=== PATIENT | female | born 1970 | race Hispanic/Latino ===

== ENCOUNTER 2018-01-02 07:34 | Emergency (ER) | payer OTHER ==
--- OUTSIDE RECORDS SUMMARY | 2018-01-02 07:40 | XMS REPORT ---
:1970 Author Organization [employer] Care Team Providers Name Role Phone Aung Dada Provider Role Unavailable Allergies No Known Allergies Problems Problem Type Condition Code Onset Dates Condition Status Problem Depression with anxiety F41.8 Active Problem HTN (hypertension), benign I10 Active Problem Seizures R56.9 Active Problem Dependent on wheelchair Z99.3 Active Problem Coronary artery disease involving I25.709 Active coronary bypass graft of [place] heart with angina pectoris Problem History of right above knee Z89.611 Active amputation Problem Chronic pain disorder G89.4 Active Problem History of CVA (cerebrovascular Z86.73 Active accident) Problem Migraine without aura and without G43.009 Active status migrainosus, not intractable Problem Neuropathy G62.9 Active Problem Type 2 diabetes mellitus with other E11.69 Active specified complication Problem Type 2 diabetes mellitus with E11.65 Active hyperglycemia Problem Hx of CABG Z95.1 Active 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
--- OUTSIDE RECORDS SUMMARY | 2018-01-02 07:40 | XMS REPORT ---
:1970 Author Organization [employer] Care Team Providers Name Role Phone Aung Dada Provider Role Unavailable Allergies, Adverse Reactions, Alerts Substance Reaction Event Type tramadol Info Not Available Drug Allergy Toradol Info Not Available Drug Allergy Problems Problem Type Condition Code Onset Dates Condition Status Assessment Above knee amputation of left lower Z89.612 Active extremity Problem Above knee amputation of left lower Z89.612 Active extremity Assessment History of CVA (cerebrovascular Z86.73 Active accident) Problem Migraine without aura and without G43.009 Active status migrainosus, not intractable Assessment Type 2 diabetes mellitus with E11.65 Active hyperglycemia Problem Type 2 diabetes mellitus with other E11.69 Active specified complication Problem Hx of CABG Z95.1 Active Problem Type 2 diabetes mellitus with E11.65 Active hyperglycemia Problem Chronic pain disorder G89.4 Active Problem History of CVA (cerebrovascular Z86.73 Active accident) 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 Assessment Migraine without aura and without G43.009 Active status migrainosus, not intractable Problem Neuropathy G62.9 Active Assessment Hx of CABG Z95.1 Active Problem Depression with anxiety F41.8 Active Problem 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 Problem HTN (hypertension), benign I10 Active Problem Seizures R56.9 Active Assessment HTN (hypertension), benign I10 Active Assessment Chronic pain disorder G89.4 Active Assessment Neuropathy G62.9 Active Assessment Seizures R56.9 Active Assessment Type 2 diabetes mellitus with other E11.69 Active specified complication Problem Coronary artery disease involving I25.709 Active coronary bypass graft of [place] heart with angina pectoris Assessment Depression with anxiety F41.8 Active Assessment Coronary artery disease involving I25.709 Active coronary bypass graft of [place] heart with angina pectoris Medications Medication Code Code Instructions Start End Status Dosage System Date Date Atorvastatin [facility] 03807212254 40 MG Orally Active 1 tablet Calcium Once a day Lexapro [facility] [place] 82057448353 20 MG Orally Active 1 tablet Once a day Levetiracetam [facility] [place] 14948784086 500 MG Orally Active 1 tablet Twice a day Metoprolol [facility] [place] 60174217667 25 MG Orally Active 1 tablet Tartrate Twice a day with food Ranexa [facility] [place] 30468826591 500 MG Orally Active 1 tablet Twice a day Klor-Con M10 [facility] [place] 90965561372 10 MEQ Orally Active 1 tablet Twice a day with food Insulin Aspart [facility] [place] [address]-08 (70-30) 100 Active 60 units Prot & Aspart UNIT/ML BID Subcutaneous Metformin HCl [facility] [place] 41874577726 500 MG Orally Active 1 tablet Twice a day with meals Aspirin [facility] [place] 91597321336 81 MG Orally Active 1 tablet Once a day Gabapentin [facility] [place] 80382718452 800 MG Orally Active 1 tablet Three times a day Furosemide [facility] [place] 12915082509 20 MG Orally Active 1 tablet Once a day Pantoprazole [facility] [place] 41504451581 40 MG Orally Active 1 tablet Sodium Once a day Duloxetine HCl [facility] [place] 24684468430 30 MG Orally Active 1 capsule Twice a day Xanax [facility] [place] 34858215137 0.5 MG Orally Active 1 tablet Twice a day Clopidogrel [facility] [place] 81354481242 75 MG Orally Active 1 tablet Bisulfate Once a day Results No Known Results Summary Purpose [employer]ClinicalWorks Submission
--- OUTSIDE RECORDS SUMMARY | 2018-01-02 07:40 | XMS REPORT ---
[...] involving I25.709 Active coronary bypass graft of [place] heart with angina pectoris Problem History of right above knee Z89.611 Active amputation Problem Chronic pain disorder G89.4 Active Problem History of CVA (cerebrovascular Z86.73 Active accident) Problem Migraine without aura and without G43.009 Active status migrainosus, not intractable Problem Neuropathy G62.9 Active Assessment History of right above knee Z89.611 Active amputation Assessment Type 2 diabetes mellitus with other E11.69 Active specified complication Problem Type 2 diabetes mellitus with other E11.69 Active specified complication Problem Type 2 diabetes mellitus with E11.65 Active hyperglycemia Assessment Dependent on wheelchair Z99.3 Active Problem Hx of CABG Z95.1 Active 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 Medications Medication Code Code Instructions Start End Status Dosage System Date Date Metoprolol [facility] 20732517871 25 MG Orally Active 1 tablet Tartrate Twice a day with food Pantoprazole [facility] 49975082063 40 MG Orally Active 1 tablet Sodium Once a day Gabapentin [facility] 01990631062 800 MG Orally Active 1 tablet Three times a day Duloxetine HCl [facility] 03949690794 30 MG Orally Active 1 capsule Twice a day Aspirin [facility] 73417216072 81 MG Orally Active 1 tablet Once a day Insulin Aspart [facility] [address]-02 (70-30) 100 Active 60 units Prot & Aspart UNIT/ML BID Subcutaneous Ranexa [facility] 84955819019 500 MG Orally Active 1 tablet Twice a day Levetiracetam [facility] 06406581599 500 MG Orally Active 1 tablet Twice a day Lexapro [facility] 46597926862 20 MG Orally Active 1 tablet Once a day Xanax [facility] 35826936988 0.5 MG Orally Active 1 tablet Twice a day Clopidogrel [facility] 38189560448 75 MG Orally Active 1 tablet Bisulfate Once a day Klor-Con M10 [facility] 98628175182 10 MEQ Orally Active 1 tablet Twice a day with food Furosemide [facility] 34290368864 20 MG Orally Active 1 tablet Once a day Metformin HCl [facility] 97266229323 500 MG Orally Active 1 tablet Twice a day with meals Atorvastatin [facility] 18976654879 40 MG Orally Active 1 tablet Calcium Once a day Results No Known Results Summary Purpose [employer]ClinicalWorks Submission
[2018-01-02] MEDS ORDERED: PHENAZOPYRIDINE 100MG TAB PO ONE (08:23)
[2018-01-02] MEDS ORDERED: NA CHLORIDE 0.9% 1,000 ML ONE (08:24)
[2018-01-02] MEDS ORDERED: CEFTRIAXONE/SWI 1gm 1 GM/10 ML SYR ONE (08:24)
[2018-01-02 08:25] LABS: Urine Blood 2+ (NEG); Urine Glucose 1+ (NEG); Urine Protein 2+ (NEG); Urine Specific Gravity 1.015 (1.005-1.030)
[2018-01-02 08:34] LABS: Urine Bacteria LOADED /HPF (<20); Urine Culture Reflex Order REFLEXED; Urine RBC <5 /HPF (NONE SEEN)
[2018-01-02 08:45] LABS: Absolute Monocytes 0.4 K/uL (0.1-1.3); Absolute Neutrophil 5.2 K/uL (1.8-8.0); Basophils % 1.2 % (0-1.3); Eosinophils % 7.3 % (0-4.4); Hematocrit 43.3 % (36.0-45.0); Lymphocytes % 24.1 % (15.3-44.8); MCH 30.5 pg (27.0-35.0); MCV 88.3 fL (80-100); MPV 8.9 fL (7.6-11.3); Monocytes % 5.3 % (3.3-12.3); RBC Red Blood Cell Count 4.91 M/uL (3.86-4.86)
[2018-01-02] MEDS ORDERED: MORPHINE 4 MG/ML SYR ONE (08:49)
[2018-01-02 09:01] LABS: Albumin 3.1 g/dL (3.4-5.0); Bilirubin Direct 0.1 mg/dL (0-0.2); Bilirubin Total 0.3 mg/dL (0.2-1.0); Protein, Total 7.4 g/dL (6.4-8.2)
--- NOTE | 2018-01-02 09:48 | ER ---
Nurse's Notes [facility] Name: Karen Shah Age: 47 yrs Sex: Female : 1970 Arrival Date: 01/02/2018 Time: 07:40 Bed 6 Private MD: Dada Horan Diagnosis: Urinary tract infection, site not specified Presentation: 01/02 07:48 Presenting complaint: Patient states: unable to urinate since 1300 this morning. Pt ss also reports significant pressure "down there". Denies fever. Pt reports she has had intermittent blood in her urine for months and has been seeing a doctor for this, however they have not figured out what may be going on as of yet. Transition of care: patient was not received from another setting of care. Onset of symptoms was January 02, 2018. Risk Assessment: Do you want to hurt yourself or someone else? Patient reports no desire to harm self or others. Initial Sepsis Screen: Does the patient meet any 2 criteria? No. Patient's initial sepsis screen is negative. Does the patient have a suspected source of infection? No. Patient's initial sepsis screen is negative. Care prior to arrival: 07:48 Method Of Arrival: Wheelchair ss 07:48 Acuity: ARIEL 3 ss Historical: - Allergies: 07:50 Toradol; ss 07:50 tramadol; ss - PMHx: 07:50 CVA; Diabetes - IDDM; Hypertension; Myocardial infarction; CAD; High Cholesterol; ss - PSHx: 07:50 CABG; R AKA; ss - Immunization history:: Adult Immunizations up to date. - Social history:: Smoking status: Patient uses tobacco products, smokes one-half pack cigarettes per day. - Ebola Screening: : Patient denies exposure to infectious person Patient denies travel to an Ebola-affected area in the 21 days before illness onset. Screenin:36 Abuse screen: Denies threats or abuse. Denies injuries from another. Nutritional jl7 screening: No deficits noted. Tuberculosis screening: No symptoms or risk factors identified. Fall Risk IV access (20 points). Assessment: 08:00 General: Appears in no apparent distress. uncomfortable, Behavior is cooperative, jl7 anxious. Pain: Complains of pain in pelvis Pain does not radiate. Pain currently is 9 out of 10 on a pain scale. Quality of pain is described as pressure, Pain began couple weeks ago Is intermittent. Neuro: Level of Consciousness is awake, alert, obeys commands, Oriented to person, place, time, situation. Cardiovascular: Patient's skin is warm and dry. Respiratory: Airway is patent Respiratory effort is even, unlabored, Respiratory pattern is regular, symmetrical. GI: Abdomen is round non-distended, Bowel sounds present X 4 quads. Abd is soft and non tender. : Urine is cloudy, Reports pain urgency, urinary frequency. EENT: No signs and/or symptoms were reported regarding the EENT system. Derm: Skin is pink, warm \\T\\ dry. Musculoskeletal: right BKA. 09:00 Reassessment: No changes from previously documented assessment. Patient and/or family jl7 updated on plan of care and expected duration. Pain level reassessed. Patient is alert, oriented x 3, equal unlabored respirations, skin warm/dry/pink. 09:55 Reassessment: Pt will be discharged once NS infusion is completed. jl7 Vital Signs: 07:50 BP 125 / 84; Pulse 78; Resp 18; Temp 97.0(TE); Pulse Ox 98% on R/A; Weight 77.11 kg; ss Height 5 ft. 4 in. (162.56 cm); 07:51 Pain 10/10; ss 09:00 BP 117 / 65; Pulse 68; Resp 16; Pulse Ox 95% on R/A; jl7 09:41 BP 113 / 63; Pulse 65; Resp 16; Pulse Ox 95% on R/A; jl7 11:04 BP 112 / 74; Pulse 72; Resp 18; Pulse Ox 95% on R/A; ag 07:50 Body Mass Index 29.18 (77.11 kg, 162.56 cm) ED Course: 07:40 Patient arrived in ED. sb2 07:41 Dada Horan DO is Private Physician. sb2 07:47 Isidro Mcdaniel PA is PHCP. cp 07:48 Leopoldo Nixon MD is Attending Physician. cp 07:49 Triage completed. ss 07:50 Arm band placed on right wrist. ss 08:00 Patient has correct armband on for positive identification. Placed in gown. Bed in low jl7 position. Call light in reach. Side rails up X 1. Pulse ox on. NIBP on. 08:00 Bladder scan completed. 0 mL. jl7 08:15 Assisted to bathroom. jl7 08:20 Urine Dipstick--Ancillary (enter results) Sent. ag 08:30 Initial lab(s) drawn, by me, sent to lab. Inserted saline lock: 22 gauge in right jl7 forearm, using aseptic technique. Blood collected. 08:31 Saqib Ren, RN is Primary Nurse. jl7 09:00 Assisted to bathroom. jl7 09:50 Assisted to bathroom. jl7 11:09 IV discontinued, intact, bleeding controlled, No redness/swelling at site. Pressure dm5 dressing applied. 11:10 No provider procedures requiring assistance completed. dm5 Administered Medications: 08:20 Drug: Pyridium 200 mg Route: PO; jl7 09:15 Follow up: Response: No adverse reaction; Pain is unchanged, physician notified jl7 08:42 Drug: NS 0.9% 1000 ml Route: IV; Rate: 1 bolus; Site: right forearm; jl7 08:43 Drug: Rocephin - (cefTRIAXone) 1 grams Route: IVPB; Infused Over: 30 mins; Site: right jl7 forearm; 08:45 Follow up: IV Status: Completed infusion jl7 09:45 Follow up: Response: No adverse reaction jl7 08:45 Drug: morphine 2 mg Route: IVP; Site: right forearm; jl7 09:15 Follow up: Response: No adverse reaction; Pain is unchanged, physician notified jl7 09:58 Drug: Tylenol #3 (300 mg-30 mg) 2 tabs Route: PO; jl7 10:30 Follow up: Response: No adverse reaction; Pain is decreased jl7 Point of Care Testing: Blood Glucose: 07:52 Blood Glucose: 228 mg/dL; ag Ranges: Outcome: 09:47 Discharge ordered by . cp 11:09 Discharged to home via wheelchair, with family. dm5 11:09 Condition: good 11:09 Discharge instructions given to patient, family, Instructed on discharge instructions, follow up and referral plans. medication usage, Demonstrated understanding of instructions, follow-up care, medications, Prescriptions given X 2. 11:10 Patient left the ED. dm5 Signatures: Latonya Gary RN RN dm5 Smirch, Shelby, RN RN ss Gallardo, Ana ag Page, Corey, PA PA cp Leal, Jahala, RN RN jl7 Winter Monteiro sb2 Corrections: (The following items were deleted from the chart) : 09:36 Patient has correct armband on for positive identification. Placed in gown. Bed jl7 in low position. Call light in reach. Side rails up X 1. jl7 : 09:36 Pulse ox on. NIBP on. 7 jl7
--- NOTE | 2018-01-02 09:48 | EDPHYS ---
Physician Documentation [facility] Name: Karen Shah Age: 47 yrs Sex: Female : 1970 Arrival Date: 01/02/2018 Time: 07:40 Bed 6 Private MD: Dada Horan ED Physician Leopoldo Nixon HPI: 01/02 08:17 This 47 yrs old Female presents to ER via Wheelchair with complaints of cp Urinary Problem. 08:17 The patient presents with urinary symptoms, dysuria, frequency, urgency, suprapubic cp pain. Onset: The symptoms/episode began/occurred this morning. Associated signs and symptoms: Pertinent negatives: constipation, diarrhea, fever, vaginal bleeding, vaginal discharge, vomiting. Severity of symptoms: in the emergency department the symptoms are unchanged, despite home interventions. 08:17 Patient reports she is currently taking unknown antibiotic. cp Historical: - Allergies: 07:50 Toradol; ss 07:50 tramadol; ss - PMHx: 07:50 CVA; Diabetes - IDDM; Hypertension; Myocardial infarction; CAD; High Cholesterol; ss - PSHx: 07:50 CABG; R AKA; ss - Immunization history:: Adult Immunizations up to date. - Social history:: Smoking status: Patient uses tobacco products, smokes one-half pack cigarettes per day. - Ebola Screening: : Patient denies exposure to infectious person Patient denies travel to an Ebola-affected area in the 21 days before illness onset. ROS: 08:20 Constitutional: Negative for body aches, chills, fever, poor PO intake. cp 08:20 Eyes: Negative for injury, pain, redness, and discharge. cp 08:20 ENT: Negative for drainage from ear(s), ear pain, sore throat, difficulty swallowing, difficulty handling secretions. 08:20 Neck: Negative for pain with movement, pain at rest, stiffness, tenderness. 08:20 Cardiovascular: Negative for chest pain, edema, palpitations. 08:20 Respiratory: Negative for cough, shortness of breath, wheezing. 08:20 Abdomen/GI: Negative for nausea, vomiting, and diarrhea, constipation, anorexia, black/tarry stool, rectal bleeding. 08:20 : Positive for urinary symptoms, suprapubic pain, Negative for flank pain, vaginal bleeding, vaginal discharge. 08:20 Skin: Negative for cellulitis, rash. 08:20 Neuro: Negative for altered mental status, headache, syncope, near syncope, weakness. 08:20 All other systems are negative. Exam: 08:27 Constitutional: The patient appears in no acute distress, alert, awake, non-toxic, well cp developed, well nourished, uncomfortable. 08:27 Head/Face: Normocephalic, atraumatic. cp 08:27 Eyes: Periorbital structures: appear normal, Conjunctiva: normal, no exudate, no injection, Lids and lashes: appear normal, bilaterally. 08:27 ENT: External ear(s): are unremarkable, TM's: are normal, no evidence of bulging, no dullness, no erythema, Nose: is normal, Mouth: Lips: moist, Oral mucosa: pink and intact, moist, Posterior pharynx: is normal, airway is patent. 08:27 Neck: ROM/movement: is normal, is supple, without pain, no range of motions limitations, no nuchal rigidity. 08:27 Chest/axilla: Inspection: normal, Palpation: is normal, no crepitus, no tenderness. 08:30 Cardiovascular: Rate: normal, Rhythm: regular. cp 08:30 Respiratory: the patient does not display signs of respiratory distress, Respirations: cp normal, no use of accessory muscles, no retractions, no splinting, no tachypnea, labored breathing, is not present, Breath sounds: are clear throughout, no decreased breath sounds, no stridor, no wheezing. 08:30 Abdomen/GI: Inspection: abdomen appears normal, Bowel sounds: active, all quadrants, Palpation: soft, in all quadrants, severe abdominal tenderness, in the suprapubic area, rebound tenderness, is not appreciated, voluntary guarding, is elicited in the suprapubic area, involuntary guarding, is not appreciated. 08:30 Back: pain, is absent, ROM is normal, CVA tenderness, is absent. 08:30 Skin: cellulitis, is not appreciated, no rash present. Vital Signs: 07:50 BP 125 / 84; Pulse 78; Resp 18; Temp 97.0(TE); Pulse Ox 98% on R/A; Weight 77.11 kg; ss Height 5 ft. 4 in. (162.56 cm); 07:51 Pain 10/10; ss 09:00 BP 117 / 65; Pulse 68; Resp 16; Pulse Ox 95% on R/A; jl7 09:41 BP 113 / 63; Pulse 65; Resp 16; Pulse Ox 95% on R/A; jl7 11:04 BP 112 / 74; Pulse 72; Resp 18; Pulse Ox 95% on R/A; ag 07:50 Body Mass Index 29.18 (77.11 kg, 162.56 cm) ss MDM: 07:48 Patient medically screened. cp 08:19 Differential diagnosis: kidney stone, pelvic inflammatory disease, urinary tract cp infection, sepsis, pyelonephritis. 09:45 Data reviewed: vital signs, nurses notes, old medical records, lab test result(s), and cp as a result, I will discharge patient. 09:45 Counseling: I had a detailed discussion with the patient and/or guardian regarding: the cp historical points, exam findings, and any diagnostic results supporting the discharge/admit diagnosis, lab results, the need for outpatient follow up, a family practitioner, to return to the emergency department if symptoms worsen or persist or if there are any questions or concerns that arise at home. Response to treatment: the patient's symptoms have markedly improved after treatment, and as a result, I will discharge patient. 01/02 07:52 Order name: Glucose, Ancillary Testing; Complete Time: 08:42 EDMS 01/02 08:42 Interpretation: Abnormal: GLUC,ANCIL 228. cp 08 07:55 Order name: Amylase, Serum; Complete Time: 09:32 cp 01/02 07:55 Order name: Basic Metabolic Panel; Complete Time: 09:32 cp 01/02 07:55 Order name: CBC with Diff; Complete Time: 09:32 cp 01/02 07:55 Order name: Creatinine for Radiology; Complete Time: 09:32 cp 01/02 07:55 Order name: Hepatic Function; Complete Time: 09:32 cp 01/02 07:55 Order name: Lipase; Complete Time: 09:32 cp 01/02 07:55 Order name: Urine Microscopic Only; Complete Time: 08:42 cp 08 08:42 Interpretation: Normal except: UWBC TNTC; UBACT LOADED. cp 08 07:55 Order name: Test, Serum; Complete Time: 09:32 cp 01/02 08:09 Order name: Urine Dipstick--Ancillary (enter results); Complete Time: 08:42 eb 01/02 08:42 Interpretation: Normal except: UGLUC 1+; UBLD 2+; UPROT 2+; U NIT POSITIVE; UESTR 3+. cp 01/02 08:23 Order name: Procalcitonin; Complete Time: 09:42 cp 01/02 09:43 Interpretation: Within normal limits: Procalcitonin < 0.05. cp 01/02 08:23 Order name: Lactate; Complete Time: 09:32 cp 01/02 08:23 Order name: Blood Culture Adult (2) cp 01/02 08:36 Order name: Urine Culture EDMS 01/02 07:48 Order name: Accucheck Blood Glucose; Complete Time: 07:53 cp 01/02 07:48 Order name: Bladder Scanner: pre and post urination; Complete Time: 09:49 cp 01/02 07:55 Order name: IV Saline Lock; Complete Time: 09:49 cp 01/02 07:55 Order name: Labs collected and sent; Complete Time: 09:49 cp 01/02 07:55 Order name: Urine Dipstick-Ancillary (obtain specimen); Complete Time: 09:49 cp Administered Medications: 08:20 Drug: Pyridium 200 mg Route: PO; jl7 09:15 Follow up: Response: No adverse reaction; Pain is unchanged, physician notified jl7 08:42 Drug: NS 0.9% 1000 ml Route: IV; Rate: 1 bolus; Site: right forearm; jl7 08:43 Drug: Rocephin - (cefTRIAXone) 1 grams Route: IVPB; Infused Over: 30 mins; Site: right jl7 forearm; 08:45 Follow up: IV Status: Completed infusion jl7 09:45 Follow up: Response: No adverse reaction jl7 08:45 Drug: morphine 2 mg Route: IVP; Site: right forearm; jl7 09:15 Follow up: Response: No adverse reaction; Pain is unchanged, physician notified jl7 09:58 Drug: Tylenol #3 (300 mg-30 mg) 2 tabs Route: PO; jl7 10:30 Follow up: Response: No adverse reaction; Pain is decreased jl7 Point of Care Testing: Blood Glucose: 07:52 Blood Glucose: 228 mg/dL; ag Ranges: Critical Glucose Levels:Adult <50 mg/dl or >400 mg/dl <40 mg/dl or >180 mg/dl Disposition: 18:39 Co-signature as Attending Physician, Leopoldo Nixon MD. rn Disposition: 01/02/18 09:47 Discharged to Home. Impression: Urinary tract infection, site not specified. - Condition is Stable. - Discharge Instructions: Urinary Tract Infection, Adult. - Prescriptions for Pyridium 200 mg Oral Tablet - take 1 tablet by ORAL route every 8 hours for 2 days; 6 tablet. cefpodoxime 200 mg Oral Tablet - take 1 tablet by ORAL route every 12 hours for 10 days with food; 20 tablet. - Work release form, Family Work Release, Medication Reconciliation Form, Thank You Letter, Antibiotic Education, Prescription Opioid Use form. - Follow up: Private Physician; When: 2 - 3 days; Reason: Recheck today's complaints. - Problem is an ongoing problem. - Symptoms have improved. Signatures: Dispatcher [employer] EDDE Latonya Gary RN RN dm5 Leopoldo Nixon MD MD rn Smirch, Shelby, RN RN ss Page, Corey, PA PA cp Leal, Jahala RN RN jl7 Corrections: (The following items were deleted from the chart) 11:10 09:47 01/02/2018 09:47 Discharged to Home. Impression: Urinary tract infection, site dm5 not specified. Condition is Stable. Forms are Medication Reconciliation Form, Thank You Letter, Antibiotic Education, Prescription Opioid Use. Follow up: Private Physician; When: 2 - 3 days; Reason: Recheck today's complaints. Problem is an ongoing problem. Symptoms have improved. cp 01/03 10:03 01/02 08:27 Cardiovascular: Rate: cp cp
[2018-01-02] MEDS ORDERED: CODEINE 30MG/APAP 300MG TAB ONE (09:58)
[2018-01-02 11:14] VITALS: TEMP 97
[2018-01-02 11:16] VITALS: O2SAT 95
[2018-01-02 11:18] VITALS: BP 112/74
== END 2018-01-02 11:10 | disposition home or self-care (01) ==
LOC: ER 07:34
DX: N39.0 Urinary tract infection, site not specified (principal); I10 Essential (primary) hypertension; F17.210 Nicotine dependence, cigarettes, uncomplicated; Z88.5 Allergy status to narcotic agent; Z88.6 Allergy status to analgesic agent; Z95.1 Presence of aortocoronary bypass graft
CPT/HCPCS: 36415; 80048; 80076; 82150; 82962; 83605; 83690; 84145; 84703; 85025; 87040 ×2; 87086; 87088; J0696; J7030; 81003; 81015; 96374; 96375; 99284

== ENCOUNTER 2018-06-07 23:24 | Observation (INO) | payer OTHER ==
--- OUTSIDE RECORDS SUMMARY | 2018-06-07 23:26 | XMS REPORT ---
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 Medications Medication Code Code Instructions Start End Status Dosage System Date Date Metoprolol [facility] 74782059427 25 MG Orally Active 1 tablet Tartrate Twice a day with food Pantoprazole [facility] 35525968028 40 MG Orally Active 1 tablet Sodium Once a day Gabapentin [facility] 05373474484 800 MG Orally Active 1 tablet Three times a day Duloxetine HCl [facility] 03601461167 30 MG Orally Active 1 capsule Twice a day Aspirin [facility] 94451295700 81 MG Orally Active 1 tablet Once a day Insulin Aspart [facility] [address]-71 (70-30) 100 Active 60 units Prot & Aspart UNIT/ML BID Subcutaneous Ranexa [facility] 05191823012 500 MG Orally Active 1 tablet Twice a day Levetiracetam [facility] 26796814239 500 MG Orally Active 1 tablet Twice a day Lexapro [facility] 33066795755 20 MG Orally Active 1 tablet Once a day Xanax [facility] 17908851101 0.5 MG Orally Active 1 tablet Twice a day Clopidogrel [facility] 86582073198 75 MG Orally Active 1 tablet Bisulfate Once a day Klor-Con M10 [facility] 36411338316 10 MEQ Orally Active 1 tablet Twice a day with food Furosemide [facility] 73925727439 20 MG Orally Active 1 tablet Once a day Metformin HCl [facility] 49658779004 500 MG Orally Active 1 tablet Twice a day with meals Atorvastatin [facility] 91952897738 40 MG Orally Active 1 tablet Calcium Once a day Results No Known Results Summary Purpose eClinicalWorks Submission
--- OUTSIDE RECORDS SUMMARY | 2018-06-07 23:26 | XMS REPORT ---
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 Problem HTN (hypertension), benign I10 Active Problem Seizures R56.9 Active Assessment HTN (hypertension), benign I10 Active Assessment Chronic pain disorder G89.4 Active Assessment Neuropathy G62.9 Active Assessment Seizures R56.9 Active Assessment Type 2 diabetes mellitus with other E11.69 Active specified complication Problem Coronary artery disease involving I25.709 Active coronary bypass graft of [place] heart with angina pectoris Assessment Depression with anxiety F41.8 Active Assessment Coronary artery disease involving I25.709 Active coronary bypass graft of [place] heart with angina pectoris Medications Medication Code Code Instructions Start End Status Dosage System Date Date Atorvastatin [facility] 07380686472 40 MG Orally Active 1 tablet Calcium Once a day Lexapro [facility] 78522561092 20 MG Orally Active 1 tablet Once a day Levetiracetam [facility] 06331142043 500 MG Orally Active 1 tablet Twice a day Metoprolol [facility] 66457529005 25 MG Orally Active 1 tablet Tartrate Twice a day with food Ranexa [facility] 81602655619 500 MG Orally Active 1 tablet Twice a day Klor-Con M10 [facility] 59224462768 10 MEQ Orally Active 1 tablet Twice a day with food Insulin Aspart [facility] [address]-51 (70-30) 100 Active 60 units Prot & Aspart UNIT/ML BID Subcutaneous Metformin HCl [facility] 97777543459 500 MG Orally Active 1 tablet Twice a day with meals Aspirin [facility] 04390175742 81 MG Orally Active 1 tablet Once a day Gabapentin [facility] 19676119064 800 MG Orally Active 1 tablet Three times a day Furosemide [facility] 73535290983 20 MG Orally Active 1 tablet Once a day Pantoprazole [facility] 12950297776 40 MG Orally Active 1 tablet Sodium Once a day Duloxetine HCl [facility] 17871070029 30 MG Orally Active 1 capsule Twice a day Xanax [facility] 72874644078 0.5 MG Orally Active 1 tablet Twice a day Clopidogrel [facility] 20334559983 75 MG Orally Active 1 tablet Bisulfate Once a day Results No Known Results Summary Purpose eClinicalWorks Submission
--- OUTSIDE RECORDS SUMMARY | 2018-06-07 23:26 | XMS REPORT ---
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
--- OUTSIDE RECORDS SUMMARY | 2018-06-07 23:26 | XMS REPORT ---
:1970 [facility] Address [address] [place] [address] Care Team Providers Name Role Phone Unavailable Unavailable Unavailable Problems This patient has no known problems. Allergies, Adverse Reactions, Alerts This patient has no known allergies or adverse reactions. Medications This patient has no known medications.
[2018-06-08] MEDS ORDERED: ASPIRIN 81 MG CHEWABLE TABLET ONE (00:23)
[2018-06-08 00:33] LABS: Absolute Lymphocytes (CBC) 2.6 K/uL (0.7-4.9); Absolute Monocytes 0.6 K/uL (0.1-1.3); Absolute Neutrophil 6.9 K/uL (1.8-8.0); Basophils % 0.8 % (0-1.3); Eosinophils % 3.8 % (0-4.4); Hematocrit 45.4 % (36.0-45.0); Lymphocytes % 24.4 % (15.3-44.8); MPV 9.4 fL (7.6-11.3); RBC Red Blood Cell Count 5.01 M/uL (3.86-4.86)
[2018-06-08 00:50] LABS: ALT/SGPT 23 U/L (12-78); AST/SGOT 12 U/L (15-37); Albumin 3.2 g/dL (3.4-5.0); Alkaline Phosphatase 97 U/L (45-117); BUN Blood Urea Nitrogen 17 mg/dL (7-18); Bicarbonate 26 mmol/L (21-32); Bilirubin Direct < 0.1 mg/dL (0-0.2); Bilirubin Total 0.4 mg/dL (0.2-1.0); Glucose Level 273 mg/dL (74-106); NT PRO-BNP 387 pg/mL (<125); Potassium 3.4 mmol/L (3.5-5.1); Protein, Total 7.5 g/dL (6.4-8.2); Sodium Level 136 mmol/L (136-145); Troponin (Emerg Dept Use Only) < 0.02 ng/mL (0.0-0.045)
[2018-06-08] MEDS ORDERED: ONDANSETRON 4 MG/2 ML VIAL ONE ×2 (00:50→08:26)
--- NOTE | 2018-06-08 01:54 | EDPHYS ---
Physician Documentation [facility] Name: Karen Shah Age: 48 yrs Sex: Female : 1970 Arrival Date: 06/07/2018 Time: 23:28 Bed 7 Private MD: ED Physician Trevor Salamanca HPI: 06/08 01:29 This 48 yrs old Female presents to ER via EMS with complaints of Altered ca Mental Status, Chest Pain. 01:29 The patient or guardian reports chest pain that is located primarily in the substernal ca area. Onset: 4 day(s) ago, on and off. The pain does not radiate. Associated signs and symptoms: Pertinent positives: shortness of breath, Pertinent negatives: cough, syncope, vomiting. The chest pain is described as a pressure. Duration: The patient or guardian reports multiple episodes, that wax and wane, the episodes last approximately 20 minute(s). Modifying factors: The symptoms are alleviated by nothing. the symptoms are aggravated by nothing. Severity of pain: At its worst the pain was moderate in the emergency department the pain has resolved. The patient has experienced similar episodes in the past, several times, h/o ND. The patient has not recently seen a physician. per EMS, pt showed AMS at their arrival with waxing and waning symptoms. . 01:54 EMS care prior to arrival includes: transported pt. ca Historical: - Allergies: 06/07 23:35 Toradol; tl2 23:35 tramadol; tl2 - Home Meds: 23:35 gabapentin oral oral [Active]; atorvastatin oral oral [Active]; [place] Oral [Active]; tl2 Furosemide Oral [Active]; clopidogrel oral oral [Active]; Isosorbide Mononitrate Oral [Active]; duloxetine oral oral [Active]; Metformin Oral [Active]; escitalopram oxalate oral oral [Active]; Nitroglycerin TD [Active]; - PMHx: 23:35 CAD; CVA; Diabetes - IDDM; High Cholesterol; Hypertension; Myocardial infarction; tl2 - PSHx: 23:35 triple bypass; tl2 - Immunization history:: Adult Immunizations up to date. - Social history:: Smoking status: Patient/guardian denies using tobacco. - Ebola Screening: : No symptoms or risks identified at this time. ROS: 06/08 01:35 Constitutional: Negative for fever, chills, and weight loss, Eyes: Negative for injury, wa pain, redness, and discharge, ENT: Negative for injury, pain, and discharge, Neck: Negative for injury, pain, and swelling, Respiratory: Negative for shortness of breath, cough, wheezing, and pleuritic chest pain, Abdomen/GI: Negative for abdominal pain, nausea, vomiting, diarrhea, and constipation, Back: Negative for injury and pain, : Negative for injury, bleeding, discharge, and swelling, MS/Extremity: Negative for injury and deformity, Skin: Negative for injury, rash, and discoloration, Neuro: Negative for headache, weakness, numbness, tingling, and seizure, Psych: Negative for depression, anxiety, suicide ideation, homicidal ideation, and hallucinations. Cardiovascular: Positive for chest pain, Negative for edema, orthopnea, palpitations. All other systems are negative. Exam: 01:35 Constitutional: This is a well developed, well nourished patient who is awake, alert, wa and in no acute distress. Head/Face: Normocephalic, atraumatic. Eyes: Pupils equal round and reactive to light, extra-ocular motions intact. Lids and lashes normal. Conjunctiva and sclera are non-icteric and not injected. Cornea within normal limits. Periorbital areas with no swelling, redness, or edema. ENT: Nares patent. No nasal discharge, no septal abnormalities noted. Tympanic membranes are normal and external auditory canals are clear. Oropharynx with no redness, swelling, or masses, exudates, or evidence of obstruction, uvula midline. Mucous membranes moist. Neck: Trachea midline, no thyromegaly or masses palpated, and no cervical lymphadenopathy. Supple, full range of motion without nuchal rigidity, or vertebral point tenderness. No Meningismus. Chest/axilla: Normal chest wall appearance and motion. Nontender with no deformity. No lesions are appreciated. Respiratory: Lungs have equal breath sounds bilaterally, clear to auscultation and percussion. No rales, rhonchi or wheezes noted. No increased work of breathing, no retractions or nasal flaring. Abdomen/GI: Soft, non-tender, with normal bowel sounds. No distension or tympany. No guarding or rebound. No evidence of tenderness throughout. Back: No spinal tenderness. No costovertebral tenderness. Full range of motion. Skin: Warm, dry with normal turgor. Normal color with no rashes, no lesions, and no evidence of cellulitis. MS/ Extremity: Pulses equal, no cyanosis. Neurovascular intact. Full, normal range of motion. Neuro: Awake and alert, GCS 15, oriented to person, place, time, and situation. Cranial nerves II-XII grossly intact. Motor strength 5/5 in all extremities. Sensory grossly intact. Cerebellar exam normal. Normal gait. Psych: Awake, alert, with orientation to person, place and time. Behavior, mood, and affect are within normal limits. 01:35 Cardiovascular: Rate: normal, Rhythm: regular, Pulses: no pulse deficits are appreciated, Heart sounds: normal, Edema: is not appreciated. Vital Signs: 06/07 23:35 BP 147 / 77; Pulse 91; Resp 20; Temp 98.5(O); Pulse Ox 96% on R/A; Weight 77.11 kg; tl2 Height 5 ft. 4 in. (162.56 cm); Pain 01/05; 06/08 00:17 BP 128 / 80; Pulse 99; Resp 17; Pulse Ox 99% on R/A; ea 01:15 BP 114 / 73; Pulse 109; Resp 18; Pulse Ox 98% on R/A; ea 02:00 BP 102 / 67; Pulse 101; Resp 18; Pulse Ox 97% on R/A; ea 06:11 BP 90 / 62; Pulse 99; Resp 19; Pulse Ox 94% on R/A; tl2 06/07 23:35 Body Mass Index 29.18 (77.11 kg, 162.56 cm) tl2 MDM: 06/07 23:49 Patient medically screened. wa 06/08 01:35 Differential diagnosis: work up to r/o acute cardiopulm. pathology. will admit for r/o wa ACS if negative. 01:52 Data reviewed: vital signs, nurses notes, lab test result(s), EKG, radiologic studies. ca Test interpretation: by ED physician or midlevel provider: EKG: HR 99. LVH. diffuse ST-T changes. Response to treatment: the patient's symptoms have markedly improved after treatment. Physician consultation: Audi Benitez MD. 01:56 Data reviewed: lab test result(s). Test interpretation: by ED physician or midlevel ca provider: hyperglycemia. CXR: no acute process. 06/08 00:09 Order name: Basic Metabolic Panel; Complete Time: 01:49 ca 06/08 00:09 Order name: CBC with Diff; Complete Time: :49 ca 06/08 00:09 Order name: LFT's; Complete Time: :49 ca 06/08 00:09 Order name: NT PRO-BNP; Complete Time: :49 ca 06/08 00:09 Order name: PT-INR ca 06/08 00:09 Order name: Troponin (emerg Dept Use Only); Complete Time: :49 ca 06/08 00:09 Order name: XRAY Chest (1 view) ca 06/08 08:21 Order name: Troponin I [facility] 06/08 08:21 Order name: Lipid Profile [facility] 06/08 08:37 Order name: Hemoglobin A1c [facility] 06/08 08:58 Order name: Urine Dipstick--Ancillary (enter results) 06/08 09:00 Order name: Urine --Ancillary (enter results) 06/08 09:14 Order name: Urine --Ancillary [facility] 06/08 09:17 Order name: Urine Dipstick-Ancillary [facility] 06/08 00:09 Order name: EKG; Complete Time: 00: ca 06/08 00:09 Order name: Cardiac monitoring; Complete Time: 00: ca 06/08 00:09 Order name: EKG - Nurse/Tech; Complete Time: 00: ca 06/08 00:09 Order name: IV Saline Lock; Complete Time: 00: ca 06/08 00:09 Order name: Labs collected and sent; Complete Time: 00: ca 06/08 00:09 Order name: O2 Per Protocol; Complete Time: 00: ca 06/08 00:09 Order name: O2 Sat Monitoring; Complete Time: 00:10 ca Administered Medications: 00:16 Drug: Aspirin Chewable Tablet 162 mg Route: PO; ea 00:44 Follow up: Response: No adverse reaction ea 00:44 Drug: Zofran 4 mg Route: IVP; Site: left antecubital; ea 01:15 Follow up: Response: No adverse reaction; Nausea is decreased ea 02:30 Drug: morphine 4 mg Route: IVP; Site: left antecubital; ea 03:00 Follow up: Response: No adverse reaction; Pain is decreased tl2 05:00 Drug: morphine 2 mg Route: IVP; Site: left antecubital; tl2 05:30 Follow up: Response: No adverse reaction; Pain is decreased tl2 Disposition: 06/08/18 01:54 Hospitalization ordered by Audi Benitez for Observation. Preliminary diagnosis are Chest pain, Hyperglycemia. - Bed requested for Telemetry/MedSurg (observation). - Status is Observation. aj1 - Condition is Stable. - Problem is new. - Symptoms have improved. UTI on Admission? No Signatures: Dispatcher [employer] EDMS Anjali Cespedes Angela, RN RN aj1 Syeda Steen RN Marlen Burgess RN CHIDI tl2 Diana Miranda RN RN ea Appiah, William, MD MD wa Corrections: (The following items were deleted from the chart) 05:38 01:54 Hospitalization Ordered by Audi Benitez MD for Observation. Preliminary kl diagnosis is Chest pain; Hyperglycemia. Bed requested for Telemetry/MedSurg (observation). Status is Observation. Condition is Stable. Problem is new. Symptoms have improved. UTI on Admission? No. wa 11:39 05:38 06/08/2018 01:54 Hospitalization Ordered by Audi Benitez MD for Observation. bd Preliminary diagnosis is Chest pain; Hyperglycemia. Bed requested for [facility] ER HOLD. Status is Observation. Condition is Stable. Problem is new. Symptoms have improved. UTI on Admission? No. kl 13:05 11:39 06/08/2018 01:54 Hospitalization Ordered by Audi Benitez MD for Observation. aj1 Preliminary diagnosis is Chest pain; Hyperglycemia. Bed requested for Telemetry/MedSurg (observation). Status is Observation. Condition is Stable. Problem is new. Symptoms have improved. UTI on Admission? No. bd
--- NOTE | 2018-06-08 01:54 | ER ---
Nurse's Notes [facility] Name: Karen Shah Age: 48 yrs Sex: Female : 1970 Arrival Date: 06/07/2018 Time: 23:28 Bed 7 Private MD: Diagnosis: Chest pain;Hyperglycemia Presentation: 06/07 23:29 Presenting complaint: EMS states: Called out for chest pain, during assessment pt would tl2 become altered and not answer questions but would become oriented after a few minutes. Pt is answering questions in triage and c/o headache. States she took all of her home meds tonight like normal. Transition of care: patient was not received from another setting of care. Onset of symptoms was June 07, 2018 at 23:00. Risk Assessment: Do you want to hurt yourself or someone else? Patient reports no desire to harm self or others. Initial Sepsis Screen: Does the patient meet any 2 criteria? No. Patient's initial sepsis screen is negative. Does the patient have a suspected source of infection? No. Patient's initial sepsis screen is negative. Care prior to arrival: None. 23:29 Method Of Arrival: EMS: [facility] tl2 23:29 Acuity: ARIEL 3 tl2 Triage Assessment: 23:35 General: Appears in no apparent distress. uncomfortable, Behavior is calm, cooperative, tl2 appropriate for age. Pain: Complains of pain in headache. Neuro: Level of Consciousness is awake, alert, obeys commands, Oriented to person, place, time, Social Service Assistant are equal bilaterally Speech is normal, Facial symmetry appears normal. Cardiovascular: Reports chest pain, Rhythm is sinus rhythm. Respiratory: Reports shortness of breath Airway is patent Respiratory effort is even, unlabored, Respiratory pattern is regular, symmetrical. GI: No signs and/or symptoms were reported involving the gastrointestinal system. : No signs and/or symptoms were reported regarding the genitourinary system. Derm: Skin is pink, warm \T\ dry. Historical: - Allergies: 23:35 Toradol; tl2 23:35 tramadol; tl2 - Home Meds: 23:35 gabapentin oral oral [Active]; atorvastatin oral oral [Active]; [place] Oral [Active]; tl2 Furosemide Oral [Active]; clopidogrel oral oral [Active]; Isosorbide Mononitrate Oral [Active]; duloxetine oral oral [Active]; Metformin Oral [Active]; escitalopram oxalate oral oral [Active]; Nitroglycerin TD [Active]; - PMHx: 23:35 CAD; CVA; Diabetes - IDDM; High Cholesterol; Hypertension; Myocardial infarction; tl2 - PSHx: 23:35 triple bypass; tl2 - Immunization history:: Adult Immunizations up to date. - Social history:: Smoking status: Patient/guardian denies using tobacco. - Ebola Screening: : No symptoms or risks identified at this time. Screenin:37 Abuse screen: Denies threats or abuse. Nutritional screening: No deficits noted. tl2 Tuberculosis screening: No symptoms or risk factors identified. Fall Risk Gait- Impaired (20 pts.). Assessment: 23:43 General: see triage assessment. tl2 06/08 00:17 Reassessment: Patient and/or family updated on plan of care and expected duration. Pain ea level reassessed. Patient is alert, oriented x 3, equal unlabored respirations, skin warm/dry/pink. 00:51 Reassessment: Patient and/or family updated on plan of care and expected duration. Pain ea level reassessed. Patient is alert, oriented x 3, equal unlabored respirations, skin warm/dry/pink. Pt complaining of nausea provider notified, medication order obtained, medication administered, pt tolerated well. 01:36 Reassessment: Patient and/or family updated on plan of care and expected duration. Pain ea level reassessed. Patient is alert, oriented x 3, equal unlabored respirations, skin warm/dry/pink. 02:30 Reassessment: Pt complaining of back pain, provider notified, medication order ea obtained, medication administered, pt tolerated well. 02:47 Reassessment: Patient and/or family updated on plan of care and expected duration. Pain ea level reassessed. Patient is alert, oriented x 3, equal unlabored respirations, skin warm/dry/pink. Pt reports pain has decreased. Vital Signs: 06/07 23:35 BP 147 / 77; Pulse 91; Resp 20; Temp 98.5(O); Pulse Ox 96% on R/A; Weight 77.11 kg; tl2 Height 5 ft. 4 in. (162.56 cm); Pain 10; 06/08 00:17 BP 128 / 80; Pulse 99; Resp 17; Pulse Ox 99% on R/A; ea 01:15 BP 114 / 73; Pulse 109; Resp 18; Pulse Ox 98% on R/A; ea 02:00 BP 102 / 67; Pulse 101; Resp 18; Pulse Ox 97% on R/A; ea 06:11 BP 90 / 62; Pulse 99; Resp 19; Pulse Ox 94% on R/A; tl2 06/07 23:35 Body Mass Index 29.18 (77.11 kg, 162.56 cm) tl2 ED Course: 06/07 23:28 Patient arrived in ED. tl2 23:31 Triage completed. tl2 23:35 Arm band placed on right wrist. tl2 23:37 Patient has correct armband on for positive identification. Placed in gown. Bed in low tl2 position. Call light in reach. Side rails up X2. 23:42 Inserted saline lock: 20 gauge in left antecubital area, using aseptic technique. Blood tl2 collected. placed by CHIDI Ortiz. 23:49 Trevor Salamanca MD is Attending Physician. 06/08 00:20 X-ray completed. Portable x-ray completed in exam room. Patient tolerated procedure kw well. 00:23 XRAY Chest (1 view) In Process Unspecified. EDMS 00:51 Diana Miranda RN is Primary Nurse. ea 01:53 Audi Benitez MD is Hospitalizing Provider. wa 01:58 No provider procedures requiring assistance completed. Patient admitted, IV remains in ea place. 07:00 Report given to Irineo MURILLO. ea 11:09 Echocardiogram with Doppler done. tc Administered Medications: 00:16 Drug: Aspirin Chewable Tablet 162 mg Route: PO; ea 00:44 Follow up: Response: No adverse reaction ea 00:44 Drug: Zofran 4 mg Route: IVP; Site: left antecubital; ea 01:15 Follow up: Response: No adverse reaction; Nausea is decreased ea 02:30 Drug: morphine 4 mg Route: IVP; Site: left antecubital; ea 03:00 Follow up: Response: No adverse reaction; Pain is decreased tl2 05:00 Drug: morphine 2 mg Route: IVP; Site: left antecubital; tl2 05:30 Follow up: Response: No adverse reaction; Pain is decreased tl2 Outcome: 01:54 Decision to Hospitalize by Provider. wa 06:12 Admitted to ER Hold. Please see [facility] for further documentation. tl2 06:12 Condition: stable 06:12 Instructed on the need for admit. 13:05 Patient left the ED. aj1 Signatures: Dispatcher [employer] EDAmanda Perez, RN RN aj1 Lesli Lopez Tiffany, meal cooker EKG Ttc Marlen Zamudio RN RN tl2 Diana Miranda RN RN Trevor Hauser MD MD wa
[2018-06-08] MEDS ORDERED: MORPHINE 4 MG/ML SYR ONE ×2 (02:35→05:06)
[2018-06-08] MEDS ORDERED: NITROGLYCERIN 0.4 MG/TAB SL PRN (03:27)
--- NOTE | 2018-06-08 03:36 | P.HP ---
Certification for Inpatient Patient admitted to: Observation With expected LOS: <2 Midnights Practitioner: I am a practitioner with admitting privileges, knowledge of patient current condition, hospital course, and medical plan of care. Services: Services provided to patient in accordance with Admission requirements found in Title 42 Section 412.3 of the Code of Federal Regulations Patient History Date of Service: 06/08/18 Reason for admission: chest pain History of Present Illness: Ms Shah is a 48 years old woman with history of IDDM, right BKA, peripheral neuropathy, HTN, CAD s/p CABG x 3, last left heart cath was done on 05/17/17 showing severe diffuse CAD, at this time she did not have any stent placement, it was decided to continue medical treatment. She has history of chronic pain syndrome, she goes to a pain management physician. The patient came to ED today complaining of chest pain. The pain is substernal, pressure like, radiated to the back, associated with nausea and SOB, similar to previous episode when she had a heart attack, lasting for 7 minutes, about 8/10 of intensity. At the moment she is chest pain free. Initial trop I is negative. EKG shows no acute ST -T changes. Allergies tramadol Allergy (Mild, Verified 05/16/17 02:57) Rash ketorolac Allergy (Verified 05/16/17 02:57) Unknown Home medications list reviewed: Yes Home Medications: Alprazolam [Xanax] 0.5 mg PO DAILY PRN 05/15/17 Insulin Glargine,Hum.rec.anlog [[place] Solostar] 120 units SQ BEDTIME 05/15/17 Ranolazine [Ranexa] 500 mg PO BID 05/15/17 Aspirin 81 mg PO DAILY #30 tab.chew 05/16/17 Atorvastatin Calcium [Lipitor] 40 mg PO BEDTIME #30 tab 05/16/17 Clopidogrel Bisulfate [Plavix] 75 mg PO DAILY #30 tablet 05/16/17 Duloxetine HCl 30 mg PO DAILY #30 capsule. 05/16/17 Escitalopram Oxalate [Lexapro] 20 mg PO DAILY #30 tablet 05/16/17 Furosemide 20 mg PO DAILY #30 tablet 05/16/17 Gabapentin 800 mg PO TID #120 tablet 05/16/17 Metformin HCl 500 mg PO BID #60 tablet 05/16/17 Metoprolol Tartrate [Lopressor*] 25 mg PO DAILY #30 tab 05/16/17 Pantoprazole [Protonix Tab*] 40 mg PO DAILY #30 tab 05/16/17 Potassium Chloride [Klor-Con 10] 10 meq PO DAILY #30 tablet.er 05/16/17 levETIRAcetam [Levetiracetam] 500 mg PO BID #60 tablet 05/16/17 Fluconazole [Diflucan] 100 mg PO DAILY #7 tablet 05/17/17 Nitrofuran Macro [Macrobid] 100 mg PO BID #14 cap 05/17/17 Pantoprazole [Protonix Tab*] 40 mg PO DAILY #30 tab 05/17/17 - Past Medical/Surgical History Diabetic: Yes -: Coronary artery disease -: Type 1 diabetes -: liver cyst -: neuropathy -: 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 -: Peripheral arterial disease -: Hypertension -: cva -: triple bypass (heart) 2012 -: 2 C-Sections -: double bypass 2015 -: 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 -: Below knee amputation 2014 -: Above knee amputation 2014 -: Eye surgery for detached retina 2015 - Family History Father -: Diabetes Notes: Pt's father of an AL at age 60. Mother Notes: Pt states her mother is in perfect health Brother -: Diabetes Notes: Brother recently diagnosed in 2015 Sister -: Hypertension - Social History Smoking Status: Current every day smoker Counseled patient to stop smoking for: less than 10 minutes Alcohol use: No CD- Drugs: No Caffeine use: Yes Place of Residence: Home Review of Systems 10-point ROS is otherwise unremarkable Physical Examination - Physical Exam General: Alert, In no apparent distress HEENT: Atraumatic, PERRLA, Mucous membr. moist/pink, EOMI, Sclerae nonicteric Neck: Supple, 2+ carotid pulse no bruit, No LAD, Without JVD or thyroid abnormality Respiratory: Clear to auscultation bilaterally, Normal air movement Cardiovascular: Regular rate/rhythm, Normal S1 S2 Gastrointestinal: Normal bowel sounds, No tenderness Musculoskeletal: No tenderness, Other (right BKA) Integumentary: No rashes Neurological: Normal speech, Normal strength at 5/5 x4 extr, Normal tone, Normal affect Lymphatics: No axilla or inguinal lymphadenopathy - Studies Laboratory Data (last 24 hrs) 06/08/18 00:01: WBC 10.6, Hgb 15.7 H, Hct 45.4 H, Plt Count 390 06/08/18 00:01: Sodium 136, Potassium 3.4 L, BUN 17, Creatinine 1.14, Glucose 273 H, Total Bilirubin 0.4, AST 12 L, ALT 23, Alkaline Phosphatase 97 Assessment and Plan - Problems (Diagnosis) (1) Chest pain, rule out acute myocardial infarction Onset Date: 05/16/17 Current Visit: No Status: Acute (2) Coronary artery disease Onset Date: 05/16/17 Current Visit: No Status: Acute Qualifiers: Coronary Disease-Associated Artery/Lesion type: bypass graft [place] vs. transplanted heart: [place] heart Associated angina: with unspecified angina Qualified Code(s): I25.709 - Atherosclerosis of coronary artery bypass graft(s) , unspecified, with unspecified angina pectoris (3) Diabetes type 1, uncontrolled Onset Date: 05/16/17 Current Visit: No Status: Acute (4) History of peripheral arterial disease Current Visit: No Status: Acute (5) Hx of CABG Current Visit: No Status: Acute - Plan The patient will be admitted to the hospital due to chest pain in order to rule out ACS. So far work up is negative. Will order serial cardiac enzymes and EKG. Consult Cardiology team for evaluation and recommendations. - Advance Directives Does patient have a Living Will: No Does patient have a Durable POA for Healthcare: No - Code Status/Comfort Care Code Status Assessed: Yes Code Status: Full Code
[2018-06-08 06:01] VITALS: BMI 29.1
[2018-06-08] MEDS: INSULIN -REGULAR HUMAN 50 UNIT/0.5 ML ML SQ SCH ×4 (06:07→21:14)
[2018-06-08] MEDS ORDERED: ACETAMINOPHEN 500 MG TAB PO PRN (06:07)
--- NOTE | 2018-06-08 07:49 | RAD REPORT ---
EXAM DESCRIPTION: Erika Single View06/08/2018 12:23 am CLINICAL HISTORY: Chest pain COMPARISON: 2017 FINDINGS: The lungs appear clear of acute infiltrate. The heart is borderline enlarged Postsurgical changes involve the chest. IMPRESSION: No acute abnormalities displayed
[2018-06-08] MEDS ORDERED: INFLUENZA VACCINE (for 3y+) 0.5 ML DOSE IMVAC ONE (08:00)
[2018-06-08 08:21] LABS: HDL Cholesterol 38 mg/dL (40-60); LDL Cholesterol, Calculated 102 (<130); Troponin I < 0.02 ng/mL (0.0-0.045)
[2018-06-08] MEDS ORDERED: ACETAMINOPHEN 500 MG TAB ONE (08:26)
[2018-06-08] MEDS ORDERED: REGADENOSON 0.4 MG/5 ML SYR IV ONE (08:56)
[2018-06-08] MEDS: levETIRAcetam 500 MG TAB PO SCH ×2 (09:00→21:15)
[2018-06-08] MEDS: ENOXAPARIN 40 MG/0.4 ML SQ SCH (09:00)
[2018-06-08] MEDS: CLOPIDOGREL 75 MG TABLET PO SCH (09:00)
[2018-06-08] MEDS: GABAPENTIN 400 MG CAP PO SCH ×3 (09:00→21:15)
[2018-06-08] MEDS: ASPIRIN 81 MG CHEWABLE TABLET PO SCH (09:00)
[2018-06-08] MEDS ORDERED: CLOPIDOGREL 75 MG TABLET ONE (09:07)
[2018-06-08] MEDS ORDERED: levETIRAcetam 500 MG TAB ONE (09:08)
[2018-06-08] MEDS ORDERED: ASPIRIN EC 81 MG TAB PO ONE (09:08)
[2018-06-08] MEDS ORDERED: ENOXAPARIN 40 MG/0.4 ML SQ ONE (09:08)
[2018-06-08 09:16] LABS: Urine Blood TRACE (NEG); Urine Glucose 3+ (NEG); Urine Protein TRACE (NEG)
[2018-06-08] MEDS: ONDANSETRON 4 MG/2 ML VIAL IV PRN ×2 (09:21→23:46)
--- NOTE | 2018-06-08 09:39 | EKG ---
Test Date: 2018-06-08 Test Time: 00:07:15 Fundraising Manager: TAYLA MEASUREMENT RESULTS: Intervals: Rate: 99 VA: 140 QRSD: 78 QT: 378 QTc: 485 [place]: P: 48 VA: 140 QRS: -5 T: 39 INTERPRETIVE STATEMENTS: Normal sinus rhythm Possible Left atrial enlargement Left ventricular hypertrophy Possible Inferior infarct, age undetermined Anterior infarct, age undetermined Abnormal ECG Compared to ECG 05/15/2017 11:10:39 Myocardial infarct finding now present Prolonged QT interval no longer present Electronically Signed On 06-08-18 09:38:10 INVERFORM MACHINE OPERATOR by Julio Montemayor
[2018-06-08] MEDS ORDERED: ALPRAZOLAM 0.5 MG TABLET PO PRN (11:02)
[2018-06-08 13:24] VITALS: O2SAT 94
[2018-06-08 14:19] LABS: Protime INR 0.99
--- NOTE | 2018-06-08 14:37 | CON ---
CARDIOLOGY CONSULT Chief Complaint: Chest pain. History Of Present Illness: Ms. Shah has a history of heart disease. She has had at least 1 stro ke. She has never had vascular surgery or stents on cerebral arteries. She has had 2 separate bypas s surgeries, about 3 years between the first and the second one. In the second one, all of her graft s had occluded. The last bypass surgery was in about 2013. Past Medical History: She has underlying diabetes, obesity, and hypertension. Social History: She is a cigarette smoker. She smoked from teenage years until her mid 30s, then sh e quit for 9 years and started again about a year ago. Medications: Outpatient medications are Xanax, Ranexa, insulin, metoprolol, aspirin, atorvastatin, P lavix, duloxetine, Lexapro, furosemide, gabapentin, levetiracetam, metformin, Protonix, and potassium chloride. Allergies: SHE IS ALLERGIC TO TRAMADOL AND KETORALAC. Physical Examination: Vital Signs: 5 feet 4 inches, 169 pounds. HEENT: Unremarkable. General: No acute distress. Lungs: Clear. Cardiac: Within normal limits. No friction rub. No significant murmur. Her EKG is unremarkable. Extremities: She has had a right rmlwk-bos-yqey amputation. Her left leg shows normal distal pulses . Impression: The patient may have unstable angina, may be something unrelated. I will recommend echo cardiogram and nuclear stress test. We will try and sort out whether she is a candidate for a cardia c cath or not. She is normally under the care of Dr. Jenkins in [place]. She thinks she may have had a stress test, but she is not sure whether it was 3 months ago or more. Thank you very much for your kind referral of Ms. Shah. I will follow her with you. BAILEE/KANDIS Voice ID: [id number] Report ID: [id number]
--- NOTE | 2018-06-08 14:39 | ECHO ---
HEIGHT: 5 ft 4 in WEIGHT: 169 lb 15.622 oz DATE OF STUDY: 06/08/[address]: Julio Montemayor MD 2-DIMENSIONAL: YES M.MODE: YES DOPPLER: YES COLOR FLOW: YES TDS: YES PORTABLE: YES DEFINITY: BUBBLE STUDY: DIAGNOSIS: CORNARY ARTERY DISEASE, CHEST PAIN CARDIAC HISTORY: CATHERIZATION: YES SURGERY: YES PROSTHETIC VALVE: NO PACEMAKER: NO MEASUREMENTS (cm) DIASTOLIC (NORMALS) SYSTOLIC (NORMALS) IVSd 1.0 (0.6-1.2) LA Diam 2.6 (1.9-4.0) LVEF 63% LVIDd 4.1 (3.5-5.7) LVIDs 2.7 (2.0-3.5) %FS 34% LVPWd 1.1 (0.6-1.2) Ao Diam 2.6 (2.0-3.7) 2 DIMENSIONAL ASSESSMENT: RIGHT ATRIUM: NORMAL LEFT ATRIUM: NORMAL RIGHT VENTRICLE: NORMAL LEFT VENTRICLE: NORMAL TRICUSPID VALVE: NORMAL MITRAL VALVE: NORMAL PULMONIC VALVE: NORMAL AORTIC VALVE: NORMAL PERICARDIAL EFFUSION: NONE AORTIC ROOT: NORMAL LEFT VENTRICULAR WALL MOTION: POSTERIOR WALL AKINESIS DOPPLER/COLOR FLOW: NORMAL COMMENTS: NORMAL LEFT VENTRICULAR EJECTION FRACTION WITH POSTERIOR WALL AKINESIS. OTHERWISE NORMAL 2-DIMENSIONAL ECHOCARDIOGRAM WITH DOPPLER. TECHNOLOGIST: VIC MALIK
--- NOTE | 2018-06-08 15:26 | TREADPHA ---
DX: CHEST PAIN Date of Study: 06/08/2018 Ht: 5 4 Wt: 169 lb 15.622 oz Consulting Physician: BABITA MEDICATIONS: TYLENOL, ASPIRIN, LIPITOR, PLAVIX, LOVENOX, NOVOLIN-R, LOPRESSOR, RANEXA HISTORY: 48 YEAR OLD FEMALE COMPLAINTS OF CHEST PAIN, HYPERGLYCEMIA. HISTOYR OF CORNARY ARTERY DISEASE, CEREBRAL VASCULAR ACCIDENT. INSULIN DEPENENT DIABETES MELLITUS, HIGH CHOLESTEROL, HYPERTENSION, MYOCARDIAL INFARCTION, CHRONIC PAIN, TRIPLE BYPASS, SMOKES QUARTER PACK DAILY. PHYSICIAL EXAMINATION: RESTING B.P.: 96/71 RESTING H.R.: 85 RESTING EKG: ANTERIOR INFARCT PROTOCOL: LEXISCAN EXERCISE TIME: 3:30 B.P. AT PEAK STRESS: 96/58 IMPRESSION: LEXISCAN INJECTED, FOLLOWED BY CARDIOLITE PER PROTOCOL. SEE NUCLEAR MEDICINE REPORT. NO SUPRAVENTRICULAR TACHYCARDIA. NO VENTRICULAR TACHYCARDIA. NO PREMATURE ATRIAL COMPLEXES. NO PREMATURE VENTRICULAR COMPLEXES. PATIENT REPORTED SEVEN OUT OF TEN ON PAIN SCALE, CHEST PAIN. PRIOR TO PROCEDURE PATIENT REPORTED LESS CHEST PAIN, TIGHTNESS THROUGHOUT PROCEDURE AND IN RECOVERY. NON-DIAGNOSTIC ELECTROCARDIOGRAM WITH LEXISCAN STRESS.
--- NOTE | 2018-06-08 15:56 | RAD REPORT ---
EXAM DESCRIPTION: NM - Rest Stress Cardiac Imaging - 06/08/2018 3:43 pm CLINICAL HISTORY: CP Chest pain. COMPARISON: Rest Stress Cardiac Imaging dated 05/16/2017 TECHNIQUE: The patient was administered approximately 10mCi of Tc 99m Sestamibi prior to resting SPE CT imaging of the heart. The patient was then administered approximately 30 mCi of Tc 99m Sestamibi f ollowing exercise or pharmacologic stress. Multiplanar SPECT images were reviewed. FINDINGS: No stress induced ischemic defect is seen to suggest stress induced ischemia. Mild diminis hed radiopharmaceutical accumulation in the anterior wall likely represents breast attenuation artifa ct. The end diastolic volume is 76 ml, the end systolic volume is 41 ml, and the ejection fraction is 46 %. IMPRESSION: No stress induced ischemia.
[2018-06-08] MEDS ORDERED: GLUCAGON 1 MG/VIAL IM PRN (16:07)
[2018-06-08] MEDS ORDERED: D50W 25 GM/50 ML SYRINGE IV PRN (16:07)
[2018-06-08] MEDS: MORPHINE 4 MG/ML SYR IV PRN ×2 (16:30→21:16)
[2018-06-08] MEDS ORDERED: ATORVASTATIN 40 MG TAB PO SCH (21:00)
[2018-06-08] MEDS ORDERED: INSULIN GLARGINE HUM REC ANLOG 120 UNIT SQ SCH (21:00)
[2018-06-08] MEDS ORDERED: INSULIN GLARGINE 100 UNITS/ML SQ SCH (21:00)
--- NOTE | 2018-06-08 23:10 | PN ---
Date of Progress Note: 06/08/2018 Subjective: The patient is seen and examined. Chart reviewed and case discussed with RN and Dr. Ethan hoffman. The patient is complaining of some chest pain. Does have a history of CABG, going for stress t est. Medications: List reviewed. Physical Examination: Vital Signs: Temperature 96.8, heart rate 91, blood pressure 95/58, respirations 16, and O2 91% on r oom air. General: Awake, alert, oriented x3, in moderate distress due to pain. Obese female. CV: S1, S2. Regular rate and rhythm. Peripheral pulses present. Respiratory: Moving air well bilaterally. No wheezing or stridor. No use of accessory muscles. Gastrointestinal: Abdomen is soft, nontender, and nondistended. Positive bowel sounds. Extremities: No clubbing, cyanosis, or edema. Musculoskeletal: The patient has right AKA. Neuro: Cranial nerves 2 through 12 intact grossly. No focal neurological deficit. Laboratory Data: Sodium 136, potassium 3.4, chloride 100, CO2 26, BUN 17, creatinine 1.14, and gluco se 273. Hemoglobin A1c 11%. Calcium 8.1. Troponin less than 0.02 x2. Triglycerides 171, cholester ol 178, LDL 102, and HDL 38. WBC 10.6, H and H 15.7 and 45.4, and platelets 390. Echocardiogram jeannette ws EF of 63%. Posterior wall akinesis. Cardiac stress test shows no stress-induced ischemia. Assessment And Plan: A 48-year-old female with: 1.Unstable angina. Rule out acute coronary syndrome. Troponins are negative x2. Stress test was n egative, not showing any acute stress-induced ischemia. Echocardiogram does show posterior wall loreta esis. Cardiology recommends cardiac catheterization. 2.Coronary artery disease, [place] artery and [place] heart, status post coronary artery bypass graft with angina. 3.Diabetes type 1, uncontrolled with hyperglycemia. 4.Status post right above-knee amputation. 5.Peripheral arterial disease. 6.Hypotension. 7.History of cerebrovascular accident. 8.Diabetic neuropathy. Plan: Cardiac catheterization planned by Cardiology. We will resume home medications as appropriate . SA/MODL Voice ID: [id number] Report ID: [id number]
[2018-06-09] MEDS: MORPHINE 4 MG/ML SYR IV PRN ×3 (01:07→09:53)
[2018-06-09] MEDS ORDERED: METOPROLOL TAR 25 MG TAB PO SCH (06:00)
[2018-06-09] MEDS: INSULIN -REGULAR HUMAN 50 UNIT/0.5 ML ML SQ SCH ×2 (08:48→11:36)
[2018-06-09] MEDS: ENOXAPARIN 40 MG/0.4 ML SQ SCH (08:50)
[2018-06-09] MEDS: GABAPENTIN 400 MG CAP PO SCH (08:52)
[2018-06-09] MEDS: CLOPIDOGREL 75 MG TABLET PO SCH (08:52)
[2018-06-09] MEDS: levETIRAcetam 500 MG TAB PO SCH (08:53)
[2018-06-09] MEDS: ASPIRIN 81 MG CHEWABLE TABLET PO SCH (08:53)
[2018-06-09] MEDS ORDERED: ESCITALOPRAM 20 MG TAB PO SCH (09:00)
[2018-06-09] MEDS ORDERED: DULOXETINE 30 MG CAP PO SCH (09:00)
[2018-06-09] MEDS ORDERED: FUROSEMIDE 20 MG TABLET PO SCH (09:00)
[2018-06-09] MEDS ORDERED: PANTOPRAZOLE 40MG TABLET PO SCH (09:00)
--- NOTE | 2018-06-09 10:11 | PN ---
Ms. Shah does not have any evidence of ischemia. She feels well. Her vital signs are pretty good , although this morning's systolic blood pressure is a little low. I think the patient has reached t he point where she could be discharged home. TRACY Voice ID: [id number] Report ID: [id number]
[2018-06-09] MEDS ORDERED: NA CHLORIDE 0.9% 500 ML IV ONE (10:46)
[2018-06-09 12:36] VITALS: TEMP 97.9
[2018-06-09 12:40] VITALS: BP 98/52
--- NOTE | 2018-06-09 14:14 | EKG ---
Test Date: 2018-06-09 Test Time: 00:11:19 Power And Recovery Shift Engineer: ROSSI MEASUREMENT RESULTS: Intervals: Rate: 107 VT: 160 QRSD: 80 QT: 372 QTc: 496 [place]: P: 56 VT: 160 QRS: -1 T: 51 INTERPRETIVE STATEMENTS: Sinus tachycardia Anterior infarct, age undetermined Abnormal ECG Compared to ECG 06/08/2018 00:07:15 Sinus rhythm no longer present Left ventricular hypertrophy no longer present Myocardial infarct finding still present Electronically Signed On 06-09-18 14:13:21 RESIDENTIAL INSTALLER by Julio Montemayor
--- NOTE | 2018-06-10 09:38 | DS ---
Date of Discharge: 06/09/2018 Consultants: Dr. Montemayor with Cardiology. Procedures: On 06/08/2018, cardiac stress test showed no stress-induced ischemia. Discharge Diagnoses: 1.Unstable angina, acute coronary syndrome ruled out. 2.Coronary artery disease, [place] artery and [place] heart, status post coronary artery bypass grafti ng, with angina. 3.Diabetes mellitus type 1, uncontrolled. Hemoglobin A1c 11% with hyperglycemia. 4.Status post right above-knee amputation. 5.Peripheral arterial disease. 6.Hypertension. 7.History of cerebrovascular accident. 8.Diabetic neuropathy. 9.Obesity, BMI 30. Hospital Course: The patient is a 48-year-old female who was admitted to the hospital for chest pain . She has a history of insulin-dependent diabetes, peripheral neuropathy, hypertension, coronary art amy disease status post CABG 3-vessel disease, history of stroke. The patient does have some severe anxiety and chronic pain and has just recently taken off narcotics and benzodiazepines as her PCP no longer fills control substances. The patient has been seeing a industrial spraypainter, Dr. Sal carroll. The patient comes in with chest tightness due to her risk factors. The patient was admitted to the hospital and evaluated further. Her cardiac enzymes were negative. EKG did not show any acute changes. She underwent cardiac stress test and was seen by Cardiology. Her workup came back negativ e. Stress test was negative. Echocardiogram showed EF of 63%. She had posterior wall akinesis. e patient was then cleared for discharge from Dr. Montemayor' standpoint. 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 Clearly, the patient does have some level of narcotic dependence and needs to be managed very carefully to avoid overdose. The patient was counseled exten sively. She reports that she has significant amount of pain. She is depressed and anxious due to r medical conditions as she is only 48 with multiple comorbidities. The patient to follow up with r industrial spraypainter, encouraged to get off chronic narcotics and to pursue alternatives. [facility] is not interested in at this time. The patient was then cleared for discharge from Cardiology [facility], sent home in a stable condition. Activity: Fall precautions. The patient normally uses a wheelchair, does have prosthesis, however, does not use it. Diet: Diabetic diet. Followup: Follow up with primary care physician in 2 to 3 days. Follow up with primary foreign trade teacher , Dr. Talley, in 2 weeks. Return to ER for worsening condition. Follow up with pain management spec ialist, Dr. Mueller, in 1 to 2 weeks. Physical Examination: General: Awake, alert, and oriented, no acute distress. Obese female. CV: S1, S2. Peripheral pulses on the left present, but weak. Gastrointestinal: Abdomen is soft, nontender, nondistended. Positive bowel sounds. Left Lower Extremity: No clubbing, cyanosis, or edema. Musculoskeletal: Right AKA. Neurologic: Nonfocal. SA/MODL Voice ID: [id number] Report ID: [id number]
== END 2018-06-09 14:17 | disposition home or self-care (01) ==
LOC: ER 23:24 → ERHOLD 06-08 03:38 → 4TH 06-08 12:42
PROVIDERS: ADMIT Internal Medicine; ATTEND Internal Medicine
DX: I25.110 Atherosclerotic heart disease of native coronary artery with unstable angina pectoris (principal); E10.65 Type 1 diabetes mellitus with hyperglycemia; E10.40 Type 1 diabetes mellitus with diabetic neuropathy, unspecified; E10.51 Type 1 diabetes mellitus with diabetic peripheral angiopathy without gangrene; Z95.1 Presence of aortocoronary bypass graft; Z89.611 Acquired absence of right leg above knee; Z86.73 Personal history of transient ischemic attack (TIA), and cerebral infarction without residual deficits; I10 Essential (primary) hypertension; E66.9 Obesity, unspecified; Z68.29 Body mass index [BMI] 29.0-29.9, adult; F41.9 Anxiety disorder, unspecified; G89.29 Other chronic pain; F17.210 Nicotine dependence, cigarettes, uncomplicated
CPT/HCPCS: 36415 ×2; 71045; 78452; 80048; 80061 ×2; 80076; 81003; 81025; 82962 ×6; 83036 ×2; 83880; 84484 ×4; 85025; 85610; 93005 ×2; 93017; 93306; 96374; 96375; 99285; A9500; G0378 ×2; J1650 ×2; J2405 ×3; J2785

== ENCOUNTER 2018-08-18 15:10 | Emergency (ER) | payer OTHER ==
--- OUTSIDE RECORDS SUMMARY | 2018-08-18 15:12 | XMS REPORT ---
[...] of CVA (cerebrovascular Z86.73 Active accident) Assessment long term current use of 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 Assessment Migraine without aura and without G43.009 Active status migrainosus, not intractable Problem Neuropathy G62.9 Active Assessment Hx of CABG Z95.1 Active Problem Depression with anxiety F41.8 Active Problem long term current use of 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 Problem HTN (hypertension), benign I10 Active Problem Seizures R56.9 Active Assessment HTN (hypertension), benign I10 Active Assessment Chronic pain disorder G89.4 Active Assessment Neuropathy G62.9 Active Assessment Seizures R56.9 Active Assessment Type 2 diabetes mellitus with other E11.69 Active specified complication Problem Coronary artery disease involving I25.709 Active coronary bypass graft of [place] heart with angina pectoris Assessment Depression with anxiety F41.8 Active Assessment Coronary artery disease involving I25.709 Active coronary bypass graft of [place] heart with angina pectoris Medications Medication Code Code Instructions Start End Status Dosage System Date Date Atorvastatin [facility][NOTE 3] 05864848440 40 MG Orally Active 1 tablet Calcium Once a day Lexapro [facility][NOTE 3] 76830813432 20 MG Orally Active 1 tablet Once a day Levetiracetam [facility][NOTE 3] 12805047817 500 MG Orally Active 1 tablet Twice a day Metoprolol [facility][NOTE 3] 07463004171 25 MG Orally Active 1 tablet Tartrate Twice a day with food Ranexa [facility][NOTE 3] 35310497882 500 MG Orally Active 1 tablet Twice a day Klor-Con M10 [facility][NOTE 3] 27710837611 10 MEQ Orally Active 1 tablet Twice a day with food Insulin Aspart [facility][NOTE 3] [address]-83 (70-30) 100 Active 60 units Prot & Aspart UNIT/ML BID Subcutaneous Metformin HCl [facility][NOTE 3] 25816647411 500 MG Orally Active 1 tablet Twice a day with meals Aspirin [facility][NOTE 3] 05892920567 81 MG Orally Active 1 tablet Once a day Gabapentin [facility][NOTE 3] 29697793798 800 MG Orally Active 1 tablet Three times a day Furosemide [facility][NOTE 3] 55841449377 20 MG Orally Active 1 tablet Once a day Pantoprazole [facility][NOTE 3] 65772361397 40 MG Orally Active 1 tablet Sodium Once a day Duloxetine HCl [facility][NOTE 3] 49898952346 30 MG Orally Active 1 capsule Twice a day Xanax [facility][NOTE 3] 29108150262 0.5 MG Orally Active 1 tablet Twice a day Clopidogrel [facility][NOTE 3] 91559597807 75 MG Orally Active 1 tablet Bisulfate Once a day Results No Known Results Summary Purpose eClinicalWorks Submission
--- OUTSIDE RECORDS SUMMARY | 2018-08-18 15:12 | XMS REPORT ---
:1970 [facility] Address [address] [place] [address] Care Team Providers Name Role Phone Unavailable Unavailable Unavailable Problems This patient has no known problems. Allergies, Adverse Reactions, Alerts This patient has no known allergies or adverse reactions. Medications This patient has no known medications.
--- OUTSIDE RECORDS SUMMARY | 2018-08-18 15:12 | XMS REPORT ---
[...] involving I25.709 Active coronary bypass graft of [place] heart with angina pectoris Problem History of [...] End Status Dosage System Date Date Metoprolol [facility] 76765281187 25 MG Orally Active 1 tablet Tartrate Twice a day with food Pantoprazole [facility] 32537088952 40 MG Orally Active 1 tablet Sodium Once a day Gabapentin [facility] 79645056020 800 MG Orally Active 1 tablet Three times a day Duloxetine HCl [facility] 89248237308 30 MG Orally Active 1 capsule Twice a day Aspirin [facility] 60857534219 81 MG Orally Active 1 tablet Once a day Insulin Aspart [facility] [address]-85 (70-30) 100 Active 60 units Prot & Aspart UNIT/ML BID Subcutaneous Ranexa [facility] 36536141393 500 MG Orally Active 1 tablet Twice a day Levetiracetam [facility] 45249833193 500 MG Orally Active 1 tablet Twice a day Lexapro [facility] 19237825067 20 MG Orally Active 1 tablet Once a day Xanax [facility] 10701828105 0.5 MG Orally Active 1 tablet Twice a day Clopidogrel [facility] 89206051277 75 MG Orally Active 1 tablet Bisulfate Once a day Klor-Con M10 [facility] 32269692113 10 MEQ Orally Active 1 tablet Twice a day with food Furosemide [facility] 12530482635 20 MG Orally Active 1 tablet Once a day Metformin HCl [facility] 34557791951 500 MG Orally Active 1 tablet Twice a day with meals Atorvastatin [facility] 38430769759 40 MG Orally Active 1 tablet Calcium Once a day Results No Known Results Summary Purpose eClinicalWorks Submission
--- OUTSIDE RECORDS SUMMARY | 2018-08-18 15:12 | XMS REPORT ---
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
--- OUTSIDE RECORDS SUMMARY | 2018-08-18 15:13 | XMS REPORT ---
:1970 Author Organization e[employer] Care Team Providers Name Role Phone Aung Dada Provider Role Unavailable Allergies No Known Allergies Problems Problem Type Condition Code Onset Dates Condition Status Problem Depression with anxiety F41.8 Active Problem HTN (hypertension), benign I10 Active Problem Seizures R56.9 Active Problem Type 2 diabetes mellitus with other E11.69 Active specified complication Problem Type 2 diabetes mellitus with E11.65 Active hyperglycemia Problem Hx of CABG Z95.1 Active Problem USP current use of 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 Problem Dependent on wheelchair Z99.3 Active Problem Coronary artery disease involving I25.709 Active coronary bypass graft of [place] heart with angina pectoris Problem History of right above knee Z89.611 Active amputation Problem Chronic pain disorder G89.4 Active Problem History of CVA (cerebrovascular Z86.73 Active accident) Problem Migraine without aura and without G43.009 Active status migrainosus, not intractable Problem Neuropathy G62.9 Active Medications No Known Medications Results No Known Results Summary Purpose Woven SystemsinicalBirdback Submission
--- OUTSIDE RECORDS SUMMARY | 2018-08-18 15:13 | XMS REPORT ---
[...] Problem Hx of CABG Z95.1 Active Problem FDC current use of 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 Problem Dependent on wheelchair Z99.3 Active Problem Coronary artery disease involving I25.709 Active coronary bypass graft of [place] heart with angina pectoris Problem History of right above knee Z89.611 Active amputation Problem Chronic pain disorder G89.4 Active Problem History of CVA (cerebrovascular Z86.73 Active accident) Problem Migraine without aura and without G43.009 Active status migrainosus, not intractable Problem Neuropathy G62.9 Active Medications No Known Medications Results No Known Results Summary Purpose ididworkinicalMovaya Submission
--- OUTSIDE RECORDS SUMMARY | 2018-08-18 15:13 | XMS REPORT ---
:1970 Author Organization [employer]Works Care Team Providers Name Role Phone Aung Dada Provider Role Unavailable Allergies, Adverse Reactions, Alerts Substance Reaction Event Type tramadol Info Not Available Drug Allergy Toradol Info Not Available Drug Allergy Problems Problem Type Condition Code Onset Dates Condition Status Assessment Non compliance with medical Z91.19 Active treatment Assessment Above knee amputation of left lower Z89.612 Active extremity Assessment History of CVA (cerebrovascular Z86.73 Active accident) Assessment Type 2 diabetes mellitus with E11.65 Active hyperglycemia Problem Hx of CABG Z95.1 Active Assessment Hx of CABG Z95.1 Active Problem correction current use of 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 Assessment Migraine without aura and without G43.009 Active status migrainosus, not intractable Problem Depression with anxiety F41.8 Active Problem HTN (hypertension), benign I10 Active Problem Seizures R56.9 Active Problem Dependent on wheelchair Z99.3 Active Problem Coronary artery disease involving I25.709 Active coronary bypass graft of [place] heart with angina pectoris Assessment Seizures R56.9 Active Assessment Neuropathy G62.9 Active Problem History of right above knee Z89.611 Active amputation Assessment 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 Problem Chronic pain disorder G89.4 Active Problem History of CVA (cerebrovascular Z86.73 Active accident) Problem Migraine without aura and without G43.009 Active status migrainosus, not intractable Problem Neuropathy G62.9 Active Assessment Depression with anxiety F41.8 Active Assessment Coronary artery disease involving I25.709 Active coronary bypass graft of [place] heart with angina pectoris Assessment HTN (hypertension), benign I10 Active Assessment Chronic pain disorder G89.4 Active Problem Type 2 diabetes mellitus with other E11.69 Active specified complication Problem Type 2 diabetes mellitus with E11.65 Active hyperglycemia Assessment Type 2 diabetes mellitus with other E11.69 Active specified complication Medications Medication Code Code Instructions Start End Status Dosage System Date Date Metformin HCl [facility] 38730441854 500 MG Orally Active 1 tablet Twice a day with meals Pantoprazole [facility] 54990589096 40 MG Orally Active 1 tablet Sodium Once a day Klor-Con M10 [facility] 70910186914 10 MEQ Orally Active 1 tablet Twice a day with food Xanax [facility] 24428189576 0.5 MG Orally Inactive 1 tablet Twice a day Ranexa [facility] 78752763982 500 MG Orally Active 1 tablet Twice a day Duloxetine HCl [facility] 60164366624 30 MG Orally Active 1 capsule Twice a day Levetiracetam [facility] 71203733612 500 MG Orally Active 1 tablet Twice a day Clopidogrel [facility] 87386916304 75 MG Orally Active 1 tablet Bisulfate Once a day [place] [facility] 87533796143 7.5-325 MG Active 1 tablet Orally every 12 as needed hrs Aspirin [facility] 02166173705 81 MG Orally Active 1 tablet Once a day Lexapro [facility] 25890749877 20MG Orally Active 1 tablet Once a day Gabapentin [facility] 61650993924 800 MG Orally Active 1 tablet Three times a day Atorvastatin [facility] 78948659517 40 MG Orally Active 1 tablet Calcium Once a day Metoprolol [facility] 32654380635 25 MG Orally Active 1 tablet Tartrate Twice a day with food Insulin Aspart [facility] [address]-92 (70-30) 100 Active 60 units Prot & Aspart UNIT/ML BID Subcutaneous Atorvastatin [facility] 67260210615 40 MG Orally Active 1 tablet Calcium Once a day Clopidogrel [facility] 72439602205 75MG Orally Active 1 tablet Bisulfate Once a day Furosemide [facility] 56369967089 20 MG Orally Active 1 tablet Once a day Lexapro [facility] 26271534199 20 MG Orally Active 1 tablet Once a day Duloxetine HCl [facility] 82422844533 30 MG Orally Active 1 capsule Twice a day Furosemide [facility] 95320298832 20 MG Orally Active 1 tablet Once a day Results No Known Results Summary Purpose eClinicalWorks Submission
--- NOTE | 2018-08-18 16:44 | RAD REPORT ---
EXAM DESCRIPTION: RAD - Lumbar Spine 3 Views - 08/18/2018 4:33 pm CLINICAL HISTORY: Back pain FINDINGS: The alignment of the lumbar spine is satisfactory. No fracture or dislocation is seen. Mild spondylosis involves the lumbar spine
--- NOTE | 2018-08-18 16:46 | RAD REPORT ---
EXAM DESCRIPTION: RAD - C Spine Ap/Lat - 08/18/2018 4:28 pm CLINICAL HISTORY: Neck pain status post injury FINDINGS: The alignment of the cervical spine is satisfactory. No fracture or dislocation is seen.
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
[2018-08-18 17:11] VITALS: BP 135/92; TEMP 97.5; O2SAT 99
== END 2018-08-18 17:07 | disposition home or self-care (01) ==
LOC: ER 15:10
DX: G89.11 Acute pain due to trauma (principal); S13.4XXA Sprain of ligaments of cervical spine, initial encounter; V59.50XA Passenger in pick-up truck or van injured in collision with unspecified motor vehicles in traffic accident, initial encounter; Z88.5 Allergy status to narcotic agent; I10 Essential (primary) hypertension; I25.2 Old myocardial infarction
CPT/HCPCS: 72040; 72100; 99283

== ENCOUNTER 2018-08-22 18:32 | Emergency (ER) | payer OTHER ==
--- OUTSIDE RECORDS SUMMARY | 2018-08-22 18:34 | XMS REPORT ---
:1970 [facility] Address [address] [place] [address] [address] [place] [address] Care Team Providers Name Role Phone Unavailable Unavailable Unavailable Problems This patient has no known problems. Allergies, Adverse Reactions, Alerts This patient has no known allergies or adverse reactions. Medications This patient has no known medications.
--- OUTSIDE RECORDS SUMMARY | 2018-08-22 18:35 | XMS REPORT ---
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
--- OUTSIDE RECORDS SUMMARY | 2018-08-22 18:35 | XMS REPORT ---
[...] Problem Hx of CABG Z95.1 Active Problem halfway current use of 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 Problem Dependent on wheelchair Z99.3 Active Problem Coronary artery disease involving I25.709 Active coronary bypass graft of [place] heart with angina pectoris Problem History of right above knee Z89.611 Active amputation Problem Chronic pain disorder G89.4 Active Problem History of CVA (cerebrovascular Z86.73 Active accident) Problem Migraine without aura and without G43.009 Active status migrainosus, not intractable Problem Neuropathy G62.9 Active Medications No Known Medications Results No Known Results Summary Purpose AquaBlokinicalAries [place] Submission
--- OUTSIDE RECORDS SUMMARY | 2018-08-22 18:35 | XMS REPORT ---
[...] Assessment Hx of CABG Z95.1 Active Problem shelter current use of 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 Assessment Migraine without aura and without G43.009 Active status migrainosus, not intractable Problem Depression with anxiety F41.8 Active Problem HTN (hypertension), benign I10 Active Problem Seizures R56.9 Active Problem Dependent on wheelchair Z99.3 Active Problem Coronary artery disease involving I25.709 Active coronary bypass graft of [place] heart with angina pectoris Assessment Seizures R56.9 Active Assessment Neuropathy G62.9 Active Problem History of right above knee Z89.611 Active amputation Assessment 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 Problem Chronic pain disorder G89.4 Active Problem History of CVA (cerebrovascular Z86.73 Active accident) Problem Migraine without aura and without G43.009 Active status migrainosus, not intractable Problem Neuropathy G62.9 Active Assessment Depression with anxiety F41.8 Active Assessment Coronary artery disease involving I25.709 Active coronary bypass graft of [place] heart with angina pectoris Assessment HTN (hypertension), benign I10 Active Assessment Chronic pain disorder G89.4 Active Problem Type 2 diabetes mellitus with other E11.69 Active specified complication Problem Type 2 diabetes mellitus with E11.65 Active hyperglycemia Assessment Type 2 diabetes mellitus with other E11.69 Active specified complication Medications Medication Code Code Instructions Start End Status Dosage System Date Date Metformin HCl [facility] 10541379519 500 MG Orally Active 1 tablet Twice a day with meals Pantoprazole [facility] 80853720356 40 MG Orally Active 1 tablet Sodium Once a day Klor-Con M10 [facility] 63633407175 10 MEQ Orally Active 1 tablet Twice a day with food Xanax [facility] 66980176020 0.5 MG Orally Inactive 1 tablet Twice a day Ranexa [facility] 01460709783 500 MG Orally Active 1 tablet Twice a day Duloxetine HCl [facility] 79699525334 30 MG Orally Active 1 capsule Twice a day Levetiracetam [facility] 79758339313 500 MG Orally Active 1 tablet Twice a day Clopidogrel [facility] 63586230777 75 MG Orally Active 1 tablet Bisulfate Once a day [place] [facility] 64807634805 7.5-325 MG Active 1 tablet Orally every 12 as needed hrs Aspirin [facility] 02255393732 81 MG Orally Active 1 tablet Once a day Lexapro [facility] 56521589153 20MG Orally Active 1 tablet Once a day Gabapentin [facility] 54493875944 800 MG Orally Active 1 tablet Three times a day Atorvastatin [facility] 89777445563 40 MG Orally Active 1 tablet Calcium Once a day Metoprolol [facility] 34428531192 25 MG Orally Active 1 tablet Tartrate Twice a day with food Insulin Aspart [facility] [address]-29 (70-30) 100 Active 60 units Prot & Aspart UNIT/ML BID Subcutaneous Atorvastatin [facility] 22360718909 40 MG Orally Active 1 tablet Calcium Once a day Clopidogrel [facility] 58619492565 75MG Orally Active 1 tablet Bisulfate Once a day Furosemide [facility] 20212738188 20 MG Orally Active 1 tablet Once a day Lexapro [facility] 30457031790 20 MG Orally Active 1 tablet Once a day Duloxetine HCl [facility] 76444417651 30 MG Orally Active 1 capsule Twice a day Furosemide [facility] 31111671324 20 MG Orally Active 1 tablet Once a day Results No Known Results Summary Purpose eClinicalWorks Submission
--- OUTSIDE RECORDS SUMMARY | 2018-08-22 18:35 | XMS REPORT ---
[...] Problem Hx of CABG Z95.1 Active Problem assisted current use of 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 Problem Dependent on wheelchair Z99.3 Active Problem Coronary artery disease involving I25.709 Active coronary bypass graft of [place] heart with angina pectoris Problem History of right above knee Z89.611 Active amputation Problem Chronic pain disorder G89.4 Active Problem History of CVA (cerebrovascular Z86.73 Active accident) Problem Migraine without aura and without G43.009 Active status migrainosus, not intractable Problem Neuropathy G62.9 Active Medications No Known Medications Results No Known Results Summary Purpose QuanttusinicalZiptr Submission
--- OUTSIDE RECORDS SUMMARY | 2018-08-22 18:35 | XMS REPORT ---
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 Medications Medication Code Code Instructions Start End Status Dosage System Date Date Metoprolol [facility] 51883449879 25 MG Orally Active 1 tablet Tartrate Twice a day with food Pantoprazole [facility] 25811548648 40 MG Orally Active 1 tablet Sodium Once a day Gabapentin [facility] 90403602500 800 MG Orally Active 1 tablet Three times a day Duloxetine HCl [facility] 21773430288 30 MG Orally Active 1 capsule Twice a day Aspirin [facility] 40149639193 81 MG Orally Active 1 tablet Once a day Insulin Aspart [facility] [address]-82 (70-30) 100 Active 60 units Prot & Aspart UNIT/ML BID Subcutaneous Ranexa [facility] 51085122525 500 MG Orally Active 1 tablet Twice a day Levetiracetam [facility] 58372030854 500 MG Orally Active 1 tablet Twice a day Lexapro [facility] 73330233137 20 MG Orally Active 1 tablet Once a day Xanax [facility] 22923369236 0.5 MG Orally Active 1 tablet Twice a day Clopidogrel [facility] 91842137241 75 MG Orally Active 1 tablet Bisulfate Once a day Klor-Con M10 [facility] 17796240743 10 MEQ Orally Active 1 tablet Twice a day with food Furosemide [facility] 40715160039 20 MG Orally Active 1 tablet Once a day Metformin HCl [facility] 39718824716 500 MG Orally Active 1 tablet Twice a day with meals Atorvastatin [facility] 86924934531 40 MG Orally Active 1 tablet Calcium Once a day Results No Known Results Summary Purpose eClinicalWorks Submission
--- OUTSIDE RECORDS SUMMARY | 2018-08-22 18:35 | XMS REPORT ---
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 Problem HTN (hypertension), benign I10 Active Problem Seizures R56.9 Active Assessment HTN (hypertension), benign I10 Active Assessment Chronic pain disorder G89.4 Active Assessment Neuropathy G62.9 Active Assessment Seizures R56.9 Active Assessment Type 2 diabetes mellitus with other E11.69 Active specified complication Problem Coronary artery disease involving I25.709 Active coronary bypass graft of [place] heart with angina pectoris Assessment Depression with anxiety F41.8 Active Assessment Coronary artery disease involving I25.709 Active coronary bypass graft of [place] heart with angina pectoris Medications Medication Code Code Instructions Start End Status Dosage System Date Date Atorvastatin [facility] 07704539939 40 MG Orally Active 1 tablet Calcium Once a day Lexapro [facility] 88645366613 20 MG Orally Active 1 tablet Once a day Levetiracetam [facility] 35214467297 500 MG Orally Active 1 tablet Twice a day Metoprolol [facility] 38769432531 25 MG Orally Active 1 tablet Tartrate Twice a day with food Ranexa [facility] 95149180373 500 MG Orally Active 1 tablet Twice a day Klor-Con M10 [facility] 37919093103 10 MEQ Orally Active 1 tablet Twice a day with food Insulin Aspart [facility] [address]-11 (70-30) 100 Active 60 units Prot & Aspart UNIT/ML BID Subcutaneous Metformin HCl [facility] 40829373548 500 MG Orally Active 1 tablet Twice a day with meals Aspirin [facility] 56966374626 81 MG Orally Active 1 tablet Once a day Gabapentin [facility] 33815170564 800 MG Orally Active 1 tablet Three times a day Furosemide [facility] 83662767797 20 MG Orally Active 1 tablet Once a day Pantoprazole [facility] 12241854694 40 MG Orally Active 1 tablet Sodium Once a day Duloxetine HCl [facility] 75290060741 30 MG Orally Active 1 capsule Twice a day Xanax [facility] 25706862561 0.5 MG Orally Active 1 tablet Twice a day Clopidogrel [facility] 29052580824 75 MG Orally Active 1 tablet Bisulfate Once a day Results No Known Results Summary Purpose eClinicalWorks Submission
--- NOTE | 2018-08-22 21:52 | EDPHYS ---
Physician Documentation [facility] Name: Karen Shah Age: 48 yrs Sex: Female : 1970 Arrival Date: 08/22/2018 Time: 18:35 Bed 6 Private MD: ED Physician Eliecer Castro HPI: 08/22 21:20 This 48 yrs old Female presents to ER via Wheelchair with complaints of Flu cp Symptoms. 21:20 The patient presents with nasal drainage, congestion. cp 21:20 Onset: The symptoms/episode began/occurred 3 day(s) ago. Associated signs and symptoms: cp Pertinent positives: sneezing, Pertinent negatives: cough, ear ache, sore throat. Severity of symptoms: in the emergency department the symptoms are unchanged despite home interventions. 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 lp1 Historical: - Allergies: 19:13 Toradol; lp1 19:13 tramadol; lp1 - Home Meds: 19:13 atorvastatin Oral [Active]; clopidogrel Oral [Active]; duloxetine Oral [Active]; lp1 escitalopram oxalate Oral [Active]; Furosemide Oral [Active]; gabapentin Oral [Active]; Isosorbide Mononitrate Oral [Active]; Metformin Oral [Active]; Nitroglycerin Topical [Active]; [place] Oral [Active]; - PMHx: 19:13 CAD; CVA; Diabetes - IDDM; High Cholesterol; Hypertension; Myocardial infarction; lp1 - PSHx: 19:13 CABG; AKA; Eye surgery; lp1 - Immunization history:: Adult Immunizations up to date, Flu vaccine is not up to date. Patient has never been vaccinated. - Social history:: Smoking status: Patient uses tobacco products, smokes two packs cigarettes per day. - Ebola Screening: : No symptoms or risks identified at this time. ROS: 21:25 Constitutional: Positive for chills, Negative for body aches, fever, poor PO intake. cp 21:25 Eyes: Negative for injury, pain, redness, and discharge. cp 21:25 ENT: Positive for rhinorrhea, nasal congestion, Negative for drainage from ear(s), ear pain, sinus pain, sore throat, difficulty swallowing, difficulty handling secretions. 21:25 Neck: Negative for pain with movement, pain at rest, stiffness. 21:25 Respiratory: Negative for cough, shortness of breath, wheezing. 21:25 Abdomen/GI: Negative for abdominal pain, nausea, vomiting, and diarrhea. 21:25 Back: Positive for pain at rest, pain with movement. 21:25 Skin: Negative for rash. 21:25 Neuro: Negative for dizziness, headache. 21:25 All other systems are negative. Exam: 21:30 Constitutional: The patient appears in no acute distress, alert, awake, non-toxic, well cp developed, well nourished. 21:30 Head/Face: Normocephalic, atraumatic. cp 21:30 Eyes: Periorbital structures: appear normal, Conjunctiva: normal, no exudate, no injection, Lids and lashes: appear normal, bilaterally. 21:30 ENT: External ear(s): are unremarkable, Ear canal(s): are normal, clear, TM's: bulging, is not appreciated, bilaterally, dullness, bilaterally, erythema, is not appreciated, bilaterally, Nose: nasal drainage, that is minimal, Mouth: Lips: moist, Oral mucosa: moist, Posterior pharynx: Airway: no evidence of obstruction, patent, Tonsils: no enlargement, no exudate, swelling, is not appreciated, erythema, that is mild, exudate, is not appreciated. 21:30 Neck: ROM/movement: is normal, is supple, without pain, no range of motions limitations, no meningismus, no nuchal rigidity, Lymph nodes: no appreciated lymphadenopathy. 21:30 Chest/axilla: Inspection: normal, Palpation: is normal, no crepitus, no tenderness. 21:30 Cardiovascular: Rate: normal, Rhythm: regular. 21:30 Respiratory: the patient does not display signs of respiratory distress, Respirations: normal, no use of accessory muscles, no retractions, no splinting, no tachypnea, labored breathing, is not present, Breath sounds: are clear throughout, no decreased breath sounds, no stridor, no wheezing. 21:30 Abdomen/GI: Exam negative for discomfort, distension, guarding, Inspection: abdomen appears normal. Vital Signs: 19:14 BP 159 / 92; Pulse 96; Resp 18; Temp 98.3(O); Pulse Ox 97% on R/A; Weight 84.37 kg (R); lp1 Height 5 ft. 4 in. (162.56 cm); 21:45 BP 153 / 87; Pulse 92; Resp 17 S; Pulse Ox 97% on R/A; cc3 19:14 Body Mass Index 31.93 (84.37 kg, 162.56 cm) lp1 MDM: 21:06 Patient medically screened. cp 21:30 Differential diagnosis: allergies, sinusitis, influenza, strep throat. cp 21:50 Data reviewed: vital signs, nurses notes, lab test result(s), Flu: negative and as a cp result, I will discharge patient. 21:50 Counseling: I had a detailed discussion with the patient and/or guardian regarding: the cp historical points, exam findings, and any diagnostic results supporting the discharge/admit diagnosis, lab results, to return to the emergency department if symptoms worsen or persist or if there are any questions or concerns that arise at home. ED course: VSS. Influenza test negative. Patient denies close contact with influenza positive persons and symptoms started over 48 hours prior. Recommend symptomatic treatment and continued monitoring. 08/22 19:15 Order name: Flu lp1 Administered Medications: No medications were administered Disposition: 08/22/18 21:52 Discharged to Home. Impression: Nasal congestion. - Condition is Stable. - Prescriptions for Flonase Allergy Relief 50 mcg/actuation Nasal spray,suspension - inhale 1 spray by INTRANASAL route once daily for 8-10 days; 1 unit. Zyrtec 10 mg Oral Tablet - take 1 tablet by ORAL route once daily As needed; 20 tablet. - Medication Reconciliation Form, Thank You Letter, Antibiotic Education, Prescription Opioid Use form. - Follow up: Private Physician; When: 2 - 3 days; Reason: Worsening of condition. - Problem is new. - Symptoms are unchanged. Signatures: Dispatcher [employer] EDMS Dottie Ahumada RN RN lp1 Isidro Mcdaniel PA PA cp Jyoti Fulton cc3 Corrections: (The following items were deleted from the chart) 22:01 21:52 08/22/2018 21:52 Discharged to Home. Impression: Nasal congestion. Condition is cc3 Stable. Forms are Medication Reconciliation Form, Thank You Letter, Antibiotic Education, Prescription Opioid Use. Follow up: Private Physician; When: 2 - 3 days; Reason: Worsening of condition. Problem is new. Symptoms are unchanged. cp
--- NOTE | 2018-08-22 21:52 | ER ---
Nurse's Notes [facility] Name: Karen Shah Age: 48 yrs Sex: Female : 1970 Arrival Date: 08/22/2018 Time: 18:35 Bed 6 Private MD: Diagnosis: Nasal congestion Presentation: 08/22 19:10 Presenting complaint: Patient states: Chills, runny nose, watery eyes since Monday; lp1 Denies fever, vomiting, diarrhea. Transition of care: patient was not received from another setting of care. Onset of symptoms was August 22, 2018. Risk Assessment: Do you want to hurt yourself or someone else? Patient reports no desire to harm self or others. Initial Sepsis Screen: Does the patient meet any 2 criteria? No. Patient's initial sepsis screen is negative. Does the patient have a suspected source of infection? No. Patient's initial sepsis screen is negative. Care prior to arrival: None. 19:10 Method Of Arrival: Wheelchair lp1 19:10 Acuity: ARIEL 4 lp1 Triage Assessment: 21:44 General: Appears in no apparent distress. comfortable, Behavior is calm, cooperative, cc3 appropriate for age. Pain: Denies pain. EENT: No signs and/or symptoms were reported regarding the EENT system. Neuro: Level of Consciousness is awake, alert, obeys commands, Oriented to person, place, time, situation, Appropriate for age. Cardiovascular: Patient's skin is warm and dry. Respiratory: Airway is patent Respiratory effort is even, unlabored, Respiratory pattern is regular, symmetrical. GI: Abdomen is round obese. : No signs and/or symptoms were reported regarding the genitourinary system. Derm: No signs and/or symptoms reported regarding the dermatologic system. Musculoskeletal: Circulation, motion, and sensation intact. Range of motion: intact in all extremities. 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 lp1 Historical: - Allergies: 19:13 Toradol; lp1 19:13 tramadol; lp1 - Home Meds: 19:13 atorvastatin Oral [Active]; clopidogrel Oral [Active]; duloxetine Oral [Active]; lp1 escitalopram oxalate Oral [Active]; Furosemide Oral [Active]; gabapentin Oral [Active]; Isosorbide Mononitrate Oral [Active]; Metformin Oral [Active]; Nitroglycerin Topical [Active]; [place] Oral [Active]; - PMHx: 19:13 CAD; CVA; Diabetes - IDDM; High Cholesterol; Hypertension; Myocardial infarction; lp1 - PSHx: 19:13 CABG; AKA; Eye surgery; lp1 - Immunization history:: Adult Immunizations up to date, Flu vaccine is not up to date. Patient has never been vaccinated. - Social history:: Smoking status: Patient uses tobacco products, smokes two packs cigarettes per day. - Ebola Screening: : No symptoms or risks identified at this time. Screenin:14 Abuse screen: Denies threats or abuse. Denies injuries from another. Nutritional lp1 screening: No deficits noted. Tuberculosis screening: No symptoms or risk factors identified. 21:44 Fall Risk Ambulatory Aid- None/Bed Rest/Nurse Assist (0 pts). Gait- Normal/Bed cc3 Rest/Wheelchair (0 pts) Mental Status- Oriented to own ability (0 pts). Assessment: 21:44 General: see triage assessment. cc3 22:01 Reassessment: Patient appears in no apparent distress at this time. Patient and/or cc3 family updated on plan of care and expected duration. Pain level reassessed. Patient is alert, oriented x 3, equal unlabored respirations, skin warm/dry/pink. ALVARADO Mcdaniel discharged the patient home with prescription given. No IV cannula in situ. Patient left ER vitally stable by wheelchair escorted by her family. Vital Signs: 19:14 BP 159 / 92; Pulse 96; Resp 18; Temp 98.3(O); Pulse Ox 97% on R/A; Weight 84.37 kg (R); lp1 Height 5 ft. 4 in. (162.56 cm); 21:45 BP 153 / 87; Pulse 92; Resp 17 S; Pulse Ox 97% on R/A; cc3 19:14 Body Mass Index 31.93 (84.37 kg, 162.56 cm) lp1 ED Course: 18:35 Patient arrived in ED. tw3 19:11 Triage completed. lp1 19:14 Arm band placed on right wrist. lp1 19:16 Flu and/or RSV swab sent to lab. lp1 21:06 Isid[facility]cd[facility]iel [facility]. cp 21:06 Eliecer Castro MD is Attending Physician. cp 21:44 Cordel, Jyoti is Primary Nurse. cc3 :44 Patient has correct armband on for positive identification. Bed in low position. Call cc3 light in reach. Side rails up X 1. Pulse ox on. NIBP on. 22:01 No provider procedures requiring assistance completed. Patient did not have IV access cc3 during this emergency room visit. Administered Medications: No medications were administered Outcome: :52 Discharge ordered by MD. cp 22:01 Patient left the ED. cc3 22:01 Discharged to home via wheelchair, with family. cc3 22:01 Condition: stable 22:01 Discharge instructions given to patient, family, Instructed on discharge instructions, follow up and referral plans. medication usage, Demonstrated understanding of instructions, follow-up care, medications, Prescriptions given X 2. Signatures: Dottie Ahumada, RN RN lp1 Isidro Mcdaniel PA PA phyllis Boyd, Charlette tw3 Jyoti Fulton cc3
[2018-08-22 23:13] VITALS: BP 159/92; TEMP 98.3; O2SAT 97
== END 2018-08-22 22:01 | disposition home or self-care (01) ==
LOC: ER 18:32
DX: R09.81 Nasal congestion (principal); I10 Essential (primary) hypertension; E11.9 Type 2 diabetes mellitus without complications; E78.00 Pure hypercholesterolemia, unspecified; Z95.1 Presence of aortocoronary bypass graft; F17.210 Nicotine dependence, cigarettes, uncomplicated; Z86.73 Personal history of transient ischemic attack (TIA), and cerebral infarction without residual deficits; Z88.5 Allergy status to narcotic agent
CPT/HCPCS: 87804; 99283

== ENCOUNTER 2018-09-18 17:05 | Emergency (ER) | payer OTHER ==
--- OUTSIDE RECORDS SUMMARY | 2018-09-18 17:07 | XMS REPORT ---
:1970 [facility] Address [address] [place] [address] Care Team Providers Name Role Phone Unavailable Unavailable Unavailable Problems This patient has no known problems. Allergies, Adverse Reactions, Alerts This patient has no known allergies or adverse reactions. Medications This patient has no known medications.
--- OUTSIDE RECORDS SUMMARY | 2018-09-18 17:08 | XMS REPORT ---
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
--- OUTSIDE RECORDS SUMMARY | 2018-09-18 17:08 | XMS REPORT ---
[...] Assessment Hx of CABG Z95.1 Active Problem residential current use of 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 Assessment Migraine without aura and without G43.009 Active status migrainosus, not intractable Problem Depression with anxiety F41.8 Active Problem HTN (hypertension), benign I10 Active Problem Seizures R56.9 Active Problem Dependent on wheelchair Z99.3 Active Problem Coronary artery disease involving I25.709 Active coronary bypass graft of [place] heart with angina pectoris Assessment Seizures R56.9 Active Assessment Neuropathy G62.9 Active Problem History of right above knee Z89.611 Active amputation 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 Problem Chronic pain disorder G89.4 Active Problem History of CVA (cerebrovascular Z86.73 Active accident) Problem Migraine without aura and without G43.009 Active status migrainosus, not intractable Problem Neuropathy G62.9 Active Assessment Depression with anxiety F41.8 Active Assessment Coronary artery disease involving I25.709 Active coronary bypass graft of [place] heart with angina pectoris Assessment HTN (hypertension), benign I10 Active Assessment Chronic pain disorder G89.4 Active Problem Type 2 diabetes mellitus with other E11.69 Active specified complication Problem Type 2 diabetes mellitus with E11.65 Active hyperglycemia Assessment Type 2 diabetes mellitus with other E11.69 Active specified complication Medications Medication Code Code Instructions Start End Status Dosage System Date Date Metformin HCl [facility] 12860964879 500 MG Orally Active 1 tablet Twice a day with meals Pantoprazole [facility] 66891520618 40 MG Orally Active 1 tablet Sodium Once a day Klor-Con M10 [facility] 38618032379 10 MEQ Orally Active 1 tablet Twice a day with food Xanax [facility] 05652604498 0.5 MG Orally Inactive 1 tablet Twice a day Ranexa [facility] 62698144978 500 MG Orally Active 1 tablet Twice a day Duloxetine HCl [facility] 69707158371 30 MG Orally Active 1 capsule Twice a day Levetiracetam [facility] 48843962335 500 MG Orally Active 1 tablet Twice a day Clopidogrel [facility] 67067374572 75 MG Orally Active 1 tablet Bisulfate Once a day [place] [facility] 73225386478 7.5-325 MG Active 1 tablet Orally every 12 as needed hrs Aspirin [facility] 71698800945 81 MG Orally Active 1 tablet Once a day Lexapro [facility] 58591838501 20MG Orally Active 1 tablet Once a day Gabapentin [facility] 90858829874 800 MG Orally Active 1 tablet Three times a day Atorvastatin [facility] 89353144380 40 MG Orally Active 1 tablet Calcium Once a day Metoprolol [facility] 84559312025 25 MG Orally Active 1 tablet Tartrate Twice a day with food Insulin Aspart [facility] [address]-45 (70-30) 100 Active 60 units Prot & Aspart UNIT/ML BID Subcutaneous Atorvastatin [facility] 58177097670 40 MG Orally Active 1 tablet Calcium Once a day Clopidogrel [facility] 12702305185 75MG Orally Active 1 tablet Bisulfate Once a day Furosemide [facility] 03075072341 20 MG Orally Active 1 tablet Once a day Lexapro [facility] 16624061101 20 MG Orally Active 1 tablet Once a day Duloxetine HCl [facility] 88272872274 30 MG Orally Active 1 capsule Twice a day Furosemide [facility] 62194861516 20 MG Orally Active 1 tablet Once a day Results No Known Results Summary Purpose eClinicalWorks Submission
--- OUTSIDE RECORDS SUMMARY | 2018-09-18 17:08 | XMS REPORT ---
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 Medications Medication Code Code Instructions Start End Status Dosage System Date Date Metoprolol [facility] 89563514323 25 MG Orally Active 1 tablet Tartrate Twice a day with food Pantoprazole [facility] 90112747155 40 MG Orally Active 1 tablet Sodium Once a day Gabapentin [facility] 42983096379 800 MG Orally Active 1 tablet Three times a day Duloxetine HCl [facility] 56700463273 30 MG Orally Active 1 capsule Twice a day Aspirin [facility] 46320022440 81 MG Orally Active 1 tablet Once a day Insulin Aspart [facility] [address]-87 (70-30) 100 Active 60 units Prot & Aspart UNIT/ML BID Subcutaneous Ranexa [facility] 61484892018 500 MG Orally Active 1 tablet Twice a day Levetiracetam [facility] 02412379802 500 MG Orally Active 1 tablet Twice a day Lexapro [facility] 47248614881 20 MG Orally Active 1 tablet Once a day Xanax [facility] 06862335828 0.5 MG Orally Active 1 tablet Twice a day Clopidogrel [facility] 89201976968 75 MG Orally Active 1 tablet Bisulfate Once a day Klor-Con M10 [facility] 96769116349 10 MEQ Orally Active 1 tablet Twice a day with food Furosemide [facility] 54598537904 20 MG Orally Active 1 tablet Once a day Metformin HCl [facility] 08863051277 500 MG Orally Active 1 tablet Twice a day with meals Atorvastatin [facility] 96485240372 40 MG Orally Active 1 tablet Calcium Once a day Results No Known Results Summary Purpose eClinicalWorks Submission
--- OUTSIDE RECORDS SUMMARY | 2018-09-18 17:08 | XMS REPORT ---
[...] involving I25.709 Active coronary bypass graft of [place] heart with angina pectoris Problem History of right above knee Z89.611 Active amputation Problem Chronic pain disorder G89.4 Active Problem History of CVA (cerebrovascular Z86.73 Active accident) Problem Migraine without aura and without G43.009 Active status migrainosus, not intractable Problem Neuropathy G62.9 Active Medications No Known Medications Results No Known Results Summary Purpose [employer] Submission
--- OUTSIDE RECORDS SUMMARY | 2018-09-18 17:08 | XMS REPORT ---
[...] involving I25.709 Active coronary bypass graft of [place] heart with angina pectoris Problem History of right above knee Z89.611 Active amputation Problem Chronic pain disorder G89.4 Active Problem History of CVA (cerebrovascular Z86.73 Active accident) Problem Migraine without aura and without G43.009 Active status migrainosus, not intractable Problem Neuropathy G62.9 Active Medications No Known Medications Results No Known Results Summary Purpose [employer] Submission
--- OUTSIDE RECORDS SUMMARY | 2018-09-18 17:08 | XMS REPORT ---
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 Problem HTN (hypertension), benign I10 Active Problem Seizures R56.9 Active Assessment HTN (hypertension), benign I10 Active Assessment Chronic pain disorder G89.4 Active Assessment Neuropathy G62.9 Active Assessment Seizures R56.9 Active Assessment Type 2 diabetes mellitus with other E11.69 Active specified complication Problem Coronary artery disease involving I25.709 Active coronary bypass graft of [place] heart with angina pectoris Assessment Depression with anxiety F41.8 Active Assessment Coronary artery disease involving I25.709 Active coronary bypass graft of [place] heart with angina pectoris Medications Medication Code Code Instructions Start End Status Dosage System Date Date Atorvastatin [facility] 16849677957 40 MG Orally Active 1 tablet Calcium Once a day Lexapro [facility] 46433078602 20 MG Orally Active 1 tablet Once a day Levetiracetam [facility] 12414164507 500 MG Orally Active 1 tablet Twice a day Metoprolol [facility] 06224805674 25 MG Orally Active 1 tablet Tartrate Twice a day with food Ranexa [facility] 73437967671 500 MG Orally Active 1 tablet Twice a day Klor-Con M10 [facility] 41099478790 10 MEQ Orally Active 1 tablet Twice a day with food Insulin Aspart [facility] [address]-97 (70-30) 100 Active 60 units Prot & Aspart UNIT/ML BID Subcutaneous Metformin HCl [facility] 32366758228 500 MG Orally Active 1 tablet Twice a day with meals Aspirin [facility] 13631040196 81 MG Orally Active 1 tablet Once a day Gabapentin [facility] 19762685402 800 MG Orally Active 1 tablet Three times a day Furosemide [facility] 53250921478 20 MG Orally Active 1 tablet Once a day Pantoprazole [facility] 11548923843 40 MG Orally Active 1 tablet Sodium Once a day Duloxetine HCl [facility] 54832021589 30 MG Orally Active 1 capsule Twice a day Xanax [facility] 08408406440 0.5 MG Orally Active 1 tablet Twice a day Clopidogrel [facility] 48365252925 75 MG Orally Active 1 tablet Bisulfate Once a day Results No Known Results Summary Purpose eClinicalWorks Submission
[2018-09-18 17:57] LABS: Urine Specific Gravity 1.015 (1.005-1.030)
[2018-09-18 17:57] LABS: Urine Blood 1+ (NEG); Urine Glucose 2+ (NEG); Urine Protein 1+ (NEG); Urine Specific Gravity 1.015 (1.005-1.030)
[2018-09-18] MEDS ORDERED: FENTANYL CITR 100 MCG/2 ML ONE (18:02)
[2018-09-18] MEDS ORDERED: ONDANSETRON 4 MG/2 ML VIAL ONE (18:02)
[2018-09-18] MEDS ORDERED: CEFTRIAXONE/SWI 1gm 2 GM/20 ML SYR ONE (18:03)
[2018-09-18] MEDS ORDERED: NA CHLORIDE 0.9% 500 ML ONE (18:03)
[2018-09-18] MEDS ORDERED: Levofloxacin500mg IV 0 MG/0 ML BAG IV ONE (18:03)
[2018-09-18 18:06] LABS: Absolute Lymphocytes (CBC) 1.9 K/uL (0.7-4.9); Absolute Monocytes 0.6 K/uL (0.1-1.3); Absolute Neutrophil 8.4 K/uL (1.8-8.0); Basophils % 0.9 % (0-1.3); Eosinophils % 3.6 % (0-4.4); Hematocrit 43.2 % (36.0-45.0); Lymphocytes % 16.6 % (15.3-44.8); MPV 8.3 fL (7.6-11.3); Monocytes % 5.1 % (3.3-12.3); RBC Red Blood Cell Count 4.85 M/uL (3.86-4.86)
--- NOTE | 2018-09-18 18:18 | RAD REPORT ---
EXAM DESCRIPTION: CT - Stone Protocol - 09/18/2018 6:08 pm CLINICAL HISTORY: Back pain, flank pain, urinary retention COMPARISON: None. TECHNIQUE: Axial 5 mm thick images were obtained without oral or IV contrast. The [id number] span s the entirety of the system including uppermost abdomen and lung bases. All CT scans are performed using dose optimization technique as appropriate and may include automated exposure control or mA/KV adjustment according to patient size. FINDINGS: No hydronephrosis is present and no obstructing ureteral calculi. Bilateral nonobstructing caliceal or pyramid calcifications are present. No perinephric stranding. No suspicious renal masses . Isodense masses and pyelonephritis are not excluded on a stone protocol CT scan. Urinary bladder is partially filled. [place] are slightly thickened along the anterior and left lateral margin. No bladde r calculus. No significant adrenal finding. Uterus and ovaries show no suspicious findings. Imaged portions of the liver, spleen and pancreas show no suspicious findings on non-contrast imaging . No gallbladder or biliary tree abnormality identified. No suspicious bowel findings. Appendix is normal. No hernia, mass or bulky lymphadenopathy noted. No free air, free fluid or inflammatory stranding. No acute bone finding. Degenerative changes are present. Right common iliac and right external iliac stents are in place. IMPRESSION: No hydronephrosis, obstructing calculus or acute renal or ureteral finding. Urinary bladder wall thickening without a clearly defined mass. Correlation is needed with any cystit is findings. Isodense masses and pyelonephritis are not excluded on stone protocol technique.
[2018-09-18 18:23] LABS: Albumin 3.1 g/dL (3.4-5.0); Bilirubin Total 0.4 mg/dL (0.2-1.0); Potassium 4.3 mmol/L (3.5-5.1); Protein, Total 7.1 g/dL (6.4-8.2)
[2018-09-18] MEDS ORDERED: levoFLOXacin 500 MG TAB ONE (18:42)
--- NOTE | 2018-09-18 18:46 | ER ---
Nurse's Notes [facility] Name: Karen Shah Age: 48 yrs Sex: Female : 1970 Arrival Date: 09/18/2018 Time: 17:07 Bed 6 Private MD: Dada Horan Diagnosis: Cystitis;Urinary tract infection, site not specified;Type 1 diabetes mellitus Presentation: 09/18 17:08 Presenting complaint: Patient states: urinary retention x 1 day with low back pain. sv Transition of care: patient was not received from another setting of care. Onset of symptoms was September 17, 2018. Care prior to arrival: None. 17:08 Method Of Arrival: Wheelchair sv 17:08 Acuity: ARIEL 3 sv 17:30 Risk Assessment: Do you want to hurt yourself or someone else? Patient reports no jl7 desire to harm self or others. Initial Sepsis Screen: Does the patient meet any 2 criteria? No. Patient's initial sepsis screen is negative. Does the patient have a suspected source of infection? No. Patient's initial sepsis screen is negative. Historical: - Allergies: 17:09 Toradol; sv 17:09 tramadol; sv - PMHx: 17:09 CAD; CVA; Diabetes - IDDM; High Cholesterol; Hypertension; Myocardial infarction; sv - PSHx: 17:09 CABG; AKA; Eye surgery; sv - Immunization history:: Adult Immunizations unknown. - Social history:: Smoking status: unknown. - Family history:: not pertinent. - Ebola Screening: : No symptoms or risks identified at this time. Screenin:30 Abuse screen: Denies threats or abuse. Denies injuries from another. Nutritional jl7 screening: No deficits noted. Tuberculosis screening: No symptoms or risk factors identified. Fall Risk None identified. Assessment: 17:30 General: Appears in no apparent distress. uncomfortable, Behavior is calm, cooperative, jl7 appropriate for age. Pain: Denies pain. Neuro: Level of Consciousness is awake, alert, obeys commands, Oriented to person, place, time. Cardiovascular: Patient's skin is warm and dry. Respiratory: Airway is patent Respiratory effort is even, unlabored, Respiratory pattern is regular, symmetrical. : Urine is cloudy, Reports inability to void. Derm: Skin is pink, warm \T\ dry. 18:30 Reassessment: Patient appears in no apparent distress at this time. Patient and/or jl7 family updated on plan of care and expected duration. Pain level reassessed. Patient is alert, oriented x 3, equal unlabored respirations, skin warm/dry/pink. Vital Signs: 17:09 BP 147 / 98; Pulse 83; Resp 22; Temp 97.4; Pulse Ox 100% ; Height 5 ft. 4 in. (162.56 sv cm); 18:30 BP 141 / 91; Pulse 82; Resp 18 S; Pulse Ox 100% on R/A; jl7 ED Course: 17:07 Patient arrived in ED. as 17:07 Dada Horan DO is Private Physician. as 17:09 Triage completed. sv 17:09 Arm band placed on. sv 17:12 Saqib Ren, CHIDI is Primary Nurse. jl7 17:20 Isidro Villa MD is Attending Physician. [facility] 17:30 Patient has correct armband on for positive identification. Bed in low position. Call jl7 light in reach. Side rails up X 1. Pulse ox on. NIBP on. 17:30 Bladder scan completed. 51 mL. Straight cath inserted, using sterile technique, 16 Fr. jl7 Specimen obtained. Returned 32 mL. Patient tolerated well. 18:04 Initial lab(s) drawn, by hi, sent to lab. Inserted saline lock: 22 gauge in right jb1 forearm, using aseptic technique. Blood collected. 18:[address] via stretcher. 2 18:06 CT completed. Patient tolerated procedure well. Patient moved back from [place]. 2 18:09 CT Stone Protocol In Process Unspecified. EDMS 18:45 Dada Horan DO is Referral Physician. chasity 18:45 Rika Pastor MD is Referral Physician. chasity 19:04 No provider procedures requiring assistance completed. IV discontinued, intact, jl7 bleeding controlled, No redness/swelling at site. Pressure dressing applied. Administered Medications: 18:15 Drug: NS 0.9% 500 ml Route: IV; Rate: bolus; Site: right forearm; jl7 18:45 Follow up: IV Status: Completed infusion; IV Intake: 500ml 7 18:16 Drug: Zofran 4 mg Route: IVP; Site: right forearm; jl7 18:52 Follow up: Response: No adverse reaction jl7 18:18 Drug: fentaNYL (PF) 50 mcg Route: IVP; Site: right forearm; jl7 18:52 Follow up: Response: No adverse reaction; Pain is decreased jl7 18:22 Drug: Rocephin 2 grams Route: IV; Rate: per protocol; Site: right forearm; jl7 18:26 Follow up: Response: No adverse reaction; IV Status: Completed infusion jl7 18:33 Drug: LevOfloxacin 500 mg Route: PO; jl7 18:52 Follow up: Response: No adverse reaction jl7 19:02 Drug: Bactrim (160 mg-800 mg (DS) 1 tablet Route: PO; jl7 19:02 Follow up: Response: Medication administered at discharge. jl7 Intake: 18:45 IV: 500ml; Total: 500ml. jl7 Outcome: 18:45 Discharge ordered by . chasity 19:04 Discharged to home ambulatory. jl7 19:04 Condition: stable 19:04 Discharge instructions given to patient, family, Instructed on discharge instructions, follow up and referral plans. medication usage, Demonstrated understanding of instructions, follow-up care, medications, Prescriptions given X 3. 19:06 Patient left the ED. jl7 Addendum: 09/23/2018 07:31 Addendum: Culture Results: Positive urine culture. No further action required. Bacteria i w sensitive to prescribed antibiotic. Signatures: Dispatcher [employer] EDMS Juanjose Shetty jb1 Arpita Ramirez RN RN sv Anderson, Corey, MD MD cha Martinez, Amelia as Williams, Irene, RN RN iw Leal, Jahala, RN RN jl Kamille Kulkarni 2 Corrections: (The following items were deleted from the chart) 09/18 19:03 19:03 Reassessment: Patient appears in no apparent distress at this time. Patient jl7 and/or family updated on plan of care and expected duration. Pain level reassessed. Patient is alert, oriented x 3, equal unlabored respirations, skin warm/dry/pink. jl7
--- NOTE | 2018-09-18 18:46 | EDPHYS ---
Physician Documentation [facility] Name: Karen Shah Age: 48 yrs Sex: Female : 1970 Arrival Date: 09/18/2018 Time: 17:07 Bed 6 Private MD: Aung [facility] ED Physician Isidro Villa HPI: 09/18 17:47 This 48 yrs old Female presents to ER via Wheelchair with complaints of chasity Urinary Retention. 17:47 The patient presents with urinary symptoms, hematuria. Onset: The symptoms/episode chasity began/occurred 2 day(s) ago. Modifying factors: The symptoms are alleviated by nothing, the symptoms are aggravated by nothing. Associated signs and symptoms: Pertinent positives: dysuria, urinary frequency. Severity of symptoms: At their worst the symptoms were mild, moderate, in the emergency department the symptoms are unchanged. The patient has not experienced similar symptoms in the past. Historical: - Allergies: 17:09 Toradol; sv 17:09 tramadol; sv - PMHx: 17:09 CAD; CVA; Diabetes - IDDM; High Cholesterol; Hypertension; Myocardial infarction; sv - PSHx: 17:09 CABG; AKA; Eye surgery; sv - Immunization history:: Adult Immunizations unknown. - Social history:: Smoking status: unknown. - Family history:: not pertinent. - Ebola Screening: : No symptoms or risks identified at this time. ROS: 17:47 Constitutional: Negative for fever, chills, and weight loss, Eyes: Negative for injury, chasity pain, redness, and discharge, ENT: Negative for injury, pain, and discharge, Neck: Negative for injury, pain, and swelling, Cardiovascular: Negative for chest pain, palpitations, and edema, Respiratory: Negative for shortness of breath, cough, wheezing, and pleuritic chest pain, Abdomen/GI: Negative for abdominal pain, nausea, vomiting, diarrhea, and constipation, Back: Negative for injury and pain, MS/Extremity: Negative for injury and deformity, Skin: Negative for injury, rash, and discoloration, Neuro: Negative for headache, weakness, numbness, tingling, and seizure, Psych: Negative for depression, anxiety, suicide ideation, homicidal ideation, and hallucinations, Allergy/Immunology: Negative for hives, rash, and allergies, Endocrine: Negative for neck swelling, polydipsia, polyuria, polyphagia, and marked weight changes. 17:47 : Positive for urinary symptoms, of the back and abdomen. Exam: 17:47 Constitutional: This is a well developed, well nourished patient who is awake, alert, chasity and in no acute distress. Head/Face: Normocephalic, atraumatic. Eyes: Pupils equal round and reactive to light, extra-ocular motions intact. Lids and lashes normal. Conjunctiva and sclera are non-icteric and not injected. Cornea within normal limits. Periorbital areas with no swelling, redness, or edema. ENT: Nares patent. No nasal discharge, no septal abnormalities noted. Tympanic membranes are normal and external auditory canals are clear. Oropharynx with no redness, swelling, or masses, exudates, or evidence of obstruction, uvula midline. Mucous membranes moist. Neck: Trachea midline, no thyromegaly or masses palpated, and no cervical lymphadenopathy. Supple, full range of motion without nuchal rigidity, or vertebral point tenderness. No Meningismus. Chest/axilla: Normal chest wall appearance and motion. Nontender with no deformity. No lesions are appreciated. Cardiovascular: Regular rate and rhythm with a normal S1 and S2. No gallops, murmurs, or rubs. Normal PMI, no JVD. No pulse deficits. Respiratory: Lungs have equal breath sounds bilaterally, clear to auscultation and percussion. No rales, rhonchi or wheezes noted. No increased work of breathing, no retractions or nasal flaring. Back: No spinal tenderness. No costovertebral tenderness. Full range of motion. Female : Normal external genitalia. Skin: Warm, dry with normal turgor. Normal color with no rashes, no lesions, and no evidence of cellulitis. MS/ Extremity: Pulses equal, no cyanosis. Neurovascular intact. Full, normal range of motion. Neuro: Awake and alert, GCS 15, oriented to person, place, time, and situation. Cranial nerves II-XII grossly intact. Motor strength 5/5 in all extremities. Sensory grossly intact. Cerebellar exam normal. Normal gait. Psych: Awake, alert, with orientation to person, place and time. Behavior, mood, and affect are within normal limits. 17:47 Abdomen/GI: Inspection: abdomen appears normal, Bowel sounds: normal, Palpation: mild abdominal tenderness, in the suprapubic area, Liver: no appreciated palpable abnormalities, Hernia: not appreciated. Vital Signs: 17:09 BP 147 / 98; Pulse 83; Resp 22; Temp 97.4; Pulse Ox 100% ; Height 5 ft. 4 in. (162.56 sv cm); 18:30 BP 141 / 91; Pulse 82; Resp 18 S; Pulse Ox 100% on R/A; jl7 MDM: 17:20 Patient medically screened. [facility] 17:47 Data reviewed: vital signs, nurses notes, lab test result(s), radiologic studies, CT chasity scan. 09/18 17:26 Order name: Urine Culture [facility] 09/18 17:41 Order name: Urine Dipstick--Ancillary (enter results); Complete Time: 18:40 09/18 17:43 Order name: Urine --Ancillary (enter results); Complete Time: 18:40 09/18 17:47 Order name: CBC with Diff [facility] 09/18 17:47 Order name: Comprehensive Metabolic Panel; Complete Time: 18:40 [facility] 09/18 17:47 Order name: CT Stone Protocol; Complete Time: 18:41 [facility] 09/18 17:26 Order name: Bladder Scanner; Complete Time: 17:42 [facility] 09/18 17:26 Order name: Urine Dipstick-Ancillary (obtain specimen); Complete Time: 17:42 [facility] Administered Medications: 18:15 Drug: NS 0.9% 500 ml Route: IV; Rate: bolus; Site: right forearm; jl7 18:45 Follow up: IV Status: Completed infusion; IV Intake: 500ml jl7 18:16 Drug: Zofran 4 mg Route: IVP; Site: right forearm; jl7 18:52 Follow up: Response: No adverse reaction jl7 18:18 Drug: fentaNYL (PF) 50 mcg Route: IVP; Site: right forearm; jl7 18:52 Follow up: Response: No adverse reaction; Pain is decreased jl7 18:22 Drug: Rocephin 2 grams Route: IV; Rate: per protocol; Site: right forearm; jl7 18:26 Follow up: Response: No adverse reaction; IV Status: Completed infusion jl7 18:33 Drug: LevOfloxacin 500 mg Route: PO; jl7 18:52 Follow up: Response: No adverse reaction jl7 19:02 Drug: Bactrim (160 mg-800 mg (DS) 1 tablet Route: PO; jl7 19:02 Follow up: Response: Medication administered at discharge. jl7 Disposition: 09/18/18 18:45 Discharged to Home. Impression: Cystitis, Urinary tract infection, site not specified, Type 1 diabetes mellitus. - Condition is Stable. - Discharge Instructions: Dysuria, Urinary Tract Infection, Adult, Urinary Tract Infection, Adult, Fgpl-fv-Wzcy, Type 1 Diabetes Mellitus, Self Care, Adult, Type 1 Diabetes Mellitus, Self Care, Adult, Gsdc-zn-[id number]. - Prescriptions for Levaquin 500 mg Oral Tablet - take 1 tablet by ORAL route once daily for 7 days; 7 tablet. Pyridium 200 mg Oral Tablet - take 1 tablet by ORAL route every 8 hours for 3 days; 9 tablet. Bactrim DS 800- 160 mg Oral Tablet - take 1 tablet by ORAL route every 12 hours for 7 days; 14 tablet. Fluconazole 200 mg Oral Tablet - take 1 tablet by ORAL route once daily; 2 tablet. - Medication Reconciliation Form, Thank You Letter, Antibiotic Education, Prescription Opioid Use form. - Follow up: Dada Horan; When: 2 - 3 days; Reason: Recheck today's complaints, Continuance of care, Re-evaluation by your physician. Follow up: Rika Pastor MD; When: 2 - 3 days; Reason: Recheck today's complaints, Continuance of care, Re-evaluation by your physician. - Problem is new. - Symptoms have improved. Signatures: Dispatcher [employer] EDArpita Coughlin RN RN sv Anderson, Corey, MD MD cha Leal, Jahala, RN RN jl7 Corrections: (The following items were deleted from the chart) 19:06 18:45 09/18/2018 18:45 Discharged to Home. Impression: Cystitis; Urinary tract jl7 infection, site not specified; Type 1 diabetes mellitus. Condition is Stable. Discharge Instructions: Dysuria, Urinary Tract Infection, Adult, Urinary Tract Infection, Adult, Stzu-hc-Yvfu, Type 1 Diabetes Mellitus, Self Care, Adult, Type 1 Diabetes Mellitus, Self Care, Adult, Nypi-ij-Ysxy. Prescriptions for Levaquin 500 mg Oral Tablet - take 1 tablet by ORAL route once daily for 7 days; 7 tablet, Pyridium 200 mg Oral Tablet - take 1 tablet by ORAL route every 8 hours for 3 days; 9 tablet, Bactrim DS 800-160 mg Oral Tablet - take 1 tablet by ORAL route every 12 hours for 7 days; 14 tablet. and Forms are Medication Reconciliation Form, Thank You Letter, Antibiotic Education, Prescription Opioid Use. Follow up: Dada Horan; When: 2 - 3 days; Reason: Recheck today's complaints, Continuance of care, Re-evaluation by your physician. Follow up: Rika Pastor; When: 2 - 3 days; Reason: Recheck today's complaints, Continuance of care, Re-evaluation by your physician. Problem is new. Symptoms have improved. chasity
[2018-09-18] MEDS ORDERED: SMZ./TMP. 800/160 MG TABLET ONE (19:07)
[2018-09-18 19:19] VITALS: TEMP 97.4; O2SAT 100
[2018-09-18 19:21] VITALS: BP 141/91
== END 2018-09-18 19:06 | disposition home or self-care (01) ==
LOC: ER 17:05
DX: N30.90 Cystitis, unspecified without hematuria (principal); E10.9 Type 1 diabetes mellitus without complications; I25.10 Atherosclerotic heart disease of native coronary artery without angina pectoris; I10 Essential (primary) hypertension; I25.2 Old myocardial infarction; E78.00 Pure hypercholesterolemia, unspecified; Z79.4 Long term (current) use of insulin; Z86.73 Personal history of transient ischemic attack (TIA), and cerebral infarction without residual deficits
CPT/HCPCS: 87088; 85025; 87086; 36415; 81025; 87077; 87186; 81003; 80053; 76377; 74176; 51702; 96375; 96374; 99284; J3010; J0696; J2405

== ENCOUNTER 2018-11-07 19:08 | Emergency (ER) | payer OTHER ==
--- OUTSIDE RECORDS SUMMARY | 2018-11-07 19:11 | XMS REPORT ---
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 Problem HTN (hypertension), benign I10 Active Problem Seizures R56.9 Active Assessment HTN (hypertension), benign I10 Active Assessment Chronic pain disorder G89.4 Active Assessment Neuropathy G62.9 Active Assessment Seizures R56.9 Active Assessment Type 2 diabetes mellitus with other E11.69 Active specified complication Problem Coronary artery disease involving I25.709 Active coronary bypass graft of [place] heart with angina pectoris Assessment Depression with anxiety F41.8 Active Assessment Coronary artery disease involving I25.709 Active coronary bypass graft of [place] heart with angina pectoris Medications Medication Code Code Instructions Start End Status Dosage System Date Date Atorvastatin [facility] 12004899654 40 MG Orally Active 1 tablet Calcium Once a day Lexapro [facility] 94688958093 20 MG Orally Active 1 tablet Once a day Levetiracetam [facility] 72895026039 500 MG Orally Active 1 tablet Twice a day Metoprolol [facility] 18295629553 25 MG Orally Active 1 tablet Tartrate Twice a day with food Ranexa [facility] 26601811086 500 MG Orally Active 1 tablet Twice a day Klor-Con M10 [facility] 62069444592 10 MEQ Orally Active 1 tablet Twice a day with food Insulin Aspart [facility] [address]-81 (70-30) 100 Active 60 units Prot & Aspart UNIT/ML BID Subcutaneous Metformin HCl [facility] 54324629256 500 MG Orally Active 1 tablet Twice a day with meals Aspirin [facility] 63765236673 81 MG Orally Active 1 tablet Once a day Gabapentin [facility] 03673790018 800 MG Orally Active 1 tablet Three times a day Furosemide [facility] 72123578990 20 MG Orally Active 1 tablet Once a day Pantoprazole [facility] 98478584012 40 MG Orally Active 1 tablet Sodium Once a day Duloxetine HCl [facility] 47506153810 30 MG Orally Active 1 capsule Twice a day Xanax [facility] 05843292016 0.5 MG Orally Active 1 tablet Twice a day Clopidogrel [facility] 95294101700 75 MG Orally Active 1 tablet Bisulfate Once a day Results No Known Results Summary Purpose eClinicalWorks Submission
--- OUTSIDE RECORDS SUMMARY | 2018-11-07 19:11 | XMS REPORT ---
:1970 [facility] Address [address] [place] [address] Care Team Providers Name Role Phone Unavailable Unavailable Unavailable Problems This patient has no known problems. Allergies, Adverse Reactions, Alerts This patient has no known allergies or adverse reactions. Medications This patient has no known medications.
--- OUTSIDE RECORDS SUMMARY | 2018-11-07 19:12 | XMS REPORT ---
[...] Problem Hx of CABG Z95.1 Active Problem correction current use of 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 Problem Dependent on wheelchair Z99.3 Active Problem Coronary artery disease involving I25.709 Active coronary bypass graft of [place] heart with angina pectoris Problem History of right above knee Z89.611 Active amputation Problem Chronic pain disorder G89.4 Active Problem History of CVA (cerebrovascular Z86.73 Active accident) Problem Migraine without aura and without G43.009 Active status migrainosus, not intractable Problem Neuropathy G62.9 Active Medications No Known Medications Results No Known Results Summary Purpose 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
--- OUTSIDE RECORDS SUMMARY | 2018-11-07 19:12 | XMS REPORT ---
[...] Problem Hx of CABG Z95.1 Active Problem jail current use of 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 Problem Dependent on wheelchair Z99.3 Active Problem Coronary artery disease involving I25.709 Active coronary bypass graft of [place] heart with angina pectoris Problem History of right above knee Z89.611 Active amputation Problem Chronic pain disorder G89.4 Active Problem History of CVA (cerebrovascular Z86.73 Active accident) Problem Migraine without aura and without G43.009 Active status migrainosus, not intractable Problem Neuropathy G62.9 Active Medications No Known Medications Results No Known Results Summary Purpose [employer] Submission
--- OUTSIDE RECORDS SUMMARY | 2018-11-07 19:12 | XMS REPORT ---
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 Problem Chronic pain disorder G89.4 Active Problem History of CVA (cerebrovascular Z86.73 Active accident) Problem Migraine without aura and without G43.009 Active status migrainosus, not intractable Problem Neuropathy G62.9 Active Assessment Depression with anxiety F41.8 Active Assessment Coronary artery disease involving I25.709 Active coronary bypass graft of [place] heart with angina pectoris Assessment HTN (hypertension), benign I10 Active Assessment Chronic pain disorder G89.4 Active Problem Type 2 diabetes mellitus with other E11.69 Active specified complication Problem Type 2 diabetes mellitus with E11.65 Active hyperglycemia Assessment Type 2 diabetes mellitus with other E11.69 Active specified complication Medications Medication Code Code Instructions Start End Status Dosage System Date Date Metformin HCl [facility] 24367708739 500 MG Orally Active 1 tablet Twice a day with meals Pantoprazole [facility] 89144543499 40 MG Orally Active 1 tablet Sodium Once a day Klor-Con M10 [facility] 79203316942 10 MEQ Orally Active 1 tablet Twice a day with food Xanax [facility] 89237582667 0.5 MG Orally Inactive 1 tablet Twice a day Ranexa [facility] 27536470130 500 MG Orally Active 1 tablet Twice a day Duloxetine HCl [facility] 60616567596 30 MG Orally Active 1 capsule Twice a day Levetiracetam [facility] 67791783459 500 MG Orally Active 1 tablet Twice a day Clopidogrel [facility] 29006884284 75 MG Orally Active 1 tablet Bisulfate Once a day Corning [facility] 95927625890 7.5-325 MG Active 1 tablet Orally every 12 as needed hrs Aspirin [facility] 37252710378 81 MG Orally Active 1 tablet Once a day Lexapro [facility] 21539507084 20MG Orally Active 1 tablet Once a day Gabapentin [facility] 08571514276 800 MG Orally Active 1 tablet Three times a day Atorvastatin [facility] 96373967290 40 MG Orally Active 1 tablet Calcium Once a day Metoprolol [facility] 43261879402 25 MG Orally Active 1 tablet Tartrate Twice a day with food Insulin Aspart [facility] [address]-39 (70-30) 100 Active 60 units Prot & Aspart UNIT/ML BID Subcutaneous Atorvastatin [facility] 28026083148 40 MG Orally Active 1 tablet Calcium Once a day Clopidogrel [facility] 11137080578 75MG Orally Active 1 tablet Bisulfate Once a day Furosemide [facility] 90270210094 20 MG Orally Active 1 tablet Once a day Lexapro [facility] 89156339446 20 MG Orally Active 1 tablet Once a day Duloxetine HCl [facility] 27924585842 30 MG Orally Active 1 capsule Twice a day Furosemide [facility] 10634603830 20 MG Orally Active 1 tablet Once a day Results No Known Results Summary Purpose [employer] Submission
--- OUTSIDE RECORDS SUMMARY | 2018-11-07 19:12 | XMS REPORT ---
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
--- OUTSIDE RECORDS SUMMARY | 2018-11-07 19:12 | XMS REPORT ---
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 Medications Medication Code Code Instructions Start End Status Dosage System Date Date Metoprolol [facility] 76424665472 25 MG Orally Active 1 tablet Tartrate Twice a day with food Pantoprazole [facility] 00877577016 40 MG Orally Active 1 tablet Sodium Once a day Gabapentin [facility] 14281895628 800 MG Orally Active 1 tablet Three times a day Duloxetine HCl [facility] 22810790995 30 MG Orally Active 1 capsule Twice a day Aspirin [facility] 53239818659 81 MG Orally Active 1 tablet Once a day Insulin Aspart [facility] [address]-55 (70-30) 100 Active 60 units Prot & Aspart UNIT/ML BID Subcutaneous Ranexa [facility] 61200482730 500 MG Orally Active 1 tablet Twice a day Levetiracetam [facility] 54042451787 500 MG Orally Active 1 tablet Twice a day Lexapro [facility] 38075830381 20 MG Orally Active 1 tablet Once a day Xanax [facility] 67885820201 0.5 MG Orally Active 1 tablet Twice a day Clopidogrel [facility] 78467544045 75 MG Orally Active 1 tablet Bisulfate Once a day Klor-Con M10 [facility] 51031730807 10 MEQ Orally Active 1 tablet Twice a day with food Furosemide [facility] 71972635242 20 MG Orally Active 1 tablet Once a day Metformin HCl [facility] 69813088675 500 MG Orally Active 1 tablet Twice a day with meals Atorvastatin [facility] 30549439111 40 MG Orally Active 1 tablet Calcium Once a day Results No Known Results Summary Purpose [employer] Submission
[2018-11-07] MEDS ORDERED: MEPERIDINE HCL 25 MG/0.5 ML ONE ×2 (19:51→21:40)
[2018-11-07 20:02] LABS: Absolute Lymphocytes (CBC) 1.9 K/uL (0.7-4.9); Absolute Monocytes 0.5 K/uL (0.1-1.3); Absolute Neutrophil 6.4 K/uL (1.8-8.0); Basophils % 1.1 % (0-1.3); Eosinophils % 3.6 % (0-4.4); Hematocrit 44.8 % (36.0-45.0); Lymphocytes % 20.4 % (15.3-44.8); MPV 8.7 fL (7.6-11.3); Monocytes % 5.4 % (3.3-12.3)
--- NOTE | 2018-11-07 20:32 | RAD REPORT ---
EXAM DESCRIPTION: CT - Stone Protocol - 11/07/2018 8:18 pm CLINICAL HISTORY: Abdominal pain, left flank pain COMPARISON: CT stone August 2018 TECHNIQUE: Axial 5 mm thick images were obtained without oral or IV contrast. The [id number] span s the entirety of the system including uppermost abdomen and lung bases. All CT scans are performed using dose optimization technique as appropriate and may include automated exposure control or mA/KV adjustment according to patient size. FINDINGS: No hydronephrosis is present and no obstructing ureteral calculi. Bilateral nonobstructing 2-4 mm renal calculi are present with size, number and positioning stable from August comparison. No suspicious renal masses. Isodense masses and pyelonephritis are not excluded on a stone protocol CT s can. No urinary bladder suspicious finding. No significant adrenal finding. Imaged portions of the liver, spleen and pancreas show no suspicious findings on non-contrast imaging . No gallbladder or biliary tree abnormality identified. No suspicious bowel findings. Uterus and ovaries show no suspicious findings. No hernia, mass or bulky lymphadenopathy noted. No free air, free fluid or inflammatory stranding. No significant bony abnormality. IMPRESSION: No hydronephrosis, obstructing calculus or acute finding identifiable. Bilateral nonobstructing renal calculi similar to August 2018. Isodense masses and pyelonephritis are not excluded on stone protocol technique.
[2018-11-07 20:34] LABS: Bilirubin Direct 0.1 mg/dL (0-0.2); Bilirubin Total 0.3 mg/dL (0.2-1.0); Potassium 3.8 mmol/L (3.5-5.1); Protein, Total 7.4 g/dL (6.4-8.2)
[2018-11-07] MEDS ORDERED: ONDANSETRON 4 MG/2 ML VIAL ONE (20:52)
--- NOTE | 2018-11-07 21:22 | EDPHYS ---
Physician Documentation [facility] Name: Karen Shah Age: 48 yrs Sex: Female : 1970 Arrival Date: 11/07/2018 Time: 19:14 Bed 25 Private MD: ED Physician Leopoldo Nixon HPI: 11/07 20:04 This 48 yrs old Female presents to ER via Wheelchair with complaints of flank rn pain. 20:04 The patient complains of pain in the left low back. The pain does not radiate. Onset: rn The symptoms/episode began/occurred 3 day(s) ago. Modifying factors: The symptoms are alleviated by remaining still, the symptoms are aggravated by movement, palpation/percussion. Severity of pain: At its worst the pain was moderate in the emergency department the pain is unchanged. The patient has not experienced similar symptoms in the past. Reports left lower back pain, began 3 days ago, no radiation, no trauma, no urinary symptoms, no fever. Hurts to touch and lay on that side. NO abd pain. NO chest pain.Reports glucose chronically in 300s despite insulin, no acute changes.. 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 - Social history:: Smoking status: Patient/guardian denies using tobacco. - Ebola Screening: : Patient negative for fever greater than or equal to 101.5 degrees Fahrenheit, and additional compatible Ebola Virus Disease symptoms Patient denies exposure to infectious person Patient denies travel to an Ebola-affected area in the 21 days before illness onset No symptoms or risks identified at this time. - Family history:: not pertinent. - Hospitalizations: : No recent hospitalization is reported. ROS: 20:04 Constitutional: Negative for fever, chills, and weight loss, Eyes: Negative for injury, rn pain, redness, and discharge, Neck: Negative for injury, pain, and swelling, Cardiovascular: Negative for chest pain, palpitations, and edema, Respiratory: Negative for shortness of breath, cough, wheezing, and pleuritic chest pain, Abdomen/GI: Negative for abdominal pain, nausea, vomiting, diarrhea, and constipation, Back: + left lower back pain MS/Extremity: Negative for injury and deformity, Skin: Negative for injury, rash, and discoloration, Neuro: Negative for headache, weakness, numbness, tingling, and seizure. Exam: 20:04 Constitutional: This is a well developed, well nourished patient who is awake, alert, rn holding left lower back, sitting upright Head/Face: Normocephalic, atraumatic. ENT: MMM Cardiovascular: Regular rate and rhythm. No pulse deficits. Respiratory: No increased work of breathing, no retractions or nasal flaring. Speaking full sentences Abdomen/GI: soft, mild LLQ tenderness, no rebound or masses Back: No spinal tenderness. No costovertebral tenderness. + tenderness to palpation left lower back over musculature. Skin: Warm, dry with normal turgor. Normal color with no rashes, no lesions, and no evidence of cellulitis. MS/ Extremity: + right AKA, LLE normal without swelling adn distal pulses intact. Neuro: Awake and alert, GCS 15, oriented to person, place, time, and situation. Cranial nerves II-XII grossly intact. Vital Signs: 19:26 BP 161 / 84; Pulse 92; Resp 16; Pulse Ox 99% ; Weight 84.37 kg; Height 5 ft. 4 in. ls4 (162.56 cm); Pain 9/10; 20:30 BP 148 / 96; Pulse 82; Resp 16; Pulse Ox 99% on R/A; Pain 6/10; ls4 21:21 BP 144 / 92; Pulse 79; Resp 16; Pulse Ox 99% on R/A; Pain 4/10; ls4 21:30 BP 154 / 98; Pulse 89; Resp 16; Temp 98.4; Pulse Ox 99% on R/A; Pain 3/10; ls4 19:26 Body Mass Index 31.93 (84.37 kg, 162.56 cm) ls4 MDM: 19:27 Patient medically screened. rn 21:19 Differential diagnosis: UTI, muscle spasm. Data reviewed: vital signs, nurses notes, wilderness guide test result(s), radiologic studies, CT scan, and as a result, I will discharge patient. Counseling: I had a detailed discussion with the patient and/or guardian regarding: the historical points, exam findings, and any diagnostic results supporting the discharge/admit diagnosis, lab results, radiology results, the need for outpatient follow up, to return to the emergency department if symptoms worsen or persist or if there are any questions or concerns that arise at home. Response to treatment: the patient's symptoms have mildly improved after treatment, and as a result, I will discharge patient. Special discussion: I discussed with the patient/guardian in detail that at this point there is no indication for admission to the hospital. It is understood, however, that if the symptoms persist or worsen the patient needs to return immediately for re-evaluation. ED course: CT and bloodwork without acute findings, glucose 400 without AG or acidosis, on insulin and states glucose "never below 300", will dc home with abx and pcp f/u. . 11/07 19:33 Order name: Basic Metabolic Panel 11/07 19:33 Order name: CBC with Diff 11/07 19:33 Order name: Hepatic Function 11/07 19:33 Order name: Lipase; Complete Time: 20:49 11/07 19:33 Order name: Urine Microscopic Only 11/07 19:33 Order name: Basic Metabolic Panel; Complete Time: 20:49 EDMN 11/07 19:33 Order name: CT Stone Protocol; Complete Time: 20:49 11/07 19:33 Order name: CBC with Automated Diff; Complete Time: 20:49 [facility] 11/07 19:33 Order name: Liver (Hepatic) Function; Complete Time: 20:49 [facility] 11/07 21:22 Order name: Urine Dipstick--Ancillary (enter results) 2 11/07 21:32 Order name: Urine Culture [facility] 11/07 19:33 Order name: IV Saline Lock; Complete Time: 19:59 11/07 19:33 Order name: Labs collected and sent; Complete Time: 19:59 11/07 19:33 Order name: EKG - Nurse/Tech; Complete Time: 20:02 rn 11/07 19:33 Order name: EKG; Complete Time: 19:34 rn 11/07 19:33 Order name: Urine Dipstick-Ancillary (obtain specimen); Complete Time: 21:14 rn Administered Medications: 19:50 Drug: Demerol 25 mg Route: IVP; Site: left wrist; ls4 20:10 Follow up: Response: No adverse reaction; Marked relief of symptoms ls4 20:50 Drug: Zofran 4 mg Route: IVP; Site: right wrist; ls4 21:17 Follow up: Response: No adverse reaction; Marked relief of symptoms ls4 21:25 Drug: Demerol 25 mg Route: IVP; Site: right wrist; ls4 21:25 Drug: Macrobid 100 mg Route: PO; ls4 Disposition: 11/07/18 21:22 Discharged to Home. Impression: Low back pain, Urinary tract infection, site not specified, Muscle spasm of back. - Condition is Stable. - Discharge Instructions: Back Pain, Adult, Muscle Cramps and Spasms, Urinary Tract Infection, Adult. - Prescriptions for Cyclobenzaprine 10 mg Oral Tablet - take 1 tablet by ORAL route every 8 hours As needed; 20 tablet. Macrobid 100 mg Oral Capsule - take 1 capsule by ORAL route every 12 hours for 7 days; 14 capsule. - Medication Reconciliation Form, Thank You Letter, Antibiotic Education, Prescription Opioid Use form. - Follow up: Private Physician; When: As needed; Reason: Recheck today's complaints, Re-evaluation by your physician. - Problem is new. - Symptoms have improved. Signatures: Dispatcher [employer] EDLeopoldo Kaur MD MD rn Stewart, Lisa, RN RN ls4 Corrections: (The following items were deleted from the chart) 21:48 21:22 11/07/2018 21:22 Discharged to Home. Impression: Low back pain; Urinary tract ls4 infection, site not specified; Muscle spasm of back. Condition is Stable. Forms are Medication Reconciliation Form, Thank You Letter, Antibiotic Education, Prescription Opioid Use. Follow up: Private Physician; When: As needed; Reason: Recheck today's complaints, Re-evaluation by your physician. Problem is new. Symptoms have improved. rn
--- NOTE | 2018-11-07 21:22 | ER ---
Nurse's Notes [facility] Name: Karen Shah Age: 48 yrs Sex: Female : 1970 Arrival Date: 11/07/2018 Time: 19:14 Bed 25 Private MD: Diagnosis: Low back pain;Urinary tract infection, site not specified;Muscle spasm of back Presentation: 11/07 19:20 Presenting complaint: Patient states: pain in back for a few days. both flanks. worse ls4 than usual but similar to UTIs. been treated 2 x in last month or so. Transition of care: patient was not received from another setting of care. Onset of symptoms was November 05, 2018. Risk Assessment: Do you want to hurt yourself or someone else? Patient reports no desire to harm self or others. Initial Sepsis Screen: Does the patient meet any 2 criteria? No. Patient's initial sepsis screen is negative. Does the patient have a suspected source of infection? Yes: Dysuria/Frequency/Urgency/UTI. Care prior to arrival: None. 19:20 Method Of Arrival: Wheelchair ls4 19:20 Acuity: ARIEL 3 ls4 Triage Assessment: 19:26 General: Appears uncomfortable, Behavior is calm, cooperative. Pain: Complains of pain ls4 in left low back and right low back Pain currently is 9 out of 10 on a pain scale. 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 - Social history:: Smoking status: Patient/guardian denies using tobacco. - Ebola Screening: : Patient negative for fever greater than or equal to 101.5 degrees Fahrenheit, and additional compatible Ebola Virus Disease symptoms Patient denies exposure to infectious person Patient denies travel to an Ebola-affected area in the 21 days before illness onset No symptoms or risks identified at this time. - Family history:: not pertinent. - Hospitalizations: : No recent hospitalization is reported. Screenin:30 Abuse screen: Denies threats or abuse. Denies injuries from another. Nutritional ls4 screening: No deficits noted. Tuberculosis screening: No symptoms or risk factors identified. Fall Risk No fall in past 12 months (0 pts). Secondary diagnosis (15 points) impaired mobility, IV access (20 points). Ambulatory Aid- None/Bed Rest/Nurse Assist (0 pts). Gait- Normal/Bed Rest/Wheelchair (0 pts) Mental Status- Oriented to own ability (0 pts). Total Mccall Fall Scale indicates Low Risk Score (25-44 pts). Fall prevention measures have been instituted. Side Rails Up X 2 Placed close to Nursing Station Frequent Obs/Assesments occuring Family Present and informed to notify staff if they need to leave bedside As available Patient and Family Educated on Fall Prevention Program and strategies. Assessment: 19:28 General:. Neuro: Level of Consciousness is awake, alert, obeys commands, Oriented to ls4 person, place, time, situation. Respiratory: Respiratory effort is even, unlabored, Respiratory pattern is regular. GI: Abdomen is non-distended. : No signs and/or symptoms were reported regarding the genitourinary system. Vital Signs: 19:26 BP 161 / 84; Pulse 92; Resp 16; Pulse Ox 99% ; Weight 84.37 kg; Height 5 ft. 4 in. ls4 (162.56 cm); Pain 9/10; 20:30 BP 148 / 96; Pulse 82; Resp 16; Pulse Ox 99% on R/A; Pain 6/10; ls4 21:21 BP 144 / 92; Pulse 79; Resp 16; Pulse Ox 99% on R/A; Pain 4/10; ls4 21:30 BP 154 / 98; Pulse 89; Resp 16; Temp 98.4; Pulse Ox 99% on R/A; Pain 3/10; ls4 19:26 Body Mass Index 31.93 (84.37 kg, 162.56 cm) ls4 ED Course: 19:14 Patient arrived in ED. ds1 19:20 Roshni Vivar, RN is Primary Nurse. ls4 19:23 Triage completed. ls4 19:27 Leopoldo Nixon MD is Attending Physician. rn 19:30 Patient has correct armband on for positive identification. Fall risk band placed. ls4 Placed in gown. Bed in low position. Call light in reach. Side rails up X 1. Warm blanket given. Verbal reassurance given. 19:30 No provider procedures requiring assistance completed. ls4 19:33 Arm band placed on. ls4 19:42 Radiology exam delayed due to test not completed at this time. vm2 19:59 Basic Metabolic Panel Sent. ls4 19:59 CBC with Diff Sent. ls4 19:59 Hepatic Function Sent. ls4 20:04 Initial lab(s) drawn, by me, sent to lab. EKG done, by ED staff, reviewed by Leopoldo Nixon MD. Inserted saline lock: 24 gauge in right wrist, using aseptic technique. Blood collected. 20:18 CT Stone Protocol In Process Unspecified. EDMS 20:34 Notified ED physician of a critical lab result(s). glucose of 441. Administered Medications: 19:50 Drug: Demerol 25 mg Route: IVP; Site: left wrist; ls4 20:10 Follow up: Response: No adverse reaction; Marked relief of symptoms ls4 20:50 Drug: Zofran 4 mg Route: IVP; Site: right wrist; ls4 21:17 Follow up: Response: No adverse reaction; Marked relief of symptoms ls4 21:25 Drug: Demerol 25 mg Route: IVP; Site: right wrist; ls4 21:25 Drug: Macrobid 100 mg Route: PO; ls4 Outcome: 21:22 Discharge ordered by . rn 21:48 Patient left the ED. ls4 Signatures: Dispatcher [employer] EDMS Windy Ness RN RN fc Sanford, Demi ds1 Leopoldo Nixon MD MD rn McGuire, Victoria vm2 Roshni Vivar RN RN ls4
[2018-11-07 21:29] LABS: Urine Blood NEGATIVE (NEG); Urine Glucose 2+ (NEG); Urine Protein NEGATIVE (NEG); Urine pH 6.5 (5.0-7.0)
[2018-11-07 21:30] LABS: Urine Bacteria >50 /HPF (<20); Urine Culture Reflex Order REFLEXED; Urine RBC <5 /HPF (NONE SEEN)
[2018-11-07] MEDS ORDERED: NITROFURAN MACRO 100 MG CAP PO ONE (21:41)
[2018-11-07 22:47] VITALS: O2SAT 99
[2018-11-07 22:51] VITALS: BP 154/98; TEMP 98.4
--- NOTE | 2018-11-08 06:56 | EKG ---
Test Date: 2018-11-07 Test Time: 20:05:16 Ethics Instructor: LT MEASUREMENT RESULTS: Intervals: Rate: 94 OR: 154 QRSD: 82 QT: 362 QTc: 452 [place]: P: 46 OR: 154 QRS: -10 T: 28 INTERPRETIVE STATEMENTS: Normal sinus rhythm Moderate voltage criteria for LVH, may be normal variant Possible Inferior infarct, age undetermined Anterior infarct, age undetermined Abnormal ECG Compared to ECG 06/09/2018 00:11:19 Left ventricular hypertrophy now present Sinus tachycardia no longer present Myocardial infarct finding still present Electronically Signed On 11-08-18 06:55:31 CDT by Julio Montemayor
== END 2018-11-07 21:48 | disposition home or self-care (01) ==
LOC: ER 19:08
DX: N39.0 Urinary tract infection, site not specified (principal); M62.830 Muscle spasm of back; I10 Essential (primary) hypertension; E11.9 Type 2 diabetes mellitus without complications; E78.00 Pure hypercholesterolemia, unspecified; I25.2 Old myocardial infarction; Z88.5 Allergy status to narcotic agent
CPT/HCPCS: 87088; 85025; 87086; 80048; 36415; 80076; 83690; 76377; 74176; J2175 ×2; J2405; 81003; 81015; 93005; 99284

== ENCOUNTER 2018-12-29 16:18 | Inpatient (IN) | payer OTHER ==
--- OUTSIDE RECORDS SUMMARY | 2018-12-29 16:20 | XMS REPORT ---
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
--- OUTSIDE RECORDS SUMMARY | 2018-12-29 16:20 | XMS REPORT ---
:1970 [facility] [address] [place] [address] Care Team Providers Name Role Phone Unavailable Unavailable Unavailable Problems This patient has no known problems. Allergies, Adverse Reactions, Alerts This patient has no known allergies or adverse reactions. Medications This patient has no known medications.
--- OUTSIDE RECORDS SUMMARY | 2018-12-29 16:20 | XMS REPORT ---
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 Problem HTN (hypertension), benign I10 Active Problem Seizures R56.9 Active Assessment HTN (hypertension), benign I10 Active Assessment Chronic pain disorder G89.4 Active Assessment Neuropathy G62.9 Active Assessment Seizures R56.9 Active Assessment Type 2 diabetes mellitus with other E11.69 Active specified complication Problem Coronary artery disease involving I25.709 Active 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 Assessment Depression with anxiety F41.8 Active Assessment Coronary artery disease involving I25.709 Active 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 Medications Medication Code Code Instructions Start End Status Dosage System Date Date Atorvastatin [facility] 11241634253 40 MG Orally Active 1 tablet Calcium Once a day Lexapro [facility] 52631159077 20 MG Orally Active 1 tablet Once a day Levetiracetam [facility] 69366357119 500 MG Orally Active 1 tablet Twice a day Metoprolol [facility] 83584332781 25 MG Orally Active 1 tablet Tartrate Twice a day with food Ranexa [facility] 75047809021 500 MG Orally Active 1 tablet Twice a day Klor-Con M10 [facility] 69692074707 10 MEQ Orally Active 1 tablet Twice a day with food Insulin Aspart [facility] [address]-84 (70-30) 100 Active 60 units Prot & Aspart UNIT/ML BID Subcutaneous Metformin HCl [facility] 62285907281 500 MG Orally Active 1 tablet Twice a day with meals Aspirin [facility] 65387731896 81 MG Orally Active 1 tablet Once a day Gabapentin [facility] 00380004014 800 MG Orally Active 1 tablet Three times a day Furosemide [facility] 15495453074 20 MG Orally Active 1 tablet Once a day Pantoprazole [facility] 07462556663 40 MG Orally Active 1 tablet Sodium Once a day Duloxetine HCl [facility] 25077790575 30 MG Orally Active 1 capsule Twice a day Xanax [facility] 17511531274 0.5 MG Orally Active 1 tablet Twice a day Clopidogrel [facility] 66893466101 75 MG Orally Active 1 tablet Bisulfate Once a day Results No Known Results Summary Purpose eClinicalWorks Submission
--- OUTSIDE RECORDS SUMMARY | 2018-12-29 16:20 | XMS REPORT ---
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 Medications Medication Code Code Instructions Start End Status Dosage System Date Date Metoprolol [facility] 91029796445 25 MG Orally Active 1 tablet Tartrate Twice a day with food Pantoprazole [facility] 24641894108 40 MG Orally Active 1 tablet Sodium Once a day Gabapentin [facility] 48833408922 800 MG Orally Active 1 tablet Three times a day Duloxetine HCl [facility] 33295956503 30 MG Orally Active 1 capsule Twice a day Aspirin [facility] 77183337643 81 MG Orally Active 1 tablet Once a day Insulin Aspart [facility] [address]-00 (70-30) 100 Active 60 units Prot & Aspart UNIT/ML BID Subcutaneous Ranexa [facility] 54393512010 500 MG Orally Active 1 tablet Twice a day Levetiracetam [facility] 44576348431 500 MG Orally Active 1 tablet Twice a day Lexapro [facility] 64196901742 20 MG Orally Active 1 tablet Once a day Xanax [facility] 88613921677 0.5 MG Orally Active 1 tablet Twice a day Clopidogrel [facility] 76084268507 75 MG Orally Active 1 tablet Bisulfate Once a day Klor-Con M10 [facility] 95378862105 10 MEQ Orally Active 1 tablet Twice a day with food Furosemide [facility] 13009606888 20 MG Orally Active 1 tablet Once a day Metformin HCl [facility] 88644446413 500 MG Orally Active 1 tablet Twice a day with meals Atorvastatin [facility] 77060424531 40 MG Orally Active 1 tablet Calcium Once a day Results No Known Results Summary Purpose eClinicalWorks Submission
--- OUTSIDE RECORDS SUMMARY | 2018-12-29 16:21 | XMS REPORT | Summary of Care ---
:1970 Author Organization [facility] - Health Address [address] [place] [address] Care Team Providers Name Role Phone Fabby Meléndez Unavailable Dada Horan Primary Care Provider Encounter Details Date Type Department Care Team Description 12/20/2018 Orders Only [facility] Doctor Unassigned, No [address] [facility] [place] [address] [address] [place] [address] Allergies Active Allergy Reactions Severity Noted Date Comments Ketorolac Tromethamine Hives 12/15/2016 Tramadol Hives 12/15/2016 documented as of this encounter (statuses as of 12/24/2018) Medications Medication Sig Dispensed Refills Start Date End Date Status POTASSIUM CHLORIDE Take 1 tablet by 0 Active (KLOR-CON 10 ORAL) mouth daily. pantoprazole 40 mg EC Take 40 mg by 0 Active tablet mouth daily. aspirin (ASPIRIN LOW Take 81 mg by 0 Active DOSE) 81 mg EC tablet mouth daily. Insulin Syringe-Needle Use as directed 180 Syringe 3 08/25/2017 Active U-100 (INSULIN SYRINGE) 1 mL 30 gauge x 16 SyrgIndications: Diabetes 1.5, managed as type 1 HYDROcodone-acetaminop Take 1 tablet by 20 tablet 0 02/26/2018 Active hen 7.5-325 mg per mouth 2 (two) tablet times daily. gabapentin 800 mg Take 1 tablet by 270 tablet 2 08/31/2018 Active tabletIndications: mouth 3 (three) Neuropathy times daily. metFORMIN 500 mg Take 2 tablets 360 tablet 3 08/31/2018 Active tablet by mouth 2 (two) times daily with meals. You can do two pills in the morning and one in the evening. insulin NPH and inject 80 Units 6 Vial 3 08/31/2018 Active regular human 70-30 under the skin 2 (NOVOLIN 70/30 U-100 (two) times INSULIN) 100 unit/mL daily before (70-30) injection breakfast and dinner. Nitrofurantoin&Nit. Take 1 capsule 30 capsule 2 09/20/2018 Active Macrocryst (MACROBID) by mouth daily. 100 mg capsuleIndications: Recurrent UTI escitalopram oxalate Take 1 tablet by 30 tablet 5 09/25/2018 Active (LEXAPRO) 10 mg mouth daily. tabletIndications: Anxiety and depression escitalopram oxalate 2 09/01/2018 Active 20 mg tablet levETIRAcetam 500 mg 2 09/01/2018 Active tablet levoFLOXacin 500 mg 0 09/18/2018 Active tablet sulfamethoxazole-trime 0 09/18/2018 Active thoprim 800-160 mg per tablet miSOPROStol 200 mcg Take one tablet 2 tablet 0 10/05/2018 Active tabletIndications: the night before Dysmenorrhea procedure, take one table the morning of procedure. phenazopyridine 200 mg Take 1 tablet by 9 tablet 0 10/28/2018 Active tabletIndications: mouth 3 (three) Recurrent UTI times daily. atorvastatin (LIPITOR) Take 1 tablet by 90 tablet 1 11/30/2018 Active 40 mg mouth at tabletIndications: bedtime. High cholesterol DULoxetine 30 mg Take 1 capsule 90 capsule 1 11/30/2018 Active capsuleIndications: by mouth daily. Anxiety and depression clopidogrel (PLAVIX) Take 1 tablet by 90 tablet 1 11/30/2018 Active 75 mg mouth daily. tabletIndications: H/O right coronary artery stent placement furosemide (LASIX) 20 Take 1 tablet by 90 tablet 1 11/30/2018 Active mg tabletIndications: mouth daily. Congestive heart failure, unspecified HF chronicity, unspecified heart failure type isosorbide mononitrate Take 1 tablet by 90 tablet 1 11/30/2018 Active 30 mg 24 hr mouth daily. tabletIndications: H/O right coronary artery stent placement metoprolol tartrate 25 Take 1 tablet by 90 tablet 1 11/30/2018 Active mg tabletIndications: mouth daily. Essential hypertension fluconazole (DIFLUCAN) Take 1 tablet by 6 tablet 1 11/30/2018 Active 150 mg mouth tabletIndications: SEE-INSTRUCTIONS Recurrent UTI . 1 PO weekly/PRN yeast infection documented as of this encounter (statuses as of 12/24/2018) Active Problems Problem Noted Date GARY (stress urinary incontinence, female) 02/02/2018 Overview: Added automatically from request for surgery [id number] GERD (gastroesophageal reflux disease) DM (diabetes mellitus) Depression CVA (cerebral vascular accident) CHF (congestive heart failure) Anxiety Angina pectoris H/O right coronary artery stent placement High cholesterol HTN (hypertension) Hx of CABG Migraines Seizures Unilateral AKA, right documented as of this encounter (statuses as of 12/24/2018) Social History Tobacco Use Types Packs/Day Years Used Date Current Every Day Smoker Cigarettes 0.75 Smokeless Tobacco: Never Used Comments: quit 2012 Alcohol Use Drinks/Week oz/Week Comments No Sex Assigned at Date Recorded Not on file Job Start Date Occupation Industry Not on file Not on file Not on file Travel History Travel Start Travel End No recent travel history available. documented as of this encounter Last Filed Vital Signs Not on filedocumented in this encounter Plan of Treatment Date Type Specialty Care Team Description 01/04/2019 Office Visit Endocrinology Diabetes & Anatoly Flores [facility]abolism [address] [place] [address] [facility] [address] [place], [place] [address] 02/04/2019 Office Visit Cardiology Lily Jenkins MD [address] [facility] [address] [place], [place] [address] 03/25/2019 Office Visit Urology Rosalva Patel FNP [address] [place] [address] [phone] 03/26/2019 Office Visit Family Medicine Dev Zavala MD [address] [place] [address] [place] [phone] 10/07/2019 Office Visit Obstetrics & Gynecology Muna Weeks PA-C [address] [place] [address] [address] [place] [address] [phone] Health Maintenance Due Date Last Done Comments PNEUMOCOCCAL 0-64 YEARS COMBINED 1978 SERIES (1 of 1 - PPSV23) EYE EXAM 1982 LDL-C 1982 DTaP,Tdap,and Td Vaccines (1 - 1991 Tdap) MAMMOGRAM 11/06/2018 11/06/2017 INFLUENZA VACCINE 01/27/2019 HgA1C 03/02/2019 08/31/2018, 04/27/2018, 12/01/2017, Additional history exists FOOT EXAM 09/01/2019 08/31/2018, 08/31/2018, 04/27/2018, Additional history exists URINE MICROALBUMIN 09/01/2019 08/31/2018, 05/19/2017 CREATININE (SERUM) 10/29/2019 10/28/2018, 08/31/2018, 12/15/2016 PAP SMEAR 09/25/2020 09/25/2017 documented as of this encounter Procedures Procedure Name Priority Date/Time Associated Diagnosis Comments REFERRAL- Routine 12/20/2018 12:01 AM CDT REQUEST/RESPONSE documented in this encounter Results Not on filedocumented in this encounter Insurance Payer Benefit Plan / Subscriber ID Effective Dates Phone Address Type Group MEDICARE MEDICARE PART xxxxxxxxxxx 2017-Justin [phone] Medicare [place] [address] [id number] [place] [id number] documented as of this encounter
--- OUTSIDE RECORDS SUMMARY | 2018-12-29 16:21 | XMS REPORT ---
[...] Problem Hx of CABG Z95.1 Active Problem snf current use of 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 Problem Dependent on wheelchair Z99.3 Active Problem Coronary artery disease involving I25.709 Active coronary bypass graft of [place] heart with angina pectoris Problem History of right above knee Z89.611 Active amputation Problem Chronic pain disorder G89.4 Active Problem History of CVA (cerebrovascular Z86.73 Active accident) Problem Migraine without aura and without G43.009 Active status migrainosus, not intractable Problem Neuropathy G62.9 Active Medications No Known Medications Results No Known Results Summary Purpose GeodruidinicalCiRBA Submission
--- OUTSIDE RECORDS SUMMARY | 2018-12-29 16:21 | XMS REPORT ---
[...] involving I25.709 Active coronary bypass graft of [place] heart with angina pectoris Problem History of right above knee Z89.611 Active amputation Problem Chronic pain disorder G89.4 Active Problem History of CVA (cerebrovascular Z86.73 Active accident) Problem Migraine without aura and without G43.009 Active status migrainosus, not intractable Problem Neuropathy G62.9 Active Medications No Known Medications Results No Known Results Summary Purpose Human Performance Integrated SystemsinicalGMEX Submission
--- OUTSIDE RECORDS SUMMARY | 2018-12-29 16:21 | XMS REPORT ---
[...] Assessment Hx of CABG Z95.1 Active Problem long-term current use of 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 Assessment Migraine without aura and without G43.009 Active status migrainosus, not intractable Problem Depression with anxiety F41.8 Active Problem HTN (hypertension), benign I10 Active Problem Seizures R56.9 Active Problem Dependent on wheelchair Z99.3 Active Problem Coronary artery disease involving I25.709 Active coronary bypass graft of [place] heart with angina pectoris Assessment Seizures R56.9 Active Assessment Neuropathy G62.9 Active Problem History of right above knee Z89.611 Active amputation Assessment 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 of 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 Problem Chronic pain disorder G89.4 Active Problem History of CVA (cerebrovascular Z86.73 Active accident) Problem Migraine without aura and without G43.009 Active status migrainosus, not intractable Problem Neuropathy G62.9 Active Assessment Depression with anxiety F41.8 Active Assessment Coronary artery disease involving I25.709 Active coronary bypass graft of [place] heart with angina pectoris Assessment HTN (hypertension), benign I10 Active Assessment Chronic pain disorder G89.4 Active Problem Type 2 diabetes mellitus with other E11.69 Active specified complication Problem Type 2 diabetes mellitus with E11.65 Active hyperglycemia Assessment Type 2 diabetes mellitus with other E11.69 Active specified complication Medications Medication Code Code Instructions Start End Status Dosage System Date Date Metformin HCl [facility] 98293861931 500 MG Orally Active 1 tablet Twice a day with meals Pantoprazole [facility] 63955571263 40 MG Orally Active 1 tablet Sodium Once a day Klor-Con M10 [facility] 72165278145 10 MEQ Orally Active 1 tablet Twice a day with food Xanax [facility] 60494334690 0.5 MG Orally Inactive 1 tablet Twice a day Ranexa [facility] 74561992984 500 MG Orally Active 1 tablet Twice a day Duloxetine HCl [facility] 64139192315 30 MG Orally Active 1 capsule Twice a day Levetiracetam [facility] 86875805036 500 MG Orally Active 1 tablet Twice a day Clopidogrel [facility] 43397552685 75 MG Orally Active 1 tablet Bisulfate Once a day [place] [facility] 49436454532 7.5-325 MG Active 1 tablet Orally every 12 as needed hrs Aspirin [facility] 76014625408 81 MG Orally Active 1 tablet Once a day Lexapro [facility] 40830932131 20MG Orally Active 1 tablet Once a day Gabapentin [facility] 28584497941 800 MG Orally Active 1 tablet Three times a day Atorvastatin [facility] 50494022757 40 MG Orally Active 1 tablet Calcium Once a day Metoprolol [facility] 64169246687 25 MG Orally Active 1 tablet Tartrate Twice a day with food Insulin Aspart [facility] [address]-59 (70-30) 100 Active 60 units Prot & Aspart UNIT/ML BID Subcutaneous Atorvastatin [facility] 32632796373 40 MG Orally Active 1 tablet Calcium Once a day Clopidogrel [facility] 29213823681 75MG Orally Active 1 tablet Bisulfate Once a day Furosemide [facility] 71041551763 20 MG Orally Active 1 tablet Once a day Lexapro [facility] 00937159747 20 MG Orally Active 1 tablet Once a day Duloxetine HCl [facility] 31077954938 30 MG Orally Active 1 capsule Twice a day Furosemide [facility] 41033354324 20 MG Orally Active 1 tablet Once a day Results No Known Results Summary Purpose eClinicalWorks Submission
[2018-12-29] MEDS ORDERED: MEPERIDINE HCL 50 MG/ML AMP ONE (17:14)
[2018-12-29] MEDS ORDERED: CLINDAMYCIN HCL 150 MG CAP ONE (17:14)
[2018-12-29] MEDS ORDERED: ONDANSETRON 4 MG (ODT) TAB ONE (17:15)
[2018-12-29] MEDS ORDERED: CLINDAMYCIN 600MG/D5W 600 MG/50 ML BAG IV ONE (17:31)
[2018-12-29] MEDS ORDERED: NA CHLORIDE 0.9% 1,000 ML ONE (17:31)
[2018-12-29 17:39] LABS: Absolute Lymphocytes (CBC) 1.5 K/uL (0.7-4.9); Hematocrit 42.9 % (36.0-45.0); Lymphocytes % 19.8 % (15.3-44.8); MPV 9.2 fL (7.6-11.3); RBC Red Blood Cell Count 4.68 M/uL (3.86-4.86)
--- NOTE | 2018-12-29 18:01 | ER ---
Nurse's Notes [facility] Name: Karen Shah Age: 48 yrs Sex: Female : 1970 Arrival Date: 12/29/2018 Time: 16:21 Bed 26 Private MD: Diagnosis: Cutaneous abscess of other sites-Clitoral lakhani and mons pubic region;Diabetes mellitus due to underlying condition with hyperglycemia Presentation: 12/29 16:21 Presenting complaint: Patient states: i have this boil/ abscess on my vagina for 2 days hj now and its getting worse and its getting bigger and hard; denies fever, reports chills; reports chest pain;. Transition of care: patient was not received from another setting of care. Onset of symptoms was December 29, 2018. Risk Assessment: Do you want to hurt yourself or someone else? Patient reports no desire to harm self or others. Initial Sepsis Screen: Does the patient meet any 2 criteria? No. Patient's initial sepsis screen is negative. Does the patient have a suspected source of infection? No. Patient's initial sepsis screen is negative. Care prior to arrival: None. 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 - Social history:: Smoking status: Patient/guardian denies using tobacco. - Ebola Screening: : Patient negative for fever greater than or equal to 101.5 degrees Fahrenheit, and additional compatible Ebola Virus Disease symptoms Patient denies exposure to infectious person Patient denies travel to an Ebola-affected area in the 21 days before illness onset No symptoms or risks identified at this time. Screenin:00 Abuse screen: Denies threats or abuse. Denies injuries from another. Nutritional ca1 screening: No deficits noted. Tuberculosis screening: No symptoms or risk factors identified. Fall Risk Ambulatory Aid- None/Bed Rest/Nurse Assist (0 pts). Assessment: 17:00 General: Appears in no apparent distress. comfortable, Behavior is calm, cooperative, ca1 appropriate for age. Pain: Complains of pain in groin Pain does not radiate. Pain currently is 10 out of 10 on a pain scale. Quality of pain is described as pressure. Neuro: Level of Consciousness is awake, alert, obeys commands, Oriented to person, place, time, situation, Appropriate for age. Cardiovascular: Heart tones S1 S2 present Capillary refill < 3 seconds Patient's skin is warm and dry. Respiratory: Airway is patent Respiratory effort is even, unlabored, Respiratory pattern is regular, symmetrical, Breath sounds are clear bilaterally. GI: Abdomen is round non-distended, Bowel sounds present X 4 quads. Abd is soft and non tender X 4 quads. : Urine is clear. EENT: No deficits noted. No signs and/or symptoms were reported regarding the EENT system. Derm: Skin is intact, is healthy with good turgor, Skin is pink, warm \T\ dry. Musculoskeletal: Amputation of right leg. Circulation, motion, and sensation intact. Capillary refill < 3 seconds. 17:42 Reassessment: Patient appears in no apparent distress at this time. Patient and/or ca1 family updated on plan of care and expected duration. Pain level reassessed. Patient is alert, oriented x 3, equal unlabored respirations, skin warm/dry/pink. 18:44 Reassessment: Patient appears in no apparent distress at this time. Patient and/or ca1 family updated on plan of care and expected duration. Pain level reassessed. Patient is alert, oriented x 3, equal unlabored respirations, skin warm/dry/pink. 19:43 Reassessment: Patient appears in no apparent distress at this time. Patient and/or ca1 family updated on plan of care and expected duration. Pain level reassessed. Patient is alert, oriented x 3, equal unlabored respirations, skin warm/dry/pink. 19:50 Reassessment: Called for report. Nurse will call back. ca1 20:19 Reassessment: Patient appears in no apparent distress at this time. Patient is alert, ca1 oriented x 3, equal unlabored respirations, skin warm/dry/pink. Vital Signs: 16:23 BP 154 / 78; Pulse 102; Resp 18; Temp 98.1(O); Pulse Ox 98% on R/A; Weight 84.37 kg; hj Height 5 ft. 4 in. (162.56 cm); Pain 10/10; 17:42 BP 135 / 91; Pulse 100; Resp 15 S; Pulse Ox 96% on R/A; ca1 18:44 BP 130 / 97; Pulse 100; Resp 15 S; Pulse Ox 98% on R/A; ca1 19:43 BP 117 / 83; Pulse 99; Resp 17 S; Temp 97.8(A); Pulse Ox 97% on R/A; ca1 20:19 BP 113 / 82; Pulse 94; Resp 14 S; Pulse Ox 100% on R/A; ca1 16:23 Body Mass Index 31.93 (84.37 kg, 162.56 cm) hj ED Course: 16:21 Patient arrived in ED. hj 16:22 Triage completed. hj 16:23 Arm band placed on right wrist. hj 16:31 Jorge Chamberlain PA is PHCP. jr8 16:31 Leopoldo Nixon MD is Attending Physician. jr8 17:00 Patient has correct armband on for positive identification. Bed in low position. Call ca1 light in reach. Side rails up X2. Pulse ox on. NIBP on. Warm blanket given. 17:05 Barbie Vaca, RN is Primary Nurse. ca1 17:30 Inserted saline lock: 22 gauge in right antecubital area, using aseptic technique. ca1 Blood collected. 17:59 Steph Pagan MD is Hospitalizing Provider. jr8 18:38 Ultrasound completed. Patient tolerated well. Notified TELEGRAPH OFFICE MANAGER/ALVARADO zambrano. sg3 19:50 No provider procedures requiring assistance completed. Patient admitted, IV remains in ca1 place. Administered Medications: 17:08 Drug: Zofran 4 mg Route: PO; ca1 18:12 Follow up: Response: No adverse reaction; Nausea is decreased ca1 17:18 Not Given (Physician Discretion): Demerol 50 mg IM once jr8 17:19 Not Given (Physician Discretion): Clindamycin 300 mg PO once jr8 17:30 Drug: Demerol 25 mg Route: IVP; Site: right antecubital; ca1 18:12 Follow up: Response: No adverse reaction; Pain is decreased ca1 17:35 Drug: Clindamycin 600 mg Route: IVPB; Infused Over: 30 mins; Site: right antecubital; ca1 18:11 Follow up: Response: No adverse reaction; IV Status: Completed infusion ca1 17:56 Drug: NS 0.9% 1000 ml Route: IV; Rate: 1000 ml; Site: right antecubital; ca1 19:00 Follow up: IV Status: Completed infusion ca1 18:06 Drug: Insulin Regular Human 10 units {Co-Signature: antonietta (Angie Garduno RN).} Route: IVP; ca1 Site: right antecubital; 18:56 Follow up: Response: No adverse reaction; Blood sugar is lowered ca1 18:20 Drug: Demerol 25 mg Route: IVP; Site: right antecubital; ca1 19:47 Follow up: Response: No adverse reaction; Pain is decreased ca1 18:54 Drug: Insulin Regular Human 10 units {Co-Signature: iw (Dali Nieves RN).} Route: ca1 IVP; Site: right antecubital; 19:46 Follow up: Response: No adverse reaction; Blood sugar is lowered ca1 Point of Care Testing: Blood Glucose: 17:40 Blood Glucose: High (>450 mg/dL); ca1 18:44 Blood Glucose: 461 mg/dL; ca1 19:43 Blood Glucose: 383 mg/dL; ca1 Ranges: Outcome: 18:00 Decision to Hospitalize by Provider. tadeo 20:19 Admitted to Tele accompanied by nurse, via wheelchair, room 405, with chart, Report ca1 called to Nathanael Qiu RN 20:19 Condition: stable 20:19 Instructed on the need for admit. 20:37 Patient left the ED. ca1 Signatures: Jorge Chamberlain PA PA jr8 Naeem Giles RN RN Marietta Bourne 3 Barbie Vaca RN RN ca1 Angie Nieves RN iw
--- NOTE | 2018-12-29 18:01 | EDPHYS ---
Physician Documentation [facility] Name: Karen Shah Age: 48 yrs Sex: Female : 1970 Arrival Date: 12/29/2018 Time: 16:21 Bed 26 Private MD: ED Physician Leopoldo Nixon HPI: 12/29 18:00 This 48 yrs old Female presents to ER via Ambulatory with complaints of jr8 Abscess. 18:00 the patient presents with a swollen area of the pelvis. Description: The affected area jr8 is small, poorly defined, swollen, warm. Onset: The symptoms/episode began/occurred gradually, 2 day(s) ago. Possible cause(s): unknown. Associated signs and symptoms: The patient has no apparent associated signs or symptoms. Modifying factors: the symptoms are alleviated by nothing, the symptoms are aggravated by movement, walking, pressure, sitting, squeezing the lesion and expressing the contents, touching. Severity of symptoms: At their worst the symptoms were moderate, in the emergency department the symptoms are unchanged. The patient has not experienced similar symptoms in the past. The patient has not recently seen a physician. Patient stated that she has had abscesses in the past but never in this particular area. Patient points to clitoral region . 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 - Social history:: Smoking status: Patient/guardian denies using tobacco. - Ebola Screening: : Patient negative for fever greater than or equal to 101.5 degrees Fahrenheit, and additional compatible Ebola Virus Disease symptoms Patient denies exposure to infectious person Patient denies travel to an Ebola-affected area in the 21 days before illness onset No symptoms or risks identified at this time. ROS: 18:00 Eyes: Negative for injury, pain, redness, and discharge, ENT: Negative for injury, jr8 pain, and discharge, Neck: Negative for injury, pain, and swelling, Cardiovascular: Negative for chest pain, palpitations, and edema, Respiratory: Negative for shortness of breath, cough, wheezing, and pleuritic chest pain, Abdomen/GI: Negative for abdominal pain, nausea, vomiting, diarrhea, and constipation, Back: Negative for injury and pain, MS/Extremity: Negative for injury and deformity, Neuro: Negative for headache, weakness, numbness, tingling, and seizure. 18:00 Skin: Positive for abscess. Exam: 18:00 Eyes: Pupils equal round and reactive to light, extra-ocular motions intact. Lids and jr8 lashes normal. Conjunctiva and sclera are non-icteric and not injected. Cornea within normal limits. Periorbital areas with no swelling, redness, or edema. ENT: Nares patent. No nasal discharge, no septal abnormalities noted. Tympanic membranes are normal and external auditory canals are clear. Oropharynx with no redness, swelling, or masses, exudates, or evidence of obstruction, uvula midline. Mucous membranes moist. Neck: Trachea midline, no thyromegaly or masses palpated, and no cervical lymphadenopathy. Supple, full range of motion without nuchal rigidity, or vertebral point tenderness. No Meningismus. Cardiovascular: Regular rate and rhythm with a normal S1 and S2. No gallops, murmurs, or rubs. Normal PMI, no JVD. No pulse deficits. Respiratory: Lungs have equal breath sounds bilaterally, clear to auscultation and percussion. No rales, rhonchi or wheezes noted. No increased work of breathing, no retractions or nasal flaring. Abdomen/GI: Soft, non-tender, with normal bowel sounds. No distension or tympany. No guarding or rebound. No evidence of tenderness throughout. Back: No spinal tenderness. No costovertebral tenderness. Full range of motion. MS/ Extremity: Pulses equal, no cyanosis. Neurovascular intact. Full, normal range of motion. Neuro: Awake and alert, GCS 15, oriented to person, place, time, and situation. Cranial nerves II-XII grossly intact. Motor strength 5/5 in all extremities. Sensory grossly intact. Cerebellar exam normal. Normal gait. 18:00 Skin: abscess, that is small, of the pelvis, Moderate tenderness with swelling and palpated fluctuant mass noted at the 1 o'clock position near the clitoral lakhani extending into the mons pubic region . Vital Signs: 16:23 BP 154 / 78; Pulse 102; Resp 18; Temp 98.1(O); Pulse Ox 98% on R/A; Weight 84.37 kg; hj Height 5 ft. 4 in. (162.56 cm); Pain 10/10; 17:42 BP 135 / 91; Pulse 100; Resp 15 S; Pulse Ox 96% on R/A; ca1 18:44 BP 130 / 97; Pulse 100; Resp 15 S; Pulse Ox 98% on R/A; ca1 19:43 BP 117 / 83; Pulse 99; Resp 17 S; Temp 97.8(A); Pulse Ox 97% on R/A; ca1 20:19 BP 113 / 82; Pulse 94; Resp 14 S; Pulse Ox 100% on R/A; ca1 16:23 Body Mass Index 31.93 (84.37 kg, 162.56 cm) hj MDM: 16:31 Patient medically screened. jr8 17:58 Data reviewed: vital signs, nurses notes, lab test result(s), radiologic studies, jr8 ultrasound. Data interpreted: Pulse oximetry: on room air is 96 %. Interpretation: normal. Counseling: I had a detailed discussion with the patient and/or guardian regarding: the historical points, exam findings, and any diagnostic results supporting the discharge/admit diagnosis, lab results, radiology results, the need for further work-up and treatment in the hospital. Physician consultation: Steph Pagan MD was called at 17:59, was contacted at 17:59, regarding admission, to the medical/surgical unit. consult, patient's condition, and will see patient. 18:03 ED course: Dr. Head consulted and will see patient in hospital . jr8 12/29 17:17 Order name: CBC with Diff; Complete Time: 17:57 jr8 12/29 17:17 Order name: Basic Metabolic Panel; Complete Time: 18:05 jr8 12/29 17:31 Order name: Glucose, Ancillary Testing; Complete Time: 17:39 EDMS 12/29 18:26 Order name: Basic Metabolic Panel EDMS 12/29 18:26 Order name: Basic Metabolic Panel EDMS 12/29 18:26 Order name: CBC with Automated Diff EDMS 12/29 18:26 Order name: CBC with Automated Diff EDMS 12/29 18:26 Order name: Hemoglobin A1c EDMS 12/29 18:26 Order name: Hemoglobin A1c EDMS 12/29 18:26 Order name: Lipid Profile EDMS 12/29 18:26 Order name: Lipid Profile EDMS 12/29 18:26 Order name: Protime (+INR) EDMS 12/29 18:26 Order name: Protime (+INR) EDMS 12/29 18:26 Order name: PTT, Activated Partial Thromb EDMS 12/29 17:40 Order name: US Extrmty Nonvasular Limited 8 12/29 18:25 Order name: CONS Pharmacy Consult EDMS 12/29 18:25 Order name: CONS Pharmacy Consult EDMS 12/29 18:25 Order name: CONS Physician Consult EDMS 12/29 18:26 Order name: PTT, Activated Partial Thromb EDMS 12/29 18:46 Order name: Glucose, Ancillary Testing; Complete Time: 18:46 EDMS 12/29 19:11 Order name: US; Complete Time: 19:30 EDMS 12/29 17:15 Order name: D stick; Complete Time: 17:39 8 12/29 17:17 Order name: IV; Complete Time: 17:40 [facility] 12/29 18:26 Order name: NPO EDDC Administered Medications: 17:08 Drug: Zofran 4 mg Route: PO; ca1 18:12 Follow up: Response: No adverse reaction; Nausea is decreased ca1 17:18 Not Given (Physician Discretion): Demerol 50 mg IM once 17:19 Not Given (Physician Discretion): Clindamycin 300 mg PO once jr8 17:30 Drug: Demerol 25 mg Route: IVP; Site: right antecubital; ca1 18:12 Follow up: Response: No adverse reaction; Pain is decreased ca1 17:35 Drug: Clindamycin 600 mg Route: IVPB; Infused Over: 30 mins; Site: right antecubital; ca1 18:11 Follow up: Response: No adverse reaction; IV Status: Completed infusion ca1 17:56 Drug: NS 0.9% 1000 ml Route: IV; Rate: 1000 ml; Site: right antecubital; ca1 19:00 Follow up: IV Status: Completed infusion ca1 18:06 Drug: Insulin Regular Human 10 units {Co-Signature: antonietta (Angie Garduno RN).} Route: IVP; ca1 Site: right antecubital; 18:56 Follow up: Response: No adverse reaction; Blood sugar is lowered ca1 18:20 Drug: Demerol 25 mg Route: IVP; Site: right antecubital; ca1 19:47 Follow up: Response: No adverse reaction; Pain is decreased ca1 18:54 Drug: Insulin Regular Human 10 units {Co-Signature: iw (Dali Nieves RN).} Route: ca1 IVP; Site: right antecubital; 19:46 Follow up: Response: No adverse reaction; Blood sugar is lowered ca1 Point of Care Testing: Blood Glucose: 17:40 Blood Glucose: High (>450 mg/dL); ca1 18:44 Blood Glucose: 461 mg/dL; ca1 19:43 Blood Glucose: 383 mg/dL; ca1 Ranges: Critical Glucose Levels:Adult <50 mg/dl or >400 mg/dl <40 mg/dl or >180 mg/dl Disposition: 12/30 07:05 Co-signature as Attending Physician, Leopoldo Nixon MD. rn Disposition: 12/29/18 18:00 Hospitalization ordered by Steph Pagan for Inpatient Admission. Preliminary diagnosis are Cutaneous abscess of other sites - Clitoral lakhani and mons pubic region, Diabetes mellitus due to underlying condition with hyperglycemia. - Bed requested for Telemetry/MedSurg (Inpatient). - Status is Inpatient Admission. ca1 - Condition is Stable. - Problem is new. - Symptoms have improved. UTI on Admission? No Signatures: Dispatcher [employer] Aparna Ybarra RN Leopoldo Dhaliwal MD MD rn Roszak, Josh, PA PA jr8 Naeem Giles RN RN Barbie Vaca RN RN ca1 Angie Nieves RN iw Corrections: (The following items were deleted from the chart) 12/29 18:00 18:00 Hospitalization Ordered by Steph Pagan MD for Inpatient Admission. Preliminary jr8 diagnosis is Cutaneous abscess of other sites; Diabetes mellitus due to underlying condition with hyperglycemia. Bed requested for Telemetry/MedSurg (Inpatient). Status is Inpatient Admission. Condition is Stable. Problem is new. Symptoms have improved. UTI on Admission? No. jr8 18:03 18:00 12/29/2018 18:00 Hospitalization Ordered by Steph Pagan MD for Inpatient jr8 Admission. Preliminary diagnosis is Cutaneous abscess of other sites - Cliteral lakhani and mons pubic region; Diabetes mellitus due to underlying condition with hyperglycemia. Bed requested for Telemetry/MedSurg (Inpatient). Status is Inpatient Admission. Condition is Stable. Problem is new. Symptoms have improved. UTI on Admission? No. jr8 18:40 18:03 12/29/2018 18:00 Hospitalization Ordered by Steph Pagan MD for Inpatient dw Admission. Preliminary diagnosis is Cutaneous abscess of other sites - Clitoral lakhani and mons pubic region; Diabetes mellitus due to underlying condition with hyperglycemia. Bed requested for Telemetry/MedSurg (Inpatient). Status is Inpatient Admission. Condition is Stable. Problem is new. Symptoms have improved. UTI on Admission? No. jr8 20:37 18:40 12/29/2018 18:00 Hospitalization Ordered by Steph Pagan MD for Inpatient ca1 Admission. Preliminary diagnosis is Cutaneous abscess of other sites - Clitoral lakhani and mons pubic region; Diabetes mellitus due to underlying condition with hyperglycemia. Bed requested for Telemetry/MedSurg (Inpatient). Status is Inpatient Admission. Condition is Stable. Problem is new. Symptoms have improved. UTI on Admission? No. dw
[2018-12-29 18:02] LABS: Potassium 4.1 mmol/L (3.5-5.1)
[2018-12-29] MEDS ORDERED: INSULIN -REGULAR HUMAN 50 UNIT/0.5 ML ML ONE ×2 (18:14→18:51)
[2018-12-29] MEDS ORDERED: ONDANSETRON 4 MG/2 ML VIAL IV PRN (18:21)
[2018-12-29] MEDS ORDERED: ACETAMINOPHEN 500 MG TAB PO PRN (18:21)
[2018-12-29] MEDS ORDERED: VANCOMYCIN/NS 1 gm 1 GM/250 ML BAG IVPB SCH (18:30)
--- NOTE | 2018-12-29 19:10 | RAD REPORT ---
EXAM DESCRIPTION: US - Extremity Nonvascular Limited - 12/29/2018 6:42 pm CLINICAL HISTORY: Pelvic pain/mass COMPARISON: None FINDINGS: Palpable mass is present within the region of the left labia. Ultrasound demonstrates a 1.5 centimeter heterogeneous mass containing mild vascularity. It contains sonolucent, isoechoic and echogenic areas IMPRESSION: 1.5 centimeter mass within the region of the left labia may represent an abscess and jeannette uld be correlated clinically. If the mass does not resolve status post treatment then follow-up ultra sound would be recommended
[2018-12-29] MEDS: NA CHLORIDE 0.9% 1,000 ML IV SCH (21:05)
[2018-12-29] MEDS: MORPHINE 4 MG/ML SYR IV PRN (21:06)
[2018-12-29 21:23] VITALS: BMI 31.9
[2018-12-29] MEDS ORDERED: D50W 25 GM/50 ML SYRINGE IV PRN (21:40)
[2018-12-29] MEDS ORDERED: GLUCAGON 1 MG/VIAL IM PRN (21:40)
[2018-12-29] MEDS ORDERED: INSULIN GLARGINE 100 UNITS/ML SQ ONE (21:41)
[2018-12-29] MEDS ORDERED: VANCOMYCIN 1 GM/VIAL ONE (21:44)
[2018-12-29] MEDS ORDERED: NA CHLORIDE 0.9% 250 ML ONE (21:45)
[2018-12-29] MEDS: VANCOMYCIN 1.5 GM in NA CHLORIDE 0.9% 500 ML IV SCH (21:53)
[2018-12-29] MEDS ORDERED: AMPICILLIN/SULBACTAM 3GM/VIAL ONE (21:59)
--- NOTE | 2018-12-29 22:18 | P.CNS ---
Date of Consult: 12/29/18 Patient is a 48 y/o with multiple medical issues including Diabetes Mellitus that is uncontrolled leading to right leg amputation, congestive heart failure, multiple heart bypass surgery, hyperlipidemia and hypertension. Patient presents to the ED c/o vulvar pain. She states that about 3 days ago she began feeling a bulge in the left side of her vulva. She states she has had this problem before. She states that she has a h/o recurrent yeast infections for which she has repeatedly been given diflucan. Patient states that whenever she is at home her sugar is never in control and is never under 200. Patient is currently eating [employer] and has multiple drinks from there as well. I discussed with the patient the importance of eating healthy for her issues but she states that she can't do that. Selected Entries 12/29/18 12/29/18 12/29/18 19:43 20:00 20:19 Temperature 97.8 F 97.8 F Pulse Rate 94 H Respiratory 20 14 Rate Blood Pressure 134/65 113/82 O2 Sat by Pulse 100 Oximetry 12/29/18 21:06 Temperature 97.8 F Pulse Rate Respiratory Rate Blood Pressure O2 Sat by Pulse Oximetry Laboratory Tests 12/29/18 12/29/18 12/29/18 17:28 17:28 17:28 WBC 7.8 Hgb 14.4 Hct 42.9 Plt Count 279 Sodium 129 L Potassium 4.1 Chloride 93 L Carbon Dioxide 27 BUN 16 Creatinine 1.29 Estimated GFR 44 L Glucose 685 H* POC Glucose > 450 H* 12/29/18 12/29/18 18:43 19:37 WBC Hgb Hct Plt Count Sodium Potassium Chloride Carbon Dioxide BUN Creatinine Estimated GFR Glucose POC Glucose > 450 H* 383 H GEN: resting comfortably in bed and able to give me an extended history of all of her medical issues without c/o pain EXT: right leg amputated at mid thigh ABD: soft, nontender, nondistended Vaginal exam: External genitalia: bilateral edema, white clumy discharge at introitus and clumped on the skin; there is a large indurated area on the left vulva adjacent to the clitoris but it is not involving the clitoris. Vagina: normal rugae, clumpy white discharge Cervix: no palpable masses, no CMT Uterus: unable to palpate due to body habitus Adnexa: no palpabe masses Patient is a 48 y/o who presents with a possible left vulvar abscess - uncontrolled diabetes - needs to improve glucose control - vulvar abscess - no indication for surgical intervention, continue with IV antibiotics - vulvovaginitis - treat with diflucan daily
[2018-12-29] MEDS ORDERED: NA CHLORIDE 0.9% 100 ML IV ONE (22:58)
[2018-12-29] MEDS: AMPICILLIN/SULBACT 3 GM in NA CHLORIDE 0.9% 100 ML IVPB SCH (23:24)
[2018-12-30] MEDS: MORPHINE 4 MG/ML SYR IV PRN ×6 (00:58→21:10)
[2018-12-30] MEDS ORDERED: NA CHLORIDE 0.9% 100 ML IV ONE (02:24)
[2018-12-30 04:07] LABS: Urine Appearance CLOUDY; Urine Bilirubin NEGATIVE (NEG); Urine Blood NEGATIVE (NEG); Urine Color YELLOW; Urine Glucose 3+ (NEG); Urine Protein NEGATIVE (NEG); Urine Specific Gravity 1.025 (1.005-1.030)
[2018-12-30 04:10] LABS: Urine Microscopic Reflex ORDER UMIC
[2018-12-30 04:56] LABS: Urine Bacteria <20 /HPF (<20); Urine Culture Reflex Order REFLEXED; Urine RBC <5 /HPF (NONE SEEN)
[2018-12-30] MEDS: AMPICILLIN/SULBACT 3 GM in NA CHLORIDE 0.9% 100 ML IVPB SCH ×3 (05:01→16:53)
[2018-12-30] MEDS: NA CHLORIDE 0.9% 1,000 ML IV SCH ×3 (05:03→16:02)
[2018-12-30 05:47] LABS: Protime INR 0.88
[2018-12-30 05:48] LABS: Absolute Lymphocytes (CBC) 1.8 K/uL (0.7-4.9); Basophils % 0.5 % (0-1.3); Hematocrit 40.2 % (36.0-45.0); Lymphocytes % 19.7 % (15.3-44.8); MPV 9.1 fL (7.6-11.3); RBC Red Blood Cell Count 4.42 M/uL (3.86-4.86)
[2018-12-30 06:20] LABS: Potassium 3.8 mmol/L (3.5-5.1)
[2018-12-30] MEDS ORDERED: D50W 25 GM/50 ML SYRINGE IV PRN ×2 (06:31→07:58)
[2018-12-30] MEDS ORDERED: GLUCAGON 1 MG/VIAL IM PRN ×2 (06:31→07:58)
[2018-12-30] MEDS: INSULIN 70/30 100 UNITS/ML SQ ONE ×2 (07:15→07:22)
[2018-12-30] MEDS ORDERED: INSULIN 70/30 100 UNITS/ML SQ ONE (09:00)
[2018-12-30] MEDS: GABAPENTIN 400 MG CAP PO SCH ×2 (12:27→21:09)
[2018-12-30] MEDS: levETIRAcetam 500 MG TAB PO SCH ×2 (12:27→21:09)
[2018-12-30] MEDS ORDERED: FLUCONAZOLE 100 MG TAB PO ONE (13:00)
--- NOTE | 2018-12-30 13:11 | P.PN ---
Subjective Date of Service: 12/30/18 Chief Complaint: Abscess Patient seen and examined at bedside. No family at bedside. Chart reviewed and case discussed with nursing staff. Continues to complain of pain. No other complaints. Acute events noted overnight Seen with soda at bedside. Review of Systems 10-point ROS is otherwise unremarkable Physical Examination - Vital Signs Temperature: 97.4 F Blood Pressure: 138/72 Pulse: 95 Respirations: 15 Pulse Ox (%): 94 - Physical Exam General: Alert, Oriented x3, Mild distress, Moderate distress HEENT: Atraumatic, PERRLA, EOMI Neck: Supple, JVD not distended Respiratory: Clear to auscultation bilaterally, Normal air movement Cardiovascular: Regular rate/rhythm, Normal S1 S2 Gastrointestinal: Normal bowel sounds, No tenderness Musculoskeletal: No tenderness, Other (Right AKA) Integumentary: Other (Vulvar abscess, ) Neurological: Normal speech, Normal tone, Normal affect - Studies Laboratory Data (last 24 hrs) 12/29/18 17:28: Sodium 129 L, Potassium 4.1, BUN 16, Creatinine 1.29, Glucose 685 H* 12/29/18 17:28: WBC 7.8, Hgb 14.4, Hct 42.9, Plt Count 279 Assessment And Plan - Current Problems (Diagnosis) (1) Vulvar abscess Current Visit: Yes Status: Acute Plan: Likely secondary to underlying uncontrolled diabetes mellitus - continue IV antibiotics - gynecology consulted, recommendations appreciated (2) Diabetes mellitus Current Visit: Yes Status: Acute Plan: She will need strict blood sugar control. Patient seems to be not compliant with her diet. She also has not been taking her Lantus at home, this may be due to financial reasons. - will continue Lantus as Alesse 70 30 here. We may need to increase her 70 30 prior to discharge if patient cannot afford Lantus. We will get social work involved tomorrow for resources. Qualifiers: Diabetes mellitus type: type 2 Diabetes mellitus buttermaker continuous churn insulin use: with buttermaker continuous churn use Diabetes mellitus complication status: with skin complications Diabetes mellitus complication detail: with other skin ulcer Qualified Code(s): E11.622 - Type 2 diabetes mellitus with other skin ulcer; Z79.4 - [facility] (current) use of insulin (3) Vulvovaginitis Current Visit: Yes Status: Acute Plan: Treat with Diflucan (4) Coronary artery disease Onset Date: 05/16/17 Current Visit: No Status: Chronic Qualifiers: Coronary Disease-Associated Artery/Lesion type: [place] artery [place] vs. transplanted heart: [place] heart Associated angina: without angina Qualified Code(s): I25.10 - Atherosclerotic heart disease of [place] coronary artery without angina pectoris (5) Hx of CABG Current Visit: No Status: Chronic (6) Obesity Current Visit: No Status: Chronic Qualifiers: Obesity type: due to excess calories Obesity classification: adult class 1 (BMI 30 - 34.9) Serious obesity comorbidity presence: without serious comorbidity (7) History of peripheral arterial disease Current Visit: No Status: Acute (8) S/P AKA (above knee amputation) unilateral Current Visit: No Status: Chronic - Plan DVT prophylaxis: Lovenox GI prophylaxis: Protonix Diet: 1800 diabetic Disposition: Pending symptomatic improvement.
[2018-12-30] MEDS ORDERED: HOME MED 1 EA UNK (Gabapentin [Gabapentin] 800 MG) PO SCH (14:00)
[2018-12-30] MEDS: INSULIN 70/30 100 UNITS/ML SQ SCH (16:50)
--- NOTE | 2018-12-30 17:13 | P.HP ---
Certification for Inpatient Patient admitted to: Inpatient With expected LOS: >2 Midnights Patient will require the following post-hospital care: None Practitioner: I am a practitioner with admitting privileges, knowledge of patient current condition, hospital course, and medical plan of care. Services: Services provided to patient in accordance with Admission requirements found in Title 42 Section 412.3 of the Code of Federal Regulations Patient History Date of Service: 12/29/18 Reason for admission: Abscess History of Present Illness: Patient is a 48-year-old female came to the hospital with pain in her labial region. She was felt that it was an abscess in that region. She came to the hospital for further evaluation. Patient has had multiple MRSA infections in the past. She felt like this needed to be opened up as well. However, on evaluation by our room attendant it was felt that IV antibiotics should be sufficient. Patient was also severely hyperglycemic. She was admitted to the hospital for strict blood sugar control as well as IV antibiotic therapy. patient has had very poorly controlled diabetes for quite a while. She has required a right above knee amputation. He has had coronary artery disease. She will need better compliance going forward unless she wants to have more severe complications as she gets older. Allergies tramadol Allergy (Mild, Verified 12/29/18 21:16) Hives/Rash adhesive tape Allergy (Verified 12/30/18 02:54) Hives ketorolac [From Toradol] Allergy (Verified 12/29/18 21:16) Hives/Rash Home Medications: Ranolazine [Ranexa] 500 mg PO BID 05/15/17 Aspirin 81 mg PO DAILY #30 tab.chew 05/16/17 Atorvastatin Calcium [Lipitor] 40 mg PO BEDTIME #30 tab 05/16/17 Clopidogrel Bisulfate [Plavix] 75 mg PO DAILY #30 tablet 05/16/17 Duloxetine HCl 30 mg PO DAILY #30 capsule.dr 05/16/17 Furosemide 20 mg PO DAILY #30 tablet 05/16/17 Gabapentin 800 mg PO TID #120 tablet 05/16/17 Metoprolol Tartrate [Lopressor*] 25 mg PO DAILY #30 tab 05/16/17 Potassium Chloride [Klor-Con 10] 10 meq PO DAILY #30 tablet.er 05/16/17 levETIRAcetam [Levetiracetam] 500 mg PO BID #60 tablet 05/16/17 Pantoprazole [Protonix Tab*] 40 mg PO DAILY #30 tab 05/17/17 Insulin 70/30 NPH/Reg Human [Novolin 70/30*] 80 unit SQ BID 12/30/18 Insulin Glargine Human [Lantus*] 60 unit SQ BEDTIME 12/30/18 Metformin HCl 1,000 mg PO BID 12/30/18 - Past Medical/Surgical History Has patient received pneumonia vaccine in the past: No Diabetic: Yes -: Coronary artery disease -: Type 1 diabetes -: liver cyst -: neuropathy -: 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 -: Peripheral arterial disease -: Hypertension -: cva -: chf -: recurrent yeast infection -: triple bypass (heart) 2012 -: 2 C-Sections -: double bypass 2015 -: 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 -: Below knee amputation 2014 -: Above knee amputation 2014 -: Eye surgery for detached retina 2015 - Family History Father Medical History: Diabetes Notes: Pt's father of an CT Mother Notes: Pt states her mother is in perfect health Brother Medical History: Diabetes Notes: Brother recently diagnosed in 2015 Sister Medical History: Hypertension - Social History Smoking Status: Current every day smoker Alcohol use: No CD- Drugs: No Caffeine use: Yes Place of Residence: Home Review of Systems 10-point ROS is otherwise unremarkable Physical Examination - Vital Signs Temperature: 97.3 F Blood Pressure: 127/66 Pulse: 87 Respirations: 15 Pulse Ox (%): 98 - Physical Exam General: Alert, In no apparent distress, Oriented x3 HEENT: Atraumatic, PERRLA, Mucous membr. moist/pink, EOMI, Sclerae nonicteric Neck: Supple, 2+ carotid pulse no bruit, No LAD, Without JVD or thyroid abnormality Respiratory: Clear to auscultation bilaterally, Normal air movement Cardiovascular: Regular rate/rhythm, Normal S1 S2, No murmurs Gastrointestinal: Normal bowel sounds, Soft and benign, Non-distended, No tenderness Musculoskeletal: No clubbing, No swelling, No tenderness Integumentary: No rashes Neurological: Normal gait, Normal speech, Normal strength at 5/5 x4 extr, Normal tone, Sensation intact, Cranial nerves 3-12 intact, Normal affect Lymphatics: No axilla or inguinal lymphadenopathy - Studies Laboratory Data (last 24 hrs) 12/29/18 17:28: Sodium 129 L, Potassium 4.1, BUN 16, Creatinine 1.29, Glucose 685 H* 12/29/18 17:28: WBC 7.8, Hgb 14.4, Hct 42.9, Plt Count 279 Assessment & Plan - Problems (Diagnosis) (1) Diabetes mellitus Current Visit: Yes Status: Acute Qualifiers: Diabetes mellitus type: type 2 Diabetes mellitus long-term insulin use: with long-term use Diabetes mellitus complication status: with skin complications Diabetes mellitus complication detail: with other skin ulcer Qualified Code(s): E11.622 - Type 2 diabetes mellitus with other skin ulcer; Z79.4 - [facility] (current) use of insulin (2) Vulvar abscess Current Visit: Yes Status: Acute (3) Diabetes type 1, uncontrolled Onset Date: 05/16/17 Current Visit: No Status: Acute (4) History of peripheral arterial disease Current Visit: No Status: Acute (5) Coronary artery disease Onset Date: 05/16/17 Current Visit: No Status: Chronic Qualifiers: Coronary Disease-Associated Artery/Lesion type: [place] artery [place] vs. transplanted heart: [place] heart Associated angina: without angina Qualified Code(s): I25.10 - Atherosclerotic heart disease of [place] coronary artery without angina pectoris (6) Hx of CABG Current Visit: No Status: Chronic (7) Obesity Current Visit: No Status: Chronic Qualifiers: Obesity type: due to excess calories Obesity classification: adult class 1 (BMI 30 - 34.9) Serious obesity comorbidity presence: without serious comorbidity (8) S/P AKA (above knee amputation) unilateral Current Visit: No Status: Chronic - Plan 1. Continue with IV antibiotic 2. Continue with local wound care 3. Gynecologic consultation 4. Gentle IV hydration 5. Monitor CBC 6. Strict blood sugar monitoring 7. Pain control 8. GI and DVT prophylaxis Discharge Plan: Home Plan to discharge in: Greater than 2 days - Advance Directives Does patient have a Living Will: No Does patient have a Durable POA for Healthcare: No - Code Status/Comfort Care Code Status Assessed: Yes Code Status: Full Code Critical Care: No Time Spent Managing PTS Care (In Minutes): 45
[2018-12-30] MEDS ORDERED: FLUCONAZOLE 100 MG TAB PO SCH (18:00)
[2018-12-30] MEDS ORDERED: HOME MED 1 EA UNK (Ranolazine [Ranexa] 500 MG) PO SCH (21:00)
[2018-12-30] MEDS: INSULIN GLARGINE 100 UNITS/ML SQ SCH (21:07)
[2018-12-30] MEDS: ATORVASTATIN 40 MG TAB PO SCH (21:08)
[2018-12-30] MEDS: VANCOMYCIN 1.5 GM in NA CHLORIDE 0.9% 500 ML IV SCH (21:10)
[2018-12-31] MEDS: AMPICILLIN/SULBACT 3 GM in NA CHLORIDE 0.9% 100 ML IVPB SCH ×4 (00:20→17:03)
[2018-12-31] MEDS: NA CHLORIDE 0.9% 1,000 ML IV SCH ×3 (02:24→20:54)
[2018-12-31] MEDS: MORPHINE 4 MG/ML SYR IV PRN ×4 (04:00→20:57)
[2018-12-31] MEDS: INSULIN 70/30 100 UNITS/ML SQ SCH ×2 (08:33→17:04)
[2018-12-31] MEDS: POTASSIUM CL SA 10 MEQ TAB PO SCH (08:34)
[2018-12-31] MEDS: CLOPIDOGREL 75 MG TABLET PO SCH (08:34)
[2018-12-31] MEDS: ASPIRIN 81 MG CHEWABLE TABLET PO SCH (08:34)
[2018-12-31] MEDS: DULOXETINE 30 MG CAP PO SCH (08:34)
[2018-12-31] MEDS: PANTOPRAZOLE 40MG TABLET PO SCH (08:34)
[2018-12-31] MEDS: FUROSEMIDE 20 MG TABLET PO SCH (08:34)
[2018-12-31] MEDS: METOPROLOL TAR 25 MG TAB PO SCH (08:35)
[2018-12-31] MEDS: levETIRAcetam 500 MG TAB PO SCH ×2 (08:35→20:55)
[2018-12-31] MEDS: GABAPENTIN 400 MG CAP PO SCH ×3 (08:35→20:56)
[2018-12-31] MEDS: FLUCONAZOLE 100 MG TAB PO SCH (08:36)
--- NOTE | 2018-12-31 10:27 | P.PN ---
Subjective Date of Service: 12/31/18 Chief Complaint: Abscess Patient seen and examined at bedside. No family at bedside. Chart reviewed and case discussed with nursing staff. improved pain, but still having pain. No other complaints. Acute events noted overnight. Blood sugars improved today. Seen with soda, juice, chips at bedside. States that she has tried dieting but has not worked and is not interested in diet any more, Review of Systems 10-point ROS is otherwise unremarkable Physical Examination - Vital Signs Temperature: 97.3 F Blood Pressure: 120/71 Pulse: 100 Respirations: 18 Pulse Ox (%): 99 - Physical Exam General: Alert, In no apparent distress, Oriented x3, Obese HEENT: Atraumatic, PERRLA, EOMI Neck: Supple, JVD not distended Respiratory: Clear to auscultation bilaterally, Normal air movement Cardiovascular: Regular rate/rhythm, Normal S1 S2 Gastrointestinal: Normal bowel sounds, No tenderness Musculoskeletal: No tenderness, Other (right AKA) Integumentary: No rashes Neurological: Normal speech, Normal tone, Normal affect External genitalia: Other (flucuant abscess left vulvar area. ) Assessment And Plan - Current Problems (Diagnosis) (1) Vulvar abscess Current Visit: Yes Status: Acute Plan: Likely secondary to underlying uncontrolled diabetes mellitus - continue IV antibiotics - gynecology consulted, recommendations appreciated. Not recommending I&D at this time. (2) Diabetes mellitus Current Visit: Yes Status: Acute Plan: She will need strict blood sugar control. Patient seems to be not compliant with her diet. She also has not been taking her Lantus at home, this may be due to financial reasons. - will continue Lantus as well as 70/30 here. Blood sugars improved on that. - Patient states she is unable to afford lantus prescription. She sees Dr. Flores, chemist proteins. - It seems that her hyperglycemia is likely worsened by non compliant diet. - SW consulted for DM resources - Educated on diet, not interested at this time. Mattress Stuffer consulted. 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 transplanted heart: [place] heart Associated angina: without angina Qualified Code(s): I25.10 - Atherosclerotic heart disease of [place] coronary artery without angina pectoris (5) Hx of CABG Current Visit: No Status: Chronic (6) Obesity Current Visit: No Status: Chronic Qualifiers: Obesity type: due to excess calories Obesity classification: adult class 1 (BMI 30 - 34.9) Serious obesity comorbidity presence: without serious comorbidity (7) History of peripheral arterial disease Current Visit: No Status: Acute (8) S/P AKA (above knee amputation) unilateral Current Visit: No Status: Chronic - Plan DVT prophylaxis: Lovenox GI prophylaxis: Protonix Diet: 1800 diabetic Disposition: Pending symptomatic improvement.Continue IV antibiotics. Will likely need antibiotics on discharge.
[2018-12-31] MEDS: ATORVASTATIN 40 MG TAB PO SCH (20:55)
[2018-12-31] MEDS: INSULIN GLARGINE 100 UNITS/ML SQ SCH (21:00)
[2018-12-31] MEDS: VANCOMYCIN 1.5 GM in NA CHLORIDE 0.9% 500 ML IV SCH (21:08)
[2019-01-01] MEDS: AMPICILLIN/SULBACT 3 GM in NA CHLORIDE 0.9% 100 ML IVPB SCH ×4 (01:41→17:14)
[2019-01-01] MEDS: NA CHLORIDE 0.9% 1,000 ML IV SCH ×3 (03:00→19:00)
[2019-01-01] MEDS: MORPHINE 4 MG/ML SYR IV PRN ×5 (04:06→22:43)
[2019-01-01] MEDS: ASPIRIN 81 MG CHEWABLE TABLET PO SCH (08:14)
[2019-01-01] MEDS: POTASSIUM CL SA 10 MEQ TAB PO SCH (08:14)
[2019-01-01] MEDS: METOPROLOL TAR 25 MG TAB PO SCH (08:14)
[2019-01-01] MEDS: GABAPENTIN 400 MG CAP PO SCH ×3 (08:14→22:28)
[2019-01-01] MEDS: DULOXETINE 30 MG CAP PO SCH (08:14)
[2019-01-01] MEDS: levETIRAcetam 500 MG TAB PO SCH ×2 (08:14→22:28)
[2019-01-01] MEDS: FUROSEMIDE 20 MG TABLET PO SCH (08:15)
[2019-01-01] MEDS: FLUCONAZOLE 100 MG TAB PO SCH (08:15)
[2019-01-01] MEDS: CLOPIDOGREL 75 MG TABLET PO SCH (08:15)
[2019-01-01] MEDS: PANTOPRAZOLE 40MG TABLET PO SCH (08:16)
[2019-01-01] MEDS: INSULIN 70/30 100 UNITS/ML SQ SCH ×2 (08:17→17:22)
[2019-01-01 09:22] VITALS: O2SAT 97
--- NOTE | 2019-01-01 18:24 | PN ---
Date of Progress Note: 01/01/2019 Subjective: Patient is seen and examined. Chart reviewed and case discussed with RN. Patient christy garcialy has been noncompliant with her diabetic diet. States that she has tried that previously and is not interested at this time. She understands the risks associated with uncontrolled diabetes includ ing worsening of her infection, possibly leading to sepsis, bacteremia, and even . Patient jennie kessler has some swelling and pain of her affected area on the labia. Medications: List reviewed. Physical Examination: Vital Signs: Temperature 97.2, heart rate 88, blood pressure 132/63, respirations 18, O2 97% on room air. General: Awake, alert, oriented x3, obese female. CV: S1, S2. Regular rate and rhythm. Peripheral pulses present. Respiratory: Moving air well bilaterally. No wheezing or stridor. No use of accessory muscles. Gastrointestinal: Abdomen is soft, nontender, nondistended. Positive bowel sounds. Extremities: No clubbing, cyanosis, or edema. Neurologic: Nonfocal. Musculoskeletal: Right AKA. : Patient examined with female nurse aeronautical research engineer, Yecenia, charge nurse. Patient still has some eryt kaylyn on the left labia and vulva, tender to palpation. No discharge present. Laboratory Data: Pending. Assessment And Plan: A 48-year-old female with: 1.Vulvar abscess. Cultures are negative. Continue IV antibiotics for now. We will discuss with RICK Beltran. No surgical intervention was recommended upon initial consultation. Patient continues to have re dness, swelling, and pain. 2.Vulvovaginitis. Continue with Diflucan. 3.Diabetes mellitus type 2 with long-term use of insulin with hyperglycemia. Hemoglobin A1c is over 12%. Patient does follow with forest landscape ecology professor. Unable to afford Lantus. Patient is noncompliant w ith her diet as well. Counseled extensively. 4.Coronary artery disease, [place] artery, and [place] heart without angina, stable. 5.History of coronary artery bypass graft. 6.Obesity, BMI 31.9. Counseled. 7.History of peripheral arterial disease. 8.Status post right above-knee amputation. 9.Hypertriglyceridemia. 10.Deep vein thrombosis prophylaxis addressed. Continue with SCD. We will add Lovenox. We will touch base with INDUSTRIAL MAINTENANCE REPAIRER HELPER regarding possible I and D. We will recheck CBC and CMP in a.m. Likely discharge once clinically improved in the next 24 to 48 hours. /KANDIS Voice ID: [id number] Report ID: [id number]
[2019-01-01] MEDS ORDERED: VANCOMYCIN 1.75 GM in NA CHLORIDE 0.9% 500 ML IV SCH (21:00)
[2019-01-01] MEDS: ATORVASTATIN 40 MG TAB PO SCH (22:28)
[2019-01-01] MEDS: INSULIN GLARGINE 100 UNITS/ML SQ SCH (22:28)
[2019-01-02] MEDS: NA CHLORIDE 0.9% 1,000 ML IV SCH ×3 (03:00→11:00)
[2019-01-02] MEDS: MORPHINE 4 MG/ML SYR IV PRN ×2 (04:15→08:37)
[2019-01-02 04:30] LABS: Basophils % 0.5 % (0-1.3); Hematocrit 36.2 % (36.0-45.0); Lymphocytes % 18.4 % (15.3-44.8); MPV 8.9 fL (7.6-11.3); RBC Red Blood Cell Count 4.01 M/uL (3.86-4.86)
[2019-01-02 04:34] LABS: Potassium 3.9 mmol/L (3.5-5.1)
[2019-01-02 04:35] LABS: Albumin 2.4 g/dL (3.4-5.0); Bilirubin Total 0.3 mg/dL (0.2-1.0); Protein, Total 6.1 g/dL (6.4-8.2)
[2019-01-02] MEDS: AMPICILLIN/SULBACT 3 GM in NA CHLORIDE 0.9% 100 ML IVPB SCH ×4 (05:43→12:00)
[2019-01-02 06:51] VITALS: BP 137/63
[2019-01-02] MEDS: GABAPENTIN 400 MG CAP PO SCH (08:35)
[2019-01-02] MEDS: ASPIRIN 81 MG CHEWABLE TABLET PO SCH (08:35)
[2019-01-02] MEDS: METOPROLOL TAR 25 MG TAB PO SCH (08:35)
[2019-01-02] MEDS: levETIRAcetam 500 MG TAB PO SCH (08:35)
[2019-01-02] MEDS: PANTOPRAZOLE 40MG TABLET PO SCH (08:35)
[2019-01-02] MEDS: FLUCONAZOLE 100 MG TAB PO SCH (08:36)
[2019-01-02] MEDS: POTASSIUM CL SA 10 MEQ TAB PO SCH (08:36)
[2019-01-02] MEDS: CLOPIDOGREL 75 MG TABLET PO SCH (08:37)
[2019-01-02] MEDS: FUROSEMIDE 20 MG TABLET PO SCH (08:37)
[2019-01-02] MEDS: DULOXETINE 30 MG CAP PO SCH (08:37)
[2019-01-02] MEDS: INSULIN 70/30 100 UNITS/ML SQ SCH (08:38)
[2019-01-02 10:40] VITALS: TEMP 97
[2019-01-02] MEDS ORDERED: HYDROCODONE/APAP 7.5/325 MG TAB PO ONE (12:10)
--- NOTE | 2019-01-03 10:32 | DS ---
Date of Discharge: 01/02/2019 Consultants: Dr. Gomez with [facility] AND CONSUMER SCIENCES TEACH[facility]. Procedures: None. Admitting Diagnoses: 1.Vulvar cellulitis. 2.Diabetes mellitus type 1 with long-term use of insulin with skin ulcer. 3.History of peripheral arterial disease. 4.Coronary artery disease, [place] artery and [place] heart without angina. 5.History of coronary artery bypass graft. 6.Obesity, BMI 31.9. 7.Status post mevui-pwg-maea amputation. Discharge Diagnoses: 1.Vulvar cellulitis. Cultures negative. No surgical intervention. 2.Vulvovaginitis. Continue with Diflucan. Urine culture growing out yeast. 3.Diabetes mellitus type 1 with long-term use of insulin with hyperglycemia and skin ulcer. Hemoglo bin A1c over 12%. 4.Coronary artery disease, [place] artery and [place] heart without angina, status post coronary arter y bypass graft, stable. 5.Obesity, BMI 31.9. 6.History of peripheral arterial disease. 7.Status post right iftma-cte-mdbi amputation. 8.Hypertriglyceridemia. 9.Noncompliance intentional with diet and due to financial constraints unable to afford Lantus. Hospital Course: Patient is a 48-year-old female with past medical history of type 1 diabetes, obesi ty, heart disease, and hyperlipidemia, comes in with abscess and pain in the labial region. Patient has had the previous MRSA infections in the past. Patient was evaluated by PRINTING SUPERVISOR. She did not feel that there was any fluctuance or abscess that needs to be drained. Patient did not appear to be sep tic. I spoke with Dr. Gomez. She did not recommend any surgical intervention. Again, as stated, th ere is no fluctuance. No area to be drained according to Dr. Gomez. Patient's white blood cell coun t remained normal. Her blood glucose levels which were 685 on admission with pseudohyponatremia impr juvenal. Her insulin was adjusted. She states that she is unable to take Lantus long-acting insulin as she cannot afford it and she is admittedly noncompliant with her diabetic diet. She was counseled r egarding the risks of hyperglycemia including worsening symptoms, worsening of her abscess, and cellu litis along with retinopathy, neuropathy, and nephropathy. She already has wlejm-gsb-plas amputation on the right side. She stated that she has tried in the past; however, has not been successful and she understands the risks. She is following up with Endocrinology as an outpatient. Her next appoin tment is on Monday. Patient's hemoglobin A1c was 12.3%. Patient's urine culture grew out yeast. Th ere is no drainage from the labial cellulitis site. Patient was then cleared for discharge from FAMILY AND CONSUMER SCIENCES TEACHER standpoint. She was sent home on a course of clindamycin and fluconazole. Return to ER for worsenin g condition. Followup: Follow up with primary care physician in 2 to 3 days. Follow up with tariff expert, Dr. Flores on Monday at [facility]. Follow up with primary FAMILY AND CONSUMER SCIENCES TEACHER in [place] or Dr. Gomez locally in 1 week or return to ER for worsening condition. Diet: Diabetic. Activity: Fall precautions. Patient transfers to wheelchair on her own. Physical Examination: General: Awake, alert, oriented x3, morbidly obese female, not in any acute distress. CV: S1, S2. Respiratory: Moving air well bilaterally. Abdomen: Soft, nontender, nondistended. Positive bowel sounds. Extremities: No clubbing, cyanosis, or edema. Neurologic: Nonfocal. Total time spent discharging patient was 41 minutes. /KANDIS Voice ID: [id number] Report ID: [id number]
== END 2019-01-02 12:42 | disposition home or self-care (01) | DRG 759 ==
LOC: ER 16:18 → ERHOLD 18:21 → 4TH 20:30
PROVIDERS: ADMIT Hospitalist; ATTEND Family Medicine
DX: N76.4 Abscess of vulva (principal); N76.0 Acute vaginitis; E10.65 Type 1 diabetes mellitus with hyperglycemia; Z91.11 Patient's noncompliance with dietary regimen; Z91.14 Patient's other noncompliance with medication regimen; I25.10 Atherosclerotic heart disease of native coronary artery without angina pectoris; F17.210 Nicotine dependence, cigarettes, uncomplicated; I11.0 Hypertensive heart disease with heart failure; I50.9 Heart failure, unspecified; E10.622 Type 1 diabetes mellitus with other skin ulcer; L98.499 Non-pressure chronic ulcer of skin of other sites with unspecified severity; E10.40 Type 1 diabetes mellitus with diabetic neuropathy, unspecified; E10.51 Type 1 diabetes mellitus with diabetic peripheral angiopathy without gangrene; E78.1 Pure hyperglyceridemia; E66.09 Other obesity due to excess calories; Z68.31 Body mass index [BMI] 31.0-31.9, adult; Z79.4 Long term (current) use of insulin; Z79.82 Long term (current) use of aspirin; Z95.1 Presence of aortocoronary bypass graft; Z86.14 Personal history of Methicillin resistant Staphylococcus aureus infection; Z89.611 Acquired absence of right leg above knee
CPT/HCPCS: 36415; 76882; 80048; 80053; 80061; 80202; 81003; 81015; 82962; 83036; 85025; 85610; 85730; 87086; 87088; 96361; 96365; 96375; 99285; J0295; J2175; J7030

== ENCOUNTER 2019-02-14 19:11 | Emergency (ER) | payer OTHER ==
--- OUTSIDE RECORDS SUMMARY | 2019-02-14 19:13 | XMS REPORT ---
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 Medications Medication Code Code Instructions Start End Status Dosage System Date Date Metoprolol [facility] 40773993086 25 MG Orally Active 1 tablet Tartrate Twice a day with food Pantoprazole [facility] 13444601715 40 MG Orally Active 1 tablet Sodium Once a day Gabapentin [facility] 53621858861 800 MG Orally Active 1 tablet Three times a day Duloxetine HCl [facility] 83492761277 30 MG Orally Active 1 capsule Twice a day Aspirin [facility] 70318155605 81 MG Orally Active 1 tablet Once a day Insulin Aspart [facility] [address]-42 (70-30) 100 Active 60 units Prot & Aspart UNIT/ML BID Subcutaneous Ranexa [facility] 73607168262 500 MG Orally Active 1 tablet Twice a day Levetiracetam [facility] 10450891898 500 MG Orally Active 1 tablet Twice a day Lexapro [facility] 59267592597 20 MG Orally Active 1 tablet Once a day Xanax [facility] 45920879541 0.5 MG Orally Active 1 tablet Twice a day Clopidogrel [facility] 70651308216 75 MG Orally Active 1 tablet Bisulfate Once a day Klor-Con M10 [facility] 21861760744 10 MEQ Orally Active 1 tablet Twice a day with food Furosemide [facility] 00271986800 20 MG Orally Active 1 tablet Once a day Metformin HCl [facility] 53938935611 500 MG Orally Active 1 tablet Twice a day with meals Atorvastatin [facility] 73084271594 40 MG Orally Active 1 tablet Calcium Once a day Results No Known Results Summary Purpose eClinicalWorks Submission
--- OUTSIDE RECORDS SUMMARY | 2019-02-14 19:13 | XMS REPORT ---
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 Problem HTN (hypertension), benign I10 Active Problem Seizures R56.9 Active Assessment HTN (hypertension), benign I10 Active Assessment Chronic pain disorder G89.4 Active Assessment Neuropathy G62.9 Active Assessment Seizures R56.9 Active Assessment Type 2 diabetes mellitus with other E11.69 Active specified complication Problem Coronary artery disease involving I25.709 Active coronary bypass graft of [place] heart with angina pectoris Assessment Depression with anxiety F41.8 Active Assessment Coronary artery disease involving I25.709 Active coronary bypass graft of [place] heart with angina pectoris Medications Medication Code Code Instructions Start End Status Dosage System Date Date Atorvastatin [facility] 33106502057 40 MG Orally Active 1 tablet Calcium Once a day Lexapro [facility] 92325592880 20 MG Orally Active 1 tablet Once a day Levetiracetam [facility] 77628756795 500 MG Orally Active 1 tablet Twice a day Metoprolol [facility] 27961394615 25 MG Orally Active 1 tablet Tartrate Twice a day with food Ranexa [facility] 86869598611 500 MG Orally Active 1 tablet Twice a day Klor-Con M10 [facility] 93148881857 10 MEQ Orally Active 1 tablet Twice a day with food Insulin Aspart [facility] [address]-79 (70-30) 100 Active 60 units Prot & Aspart UNIT/ML BID Subcutaneous Metformin HCl [facility] 03357786678 500 MG Orally Active 1 tablet Twice a day with meals Aspirin [facility] 80377976728 81 MG Orally Active 1 tablet Once a day Gabapentin [facility] 77765528297 800 MG Orally Active 1 tablet Three times a day Furosemide [facility] 91722028915 20 MG Orally Active 1 tablet Once a day Pantoprazole [facility] 33180085094 40 MG Orally Active 1 tablet Sodium Once a day Duloxetine HCl [facility] 06638411816 30 MG Orally Active 1 capsule Twice a day Xanax [facility] 85387943702 0.5 MG Orally Active 1 tablet Twice a day Clopidogrel [facility] 19969894861 75 MG Orally Active 1 tablet Bisulfate Once a day Results No Known Results Summary Purpose eClinicalWorks Submission
--- OUTSIDE RECORDS SUMMARY | 2019-02-14 19:13 | XMS REPORT ---
:1970 Author Organization [facility] Address [address] [place] [address] Care Team Providers Name Role Phone Unavailable Unavailable Unavailable Problems This patient has no known problems. Allergies, Adverse Reactions, Alerts This patient has no known allergies or adverse reactions. Medications This patient has no known medications.
--- OUTSIDE RECORDS SUMMARY | 2019-02-14 19:14 | XMS REPORT ---
[...] Problem Hx of CABG Z95.1 Active Problem nursing home current use of 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 Problem Dependent on wheelchair Z99.3 Active Problem Coronary artery disease involving I25.709 Active coronary bypass graft of [place] heart with angina pectoris Problem History of right above knee Z89.611 Active amputation Problem Chronic pain disorder G89.4 Active Problem History of CVA (cerebrovascular Z86.73 Active accident) Problem Migraine without aura and without G43.009 Active status migrainosus, not intractable Problem Neuropathy G62.9 Active Medications No Known Medications Results No Known Results Summary Purpose [place] Submission
--- OUTSIDE RECORDS SUMMARY | 2019-02-14 19:14 | XMS REPORT | Summary of Care ---
:1970 Author Organization [facility] Address [address] [place] [address] Care Team Providers Name Role Phone Fabby Meléndez Unavailable Dada Horan Primary Care Provider Reason for Visit Reason Comments Follow-up Diabetes Mellitus II Encounter Details Date Type Department Care Team Description 01/04/2019 Office Visit [facility] Anatoly Flores Type 2 diabetes Endocrinology- [address] [place] [address] Dr mellitus with [place] [address] diabetic peripheral [place] [address] angiopathy without Building [phone] gangrene, with [address] [place] [address] long-term current use [address] of insulin ([place]) [phone] Allergies Active Allergy Reactions Severity Noted Date Comments Ketorolac Tromethamine Hives 12/15/2016 Tramadol Hives 12/15/2016 documented as of this encounter (statuses as of 01/07/2019) Medications Medication Sig Dispensed Refills Start Date [...] (INSULIN SYRINGE) 1 mL 30 gauge x 5/16 SyrgIndications: Diabetes 1.5, managed as type 1 [...] as of this encounter (statuses as of 01/07/2019) Active Problems Problem Noted Date GARY (stress urinary incontinence, female) 02/02/2018 Overview: Added automatically from request for surgery [id number] GERD (gastroesophageal reflux disease) DM (diabetes mellitus) Depression CVA (cerebral vascular accident) CHF (congestive heart failure) Anxiety Angina pectoris H/O right coronary artery stent placement High cholesterol HTN (hypertension) Hx of CABG Migraines Seizures Unilateral AKA, right documented as of this encounter (statuses as of 01/07/2019) Social History Tobacco Use Types Packs/Day Years [...] of this encounter Last Filed Vital Signs Vital Sign Reading Time Taken Comments Blood Pressure 124/83 01/04/2019 2:51 PM CDT Pulse 79 01/04/2019 2:51 PM CDT Temperature - - Respiratory Rate 16 01/04/2019 2:51 PM CDT Oxygen Saturation - - Inhaled Oxygen Concentration - - Weight 76.2 kg (168 lb) 01/04/2019 2:51 PM CDT Height 162.6 cm (5' 4") 01/04/2019 2:51 PM CDT Body Mass Index 28.84 01/04/2019 2:51 PM CDT documented in this encounter Patient Instructions Patient InstructionsAnatoly Flores - 01/04/2019 2:30 PM CDTIt's hard to make a judgment about your hemoglobin A1c being 12.1%, because you have had multiple infections recently. Continue 70/30 insulin. Take 80 units twice daily. Take metformin 500 mg 2 pills in the morning, 2 pills in the evening. Salads are okay, as long as the dressing is low fat. You must improve your eating habits. Avoid fried and fatty foods. No sodas or fruit juices. Use canola or olive oil for cooking. Use whole wheat bread only, not white bread or honey wheat bread. Try to cook your meat in the oven. We will check your bloodwork today. documented in this encounter Progress Notes Anatoly Flores - 01/04/2019 2:30 PM CDT Chief Complaint Patient presents with Follow-up Diabetes Mellitus II Karen Shah is a 48 year old female here for type 2 diabetes complicated by AKA, hypertension, hyperlipidaemia, chronic pain. She is on 70/30 insulin 80 units twice daily, and metformin 500 mg twice daily. She has made some bigger efforts in avoiding excess carbs. It is still a struggle for her, as her family's food is equally poor. Her exercises are arm only. She sleeps most of the day because she is taking a narcotic for leg pain/phantom leg pain. Her good leg is clear from a vascular standpoint. She has retinopathy, saw her eye physician about a year ago. She has had repeated UTIs since the last visit. No blood glucose monitoring done; goes by symptoms only. Hypoglycaemia isn't a feature. For psych, she is on Lexapro, cymbalta, Xanax HISTORY Past Medical History: Diagnosis Date Angina pectoris Anxiety CHF (congestive heart failure) CVA (cerebral vascular accident) Depression DM (diabetes mellitus) GERD (gastroesophageal reflux disease) H/O right coronary artery stent placement High cholesterol HTN (hypertension) Hx of CABG Migraines Osteomyelitis Retinal detachment Right eye Seizures GARY (stress urinary incontinence, female) 02/02/2018 Unilateral AKA, right Past Surgical History: Procedure Laterality Date AMPUTATE LOWER LEG AT KNEE X 3 started with toes/right leg SECTION X 2 EYE SURGERY attached retina FL ANESTH,OPEN HEART SURGERY+PUMP X 2 TUBAL LIGATION Family History Problem Relation Age of Onset Diabetes Father type 2 Heart Father High cholesterol Father Hypertension Father Diabetes Son type 1 Hypertension Sister Asthma Paternal Grandmother Arthritis NoFHx defects NoFHx Breast Cancer NoFHx Colon Cancer NoFHx Ovarian Cancer NoFHx Uterine Cancer NoFHx Cancer NoFHx Depression NoFHx Genetic NoFHx Mental retardation NoFHx Neurological NoFHx Psychiatry NoFHx Osteoporosis NoFHx Family Status Relation Status Father Son Social History Socioeconomic History Marital status: Spouse name: Not on file Number of children: Not on file Years of education: Not on file Highest education level: Not on file Occupational History Comment: Disabled / Amput Social Needs Financial resource strain: Not on file Food insecurity: Worry: Not on file Inability: Not on file Transportation needs: Medical: Not on file Non-medical: Not on file Tobacco Use Smoking status: Current Every Day Smoker Packs/day: 0.75 Types: Cigarettes Smokeless tobacco: Never Used Tobacco comment: quit 2012 Substance and Sexual Activity Alcohol use: No Drug use: Yes Sexual activity: Yes Partners: Male control/protection: Surgical Lifestyle Physical activity: Days per week: Not on file Minutes per session: Not on file Stress: Not on file Relationships Social connections: Talks on phone: Not on file Gets together: Not on file Attends taoist service: Not on file Active member of club or organization: Not on file Attends meetings of clubs or organizations: Not on file Relationship status: Not on file Intimate partner violence: Fear of current or ex partner: Not on file Emotionally abused: Not on file Physically abused: Not on file Forced sexual activity: Not on file Other Topics Concern Not on file Social History Narrative No domestic abuse or violence. Congregational Preference ; none REVIEW OF SYSTEMS Constitutional: + fatigue Eyes: negative. Cardiovascular: negative. Respiratory: negative. Gastrointestinal: negative. Musculoskeletal: + weakness. Neuro: + pain. Endocrine: negative. PHYSICAL EXAM BP 124/83 (BP Location: Left arm, Patient Position: Sitting, BP CUFF SIZE: Adult Large) | Pulse 79| Resp 16 | Ht 5' 4" (1.626 m) | Wt 168 lb (76.2 kg) | BMI 28.84 kg/m General: alert, oriented times three, no apparent distress, appearing age appropriate. Eyes: anicteric sclera, pupils are equally round and reactive to light. Neck: neck supple, no adenopathy, no goiter, no bruits Lungs: good diaphragmatic excursion, lungs clear to auscultation bilaterally. Heart: regular rate and rhythm, no murmurs, gallops or rubs. Extremities/Musculoskeletal: right BKA. Sensory exam of the foot is abnormal. Monofilament exam with sensation Left: 0/ 5. Lesions and ulcersabsent. Peripheral pulses present 1+. rfo Component Latest Ref Rng & Units 12/15/2016 12/15/2016 6:35 PM 6:35 PM WBCx10~3 4.80 - 10.80 10*3/uL 6.80 RBCx10~6 4.10 - 5.30 10*6/uL 4.49 HGB 12.0 - 16.0 g/dL 13.5 HCT 37.0 - 47.0 % 39.9 MCH 27.0 - 31.0 pg 30.1 MCV 81.0 - 99.0 fL 89.0 MCHC 33.0 - 37.0 g/dL 33.9 RDW-CV 11.5 - 14.5 % 13.7 RDWSD 39.0 - 49.9 fL 42.4 PLTx10~3 130 - 400 10*3/uL 306 MPV 7.4 - 10.4 fL 8.7 GRAN MAT % 42.2 - 75.2 % 62.3 LYMPH% 20.5 - 51.1 % 25.7 MONO% 1.0 - 13.0 % 7.7 EOS% 0.0 - 7.0 % 2.8 BASO% 0.2 - 2.0 % 1.5 GRAN MAT#x10~3 2.20 - 4.80 10*3/uL 4.20 LYMP#x10~3 1.30 - 2.90 10*3/uL 1.80 MONO#x10~3 0.30 - 0.80 10*3/uL 0.50 EOS#x10~3 0.00 - 0.50 10*3/uL 0.20 BASO#x10~3 0.00 - 0.10 10*3/uL 0.10 NA 135 - 145 mmol/L 135 K 3.5 - 5.0 mmol/L 4.7 CL 98 - 108 mmol/L 101 CO2 TOTAL 23 - 31 mmol/L 23 AGAP 2 - 16 11 BUN 7 - 23 mg/dL 17 GLUCOSE 70 - 110 mg/dL 343 (H) CREATININE 0.50 - 1.04 mg/dL 1.00 TOTAL BILI 0.1 - 1.1 mg/dL 0.8 CALCIUM 8.6 - 10.6 mg/dL 8.1 (L) T PROTEIN 6.3 - 8.2 g/dL 8.1 ALBUMIN 3.5 - 5.0 g/dL 4.0 ALK PHOS 34 - 122 U/L 103 ALT(SGPT) 9 - 51 U/L 25 AST(SGOT) 13 - 40 U/L 34 eGFR CALCULATION (non ) mL/min/1.73m2 60.2 eGFR CALCULATION () mL/min/1.73m2 73.0 Component Latest Ref Rng & Units 12/15/2016 7:12 PM HGB A1C 4.0 - 6.0 % NGSP 11.3 (H) Recent Labs 08/31/18 [id number] 10.1* HGB A1C (% NGSP) Date Value 12/15/2016 11.3 (H) HbA1c 12.1% ASSESSMENT ICD-10-CM ICD-9-CM 1. Type 2 diabetes mellitus with diabetic peripheral angiopathy without gangrene , with long-term current use of insulin E11.51 250.70 Z79.4 443.81 V58.67 HbA1c has picked back up most likely due to her recurrent infections. PLAN Continue 70/30 insulin 80 units twice daily. Increase metformin to 2000 mg daily in divided doses. Educated patient on healthy eating plate. No orders of the defined types were placed in this encounter. documented in this encounter Plan of Treatment Date Type Specialty Care Team Description 02/04/2019 Office Visit Cardiology Lily Jenkins MD [address] [facility] [address] [place] [address] [phone] 03/25/2019 Office Visit Urology Rosalva Patel FNP [address] [facility] [address] [place] [address] [phone] 03/26/2019 Office Visit Family Medicine Dev Zavala MD [address] [place] [address] [phone] 05/10/2019 Office Visit Endocrinology Diabetes & Anatoly Flores Metabolism [address] [facility] [address] [facility] [address] [place], [place] [address] 10/07/2019 Office Visit Obstetrics & Gynecology Muna Weeks PA-C [address] [address] [place] [phone] Health Maintenance Due Date Last Done Comments PNEUMOCOCCAL 0-64 YEARS COMBINED 1978 SERIES (1 of 1 - PPSV23) EYE EXAM 1982 LDL-C 1982 DTaP,Tdap,and Td Vaccines (1 - 1991 Tdap) MAMMOGRAM 11/06/2018 11/06/2017 INFLUENZA VACCINE 01/27/2019 HgA1C 03/02/2019 08/31/2018, 04/27/2018, 12/01/2017, Additional history exists URINE MICROALBUMIN 09/01/2019 08/31/2018, 05/19/2017 CREATININE (SERUM) 10/29/2019 10/28/2018, 08/31/2018, 12/15/2016 FOOT EXAM 01/05/2020 01/04/2019, 01/04/2019, 08/31/2018, Additional history exists PAP SMEAR 09/25/2020 09/25/2017 documented as of this encounter Results Not on filedocumented in this encounter Visit Diagnoses Diagnosis Type 2 diabetes mellitus with diabetic peripheral angiopathy without gangrene, with long-term current use of insulin - Primary documented in this encounter Insurance Payer Benefit Plan / Subscriber ID Effective Dates Phone Address Type Group MEDICARE MEDICARE PART xxxxxxxxxxx 2017-Justin [phone] Medicare A & B nt 2 [id number] [place] [id number] documented as of this encounter
--- OUTSIDE RECORDS SUMMARY | 2019-02-14 19:14 | XMS REPORT | Summary of Care ---
:1970 Author Organization [facility] - Health Address [address] [place] [address] Care Team Providers Name Role Phone Fabby Meléndez Unavailable Dada Horan Primary Care Provider Encounter Details Date Type Department Care Team Description 01/04/2019 Orders Only [facility] Doctor Unassigned, No [address] [facility] [place] [address] [address] [place] [address] Allergies Active Allergy Reactions Severity Noted Date Comments Ketorolac Tromethamine Hives 12/15/2016 Tramadol Hives 12/15/2016 documented as of this encounter (statuses as of 01/04/2019) Medications Medication Sig Dispensed Refills Start Date [...] as of this encounter (statuses as of 01/04/2019) Active Problems Problem Noted Date GARY (stress urinary incontinence, female) 02/02/2018 Overview: Added automatically from request for surgery [id number] GERD (gastroesophageal reflux disease) DM (diabetes mellitus) Depression CVA (cerebral vascular accident) CHF (congestive heart failure) Anxiety Angina pectoris H/O right coronary artery stent placement High cholesterol HTN (hypertension) Hx of CABG Migraines Seizures Unilateral AKA, right documented as of this encounter (statuses as of 01/04/2019) Social History Tobacco Use Types Packs/Day Years [...] Visit Endocrinology Diabetes & Anatoly Flores Metabolism [address] [place] [address] [facility] [address] [place], [place] [address] 02/04/2019 Office Visit Cardiology Lily Jenkins MD [address] [facility] [address] [place], [place] [address] 03/25/2019 Office Visit Urology Rosalva Patel FNP [address] [facility] [address] [facility] [address] [place] [address] [phone] 03/26/2019 Office Visit Family Medicine Dev Zavala MD [address] [place] [address] [place] [phone] 10/07/2019 Office Visit Obstetrics & Gynecology Muna Weeks PA-C [address] [place] [address] [address] [place] [address] [phone] Health Maintenance Due Date Last Done Comments [...] Procedure Name Priority Date/Time Associated Diagnosis Comments NO SHOW OR MISSED Routine 01/04/2019 2:28 PM APPOINTMENT POLICY CDT ACKNOWLEDGEMENT documented in this encounter Results Not on filedocumented in this encounter Insurance Payer Benefit Plan / Subscriber ID Effective Dates Phone Address Type Group MEDICARE MEDICARE PART xxxxxxxxxxx 2017-Justin [phone] Medicare A & B nt 2 [id number] [place] [phone] documented as of this encounter
--- OUTSIDE RECORDS SUMMARY | 2019-02-14 19:14 | XMS REPORT ---
[...] Problem Hx of CABG Z95.1 Active Problem alf current use of 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 Problem Dependent on wheelchair Z99.3 Active Problem Coronary artery disease involving I25.709 Active coronary bypass graft of [place] heart with angina pectoris Problem History of right above knee Z89.611 Active amputation Problem Chronic pain disorder G89.4 Active Problem History of CVA (cerebrovascular Z86.73 Active accident) Problem Migraine without aura and without G43.009 Active status migrainosus, not intractable Problem Neuropathy G62.9 Active Medications No Known Medications Results No Known Results Summary Purpose [employer] Submission
--- OUTSIDE RECORDS SUMMARY | 2019-02-14 19:14 | XMS REPORT ---
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 of 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 Problem Chronic pain disorder G89.4 Active Problem History of CVA (cerebrovascular Z86.73 Active accident) Problem Migraine without aura and without G43.009 Active status migrainosus, not intractable Problem Neuropathy G62.9 Active Assessment Depression with anxiety F41.8 Active Assessment Coronary artery disease involving I25.709 Active coronary bypass graft of red devil heart with angina pectoris Assessment HTN (hypertension), benign I10 Active Assessment Chronic pain disorder G89.4 Active Problem Type 2 diabetes mellitus with other E11.69 Active specified complication Problem Type 2 diabetes mellitus with E11.65 Active hyperglycemia Assessment Type 2 diabetes mellitus with other E11.69 Active specified complication Medications Medication Code Code Instructions Start End Status Dosage System Date Date Metformin HCl [facility] 66642437167 500 MG Orally Active 1 tablet Twice a day with meals Pantoprazole [facility] 02111880295 40 MG Orally Active 1 tablet Sodium Once a day Klor-Con M10 [facility] 20611110464 10 MEQ Orally Active 1 tablet Twice a day with food Xanax [facility] 81648343454 0.5 MG Orally Inactive 1 tablet Twice a day Ranexa [facility] 24884844967 500 MG Orally Active 1 tablet Twice a day Duloxetine HCl [facility] 02504703023 30 MG Orally Active 1 capsule Twice a day Levetiracetam [facility] 33720657308 500 MG Orally Active 1 tablet Twice a day Clopidogrel [facility] 71768591672 75 MG Orally Active 1 tablet Bisulfate Once a day [place] [facility] 50832808467 7.5-325 MG Active 1 tablet Orally every 12 as needed hrs Aspirin [facility] 76084681584 81 MG Orally Active 1 tablet Once a day Lexapro [facility] 42414248968 20MG Orally Active 1 tablet Once a day Gabapentin [facility] 64064491340 800 MG Orally Active 1 tablet Three times a day Atorvastatin [facility] 89256121658 40 MG Orally Active 1 tablet Calcium Once a day Metoprolol [facility] 06258708649 25 MG Orally Active 1 tablet Tartrate Twice a day with food Insulin Aspart [facility] [address]-97 (70-30) 100 Active 60 units Prot & Aspart UNIT/ML BID Subcutaneous Atorvastatin [facility] 72414186020 40 MG Orally Active 1 tablet Calcium Once a day Clopidogrel [facility] 95342735949 75MG Orally Active 1 tablet Bisulfate Once a day Furosemide [facility] 35651970402 20 MG Orally Active 1 tablet Once a day Lexapro [facility] 08666586464 20 MG Orally Active 1 tablet Once a day Duloxetine HCl [facility] 33100835789 30 MG Orally Active 1 capsule Twice a day Furosemide [facility] 37973741167 20 MG Orally Active 1 tablet Once a day Results No Known Results Summary Purpose [employer] Submission
--- OUTSIDE RECORDS SUMMARY | 2019-02-14 19:14 | XMS REPORT ---
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
--- OUTSIDE RECORDS SUMMARY | 2019-02-14 19:15 | XMS REPORT | Summary of Care ---
:1970 Author Organization [facility] - Health Address [address] [place] [address] Care Team Providers Name Role Phone Fabby Meléndez Unavailable Dada Horan Primary Care Provider Encounter Details Date Type Department Care Team Description 12/06/2018 Orders Only [facility] Doctor Unassigned, No [address] [facility] [address] [address] [place] [address] Allergies Active Allergy Reactions Severity Noted Date Comments Ketorolac Tromethamine Hives 12/15/2016 Tramadol Hives 12/15/2016 documented as of this encounter (statuses as of 02/03/2019) Medications Medication Sig Dispensed Refills Start Date [...] as of this encounter (statuses as of 02/03/2019) Active Problems Problem Noted Date GARY (stress urinary incontinence, female) 02/02/2018 Overview: Added automatically from request for surgery [id number] GERD (gastroesophageal reflux disease) DM (diabetes mellitus) Depression CVA (cerebral vascular accident) CHF (congestive heart failure) Anxiety Angina pectoris H/O right coronary artery stent placement High cholesterol HTN (hypertension) Hx of CABG Migraines Seizures Unilateral AKA, right documented as of this encounter (statuses as of 02/03/2019) Social History Tobacco Use Types Packs/Day Years [...] Office Visit Cardiology Lily Jenkins MD [address] [facility] [address] [place], [place] [address] 03/25/2019 Office Visit Urology Rosalva Patel FNP [address] [facility] [address] [place], [place] [address] 03/26/2019 Office Visit Family Medicine Dev Zavala MD [address] [place] [address] [place] [phone] 05/10/2019 Office Visit Endocrinology Diabetes & Anatoly Flores Metabolism [address] [place] [address] [phone] 10/07/2019 Office Visit Obstetrics & Gynecology Muna Weeks PA-C [address] [place] [phone] Health Maintenance Due Date Last Done Comments PNEUMOCOCCAL 0-64 YEARS COMBINED 1978 SERIES (1 of 1 - PPSV23) EYE EXAM 1982 LDL-C 1982 DTaP,Tdap,and Td Vaccines (1 - 1991 Tdap) MAMMOGRAM 11/06/2018 11/06/2017 INFLUENZA VACCINE (#1) 2019 HgA1C 03/02/2019 08/31/2018, 04/27/2018, 12/01/2017, Additional history exists URINE MICROALBUMIN 09/01/2019 08/31/2018, 05/19/2017 CREATININE (SERUM) 10/29/2019 10/28/2018, 08/31/2018, 12/15/2016 FOOT EXAM 01/05/2020 01/04/2019, 01/04/2019, 08/31/2018, Additional history exists PAP SMEAR 09/25/2020 09/25/2017 documented as of this encounter Procedures Procedure Name Priority Date/Time Associated Diagnosis Comments PATIENT CORRESPONDENCE Routine 12/06/2018 12:01 AM (LETTERS, USPS CDT DOCUMENTATION) documented in this encounter Results Not on filedocumented in this encounter Insurance Payer Benefit Plan / Subscriber ID Effective Dates Phone Address Type Group MEDICARE MEDICARE PART xxxxxxxxxxx 2017-Justin [phone] Medicare A & B nt 2 [id number] [place] [id number] documented as of this encounter
--- OUTSIDE RECORDS SUMMARY | 2019-02-14 19:15 | XMS REPORT | Summary of Care ---
:1970 Author Organization [facility] Address [address] [place] [address] Care Team Providers Name Role Phone Fabby Meléndez Unavailable Dada Horan Primary Care Provider Reason for Referral Radiology Services (Routine) Status Reason Specialty Diagnoses / Referred By Referred To Procedures Contact Contact New Request Diagnostic Diagnoses Coronary artery disease involving qawalangin coronary artery of qawalangin heart without angina pectoris Other chest pain Lily Jenkins, Radiology Procedures NM MYOCARDIUM PERFUSION STRESS AND REST [address] [place] [address] [address] [place] [address] Reason for Visit Reason Comments Follow-up 6mo Ekg Done today in Office Encounter Details Date Type Department Care Team Description 02/04/2019 Office Visit [facility] Lily Jenkins MD Other chest pain (Primary Dx); Cardiology- [address] Coronary artery disease involving qawalangin coronary artery of qawalangin heart without angina pectoris; [address] [place] [address] PAD (peripheral artery disease); [facility], [address] (HFpEF) heart failure with preserved ejection fraction [place], [place] [phone] Allergies Active Allergy Reactions Severity Noted Date Comments Ketorolac Tromethamine Hives 12/15/2016 Tramadol Hives 12/15/2016 documented as of this encounter (statuses as of 02/04/2019) Medications Medication Sig Dispensed Refills Start Date End Date Status POTASSIUM CHLORIDE Take 1 tablet 0 Active (KLOR-CON 10 ORAL) by mouth daily. pantoprazole 40 mg Take 40 mg by 0 Active EC tablet mouth daily. aspirin (ASPIRIN LOW Take 81 mg by 0 Active DOSE) 81 mg EC mouth daily. tablet Insulin Use as 180 Syringe 3 08/25/2017 Active Syringe-Needle U-100 directed (INSULIN SYRINGE) 1 mL 30 gauge x 5/16 SyrgIndications: Diabetes 1.5, managed as type 1 HYDROcodone-acetamin Take 1 tablet 20 tablet 0 02/26/2018 Active ophen 7.5-325 mg per by mouth 2 tablet (two) times daily. gabapentin 800 mg Take 1 tablet 270 tablet 2 08/31/2018 Active tabletIndications: by mouth 3 Neuropathy (three) times daily. metFORMIN 500 mg Take 2 tablets 360 tablet 3 08/31/2018 Active tablet by mouth 2 (two) times daily with meals. You can do two pills in the morning and one in the evening. insulin NPH and inject 80 6 Vial 3 08/31/2018 Active regular human 70-30 Units under (NOVOLIN 70/30 U-100 the skin 2 INSULIN) 100 unit/mL (two) times (70-30) injection daily before breakfast and dinner. Nitrofurantoin&Nit. Take 1 capsule 30 capsule 2 09/20/2018 Active Macrocryst by mouth (MACROBID) 100 mg daily. capsuleIndications: Recurrent UTI escitalopram oxalate 2 09/01/2018 Active 20 mg tablet levETIRAcetam 500 mg 2 09/01/2018 Active tablet sulfamethoxazole-tri 0 09/18/2018 Active methoprim 800-160 mg per tablet phenazopyridine 200 Take 1 tablet 9 tablet 0 10/28/2018 Active mg by mouth 3 tabletIndications: (three) times Recurrent UTI daily. atorvastatin Take 1 tablet 90 tablet 1 11/30/2018 Active (LIPITOR) 40 mg by mouth at tabletIndications: bedtime. High cholesterol DULoxetine 30 mg Take 1 capsule 90 capsule 1 11/30/2018 Active capsuleIndications: by mouth Anxiety and daily. depression clopidogrel (PLAVIX) Take 1 tablet 90 tablet 1 11/30/2018 Active 75 mg by mouth tabletIndications: daily. H/O right coronary artery stent placement furosemide (LASIX) Take 1 tablet 90 tablet 1 11/30/2018 Active 20 mg by mouth tabletIndications: daily. Congestive heart failure, unspecified HF chronicity, unspecified heart failure type isosorbide Take 1 tablet 90 tablet 1 11/30/2018 Active mononitrate 30 mg 24 by mouth hr daily. tabletIndications: H/O right coronary artery stent placement metoprolol tartrate Take 1 tablet 90 tablet 1 11/30/2018 Active 25 mg by mouth tabletIndications: daily. Essential hypertension fluconazole Take 1 tablet 6 tablet 1 11/30/2018 Active (DIFLUCAN) 150 mg by mouth tabletIndications: SEE-INSTRUCTIO Recurrent UTI NS. 1 PO weekly/PRN yeast infection escitalopram oxalate Take 1 tablet 30 tablet 5 09/25/2018 02/05/20 Discontinued (LEXAPRO) 10 mg by mouth 19 tabletIndications: daily. Anxiety and depression levoFLOXacin 500 mg 0 09/18/2018 02/05/20 Discontinued tablet 19 miSOPROStol 200 mcg Take one 2 tablet 0 10/05/2018 02/05/20 Discontinued tabletIndications: tablet the 19 Dysmenorrhea night before procedure, take one table the morning of procedure. documented as of this encounter (statuses as of 02/04/2019) Active Problems Problem Noted Date GARY (stress urinary incontinence, female) 02/02/2018 Overview: Added automatically from request for surgery [id number] GERD (gastroesophageal reflux disease) DM (diabetes mellitus) Depression CVA (cerebral vascular accident) CHF (congestive heart failure) Anxiety Angina pectoris H/O right coronary artery stent placement High cholesterol HTN (hypertension) Hx of CABG Migraines Seizures Unilateral AKA, right documented as of this encounter (statuses as of 02/04/2019) Social History Tobacco Use Types Packs/Day Years [...] Sign Reading Time Taken Comments Blood Pressure 117/83 02/04/2019 10:08 AM CDT Pulse 80 02/04/2019 10:08 AM CDT Temperature - - Respiratory Rate 20 02/04/2019 10:08 AM CDT Oxygen Saturation 99% 02/04/2019 10:08 AM CDT Inhaled Oxygen Concentration - - Weight - - Height 162.6 cm (5' 4") 02/04/2019 10:08 AM CDT Body Mass Index - - documented in this encounter Progress Notes Lily Jenkins MD - 02/04/2019 10:20 AM CDT CARDIOLOGY CLINIC NOTE 02/04/2019 Reason for Referral/Presenting Complaint: CAD, PAD PCP: Dada Horan History of Present Illness: Karen Shah is a 48 years old female with history of obesity, IDDM, CAD s/ p CABG and PCI, h/o stroke, and PAD s/p R leg above the knee amputation. At age of 42 she had NH and underwent CABG x 3. At age of 45 she had another NH and underwent redo CABG x 2. In 2014 she underwent PCI to RCA. Nuclearstress test in 2016 showed anterior ischemia. Has been having chest pain a few times a month. It occurs randomly not necessarily during exertion. It is precordial pain radiating to the back, relieved by NTG in 5 mins. Sometimes has chest pain at night. Has been SOB. She does not ambulate due to imbalance. ECHO in 06/2016 showed 45-50%. Left foot pain at night. Last visit we added Imdur. Her chest pain has improved. HOWARD is normal. Arterial duplex showed some PAD but no revascularizable lesions. She was admitted to [facility] for genital area infection. Has chest pain at that time too. Review of Systems: General: (-) fever, (-) chills, (-) weight change, (-) dizziness, (-) fatigue Skin: (-) rash HEENT: (-) headache, (-) change in vision Neck: (-) difficulty swallowing Heme: negative Resp: (-) cough, (-) dyspnea on exertion Cardio: (+) chest pain, (-) palpitations, (-) syncope GI: (-) vomiting, (-) diarrhea : negative Endo: (+) diabetes, (-) thyroid disease Neuro: (-) numbness, (-) tingling, (-) weakness Back: (-) pain YESSI: (-) muscle pain, (+) claudication Psych: (-) anxiety, (-) depression Past Medical History: Past Medical History: Diagnosis Date Angina pectoris Anxiety CHF (congestive heart failure) CVA (cerebral vascular accident) Depression DM (diabetes mellitus) GERD (gastroesophageal reflux disease) H/O right coronary artery stent placement High cholesterol HTN (hypertension) Hx of CABG Migraines Osteomyelitis Retinal detachment Right eye Seizures GARY (stress urinary incontinence, female) 02/02/2018 Unilateral AKA, right Current Medications: Current Outpatient Medications Medication Sig Dispense Refill atorvastatin (LIPITOR) 40 mg tablet Take 1 tablet by mouth at bedtime. 90 tablet 1 clopidogrel (PLAVIX) 75 mg tablet Take 1 tablet by mouth daily. 90 tablet 1 DULoxetine 30 mg capsule Take 1 capsule by mouth daily. 90 capsule 1 fluconazole (DIFLUCAN) 150 mg tablet Take 1 tablet by mouth SEE- INSTRUCTIONS. 1 PO weekly/PRN yeast infection 6 tablet 1 furosemide (LASIX) 20 mg tablet Take 1 tablet by mouth daily. 90 tablet 1 isosorbide mononitrate 30 mg 24 hr tablet Take 1 tablet by mouth daily. 90 tablet 1 metoprolol tartrate 25 mg tablet Take 1 tablet by mouth daily. 90 tablet 1 escitalopram oxalate 20 mg tablet 2 levETIRAcetam 500 mg tablet 2 sulfamethoxazole-trimethoprim 800-160 mg per tablet 0 gabapentin 800 mg tablet Take 1 tablet by mouth 3 (three) times daily. 270 tablet 2 insulin NPH and regular human 70-30 (NOVOLIN 70/30 U-100 INSULIN) 100 unit/ mL (70-30) injection inject 80 Units under the skin 2 (two) times daily before breakfast and dinner. 6 Vial 3 metFORMIN 500 mg tablet Take 2 tablets by mouth 2 (two) times daily with meals. You can do two pills in the morning and one in the evening. 360 tablet 3 HYDROcodone-acetaminophen 7.5-325 mg per tablet Take 1 tablet by mouth 2 ( two) times daily. 20 tablet 0 Insulin Syringe-Needle U-100 (INSULIN SYRINGE) 1 mL 30 gauge x 5/16 Syrg Use as directed 180 Syringe 3 aspirin (ASPIRIN LOW DOSE) 81 mg EC tablet Take 81 mg by mouth daily. pantoprazole 40 mg EC tablet Take 40 mg by mouth daily. POTASSIUM CHLORIDE (KLOR-CON 10 ORAL) Take 1 tablet by mouth daily. phenazopyridine 200 mg tablet Take 1 tablet by mouth 3 (three) times daily. 9 tablet 0 Nitrofurantoin&Nit. Macrocryst (MACROBID) 100 mg capsule Take 1 capsule by mouth daily. 30 capsule 2 No current facility-administered medications for this visit. Social History: Social History Socioeconomic History Marital status: Spouse [...] file Gets together: Not on file Attends episcopalian service: Not on file Active member of [...] History Narrative No domestic abuse or violence. Zoroastrianism Preference ; none Family History Family History Problem Relation Age of Onset Diabetes Father type 2 Heart Father High cholesterol Father Hypertension Father Diabetes Son type 1 Hypertension Sister Asthma Paternal Grandmother Arthritis NoFHx defects NoFHx Breast Cancer NoFHx Colon Cancer NoFHx Ovarian Cancer NoFHx Uterine Cancer NoFHx Cancer NoFHx Depression NoFHx Genetic NoFHx Mental retardation NoFHx Neurological NoFHx Psychiatry NoFHx Osteoporosis NoFHx Physical Examination: BP 117/83 (BP Location: Left arm, Patient Position: Sitting, BP CUFF SIZE: Adult Small) | Pulse 80| Resp 20 | Ht 5' 4" (1.626 m) | SpO2 99% | BMI 28.84 kg/m Constitutional: alert and oriented x 3 (person, place and date/time); no apparent distress ENT: normocephalic atraumatic, supple, no lymphadenopathy, no bruits, no JVD Lungs: clear to auscultation bilaterally Cardiovascular: S1, S2 normal, regular; no murmurs, rubs or gallops GI: soft; non-tender; non-distended; normoactive bowel sounds : not examined Musculoskeletal: Extremities: no clubbing, cyanosis, or edema Skin: no rashes Neuro: no focal deficits Cardiovascular testing: EKG: Normal sinus rhythm. Cannot rule out anterior NH 02/04/2019 ---reviewed by me---EKG: Normal sinus rhythm. Cannot rule out anterior NH Echocardiogram: 2017--LVEF 45-50% 2018--Normal LVEF Stress Test: 2016 nuclear stress test--anterior ischemia HOWARD--Normal. Arterial duplex--Collaterals. Reduced velocity. Mild disease, etc. Assessment/Plan: ICD-10-CM ICD-9-CM 1. Other chest pain R07.89 786.59 2. Coronary artery disease involving qawalangin coronary artery of qawalangin heart without angina pectoris I25.10 414.01 3. PAD (peripheral artery disease) I73.9 443.9 4. (HFpEF) heart failure with preserved ejection fraction I50.30 428.9 Chest pain--Atypical but with significant cardiac history. Abnormal nuc stress test in 2016. Will repeat Lexiscan nuclear stress test to assess ischemia. CAD--NH x 2. S/p CABG and redo CABG. S/p PCI. Nuclear stress test in 2016 showed anterior ischemia. Uncertain if intervention done? Off ranexa. Continue ASA/plavix/lipitor/metoprolol/Imdur. HFpEF--Volume status is good. On lasix. LVEF normal. No significant symptoms. PAD--No intervention needed per vascular testing. DM--Uncontrolled. On insulin. HLD--Goal LDL <70. High intensity lipitor. Patient was counseled for lifestyle modifications including: diet, weight loss and smoking cessation. RTC 6 months Lily Jenkins MD, FAC, LUCIO Pricing Strategist, Division of Cardiology [facility] documented in this encounter Plan of Treatment Date Type Specialty Care Team Description 03/25/2019 Office Visit Urology Rosalva Patel, [employer] [address] [id number] 03/26/2019 Office Visit Family Medicine Dev Zavala MD [address] [place] [address] [place] [phone] 05/10/2019 Office Visit Endocrinology Diabetes & Anatoly Flores Metabolism [address] [place] [address] Dr [facility] [address] [place], [place] [phone] 08/05/2019 Office Visit Cardiology Lily Jenkins MD [address] [place] [address] [address] [place], [place] [phone] 10/07/2019 Office Visit Obstetrics & Gynecology Muna Weeks PA-C [address] [place] [address] [address] [place] [address] Name Type Priority Associated Diagnoses Order Schedule EKG-12 LEAD ROUTINE HEART STATION Routine Coronary artery Ordered: 2018 disease involving qawalangin coronary artery of qawalangin heart without angina pectoris NM MYOCARDIUM IMAGING Routine Coronary artery Expected: PERFUSION STRESS AND disease involving 02/18/2019, REST qawalangin coronary Expires: 02/05/2020 artery of qawalangin heart without angina pectoris Other chest pain Health Maintenance Due Date Last Done Comments [...] filedocumented in this encounter Visit Diagnoses Diagnosis Other chest pain - Primary Coronary artery disease involving qawalangin coronary artery of qawalangin heart without angina pectoris PAD (peripheral artery disease) Unspecified disorders of arteries and arterioles (HFpEF) heart failure with preserved ejection fraction documented in this encounter Insurance Payer Benefit Plan / Subscriber ID Effective Dates Phone Address Type Group MEDICARE MEDICARE PART xxxxxxxxxxx 2017-Justin [phone] [address] Medicare A & B 2 [id number] [place] [id number] documented as of this encounter
--- OUTSIDE RECORDS SUMMARY | 2019-02-14 19:15 | XMS REPORT | Summary of Care ---
:1970 Author Organization [facility] - Health Address [address] [place] [address] Care Team Providers Name Role Phone Fabby Meléndez Unavailable Dada Horan Primary Care Provider Encounter Details Date Type Department Care Team Description 02/04/2019 Orders Only [facility] Doctor Unassigned, No [address] [facility] [place] [address] [address] [place] [address] Allergies Active Allergy Reactions Severity Noted Date [...] Overview: Added automatically from request for surgery [id number] GERD (gastroesophageal reflux disease) DM (diabetes mellitus) [...] Office Visit Cardiology Lily Jenkins MD 146 [facility] [address] [place], [place] [address] 03/25/2019 Office Visit Urology Rosalva Patel FNP 146 [facility] [address] [place], [place] [address] 03/26/2019 Office Visit Family Medicine Dev Zavala MD [address] [place] [address] [place] [phone] 05/10/2019 Office Visit Endocrinology Diabetes & Anatoly Flores Metabolism [address] [place] [phone] 10/07/2019 Office Visit Obstetrics & Gynecology Muna Weeks PA-C [address] [place] [phone] Health Maintenance Due Date Last Done Comments [...] Procedure Name Priority Date/Time Associated Diagnosis Comments NOTICE OF BILLING Routine 02/04/2019 9:40 AM CDT [facility] FOR MEDICARE PATIENTS documented in this encounter Results Not on filedocumented in this encounter Insurance Payer Benefit Plan / Subscriber ID Effective Dates Phone Address Type Group MEDICARE MEDICARE PART xxxxxxxxxxx 2017-Justin [phone] [address] Medicare A & B nt 2 [id number] [place] [id number] documented as of this encounter
--- OUTSIDE RECORDS SUMMARY | 2019-02-14 19:15 | XMS REPORT | Summary of Care ---
:1970 Author Organization [facility] Address [address] [place] [address] Care Team Providers Name Role Phone Fabby Meléndez Unavailable Dada Horan Primary Care Provider Reason for Visit Reason Comments Follow-up Diabetes Mellitus II Encounter Details Date Type Department Care Team Description 01/04/2019 Office Visit [facility] Anatoly Flores Type 2 diabetes Endocrinology- [address] [place] [address] Dr mellitus with [place] Ziyad [address] diabetic peripheral [place] [address] angiopathy without Building [phone] gangrene, with [address] [place] [address] long-term current use [address] of insulin (Primary [place], [place] Dx) [phone] Allergies Active Allergy Reactions [...] Overview: Added automatically from request for surgery [id number] GERD (gastroesophageal reflux disease) DM (diabetes mellitus) [...] SECTION X 2 EYE SURGERY attached retina [facility] ANESTH,OPEN HEART SURGERY+PUMP X 2 TUBAL LIGATION [...] file Gets together: Not on file Attends evangelical service: Not on file Active member of [...] History Narrative No domestic abuse or violence. Adventism Preference ; none REVIEW OF SYSTEMS Constitutional: [...] % NGSP 11.3 (H) Recent Labs 08/31/18 [id number] 10.1* HGB A1C (% NGSP) Date Value [...] Visit Cardiology Lily Jenkins MD 146 [facility] [address] [place] [address] [phone] 03/25/2019 Office Visit Urology Rosalva Patel FNP 146 [facility] [address] [place] [address] [phone] 03/26/2019 Office Visit Family Medicine Dev Zavala MD [address] [place] [phone] 05/10/2019 Office Visit Endocrinology Diabetes & Anatoly Flores Metabolism [address] [facility] [address] [facility] [address] [place], [place] [address] 10/07/2019 Office Visit Obstetrics & Gynecology Muna Weeks PA-C [address] [facility] [address] [place] [phone] Health Maintenance Due Date Last Done Comments [...] BOX Medicare A & B nt 2 [id number] [place] [phone] documented as of this encounter
--- OUTSIDE RECORDS SUMMARY | 2019-02-14 19:16 | XMS REPORT | Summary of Care ---
:[address] [facility] Address [address] [place] [address] Care Team Providers Name Role Phone Fabby Meléndez Unavailable Dada Horan Primary Care Provider Reason for Referral Radiology Services (Routine) Status Reason Specialty Diagnoses / Referred By Referred To Procedures Contact Contact New Request Diagnostic Diagnoses Coronary artery disease involving deering coronary artery of deering heart without angina pectoris Other chest pain Lily Jenkins, Radiology Procedures NM MYOCARDIUM PERFUSION STRESS AND REST [address] [place] [address] [address] [place] [address] Reason for Visit Reason Comments Follow-up 6mo Ekg Done today in Office Encounter Details Date Type Department Care Team Description 02/04/2019 Office Visit [facility] Lily Jenkins MD Other chest pain (Primary Dx); Cardiology- [address] Coronary artery disease involving deering coronary artery of deering heart without angina pectoris; [address] [place] [address] PAD (peripheral artery disease); [facility], [address] (HFpEF) heart failure with preserved ejection fraction [place], [place] [phone] Allergies Active Allergy Reactions Severity Noted [...] Overview: Added automatically from request for surgery [id number] GERD (gastroesophageal reflux disease) DM (diabetes mellitus) [...] amputation. At age of 42 she had AR and underwent CABG x 3. At age of 45 she had another AR and underwent redo CABG x 2. In [...] no revascularizable lesions. She was admitted to [facility] for genital area infection. Has chest pain [...] file Gets together: Not on file Attends quaker service: Not on file Active member of [...] History Narrative No domestic abuse or violence. Anglican Preference ; none Family History Family History [...] Normal sinus rhythm. Cannot rule out anterior AR 02/04/2019 ---reviewed by me---EKG: Normal sinus rhythm. Cannot rule out anterior AR Echocardiogram: 2017--LVEF 45-50% 2018--Normal LVEF Stress Test: 2016 nuclear stress test--anterior ischemia HOWARD--Normal. Arterial duplex--Collaterals. Reduced velocity. Mild disease, etc. Assessment/Plan: ICD-10-CM ICD-9-CM 1. Other chest pain R07.89 786.59 2. Coronary artery disease involving deering coronary artery of deering heart without angina pectoris I25.10 414.01 3. PAD (peripheral artery disease) I73.9 443.9 4. (HFpEF) heart failure with preserved ejection fraction I50.30 428.9 Chest pain--Atypical but with significant cardiac history. Abnormal nuc stress test in 2016. Will repeat Lexiscan nuclear stress test to assess ischemia. CAD--AR x 2. S/p CABG and redo CABG. [...] 6 months Lily Jenkins MD, FAC, LUCIO Airline Lounge Receptionist, Division of Cardiology [facility] documented in this encounter Plan of Treatment Date Type Specialty Care Team Description 03/25/2019 Office Visit Urology Rosalva Patel, ROLL FILLER [address] [address] 03/26/2019 Office Visit Family Medicine Dev Zavala MD [address] [place] [address] [place] [phone] 05/10/2019 Office Visit Endocrinology Diabetes & Anatoly Flores Metabolism [address] [place] [address] Dr [facility] 208 [place], [place] [phone] 08/05/2019 Office Visit Cardiology Lily Jenkins MD [address] [place] [address] [address] [place], [place] [phone] 10/07/2019 Office Visit Obstetrics & Gynecology Muna Weeks PA-C [address] [place] [address] [address] [place] [address] Name Type Priority Associated Diagnoses Order Schedule EKG-12 LEAD ROUTINE HEART STATION Routine Coronary artery Ordered: 2018 disease involving deering coronary artery of deering heart without angina pectoris NM MYOCARDIUM IMAGING Routine Coronary artery Expected: PERFUSION STRESS AND disease involving 02/18/2019, REST deering coronary Expires: 02/05/2020 artery of deering heart without angina pectoris Other chest pain [...] pain - Primary Coronary artery disease involving deering coronary artery of deering heart without angina pectoris PAD (peripheral artery disease) Unspecified disorders of arteries and arterioles (HFpEF) heart failure with preserved ejection fraction documented in this encounter Insurance Payer Benefit Plan / Subscriber ID Effective Dates Phone Address Type Group MEDICARE MEDICARE PART xxxxxxxxxxx 2017-Justin [phone] [address] Medicare A & B 2 [id number] [place] [id number] documented as of this encounter
[2019-02-14] MEDS ORDERED: MAGNE/ALUM HYDROXD 30 ML UCUP ONE (20:21)
[2019-02-14] MEDS ORDERED: LIDOCAINE VISCOUS 2% SOLN 15 ML UDC ONE (20:22)
--- NOTE | 2019-02-14 20:45 | EDPHYS ---
Physician Documentation [facility] Name: Karen Shah Age: 48 yrs Sex: Female : 1970 Arrival Date: 02/14/2019 Time: 19:15 Bed 13 Private MD: ED Physician Anatoly Ryan HPI: 02/14 20:43 This 48 yrs old Female presents to ER via Wheelchair with complaints of Sore kb Throat, Cough. 20:43 The patient presents with sore throat. The patient describes throat pain as constant. kb Onset: The symptoms/episode began/occurred yesterday. Severity of symptoms: At their worst the symptoms were moderate, in the emergency department the symptoms are unchanged. Modifying factors: The symptoms are alleviated by nothing, the symptoms are aggravated by swallowing, Patient's oral intake status: good Denies contact with similarly ill indivduals. Associated signs and symptoms: Pertinent positives: Sore throat Pertinent negatives chest pain, chills, cough, diarrhea, dysphagia, earache, fever, flu-like symptoms, headache, nausea, rhinorrhea, shortness of breath, vomiting. The patient has not experienced similar symptoms in the past. The patient has not recently seen a physician. 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 - Social history:: Smoking status: Patient uses tobacco products, smokes one pack cigarettes per day. - Ebola Screening: : Patient denies travel to an Ebola-affected area in the 21 days before illness onset. ROS: 20:42 Constitutional: Negative for fever, chills, and weight loss, Neck: Negative for injury, kb pain, and swelling, Cardiovascular: Negative for chest pain, palpitations, and edema, Respiratory: Negative for shortness of breath, cough, wheezing, and pleuritic chest pain, Abdomen/GI: Negative for abdominal pain, nausea, vomiting, diarrhea, and constipation, MS/Extremity: Negative for injury and deformity, Skin: Negative for injury, rash, and discoloration, Neuro: Negative for headache, weakness, numbness, tingling, and seizure. 20:42 ENT: Positive for sore throat. Exam: 20:42 Constitutional: This is a well developed, well nourished patient who is awake, alert, kb and in no acute distress. Head/Face: Normocephalic, atraumatic. ENT: Nares patent. No nasal discharge, no septal abnormalities noted. Tympanic membranes are normal and external auditory canals are clear. Oropharynx with no redness, swelling, or masses, exudates, or evidence of obstruction, uvula midline. Mucous membranes moist. Neck: Trachea midline, no thyromegaly or masses palpated, and no cervical lymphadenopathy. Supple, full range of motion without nuchal rigidity, or vertebral point tenderness. No Meningismus. Chest/axilla: Normal chest wall appearance and motion. Nontender with no deformity. No lesions are appreciated. Cardiovascular: Regular rate and rhythm with a normal S1 and S2. No gallops, murmurs, or rubs. Normal PMI, no JVD. No pulse deficits. Respiratory: Lungs have equal breath sounds bilaterally, clear to auscultation and percussion. No rales, rhonchi or wheezes noted. No increased work of breathing, no retractions or nasal flaring. Abdomen/GI: Soft, non-tender, with normal bowel sounds. No distension or tympany. No guarding or rebound. No evidence of tenderness throughout. Skin: Warm, dry with normal turgor. Normal color with no rashes, no lesions, and no evidence of cellulitis. MS/ Extremity: Pulses equal, no cyanosis. Neurovascular intact. Full, normal range of motion. Neuro: Awake and alert, GCS 15, oriented to person, place, time, and situation. Cranial nerves II-XII grossly intact. Motor strength 5/5 in all extremities. Sensory grossly intact. Cerebellar exam normal. Normal gait. Vital Signs: 19:25 BP 135 / 89; Pulse 92; Resp 18; Temp 98.1; Pulse Ox 96% on R/A; Weight 84.37 kg (R); aj1 Height 5 ft. 4 in. (162.56 cm) (R); Pain 0/10; 20:30 BP 145 / 80; Pulse 97; Resp 16; Pulse Ox 97% on R/A; jb4 19:25 Body Mass Index 31.93 (84.37 kg, 162.56 cm) aj1 MDM: 19:30 Patient medically screened. kb 20:41 Data reviewed: vital signs, nurses notes. Data interpreted: Pulse oximetry: on room air kb is 96 %. Interpretation: normal. Counseling: I had a detailed discussion with the patient and/or guardian regarding: the historical points, exam findings, and any diagnostic results supporting the discharge/admit diagnosis, lab results, the need for outpatient follow up, a family practitioner, to return to the emergency department if symptoms worsen or persist or if there are any questions or concerns that arise at home. 02/14 19:30 Order name: Flu 02/14 19:30 Order name: Strep 02/14 20:28 Order name: Influenza Screen (A ; Complete Time: 20:25 EDMS 02/14 20:29 Order name: Group A Streptococcus Rapid Sc; Complete Time: 20:25 EDMS Administered Medications: 20:38 Drug: GI Cocktail without - (Maalox Suspension 30 ml, Lidocaine Liquid 2 % 15 jb4 ml) Route: PO; 21:08 Follow up: Response: No adverse reaction; Pain is decreased jb4 Disposition: 02/15 08:08 Co-signature as Attending Physician, Anatoly Ryan MD I agree with the assessment and kdr plan of care. Disposition: 02/14/19 20:44 Discharged to Home. Impression: Acute pharyngitis. - Condition is Stable. - Discharge Instructions: Pharyngitis, [id number], Viral Respiratory Infection, [id number]. - Medication Reconciliation Form, Thank You Letter, Antibiotic Education, Prescription Opioid Use form. - Follow up: Emergency Department; When: As needed; Reason: Worsening of condition. Follow up: Private Physician; When: 2 - 3 days; Reason: Recheck today's complaints, Continuance of care, Re-evaluation by your physician. Signatures: Dispatcher [employer] EDMN Becca Chandra, [place] SOLICITOR-Amanda Lockwood RN RN aj1 Anatoly Ryan MD MD kdr Ezequiel Infante, RN RN jb4 Corrections: (The following items were deleted from the chart) 02/14 21:08 20:44 02/14/2019 20:44 Discharged to Home. Impression: Acute pharyngitis. Condition is jb4 Stable. Forms are Medication Reconciliation Form, Thank You Letter, Antibiotic Education, Prescription Opioid Use. Follow up: Emergency Department; When: As needed; Reason: Worsening of condition. Follow up: Private Physician; When: 2 - 3 days; Reason: Recheck today's complaints, Continuance of care, Re-evaluation by your physician. kb
--- NOTE | 2019-02-14 20:45 | ER ---
Nurse's Notes [facility] Name: Karen Shah Age: 48 yrs Sex: Female : 1970 Arrival Date: 02/14/2019 Time: 19:15 Bed 13 Private MD: Diagnosis: Acute pharyngitis Presentation: 02/14 19:22 Presenting complaint: Patient states: "I think I have the flu, my throat is hurting, aj1 I've been coughing a lot" Denies fever. Transition of care: patient was not received from another setting of care. Onset of symptoms was February 13, 2019. Risk Assessment: Do you want to hurt yourself or someone else? Patient reports no desire to harm self or others. Initial Sepsis Screen: Does the patient meet any 2 criteria? HR > 90 bpm. No. Patient's initial sepsis screen is negative. Does the patient have a suspected source of infection? Yes: Productive cough/pneumonia. Care prior to arrival: None. 19:22 Method Of Arrival: Wheelchair aj1 19:22 Acuity: ARIEL 4 aj1 Triage Assessment: 19:25 General: Appears in no apparent distress. comfortable, Behavior is calm. Pain: Denies aj1 pain. EENT: Reports sore throat. Neuro: Level of Consciousness is awake, alert, obeys commands, Oriented to person, place, time, situation. Cardiovascular: Patient's skin is warm and dry. Respiratory: Reports cough that is Airway is patent Respiratory effort is even, unlabored, Respiratory pattern is regular, symmetrical. 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 - Social history:: Smoking status: Patient uses tobacco products, smokes one pack cigarettes per day. - Ebola Screening: : Patient denies travel to an Ebola-affected area in the 21 days before illness onset. Screenin:30 Abuse screen: Denies threats or abuse. Nutritional screening: No deficits noted. jb4 Tuberculosis screening: No symptoms or risk factors identified. Fall Risk None identified. Assessment: 19:30 General: Appears in no apparent distress. uncomfortable, Behavior is calm, cooperative, jb4 appropriate for age. Pain: Complains of pain in throat Pain does not radiate. Pain currently is 10 out of 10 on a pain scale. Quality of pain is described as It just hurts. Neuro: Level of Consciousness is awake, alert, obeys commands, Oriented to person, place, time, situation. Cardiovascular: Patient's skin is warm and dry. Respiratory: Airway is patent Respiratory effort is even, unlabored, Respiratory pattern is regular, symmetrical. GI: No deficits noted. No signs and/or symptoms were reported involving the gastrointestinal system. : No deficits noted. No signs and/or symptoms were reported regarding the genitourinary system. EENT: Throat. Derm: Skin is intact, Skin is pink, warm \\T\\ dry. Musculoskeletal: Circulation, motion, and sensation intact. 21:06 Reassessment: Patient appears in no apparent distress at this time. Patient and/or jb4 family updated on plan of care and expected duration. Pain level reassessed. Patient is alert, oriented x 3, equal unlabored respirations, skin warm/dry/pink. Pt verbalized understanding of d/c and follow up instrucitons. Vital Signs: 19:25 BP 135 / 89; Pulse 92; Resp 18; Temp 98.1; Pulse Ox 96% on R/A; Weight 84.37 kg (R); aj1 Height 5 ft. 4 in. (162.56 cm) (R); Pain 0/10; 20:30 BP 145 / 80; Pulse 97; Resp 16; Pulse Ox 97% on R/A; jb4 19:25 Body Mass Index 31.93 (84.37 kg, 162.56 cm) aj1 ED Course: 19:15 Patient arrived in ED. am2 19:24 Triage completed. aj1 19:25 Arm band placed on Patient placed in waiting room. aj1 19:30 Becca Chandra FNP-C is PHCP. kb 19:30 Anatoly Ryan MD is Attending Physician. kb 19:30 Patient has correct armband on for positive identification. Bed in low position. Call jb4 light in reach. Side rails up X 1. Pulse ox on. NIBP on. 20:09 Strep Sent. jb4 20:09 Flu Sent. jb4 20:12 Ezequiel Infante, RN is Primary Nurse. jb4 21:07 No provider procedures requiring assistance completed. Patient did not have IV access jb4 during this emergency room visit. Administered Medications: 20:38 Drug: GI Cocktail without - (Maalox Suspension 30 ml, Lidocaine Liquid 2 % 15 jb4 ml) Route: PO; 21:08 Follow up: Response: No adverse reaction; Pain is decreased jb4 Outcome: 20:44 Discharge ordered by . kb 21:07 Discharged to home ambulatory, with family. jb4 21:07 Condition: stable 21:07 Discharge instructions given to patient, family, Instructed on discharge instructions, follow up and referral plans. Demonstrated understanding of instructions, follow-up care. 21:08 Patient left the ED. jb4 Signatures: Becca Chandra, JESSENIAC CHIROPRACTIC PRACTICE MANAGER-Amanda Lockwood RN RN aj1 Ezequiel Infante, RN RN jb4 Angie Gupta am2
[2019-02-14 21:37] VITALS: TEMP 98.1
[2019-02-14 21:39] VITALS: BP 145/80; O2SAT 97
== END 2019-02-14 21:08 | disposition home or self-care (01) ==
LOC: ER 19:11
DX: J02.9 Acute pharyngitis, unspecified (principal); I10 Essential (primary) hypertension; I25.2 Old myocardial infarction; E11.9 Type 2 diabetes mellitus without complications; E78.5 Hyperlipidemia, unspecified; I25.10 Atherosclerotic heart disease of native coronary artery without angina pectoris; F17.210 Nicotine dependence, cigarettes, uncomplicated; Z88.6 Allergy status to analgesic agent
CPT/HCPCS: 87070; 87081; 87804; 99283

== ENCOUNTER 2019-04-06 20:35 | Emergency (ER) | payer OTHER ==
--- NOTE | 2019-04-06 22:01 | ER ---
Nurse's Notes [facility] Name: Karen Shah Age: 48 yrs Sex: Female : 1970 Arrival Date: 04/06/2019 Time: 20:40 Bed 15 Private MD: Diagnosis: Acute lymphadenitis of face, head and neck;Cough Presentation: 04/06 21:00 Presenting complaint: Patient states: cough for three weeks and I feel like the front la1 of my neck is swollen. Transition of care: patient was not received from another setting of care. Onset of symptoms was April 06, 2019. Risk Assessment: Do you want to hurt yourself or someone else? Patient reports no desire to harm self or others. Initial Sepsis Screen: Does the patient meet any 2 criteria? No. Patient's initial sepsis screen is negative. Does the patient have a suspected source of infection? No. Patient's initial sepsis screen is negative. Care prior to arrival: None. 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 - Social history:: Smoking status: Patient uses tobacco products, smokes one pack cigarettes per day. - Ebola Screening: : No symptoms or risks identified at this time. Screenin:10 Abuse screen: Denies threats or abuse. Denies injuries from another. Nutritional wh screening: No deficits noted. Tuberculosis screening: No symptoms or risk factors identified. Fall Risk None identified. Assessment: 21:10 General: Appears in no apparent distress. Behavior is calm, cooperative, appropriate wh for age. Pain: Denies pain. Neuro: Level of Consciousness is awake, alert, obeys commands, Oriented to person, place, time, situation, Appropriate for age. Cardiovascular: Heart tones S1 S2. Respiratory: Reports cough that is non-productive, Airway is patent Respiratory effort is even, unlabored, Respiratory pattern is regular, symmetrical, Breath sounds are clear bilaterally. GI: Abdomen is flat, non-distended. : No signs and/or symptoms were reported regarding the genitourinary system. EENT: Throat is pink. Derm: Skin is intact, is healthy with good turgor, Skin is pink, warm \T\ dry. normal. Musculoskeletal: Amputation of right leg. Vital Signs: 21:03 BP 163 / 89; Pulse 88; Resp 16; Temp 98.6; Pulse Ox 100% on R/A; Weight 70.76 kg; la1 Height 5 ft. 4 in. (162.56 cm); 22:17 BP 157 / 82; Pulse 96; Resp 18; Pulse Ox 99% on R/A; wh 21:03 Body Mass Index 26.78 (70.76 kg, 162.56 cm) la1 ED Course: 20:40 Patient arrived in ED. cf2 21:01 Triage completed. la1 21:02 Arm band placed on left wrist. la1 21:10 Patient has correct armband on for positive identification. Bed in low position. Call light in reach. Side rails up X 1. Pulse ox on. NIBP on. 21:21 Nicole Glass is Primary Nurse. 21:28 Jorge Chamberlain PA is PHCP. jr8 21:29 Anatoly Ryan MD is Attending Physician. jr8 22:07 No provider procedures requiring assistance completed. Patient did not have IV access during this emergency room visit. Administered Medications: 22:03 Drug: Tussionex Pennkinetic ER 5 ml Route: PO; wh 22:19 Follow up: Response: No adverse reaction; Marked relief of symptoms Outcome: 21:59 Discharge ordered by . jr8 22:18 Discharged to home via wheelchair, with family. wh 22:18 Condition: stable 22:18 Discharge instructions given to patient, family, Instructed on discharge instructions, follow up and referral plans. medication usage, POC Lymphadenopathy and COugh Demonstrated understanding of instructions, follow-up care, medications, POC Prescriptions given X 1. 22:20 Patient left the ED. Signatures: Jorge Chamberlain PA PA jr8 Burton Jones RN RN Nicole Santiago Celesta cf2
--- NOTE | 2019-04-06 22:01 | EDPHYS ---
Physician Documentation [facility] Name: Karen Shah Age: 48 yrs Sex: Female : 1970 Arrival Date: 04/06/2019 Time: 20:40 Bed 15 Private MD: ED Physician Anatoly Ryan HPI: 04/06 22:00 This 48 yrs old Female presents to ER via Wheelchair with complaints of Sore jr8 Throat. 22:00 Onset: The symptoms/episode began/occurred gradually, 4 day(s) ago. Severity of jr8 symptoms: At their worst the symptoms were mild, in the emergency department the symptoms are unchanged. Modifying factors: The symptoms are alleviated by nothing, the symptoms are aggravated by nothing. Associated signs and symptoms: Pertinent positives: cough. The patient has not experienced similar symptoms in the past. The patient has been recently seen by a physician:. Patient stated that she has had dry cough for 3 weeks. CXR completed with no acute findings. Put on albuterol. History of COPD with smoking. Now having pain with swallowing but feels that it is on her neck and not necessarily her throat . 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 - Social history:: Smoking status: Patient uses tobacco products, smokes one pack cigarettes per day. - Ebola Screening: : No symptoms or risks identified at this time. ROS: 22:00 Constitutional: Negative for fever, chills, and weight loss. jr8 22:00 ENT: Positive for sore throat. 22:00 Respiratory: Positive for cough, Negative for dyspnea on exertion, shortness of breath, sputum production, wheezing. 22:00 All other systems are negative. Exam: 22:00 Head/Face: Normocephalic, atraumatic. Eyes: Pupils equal round and reactive to light, jr8 extra-ocular motions intact. Lids and lashes normal. Conjunctiva and sclera are non-icteric and not injected. Cornea within normal limits. Periorbital areas with no swelling, redness, or edema. ENT: Nares patent. No nasal discharge, no septal abnormalities noted. Tympanic membranes are normal and external auditory canals are clear. Oropharynx with no redness, swelling, or masses, exudates, or evidence of obstruction, uvula midline. Mucous membranes moist. Cardiovascular: Regular rate and rhythm with a normal S1 and S2. No gallops, murmurs, or rubs. Normal PMI, no JVD. No pulse deficits. Respiratory: Lungs have equal breath sounds bilaterally, clear to auscultation and percussion. No rales, rhonchi or wheezes noted. No increased work of breathing, no retractions or nasal flaring. Abdomen/GI: Soft, non-tender, with normal bowel sounds. No distension or tympany. No guarding or rebound. No evidence of tenderness throughout. Back: No spinal tenderness. No costovertebral tenderness. Full range of motion. Skin: Warm, dry with normal turgor. Normal color with no rashes, no lesions, and no evidence of cellulitis. Neuro: Awake and alert, GCS 15, oriented to person, place, time, and situation. Cranial nerves II-XII grossly intact. Motor strength 5/5 in all extremities. Sensory grossly intact. Cerebellar exam normal. Normal gait. 22:00 Neck: External neck: is normal, C-spine: appears grossly normal, Thyroid: appears normal, Trachea: is midline with no obvious abnormalities, ROM/movement: is normal, is supple, without pain, no range of motions limitations, no meningismus, no nuchal rigidity, negative Brudzinski's sign, negative Kernig's sign, Lymph nodes: lymphadenopathy is appreciated, submandibular nodes. Vital Signs: 21:03 BP 163 / 89; Pulse 88; Resp 16; Temp 98.6; Pulse Ox 100% on R/A; Weight 70.76 kg; la1 Height 5 ft. 4 in. (162.56 cm); 22:17 BP 157 / 82; Pulse 96; Resp 18; Pulse Ox 99% on R/A; wh 21:03 Body Mass Index 26.78 (70.76 kg, 162.56 cm) la1 MDM: 21:29 Patient medically screened. jr8 21:59 Data reviewed: vital signs, nurses notes, lab test result(s), and as a result, I will jr8 discharge patient. Data interpreted: Pulse oximetry: on room air is 100 %. Interpretation: normal. Counseling: I had a detailed discussion with the patient and/or guardian regarding: the historical points, exam findings, and any diagnostic results supporting the discharge/admit diagnosis, lab results, the need for outpatient follow up, a family practitioner, to return to the emergency department if symptoms worsen or persist or if there are any questions or concerns that arise at home. 04/06 21:08 Order name: Flu aa1 04/06 21:08 Order name: Strep aa1 04/06 21:42 Order name: Group A Streptococcus Rapid Sc; Complete Time: 21:59 EDMS 04/06 21:43 Order name: Influenza Screen (A ; Complete Time: 21:59 EDMS 04/06 22:03 Order name: Throat Culture EDMS Administered Medications: 22:03 Drug: Tussionex Pennkinetic ER 5 ml Route: PO; 22:19 Follow up: Response: No adverse reaction; Marked relief of symptoms Disposition: 04/07 06:16 Co-signature as Attending Physician, Anatoly Ryan MD I agree with the assessment and kdr plan of care. Disposition: 04/06/19 21:59 Discharged to Home. Impression: Acute lymphadenitis of face, head and neck, Cough. - Condition is Stable. - Discharge Instructions: Cool Mist Vaporizer, Cough, Adult, [id number], Lymphadenopathy. - Prescriptions for Augmentin 875- 125 mg Oral Tablet - take 1 tablet by ORAL route every 12 hours for 10 days; 20 tablet. - Medication Reconciliation Form, Thank You Letter, Antibiotic Education, Prescription Opioid Use form. - Follow up: Private Physician; When: 1 week; Reason: Recheck today's complaints, Continuance of care, Re-evaluation by your physician. - Problem is new. - Symptoms have improved. Signatures: Dispatcher [employer] EDGA Kat Starr RN RN aa1 Rittger, MD MD kenneth Ledbetter Josh, PA PA jr8 Burton Jones RN RN la1 Nicole Glass Corrections: (The following items were deleted from the chart) 04/06 22:20 21:59 04/06/2019 21:59 Discharged to Home. Impression: Acute lymphadenitis of face, wh head and neck; Cough. Condition is Stable. Forms are Medication Reconciliation Form, Thank You Letter, Antibiotic Education, Prescription Opioid Use. Follow up: Private Physician; When: 1 week; Reason: Recheck today's complaints, Continuance of care, Re-evaluation by your physician. Problem is new. Symptoms have improved. jr8
[2019-04-06] MEDS ORDERED: HYDROCODONE/CHLORPHEN 5 ML/OSYR ONE (22:02)
[2019-04-06 22:44] VITALS: TEMP 98.6
[2019-04-06 22:46] VITALS: BP 157/82; O2SAT 99
--- OUTSIDE RECORDS SUMMARY | 2019-04-08 06:50 | XMS REPORT ---
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
--- OUTSIDE RECORDS SUMMARY | 2019-04-08 06:50 | XMS REPORT ---
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
--- OUTSIDE RECORDS SUMMARY | 2019-04-08 06:50 | XMS REPORT ---
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 Problem HTN (hypertension), benign I10 Active Problem Seizures R56.9 Active Assessment HTN (hypertension), benign I10 Active Assessment Chronic pain disorder G89.4 Active Assessment Neuropathy G62.9 Active Assessment Seizures R56.9 Active Assessment Type 2 diabetes mellitus with other E11.69 Active specified complication Problem Coronary artery disease involving I25.709 Active 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 Assessment Depression with anxiety F41.8 Active Assessment Coronary artery disease involving I25.709 Active 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 Medications Medication Code Code Instructions Start End Status Dosage System Date Date Atorvastatin [facility] 74743562154 40 MG Orally Active 1 tablet Calcium Once a day Lexapro [facility] 75361880322 20 MG Orally Active 1 tablet Once a day Levetiracetam [facility] 55557384719 500 MG Orally Active 1 tablet Twice a day Metoprolol [facility] 83113192234 25 MG Orally Active 1 tablet Tartrate Twice a day with food Ranexa [facility] 53272968593 500 MG Orally Active 1 tablet Twice a day Klor-Con M10 [facility] 21968878880 10 MEQ Orally Active 1 tablet Twice a day with food Insulin Aspart [facility] [address]-51 (70-30) 100 Active 60 units Prot & Aspart UNIT/ML BID Subcutaneous Metformin HCl [facility] 06375407463 500 MG Orally Active 1 tablet Twice a day with meals Aspirin [facility] 66881564259 81 MG Orally Active 1 tablet Once a day Gabapentin [facility] 06618392180 800 MG Orally Active 1 tablet Three times a day Furosemide [facility] 53064222446 20 MG Orally Active 1 tablet Once a day Pantoprazole [facility] 98238922880 40 MG Orally Active 1 tablet Sodium Once a day Duloxetine HCl [facility] 41024516705 30 MG Orally Active 1 capsule Twice a day Xanax [facility] 92925212005 0.5 MG Orally Active 1 tablet Twice a day Clopidogrel [facility] 13709758740 75 MG Orally Active 1 tablet Bisulfate Once a day Results No Known Results Summary Purpose eClinicalWorks Submission
--- OUTSIDE RECORDS SUMMARY | 2019-04-08 06:50 | XMS REPORT ---
[...] Assessment Hx of CABG Z95.1 Active Problem longterm current use of 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 Assessment Migraine without aura and without G43.009 Active status migrainosus, not intractable Problem Depression with anxiety F41.8 Active Problem HTN (hypertension), benign I10 Active Problem Seizures R56.9 Active Problem Dependent on wheelchair Z99.3 Active Problem Coronary artery disease involving I25.709 Active coronary bypass graft of [place] heart with angina pectoris Assessment Seizures R56.9 Active Assessment Neuropathy G62.9 Active Problem History of right above knee Z89.611 Active amputation 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 Problem Chronic pain disorder G89.4 Active Problem History of CVA (cerebrovascular Z86.73 Active accident) Problem Migraine without aura and without G43.009 Active status migrainosus, not intractable Problem Neuropathy G62.9 Active Assessment Depression with anxiety F41.8 Active Assessment Coronary artery disease involving I25.709 Active coronary bypass graft of [place] heart with angina pectoris Assessment HTN (hypertension), benign I10 Active Assessment Chronic pain disorder G89.4 Active Problem Type 2 diabetes mellitus with other E11.69 Active specified complication Problem Type 2 diabetes mellitus with E11.65 Active hyperglycemia Assessment Type 2 diabetes mellitus with other E11.69 Active specified complication Medications Medication Code Code Instructions Start End Status Dosage System Date Date Metformin HCl [facility] 15362206554 500 MG Orally Active 1 tablet Twice a day with meals Pantoprazole [facility] 53356950514 40 MG Orally Active 1 tablet Sodium Once a day Klor-Con M10 [facility] 52694157974 10 MEQ Orally Active 1 tablet Twice a day with food Xanax [facility] 96434060789 0.5 MG Orally Inactive 1 tablet Twice a day Ranexa [facility] 67958407867 500 MG Orally Active 1 tablet Twice a day Duloxetine HCl [facility] 85534467357 30 MG Orally Active 1 capsule Twice a day Levetiracetam [facility] 05951159116 500 MG Orally Active 1 tablet Twice a day Clopidogrel [facility] 18402277516 75 MG Orally Active 1 tablet Bisulfate Once a day Gay [facility] 66750968818 7.5-325 MG Active 1 tablet Orally every 12 as needed hrs Aspirin [facility] 56814669156 81 MG Orally Active 1 tablet Once a day Lexapro [facility] 05655954595 20MG Orally Active 1 tablet Once a day Gabapentin [facility] 82659975552 800 MG Orally Active 1 tablet Three times a day Atorvastatin [facility] 53117474249 40 MG Orally Active 1 tablet Calcium Once a day Metoprolol [facility] 86433405261 25 MG Orally Active 1 tablet Tartrate Twice a day with food Insulin Aspart [facility] [address]-48 (70-30) 100 Active 60 units Prot & Aspart UNIT/ML BID Subcutaneous Atorvastatin [facility] 53652832221 40 MG Orally Active 1 tablet Calcium Once a day Clopidogrel [facility] 22714220875 75MG Orally Active 1 tablet Bisulfate Once a day Furosemide [facility] 28005304731 20 MG Orally Active 1 tablet Once a day Lexapro [facility] 22466459822 20 MG Orally Active 1 tablet Once a day Duloxetine HCl [facility] 91388977538 30 MG Orally Active 1 capsule Twice a day Furosemide [facility] 22944323344 20 MG Orally Active 1 tablet Once a day Results No Known Results Summary Purpose eClinicalWorks Submission
--- OUTSIDE RECORDS SUMMARY | 2019-04-08 06:50 | XMS REPORT ---
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 Medications Medication Code Code Instructions Start End Status Dosage System Date Date Metoprolol [facility] 80689843803 25 MG Orally Active 1 tablet Tartrate Twice a day with food Pantoprazole [facility] 87487928525 40 MG Orally Active 1 tablet Sodium Once a day Gabapentin [facility] 37333987271 800 MG Orally Active 1 tablet Three times a day Duloxetine HCl [facility] 88986039476 30 MG Orally Active 1 capsule Twice a day Aspirin [facility] 38608255546 81 MG Orally Active 1 tablet Once a day Insulin Aspart [facility] [address]-57 (70-30) 100 Active 60 units Prot & Aspart UNIT/ML BID Subcutaneous Ranexa [facility] 00601581157 500 MG Orally Active 1 tablet Twice a day Levetiracetam [facility] 47969922176 500 MG Orally Active 1 tablet Twice a day Lexapro [facility] 99364678243 20 MG Orally Active 1 tablet Once a day Xanax [facility] 03529622058 0.5 MG Orally Active 1 tablet Twice a day Clopidogrel [facility] 94942793404 75 MG Orally Active 1 tablet Bisulfate Once a day Klor-Con M10 [facility] 30640645291 10 MEQ Orally Active 1 tablet Twice a day with food Furosemide [facility] 36535668864 20 MG Orally Active 1 tablet Once a day Metformin HCl [facility] 28111590815 500 MG Orally Active 1 tablet Twice a day with meals Atorvastatin [facility] 11454178222 40 MG Orally Active 1 tablet Calcium Once a day Results No Known Results Summary Purpose eClinicalWorks Submission
--- OUTSIDE RECORDS SUMMARY | 2019-04-08 06:50 | XMS REPORT ---
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
--- OUTSIDE RECORDS SUMMARY | 2019-04-08 06:50 | XMS REPORT ---
:1970 [facility] Address [address] [place] [address] Care Team Providers Name Role Phone Unavailable Unavailable Unavailable Problems This patient has no known problems. Allergies, Adverse Reactions, Alerts This patient has no known allergies or adverse reactions. Medications This patient has no known medications.
== END 2019-04-06 22:20 | disposition home or self-care (01) ==
LOC: ER 20:35
DX: L04.0 Acute lymphadenitis of face, head and neck (principal); I10 Essential (primary) hypertension; E78.00 Pure hypercholesterolemia, unspecified; E11.9 Type 2 diabetes mellitus without complications; G40.909 Epilepsy, unspecified, not intractable, without status epilepticus; I25.10 Atherosclerotic heart disease of native coronary artery without angina pectoris; I25.2 Old myocardial infarction; F17.210 Nicotine dependence, cigarettes, uncomplicated; Z88.5 Allergy status to narcotic agent
CPT/HCPCS: 87070; 87081; 87804; 99283

== ENCOUNTER 2019-08-12 01:58 | Observation (INO) | payer OTHER ==
--- OUTSIDE RECORDS SUMMARY | 2019-08-12 02:00 | XMS REPORT ---
:1970 [facility] Address [address] [place] [address] Care Team Providers Name Role Phone Unavailable Unavailable Unavailable Problems This patient has no known problems. Allergies, Adverse Reactions, Alerts This patient has no known allergies or adverse reactions. Medications This patient has no known medications.
--- OUTSIDE RECORDS SUMMARY | 2019-08-12 02:00 | XMS REPORT ---
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 Problem HTN (hypertension), benign I10 Active Problem Seizures R56.9 Active Assessment HTN (hypertension), benign I10 Active Assessment Chronic pain disorder G89.4 Active Assessment Neuropathy G62.9 Active Assessment Seizures R56.9 Active Assessment Type 2 diabetes mellitus with other E11.69 Active specified complication Problem Coronary artery disease involving I25.709 Active 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 Assessment Depression with anxiety F41.8 Active Assessment Coronary artery disease involving I25.709 Active 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 Medications Medication Code Code Instructions Start End Status Dosage System Date Date Atorvastatin [facility] 38897871269 40 MG Orally Active 1 tablet Calcium Once a day Lexapro [facility] 38452576735 20 MG Orally Active 1 tablet Once a day Levetiracetam [facility] 96667751437 500 MG Orally Active 1 tablet Twice a day Metoprolol [facility] 06272245514 25 MG Orally Active 1 tablet Tartrate Twice a day with food Ranexa [facility] 08632713063 500 MG Orally Active 1 tablet Twice a day Klor-Con M10 [facility] 80367277426 10 MEQ Orally Active 1 tablet Twice a day with food Insulin Aspart [facility] [address]-52 (70-30) 100 Active 60 units Prot & Aspart UNIT/ML BID Subcutaneous Metformin HCl [facility] 73861320157 500 MG Orally Active 1 tablet Twice a day with meals Aspirin [facility] 10481202827 81 MG Orally Active 1 tablet Once a day Gabapentin [facility] 86966765751 800 MG Orally Active 1 tablet Three times a day Furosemide [facility] 04430435514 20 MG Orally Active 1 tablet Once a day Pantoprazole [facility] 47348483896 40 MG Orally Active 1 tablet Sodium Once a day Duloxetine HCl [facility] 76224797750 30 MG Orally Active 1 capsule Twice a day Xanax [facility] 71737462379 0.5 MG Orally Active 1 tablet Twice a day Clopidogrel [facility] 43219162975 75 MG Orally Active 1 tablet Bisulfate Once a day Results No Known Results Summary Purpose eClinicalWorks Submission
--- OUTSIDE RECORDS SUMMARY | 2019-08-12 02:00 | XMS REPORT ---
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 Medications Medication Code Code Instructions Start End Status Dosage System Date Date Metoprolol [facility] 93629363157 25 MG Orally Active 1 tablet Tartrate Twice a day with food Pantoprazole [facility] 50745410002 40 MG Orally Active 1 tablet Sodium Once a day Gabapentin [facility] 97584006465 800 MG Orally Active 1 tablet Three times a day Duloxetine HCl [facility] 36232246852 30 MG Orally Active 1 capsule Twice a day Aspirin [facility] 34818541124 81 MG Orally Active 1 tablet Once a day Insulin Aspart [facility] [address]-51 (70-30) 100 Active 60 units Prot & Aspart UNIT/ML BID Subcutaneous Ranexa [facility] 44403938807 500 MG Orally Active 1 tablet Twice a day Levetiracetam [facility] 41286144882 500 MG Orally Active 1 tablet Twice a day Lexapro [facility] 21471976826 20 MG Orally Active 1 tablet Once a day Xanax [facility] 80487070544 0.5 MG Orally Active 1 tablet Twice a day Clopidogrel [facility] 86519643971 75 MG Orally Active 1 tablet Bisulfate Once a day Klor-Con M10 [facility] 65759396902 10 MEQ Orally Active 1 tablet Twice a day with food Furosemide [facility] 05823660013 20 MG Orally Active 1 tablet Once a day Metformin HCl [facility] 33453467775 500 MG Orally Active 1 tablet Twice a day with meals Atorvastatin [facility] 60847644091 40 MG Orally Active 1 tablet Calcium Once a day Results No Known Results Summary Purpose eClinicalWorks Submission
--- OUTSIDE RECORDS SUMMARY | 2019-08-12 02:00 | XMS REPORT ---
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
--- OUTSIDE RECORDS SUMMARY | 2019-08-12 02:01 | XMS REPORT ---
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
--- OUTSIDE RECORDS SUMMARY | 2019-08-12 02:01 | XMS REPORT ---
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 Assessment Migraine without aura and without G43.009 Active status migrainosus, not intractable Problem Depression with anxiety F41.8 Active Problem HTN (hypertension), benign I10 Active Problem Seizures R56.9 Active Problem Dependent on wheelchair Z99.3 Active Problem Coronary artery disease involving I25.709 Active coronary bypass graft of [place] heart with angina pectoris Assessment Seizures R56.9 Active Assessment Neuropathy G62.9 Active Problem History of right above knee Z89.611 Active amputation 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 Problem Chronic pain disorder G89.4 Active Problem History of CVA (cerebrovascular Z86.73 Active accident) Problem Migraine without aura and without G43.009 Active status migrainosus, not intractable Problem Neuropathy G62.9 Active Assessment Depression with anxiety F41.8 Active Assessment Coronary artery disease involving I25.709 Active coronary bypass graft of [place] heart with angina pectoris Assessment HTN (hypertension), benign I10 Active Assessment Chronic pain disorder G89.4 Active Problem Type 2 diabetes mellitus with other E11.69 Active specified complication Problem Type 2 diabetes mellitus with E11.65 Active hyperglycemia Assessment Type 2 diabetes mellitus with other E11.69 Active specified complication Medications Medication Code Code Instructions Start End Status Dosage System Date Date Metformin HCl [facility] 70815597214 500 MG Orally Active 1 tablet Twice a day with meals Pantoprazole [facility] 09515042946 40 MG Orally Active 1 tablet Sodium Once a day Klor-Con M10 [facility] 63009689924 10 MEQ Orally Active 1 tablet Twice a day with food Xanax [facility] 10842957394 0.5 MG Orally Inactive 1 tablet Twice a day Ranexa [facility] 89280998168 500 MG Orally Active 1 tablet Twice a day Duloxetine HCl [facility] 27083997130 30 MG Orally Active 1 capsule Twice a day Levetiracetam [facility] 08863967658 500 MG Orally Active 1 tablet Twice a day Clopidogrel [facility] 16098240100 75 MG Orally Active 1 tablet Bisulfate Once a day [place] [facility] 33483064162 7.5-325 MG Active 1 tablet Orally every 12 as needed hrs Aspirin [facility] 68777517920 81 MG Orally Active 1 tablet Once a day Lexapro [facility] 11100994764 20MG Orally Active 1 tablet Once a day Gabapentin [facility] 58280716712 800 MG Orally Active 1 tablet Three times a day Atorvastatin [facility] 36938292029 40 MG Orally Active 1 tablet Calcium Once a day Metoprolol [facility] 78900774796 25 MG Orally Active 1 tablet Tartrate Twice a day with food Insulin Aspart [facility] [address]-44 (70-30) 100 Active 60 units Prot & Aspart UNIT/ML BID Subcutaneous Atorvastatin [facility] 42000511444 40 MG Orally Active 1 tablet Calcium Once a day Clopidogrel [facility] 88952770412 75MG Orally Active 1 tablet Bisulfate Once a day Furosemide [facility] 39270702422 20 MG Orally Active 1 tablet Once a day Lexapro [facility] 94559376547 20 MG Orally Active 1 tablet Once a day Duloxetine HCl [facility] 45375269636 30 MG Orally Active 1 capsule Twice a day Furosemide [facility] 03884804318 20 MG Orally Active 1 tablet Once a day Results No Known Results Summary Purpose eClinicalWorks Submission
--- OUTSIDE RECORDS SUMMARY | 2019-08-12 02:01 | XMS REPORT ---
[...] involving I25.709 Active coronary bypass graft of [place] heart with angina pectoris Problem History of right above knee Z89.611 Active amputation Problem Chronic pain disorder G89.4 Active Problem History of CVA (cerebrovascular Z86.73 Active accident) Problem Migraine without aura and without G43.009 Active status migrainosus, not intractable Problem Neuropathy G62.9 Active Medications No Known Medications Results No Known Results Summary Purpose [employer] Submission
--- OUTSIDE RECORDS SUMMARY | 2019-08-12 02:04 | XMS REPORT | Summary of Care ---
:1970 Author Organization [facility] - [facility] Address [address] [place] [id number] Care Team Providers Name Role Phone Fabby Meléndez Kylah Unavailable Dev Zavala MD Primary Care Provider Serena Garsia MD Unavailable Reason for Referral (Routine) Status Reason Specialty Diagnoses / Procedures Referred By Referred To Contact Contact New Request Cardiology Diagnoses Essential hypertension Coronary artery disease involving [place] coronary artery of [place] heart without angina pectoris PAD (peripheral artery disease) Hyperlipidemia, unspecified hyperlipidemia type Lily Jenkins, Chronic heart failure with preserved ejection fraction H/O right coronary artery stent placement Abnormal nuclear stress test MD Procedures Cardiac Cath Request for Service (Cardiology Use Only) [address] [place] [address] [address] [place] [address] Reason for Visit Reason Comments Follow-up 6mo Encounter Details Date Type Department Care Team Description 08/05/2019 Office Visit [facility] Lily Jenkins MD Coronary artery disease involving [place] coronary artery of [place] heart without angina pectoris (Primary Dx); Cardiology- [address] Essential hypertension; [address] [facility] PAD (peripheral artery disease); Drive, [address] Hyperlipidemia, unspecified hyperlipidemia type; [place] [address] Chronic heart failure with preserved ejection fraction; [id number] H/O right coronary artery stent placement; [phone] Abnormal nuclear stress test Allergies Active Allergy Reactions Severity Noted Date Comments Ketorolac Tromethamine Hives 12/15/2016 Tramadol Hives 12/15/2016 documented as of this encounter (statuses as of 08/05/2019) Medications Medication Sig Dispensed Refills Start End Date Status Date aspirin (ASPIRIN LOW Take 81 mg by 0 Active DOSE) 81 mg EC mouth daily. tablet Insulin Use as 180 Syringe 3 Active Syringe-Needle U-100 directed 8 (INSULIN SYRINGE) 1 mL 30 gauge x 5/16 SyrgIndications: Diabetes 1.5, managed as type 1 gabapentin 800 mg Take 1 tablet 270 tablet 2 Active tabletIndications: by mouth 3 9 Neuropathy (three) times daily. metFORMIN 500 mg Take 2 360 tablet 3 Active tablet tablets by 9 mouth 2 (two) times daily with meals. You can do two pills in the morning and one in the evening. Nitrofurantoin&Nit. Take 1 30 capsule 2 Active Macrocryst capsule by 9 (MACROBID) 100 mg mouth daily. capsuleIndications: Recurrent UTI levETIRAcetam 500 mg 2 Active tablet 9 phenazopyridine 200 Take 1 tablet 9 tablet 0 Active mg by mouth 3 9 tabletIndications: (three) times Recurrent UTI daily. metoprolol tartrate Take 1 tablet 90 tablet 1 Active 25 mg by mouth 9 tabletIndications: daily. Essential hypertension atorvastatin Take 1 tablet 90 tablet 1 Active (LIPITOR) 40 mg by mouth at 9 tabletIndications: bedtime. High cholesterol clopidogrel (PLAVIX) Take 1 tablet 90 tablet 1 Active 75 mg by mouth 9 tabletIndications: daily. H/O right coronary artery stent placement DULoxetine 30 mg Take 1 90 capsule 1 Active capsuleIndications: capsule by 9 Anxiety and mouth daily. depression, Peripheral neuropathic pain pantoprazole 40 mg Take 1 tablet 90 tablet 1 Active EC by mouth 9 tabletIndications: daily. Gastroesophageal reflux disease, esophagitis presence not specified potassium chloride Take 1 tablet 90 tablet 1 Active 10 mEq CR by mouth 9 tabletIndications: daily. Hypokalemia albuterol 90 Inhale 2 1 Inhaler 1 Active mcg/actuation Puffs every 6 9 inhalerIndications: (six) hours Persistent cough, as needed for Tobacco use, Wheezing or Wheezing Shortness of Breath. nitroglycerin 0.4 mg 1 tab SL 25 tablet 0 Active sublingual q5min up to 3 9 tabletIndications: doses PRN H/O right coronary chest pain, artery stent then activate placement 911. FUROSEMIDE 20 mg TAKE 1 TABLET 90 tablet 1 Active tabletIndications: BY MOUTH ONCE 9 Congestive heart DAILY failure, unspecified HF chronicity, unspecified heart failure type insulin NPH and Inject 80 6 Vial 3 Active regular human 70-30 units AM, 90 9 (NOVOLIN 70/30 U-100 units PM INSULIN) 100 unit/mL (70-30) injectionIndications : Type 2 diabetes mellitus with diabetic peripheral angiopathy without gangrene, with long-term current use of insulin isosorbide Take 1 tablet 90 tablet 1 Active mononitrate 30 mg 24 by mouth 0 hr daily. tabletIndications: H/O right coronary artery stent placement isosorbide Take 1 tablet 90 tablet 1 08/05/19 Discontinued mononitrate 30 mg 24 by mouth 9 20 (Reorder) hr daily. tabletIndications: H/O right coronary artery stent placement documented as of this encounter (statuses as of 08/05/2019) Active Problems Problem Noted Date Coronary artery disease involving [place] coronary artery of [place] heart 08/04 without angina pectoris PAD (peripheral artery disease) 08/05/2019 Chronic heart failure with preserved ejection fraction 08/05/2019 GARY (stress urinary incontinence, female) 02/02/2018 Overview: Added automatically from request for surgery [id number] GERD (gastroesophageal reflux disease) DM (diabetes mellitus) Depression CVA (cerebral vascular accident) CHF (congestive heart failure) Anxiety Angina pectoris H/O right coronary artery stent placement High cholesterol HTN (hypertension) Hx of CABG Migraines Seizures Unilateral AKA, right documented as of this encounter (statuses as of 08/05/2019) Social History Tobacco Use Types Packs/Day Years [...] Sign Reading Time Taken Comments Blood Pressure 145/88 08/05/2019 11:11 AM CDT Pulse 92 08/05/2019 11:11 AM CDT Temperature - - Respiratory Rate 19 08/05/2019 11:11 AM CDT Oxygen Saturation 99% 08/05/2019 11:11 AM CDT Inhaled Oxygen Concentration - - Weight 80.5 kg (177 lb 8 oz) 08/05/2019 11:11 AM CDT Height 162.6 cm (5' 4") 08/05/2019 11:11 AM CDT Body Mass Index 30.47 08/05/2019 11:11 AM CDT documented in this encounter Progress Notes Lily Jenkins MD - 08/05/2019 11:20 AM CDT CARDIOLOGY CLINIC NOTE 08/05/2019 Reason for Referral/Presenting Complaint: CAD, PAD PCP: Dada Horan History of Present Illness: Karen Shah is a 49 years old female with history of obesity, IDDM, CAD s/ p CABG and PCI, h/o stroke, and PAD s/p R leg above the knee amputation. At age of 42 she had ID and underwent CABG x 3. At age of 45 she had another ID and underwent redo CABG x 2. In [...] no revascularizable lesions. She was admitted to [facility] for genital area infection. Has chest pain at that time too. Since last visit she stopped Imdur. Several episodes of chest pain--pressure, non exertional, lasting minutes. Nuclear stress test 01/2019 SPECT imaging reveals shows small size, moderate degree reversible defect noted apical anterior and mid anterior wall segments. Review of Systems: General: (-) fever, (-) [...] Angina pectoris Anxiety CHF (congestive heart failure) Coronary artery disease involving [place] coronary artery of [place] heart without angina pectoris08/05/2019 CVA (cerebral vascular accident) Depression DM (diabetes mellitus) GERD (gastroesophageal reflux disease) H/O right coronary artery stent placement High cholesterol HTN (hypertension) Hx of CABG Migraines Osteomyelitis Retinal detachment Right eye Seizures GARY (stress urinary incontinence, female) 02/02/2018 Unilateral AKA, right Current Medications: Current Outpatient Medications Medication Sig Dispense Refill isosorbide mononitrate 30 mg 24 hr tablet Take 1 tablet by mouth daily. 90 tablet 1 insulin NPH and regular human 70-30 (NOVOLIN 70/30 U-100 INSULIN) 100 unit/ mL (70-30) injection Inject 80 units AM, 90 units PM 6 Vial 3 FUROSEMIDE 20 mg tablet TAKE 1 TABLET BY MOUTH ONCE DAILY 90 tablet 1 atorvastatin (LIPITOR) 40 mg tablet Take 1 tablet by mouth at bedtime. 90 tablet 1 clopidogrel (PLAVIX) 75 mg tablet Take 1 tablet by mouth daily. 90 tablet 1 DULoxetine 30 mg capsule Take 1 capsule by mouth daily. 90 capsule 1 pantoprazole 40 mg EC tablet Take 1 tablet by mouth daily. 90 tablet 1 potassium chloride 10 mEq CR tablet Take 1 tablet by mouth daily. 90 tablet 1 metoprolol tartrate 25 mg tablet Take 1 tablet by mouth daily. 90 tablet 1 levETIRAcetam 500 mg tablet 2 metFORMIN 500 mg tablet Take 2 tablets by mouth 2 (two) times daily with meals. You can do two pills in the morning and one in the evening. 360 tablet 3 aspirin (ASPIRIN LOW DOSE) 81 mg EC tablet Take 81 mg by mouth daily. albuterol 90 mcg/actuation inhaler Inhale 2 Puffs every 6 (six) hours as needed for Wheezing or Shortness of Breath. 1 Inhaler 1 nitroglycerin 0.4 mg sublingual tablet 1 tab SL q5min up to 3 doses PRN chest pain, then activate 911. 25 tablet 0 phenazopyridine 200 mg tablet Take 1 tablet by mouth 3 (three) times daily. 9 tablet 0 Nitrofurantoin&Nit. Macrocryst (MACROBID) 100 mg capsule Take 1 capsule by mouth daily. 30 capsule 2 gabapentin 800 mg tablet Take 1 tablet by mouth 3 (three) times daily. 270 tablet 2 Insulin Syringe-Needle U-100 (INSULIN SYRINGE) 1 mL 30 gauge x 5/16 Syrg Use as directed 180 Syringe 3 No current facility-administered medications for this visit. [...] Smokeless tobacco: Never Used Tobacco comment: quit 2013 Substance and Sexual Activity Alcohol use: No Drug use: Yes Sexual activity: Yes Partners: Male control/protection: Surgical Lifestyle Physical activity: Days per week: Not on file Minutes per session: Not on file Stress: Not on file Relationships Social connections: Talks on phone: Not on file Gets together: Not on file Attends denominational service: Not on file Active member of [...] History Narrative No domestic abuse or violence. Confucianism Preference ; none Family History Family History [...] Psychiatry NoFHx Osteoporosis NoFHx Physical Examination: BP (!) 145/88 (BP Location: Right arm, Patient Position: Sitting, BP CUFF SIZE: Adult Small) | Pulse 92 | Resp 19 | Ht 5' 4" (1.626 m) | Wt 177 lb 8 oz ( 80.5 kg) | SpO2 99% | BMI 30.47 kg/m Constitutional: alert and oriented x 3 [...] Normal sinus rhythm. Cannot rule out anterior ID 02/04/2019 ---reviewed by me---EKG: Normal sinus rhythm. Cannot rule out anterior ID Echocardiogram: 2017--LVEF 45-50% 2017--Normal LVEF Stress Test: 2016 nuclear stress test--anterior ischemia HOWARD--Normal. Arterial duplex--Collaterals. Reduced velocity. Mild disease, etc. Assessment/Plan: ICD-10-CM ICD-9-CM 1. Coronary artery disease involving [place] coronary artery of [place] heart without angina pectoris I25.10 414.01 2. Essential hypertension I10 401.9 3. PAD (peripheral artery disease) I73.9 443.9 4. Hyperlipidemia, unspecified hyperlipidemia type E78.5 272.4 5. Chronic heart failure with preserved ejection fraction I50.32 428.9 6. H/O right coronary artery stent placement Z95.5 V45.82 7. Abnormal nuclear stress test R94.39 794.39 Chest pain--Atypical but with significant cardiac history. Abnormal nuc stress test in 2015 and 2018. Will schedule LHC and possible PCI. We will request CABG report again. Risk and benefit discussed in detail. CAD--ID x 2. S/p CABG and redo CABG. S/p PCI. Nuclear stress test in 2015 and 2018 showed anterior ischemia. Off ranexa. Continue ASA/plavix/lipitor/ metoprolol/Imdur. HFpEF--Volume status is good. On lasix. LVEF normal. No significant symptoms. PAD--No intervention needed per vascular testing. DM--Uncontrolled. On insulin. HLD--Goal LDL <70. High intensity lipitor. Will repeat lipid panel. Patient was counseled for lifestyle modifications including: diet, weight loss and smoking cessation. RTC after C Lily Jenkins MD, [facility] [employer] Geography Teacher, Division of Cardiology [facility] documented in this encounter Plan of Treatment Date Type Specialty Care Team Description 09/20/2019 Office Visit Endocrinology Diabetes & Anatoly Flores MD Metabolism [address] [place] [phone] 10/07/2019 Office Visit Obstetrics & Gynecology Muna Weeks PA-C [address] [place] [phone] 11/06/2019 Office Visit Cardiology Lily Jenkins MD [address] [place] [address] [address] [place], [place] [phone] Name Type Priority Associated Diagnoses Order Schedule aPTT LAB Routine Essential hypertension 1 Occurrences Coronary artery disease starting 08/05/2019 involving [place] until 11/05/2019 coronary artery of [place] heart without angina pectoris PAD (peripheral artery disease) Hyperlipidemia, unspecified hyperlipidemia type Chronic heart failure with preserved ejection fraction H/O right coronary artery stent placement Abnormal nuclear stress test BASIC METABOLIC LAB Routine Essential hypertension 1 Occurrences PANEL (NA, K, CL, Coronary artery disease starting 08/05/2019 CO2, GLUCOSE, BUN, involving [place] until 11/05/2019 CREATININE, CA) coronary artery of [place] heart without angina pectoris PAD (peripheral artery disease) Hyperlipidemia, unspecified hyperlipidemia type Chronic heart failure with preserved ejection fraction H/O right coronary artery stent placement Abnormal nuclear stress test PROFILE / HEMOGRAM LAB Routine Essential hypertension 1 Occurrences Coronary artery disease starting 08/05/2019 involving [place] until 11/03/2019 coronary artery of [place] heart without angina pectoris PAD (peripheral artery disease) Hyperlipidemia, unspecified hyperlipidemia type Chronic heart failure with preserved ejection fraction H/O right coronary artery stent placement Abnormal nuclear stress test PROTHROMBIN TIME / LAB Routine Essential hypertension 1 Occurrences INR Coronary artery disease starting 08/05/2019 involving [place] until 11/05/2019 coronary artery of [place] heart without angina pectoris PAD (peripheral artery disease) Hyperlipidemia, unspecified hyperlipidemia type Chronic heart failure with preserved ejection fraction H/O right coronary artery stent placement Abnormal nuclear stress test LIPID PANEL LAB Routine Essential hypertension 1 Occurrences (65483)(TOTAL Coronary artery disease starting 08/05/2019 CHOLESTEROL, involving [place] until 11/05/2019 TRIGLYCERIDES, HDL) coronary artery of [place] heart without angina pectoris PAD (peripheral artery disease) Hyperlipidemia, unspecified hyperlipidemia type Chronic heart failure with preserved ejection fraction H/O right coronary artery stent placement Abnormal nuclear stress test EKG-12 LEAD ROUTINE HEART STATION Routine Essential hypertension 1 Occurrences Coronary artery disease starting 08/05/2019 involving [place] until 11/03/2019 coronary artery of [place] heart without angina pectoris PAD (peripheral artery disease) Hyperlipidemia, unspecified hyperlipidemia type Chronic heart failure with preserved ejection fraction H/O right coronary artery stent placement Abnormal nuclear stress test Health Maintenance Due Date Last Done Comments EYE EXAM 1982 Breast Cancer Screening 11/06/2018 11/06/2017 (MAMMOGRAM) URINE MICROALBUMIN 09/01/2019 08/31/2018, 05/19/2017 HgA1C 11/09/2019 05/10/2019, 08/31/2018, 04/27/2018, Additional history exists CREATININE (SERUM) 03/26/2020 03/26/2019, 10/28/2018, 08/31/2018, Additional history exists DTaP,Tdap,and Td Vaccines 03/26/2020 Postponed from (1 - Tdap) 1983 (Refused) INFLUENZA VACCINE (#1) 2020 Postponed from 01/27/2019 (Refused) LDL-C 03/26/2020 03/26/2019 PNEUMOCOCCAL 0-64 YEARS 03/26/2020 Postponed from COMBINED SERIES (1 of 1 - 1978 (Refused) PPSV23) FOOT EXAM 05/10/2020 05/10/2019, 05/10/2019, 01/04/2019, Additional history exists PAP SMEAR 09/25/2020 09/25/2017 documented as of this encounter Results Not on filedocumented in this encounter Visit Diagnoses Diagnosis Coronary artery disease involving [place] coronary artery of [place] heart without angina pectoris - Primary Essential hypertension Unspecified essential hypertension PAD (peripheral artery disease) Unspecified disorders of arteries and arterioles Hyperlipidemia, unspecified hyperlipidemia type Chronic heart failure with preserved ejection fraction H/O right coronary artery stent placement Postsurgical percutaneous transluminal coronary angioplasty status Abnormal nuclear stress test Other nonspecific abnormal cardiovascular system function study documented in this encounter Insurance Payer Benefit Plan / Subscriber ID Effective Dates Phone Address Type Group MEDICARE MEDICARE PART xxxxxxxxxxx 2017-Justin [phone] Medicare [address] [place] [address] [id number] [place] [id number] documented as of this encounter
--- OUTSIDE RECORDS SUMMARY | 2019-08-12 02:05 | XMS REPORT | Summary of Care ---
:1970 Author Organization [facility] - [facility] Address [address] [place] [id number] Care Team Providers Name Role Phone Fabby Meléndez Klyah Unavailable Dev Zavala MD Primary Care Provider Serena Garsia MD Unavailable Reason for Referral (Routine) Status Reason Specialty Diagnoses / Procedures Referred By Referred To Contact Contact New Request Cardiology Diagnoses Essential hypertension Coronary artery disease involving [place] coronary artery of [place] heart without angina pectoris PAD (peripheral artery disease) Hyperlipidemia, unspecified hyperlipidemia type Lily Jenkins, Chronic heart failure with preserved ejection fraction H/O right coronary artery stent placement Abnormal nuclear stress test MD Procedures Cardiac Cath Request for Service (Cardiology Use Only) [address] [place] [address] [address] [place] [address] Reason for Visit Reason Comments Follow-up 6mo Encounter Details Date Type Department Care Team Description 08/05/2019 Office Visit [facility] Lily Jenkins MD Coronary artery disease involving [place] coronary artery of [place] heart without angina pectoris (Primary Dx); Cardiology- [address] Essential hypertension; [address] [facility] PAD (peripheral artery disease); [address], [address] Hyperlipidemia, unspecified hyperlipidemia type; [place] [address] Chronic heart failure with preserved ejection fraction; [address] H/O right coronary artery stent placement; [phone] Abnormal nuclear stress test Allergies Active Allergy [...] Problem Noted Date Coronary artery disease involving [place] coronary artery of [place] heart 08/04 without angina pectoris PAD (peripheral artery disease) 08/05/2019 Chronic heart failure with preserved ejection fraction 08/05/2019 GARY (stress urinary incontinence, female) 02/02/2018 Overview: Added automatically from request for surgery [id number] GERD (gastroesophageal reflux disease) DM (diabetes mellitus) [...] amputation. At age of 42 she had PA and underwent CABG x 3. At age of 45 she had another PA and underwent redo CABG x 2. In [...] no revascularizable lesions. She was admitted to [facility] for genital area infection. Has chest pain [...] (congestive heart failure) Coronary artery disease involving [place] coronary artery of [place] heart without angina pectoris08/05/2019 CVA (cerebral vascular [...] History Narrative No domestic abuse or violence. Restorationist Preference ; none Family History Family History [...] Normal sinus rhythm. Cannot rule out anterior PA 02/04/2019 ---reviewed by me---EKG: Normal sinus rhythm. Cannot rule out anterior PA Echocardiogram: 2017--LVEF 45-50% 2017--Normal LVEF Stress Test: 2016 nuclear stress test--anterior ischemia HOWARD--Normal. Arterial duplex--Collaterals. Reduced velocity. Mild disease, etc. Assessment/Plan: ICD-10-CM ICD-9-CM 1. Coronary artery disease involving [place] coronary artery of [place] heart without angina pectoris I25.10 414.01 2. [...] again. Risk and benefit discussed in detail. CAD--PA x 2. S/p CABG and redo CABG. [...] cessation. RTC after C Lily Jenkins MD, [facility] Warrant Clerk, Division of Cardiology [facility] documented in this encounter Plan of Treatment Date Type Specialty Care Team Description 09/20/2019 Office Visit Endocrinology Diabetes & Anatoly Flores MD Metabolism [address] [place] [phone] 10/07/2019 Office Visit Obstetrics & Gynecology Muna Weeks PA-C [address] [place] [phone] 11/06/2019 Office Visit Cardiology Lily Jenkins MD [address] [place] [address] [address] [place], [place] [phone] Name Type Priority Associated Diagnoses Order Schedule aPTT LAB Routine Essential hypertension 1 Occurrences Coronary artery disease starting 08/05/2019 involving [place] until 11/05/2019 coronary artery of [place] heart without angina pectoris PAD (peripheral artery disease) Hyperlipidemia, unspecified hyperlipidemia type Chronic heart failure with preserved ejection fraction H/O right coronary artery stent placement Abnormal nuclear stress test BASIC METABOLIC LAB Routine Essential hypertension 1 Occurrences PANEL (NA, K, CL, Coronary artery disease starting 08/05/2019 CO2, GLUCOSE, BUN, involving [place] until 11/05/2019 CREATININE, CA) coronary artery of [place] heart without angina pectoris PAD (peripheral artery disease) Hyperlipidemia, unspecified hyperlipidemia type Chronic heart failure with preserved ejection fraction H/O right coronary artery stent placement Abnormal nuclear stress test PROFILE / HEMOGRAM LAB Routine Essential hypertension 1 Occurrences Coronary artery disease starting 08/05/2019 involving [place] until 11/03/2019 coronary artery of [place] heart without angina pectoris PAD (peripheral artery disease) Hyperlipidemia, unspecified hyperlipidemia type Chronic heart failure with preserved ejection fraction H/O right coronary artery stent placement Abnormal nuclear stress test PROTHROMBIN TIME / LAB Routine Essential hypertension 1 Occurrences INR Coronary artery disease starting 08/05/2019 involving [place] until 11/05/2019 coronary artery of [place] heart without angina pectoris PAD (peripheral artery disease) Hyperlipidemia, unspecified hyperlipidemia type Chronic heart failure with preserved ejection fraction H/O right coronary artery stent placement Abnormal nuclear stress test LIPID PANEL LAB Routine Essential hypertension 1 Occurrences (62932)(TOTAL Coronary artery disease starting 08/05/2019 CHOLESTEROL, involving [place] until 11/05/2019 TRIGLYCERIDES, HDL) coronary artery of [place] heart without angina pectoris PAD (peripheral artery disease) Hyperlipidemia, unspecified hyperlipidemia type Chronic heart failure with preserved ejection fraction H/O right coronary artery stent placement Abnormal nuclear stress test EKG-12 LEAD ROUTINE HEART STATION Routine Essential hypertension 1 Occurrences Coronary artery disease starting 08/05/2019 involving [place] until 11/03/2019 coronary artery of [place] heart without angina pectoris PAD (peripheral artery [...] Visit Diagnoses Diagnosis Coronary artery disease involving [place] coronary artery of [place] heart without angina pectoris - Primary Essential [...] BOX Medicare A & B nt 2 [id number] [place] [phone] documented as of this encounter
--- OUTSIDE RECORDS SUMMARY | 2019-08-12 02:05 | XMS REPORT | Summary of Care ---
:1970 Author Organization [facility] Address [address] [place] [address] Care Team Providers Name Role Phone Fabby Meléndez Unavailable Dev Zavala MD Primary Care Provider Serena Garsia MD Unavailable Reason for Visit Reason Comments Appointment [facility] Encounter Details Date Type Department Care Team Description 08/07/2019 Telephone [facility] [place] Lily Jenkins MD Appointment ([facility]) Cardiac Catheterization Lab [address] [place] [address], [address], [address] [place] [address] [place] [address] Allergies Active Allergy Reactions Severity Noted Date Comments Ketorolac Tromethamine Hives 12/15/2016 Tramadol Hives 12/15/2016 documented as of this encounter (statuses as of 08/07/2019) Medications Medication Sig Dispensed Refills Start Date End Date Status aspirin (ASPIRIN LOW Take 81 mg by [...] Neuropathy (three) times daily. metFORMIN 500 mg tablet Take 2 tablets 360 tablet 3 08/31/2018 Active by mouth 2 (two) times daily with meals. You can do two pills in the morning and one in the evening. Nitrofurantoin&Nit. Take 1 capsule 30 capsule 2 09/20/2018 Active Macrocryst (MACROBID) by mouth daily. 100 mg capsuleIndications: Recurrent UTI levETIRAcetam 500 mg 2 09/01/2018 Active tablet phenazopyridine 200 mg Take 1 tablet 9 tablet 0 10/28/2018 Active tabletIndications: by mouth 3 Recurrent UTI (three) times daily. metoprolol tartrate 25 Take 1 tablet 90 tablet 1 11/30/2018 Active mg tabletIndications: by mouth daily. Essential hypertension atorvastatin (LIPITOR) Take 1 tablet 90 tablet 1 03/26/2019 Active 40 mg by mouth at tabletIndications: High bedtime. cholesterol clopidogrel (PLAVIX) 75 Take 1 tablet 90 tablet 1 03/26/2019 Active mg tabletIndications: by mouth daily. H/O right coronary artery stent placement DULoxetine 30 mg Take 1 capsule 90 capsule 1 03/26/2019 Active capsuleIndications: by mouth daily. Anxiety and depression, Peripheral neuropathic pain pantoprazole 40 mg EC Take 1 tablet 90 tablet 1 03/26/2019 Active tabletIndications: by mouth daily. Gastroesophageal reflux disease, esophagitis presence not specified potassium chloride 10 Take 1 tablet 90 tablet 1 03/26/2019 Active mEq CR by mouth daily. tabletIndications: Hypokalemia albuterol 90 Inhale 2 Puffs 1 Inhaler 1 03/26/2019 Active mcg/actuation every 6 (six) inhalerIndications: hours as needed Persistent cough, for Wheezing or Tobacco use, Wheezing Shortness of Breath. nitroglycerin 0.4 mg 1 tab SL q5min 25 tablet 0 03/26/2019 Active sublingual up to 3 doses tabletIndications: H/O PRN chest pain, right coronary artery then activate stent placement 911. FUROSEMIDE 20 mg TAKE 1 TABLET 90 tablet 1 05/08/2019 Active tabletIndications: BY MOUTH ONCE Congestive heart DAILY failure, unspecified HF chronicity, unspecified heart failure type insulin NPH and regular Inject 80 units 6 Vial 3 05/10/2019 Active human 70-30 (NOVOLIN AM, 90 units PM 70/30 U-100 INSULIN) 100 unit/mL (70-30) injectionIndications: Type 2 diabetes mellitus with diabetic peripheral angiopathy without gangrene, with long-term current use of insulin isosorbide mononitrate Take 1 tablet 90 tablet 1 08/05/2019 Active 30 mg 24 hr by mouth daily. tabletIndications: H/O right coronary artery stent placement documented as of this encounter (statuses as of 08/07/2019) Active Problems Problem Noted Date Coronary artery disease involving [place] coronary artery of [place] heart 08/04 without angina pectoris PAD (peripheral artery disease) 08/05/2019 Chronic heart failure with preserved ejection fraction 08/05/2019 GARY (stress urinary incontinence, female) 02/02/2018 Overview: Added automatically from request for surgery [id number] GERD (gastroesophageal reflux disease) DM (diabetes mellitus) Depression CVA (cerebral vascular accident) CHF (congestive heart failure) Anxiety Angina pectoris H/O right coronary artery stent placement High cholesterol HTN (hypertension) Hx of CABG Migraines Seizures Unilateral AKA, right documented as of this encounter (statuses as of 08/07/2019) Social History Tobacco Use Types Packs/Day Years [...] Treatment Date Type Specialty Care Team Description 08/16/2019 Appointment Cardiac Coat Ironer Hand Outpt-Renato Del Toro 09/20/2019 Office Visit Endocrinology Diabetes & Anatoly Flores MD Metabolism [address] [place] [address] [phone] 10/07/2019 Office Visit Obstetrics & Gynecology Muna Weeks PA-C [address] [place] [address] [phone] 11/06/2019 Office Visit Cardiology Lily Jenkins MD [address] [place] [address] [address] [place] [address] [phone] Health Maintenance Due Date Last Done Comments [...] 03/26/2020 Postponed from COMBINED SERIES (1 of - 1978 (Refused) PPSV23) FOOT EXAM 05/10/2020 05/10/2019, 05/10/2019, 01/04/2019, Additional history exists PAP SMEAR 09/25/2020 09/25/2017 documented as of this encounter Results Not on filedocumented in this encounter Insurance Payer Benefit Plan / Subscriber ID Effective Dates Phone Address Type Group MEDICARE MEDICARE PART xxxxxxxxxxx 2017-Justin [phone] [address] Medicare A & B nt 2 [id number] [place] [phone] documented as of this encounter
--- OUTSIDE RECORDS SUMMARY | 2019-08-12 02:05 | XMS REPORT | Summary of Care ---
:1970 Author Organization [facility] - [facility] Address [address] [place] [address] Care Team Providers Name Role Phone Fabby Meléndez Kylah Unavailable Dev Zavala MD Primary Care Provider Serena Garsia MD Unavailable Reason for Referral (Routine) Status Reason Specialty Diagnoses / Procedures Referred By Referred To Contact Contact New Request Cardiology Diagnoses Essential hypertension Coronary artery disease involving [place] coronary artery of [place] heart without angina pectoris PAD (peripheral artery disease) Hyperlipidemia, unspecified hyperlipidemia type Lily Jenkins, Chronic heart failure with preserved ejection fraction H/O right coronary artery stent placement Abnormal nuclear stress test MD Procedures Cardiac Cath Request for Service (Cardiology Use Only) [address] [place] [address] [address] [place] [address] Reason for Visit Reason Comments Follow-up 6mo Encounter Details Date Type Department Care Team Description 08/05/2019 Office Visit [facility] Lily Jenkins MD Coronary artery disease involving [place] coronary artery of [place] heart without angina pectoris (Primary Dx); Cardiology- [address] Essential hypertension; [facility] PAD (peripheral artery disease); Drive, [address] Hyperlipidemia, unspecified hyperlipidemia type; [place] [address] Chronic heart failure with preserved ejection fraction; [id number] H/O right coronary artery stent placement; [phone] Abnormal nuclear stress test Allergies Active Allergy Reactions Severity Noted Date Comments Ketorolac Tromethamine Hives 12/15/2016 Tramadol Hives 12/15/2016 documented as of this encounter (statuses as of 08/06/2019) Medications Medication Sig Dispensed Refills Start End [...] as of this encounter (statuses as of 08/06/2019) Active Problems Problem Noted Date Coronary artery disease involving [place] coronary artery of [place] heart 08/04 without angina pectoris PAD (peripheral artery disease) 08/05/2019 Chronic heart failure with preserved ejection fraction 08/05/2019 GARY (stress urinary incontinence, female) 02/02/2018 Overview: Added automatically from request for surgery [id number] GERD (gastroesophageal reflux disease) DM (diabetes mellitus) Depression CVA (cerebral vascular accident) CHF (congestive heart failure) Anxiety Angina pectoris H/O right coronary artery stent placement High cholesterol HTN (hypertension) Hx of CABG Migraines Seizures Unilateral AKA, right documented as of this encounter (statuses as of 08/06/2019) Social History Tobacco Use Types Packs/Day Years [...] PAD s/p R leg above the knee amputation (R EIA and R COAL CARRIER stenting). At age of 42 she had ID and underwent CABG x 3. At age of 45 she had another ID and underwent redo CABG x 2. In 2014 she underwent PCI to RCA. Nuclear stress test in 2016 showed anterior ischemia. Has been having chest pain a few times a month. It occurs randomly not necessarily during exertion. It is precordial pain radiating to the back, relieved by NTG in 5 mins. Sometimes has chest pain at night. Has been SOB. She doesnot ambulate due to imbalance. ECHO in 06/2016 showed 45-50%. Left foot pain at night. Last visit we added Imdur. Her chest pain has improved. HOWARD is normal. Arterial duplex showed some PAD but no revascularizable lesions. She was admitted to [facility] for genital area infection. Has chest pain at that time too. Since last visit she stopped Imdur. Several episodes of chest pain--pressure, non exertional, lasting minutes. [facility] 08/2015 LAD--entire LAD diffusely diseased. A small GIBSON to mid LAD. Diagonal bypass is occluded. RCA--cannot be engaged. Bypass to RCA is patent but distal to the anastomosis there is a bifurcated RCA with 90% stenosis of both branches. LCx diffusely diseased. One of the 3 branches has a high grade ostial stenosis Redo CABG 08/2015 ENEDELIA to LAD, SVG to PDA Nuclear stress test 01/2019 SPECT imaging reveals [...] (congestive heart failure) Coronary artery disease involving [place] coronary artery of [place] heart without angina pectoris08/05/2019 CVA (cerebral vascular [...] History Narrative No domestic abuse or violence. [employer] Preference ; none Family History Family History [...] rhythm. Cannot rule out anterior ID Echocardiogram: 2016--LVEF 45-50% 2018--Normal LVEF Stress Test: 2016 nuclear stress test--anterior ischemia HOWARD--Normal. Arterial duplex--Collaterals. Reduced velocity. Mild disease, etc. Assessment/Plan: ICD-10-CM ICD-9-CM 1. Coronary artery disease involving [place] coronary artery of [place] heart without angina pectoris I25.10 414.01 2. [...] cessation. RTC after C Lily Jenkins MD, [facility] Crane Operator, Division of Cardiology [facility] documented in this encounter Plan of Treatment Date Type Specialty Care Team Description 09/20/2019 Office Visit Endocrinology Diabetes & Anatoly Flores MD Metabolism [address] [place] [address] [phone] 10/07/2019 Office Visit Obstetrics & Gynecology Muna Weeks PA-C [address] [place] [phone] [phone] 11/06/2019 Office Visit Cardiology Lily Jenkins MD [address] [place] [address] [address] [place] [address] [phone] Name Type Priority Associated Diagnoses Order Schedule aPTT LAB Routine Essential hypertension 1 Occurrences Coronary artery disease starting 08/05/2019 involving [place] until 11/05/2019 coronary artery of [place] heart without angina pectoris PAD (peripheral artery disease) Hyperlipidemia, unspecified hyperlipidemia type Chronic heart failure with preserved ejection fraction H/O right coronary artery stent placement Abnormal nuclear stress test BASIC METABOLIC LAB Routine Essential hypertension 1 Occurrences PANEL (NA, K, CL, Coronary artery disease starting 08/05/2019 CO2, GLUCOSE, BUN, involving [place] until 11/05/2019 CREATININE, CA) coronary artery of [place] heart without angina pectoris PAD (peripheral artery disease) Hyperlipidemia, unspecified hyperlipidemia type Chronic heart failure with preserved ejection fraction H/O right coronary artery stent placement Abnormal nuclear stress test PROFILE / HEMOGRAM LAB Routine Essential hypertension 1 Occurrences Coronary artery disease starting 08/05/2019 involving [place] until 11/03/2019 coronary artery of [place] heart without angina pectoris PAD (peripheral artery disease) Hyperlipidemia, unspecified hyperlipidemia type Chronic heart failure with preserved ejection fraction H/O right coronary artery stent placement Abnormal nuclear stress test PROTHROMBIN TIME / LAB Routine Essential hypertension 1 Occurrences INR Coronary artery disease starting 08/05/2019 involving [place] until 11/05/2019 coronary artery of [place] heart without angina pectoris PAD (peripheral artery disease) Hyperlipidemia, unspecified hyperlipidemia type Chronic heart failure with preserved ejection fraction H/O right coronary artery stent placement Abnormal nuclear stress test LIPID PANEL LAB Routine Essential hypertension 1 Occurrences (39623)(TOTAL Coronary artery disease starting 08/05/2019 CHOLESTEROL, involving [place] until 11/05/2019 TRIGLYCERIDES, HDL) coronary artery of [place] heart without angina pectoris PAD (peripheral artery disease) Hyperlipidemia, unspecified hyperlipidemia type Chronic heart failure with preserved ejection fraction H/O right coronary artery stent placement Abnormal nuclear stress test EKG-12 LEAD ROUTINE HEART STATION Routine Essential hypertension 1 Occurrences Coronary artery disease starting 08/05/2019 involving [place] until 11/03/2019 coronary artery of [place] heart without angina pectoris PAD (peripheral artery [...] Visit Diagnoses Diagnosis Coronary artery disease involving [place] coronary artery of [place] heart without angina pectoris - Primary Essential [...] O. BOX Medicare A & B 2 [id number] [place] [phone] documented as of this encounter
--- OUTSIDE RECORDS SUMMARY | 2019-08-12 02:06 | XMS REPORT | Summary of Care ---
:1970 Author Organization [facility] - [facility] Address [address] [place] [address] Care Team Providers Name Role Phone Fabby Meléndez Unavailable Dev Zavala MD Primary Care Provider Serena Garsia MD Unavailable Reason for Visit Reason Comments Pre-Visit Planning Encounter Details Date Type Department Care Team Description 08/09/2019 Telephone [facility] [place] Lily Jenkins MD Pre-Visit Planning Cardiac Catheterization [address] [facility], [address]th [address] [place] [address] 7[address] [facility] [address] [place] [address] [phone] Allergies Active Allergy Reactions Severity Noted Date Comments Ketorolac Tromethamine Hives 12/15/2016 Tramadol Hives 12/15/2016 documented as of this encounter (statuses as of 08/09/2019) Medications Medication Sig Dispensed Refills Start Date [...] as of this encounter (statuses as of 08/09/2019) Active Problems Problem Noted Date Coronary artery disease involving [place] coronary artery of [place] heart 08/04 without angina pectoris PAD (peripheral artery disease) 08/05/2019 Chronic heart failure with preserved ejection fraction 08/05/2019 GARY (stress urinary incontinence, female) 02/02/2018 Overview: Added automatically from request for surgery [id number] GERD (gastroesophageal reflux disease) DM (diabetes mellitus) Depression CVA (cerebral vascular accident) CHF (congestive heart failure) Anxiety Angina pectoris H/O right coronary artery stent placement High cholesterol HTN (hypertension) Hx of CABG Migraines Seizures Unilateral AKA, right documented as of this encounter (statuses as of 08/09/2019) Social History Tobacco Use Types Packs/Day Years [...] Specialty Care Team Description 08/16/2019 Appointment Cardiac Junior Art Director Outpt-Renato Del Toro 09/20/2019 Office Visit Endocrinology Diabetes & Anatoly Flores MD Metabolism [address] [place] [address] [phone] 10/07/2019 Office Visit Obstetrics & Gynecology Muna Weeks PA-C [address] [place] [address] [phone] 11/06/2019 Office Visit Cardiology Lily Jenkins MD [address] [place] [address] [address] [place] [address] [phone] Health Maintenance Due Date Last Done Comments [...] Type Group MEDICARE MEDICARE PART xxxxxxxxxxx 2017-Justin [phone] [address] Medicare A & B nt 2 [id number] [place] [id number] documented as of this encounter
[2019-08-12] MEDS ORDERED: ONDANSETRON 4 MG/2 ML VIAL ONE (02:30)
[2019-08-12] MEDS ORDERED: MORPHINE 4 MG/ML SYR ONE ×2 (02:30→06:17)
[2019-08-12 02:57] LABS: Protime INR 0.96
[2019-08-12 02:58] LABS: Absolute Lymphocytes (CBC) 1.9 K/uL (0.7-4.9); Hematocrit 40.7 % (36.0-45.0); Lymphocytes % 15.1 % (15.3-44.8); MPV 8.7 fL (7.6-11.3); RBC Red Blood Cell Count 4.57 M/uL (3.86-4.86)
[2019-08-12 03:11] LABS: ALT/SGPT 19 U/L (12-78); AST/SGOT 11 U/L (15-37); Albumin 2.7 g/dL (3.4-5.0); Alkaline Phosphatase 99 U/L (45-117); BUN Blood Urea Nitrogen 18 mg/dL (7-18); Bicarbonate 24 mmol/L (21-32); Bilirubin Direct < 0.1 mg/dL (0-0.2); Bilirubin Total 0.2 mg/dL (0.2-1.0); Glucose Level 354 mg/dL (74-106); Magnesium 1.5 mg/dL (1.8-2.4); NT PRO-BNP 670 pg/mL (<125); Potassium 3.6 mmol/L (3.5-5.1); Protein, Total 6.8 g/dL (6.4-8.2); Sodium Level 136 mmol/L (136-145); Troponin (Emerg Dept Use Only) < 0.02 ng/mL (0.0-0.045)
[2019-08-12] MEDS ORDERED: ALPRAZOLAM 0.25 MG TABLET PO PRN (03:33)
[2019-08-12] MEDS ORDERED: ACETAMINOPHEN 500 MG TAB PO PRN (03:33)
--- NOTE | 2019-08-12 03:33 | ER ---
Nurse's Notes [facility] Name: Karen Shah Age: 49 yrs Sex: Female : 1970 Arrival Date: 08/12/2019 Time: 01:59 Bed 6 Private MD: Diagnosis: Unstable angina Presentation: 08/11 02:04 Chief complaint: Patient states: Watery, diarrhea for several days, reports having CP sg that started two days ago, and is worsening today, states has an appointment for cardiac cath with in [place]. Coronavirus screen: The patient has NOT traveled to a country currently being monitored by the [facility] within the last 14 days. The patient has NOT had contact with any known and/or suspected case of coronavirus. Ebola Screen: Patient negative for fever greater than or equal to 101.5 degrees Fahrenheit, and additional compatible Ebola Virus Disease symptoms Patient denies exposure to infectious person. Patient denies travel to an Ebola-affected area in the 21 days before illness onset. No symptoms or risks identified at this time. Initial Sepsis Screen: Does the patient meet any 2 criteria? Does the patient have a suspected source of infection? No. Patient's initial sepsis screen is negative. Risk Assessment: Do you want to hurt yourself or someone else? Patient reports no desire to harm self or others. 02:04 Method Of Arrival: Wheelchair sg 02:04 Acuity: ARIEL 3 sg 02:05 Onset of symptoms was August 10, 2019. 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 - Social history:: Smoking status: Patient denies any tobacco usage or history of. Screenin:00 Abuse screen: Denies threats or abuse. Denies injuries from another. Nutritional rr5 screening: No deficits noted. Tuberculosis screening: No symptoms or risk factors identified. Fall Risk IV access (20 points). Ambulatory Aid- None/Bed Rest/Nurse Assist (0 pts). Gait- Impaired (20 pts.). Total Mccall Fall Scale indicates Low Risk Score (25-44 pts). Fall prevention measures have been instituted. Side Rails Up X 2 Placed close to Nursing Station Frequent Obs/Assesments occuring Family Present and informed to notify staff if they need to leave bedside As available Patient and Family Educated on Fall Prevention Program and strategies. Assessment: 02:00 General: Appears in no apparent distress. uncomfortable, Behavior is calm, cooperative, rr5 appropriate for age. 02:00 Pain: Complains of pain in chest Pain does not radiate. Pain currently is 10 out of 10 rr5 on a pain scale. Quality of pain is described as aching, Pain began gradually, 2-3 days ago. Is intermittent. Neuro: Level of Consciousness is awake, alert, obeys commands, Oriented to person, place, time, situation, Appropriate for age. Cardiovascular: Reports chest pain, Capillary refill < 3 seconds Patient's skin is warm and dry. Respiratory: Airway is patent Respiratory effort is even, unlabored, Respiratory pattern is regular, symmetrical. GI: Abdomen is round non-distended, Reports nausea. : Reports incontinence. EENT: No signs and/or symptoms were reported regarding the EENT system. Derm: Skin is intact, is healthy with good turgor, Skin temperature is warm. Musculoskeletal: Amputation of right leg. Capillary refill < 3 seconds. 03:00 Reassessment: Patient appears in no apparent distress at this time. Patient and/or rr5 family updated on plan of care and expected duration. Pain level reassessed. Patient is alert, oriented x 3, equal unlabored respirations, skin warm/dry/pink. awaiting for results. 03:40 Reassessment: Patient appears in no apparent distress at this time. Patient is alert, rr5 oriented x 3, equal unlabored respirations, skin warm/dry/pink. for admission, patient agreed for the plan of care. 07:00 Reassessment: RECD REPORT FROM BHASKAR MURILLO. 49YO HF P/W CHEST PAIN, ADMIT IN PROCESS. bp SEE MEDITECH. Vital Signs: 02:00 BP 148 / 85; Pulse 103; Resp 19; Temp 98; Pulse Ox 99% ; Weight 80.29 kg; Pain 8/10; rr5 02:00 BP 127 / 69; Pulse 102; Resp 16; Pulse Ox 98% on R/A; rr5 03:00 BP 117 / 65; Pulse 115; Resp 19; Temp 98.1; Pulse Ox 99% on R/A; rr5 04:00 BP 122 / 85; Pulse 113; Resp 19; Pulse Ox 96% on R/A; rr5 05:00 BP 108 / 72; Pulse 105; Resp 17; Pulse Ox 97% ; rr5 ED Course: 01:59 Patient arrived in ED. cl3 02:02 Steven Gonzalez MD is Attending Physician. tw4 02:05 Triage completed. sg 02:05 Arm band placed on. sg 02:09 Bhaskar Kenny RN is Primary Nurse. rr5 02:10 Patient has correct armband on for positive identification. Bed in low position. Call rr5 light in reach. Side rails up X2. electronic device monitor on. Pulse ox on. NIBP on. 02:10 Warm blanket given. rr5 02:30 No provider procedures requiring assistance completed. Inserted saline lock: 20 gauge rr5 in right forearm, using aseptic technique. Blood collected. 02:30 Patient maintains SpO2 saturation greater than 95% on room air. rr5 03:32 Cory Hernandez MD is Hospitalizing Provider. tw4 04:00 Patient admitted, IV remains in place. intact, No redness/swelling at site. rr5 Administered Medications: 02:38 Drug: Zofran (Ondansetron) 4 mg Route: IVP; Site: right forearm; rr5 03:30 Follow up: Response: No adverse reaction rr5 02:41 Drug: morphine 4 mg {Note: rass 0.} Route: IVP; Site: right forearm; rr5 03:40 Follow up: Response: No adverse reaction; RASS: Alert and Calm (0) rr5 03:46 Drug: Lovenox 1 mg/kg Route: Sub-Q; Site: left lower abdomen; rr5 04:40 Follow up: Response: No adverse reaction rr5 03:46 Drug: Nitro-Bid Ointment 2 % 1 inches Route: Transdermal; Site: anterior chest wall; rr5 05:02 Follow up: Response: No adverse reaction rr5 Outcome: 03:32 Decision to Hospitalize by Provider. tw4 05:02 Admitted to ER Hold. Please see [facility] for further documentation. rr5 05:02 Condition: stable 05:02 Instructed on the need for admit. 13:30 Admitted to Tele accompanied by tech, via wheelchair, room 204, with chart, Report bp called to DEEP RN 13:54 Patient left the ED. bp Signatures: Adair Barnes RN RN sg Irineo Jackson RN RN Steven Quevedo MD MD tw4 Bhaskar Kenny RN RN rr5 Matthew Steen cl3 Corrections: (The following items were deleted from the chart) 05:00 02:00 : No signs and/or symptoms were reported regarding the genitourinary system. [id number]
--- NOTE | 2019-08-12 03:33 | EDPHYS ---
Physician Documentation [facility] Name: Karen Shah Age: 49 yrs Sex: Female : 1970 Arrival Date: 08/12/2019 Time: 01:59 Bed 6 Private MD: ED Physician Steven Gonzalez HPI: 08/12 00:24 This 49 yrs old Female presents to ER via Wheelchair with complaints of Chest tw4 Pain - began two days ago, Diarrhea. 00:24 The patient or guardian reports chest pain that is located primarily in the anterior tw4 chest wall. Onset: 2 day(s) ago. The pain does not radiate. Associated signs and symptoms: The patient has no apparent associated signs or symptoms. The chest pain is described as dull. Duration: The patient or guardian reports a single episode. Modifying factors: The symptoms are alleviated by nothing. the symptoms are aggravated by nothing. Severity of pain: At its worst the pain was moderate in the emergency department the pain is unchanged. 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 - Social history:: Smoking status: Patient denies any tobacco usage or history of. ROS: 08/12 00:24 Respiratory: Negative for shortness of breath, cough, wheezing, and pleuritic chest tw4 pain, Abdomen/GI: Negative for abdominal pain, nausea, vomiting, diarrhea, and constipation, Back: Negative for injury and pain, MS/Extremity: Negative for injury and deformity, Skin: Negative for injury, rash, and discoloration, Neuro: Negative for headache, weakness, numbness, tingling, and seizure. Cardiovascular: Positive for chest pain, Negative for edema, orthopnea, palpitations, paroxysmal nocturnal dyspnea. Exam: 00:24 Constitutional: This is a well developed, well nourished patient who is awake, alert, tw4 and in no acute distress. Head/Face: Normocephalic, atraumatic. Chest/axilla: Normal chest wall appearance and motion. Nontender with no deformity. No lesions are appreciated. Cardiovascular: Regular rate and rhythm with a normal S1 and S2. No gallops, murmurs, or rubs. Normal PMI, no JVD. No pulse deficits. Respiratory: Lungs have equal breath sounds bilaterally, clear to auscultation and percussion. No rales, rhonchi or wheezes noted. No increased work of breathing, no retractions or nasal flaring. Back: No spinal tenderness. No costovertebral tenderness. Full range of motion. Skin: Warm, dry with normal turgor. Normal color with no rashes, no lesions, and no evidence of cellulitis. MS/ Extremity: Pulses equal, no cyanosis. Neurovascular intact. Full, normal range of motion. Neuro: Awake and alert, GCS 15, oriented to person, place, time, and situation. Cranial nerves II-XII grossly intact. Motor strength 5/5 in all extremities. Sensory grossly intact. Cerebellar exam normal. Normal gait. Vital Signs: 08/11 02:00 BP 148 / 85; Pulse 103; Resp 19; Temp 98; Pulse Ox 99% ; Weight 80.29 kg; Pain 8/10; rr5 02:00 BP 127 / 69; Pulse 102; Resp 16; Pulse Ox 98% on R/A; rr5 03:00 BP 117 / 65; Pulse 115; Resp 19; Temp 98.1; Pulse Ox 99% on R/A; rr5 04:00 BP 122 / 85; Pulse 113; Resp 19; Pulse Ox 96% on R/A; rr5 05:00 BP 108 / 72; Pulse 105; Resp 17; Pulse Ox 97% ; rr5 MDM: 02:02 Patient medically screened. tw4 08/12 00:28 Differential diagnosis: abnormal EKG, acute myocardial infarction, acute pericarditis, tw4 coronary artery disease pulmonary embolus, thoracic aortic disection. HEART Score: History: Moderately Suspicious (1), ECG: Non specific repolarization disturbance / LBTB / PM (1), Age: > 45 and < 65 years (1), Risk Factors: > or = 3 Risk factors for atherosclerotic disease (2), Troponin: < or = 1 x Normal Limit (0), Total Score = 5. The patient was given aspirin in the Emergency Department. Data reviewed: vital signs, nurses notes. Data interpreted: Pulse oximetry: Interpretation: normal. Counseling: I had a detailed discussion with the patient and/or guardian regarding: the historical points, exam findings, and any diagnostic results supporting the discharge/admit diagnosis, lab results, radiology results. Medication response: Response to treatment: and as a result, I will admit patient. Physician consultation: Cory Hernandez MD regarding admission, to the telemetry unit. and will see patient in inpatient room. Special discussion: I discussed with the patient/guardian in detail that at this point there is no indication for admission to the hospital. It is understood, however, that if the symptoms persist or worsen the patient needs to return immediately for re-evaluation. 08/11 02:30 Order name: Basic Metabolic Panel; Complete Time: 03:08/11 03:26 Interpretation: Normal except: GLUC 354; GFR 47. 08/11 02:30 Order name: CBC with Diff; Complete Time: 03:08/11 03:27 Interpretation: Normal except: WBC 12.6; LYM% 15.1; MARICEL% 73.9; NEUT A 9.3. 08/11 02:30 Order name: LFT's; Complete Time: 03:08/11 03:27 Interpretation: Normal except: AST 11; ALB 2.7; GLOB 4.1; A/G 0.7. 08/11 02:30 Order name: Magnesium; Complete Time: 03:26 08/11 03:27 Interpretation: Abnormal: MG 1.5. 08/11 02:30 Order name: NT PRO-BNP; Complete Time: 03:08/11 03:27 Interpretation: Abnormal: NT PRO-BNP 670. 08/11 02:30 Order name: PT-INR; Complete Time: 03:08/11 03:27 Interpretation: Within normal limits: PT 11.4. 08/11 02:30 Order name: Troponin (emerg Dept Use Only); Complete Time: 03:26 rr5 08/11 03:27 Interpretation: Within normal limits: TROPED < 0.02. tw4 08/11 03:37 Order name: Basic Metabolic Panel EDMS 08/11 03:37 Order name: Basic Metabolic Panel EDMS 08/11 03:37 Order name: CBC with Automated Diff EDMS 08/11 03:37 Order name: CBC with Automated Diff EDMS 08/11 03:37 Order name: Lipid Profile EDMS 08/11 03:37 Order name: Lipid Profile EDMS 08/11 03:37 Order name: Troponin I EDMS 08/11 02:30 Order name: XRAY Chest (1 view) rr5 08/11 02:30 Order name: EKG; Complete Time: 02:30 rr5 08/11 02:30 Order name: Cardiac monitoring; Complete Time: 02:41 rr5 08/11 02:30 Order name: EKG - Nurse/Tech; Complete Time: 02:41 rr5 08/11 03:37 Order name: Heart Healthy EDMS 08/11 03:37 Order name: Echo with Doppler EDMS 08/11 03:37 Order name: EKG Electrocardiogram EDMS 08/11 03:37 Order name: EKG Electrocardiogram EDMS 08/11 03:37 Order name: Troponin I EDKS 08/11 03:38 Order name: Troponin I EDKS 08/11 08:42 Order name: RAD EDKS 08/11 08:55 Order name: Glucose, Ancillary Testing EDMS 08/11 02:30 Order name: IV Saline Lock; Complete Time: 02:41 rr5 08/11 02:30 Order name: Labs collected and sent; Complete Time: 02:41 rr5 08/11 02:30 Order name: O2 Per Protocol; Complete Time: 02:41 rr5 08/11 02:30 Order name: O2 Sat Monitoring; Complete Time: 02:41 rr5 EC/16 02:36 Rate is 106 beats/min. Rhythm is regular. QRS [place] is Normal. NV interval is normal. tw4 QRS interval is normal. QT interval is normal. No Q waves. T waves are Inverted in lead V2. T waves are Flattened in lead V3. No ST changes noted. Clinical impression: NSR w/ Non-specific ST/T Changes. Interpreted by me. Reviewed by me. Administered Medications: 02:38 Drug: Zofran (Ondansetron) 4 mg Route: IVP; Site: right forearm; rr5 03:30 Follow up: Response: No adverse reaction rr5 02:41 Drug: morphine 4 mg {Note: rass 0.} Route: IVP; Site: right forearm; rr5 03:40 Follow up: Response: No adverse reaction; RASS: Alert and Calm (0) rr5 03:46 Drug: Lovenox 1 mg/kg Route: Sub-Q; Site: left lower abdomen; rr5 04:40 Follow up: Response: No adverse reaction rr5 03:46 Drug: Nitro-Bid Ointment 2 % 1 inches Route: Transdermal; Site: anterior chest wall; rr5 05:02 Follow up: Response: No adverse reaction rr5 Disposition: 08/12/19 03:32 Hospitalization ordered by Cory Hernandez for Inpatient Admission. Preliminary diagnosis is Unstable angina. - Bed requested for Telemetry/MedSurg (Inpatient). - Status is Inpatient Admission. bp - Condition is Stable. - Problem is new. - Symptoms are unchanged. Signatures: Dispatcher [employer] EDMS Anjali Cespedes Martha, RN RN Adair Barnes RN RN Irineo Jackson RN CHIDI Steven Gonzalez MD MD [facility] [[email or web address]] Andrae Kenny, RN RN rr5 Corrections: (The following items were deleted from the chart) 03:46 03:32 Hospitalization Ordered by Cory Hernandez MD for Inpatient Admission. Preliminary mw diagnosis is Unstable angina. Bed requested for Telemetry/MedSurg (Inpatient). Status is Inpatient Admission. Condition is Stable. Problem is new. Symptoms are unchanged. [facility] [[email or web address]] 12:50 03:46 08/12/2019 03:32 Hospitalization Ordered by Cory Hernandez MD for Inpatient bd Admission. Preliminary diagnosis is Unstable angina. Bed requested for [facility] ER HOLD. Status is Inpatient Admission. Condition is Stable. Problem is new. Symptoms are unchanged. 13:54 12:50 08/12/2019 03:32 Hospitalization Ordered by Cory Hernandez MD for Inpatient bp Admission. Preliminary diagnosis is Unstable angina. Bed requested for Telemetry/MedSurg (Inpatient). Status is Inpatient Admission. Condition is Stable. Problem is new. Symptoms are unchanged. bd
[2019-08-12] MEDS ORDERED: NITROGLYCERIN 1 GM PKT TD ONE (03:42)
[2019-08-12] MEDS ORDERED: ENOXAPARIN 80 MG/0.8 ML SQ ONE (03:42)
[2019-08-12] MEDS: METOPROLOL TAR 50 MG TAB PO SCH ×2 (04:00→17:03)
[2019-08-12] MEDS ORDERED: METOPROLOL TAR 25 MG TAB ONE (04:33)
[2019-08-12 04:41] VITALS: BMI 30.4
[2019-08-12] MEDS: MORPHINE 4 MG/ML SYR IV PRN ×3 (06:16→18:32)
--- NOTE | 2019-08-12 06:55 | EKG ---
Test Date: 2019-08-12 Test Time: 02:13:19 Doormaker: JENNIFER MEASUREMENT RESULTS: Intervals: Rate: 106 PA: 138 QRSD: 78 QT: 354 QTc: 470 [place]: P: 48 PA: 138 QRS: -10 T: 58 INTERPRETIVE STATEMENTS: Sinus tachycardia Moderate voltage criteria for LVH, may be normal variant Possible Inferior infarct, age undetermined Anterior infarct, age undetermined Abnormal ECG Compared to ECG 11/07/2018 20:05:16 Sinus rhythm no longer present Myocardial infarct finding still present Electronically Signed On 08-12-19 06:54:35 CDT by Griffin Mejia
--- NOTE | 2019-08-12 06:55 | EKG ---
Test Date: 2019-08-12 Test Time: 06:04:53 [employer] Assistant: RR MEASUREMENT RESULTS: Intervals: Rate: 94 MT: 148 QRSD: 78 QT: 394 QTc: 492 [place]: P: 58 MT: 148 QRS: 10 T: 32 INTERPRETIVE STATEMENTS: Normal sinus rhythm Possible Anterior infarct, age undetermined Abnormal ECG Compared to ECG 08/12/2019 02:13:19 Sinus tachycardia no longer present Left ventricular hypertrophy no longer present Myocardial infarct finding still present Electronically Signed On 08-12-19 06:54:33 CDT by Griffin Mejia
[2019-08-12 06:58] LABS: HDL Cholesterol 39 mg/dL (40-60); LDL Cholesterol, Calculated 82 (<130); Troponin I < 0.02 ng/mL (0.0-0.045)
--- NOTE | 2019-08-12 07:33 | P.HP ---
Certification for Inpatient Patient admitted to: Observation With expected LOS: <2 Midnights Patient will require the following post-hospital care: None Practitioner: I am a practitioner with admitting privileges, knowledge of patient current condition, hospital course, and medical plan of care. Services: Services provided to patient in accordance with Admission requirements found in Title 42 Section 412.3 of the Code of Federal Regulations Patient History Date of Service: 08/12/19 Reason for admission: Chest pain rule out acute coronary syndrome History of Present Illness: Patient is a 49-year-old female with a history of coronary artery bypass grafting on 2 different occasions. She came into the hospital because she has been having chest pain. She had a stress test done a week ago at [facility] which she states was positive. She was scheduled to get a cardiac catheterization on Monday. However, she was having pain that was progressively worsening. There was no improvement. She has been taking her medications religiously. She decided come into the emergency room at our hospital because she says she prefers our hospital over [facility]. At this time will go ahead and admit her to the hospital and rule her out for an acute coronary syndrome. Will Consul Cardiology for their input as well. Allergies tramadol Allergy (Mild, Verified 12/29/18 21:16) Hives/Rash adhesive tape Allergy (Verified 12/30/18 02:54) Hives ketorolac [From Toradol] Allergy (Verified 12/29/18 21:16) Hives/Rash Home Medications: Ranolazine [Ranexa] 500 mg PO BID 05/15/17 Aspirin 81 mg PO DAILY #30 tab.chew 05/16/17 Atorvastatin Calcium [Lipitor] 40 mg PO BEDTIME #30 tab 05/16/17 Clopidogrel Bisulfate [Plavix] 75 mg PO DAILY #30 tablet 05/16/17 Duloxetine HCl 30 mg PO DAILY #30 capsule. 05/16/17 Furosemide 20 mg PO DAILY #30 tablet 05/16/17 Gabapentin 800 mg PO TID #120 tablet 05/16/17 Metoprolol Tartrate [Lopressor*] 25 mg PO DAILY #30 tab 05/16/17 levETIRAcetam [Levetiracetam] 500 mg PO BID #60 tablet 05/16/17 Pantoprazole [Protonix Tab*] 40 mg PO DAILY #30 tab 05/17/17 Insulin 70/30 NPH/Reg Human [Novolin 70/30*] 80 unit SQ BIDAC 12/30/18 Metformin HCl 1,000 mg PO BIDWM 12/30/18 Isosorbide Mononitrate [Isosorbide Mononitrate ER] 30 mg PO DAILY 12/31/18 Fluconazole 200 mg PO DAILY #10 tablet 01/02/19 clindamycin HCL [Clindamycin HCl] 300 mg PO Q6H #28 capsule 01/02/19 - Past Medical/Surgical History Diabetic: Yes -: Coronary artery disease -: Type 1 diabetes -: liver cyst -: neuropathy -: 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 -: Peripheral arterial disease -: Hypertension -: cva -: chf -: recurrent yeast infection -: triple bypass (heart) 2012 -: 2 C-Sections -: double bypass 2015 -: 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 -: Below knee amputation 2014 -: Above knee amputation 2014 -: Eye surgery for detached retina 2015 - Family History Father Medical History: Heart disease, Hypertension, Diabetes Notes: Pt's father of an MA Mother Medical History: Other (see notes) Notes: hyperlipidemia Brother Medical History: Diabetes Notes: Brother recently diagnosed in 2016 Sister Medical History: Hypertension - Social History Smoking Status: Former smoker Alcohol use: No CD- Drugs: No Caffeine use: Yes Review of Systems 10-point ROS is otherwise unremarkable Physical Examination - Vital Signs Temperature: 98.9 F Blood Pressure: 120/72 Pulse: 92 Respirations: 20 Pulse Ox (%): 99 - Physical Exam General: Alert, In no apparent distress, Oriented x3 HEENT: Atraumatic, PERRLA, Mucous membr. moist/pink, EOMI, Sclerae nonicteric Neck: Supple, 2+ carotid pulse no bruit, No LAD, Without JVD or thyroid abnormality Respiratory: Clear to auscultation bilaterally, Normal air movement Cardiovascular: Regular rate/rhythm, Normal S1 S2, No murmurs Gastrointestinal: Normal bowel sounds, Soft and benign, Non-distended, No tenderness Musculoskeletal: No clubbing, No swelling, No tenderness, Other (Bilateral above knee amputation) Integumentary: No rashes, Other Neurological: Normal speech, Normal strength at 5/5 x4 extr, Normal tone, Sensation intact, Cranial nerves 3-12 intact, Normal affect, Abnormal gait Lymphatics: No axilla or inguinal lymphadenopathy - Studies Laboratory Data (last 24 hrs) 08/12/19 02:35: PT 11.4, INR 0.96 08/12/19 02:35: WBC 12.6 H, Hgb 13.6, Hct 40.7, Plt Count 301 08/12/19 02:35: Sodium 136, Potassium 3.6, BUN 18, Creatinine 1.22, Glucose 354 H, Magnesium 1.5 L, Total Bilirubin 0.2, AST 11 L, ALT 19, Alkaline Phosphatase 99 Assessment & Plan - Problems (Diagnosis) (1) Chest pain, rule out acute myocardial infarction Onset Date: 05/16/17 Current Visit: No Status: Acute (2) Diabetes mellitus Current Visit: No Status: Acute Qualifiers: Diabetes mellitus type: type 2 Diabetes mellitus terminal worker insulin use: with terminal worker use Diabetes mellitus complication status: with skin complications Diabetes mellitus complication detail: with other skin ulcer Qualified Code(s): E11.622 - Type 2 diabetes mellitus with other skin ulcer; Z79.4 - jail (current) use of insulin (3) History of peripheral arterial disease Current Visit: No Status: Acute (4) Hx of CABG Current Visit: No Status: Chronic (5) Obesity Current Visit: No Status: Chronic Qualifiers: Obesity type: due to excess calories Obesity classification: adult class 1 (BMI 30 - 34.9) Serious obesity comorbidity presence: without serious comorbidity (6) S/P AKA (above knee amputation) unilateral Current Visit: No Status: Chronic - Plan 1. Serial troponins and EKG 2. Cardiology consultation 3. Echocardiogram and coronary artery catheterization may need to be scheduled. 4. Anti-platelet therapy, anticoagulation, beta-anuj, statin, and O2 as needed 5. IV morphine for pain 6. Nitro p.r.n. 7. Strict blood pressure control and monitor blood sugars closely 8. GI and DVT prophylaxis Discharge Plan: Home Plan to discharge in: Greater than 2 days - Advance Directives Does patient have a Living Will: No Does patient have a Durable POA for Healthcare: No - Code Status/Comfort Care Code Status Assessed: Yes Code Status: Full Code Critical Care: No Time Spent Managing PTS Care (In Minutes): 45
--- NOTE | 2019-08-12 08:40 | RAD REPORT ---
EXAM DESCRIPTION: RAD - Chest Single View - 08/12/2019 7:19 am CLINICAL HISTORY: CHEST PAIN Chest pain. COMPARISON: Chest Single View dated 06/08/2018; Chest Single View dated 05/15/2017; CHEST SINGLE VIEW dated 12/19/2012; CHEST SINGLE VIEW dated 11/21/2012 FINDINGS: Portable technique limits examination quality. The lungs are grossly clear. The heart is moderately enlarged. Sternotomy wires present. IMPRESSION: No acute intrathoracic process suspected.
[2019-08-12] MEDS ORDERED: ENOXAPARIN 40 MG/0.4 ML SQ SCH (09:00)
[2019-08-12] MEDS ORDERED: CLOPIDOGREL 75 MG TABLET PO SCH (09:00)
[2019-08-12] MEDS ORDERED: ASPIRIN 325 MG TAB PO SCH (09:00)
[2019-08-12] MEDS ORDERED: ENOXAPARIN 40 MG/0.4 ML SQ ONE (09:13)
[2019-08-12] MEDS ORDERED: ASPIRIN 325 MG TAB ONE (09:13)
[2019-08-12] MEDS ORDERED: CLOPIDOGREL 75 MG TABLET ONE (09:13)
[2019-08-12 14:28] VITALS: O2SAT 97
--- NOTE | 2019-08-12 14:44 | ECHO ---
HEIGHT: 5 ft 4 in WEIGHT: 177 lb 0 oz DATE OF STUDY: 08/12/[address]: Cory Hernandez MD 2-DIMENSIONAL: YES M.MODE: YES DOPPLER: YES COLOR FLOW: YES TDS: NO PORTABLE: NO DEFINITY: NO BUBBLE STUDY: NO DIAGNOSIS: CHEST PAIN CARDIAC HISTORY: CATHERIZATION: YES SURGERY: YES PROSTHETIC VALVE: NO PACEMAKER: NO MEASUREMENTS (cm) DIASTOLIC (NORMALS) SYSTOLIC (NORMALS) IVSd 1.1 (0.6-1.2) LA Diam 3.1 (1.9-4.0) LVEF 43% LVIDd 4.2 (3.5-5.7) LVIDs 3.3 (2.0-3.5) %FS 21% LVPWd 1.2 (0.6-1.2) Ao Diam 2.5 (2.0-3.7) 2 DIMENSIONAL ASSESSMENT: RIGHT ATRIUM: NORMAL LEFT ATRIUM: NORMAL RIGHT VENTRICLE: NORMAL LEFT VENTRICLE: NORMAL TRICUSPID VALVE: NORMAL MITRAL VALVE: NORMAL PULMONIC VALVE: NORMAL AORTIC VALVE: NORMAL PERICARDIAL EFFUSION: NONE AORTIC ROOT: NORMAL LEFT VENTRICULAR WALL MOTION: PARADOXICAL SEPTAL MOTION. MILD GLOBAL HYPOKINESIS. DOPPLER/COLOR FLOW: NORMAL. COMMENTS: MILDLY DEPRESSED LEFT VENTRICULAR EJECTION FRACTION. PARADOXICAL SEPTAL MOTION SEEN POST CORONARY ARTERY BYPASS GRAFT. TECHNOLOGIST: DARIN ESPOSITO
--- NOTE | 2019-08-12 16:22 | CON ---
Chief Complaint: Chest pain. History Of Present Illness: Mrs. Shah is 49. At her young age, she has had extensive experience with coronary heart disease, having undergone several interventional procedures as well as 2 separate bypass surgeries. After her first bypass surgery, all of her bypasses had occluded. Her second byp ass surgery was in about 2013. Since then, she has not had another intervention. Dr. Jenkins sees her i n [facility] in [place] and has her scheduled for a cardiac cath this coming Monday at [facility] in [place]. The patient came to our emergency room with chest pain. No shortness of breath. She has had an EKG that shows an old anterior infarct. No injury or ischemia. An EKG that is unchanged from older EKG s. Also her enzymes remain normal. The chest pain she has sounds like it could be angina, but she h as had 100s of episodes of chest pain over the last year and most of them have been brief. She is lundberg ving them more frequently, but they all seem to go away. I visited with Ms. Shah in May 2018, some 15 months ago or so, and at that time recommended doing a cardiac cath. She wanted to do it wi th Dr. Jenkins as to this point it has not been done, but it is scheduled 4 days from now at [facility] in [facility]. Allergies: SHE IS ALLERGIC TO TRAMADOL, ADHESIVE TAPE, AND KETORALAC. Outpatient Medications: Ranexa 1000 b.i.d., metoprolol aspirin, atorvastatin, clopidogrel, duloxetin e, furosemide, gabapentin, levetiracetam, pantoprazole, insulin, metformin, isosorbide mononitrate, c lindamycin, and fluconazole. Past Medical History: The patient has underlying diabetes, hypertension, dyslipidemia, obesity. Social History: She is not a cigarette smoker. Physical Examination: Vital Signs: 5 feet 4 inches, 177 pounds. HEENT: Normal. General: She does not appear to be in any distress. Lungs: Clear. Heart: Within normal limits. Extremities: Reveal diminished distal pulses. Trace edema. No cyanosis, clubbing. Laboratory Data: Her troponins are all less than 0.02. Blood sugar is 354, 146. Creatinine 1.22, G FR 47. Impression: Ms. Shah needs a cardiac cath. It would be not ideal to do a cardiac cath here. I t hink the likelihood of finding extremely complicated disease needing things like Impella pumps and ot her support devices, surgeons on standby is very high, so I am going to recommend strongly that she b e returned to the care of Dr. Jenkins whether he wants to let her be discharged and show up Monday as an outpatient or be transferred, we will discuss that with him and see which way he prefers. BAILEE/KANDIS Voice ID: [id number] Report ID: [id number]
--- NOTE | 2019-08-12 16:36 | P.PN ---
Subjective Date of Service: 08/12/19 Chief Complaint: Chest pain rule out acute coronary syndrome Subjective: Improving, Doing well Physical Examination - Vital Signs Temperature: 97.9 F Blood Pressure: 109/59 Pulse: 86 Respirations: 18 Pulse Ox (%): 95 - Physical Exam General: Alert, In no apparent distress, Cooperative HEENT: Atraumatic Neck: Supple Respiratory: Clear to auscultation bilaterally, Normal air movement Cardiovascular: Normal pulses, Regular rate/rhythm Gastrointestinal: Normal bowel sounds, Soft and benign, Non-distended Neurological: Normal speech, Normal strength at 5/5 x4 extr, Other (Bilateral amputations to the lower extremity) - Studies Laboratory Data (last 24 hrs) 08/12/19 02:35: PT 11.4, INR 0.96 08/12/19 02:35: WBC 12.6 H, Hgb 13.6, Hct 40.7, Plt Count 301 08/12/19 02:35: Sodium 136, Potassium 3.6, BUN 18, Creatinine 1.22, Glucose 354 H, Magnesium 1.5 L, Total Bilirubin 0.2, AST 11 L, ALT 19, Alkaline Phosphatase 99 Assessment & Plan Discharge Plan: Transfer Plan to discharge in: 24 Hours Physician Review Additional Text: Impression: Chest pain likely unstable angina with a recent abnormal cardiac stress tests complicated with history of CAD with prior CABG times 2() Hypertension Hyperlipidemia Diabetes mellitus type 2 insulin-dependent Lower extremity bilateral amputations Peripheral vascular disease History of CVA Chronic renal disease stage III Plan: Chest pain likely unstable angina with a recent abnormal cardiac stress tests complicated with history of CAD with prior CABG times 2(): Case discussed at length with cardiology. Cardiology recommends cardiac catheterization. Cardiology recommends the patient be transferred to high- level facility as the patient will likely have extremely complicated CAD requiring support devices like Impella pumps. This is in light of her prior CABG in 2012 and 2014. 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 Jenkins. He agrees with transfer to [facility] for heart catheterization. I will initiate transfer process for heart catheterization. Patient remains on aspirin, Plavix, metoprolol and Lipitor. Continue Ranexa. Anticipate approval for transfer within the next 24 hr. Hypertension: Continue medication-metoprolol Hyperlipidemia: Continue medication-Lipitor Diabetes mellitus type 2 insulin-dependent: Will monitor Accu-Cheks. Will provide sliding scale. Lower extremity bilateral amputations: Fall precautions in place. Peripheral vascular disease: Continue Plavix. History of CVA: Continue Plavix. Will need to verify and obtain home medications so that they can be restarted. Chronic renal disease stage III: Overall stable. Will monitor closely. Time Spent Managing Pts Care (In Minutes): 55
[2019-08-12] MEDS ORDERED: GLUCAGON 1 MG/VIAL IM PRN (16:37)
[2019-08-12] MEDS ORDERED: D50W 25 GM/50 ML SYRINGE/VIAL IV PRN (16:37)
[2019-08-12 20:21] VITALS: BP 136/81; TEMP 98.5
[2019-08-12] MEDS ORDERED: ATORVASTATIN 40 MG TAB PO SCH (21:00)
[2019-08-12] MEDS ORDERED: INSULIN -REGULAR HUMAN 50 UNIT/0.5 ML ML SQ SCH (21:00)
--- NOTE | 2019-08-13 17:11 | P.DS ---
Admission Date: 08/12/19 Discharge Date: 08/13/19 Disposition: TRANSFER TO [facility] Discharge Condition: FAIR Reason for Admission: Chest pain rule out acute coronary syndrome Consultations: Cardiology-Dr. Montemayor Procedures: Medical problem list: Chest pain likely unstable angina with a recent abnormal cardiac stress tests complicated with history of CAD with prior CABG times 2() Hypertension Hyperlipidemia Diabetes mellitus type 2 insulin-dependent Lower extremity bilateral amputations Peripheral vascular disease History of CVA Chronic renal disease stage III Brief History of Present Illness: 49-year-old female with multiple medical problems presented to emergency room with chest pain. Patient was admitted for further evaluation. Hospital Course: Patient presented with chest pain. This was likely unstable angina. Patient had recent abnormal cardiac stress test by her security lead at [facility] (formerly [facility]3]. Patient also with significant history of CAD and prior CABG x2. Patient was seen and evaluated by Cardiology. Cardiology recommended to discuss with her security lead at [facility]. Both recommended heart catheterization. Due to her complex history cardiology recommended the patient be transferred to high -level Center at [facility] to further address. Case was discussed with her security lead at [facility] (formerly [facility]3]. He agreed. Arrangement for transfer to [facility] for heart catheterization was arrange. Patient was transferred to [facility] for further evaluation and treatment. Patient with underlying hypertension, hyperlipidemia, diabetes mellitus type 2 insulin dependent, lower extremity bilateral amputations, PVD, history of CVA, and chronic renal disease stage III. Patient will continue current medications including aspirin, Plavix, metoprolol and Lipitor. Ranexa has been added. Further adjustment in medication can be done at [facility] cardiology. Vital Signs/Physical Exam: Temp Pulse Resp BP Pulse Ox 98.5 F 91 H 17 136/81 97 08/12/19 20:00 08/12/19 20:00 08/12/19 20:00 08/12/19 20:00 08/12/19 20:00 General: Alert HEENT: Atraumatic Neck: Supple Respiratory: Clear to auscultation bilaterally, Normal air movement Cardiovascular: Normal pulses, Regular rate/rhythm Gastrointestinal: Normal bowel sounds, Soft and benign, Non-distended Laboratory Data at Discharge: WBC 12.6 K/uL (4.3-10.9) H 08/12/19 02:35 Hgb 13.6 g/dL (12.0-15.0) 08/12/19 02:35 Hct 40.7 % (36.0-45.0) 08/12/19 02:35 Plt Count 301 K/uL (152-406) 08/12/19 02:35 PT 11.4 SECONDS (9.5-12.5) 08/12/19 02:35 INR 0.96 08/12/19 02:35 Sodium 136 mmol/L (136-145) 08/12/19 02:35 Potassium 3.6 mmol/L (3.5-5.1) 08/12/19 02:35 BUN 18 mg/dL (7-18) 08/12/19 02:35 Creatinine 1.22 mg/dL (0.55-1.3) 08/12/19 02:35 Glucose 354 mg/dL (74-106) H 08/12/19 02:35 Magnesium 1.5 mg/dL (1.8-2.4) L 08/12/19 02:35 Total Bilirubin 0.2 mg/dL (0.2-1.0) 08/12/19 02:35 AST 11 U/L (15-37) L 08/12/19 02:35 ALT 19 U/L (12-78) 08/12/19 02:35 Alkaline Phosphatase 99 U/L (45-117) 08/12/19 02:35 Troponin I < 0.02 ng/mL (0.0-0.045) 08/12/19 10:05 Triglycerides 232 mg/dL (<150) H 08/12/19 06:30 Cholesterol 167 mg/dL (<200) 08/12/19 06:30 HDL Cholesterol 39 mg/dL (40-60) L 08/12/19 06:30 Cholesterol/HDL Ratio 4.28 08/12/19 06:30 Home Medications: Ranolazine [Ranexa] 500 mg PO BID 05/15/17 Aspirin 81 mg PO DAILY #30 tab.chew 05/16/17 Atorvastatin Calcium [Lipitor] 40 mg PO BEDTIME #30 tab 05/16/17 Clopidogrel Bisulfate [Plavix] 75 mg PO DAILY #30 tablet 05/16/17 Duloxetine HCl 30 mg PO DAILY #30 capsule.dr 05/16/17 Gabapentin 800 mg PO TID #120 tablet 05/16/17 levETIRAcetam [Levetiracetam] 500 mg PO BID #60 tablet 05/16/17 Pantoprazole [Protonix Tab*] 40 mg PO DAILY #30 tab 05/17/17 Insulin 70/30 NPH/Reg Human [Novolin 70/30*] 80 unit SQ BIDAC 12/30/18 Metformin HCl 1,000 mg PO BIDWM 12/30/18 Isosorbide Mononitrate [Isosorbide Mononitrate ER] 30 mg PO DAILY 12/31/18 Fluconazole 150 mg PO DAILY 08/12/19 Potassium Chloride 10 meq PO DAILY 08/12/19 Patient Discharge Instructions: Patient be transferred to [facility] for further evaluation and heart catheterization. Diet: AHA Activity: Fall precautions Followup: Lily Jenkins MD [OUTSIDE PHYSICIAN] - Time spent managing pt's care (in minutes): 55
== END 2019-08-12 21:05 | disposition short-term general hospital (02) ==
LOC: ER 01:58 → ERHOLD 03:38 → 2ND 13:32
PROVIDERS: ADMIT Hospitalist; ATTEND Family Medicine
DX: R07.9 Chest pain, unspecified (principal); I25.10 Atherosclerotic heart disease of native coronary artery without angina pectoris; E78.5 Hyperlipidemia, unspecified; E11.51 Type 2 diabetes mellitus with diabetic peripheral angiopathy without gangrene; E11.22 Type 2 diabetes mellitus with diabetic chronic kidney disease; I13.0 Hypertensive heart and chronic kidney disease with heart failure and stage 1 through stage 4 chronic kidney disease, or unspecified chronic kidney disease; N18.3 Chronic kidney disease, stage 3 (moderate); I50.9 Heart failure, unspecified; R00.0 Tachycardia, unspecified; R94.31 Abnormal electrocardiogram [ECG] [EKG]; E11.40 Type 2 diabetes mellitus with diabetic neuropathy, unspecified; I25.2 Old myocardial infarction; Z79.4 Long term (current) use of insulin; Z79.02 Long term (current) use of antithrombotics/antiplatelets; Z79.82 Long term (current) use of aspirin; Z79.899 Other long term (current) drug therapy; Z95.1 Presence of aortocoronary bypass graft; Z86.73 Personal history of transient ischemic attack (TIA), and cerebral infarction without residual deficits; Z89.612 Acquired absence of left leg above knee; Z89.611 Acquired absence of right leg above knee; E66.9 Obesity, unspecified; Z87.891 Personal history of nicotine dependence
CPT/HCPCS: 93005 ×2; 93306; 85025; 80048; 36415; 83735; 85610; 80061; 82947 ×2; 80076; 84484 ×3; 83880; 71045; 96375; 96372; 96374; 99285; J1650 ×2; J2405; G0378 ×2

== ENCOUNTER 2019-12-24 21:41 | Observation (INO) | payer OTHER ==
--- OUTSIDE RECORDS SUMMARY | 2019-12-24 21:44 | XMS REPORT | Continuity of Care Document ---
:1970 Author Organization [facility] t Address [address] [place] [address] Care Team Providers Name Role Phone Doctor Unassigned, Name Attending Clinician Unavailable Mark BROWN, H Attending Clinician Lucas BROWN A Attending Clinician Desi FRAIRE Attending Clinician Problems Condition Condition Condition Status Onset Resolution Last Treating Co mments Source Name Details Category Date Date Treatment Clinician Date History of History of Problem Active [facility] CVA CVA [facility] - (cerebrova (cerebrova Me moria scular scular l accident) accident) Outp ati ent Clinics Migraine Mig[facility] without [facility] aura and aura and Memori a without without l status status Outpati migrainosu migrainosu en t s, not s, not Clinics intractabl intractabl e e Type 2 Type [address] [facility] diabetes diabetes [facility] - mellitus mellitus Memori a with with l hyperglyce hyperglyce Ou tpati [facility] ent Clinics Type 2 Type [address] [facility] diabetes diabetes [facility] - mellitus mellitus Memori a with other with other l specified specified Outp ati complicati complicati en t on on Clinics Hx of CABG Hx of CABG Problem Active [facility] Chronic Chronic Problem Active [facility] pain pain [facility] - disorder disorder [facility] [employer] Problem Active [facility] current current [facility] - use of use of Memoria insulin insulin l [facility] Neuropathy Neuropathy Problem Active [facility] - [facility] l [facility] Clinics Depression Depression Problem Active [facility] with with [facility] - anxiety anxiety Memoria l [facility] ent Clinics HTN HTN Problem Active [facility] (hypertens (hypertens Charley kes - ion), ion), Memoria benign benign l [facility] ent Clinics Seizures Seizures Problem [facility] Clinics Coronary Coronary Problem Active [facility] artery artery [facility] - disease disease Memoria involving involving l coronary coronary Outpat i bypass bypass ent graft of graft of Clinic s augustine augustine heart with heart with angina angina pectoris pectoris Dependent Dependent Problem Active [facility] on on [facility] - wheelchair wheelchair Me moria l [facility] ent Clinics History of History of Problem Active [facility] right right [facility] - above knee above knee Me moria amputation amputation l [facility] Allergies, Adverse Reactions, Alerts Allergy Allergy Status Severity Reaction(s) Onset Inactive Treating Comm ents Source Name Type Date Date Clinician Toradol Adverse Active Info Not [facility] Reaction Available [facility] - Memoria l [facility] ent [facility] tramadol Adverse Active Info Not [facility] Reaction Available [facility] - Memoria [facility] ent [facility] Medications Ordered Filled Start Stop Current Ordering Indication Dosage Frequency Signature Comments Components Source Medication Medication Date Date Medication? Clinician (SIG) Name Name Atorarunatagoran Atorarunatati Yes Dada [address] [facility] n Calcium n Calcium Horan Luke s - Memoria l [facility] ent Clinics Lexapro Lexapro Yes Dada [address] [facility] Horan [facility] - [facility] l [facility] Clinics Metoprolol Metoprolol Yes Dada [address] [facility] [address] Tartrate Tartrate Horan with food L ukes - Memoria l [facility] ent Clinics Ranexa Ranexa Yes Dada 1 tablet [facility]ics Insulin Insulin Yes Dada [address] [facility] [address] Aspart Prot Aspart Prot Horan BID [facility] - & Aspart & Aspart Memoria l [facility] ent Clinics Aspirin Aspirin Yes Dada [address] [facility] Gabapentin Gabapentin Yes Dada [address] [facility]ics Furosemide Furosemide Yes Dada [address] [facility]ics Duloxetine Duloxetine Yes Dada [address] [facility] HCl HCl Horan [facility] Outpat[facility] ent Clinics Xanax Xanax Yes Dada [address] [facility] Clopidogrel Clopidogrel Yes Dada [address] [facility] Bisulfate Bisulfate Horan [facility] Outpat[facility] ent Clinics Metformin Metformin Yes Dada [address] [facility] HCl HCl Horan with meals [facility] Out[facility] ent Clinics Pantoprazol Pantoprazol Yes Dada [address] [facility] e Sodium e Sodium Horan [facility] Out[facility] ent Clinics Klor-Con Klor-Con Yes Dada [address] M10 M10 Horan with food [facility] Clin[facility] Duloxetine Duloxetine Yes Dada [address] [facility] HCl HCl Horan [facility] Levetiracet Levetiracet Yes Dada [address] [facility] am am Horan [facility] Gardiner Gardiner Yes Dada [address] [facility] Horan as needed [facility] Out[facility] Clinics Lexapro Lexapro Yes Dada [address] [facility] Atorvastati Atorvastati Yes Dada [address] [facility] n Calcium n Calcium Horan [facility] Outpati ent Clinics Clopidogrel Clopidogrel Yes Dada [address] [facility] [address] Bisulfate Bisulfate Horan [facility] Outpati ent Clinics Furosemide Furosemide Yes Dada [address] [facility] [address] [facility]an [facility] Procedures This patient has no known procedures. Encounters Start End Encounter Admission Attending Care Care Encounter Source Date/Time Date/Time Type Type Clinicians Facility Department ID 2019-12-10 2019-12-10 Orders Doctor TOM [id number] 00:00:00 00:00:00 Only Unassigned, ARTURO [id number] [place] [facility] [id number] 2019-12-10 2019-12-10 Telephone VICKI Flores [id number] 00:00:00 00:00:00 Anatoly Hawkins [id number] [place] [id number] Professio [phone] [facility] 220 Building 2019-12-05 2019-12-05 [facility] [id number] 00:00:00 00:00:00 Anatoly Rodriguez Shruthi [id number] [place] [id number] Professio [phone] [facility] 220 [facility] 2019-11-03 2019-11-03 [facility] [id number] 00:00:00 00:00:00 [employer] [id number] [place] [id number] Professio [phone] [facility] 044 Office Building One 2019-11-01 2019-11-01 [facility] [id number] 11:35:00 23:59:00 Encounter Muna Hawkins [id number] [place] [id number] [place] [phone] [id number] 2019-11-01 2019-11-01 Orders Doctor VAISHALI [id number] 00:00:00 00:00:00 Only Unassigned, ARTURO [id number] [place] [facility] [id number] 2019-10-11 2019-10-11 Office [facility] [id number] 14:59:15 16:12:30 Visit Muna Hawkins [id number] [place] [id number] Professio [phone] [facility] 134 [facility] 2019-10-11 2019-10-11 Orders Doctor VAISHALI [id number] 00:00:00 00:00:00 Only Unassigned, ARTURO [id number] [place] [facility] [id number] 2019-09-20 2019-09-20 Telemedici [facility] [id number] 09:52:35 10:22:35 ne Visit Anatolyjessica Hawkins [id number] [place] [id number] [facility] [phone] [address] 2018-06-27 2018-06-27 [facility] [id number] [address] 11:57:00 11:57:00 t [place] Rijuven [employer] s - Drive [facility] Medicine Outpati ent Clinics 2018-06-15 2018-06-15 [facility] [id number] 16:24:00 16:24:00 t [place] [employer] s - Riju[address] [facility] Outpati ent Clinics 2018-06-13 2018-06-13 [facility] [id number] 13:30:00 13:30:00 t [place] [employer] s - Drive [facility] Outpat[facility] ent Clinics 2017-12-12 2017-12-12 [facility] [id number] 13:22:00 13:22:00 t [place] [employer] s - R[address] [facility] Medicine Outpati ent Clinics 2017-11-20 2017-11-20 [facility] [id number] 10:30:00 10:30:00 t [place] [employer] s - Drive [facility] Medicine Outpati ent Clinics 2017-11-02 2017-11-02 [facility] [id number] 15:15:00 15:15:00 t GI Track s - Drive [facility] Medicine Outpati ent Clinics Results This patient has no known results.
--- OUTSIDE RECORDS SUMMARY | 2019-12-24 21:45 | XMS REPORT | Summary of Care ---
:1970 Author Organization [facility] - Health Address [address] [place] [address] Care Team Providers Name Role Phone Fabby Meléndez Unavailable Bennie Zavala MD Primary Care Provider Eligio Garsia MD Unavailable Reason for Visit Reason Comments Refill Request Encounter Details Date Type Department Care Team Description 09/30/2019 Refill [facility] Endocrinology- Anatoly Novoa MD Refill Request [address] Professional Office Ziy[place] [address] [place] [address] [place] [address] [address] [place] [address] Allergies Active Allergy Reactions Severity Noted Date Comments Ketorolac Tromethamine Hives 12/15/2016 Tramadol Hives 12/15/2016 documented as of this encounter (statuses as of 10/01/2019) Medications Medication Sig Dispensed Refills Start End Date Status Date Insulin Use as 180 Syringe 3 Active Syringe-Needle U-100 directed 8 (INSULIN SYRINGE) 1 mL 30 gauge x 10/11 SyrgIndications: Diabetes 1.5, managed as type 1 metFORMIN 500 mg Take 2 tablets 360 tablet 3 Active tablet by mouth 2 9 (two) times daily with meals. You can do two pills in the morning and one in the evening. Nitrofurantoin&Nit. Take 1 capsule 30 capsule 2 Active Macrocryst (MACROBID) by mouth 9 100 mg daily. capsuleIndications: Recurrent UTI levETIRAcetam 500 mg 2 Active tablet 9 phenazopyridine 200 Take 1 tablet 9 tablet 0 Active mg tabletIndications: by mouth 3 9 Recurrent UTI (three) times daily. DULoxetine 30 mg Take 1 capsule 90 capsule 1 Active capsuleIndications: by mouth 9 Anxiety and daily. depression, Peripheral neuropathic pain pantoprazole 40 mg EC Take 1 tablet 90 tablet 1 Active tabletIndications: by mouth 9 Gastroesophageal daily. reflux disease, esophagitis presence not specified potassium chloride 10 Take 1 tablet 90 tablet 1 Active mEq CR by mouth 9 tabletIndications: daily. Hypokalemia albuterol 90 Inhale 2 Puffs 1 Inhaler 1 Ac tive mcg/actuation every 6 (six) 9 inhalerIndications: hours as Persistent cough, needed for Tobacco use, Wheezing Wheezing or Shortness of Breath. nitroglycerin 0.4 mg 1 tab SL q5min 25 tablet 0 Active sublingual up to 3 doses 9 tabletIndications: PRN chest H/O right coronary pain, then artery stent activate 911. placement FUROSEMIDE 20 mg TAKE 1 TABLET 90 tablet 1 Active tabletIndications: BY MOUTH ONCE 9 Congestive heart DAILY failure, unspecified HF chronicity, unspecified heart failure type isosorbide Take 1 tablet 90 tablet 1 Activ e mononitrate 30 mg 24 by mouth 0 hr tabletIndications: daily. H/O right coronary artery stent placement aspirin 81 mg Take 1 tablet 90 tablet 3 Ac tive chewable tablet by mouth daily. clopidogreL (PLAVIX) Take 1 tablet 30 tablet 11 Active 75 mg by mouth 0 tabletIndications: daily. H/O right coronary artery stent placement insulin NPH and Inject 84 6 Vial 3 Acti ve regular human 70-30 units AM, 84 0 (NOVOLIN 70/30 U-100 units PM INSULIN) 100 unit/mL (70-30) injectionIndications: Type 2 diabetes mellitus with diabetic peripheral angiopathy without gangrene, with long-term current use of insulin atorvastatin 80 mg Take 1 tablet 30 tablet 11 Active tabletIndications: by mouth at 0 Coronary artery bedtime. disease involving [place] coronary artery of [place] heart without angina pectoris metoprolol succinate Take 1 tablet 30 tablet 11 Active XL 100 mg 24 hr by mouth 0 tabletIndications: daily. Coronary artery disease involving [place] coronary artery of [place] heart without angina pectoris azithromycin 250 mg Take 1 tablet 2 tablet 0 Active tabletIndications: by mouth 0 Coronary artery daily. Take disease involving 250 mg tablet [place] coronary once daily artery of [place] heart without angina pectoris GABAPENTIN 800 mg TAKE 1 TABLET 90 tablet 0 Active tabletIndications: BY MOUTH THREE 0 Neuropathy TIMES DAILY gabapentin 800 mg Take 1 tablet 270 tablet 2 0 Discontinued tabletIndications: by mouth 3 9 20 Neuropathy (three) times daily. documented as of this encounter (statuses as of 10/01/2019) Active Problems Problem Noted Date Obesity (BMI 30-39.9) 08/12/2019 Chest pain 08/12/2019 Coronary artery disease involving [place] coronary radha ry of [place] heart 08/05/2019 without angina pectoris PAD (peripheral artery disease) 08/05/2019 Chronic heart failure with preserved ejection fraction 08/05/2019 GARY (stress urinary incontinence, female) 02/02/2018 Overview: Added automatically from request for tate stone [id number] GERD (gastroesophageal reflux disease) DM (diabetes mellitus) Depression CVA (cerebral vascular accident) CHF (congestive heart failure) Anxiety Angina pectoris H/O right coronary artery stent placement High cholesterol HTN (hypertension) Hx of CABG Migraines Seizures Unilateral AKA, right documented as of this encounter (statuses as of 10/01/2019) Social History Tobacco Use Types Packs/Day Years [...] Treatment Date Type Specialty Care Team Description 10/07/2019 Office Visit Obstetrics & Gynecology Muna Weeks PA-C [address] [place] [address] [phone] 11/06/2019 Office Visit Cardiology Lily Jenkins M D [address] [place], [place] [address] 15 [phone] Health Maintenance Due Date Last Done Comments EYE EXAM 1982 Breast Cancer Screening 11/06/2018 11/06/2017 (MAMMOGRAM) URINE MICROALBUMIN 09/01/2019 08/31/2018, 05/19/2017 HgA1C 02/13/2020 08/13/2019, 05/10/2019, 08/31/2018, Additional history exists DTaP,Tdap,and Td Vaccines 03/26/2020 Postpo sharon from (1 - Tdap) 1983 (Refu sed) INFLUENZA VACCINE (Season 03/26/2020 Postpo sharon from Ended) 01/28/2020 (Refu sed) LDL-C 03/26/2020 03/26/2019 PNEUMOCOCCAL 0-64 YEARS 03/26/2020 Postpone d from COMBINED SERIES (1 of - 1977 (Refused) PPSV23) CREATININE (SERUM) 08/15/2020 08/16/2019, 08/15/2019, 08/14/2019, Additional history exists FOOT EXAM 09/19/2020 09/20/2019, 09/20/2019, 05/10/2019, Additional history exists PAP SMEAR 09/25/2020 09/25/2017 documented as of this encounter Results Not on filedocumented in this encounter Visit Diagnoses Diagnosis Neuropathy Mononeuritis of unspecified site documented in this encounter Insurance Payer Benefit Plan / Subscriber ID Effective Dates Phone Addre ss Type Group MEDICARE MEDICARE PART xxxxxxxxxxx 2017-Justin [phone] Medicare A & B [place] 2 [id number] [place] [id number] documented as of this encounter
--- OUTSIDE RECORDS SUMMARY | 2019-12-24 21:45 | XMS REPORT | Summary of Care ---
:1970 Author Organization [facility] - [facility] Address [address] [place] [address] Care Team Providers Name Role Phone Fabby Meléndez Unavailable Bennie Zavala MD Primary Care Provider Eligio Garsia MD Unavailable Reason for Referral Radiology Services (Routine) Status Reason Specialty Diagnoses / Referred By Referred To Procedures Contact Contact New Request Diagnostic Diagnoses Encounter for screening mammogram for malignant neoplasm of breast Screening breast examination Desi, Courtney Procedures BI SCREENING MAMMOGRAM BILATERAL JUNO Toro [address] [facility] [address] [place] [address] Reason for Visit Reason Comments Well Woman Exam Encounter Details Date Type Department Care Team Description 10/11/2019 Office Visit [facility] Women's Muna Weeks Wome n's annual routine gynecological examination (Primary Dx); [facility] [place] JUNO Screening breast examination; 146 [facility], [address] [place] [address] Tobac co use disorder; [address] Encounter for screening mammogram for ma lignant neoplasm of breast [facility] [address] [id number] [place], [place] [phone] Allergies Active Allergy Reactions Severity Noted Date Comments Ketorolac Tromethamine Hives 12/15/2016 Tramadol Hives 12/15/2016 documented as of this encounter (statuses as of 10/11/2019) Medications Medication Sig Dispensed Refills Start Date End Date Status Insulin Syringe-Needle Use as directed 180 Syringe 3 8 Active U-100 (INSULIN SYRINGE) 1 mL 30 gauge x 16 SyrgIndications: Diabetes 1.5, managed as type 1 metFORMIN 500 mg tablet Take 2 tablets [...] mouth 3 Recurrent UTI (three) times daily. DULoxetine 30 [...] Inhale 2 Puffs 1 Inhaler 1 03/26/2019 A ctive mcg/actuation every 6 (six) inhalerIndications: hours as [...] failure type isosorbide mononitrate Take 1 tablet 90 tablet 1 08/05/2019 Active 30 mg 24 hr by mouth daily. tabletIndications: H/O right coronary artery stent placement aspirin 81 mg chewable Take 1 tablet 90 tablet 3 Active tablet by mouth daily. clopidogreL (PLAVIX) 75 Take 1 tablet 30 tablet 11 08/16/2019 Active mg tabletIndications: by mouth daily. H/O right coronary artery stent placement insulin NPH and regular Inject 84 units 6 Vial 3 08/16/2019 Active human 70-30 (NOVOLIN AM, 84 units PM 70/30 U-100 INSULIN) 100 unit/mL (70-30) injectionIndications: Type 2 diabetes mellitus with diabetic peripheral angiopathy without gangrene, with long-term current use of insulin atorvastatin 80 mg Take 1 tablet 30 tablet 11 08/16/2019 Active tabletIndications: by mouth at Coronary artery disease bedtime. involving [place] coronary artery of [place] heart without angina pectoris metoprolol succinate XL Take 1 tablet 30 tablet 11 08/17/2019 Active 100 mg 24 hr by mouth daily. tabletIndications: Coronary artery disease involving [place] coronary artery of [place] heart without angina pectoris azithromycin 250 mg Take 1 tablet 2 tablet 0 08/17/2019 Active tabletIndications: by mouth daily. Coronary artery disease Take 250 mg involving [place] tablet once coronary artery of daily [place] heart without angina pectoris GABAPENTIN 800 mg TAKE 1 TABLET 90 tablet 0 10/01/2019 Active tabletIndications: BY MOUTH THREE Neuropathy TIMES DAILY documented as of this encounter (statuses as of 10/11/2019) Active Problems Problem Noted Date Obesity (BMI 30-39.9) 08/12/2019 Chest pain 08/12/2019 Coronary artery disease involving [place] coronary radha ry of [place] heart 08/05/2019 without angina pectoris PAD (peripheral artery disease) 08/05/2019 Chronic heart failure with preserved ejection fraction 08/05/2019 GARY (stress urinary incontinence, female) 02/02/2018 Overview: Added automatically from request for tate bertha [id number] GERD (gastroesophageal reflux disease) DM (diabetes mellitus) Depression CVA (cerebral vascular accident) CHF (congestive heart failure) Anxiety Angina pectoris H/O right coronary artery stent placement High cholesterol HTN (hypertension) Hx of CABG Migraines Seizures Unilateral AKA, right documented as of this encounter (statuses as of 10/11/2019) Social History Tobacco Use Types Packs/Day Years Used Date Current Every Day Smoker Cigarettes 1 Smokeless Tobacco: Never Used Alcohol Use Drinks/Week oz/Week Comments Yes rare Sex Assigned at Date Recorded Not on file Job Start Date Occupation Industry Not on file Not on file Not on file Travel History Travel Start Travel End No recent travel history available. COVID-19 Exposure Response Date Recorded In the last month, have you been in contact with No / Unsure 10/11/2019 2:58 PM CDT someone who was confirmed or 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 documented as of this encounter Last Filed Vital Signs Vital Sign Reading Time Taken Comments Blood Pressure 124/77 10/11/2019 3:16 PM CDT Pulse 92 10/11/2019 3:16 PM CDT Temperature 36.9 C (98.4 F) 10/11/2019 3:16 PM CDT Respiratory Rate 18 10/11/2019 3:16 PM CDT Oxygen Saturation - - Inhaled Oxygen Concentration - - Weight 80.7 kg (178 lb) 10/11/2019 3:16 PM CDT Height 162.6 cm (5' 4") 10/11/2019 3:16 PM CDT Body Mass Index 30.55 10/11/2019 3:16 PM CDT documented in this encounter Patient Instructions Patient InstructionsJill Mosley MA - 10/11/2019 3:00 PM CDT Patient Education Prevention Guidelines,Women Ages 40 to 49 Screening tests and vaccines are an important part of managing your health. A screening test is doneto find diseases in people who don't have any symptoms. The goal is to find a disease early so lifestyle changes and checkups can reduce the risk of disease. Or the goal may be to detect it early to treat it most effectively. Screening tests are not used to diagnose a disease. But they are used to seeif more testing is needed.Health counseling is important, too. Below are guidelines for these, forwomen ages 40 to 49. Talk with your healthcare provider to make sure youre up-to-date on what youneed. Screening Who needs it How often Type 2 diabetes or prediabetes All women beginning at age 45 and women without symptoms at any age who are overweight or obese and have 1 or more additional risk factors for diabetes At least every 3 years1 Type 2 diabetes or prediabetes All women diagnosed with gestational diabetes Lifelong testing every 3 years Type 2 diabetes All women with prediabetes Every year Alcohol misuse All women in this age group At routine exams Blood pressure All women in this age group Yearly checkup if your blood pressure is normal Normal blood pressure is less than 120/80 mm Hg If your blood pressure reading is higher than normal, follow the advice of your healthcare provider Breast cancer All women at average risk in this age group Screening with a mammogram can start at age 40.2 Talk with your healthcare provider to help you decide when to start screening. At age 45 startyearly mammograms.3 Cervical cancer All women in this age group, except women who have had a complete hysterectomy Pap test every 3 yearsor Pap test plushuman papilloma virus (HPV)test every 5 years Colorectal cancer Women age 45 years and older at average risk Multiple tests are available and are used at different times. Possible tests include: Flexible sigmoidoscopy every 5 years, or Colonoscopy every 10 [address], [address] colonography (virtual colonoscopy) every 5 years, or Yearly fecal occult blood test, or Yearly fecal immunochemical test every year, or Stool DNA test, every 3 years If you choose a test other than a colonoscopy and have an abnormal test result, you will need to follow-up with a colonoscopy. Screening advice varies among expert groups. Talk with your healthcare provider about which tests are best for you. Some people should be screened using a different schedule because of their personal or family healthhistory. Talk with your healthcare provider about your health history. Chlamydia Women at increased risk for infection At routine exams if you're at risk or have symptoms Depression All women in this age group At routine exams Gonorrhea Sexually active women at increased risk for infection At routine exams Hepatitis C Anyone at increased risk; 1 time for those born between 1945 and 1964 At routine exams High cholesterol or triglycerides All women ages 45 and older who are at risk for coronary artery disease; younger women, talk with your healthcare provider At least every 5 years HIV All women At routine exams. Those with risk factors for HIV should be tested at least annually. Obesity All women in this age group At routine exams Syphilis Women at increased risk for infectiontalk with your healthcare provider At routine exams Tuberculosis Women at increased risk for infectiontalk with your healthcare provider Ask your healthcare provider Vision All women in this age group Complete exam at age 40 and eye exams every 2 to 4 years. If you have a chronic disease, ask your healthcare provider how often you should have your eyes examined.4 Vaccine Who needs it How often Chickenpox (varicella) All women in this age group who have no record of this infection or vaccine 2doses; the second dose should be given at least 4 weeks after the first dose Hepatitis A Women at increased risk for infectiontalk with your healthcare provider 2 doses given6 months apart Hepatitis B Women at increased risk for infectiontalk with your healthcare provider 3 doses over 6 months; second dose should be given 1 month after the first dose; the third dose should be given atleast 2 months after the second dose and at least 4 months after the first dose Haemophilus influenzaeType B (HIB) Women at increased risk 1 to 3 doses Influenza (flu) All women in this age group Once a year Measles, mumps, rubella (MMR) All women in this age group who have no record of these infections or vaccines 1 or 2 doses Meningococcal Women at increased risk for infectiontalk with your healthcare provider 1 or more doses Pneumococcal conjugate vaccine (PCV13)and pneumococcal polysaccharidevaccine(PPSV23) Women at increased risk for infectiontalk with your healthcare provider 1 or 2 doses Tetanus/diphtheria/pertussis (Td/Tdap) booster All women in this age group A 1- time dose of Tdap instead of a Td booster after age 18, then Td every 10 years Counseling Who needs it How often BRCA gene mutation testing for breast and ovarian cancer susceptibility Women with increased risk for having gene mutation When your risk is known Breast cancer and chemoprevention Women at high risk for breast cancer When your risk is known Diet and exercise Women who are overweight or obese When diagnosed, and then at routine exams Domestic violence Women at the age in which they are able to have children At routine exams Sexually transmitted infection prevention Women at increased risk for infectiontalk with your healthcare provider At routine exams Use of tobacco and the health effects it can cause All women in this age group Every exam 1 [place] [employer] 2 [place]nec[employer] 3 [place] [employer] Society 4 [place] [employer] YourPlace last reviewed this educational content on 03/29/201719994766-3078 [employer]. [address] [place] [address]. All rights reserved. This information is not intended as a substitute for professional medical care. Always follow your healthcare professional's instructions. Patient Education Clinical Breast Exam Many health organizations recommend a yearly clinical breast exam. This exam may be done by a upper lining cementer, family healthcare provider, nurse practitioner, nurse colorist, or specially trained nurse. Yearly breast exams help tomake surethat breast conditions are found early. Your healthcare providers role A healthcare professional knows the tests and follow-up care needed if a problem is found. Your clinical exam is also a great time to ask questions about breast self-exams. You can find out if yourechecking your breasts in the best way. Or you may want to ask how , breast implants, or breast reduction surgery affect the way you should check your breasts. Diagnostic tests If a clinical exam reveals a breast change, you may have other tests to find out more. These tests may include: Mammography. A low-dose X-ray of your breast tissue. Ultrasound. An imaging test that uses sound waves to create images of your breast. Biopsy. A small amount of breast tissue is removed by needle or by a cut (incision). The tissue is then checked under a microscope. Guidelines for having clinical breast exams The [place] [employer]nec[employer] recommends that starting at age 29, you should have a clinical breast exam every 1 to 3 years. After age 40, have a clinical breast exam each year. If youre at higher risk for breast cancer, you may need exams more often. Risk factors for breast cancer may include: Being over 50 or postmenopausal Having a family history of breast cancer Having the BRCA1 or BRCA2 gene mutation or certain other gene mutations Having more menstrual periods due to starting menstruation early(before age 12) or having a late menopause (after age 55) Having no pregnancies Having a first after age 30 Being obese Having a history of radiation treatment to your chest area Exposure to DARY during your mother's Not being active Drinking too much alcohol Having dense breast tissue Taking hormone therapy after menopause Other health organizations have different recommendations. Talk with your healthcare provider about what is best for you. YourPlace last reviewed this educational content on 12/27/201619999937-3163 [employer]. [address] [place] [id number]. All rights reserved. This information is not intended as a substitute for professional medical care. Always follow your healthcare professional's instructions. Patient Education Breast Health: Breast Self-Awareness What is breast self-awareness? Breast self-awareness is knowing how your breasts normally look and feel. Your breasts change as yougo through different stages of your life. So its important to learn what is normal for your breasts. Knowing about your breasts helps you spot any changes in them right away. Tell your healthcare provider about any changes. Why is breast self-awareness important? Many experts now say that women should focus on breast self-awareness instead of doing a breast self-examination (BSE). These experts include the [place] [employer] and the [place] [employer] Obstetricians and Gynecologists. Some experts even advise not teaching women to do a BSE. Thats because research hasnt shown a clear benefit to doing BSEs. Breast self-awareness is different than a BSE. It isnt about following a certain method and schedule. Its about knowing what's normal for your breasts. That way you can spot even small changes right away. If you see any changes, tell your healthcare provider. Changes to look for Call your healthcare provider if you find any changes in your breasts that worry you. These changes may be: A lump Nipple discharge other than breastmilk, especially if it's bloody Swelling A change in size or shape Skin changes, such as redness, thickening, or dimpling of the skin Swollen lymph nodes in the armpit Nipple problems, such as pain or redness If you find a lump Call your provider if you find lumpiness in one breast. Also call if you feel something different inthe tissue or feel a definite lump. Sometimes lumpiness may be due to menstrual changes. But there may be reason for concern. Your provider may want to see you right away if you have: Nipple discharge that is bloody Skin changes on your breast, such as dimpling or puckering Its okay to be upset if you find a lump. Be sure to call your provider right away. Remember that most breast lumps are benign. This means they are not cancer. YourPlace last reviewed this educational content on 12/27/201619999413-3694 [employer]. [address] [place] [address]. All rights reserved. This information is not intended as a substitute for professional medical care. Always follow your healthcare professional's instructions. documented in this encounter Progress Notes Muna Weeks PA-C - 10/11/2019 3:00 PM CDT Chief complaint: Chief Complaint Patient presents with Well Woman Exam HPI Karen Shah is a 49 year old female presenting for well woman exam. She is particularly concerned about wwe The patient has a Body mass index is 30.55 kg/m.. She is working on eating healthier and exercising more. The patient is not concerned about her menstrual cycles. Her cycles are irregular and last about 5-7 days. Her bleeding is moderate. The patient is sexually active. She currently has 1 sexual partner(s). She is offered sexually transmitted disease testing and declines. She has had 1 sexual partners in the past year. She engages in vaginal and oral sex. She prefers men. She is currently using btl for contraception. She denies any hot flushes or night sweats. She is not using hormone therapy. She denies using any complementary or alternative medicines. The patient denies any urinary incontinence. She denies any fecal incontinence. Her last pap smear was in 2017 and was normal. Her next pap smear is due 2022. She engages in breast self awareness. She denies any breast changes. Her last mammogram was never. Patient refuses to get one. counseling given . Patient reports will try the 3d one if insurance covers it. Will order. Her last colonoscopy was never. She denies any n/v, d/c, rectal bleeding. She denies any family history of breast, ovarian, uterine or colon cancer. The patient feels safe at home. She denies any history of drug use. She does smoke 5 cigarettes a day.. She drinks socially. Her mood is good. Histories OB History Para Term AB Living 2 2 0 2 0 2 SAB TAB Ectopic Multiple Live Births 0 0 0 0 2 # Outcome Date GA Lbr Guillermo/2nd Weight Sex Delivery Anes PTL Lv 2 1 Obstetric Comments 3.4 3.2 Past Medical History: Diagnosis Date Angina pectoris Anxiety CHF (congestive heart failure) Coronary artery disease involving [place] coronary artery of [place] heart without angina pectoris08/05/2019 CVA (cerebral vascular accident) Depression DM (diabetes mellitus) GERD (gastroesophageal reflux disease) H/O right coronary artery stent placement High cholesterol HTN (hypertension) Hx of CABG Migraines Osteomyelitis Retinal detachment Right eye Seizures GARY (stress urinary incontinence, female) 02/02/2018 Unilateral AKA, right Family History Problem Relation Age of Onset Diabetes Father type 2 Heart Father High cholesterol Father Hypertension Father Diabetes Son type 1 Hypertension Sister Asthma Paternal Grandmother Arthritis NoFHx defects NoFHx Breast Cancer NoFHx Colon Cancer NoFHx Ovarian Cancer NoFHx Uterine Cancer NoFHx Cancer NoFHx Depression NoFHx Genetic NoFHx Mental retardation NoFHx Neurological NoFHx Psychiatry NoFHx Osteoporosis NoFHx Family Status Relation Name Status Fa Son (Not Specified) Sis (Not Specified) PGMo NoFHx (Not Specified) Past Surgical History: Procedure Laterality Date AMPUTATE LOWER LEG AT KNEE X 3 started with toes/right leg SECTION X 2 EYE SURGERY attached retina [place] ANESTH,OPEN HEART SURGERY+PUMP X 2 TUBAL LIGATION Social History Socioeconomic History Marital status: Spouse [...] Smoking status: Current Every Day Smoker Packs/day: 1.00 Types: Cigarettes Smokeless tobacco: Never Used Substance and Sexual Activity Alcohol use: Yes Comment: rare Drug use: Never Sexual activity: Yes Partners: Male control/protection: Surgical Lifestyle Physical activity: Days per week: Not on file Minutes per session: Not on file Stress: Not on file Relationships Social connections: Talks on phone: Not on file Gets together: Not on file Attends restoration service: Not on file Active member of [...] History Narrative No domestic abuse or violence. Jewish Preference ; none Social History Substance and Sexual Activity Sexual Activity Yes Partners: Male control/protection: Surgical Labs none Radiology none Allergies Karen is allergic to toradol [ketorolac tromethamine] and tramadol. Medications Karen has a current medication list which includes the following prescription(s): gabapentin, aspirin, atorvastatin, azithromycin, clopidogrel, insulin nph and regular human 70-30, metoprolol succinate xl, isosorbide mononitrate, furosemide, albuterol, duloxetine, nitroglycerin, pantoprazole, potassium chloride, phenazopyridine, levetiracetam, nitrofurantoin&nit. macrocryst, metformin, and insulin syringe-needle u-100. Review of Systems Constitutional: Negative for appetite change, fatigue, fever, unexpected weight change, weight gain and weight loss. HENT: Negative for rhinorrhea and sore throat. Eyes: Negative for pain and itching. Respiratory: Negative for cough, chest tightness and shortness of breath. Breasts: Negative for discharge, mass and pain. Cardiovascular: Negative for chest pain, palpitations and leg swelling. Gastrointestinal: Negative for abdominal pain, constipation, diarrhea and nausea. Genitourinary: Negative for bladder incontinence, dysuria, vaginal discharge, difficulty urinating, vaginal pain and pelvic pain. Musculoskeletal: Negative for gait problem and myalgias. Skin: Negative for rash. Neurological: Negative for dizziness and headaches. Psychiatric/Behavioral: Negative for suicidal ideas. The patient is not nervous/anxious. Endocrine: Negative for hair loss, weight gain and weight loss. BP 124/77 (BP Location: Left arm, Patient Position: Sitting, BP CUFF SIZE: Adult Medium) | Pulse 92 | Temp 36.9 C (98.4 F) (Oral) | Resp 18 | Ht 5' 4" (1.626 m) | Wt 178 lb (80.7 kg) | LMP 09/11/2019 | BMI 30.55 kg/m Pregravid BMI: Could not be calculated Physical Exam Vitals reviewed. Constitutional: She is oriented to person, place, and time. Her body habitus is obese. Neck: No mass. No thyromegaly palpated. No neck adenopathy. Cardiovascular: Regular rate and rhythm. Pulmonary/Chest: Normal inspiratory effort. Abdominal: Abdomen is soft. No tenderness present. No hernia palpated or inspected. Neuro/Psychiatric: She has a normal mood and affect. She is oriented to person, place, and time. Skin: Skin normal. Lymphadenopathy: No neck adenopathy present. No axillary adenopathy present. No inguinal adenopathy present. Breast: Right breast exhibits no mass, no nipple discharge and no tenderness. Left breast exhibits no mass, no nipple discharge and no tenderness. Breasts are symmetrical. Normal left breast and normalright breast External genitalia: Normal external genitalia appropriate for age. Urethral meatus: Normal urethral meatus Urethra: Normal urethra. Bladder: No tenderness. Normal bladder Vagina:Normal vagina. No lesion inspected. No abnormal vaginal discharge found. Cervix: Normal cervix. No lesion. No tenderness and no discharge present. Uterus: Uterus is non-tender. Normal uterus Adnexa: Right adnexa without tenderness. Left adnexa without tenderness. Normal left adnexa and normal right adnexa Anus/perineum: Normal perineum and normal anus. +R BKA Assessment/Plan Women's annual routine gynecological examination (primary encounter diagnosis) FOLLOW-UP in 1 yr WWE Screening breast examination Plan: BI SCREENING MAMMOGRAM BILATERAL Tobacco use disorder Smoking cessation discussed Encounter for screening mammogram for malignant neoplasm of breast Plan: BI SCREENING MAMMOGRAM BILATERAL Return to clinic in 1 yr WWE Discussed treatment options. Reviewed patient instructions and provided printed copy. This visit did not involve counseling and coordination that comprised more than 50% of the visit time. Muna Weeks PA-C 10/11/2019 4:45 PM documented in this encounter Plan of Treatment Date Type Specialty Care Team Description 11/06/2019 Office Visit Cardiology Lily Jenkins M D [address] [facility] [address] [place], [place] [address] 01/10/2020 Office Visit Endocrinology Diabetes & Malaika yAnatoly MD [address] [place], [place] [address] [phone] Name Type Priority Associated Diagnoses Order S chedule BI SCREENING MAMMOGRAM IMAGING Routine Encounter for scre ening Expected: 10/11/2019, BILATERAL mammogram for malignant Expi res: 10/10/[address] Screening breast examination Health Maintenance Due Date Last Done Comments [...] YEARS 03/26/2020 Postpone d from COMBINED SERIES ( - 1977 (Refused) PPSV23) CREATININE (SERUM) 08/15/2020 08/16/2019, 08/15/2019, 08/14/2019, Additional history exists FOOT EXAM 09/19/2020 09/20/2019, 09/20/2019, 05/10/2019, Additional history exists PAP SMEAR 09/25/2020 09/25/2017 documented as of this encounter Results Not on filedocumented in this encounter Visit Diagnoses Diagnosis Women's annual routine gynecological exa mination - Primary Screening breast examination Other screening breast examination Tobacco use disorder Encounter for screening mammogram for ma lignant neoplasm of breast Other screening mammogram documented in this encounter Insurance Payer Benefit Plan / Subscriber ID Effective Dates Phone Addre ss Type Group MEDICARE MEDICARE PART xxxxxxxxxxx 2017-Justin [phone] Medicare A & B nt 2 [id number] ALVARADO SUTTON [id number] 1 documented as of this encounter
--- OUTSIDE RECORDS SUMMARY | 2019-12-24 21:45 | XMS REPORT | Summary of Care ---
:1970 Author Organization [facility] - [facility] Address [address] [place] [address] Care Team Providers Name Role Phone Fabby Meléndez Unavailable Bennie Zavala MD Primary Care Provider Eligio Garsia MD Unavailable Reason for Referral Radiology Services (Routine) Status Reason Specialty Diagnoses / Referred By Referred To Procedures Contact Contact New Request Diagnostic Diagnoses Encounter for screening mammogram for malignant neoplasm of breast Screening breast examination Desi, Courtney Procedures BI SCREENING MAMMOGRAM BILATERAL JUNO Toro [address] [facility] [address] [place] [address] Reason for Visit Reason Comments Well Woman Exam Encounter Details Date Type Department Care Team Description 10/11/2019 Office Visit [facility] Women's Muna Weeks Wome n's annual routine gynecological examination (Primary Dx); [facility] JUNO Screening breast examination; 146 [facility], [address] [place] [address] Tobac co use disorder; [address] Encounter for screening mammogram for ma lignant neoplasm of breast [facility] [address] [address] [place], [place] [phone] [address] Allergies Active Allergy Reactions Severity Noted [...] mouth at Coronary artery disease bedtime. involving [place] coronary artery of [place] heart without angina pectoris metoprolol succinate XL Take 1 tablet 30 tablet 11 08/17/2019 Active 100 mg 24 hr by mouth daily. tabletIndications: Coronary artery disease involving [place] coronary artery of [place] heart without angina pectoris azithromycin 250 mg Take 1 tablet 2 tablet 0 08/17/2019 Active tabletIndications: by mouth daily. Coronary artery disease Take 250 mg involving [place] tablet once coronary artery of daily [place] heart without angina pectoris GABAPENTIN 800 mg TAKE 1 TABLET 90 tablet 0 10/01/2019 Active tabletIndications: BY MOUTH THREE Neuropathy TIMES DAILY documented as of this encounter (statuses as of 10/11/2019) Active Problems Problem Noted Date Obesity (BMI 30-39.9) 08/12/2019 Chest pain 08/12/2019 Coronary artery disease involving [place] coronary radha ry of [place] heart 08/05/2019 without angina pectoris PAD (peripheral artery disease) 08/05/2019 Chronic heart failure with preserved ejection fraction 08/05/2019 GARY (stress urinary incontinence, female) 02/02/2018 Overview: Added automatically from request for tate bertha [id number] GERD (gastroesophageal reflux disease) DM (diabetes mellitus) [...] in this age group Every exam 1 [place] [employer] 2 [place] [employer] 3 [place] [employer] 4 [place] [employer] Shake last reviewed this educational content on 03/29/201719991242-2059 [employer]. [address] [place] [address]98. All rights reserved. This information is not intended as a substitute for professional medical care. Always follow your healthcare professional's instructions. Patient Education Clinical Breast Exam Many health organizations recommend a yearly clinical breast exam. This exam may be done by a hydroelectric station chief, family healthcare provider, nurse practitioner, nurse manuscripts curator, or specially trained nurse. Yearly breast exams [...] Guidelines for having clinical breast exams The [place] [employer] Gynecologists recommends that [...] provider about what is best for you. Shake last reviewed this educational content on 12/27/201619993402-6428 [employer] [address] [place] [address] 86611. All rights reserved. This information is not [...] breast self-examination (BSE). These experts include the [place] [employer] and the [place] [employer] of Obstetricians and Gynecologists. Some experts [...] benign. This means they are not cancer. Shake last reviewed this educational content on 12/27/201619990194-7250 [employer]. [address] [place] [address] 94101. All rights reserved. This information is not [...] (congestive heart failure) Coronary artery disease involving [place] coronary artery of [place] heart without angina pectoris08/05/2019 CVA (cerebral vascular [...] SECTION X 2 EYE SURGERY attached retina [place] ANESTH,OPEN HEART SURGERY+PUMP X 2 TUBAL LIGATION [...] file Gets together: Not on file Attends anglican service: Not on file Active member of [...] History Narrative No domestic abuse or violence. Judaism Preference ; none Social History Substance and [...] Visit Cardiology Lily Jenkins M D 146 [facility] [address] [place], [place] [address] 01/10/2020 Office Visit Endocrinology Diabetes & Malaika yAnatoly MD [address] [place], [place] [address] [phone] Name Type Priority Associated Diagnoses Order S [...] BOX Medicare A & B nt 2 [id number] ALVARADO SUTTON [phone] [id number] 1 documented as of this encounter
--- OUTSIDE RECORDS SUMMARY | 2019-12-24 21:45 | XMS REPORT | Summary of Care ---
:1970 Author Organization [facility] - Health Address [address] [place] [address] Care Team Providers Name Role Phone Fabby Meléndez Unavailable Bennie Zavala MD Primary Care Provider Eligio Garsia MD Unavailable Reason for Visit Reason Comments Refill Request Encounter Details Date Type Department Care Team Description 09/30/2019 Refill [facility] Endocrinology- Anatoly Novoa MD Refill Request [address] Professional Office [address] [place] [address] [place] [address] [address] [place] [address] Allergies Active Allergy Reactions Severity Noted [...] at 0 Coronary artery bedtime. disease involving eagle coronary artery of eagle heart without angina pectoris metoprolol succinate Take 1 tablet 30 tablet 11 Active XL 100 mg 24 hr by mouth 0 tabletIndications: daily. Coronary artery disease involving eagle coronary artery of eagle heart without angina pectoris azithromycin 250 mg Take 1 tablet 2 tablet 0 Active tabletIndications: by mouth 0 Coronary artery daily. Take disease involving 250 mg tablet eagle coronary once daily artery of eagle heart without angina pectoris GABAPENTIN 800 mg [...] Chest pain 08/12/2019 Coronary artery disease involving [place] coronary radha ry of eagle heart 08/05/2019 without angina pectoris PAD (peripheral artery disease) 08/05/2019 Chronic heart failure with preserved ejection fraction 08/05/2019 GARY (stress urinary incontinence, female) 02/02/2018 Overview: Added automatically from request for tate stone [id number] GERD (gastroesophageal reflux disease) DM (diabetes mellitus) [...] Visit Obstetrics & Gynecology Muna Weeks PA-C [address] [place] [address] [phone] 11/06/2019 Office Visit Cardiology Lily Jenkins M D 146 [facility] [address] [place], [place] [address] [phone] 01/10/2020 Office Visit Endocrinology Diabetes & Anatoly Chapin MD Metabolism 146 [facility] D r [address] [place], [place] [address] [phone] Health Maintenance Due Date Last Done Comments [...] 03/26/2020 Postpone d from COMBINED SERIES ( of - 1977 (Refused) PPSV23) CREATININE (SERUM) [...] Type Group MEDICARE MEDICARE PART xxxxxxxxxxx 2017-Justin [phone] [address] Medicare A & B nt 2 [id number] ALVARADO SUTTON [id number] documented as of this encounter
--- OUTSIDE RECORDS SUMMARY | 2019-12-24 21:46 | XMS REPORT | Summary of Care ---
:1970 Author Organization [facility] Address [address] [place] [address] Care Team Providers Name Role Phone Fabby Meléndez Unavailable Bennie Zavala MD Primary Care Provider Eligio Garsia MD Unavailable Reason for Visit Reason Comments Diabetes Mellitus II Encounter Details Date Type Department Care Team Description 09/20/2019 Telemedicine Visit [facility] Anatoly Flores Type 2 diabetes mellitus with diabetic peripheral angiopathy without gangrene, with long-term current use of insulin (Primary Dx); Endocrinology- HMD Essential hypertension, benign; [address] Hyperlipidemia, unspecified hyperlipidemia type; Professional Peripheral vascular disease; Office Building [facility] 208 Coronary artery disease involving [place] heart without angina pectoris, unspecified vessel or lesion type 146 [place], [place] [address] [address] [place], [place] [phone] Allergies Active Allergy Reactions Severity Noted Date Comments Ketorolac Tromethamine Hives 12/15/2016 Tramadol Hives 12/15/2016 documented as of this encounter (statuses as of 10/21/2019) Medications Medication Sig Dispensed Refills Start End [...] at 0 Coronary artery bedtime. disease involving [place] coronary artery of [place] heart without angina pectoris metoprolol succinate Take 1 tablet 30 tablet 11 Active XL 100 mg 24 hr by mouth 0 tabletIndications: daily. Coronary artery disease involving [place] coronary artery of [place] heart without angina pectoris azithromycin 250 mg Take 1 tablet 2 tablet 0 Active tabletIndications: by mouth 0 Coronary artery daily. Take disease involving 250 mg tablet [place] coronary once daily artery of [place] heart without angina pectoris gabapentin 800 mg Take 1 tablet 270 tablet 2 0 Discontinued tabletIndications: by mouth 3 9 20 Neuropathy (three) times daily. documented as of this encounter (statuses as of 10/21/2019) Active Problems Problem Noted Date Obesity (BMI 30-39.9) 08/12/2019 Chest pain 08/12/2019 Coronary artery disease involving [place] coronary radha ry of [place] heart 08/05/2019 without angina pectoris PAD (peripheral artery disease) 08/05/2019 Chronic heart failure with preserved ejection fraction 08/05/2019 GARY (stress urinary incontinence, female) 02/02/2018 Overview: Added automatically from request for tate bertha [id number] GERD (gastroesophageal reflux disease) DM (diabetes mellitus) Depression CVA (cerebral vascular accident) CHF (congestive heart failure) Anxiety Angina pectoris H/O right coronary artery stent placement High cholesterol HTN (hypertension) Hx of CABG Migraines Seizures Unilateral AKA, right documented as of this encounter (statuses as of 10/21/2019) Social History Tobacco Use Types Packs/Day Years [...] been in contact with No / Unsure 10/16/2019 11:42 AM CDT someone who was confirmed or 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 documented as of this encounter Last Filed Vital Signs Not on filedocumented in this encounter Progress Notes Anatoly Flores MD - 09/20/2019 4:30 PM CDT Chief Complaint Patient presents with Diabetes Mellitus II Verbal consent obtained from Karen Shah for telehealth services provided below for 15 minutes. Communication with patient was conducted via telephone, as video option wasn't available. Patient was at home, I was in the [facility]. Karen Shah is a 48 year old female following up on type 2 diabetes complicated by AKA, hypertension, hyperlipidaemia, chronic pain. Ms Shah was admitted to the hospital 1 month ago for chest pain. She was optimized medically without further procedures. She is back to her home regimen of 70/30 insulin 80 units twice daily, and metformin 500 mg twice daily. She continues to make efforts in avoiding excess carbs. It is still a struggle for her, as her family's food is equally poor, with some admitted regression during the shutdown. Her exercises are arm only. She sleeps most of the day because she is taking a narcotic for leg pain/phantom leg pain. Her good leg is clear from a vascular standpoint. She has retinopathy, saw her eye physician over a year ago. No blood glucose monitoring done; goes by symptoms only. Hypoglycaemia isn't a feature. For psych, she is on Cymbalta, Last Lab Results Health Maintenance Due HGB A1C (%) Date Value 08/13/2019 10.8 (H) POCT HBA1C (%) Date Value 05/10/2019 10.5 (A) Diabetes related Health Maintenance Due Topic Date Due EYE EXAM 1982 URINE MICROALBUMIN 09/01/2019 Previous Pneumococcal / Influenza Immunizations No immunizations on file. Recent Buzzsaw Operator Visits None Recent Ophthalmology Visits None CREATININE (mg/dL) Date Value 08/16/2019 0.91 MICROALB U (ug/mL) Date Value 08/31/2018 42 CHOL (mg/dL) Date Value 03/26/2019 160 TRIG (mg/dL) Date Value 03/26/2019 566 (H) LDL CHOL (no units) Date Value 03/26/2019 Comment: Unable to calculate LDL due to elevated triglyceride level greater than 400 mg/dL. Diabetes Relevant Medication Classes Last refreshed: 10/16/2019 11:46 AM: Prescribed DK inhibitor No Last refreshed: 10/16/2019 11:46 AM: Prescribed ARBs No Last refreshed: 10/16/2019 11:46 AM: Prescribed statins Yes Last refreshed: 10/16/2019 11:46 AM: Prescribed antiplatelets Yes Last refreshed: 10/16/2019 11:46 AM: Prescribed aspirin Yes Last refreshed: 10/16/2019 11:46 AM: On Fibrates No Current as of: 10/16/2019 11:46 AM HISTORY Past Medical History: Diagnosis Date Angina pectoris Anxiety CHF (congestive heart failure) Coronary artery disease involving [place] coronary artery of [place] heart without angina pectoris08/05/2019 CVA (cerebral vascular [...] SECTION X 2 EYE SURGERY attached retina [place] ANESTH,OPEN HEART SURGERY+PUMP X 2 TUBAL LIGATION [...] file Gets together: Not on file Attends adventist service: Not on file Active member of [...] History Narrative No domestic abuse or violence. Moravian Preference ; none REVIEW OF SYSTEMS Constitutional: + fatigue Eyes: negative. Cardiovascular: negative. Respiratory: negative. Gastrointestinal: negative. Musculoskeletal: + weakness. Neuro: + pain. Endocrine: negative. PHYSICAL EXAM LMP 09/11/2019 No exam--telemedicine. ASSESSMENT ICD-10-CM ICD-9-CM 1. Type 2 diabetes mellitus with diabetic peripheral angiopathy without gangrene, with long-term current use of insulin E11.51 250.70 Z79.4 443.81 V58.67 2. Essential hypertension, benign I10 401.1 3. Hyperlipidemia, unspecified hyperlipidemia type E78.5 272.4 4. Peripheral vascular disease I73.9 443.9 5. Coronary artery disease involving [place] heart without angina pectoris, unspecified vessel or lesion type I25.10 414.01 Not well controlled. PLAN Continue 70/30 insulin to 80 units AM, 90 units PM Continue metformin 2000 mg daily in divided doses. Emphasized improvement eating habits. No orders of the defined types were placed in this encounter. documented in this encounter Plan of Treatment Date Type Specialty Care Team Description 11/01/2019 Appointment Radiology Muna Weeks PA-C 146 [facility] [address] [place] [address] 11/06/2019 Office Visit Cardiology Lily Jenkins M D 146 [facility] [address] [place], [place] [address] 01/10/2020 Office Visit Endocrinology Diabetes & Anatoly Chapin MD Metabolism [address] [place] [address] [phone] Health Maintenance Due Date Last Done Comments [...] Diagnosis Type 2 diabetes mellitus with diabetic p eripheral angiopathy without gangrene, with long-term current use of insulin - Prima ry Essential hypertension, benign Hyperlipidemia, unspecified hyperlipidem ia type Peripheral vascular disease Peripheral vascular disease, unspecified Coronary artery disease involving [place] heart without angina pectoris, unspecified vessel or lesion type documented in this encounter Insurance Payer Benefit Plan / Subscriber ID Effective Dates Phone Addre ss Type Group MEDICARE MEDICARE PART xxxxxxxxxxx 2017-Justin [phone] Medicare A & B nt 2 [id number] ALVARADO SUTTON [id number] 1 documented as of this encounter
--- OUTSIDE RECORDS SUMMARY | 2019-12-24 21:46 | XMS REPORT | Summary of Care ---
:1970 Author Organization [facility] - Health Address [address] [place] [address] Care Team Providers Name Role Phone Fabby Meléndez Unavailable Bennie Zavala MD Primary Care Provider Eligio Garsia MD Unavailable Encounter Details Date Type Department Care Team Description 10/11/2019 Orders Only [facility] Doctor Unassigned, No 301 [facility] [place] [address] [address] [place] [address] Allergies Active Allergy Reactions Severity Noted Date Comments Ketorolac Tromethamine Hives 12/15/2016 Tramadol Hives 12/15/2016 documented as of this encounter (statuses as of 10/22/2019) Medications Medication Sig Dispensed Refills Start Date [...] mouth at Coronary artery disease bedtime. involving [place] coronary artery of [place] heart without angina pectoris metoprolol succinate XL Take 1 tablet 30 tablet 11 08/17/2019 Active 100 mg 24 hr by mouth daily. tabletIndications: Coronary artery disease involving [place] coronary artery of [place] heart without angina pectoris azithromycin 250 mg Take 1 tablet 2 tablet 0 08/17/2019 Active tabletIndications: by mouth daily. Coronary artery disease Take 250 mg involving [place] tablet once coronary artery of daily [place] heart without angina pectoris GABAPENTIN 800 mg TAKE 1 TABLET 90 tablet 0 10/01/2019 Active tabletIndications: BY MOUTH THREE Neuropathy TIMES DAILY documented as of this encounter (statuses as of 10/22/2019) Active Problems Problem Noted Date Obesity (BMI 30-39.9) 08/12/2019 Chest pain 08/12/2019 Coronary artery disease involving [place] coronary radha ry of [place] heart 08/05/2019 without angina pectoris PAD (peripheral artery disease) 08/05/2019 Chronic heart failure with preserved ejection fraction 08/05/2019 GARY (stress urinary incontinence, female) 02/02/2018 Overview: Added automatically from request for tate stone [id number] GERD (gastroesophageal reflux disease) DM (diabetes mellitus) Depression CVA (cerebral vascular accident) CHF (congestive heart failure) Anxiety Angina pectoris H/O right coronary artery stent placement High cholesterol HTN (hypertension) Hx of CABG Migraines Seizures Unilateral AKA, right documented as of this encounter (statuses as of 10/22/2019) Social History Tobacco Use Types Packs/Day Years [...] 11/01/2019 Appointment Radiology Muna Weeks PA-C 146 [facility] [address] [place] [address] 11/06/2019 Office Visit Cardiology Lily Jenkins M D 146 [facility] [address] [place], [place] [address] 01/10/2020 Office Visit Endocrinology Diabetes & Anatoly Chapin MD Metabolism [address] [place] [address] [phone] Health Maintenance Due Date Last Done Comments [...] Postpone d from COMBINED SERIES (1 of 1 - 1977 (Refused) PPSV23) FOOT EXAM 05/10/2020 05/10/2019, 05/10/2019, 01/04/2019, Additional history exists CREATININE (SERUM) 08/15/2020 08/16/2019, 08/15/2019, 08/14/2019, Additional history exists PAP SMEAR 09/25/2020 09/25/2017 documented as of this encounter Procedures Procedure Name Priority Date/Time Associated Diagnosis Comme nts [id number] CONSENT Routine 10/11/2019 12:01 AM CDT documented in this encounter Results Not on filedocumented in this encounter Insurance Payer Benefit Plan / Subscriber ID Effective Dates Phone Addre ss Type Group MEDICARE MEDICARE PART xxxxxxxxxxx 2017-Justin [phone] [address] Medicare A & B nt 2 [id number] ALVARADO SUTTON [id number] documented as of this encounter
--- OUTSIDE RECORDS SUMMARY | 2019-12-24 21:47 | XMS REPORT | Summary of Care ---
:1970 Author Organization [facility] Address [address] [place] [address] Care Team Providers Name Role Phone Fabby Meléndez Kylah Unavailable Bennie Zavala MD Primary Care Provider Eligio Garsia MD Unavailable Reason for Referral Radiology Services (Routine) Status Reason Specialty Diagnoses / Referred By Referred To Procedures Contact Contact Closed Diagnostic Diagnoses Encounter for screening mammogram for malignant neoplasm of breast Screening breast examination Encounter for screening mammogram for malignant neoplasm of breast Screening breast examination Muna Weeks, Radiology Procedures BI SCREENING MAMMOGRAM BILATERAL CHG SCREENING MAMMOGRAPHY BI 2-VIEW BREAST INC CAD BI SCREENING MAMMOGRAM BILATERAL PA-C [address] [address] Reason for Visit Radiology Services (Routine) Status Reason Specialty Diagnoses / Referred By Referred To Procedures Contact Contact Closed Diagnostic Diagnoses Encounter for screening mammogram for malignant neoplasm of breast Screening breast examination Encounter for screening mammogram for malignant neoplasm of breast Screening breast examination Muna Weeks, Radiology Procedures BI SCREENING MAMMOGRAM BILATERAL CHG SCREENING MAMMOGRAPHY BI 2-VIEW BREAST INC CAD BI SCREENING MAMMOGRAM BILATERAL PA-C [address] [facility] [address] [facility] [address] [place] [address] Encounter Details Date Type Department Care Team Description 11/01/2019 Hospital Encounter [facility] Caterina Weeks, Lita [place] [facility] FRAIRE [address] [facility] [address] edmond [address] [place] [address] [phone] Ziy[address] [place] [address] Allergies Active Allergy Reactions Severity Noted Date Comments Ketorolac Tromethamine Hives 12/15/2016 Tramadol Hives 12/15/2016 documented as of this encounter (statuses as of 11/02/2019) Medications Medication Sig Dispensed Refills Start Date [...] mouth at Coronary artery disease bedtime. involving [place] coronary artery of [place] heart without angina pectoris metoprolol succinate XL Take 1 tablet 30 tablet 11 08/17/2019 Active 100 mg 24 hr by mouth daily. tabletIndications: Coronary artery disease involving [place] coronary artery of [place] heart without angina pectoris azithromycin 250 mg Take 1 tablet 2 tablet 0 08/17/2019 Active tabletIndications: by mouth daily. Coronary artery disease Take 250 mg involving [place] tablet once coronary artery of daily [place] heart without angina pectoris GABAPENTIN 800 mg TAKE 1 TABLET 90 tablet 0 10/01/2019 Active tabletIndications: BY MOUTH THREE Neuropathy TIMES DAILY documented as of this encounter (statuses as of 11/02/2019) Active Problems Problem Noted Date Obesity (BMI 30-39.9) 08/12/2019 Chest pain 08/12/2019 Coronary artery disease involving [place] coronary radha ry of [place] heart 08/05/2019 without angina pectoris PAD (peripheral artery disease) 08/05/2019 Chronic heart failure with preserved ejection fraction 08/05/2019 GARY (stress urinary incontinence, female) 02/02/2018 Overview: Added automatically from request for tate bertha [id number] GERD (gastroesophageal reflux disease) DM (diabetes mellitus) Depression CVA (cerebral vascular accident) CHF (congestive heart failure) Anxiety Angina pectoris H/O right coronary artery stent placement High cholesterol HTN (hypertension) Hx of CABG Migraines Seizures Unilateral AKA, right documented as of this encounter (statuses as of 11/02/2019) Social History Tobacco Use Types Packs/Day Years [...] been in contact with No / Unsure 11/01/2019 11:35 AM CDT someone who was confirmed or 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 documented as of this encounter Last Filed Vital Signs Not on filedocumented in this encounter Plan of Treatment Date Type Specialty Care Team Description 11/06/2019 Office Visit Cardiology Lily Jenkins M D 146 [facility] [address] [place], [place] [address] 01/10/2020 Office Visit Endocrinology Diabetes & Anatoly Chapin MD Metabolism 146 [facility] [address] Ziy[address] [place], [place] [address] [phone] Health Maintenance Due Date Last Done Comments EYE EXAM 1982 URINE MICROALBUMIN 09/01/2019 08/31/2018, 05/19/2017 HgA1C 02/13/2020 08/13/2019, 05/10/2019, 08/31/2018, Additional history exists DTaP,Tdap,and Td Vaccines 03/26/2020 Postpo sharon from (1 - Tdap) 1983 (Refu sed) INFLUENZA VACCINE (Season 03/26/2020 Postpo sharon from Ended) 01/28/2020 (Refu sed) LDL-C 03/26/2020 03/26/2019 PNEUMOCOCCAL 0-64 YEARS 03/26/2020 Postpone d from COMBINED SERIES (1 of - 1977 (Refused) PPSV23) Depression Screening 05/10/2020 05/10/2019 FOOT EXAM 05/10/2020 05/10/2019, 05/10/2019, 01/04/2019, Additional history exists CREATININE (SERUM) 08/15/2020 08/16/2019, 08/15/2019, 08/14/2019, Additional history exists PAP SMEAR 09/25/2020 09/25/2017 Breast Cancer Screening 10/31/2020 11/01/2019, 11/06/2017 (MAMMOGRAM) documented as of this encounter Procedures Procedure Name Priority Date/Time Associated Diagnosis Comme nts BI SCREENING Routine 11/01/2019 12:35 PM Encounter for Results for this MAMMOGRAM BILATERAL CDT screening mammogram p rocedure are in for malignant the results neoplasm of tea st section. Screening breast examination documented in this encounter Results BI SCREENING MAMMOGRAM BILATERAL (11/01/2019 12:35 PM CDT) Specimen Narrative Performed At This result has an attachment that is no t available. Examination: PACS BI SCREENING MAMMOGRAM BILATERAL History: Patient is 49 year old and is seen for: Routine mamm ogram screening. Computer-aided detection (CAD) utilized. Comparisons: 11/06/2017 BI SCREENING MAMMOGRAM BILATER AL Findings: The breasts are almost entirely fatty. There is no carlos dence of suspicious masses, calcifications, or other abnormal findings. Impression: No mammographic evidence of malignancy. Recommendation: Annual mammographic follow-up BI-RADS Category: Both 1 - Negative I personally reviewed the study and agree with the res ident's/fellow's report. Performing Organization Address City/State/Zipcode Phone Number PACS documented in this encounter Visit Diagnoses Diagnosis Encounter for screening mammogram for ma lignant neoplasm of breast Other screening mammogram Screening breast examination Other screening breast examination documented in this encounter Insurance Payer Benefit Plan / Subscriber ID Effective Dates Phone Addre ss Type Group MEDICARE MEDICARE PART xxxxxxxxxxx 2017-Justin [phone] Medicare A & B nt 2 [id number] [place] [id number] documented as of this encounter
--- OUTSIDE RECORDS SUMMARY | 2019-12-24 21:47 | XMS REPORT | Summary of Care ---
:1970 Author Organization [facility] - Health Address [address] [place] [address] Care Team Providers Name Role Phone Fabby Meléndez Unavailable Bennie Zavala MD Primary Care Provider Eligio Garsia MD Unavailable Reason for Visit Reason Comments Refill Request Encounter Details Date Type Department Care Team Description 11/03/2019 Refill [facility] Family Medicine Dev Hernandez MD Refill Request - [address] [facility] [place] [address] [place] [address] [phone] Allergies Active Allergy Reactions Severity Noted Date Comments Ketorolac Tromethamine Hives 12/15/2016 Tramadol Hives 12/15/2016 documented as of this encounter (statuses as of 11/04/2019) Medications Medication Sig Dispensed Refills Start End [...] Anxiety and daily. depression, Peripheral neuropathic pain albuterol 90 Inhale 2 Puffs 1 Inhaler [...] at 0 Coronary artery bedtime. disease involving [place] coronary artery of [place] heart without angina pectoris metoprolol succinate Take 1 tablet 30 tablet 11 Active XL 100 mg 24 hr by mouth 0 tabletIndications: daily. Coronary artery disease involving [place] coronary artery of [place] heart without angina pectoris azithromycin 250 mg Take 1 tablet 2 tablet 0 Active tabletIndications: by mouth 0 Coronary artery daily. Take disease involving 250 mg tablet kaw coronary once daily artery of [place] heart without angina pectoris GABAPENTIN 800 mg TAKE 1 TABLET 90 tablet 0 Active tabletIndications: BY MOUTH THREE 0 Neuropathy TIMES DAILY PANTOPRAZOLE 40 mg EC Take 1 tablet 30 tablet 0 Active tabletIndications: by mouth once 0 Gastroesophageal daily reflux disease, esophagitis presence not specified POTASSIUM CHLORIDE 10 Take 1 tablet 30 tablet 0 Active mEq CR by mouth once 0 tabletIndications: daily Hypokalemia pantoprazole 40 mg EC Take 1 tablet 90 tablet 1 0 01/15 Discontinued tabletIndications: by mouth 9 20 Gastroesophageal daily. reflux disease, esophagitis presence not specified potassium chloride 10 Take 1 tablet 90 tablet 1 0 8 Discontinued mEq CR by mouth 9 20 tabletIndications: daily. Hypokalemia documented as of this encounter (statuses as of 11/04/2019) Active Problems Problem Noted Date Obesity (BMI 30-39.9) 08/12/2019 Chest pain 08/12/2019 Coronary artery disease involving [place] coronary radha ry of [place] heart 08/05/2019 without angina pectoris PAD (peripheral artery disease) 08/05/2019 Chronic heart failure with preserved ejection fraction 08/05/2019 GARY (stress urinary incontinence, female) 02/02/2018 Overview: Added automatically from request for tate bertha [id number] GERD (gastroesophageal reflux disease) DM (diabetes mellitus) Depression CVA (cerebral vascular accident) CHF (congestive heart failure) Anxiety Angina pectoris H/O right coronary artery stent placement High cholesterol HTN (hypertension) Hx of CABG Migraines Seizures Unilateral AKA, right documented as of this encounter (statuses as of 11/04/2019) Social History Tobacco Use Types Packs/Day Years [...] Visit Cardiology Lily Jenkins M D 146 [facility] [address] [place], [place] [address] 01/10/2020 Office Visit Endocrinology Diabetes & Anatoly Chapin MD Metabolism 146 [facility] D r Z[address] [place], [place] [address] [phone] Health Maintenance Due Date Last Done Comments [...] SERIES ( of - 1977 (Refused) PPSV23) Depression Screening 05/10/2020 05/10/2019 FOOT EXAM 05/10/2020 05/10/2019, 05/10/2019, 01/04/2019, Additional history exists CREATININE (SERUM) 08/15/2020 08/16/2019, 08/15/2019, 08/14/2019, Additional history exists PAP SMEAR 09/25/2020 09/25/2017 Breast Cancer Screening 10/31/2020 11/01/2019, 11/06/2017 (MAMMOGRAM) documented as of this encounter Results Not on filedocumented in this encounter Visit Diagnoses Diagnosis Gastroesophageal reflux disease, esophag itis presence not specified Hypokalemia Hypopotassemia documented in this encounter Insurance Payer Benefit Plan / Subscriber ID Effective Dates Phone Addre ss Type Group MEDICARE MEDICARE PART xxxxxxxxxxx 2017-Prese [phone] [address] Medicare A & B nt 2 [id number] [place] [address] documented as of this encounter
--- OUTSIDE RECORDS SUMMARY | 2019-12-24 21:47 | XMS REPORT | Summary of Care ---
:1970 Author Organization [facility] - Health Address [address] [place] [address] Care Team Providers Name Role Phone Fabby Meléndez Unavailable Bennie Zavala MD Primary Care Provider Eligio Garsia MD Unavailable Encounter Details Date Type Department Care Team Description 11/01/2019 Orders Only [facility] Doctor Unassigned, No [address] [facility] [address] [address] [place] [address] Allergies Active Allergy Reactions Severity Noted Date Comments Ketorolac Tromethamine Hives 12/15/2016 Tramadol Hives 12/15/2016 documented as of this encounter (statuses as of 11/01/2019) Medications Medication Sig Dispensed Refills Start Date [...] mouth at Coronary artery disease bedtime. involving [place] coronary artery of [place] heart without angina pectoris metoprolol succinate XL Take 1 tablet 30 tablet 11 08/17/2019 Active 100 mg 24 hr by mouth daily. tabletIndications: Coronary artery disease involving [place] coronary artery of [place] heart without angina pectoris azithromycin 250 mg Take 1 tablet 2 tablet 0 08/17/2019 Active tabletIndications: by mouth daily. Coronary artery disease Take 250 mg involving [place] tablet once coronary artery of daily [place] heart without angina pectoris GABAPENTIN 800 mg TAKE 1 TABLET 90 tablet 0 10/01/2019 Active tabletIndications: BY MOUTH THREE Neuropathy TIMES DAILY documented as of this encounter (statuses as of 11/01/2019) Active Problems Problem Noted Date Obesity (BMI 30-39.9) 08/12/2019 Chest pain 08/12/2019 Coronary artery disease involving [place] coronary radha ry of [place] heart 08/05/2019 without angina pectoris PAD (peripheral artery disease) 08/05/2019 Chronic heart failure with preserved ejection fraction 08/05/2019 GARY (stress urinary incontinence, female) 02/02/2018 Overview: Added automatically from request for tate stone [id number] GERD (gastroesophageal reflux disease) DM (diabetes mellitus) Depression CVA (cerebral vascular accident) CHF (congestive heart failure) Anxiety Angina pectoris H/O right coronary artery stent placement High cholesterol HTN (hypertension) Hx of CABG Migraines Seizures Unilateral AKA, right documented as of this encounter (statuses as of 11/01/2019) Social History Tobacco Use Types Packs/Day Years [...] 11/01/2019 Appointment Radiology Muna Weeks PA-C 146 [facility] [address] [place] [address] 11/06/2019 Office Visit Cardiology Lily Jenkins M D 146 [facility] [address] [place], [place] [address] 01/10/2020 Office Visit Endocrinology Diabetes & Anatoly Chapin MD Metabolism [address] [place] [address] [phone] Health Maintenance Due Date Last Done Comments [...] Name Priority Date/Time Associated Diagnosis Comme nts CONSENT/REFUSAL FOR Routine 11/01/2019 11:33 AM DIAGNOSIS AND TREATMENT CDT ASSIGNMENT OF BENEFITS Routine 11/01/2019 11:33 AM CDT documented in this encounter Results Not on filedocumented in this encounter Insurance Payer Benefit Plan / Subscriber ID Effective Dates Phone Addre ss Type Group MEDICARE MEDICARE PART xxxxxxxxxxx 2017-Prese [phone] [address] Medicare A & B nt 2 [id number] [place] [id number] documented as of this encounter
--- OUTSIDE RECORDS SUMMARY | 2019-12-24 21:48 | XMS REPORT | Summary of Care ---
:1970 Author Organization [facility] Address [address] [place] [address] Care Team Providers Name Role Phone Fabby Meléndez Unavailable Bennie Zavala MD Primary Care Provider Eligio Garsia MD Unavailable Reason for Visit Reason Comments Orders Encounter Details Date Type Department Care Team Description 12/10/2019 Telephone [facility] Endocrinology- Anatoly Novoa MD Orders [address] [facility] [address] [place] [address] [place] [address] [phone] Allergies Active Allergy Reactions Severity Noted Date Comments Ketorolac Tromethamine Hives 12/15/2016 Tramadol Hives 12/15/2016 documented as of this encounter (statuses as of 12/11/2019) Medications Medication Sig Dispensed Refills Start End Date Status Date Insulin Use as 180 Syringe 3 Active Syringe-Needle U-100 directed 8 (INSULIN SYRINGE) 1 mL 30 gauge x 10/11 SyrgIndications: Diabetes 1.5, managed as type 1 Nitrofurantoin&Nit. Take 1 30 capsule 2 Active Macrocryst capsule by 9 (MACROBID) 100 mg mouth daily. capsuleIndications: Recurrent UTI levETIRAcetam 500 mg 2 Active tablet 9 phenazopyridine 200 Take 1 tablet 9 tablet 0 Active mg by mouth 3 9 tabletIndications: (three) times Recurrent UTI daily. albuterol 90 Inhale 2 1 Inhaler 1 [...] at 0 Coronary artery bedtime. disease involving [place] coronary artery of [place] heart without angina pectoris metoprolol succinate Take 1 tablet 30 tablet 11 Active XL 100 mg 24 hr by mouth 0 tabletIndications: daily. Coronary artery disease involving [place] coronary artery of [place] heart without angina pectoris azithromycin 250 mg Take 1 tablet 2 tablet 0 Active tabletIndications: by mouth 0 Coronary artery daily. Take disease involving 250 mg tablet [place] coronary once daily artery of [place] heart without angina pectoris pantoprazole 40 mg Take 1 tablet 30 tablet 2 Active EC by mouth 0 tabletIndications: daily. Do not Gastroesophageal Crush or Chew reflux disease, esophagitis presence not specified DULOXETINE 30 mg Take 1 30 capsule 2 Ac tive capsuleIndications: capsule by 0 Anxiety and mouth once depression, daily Peripheral neuropathic pain metFORMIN 500 mg Take 2 360 tablet 1 Ac tive tablet tablets by 0 mouth 2 (two) times daily with meals. POTASSIUM CHLORIDE Take 1 tablet 30 tablet 2 Active 10 mEq CR by mouth once 0 tabletIndications: daily Hypokalemia gabapentin 800 mg Take 1 tablet 90 tablet 0 Active tabletIndications: by mouth 3 0 Neuropathy (three) times daily. GABAPENTIN 800 mg TAKE 1 TABLET 90 tablet 0 12/11/19 Discontinued tabletIndications: BY MOUTH 0 20 ( Reorder) Neuropathy THREE TIMES DAILY documented as of this encounter (statuses as of 12/11/2019) Active Problems Problem Noted Date Obesity (BMI 30-39.9) 08/12/2019 Chest pain 08/12/2019 Coronary artery disease involving [place] coronary radha ry of [place] heart 08/05/2019 without angina pectoris PAD (peripheral artery disease) 08/05/2019 Chronic heart failure with preserved ejection fraction 08/05/2019 GARY (stress urinary incontinence, female) 02/02/2018 Overview: Added automatically from request for tate bertha [id number] GERD (gastroesophageal reflux disease) DM (diabetes mellitus) Depression CVA (cerebral vascular accident) CHF (congestive heart failure) Anxiety Angina pectoris H/O right coronary artery stent placement High cholesterol HTN (hypertension) Hx of CABG Migraines Seizures Unilateral AKA, right documented as of this encounter (statuses as of 12/11/2019) Social History Tobacco Use Types Packs/Day Years [...] Treatment Date Type Specialty Care Team Description 01/10/2020 Office Visit Endocrinology Diabetes & Anatoly Chapin MD Metabolism [address] [address] [phone] Health Maintenance Due Date Last Done Comments EYE EXAM 1982 URINE MICROALBUMIN 09/01/2019 08/31/2018, 05/19/2017 HgA1C 02/13/2020 08/13/2019, 05/10/2019, 08/31/2018, Additional history exists DTaP,Tdap,and Td Vaccines 03/26/2020 Postpo sharon from (1 - Tdap) 1983 (Refu sed) INFLUENZA VACCINE (#1) 2020 Postponed from 01/28/2020 (Refu sed) LDL-C 03/26/2020 03/26/2019 PNEUMOCOCCAL 0-64 YEARS 03/26/2020 Postpone d from COMBINED SERIES (1 of 1 - 1977 (Refused) PPSV23) Depression Screening 05/10/2020 [...] Type Group MEDICARE MEDICARE PART xxxxxxxxxxx 2017-Justin [phone] [address] MAG[address] Medicare A & B nt 2 [id number] [place] [id number] documented as of this encounter
--- OUTSIDE RECORDS SUMMARY | 2019-12-24 21:48 | XMS REPORT | Summary of Care ---
:1970 Author Organization [facility] Address [address] [place] [address] Care Team Providers Name Role Phone Fabby Meléndez Unavailable Bennie Zavala MD Primary Care Provider Eligio Garsia MD Unavailable Reason for Visit Reason Comments Refill Request Encounter Details Date Type Department Care Team Description 12/05/2019 Refill [facility] Endocrinology- Anatoly Novoa MD Refill Request [place] [address] [facility] [address] [facility] [address] [place] [address] [place] [address] [phone] Allergies Active Allergy Reactions Severity Noted Date Comments Ketorolac Tromethamine Hives 12/15/2016 Tramadol Hives 12/15/2016 documented as of this encounter (statuses as of 12/05/2019) Medications Medication Sig Dispensed Refills Start End Date Status Date Insulin Use as 180 Syringe 3 Active Syringe-Needle U-100 directed 8 (INSULIN SYRINGE) 1 mL 30 gauge x 10/11 SyrgIndications: Diabetes 1.5, managed as type 1 Nitrofurantoin&Nit. Take 1 capsule 30 capsule 2 [...] at 0 Coronary artery bedtime. disease involving [place] coronary artery of [place] heart without angina pectoris metoprolol succinate Take 1 tablet 30 tablet 11 Active XL 100 mg 24 hr by mouth 0 tabletIndications: daily. Coronary artery disease involving [place] coronary artery of [place] heart without angina pectoris azithromycin 250 mg Take 1 tablet 2 tablet 0 Active tabletIndications: by mouth 0 Coronary artery daily. Take disease involving 250 mg tablet [place] coronary once daily artery of [place] heart without angina pectoris GABAPENTIN 800 mg [...] by mouth once 0 tabletIndications: daily Hypokalemia metFORMIN 500 mg Take 2 tablets 360 tablet 1 Active tablet by mouth 2 0 (two) times daily with meals. metFORMIN 500 mg Take 2 tablets 360 tablet 3 0 Discontinued tablet by mouth 2 9 20 (two) times daily with meals. You can do two pills in the morning and one in the evening. documented as of this encounter (statuses as of 12/05/2019) Active Problems Problem Noted Date Obesity (BMI 30-39.9) 08/12/2019 Chest pain 08/12/2019 Coronary artery disease involving [place] coronary radha ry of [place] heart 08/05/2019 without angina pectoris PAD (peripheral artery disease) 08/05/2019 Chronic heart failure with preserved ejection fraction 08/05/2019 GARY (stress urinary incontinence, female) 02/02/2018 Overview: Added automatically from request for tate bertha [id number] GERD (gastroesophageal reflux disease) DM (diabetes mellitus) Depression CVA (cerebral vascular accident) CHF (congestive heart failure) Anxiety Angina pectoris H/O right coronary artery stent placement High cholesterol HTN (hypertension) Hx of CABG Migraines Seizures Unilateral AKA, right documented as of this encounter (statuses as of 12/05/2019) Social History Tobacco Use Types Packs/Day Years [...] & Anatoly Chapin MD Metabolism [address] [address] [phone] Health Maintenance Due Date Last Done Comments [...] [address]. [address] Medicare A & B 2 [id number] [place] [phone] documented as of this encounter
--- OUTSIDE RECORDS SUMMARY | 2019-12-24 21:48 | XMS REPORT | Summary of Care ---
:1970 Author Organization [facility] - Health Address [address] [place] [address] Care Team Providers Name Role Phone Fabby Meléndez Unavailable Bennie Zavala MD Primary Care Provider Eligio Garsia MD Unavailable Encounter Details Date Type Department Care Team Description 12/10/2019 Orders Only [facility] Doctor Unassigned, No [address] [facility] [place] [address] [address] [place] [address] Allergies Active Allergy Reactions Severity Noted Date Comments Ketorolac Tromethamine Hives 12/15/2016 Tramadol Hives 12/15/2016 documented as of this encounter (statuses as of 12/10/2019) Medications Medication Sig Dispensed Refills Start Date [...] mouth 3 Recurrent UTI (three) times daily. albuterol 90 Inhale 2 Puffs 1 Inhaler [...] mouth at Coronary artery disease bedtime. involving navajo coronary artery of navajo heart without angina pectoris metoprolol succinate XL Take 1 tablet 30 tablet 11 08/17/2019 Active 100 mg 24 hr by mouth daily. tabletIndications: Coronary artery disease involving navajo coronary artery of navajo heart without angina pectoris azithromycin 250 mg Take 1 tablet 2 tablet 0 08/17/2019 Active tabletIndications: by mouth daily. Coronary artery disease Take 250 mg involving navajo tablet once coronary artery of daily navajo heart without angina pectoris GABAPENTIN 800 mg TAKE 1 TABLET 90 tablet 0 10/01/2019 Active tabletIndications: BY MOUTH THREE Neuropathy TIMES DAILY pantoprazole 40 mg EC Take 1 tablet 30 tablet 2 12/05/2019 Active tabletIndications: by mouth daily. Gastroesophageal reflux Do not Crush or disease, esophagitis Chew presence not specified DULOXETINE 30 mg Take 1 capsule 30 capsule 2 12/05/2019 Active capsuleIndications: by mouth once Anxiety and depression, daily Peripheral neuropathic pain metFORMIN 500 mg tablet Take 2 tablets 360 tablet 1 12/05/2019 Active by mouth 2 (two) times daily with meals. POTASSIUM CHLORIDE 10 Take 1 tablet 30 tablet 2 12/05/2019 Active mEq CR by mouth once tabletIndications: daily Hypokalemia documented as of this encounter (statuses as of 12/10/2019) Active Problems Problem Noted Date Obesity (BMI 30-39.9) 08/12/2019 Chest pain 08/12/2019 Coronary artery disease involving navajo coronary radha ry of navajo heart 08/05/2019 without angina pectoris PAD (peripheral artery disease) 08/05/2019 Chronic heart failure with preserved ejection fraction 08/05/2019 GARY (stress urinary incontinence, female) 02/02/2018 Overview: Added automatically from request for tate stone [id number] GERD (gastroesophageal reflux disease) DM (diabetes mellitus) Depression CVA (cerebral vascular accident) CHF (congestive heart failure) Anxiety Angina pectoris H/O right coronary artery stent placement High cholesterol HTN (hypertension) Hx of CABG Migraines Seizures Unilateral AKA, right documented as of this encounter (statuses as of 12/10/2019) Social History Tobacco Use Types Packs/Day Years [...] Diabetes & Anatoly Chapin MD Metabolism [address] [id number] 15 [phone] Health Maintenance Due Date Last Done Comments EYE EXAM 1982 URINE MICROALBUMIN 09/01/2019 08/31/2018, 05/19/2017 HgA1C 02/13/2020 08/13/2019, 05/10/2019, 08/31/2018, Additional history exists DTaP,Tdap,and Td Vaccines 03/26/2020 Postpo sharon from (1 - Tdap) 1983 (Refu sed) INFLUENZA VACCINE (#1) 2020 Postponed from 01/28/2020 (Refu sed) LDL-C 03/26/2020 03/26/2019 PNEUMOCOCCAL 0-64 YEARS 03/26/2020 Postpone d from COMBINED SERIES ( - 1977 (Refused) PPSV23) Depression Screening 05/10/2020 05/10/2019 FOOT EXAM 05/10/2020 05/10/2019, 05/10/2019, 01/04/2019, Additional history exists CREATININE (SERUM) 08/15/2020 08/16/2019, 08/15/2019, 08/14/2019, Additional history exists PAP SMEAR 09/25/2020 09/25/2017 Breast Cancer Screening 10/31/2020 11/01/2019, 11/06/2017 (MAMMOGRAM) documented as of this encounter Procedures Procedure Name Priority Date/Time Associated Diagnosis Comme nts HOSPITAL ADMISSION MISC Routine 12/10/2019 12:01 AM CDT - MEDICARE PATIENTS RIGHTS IMPORTANT MESSAGE documented in this encounter Results Not on filedocumented in this encounter Insurance Payer Benefit Plan / Subscriber ID Effective Dates Phone Addre ss Type Group MEDICARE MEDICARE PART xxxxxxxxxxx 2017-Justin [phone] Medicare A & B [place] [id number] [place] [id number] documented as of this encounter
[2019-12-24] MEDS ORDERED: ONDANSETRON 4 MG/2 ML VIAL ONE (23:02)
[2019-12-24] MEDS ORDERED: MORPHINE 2 MG/ML SYR ONE (23:02)
--- NOTE | 2019-12-24 23:02 | RAD REPORT ---
EXAM DESCRIPTION: CT - Ct Stroke Brain Wo Cont - 12/24/2019 10:28 pm CLINICAL HISTORY: tia COMPARISON: none TECHNIQUE: Computed axial tomography of the head was obtained. All CT scans are performed using dose optimization technique as appropriate and may include automated exposure control or mA/KV adjustment according to patient size. FINDINGS: An intracranial bleed is not seen . The ventricles are normal in caliber. No extra-axial fluid collection is noted. Fluid within the sinuses/ mastoids is not seen. IMPRESSION: No acute intracranial abnormality is seen. If patient's symptoms persist MRI of the bra in would be recommended. Dr Garsia of the emergency room was notified at 10:56 p.m. December 24, 2019
[2019-12-24 23:03] LABS: Absolute Lymphocytes (CBC) 2.1 K/uL (0.7-4.9); Basophils % 0.8 % (0-1.3); Hematocrit 42.8 % (36.0-45.0); Lymphocytes % 21.3 % (15.3-44.8); MPV 9.5 fL (7.6-11.3); RBC Red Blood Cell Count 4.87 M/uL (3.86-4.86)
[2019-12-24 23:38] LABS: Protime INR 0.94
[2019-12-25] LABS: BUN Blood Urea Nitrogen 21 mg/dL (7-18); Bicarbonate 25 mmol/L (21-32); Potassium 3.9 mmol/L (3.5-5.1); Sodium Level 134 mmol/L (136-145); Troponin (Emerg Dept Use Only) < 0.02 ng/mL (0.0-0.045)
[2019-12-25 00:01] LABS: Glucose Level 409 mg/dL (74-106)
--- NOTE | 2019-12-25 00:01 | EDPHYS ---
Physician Documentation [facility] Name: Karen Shah Age: 49 yrs Sex: Female : 1970 Arrival Date: 12/24/2019 Time: 21:42 Bed 20 Private MD: ED Physician Scar Garsia HPI: 12/23 22:18 This 49 yrs old Female presents to ER via Wheelchair with complaints of Chest pkl Pain, S/S of Possible Stroke. 22:18 The patient's problem is reported as a facial droop, on right, paresthesias, in right pkl upper extremity, in right side of face. Onset: The symptoms/episode began/occurred yesterday afternoon. Associated signs and symptoms: Pertinent positives: numbness, right upper extremity. Patient has H/O of stroke 4 years ago. Has residual numbness and weakness right upper extremity. Historical: - Allergies: 21:53 tramadol; ll1 21:53 Toradol; ll1 21:53 Adhesives; ll1 - Home Meds: 22:37 Metformin Oral [Active]; atorvastatin Oral [Active]; clopidogrel Oral [Active]; ea duloxetine Oral [Active]; escitalopram oxalate Oral [Active]; Furosemide Oral [Active]; gabapentin Oral [Active]; Isosorbide Mononitrate Oral [Active]; Nitroglycerin Topical [Active]; - PMHx: 21:53 Seizures; CAD; High Cholesterol; Diabetes - IDDM; CVA; Hypertension; Myocardial ll1 infarction; Right AKA; - Immunization history:: Flu vaccine is not up to date. - Social history:: Smoking status: Patient reports the use of cigarette tobacco products, smokes one-half pack cigarettes per day, Patient/guardian denies using alcohol, street drugs. ROS: 22:18 Eyes: Negative for injury, pain, redness, and discharge, ENT: Negative for injury, pkl pain, and discharge, Neck: Negative for injury, pain, and swelling. 22:18 Cardiovascular: Positive for chest pain. 22:18 Respiratory: Negative for cough, shortness of breath. 22:18 Abdomen/GI: Negative for abdominal pain, nausea, vomiting, and diarrhea. 22:18 Back: Negative for acute changes. 22:18 : Negative for urinary symptoms. 22:18 MS/extremity: Positive for weakness right upper extremity. 22:18 Skin: Negative for rash. 22:18 Neuro: Positive for numbness, weakness, of the right side face and right upper extremity. Exam: 22:59 Radiologist reports: No acute findings per Dr. Garcia ( Radiologist ). [facility] 22:59 Eyes: Pupils equal round and reactive to light, extra-ocular motions intact. Lids and lashes normal. Conjunctiva and sclera are non-icteric and not injected. Cornea within normal limits. Periorbital areas with no swelling, redness, or edema. 22:59 Head/face: Noted is numbness right side face. 22:59 ENT: Exam is negative for acute changes. 22:59 Neck: Exam negative for acute changes, nuchal rigidity. 22:59 Chest/axilla: Exam negative for acute changes. 22:59 Cardiovascular: Rate: normal, Rhythm: regular. 22:59 ECG was reviewed by the Attending Physician. 22:59 Respiratory: Exam negative for acute changes. 22:59 Abdomen/GI: Bowel sounds: normal, Palpation: abdomen is soft and non-tender, in all quadrants. 22:59 Back: Exam negative for acute changes. 22:59 : Exam negative for acute changes. 22:59 Musculoskeletal/extremity: Exam is negative for 22:59 Skin: Exam negative for 22:59 Neuro: Orientation: is normal, Mentation: is normal, Memory: is normal, Cranial nerves: grossly normal, Cerebellar function: normal finger to nose testing, Motor: Strength is 3/5 in the right upper extremity, Sensation: numbness, that is mild, of the right upper extremity and right side face. Vital Signs: 21:50 BP 121 / 84; Pulse 83; Resp 18; Temp 98.6; Pulse Ox 98% on R/A; Pain 9/10; ll1 21:54 Weight 80.74 kg; Height 5 ft. 4 in. (162.56 cm); ll1 23:07 BP 118 / 79; Pulse 80; Resp 18; Pulse Ox 97% ; ea 21:54 Body Mass Index 30.55 (80.74 kg, 162.56 cm) ll1 NIH Stroke Scale Scores: 23:01 NIHSS Score: 0 ea MDM: 22:00 Patient medically screened. [facility] 22:59 Data reviewed: vital signs, nurses notes, lab test result(s), EKG, radiologic studies. [facility] ED course: Talked to Dr. Eden, no thrombolytics ( outside window ). 23:57 ED course: DrMarissa to Dr. Hernandez, for observation. [facility] 12/23 22:11 Order name: Basic Metabolic Panel; Complete Time: 01:41 12/23 22:11 Order name: CBC with Diff; Complete Time: 23:24 12/23 22:11 Order name: Protime (+inr); Complete Time: 23:44 12/23 22:11 Order name: Ptt, Activated; Complete Time: 23:44 12/23 23:01 Order name: Glucose, Ancillary Testing; Complete Time: 23:11 [facility] 12/23 22:11 Order name: CT Stroke Brain w/o Contrast; Complete Time: 23:11 12/23 22:11 Order name: Stroke CXR 1 View 12/23 23:42 Order name: Troponin (Emerg Dept Use Only); Complete Time: 01:41 [facility] 12/23 23:48 Order name: Hemoglobin A1c [facility] 12/24 00:38 Order name: Lipid Profile [facility] 12/24 00:38 Order name: Lipid Profile [facility] 12/24 00:39 Order name: Echo with Doppler [facility] 12/24 07:06 Order name: LDL, Direct [facility] 12/23 22:11 Order name: EKG; Complete Time: 22:12 12/23 22:11 Order name: Accucheck; Complete Time: 23:01 12/23 22:11 Order name: Cardiac monitoring; Complete Time: 23:01 12/23 22:11 Order name: EKG - Nurse/Tech; Complete Time: 22:22 12/23 22:11 Order name: IV Saline Lock; Complete Time: 23:01 12/23 22:11 Order name: Labs collected and sent; Complete Time: 23:01 12/23 22:11 Order name: NPO; Complete Time: 22:22 12/24 00:38 Order name: Physical Therapy Consult [facility] 12/24 00:39 Order name: Speech Therapy Consult [facility] 12/24 00:39 Order name: Echo with Doppler [facility] 12/24 00:39 Order name: EKG Electrocardiogram [facility] 12/24 00:39 Order name: Brain Wo Cont [facility] 12/24 00:39 Order name: Chest Pa And Lat (2 Views) [facility] 12/24 00:39 Order name: Carotid Artery Bilateral [facility] 12/23 22:11 Order name: O2 Per Protocol; Complete Time: 22:22 bb 12/23 22:11 Order name: O2 Sat Monitoring; Complete Time: 22:22 bb 12/23 22:11 Order name: Stroke Swallow Screen; Complete Time: 22:22 bb Administered Medications: 23:00 Drug: morphine 2 mg Route: IVP; Site: left upper arm; ea 12/24 01:06 Follow up: Response: No adverse reaction ankur 12/23 23:00 Drug: Zofran (Ondansetron) 4 mg Route: IVP; Site: left upper arm; ea 12/24 01:07 Follow up: Response: No adverse reaction ea Point of Care Testing: Blood Glucose: 12/23 22:43 Blood Glucose: 377 mg/dL; ankur Ranges: Critical Glucose Levels:Adult <50 mg/dl or >400 mg/dl <40 mg/dl or >180 mg/dl Disposition: 12/25/19 00:00 Hospitalization ordered by Cory Hernandez for Observation. Preliminary diagnosis is Transient ischemic attack. Chest pain. diabetes. - Bed requested for Telemetry/MedSurg (observation). - Status is Observation. bp - Condition is Stable. - Problem is new. - Symptoms have improved. NIH Stroke Scale - NIH Stroke Score Date: 12/24/2019 Time: 23:01 Total Score = 0 1a. Level of Consciousness (LOC) - 0(Alert) 1b. Level of Consciousness (LOC) (Year \T\ Age) - 0(Both) 1c. LOC Commands (Open \T\ Closes Eyes/Regional Telecommunications Specialist) - 0(Both) 2. Best Gaze (Lateral Gaze Paresis) - 0(Normal) 3. Visual Field Loss - 0(No visual loss) 4. Facial Palsy - 0(Normal) 5a. Left Arm: Motor (10-second hold) - 0(No drift) 5b. Right Arm: Motor (10-second hold) - 0(No drift) 6a. Left Leg: Motor (5-second hold - always test supine) - 9(Amputation, joint fusion) - Notes: Pt has AKA to right lower extremity 6b. Right Leg: Motor (5-second hold - always test supine) - 9(Amputation, joint fusion) - Notes: Pt has right AKA 7. Limb Ataxia (finger/nose \T\ heel/valdivia - test with eyes open) - 9(Amputation, joint fusion) - Notes: pt has AKA on right lower extremity 8. Sensory Loss (pinprick arms/legs/face) - 0(Normal) 9. Best Language: Aphasia (description/naming/reading) - 0(No aphasia) 10. Dysarthria (speech clarity - read or repeat words) - 0(Normal) 11. Extinction and Inattention (visual/tactile/auditory/spatial/personal) - 0(No abnormality) Initials: ea Signatures: Dispatcher [employer] EDMS Scar Garsia MD MD pkl Kalee Sheehan, RN RN Yumiko Santos, RN RN Diana Cantrell, RN Irineo Houser ea RN Flaco Torres RN RN ll1 Corrections: (The following items were deleted from the chart) 23:42 22:18 TROPONIN (EMERG DEPT USE ONLY)+C.[email or web address].BRZ ordered. [facility] 12/24 00: 00:00 Hospitalization Ordered by Cory Hernandez MD for Observation. Preliminary cg diagnosis is Transient ischemic attack. Chest pain. diabetes. Bed requested for Telemetry/MedSurg (observation). Status is Observation. Condition is Stable. Problem is new. Symptoms have improved. pk 06:26 00:31 12/25/2019 00:00 Hospitalization Ordered by Cory Hernandez MD for cg Observation. Preliminary diagnosis is Transient ischemic attack. Chest pain. diabetes. Bed requested for [facility] ER HOLD. Status is Observation. Condition is Stable. Problem is new. Symptoms have improved. cg 10:45 06:26 12/25/2019 00:00 Hospitalization Ordered by Cory Hernandez MD for bp Observation. Preliminary diagnosis is Transient ischemic attack. Chest pain. diabetes. Bed requested for Telemetry/MedSurg (observation). Status is Observation. Condition is Stable. Problem is new. Symptoms have improved. cg
--- NOTE | 2019-12-25 00:01 | ER ---
Nurse's Notes [facility] Name: Karen Shah Age: 49 yrs Sex: Female : 1970 Arrival Date: 12/24/2019 Time: 21:42 Bed 20 Private MD: Diagnosis: Transient ischemic attack. Chest pain. diabetes Presentation: 12/23 21:50 Chief complaint: Patient states: Noticed the right side of her face started drooping ll1 Monday night, then started to have chest pain. Continues today. + NGUYEN. Coronavirus screen: Patient denies a cough. Patient denies shortness of breath or difficulty breathing. Patient denies measured and/or subjective temperature greater than 100.4F prior to today's visit. Patient denies travel on a cruise ship or to a country the [facility] currently lists as an affected area. Patient denies contact with known and/or suspected case of COVID-19. Patient instructed to continue to wear a mask when interacting with others. Patient moved to private room, placed in contact and droplet isolation with eye protection until further assessment. Ebola Screen: Patient denies travel to an Ebola-affected area in the 21 days before illness onset. No acute neurological deficit is noted. Initial Sepsis Screen: Does the patient meet any 2 criteria? No. Patient's initial sepsis screen is negative. Risk Assessment: Do you want to hurt yourself or someone else? Patient reports no desire to harm self or others. Onset of symptoms was December 23, 2019. 21:50 Method Of Arrival: Wheelchair ll1 21:50 Acuity: ARIEL 3 ll1 22:36 Initial Sepsis Screen: Does the patient have a suspected source of infection? No. ea Patient's initial sepsis screen is negative. 22:41 Pre-hospital glucose is not applicable to this patient. ea Triage Assessment: 22:34 The onset of the patients symptoms was December 23, 2019 at 11:00. General: Appears ea uncomfortable, Behavior is appropriate for age. Respiratory: Airway is patent Respiratory effort is even, unlabored, Respiratory pattern is regular, symmetrical. Derm: Skin is pink, warm \T\ dry. 22:38 Neuro: Reports headache. ea Stroke Activation: Symptom onset > 6 hours Physician: Stroke Attending; Name: ; Notified At: ; Arrived At: Physician: Chief Stroke Resident; Name: ; Notified At: ; Arrived At: Physician: Stroke Resident; Name: ; Notified At: ; Arrived At: Physician: ED Attending; Name: ; Notified At: ; Arrived At: Physician: ED Resident; Name: ; Notified At: ; Arrived At: Historical: - Allergies: 21:53 tramadol; ll1 21:53 Toradol; ll1 21:53 Adhesives; ll1 - Home Meds: 22:37 Metformin Oral [Active]; atorvastatin Oral [Active]; clopidogrel Oral [Active]; ea duloxetine Oral [Active]; escitalopram oxalate Oral [Active]; Furosemide Oral [Active]; gabapentin Oral [Active]; Isosorbide Mononitrate Oral [Active]; Nitroglycerin Topical [Active]; - PMHx: 21:53 Seizures; CAD; High Cholesterol; Diabetes - IDDM; CVA; Hypertension; Myocardial ll1 infarction; Right AKA; - Immunization history:: Flu vaccine is not up to date. - Social history:: Smoking status: Patient reports the use of cigarette tobacco products, smokes one-half pack cigarettes per day, Patient/guardian denies using alcohol, street drugs. Screenin:20 Abuse screen: Denies threats or abuse. Nutritional screening: No deficits noted. ea Tuberculosis screening: No symptoms or risk factors identified. Fall Risk None identified. Assessment: 22:19 The patient has not been NPO before screening. The patient is alert, and able to follow ea commands. The patient does not exhibit slurred or garbled speech. The patient is not exhibiting difficulty speaking. The patient is exhibiting difficulty understanding words. The patient is able to swallow own secretions with no drooling or need for suction. Patient tolerated one teaspoon of water. No drooling, immediate coughing, gurgling, or clearing of the throat was noted. The patient tolerated 90mL of water. No drooling, immediate coughing, gurgling, or clearing of the throat was noted. The patient passed the bedside swallow screening. Oral medications may be given as ordered. Contact Physician for further diet orders. Provider notified of bedside swallow screening results: Scar Garsia MD. Pain: Complains of pain in forehead, left temporal area and right temporal area. Neuro: Level of Consciousness is awake, alert, obeys commands, Oriented to person, place, time, situation, Speech is normal, Facial symmetry appears normal. Respiratory: Airway is patent Respiratory effort is even, unlabored, Respiratory pattern is regular, symmetrical. Derm: Skin is pink, warm \T\ dry. 22:31 VAN Scoring: Arm Drift: Patients demonstrates NO arm weakness. Patient is VAN Negative. ea 22:46 Reassessment: Patient appears in no apparent distress at this time. pt blood specimen sg sent to lab as ordered at this time, pt FSBG of 377, informed of fsbg at this time. 23:15 Reassessment: labs to be recollected at this time, reported the specimen to be sg hemolyzed, a green top will be recollected and sent. 23:16 Reassessment: inside lab contacted for help obtaining a recollect specimen, awaiting sg lab at this time. 23:24 Reassessment: Aubrie with phlebo at bedside for recollect on blood specimens at this sg time. 12/24 00:00 Reassessment: Patient appears in no apparent distress at this time. Gurvinder from lab sg states a blood glucose of 409. Vital Signs: 12/23 21:50 BP 121 / 84; Pulse 83; Resp 18; Temp 98.6; Pulse Ox 98% on R/A; Pain 9/10; ll1 21:54 Weight 80.74 kg; Height 5 ft. 4 in. (162.56 cm); ll1 23:07 BP 118 / 79; Pulse 80; Resp 18; Pulse Ox 97% ; ea 21:54 Body Mass Index 30.55 (80.74 kg, 162.56 cm) ll1 NIH Stroke Scale Scores: 23:01 NIHSS Score: 0 ea ED Course: 21:42 Patient arrived in ED. bp1 21:52 Triage completed. ll1 21:53 Arm band placed on Patient placed in an exam room, on a stretcher. ll1 22:00 Scar Garsia MD is Attending Physician. pkl 22:07 EKG done, by ED staff, reviewed by Scar Garsia MD. ll1 22:12 Inserted saline lock: 22 gauge in left ,using aseptic technique. shoulder Blood ll1 collected. Missed attempt(s): 22 gauge in left forearm. Bleeding controlled, band aid applied, catheter tip intact. 22:15 Missed attempt(s): 20 gauge in left antecubital area. Bleeding controlled, band aid ea applied, catheter tip intact. 22:21 Patient has correct armband on for positive identification. Bed in low position. Call ea light in reach. Side rails up X2. 22:27 Stroke CXR 1 View In Process Unspecified. EDMS 22:28 CT Stroke Brain w/o Contrast In Process Unspecified. EDMS 22:34 Diana Miranda, RN is Primary Nurse. ea 23:59 Cory Hernandez MD is Hospitalizing Provider. pkl 12/24 00:01 Notified ED physician of a critical lab result(s). Glucose of 409. sg 00:16 No provider procedures requiring assistance completed. Patient admitted, IV remains in ea place. Administered Medications: 12/23 23:00 Drug: morphine 2 mg Route: IVP; Site: left upper arm; ea 12/24 01:06 Follow up: Response: No adverse reaction ea 12/23 23:00 Drug: Zofran (Ondansetron) 4 mg Route: IVP; Site: left upper arm; ea 12/24 01:07 Follow up: Response: No adverse reaction ea Point of Care Testing: Blood Glucose: 12/23 22:43 Blood Glucose: 377 mg/dL; ea Ranges: Outcome: 12/24 00:00 Decision to Hospitalize by Provider. pkl 01:04 Admitted to ER Hold. Please see [employer] for further documentation. ea 01:04 Condition: stable 01:04 Instructed on the need for admit, Demonstrated understanding of instructions. 10:45 Patient left the ED. bp NIH Stroke Scale - NIH Stroke Score Date: 12/24/2019 Time: 23:01 Total Score = 0 1a. Level of Consciousness (LOC) - 0(Alert) 1b. Level of Consciousness (LOC) (Year \T\ Age) - 0(Both) 1c. LOC Commands (Open \T\ Closes Eyes/Honing Machine Operator Production) - 0(Both) 2. Best Gaze (Lateral Gaze Paresis) - 0(Normal) 3. Visual Field Loss - 0(No visual loss) 4. Facial Palsy - 0(Normal) 5a. Left Arm: Motor (10-second hold) - 0(No drift) 5b. Right Arm: Motor (10-second hold) - 0(No drift) 6a. Left Leg: Motor (5-second hold - always test supine) - 9(Amputation, joint fusion) - Notes: Pt has AKA to right lower extremity 6b. Right Leg: Motor (5-second hold - always test supine) - 9(Amputation, joint fusion) - Notes: Pt has right AKA 7. Limb Ataxia (finger/nose \T\ heel/valdivia - test with eyes open) - 9(Amputation, joint fusion) - Notes: pt has AKA on right lower extremity 8. Sensory Loss (pinprick arms/legs/face) - 0(Normal) 9. Best Language: Aphasia (description/naming/reading) - 0(No aphasia) 10. Dysarthria (speech clarity - read or repeat words) - 0(Normal) 11. Extinction and Inattention (visual/tactile/auditory/spatial/personal) - 0(No abnormality) Initials: ea Signatures: Dispatcher [employer] EDMS Adair Barnes RN Scar Maza MD MD pkl Antunez, Elena RN Irineo Houser ea RN RN Flaco Sands RN RN ll1 Monica Devi [facility] Corrections: (The following items were deleted from the chart) 00:02 00:01 Notified ED physician of a critical lab result(s). FSBG of 409 [facility]
[2019-12-25] MEDS ORDERED: ONDANSETRON 4 MG/2 ML VIAL IV PRN (00:34)
[2019-12-25] MEDS ORDERED: ACETAMINOPHEN 500 MG TAB PO PRN (00:34)
[2019-12-25 01:16] VITALS: BMI 30.5
[2019-12-25] MEDS ORDERED: TEMAZEPAM 15 MG CAP PO PRN (01:50)
[2019-12-25] MEDS: NA CHLORIDE 0.9% 1,000 ML IV SCH ×2 (02:00→14:20)
[2019-12-25] MEDS ORDERED: NA CHLORIDE 0.9% 1,000 ML ONE (02:02)
[2019-12-25] MEDS: HYDROCODONE/APAP 10/325 TAB PO PRN ×2 (04:08→09:00)
[2019-12-25] MEDS ORDERED: HYDROCODONE/APAP 10/325 TAB ONE ×2 (04:16→10:09)
[2019-12-25 06:52] LABS: HDL Cholesterol 39 mg/dL (40-60)
[2019-12-25 07:05] LABS: LDL, Direct 102 mg/dL (100-129)
--- NOTE | 2019-12-25 08:30 | RAD REPORT ---
EXAM DESCRIPTION: - CP - 12/25/2019 7:38 am CLINICAL HISTORY: WEAKNESS; TIA VS CVA Headache, drowsiness COMPARISON: No comparisons TECHNIQUE: Real-time sonographic evaluation of both carotid systems was performed. Doppler interroga tion was performed with waveform tracing bilaterally. FINDINGS: Normal high resistance waveforms are noted in both external carotid arteries. The common c arotid arteries and internal carotid arteries show normal low resistance waveforms. No significant plaque formation is seen. Peak systolic and end diastolic velocity values and the ICA/ CCA ratios are in the non-hemodynamically significant range. Antegrade flow seen in both vertebral arteries. IMPRESSION: No significant atherosclerotic changes noted. No evidence of a hemodynamically significant stenosis.
[2019-12-25] MEDS ORDERED: GLUCAGON 1 MG/VIAL IM PRN (08:53)
[2019-12-25] MEDS ORDERED: D50W 25 GM/50 ML SYRINGE/VIAL IV PRN (08:53)
[2019-12-25] MEDS ORDERED: CLOPIDOGREL 75 MG TABLET PO SCH (09:00)
[2019-12-25] MEDS ORDERED: ASPIRIN EC 81 MG TAB PO SCH (09:00)
[2019-12-25] MEDS ORDERED: levETIRAcetam 500 MG TAB PO SCH (09:00)
[2019-12-25] MEDS ORDERED: ENOXAPARIN 40 MG/0.4 ML SQ SCH (09:00)
[2019-12-25] MEDS ORDERED: ISOSORBIDE MONO SR 30 MG TAB PO SCH (09:00)
--- NOTE | 2019-12-25 10:02 | RAD REPORT ---
EXAM DESCRIPTION: MRI - Brain Wo Cont - 12/25/2019 9:10 am CLINICAL HISTORY: WEAKNESS; TIA VS CVA COMPARISON: Ct Stroke Brain Wo Cont dated 12/24/2019 TECHNIQUE: Multi-sequence, multiplanar MR imaging of the brain was performed without contrast. FINDINGS: No intracranial hemorrhage, hydrocephalus or extra-axial fluid collections. No edema or sh ift of midline structures. No findings to suspect brain mass. DWI is negative for acute CVA. Midline structures are normally formed. Mastoid air cells and paranasal sinuses are clear. IMPRESSION: Negative for acute CVA or other acute intracranial process.
--- NOTE | 2019-12-25 10:04 | RAD REPORT ---
EXAM DESCRIPTION: XR Chest 1 View CLINICAL HISTORY: CHEST PAIN TECHNIQUE: Single frontal view of the chest is submitted. COMPARISON: None available for comparison FINDINGS: Heart: The cardiothoracic silhouette is mildly enlarged. Prior cardiac surgery. Lungs: No focal consolidation. Mediastinum: Unremarkable Pleura: No appreciable effusion. No pneumothorax. Bones: Prior median sternotomy. No acute fracture. Upper abdomen: Unremarkable IMPRESSION: No acute disease. Electronically signed by: Higinio Mendoza MD 12/25/2019 3:17 AM CDT Due to temporary technical issues with the PACS/Fluency reporting system, reports are being signed by the in house radiologist without review as a courtesy to ensure prompt reporting. The interpreting r adiologist is fully responsible for the content of the report.
[2019-12-25] MEDS ORDERED: CLOPIDOGREL 75 MG TABLET ONE (10:08)
[2019-12-25] MEDS ORDERED: levETIRAcetam 500 MG TAB ONE (10:09)
[2019-12-25] MEDS ORDERED: ENOXAPARIN 40 MG/0.4 ML SQ ONE (10:09)
[2019-12-25] MEDS ORDERED: ASPIRIN EC 81 MG TAB PO ONE (10:09)
[2019-12-25 10:53] VITALS: O2SAT 97
[2019-12-25 11:28] VITALS: BP 136/81; TEMP 97
[2019-12-25] MEDS ORDERED: POTASSIUM CL SA 10 MEQ TAB PO ONE (12:00)
--- NOTE | 2019-12-25 12:13 | P.HP ---
Certification for Inpatient Patient admitted to: Observation With expected LOS: <2 Midnights Patient will require the following post-hospital care: None Practitioner: I am a practitioner with admitting privileges, knowledge of patient current condition, hospital course, and medical plan of care. Services: Services provided to patient in accordance with Admission requirements found in Title 42 Section 412.3 of the Code of Federal Regulations Patient History Date of Service: 12/25/19 Reason for admission: Stroke symptoms History of Present Illness: Patient is a 49-year-old female who came into the hospital with numbness and weakness. Patient has had recurrent episodes similar to this. She has been diagnosed with a stroke in the past as well. Patient presents to the hospital for further evaluation. The patient had multiple diagnostic studies including MRI. MRI did not reveal any acute infarct. Patient was admitted to the hospital for further evaluation. Allergies tramadol Allergy (Mild, Verified 12/29/18 21:16) Hives/Rash adhesive tape Allergy (Verified 12/30/18 02:54) Hives ketorolac [From Toradol] Allergy (Verified 12/29/18 21:16) Hives/Rash Home Medications: Ranolazine [Ranexa] 500 mg PO BID 05/15/17 Aspirin 81 mg PO DAILY #30 tab.chew 05/16/17 Atorvastatin Calcium [Lipitor] 40 mg PO BEDTIME #30 tab 05/16/17 Clopidogrel Bisulfate [Plavix] 75 mg PO DAILY #30 tablet 05/16/17 Duloxetine HCl 30 mg PO DAILY #30 capsule. 05/16/17 Gabapentin 800 mg PO TID #120 tablet 05/16/17 levETIRAcetam [Levetiracetam] 500 mg PO BID #60 tablet 05/16/17 Pantoprazole [Protonix Tab*] 40 mg PO DAILY #30 tab 05/17/17 Insulin 70/30 NPH/Reg Human [Novolin 70/30*] 80 unit SQ BIDAC 12/30/18 Metformin HCl 1,000 mg PO BIDWM 12/30/18 Isosorbide Mononitrate [Isosorbide Mononitrate ER] 30 mg PO DAILY 12/31/18 Fluconazole 150 mg PO DAILY 08/12/19 Potassium Chloride 10 meq PO DAILY 08/12/19 - Past Medical/Surgical History Diabetic: Yes -: Coronary artery disease -: Type 1 diabetes -: liver cyst -: neuropathy -: 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 -: Peripheral arterial disease -: Hypertension -: cva -: chf -: recurrent yeast infection -: triple bypass (heart) 2012 -: 2 C-Sections -: double bypass 2015 -: 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 -: Below knee amputation 2014 -: Above knee amputation 2014 -: Eye surgery for detached retina 2015 - Family History Father Medical History: Heart disease, Hypertension, Diabetes Notes: Pt's father of an [employer] Mother Medical History: Other (see notes) Notes: hyperlipidemia Brother Medical History: Diabetes Notes: Brother recently diagnosed in 2016 Sister Medical History: Hypertension - Social History Smoking Status: Current every day smoker Alcohol use: No Review of Systems 10-point ROS is otherwise unremarkable Physical Examination - Vital Signs Temperature: 97 F Blood Pressure: 136/81 Pulse: 84 Respirations: 18 Pulse Ox (%): 92 - Physical Exam General: Alert, In no apparent distress, Oriented x3 HEENT: Atraumatic, PERRLA, Mucous membr. moist/pink, EOMI, Sclerae nonicteric Neck: Supple, 2+ carotid pulse no bruit, No LAD, Without JVD or thyroid abnormality Respiratory: Clear to auscultation bilaterally, Normal air movement Cardiovascular: Regular rate/rhythm, Normal S1 S2 Gastrointestinal: Normal bowel sounds, No tenderness Musculoskeletal: No tenderness, Other (AKA) Integumentary: No rashes Neurological: Normal speech, Normal tone, Sensation intact, Cranial nerves 3-12 intact Lymphatics: No axilla or inguinal lymphadenopathy - Studies Laboratory Data (last 24 hrs) 12/24/19 23:26: Sodium 134 L, Potassium 3.9, BUN 21 H, Creatinine 1.34 H, Glucose 409 H* 12/24/19 22:40: PT 11.2, INR 0.94, APTT 25.6 12/24/19 22:40: WBC 10.0, Hgb 14.7, Hct 42.8, Plt Count 298 Assessment & Plan - Problems (Diagnosis) (1) Chest pain, rule out acute myocardial infarction Onset Date: 05/16/17 Status: Acute (2) Diabetes mellitus Status: Acute Qualifiers: (3) History of peripheral arterial disease Status: Acute (4) Hx of CABG Status: Chronic (5) Obesity Status: Chronic (6) S/P AKA (above knee amputation) unilateral Status: Chronic (7) CVA (cerebral vascular accident) Status: Acute (8) TIA (transient ischemic attack) Status: Acute - Plan 1. MRI of the brain 2. Echocardiogram and carotid Doppler 3. Anti-platelet therapy and statin therapy 4. Neurology consultation 5. Physical therapy/occupational therapy/speech therapy is not needed as patient's symptoms resolved 6. DVT prophylaxis Discharge Plan: Home Plan to discharge in: 24 Hours - Advance Directives Does patient have a Living Will: No Does patient have a Durable POA for Healthcare: No - Code Status/Comfort Care Code Status Assessed: Yes Code Status: Full Code Critical Care: No Time Spent Managing PTS Care (In Minutes): 45 Home Medications: Ranolazine [Ranexa] 500 mg PO BID 05/15/17 Aspirin 81 mg PO DAILY #30 tab.chew 05/16/17 Atorvastatin Calcium [Lipitor] 40 mg PO BEDTIME #30 tab 05/16/17 Clopidogrel Bisulfate [Plavix] 75 mg PO DAILY #30 tablet 05/16/17 Duloxetine HCl 30 mg PO DAILY #30 capsule. 05/16/17 Gabapentin 800 mg PO TID #120 tablet 05/16/17 levETIRAcetam [Levetiracetam] 500 mg PO BID #60 tablet 05/16/17 Pantoprazole [Protonix Tab*] 40 mg PO DAILY #30 tab 05/17/17 Insulin 70/30 NPH/Reg Human [Novolin 70/30*] 80 unit SQ BIDAC 12/30/18 Metformin HCl 1,000 mg PO BIDWM 12/30/18 Isosorbide Mononitrate [Isosorbide Mononitrate ER] 30 mg PO DAILY 12/31/18 Fluconazole 150 mg PO DAILY 08/12/19 Potassium Chloride 10 meq PO DAILY 08/12/19 Patient Discharge Instructions: OK TO DC IV AND DC HOME. FOLLOW-UP WITH PRIMARY CARE PROVIDER IN 1-2 WEEKS. FOLLOW-UP WITH NEUROLOGY IN 1-2 WEEKS. RETURN TO THE ER IF SYMPTOMS WORSENS. CALL DR. REYES AT [phone] IF ANY QUESTIONS REGARDING HOSPITAL STAY. PLEASE CALL THE FLOOR AT [phone] IF ANY MEDICATION OR NURSING QUESTIONS. Diet: ADA (aha) Activity: Fall precautions Time spent managing pt's care (in minutes): 30 Date of Service: 12/25/19 Patient does well during hospital stay. Patient's MRI is negative. Carotid Doppler unremarkable. At this time, patient is stable for discharge home with outpatient follow up.
[2019-12-25] MEDS ORDERED: INSULIN 70/30 100 UNITS/ML SQ SCH (16:30)
[2019-12-25] MEDS ORDERED: ATORVASTATIN 20 MG TAB PO SCH (21:00)
--- NOTE | 2019-12-26 07:35 | EKG ---
Test Date: 2019-12-24 Test Time: 22:00:29 Computer Systems Architect: JUN MEASUREMENT RESULTS: Intervals: Rate: 80 IN: 144 QRSD: 80 QT: 404 QTc: 465 [place]: P: 46 IN: 144 QRS: -14 T: 35 INTERPRETIVE STATEMENTS: Normal sinus rhythm Voltage criteria for left ventricular hypertrophy Possible Inferior infarct, age undetermined Anterior infarct, age undetermined Abnormal ECG Compared to ECG 08/12/2019 06:04:53 Left ventricular hypertrophy now present Myocardial infarct finding still present Electronically Signed On 12-26-19 07:32:42 CDT by Griffin Mejia
--- NOTE | 2019-12-26 10:05 | ECHO ---
HEIGHT: 5 ft 4 in WEIGHT: 178 lb 0.02 oz DATE OF STUDY: 12/25/[address]: Cory Hernandez MD 2-DIMENSIONAL: YES M.MODE: YES DOPPLER: YES COLOR FLOW: YES TDS: YES PORTABLE: NO DEFINITY: NO BUBBLE STUDY: NO DIAGNOSIS: WEAKNESS CARDIAC HISTORY: CATHERIZATION: YES SURGERY: YES PROSTHETIC VALVE: NO PACEMAKER: NO MEASUREMENTS (cm) DIASTOLIC (NORMALS) SYSTOLIC (NORMALS) IVSd 1.1 (0.6-1.2) LA Diam 3.1 (1.9-4.0) LVEF 33% LVIDd 3.5 (3.5-5.7) LVIDs 3.0 (2.0-3.5) %FS 15% LVPWd 1.2 (0.6-1.2) Ao Diam 2.4 (2.0-3.7) 2 DIMENSIONAL ASSESSMENT: RIGHT ATRIUM: NORMAL LEFT ATRIUM: NORMAL RIGHT VENTRICLE: NORMAL LEFT VENTRICLE: NORMAL TRICUSPID VALVE: NORMAL MITRAL VALVE: NORMAL PULMONIC VALVE: NORMAL AORTIC VALVE: NORMAL PERICARDIAL EFFUSION: NONE AORTIC ROOT: NORMAL LEFT VENTRICULAR WALL MOTION: SEVERE GLOBAL HYPOKINESIS. DOPPLER/COLOR FLOW: MILD TRICUSPID REGURGITATION. NORMAL RIGHT VENTRICULAR SYSTOLIC PRESSURE. COMMENTS: SEVERE GLOBAL HYPOKINESIS. LEFT VENTRICULAR EJECTION FRACTION 30-35%. NO EFFUSION. MILD TRICUSPID REGURGITATION. TECHNOLOGIST: Anastacio TRAYLOR
--- NOTE | 2019-12-27 20:52 | CON ---
Reason For Consultation: Consultation called because of transient ischemic attack. History Of Present Illness: Ms. Shah is a 49-year-old right-handed patient with history of diabetes mellitus, dyslipidemia, hypertension, myocardial infarction, and seizures, who comes in a fter more than 24 hours of some right facial drooping and chest pain. Symptoms actually have resolve d at the time of her evaluation at [facility]. Her head CT scan showed no acute ischemic or hemorrhagic change. Subsequent brain MRI ruled out the presence of an acute stroke. The study was not significant for small vessel disease. The rest of her stroke workup included an echocardiogram s howing ejection fraction low of 33% with severe global hypokinesis and mild tricuspid regurgitation. Her carotid artery ultrasound showed no significant arthrosclerotic changes or hemodynamically signi ficant stenosis. Electrocardiogram showed a normal sinus rhythm with voltage criteria for left ventr icular hypertrophy, possible inferior infarct age undetermined, and anterior infarct age undetermined . Past Medical History: As indicated. Allergies: TRAMADOL, TORADOL, ADHESIVE TAPE. Medications: At home, metformin, atorvastatin, clopidogrel, duloxetine, citalopram, furosemide, fabricio pentin, isosorbide, nitroglycerin. Past Medical History: As indicated with myocardial fraction, coronary artery disease, seizures, dysl ipidemia, diabetes mellitus that is insulin dependent, and stroke with good resolution. Past Surgical History: Right jnhue-its-nase amputation. Social History: She smokes tobacco, cigarettes 1 to 1 pack daily. Denies alcohol or IV drugs. Review of Systems: Aside from mentioned, she denies any pain at her stump. No fevers, chills, nausea, or vomiting. No myalgias or arthralgias. No rash or weight change. Physical Examination: Vital Signs: Blood pressure 136/81, pulse 84, respiratory rate 18, temperature 97, oxygen saturation 92% to 97% on room air. Weight 178 pounds, height 5 feet 4 inches, BMI 30. General: Ms. Shah is resting in bed, in no acute distress. HEENT: Normocephalic, atraumatic. Sclerae anicteric. Oropharynx is pink and moist. Neck: Supple. Chest: Clear. Heart: Regular. Extremities: She has right above-knee amputation, otherwise intact in the left lower extremity. Neurological: She has no focal neurologic deficits, cranial nerve, motor, sensory, coordination, or gait. Laboratory Studies: Complete blood count with differential is unremarkable. Her red blood cell coun t, however, is slightly elevated at 4.87. Coagulation panel is normal. Chemistries show glucose up to 409, creatinine elevated at 1.34. Her calcium low at 7.8, triglycerides elevated at 418, HDL low at 39, LDL cholesterol 102. Assessment: Ms. Shah is a 49-year-old patient with a transient ischemic attack in the setting of uncontrolled diabetes mellitus, hypertension, dyslipidemia, and renal insufficiency, possibly related to her dehydration. She has a history of prior stroke and myocardial infarction. Plan: 1.Aggressive management of diabetes mellitus, hypertension, dyslipidemia. 2.Aspirin 81 mg daily, Lipitor 40 mg at bedtime, Plavix 75 mg daily while in hospital, Lovenox 40 mg subcutaneously daily. Also for her seizures, Keppra 500 mg twice daily and all of her management fo r her renal insufficiency per primary team. She may be discharged home. Follow up with Dr. Eden in the office in 1 month. At this point, no evidence of any focal neurological deficits. She should maintain a seizure or event diary and bring it to clinic when she is being foll owed in clinic. BASHIR/KANDIS Voice ID: [id number] Report ID: [id number]
== END 2019-12-25 15:30 | disposition home or self-care (01) ==
LOC: ER 21:41 → ERHOLD 12-25 00:47 → 2ND 12-25 10:24
PROVIDERS: ADMIT Hospitalist; ATTEND Hospitalist
DX: G45.9 Transient cerebral ischemic attack, unspecified (principal); R07.89 Other chest pain; E10.65 Type 1 diabetes mellitus with hyperglycemia; E10.40 Type 1 diabetes mellitus with diabetic neuropathy, unspecified; E10.51 Type 1 diabetes mellitus with diabetic peripheral angiopathy without gangrene; N28.9 Disorder of kidney and ureter, unspecified; E66.9 Obesity, unspecified; Z68.30 Body mass index [BMI] 30.0-30.9, adult; E78.5 Hyperlipidemia, unspecified; I25.2 Old myocardial infarction; I69.351 Hemiplegia and hemiparesis following cerebral infarction affecting right dominant side; I69.398 Other sequelae of cerebral infarction; I07.1 Rheumatic tricuspid insufficiency; R94.31 Abnormal electrocardiogram [ECG] [EKG]; I11.0 Hypertensive heart disease with heart failure; I50.9 Heart failure, unspecified; I25.10 Atherosclerotic heart disease of native coronary artery without angina pectoris; G40.909 Epilepsy, unspecified, not intractable, without status epilepticus; F17.210 Nicotine dependence, cigarettes, uncomplicated; Z79.84 Long term (current) use of oral hypoglycemic drugs; Z79.02 Long term (current) use of antithrombotics/antiplatelets; Z79.899 Other long term (current) drug therapy; Z95.1 Presence of aortocoronary bypass graft; Z89.611 Acquired absence of right leg above knee; Z82.49 Family history of ischemic heart disease and other diseases of the circulatory system
CPT/HCPCS: 93005; 93306; 85025; 80048; 36415; 83721; 85610; 80061; 82947 ×2; 85730; 84484; 70450; 71045; 93880; 70551; 97161; 96375; 96374; 99285; J1650; J2270; J7030; J2405; G0378 ×2

== ENCOUNTER 2020-05-06 00:45 | Observation (INO) | payer OTHER ==
--- OUTSIDE RECORDS SUMMARY | 2020-05-06 01:05 | XMS REPORT | Continuity of Care Document ---
:1970 Author Organization [facility] t Address [address] [place] [address] Care Team Providers Name Role Phone Rita BROWN, L Attending Clinician Lucas BROWN, A Attending Clinician Mark BROWN, H Attending Clinician Problems Condition Condition Condition Status [...] with with l hyperglyce hyperglyce Ou tpati [facility] ent Clinics Type 2 Type [address] [facility] diabetes diabetes [facility] - mellitus mellitus Memori a with other with other l specified specified Outp ati complicati complicati en t on on Clinics Hx of CABG Hx of CABG Problem Active [facility] Chronic Chronic Problem Active [facility] pain pain [facility] disorder disorder [facility] prison prison Problem Active [facility] current current [facility] - use of use of Memoria insulin insulin l [facility] Neuropathy Neuropathy Problem Active [facility] ent [facility] Depression Depression Problem Active [facility] with with [facility] - anxiety anxiety Memoria l [facility] ent Clinics HTN HTN Problem Active [facility] (hypertens (hypertens Charley kes - ion), ion), Memoria benign benign l [facility] ent [facility] Seizures Seizures Problem [facility] Coronary Coronary Problem Active [facility] artery artery [facility] - disease disease Memoria involving involving l coronary coronary Outpat i bypass bypass ent graft of graft of [place] with heart with angina angina pectoris pectoris Dependent Dependent Problem Active [facility] on on [facility] - wheelchair wheelchair Me moria l [facility] History of History of Problem Active [facility] right right [facility] - above knee above knee Me moria amputation amputation l [facility] Allergies, Adverse Reactions, Alerts Allergy Allergy Status Severity Reaction(s) Onset Inactive Treating Comm ents Source Name Type Date Date Clinician Toradol Adverse Active Info Not [facility] Reaction Available [facility] tramadol Adverse Active Info Not [facility] Reaction Available [facility] Medications Ordered Filled Start Stop Current Ordering Indication Dosage Frequency Signature Comments Components Source Medication Medication Date Date Medication? Clinician (SIG) Name Name Atorvastati Atorvastati Yes Dada [address] [facility] n Calcium n Calcium [facility] - Memoria l [facility] ent Clinics Lexapro Lexapro Yes Dada [address] [facility] Metoprolol Metoprolol Yes Dada [address] [facility] Tartrate Tartrate Horan with food L ukes - Memoria l [facility] ent Clinics Ranexa Ranexa Yes Dada 1 tablet [facility] Clinics Insulin Insulin Yes Dada [address] [facility] [address] Aspart Prot Aspart Prot Horan BID [facility] - & Aspart & Aspart Memoria l [facility] ent Clinics Aspirin Aspirin Yes Dada [address] [facility] Gabapentin Gabapentin Yes Dada [address] [facility] ent [facility] Furosemide Furosemide Yes Dada [address] [facility]ics Duloxetine Duloxetine Yes Dada [address] [facility] HCl HCl [facility]an [facility] Xanax Xanax Yes Dada [address] [facility] Clopidogrel Clopidogrel Yes Dada [address] [facility] Bisulfate Bisulfate [facility] Metformin Metformin Yes Dada [address] [facility] [address] HCl HCl Horan with meals [facility] Pantoprazol Pantoprazol Yes Dada [address] [facility] e Sodium e Sodium [facility]an [facility] Klor-Con Klor-Con Yes Dada [address] M10 M10 Horan with food [facility] Duloxetine Duloxetine Yes Dada [address] [facility] [address] HCl HCl [facility] Levetiracet Levetiracet Yes Dada [address] [facility] am am [facility]an [facility] [place] Denton Yes Dada [address] [facility] Horan as needed [facility] Lexapro Lexapro Yes Dada [address] [facility] Atorvastati Atorvastati Yes Dada [address] [facility] n Calcium n Calcium [facility]an [facility]pat[facility] ent Clinics Clopidogrel Clopidogrel Yes Dada [address] [facility] [address] Bisulfate Bisulfate [facility] Furosemide Furosemide Yes Dada [address] [facility] Procedures This patient has no known procedures. Encounters Start End Encounter Admission Attending Care Care Encounter Source Date/Time Date/Time Type Type Clinicians Facility Department ID 2020-04-17 2020-04-17 [facility] [id number] 11:00:00 11:30:00 ne Visit Sisi Hawkins [id number] [place] [id number] Professio [phone] [address] 2020-04-14 2020-04-14 [facility] [id number] 00:00:00 00:00:00 Wondiful A [facility] [id number] Shruthi [id number] Professio [phone] [address] 2020-04-13 2020-04-13 Amy Flores, [facility] [id number] 00:00:00 00:00:00 Anatoly Hawkins [id number] [place] [id number] Professio [phone] [facility] [address] Building 2020-04-08 2020-04-08 Telephone Adum, [facility] [id number] 00:00:00 00:00:00 Sisi Hawkins [id number] [place] [id number] Professio [phone] [facility] 134 Building 2020-04-03 2020-04-03 Office Ad, [facility] [id number] 13:15:01 14:30:02 Visit Sisi Hawkins [id number] [place] [id number] Professio [phone] [facility] 134 [facility] 2018-06-27 2018-06-27 [facility] [id number] [facility] 11:57:00 11:57:00 t [place] [facility] Medicine Outpati ent Clinics 2018-06-15 2018-06-15 [facility] [id number] [facility] [address] 16:24:00 16:24:00 t [place] [facility] l Medicine Outpati ent Clinics 2018-06-13 2018-06-13 [facility] [id number] 13:30:00 13:30:00 t [place] [facility] [address] [facility] l Medicine Outpati ent Clinics 2017-12-12 2017-12-12 [facility] [id number] 13:22:00 13:22:00 t [place] [facility] Medicine l Medicine Outpati ent Clinics 2017-11-20 2017-11-20 [facility] [id number] [address] 10:30:00 10:30:00 t [place] [facility] Medicine Outpati ent Clinics 2017-11-02 2017-11-02 Outpatient Michael Barr [id number] 15:15:00 15:15:00 t [employer] [place] [address] Medicine Medicine Outpati ent Clinics Results This patient has no known results.
--- OUTSIDE RECORDS SUMMARY | 2020-05-06 01:06 | XMS REPORT | Summary of Care ---
:1970 Author Organization [facility] - [facility] Address [address] [place] [address] Care Team Providers Name Role Phone Fabby Meléndez Unavailable Bennie Zavala MD Primary Care Provider Eligio Garsia MD Unavailable Reason for Visit Reason Comments Refill Request Encounter Details Date Type Department Care Team Description 03/09/2020 Refill [facility] Family Medicine Dev Hernandez MD Refill Request - [address] [facility] [place] [address] [place] [address] [phone] Allergies Active Allergy Reactions Severity Noted Date Comments Ketorolac Tromethamine Hives 12/15/2016 Tramadol Hives 12/15/2016 documented as of this encounter (statuses as of 03/11/2020) Medications Medication Sig Dispensed Refills Start End Date Status Date albuterol 90 Inhale 2 1 Inhaler 1 Active mcg/actuation Puffs every 6 9 inhalerIndications: (six) hours Persistent cough, as needed for Tobacco use, Wheezing or Wheezing Shortness of Breath. nitroglycerin 0.4 mg 1 tab SL 25 tablet 0 Active sublingual q5min up to 3 9 tabletIndications: doses PRN H/O right coronary chest pain, artery stent then activate placement 911. isosorbide Take 1 tablet 90 tablet 1 [...] at 0 Coronary artery bedtime. disease involving ute coronary artery of ute heart without angina pectoris metoprolol succinate Take 1 tablet 30 tablet 11 Active XL 100 mg 24 hr by mouth 0 tabletIndications: daily. Coronary artery disease involving ute coronary artery of ute heart without angina pectoris pantoprazole 40 mg [...] by mouth once 0 tabletIndications: daily Hypokalemia FUROSEMIDE 20 mg Take 1 tablet 90 tablet 0 Active tabletIndications: by mouth once 0 Congestive heart daily failure, unspecified HF chronicity, unspecified heart failure type gabapentin 800 mg Take 1 tablet 90 tablet 0 Active tabletIndications: by mouth 3 0 Neuropathy (three) times daily. gabapentin 800 mg Take 1 tablet 90 tablet 0 03/11/20 Discontinued tabletIndications: by mouth 3 0 20 (Reorder) Neuropathy (three) times daily. documented as of this encounter (statuses as of 03/11/2020) Active Problems Problem Noted Date Obesity (BMI 30-39.9) 08/12/2019 Chest pain 08/12/2019 Coronary artery disease involving ute coronary radha ry of ute heart 08/05/2019 without angina pectoris PAD (peripheral artery disease) 08/05/2019 Chronic heart failure with preserved ejection fraction 08/05/2019 GARY (stress urinary incontinence, female) 02/02/2018 Overview: Added automatically from request for tate stone [id number] GERD (gastroesophageal reflux disease) DM (diabetes mellitus) Depression CVA (cerebral vascular accident) CHF (congestive heart failure) Anxiety Angina pectoris H/O right coronary artery stent placement High cholesterol HTN (hypertension) Hx of CABG Migraines Seizures Unilateral AKA, right documented as of this encounter (statuses as of 03/11/2020) Social History Tobacco Use Types Packs/Day Years Used Date Current Every Day Smoker Cigarettes 1 Smokeless Tobacco: Never Used Alcohol Use Drinks/Week oz/Week Comments Yes rare Sex Assigned at Date Recorded Not on file documented as of this encounter Last Filed Vital Signs Not on filedocumented in this encounter Miscellaneous Notes Telephone Encounter - Nichole Zaidi RN - 03/09/2020 3:43 PM CDT Refill request: Requested Prescriptions Pending Prescriptions Disp Refills gabapentin 800 mg tablet 90 tablet 0 Sig: Take 1 tablet by mouth 3 (three) times daily. Last office visit: 08/22/2019 Last refill date: 12/11/2019 ([place]) Routing to Endocrinology for review. elephone Encounter - Ashlyn Perdue - 03/09/2020 1:12 PM CDTPer patient she has been out of medication since Monday. Per patient she tried to call Dr. Flores's office however no one is answering. documented in this encounter Plan of Treatment Date Type Specialty Care Team Description 05/08/2020 Office Visit Endocrinology Diabetes & Malaika pfeiffer, Anatoly Rodriguez MD Metabolism [address] [address] Health Maintenance Due Date Last Done Comments EYE EXAM 1982 URINE MICROALBUMIN 09/01/2019 08/31/2018, 05/19/2017 INFLUENZA VACCINE (#1) 2020 DTaP,Tdap,and Td Vaccines 03/26/2020 Postpo sharon from (1 - Tdap) 1991 (Refu sed) LDL-C 03/26/2020 03/26/2019 PNEUMOCOCCAL 0-64 YEARS 03/26/2020 Postpone d from COMBINED SERIES (1 of - 1977 (Refused) PPSV23) Depression Screening 05/10/2020 05/10/2019 FOOT EXAM 05/10/2020 05/10/2019, 05/10/2019, 01/04/2019, Additional history exists HgA1C 07/12/2020 01/10/2020, 08/13/2019, 05/10/2019, Additional history exists CREATININE (SERUM) 08/15/2020 08/16/2019, 08/15/2019, 08/14/2019, Additional history exists PAP SMEAR 09/25/2020 09/25/2017 Breast Cancer Screening 10/31/2020 11/01/2019, 11/06/2017 (MAMMOGRAM) Colorectal Cancer Screening 2022 documented as of this encounter Results Not on filedocumented in this encounter Visit Diagnoses Diagnosis Neuropathy Mononeuritis of unspecified site documented in this encounter Insurance Payer Benefit Plan / Subscriber ID Effective Dates Phone Addre ss Type Group MEDICARE MEDICARE PART [id number] 2017-Justin [phone] Medicare A & B nt 2 [id number] [place] S[place] [phone] documented as of this encounter
--- OUTSIDE RECORDS SUMMARY | 2020-05-06 01:06 | XMS REPORT | Summary of Care ---
:1970 Author Organization [facility] - [facility] Address [address] [place] [address] Care Team Providers Name Role Phone Fabby Meléndez Unavailable Bennie Zavala MD Primary Care Provider Eligio Garsia MD Unavailable Reason for Visit Reason Comments Assessment Encounter Details Date Type Department Care Team Description 02/17/2020 Telephone [facility] Family Medicine Dev Hernandez MD Assessment - [address] [place] [address] [place] [address] [place] [address] [phone] Allergies Active Allergy Reactions Severity Noted Date Comments Ketorolac Tromethamine Hives 12/15/2016 Tramadol Hives 12/15/2016 documented as of this encounter (statuses as of 02/18/2020) Medications Medication Sig Dispensed Refills Start Date End Date Status albuterol 90 Inhale 2 Puffs 1 Inhaler 1 03/26/2019 A ctive mcg/actuation every 6 (six) inhalerIndications: hours as needed Persistent cough, for Wheezing or Tobacco use, Wheezing Shortness of Breath. nitroglycerin 0.4 mg 1 tab SL q5min 25 tablet 0 03/26/2019 Active sublingual up to 3 doses tabletIndications: H/O PRN chest pain, right coronary artery then activate stent placement 911. isosorbide mononitrate Take 1 tablet by 90 tablet 1 08/05/2019 Active 30 mg 24 hr mouth daily. tabletIndications: H/O right coronary artery stent placement aspirin 81 mg chewable Take 1 tablet by 90 tablet 3 Active tablet mouth daily. clopidogreL (PLAVIX) 75 Take 1 tablet by 30 tablet 11 0 Active mg tabletIndications: mouth daily. H/O right coronary artery stent placement insulin NPH and regular Inject 84 units 6 Vial 3 08/16/2019 Active human 70-30 (NOVOLIN AM, 84 units PM 70/30 U-100 INSULIN) 100 unit/mL (70-30) injectionIndications: Type 2 diabetes mellitus with diabetic peripheral angiopathy without gangrene, with long-term current use of insulin atorvastatin 80 mg Take 1 tablet by 30 tablet 11 08/16/2019 Active tabletIndications: mouth at Coronary artery disease bedtime. involving hopi coronary artery of hopi heart without angina pectoris metoprolol succinate XL Take 1 tablet by 30 tablet 11 0 Active 100 mg 24 hr mouth daily. tabletIndications: Coronary artery disease involving hopi coronary artery of hopi heart without angina pectoris pantoprazole 40 mg EC Take 1 tablet by 30 tablet 2 12/05/2019 Active tabletIndications: mouth daily. Do Gastroesophageal reflux not Crush or disease, esophagitis Chew presence not specified DULOXETINE 30 mg Take 1 capsule 30 capsule 2 12/05/2019 Active capsuleIndications: by mouth once Anxiety and depression, daily Peripheral neuropathic pain metFORMIN 500 mg tablet Take 2 tablets 360 tablet 1 12/05/2019 Active by mouth 2 (two) times daily with meals. POTASSIUM CHLORIDE 10 Take 1 tablet by 30 tablet 2 12/05/2019 Active mEq CR mouth once daily tabletIndications: Hypokalemia gabapentin 800 mg Take 1 tablet by 90 tablet 0 12/11/2019 Active tabletIndications: mouth 3 (three) Neuropathy times daily. FUROSEMIDE 20 mg Take 1 tablet by 90 tablet 0 01/14/2020 Active tabletIndications: mouth once daily Congestive heart failure, unspecified HF chronicity, unspecified heart failure type documented as of this encounter (statuses as of 02/18/2020) Active Problems Problem Noted Date Obesity (BMI 30-39.9) 08/12/2019 Chest pain 08/12/2019 Coronary artery disease involving hopi coronary radha ry of hopi heart 08/05/2019 without angina pectoris PAD (peripheral artery disease) 08/05/2019 Chronic heart failure with preserved ejection fraction 08/05/2019 GARY (stress urinary incontinence, female) 02/02/2018 Overview: Added automatically from request for tate stone [id number] GERD (gastroesophageal reflux disease) DM (diabetes mellitus) Depression CVA (cerebral vascular accident) CHF (congestive heart failure) Anxiety Angina pectoris H/O right coronary artery stent placement High cholesterol HTN (hypertension) Hx of CABG Migraines Seizures Unilateral AKA, right documented as of this encounter (statuses as of 02/18/2020) Social History Tobacco Use Types Packs/Day Years Used Date Current Every Day Smoker Cigarettes 1 Smokeless Tobacco: Never Used Alcohol Use Drinks/Week oz/Week Comments Yes rare Sex Assigned at Date Recorded Not on file documented as of this encounter Last Filed Vital Signs Not on filedocumented in this encounter Miscellaneous Notes Telephone Encounter - Charlene Vasquez - 02/17/2020 3:30 PM CDTSpecialty medical Equipment sent request for glucose monitor placed in nurse box documented in this encounter Plan of Treatment Date Type Specialty Care Team Description 05/08/2020 Office Visit Endocrinology Diabetes & Anatoly Chapin MD Metabolism [address] [address] [phone] Health Maintenance Due Date Last Done Comments [...] Addre ss Type Group MEDICARE MEDICARE PART [id number] 2017-Justin [phone] [address] Medicare A & B nt 2 [id number] [place] S[place]TON [phone] documented as of this encounter
--- OUTSIDE RECORDS SUMMARY | 2020-05-06 01:06 | XMS REPORT | Summary of Care ---
:1970 Author Organization [facility] - [facility] Address [address] [place] [address] Care Team Providers Name Role Phone Fabby Meléndez Unavailable Bennie Zavala MD Primary Care Provider Eilgio Garsia MD Unavailable Reason for Visit Reason Comments Rx Concern/Question Encounter Details Date Type Department Care Team Description 02/17/2020 Telephone [facility] [place] [facility] Family Dev Zavala R x Concern/Question Medicine - Shruthi BROWN [address] [place] [address] Dr ed[address] [place] [address] [place] [address] [place], [place] [phone] Allergies Active Allergy Reactions Severity Noted Date Comments Ketorolac Tromethamine Hives 12/15/2016 Tramadol Hives 12/15/2016 documented as of this encounter (statuses as of 02/17/2020) Medications Medication Sig Dispensed Refills Start Date [...] mouth at Coronary artery disease bedtime. involving [place]ni' coronary artery of [place] de[place]-ni' heart without angina pectoris metoprolol succinate XL Take 1 tablet by 30 tablet 11 0 Active 100 mg 24 hr mouth daily. tabletIndications: Coronary artery disease involving [place] dee-ni' coronary artery of [place] de[place]-ni' heart without angina pectoris pantoprazole 40 mg [...] as of this encounter (statuses as of 02/17/2020) Active Problems Problem Noted Date Obesity (BMI 30-39.9) 08/12/2019 Chest pain 08/12/2019 Coronary artery disease involving [place] dee-ni' coronary radha ry of [place] de[place]-ni' heart 08/05/2019 without angina pectoris PAD (peripheral artery disease) 08/05/2019 Chronic heart failure with preserved ejection fraction 08/05/2019 GARY (stress urinary incontinence, female) 02/02/2018 Overview: Added automatically from request for tate stone [id number] GERD (gastroesophageal reflux disease) DM (diabetes mellitus) Depression CVA (cerebral vascular accident) CHF (congestive heart failure) Anxiety Angina pectoris H/O right coronary artery stent placement High cholesterol HTN (hypertension) Hx of CABG Migraines Seizures Unilateral AKA, right documented as of this encounter (statuses as of 02/17/2020) Social History Tobacco Use Types Packs/Day Years Used Date Current Every Day Smoker Cigarettes 1 Smokeless Tobacco: Never Used Alcohol Use Drinks/Week oz/Week Comments Yes rare Sex Assigned at Date Recorded Not on file documented as of this encounter Last Filed Vital Signs Not on filedocumented in this encounter Miscellaneous Notes Telephone Encounter - Gricel Ahumada - 02/17/2020 1:43 PM CDTWe have not received this information and 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 Medicare A & B 2 [id number] [place] S[place] [phone] documented as of this encounter
--- OUTSIDE RECORDS SUMMARY | 2020-05-06 01:07 | XMS REPORT | Summary of Care ---
:1970 Author Organization [facility] - [facility] Address [address] [place] [address] Care Team Providers Name Role Phone Fabby Meléndez Unavailable Bennie Zavaal MD Primary Care Provider Eligio Garsia MD Unavailable Reason for Visit Reason Comments Assessment Encounter Details Date Type Department Care Team Description 04/01/2020 Telephone [facility] Women's Serena Garsia MD Assessment Healthcare- [address] [address] [address] [place] [address] [place] [address] [phone] Allergies Active Allergy Reactions Severity Noted Date Comments Ketorolac Tromethamine Hives 12/15/2016 Tramadol Hives 12/15/2016 documented as of this encounter (statuses as of 04/01/2020) Medications Medication Sig Dispensed Refills Start Date [...] mouth at Coronary artery disease bedtime. involving [place] coronary artery of [place] heart without angina pectoris metoprolol succinate XL Take 1 tablet by 30 tablet 11 0 Active 100 mg 24 hr mouth daily. tabletIndications: Coronary artery disease involving [place] coronary artery of [place] heart without angina pectoris DULOXETINE 30 mg Take 1 capsule 30 capsule 2 12/05/2019 Active capsuleIndications: by mouth once Anxiety and depression, daily Peripheral neuropathic pain metFORMIN 500 mg tablet Take 2 tablets 360 tablet 1 12/05/2019 Active by mouth 2 (two) times daily with meals. FUROSEMIDE 20 mg Take 1 tablet by 90 tablet 0 01/14/2020 Active tabletIndications: mouth once daily Congestive heart failure, unspecified HF chronicity, unspecified heart failure type gabapentin 800 mg Take 1 tablet by 90 tablet 0 03/11/2020 Active tabletIndications: mouth 3 (three) Neuropathy times daily. PANTOPRAZOLE 40 mg EC TAKE 1 TABLET BY 30 tablet 0 03/20/2020 Active tabletIndications: MOUTH ONCE DAILY Gastroesophageal reflux DO NOT CRUSH disease OR CHEW POTASSIUM CHLORIDE 10 Take 1 tablet by 30 tablet 0 03/20/2020 Active mEq CR mouth once daily tabletIndications: Hypokalemia documented as of this encounter (statuses as of 04/01/2020) Active Problems Problem Noted Date Obesity (BMI 30-39.9) 08/12/2019 Chest pain 08/12/2019 Coronary artery disease involving [place] coronary radha ry of [place] heart 08/05/2019 without angina pectoris PAD (peripheral artery disease) 08/05/2019 Chronic heart failure with preserved ejection fraction 08/05/2019 GARY (stress urinary incontinence, female) 02/02/2018 Overview: Added automatically from request for tate stone [id number] GERD (gastroesophageal reflux disease) DM (diabetes mellitus) Depression CVA (cerebral vascular accident) CHF (congestive heart failure) Anxiety Angina pectoris H/O right coronary artery stent placement High cholesterol HTN (hypertension) Hx of CABG Migraines Seizures Unilateral AKA, right documented as of this encounter (statuses as of 04/01/2020) Social History Tobacco Use Types Packs/Day Years Used Date Current Every Day Smoker Cigarettes 1 Smokeless Tobacco: Never Used Alcohol Use Drinks/Week oz/Week Comments Yes rare Sex Assigned at Date Recorded Not on file documented as of this encounter Last Filed Vital Signs Not on filedocumented in this encounter Miscellaneous Notes Telephone Encounter - Bambi Cook MA - 04/01/2020 11:36 AM CSTS/w patient and identified her name and , patient states she is having vaginal odor and discomfort. Patient stated she has gone through two tubes of Vagisil and feels no relief. Informed patient that she will need an office visit for evaluation to treat her symptoms. Patient verbalized understanding. Call transferred to [facility] for an appointment. Bambi Cook MA 04/01/2020 11:38 AM [employer] PROFESSION[employer] Telephone Encounter - Pretty Edmond - 04/01/2020 11:22 AM CSTPatient is requesting a refill on some creams Dr Garsia prescribed for a yeast infection. Please advise [employer] documented in this encounter Plan of Treatment Date Type Specialty Care Team Description 05/08/2020 Office Visit Endocrinology Diabetes & Anatoly Chapin MD Metabolism [address] [address] [phone] Health Maintenance Due Date Last Done Comments PNEUMOCOCCAL 0-64 YEARS COMBINED 1978 SERIES (1 of 1 - PPSV23) EYE EXAM 1982 DTaP,Tdap,and Td Vaccines (1 - 1991 Tdap) URINE MICROALBUMIN 09/01/2019 08/31/2018, 05/19/2017 INFLUENZA VACCINE (#1) 2020 LDL-C 03/26/2020 03/26/2019 Depression Screening 05/10/2020 05/10/2019 FOOT EXAM 05/10/2020 [...] Addre ss Type Group MEDICARE MEDICARE PART [id number] 2017-Justin [phone] [address] Medicare A & B 2 [id number] [place] [phone] documented as of this encounter
--- OUTSIDE RECORDS SUMMARY | 2020-05-06 01:07 | XMS REPORT | Summary of Care ---
:1970 Author Organization [facility] Address [address] [place] [address] Care Team Providers Name Role Phone Fabby Meléndez Unavailable Bennie Zavala MD Primary Care Provider Eligio Garsia MD Unavailable Reason for Visit Reason Comments Refill Request Encounter Details Date Type Department Care Team Description 03/20/2020 Refill [facility] Family Medicine Dev Hernandez MD Refill Request - [address] [facility] [place] [address] [place] [address] [phone] Allergies Active Allergy Reactions Severity Noted Date Comments Ketorolac Tromethamine Hives 12/15/2016 Tramadol Hives 12/15/2016 documented as of this encounter (statuses as of 03/20/2020) Medications Medication Sig Dispensed Refills Start Date End Date Status albuterol 90 Inhale 2 Puffs 1 Inhaler 1 03/26/2019 A ctive mcg/actuation every 6 (six) inhalerIndications: hours as Persistent cough, needed for Tobacco use, Wheezing Wheezing or Shortness of Breath. nitroglycerin 0.4 mg 1 tab SL q5min 25 tablet 0 03/26/2019 Active sublingual up to 3 doses tabletIndications: PRN chest H/O right coronary pain, then artery stent activate 911. placement isosorbide Take 1 tablet 90 tablet 1 08/05/2019 Acti ve mononitrate 30 mg 24 by mouth hr tabletIndications: daily. H/O right coronary artery stent placement aspirin 81 mg Take 1 tablet 90 tablet 3 Ac tive chewable tablet by mouth daily. clopidogreL (PLAVIX) Take 1 tablet 30 tablet 11 08/16/2019 Active 75 mg by mouth tabletIndications: daily. H/O right coronary artery stent placement insulin NPH and Inject 84 6 Vial 3 08/16/2019 Act mayito regular human 70-30 units AM, 84 (NOVOLIN 70/30 U-100 units PM INSULIN) 100 unit/mL (70-30) injectionIndications: Type 2 diabetes mellitus with diabetic peripheral angiopathy without gangrene, with long-term current use of insulin atorvastatin 80 mg Take 1 tablet 30 tablet 11 08/16/2019 Active tabletIndications: by mouth at Coronary artery bedtime. disease involving [place] coronary artery of [place] heart without angina pectoris metoprolol succinate Take 1 tablet 30 tablet 11 08/17/2019 Active XL 100 mg 24 hr by mouth tabletIndications: daily. Coronary artery disease involving [place] coronary artery of [place] heart without angina pectoris DULOXETINE 30 mg Take 1 capsule 30 capsule 2 12/05/2019 Active capsuleIndications: by mouth once Anxiety and daily depression, Peripheral neuropathic pain metFORMIN 500 mg Take 2 tablets 360 tablet 1 12/05/2019 Active tablet by mouth 2 (two) times daily with meals. FUROSEMIDE 20 mg Take 1 tablet 90 tablet 0 01/14/2020 Active tabletIndications: by mouth once Congestive heart daily failure, unspecified HF chronicity, unspecified heart failure type gabapentin 800 mg Take 1 tablet 90 tablet 0 03/11/2020 Active tabletIndications: by mouth 3 Neuropathy (three) times daily. PANTOPRAZOLE 40 mg EC TAKE 1 TABLET 30 tablet 0 03/20/2020 Active tabletIndications: BY MOUTH ONCE Gastroesophageal DAILY DO NOT reflux disease CRUSH OR CHEW POTASSIUM CHLORIDE 10 Take 1 tablet 30 tablet 0 03/20/2020 Active mEq CR by mouth once tabletIndications: daily Hypokalemia pantoprazole 40 mg EC Take 1 tablet 30 tablet 2 12/05/2019 Discontinued tabletIndications: by mouth 20 Gastroesophageal daily. Do not reflux disease, Crush or Chew esophagitis presence not specified POTASSIUM CHLORIDE 10 Take 1 tablet 30 tablet 2 12/05/2019 Discontinued mEq CR by mouth once 20 tabletIndications: daily Hypokalemia documented as of this encounter (statuses as of 03/20/2020) Active Problems Problem Noted Date Obesity (BMI 30-39.9) 08/12/2019 Chest pain 08/12/2019 Coronary artery disease involving [place] coronary radha ry of [place] heart 08/05/2019 without angina pectoris PAD (peripheral artery disease) 08/05/2019 Chronic heart failure with preserved ejection fraction 08/05/2019 GARY (stress urinary incontinence, female) 02/02/2018 Overview: Added automatically from request for tate stone [id number] GERD (gastroesophageal reflux disease) DM (diabetes mellitus) Depression CVA (cerebral vascular accident) CHF (congestive heart failure) Anxiety Angina pectoris H/O right coronary artery stent placement High cholesterol HTN (hypertension) Hx of CABG Migraines Seizures Unilateral AKA, right documented as of this encounter (statuses as of 03/20/2020) Social History Tobacco Use Types Packs/Day Years [...] Endocrinology Diabetes & Anatoly Chapin MD Metabolism [address] [place] [address] [phone] Health Maintenance Due Date Last Done Comments [...] this encounter Visit Diagnoses Diagnosis Gastroesophageal reflux disease Esophageal reflux Hypokalemia Hypopotassemia documented in this encounter Insurance Payer Benefit Plan / Subscriber ID Effective Dates Phone Addre ss Type Group MEDICARE MEDICARE PART [id number] 2017-Justin [phone] [facility] [address] Medicare A & B nt 2 [id number] [place]VAR[place]O S[place]TON [phone] documented as of this encounter
--- OUTSIDE RECORDS SUMMARY | 2020-05-06 01:08 | XMS REPORT | Summary of Care ---
:1970 Author Organization [facility] Address [address] [place] [address] Care Team Providers Name Role Phone Fabby Meléndez Unavailable Bennie Zavala MD Primary Care Provider Eligio Garsia MD Unavailable Reason for Visit Reason Comments VAGINAL ODOR Vaginal Discharge Encounter Details Date Type Department Care Team Description 04/03/2020 Office Visit [facility] Women's AdumSisi MD Vulvovaginitis (Primary Dx); Healthcare- [address] UTI symptoms [address] [place] [address] [address], [address] [place] [phone] Allergies Active Allergy Reactions Severity Noted Date Comments Ketorolac Tromethamine Hives 12/15/2016 Tramadol Hives 12/15/2016 documented as of this encounter (statuses as of 04/03/2020) Medications Medication Sig Dispensed Refills Start Date [...] placement 911. isosorbide mononitrate Take 1 tablet 90 tablet [...] mouth at Coronary artery disease bedtime. involving [place] coronary artery of [place] heart without angina pectoris metoprolol succinate XL Take 1 tablet 30 tablet 11 08/17/2019 Active 100 mg 24 hr by mouth daily. tabletIndications: Coronary artery disease involving [place] coronary artery of [place] heart without angina pectoris DULOXETINE 30 mg [...] 03/20/2020 Active tabletIndications: BY MOUTH ONCE Gastroesophageal reflux DAILY DO NOT disease CRUSH OR CHEW POTASSIUM CHLORIDE 10 Take 1 tablet 30 tablet 0 03/20/2020 Active mEq CR by mouth once tabletIndications: daily Hypokalemia fluconazole 150 mg Take 1 tablet 2 tablet 0 04/03/20202019 Active tabletIndications: by mouth every Vulvovaginitis 72 (seventy-two) hours for 2 doses. Take one tab now and a second dose in 72 hours metroNIDAZOLE 500 mg Take 1 tablet 14 tablet 0 04/03/2020 Active tabletIndications: by mouth every Vulvovaginitis 12 (twelve) hours. clotrimazole-betamethas Apply to 15 g 0 04/03/2020 Active one creamIndications: area(s) 2 (two) Vulvovaginitis times daily. Use for 2 weeks on affected area documented as of this encounter (statuses as of 04/03/2020) Active Problems Problem Noted Date Obesity (BMI 30-39.9) 08/12/2019 Chest pain 08/12/2019 Coronary artery disease involving [place] coronary radha ry of [place] heart 08/05/2019 without angina pectoris PAD (peripheral artery disease) 08/05/2019 Chronic heart failure with preserved ejection fraction 08/05/2019 GARY (stress urinary incontinence, female) 02/02/2018 Overview: Added automatically from request for tate stone [id number] GERD (gastroesophageal reflux disease) DM (diabetes mellitus) Depression CVA (cerebral vascular accident) CHF (congestive heart failure) Anxiety Angina pectoris H/O right coronary artery stent placement High cholesterol HTN (hypertension) Hx of CABG Migraines Seizures Unilateral AKA, right documented as of this encounter (statuses as of 04/03/2020) Social History Tobacco Use Types Packs/Day Years Used Date Current Every Day Smoker Cigarettes 1 Smokeless Tobacco: Never Used Comments: smoking since 14 years old Alcohol Use Drinks/Week oz/Week Comments Yes rare Sex Assigned at Date Recorded Not on file COVID-19 Exposure Response Date Recorded In the last month, have you been in contact with No / Unsure 04/03/2020 1:13 PM TRADE FACILITATOR someone who was confirmed or 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 documented as of this encounter Last Filed Vital Signs Vital Sign Reading Time Taken Comments Blood Pressure 104/66 04/03/2020 1:48 PM TRADE FACILITATOR Pulse 81 04/03/2020 1:48 PM TRADE FACILITATOR Temperature 36.7 C (98.1 F) 04/03/2020 1:48 PM TRADE FACILITATOR Respiratory Rate 18 04/03/2020 1:48 PM TRADE FACILITATOR Oxygen Saturation - - Inhaled Oxygen Concentration - - Weight 69.4 kg (153 lb) 04/03/2020 1:48 PM TRADE FACILITATOR Height 162.6 cm (5' 4") 04/03/2020 1:48 PM TRADE FACILITATOR Body Mass Index 26.26 04/03/2020 1:48 PM TRADE FACILITATOR documented in this encounter Progress Notes Sisi Salinas MD - 04/03/2020 1:30 PM CST Chief complaint: Chief Complaint Patient presents with VAGINAL ODOR Vaginal Discharge Karen Shah is a 49 year-old lady known to have poorly controlled diabetes who presents with worsening vulva/vaginal itching, foul smelling vaginal discharge and a vulva/groin rash. These symptomshave ongoing for over 2 weeks with no relief using OTC medication. Her most recent HgbA1c in December was over 14. She is also c/o burning with urination- denies increased frequency of urination, suprapubic or renalpain Histories OB History Para Term AB Living 2 2 0 2 0 2 SAB TAB Ectopic Multiple Live Births 0 0 0 0 2 # Outcome Date GA Lbr Guillermo/2nd Weight Sex Delivery Anes PTL Lv 2 1 Obstetric Comments 3.4 3.2 Past Medical History: Diagnosis Date Angina pectoris Anxiety CHF (congestive heart failure) Coronary artery disease involving [place] coronary artery of [place] heart without angina pectoris08/05/2019 CVA (cerebral vascular [...] SECTION X 2 EYE SURGERY attached retina OR ANESTH,OPEN HEART SURGERY+PUMP X 2 TUBAL LIGATION Social History Socioeconomic History Marital status: Spouse name: Not on file Number of children: Not on file Years of education: Not on file Highest education level: Not on file Occupational History Comment: Disabled / Amput Social Needs Financial resource strain: Not on file Food insecurity Worry: Not on file Inability: Not on file Transportation needs Medical: Not on file Non-medical: Not on file Tobacco Use Smoking status: Current Every Day Smoker Packs/day: 1.00 Types: Cigarettes Smokeless tobacco: Never Used Tobacco comment: smoking since 14 years old Substance and Sexual Activity Alcohol use: Yes Comment: rare Drug use: Never Sexual activity: Yes Partners: Male control/protection: Surgical Lifestyle Physical activity Days per week: Not on file Minutes per session: Not on file Stress: Not on file Relationships Social connections Talks on phone: Not on file Gets together: Not on file Attends yazdanism service: Not on file Active member of club or organization: Not on file Attends meetings of clubs or organizations: Not on file Relationship status: Not on file Intimate partner violence Fear of current or ex partner: Not on file Emotionally abused: Not on file Physically abused: Not on file Forced sexual activity: Not on file Other Topics Concern Not on file Social History Narrative No domestic abuse or violence. Faith Preference ; none Social History Substance and Sexual Activity Sexual Activity Yes Partners: Male control/protection: Surgical Labs No new labs Radiology No new radiology. Allergies Karen is allergic to toradol [ketorolac tromethamine] and tramadol. Medications Karen has a current medication list which includes the following prescription(s): clotrimazole-betamethasone, fluconazole, metronidazole, metformin, pantoprazole, potassium chloride, gabapentin, furosemide, duloxetine, aspirin, atorvastatin, clopidogrel, insulin nph and regular human 70-30, metoprolol succinate xl, isosorbide mononitrate, albuterol, and nitroglycerin. Review of Systems Constitutional: Negative. Respiratory: Negative. Cardiovascular: Negative. Gastrointestinal: Negative. Genitourinary: Positive for dysuria, vaginal discharge, genital sores and vaginal pain. BP 104/66 (BP Location: Left arm, Patient Position: Sitting, BP CUFF SIZE: Adult Medium) | Pulse 81 | Temp 36.7 C (98.1 F) (Oral) | Resp 18 | Ht 5' 4" (1.626 m) | Wt 153 lb (69.4 kg) | BMI 26.26 kg/m Pregravid BMI: Could not be calculated Physical Exam Vitals reviewed. Constitutional: She is oriented to person, place, and time. She appears well- developed and well-groomed. Neuro/Psychiatric: She has a normal mood and affect. She is oriented to person, place, and time. External genitalia: Extensive vulva erythema extending to the perianal region and the left groin. Patches of greenish discharge attached to the labia. See attached images Vagina:No lesion inspected. Vaginal discharge (moderate amount of betsy creamy discharge- foul smelling) found. No lesions in the vagina. Cervix: No lesion. No tenderness and no discharge present. Uterus: Normal uterus Adnexa: Right adnexa without tenderness or mass. Left adnexa without tenderness or mass. Assessment/Plan Vulvovaginitis (primary encounter diagnosis) Comment: Clinical finding consistent with fungal vulvovaginitis and BV. Will start treatment for these and also give topical preps. Reviewed perineal hygiene with patient. Also discussed the effect of glycemic control on vaginal infections Plan: [facility] ONLY - VAGINAL PATHOGENS BY NUCLEIC ACID TESTING, GC & CHLAMYDIA AMPLIFIED ASSAY, TRICHOMONAS AMPLIFIED ASSAY, fluconazole 150 mg tablet, metroNIDAZOLE 500 mg tablet, clotrimazole-betamethasone cream UTI symptoms Comment: UA was positive for glucose only so sent off for culture. Plan: POCT URINALYSIS W/O SPECIFIC GRAVITY, URINE CULTURE, URINE CULTURE Follow up in 2 weeks- televisit This visit did not involve counseling and coordination that comprised more than 50% of the visit time. Sisi Salinas MD documented in this encounter Plan of Treatment Date Type Specialty Care Team Description 04/17/2020 Telemedicine Visit Obstetrics & Gynecology Sisi Salinas MD [address] [facility] [address] [place] [phone] 05/01/2020 Office Visit Family Medicine Dev Zavala MD [address] [place] [phone] 05/08/2020 Office Visit Endocrinology Diabetes & Anatoly Flores, Metabolism [address] [phone] Name Type Priority Associated Diagnoses Order S chedule URINE CULTURE LAB Routine UTI symptoms Expected: 10/2019, Expires: 2020 [facility] ONLY - VAGINAL LAB Routine Vulvovaginitis Ordere d: 04/03/2020 PATHOGENS BY NUCLEIC ACID TESTING GC & CHLAMYDIA AMPLIFIED LAB Routine Vulvovaginitis O rdered: 04/03/2020 ASSAY TRICHOMONAS AMPLIFIED ASSAY LAB Routine Vulvovaginiti s Ordered: 04/03/2020 Health Maintenance Due Date Last Done Comments PNEUMOCOCCAL 0-64 YEARS COMBINED 1978 SERIES (1 of - PPSV23) EYE EXAM 1982 DTaP,Tdap,and Td Vaccines ( - 1991 Tdap) URINE MICROALBUMIN 09/01/2019 08/31/2018, [...] Screening 2022 documented as of this encounter Procedures Procedure Name Priority Date/Time Associated Diagnosis Comme nts POCT URINALYSIS W/O Routine 04/03/2020 UTI symptoms Results for this SPECIFIC GRAVITY procedure a re in the results section . documented in this encounter Results POCT URINALYSIS W/O SPECIFIC GRAVITY (04/03/2020) Pathologist Sig nature POCT PH U 5 5 - 8 mg/dl POCT U LEUK EST ++ Negative - Negative POCT U NIT neg Negative - Negative POCT U PROT trace Negative - Negative POCT U GLU 1,000 Negative - Negative POCT U KETONE neg Negative - Negative POCT U BLD neg Negative - Negative Specimen Urine - URINE, CLEAN CATCH documented in this encounter Visit Diagnoses Diagnosis Vulvovaginitis - Primary Vaginitis and vulvovaginitis, unspecifie d UTI symptoms documented in this encounter Insurance Payer Benefit Plan / Subscriber ID Effective Dates Phone Addre ss Type Group MEDICARE MEDICARE PART [id number] 2017-Justin [phone] [address] Medicare A & B 2 [id number] [place] [address] 10 1 Trevin pfeiffer ([place]) [address] 37 1 documented as of this encounter
--- OUTSIDE RECORDS SUMMARY | 2020-05-06 01:08 | XMS REPORT | Summary of Care ---
:1970 Author Organization [facility] Address [address] [place] [address] Care Team Providers Name Role Phone Fabby Meléndez Unavailable Bennie Zavala MD Primary Care Provider Eligio Garsia MD Unavailable Reason for Visit Reason Comments VAGINAL ODOR Vaginal Discharge Encounter Details Date Type Department Care Team Description 04/03/2020 Office Visit [facility] Women's AdumSisi MD Vulvovaginitis (Primary Dx); Healthcare- [address] UTI symptoms [address] [place] [address] [address], [address] [place] [phone] Allergies Active Allergy Reactions Severity Noted Date [...] mouth at Coronary artery disease bedtime. involving [place] coronary artery of [place] heart without angina pectoris metoprolol succinate XL Take 1 tablet 30 tablet 11 08/17/2019 Active 100 mg 24 hr by mouth daily. tabletIndications: Coronary artery disease involving [place] coronary artery of [place] heart without angina pectoris DULOXETINE 30 mg [...] Chest pain 08/12/2019 Coronary artery disease involving [place] coronary radha ry of [place] heart 08/05/2019 without angina pectoris PAD (peripheral artery disease) 08/05/2019 Chronic heart failure with preserved ejection fraction 08/05/2019 GARY (stress urinary incontinence, female) 02/02/2018 Overview: Added automatically from request for tate stone [id number] GERD (gastroesophageal reflux disease) DM (diabetes mellitus) [...] with No / Unsure 04/03/2020 1:13 PM TEXTILE MACHINERY SALES REPRESENTATIVE someone who was confirmed or 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 documented as of this encounter Last Filed Vital Signs Vital Sign Reading Time Taken Comments Blood Pressure 104/66 04/03/2020 1:48 PM TEXTILE MACHINERY SALES REPRESENTATIVE Pulse 81 04/03/2020 1:48 PM TEXTILE MACHINERY SALES REPRESENTATIVE Temperature 36.7 C (98.1 F) 04/03/2020 1:48 PM TEXTILE MACHINERY SALES REPRESENTATIVE Respiratory Rate 18 04/03/2020 1:48 PM TEXTILE MACHINERY SALES REPRESENTATIVE Oxygen Saturation - - Inhaled Oxygen Concentration - - Weight 69.4 kg (153 lb) 04/03/2020 1:48 PM TEXTILE MACHINERY SALES REPRESENTATIVE Height 162.6 cm (5' 4") 04/03/2020 1:48 PM TEXTILE MACHINERY SALES REPRESENTATIVE Body Mass Index 26.26 04/03/2020 1:48 PM TEXTILE MACHINERY SALES REPRESENTATIVE documented in this encounter Progress Notes Sisi [...] (congestive heart failure) Coronary artery disease involving [place] coronary artery of [place] heart without angina pectoris08/05/2019 CVA (cerebral vascular [...] SECTION X 2 EYE SURGERY attached retina [place] ANESTH,OPEN HEART SURGERY+PUMP X 2 TUBAL LIGATION [...] file Gets together: Not on file Attends latter-day service: Not on file Active member of [...] History Narrative No domestic abuse or violence. Lutheran Preference ; none Social History Substance and [...] Obstetrics & Gynecology Sisi Salinas MD [address] [facility] [address] [place] [phone] 05/01/2020 Office Visit Family Medicine Dev Zavala MD [address] [place] [phone] 05/08/2020 Office Visit Endocrinology Diabetes & Anatoly Flores, Metabolism [address] [phone] Name Type Priority Associated Diagnoses Order S [...] Addre ss Type Group MEDICARE MEDICARE PART [id number] 2017-Justin [phone] [address] Medicare A & B 2 [id number] [place] [address] 10 1 Trevin pfeiffer ([place]) [address] 26 1 documented as of this encounter
--- OUTSIDE RECORDS SUMMARY | 2020-05-06 01:09 | XMS REPORT | Summary of Care ---
:1970 Author Organization [facility] - [facility] Address [address] [place] [address] Care Team Providers Name Role Phone Fabby Meléndez Unavailable Bennie Zavala MD Primary Care Provider Eligio Garsia MD Unavailable Reason for Visit Reason Comments VAGINAL ODOR Vaginal Discharge Encounter Details Date Type Department Care Team Description 04/03/2020 Office Visit [facility] Women's AdumSisi MD Vulvovaginitis (Primary Dx); Healthcare- [address] UTI symptoms [address] [place] [address] [address], [address] [place] [phone] Allergies Active Allergy Reactions Severity Noted Date Comments Ketorolac Tromethamine Hives 12/15/2016 Tramadol Hives 12/15/2016 documented as of this encounter (statuses as of 04/07/2020) Medications Medication Sig Dispensed Refills Start Date [...] mouth at Coronary artery disease bedtime. involving [place] coronary artery of [place] heart without angina pectoris metoprolol succinate XL Take 1 tablet 30 tablet 11 08/17/2019 Active 100 mg 24 hr by mouth daily. tabletIndications: Coronary artery disease involving [place] coronary artery of [place] heart without angina pectoris DULOXETINE 30 mg [...] Use for 2 weeks on affected area sulfamethoxazole-trimet Take 1 tablet 14 tablet 0 04/07/2020 1 06/14/2019 Active hoprim (BACTRIM DS) by mouth 2 800-160 mg per tablet (two) times daily for 7 days. documented as of this encounter (statuses as of 04/07/2020) Active Problems Problem Noted Date Obesity (BMI 30-39.9) 08/12/2019 Chest pain 08/12/2019 Coronary artery disease involving [place] coronary radha ry of [place] heart 08/05/2019 without angina pectoris PAD (peripheral artery disease) 08/05/2019 Chronic heart failure with preserved ejection fraction 08/05/2019 GARY (stress urinary incontinence, female) 02/02/2018 Overview: Added automatically from request for tate bertha [id number] GERD (gastroesophageal reflux disease) DM (diabetes mellitus) Depression CVA (cerebral vascular accident) CHF (congestive heart failure) Anxiety Angina pectoris H/O right coronary artery stent placement High cholesterol HTN (hypertension) Hx of CABG Migraines Seizures Unilateral AKA, right documented as of this encounter (statuses as of 04/07/2020) Social History Tobacco Use Types Packs/Day Years Used Date Current Every Day Smoker Cigarettes 1 Smokeless Tobacco: Never Used Comments: smoking since 14 years old Alcohol Use Drinks/Week oz/Week Comments Yes rare Sex Assigned at Date Recorded Not on file COVID-19 Exposure Response Date Recorded In the last month, have you been in contact with No / Unsure 04/03/2020 1:13 PM RN PALLIATIVE someone who was confirmed or 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 documented as of this encounter Last Filed Vital Signs Vital Sign Reading Time Taken Comments Blood Pressure 104/66 04/03/2020 1:48 PM RN PALLIATIVE Pulse 81 04/03/2020 1:48 PM RN PALLIATIVE Temperature 36.7 C (98.1 F) 04/03/2020 1:48 PM RN PALLIATIVE Respiratory Rate 18 04/03/2020 1:48 PM RN PALLIATIVE Oxygen Saturation - - Inhaled Oxygen Concentration - - Weight 69.4 kg (153 lb) 04/03/2020 1:48 PM RN PALLIATIVE Height 162.6 cm (5' 4") 04/03/2020 1:48 PM RN PALLIATIVE Body Mass Index 26.26 04/03/2020 1:48 PM RN PALLIATIVE documented in this encounter Progress Notes Sisi [...] (congestive heart failure) Coronary artery disease involving [place] coronary artery of [place] heart without angina pectoris08/05/2019 CVA (cerebral vascular [...] SECTION X 2 EYE SURGERY attached retina IA ANESTH,OPEN HEART SURGERY+PUMP X 2 TUBAL LIGATION [...] file Gets together: Not on file Attends restorationist service: Not on file Active member of [...] History Narrative No domestic abuse or violence. Shinto Preference ; none Social History Substance and [...] Sisi Salinas MD documented in this encounter Miscellaneous Notes Addendum Note - Bambi Ríos MA - 04/03/2020 1:30 PM RN PALLIATIVE Addended by: BAMBI RÍOS on: 04/07/2020 04:59 PM Modules accepted: Orders PALLIATIVE documented in this encounter Plan of Treatment Date Type Specialty Care Team Description 04/17/2020 Telemedicine Visit Obstetrics & Gynecology Sisi Salinas MD [address] [facility] [address] [place] [phone] 05/01/2020 Office Visit Family Medicine Dev Zavala MD [address] [place] [phone] 05/08/2020 Office Visit Endocrinology Diabetes & Anatoly Flores, Metabolism [address] [facility] [address] [place], [place] [address] Health Maintenance Due Date Last Done [...] Name Priority Date/Time Associated Diagnosis Comme nts TRICHOMONAS Routine 04/03/2020 2:18 Vulvovaginitis Results f or this AMPLIFIED ASSAY PM RN PALLIATIVE procedure ar e in the results section. GALV ONLY - VAGINAL Routine 04/03/2020 2:18 Vulvovaginitis Re sults for this PATHOGENS BY NUCLEIC PM RN PALLIATIVE procedu re are in ACID TESTING the results section. GC & CHLAMYDIA Routine 04/03/2020 2:18 Vulvovaginitis Results for this AMPLIFIED ASSAY PM RN PALLIATIVE procedure ar e in the results section. URINE CULTURE Routine 04/03/2020 2:18 UTI symptoms Results fo r this PM RN PALLIATIVE procedure are i n the results section. POCT URINALYSIS W/O Routine 04/03/2020 UTI symptoms Results for this SPECIFIC GRAVITY procedure a re in the results section. documented in this encounter Results TRICHOMONAS AMPLIFIED ASSAY (04/03/2020 2:18 PM RN PALLIATIVE) Pathologist Sig nature Trichomonas Nucleic Negative Negative [facility] Acid SERVICES Specimen Swab - CERVIX Narrative Performed At Reliable results are dependent on adequate specimen [facility] SERVICES collection. A positive result obtained from a patient after therap eutic treatment cannot be interpreted as indicating the pres ence of viable organisms. For patients on whom a false po sitive result may have adverse psychosocial impact, retesting is advised. Indeterminate: Unable to generate a valid test result on this specimen. Please submit a new specimen for repe at testing if clinically indicated. Trichomonas nucleic acid amplification testing (NAAT) has not been validated for medico-legal specimens (sexual abuse in anh-pubertal and pre-pubertal children, sexual ass renee, and legal cases). Wet mount with microscopic observa tion and culture for Trichomonas vaginalis from clinically appropriate sites are the methods of cho ice in these cases. Results from this testing should be interpreted in conjunction with other laboratory and clinical data available to the clinician. Performing Organization Address City/State/Zipcode Phone Number [facility] CLIA: [id number] [place] [address] [place] [address] GC & CHLAMYDIA AMPLIFIED ASSAY (04/03/2020 2:18 PM RN PALLIATIVE) Pathologist Sig nature C. trachomatis Nucleic Negative Negative [facility] Acid SERVICES N. gonorrhoeae Nucleic Negative Negative [facility] Acid SERVICES Specimen Swab - CERVIX Narrative Performed At Reliable results are dependent on adequate specimen [facility] SERVICES collection. A positive result obtained from a patient after therap eutic treatment cannot be interpreted as indicating the pres ence of viable organisms. For patients on whom a false po sitive result may have adverse psychosocial impact, retesting is advised. Indeterminate: Unable to generate a valid test result on this specimen. Please submit a new specimen for repe at testing if clinically indicated. Chlamydia trachomatis/Neisseria gonorrhoeae nucleic ac id amplification testing (NAAT) has not been validated fo r medico-legal specimens (sexual abuse in anh-pubertal and pre-pubertal children, sexual assault, and legal cases ). Culture for Chlamydia trachomatis and/or Neisseria gonorrhoeae from clinically appropriate sites is the m ethod of choice in these cases. Results from this testing should be interpreted in conjunction with other laboratory and clinical data available to the clinician. Performing Organization Address City/[facility] Phone Number [facility] CLIA: [id number] [place] [address] [place] [address] ONLY - VAGINAL PATHOGENS BY NUCLEIC ACID TESTING (04/03/2020 2:18 PM RN PALLIATIVE) Pathologist Sig nature Trichomonas vaginalis Negative Negative [facility] Nasrin species Positive (A) Negative [facility] Nasrin glabrata Positive (A) Negative [facility] Bacterial Vaginosis Positive (A) Negative [facility] SERVICES Specimen Fluid - VAGINA Narrative Performed At Reliable results are dependent on adequate specimen [facility] SERVICES collection. This test detects Trichomonas vaginalis, Nasrin glabr valerie, and other Nasrin species (C. albicans, C. parapsilosi s, C. dubliniensis, and C. tropicalis). The assay does not differentiate among organisms in the [place] dida species group. The Bacterial Vaginosis result is determined based on relative amounts of the following target organisms: Lactobacillus (L. gasseri, L. crispatus, and L. bennett ii), Gardnerella vaginalis, and Atopobium vaginae. A sing le qualitative result is generated. This assay does not report individual organisms. A positive result obtained from a patient after therap eutic treatment cannot be interpreted as indicating the pres ence of viable organisms. For patients on whom a false po sitive result may have adverse psychosocial impact, retesting is advised. Indeterminate: Unable to generate a valid test result on this specimen. Please submit a new specimen for repe at testing if clinically indicated. This testing has not been validated for medico-legal purposes (sexual abuse in anh-pubertal and pre-pubert al children, sexual assault, and legal case s). Results from this testing should be interpreted in conjunction with other laboratory and clinical data available to the clinician. Performing Organization Address City/[facility] Phone Number [facility] CLIA: [id number] [place] [address] [place] [address] URINE CULTURE (04/03/2020 2:18 PM RN PALLIATIVE) URINE CULTURE >100,000 CFU/mL [facility] Escherichia coli SERVICES Specimen Urine - URINE, CLEAN CATCH Organism Antibiotic Method Susceptibility Escherichia coli Ampicillin SUSCEPTIBILITY TESTING <=2: Louisa ceptible Escherichia coli Cefazolin SUSCEPTIBILITY TESTING <=4: Louisa ceptible Escherichia coli Ceftriaxone SUSCEPTIBILITY TESTING <=1: Louisa ceptible Escherichia coli Ciprofloxacin SUSCEPTIBILITY TESTING <=0.25: Susceptible Escherichia coli Ertapenem SUSCEPTIBILITY TESTING <=0.5: S usceptible Escherichia coli Gentamicin SUSCEPTIBILITY TESTING <=1: Louisa ceptible Escherichia coli Levofloxacin SUSCEPTIBILITY TESTING <=0.12: Susceptible Escherichia coli Nitrofurantoin SUSCEPTIBILITY TESTING <=16: Kiser sceptible Escherichia coli Piperacillin/Tazobactam SUSCEPTIBILITY TESTING <=4: Susceptible Escherichia coli Trimethoprim/Sulfamethoxa SUSCEPTIBILITY TESTIN G <=20: Susceptible zole Comment: Nitrofurantoin is not recommended for us e in treating pyelonephritis or systemic disease. Performing Organization Address City/State/Zipcode Phone Number [facility] CLIA: [id number] [place] [address] [place] [address] POCT URINALYSIS W/O SPECIFIC GRAVITY (04/03/2020) Pathologist [...] Addre ss Type Group MEDICARE MEDICARE PART [id number] 2017-Justin [phone] [address] Medicare A & B nt 2 [id number] [place] [id number] documented as of this encounter
--- OUTSIDE RECORDS SUMMARY | 2020-05-06 01:09 | XMS REPORT | Summary of Care ---
:1970 Author Organization [facility] - [facility] Address [address] [place] [address] Care Team Providers Name Role Phone Fabby Meléndez Unavailable Bennie Zavala MD Primary Care Provider Eligio Garsia MD Unavailable Reason for Visit Reason Comments New Medication Encounter Details Date Type Department Care Team Description 04/07/2020 Case Management [facility] Women's AdumSisi MD New Medication Healthcare- [address] [facility] [address], [address] [place] [phone] [phone] Allergies Active Allergy Reactions Severity Noted Date [...] mouth at Coronary artery disease bedtime. involving [place] coronary artery of [place] heart without angina pectoris metoprolol succinate XL Take 1 tablet 30 tablet 11 08/17/2019 Active 100 mg 24 hr by mouth daily. tabletIndications: Coronary artery disease involving [place] coronary artery of [place] heart without angina pectoris DULOXETINE 30 mg [...] Use for 2 weeks on affected area Nitrofurantoin&Nit. Take 1 capsule 20 capsule 0 04/07/2020 Active Macrocryst (MACROBID) by mouth 2 100 mg (two) times capsuleIndications: daily. Urinary tract infection without hematuria, site unspecified documented as of this encounter (statuses as of 04/07/2020) Active Problems Problem Noted Date Obesity (BMI 30-39.9) 08/12/2019 Chest pain 08/12/2019 Coronary artery disease involving [place] coronary radha ry of [place] heart 08/05/2019 without angina pectoris PAD (peripheral artery disease) 08/05/2019 Chronic heart failure with preserved ejection fraction 08/05/2019 GARY (stress urinary incontinence, female) 02/02/2018 Overview: Added automatically from request for tate stone [id number] GERD (gastroesophageal reflux disease) DM (diabetes mellitus) [...] with No / Unsure 04/03/2020 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 documented as of this encounter Last Filed Vital Signs Not on filedocumented in this encounter Progress Notes Sisi Salinas MD - 04/07/2020 12:57 PM CSTSee result note for details Sisi Salinas MD documented in this encounter Plan of Treatment Date Type Specialty Care Team Description 04/17/2020 Telemedicine Visit Obstetrics & Gynecology Adum, Sisi L, MD [address] [facility] [address] [place] [phone] 05/01/2020 Office Visit Family Medicine Dev Zavala MD [address] [place] [phone] 05/08/2020 Office Visit Endocrinology Diabetes & Anatoly Flores, Metabolism [address] [facility] [address] [place], [place] [address] Health Maintenance Due Date [...] filedocumented in this encounter Visit Diagnoses Diagnosis Urinary tract infection without hematuri a, site unspecified - Primary documented in this encounter Insurance Payer Benefit Plan / Subscriber ID Effective Dates Phone Addre ss Type Group MEDICARE MEDICARE PART [id number] 2017-Justin [phone] Medicare A & B nt 2 [id number] [place] [id number] documented as of this encounter
--- OUTSIDE RECORDS SUMMARY | 2020-05-06 01:15 | XMS REPORT | Summary of Care ---
:1970 Author Organization [facility] - Health Address [address] [place] [address] Care Team Providers Name Role Phone Fabby Meléndez Unavailable Bennie Zavala MD Primary Care Provider Eligio Garsia MD Unavailable Reason for Visit Reason Comments Refill Request Encounter Details Date Type Department Care Team Description 04/13/2020 Refill [facility] Endocrinology- Anatoly Novoa MD Refill Request [place] [address] [facility] [address] [place] [address] [place] [phone] Allergies Active Allergy Reactions Severity Noted Date Comments Ketorolac Tromethamine Hives 12/15/2016 Tramadol Hives 12/15/2016 documented as of this encounter (statuses as of 04/13/2020) Medications Medication Sig Dispensed Refills Start End [...] at 0 Coronary artery bedtime. disease involving [place] coronary artery of [place] heart without angina pectoris metoprolol succinate Take 1 tablet 30 tablet 11 Active XL 100 mg 24 hr by mouth 0 tabletIndications: daily. Coronary artery disease involving [place] coronary artery of [place] heart without angina pectoris DULOXETINE 30 mg Take 1 30 capsule [...] unspecified HF chronicity, unspecified heart failure type PANTOPRAZOLE 40 mg TAKE 1 TABLET 30 tablet 0 Active EC BY MOUTH ONCE 0 tabletIndications: DAILY DO NOT Gastroesophageal CRUSH OR reflux disease CHEW POTASSIUM CHLORIDE Take 1 tablet 30 tablet 0 Active 10 mEq CR by mouth once 0 tabletIndications: daily Hypokalemia metroNIDAZOLE 500 mg Take 1 tablet 14 tablet 0 Active tabletIndications: by mouth 0 Vulvovaginitis every 12 (twelve) hours. clotrimazole-betamet Apply to 15 g 0 Active hasone area(s) 2 0 creamIndications: (two) times Vulvovaginitis daily. Use for 2 weeks on affected area Nitrofurantoin&Nit. Take 1 20 capsule 0 Active Macrocryst capsule by 0 (MACROBID) 100 mg mouth 2 (two) capsuleIndications: times daily. Urinary tract infection without hematuria, site unspecified sulfamethoxazole-tri Take 1 tablet 14 tablet 0 04/14 Active methoprim (BACTRIM by mouth 2 0 20 DS) 800-160 mg per (two) times tablet daily for 7 days. gabapentin 800 mg Take 1 tablet 90 tablet 0 Active tabletIndications: by mouth 3 0 Neuropathy (three) times daily. gabapentin 800 mg Take 1 tablet 90 tablet 0 04/13/20 Discontinued tabletIndications: by mouth 3 0 20 (Reorder) Neuropathy (three) times daily. documented as of this encounter (statuses as of 04/13/2020) Active Problems Problem Noted Date Obesity (BMI 30-39.9) 08/12/2019 Chest pain 08/12/2019 Coronary artery disease involving [place] coronary radha ry of [place] heart 08/05/2019 without angina pectoris PAD (peripheral artery disease) 08/05/2019 Chronic heart failure with preserved ejection fraction 08/05/2019 GARY (stress urinary incontinence, female) 02/02/2018 Overview: Added automatically from request for tate bertha [id number] GERD (gastroesophageal reflux disease) DM (diabetes mellitus) Depression CVA (cerebral vascular accident) CHF (congestive heart failure) Anxiety Angina pectoris H/O right coronary artery stent placement High cholesterol HTN (hypertension) Hx of CABG Migraines Seizures Unilateral AKA, right documented as of this encounter (statuses as of 04/13/2020) Social History Tobacco Use Types Packs/Day Years Used Date Current Every Day Smoker Cigarettes 1 Smokeless Tobacco: Never Used Comments: smoking since 14 years old Alcohol Use Drinks/Week oz/Week Comments Yes rare Sex Assigned at Date Recorded Not on file COVID-19 Exposure Response Date Recorded In the last month, have you been in contact with No / Unsure 04/03/2020 1:13 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 documented as of this encounter Last Filed Vital Signs Not on filedocumented in this encounter Miscellaneous Notes Telephone Encounter - Jennifer Cabello RN - 04/13/2020 2:37 PM CSTPlease advise, NOV: 05/08/20 ADDIOSN: 01/10/20 Requesting refill on gabapentin 800 mg tablet Please send prescription if appropriate. 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 [place] [phone] 05/01/2020 Office Visit Family Medicine Dev Zavala MD [address] [place] [phone] 05/08/2020 Office Visit Endocrinology Diabetes & Anatoly Flores, Metabolism [address] [address] Health Maintenance Due Date Last [...] Addre ss Type Group MEDICARE MEDICARE PART [id number] 2017-Justin [phone] [address] Medicare A & B nt 2 [id number] [place] [id number] documented as of this encounter
--- OUTSIDE RECORDS SUMMARY | 2020-05-06 01:15 | XMS REPORT | Summary of Care ---
:1970 Author Organization [facility] - [facility] Address [address] [place] [address] Care Team Providers Name Role Phone Fabby Meléndez Unavailable Bennie Zavala MD Primary Care Provider Eligio Garsia MD Unavailable Reason for Visit Reason Comments New Medication Encounter Details Date Type Department Care Team Description 04/08/2020 Telephone [facility] Women's AdumSisi MD New Medication Healthcare- [address] Dr[address]issa 146 [facility] [address] [place] [address] [place] [address] [phone] Allergies Active Allergy Reactions Severity Noted Date Comments Ketorolac Tromethamine Hives 12/15/2016 Tramadol Hives 12/15/2016 documented as of this encounter (statuses as of 04/08/2020) Medications Medication Sig Dispensed Refills Start Date [...] mouth at Coronary artery disease bedtime. involving tuolumne coronary artery of tuolumne heart without angina pectoris metoprolol succinate XL Take 1 tablet 30 tablet 11 08/17/2019 Active 100 mg 24 hr by mouth daily. tabletIndications: Coronary artery disease involving tuolumne coronary artery of tuolumne heart without angina pectoris DULOXETINE 30 mg [...] CR by mouth once tabletIndications: daily Hypokalemia metroNIDAZOLE 500 mg Take [...] Urinary tract infection without hematuria, site unspecified sulfamethoxazole-trimet Take 1 tablet 14 tablet 0 04/07/2020 1 06/14/2019 Active hoprim (BACTRIM DS) by mouth 2 800-160 mg per tablet (two) times daily for 7 days. documented as of this encounter (statuses as of 04/08/2020) Active Problems Problem Noted Date Obesity (BMI 30-39.9) 08/12/2019 Chest pain 08/12/2019 Coronary artery disease involving tuolumne coronary radha ry of tuolumne heart 08/05/2019 without angina pectoris PAD (peripheral artery disease) 08/05/2019 Chronic heart failure with preserved ejection fraction 08/05/2019 GARY (stress urinary incontinence, female) 02/02/2018 Overview: Added automatically from request for tate bertha [id number] GERD (gastroesophageal reflux disease) DM (diabetes mellitus) Depression CVA (cerebral vascular accident) CHF (congestive heart failure) Anxiety Angina pectoris H/O right coronary artery stent placement High cholesterol HTN (hypertension) Hx of CABG Migraines Seizures Unilateral AKA, right documented as of this encounter (statuses as of 04/08/2020) Social History Tobacco Use Types Packs/Day Years Used Date Current Every Day Smoker Cigarettes 1 Smokeless Tobacco: Never Used Comments: smoking since 14 years old Alcohol Use Drinks/Week oz/Week Comments Yes rare Sex Assigned at Date Recorded Not on file COVID-19 Exposure Response Date Recorded In the last month, have you been in contact with No / Unsure 04/03/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 documented as of this encounter Last Filed Vital Signs Not on filedocumented in this encounter Miscellaneous Notes Telephone Encounter - Bambi Cook MA - 04/08/2020 2:58 PM CSTS/w patient and identified name and , after further discussion with patient, patient stated she would treat symptoms with macrobid, informed patient that I would cancel Bactrim. S/w Rosey at [facility] pharmacy and cx Bactrim. Patient will be seen for a follow up appointment in about 2 weeks so see how she is feeling. Patient verbalized understanding. documented in this encounter Plan of Treatment Date Type Specialty Care Team Description 04/17/2020 Telemedicine Visit Obstetrics & Gynecology Sisi Salinas MD [address] [place], [place] [address]Mar[address] [phone] 05/01/2020 Office Visit Family Medicine Dev Zavala MD [address] [place] [address] 05/08/2020 Office Visit Endocrinology Diabetes & Anatoly Flores, Metabolism [address] [address] Health Maintenance Due Date [...] Addre ss Type Group MEDICARE MEDICARE PART [id number] 2017-Justin [phone] Medicare A & B nt 2 [id number] [place] [phone] documented as of this encounter
--- OUTSIDE RECORDS SUMMARY | 2020-05-06 01:15 | XMS REPORT | Summary of Care ---
:1970 Author Organization [facility] - [facility] Address [address] [place] [address] Care Team Providers Name Role Phone Fabby Meléndez Unavailable Bennie Zavala MD Primary Care Provider Eligio Garsia MD Unavailable Reason for Visit Reason Comments Refill Request Encounter Details Date Type Department Care Team Description 04/14/2020 Refill [facility] Dev Hernandez MD Refill Request - [address] [facility] [place] [address] [place] [address] [phone] Allergies Active Allergy Reactions Severity Noted Date Comments Ketorolac Tromethamine Hives 12/15/2016 Tramadol Hives 12/15/2016 documented as of this encounter (statuses as of 04/15/2020) Medications Medication Sig Dispensed Refills Start Date [...] mouth at Coronary artery bedtime. disease involving jackson coronary artery of jackson heart without angina pectoris metoprolol succinate Take 1 tablet 30 tablet 11 08/17/2019 Active XL 100 mg 24 hr by mouth tabletIndications: daily. Coronary artery disease involving jackson coronary artery of jackson heart without angina pectoris DULOXETINE 30 mg Take 1 capsule 30 capsule 2 12/05/2019 Active capsuleIndications: by mouth once Anxiety and daily depression, Peripheral neuropathic pain metFORMIN 500 mg Take 2 tablets 360 tablet 1 12/05/2019 Active tablet by mouth 2 (two) times daily with meals. metroNIDAZOLE 500 mg Take 1 tablet 14 tablet 0 04/03/2020 Active tabletIndications: by mouth every Vulvovaginitis 12 (twelve) hours. clotrimazole-betameth Apply to 15 g 0 04/03/2020 Active asone area(s) 2 creamIndications: (two) times Vulvovaginitis daily. Use for 2 weeks on affected area Nitrofurantoin&Nit. Take 1 capsule 20 capsule 0 04/07/2020 Active Macrocryst (MACROBID) by mouth 2 100 mg (two) times capsuleIndications: daily. Urinary tract infection without hematuria, site unspecified gabapentin 800 mg Take 1 tablet 90 tablet 0 04/13/2020 Active tabletIndications: by mouth 3 Neuropathy (three) times daily. PANTOPRAZOLE 40 mg EC TAKE 1 TABLET 30 tablet 0 04/15/2020 Active tabletIndications: BY MOUTH ONCE Gastroesophageal DAILY DO NOT reflux disease CRUSH OR CHEW FUROSEMIDE 20 mg Take 1 tablet 90 tablet 0 04/15/2020 Active tabletIndications: by mouth once Congestive heart daily failure, unspecified HF chronicity, unspecified heart failure type POTASSIUM CHLORIDE 10 Take 1 tablet 30 tablet 0 04/15/2020 Active mEq CR by mouth once tabletIndications: daily Hypokalemia FUROSEMIDE 20 mg Take 1 tablet 90 tablet 0 01/14/2020 04/15/20 Discontinued tabletIndications: by mouth once 20 Congestive heart daily failure, unspecified HF chronicity, unspecified heart failure type PANTOPRAZOLE 40 mg EC TAKE 1 TABLET 30 tablet 0 03/20/2020 Discontinued tabletIndications: BY MOUTH ONCE 20 Gastroesophageal DAILY DO NOT reflux disease CRUSH OR CHEW POTASSIUM CHLORIDE 10 Take 1 tablet 30 tablet 0 03/20/2020 Discontinued mEq CR by mouth once 20 tabletIndications: daily Hypokalemia documented as of this encounter (statuses as of 04/15/2020) Active Problems Problem Noted Date Obesity (BMI 30-39.9) 08/12/2019 Chest pain 08/12/2019 Coronary artery disease involving jackson coronary radha ry of jackson heart 08/05/2019 without angina pectoris PAD (peripheral artery disease) 08/05/2019 Chronic heart failure with preserved ejection fraction 08/05/2019 GARY (stress urinary incontinence, female) 02/02/2018 Overview: Added automatically from request for tate stone [id number] GERD (gastroesophageal reflux disease) DM (diabetes mellitus) Depression CVA (cerebral vascular accident) CHF (congestive heart failure) Anxiety Angina pectoris H/O right coronary artery stent placement High cholesterol HTN (hypertension) Hx of CABG Migraines Seizures Unilateral AKA, right documented as of this encounter (statuses as of 04/15/2020) Social History Tobacco Use Types Packs/Day Years Used Date Current Every Day Smoker Cigarettes 1 Smokeless Tobacco: Never Used Comments: smoking since 14 years old Alcohol Use Drinks/Week oz/Week Comments Yes rare Sex Assigned at Date Recorded Not on file COVID-19 Exposure Response Date Recorded In the last month, have you been in contact with No / Unsure 04/03/2020 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 documented as of this encounter Last Filed Vital Signs Not on filedocumented in this encounter Plan of Treatment Date Type Specialty Care Team Description 04/17/2020 Telemedicine Visit Obstetrics & Gynecology Sisi Salinas MD [address] [facility] [address] [place] [address] [place] [phone] 05/01/2020 Office Visit Family Medicine Dev Zavala MD [address] [place] [phone] 05/08/2020 Office Visit Endocrinology Diabetes & Anatoly Flores, Metabolism [address] [facility] [address] [place], [place] [address] Health Maintenance Due Date [...] Diagnoses Diagnosis Gastroesophageal reflux disease Esophageal reflux Congestive heart failure, unspecified HF chronicity, unspecified heart failure type Hypokalemia Hypopotassemia High cholesterol Pure hypercholesterolemia documented in this encounter Insurance Payer Benefit Plan / Subscriber ID Effective Dates Phone Addre ss Type Group MEDICARE MEDICARE PART [id number] 2017-Justin [phone] Medicare A & B nt 2 [id number] [place] [address] documented as of this encounter
--- OUTSIDE RECORDS SUMMARY | 2020-05-06 01:16 | XMS REPORT | Summary of Care ---
:1970 Author Organization [facility] - [facility] Address [address] [place] [address] Care Team Providers Name Role Phone Fabby Meléndez Unavailable Bennie Zavala MD Primary Care Provider Eligio Garsia MD Unavailable Reason for Visit Reason Comments Error Encounter Details Date Type Department Care Team Description 04/17/2020 Telemedicine Visit [facility] Women's AdumSisi, CANCELLATION Healthcare- MD (Primary Dx) [address] [place], [address] Ziyad [address] [place] [phone] Allergies Active Allergy Reactions Severity Noted Date Comments Ketorolac Tromethamine Hives 12/15/2016 Tramadol Hives 12/15/2016 documented as of this encounter (statuses as of 04/21/2020) Medications Medication Sig Dispensed Refills Start Date End Date Status albuterol 90 Inhale 2 Puffs 1 Inhaler 1 03/26/2019 A ctive mcg/actuation every 6 (six) inhalerIndications: hours as needed Persistent cough, for Wheezing or Tobacco use, Wheezing Shortness of Breath. nitroglycerin 0.4 mg 1 tab SL q5min up 25 tablet 0 03/26/2019 Active sublingual to 3 doses PRN tabletIndications: H/O chest pain, then right coronary artery activate 911. stent placement isosorbide mononitrate Take 1 tablet by 90 tablet 1 08/05/2019 Active 30 mg 24 hr mouth daily. tabletIndications: H/O right coronary artery stent placement aspirin 81 mg chewable Take 1 tablet by 90 tablet 3 Active tablet mouth daily. clopidogreL (PLAVIX) Take 1 tablet by 30 tablet 11 08/16/2019 Active 75 mg mouth daily. tabletIndications: H/O right coronary artery stent placement insulin NPH and Inject 84 units 6 Vial 3 08/16/2019 Active regular human 70-30 AM, 84 units PM (NOVOLIN 70/30 U-100 INSULIN) 100 unit/mL (70-30) injectionIndications: Type 2 diabetes mellitus with diabetic peripheral angiopathy without gangrene, with long-term current use of insulin atorvastatin 80 mg Take 1 tablet by 30 tablet 11 08/16/2019 Active tabletIndications: mouth at bedtime. Coronary artery disease involving lummi coronary artery of lummi heart without angina pectoris metoprolol succinate Take 1 tablet by 30 tablet 11 08/17/2019 Active XL 100 mg 24 hr mouth daily. tabletIndications: Coronary artery disease involving lummi coronary artery of lummi heart without angina pectoris DULOXETINE 30 mg Take 1 capsule by 30 capsule 2 12/05/2019 Active capsuleIndications: mouth once daily Anxiety and depression, Peripheral neuropathic pain metFORMIN 500 mg Take 2 tablets by 360 tablet 1 12/05/2019 Active tablet mouth 2 (two) times daily with meals. metroNIDAZOLE 500 mg Take 1 tablet by 14 tablet 0 04/03/2020 Active tabletIndications: mouth every 12 Vulvovaginitis (twelve) hours. clotrimazole-betametha Apply to area(s) 15 g 0 0 Active sone creamIndications: 2 (two) times Vulvovaginitis daily. Use for 2 weeks on affected area documented as of this encounter (statuses as of 04/21/2020) Active Problems Problem Noted Date Obesity (BMI 30-39.9) 08/12/2019 Chest pain 08/12/2019 Coronary artery disease involving lummi coronary radha ry of lummi heart 08/05/2019 without angina pectoris PAD (peripheral artery disease) 08/05/2019 Chronic heart failure with preserved ejection fraction 08/05/2019 GARY (stress urinary incontinence, female) 02/02/2018 Overview: Added automatically from request for tate stone [id number] GERD (gastroesophageal reflux disease) DM (diabetes mellitus) Depression CVA (cerebral vascular accident) CHF (congestive heart failure) Anxiety Angina pectoris H/O right coronary artery stent placement High cholesterol HTN (hypertension) Hx of CABG Migraines Seizures Unilateral AKA, right documented as of this encounter (statuses as of 04/21/2020) Social History Tobacco Use Types Packs/Day Years Used Date Current Every Day Smoker Cigarettes 1 Smokeless Tobacco: Never Used Comments: smoking since 14 years old Alcohol Use Drinks/Week oz/Week Comments Yes rare Sex Assigned at Date Recorded Not on file COVID-19 Exposure Response Date Recorded In the last month, have you been in contact with No / Unsure 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 documented as of this encounter Last Filed Vital Signs Not on filedocumented in this encounter Progress Notes Sisi Salinas MD - 04/17/2020 11:00 AM CSTCancellation documented in this encounter Plan of Treatment Date Type Specialty Care Team Description 05/01/2020 Office Visit Family Medicine Dev Zavala MD [address] [place] [address] 05/08/2020 Office Visit Endocrinology Diabetes & Anatoly Chapin MD Metabolism [address] [facility] Z[address] [place], [place] [address] Health Maintenance Due Date [...] filedocumented in this encounter Visit Diagnoses Diagnosis CANCELLATION - Primary documented in this encounter Insurance Payer Benefit Plan / Subscriber ID Effective Dates Phone Addre ss Type Group MEDICARE MEDICARE PART [id number] 2017-Justin [phone] Medicare A & B nt 2 [id number] [place] [phone] [id number] documented as of this encounter
[2020-05-06] MEDS ORDERED: NA CHLORIDE 0.9% 500 ML ONE (01:29)
[2020-05-06] MEDS ORDERED: ASPIRIN 81 MG CHEWABLE TABLET ONE (01:29)
[2020-05-06 01:38] LABS: Absolute Lymphocytes (CBC) 2.1 K/uL (0.7-4.9); Hematocrit 43.5 % (36.0-45.0); MPV 9.7 fL (7.6-11.3); RBC Red Blood Cell Count 4.74 M/uL (3.86-4.86)
[2020-05-06] MEDS ORDERED: CLOPIDOGREL 75 MG TABLET ONE (01:40)
[2020-05-06] MEDS ORDERED: ENOXAPARIN 80 MG/0.8 ML SQ ONE (01:41)
[2020-05-06] MEDS ORDERED: ONDANSETRON 4 MG/2 ML VIAL ONE ×2 (01:41→09:50)
[2020-05-06] MEDS ORDERED: MORPHINE 4 MG/ML SYR ONE (01:41)
--- NOTE | 2020-05-06 02:05 | ER ---
Nurse's Notes [facility] Name: Karen Shah Age: 49 yrs Sex: Female : 1970 Arrival Date: 05/06/2020 Time: 00:48 Bed 19 Private MD: Diagnosis: Other chest pain;Tobacco abuse counseling;Tobacco use;Type 2 diabetes mellitus-uncontrolled;Hypomagnesemia Presentation: 05/06 01:16 Chief complaint: Patient states: Pt reports she has been having chest pain for the past ea few days, reports it comes and goes, today she noticed her left arm started hurting. Coronavirus screen: At this time, the client does not indicate any symptoms associated with coronavirus-19. Ebola Screen: No symptoms or risks identified at this time. Initial Sepsis Screen: Does the patient meet any 2 criteria? No. Patient's initial sepsis screen is negative. Does the patient have a suspected source of infection? No. Patient's initial sepsis screen is negative. Risk Assessment: Do you want to hurt yourself or someone else? Patient reports no desire to harm self or others. Onset of symptoms was May 06, 2020. 01:16 Method Of Arrival: Wheelchair ea 01:16 Acuity: ARIEL 3 ea Triage Assessment: 01:21 General: Appears uncomfortable, Behavior is appropriate for age. Pain: Complains of ea pain in chest. Pain: Pain radiates to left arm. Neuro: Cardiovascular: Patient's skin is warm and dry. Respiratory: Airway is patent Respiratory effort is even, unlabored, Respiratory pattern is regular, symmetrical. Derm: Skin is pink, warm \T\ dry. 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 - Family history:: not pertinent. - Social history:: Smoking status: Patient denies any tobacco usage or history of. Screenin:16 Abuse screen: Denies threats or abuse. Nutritional screening: No deficits noted. ea Tuberculosis screening: No symptoms or risk factors identified. Fall Risk IV access (20 points). Assessment: 01:22 Reassessment: See triage assessment. Pain: Complains of pain in chest Pain radiates to ea left arm Quality of pain is described as indigestion Pain began 2-3 days ago. 03:55 Reassessment: blood sugar 405 mg/Dl hospitalist informed to repeat the test at 0500H. rr5 Vital Signs: 01:15 BP 140 / 84; Pulse 96; Resp 19; Temp 97.7; Pulse Ox 100% ; Weight 71.67 kg; Height 5 ea ft. 4 in. (162.56 cm); Pain 9/10; 03:03 BP 137 / 86; Pulse 97; Resp 17; Temp 98; Pulse Ox 100% ; rv 01:15 Body Mass Index 27.12 (71.67 kg, 162.56 cm) ea ED Course: 00:48 Patient arrived in ED. ag3 00:53 Isidro Villa MD is Attending Physician. chasity 01:16 Patient has correct armband on for positive identification. Bed in low position. Call ea light in reach. Side rails up X2. monitoring and evaluation advisor on. Pulse ox on. NIBP on. 01:18 Triage completed. ea 01:18 Arm band placed on right wrist. Patient placed in an exam room, on a stretcher, on ea monitor technician, on pulse oximetry. EKG completed in triage. Results shown to MD. 01:19 XRAY Chest (1 view) In Process Unspecified. EDMS 01:20 Luis Francisco RN is Primary Nurse. rv 01:21 Inserted saline lock: 20 gauge in right antecubital area, using aseptic technique. ea Blood collected. per Mitchel MURILLO. Patient maintains SpO2 saturation greater than 95% on room air. 02:03 Jac Barber DO is Hospitalizing Provider. chasity 03:02 No provider procedures requiring assistance completed. IV is patent, with fluids rv infusing freely, Patient admitted, IV remains in place. Administered Medications: Discontinued: NS 0.9% 1000 ml IV at 1 bolus Per protocol; 1000 mL bolus 01:21 Drug: NS 0.9% 1000 ml Route: IV; Rate: 125 ml/hr; Site: right antecubital; rv 03:01 Follow up: IV Status: Infusion continued upon admission rv 01:21 Drug: Aspirin Chewable Tablet 324 mg Route: PO; rv 02:59 Follow up: Response: No adverse reaction rv 01:37 Drug: morphine 2 mg {Note: rass 0.} Route: IVP; Site: right antecubital; rv 01:37 Drug: Zofran (Ondansetron) 4 mg Route: IVP; Site: right antecubital; rv 03:00 Follow up: Response: No adverse reaction rv 01:38 Drug: PlaVIX 75 mg Route: PO; rv 02:59 Follow up: Response: No adverse reaction rv 01:38 Drug: Lovenox 1 mg/kg Route: Sub-Q; Site: abdomen; rv 03:00 Follow up: Response: No adverse reaction rv 01:57 Drug: morphine 2 mg Route: IVP; Site: right antecubital; rv 03:00 Follow up: Response: No adverse reaction; Pain is decreased; RASS: Alert and Calm (0) rv 02:57 Drug: Insulin Regular Human 10 units {Co-Signature: rr5 (Andrae Kenny RN).} Route: rv IVP; Site: right antecubital; 03:00 Follow up: Response: Medication administered at discharge. rv 02:58 Drug: Insulin Regular Human 10 units {Co-Signature: rr5 (Andrae Kenny RN).} Route: rv Sub-Q; Site: left upper arm; 03:00 Follow up: Response: Medication administered at discharge. rv 02:58 Drug: NS 0.9% 1000 ml Route: IV; Rate: 1 bolus; Site: right antecubital; rv 02:59 Drug: NS 0.9% 1000 ml Route: IV; Rate: 1 bolus; Site: right antecubital; rv 03:01 Follow up: IV Status: Infusion continued upon admission rv 02:59 Drug: Pepcid 20 mg Route: IVP; Site: right antecubital; rv 03:01 Follow up: Response: Medication administered at discharge. rv 03:40 Drug: Magnesium Sulfate 1 grams Route: IVPB; Infused Over: 1 hrs; Site: right rv antecubital; 03:40 Follow up: IV Status: Infusion continued upon admission rv 04:39 Follow up: Response: No adverse reaction; IV Status: Completed infusion; IV Intake: rr5 100ml Intake: 04:39 IV: 100ml; Total: 100ml. rr5 Outcome: 02:04 Decision to Hospitalize by Provider. chasity 03:02 Admitted to ER Hold. Please see [facility] for further documentation. rv 03:02 Condition: good 11:32 Patient left the ED. ph Signatures: Dispatcher [employer] EDIsidro Bosch MD MD cha Hall, Patricia, RN RN Diana Miranda, RN RN Luis Mays, RN RN Marta Holloway Raymond, CHIDI RN rr5 Andrae Kenny RN rr5
--- NOTE | 2020-05-06 02:05 | EDPHYS ---
Physician Documentation [facility] – [place], [place] Name: Karen Shah Age: 49 yrs Sex: Female : 1970 Arrival Date: 05/06/2020 Time: 00:48 Bed 19 Private MD: ED Physician Isidro Villa HPI: 05/06 01:15 This 49 yrs old Female presents to ER via Unassigned with complaints of Chest chasity Pain. 01:15 The patient or guardian reports chest pain that is located primarily in the substernal chasity area. Onset: 2 day(s) ago. The pain radiates to the left arm, the left shoulder. Associated signs and symptoms: Pertinent positives: nausea, shortness of breath. The chest pain is described as a heaviness, a pressure. Duration: The patient or guardian reports a single episode, that is still ongoing, but improving. Modifying factors: The symptoms are alleviated by nothing. the symptoms are aggravated by nothing. Severity of pain: At its worst the pain was moderate in the emergency department the pain is unchanged. The patient has experienced similar episodes in the past, multiple times. 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 - Family history:: not pertinent. - Social history:: Smoking status: Patient denies any tobacco usage or history of. ROS: 01:15 Constitutional: Negative for fever, chills, and weight loss, Eyes: Negative for injury, chasity pain, redness, and discharge, ENT: Negative for injury, pain, and discharge, Neck: Negative for injury, pain, and swelling, Respiratory: Negative for shortness of breath, cough, wheezing, and pleuritic chest pain, Abdomen/GI: Negative for abdominal pain, nausea, vomiting, diarrhea, and constipation, Back: Negative for injury and pain, : Negative for injury, bleeding, discharge, and swelling, MS/Extremity: Negative for injury and deformity, Skin: Negative for injury, rash, and discoloration, Neuro: Negative for headache, weakness, numbness, tingling, and seizure, Psych: Negative for depression, anxiety, suicide ideation, homicidal ideation, and hallucinations, Allergy/Immunology: Negative for hives, rash, and allergies, Endocrine: Negative for neck swelling, polydipsia, polyuria, polyphagia, and marked weight changes, Hematologic/Lymphatic: Negative for swollen nodes, abnormal bleeding, and unusual bruising. 01:15 Cardiovascular: Positive for chest pain, of the chest. Exam: 01:15 Constitutional: This is a well developed, well nourished patient who is awake, alert, chasity and in no acute distress. Head/Face: Normocephalic, atraumatic. Eyes: Pupils equal round and reactive to light, extra-ocular motions intact. Lids and lashes normal. Conjunctiva and sclera are non-icteric and not injected. Cornea within normal limits. Periorbital areas with no swelling, redness, or edema. ENT: Nares patent. No nasal discharge, no septal abnormalities noted. Tympanic membranes are normal and external auditory canals are clear. Oropharynx with no redness, swelling, or masses, exudates, or evidence of obstruction, uvula midline. Mucous membranes moist. Neck: Trachea midline, no thyromegaly or masses palpated, and no cervical lymphadenopathy. Supple, full range of motion without nuchal rigidity, or vertebral point tenderness. No Meningismus. Chest/axilla: Normal chest wall appearance and motion. Nontender with no deformity. No lesions are appreciated. Cardiovascular: Regular rate and rhythm with a normal S1 and S2. No gallops, murmurs, or rubs. Normal PMI, no JVD. No pulse deficits. Respiratory: Lungs have equal breath sounds bilaterally, clear to auscultation and percussion. No rales, rhonchi or wheezes noted. No increased work of breathing, no retractions or nasal flaring. Abdomen/GI: Soft, non-tender, with normal bowel sounds. No distension or tympany. No guarding or rebound. No evidence of tenderness throughout. Back: No spinal tenderness. No costovertebral tenderness. Full range of motion. Female : Normal external genitalia. Skin: Warm, dry with normal turgor. Normal color with no rashes, no lesions, and no evidence of cellulitis. MS/ Extremity: Pulses equal, no cyanosis. Neurovascular intact. Full, normal range of motion. Neuro: Awake and alert, GCS 15, oriented to person, place, time, and situation. Cranial nerves II-XII grossly intact. Motor strength 5/5 in all extremities. Sensory grossly intact. Cerebellar exam normal. Normal gait. Psych: Awake, alert, with orientation to person, place and time. Behavior, mood, and affect are within normal limits. 01:20 ECG was reviewed by the Attending Physician. [facility] Vital Signs: 01:15 BP 140 / 84; Pulse 96; Resp 19; Temp 97.7; Pulse Ox 100% ; Weight 71.67 kg; Height 5 ea ft. 4 in. (162.56 cm); Pain 9/10; 03:03 BP 137 / 86; Pulse 97; Resp 17; Temp 98; Pulse Ox 100% ; rv 01:15 Body Mass Index 27.12 (71.67 kg, 162.56 cm) ea MDM: 00:55 Patient medically screened. chasity 01:17 Differential diagnosis: abnormal EKG, acute myocardial infarction, coronary artery chasity disease chest wall pain, cholecystitis, Cholelithiasis hiatal hernia, pulmonary embolus, stable angina, unstable angina. HEART Score: History: Moderately Suspicious (1), ECG: Non specific repolarization disturbance / LBTB / PM (1), Age: > 45 and < 65 years (1), Risk Factors: > or = 3 Risk factors for atherosclerotic disease (2), [Hypercholesterolemia] [Hypertension] [DM] [+ Family HX]. The patient was given aspirin in the Emergency Department. The patient's deep vein thrombosis risk score was calculated as follows: Total Score: 0. This patient was found to be at low risk for a deep vein thrombosis by using the Well's assessment criteria. The patient's pulmonary embolism risk score was calculated as follows: Total Score: 0-2 points. This patient was found to be at low risk for a pulmonary embolism by using the Well's assessment criteria. MASSIMO Risk Score: 1 - Three or more CAD risk factors, 1 - Recent [<24hrs] Severe Angina, TOTAL SCORE = 2. Data reviewed: vital signs, nurses notes, lab test result(s), EKG, radiologic studies, plain films. Data interpreted: quality assurance monitor chassis: rate is 96 beats/min, rhythm is regular, Pulse oximetry: on room air is 100 %. 05/06 00:54 Order name: Basic Metabolic Panel [facility] 05/06 00:54 Order name: CBC with Diff [facility] 05/06 00:54 Order name: LFT's [facility] 05/06 00:54 Order name: Magnesium [facility] 05/06 00:54 Order name: Troponin (emerg Dept Use Only) [facility] 05/06 00:54 Order name: Lipase [facility] 05/06 00:54 Order name: UDS [facility] 05/06 00:54 Order name: D-Dimer [facility] 05/06 00:55 Order name: Basic Metabolic Panel [facility] 05/06 02:51 Interpretation: GFR 44. la1 05/06 00:55 Order name: CBC with Automated Diff; Complete Time: 02:01 [facility] 05/06 01:48 Order name: D-Dimer; Complete Time: 02:01 [facility] 05/06 03:01 Order name: BNP [facility] 05/06 03:51 Order name: Glucose, Ancillary Testing [facility] 05/06 04:14 Order name: COVID-19 rr5 05/06 00:54 Order name: XRAY Chest (1 view) [facility] 05/06 04:41 Order name: CORONAVIRUS [facility] 05/06 05:32 Order name: SARS-COV-2 RT PCR [facility] 05/06 05:39 Order name: Glucose, Ancillary Testing [facility] 05/06 06:07 Order name: Urine --Ancillary (enter results) tt3 05/06 06:07 Order name: Urine Dipstick--Ancillary (enter results) tt3 05/06 06:15 Order name: Urinalysis [facility] 05/06 06:31 Order name: Troponin I [facility] 05/06 06:31 Order name: Lipid Profile [facility] 05/06 00:54 Order name: EKG; Complete Time: 00:[address] [facility] 05/06 00:54 Order name: Cardiac monitoring; Complete Time: 01:[address] [facility] 05/06 00:54 Order name: EKG - Nurse/Tech; Complete Time: 01:[address] [facility] 05/06 00:54 Order name: IV Saline Lock; Complete Time: 01:[address] [facility] 12 00:54 Order name: Labs collected and sent; Complete Time: : [facility] 05/06 00:54 Order name: O2 Per Protocol; Complete Time: :[address] [facility] 05/06 00:54 Order name: O2 Sat Monitoring; Complete Time: 01:[address] [facility] 05/06 00:54 Order name: Urine Dipstick-Ancillary (obtain specimen); Complete Time: 06:34 chasity EC:20 Rate is 98 beats/min. Rhythm is regular. QRS Lagrange is Normal. DC interval is normal. QRS chasity interval is normal. QT interval is normal. No Q waves. T waves are Normal. No ST changes noted. Clinical impression: NSR w/ Non-specific ST/T Changes and No evidence of ischemia. Interpreted by me. Reviewed by me. Administered Medications: Discontinued: NS 0.9% 1000 ml IV at 1 bolus Per protocol; 1000 mL bolus 01:21 Drug: NS 0.9% 1000 ml Route: IV; Rate: 125 ml/hr; Site: right antecubital; rv 03:01 Follow up: IV Status: Infusion continued upon admission rv 01:21 Drug: Aspirin Chewable Tablet 324 mg Route: PO; rv 02:59 Follow up: Response: No adverse reaction rv 01:37 Drug: morphine 2 mg {Note: rass 0.} Route: IVP; Site: right antecubital; rv 01:37 Drug: Zofran (Ondansetron) 4 mg Route: IVP; Site: right antecubital; rv 03:00 Follow up: Response: No adverse reaction rv 01:38 Drug: PlaVIX 75 mg Route: PO; rv 02:59 Follow up: Response: No adverse reaction rv 01:38 Drug: Lovenox 1 mg/kg Route: Sub-Q; Site: abdomen; rv 03:00 Follow up: Response: No adverse reaction rv 01:57 Drug: morphine 2 mg Route: IVP; Site: right antecubital; rv 03:00 Follow up: Response: No adverse reaction; Pain is decreased; RASS: Alert and Calm (0) rv 02:57 Drug: Insulin Regular Human 10 units {Co-Signature: rr5 (Andrae Kenny RN).} Route: rv IVP; Site: right antecubital; 03:00 Follow up: Response: Medication administered at discharge. rv 02:58 Drug: Insulin Regular Human 10 units {Co-Signature: rr5 (Andrae Kenny RN).} Route: rv Sub-Q; Site: left upper arm; 03:00 Follow up: Response: Medication administered at discharge. rv 02:58 Drug: NS 0.9% 1000 ml Route: IV; Rate: 1 bolus; Site: right antecubital; rv 02:59 Drug: NS 0.9% 1000 ml Route: IV; Rate: 1 bolus; Site: right antecubital; rv 03:01 Follow up: IV Status: Infusion continued upon admission rv 02:59 Drug: Pepcid 20 mg Route: IVP; Site: right antecubital; rv 03:01 Follow up: Response: Medication administered at discharge. rv 03:40 Drug: Magnesium Sulfate 1 grams Route: IVPB; Infused Over: 1 hrs; Site: right rv antecubital; 03:40 Follow up: IV Status: Infusion continued upon admission rv 04:39 Follow up: Response: No adverse reaction; IV Status: Completed infusion; IV Intake: rr5 100ml Disposition: 05/06/20 02:04 Hospitalization ordered by Jac Barber for Observation. Preliminary diagnosis are Other chest pain, Tobacco abuse counseling, Tobacco use, Type 2 diabetes mellitus - uncontrolled, Hypomagnesemia. - Bed requested for [facility] ER HOLD. - Status is Observation. ph - Condition is Fair. - Problem is new. - Symptoms have improved. Signatures: Dispatcher [employer] EDMS Alodnra Amato RN RN mw Anderson, Corey, MD MD cha Attema, Lee, [employer]-[facility] Erica Hester RN RN ph Antunez, Elena, RN RN ea Vicente, Ronaldo, RN RN rv Roque, Raymond RN rr5 Andrae Kenny RN rr5 Corrections: (The following items were deleted from the chart) 02:05 02:04 Hospitalization Ordered by Jac Barber DO for Observation. Preliminary mw diagnosis is Other chest pain; Tobacco abuse counseling; Tobacco use; Type 2 diabetes mellitus. Bed requested for Telemetry/MedSurg (observation). Status is Observation. Condition is Fair. Problem is new. Symptoms have improved. chasity 02:54 02:05 05/06/2020 02:04 Hospitalization Ordered by Jac Barber DO for Observation. chasity Preliminary diagnosis is Other chest pain; Tobacco abuse counseling; Tobacco use; Type 2 diabetes mellitus. Bed requested for [facility] ER HOLD. Status is Observation. Condition is Fair. Problem is new. Symptoms have improved. mw 11:32 02:54 05/06/2020 02:04 Hospitalization Ordered by Jac Barber DO for Observation. ph Preliminary diagnosis is Other chest pain; Tobacco abuse counseling; Tobacco use; Type 2 diabetes mellitus - uncontrolled; Hypomagnesemia. Bed requested for [facility] ER HOLD. Status is Observation. Condition is Fair. Problem is new. Symptoms have improved. chasity
[2020-05-06 02:17] LABS: ALT/SGPT 21 U/L (12-78); AST/SGOT 10 U/L (15-37); Albumin 3.1 g/dL (3.4-5.0); Alkaline Phosphatase 129 U/L (45-117); BUN Blood Urea Nitrogen 9 mg/dL (7-18); Bicarbonate 27 mmol/L (21-32); Bilirubin Direct 0.2 mg/dL (0-0.2); Bilirubin Total 0.5 mg/dL (0.2-1.0); Lipase 112 U/L (73-393); Magnesium 1.7 mg/dL (1.8-2.4); Potassium 4.2 mmol/L (3.5-5.1); Protein, Total 7.4 g/dL (6.4-8.2); Sodium Level 128 mmol/L (136-145); Troponin (Emerg Dept Use Only) < 0.02 ng/mL (0.0-0.045)
[2020-05-06 02:32] LABS: Glucose Level 631 mg/dL (74-106)
--- NOTE | 2020-05-06 03:04 | P.HP ---
Certification for Inpatient Patient admitted to: Observation With expected LOS: <2 Midnights Patient will require the following post-hospital care: None Practitioner: I am a practitioner with admitting privileges, knowledge of patient current condition, hospital course, and medical plan of care. Services: Services provided to patient in accordance with Admission requirements found in Title 42 Section 412.3 of the Code of Federal Regulations <Burton Jones - Last Filed: 05/06/20 02:54> Patient admitted to: Observation With expected LOS: <2 Midnights <Jac Barber - Last Filed: 05/06/20 08:19> Patient History Date of Service: 05/06/20 Primary Care Provider: Dr. Gonzalez, Ewelina- Dr. Gómez Reason for admission: Chest pain History of Present Illness: 49-year-old female with history of diabetes mellitus type 2-insulin dependent, uncontrolled, hypertension, hyperlipidemia, CVA, CAD with CABG x2 presents emergency department for 2 days of chest tightness. Patient reports pain feels similar to when she had her 1st heart attack. Patient admits to smoking cigarettes still at [id number], reports uncontrolled glucose. EKG without acute changes, chest x-ray unremarkable. Labs significant for sodium 128, chloride 93, glucose 631, GFR 44, creatinine 1.3, magnesium 1.7. Initial Troponin negative. In the emergency department patient was given Lovenox 1 milligram/kilogram subcutaneous, Plavix 75 mg p.o., aspirin 324, regular insulin 10 units IV and 10 units subcu, 2 L normal saline bolus, Pepcid 20 IV. When I saw the patient in the emergency department she is awake, alert, oriented x3. Patient reports that she last had 3 stents placed in July of this year, last CABG was 2 vessels in 2015, she did have 1 prior CABG that was 3 vessels. Will admit patient under observation for further evaluation and management of c hest pain. - Past Medical/Surgical History Diabetic: Yes -: Coronary artery disease -: Diabetes mellitus type 1 -: Chronic systolic congestive heart failure -: Hypertension -: CVA -: PAD -: triple bypass (heart) 2012 -: 2 C-Sections -: double bypass 2015 -: 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 -: Below knee amputation 2014 -: Above knee amputation 2014 -: Eye surgery for detached retina 2015 Psychosocial/ Personal History: Patient lives at home with her family - Family History Father -: Heart disease, Hypertension, Diabetes Notes: Pt's father of an CT Mother -: Other (see notes) Notes: hyperlipidemia Brother -: Diabetes Notes: Brother recently diagnosed in 2016 Sister -: Hypertension - Social History Smoking Status: Current every day smoker Smoking therapy provided: Yes Patient receptive to therapy: No Alcohol use: No CD- Drugs: No Caffeine use: Yes Place of Residence: Home <Burton Jones - Last Filed: 05/06/20 02:54> Date of Service: 05/06/20 Home medications list reviewed: Yes <Jac Barber - Last Filed: 05/06/20 08:19> Allergies tramadol Allergy (Mild, Verified 12/29/18 21:16) Hives/Rash adhesive tape Allergy (Verified 12/30/18 02:54) Hives ketorolac [From Toradol] Allergy (Verified 12/29/18 21:16) Hives/Rash Home Medications: Ranolazine [Ranexa] 500 mg PO BID 05/15/17 Aspirin 81 mg PO DAILY #30 tab.chew 05/16/17 Atorvastatin Calcium [Lipitor] 40 mg PO BEDTIME #30 tab 05/16/17 Clopidogrel Bisulfate [Plavix] 75 mg PO DAILY #30 tablet 05/16/17 Duloxetine HCl 30 mg PO DAILY #30 capsule. 05/16/17 Gabapentin 800 mg PO TID #120 tablet 05/16/17 levETIRAcetam [Levetiracetam] 500 mg PO BID #60 tablet 05/16/17 Pantoprazole [Protonix Tab*] 40 mg PO DAILY #30 tab 05/17/17 Insulin 70/30 NPH/Reg Human [Novolin 70/30*] 80 unit SQ BIDAC 12/30/18 Metformin HCl 1,000 mg PO BIDWM 12/30/18 Isosorbide Mononitrate [Isosorbide Mononitrate ER] 30 mg PO DAILY 12/31/18 Fluconazole 150 mg PO DAILY 08/12/19 Potassium Chloride 10 meq PO DAILY 08/12/19 Review of Systems 10-point ROS is otherwise unremarkable Cardiovascular: Chest Pain <Burton Jones - Last Filed: 05/06/20 02:54> Physical Examination - Physical Exam General: Alert, In no apparent distress HEENT: Atraumatic, PERRLA, Other (Mucous membranes dry) Neck: Supple, 2+ carotid pulse no bruit, No LAD Respiratory: Clear to auscultation bilaterally, Normal air movement Cardiovascular: Regular rate/rhythm, Normal S1 S2 Capillary refill: <2 Seconds Gastrointestinal: Normal bowel sounds, No tenderness Musculoskeletal: No tenderness, Other (Right BKA) Integumentary: No rashes Neurological: Normal speech, Normal strength at 5/5 x4 extr, Normal tone, Normal affect - Studies Laboratory Data (last 24 hrs) 05/06/20 01:10: WBC 9.5, Hgb 14.6, Hct 43.5, Plt Count 359 05/06/20 01:10: Sodium 128 L, Potassium 4.2, BUN 9, Creatinine 1.30, Glucose 631 H*, Magnesium 1.7 L, Total Bilirubin 0.5, AST 10 L, ALT 21, Alkaline Phosphatase 129 H, Lipase 112 05/06/20 00:54: Lipase Cancelled 05/06/20 00:54: Magnesium Cancelled, Total Bilirubin Cancelled, AST Cancelled, ALT Cancelled, Alkaline Phosphatase Cancelled <Burton Jones - Last Filed: 05/06/20 02:54> - Studies Laboratory Data (last 24 hrs) 05/06/20 01:10: WBC 9.5, Hgb 14.6, Hct 43.5, Plt Count 359 05/06/20 01:10: Sodium 128 L, Potassium 4.2, BUN 9, Creatinine 1.30, Glucose 631 H*, Magnesium 1.7 L, Total Bilirubin 0.5, AST 10 L, ALT 21, Alkaline Phosphatase 129 H, Lipase 112 05/06/20 00:54: Lipase Cancelled 05/06/20 00:54: Magnesium Cancelled, Total Bilirubin Cancelled, AST Cancelled, ALT Cancelled, Alkaline Phosphatase Cancelled <Jac Barber - Last Filed: 05/06/20 08:19> Assessment and Plan - Plan Assessment Chest pain rule out ACS CAD S/P CABG x2 Chronic systolic congestive heart failure Diabetes mellitus type 1 with hyperglycemia Hypertension Hyperlipidemia History of CVA Seizure disorder Plan Chest pain rule out ACS: NPO, monitor on telemetry. Patient given full-dose Lovenox and 324 aspirin in the emergency department. Trend troponins, cardiology consult in place. Continue Plavix, aspirin, beta-anuj, statin. DVT prophylaxis Lovenox 40 mg subcutaneous once per day. CAD S/P CABG x2: Continue home medications including aspirin, Plavix, statin. Chronic systolic congestive heart failure: Obtain and continue home medications, last ejection fraction was 33% in November 2019. Appears stable this time, patient appears dry. Diabetes mellitus type 1 with hyperglycemia: Patient given IV fluids and insulin in the emergency department, obtain A1c with morning labs. A.c. HS Accu-Cheks, sliding scale insulin therapy. Hypertension: Obtain and continue home medications Hyperlipidemia: Obtain and continue home medications History of CVA: Obtain and continue home medications Seizure disorder: Obtain and continue home medications Discharge Plan: Home Plan to discharge in: 24 Hours - Advance Directives Does patient have a Living Will: No Does patient have a Durable POA for Healthcare: No - Code Status/Comfort Care Code Status Assessed: Yes (Full code) Critical Care: No Time Spent Managing Pts Care (In Minutes): 55 <Burton Jones - Last Filed: 05/06/20 02:54> - Plan Case discussed in detail with nurse practitioner. Agree with evaluation, assessment and plan of care. Cardiac enzymes unremarkable. Case discussed in detail would cardiology. patient was significant CAD and prior CABG x2. Patient has inoperable CAD. Chest pain likely noncardiac. Cardiology recommended no further intervention at this time. Patient with history of neuropathy and cervical disease. Patient is to see Neurology in the near future. Will recommend to increase gabapentin. Will also recommend for the patient to see pain management to further evaluate her condition. Patient will continue with her other medications. 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 <Jac Barber - Last Filed: 05/06/20 08:19>
[2020-05-06] MEDS ORDERED: NA CHLORIDE 0.9% 2,000 ML ONE (03:07)
[2020-05-06] MEDS ORDERED: FAMOTIDINE 20 MG/2 ML VIAL IV ONE (03:07)
[2020-05-06] MEDS ORDERED: INSULIN -REGULAR HUMAN 50 UNIT/0.5 ML ML ONE ×2 (03:07→09:51)
[2020-05-06 03:19] LABS: NT PRO-BNP 768 pg/mL (<125)
[2020-05-06] MEDS ORDERED: MAGNESIUM SULFATE 1 gm IVPB 1 GM/100 ML BAG IV ONE (03:34)
[2020-05-06] MEDS ORDERED: ACETAMINOPHEN 500 MG TAB PO PRN (03:47)
[2020-05-06] MEDS ORDERED: NITROGLYCERIN 0.4 MG/TAB SL PRN (03:47)
[2020-05-06] MEDS ORDERED: NICOTINE 21 MG/PAT TD PRN (03:47)
[2020-05-06] MEDS ORDERED: ONDANSETRON 4 MG/2 ML VIAL IV PRN (03:47)
[2020-05-06] MEDS ORDERED: NA CHLORIDE 0.9% 1,000 ML IV SCH (03:47)
[2020-05-06 04:21] VITALS: BMI 26.9
[2020-05-06] MEDS ORDERED: MORPHINE 2 MG/ML SYR ONE ×2 (04:23→09:50)
[2020-05-06] MEDS: MORPHINE 2 MG/ML SYR IV PRN ×2 (04:37→09:30)
[2020-05-06] MEDS ORDERED: METOPROLOL TAR 25 MG TAB PO SCH (06:00)
[2020-05-06 06:13] LABS: Urine Appearance CLEAR; Urine Bilirubin NEGATIVE (NEG); Urine Blood NEGATIVE (NEG); Urine Color YELLOW; Urine Glucose 3+ (NEG); Urine Protein NEGATIVE (NEG); Urine Specific Gravity 1.025 (1.005-1.030)
[2020-05-06 06:14] LABS: Urine Microscopic Reflex NO UMIC
[2020-05-06 06:30] LABS: HDL Cholesterol 31 mg/dL (40-60); Troponin I < 0.02 ng/mL (0.0-0.045)
[2020-05-06 06:43] LABS: LDL, Direct 94 mg/dL (100-129)
--- NOTE | 2020-05-06 07:11 | EKG ---
Test Date: 2020-05-06 Test Time: 01:04:16 Song Lyricist: BHAVIN MEASUREMENT RESULTS: Intervals: Rate: 98 OK: 152 QRSD: 78 QT: 380 QTc: 485 [place]: P: 55 OK: 152 QRS: -10 T: 39 INTERPRETIVE STATEMENTS: Normal sinus rhythm Moderate voltage criteria for LVH, may be normal variant Cannot rule out Inferior infarct, age undetermined Anterior infarct, age undetermined Abnormal ECG Compared to ECG 12/24/2019 22:00:29 No significant changes Electronically Signed On 05-06-20 07:08:59 AQUATIC SCIENTIST by Griffin Mejia
[2020-05-06] MEDS ORDERED: INSULIN -REGULAR HUMAN 50 UNIT/0.5 ML ML SQ SCH (07:30)
[2020-05-06] MEDS ORDERED: GLUCAGON 1 MG/VIAL IM PRN (08:27)
[2020-05-06] MEDS ORDERED: D50W 25 GM/50 ML SYRINGE IV PRN (08:27)
--- NOTE | 2020-05-06 08:27 | P.DS ---
Admission Date: 05/06/20 Discharge Date: 05/06/20 Primary Care Provider: Dr. Gonzalez([facility]), Cards- Dr. Gómez([facility] Cardiology) Disposition: ROUTINE DISCHARGE Discharge Condition: GOOD Reason for Admission: Chest pain Consultations: Cardiology-Dr. Mejia Procedures: Medical problem list: Chest pain atypical with inoperable CAD/history of CABG times 2/prior cardiac stents Chronic systolic congestive heart failure, EF around 33% Diabetes mellitus type 2 with hyperglycemia insulin-dependent Hypertension Mixed hyperlipidemia History of CVA Seizure disorder Cervical disc disease with arthritis Brief History of Present Illness: 49-year-old female with multiple medical problems including inoperable CAD/history of CABG x2/prior cardiac stents, chronic systolic CHF, diabetes mellitus type 1, hyperlipidemia, hypertension, seizure disorder, and cervical disc disease. Patient presented with chest pain. It radiated to the left arm. She reports some numbness. This has been ongoing. Initial cardiac enzymes unremarkable. Patient reports that she is in process to see Neurology soon. Patient is seen at [facility] for her overall care including Cardiology. Hospital Course: Patient presented with chest pain. This was atypical. Cardiac enzymes unremarkable. Patient with significant inoperable CAD with prior history of CABG x2. She also has a history of cardiac stents. Patient gets her care at [facility] including Cardiology. Cardiology was consulted to further evaluate. Cardiology felt this was not cardiac related. No intervention was required or needed. At discharge patient will continue with her current medications including aspirin 81 mg daily, Plavix 75 mg daily, Lipitor 40 mg daily, metoprolol 25 mg 1 pill twice daily, Ranexa 500 mg 1 pill twice daily. Recommend follow up with cardiology at [facility] in 1-2 weeks to follow up this hospitalization. Tobacco cessation also address in detail. Patient plans to quit. Patient had left hand and nerve pain. Patient with cervical disc disease and arthritis. Patient to see Neurology in the near future to further evaluate. Patient takes Neurontin. Will recommend to increase Neurontin 900 mg 1 pill 3 times a day. Patient also takes Cymbalta 30 mg daily. Patient may benefit with pain management evaluation as an outpatient to further address and treat. This can be done with the help of her PCP. Patient with chronic systolic congestive heart failure. Previous echocardiogram shows EF around 33%. At discharge she will continue with a 1500 cc per day fluid restriction and low-salt diet. She is to monitor her weight daily. If her weight increases by more than 5 lb patient may require medication to help control her edema. Recommend follow up with cardiology to further monitor and address. Patient continue with her current medications metoprolol 25 mg 1 pill twice daily. Will check to see if patient is taking DK-inhibitor as well. Patient with hypertension. This appears stable at this time. At discharge she will continue with her current medication-metformin 1000 mg 1 pill twice daily and insulin 70/30 80 units subcu twice daily.. Recommend to maintain blood pressure less than 130/80. Further adjustment can be done by her PCP. Patient with mixed hyperlipidemia. Patient with LDL 94, total triglycerides 514. Will recommend to increase Lipitor to 80 mg daily. Will also recommend to add fish oil 1000 mg 1 pill twice daily. Recommend to recheck fasting lipid panel in 4-6 weeks to monitor her progress. Further adjustment can be done by her PCP or cardiology. Patient with seizure disorder. At discharge she will continue with Keppra 500 mg 1 pill twice daily. Recommend follow up with neurology as directed. Patient with GERD. At discharge she will continue with Protonix 40 mg daily. Patient with tobacco abuse. Tobacco cessation addressed in detail. Patient plans to quit. This can be further addressed and monitored by her PCP. Vital Signs/Physical Exam: Temp Pulse Resp BP Pulse Ox 98 F 84 19 142/75 H 100 05/06/20 04:00 05/06/20 06:00 05/06/20 05:07 05/06/20 06:00 05/06/20 05:07 General: Alert, In no apparent distress, Oriented x3, Cooperative HEENT: Atraumatic Neck: Supple Respiratory: Clear to auscultation bilaterally, Normal air movement Cardiovascular: Normal pulses, Regular rate/rhythm Gastrointestinal: Normal bowel sounds, No tenderness, No masses, No rebound, No guarding Musculoskeletal: No erythema, No tenderness, No warmth Integumentary: No erythema, No warmth, No cyanosis Neurological: Normal speech, Normal strength at 5/5 x4 extr, Normal tone, Normal affect Laboratory Data at Discharge: WBC 9.5 K/uL (4.3-10.9) 05/06/20 01:10 Hgb 14.6 g/dL (12.0-15.0) 05/06/20 01:10 Hct 43.5 % (36.0-45.0) 05/06/20 01:10 Plt Count 359 K/uL (152-406) 05/06/20 01:10 Sodium 128 mmol/L (136-145) L 05/06/20 01:10 Potassium 4.2 mmol/L (3.5-5.1) 05/06/20 01:10 BUN 9 mg/dL (7-18) 05/06/20 01:10 Creatinine 1.30 mg/dL (0.55-1.3) 05/06/20 01:10 Glucose 631 mg/dL (74-106) H* 05/06/20 01:10 Magnesium 1.7 mg/dL (1.8-2.4) L 05/06/20 01:10 Total Bilirubin 0.5 mg/dL (0.2-1.0) 05/06/20 01:10 AST 10 U/L (15-37) L 05/06/20 01:10 ALT 21 U/L (12-78) 05/06/20 01:10 Alkaline Phosphatase 129 U/L (45-117) H 05/06/20 01:10 Troponin I < 0.02 ng/mL (0.0-0.045) 05/06/20 05:26 Triglycerides 514 mg/dL (<150) H 05/06/20 05:26 Cholesterol 165 mg/dL (<200) 05/06/20 05:26 LDL Cholesterol Direct 94 mg/dL (100-129) L 05/06/20 05:26 HDL Cholesterol 31 mg/dL (40-60) L 05/06/20 05:26 Cholesterol/HDL Ratio 5.32 05/06/20 05:26 Lipase 112 U/L (73-393) 05/06/20 01:10 Home Medications: Ranolazine [Ranexa] 500 mg PO BID 05/15/17 Aspirin 81 mg PO DAILY #30 tab.chew 05/16/17 Atorvastatin Calcium [Lipitor] 40 mg PO BEDTIME #30 tab 05/16/17 Clopidogrel Bisulfate [Plavix] 75 mg PO DAILY #30 tablet 05/16/17 Duloxetine HCl 30 mg PO DAILY #30 capsule. 05/16/17 Gabapentin 800 mg PO TID #120 tablet 05/16/17 levETIRAcetam [Levetiracetam] 500 mg PO BID #60 tablet 05/16/17 Pantoprazole [Protonix Tab*] 40 mg PO DAILY #30 tab 05/17/17 Insulin 70/30 NPH/Reg Human [Novolin 70/30*] 80 unit SQ BIDAC 12/30/18 Metformin HCl 1,000 mg PO BIDWM 12/30/18 Isosorbide Mononitrate [Isosorbide Mononitrate ER] 30 mg PO DAILY 12/31/18 Fluconazole 150 mg PO DAILY 08/12/19 Potassium Chloride 10 meq PO DAILY 08/12/19 Diet: ADA Followup: Rodo Zavala MD [Primary Care Provider] -
--- NOTE | 2020-05-06 08:37 | RAD REPORT ---
EXAM DESCRIPTION: RAD - Chest Single View - 05/06/2020 1:19 am CLINICAL HISTORY: CHEST PAIN COMPARISON: Portable December 23 TECHNIQUE: AP portable chest image was obtained 05/06/2020 1:19 am . FINDINGS: Lung volumes are low but lung arnett are clear. Interstitial pattern matches comparison. S ternotomy wires are in place. Heart and vasculature are normal. No measurable pleural effusion and no pneumothorax. No acute bony abnormality seen. No acute aortic findings suspected. IMPRESSION: No acute cardiopulmonary process. No significant change from comparison study.
[2020-05-06] MEDS ORDERED: FOLIC ACID 1 MG TABLET PO SCH (09:00)
[2020-05-06] MEDS ORDERED: GABAPENTIN 300 MG CAP PO SCH (09:00)
[2020-05-06] MEDS ORDERED: GABAPENTIN 400 MG CAP PO SCH (09:00)
[2020-05-06] MEDS ORDERED: DULOXETINE 30 MG CAP PO SCH (09:00)
[2020-05-06] MEDS ORDERED: levETIRAcetam 500 MG TAB PO SCH (09:00)
[2020-05-06] MEDS ORDERED: ISOSORBIDE MONO SR 30 MG TAB PO SCH (09:00)
[2020-05-06] MEDS ORDERED: PANTOPRAZOLE 40MG TABLET PO SCH (09:00)
[2020-05-06] MEDS ORDERED: DOCOSAHEXANOIC AC/EPA 1000 MG PO SCH (09:00)
[2020-05-06] MEDS ORDERED: PANTOPRAZOLE 40MG TABLET PO ONE (09:50)
[2020-05-06] MEDS ORDERED: FOLIC ACID 1 MG TABLET ONE (09:50)
[2020-05-06] MEDS ORDERED: GABAPENTIN 300 MG CAP ONE (09:50)
[2020-05-06] MEDS ORDERED: levETIRAcetam 500 MG TAB ONE (09:51)
[2020-05-06 10:30] VITALS: BP 145/76; TEMP 97.5
[2020-05-06 11:33] VITALS: O2SAT 96
[2020-05-06 15:15] LABS: Urine Glucose 2+ (NEG); Urine Specific Gravity <1.005 (1.005-1.030)
[2020-05-06 15:16] LABS: Urine Blood TRACE (NEG); Urine Protein NEGATIVE (NEG); Urine pH 5.5 (5.0-7.0)
[2020-05-06] MEDS ORDERED: INSULIN 70/30 100 UNITS/ML SQ SCH (16:30)
[2020-05-06] MEDS ORDERED: ATORVASTATIN 80 MG TAB PO SCH (21:00)
[2020-05-06] MEDS ORDERED: ATORVASTATIN 40 MG TAB PO SCH (21:00)
[2020-05-07] MEDS ORDERED: CLOPIDOGREL 75 MG TABLET PO SCH (09:00)
[2020-05-07] MEDS ORDERED: ASPIRIN 81 MG CHEWABLE TABLET PO SCH (09:00)
[2020-05-07] MEDS ORDERED: ENOXAPARIN 40 MG/0.4 ML SQ SCH (09:00)
--- NOTE | 2020-05-10 14:17 | CON ---
Date of Consultation: 05/06/2020 Reason For Consultation: Admitted with atypical chest pain to Dr. Barber' service on 05/06/2020. I saw the patient on 05/06/2020. History Of Present Illness: Ms. Shah is a 49-year-old woman. She is known to us from many admiss ions and office visits. She has a complicated past history including history of CVA, seizure disorde rs. She has had a right pirpn-myx-viyi amputation. She has chronic ejection fraction of 33%, which is chronic systolic congestive heart failure. She has a history of diabetes, coronary artery disease , dyslipidemia, and gastroesophageal reflux disease. Came in really with atypical chest pain, mostly arm pain for a few days, more related to her body position and her hand position and then exertion. Denied PND, orthopnea, pedal edema, palpitation, or syncope. Denied any fever or chills or cough. Workup so far has ruled out myocardial infarction. Past Medical History: As stated above. Allergies: SHE IS ALLERGIC TO TRAMADOL, ADHESIVE TAPE AND KETOROLAC. Medications: At home include aspirin, Plavix, Lipitor, Neurontin, insulin, Imdur, metformin, Ranexa, Protonix, and Keppra. Review of Systems: Negative. Social History: Negative. Family History: Noncontributory. Physical Examination: General: She was pleasant, no acute distress. Vital Signs: Stable, afebrile, sinus rhythm. HEENT: Negative. Neck: Supple without any bruit, lymphadenopathy, JVD, or thyromegaly. Chest: Clear to auscultation and percussion. Cardiac: Revealed a regular rhythm and rate. No murmurs, gallops, or rubs. Abdomen: Benign. Extremities: Revealed no clubbing, cyanosis, or edema. She is status post right AKA. Diagnostic Data: Her glucose was 631. Creatinine is 1.3. Sodium is 128, secondary to hyperglycemia . Her EKG showed old inferior anterior [place] with left ventricular hypertrophy. Heart catheterization in 2017 showed that she has inoperable heart disease. She has had 2 separate bypass surgeries. She has been treated medically since. She is not a candidate for further cardiac intervention at this po int. Impression And Plan: 1.Atypical chest pain, most likely arm pain for a few days, positional. I think it is more related to cervical spondylosis. 2.History of coronary artery disease, status post coronary artery bypass graft x2, inoperable. 3.Diabetes. 4.Dyslipidemia. 5.Gastroesophageal reflux disease. 6.Seizure disorder. 7.History of cerebrovascular accident. 8.Peripheral arterial disease, status post right AKA. I would personally continue her present regim en. We will definitely take care of her very poorly controlled diabetes. From cardiac standpoint, I will continue Ranexa and Imdur. Cervical spine CT scan or MRI may be indicated. I will discuss the case further with Dr. Barber, but from my standpoint, she can go home whenever it is okay with him. QUIRINO/KANDIS Voice ID: [id number] Report ID: [id number]
== END 2020-05-06 11:20 | disposition home or self-care (01) ==
LOC: ER 00:45 → ERHOLD 03:32
PROVIDERS: ADMIT Family Medicine; ATTEND Family Medicine
DX: R07.89 Other chest pain (principal); I25.10 Atherosclerotic heart disease of native coronary artery without angina pectoris; Z95.1 Presence of aortocoronary bypass graft; I11.0 Hypertensive heart disease with heart failure; I50.22 Chronic systolic (congestive) heart failure; Z20.828 Contact with and (suspected) exposure to other viral communicable diseases; E10.65 Type 1 diabetes mellitus with hyperglycemia; E78.2 Mixed hyperlipidemia; Z95.5 Presence of coronary angioplasty implant and graft; G40.909 Epilepsy, unspecified, not intractable, without status epilepticus; M50.90 Cervical disc disorder, unspecified, unspecified cervical region; M47.812 Spondylosis without myelopathy or radiculopathy, cervical region; F17.210 Nicotine dependence, cigarettes, uncomplicated; Z86.73 Personal history of transient ischemic attack (TIA), and cerebral infarction without residual deficits; R94.31 Abnormal electrocardiogram [ECG] [EKG]; E10.51 Type 1 diabetes mellitus with diabetic peripheral angiopathy without gangrene; Z89.611 Acquired absence of right leg above knee
CPT/HCPCS: 96361; 93005; 85025; 80048; 36415; 83721; 83735; 81025; 80061; 82947 ×2; 85379; 80076; 81003 ×2; 84484 ×2; 83690; 83880; 71045; 96375; 96372; 96374; 99285; U0003; J3475; J2270 ×2; J7040; J7030; J2405 ×2; G0378 ×2

== ENCOUNTER 2020-06-01 23:19 | Emergency (ER) | payer OTHER ==
--- OUTSIDE RECORDS SUMMARY | 2020-06-01 23:22 | XMS REPORT | Continuity of Care Document ---
:1970 Author Organization [facility] t Address [address] [place] [address] Care Team Providers Name Role Phone Bennie Zavala MD Attending Clinician Problems Condition Condition Condition Status [...] with with l hyperglyce hyperglyce [facility] Type 2 Type [address] [facility] diabetes diabetes [facility] mellitus mellitus Memori a with other with other l specified specified Outp ati complicati complicati en t on on Clinics Hx of CABG Hx of CABG Problem Active [facility] Chronic Chronic Problem Active [facility] pain pain [facility] disorder disorder [facility] 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 [facility] current current [facility] - use of use of Memoria insulin insulin l [facility] Neuropathy Neuropathy Problem Active [facility] Depression Depression Problem Active [facility] with with [facility] - anxiety anxiety [facility] HTN HTN Problem Active [facility] (hypertens (hypertens Charley kes - ion), ion), Memoria benign benign l [facility] ent Clinics Seizures Seizures Problem Active [facility] Coronary Coronary Problem Active [facility] artery artery [facility] - disease disease Memoria involving involving l coronary coronary Outpat i bypass bypass ent graft of graft of Clinic [facility] [place] [facility] with heart with angina angina pectoris pectoris Dependent Dependent Problem Active [facility] on on [facility] - wheelchair wheelchair Me moria l [facility] ent Clinics History of History of Problem Active [facility] right right [facility] - above knee above knee Me moria amputation amputation l [facility] ent Clinics Allergies, Adverse Reactions, Alerts Allergy Allergy Status Severity Reaction(s) Onset Inactive Treating Comm ents Source Name Type Date Date Clinician Toradol Adverse Active Info Not [facility] Reaction Available [facility] tramadol Adverse Active Info Not [facility] Reaction Available [facility] Medications Ordered Filled Start Stop Current Ordering Indication Dosage Frequency Signature Comments Components Source Medication Medication Date Date Medication? Clinician (SIG) Name Name Atorarunatati Atorvastati Yes Dada [address] [facility] n Calcium n Calcium Horan [facility] - Memoria l [facility] Clinics Lexapro Lexapro Yes Dada [address] [facility] Horan [facility] Metoprolol Metoprolol Yes Dada [address] [facility] [address] Tartrate Tartrate Horan with food L ukes - Memoria l [facility] Clinics Ranexa Ranexa Yes Dada 1 tablet [facility] Insulin Insulin Yes Dada [address] Aspart Prot Aspart Prot Horan BID [facility] - & Aspart & Aspart Memoria l [facility] ent Clinics Aspirin Aspirin Yes Dada [address] [facility] [facility]an [facility] Gabapentin Gabapentin Yes Dada [address] [facility] Furosemide Furosemide Yes Dada [address] [facility] Duloxetine Duloxetine Yes Dada [address] [facility] HCl HCl Horan [facility] Xanax Xanax Yes Dada [address] [facility]an [facility]ics Clopidogrel Clopidogrel Yes Dada 1 [...] [facility] ent Clinics [place] Yes Dada [address] [facility] [address] Horan [...] Date/Time Type Type Clinicians Facility Department ID 2020-05-19 2020-05-19 Refill VICKI Zavala [id number] 00:00[id number] [place] [id number] Professio [phone] nal [address] 2020-05-08 2020-05-08 Office VICKI Zavala [id number] 13:10:21 13:58:56 Visit [employer]ocial [id number] [place] [id number] Professio [phone] nal [phone] Office [address] 2018-06-27 2018-06-27 [facility] [id number] 11:57:00 11:57:00 [place] [employer] [facility] - [address] [facility] Medicine Outpati ent Clinics 2018-06-15 2018-06-15 [facility] [id number] 16:24:00 16:24:00 t [place] [employer] s - Drive [facility] Medicine Outpati ent Clinics 2018-06-13 2018-06-13 [facility] [id number] 13:30:00 13:30:00 t [place] [employer] s - Drive [facility] Medicine Outpati ent Clinics 2017-12-12 2017-12-12 [facility] [id number] 13:22:00 13:22:00 t [place] [employer] - [employer] [facility] Medicine Outpati ent Clinics 2017-11-20 2017-11-20 [facility] [id number] 10:30:00 10:30:00 t [employer] - [address] [facility] Medicine Outpati ent Clinics 2017-11-02 2017-11-02 [facility] [id number] 15:15:00 15:15:00 t [employer] - [address] [facility] Medicine Outpati ent Clinics Results This patient has no known results.
--- OUTSIDE RECORDS SUMMARY | 2020-06-01 23:24 | XMS REPORT | Summary of Care ---
:1970 Author Organization [facility] - Health Address [address] [place] [address] Care Team Providers Name Role Phone Fabby Meléndez Kylah Unavailable Bennie Zavala MD Primary Care Provider Eligio Garsia MD Unavailable Encounter Details Date Type Department Care Team Description 05/08/2020 Orders Only [facility] Doctor Unassigned, No [address] [facility] [place] [address] [address] [place] [address] Allergies Active Allergy Reactions Severity Noted Date Comments Ketorolac Tromethamine Hives 12/15/2016 Tramadol Hives 12/15/2016 documented as of this encounter (statuses as of 05/08/2020) Medications Medication Sig Dispensed Refills Start Date [...] mouth at Coronary artery disease bedtime. involving [place] coronary artery of [place] heart without angina pectoris metoprolol succinate XL Take 1 tablet by 30 tablet 11 0 Active 100 mg 24 hr mouth daily. tabletIndications: Coronary artery disease involving [place] coronary artery of [place] heart without angina pectoris DULOXETINE 30 mg [...] tabletIndications: mouth every 12 Vulvovaginitis (twelve) hours. clotrimazole-betamethas Apply to 15 g 0 04/03/2020 Active one creamIndications: area(s) 2 (two) Vulvovaginitis times daily. Use for 2 weeks on affected area Nitrofurantoin&Nit. Take 1 capsule 20 capsule 0 04/07/2020 Active Macrocryst (MACROBID) by mouth 2 (two) 100 mg times daily. capsuleIndications: Urinary tract infection without hematuria, site unspecified gabapentin 800 mg Take 1 tablet by 90 tablet 0 04/13/2020 Active tabletIndications: mouth 3 (three) Neuropathy times daily. PANTOPRAZOLE 40 mg EC TAKE 1 TABLET BY 30 tablet 0 04/15/2020 Active tabletIndications: MOUTH ONCE DAILY Gastroesophageal reflux DO NOT CRUSH disease OR CHEW FUROSEMIDE 20 mg Take 1 tablet by 90 tablet 0 04/15/2020 Active tabletIndications: mouth once daily Congestive heart failure, unspecified HF chronicity, unspecified heart failure type POTASSIUM CHLORIDE 10 Take 1 tablet by 30 tablet 0 04/15/2020 Active mEq CR mouth once daily tabletIndications: Hypokalemia methocarbamoL 500 mg Take 1 tablet by 40 tablet 0 05/08/2020 Active tabletIndications: mouth 4 (four) Chronic hip pain, left, times daily as Left-sided low back needed (muscle pain with left-sided spasm). sciatica, unspecified chronicity documented as of this encounter (statuses as of 05/08/2020) Active Problems Problem Noted Date Obesity (BMI 30-39.9) 08/12/2019 Chest pain 08/12/2019 Coronary artery disease involving [place] coronary radha ry of [place] heart 08/05/2019 without angina pectoris PAD (peripheral artery disease) 08/05/2019 Chronic heart failure with preserved ejection fraction 08/05/2019 GARY (stress urinary incontinence, female) 02/02/2018 Overview: Added automatically from request for tate stone [id number] GERD (gastroesophageal reflux disease) DM (diabetes mellitus) Depression CVA (cerebral vascular accident) CHF (congestive heart failure) Anxiety Angina pectoris H/O right coronary artery stent placement High cholesterol HTN (hypertension) Hx of CABG Migraines Seizures Unilateral AKA, right documented as of this encounter (statuses as of 05/08/2020) Social History Tobacco Use Types Packs/Day Years Used Date Current Every Day Smoker Cigarettes 1 Smokeless Tobacco: Never Used Comments: smoking since 14 years old Alcohol Use Drinks/Week oz/Week Comments Not Currently rare Sex Assigned at Date Recorded Not on file COVID-19 Exposure Response Date Recorded In the last month, have you been in contact with No / Unsure 05/08/2020 1:24 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 documented as of this encounter Last Filed Vital Signs Not on filedocumented in this encounter Plan of Treatment Date Type Specialty Care Team Description 05/08/2020 Appointment Radiology Dev Zavala MD [address] [place] [address] 05/28/2020 Office Visit Family Medicine eDv Zavala MD [address] [place] [address] 09/04/2020 Office Visit Endocrinology Diabetes & Anatoly Chapin MD Metabolism [address] [address] 15 [phone] Health Maintenance Due Date Last Done Comments PNEUMOCOCCAL 0-64 YEARS 1978 COMBINED SERIES (1 of 1 - PPSV23) EYE EXAM 1982 DTaP,Tdap,and Td Vaccines 1991 (1 - Tdap) URINE MICROALBUMIN 09/01/2019 08/31/2018, 05/19/2017 LDL-C 03/26/2020 03/26/2019 FOOT EXAM 05/10/2020 05/10/2019, 05/10/2019, 01/04/2019, Additional history exists HgA1C 07/12/2020 01/10/2020, 08/13/2019, 05/10/2019, Additional history exists CREATININE (SERUM) 08/15/2020 08/16/2019, 08/15/2019, 08/14/2019, Additional history exists PAP SMEAR 09/25/2020 09/25/2017 Breast Cancer Screening 10/31/2020 11/01/2019, 11/06/2017 (MAMMOGRAM) INFLUENZA VACCINE (#1) 2020 Postponed from 01/28/2020 (Refu sed) Depression Screening 05/08/2021 05/08/2020 Colorectal Cancer Screening 2022 documented as of this encounter Procedures Procedure Name Priority Date/Time Associated Diagnosis Comme nts ASSIGNMENT OF BENEFITS Routine 05/08/2020 2:39 PM 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 Medicare A & B nt 2 [id number] [place] [id number] documented as of this encounter
--- OUTSIDE RECORDS SUMMARY | 2020-06-01 23:25 | XMS REPORT | Summary of Care ---
:1970 Author Organization [facility] Address [address] [place] [id number] Care Team Providers Name Role Phone Fabby Meléndez Kylah Unavailable Bennie Costa MD Primary Care Provider Eligio Garsia MD Unavailable Reason for Referral Radiology Services (Routine) Status Reason Specialty Diagnoses / Referred By Referred To Procedures Contact Contact Closed Diagnostic Diagnoses Chronic hip pain, left Left-sided low back pain with left-sided sciatica, unspecified chronicity Lucas, Radiology Procedures XR HIPS 2 VW LEFT Dev Avery MD [address] [place] [address] [place] [address] Reason for Visit Auth/Cert Status Reason Specialty Diagnoses / Procedures Referred By Heath leyva Referred To Contact Radiology [facility] [address] [place] [address] Phone: Fax: Encounter Details Date Type Department Care Team Description 05/08/2020 Hospital Encounter formerly [facility] Ish Costa Arrived [facility] [address] [facility] Dr edmond [address] [place] [address] [place] [address] [place] [address] [phone] Allergies Active Allergy Reactions Severity Noted Date Comments Ketorolac Tromethamine Hives 12/15/2016 Tramadol Hives 12/15/2016 documented as of this encounter (statuses as of 05/09/2020) Medications Medication Sig Dispensed Refills Start Date [...] mouth at Coronary artery disease bedtime. involving three affiliated coronary artery of three affiliated heart without angina pectoris metoprolol succinate XL Take 1 tablet by 30 tablet 11 0 Active 100 mg 24 hr mouth daily. tabletIndications: Coronary artery disease involving three affiliated coronary artery of three affiliated heart without angina pectoris DULOXETINE 30 mg [...] as of this encounter (statuses as of 05/09/2020) Active Problems Problem Noted Date Obesity (BMI 30-39.9) 08/12/2019 Chest pain 08/12/2019 Coronary artery disease involving three affiliated coronary radha ry of three affiliated heart 08/05/2019 without angina pectoris PAD (peripheral artery disease) 08/05/2019 Chronic heart failure with preserved ejection fraction 08/05/2019 GARY (stress urinary incontinence, female) 02/02/2018 Overview: Added automatically from request for tate bertha [id number] GERD (gastroesophageal reflux disease) DM (diabetes mellitus) Depression CVA (cerebral vascular accident) CHF (congestive heart failure) Anxiety Angina pectoris H/O right coronary artery stent placement High cholesterol HTN (hypertension) Hx of CABG Migraines Seizures Unilateral AKA, right documented as of this encounter (statuses as of 05/09/2020) Social History Tobacco Use Types Packs/Day Years Used Date Current Every Day Smoker Cigarettes 1 Smokeless Tobacco: Never Used Comments: smoking since 14 years old Alcohol Use Drinks/Week oz/Week Comments Not Currently rare Sex Assigned at Date Recorded Not on file COVID-19 Exposure Response Date Recorded In the last month, have you been in contact with No / Unsure 05/08/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 sciatica, unspecified chronicity XR LUMBAR SPINE 4 Routine 05/08/2020 3:19 PM Chronic hip pain , Results for this VW INS[employer]ANCE SALESPERSON left procedure are in Left-sided low back the resu lts pain with left-sided section . sciatica, unspecified chronicity documented in this encounter Results XR LUMBAR SPINE 4 VW (05/08/2020 3:19 PM INSURANCE SALESPERSON) Specimen Narrative Performed At XR LUMBAR SPINE 4 VW PACS/VR/DOSE HISTORY: Female 49 years 49yo F with lef t hip area pain and left buttock pain. Known lumbar DDD/DJD. COMPARISON: None FINDINGS: The vertebral bodies are normal in heigh t and in normal alignment. No more than minimal degenerative change s are present. Peak radiographs demonstrate no evidence of spondylolysis . A small radiodensity overlying the lower pole of the l eft kidney probably represents a small renal calculus. 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 Known lumbar DDD/DJD. COMPARISON: None FINDINGS: The vertebral bodies are normal in heigh t and in normal alignment. No more than minimal degenerative change s are present. Peak radiographs demonstrate no evidence of spondylolysis . A small radiodensity overlying the lower pole of the left kidney probably represents a small renal calculus. Performing Organization Address City/State/Zipcode Phone Number PACS/VR/DOSE XR HIPS 2 VW LEFT (05/08/2020 3:19 PM INSURANCE SALESPERSON) Specimen Impressions Performed At Impression: Moderate osteoarthritis of t he left hip joint space without PACS/VR/DOSE evidence of fracture visualized. RL: [id number] Narrative Performed At This result has an attachment that is no t available. Clinical indication: Severe acute on chronic hip pain status post fall 2 PACS/VR/DOSE days ago. Ordering Physician: DVE COSTA Findings: AP and frog-leg lateral views of the left hi p are provided. There is diffuse narrowing of the left hip joint space with large marginal osteophytes noted. The visualized osseous structures are in normal anatom ic alignment without evidence acute fracture, subluxation or dislocation. The subcutaneous tissue are unremarkable. No radiopaque foreign bodies are identified. Procedure Note [facility], Radiant Results Inft User - 2019 4:35 PM INSURANCE SALESPERSON Clinical indication: Severe acute on chronic hip pain status post fall 2 days ago. Ordering Physician: DEV COSTA Findings: AP and frog-leg lateral views of the left hip are provided. There is diffuse narrowing of the left hip leda nt space with large marginal osteophytes noted. The visualized osseous structures are in normal anatomic alignment without evidence acute fracture, subluxation or dislocation. The subcutaneous tissue are unremarkable. No radiopaque f oreign bodies are identified. IMPRESSION Impression: Moderate osteoarthritis of t he left hip joint space without evidence of fracture visualized. RL: [id number] Performing Organization Address City/State/Zipcode Phone Number PACS/VR/DOSE documented in this encounter Visit Diagnoses Diagnosis Chronic hip pain, left Left-sided low back pain with left-sided sciatica, unspecified chronicity documented in this encounter Insurance Payer Benefit Plan / Subscriber ID Effective Dates Phone Addre ss Type Group MEDICARE MEDICARE PART [id number] 2017-Justin [phone] Medicare [place] & [place] 2 [id number] [place] [phone] [id number] 1 Trevin pfeiffer (Home) . [address] [address] documented as of this encounter
--- OUTSIDE RECORDS SUMMARY | 2020-06-01 23:26 | XMS REPORT | Summary of Care ---
:[address] [facility] Address [address] [place] [id number] Care Team Providers Name Role Phone Jelena Meléndezra Montero Unavailable Bennie Costa MD Primary Care Provider Eligio Garsia MD Unavailable Reason for Referral (STAT) Status Reason Specialty Diagnoses / Referred By Referred To Procedures Contact Contact Authorized Location Pain Medicine Diagnoses Chronic hip pain, left Chronic left-sided low back pain with left-sided sciatica Ami Costa, Preference Procedures CONSULT/REFERRAL PAIN CLINIC MD Gary Claros MD [address] [place] [address] [address] [facility] [address] [place] [address] [address] [id number] [place], [place] Phone: [phone] Phone: Radiology Services (Routine) Status Reason Specialty Diagnoses / Referred By Referred To Procedures Contact Contact Closed Diagnostic Diagnoses Chronic hip pain, left Left-sided low back pain with left-sided sciatica, unspecified chronicity Lucas, Radiology Procedures XR HIPS 2 VW LEFT Dev Avery MD [address] [place] [address] [place] [id number] Reason for Visit Reason Comments Hip Pain left hip pain, pain radiates down left leg Auth/Cert Status Reason Specialty Diagnoses / Procedures Referred By Heath leyva Referred To Contact Radiology Adc X-Ray [address] [facility] [place] [address] Phone: Fax: Encounter Details Date Type Department Care Team Description 05/08/2020 Office Visit [facility] Family Dev Costa Acut e on chronic hip pain, left (Primary Dx); Medicine - Shruthi Avery MD Acute on chronic left-sided low back raza n with left-sided sciatica [address] [facility] [address] [facility] [address], [place] [phone] Allergies Active Allergy Reactions Severity Noted Date Comments Ketorolac Tromethamine Hives 12/15/2016 Tramadol Hives 12/15/2016 documented as of this encounter (statuses as of 2020) Medications Medication Sig Dispensed Refills Start Date End Date Status nitroglycerin 0.4 mg 1 tab SL q5min [...] mouth at Coronary artery bedtime. disease involving ely shoshone coronary artery of ely shoshone heart without angina pectoris metoprolol succinate Take 1 tablet 30 tablet 11 08/17/2019 Active XL 100 mg 24 hr by mouth tabletIndications: daily. Coronary artery disease involving ely shoshone coronary artery of ely shoshone heart without angina pectoris metFORMIN 500 mg Take 2 tablets 360 tablet 1 12/05/2019 Active tablet by mouth 2 (two) times daily with meals. clotrimazole-betameth Apply to 15 g 0 04/03/2020 Active asone area(s) 2 creamIndications: (two) times Vulvovaginitis daily. Use for 2 weeks on affected area gabapentin 800 mg Take 1 tablet 90 [...] CR by mouth once tabletIndications: daily Hypokalemia methocarbamoL 500 mg Take 1 tablet 40 tablet 0 05/08/2020 Active tabletIndications: by mouth 4 Chronic hip pain, (four) times left, Chronic daily as left-sided low back needed (muscle pain with left-sided spasm). sciatica albuterol 90 Inhale 2 Puffs 1 Inhaler 1 03/26/2019 05/16/20 D iscontinued mcg/actuation every 6 (six) 20 inhalerIndications: hours as Persistent cough, needed for Tobacco use, Wheezing Wheezing or Shortness of Breath. DULOXETINE 30 mg Take 1 capsule 30 capsule 2 12/05/2019 Discontinued capsuleIndications: by mouth once 20 Anxiety and daily depression, Peripheral neuropathic pain metroNIDAZOLE 500 mg Take 1 tablet 14 tablet 0 04/03/202004/28 Discontinued tabletIndications: by mouth every 20 Vulvovaginitis 12 (twelve) hours. Nitrofurantoin&Nit. Take 1 capsule 20 capsule 0 04/07/2020 Discontinued Macrocryst (MACROBID) by mouth 2 20 100 mg (two) times capsuleIndications: daily. Urinary tract infection without hematuria, site unspecified documented as of this encounter (statuses as of 2020) Active Problems Problem Noted Date Chronic hip pain, left 05/13/2020 Osteoarthritis of left hip, unspecified osteoarthritis type 05/13/2020 Obesity (BMI 30-39.9) 08/12/2019 Chest pain 08/12/2019 Coronary artery disease involving ely shoshone coronary radha ry of ely shoshone heart 08/05/2019 without angina pectoris PAD (peripheral artery disease) 08/05/2019 Chronic heart failure with preserved ejection fraction 08/05/2019 GARY (stress urinary incontinence, female) 02/02/2018 Overview: Added automatically from request for tate stone [id number] GERD (gastroesophageal reflux disease) DM (diabetes mellitus) Depression CVA (cerebral vascular accident) CHF (congestive heart failure) Anxiety Angina pectoris H/O right coronary artery stent placement High cholesterol HTN (hypertension) Hx of CABG Migraines Seizures Unilateral AKA, right documented as of this encounter (statuses as of 2020) Social History Tobacco Use Types Packs/Day Years Used Date Current Every Day Smoker Cigarettes 1 Smokeless Tobacco: Never Used Comments: smoking since 14 years old Alcohol Use Drinks/Week oz/Week Comments Not Currently rare Sex Assigned at Date Recorded Not on file COVID-19 Exposure Response Date Recorded In the last month, have you been in contact with No / Unsure 05/08/2020 1:24 PM ROD WELDER someone who was confirmed or 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 documented as of this encounter Last Filed Vital Signs Vital Sign Reading Time Taken Comments Blood Pressure 128/80 05/08/2020 1:29 PM ROD WELDER Pulse 82 05/08/2020 1:29 PM ROD WELDER Temperature 36.4 C (97.5 F) 05/08/2020 1:29 PM ROD WELDER Respiratory Rate - - Oxygen Saturation - - Inhaled Oxygen Concentration - - Weight 68 kg (150 lb) 05/08/2020 1:29 PM ROD WELDER Height 162.6 cm (5' 4") 05/08/2020 1:29 PM ROD WELDER Body Mass Index 25.75 05/08/2020 1:29 PM ROD WELDER documented in this encounter Patient Instructions Patient InstructionsDev Costa MD - 05/08/2020 1:15 PM ROD WELDER Patient Education Understanding Lumbar Radiculopathy Lumbar radiculopathy is irritation or inflammation of a nerve root in the low back. It causes symptoms that spread out from the back down one or both legs. To understand this condition, it helps to understand the parts of the spine: Vertebrae. These are bones that stack to form the spine. The lumbar spine contains 5 vertebrae near the bottom of your spine. Disks. These are soft pads of tissue between the vertebrae. They act as shock absorbers for the spine. Spinal canal. This is a tunnel formed within the stacked vertebrae. In the lumbar spine, nerves run through this canal. Nerves. These branch off and leave the spinal canal, traveling out to parts of the body. As they leave the spinal canal, nerves pass through openings between the vertebrae. The nerve root is the part of the nerve that is closest to the spinal canal. Sciatic nerve. This is a large nerve formed from several nerve roots in the low back. This nerve extends down the back of the leg to the foot. With lumbar radiculopathy, nerve roots in the low back become irritated. This leads to pain and symptoms. The sciatic nerve is commonly involved, so the condition is often called sciatica. What causes lumbar radiculopathy? Aging, injury, poor posture, extra body weight, and other issues can lead to problems in the low back. These problems may then irritate nerve roots. They include: Damage to a disk in the lumbar spine. The damaged disk may then press on nearby nerve roots. Degeneration from wear and tear, and aging. This can lead to narrowing (stenosis) of the openingsbetween the vertebrae. The narrowed openings press on nerve roots as they leave the spinal canal. Unstable spine. This is when a vertebra slips forward. It can then press on a nerve root. Other, less common things can put pressure on nerves in the low back. These include diabetes, infection, or a tumor. Symptoms of lumbar radiculopathy These include: Pain in the low back Pain, numbness, tingling, or weakness that travels into the buttocks, hip, groin, or leg Muscle spasms in the low back, or leg Treatment for lumbar radiculopathy In most cases, your healthcare provider will first try treatments that help relieve symptoms. These may include: Prescription and minr-azk-ndfyhnt pain medicines. These help relieve pain, swelling, and irritation. Limits on positions and activities that increase pain. But lying in bed or avoiding all movement is only recommended for a short period of time. Physical therapy, including exercises and stretches. This helps decrease pain and increase movement and function. Steroid shots into the lower back. This may help relieve symptoms for a time. Weight-loss program. If you are overweight, losing extra pounds (kilograms)may help relieve symptoms. In some cases, you may need surgery to fix the underlying problem. This depends on the cause, the symptoms, and how long the pain has lasted. Possible complications Over time, an irritated and inflamed nerve may become damaged. This may lead to long-lasting (permanent) numbness or weakness in your legs and feet. If symptoms change suddenly or get worse, be sure tolet your healthcare provider know. When to call your healthcare provider Call your healthcare provider right away if you have any of these: New pain or pain that gets worse New or increasing weakness, tingling, or numbness in your leg or foot Problems controlling your bladder or bowel Leslie last reviewed this educational content on 06/29/201919991096-5598 [employer]. All rights reserved. This information is not intended as a substitute for professional medical care. Always follow your healthcare professional's instructions. Patient Education Understanding Trochanteric Bursitis A bursa is a thin, slippery, sac-like film. It contains a small amount of fluid. This structure is found between bones and soft tissues in and around joints. A bursa cushions and protects a joint. It keeps parts of a joint from rubbing against each other. If a bursa becomes inflamed and irritated, it's known as bursitis. The trochanteric bursa is found on the hip joint. It lies on top of the bump at the top of the thighbone called the greater trochanter. Inflammation of this bursa is called trochanteric bursitis. How to say it [id number] Causes of trochanteric bursitis Causes may include: Overuse of the hip during running or other sports, dance, or work Falling on or irritation to the side of the hip This condition may occur along with other problems, such as osteoarthritis of the hip or knee, or low back problems. In rare cases, it may occur after hip surgery. Symptoms of trochanteric bursitis Pain or aching on the side of the hip. It's often felt as a sharp, intense pain. The pain may travel down the leg. Swelling, tenderness, or warmth on the side of the hip at the bony bump at the top of the thigh Treatment for trochanteric bursitis These may include: Resting the hip. This allows the bursa to heal. Prescription or vyys-vrz-jnepaqp pain medicines. These help reduce inflammation, swelling, and pain. NSAIDs (nonsteroidal anti-inflammatory drugs) are the most common medicines used. Medicines may be prescribed or bought over the counter. They may be given as pills. Or they may be put on the skin as a gel, cream, or patch. Cold packs and heat packs. These help reduce pain and swelling. Stretching and strengthening exercises. These improve flexibility and strength around the hip. Physical therapy. This includes exercises or other treatments. Injections of medicine into the bursa. This may help reduce inflammation and relieve symptoms. The medicine is usually a corticosteroid. This is a strong anti-inflammatory medicine. Possible complications If you dont give your hip time to heal, the problem may not go away, may return, or may get worse. Rest and treat your hip as directed. When to call your healthcare provider Call your healthcare provider right away if you have any of these: Fever of 100.4F (38C) or higher, or as directed by your provider Redness, swelling, or warmth that gets worse Symptoms that dont get better with prescribed medicines, or get worse New symptoms Leslie last reviewed this educational content on 10/27/201819998390-2153 [employer]. All rights reserved. This information is not intended as a substitute for professional medical care. Always follow your healthcare professional's instructions. Patient Education Understanding Lumbar Radiculopathy Lumbar radiculopathy is irritation or inflammation of a nerve root in the low back. It causes symptoms that spread out from the back down one or both legs. To understand this condition, it helps to understand the parts of the spine: Vertebrae. These are bones that stack to form the spine. The lumbar spine contains 5 vertebrae near the bottom of your spine. Disks. These are soft pads of tissue between the vertebrae. They act as shock absorbers for the spine. Spinal canal. This is a tunnel formed within the stacked vertebrae. In the lumbar spine, nerves run through this canal. Nerves. These branch off and leave the spinal canal, traveling out to parts of the body. As they leave the spinal canal, nerves pass through openings between the vertebrae. The nerve root is the part of the nerve that is closest to the spinal canal. Sciatic nerve. This is a large nerve formed from several nerve roots in the low back. This nerve extends down the back of the leg to the foot. With lumbar radiculopathy, nerve roots in the low back become irritated. This leads to pain and symptoms. The sciatic nerve is commonly involved, so the condition is often called sciatica. What causes lumbar radiculopathy? Aging, injury, poor posture, extra body weight, and other issues can lead to problems in the low back. These problems may then irritate nerve roots. They include: Damage to a disk in the lumbar spine. The damaged disk may then press on nearby nerve roots. Degeneration from wear and tear, and aging. This can lead to narrowing (stenosis) of the openingsbetween the vertebrae. The narrowed openings press on nerve roots as they leave the spinal canal. Unstable spine. This is when a vertebra slips forward. It can then press on a nerve root. Other, less common things can put pressure on nerves in the low back. These include diabetes, infection, or a tumor. Symptoms of lumbar radiculopathy These include: Pain in the low back Pain, numbness, tingling, or weakness that travels into the buttocks, hip, groin, or leg Muscle spasms in the low back, or leg Treatment for lumbar radiculopathy In most cases, your healthcare provider will first try treatments that help relieve symptoms. These may include: Prescription and dcam-jxp-xzddvin pain medicines. These help relieve pain, swelling, and irritation. Limits on positions and activities that increase pain. But lying in bed or avoiding all movement is only recommended for a short period of time. Physical therapy, including exercises and stretches. This helps decrease pain and increase movement and function. Steroid shots into the lower back. This may help relieve symptoms for a time. Weight-loss program. If you are overweight, losing extra pounds (kilograms)may help relieve symptoms. In some cases, you may need surgery to fix the underlying problem. This depends on the cause, the symptoms, and how long the pain has lasted. Possible complications Over time, an irritated and inflamed nerve may become damaged. This may lead to long-lasting (permanent) numbness or weakness in your legs and feet. If symptoms change suddenly or get worse, be sure tolet your healthcare provider know. When to call your healthcare provider Call your healthcare provider right away if you have any of these: New pain or pain that gets worse New or increasing weakness, tingling, or numbness in your leg or foot Problems controlling your bladder or bowel JosephTa last reviewed this educational content on 06/29/201919993098-4570 [employer]. All rights reserved. This information is not intended as a substitute for professional medical care. Always follow your healthcare professional's instructions. WELDER documented in this encounter Progress Notes Dev Costa MD - 05/08/2020 1:15 PM CST CC: Chief Complaint Patient presents with Hip Pain left hip pain, pain radiates down left leg HPI Karen Shah is a 49 year old F who presents for acute on chronic left hip pain (pain present more than a year but has been worse lately). She also has left LBP radiating into her left buttock. Her pain has been worse since a fall 2 days ago at home. The pain is constant but fluctuates in severity and is very severe with standing. No relief with gabapentin and she isn't using any PRN OTC painmeds. She is interested in having definitive tx for whatever is affecting her hip. She was diagnosed with OA in the past and was under the care of Orthopaedics and Pain Management last year but she was lost to f/u. She say she needs help with managing her severe hip pain and is interested in re-esta blishing with Pain management soon. Allergies Allergen Reactions Toradol [Ketorolac Tromethamine] Hives Tramadol Hives Current Outpatient Medications: FUROSEMIDE 20 mg tablet, Take 1 tablet by mouth once daily, Disp: 90 tablet, Rfl: 0 gabapentin 800 mg tablet, Take 1 tablet by mouth 3 (three) times daily., Disp: 90 tablet, Rfl: 0 PANTOPRAZOLE 40 mg EC tablet, TAKE 1 TABLET BY MOUTH ONCE DAILY DO NOT CRUSH OR CHEW, Disp:30 tablet, Rfl: 0 POTASSIUM CHLORIDE 10 mEq CR tablet, Take 1 tablet by mouth once daily, Disp: 30 tablet, Rfl: 0 clotrimazole-betamethasone cream, Apply to area(s) 2 (two) times daily. Use for 2 weeks on affected area, Disp: 15 g, Rfl: 0 metFORMIN 500 mg tablet, Take 2 tablets by mouth 2 (two) times daily with meals., Disp: 360 tablet, Rfl: 1 aspirin 81 mg chewable tablet, Take 1 tablet by mouth daily., Disp: 90 tablet, Rfl: 3 atorvastatin 80 mg tablet, Take 1 tablet by mouth at bedtime., Disp: 30 tablet, Rfl: 11 clopidogreL (PLAVIX) 75 mg tablet, Take 1 tablet by mouth daily., Disp: 30 tablet, Rfl: 11 insulin NPH and regular human 70-30 (NOVOLIN 70/30 U-100 INSULIN) 100 unit/mL (70-30) injection, Inject 84 units AM, 84 units PM, Disp: 6 Vial, Rfl: 3 metoprolol succinate XL 100 mg 24 hr tablet, Take 1 tablet by mouth daily., Disp: 30 tablet, Rfl: 11 isosorbide mononitrate 30 mg 24 hr tablet, Take 1 tablet by mouth daily., Disp: 90 tablet, Rfl:1 nitroglycerin 0.4 mg sublingual tablet, 1 tab SL q5min up to 3 doses PRN chest pain, then activate 911., Disp: 25 tablet, Rfl: 0 Past Medical History: Diagnosis Date Angina pectoris Anxiety CHF (congestive heart failure) Coronary artery disease involving ely shoshone coronary artery of ely shoshone heart without angina pectoris08/05/2019 CVA (cerebral vascular [...] NoFHx Neurological NoFHx Psychiatry NoFHx Osteoporosis NoFHx Social History Socioeconomic History Marital status: Spouse [...] old Substance and Sexual Activity Alcohol use: Not Currently Comment: rare Drug use: Never Sexual activity: Yes Partners: Male control/protection: Surgical Lifestyle Physical activity Days per week: Not on file Minutes per session: Not on file Stress: Not on file Relationships Social connections Talks on phone: Not on file Gets together: Not on file Attends lutheran service: Not on file Active member of [...] History Narrative No domestic abuse or violence. Hoahaoism Preference ; none Review of Systems Constitutional: Negative. Respiratory: Negative. Cardiovascular: Negative. Genitourinary: Negative. Musculoskeletal: Positive for arthralgias, back pain and gait problem. Skin: Negative. Psychiatric/Behavioral: Negative. Vital signs BP 128/80 | Pulse 82 | Temp 36.4 C (97.5 F) (Tympanic) | Ht 5' 4" (1.626 m) | Wt 150 lb (68 kg) | BMI 25.75 kg/m Physical Exam Vitals signs and nursing note reviewed. Musculoskeletal: Left hip: She exhibits decreased range of motion, tenderness and bony tenderness. She exhibits nocrepitus. Lumbar back: She exhibits decreased range of motion, tenderness and pain. Back: Legs: Feet: Right foot: Amputation: Right leg is amputated above knee. Neurological: Mental Status: She is alert. Gait: Gait abnormal. LABS: CBC CMP WBC (10*3/L) Date Value 08/30/2019 10.02 NA (mmol/L) Date Value 08/16/2019 135 RBC (10*6/L) Date Value 08/30/2019 4.67 K (mmol/L) Date Value 08/16/2019 3.9 PLT (10*3/L) Date Value 08/30/2019 408 (H) CALCIUM (mg/dL) Date Value 08/16/2019 6.6 (L) HGB (g/dL) Date Value 08/30/2019 13.9 CL (mmol/L) Date Value 08/16/2019 107 HCT (%) Date Value 08/30/2019 42.0 BUN (mg/dL) Date Value 08/16/2019 19 LIPID PANEL CREATININE (mg/dL) Date Value 08/16/2019 0.91 CHOL (mg/dL) Date Value 03/26/2019 160 GLUCOSE (mg/dL) Date Value 08/16/2019 236 (H) LDL CHOL (no units) Date Value 03/26/2019 Comment: Unable to calculate LDL due to elevated triglyceride level greater than 400 mg/dL. CO2 TOTAL (mmol/L) Date Value 08/16/2019 22 (L) HDL (mg/dL) Date Value 03/26/2019 30 (L) ALBUMIN Date Value Ref Range Status 03/26/2019 4.0 3.5 - 5.0 g/dL Final TRIG (mg/dL) Date Value 03/26/2019 566 (H) T PROTEIN Date Value Ref Range Status 03/26/2019 7.0 6.3 - 8.2 g/dL Final TSH TOTAL BILI Date Value Ref Range Status 03/26/2019 0.5 0.1 - 1.1 mg/dL Final TSH (mIU/L) Date Value 03/26/2019 1.81 No components found for: BILIUNCOM No results found for: BILICONJ ALT(SGPT) Date Value Ref Range Status 10/28/2018 25 9 - 51 U/L Final ALTv Date Value Ref Range Status 03/26/2019 15 5 - 35 U/L Final AST(SGOT) Date Value Ref Range Status 03/26/2019 15 13 - 40 U/L Final ALK PHOS Date Value Ref Range Status 03/26/2019 138 (H) 34 - 122 U/L Final ASSESSMENT/PLAN Diagnoses and all orders for this visit: Acute on chronic hip pain, left; Acute on chronic left-sided low back pain with left-sided sciatica;History of fall We discussed the Ddx of the patient's pain. Imaging was recommended for further evaluation. Ice alt with/OR heat can be applied to painful areas (cautiously or avoid if diabetic). Tylenol Arthritis formula can be used PRN pain. NSAID therapy was not recommended given the renal, CVS, and GI risks.Additional medications were prescribed as listed below (muscle relaxant). I agree this patient would benefit from seeing a paint mixer and a referral has been initiated. ER precautionsfor signs of cauda equina, severe uncontrolled pain, inability to walk, etc. - XR HIPS 2 VW LEFT; Future - XR LUMBAR SPINE 4 VW; Future - CONSULT/REFERRAL PAIN CLINIC - methocarbamoL 500 mg tablet; Take 1 tablet by mouth 4 (four) times daily as needed (muscle spasm). Plan of care, desired health behaviors, goals, Ddx, and any prescribed medications were discussed with the patient. This visit did not involve counseling and coordination that comprised more than 50% of the visit time. Education resources and self-management tools were provided/reviewed with the AVS. Patient/guardian/family verbalized understanding and agrees to the plan of care. Barriers to care: None. Ability to manage care: Good. Advanced care planning (living will) information was not given/offered to the patient to review for discussion at a future visit. If applicable, the [place] PMPdatabase was accessed to review any controlled substance prescription claims data. If the patient is taking prescribed medications, the [employer] prescription claims data in [employer] was reviewed to assess patient compliance with the medication treatment plan. Follow-up: Return when ready for Medicare annual wellness visit. Follow-up sooner if any problems or concerns. WELDER documented in this encounter Plan of Treatment Date Type Specialty Care Team Description 05/28/2020 Office Visit Family Medicine Dev Costa MD [address] [place] [address] 09/04/2020 Office Visit Endocrinology Diabetes & Anatoly Chapin MD Metabolism [address] [facility] [address] [place], [place] [address] Health Maintenance Due Date [...] 2022 documented as of this encounter Results XR LUMBAR SPINE 4 VW (05/08/2020 3:19 PM ROD WELDER) Specimen Narrative Performed At XR LUMBAR SPINE [...] Results Inft User - 2019 5:00 PM ROD WELDER XR LUMBAR SPINE 4 VW HISTORY: Female [...] HIPS 2 VW LEFT (05/08/2020 3:19 PM ROD WELDER) Specimen Impressions Performed At Impression: Moderate osteoarthritis of t he left hip joint space without PACS/VR/DOSE evidence of fracture visualized. RL: [id number] 20 4:34 PM Narrative Performed At This result has an attachment that is no t available. Clinical indication: Severe acute on chronic hip pain status post fall 2 PACS/VR/DOSE days ago. Ordering Physician: DEV COSTA Findings: [...] Results Inft User - 2019 4:35 PM ROD WELDER Clinical indication: Severe acute on chronic hip [...] space without evidence of fracture visualized. RL: [id number] Performing Organization Address City/State/Zipcode Phone Number PACS/VR/DOSE documented in this encounter Visit Diagnoses Diagnosis Acute on chronic hip pain, left - Primar y Acute on chronic left-sided low back raza n with left-sided sciatica documented in this encounter Insurance Payer Benefit Plan / Subscriber ID Effective Dates Phone Addre ss Type Group MEDICARE MEDICARE PART [id number] 2017-Justin [phone] Medicare A & B nt 2 [id number] ALVARADO SUTTON [phone] [id number] documented as of this encounter
--- OUTSIDE RECORDS SUMMARY | 2020-06-01 23:26 | XMS REPORT | Summary of Care ---
:1970 Author Organization [facility] Address [address] [place] [address] Care Team Providers Name Role Phone Jelena [...] CONSULT/REFERRAL PAIN CLINIC MD Gary Claros MD [address] [place] [address] [place] [address] [address] [address] [place], [place] Phone: [phone] Phone: Radiology Services (Routine) Status Reason Specialty Diagnoses / Referred By Referred To Procedures Contact Contact Closed Diagnostic Diagnoses Chronic hip pain, left Left-sided low back pain with left-sided sciatica, unspecified chronicity Lucas, Radiology Procedures XR HIPS 2 VW LEFT Dev Avery MD [address] [place] [address] [place] [address] Reason for Visit Reason Comments Hip Pain left hip pain, pain radiates down left leg Auth/Cert Status Reason Specialty Diagnoses / Procedures Referred By Heath leyva Referred To Contact Radiology Adc X-Ray [address] [facility] [place] [address] Phone: Fax: Encounter Details Date Type Department Care Team Description 05/08/2020 Office Visit [facility] Family Dev Costa Acut e on chronic hip pain, left (Primary Dx); Medicine - Shruthi Avery MD Acute on chronic left-sided low back raza n with left-sided sciatica [address] [facility] [address] [facility] [address], [place] [address] Allergies Active Allergy Reactions [...] mouth at Coronary artery bedtime. disease involving rampart coronary artery of rampart heart without angina pectoris metoprolol succinate Take 1 tablet 30 tablet 11 08/17/2019 Active XL 100 mg 24 hr by mouth tabletIndications: daily. 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 documented as of this encounter Last Filed Vital Signs Vital Sign Reading Time Taken Comments Blood Pressure 128/80 05/08/2020 1:29 PM WELDING MACHINE OPERATOR RESISTANCE Pulse 82 05/08/2020 1:29 PM WELDING MACHINE OPERATOR RESISTANCE Temperature 36.4 C (97.5 F) 05/08/2020 1:29 PM WELDING MACHINE OPERATOR RESISTANCE Respiratory Rate - - Oxygen Saturation - - Inhaled Oxygen Concentration - - Weight 68 kg (150 lb) 05/08/2020 1:29 PM WELDING MACHINE OPERATOR RESISTANCE Height 162.6 cm (5' 4") 05/08/2020 1:29 PM WELDING MACHINE OPERATOR RESISTANCE Body Mass Index 25.75 05/08/2020 1:29 PM WELDING MACHINE OPERATOR RESISTANCE documented in this encounter Patient Instructions Patient InstructionsDev Costa MD - 05/08/2020 1:15 PM WELDING MACHINE OPERATOR RESISTANCE Patient Education Understanding Lumbar Radiculopathy Lumbar radiculopathy [...] relieve symptoms. These may include: Prescription and vkvt-jkx-cjfufcn pain medicines. These help relieve pain, swelling, [...] Leslie last reviewed this educational content on 06/29/201919997184-8121 [employer]. All rights reserved. This information is not [...] called trochanteric bursitis. How to say it [id number] Causes of trochanteric bursitis Causes may include: [...] allows the bursa to heal. Prescription or dltq-akv-nyjzxco pain medicines. These help reduce inflammation, swelling, [...] Leslie last reviewed this educational content on 10/27/201819991662-6199 [employer]. All rights reserved. This information is not [...] relieve symptoms. These may include: Prescription and wqqk-qyz-jtspfqs pain medicines. These help relieve pain, swelling, [...] JosephTa last reviewed this educational content on 06/29/201919997186-0989 [employer]. All rights reserved. This information is not intended as a substitute for professional medical care. Always follow your healthcare professional's instructions. ING MACHINE OPERATOR RESISTANCE documented in this encounter Progress Notes Dev [...] (congestive heart failure) Coronary artery disease involving rampart coronary artery of rampart heart without angina pectoris08/05/2019 CVA (cerebral vascular [...] SECTION X 2 EYE SURGERY attached retina [place] ANESTH,OPEN HEART SURGERY+PUMP X 2 TUBAL LIGATION [...] file Gets together: Not on file Attends confucianism service: Not on file Active member of [...] History Narrative No domestic abuse or violence. Yazidi Preference ; none Review of Systems Constitutional: [...] this patient would benefit from seeing a spray ii painter and a referral has been initiated. ER [...] at a future visit. If applicable, the [place] PMPdatabase was accessed to review any controlled substance prescription claims data. If the patient is taking prescribed medications, the [employer] prescription claims data in [employer] was reviewed to assess patient compliance with the medication treatment plan. Follow-up: Return when ready for Medicare annual wellness visit. Follow-up sooner if any problems or concerns. ING MACHINE OPERATOR RESISTANCE documented in this encounter Plan of Treatment Date Type Specialty Care Team Description 05/28/2020 Office Visit Family Medicine Dev Costa MD [address] [place] [address] 09/04/2020 Office Visit Endocrinology Diabetes & Anatoly Chapin MD Metabolism [address] [facility] [address] [place], [place] [address] Health Maintenance Due Date [...] LUMBAR SPINE 4 VW (05/08/2020 3:19 PM WELDING MACHINE OPERATOR RESISTANCE) Specimen Narrative Performed At XR LUMBAR SPINE [...] Results Inft User - 2019 5:00 PM WELDING MACHINE OPERATOR RESISTANCE XR LUMBAR SPINE 4 VW HISTORY: Female [...] HIPS 2 VW LEFT (05/08/2020 3:19 PM WELDING MACHINE OPERATOR RESISTANCE) Specimen Impressions Performed At Impression: Moderate osteoarthritis of t he left hip joint space without PACS/VR/DOSE evidence of fracture visualized. RL: [id number] 20 4:34 PM Narrative Performed At This [...] Results Inft User - 2019 4:35 PM WELDING MACHINE OPERATOR RESISTANCE Clinical indication: Severe acute on chronic hip [...] space without evidence of fracture visualized. RL: [id number] Performing Organization Address City/State/Zipcode Phone Number PACS/VR/DOSE documented in this encounter Visit Diagnoses Diagnosis Acute on chronic hip pain, left - Primar y Acute on chronic left-sided low back raza n with left-sided sciatica documented in this encounter Insurance Payer Benefit Plan / Subscriber ID Effective Dates Phone Addre ss Type Group MEDICARE MEDICARE PART [id number] 2017-Justin [phone] Medicare A & B nt 2 [id number] ALVARADO SUTTON [phone] [id number] documented as of this encounter
--- OUTSIDE RECORDS SUMMARY | 2020-06-01 23:26 | XMS REPORT | Summary of Care ---
:1970 Author Organization [facility] Address [address] [place] [address] Care Team Providers Name Role Phone Fabby Meléndez Unavailable Bennie Zavala MD Primary Care Provider Eligio Garsia MD Unavailable Reason for Visit Reason Comments Refill Request Encounter Details Date Type Department Care Team Description 05/19/[address] [facility] Family Medicine Dev Hernandez MD Refill Request - [address] [place] [address] [place] [address] [phone] Allergies Active Allergy Reactions Severity Noted Date Comments Ketorolac Tromethamine Hives 12/15/2016 Tramadol Hives 12/15/2016 documented as of this encounter (statuses as of 05/19/2020) Medications Medication Sig Dispensed Refills Start End Date Status Date nitroglycerin 0.4 mg 1 tab SL 25 tablet 0 Active sublingual q5min up to 9 tabletIndications: 3 doses PRN H/O right coronary chest pain, artery stent then placement activate 911. isosorbide Take 1 90 tablet 1 Active mononitrate 30 mg 24 tablet by 0 hr tabletIndications: mouth daily. H/O right coronary artery stent placement aspirin 81 mg Take 1 90 tablet 3 Active chewable tablet tablet by mouth daily. clopidogreL (PLAVIX) Take 1 30 tablet 11 Active 75 mg tablet by 0 tabletIndications: mouth daily. H/O right coronary artery stent placement insulin NPH and Inject 84 6 Vial 3 Acti ve regular human 70-30 units AM, 84 0 (NOVOLIN 70/30 U-100 units PM INSULIN) 100 unit/mL (70-30) injectionIndications: Type 2 diabetes mellitus with diabetic peripheral angiopathy without gangrene, with long-term current use of insulin atorvastatin 80 mg Take 1 30 tablet 11 A ctive tabletIndications: tablet by 0 Coronary artery mouth at disease involving bedtime. quechan coronary artery of quechan heart without angina pectoris metoprolol succinate Take 1 30 tablet 11 Active XL 100 mg 24 hr tablet by 0 tabletIndications: mouth daily. Coronary artery disease involving quechan coronary artery of quechan heart without angina pectoris metFORMIN 500 mg Take 2 360 tablet 1 Ac tive tablet tablets by 0 mouth 2 (two) times daily with meals. clotrimazole-betameth Apply to 15 g 0 Active asone area(s) 2 0 creamIndications: (two) times Vulvovaginitis daily. Use for 2 weeks on affected area PANTOPRAZOLE 40 mg EC TAKE 1 30 tablet 0 Active tabletIndications: TABLET BY 0 Gastroesophageal MOUTH ONCE reflux disease DAILY DO NOT CRUSH OR CHEW FUROSEMIDE 20 mg Take 1 90 tablet 0 Act mayito tabletIndications: tablet by 0 Congestive heart mouth once failure, unspecified daily HF chronicity, unspecified heart failure type POTASSIUM CHLORIDE 10 Take 1 30 tablet 0 Active mEq CR tablet by 0 tabletIndications: mouth once Hypokalemia daily methocarbamoL 500 mg Take 1 40 tablet 0 Active tabletIndications: tablet by 0 Chronic hip pain, mouth 4 left, Chronic (four) times left-sided low back daily as pain with left-sided needed sciatica (muscle spasm). gabapentin 800 mg Take 1 90 tablet 5 Ac tive tabletIndications: tablet by 0 Neuropathy mouth 3 (three) times daily. gabapentin 800 mg Take 1 90 tablet 0 05/19/20 Di scontinued tabletIndications: tablet by 0 20 ( Reorder) Neuropathy mouth 3 (three) times daily. documented as of this encounter (statuses as of 05/19/2020) Active Problems Problem Noted Date Chronic hip pain, left 05/13/2020 Osteoarthritis of left hip, unspecified osteoarthritis type 05/13/2020 Obesity (BMI 30-39.9) 08/12/2019 Chest pain 08/12/2019 Coronary artery disease involving quechan coronary radha ry of quechan heart 08/05/2019 without angina pectoris PAD (peripheral artery disease) 08/05/2019 Chronic heart failure with preserved ejection fraction 08/05/2019 GARY (stress urinary incontinence, female) 02/02/2018 Overview: Added automatically from request for atte stone [id number] GERD (gastroesophageal reflux disease) DM (diabetes mellitus) Depression CVA (cerebral vascular accident) CHF (congestive heart failure) Anxiety Angina pectoris H/O right coronary artery stent placement High cholesterol HTN (hypertension) Hx of CABG Migraines Seizures Unilateral AKA, right documented as of this encounter (statuses as of 05/19/2020) Social History Tobacco Use Types Packs/Day Years Used Date Current Every Day Smoker Cigarettes 1 Smokeless Tobacco: Never Used Comments: smoking since 14 years old Alcohol Use Drinks/Week oz/Week Comments Not Currently rare Sex Assigned at Date Recorded Not on file COVID-19 Exposure Response Date Recorded In the last month, have you been in contact with No / Unsure 05/08/2020 1:24 PM REVENUE FIELD AUDITOR someone who was confirmed or 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 documented as of this encounter Last Filed Vital Signs Not on filedocumented in this encounter Miscellaneous Notes Telephone Encounter - Funmi Orantes MA - 05/19/2020 10:12 AM CSTPlease review and sign if appropriate. NUE FIELD AUDITOR documented in this encounter Plan of Treatment Date Type Specialty Care Team Description 05/28/2020 Office Visit Family Medicine Dev Zavala MD [address] [place] [address] 09/04/2020 Office Visit Endocrinology Diabetes & Anatoly Chapin MD Metabolism [address] [address] [phone] Health Maintenance Due Date Last Done Comments [...] Addre ss Type Group MEDICARE MEDICARE PART [id number] 2017-Justin [phone] [address] Medicare A & B nt 2 [id number] ALVARADO SUTTON [id number] documented as of this encounter
--- OUTSIDE RECORDS SUMMARY | 2020-06-01 23:26 | XMS REPORT | Summary of Care ---
:[address] [facility] Address [address] [place] [address] Care Team Providers Name Role Phone Fabby Meléndez Unavailable Bennie Zavala MD Primary Care Provider Eligio Garsia MD Unavailable Reason for Visit Reason Comments Refill Request Encounter Details Date Type Department Care Team Description 05/14/[address] [facility] Family Medicine Dev Hernandez MD Refill Request - [address] [place] [address] [place] [address] [phone] Allergies Active Allergy Reactions Severity Noted Date Comments Ketorolac Tromethamine Hives 12/15/2016 Tramadol Hives 12/15/2016 documented as of this encounter (statuses as of 05/15/2020) Medications Medication Sig Dispensed Refills Start Date [...] mouth at Coronary artery disease bedtime. involving [place] coronary artery of [place] heart without angina pectoris metoprolol succinate XL Take 1 tablet by 30 tablet 11 0 Active 100 mg 24 hr mouth daily. tabletIndications: Coronary artery disease involving [place] coronary artery of [place] heart without angina pectoris DULOXETINE 30 mg [...] as of this encounter (statuses as of 05/15/2020) Active Problems Problem Noted Date Chronic hip pain, left 05/13/2020 Osteoarthritis of left hip, unspecified osteoarthritis type 05/13/2020 Obesity (BMI 30-39.9) 08/12/2019 Chest pain 08/12/2019 Coronary artery disease involving [place] coronary radha ry of [place] heart 08/05/2019 without angina pectoris PAD (peripheral artery disease) 08/05/2019 Chronic heart failure with preserved ejection fraction 08/05/2019 GARY (stress urinary incontinence, female) 02/02/2018 Overview: Added automatically from request for tate bertha [id number] GERD (gastroesophageal reflux disease) DM (diabetes mellitus) Depression CVA (cerebral vascular accident) CHF (congestive heart failure) Anxiety Angina pectoris H/O right coronary artery stent placement High cholesterol HTN (hypertension) Hx of CABG Migraines Seizures Unilateral AKA, right documented as of this encounter (statuses as of 05/15/2020) Social History Tobacco Use Types Packs/Day Years Used Date Current Every Day Smoker Cigarettes 1 Smokeless Tobacco: Never Used Comments: smoking since 14 years old Alcohol Use Drinks/Week oz/Week Comments Not Currently rare Sex Assigned at Date Recorded Not on file COVID-19 Exposure Response Date Recorded In the last month, have you been in contact with No / Unsure 05/08/2020 1:24 PM THREAD TRIMMER someone who was confirmed or 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 documented as of this encounter Last Filed Vital Signs Not on filedocumented in this encounter Plan of Treatment Date Type Specialty Care Team Description 05/28/2020 Office Visit Family Medicine Dev Zavala MD [address] [place] [address] [phone] 09/04/2020 Office Visit Endocrinology Diabetes & Anatoly Chapin MD Metabolism [address] [facility] [address] [place], [place] [address] [phone] Health Maintenance Due Date Last Done Comments [...] Addre ss Type Group MEDICARE MEDICARE PART [id number] 2017-Justin [phone] Medicare A & B nt 2 [id number] ALVARADO SUTTON [id number] documented as of this encounter
--- OUTSIDE RECORDS SUMMARY | 2020-06-01 23:26 | XMS REPORT | Summary of Care ---
:1970 Author Organization [facility] Address [address] [place] [address] Care Team Providers Name Role Phone Fabby Meléndez Unavailable Bennie Zavala MD Primary Care Provider Eligio Garsia MD Unavailable Reason for Referral (TRANG) Status Reason Specialty Diagnoses / Referred By Referred To Procedures Contact Contact New Request Orthopedic Diagnoses Osteoarthritis of left hip, unspecified osteoarthritis type Chronic hip pain, left [place], Surgery Procedures CONSULT/REFERRAL ORTHOPAEDIC SURGERY Dev Avery MD [address] [place] [address] [place] [address] Reason for Visit Reason Comments REFERRAL Encounter Details Date Type Department Care Team Description 05/13/2020 Case Management [facility] Family Dev Zavala , REFERRAL Medicine - Shruthi BROWN [address] [place] [address] Dr [address] [place] [address] [place] [address] [place], [place] [phone] [address] Allergies Active Allergy Reactions Severity Noted Date Comments Ketorolac Tromethamine Hives 12/15/2016 Tramadol Hives 12/15/2016 documented as of this encounter (statuses as of 05/13/2020) Medications Medication Sig Dispensed Refills Start Date [...] of [place] heart without angina pectoris DULOXETINE 30 mg [...] as of this encounter (statuses as of 05/13/2020) Active Problems Problem Noted Date Chronic hip [...] Added automatically from request for tate bertha [id number] GERD (gastroesophageal reflux disease) DM (diabetes mellitus) Depression CVA (cerebral vascular accident) CHF (congestive heart failure) Anxiety Angina pectoris H/O right coronary artery stent placement High cholesterol HTN (hypertension) Hx of CABG Migraines Seizures Unilateral AKA, right documented as of this encounter (statuses as of 05/13/2020) Social History Tobacco Use Types Packs/Day Years Used Date Current Every Day Smoker Cigarettes 1 Smokeless Tobacco: Never Used Comments: smoking since 14 years old Alcohol Use Drinks/Week oz/Week Comments Not Currently rare Sex Assigned at Date Recorded Not on file COVID-19 Exposure Response Date Recorded In the last month, have you been in contact with No / Unsure 05/08/2020 1:24 PM BOW REPAIRER CUSTOM someone who was confirmed or 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 documented as of this encounter Last Filed Vital Signs Not on filedocumented in this encounter Progress Notes Dev Zavala MD - 05/13/2020 10:45 AM CST Result Communications Result Notes Dev Zavala MD 05/13/2020 10:45 AM BOW REPAIRER CUSTOM Moderate osteoarthritis of left hip. Referral to Orthopaedics has been entered. REPAIRER CUSTOM documented in this encounter Plan of Treatment Date Type Specialty Care Team Description 05/28/2020 Office Visit Family Medicine Dev Zavala MD [address] [place] [address] 09/04/2020 Office Visit Endocrinology Diabetes & Anatoly Chapin MD Metabolism [address] [address] Health Maintenance Due Date [...] filedocumented in this encounter Visit Diagnoses Diagnosis Osteoarthritis of left hip, unspecified osteoarthritis type - Primary Chronic hip pain, left documented in this encounter Insurance Payer Benefit Plan / Subscriber ID Effective Dates Phone Addre ss Type Group MEDICARE MEDICARE PART [id number] 2017-Justin [phone] [address] Medicare A & B nt 2 [id number] ALVARADO SUTTON [phone] documented as of this encounter
[2020-06-02] MEDS ORDERED: LIDOCAINE 1% 20 ML MDV ONE (00:09)
[2020-06-02] MEDS ORDERED: MORPHINE 4 MG/ML SYR ONE (00:09)
[2020-06-02] MEDS ORDERED: ONDANSETRON 4 MG (ODT) TAB ONE (00:09)
[2020-06-02] MEDS ORDERED: TETANUS & DIPHTHERIA TOX,ADULT 0.5 ML VIAL ONE (00:10)
[2020-06-02] MEDS ORDERED: NA CHLORIDE 0.9% 1,000 ML ONE (00:52)
[2020-06-02] MEDS ORDERED: FENTANYL CITR 100 MCG/2 ML ONE ×2 (01:27→03:05)
[2020-06-02] MEDS ORDERED: INSULIN -REGULAR HUMAN 50 UNIT/0.5 ML ML ONE ×2 (01:28→03:43)
[2020-06-02 01:41] LABS: Potassium 3.7 mmol/L (3.5-5.1)
[2020-06-02 01:44] LABS: Absolute Lymphocytes (CBC) 2.2 K/uL (0.7-4.9); Basophils % 0.6 % (0-1.3); Hematocrit 46.5 % (36.0-45.0); Lymphocytes % 19.7 % (15.3-44.8); MPV 9.5 fL (7.6-11.3)
--- NOTE | 2020-06-02 01:45 | EDPHYS ---
Physician Documentation [facility] Name: Karen Shah Age: 50 yrs Sex: Female : 1970 Arrival Date: 06/01/2020 Time: 23:22 Bed 16 Private MD: ED Physician Leopoldo Nixon HPI: 06/01 23:50 This 50 yrs old Female presents to ER via Wheelchair with complaints of Boil. pm1 23:50 The patient presents with an abscess of the groin. Description: pointed, swollen. pm1 Onset: The symptoms/episode began/occurred yesterday. Possible cause(s): unknown. Associated signs and symptoms: Pertinent negatives: discharge, drainage, fever, nausea, vomiting. Modifying factors: the symptoms are alleviated by nothing, the symptoms are aggravated by pressure, touching. Severity of symptoms: in the emergency department the symptoms are actually worse. The patient has experienced similar episodes in the past, a few times. The patient has not recently seen a physician. Historical: - Allergies: 23:44 Toradol; zb 23:44 tramadol; zb 23:44 Adhesives; zb - Home Meds: 23:44 atorvastatin Oral [Active]; clopidogrel Oral [Active]; duloxetine Oral [Active]; zb escitalopram oxalate Oral [Active]; Furosemide Oral [Active]; gabapentin Oral [Active]; Isosorbide Mononitrate Oral [Active]; Metformin Oral [Active]; Nitroglycerin Topical [Active]; - PMHx: 23:44 CAD; CVA; Diabetes - IDDM; High Cholesterol; Hypertension; Myocardial infarction; Right zb AKA; Seizures; - Immunization history:: Adult Immunizations not up to date. - Social history:: Smoking status: Patient reports the use of cigarette tobacco products. ROS: 23:50 Constitutional: Negative for fever, chills, and weight loss, Cardiovascular: Negative pm1 for chest pain, palpitations, and edema, Respiratory: Negative for shortness of breath, cough, wheezing, and pleuritic chest pain, Abdomen/GI: Negative for abdominal pain, nausea, vomiting, diarrhea, and constipation. 23:50 : Negative for injury, bleeding, discharge, and swelling, MS/Extremity: Negative for injury and deformity. 23:50 Neuro: Negative for headache, weakness, numbness, tingling, and seizure. 23:50 Back: Positive for of the low back area, pain. 23:50 Skin: Positive for abscess, of the groin. Exam: 23:50 Constitutional: This is a well developed, well nourished patient who is awake, alert, pm1 and in no acute distress. Head/Face: Normocephalic, atraumatic. 23:50 Back: No spinal tenderness. No costovertebral tenderness. Full range of motion. 23:50 Cardiovascular: Rate: tachycardic, actual rate is 110 bpm, Rhythm: regular, Pulses: no pulse deficits are appreciated, Edema: is not appreciated. 23:50 Respiratory: Exam negative for acute changes, respiratory distress, shortness of breath. 23:50 Abdomen/GI: Exam negative for acute changes, Inspection: abdomen appears normal, Palpation: abdomen is soft and non-tender, in all quadrants. 23:50 Musculoskeletal/extremity: Extremities: grossly normal except: right AKA. 23:50 Skin: Appearance: normal except for affected area, abscess, that is small, of the mons pubis, with pointing, no surrounding cellulitis or drainage, cellulitis, is not appreciated. 23:50 Neuro: Exam negative for acute changes, Orientation: is normal, Mentation: is normal, Motor: is normal, moves all fours. Vital Signs: 23:41 BP 167 / 102; Pulse 114; Resp 20; Temp 98.3; Pulse Ox 99% on R/A; Weight 68.04 kg; zb Height 5 ft. 4 in. (162.56 cm); Pain 10/10; 06/02 00:00 BP 115 / 81; Pulse 105; Resp 18; Pulse Ox 98% ; ea 01:45 BP 132 / 94; Pulse 98; Resp 18; Pulse Ox 98% on R/A; ea 03:00 BP 152 / 83; Pulse 95; Resp 16; Pulse Ox 97% on R/A; ll2 04:00 BP 137 / 78; Pulse 88; Resp 17; Pulse Ox 99% on R/A; ll2 06/01 23:41 Body Mass Index 25.75 (68.04 kg, 162.56 cm) zb MDM: 06/01 23:34 Patient medically screened. pm1 06/02 01:07 Data reviewed: vital signs. Data interpreted: Pulse oximetry: on room air is 99 %. pm1 Interpretation: normal. 01:44 Counseling: I had a detailed discussion with the patient and/or guardian regarding: the pm1 historical points, exam findings, and any diagnostic results supporting the discharge/admit diagnosis, lab results, the need for outpatient follow up, to return to the emergency department if symptoms worsen or persist or if there are any questions or concerns that arise at home. 01:51 ED course: TAN ROOM SUPERVISOR aware reviewed. pm1 06/02 01:10 Order name: Glucose, Ancillary Testing; Complete Time: 01:33 EDMS 06/02 01:11 Order name: Basic Metabolic Panel; Complete Time: 01:42 EDMS 06/02 01:11 Order name: CBC with Automated Diff; Complete Time: 03:25 EDMS 06/02 03:37 Order name: Glucose, Ancillary Testing; Complete Time: 04:15 EDMS 06/01 23:40 Order name: Incision \T\ Drainage Setup; Complete Time: 00:18 pm1 06/02 00:35 Order name: IV Saline Lock; Complete Time: 01:53 pm1 06/02 00:45 Order name: Glucose Level; Complete Time: 01:09 pm1 Administered Medications: 00:09 Drug: Tetanus-Diphtheria Toxoid Adult 0.5 ml {E Learning Designer: [employer]. Exp: zb 09/12/2021. Lot #: [id number]. } Route: IM; Site: right deltoid; 00:28 Follow up: Response: No adverse reaction zb 00:09 Drug: morphine 4 mg Route: IM; Site: left deltoid; zb 00:28 Follow up: Response: No adverse reaction; RASS: Alert and Calm (0) zb 00:09 Drug: Lidocaine (1 %) 5 ml Volume: 5 ml; Route: Infiltration; zb 00:28 Follow up: Response: No adverse reaction zb 00:09 Drug: Ondansetron (Zofran) 4 mg Route: PO; zb 00:28 Follow up: Response: No adverse reaction zb 01:30 Drug: Insulin Regular Human 10 units {Co-Signature: ll2 (Debbie Swift RN).} Route: ea IVP; Site: left antecubital; 02:30 Follow up: Response: No adverse reaction ll2 01:45 Drug: NS 0.9% 1000 ml Route: IV; Rate: 1000 ml; Site: left antecubital; ea 01:53 Drug: fentaNYL (PF) 50 mcg Route: IVP; Site: left antecubital; ea 02:45 Follow up: Response: No adverse reaction ll2 02:48 Drug: fentaNYL (PF) 25 mcg Route: IVP; Site: right antecubital; ll2 03:45 Follow up: Response: No adverse reaction; RASS: Alert and Calm (0) ll2 03:30 Drug: Insulin Regular Human 10 units {Co-Signature: [email or web address] (Ezequiel Infante RN).} Route: ll2 Sub-Q; Site: left lower abdomen; Disposition: 05:29 Co-signature as Attending Physician, Leopoldo Nixon MD. rn Disposition: 06/02/20 01:45 Discharged to Home. Impression: Cutaneous abscess of groin, Hyperglycemia, unspecified. - Condition is Stable. - Discharge Instructions: Skin Abscess, Hyperglycemia, Incision and Drainage, Blood Glucose Monitoring, Adult. - Prescriptions for Doxycycline Hyclate 100 mg Oral Tablet - take 1 tablet by ORAL route every 12 hours; 20 tablet. Tylenol- Codeine #3 300-30 mg Oral Tablet - take 2 tablets by ORAL route every 6 hours As needed; 20 tablet. - Medication Reconciliation Form, Thank You Letter, Antibiotic Education, Prescription Opioid Use form. - Follow up: Emergency Department; When: As needed; Reason: Worsening of condition. Follow up: Private Physician; When: 2 - 3 days; Reason: Recheck today's complaints, Continuance of care, Re-evaluation by your physician. - Problem is new. - Symptoms have improved. Signatures: Dispatcher [employer] EDMS Leopoldo Nixon MD MD rn Marinas, Patrick, SALES SERVICE REPRESENTATIVE SALES SERVICE REPRESENTATIVE pm1 Diana Miranda RN Debbie Solomon ea, RN RN ll2 Marcy Barboza RN RN zb Lacie Linscombe RN ll2 James Bryson RN [email or web address] Corrections: (The following items were deleted from the chart) 04:25 01:45 06/02/2020 01:45 Discharged to Home. Impression: Cutaneous abscess of groin; ll2 Hyperglycemia, unspecified. Condition is Stable. Forms are Medication Reconciliation Form, Thank You Letter, Antibiotic Education, Prescription Opioid Use. Follow up: Emergency Department; When: As needed; Reason: Worsening of condition. Follow up: Private Physician; When: 2 - 3 days; Reason: Recheck today's complaints, Continuance of care, Re-evaluation by your physician. Problem is new. Symptoms have improved. pm1
--- NOTE | 2020-06-02 01:45 | ER ---
Nurse's Notes [facility] Name: Karen Shah Age: 50 yrs Sex: Female : 1970 Arrival Date: 06/01/2020 Time: 23:22 Bed 16 Private MD: Diagnosis: Cutaneous abscess of groin;Hyperglycemia, unspecified Presentation: 06/01 23:41 Chief complaint: Patient states: vaginal boil for 2 days. Coronavirus screen: At this zb time, the client does not indicate any symptoms associated with coronavirus-19. Ebola Screen: No symptoms or risks identified at this time. Initial Sepsis Screen: Does the patient meet any 2 criteria? No. Patient's initial sepsis screen is negative. Does the patient have a suspected source of infection? No. Patient's initial sepsis screen is negative. Risk Assessment: Do you want to hurt yourself or someone else? Patient reports no desire to harm self or others. Onset of symptoms was May 31, 2020. 23:41 Method Of Arrival: Wheelchair zb 23:41 Acuity: ARIEL 3 zb Triage Assessment: 23:45 General: Appears in no apparent distress. uncomfortable, Behavior is cooperative, zb anxious, fussy. Pain: Complains of pain in groin Pain does not radiate. Pain currently is 10 out of 10 on a pain scale. Quality of pain is described as aching, Pain began gradually, 1 day ago. EENT: No signs and/or symptoms were reported regarding the EENT system. Neuro: Level of Consciousness is awake, alert, obeys commands, Oriented to person, place, time, situation. Cardiovascular: Capillary refill < 3 seconds in bilateral fingers Patient's skin is warm and dry. Respiratory: Airway is patent Respiratory effort is even, unlabored, Respiratory pattern is regular, symmetrical. GI: Abdomen is flat, non-distended. : No signs and/or symptoms were reported regarding the genitourinary system. Derm: Skin is intact, is healthy with good turgor, Skin is normal, Skin temperature is warm Abscess located on right pubis mons is nickel sized, has no drainage, is red, is raised. Musculoskeletal: Amputation of Circulation, motion, and sensation intact. Capillary refill < 3 seconds, in bilateral fingers. Range of motion: intact in Right AKA. Historical: - Allergies: 23:44 Toradol; zb 23:44 tramadol; zb 23:44 Adhesives; zb - Home Meds: 23:44 atorvastatin Oral [Active]; clopidogrel Oral [Active]; duloxetine Oral [Active]; zb escitalopram oxalate Oral [Active]; Furosemide Oral [Active]; gabapentin Oral [Active]; Isosorbide Mononitrate Oral [Active]; Metformin Oral [Active]; Nitroglycerin Topical [Active]; - PMHx: 23:44 CAD; CVA; Diabetes - IDDM; High Cholesterol; Hypertension; Myocardial infarction; Right zb AKA; Seizures; - Immunization history:: Adult Immunizations not up to date. - Social history:: Smoking status: Patient reports the use of cigarette tobacco products. Screenin:49 Abuse screen: Denies threats or abuse. Denies injuries from another. Nutritional zb screening: No deficits noted. Tuberculosis screening: No symptoms or risk factors identified. Fall Risk No fall in past 12 months (0 pts). No secondary diagnosis (0 pts). IV access (20 points). Ambulatory Aid- None/Bed Rest/Nurse Assist (0 pts). Gait- Normal/Bed Rest/Wheelchair (0 pts) Mental Status- Oriented to own ability (0 pts). Total Mccall Fall Scale indicates No Risk (0-24 pts). Assessment: 06/02 00:00 Reassessment: Patient and/or family updated on plan of care and expected duration. Pain ea level reassessed. Patient is alert, oriented x 3, equal unlabored respirations, skin warm/dry/pink. 01:00 Reassessment: Patient and/or family updated on plan of care and expected duration. Pain ea level reassessed. Patient is alert, oriented x 3, equal unlabored respirations, skin warm/dry/pink. 02:07 Reassessment: Patient and/or family updated on plan of care and expected duration. Pain ea level reassessed. Patient is alert, oriented x 3, equal unlabored respirations, skin warm/dry/pink. Awaiting on IV fluids to complete. 02:29 Reassessment: d/c pending completion of IV fluids. ll2 03:37 Reassessment: Patient and/or family updated on plan of care and expected duration. Pain ll2 level reassessed. Patient is alert, oriented x 3, equal unlabored respirations, skin warm/dry/pink. upon D/C pt's FSBS was 422, ERD notified, insulin given. pt instructed on wait time and reason. 04:22 Reassessment: Patient and/or family updated on plan of care and expected duration. Pain ll2 level reassessed. Patient is alert, oriented x 3, equal unlabored respirations, skin warm/dry/pink. FSBS was 411,erd notified and advised that pt can go home to manage. Vital Signs: 06/01 23:41 BP 167 / 102; Pulse 114; Resp 20; Temp 98.3; Pulse Ox 99% on R/A; Weight 68.04 kg; zb Height 5 ft. 4 in. (162.56 cm); Pain 10/10; 06/02 00:00 BP 115 / 81; Pulse 105; Resp 18; Pulse Ox 98% ; ea 01:45 BP 132 / 94; Pulse 98; Resp 18; Pulse Ox 98% on R/A; ea 03:00 BP 152 / 83; Pulse 95; Resp 16; Pulse Ox 97% on R/A; ll2 04:00 BP 137 / 78; Pulse 88; Resp 17; Pulse Ox 99% on R/A; ll2 06/01 23:41 Body Mass Index 25.75 (68.04 kg, 162.56 cm) zb ED Course: 06/01 23:22 Patient arrived in ED. es 23:34 Quique Rivera NP is PHCP. pm1 23:34 Leopoldo Nixon MD is Attending Physician. pm1 23:40 Marcy Barboza RN is Primary Nurse. zb 23:43 Triage completed. zb 23:49 Patient has correct armband on for positive identification. Bed in low position. Call zb light in reach. Side rails up X 1. Pulse ox on. NIBP on. Door closed. Noise minimized. Warm blanket given. 23:50 Arm band placed on. zb 06/02 00:15 Assist provider with I \T\ D: Set up I\T\D tray. Wound packed. iodoform gauze. zb 00:46 Missed attempt(s): 22 gauge in right antecubital area. Bleeding controlled, band aid ea applied, catheter tip intact. 00:50 Missed attempt(s): 20 gauge in left antecubital area. Bleeding controlled, band aid ea applied, catheter tip intact. 01:13 Inserted saline lock: 18 gauge antecubital area, using aseptic technique. forearm, rv using aseptic technique. Blood collected. 01:13 Lab(s) recollected, by me, sent to lab. rv 01:41 Notified Nurse Practitioner and/or Physician County Assessor of a critical lab result(s), sg Glucose 455. 04:24 IV discontinued, intact, bleeding controlled, No redness/swelling at site. Pressure ll2 dressing applied. Administered Medications: 00:09 Drug: Tetanus-Diphtheria Toxoid Adult 0.5 ml {Stem Frazer: [place]. Exp: zb 09/12/2021. Lot #: [id number]. } Route: IM; Site: right deltoid; 00:28 Follow up: Response: No adverse reaction zb 00:09 Drug: morphine 4 mg Route: IM; Site: left deltoid; zb 00:28 Follow up: Response: No adverse reaction; RASS: Alert and Calm (0) zb 00:09 Drug: Lidocaine (1 %) 5 ml Volume: 5 ml; Route: Infiltration; zb 00:28 Follow up: Response: No adverse reaction zb 00:09 Drug: Ondansetron (Zofran) 4 mg Route: PO; zb 00:28 Follow up: Response: No adverse reaction zb 01:30 Drug: Insulin Regular Human 10 units {Co-Signature: ll2 (Debbie Swift RN).} Route: ea IVP; Site: left antecubital; 02:30 Follow up: Response: No adverse reaction ll2 01:45 Drug: NS 0.9% 1000 ml Route: IV; Rate: 1000 ml; Site: left antecubital; ea 01:53 Drug: fentaNYL (PF) 50 mcg Route: IVP; Site: left antecubital; ea 02:45 Follow up: Response: No adverse reaction ll2 02:48 Drug: fentaNYL (PF) 25 mcg Route: IVP; Site: right antecubital; ll2 03:45 Follow up: Response: No adverse reaction; RASS: Alert and Calm (0) ll2 03:30 Drug: Insulin Regular Human 10 units {Co-Signature: [email or web address] (Ezequiel Infante RN).} Route: ll2 Sub-Q; Site: left lower abdomen; Outcome: 01:45 Discharge ordered by . pm1 04:24 Discharged to home via wheelchair. ll2 04:24 Condition: stable 04:24 Discharge instructions given to patient, Instructed on discharge instructions, follow up and referral plans. medication usage, Demonstrated understanding of instructions, follow-up care, medications, Prescriptions given X 2. 04:25 Patient left the ED. ll2 Signatures: Adair Barnes, RN RN Ligia Gallo Patrick, WATER MAIN PIPE LAYER WATER MAIN PIPE LAYER pm1 Diana Miranda, RN RN Luis Mays RN Debbie Pérez RN RN ll2 Marcy Barboza RN RN zb Debbie Swift RN ll2 Ezequiel Infante RN [email or web address]
[2020-06-02 06:00] VITALS: BP 137/78; O2SAT 99
== END 2020-06-02 04:25 | disposition home or self-care (01) ==
LOC: ER 23:19
PROC: 0J9C0ZZ Drainage of Pelvic Region Subcutaneous Tissue and Fascia, Open Approach (ICD-10-PCS; principal; 2020-06-02)
DX: L02.214 Cutaneous abscess of groin (principal); E11.65 Type 2 diabetes mellitus with hyperglycemia; I10 Essential (primary) hypertension; F17.210 Nicotine dependence, cigarettes, uncomplicated; E78.00 Pure hypercholesterolemia, unspecified; Z23 Encounter for immunization; Z86.73 Personal history of transient ischemic attack (TIA), and cerebral infarction without residual deficits; Z88.5 Allergy status to narcotic agent; Z91.048 Other nonmedicinal substance allergy status
CPT/HCPCS: 85025; 80048; 36415; 82947 ×3; 90471; 96372; 99284; 10060; J3010 ×2; J7030; 90714

== ENCOUNTER 2020-07-16 09:51 | Inpatient (IN) | payer OTHER ==
--- NOTE | 2020-07-16 11:56 | RAD REPORT ---
EXAM DESCRIPTION: RAD - Chest Single View - 07/16/2020 11:38 am CLINICAL HISTORY: FEVER COMPARISON: Portable May 06, 2020 TECHNIQUE: AP portable chest image was obtained 07/16/2020 11:38 am . FINDINGS: Lungs are clear. Interstitial pattern matches comparison. Sternotomy wiring fixation hardw are in place. Heart and vasculature are normal. No measurable pleural effusion and no pneumothorax. N o acute bony abnormality seen. No acute aortic findings suspected. IMPRESSION: No acute cardiopulmonary process. No significant change from comparison study.
[2020-07-16] MEDS ORDERED: FENTANYL CITR 100 MCG/2 ML ONE (12:16)
--- NOTE | 2020-07-16 12:25 | RAD REPORT ---
EXAM DESCRIPTION: CT - Head Brain Wo Cont - 07/16/2020 11:41 am CLINICAL HISTORY: HEADACHE, fever COMPARISON: Ct Stroke Brain Wo Cont dated 12/24/2019 TECHNIQUE: Axial 5 mm thick images of the head were obtained without IV contrast. All CT scans are performed using dose optimization technique as appropriate and may include automated exposure control or mA/KV adjustment according to patient size. FINDINGS: No intracranial hemorrhage, mass, edema or shift of mid-line structures. No acute infarcti on changes seen. No abnormal extra-axial fluid collections. Ventricles are normal. Mastoid air cells and visualized portions of the paranasal sinuses are clear. No acute bony findings. No significant changes from comparison. IMPRESSION: Negative non-contrast CT head examination.
[2020-07-16 12:37] LABS: Absolute Lymphocytes (CBC) 0.9 K/uL (0.7-4.9); Basophils % 0.4 % (0-1.3); Hematocrit 44.2 % (36.0-45.0); Lymphocytes % 8.7 % (15.3-44.8); MPV 9.3 fL (7.6-11.3); RBC Red Blood Cell Count 4.98 M/uL (3.86-4.86)
[2020-07-16 12:47] LABS: Protime INR 0.97
[2020-07-16 12:58] LABS: ALT/SGPT 24 U/L (12-78); AST/SGOT 16 U/L (15-37); Albumin 3.3 g/dL (3.4-5.0); Alkaline Phosphatase 144 U/L (45-117); BUN Blood Urea Nitrogen 9 mg/dL (7-18); Bicarbonate 26 mmol/L (21-32); Bilirubin Direct 0.2 mg/dL (0-0.2); Bilirubin Total 0.8 mg/dL (0.2-1.0); CKMB Creatine Kinase MB 1.3 ng/mL (0.3-3.6); Creatine Phosphokinase 99 U/L (26-192); Glucose Level 376 mg/dL (74-106); Potassium 3.5 mmol/L (3.5-5.1); Protein, Total 7.9 g/dL (6.4-8.2); Sodium Level 130 mmol/L (136-145); Troponin (Emerg Dept Use Only) < 0.02 ng/mL (0.0-0.045)
[2020-07-16 13:27] LABS: SARS-COV-2 RT PCR NEGATIVE (NEGATIVE)
[2020-07-16] MEDS ORDERED: NA CHLORIDE 0.9% 1,000 ML ONE ×3 (13:50→19:52)
[2020-07-16] MEDS ORDERED: INSULIN -REGULAR HUMAN 50 UNIT/0.5 ML ML ONE ×2 (13:50→20:25)
[2020-07-16 13:57] LABS: Urine Bacteria 20-50 /HPF (<20); Urine Mucus 1+ /HPF (NONE SEEN); Urine RBC <5 /HPF (NONE SEEN)
[2020-07-16 13:57] LABS: Urine Blood NEGATIVE (NEG); Urine Glucose 3+ (NEG); Urine Protein NEGATIVE (NEG)
[2020-07-16] MEDS ORDERED: CEFTRIAXONE/SWI 1gm 1 GM/10 ML SYR ONE (14:35)
[2020-07-16] MEDS ORDERED: MEPERIDINE HCL 25 MG/ML SYR ONE (15:10)
--- NOTE | 2020-07-16 15:11 | ER ---
Nurse's Notes [facility] Name: Karne Shah Age: 50 yrs Sex: Female : 1970 Arrival Date: 07/16/2020 Time: 09:53 Bed 4 Private MD: Diagnosis: Acute cystitis;Hyperglycemia, unspecified;Tachycardia, unspecified Presentation: 07/16 09:59 Chief complaint: Patient states: L hip pain for 3 days. Fever 103 at home today. NGUYEN R ll1 side for 2 days. No cough or congestion. Some nausea. Coronavirus screen: Client denies travel out of the [place] in the last 14 days. fatigue, fever, headache, nausea, Client presents with at least one sign or symptom that may indicate coronavirus-19. Standard/surgical mask placed on the client. Ebola Screen: Patient denies travel to an Ebola-affected area in the 21 days before illness onset. Initial Sepsis Screen: Does the patient meet any 2 criteria? HR > 90 bpm. No. Patient's initial sepsis screen is negative. Does the patient have a suspected source of infection? Yes: Other: NGUYEN/fever. Risk Assessment: Do you want to hurt yourself or someone else? Patient reports no desire to harm self or others. Onset of symptoms was July 14, 2020. 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 - Social history:: Smoking status: Patient reports the use of cigarette tobacco products, smokes one-half pack cigarettes per day. Screenin:07 Abuse screen: Denies threats or abuse. Nutritional screening: No deficits noted. jd3 Tuberculosis screening: No symptoms or risk factors identified. Fall Risk Ambulatory Aid- None/Bed Rest/Nurse Assist (0 pts). Gait- Normal/Bed Rest/Wheelchair (0 pts) Mental Status- Oriented to own ability (0 pts). Total Mccall Fall Scale indicates No Risk (0-24 pts). Assessment: 12:05 General: Appears in no apparent distress. uncomfortable, Behavior is calm, cooperative, jd3 appropriate for age. Pain: Complains of pain in head, right arm, left arm and left leg Quality of pain is described as aching, crampy. Neuro: Level of Consciousness is awake, alert, obeys commands, Oriented to person, place, time, situation, Guitar Technician are equal bilaterally Moves all extremities. Full function Speech is normal, Facial symmetry appears normal, Pupils are PERRLA, Intact Reports headache weakness in right arm and left arm since X 2 days. Cardiovascular: Denies chest pain, Capillary refill < 3 seconds Patient's skin is warm and dry. Respiratory: Airway is patent Respiratory effort is even, unlabored, Respiratory pattern is regular, symmetrical, Denies cough, shortness of breath. GI: No signs and/or symptoms were reported involving the gastrointestinal system. : No signs and/or symptoms were reported regarding the genitourinary system. EENT: No signs and/or symptoms were reported regarding the EENT system. Derm: Skin is intact, Skin is dry, Skin is normal, Skin temperature is warm. Musculoskeletal: Circulation, motion, and sensation intact. Range of motion: intact in all extremities. 13:11 Reassessment: Patient appears in no apparent distress at this time. Patient and/or jd3 family updated on plan of care and expected duration. Pain level reassessed. Patient is alert, oriented x 3, equal unlabored respirations, skin warm/dry/pink. 14:06 Reassessment: Patient appears in no apparent distress at this time. No changes from jd3 previously documented assessment. Patient and/or family updated on plan of care and expected duration. Pain level reassessed. Patient is alert, oriented x 3, equal unlabored respirations, skin warm/dry/pink. 15:34 Reassessment: Patient appears in no apparent distress at this time. Patient and/or jd3 family updated on plan of care and expected duration. Pain level reassessed. Patient is alert, oriented x 3, equal unlabored respirations, skin warm/dry/pink. Patient states feeling better. 17:16 Reassessment: Patient and/or family updated on plan of care and expected duration. Pain jd3 level reassessed. Patient is alert, oriented x 3, equal unlabored respirations, skin warm/dry/pink. report attempted made. 4th floor will call back. pt reporting feeling about the same, provider notified. 18:30 Reassessment: Patient appears in no apparent distress at this time. No changes from jd3 previously documented assessment. Patient and/or family updated on plan of care and expected duration. Pain level reassessed. Patient is alert, oriented x 3, equal unlabored respirations, skin warm/dry/pink. 19:29 Reassessment: No changes from previously documented assessment. Patient and/or family mg2 updated on plan of care and expected duration. Pain level reassessed. Vital Signs: 09:59 BP 132 / 82; Pulse 128; Resp 17; Temp 99.0; Pulse Ox 100% ; Weight 66.68 kg; Height 5 ll1 ft. 4 in. (162.56 cm); Pain 9/10; 12:09 BP 112 / 74; Pulse 113; Resp 17 S; Pulse Ox 97% on R/A; jd3 13:11 BP 106 / 60; Pulse 108; Resp 17 S; Pulse Ox 98% on R/A; jd3 14:06 BP 116 / 76; Pulse 116; Resp 18; Pulse Ox 98% ; sv 15:34 BP 122 / 63; Pulse 117; Resp 18 S; Temp 99.5(O); Pulse Ox 97% on R/A; jd3 16:25 BP 181 / 97; Pulse 154; Resp 20 S; Temp 102.0(O); Pulse Ox 100% on R/A; jd3 16:36 BP 126 / 73; Pulse 125; Resp 19 S; Pulse Ox 100% on R/A; jd3 17:17 BP 98 / 62; Pulse 120; Resp 20 S; Pulse Ox 95% on R/A; jd3 18:15 BP 91 / 54; Pulse 103; Resp 20 S; Pulse Ox 98% on R/A; jd3 19:28 BP 91 / 54; Pulse 103; Resp 18; Temp 99.7; Pulse Ox 95% on R/A; mg2 21:29 BP 99 / 61; Pulse 109; Resp 17; Pulse Ox 95% on R/A; mg2 09:59 Body Mass Index 25.23 (66.68 kg, 162.56 cm) ll1 NIH Stroke Scale Scores: 12:09 NIHSS Score: 0 jr8 ED Course: 09:53 Patient arrived in ED. ds1 10:04 Triage completed. ll1 10:04 Arm band placed on. ll1 11:07 Jorge Chamberlain PA is PHCP. jr8 11:07 Isidro Villa MD is Attending Physician. jr8 11:11 Mike Claros RN is Primary Nurse. jd3 11:37 Chest Single View XRAY In Process Unspecified. EDMS 11:41 CT Head Brain wo Cont In Process Unspecified. EDMS 12:07 Patient has correct armband on for positive identification. Placed in gown. Bed in low jd3 position. Call light in reach. Side rails up X2. marketing sales representative on. Pulse ox on. NIBP on. 12:22 Missed attempt(s): 22 gauge in right forearm. Bleeding controlled, band aid applied, jd3 catheter tip intact. 12:25 Inserted saline lock: 22 gauge in right forearm, using aseptic technique. ,using sv aseptic technique. diffusics Blood collected. Flushed right forearm with 5 ml normal saline. 13:11 Straight cath inserted, using sterile technique, 18 Fr. Specimen obtained. Returned tw2 cloudy urine. Patient tolerated well. piALGO TechnologiesSisteer served as reliability engineer. 14:03 Basic Metabolic Panel Sent. sv 14:03 Blood Culture Adult (2) Sent. sv 14:03 Urine Culture Sent. sv 15:08 Jac Barber DO is Hospitalizing Provider. jr8 15:29 Gabino Plummer MD is Hospitalizing Provider. jr8 19:16 Primary Nurse role handed off by Mike Claros, CHIDI mw2 19:29 No provider procedures requiring assistance completed. Patient transferred, IV remains mg2 in place. 20:36 Garcia Lorenzo, CHIDI is Primary Nurse. mg2 21:00 Notified Nurse Practitioner and/or Physician Lead Electrical Controls Engineer of a critical lab result(s), bb glucose of 467 Burton Jones BLOCKER HAND notified. 21:47 Report given to receiving RN. bb Administered Medications: 12:34 Drug: fentaNYL (PF) 50 mcg Route: IVP; Site: right forearm; jd3 13:30 Follow up: Response: No adverse reaction; RASS: Alert and Calm (0) jd3 13:39 Drug: NS 0.9% 1000 ml Route: IV; Rate: 1000 ml; Site: right forearm; jd3 14:30 Follow up: Response: No adverse reaction; IV Status: Completed infusion jd3 13:40 Drug: Insulin Regular Human 5 units {Co-Signature: ll1 (Flaco Steen RN).} Route: IVP; jd3 Site: right forearm; 14:40 Follow up: Response: No adverse reaction jd3 14:24 Drug: Rocephin 1 grams Route: IV; Rate: calculated rate; Site: right forearm; jd3 15:24 Follow up: Response: No adverse reaction; IV Status: Completed infusion jd3 15:00 Drug: Demerol 25 mg Route: IVP; Site: right forearm; jd3 16:00 Follow up: Response: No adverse reaction; RASS: Alert and Calm (0) jd3 16:30 Drug: Tylenol 1000 mg Route: PO; jd3 17:30 Follow up: Response: No adverse reaction jd3 16:30 Drug: NS 0.9% 1000 ml Route: IV; Rate: 1000 ml; Site: right forearm; jd3 17:30 Follow up: Response: No adverse reaction; IV Status: Completed infusion jd3 16:30 Drug: Metoprolol 5 mg Route: IVP; Site: right forearm; jd3 17:30 Follow up: Response: No adverse reaction jd3 19:40 Drug: NS 0.9% 500 ml Route: IV; Rate: bolus; Site: right forearm; mg2 20:43 Follow up: Response: No adverse reaction; IV Status: Completed infusion; IV Intake: mg2 500ml 19:47 Drug: NS 0.9% 1000 ml Route: IV; Rate: 100 ml/hr; Site: right forearm; mg2 20:15 Drug: Insulin Regular Human 10 units {Co-Signature: em (Carlos Perez RN).} Route: IVP; mg2 Site: right forearm; 20:17 Drug: Motrin 400 mg Route: PO; mg2 21:02 CANCELLED (Duplicate Order): Insulin Regular Human 10 units IVP once bb Intake: 20:43 IV: 500ml; Total: 500ml. mg2 Outcome: 15:10 Decision to Hospitalize by Provider. jr8 21:59 Admitted to Tele family with patient, via stretcher, with chart. mg2 21:59 Condition: stable 21:59 Instructed on the need for admit, Demonstrated understanding of instructions. 22:00 Patient left the ED. mg2 NIH Stroke Scale - NIH Stroke Score Date: 07/16/2020 Time: 12:09 Total Score = 0 1a. Level of Consciousness (LOC) - 0(Alert) 1b. Level of Consciousness (LOC) (Year \T\ Age) - 0(Both) 1c. LOC Commands (Open \T\ Closes Eyes/Surveillance Specialist) - 0(Both) 2. Best Gaze (Lateral Gaze Paresis) - 0(Normal) 3. Visual Field Loss - 0(No visual loss) 4. Facial Palsy - 0(Normal) 5a. Left Arm: Motor (10-second hold) - 0(No drift) 5b. Right Arm: Motor (10-second hold) - 0(No drift) 6a. Left Leg: Motor (5-second hold - always test supine) - 0(No drift) 6b. Right Leg: Motor (5-second hold - always test supine) - 9(Amputation, joint fusion) - Notes: right AKA 7. Limb Ataxia (finger/nose \T\ heel/valdivia - test with eyes open) - 0(Absent) 8. Sensory Loss (pinprick arms/legs/face) - 0(Normal) 9. Best Language: Aphasia (description/naming/reading) - 0(No aphasia) 10. Dysarthria (speech clarity - read or repeat words) - 0(Normal) 11. Extinction and Inattention (visual/tactile/auditory/spatial/personal) - 0(No abnormality) Initials: tadeo Signatures: Dispatcher [employer] Arpita Treviño RN RN Vangie Velze ds1 Kalee Sheehan RN RN bb Roszak, Josh, PA PA jr8 Jannet Duff RN RN 2 Mike Claros RN RN jd3 Saman Webber 2 Garcia Lorenzo RN RN mg2 Lewis, Lynsay, RN RN ll1 Flaco Steen RN ll1 Carlos Perez RN Corrections: (The following items were deleted from the chart) 16:37 16:36 NS 0.9% 1000 ml IV at 1000 ml in right forearm jd3 jd3 16:37 16:36 Metoprolol 5 mg IVP in right forearm jd3 jd3 17:21 17:16 Reassessment: Patient and/or family updated on plan of care and expected jd3 duration. Pain level reassessed. Patient is alert, oriented x 3, equal unlabored respirations, skin warm/dry/pink. report attempted made. 4th floor will call back Patient states feeling better. jd3 19: 19:08 Response: No adverse reaction; IV Status: Completed infusion jd3 jd3 19:26 19:11 BP 91 / 54; Pulse 103bpm; Resp 20bpm; Spontaneous; Pulse Ox 98% RA; jd3 jd3
--- NOTE | 2020-07-16 15:11 | EDPHYS ---
Physician Documentation [facility] Name: Karen Shah Age: 50 yrs Sex: Female : 1970 Arrival Date: 07/16/2020 Time: 09:53 Bed 4 Private MD: ED Physician Isidro Villa HPI: 07/16 12:09 This 50 yrs old Female presents to ER via Wheelchair with complaints of jr8 Headache. 12:09 Patient stated that she has history of stroke in the past. Was concerned she may be jr8 having another one. Started to have right sided headache, twitching in both hands, and feels weak in both arms. Stated that she has not been feeling well since last night. Son today had checked her temperature and told her that it was 101.3 at home. Severity of symptoms: At their worst the symptoms were moderate in the emergency department the symptoms are unchanged. It is unknown whether or not the patient has had similar symptoms in the past. The patient has not recently seen a physician. 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 - Social history:: Smoking status: Patient reports the use of cigarette tobacco products, smokes one-half pack cigarettes per day. ROS: 12:09 ENT: Negative for injury, pain, and discharge, Neck: Negative for injury, pain, and jr8 swelling, Cardiovascular: Negative for chest pain, palpitations, and edema, Respiratory: Negative for shortness of breath, cough, wheezing, and pleuritic chest pain, Abdomen/GI: Negative for abdominal pain, nausea, vomiting, diarrhea, and constipation, Back: Negative for injury and pain, Skin: Negative for injury, rash, and discoloration. 12:09 Constitutional: Positive for fever. 12:09 MS/extremity: Positive for pain, of the left leg. 12:09 Neuro: Positive for headache, weakness. Exam: 12:09 Eyes: Pupils equal round and reactive to light, extra-ocular motions intact. Lids and jr8 lashes normal. Conjunctiva and sclera are non-icteric and not injected. Cornea within normal limits. Periorbital areas with no swelling, redness, or edema. ENT: Nares patent. No nasal discharge, no septal abnormalities noted. Tympanic membranes are normal and external auditory canals are clear. Oropharynx with no redness, swelling, or masses, exudates, or evidence of obstruction, uvula midline. Mucous membranes moist. Neck: Trachea midline, no thyromegaly or masses palpated, and no cervical lymphadenopathy. Supple, full range of motion without nuchal rigidity, or vertebral point tenderness. No Meningismus. Cardiovascular: Regular rate and rhythm with a normal S1 and S2. No gallops, murmurs, or rubs. Normal PMI, no JVD. No pulse deficits. Respiratory: Lungs have equal breath sounds bilaterally, clear to auscultation and percussion. No rales, rhonchi or wheezes noted. No increased work of breathing, no retractions or nasal flaring. Abdomen/GI: Soft, non-tender, with normal bowel sounds. No distension or tympany. No guarding or rebound. No evidence of tenderness throughout. Back: No spinal tenderness. No costovertebral tenderness. Full range of motion. Skin: Warm, dry with normal turgor. Normal color with no rashes, no lesions, and no evidence of cellulitis. 12:09 Musculoskeletal/extremity: Extremities: noted in the right leg: AKA , noted in the left leg: pain with ROM but no other acute findings , Circulation is intact in all extremities. Sensation intact. 12:09 Neuro: Orientation: to person, place, time \T\ situation. Mentation: is normal, Memory: is normal, immediate memory is intact, recent memory is intact, remote memory is intact, Cranial nerves: CN I not tested, CN II- XII are normal as tested, extraocular movements are intact, Facial palsy and sensory deficits are absent. Nystagmus is absent. Speech is clear and appropriate. Tongue strength is normal, Cerebellar function: normal finger to nose testing, Motor: moves all fours, Sensation: no obvious gross deficits, seizure activity, is not displayed by the patient, Abnormal movements: there are no abnormal movements. 15:50 ECG was reviewed by the Attending Physician. jr8 Vital Signs: 09:59 BP 132 / 82; Pulse 128; Resp 17; Temp 99.0; Pulse Ox 100% ; Weight 66.68 kg; Height 5 ll1 ft. 4 in. (162.56 cm); Pain 9/10; 12:09 BP 112 / 74; Pulse 113; Resp 17 S; Pulse Ox 97% on R/A; jd3 13:11 BP 106 / 60; Pulse 108; Resp 17 S; Pulse Ox 98% on R/A; jd3 14:06 BP 116 / 76; Pulse 116; Resp 18; Pulse Ox 98% ; sv 15:34 BP 122 / 63; Pulse 117; Resp 18 S; Temp 99.5(O); Pulse Ox 97% on R/A; jd3 16:25 BP 181 / 97; Pulse 154; Resp 20 S; Temp 102.0(O); Pulse Ox 100% on R/A; jd3 16:36 BP 126 / 73; Pulse 125; Resp 19 S; Pulse Ox 100% on R/A; jd3 17:17 BP 98 / 62; Pulse 120; Resp 20 S; Pulse Ox 95% on R/A; jd3 18:15 BP 91 / 54; Pulse 103; Resp 20 S; Pulse Ox 98% on R/A; jd3 19:28 BP 91 / 54; Pulse 103; Resp 18; Temp 99.7; Pulse Ox 95% on R/A; mg2 21:29 BP 99 / 61; Pulse 109; Resp 17; Pulse Ox 95% on R/A; mg2 09:59 Body Mass Index 25.23 (66.68 kg, 162.56 cm) ll1 NIH Stroke Scale Scores: 12:09 NIHSS Score: 0 jr8 MDM: 11:08 Patient medically screened. 8 15:06 Data reviewed: vital signs, nurses notes, lab test result(s), EKG, radiologic studies, jr8 CT scan, plain films. Data interpreted: Pulse oximetry: on room air is 98 %. Interpretation: normal. Counseling: I had a detailed discussion with the patient and/or guardian regarding: the historical points, exam findings, and any diagnostic results supporting the discharge/admit diagnosis, lab results, radiology results, the need for further work-up and treatment in the hospital. ED course: Spoke with Dr. Plummer who accepted patient for admission . 07/16 11:23 Order name: Urine Culture jr8 07/16 11:23 Order name: Basic Metabolic Panel [facility] 07/16 11:23 Order name: Blood Culture Adult (2) 8 07/16 11:23 Order name: CBC with Diff; Complete Time: 12:59 [facility] 07/16 11:23 Order name: Ckmb; Complete Time: 12:59 8 07/16 11:23 Order name: CPK; Complete Time: 12:59 [facility] 07/16 11:23 Order name: Lactate; Complete Time: 12:59 [facility] 07/16 11:23 Order name: LFT's; Complete Time: 12:59 [facility] 07/16 11:23 Order name: Procalcitonin; Complete Time: 13:34 [facility] 07/16 11:23 Order name: Protime (+inr); Complete Time: 13:13 [facility] 07/16 11:23 Order name: Ptt, Activated; Complete Time: 13:13 [facility] 07/16 11:23 Order name: Troponin (emerg Dept Use Only); Complete Time: 12:59 [facility] 07/16 11:23 Order name: Urine Microscopic Only; Complete Time: 14:12 [facility] 07/16 11:24 Order name: Urine Culture EDME 07/16 11:24 Order name: Basic Metabolic Panel; Complete Time: 12:59 EDMS 07/16 11:24 Order name: Blood Culture EDME 07/16 12:15 Order name: Glucose, Ancillary Testing; Complete Time: 12:19 EDMS 07/16 13:28 Order name: COVID-19/FLU A+B; Complete Time: 13:34 EDMS 07/16 13:44 Order name: Urine Dipstick--Ancillary (enter results); Complete Time: 14:12 em1 07/16 15:27 Order name: Basic Metabolic Panel EDMS 07/16 15:27 Order name: Basic Metabolic Panel EDMS 07/16 15:27 Order name: CBC with Automated Diff EDMS 07/16 15:27 Order name: CBC with Automated Diff EDMS 07/16 15:27 Order name: Magnesium EDMS 07/16 15:27 Order name: Magnesium EDMS 07/16 19:55 Order name: Glucose mg2 07/16 20:06 Order name: Glucose, Ancillary Testing; Complete Time: 20:26 EDMS 07/16 21:00 Order name: Glucose Level EDMS 07/16 11:23 Order name: Cath; Complete Time: 13:54 07/16 11:23 Order name: Chest Single View XRAY; Complete Time: 11:58 07/16 11:23 Order name: Accucheck; Complete Time: 12:05 07/16 11:23 Order name: Cardiac monitoring; Complete Time: 12:05 07/16 11:23 Order name: EKG - Nurse/Tech; Complete Time: 12:05 07/16 11:23 Order name: IV Saline Lock - Large Bore; Complete Time: 12:29 07/16 11:23 Order name: Labs collected and sent; Complete Time: 12:29 07/16 11:23 Order name: O2 Per Protocol; Complete Time: 11:24 07/16 11:23 Order name: O2 Sat Monitoring; Complete Time: 11:24 07/16 11:23 Order name: Urine Dipstick-Ancillary (obtain specimen); Complete Time: 13:42 07/16 11:23 Order name: CT Head Brain wo Cont; Complete Time: 12:26 07/16 15:27 Order name: Consistent Carb (ADA) 2000 Sean EDMS 07/16 21:32 Order name: Glucose, Ancillary Testing EDMS EC:50 Rate is 113 beats/min. Rhythm is regular, Sinus tachycardia. QRS [place] is Normal. TN jr8 interval is normal at 144 msec. QRS interval is normal at 80 msec. QT interval is normal at 368 msec. No Q waves. T waves are Normal. No ST changes noted. Clinical impression: Sinus tachycardia. Interpreted by me. Reviewed by me. Administered Medications: 12:34 Drug: fentaNYL (PF) 50 mcg Route: IVP; Site: right forearm; jd3 13:30 Follow up: Response: No adverse reaction; RASS: Alert and Calm (0) jd3 13:39 Drug: NS 0.9% 1000 ml Route: IV; Rate: 1000 ml; Site: right forearm; jd3 14:30 Follow up: Response: No adverse reaction; IV Status: Completed infusion jd3 13:40 Drug: Insulin Regular Human 5 units {Co-Signature: ll1 (Flaco Steen RN).} Route: IVP; jd3 Site: right forearm; 14:40 Follow up: Response: No adverse reaction jd3 14:24 Drug: Rocephin 1 grams Route: IV; Rate: calculated rate; Site: right forearm; jd3 15:24 Follow up: Response: No adverse reaction; IV Status: Completed infusion jd3 15:00 Drug: Demerol 25 mg Route: IVP; Site: right forearm; jd3 16:00 Follow up: Response: No adverse reaction; RASS: Alert and Calm (0) jd3 16:30 Drug: Tylenol 1000 mg Route: PO; jd3 17:30 Follow up: Response: No adverse reaction jd3 16:30 Drug: NS 0.9% 1000 ml Route: IV; Rate: 1000 ml; Site: right forearm; jd3 17:30 Follow up: Response: No adverse reaction; IV Status: Completed infusion jd3 16:30 Drug: Metoprolol 5 mg Route: IVP; Site: right forearm; jd3 17:30 Follow up: Response: No adverse reaction jd3 19:40 Drug: NS 0.9% 500 ml Route: IV; Rate: bolus; Site: right forearm; mg2 20:43 Follow up: Response: No adverse reaction; IV Status: Completed infusion; IV Intake: mg2 500ml 19:47 Drug: NS 0.9% 1000 ml Route: IV; Rate: 100 ml/hr; Site: right forearm; mg2 20:15 Drug: Insulin Regular Human 10 units {Co-Signature: em (Carlos Perez RN).} Route: IVP; mg2 Site: right forearm; 20:17 Drug: Motrin 400 mg Route: PO; mg2 21:02 CANCELLED (Duplicate Order): Insulin Regular Human 10 units IVP once bb Disposition: 07/17 05:40 Co-signature as Attending Physician, Isidro Villa MD I agree with the assessment and chasity plan of care. Disposition: 07/16/20 15:10 Hospitalization ordered by Gabino Plummer for Observation. Preliminary diagnosis are Acute cystitis, Hyperglycemia, unspecified, Tachycardia, unspecified. - Bed requested for Telemetry/MedSurg (observation). - Status is Observation. mg2 - Condition is Stable. - Problem is new. - Symptoms have improved. NIH Stroke Scale - NIH Stroke Score Date: 07/16/2020 Time: 12:09 Total Score = 0 1a. Level of Consciousness (LOC) - 0(Alert) 1b. Level of Consciousness (LOC) (Year \T\ Age) - 0(Both) 1c. LOC Commands (Open \T\ Closes Eyes/Hobber) - 0(Both) 2. Best Gaze (Lateral Gaze Paresis) - 0(Normal) 3. Visual Field Loss - 0(No visual loss) 4. Facial Palsy - 0(Normal) 5a. Left Arm: Motor (10-second hold) - 0(No drift) 5b. Right Arm: Motor (10-second hold) - 0(No drift) 6a. Left Leg: Motor (5-second hold - always test supine) - 0(No drift) 6b. Right Leg: Motor (5-second hold - always test supine) - 9(Amputation, joint fusion) - Notes: right AKA 7. Limb Ataxia (finger/nose \T\ heel/valdivia - test with eyes open) - 0(Absent) 8. Sensory Loss (pinprick arms/legs/face) - 0(Normal) 9. Best Language: Aphasia (description/naming/reading) - 0(No aphasia) 10. Dysarthria (speech clarity - read or repeat words) - 0(Normal) 11. Extinction and Inattention (visual/tactile/auditory/spatial/personal) - 0(No abnormality) Initials: jr8 Signatures: Dispatcher [employer] EDMS Isidro Villa MD MD cha Ballard, Brenda, RN RN Jorge Barrow PA PA jr8 Mike Claros RN RN jd3 Anthony Short RN RN ja1 Garcia Lorenzo RN RN mg2 Lewis, Lynsay, RN RN ll1 Flaco Steen RN 1 Carlos Perez RN em Corrections: (The following items were deleted from the chart) 07/16 12:43 11:24 Influenza Screen (A \T\ B)+BA.LAB.BRZ ordered. EDMS EDMS 12:43 11:24 CORONAVIRUS+MR.LAB.BRZ ordered. EDME EDMS 15:29 15:10 Hospitalization Ordered by Jac Barber DO for Observation. Preliminary jr8 diagnosis is Acute cystitis; Hyperglycemia, unspecified; Tachycardia, unspecified. Bed requested for Telemetry/MedSurg (observation). Status is Observation. Condition is Stable. Problem is new. Symptoms have improved. jr8 16:48 15:29 07/16/2020 15:10 Hospitalization Ordered by Gabino Plummer MD for ja1 Observation. Preliminary diagnosis is Acute cystitis; Hyperglycemia, unspecified; Tachycardia, unspecified. Bed requested for Telemetry/MedSurg (observation). Status is Observation. Condition is Stable. Problem is new. Symptoms have improved. jr8 21:02 21:01 Insulin Regular Human 10 units IVP once ordered. bb bb 22:00 16:48 07/16/2020 15:10 Hospitalization Ordered by Gabino Plummer MD for mg2 Observation. Preliminary diagnosis is Acute cystitis; Hyperglycemia, unspecified; Tachycardia, unspecified. Bed requested for Telemetry/MedSurg (observation). Status is Observation. Condition is Stable. Problem is new. Symptoms have improved. ja1
[2020-07-16] MEDS ORDERED: GLUCAGON 1 MG/VIAL IM PRN (15:26)
[2020-07-16] MEDS ORDERED: D50W 25 GM/50 ML SYRINGE IV PRN (15:26)
--- NOTE | 2020-07-16 15:31 | P.HP ---
Certification for Inpatient Patient admitted to: Observation With expected LOS: >2 Midnights Patient will require the following post-hospital care: None Practitioner: I am a practitioner with admitting privileges, knowledge of patient current condition, hospital course, and medical plan of care. Services: Services provided to patient in accordance with Admission requirements found in Title 42 Section 412.3 of the Code of Federal Regulations Patient History Date of Service: 07/16/20 Reason for admission: UTI, suspected early sepsis, poorly controlled diabetes. History of Present Illness: 50 y o female pt with hx of DM type 2, HTN, CAD, Seizure disorder admitted for management of suspected sepsis and UTI.She was said to have had fever at home with highest measured at 101.5. She denied any cough, n/v, abd pain, diarrhea or headache. she does have some dysuria and poor urine flow. Labs done in the ED was concerning for UTI as she has significant wbc in urine sample. no leukocyte esterase noted however. Head CT was negative for any intracranial abnormalities. Her blood glucose was also noted to be elevated and she has reduced eGFR. Overall there was concern for sepsis ans she had persistently elevated pulse so she was started on IV antibiotics and IV fluid bolus and was admitted for further work up. Allergies tramadol Allergy (Mild, Verified 12/29/18 21:16) Hives/Rash adhesive tape Allergy (Verified 12/30/18 02:54) Hives ketorolac [From Toradol] Allergy (Verified 12/29/18 21:16) Hives/Rash Home Medications: Ranolazine [Ranexa] 500 mg PO BID 05/15/17 Aspirin 81 mg PO DAILY #30 tab.chew 05/16/17 Atorvastatin Calcium [Lipitor] 40 mg PO BEDTIME #30 tab 05/16/17 Clopidogrel Bisulfate [Plavix] 75 mg PO DAILY #30 tablet 05/16/17 Duloxetine HCl 30 mg PO DAILY #30 capsule. 05/16/17 levETIRAcetam [Levetiracetam] 500 mg PO BID #60 tablet 05/16/17 Pantoprazole [Protonix Tab*] 40 mg PO DAILY #30 tab 05/17/17 Insulin 70/30 NPH/Reg Human [Novolin 70/30*] 80 unit SQ BIDAC 12/30/18 Metformin HCl 1,000 mg PO BIDWM 12/30/18 Isosorbide Mononitrate [Isosorbide Mononitrate ER] 30 mg PO DAILY 12/31/18 Docosahexanoic AC/Epa [Fish Oil 1,000 MG CAP] 1 cap PO BID #60 cap 05/06/20 Folic Acid 1 mg PO DAILY #90 tablet 05/06/20 Gabapentin [Gabapentin] 900 mg PO TID #90 05/06/20 Metoprolol Tartrate [Lopressor*] 25 mg PO BID 6AM 6PM #60 tab 05/06/20 - Past Medical/Surgical History Diabetic: Yes -: Coronary artery disease -: Diabetes mellitus type 1 -: Chronic systolic congestive heart failure -: Hypertension -: CVA -: PAD -: Hypertension -: cva -: chf -: recurrent yeast infection -: triple bypass (heart) 2012 -: 2 C-Sections -: double bypass 2015 -: 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 -: Below knee amputation 2014 -: Above knee amputation 2014 -: Eye surgery for detached retina 2015 Psychosocial/ Personal History: Patient lives at home with her family - Family History Father -: Heart disease, Hypertension, Diabetes Notes: Pt's father of an [place] Mother -: Other (see notes) Notes: hyperlipidemia Brother -: Diabetes Notes: Brother recently diagnosed in 2016 Sister -: Hypertension - Social History Alcohol use: No CD- Drugs: No Caffeine use: Yes Review of Systems General: Fever, Chills, Weakness, Malaise Eyes: Unremarkable ENT: Unremarkable Respiratory: Unremarkable Cardiovascular: Unremarkable Gastrointestinal: Unremarkable Musculoskeletal: Unremarkable Integumentary: Unremarkable Neurological: Unremarkable Physical Examination - Physical Exam General: Alert, Oriented x3, Cooperative HEENT: Atraumatic, Normocephalic Neck: Supple Respiratory: Clear to auscultation bilaterally Cardiovascular: Regular rate/rhythm, Normal S1 S2, Other (tachycardia.) Gastrointestinal: Soft and benign Neurological: Normal speech, Normal strength at 5/5 x4 extr, Cranial nerves 3-12 intact - Studies Laboratory Data (last 24 hrs) 07/16/20 12:21: PT 11.2, INR 0.97, APTT 23.4 L 07/16/20 12:21: WBC 10.20, Hgb 15.7 H, Hct 44.2, Plt Count 282 07/16/20 12:21: Sodium 130 L, Potassium 3.5, BUN 9, Creatinine 1.24, Glucose 376 H, Total Bilirubin 0.8, AST 16, ALT 24, Alkaline Phosphatase 144 H Assessment and Plan - Plan 1.UTI/sepsis- UA is very concerning ansd she has fever and poorly controlled diabetes as a confounder. Urine culture has been taken. we will continue empiric rocephin pending urine culture report finalization. 2.DM type 2- Poorly controlled. SSI and long acting insulin staretd. Diabetic diet staretd. we will monitor blood glucose ACHS. 3.Hypertension- we will continue antihypertensive medications. 4.Seizure- we will continue antiseizure meds. 5.CAD- we will continue statin and antiplatelet meds. - Advance Directives Does patient have a Living Will: No Does patient have a Durable POA for Healthcare: No
[2020-07-16] MEDS: INSULIN 70/30 100 UNITS/ML SQ SCH (16:30)
[2020-07-16] MEDS ORDERED: METOPROLOL TARTRATE 5 MG/5 ML INJ IV ONE (16:39)
[2020-07-16] MEDS ORDERED: ACETAMINOPHEN 500 MG TAB ONE (16:39)
[2020-07-16] MEDS: METOPROLOL TAR 25 MG TAB PO SCH (18:00)
[2020-07-16] MEDS ORDERED: IBUPROFEN 400 MG TAB ONE (20:30)
[2020-07-16] MEDS: ATORVASTATIN 40 MG TAB PO SCH (22:52)
[2020-07-16] MEDS: levETIRAcetam 500 MG TAB PO SCH (22:52)
[2020-07-16] MEDS: GABAPENTIN 300 MG CAP PO SCH (22:52)
[2020-07-16] MEDS: NA CHLORIDE 0.9% 1,000 ML IV SCH (22:52)
[2020-07-16] MEDS: DOCOSAHEXANOIC AC/EPA 1000 MG PO SCH (22:52)
[2020-07-16] MEDS: INSULIN -REGULAR HUMAN 50 UNIT/0.5 ML ML SQ SCH (22:53)
[2020-07-17] MEDS ORDERED: NA CHLORIDE 0.9% 500 ML IV ONE ×2 (03:12→05:34)
[2020-07-17] MEDS: ACETAMINOPHEN 500 MG TAB PO PRN ×2 (03:22→21:24)
[2020-07-17] MEDS ORDERED: NA CHLORIDE 0.9% 500 ML ONE (05:56)
[2020-07-17] MEDS: METOPROLOL TAR 25 MG TAB PO SCH ×2 (06:00→17:14)
[2020-07-17 06:35] LABS: Absolute Lymphocytes (CBC) 0.8 K/uL (0.7-4.9); Basophils % 0.2 % (0-1.3); Lymphocytes % 10.9 % (15.3-44.8); MPV 8.6 fL (7.6-11.3); RBC Red Blood Cell Count 5.18 M/uL (3.86-4.86)
[2020-07-17 06:57] LABS: Magnesium 1.3 mg/dL (1.8-2.4); Potassium 3.2 mmol/L (3.5-5.1)
[2020-07-17] MEDS: INSULIN 70/30 100 UNITS/ML SQ SCH ×2 (07:30→17:15)
[2020-07-17] MEDS: INSULIN -REGULAR HUMAN 50 UNIT/0.5 ML ML SQ SCH ×5 (07:30→21:00)
[2020-07-17] MEDS ORDERED: Magnesium Sulfate 2gm IVPB 2 G/50 ML BAG IV ONE (07:33)
[2020-07-17] MEDS ORDERED: INSULIN 70/30 100 UNITS/ML SQ ONE (08:00)
[2020-07-17] MEDS ORDERED: INSULIN LISPRO 100 UNIT/1 ML SQ ONE (08:00)
[2020-07-17] MEDS: METFORMIN HCL 500 MG TAB PO SCH ×3 (08:00→17:14)
--- NOTE | 2020-07-17 08:31 | P.PN ---
Subjective Date of Service: 07/17/20 Chief Complaint: UTI, suspected early sepsis, poorly controlled diabetes. Physical Examination - Vital Signs Temperature: 98.1 F Blood Pressure: 87/46 Pulse: 100 Respirations: 12 Pulse Ox (%): 93 - Physical Exam General: Alert, Oriented x3 HEENT: Atraumatic, Normocephalic Neck: Supple Respiratory: Clear to auscultation bilaterally, Normal air movement Cardiovascular: Regular rate/rhythm, Normal S1 S2 Gastrointestinal: Soft and benign Neurological: Normal speech, Normal strength at 5/5 x4 extr, Cranial nerves 3-12 intact - Studies Laboratory Data (last 24 hrs) 07/16/20 12:21: PT 11.2, INR 0.97, APTT 23.4 L 07/16/20 12:21: WBC 10.20, Hgb 15.7 H, Hct 44.2, Plt Count 282 07/16/20 12:21: Sodium 130 L, Potassium 3.5, BUN 9, Creatinine 1.24, Glucose 376 H, Total Bilirubin 0.8, AST 16, ALT 24, Alkaline Phosphatase 144 H Assessment And Plan - Plan 1.UTI/sepsis- urine culture is growing 4+ gram negative rods. we will continue empiric rocephin pending urine culture report finalization. 2.DM type 2- Poorly controlled. SSI and long acting insulin started. Diabetic diet started. we will monitor blood glucose ACHS. 3.Hypertension- we will continue antihypertensive medications. 4.Seizure- we will continue antiseizure meds. 5.CAD- we will continue statin and antiplatelet meds.
[2020-07-17] MEDS ORDERED: KCL 20 MEQ/100 mL IVPB 20 MEQ/100 ML BAG IV SCH (09:00)
[2020-07-17] MEDS: GABAPENTIN 300 MG CAP PO SCH ×3 (09:06→21:25)
[2020-07-17] MEDS: DOCOSAHEXANOIC AC/EPA 1000 MG PO SCH ×2 (09:07→21:24)
[2020-07-17] MEDS: DULOXETINE 30 MG CAP PO SCH (09:07)
[2020-07-17] MEDS: FOLIC ACID 1 MG TABLET PO SCH (09:07)
[2020-07-17] MEDS: PANTOPRAZOLE 40MG TABLET PO SCH (09:07)
[2020-07-17] MEDS: levETIRAcetam 500 MG TAB PO SCH ×2 (09:07→21:24)
[2020-07-17] MEDS: ASPIRIN 81 MG CHEWABLE TABLET PO SCH (09:07)
[2020-07-17] MEDS: CLOPIDOGREL 75 MG TABLET PO SCH (09:08)
[2020-07-17] MEDS: ENOXAPARIN 40 MG/0.4 ML SQ SCH (09:08)
[2020-07-17] MEDS: ISOSORBIDE MONO SR 30 MG TAB PO SCH (09:08)
[2020-07-17] MEDS: NA CHLORIDE 0.9% 1,000 ML IV SCH ×3 (12:00→21:53)
[2020-07-17] MEDS: CEFTRIAXONE/SWI 1gm 1 GM/10 ML SYR IV SCH (12:03)
[2020-07-17] MEDS: MIDODRINE HCL 5 MG TABLET PO SCH ×2 (13:14→21:24)
[2020-07-17] MEDS ORDERED: TRAMADOL HCL 50 MG TAB PO PRN (15:49)
[2020-07-17] MEDS: HYDROCODONE/APAP 5/325 MG TAB PO PRN (17:13)
[2020-07-17] MEDS: ATORVASTATIN 40 MG TAB PO SCH (21:24)
[2020-07-17] MEDS: ONDANSETRON 4 MG/2 ML VIAL IV PRN (21:52)
[2020-07-17] MEDS ORDERED: HYDROCODONE/APAP 5/325 MG TAB PO ONE (21:54)
[2020-07-17] MEDS: PHENAZOPYRIDINE 100MG TAB PO PRN (22:05)
[2020-07-18] MEDS: HYDROCODONE/APAP 5/325 MG TAB PO PRN (02:10)
[2020-07-18] MEDS: METOPROLOL TAR 25 MG TAB PO SCH ×2 (06:00→17:42)
[2020-07-18] MEDS: NA CHLORIDE 0.9% 1,000 ML IV SCH ×2 (06:42→17:46)
[2020-07-18 08:14] LABS: Bilirubin Total 0.4 mg/dL (0.2-1.0); Magnesium 1.3 mg/dL (1.8-2.4); Potassium 3.3 mmol/L (3.5-5.1); Protein, Total 5.4 g/dL (6.4-8.2)
[2020-07-18 08:18] LABS: Absolute Lymphocytes (CBC) 0.9 K/uL (0.7-4.9); Basophils % 0.4 % (0-1.3); Hematocrit 35.2 % (36.0-45.0); Lymphocytes % 15.2 % (15.3-44.8); MPV 9.6 fL (7.6-11.3); RBC Red Blood Cell Count 3.94 M/uL (3.86-4.86)
[2020-07-18] MEDS ORDERED: POTASSIUM CL SA 10 MEQ TAB PO ONE ×2 (09:00→17:00)
[2020-07-18] MEDS ORDERED: Magnesium Sulfate 2gm IVPB 2 G/50 ML BAG IV ONE (09:00)
[2020-07-18] MEDS: METFORMIN HCL 500 MG TAB PO SCH ×2 (09:05→17:44)
[2020-07-18] MEDS: FOLIC ACID 1 MG TABLET PO SCH (09:07)
[2020-07-18] MEDS: DULOXETINE 30 MG CAP PO SCH (09:07)
[2020-07-18] MEDS: PANTOPRAZOLE 40MG TABLET PO SCH (09:09)
[2020-07-18] MEDS: ISOSORBIDE MONO SR 30 MG TAB PO SCH (09:09)
[2020-07-18] MEDS: levETIRAcetam 500 MG TAB PO SCH ×3 (09:09→21:00)
[2020-07-18] MEDS: DOCOSAHEXANOIC AC/EPA 1000 MG PO SCH ×3 (09:09→21:00)
[2020-07-18] MEDS: GABAPENTIN 300 MG CAP PO SCH ×4 (09:10→21:00)
[2020-07-18] MEDS: CLOPIDOGREL 75 MG TABLET PO SCH (09:10)
[2020-07-18] MEDS: ASPIRIN 81 MG CHEWABLE TABLET PO SCH (09:10)
[2020-07-18] MEDS: MIDODRINE HCL 5 MG TABLET PO SCH ×2 (09:10→13:58)
[2020-07-18] MEDS: ENOXAPARIN 40 MG/0.4 ML SQ SCH (09:10)
[2020-07-18] MEDS: INSULIN 70/30 100 UNITS/ML SQ SCH ×2 (09:11→17:45)
[2020-07-18] MEDS: INSULIN -REGULAR HUMAN 50 UNIT/0.5 ML ML SQ SCH ×4 (09:11→20:51)
[2020-07-18] MEDS: CEFTRIAXONE/SWI 1gm 1 GM/10 ML SYR IV SCH (12:41)
[2020-07-18] MEDS: CALCIUM CARBONATE 500 MG TAB PO SCH ×3 (13:59→21:00)
[2020-07-18 15:40] LABS: Magnesium 1.6 mg/dL (1.8-2.4); Potassium 3.2 mmol/L (3.5-5.1)
--- NOTE | 2020-07-18 16:15 | P.PN ---
Subjective Date of Service: 07/18/20 Chief Complaint: UTI, suspected early sepsis, poorly controlled diabetes. Subjective: Improving (feeling better. also reports tingling b/l hands (intermittent)) Review of Systems 10-point ROS is otherwise unremarkable Physical Examination - Vital Signs Temperature: 96.9 F Blood Pressure: 129/70 Pulse: 77 Respirations: 18 Pulse Ox (%): 98 - Studies Microbiology Data (last 24 hrs): 07/16/20 13:15 Catheterized Urine [place] Count - Final >100,000 CFU/ML. 07/16/20 13:15 Catheterized Urine - Final Escherichia Coli Assessment & Plan Physician Review Additional Text: Physical Exam General: Alert, Oriented x3 HEENT: Atraumatic, Normocephalic Neck: Supple Respiratory: Clear to auscultation bilaterally, Normal air movement Cardiovascular: Regular rate/rhythm, Normal S1 S2 Gastrointestinal: Soft and benign Neurological: Normal speech, Normal strength at 5/5 x4 extr, Cranial nerves 3-12 intact Assessment & Plan UTI/sepsis urine culture is growing 4+ gram negative rods. Cx pending continue empiric Rocephin pending urine culture symptomatically improving DM type 2 Poorly controlled. reports noncompliance A1c elevated SSI and long acting insulin started. Diabetic diet started. we will monitor blood glucose ACHS. not needing full home dose - likely due to forced compliance of diet / insulin here b/l hand tingling -phalens test negative -normal strength/sensation, no tingling at time of my exam, no swelling, no erythema -pt reports prior MRI ~3 months ago showing degenerative disc disease in neck and lower back, saw surgeon and didn't need any procedure -no recent trauma / injury, etc -recommended f/u with her physician Hypertension continue antihypertensive medications. Seizure continue antiseizure meds. CAD we will continue statin and antiplatelet meds. Dispo: anticipate dc home in 24 hrs Time Spent Managing Pts Care (In Minutes): 40
[2020-07-18] MEDS ORDERED: MAGNESIUM SULFATE 1 gm IVPB 1 GM/100 ML BAG IV ONE (17:00)
[2020-07-18] MEDS: ONDANSETRON 4 MG/2 ML VIAL IV PRN ×2 (17:53→22:57)
[2020-07-18] MEDS: ATORVASTATIN 40 MG TAB PO SCH ×2 (20:49→21:00)
[2020-07-18] MEDS: PHENAZOPYRIDINE 100MG TAB PO PRN (20:49)
[2020-07-18] MEDS: D50W 25 GM/50 ML VIAL IV PRN (20:59)
[2020-07-18] MEDS: ACETAMINOPHEN 500 MG TAB PO PRN (22:56)
[2020-07-19] MEDS: D50W 25 GM/50 ML VIAL IV PRN ×2 (00:58→04:46)
[2020-07-19] MEDS: NA CHLORIDE 0.9% 1,000 ML IV SCH (04:00)
[2020-07-19 07:03] LABS: Absolute Lymphocytes (CBC) 1.3 K/uL (0.7-4.9); Basophils % 0.7 % (0-1.3); Lymphocytes % 21.5 % (15.3-44.8); MPV 9.2 fL (7.6-11.3); RBC Red Blood Cell Count 4.35 M/uL (3.86-4.86)
[2020-07-19 07:28] LABS: ALT/SGPT 35 U/L (12-78); AST/SGOT 35 U/L (15-37); Albumin 2.2 g/dL (3.4-5.0); Alkaline Phosphatase 131 U/L (45-117); BUN Blood Urea Nitrogen 2 mg/dL (7-18); Bicarbonate 26 mmol/L (21-32); Bilirubin Total 0.3 mg/dL (0.2-1.0); Glucose Level 114 mg/dL (74-106); Phosphorus 1.8 mg/dL (2.5-4.9); Potassium 3.5 mmol/L (3.5-5.1); Protein, Total 6.2 g/dL (6.4-8.2); Sodium Level 142 mmol/L (136-145)
[2020-07-19] MEDS: INSULIN 70/30 100 UNITS/ML SQ SCH ×4 (07:30→16:09)
[2020-07-19] MEDS: INSULIN -REGULAR HUMAN 50 UNIT/0.5 ML ML SQ SCH ×5 (07:30→21:12)
[2020-07-19 07:31] LABS: Magnesium 1.4 mg/dL (1.8-2.4)
[2020-07-19] MEDS ORDERED: POTASSIUM CL SA 10 MEQ TAB PO ONE (09:00)
[2020-07-19] MEDS ORDERED: Magnesium Sulfate 2gm IVPB 2 G/50 ML BAG IV ONE (09:00)
[2020-07-19] MEDS: DOCOSAHEXANOIC AC/EPA 1000 MG PO SCH ×2 (09:14→21:12)
[2020-07-19] MEDS: PANTOPRAZOLE 40MG TABLET PO SCH (09:15)
[2020-07-19] MEDS: CALCIUM CARBONATE 500 MG TAB PO SCH ×2 (09:15→21:11)
[2020-07-19] MEDS: CLOPIDOGREL 75 MG TABLET PO SCH (09:15)
[2020-07-19] MEDS: levETIRAcetam 500 MG TAB PO SCH ×2 (09:15→21:12)
[2020-07-19] MEDS: METFORMIN HCL 500 MG TAB PO SCH ×2 (09:15→16:10)
[2020-07-19] MEDS: ISOSORBIDE MONO SR 30 MG TAB PO SCH (09:15)
[2020-07-19] MEDS: DULOXETINE 30 MG CAP PO SCH (09:15)
[2020-07-19] MEDS: FOLIC ACID 1 MG TABLET PO SCH (09:15)
[2020-07-19] MEDS: GABAPENTIN 300 MG CAP PO SCH ×3 (09:15→21:12)
[2020-07-19] MEDS: ENOXAPARIN 40 MG/0.4 ML SQ SCH (09:16)
[2020-07-19] MEDS: ASPIRIN 81 MG CHEWABLE TABLET PO SCH (09:16)
[2020-07-19] MEDS: CEFTRIAXONE/SWI 1gm 1 GM/10 ML SYR IV SCH (11:43)
--- NOTE | 2020-07-19 12:15 | P.PN ---
Subjective Date of Service: 07/19/20 Chief Complaint: UTI, suspected early sepsis, poorly controlled diabetes. Subjective: Improving (Overnight with hypoglycemia to 50s to 60s, patient refused to eat or drink anything. Reported feeling very fatigued at that time. This morning she states she feels better. continues with L leg pain (lateral hip down to anterior tibia)) Physical Examination - Vital Signs Temperature: 97.4 F Blood Pressure: 139/66 Pulse: 89 Respirations: 18 Pulse Ox (%): 99 - Studies Microbiology Data (last 24 hrs): 07/16/20 13:15 Catheterized Urine [place] Count - Final >100,000 CFU/ML. 07/16/20 13:15 Catheterized Urine - Final Escherichia Coli Assessment & Plan Physician Review Additional Text: Physical Exam General: Alert, Oriented x3 HEENT: Atraumatic, Normocephalic Neck: Supple Respiratory: Clear to auscultation bilaterally, Normal air movement Cardiovascular: Regular rate/rhythm, Normal S1 S2 Gastrointestinal: Soft and benign Ext: s/p R AKA, LLE: tender to palpation along lateral thigh /vastus lateralis Assessment & Plan UTI/sepsis bacteremia Urine and blood both growing E. coli continue empiric Rocephin symptomatically improving repeat blood culture today DM type 2 Poorly controlled. reports noncompliance A1c elevated SSI and long acting insulin started. Diabetic diet started. we will monitor blood glucose ACHS. not needing full home dose - likely due to forced compliance of diet / insulin here decrease scheduled dose today b/l hand tingling -Phalen's and Tinel's sign negative -normal strength/sensation, no tingling at time of my exam, no swelling, no erythema -pt reports prior MRI ~3 months ago showing degenerative disc disease in neck and lower back, saw surgeon and didn't need any procedure -no recent trauma / injury, etc -recommended f/u with her physician Lateral thigh pain does not seem neurologic, seems MSK some tenderness with palpation of lateral thigh muscles / vastus lateralis PT consulted, f/u with PCP Hypertension continue antihypertensive medications. Seizure continue antiseizure meds. CAD we will continue statin and antiplatelet meds. Dispo: anticipate dc home in 24-48 hrs, pending repeat blood culture Time Spent Managing Pts Care (In Minutes): 35
[2020-07-19] MEDS ORDERED: MAGNESIUM SULFATE 1 gm IVPB 1 GM/100 ML BAG IV ONE (20:00)
[2020-07-19] MEDS: ATORVASTATIN 40 MG TAB PO SCH (21:12)
[2020-07-19] MEDS: ACETAMINOPHEN 500 MG TAB PO PRN (21:19)
[2020-07-19 22:28] VITALS: BMI 25.5
[2020-07-20] MEDS: ACETAMINOPHEN 500 MG TAB PO PRN ×2 (03:25→21:06)
[2020-07-20 04:08] LABS: Basophils % 1.2 % (0-1.3); Hematocrit 37.7 % (36.0-45.0); Lymphocytes % 33.8 % (15.3-44.8); MPV 8.8 fL (7.6-11.3); RBC Red Blood Cell Count 4.23 M/uL (3.86-4.86)
[2020-07-20 04:25] LABS: Albumin 2.2 g/dL (3.4-5.0); Bilirubin Total 0.3 mg/dL (0.2-1.0); Magnesium 1.6 mg/dL (1.8-2.4); Phosphorus 2.1 mg/dL (2.5-4.9); Potassium 3.4 mmol/L (3.5-5.1); Protein, Total 6.1 g/dL (6.4-8.2)
[2020-07-20] MEDS ORDERED: POTASSIUM CL SA 10 MEQ TAB PO ONE ×2 (05:16→05:39)
[2020-07-20] MEDS ORDERED: MAGNESIUM SULFATE 1 gm IVPB 1 GM/100 ML BAG IV ONE (05:30)
[2020-07-20] MEDS: INSULIN 70/30 100 UNITS/ML SQ SCH ×2 (07:30→17:02)
[2020-07-20] MEDS: INSULIN -REGULAR HUMAN 50 UNIT/0.5 ML ML SQ SCH ×4 (07:30→21:04)
[2020-07-20] MEDS: ENOXAPARIN 40 MG/0.4 ML SQ SCH (08:27)
[2020-07-20] MEDS: CALCIUM CARBONATE 500 MG TAB PO SCH ×2 (08:28→21:05)
[2020-07-20] MEDS: GABAPENTIN 300 MG CAP PO SCH ×3 (08:28→21:00)
[2020-07-20] MEDS: DULOXETINE 30 MG CAP PO SCH (08:28)
[2020-07-20] MEDS: PANTOPRAZOLE 40MG TABLET PO SCH (08:28)
[2020-07-20] MEDS: ASPIRIN 81 MG CHEWABLE TABLET PO SCH (08:28)
[2020-07-20] MEDS: CLOPIDOGREL 75 MG TABLET PO SCH (08:28)
[2020-07-20] MEDS: ISOSORBIDE MONO SR 30 MG TAB PO SCH (08:29)
[2020-07-20] MEDS: levETIRAcetam 500 MG TAB PO SCH ×2 (08:29→21:05)
[2020-07-20] MEDS: FOLIC ACID 1 MG TABLET PO SCH (08:29)
[2020-07-20] MEDS: METFORMIN HCL 500 MG TAB PO SCH ×2 (08:29→17:02)
[2020-07-20] MEDS: DOCOSAHEXANOIC AC/EPA 1000 MG PO SCH ×2 (08:29→21:00)
[2020-07-20] MEDS: CEFTRIAXONE/SWI 1gm 1 GM/10 ML SYR IV SCH (11:34)
[2020-07-20] MEDS: LACTOBACILLUS/ACIDOPHILUS TAB PO SCH (17:02)
--- NOTE | 2020-07-20 18:04 | P.PN ---
Subjective Date of Service: 07/20/20 Chief Complaint: UTI, suspected early sepsis, poorly controlled diabetes. Subjective: Improving (feeling better, some mild nausea at times, decreased appetite, reports some diarrhea 3-4 times, denies abdominal pain. Bilateral hand tingling is nearly resolved, agitated. L hip pain improved as well) Review of Systems 10-point ROS is otherwise unremarkable Physical Examination - Vital Signs Temperature: 97.2 F Blood Pressure: 150/93 Pulse: 87 Respirations: 18 Pulse Ox (%): 98 Assessment & Plan Physician Review Additional Text: Physical Exam General: Alert, Oriented x3 HEENT: Atraumatic, Normocephalic Neck: Supple Respiratory: Clear to auscultation bilaterally, Normal air movement Cardiovascular: Regular rate/rhythm, Normal S1 S2 Gastrointestinal: Soft and benign Ext: s/p R AKA, LLE: tender to palpation along lateral thigh Assessment & Plan UTI/sepsis bacteremia Urine and blood both growing E. coli continue empiric Rocephin symptomatically improving repeat blood culture obtained on 07/19 discussed with ID - recommend awaiting final culture, can switch to PO if negative (if diarrhea improves), continue for 14 days, otherwise would need PICC and IV antibiotics to ensure appropriate concentrations start probiotic DM type 2 Poorly controlled. reports noncompliance A1c significantly elevated SSI and long acting insulin started. Diabetic diet started. we will monitor blood glucose ACHS. not needing full home dose - likely due to forced compliance of diet / insulin here b/l hand tingling -Phalen's and Tinel's sign negative -normal strength/sensation, no tingling at time of my exam, no swelling, no erythema -pt reports prior MRI ~3 months ago showing degenerative disc disease in neck and lower back, saw surgeon and didn't need any procedure -no recent trauma / injury, etc -recommended f/u with her physician Lateral thigh pain does not seem neurologic, seems MSK some tenderness with palpation of lateral thigh muscles / vastus lateralis PT consulted, f/u with PCP Hypertension continue antihypertensive medications. Seizure continue antiseizure meds. CAD we will continue statin and antiplatelet meds. Dispo: anticipate dc home in ~24 hrs, pending repeat blood culture / improvement of diarrhea Time Spent Managing Pts Care (In Minutes): 35
--- NOTE | 2020-07-20 18:54 | CON ---
History Of Present Illness: The patient is a 50-year-old female coming in with septic shock secondar y to urosepsis and bacteremia, secondary to E coli. The patient is currently being treated with IV a ntibiotic, Rocephin. The patient denies any headache, nausea, vomiting, chest pain, abdominal pain, constipation. Until yesterday, she had 3 loose bowel movement. Today, she is doing much better, but not able to eat much. Her sugars are running low, but her hemoglobin A1c was found to be 14 on admi ssion. The patient is quite noncompliant at home even though she was supposed to take 80 units of in sulin in the morning and in the evening. Past Medical History: Diabetes mellitus, diabetic neuropathy, peripheral arterial disease, right AKA , tobacco positive, hypercholesterolemia, stroke, hypertension, coronary artery disease, double bypas s surgery in 2016. Social History: Tobacco positive. Alcohol negative. Family History: Noncontributory. Medications: Rocephin. See MAR for other medications. Allergies: TRAMADOL, ADHESIVE TAPE, AND TORADOL. Review of Systems: Ten-point review was performed. Physical Examination: General: This is a 50-year-old female, very pleasant to talk to, not in any acute cardiopulmonary di stress. Vital Signs: Temperature 97, pulse 82, respirations 18, blood pressure 142/73. HEENT: Unremarkable. Neck: Supple. Lungs: Clear to auscultation. Heart: S1, S2. Regular. Abdomen: Soft, nontender. Bowel sounds present. Extremities: No edema. Laboratory Data: WBC 5.9, hemoglobin 12.9, platelets 309. Chemistry shows sodium 144, potassium 3.4 , chloride 109, bicarb 28, BUN 4, creatinine 0.7, glucose 84. Her albumin level is 2.2 and procalcit onin on admission was 0.87. Her chest x-ray on admission shows no acute infiltrates. A CT head done on admission shows no acute injuries. Assessment And Plan: A 50-year-old female, noncompliant, coming in with urosepsis and septic shock s econdary to Escherichia coli. The patient also has bacteremia, pending blood culture. Repeat blood cultures. We will monitor and adjust antibiotic for 2 weeks after the negative blood cultures. Can be switched to oral if the patient continue to have no diarrhea. We will follow the patient closely. Thank you Dr. Nixon for consult. NF/KANDIS Voice ID: [id number] Report ID: [id number]
[2020-07-20] MEDS: ATORVASTATIN 40 MG TAB PO SCH (21:05)
[2020-07-20] MEDS: ONDANSETRON 4 MG/2 ML VIAL IV PRN (22:43)
[2020-07-21 04:32] LABS: Absolute Lymphocytes (CBC) 2.1 K/uL (0.7-4.9); Basophils % 1.2 % (0-1.3); Hematocrit 37.4 % (36.0-45.0); Lymphocytes % 35.9 % (15.3-44.8); MPV 8.6 fL (7.6-11.3); RBC Red Blood Cell Count 4.22 M/uL (3.86-4.86)
[2020-07-21 05:02] LABS: Potassium 3.4 mmol/L (3.5-5.1)
[2020-07-21 05:07] LABS: Magnesium 1.3 mg/dL (1.8-2.4)
[2020-07-21] MEDS ORDERED: POTASSIUM CL SA 10 MEQ TAB PO ONE ×2 (06:12→06:33)
[2020-07-21] MEDS: INSULIN -REGULAR HUMAN 50 UNIT/0.5 ML ML SQ SCH ×3 (07:30→17:37)
[2020-07-21] MEDS: GABAPENTIN 300 MG CAP PO SCH ×2 (09:00→14:00)
[2020-07-21] MEDS: LACTOBACILLUS/ACIDOPHILUS TAB PO SCH (10:34)
[2020-07-21] MEDS: METFORMIN HCL 500 MG TAB PO SCH ×2 (10:34→17:36)
[2020-07-21] MEDS: FOLIC ACID 1 MG TABLET PO SCH (10:34)
[2020-07-21] MEDS: PANTOPRAZOLE 40MG TABLET PO SCH (10:34)
[2020-07-21] MEDS: CLOPIDOGREL 75 MG TABLET PO SCH (10:35)
[2020-07-21] MEDS: ISOSORBIDE MONO SR 30 MG TAB PO SCH (10:35)
[2020-07-21] MEDS: CALCIUM CARBONATE 500 MG TAB PO SCH (10:35)
[2020-07-21] MEDS: levETIRAcetam 500 MG TAB PO SCH (10:35)
[2020-07-21] MEDS: DOCOSAHEXANOIC AC/EPA 1000 MG PO SCH (10:35)
[2020-07-21] MEDS: ENOXAPARIN 40 MG/0.4 ML SQ SCH (10:36)
[2020-07-21] MEDS: DULOXETINE 30 MG CAP PO SCH (10:36)
[2020-07-21] MEDS: ASPIRIN 81 MG CHEWABLE TABLET PO SCH (10:36)
[2020-07-21] MEDS: Magnesium Sulfate 2gm IVPB 2 G/50 ML BAG IV SCH ×2 (10:44→15:00)
[2020-07-21] MEDS: INSULIN 70/30 100 UNITS/ML SQ SCH ×2 (10:48→17:36)
--- NOTE | 2020-07-21 10:49 | P.PN ---
Subjective Date of Service: 07/21/20 Chief Complaint: UTI, suspected early sepsis, poorly controlled diabetes. Subjective: Other (Josette is feeeling well today however last night she had a fall after going to the bathroom. Patient states she fell on her bed and denies LOC, dizzyness, heachde, or visual changes. She has no wounds from the fall but does have left facial tnederness.) Review of Systems 10-point ROS is otherwise unremarkable Physical Examination - Vital Signs Temperature: 96.8 F Blood Pressure: 136/71 Pulse: 86 Respirations: 16 Pulse Ox (%): 98 - Physical Exam General: Alert, In no apparent distress HEENT: Atraumatic, Normocephalic Neck: Supple, 2+ carotid pulse no bruit, JVD not distended Respiratory: Clear to auscultation bilaterally, Normal air movement Cardiovascular: No edema, Normal pulses Capillary refill: <2 Seconds Gastrointestinal: Normal bowel sounds, Soft and benign Musculoskeletal: Other (right AKA) Integumentary: No rashes, No breakdown, No significant lesion - Studies Laboratory Last Values WBC 7.60 K/uL (4.3-10.9) D 07/17/20 05:48 RBC 5.18 M/uL (3.86-4.86) H 07/17/20 05:48 Hgb 14.8 g/dL (12.0-15.0) 07/17/20 05:48 Hct 46.0 % (36.0-45.0) H 07/17/20 05:48 MCV 88.9 fL (80-100) 07/17/20 05:48 MCH 28.6 pg (27.0-35.0) 07/17/20 05:48 MCHC 32.2 g/dL (32.0-36.0) D 07/17/20 05:48 RDW 16.1 % (12.1-15.2) H D 07/17/20 05:48 Plt Count 214 K/uL (152-406) D 07/17/20 05:48 MPV 8.6 fL (7.6-11.3) 07/17/20 05:48 Neutrophils % 76.5 % (41.7-73.7) H 07/17/20 05:48 Lymphocytes % 10.9 % (15.3-44.8) L 07/17/20 05:48 Monocytes % 11.3 % (3.3-12.3) 07/17/20 05:48 Eosinophils % 1.1 % (0-4.4) 07/17/20 05:48 Basophils % 0.2 % (0-1.3) 07/17/20 05:48 Absolute Neutrophils 5.8 K/uL (1.8-8.0) 07/17/20 05:48 Absolute Lymphocytes 0.8 K/uL (0.7-4.9) 07/17/20 05:48 Absolute Monocytes 0.9 K/uL (0.1-1.3) 07/17/20 05:48 Absolute Eosinophils 0.1 K/uL (0-0.5) 07/17/20 05:48 Absolute Basophils 0.0 K/uL (0-0.5) 07/17/20 05:48 PT 11.2 SECONDS (9.5-12.5) 07/16/20 12:21 INR 0.97 07/16/20 12:21 APTT 23.4 SECONDS (24.3-36.9) L 07/16/20 12:21 Sodium 137 mmol/L (136-145) 07/17/20 05:48 Potassium 3.2 mmol/L (3.5-5.1) L 07/17/20 05:48 Chloride 106 mmol/L (98-107) D 07/17/20 05:48 Carbon Dioxide 21 mmol/L (21-32) 07/17/20 05:48 BUN 14 mg/dL (7-18) 07/17/20 05:48 Creatinine 0.99 mg/dL (0.55-1.3) 07/17/20 05:48 Estimated GFR 60 mL/min (=/>90) L 07/17/20 05:48 Glucose 425 mg/dL (74-106) H* 07/17/20 05:48 POC Glucose 150 mg/dL (65-120) H 07/17/20 15:38 Lactic Acid 1.6 mmol/L (0.4-2.0) 07/16/20 12:21 Calcium 7.1 mg/dL (8.5-10.1) L 07/17/20 05:48 Magnesium 1.3 mg/dL (1.8-2.4) L* 02/19/21 05:48 Total Bilirubin 0.8 mg/dL (0.2-1.0) 07/16/20 12:21 Direct Bilirubin 0.2 mg/dL (0-0.2) 07/16/20 12:21 AST 16 U/L (15-37) 07/16/20 12:21 ALT 24 U/L (12-78) 07/16/20 12:21 Alkaline Phosphatase 144 U/L (45-117) H 07/16/20 12:21 Creatine Kinase 99 U/L (26-192) 07/16/20 12:21 CK-MB (CK-2) 1.3 ng/mL (0.3-3.6) 07/16/20 12:21 Rapid Troponin I < 0.02 ng/mL (0.0-0.045) 07/16/20 12:21 Serum Total Protein 7.9 g/dL (6.4-8.2) 07/16/20 12:21 Albumin 3.3 g/dL (3.4-5.0) L 07/16/20 12:21 Globulin 4.6 g/dL (2.3-3.5) H 07/16/20 12:21 Albumin/Globulin Ratio 0.7 (1.1-1.8) L 07/16/20 12:21 Procalcitonin 0.87 ng/mL (<0.050) H 07/16/20 12:21 Urine pH 5.0 (5.0-7.0) 07/16/20 13:44 Ur Specific [place] 1.010 (1.005-1.030) 07/16/20 13:44 Glucose (UA)(Auto) 3+ (NEG) H 07/16/20 13:44 Urine Ketones Negative (NEG) 07/16/20 13:44 Urine Blood Negative (NEG) 07/16/20 13:44 Urine Nitrite Negative (NEG) 07/16/20 13:44 Ur Leukocyte Esterase Negative (NEG) 07/16/20 13:44 Urine RBC <5 /HPF (NONE SEEN) 07/16/20 13:15 Urine WBC 5-10 /HPF (<5) H 07/16/20 13:15 Ur Squamous Epith Cells 5-10 /HPF (NONE SEEN) H 07/16/20 13:15 Urine Bacteria 20-50 /HPF (<20) H 07/16/20 13:15 Urine Mucus 1+ /HPF (NONE SEEN) 07/16/20 13:15 Urine Culture Reflexed Not needed 07/16/20 13:15 Urine Total Protein Negative (NEG) 07/16/20 13:44 Influenza Type A RNA Negative (NEGATIVE) 07/16/20 12:30 Influenza Type B RNA Negative (NEGATIVE) 07/16/20 12:30 SARS-CoV-2 RNA (RT-PCR) Negative (NEGATIVE) 07/16/20 12:30 Assessment & Plan Physician Review: Patient Assessed, Agree with Above Assessment and Plan Physician Review Additional Text: Assessment: -urosepsis and septic sock secondary to E.coli. -uncontrolled DM type 1 -HX of CVA and CAD Plan: -patient currently on IV ceftriaxone. Patient denies diarrhea, with no diarrhea over 48 hr time span. As such, can switch patient to oral antibiotic for DC. Recommend Omnicef. Continue antibiotics for 2 weeks after negative blood culture. Negative culture reported on 07/19. -medical management per primary team -continue to monitor CBC and BMP -continue to monitor for signs of infection Plan of care discussed with Dr. Hankins.
[2020-07-21] MEDS: ONDANSETRON 4 MG/2 ML VIAL IV PRN (10:59)
[2020-07-21 11:09] VITALS: O2SAT 98
[2020-07-21] MEDS: CEFTRIAXONE/SWI 1gm 1 GM/10 ML SYR IV SCH (13:08)
--- NOTE | 2020-07-21 13:08 | P.DS ---
Admission Date: 07/17/20 Discharge Date: 07/21/20 Disposition: ROUTINE DISCHARGE Discharge Condition: FAIR Reason for Admission: UTI, suspected early sepsis, poorly controlled diabetes. Consultations: Infectious Disease-Dr. Hankins. - Problems (1) E coli bacteremia Current Visit: Yes Status: Acute (2) E. coli UTI Current Visit: Yes Status: Acute (3) Seizure disorder Current Visit: Yes Status: Acute (4) Diabetes mellitus Current Visit: No Status: Acute Qualifiers: (5) Coronary artery disease Onset Date: 05/16/17 Current Visit: No Status: Chronic Qualifiers: Coronary Disease-Associated Artery/Lesion type: [place] artery [place] vs. transplanted heart: [place] heart Associated angina: without angina Qualified Code(s): I25.10 - Atherosclerotic heart disease of [place] coronary artery without angina pectoris (6) S/P AKA (above knee amputation) unilateral Current Visit: No Status: Chronic Brief History of Present Illness: 50-year-old woman with a history of DM type 2, hypertension, coronary artery disease, seizure disorder was brought to the emergency department due to fever at home. Labs done in the ED suggested UTI. CT head done was negative for any intracranial abnormality. There was a concern for sepsis, patient was started on IV fluid, IV antibiotics and admitted for further management. Hospital Course: Patient admitted to the medical floor and started on IV Rocephin. Her urine culture grew E. coli. Blood culture also grew E. coli which is shane sensitive except resistant to Bactrim. Patient received 4 days of IV antibiotic therapy. Repeat blood culture on 07/19/2020 has yielded no growth to date. Patient had episodes of diarrhea which has resolved. She was seen and evaluated by infectious Disease who assisted with antibiotic treatment and now recommend oral Cefdinir for 2 more weeks. Patient blood sugar readings were elevated. Hemoglobin A1c measured was 14 denoting uncontrolled diabetes. Patient started on Novolin 70/30, 20 units b.i.d.. Also continued her Metformin. Patient will be discharged with antibiotics as recommended by ID and insulin therapy for diabetes management. She is informed to follow with the PCP within 1-2 weeks. Diabetic teaching including hypoglycemia done. Vital Signs/Physical Exam: Temp Pulse Resp BP Pulse Ox 96.7 F L 83 16 150/77 H 99 07/21/20 11:57 07/21/20 11:57 07/21/20 11:57 07/21/20 11:57 07/21/20 11:57 General: Alert, In no apparent distress, Oriented x3 Neck: Supple, JVD not distended Respiratory: Clear to auscultation bilaterally, Normal air movement Cardiovascular: Regular rate/rhythm, Normal S1 S2 Gastrointestinal: Normal bowel sounds, Soft and benign, Non-distended Musculoskeletal: No swelling, No tenderness Integumentary: No rashes Neurological: Normal strength at 5/5 x4 extr Laboratory Data at Discharge: WBC 5.80 K/uL (4.3-10.9) 07/21/20 03:44 Hgb 13.0 g/dL (12.0-15.0) 07/21/20 03:44 Hct 37.4 % (36.0-45.0) 07/21/20 03:44 Plt Count 326 K/uL (152-406) 07/21/20 03:44 PT 11.2 SECONDS (9.5-12.5) 07/16/20 12:21 INR 0.97 07/16/20 12:21 APTT 23.4 SECONDS (24.3-36.9) L 07/16/20 12:21 Sodium 140 mmol/L (136-145) 07/21/20 03:44 Potassium 3.4 mmol/L (3.5-5.1) L 07/21/20 03:44 BUN 7 mg/dL (7-18) 07/21/20 03:44 Creatinine 0.85 mg/dL (0.55-1.3) 07/21/20 03:44 Glucose 109 mg/dL (74-106) H 07/21/20 03:44 Phosphorus 2.1 mg/dL (2.5-4.9) L 07/20/20 03:28 Magnesium 1.3 mg/dL (1.8-2.4) L* 07/21/20 03:44 Total Bilirubin 0.3 mg/dL (0.2-1.0) 07/20/20 03:28 AST 18 U/L (15-37) 07/20/20 03:28 ALT 28 U/L (12-78) 07/20/20 03:28 Alkaline Phosphatase 128 U/L (45-117) H 07/20/20 03:28 Home Medications: Aspirin 81 mg PO DAILY #30 tab.chew 05/16/17 Atorvastatin Calcium [Lipitor] 40 mg PO BEDTIME #30 tab 05/16/17 Clopidogrel Bisulfate [Plavix] 75 mg PO DAILY #30 tablet 05/16/17 Duloxetine HCl 30 mg PO DAILY #30 capsule.dr 05/16/17 Pantoprazole [Protonix Tab*] 40 mg PO DAILY #30 tab 05/17/17 Insulin 70/30 NPH/Reg Human [Novolin 70/30*] 84 unit SQ BIDAC 12/30/18 Metformin HCl 1,000 mg PO BIDWM 12/30/18 Isosorbide Mononitrate [Isosorbide Mononitrate ER] 30 mg PO DAILY 12/31/18 Docosahexanoic AC/Epa [Fish Oil 1,000 MG*] 1 cap PO BID #60 cap 05/06/20 Folic Acid 1 mg PO DAILY #90 tablet 05/06/20 Gabapentin 800 mg PO TID 07/18/20 Metoprolol Succinate 100 mg PO DAILY 07/18/20 Alcohol Antiseptic Pads [Alcohol Swabs] 1 each TP TID #100 med..pad 07/21/20 Blood Sugar Diagnostic [Glucose Test Strip] 1 each MC TID #100 strip 07/21/20 Blood-Glucose Meter [Contour] 1 each MC TID #1 kit 07/21/20 Calcium Carbonate [Oscal*] 1,000 mg PO BID #60 tab 07/21/20 Cefdinir [Omnicef] 300 mg PO BID #20 capsule 07/21/20 Insulin 70/30 NPH/Reg Human [Novolin 70/30*] 20 unit SQ BIDAC #10 ml 07/21/20 Lactobacillus Acidophilus [Acidophilus] 1 each PO TID #90 tablet 07/21/20 Lancets [Lancets Thin] 1 each MC TID #100 each 07/21/20 Metformin HCl [Glucophage*] 1,000 mg PO BIDWM #60 tab 07/21/20 Phenazopyrididine [Pyridium*] 100 mg PO TID PRN #21 tab 07/21/20 Ranolazine [Ranolazine ER] 500 mg PO BID #60 tab.er.12h 07/21/20 Syring-Needl,Disp,Insul,0.3 ml [Insulin Syringe] 1 each MC TID #100 disp.syrin 07/21/20 levETIRAcetam [Keppra*] 500 mg PO BID #60 tab 07/21/20 New Medications: Lactobacillus Acidophilus [Acidophilus] 1 each PO TID #90 tablet Alcohol Antiseptic Pads [Alcohol Swabs] 1 each TP TID #100 med..pad Blood-Glucose Meter [Contour] 1 each MC TID #1 kit Metformin HCl [Glucophage*] 1,000 mg PO BIDWM #60 tab Blood Sugar Diagnostic [Glucose Test Strip] 1 each MC TID #100 strip Syring-Needl,Disp,Insul,0.3 ml [Insulin Syringe] 1 each MC TID #100 disp.syrin levETIRAcetam [Keppra*] 500 mg PO BID #60 tab Lancets [Lancets Thin] 1 each MC TID #100 each Insulin 70/30 NPH/Reg Human [Novolin 70/30*] 20 unit SQ BIDAC #10 ml Cefdinir [Omnicef] 300 mg PO BID #20 capsule Calcium Carbonate [Oscal*] 1,000 mg PO BID #60 tab Phenazopyrididine [Pyridium*] 100 mg PO TID PRN #21 tab PRN Reason: Pain Scale 2-4 (Mild) Ranolazine [Ranolazine ER] 500 mg PO BID #60 tab.er.12h Diet: ADA Activity: Fall precautions Followup: Dev Zavala MD [Primary Care Provider] - 1 Week (call to schedule appointment) Time spent managing pt's care (in minutes): 45
--- NOTE | 2020-07-21 13:52 | RAD REPORT ---
EXAM DESCRIPTION: RAD - Sinus 3/+ Views - 07/21/2020 1:31 pm CLINICAL HISTORY: Fall, left-sided facial trauma COMPARISON: No comparisons FINDINGS: No facial bone fracture identifiable. Nasal septum is midline. No air-fluid level in the p aranasal sinuses. Condyles of the mandible are normally positioned. No nasal bone fracture identifiab le. IMPRESSION: No facial bone or sinus abnormality identifiable.
[2020-07-21 16:29] VITALS: BP 162/82; TEMP 96.8
== END 2020-07-21 19:15 | disposition home or self-care (01) | DRG 871 ==
LOC: ER 09:51 → ERHOLD 15:23 → 4TH 19:36 → OBSVTOIN 07-17 16:10
PROVIDERS: ADMIT Internal Medicine Nephrology; ATTEND Internal Medicine
DX: A41.51 Sepsis due to Escherichia coli [E. coli] (principal); R65.21 Severe sepsis with septic shock; N39.0 Urinary tract infection, site not specified; I50.22 Chronic systolic (congestive) heart failure; I11.0 Hypertensive heart disease with heart failure; E11.51 Type 2 diabetes mellitus with diabetic peripheral angiopathy without gangrene; E11.649 Type 2 diabetes mellitus with hypoglycemia without coma; F17.210 Nicotine dependence, cigarettes, uncomplicated; M79.652 Pain in left thigh; I25.10 Atherosclerotic heart disease of native coronary artery without angina pectoris; R20.2 Paresthesia of skin; R56.9 Unspecified convulsions; Z88.5 Allergy status to narcotic agent; Z88.8 Allergy status to other drugs, medicaments and biological substances; Z91.048 Other nonmedicinal substance allergy status; Z79.82 Long term (current) use of aspirin; Z79.02 Long term (current) use of antithrombotics/antiplatelets; Z79.4 Long term (current) use of insulin; Z79.899 Other long term (current) drug therapy; Z86.73 Personal history of transient ischemic attack (TIA), and cerebral infarction without residual deficits; Z89.421 Acquired absence of other right toe(s); Z89.519 Acquired absence of unspecified leg below knee; Z91.19 Patient's noncompliance with other medical treatment and regimen; Z89.611 Acquired absence of right leg above knee; Z20.822 Contact with and (suspected) exposure to COVID-19
CPT/HCPCS: 0240U; 36415; 51702; 70220; 70450; 71045; 80048; 80053; 80076; 81003; 81015; 82550; 82553; 82947; 83036; 83605; 83735; 84100; 84132; 84145; 84484; 85025; 85610; 85730; 87040; 87077; 87086; 87088; 87186; 87205; 93005; 96361; 96365; 96375; 97161; 99285; G0378; J0696; J1650; J1815; J2175; J2405; J3010; J3475; J3480; J7030; J7040

== ENCOUNTER 2020-09-28 13:14 | Emergency (ER) | payer OTHER ==
--- OUTSIDE RECORDS SUMMARY | 2020-09-28 13:17 | XMS REPORT | Continuity of Care Document ---
:1970 Author Organization Formerly [facility] t Address [address] [place] [address] Care Team Providers Name Role Phone Lucas BROWN, Bennie Attending Clinician Lisa MURILLO, A Attending Clinician Unavailable Pascual Livingston Attending Clinician Enzo BROWN, S Attending Clinician Alessandra BROWN Attending Clinician Tomás BROWN Attending Clinician Mark BROWN, H Attending Clinician Tomás BROWN Admitting Clinician Problems Condition Condition Condition Status Onset [...] with with l hyperglyce hyperglyce Ou tpati filomena filomena ent Clinics Type 2 Type [address] [facility] diabetes diabetes [facility] - mellitus mellitus Memori a with other with other l specified specified Outp ati complicati complicati en t on on Clinics Hx of CABG Hx of CABG Problem Active [facility] Chronic Chronic Problem Active [facility] pain pain [facility] - disorder disorder 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 a 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 [facility] current current [facility] - use of use of Memoria insulin insulin l [facility] Neuropathy Neuropathy Problem Active [facility] Depression Depression Problem Active [facility] with with [facility] - anxiety anxiety Memoria l [facility] HTN HTN Problem Active [facility] (hypertens (hypertens Charley kes - ion), ion), Memoria benign benign l [facility] Seizures Seizures Problem [facility] Coronary Coronary Problem [facility] artery artery [facility] - disease disease Memoria involving involving l coronary coronary Outpat i bypass bypass ent graft of graft of [facility] [place] [facility] heart with angina angina pectoris pectoris Dependent Dependent Problem Active [facility] on on [facility] - wheelchair wheelchair Me moria l [facility] History of History of Problem Active [facility] right right [facility] - above knee above knee Me moria amputation amputation [facility] Allergies, Adverse Reactions, Alerts Allergy Allergy Status Severity Reaction(s) Onset Inactive Treating Comm ents Source Name Type Date Date Clinician Toradol Adverse Active Info Not [facility] Reaction Available [facility] tramadol Adverse Active Info Not [facility] Reaction Available [facility] Medications Ordered Filled Start Stop Current Ordering Indication Dosage Frequency Signature Comments Components Source Medication Medication Date Date Medication? Clinician (SIG) Name Name Atorvastati Atorvastati Yes Dada [address] [facility] n Calcium n Calcium Horan [facility] - Memoria [facility] Lexapro Lexapro Yes Dada [address] [facility] Metoprolol Metoprolol Yes Dada [address] [facility] [address] Tartrate Tartrate Horan with food L ukes - [facility] Clinics Ranexa Ranexa Yes Dada 1 tablet [facility] Clinics Insulin Insulin Yes Dada [address] [facility] [address] Aspart Prot Aspart Prot Horan BID [facility] Aspirin Aspirin Yes Dada [address] [facility] Gabapentin Gabapentin Yes Dada [address] [facility] Furosemide Furosemide Yes Dada [address] [facility] Duloxetine Duloxetine Yes Dada [address] [facility] HCl HCl [facility]an [facility] Xanax Xanax Yes Dada [address] [facility] Clopidogrel Clopidogrel Yes Dada [address] [facility] Bisulfate Bisulfate [facility]an [facility] Metformin Metformin Yes Dada [address] [facility] HCl HCl Horan with meals [facility] Pantoprazol Pantoprazol Yes Dada [address] [facility] e Sodium e Sodium Horan [facility] Klor-Con Klor-Con Yes Dada [address] M10 M10 Horan with food [facility] Duloxetine Duloxetine Yes Dada [address] [facility] HCl HCl [facility]an [facility] Levetiracet Levetiracet Yes Dada [address] [facility] am am [facility]an [facility] [place] Yes Dada [address] [facility] Horan as needed [facility] Lexapro Lexapro Yes Dada [address] [facility] Atorvastati Atorvastati Yes Dada [address] [facility] n Calcium n Calcium Horan [facility] Clopidogrel Clopidogrel Yes Dada [address] [facility] [address] Bisulfate Bisulfate Horan [facility] Furosemide Furosemide Yes Dada [address] [facility] Procedures This patient has no known procedures. Encounters Start End Encounter Admission Attending Care Care Encounter Source Date/Time Date/Time Type Type Clinicians Facility Department ID 2020-09-26 2020-09-26 RefVICKI Walker [id number] 00:00:00 00:00:00 [facility] [id number] [place] [id number] Professio [phone] nal [address] 2020-09-24 2020-09-24 Refill Lucas [facility] [id number] 00:00:00 00:00:00 [facility] [id number] [place] [id number] Professio [id number] nal 0[address] 2020-09-11 2020-09-11 Refill Lucas [facility] [id number] 00:00:00 00:00:00 [facility] [id number] [place] [id number] Professio [phone] nal 044 [address] 2020-09-09 2020-09-09 Transition Matthew Gonzalez [id number] 00:00:00 00:00:00 of Care Garcia A Mata [id number] [place] [id number] 2020-09-04 2020-09-07 [facility] [id number] 20:58:00 18:15:00 Encounter Melly Giraldo [id number] Elyse Aparicio [id number] [facility] [id number] 2020-09-04 2020-09-04 Office Mark [facility] [id number] 16:01:54 17:11:05 Visit Anatoly Hawkins [id number] [place] [id number] Professio [phone] [facility] 2018-06-27 2018-06-27 Outpatient Michael Rodriguezt [id number] [facility] 11:57:00 11:57:00 [facility] 2018-06-15 2018-06-15 [facility]patient [facility] Rodriguezt [id number] [facility] 16:24:00 16:24:00 [employer] [facility] Clin[facility] 2018-06-13 2018-06-13 [facility] [id number] [facility] 13:30:00 13:30:00 [employer] [facility] Outpati ent Clinics 2017-12-12 2017-12-12 [facility] [id number] [facility] [address] 13:22:00 13:22:00 [employer] [facility] Clin[facility] 2017-11-20 2017-11-20 [facility] [id number] [facility] 10:30:00 10:30:00 [employer] [facility] Clin[facility] 2017-11-02 2017-11-02 [facility] [id number] [facility] 15:15:00 15:15:00 [employer] [facility] Clin[facility] Results This patient has no known results.
[2020-09-28] MEDS ORDERED: D50W 50 ML IV ONE (14:05)
[2020-09-28 14:16] LABS: Absolute Lymphocytes (CBC) 1.6 K/uL (0.7-4.9); Basophils % 1.1 % (0-1.3); Hematocrit 42.3 % (36.0-45.0); MPV 8.3 fL (7.6-11.3); RBC Red Blood Cell Count 4.59 M/uL (3.86-4.86)
[2020-09-28 14:23] LABS: Protime INR 0.88
--- NOTE | 2020-09-28 14:42 | RAD REPORT ---
EXAM DESCRIPTION: CT - Head Brain Wo Cont - 09/28/2020 2:24 pm CLINICAL HISTORY: MENTAL STATUS CHANGE COMPARISON: Head Brain Wo Cont dated 07/16/2020 TECHNIQUE: Axial 5 mm thick images of the head were obtained without IV contrast. All CT scans are performed using dose optimization technique as appropriate and may include automated exposure control or mA/KV adjustment according to patient size. FINDINGS: No intracranial hemorrhage, mass, edema or shift of mid-line structures. No acute infarcti on changes seen. No abnormal extra-axial fluid collections. Ventricles are normal. Mastoid air cells and visualized portions of the paranasal sinuses are clear. No acute bony findings. IMPRESSION: Negative non-contrast CT head examination for acute or significant finding. No significant change July 16 imaging
--- NOTE | 2020-09-28 15:11 | RAD REPORT ---
EXAM DESCRIPTION: RAD - Chest Single View - 09/28/2020 2:52 pm CLINICAL HISTORY: AMS, unresponsive, hypoglycemia COMPARISON: June 2020 TECHNIQUE: AP portable chest image was obtained 09/28/2020 2:52 pm . FINDINGS: No diffuse pulmonary edema or focal lung parenchymal abnormality. Interstitial pattern is not substantially different from comparison. Cardiac silhouette is enlarged slightly from comparison. Central vasculature within normal limits. Sternotomy wires are place. No measurable pleural effusion and no pneumothorax. No acute bony abnormality seen. No acute aortic findings suspected. IMPRESSION: No focal mass or consolidation. Mild cardiomegaly is present. A minimal failure or volume overload is possible.
[2020-09-28 16:12] LABS: ALT/SGPT 20 U/L (12-78); AST/SGOT 15 U/L (15-37); Albumin 2.8 g/dL (3.4-5.0); Alkaline Phosphatase 75 U/L (45-117); BUN Blood Urea Nitrogen 12 mg/dL (7-18); Bicarbonate 25 mmol/L (21-32); Bilirubin Direct < 0.1 mg/dL (0-0.2); Bilirubin Total 0.4 mg/dL (0.2-1.0); Glucose Level 162 mg/dL (74-106); Magnesium 1.7 mg/dL (1.8-2.4); NT PRO-BNP 832 pg/mL (<125); Potassium 4.2 mmol/L (3.5-5.1); Protein, Total 6.9 g/dL (6.4-8.2); Sodium Level 144 mmol/L (136-145); Troponin (Emerg Dept Use Only) < 0.02 ng/mL (0.0-0.045)
--- NOTE | 2020-09-28 17:35 | EDPHYS ---
Physician Documentation [facility] Name: Karen Shah Age: 50 yrs Sex: Female : 1970 Arrival Date: 09/28/2020 Time: 13:19 Bed 15 Private MD: ED Physician Cory Anderson HPI: 09/28 13:39 This 50 yrs old Female presents to ER via EMS with complaints of Low Blood pm1 Sugar, Altered Mental Status. 13:39 The patient or guardian reports hypoglycemia, that was potentially precipitated by not pm1 eating while taking her insulin. She also does not check her blood sugars regularly, Treatment prior to arrival includes: EMS administered glucagon, checked blood sugar on arrival, which was 48. Onset: The symptoms/episode began/occurred just prior to arrival. Associated signs and symptoms: Pertinent negatives: None. Current symptoms: In the emergency department the patient's symptoms have improved. It is unknown whether or not the patient has recently seen a physician. 13:39 Patient only takes 70/30 for her diabetes. Last dose last night. pm1 Historical: - Allergies: 13:57 Adhesives; tw2 13:57 Toradol; tw2 13:57 tramadol; tw2 13:57 Demerol; tw2 - Home Meds: 13:57 Nitroglycerin Topical [Active]; gabapentin Oral [Active]; Isosorbide Mononitrate Oral tw2 [Active]; Metformin Oral [Active]; Furosemide Oral [Active]; duloxetine Oral [Active]; escitalopram oxalate Oral [Active]; clopidogrel Oral [Active]; atorvastatin Oral [Active]; - PMHx: 13:57 CVA; Right AKA; Myocardial infarction; Hypertension; Seizures; Diabetes - IDDM; CAD; tw2 High Cholesterol; - Immunization history:: Adult Immunizations. - Social history:: Smoking status: . ROS: 13:39 Constitutional: Negative for fever, chills, and weight loss, Cardiovascular: Negative pm1 for chest pain, palpitations, and edema, Respiratory: Negative for shortness of breath, cough, wheezing, and pleuritic chest pain, Abdomen/GI: Negative for abdominal pain, nausea, vomiting, diarrhea, and constipation, Back: Negative for injury and pain, MS/Extremity: Negative for injury and deformity, Skin: Negative for injury, rash, and discoloration, Neuro: Negative for headache, weakness, numbness, tingling, and seizure. Exam: 13:39 Constitutional: This is a well developed, well nourished patient who is awake, alert, pm1 and in no acute distress. Head/Face: Normocephalic, atraumatic. 13:39 Back: No spinal tenderness. No costovertebral tenderness. Full range of motion. Skin: Warm, dry with normal turgor. Normal color with no rashes, no lesions, and no evidence of cellulitis. 13:39 Cardiovascular: Rate: normal, Rhythm: regular, Pulses: no pulse deficits are appreciated. 13:39 Respiratory: Exam negative for acute changes, respiratory distress, shortness of breath, Breath sounds: are clear throughout. 13:39 Abdomen/GI: Inspection: abdomen appears normal, Palpation: abdomen is soft and non-tender, in all quadrants. 13:39 Musculoskeletal/extremity: Extremities: grossly normal except: noted in the Right BKA: ROM: no acute changes. 13:39 Neuro: Exam negative for acute changes, Orientation: is normal, Mentation: is normal, Motor: is normal, moves all fours. Vital Signs: 13:19 BP 162 / 85; Pulse 79; Resp 17; Pulse Ox 99% on R/A; tw2 13:57 Temp 97.9(TE); tw2 14:00 BP 162 / 85; Pulse 79; Resp 17; Pulse Ox 97% on R/A; tw2 15:00 BP 120 / 74; Pulse 83; Resp 17; Pulse Ox 99% on R/A; tw2 16:19 BP 119 / 67; Pulse 83; Resp 17; Pulse Ox 99% on R/A; tw2 MDM: 13:26 Patient medically screened. pm1 16:37 Data reviewed: vital signs. Data interpreted: Pulse oximetry: on room air is 99 %. pm1 Interpretation: normal. 16:37 Counseling: I had a detailed discussion with the patient and/or guardian regarding: the pm1 historical points, exam findings, and any diagnostic results supporting the discharge/admit diagnosis, lab results, the need for outpatient follow up, to return to the emergency department if symptoms worsen or persist or if there are any questions or concerns that arise at home. 09/28 13:29 Order name: Basic Metabolic Panel pm1 09/28 13:29 Order name: CBC with Diff pm09/28 13:29 Order name: LFT's pm1 09/28 13:29 Order name: Magnesium; Complete Time: 16:21 pm1 09/28 13:29 Order name: NT PRO-BNP; Complete Time: 16:21 pm1 09/28 13:29 Order name: PT-INR; Complete Time: 14:51 pm1 09/28 13:29 Order name: Troponin (emerg Dept Use Only); Complete Time: 16:21 pm1 09/28 13:29 Order name: XRAY Chest (1 view); Complete Time: 15:13 pm1 09/28 13:29 Order name: CT Head Brain wo Cont; Complete Time: 14:51 pm1 09/28 13:30 Order name: Basic Metabolic Panel; Complete Time: 16:21 EDMS 09/28 13:30 Order name: CBC with Automated Diff; Complete Time: 14:34 EDMS 09/28 13:30 Order name: Liver (Hepatic) Function; Complete Time: 16:21 EDMS 09/28 13:48 Order name: Glucose, Ancillary Testing EDMS 09/28 16:22 Order name: Glucose, Ancillary Testing; Complete Time: 16:28 EDMS 09/28 13:29 Order name: EKG; Complete Time: 13:30 pm1 09/28 13:29 Order name: Cardiac monitoring; Complete Time: 13:31 pm1 09/28 13:29 Order name: EKG - Nurse/Tech; Complete Time: 13:32 pm1 09/28 13:29 Order name: IV Saline Lock; Complete Time: 14:20 pm1 09/28 13:29 Order name: Labs collected and sent; Complete Time: 14:20 pm1 09/28 13:29 Order name: O2 Per Protocol; Complete Time: 13:52 pm1 09/28 13:29 Order name: O2 Sat Monitoring; Complete Time: 13:52 pm1 09/28 13:57 Order name: Glucose Level; Complete Time: 13:57 tw2 09/28 14:21 Order name: Labs - recollect needed: recollect green top; Complete Time: 17:43 bd 09/28 14:54 Order name: Glucose Level; Complete Time: 16:11 pm1 09/28 16:37 Order name: Diet Regular; Complete Time: 16:38 pm1 Administered Medications: 14:18 Drug: D50W 50 ml Route: IVP; Site: left antecubital; tw2 Point of Care Testing: Blood Glucose: 16:11 Blood Glucose: 149 mg/dL; tw2 Ranges: Critical Glucose Levels:Adult <50 mg/dl or >400 mg/dl <40 mg/dl or >180 mg/dl Disposition: 09/28/20 17:34 Discharged to Home. Impression: Hypoglycemia, unspecified. - Condition is Stable. - Discharge Instructions: Hypoglycemia, Blood Glucose Monitoring, Adult. - Medication Reconciliation Form, Thank You Letter, Antibiotic Education, Prescription Opioid Use form. - Follow up: Emergency Department; When: As needed; Reason: Worsening of condition. Follow up: Private Physician; When: 2 - 3 days; Reason: Recheck today's complaints, Continuance of care, Re-evaluation by your physician. - Problem is new. - Symptoms have improved. Addendum: 10/01/2020 06:16 Co-signature as Attending Physician, Cory Anderson MD. m a2 Signatures: Dispatcher [employer] EDMS Anjali Cespedes Patrick, MANAGER RESORT MANAGER RESORT pm1 Jannet Duff RN RN tw2 Cory Anderson MD MD ma2 Corrections: (The following items were deleted from the chart) 09/28 19:06 17:34 09/28/2020 17:34 Discharged to Home. Impression: Hypoglycemia, unspecified. tw2 Condition is Stable. Forms are Medication Reconciliation Form, Thank You Letter, Antibiotic Education, Prescription Opioid Use. Follow up: Emergency Department; When: As needed; Reason: Worsening of condition. Follow up: Private Physician; When: 2 - 3 days; Reason: Recheck today's complaints, Continuance of care, Re-evaluation by your physician. Problem is new. Symptoms have improved. pm1
--- NOTE | 2020-09-28 17:35 | ER ---
Nurse's Notes [facility] Name: Karen Shah Age: 50 yrs Sex: Female : 1970 Arrival Date: 09/28/2020 Time: 13:19 Bed 15 Private MD: Diagnosis: Hypoglycemia, unspecified Presentation: 09/28 13:19 Note EMS reports BGL 48 upon arrival, 2 attempts and NO iv access. tw2 13:19 Acuity: ARIEL 2 tw2 13:19 Chief complaint: EMS states: call was for unresponsive, we got a low blood sugar tw2 reading, had 2 unsuccessful attempts to get iv, so we gave glucose IM, but when we arrived we checked her BGL and it was 48 mg/dL, she is responding a little more now and tearful, the son said he found her in the bed and her eyes were fixed and she was just "zoning out". Coronavirus screen: At this time, the client does not indicate any symptoms associated with coronavirus-19. Ebola Screen: Patient denies travel to an Ebola-affected area in the 21 days before illness onset. Initial Sepsis Screen: Does the patient meet any 2 criteria? No. Patient's initial sepsis screen is negative. Does the patient have a suspected source of infection? No. Patient's initial sepsis screen is negative. Risk Assessment: Do you want to hurt yourself or someone else? Patient reports no desire to harm self or others. Note Quique Bashir NP at bedside at this time. Onset of symptoms was September 28, 2020. 13:19 Method Of Arrival: EMS: [facility] tw2 Historical: - Allergies: 13:57 Adhesives; tw2 13:57 Toradol; tw2 13:57 tramadol; tw2 13:57 Demerol; tw2 - Home Meds: 13:57 Nitroglycerin Topical [Active]; gabapentin Oral [Active]; Isosorbide Mononitrate Oral tw2 [Active]; Metformin Oral [Active]; Furosemide Oral [Active]; duloxetine Oral [Active]; escitalopram oxalate Oral [Active]; clopidogrel Oral [Active]; atorvastatin Oral [Active]; - PMHx: 13:57 CVA; Right AKA; Myocardial infarction; Hypertension; Seizures; Diabetes - IDDM; CAD; tw2 High Cholesterol; - Immunization history:: Adult Immunizations. - Social history:: Smoking status: . Screenin:03 Abuse screen: Denies threats or abuse. Nutritional screening: No deficits noted. tw2 Tuberculosis screening: No symptoms or risk factors identified. Fall Risk Secondary diagnosis (15 points) impaired mobility, Ambulatory Aid- Crutches/Cane/Walker (15 pts). Assessment: 14:02 Reassessment: provider JER Lei at bedside at this time for IV attempt and bloodwork.tw2 Vital Signs: 13:19 BP 162 / 85; Pulse 79; Resp 17; Pulse Ox 99% on R/A; tw2 13:57 Temp 97.9(TE); tw2 14:00 BP 162 / 85; Pulse 79; Resp 17; Pulse Ox 97% on R/A; tw2 15:00 BP 120 / 74; Pulse 83; Resp 17; Pulse Ox 99% on R/A; tw2 16:19 BP 119 / 67; Pulse 83; Resp 17; Pulse Ox 99% on R/A; tw2 ED Course: 13:19 Patient arrived in ED. tw2 13:20 Bed in low position. Call light in reach. Side rails up X2. Adult w/ patient. Cardiac tw2 monitor on. Pulse ox on. NIBP on. 13:23 Quique Rivera NP is PHCP. pm1 13:23 Cory Anderson MD is Attending Physician. pm1 13:29 Triage completed. tw2 13:42 Note: PT IN BATHROOM WHEN ATTEMPTED CXR. mh1 13:52 Jannet Duff, RN is Primary Nurse. tw2 13:55 Arm band placed on. tw2 14:01 Missed attempt(s): 24 gauge in left forearm. per CHIDI Hawk charge. Bleeding controlled, tw2 band aid applied, catheter tip intact. Missed attempt(s): 22 gauge in right antecubital area. Bleeding controlled, band aid applied, catheter tip intact. Missed attempt(s): 22 gauge in right forearm. Missed attempt(s): 24 gauge in left hand. Bleeding controlled, band aid applied, catheter tip intact. Missed attempt(s): 22 gauge in left forearm. Bleeding controlled, band aid applied, catheter tip intact. 14:10 Missed attempt(s): 22 gauge in left forearm. by Sree Dominguez Bleeding controlled, band tw2 aid applied, catheter tip intact. 14:21 Inserted saline lock: 20 gauge in left antecubital area, using aseptic technique. tw2 ,using aseptic technique. by CHIDI Hawk by US guided technique. 14:23 CT Head Brain wo Cont In Process Unspecified. EDMS 14:51 XRAY Chest (1 view) In Process Unspecified. EDMS 17:43 Awaiting transportation, Awaiting: and food tray PRIOR to discharge. tw2 19:06 No provider procedures requiring assistance completed. IV discontinued, intact, vg1 bleeding controlled, No redness/swelling at site. Pressure dressing applied. Administered Medications: 14:18 Drug: D50W 50 ml Route: IVP; Site: left antecubital; tw2 Point of Care Testing: Blood Glucose: 16:11 Blood Glucose: 149 mg/dL; tw2 Ranges: Outcome: 17:34 Discharge ordered by . pm1 19:06 Patient left the ED. tw2 Signatures: Dispatcher [employer] EDMS Alondra Nava 1 Quique Rivera, JER SAND ANALYST pm1 Jannet Duff RN RN tw2 Kamille Eli RN RN vg1
[2020-09-28 19:27] VITALS: TEMP 97.9
[2020-09-28 19:30] VITALS: O2SAT 99
[2020-09-28 19:31] VITALS: BP 119/67
--- NOTE | 2020-09-29 11:20 | EKG ---
Test Date: 2020-09-28 Test Time: 13:28:52 Organizational Development Specialist: MARY MEASUREMENT RESULTS: Intervals: Rate: 77 DC: 152 QRSD: 78 QT: 464 QTc: 525 [place]: P: 64 DC: 152 QRS: 34 T: 32 INTERPRETIVE STATEMENTS: Normal sinus rhythm Anterior infarct, age undetermined Abnormal ECG Compared to ECG 07/16/2020 16:17:02 Sinus tachycardia no longer present Myocardial infarct finding still present Electronically Signed On 09-29-20 11:17:16 CDT by Griffin Mejia
== END 2020-09-28 19:06 | disposition home or self-care (01) ==
LOC: ER 13:14
DX: E11.649 Type 2 diabetes mellitus with hypoglycemia without coma (principal); I10 Essential (primary) hypertension; E78.00 Pure hypercholesterolemia, unspecified; I25.2 Old myocardial infarction; Z89.611 Acquired absence of right leg above knee; Z86.73 Personal history of transient ischemic attack (TIA), and cerebral infarction without residual deficits; Z88.5 Allergy status to narcotic agent; Z88.8 Allergy status to other drugs, medicaments and biological substances
CPT/HCPCS: 36415; 70450; 71045; 80048; 80076; 82947; 83735; 83880; 84484; 85025; 85610; 93005; 96374; 99284

== ENCOUNTER 2020-10-03 17:47 | Emergency (ER) | payer OTHER ==
--- OUTSIDE RECORDS SUMMARY | 2020-10-03 17:51 | XMS REPORT | Continuity of Care Document ---
:1970 Author Organization [facility] t Address [address] [place] [address] Care Team Providers Name Role Phone Lucas BROWN, A Primary Care Physician Lucas BROWN, A Attending Clinician Payers Payer Name Policy Type Policy Effective Date Expiration Source Number Date MEDICAREMEDICARE PART [id number] 2017 Un iversity of A & 00:00:00 [facility] [id number] [facility] -[id number] 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 5-06 it y of on on 00:00: [address] Poor Poor Disease Active Univers appetite appetite 5-06 ity of 00:00: [place] [id number] Medical Branch Hypoalbumi Hypoalbumi Disease Active U nivers nemia nemia 5-06 ity of 00:00: [address] Hyperglyce Hyperglyce Disease Active 2020- U nivers filomena filomena 4-11 ity of 00:00: [place] 00 Medical [place] Complicate Complicate Disease Active 2020-0 U nivers d UTI d UTI 4-10 ity of (urinary (urinary 00:00: [place] tract tract 00 Medical infection) infection) Br anch 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 00:00: [place] mellitus mellitus 00 Medica l with with Branch hyperglyce hyperglyce filomena filomena Chronic Chronic Disease Active 2019-05 Univers hip pain, hip pain, 2-16 ity of left left 00:00: [place] 00 Medical Branch Osteoarthr Osteoarthr Disease Active 2019-05 U nivers itis of itis of 2-16 ity of left hip, left hip, 00:00: [place] unspecifie unspecifie 00 Me dical d d Branch osteoarthr osteoarthr itis type itis type Obesity Obesity Disease Active Univers (BMI (BMI 3-16 ity of 30-39.9) 30-39.9) 00:00: [place] 00 Medical Branch Chest pain Chest pain Disease Active U nivers 3-16 ity of 00:00: [place] 00 Medical Branch Coronary Coronary Disease Active Unive rs artery artery 3-09 ity of disease disease 00:00: [place] involving involving 00 [facility] [place] coronary coronary artery of artery of [place] heart heart without without angina angina pectoris pectoris PAD PAD Disease Active Univers (periphera (periphera 3-09 it y of l artery l artery 00:00: [place] disease) disease) 00 Medica l Branch Chronic Chronic Disease Active Univers heart heart 3-09 ity of failure failure 00:00: [place] with with 00 Medical preserved preserved Bran ch ejection ejection fraction fraction GARY GARY Disease Active Overview: Univer s (stress (stress 02-02 Added ity of urinary urinary 00:00: automatic [place] incontinen incontinen 00 ally from Medical ce, ce, request Branch female) female) for surgery [id number] GERD GERD Disease Active Univers (gastroeso (gastroeso it y of phageal phageal [place] reflux reflux Medical disease) disease) Branch DM DM Disease Active Univers (diabetes (diabetes ity of mellitus) mellitus) [place] Depression Depression Disease Active U nivers ity of [place] Medical Branch CVA CVA Disease Active Univers (cerebral (cerebral ity of vascular vascular [place] accident) accident) [facility] Branch CHF CHF Disease Active Univers (congestiv (congestiv it y of e heart e heart [place] failure) failure) [facility] Anxiety Anxiety Disease Active Univers ity of [facility] Angina Angina Disease Active Univers pectoris pectoris ity of [facility] H/O right H/O right Disease Active Uni vers coronary coronary ity of artery artery [place] stent stent Medical placement placement Bran ch High High Disease Active Univers cholestero cholestero it y of l l [facility] HTN HTN Disease Active Univers (hypertens (hypertens it y of ion) ion) [facility] Hx of CABG Hx of CABG Disease Active U nivers ity of [facility] Migraines Migraines Disease Active Uni vers ity of [facility] Seizures Seizures Disease Active Unive rs ity of [facility] Unilateral Unilateral Disease Active U nivers AKA, right AKA, right it y of [facility] History of History of Problem Active C [...] with l hyperglyce hyperglyce Ou tpati filomena [facility] ent Clinics Type 2 Type [address] [facility] diabetes diabetes [facility] - mellitus mellitus Memori a with other with other l specified specified Outp ati complicati complicati en t on on Clinics Hx of CABG Hx of CABG Problem Active [facility] Chronic Chronic Problem Active [facility] pain pain [facility] disorder disorder [facility]ori a [facility] [employer]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 [facility] 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 current [facility] - use of use of Memoria insulin insulin l [facility] Neuropathy Neuropathy Problem Active [facility] Depression Depression Problem Active [facility] with with [facility] - anxiety anxiety Memoria [facility] HTN HTN Problem Active [facility] (hypertens (hypertens Charley kes - ion), ion), Memoria benign benign l [facility] Seizures Seizures Problem [facility] Coronary Coronary Problem Active [facility] t artery artery [facility] - disease disease Memoria involving involving l coronary coronary Outpat i bypass bypass ent graft of graft of Clinic s [place] heart with heart with angina angina pectoris pectoris Dependent Dependent Problem Active [facility] on on Lukes - wheelchair wheelchair Me moria l [facility] ent Clinics History of History of Problem Active [facility] right right [facility] - above knee above knee Me moria amputation amputation l [facility] ent Clinics Allergies, Adverse Reactions, Alerts Allergy Allergy Status Severity Reaction(s) Onset Inactive Treating Comm ents Source Name Type Date Date Clinician Ketorola Propensi Active Hives Univer s c ty to 7-20 ity of Trometha adverse 00:00: [place] mine reaction 00 Medical s Branch Tramadol Propensi Active Hives Univer s ty to 7-20 ity of adverse 00:00: [place] reaction 00 Medical s Branch Toradol Adverse Active Info Not [facility] Reaction Available [facility] Memoria [facility] tramadol Adverse Active Info Not [facility] Reaction Available [facility] Social History Social Habit Start Date Stop Date Quantity Comments Source Exposure to Not sure [facility] SARS-CoV-2 (event) [facility] History of tobacco Cigarette Smoker University of use [facility] Cigarettes smoked 2020-10-01 2020-10-01 Univers ity of current (pack per 00:00:00 00:00:00 ) - Reported [place] Tobacco use and 2020-10-01 2020-10-01 Never used Universit y of exposure 00:00:00 00:00:00 [facility] Alcohol intake 2020-10-01 2020-10-01 Ex-drinker University 00:00:00 00:00:00 (finding) [facility] Tobacco Comment 2020-04-03 2020-04-03 smoking since 12 Uni versity of 00:00:00 00:00:00 years old [facility] Alcohol Comment 2019-10-11 2019-10-11 rare Universit y of 00:00:00 00:00:00 [facility] Sex [birth year] At [birth year] Universit y of 00:00:00 00:00:00 [facility] Smoking Status Start Date Stop Date Source Current every day smoker 2020-10-01 00:00:00 Uni versity of [facility] Medications Ordered Filled Start Stop Current Ordering Indication Dosage Frequency Signature Comments Components Source Medication Medication Date Date Medication? Clinician (SIG) Name Name glipiZIDE Yes Type 2 5mg Take 0.5 Un cali 10 mg 5-06 diabetes tablets by ity of tablet 00:00: mellitus mouth 2 [place] with (two) Medical hypoglycemi times Branch a without daily coma, with before long-term breakfast current use and of insulin dinner. mirtazapine Yes History of 15mg Take 1 Univers 15 mg 5-06 depression tablet by ity of tablet 00:00: mouth at [place] 00 bedtime. Medical Branch atorvastati Yes Coronary 80mg Take 1 Univers n 80 mg 5-06 artery tablet by ity o f tablet 00:00: disease mouth [place] 00 involving bedtime. Medica l [place] Branch coronary artery of [place] heart without angina pectoris glipiZIDE Yes Type 2 5mg Take 0.5 Un cali 10 mg 5-06 diabetes tablets by ity of tablet 00:00: mellitus mouth 2 s 00 with (two) Medical hypoglycemi times Branch a without daily coma, with before long-term breakfast current use and of insulin dinner. mirtazapine Yes History of 15mg Take 1 Univers 15 mg 5-06 depression tablet by ity of tablet 00:00: mouth at [place] 00 bedtime. Medical Branch atorvastati Yes Coronary 80mg Take 1 Univers n 80 mg 5-06 artery tablet by ity o f tablet 00:00: disease mouth at [place] 00 involving bedtime. Medica l [place] Branch coronary artery of [place] heart without angina pectoris ezetimibe 2020- Yes Uncontrolle 10mg Take 1 Univers 10 mg - 05-14 d type 2 tablet by ity of tablet 00:00: 04:59 diabetes mouth [place] 00 :00 mellitus daily for Medica l with 30 days. Branch hyperglycem ia insulin NPH 2020- Yes Uncontrolle 60U inject 60 Univers and regular - 05-14 d type 2 Units it y of human 70-30 00:00: 04:59 diabetes under the [place] (NOVOLIN 00 :00 mellitus skin 2 Medic al 70/30 U-100 with (two) Branch INSULIN) hyperglycem times 100 unit/mL ia daily (70-30) before injection breakfast and dinner for 30 days. ezetimibe 2020- Yes Uncontrolle 10mg Take 1 Univers 10 mg -08 10-14 d type 2 tablet by ity of tablet 00:00: 04:59 diabetes mouth [place] 00 :00 mellitus daily for Medica l with 30 days. Branch hyperglycem ia insulin NPH 2020- Yes Uncontrolle 60U inject 60 Univers and regular - 05-14 d type 2 Units it y of human 70-30 00:00: 04:59 diabetes under the [place] (NOVOLIN 00 :00 mellitus skin 2 Medic al 70/30 U-100 with (two) Branch INSULIN) hyperglycem times 100 unit/mL ia daily (70-30) before injection breakfast and dinner for 30 days. aspirin 81 Yes 81mg Take 1 Unive rs mg chewable 4-12 tablet by ity of tablet 23:21: mouth [place] 25 daily. Medical Branch aspirin 81 Yes 81mg Take 1 Unive rs mg chewable 4-12 tablet by ity of tablet 23:21: mouth [place] 25 daily. Medical Branch metoprolol 2020- Yes Coronary 50mg Take 0.5 Univers succinate 09-07-13 artery tablets by i ty of XL 100 mg 00:00: 04:59 disease mouth [place] 24 hr 00 :00 involving daily for Medi blanquita tablet [place] 30 days. Branch coronary artery of [place] heart without angina pectoris SITagliptin 2020- Yes Uncontrolle 100mg Take 1 Univers 100 mg 09-07-13 d type 2 tablet by ity of tablet 00:00: 04:59 diabetes mouth with [place] 00 :00 mellitus evening Medical with meal for Branch hyperglycem 30 days. ia metoprolol 2020- Yes Coronary 50mg Take 0.5 Univers succinate 09-07-13 artery tablets by i ty of XL 100 mg 00:00: 04:59 disease mouth [place] 24 hr 00 :00 involving daily for Medi blanquita tablet [place] 30 days. Branch coronary artery of [place] heart without angina pectoris SITagliptin 2020- Yes Uncontrolle 100mg Take 1 Univers 100 mg 09-07-13 d type 2 tablet by ity of tablet 00:00: 04:59 diabetes mouth with [place] 00 :00 mellitus evening Medical with meal for Branch hyperglycem 30 days. ia insulin NPH 2020- No Uncontrolle 90U inject 90 Univers and regular 09-07 05-06 d type 2 Units it y of human 70-30 00:00: 00:00 diabetes under the [place] (NOVOLIN 00 :00 mellitus skin 2 Medic al 70/30 U-100 with (two) Branch INSULIN) hyperglycem times 100 unit/mL ia daily (70-30) before injection breakfast and dinner for 30 days. glipiZIDE 2020- No Uncontrolle 10mg Take 1 Univers 10 mg 4 05-06 d type 2 tablet by ity of tablet 00:00: 00:00 diabetes mouth 2 [place] 00 :00 mellitus (two) Medical with times Branch hyperglycem daily ia before breakfast and dinner for 30 days. insulin NPH 2020- No Uncontrolle 90U inject 90 Univers and regular 4- 05-06 d type 2 Units it y of human 70-30 00:00: 00:00 diabetes under the [place] (NOVOLIN 00 :00 mellitus skin 2 Medic al 70/30 U-100 with (two) Branch INSULIN) hyperglycem times 100 unit/mL ia daily (70-30) before injection breakfast and dinner for 30 days. glipiZIDE 2020- No Uncontrolle 10mg Take 1 Univers 10 mg 09-07-06 d type 2 tablet by ity of tablet 00:00: 00:00 diabetes mouth 2 [place] 00 :00 mellitus (two) Medical with times Branch hyperglycem daily ia before breakfast and dinner for 30 days. METFORMIN Yes TAKE 2 Univer s 500 mg 3-09 TABLETS BY ity of tablet 00:00: MOUTH TWICE Medical DAILY WITH Branch MEALS METFORMIN Yes TAKE 2 Univer s 500 mg 3-09 TABLETS BY ity of tablet 00:00: MOUTH TWICE Medical DAILY WITH Branch MEALS pantoprazol Yes Gastroesoph 40mg Take 1 Univers e 40 mg EC 1-11 ageal tablet by ity of tablet 00:00: reflux mouth 00 disease daily. Medical Branch pantoprazol Yes Gastroesoph 40mg Take 1 Univers e 40 mg EC 1-11 ageal tablet by ity of tablet 00:00: reflux mouth 00 disease daily. Medical Branch gabapentin 2019-05 Yes Neuropathy 800mg Take 1 Univers 800 mg 2-22 tablet by ity of tablet 00:00: mouth 3 00 (three) Medical times Branch daily. gabapentin 2019-05 Yes Neuropathy 800mg Take 1 Univers 800 mg 2-22 tablet by ity of tablet 00:00: mouth 3 00 (three) Medical times Branch daily. clopidogreL Yes H/O right 75mg Take 1 Univers (PLAVIX) 75 3-20 coronary tablet by ity of mg tablet 00:00: artery mouth 00 stent daily. Medical placement Branch clopidogreL Yes H/O right 75mg Take 1 Univers (PLAVIX) 75 3-20 coronary tablet by ity of mg tablet 00:00: artery mouth 00 stent daily. Medical placement Branch atorvastati 2020- No Coronary 80mg Take 1 Univers n 80 mg 3-20 05-06 artery tablet by ity of tablet 00:00: 00:00 disease mouth at [place] 00 :00 involving bedtime. Medica l [place] Branch coronary artery of [place] heart without angina pectoris atorvastati 2020- No Coronary 80mg Take 1 Univers n 80 mg 3-20 05-06 artery tablet by ity of tablet 00:00: 00:00 disease mouth at [place] 00 :00 involving bedtime. Medica l [place] Branch coronary artery of [place] heart without angina pectoris nitroglycer 2018-05 Yes H/O right 1 tab SL Univers in 0.4 mg 0-29 coronary q5min up it y of sublingual 00:00: artery to 3 doses [place] tablet 00 stent PRN chest Medical placement pain, then Bran ch activate 911. nitroglycer 2018-05 Yes H/O right 1 tab SL Univers in 0.4 mg 0-29 coronary q5min up it y of sublingual 00:00: artery to 3 doses [place] tablet 00 stent PRN chest Medical placement pain, then Bran ch activate 911. Atorvastati Atorvastati Yes Dada [address] [facility] n Calcium n Calcium [facility] Lexapro Lexapro Yes Dada [address] [facility] [facility] Metoprolol Metoprolol Yes Dada [address] Tartrate Tartrate Horan with food [facility] Ranexa Ranexa Yes Dada [facility] Insulin Insulin Yes Dada [address] Aspart Prot Aspart Prot Horan BID [facility] - & Aspart & Aspart [facility] Aspirin Aspirin Yes Dada [address] [facility] Gabapentin Gabapentin Yes Dada [address] [facility] Furosemide Furosemide Yes Dada [address] [facility] Duloxetine Duloxetine Yes Dada [address] [facility] HCl HCl [facility] Xanax Xanax Yes Dada [address] [facility] Clopidogrel Clopidogrel Yes Dada [address] [facility] Bisulfate Bisulfate [facility] Metformin Metformin Yes Dada [address] HCl HCl [facility] with meals [facility] Pantoprazol Pantoprazol Yes Dada [address] [facility] [facility] e Sodium e Sodium [facility] Klor-Con Klor-Con Yes Dada [address] M10 M10 [facility] with food [facility] Duloxetine Duloxetine Yes Dada [address] HCl HCl [facility] Levetiracet Levetiracet Yes Dada [address] [facility] am am [facility] [place] Yes Dada [address] [facility] [facility]an as needed [facility] Lexapro Lexapro Yes Dada [address] [facility] Atorvastati Atorvastati Yes Dada [address] [facility] [facility] n Calcium n Calcium [facility] Clopidogrel Clopidogrel Yes Dada [address] [facility] Bisulfate Bisulfate [facility] Furosemide Furosemide Yes Dada [address] [facility] Vital Signs Vital Name Observation Time Observation Value Comments Source Systolic blood 2020-10-01 20:20:00 120 mm[Hg] [facility] sity of [place] pressure Medical Branch Diastolic blood 2020-10-01 20:20:00 80 mm[Hg] Unive rsity of [place] pressure Medical Branch Heart rate 2020-10-01 20:20:00 60 /min [facility] ty [facility] [place] [facility] Systolic blood 2020-10-01 20:20:00 120 mm[Hg] Univer sity of [place] pressure Medical Branch Diastolic blood 2020-10-01 20:20:00 80 mm[Hg] Unive rsity of [place] pressure Medical Branch Heart rate 2020-10-01 20:20:00 60 /min [facility]i ty [facility] [place] [facility] Procedures This patient has no known procedures. Plan of Care Planned Activity Planned Date Details Comments Source Future Scheduled 2022 Screening for [facility] [place] Test 00:00:00 malignant neoplasm of Medica l Branch colon (procedure) [code = 020663072] Future Scheduled 2022 Screening for [facility] [place] Test 00:00:00 malignant neoplasm of Medica l Branch colon (procedure) [code = 664435942] Future Scheduled 2021-09-07 Creatinine [facility] [place] Test 00:00:00 measurement Medical Branch (procedure) [code = 14205309] Future Scheduled 2021-09-07 Creatinine [facility] [place] Test 00:00:00 measurement Medical Branch (procedure) [code = 65360577] Future Scheduled 2021-09-05 Calculated low [facility] y [facility] [place] Test 00:00:00 density lipoprotein Medical Branch cholesterol level (procedure) [code = 039812110] Future Scheduled 2021-09-05 Calculated low Universit y [facility] [place] Test 00:00:00 density lipoprotein Medical Branch cholesterol level (procedure) [code = 789606463] Future Scheduled 2021-05-08 Depression screening Uni versity of [place] Test 00:00:00 (procedure) [code = Medical Branch [id number]] Future Scheduled 2021-05-08 Depression screening Uni versity of [place] Test 00:00:00 (procedure) [code = Medical Branch [id number]] Future Scheduled 2021-03-07 Hemoglobin A1c [facility] [place] Test 00:00:00 measurement Medical Branch (procedure) [code = 68732192] Future Scheduled 2021-03-07 Hemoglobin A1c [facility] [place] Test 00:00:00 measurement Medical Branch (procedure) [code = 61733055] Future Scheduled 2021-01-27 [facility] ([facility] Ended) [code Medical Branch = INFLUENZA VACCINE (Season Ended)] Future Scheduled 2021-01-27 INFLUENZA VACCINE Univer sity [facility] Test 00:00:00 (Season Ended) [code Medical Branch = INFLUENZA VACCINE (Season Ended)] Future Scheduled 2020-10-31 Screening for [facility] Test 00:00:00 malignant neoplasm of Medica l Branch breast (procedure) [code = 017030040] Future Scheduled 2020-10-31 Screening for [facility] Test 00:00:00 malignant neoplasm of Medica l Branch breast (procedure) [code = 882248261] Future Scheduled 2020-09-25 Screening for [facility] Test 00:00:00 malignant neoplasm of Medica l Branch cervix (procedure) [code = 872762661] Future Scheduled 2020-09-25 Screening for [facility] Test 00:00:00 malignant neoplasm of Medica l Branch cervix (procedure) [code = 819906178] Future Scheduled 2020-05-10 Diabetic foot [facility] Test 00:00:00 examination Medical Branch (regime/therapy) [code = 747050517] Future Scheduled 2020-05-10 Diabetic foot [facility] Test 00:00:00 examination Medical Branch (regime/therapy) [code = 288333357] Future Scheduled 2019-09-01 Microalbumin [facility] Test 00:00:00 measurement, urine, Medical Branch quantitative (procedure) [code = 928839254] Future Scheduled 2019-09-01 Microalbumin [facility] Test 00:00:00 measurement, urine, Medical Branch quantitative (procedure) [code = 879165788] Future Scheduled 1991 DTaP,Tdap,and Td Univers ity [facility] Test 00:00:00 Vaccines (1 - Tdap) Medical Branch [code = DTaP,Tdap,and Td Vaccines (1 - Tdap)] Future Scheduled 1991 DTaP,Tdap,and Td Univers ity [facility] Test 00:00:00 Vaccines (1 - Tdap) Medical Branch [code = DTaP,Tdap,and Td Vaccines (1 - Tdap)] Future Scheduled 1990 Hepatitis C screening Un [facility] [place] Test 00:00:00 (procedure) [code = Medical Branch [id number]] Future Scheduled 1990 Hepatitis C screening [facility] [place] Test 00:00:00 (procedure) [code = Medical Branch [id number]] Future Scheduled 1988 SARS-CoV-2 (COVID-19) [facility] [place] Test 00:00:00 Vaccine (1) [code = Medical Branch SARS-CoV-2 (COVID-19) Vaccine (1)] Future Scheduled 1988 SARS-CoV-2 (COVID-19) [facility] [place] Test 00:00:00 Vaccine (1) [code = Medical Branch SARS-CoV-2 (COVID-19) Vaccine (1)] Future Scheduled 1982 Examination of retina [facility] [place] Test 00:00:00 (procedure) [code = Medical Branch [id number]] Future Scheduled 1982 Examination of retina [facility] [place] Test 00:00:00 (procedure) [code = Medical Branch [id number]] Future Scheduled 1978 PNEUMOCOCCAL 0-64 Un[facility] [place] Test 00:00:00 YEARS COMBINED SERIES Medica l Branch (1 of 1 - PPSV23) [code = PNEUMOCOCCAL 0-64 YEARS COMBINED SERIES (1 of 1 - PPSV23)] Future Scheduled 1978 PNEUMOCOCCAL 0-64 Univer sity of [place] Test 00:00:00 YEARS COMBINED SERIES Medica l Branch (1 of 1 - PPSV23) [code = PNEUMOCOCCAL 0-64 YEARS COMBINED SERIES (1 of 1 - PPSV23)] Encounters Start End Encounter Admission Attending Care Care Encounter Source Date/Time Date/Time Type Type Clinicians Facility Department ID 2020-10-01 2020-10-01 Office Lucas NHMINDY [id number] 15:08:27 16:09:31 Visit [facility] [id number] Shruthi [id number] All[place] [id number] nal 044 Office [address] [facility] 2018-06-27 2018-06-27 [facility] [id number] [address] 11:57:00 11:57:00 [facility] Medicine Medicine Outpati ent Clinics 2018-06-15 2018-06-15 [facility] [id number] 16:24:00 16:24:00 [facility] [place] [facility] [employer] [facility] Medicine Outpati ent Clinics 2018-06-13 2018-06-13 [facility] [id number] 13:30:00 13:30:00 [facility] [place] [facility] [employer] [facility] Clinics 2017-12-12 2017-12-12 [facility] [id number] 13:22:00 13:22:00 [facility] [place] [facility] [employer] [facility] Medicine Outpati ent Clinics 2017-11-20 2017-11-20 [facility] [id number] 10[facility]30:00 10:30:00 [facility] [place] [facility] [employer] [facility] Medicine Outpati ent Clinics 2017-11-02 2017-11-02 [facility] [id number] 15:15:00 15:15:00 t [place] [facility] [employer] [facility] Results This patient has no known results.
[2020-10-03 18:38] LABS: Absolute Lymphocytes (CBC) 1.2 K/uL (0.7-4.9); Basophils % 0.8 % (0-1.3); Hematocrit 40.5 % (36.0-45.0); Lymphocytes % 12.9 % (15.3-44.8); MPV 8.4 fL (7.6-11.3); RBC Red Blood Cell Count 4.42 M/uL (3.86-4.86)
[2020-10-03 18:58] LABS: ALT/SGPT 15 U/L (12-78); AST/SGOT 11 U/L (15-37); Albumin 3.2 g/dL (3.4-5.0); Alkaline Phosphatase 93 U/L (45-117); BUN Blood Urea Nitrogen 14 mg/dL (7-18); Bicarbonate 23 mmol/L (21-32); Bilirubin Direct 0.2 mg/dL (0-0.2); Bilirubin Total 0.5 mg/dL (0.2-1.0); Glucose Level 164 mg/dL (74-106); Magnesium 1.5 mg/dL (1.8-2.4); NT PRO-BNP 694 pg/mL (<125); Potassium 3.7 mmol/L (3.5-5.1); Protein, Total 7.6 g/dL (6.4-8.2); Sodium Level 140 mmol/L (136-145); Troponin (Emerg Dept Use Only) < 0.02 ng/mL (0.0-0.045)
--- NOTE | 2020-10-03 19:12 | RAD REPORT ---
EXAM DESCRIPTION: RAD - Chest Single View - 10/03/2020 7:04 pm CLINICAL HISTORY: COUGH Chest pain. COMPARISON: Chest Single View dated 09/28/2020; Chest Single View dated 07/16/2020; Chest Single View d ated 05/06/2020; Chest Single View dated 12/24/2019 FINDINGS: Portable technique limits examination quality. The lungs are grossly clear. The heart is normal in size. No displaced fractures. Sternotomy wires. IMPRESSION: No acute intrathoracic process suspected.
--- NOTE | 2020-10-03 19:24 | ER ---
Nurse's Notes [facility] Name: Karen Shah Age: 50 yrs Sex: Female : 1970 Arrival Date: 10/03/2020 Time: 17:57 Bed 4 Private MD: Diagnosis: Type 1 diabetes mellitus;Hypoglycemia, unspecified;Hypomagnesemia Presentation: 10/03 18:21 Chief complaint: EMS states: called out for hypoglycemia, on scene BGL read LOW, was em given oral glucagon, unable to start an IV, on arrival BGL 26, pt awake and alert on arrival, BGL 149 in ED, DR. Villa at bedside starting left EJ, labs collected. Coronavirus screen: Client denies travel out of the [place] in the last 14 days. Ebola Screen: Patient negative for fever greater than or equal to 101.5 degrees Fahrenheit, and additional compatible Ebola Virus Disease symptoms Patient denies exposure to infectious person. Patient denies travel to an Ebola-affected area in the 21 days before illness onset. No symptoms or risks identified at this time. Initial Sepsis Screen: Does the patient meet any 2 criteria? No. Patient's initial sepsis screen is negative. Does the patient have a suspected source of infection? No. Patient's initial sepsis screen is negative. Risk Assessment: Do you want to hurt yourself or someone else? Patient reports no desire to harm self or others. Onset of symptoms was October 03, 2020. 18:21 Method Of Arrival: EMS: [facility] em 18:21 Acuity: ARIEL 2 em Historical: - Allergies: 18:23 Adhesives; em 18:23 Demerol; em 18:23 Toradol; em 18:23 tramadol; em - PMHx: 18:23 CAD; CVA; Diabetes - IDDM; Hypertension; Myocardial infarction; Right AKA; Seizures; em High Cholesterol; - Immunization history:: Adult Immunizations up to date. - Social history:: Smoking status: Patient denies any tobacco usage or history of. Screenin:24 Abuse screen: Denies threats or abuse. Nutritional screening: No deficits noted. em Tuberculosis screening: No symptoms or risk factors identified. Fall Risk None identified. Assessment: 18:21 General: Appears in no apparent distress. comfortable, Behavior is calm, cooperative, em appropriate for age. Pain: Denies pain. Neuro: Level of Consciousness is awake, alert, obeys commands, Oriented to person, place, time, situation. Cardiovascular: Capillary refill < 3 seconds Patient's skin is warm and dry. Respiratory: Airway is patent Respiratory effort is even, unlabored, Respiratory pattern is regular, symmetrical. Derm: Skin is intact, is healthy with good turgor, Skin is pink, warm \T\ dry. 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 18:55 Reassessment: request pain medication for left hip, reports she takes [place] 10 at home. em 20:21 Reassessment: Patient and/or family updated on plan of care and expected duration. Pain ea level reassessed. Patient is alert, oriented x 3, equal unlabored respirations, skin warm/dry/pink. 20:54 Reassessment: Patient and/or family updated on plan of care and expected duration. Pain ea level reassessed. Patient is alert, oriented x 3, equal unlabored respirations, skin warm/dry/pink. Discharge instruction given to patient verbalized the understanding of instruction. Pt left ED ambulatory tolerating well. Vital Signs: 18:21 BP 142 / 83; Pulse 76; Resp 18; Temp 97.8; Pulse Ox 99% on R/A; Weight 59.87 kg; Height em 5 ft. 4 in. (162.56 cm); Pain 0/10; 19:00 BP 140 / 89; Pulse 78; Resp 18; Pulse Ox 100% on R/A; em 20:22 BP 131 / 57; Pulse 76; Resp 18; Pulse Ox 100% ; ea 20:30 BP 114 / 65; Pulse 70; Resp 18; Pulse Ox 99% ; ea 18:21 Body Mass Index 22.66 (59.87 kg, 162.56 cm) em ED Course: 17:57 Patient arrived in ED. ss 18:01 Isidro Villa MD is Attending Physician. chasity 18:21 Carlos Perez, CHIDI is Primary Nurse. em 18:23 Triage completed. em 18:23 Arm band placed on. em 18:24 Patient has correct armband on for positive identification. Placed in gown. Bed in low em position. Side rails up X2. Adult w/ patient. Pulse ox on. NIBP on. 18:24 Initial lab(s) drawn, by me, sent to lab. Inserted saline lock: 20 gauge in left EJ, em using aseptic technique. ,using aseptic technique. started by Dr. Villa Blood collected. 19:04 XRAY Chest (1 view) In Process Unspecified. EDMS 20:53 No provider procedures requiring assistance completed. IV discontinued, intact, ea bleeding controlled, No redness/swelling at site. Pressure dressing applied. Administered Medications: 20:03 Drug: Magnesium Sulfate 1 grams Route: IVPB; Infused Over: 1 hrs; Site: Other; ea 20:43 Follow up: IV Status: Completed infusion; IV Intake: 100ml ad5 20:03 Drug: morphine 2 mg Route: IVP; Site: Other; ea 20:03 Drug: Zofran (Ondansetron) 4 mg Route: IVP; Site: Other; ea 20:44 Follow up: Response: No adverse reaction; Nausea is decreased ad5 20:53 Drug: morphine 2 mg Route: IVP; Site: Other; ea Intake: 20:43 IV: 100ml; Total: 100ml. ad5 Outcome: 19:24 Discharge ordered by . chasity 20:53 Discharged to home via wheelchair, with family. ankur 20:53 Condition: stable 20:53 Discharge instructions given to patient, Instructed on discharge instructions, follow up and referral plans. medication usage, Demonstrated understanding of instructions, follow-up care, medications, Prescriptions given X 1. 21:01 Patient left the ED. ea Signatures: Dispatcher [employer] JULIOIN Isidro Villa MD MD cha Munoz, Edgar, RN RN em Smirch, Shelby, RN RN ss Antunez, Elena, RN RN ea Davidson, Andrea ad5
--- NOTE | 2020-10-03 19:24 | EDPHYS ---
Physician Documentation [facility] Name: Karen Shah Age: 50 yrs Sex: Female : 1970 Arrival Date: 10/03/2020 Time: 17:57 Bed 4 Private MD: ED Physician Isidro Villa HPI: 10/03 19:13 This 50 yrs old Female presents to ER via EMS with complaints of LOW Blood chasity Sugar. 19:13 The patient or guardian reports. Onset: The symptoms/episode began/occurred just prior chasity to arrival. Associated signs and symptoms: Pertinent positives: anorexia. Current symptoms: In the emergency department the patient's symptoms have improved, moderately, is more alert. The patient has experienced similar episodes in the past, multiple times. Historical: - Allergies: 18:23 Adhesives; em 18:23 Demerol; em 18:23 Toradol; em 18:23 tramadol; em - PMHx: 18:23 CAD; CVA; Diabetes - IDDM; Hypertension; Myocardial infarction; Right AKA; Seizures; em High Cholesterol; - Immunization history:: Adult Immunizations up to date. - Social history:: Smoking status: Patient denies any tobacco usage or history of. ROS: 19:19 Constitutional: Negative for fever, chills, and weight loss, Eyes: Negative for injury, chasity pain, redness, and discharge, ENT: Negative for injury, pain, and discharge, Neck: Negative for injury, pain, and swelling, Cardiovascular: Negative for chest pain, palpitations, and edema, Respiratory: Negative for shortness of breath, cough, wheezing, and pleuritic chest pain, Abdomen/GI: Negative for abdominal pain, nausea, vomiting, diarrhea, and constipation, Back: Negative for injury and pain, : Negative for injury, bleeding, discharge, and swelling, MS/Extremity: Negative for injury and deformity, Skin: Negative for injury, rash, and discoloration, Neuro: Negative for headache, weakness, numbness, tingling, and seizure, Psych: Negative for depression, anxiety, suicide ideation, homicidal ideation, and hallucinations, Allergy/Immunology: Negative for hives, rash, and allergies, Hematologic/Lymphatic: Negative for swollen nodes, abnormal bleeding, and unusual bruising. 19:19 Endocrine: Positive for AMS, NOT EATING. Exam: 19:19 Constitutional: This is a well developed, well nourished patient who is awake, alert, chasity and in no acute distress. Head/Face: Normocephalic, atraumatic. Eyes: Pupils equal round and reactive to light, extra-ocular motions intact. Lids and lashes normal. Conjunctiva and sclera are non-icteric and not injected. Cornea within normal limits. Periorbital areas with no swelling, redness, or edema. ENT: Nares patent. No nasal discharge, no septal abnormalities noted. Tympanic membranes are normal and external auditory canals are clear. Oropharynx with no redness, swelling, or masses, exudates, or evidence of obstruction, uvula midline. Mucous membranes moist. Neck: Trachea midline, no thyromegaly or masses palpated, and no cervical lymphadenopathy. Supple, full range of motion without nuchal rigidity, or vertebral point tenderness. No Meningismus. Chest/axilla: Normal chest wall appearance and motion. Nontender with no deformity. No lesions are appreciated. Cardiovascular: Regular rate and rhythm with a normal S1 and S2. No gallops, murmurs, or rubs. Normal PMI, no JVD. No pulse deficits. Respiratory: Lungs have equal breath sounds bilaterally, clear to auscultation and percussion. No rales, rhonchi or wheezes noted. No increased work of breathing, no retractions or nasal flaring. Abdomen/GI: Soft, non-tender, with normal bowel sounds. No distension or tympany. No guarding or rebound. No evidence of tenderness throughout. Back: No spinal tenderness. No costovertebral tenderness. Full range of motion. Skin: Warm, dry with normal turgor. Normal color with no rashes, no lesions, and no evidence of cellulitis. MS/ Extremity: Pulses equal, no cyanosis. Neurovascular intact. Full, normal range of motion. Neuro: Awake and alert, GCS 15, oriented to person, place, time, and situation. Cranial nerves II-XII grossly intact. Motor strength 5/5 in all extremities. Sensory grossly intact. Cerebellar exam normal. Normal gait. Psych: Awake, alert, with orientation to person, place and time. Behavior, mood, and affect are within normal limits. 19:33 ECG was reviewed by the Attending Physician. [facility] Vital Signs: 18:21 BP 142 / 83; Pulse 76; Resp 18; Temp 97.8; Pulse Ox 99% on R/A; Weight 59.87 kg; Height em 5 ft. 4 in. (162.56 cm); Pain 0/10; 19:00 BP 140 / 89; Pulse 78; Resp 18; Pulse Ox 100% on R/A; em 20:22 BP 131 / 57; Pulse 76; Resp 18; Pulse Ox 100% ; ea 20:30 BP 114 / 65; Pulse 70; Resp 18; Pulse Ox 99% ; ea 18:21 Body Mass Index 22.66 (59.87 kg, 162.56 cm) em MDM: 18:01 Patient medically screened. chasity 19:21 Differential diagnosis: hyperglycemia, hypoglycemic episode. Data reviewed: vital chasity signs, nurses notes, lab test result(s), EKG, radiologic studies, plain films. Data interpreted: breaker layer: rate is 78 beats/min, rhythm is regular. Test interpretation: by ED physician or midlevel provider: ECG, plain radiologic studies. Counseling: I had a detailed discussion with the patient and/or guardian regarding: the historical points, exam findings, and any diagnostic results supporting the discharge/admit diagnosis, lab results, radiology results, the need for outpatient follow up, for definitive care, a family practitioner. 10/03 18:22 Order name: Basic Metabolic Panel [facility] 10/03 18:22 Order name: CBC with Diff [facility] 10/03 18:22 Order name: LFT's; Complete Time: 19:11 [facility] 10/03 18:22 Order name: Magnesium; Complete Time: 19:11 [facility] 10/03 18:22 Order name: NT PRO-BNP; Complete Time: 19:11 [facility] 10/03 18:22 Order name: Troponin (emerg Dept Use Only); Complete Time: 19:11 [facility] 10/03 18:22 Order name: XRAY Chest (1 view) [facility] 10/03 18:22 Order name: Basic Metabolic Panel; Complete Time: 19:11 [facility] 10/03 18:22 Order name: CBC with Automated Diff; Complete Time: 19:11 [facility] 10/03 18:32 Order name: Glucose, Ancillary Testing; Complete Time: 19:11 [facility] 10/03 20:47 Order name: Glucose, Ancillary Testing [facility] 10/03 18:22 Order name: EKG; Complete Time: 18:23 [facility] 10/03 18:22 Order name: Cardiac monitoring; Complete Time: 18:25 [facility] 10/03 18:22 Order name: IV Saline Lock; Complete Time: 18:25 [facility] 10/03 18:22 Order name: Labs collected and sent; Complete Time: 18:25 [facility] 10/03 18:22 Order name: O2 Per Protocol; Complete Time: 18:25 [facility] 10/03 18:22 Order name: O2 Sat Monitoring; Complete Time: 18:25 [facility] 10/03 18:22 Order name: Diet Regular; Complete Time: 18:23 [facility] 10/03 19:33 Order name: Blood Glucose Level; Complete Time: 20:36 [facility] EC:33 Rate is 80 beats/min. Rhythm is regular. QRS [place] is Normal. MD interval is normal. QRS chasity interval is normal. QT interval is normal. No Q waves. T waves are Normal. No ST changes noted. Clinical impression: Normal ECG and No evidence of ischemia. Interpreted by me. Reviewed by me. Administered Medications: 20:03 Drug: Magnesium Sulfate 1 grams Route: IVPB; Infused Over: 1 hrs; Site: Other; ea 20:43 Follow up: IV Status: Completed infusion; IV Intake: 100ml ad5 20:03 Drug: morphine 2 mg Route: IVP; Site: Other; ea 20:03 Drug: Zofran (Ondansetron) 4 mg Route: IVP; Site: Other; ea 20:44 Follow up: Response: No adverse reaction; Nausea is decreased ad5 20:53 Drug: morphine 2 mg Route: IVP; Site: Other; ea Disposition: 10/03/20 19:24 Discharged to Home. Impression: Type 1 diabetes mellitus, Hypoglycemia, unspecified, Hypomagnesemia. - Condition is Stable. - Discharge Instructions: Hypoglycemia, Hypomagnesemia, Blood Glucose Monitoring, Adult, Diabetes Mellitus and Food, Hypoglycemia, [id number], Tips for Eating Away From Home If You Have Diabetes, Type 1 Diabetes Mellitus, Diagnosis, Adult, [id number]. - Prescriptions for magnesium oxide - take 400 milligram by ORAL route once daily; 20 tablet. - Medication Reconciliation Form, Thank You Letter, Antibiotic Education, Prescription Opioid Use form. - Follow up: Private Physician; When: 24 Hours; Reason: Recheck today's complaints, Continuance of care, Re-evaluation by your physician. - Problem is new. - Symptoms have improved. Signatures: Dispatcher [employer] Isidro Good MD MD cha Munoz, Edgar, RN RN Diana Vasquez RN RN Ridge Dean Corrections: (The following items were deleted from the chart) 21:01 19:24 10/03/2020 19:24 Discharged to Home. Impression: Type 1 diabetes mellitus; ea Hypoglycemia, unspecified; Hypomagnesemia. Condition is Stable. Forms are Medication Reconciliation Form, Thank You Letter, Antibiotic Education, Prescription Opioid Use. Follow up: Private Physician; When: 24 Hours; Reason: Recheck today's complaints, Continuance of care, Re-evaluation by your physician. Problem is new. Symptoms have improved. chasity
[2020-10-03] MEDS ORDERED: Magnesium Sulfate 2gm IVPB 2 G/50 ML BAG IV ONE (20:05)
[2020-10-03] MEDS ORDERED: ONDANSETRON 4 MG/2 ML VIAL ONE (20:05)
[2020-10-03] MEDS ORDERED: MORPHINE 2 MG/ML SYR ONE ×2 (20:05→21:07)
[2020-10-03 21:08] VITALS: TEMP 97.8
[2020-10-03 21:12] VITALS: BP 114/65; O2SAT 99
--- NOTE | 2020-10-04 12:13 | EKG ---
Test Date: 2020-10-03 Test Time: 18:47:40 Stone Polisher Hand: RIAZ MEASUREMENT RESULTS: Intervals: Rate: 80 NH: 158 QRSD: 88 QT: 418 QTc: 482 [place]: P: 69 NH: 158 QRS: -5 T: 39 INTERPRETIVE STATEMENTS: Normal sinus rhythm Anterior infarct, age undetermined Abnormal ECG Compared to ECG 09/28/2020 13:28:52 No significant changes Electronically Signed On 10-04-20 12:11:50 CDT by Griffin Mejia
== END 2020-10-03 21:01 | disposition home or self-care (01) ==
LOC: ER 17:47
DX: E10.649 Type 1 diabetes mellitus with hypoglycemia without coma (principal); E83.42 Hypomagnesemia; I25.10 Atherosclerotic heart disease of native coronary artery without angina pectoris; Z86.73 Personal history of transient ischemic attack (TIA), and cerebral infarction without residual deficits; I10 Essential (primary) hypertension; I25.2 Old myocardial infarction; E78.00 Pure hypercholesterolemia, unspecified; Z89.511 Acquired absence of right leg below knee
CPT/HCPCS: 93005; 85025; 80048; 36415; 83735; 82947 ×2; 80076; 84484; 83880; 71045; J2270 ×2; J3475; J2405; 96365; 96375; 99284

== ENCOUNTER 2021-04-13 21:04 | Emergency (ER) | payer OTHER ==
--- OUTSIDE RECORDS SUMMARY | 2021-04-13 21:28 | XMS REPORT | Continuity of Care Document ---
:1970 Author Organization [facility] t Address [address] [place] [address] Care Team Providers Name Role Phone Igor BROWN, Bennie Primary Care Physician Michael VILLEGAS Attending Clinician Unavailable Joan Nieves DO Attending Clinician Bang ESPINOZA Attending Clinician BANG Attending Clinician Unavailable Fredy MURILLO, B Attending Clinician Unavailable Roger KING Attending Clinician Gregory BROWN Attending Clinician GREGORY Attending Clinician Unavailable Mark BROWN, Michael Attending Clinician Igor BROWN, Bennie Attending Clinician Lc Leonard Attending Clinician Han BROWN, Marco Attending Clinician Hosea BROWN, [facility] Attending Clinician Bennie COSTA Attending Clinician Unavailable Trace BROWN, A Attending Clinician Pcp, Does Not Have A Attending Clinician Vance BROWN Attending Clinician VANCE Attending Clinician Unavailable Lisa MURILLO, A Attending Clinician Unavailable Jeanmarie ESPINOZA, F Attending Clinician Enzo BROWN, S Attending Clinician Alessandra BROWN Attending Clinician Tomás BROWN Attending Clinician Doctor Unassigned, Name Attending Clinician Unavailable Art Barrett DO Attending Clinician Kylah Salinas MD Attending Clinician Kylah SALINAS Attending Clinician Unavailable Ady BROWN, Eligio Attending Clinician 1, Lab Attending Clinician Unavailable KILO Attending Clinician Unavailable Kilo FRAIRE Attending Clinician 2, Lab Attending Clinician Unavailable Kyler MURILLO Attending Clinician Juan Antonio BROWN Attending Clinician JUAN ANTONIO Admitting Clinician Unavailable Roger KING Admitting Clinician Lc Leonard Admitting Clinician Tomás BROWN Admitting Clinician KILO Admitting Clinician Unavailable Juan Antonio BROWN Admitting Clinician Payers Payer Name Policy Type Policy Number Effective Date Expiration Date S ángel MEDICARE PART A [id number] 2017 \\T\\ B 00:00:00 Problems Condition Condition Condition Status Onset Resolution Last Treating Co mments Source Name Details Category Date Date Treatment Clinician Date UTI UTI Disease Active Univers (urinary (urinary 8-20 ity of tract tract 00:00: [place] infection) infection) 00 Me dical Branch Dizziness Dizziness Disease Active Uni vers 8-20 ity of 00:00: [place] [address] Medical Branch Weakness Weakness Disease Active Unive rs 8-20 ity of 00:00: [address] Branch CAD in CAD in Disease Active Univers [place] 7-05 ity of artery artery 00:00: [place] [facility] Branch Hypoglycem Hypoglycem Disease Active U nivers ia ia 6-11 ity of 00:00: [place] [address] Medical [place] 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 5-06 it y of on on 00:00: [place] [facility] Poor Poor Disease Active Univers appetite appetite 5-06 ity of 00:00: [place] [address] Medical Branch Hypoalbumi Hypoalbumi Disease Active U nivers nemia nemia 5-06 ity of 00:00: [place] [facility] Hyperglyce Hyperglyce Disease Active U nivers filomena filomena 4-11 ity of 00:00: [place] [facility] Complicate Complicate Disease Active U nivers d UTI d UTI 4-10 [...] ity of left hip, left hip, 00:00: [place] unspecif[place] unspecifie 00 Me dical d d Branch osteoarthr osteoarthr itis type itis type Obesity Obesity Disease Active Univers (BMI (BMI 3-16 ity of 30-39.9) 30-39.9) 00:00: [place] [facility] Chest pain Chest pain Disease Active U nivers 3-16 ity of 00:00: [place] 00 Medical Branch Coronary Coronary Disease Active Unive rs artery artery 3-09 ity of disease disease 00:00: [place] involving involving 00 Medi [place] coronary coronary artery of artery of [place] heart heart without without angina angina pectoris pectoris PAD PAD Disease Active Univers (periphera (periphera 3-09 it y of l artery l artery 00:00: [place] disease) disease) 00 Medica l Branch Chronic Chronic Disease Active 2020- Univers heart heart 3-09 ity of failure failure 00:00: [place] with with 00 Medical preserved preserved Bran ch ejection ejection fraction fraction Coronary Coronary Disease Active Unive rs artery artery 3-09 ity of disease disease 00:00: [place] involving involving 00 Medi [place] coronary coronary artery of artery of [place] heart heart without without angina angina pectoris pectoris PAD PAD Disease Active Univers (periphera (periphera 3-09 it y of l artery l artery 00:00: [place] disease) disease) 00 Medica l Branch GARY GARY Disease Active Overview: Univer s (stress (stress 02-02 Formattin ity o f urinary urinary 00:00: g of this [place] incontinen incontinen 00 note Me dical ce, ce, might be Branch female) female) different from the original. Added automatic ally from request for surgery [id number] GERD GERD Disease Active Univers (gastroeso (gastroeso it y of phageal phageal [place] reflux reflux Medical disease) disease) Branch DM DM Disease Active Univers (diabetes (diabetes ity of mellitus) mellitus) [facility] [place] [facility] Depression Depression Disease Active U nivers ity of [facility] CVA CVA Disease Active Univers (cerebral (cerebral ity of vascular vascular [place] accident) accident) [facility] CHF CHF Disease Active Univers (congestiv (congestiv it y of e heart e heart [place] failure) failure) [facility] Anxiety Anxiety Disease Active Univers ity of [facility] Angina Angina Disease Active Univers pectoris pectoris ity of [facility] H/O right H/O right Disease Active Uni vers coronary coronary ity of artery artery [place] stent stent Medical placement placement Bran ch Hyperlipid Hyperlipid Disease Active U nivers emia, emia, ity of unspecifie [place]spec[place]ie [place] d d Medical hyperlipid hyperlipid Br anch emia type emia type Essential Essential Disease Active Uni vers hypertensi hypertensi it y [facility], benign [facility] Hx of CABG Hx of CABG Disease Active U nivers ity of [facility] Migraines Migraines Disease Active Uni vers ity of [facility] Seizures Seizures Disease Active Unive rs ity of [facility] Unilateral Unilateral Disease Active U nivers AKA, right AKA, right it y of [facility] High High Disease Active Univers cholestero cholestero it y of l l [facility] HTN HTN Disease Active Univers (hypertens (hypertens it y of ion) ion) [facility] Unilateral Unilateral Disease Active U nivers AKA, right AKA, right it y of [facility] Unilateral Unilateral Disease Active U nivers AKA, right AKA, right it y of [facility] History of History of Problem Active C [...] with l hyperglyce hyperglyce [facility] Clinics Type 2 Type [address] [facility] diabetes diabetes [facility] mellitus mellitus Memori a with other with other l specified specified Outp ati complicati complicati en t on on Clinics Hx of CABG Hx of CABG Problem Active [facility] Chronic Chronic Problem Active [facility] pain pain [facility] disorder disorder 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[facility] 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 [facility] current current [facility] - use of use of Memoria insulin insulin l [facility] Neuropathy Neuropathy Problem Active [facility] Depression Depression Problem Active [facility] with with [facility] - anxiety anxiety Memoria l [facility] HTN HTN Problem Active [facility] (hypertens (hypertens Charley kes - ion), ion), Memoria benign benign l [facility] Clinics Seizures Seizures Problem [facility] Coronary Coronary Problem Active [facility] t artery artery [facility] - disease disease Memoria involving involving l coronary coronary Outpat i bypass bypass ent graft of graft of Clinic s [place] heart with heart with angina angina pectoris pectoris Dependent Dependent Problem Active [facility] on on [facility] - wheelchair wheelchair Me moria l [facility] Clinics History of History of Problem Active [facility] right right [facility] - above knee above knee Me moria amputation amputation l [facility] Clinics Allergies, Adverse Reactions, Alerts Allergy Allergy Status Severity Reaction(s) Onset Inactive Treating Comm ents Source Name Type Date Date Clinician Ketorola Propensi Active Hives Univer s c ty to 7-20 ity of Trometha adverse 00:00: [place] mine reaction 00 Medical s Branch Tramadol Propensi Active Hives Univer s ty to 7-20 ity of adverse 00:00: [place] reaction 00 Medical s Branch KETOROLA DRUG Active Hives 2017-0 Univers C INGREDI 7-20 ity of TROMETHA 00:00: [place] MINE 00 Medical Branch TRAMADOL DRUG Active Hives 2017-0 Univers INGREDI 7-20 ity of 00:00: [place] 00 Medical [place] Toradol Adverse Active Info Not [facility] Reaction Available [facility] tramadol Adverse Active Info Not [facility] Reaction [facility] Social History Social Habit Start Date Stop Date Quantity Comments Source History of tobacco Cigarette Smoker [facility] Exposure to Not sure [facility] SARS-CoV-2 (event) [facility] Alcohol intake 2021-02-12 2021-02-12 Ex-drinker [facility] 00:00:00 00:00:00 (finding) [facility] Education 2021-01-15 2021-01-[address] [place] [address] 00:00:00 00:00:00 [facility] History SDOH 2020-05-08 2020-05-08 99 University o f Alcohol Frequency 00:00:00 00:00:00 [facility] Branch History SDOH 2020-05-08 2020-05-08 99 University o f Alcohol Std Drinks 00:00:00 00:00:00 [facility] History [facility] 2020-05-08 2020-05-08 99 University o f Alcohol Binge 00:00:00 00:00:00 [facility] Branch Tobacco Comment 2020-04-03 2020-04-03 smoking since 12 Uni versity of 00:00:00 00:00:00 years old [facility] Alcohol Comment 2019-10-11 2019-10-11 rare Universit y of 00:00:00 00:00:00 [facility] Cigarettes smoked 2018-02-21 2018-02-21 Univers ity of current (pack per 00:00:00 00:00:00 [facility] ) - Reported Branch Tobacco use and 2018-02-21 2018-02-21 Never used Universit y of exposure 00:00:00 00:00:00 [facility] Sex [birth year] At [birth year] Universit y of 00:00:00 00:00:00 [facility] Smoking Status Start Date Stop Date Source Current every day smoker 2020-10-01 00:00:00 Uni versity of [facility] Medications Ordered Filled Start Stop Current Ordering Indication Dosage Frequency Signature Comments Components Source Medication Medication Date Date Medication? Clinician (SIG) Name Name cefTRIAXone 2020- Yes 1000mg 1,000 mg, Univers (ROCEPHIN) 02-12 IV ity of 1,000 mg in 22:45: 10:44 [place], [place] NaCl 0.9% 00 :00 ONCE, 1 Medical (NS) 50 mL dose, On Branc h MINI-BAG Mon02/12/21 at 1745, Administer over 30 Minutes, 50 mL
Reas on for Anti-Infec tive: Empiric Therapy for Suspected Infection< br>Empiric Therapy Site: Urine
D uration of therapy: 72 hours cefTRIAXone 2020- Yes 1000mg 1,000 mg, Univers (ROCEPHIN) 02-12 IV ity of 1,000 mg in 22:45: 10:44 [place], [place] NaCl 0.9% 00 :00 ONCE, 1 Medical (NS) 50 mL dose, On Bran h MINI-BAG Mon02/12/21 at 1745, Administer over 30 Minutes, 50 mL
Reas on for Anti-Infec tive: Empiric Therapy for Suspected Infection< br>Empiric Therapy Site: Urine
D uration of therapy: 72 hours insulin 2020- No 10U 10 Units, Univ ers regular 02-12 Slow IV ity of human 21:30: 21:29 [place], [place] (HUMULIN R) 00 :00 ONCE, 1 Medic al injection dose, On Branch 10 Units Mon02/12/21 at 1630, Routine NaCl 0.9% 2020- No 1000mL at 999 Uni vers (NS) bolus 02-12 mL/hr, ity of infusion 21:30: 22:08 1,000 mL, [place]aff[place] as 1,000 mL 00 :00 IV [facility] [place] ONCE, 1 dose, On Mon02/12/21 at 1630, STAT insulin 2020- No 10U 10 Units, Univ ers regular 02-12 Slow IV ity of human 21:30: 21:29 [place], [place] (HUMULIN R) 00 :00 ONCE, 1 Medic al injection dose, On Branch 10 Units Mon02/12/21 at 1630, Routine NaCl 0.9% 2020- No 1000mL at 999 Uni vers (NS) bolus 02-12 mL/hr, ity of infusion 21:30: 22:08 1,000 mL, [place] as 1,000 mL 00 :00 IV Medical [place], Branch ONCE, 1 dose, On Mon02/12/21 at 1630, STAT cefpodoxime 2020- Yes [id number] 100mg Take 1 Univers 100 mg 02-12 tablet by ity of tablet 00:00: 04:59 mouth 2 [place] 00 :00 (two) Medical times [place] daily for 7 days. cefpodoxime 2020- Yes [id number] 100mg Take 1 Univers 100 mg 02-12 tablet by ity of tablet 00:00: 04:59 mouth 2 [place] 00 :00 (two) Medical times [place] daily for 7 days. glipiZIDE 2020- Yes [id number] 10mg Take 1 U nivers 10 mg 01-18 tablet by ity of tablet 00:00: 04:59 mouth [place] 00 :00 daily for Medical 30 days. Branch glipiZIDE 2020- Yes [id number] 10mg Take 1 U nivers 10 mg 01-18 tablet by ity of tablet 00:00: 04:59 mouth [place] 00 :00 daily for Medical 30 days. [place] glipiZIDE 2020- No [id number] 10mg Take 1 U nivers 10 mg 01-18 tablet by ity of tablet 00:00: 00:00 mouth [place] 00 :00 daily for Medical 30 days. [place] glipiZIDE Yes 10mg 10 mg, Univer s (GLUCOTROL) 01-17 Oral, ity of tablet 10 14:00: DAILY, [place] mg 00 First dose Medical on Mon Branch 01/17/21 at 0900, Until Discontinu ed, Routine fluconazole 2020- No 150mg 150 mg, U nivers (DIFLUCAN) 01-17 Oral, ity of tablet 150 14:00: 13:24 DAILY, 1 [place] mg 00 :00 dose, Medical First dose Branch (after last modificati on) on 01/17/21 at 0900, TRANG<br&gt ;Reason for Anti-Infec tive: Documented Infection< br>Documen anthony Infection Site: Urine<br&g t;Duration of Therapy: Other (see Comments) nicotine 14 2020- Yes [id number] 1{patch Apply 1 Univers mg/24 hr 8-17 02-20 } Patch to ity of patch 00:00: 04:59 area(s) [place] 00 :00 every 24 Medical (twenty- Branch ur) hours for 28 days. nicotine 14 2020- Yes [id number] 1{patch Apply 1 Univers mg/24 hr 8-20 } Patch to ity of patch 00:00: 04:59 area(s) [place] 00 :00 every 24 Medical ([facility] Branch ur) hours for 28 days. nicotine 14 2020- Yes [id number] 1{patch Apply 1 Univers mg/24 hr 8-20 } Patch to ity of patch 00:00: 04:59 area(s) [place] 00 :00 every 24 Medical ([facility] Branch ur) hours for 28 days. nicotine 14 2020- Yes [id number] 1{patch Apply 1 Univers mg/24 hr 8-20 } Patch to ity of patch 00:00: 04:59 area(s) [place] 00 :00 every 24 Medical ([facility] Branch ur) hours for 28 days. nicotine 14 2020- Yes [id number] 1{patch Apply 1 Univers mg/24 hr 8-20 } Patch to ity of patch 00:00: 04:59 area(s) [place] 00 :00 every 24 Medical ([facility] Branch ur) hours for 28 days. ciprofloxac 2020- Yes [id number] 500mg Take 1 Univers in HCl 500 8 08-30 tablet by ity of mg tablet 00:00: 04:59 mouth [place] 00 :00 every 12 Medical (twelve) Branch hours for 7 days. ciprofloxac 2020- Yes [id number] 500mg Take 1 Univers in HCl 500 8 08-30 tablet by ity of mg tablet 00:00: 04:59 mouth [place] 00 :00 every 12 Medical (twelve) Branch hours for 7 days. KCL 2020- No 60meq 60 mEq, Univers (KLOR-CON 01-16 Oral, ity of M20) tablet 16:00: 16:43 ONCE, 1 [place] 60 mEq 00 :00 dose, [facility] Medical 01/16/21 at Branch 1100, Routine cefTRIAXone 0 Yes 1000mg 1,000 mg, Univers (ROCEPHIN) 01-16 IV ity of 1,000 mg in 14:30: [place], [place] NaCl 0.9% 00 Q24H ABX, Medic al (NS) [address] dose [address] [facility] MINI-BAG on [facility] 01/16/21 at 0930, Until Discontinu ed, Administer over 30 Minutes, 50 mL
Reas on for Anti-Infec tive: Empiric Therapy for Suspected Infection< br>Empiric Therapy Site: Urine
D uration of therapy: 7 days pantoprazol Yes 40mg 40 mg, Univ ers e 01-16 Oral, ity of (PROTONIX) 14:00: DAILY, [place] EC tablet 00 First dose Medi blanquita 40 mg on [facility] 01/16/21 at 0900, Until Discontinu ed, Routine ezetimibe Yes 10mg 10 mg, Univer s (ZETIA) 01-16 Oral, ity of tablet 10 14:00: DAILY, [place] mg 00 First dose Medical on [facility] 01/16/21 at 0900, Until Discontinu ed, Routine clopidogreL 0 Yes 75mg 75 mg, Univ ers (PLAVIX) 01-16 Oral, ity of tablet 75 14:00: DAILY, [place] mg 00 First dose Medical on [facility] 01/16/21 at 0900, Until Discontinu ed, Routine aspirin 0 Yes 81mg 81 mg, Univers chewable 01-16 Oral, ity of tablet 81 14:00: DAILY, [place] mg 00 First dose Medical on [facility] 01/16/21 at 0900, Until Discontinu ed, Routine fluconazole 2020- No 150mg 150 mg, U nivers (DIFLUCAN) 01-16 Oral, ity of tablet 150 14:00: 20:40 DAILY, [place] mg 00 :05 First dose Medical on [facility] 01/16/21 at 0900, Until Discontinu ed, TRANG
Re ason for Anti-Infec tive: Documented Infection< br>Documen anthony Infection Site: Urine
D uration of Therapy: Other (see Comments) Sliding Yes Subcutaneo Univ ers Scale 01-16 us, TID ity of Insulin - 13:00: MEALS, [place] Lispro 00 First dose Medical (HumaLOG) + (after [place] Fsbg last Testing modificati on) on 01/16/21 at 0800, Until Discontinu ed, Routine insulin NPH No 15U 15 Units, Univers and regular 01-16 Subcutaneo i ty of human 70-30 02:30: 01:47 , ONCE, [place] (HUMULIN 00 :00 1 dose, Medical 70-30 U-100 Mon [place] INSULIN) 01/15/21 at 100 unit/mL 2130, (70-30) Routine injection 15 Units mirtazapine Yes 15mg 15 mg, [facility] ers (REMERON) 01-16 Oral, QHS, ity of tablet 15 02:00: First dose [place] mg 00 on Mon Medical 01/15/21 at Branch 2100, Until Discontinu ed, Routine atorvastati Yes 80mg 80 mg, Univ ers n (LIPITOR) 01-16 Oral, QHS, it y of tablet 80 02:00: First dose [place] mg 00 on Mon Medical 01/15/21 at Branch 2100, Until Discontinu ed, Routine gabapentin Yes 800mg 800 mg, Uni vers (NEURONTIN) 01-16 Oral, TID, it y of tablet 800 01:00: First dose [place] mg 00 on Mon Medical 01/15/21 at Branch 2000, Until Discontinu ed, Routine nicotine Yes 1{patch 1 Patch, Un cali (NICODERM) 01-15 } Topical, ity o f 14 mg/24 hr 23:15: Administer [place] patch 1 00 over 24 Medical Patch Hours, [place] Q24H, First dose on 01/15/21 at 1815, Until Discontinu ed, Routine insulin NPH Yes 40U 40 Units, U nivers and regular 01-15 Subcutaneo it y of human 70-30 22:45: us, BIDAC, [place] (HUMULIN 00 First dose Medic al 70-30 U-100 on Fri Branch INSULIN) 01/15/21 at 100 unit/mL 1745, (70-30) Until injection Discontinu 40 Units ed, Routine NaCl 0.9% Yes 1000mL at 50 Unive rs (NS) IV 8-20 mL/hr, IV ity of infusion 22:45: Infusion, [place] 1,000 mL 00 CONTINUOUS Medic al , Starting Branch 01/15/21 at 1745, Until Discontinu ed, Routine Sliding 2020-2020- No Subcutaneo Uni vers Scale 01-15 us, TID ity of Insulin - 22:45: 01:18 MEALS, [place] Lispro 00 :16 First dose Medical (HumaLOG) + on Mon Branch Fsbg 01/15/21 at Testing 1745, Until Discontinu ed, Routine enoxaparin Yes 40mg 40 mg, Unive rs (LOVENOX) 01-15 Subcutaneo ity of injection 22:00: us, DAILY, [place] 40 mg 00 First dose Medical on Fri Branch 01/15/21 at 1700, Until Discontinu ed, Routine morpHINE Yes 2mg 2 mg, Slow Uni vers injection 2 8-20 IV Push, ity of mg 21:58: Q4HPRN, [place] 52 Starting Medical Fri Branch 01/15/21 at 1658, Until Discontinu ed, Routine, Pain (scale 7-10) ondansetron Yes 4mg 4 mg, Slow Univers (ZOFRAN 8-20 IV Push, ity of (PF)) 21:32: Q6HPRN, [place] injection 4 17 Starting Medi blanquita mg Fri Branch 01/15/21 at 1632, Until Discontinu ed, Routine, Nausea and Vomiting (N/V) HYDROcodone 2020-0 2020- Yes 1{tbl} 1 tablet, Univers -acetaminop 01-15 Oral, ity of hen (NORCO 21:31: 21:30 Q6HPRN, [place] as 5) 5-325 mg 58 :58 Starting Medi blanqu[place] tablet 1 Fri Branch tablet 01/15/21 at 1631, Until 01/17/21 at 1630, Routine, Pain (scale 4-6) acetaminoph 2020-0 Yes 650mg 650 mg, Un cali en 8-20 Oral, ity of (TYLENOL) 21:31: Q6HPRN, [place] tablet 650 47 Starting Medic al mg Fri Branch 01/15/21 at 1631, Until Discontinu ed, Routine, Pain (scale 1-3) gabapentin 2020-0 Yes [id number] 800mg Take 1 Univers 800 mg 8-20 tablet by ity of tablet 00:00: mouth 3 [place] (three) Medical times Branch daily. gabapentin 2020-0 Yes [id number] 800mg Take 1 Univers 800 mg 8-20 tablet by ity of tablet 00:00: mouth [address] [place] [address] ([facility]) Medical times Branch daily. gabapentin 2020-0 Yes [id number] 800mg Take 1 Univers 800 mg 8-20 tablet by ity of tablet 00:00: mouth [address] [place] [address] ([facility]) Medical times Branch daily. gabapentin 2020-0 Yes [id number] 800mg Take 1 Univers 800 mg 8-20 tablet by ity of tablet 00:00: mouth [address] [place] [address] ([facility]) Medical times Branch daily. gabapentin 2020-0 Yes [id number] 800mg Take 1 Univers 800 mg 8-20 tablet by ity of tablet 00:00: mouth [address] [place] [address] ([facility]) Medical times Branch daily. gabapentin 2020-0 Yes [id number] 800mg Take 1 Univers 800 mg 8-20 tablet by ity of tablet 00:00: [address] ([facility]) Medical times Branch daily. gabapentin 2020-0 Yes [id number] 800mg Take 1 Univers 800 mg 8-20 tablet by ity of tablet 00:00: mouth [address] [place] [address] (three) Medical times Branch daily. gabapentin 2020-0 Yes [id number] 800mg Take 1 Univers 800 mg 8-20 tablet by ity of tablet 00:00: mouth [address] [place] [address] (three) Medical times Branch daily. ondansetron 2020-0 Yes [id number] 4mg Take 1 Univers 4 mg 8-06 tablet by ity of disintegrat 00:00: mouth [place] ing tablet 00 every 8 Medica l (eight) Branch hours as needed for Nausea and Vomiting (N/V). glucagon 3 2020-0 Yes [id number] 1{spray Use 1 Univers mg/actuatio 8-06 } [place] in ity of n [place] 00:00: each [place] 00 nostril as Medical needed Branch (hypoglyce filomena). ondansetron 0 Yes [id number] 4mg Take 1 Univers 4 mg 8-06 tablet by ity of disintegrat 00:00: mouth [place] ing tablet 00 every 8 Medica l (eight) Branch hours as needed for Nausea and Vomiting (N/V). glucagon 3 Yes [id number] 1{spray Use 1 Univers mg/actuatio 8-06 } [place] in ity of n [place]cker[place] 00:00: each [place] 00 nostril as Medical needed Branch (hypoglyce filomena). ondansetron 2020-0 Yes [id number] 4mg Take 1 Univers 4 mg 8-06 tablet by ity of disintegrat 00:00: mouth [place] ing tablet 00 every 8 Medica l (eight) Branch hours as needed for Nausea and Vomiting (N/V). glucagon 3 Yes [id number] 1{spray Use 1 Univers mg/actuatio 8-06 } [place] in ity of n Ackerly 00:00: each [place] 00 nostril as Medical needed Branch (hypoglyce filomena). ondansetron Yes [id number] 4mg Take 1 Univers 4 mg 8-06 tablet by ity of disintegrat 00:00: mouth [place] ing tablet 00 every 8 Medica l (eight) Branch hours as needed for Nausea and Vomiting (N/V). ondansetron Yes [id number] 4mg Take 1 Univers 4 mg 8-06 tablet by ity of disintegrat 00:00: mouth [place] ing tablet 00 every 8 Medica l (eight) Branch hours as needed for Nausea and Vomiting (N/V). ondansetron 2020-0 Yes [id number] 4mg Take 1 Univers 4 mg 8-06 tablet by ity of disintegrat 00:00: mouth [place] ing tablet 00 every 8 Medica l (eight) Branch hours as needed for Nausea and Vomiting (N/V). ondansetron 2020-0 Yes [id number] 4mg Take 1 Univers 4 mg 8-06 tablet by ity of disintegrat 00:00: mouth [place] ing tablet 00 every 8 Medica l (eight) Branch hours as needed for Nausea and Vomiting (N/V). ondansetron Yes [id number] 4mg Take 1 [facility] 4 mg 8-06 tablet by ity of disintegrat 00:00: mouth [place] ing tablet 00 every 8 Medica l (eight) Branch hours as needed for Nausea and Vomiting (N/V). ondansetron Yes [id number] 4mg Take 1 [facility] 4 mg 8-06 tablet by ity of disintegrat 00:00: mouth [place] ing tablet 00 every 8 Medica l (eight) Branch hours as needed for Nausea and Vomiting (N/V). ondansetron Yes [id number] 4mg Take 1 [facility] 4 mg 8-06 tablet by ity of disintegrat 00:00: mouth [place] ing tablet 00 every 8 Medica l (eight) Branch hours as needed for Nausea and Vomiting (N/V). glucagon 3 2020- No [id number] 1{spray Use 1 [facility] mg/actuatio 8- 08-20 } [place] in ity of n [place] 00:00: 00:00 each [place] 00 :00 nostril as Medical needed Branch (hypoglyce filomena). glucagon 3 2020- No [id number] 1{spray Use 1 [facility] mg/actuatio 8-06 08-20 } [place] in ity of n [place] 00:00: 00:00 each [place] 00 :00 nostril as Medical needed Branch (hypoglyce filomena). glucagon 3 2020- No [id number] 1{spray Use 1 [facility] mg/actuatio 8-06 08-20 } [place] in ity of n [place] 00:00: 00:00 each [place] 00 :00 nostril as Medical needed Branch (hypoglyce filomena). GABAPENTIN Yes [id number] TAKE 1 [facility] 800 mg 7-23 TABLET BY ity of tablet 00:00: MOUTH [place] 00 THREE Medical TIMES Branch DAILY GABAPENTIN 2020- No [id number] TAKE 1 [facility] 800 mg 7-23 08-19 TABLET BY ity of tablet 00:00: 00:00 MOUTH [place] 00 :00 THREE Medical TIMES Branch DAILY GABAPENTIN 2020- No [id number] TAKE 1 [facility] 800 mg 7-23 08-19 TABLET BY ity of tablet 00:00: 00:00 MOUTH [place] 00 :00 THREE Medical TIMES Branch DAILY clopidogreL 2021-0 Yes [id number] 75mg Take 1 [facility] 75 mg 7-07 tablet by ity of tablet 00:00: mouth [place] 00 daily. Medical Branch aspirin 81 2021-0 Yes [id number] 81mg Take 1 U nivers mg chewable 7-07 tablet by ity of tablet 00:00: mouth [place] 00 daily. Medical Branch clopidogreL 2021-0 Yes [id number] 75mg Take 1 [facility] 75 mg 7-07 tablet by ity of tablet 00:00: mouth [place] 00 daily. Medical Branch aspirin 81 2021-0 Yes [id number] 81mg Take 1 U nivers mg chewable 7-07 tablet by ity of tablet 00:00: mouth [place] 00 daily. Medical Branch clopidogreL 2021-0 Yes [id number] 75mg Take 1 [facility] 75 mg 7-07 tablet by ity of tablet 00:00: mouth [place] 00 daily. Medical Branch aspirin 81 2021-0 Yes [id number] 81mg Take 1 U nivers mg chewable 7-07 tablet by ity of tablet 00:00: mouth [place] 00 daily. Medical Branch clopidogreL 2021-0 Yes [id number] 75mg Take 1 [facility] 75 mg 7-07 tablet by ity of tablet 00:00: mouth [place] 00 daily. Medical Branch aspirin 81 2021-0 Yes [id number] 81mg Take 1 U nivers mg chewable 7-07 tablet by ity of tablet 00:00: mouth [place] 00 daily. Medical Branch clopidogreL 2021-0 Yes [id number] 75mg Take 1 [facility] 75 mg 7-07 tablet by ity of tablet 00:00: mouth [place] 00 daily. Medical Branch aspirin 81 2021-0 Yes [id number] 81mg Take 1 U nivers mg chewable 7-07 tablet by ity of tablet 00:00: mouth [place] 00 daily. Medical Branch clopidogreL 2021-0 Yes [id number] 75mg Take 1 [facility] 75 mg 7-07 tablet by ity of tablet 00:00: mouth [place] 00 daily. Medical Branch aspirin 81 2021-0 Yes [id number] 81mg Take 1 U nivers mg chewable 7-07 tablet by ity of tablet 00:00: mouth [place] 00 daily. Medical Branch clopidogreL 2021-0 Yes [id number] 75mg Take 1 [facility] 75 mg 7-07 tablet by ity of tablet 00:00: mouth [place] 00 daily. Medical Branch aspirin 81 2020-0 Yes [id number] 81mg Take 1 U nivers mg chewable 7-07 tablet by ity of tablet 00:00: mouth [place] 00 daily. Medical Branch clopidogreL 2020-0 Yes [id number] 75mg Take 1 [facility] 75 mg 7-07 tablet by ity of tablet 00:00: mouth [place] 00 daily. Medical Branch aspirin 81 2020-0 Yes [id number] 81mg Take 1 U nivers mg chewable 7-07 tablet by ity of tablet 00:00: mouth [place] 00 daily. Medical Branch clopidogreL 2020-0 Yes [id number] 75mg Take 1 [facility] 75 mg 7-07 tablet by ity of tablet 00:00: mouth [place] 00 daily. Medical Branch aspirin 81 2020-0 Yes [id number] 81mg Take 1 U nivers mg chewable 7-07 tablet by ity of tablet 00:00: mouth [place] 00 daily. Medical Branch clopidogreL 2020-0 Yes [id number] 75mg Take 1 [facility] 75 mg 7-07 tablet by ity of tablet 00:00: mouth [place] 00 daily. Medical Branch aspirin 81 2020-0 Yes [id number] 81mg Take 1 U nivers mg chewable 7-07 tablet by ity of tablet 00:00: mouth [place] 00 daily. Medical Branch clopidogreL 2020-0 Yes [id number] 75mg Take 1 [facility] 75 mg 7-07 tablet by ity of tablet 00:00: mouth [place] 00 daily. Medical Branch aspirin 81 2020-0 Yes [id number] 81mg Take 1 U nivers mg chewable 7-07 tablet by ity of tablet 00:00: mouth [place] 00 daily. Medical Branch clopidogreL 2020-0 Yes [id number] 75mg Take 1 [facility] 75 mg 7-07 tablet by ity of tablet 00:00: mouth [place] 00 daily. Medical Branch aspirin 81 2020-0 Yes [id number] 81mg Take 1 U nivers mg chewable 7-07 tablet by ity of tablet 00:00: mouth [place] 00 daily. Medical Branch aspirin 81 2020-0 2021- No 81mg Take 1 Univ ers mg chewable 7-06 07-06 tablet by it y of tablet 18:00: 00:00 mouth [place] 57 :00 daily. Medical Branch ezetimibe 2020-0 Yes 10mg 10 mg, Univer s (ZETIA) 7-06 Oral, ity of tablet 10 14:00: DAILY, [place] mg 00 First dose Medical on [facility] 12/01/20 at 0900, Until Discontinu ed, Routine pantoprazol Yes 40mg 40 mg, [facility] [place] e 12-01 Oral, ity of (PROTONIX) 14:00: DAILY, [place] EC tablet 00 First dose Medi blanquita 40 mg on [facility] 12/01/20 at 0900, Until Discontinu ed, Routine clopidogreL Yes [id number] 75mg 75 mg, Univers (PLAVIX) 12-01 Oral, ity of tablet 75 14:00: DAILY, [place] mg 00 First dose Medical on [facility] 12/01/20 at 0900, Until Discontinu ed, Routine
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 [place] chewable 12-01 Oral, ity of tablet 81 14:00: DAILY, [place] mg 00 First dose Medical on [facility] 12/01/20 at 0900, Until Discontinu ed, Routine heparin Yes 5000U 5,000 Univers (porcine) 12-01 Units, ity of injection 13:00: Subcutaneo [place] 5,000 Units 00 us, Q12H, Med ical First dose Branch on [facility] 12/01/20 at 0800, Until Discontinu ed, Routine gabapentin Yes 800mg 800 mg, Uni vers (NEURONTIN) 12-01 Oral, TID, it y of tablet 800 13:00: First dose [place] mg 00 on [facility] 12/01/20 at Branch 0800, Until Discontinu ed, Routine magnesium 2020- No 4g 4 g, IV [facility] sulfate in 12-01 07 Piggyback, it y of water 4 12:45: 14:07 ONCE, 1 [place] gram/50 mL 00 :00 dose, [facility] Medi blanquita (8 %) IV 12/01/20 at [place] Piggyback 4 0745, g Routine insulin NPH Yes 40U 40 Units, U nivers and regular 12-01 Subcutaneo it y of human 70-30 12:30: us, BIDAC, [place] (HUMULIN 00 First dose Medic al 70-30 U-100 on [facility] INSULIN) 12/01/20 at 100 unit/mL 0730, (70-30) Until injection Discontinu 40 Units ed, Routine NaCl 0.9% 2020- No 1000mL at [address] [facility] [place] (NS) IV 12-01 07-06 mL/hr, IV ity of infusion 05:00: 11:40 Infusion, [place] 1,000 mL 00 :32 CONTINUOUS Medic al , Starting Branch Mon12/01/20 at 0000, Until Mon12/01/20 at 0640, Routine&lt ;br>To be infused to keep line open
Sliding 2020- Yes Subcutaneo [facility] Scale - us, TID ity of Insulin - 02:00: MEALS+HS, [place] Lispro 00 First dose Medical (HumaLOG) + on Mon [place] [facility] 11/30/20 at Testing 2100, Until Discontinu ed, Routine mirtazapine Yes 15mg 15 mg, [facility] (REMERON) 12-01 Oral, QHS, ity of tablet 15 02:00: First dose [place] mg 00 on Mon [facility] 11/30/20 at Branch 2100, Until Discontinu ed, Routine glucagon Yes 1mg 1 mg, Univers (GLUCAGEN 12-01 Intramuscu ity of DIAGNOSTIC 01:33: lar, PRN, [place] KIT) 41 Starting Medical injection 1 Mon11/30/20 Br anch mg at 2032, Until Discontinu ed, TRANG, Blood Glucose < or = 70 mg/dL and patient is unable to swallow or has mental changes. dextrose 50 Yes 25mL 25 mL, Univ ers % in water 12-01 Slow IV ity of (D50W) 01:33: Push, PRN, [place] injection 41 Starting Medica l 25 mL 11/30/20 Branch at 2032, Until Discontinu ed, TRANG, Blood Glucose < or = 70 mg/dL and patient is unable to swallow or has mental status changes. aspirin 81 Yes 81mg Take 1 Unive rs mg chewable 12-01 tablet by ity of tablet 01:28: mouth [place] 04 daily. [facility] Branch acetaminoph Yes 650mg 650 mg, Un cali en 7-06 Oral, ity of (TYLENOL) 01:27: Q6HPRN, [place] tablet 650 42 Starting Medic al mg Mon11/30/20 Branch at 2027, Until Discontinu ed, Routine, Pain (scale 1-3) FENTanyl PF Yes Slow IV Uni vers (SUBLIMAZE 7-05 Push, PRN, ity of (PF)) 22:46: Starting [place] injection 07 Mon11/30/20 Medi blanquita at 1746, Branch Until Discontinu ed, Routine clopidogreL 2020- No Oral, Univ ers (PLAVIX) 11-3005 TITRATE - ity o f tablet 22:25: 22:25 FOR [place] 49 :49 PROCEDURE Medical USE, 1 Branch dose, Starting Mon11/30/20 at 1725, Until Mon11/30/20 at 1725, Routine FENTanyl PF 2020- No Slow IV Un cali (SUBLIMAZE 11-30 07-05 Push, ity of (PF)) 22:08: 22:08 TITRATE - [place] injection 10 :10 FOR Medical PROCEDURE Branch USE, 1 dose, Starting Mon11/30/20 at 1708, Until Mon11/30/20 at 1708, Routine heparin 2020- No Slow IV Univer s 1,000 11-30-05 Push, ity of unit/mL 21:55: 21:55 TITRATE - [place] injection 00 :00 FOR Medical PROCEDURE Branch USE, 1 dose, Starting Mon11/30/20 at 1655, Until Mon11/30/20 at 1655, Routine FENTanyl PF 2020- No Slow IV Un cali (SUBLIMAZE 11-30 07-05 Push, ity of (PF)) 21:50: 21:50 TITRATE - [place] injection 13 :13 FOR Medical PROCEDURE Branch USE, 1 dose, Starting Mon11/30/20 at 1650, Until Mon11/30/20 at 1650, Routine midazolam 2020- No IV Push, Uni vers (VERSED) 11-30 07-05 TITRATE - ity o f injection 21:50: 21:50 FOR [place] 07 :07 PROCEDURE Medical USE, 1 Branch dose, Starting Mon11/30/20 at 1650, Until Mon11/30/20 at 1650, Routine FENTanyl PF 2020- No Slow IV Un acli (SUBLIMAZE 11-30 Push, ity of (PF)) 21:17: 21:17 TITRATE - [place] injection 55 :55 FOR Medical PROCEDURE Branch USE, 1 dose, Starting Mon11/30/20 at 1617, Until Mon11/30/20 at 1617, Routine FENTanyl PF 2020- No Slow IV Un cali (SUBLIMAZE 11-30 Push, ity of (PF)) 20:53: 20:53 TITRATE - [place] injection 44 :44 FOR Medical PROCEDURE Branch USE, 1 dose, Starting Mon11/30/20 at 1553, Until Mon11/30/20 at 1553, Routine midazolam 2020- No IV Push, Uni vers (VERSED) 11-30 TITRATE - ity o f injection 20:53: 20:53 FOR [place] 37 :37 PROCEDURE Medical USE, 1 Branch dose, Starting Mon11/30/20 at 1553, Until Mon11/30/20 at 1553, Routine insulin 2020- No [id number] 10U 10 Units, Univers lispro 11-30 Subcutaneo ity of (human) 18:00: 18:15 us, ONCE, Nat s (HumaLOG 00 :00 1 dose, Medical U-100) Mon11/30/20 Branch injection at 1300, 10 Units Routine ezetimibe Yes [id number] 10mg Take 1 U nivers 10 mg 6-18 tablet by ity of tablet 00:00: mouth [place] 00 daily. Medical Branch furosemide Yes [id number] 1 tablet [facility] 20 mg 6-18 02 as needed ity of tablet 00:00: for leg [place] 00 swelling Medical Branch ezetimibe Yes [id number] 10mg Take 1 U nivers 10 mg 6-18 tablet by ity of tablet 00:00: mouth [place] 00 daily. Medical Branch furosemide Yes [id number] 1 tablet [facility] 20 mg 6-18 02 as needed ity of tablet 00:00: for leg [place] 00 swelling Medical Branch ezetimibe Yes [id number] 10mg Take 1 U nivers 10 mg 6-18 tablet by ity of tablet 00:00: mouth [place] 00 daily. Medical Branch furosemide 2021-0 Yes [id number] 1 tablet [facility] 20 mg 6-18 02 as needed ity of tablet 00:00: for leg swelling Medical Branch ezetimibe 1-0 Yes [id number] 10mg Take 1 U nivers 10 mg 6-18 tablet by ity of tablet 00:00: mouth [place] 00 daily. Medical Branch furosemide 1-0 Yes [id number] 1 tablet [facility] 20 mg 6-18 02 as needed ity of tablet 00:00: for leg swelling Medical Branch ezetimibe 1-0 Yes [id number] 10mg Take 1 U nivers 10 mg 6-18 tablet by ity of tablet 00:00: mouth [place] 00 daily. Medical Branch furosemide 1-0 Yes [id number] 1 tablet [facility] 20 mg 6-18 02 as needed ity of tablet 00:00: for leg swelling Medical Branch ezetimibe 1-0 Yes [id number] 10mg Take 1 U nivers 10 mg 6-18 tablet by ity of tablet 00:00: mouth [place] 00 daily. Medical Branch furosemide 1-0 Yes [id number] 1 tablet [facility] 20 mg 6-18 02 as needed ity of tablet 00:00: for leg swelling Medical Branch ezetimibe 1-0 Yes [id number] 10mg Take 1 U nivers 10 mg 6-18 tablet by ity of tablet 00:00: mouth [place] 00 daily. Medical Branch furosemide 1-0 Yes [id number] 1 tablet [facility] 20 mg 6-18 02 as needed ity of tablet 00:00: for leg swelling Medical Branch ezetimibe 1-0 Yes [id number] 10mg Take 1 U nivers 10 mg 6-18 tablet by ity of tablet 00:00: mouth [place] 00 daily. Medical Branch furosemide 2021-0 Yes [id number] 1 tablet [facility] 20 mg 6-18 02 as needed ity of tablet 00:00: for leg swelling Medical Branch ezetimibe 2021-0 Yes [id number] 10mg Take 1 U nivers 10 mg 6-18 tablet by ity of tablet 00:00: mouth [place] 00 daily. Medical Branch furosemide 2021-0 Yes [id number] 1 tablet [facility] 20 mg 6-18 02 as needed ity of tablet 00:00: for leg [place] swelling Medical Branch ezetimibe 2021-0 Yes [id number] 10mg Take 1 U nivers 10 mg 6-18 tablet by ity of tablet 00:00: mouth [place] 00 daily. Medical Branch furosemide 2021-0 Yes [id number] 1 tablet [facility] 20 mg 6-18 02 as needed ity of tablet 00:00: for leg [place] swelling Medical Branch ezetimibe 1-0 Yes [id number] 10mg Take 1 U nivers 10 mg 6-18 tablet by ity of tablet 00:00: mouth [place] 00 daily. Medical Branch furosemide 1-0 Yes [id number] 1 tablet [facility] 20 mg 6-18 02 as needed ity of tablet 00:00: for leg swelling Medical Branch ezetimibe 1-0 Yes [id number] 10mg Take 1 U nivers 10 mg 6-18 tablet by ity of tablet 00:00: mouth [place] 00 daily. Medical Branch furosemide 1-0 Yes [id number] 1 tablet [facility] 20 mg 6-18 02 as needed ity of tablet 00:00: for leg swelling Medical Branch ezetimibe 1-0 Yes [id number] 10mg Take 1 U nivers 10 mg 6-18 tablet by ity of tablet 00:00: mouth [place] 00 daily. Medical Branch furosemide 1-0 Yes [id number] 1 tablet [facility] 20 mg 6-18 02 as needed ity of tablet 00:00: for leg swelling Medical Branch ezetimibe 1-0 Yes [id number] 10mg Take 1 U nivers 10 mg 6-18 tablet by ity of tablet 00:00: mouth [place] 00 daily. Medical Branch furosemide 2021-0 Yes [id number] 1 tablet [facility] 20 mg 6-18 02 as needed ity of tablet 00:00: for leg [place] swelling Medical Branch ezetimibe 2021-0 Yes [id number] 10mg Take 1 U nivers 10 mg 6-18 tablet by ity of tablet 00:00: mouth [place] 00 daily. Medical Branch furosemide 2021-0 Yes [id number] 1 tablet [facility] 20 mg 6-18 02 as needed ity of tablet 00:00: for leg [place] swelling Medical Branch ezetimibe 2020-0 Yes [id number] 10mg Take 1 U nivers 10 mg 6-18 tablet by ity of tablet 00:00: mouth [place] 00 daily. Medical Branch furosemide 2020-0 Yes [id number] 1 tablet [facility] 20 mg 6-18 02 as needed ity of tablet 00:00: for leg [place] swelling Medical Branch ezetimibe 2020-0 Yes [id number] 10mg Take 1 U nivers 10 mg 6-18 tablet by ity of tablet 00:00: mouth [place] 00 daily. Medical Branch furosemide 2020-0 Yes [id number] 1 tablet [facility] 20 mg 6-18 02 as needed ity of tablet 00:00: for leg swelling Medical Branch ezetimibe 2020-0 Yes [id number] 10mg Take 1 U nivers 10 mg 6-18 tablet by ity of tablet 00:00: mouth [place] 00 daily. Medical Branch furosemide 2020-0 Yes [id number] 1 tablet [facility] 20 mg 6-18 02 as needed ity of tablet 00:00: for leg swelling Medical Branch ezetimibe 2020-0 Yes [id number] 10mg Take 1 U nivers 10 mg 6-18 tablet by ity of tablet 00:00: mouth [place] 00 daily. Medical Branch furosemide 2020-0 Yes [id number] 1 tablet [facility] 20 mg 6-18 02 as needed ity of tablet 00:00: for leg [place] swelling Medical Branch insulin NPH 2020-0 Yes [id number] 40U inject Univers and regular 5-12 40-50 ity of human 70-30 00:00: Units [place] (NOVOLIN 00 under the Medica l 70/30 U-100 skin 2 Branch INSULIN) (two) 100 unit/mL times (70-30) daily injection before breakfast and dinner. FREESTYLE 2020-0 Yes [id number] 1{kit} 1 Kit Univers RASHARD 2 5-12 every 14 ity of SENSOR Kit 00:00: (fourteen) [place] 00 days. Medical Branch insulin NPH 2020-0 Yes [id number] 40U inject Univers and regular 5-12 40-50 ity of human 70-30 00:00: Units (NOVOLIN 00 under the Medica l 70/30 U-100 skin 2 Branch INSULIN) (two) 100 unit/mL times (70-30) daily injection before breakfast and dinner. FREESTYLE Yes [id number] 1{kit} 1 Kit Univers RASHARD 2 5-12 every 14 ity of SENSOR Kit 00:00: (fourteen) [place] days. Medical Branch insulin NPH Yes [id number] 40U inject Univers and regular 5-12 40-50 ity of human 70-30 00:00: Units [place] (NOVOLIN 00 under the Medica l 70/30 U-100 skin 2 Branch INSULIN) (two) 100 unit/mL times (70-30) daily injection before breakfast and dinner. FREESTYLE Yes [id number] 1{kit} 1 Kit Univers RASHARD 2 5-12 every 14 ity of SENSOR Kit 00:00: (fourteen) [place] days. Medical Branch insulin NPH Yes [id number] 40U inject Univers and regular 5-12 40-50 ity of human 70-30 00:00: Units [place] (NOVOLIN 00 under the Medica l 70/30 U-100 skin 2 Branch INSULIN) (two) 100 unit/mL times (70-30) daily injection before breakfast and dinner. insulin NPH Yes [id number] 40U inject Univers and regular 5-12 40-50 ity of human 70-30 00:00: Units [place] (NOVOLIN 00 under the Medica l 70/30 U-100 skin 2 Branch INSULIN) (two) 100 unit/mL times (70-30) daily injection before breakfast and dinner. insulin NPH 0 Yes [id number] 40U inject Univers and regular 5-12 40-50 ity of human 70-30 00:00: Units [place] (NOVOLIN 00 under the Medica l 70/30 U-100 skin 2 Branch INSULIN) (two) 100 unit/mL times (70-30) daily injection before breakfast and dinner. insulin NPH 0 Yes [id number] 40U inject Univers and regular 5-12 40-50 ity of human 70-30 00:00: Units [place] (NOVOLIN 00 under the Medica l 70/30 U-100 skin 2 Branch INSULIN) (two) 100 unit/mL times (70-30) daily injection before breakfast and dinner. insulin NPH 2020-0 Yes [id number] 40U inject Univers and regular 5-12 40-50 ity of human 70-30 00:00: Units [place] (NOVOLIN 00 under the Medica l 70/30 U-100 skin 2 Branch INSULIN) (two) 100 unit/mL times (70-30) daily injection before breakfast and dinner. insulin NPH 2020-0 Yes [id number] 40U inject Univers and regular 5-12 40-50 ity of human 70-30 00:00: Units [place] (NOVOLIN 00 under the Medica l 70/30 U-100 skin 2 Branch INSULIN) (two) 100 unit/mL times (70-30) daily injection before breakfast and dinner. insulin NPH 2020-0 Yes [id number] 40U inject Univers and regular 5-12 40-50 ity of human 70-30 00:00: Units [place] (NOVOLIN 00 under the Medica l 70/30 U-100 skin 2 Branch INSULIN) (two) 100 unit/mL times (70-30) daily injection before breakfast and dinner. insulin NPH 0 Yes [id number] 40U inject Univers and regular 5-12 40-50 ity of human 70-30 00:00: Units [place] (NOVOLIN 00 under the Medica l 70/30 U-100 skin 2 Branch INSULIN) (two) 100 unit/mL times (70-30) daily injection before breakfast and dinner. insulin NPH 0 Yes [id number] 40U inject Univers and regular 5-12 40-50 ity of human 70-30 00:00: Units [place] (NOVOLIN 00 under the Medica l 70/30 U-100 skin 2 Branch INSULIN) (two) 100 unit/mL times (70-30) daily injection before breakfast and dinner. insulin NPH 2020-0 Yes [id number] 40U inject Univers and regular 5-12 40-50 ity of human 70-30 00:00: Units [place] (NOVOLIN 00 under the Medica l 70/30 U-100 skin 2 Branch INSULIN) (two) 100 unit/mL times (70-30) daily injection before breakfast and dinner. insulin NPH 2020-0 Yes [id number] 40U inject Univers and regular 5-12 40-50 ity of human 70-30 00:00: Units [place] (NOVOLIN 00 under the Medica l 70/30 U-100 skin 2 Branch INSULIN) (two) 100 unit/mL times (70-30) daily injection before breakfast and dinner. insulin NPH 0 Yes [id number] 40U inject Univers and regular 5-12 40-50 ity of human 70-30 00:00: Units [place] (NOVOLIN 00 under the Medica l 70/30 U-100 skin 2 Branch INSULIN) (two) 100 unit/mL times (70-30) daily injection before breakfast and dinner. insulin NPH 0 Yes [id number] 40U inject Univers and regular 5-12 40-50 ity of human 70-30 00:00: Units [place] (NOVOLIN 00 under the Medica l 70/30 U-100 skin 2 Branch INSULIN) (two) 100 unit/mL times (70-30) daily injection before breakfast and dinner. insulin NPH 0 Yes [id number] 40U inject Univers and regular 5-12 40-50 ity of human 70-30 00:00: Units [place] (NOVOLIN 00 under the Medica l 70/30 U-100 skin 2 Branch INSULIN) (two) 100 unit/mL times (70-30) daily injection before breakfast and dinner. insulin NPH 0 Yes [id number] 40U inject Univers and regular 5-12 40-50 ity of human 70-30 00:00: Units [place] (NOVOLIN 00 under the Medica l 70/30 U-100 skin 2 Branch INSULIN) (two) 100 unit/mL times (70-30) daily injection before breakfast and dinner. insulin NPH 0 Yes [id number] 40U inject Univers and regular 5-12 40-50 ity of human 70-30 00:00: Units [place] (NOVOLIN 00 under the Medica l 70/30 U-100 skin 2 Branch INSULIN) (two) 100 unit/mL times (70-30) daily injection before breakfast and dinner. insulin NPH 0 Yes [id number] 40U inject Univers and regular 5-12 40-50 ity of human 70-30 00:00: Units [place] (NOVOLIN 00 under the Medica l 70/30 U-100 skin 2 Branch INSULIN) (two) 100 unit/mL times (70-30) daily injection before breakfast and dinner. insulin NPH Yes [id number] 40U inject Univers and regular 5-12 40-50 ity of human 70-30 00:00: Units (NOVOLIN 00 under the Medica l 70/30 U-100 skin 2 Branch INSULIN) (two) 100 unit/mL times (70-30) daily injection before breakfast and dinner. insulin NPH Yes [id number] 40U inject Univers and regular 5-12 40-50 ity of human 70-30 00:00: Units (NOVOLIN 00 under the Medica l 70/30 U-100 skin 2 Branch INSULIN) (two) 100 unit/mL times (70-30) daily injection before breakfast and dinner. insulin NPH Yes [id number] 40U inject Univers and regular 5-12 40-50 ity of human 70-30 00:00: Units (NOVOLIN 00 under the Medica l 70/30 U-100 skin 2 Branch INSULIN) (two) 100 unit/mL times (70-30) daily injection before breakfast and dinner. FREESTYLE 2020- No [id number] 1{kit} 1 Kit [facility] RASHARD 2 10-07-18 every 14 ity of SENSOR Kit 00:00: 00:00 (fourteen) 00 :00 days. Medical Branch FREESTYLE 2020- No [id number] 1{kit} 1 Kit [facility] RASHARD 2 10-07-18 every 14 ity of SENSOR Kit 00:00: 00:00 (fourteen) [place] 00 :00 days. Medical Branch mirtazapine Yes [id number] 15mg Take 1 Univers 15 mg 5-06 tablet by ity of tablet 00:00: mouth at [place] [address] bedtime. Medical Branch atorvastati Yes [id number] 80mg Take 1 Univers n 80 mg 5-06 tablet by ity of tablet 00:00: mouth at [place] 00 bedtime. Medical Branch glipiZIDE Yes [id number] 5mg Take 0.5 Univers 10 mg 5-06 tablets by ity of tablet 00:00: mouth 2 00 (two) Medical times Branch daily before breakfast and dinner. mirtazapine Yes [id number] 15mg Take 1 [facility] 15 mg 5-06 tablet by ity of tablet 00:00: mouth at [place] 00 bedtime. Medical Branch atorvastati 0 Yes [id number] 80mg Take 1 Univers n 80 mg 5-06 tablet by ity of tablet 00:00: mouth at [place] 00 bedtime. Medical Branch glipiZIDE 0 Yes [id number] 5mg Take 0.5 Univers 10 mg 5-06 tablets by ity of tablet 00:00: mouth 2 [place] 00 (two) Medical times Branch daily before breakfast and dinner. mirtazapine 2020-0 Yes [id number] 15mg Take 1 [facility] 15 mg 5-06 tablet by ity of tablet 00:00: mouth at [place] 00 bedtime. Medical Branch atorvastati Yes [id number] 80mg Take 1 Univers n 80 mg 5-06 tablet by ity of tablet 00:00: mouth at [place] [address] bedtime. Medical Branch mirtazapine Yes [id number] 15mg Take 1 [facility] 15 mg 5-06 tablet by ity of tablet 00:00: mouth at [place] [address] bedtime. Medical Branch atorvastati 0 Yes [id number] 80mg Take 1 Univers n 80 mg 5-06 tablet by ity of tablet 00:00: mouth at [place] 00 bedtime. Medical Branch mirtazapine 0 Yes [id number] 15mg Take 1 [facility] 15 mg 5-06 tablet by ity of tablet 00:00: mouth at [place] [address] bedtime. Medical Branch atorvastati 0 Yes [id number] 80mg Take 1 [facility] n 80 mg 5-06 tablet by ity of tablet 00:00: mouth at [place] [address] bedtime. Medical Branch mirtazapine 2020-0 Yes [id number] 15mg Take 1 [facility] 15 mg 5-06 tablet by ity of tablet 00:00: mouth at [place] 00 bedtime. Medical Branch atorvastati 0 Yes [id number] 80mg Take 1 [facility] n 80 mg 5-06 tablet by ity of tablet 00:00: mouth at [place] 00 bedtime. Medical Branch mirtazapine Yes [id number] 15mg Take 1 [facility] 15 mg 5-06 tablet by ity of tablet 00:00: mouth at [place] 00 bedtime. Medical Branch atorvastati 2020-0 Yes [id number] 80mg Take 1 [facility] n 80 mg 5-06 tablet by ity of tablet 00:00: mouth at [place] 00 bedtime. Medical Branch mirtazapine 0 Yes [id number] 15mg Take 1 [facility] 15 mg 5-06 tablet by ity of tablet 00:00: mouth at [place] [address] bedtime. Medical Branch atorvastati 2020-0 Yes [id number] 80mg Take 1 [facility] n 80 mg 5-06 tablet by ity of tablet 00:00: mouth at [place] 00 bedtime. Medical Branch mirtazapine 0 Yes [id number] 15mg Take 1 [facility] 15 mg 5-06 tablet by ity of tablet 00:00: mouth at [place] [address] bedtime. Medical Branch atorvastati 0 Yes [id number] 80mg Take 1 [facility] n 80 mg 5-06 tablet by ity of tablet 00:00: mouth at [place] [address] bedtime. Medical Branch mirtazapine 0 Yes [id number] 15mg Take 1 [facility] 15 mg 5-06 tablet by ity of tablet 00:00: mouth at [place] [address] bedtime. Medical Branch atorvastati 0 Yes [id number] 80mg Take 1 [facility] n 80 mg 5-06 tablet by ity of tablet 00:00: mouth at [place] [address] bedtime. Medical Branch mirtazapine 0 Yes [id number] 15mg Take 1 [facility] 15 mg 5-06 tablet by ity of tablet 00:00: mouth at [place] [address] bedtime. Medical Branch atorvastati 0 Yes [id number] 80mg Take 1 [facility] n 80 mg 5-06 tablet by ity of tablet 00:00: mouth at [place] [address] bedtime. Medical Branch mirtazapine 0 Yes [id number] 15mg Take 1 [facility] 15 mg 5-06 tablet by ity of tablet 00:00: mouth at [place] [address] bedtime. Medical Branch atorvastati 0 Yes [id number] 80mg Take 1 [facility] n 80 mg 5-06 tablet by ity of tablet 00:00: mouth at [place] [address] bedtime. Medical Branch mirtazapine 0 Yes [id number] 15mg Take 1 [facility] 15 mg 5-06 tablet by ity of tablet 00:00: mouth at [place] 00 bedtime. Medical Branch atorvastati 0 Yes [id number] 80mg Take 1 [facility] n 80 mg 5-06 tablet by ity of tablet 00:00: mouth at [place] [address] bedtime. Medical Branch mirtazapine 2020-0 Yes [id number] 15mg Take 1 [facility] 15 mg 5-06 tablet by ity of tablet 00:00: mouth at [place] [address] bedtime. Medical Branch atorvastati 2020-0 Yes [id number] 80mg Take 1 [facility] n 80 mg 5-06 tablet by ity of tablet 00:00: mouth at [place] [address] bedtime. Medical Branch mirtazapine 0 Yes [id number] 15mg Take 1 [facility] 15 mg 5-06 tablet by ity of tablet 00:00: mouth at [place] [address] bedtime. Medical Branch atorvastati 0 Yes [id number] 80mg Take 1 [facility] n 80 mg 5-06 tablet by ity of tablet 00:00: mouth at [place] [address] bedtime. Medical Branch mirtazapine 2020-0 Yes [id number] 15mg Take 1 [facility] 15 mg 5-06 tablet by ity of tablet 00:00: mouth at [place] [address] bedtime. Medical Branch atorvastati 0 Yes [id number] 80mg Take 1 [facility] n 80 mg 5-06 tablet by ity of tablet 00:00: mouth at [place] [address] bedtime. Medical Branch mirtazapine 0 Yes [id number] 15mg Take 1 [facility] 15 mg 5-06 tablet by ity of tablet 00:00: mouth at [place] [address] bedtime. Medical Branch atorvastati 0 Yes [id number] 80mg Take 1 [facility] n 80 mg 5-06 tablet by ity of tablet 00:00: mouth at [place] [address] bedtime. Medical Branch mirtazapine 2020-0 Yes [id number] 15mg Take 1 [facility] 15 mg 5-06 tablet by ity of tablet 00:00: mouth at [place] [address] bedtime. Medical Branch atorvastati 0 Yes [id number] 80mg Take 1 [facility] n 80 mg 5-06 tablet by ity of tablet 00:00: mouth at [place] [address] bedtime. Medical Branch mirtazapine 2020-0 Yes [id number] 15mg Take 1 [facility] 15 mg 5-06 tablet by ity of tablet 00:00: mouth at [place] [address] bedtime. Medical Branch atorvastati 0 Yes [id number] 80mg Take 1 [facility] n 80 mg 5-06 tablet by ity of tablet 00:00: mouth at [place] 00 bedtime. [facility] mirtazapine 2020-0 Yes [id number] 15mg Take 1 [facility] 15 mg 5-06 tablet by [facility]y of tablet 00:00: mouth at [place] 00 bedtime. Medical Branch atorvastati 0 Yes [id number] 80mg Take 1 [facility] n 80 mg 5-06 tablet by ity of tablet 00:00: mouth at [place] 00 bedtime. Medical Branch mirtazapine Yes [id number] 15mg Take 1 [facility] 15 mg 5-06 tablet by [facility]y of tablet 00:00: mouth at [place] 00 bedtime. [facility] Branch atorvastati Yes [id number] 80mg Take 1 [facility] n 80 mg 5-06 tablet by ity of tablet 00:00: mouth at [place] [address] bedtime. Medical Branch mirtazapine Yes [id number] 15mg Take 1 [facility] 15 mg 5-06 tablet by ity of tablet 00:00: mouth at [place] [address] bedtime. Medical Branch mirtazapine 0 Yes [id number] 15mg Take 1 [facility] 15 mg 5-06 tablet by ity of tablet 00:00: mouth at [place] [address] bedtime. Medical Branch atorvastati Yes [id number] 80mg Take 1 [facility] n 80 mg 5-06 tablet by ity of tablet 00:00: mouth at [place] [address] bedtime. Medical Branch atorvastati 0 Yes [id number] 80mg Take 1 [facility] n 80 mg 5-06 tablet by ity of tablet 00:00: mouth at [place] [address] bedtime. Medical Branch mirtazapine 0 Yes [id number] 15mg Take 1 [facility] 15 mg 5-06 tablet by ity of tablet 00:00: mouth at [place] [address] bedtime. Medical Branch atorvastati 0 Yes [id number] 80mg Take 1 [facility] n 80 mg 5-06 tablet by ity of tablet 00:00: mouth at [place] 00 bedtime. Medical Branch mirtazapine 0 Yes [id number] 15mg Take 1 [facility] 15 mg 5-06 tablet by ity of tablet 00:00: mouth at [place] 00 bedtime. Medical Branch atorvastati Yes [id number] 80mg Take 1 [facility] n 80 mg 5-06 tablet by ity of tablet 00:00: mouth at [place] 00 bedtime. Medical Branch glipiZIDE Yes Type 2 5mg Take 0.5 [facility] 10 mg 5-06 diabetes tablets by [facility] of tablet 00:00: mellitus mouth 2 [place] 00 with (two) Medical hypoglycemi times [...] o f tablet 00:00: disease mouth at [place] 00 involving bedtime. Medica l [place] [facility] coronary artery of [place] heart without angina pectoris glipiZIDE Yes Type 2 5mg Take 0.5 [facility] [place] 10 mg 5-06 diabetes tablets by ity of tablet 00:00: mellitus mouth 2 [place] 00 with (two) Medical hypoglycemi times [...] [place] 00 involving bed[place]. [facility] [place] [facility] coronary artery of [place] heart without angina pectoris glipiZIDE 2020- No [id number] 5mg Take 0.5 [facility] 10 mg 5-06 05-12 tablets by ity of tablet 00:00: 00:00 mouth 2 [place] 00 :00 (two) Medical times Branch daily before breakfast and dinner. glipiZIDE 2020- No [id number] 5mg Take 0.5 [facility] 10 mg 5-06 05-12 tablets by ity of tablet 00:00: 00:00 mouth 2 [place] 00 :00 (two) Medical times Branch daily before breakfast and dinner. fluconazole 2020- No [id number] 150mg Take 1 [facility] 150 mg 4-14 -17 tablet by ity of tablet 00:00: 04:59 mouth [place] 00 :00 every 72 Medical (seventy-t Branch wo) hours for 2 days. fluconazole 2020- No [id number] 150mg Take 1 [facility] 150 mg 4-14 -17 tablet by ity of tablet 00:00: 04:59 mouth [place] 00 :00 every 72 Medical (seventy-t Branch wo) hours for 2 days. fluconazole 2020- No [id number] 150mg Take 1 [facility] 150 mg 4-14 -17 tablet by ity of tablet 00:00: 04:59 mouth [place] 00 :00 every 72 Medical (seventy-t Branch wo) hours for 2 days. insulin NPH Yes 60U 60 Units, U nivers and regular 4-13 Subcutaneo it y of human 70-30 12:30: , [facility], [place] (HUMULIN 00 First dose Medic al 70-30 U-100 (after Branch INSULIN) last 100 unit/mL modificati (70-30) on) on Tue injection 09/08/20 at 60 Units 0730, Until Discontinu ed, Routine ezetimibe 2020- No [id number] 10mg Take 1 [facility] 10 mg 4-13 -14 tablet by ity of tablet 00:00: 04:59 mouth [place] 00 :00 daily for Medical 30 days. Branch insulin NPH 2020- No [id number] 60U inject 60 [facility] and regular 4-13 05-14 Units ity of human 70-30 00:00: 04:59 under the [place] ([place]OV[place]IN 00 :00 skin 2 Medical 70/30 U-100 (two) Branch INSULIN) times 100 unit/mL daily (70-30) before injection breakfast and dinner for 30 days. ezetimibe 2020- No [id number] 10mg Take 1 [facility] 10 mg 4-13 -14 tablet by ity of tablet 00:00: 04:59 mouth [place] 00 :00 daily for Medical 30 days. Branch insulin NPH 2020- No [id number] 60U inject 60 [facility] and regular 4-13 05-14 Units ity of human 70-30 00:00: 04:59 under the [place] ([place] 00 :00 skin 2 Medical 70/30 U-100 (two) Branch INSULIN) times 100 unit/mL daily (70-30) before injection breakfast and dinner for 30 days. ezetimibe 2020- No [id number] 10mg Take 1 [facility] 10 mg 4-13 05-14 tablet by ity of tablet 00:00: 04:59 mouth [place] 00 :00 daily for Medical 30 days. Branch insulin NPH 2020- No [id number] 60U inject 60 [facility] and regular 4-13 05-14 Units ity of human 70-30 00:00: 04:59 under the [place] ([place] 00 :00 skin 2 Medical 70/30 U-100 (two) Branch INSULIN) times 100 unit/mL daily (70-30) before injection breakfast and dinner for 30 days. ezetimibe 2020- No [id number] 10mg Take 1 [facility] 10 mg 4-13 05-14 tablet by ity of tablet 00:00: 04:59 mouth [place] 00 :00 daily for Medical 30 days. Branch insulin NPH 2020- No [id number] 60U inject 60 [facility] and regular 4-13 05-14 Units ity of human 70-30 00:00: 04:59 under the [place] ([place] 00 :00 skin 2 Medical 70/30 U-100 (two) Branch INSULIN) times 100 unit/mL daily (70-30) before injection breakfast and dinner for 30 days. ezetimibe 2020- No [id number] 10mg Take 1 [facility] 10 mg 4-13 05-14 tablet by ity of tablet 00:00: 04:59 mouth [place] 00 :00 daily for Medical 30 days. Branch insulin NPH 2020- No [id number] 60U inject 60 [facility] and regular 4-13 05-14 Units ity of human 70-30 00:00: 04:59 under the [place] ([place] 00 :00 skin 2 Medical 70/30 U-100 (two) Branch INSULIN) times 100 unit/mL daily (70-30) before injection breakfast and dinner for 30 days. ezetimibe 2020- No [id number] 10mg Take 1 [facility] 10 mg 4-13 05-14 tablet by ity of tablet 00:00: 04:59 mouth [place] 00 :00 daily for Medical 30 days. Branch insulin NPH 2020- No [id number] 60U inject 60 [facility] and regular 4-13 05-14 Units ity of human 70-30 00:00: 04:59 under the [place] ([place] 00 :00 skin 2 Medical 70/30 U-100 (two) Branch INSULIN) times 100 unit/mL daily (70-30) before injection breakfast and dinner for 30 days. ezetimibe 2020- No [id number] 10mg Take 1 [facility] 10 mg 4-13 05-14 tablet by ity of tablet 00:00: 04:59 mouth [place] 00 :00 daily for Medical 30 days. Branch insulin NPH 2020- No [id number] 60U inject 60 [facility] and regular 4-13 05-14 Units ity of human 70-30 00:00: 04:59 under the [place] ([place] 00 :00 skin 2 Medical 70/30 U-100 (two) Branch INSULIN) times 100 unit/mL daily (70-30) before injection breakfast and dinner for 30 days. ezetimibe 2020- No [id number] 10mg Take 1 [facility] 10 mg 4-13 05-14 tablet by ity of tablet 00:00: 04:59 mouth [place] 00 :00 daily for Medical 30 days. Branch ezetimibe 2020- No [id number] 10mg Take 1 [facility] 10 mg 4-13 05-14 tablet by ity of tablet 00:00: 04:59 mouth [place] 00 :00 daily for Medical 30 days. Branch ezetimibe 2020- No Uncontrolle 10mg Take 1 [facility] 10 mg 4-13 05-14 d type 2 tablet by ity of tablet 00:00: 04:59 diabetes mouth [place] 00 :00 mellitus daily for Medica l with 30 days. Branch hyperglycem ia insulin NPH 2020- No Uncontrolle 60U inject 60 [facility] and regular 4-13 05-14 d type 2 Units it y of human 70-30 00:00: 04:59 diabetes under the [place] ([place]IN 00 :00 mellitus skin 2 Medic al 70/30 U-100 with (two) Branch INSULIN) hyperglycem times 100 unit/mL ia daily (70-30) before injection breakfast and dinner for 30 days. ezetimibe 2020- No Uncontrolle 10mg Take 1 [facility] 10 mg - 05-14 d type 2 tablet by ity of tablet 00:00: 04:59 diabetes mouth [place] 00 :00 mellitus daily for Medica l with 30 days. Branch hyperglycem ia insulin NPH 2020- No Uncontrolle 60U inject 60 [facility] and regular 4-13 05-14 d type 2 Units it y of human 70-30 00:00: 04:59 diabetes under the [place] ([place]OV[place] 00 :00 mellitus skin 2 Medic al 70/30 U-100 with (two) Branch INSULIN) hyperglycem times 100 unit/mL ia daily (70-30) before injection breakfast and dinner for 30 days. insulin NPH 2020- No [id number] 60U inject 60 [facility] and regular 4-13 05-12 Units ity of human 70-30 00:00: 00:00 under the [place] ([place] 00 :00 skin 2 Medical 70/30 U-100 (two) Branch INSULIN) times 100 unit/mL daily (70-30) before injection breakfast and dinner for 30 days. insulin NPH 2020- No [id number] 60U inject 60 [facility] and regular 4-13 05-12 Units ity of human 70-30 00:00: 00:00 under the [place] ([place] 00 :00 skin 2 Medical 70/30 U-100 (two) Branch INSULIN) times 100 unit/mL daily (70-30) before injection breakfast and dinner for 30 days. aspirin 81 Yes 81mg Take 1 Unive rs mg chewable 4-12 tablet by ity of tablet 23:21: mouth [place] 25 daily. [facility] Branch aspirin 81 2020-0 Yes 81mg Take 1 Unive rs mg chewable 4-12 tablet by ity of tablet 23:21: mouth [place] 25 daily. [facility] Branch aspirin 81 2020-0 Yes 81mg Take 1 Unive rs mg chewable 4-12 tablet by ity of tablet 23:21: mouth [place] 25 daily. [facility] aspirin 81 2020-0 Yes 81mg Take 1 Unive rs mg chewable 4-12 tablet by ity of tablet 23:21: mouth [place] 25 daily. Medical Branch aspirin 81 2020-0 Yes 81mg Take 1 Unive rs mg chewable 4-12 tablet by ity of tablet 23:21: mouth [place] 25 daily. Medical Branch aspirin 81 2020-0 Yes 81mg Take 1 Unive rs mg chewable 4-12 tablet by ity of tablet 23:21: mouth [place] 25 daily. Medical Branch aspirin 81 2020-0 Yes 81mg Take 1 Unive rs mg chewable 4-12 tablet by ity of tablet 23:21: mouth [place] 25 daily. Medical Branch aspirin 81 2020-0 Yes 81mg Take 1 Unive rs mg chewable 4-12 tablet by ity of tablet 23:21: mouth [place] 25 daily. Medical Branch aspirin 81 2020-0 Yes 81mg Take 1 Unive rs mg chewable 4-12 tablet by ity of tablet 23:21: mouth [place] 25 daily. Medical Branch aspirin 81 2020-0 Yes 81mg Take 1 [facility]ive rs mg chewable 4-12 tablet by ity of tablet 23:21: mouth [place] 25 daily. Medical Branch aspirin 81 2020-0 Yes 81mg Take 1 Unive rs mg chewable 4-12 tablet by ity of tablet 23:21: mouth [place] 25 daily. Medical Branch aspirin 81 2020-0 Yes 81mg Take 1 Unive rs mg chewable 4-12 tablet by ity of tablet 23:21: mouth [place] 25 daily. Medical Branch aspirin 81 2020-0 Yes 81mg Take 1 Unive rs mg chewable 4-12 tablet by ity of tablet 23:21: mouth [place] 25 daily. Medical Branch aspirin 81 2020-0 Yes 81mg Take 1 Unive rs mg chewable 4-12 tablet by ity of tablet 23:21: mouth [place] 25 daily. Medical Branch aspirin 81 2020-0 Yes 81mg Take 1 Unive rs mg chewable 4-12 tablet by ity of tablet 23:21: mouth [place] 25 daily. Medical Branch aspirin 81 2020-0 Yes 81mg Take 1 Unive rs mg chewable 4-12 tablet by ity of tablet 23:21: mouth [place] 25 daily. Medical Branch aspirin 81 2020-0 Yes 81mg Take 1 Unive rs mg chewable 4-12 tablet by ity of tablet 23:21: mouth [place] 25 daily. Medical Branch aspirin 81 2020- Yes 81mg Take 1 Unive rs mg chewable 4-12 tablet by ity of tablet 23:21: mouth [place] 25 daily. Medical Branch insulin NPH 2020- No [id number] 90U inject 90 Univers and regular 4-12 05-13 Units ity of human 70-30 00:00: 04:59 under the [place] ([place]IN 00 :00 skin 2 Medical 70/30 U-100 (two) Branch INSULIN) times 100 unit/mL daily (70-30) before injection breakfast and dinner for 30 days. metoprolol 2020- No [id number] 50mg Take 0.5 Univers succinate 4-12 05-13 tablets by ity of XL 100 mg 00:00: 04:59 mouth [place] 24 hr 00 :00 daily for Medical tablet 30 days. Branch glipiZIDE 2020- No [id number] 10mg Take 1 [facility] 10 mg 4-12 05-13 tablet by ity of tablet 00:00: 04:59 mouth 2 [place] 00 :00 (two) Medical times Branch daily before breakfast and dinner for 30 days. SITagliptin 2020- No [id number] 100mg Take 1 [facility] 100 mg 4-12 05-13 tablet by ity of tablet 00:00: 04:59 mouth with [place] 00 :00 evening Medical meal for Branch 30 days. insulin NPH 2020- No [id number] 90U inject 90 Univers and regular 4-12 05-13 Units ity of human 70-30 00:00: 04:59 under the [place] ([place]OV[place]IN 00 :00 skin 2 Medical 70/30 U-100 (two) Branch INSULIN) times 100 unit/mL daily (70-30) before injection breakfast and dinner for 30 days. metoprolol 2020- No [id number] 50mg Take 0.5 Univers succinate 4-12 05-13 tablets by ity of XL 100 mg 00:00: 04:59 mouth [place] 24 hr 00 :00 daily for Medical tablet 30 days. Branch glipiZIDE 2020- No [id number] 10mg Take 1 [facility] 10 mg 4-12 05-13 tablet by ity of tablet 00:00: 04:59 mouth 2 [place] 00 :00 (two) Medical times [place] daily before breakfast and dinner for 30 days. SITagliptin 2020- No [id number] 100mg Take 1 [facility] 100 mg 09-07-13 tablet by ity of tablet 00:00: 04:59 mouth with [place] 00 :00 evening Medical meal for Branch 30 days. insulin NPH 2020- No [id number] 90U inject 90 Univers and regular 4- 05-13 Units ity of human 70-30 00:00: 04:59 under the [place] ([place]IN 00 :00 skin 2 Medical 70/30 U-100 (two) Branch INSULIN) times 100 unit/mL daily (70-30) before injection breakfast and dinner for 30 days. metoprolol 2020- No [id number] 50mg Take 0.5 Univers succinate 09-07-13 tablets by ity of XL 100 mg 00:00: 04:59 mouth [place] 24 hr 00 :00 daily for Medical tablet 30 days. Branch glipiZIDE 2020- No [id number] 10mg Take 1 [facility] 10 mg 09-07- tablet by ity of tablet 00:00: 04:59 mouth 2 [place] 00 :00 (two) Medical times [place] daily before breakfast and dinner for 30 days. SITagliptin 2020- No [id number] 100mg Take 1 [facility] 100 mg 09-07- tablet by ity of tablet 00:00: 04:59 mouth with [place] 00 :00 evening Medical meal for Branch 30 days. insulin NPH 2020- No [id number] 90U inject 90 [facility] and regular - 05-13 Units ity of human 70-30 00:00: 04:59 under the [place] ([place]IN 00 :00 skin 2 Medical 70/30 U-100 (two) Branch INSULIN) times 100 unit/mL daily (70-30) before injection breakfast and dinner for 30 days. metoprolol 2020- No [id number] 50mg Take 0.5 [facility] succinate 09-07-13 tablets by ity of XL 100 mg 00:00: 04:59 mouth [place] 24 hr 00 :00 daily for Medical tablet 30 days. Branch glipiZIDE 2020- No [id number] 10mg Take 1 [facility] 10 mg 4-12 05-13 tablet by ity of tablet 00:00: 04:59 mouth 2 [place] 00 :00 (two) Medical times [place] daily before breakfast and dinner for 30 days. SITagliptin 2020- No [id number] 100mg Take 1 [facility] 100 mg 4-12 05-13 tablet by ity of tablet 00:00: 04:59 mouth with [place] 00 :00 evening Medical meal for Branch 30 days. insulin NPH 2020- No [id number] 90U inject 90 [facility] and regular 4-12 05-13 Units ity of human 70-30 00:00: 04:59 under the [place] ([place]OV[place]IN 00 :00 skin 2 Medical 70/30 U-100 (two) Branch INSULIN) times 100 unit/mL daily (70-30) before injection breakfast and dinner for 30 days. metoprolol 2020- No [id number] 50mg Take 0.5 [facility] succinate 4-12 05-13 tablets by ity of XL 100 mg 00:00: 04:59 mouth [place] 24 hr 00 :00 daily for Medical tablet 30 days. Branch glipiZIDE 2020- No [id number] 10mg Take 1 [facility] 10 mg 4-12 05-13 tablet by ity of tablet 00:00: 04:59 mouth 2 [place] 00 :00 (two) Medical times [place] daily before breakfast and dinner for 30 days. SITagliptin 2020- No [id number] 100mg Take 1 [facility] 100 mg 4-12 05-13 tablet by ity of tablet 00:00: 04:59 mouth with [place] 00 :00 evening Medical meal for Branch 30 days. metoprolol 2020- No [id number] 50mg Take 0.5 Univers succinate 4-12 05-13 tablets by ity of XL 100 mg 00:00: 04:59 mouth [place] 24 hr 00 :00 daily for Medical tablet 30 days. Branch SITagliptin 2020- No [id number] 100mg Take 1 [facility] 100 mg 4-12 05-13 tablet by ity of tablet 00:00: 04:59 mouth with [place] 00 :00 evening Medical meal for Branch 30 days. metoprolol 2020- No [id number] 50mg Take 0.5 [facility] succinate 09-07-13 tablets by ity of XL 100 mg 00:00: 04:59 mouth [place] 24 hr 00 :00 daily for Medical tablet 30 days. Branch SITagliptin 2020- No [id number] 100mg Take 1 [facility] 100 mg 09-07-13 tablet by ity of tablet 00:00: 04:59 mouth with [place] 00 :00 evening Medical meal for Branch 30 days. metoprolol 2020- No [id number] 50mg Take 0.5 [facility] succinate 09-07-13 tablets by ity of XL 100 mg 00:00: 04:59 mouth [place] 24 hr 00 :00 daily for Medical tablet 30 days. Branch metoprolol 2020- No [id number] 50mg Take 0.5 [facility] succinate 09-0713 tablets by ity of XL 100 mg 00:00: 04:59 mouth [place] 24 hr 00 :00 daily for Medical tablet 30 days. Branch metoprolol 2020- No Coronary 50mg Take 0.5 [facility] succinate 09-07- artery tablets by i ty of XL 100 mg 00:00: 04:59 disease mouth [place] 24 hr 00 :00 involving daily for Medi [place] tablet [place] 30 days. Branch coronary artery of [place] heart without angina pectoris SITagliptin 2020- No Uncontrolle 100mg Take 1 [facility] 100 mg 09-07- d type 2 tablet by ity of tablet 00:00: 04:59 diabetes mouth with [place] 00 :00 mellitus evening Medical with meal for Branch hyperglycem 30 days. ia metoprolol 2020- No Coronary 50mg Take 0.5 [facility] succinate 09-07-13 artery tablets by i ty of XL 100 mg 00:00: 04:59 disease mouth [place] 24 hr 00 :00 involving daily for Medi [place] tablet [place] 30 days. Branch coronary artery of [place] heart without angina pectoris SITagliptin 2020- No Uncontrolle 100mg Take 1 [facility] 100 mg 09-07-13 d type 2 tablet by ity of tablet 00:00: 04:59 diabetes mouth with [place] 00 :00 mellitus evening Medical with meal for Branch hyperglycem 30 days. ia SITagliptin 2020- No [id number] 100mg Take 1 [facility] 100 mg 4-12 05-12 tablet by ity of tablet 00:00: 00:00 mouth with [place] 00 :00 evening Medical meal for Branch 30 days. SITagliptin 2020- No [id number] 100mg Take 1 [facility] 100 mg 4-12 05-12 tablet by ity of tablet 00:00: 00:00 mouth with [place] 00 :00 evening Medical meal for Branch 30 days. insulin NPH 2020- No [id number] 90U inject 90 [facility] and regular 4-12 05-06 Units ity of human 70-30 00:00: 00:00 under the [place] ([place]IN 00 :00 skin 2 Medical 70/30 U-100 (two) Branch INSULIN) times 100 unit/mL daily (70-30) before injection breakfast and dinner for 30 days. glipiZIDE 2020- No [id number] 10mg Take 1 [facility] 10 mg 4- 05-06 tablet by ity of tablet 00:00: 00:00 mouth 2 [place] 00 :00 (two) Medical times Branch daily before breakfast and dinner for 30 days. insulin NPH 2020- No [id number] 90U inject 90 [facility] and regular 4-12 05-06 Units ity of human 70-30 00:00: 00:00 under the [place] ([place]IN 00 :00 skin 2 Medical 70/30 U-100 (two) Branch INSULIN) times 100 unit/mL daily (70-30) before injection breakfast and dinner for 30 days. glipiZIDE 2020- No [id number] 10mg Take 1 [facility] 10 mg 4-12 05-06 tablet by ity of tablet 00:00: 00:00 mouth 2 [place] 00 :00 (two) Medical times Branch daily before breakfast and dinner for 30 days. insulin NPH 2020- No Uncontrolle 90U inject 90 Univers and regular 4-12 05-06 d type 2 Units it y of human 70-30 00:00: 00:00 diabetes under the [place] ([place]IN 00 :00 mellitus skin 2 Medic al 70/30 U-100 with (two) Branch INSULIN) hyperglycem times 100 unit/mL ia daily (70-30) before injection breakfast and dinner for 30 days. glipiZIDE No Uncontrolle 10mg Take 1 Univers 10 [...] human 70-30 00:00: 00:00 diabetes under the [place] ([place]IN 00 :00 mellitus skin 2 Medic al 70/30 U-100 with (two) Branch INSULIN) hyperglycem times 100 unit/mL ia daily (70-30) before injection breakfast and dinner for 30 days. glipiZIDE No Uncontrolle 10mg Take 1 [facility] 10 mg 09-07-06 d type 2 tablet by ity of tablet 00:00: 00:00 diabetes mouth 2 [place] 00 :00 mellitus (two) Medical with times Branch hyperglycem daily ia before breakfast and dinner for 30 days. lactobacill 2020- No [id number] 1{tbl} Take 1 [facility] us 09-07-23 tablet by ity of acidophilus 00:00: 04:59 mouth 2 [place] 25 million 00 :00 (two) Medical cell -100 times Branch mg captab daily for 10 days. lactobacill 2020- No [id number] 1{tbl} Take 1 [facility] us -05 01-23 tablet by ity of acidophilus 00:00: 04:59 mouth 2 [place] 25 million 00 :00 (two) Medical cell -100 times Branch mg captab daily for 10 days. lactobacill 2020- No [id number] 1{tbl} Take 1 [facility] us -05 01-23 tablet by ity of acidophilus 00:00: 04:59 mouth 2 [place] 25 million 00 :00 (two) Medical cell -100 times Branch mg captab daily for 10 days. metroNIDAZO 2020- No [id number] 500mg Take 1 Univers LE 500 mg 09-07 tablet by ity of tablet 00:00: 04:59 mouth 2 [place] 00 :00 (two) Medical times Branch daily for 6 days. ciprofloxac 2020- No [id number] 750mg Take 1 [facility] in HCl 750 09-07 tablet by ity of mg tablet 00:00: 04:59 mouth [place] 00 :00 every 12 Medical (twelve) Branch hours for 6 days. metroNIDAZO 2020- No [id number] 500mg Take 1 [facility] LE 500 mg 09-07 tablet by ity of tablet 00:00: 04:59 mouth 2 [place] 00 :00 (two) Medical times Branch daily for 6 days. ciprofloxac 2020- No [id number] 750mg Take 1 [facility] in HCl 750 09-07 tablet by ity of mg tablet 00:00: 04:59 mouth [place] 00 :00 every 12 Medical (twelve) Branch hours for 6 days. metroNIDAZO 2020- No [id number] 500mg Take 1 [facility] LE 500 mg 09-07 tablet by ity of tablet 00:00: 04:59 mouth 2 [place] 00 :00 (two) Medical times Branch daily for 6 days. ciprofloxac 2020- No [id number] 750mg Take 1 [facility] in HCl 750 09-07 tablet by ity of mg tablet 00:00: 04:59 mouth [place] 00 :00 every 12 Medical (twelve) Branch hours for 6 days. cosyntropin 2020- No 250ug 250 mcg, Univers (CORTROSYN) 09-06 Slow IV ity of injection 22:45: 22:06 Push, [place] 250 mcg 00 :00 ONCE, 1 Medical dose, [place] Branch 09/06/20 at 1745, Routine metoprolol Yes 50mg 50 mg, Unive rs succinate - Oral, ity of XL (TOPROL 14:00: DAILY, [place] XL) tablet 00 First dose Med ical 50 mg (after Branch last modificati on) on 09/06/20 at 0900, Until Discontinu ed, Routine ezetimibe Yes 10mg 10 mg, Univer s (ZETIA) - Oral, ity of tablet 10 14:00: DAILY, [place] mg 00 First dose Medical on [place] [facility] 09/06/20 at 0900, Until Discontinu ed, Routine fluconazole Yes 150mg 150 mg, Un cali (DIFLUCAN) 09-06 Oral, ity of tablet 150 14:00: Q72H, [place] mg 00 First dose Medical on [place] Branch 09/06/20 at 0900, Until Discontinu ed, TRANG
Re ason for Anti-Infec tive: Empiric Therapy for Suspected Infection< br>Empiric Therapy Site: Pelvic<br& gt;Duratio n of therapy: 72 hours NaCl 0.9% 2020- No 500mL at 999 Univ ers (NS) bolus 09-06 mL/hr, 500 it y of infusion 06:15: 05:09 mL, IV [place] 500 mL 00 :00 Piggyback, Medical ONCE, 1 Branch dose, [place] 09/06/20 at 0115, STAT magnesium Yes 400mg 400 mg, Univ ers oxide 09-06 Oral, BID, ity of (MAG-OX 05:15: First dose [place] 400[place] tablet 00 on [place] Med[facility] l 400 mg 09/06/20 at Branch 0015, Until Discontinu ed, Routine magnesium 2020- No 4g 4 g, IV Univ ers sulfate in 09-06 Piggyback, it y of water 4 01:15: 01:12 ONCE, 1 [place] gram/50 mL 00 :00 dose, Sat Medi blanquita (8 %) IV 09/05/20 at [facility] h Piggyback 4 2015, g Routine KCL Yes 40meq 40 mEq, Univers (KLOR-CON 09-06 Oral, BID, ity of M20) tablet 01:00: First dose [place] 40 mEq 00 (after Medical last Branch modificati on) on 09/05/20 at 2000, Until Discontinu ed, Routine NaCl 0.9% 2020- No IV Univers (NS) 1000 09-06 Infusion, ity of mL + KCL 20 00:45: 16:58 at 125 [place] mEq 00 :02 mL/hr, Medical CONTINUOUS Branch , Starting 09/05/20 at 1945, Until 09/06/20 at 1158, Routine lactated 2020- No 1000mL at 999 Univ ers ringers IV 09-05 04-10 mL/hr, ity of infusion 23:30: 22:28 1,000 mL, [place] 1,000 mL 00 :00 Intravenou Medic al s, ONCE, 1 Branch dose, [facility] 09/05/20 at 1830, Routine isosorbide 2020- No 30mg 30 mg, Univ ers mononitrate 09-05-10 Oral, ity of (IMDUR) 24 17:00: 17:00 ONCE, 1 [place] hr tablet 00 :00 dose, [facility] Medic al 30 mg 09/05/20 at Branch 1200, Routine cefTRIAXone No 1000mg 1,000 mg, Univers (ROCEPHIN) 09-05-17 IV ity of 1,000 mg in 16:00: 15:59 Piggyback, [place] NaCl 0.9% 00 :00 Q12H ABX, Medic al (NS) 50 mL 14 doses, Bran ch MINI-BAG First dose (after last reorder) on [facility] 09/05/20 at 1100, Last dose on Mon09/11/20 at 2300, 50 mL
Reas on for Anti-Infec tive: Documented Infection< br>Documen anthony Infection Site: Urine
D uration of Therapy: Other (see Comments) enoxaparin Yes 40mg 40 mg, Unive rs (LOVENOX) 4-10 Subcutaneo ity of injection 14:00: us, DAILY, [place] 40 mg 00 First dose Medical on [facility] 09/05/20 at 0900, Until Discontinu ed, Routine pantoprazol Yes 40mg 40 mg, Univ ers e 4-10 Oral, ity of (PROTONIX) 14:00: DAILY, [place] EC tablet 00 First dose Medi blanquita 40 mg on [facility] Branch 09/05/20 at 0900, Until Discontinu ed, Routine clopidogreL Yes 75mg 75 mg, Univ ers (PLAVIX) 4-10 Oral, ity of tablet 75 14:00: DAILY, [place] mg 00 First dose Medical on [facility] 09/05/20 at 0900, Until Discontinu ed, Routine metoprolol 2020- No 100mg 100 mg, Un cali succinate 09-0511 Oral, ity of XL (TOPROL 14:00: 11:17 DAILY, [place] XL) tablet 00 :33 First dose Med ical 100 mg on Sat Branch 09/05/20 at 0900, Until Discontinu ed, Routine isosorbide 2020- No 30mg 30 mg, Univ ers mononitrate 09-05 Oral, ity of (IMDUR) 24 14:00: 15:58 DAILY, [place] hr tablet 00 :51 First dose Medi blanquita 30 mg on Sat Branch 09/05/20 at 0900, Until Discontinu ed, Routine furosemide 2020- No 20mg 20 mg, Univ ers (LASIX) 09-05 Oral, ity of tablet 20 14:00: 22:14 DAILY, [place] mg 00 :49 First dose Medical on [facility] Branch 09/05/20 at 0900, Until Discontinu ed, Routine docusate Yes 100mg 100 mg, Unive rs (COLACE) 4-10 Oral, BID, ity o f capsule 100 13:00: First dose [place] mg 00 on [facility] Medical 09/05/20 at Branch 0800, Until Discontinu ed, Routine metFORMIN Yes 1000mg 1,000 mg, U nivers (GLUCOPHAGE 4-10 Oral, BID ity of ) tablet 13:00: MEALS, [place] 1,000 mg 00 First dose Medic al on [facility] Branch 09/05/20 at 0800, Until Discontinu ed, Routine glipiZIDE Yes 10mg 10 mg, Univer s (GLUCOTROL) 4-10 Oral, ity of tablet 10 12:30: BIDAC, [place] mg 00 First dose Medical on [facility] Branch 09/05/20 at 0730, Until Discontinu ed, Routine insulin NPH 2020- No 90U 90 Units, Univers and regular 09-0512 Subcutaneo i ty of human 70-30 12:30: 21:48 us, BIDAC, [place] (HUMULIN 00 :25 First dose Medic al 70-30 U-100 (after Branch INSULIN) last 100 unit/mL modificati (70-30) on) on Sat injection 09/05/20 at 90 Units 0730, Until Discontinu ed, Routine NaCl 0.9% 2020- No IV Univers (NS) 1000 4 04-11 Infusion, ity of mL + KCL 20 10:30: 00:35 at 100 [place] mEq 00 :40 mL/hr, Medical CONTINUOUS Branch , Starting 09/05/20 at 0530, Until 09/05/20 at 1935, Routine fluconazole 2020-0 2020- No 200mg at 100 Un cali (DIFLUCAN) 4-10 04-10 mL/hr, IV ity of Piggyback 10:30: 11:16 Piggyback, [place] 200 mg 00 :00 ONCE, 1 Medical dose, Sat Branch 09/05/20 at 0530, TRANG NaCl 0.9% 2020- No 500mL at 999 Univ ers (NS) bolus 4- 04-10 mL/hr, 500 it y of infusion 10:30: 10:00 mL, IV [place] 500 mL 00 :00 Piggyback, Medical ONCE, 1 Branch dose, 09/05/20 at 0530, TRANG SITagliptin Yes 100mg 100 mg, Un cali (JANUVIA) 4-10 Oral, ity of tablet 100 09:45: DINNER, [place] mg 00 First dose Medical (after Branch last modificati on) on 09/05/20 at 0445, Until Discontinu ed, TRANG acetaminoph Yes 2{tbl} 2 tablet, Univers en-codeine 4-10 Oral, ity of (TYLENOL 09:31: TIDPRN, [place] #3) 300-30 12 Starting Medic al mg tablet 2 Sat Branch tablet 09/05/20 at 0431, Until Discontinu ed, Routine, Pain (scale 4-6) Sliding Yes Subcutaneo Univ ers Scale 4-10 us, TID ity of Insulin - 09:30: MEALS+HS, [place] Lispro 00 First dose Medical (HumaLOG) + on Sat Branch Fsbg 09/05/20 at Testing 0430, Until Discontinu ed, Routine gabapentin 0 Yes 800mg 800 mg, Uni vers (NEURONTIN) 4-10 Oral, TID, it y of tablet 800 09:30: First dose [place] mg 00 on [facility] Medical 09/05/20 at Branch 0430, Until Discontinu ed, Routine atorvastati Yes 80mg 80 mg, Univ ers n (LIPITOR) 4-10 Oral, QHS, it y of tablet 80 09:30: First dose [place] mg 00 on [facility] Medical 09/05/20 at Branch 0430, Until Discontinu ed, Routine aspirin Yes 81mg 81 mg, Univers chewable 4-10 Oral, QAM ity of tablet 81 09:30: WITH [place] mg 00 BREAKFAST, Medical First dose Branch on 09/05/20 at 0430, Until Discontinu ed, Routine lactobacill Yes 1{tbl} 1 tablet, Univers us 4-10 Oral, BID, ity of acidophilus 09:30: First dose [place] (ACIDOPHILL 00 on Sat Medica l US) 25 09/05/20 at Branch million 0430, cell -100 Until mg captab 1 Discontinu tablet ed, Routine metroNIDAZO 2020- No 500mg 500 mg, U vern HULL (FLAGYL) 4-10 04-17 Oral, BID, i ty of tablet 500 09:30: 00:59 14 doses, [place] mg 00 :00 First dose Medical on Sat Branch 09/05/20 at 0430, Last dose on Mon09/11/20 at 0800, Routine
Reason for Anti-Infec tive: Empiric Therapy for Suspected Infection< br>Empiric Therapy Site: Pelvic
Duration of therapy: 7 days KCL 2020-2020- No 20meq 20 mEq, Univers (KLOR-CON 4-10 04-11 Oral, ity of M20) tablet 09:30: 00:06 DAILY, [place] 20 mEq 00 :22 First dose Medical on Sat Branch 09/05/20 at 0430, Until Discontinu ed, Routine ondansetron Yes 4mg 4 mg, Slow Univers (ZOFRAN 4-10 IV Push, ity of (PF)) 09:29: Q6HPRN, [place] injection 4 42 Starting Medi blanquita mg Sat Branch 09/05/20 at 0429, Until Discontinu ed, Routine, Nausea and Vomiting (N/V) glucagon Yes 1mg 1 mg, Univers (GLUCAGEN 4-10 Intramuscu ity of DIAGNOSTIC 09:28: lar, PRN, [place] KIT) 38 Starting Medical injection 1 Sat Branch mg 09/05/20 at 0428, Until Discontinu ed, TRANG, Blood Glucose < or = 70 mg/dL and patient is unable to swallow or has mental changes. dextrose 50 Yes 25mL 25 mL, Univ ers % in water 4-10 Slow IV ity of (D50W) 09:28: Push, PRN, [place] injection 38 Starting Medica l 25 mL Sat Branch 09/05/20 at 0428, Until Discontinu ed, TRANG, Blood Glucose < or = 70 mg/dL and patient is unable to swallow or has mental status changes. cefTRIAXone 2020- No 1000mg 1,000 mg, Univers (ROCEPHIN) 09-05 04-10 IV ity of 1,000 mg in 05:15: 04:49 Piggyback, [place] NaCl 0.9% 00 :00 ONCE, 1 Medical (NS) 50 mL dose, Sat Bran ch MINI-BAG 09/05/20 at 0015, 50 mL
Reas on for Anti-Infec tive: Documented Infection< br>Documen anthony Infection Site: Urine
D uration of Therapy: Other (see Comments) insulin 2020- No 18U 18 Units, Univ ers regular 09-05 04-10 Subcutaneo ity o f human 04:30: 03:27 , ONCE, [place] (HUMULIN R) 00 :00 1 dose, Medic al injection 09/04/20 Bran ch 18 Units at 2330, Routine atorvastati Yes [id number] 80mg Take 1 Univers n 80 mg 3-10 tablet by ity of tablet 00:00: mouth at [place] [address] bedtime. Medical Branch atorvastati Yes [id number] 80mg Take 1 Univers n 80 mg 3-10 tablet by ity of tablet 00:00: mouth at [place] 00 bedtime. Medical Branch atorvastati Yes [id number] 80mg Take 1 Univers n 80 mg 3-10 tablet by ity of tablet 00:00: mouth at [place] [address] bedtime. Medical Branch atorvastati 2021-0 Yes [id number] 80mg Take 1 [facility] n 80 mg 3-10 tablet by ity of tablet 00:00: mouth at [place] 00 bedtime. Medical Branch atorvastati 2020-0 Yes [id number] 80mg Take 1 [facility] n 80 mg 3-10 tablet by ity of tablet 00:00: mouth at [place] 00 bedtime. Medical Branch atorvastati 2020-0 2021- No [id number] 80mg Take 1 Univers n 80 mg 3-10 04-12 tablet by ity of tablet 00:00: 00:00 mouth at [place] 00 :00 bedtime. Medical Branch METFORMIN 2020-0 Yes TAKE 2 Univer s 500 mg 3-09 TABLETS BY ity of tablet 00:00: MOUTH [place] 00 TWICE Medical DAILY WITH Branch MEALS METFORMIN 2020-0 Yes TAKE 2 Univer s 500 mg 3-09 TABLETS BY ity of tablet 00:00: MOUTH [place] 00 TWICE Medical DAILY WITH Branch MEALS METFORMIN 2020-0 Yes TAKE 2 Univer s 500 mg 3-09 TABLETS BY ity of tablet 00:00: MOUTH [place] 00 TWICE Medical DAILY WITH Branch MEALS METFORMIN 2020-0 Yes TAKE 2 Univer s 500 mg 3-09 TABLETS BY ity of tablet 00:00: MOUTH [place] 00 TWICE Medical DAILY WITH Branch MEALS METFORMIN 2020-0 Yes TAKE 2 Univer s 500 mg 3-09 TABLETS BY ity of tablet 00:00: MOUTH [place] 00 TWICE Medical DAILY WITH Branch MEALS METFORMIN 2020-0 Yes TAKE 2 Univer s 500 mg 3-09 TABLETS BY ity of tablet 00:00: MOUTH [place] 00 TWICE Medical DAILY WITH Branch MEALS METFORMIN 2020-0 Yes TAKE 2 Univer s 500 mg 3-09 TABLETS BY ity of tablet 00:00: MOUTH [place] 00 TWICE Medical DAILY WITH Branch MEALS METFORMIN 2020-0 Yes TAKE 2 Univer s 500 mg 3-09 TABLETS BY ity of tablet 00:00: MOUTH [place] 00 TWICE Medical DAILY WITH Branch MEALS METFORMIN 2020-0 Yes TAKE 2 Univer s 500 mg 3-09 TABLETS BY ity of tablet 00:00: MOUTH [place] 00 TWICE Medical DAILY WITH Branch MEALS METFORMIN 2020-0 Yes TAKE 2 Univer s 500 mg 3-09 TABLETS BY ity of tablet 00:00: MOUTH [place] 00 TWICE Medical DAILY WITH Branch MEALS METFORMIN 2020-0 Yes TAKE 2 Univer s 500 mg 3-09 TABLETS BY ity of tablet 00:00: MOUTH [place] 00 TWICE Medical DAILY WITH Branch MEALS METFORMIN 2021-0 Yes TAKE 2 Univer s 500 mg 3-09 TABLETS BY ity of tablet 00:00: MOUTH [place] 00 TWICE Medical DAILY WITH Branch MEALS METFORMIN 2021-0 Yes TAKE 2 Univer s 500 mg 3-09 TABLETS BY ity of tablet 00:00: MOUTH [place] 00 TWICE Medical DAILY WITH Branch MEALS METFORMIN 2021-0 Yes TAKE 2 Univer s 500 mg 3-09 TABLETS BY ity of tablet 00:00: MOUTH [place] 00 TWICE Medical DAILY WITH Branch MEALS METFORMIN 2021-0 Yes TAKE 2 Univer s 500 mg 3-09 TABLETS BY ity of tablet 00:00: MOUTH 00 TWICE Medical DAILY WITH Branch MEALS METFORMIN 2021-0 Yes TAKE 2 Univer s 500 mg 3-09 TABLETS BY ity of tablet 00:00: MOUTH [place] 00 TWICE Medical DAILY WITH Branch MEALS METFORMIN 2021-0 Yes TAKE 2 Univer s 500 mg 3-09 TABLETS BY ity of tablet 00:00: MOUTH 00 TWICE Medical DAILY WITH Branch MEALS METFORMIN 2021-0 Yes TAKE 2 Univer s 500 mg 3-09 TABLETS BY ity of tablet 00:00: MOUTH 00 TWICE Medical DAILY WITH Branch MEALS METFORMIN 2021-0 Yes TAKE 2 Univer s 500 mg 3-09 TABLETS BY ity of tablet 00:00: MOUTH 00 TWICE Medical DAILY WITH Branch MEALS METFORMIN 2021-0 Yes TAKE 2 Univer s 500 mg 3-09 TABLETS BY ity of tablet 00:00: MOUTH [place] 00 TWICE Medical DAILY WITH Branch MEALS METFORMIN 2021-0 Yes TAKE 2 Univer s 500 mg 3-09 TABLETS BY ity of tablet 00:00: MOUTH 00 TWICE Medical DAILY WITH Branch MEALS METFORMIN 2021-0 Yes TAKE 2 Univer s 500 mg 3-09 TABLETS BY ity of tablet 00:00: MOUTH [place] 00 TWICE Medical DAILY WITH Branch MEALS METFORMIN 2021-0 Yes TAKE 2 Univer s 500 mg 3-09 TABLETS BY ity of tablet 00:00: MOUTH 00 TWICE Medical DAILY WITH Branch MEALS METFORMIN 2021-0 Yes TAKE 2 Univer s 500 mg 3-09 TABLETS BY ity of tablet 00:00: MOUTH [place] 00 TWICE Medical DAILY WITH Branch MEALS METFORMIN 2021-0 Yes TAKE 2 Univer s 500 mg 3-09 TABLETS BY ity of tablet 00:00: MOUTH [place] 00 TWICE Medical DAILY WITH Branch MEALS METFORMIN 2021-0 Yes TAKE 2 Univer s 500 mg 3-09 TABLETS BY ity of tablet 00:00: MOUTH [place] 00 TWICE Medical DAILY WITH Branch MEALS METFORMIN 2021-0 Yes TAKE 2 Univer s 500 mg 3-09 TABLETS BY ity of tablet 00:00: MOUTH [place] 00 TWICE Medical DAILY WITH Branch MEALS METFORMIN 2021-0 Yes TAKE 2 Univer s 500 mg 3-09 TABLETS BY ity of tablet 00:00: MOUTH 00 TWICE Medical DAILY WITH Branch MEALS METFORMIN 2021-0 Yes TAKE 2 Univer s 500 mg 3-09 TABLETS BY ity of tablet 00:00: MOUTH 00 TWICE Medical DAILY WITH Branch MEALS METFORMIN 2021-0 Yes TAKE 2 Univer s 500 mg 3-09 TABLETS BY ity of tablet 00:00: MOUTH 00 TWICE Medical DAILY WITH Branch MEALS METFORMIN 2021-0 Yes TAKE 2 Univer s 500 mg 3-09 TABLETS BY ity of tablet 00:00: MOUTH 00 TWICE Medical DAILY WITH Branch MEALS METFORMIN 2021-0 Yes TAKE 2 Univer s 500 mg 3-09 TABLETS BY ity of tablet 00:00: MOUTH 00 TWICE Medical DAILY WITH Branch MEALS METFORMIN 2021-0 Yes TAKE 2 Univer s 500 mg 3-09 TABLETS BY ity of tablet 00:00: MOUTH 00 TWICE Medical DAILY WITH Branch MEALS METFORMIN 2021-0 Yes TAKE 2 Univer s 500 mg 3-09 TABLETS BY ity of tablet 00:00: MOUTH 00 TWICE Medical DAILY WITH Branch MEALS METFORMIN 2021-0 Yes TAKE 2 Univer s 500 mg 3-09 TABLETS BY ity of tablet 00:00: MOUTH 00 TWICE Medical DAILY WITH Branch MEALS METFORMIN 2021-0 Yes TAKE 2 Univer s 500 mg 3-09 TABLETS BY ity of tablet 00:00: MOUTH 00 TWICE Medical DAILY WITH Branch MEALS METFORMIN 2021-0 Yes TAKE 2 Univer s 500 mg 3-09 TABLETS BY ity of tablet 00:00: MOUTH 00 TWICE Medical DAILY WITH Branch MEALS METFORMIN 2021-0 Yes TAKE 2 Univer s 500 mg 3-09 TABLETS BY ity of tablet 00:00: MOUTH 00 TWICE Medical DAILY WITH Branch MEALS isosorbide 2021-0 Yes [id number] 30mg Take 1 [facility] mononitrate 1-11 tablet by ity of 30 mg 24 hr 00:00: mouth [place] tablet 00 daily. Medical Branch metoprolol 2021-0 Yes [id number] 100mg Take 1 [facility] succinate 1-11 tablet by ity o f XL 100 mg 00:00: mouth [place] 24 hr 00 daily. Medical tablet Branch pantoprazol Yes [id number] 40mg Take 1 Univers e 40 mg EC 1-11 tablet by ity of tablet 00:00: mouth [place] 00 daily. Medical Branch isosorbide 2020-0 Yes [id number] 30mg Take 1 [facility] mononitrate 1-11 tablet by ity of 30 mg 24 hr 00:00: mouth [place] tablet 00 daily. Medical Branch metoprolol Yes [id number] 100mg Take 1 [facility] succinate 1-11 tablet by ity o f XL 100 mg 00:00: mouth [place] 24 hr 00 daily. Medical tablet Branch pantoprazol Yes [id number] 40mg Take 1 Univers e 40 mg EC 1-11 tablet by ity of tablet 00:00: mouth [place] 00 daily. Medical Branch isosorbide Yes [id number] 30mg Take 1 [facility] mononitrate 1-11 tablet by ity of 30 mg 24 hr 00:00: mouth [place] tablet 00 daily. Medical Branch metoprolol Yes [id number] 100mg Take 1 [facility] succinate 1-11 tablet by ity o f XL 100 mg 00:00: mouth [place] 24 hr 00 daily. Medical tablet Branch pantoprazol Yes [id number] 40mg Take 1 Univers e 40 mg EC 1-11 tablet by ity of tablet 00:00: mouth [place] 00 daily. Medical Branch isosorbide Yes [id number] 30mg Take 1 [facility] mononitrate 1-11 tablet by ity of 30 mg 24 hr 00:00: mouth [place] tablet 00 daily. Medical Branch metoprolol Yes [id number] 100mg Take 1 [facility] succinate 1-11 tablet by ity o f XL 100 mg 00:00: mouth [place] 24 hr 00 daily. Medical tablet Branch pantoprazol Yes [id number] 40mg Take 1 Univers e 40 mg EC 1-11 tablet by ity of tablet 00:00: mouth [place] 00 daily. Medical Branch isosorbide 2020- Yes [id number] 30mg Take 1 [facility] mononitrate 1-11 tablet by ity of 30 mg 24 hr 00:00: mouth [place] tablet 00 daily. Medical Branch metoprolol 0 Yes [id number] 100mg Take 1 [facility] succinate 1-11 tablet by ity o f XL 100 mg 00:00: mouth [place] 24 hr 00 daily. Medical tablet Branch pantoprazol 0 Yes [id number] 40mg Take 1 Univers e 40 mg EC 1-11 tablet by ity of tablet 00:00: mouth [place] 00 daily. Medical Branch isosorbide 2020-0 Yes [id number] 30mg Take 1 [facility] mononitrate 1-11 tablet by ity of 30 mg 24 hr 00:00: mouth [place] tablet 00 daily. Medical Branch metoprolol 0 Yes [id number] 100mg Take 1 [facility] succinate 1-11 tablet by ity o f XL 100 mg 00:00: mouth [place] 24 hr 00 daily. Medical tablet Branch pantoprazol 0 Yes [id number] 40mg Take 1 Univers e 40 mg EC 1-11 tablet by ity of tablet 00:00: mouth [place] 00 daily. Medical Branch isosorbide 2020-0 Yes [id number] 30mg Take 1 [facility] mononitrate 1-11 tablet by ity of 30 mg 24 hr 00:00: mouth [place] tablet 00 daily. Medical Branch metoprolol 0 Yes [id number] 100mg Take 1 [facility] succinate 1-11 tablet by ity o f XL 100 mg 00:00: mouth [place] 24 hr 00 daily. Medical tablet Branch pantoprazol 0 Yes [id number] 40mg Take 1 Univers e 40 mg EC 1-11 tablet by ity of tablet 00:00: mouth [place] 00 daily. Medical Branch isosorbide 2020-0 Yes [id number] 30mg Take 1 [facility] mononitrate 1-11 tablet by ity of 30 mg 24 hr 00:00: mouth [place] tablet 00 daily. Medical Branch metoprolol 0 Yes [id number] 100mg Take 1 [facility] succinate 1-11 tablet by ity o f XL 100 mg 00:00: mouth [place] 24 hr 00 daily. Medical tablet Branch pantoprazol 0 Yes [id number] 40mg Take 1 Univers e 40 mg EC 1-11 tablet by ity of tablet 00:00: mouth [place] 00 daily. Medical Branch isosorbide 2020-0 Yes [id number] 30mg Take 1 [facility] mononitrate 1-11 tablet by ity of 30 mg 24 hr 00:00: mouth [place] tablet 00 daily. Medical Branch metoprolol 2020-0 Yes [id number] 100mg Take 1 [facility] succinate 1-11 tablet by ity o f XL 100 mg 00:00: mouth [place] 24 hr 00 daily. Medical tablet Branch pantoprazol 0 Yes [id number] 40mg Take 1 Univers e 40 mg EC 1-11 tablet by ity of tablet 00:00: mouth [place] 00 daily. Medical Branch isosorbide 2020-0 Yes [id number] 30mg Take 1 [facility] mononitrate 1-11 tablet by ity of 30 mg 24 hr 00:00: mouth [place] tablet 00 daily. Medical Branch metoprolol Yes [id number] 100mg Take 1 [facility] succinate 1-11 tablet by ity o f XL 100 mg 00:00: mouth [place] 24 hr 00 daily. Medical tablet Branch pantoprazol 0 Yes [id number] 40mg Take 1 Univers e 40 mg EC 1-11 tablet by ity of tablet 00:00: mouth [place] 00 daily. Medical Branch isosorbide 0 Yes [id number] 30mg Take 1 [facility] mononitrate 1-11 tablet by ity of 30 mg 24 hr 00:00: mouth [place] tablet 00 daily. Medical Branch metoprolol 0 Yes [id number] 100mg Take 1 [facility] succinate 1-11 tablet by ity o f XL 100 mg 00:00: mouth [place] 24 hr 00 daily. Medical tablet Branch pantoprazol 0 Yes [id number] 40mg Take 1 [facility] e 40 mg EC 1-11 tablet by ity of tablet 00:00: mouth [place] 00 daily. Medical Branch pantoprazol 0 Yes [id number] 40mg Take 1 [facility] e 40 mg EC 1-11 tablet by ity of tablet 00:00: mouth [place] 00 daily. Medical Branch pantoprazol 0 Yes [id number] 40mg Take 1 [facility] e 40 mg EC 1-11 tablet by ity of tablet 00:00: mouth [place] 00 daily. Medical Branch pantoprazol 0 Yes [id number] 40mg Take 1 [facility] e 40 mg EC 1-11 tablet by ity of tablet 00:00: mouth [place] 00 daily. Medical Branch pantoprazol Yes [id number] 40mg Take 1 Univers e 40 mg EC 1-11 tablet by ity of tablet 00:00: mouth [place] 00 daily. Medical Branch pantoprazol Yes [id number] 40mg Take 1 Univers e 40 mg EC 1-11 tablet by ity of tablet 00:00: mouth [place] 00 daily. Medical Branch pantoprazol Yes [id number] 40mg Take 1 Univers e 40 mg EC 1-11 tablet by ity of tablet 00:00: mouth [place] 00 daily. Medical Branch pantoprazol Yes [id number] 40mg Take 1 Univers e 40 mg EC 1-11 tablet by ity of tablet 00:00: mouth [place] 00 daily. Medical Branch pantoprazol Yes [id number] 40mg Take 1 Univers e 40 mg EC 1-11 tablet by ity of tablet 00:00: mouth [place] 00 daily. Medical Branch pantoprazol Yes [id number] 40mg Take 1 Univers e 40 mg EC 1-11 tablet by ity of tablet 00:00: mouth [place] 00 daily. Medical Branch pantoprazol Yes [id number] 40mg Take 1 Univers e 40 mg EC 1-11 tablet by ity of tablet 00:00: mouth [place] 00 daily. Medical Branch pantoprazol Yes [id number] 40mg Take 1 Univers e 40 mg EC 1-11 tablet by ity of tablet 00:00: mouth [place] 00 daily. Medical Branch pantoprazol Yes [id number] 40mg Take 1 Univers e 40 mg EC 1-11 tablet by ity of tablet 00:00: mouth [place] 00 daily. Medical Branch pantoprazol Yes [id number] 40mg Take 1 Univers e 40 mg EC 1-11 tablet by ity of tablet 00:00: mouth [place] 00 daily. Medical Branch pantoprazol Yes [id number] 40mg Take 1 Univers e 40 mg EC 1-11 tablet by ity of tablet 00:00: mouth [place] 00 daily. Medical Branch pantoprazol Yes [id number] 40mg Take 1 Univers e 40 mg EC 1-11 tablet by ity of tablet 00:00: mouth [place] 00 daily. Medical Branch pantoprazol 2021-0 Yes [id number] 40mg Take 1 Univers e 40 mg EC 1-11 tablet by ity of tablet 00:00: mouth [place] 00 daily. Medical Branch pantoprazol Yes [id number] 40mg Take 1 Univers e 40 mg EC 1-11 tablet by ity of tablet 00:00: mouth [place] 00 daily. Medical Branch pantoprazol Yes [id number] 40mg Take 1 Univers e 40 mg EC 1-11 tablet by ity of tablet 00:00: mouth [place] 00 daily. Medical Branch pantoprazol Yes [id number] 40mg Take 1 Univers e 40 mg EC 1-11 tablet by ity of tablet 00:00: mouth [place] 00 daily. Medical Branch pantoprazol Yes [id number] 40mg Take 1 Univers e 40 mg EC 1-11 tablet by ity of tablet 00:00: mouth [place] 00 daily. Medical Branch pantoprazol Yes [id number] 40mg Take 1 Univers e 40 mg EC 1-11 tablet by ity of tablet 00:00: mouth [place] 00 daily. Medical Branch pantoprazol Yes [id number] 40mg Take 1 Univers e 40 mg EC 1-11 tablet by ity of tablet 00:00: mouth [place] 00 daily. Medical Branch pantoprazol Yes [id number] 40mg Take 1 Univers e 40 mg EC 1-11 tablet by ity of tablet 00:00: mouth [place] 00 daily. Medical Branch pantoprazol Yes [id number] 40mg Take 1 Univers e 40 mg EC 1-11 tablet by ity of tablet 00:00: mouth [place] 00 daily. Medical Branch pantoprazol Yes [id number] 40mg Take 1 Univers e 40 mg EC 1-11 tablet by ity of tablet 00:00: mouth [place] 00 daily. Medical Branch pantoprazol Yes [id number] 40mg Take 1 Univers e 40 mg EC 1-11 tablet by ity of tablet 00:00: mouth [place] 00 daily. Medical Branch pantoprazol Yes [id number] 40mg Take 1 Univers e 40 mg EC 1-11 tablet by [facility] tablet 00:00: mouth [place] 00 daily. [facility] pantoprazol 0 Yes [id number] 40mg Take 1 [facility] 40 mg EC 1-11 tablet by it[facility] of tablet 00:00: mouth [place] 00 daily. Medical Branch pantoprazol Yes [id number] 40mg Take 1 [facility] e 40 mg EC 1-11 tablet by it[facility] of tablet 00:00: mouth [place] 00 daily. Medical [facility] pantoprazol Yes [id number] 40mg Take 1 [facility] e 40 mg EC 1-11 tablet by ity of tablet 00:00: mouth [place] 00 daily. Medical Branch pantoprazol Yes Gastroesoph 40mg Take 1 [facility] e 40 mg EC 1-11 ageal tablet by ity of tablet 00:00: reflux mouth [place] 00 disease daily. Medical Branch pantoprazol Yes Gastroesoph 40mg Take 1 [facility] e 40 mg EC 1-11 ageal tablet by ity of tablet 00:00: reflux mouth [place] 00 disease daily. Medical Branch isosorbide 2020- No [id number] 30mg Take 1 [facility] mononitrate 11 04-12 tablet by it y of 30 mg 24 hr 00:00: 00:[place] 00 :00 daily. [facility] metoprolol 2020- No [id number] 100mg Take 1 [facility] succinate - 04-12 tablet by ity of XL 100 mg 00:00: 00:00 mouth [place] 24 hr 00 :00 daily. Medical tablet Branch methocarbam Yes [id number] 500mg Take 1 [facility] oL 500 mg 1-08 tablet by ity o f tablet 00:00: mouth 4 [place] 00 (four) Medical times Branch daily as needed (muscle spasm). isosorbide Yes [id number] 30mg Take 1 [facility] mononitrate 1-08 tablet by ity of 30 mg 24 hr 00:00: mouth [place] tablet 00 daily. Medical Branch potassium Yes [id number] 10meq Take 1 [facility] n[facility] chloride 10 1-08 tablet by ity of mEq CR 00:00: mouth [place] tablet 00 daily. Medical Branch methocarbam Yes [id number] 500mg Take 1 [facility] oL 500 mg 1-08 tablet by ity o f tablet 00:00: mouth 4 [place] 00 (four) Medical times Branch daily as needed (muscle spasm). potassium Yes [id number] 10meq Take 1 U nivers chloride 10 1-08 tablet by ity of mEq CR 00:00: mouth [place] tablet 00 daily. [facility] Branch methocarbam Yes [id number] 500mg Take 1 [facility] oL 500 mg 1-08 tablet by ity o f tablet 00:00: mouth 4 [place] 00 (four) Medical times Branch daily as needed (muscle spasm). potassium Yes [id number] 10meq Take 1 U nivers chloride 10 1-08 tablet by ity of mEq CR 00:00: mouth [place] tablet 00 daily. [facility] Branch methocarbam Yes [id number] 500mg Take 1 [facility] oL 500 mg 1-08 tablet by ity o f tablet 00:00: mouth 4 [place] 00 (four) Medical times Branch daily as needed (muscle spasm). potassium Yes [id number] 10meq Take 1 [facility] nivers chloride 10 1-08 tablet by ity of mEq CR 00:00: mouth [place] tablet 00 daily. [facility] Branch methocarbam Yes [id number] 500mg Take 1 [facility] oL 500 mg 1-08 tablet by ity o f tablet 00:00: mouth 4 [place] 00 (four) Medical times Branch daily as needed (muscle spasm). potassium Yes [id number] 10meq Take 1 [facility] nivers chloride 10 1-08 tablet by ity of mEq CR 00:00: mouth [place] tablet 00 daily. [facility] Branch methocarbam Yes [id number] 500mg Take 1 [facility] oL 500 mg 1-08 tablet by ity o f tablet 00:00: mouth 4 [place] 00 (four) Medical times Branch daily as needed (muscle spasm). potassium Yes [id number] 10meq Take 1 [facility] nivers chloride 10 1-08 tablet by ity of mEq CR 00:00: mouth [place] tablet 00 daily. [facility] Branch methocarbam Yes [id number] 500mg Take 1 [facility] oL 500 mg 1-08 tablet by ity o f tablet 00:00: mouth 4 [place] 00 (four) Medical times Branch daily as needed (muscle spasm). potassium Yes [id number] 10meq Take 1 [facility] nivers chloride 10 1-08 tablet by ity of mEq CR 00:00: mouth [place] tablet 00 daily. [facility] Branch methocarbam Yes [id number] 500mg Take 1 [facility] oL 500 mg 1-08 tablet by ity o f tablet 00:00: mouth 4 [place] 00 (four) Medical times Branch daily as needed (muscle spasm). potassium Yes [id number] 10meq Take 1 [facility] nivers chloride 10 1-08 tablet by ity of mEq CR 00:00: mouth [place] tablet 00 daily. [facility] Branch methocarbam Yes [id number] 500mg Take 1 [facility] oL 500 mg 1-08 tablet by ity o f tablet 00:00: mouth 4 [place] 00 (four) Medical times Branch daily as needed (muscle spasm). potassium Yes [id number] 10meq Take 1 [facility] nivers chloride 10 1-08 tablet by ity of mEq CR 00:00: mouth [place] tablet 00 daily. [facility] potassium Yes [id number] 10meq Take 1 U nivers chloride 10 1-08 tablet by ity of mEq CR 00:00: mouth [place] tablet 00 daily. [facility] potassium Yes [id number] 10meq Take 1 U nivers chloride 10 1-08 tablet by ity of mEq CR 00:00: mouth [place] tablet 00 daily. [facility] Branch potassium Yes [id number] 10meq Take 1 [facility] nivers chloride 10 1-08 tablet by ity of mEq CR 00:00: mouth [place] tablet 00 daily. [facility] potassium 2020- No [id number] 10meq Take 1 [facility] chloride 10 1-08 04-12 tablet by it y of mEq CR 00:00: 00:00 mouth [place] tablet 00 :00 daily. [facility] Branch methocarbam 2020- No [id number] 500mg Take 1 [facility] oL 500 mg -08 -09 tablet by ity of tablet 00:00: 00:00 mouth 4 [place] 00 :00 (four) Medical times Branch daily as needed (muscle spasm). methocarbam 2020- No [id number] 500mg Take 1 [facility] oL 500 mg -08 04-09 tablet by ity of tablet 00:00: 00:00 mouth 4 [place] 00 :00 (four) Medical times Branch daily as needed (muscle spasm). isosorbide 2020- No [id number] 30mg Take 1 [facility] mononitrate 06-05 tablet by it y of 30 mg 24 hr 00:00: 00:00 mouth [place] tablet 00 :00 daily. Medical Branch gabapentin 2020-1 Yes [id number] 800mg Take 1 [facility] 800 mg 2-22 tablet by ity of tablet 00:00: mouth 3 (three) Medical times Branch daily. gabapentin 2020-1 Yes [id number] 800mg Take 1 [facility] 800 mg 2-22 tablet by ity of tablet 00:00: mouth 3 (three) Medical times Branch daily. gabapentin 2020-1 Yes [id number] 800mg Take 1 [facility] 800 mg 2-22 tablet by ity of tablet 00:00: mouth 3 (three) Medical times Branch daily. gabapentin 2020-1 Yes [id number] 800mg Take 1 [facility] 800 mg 2-22 tablet by ity of tablet 00:00: mouth 3 (three) Medical times Branch daily. gabapentin 2020-1 Yes [id number] 800mg Take 1 [facility] 800 mg 2-22 tablet by ity of tablet 00:00: mouth (three) Medical times Branch daily. gabapentin 2020-1 Yes [id number] 800mg Take 1 [facility] 800 mg 2-22 tablet by ity of tablet 00:00: mouth (three) Medical times Branch daily. gabapentin 2020-1 Yes [id number] 800mg Take 1 [facility] 800 mg 2-22 tablet by ity of tablet 00:00: mouth (three) Medical times Branch daily. gabapentin 2020-1 Yes [id number] 800mg Take 1 [facility] 800 mg 2-22 tablet by ity of tablet 00:00: mouth (three) Medical times Branch daily. gabapentin 2020-1 Yes [id number] 800mg Take 1 [facility] 800 mg 2-22 tablet by ity of tablet 00:00: mouth 3 (three) Medical times Branch daily. gabapentin 2020-1 Yes [id number] 800mg Take 1 [facility] 800 mg 2-22 tablet by ity of tablet 00:00: mouth 3 (three) Medical times Branch daily. gabapentin 2020-1 Yes [id number] 800mg Take 1 [facility] 800 mg 2-22 tablet by ity of tablet 00:00: mouth 3 (three) Medical times Branch daily. gabapentin 2020-1 Yes [id number] 800mg Take 1 [facility] 800 mg 2-22 tablet by ity of tablet 00:00: mouth 3 (three) Medical times Branch daily. gabapentin 2020-1 Yes [id number] 800mg Take 1 [facility] 800 mg 2-22 tablet by ity of tablet 00:00: mouth 3 (three) Medical times Branch daily. gabapentin 2020-1 Yes [id number] 800mg Take 1 [facility] 800 mg 2-22 tablet by ity of tablet 00:00: mouth 3 (three) Medical times Branch daily. gabapentin 2020-1 Yes [id number] 800mg Take 1 [facility] 800 mg 2-22 tablet by ity of tablet 00:00: mouth (three) Medical times Branch daily. gabapentin 2020-1 Yes [id number] 800mg Take 1 [facility] 800 mg 2-22 tablet by ity of tablet 00:00: mouth (three) Medical times Branch daily. gabapentin 2020-1 Yes [id number] 800mg Take 1 [facility] 800 mg 2-22 tablet by ity of tablet 00:00: mouth (three) Medical times Branch daily. gabapentin 2020-1 Yes [id number] 800mg Take 1 [facility] 800 mg 2-22 tablet by ity of tablet 00:00: mouth (three) Medical times Branch daily. gabapentin 2020-1 Yes [id number] 800mg Take 1 [facility] 800 mg 2-22 tablet by ity of tablet 00:00: mouth (three) Medical times Branch daily. gabapentin 2020-1 Yes [id number] 800mg Take 1 [facility] 800 mg 2-22 tablet by ity of tablet 00:00: mouth (three) Medical times Branch daily. gabapentin 2020-1 Yes [id number] 800mg Take 1 [facility] 800 mg 2-22 tablet by ity of tablet 00:00: mouth 3 (three) Medical times Branch daily. gabapentin 2020-1 Yes [id number] 800mg Take 1 [facility] 800 mg 2-22 tablet by ity of tablet 00:00: mouth 3 (three) Medical times Branch daily. gabapentin 2020-1 Yes [id number] 800mg Take 1 [facility] 800 mg 2-22 tablet by ity of tablet 00:00: mouth 3 (three) Medical times Branch daily. gabapentin 2020-1 Yes [id number] 800mg Take 1 [facility] 800 mg 2-22 tablet by ity of tablet 00:00: mouth 3 (three) Medical times Branch daily. gabapentin 2020- Yes [id number] 800mg Take 1 [facility] 800 mg 2-22 tablet by ity of tablet 00:00: mouth 3 (three) Medical times Branch daily. gabapentin 2020- Yes [id number] 800mg Take 1 [facility] 800 mg 2-22 tablet by ity of tablet 00:00: mouth 3 (three) Medical times Branch daily. gabapentin 2020- Yes [id number] 800mg Take 1 [facility] 800 mg 2-22 tablet by ity of tablet 00:00: mouth 3 (three) Medical times Branch daily. gabapentin 2020- Yes [id number] 800mg Take 1 [facility] 800 mg 2-22 tablet by ity of tablet 00:00: mouth 3 (three) Medical times Branch daily. gabapentin 2019- Yes [id number] 800mg Take 1 [facility] 800 mg 2-22 tablet by ity of tablet 00:00: mouth 3 [place] (three) Medical times Branch daily. gabapentin 2019- Yes [id number] 800mg Take 1 [facility] 800 mg 2-22 tablet by ity of tablet 00:00: mouth 3 (three) Medical times Branch daily. gabapentin 2019- Yes [id number] 800mg Take 1 [facility] 800 mg 2-22 tablet by ity of tablet 00:00: mouth 3 (three) Medical times Branch daily. gabapentin 2019- Yes Neuropathy 800mg Take 1 [facility] 800 mg 2-22 tablet by ity of tablet 00:00: mouth 3 [place] (three) Medical times Branch daily. gabapentin 2019- Yes Neuropathy 800mg Take 1 [facility] 800 mg 2-22 tablet by ity of tablet 00:00: mouth 3 (three) Medical times Branch daily. gabapentin 2019-2020- No [id number] 800mg Take 1 [facility] 800 mg 2-22 07-23 tablet by ity of tablet 00:00: 00:00 mouth 3 [place] 00 :00 (three) Medical times Branch daily. methocarbam 2019- Yes [id number] 500mg Take 1 [facility] oL 500 mg 2-11 tablet by ity o f tablet 00:00: mouth 4 00 (four) Medical times Branch daily as needed (muscle spasm). methocarbam 2019-1 Yes [id number] 500mg Take 1 [facility] oL 500 mg 2-11 tablet by ity o f tablet 00:00: mouth 4 (four) Medical times Branch daily as needed (muscle spasm). methocarbam 2019-05 Yes [id number] 500mg Take 1 [facility] oL 500 mg 2-11 tablet by ity o f tablet 00:00: mouth 4 (four) Medical times Branch daily as needed (muscle spasm). methocarbam 2019-05 Yes [id number] 500mg Take 1 [facility] oL 500 mg 2-11 tablet by ity o f tablet 00:00: mouth 4 (four) Medical times Branch daily as needed (muscle spasm). methocarbam 2019-05 Yes [id number] 500mg Take 1 [facility] oL 500 mg 2-11 tablet by ity o f tablet 00:00: mouth (four) Medical times Branch daily as needed (muscle spasm). methocarbam 2019-05 Yes [id number] 500mg Take 1 [facility] oL 500 mg 2-11 tablet by ity o f tablet 00:00: mouth (four) Medical times Branch daily as needed (muscle spasm). methocarbam 2019-05 Yes [id number] 500mg Take 1 [facility] oL 500 mg 2-11 tablet by ity o f tablet 00:00: mouth (four) Medical times Branch daily as needed (muscle spasm). methocarbam 2019-05- No [id number] 500mg Take 1 [facility] oL 500 mg 2-11 -08 tablet by ity of tablet 00:00: 00:00 mouth 4 [place] 00 :00 (four) Medical times Branch daily as needed (muscle spasm). PANTOPRAZOL 2019-05 Yes [id number] TAKE 1 [facility] E 40 mg EC 1-18 TABLET BY ity of tablet 00:00: MOUTH ONCE 00 DAILY DO Medical NOT CRUSH Branch OR CHEW FUROSEMIDE 2019-05 Yes [id number] Take 1 [facility] nivers 20 mg 1-18 tablet by ity of tablet 00:00: mouth once [place] 00 daily Medical Branch POTASSIUM 2019-05 Yes [id number] Take 1 [facility] CHLORIDE 10 1-18 tablet by ity of mEq CR 00:00: mouth once [place] tablet 00 daily Medical Branch PANTOPRAZOL 2019-05 Yes [id number] TAKE 1 [facility] E 40 mg EC 1-18 TABLET BY ity of tablet 00:00: MOUTH ONCE [place] 00 DAILY DO Medical NOT CRUSH Branch OR CHEW FUROSEMIDE 2020- Yes [id number] Take 1 [facility] nivers 20 mg 1-18 tablet by ity of tablet 00:00: mouth once [place] 00 daily Medical Branch POTASSIUM 2020-1 Yes [id number] Take 1 [facility] CHLORIDE 10 1-18 tablet by ity of mEq CR 00:00: mouth once [place] tablet 00 daily Medical Branch PANTOPRAZOL 2020- Yes [id number] TAKE 1 [facility] E 40 mg EC 1-18 TABLET BY ity of tablet 00:00: MOUTH ONCE [place] 00 DAILY DO Medical NOT CRUSH Branch OR CHEW FUROSEMIDE 2020- Yes [id number] Take 1 [facility] nivers 20 mg 1-18 tablet by ity of tablet 00:00: mouth once [place] 00 daily Medical Branch POTASSIUM 2020- Yes [id number] Take 1 [facility] CHLORIDE 10 1-18 tablet by ity of mEq CR 00:00: mouth once [place] tablet 00 daily Medical Branch PANTOPRAZOL 2020- Yes [id number] TAKE 1 [facility] E 40 mg EC 1-18 TABLET BY ity of tablet 00:00: MOUTH ONCE [place] 00 DAILY DO Medical NOT CRUSH Branch OR CHEW FUROSEMIDE 2020- Yes [id number] Take 1 [facility] nivers 20 mg 1-18 tablet by ity of tablet 00:00: mouth once [place] 00 daily Medical Branch POTASSIUM 2020-1 Yes [id number] Take 1 [facility] CHLORIDE 10 1-18 tablet by ity of mEq CR 00:00: mouth once [place] tablet 00 daily Medical Branch PANTOPRAZOL 2020- Yes [id number] TAKE 1 [facility] E 40 mg EC 1-18 TABLET BY ity of tablet 00:00: MOUTH ONCE [place] 00 DAILY DO Medical NOT CRUSH Branch OR CHEW FUROSEMIDE 2020- Yes [id number] Take 1 U nivers 20 mg 1-18 tablet by ity of tablet 00:00: mouth once [place] 00 daily Medical Branch POTASSIUM 2020-1 Yes [id number] Take 1 [facility] CHLORIDE 10 1-18 tablet by ity of mEq CR 00:00: mouth once [place] tablet 00 daily Medical Branch PANTOPRAZOL 2020- Yes [id number] TAKE 1 [facility] E 40 mg EC 1-18 TABLET BY ity of tablet 00:00: MOUTH ONCE [place] 00 DAILY DO Medical NOT CRUSH Branch OR CHEW FUROSEMIDE 2020- Yes [id number] Take 1 U nivers 20 mg 1-18 tablet by ity of tablet 00:00: mouth once [place] 00 daily Medical Branch POTASSIUM 2020-1 Yes [id number] Take 1 [facility] CHLORIDE 10 1-18 tablet by ity of mEq CR 00:00: mouth once [place] tablet 00 daily Medical Branch PANTOPRAZOL 2020- Yes [id number] TAKE 1 [facility] E 40 mg EC 1-18 TABLET BY ity of tablet 00:00: MOUTH ONCE [place] 00 DAILY DO Medical NOT CRUSH Branch OR CHEW FUROSEMIDE 2020- Yes [id number] Take 1 [facility] nivers 20 mg 1-18 tablet by ity of tablet 00:00: mouth once [place] 00 daily Medical Branch POTASSIUM 2020-1 Yes [id number] Take 1 [facility] CHLORIDE 10 1-18 tablet by ity of mEq CR 00:00: mouth once [place] tablet 00 daily Medical Branch PANTOPRAZOL 2020- Yes [id number] TAKE 1 [facility] E 40 mg EC 1-18 TABLET BY ity of tablet 00:00: MOUTH ONCE [place] 00 DAILY DO Medical NOT CRUSH Branch OR CHEW FUROSEMIDE 2020 Yes [id number] Take 1 U nivers 20 mg 1-18 tablet by ity of tablet 00:00: mouth once [place] 00 daily Medical Branch POTASSIUM 2020-1 Yes [id number] Take 1 [facility] CHLORIDE 10 1-18 tablet by ity of mEq CR 00:00: mouth once [place] tablet 00 daily Medical Branch PANTOPRAZOL 2020- Yes [id number] TAKE 1 [facility] E 40 mg EC 1-18 TABLET BY ity of tablet 00:00: MOUTH ONCE [place] 00 DAILY DO Medical NOT CRUSH Branch OR CHEW FUROSEMIDE 2020- Yes [id number] Take 1 [facility] nivers 20 mg 1-18 tablet by ity of tablet 00:00: mouth once [place] 00 daily Medical Branch FUROSEMIDE 2020-1 Yes [id number] Take 1 [facility] nivers 20 mg 1-18 tablet by ity of tablet 00:00: mouth once [place] 00 daily Medical Branch FUROSEMIDE 2020- Yes [id number] Take 1 [facility] nivers 20 mg 1-18 tablet by ity of tablet 00:00: mouth once daily Medical Branch FUROSEMIDE 2020- Yes [id number] Take 1 [facility] nivers 20 mg 1-18 tablet by ity of tablet 00:00: mouth once [place] 00 daily Medical Branch FUROSEMIDE 2020-1 Yes [id number] Take 1 [facility] nivers 20 mg 1-18 tablet by ity of tablet 00:00: mouth once daily Medical Branch FUROSEMIDE 2019-05 Yes [id number] Take 1 U nivers 20 mg 1-18 tablet by ity of tablet 00:00: mouth once [place] daily Medical Branch FUROSEMIDE 2019-05 Yes [id number] Take 1 [facility] nivers 20 mg 1-18 tablet by ity of tablet 00:00: mouth once [place] daily Medical Branch FUROSEMIDE 2019-05 Yes [id number] Take 1 [facility] nivers 20 mg 1-18 tablet by ity of tablet 00:00: mouth once [place] daily Medical Branch FUROSEMIDE 2019-05 Yes [id number] Take 1 [facility] nivers 20 mg 1-18 tablet by ity of tablet 00:00: mouth once [place] daily Medical Branch FUROSEMIDE 2019-05 Yes [id number] Take 1 [facility] nivers 20 mg 1-18 tablet by ity of tablet 00:00: mouth once [place] daily Medical Branch FUROSEMIDE 2019-05 Yes [id number] Take 1 [facility] nivers 20 mg 1-18 tablet by ity of tablet 00:00: mouth once [place] daily Medical Branch FUROSEMIDE 2019-05 Yes [id number] Take 1 [facility] nivers 20 mg 1-18 tablet by ity of tablet 00:00: mouth once [place] daily Medical Branch FUROSEMIDE 2019-05- No [id number] Take 1 [facility] 20 mg 1-18 04-12 tablet by [facility] of tablet 00:00: 00:00 mouth once [place] 00 :00 daily Medical Branch PANTOPRAZOL 2019-05- No [id number] TAKE 1 [facility] E 40 mg EC -18 06-08 TABLET BY ity of tablet 00:00: 00:00 MOUTH ONCE [place] 00 :00 DAILY DO Medical NOT CRUSH Branch OR CHEW POTASSIUM 2019-05- No [id number] Take 1 U nivers CHLORIDE 10 -18 08 tablet by it y of mEq CR 00:00: 00:00 mouth once [place] tablet 00 :00 daily Medical Branch gabapentin 2019-05 Yes [id number] 800mg Take 1 [facility] 800 mg 1-16 tablet by ity of tablet 00:00: mouth 3 [place] (three) Medical times Branch daily. gabapentin 2019-05 Yes [id number] 800mg Take 1 [facility] 800 mg 1-16 tablet by ity of tablet 00:00: mouth 3 [place] (three) Medical times Branch daily. gabapentin 2019-05 Yes [id number] 800mg Take 1 [facility] 800 mg 1-16 tablet by ity of tablet 00:00: mouth 3 [place] 00 (three) Medical times Branch daily. gabapentin 2020-1 Yes [id number] 800mg Take 1 [facility] 800 mg 1-16 tablet by ity of tablet 00:00: mouth 3 [place] 00 (three) Medical times Branch daily. gabapentin 2020-1 Yes [id number] 800mg Take 1 [facility] 800 mg 1-16 tablet by ity of tablet 00:00: mouth 3 [place] 00 (three) Medical times Branch daily. gabapentin 2020-1 Yes [id number] 800mg Take 1 [facility] 800 mg 1-16 tablet by ity of tablet 00:00: mouth 3 [place] 00 (three) Medical times Branch daily. gabapentin 2020-1 Yes [id number] 800mg Take 1 [facility] 800 mg 1-16 tablet by ity of tablet 00:00: mouth 3 [place] 00 (three) Medical times Branch daily. gabapentin 2019- Yes [id number] 800mg Take 1 [facility] 800 mg 1-16 tablet by ity of tablet 00:00: mouth 3 [place] 00 (three) Medical times Branch daily. gabapentin 2019-05 2020- No [id number] 800mg Take 1 [facility] 800 mg 1-16 12-22 tablet by ity of tablet 00:00: 00:00 mouth 3 [place] 00 :00 (three) Medical times Branch daily. Nitrofurant 2019- Yes [id number] 100mg Take 1 [facility] oin&Nit. 1-10 capsule by ity o f Macrocryst 00:00: mouth 2 [place] (MACROBID[place] 00 (two) Medical 100 mg times Branch capsule daily. Nitrofurant 2019- Yes [id number] 100mg Take 1 [facility] oin&Nit. 1-10 capsule by ity o f Macrocryst 00:00: mouth 2 [place] (MACROBID[place] 00 (two) Medical 100 mg times Branch capsule daily. Nitrofurant 2019- Yes [id number] 100mg Take 1 [facility] oin&Nit. 1-10 capsule by ity o f Macrocryst 00:00: mouth 2 [place] (MACROBID) 00 (two) Medical 100 mg times Branch capsule daily. Nitrofurant 2019- Yes [id number] 100mg Take 1 [facility] oin&Nit. 1-10 capsule by ity o f Macrocryst 00:00: mouth 2 [place] (MACROBID) 00 (two) Medical 100 mg times Branch capsule daily. Nitrofurant 2019-05 Yes [id number] 100mg Take 1 [facility] oin&Nit. 1-10 capsule by ity o f Macrocryst 00:00: mouth 2 [place] (MACROBID[place] 00 (two) Medical 100 mg times Branch capsule daily. Nitrofurant 2019-05 Yes [id number] 100mg Take 1 [facility] oin&Nit. 1-10 capsule by ity o f Macrocryst 00:00: mouth 2 [place] (MACROBID) 00 (two) Medical 100 mg times Branch capsule daily. Nitrofurant 2019-05 Yes [id number] 100mg Take 1 [facility] oin&Nit. 1-10 capsule by ity o f Macrocryst 00:00: mouth 2 [place] (MACROBID) 00 (two) Medical 100 mg times Branch capsule daily. Nitrofurant 2019-05 Yes [id number] 100mg Take 1 [facility] oin&Nit. 1-10 capsule by ity o f Macrocryst 00:00: mouth 2 [place] (MACROBID[place] 00 (two) Medical 100 mg times Branch capsule daily. Nitrofurant 2019-05 2020- No [id number] 100mg Take 1 [facility] oin&Nit. 1-10 12-19 capsule by ity of Macrocryst 00:00: 00:00 mouth 2 [place] (MACROBID) 00 :00 (two) Medical 100 mg times Branch capsule daily. Nitrofurant 2019-05 2020- No [id number] 100mg Take 1 [facility] oin&Nit. 1-10 12-19 capsule by ity of Macrocryst 00:00: 00:00 mouth 2 [place] (MACROBID) 00 :00 (two) Medical 100 mg times Branch capsule daily. sulfamethox 2019-05 2020- No 1{tbl} Take 1 U nivers azole-trime 1-10 11-18 tablet by it y of thoprim 00:00: 05:59 mouth 2 [place] (BACTRIM 00 :00 (two) Medical DS) 800-160 times Branch mg per daily for tablet 7 days. sulfamethox 2019-05 2020- No 1{tbl} Take 1 U nivers azole-trime 1-10 11-18 tablet by it y of thoprim 00:00: 05:59 mouth 2 [place] (BACTRIM 00 :00 (two) Medical DS) 800-160 times Branch mg per daily for tablet 7 days. sulfamethox 2019-05 2020- No 1{tbl} Take 1 U nivers azole-trime 1-10 11-18 tablet by it y of thoprim 00:00: 05:59 mouth 2 [place] (BACTRIM 00 :00 (two) Medical DS) 800-160 times Branch mg per daily for tablet 7 days. metroNIDAZO 2019-05 Yes [id number] 500mg Take 1 [facility] LE 500 mg 1-06 tablet by ity o f tablet 00:00: mouth [place] 00 every 12 Medical (twelve) Branch hours. clotrimazol 2019-05 Yes [id number] Apply to [facility] e-betametha 1-06 area(s) 2 ity of sone cream 00:00: (two) [place] 00 times Medical daily. Use Branch for 2 weeks on affected area metroNIDAZO 2019-05 Yes [id number] 500mg Take 1 [facility] LE 500 mg 1-06 tablet by ity o f tablet 00:00: mouth [place] 00 every 12 Medical (twelve) Branch hours. clotrimazol 2019-05 Yes [id number] Apply to [facility] e-betametha 1-06 area(s) 2 ity of sone cream 00:00: (two) [place] 00 times Medical daily. Use Branch for 2 weeks on affected area metroNIDAZO 2019-05 Yes [id number] 500mg Take 1 [facility] LE 500 mg 1-06 tablet by ity o f tablet 00:00: mouth [place] 00 every 12 Medical (twelve) Branch hours. clotrimazol 2019-05 Yes [id number] Apply to [facility] e-betametha 1-06 area(s) 2 ity of sone cream 00:00: (two) [place] 00 times Medical daily. Use Branch for 2 weeks on affected area metroNIDAZO 2019-05 Yes [id number] 500mg Take 1 [facility] LE 500 mg 1-06 tablet by ity o f tablet 00:00: mouth [place] 00 every 12 Medical (twelve) Branch hours. clotrimazol 2019- Yes [id number] Apply to [facility] e-betametha 1-06 area(s) 2 ity of sone cream 00:00: (two) [place] 00 times Medical daily. Use Branch for 2 weeks on affected area metroNIDAZO 2020- Yes [id number] 500mg Take 1 [facility] LE 500 mg 1-06 tablet by ity o f tablet 00:00: mouth [place] 00 every 12 Medical (twelve) Branch hours. clotrimazol 2020- Yes [id number] Apply to [facility] e-betametha 1-06 area(s) 2 ity of sone cream 00:00: (two) [place] 00 times Medical daily. Use Branch for 2 weeks on affected area metroNIDAZO 2020- Yes [id number] 500mg Take 1 [facility] LE 500 mg 1-06 tablet by ity o f tablet 00:00: mouth [place] 00 every 12 Medical (twelve) Branch hours. clotrimazol 2020- Yes [id number] Apply to [facility] e-betametha 1-06 area(s) 2 ity of sone cream 00:00: (two) [place] 00 times Medical daily. Use Branch for 2 weeks on affected area metroNIDAZO 2020 Yes [id number] 500mg Take 1 [facility] LE 500 mg 1-06 tablet by ity o f tablet 00:00: mouth [place] 00 every 12 Medical (twelve) Branch hours. clotrimazol 2020- Yes [id number] Apply to [facility] e-betametha 1-06 area(s) 2 ity of sone cream 00:00: (two) [place] 00 times Medical daily. Use Branch for 2 weeks on affected area metroNIDAZO 2019-05 Yes [id number] 500mg Take 1 [facility] LE 500 mg 1-06 tablet by ity o f tablet 00:00: mouth [place] 00 every 12 Medical (twelve) Branch hours. clotrimazol 2020- Yes [id number] Apply to [facility] e-betametha 1-06 area(s) 2 ity of sone cream 00:00: (two) [place] 00 times Medical daily. Use Branch for 2 weeks on affected area metroNIDAZO 2020 Yes [id number] 500mg Take 1 [facility] LE 500 mg 1-06 tablet by ity o f tablet 00:00: mouth [place] 00 every 12 Medical (twelve) Branch hours. clotrimazol 2020- Yes [id number] Apply to [facility] e-betametha 1-06 area(s) 2 ity of sone cream 00:00: (two) [place] 00 times Medical daily. Use Branch for 2 weeks on affected area metroNIDAZO 2020 Yes [id number] 500mg Take 1 [facility] LE 500 mg 1-06 tablet by ity o f tablet 00:00: mouth [place] 00 every 12 Medical (twelve) Branch hours. clotrimazol 2020- Yes [id number] Apply to [facility] e-betametha 1-06 area(s) 2 [facility] of sone cream 00:00: (two) [place] 00 times Medical daily. Use Branch for 2 weeks on affected area metroNIDAZO 2020- Yes [id number] 500mg Take 1 [facility] LE 500 mg 1-06 tablet by ity o f tablet 00:00: mouth [place] 00 every 12 Medical (twelve) Branch hours. clotrimazol 2020- Yes [id number] Apply to [facility] e-betametha 1-06 area(s) 2 [facility] of sone cream 00:00: (two) [place] 00 times Medical daily. Use Branch for 2 weeks on affected area metroNIDAZO 2020- Yes [id number] 500mg Take 1 [facility] LE 500 mg 1-06 tablet by [facility] o f tablet 00:00: mouth [place] 00 every 12 Medical (twelve) Branch hours. clotrimazol 2020- Yes [id number] Apply to [facility] e-betametha 1-06 area(s) 2 [facility] of sone cream 00:00: (two) [place] 00 times Medical daily. Use Branch for 2 weeks on affected area clotrimazol 2020- Yes [id number] Apply to [facility] e-betametha 1-06 area(s) 2 [facility] of sone cream 00:00: (two) [place] 00 times Medical daily. Use Branch for 2 weeks on affected area clotrimazol 2020- Yes [id number] Apply to [facility] e-betametha 1-06 area(s) 2 [facility] of sone cream 00:00: (two) [place] 00 times Medical daily. Use Branch for 2 weeks on affected area clotrimazol 2020- Yes [id number] Apply to [facility] e-betametha 1-06 area(s) 2 [facility] of sone cream 00:00: (two) [place] 00 times Medical daily. Use Branch for 2 weeks on affected area clotrimazol 2020- Yes [id number] Apply to [facility] e-betametha 1-06 area(s) 2 [facility] of sone cream 00:00: (two) [place] 00 times Medical daily. Use Branch for 2 weeks on affected area clotrimazol 2020-1 Yes [id number] Apply to [facility] e-betametha 1-06 area(s) 2 [facility]y of sone cream 00:00: (two) [place] 00 times Medical daily. Use Branch for 2 weeks on affected area clotrimazol 2020-1 Yes [id number] Apply to [facility] e-betametha 1-06 area(s) 2 [facility] of sone cream 00:00: (two) [place] 00 times Medical daily. Use Branch for 2 weeks on affected area clotrimazol 2020-1 Yes [id number] Apply to [facility] e-betametha 1-06 area(s) 2 [facility] of sone cream 00:00: (two) [place] 00 times Medical daily. Use Branch for 2 weeks on affected area clotrimazol 2020-1 Yes [id number] Apply to [facility] e-betametha 1-06 area(s) 2 [facility]y of sone cream 00:00: (two) [place] 00 times Medical daily. Use Branch for 2 weeks on affected area clotrimazol 2020-1 Yes [id number] Apply to [facility] e-betametha 1-06 area(s) 2 [facility] of sone cream 00:00: (two) [place] 00 times Medical daily. Use Branch for 2 weeks on affected area clotrimazol 2020-1 Yes [id number] Apply to [facility] e-betametha 1-06 area(s) 2 [facility] of sone cream 00:00: (two) [place] 00 times Medical daily. Use Branch for 2 weeks on affected area clotrimazol 2020-1 Yes [id number] Apply to [facility] e-betametha 1-06 area(s) 2 [facility] of sone cream 00:00: (two) [place] 00 times Medical daily. Use Branch for 2 weeks on affected area clotrimazol 2020-1 Yes [id number] Apply to [facility] e-betametha 1-06 area(s) 2 [facility] of sone cream 00:00: (two) [place] 00 times Medical daily. Use Branch for 2 weeks on affected area clotrimazol 2020-1 202- No [id number] Apply to [facility] e-betametha 1-06 04-09 area(s) 2 it y of sone cream 00:00: 00:00 (two) [place] 00 :00 times Medical daily. Use Branch for 2 weeks on affected area clotrimazol 2019-05- No [id number] Apply to [facility] e-betametha 06-03 area(s) 2 it y of sone cream 00:00: 00:00 (two) [place] 00 :00 times Medical daily. Use Branch for 2 weeks on affected area metroNIDAZO 2019-05- No [id number] 500mg Take 1 [facility] LE 500 mg 06-03 tablet by ity of tablet 00:00: 00:00 mouth [place] 00 :00 every 12 Medical (twelve) Branch hours. metroNIDAZO 2019-05- No [id number] 500mg Take 1 [facility] LE 500 mg 06-03 tablet by ity of tablet 00:00: 00:00 mouth [place] 00 :00 every 12 Medical (twelve) Branch hours. fluconazole 2019-05- No [id number] 150mg Take 1 [facility] 150 mg 06-03 tablet by ity of tablet 00:00: 05:59 mouth [place] 00 :00 every 72 Medical (seventy-t Branch wo) hours for 2 doses. Take one tab now and a second dose in 72 hours fluconazole 2019-05- No [id number] 150mg Take 1 [facility] 150 mg 06-03 tablet by ity of tablet 00:00: 05:59 mouth [place] 00 :00 every 72 Medical (seventy-t Branch wo) hours for 2 doses. Take one tab now and a second dose in 72 hours fluconazole 2019-05- No [id number] 150mg Take 1 [facility] 150 mg 06-03 tablet by ity of tablet 00:00: 05:59 mouth [place] 00 :00 every 72 Medical (seventy-t Branch wo) hours for 2 doses. Take one tab now and a second dose in 72 hours fluconazole 2019-05- No [id number] 150mg Take 1 [facility] 150 mg 06-03 tablet by ity of tablet 00:00: 05:59 mouth [place] 00 :00 every 72 Medical (seventy-t Branch wo) hours for 2 doses. Take one tab now and a second dose in 72 hours PANTOPRAZOL 2019- Yes [id number] TAKE 1 [facility] E 40 mg EC 0-23 TABLET BY ity of tablet 00:00: MOUTH ONCE [place] 00 DAILY DO Medical NOT CRUSH Branch OR CHEW POTASSIUM 2020-1 Yes [id number] Take 1 [facility] CHLORIDE 10 0-23 tablet by ity of mEq CR 00:00: mouth once [place] tablet 00 daily Medical Branch PANTOPRAZOL 2020- Yes [id number] TAKE 1 [facility] E 40 mg EC 0-23 TABLET BY ity of tablet 00:00: MOUTH ONCE [place] 00 DAILY DO Medical NOT CRUSH Branch OR CHEW POTASSIUM 2020-1 Yes [id number] Take 1 [facility] CHLORIDE 10 0-23 tablet by ity of mEq CR 00:00: mouth once [place] tablet 00 daily Medical Branch PANTOPRAZOL 2020- Yes [id number] TAKE 1 [facility] E 40 mg EC 0-23 TABLET BY ity of tablet 00:00: MOUTH ONCE [place] 00 DAILY DO Medical NOT CRUSH Branch OR CHEW POTASSIUM 2020- Yes [id number] Take 1 [facility] CHLORIDE 10 0-23 tablet by [facility] of mEq CR 00:00: mouth once [place] tablet 00 daily Medical Branch PANTOPRAZOL 2020- Yes [id number] TAKE 1 [facility] E 40 mg EC 0-23 TABLET BY ity of tablet 00:00: MOUTH ONCE [place] 00 DAILY DO Medical NOT CRUSH Branch OR CHEW POTASSIUM 2020-1 Yes [id number] Take 1 [facility] CHLORIDE 10 0-23 tablet by ity of mEq CR 00:00: mouth once [place] tablet 00 daily Medical Branch PANTOPRAZOL 2020- Yes [id number] TAKE 1 [facility] E 40 mg EC 0-23 TABLET BY ity of tablet 00:00: MOUTH ONCE [place] 00 DAILY DO Medical NOT CRUSH Branch OR CHEW POTASSIUM 2020-1 Yes [id number] Take 1 [facility] CHLORIDE 10 0-23 tablet by [facility]y of mEq CR 00:00: mouth once [place] tablet 00 daily Medical Branch PANTOPRAZOL 2020-1 Yes [id number] TAKE 1 [facility] E 40 mg EC 0-23 TABLET BY ity of tablet 00:00: MOUTH ONCE [place] 00 DAILY DO Medical NOT CRUSH Branch OR CHEW POTASSIUM 2020-1 Yes [id number] Take 1 [facility] CHLORIDE 10 0-23 tablet by ity of mEq CR 00:00: mouth once [place] tablet 00 daily Medical Branch PANTOPRAZOL 2020- Yes [id number] TAKE 1 [facility] E 40 mg EC 0-23 TABLET BY ity of tablet 00:00: MOUTH ONCE [place] 00 DAILY DO Medical NOT CRUSH Branch OR CHEW POTASSIUM 2020-1 Yes [id number] Take 1 [facility] CHLORIDE 10 0-23 tablet by ity of mEq CR 00:00: mouth once [place] tablet 00 daily Medical Branch PANTOPRAZOL 2020- Yes [id number] TAKE 1 [facility] E 40 mg EC 0-23 TABLET BY ity of tablet 00:00: MOUTH ONCE [place] 00 DAILY DO Medical NOT CRUSH Branch OR CHEW POTASSIUM 2020-1 Yes [id number] Take 1 [facility] CHLORIDE 10 0-23 tablet by ity of mEq CR 00:00: mouth once [place] tablet 00 daily Medical Branch PANTOPRAZOL 2019- 2020- No [id number] TAKE 1 [facility] E 40 mg EC 0-23 11-18 TABLET BY [facility] of tablet 00:00: 00:00 MOUTH [place]CE [place] 00 :00 DAILY DO Medical NOT CRUSH Branch OR CHEW POTASSIUM 2019- 2020- No [id number] Take 1 [facility] CHLORIDE 10 0-23 11-18 tablet by it y of mEq CR 00:00: 00:00 mouth [place] tablet 00 :00 daily Medical Branch gabapentin 2019- Yes [id number] 800mg Take 1 [facility] 800 mg 0-14 tablet by ity of tablet 00:00: mouth (three) Medical times Branch daily. gabapentin 2020- Yes [id number] 800mg Take 1 [facility] 800 mg 0-14 tablet by ity of tablet 00:00: mouth (three) Medical times Branch daily. gabapentin 2020-1 Yes [id number] 800mg Take 1 [facility] 800 mg 0-14 tablet by ity of tablet 00:00: mouth (three) Medical times Branch daily. gabapentin 2020-1 Yes [id number] 800mg Take 1 [facility] 800 mg 0-14 tablet by ity of tablet 00:00: mouth (three) Medical times Branch daily. gabapentin 2020-1 Yes [id number] 800mg Take 1 [facility] 800 mg 0-14 tablet by [facility]y of tablet 00:00: mouth 3 (three) Medical times Branch daily. gabapentin 2020-1 Yes [id number] 800mg Take 1 [facility] 800 mg 0-14 tablet by ity of tablet 00:00: mouth 3 (three) Medical times Branch daily. gabapentin 2020-1 Yes [id number] 800mg Take 1 [facility] 800 mg 0-14 tablet by [facility]y of tablet 00:00: mouth (three) Medical times Branch daily. gabapentin 2020-1 Yes [id number] 800mg Take 1 [facility] 800 mg 0-14 tablet by ity of tablet 00:00: mouth 3 [place] 00 (three) Medical times Branch daily. gabapentin 2020-1 2020- No [id number] 800mg Take 1 [facility] 800 mg 0-14 11-16 tablet by ity of tablet 00:00: 00:00 mouth 3 [place] 00 :00 (three) Medical times Branch daily. FUROSEMIDE 2020-0 Yes [id number] Take 1 [facility] 20 mg 8-18 tablet by ity of tablet 00:00: mouth once daily Medical Branch FUROSEMIDE 2020-0 Yes [id number] Take 1 [facility] 20 mg 8-18 tablet by ity of tablet 00:00: mouth once daily Medical Branch FUROSEMIDE 2020-0 Yes [id number] Take 1 [facility] 20 mg 8-18 tablet by ity of tablet 00:00: mouth once [place] daily Medical Branch FUROSEMIDE 2020-0 Yes [id number] Take 1 [facility] n[facility] 20 mg 8-18 tablet by ity of tablet 00:00: mouth once daily Medical Branch FUROSEMIDE 2020-0 Yes [id number] Take 1 [facility] 20 mg 8-18 tablet by ity of tablet 00:00: mouth once [place] daily Medical Branch FUROSEMIDE 2020-0 Yes [id number] Take 1 [facility] n[facility] 20 mg 8-18 tablet by ity of tablet 00:00: mouth once [place] daily Medical Branch FUROSEMIDE 2020-0 Yes [id number] Take 1 [facility] 20 mg 8-18 tablet by ity of tablet 00:00: mouth once [place] daily Medical Branch FUROSEMIDE 2020-0 Yes [id number] Take 1 [facility] n[facility] 20 mg 8-18 tablet by ity of tablet 00:00: mouth once [place] daily Medical Branch FUROSEMIDE 2020-0 Yes [id number] Take 1 [facility] 20 mg 8-18 tablet by ity of tablet 00:00: mouth once [place] daily Medical Branch FUROSEMIDE 2020-0 Yes [id number] Take 1 [facility] 20 mg 8-18 tablet by ity of tablet 00:00: mouth once [place] daily Medical Branch FUROSEMIDE 2020-0 Yes [id number] Take 1 [facility] n[facility] 20 mg 8-18 tablet by ity of tablet 00:00: mouth once daily Medical Branch FUROSEMIDE 2020-0 Yes [id number] Take 1 [facility] n[facility] 20 mg 8-18 tablet by ity of tablet 00:00: mouth once [place] 00 daily Medical Branch FUROSEMIDE 2020-0 2020- No [id number] Take 1 [facility] 20 mg 8-18 11-18 tablet by [facility] of tablet 00:00: 00:00 mouth [place] 00 :00 daily Medical Branch fluconazole 2020-0 2020- No [id number] 150mg Take 1 [facility] 150 mg 8-14 08-15 tablet by [facility] of tablet 00:00: 04:59 mouth once [place] 00 :00 now for 1 Medical dose. Branch fluconazole 2020-0 2020- No [id number] 150mg Take 1 [facility] 150 mg 8-14 08-15 tablet by [facility] of tablet 00:00: 04:59 mouth once [place] 00 :00 now for 1 Medical dose. Branch gabapentin 2020-0 Yes [id number] 800mg Take 1 [facility] 800 mg 7-15 tablet by ity of tablet 00:00: mouth (three) Medical times Branch daily. gabapentin 2020-0 Yes [id number] 800mg Take 1 [facility] 800 mg 7-15 tablet by ity of tablet 00:00: mouth (three) Medical times Branch daily. gabapentin 2020-0 Yes [id number] 800mg Take 1 [facility] 800 mg 7-15 tablet by ity of tablet 00:00: mouth (three) Medical times Branch daily. gabapentin 2020-0 Yes [id number] 800mg Take 1 [facility] 800 mg 7-15 tablet by ity of tablet 00:00: mouth (three) Medical times Branch daily. gabapentin 2020-0 Yes [id number] 800mg Take 1 [facility] 800 mg 7-15 tablet by ity of tablet 00:00: mouth (three) Medical times Branch daily. gabapentin 2020-0 Yes [id number] 800mg Take 1 [facility] 800 mg 7-15 tablet by ity of tablet 00:00: mouth 3 (three) Medical times Branch daily. gabapentin 2020-0 Yes [id number] 800mg Take 1 [facility] 800 mg 7-15 tablet by ity of tablet 00:00: mouth 3 (three) Medical times Branch daily. gabapentin 2020-0 2020- No [id number] 800mg Take 1 [facility] 800 mg 7-15 10-14 tablet by ity of tablet 00:00: 00:00 mouth 3 [place] 00 :00 (three) Medical times Branch daily. metFORMIN 2020-0 Yes 1000mg Take 2 [facility] ers 500 mg 7-09 tablets by ity of tablet 00:00: mouth 2 (two) Medical times Branch daily with meals. pantoprazol 2020-0 Yes [id number] 40mg Take 1 [facility] e 40 mg EC 7-09 tablet by ity of tablet 00:00: mouth 00 daily. Do Medical not Crush Branch or Chew DULOXETINE 2020-0 Yes [id number] Take 1 [facility] 30 mg 7-09 capsule by [facility] of capsule 00:00: mouth once [place] 00 daily Medical Branch metFORMIN 2020-0 Yes 1000mg Take 2 [facility] ers 500 mg 7-09 tablets by ity of tablet 00:00: mouth 2 (two) Medical times Branch daily with meals. POTASSIUM 2020-0 Yes [id number] Take 1 [facility] CHLORIDE 10 7-09 tablet by ity of mEq CR 00:00: mouth once [place] tablet 00 daily Medical Branch pantoprazol 2020-0 Yes [id number] 40mg Take 1 [facility] e 40 mg EC 7-09 tablet by ity of tablet 00:00: mouth 00 daily. Do Medical not Crush Branch or Chew DULOXETINE 2020-0 Yes [id number] Take 1 [facility] 30 mg 7-09 capsule by [facility] of capsule 00:00: mouth once [place] 00 daily Medical Branch metFORMIN 2020-0 Yes 1000mg Take 2 [facility] ers 500 mg 7-09 tablets by ity of tablet 00:00: mouth (two) Medical times Branch daily with meals. POTASSIUM 2020-0 Yes [id number] Take 1 [facility] CHLORIDE 10 7-09 tablet by ity of mEq CR 00:00: mouth once [place] tablet 00 daily Medical Branch pantoprazol 2020-0 Yes [id number] 40mg Take 1 [facility] e 40 mg EC 7-09 tablet by ity of tablet 00:00: mouth 00 daily. Do Medical not Crush Branch or Chew DULOXETINE 2020-0 Yes [id number] Take 1 [facility] 30 mg 7-09 capsule by [facility] of capsule 00:00: mouth once [place] 00 daily Medical Branch metFORMIN 2020-0 Yes 1000mg Take 2 [facility] ers 500 mg 7-09 tablets by ity of tablet 00:00: mouth 2 (two) Medical times Branch daily with meals. POTASSIUM 2020-0 Yes [id number] Take 1 [facility] CHLORIDE 10 7-09 tablet by ity of mEq CR 00:00: mouth once [place] tablet 00 daily Medical Branch pantoprazol 2020-0 Yes [id number] 40mg Take 1 [facility] e 40 mg EC 7-09 tablet by ity of tablet 00:00: mouth [place] 00 daily. Do Medical not Crush Branch or Chew DULOXETINE 2020-0 Yes [id number] Take 1 [facility] 30 mg 7-09 capsule by [facility] of capsule 00:00: mouth once [place] 00 daily Medical Branch metFORMIN 2020-0 Yes 1000mg Take 2 [facility] ers 500 mg 7-09 tablets by ity of tablet 00:00: mouth 2 (two) Medical times Branch daily with meals. POTASSIUM 2020-0 Yes [id number] Take 1 [facility] CHLORIDE 10 7-09 tablet by ity of mEq CR 00:00: mouth once [place] tablet 00 daily Medical Branch pantoprazol 2020-0 Yes [id number] 40mg Take 1 [facility] e 40 mg EC 7-09 tablet by ity of tablet 00:00: mouth 00 daily. Do Medical not Crush Branch or Chew DULOXETINE 2020-0 Yes [id number] Take 1 [facility] 30 mg 7-09 capsule by [facility] of capsule 00:00: mouth once [place] 00 daily Medical Branch metFORMIN 2020-0 Yes 1000mg Take 2 [facility] ers 500 mg 7-09 tablets by ity of tablet 00:00: mouth 2 (two) Medical times Branch daily with meals. POTASSIUM 2020-0 Yes [id number] Take 1 [facility] CHLORIDE 10 7-09 tablet by ity of mEq CR 00:00: mouth once [place] tablet 00 daily Medical Branch pantoprazol 2020-0 Yes [id number] 40mg Take 1 [facility] e 40 mg EC 7-09 tablet by ity of tablet 00:00: mouth [place] 00 daily. Do Medical not Crush Branch or Chew DULOXETINE 2020-0 Yes [id number] Take 1 [facility] 30 mg 7-09 capsule by [facility] of capsule 00:00: mouth once [place] 00 daily Medical Branch metFORMIN 2020-0 Yes 1000mg Take 2 [facility] ers 500 mg 7-09 tablets by ity of tablet 00:00: mouth 2 (two) Medical times Branch daily with meals. POTASSIUM 2020-0 Yes [id number] Take 1 [facility] CHLORIDE 10 7-09 tablet by ity of mEq CR 00:00: mouth once [place] tablet 00 daily Medical Branch pantoprazol 2020-0 Yes [id number] 40mg Take 1 [facility] e 40 mg EC 7-09 tablet by ity of tablet 00:00: mouth [place] 00 daily. Do Medical not Crush Branch or Chew DULOXETINE 2020-0 Yes [id number] Take 1 [facility] 30 mg 7-09 capsule by [facility] of capsule 00:00: mouth once [place] 00 daily Medical Branch metFORMIN 2020-0 Yes 1000mg Take 2 [facility] ers 500 mg 7-09 tablets by ity of tablet 00:00: mouth 2 (two) Medical times Branch daily with meals. POTASSIUM 2020-0 Yes [id number] Take 1 [facility] CHLORIDE 10 7-09 tablet by ity of mEq CR 00:00: mouth once [place] tablet 00 daily Medical Branch pantoprazol 2020-0 Yes [id number] 40mg Take 1 [facility] e 40 mg EC 7-09 tablet by ity of tablet 00:00: mouth 00 daily. Do Medical not Crush Branch or Chew DULOXETINE 2020-0 Yes [id number] Take 1 [facility] 30 mg 7-09 capsule by ity of capsule 00:00: mouth once [place] 00 daily Medical Branch metFORMIN 2020-0 Yes 1000mg Take 2 [facility] ers 500 mg 7-09 tablets by ity of tablet 00:00: mouth (two) Medical times [place] daily with meals. POTASSIUM 2020-0 Yes [id number] Take 1 [facility] CHLORIDE 10 7-09 tablet by ity of mEq CR 00:00: mouth once [place] tablet 00 daily Medical Branch pantoprazol 2020-0 Yes [id number] 40mg Take 1 [facility] e 40 mg EC 7-09 tablet by ity of tablet 00:00: mouth [place] 00 daily. Do Medical not Crush Branch or Chew DULOXETINE 2020-0 Yes [id number] Take 1 [facility] 30 mg 7-09 capsule by ity of capsule 00:00: mouth once [place] 00 daily Medical Branch metFORMIN 2020-0 Yes 1000mg Take 2 [facility] ers 500 mg 7-09 tablets by ity of tablet 00:00: mouth 2 (two) Medical times [place] daily with meals. POTASSIUM 2020-0 Yes [id number] Take 1 [facility] CHLORIDE 10 7-09 tablet by ity of mEq CR 00:00: mouth once [place] tablet 00 daily Medical Branch DULOXETINE 2020-0 Yes [id number] Take 1 [facility] 30 mg 7-09 capsule by it[facility] of capsule 00:00: mouth once [place] 00 daily Medical Branch metFORMIN 2020-0 Yes 1000mg Take 2 [facility] ers 500 mg 7-09 tablets by ity of tablet 00:00: mouth [place] (two) Medical times Branch daily with meals. DULOXETINE 2020-0 Yes [id number] Take 1 [facility] 30 mg 7-09 capsule by it[facility] of capsule 00:00: mouth once [place] 00 daily Medical Branch metFORMIN 2020-0 Yes 1000mg Take 2 [facility] ers 500 mg 7-09 tablets by ity of tablet 00:00: mouth 2 [place] (two) Medical times Branch daily with meals. DULOXETINE 2020-0 Yes [id number] Take 1 [facility] 30 mg 7-09 capsule by it[facility] of capsule 00:00: mouth once [place] 00 daily Medical Branch metFORMIN 2020-0 Yes 1000mg Take 2 [facility] ers 500 mg 7-09 tablets by ity of tablet 00:00: mouth 2 [place] (two) Medical times Branch daily with meals. DULOXETINE 2020-0 Yes [id number] Take 1 [facility] 30 mg 7-09 capsule by ity of capsule 00:00: mouth once [place] 00 daily Medical Branch metFORMIN 2020-0 Yes 1000mg Take 2 [facility] ers 500 mg 7-09 tablets by ity of tablet 00:00: mouth [place] ([facility]) Medical times Branch daily with meals. DULOXETINE 2020-0 Yes [id number] Take 1 [facility] 30 mg 7-09 capsule by ity of capsule 00:00: mouth once [place] 00 daily Medical Branch metFORMIN 2020-0 Yes 1000mg Take 2 [facility] ers 500 mg 7-09 tablets by ity of tablet 00:00: mouth [place] ([facility]) Medical times Branch daily with meals. DULOXETINE 2020-0 Yes [id number] Take 1 [facility] 30 mg 7-09 capsule by ity of capsule 00:00: mouth once [place] 00 daily Medical Branch metFORMIN 2020-0 Yes 1000mg Take 2 [facility] ers 500 mg 7-09 tablets by ity of tablet 00:00: mouth [place] ([facility]) Medical times Branch daily with meals. DULOXETINE 2020-0 Yes [id number] Take 1 [facility] 30 mg 7-09 capsule by ity of capsule 00:00: mouth once [place] 00 daily Medical Branch metFORMIN 2020-0 Yes 1000mg Take 2 [facility] ers 500 mg 7-09 tablets by ity of tablet 00:00: mouth 2 [place] (two) Medical times Branch daily with meals. DULOXETINE 2020-0 Yes [id number] Take 1 [facility] 30 mg 7-09 capsule by ity of capsule 00:00: mouth once [place] daily Medical Branch metFORMIN 2020-0 Yes 1000mg Take 2 [facility] ers 500 mg 7-09 tablets by ity of tablet 00:00: mouth 2 [place] (two) Medical times Branch daily with meals. DULOXETINE 2020-0 Yes [id number] Take 1 [facility] 30 mg 7-09 capsule by ity of capsule 00:00: mouth once [place] daily Medical Branch metFORMIN 2020-0 Yes 1000mg Take 2 [facility] ers 500 mg 7-09 tablets by ity of tablet 00:00: mouth 2 [place] (two) Medical times Branch daily with meals. DULOXETINE 2020-0 Yes [id number] Take 1 [facility] 30 mg 7-09 capsule by ity of capsule 00:00: mouth once [place] daily Medical Branch metFORMIN 2020-0 Yes 1000mg Take 2 [facility] ers 500 mg 7-09 tablets by ity of tablet 00:00: mouth 2 [place] ([facility]) Medical times Branch daily with meals. DULOXETINE 2020-0 Yes [id number] Take 1 [facility] 30 mg 7-09 capsule by ity of capsule 00:00: mouth once [place] daily Medical Branch metFORMIN 2020-0 Yes 1000mg Take 2 [facility] ers 500 mg 7-09 tablets by ity of tablet 00:00: mouth [place] ([facility]) Medical times Branch daily with meals. DULOXETINE 2020-0 Yes [id number] Take 1 [facility] 30 mg 7-09 capsule by ity of capsule 00:00: mouth once [place] 00 daily Medical Branch metFORMIN 2020-0 Yes 1000mg Take 2 [facility] ers 500 mg 7-09 tablets by ity of tablet 00:00: mouth 2 [place] (two) Medical times Branch daily with meals. DULOXETINE 2020-0 Yes [id number] Take 1 [facility] 30 mg 7-09 capsule by ity of capsule 00:00: mouth once [place] 00 daily Medical Branch metFORMIN 2020-0 Yes 1000mg Take 2 [facility] ers 500 mg 7-09 tablets by ity of tablet 00:00: mouth 2 [place] (two) Medical times Branch daily with meals. DULOXETINE 2020-0 Yes [id number] Take 1 [facility] 30 mg 7-09 capsule by ity of capsule 00:00: mouth once [place] 00 daily Medical Branch metFORMIN 2020-0 Yes 1000mg Take 2 [facility] ers 500 mg 7-09 tablets by ity of tablet 00:00: mouth [place] (two) Medical times Branch daily with meals. metFORMIN 2020-0 Yes 1000mg Take 2 [facility] ers 500 mg 7-09 tablets by ity of tablet 00:00: mouth [place] (two) Medical times Branch daily with meals. metFORMIN 2020-0 Yes 1000mg Take 2 [facility] ers 500 mg 7-09 tablets by ity of tablet 00:00: mouth [place] (two) Medical times Branch daily with meals. metFORMIN 2020-0 Yes 1000mg Take 2 [facility] ers 500 mg 7-09 tablets by ity of tablet 00:00: mouth [place] (two) Medical times Branch daily with meals. metFORMIN 2020-0 Yes 1000mg Take 2 [facility] ers 500 mg 7-09 tablets by ity of tablet 00:00: mouth [place] (two) Medical times Branch daily with meals. metFORMIN 2020-0 Yes 1000mg Take 2 [facility] ers 500 mg 7-09 tablets by ity of tablet 00:00: mouth [place] (two) Medical times Branch daily with meals. metFORMIN 2020-0 Yes 1000mg Take 2 [facility] ers 500 mg 7-09 tablets by ity of tablet 00:00: mouth [place] ([facility]) Medical times Branch daily with meals. metFORMIN 2020-0 Yes 1000mg Take 2 [facility] ers 500 mg 7-09 tablets by ity of tablet 00:00: mouth [place] (two) Medical times Branch daily with meals. metFORMIN 2020-0 Yes 1000mg Take 2 [facility] ers 500 mg 7-09 tablets by ity of tablet 00:00: mouth [place] (two) Medical times Branch daily with meals. metFORMIN 2020-0 Yes 1000mg Take 2 [facility] ers 500 mg 7-09 tablets by ity of tablet 00:00: mouth [place] ([facility]) Medical times Branch daily with meals. metFORMIN 2020-0 2021- No 1000mg Take 2 [facility] vers 500 mg 7-09 03-09 tablets by ity of tablet 00:00: 00:00 mouth 2 [place] 00 :00 (two) Medical times Branch daily with meals. DULOXETINE 2020-0 2020- No [id number] Take 1 [facility] 30 mg 7-09 12-19 capsule by ity of capsule 00:00: 00:00 mouth once [place] 00 :00 daily Medical Branch DULOXETINE 2020-0 2020- No [id number] Take 1 [facility] 30 mg 12-04 capsule by ity of capsule 00:00: 00:00 mouth once [place] 00 :00 daily Medical Branch pantoprazol 2020-0 2020- No [id number] 40mg Take 1 [facility] e 40 mg EC 12-04 tablet by ity of tablet 00:00: 00:00 mouth [place] 00 :00 daily. Do Medical not Crush Branch or Chew POTASSIUM 2020-0 2020- No [id number] Take 1 [facility] nivers CHLORIDE 10 12-04 tablet by it y of mEq CR 00:00: 00:00 mouth once [place] tablet 00 :00 daily Medical Branch PANTOPRAZOL 2020-0 Yes [id number] Take 1 [facility] E 40 mg EC 6-08 tablet by ity of tablet 00:00: mouth once [place] 00 daily Medical Branch POTASSIUM 2020-0 Yes [id number] Take 1 [facility] CHLORIDE 10 6-08 tablet by ity of mEq CR 00:00: mouth once [place] tablet 00 daily Medical Branch PANTOPRAZOL 2020-0 Yes [id number] Take 1 [facility] E 40 mg EC 6-08 tablet by ity of tablet 00:00: mouth once [place] 00 daily Medical Branch POTASSIUM 2020-0 Yes [id number] Take 1 [facility] CHLORIDE 10 6-08 tablet by ity of mEq CR 00:00: mouth once [place] tablet 00 daily Medical Branch aspirin 81 2020-0 Yes 81mg Take 1 Unive rs mg chewable 5-15 tablet by ity of tablet 20:19: mouth [place] 33 daily. Medical Branch aspirin 81 2020-0 Yes 81mg Take 1 [facility] mg chewable 5-15 tablet by ity of tablet 20:19: mouth [place] 33 daily. Medical Branch aspirin 81 2020-0 Yes 81mg Take 1 [facility] mg chewable 5-15 tablet by ity of tablet 20:19: mouth [place] 33 daily. Medical Branch aspirin 81 2020-0 Yes 81mg Take 1 [facility] mg chewable 5-15 tablet by ity of tablet 20:19: mouth [place] 33 daily. Medical Branch aspirin 81 2020-0 Yes 81mg Take 1 [facility] mg chewable 5-15 tablet by ity of tablet 20:19: mouth [place] 33 daily. Medical Branch aspirin 81 2020-0 Yes 81mg Take 1 [facility] mg chewable 5-15 tablet by ity of tablet 20:19: mouth [place] 33 daily. Medical Branch aspirin 81 2020-0 Yes 81mg Take 1 [facility] mg chewable 5-15 tablet by ity of tablet 20:19: mouth [place] 33 daily. Medical Branch aspirin 81 2020-0 Yes 81mg Take 1 [facility] mg chewable 5-15 tablet by ity of tablet 20:19: mouth [place] 33 daily. Medical Branch aspirin 81 2020-0 Yes 81mg Take 1 [facility] mg chewable 5-15 tablet by ity of tablet 20:19: mouth [place] 33 daily. Medical Branch aspirin 81 2020-0 Yes 81mg Take 1 [facility] mg chewable 5-15 tablet by ity of tablet 20:19: mouth [place] 33 daily. Medical Branch aspirin 81 2020-0 Yes 81mg Take 1 [facility] mg chewable 5-15 tablet by ity of tablet 20:19: mouth [place] 33 daily. Medical Branch aspirin 81 2020-0 Yes 81mg Take 1 [facility] mg chewable 5-15 tablet by ity of tablet 20:19: mouth [place] 33 daily. Medical Branch aspirin 81 2020-0 Yes 81mg Take 1 [facility] mg chewable 5-15 tablet by ity of tablet 20:19: mouth [place] 33 daily. Medical Branch aspirin 81 2020-0 Yes 81mg Take 1 [facility] mg chewable 5-15 tablet by ity of tablet 20:19: mouth [place] 33 daily. Medical Branch aspirin 81 2020-0 Yes 81mg Take 1 [facility] mg chewable 5-15 tablet by ity of tablet 20:19: mouth [place] 33 daily. Medical Branch aspirin 81 2020-0 Yes 81mg Take 1 [facility] mg chewable 5-15 tablet by ity of tablet 20:19: mouth [place] 33 daily. Medical Branch aspirin 81 2020-0 Yes 81mg Take 1 [facility] mg chewable 5-15 tablet by ity of tablet 20:19: mouth [place] 33 daily. Medical Branch aspirin 81 2020-0 Yes 81mg Take 1 [facility] mg chewable 5-15 tablet by ity of tablet 20:19: mouth [place] 33 daily. Medical Branch aspirin 81 2020-0 Yes 81mg Take 1 [facility] rs mg chewable 5-15 tablet by ity of tablet 20:19: mouth [place] 33 daily. Medical Branch aspirin 81 2020-0 Yes 81mg Take 1 [facility] rs mg chewable 5-15 tablet by ity of tablet 20:19: mouth [place] 33 daily. Medical Branch aspirin 81 2020-0 Yes 81mg Take 1 [facility] rs mg chewable 5-15 tablet by ity of tablet 20:19: mouth [place] 33 daily. Medical Branch aspirin 81 2020-0 Yes 81mg Take 1 [facility] rs mg chewable 5-15 tablet by ity of tablet 20:19: mouth [place] 33 daily. Medical Branch aspirin 81 2020-0 Yes 81mg Take 1 [facility] rs mg chewable 5-15 tablet by ity of tablet 20:19: mouth [place] 33 daily. Medical Branch aspirin 81 2020-0 Yes 81mg Take 1 [facility] rs mg chewable 5-15 tablet by ity of tablet 20:19: mouth [place] 33 daily. Medical Branch aspirin 81 2020-0 Yes 81mg Take 1 [facility] rs mg chewable 5-15 tablet by ity of tablet 20:19: mouth [place] 33 daily. Medical Branch aspirin 81 2020-0 Yes 81mg Take 1 [facility] rs mg chewable 5-15 tablet by ity of tablet 20:19: mouth [place] 33 daily. Medical Branch aspirin 81 2020-0 Yes 81mg Take 1 [facility] rs mg chewable 5-15 tablet by ity of tablet 20:19: mouth [place] 33 daily. Medical Branch aspirin 81 2020-0 Yes 81mg Take 1 [facility] rs mg chewable 5-15 tablet by ity of tablet 20:19: mouth [place] 33 daily. Medical Branch aspirin 81 2020-0 Yes 81mg Take 1 [facility] rs mg chewable 5-15 tablet by ity of tablet 20:19: mouth [place] 33 daily. Medical Branch aspirin 81 2020-0 Yes 81mg Take 1 [facility] mg chewable 5-15 tablet by ity of tablet 20:19: mouth [place] 33 daily. Medical Branch aspirin 81 2020-0 Yes 81mg Take 1 [facility] mg chewable 5-15 tablet by ity of tablet 20:19: mouth [place] 33 daily. Medical Branch aspirin 81 2020-0 Yes 81mg Take 1 [facility] rs mg chewable 5-15 tablet by ity of tablet 20:19: mouth [place] 33 daily. Medical Branch aspirin 81 2020-0 Yes 81mg Take 1 [facility] mg chewable 5-15 tablet by ity of tablet 20:19: mouth [place] 33 daily. Medical Branch aspirin 81 2020-0 Yes 81mg Take 1 [facility] rs mg chewable 5-15 tablet by ity of tablet 20:19: mouth [place] 33 daily. Medical Branch aspirin 81 2020-0 Yes 81mg Take 1 [facility] rs mg chewable 5-15 tablet by ity of tablet 20:19: mouth [place] 33 daily. Medical Branch aspirin 81 2020-0 Yes 81mg Take 1 [facility] mg chewable 5-15 tablet by ity of tablet 20:19: mouth [place] 33 daily. Medical Branch aspirin 81 2020-0 Yes 81mg Take 1 [facility] mg chewable 5-15 tablet by ity of tablet 20:19: mouth [place] 33 daily. Medical Branch aspirin 81 2020-0 Yes 81mg Take 1 [facility] rs mg chewable 5-15 tablet by ity of tablet 20:19: mouth [place] 33 daily. Medical Branch aspirin 81 2020-0 Yes 81mg Take 1 [facility] mg chewable 5-15 tablet by ity of tablet 20:19: mouth [place] 33 daily. Medical Branch aspirin 81 2020-0 Yes 81mg Take 1 [facility] rs mg chewable 5-15 tablet by ity of tablet 20:19: mouth [place] 33 daily. Medical Branch aspirin 81 2020-0 Yes 81mg Take 1 [facility] rs mg chewable 5-15 tablet by ity of tablet 20:19: mouth [place] 33 daily. Medical Branch aspirin 81 2020-0 Yes 81mg Take 1 [facility] rs mg chewable 5-15 tablet by ity of tablet 20:19: mouth [place] 33 daily. Medical Branch aspirin 81 2020-0 Yes 81mg Take 1 [facility] rs mg chewable 5-15 tablet by ity of tablet 20:19: mouth [place] 33 daily. Medical Branch aspirin 81 2020-0 Yes 81mg Take 1 [facility] rs mg chewable 5-15 tablet by ity of tablet 20:19: mouth [place] 33 daily. Medical Branch aspirin 81 2020-0 Yes 81mg Take 1 [facility] rs mg chewable 5-15 tablet by ity of tablet 20:19: mouth [place] 33 daily. Medical Branch aspirin 81 2020-0 Yes 81mg Take 1 [facility] rs mg chewable 5-15 tablet by ity of tablet 20:19: mouth [place] 33 daily. Medical Branch GABAPENTIN 2020-0 Yes [id number] TAKE 1 [facility] 800 mg 5-05 TABLET BY ity of tablet 00:00: MOUTH [place] 00 THREE Medical TIMES Branch DAILY GABAPENTIN 2020-0 Yes [id number] TAKE 1 [facility] 800 mg 5-05 TABLET BY ity of tablet 00:00: [facility] TIMES Branch DAILY GABAPENTIN 2020-0 Yes [id number] TAKE 1 [facility] 800 mg 5-05 TABLET BY ity of tablet 00:00: [facility] TIMES Branch DAILY GABAPENTIN 2020-0 Yes [id number] TAKE 1 [facility] 800 mg 5-05 TABLET BY ity of tablet 00:00: [facility] Medical TIMES Branch DAILY GABAPENTIN 2020-0 Yes [id number] TAKE 1 [facility] 800 mg 5-05 TABLET BY ity of tablet 00:00: [facility] Medical TIMES Branch DAILY GABAPENTIN 2020-0 Yes [id number] TAKE 1 [facility] 800 mg 5-05 TABLET BY ity of tablet 00:00: [facility] TIMES Branch DAILY GABAPENTIN 2020-0 Yes [id number] TAKE 1 [facility] 800 mg 5-05 TABLET BY ity of tablet 00:00: [facility] TIMES Branch DAILY GABAPENTIN 2020-0 Yes [id number] TAKE 1 [facility] 800 mg 5-05 TABLET BY ity of tablet 00:00: [facility] TIMES Branch DAILY GABAPENTIN 2020-0 Yes [id number] TAKE 1 [facility] 800 mg 5-05 TABLET BY ity of tablet 00:00: [facility] TIMES Branch DAILY GABAPENTIN 2020-0 Yes [id number] TAKE 1 [facility] 800 mg 5-05 TABLET BY ity of tablet 00:00: [address] TIMES [place] DAILY GABAPENTIN 2020-0 2020- No [id number] TAKE 1 [facility] 800 mg 5-05 07-15 TABLET BY ity of tablet 00:00: 00:00 [facility] 00 :00 [facility] TIMES Branch DAILY metoprolol 2020-0 Yes 100mg 100 mg, Uni vers succinate 3-21 Oral, ity of XL (TOPROL 14:00: DAILY, [place] XL) tablet 00 First dose Med ical 100 mg on [facility] Branch 08/17/19 at 0900, Until Discontinu ed, Routine atorvastati 2019-0 Yes 80mg 80 mg, Univ ers n (LIPITOR) 3-21 Oral, QHS, it y of tablet 80 02:00: First dose [place] mg 00 on Fri Medical 08/16/19 at Branch 2100, Until Discontinu ed, Routine metoprolol 2019-0 Yes 50mg 50 mg, Unive rs tartrate 3-21 Oral, BID, ity o f (LOPRESSOR) 01:00: First dose [place] tablet 50 00 on Fri Medical mg 08/16/19 at Branch 2000, Until Discontinu ed, Routine metoprolol 2020-0 Yes [id number] 100mg Take 1 Univers succinate 3-21 07 tablet by ity o f XL 100 mg 00:00: mouth [place] 24 hr 00 daily. Medical tablet [place] azithromyci 2020-0 Yes [id number] 250mg Take 1 Univers n 250 mg 3-21 07 tablet by ity of tablet 00:00: mouth [place] 00 daily. Medical Take 250 Branch mg tablet once daily metoprolol 2020-0 Yes [id number] 100mg Take 1 Univers succinate 3-21 07 tablet by ity o f XL 100 mg 00:00: mouth [place] 24 hr 00 daily. Medical tablet [place] azithromyci 2020-0 Yes [id number] 250mg Take 1 Univers n 250 mg 3-21 07 tablet by ity of tablet 00:00: mouth [place] 00 daily. Medical Take 250 Branch mg tablet once daily metoprolol 2020-0 Yes [id number] 100mg Take 1 Univers succinate 3-21 07 tablet by ity o f XL 100 mg 00:00: mouth [place] 24 hr 00 daily. Medical tablet [place] azithromyci 2020-0 Yes [id number] 250mg Take 1 Univers n 250 mg 3-21 07 tablet by ity of tablet 00:00: mouth [place] 00 daily. Medical Take 250 Branch mg tablet once daily metoprolol 2020-0 Yes [id number] 100mg Take 1 Univers succinate 3-21 07 tablet by ity o f XL 100 mg 00:00: mouth [place] 24 hr 00 daily. Medical tablet [place] azithromyci 2020-0 Yes [id number] 250mg Take 1 Univers n 250 mg 3-21 07 tablet by ity of tablet 00:00: mouth [place] 00 daily. Medical Take 250 Branch mg tablet once daily metoprolol 2020-0 Yes [id number] 100mg Take 1 Univers succinate 3-21 07 tablet by ity o f XL 100 mg 00:00: mouth [place] 24 hr 00 daily. Medical tablet [place] azithromyci 2020-0 Yes [id number] 250mg Take 1 Univers n 250 mg 3-21 07 tablet by ity of tablet 00:00: mouth [place] 00 daily. Medical Take 250 Branch mg tablet once daily metoprolol 2020-0 Yes [id number] 100mg Take 1 Univers succinate 3-21 07 tablet by ity o f XL 100 mg 00:00: mouth [place] 24 hr 00 daily. Medical tablet Branch azithromyci 2020-0 Yes [id number] 250mg Take 1 Univers n 250 mg 3-21 07 tablet by ity of tablet 00:00: mouth [place] 00 daily. Medical Take 250 Branch mg tablet once daily metoprolol 2020-0 Yes [id number] 100mg Take 1 Univers succinate 3-21 07 tablet by ity o f XL 100 mg 00:00: mouth [place] 24 hr 00 daily. Medical tablet Branch azithromyci 2020-0 Yes [id number] 250mg Take 1 Univers n 250 mg 3-21 07 tablet by ity of tablet 00:00: mouth [place] 00 daily. Medical Take 250 Branch mg tablet once daily metoprolol 2020-0 Yes [id number] 100mg Take 1 Univers succinate 3-21 07 tablet by ity o f XL 100 mg 00:00: mouth [place] 24 hr 00 daily. Medical tablet Branch azithromyci 2020-0 Yes [id number] 250mg Take 1 Univers n 250 mg 3-21 07 tablet by ity of tablet 00:00: mouth [place] 00 daily. Medical Take 250 Branch mg tablet once daily metoprolol 2020-0 Yes [id number] 100mg Take 1 Univers succinate 3-21 07 tablet by ity o f XL 100 mg 00:00: mouth [place] 24 hr 00 daily. Medical tablet Branch azithromyci 2020-0 Yes [id number] 250mg Take 1 Univers n 250 mg 3-21 07 tablet by ity of tablet 00:00: mouth [place] 00 daily. Medical Take 250 Branch mg tablet once daily metoprolol 2020-0 Yes [id number] 100mg Take 1 Univers succinate 3-21 07 tablet by ity o f XL 100 mg 00:00: mouth [place] 24 hr 00 daily. Medical tablet Branch azithromyci 2020-0 Yes [id number] 250mg Take 1 Univers n 250 mg 3-21 07 tablet by ity of tablet 00:00: mouth [place] 00 daily. Medical Take 250 Branch mg tablet once daily metoprolol 2020-0 Yes [id number] 100mg Take 1 Univers succinate 3-21 07 tablet by ity o f XL 100 mg 00:00: mouth [place] 24 hr 00 daily. Medical tablet Branch azithromyci 2020-0 Yes [id number] 250mg Take 1 Univers n 250 mg 3-21 07 tablet by ity of tablet 00:00: mouth [place] 00 daily. Medical Take 250 Branch mg tablet once daily metoprolol 2020-0 Yes [id number] 100mg Take 1 Univers succinate 3-21 07 tablet by ity o f XL 100 mg 00:00: mouth [place] 24 hr 00 daily. Medical tablet Branch azithromyci 2020-0 Yes [id number] 250mg Take 1 Univers n 250 mg 3-21 07 tablet by ity of tablet 00:00: mouth [place] 00 daily. Medical Take 250 Branch mg tablet once daily metoprolol 2020-0 Yes [id number] 100mg Take 1 Univers succinate 3-21 07 tablet by ity o f XL 100 mg 00:00: mouth [place] 24 hr 00 daily. Medical tablet Branch azithromyci 2020-0 Yes [id number] 250mg Take 1 Univers n 250 mg 3-21 07 tablet by ity of tablet 00:00: mouth [place] 00 daily. Medical Take 250 Branch mg tablet once daily metoprolol 2020-0 Yes [id number] 100mg Take 1 Univers succinate 3-21 07 tablet by ity o f XL 100 mg 00:00: mouth [place] 24 hr 00 daily. Medical tablet Branch azithromyci 2020-0 Yes [id number] 250mg Take 1 Univers n 250 mg 3-21 07 tablet by ity of tablet 00:00: mouth [place] 00 daily. Medical Take 250 Branch mg tablet once daily metoprolol 2020-0 Yes [id number] 100mg Take 1 Univers succinate 3-21 tablet by ity o f XL 100 mg 00:00: mouth [place] 24 hr 00 daily. Medical tablet Branch azithromyci 2020-0 Yes [id number] 250mg Take 1 Univers n 250 mg 3-21 tablet by ity of tablet 00:00: mouth [place] 00 daily. Medical Take 250 Branch mg tablet once daily metoprolol 2020-0 Yes [id number] 100mg Take 1 Univers succinate 3-21 tablet by ity o f XL 100 mg 00:00: mouth [place] 24 hr 00 daily. Medical tablet Branch azithromyci 2020-0 Yes [id number] 250mg Take 1 Univers n 250 mg 3-21 tablet by ity of tablet 00:00: mouth [place] 00 daily. Medical Take 250 Branch mg tablet once daily metoprolol 2020-0 Yes [id number] 100mg Take 1 Univers succinate 3-21 tablet by ity o f XL 100 mg 00:00: mouth [place] 24 hr 00 daily. Medical tablet Branch azithromyci 2020-0 Yes [id number] 250mg Take 1 Univers n 250 mg 3-21 tablet by ity of tablet 00:00: mouth [place] 00 daily. Medical Take 250 Branch mg tablet once daily metoprolol 2020-0 Yes [id number] 100mg Take 1 Univers succinate 3-21 tablet by ity o f XL 100 mg 00:00: mouth [place] 24 hr 00 daily. Medical tablet Branch metoprolol 2020-0 Yes [id number] 100mg Take 1 Univers succinate 3-21 tablet by ity o f XL 100 mg 00:00: mouth [place] 24 hr 00 daily. Medical tablet Branch metoprolol 2020-0 Yes [id number] 100mg Take 1 Univers succinate 3-21 tablet by ity o f XL 100 mg 00:00: mouth [place] 24 hr 00 daily. Medical tablet Branch metoprolol 2020-0 Yes [id number] 100mg Take 1 Univers succinate 3-21 tablet by ity o f XL 100 mg 00:00: mouth [place] 24 hr 00 daily. Medical tablet Branch metoprolol 2020-0 Yes [id number] 100mg Take 1 Univers succinate 3-21 tablet by ity o f XL 100 mg 00:00: mouth [place] 24 hr 00 daily. Medical tablet Branch metoprolol 2020-0 Yes [id number] 100mg Take 1 Univers succinate 3-21 tablet by ity o f XL 100 mg 00:00: mouth [place] 24 hr 00 daily. Medical tablet Branch metoprolol 2020-0 Yes [id number] 100mg Take 1 Univers succinate 3-21 tablet by ity o f XL 100 mg 00:00: mouth [place] 24 hr 00 daily. Medical tablet Branch metoprolol 2020-0 Yes [id number] 100mg Take 1 Univers succinate 3-21 tablet by ity o f XL 100 mg 00:00: mouth [place] 24 hr 00 daily. Medical tablet Branch metoprolol 2020-0 Yes [id number] 100mg Take 1 Univers succinate 3-21 tablet by ity o f XL 100 mg 00:00: mouth [place] 24 hr 00 daily. Medical tablet Branch metoprolol 2020-0 Yes [id number] 100mg Take 1 Univers succinate 3-21 tablet by ity o f XL 100 mg 00:00: mouth [place] 24 hr 00 daily. Medical tablet Branch metoprolol 2020-0 Yes [id number] 100mg Take 1 Univers succinate 3-21 tablet by ity o f XL 100 mg 00:00: mouth [place] 24 hr 00 daily. Medical tablet Branch metoprolol 2020-0 Yes [id number] 100mg Take 1 Univers succinate 3-21 tablet by ity o f XL 100 mg 00:00: mouth [place] 24 hr 00 daily. Medical tablet Branch metoprolol 2020-0 Yes [id number] 100mg Take 1 Univers succinate 3-21 tablet by ity o f XL 100 mg 00:00: mouth [place] 24 hr 00 daily. Medical tablet Branch metoprolol 2020-0 Yes [id number] 100mg Take 1 Univers succinate 3-21 tablet by ity o f XL 100 mg 00:00: mouth [place] 24 hr 00 daily. Medical tablet Branch metoprolol 2020-0 Yes [id number] 100mg Take 1 Univers succinate 3-21 tablet by ity o f XL 100 mg 00:00: mouth [place] 24 hr 00 daily. Medical tablet Branch metoprolol 2020-0 Yes [id number] 100mg Take 1 Univers succinate 3-21 tablet by ity o f XL 100 mg 00:00: mouth [place] 24 hr 00 daily. Medical tablet Branch metoprolol 2020-0 Yes [id number] 100mg Take 1 Univers succinate 3-21 tablet by ity o f XL 100 mg 00:00: mouth [place] 24 hr 00 daily. Medical tablet Branch metoprolol 2020-0 Yes [id number] 100mg Take 1 Univers succinate 3-21 tablet by ity o f XL 100 mg 00:00: mouth [place] 24 hr 00 daily. Medical tablet Branch metoprolol 2020-0 Yes [id number] 100mg Take 1 Univers succinate 3-21 tablet by ity o f XL 100 mg 00:00: mouth [place] 24 hr 00 daily. Medical tablet Branch metoprolol 2020-0 Yes [id number] 100mg Take 1 [facility] succinate 3-21 tablet by ity o f XL 100 mg 00:00: mouth [place] 24 hr 00 daily. Medical tablet Branch metoprolol 2020-0 Yes [id number] 100mg Take 1 Univers succinate 3-21 tablet by ity o f XL 100 mg 00:00: mouth [place] 24 hr 00 daily. Medical tablet Branch metoprolol 2020-0 Yes [id number] 100mg Take 1 Univers succinate 3-21 tablet by ity o f XL 100 mg 00:00: mouth [place] 24 hr 00 daily. Medical tablet Branch metoprolol 2020-0 Yes [id number] 100mg Take 1 Univers succinate 3-21 tablet by ity o f XL 100 mg 00:00: mouth [place] 24 hr 00 daily. Medical tablet Branch metoprolol 2020-0 Yes [id number] 100mg Take 1 [facility] succinate 3-21 tablet by ity o f XL 100 mg 00:00: mouth [place] 24 hr 00 daily. Medical tablet Branch metoprolol 2020-0 Yes [id number] 100mg Take 1 [facility] succinate 3-21 tablet by ity o f XL 100 mg 00:00: mouth [place] 24 hr 00 daily. Medical tablet Branch metoprolol 2020-0 Yes [id number] 100mg Take 1 Univers succinate 3-21 07 tablet by ity o f XL 100 mg 00:00: mouth [place] 24 hr 00 daily. Medical tablet Branch azithromyci 2020-0 Yes [id number] 250mg Take 1 Univers n 250 mg 3-21 07 tablet by ity of tablet 00:00: mouth [place] 00 daily. Medical Take 250 Branch mg tablet once daily metoprolol 2020-0 Yes [id number] 100mg Take 1 Univers succinate 3-21 07 tablet by ity o f XL 100 mg 00:00: mouth [place] 24 hr 00 daily. Medical tablet Branch azithromyci 2020-0 Yes [id number] 250mg Take 1 Univers n 250 mg 3-21 07 tablet by ity of tablet 00:00: mouth [place] 00 daily. Medical Take 250 Branch mg tablet once daily metoprolol 2020-0 2020- No [id number] 100mg Take 1 Univers succinate 3-21 01-11 tablet by ity of XL 100 mg 00:00: 00:00 mouth [place] 24 hr 00 :00 daily. Medical tablet Branch azithromyci 2020-0 2019- No [id number] 250mg Take 1 Univers n 250 mg 3-21 08-14 tablet by ity o f tablet 00:00: 00:00 mouth [place] 00 :00 daily. Medical Take 250 Branch mg tablet once daily azithromyci 2020-0 2019- No [id number] 250mg Take 1 Univers n 250 mg 3-21 08-14 tablet by ity o f tablet 00:00: 00:00 mouth [place] 00 :00 daily. Medical Take 250 Branch mg tablet once daily fluconazole 2020-0 2020- No 150mg 150 mg, U nivers (DIFLUCAN) 3-15 08-20 Oral, ONCE it y of tablet 150 17:45: 17:33 NOW, 1 [place] mg 00 :[place] dose, Fri Medical 08/16/19 at Branch 1245, TRANG
Re ason for Anti-Infec tive: Documented Infection< br>Documen anthony Infection Site: Pelvic
Duration of Therapy: Other (see Comments) aspirin 81 2020-0 Yes 81mg Take 1 Unive rs mg chewable 3-20 tablet by ity of tablet 16:51: mouth [place] 31 daily. [facility] aspirin 81 2020-0 Yes 81mg Take 1 Unive rs mg chewable 3-20 tablet by ity of tablet 16:51: mouth [place] 31 daily. [facility] aspirin 81 2020-0 Yes 81mg Take 1 Unive rs mg chewable 3-20 tablet by ity of tablet 16:51: mouth [place] 31 daily. [facility] aspirin 81 2020-0 Yes 81mg Take 1 Unive rs mg chewable 3-20 tablet by ity of tablet 16:51: mouth [place] 31 daily. [facility] aspirin 81 2020-0 Yes 81mg Take 1 Unive rs mg chewable 3-20 tablet by ity of tablet 16:51: mouth [place] 31 daily. [facility] aspirin 81 2020-0 Yes 81mg Take 1 Unive rs mg chewable 3-20 tablet by ity of tablet 16:51: mouth [place] 31 daily. [facility] aspirin 81 2020-0 Yes 81mg Take 1 Unive rs mg chewable 3-20 tablet by ity of tablet 16:51: mouth [place] 31 daily. [facility] aspirin 81 2020-0 Yes 81mg Take 1 Unive rs mg chewable 3-20 tablet by ity of tablet 16:51: mouth [place] 31 daily. [facility] aspirin 81 2020-0 Yes 81mg Take 1 Unive rs mg chewable 3-20 tablet by ity of tablet 16:51: mouth [place] 31 daily. [facility] aspirin 2020-0 2020- No 81mg Take 81 mg Uni vers (ASPIRIN 3-20 -20 by mouth ity of LOW DOSE) 16:51: 00:00 daily. [place] 81 mg EC 31 :00 Medical [facility] Branch LORazepam 2019-0 2020- No 1mg 1 mg, Univer s (ATIVAN) 3-20 - Oral, ity of tablet 1 mg 00:30: 23:58 ONCE, 1 [place] 00 :00 dose, [facility] 08/15/19 at Branch 1930, Routine clopidogreL 2019-0 Yes [id number] 75mg Take 1 Univers (PLAVIX) 75 3-20 tablet by ity of mg tablet 00:00: mouth [place] 00 daily. [facility] insulin NPH 2019-0 Yes [id number] Inject 84 Univers and regular 3-20 units AM, ity of human 70-30 00:00: 84 units [place] (NOVOLIN 00 PM Medical 70/30 U-100 [place] INSULIN) 100 unit/mL (70-30) injection atorvastati 2019-0 Yes [id number] 80mg Take 1 Univers n 80 mg 3-20 07 tablet by ity of tablet 00:00: mouth at [place] 00 bedtime. [facility] clopidogreL 2019-0 Yes [id number] 75mg Take 1 Univers (PLAVIX) 75 3-20 tablet by ity of mg tablet 00:00: mouth [place] daily. [facility] insulin NPH 2019-0 Yes [id number] Inject 84 Univers and regular 3-20 units AM, ity of human 70-30 00:00: 84 units [place] (NOVOLIN 00 PM Medical 70/30 U-100 [place] INSULIN) 100 unit/mL (70-30) injection atorvastati 2019-0 Yes [id number] 80mg Take 1 Univers n 80 mg 3-20 07 tablet by ity of tablet 00:00: mouth at [place] 00 bedtime. [facility] clopidogreL 2020-0 Yes [id number] 75mg Take 1 Univers (PLAVIX) 75 3-20 tablet by ity of mg tablet 00:00: mouth [place] 00 daily. [facility] insulin NPH 2019-0 Yes [id number] Inject 84 Univers and regular 3-20 units AM, ity of human 70-30 00:00: 84 units [place] (NOVOLIN 00 PM Medical 70/30 U-100 [place] INSULIN) 100 unit/mL (70-30) injection atorvastati 2019-0 Yes [id number] 80mg Take 1 Univers n 80 mg 3-20 07 tablet by ity of tablet 00:00: mouth at [place] bedtime. Medical Branch clopidogreL 2020-0 Yes [id number] 75mg Take 1 Univers (PLAVIX) 75 3-20 tablet by ity of mg tablet 00:00: mouth [place] 00 daily. [facility] Branch insulin NPH 2020-0 Yes [id number] Inject 84 Univers and regular 3-20 units AM, ity of human 7030 00:00: 84 units [place] (NOVOLIN 00 PM Medical 70/30 U-100 Branch INSULIN) 100 unit/mL (70-30) injection atorvastati 2020-0 Yes [id number] 80mg Take 1 Univers n 80 mg 3-20 07 tablet by ity of tablet 00:00: mouth at [place] 00 bedtime. [facility] Branch clopidogreL 2020-0 Yes [id number] 75mg Take 1 Univers (PLAVIX) 75 3-20 tablet by ity of mg tablet 00:00: mouth 00 daily. [facility] Branch insulin NPH 2019-0 Yes [id number] Inject 84 Univers and regular 3-20 units AM, ity of human 00:00: 84 units [place] (NOVOLIN 00 PM Medical 70/30 U-100 Branch INSULIN) 100 unit/mL (70-30) injection atorvastati 2020-0 Yes [id number] 80mg Take 1 Univers n 80 mg 3-20 07 tablet by ity of tablet 00:00: mouth at bedtime. [facility] clopidogreL 2020-0 Yes [id number] 75mg Take 1 Univers (PLAVIX) 75 3-20 tablet by ity of mg tablet 00:00: mouth daily. [facility] insulin NPH 2020-0 Yes [id number] Inject 84 Univers and regular 3-20 units AM, ity of human 7030 00:00: 84 units [place] (NOVOLIN 00 PM Medical 70/30 U-100 Branch INSULIN) 100 unit/mL (70-30) injection atorvastati 2020-0 Yes [id number] 80mg Take 1 Univers n 80 mg 3-20 07 tablet by ity of tablet 00:00: mouth at [place] 00 bedtime. [facility] clopidogreL 2020-0 Yes [id number] 75mg Take 1 Univers (PLAVIX) 75 3-20 tablet by ity of mg tablet 00:00: mouth [place] 00 daily. [facility] insulin NPH 2020-0 Yes [id number] Inject 84 [facility] and regular 3-20 units AM, ity of human 7030 00:00: 84 units [place] (NOVOLIN 00 PM Medical 70/30 U-100 Branch INSULIN) 100 unit/mL (70-30) injection atorvastati 2020-0 Yes [id number] 80mg Take 1 [facility] n 80 mg 3-20 07 tablet by ity of tablet 00:00: mouth at [place] 00 bedtime. [facility] clopidogreL 2020-0 Yes [id number] 75mg Take 1 [facility] (PLAVIX) 75 3-20 tablet by ity of mg tablet 00:00: mouth [place] 00 daily. [facility] insulin NPH 2019-0 Yes [id number] Inject 84 [facility] and regular 3-20 units AM, ity of human 7030 00:00: 84 units [place] (NOVOLIN 00 PM Medical 70/30 U-100 Branch INSULIN) 100 unit/mL (70-30) injection atorvastati 2019-0 Yes [id number] 80mg Take 1 [facility] n 80 mg 3-20 07 tablet by ity of tablet 00:00: mouth at [place] 00 bedtime. [facility] clopidogreL 2020-0 Yes [id number] 75mg Take 1 [facility] (PLAVIX) 75 3-20 tablet by ity of mg tablet 00:00: mouth [place] 00 daily. [facility] insulin NPH 2019-0 Yes [id number] Inject 84 [facility] and regular 3-20 units AM, ity of human 7030 00:00: 84 units [place] (NOVOLIN 00 PM Medical 70/30 U-100 Branch INSULIN) 100 unit/mL (70-30) injection atorvastati 2019-0 Yes [id number] 80mg Take 1 [facility] n 80 mg 3-20 07 tablet by ity of tablet 00:00: mouth at [place] 00 bedtime. [facility] clopidogreL 2020-0 Yes [id number] 75mg Take 1 [facility] (PLAVIX) 75 3-20 tablet by ity of mg tablet 00:00: mouth [place] 00 daily. [facility] insulin NPH 2019-0 Yes [id number] Inject 84 [facility] and regular 3-20 units AM, ity of human 70-30 00:00: 84 units [place] (NOVOLIN 00 PM Medical 70/30 U-100 Branch INSULIN) 100 unit/mL (70-30) injection atorvastati 2020-0 Yes [id number] 80mg Take 1 [facility] n 80 mg 3-20 07 tablet by ity of tablet 00:00: mouth at [place] 00 bedtime. [facility] clopidogreL 2020-0 Yes [id number] 75mg Take 1 [facility] (PLAVIX) 75 3-20 tablet by ity of mg tablet 00:00: mouth [place] 00 daily. [facility] insulin NPH 2020-0 Yes [id number] Inject 84 [facility] and regular 3-20 units AM, ity of human 70-30 00:00: 84 units [place] (NOVOLIN 00 PM Medical 70/30 U-100 Branch INSULIN) 100 unit/mL (70-30) injection atorvastati 2020-0 Yes [id number] 80mg Take 1 [facility] n 80 mg 3-20 07 tablet by ity of tablet 00:00: mouth at [place] 00 bedtime. [facility] clopidogreL 2020-0 Yes [id number] 75mg Take 1 [facility] (PLAVIX) 75 3-20 tablet by ity of mg tablet 00:00: mouth [place] 00 daily. [facility] insulin NPH 2019-0 Yes [id number] Inject 84 [facility] and regular 3-20 units AM, ity of human 00:00: 84 units [place] (NOVOLIN 00 PM Medical 70/30 U-100 Branch INSULIN) 100 unit/mL (70-30) injection atorvastati 2020-0 Yes [id number] 80mg Take 1 [facility] n 80 mg 3-20 07 tablet by ity of tablet 00:00: mouth at [place] 00 bedtime. [facility] clopidogreL 2020-0 Yes [id number] 75mg Take 1 [facility] (PLAVIX) 75 3-20 tablet by ity of mg tablet 00:00: mouth 00 daily. [facility] insulin NPH 2019-0 Yes [id number] Inject 84 [facility] and regular 3-20 units AM, ity of human 70-30 00:00: 84 units [place] (NOVOLIN 00 PM Medical 70/30 U-100 Branch INSULIN) 100 unit/mL (70-30) injection atorvastati 2020-0 Yes [id number] 80mg Take 1 [facility] n 80 mg 3-20 07 tablet by ity of tablet 00:00: mouth at [place] 00 bedtime. [facility] clopidogreL 2020-0 Yes [id number] 75mg Take 1 [facility] (PLAVIX) 75 3-20 tablet by ity of mg tablet 00:00: mouth [place] 00 daily. [facility] insulin NPH 2019-0 Yes [id number] Inject 84 [facility] and regular 3-20 units AM, ity of human 70-30 00:00: 84 units [place] (NOVOLIN 00 PM Medical 70/30 U-100 Branch INSULIN) 100 unit/mL (70-30) injection atorvastati 2020-0 Yes [id number] 80mg Take 1 [facility] n 80 mg 3-20 07 tablet by ity of tablet 00:00: mouth at [place] 00 bedtime. [facility] clopidogreL 2020-0 Yes [id number] 75mg Take 1 [facility] (PLAVIX) 75 3-20 tablet by ity of mg tablet 00:00: mouth [place] 00 daily. [facility] insulin NPH 2019-0 Yes [id number] Inject 84 [facility] and regular 3-20 units AM, ity of human 70 00:00: 84 units [place] (NOVOLIN 00 PM Medical 70/30 U-100 Branch INSULIN) 100 unit/mL (70-30) injection atorvastati 2019-0 Yes [id number] 80mg Take 1 [facility] n 80 mg 3-20 tablet by ity of tablet 00:00: mouth at [place] 00 bedtime. [facility] clopidogreL 2019-0 Yes [id number] 75mg Take 1 [facility] (PLAVIX) 75 3-20 tablet by ity of mg tablet 00:00: mouth daily. [facility] insulin NPH 2019-0 Yes [id number] Inject 84 [facility] and regular 3-20 units AM, ity of human 7030 00:00: 84 units [place] (NOVOLIN 00 PM Medical 70/30 U-100 Branch INSULIN) 100 unit/mL (70-30) injection atorvastati 2019-0 Yes [id number] 80mg Take 1 [facility] n 80 mg 3-20 tablet by ity of tablet 00:00: mouth at [place] 00 bedtime. [facility] clopidogreL 2020-0 Yes [id number] 75mg Take 1 [facility] (PLAVIX) 75 3-20 tablet by ity of mg tablet 00:00: mouth 00 daily. [facility] insulin NPH 2019-0 Yes [id number] Inject 84 [facility] and regular 3-20 units AM, ity of human 70-30 00:00: 84 units [place] (NOVOLIN 00 PM Medical 70/30 U-100 Branch INSULIN) 100 unit/mL (70-30) injection atorvastati 2020-0 Yes [id number] 80mg Take 1 [facility] n 80 mg 3-20 tablet by ity of tablet 00:00: mouth at [place] 00 bedtime. [facility] clopidogreL 2020-0 Yes [id number] 75mg Take 1 [facility] (PLAVIX) 75 3-20 tablet by ity of mg tablet 00:00: mouth [place] 00 daily. [facility] insulin NPH 2020-0 Yes [id number] Inject 84 [facility] and regular 3-20 units AM, ity of human 7030 00:00: 84 units [place] (NOVOLIN 00 PM Medical 70/30 U-100 Branch INSULIN) 100 unit/mL (70-30) injection atorvastati 2020-0 Yes [id number] 80mg Take 1 [facility] n 80 mg 3-20 tablet by ity of tablet 00:00: mouth at [place] 00 bedtime. [facility] clopidogreL 2020-0 Yes [id number] 75mg Take 1 [facility] (PLAVIX) 75 3-20 tablet by ity of mg tablet 00:00: mouth 00 daily. [facility] insulin NPH 2020-0 Yes [id number] Inject 84 [facility] and regular 3-20 units AM, ity of human 70 00:00: 84 units [place] (NOVOLIN 00 PM Medical 70/30 U-100 Branch INSULIN) 100 unit/mL (70-30) injection atorvastati 2020-0 Yes [id number] 80mg Take 1 [facility] n 80 mg 3-20 tablet by ity of tablet 00:00: mouth at [place] 00 bedtime. [facility] clopidogreL 2020-0 Yes [id number] 75mg Take 1 [facility] (PLAVIX) 75 3-20 tablet by ity of mg tablet 00:00: mouth daily. [facility] insulin NPH 2020-0 Yes [id number] Inject 84 [facility] and regular 3-20 units AM, ity of human 7030 00:00: 84 units [place] (NOVOLIN 00 PM Medical 70/30 U-100 Branch INSULIN) 100 unit/mL (70-30) injection atorvastati 2020-0 Yes [id number] 80mg Take 1 [facility] n 80 mg 3-20 tablet by ity of tablet 00:00: mouth at [place] 00 bedtime. [facility] clopidogreL 2020-0 Yes [id number] 75mg Take 1 [facility] (PLAVIX) 75 3-20 tablet by ity of mg tablet 00:00: mouth 00 daily. [facility] insulin NPH 2020-0 Yes [id number] Inject 84 [facility] and regular 3-20 units AM, ity of human 70-30 00:00: 84 units [place] (NOVOLIN 00 PM Medical 70/30 U-100 Branch INSULIN) 100 unit/mL (70-30) injection atorvastati 2020-0 Yes [id number] 80mg Take 1 [facility] n 80 mg 3-20 tablet by ity of tablet 00:00: mouth at [place] 00 bedtime. [facility] clopidogreL 2020-0 Yes [id number] 75mg Take 1 [facility] (PLAVIX) 75 3-20 tablet by ity of mg tablet 00:00: mouth [place] 00 daily. [facility] insulin NPH 2019-0 Yes [id number] Inject 84 [facility] and regular 3-20 units AM, ity of human 7030 00:00: 84 units [place] (NOVOLIN 00 PM Medical 70/30 U-100 Branch INSULIN) 100 unit/mL (70-30) injection atorvastati 2019-0 Yes [id number] 80mg Take 1 [facility] n 80 mg 3-20 tablet by ity of tablet 00:00: mouth at [place] 00 bedtime. [facility] clopidogreL 2020-0 Yes [id number] 75mg Take 1 [facility] (PLAVIX) 75 3-20 tablet by ity of mg tablet 00:00: mouth 00 daily. [facility] insulin NPH 2020-0 Yes [id number] Inject 84 [facility] and regular 3-20 units AM, ity of human 70-30 00:00: 84 units [place] (NOVOLIN 00 PM Medical 70/30 U-100 Branch INSULIN) 100 unit/mL (70-30) injection atorvastati 2020-0 Yes [id number] 80mg Take 1 [facility] n 80 mg 3-20 tablet by ity of tablet 00:00: mouth at [place] 00 bedtime. [facility] clopidogreL 2020-0 Yes [id number] 75mg Take 1 [facility] (PLAVIX) 75 3-20 tablet by ity of mg tablet 00:00: mouth [place] 00 daily. [facility] insulin NPH 2020-0 Yes [id number] Inject 84 [facility] and regular 3-20 units AM, ity of human 70-30 00:00: 84 units [place] (NOVOLIN 00 PM Medical 70/30 U-100 Branch INSULIN) 100 unit/mL (70-30) injection atorvastati 2020-0 Yes [id number] 80mg Take 1 [facility] n 80 mg 3-20 tablet by ity of tablet 00:00: mouth at [place] 00 bedtime. [facility] clopidogreL 2020-0 Yes [id number] 75mg Take 1 [facility] (PLAVIX) 75 3-20 tablet by ity of mg tablet 00:00: mouth [place] 00 daily. [facility] insulin NPH 2020-0 Yes [id number] Inject 84 [facility] and regular 3-20 units AM, ity of human 7030 00:00: 84 units [place] (NOVOLIN 00 PM Medical 70/30 U-100 Branch INSULIN) 100 unit/mL (70-30) injection atorvastati 2020-0 Yes [id number] 80mg Take 1 [facility] n 80 mg 3-20 tablet by ity of tablet 00:00: mouth at 00 bedtime. [facility] clopidogreL 2020-0 Yes [id number] 75mg Take 1 [facility] (PLAVIX) 75 3-20 tablet by ity of mg tablet 00:00: mouth 00 daily. [facility] insulin NPH 2020-0 Yes [id number] Inject 84 [facility] and regular 3-20 units AM, ity of human 7030 00:00: 84 units [place] (NOVOLIN 00 PM Medical 70/30 U-100 Branch INSULIN) 100 unit/mL (70-30) injection atorvastati 2020-0 Yes [id number] 80mg Take 1 [facility] n 80 mg 3-20 tablet by ity of tablet 00:00: mouth at 00 bedtime. [facility] clopidogreL 2020-0 Yes [id number] 75mg Take 1 [facility] (PLAVIX) 75 3-20 tablet by ity of mg tablet 00:00: mouth daily. [facility] insulin NPH 2020-0 Yes [id number] Inject 84 [facility] and regular 3-20 units AM, ity of human 7030 00:00: 84 units [place] (NOVOLIN 00 PM Medical 70/30 U-100 Branch INSULIN) 100 unit/mL (70-30) injection atorvastati 2020-0 Yes [id number] 80mg Take 1 [facility] n 80 mg 3-20 tablet by ity of tablet 00:00: mouth at 00 bedtime. [facility] clopidogreL 2020-0 Yes [id number] 75mg Take 1 [facility] (PLAVIX) 75 3-20 tablet by ity of mg tablet 00:00: mouth 00 daily. [facility] insulin NPH 2020-0 Yes [id number] Inject 84 [facility] and regular 3-20 units AM, ity of human 70-30 00:00: 84 units [place] (NOVOLIN 00 PM Medical 70/30 U-100 Branch INSULIN) 100 unit/mL (70-30) injection atorvastati 2020-0 Yes [id number] 80mg Take 1 [facility] n 80 mg 3-20 tablet by ity of tablet 00:00: mouth at [place] 00 bedtime. [facility] clopidogreL 2020-0 Yes [id number] 75mg Take 1 [facility] (PLAVIX) 75 3-20 tablet by ity of mg tablet 00:00: mouth [place] 00 daily. [facility] insulin NPH 2020-0 Yes [id number] Inject 84 [facility] and regular 3-20 units AM, ity of human 7030 00:00: 84 units [place] (NOVOLIN 00 PM Medical 70/30 U-100 Branch INSULIN) 100 unit/mL (70-30) injection atorvastati 2019-0 Yes [id number] 80mg Take 1 [facility] n 80 mg 3-20 tablet by ity of tablet 00:00: mouth at [place] 00 bedtime. [facility] clopidogreL 2020-0 Yes [id number] 75mg Take 1 [facility] (PLAVIX) 75 3-20 tablet by ity of mg tablet 00:00: mouth 00 daily. [facility] insulin NPH 2020-0 Yes [id number] Inject 84 [facility] and regular 3-20 units AM, ity of human 70-30 00:00: 84 units [place] (NOVOLIN 00 PM Medical 70/30 U-100 Branch INSULIN) 100 unit/mL (70-30) injection atorvastati 2020-0 Yes [id number] 80mg Take 1 [facility] n 80 mg 3-20 tablet by ity of tablet 00:00: mouth at [place] 00 bedtime. [facility] clopidogreL 2020-0 Yes [id number] 75mg Take 1 [facility] (PLAVIX) 75 3-20 tablet by ity of mg tablet 00:00: mouth [place] 00 daily. [facility] insulin NPH 2020-0 Yes [id number] Inject 84 [facility] and regular 3-20 units AM, ity of human 70-30 00:00: 84 units [place] (NOVOLIN 00 PM Medical 70/30 U-100 Branch INSULIN) 100 unit/mL (70-30) injection atorvastati 2020-0 Yes [id number] 80mg Take 1 [facility] n 80 mg 3-20 tablet by ity of tablet 00:00: mouth at [place] 00 bedtime. [facility] clopidogreL 2020-0 Yes [id number] 75mg Take 1 [facility] (PLAVIX) 75 3-20 tablet by ity of mg tablet 00:00: mouth [place] 00 daily. [facility] insulin NPH 2020-0 Yes [id number] Inject 84 [facility] and regular 3-20 units AM, ity of human 7030 00:00: 84 units [place] (NOVOLIN 00 PM Medical 70/30 U-100 Branch INSULIN) 100 unit/mL (70-30) injection atorvastati 2020-0 Yes [id number] 80mg Take 1 [facility] n 80 mg 3-20 tablet by ity of tablet 00:00: mouth at 00 bedtime. [facility] clopidogreL 2020-0 Yes [id number] 75mg Take 1 [facility] (PLAVIX) 75 3-20 tablet by ity of mg tablet 00:00: mouth 00 daily. [facility] insulin NPH 2019-0 Yes [id number] Inject 84 [facility] and regular 3-20 units AM, ity of human 7030 00:00: 84 units [place] (NOVOLIN 00 PM Medical 70/30 U-100 Branch INSULIN) 100 unit/mL (70-30) injection atorvastati 2020-0 Yes [id number] 80mg Take 1 [facility] n 80 mg 3-20 tablet by ity of tablet 00:00: mouth at 00 bedtime. [facility] clopidogreL 2020-0 Yes [id number] 75mg Take 1 [facility] (PLAVIX) 75 3-20 tablet by ity of mg tablet 00:00: mouth daily. [facility] insulin NPH 2020-0 Yes [id number] Inject 84 [facility] and regular 3-20 units AM, ity of human 70-30 00:00: 84 units [place] (NOVOLIN 00 PM Medical 70/30 U-100 Branch INSULIN) 100 unit/mL (70-30) injection atorvastati 2020-0 Yes [id number] 80mg Take 1 [facility] n 80 mg 3-20 tablet by ity of tablet 00:00: mouth at 00 bedtime. [facility] clopidogreL 2020-0 Yes [id number] 75mg Take 1 [facility] (PLAVIX) 75 3-20 tablet by ity of mg tablet 00:00: mouth 00 daily. [facility] insulin NPH 2020-0 Yes [id number] Inject 84 [facility] and regular 3-20 units AM, ity of human 70-30 00:00: 84 units [place] (NOVOLIN 00 PM Medical 70/30 U-100 Branch INSULIN) 100 unit/mL (70-30) injection atorvastati 2020-0 Yes [id number] 80mg Take 1 [facility] n 80 mg 3-20 tablet by ity of tablet 00:00: mouth at [place] 00 bedtime. [facility] clopidogreL 2020-0 Yes [id number] 75mg Take 1 [facility] (PLAVIX) 75 3-20 tablet by ity of mg tablet 00:00: mouth [place] 00 daily. [facility] insulin NPH 2019-0 Yes [id number] Inject 84 [facility] and regular 3-20 units AM, ity of human 7030 00:00: 84 units [place] (NOVOLIN 00 PM Medical 70/30 U-100 Branch INSULIN) 100 unit/mL (70-30) injection atorvastati 2019-0 Yes [id number] 80mg Take 1 [facility] n 80 mg 3-20 tablet by ity of tablet 00:00: mouth at [place] 00 bedtime. [facility] clopidogreL 2020-0 Yes [id number] 75mg Take 1 [facility] (PLAVIX) 75 3-20 tablet by ity of mg tablet 00:00: mouth [place] 00 daily. [facility] insulin NPH 2019-0 Yes [id number] Inject 84 [facility] and regular 3-20 units AM, ity of human 70-30 00:00: 84 units [place] (NOVOLIN 00 PM Medical 70/30 U-100 Branch INSULIN) 100 unit/mL (70-30) injection atorvastati 2020-0 Yes [id number] 80mg Take 1 [facility] n 80 mg 3-20 tablet by ity of tablet 00:00: mouth at [place] 00 bedtime. [facility] clopidogreL 2020-0 Yes [id number] 75mg Take 1 [facility] (PLAVIX) 75 3-20 tablet by ity of mg tablet 00:00: mouth [place] 00 daily. [facility] insulin NPH 2020-0 Yes [id number] Inject 84 [facility] and regular 3-20 units AM, ity of human 70-30 00:00: 84 units [place] (NOVOLIN 00 PM Medical 70/30 U-100 Branch INSULIN) 100 unit/mL (70-30) injection atorvastati 2020-0 Yes [id number] 80mg Take 1 [facility] n 80 mg 3-20 tablet by ity of tablet 00:00: mouth at [place] 00 bedtime. [facility] clopidogreL 2020-0 Yes [id number] 75mg Take 1 [facility] (PLAVIX) 75 3-20 tablet by ity of mg tablet 00:00: mouth [place] 00 daily. [facility] insulin NPH 2020-0 Yes [id number] Inject 84 [facility] and regular 3-20 units AM, ity of human 7030 00:00: 84 units [place] (NOVOLIN 00 PM Medical 70/30 U-100 Branch INSULIN) 100 unit/mL (70-30) injection atorvastati 2020-0 Yes [id number] 80mg Take 1 [facility] n 80 mg 3-20 tablet by ity of tablet 00:00: mouth at 00 bedtime. [facility] clopidogreL 2020-0 Yes [id number] 75mg Take 1 [facility] (PLAVIX) 75 3-20 tablet by ity of mg tablet 00:00: mouth 00 daily. [facility] insulin NPH 2019-0 Yes [id number] Inject 84 [facility] and regular 3-20 units AM, ity of human 7030 00:00: 84 units [place] (NOVOLIN 00 PM Medical 70/30 U-100 Branch INSULIN) 100 unit/mL (70-30) injection atorvastati 2020-0 Yes [id number] 80mg Take 1 [facility] n 80 mg 3-20 tablet by ity of tablet 00:00: mouth at 00 bedtime. [facility] clopidogreL 2020-0 Yes [id number] 75mg Take 1 [facility] (PLAVIX) 75 3-20 tablet by ity of mg tablet 00:00: mouth daily. [facility] insulin NPH 2020-0 Yes [id number] Inject 84 [facility] and regular 3-20 units AM, ity of human 7030 00:00: 84 units [place] (NOVOLIN 00 PM Medical 70/30 U-100 Branch INSULIN) 100 unit/mL (70-30) injection atorvastati 2020-0 Yes [id number] 80mg Take 1 [facility] n 80 mg 3-20 tablet by ity of tablet 00:00: mouth at 00 bedtime. [facility] clopidogreL 2020-0 Yes [id number] 75mg Take 1 [facility] (PLAVIX) 75 3-20 tablet by ity of mg tablet 00:00: mouth 00 daily. [facility] insulin NPH 2020-0 Yes [id number] Inject 84 [facility] and regular 3-20 units AM, ity of human 70-30 00:00: 84 units [place] (NOVOLIN 00 PM Medical 70/30 U-100 Branch INSULIN) 100 unit/mL (70-30) injection atorvastati 2020-0 Yes [id number] 80mg Take 1 [facility] n 80 mg 3-20 tablet by ity of tablet 00:00: mouth at [place] 00 bedtime. [facility] clopidogreL 2020-0 Yes [id number] 75mg Take 1 [facility] (PLAVIX) 75 3-20 tablet by ity of mg tablet 00:00: mouth [place] 00 daily. [facility] insulin NPH 2019-0 Yes [id number] Inject 84 [facility] and regular 3-20 units AM, ity of human 7030 00:00: 84 units [place] (NOVOLIN 00 PM Medical 70/30 U-100 Branch INSULIN) 100 unit/mL (70-30) injection atorvastati 2019-0 Yes [id number] 80mg Take 1 [facility] n 80 mg 3-20 tablet by ity of tablet 00:00: mouth at [place] 00 bedtime. [facility] clopidogreL 2020-0 Yes [id number] 75mg Take 1 [facility] (PLAVIX) 75 3-20 tablet by ity of mg tablet 00:00: mouth [place] 00 daily. [facility] insulin NPH 2020-0 Yes [id number] Inject 84 [facility] and regular 3-20 units AM, ity of human 70-30 00:00: 84 units [place] (NOVOLIN 00 PM Medical 70/30 U-100 Branch INSULIN) 100 unit/mL (70-30) injection atorvastati 2020-0 Yes [id number] 80mg Take 1 [facility] n 80 mg 3-20 tablet by ity of tablet 00:00: mouth at [place] 00 bedtime. [facility] clopidogreL 2020-0 Yes [id number] 75mg Take 1 [facility] (PLAVIX) 75 3-20 tablet by ity of mg tablet 00:00: mouth [place] 00 daily. [facility] insulin NPH 2020-0 Yes [id number] Inject 84 [facility] and regular 3-20 units AM, ity of human 7030 00:00: 84 units [place] (NOVOLIN 00 PM Medical 70/30 U-100 Branch INSULIN) 100 unit/mL (70-30) injection atorvastati 2020-0 Yes [id number] 80mg Take 1 [facility] n 80 mg 3-20 tablet by ity of tablet 00:00: mouth at [place] 00 bedtime. [facility] clopidogreL 2020-0 Yes [id number] 75mg Take 1 [facility] (PLAVIX) 75 3-20 tablet by ity of mg tablet 00:00: mouth [place] 00 daily. [facility] insulin NPH 2020-0 Yes [id number] Inject 84 [facility] and regular 3-20 units AM, ity of human 7030 00:00: 84 units [place] (NOVOLIN 00 PM Medical 70/30 U-100 Branch INSULIN) 100 unit/mL (70-30) injection atorvastati 2020-0 Yes [id number] 80mg Take 1 [facility] n 80 mg 3-20 tablet by ity of tablet 00:00: mouth at [place] 00 bedtime. [facility] clopidogreL 2020-0 Yes [id number] 75mg Take 1 [facility] (PLAVIX) 75 3-20 tablet by ity of mg tablet 00:00: mouth 00 daily. [facility] insulin NPH 2019-0 Yes [id number] Inject 84 [facility] and regular 3-20 units AM, ity of human 7030 00:00: 84 units [place] (NOVOLIN 00 PM Medical 70/30 U-100 Branch INSULIN) 100 unit/mL (70-30) injection atorvastati 2019-0 Yes [id number] 80mg Take 1 [facility] n 80 mg 3-20 tablet by ity of tablet 00:00: mouth at [place] 00 bedtime. [facility] clopidogreL 2020-0 Yes [id number] 75mg Take 1 [facility] (PLAVIX) 75 3-20 tablet by ity of mg tablet 00:00: mouth daily. [facility] insulin NPH 2019-0 Yes [id number] Inject 84 [facility] and regular 3-20 units AM, ity of human 70-30 00:00: 84 units [place] (NOVOLIN 00 PM Medical 70/30 U-100 Branch INSULIN) 100 unit/mL (70-30) injection atorvastati 2020-0 Yes [id number] 80mg Take 1 [facility] n 80 mg 3-20 tablet by ity of tablet 00:00: mouth at [place] 00 bedtime. [facility] clopidogreL 2020-0 Yes [id number] 75mg Take 1 [facility] (PLAVIX) 75 3-20 tablet by ity of mg tablet 00:00: mouth [place] 00 daily. [facility] insulin NPH 2020-0 Yes [id number] Inject 84 [facility] and regular 3-20 units AM, ity of human 70-30 00:00: 84 units [place] (NOVOLIN 00 PM Medical 70/30 U-100 Branch INSULIN) 100 unit/mL (70-30) injection atorvastati 2020-0 Yes [id number] 80mg Take 1 [facility] n 80 mg 3-20 tablet by ity of tablet 00:00: mouth at [place] 00 bedtime. [facility] clopidogreL 2020-0 Yes [id number] 75mg Take 1 [facility] (PLAVIX) 75 3-20 tablet by ity of mg tablet 00:00: mouth [place] 00 daily. [facility] insulin NPH 2019-0 Yes [id number] Inject 84 [facility] and regular 3-20 units AM, ity of human 7030 00:00: 84 units [place] (NOVOLIN 00 PM Medical 70/30 U-100 Branch INSULIN) 100 unit/mL (70-30) injection atorvastati 2020-0 Yes [id number] 80mg Take 1 [facility] n 80 mg 3-20 tablet by ity of tablet 00:00: mouth at [place] 00 bedtime. [facility] clopidogreL 2020-0 Yes [id number] 75mg Take 1 [facility] (PLAVIX) 75 3-20 tablet by ity of mg tablet 00:00: mouth 00 daily. [facility] insulin NPH 2019-0 Yes [id number] Inject 84 [facility] and regular 3-20 units AM, ity of human 70-30 00:00: 84 units [place] (NOVOLIN 00 PM Medical 70/30 U-100 Branch INSULIN) 100 unit/mL (70-30) injection atorvastati 2020-0 Yes [id number] 80mg Take 1 [facility] n 80 mg 3-20 tablet by ity of tablet 00:00: mouth at [place] 00 bedtime. [facility] clopidogreL 2020-0 Yes [id number] 75mg Take 1 [facility] (PLAVIX) 75 3-20 tablet by ity of mg tablet 00:00: mouth [place] 00 daily. [facility] insulin NPH 2020-0 Yes [id number] Inject 84 [facility] and regular 3-20 units AM, ity of human 7030 00:00: 84 units [place] (NOVOLIN 00 PM Medical 70/30 U-100 Branch INSULIN) 100 unit/mL (70-30) injection atorvastati 2020-0 Yes [id number] 80mg Take 1 [facility] n 80 mg 3-20 tablet by ity of tablet 00:00: mouth at [place] 00 bedtime. [facility] clopidogreL 2020-0 Yes [id number] 75mg Take 1 [facility] (PLAVIX) 75 3-20 tablet by ity of mg tablet 00:00: mouth [place] 00 daily. [facility] insulin NPH 2020-0 Yes [id number] Inject 84 [facility] and regular 3-20 units AM, ity of human 70-30 00:00: 84 units [place] (NOVOLIN 00 PM Medical 70/30 U-100 Branch INSULIN) 100 unit/mL (70-30) injection atorvastati 2020-0 Yes [id number] 80mg Take 1 [facility] n 80 mg 3-20 tablet by ity of tablet 00:00: mouth at [place] bedtime. [facility] clopidogreL 2020-0 Yes [id number] 75mg Take 1 [facility] (PLAVIX) 75 3-20 tablet by ity of mg tablet 00:00: mouth 00 daily. [facility] atorvastati 2020-0 Yes [id number] 80mg Take 1 [facility] n 80 mg 3-20 tablet by ity of tablet 00:00: mouth at [place] bedtime. [facility] clopidogreL 2020-0 Yes [id number] 75mg Take 1 [facility] (PLAVIX) 75 3-20 tablet by ity of mg tablet 00:00: mouth [place] 00 daily. [facility] atorvastati 2020-0 Yes [id number] 80mg Take 1 [facility] n 80 mg 3-20 tablet by ity of tablet 00:00: mouth at [place] bedtime. [facility] clopidogreL 2020-0 Yes [id number] 75mg Take 1 [facility] (PLAVIX) 75 3-20 tablet by ity of mg tablet 00:00: mouth [place] 00 daily. [facility] atorvastati 2020-0 Yes [id number] 80mg Take 1 [facility] n 80 mg 3-20 tablet by ity of tablet 00:00: mouth at [place] bedtime. [facility] clopidogreL 2020-0 Yes [id number] 75mg Take 1 [facility] (PLAVIX) 75 3-20 tablet by ity of mg tablet 00:00: mouth [place] 00 daily. [facility] atorvastati 2020-0 Yes [id number] 80mg Take 1 [facility] n 80 mg 3-20 tablet by ity of tablet 00:00: mouth at [place] 00 bedtime. [facility] clopidogreL 2020-0 Yes [id number] 75mg Take 1 [facility] (PLAVIX) 75 3-20 tablet by ity of mg tablet 00:00: mouth [place] 00 daily. [facility] atorvastati 2020-0 Yes [id number] 80mg Take 1 [facility] n 80 mg 3-20 tablet by ity of tablet 00:00: mouth at [place] 00 bedtime. [facility] clopidogreL 2020-0 Yes [id number] 75mg Take 1 [facility] (PLAVIX) 75 3-20 tablet by ity of mg tablet 00:00: mouth [place] 00 daily. [facility] Branch clopidogreL 2020-0 Yes [id number] 75mg Take 1 [facility] (PLAVIX) 75 3-20 tablet by ity of mg tablet 00:00: mouth [place] 00 daily. [facility] clopidogreL 2020-0 Yes [id number] 75mg Take 1 [facility] (PLAVIX) 75 3-20 tablet by ity of mg tablet 00:00: mouth [place] 00 daily. [facility] Branch clopidogreL 2020-0 Yes [id number] 75mg Take 1 [facility] (PLAVIX) 75 3-20 tablet by ity of mg tablet 00:00: mouth [place] 00 daily. [facility] clopidogreL 2020-0 Yes [id number] 75mg Take 1 [facility] (PLAVIX) 75 3-20 tablet by ity of mg tablet 00:00: mouth [place] 00 daily. [facility] clopidogreL 2020-0 Yes [id number] 75mg Take 1 [facility] (PLAVIX) 75 3-20 tablet by ity of mg tablet 00:00: mouth [place] 00 daily. [facility] Branch clopidogreL 2020-0 Yes [id number] 75mg Take 1 [facility] (PLAVIX) 75 3-20 tablet by ity of mg tablet 00:00: mouth [place] 00 daily. [facility] clopidogreL 2020-0 Yes [id number] 75mg Take 1 [facility] (PLAVIX) 75 3-20 tablet by ity of mg tablet 00:00: mouth [place] 00 daily. [facility] clopidogreL 2020-0 Yes [id number] 75mg Take 1 [facility] (PLAVIX) 75 3-20 tablet by ity of mg tablet 00:00: mouth [place] 00 daily. [facility] clopidogreL 2020-0 Yes [id number] 75mg Take 1 [facility] (PLAVIX) 75 3-20 tablet by ity of mg tablet 00:00: mouth [place] 00 daily. [facility] clopidogreL 2020-0 Yes [id number] 75mg Take 1 [facility] (PLAVIX) 75 3-20 tablet by ity of mg tablet 00:00: mouth [place] 00 daily. [facility] clopidogreL 2020-0 Yes [id number] 75mg Take 1 [facility] (PLAVIX) 75 3-20 tablet by ity of mg tablet 00:00: mouth [place] 00 daily. Medical Branch clopidogreL 2020-0 Yes [id number] 75mg Take 1 [facility] (PLAVIX) 75 3-20 tablet by ity of mg tablet 00:00: mouth [place] 00 daily. Medical Branch insulin NPH 2020-0 Yes [id number] Inject 84 [facility] and regular 3-20 units AM, ity of human 70-30 00:00: 84 units [place] (NOVOLIN 00 PM Medical 70/30 U-100 Branch INSULIN) 100 unit/mL (70-30) injection atorvastati Yes [id number] 80mg Take 1 [facility] n 80 mg 3-20 07 tablet by ity of tablet 00:00: mouth at [place] 00 bedtime. Medical Branch clopidogreL Yes [id number] 75mg Take 1 [facility] (PLAVIX) 75 3-20 tablet by ity of mg tablet 00:00: mouth [place] 00 daily. Medical Branch insulin NPH Yes [id number] Inject 84 [facility] and regular 3-20 units AM, ity of human 70-30 00:00: 84 units [place] (NOVOLIN 00 PM Medical 70/30 U-100 Branch INSULIN) 100 unit/mL (70-30) injection atorvastati Yes [id number] 80mg Take 1 [facility] n 80 mg 3-20 07 tablet by ity of tablet 00:00: mouth at [place] 00 bedtime. Medical Branch clopidogreL 2020-0 Yes H/O right 75mg Take 1 [facility] (PLAVIX) 75 3-20 coronary tablet by ity of mg tablet 00:00: artery mouth [place] 00 stent daily. Medical placement Branch clopidogreL 2020-0 Yes H/O right 75mg Take 1 [facility] (PLAVIX) 75 3-20 coronary tablet by ity of mg tablet 00:00: artery mouth [place] 00 stent daily. Medical placement Branch clopidogreL 2020-2020- No [id number] 75mg Take 1 [facility] (PLAVIX) 75 3-20 07-06 tablet by it y of mg tablet 00:00: 00:00 mouth [place] 00 :00 daily. Medical Branch atorvastati 2019-2020- No [id number] 80mg Take 1 [facility] n 80 mg 3-20 05-06 tablet by ity of tablet 00:00: 00:00 mouth at [place] 00 :00 bedtime. Medical Branch atorvastati 2020- No [id number] 80mg Take 1 [facility] n 80 mg 3-20 05-06 tablet by ity of tablet 00:00: 00:00 mouth at [place] 00 :00 bedtime. Medical Branch atorvastati 2020- No Coronary 80mg Take 1 [facility] n 80 mg 3-20 05-06 artery tablet by ity of tablet 00:00: 00:00 disease mouth at [place] 00 :00 involving bedtime. [facility]ica [facility] [place] [facility] coronary artery of [place] heart without angina pectoris atorvastati 2020- No Coronary 80mg Take 1 [facility] n 80 mg 3-20 05-06 artery tablet by ity of tablet 00:00: 00:00 disease mouth at [place] 00 :00 involving bedtime. [facility]ica [facility] [place] [facility] coronary artery of [place] heart without angina pectoris insulin NPH 2020- No [id number] Inject 84 [facility] and regular 3-20 04-12 units AM, it y of human 70-30 00:00: 00:00 84 units [place] (NOVOLIN 00 :00 PM Medical 70/30 U-100 Branch INSULIN) 100 unit/mL (70-30) injection NaCl 0.9% 2019- No 500mL at 50 Unive rs (NS) IV 08-14 03-20 mL/hr, IV ity of infusion 19:00: 04:44 Infusion, [place] 500 mL 00 :00 CONTINUOUS Medical , Starting Branch [place] 08/15/19 at 1400, Until [place] 08/15/19 at 2344, Routine morpHINE 2019- No 4mg 4 mg, Slow [facility] injection 4 08-14-19 IV Push, ity of mg 18:45: 17:57 ONCE, 1 [place] 00 :00 dose, [place] Medical 08/15/19 at Branch 1345, Routine insulin 2019-0 Yes 34U 34 Units, Unive rs glargine 3- Subcutaneo ity o f (LANTUS 17:00: us, BID, [place] U-100) 00 First dose Medical injection on [place] Branch 34 Units 08/15/19 at 1200, Until Discontinu ed, Routine insulin 2020-0 Yes 30U 30 Units, Unive rs aspart 08-14 Subcutaneo ity of RAPID 17:00: us, TID [place] (NOVOLOG) 00 MEALS, Medical injection First dose Bran ch 30 Units on [place] 08/15/19 at 1200, Until Discontinu ed, Routine Sliding 2019- Yes Subcutaneo Univ ers Scale 3-19 us, Q3H, ity of Insulin - 16:45: First dose [place] Aspart 00 on [place] Medical (NOVOLOG) + 08/15/[address] [facility] Fsbg 1145, Testing Until Discontinu ed, Routine heparin 2019- No Slow IV Univer s 1,000 08-14 Push, ity of unit/mL 15:42: 15:42 TITRATE - [place] injection 09 :09 FOR Medical PROCEDURE Branch USE, 1 dose, Starting [place] 08/15/19 at 1042, Until [place] 08/15/19 at 1042, Routine ticagrelor 2019- No Oral, Unive rs (BRILINTA) 08-14 TITRATE - ity of tablet 15:40: 15:40 FOR [place] 32 :32 PROCEDURE Medical USE, 1 Branch dose, Starting [place] 08/15/19 at 1040, Until [place] 08/15/19 at 1040, Routine FENTanyl PF 2019- No Slow IV [facility] (SUBLIMAZE 08-14 Push, ity of (PF)) 15:40: 15:40 TITRATE - [place] injection 16 :16 FOR Medical PROCEDURE Branch USE, 1 dose, Starting [place] 08/15/19 at 1040, Until [place] 08/15/19 at 1040, Routine heparin 2019- No Slow IV Univer s 1,000 08-14 Push, ity of unit/mL 14:45: 14:45 TITRATE - [place] injection 11 :11 FOR Medical PROCEDURE Branch USE, 1 dose, Starting [place] 08/15/19 at 0945, Until [place] 08/15/19 at 0945, Routine FENTanyl PF 2019- No Slow IV [place] (SUBLIMAZE 08-14 Push, ity of (PF)) 14:41: 14:41 TITRATE - [place] injection 26 :26 FOR Medical PROCEDURE Branch USE, 1 dose, Starting [place] 08/15/19 at 0941, Until [place] 08/15/19 at 0941, Routine heparin 2019- No Slow IV Univer s 1,000 08-14 Push, ity of unit/mL 14:27: 14:27 TITRATE - [place] injection 23 :23 FOR Medical PROCEDURE Branch USE, 1 dose, Starting [place] 08/15/19 at 0927, Until [place] 08/15/19 at 0927, Routine heparin 2019- No Slow IV Univer s 1,000 08-14 Push, ity of unit/mL 14:19: 14:19 TITRATE - [place] injection 46 :46 FOR Medical PROCEDURE Branch USE, 1 dose, Starting [place] 08/15/19 at 0919, Until [place] 08/15/19 at 0919, Routine FENTanyl PF 2019- No Slow IV Un cali (SUBLIMAZE 08-14 Push, ity of (PF)) 14:11: 14:11 TITRATE - [place] injection 44 :44 FOR Medical PROCEDURE Branch USE, 1 dose, Starting [place] 08/15/19 at 0911, Until [place] 08/15/19 at 0911, Routine midazolam 2019- No IV Push, Uni vers (VERSED) 08-14 TITRATE - ity o f injection 14:11: 14:11 FOR [place] 39 :39 PROCEDURE Medical USE, 1 Branch dose, Starting [place] 08/15/19 at 0911, Until [place] 08/15/19 at 0911, Routine lidocaine 2019- No Infiltrati U nivers 1% (PF) 08-14 on, ity of (XYLOCAINE) 14:06: 14:06 TITRATE - [place] injection 09 :09 FOR Medical PROCEDURE Branch USE, 1 dose, Starting [place] 08/15/19 at 0906, Until [place] 08/15/19 at 0906, Routine FENTanyl PF 2019- No Slow IV Un cali (SUBLIMAZE 08-14 Push, ity of (PF)) 14:06: 14:06 TITRATE - [place] injection 01 :01 FOR Medical PROCEDURE Branch USE, 1 dose, Starting [place] 08/15/19 at 0906, Until [place] 08/15/19 at 0906, Routine midazolam 2019-0 2020- No IV Push, Uni vers (VERSED) 08-14 TITRATE - ity o f injection 14:05: 14:05 FOR [place] 50 :50 PROCEDURE Medical USE, 1 Branch dose, Starting [place] 08/15/19 at 0905, Until [place] 08/15/19 at 0905, Routine azithromyci 2019-0 2020- No 250mg 250 mg, U nivers n 08-14 Oral, ity of (ZITHROMAX) 14:00: 13:59 DAILY, 4 [place] tablet 250 00 :00 doses, Medical mg First dose Branch on [place] 08/15/19 at 0900, Last dose on [place] 08/18/19 at 0900, TRANG
Re ason for Anti-Infec tive: Empiric Therapy for Suspected Infection< br>Empiric Therapy Site: Respirator y
Durat ion of therapy: 72 hours magnesium 2019-0 2020- No 4g 4 g, IV Univ ers sulfate in 08-14 Piggyback, it y of water 4 12:45: 01:35 ONCE, 1 [place] gram/50 mL 00 :00 dose, [place] Medi blanquita (8 %) IV 08/15/19 at [facility] h Piggyback 4 0745, g Routine ipratropium 2019-0 Yes 3mL 3 mL, Unive rs -albuterol 08-14 Inhalation ity of (DUONEB) 10:24: , QID, [place] 0.5 mg-3 00 First dose Medic al mg(2.5 mg on [place] Branch base)/3 mL 08/15/19 at nebulizer 0530, solution 3 Until mL Discontinu ed, Routine Sliding 0 2020- No Subcutaneo Uni vers Scale 08-14 us, Q3H, ity of Insulin - 07:00: 18:43 First dose [place] Aspart 00 :29 on [place] Medical (NOVOLOG) + 08/15/19 at Br anch Fsbg 0200, Testing Until Discontinu ed, TRANG HYDROcodone 2020-0 Yes 1{tbl} 1 tablet, Univers -acetaminop 08-14 Oral, ity of hen (NORCO 03:41: Q6HPRN, [place] 5) 5-325 mg 39 Starting Medi [place] tablet 1 Mon Branch tablet 08/14/19 at 2241, Until Discontinu ed, Routine, Pain (scale 4-6) insulin 2020-0 2020- No 10U 10 Units, Univ ers regular 08-14-19 Subcutaneo ity o f human 03:33: 03:38 us, ONCE, [place] (HUMULIN R) 00 :00 1 dose, Medic al injection Wed Branch 10 Units 08/14/19 at 2245, Routine insulin 2019-0 2020- No 8U 8 Units, Unive rs regular 08-13 Slow IV ity of human 22:00: 21:23 Push, [place] (HUMULIN R) 00 :00 ONCE, 1 Medic al injection 8 dose, Mon Bra nch Units 08/14/19 at 1700, Routine sulfur 2019-0 2020- No 5mL 5 mL, Univers hexafluorid 08-13 Intravenou i ty of e microsphr 17:15: 14:00 s, ONCE, 1 [place] (LUMASON) 00 :00 dose, Mon Medic al injection 5 08/14/19 at Br anch mL 1215, Routine Sliding 2020-0 2020- No Subcutaneo Uni vers Scale 08-1319 us, Q3H, ity of Insulin - 17:00: 02:17 First dose [place] Aspart 00 :46 on Mon Medical (NOVOLOG) + 08/14/19 at Br anch Fsbg 1200, Testing Until Discontinu ed, Routine clopidogreL 2020-0 Yes 75mg 75 mg, Univ ers (PLAVIX) 08-13 Oral, ity of tablet 75 14:00: DAILY, [place] mg 00 First dose Medical on Mon Branch 08/14/19 at 0900, Until Discontinu ed, Routine aspirin EC 2020-0 Yes 81mg 81 mg, Unive rs tablet 81 08-13 Oral, ity of mg 14:00: DAILY, [place] 00 First dose Medical on Mon Branch 08/14/19 at 0900, Until Discontinu ed, Routine predniSONE 2020-0 2020- No 40mg 40 mg, Univ ers (DELTASONE) 08-13 Oral, ity of tablet 40 14:00: 12:54 DAILY, 5 [place] mg 00 :29 doses, Medical First dose Branch on Mon08/14/19 at 0900, Last dose on 08/18/19 at 0900, Routine insulin 2020- 2020- No .25U/kg 20 Units Un cali glargine 08-13d (rounded ity of (LANTUS 14:00: 06:45 from [place] U-100) 00 :18 20.175 Medical injection Units = Branch 20 Units 0.25 Units/kg/d ay ?80.7 kg), Subcutaneo us, DAILY, First dose on Mon08/14/19 at 0900, Until Discontinu ed, Routine metoprolol 2019- No 25mg 25 mg, Univ ers tartrate 08-13 Oral, BID, ity of (LOPRESSOR) 13:00: 14:33 First dose [place] tablet 25 00 :04 on Mon Medical mg 08/14/19 at Branch 0800, Until Discontinu ed, Routine ipratropium 2019- No 3mL 3 mL, Univ ers -albuterol 08-13 Inhalation it y of (DUONEB) 13:00: 10:24 , QID, [place] 0.5 mg-3 00 :42 First dose Medic al mg(2.5 mg on Mon Branch base)/3 mL 08/14/19 at nebulizer 0800, solution 3 Until mL Discontinu ed, Routine Sliding 2019- No Subcutaneo Uni vers Scale 08-13 , TID ity of Insulin - 13:00: 16:52 MEALS+HS, [place] Aspart 00 :44 First dose Medical (NOVOLOG) + on Mon Branch Fsbg 08/14/19 at Testing 0800, Until Discontinu ed, Routine insulin 2019- 2020- No .25U/kg 7 Units Uni vers aspart 08-13d (rounded ity of RAPID 12:30: 06:45 from 6.725 [place] (NOVOLOG) 00 :18 Units = Medical injection 7 0.25 Branch Units Units/kg/d ay ?80.7 kg), [facility] , TIDAC, First dose on Mon08/14/19 at 0730, Until Discontinu ed, Routine magnesium 2019-2019- No 4g 4 g, IV Univ ers sulfate in 08-13 Piggyback, it y of water 4 12:15: 14:00 ONCE, 1 [place] gram/50 mL 00 :00 dose, Mon Medi blanquita (8 %) IV 08/14/19 at [facility] h Piggyback 4 0715, g Routine dextrose 2019-0 Yes 250mL 250 mL, IV Un cali 10% (D10W) 18 Infusion, ity of bolus 12:06: PRN - SEE [place] infusion 49 INSTRUCTIO Medic al 250 mL NS, AMS Branch and BG <70, Starting [facility] 08/14/19 at 0706
De xtrose 10% 250 mL bag contains:& nbsp;10 gm = 100 mL 20 gm = 200 mL 25 gm = 250 mL (whole bag) The maximum rate at which dextrose can be infused without producing glycosuria is 0.5 g/kg/hour. &nbs p;BUD: If wrapper is open bag is good for 30 days at room temperatur e. <b r> glucagon 2019-0 Yes 1mg 1 mg, Univers (GLUCAGEN 08-13 Intramuscu ity of DIAGNOSTIC 12:05: lar, PRN, [place] KIT) 55 Starting Medical injection 1 Mon [place] mg 08/14/19 at 0705, Until Discontinu ed, TRANG, Blood Glucose < or = 70 mg/dL and patient is unable to swallow or has mental changes. morpHINE 2019-0 2020- No 2mg 2 mg, Slow Un cali injection 2 08-1318 IV Push, ity of mg 11:45: 10:43 ONCE, 1 [place] 00 :00 dose, [facility] Medical 08/14/19 at Branch 0645, Routine atorvastati 2019-0 2020- No 40mg 40 mg, Uni vers n (LIPITOR) 08-1320 Oral, QHS, i ty of tablet 40 02:00: 14:33 First dose [place] mg 00 :04 on [facility] 08/13/19 at Branch 2100, Until Discontinu ed, Routine Sliding 2019-0 2020- No Subcutaneo Uni vers Scale 08-1218 us, TID ity of Insulin - 22:00: 12:09 MEALS+HS, [place] Aspart 00 :18 First dose Medical (NOVOLOG) + on [facility] Fsbg 08/13/19 at Testing 1700, Until Discontinu ed, Routine dextrometho 2020-0 Yes 5mL 5 mL, [facility] rs rphan-guaif 08-12 Oral, ity of enesin 21:03: Q6HPRN, [place] (ROBITUSSIN 48 Starting Medi blanquita DM) 10-100 [facility] mg/5 mL 08/13/19 at solution 5 1603, mL Until Discontinu ed, Routine, Cough morpHINE 2019- No 4mg 4 mg, Slow Un cali injection 4 08-12 IV Push, ity of mg 21:00: 20:06 ONCE, 1 [place] 00 :00 dose, [facility] 08/13/19 at Branch 1600, Routine clopidogreL 2019- No 300mg 300 mg, U nivers (PLAVIX) 08-12 Oral, ity of tablet 300 20:30: 21:32 ONCE, 1 [place] mg 00 :00 dose, [facility] 08/13/19 at Branch 1530, Routine NaCl 0.9% 2019- No 500mL at 50 [facility] rs (NS) IV 08-12 mL/hr, IV ity of infusion 20:30: 19:41 Infusion, [place] 500 mL 00 :00 ONCE, 1 Medical dose, [facility] 08/13/19 at 1530, Routine
50 cc/hr for 500 mL total
HYDROcodone 2020- No 1{tbl} 1 tablet, Univers -acetaminop 08-12 Oral, ity of hen (NORCO 20:15: 02:39 ONCE, 1 [place] 5) 5-325 mg 00 :00 dose, [facility] Med ical tablet 1 08/13/19 at [facility] h tablet 1515, Routine FENTanyl PF 2020- No Slow IV Un cali (SUBLIMAZE 08-12 Push, ity of (PF)) 16:26: 16:26 TITRATE - [place] injection 15 :15 FOR Medical PROCEDURE Branch USE, 1 dose, Starting [facility] 08/13/19 at 1126, Until [facility] 08/13/19 at 1126, Routine midazolam 2020- No IV Push, Uni vers (VERSED) 08-12 TITRATE - ity o f injection 16:26: 16:26 FOR [place] 05 :05 PROCEDURE Medical USE, 1 Branch dose, Starting [facility] 08/13/19 at 1126, Until [facility] 08/13/19 at 1126, Routine clopidogreL 2020-0 2020- No 300mg 300 mg, U vinicioers (PLAVIX) 08-12 Oral, ity of tablet 300 15:30: 15:48 ONCE, 1 [place] mg 00 :00 dose, [facility] Medical 08/13/19 at Branch 1030, Routine pantoprazol 2020-0 Yes 40mg 40 mg, Univ ers e 08-12 Oral, ity of (PROTONIX) 14:00: DAILY, [place] EC tablet 00 First dose Medi blanquita 40 mg on [facility] 08/13/19 at 0900, Until Discontinu ed, Routine isosorbide 2020-0 Yes 30mg 30 mg, Unive rs mononitrate 08-12 Oral, ity of (IMDUR) 24 14:00: DAILY, [place] hr tablet 00 First dose Medi blanquita 30 mg on [facility] 08/13/19 at 0900, Until Discontinu ed, Routine furosemide 2020-0 Yes 20mg 20 mg, Unive rs (LASIX) 08-12 Oral, ity of tablet 20 14:00: DAILY, [place] mg 00 First dose Medical on [facility] 08/13/19 at 0900, Until Discontinu ed, Routine insulin NPH 2020-0 2020- No .3U/kg/ 12 Units Univers (HUMULIN N) 08-1218 d (rounded ity of injection 14:00: 12:08 from [place] 12 Units 00 :24 12.195 Medical Units = Branch 0.3 Units/kg/d ay ?81.3 kg), Subcutaneo us, QAM+HS, First dose on [facility] 08/13/19 at 0900, Until Discontinu ed, Routine metoprolol 2020-0 2020- No 25mg 25 mg, Univ ers tartrate 08-12 Oral, ity of (LOPRESSOR) 14:00: 12:10 DAILY, [place] tablet 25 00 :23 First dose Medi [place] mg on [facility] 08/13/19 at 0900, Until Discontinu ed, Routine aspirin EC 2020-0 2020- No 81mg 81 mg, Univ ers tablet 81 08-12 Oral, ity of mg 14:00: 13:38 DAILY, [place] 00 :12 First dose Medical on [facility] Branch 08/13/19 at 0900, Until Discontinu ed, Routine gabapentin 2020-0 Yes 800mg 800 mg, Uni vers (NEURONTIN) 08-12 Oral, TID, it y of tablet 800 13:00: First dose [place] mg 00 on [facility] Medical 08/13/19 at Branch 0800, Until Discontinu ed, Routine insulin 2020-0 2020- No .3U/kg/ 8 Units Uni vers aspart 08-1218 d (rounded ity of RAPID 13:00: 12:08 from 8.13 [place] (NOVOLOG) 00 :24 Units = Medical injection 8 0.3 Branch Units Units/kg/d ay ?81.3 kg), Subcutaneo us, TID MEALS, First dose on 08/13/19 at 0800, Until Discontinu ed, Routine heparin 2020-0 2020- No 12U/kg/ 12 Univer s 25,000 08-12 h Units/kg/h ity of units/250mL 10:45: 18:00 r ?81.3 kg [place] in NS 00 :11 (9.756 Medical weight mL/hr, Branch based rounded to dosing ACS 9.76 protocol mL/hr), IV Infusion, CONTINUOUS , Starting Mon08/13/19 at 0545, Until Mon08/15/19 at 1300 magnesium 2020-0 2020- No 4g 4 g, IV Univ ers sulfate in 08-12 Piggyback, it y of water 4 10:30: 10:53 ONCE, 1 [place] gram/50 mL 00 :00 dose, Mon Medi blanquita (8 %) IV 08/13/19 at [facility] h Piggyback 4 0530, g Routine heparin 2020-0 2020- No 4000U 4,000 Univers 1000 08-12 Units, IV ity of unit/mL 09:45: 12:17 Push, [place] injection 00 :00 ONCE, 1 Medical Soln 4,000 dose, Mon Bran ch Units 08/13/19 at 0500, Routine heparin 2020-0 Yes 3000U FOR Univers (1,000 08-12 REBOLUSING ity of unit/mL, 10 09:43: , Starting [place] mL vial) 08 [facility] for 08/13/19 at Branch Rebolusing 0443, Until Discontinu ed, Routine
Dosing based on aPTT testing parameters (refer to continuous heparin drip order).
ondansetron 2019-0 2020- No 4mg 4 mg, Slow Univers (ZOFRAN 08-12 IV Push, ity of (PF)) 08:30: 07:44 ONCE, 1 [place] injection 4 00 :00 dose, [facility] Med ical mg 08/13/19 at Branch 0330, Routine dextrometho 2019-0 2020- No 5mL 5 mL, Univ ers rphan-guaif 08-12 Oral, ity of enesin 07:25: 21:03 Q6HPRN, [place] (ROBITUSSIN 59 :57 Starting Medi blanquita DM) 10-100 [facility] mg/5 mL 08/13/19 at solution 5 0225, mL Until [facility] 08/13/19 at 1603, Routine, Cough morpHINE 2019-0 2020- No 2mg 2 mg, Slow Un cali injection 2 08-12 IV Push, ity of mg 06:08: 13:24 Q6HPRN, 2 [place] 33 :00 doses, Medical Starting Branch 08/13/19 at 0108, Until 08/13/19 at 0824, Routine, Chest pain aspirin 2020-0 Yes 81mg Take 81 mg Univ ers (ASPIRIN 3-17 by mouth ity of LOW DOSE) 04:49: daily. [place] 81 mg EC 06 Medical tablet Branch aspirin 2020-0 Yes 81mg Take 81 mg Univ ers (ASPIRIN 3-17 by mouth ity of LOW DOSE) 04:49: daily. [place] 81 mg EC 06 Medical tablet Branch nitroglycer 2020-0 Yes .4mg 0.4 mg, Uni vers in 3-17 Sublingual ity of (NITROSTAT) 04:31: , Q5MIN [place] sublingual 28 PRN, Medical tablet 0.4 Starting Branc h mg 08/12/19 at 2331, Until Discontinu ed, Routine, Chest pain aspirin 2020-0 Yes 81mg Take 81 mg Univ ers (ASPIRIN 3-09 by mouth ity of LOW DOSE) 16:06: daily. [place] 81 mg EC 37 Medical tablet Branch aspirin 2020-0 Yes 81mg Take 81 mg Univ ers (ASPIRIN 3-09 by mouth ity of LOW DOSE) 16:06: daily. [place] 81 mg EC 37 Medical tablet Branch aspirin 2020-0 Yes 81mg Take 81 mg Univ ers (ASPIRIN 3-09 by mouth ity of LOW DOSE) 16:06: daily. [place] 81 mg EC 37 Medical tablet Branch aspirin 2020-0 Yes 81mg Take 81 mg Univ ers (ASPIRIN 3-09 by mouth ity of LOW DOSE) 16:06: daily. [place] 81 mg EC 37 Medical tablet Branch aspirin 2020-0 Yes 81mg Take 81 mg Univ ers (ASPIRIN 3-09 by mouth ity of LOW DOSE) 16:06: daily. [place] 81 mg EC 37 Medical tablet Branch isosorbide 2020-0 Yes [id number] 30mg Take 1 Univers mononitrate 3-09 tablet by ity of 30 mg 24 hr 00:00: mouth [place] tablet 00 daily. Medical Branch isosorbide 2020-0 Yes [id number] 30mg Take 1 Univers mononitrate 3-09 tablet by ity of 30 mg 24 hr 00:00: mouth [place] tablet 00 daily. Medical Branch isosorbide 2020-0 Yes [id number] 30mg Take 1 Univers mononitrate 3-09 tablet by ity of 30 mg 24 hr 00:00: mouth [place] tablet 00 daily. Medical Branch isosorbide 2020-0 Yes [id number] 30mg Take 1 Univers mononitrate 3-09 tablet by ity of 30 mg 24 hr 00:00: mouth [place] tablet 00 daily. Medical Branch isosorbide 2020-0 Yes [id number] 30mg Take 1 Univers mononitrate 3-09 tablet by ity of 30 mg 24 hr 00:00: mouth [place] tablet 00 daily. Medical Branch isosorbide 2020-0 Yes [id number] 30mg Take 1 Univers mononitrate 3-09 tablet by ity of 30 mg 24 hr 00:00: mouth [place] tablet 00 daily. Medical Branch isosorbide 2020-0 Yes [id number] 30mg Take 1 Univers mononitrate 3-09 tablet by ity of 30 mg 24 hr 00:00: mouth [place] tablet 00 daily. Medical Branch isosorbide 2020-0 Yes [id number] 30mg Take 1 [facility] mononitrate 3-09 tablet by ity of 30 mg 24 hr 00:00: mouth [place] tablet 00 daily. Medical Branch isosorbide 2020-0 Yes [id number] 30mg Take 1 [facility] mononitrate 3-09 tablet by ity of 30 mg 24 hr 00:00: mouth [place] tablet 00 daily. Medical Branch isosorbide 2020-0 Yes [id number] 30mg Take 1 [facility] mononitrate 3-09 tablet by ity of 30 mg 24 hr 00:00: mouth [place] tablet 00 daily. Medical Branch isosorbide 2020-0 Yes [id number] 30mg Take 1 [facility] mononitrate 3-09 tablet by ity of 30 mg 24 hr 00:00: mouth [place] tablet 00 daily. Medical Branch isosorbide 2020-0 Yes [id number] 30mg Take 1 [facility] mononitrate 3-09 tablet by ity of 30 mg 24 hr 00:00: mouth [place] tablet 00 daily. Medical Branch isosorbide 2020-0 Yes [id number] 30mg Take 1 [facility] mononitrate 3-09 tablet by ity of 30 mg 24 hr 00:00: mouth [place] tablet 00 daily. Medical Branch isosorbide 2020-0 Yes [id number] 30mg Take 1 [facility] mononitrate 3-09 tablet by ity of 30 mg 24 hr 00:00: mouth [place] tablet 00 daily. Medical Branch isosorbide 2020-0 Yes [id number] 30mg Take 1 [facility] mononitrate 3-09 tablet by ity of 30 mg 24 hr 00:00: mouth [place] tablet 00 daily. Medical Branch isosorbide 2020-0 Yes [id number] 30mg Take 1 [facility] mononitrate 3-09 tablet by ity of 30 mg 24 hr 00:00: mouth [place] tablet 00 daily. Medical Branch isosorbide 2020-0 Yes [id number] 30mg Take 1 [facility] mononitrate 3-09 tablet by ity of 30 mg 24 hr 00:00: mouth [place] tablet 00 daily. Medical Branch isosorbide 2020-0 Yes [id number] 30mg Take 1 [facility] mononitrate 3-09 tablet by ity of 30 mg 24 hr 00:00: mouth [place] tablet 00 daily. Medical Branch isosorbide 2020-0 Yes [id number] 30mg Take 1 [facility] mononitrate 3-09 tablet by ity of 30 mg 24 hr 00:00: mouth [place] tablet 00 daily. Medical Branch isosorbide 2020-0 Yes [id number] 30mg Take 1 [facility] mononitrate 3-09 tablet by ity of 30 mg 24 hr 00:00: mouth [place] tablet 00 daily. Medical Branch isosorbide 2020-0 Yes [id number] 30mg Take 1 Univers mononitrate 3-09 tablet by ity of 30 mg 24 hr 00:00: mouth [place] tablet 00 daily. Medical Branch isosorbide 2020-0 Yes [id number] 30mg Take 1 Univers mononitrate 3-09 tablet by ity of 30 mg 24 hr 00:00: mouth [place] tablet 00 daily. [facility] isosorbide 2020-0 Yes [id number] 30mg Take 1 [facility] mononitrate 3-09 tablet by ity of 30 mg 24 hr 00:00: mouth [place] tablet 00 daily. [facility] isosorbide 2020-0 Yes [id number] 30mg Take 1 [facility] mononitrate 3-09 tablet by ity of 30 mg 24 hr 00:00: mouth [place] tablet 00 daily. [facility] isosorbide 2020-0 Yes [id number] 30mg Take 1 [facility] mononitrate 3-09 tablet by ity of 30 mg 24 hr 00:00: mouth [place] tablet 00 daily. [facility] isosorbide 2020-0 Yes [id number] 30mg Take 1 [facility] mononitrate 3-09 tablet by ity of 30 mg 24 hr 00:00: mouth [place] tablet 00 daily. [facility] isosorbide 2020-0 Yes [id number] 30mg Take 1 [facility] mononitrate 3-09 tablet by ity of 30 mg 24 hr 00:00: mouth [place] tablet 00 daily. [facility] isosorbide 2020-0 Yes [id number] 30mg Take 1 [facility] mononitrate 3-09 tablet by ity of 30 mg 24 hr 00:00: mouth [place] tablet 00 daily. [facility] isosorbide 2020-0 Yes [id number] 30mg Take 1 [facility] mononitrate 3-09 tablet by ity of 30 mg 24 hr 00:00: mouth [place] tablet 00 daily. [facility] isosorbide 2020-0 Yes [id number] 30mg Take 1 [facility] mononitrate 3-09 tablet by ity of 30 mg 24 hr 00:00: mouth [place] tablet 00 daily. [facility] isosorbide 2020-0 Yes [id number] 30mg Take 1 [facility] mononitrate 3-09 tablet by ity of 30 mg 24 hr 00:00: mouth [place] tablet 00 daily. [facility] isosorbide 2020-0 Yes [id number] 30mg Take 1 [facility] mononitrate 3-09 tablet by ity of 30 mg 24 hr 00:00: mouth [place] tablet 00 daily. [facility] isosorbide 2020-0 Yes [id number] 30mg Take 1 [facility] mononitrate 3-09 tablet by ity of 30 mg 24 hr 00:00: mouth [place] tablet 00 daily. [facility] isosorbide 2020-0 Yes [id number] 30mg Take 1 [facility] mononitrate 3-09 tablet by ity of 30 mg 24 hr 00:00: mouth [place] tablet 00 daily. [facility] isosorbide 2020-0 Yes [id number] 30mg Take 1 [facility] mononitrate 3-09 tablet by ity of 30 mg 24 hr 00:00: mouth [place] tablet 00 daily. [facility] isosorbide 2020-0 Yes [id number] 30mg Take 1 [facility] mononitrate 3-09 tablet by ity of 30 mg 24 hr 00:00: mouth [place] tablet 00 daily. [facility] isosorbide 2020-0 Yes [id number] 30mg Take 1 [facility] mononitrate 3-09 tablet by ity of 30 mg 24 hr 00:00: mouth [place] tablet 00 daily. [facility] isosorbide 2020-0 Yes [id number] 30mg Take 1 [facility] mononitrate 3-09 tablet by ity of 30 mg 24 hr 00:00: mouth [place] tablet 00 daily. [facility] isosorbide 2020-0 Yes [id number] 30mg Take 1 [facility] mononitrate 3-09 tablet by ity of 30 mg 24 hr 00:00: mouth [place] tablet 00 daily. [facility] isosorbide 2020-0 Yes [id number] 30mg Take 1 [facility] mononitrate 3-09 tablet by ity of 30 mg 24 hr 00:00: mouth [place] tablet 00 daily. [facility] isosorbide 2020-0 Yes [id number] 30mg Take 1 [facility] mononitrate 3-09 tablet by ity of 30 mg 24 hr 00:00: mouth [place] tablet 00 daily. [facility] isosorbide 2020-0 Yes [id number] 30mg Take 1 [facility] mononitrate 3-09 tablet by ity of 30 mg 24 hr 00:00: mouth [place] tablet 00 daily. [facility] isosorbide 2020-0 Yes [id number] 30mg Take 1 [facility] mononitrate 3-09 tablet by ity of 30 mg 24 hr 00:00: mouth [place] tablet 00 daily. [facility] isosorbide 2020-0 Yes [id number] 30mg Take 1 [facility] mononitrate 3-09 tablet by ity of 30 mg 24 hr 00:00: mouth [place] tablet 00 daily. [facility] isosorbide 2020-0 Yes [id number] 30mg Take 1 [facility] mononitrate 3-09 tablet by ity of 30 mg 24 hr 00:00: mouth [place] tablet 00 daily. [facility] isosorbide 2020-0 Yes [id number] 30mg Take 1 [facility] mononitrate 3-09 tablet by ity of 30 mg 24 hr 00:00: mouth [place] tablet 00 daily. [facility] isosorbide 2020-0 Yes [id number] 30mg Take 1 [facility] mononitrate 3-09 tablet by ity of 30 mg 24 hr 00:00: mouth [place] tablet 00 daily. [facility] isosorbide 2020-0 Yes [id number] 30mg Take 1 [facility] mononitrate 3-09 tablet by ity of 30 mg 24 hr 00:00: mouth [place] tablet 00 daily. [facility] isosorbide 2020-0 Yes [id number] 30mg Take 1 [facility] mononitrate 3-09 tablet by ity of 30 mg 24 hr 00:00: mouth [place] tablet 00 daily. [facility] isosorbide 2020-0 Yes [id number] 30mg Take 1 [facility] mononitrate 3-09 tablet by ity of 30 mg 24 hr 00:00: mouth [place] tablet 00 daily. [facility] isosorbide 2020-0 2021- No [id number] 30mg Take 1 [facility] mononitrate 3-09 01-08 tablet by it y of 30 mg 24 hr 00:00: 00:[place] tablet 00 :00 daily. [facility] insulin NPH 2018-05 Yes [id number] Inject 80 [facility] and regular 2-13 units AM, ity of human 70-30 00:00: 90 units [place] (NOVOLIN 00 PM Medical 70/30 U-100 Branch INSULIN) 100 unit/mL (70-30) injection insulin NPH 2018-05 Yes [id number] Inject 80 [facility] and regular 2-13 units AM, ity of human 70-30 00:00: 90 units [place] (NOVOLIN 00 PM Medical 70/30 U-100 Branch INSULIN) 100 unit/mL (70-30) injection insulin NPH 2018-05 Yes [id number] Inject 80 [facility] and regular 2-13 units AM, ity of human 70-30 00:00: 90 units [place] (NOVOLIN 00 PM Medical 70/30 U-100 Branch INSULIN) 100 unit/mL (70-30) injection insulin NPH 2018-05 Yes [id number] Inject 80 [facility] and regular 2-13 units AM, ity of human 70-30 00:00: 90 units [place] (NOVOLIN 00 PM Medical 70/30 U-100 Branch INSULIN) 100 unit/mL (70-30) injection insulin NPH 2018-05 Yes [id number] Inject 80 [facility] and regular 2-13 units AM, ity of human 7030 00:00: 90 units [place] (NOVOLIN 00 PM Medical 70/30 U-100 Branch INSULIN) 100 unit/mL (70-30) injection insulin NPH 2018-05 Yes [id number] Inject 80 [facility] and regular 2-13 units AM, ity of human 70-30 00:00: 90 units [place] (NOVOLIN 00 PM Medical 70/30 U-100 Branch INSULIN) 100 unit/mL (70-30) injection insulin NPH 2018-05 Yes [id number] Inject 80 [facility] and regular 2-13 units AM, ity of human 7030 00:00: 90 units [place] (NOVOLIN 00 PM Medical 70/30 U-100 Branch INSULIN) 100 unit/mL (70-30) injection insulin NPH 2018-05 2020- No [id number] Inject 80 [facility] and regular 2-13 03-20 units AM, it y of human 70-30 00:00: 00:00 90 units [place] (NOVOLIN 00 :00 PM Medical 70/30 U-100 Branch INSULIN) 100 unit/mL (70-30) injection FUROSEMIDE 2018-05 Yes [id number] TAKE 1 U nivers 20 mg 2-11 TABLET BY ity of tablet 00:00: MOUTH ONCE [place] DAILY Medical Branch FUROSEMIDE 2018-05 Yes [id number] TAKE 1 U nivers 20 mg 2-11 TABLET BY ity of tablet 00:00: MOUTH ONCE [place] DAILY [facility] FUROSEMIDE 2018-05 Yes [id number] TAKE 1 U nivers 20 mg 2-11 TABLET BY ity of tablet 00:00: MOUTH ONCE [place] DAILY Medical Branch FUROSEMIDE 2018-05 Yes [id number] TAKE 1 U nivers 20 mg 2-11 TABLET BY ity of tablet 00:00: MOUTH ONCE [place] DAILY [facility] FUROSEMIDE 2018-05 Yes [id number] TAKE 1 U nivers 20 mg 2-11 TABLET BY ity of tablet 00:00: MOUTH ONCE DAILY Medical Branch FUROSEMIDE 2019- Yes [id number] TAKE 1 U nivers 20 mg 2-11 TABLET BY ity of tablet 00:00: MOUTH ONCE DAILY Medical Branch FUROSEMIDE 2019- Yes [id number] TAKE 1 U nivers 20 mg 2-11 TABLET BY ity of tablet 00:00: MOUTH ONCE DAILY Medical Branch FUROSEMIDE 2019- Yes [id number] TAKE 1 U nivers 20 mg 2-11 TABLET BY ity of tablet 00:00: MOUTH ONCE DAILY Medical Branch FUROSEMIDE 2019- Yes [id number] TAKE 1 U nivers 20 mg 2-11 TABLET BY ity of tablet 00:00: MOUTH ONCE DAILY Medical Branch FUROSEMIDE 2019- Yes [id number] TAKE 1 U nivers 20 mg 2-11 TABLET BY ity of tablet 00:00: MOUTH ONCE [place] [facility] FUROSEMIDE 2019- Yes [id number] TAKE 1 U nivers 20 mg 2-11 TABLET BY ity of tablet 00:00: MOUTH ONCE [place] DAILY [facility] FUROSEMIDE 2019- Yes [id number] TAKE 1 U nivers 20 mg 2-11 TABLET BY ity of tablet 00:00: MOUTH ONCE [place] [facility] FUROSEMIDE 2019- Yes [id number] TAKE 1 U nivers 20 mg 2-11 TABLET BY ity of tablet 00:00: MOUTH ONCE [place] [facility] FUROSEMIDE 2019- Yes [id number] TAKE 1 U nivers 20 mg 2-11 TABLET BY ity of tablet 00:00: MOUTH ONCE [place] DAILY [facility] FUROSEMIDE 2019- Yes [id number] TAKE 1 U nivers 20 mg 2-11 TABLET BY ity of tablet 00:00: MOUTH ONCE DAILY Medical Branch FUROSEMIDE 2019- Yes [id number] TAKE 1 U nivers 20 mg 2-11 TABLET BY ity of tablet 00:00: MOUTH ONCE [place] DAILY [facility] FUROSEMIDE 2019- Yes [id number] TAKE 1 U nivers 20 mg 2-11 TABLET BY ity of tablet 00:00: MOUTH ONCE DAILY Medical Branch FUROSEMIDE 2019- Yes [id number] TAKE 1 U nivers 20 mg 2-11 TABLET BY ity of tablet 00:00: MOUTH ONCE [place] DAILY [facility] FUROSEMIDE 2019- Yes [id number] TAKE 1 U nivers 20 mg 2-11 TABLET BY ity of tablet 00:00: MOUTH ONCE [place] DAILY [facility] FUROSEMIDE 2019- Yes [id number] TAKE 1 U nivers 20 mg 2-11 TABLET BY ity of tablet 00:00: MOUTH ONCE [place] DAILY [facility] Branch FUROSEMIDE 2018- Yes [id number] TAKE 1 U nivers 20 mg 2-11 TABLET BY ity of tablet 00:00: MOUTH ONCE [place] DAILY [facility] FUROSEMIDE 2019- Yes [id number] TAKE 1 U nivers 20 mg 2-11 TABLET BY ity of tablet 00:00: MOUTH ONCE [place] DAILY [facility] FUROSEMIDE 2018- Yes [id number] TAKE 1 U nivers 20 mg 2-11 TABLET BY ity of tablet 00:00: MOUTH ONCE [place] DAILY [facility] FUROSEMIDE 2019- Yes [id number] TAKE 1 U nivers 20 mg 2-11 TABLET BY ity of tablet 00:00: MOUTH ONCE [place] DAILY [facility] FUROSEMIDE 2018- Yes [id number] TAKE 1 U nivers 20 mg 2-11 TABLET BY ity of tablet 00:00: MOUTH ONCE [place] DAILY [facility] FUROSEMIDE 2019- Yes [id number] TAKE 1 U nivers 20 mg 2-11 TABLET BY ity of tablet 00:00: MOUTH ONCE [place] DAILY [facility] FUROSEMIDE 2018- Yes [id number] TAKE 1 U nivers 20 mg 2-11 TABLET BY ity of tablet 00:00: MOUTH ONCE [place] DAILY [facility] FUROSEMIDE 2019- 2020- No [id number] TAKE 1 [facility] 20 mg 2-11 08-18 TABLET BY ity of tablet 00:00: 00:00 MOUTH ONCE [place] 00 :00 DAILY [facility] FUROSEMIDE 2019- 2020- No [id number] TAKE 1 [facility] 20 mg 2-11 08-18 TABLET BY ity of tablet 00:00: 00:00 M[place]TH [place]CE [place] 00 :[place] DAILY [facility] FUROSEMIDE 2019- 2020- No [id number] TAKE 1 [facility] 20 mg 2-11 08-18 TABLET BY ity of tablet 00:00: 00:00 MOUTH ONCE [place] 00 :00 DAILY [facility] pantoprazol 2019- Yes [id number] 40mg Take 1 [facility] e 40 mg EC 0-29 tablet by ity of tablet 00:00: mouth [place] 00 daily. Medical Branch potassium 2019- Yes [id number] 10meq Take 1 U nivers chloride 10 0-29 tablet by ity of mEq CR 00:00: mouth [place] tablet 00 daily. [facility] Branch albuterol 2018-05 Yes [id number] 2{puff} Inhale 2 [facility] 90 0-29 Puffs ity of mcg/actuati 00:00: every 6 [place] on inhaler 00 (six) Medical hours as Branch needed for Wheezing or Shortness of Breath. nitroglycer 2018-05 Yes [id number] 1 tab SL [facility] in 0.4 mg 0-29 q5min up ity of sublingual 00:00: to 3 doses [place] tablet 00 PRN chest Medical pain, then Branch activate 911. DULoxetine 2018-05 Yes [id number] 30mg Take 1 [facility] 30 mg 0-29 capsule by ity of capsule 00:00: mouth [place] 00 daily. [facility] pantoprazol 2018-05 Yes [id number] 40mg Take 1 [facility] e 40 mg EC 0-29 tablet by ity of tablet 00:00: mouth [place] 00 daily. [facility] potassium 2018-05 Yes [id number] 10meq Take 1 U nivers chloride 10 0-29 tablet by ity of mEq CR 00:00: mouth [place] tablet 00 daily. [facility] albuterol 2018-05 Yes [id number] 2{puff} Inhale 2 [facility] 90 0-29 Puffs ity of mcg/actuati 00:00: every 6 [place] inhaler 00 (six) Medical hours as Branch needed for Wheezing or Shortness of Breath. nitroglycer 2018-05 Yes [id number] 1 tab SL [facility] in 0.4 mg 0-29 q5min up ity of sublingual 00:00: to 3 doses [place] tablet 00 PRN chest Medical pain, then Branch activate 911. DULoxetine 2018-05 Yes [id number] 30mg Take 1 [facility] 30 mg 0-29 capsule by ity of capsule 00:00: mouth [place] 00 daily. [facility] pantoprazol 2018-05 Yes [id number] 40mg Take 1 [facility] e 40 mg EC 0-29 tablet by ity of tablet 00:00: mouth [place] 00 daily. [facility] potassium 2018-05 Yes [id number] 10meq Take 1 U nivers chloride 10 0-29 tablet by ity of mEq CR 00:00: mouth [place] tablet 00 daily. [facility] albuterol 2018-05 Yes [id number] 2{puff} Inhale 2 [facility] 90 0-29 Puffs ity of mcg/actuati 00:00: every 6 [place] inhaler 00 (six) Medical hours as Branch needed for Wheezing or Shortness of Breath. nitroglycer 2018-05 Yes [id number] 1 tab SL [facility] in 0.4 mg 0-29 q5min up ity of sublingual 00:00: to 3 doses [place] tablet 00 PRN chest Medical pain, then Branch activate 911. DULoxetine 2018-05 Yes [id number] 30mg Take 1 [facility] 30 mg 0-29 capsule by ity of capsule 00:00: mouth [place] 00 daily. [facility] pantoprazol 2018-05 Yes [id number] 40mg Take 1 [facility] e 40 mg EC 0-29 tablet by ity of tablet 00:00: mouth [place] 00 daily. [facility] potassium 2018-05 Yes [id number] 10meq Take 1 U nivers chloride 10 0-29 tablet by ity of mEq CR 00:00: mouth [place] tablet 00 daily. [facility] albuterol 2018-05 Yes [id number] 2{puff} Inhale 2 [facility] 90 0-29 Puffs ity of mcg/actuati 00:00: every 6 [place] inhaler 00 (six) Medical hours as Branch needed for Wheezing or Shortness of Breath. nitroglycer 2018-05 Yes [id number] 1 tab SL [facility] in 0.4 mg 0-29 q5min up ity of sublingual 00:00: to 3 doses [place] tablet 00 PRN chest Medical pain, then Branch activate 911. DULoxetine 2018-05 Yes [id number] 30mg Take 1 [facility] 30 mg 0-29 capsule by ity of capsule 00:00: mouth [place] 00 daily. [facility] pantoprazol 2018-05 Yes [id number] 40mg Take 1 [facility] e 40 mg EC 0-29 tablet by ity of tablet 00:00: mouth [place] 00 daily. [facility] potassium 2018-05 Yes [id number] 10meq Take 1 U nivers chloride 10 0-29 tablet by ity of mEq CR 00:00: mouth [place] tablet 00 daily. [facility] albuterol 2018-05 Yes [id number] 2{puff} Inhale 2 [facility] 90 0-29 Puffs ity of mcg/actuati 00:00: every 6 [place] inhaler 00 (six) Medical hours as Branch needed for Wheezing or Shortness of Breath. nitroglycer 2018-05 Yes [id number] 1 tab SL [facility] in 0.4 mg 0-29 q5min up ity of sublingual 00:00: to 3 doses [place] tablet 00 PRN chest Medical pain, then Branch activate 911. DULoxetine 2018-05 Yes [id number] 30mg Take 1 [facility] 30 mg 0-29 capsule by ity of capsule 00:00: mouth [place] 00 daily. [facility] Branch pantoprazol 2018-05 Yes [id number] 40mg Take 1 [facility] e 40 mg EC 0-29 tablet by ity of tablet 00:00: mouth [place] 00 daily. Medical Branch potassium 2018-05 Yes [id number] 10meq Take 1 U nivers chloride 10 0-29 tablet by ity of mEq CR 00:00: mouth [place] tablet 00 daily. [facility] Branch albuterol 2018-05 Yes [id number] 2{puff} Inhale 2 [facility] 90 0-29 Puffs ity of mcg/actuati 00:00: every 6 [place] inhaler 00 (six) Medical hours as Branch needed for Wheezing or Shortness of Breath. nitroglycer 2018-05 Yes [id number] 1 tab SL [facility] in 0.4 mg 0-29 q5min up ity of sublingual 00:00: to 3 doses [place] tablet 00 PRN chest Medical pain, then Branch activate 911. DULoxetine 2018-05 Yes [id number] 30mg Take 1 [facility] 30 mg 0-29 capsule by ity of capsule 00:00: mouth [place] 00 daily. [facility] Branch pantoprazol 2018-05 Yes [id number] 40mg Take 1 [facility] e 40 mg EC 0-29 tablet by ity of tablet 00:00: mouth [place] 00 daily. Medical Branch potassium 2018-05 Yes [id number] 10meq Take 1 U nivers chloride 10 0-29 tablet by ity of mEq CR 00:00: mouth [place] tablet 00 daily. [facility] Branch albuterol 2018-05 Yes [id number] 2{puff} Inhale 2 [facility] 90 0-29 Puffs ity of mcg/actuati 00:00: every 6 [place] inhaler 00 (six) Medical hours as Branch needed for Wheezing or Shortness of Breath. nitroglycer 2018-05 Yes [id number] 1 tab SL [facility] in 0.4 mg 0-29 q5min up ity of sublingual 00:00: to 3 doses [place] tablet 00 PRN chest Medical pain, then Branch activate 911. DULoxetine 2018-05 Yes [id number] 30mg Take 1 [facility] 30 mg 0-29 capsule by ity of capsule 00:00: mouth [place] 00 daily. Medical Branch pantoprazol 2018-05 Yes [id number] 40mg Take 1 [facility] e 40 mg EC 0-29 tablet by ity of tablet 00:00: mouth [place] 00 daily. Medical Branch potassium 2018-05 Yes [id number] 10meq Take 1 U nivers chloride 10 0-29 tablet by ity of mEq CR 00:00: mouth [place] tablet 00 daily. [facility] Branch albuterol 2018-05 Yes [id number] 2{puff} Inhale 2 [facility] 90 0-29 Puffs ity of mcg/actuati 00:00: every 6 [place] inhaler 00 (six) Medical hours as Branch needed for Wheezing or Shortness of Breath. nitroglycer 2018-05 Yes [id number] 1 tab SL [facility] in 0.4 mg 0-29 q5min up ity of sublingual 00:00: to 3 doses [place] tablet 00 PRN chest Medical pain, then Branch activate 911. DULoxetine 2018-05 Yes [id number] 30mg Take 1 [facility] 30 mg 0-29 capsule by ity of capsule 00:00: mouth [place] 00 daily. Medical Branch pantoprazol 2018-05 Yes [id number] 40mg Take 1 [facility] e 40 mg EC 0-29 tablet by ity of tablet 00:00: mouth [place] 00 daily. Medical [facility] potassium 2018-05 Yes [id number] 10meq Take 1 U nivers chloride 10 0-29 tablet by ity of mEq CR 00:00: mouth [place] tablet 00 daily. [facility] albuterol 2018-05 Yes [id number] 2{puff} Inhale 2 [facility] 90 0-29 Puffs ity of mcg/actuati 00:00: every 6 [place] inhaler 00 (six) Medical hours as Branch needed for Wheezing or Shortness of Breath. nitroglycer 2018-05 Yes [id number] 1 tab SL [facility] in 0.4 mg 0-29 q5min up ity of sublingual 00:00: to 3 doses [place] tablet 00 PRN chest Medical pain, then Branch activate 911. DULoxetine 2018-05 Yes [id number] 30mg Take 1 [facility] 30 mg 0-29 capsule by ity of capsule 00:00: mouth [place] 00 daily. [facility] pantoprazol 2018-05 Yes [id number] 40mg Take 1 [facility] e 40 mg EC 0-29 tablet by ity of tablet 00:00: mouth [place] 00 daily. Medical Branch potassium 2018-05 Yes [id number] 10meq Take 1 U nivers chloride 10 0-29 tablet by ity of mEq CR 00:00: mouth [place] tablet 00 daily. [facility] Branch albuterol 2018-05 Yes [id number] 2{puff} Inhale 2 [facility] 90 0-29 Puffs ity of mcg/actuati 00:00: every 6 [place] inhaler 00 (six) Medical hours as Branch needed for Wheezing or Shortness of Breath. nitroglycer 2018-05 Yes [id number] 1 tab SL [facility] in 0.4 mg 0-29 q5min up ity of sublingual 00:00: to 3 doses [place] tablet 00 PRN chest Medical pain, then Branch activate 911. DULoxetine 2018-05 Yes [id number] 30mg Take 1 [facility] 30 mg 0-29 capsule by ity of capsule 00:00: mouth [place] 00 daily. [facility] Branch pantoprazol 2018-05 Yes [id number] 40mg Take 1 [facility] e 40 mg EC 0-29 tablet by ity of tablet 00:00: mouth [place] 00 daily. Medical Branch potassium 2018-05 Yes [id number] 10meq Take 1 U nivers chloride 10 0-29 tablet by ity of mEq CR 00:00: mouth [place] tablet 00 daily. [facility] Branch albuterol 2018-05 Yes [id number] 2{puff} Inhale 2 [facility] 90 0-29 Puffs ity of mcg/actuati 00:00: every 6 [place] inhaler 00 (six) Medical hours as Branch needed for Wheezing or Shortness of Breath. nitroglycer 2018-05 Yes [id number] 1 tab SL [facility] in 0.4 mg 0-29 q5min up ity of sublingual 00:00: to 3 doses [place] tablet 00 PRN chest Medical pain, then Branch activate 911. DULoxetine 2018-05 Yes [id number] 30mg Take 1 [facility] 30 mg 0-29 capsule by ity of capsule 00:00: mouth [place] 00 daily. [facility] Branch pantoprazol 2018-05 Yes [id number] 40mg Take 1 [facility] e 40 mg EC 0-29 tablet by ity of tablet 00:00: mouth [place] 00 daily. [facility] Branch potassium 2018-05 Yes [id number] 10meq Take 1 U nivers chloride 10 0-29 tablet by ity of mEq CR 00:00: mouth [place] tablet 00 daily. [facility] Branch albuterol 2018-05 Yes [id number] 2{puff} Inhale 2 [facility] 90 0-29 Puffs ity of mcg/actuati 00:00: every 6 [place] inhaler 00 (six) Medical hours as Branch needed for Wheezing or Shortness of Breath. nitroglycer 2018-05 Yes [id number] 1 tab SL [facility] in 0.4 mg 0-29 q5min up ity of sublingual 00:00: to 3 doses [place] tablet 00 PRN chest Medical pain, then Branch activate 911. DULoxetine 2018-05 Yes [id number] 30mg Take 1 [facility] 30 mg 0-29 capsule by ity of capsule 00:00: mouth [place] 00 daily. [facility] Branch pantoprazol 2018-05 Yes [id number] 40mg Take 1 [facility] e 40 mg EC 0-29 tablet by ity of tablet 00:00: mouth [place] 00 daily. Medical Branch potassium 2018-05 Yes [id number] 10meq Take 1 U nivers chloride 10 0-29 tablet by ity of mEq CR 00:00: mouth [place] tablet 00 daily. [facility] Branch albuterol 2018-05 Yes [id number] 2{puff} Inhale 2 [facility] 90 0-29 Puffs ity of mcg/actuati 00:00: every 6 [place] inhaler 00 (six) Medical hours as Branch needed for Wheezing or Shortness of Breath. nitroglycer 2018-05 Yes [id number] 1 tab SL [facility] in 0.4 mg 0-29 q5min up ity of sublingual 00:00: to 3 doses [place] tablet 00 PRN chest Medical pain, then Branch activate 911. DULoxetine 2018-05 Yes [id number] 30mg Take 1 [facility] 30 mg 0-29 capsule by ity of capsule 00:00: mouth [place] 00 daily. [facility] Branch albuterol 2018-05 Yes [id number] 2{puff} Inhale 2 [facility] 90 0-29 Puffs ity of mcg/actuati 00:00: every 6 [place] inhaler 00 (six) Medical hours as Branch needed for Wheezing or Shortness of Breath. nitroglycer 2018-05 Yes [id number] 1 tab SL [facility] in 0.4 mg 0-29 q5min up ity of sublingual 00:00: to 3 doses [place] tablet 00 PRN chest Medical pain, then Branch activate 911. DULoxetine 2018-05 Yes [id number] 30mg Take 1 [facility] 30 mg 0-29 capsule by ity of capsule 00:00: mouth [place] 00 daily. [facility] Branch albuterol 2018-05 Yes [id number] 2{puff} Inhale 2 [facility] 90 0-29 Puffs ity of mcg/actuati 00:00: every 6 [place] inhaler 00 (six) Medical hours as Branch needed for Wheezing or Shortness of Breath. nitroglycer 2018-05 Yes [id number] 1 tab SL [facility] in 0.4 mg 0-29 q5min up ity of sublingual 00:00: to 3 doses [place] tablet 00 PRN chest Medical pain, then Branch activate 911. albuterol 2018-05 Yes [id number] 2{puff} Inhale 2 [facility] 90 0-29 Puffs ity of mcg/actuati 00:00: every 6 [place] inhaler 00 (six) Medical hours as Branch needed for Wheezing or Shortness of Breath. nitroglycer 2018-05 Yes [id number] 1 tab SL [facility] in 0.4 mg 0-29 q5min up ity of sublingual 00:00: to 3 doses [place] tablet 00 PRN chest Medical pain, then Branch activate 911. albuterol 2018-05 Yes [id number] 2{puff} Inhale 2 [facility] 90 0-29 Puffs ity of mcg/actuati 00:00: every 6 [place] inhaler 00 (six) Medical hours as Branch needed for Wheezing or Shortness of Breath. nitroglycer 2018-05 Yes [id number] 1 tab SL [facility] in 0.4 mg 0-29 q5min up ity of sublingual 00:00: to 3 doses [place] tablet 00 PRN chest Medical pain, then Branch activate 911. albuterol 2018-05 Yes [id number] 2{puff} Inhale 2 [facility] 90 0-29 Puffs ity of mcg/actuati 00:00: every 6 [place] inhaler 00 (six) Medical hours as Branch needed for Wheezing or Shortness of Breath. nitroglycer 2018-05 Yes [id number] 1 tab SL [facility] in 0.4 mg 0-29 q5min up ity of sublingual 00:00: to 3 doses [place] tablet 00 PRN chest Medical pain, then Branch activate 911. albuterol 2018-05 Yes [id number] 2{puff} Inhale 2 [facility] 90 0-29 Puffs ity of mcg/actuati 00:00: every 6 [place] inhaler 00 (six) Medical hours as Branch needed for Wheezing or Shortness of Breath. nitroglycer 2018-05 Yes [id number] 1 tab SL [facility] in 0.4 mg 0-29 q5min up ity of sublingual 00:00: to 3 doses [place] tablet 00 PRN chest Medical pain, then Branch activate 911. albuterol 2018-05 Yes [id number] 2{puff} Inhale 2 [facility] 90 0-29 Puffs ity of mcg/actuati 00:00: every 6 [place] inhaler 00 (six) Medical hours as Branch needed for Wheezing or Shortness of Breath. nitroglycer 2018-05 Yes [id number] 1 tab SL [facility] in 0.4 mg 0-29 q5min up ity of sublingual 00:00: to 3 doses [place] tablet 00 PRN chest Medical pain, then Branch activate 911. albuterol 2018-05 Yes [id number] 2{puff} Inhale 2 [facility] 90 0-29 Puffs ity of mcg/actuati 00:00: every 6 [place] inhaler 00 (six) Medical hours as Branch needed for Wheezing or Shortness of Breath. nitroglycer 2018-05 Yes [id number] 1 tab SL [facility] in 0.4 mg 0-29 q5min up ity of sublingual 00:00: to 3 doses [place] tablet 00 PRN chest Medical pain, then Branch activate 911. albuterol 2018-05 Yes [id number] 2{puff} Inhale 2 [facility] 90 0-29 Puffs ity of mcg/actuati 00:00: every 6 [place] inhaler 00 (six) Medical hours as Branch needed for Wheezing or Shortness of Breath. nitroglycer 2018-05 Yes [id number] 1 tab SL [facility] in 0.4 mg 0-29 q5min up ity of sublingual 00:00: to 3 doses [place] tablet 00 PRN chest Medical pain, then Branch activate 911. albuterol 2018-05 Yes [id number] 2{puff} Inhale 2 [facility] 90 0-29 Puffs ity of mcg/actuati 00:00: every 6 [place] inhaler 00 (six) Medical hours as Branch needed for Wheezing or Shortness of Breath. nitroglycer 2018-05 Yes [id number] 1 tab SL [facility] in 0.4 mg 0-29 q5min up ity of sublingual 00:00: to 3 doses [place] tablet 00 PRN chest Medical pain, then Branch activate 911. albuterol 2018-05 Yes [id number] 2{puff} Inhale 2 [facility] 90 0-29 Puffs [facility] of mcg/actuati 00:00: every 6 [place] inhaler 00 (six) Medical hours as Branch needed for Wheezing or Shortness of Breath. nitroglycer 2018-05 Yes [id number] 1 tab SL [facility] in 0.4 mg 0-29 q5min up [facility] of sublingual 00:00: to 3 doses [place] tablet 00 PRN chest Medical pain, then Branch activate 911. albuterol 2018-05 Yes [id number] 2{puff} Inhale 2 [facility] 90 0-29 Puffs [facility] of mcg/actuati 00:00: every 6 [place] inhaler 00 (six) Medical hours as Branch needed for Wheezing or Shortness of Breath. nitroglycer 2018-05 Yes [id number] 1 tab SL [facility] in 0.4 mg 0-29 q5min up [facility] of sublingual 00:00: to 3 doses [place] tablet 00 PRN chest Medical pain, then Branch activate 911. albuterol 2018-05 Yes [id number] 2{puff} Inhale 2 [facility] 90 0-29 Puffs [facility] of mcg/actuati 00:00: every 6 [place] inhaler 00 (six) Medical hours as Branch needed for Wheezing or Shortness of Breath. nitroglycer 2018-05 Yes [id number] 1 tab SL [facility] in 0.4 mg 0-29 q5min up [facility] of sublingual 00:00: to 3 doses [place] tablet 00 PRN chest Medical pain, then Branch activate 911. albuterol 2018-05 Yes [id number] 2{puff} Inhale 2 [facility] 90 0-29 Puffs [facility] of mcg/actuati 00:00: every 6 [place] inhaler 00 (six) Medical hours as Branch needed for Wheezing or Shortness of Breath. nitroglycer 2018-05 Yes [id number] 1 tab SL [facility] in 0.4 mg 0-29 q5min up [facility] of sublingual 00:00: to 3 doses [place] tablet 00 PRN chest Medical pain, then Branch activate 911. albuterol 2018-05 Yes [id number] 2{puff} Inhale 2 [facility] 90 0-29 Puffs [facility] of mcg/actuati 00:00: every 6 [place] inhaler 00 (six) Medical hours as Branch needed for Wheezing or Shortness of Breath. nitroglycer 2018-05 Yes [id number] 1 tab [facility] in 0.4 mg 0-29 q5min up [facility] of sublingual 00:00: to 3 doses [place] tablet 00 PRN chest Medical pain, then Branch activate 911. albuterol 2018-05 Yes [id number] 2{puff} Inhale 2 [facility] 90 0-29 Puffs [facility] of mcg/actuati 00:00: every 6 [place] inhaler 00 (six) Medical hours as Branch needed for Wheezing or Shortness of Breath. nitroglycer 2018-05 Yes [id number] 1 tab SL [facility] in 0.4 mg 0-29 q5min up [facility] of sublingual 00:00: to 3 doses [place] tablet 00 PRN chest Medical pain, then Branch activate 911. albuterol 2018-05 Yes [id number] 2{puff} Inhale 2 [facility] 90 0-29 Puffs it[facility] of mcg/actuati 00:00: every 6 [place] inhaler 00 (six) Medical hours as Branch needed for Wheezing or Shortness of Breath. nitroglycer 2018-05 Yes [id number] 1 tab SL [facility] in 0.4 mg 0-29 q5min up [facility] of sublingual 00:00: to 3 doses [place] tablet 00 PRN chest Medical pain, then Branch activate 911. albuterol 2018-05 Yes [id number] 2{puff} Inhale 2 [facility] 90 0-29 Puffs ity of mcg/actuati 00:00: every 6 [place] inhaler 00 (six) Medical hours as Branch needed for Wheezing or Shortness of Breath. nitroglycer 2018-05 Yes [id number] 1 tab [facility] in 0.4 mg 0-29 q5min up [facility] of sublingual 00:00: to 3 doses [place] tablet 00 PRN chest Medical pain, then Branch activate 911. albuterol 2018-05 Yes [id number] 2{puff} Inhale 2 [facility] 90 0-29 Puffs ity of mcg/actuati 00:00: every 6 [place] inhaler 00 (six) Medical hours as Branch needed for Wheezing or Shortness of Breath. nitroglycer 2018-05 Yes [id number] 1 tab [facility] in 0.4 mg 0-29 q5min up [facility] of sublingual 00:00: to 3 doses [place] tablet 00 PRN chest Medical pain, then Branch activate 911. albuterol 2018-05 Yes [id number] 2{puff} Inhale 2 [facility] 90 0-29 Puffs it[facility] of mcg/actuati 00:00: every 6 [place] inhaler 00 (six) Medical hours as Branch needed for Wheezing or Shortness of Breath. nitroglycer 2018-05 Yes [id number] 1 tab [facility] in 0.4 mg 0-29 q5min up it[facility] of sublingual 00:00: to 3 doses [place] tablet 00 PRN chest Medical pain, then Branch activate 911. albuterol 2018-05 Yes [id number] 2{puff} Inhale 2 [facility] 90 0-29 Puffs it[facility] of mcg/actuati 00:00: every 6 [place] inhaler 00 (six) Medical hours as Branch needed for Wheezing or Shortness of Breath. nitroglycer 2018-05 Yes [id number] 1 tab [facility] in 0.4 mg 0-29 q5min up [facility] of sublingual 00:00: to 3 doses [place] tablet 00 PRN chest Medical pain, then Branch activate 911. albuterol 2018-05 Yes [id number] 2{puff} Inhale 2 [facility] 90 0-29 Puffs ity of mcg/actuati 00:00: every 6 [place] inhaler 00 (six) Medical hours as Branch needed for Wheezing or Shortness of Breath. nitroglycer 2018-05 Yes [id number] 1 tab [facility] in 0.4 mg 0-29 q5min up it[facility] of sublingual 00:00: to 3 doses [place] tablet 00 PRN chest Medical pain, then Branch activate 911. albuterol 2018-05 Yes [id number] 2{puff} Inhale 2 [facility] 90 0-29 Puffs ity of mcg/actuati 00:00: every 6 [place] on inhaler 00 (six) Medical hours as Branch needed for Wheezing or Shortness of Breath. nitroglycer 2018-05 Yes [id number] 1 tab [facility] in 0.4 mg 0-29 q5min up it[facility] of sublingual 00:00: to 3 doses [place] tablet 00 PRN chest Medical pain, then Branch activate 911. albuterol 2018-05 Yes [id number] 2{puff} Inhale 2 [facility] 90 0-29 Puffs [facility] of mcg/actuati 00:00: every 6 [place] on inhaler 00 (six) Medical hours as Branch needed for Wheezing or Shortness of Breath. nitroglycer 2018-05 Yes [id number] 1 tab [facility] in 0.4 mg 0-29 q5min up [facility] of sublingual 00:00: to 3 doses [place] tablet 00 PRN chest Medical pain, then Branch activate 911. albuterol 2018-05 Yes [id number] 2{puff} Inhale 2 [facility] 90 0-29 Puffs it[facility] of mcg/actuati 00:00: every 6 [place] on inhaler 00 (six) Medical hours as Branch needed for Wheezing or Shortness of Breath. nitroglycer 2018-05 Yes [id number] 1 tab [facility] in 0.4 mg 0-29 q5min up [facility] of sublingual 00:00: to 3 doses [place] tablet 00 PRN chest Medical pain, then Branch activate 911. nitroglycer 2018-05 Yes [id number] 1 tab [facility] in 0.4 mg 0-29 q5min up ity of sublingual 00:00: to 3 doses [place] tablet 00 PRN chest Medical pain, then Branch activate 911. nitroglycer 2018-05 Yes [id number] 1 tab [facility] in 0.4 mg 0-29 q5min up ity of sublingual 00:00: to 3 doses [place] tablet 00 PRN chest Medical pain, then Branch activate 911. nitroglycer 2018-05 Yes [id number] 1 tab [facility] in 0.4 mg 0-29 q5min up ity of sublingual 00:00: to 3 doses [place] tablet 00 PRN chest Medical pain, then Branch activate 911. nitroglycer 2018-05 Yes [id number] 1 tab [facility] in 0.4 mg 0-29 q5min up ity of sublingual 00:00: to 3 doses [place] tablet 00 PRN chest Medical pain, then Branch activate 911. nitroglycer 2018-05 Yes [id number] 1 tab [facility] in 0.4 mg 0-29 q5min up ity of sublingual 00:00: to 3 doses [place] tablet 00 PRN chest Medical pain, then Branch activate 911. nitroglycer 2018-05 Yes [id number] 1 tab [facility] in 0.4 mg 0-29 q5min up ity of sublingual 00:00: to 3 doses [place] tablet 00 PRN chest Medical pain, then Branch activate 911. nitroglycer 2018-05 Yes [id number] 1 tab [facility] in 0.4 mg 0-29 q5min up ity of sublingual 00:00: to 3 doses [place] tablet 00 PRN chest Medical pain, then Branch activate 911. nitroglycer 2018-05 Yes [id number] 1 tab [facility] in 0.4 mg 0-29 q5min up ity of sublingual 00:00: to 3 doses [place] tablet 00 PRN chest Medical pain, then Branch activate 911. nitroglycer 2018-05 Yes [id number] 1 tab [facility] in 0.4 mg 0-29 q5min up ity of sublingual 00:00: to 3 doses [place] tablet 00 PRN chest Medical pain, then Branch activate 911. nitroglycer 2018-05 Yes [id number] 1 tab [facility] in 0.4 mg 0-29 q5min up ity of sublingual 00:00: to 3 doses [place] tablet 00 PRN chest Medical pain, then Branch activate 911. nitroglycer 2018-05 Yes [id number] 1 tab [facility] in 0.4 mg 0-29 q5min up ity of sublingual 00:00: to 3 doses [place] tablet 00 PRN chest Medical pain, then Branch activate 911. nitroglycer 2018-05 Yes [id number] 1 tab [facility] in 0.4 mg 0-29 q5min up ity of sublingual 00:00: to 3 doses [place] tablet 00 PRN chest Medical pain, then Branch activate 911. nitroglycer 2018-05 Yes [id number] 1 tab SL [facility] in 0.4 mg 0-29 q5min up ity of sublingual 00:00: to 3 doses [place] tablet 00 PRN chest Medical pain, then Branch activate 911. nitroglycer 2018-05 Yes [id number] 1 tab [facility] in 0.4 mg 0-29 q5min up ity of sublingual 00:00: to 3 doses [place] tablet 00 PRN chest Medical pain, then Branch activate 911. nitroglycer 2018-05 Yes [id number] 1 tab [facility] in 0.4 mg 0-29 q5min up ity of sublingual 00:00: to 3 doses [place] tablet 00 PRN chest Medical pain, then Branch activate 911. nitroglycer 2018-05 Yes [id number] 1 tab SL [facility] in 0.4 mg 0-29 q5min up ity of sublingual 00:00: to 3 doses [place] tablet 00 PRN chest Medical pain, then Branch activate 911. nitroglycer 2018-05 Yes [id number] 1 tab [facility] in 0.4 mg 0-29 q5min up ity of sublingual 00:00: to 3 doses [place] tablet 00 PRN chest Medical pain, then Branch activate 911. nitroglycer 2018-05 Yes [id number] 1 tab [facility] in 0.4 mg 0-29 q5min up ity of sublingual 00:00: to 3 doses [place] tablet 00 PRN chest Medical pain, then Branch activate 911. nitroglycer 2018-05 Yes [id number] 1 tab [facility] in 0.4 mg 0-29 q5min up ity of sublingual 00:00: to 3 doses [place] tablet 00 PRN chest Medical pain, then Branch activate 911. nitroglycer 2018-05 Yes [id number] 1 tab [facility] in 0.4 mg 0-29 q5min up ity of sublingual 00:00: to 3 doses [place] tablet 00 PRN chest Medical pain, then Branch activate 911. nitroglycer 2018-05 Yes [id number] 1 tab [facility] in 0.4 mg 0-29 q5min up ity of sublingual 00:00: to 3 doses [place] tablet 00 PRN chest Medical pain, then Branch activate 911. nitroglycer 2018-05 Yes [id number] 1 tab SL [facility] in 0.4 mg 0-29 q5min up ity of sublingual 00:00: to 3 doses [place] tablet 00 PRN chest Medical pain, then Branch activate 911. nitroglycer 2018-05 Yes [id number] 1 tab [facility] in 0.4 mg 0-29 q5min up ity of sublingual 00:00: to 3 doses [place] tablet 00 PRN chest Medical pain, then Branch activate 911. nitroglycer 2018-05 Yes [id number] 1 tab SL [facility] in 0.4 mg 0-29 q5min up ity of sublingual 00:00: to 3 doses [place] tablet 00 PRN chest Medical pain, then Branch activate 911. nitroglycer 2018-05 Yes [id number] 1 tab SL [facility] in 0.4 mg 0-29 q5min up ity of sublingual 00:00: to 3 doses [place] tablet 00 PRN chest Medical pain, then Branch activate 911. nitroglycer 2018-05 Yes [id number] 1 tab SL [facility] in 0.4 mg 0-29 q5min up ity of sublingual 00:00: to 3 doses [place] tablet 00 PRN chest Medical pain, then Branch activate 911. nitroglycer 2018-05 Yes [id number] 1 tab SL [facility] in 0.4 mg 0-29 q5min up ity of sublingual 00:00: to 3 doses [place] tablet 00 PRN chest Medical pain, then Branch activate 911. nitroglycer 2018-05 Yes [id number] 1 tab SL [facility] in 0.4 mg 0-29 q5min up ity of sublingual 00:00: to 3 doses [place] tablet 00 PRN chest Medical pain, then Branch activate 911. nitroglycer 2018-05 Yes [id number] 1 tab SL [facility] in 0.4 mg 0-29 q5min up ity of sublingual 00:00: to 3 doses [place] tablet 00 PRN chest Medical pain, then Branch activate 911. nitroglycer 2018-05 Yes [id number] 1 tab SL [facility] in 0.4 mg 0-29 q5min up ity of sublingual 00:00: to 3 doses [place] tablet 00 PRN chest Medical pain, then Branch activate 911. nitroglycer 2018-05 Yes [id number] 1 tab [facility] in 0.4 mg 0-29 q5min up ity of sublingual 00:00: to 3 doses [place] tablet 00 PRN chest Medical pain, then Branch activate 911. nitroglycer 2018-05 Yes [id number] 1 tab [facility] in 0.4 mg 0-29 q5min up ity of sublingual 00:00: to 3 doses [place] tablet 00 PRN chest Medical pain, then Branch activate 911. nitroglycer 2018-05 Yes [id number] 1 tab [facility] in 0.4 mg 0-29 q5min up ity of sublingual 00:00: to 3 doses [place] tablet 00 PRN chest Medical pain, then Branch activate 911. nitroglycer 2018-05 Yes [id number] 1 tab SL [facility] in 0.4 mg 0-29 q5min up ity of sublingual 00:00: to 3 doses [place] tablet 00 PRN chest Medical pain, then Branch activate 911. nitroglycer 2018-05 Yes [id number] 1 tab SL [facility] in 0.4 mg 0-29 q5min up ity of sublingual 00:00: to 3 doses [place] tablet 00 PRN chest Medical pain, then Branch activate 911. nitroglycer 2018-05 Yes [id number] 1 tab SL [facility] in 0.4 mg 0-29 q5min up ity of sublingual 00:00: to 3 doses [place] tablet 00 PRN chest Medical pain, then Branch activate 911. nitroglycer 2018-05 Yes [id number] 1 tab [facility] in 0.4 mg 0-29 q5min up ity of sublingual 00:00: to 3 doses [place] tablet 00 PRN chest Medical pain, then Branch activate 911. nitroglycer 2018-05 Yes [id number] 1 tab SL [facility] in 0.4 mg 0-29 q5min up ity of sublingual 00:00: to 3 doses [place] tablet 00 PRN chest Medical pain, then Branch activate 911. nitroglycer 2018-05 Yes [id number] 1 tab SL [facility] in 0.4 mg 0-29 q5min up [facility]y of sublingual 00:00: to 3 doses [place] tablet 00 PRN chest Medical pain, then Branch activate 911. nitroglycer 2018-05 Yes [id number] 1 tab SL [facility] in 0.4 mg 0-29 q5min up [facility]y of sublingual 00:00: to 3 doses [place] tablet 00 PRN chest Medical pain, then Branch activate 911. nitroglycer 2018-05 Yes [id number] 1 tab SL [facility] in 0.4 mg 0-29 q5min up ity of sublingual 00:00: to 3 doses [place] tablet 00 PRN chest Medical pain, then Branch activate 911. nitroglycer 2018-05 Yes [id number] 1 tab SL [facility] in 0.4 mg 0-29 q5min up ity of sublingual 00:00: to 3 doses [place] tablet 00 PRN chest Medical pain, then Branch activate 911. nitroglycer 2018-05 Yes [id number] 1 tab SL [facility] in 0.4 mg 0-29 q5min up ity of sublingual 00:00: to 3 doses [place] tablet 00 PRN chest Medical pain, then Branch activate 911. nitroglycer 2018-05 Yes [id number] 1 tab SL [facility] in 0.4 mg 0-29 q5min up ity of sublingual 00:00: to 3 doses [place] tablet 00 PRN chest Medical pain, then Branch activate 911. nitroglycer 2018-05 Yes [id number] 1 tab SL [facility] in 0.4 mg 0-29 q5min up ity of sublingual 00:00: to 3 doses [place] tablet 00 PRN chest Medical pain, then Branch activate 911. atorvastati 2018-05 Yes [id number] 40mg Take 1 [facility] n (LIPITOR) 0-29 tablet by ity of 40 mg 00:00: mouth at [place] tablet 00 bedtime. Medical [facility] clopidogrel 2018-05 Yes [id number] 75mg Take 1 [facility] (PLAVIX) 75 0-29 tablet by ity of mg tablet 00:00: mouth [place] 00 daily. [facility] DULoxetine 2018-05 Yes [id number] 30mg Take 1 [facility] 30 mg 0-29 capsule by ity of capsule 00:00: mouth [place] 00 daily. [facility] pantoprazol 2018-05 Yes [id number] 40mg Take 1 [facility] e 40 mg EC 0-29 tablet by ity of tablet 00:00: mouth [place] 00 daily. [facility] potassium 2018-05 Yes [id number] 10meq Take 1 [facility] n[facility] chloride 10 0-29 tablet by ity of mEq CR 00:00: mouth [place] tablet 00 daily. [facility] albuterol 2018-05 Yes [id number] 2{puff} Inhale 2 [facility] 90 0-29 Puffs ity of mcg/actuati 00:00: every 6 [place] on inhaler 00 (six) Medical hours as Branch needed for Wheezing or Shortness of Breath. nitroglycer 2018-05 Yes [id number] 1 tab SL [facility] in 0.4 mg 0-29 q5min up ity of sublingual 00:00: to 3 doses [place] tablet 00 PRN chest Medical pain, then Branch activate 911. atorvastati 2018-05 Yes [id number] 40mg Take 1 [facility] n (LIPITOR) 0-29 tablet by ity of 40 mg 00:00: mouth at [place] tablet 00 bedtime. [facility] clopidogrel 2018-05 Yes [id number] 75mg Take 1 [facility] (PLAVIX) 75 0-29 tablet by ity of mg tablet 00:00: mouth [place] 00 daily. [facility] DULoxetine 2018-05 Yes [id number] 30mg Take 1 [facility] 30 mg 0-29 capsule by ity of capsule 00:00: mouth [place] 00 daily. [facility] pantoprazol 2018-05 Yes [id number] 40mg Take 1 [facility] e 40 mg EC 0-29 tablet by ity of tablet 00:00: mouth [place] 00 daily. [facility] potassium 2018-05 Yes [id number] 10meq Take 1 [facility] n[facility] chloride 10 0-29 tablet by ity of mEq CR 00:00: mouth [place] tablet 00 daily. [facility] albuterol 2018-05 Yes [id number] 2{puff} Inhale 2 [facility] 90 0-29 Puffs ity of mcg/actuati 00:00: every 6 [place] on inhaler 00 (six) Medical hours as Branch needed for Wheezing or Shortness of Breath. nitroglycer 2018-05 Yes [id number] 1 tab SL [facility] in 0.4 mg 0-29 q5min up ity of sublingual 00:00: to 3 doses [place] tablet 00 PRN chest Medical pain, then Branch activate 911. atorvastati 2018-05 Yes [id number] 40mg Take 1 [facility] n (LIPITOR) 0-29 tablet by ity of 40 mg 00:00: mouth at [place] tablet 00 bedtime. [facility] clopidogrel 2018-05 Yes [id number] 75mg Take 1 [facility] (PLAVIX) 75 0-29 tablet by ity of mg tablet 00:00: mouth [place] 00 daily. [facility] DULoxetine 2018-05 Yes [id number] 30mg Take 1 [facility] 30 mg 0-29 capsule by ity of capsule 00:00: mouth [place] 00 daily. [facility] pantoprazol 2018-05 Yes [id number] 40mg Take 1 [facility] e 40 mg EC 0-29 tablet by ity of tablet 00:00: mouth [place] 00 daily. [facility] potassium 2018-05 Yes [id number] 10meq Take 1 [facility] chloride 10 0-29 tablet by ity of mEq CR 00:00: mouth [place] tablet 00 daily. [facility] albuterol 2018-05 Yes [id number] 2{puff} Inhale 2 [facility] 90 0-29 Puffs ity of mcg/actuati 00:00: every 6 [place] on inhaler 00 (six) Medical hours as Branch needed for Wheezing or Shortness of Breath. nitroglycer 2018-05 Yes [id number] 1 tab SL [facility] in 0.4 mg 0-29 q5min up ity of sublingual 00:00: to 3 doses [place] tablet 00 PRN chest Medical pain, then Branch activate 911. atorvastati 2018-05 Yes [id number] 40mg Take 1 [facility] n (LIPITOR) 0-29 tablet by ity of 40 mg 00:00: mouth at [place] tablet 00 bedtime. [facility] clopidogrel 2018-05 Yes [id number] 75mg Take 1 [facility] (PLAVIX) 75 0-29 tablet by ity of mg tablet 00:00: mouth [place] 00 daily. [facility] DULoxetine 2018-05 Yes [id number] 30mg Take 1 [facility] 30 mg 0-29 capsule by ity of capsule 00:00: mouth [place] 00 daily. [facility] pantoprazol 2018-05 Yes [id number] 40mg Take 1 [facility] e 40 mg EC 0-29 tablet by ity of tablet 00:00: mouth [place] 00 daily. [facility] potassium 2018-05 Yes [id number] 10meq Take 1 [facility] chloride 10 0-29 tablet by ity of mEq CR 00:00: mouth [place] tablet 00 daily. [facility] albuterol 2018-05 Yes [id number] 2{puff} Inhale 2 [facility] 90 0-29 Puffs ity of mcg/actuati 00:00: every 6 [place] on inhaler 00 (six) Medical hours as Branch needed for Wheezing or Shortness of Breath. nitroglycer 2018-05 Yes [id number] 1 tab SL [facility] in 0.4 mg 0-29 q5min up ity of sublingual 00:00: to 3 doses [place] tablet 00 PRN chest Medical pain, then Branch activate 911. atorvastati 2018-05 Yes [id number] 40mg Take 1 [facility] n (LIPITOR) 0-29 tablet by ity of 40 mg 00:00: mouth at [place] tablet 00 bedtime. [facility] clopidogrel 2018-05 Yes [id number] 75mg Take 1 [facility] (PLAVIX) 75 0-29 tablet by ity of mg tablet 00:00: mouth [place] 00 daily. [facility] DULoxetine 2018-05 Yes [id number] 30mg Take 1 [facility] 30 mg 0-29 capsule by ity of capsule 00:00: mouth [place] 00 daily. [facility] pantoprazol 2018-05 Yes [id number] 40mg Take 1 [facility] e 40 mg EC 0-29 tablet by ity of tablet 00:00: mouth [place] 00 daily. [facility] potassium 2018-05 Yes [id number] 10meq Take 1 [facility] chloride 10 0-29 tablet by [facility]y of mEq CR 00:00: mouth [place] tablet 00 daily. [facility] albuterol 2018-05 Yes [id number] 2{puff} Inhale 2 [facility] 90 0-29 Puffs ity of mcg/actuati 00:00: every 6 [place] on inhaler 00 (six) Medical hours as Branch needed for Wheezing or Shortness of Breath. nitroglycer 2018-05 Yes [id number] 1 tab SL [facility] in 0.4 mg 0-29 q5min up ity of sublingual 00:00: to 3 doses [place] tablet 00 PRN chest Medical pain, then Branch activate 911. atorvastati 2018-05 Yes [id number] 40mg Take 1 [facility] n (LIPITOR) 0-29 tablet by ity of 40 mg 00:00: mouth at [place] tablet 00 bedtime. [facility] clopidogrel 2018-05 Yes [id number] 75mg Take 1 [facility] (PLAVIX) 75 0-29 tablet by ity of mg tablet 00:00: mouth [place] 00 daily. [facility] DULoxetine 2018-05 Yes [id number] 30mg Take 1 [facility] 30 mg 0-29 capsule by ity of capsule 00:00: mouth [place] 00 daily. [facility] pantoprazol 2018-05 Yes [id number] 40mg Take 1 [facility] e 40 mg EC 0-29 tablet by ity of tablet 00:00: mouth [place] 00 daily. [facility] potassium 2018-05 Yes [id number] 10meq Take 1 [facility] chloride 10 0-29 tablet by ity of mEq CR 00:00: mouth [place] tablet 00 daily. [facility] albuterol 2018-05 Yes [id number] 2{puff} Inhale 2 [facility] 90 0-29 Puffs ity of mcg/actuati 00:00: every 6 [place] inhaler 00 (six) Medical hours as Branch needed for Wheezing or Shortness of Breath. nitroglycer 2018-05 Yes [id number] 1 tab SL [facility] in 0.4 mg 0-29 q5min up ity of sublingual 00:00: to 3 doses [place] tablet 00 PRN chest Medical pain, then Branch activate 911. atorvastati 2018-05 Yes [id number] 40mg Take 1 [facility] n (LIPITOR) 0-29 tablet by ity of 40 mg 00:00: mouth at [place] tablet 00 bedtime. [facility] clopidogrel 2018-05 Yes [id number] 75mg Take 1 [facility] (PLAVIX) 75 0-29 tablet by ity of mg tablet 00:00: mouth [place] 00 daily. [facility] DULoxetine 2018-05 Yes [id number] 30mg Take 1 [facility] 30 mg 0-29 capsule by ity of capsule 00:00: mouth [place] 00 daily. [facility] pantoprazol 2018-05 Yes [id number] 40mg Take 1 [facility] e 40 mg EC 0-29 tablet by ity of tablet 00:00: mouth [place] 00 daily. [facility] potassium 2018-05 Yes [id number] 10meq Take 1 [facility] n[facility] chloride 10 0-29 tablet by ity of mEq CR 00:00: mouth [place] tablet 00 daily. [facility] albuterol 2018-05 Yes [id number] 2{puff} Inhale 2 [facility] 90 0-29 Puffs ity of mcg/actuati 00:00: every 6 [place] inhaler 00 (six) Medical hours as Branch needed for Wheezing or Shortness of Breath. nitroglycer 2018-05 Yes [id number] 1 tab SL [facility] in 0.4 mg 0-29 q5min up ity of sublingual 00:00: to 3 doses [place] tablet 00 PRN chest Medical pain, then Branch activate 911. DULoxetine 2018-05 Yes [id number] 30mg Take 1 [facility] 30 mg 0-29 capsule by ity of capsule 00:00: mouth [place] 00 daily. [facility] pantoprazol 2018-05 Yes [id number] 40mg Take 1 [facility] e 40 mg EC 0-29 tablet by ity of tablet 00:00: mouth [place] 00 daily. [facility] potassium 2018-05 Yes [id number] 10meq Take 1 [facility] n[facility] chloride 10 0-29 tablet by ity of mEq CR 00:00: mouth [place] tablet 00 daily. [facility] albuterol 2018-05 Yes [id number] 2{puff} Inhale 2 [facility] 90 0-29 Puffs ity of mcg/actuati 00:00: every 6 [place] inhaler 00 (six) Medical hours as Branch needed for Wheezing or Shortness of Breath. nitroglycer 2018-05 Yes [id number] 1 tab SL [facility] in 0.4 mg 0-29 q5min up ity of sublingual 00:00: to 3 doses [place] tablet 00 PRN chest Medical pain, then Branch activate 911. DULoxetine 2018-05 Yes [id number] 30mg Take 1 [facility] 30 mg 0-29 capsule by ity of capsule 00:00: mouth [place] 00 daily. [facility] pantoprazol 2018-05 Yes [id number] 40mg Take 1 [facility] e 40 mg EC 0-29 tablet by ity of tablet 00:00: mouth [place] 00 daily. [facility] potassium 2018-05 Yes [id number] 10meq Take 1 [facility] n[facility] chloride 10 0-29 tablet by ity of mEq CR 00:00: mouth [place] tablet 00 daily. [facility] albuterol 2018-05 Yes [id number] 2{puff} Inhale 2 [facility] 90 0-29 Puffs ity of mcg/actuati 00:00: every 6 [place] inhaler 00 (six) Medical hours as Branch needed for Wheezing or Shortness of Breath. nitroglycer 2018-05 Yes [id number] 1 tab SL [facility] in 0.4 mg 0-29 q5min up ity of sublingual 00:00: to 3 doses [place] tablet 00 PRN chest Medical pain, then Branch activate 911. DULoxetine 2018-05 Yes [id number] 30mg Take 1 [facility] 30 mg 0-29 capsule by ity of capsule 00:00: mouth [place] 00 daily. [facility] nitroglycer 2018-05 Yes H/O right 1 tab [...] placement pain, then Bran ch activate 911. albuterol 2018-05- No [id number] 2{puff} Inhale 2 [facility] 90 0-29 12-19 Puffs ity of mcg/actuati 00:00: 00:00 every 6 [place] on inhaler 00 :00 (six) Medical hours as Branch needed for Wheezing or Shortness of Breath. albuterol 2018-05- No [id number] 2{puff} Inhale 2 [facility] 90 0-29 12-19 Puffs ity of mcg/actuati 00:00: 00:00 every 6 [place] on inhaler 00 :00 (six) Medical hours as Branch needed for Wheezing or Shortness of Breath. pantoprazol 2018-05 2020- No [id number] 40mg Take 1 [facility] e 40 mg EC 0- 06-08 tablet by ity of tablet 00:00: 00:00 mouth [place] 00 :00 daily. [facility] potassium 2018-05 2020- No [id number] 10meq Take 1 [facility] chloride 10 0- 06-08 tablet by it y of mEq CR 00:00: 00:00 mouth [place] tablet 00 :00 daily. [facility] atorvastati 2018-05 2020- No [id number] 40mg Take 1 [facility] n (LIPITOR) 0- 03-20 tablet by it y of 40 mg 00:00: 00:00 mouth at [place] tablet 00 :00 bedtime. [facility] clopidogrel 2018-05 2020- No [id number] 75mg Take 1 [facility] (PLAVIX) 75 0- 03-20 tablet by it y of mg tablet 00:00: 00:00 mouth [place] 00 :00 daily. [facility] POTASSIUM Yes 1{tbl} Take 1 [facility] ers CHLORIDE 9- tablet by ity of (KLOR-CON 15:12: mouth [place] 10 ORAL) 10 daily. [facility] pantoprazol Yes 40mg Take 40 mg [facility] e 40 mg EC 9- by mouth ity o f tablet 15:12: daily. [place] 10 [facility] aspirin Yes 81mg Take 81 mg [facility] ers (ASPIRIN 9-09 by mouth ity of LOW DOSE) 15:12: daily. [place] 81 mg EC 10 Medical tablet Branch POTASSIUM Yes 1{tbl} Take 1 [facility] ers CHLORIDE 9-09 tablet by ity of (KLOR-CON 15:12: mouth [place] 10 ORAL) 10 daily. [facility] pantoprazol Yes 40mg Take 40 mg [facility] e 40 mg EC 9-09 by mouth ity o f tablet 15:12: daily. [place] 10 [facility] aspirin Yes 81mg Take 81 mg [facility] ers (ASPIRIN 9-09 by mouth ity of LOW DOSE) 15:12: daily. [place] 81 mg EC 10 Medical tablet Branch atorvastati Yes [id number] 40mg Take 1 [facility] n (LIPITOR) 7-05 tablet by ity of 40 mg 00:00: mouth at [place] tablet 00 bedtime. [facility] DULoxetine Yes [id number] 30mg Take 1 [facility] nivers 30 mg 7-05 capsule by ity of capsule 00:00: mouth [place] 00 daily. [facility] clopidogrel Yes [id number] 75mg Take 1 [facility] (PLAVIX) 75 7-05 tablet by ity of mg tablet 00:00: mouth [place] 00 daily. [facility] furosemide 2018- Yes [id number] 20mg Take 1 [facility] (LASIX) 20 7-05 tablet by ity of mg tablet 00:00: mouth [place] 00 daily. [facility] isosorbide Yes [id number] 30mg Take 1 [facility] mononitrate 7-05 tablet by ity of 30 mg 24 hr 00:00: mouth [place] tablet 00 daily. [facility] metoprolol Yes [id number] 25mg Take 1 [facility] nivers tartrate 25 7-05 tablet by ity of mg tablet 00:00: mouth [place] 00 daily. [facility] fluconazole 2018- Yes [id number] 150mg Take 1 [facility] (DIFLUCAN) 7-05 tablet by ity of 150 mg 00:00: mouth [place] tablet 00 SEE-INSTRU Medical CTIONS. 1 Branch PO weekly/PRN yeast infection atorvastati Yes [id number] 40mg Take 1 [facility] n (LIPITOR) 7-05 tablet by ity of 40 mg 00:00: mouth at [place] tablet 00 bedtime. [facility] DULoxetine Yes [id number] 30mg Take 1 [facility] nivers 30 mg 7-05 capsule by ity of capsule 00:00: mouth [place] 00 daily. [facility] clopidogrel 2019- Yes [id number] 75mg Take 1 [facility] (PLAVIX) 75 7-05 tablet by ity of mg tablet 00:00: mouth [place] 00 daily. [facility] furosemide 2019- Yes [id number] 20mg Take 1 [facility] n[facility] (LASIX) 20 7-05 tablet by ity of mg tablet 00:00: mouth [place] 00 daily. [facility] isosorbide 2019- Yes [id number] 30mg Take 1 [facility] mononitrate 7-05 tablet by ity of 30 mg 24 hr 00:00: mouth [place] tablet 00 daily. [facility] metoprolol Yes [id number] 25mg Take 1 [facility] nivers tartrate 25 7-05 tablet by ity of mg tablet 00:00: mouth [place] 00 daily. [facility] fluconazole 2019- Yes [id number] 150mg Take 1 [facility] (DIFLUCAN) 7-05 tablet by ity of 150 mg 00:00: mouth [place] tablet 00 SEE-INSTRU Medical CTIONS. 1 Branch PO weekly/PRN yeast infection atorvastati 2018- Yes [id number] 40mg Take 1 [facility] n (LIPITOR) 7-05 tablet by ity of 40 mg 00:00: mouth at [place] tablet 00 bedtime. [facility] DULoxetine 2018- Yes [id number] 30mg Take 1 [facility] nivers 30 mg 7-05 capsule by ity of capsule 00:00: mouth [place] 00 daily. [facility] clopidogrel 2019- Yes [id number] 75mg Take 1 [facility] (PLAVIX) 75 7-05 tablet by ity of mg tablet 00:00: mouth [place] 00 daily. [facility] furosemide 2019- Yes [id number] 20mg Take 1 [facility] n[facility] (LASIX) 20 7-05 tablet by ity of mg tablet 00:00: mouth [place] 00 daily. [facility] isosorbide 2019- Yes [id number] 30mg Take 1 [facility] mononitrate 7-05 tablet by ity of 30 mg 24 hr 00:00: mouth [place] tablet 00 daily. [facility] metoprolol 2019- Yes [id number] 25mg Take 1 [facility] nivers tartrate 25 7-05 tablet by ity of mg tablet 00:00: mouth [place] 00 daily. [facility] fluconazole 2019-0 Yes [id number] 150mg Take 1 [facility] (DIFLUCAN) 7-05 tablet by ity of 150 mg 00:00: mouth [place] tablet 00 SEE-INSTRU Medical CTIONS. 1 Branch PO weekly/PRN yeast infection atorvastati 2018-0 Yes [id number] 40mg Take 1 [facility] n (LIPITOR) 7-05 tablet by ity of 40 mg 00:00: mouth at [place] tablet 00 bedtime. [facility] DULoxetine 2019-0 Yes [id number] 30mg Take 1 [facility] nivers 30 mg 7-05 capsule by ity of capsule 00:00: mouth [place] 00 daily. [facility] clopidogrel 2019- Yes [id number] 75mg Take 1 [facility] (PLAVIX) 75 7-05 tablet by ity of mg tablet 00:00: mouth [place] 00 daily. [facility] furosemide 2018-0 Yes [id number] 20mg Take 1 [facility] n[facility] (LASIX) 20 7-05 tablet by ity of mg tablet 00:00: mouth [place] 00 daily. [facility] isosorbide 2018-0 Yes [id number] 30mg Take 1 [facility] mononitrate 7-05 tablet by ity of 30 mg 24 hr 00:00: mouth [place] tablet 00 daily. [facility] metoprolol 2018-0 Yes [id number] 25mg Take 1 [facility] nivers tartrate 25 7-05 tablet by ity of mg tablet 00:00: mouth [place] 00 daily. [facility] fluconazole 2019-0 Yes [id number] 150mg Take 1 [facility] (DIFLUCAN) 7-05 tablet by ity of 150 mg 00:00: mouth [place] tablet 00 SEE-INSTRU Medical CTIONS. 1 Branch PO weekly/PRN yeast infection atorvastati 2018-0 Yes [id number] 40mg Take 1 [facility] n (LIPITOR) 7-05 tablet by ity of 40 mg 00:00: mouth at [place] tablet 00 bedtime. [facility] DULoxetine 2018-0 Yes [id number] 30mg Take 1 [facility] nivers 30 mg 7-05 capsule by ity of capsule 00:00: mouth [place] 00 daily. [facility] clopidogrel 2019-0 Yes [id number] 75mg Take 1 [facility] (PLAVIX) 75 7-05 tablet by ity of mg tablet 00:00: mouth [place] 00 daily. [facility] furosemide 2019-0 Yes [id number] 20mg Take 1 [facility] n[facility] (LASIX) 20 7-05 tablet by ity of mg tablet 00:00: mouth [place] 00 daily. [facility] isosorbide 2019 Yes [id number] 30mg Take 1 [facility] mononitrate 7-05 tablet by ity of 30 mg 24 hr 00:00: mouth [place] tablet 00 daily. [facility] metoprolol 2019 Yes [id number] 25mg Take 1 [facility] nivers tartrate 25 7-05 tablet by ity of mg tablet 00:00: mouth [place] 00 daily. [facility] fluconazole 2019- Yes [id number] 150mg Take 1 [facility] (DIFLUCAN) 7-05 tablet by ity of 150 mg 00:00: mouth [place] tablet 00 SEE-INSTRU Medical CTIONS. 1 Branch PO weekly/PRN yeast infection atorvastati Yes [id number] 40mg Take 1 [facility] n (LIPITOR) 7-05 tablet by ity of 40 mg 00:00: mouth at [place] tablet 00 bedtime. [facility] DULoxetine Yes [id number] 30mg Take 1 [facility] n[facility] 30 mg 7-05 capsule by ity of capsule 00:00: mouth [place] 00 daily. [facility] clopidogrel Yes [id number] 75mg Take 1 [facility] (PLAVIX) 75 7-05 tablet by ity of mg tablet 00:00: mouth [place] 00 daily. [facility] furosemide 2019- Yes [id number] 20mg Take 1 [facility] n[facility] (LASIX) 20 7-05 tablet by ity of mg tablet 00:00: mouth [place] 00 daily. [facility] isosorbide Yes [id number] 30mg Take 1 [facility] mononitrate 7-05 tablet by ity of 30 mg 24 hr 00:00: mouth [place] tablet 00 daily. [facility] metoprolol Yes [id number] 25mg Take 1 [facility] nivers tartrate 25 7-05 tablet by ity of mg tablet 00:00: mouth [place] 00 daily. [facility] fluconazole 2019- Yes [id number] 150mg Take 1 [facility] (DIFLUCAN) 7-05 tablet by ity of 150 mg 00:00: mouth [place] tablet 00 SEE-INSTRU Medical CTIONS. 1 Branch PO weekly/PRN yeast infection atorvastati Yes [id number] 40mg Take 1 [facility] n (LIPITOR) 7-05 tablet by ity of 40 mg 00:00: mouth at [place] tablet 00 bedtime. [facility] DULoxetine Yes [id number] 30mg Take 1 [facility] nivers 30 mg 7-05 capsule by ity of capsule 00:00: mouth [place] 00 daily. [facility] clopidogrel 2019- Yes [id number] 75mg Take 1 [facility] (PLAVIX) 75 7-05 tablet by ity of mg tablet 00:00: mouth [place] 00 daily. [facility] furosemide 2019- Yes [id number] 20mg Take 1 [facility] n[facility] (LASIX) 20 7-05 tablet by ity of mg tablet 00:00: mouth [place] 00 daily. [facility] isosorbide 2019- Yes [id number] 30mg Take 1 [facility] mononitrate 7-05 tablet by ity of 30 mg 24 hr 00:00: mouth [place] tablet 00 daily. [facility] metoprolol Yes [id number] 25mg Take 1 [facility] nivers tartrate 25 7-05 tablet by ity of mg tablet 00:00: mouth [place] 00 daily. [facility] fluconazole 2019- Yes [id number] 150mg Take 1 [facility] (DIFLUCAN) 7-05 tablet by ity of 150 mg 00:00: mouth [place] tablet 00 SEE-INSTRU Medical CTIONS. 1 Branch PO weekly/PRN yeast infection atorvastati 2018- Yes [id number] 40mg Take 1 [facility] n (LIPITOR) 7-05 tablet by ity of 40 mg 00:00: mouth at [place] tablet 00 bedtime. [facility] DULoxetine 2018- Yes [id number] 30mg Take 1 [facility] n[facility] 30 mg 7-05 capsule by ity of capsule 00:00: mouth [place] 00 daily. [facility] clopidogrel 2019- Yes [id number] 75mg Take 1 [facility] (PLAVIX) 75 7-05 tablet by ity of mg tablet 00:00: mouth [place] 00 daily. [facility] furosemide 2019- Yes [id number] 20mg Take 1 [facility] n[facility] (LASIX) 20 7-05 tablet by ity of mg tablet 00:00: mouth [place] 00 daily. [facility] isosorbide 2019- Yes [id number] 30mg Take 1 [facility] mononitrate 7-05 tablet by ity of 30 mg 24 hr 00:00: mouth [place] tablet 00 daily. [facility] metoprolol 2019- Yes [id number] 25mg Take 1 [facility] nivers tartrate 25 7-05 tablet by ity of mg tablet 00:00: mouth [place] 00 daily. [facility] fluconazole 2019-0 Yes [id number] 150mg Take 1 [facility] (DIFLUCAN) 7-05 tablet by ity of 150 mg 00:00: mouth [place] tablet 00 SEE-INSTRU Medical CTIONS. 1 Branch PO weekly/PRN yeast infection metoprolol Yes [id number] 25mg Take 1 [facility] nivers tartrate 25 7-05 tablet by ity of mg tablet 00:00: mouth [place] 00 daily. [facility] metoprolol Yes [id number] 25mg Take 1 [facility] nivers tartrate 25 7-05 tablet by ity of mg tablet 00:00: mouth [place] 00 daily. [facility] metoprolol Yes [id number] 25mg Take 1 [facility] nivers tartrate 25 7-05 tablet by ity of mg tablet 00:00: mouth [place] 00 daily. [facility] metoprolol Yes [id number] 25mg Take 1 [facility] nivers tartrate 25 7-05 tablet by ity of mg tablet 00:00: mouth [place] 00 daily. [facility] metoprolol Yes [id number] 25mg Take 1 [facility] nivers tartrate 25 7-05 tablet by ity of mg tablet 00:00: mouth [place] 00 daily. [facility] metoprolol Yes [id number] 25mg Take 1 [facility] nivers tartrate 25 7-05 tablet by ity of mg tablet 00:00: mouth [place] 00 daily. [facility] metoprolol Yes [id number] 25mg Take 1 [facility] nivers tartrate 25 7-05 tablet by ity of mg tablet 00:00: mouth [place] 00 daily. [facility] metoprolol 2020- No [id number] 25mg Take 1 [facility] tartrate 25 7-05 03-20 tablet by it y of mg tablet 00:00: 00:00 mouth [place] 00 :00 daily. [facility] isosorbide 2020- No [id number] 30mg Take 1 [facility] mononitrate 7-05 03-09 tablet by it y of 30 mg 24 hr 00:00: 00:00 [place] tablet 00 :00 daily. [facility] isosorbide 2020- No [id number] 30mg Take 1 [facility] mononitrate 7-05 03-09 tablet by it y of 30 mg 24 hr 00:00: 00:00 [place] tablet 00 :00 daily. [facility] isosorbide 2020- No [id number] 30mg Take 1 [facility] mononitrate 7-05 03-09 tablet by it y of 30 mg 24 hr 00:00: 00:00 [place] tablet 00 :00 daily. [facility] POTASSIUM Yes 1{tbl} Take 1 [facility] ers CHLORIDE 6-19 tablet by ity of (KLOR-CON 18:18: mouth [place] 10 ORAL) 24 daily. [facility] pantoprazol Yes 40mg Take 40 mg [facility] e 40 mg EC 6-19 by mouth ity o f tablet 18:18: daily. [facility] aspirin Yes 81mg Take 81 mg [facility] ers (ASPIRIN 6-19 by mouth ity of LOW DOSE) 18:18: daily. [place] 81 mg EC 24 Medical tablet Branch POTASSIUM Yes 1{tbl} Take 1 [facility] ers CHLORIDE 6-19 tablet by ity of (KLOR-CON 18:18: mouth [place] 10 ORAL) 24 daily. [facility] pantoprazol Yes 40mg Take 40 mg [facility] e 40 mg EC 6-19 by mouth ity o f tablet 18:18: daily. [facility] aspirin Yes 81mg Take 81 mg [facility] ers (ASPIRIN 6-19 by mouth ity of LOW DOSE) 18:18: daily. [place] 81 mg EC 24 Medical tablet Branch POTASSIUM Yes 1{tbl} Take 1 [facility] ers CHLORIDE 6-19 tablet by ity of (KLOR-CON 18:18: mouth [place] 10 ORAL) 24 daily. [facility] pantoprazol Yes 40mg Take 40 mg [facility] e 40 mg EC 6-19 by mouth ity o f tablet 18:18: daily. [facility] aspirin Yes 81mg Take 81 mg [facility] ers (ASPIRIN 6-19 by mouth ity of LOW DOSE) 18:18: daily. [place] 81 mg EC 24 Medical tablet Branch POTASSIUM Yes 1{tbl} Take 1 [facility] ers CHLORIDE 6-19 tablet by ity of (KLOR-CON 18:18: mouth [place] 10 ORAL) 24 daily. [facility] pantoprazol Yes 40mg Take 40 mg [facility] e 40 mg EC 6-19 by mouth ity o f tablet 18:18: daily. [facility] aspirin Yes 81mg Take 81 mg [facility] ers (ASPIRIN 6-19 by mouth ity of LOW DOSE) 18:18: daily. [place] 81 mg EC 24 Medical tablet Branch POTASSIUM Yes 1{tbl} Take 1 [facility] ers CHLORIDE 6-19 tablet by ity of (KLOR-CON 18:18: mouth [place] 10 ORAL) 24 daily. [facility] pantoprazol Yes 40mg Take 40 mg [facility] e 40 mg EC 6-19 by mouth ity o f tablet 18:18: daily. [place] 24 [facility] aspirin Yes 81mg Take 81 mg [facility] ers (ASPIRIN 6-19 by mouth ity of LOW DOSE) 18:18: daily. [place] 81 mg EC 24 Medical tablet Branch POTASSIUM Yes 1{tbl} Take 1 [facility] ers CHLORIDE 6-19 tablet by ity of (KLOR-CON 18:18: mouth [place] 10 ORAL) 24 daily. [facility] pantoprazol Yes 40mg Take 40 mg [facility] e 40 mg EC 6-19 by mouth ity o f tablet 18:18: daily. [place] 24 Medical [facility] aspirin Yes 81mg Take 81 mg [facility] ers (ASPIRIN 6-19 by mouth ity of LOW DOSE) 18:18: daily. [place] 81 mg EC 24 Medical tablet Branch phenazopyri Yes [id number] 200mg Take 1 [facility] dine 200 mg 6-02 tablet by ity of tablet 00:00: mouth 3 [place] (three) Medical times Branch daily. phenazopyri Yes [id number] 200mg Take 1 [facility] dine 200 mg 6-02 tablet by ity of tablet 00:00: mouth 3 [place] (three) Medical times Branch daily. phenazopyri Yes [id number] 200mg Take 1 [facility] dine 200 mg 6-02 tablet by ity of tablet 00:00: mouth 3 [place] 00 (three) Medical times Branch daily. phenazopyri Yes [id number] 200mg Take 1 [facility] dine 200 mg 6-02 tablet by ity of tablet 00:00: mouth 3 [place] 00 (three) Medical times Branch daily. phenazopyri 2018- Yes [id number] 200mg Take 1 [facility] dine 200 mg 6-02 tablet by ity of tablet 00:00: mouth 3 [place] (three) Medical times Branch daily. phenazopyri 2018- Yes [id number] 200mg Take 1 [facility] dine 200 mg 6-02 tablet by ity of tablet 00:00: mouth 3 (three) Medical times Branch daily. phenazopyri 2019-0 Yes [id number] 200mg Take 1 [facility] dine 200 mg 6-02 tablet by ity of tablet 00:00: mouth 3 (three) Medical times Branch daily. phenazopyri 2019-0 Yes [id number] 200mg Take 1 [facility] dine 200 mg 6-02 tablet by ity of tablet 00:00: mouth (three) Medical times Branch daily. phenazopyri 2018-0 Yes [id number] 200mg Take 1 [facility] dine 200 mg 6-02 tablet by ity of tablet 00:00: mouth (three) Medical times Branch daily. phenazopyri 2018-0 Yes [id number] 200mg Take 1 [facility] dine 200 mg 6-02 tablet by ity of tablet 00:00: mouth (three) Medical times Branch daily. phenazopyri 2018-0 Yes [id number] 200mg Take 1 [facility] dine 200 mg 6-02 tablet by ity of tablet 00:00: mouth (three) Medical times Branch daily. phenazopyri 2018-0 Yes [id number] 200mg Take 1 [facility] dine 200 mg 6-02 tablet by ity of tablet 00:00: mouth (three) Medical times Branch daily. phenazopyri 2018-0 Yes [id number] 200mg Take 1 [facility] dine 200 mg 6-02 tablet by ity of tablet 00:00: mouth (three) Medical times Branch daily. phenazopyri 2018-0 Yes [id number] 200mg Take 1 [facility] dine 200 mg 6-02 tablet by ity of tablet 00:00: mouth (three) Medical times Branch daily. phenazopyri 2019-0 Yes [id number] 200mg Take 1 [facility] dine 200 mg 6-02 tablet by ity of tablet 00:00: mouth 3 (three) Medical times Branch daily. phenazopyri 2019-0 Yes [id number] 200mg Take 1 [facility] dine 200 mg 6-02 tablet by ity of tablet 00:00: mouth 3 (three) Medical times Branch daily. phenazopyri 2019-0 Yes [id number] 200mg Take 1 [facility] dine 200 mg 6-02 tablet by ity of tablet 00:00: mouth 3 (three) Medical times Branch daily. phenazopyri 2019-0 Yes [id number] 200mg Take 1 [facility] dine 200 mg 6-02 tablet by ity of tablet 00:00: mouth 3 [place] (three) Medical times Branch daily. phenazopyri 2018-0 Yes [id number] 200mg Take 1 [facility] dine 200 mg 6-02 tablet by ity of tablet 00:00: mouth 3 [place] (three) Medical times Branch daily. phenazopyri 2018-0 Yes [id number] 200mg Take 1 [facility] dine 200 mg 6-02 tablet by ity of tablet 00:00: mouth 3 (three) Medical times Branch daily. phenazopyri 2018-0 Yes [id number] 200mg Take 1 [facility] dine 200 mg 6-02 tablet by ity of tablet 00:00: mouth 3 (three) Medical times Branch daily. phenazopyri 2018-0 Yes [id number] 200mg Take 1 [facility] dine 200 mg 6-02 tablet by ity of tablet 00:00: mouth [place] (three) Medical times Branch daily. phenazopyri 2018-0 Yes [id number] 200mg Take 1 [facility] dine 200 mg 6-02 tablet by ity of tablet 00:00: mouth [place] (three) Medical times Branch daily. phenazopyri 2018-0 Yes [id number] 200mg Take 1 [facility] dine 200 mg 6-02 tablet by ity of tablet 00:00: mouth 3 [place] (three) Medical times Branch daily. phenazopyri 2018-0 Yes [id number] 200mg Take 1 [facility] dine 200 mg 6-02 tablet by ity of tablet 00:00: mouth 3 [place] (three) Medical times Branch daily. phenazopyri 2018-0 Yes [id number] 200mg Take 1 [facility] dine 200 mg 6-02 tablet by ity of tablet 00:00: mouth 3 [place] (three) Medical times Branch daily. phenazopyri 2019-0 Yes [id number] 200mg Take 1 [facility] dine 200 mg 6-02 tablet by ity of tablet 00:00: mouth 3 [place] (three) Medical times Branch daily. phenazopyri 2018-0 Yes [id number] 200mg Take 1 [facility] dine 200 mg 6-02 tablet by ity of tablet 00:00: mouth 3 00 (three) Medical times Branch daily. phenazopyri 2019-0 Yes [id number] 200mg Take 1 [facility] dine 200 mg 6-02 tablet by ity of tablet 00:00: mouth 3 [place] 00 (three) Medical times Branch daily. phenazopyri 2019-0 Yes [id number] 200mg Take 1 [facility] dine 200 mg 6-02 tablet by ity of tablet 00:00: mouth 3 [place] 00 (three) Medical times Branch daily. phenazopyri 2019-0 Yes [id number] 200mg Take 1 [facility] dine 200 mg 6-02 tablet by ity of tablet 00:00: mouth 3 [place] 00 (three) Medical times Branch daily. phenazopyri 2019-0 Yes [id number] 200mg Take 1 [facility] dine 200 mg 6-02 tablet by ity of tablet 00:00: mouth 3 [place] 00 (three) Medical times Branch daily. phenazopyri 2019-0 Yes [id number] 200mg Take 1 [facility] dine 200 mg 6-02 tablet by ity of tablet 00:00: mouth 3 [place] (three) Medical times Branch daily. phenazopyri 2019-0 Yes [id number] 200mg Take 1 [facility] dine 200 mg 6-02 tablet by ity of tablet 00:00: mouth 3 [place] (three) Medical times Branch daily. phenazopyri 2018-0 2020- No [id number] 200mg Take 1 [facility] dine 200 mg 6-02 08-14 tablet by it y of tablet 00:00: 00:00 mouth 3 [place] 00 :00 (three) Medical times Branch daily. phenazopyri 2018-0 2020- No [id number] 200mg Take 1 [facility] dine 200 mg 6-02 08-14 tablet by it y of tablet 00:00: 00:00 mouth 3 [place] 00 :00 (three) Medical times Branch daily. miSOPROStol 2018-0 Yes [id number] Take one [facility] 200 mcg 5-10 tablet the ity of tablet 00:00: night [place] 00 before Medical procedure, Branch take one table the morning of procedure. miSOPROStol 2019-0 Yes [id number] Take one [facility] 200 mcg 5-10 tablet the ity of tablet 00:00: night 00 before Medical procedure, Branch take one table the morning of procedure. miSOPROStol 2018-0 Yes [id number] Take one [facility] 200 mcg 5-10 tablet the ity of tablet 00:00: night [place] 00 before Medical procedure, Branch take one table the morning of procedure. miSOPROStol 2018- Yes [id number] Take one [facility] 200 mcg 5-10 tablet the ity of tablet 00:00: night [place] 00 before Medical procedure, Branch take one table the morning of procedure. miSOPROStol 2018- Yes [id number] Take one [facility] 200 mcg 5-10 tablet the ity of tablet 00:00: night [place] 00 before Medical procedure, Branch take one table the morning of procedure. miSOPROStol 2018- Yes [id number] Take one [facility] 200 mcg 5-10 tablet the ity of tablet 00:00: night [place] 00 before Medical procedure, Branch take one table the morning of procedure. miSOPROStol 2018- 2019- No [id number] Take one [facility] 200 mcg 5-10 09-09 tablet the ity o f tablet 00:00: 00:00 night [place] 00 :00 before Medical procedure, Branch take one table the morning of procedure. miSOPROStol 2019- No [id number] Take one [facility] 200 mcg 5-10 09-09 tablet the ity o f tablet 00:00: 00:00 night [place] 00 :00 before Medical procedure, Branch take one table the morning of procedure. escitalopra Yes [id number] 10mg Take 1 [facility] m oxalate 4-30 tablet by ity o f (LEXAPRO) 00:00: mouth [place] 10 mg 00 daily. Medical tablet [place] escitalopra Yes [id number] 10mg Take 1 [facility] m oxalate 4-30 tablet by ity o f (LEXAPRO) 00:00: mouth [place] 10 mg 00 daily. Medical tablet Branch escitalopra Yes [id number] 10mg Take 1 [facility] m oxalate 4-30 tablet by ity o f (LEXAPRO) 00:00: mouth [place] 10 mg 00 daily. Medical tablet Branch escitalopra Yes [id number] 10mg Take 1 [facility] m oxalate 4-30 tablet by ity o f (LEXAPRO) 00:00: mouth [place] 10 mg 00 daily. Medical tablet Branch escitalopra Yes [id number] 10mg Take 1 [facility] m oxalate 4-30 tablet by ity o f (LEXAPRO) 00:00: mouth [place] 10 mg 00 daily. Medical tablet Branch escitalopra 2019- Yes [id number] 10mg Take 1 [facility] m oxalate 4-30 tablet by ity o f (LEXAPRO) 00:00: mouth [place] 10 mg 00 daily. Medical tablet Branch escitalopra 2018- 2019- No [id number] 10mg Take 1 [facility] m oxalate 4-30 09-09 tablet by ity of (LEXAPRO) 00:00: 00:00 mouth [place] 10 mg 00 :00 daily. Medical tablet Branch escitalopra 2018- 2019- No [id number] 10mg Take 1 [facility] m oxalate 4-30 -09 tablet by ity of (LEXAPRO) 00:00: 00:00 mouth [place] 10 mg 00 :00 daily. Medical tablet Branch Nitrofurant 2018-0 Yes [id number] 100mg Take 1 [facility] oin&Nit. 4-25 capsule by ity o f Macrocryst 00:00: mouth [place] (MACROBID) 00 daily. Medical 100 mg Branch capsule Nitrofurant 2019-0 Yes [id number] 100mg Take 1 [facility] oin&Nit. 4-25 capsule by ity o f Macrocryst 00:00: mouth [place] (MACROBID) 00 daily. Medical 100 mg Branch capsule Nitrofurant 2018-0 Yes [id number] 100mg Take 1 [facility] oin&Nit. 4-25 capsule by ity o f Macrocryst 00:00: mouth [place] (MACROBID) 00 daily. Medical 100 mg Branch capsule Nitrofurant 2019-0 Yes [id number] 100mg Take 1 [facility] oin&Nit. 4-25 capsule by ity o f Macrocryst 00:00: mouth [place] (MACROBID) 00 daily. Medical 100 mg Branch capsule Nitrofurant 2019-0 Yes 100mg Take 1 [facility] oin&Nit. 4-25 capsule by ity o f Macrocryst 00:00: mouth [place] (MACROBID) 00 daily. Medical 100 mg Branch capsule Nitrofurant 2019-0 Yes [id number] 100mg Take 1 [facility] oin&Nit. 4-25 capsule by ity o f Macrocryst 00:00: mouth [place] (MACROBID) 00 daily. Medical 100 mg Branch capsule Nitrofurant 2019-0 Yes [id number] 100mg Take 1 [facility] oin&Nit. 4-25 capsule by ity o f Macrocryst 00:00: mouth [place] (MACROBID) 00 daily. Medical 100 mg Branch capsule Nitrofurant 2019-0 Yes 100mg Take 1 [facility] oin&Nit. 4-25 capsule by ity o f Macrocryst 00:00: mouth [place] (MACROBID) 00 daily. Medical 100 mg Branch capsule Nitrofurant 2019-0 Yes 100mg Take 1 [facility] oin&Nit. 4-25 capsule by ity o f Macrocryst 00:00: mouth [place] (MACROBID) 00 daily. Medical 100 mg Branch capsule Nitrofurant 2019-0 Yes 100mg Take 1 [facility] oin&Nit. 4-25 capsule by ity o f Macrocryst 00:00: mouth [place] (MACROBID) 00 daily. Medical 100 mg Branch capsule Nitrofurant 2019-0 Yes 100mg Take 1 [facility] oin&Nit. 4-25 capsule by ity o f Macrocryst 00:00: mouth [place] (MACROBID) 00 daily. Medical 100 mg Branch capsule Nitrofurant 2019-0 Yes 100mg Take 1 [facility] oin&Nit. 4-25 capsule by ity o f Macrocryst 00:00: mouth [place] (MACROBID) 00 daily. Medical 100 mg Branch capsule Nitrofurant 2019-0 Yes 100mg Take 1 [facility] oin&Nit. 4-25 capsule by ity o f Macrocryst 00:00: mouth [place] (MACROBID) 00 daily. Medical 100 mg Branch capsule Nitrofurant 2019-0 Yes 100mg Take 1 [facility] oin&Nit. 4-25 capsule by ity o f Macrocryst 00:00: mouth [place] (MACROBID) 00 daily. Medical 100 mg Branch capsule Nitrofurant 2019-0 Yes 100mg Take 1 [facility] oin&Nit. 4-25 capsule by ity o f Macrocryst 00:00: mouth [place] (MACROBID) 00 daily. Medical 100 mg Branch capsule Nitrofurant 2019-0 Yes 100mg Take 1 [facility] oin&Nit. 4-25 capsule by ity o f [facility] 00:00: mouth [place] (MACROBID) 00 daily. Medical 100 mg Branch capsule Nitrofurant 2019-0 Yes 100mg Take 1 [facility] oin&Nit. 4-25 capsule by ity o f [facility] 00:00: mouth [place] (MACROBID) 00 daily. Medical 100 mg Branch capsule Nitrofurant 2019-0 Yes 100mg Take 1 [facility] oin&Nit. 4-25 capsule by ity o f [facility] 00:00: mouth [place] (MACROBID) 00 daily. Medical 100 mg Branch capsule Nitrofurant 2019-0 Yes 100mg Take 1 [facility] oin&Nit. 4-25 capsule by ity o f [facility] 00:00: mouth [place] (MACROBID) 00 daily. Medical 100 mg Branch capsule Nitrofurant 2019-0 Yes 100mg Take 1 [facility] oin&Nit. 4-25 capsule by ity o f [facility] 00:00: mouth [place] (MACROBID) 00 daily. Medical 100 mg Branch capsule Nitrofurant 2019-0 Yes 100mg Take 1 [facility] oin&Nit. 4-25 capsule by ity o f [facility] 00:00: mouth [place] (MACROBID) 00 daily. Medical 100 mg Branch capsule Nitrofurant 2019-0 Yes 100mg Take 1 [facility] oin&Nit. 4-25 capsule by ity o f [facility] 00:00: mouth [place] (MACROBID) 00 daily. Medical 100 mg Branch capsule Nitrofurant 2019-0 Yes 100mg Take 1 [facility] oin&Nit. 4-25 capsule by ity o f [facility] 00:00: mouth [place] (MACROBID) 00 daily. Medical 100 mg Branch capsule Nitrofurant 2019-0 Yes 100mg Take 1 [facility] oin&Nit. 4-25 capsule by ity o f [facility] 00:00: mouth [place] (MACROBID) 00 daily. Medical 100 mg Branch capsule Nitrofurant 2019-0 Yes 100mg Take 1 [facility] oin&Nit. 4-25 capsule by ity o f [facility] 00:00: mouth [place] (MACROBID) 00 daily. Medical 100 mg Branch capsule Nitrofurant 2019-0 Yes 100mg Take 1 [facility] oin&Nit. 4-25 capsule by ity o f [facility] 00:00: mouth [place] (MACROBID) 00 daily. Medical 100 mg Branch capsule Nitrofurant 2019-0 Yes [id number] 100mg Take 1 [facility] oin&Nit. 4-25 capsule by ity o f [facility] 00:00: mouth [place] (MACROBID) 00 daily. Medical 100 mg Branch capsule Nitrofurant 2019-0 Yes 100mg Take 1 [facility] oin&Nit. 4-25 capsule by ity o f [facility] 00:00: mouth [place] (MACROBID) 00 daily. Medical 100 mg Branch capsule Nitrofurant 2019-0 Yes 100mg Take 1 [facility] oin&Nit. 4-25 capsule by ity o f [facility] 00:00: mouth [place] (MACROBID) 00 daily. Medical 100 mg Branch capsule Nitrofurant 2019-0 Yes 100mg Take 1 [facility] oin&Nit. 4-25 capsule by ity o f [facility] 00:00: mouth [place] (MACROBID) 00 daily. Medical 100 mg Branch capsule Nitrofurant 2019-0 Yes 100mg Take 1 [facility] oin&Nit. 4-25 capsule by ity o f [facility] 00:00: mouth [place] (MACROBID) 00 daily. Medical 100 mg Branch capsule Nitrofurant 2019-0 Yes 100mg Take 1 [facility] oin&Nit. 4-25 capsule by ity o f [facility] 00:00: mouth [place] (MACROBID) 00 daily. Medical 100 mg Branch capsule Nitrofurant 2019-0 Yes 100mg Take 1 [facility] oin&Nit. 4-25 capsule by ity o f [facility] 00:00: mouth [place] (MACROBID) 00 daily. Medical 100 mg Branch capsule Nitrofurant 2019-0 Yes 100mg Take 1 [facility] oin&Nit. 4-25 capsule by ity o f [facility] 00:00: mouth [place] (MACROBID) 00 daily. Medical 100 mg Branch capsule Nitrofurant 2019-0 2020- No [id number] 100mg Take 1 [facility] oin&Nit. 4-25 08-14 capsule by ity of [facility]roc[facility] 00:00: 00:00 mouth [place] (MACROBID) 00 :00 daily. Medical 100 mg Branch capsule Nitrofurant 2019-0 2020- No [id number] 100mg Take 1 [facility] oin&Nit. 4-25 08-14 capsule by ity of [facility] 00:00: 00:00 mouth [place] (MACROBID) 00 :00 daily. Medical 100 mg Branch capsule levoFLOXaci 2019-0 Yes Univer s n 500 mg 4-23 ity of tablet 00:00: [place] 00 Medical Branch sulfamethox 2019-0 Yes Univer s azole-trime 4-23 ity of thoprim 00:00: [place] 800-160 mg 00 Medical per tablet Branch levoFLOXaci 2019-0 Yes Univer s n 500 mg 4-23 ity of tablet 00:00: [place] 00 Medical Branch sulfamethox 2019-0 Yes Univer s azole-trime 4-23 ity of thoprim 00:00: [place] 800-160 mg 00 Medical per tablet Branch levoFLOXaci 2019-0 Yes Univer s n 500 mg 4-23 ity of tablet 00:00: [place] 00 Medical Branch sulfamethox 2019-0 Yes Univer s azole-trime 4-23 ity of thoprim 00:00: [place] 800-160 mg 00 Medical per tablet Branch levoFLOXaci 2019-0 Yes Univer s n 500 mg 4-23 ity of tablet 00:00: [place] 00 Medical Branch sulfamethox 2019-0 Yes Univer s azole-trime 4-23 ity of thoprim 00:00: [place] 800-160 mg 00 Medical per tablet Branch levoFLOXaci 2019-0 Yes Univer s n 500 mg 4-23 ity of tablet 00:00: [place] 00 Medical Branch sulfamethox 2019-0 Yes Univer s azole-trime 4-23 ity of thoprim 00:00: [place] 800-160 mg 00 Medical per tablet Branch levoFLOXaci 2019-0 Yes Univer s n 500 mg 4-23 ity of tablet 00:00: [place] 00 Medical Branch sulfamethox 2019-0 Yes Univer s azole-trime 4-23 ity of thoprim 00:00: [place] 800-160 mg 00 Medical per tablet Branch sulfamethox 2019-0 Yes Univer s azole-trime 4-23 ity of thoprim 00:00: [place] 800-160 mg 00 Medical per tablet Branch sulfamethox 2019-0 Yes Univer s azole-trime 4-23 ity of thoprim 00:00: [place] 800-160 mg 00 Medical per tablet Branch levoFLOXaci 2019-0 2019- No Unive rs n 500 mg 4-23 02-04 ity of tablet 00:00: 00:00 [place] 00 :00 Medical Branch levoFLOXaci 2019-0 2019- No Unive rs n 500 mg 09-18 ity of tablet 00:00: 00:00 [place] 00 :00 Medical Branch levETIRAcet 2019-0 Yes Univer s am 500 mg -06 ity of tablet 00:00: [place] 00 Medical Branch levETIRAcet 2019-0 Yes Univer s am 500 mg 4-06 ity of tablet 00:00: [place] 00 Medical Branch levETIRAcet 2019-0 Yes Univer s am 500 mg 4-06 ity of tablet 00:00: [place] 00 Medical Branch levETIRAcet 2019-0 Yes Univer s am 500 mg 4-06 ity of tablet 00:00: [place] 00 Medical Branch levETIRAcet 2019-0 Yes Univer s am 500 mg 4-06 ity of tablet 00:00: [place] 00 Medical Branch levETIRAcet 2019-0 Yes Univer s am 500 mg 4-06 ity of tablet 00:00: [place] 00 Medical Branch levETIRAcet 2019-0 Yes Univer s am 500 mg 4-06 ity of tablet 00:00: [place] 00 Medical Branch levETIRAcet 2019-0 Yes Univer s am 500 mg 4-06 ity of tablet 00:00: [place] 00 Medical Branch levETIRAcet 2019-0 Yes Univer s am 500 mg 4-06 ity of tablet 00:00: [place] 00 Medical Branch levETIRAcet 2019-0 Yes Univer s am 500 mg 4-06 ity of tablet 00:00: [place] 00 Medical Branch levETIRAcet 2019-0 Yes Univer s am 500 mg 4-06 ity of tablet 00:00: [place] 00 Medical Branch levETIRAcet 2019-0 Yes Univer s am 500 mg 4-06 ity of tablet 00:00: [place] 00 Medical Branch levETIRAcet 2019-0 Yes Univer s am 500 mg 4-06 ity of tablet 00:00: [place] 00 Medical Branch levETIRAcet 2019-0 Yes Univer s am 500 mg 4-06 ity of tablet 00:00: [place] 00 Medical Branch levETIRAcet 2019-0 Yes Univer s am 500 mg 4-06 ity of tablet 00:00: [place] 00 Medical Branch levETIRAcet 2019-0 Yes Univer s am 500 mg 4-06 ity of tablet 00:00: [place] 00 Medical Branch escitalopra 2019-0 Yes Univer s m oxalate 4-06 ity of 20 mg 00:00: [place] tablet 00 Medical Branch levETIRAcet 2019-0 Yes Univer s am 500 mg 4-06 ity of tablet 00:00: [place] 00 Medical Branch escitalopra 2019-0 Yes Univer s m oxalate 4-06 ity of 20 mg 00:00: [place] tablet 00 Medical Branch levETIRAcet 2019-0 Yes Univer s am 500 mg 4-06 ity of tablet 00:00: [place] 00 Medical Branch escitalopra 2019-0 Yes Univer s m oxalate 4-06 ity of 20 mg 00:00: [place] tablet 00 Medical Branch levETIRAcet 2019-0 Yes Univer s am 500 mg 4-06 ity of tablet 00:00: [place] 00 Medical Branch escitalopra 2019-0 Yes Univer s m oxalate 4-06 ity of 20 mg 00:00: [place] tablet 00 Medical Branch levETIRAcet 2019-0 Yes Univer s am 500 mg 4-06 ity of tablet 00:00: [place] 00 Medical Branch escitalopra 2019-0 Yes Univer s m oxalate 4-06 ity of 20 mg 00:00: [place] tablet 00 Medical Branch levETIRAcet 2019-0 Yes Univer s am 500 mg 4-06 ity of tablet 00:00: [place] 00 Medical Branch escitalopra 2019-0 Yes Univer s m oxalate 4-06 ity of 20 mg 00:00: [place] tablet 00 Medical Branch levETIRAcet 2019-0 Yes Univer s am 500 mg 4-06 ity of tablet 00:00: [place] 00 Medical Branch escitalopra 2019-0 Yes Univer s m oxalate 4-06 ity of 20 mg 00:00: [place] tablet 00 Medical Branch levETIRAcet 2019-0 Yes Univer s am 500 mg 4-06 ity of tablet 00:00: [place] 00 Medical Branch escitalopra 2019-0 Yes Univer s m oxalate 4-06 ity of 20 mg 00:00: [place] tablet 00 Medical Branch levETIRAcet 2019-0 Yes Univer s am 500 mg 4-06 ity of tablet 00:00: [place] 00 Medical Branch levETIRAcet 2019-0 Yes Univer s am 500 mg 4-06 ity of tablet 00:00: [place] 00 Medical Branch levETIRAcet 2019-0 Yes Univer s am 500 mg 4-06 ity of tablet 00:00: [place] 00 Medical Branch levETIRAcet 2019-0 Yes Univer s am 500 mg 4-06 ity of tablet 00:00: [place] 00 Medical Branch levETIRAcet 2019-0 Yes Univer s am 500 mg 4-06 ity of tablet 00:00: [place] 00 [facility] levETIRAcet 2019-0 Yes Univer s am 500 mg 4-06 ity of tablet 00:00: [place] [facility] levETIRAcet 2019-0 Yes Univer s am 500 mg 4-06 ity of tablet 00:00: [place] 00 [facility] Branch levETIRAcet 2019-0 Yes Univer s am 500 mg 4-06 ity of tablet 00:00: [place] 00 [facility] Branch levETIRAcet 2019-0 Yes Univer s am 500 mg 4-06 ity of tablet 00:00: [place] 00 [facility] levETIRAcet 2019-0 Yes Univer s am 500 mg 4-06 ity of tablet 00:00: [place] 00 [facility] levETIRAcet 2019-0 Yes Univer s am 500 mg 4-06 ity of tablet 00:00: [place] 00 [facility] Branch levETIRAcet 2019-0 2020- No Unive rs am 500 mg 4-11 03-14 ity of tablet 00:00: 00:00 [place] 00 :00 Medical Branch levETIRAcet 2019-0 2020- No Unive rs am 500 mg 4-06 08-14 ity of tablet 00:00: 00:00 [place] 00 :00 Medical Branch gabapentin 2019-0 Yes [id number] 800mg Take 1 [facility] 800 mg 4-05 tablet by ity of tablet 00:00: mouth 3 (three) Medical times Branch daily. metFORMIN 2019-0 Yes 1000mg Take 2 Univ ers 500 mg 4-05 tablets by ity of tablet 00:00: mouth 2 (two) Medical times [place] daily with meals. You can do two pills in the morning and one in the evening. gabapentin 2019-0 Yes [id number] 800mg Take 1 [facility] 800 mg 4-05 tablet by ity of tablet 00:00: mouth 3 (three) Medical times Branch daily. metFORMIN 2019-0 Yes 1000mg Take 2 Univ ers 500 mg 4-05 tablets by ity of tablet 00:00: mouth (two) Medical times Branch daily with meals. You can do two pills in the morning and one in the evening. gabapentin 2019-0 Yes [id number] 800mg Take 1 [facility] 800 mg 4-05 tablet by ity of tablet 00:00: mouth 3 (three) Medical times Branch daily. metFORMIN 2019-0 Yes 1000mg Take 2 Univ ers 500 mg 4-05 tablets by ity of tablet 00:00: mouth (two) Medical times Branch daily with meals. You can do two pills in the morning and one in the evening. gabapentin 2019-0 Yes [id number] 800mg Take 1 [facility] 800 mg 4-05 tablet by ity of tablet 00:00: mouth (three) Medical times Branch daily. metFORMIN 2019-0 Yes 1000mg Take 2 Univ ers 500 mg 4-05 tablets by ity of tablet 00:00: mouth (two) Medical times Branch daily with meals. You can do two pills in the morning and one in the evening. metFORMIN 2019-0 Yes 1000mg Take 2 Univ ers 500 mg 4-05 tablets by ity of tablet 00:00: mouth (two) Medical times Branch daily with meals. You can do two pills in the morning and one in the evening. metFORMIN 2019-0 Yes 1000mg Take 2 Univ ers 500 mg 4-05 tablets by ity of tablet 00:00: mouth (two) Medical times Branch daily with meals. You can do two pills in the morning and one in the evening. metFORMIN 2019-0 Yes 1000mg Take 2 Univ ers 500 mg 4-05 tablets by ity of tablet 00:00: mouth (two) Medical times Branch daily with meals. You can do two pills in the morning and one in the evening. metFORMIN 2019-0 Yes 1000mg Take 2 Univ ers 500 mg 4-05 tablets by ity of tablet 00:00: mouth (two) Medical times Branch daily with meals. You can do two pills in the morning and one in the evening. metFORMIN 2019-0 Yes 1000mg Take 2 Univ ers 500 mg 4-05 tablets by ity of tablet 00:00: mouth (two) Medical times Branch daily with meals. You can do two pills in the morning and one in the evening. metFORMIN 2019-0 Yes 1000mg Take 2 Univ ers 500 mg 4-05 tablets by ity of tablet 00:00: mouth (two) Medical times Branch daily with meals. You can do two pills in the morning and one in the evening. metFORMIN 2019-0 Yes 1000mg Take 2 Univ ers 500 mg 4-05 tablets by ity of tablet 00:00: mouth (two) Medical times Branch daily with meals. You can do two pills in the morning and one in the evening. metFORMIN 2019-0 Yes 1000mg Take 2 Univ ers 500 mg 4-05 tablets by ity of tablet 00:00: mouth (two) Medical times Branch daily with meals. You can do two pills in the morning and one in the evening. metFORMIN 2019-0 Yes 1000mg Take 2 Univ ers 500 mg 4-05 tablets by ity of tablet 00:00: mouth (two) Medical times Branch daily with meals. You can do two pills in the morning and one in the evening. gabapentin 2019-0 Yes [id number] 800mg Take 1 [facility] 800 mg 4-05 tablet by ity of tablet 00:00: mouth (three) Medical times Branch daily. metFORMIN 2019-0 Yes 1000mg Take 2 Univ ers 500 mg 4-05 tablets by ity of tablet 00:00: mouth (two) Medical times Branch daily with meals. You can do two pills in the morning and one in the evening. insulin NPH 2019-0 Yes 80U inject 80 U nivers and regular 4-05 Units ity of human 70-30 00:00: under the [place] (NOVOLIN 00 skin 2 Medical 70/30 U-100 (two) Branch INSULIN) times 100 unit/mL daily (70-30) before injection breakfast and dinner. gabapentin 2019-0 Yes [id number] 800mg Take 1 [facility] 800 mg 4-05 tablet by ity of tablet 00:00: mouth 3 (three) Medical times Branch daily. metFORMIN 2019-0 Yes 1000mg Take 2 Univ ers 500 mg 4-05 tablets by ity of tablet 00:00: mouth (two) Medical times Branch daily with meals. You can do two pills in the morning and one in the evening. insulin NPH 2019-0 Yes 80U inject 80 U nivers and regular 4-05 Units ity of human 70-30 00:00: under the [place] (NOVOLIN 00 skin 2 Medical 70/30 U-100 (two) Branch INSULIN) times 100 unit/mL daily (70-30) before injection breakfast and dinner. gabapentin 2019-0 Yes [id number] 800mg Take 1 [facility] 800 mg 4-05 tablet by ity of tablet 00:00: mouth 3 (three) Medical times Branch daily. metFORMIN 2019-0 Yes 1000mg Take 2 Univ ers 500 mg 4-05 tablets by ity of tablet 00:00: mouth (two) Medical times Branch daily with meals. You can do two pills in the morning and one in the evening. insulin NPH 2019-0 Yes 80U inject 80 U nivers and regular 4-05 Units ity of human 70-30 00:00: under the [place] (NOVOLIN 00 skin 2 Medical 70/30 U-100 (two) Branch INSULIN) times 100 unit/mL daily (70-30) before injection breakfast and dinner. gabapentin 2019-0 Yes [id number] 800mg Take 1 [facility] 800 mg 4-05 tablet by ity of tablet 00:00: mouth (three) Medical times Branch daily. metFORMIN 2019-0 Yes 1000mg Take 2 Univ ers 500 mg 4-05 tablets by ity of tablet 00:00: mouth (two) Medical times Branch daily with meals. You can do two pills in the morning and one in the evening. insulin NPH 2019-0 Yes 80U inject 80 U nivers and regular 4-05 Units ity of human 70-30 00:00: under the [place] (NOVOLIN 00 skin 2 Medical 70/30 U-100 (two) Branch INSULIN) times 100 unit/mL daily (70-30) before injection breakfast and dinner. gabapentin 2019-0 Yes [id number] 800mg Take 1 [facility] 800 mg 4-05 tablet by ity of tablet 00:00: mouth 3 (three) Medical times Branch daily. metFORMIN 2019-0 Yes 1000mg Take 2 Univ ers 500 mg 4-05 tablets by ity of tablet 00:00: mouth (two) Medical times Branch daily with meals. You can do two pills in the morning and one in the evening. insulin NPH 2019-0 Yes 80U inject 80 U nivers and regular 4-05 Units ity of human 70-30 00:00: under the [place] (NOVOLIN 00 skin 2 Medical 70/30 U-100 (two) Branch INSULIN) times 100 unit/mL daily (70-30) before injection breakfast and dinner. gabapentin 2019-0 Yes [id number] 800mg Take 1 [facility] 800 mg 4-05 tablet by ity of tablet 00:00: mouth 3 (three) Medical times Branch daily. metFORMIN 2019-0 Yes 1000mg Take 2 Univ ers 500 mg 4-05 tablets by ity of tablet 00:00: mouth (two) Medical times Branch daily with meals. You can do two pills in the morning and one in the evening. insulin NPH 2019-0 Yes 80U inject 80 U nivers and regular 4-05 Units ity of human 70-30 00:00: under the [place] (NOVOLIN 00 skin 2 Medical 70/30 U-100 (two) Branch INSULIN) times 100 unit/mL daily (70-30) before injection breakfast and dinner. gabapentin 2019-0 Yes [id number] 800mg Take 1 [facility] 800 mg 4-05 tablet by ity of tablet 00:00: mouth (three) Medical times Branch daily. metFORMIN 2019-0 Yes 1000mg Take 2 Univ ers 500 mg 4-05 tablets by ity of tablet 00:00: mouth (two) Medical times Branch daily with meals. You can do two pills in the morning and one in the evening. insulin NPH 2019-0 Yes 80U inject 80 U nivers and regular 4-05 Units ity of human 70-30 00:00: under the [place] (NOVOLIN 00 skin 2 Medical 70/30 U-100 (two) Branch INSULIN) times 100 unit/mL daily (70-30) before injection breakfast and dinner. gabapentin 2019-0 Yes [id number] 800mg Take 1 [facility] 800 mg 4-05 tablet by ity of tablet 00:00: mouth 3 (three) Medical times Branch daily. metFORMIN 2019-0 Yes 1000mg Take 2 Univ ers 500 mg 4-05 tablets by ity of tablet 00:00: mouth (two) Medical times Branch daily with meals. You can do two pills in the morning and one in the evening. insulin NPH 2019-0 Yes 80U inject 80 U nivers and regular 4-05 Units ity of human 70-30 00:00: under the [place] (NOVOLIN 00 skin 2 Medical 70/30 U-100 (two) Branch INSULIN) times 100 unit/mL daily (70-30) before injection breakfast and dinner. gabapentin 2019-0 Yes [id number] 800mg Take 1 [facility] 800 mg 4-05 tablet by ity of tablet 00:00: mouth (three) Medical times Branch daily. metFORMIN 2019-0 Yes 1000mg Take 2 Univ ers 500 mg 4-05 tablets by ity of tablet 00:00: mouth (two) Medical times [place] daily with meals. You can do two pills in the morning and one in the evening. gabapentin 2019-0 Yes [id number] 800mg Take 1 [facility] 800 mg 4-05 tablet by ity of tablet 00:00: mouth (three) Medical times Branch daily. metFORMIN 2019-0 Yes 1000mg Take 2 Univ ers 500 mg 4-05 tablets by ity of tablet 00:00: mouth (two) Medical times [place] daily with meals. You can do two pills in the morning and one in the evening. gabapentin 2019-0 Yes [id number] 800mg Take 1 [facility] 800 mg 4-05 tablet by ity of tablet 00:00: mouth (three) Medical times Branch daily. metFORMIN 2019-0 Yes 1000mg Take 2 Univ ers 500 mg 4-05 tablets by ity of tablet 00:00: mouth (two) Medical times [place] daily with meals. You can do two pills in the morning and one in the evening. gabapentin 2019-0 Yes [id number] 800mg Take 1 [facility] 800 mg 4-05 tablet by ity of tablet 00:00: mouth (three) Medical times Branch daily. metFORMIN 2019-0 Yes 1000mg Take 2 Univ ers 500 mg 4-05 tablets by ity of tablet 00:00: mouth (two) Medical times [place] daily with meals. You can do two pills in the morning and one in the evening. gabapentin 2019-0 Yes [id number] 800mg Take 1 [facility] 800 mg 4-05 tablet by ity of tablet 00:00: mouth (three) Medical times Branch daily. metFORMIN 2019-0 Yes 1000mg Take 2 Univ ers 500 mg 4-05 tablets by ity of tablet 00:00: mouth (two) Medical times Branch daily with meals. You can do two pills in the morning and one in the evening. gabapentin 2019-0 Yes [id number] 800mg Take 1 [facility] 800 mg 4-05 tablet by ity of tablet 00:00: mouth (three) Medical times Branch daily. metFORMIN 2019-0 Yes 1000mg Take 2 Univ ers 500 mg 4-05 tablets by ity of tablet 00:00: mouth (two) Medical times Branch daily with meals. You can do two pills in the morning and one in the evening. gabapentin 2019-0 Yes [id number] 800mg Take 1 [facility] 800 mg 4-05 tablet by ity of tablet 00:00: mouth (three) Medical times Branch daily. metFORMIN 2019-0 Yes 1000mg Take 2 Univ ers 500 mg 4-05 tablets by ity of tablet 00:00: mouth (two) Medical times Branch daily with meals. You can do two pills in the morning and one in the evening. gabapentin 2019-0 Yes [id number] 800mg Take 1 [facility] 800 mg 4-05 tablet by ity of tablet 00:00: mouth (three) Medical times Branch daily. metFORMIN 2019-0 Yes 1000mg Take 2 Univ ers 500 mg 4-05 tablets by ity of tablet 00:00: mouth (two) Medical times Branch daily with meals. You can do two pills in the morning and one in the evening. gabapentin 2019-0 Yes [id number] 800mg Take 1 [facility] 800 mg 4-05 tablet by ity of tablet 00:00: mouth (three) Medical times Branch daily. metFORMIN 2019-0 Yes 1000mg Take 2 Univ ers 500 mg 4-05 tablets by ity of tablet 00:00: mouth (two) Medical times Branch daily with meals. You can do two pills in the morning and one in the evening. gabapentin 2019-0 Yes [id number] 800mg Take 1 [facility] 800 mg 4-05 tablet by ity of tablet 00:00: mouth (three) Medical times Branch daily. metFORMIN 2019-0 Yes 1000mg Take 2 Univ ers 500 mg 4-05 tablets by ity of tablet 00:00: mouth 2 [place] 00 (two) Medical times Branch daily with meals. You can do two pills in the morning and one in the evening. metFORMIN 2020- No 1000mg Take 2 Uni vers 500 mg 4-05 07-09 tablets by ity of tablet 00:00: 00:00 mouth 2 [place] 00 :00 (two) Medical times Branch daily with meals. You can do two pills in the morning and one in the evening. gabapentin 2020- No [id number] 800mg Take 1 [facility] 800 mg 4-05 05-05 tablet by ity of tablet 00:00: 00:00 mouth 3 [place] 00 :00 (three) Medical times Branch daily. gabapentin 2020- No [id number] 800mg Take 1 [facility] 800 mg 4-05 05-05 tablet by ity of tablet 00:00: 00:00 mouth 3 [place] 00 :00 (three) Medical times Branch daily. gabapentin 2019- No [id number] 800mg Take 1 [facility] 800 mg 4-05 05-05 tablet by ity of tablet 00:00: 00:00 mouth 3 [place] 00 :00 (three) Medical times Branch daily. HYDROcodone 2017-05 Yes 1{tbl} Take 1 Un [place] -acetaminop 0-01 tablet by ity of hen 7.5-325 00:00: mouth 2 [place] mg per 00 (two) Medical tablet times Branch daily. HYDROcodone 2017-05 Yes 1{tbl} Take 1 Un cali -acetaminop 0-01 tablet by ity of hen 7.5-325 00:00: mouth 2 [place] mg per 00 (two) Medical tablet times Branch daily. HYDROcodone 2017-05 Yes 1{tbl} Take 1 Un cali -acetaminop 0-01 tablet by ity of hen 7.5-325 00:00: mouth 2 [place] mg per 00 (two) Medical tablet times Branch daily. HYDROcodone 2017-05 Yes 1{tbl} Take 1 Un [place]i -acetaminop 0-01 tablet by ity of hen 7.5-325 00:00: mouth 2 [place] mg per 00 (two) Medical tablet times Branch daily. HYDROcodone 2017-05 Yes 1{tbl} Take 1 Un [place] -acetaminop 0-01 tablet by ity of hen 7.5-325 00:00: mouth 2 [place] mg per 00 (two) Medical tablet times Branch daily. HYDROcodone 2017-05 Yes 1{tbl} Take 1 Un [place] -acetaminop 0-01 tablet by ity of hen 7.5-325 00:00: mouth 2 [place] mg per 00 (two) Medical tablet times Branch daily. HYDROcodone 2017-05 Yes 1{tbl} Take 1 Un [place] -acetaminop 0-01 tablet by ity of hen 7.5-325 00:00: mouth 2 [place] mg per 00 (two) Medical tablet times Branch daily. HYDROcodone 2017-05 Yes 1{tbl} Take 1 Un [place] -acetaminop 0-01 tablet by ity of hen 7.5-325 00:00: mouth 2 [place] as mg per 00 (two) Medical tablet times Branch daily. Insulin Yes [id number] Use as Uni vers Syringe-Nee 3-30 directed ity of dle U-100 00:00: [place] (INSULIN 00 Medical SYRINGE) 1 Branch mL 30 gauge x 5/16 Syrg Insulin Yes [id number] Use as Uni vers Syringe-Nee 3-30 directed ity of dle U-100 00:00: [place] (INSULIN 00 Medical SYRINGE) 1 Branch mL 30 gauge x 5/16 Syrg Insulin 2017- Yes [id number] Use as Uni vers Syringe-Nee 3-30 directed ity of dle U-100 00:00: [place] (INSULIN 00 Medical SYRINGE) 1 Branch mL 30 gauge x 5/16 Syrg Insulin 2017-0 Yes [id number] Use as Uni vers Syringe-Nee 3-30 directed ity of dle U-100 00:00: [place] (INSULIN 00 Medical SYRINGE) 1 Branch mL 30 gauge x 5/16 Syrg Insulin 2017- Yes [id number] Use as Uni vers Syringe-Nee 3-30 directed ity of dle U-100 00:00: [place] (INSULIN 00 Medical SYRINGE) 1 Branch mL 30 gauge x 5/16 Syrg Insulin 2018-0 Yes [id number] Use as Uni vers Syringe-Nee 3-30 directed ity of dle U-100 00:00: [place] (INSULIN 00 Medical SYRINGE) 1 Branch mL 30 gauge x 5/16 Syrg Insulin 2018-0 Yes [id number] Use as Uni vers Syringe-Nee 3-30 directed ity of dle U-100 00:00: [place] (INSULIN 00 Medical SYRINGE) 1 Branch mL 30 gauge x 5/16 Syrg Insulin 2018-0 Yes [id number] Use as Uni vers Syringe-Nee 3-30 directed ity of dle U-100 00:00: [place] (INSULIN 00 Medical SYRINGE) 1 Branch mL 30 gauge x 5/16 Syrg Insulin 2018-0 Yes [id number] Use as Uni vers Syringe-Nee 3-30 directed ity of dle U-100 00:00: [place] (INSULIN 00 Medical SYRINGE) 1 Branch mL 30 gauge x 5/16 Syrg Insulin 2017-0 Yes [id number] Use as Uni vers Syringe-Nee 3-30 directed ity of dle U-100 00:00: [place] (INSULIN 00 Medical SYRINGE) 1 Branch mL 30 gauge x 5/16 Syrg Insulin 2017-0 Yes [id number] Use as Uni vers Syringe-Nee 3-30 directed ity of dle U-100 00:00: [place] (INSULIN 00 Medical SYRINGE) 1 Branch mL 30 gauge x 5/16 Syrg Insulin 2018-0 Yes [id number] Use as Uni vers Syringe-Nee 3-30 directed ity of dle U-100 00:00: [place] (INSULIN 00 Medical SYRINGE) 1 Branch mL 30 gauge x 5/16 Syrg Insulin 2018-0 Yes [id number] Use as Uni vers Syringe-Nee 3-30 directed ity of dle U-100 00:00: [place] (INSULIN 00 Medical SYRINGE) 1 Branch mL 30 gauge x 5/16 Syrg Insulin 2018-0 Yes [id number] Use as Uni vers Syringe-Nee 3-30 directed ity of dle U-100 00:00: [place] (INSULIN 00 Medical SYRINGE) 1 Branch mL 30 gauge x 5/16 Syrg Insulin 2018-0 Yes [id number] Use as Uni vers Syringe-Nee 3-30 directed ity of dle U-100 00:00: [place] (INSULIN 00 Medical SYRINGE) 1 Branch mL 30 gauge x 5/16 Syrg Insulin 2018-0 Yes [id number] Use as Uni vers Syringe-Nee 3-30 directed ity of dle U-100 00:00: [place] (INSULIN 00 Medical SYRINGE) 1 Branch mL 30 gauge x 5/16 Syrg Insulin 2018-0 Yes [id number] Use as Uni vers Syringe-Nee 3-30 directed ity of dle U-100 00:00: [place] (INSULIN 00 Medical SYRINGE) 1 Branch mL 30 gauge x 5/16 Syrg Insulin 2018-0 Yes [id number] Use as Uni vers Syringe-Nee 3-30 directed ity of dle U-100 00:00: [place] (INSULIN 00 Medical SYRINGE) 1 Branch mL 30 gauge x 5/16 Syrg Insulin 2018-0 Yes [id number] Use as Uni vers Syringe-Nee 3-30 directed ity of dle U-100 00:00: [place] (INSULIN 00 Medical SYRINGE) 1 Branch mL 30 gauge x 5/16 Syrg Insulin 2017-0 Yes [id number] Use as Uni vers Syringe-Nee 3-30 directed ity of dle U-100 00:00: [place] (INSULIN 00 Medical SYRINGE) 1 Branch mL 30 gauge x 5/16 Syrg Insulin 2017-0 Yes [id number] Use as Uni vers Syringe-Nee 3-30 directed ity of dle U-100 00:00: [place] (INSULIN 00 Medical SYRINGE) 1 Branch mL 30 gauge x 5/16 Syrg Insulin 2018-0 Yes [id number] Use as Uni vers Syringe-Nee 3-30 directed ity of dle U-100 00:00: [place] (INSULIN 00 Medical SYRINGE) 1 Branch mL 30 gauge x 5/16 Syrg Insulin 2018-0 Yes [id number] Use as Uni vers Syringe-Nee 3-30 directed ity of dle U-100 00:00: [place] (INSULIN 00 Medical SYRINGE) 1 Branch mL 30 gauge x 5/16 Syrg Insulin 2018-0 Yes [id number] Use as Uni vers Syringe-Nee 3-30 directed ity of dle U-100 00:00: [place] (INSULIN 00 Medical SYRINGE) 1 Branch mL 30 gauge x 5/16 Syrg Insulin 2018-0 Yes [id number] Use as Uni vers Syringe-Nee 3-30 directed ity of dle U-100 00:00: [place] (INSULIN 00 Medical SYRINGE) 1 Branch mL 30 gauge x 5/16 Syrg Insulin 2018-0 Yes [id number] Use as Uni vers Syringe-Nee 3-30 directed ity of dle U-100 00:00: [place] (INSULIN 00 Medical SYRINGE) 1 Branch mL 30 gauge x 5/16 Syrg Insulin 2018-0 Yes [id number] Use as Uni vers Syringe-Nee 3-30 directed ity of dle U-100 00:00: [place] (INSULIN 00 Medical SYRINGE) 1 Branch mL 30 gauge x 5/16 Syrg Insulin 2018-0 Yes [id number] Use as Uni vers Syringe-Nee 3-30 directed ity of dle U-100 00:00: [place] (INSULIN 00 Medical SYRINGE) 1 Branch mL 30 gauge x 5/16 Syrg Insulin 2017-0 Yes [id number] Use as Uni vers Syringe-Nee 3-30 directed ity of dle U-100 00:00: [place] (INSULIN 00 Medical SYRINGE) 1 Branch mL 30 gauge x 5/16 Syrg Insulin 2017-0 Yes [id number] Use as Uni vers Syringe-Nee 3-30 directed ity of dle U-100 00:00: [place] (INSULIN 00 Medical SYRINGE) 1 Branch mL 30 gauge x 5/16 Syrg Insulin 2017-0 Yes [id number] Use as Uni vers Syringe-Nee 3-30 directed ity of dle U-100 00:00: [place] (INSULIN 00 Medical SYRINGE) 1 Branch mL 30 gauge x 5/16 Syrg Insulin 2017-0 Yes [id number] Use as Uni vers Syringe-Nee 3-30 directed ity of dle U-100 00:00: [place] (INSULIN 00 Medical SYRINGE) 1 Branch mL 30 gauge x 5/16 Syrg Insulin 2018-0 Yes [id number] Use as Uni vers Syringe-Nee 3-30 directed ity of dle U-100 00:00: [place] (INSULIN 00 Medical SYRINGE) 1 Branch mL 30 gauge x 5/16 Syrg Insulin 2018-0 Yes [id number] Use as Uni vers Syringe-Nee 3-30 directed ity of dle U-100 00:00: [place] (INSULIN 00 Medical SYRINGE) 1 Branch mL 30 gauge x 5/16 Syrg Insulin 2018-0 2020- No [id number] Use as Un cali Syringe-Nee 3-30 0814 directed ity of dle U-100 00:00: 00:00 [place] (INSULIN 00 :00 Medical SYRINGE) 1 Branch mL 30 gauge x 5/16 Syrg Insulin 2018-0 2020- No [id number] Use as Un cali Syringe-Nee 08-25 08-14 directed ity of dle U-100 00:00: 00:00 [place] (INSULIN 00 :00 Medical SYRINGE) 1 Branch mL 30 gauge x 5/16 Syrg Atorvastati Atorvastati Yes Dada [address] [facility] Calcium n Calcium [facility] Lexapro Lexapro Yes Dada [address] [facility] Metoprolol Metoprolol Yes Dada [address] [facility] [address] Tartrate Tartrate Horan with food [facility] Ranexa Ranexa Yes [facility] Insulin Insulin Yes Dada [address] [address] Aspart Prot Aspart Prot Horan BID [facility] & [facility]art [facility] Aspirin Aspirin Yes Dada [address] [facility] Gabapentin Gabapentin Yes Dada [address] [facility] Furosemide Furosemide Yes Dada [address] [facility] Duloxetine Duloxetine Yes Dada [address] [facility] [address] HCl HCl [facility] Xanax Xanax Yes Dada [address] [facility] Clopidogrel Clopidogrel Yes Dada [address] [facility] [address] Bisulfate Bisulfate [facility] Metformin Metformin Yes Dada [address] [facility] [address] HCl HCl [facility]an with meals [facility] Pantoprazol Pantoprazol Yes Dada [address] [facility] [address] e Sodium e Sodium [facility] Klor-Con Klor-Con Yes Dada [address] M10 M10 [facility] with food [facility] Duloxetine Duloxetine Yes Dada [address] HCl HCl [facility] Levetiracet Levetiracet Yes Dada [address] [address] am am [facility] [place] Yes Dada [address] [facility] [address] [facility] needed [facility] Lexapro Lexapro Yes Dada [address] [facility] Atorvastati Atorvastati Yes Dada [address] [facility] n Calcium n Calcium [facility] Clopidogrel Clopidogrel Yes Dada [address] Bisulfate Bisulfate [facility] Furosemide Furosemide Yes Dada [address] [facility] Immunizations Ordered Filled Immunization Date Status Comments [facility] e Immunization Name Name SARS-COV-2 COVID-19 2021-01-17 Completed Unive rsity of PFIZER VACCINE 00:00:00 [facility] SARS-COV-2 COVID-19 2021-01-17 Completed Unive rsity of PFIZER VACCINE 00:00:00 [facility] SARS-COV-2 COVID-19 2021-01-17 Completed Unive rsity of PFIZER VACCINE 00:00:00 [facility] SARS-COV-2 COVID-19 2021-01-17 Completed Unive rsity of PFIZER VACCINE 00:00:00 [facility] SARS-COV-2 COVID-19 2021-01-17 Completed Unive rsity of PFIZER VACCINE 00:00:00 [facility] Vital Signs Vital Name Observation Time Observation Value Comments Source Systolic blood 2021-02-12 19:25:00 123 mm[Hg] Univer sity of pressure [facility] Diastolic blood 2021-02-12 19:25:00 80 mm[Hg] Unive rsity of pressure [facility] Heart rate 2021-02-12 19:25:00 87 /min [facility] Body temperature 2021-02-12 19:25:00 36.83 Lucero [facility] Respiratory rate 2021-02-12 19:25:00 16 /min [facility] Body height 2021-02-12 19:25:00 162.6 cm [facility] Body weight 2021-02-12 19:25:00 64.864 kg [facility] BMI 2021-02-12 19:25:00 24.55 kg/m2 [facility] Oxygen saturation in 2021-02-12 19:25:00 99 /min [facility] blood by [facility] blanquita Pulse oximetry Branch Systolic blood 2021-02-12 18:15:00 108 mm[Hg] Univer sity of pressure [place] [facility] Diastolic blood 2021-02-12 18:15:00 73 mm[Hg] Unive rsity of pressure [place] [facility] Heart rate 2021-02-12 18:15:00 59 /min [facility] [place] [facility] Respiratory rate 2021-02-12 18:15:00 18 /min Univ ersity [facility] [place] [facility] Body height 2021-02-12 18:15:00 162.6 cm [facility] [place] [facility] Body weight 2021-02-12 18:15:00 64.864 kg [facility] [place] [facility] BMI 2021-02-12 18:15:00 24.55 kg/m2 [facility] [place] [facility] Systolic blood 2021-01-17 17:22:00 129 mm[Hg] Univer sity of pressure [place] [facility] Diastolic blood 2021-01-17 17:22:00 83 mm[Hg] Unive rsity of pressure [facility] Heart rate 2021-01-17 17:22:00 85 /min [facility] [place] [facility] Body temperature 2021-01-17 17:22:00 36.06 Lucero [facility] [place] [facility] Respiratory rate 2021-01-17 17:22:00 16 /min Univ ersity of [place] [facility] Oxygen saturation in 2021-01-17 17:22:00 95 /min [facility]terial blood by [facility] Pulse oximetry Branch Body height 2021-01-15 21:03:00 162.6 cm [facility] [place] [facility] Body weight 2021-01-15 21:03:00 62.46 kg [facility] [place] [facility] BMI 2021-01-15 21:03:00 23.64 kg/m2 [facility] [place] [facility] Systolic blood 2021-01-15 19:31:00 109 mm[Hg] Univer sity of pressure [facility] Diastolic blood 2021-01-15 19:31:00 71 mm[Hg] Unive rsity of pressure [facility] Heart rate 2021-01-15 19:31:00 88 /min [facility] [place] [facility] Respiratory rate 2021-01-15 19:31:00 19 /min Univ ersity of [place] [facility] Body height 2021-01-15 19:31:00 162.6 cm [facility] [place] [facility] Body weight 2021-01-15 19:31:00 62.143 kg [facility] [place] [facility] BMI 2021-01-15 19:31:00 23.52 kg/m2 [facility] [place] [facility] Oxygen saturation in 2021-01-15 19:31:00 93 /min [facility]ial blood by [facility] Pulse oximetry Branch Systolic blood 2021-01-01 16:37:00 118 mm[Hg] Univer sity of pressure [place] [facility] Diastolic blood 2021-01-01 16:37:00 77 mm[Hg] Unive rsity of pressure [place] [facility] Heart rate 2021-01-01 16:37:00 102 /min [facility] [place] [facility] Body weight 2021-01-01 16:37:00 61.689 kg [facility] [place] [facility] BMI 2021-01-01 16:37:00 23.34 kg/m2 [facility] [place] [facility] Oxygen saturation in 2021-01-01 16:37:00 100 /min [facility]ial blood by [facility] Pulse oximetry Branch Systolic blood 2020-12-01 15:53:00 123 mm[Hg] Univer sity of pressure [place] [facility] Diastolic blood 2020-12-01 15:53:00 69 mm[Hg] Unive rsity of pressure [facility] Heart rate 2020-12-01 15:53:00 90 /min [facility] [place] [facility] Body temperature 2020-12-01 15:53:00 36.22 Lucero Univ ers[facility] [place] [facility] Respiratory rate 2020-12-01 15:53:00 16 /min Univ ers[facility] [place] [facility] Oxygen saturation in 2020-12-01 15:53:00 97 /min [facility]ial blood by [facility] Pulse oximetry Branch Body height 2020-11-30 14:35:00 162.6 cm [facility] [place] [facility] Body weight 2020-11-30 14:35:00 64.411 kg [facility] [place] [facility] BMI 2020-11-30 14:35:00 24.37 kg/m2 [facility] [place] [facility] Systolic blood 2020-11-13 20:00:00 115 mm[Hg] Univer sity of pressure [place] [facility] Diastolic blood 2020-11-13 20:00:00 77 mm[Hg] Unive rsity of pressure [place] [facility] Heart rate 2020-11-13 20:00:00 82 /min [facility] [place] [facility] Respiratory rate 2020-11-13 20:00:00 16 /min Univ ers[facility] [place] [facility] Body height 2020-11-13 20:00:00 162.6 cm [facility] [place] [facility] Body weight 2020-11-13 20:00:00 64.728 kg [facility] [place] [facility] BMI 2020-11-13 20:00:00 24.49 kg/m2 [facility] [place] [facility] Oxygen saturation in 2020-11-13 20:00:00 94 /min [facility] Arterial blood by [place] [employer] blanquita Pulse oximetry Branch Systolic blood 2020-10-07 19:37:00 118 mm[Hg] Univer sity of pressure [place] [facility] Diastolic blood 2020-10-07 19:37:00 80 mm[Hg] Unive rsity of pressure [place] [facility] Heart rate 2020-10-07 19:37:00 95 /min [facility] [place] [facility] Body weight 2020-10-07 19:37:00 59.875 kg [facility] [place] [facility] BMI 2020-10-07 19:37:00 22.65 kg/m2 [facility] [place] [facility] Oxygen saturation in 2020-10-07 19:37:00 97 /min [facility]ial blood by [place] [employer] bl[facility] Pulse oximetry Branch Heart rate 2020-10-01 20:20:00 60 /min [facility] [place] [facility] Systolic blood 2020-10-01 20:20:00 120 mm[Hg] Univer sity of pressure [place] [facility] Diastolic blood 2020-10-01 20:20:00 80 mm[Hg] Unive rsity of pressure [place] [facility] Heart rate 2020-10-01 20:20:00 60 /min [facility] [place] [facility] Systolic blood 2020-10-01 20:20:00 120 mm[Hg] Univer sity of pressure [place] [facility] Diastolic blood 2020-10-01 20:20:00 80 mm[Hg] Unive rsity of pressure [facility] Heart rate 2020-10-01 20:20:00 60 /min [facility] [place] [facility] Systolic blood 2020-10-01 20:20:00 120 mm[Hg] Univer sity of pressure [place] [facility] Diastolic blood 2020-10-01 20:20:00 80 mm[Hg] Unive rsity of pressure [place] [facility] Heart rate 2020-10-01 20:20:00 60 /min [facility] [place] [facility] Systolic blood 2020-10-01 20:20:00 120 mm[Hg] Univer sity of pressure [place] [facility] Diastolic blood 2020-10-01 20:20:00 80 mm[Hg] Unive rsity of pressure [place] [facility] Heart rate 2020-10-01 20:20:00 60 /min [facility] [place] [facility] Systolic blood 2020-10-01 20:20:00 120 mm[Hg] Univer sity of pressure [place] [facility] Diastolic blood 2020-10-01 20:20:00 80 mm[Hg] Unive rsity of pressure [facility] Heart rate 2020-10-01 20:20:00 60 /min [facility] [place] [facility] Systolic blood 2020-10-01 20:20:00 120 mm[Hg] Univer sity of pressure [place] [facility] Diastolic blood 2020-10-01 20:20:00 80 mm[Hg] Unive rsity of pressure [place] [facility] Systolic blood 2020-09-07 20:47:00 104 mm[Hg] Univer sity of pressure [place] [facility] Diastolic blood 2020-09-07 20:47:00 62 mm[Hg] Unive rsity of pressure [facility] Heart rate 2020-09-07 20:47:00 88 /min [facility] [place] [facility] Body temperature 2020-09-07 20:47:00 36.17 Lucero [facility] [place] [facility] Respiratory rate 2020-09-07 20:47:00 18 /min Univ [facility] [place] [facility] Oxygen saturation in 2020-09-07 20:47:00 99 /min [facility]ial blood by [facility] Pulse oximetry Branch Body height 2020-09-05 07:40:00 162.6 cm [facility] [place] [facility] Body weight 2020-09-05 07:40:00 60.737 kg [facility] [place] [facility] BMI 2020-09-05 07:40:00 22.97 kg/m2 [facility] [place] [facility] Systolic blood 2020-09-04 21:15:00 130 mm[Hg] Univer sity of pressure [place] [facility] Diastolic blood 2020-09-04 21:15:00 83 mm[Hg] Unive rsity of pressure [place] [facility] Heart rate 2020-09-04 21:15:00 85 /min [facility] [place] [facility] Respiratory rate 2020-09-04 21:15:00 19 /min Univ ers[facility] [place] [facility] Body height 2020-09-04 21:15:00 162.6 cm [facility] [place] [facility] Body weight 2020-09-04 21:15:00 65.318 kg [facility] [place] [facility] BMI 2020-09-04 21:15:00 24.72 kg/m2 [facility] [place] [facility] Systolic blood 2020-05-08 19:29:00 128 mm[Hg] Univer sity of pressure [place] [facility] Diastolic blood 2020-05-08 19:29:00 80 mm[Hg] Unive rsity of pressure [place] [facility] Heart rate 2020-05-08 19:29:00 82 /min [facility] [place] [facility] Body temperature 2020-05-08 19:29:00 36.39 Lucero [facility] [place] [facility] Body height 2020-05-08 19:29:00 162.6 cm [facility] [place] [facility] Body weight 2020-05-08 19:29:00 68.04 kg [facility] [place] [facility] BMI 2020-05-08 19:29:00 25.75 kg/m2 [facility] [place] [facility] Systolic blood 2020-04-03 19:48:00 104 mm[Hg] Univer sity of pressure [place] [facility] Diastolic blood 2020-04-03 19:48:00 66 mm[Hg] Unive rsity of pressure [facility] Heart rate 2020-04-03 19:48:00 81 /min [facility] [place] [facility] Body temperature 2020-04-03 19:48:00 36.72 Lucero [facility] [place] [facility] Respiratory rate 2020-04-03 19:48:00 18 /min [facility] [place] [facility] Body height 2020-04-03 19:48:00 162.6 cm [facility] [place] [facility] Body weight 2020-04-03 19:48:00 69.4 kg [facility] [place] [facility] BMI 2020-04-03 19:48:00 26.26 kg/m2 [facility] [place] [facility] Systolic blood 2020-01-10 21:55:00 126 mm[Hg] Univer sity of pressure [place] [facility] Diastolic blood 2020-01-10 21:55:00 84 mm[Hg] Unive rsity of pressure [facility] Heart rate 2020-01-10 21:55:00 93 /min [facility] [place] [facility] Respiratory rate 2020-01-10 21:55:00 16 /min [facility] [place] [facility] Body height 2020-01-10 21:55:00 162.6 cm [facility] [place] [facility] Body weight 2020-01-10 21:55:00 72.303 kg [facility] [place] [facility] BMI 2020-01-10 21:55:00 27.36 kg/m2 [facility] [place] [facility] Systolic blood 2019-10-11 20:16:00 124 mm[Hg] Univer sity of pressure [place] [facility] Diastolic blood 2019-10-11 20:16:00 77 mm[Hg] Unive rsity of pressure [facility] Heart rate 2019-10-11 20:16:00 92 /min [facility] [place] [facility] Body temperature 2019-10-11 20:16:00 36.89 Lucero [facility] [place] [facility] Respiratory rate 2019-10-11 20:16:00 18 /min [facility] [place] [facility] Body height 2019-10-11 20:16:00 162.6 cm [facility] [place] [facility] Body weight 2019-10-11 20:16:00 80.74 kg [facility] [place] [facility] BMI 2019-10-11 20:16:00 30.55 kg/m2 [facility] [place] [facility] Heart rate 2019-08-16 16:31:00 90 /min [facility] [place] [facility] Respiratory rate 2019-08-16 16:31:00 18 /min Univ ersity of [facility] Oxygen saturation in 2019-08-16 16:31:00 97 /min [facility] Arterial blood by [facility] Pulse oximetry Branch Systolic blood 2019-08-16 16:17:00 110 mm[Hg] Univer sity of pressure [facility] Diastolic blood 2019-08-16 16:17:00 58 mm[Hg] Unive rsity of pressure [facility] Body temperature 2019-08-16 16:17:00 36 Lucero [facility] [place] [facility] Body weight 2019-08-16 08:21:00 79.833 kg [facility] [place] [facility] BMI 2019-08-16 08:21:00 30.21 kg/m2 [facility] [place] [facility] Body height 2019-08-15 13:32:00 162.6 cm [facility] [place] [facility] Systolic blood 2019-08-05 16:11:00 145 mm[Hg] Univer sity of pressure [facility] Diastolic blood 2019-08-05 16:11:00 88 mm[Hg] Unive rsity of pressure [facility] Heart rate 2019-08-05 16:11:00 92 /min [facility] [place] [facility] Respiratory rate 2019-08-05 16:11:00 19 /min [facility] [place] [facility] Body height 2019-08-05 16:11:00 162.6 cm [facility] [place] [facility] Body weight 2019-08-05 16:11:00 80.513 kg [facility] [place] [facility] BMI 2019-08-05 16:11:00 30.47 kg/m2 [facility] [place] [facility] Oxygen saturation in 2019-08-05 16:11:00 99 /min [facility]ial blood by [facility] Pulse oximetry Branch Systolic blood 2019-02-04 15:08:00 117 mm[Hg] Univer sity of pressure [facility] Diastolic blood 2019-02-04 15:08:00 83 mm[Hg] Unive rsity of pressure [facility] Heart rate 2019-02-04 15:08:00 80 /min [facility] [place] [facility] Respiratory rate 2019-02-04 15:08:00 20 /min [facility] [place] [facility] Body height 2019-02-04 15:08:00 162.6 cm [facility] [place] [facility] Oxygen saturation in 2019-02-04 15:08:00 99 /min [facility]ial blood by [facility] Pulse oximetry Branch Systolic blood 2019-01-04 19:51:00 124 mm[Hg] [facility], Txer sity of pressure [facility] Diastolic blood 2019-01-04 19:51:00 83 mm[Hg] [facility] Heart rate 2019-01-04 19:51:00 79 /min [facility] Respiratory rate 2019-01-04 19:51:00 16 /min [facility] Body height 2019-01-04 19:51:00 162.6 cm [facility] Body weight 2019-01-04 19:51:00 76.204 kg [facility] BMI 2019-01-04 19:51:00 28.84 kg/m2 [facility] Procedures Procedure Date / Time Performing Clinician Source Performed POCT GLUCOSE (AUTOMATED) 2021-02-12 21:28:00 Fabby Nieves [facility] BASIC METABOLIC PANEL (NA, 2021-02-12 20:36:00 Fabby Nieves [facility] K, CL, CO2, GLUCOSE, BUN, Medica l Branch CREATININE, [place]) CBC WITH DIFF 2021-02-12 20:36:00 Fabby Nieves [facility] URINALYSIS 2021-02-12 20:36:00 Fabby Nieves [facility] POCT GLUCOSE (AUTOMATED) 2021-02-12 19:33:00 Doctor Unassigned, [facility] [address] [facility] CONSENT/REFUSAL FOR 2021-02-12 19:10:35 Doctor Unassigned, [facility] DIAGNOSIS AND TREATMENT [address] [facility] POCT GLUCOSE (AUTOMATED) 2021-01-17 17:24:00 Celso Duran [facility] POCT GLUCOSE (AUTOMATED) 2021-01-17 12:38:00 Celso Duran [facility] BASIC METABOLIC PANEL (NA, 2021-01-17 09:06:00 Priyanka Haney [facility] K, CL, CO2, GLUCOSE, BUN, Medica l Branch CREATININE, CA) CBC WITH DIFF 2021-01-17 09:06:00 Priyanka Haney [facility] POCT GLUCOSE (AUTOMATED) 2021-01-16 21:11:00 Celso Duran [facility] POCT GLUCOSE (AUTOMATED) 2021-01-16 16:41:00 Celso Duran [facility] POCT GLUCOSE (AUTOMATED) 2021-01-16 12:48:00 Celso Duran [facility] CBC WITH DIFF 2021-01-16 08:25:00 Priyanka Haney [facility] POCT GLUCOSE (AUTOMATED) 2021-01-16 08:24:00 Celso Duran [facility] MAGNESIUM 2021-01-16 08:17:00 Priyanka Haney [facility] BASIC METABOLIC PANEL (NA, 2021-01-16 08:17:00 Priyanka Haney [facility] K, CL, CO2, GLUCOSE, BUN, Medica l Branch CREATININE, CA) LIPID PANEL ([id number])(TOTAL 2021-01-16 08:17:00 Priyanka Haney [facility] CHOLESTEROL, [facility] TRIGLYCERIDES, HDL) LOW-DENSITY LIPOPROTEIN, 2021-01-16 08:17:00 Priyanka Haney [facility] DIRECT [facility] POCT GLUCOSE (AUTOMATED) 2021-01-16 03:51:00 Celso Duran [facility] URINE CULTURE 2021-01-16 01:56:00 Priyanka Haney [facility] POCT GLUCOSE (AUTOMATED) 2021-01-16 01:06:00 Celso Duran [facility] URINALYSIS 2021-01-15 23:47:00 Priyanka Haney [facility] BLOOD CULTURE SCREEN 2021-01-15 23:39:00 Priyanka Haney [facility] [facility] PHOSPHORUS 2021-01-15 23:30:00 Priyanka Haney [facility] TROPONIN I 2021-01-15 23:30:00 Priyanka Haney [facility] THYROID STIMULATING 2021-01-15 23:30:00 Priyanka Haney [facility] HORMONE [facility] HEPATIC FUNCTION PANEL 2021-01-15 23:30:00 Priyanka Haney [facility] ([id number]) (ALB,T.PRO,BILI [facility] T,BU/BC,ALT,AST,ALK PHOS) GLYCOSYLATED HEMOGLOBIN 2021-01-15 23:30:00 Priyanka Haney [facility] (A1C) [facility] BLOOD CULTURE SCREEN 2021-01-15 23:27:00 Priyanka Haney [facility] POCT GLUCOSE (AUTOMATED) 2021-01-15 22:30:00 Celso Duran [facility] COVID-19 (ID NOW RAPID 2021-01-15 20:44:00 Priyanka Haney [facility] TESTING) Medical Branch LAB ONLY COVID 2021-01-15 20:44:00 Priyanka Haney [facility] INTERPRETATION [facility] NOTICE OF PRIVACY 2021-01-15 20:25:44 Doctor Unassigned, [facility] PRACTICES [address] [facility] CONSENT/REFUSAL FOR 2021-01-15 20:25:23 Doctor Unassigned, [facility] DIAGNOSIS AND TREATMENT [address] [facility] ASSIGNMENT OF BENEFITS 2021-01-15 20:24:58 Doctor Unassigned, [facility] Name [facility] POCT HEMOGLOBIN A1C TEST 2021-01-01 16:39:00 Anatoly Villegas [facility] POCT GLUCOSE (AUTOMATED) 2020-12-01 17:39:00 Lesia Jc [facility] Branch MAGNESIUM 2020-12-01 10:29:00 Anatoly Wahl [facility] BASIC METABOLIC PANEL (NA, 2020-12-01 10:29:00 Anatoly Wahl [facility] K, CL, CO2, GLUCOSE, BUN, Medica l Branch CREATININE, CA) CBC WITH DIFF 2020-12-01 10:29:00 Vish Anatoly [facility] acute hospital POCT GLUCOSE (AUTOMATED) 2020-12-01 02:29:00 Ra Camarillo [facility] ACTIVATED PARTIAL THRMPLAS 2020-12-01 00:50:00 Miguel Luo [facility] POCT GLUCOSE (AUTOMATED) 2020-11-30 23:07:00 Ra Camarillo [facility] POCT ACT LOW RANGE 2020-11-30 22:17:00 [facility] PO[facility] ACT LOW RANGE 2020-11-30 21:55:00 Salvador Franksmartita [facility] BASIC METABOLIC PANEL (NA, 2020-11-30 14:26:00 Lily Franks [facility] K, CL, CO2, GLUCOSE, BUN, Medica l Branch CREATININE, CA) COVID-19 (ID NOW RAPID 2020-11-30 13:21:[address] [facility] TESTING) Medical Branch LAB ONLY COVID 2020-11-30 13:21:00 Brown Woodward [facility] INTERPRETATION [facility] POCT GLUCOSE(AGE >30DAYS) 2020-10-07 19:39:00 Lakshmi [facility] POCT GLUCOSE (AUTOMATED) 2020-09-07 22:28:00 Jay England [facility] POCT GLUCOSE (AUTOMATED) 2020-09-07 20:47:00 Jay England [facility] POCT GLUCOSE (AUTOMATED) 2020-09-07 20:12:00 Jay England [facility] POCT GLUCOSE (AUTOMATED) 2020-09-07 16:43:00 Jay England [facility] CAROTID DUPLEX BILATERAL - 2020-09-07 15:09:10 Lily Franks [facility] BY VASCULAR LAB [facility] POCT GLUCOSE (AUTOMATED) 2020-09-07 12:50:00 Jay England [facility] COMP. METABOLIC PANEL 2020-09-07 09:28:00 Elyse Aparicio [facility] ([id number]) [facility] CBC WITH DIFF 2020-09-07 09:28:00 [place] [facility] POCT GLUCOSE (AUTOMATED) 2020-09-07 01:42:00 Jay England [facility] CORTISOL STIMULATION 60 2020-09-06 23:08:00 Jay England [facility] CORTISOL STIMULATION 30 2020-09-06 22:36:00 Jay England [facility] CORTISOL STIMULATION 0 MIN 2020-09-06 22:05:00 Jay England [facility] POCT GLUCOSE (AUTOMATED) 2020-09-06 21:04:00 Jay [facility]SE (AUTOMATED) 2020-09-06 19:57:00 Jay England [facility] POCT GLUCOSE (AUTOMATED) 2020-09-06 16:40:00 Jay England [facility] POCT GLUCOSE (AUTOMATED) 2020-09-06 12:45:00 Anastasia Giraldo [facility] [place] [facility] PHOSPHORUS 2020-09-06 11:16:00 Jay England [facility] acute hospital MAGNESIUM 2020-09-06 11:16:00 Alessanrda jonas General acute hospital CORTISOL AM 2020-09-06 11:16:00 Alessandra [facility] COMP. METABOLIC PANEL 2020-09-06 11:16:00 Elyse Aparicio [facility] ([id number] CBC WITH DIFF 2020-09-06 11:16:00 Alessandra [facility] N-TERMINAL PRO-BNP 2020-09-06 11:16:00 Alessandra jonas [facility] POCT GLUCOSE (AUTOMATED) 2020-09-06 01:07:00 Anastasia Giraldo [facility] TROPONIN I 2020-09-06 00:13:00 Alessandra jonas General acute hospital SEDIMENTATION RATE 2020-09-06 00:13:00 Jay England [facility] POCT GLUCOSE (AUTOMATED) 2020-09-05 21:44:00 Anastasia Giraldo [facility] POCT GLUCOSE (AUTOMATED) 2020-09-05 16:54:00 Anastasia Giraldo [facility] POCT GLUCOSE (AUTOMATED) 2020-09-05 13:47:00 Anastasia Giraldo [facility] CT ABDOMEN PELVIS WO 2020-09-05 11:16:59 Alessandra jonas [facility] CONTRAST [facility] CREATINE KINASE 2020-09-05 10:01:00 Alessandra jonas General acute hospital MAGNESIUM 2020-09-05 10:01:00 Alessandra jonas General acute hospital VITAMIN B12, LEVEL 2020-09-05 10:01:00 Alessandra jonas [facility] TROPONIN I 2020-09-05 10:01:00 Alessandra [facility] COMP. METABOLIC PANEL 2020-09-05 10:01:00 Alessandra jonas [facility] ([id number]) [facility] LIPID PANEL ([id number])(TOTAL 2020-09-05 10:01:00 Jay England [facility] CHOLESTEROL, [facility] TRIGLYCERIDES, HDL) CBC WITH DIFF 2020-09-05 10:01:00 Alessandra jonas General acute hospital GLYCOSYLATED HEMOGLOBIN 2020-09-05 10:01:00 Alessandra [facility] (A1C) [facility] PROTHROMBIN TIME / INR 2020-09-05 10:01:00 Alessandra jonas [facility] N-TERMINAL PRO-BNP 2020-09-05 10:01:00 Alessandra jonas [facility] VITAMIN D, 25-OH 2020-09-05 10:01:00 Alessandra [facility] PROCALCITONIN 2020-09-05 10:01:00 Alessandra jonas General acute hospital URINE CULTURE 2020-09-05 05:12:00 Anastasia Giraldo [facility] COVID-19 (ID NOW RAPID 2020-09-05 05:12:00 Anastasia Giraldo [facility] TESTING) [facility] POCT GLUCOSE (AUTOMATED) 2020-09-05 04:24:00 Anastasia Giraldo [facility] ACUTE CARE VENOUS BLOOD 2020-09-05 02:29:00 Anastasia Giraldo [facility] GAS [facility] PHOSPHORUS 2020-09-05 02:22:00 Alessandra jonas General acute hospital LIPASE 2020-09-05 02:22:00 Anastasia Giraldo [facility] MAGNESIUM 2020-09-05 02:22:00 Alessandra [facility] TROPONIN I 2020-09-05 02:22:00 Anastasia Giraldo [facility] THYROID STIMULATING 2020-09-05 02:22:00 Alessandra jonas [facility] HORMONE [facility] COMP. METABOLIC PANEL 2020-09-05 02:22:[address] [facility] ([id number]) [facility] CBC WITH DIFF 2020-09-05 02:22:00 Anastasia Giraldo [facility] URINALYSIS 2020-09-05 02:22:00 Anastasia Giraldo [facility] N-TERMINAL PRO-BNP 2020-09-05 02:22:00 Anastasia Giraldo [facility] POCT GLUCOSE (AUTOMATED) 2020-09-05 01:56:00 Doctor Juan Manuel, [facility] NOTICE OF PRIVACY 2020-09-05 01:52:18 Doctor Juan Manuel, [facility] PRACTICES [facility] CONSENT/REFUSAL FOR 2020-09-05 01:51:[address] [facility] DIAGNOSIS AND TREATMENT [facility] CONSENT/REFUSAL FOR 2020-09-04 22:21:[address] [facility] DIAGNOSIS AND TREATMENT [facility] POCT HEMOGLOBIN A1C TEST 2020-09-04 00:00:00 Anatoly Villegas [facility] EXTERNAL PROVIDER RECORDS 2020-08-03 06:01:00 Doctor Zambrano, [facility] XR LUMBAR SPINE 4 VW 2020-05-08 21:19:59 Rashad Costa [facility] XR HIPS 2 VW LEFT 2020-05-08 21:19:59 Rashad Costa [facility] ASSIGNMENT OF BENEFITS 2020-05-08 20:39:58 Doctor Unassigned, [facility] [address] [facility] [place] URINE CULTURE 2020-04-03 20:18:00 Adum, Sisi Montero [place] [facility] GC & CHLAMYDIA AMPLIFIED 2020-04-03 20:18:00 Adum, Sisi Montero General acute hospital GALV ONLY - VAGINAL 2020-04-03 20:18:00 Adum, Sisi Montero [facility] PATHOGENS BY NUCLEIC ACID Medica [facility] TESTING TRICHOMONAS AMPLIFIED 2020-04-03 20:18:00 Adum, Sisi Montero General acute hospital POCT URINALYSIS W/O 2020-04-03 00:00:00 Adum, Sisi Montero [facility] SPECIFIC GRAVITY [facility] POCT HEMOGLOBIN A1C TEST 2020-01-10 00:00:00 Anatoly Villegas [facility] HOSPITAL ADMISSION MISC - 2019-12-10 05:01:00 Doctor Juan Manuel, [facility] MEDICARE PATIENTS RIGHTS [address] [facility] IMPORTANT MESSAGE BI SCREENING MAMMOGRAM 2019-11-01 17:35:[address] [facility] BILATERAL [facility] CONSENT/REFUSAL FOR 2019-11-01 16:33:[address] [facility] DIAGNOSIS AND TREATMENT [address] [facility] ASSIGNMENT OF BENEFITS 2019-11-01 16:33:15 Doctor Juan Manuel, Un [facility] IMMTRAC2 CONSENT 2019-10-11 05:01:00 Doctor Juan Manuel, [facility] Name Medical [place] AGREEMENTS AUTHORIZATIONS 2019-08-30 05:01:00 Doctor Juan Manuel, [facility] AND IRREVOCABLE [address] [facility] [place] ASSIGNMENTS (FORM 2000) POCT GLUCOSE (AUTOMATED) 2019-08-16 13:02:00 Génesis Romano [facility] POCT GLUCOSE (AUTOMATED) 2019-08-16 09:53:00 Génesis Romano [facility] MAGNESIUM 2019-08-16 09:52:00 Izaiah Miles o [facility] BASIC METABOLIC PANEL (NA, 2019-08-16 09:52:00 [facility] [facility] [place], CL, CO2, GLUCOSE, BUN, Medica l Branch CREATININE, CA) CBC WITH DIFFERENTIAL 2019-08-16 09:52:00 Izaiah Miles [facility] POCT GLUCOSE (AUTOMATED) 2019-08-16 07:10:00 Génesis Romano [facility] PO[facility] GLUCOSE (AUTOMATED) 2019-08-16 05:02:00 Génesis Romano Uni [facility] CT HEAD WO CONTRAST 2019-08-16 00:49:18 [facility] PO[facility] GLUCOSE (AUTOMATED) 2019-08-15 22:14:00 Génesis Romano [facility] POCT GLUCOSE (AUTOMATED) 2019-08-15 20:40:00 Génesis Romano Uni [facility] ACTIVATED PARTIAL THRMPLAS 2019-08-15 20:35:00 Izaiah Miles [facility] POCT GLUCOSE (AUTOMATED) 2019-08-15 16:53:00 Génesis Romano Uni [facility] POCT ACT LOW RANGE 2019-08-15 15:35:00 Juan Antonio Capps [facility] POCT ACT LOW RANGE 2019-08-15 15:14:00 Juan Antonio Capps [facility] POCT ACT LOW RANGE 2019-08-15 14:37:00 Juan Antonio Capps [facility] POCT ACT LOW RANGE 2019-08-15 14:20:00 Génesis Romano [facility] MAGNESIUM 2019-08-15 09:53:00 Izaiah Miles o f [facility] BASIC METABOLIC PANEL (NA, 2019-08-15 09:53:00 Izaiah Miles [facility] K, CL, CO2, GLUCOSE, BUN, Medica l Branch CREATININE, CA) CBC WITH DIFFERENTIAL 2019-08-15 09:53:00 Izaiah Miles [facility] ACTIVATED PARTIAL THRMPLAS 2019-08-15 09:53:00 Shanta Spring [facility] POCT GLUCOSE (AUTOMATED) 2019-08-15 09:47:00 Génesis Romano [facility] POCT GLUCOSE (AUTOMATED) 2019-08-15 06:33:00 Génesis Romano [facility] POCT GLUCOSE (AUTOMATED) 2019-08-15 03:08:00 Génesis Romano [facility] BASIC METABOLIC PANEL (NA, 2019-08-15 01:48:00 Izaiah Miles [facility] K, CL, CO2, GLUCOSE, BUN, Medica l Branch CREATININE, CA) ACTIVATED PARTIAL THRMPLAS 2019-08-15 01:48:00 Shanta [facility] POCT GLUCOSE (AUTOMATED) 2019-08-15 01:46:00 Génesis Romano [facility] POCT GLUCOSE (AUTOMATED) 2019-08-14 22:29:00 Génesis Romano [facility] POCT GLUCOSE (AUTOMATED) 2019-08-14 20:42:00 Génesis Romano [facility] ACTIVATED PARTIAL THRMPLAS 2019-08-14 19:14:00 Shanta [facility] POCT GLUCOSE (AUTOMATED) 2019-08-14 16:43:00 Génesis Romano [facility] ECHO ROUTINE W/DOPPLER 2019-08-14 14:10:31 Izaiah Miles [facility] POCT GLUCOSE (AUTOMATED) 2019-08-14 13:50:00 Génesis Romano [facility] GALV ONLY - INFLUENZA A B 2019-08-14 13:42:00 Jean Carlos Vang [facility] RSV PCR [facility] EKG-12 LEAD 2019-08-14 13:11:24 Juan Antonio Capps [facility] acute hospital ACTIVATED PARTIAL THRMPLAS 2019-08-14 10:04:00 Shanta [facility] MAGNESIUM 2019-08-14 10:03:00 Izaiah Miles [facility] BASIC METABOLIC PANEL (NA, 2019-08-14 10:03:00 Izaiah Miles [facility] K, CL, CO2, GLUCOSE, BUN, Medica l Branch CREATININE, CA) CBC WITH DIFFERENTIAL 2019-08-14 10:03:00 Izaiah Miles [facility] POCT GLUCOSE (AUTOMATED) 2019-08-14 01:18:00 Génesis Romano [facility] POCT GLUCOSE (AUTOMATED) 2019-08-13 23:08:00 Génesis Romano [facility] ACTIVATED PARTIAL THRMPLAS 2019-08-13 22:43:00 Shanta Spring [facility] POCT GLUCOSE (AUTOMATED) 2019-08-13 19:28:00 Génesis Romano [facility] CORONARY ANGIOGRAPHY 2019-08-13 16:40:26 Doctor Unassigned, [facility] [address] [facility] TROPONIN I 2019-08-13 13:14:00 Saw [facility] POCT GLUCOSE (AUTOMATED) 2019-08-13 13:12:00 Génesis Romano [facility] XR CHEST 1 VW 2019-08-13 08:08:00 Saw [facility] MAGNESIUM 2019-08-13 [facility]:24[facility] 2019-08-13 05:24:00 Saw [facility] BASIC METABOLIC PANEL (NA, 2019-08-13 05:24:00 Shanta Spring [facility] K, CL, CO2, GLUCOSE, BUN, Medica l Branch CREATININE, CA) CBC WITH DIFFERENTIAL 2019-08-13 05:24:00 Izaiah Miles [facility] GLYCOSYLATED HEMOGLOBIN 2019-08-13 05:24:00 Saw [facility] (A1C) [facility] PROTHROMBIN TIME / INR 2019-08-13 05:24:00 Saw [facility] ACTIVATED PARTIAL THRMPLAS 2019-08-13 05:24:00 [facility] N-TERMINAL PRO-BNP 2019-08-13 05:24:00 Saw [facility] EKG-12 LEAD 2019-08-13 04:39:22 Juan Antonio [facility] EXTERNAL PROVIDER - ADC 2019-08-05 05:01:00 Doctor Darion Zambrano [facility] CARDIOLOGY [address] [facility] NOTICE OF BILLING 2019-02-04 14:40:05 Doctor Juan Manuel, [facility] PRACTICES FOR MEDICARE [address] [facility] PATIENTS NO SHOW OR MISSED 2019-01-04 19:28:18 Doctor Juan Manuel [facility] APPOINTMENT POLICY [address] [facility] Branc h ACKNOWLEDGEMENT REFERRAL- REQUEST/RESPONSE 2018-12-20 05:01:00 Doctor Juan Manuel , [facility] [address] [facility] PATIENT CORRESPONDENCE 2018-12-06 05:01:00 Doctor Juan Manuel, [facility] (LETTERS, USPS [address] [facility] DOCUMENTATION) Plan of Care Planned Activity Planned Date Details Comments Source Future Scheduled 2022 Screening for [facility] Test 00:00:00 malignant neoplasm of Medica l Branch colon (procedure) [code = 254318934] Future Scheduled 2022 Screening for [facility] Test 00:00:00 malignant neoplasm of Medica l Branch colon (procedure) [code = 733006361] Future Scheduled 2021-09-07 Creatinine [facility] Test 00:00:00 measurement Medical Branch (procedure) [code = 61390963] Future Scheduled 2021-09-07 Creatinine [facility] Test 00:00:00 measurement Medical Branch (procedure) [code = 94323456] Future Scheduled 2021-09-05 Calculated low [facility] [place] Test 00:00:00 density lipoprotein Medical Branch cholesterol level (procedure) [code = 017715186] Future Scheduled 2021-09-05 Calculated low [facility] [place] Test 00:00:00 density lipoprotein Medical Branch cholesterol level (procedure) [code = 363068745] Future Scheduled 2021-05-08 Depression screening [facility] [place] Test 00:00:00 (procedure) [code = Medical Branch 714590232] Future Scheduled 2021-05-08 Depression screening [facility] [place] Test 00:00:00 (procedure) [code = Medical Branch 727997542] Future Scheduled 2021-03-07 Hemoglobin A1c [facility] [place] Test 00:00:00 measurement Medical Branch (procedure) [code = 56059613] Future Scheduled 2021-03-07 Hemoglobin A1c [facility] [place] Test 00:00:00 measurement Medical Branch (procedure) [code = 33202527] Future Scheduled 2021-01-[address] [facility] Test 00:00:00 (Season Ended) [code Medical Branch = INFLUENZA VACCINE (Season Ended)] Future Scheduled 2021-01-27 INFLUENZA VACCINE [facility] Test 00:00:00 (Season Ended) [code Medical Branch = INFLUENZA VACCINE (Season Ended)] Future Scheduled 2020-10-31 Screening for [facility] Test 00:00:00 malignant neoplasm of Medica l Branch breast (procedure) [code = 991597470] Future Scheduled 2020-10-31 Screening for [facility] Test 00:00:00 malignant neoplasm of Medica l Branch breast (procedure) [code = 750525902] Future Scheduled 2020-09-25 Screening for [facility] Test 00:00:00 malignant neoplasm of Medica l Branch cervix (procedure) [code = 326017881] Future Scheduled 2020-09-25 Screening for [facility] Test 00:00:00 malignant neoplasm of Medica l Branch cervix (procedure) [code = 662743231] Future Scheduled 2020-05-10 Diabetic foot [facility] Test 00:00:00 examination Medical Branch (regime/therapy) [code = 003330726] Future Scheduled 2020-05-10 Diabetic foot [facility] Test 00:00:00 examination Medical Branch (regime/therapy) [code = 495550763] Future Scheduled 2019-09-01 Microalbumin [facility] Test 00:00:00 measurement, urine, Medical Branch quantitative (procedure) [code = 468331744] Future Scheduled 2019-09-01 Microalbumin [facility] Test 00:00:00 measurement, urine, Medical Branch quantitative (procedure) [code = 851676720] Future Scheduled 1991 DTaP,Tdap,and Td [facility] Test 00:00:00 Vaccines (1 - Tdap) Medical Branch [code = DTaP,Tdap,and Td Vaccines (1 - Tdap)] Future Scheduled 1991 DTaP,Tdap,and Td [facility] Test 00:00:00 Vaccines (1 - Tdap) Medical Branch [code = DTaP,Tdap,and Td Vaccines (1 - Tdap)] Future Scheduled 1990 Hepatitis C screening [facility] [place] Test 00:00:00 (procedure) [code = Medical Branch 798260198] Future Scheduled 1990 Hepatitis C screening [facility] [place] Test 00:00:00 (procedure) [code = Medical Branch 071559022] Future Scheduled 1988 SARS-CoV-2 (COVID-19) [facility] [place] Test 00:00:00 Vaccine (1) [code = Medical Branch SARS-CoV-2 (COVID-19) Vaccine (1)] Future Scheduled 1988 SARS-CoV-2 (COVID-19) [facility] [place] Test 00:00:00 Vaccine (1) [code = Medical Branch SARS-CoV-2 (COVID-19) Vaccine (1)] Future Scheduled 1982 Examination of retina [facility] [place] Test 00:00:00 (procedure) [code = Medical Branch 460985126] Future Scheduled 1982 Examination of retina [facility] [place] Test 00:00:00 (procedure) [code = Medical Branch 334431510] Future Scheduled 1978 PNEUMOCOCCAL 0-64 Univer sity [...] Date/Time Type Type Clinicians Facility Department ID 2021-03-29 Emergency [facility] [id number] Univers 23:28:09 ity of [facility] 2021-03-28 Emergency X [facility] [id number] Univers 11:58:59 ity of [facility] 2021-03-28 Emergency [facility] [id number] Univers 11:58:17 ity of [facility] 2021-03-26 Emergency [facility] [id number] Univers 12:39:58 ity of [facility] 2021-03-25 Inpatient [facility] [id number] Univers 14:40:00 ity of [facility] 2021-07-09 2021-07-09 Outpatient R MARK [facility] [id number] Univers 13:30:00 13:30:00 ANATOLY [id number] ity of [facility] 2021-02-12 2021-02-12 Emergency [facility] [id number] Univers 14:34:00 17:16:00 Fabby Hawkins [id number] ity [id number] [phone] [place] [id number] [place] 2021-02-12 2021-02-12 Office [facility] [id number] Univers 13:04:40 15:13:23 Visit [facility] [id number] it y of [place] [id number] Raffy as Charly?Blea [phone] [address] Medical Office Building 2021-02-12 2021-02-12 Outpatient R BANG [facility] [id number] Univers 13:00:00 13:00:00 ALDA [id number] ity [facility] 2021-02-12 2021-02-12 [facility] [id number] Univers 13:00:00 13:00:00 [facility] ity [facility] 2021-01-19 2021-01-19 Transition Matthew Daniel [id number] Univers 00:00:00 00:00:00 of Veronika Mata [id number] [id number] [phone] [facility] [address] [place] 2021-01-15 2021-01-17 [facility] [id number] Univers 15:17:00 13:06:00 Encounter Celso Hawkins [id number] [id number] [phone] [facility] 081 [place] 2021-01-15 2021-01-15 Office [facility] [id number] Univers 14:09:25 15:11:21 Visit Lily Hawkins [id number] [place]y [id number] [phone] Hi dical nal 059 [facility] 2021-01-15 2021-01-15 Outpatient [facility] [id number] Univers 14:40:00 14:40:00 LILY [id number] it o [facility] 2021-01-15 2021-01-15 Outpatient [facility] [id number] Univers 14:40:00 14:40:00 [facility] 2021-01-01 2021-01-01 Office [facility] [id number] Univers 11:28:43 12:58:14 Visit Anatoly Hawkins [id number] i ty [id number] [phone] Hi sonu nal 220 [facility] 2021-01-01 2021-01-01 Outpatient R [facility] [id number] Univers 11:30:00 11:30:00 ANATOLY [id number] [facility] 2021-01-01 2021-01-01 Outpatient R [facility] [id number] Univers 11:30:00 11:30:00 ANATOLY [facility] [facility] 2020-12-18 2020-12-18 Refleticia [facility] 1.2.840.114 [id number] Univers 00:00:00 00:00:00 Wondiful A [facility] 350.1.13.10 ity of [place] 4.2.7.2.686 Raffy as Professio [phone] Hi dical nal [address] One 2020-12-02 2020-12-02 Out[facility] [id number] -20 Univers 16:00:00 16:00:00 LILY [id number] ity o f [facility] 2020-12-02 2020-12-02 Outpatient [facility] [id number] Univers 16:00:00 16:00:00 LILY ity o f [facility] 2020-11-30 2020-12-01 [facility] Lily Franks 1.2.840.114 [id number] Univers 17:33:00 15:15:00 Encounter MarquiseRadavey Zhuy 350.1.1 3.10 [facility] 4.2.7.2 .686 [facility] [phone] [address] [address] 2020-12-01 2020-12-01 Outpatient [facility] [id number] Q-20 Univers 14:00:00 14:00:00 WONDIFUL [id number] ity o f [facility] 2020-12-01 2020-12-01 Outpatient [facility] [id number] Univers 14:00:00 14:00:00 WONDIFUL ity o f [facility] 2020-11-30 2020-11-30 Outpatient [facility] [id number] -20 Univers 08:00:00 08:00:00 [id number] ity [facility] 2020-11-30 2020-11-30 Outpatient R [facility] [id number] Univers 08:00:00 08:00:00 ity of [facility] 2020-11-30 2020-11-30 [facility] Diana [place] 1.2.840.114 [id number] Univers 07:45:00 07:59:00 Encounter Brown A Aida 350.1.13.10 ity [facility] 4.2.7.2.686 Raffy as [phone] [place] [address] [address] 2020-11-27 2020-11-27 Outpatient Sonya [facility]UN[facility] [id number] 5Q-20 Univers 14:00:00 14:00:00 ANATOLY [id number] ity [facility] 2020-11-27 2020-11-27 Outpatient Sonya [facility] [id number] Univers 14:00:00 14:00:00 ANATOLY turner of [facility] 2020-11-25 2020-11-25 Telephone Gregory Diana 1.2.265.863 [id number] 4088 Univers 00:00:00 00:00:00 Lily Zhuy 350.1.13.10 i ty of [facility] 4.2.7.2.686 Raffy as [phone] [address] 2020-11-25 2020-11-25 Telephone [facility] 1.2.011.640 [id number] 1818 Univers 00:00:00 00:00:00 Patient [place] 350.1.13.10 i ty of Does Not [place] 4.2.7.2.686 Raffy as Have A Professio [phone] Hi dical nal 843 [facility] 2020-11-16 2020-11-16 Telephone GregoryKateyDiana 1.2.339.158 1033 3070 Univers 00:00:00 00:00:00 Salvadoralexmartita Zhuy 350.1.13.10 i ty of [facility] 4.2.7.2.686 Raffy as [phone] [address] 2020-11-13 2020-11-13 Office [facility] 1.2.840.114 [id number] Univers 14:46:41 15:21:27 Visit Lily Hawkins 350.1.13.10 ity of [place] Profess[place] [phone] Hi dical nal 059 [facility] 2020-11-13 2020-11-13 Outpatient R GREGORY [facility] [id number] Univers 14:00:00 14:00:00 LILY turner o f [facility] 2020-11-13 2020-11-13 Outpatient R IGOR [facility] [id number] Q-20 Univers 13:00:00 13:00:00 WONDIFUL [id number] ity o f [facility] 2020-11-12 2020-11-12 Telephone [facility] 1.2.840.114 [id number] Univers 00:00:00 00:00:00 [facility] 350.1.13.10 ity of [place] 4.2.7.2.686 Raffy as Professio [phone] Hi dicvalor health 044 [facility] One 2020-10-28 2020-10-28 Pre Visit Igor CTMINDY 1.2.840.114 [id number] Univers 00:00:00 00:00:00 Outreach [facility] 350.1.13.10 ity of [place] 4.2.7.2.686 Raffy as Professio [phone] [facility] 044 [facility] 2020-10-07 2020-10-07 Office Vance [facility] 1.2.840.114 [id number] Univers 13:57:34 15:30:50 [facility] [place] 350.1.13.10 i ty of [place] [phone] [facility] 220 [facility] 2020-10-07 2020-10-07 Outpatient R VANCE [facility] [id number] -20 Univers 14:00:00 14:00:00 [facility] [id number] [facility] 2020-10-07 2020-10-07 Outpatient R VANCE [facility] [id number] 054 Univers 14:00:00 14:00:00 [facility] 2020-10-06 2020-10-06 Outpatient R VANCE [facility] [id number] -20 Univers 14:30:00 14:30:00 [facility] [id number] [facility] 2020-10-06 2020-10-06 Outpatient R [facility] [id number] Univers 14:30:00 14:30:00 [facility] 2020-10-01 2020-10-01 Office [place], [facility] 1.2.840.114 [id number] 092 15:08:27 16:09:31 Visit [facility] 350.1.13.10 [place] 4.2.7.2.686 Professio [phone] [address] One 2020-10-01 2020-10-01 Office Igor, CTMINDY 1.2.840.114 [id number] 092 Univers 15:08:27 16:09:31 Visit [facility] 350.1.13.10 ity of [place] 4.2.7.2.686 Raffy as Professio [phone] [address] Office Building One 2020-10-01 2020-10-01 Outpatient R IGOR CTMINDY [facility] [id number] Univers 15:00:00 15:00:00 WONDIFUL ity o f [facility] 2020-09-26 2020-09-26 Refleticia CostaREH[facility]IL[facility] 1.2.840.114 [id number] Univers 00:00:00 00:00:00 [facility] 350.1.13.10 ity of [place] 4.2.7.2.686 Raffy as Professio [phone] [address] Office [facility] One 2020-09-24 2020-09-24 Refleticia CostaREHABIL[facility]ATION [facility] 1.2.840.114 [id number] Univers 00:00:00 00:00:00 [facility] 350.1.13.10 ity of [place] 4.2.7.2.686 Raffy as Professio [phone] [address] Office [facility] One 2020-09-11 2020-09-11 Refleticia CostaREHABILITATION [facility] 1.2.840.114 [id number] Univers 00:00:00 00:00:00 [facility] 350.1.13.10 ity of [place] 4.2.7.2.686 Raffy as Professio [phone] [address] Office Building One 2020-09-09 2020-09-09 Transition Matthew Gonzalez 1.2.840.114 [id number] Univers 00:00:00 00:00:00 of Care Garcia A Mata 350.1.13.10 ity of [place] [phone] [address] 2020-09-04 2020-09-07 [facility] Ronnie Murry [facility] 1.2.8 40.114 [id number] Univers 20:58:00 18:15:00 Encounter Yarima, Wakili S [place] 350.1.13.1 0 ity of Elyse Aparicio [place] 4.2.7.2.686 [facility] [phone] Medical [address] 2020-09-04 2020-09-04 Office [facility]RE[facility] 1.2.764.615 [id number] 7173 Univers 16:01:54 17:11:05 Visit Anatoly Hawkins 350.1.13.10 i ty of [place] 4.2.7.2.686 [place] essio [phone] Hi dical nal 220 [facility] 2020-09-04 2020-09-04 Outpatient R [facility]UN[facility] 30191 5Q-20 Univers 16:00:00 16:00:00 [facility]Y [id number] [facility] 2020-09-04 2020-09-04 Outpatient R [facility]UN[facility] [id number] Univers 16:00:00 16:00:00 ANATOLY [facility] 2020-09-04 2020-09-04 Outpatient R [facility]UN[facility] [id number] Univers 16:00:00 16:00:00 [facility] 2020-09-04 2020-09-04 Orders Doctor VAISHALI 1.2.840.114 [id number] Univers 00:00:00 00:00:00 Only Unassigned, AIDA 350.1.13.[address] [facility] 4.2.7.2.686 Raffy as [phone] [place] [address] [address] 2020-08-13 2020-08-13 Patient [facility]RE[facility] 1.2.840.114 [id number] Univers 00:00:00 00:00:00 Outreach George PRIMARY 350.1.13.10 i ty of Art [facility] 4.2.7.2.[place] [phone] Hi dical [address] 2020-08-04 2020-08-04 Refill MarkRE[facility]ABILITATION [facility] 1.2.208.668 [id number] 7343 Univers 00:00:00 00:00:00 Anatoly Hawkins 350.1.13.10 i ty of [place].7.2.[place] [phone] [facility] 220 [facility] 2020-08-04 2020-08-04 Amy Costa CTMINDY 1.2.840.114 [id number] Univers 00:00:00 00:00:00 [facility] 350.1.13.10 ity of [place] 4.2.7.2.686 Raffy as Professio [phone] [facility] 044 [facility] One 2020-08-03 2020-08-03 Orders Doctor VAISHALI 1.2.840.114 [id number] Univers 00:00:00 00:00:00 Only Unassigned, AIDA 350.1.13.[address] [facility] 4.2.7.2.686 Raffy as [phone] [address] 2020-07-16 2020-07-16 Outpatient Sonya COSTA [facility] [id number] Univers 11:15:00 11:15:00 WONDIFUL ity o f [facility] 2020-06-22 2020-06-22 Amy CostaREHABILITATION [facility] 1.2.840.114 [id number] Univers 00:00:00 00:00:00 [facility] 350.1.13.10 ity of [place] 4.2.7.2.686 Raffy as Professio [phone] [facility] 044 [facility] One 2020-06-19 2020-06-19 Outpatient R IGOR [facility] [id number] Q-20 Univers 14:00:00 14:00:00 WONDIFUL [id number] ity o f [facility] 2020-06-08 2020-06-08 Amy CostaREHABILITATION [facility] 1.2.840.114 [id number] Univers 00:00:00 00:00:00 [facility] 350.1.13.10 ity of [place] 4.2.7.2.686 Raffy as Professio [phone] [facility] 044 [facility] One 2020-06-05 2020-06-05 Amy CostaREHABILITATION [facility] 1.2.840.114 [id number] Univers 00:00:00 00:00:00 [facility] 350.1.13.10 ity of [place] 4.2.7.2.686 Raffy as Professio [phone] [address] 2020-05-28 2020-05-28 Outpatient R IGOR [facility] [id number] Q-20 Univers 15:00:00 15:00:00 WONDIFUL [id number] ity o f [facility] 2020-05-28 2020-05-28 Outpatient [facility] [id number] Univers 15:00:00 15:00:00 WONDIFUL ity o f [facility] 2020-05-19 2020-05-19 [facility] I[facility]RE[facility]IL[facility] 1.2.840.114 [id number] Univers 00:00:00 00:00:00 [facility] 350.1.13.10 ity of [place] 4.2.7.2.686 Raffy as Professio [phone] [address] 2020-05-14 2020-05-14 [facility] 1.2.840.114 [id number] Univers 00:00:00 00:00:00 [facility] 350.1.13.10 ity of [place] 4.2.7.2.686 Raffy as Professio [phone] [address] 2020-05-13 2020-05-13 [facility] 1.2.840.114 [id number] Univers 00:00:00 00:00:00 Management [facility] 350.1.13.10 ity of [place] 4.2.7.2.686 Raffy as Professio [phone] [address] Office [facility] 2020-05-08 2020-05-08 [facility] 1.2.982.731 [id number] 0106 Univers 14:47:36 23:59:00 Encounter Wondiful A [place] 350.1.13.10 ity of [place].7.2.686 [place] [phone] [facility] [address] 2020-05-08 2020-05-08 Outpatient R MARK [facility] [id number] 5Q-20 Univers 16:30:00 16:30:00 ANATOLY [id number] ity of [facility] 2020-05-08 2020-05-08 Outpatient R MARK [facility] [id number] Univers 16:30:00 16:30:00 ANATOLY ity of [facility] 2020-05-08 2020-05-08 Office [facility]RE[facility] 1.2.840.114 [id number] Univers 13:10:21 13:58:56 Visit Wonmeghaful A [facility] 350.1.13.10 ity of [place] 4.2.7.2.686 Raffy as Professio [phone] Hi dical nal [address] Office [facility] One 2020-05-08 2020-05-08 Orders Doctor VAISHALI 1.2.840.114 [id number] Univers 00:00:00 00:00:00 Only Unassigned, AIDA 350.1.13.10 [facility]y [facility] [place] [facility] 4.2.7.2.686 Raffy as [phone] [address] 2020-05-01 2020-05-01 Outpatient R IGOR [facility] [id number] Q-20 Univers 10:30:00 10:30:00 WONDIFUL ity o [facility] 2020-05-01 2020-05-01 Outpatient [facility] [id number] Univers 10:30:00 10:30:00 WONDIFUL ity o f [facility] 2020-04-17 2020-04-17 Telemedici [facility] 1..840.114 [id number] Univers 11:00:00 11:30:00 ne Visit Sisi Hawkins 350.1.13.10 ity of [place].2.[place] [phone] Hi dical nal 134 [facility] 2020-04-17 2020-04-17 Outpatient R [facility]UN[facility] [id number] -20 Univers 11:00:00 11:00:00 SISI ity of [facility] 2020-04-17 2020-04-17 Outpatient R AGATHAALEJANDROUNIVERSITY [facility] [id number] Univers 11:00:00 11:00:00 SISI ity of [facility] 2020-04-14 2020-04-14 Refleticia [facility]ienvilleRE[facility] 1.2.840.114 [id number] Univers 00:00:00 00:00:00 [facility] 350.1.13.10 ity of [place] 4.2.7.2.686 Raffy as Professio [phone] Hi dical [facility] [address] [place] Office [facility] One 2020-04-13 2020-04-13 Refleticia MarkREHABILITATION [facility] 1.2.810.970 [id number] 7425 Univers 00:00:00 00:00:00 Anatoly Hawkins 350.1.13.10 i ty of [place].7.2.[place] [phone] Hi dical nal 220 [facility] 2020-04-08 2020-04-08 Telephone [facility] 1.2.263.216 [id number] 5050 Univers 00:00:00 00:00:00 Sisi Hawkins 350.1.13.10 ity of [place] 4.2.7.2.686 [place] [phone] Hi dical nal 134 [facility] 2020-04-07 2020-04-07 Case [facility] 1.2.840.114 [id number] Univers 00:00:00 00:00:00 Management Sisi Hawkins 350.1.13.10 ity of [place] 4.2.7.2.686 [place] [phone] Hi dical nal 134 [facility] 2020-04-03 2020-04-03 Office [facility] 1.2.840.114 [id number] Univers 13:15:01 14:30:02 Visit Sisi Hawkins 350.1.13.10 ity of [place] 4[place]2.7.2.[place] [phone] Hi dical nal [address] [place] [address] 2020-04-03 2020-04-03 Outpatient R [facility] [id number] Univers 13:30:00 13:30:00 SISI yue [facility] 2020-04-03 2020-04-03 Outpatient R [facility] [id number] -20 Univers 10:30:00 10:30:00 SISI [id number] ity [facility] 2020-04-03 2020-04-03 Outpatient R SHILA [facility] [id number] Univers 10:30:00 10:30:00 ISSI ity [facility] 2020-04-01 2020-04-01 Telephone Serena Garsia [facility] 1.2.840.114 [id number] Univers 00:00:00 00:00:00 Cam [place] 350.1.13.10 i ty of [place].7.2.[place] Profess[place] [phone] [facility] 134 [facility] 2020-03-20 2020-03-20 Refleticia CostaREHABILITATION [facility] 1.2.840.114 [id number] Univers 00:00:00 00:00:00 [facility] 350.1.13.10 ity of [place] 4.2.7.2.686 Raffy as Professio [phone] Hi dical nal 044 [facility] 2020-03-09 2020-03-09 [facility]RE[facility] 1.2.840.114 [id number] Univers 00:00:00 00:00:00 [facility] 350.1.13.10 ity of [place] 4.2.7.2.686 Raffy as Professio [phone] Hi dical nal [address] [place] Office [facility] One 2020-02-17 2020-02-17 Telephone [facility]RE[facility] 1.2.840.114 [id number] Univers 00:00:00 00:00:00 [facility] 350.1.13.10 ity of [place] 4.2.7.2.686 Raffy as Professio [phone] Hi dical nal [address] [place] [address] Office [facility] One 2020-02-17 2020-02-17 Telephone [facility]RE[facility] 1.2.840.114 [id number] Univers 00:00:00 00:00:00 [facility] 350.1.13.10 ity of [place] 4.2.7.2.686 Raffy as Professio [phone] Hi dical nal [address] [place] Office [facility] 2020-01-13 2020-01-13 Refleticia Costa [facility] 1.2.840.114 [id number] Univers 00:00:00 00:00:00 W[facility] A Health 350.1.13.10 ity of [place] 4.2.7.2.686 Raffy as Professio [phone] Hi dical nal [address] [place] Office [facility] 2020-01-11 2020-01-11 Sack Filler 1, Adc Lab [facility] 1.2.840.114 [id number] Univers 10:55:34 11:10:34 Visit Anatoly Villegas 350.1.13.10 ity of [place] 4.2.7.2.686 [place] [phone] [facility] [address] 2020-01-11 2020-01-11 Outpatient R [facility] [id number] -20 Univers 11:00:00 11:00:00 [id number] ity [facility] 2020-01-11 2020-01-11 Outpatient R [facility] [id number] Univers 11:00:00 11:00:00 ity of [facility] 2020-01-10 2020-01-10 Office [facility]RE[facility] 1.2.744.175 [id number] Univers 16:40:13 17:43:53 Visit Anatoly Hawkins 350.1.13.10 i ty of [place] 4.2.7.2.[place] [phone] Hi dical nal 220 [facility] 2020-01-10 2020-01-10 Outpatient R [facility] [id number] 5Q-20 Univers 16:30:00 16:30:00 [facility] [id number] [facility] 2020-01-10 2020-01-10 Outpatient R [facility] [id number] Univers 16:30:00 16:30:00 ANATOLY [facility] 2019-12-10 2019-12-10 Orders Doctor TOM 1.2.840.114 [id number] Univers 00:00:00 00:00:00 Only Unassigned, AIDA 350.1.13.[address] [facility] 4.2.7.2.686 Raffy as [phone] [facility] [address] 2019-12-10 2019-12-10 Telephone [facility]RE[facility] 1.2.840.114 [id number] Univers 00:00:00 00:00:00 Anatoly Hawkins 350.1.13.10 i ty of [place].2.7.2.[place] Profess[place] [phone] Hi dicvalor health 220 [facility] 2019-12-05 2019-12-05 Refill [facility]RE[facility] 1.2.774.254 [id number] [id number] Univers 00:00:00 00:00:00 Anatoly Hawkins 350.1.13.10 i ty of [place].2.[place] [phone] [facility] 220 [facility] 2019-11-06 2019-11-06 Outpatient R [facility]ORYUN[facility] [id number] -20 Univers 15:40:00 15:40:00 LILY [id number] ity o [facility] 2019-11-06 2019-11-06 Outpatient Sonya FR[facility]KSUNIVERS[facility] [id number] Univers 15:40:00 15:40:00 LILY ity o [facility] 2019-11-03 2019-11-03 [facility]RE[facility] 1.2.840.114 [id number] Univers 00:00:00 00:00:00 Wondiful A [facility] 350.1.13.10 ity of [place] 4.2.7.2.686 Raffy as Professio [phone] [facility] [address] Building One 2019-11-01 2019-11-01 Outpatient R KILO [facility] [id number] Univers 11:35:42 23:59:00 ERNST ity [facility] 2019-11-01 2019-11-01 [facility]RE[facility] 1.2.840.114 [id number] Univers 11:35:00 23:59:00 Encounter Ernst Shruthi 350.1.13.10 ity of [place] 4[place]2.7.2.[place] [phone] [facility] [address] 2019-11-01 2019-11-01 Outpatient R [facility] [id number] 5Q-20 Univers 11:40:00 11:40:00 ERNST [id number] [facility] 2019-11-01 2019-11-01 Orders Doctor VAISHALI 1.2.840.114 [id number] Univers 00:00:00 00:00:00 Only Unassigned, AIDA 350.1.13.[address] [facility] 4.2.7.2.686 Raffy as [phone] [address] 2019-10-25 2019-10-25 Outpatient R [facility] [id number] 5Q-20 Univers 00:00:00 00:00:00 ERNST [id number] [facility] 2019-10-11 2019-10-11 Office [facility]RE[facility] 1.2.076.116 [id number] Univers 14:59:15 16:12:30 Visit Ernst Hawkins 350.1.13.10 i ty of [place].2.[place] Profess[place] [phone] Hi dic[address] 2019-10-11 2019-10-11 Outpatient [facility] [id number] 5Q-20 Univers 15:00:00 15:00:00 ERNST [id number] [facility] 2019-10-11 2019-10-11 Outpatient [facility] [id number] Univers 15:00:00 15:00:00 [facility] 2019-10-11 2019-10-11 Orders Doctor VAISHALI 1.2.840.114 [id number] Univers 00:00:00 00:00:00 Only Unassigned, AIDA 350.1.13.10 ity of [facility] 4.2.7.2.686 Raffy as [phone] [address] 2019-10-07 2019-10-07 Outpatient R [facility] [id number] Univers 14:00:00 14:00:00 [facility] 2019-09-30 2019-09-30 Amy VillegasRE[facility] 1.2.146.125 [id number] Univers 00:00:00 00:00:00 Anatoly Hawkins 350.1.13.10 i ty of [place] [phone] Hi dical nal 220 [facility] 2019-09-20 2019-09-20 Outpatient R MARK [facility] [id number] Univers 16:30:00 16:30:00 ANATOLY ity [facility] 2019-09-20 2019-09-20 Telemedici MarkRE[facility]ABIL[facility] 1.2.840.114 [id number] Univers 09:52:35 10:22:35 ne Visit Anatoly H Shruthi 350.1.13.10 ity of [place].2.[place] [phone] Hi dical nal 220 [facility] 2019-08-30 2019-08-30 Sack Filler 2, Adc Lab [facility] 1.2.840.114 [id number] Univers 09:08:00 09:23:00 Visit Lily Franks 350.1.13.10 [id number] [phone] Hi dical nal 353 [facility] [place] 2019-08-30 2019-08-30 Outpatient R [facility] [id number] Univers 09:15:00 09:15:00 [id number] ity of [facility] 2019-08-30 2019-08-30 Outpatient R GREGORY [facility] [id number] Univers 09:15:00 09:15:00 LILY turner o f [facility] 2019-08-30 2019-08-30 Orders Doctor TOM 1.2.840.114 [id number] Univers 00:00:00 00:00:00 Only Unassigned, AIDA 350.1.13.[address] [facility] 4.2.7.2.686 Raffy as [phone] [address] 2019-08-22 2019-08-22 Outpatient R IGOR [facility] [id number] Univers 14:00:00 14:00:00 WONDIFUL [id number] ity o f [facility] 2019-08-22 2019-08-22 Outpatient R IGOR [facility] [id number] Univers 14:00:00 14:00:00 WONDIFUL ity o f [facility] 2019-08-22 2019-08-22 Telemedici [facility] 1.2.840.114 [id number] Univers 09:19:01 09:49:01 ne Visit Wondiful [facility] [id number] ity of [place] [id number] Raffy as Professio [phone] [facility] [address] [facility] 2019-08-22 2019-08-22 Transition Matthew Chávez 1.2.840.114 [id number] Univers 00:00:00 00:00:00 of Care Jessica Mata 350.1.13.10 [id number] [phone] [address] 2019-08-20 2019-08-20 Transition David Chávezjoshua 1.2.840.114 [id number] Univers 00:00:00 00:00:00 of Care Jessica Mata [id number] [phone] [address] 2019-08-19 2019-08-19 Telephone Igor [facility] 1.2.840.114 [id number] Univers 00:00:00 00:00:00 Wondiful [facility] [id number] ity of [place] [id number] [place] as Professio [phone] [address] Office [facility] 2019-08-12 2019-08-16 [facility] Health Juan Antonio Diana 1.2.840.114 [id number] Univers 22:36:00 12:57:00 Encounter Génesis Parra 350.1.13.10 ity of [facility] 4.2.7.2.686 Raffy as [phone] [facility] [address] [place] 2019-08-16 2019-08-16 Outpatient R [facility] [id number] Univers 10:00:00 10:00:00 ity of [facility] 2019-08-16 2019-08-16 Outpatient R [facility] [id number] Univers 10:00:00 10:00:00 ity of [facility] 2019-08-12 2019-08-12 Telephone [facility] [id number] Univers 00:00:00 00:00:00 Lily [place] 350.1.13.10 [place] [phone] [address] 2019-08-09 2019-08-09 Telephone Diana Franks [id number] Univers 00:00:00 00:00:00 [place] 350.1.13.10 i ty of Hospital 4.2.7.2.686 Raffy as [phone] [address] 2019-08-07 2019-08-07 Telephone Diana Franks [id number] Univers 00:00:00 00:00:00 Qiaalexmartita Aida 350.1.13.10 i ty of Hospital 4.2.7.2.686 Raffy as [phone] [address] 2019-08-05 2019-08-06 Office [facility] 1.2.840.114 [id number] Univers 10:54:42 21:31:12 Visit Lily Hawkins 350.1.13.10 [place] [phone] [address] 2019-08-05 2019-08-05 [facility] [id number] Univers 11:20:00 11:20:00 LILY roy o f [facility] 2019-08-05 2019-08-05 Orders Doctor VAISHALI 1.2.840.114 [id number] Univers 00:00:00 00:00:00 Only Unassigned, AIDA 350.1.13.[address] [facility] 4.2.7.2.686 Raffy as [phone] [address] 2019-02-04 2019-02-04 Office [facility] 1.2.840.114 [id number] Univers 09:40:44 10:41:11 Visit Lily Hawkins 350.1.13.10 ity of [place] [phone] Hi dical nal 059 [facility] 2019-02-04 2019-02-04 Orders Doctor VAISHALI 1.2.840.114 [id number] Univers 00:00:00 00:00:00 Only Unassigned, AIDA 350.1.13.[address] [facility] 4.2.7.2.686 Raffy as [phone] [address] 2019-01-04 2019-01-04 Office Mark [facility] [id number] Univers 14:30:15 15:51:35 Visit Anatoly Rodriguez Shruthi 350.1.13.10 i ty [place] [phone] Hi dical nal 220 [facility] 2019-01-04 2019-01-04 Orders Doctor VAISHALI 1.2.840.114 [id number] Univers 00:00:00 00:00:00 Only Unassigned, AIDA 350.1.13.[address] [facility] 4.2.7.2.686 Raffy as [phone] [address] 2018-12-20 2018-12-20 Orders Doctor VAISHALI 1.2.840.114 [id number] Univers 00:00:00 00:00:00 Only Unassigned, AIDA 350.1.13.[address] [facility] 4.2.7.2.686 Raffy as [phone] [address] 2018-12-06 2018-12-06 Orders Doctor VAISHALI 1.2.840.114 [id number] Univers 00:00:00 00:00:00 Only Unassigned, AIDA 350.1.13.[address] [facility] 4.2.7.2.686 Raffy as [phone] [address] 2018-06-27 2018-06-27 [facility] [id number] [facility] [address] 11:57:00 11:57:00 t [facility] Medicine Outpati ent Clinics 2018-06-15 2018-06-15 [facility] [id number] 16:24:00 16:24:00 t [employer] [facility] Outpati ent Clinics 2018-06-13 2018-06-13 [facility] [id number] 13:30:00 13:30:00 [employer] [facility] Outpati ent Clinics 2017-12-12 2017-12-12 [facility] [id number] 13:22:00 13:22:00 [facility] Outpati ent Clinics 2017-11-20 2017-11-20 [facility] [id number] 10:30:00 10:30:00 [employer] [facility] Outpati ent Clinics 2017-11-02 2017-11-02 [facility] [id number] 15:15:00 15:15:00 [facility] [employer] [facility] ent Clinics Results Test Description Test Time Test Comments Results Result Comments Source POCT GLUCOSE (AUTOMATED) 2021-02-12 21:30:54 Test Item Value Reference Range Interpretation Comme nts POCT GLU (test code = 0789896462) 441 mg/dL 70-110 H Lab Interpretation (test code = 83878-2) Abnormal [facility] GLUCOSE (AUTOMATED)2021-02-12 21:30:54 Test Item Value Reference Range Interpretation Comments POCT GLU (test code = 3871821081) 441 mg/dL 70-110 H Lab Interpretation (test code = Abnormal 43052-8) [facility] METABOLIC PANEL (NA, K, CL, CO2, GLUCOSE, BUN, CREATININE, CA)2021-02-12 21:22:44 Test Item Value Reference Range Interpretation Comments NA (test code = 128 mmol/L 135-145 L 0012353516) K (test code = 4.3 mmol/L 3.5-5.0 5093094934) CL (test code = 99 mmol/L 98-108 8140740971) CO2 TOTAL (test code = 19 mmol/L 23-31 L 9032170260) AGAP (test code = 2-16 0073434221) BUN (test code = 13 mg/dL 7-23 9732696612) GLUCOSE (test code = 522 mg/dL 70-110 6394990346) CREATININE (test code = 0.62 mg/dL 0.50-1.04 4500000024) CALCIUM (test code = 8.2 mg/dL 8.6-10.6 L 4713760538) eGFR (test code = mL/min/1.73m2 7661596832) NISHA (test code = NISHA) Association of Glomerular Filtration Rate (GFR) and Staging of Kidney Disease* + --+ --+ ------+| GFR (mL/min/1.73 m2) ?| With Kidney Damage ?| ?Without Kidney Damage+ --------+ --------+ +| ?>90 ?| ?Stage one ?| ? Normal ?+ ---+ ---+ -------+| ?60-89 ?| ?Stage two ?| ? Decreased GFR ? + --+ --+ ------+| ?30-59 ?| ?Stage three ?| ? Stage three ? + --+ --+ ------+| ?15-29 ?| ?Stage four ? | ? Stage four ?+ ---+ ---+ -------+| ?<15 (or dialysis) ? ?| ?Stage five ? | ? Stage five ?+ ---+ ---+ -------+ *Each stage assumes the associated GFR level has been in effect for at least three months. ?Stages 1 to 5, with or without kidney disease, indicate chronic kidney disease. Notes: Determination of stages one and two (with eGFR >59mL/min/1.73 m2) requires estimation of kidney damage for at least three months as defined by structural or functional abnormalities of the kidney, manifested by either:Pathological abnormalities or Markers of kidney damage (including abnormalities in the composition of the blood or urine or abnormalities in imaging tests). Lab Interpretation Abnormal (test code = 38490-4) [facility] METABOLIC PANEL (NA, K, CL, CO2, GLUCOSE, BUN, CREATININE, CA)2021-02-12 21:22:44 Test Item Value Reference Range Interpretation Comments NA (test code = 128 mmol/L 135-145 L 4927931069) K (test code = 4.3 mmol/L 3.5-5.0 3463254840) CL (test code = 99 mmol/L 98-108 2564152154) CO2 TOTAL (test code = 19 mmol/L 23-31 L 2800238847) AGAP (test code = 2-16 0633010000) BUN (test code = 13 mg/dL 7-23 1497141053) GLUCOSE (test code = 522 mg/dL 70-110 HH 7457556300) CREATININE (test code = 0.62 mg/dL 0.50-1.04 4214142744) CALCIUM (test code = 8.2 mg/dL 8.6-10.6 L 5008833689) eGFR (test code = mL/min/1.73m2 3294077869) NISHA (test code = NISHA) Association of Glomerular Filtration Rate (GFR) and Staging of Kidney Disease* + --+ --+ ------+| GFR (mL/min/1.73 m2) ?| With Kidney Damage ?| ?Without Kidney Damage+ --------+ --------+ +| ?>90 ?| ?Stage one ?| ? Normal ?+ ---+ ---+ -------+| ?60-89 ?| ?Stage two ?| ? Decreased GFR ? + --+ --+ ------+| ?30-59 ?| ?Stage three ?| ? Stage three ? + --+ --+ ------+| ?15-29 ?| ?Stage four ? | ? Stage four ?+ ---+ ---+ -------+| ?<15 (or dialysis) ? ?| ?Stage five ? | ? Stage five ?+ ---+ ---+ -------+ *Each stage assumes the associated GFR level has been in effect for at least three months. ?Stages 1 to 5, with or without kidney disease, indicate chronic kidney disease. Notes: Determination of stages one and two (with eGFR >59mL/min/1.73 m2) requires estimation of kidney damage for at least three months as defined by structural or functional abnormalities of the kidney, manifested by either:Pathological abnormalities or Markers of kidney damage (including abnormalities in the composition of the blood or urine or abnormalities in imaging tests). Lab Interpretation Abnormal (test code = 88899-4) [facility] WITH [id number] 20:50:11 Test Item Value Reference Range Interpretation Comments WBC (test code = See_Comment [Automated message] 6690-2) The system [employer] generated this result transmitted ref erence range: 4.30 - 1 1.10 10*3/?L. The re ference range was not u sed to interpret this result as normal/abnor mal. RBC (test code = See_Comment [Automated message] 789-8) The system [employer] generated this result transmitted ref erence range: 3.93 - 5 .25 10*6/?L. The re ference range was not u sed to interpret this result as normal/abnor mal. HGB (test code = 14.3 g/dL 11.6-15.0 718-7) HCT (test code = 41.7 % 35.7-45.2 4544-3) MCV (test code = 87.2 fL 80.6-95.5 787-2) MCH (test code = 29.9 pg 25.9-32.8 785-6) MCHC (test code = 34.3 g/dL 31.6-35.1 786-4) RDW-SD (test code 40.4 fL 39.0-49.9 = 71200-7) RDW-CV (test code 12.7 % 12.0-15.5 = 788-0) PLT (test code = See_Comment [Automated message] 777-3) The system [employer] generated this result transmitted ref erence range: 166 - 35 8 10*3/?L. The re ference range was not u sed to interpret this result as normal/abnor mal. MPV (test code = 10.3 fL 9.5-12.9 61100-4) NRBC/100 WBC (test See_Comment [Automat ed message] code = 0630781654) The syste [employer] which generated this result transmitted ref erence range: 0.0 - 10 .0 /100 WBCs. The refer ence range was not u sed to interpret this result as normal/abnor mal. NRBC x10^3 (test <0.01 See_Comment [Automated message] code = 9806522334) The syste m which generated this result transmitted ref erence range: 10*3/?L. The reference range was not used to interpr et this result as normal/abnormal . GRAN MAT (NEUT) % 68.0 % (test code = 770-8) IMM GRAN % (test 0.30 % code = 5621993469) LYMPH % (test code 23.0 % = 736-9) MONO % (test code 5.0 % = 5905-5) EOS % (test code = 3.0 % 713-8) BASO % (test code 0.7 % = 706-2) GRAN MAT 6.52 10*3/uL 1.88-7.09 x10^3(ANC) (test code = 8049165797) IMM GRAN x10^3 0.03 10*3/uL 0.00-0.06 (test code = 7899210027) LYMPH x10^3 (test 2.21 10*3/uL 1.32-3.29 code = 731-0) MONO x10^3 (test 0.48 10*3/uL 0.33-0.92 code = 742-7) EOS x10^3 (test 0.29 10*3/uL 0.03-0.39 code = 711-2) BASO x10^3 (test 0.07 10*3/uL 0.01-0.07 code = 704-7) [facility] WITH [id number] 20:50:11 Test Item Value Reference Range Interpretation Comments WBC (test code = See_Comment [Automated message] 5990-2) The system [employer] generated this result transmitted ref erence range: 4.30 - 1 1.10 10*3/?L. The re ference range was not u sed to interpret this result as normal/abnor mal. RBC (test code = See_Comment [Automated message] 279-8) The system [employer] generated this result transmitted ref erence range: 3.93 - 5 .25 10*6/?L. The re ference range was not u sed to interpret this result as normal/abnor mal. HGB (test code = 14.3 g/dL 11.6-15.0 718-7) HCT (test code = 41.7 % 35.7-45.2 4544-3) MCV (test code = 87.2 fL 80.6-95.5 787-2) MCH (test code = 29.9 pg 25.9-32.8 785-6) MCHC (test code = 34.3 g/dL 31.6-35.1 786-4) RDW-SD (test code 40.4 fL 39.0-49.9 = 29239-3) RDW-CV (test code 12.7 % 12.0-15.5 = 788-0) PLT (test code = See_Comment [Automated message] 777-3) The system whic h generated this result transmitted ref erence range: 166 - 35 8 10*3/?L. The re ference range was not u sed to interpret this result as normal/abnor mal. MPV (test code = 10.3 fL 9.5-12.9 38872-5) NRBC/100 WBC (test See_Comment [Automat ed message] code = 6269524978) The syste m which generated this result transmitted ref erence range: 0.0 - 10 .0 /100 WBCs. The refer ence range was not u sed to interpret this result as normal/abnor mal. NRBC x10^3 (test <0.01 See_Comment [Automated message] code = 2468033865) The syste m which generated this result transmitted ref erence range: 10*3/?L. The reference range was not used to interpr et this result as normal/abnormal . GRAN MAT (NEUT) % 68.0 % (test code = 770-8) IMM GRAN % (test 0.30 % code = 2624607720) LYMPH % (test code 23.0 % = 736-9) MONO % (test code 5.0 % = 5905-5) EOS % (test code = 3.0 % 713-8) BASO % (test code 0.7 % = 706-2) GRAN MAT 6.52 10*3/uL 1.88-7.09 x10^3(ANC) (test code = 9482942604) IMM GRAN x10^3 0.03 10*3/uL 0.00-0.06 (test code = 5400144922) LYMPH x10^3 (test 2.21 10*3/uL 1.32-3.29 code = 731-0) MONO x10^3 (test 0.48 10*3/uL 0.33-0.92 code = 742-7) EOS x10^3 (test 0.29 10*3/uL 0.03-0.39 code = 711-2) BASO x10^3 (test 0.07 10*3/uL 0.01-0.07 code = 704-7) [facility] GLUCOSE (AUTOMATED)2021-02-12 19:42:22 Test Item Value Reference Range Interpretation Comments POCT GLU (test code = 3978032931) 558 mg/dL 70-110 HH Lab Interpretation (test code = Abnormal 20621-9) [facility] GLUCOSE (AUTOMATED)2021-02-12 19:42:22 Test Item Value Reference Range Interpretation Comments POCT GLU (test code = 9681759346) 558 mg/dL 70-110 HH Lab Interpretation (test code = Abnormal 27811-9) [facility] GLUCOSE (AUTOMATED)2021-01-17 18:00:29 Test Item Value Reference Range Interpretation Comments POCT GLU (test code = 5490011702) 327 mg/dL 70-110 H Lab Interpretation (test code = Abnormal 68501-1) [facility] GLUCOSE (AUTOMATED)2021-01-17 13:28:29 Test Item Value Reference Range Interpretation Comments POCT GLU (test code = 0290815314) 374 mg/dL 70-110 H Lab Interpretation (test code = Abnormal 80947-4) [facility] METABOLIC PANEL (NA, K, CL, CO2, GLUCOSE, BUN, CREATININE, CA)2021-01-17 09:28:24 Test Item Value Reference Range Interpretation Comments NA (test code = 132 mmol/L 135-145 L 1669764252) K (test code = 4.5 mmol/L 3.5-5.0 7047578879) CL (test code = 106 mmol/L 98-108 0920354728) CO2 TOTAL (test code = 23 mmol/L 23-31 3445195407) AGAP (test code = 2-16 2017605071) BUN (test code = 19 mg/dL 7-23 9968777911) GLUCOSE (test code = 383 mg/dL 70-110 H 3332764106) CREATININE (test code = 0.71 mg/dL 0.50-1.04 2338324056) CALCIUM (test code = 7.9 mg/dL 8.6-10.6 L 7116582860) eGFR (test code = mL/min/1.73m2 2848484555) NISHA (test code = NISHA) Association of Glomerular Filtration Rate (GFR) and Staging of Kidney Disease* + --+ --+ ------+| GFR (mL/min/1.73 m2) ?| With Kidney Damage ?| ?Without Kidney Damage+ --------+ --------+ +| ?>90 ?| ?Stage one ?| ? Normal ?+ ---+ ---+ -------+| ?60-89 ?| ?Stage two ?| ? Decreased GFR ? + --+ --+ ------+| ?30-59 ?| ?Stage three ?| ? Stage three ? + --+ --+ ------+| ?15-29 ?| ?Stage four ? | ? Stage four ?+ ---+ ---+ -------+| ?<15 (or dialysis) ? ?| ?Stage five ? | ? Stage five ?+ ---+ ---+ -------+ *Each stage assumes the associated GFR level has been in effect for at least three months. ?Stages 1 to 5, with or without kidney disease, indicate chronic kidney disease. Notes: Determination of stages one and two (with eGFR >59mL/min/1.73 m2) requires estimation of kidney damage for at least three months as defined by structural or functional abnormalities of the kidney, manifested by either:Pathological abnormalities or Markers of kidney damage (including abnormalities in the composition of the blood or urine or abnormalities in imaging tests). Lab Interpretation Abnormal (test code = 39998-1) [facility] WITH [id number] 09:16:04 Test Item Value Reference Range Interpretation Comments WBC (test code = See_Comment [Automated message] 6690-2) The system [employer] generated this result transmitted ref erence range: 4.30 - 1 1.10 10*3/?L. The re ference range was not u sed to interpret this result as normal/abnor mal. RBC (test code = See_Comment [Automated message] 789-8) The system [employer] generated this result transmitted ref erence range: 3.93 - 5 .25 10*6/?L. The re ference range was not u sed to interpret this result as normal/abnor mal. HGB (test code = 12.9 g/dL 11.6-15.0 718-7) HCT (test code = 37.7 % 35.7-45.2 4544-3) MCV (test code = 87.1 fL 80.6-95.5 787-2) MCH (test code = 29.8 pg 25.9-32.8 785-6) MCHC (test code = 34.2 g/dL 31.6-35.1 786-4) RDW-SD (test code 39.3 fL 39.0-49.9 = 29411-9) RDW-CV (test code 12.4 % 12.0-15.5 = 788-0) PLT (test code = See_Comment [Automated message] 777-3) The system [employer] generated this result transmitted ref erence range: 166 - 35 8 10*3/?L. The re ference range was not u sed to interpret this result as normal/abnor mal. MPV (test code = 11.0 fL 9.5-12.9 41164-0) NRBC/100 WBC (test See_Comment [Automat ed message] code = 8323884224) The syste m which generated this result transmitted ref erence range: 0.0 - 10 .0 /100 WBCs. The refer ence range was not u sed to interpret this result as normal/abnor mal. NRBC x10^3 (test <0.01 See_Comment [Automated message] code = 9388991931) The syste m which generated this result transmitted ref erence range: 10*3/?L. The reference range was not used to interpr et this result as normal/abnormal . GRAN MAT (NEUT) % 52.9 % (test code = 770-8) IMM GRAN % (test 0.40 % code = 2234086013) LYMPH % (test code 35.0 % = 736-9) MONO % (test code 6.7 % = 5905-5) EOS % (test code = 4.0 % 713-8) BASO % (test code 1.0 % = 706-2) GRAN MAT 3.88 10*3/uL 1.88-7.09 x10^3(ANC) (test code = 5386207495) IMM GRAN x10^3 0.03 10*3/uL 0.00-0.06 (test code = 6845327493) LYMPH x10^3 (test 2.56 10*3/uL 1.32-3.29 code = 731-0) MONO x10^3 (test 0.49 10*3/uL 0.33-0.92 code = 742-7) EOS x10^3 (test 0.29 10*3/uL 0.03-0.39 code = 711-2) BASO x10^3 (test 0.07 10*3/uL 0.01-0.07 code = 704-7) [facility] GLUCOSE (AUTOMATED)2021-01-16 22:25:02 Test Item Value Reference Range Interpretation Comments POCT GLU (test code = 8006078277) 301 mg/dL 70-110 H Lab Interpretation (test code = Abnormal 20165-0) [facility] GLUCOSE (AUTOMATED)2021-01-16 21:22:23 Test Item Value Reference Range Interpretation Comments POCT GLU (test code = 0973337043) 228 mg/dL 70-110 H Lab Interpretation (test code = Abnormal 07276-7) [facility] [id number] 19:28:10 Test Item Value Reference Range Interpretation Comments dLDL Chol (test code = 04910-6) 51 mg/dL <130 Lab Interpretation (test code = Normal 93569-5) [facility] GLUCOSE (AUTOMATED)2021-01-16 13:20:02 Test Item Value Reference Range Interpretation Comments POCT GLU (test code = 5055318281) 282 mg/dL 70-110 H Lab Interpretation (test code = Abnormal 55787-7) [facility] (Total Cholesterol, Triglycerides, HDL) - [id number] 10:51:04 Test Item Value Reference Range Interpretation Comments CHOL (test code = 123 mg/dL 120-200 3650579454) HDL (test code = 24 mg/dL >50 L 8504111205) HDLC RATIO (test code = See_Comment H [Au tomated message] 1172326429) The system [employer] generated this result transmitted ref erence range: <=4.5. T he reference range was not used to int erpret this result as normal/abnormal . TRIG (test code = 437 mg/dL 30-170 H 7428365720) LDL CHOL (test code = Unable to calculate 14475-7) LDL due to elev ated triglyceride le sweetie greater than 40 0 mg/dL. VLDL (test code = 87 mg/dL 5-60 H 0736516332) Lab Interpretation Abnormal (test code = 82646-4) [facility] Metabolic Panel (NA, K, CL, CO2, GLUCOSE, BUN, CREATININE, CA)2021-01-16 10:50:48 Test Item Value Reference Range Interpretation Comments NA (test code = 134 mmol/L 135-145 L 5644101581) K (test code = 2.7 mmol/L 3.5-5.0 LL 4511631254) CL (test code = 101 mmol/L 98-108 2981565693) CO2 TOTAL (test code = 24 mmol/L 23-31 9553224386) AGAP (test code = 2-16 0322048376) BUN (test code = 15 mg/dL 7-23 3668014088) GLUCOSE (test code = 160 mg/dL 70-110 H 4146207617) CREATININE (test code = 0.69 mg/dL 0.50-1.04 7181677680) CALCIUM (test code = 8.5 mg/dL 8.6-10.6 L 5542416715) eGFR (test code = mL/min/1.73m2 7539656983) NISHA (test code = NISHA) Association of Glomerular Filtration Rate (GFR) and Staging of Kidney Disease* + --+ --+ ------+| GFR (mL/min/1.73 m2) ?| With Kidney Damage ?| ?Without Kidney Damage+ --------+ --------+ +| ?>90 ?| ?Stage one ?| ? Normal ?+ ---+ ---+ -------+| ?60-89 ?| ?Stage two ?| ? Decreased GFR ? + --+ --+ ------+| ?30-59 ?| ?Stage three ?| ? Stage three ? + --+ --+ ------+| ?15-29 ?| ?Stage four ? | ? Stage four ?+ ---+ ---+ -------+| ?<15 (or dialysis) ? ?| ?Stage five ? | ? Stage five ?+ ---+ ---+ -------+ *Each stage assumes the associated GFR level has been in effect for at least three months. ?Stages 1 to 5, with or without kidney disease, indicate chronic kidney disease. Notes: Determination of stages one and two (with eGFR >59mL/min/1.73 m2) requires estimation of kidney damage for at least three months as defined by structural or functional abnormalities of the kidney, manifested by either:Pathological abnormalities or Markers of kidney damage (including abnormalities in the composition of the blood or urine or abnormalities in imaging tests). Lab Interpretation Abnormal (test code = 71265-8) [facility] [id number] 10:35:20 Test Item Value Reference Range Interpretation Comments MAGNESIUM (test code = 4617398068) 1.5 mg/dL 1.7-2.4 L Lab Interpretation (test code = Abnormal 81709-4) [facility] with [id number] 10:03:39 Test Item Value Reference Range Interpretation Comments WBC (test code = See_Comment [Automated 8690-2) message] The sy stem which generated this result transmitted reference range : 4.30 - 11.10 10*3/?L. The reference range was not used to interpret this result as normal/abnormal . RBC (test code = See_Comment [Automated 514-8) message] The sy stem which generated this result transmitted reference range : 3.93 - 5.25 10*6/?L. The reference range was not used to interpret this result as normal/abnormal . HGB (test code = 14.5 g/dL 11.6-15.0 718-7) HCT (test code = 41.0 % 35.7-45.2 4544-3) MCV (test code = 84.9 fL 80.6-95.5 787-2) MCH (test code = 30.0 pg 25.9-32.8 785-6) MCHC (test code = 35.4 g/dL 31.6-35.1 H 786-4) RDW-SD (test code = 37.2 fL 39.0-49.9 L 11713-7) RDW-CV (test code = 12.1 % 12.0-15.5 788-0) PLT (test code = See_Comment [Automated 777-3) message] The sy stem which generated this result transmitted reference range : 166 - 358 10*3/ ?L. The reference r chelsie was not used to interpret this result as normal/abnormal . MPV (test code = 10.9 fL 9.5-12.9 22959-2) NRBC/100 WBC (test See_Comment [Automat ed code = 1069705684) message] The system which generated this result transmitted reference range : 0.0 - 10.0 /100 WBCs. The refer ence range was not u sed to interpret th is result as normal/abnormal . NRBC x10^3 (test code <0.01 See_Comment [Auto mated = 6142945822) message] The s ystem which generated this result transmitted reference range : 10*3/?L. The reference range was not used to interpret this result as normal/abnormal . GRAN MAT (NEUT) % 37.0 % (test code = 770-8) IMM GRAN % (test code 0.30 % = 0653973690) LYMPH % (test code = 47.8 % 736-9) MONO % (test code = 8.6 % 5905-5) EOS % (test code = 5.0 % 713-8) BASO % (test code = 1.3 % 706-2) GRAN MAT x10^3(ANC) 2.37 10*3/uL 1.88-7.09 (test code = 9898005777) IMM GRAN x10^3 (test <0.03 0.00-0.06 code = 7266465934) LYMPH x10^3 (test code 3.06 10*3/uL 1.32-3.29 = 731-0) MONO x10^3 (test code 0.55 10*3/uL 0.33-0.92 = 742-7) EOS x10^3 (test code = 0.32 10*3/uL 0.03-0.39 711-2) BASO x10^3 (test code 0.08 10*3/uL 0.01-0.07 H = 704-7) Lab Interpretation Abnormal (test code = 96952-6) [facility] GLUCOSE (AUTOMATED)2021-01-16 08:30:27 Test Item Value Reference Range Interpretation Comments POCT GLU (test code = [id number]) 171 mg/dL 70-110 H Lab Interpretation (test code = Abnormal 42355-6) [facility] GLUCOSE (AUTOMATED)2021-01-16 03:57:09 Test Item Value Reference Range Interpretation Comments POCT GLU (test code = [id number]) 407 mg/dL 70-110 H Lab Interpretation (test code = Abnormal 12351-2) [facility] [id number] 02:31:30COVID DMT InterpretationInterpretation/Recommendations:Molecular NAAT Tests for Active Infection with the SARS-CoV-2 Virus:The patient has currently tested negative for the SARS-CoV-2 virus that causesCOVID-19 illness. This most likely indicates that the patient does not have an active infection withthe SARS-CoV-2 virus. However, infection is not completely ruled out as the false negative rate for molecular NAAT testing using a nasopharyngeal sample can be up to 30%, mostly dependent on the timingof sample collection in relation to illness onset and any deficiencies in sampling techniques. If the patient has symptoms concerning for COVID-19 illness, a repeat NAAT test (PCR, Rapid ID Now, etc.) should be performed, at which time the SARS-CoV-2 virus if present may have reached a detectable viral load (usually peaking by the end of the first week of symptoms). Tests for IgM and/or IgG Antibodies to the SARS-CoV-2 Virus:Testing for IgM and IgG antibodies approximately 3 weeks after illness onset will likely indicate if the patient has produced antibodies to the SARS-CoV-2 virus. However, some patients may take longer to develop detectable antibodies, while others infected with SARS-CoV-2 may never develop antibodies, particularly those who have had mild or asymptomatic illness. Of note, if the patient has been vaccinated earlier than 1-2 weeks prior to antibody testing, any fhucpullVGDS-GwI-8 IgG antibody result is likely due to vaccination. The specific duration and strength of immunity from SARS-CoV-2 IgG antibodies is highly variable between individuals and is dependent on a variety of factors, including infection vs. vaccination response, initial infection severity, the strength of the patient's own immune system, and the variants to which the patient has been exposed. ? --- Interpretation Result Comments:These interpretation comments are based upon all COVID-19 testing the patient has had at [facility], including molecular NAAT testing (more commonly known as PCR testing and Rapid ID Now testing) and antibody testing. It does not take into account any testing that a patient has had outside of the [facility] medical record. [facility] LABORATORY SERVICESCOVID IwzfzxlSBNT-RzX-2 Rapid ID NOW (no units) ? ? Date ? Value ? 01/15/2021 ? Not Detected ? ? ? 11/30/2020 ? Not Detected ? ? ? 09/05/2020 ? Not Detected ? [facility]ORAT[facility] SERVICESUnOakBend Medical CenterUrinalysis2021-08-21 02:28:46 Test Item Value Reference Range Interpretation Comments APPEARANCE (test code = Hazy Clear A 8442563322) COLOR (test code = Yellow Yellow 6655369088) PH (test code = 4.8-8.0 9515333961) SP GRAVITY (test code = 1.003-1.030 6819752627) GLU U QUAL (test code = 500 mg/dL Normal A 7766755933) BLOOD (test code = 1+ Negative A 3364279709) KETONES (test code = Negative Negative 0538689511) PROTEIN (test code = Negative Negative 2887-8) UROBILIN (test code = Normal Normal 9836457333) BILIRUBIN (test code = Negative Negative 9053713561) NITRITE (test code = Negative Negative 1433406690) LEUK JOSEFA (test code = 500/uL Negative A 4069440594) RBC/HPF (test code = See_Comment H [Autom ated message] 8917532484) The system [employer] generated this result transmit anthony reference range : 0 - 3 HPF. The refe rence range was not u sed to interpret th is result as normal/abnormal . WBC/HPF (test code = See_Comment H [Autom ated message] 5551974995) The system [employer] generated this result transmit anthony reference range : 0 - 5 HPF. The refe rence range was not u sed to interpret th is result as normal/abnormal . BACTERIA (test code = Few Negative A 3330755215) MUCOUS (test code = Slight Negative LPF A 5029297493) SQ EPITH (test code = HPF 5209396346) Lab Interpretation (test Abnormal code = 07329-0) [facility])2021-01-16 01:20:09 Test Item Value Reference Range Interpretation Comments POCT GLU (test code = 8572472473) 525 mg/dL 70-110 HH Lab Interpretation (test code = Abnormal 67218-1) [facility] CenterThyroid Stimulating Hormone (TSH)2021-01-16 00:51:02 Test Item Value Reference Range Interpretation Comments TSH (test code = See_Comment [Automated message] 4617767217) The system [employer] generated this result transmitted ref erence range: 0.45 - 4 .70 mIU/L. The refe rence range was not u sed to interpret this result as normal/abnor mal. Lab Interpretation (test Normal code = 11372-1) [facility] CenterTroponin [id number] 00:32:40 Test Item Value Reference Interpretation Comments Range TROPONIN I (test 0.006 ng/mL See_Comment [Automated code = 4562646841) message] The system which generated this result transmitted reference range : <=0.034. The reference range was not used to interpret this result as normal/abnormal . NISHA (test code = Reference (Normal) NISHA) Range (defined by the 99th percentile reference limit): <= 0.034 ng/mL Note: Cardiac troponin begins to rise 3-4 hours after the onset of ischemia. Repeat in 4-6 hours if the sample was drawn within 3-4 hours of the onset of the symptom and found normal. Diagnosis of myocardial injury is made with acute changes in cTn concentrations with at least one serial sample above the 99th percentile upper reference limit (URL), taken together with the patient's clinical presentation. Biotin has been reported to cause a negative bias, interpret results relative to patient's use of biotin. Lab Interpretation Normal (test code = 20439-8) [facility] CenterHEPATIC FUNCTION PANEL (09689) (ALB,T.PRO,BILI T,BU/BC,ALT,AST,ALK PHOS)2021-01-16 00:20:20 Test Item Value Reference Range Interpretation Comments TOTAL BILI (test code = 1766903548) 0.8 mg/dL 0.1-1.1 BILI UNCON (test code = 6654285108) 0.5 mg/dL 0.1-1.1 BILI CONJ (test code = 8679192721) 0.0 mg/dL 0.0-0.3 T PROTEIN (test code = 0303780076) 7.6 g/dL 6.3-8.2 ALBUMIN (test code = 1219445315) 4.0 g/dL 3.5-5.0 ALK PHOS (test code = 4959727591) 159 U/L 34-122 H ALTv (test code = 1742-6) 18 U/L 5-35 AST(SGOT) (test code = 9558713433) 27 U/L 13-40 Lab Interpretation (test code = Abnormal 41306-7) [facility] CenterPhosphorus [id number] 00:19:59 Test Item Value Reference Range Interpretation Comments PHOSPHORUS (test code = 0924188152) 3.4 mg/dL 2.5-5.0 Lab Interpretation (test code = Normal 48490-6) [facility] CenterGlycosylated Hemoglobin (A1C)2021-01-16 00:15:56 Test Item Value Reference Range Interpretation Comments HGB A1C (test code = >14.0 4.0-5.7 H 4548-4) NISHA (test code = NISHA) Reference RangesNormal: <5.7%Prediabetes: 5.7 - 6.4%Diabetes: > 6.5% Lab Interpretation (test Abnormal code = 63498-6) [facility] CenterPOCT GL[facility]SE (AUT[facility]ATED)2021-01-15 22:36:13 Test Item Value Reference Range Interpretation Comments POCT GLU (test code = 6594437722) 565 mg/dL 70-110 HH Lab Interpretation (test code = Abnormal 15590-5) [facility] CenterCOVID-19 (ID NOW RAPID TESTING)2021-01-15 21:10:19 Test Item Value Reference Range Interpretation Comments SARS-CoV-2 Rapid ID NOW Not Detected Not Detected (test code = 52388-4) NISHA (test code = NISHA) ID NOW COVID-19 Assay is an isothermal nucleic acid amplification test intended for the qualitative detection of nucleic acid from SARS-CoV-2 viral RNA in nasopharyngeal (CHILD CARE PROVIDER) specimens. It is used under Emergency Use Authorization (EUA) by FDA. The limit of detection (LOD) of the assay is 125 Genome Equivalents/mL. A positive result is indicative of the presence of SARS-CoV-2 RNA. ?Clinical correlation with patient history and other diagnostic information is necessary to determine patient infection status. A negative (Not Detected) result does not preclude SARS-CoV-2 infection. In patients with clinical symptoms and other tests that are consistent with SARS-CoV-2 infection, negative results should be treated as presumptive negative and a new specimen should be tested with alternative PCR molecular test. Invalid: Please collect a new specimen for repeat patient testing if clinically indicated. Lab Interpretation Normal (test code = 94526-3) [facility] HEMOGLOBIN A1C [id number] 16:42:00 Test Item Value Reference Range Interpretation Comments POCT HBA1C (test code = 4548-4) 14 % 4-6 A Lab Interpretation (test code = Abnormal 17683-2) [facility] HEMOGLOBIN A1C [id number] 16:42:00 Test Item Value Reference Range Interpretation Comments POCT HBA1C (test code = 4548-4) 14 % 4-6 A Lab Interpretation (test code = Abnormal 28124-1) [facility] GLUCOSE (AUTOMATED)2020-12-01 17:40:09 Test Item Value Reference Range Interpretation Comments POCT GLU (test code = 350 mg/dL 70-110 H Notifi ed Provider [id number]) Lab Interpretation (test Abnormal code = 83380-5) [facility] GLUCOSE (AUTOMATED)2020-12-01 13:22:36 Test Item Value Reference Range Interpretation Comments POCT GLU (test code = 0096763659) 215 mg/dL 70-110 H Lab Interpretation (test code = Abnormal 04405-1) [facility] Metabolic Panel (NA, K, CL, CO2, GLUCOSE, BUN, CREATININE, CA)2020-12-01 11:30:25 Test Item Value Reference Range Interpretation Comments NA (test code = 135 mmol/L 135-145 5339350967) K (test code = 4.0 mmol/L 3.5-5.0 3071053586) CL (test code = 104 mmol/L 98-108 3315169051) CO2 TOTAL (test code = 21 mmol/L 23-31 L 5752611024) AGAP (test code = 2-16 3422330223) BUN (test code = 13 mg/dL 7-23 2470647540) GLUCOSE (test code = 388 mg/dL 70-110 H 0417525476) CREATININE (test code = 0.69 mg/dL 0.50-1.04 1860471490) CALCIUM (test code = 8.0 mg/dL 8.6-10.6 L 0282660329) eGFR (test code = mL/min/1.73m2 1811987831) NISHA (test code = NISHA) Association of Glomerular Filtration Rate (GFR) and Staging of Kidney Disease* + --+ --+ ------+| GFR (mL/min/1.73 m2) ?| With Kidney Damage ?| ?Without Kidney Damage+ --------+ --------+ +| ?>90 ?| ?Stage one ?| ? Normal ?+ ---+ ---+ -------+| ?60-89 ?| ?Stage two ?| ? Decreased GFR ? + --+ --+ ------+| ?30-59 ?| ?Stage three ?| ? Stage three ? + --+ --+ ------+| ?15-29 ?| ?Stage four ? | ? Stage four ?+ ---+ ---+ -------+| ?<15 (or dialysis) ? ?| ?Stage five ? | ? Stage five ?+ ---+ ---+ -------+ *Each stage assumes the associated GFR level has been in effect for at least three months. ?Stages 1 to 5, with or without kidney disease, indicate chronic kidney disease. Notes: Determination of stages one and two (with eGFR >59mL/min/1.73 m2) requires estimation of kidney damage for at least three months as defined by structural or functional abnormalities of the kidney, manifested by either:Pathological abnormalities or Markers of kidney damage (including abnormalities in the composition of the blood or urine or abnormalities in imaging tests). Lab Interpretation Abnormal (test code = 39163-2) [facility] CenterMagnesium [id number] 11:30:25 Test Item Value Reference Range Interpretation Comments MAGNESIUM (test code = 5842552996) 1.6 mg/dL 1.7-2.4 L Lab Interpretation (test code = Abnormal 06282-6) [facility] CenterCB with [id number] 10:38:41 Test Item Value Reference Range Interpretation Comments WBC (test code = See_Comment [Automated 1990-2) message] The sy stem which generated this result transmitted reference range : 4.30 - 11.10 10*3/?L. The reference range was not used to interpret this result as normal/abnormal . RBC (test code = See_Comment [Automated 559-8) message] The sy stem which generated this result transmitted reference range : 3.93 - 5.25 10*6/?L. The reference range was not used to interpret this result as normal/abnormal . HGB (test code = 13.6 g/dL 11.6-15.0 718-7) HCT (test code = 38.8 % 35.7-45.2 4544-3) MCV (test code = 87.0 fL 80.6-95.5 787-2) MCH (test code = 30.5 pg 25.9-32.8 785-6) MCHC (test code = 35.1 g/dL 31.6-35.1 786-4) RDW-SD (test code = 38.6 fL 39.0-49.9 L 76663-6) RDW-CV (test code = 12.1 % 12.0-15.5 788-0) PLT (test code = See_Comment [Automated 637-3) message] The sy stem which generated this result transmitted reference range : 166 - 358 10*3/ ?L. The reference r chelsie was not used to interpret this result as normal/abnormal . MPV (test code = 10.6 fL 9.5-12.9 03458-5) NRBC/100 WBC (test See_Comment [Automat ed code = 5973841650) message] The system which generated this result transmitted reference range : 0.0 - 10.0 /100 WBCs. The refer ence range was not u sed to interpret th is result as normal/abnormal . NRBC x10^3 (test code <0.01 See_Comment [Auto mated = 8924746454) message] The s ystem which generated this result transmitted reference range : 10*3/?L. The reference range was not used to interpret this result as normal/abnormal . GRAN MAT (NEUT) % 73.2 % (test code = 770-8) IMM GRAN % (test code 0.40 % = 8033207014) LYMPH % (test code = 18.4 % 736-9) MONO % (test code = 5.6 % 5905-5) EOS % (test code = 2.0 % 713-8) BASO % (test code = 0.4 % 706-2) GRAN MAT x10^3(ANC) 7.52 10*3/uL 1.88-7.09 H (test code = 4746254986) IMM GRAN x10^3 (test 0.04 10*3/uL 0.00-0.06 code = 2283935415) LYMPH x10^3 (test code 1.89 10*3/uL 1.32-3.29 = 731-0) MONO x10^3 (test code 0.58 10*3/uL 0.33-0.92 = 742-7) EOS x10^3 (test code = 0.21 10*3/uL 0.03-0.39 711-2) BASO x10^3 (test code 0.04 10*3/uL 0.01-0.07 = 704-7) Lab Interpretation Abnormal (test code = 86021-2) [facility] GLUCOSE (AUTOMATED)2020-12-01 02:30:55 Test Item Value Reference Range Interpretation Comments POCT GLU (test code = 6131807077) 347 mg/dL 70-110 H Lab Interpretation (test code = Abnormal 57983-6) [facility] CenterACTIVATED PARTIAL THRMPLAS [id number] 01:05:55 Test Item Value Reference Range Interpretation Comments APTT Patient (test code See_Comment H [Au tomated message] = 3173-2) The system [employer] generated this result transmitted ref erence range: 26 - 36 Seconds. The reference range was not used to int erpret this result as normal/abnormal . Lab Interpretation (test Abnormal code = 74638-4) [facility] COVID [id number] 22:44:24COVID DMT InterpretationInterpretation/Recommendations:Molecular NAAT Tests for Active Infection with the SARS-CoV-2 Virus:The patient has currently tested negative for the SARS-CoV-2 virus that causesCOVID-19 illness. This most likely indicates that the patient does not have an active infection withthe SARS-CoV-2 virus. However, infection is not completely ruled out as the false negative rate for molecular NAAT testing using a nasopharyngeal sample can be up to 30%, mostly dependent on the timingof sample collection in relation to illness onset and any deficiencies in sampling techniques. If the patient has symptoms concerning for COVID-19 illness, a repeat NAAT test (PCR, Rapid ID Now, etc.) should be performed, at which time the SARS-CoV-2 virus - if present - may have reached a detectable viral load (usually peaking by the end of the first week of symptoms). Tests for IgM and/or IgG Antibodies to the SARS-CoV-2 Virus:If the patient develops COVID-19 illness in the future, testing for IgMand IgG antibodies approximately 3 weeks after illness onset will likely indicate if the patient hasproduced antibodies to the SARS-CoV-2 virus. However, some patients may take longer to develop detectable antibodies, while some patients who were infected with SARS-CoV-2 may never develop antibodies.While antibodies to SARS-CoV-2 may provide some degree of immunity, at this time the strength and duration of the antibody response is unknown. Interpretation Result Comments:These interpretation comments are based upon all COVID-19 testing the patient has had at [facility], including molecular NAAT testing (more commonly known as PCR testing and Rapid ID Now testing) and antibody testing. It does not take into account any testing that a patient has had outside of the [facility] medical record. [facility] LABORATORY SERVICESCOVID ResultsSARS- CoV-2 Rapid ID NOW (no units) ? ? Date ? Value ? 11/30/2020 ? Not Detected ? ? ? 09/05/2020 ? Not Detected ? [facility]ORY SERVICESUnOakBend Medical Center POCT ACT LOW [id number] 22:26:21 Test Item Value Reference Range Interpretation Comments ACTLR (test code = See_Comment H [Automat ed message] 4582701649) The system [employer] generated this result transmitted ref erence range: 89 - 169 Seconds. The reference range was not used to int erpret this result as normal/abnormal . Lab Interpretation (test Abnormal code = 05844-3) [facility] CenterPOCT ACT LOW [id number] 22:03:24 Test Item Value Reference Range Interpretation Comments ACTLR (test code = See_Comment H [Automat ed message] 7206347179) The system [employer] generated this result transmitted ref erence range: 89 - 169 Seconds. The reference range was not used to int erpret this result as normal/abnormal . Lab Interpretation (test Abnormal code = 32511-8) [facility] CenterBASIC METABOLIC PANEL (NA, K, CL, CO2, GLUCOSE, BUN, CREATININE, CA)2020-11-30 16:00:24 Test Item Value Reference Range Interpretation Comments NA (test code = 130 mmol/L 135-145 L 6731751599) K (test code = 3.8 mmol/L 3.5-5.0 8386919124) CL (test code = 98 mmol/L 98-108 5227721073) CO2 TOTAL (test code = 25 mmol/L 23-31 2313094072) AGAP (test code = 2-16 5054311089) BUN (test code = 12 mg/dL 7- 5102676180) GLUCOSE (test code = 624 mg/dL 70-110 HH 8452944309) CREATININE (test code = 0.63 mg/dL 0.50-1.04 6414356507) CALCIUM (test code = 8.2 mg/dL 8.6-10.6 L 4849050537) eGFR (test code = mL/min/1.73m2 0010829791) NISHA (test code = NISHA) Association of Glomerular Filtration Rate (GFR) and Staging of Kidney Disease* + --+ --+ ------+| GFR (mL/min/1.73 m2) ?| With Kidney Damage ?| ?Without Kidney Damage+ --------+ --------+ +| ?>90 ?| ?Stage one ?| ? Normal ?+ ---+ ---+ -------+| ?60-89 ?| ?Stage two ?| ? Decreased GFR ? + --+ --+ ------+| ?30-59 ?| ?Stage three ?| ? Stage three ? + --+ --+ ------+| ?15-29 ?| ?Stage four ? | ? Stage four ?+ ---+ ---+ -------+| ?<15 (or dialysis) ? ?| ?Stage five ? | ? Stage five ?+ ---+ ---+ -------+ *Each stage assumes the associated GFR level has been in effect for at least three months. ?Stages 1 to 5, with or without kidney disease, indicate chronic kidney disease. Notes: Determination of stages one and two (with eGFR >59mL/min/1.73 m2) requires estimation of kidney damage for at least three months as defined by structural or functional abnormalities of the kidney, manifested by either:Pathological abnormalities or Markers of kidney damage (including abnormalities in the composition of the blood or urine or abnormalities in imaging tests). Lab Interpretation Abnormal (test code = 96750-3) [facility] CenterC[facility] (ID NOW RAPID TESTING)2020-11-30 13:55:18 Test Item Value Reference Range Interpretation Comments SARS-CoV-2 Rapid ID NOW Not Detected Not Detected (test code = 13408-3) NISHA (test code = NISHA) ID NOW COVID-19 Assay is an isothermal nucleic acid amplification test intended for the qualitative detection of nucleic acid from SARS-CoV-2 viral RNA in nasopharyngeal (CHILD CARE PROVIDER) specimens. It is used under Emergency Use Authorization (EUA) by FDA. The limit of detection (LOD) of the assay is 125 Genome Equivalents/mL. A positive result is indicative of the presence of SARS-CoV-2 RNA. ?Clinical correlation with patient history and other diagnostic information is necessary to determine patient infection status. A negative (Not Detected) result does not preclude SARS-CoV-2 infection. In patients with clinical symptoms and other tests that are consistent with SARS-CoV-2 infection, negative results should be treated as presumptive negative and a new specimen should be tested with alternative PCR molecular test. Invalid: Please collect a new specimen for repeat patient testing if clinically indicated. Lab Interpretation Normal (test code = 89741-9) [facility] GLUCOSE(AGE >30DAYS)2020-10-07 19:39:00 Test Item Value Reference Range Interpretation Comments POCT Glu (age>30days) (test code = 189 mg/dL 70-110 A 3342) Lab Interpretation (test code = Abnormal 95782-9) [facility] GLUCOSE(AGE >30DAYS)2020-10-07 19:39:00 Test Item Value Reference Range Interpretation Comments POCT Glu (age>30days) (test code = 189 mg/dL 70-110 A 3342) Lab Interpretation (test code = Abnormal 17258-3) [facility] GLUCOSE (AUTOMATED)2020-09-07 22:31:04 Test Item Value Reference Range Interpretation Comments POCT GLU (test code = 5070253601) 72 mg/dL 70-110 Lab Interpretation (test code = Normal 50765-6) [facility] GLUCOSE (AUTOMATED)2020-09-07 21:54:57 Test Item Value Reference Range Interpretation Comments POCT GLU (test code = 5861749176) 88 mg/dL 70-110 Lab Interpretation (test code = Normal 33262-4) [facility] CenterVITAMIN D, [id number] 21:07:23 Test Item Value Reference Range Interpretation Comments VIT D 25OH (test code = <13 25-80 L 14770-2) NISHA (test code = NISHA) Deficiency: <20 ng/mLInsufficiency: 20-24 ng/mLOptimal: 25-80 ng/mL Lab Interpretation (test Abnormal code = 45307-3) [facility] GLUCOSE (AUTOMATED)2020-09-07 20:17:01 Test Item Value Reference Range Interpretation Comments POCT GLU (test code = 4622908184) 47 mg/dL 70-110 LL Lab Interpretation (test code = Abnormal 83824-6) [facility] GLUCOSE (AUTOMATED)2020-09-07 17:19:43 Test Item Value Reference Range Interpretation Comments POCT GLU (test code = 7600238990) 46 mg/dL 70-110 LL Lab Interpretation (test code = Abnormal 86958-6) [facility] GLUCOSE (AUTOMATED)2020-09-07 17:19:42 Test Item Value Reference Range Interpretation Comments POCT GLU (test code = 3442177051) 183 mg/dL 70-110 H Lab Interpretation (test code = Abnormal 77497-2) [facility] WITH [id number] 11:16:01 Test Item Value Reference Range Interpretation Comments WBC (test code = See_Comment H [Automated 6690-2) message] The sy stem which generated this result transmitted reference range : 4.30 - 11.10 10*3/?L. The reference range was not used to interpret this result as normal/abnormal . RBC (test code = See_Comment L [Automated 789-8) message] The sy stem which generated this result transmitted reference range : 3.93 - 5.25 10*6/?L. The reference range was not used to interpret this result as normal/abnormal . HGB (test code = 11.8 g/dL 11.6-15.0 718-7) HCT (test code = 35.2 % 35.7-45.2 L 4544-3) MCV (test code = 90.3 fL 80.6-95.5 787-2) MCH (test code = 30.3 pg 25.9-32.8 785-6) MCHC (test code = 33.5 g/dL 31.6-35.1 786-4) RDW-SD (test code = 42.8 fL 39.0-49.9 23679-3) RDW-CV (test code = 13.1 % 12.0-15.5 788-0) PLT (test code = See_Comment [Automated 777-3) message] The sy stem which generated this result transmitted reference range : 166 - 358 10*3/ ?L. The reference r chelsie was not used to interpret this result as normal/abnormal . MPV (test code = 11.4 fL 9.5-12.9 56311-9) IPF % (test code = 3.7 % 1.3-7.7 Platelet count 3867326922) measured by fluorescence method. NRBC/100 WBC (test See_Comment [Automat ed code = 9959310019) message] The system which generated this result transmitted reference range : 0.0 - 10.0 /100 WBCs. The refer ence range was not u sed to interpret th is result as normal/abnormal . NRBC x10^3 (test code <0.01 See_Comment [Auto mated = 6732298089) message] The s ystem which generated this result transmitted reference range : 10*3/?L. The reference range was not used to interpret this result as normal/abnormal . GRAN MAT (NEUT) % 82.6 % (test code = 770-8) IMM GRAN % (test code 0.50 % = 7870931962) LYMPH % (test code = 8.8 % 736-9) MONO % (test code = 6.3 % 5905-5) EOS % (test code = 1.6 % 713-8) BASO % (test code = 0.2 % 706-2) GRAN MAT x10^3(ANC) 11.20 10*3/uL 1.88-7.09 H (test code = 4524130300) IMM GRAN x10^3 (test 0.07 10*3/uL 0.00-0.06 H code = 0618170477) LYMPH x10^3 (test 1.19 10*3/uL 1.32-3.29 L code = 731-0) MONO x10^3 (test code 0.85 10*3/uL 0.33-0.92 = 742-7) EOS x10^3 (test code 0.22 10*3/uL 0.03-0.39 = 711-2) BASO x10^3 (test code 0.03 10*3/uL 0.01-0.07 = 704-7) Lab Interpretation Abnormal (test code = 29217-9) [facility] 11:07:40 Test Item Value Reference Range Interpretation Comments POCT GLU (test code = 7150722327) 215 mg/dL 70-110 H Lab Interpretation (test code = Abnormal 28155-1) [facility]. METABOLIC PANEL ([id number])2020-09-07 10:56:53 Test Item Value Reference Range Interpretation Comments NA (test code = 137 mmol/L 135-145 3077330099) K (test code = 4.6 mmol/L 3.5-5.0 9019155853) CL (test code = 109 mmol/L 98-108 H 3852365933) CO2 TOTAL (test code = 22 mmol/L 23-31 L 9764913034) AGAP (test code = 2-16 2017218207) BUN (test code = 8 mg/dL 7-23 9934970793) GLUCOSE (test code = 177 mg/dL 70-110 H 9552873852) CREATININE (test code = 0.62 mg/dL 0.50-1.04 1150379219) TOTAL BILI (test code = 0.3 mg/dL 0.1-1.2 7632314115) CALCIUM (test code = 7.9 mg/dL 8.6-10.6 L 3875040166) T PROTEIN (test code = 5.1 g/dL 6.3-8.2 L 4169990740) ALBUMIN (test code = 2.7 g/dL 3.5-5.0 L 6945483148) ALK PHOS (test code = 73 U/L 34-122 0405708088) ALTv (test code = 14 U/L 5-35 1742-6) AST(SGOT) (test code = 23 U/L 13-40 0150023950) eGFR (test code = mL/min/1.73m2 5888220732) NISHA (test code = NISHA) Association of Glomerular Filtration Rate (GFR) and Staging of Kidney Disease* + --+ --+ ------+| GFR (mL/min/1.73 m2) ?| With Kidney Damage ?| ?Without Kidney Damage+ --------+ --------+ +| ?>90 ?| ?Stage one ?| ? Normal ?+ ---+ ---+ -------+| ?60-89 ?| ?Stage two ?| ? Decreased GFR ? + --+ --+ ------+| ?30-59 ?| ?Stage three ?| ? Stage three ? + --+ --+ ------+| ?15-29 ?| ?Stage four ? | ? Stage four ?+ ---+ ---+ -------+| ?<15 (or dialysis) ? ?| ?Stage five ? | ? Stage five ?+ ---+ ---+ -------+ *Each stage assumes the associated GFR level has been in effect for at least three months. ?Stages 1 to 5, with or without kidney disease, indicate chronic kidney disease. Notes: Determination of stages one and two (with eGFR >59mL/min/1.73 m2) requires estimation of kidney damage for at least three months as defined by structural or functional abnormalities of the kidney, manifested by either:Pathological abnormalities or Markers of kidney damage (including abnormalities in the composition of the blood or urine or abnormalities in imaging tests). Lab Interpretation Abnormal (test code = 05968-1) [facility] [id number] 06:01:46 Test Item Value Reference Range Interpretation Comments ISIDORO 30 (test code 17.8 ug/dL = 6234460026) NISHA (test code = Normal peak serum cortisol NISHA) is greater than 20 ug/dL 30-60 minutes after 25 units of Cosyntropin IV. Biotin has been reported to cause a positive bias, interpret results relative to patient's use of biotin. [facility] [id number] 05:52:48 Test Item Value Reference Range Interpretation Comments ISIDORO 0 (test code = 15.7 ug/dL 4.5-23.0 9179994258) NISHA (test code = NISHA) Biotin has been reported to cause a positive bias, interpret results relative to patient's use of biotin. Lab Interpretation (test Normal code = 73915-9) [facility] 60 [id number] 05:51:28 Test Item Value Reference Range Interpretation Comments ISIDORO 60 (test code 16.6 ug/dL = 9421409191) NISHA (test code = Normal peak serum cortisol NISHA) is greater than 20 ug/dL 30-60 minutes after 25 units of Cosyntropin IV. Biotin has been reported to cause a positive bias, interpret results relative to patient's use of biotin. [facility] GLUCOSE (AUTOMATED)2020-09-06 21:06:52 Test Item Value Reference Range Interpretation Comments POCT GLU (test code = 9043094598) 73 mg/dL 70-110 Lab Interpretation (test code = Normal 77687-5) [facility] GLUCOSE (AUTOMATED)2020-09-06 20:00:38 Test Item Value Reference Range Interpretation Comments POCT GLU (test code = 1085084595) 38 mg/dL 70-110 LL Lab Interpretation (test code = Abnormal 78206-5) [facility] [id number] 18:39:49 Test Item Value Reference Range Interpretation Comments ISIDORO AM (test code = 1.6 ug/dL 4.5-23.0 L 6867940023) NISHA (test code = NISHA) Biotin has been reported to cause a positive bias, interpret results relative to patient's use of biotin. Lab Interpretation (test Abnormal code = 60596-1) [facility] GLUCOSE (AUTOMATED)2020-09-06 16:42:57 Test Item Value Reference Range Interpretation Comments POCT GLU (test code = 1752080724) 120 mg/dL 70-110 H Lab Interpretation (test code = Abnormal 50777-7) [facility] GLUCOSE (AUTOMATED)2020-09-06 12:48:51 Test Item Value Reference Range Interpretation Comments POCT GLU (test code = 6114025353) 217 mg/dL 70-110 H Lab Interpretation (test code = Abnormal 92307-0) [facility]AL [id number] 11:44:45 Test Item Value Reference Range Interpretation Comments NT-proBNP (test code 423 pg/mL See_Comment H [Autom ated = 5031444598) message] The system which generated this result transmitted reference range : <=125. The reference range was not used to interpret this result as normal/abnormal . NISHA (test code = NISHA) Biotin has been reported to cause a negative bias, interpret results relative to patient's use of biotin. Lab Interpretation Abnormal (test code = 64391-1) [facility]UM2021-[facility] 11:36:41 Test Item Value Reference Range Interpretation Comments MAGNESIUM (test code = 8889304001) 1.7 mg/dL 1.7-2.4 Lab Interpretation (test code = Normal 37362-6) [facility]OLIC PANEL (17745)2020-09-06 11:36:21 Test Item Value Reference Range Interpretation Comments NA (test code = 138 mmol/L 135-145 0723887949) K (test code = 4.1 mmol/L 3.5-5.0 5183962299) CL (test code = 110 mmol/L 98-108 H 7531212924) CO2 TOTAL (test code = 25 mmol/L 23-31 6389393026) AGAP (test code = 2-16 8366180876) BUN (test code = 9 mg/dL 7-23 8652565398) GLUCOSE (test code = 196 mg/dL 70-110 H 0648333019) CREATININE (test code = 0.78 mg/dL 0.50-1.04 3957376023) TOTAL BILI (test code = 0.4 mg/dL 0.1-1.0 7108252009) CALCIUM (test code = 7.9 mg/dL 8.6-10.6 L 4655204012) T PROTEIN (test code = 5.0 g/dL 6.3-8.2 L 2512441985) ALBUMIN (test code = 2.6 g/dL 3.5-5.0 L 6950335291) ALK PHOS (test code = 65 U/L 34-122 1248279001) ALTv (test code = 13 U/L 5-35 1742-6) AST(SGOT) (test code = 24 U/L 13-40 4384212221) eGFR (test code = mL/min/1.73m2 3113160948) NISHA (test code = NISHA) Association of Glomerular Filtration Rate (GFR) and Staging of Kidney Disease* + --+ --+ ------+| GFR (mL/min/1.73 m2) ?| With Kidney Damage ?| ?Without Kidney Damage+ --------+ --------+ +| ?>90 ?| ?Stage one ?| ? Normal ?+ ---+ ---+ -------+| ?60-89 ?| ?Stage two ?| ? Decreased GFR ? + --+ --+ ------+| ?30-59 ?| ?Stage three ?| ? Stage three ? + --+ --+ ------+| ?15-29 ?| ?Stage four ? | ? Stage four ?+ ---+ ---+ -------+| ?<15 (or dialysis) ? ?| ?Stage five ? | ? Stage five ?+ ---+ ---+ -------+ *Each stage assumes the associated GFR level has been in effect for at least three months. ?Stages 1 to 5, with or without kidney disease, indicate chronic kidney disease. Notes: Determination of stages one and two (with eGFR >59mL/min/1.73 m2) requires estimation of kidney damage for at least three months as defined by structural or functional abnormalities of the kidney, manifested by either:Pathological abnormalities or Markers of kidney damage (including abnormalities in the composition of the blood or urine or abnormalities in imaging tests). Lab Interpretation Abnormal (test code = 02384-3) [facility] CenterPHOSPHORUS2021-04-11 11:36:20 Test Item Value Reference Range Interpretation Comments PHOSPHORUS (test code = 8131142504) 4.3 mg/dL 2.5-5.0 Lab Interpretation (test code = Normal 76133-4) [facility] WITH [id number] 11:26:03 Test Item Value Reference Range Interpretation Comments WBC (test code = See_Comment [Automated 9990-2) message] The sy stem which generated this result transmitted reference range : 4.30 - 11.10 10*3/?L. The reference range was not used to interpret this result as normal/abnormal . RBC (test code = See_Comment L [Automated 079-8) message] The sy stem which generated this result transmitted reference range : 3.93 - 5.25 10*6/?L. The reference range was not used to interpret this result as normal/abnormal . HGB (test code = 11.8 g/dL 11.6-15.0 718-7) HCT (test code = 33.9 % 35.7-45.2 L 4544-3) MCV (test code = 88.5 fL 80.6-95.5 787-2) MCH (test code = 30.8 pg 25.9-32.8 785-6) MCHC (test code = 34.8 g/dL 31.6-35.1 786-4) RDW-SD (test code = 42.7 fL 39.0-49.9 73934-6) RDW-CV (test code = 13.2 % 12.0-15.5 788-0) PLT (test code = See_Comment [Automated 777-3) message] The sy stem which generated this result transmitted reference range : 166 - 358 10*3/ ?L. The reference r chelsie was not used to interpret this result as normal/abnormal . MPV (test code = 10.5 fL 9.5-12.9 35375-2) NRBC/100 WBC (test See_Comment [Automat ed code = 2857892638) message] The system which generated this result transmitted reference range : 0.0 - 10.0 /100 WBCs. The refer ence range was not u sed to interpret th is result as normal/abnormal . NRBC x10^3 (test code <0.01 See_Comment [Auto mated = 8317156040) message] The s ystem which generated this result transmitted reference range : 10*3/?L. The reference range was not used to interpret this result as normal/abnormal . GRAN MAT (NEUT) % 61.4 % (test code = 770-8) IMM GRAN % (test code 0.40 % = 2897134759) LYMPH % (test code = 26.8 % 736-9) MONO % (test code = 7.3 % 5905-5) EOS % (test code = 3.6 % 713-8) BASO % (test code = 0.5 % 706-2) GRAN MAT x10^3(ANC) 4.65 10*3/uL 1.88-7.09 (test code = 0350400559) IMM GRAN x10^3 (test 0.03 10*3/uL 0.00-0.06 code = 5766699743) LYMPH x10^3 (test code 2.03 10*3/uL 1.32-3.29 = 731-0) MONO x10^3 (test code 0.55 10*3/uL 0.33-0.92 = 742-7) EOS x10^3 (test code = 0.27 10*3/uL 0.03-0.39 711-2) BASO x10^3 (test code 0.04 10*3/uL 0.01-0.07 = 704-7) Lab Interpretation Abnormal (test code = 50325-6) [facility]2020-[facility] 09:31:41 Test Item Value Reference Range Interpretation Comments POCT GLU (test code = 3852238443) 119 mg/dL 70-110 H Lab Interpretation (test code = Abnormal 08629-4) [facility] CenterSEDIMENTATION [id number] 02:23:15 Test Item Value Reference Range Interpretation Comments ESR (test code = See_Comment H [Automated message] 6586773913) The system [employer] generated this result transmitted ref erence range: 0 - 20 m m/HR. The reference r chelsie was not used to interpret this result as normal/abnor mal. Lab Interpretation (test Abnormal code = 58784-3) [facility] CenterTROP[facility]IN [id number] 01:26:18 Test Item Value Reference Range Interpretation Comments TROPONIN I (test 0.004 ng/mL See_Comment [Automated code = 1195517883) message] The system which generated this result transmitted reference range : <=0.034. The reference range was not used to interpret this result as normal/abnormal . NISHA (test code = Equal or Less than NISHA) 0.034 ng/ml---Normal ?Note: Cardiac troponin begins to rise 3-4 hours after the onset of ischemia. Repeat in 4-6 hours if the sample was drawn within 3-4 hours of the onset of the symptom and found normal. Between 0.035 and 0.120 ng/mL--- Borderline. Questionable myocardial injury or necrosis ? ?Note: Serial measurement may be necessary to confirm or exclude the diagnosis of myocardial injury or necrosis; Clinical correlation (symptoms, EKGs, imaging studies, and others) required; Repeat in 4-6 hours if clinically indicated. ? Equal or Higher than 0.121 ng/mL---Abnormal. Myocardial Injury or Necrosis Likely ? Biotin has been reported to cause a negative bias, interpret results relative to patient's use of biotin. ? Lab Interpretation Normal (test code = 19020-1) [facility] GLUCOSE (AUTOMATED)2020-09-05 21:59:05 Test Item Value Reference Range Interpretation Comments POCT GLU (test code = 2805297093) 119 mg/dL 70-110 H Lab Interpretation (test code = Abnormal 59099-7) [facility] GLUCOSE (AUTOMATED)2020-09-05 20:48:26 Test Item Value Reference Range Interpretation Comments POCT GLU (test code = 0656218662) 237 mg/dL 70-110 H Lab Interpretation (test code = Abnormal 30025-7) [facility] GLUCOSE (AUTOMATED)2020-09-05 20:48:26 Test Item Value Reference Range Interpretation Comments POCT GLU (test code = 2505851106) 208 mg/dL 70-110 H Lab Interpretation (test code = Abnormal 26965-3) [facility] CenterLIPID PANEL (39229)(TOTAL CHOLESTEROL, TRIGLYCERIDES, HDL)2020-09-05 20:09:59 Test Item Value Reference Range Interpretation Comments CHOL (test code = 175 mg/dL 120-200 2399366231) HDL (test code = 29 mg/dL >50 L 6036213742) HDLC RATIO (test code = See_Comment H [Au tomated message] 9586793533) The system [employer] generated this result transmit anthony reference range : <=4.5. The refe rence range was not u sed to interpret th is result as normal/abnormal . TRIG (test code = 359 mg/dL 30-170 H 8149170827) LDL CHOL (test code = 74 mg/dL See_Comment [Auto mated message] 76588-0) The system [employer] generated this result transmit anthony reference range : <=160. The refe rence range was not u sed to interpret th is result as normal/abnormal . VLDL (test code = 72 mg/dL 5-60 H 7811418180) Lab Interpretation (test Abnormal code = 32124-9) [facility] CenterVIT[facility]IN B12, [id number] 19:54:18 Test Item Value Reference Range Interpretation Comments VIT B12 (test code = 589 pg/mL 240-930 0514322722) NISAH (test code = NISHA) Biotin has been reported to cause a positive bias, interpret results relative to patient's use of biotin. Lab Interpretation (test Normal code = 94863-1) [facility] CenterPROCALCITONIN2021-04-10 16:28:13 Test Item Value Reference Range Interpretation Comments Procalcitonin (test 0.02 ng/mL <0.07 code = 3355440858) NISHA (test code = NISHA) INTERPRETATION OF PROCALCITONIN RESULTS IN ADULTS >= 18 YEARS OF AGE Initiation and discontinuation of antibiotics on patients with suspected or confirmed Lower Respiratory Tract Infection in Adults >= 18 years of age. + +-------- --------+ + -----+|Procalcitonin |Interpretation ?|Antibiotic ? ? |Considerations ? |ng/mL ? | ?|recommendation | ? + +-------- --------+ + -----+| <0.1 ? | Bacterial ? ? ?| Strongly ? ? ?| ? | ?| infection very | discouraged ? | Overruling: ? | ?| unlikely ? ? ? | ? | ? Clinically unstable ? ? ? + +-------- --------+ + ? High risk for adverse ? ? | <0.25 ?| Bacterial ? ? ?| Discouraged ? | ? outcome ? | ?| infection ? ? ?| ? | ? SEE IMPORTANT NOTE ?| ?| unlikely ? ? ? | ? | ? + +-------- --------+ + -----+| >=0.25 ? ? ? | Bacterial ? ? ?| Encouraged ? ?| ? | ?| infection ? ? ?| ? | ? | ?| likely ? | ? | Consider treatment failure ?+ +------- ---------+ -+ if levels does not decrease | >0.5 ? | Bacterial ? ? ?| Strongly ? ? ?| appropriately ? | ?| infection very | encouraged ? ?| ? | ?| likely ? | ? | ? + +-------- --------+ + -----+ Discontinuation of antibiotics in high-acuity patients with suspected or confirmed sepsis in Adults >= 18 years of age. + +-------- --------+ + -----+|Procalcitonin |Interpretation ?|Antibiotic ? ? |Considerations ? |ng/mL ? | ?|recommendation | ? + +-------- --------+ + -----+| <0.25 ?| Bacterial ? ? ?| Strongly ? ? ?| ? | ?| infection very | discouraged ? | Overruling: ? | ?| unlikely ? ? ? | ? | ? Clinically unstable ? ? ? + +-------- --------+ + ? High risk for adverse ? ? | <0.5 or drop | Bacterial ? ? ?| Discouraged ? | ? outcome ? | >80% from ? ?| infection ? ? ?| ? | ? SEE IMPORTANT NOTE ?| highest PCT ?| unlikely ? ? ? | ? | ? | level ?| ?| ? | ? + +-------- --------+ + -----+| >=0.5 ?| Bacterial ? ? ?| Encouraged ? ?| ? | ?| infection ? ? ?| ? | ? | ?| likely ? | ? | Consider treatment failure ?+ +------- ---------+ -+ if levels does not decrease | >1.0 ? | Bacterial ? ? ?| Strongly ? ? ?| appropriately ? | ?| infection very | encouraged ? ?| ? | ?| likely ? | ? | ? + +-------- --------+ + -----+ Percentage of drop of Procalcitonin calculation for Discontinuation of antibiotics in high-acuity patients with suspected or confirmed sepsis in Adults >= 18 years of age. ? Procalcitonin highest{}-Procalcitonin current{}Delta Procalcitonin = x100% ? Procalcitonin current {} IMPORTANT NOTE: Procalcitonin may be elevated without bacterial infection by physiologic stress related to trauma, torres, chronic dialysis, metastatic cancer, surgery in the past seven days, malaria, some fungal infections, and some forms of vasculitis. The interpretation algorithm may not apply to patients with immunosuppression (equivalent of >10 mg of prednisone daily), HIV with CD4 cell count < 350 cells/mm3, active malignancy on systemic chemotherapy, solid organ transplant or hematopoietic stem cell transplantation, or hospital acquired pneumonia. Additionally, some clinical trials of procalcitonin have excluded patients with shock requiring vasopressor use, acute respiratory failure requiring mechanical ventilation, or those with known lung abscess/empyema. For further information please refer to:[email or web address] Lab Interpretation Normal (test code = 66945-6) [facility] CenterGLYCOSYLATED HEMOGLOBIN (A1C)2020-09-05 14:17:09 Test Item Value Reference Range Interpretation Comments HGB A1C (test code = >14.0 4.0-6.0 H 4548-4) NISHA (test code = NISHA) %A1C (NGSP) Interpretation (ADA)4.8-5.6 ? ? Normal or (Non-Diabetic Range)5.7-6.4 ? ? Increased Risk (Pre-Diabetic)>6.5 ?Diabetes Indicated Lab Interpretation Abnormal (test code = 37693-5) [facility] CenterTR[facility]IN [id number] 12:34:46 Test Item Value Reference Range Interpretation Comments TROPONIN I (test 0.006 ng/mL See_Comment [Automated code = 2960095230) message] The system which generated this result transmitted reference range : <=0.034. The reference range was not used to interpret this result as normal/abnormal . NISHA (test code = Equal or Less than NISHA) 0.034 ng/ml---Normal ?Note: Cardiac troponin begins to rise 3-4 hours after the onset of ischemia. Repeat in 4-6 hours if the sample was drawn within 3-4 hours of the onset of the symptom and found normal. Between 0.035 and 0.120 ng/mL--- Borderline. Questionable myocardial injury or necrosis ? ?Note: Serial measurement may be necessary to confirm or exclude the diagnosis of myocardial injury or necrosis; Clinical correlation (symptoms, EKGs, imaging studies, and others) required; Repeat in 4-6 hours if clinically indicated. ? Equal or Higher than 0.121 ng/mL---Abnormal. Myocardial Injury or Necrosis Likely ? Biotin has been reported to cause a negative bias, interpret results relative to patient's use of biotin. ? Lab Interpretation Normal (test code = 34908-3) [facility] CenterN-TERMINAL [id number] 12:31:45 Test Item Value Reference Range Interpretation Comments NT-proBNP (test code 465 pg/mL See_Comment H [Autom ated = 3144549540) message] The system which generated this result transmitted reference range : <=125. The reference range was not used to interpret this result as normal/abnormal . NISHA (test code = NISHA) Biotin has been reported to cause a negative bias, interpret results relative to patient's use of biotin. Lab Interpretation Abnormal (test code = 43985-0) [facility] CenterMAGNESIUM2021-04-10 12:23:24 Test Item Value Reference Range Interpretation Comments MAGNESIUM (test code = 8542729113) 1.2 mg/dL 1.7-2.4 L Lab Interpretation (test code = Abnormal 50559-7) [facility] CenterCOMP[facility]ABOLIC PANEL (99156)2020-09-05 12:23:06 Test Item Value Reference Range Interpretation Comments NA (test code = 138 mmol/L 135-145 8239024420) K (test code = 3.0 mmol/L 3.5-5.0 L 4477142079) CL (test code = 102 mmol/L 98-108 2531737361) CO2 TOTAL (test code = 28 mmol/L 23-31 3746254086) AGAP (test code = 2-16 9157690209) BUN (test code = 11 mg/dL 7-23 1828594206) GLUCOSE (test code = 172 mg/dL 70-110 H 3665921524) CREATININE (test code = 0.60 mg/dL 0.50-1.04 9688693563) TOTAL BILI (test code = 0.5 mg/dL 0.1-1.5 9115459270) CALCIUM (test code = 8.0 mg/dL 8.6-10.6 L 1246731728) T PROTEIN (test code = 5.9 g/dL 6.3-8.2 L 3303444492) ALBUMIN (test code = 3.2 g/dL 3.5-5.0 L 4577499775) ALK PHOS (test code = 97 U/L 34-122 2677259293) ALTv (test code = 17 U/L 5-35 1742-6) AST(SGOT) (test code = 21 U/L 13-40 6070688767) eGFR (test code = mL/min/1.73m2 6068117216) NISHA (test code = NISHA) Association of Glomerular Filtration Rate (GFR) and Staging of Kidney Disease* + --+ --+ ------+| GFR (mL/min/1.73 m2) ?| With Kidney Damage ?| ?Without Kidney Damage+ --------+ --------+ +| ?>90 ?| ?Stage one ?| ? Normal ?+ ---+ ---+ -------+| ?60-89 ?| ?Stage two ?| ? Decreased GFR ? + --+ --+ ------+| ?30-59 ?| ?Stage three ?| ? Stage three ? + --+ --+ ------+| ?15-29 ?| ?Stage four ? | ? Stage four ?+ ---+ ---+ -------+| ?<15 (or dialysis) ? ?| ?Stage five ? | ? Stage five ?+ ---+ ---+ -------+ *Each stage assumes the associated GFR level has been in effect for at least three months. ?Stages 1 to 5, with or without kidney disease, indicate chronic kidney disease. Notes: Determination of stages one and two (with eGFR >59mL/min/1.73 m2) requires estimation of kidney damage for at least three months as defined by structural or functional abnormalities of the kidney, manifested by either:Pathological abnormalities or Markers of kidney damage (including abnormalities in the composition of the blood or urine or abnormalities in imaging tests). Lab Interpretation Abnormal (test code = 02043-4) [facility] CenterCREATINE [id number] 12:22:45 Test Item Value Reference Range Interpretation Comments CK (test code = 2568174481) 39 U/L 33-194 Lab Interpretation (test code = Normal 30725-8) [facility] CenterPROTHROMBIN TIME / [id number] 11:59:05 Test Item Value Reference Range Interpretation Comments PROTIME PATIENT (test See_Comment [Auto mated message] code = 5964-2) The system [employer] generated this result transmitted ref erence range: 12.0 - 1 4.7 Seconds. The re ference range was not u sed to interpret this result as normal/abnor mal. INR (test code = 6301-6) Nor mal INR <1.1; Warfarin Therap eutic range 2.0 to 3. 0 or 2.5 to 3.5, dep ending upon the indica tions. Lab Interpretation (test Normal code = 68224-0) [facility] CenterCT ABDOMEN PEL[facility] WO [id number] 11:36:381. 3-4 mm, bilateral nonobstructing renal stones are seen.2. Otherwise, no acute finding. RL: [id number] ORDERING PHYSICIAN: ANASTASIA GIRALDO ABDOMEN AND PELVIS CT WITHOUT INTRAVENOUS CONTRAST. DATE: ?09/05/2020 4:30 AM CLINICAL INDICATIONS: ?Flankpain, kidney stone suspected TECHNIQUE: ?Helical computed tomographic images of the abdomen and pelviswere obtained without intravenous contrast. The CT was obtained using ALARAguidelines, per department protocol. COMPARISON: ?None available FINDINGS: ?Prior median sternotomy with presumed coronary artery stenting,incompletely imaged. Lung bases are clear. Liver, gallbladder, spleen, pancreas and adrenal glands are normal. 3-4 mm,bilateral nonobstructing renal stones are seen. No ureteral or bladderstones are seen. Bladder is moderately distended. Mild bladder wallthickening is seen. No dilated bowel loops are seen. There is no bowel obstruction. Appendix isnormal. There is mild to moderate stoolin the colon. There is no free air,free fluid or adenopathy. Uterus and ovaries are normal on CT. Mild aortic atherosclerosis is seen. Right common iliac artery stent seen.Right common femoral artery stent is also noted. Osseous structures are normal. No lytic or blastic lesions are seen. [facility], Radiant Results Inft User - 09/05/2020 6:37 AM CDTORDERING PHYSICIAN: ANASTASIA GIRALDOABDOMEN AND PELVIS CTWITHOUT INTRAVENOUS CONTRAST.DATE: 09/05/2020 4:30 AMCLINICAL INDICATIONS: Flank pain, kidney stonesuspected TECHNIQUE: Helical computed tomographic images of the abdomen and pelviswere obtained without intravenous contrast. The CT was obtained using ALARAguidelines, per department protocol.COMPARISON: None availableFINDINGS: Prior median sternotomy with presumed coronary artery stenting,incompletely imaged. Lung bases are clear.Liver, gallbladder, spleen, pancreas and adrenal glands are normal. 3-4 mm,bilateral nonobstructing renal stones are seen. No ureteral or bladderstones are seen. Bladder is moderately distended. Mild bladder wallthickening is seen.No dilated bowel loops are seen. There is no bowel obstruction. Appendix isnormal. There is mild to moderate stool in the colon. There is no free air,free fluid or adenopathy. Uterus and ovaries are normal on CT.Mild aortic atherosclerosisis seen. Right common iliac artery stent seen.Right common femoral artery stent is also noted.Osseous structures are normal. No lytic or blastic lesions are seen.IMPRESSION1. 3-4 mm, bilateral nonobstructing renal stones are seen.2. Otherwise, no acute finding.RL: [id number] [facility] WITH [id number] 11:29:17 Test Item Value Reference Range Interpretation Comments WBC (test code = See_Comment [Automated 6690-2) message] The sy stem which generated this result transmitted reference range : 4.30 - 11.10 10*3/?L. The reference range was not used to interpret this result as normal/abnormal . RBC (test code = See_Comment [Automated 789-8) message] The sy stem which generated this result transmitted reference range : 3.93 - 5.25 10*6/?L. The reference range was not used to interpret this result as normal/abnormal . HGB (test code = 13.5 g/dL 11.6-15.0 718-7) HCT (test code = 38.0 % 35.7-45.2 4544-3) MCV (test code = 85.0 fL 80.6-95.5 787-2) MCH (test code = 30.2 pg 25.9-32.8 785-6) MCHC (test code = 35.5 g/dL 31.6-35.1 H 786-4) RDW-SD (test code = 38.2 fL 39.0-49.9 L 60410-0) RDW-CV (test code = 12.4 % 12.0-15.5 788-0) PLT (test code = See_Comment [Automated 777-3) message] The sy stem which generated this result transmitted reference range : 166 - 358 10*3/ ?L. The reference r chelsie was not used to interpret this result as normal/abnormal . MPV (test code = 10.9 fL 9.5-12.9 18954-2) NRBC/100 WBC (test See_Comment [Automat ed code = 3566211172) message] The system which generated this result transmitted reference range : 0.0 - 10.0 /100 WBCs. The refer ence range was not u sed to interpret th is result as normal/abnormal . NRBC x10^3 (test code <0.01 See_Comment [Auto mated = 2359661706) message] The s ystem which generated this result transmitted reference range : 10*3/?L. The reference range was not used to interpret this result as normal/abnormal . GRAN MAT (NEUT) % 61.7 % (test code = 770-8) IMM GRAN % (test code 0.40 % = 2826543353) LYMPH % (test code = 26.7 % 736-9) MONO % (test code = 7.7 % 5905-5) EOS % (test code = 3.0 % 713-8) BASO % (test code = 0.5 % 706-2) GRAN MAT x10^3(ANC) 5.11 10*3/uL 1.88-7.09 (test code = 2206329249) IMM GRAN x10^3 (test 0.03 10*3/uL 0.00-0.06 code = 2166852863) LYMPH x10^3 (test code 2.21 10*3/uL 1.32-3.29 = 731-0) MONO x10^3 (test code 0.64 10*3/uL 0.33-0.92 = 742-7) EOS x10^3 (test code = 0.25 10*3/uL 0.03-0.39 711-2) BASO x10^3 (test code 0.04 10*3/uL 0.01-0.07 = 704-7) Lab Interpretation Abnormal (test code = 64692-5) [facility]ATING [id number] 10:36:10 Test Item Value Reference Range Interpretation Comments TSH (test code = See_Comment [Automated message] 5654017177) The system [employer] generated this result transmitted ref erence range: 0.45 - 4 .70 mIU/L. The refe rence range was not u sed to interpret this result as normal/abnor mal. Lab Interpretation (test Normal code = 65909-3) [facility] CenterMAGNESIUM2021-04-10 10:04:49 Test Item Value Reference Range Interpretation Comments MAGNESIUM (test code = 2073088519) 1.3 mg/dL 1.7-2.4 L Lab Interpretation (test code = Abnormal 06154-1) [facility] CenterPHOSPHORUS2021-04-10 10:04:49 Test Item Value Reference Range Interpretation Comments PHOSPHORUS (test code = 3786448134) 3.7 mg/dL 2.5-5.0 Lab Interpretation (test code = Normal 73508-4) [facility] CenterCOVID-19 (ID NOW RAPID TESTING)2020-09-05 06:06:14 Test Item Value Reference Range Interpretation Comments SARS-CoV-2 Rapid ID NOW Not Detected Not Detected (test code = 78076-8) NISHA (test code = NISHA) ID NOW COVID-19 Assay is an isothermal nucleic acid amplification test intended for the qualitative detection of nucleic acid from SARS-CoV-2 viral RNA in nasopharyngeal (CHILD CARE PROVIDER) specimens. It is used under Emergency Use Authorization (EUA) by FDA. The limit of detection (LOD) of the assay is 125 Genome Equivalents/mL. A positive result is indicative of the presence of SARS-CoV-2 RNA. ?Clinical correlation with patient history and other diagnostic information is necessary to determine patient infection status. A negative (Not Detected) result does not preclude SARS-CoV-2 infection. In patients with clinical symptoms and other tests that are consistent with SARS-CoV-2 infection, negative results should be treated as presumptive negative and a new specimen should be tested with alternative PCR molecular test. Invalid: Please collect a new specimen for repeat patient testing if clinically indicated. Lab Interpretation Normal (test code = 21315-2) [facility] CenterPO[facility] (AUT[facility]ATED)2020-09-05 04:27:52 Test Item Value Reference Range Interpretation Comments POCT GLU (test code = 8906924514) 463 mg/dL 70-110 HH Lab Interpretation (test code = Abnormal 75157-8) [facility] CenterTROPONIN [id number] 03:44:02 Test Item Value Reference Range Interpretation Comments TROPONIN I (test 0.004 ng/mL See_Comment [Automated code = 9305354370) message] The system which generated this result transmitted reference range : <=0.034. The reference range was not used to interpret this result as normal/abnormal . NISHA (test code = Equal or Less than NISHA) 0.034 ng/ml---Normal ?Note: Cardiac troponin begins to rise 3-4 hours after the onset of ischemia. Repeat in 4-6 hours if the sample was drawn within 3-4 hours of the onset of the symptom and found normal. Between 0.035 and 0.120 ng/mL--- Borderline. Questionable myocardial injury or necrosis ? ?Note: Serial measurement may be necessary to confirm or exclude the diagnosis of myocardial injury or necrosis; Clinical correlation (symptoms, EKGs, imaging studies, and others) required; Repeat in 4-6 hours if clinically indicated. ? Equal or Higher than 0.121 ng/mL---Abnormal. Myocardial Injury or Necrosis Likely ? Biotin has been reported to cause a negative bias, interpret results relative to patient's use of biotin. ? Lab Interpretation Normal (test code = 50637-5) [facility] CenterN-TERMINAL [id number] 03:40:44 Test Item Value Reference Range Interpretation Comments NT-proBNP (test code 351 pg/mL See_Comment H [Autom ated = 3763975532) message] The system which generated this result transmitted reference range : <=125. The reference range was not used to interpret this result as normal/abnormal . NISHA (test code = NISHA) Biotin has been reported to cause a negative bias, interpret results relative to patient's use of biotin. Lab Interpretation Abnormal (test code = 32570-6) [facility] CenterURINALYSIS2021-04-10 03:36:15 Test Item Value Reference Range Interpretation Comments APPEARANCE (test code = Hazy Clear A 0033379766) COLOR (test code = Yellow Yellow 8860610880) PH (test code = 4.8-8.0 0485345720) SP GRAVITY (test code = 1.003-1.030 1070507695) GLU U QUAL (test code = 500 mg/dL Normal A 2991653619) BLOOD (test code = Negative Negative 5192004231) KETONES (test code = Negative Negative 3645353629) PROTEIN (test code = Negative Negative 2887-8) UROBILIN (test code = Normal Normal 7886695749) BILIRUBIN (test code = Negative Negative 6320376016) NITRITE (test code = Positive Negative A 0728484716) LEUK JOSEFA (test code = 75/uL Negative A 4264505523) RBC/HPF (test code = See_Comment [Autom ated message] 5767731326) The system [employer] generated this result transmit anthony reference range : 0 - 3 HPF. The refe rence range was not u sed to interpret th is result as normal/abnormal . WBC/HPF (test code = See_Comment H [Autom ated message] 2979291113) The system [employer] generated this result transmit anthony reference range : 0 - 5 HPF. The refe rence range was not u sed to interpret th is result as normal/abnormal . BACTERIA (test code = Many Negative A 5814952840) MUCOUS (test code = Slight Negative LPF A 4527831177) SQ EPITH (test code = HPF 5320579361) YEAST BUD (test code = See_Comment H [Aut omated message] 6744472062) The system [employer] generated this result transmit anthony reference range : <=1 HPF. The refere nce range was not u sed to interpret th is result as normal/abnormal . Lab Interpretation (test Abnormal code = 06014-2) [facility] CenterLIPASE2021-04-10 03:31:20 Test Item Value Reference Range Interpretation Comments LIPASE (test code = 5485211454) 121 U/L 0-220 Lab Interpretation (test code = Normal 19504-7) [facility] CenterCOM. METABOLIC PANEL (75078)2020-09-05 03:14:37 Test Item Value Reference Range Interpretation Comments NA (test code = 130 mmol/L 135-145 L 7541371575) K (test code = 3.3 mmol/L 3.5-5.0 L 1986298870) CL (test code = 90 mmol/L 98-108 L 6733639575) CO2 TOTAL (test code = 29 mmol/L 23-31 7804565908) AGAP (test code = 2-16 9569850302) BUN (test code = 13 mg/dL 7-23 2607968549) GLUCOSE (test code = 605 mg/dL 70-110 HH 5975040560) CREATININE (test code = 0.68 mg/dL 0.50-1.04 3623003280) TOTAL BILI (test code = 0.7 mg/dL 0.1-1.9 4889068395) CALCIUM (test code = 8.6 mg/dL 8.6-10.6 0228768052) T PROTEIN (test code = 7.3 g/dL 6.3-8.2 9965672608) ALBUMIN (test code = 4.3 g/dL 3.5-5.0 3242641285) ALK PHOS (test code = 138 U/L 34-122 H 5146310702) ALTv (test code = 23 U/L 5-35 1742-6) AST(SGOT) (test code = 24 U/L 13-40 9883009487) eGFR (test code = mL/min/1.73m2 7255802075) NISHA (test code = NISHA) Association of Glomerular Filtration Rate (GFR) and Staging of Kidney Disease* + --+ --+ ------+| GFR (mL/min/1.73 m2) ?| With Kidney Damage ?| ?Without Kidney Damage+ --------+ --------+ +| ?>90 ?| ?Stage one ?| ? Normal ?+ ---+ ---+ -------+| ?60-89 ?| ?Stage two ?| ? Decreased GFR ? + --+ --+ ------+| ?30-59 ?| ?Stage three ?| ? Stage three ? + --+ --+ ------+| ?15-29 ?| ?Stage four ? | ? Stage four ?+ ---+ ---+ -------+| ?<15 (or dialysis) ? ?| ?Stage five ? | ? Stage five ?+ ---+ ---+ -------+ *Each stage assumes the associated GFR level has been in effect for at least three months. ?Stages 1 to 5, with or without kidney disease, indicate chronic kidney disease. Notes: Determination of stages one and two (with eGFR >59mL/min/1.73 m2) requires estimation of kidney damage for at least three months as defined by structural or functional abnormalities of the kidney, manifested by either:Pathological abnormalities or Markers of kidney damage (including abnormalities in the composition of the blood or urine or abnormalities in imaging tests). Lab Interpretation Abnormal (test code = 61295-2) [facility] WITH [id number] 03:03:56 Test Item Value Reference Range Interpretation Comments WBC (test code = See_Comment [Automated 7484-2) message] The sy stem which generated this result transmitted reference range : 4.30 - 11.10 10*3/?L. The reference range was not used to interpret this result as normal/abnormal . RBC (test code = See_Comment [Automated 446-2) message] The sy stem which generated this result transmitted reference range : 3.93 - 5.25 10*6/?L. The reference range was not used to interpret this result as normal/abnormal . HGB (test code = 15.3 g/dL 11.6-15.0 H 718-7) HCT (test code = 43.7 % 35.7-45.2 4544-3) MCV (test code = 87.8 fL 80.6-95.5 787-2) MCH (test code = 30.7 pg 25.9-32.8 785-6) MCHC (test code = 35.0 g/dL 31.6-35.1 786-4) RDW-SD (test code = 40.1 fL 39.0-49.9 17931-4) RDW-CV (test code = 12.7 % 12.0-15.5 788-0) PLT (test code = See_Comment H [Automated 777-3) message] The sy stem which generated this result transmitted reference range : 166 - 358 10*3/ ?L. The reference r chelsie was not used to interpret this result as normal/abnormal . MPV (test code = 11.0 fL 9.5-12.9 51749-3) NRBC/100 WBC (test See_Comment [Automat ed code = 2954921474) message] The system which generated this result transmitted reference range : 0.0 - 10.0 /100 WBCs. The refer ence range was not u sed to interpret th is result as normal/abnormal . NRBC x10^3 (test code <0.01 See_Comment [Auto mated = 2122928215) message] The s ystem which generated this result transmitted reference range : 10*3/?L. The reference range was not used to interpret this result as normal/abnormal . GRAN MAT (NEUT) % 66.6 % (test code = 770-8) IMM GRAN % (test code 0.40 % = 5914290634) LYMPH % (test code = 23.7 % 736-9) MONO % (test code = 6.1 % 5905-5) EOS % (test code = 2.7 % 713-8) BASO % (test code = 0.5 % 706-2) GRAN MAT x10^3(ANC) 5.00 10*3/uL 1.88-7.09 (test code = 1205244805) IMM GRAN x10^3 (test 0.03 10*3/uL 0.00-0.06 code = 9719294268) LYMPH x10^3 (test code 1.78 10*3/uL 1.32-3.29 = 731-0) MONO x10^3 (test code 0.46 10*3/uL 0.33-0.92 = 742-7) EOS x10^3 (test code = 0.20 10*3/uL 0.03-0.39 711-2) BASO x10^3 (test code 0.04 10*3/uL 0.01-0.07 = 704-7) Lab Interpretation Abnormal (test code = 90035-4) [facility] VENOUS BLOOD [id number] 02:38:19 Test Item Value Reference Range Interpretation Comments PH (test code = 7.32-7.42 5097614766) PCO2 JUSTIN (test code = See_Comment [Auto mated message] 4381244092) The system [employer] generated this result transmitted ref erence range: 41 - 51 mmHg. The reference r chelsie was not used to interpret this result as normal/abnor mal. PO2 JUSTIN (test code = See_Comment [Autom ated message] 6455554216) The system [employer] generated this result transmitted ref erence range: 25 - 40 mmHg. The reference r chelsie was not used to interpret this result as normal/abnor mal. HCO3 JUSTIN (test code = See_Comment H [Auto mated message] 1005419542) The system [employer] generated this result transmitted ref erence range: 24 - 28 mEq/L. The reference r chelsie was not used to interpret this result as normal/abnor mal. AC VBE(BEAKER) (test mEq/L code = 8173201320) Lab Interpretation (test Abnormal code = 04527-0) [facility] GLUCOSE (AUTOMATED)2020-09-05 01:59:51 Test Item Value Reference Range Interpretation Comments POCT GLU (test code = 1837670142) 557 mg/dL 70-110 HH Lab Interpretation (test code = Abnormal 94384-6) [facility] HEMOGLOBIN A1C [id number] 21:16:00 Test Item Value Reference Range Interpretation Comments POCT HBA1C (test code = 4548-4) >14 4-6 A Lab Interpretation (test code = Abnormal 22344-9) [facility] A1C [id number] 21:16:00 Test Item Value Reference Range Interpretation Comments POCT HBA1C (test code = 4548-4) >14 4-6 A Lab Interpretation (test code = Abnormal 32970-1) [facility] CenterXR LUMBAR SPINE 4 [id number] 22:59:21XR LUMBAR SPINE 4 VW HISTORY: Female 49 years 49yo F with left hip area pain and left buttockpain. ?Known lumbar DDD/DJD. COMPARISON: None FINDINGS: The vertebral bodies are normal in height and in normal alignment. No more than minimal degenerative changes are present. Peak radiographsdemonstrate noevidence of spondylolysis. A small radiodensity overlying the lower pole of the left kidney probablyrepresents a small renal calculus.[facility], Radiant Results Inft User - 05/08/2020 5:00 PM CSTXR LUMBAR SPINE 4 VWHISTORY: Female 49 years 49yo F with left hip area pain and left buttockpain. Known lumbarDDD/DJD. COMPARISON: NoneFINDINGS:The vertebral bodies are normal in height and in normal alignment.N o more than minimal degenerative changes are present. Peak radiographsdemonstrate no evidence of spondylolysis.A small radiodensity overlying the lower pole of the left kidney probablyrepresents a small renal calculus.[facility] CenterXR HIPS 2 VW [id number] 22:34:44 Impression: 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 RL: ?[id number] Clinical indication: Severe acute on chronic hip pain status post fall 2days ago. Ordering Physician: ?RASHAD COSTA Findings: AP and frog-leg lateral views of the left hip are provided. Thereis diffuse narrowingof the left hip joint space with large marginalosteophytes noted. The visualized osseous structures are in normal anatomic alignment withoutevidence acute fracture, subluxation or dislocation. ?The subc utaneoustissue are unremarkable. No radiopaque foreign bodies are identified. [facility], Radiant ResultsInft User - 05/08/2020 4:35 PM CSTClinical indication: Severe acute on chronic hip pain status postfall 2days ago.Ordering Physician: RASHAD Whiting: AP and frog-leg lateral views of theleft hip are provided. Thereis diffuse narrowing of the left hip joint space with large marginalosteophytes noted.The visualized osseous structures are in normal anatomic alignment withoutevidence acute fracture, subluxation or dislocation. The subcutaneoustissue are unremarkable. No radiopaque foreign bodies are identified. IMPRESSIONImpression: 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RL: [id number] [facility]GC & CHLAMYDIA AMPLIFIED [id number] 20:07:00 Test Item Value Reference Range Interpretation Comments C. trachomatis Nucleic Negative Negative Acid (test code = 60395-5) N. gonorrhoeae Nucleic Negative Negative Acid (test code = 30610-7) NISHA (test code = NISHA) Reliable results are dependent on adequate specimen collection. ? A positive result obtained from a patient after therapeutic treatment cannot be interpreted as indicating the presence of viable organisms. ?For patients on whom a false positive result may have adverse psychosocial impact, retesting is advised. Indeterminate: Unable to generate a valid test result on this specimen. ?Please submit a new specimen for repeat testing if clinically indicated. Chlamydia trachomatis/Neisseria gonorrhoeae nucleic acid amplification testing (NAAT) has not been validated for medico-legal specimens (sexual abuse in anh-pubertal and pre-pubertal children, sexual assault, and legal cases). ?Culture for Chlamydia trachomatis and/or Neisseria gonorrhoeae from clinically appropriate sites is the method of choice in these cases. ? Results from this testing should be interpreted in conjunction with other laboratory and clinical data available to the clinician. Lab Interpretation Normal (test code = 91789-3) [facility] CenterTRICHOMONAS AMPLIFIED [id number] 20:02:00 Test Item Value Reference Range Interpretation Comments Trichomonas Nucleic Negative Negative Acid (test code = 45260-1) NISHA (test code = NISHA) Reliable results are dependent on adequate specimen collection. ? A positive result obtained from a patient after therapeutic treatment cannot be interpreted as indicating the presence of viable organisms. ?For patients on whom a false positive result may have adverse psychosocial impact, retesting is advised. Indeterminate: Unable to generate a valid test result on this specimen. ?Please submit a new specimen for repeat testing if clinically indicated. Trichomonas nucleic acid amplification testing (NAAT) has not been validated for medico-legal specimens (sexual abuse in anh-pubertal and pre-pubertal children, sexual assault, and legal cases). ?Wet mount with microscopic observation and culture for Trichomonas vaginalis from clinically appropriate sites are the methods of choice in these cases. Results from this testing should be interpreted in conjunction with other laboratory and clinical data available to the clinician. Lab Interpretation Normal (test code = 79288-2) [facility] CenterGAL ONLY - VAGINAL PATHOGENS BY NUCLEIC ACID [id number] 18:40:00 Test Item Value Reference Range Interpretation Comments Trichomonas vaginalis Negative Negative (test code = 3071923236) Nasrin species (test Positive Negative A code = 6945690468) Nasrin glabrata (test Positive Negative A code = 93584-5) Bacterial Vaginosis Positive Negative A (test code = 53857-5) NISHA (test code = NISHA) Reliable results are dependent on adequate specimen collection. This test detects Trichomonas vaginalis, Nasrin glabrata, and other Nasrin species (C. albicans, C. parapsilosis, C. dubliniensis, and C. tropicalis). ?The assay does not differentiate among organisms in the Nasrin species group. The Bacterial Vaginosis result is determined based on relative amounts of the following target organisms: Lactobacillus (L. gasseri, L. crispatus, and L. jensenii), Gardnerella vaginalis, and Atopobium vaginae. ?A single qualitative result is generated. ?This assay does not report individual organisms. A positive result obtained from a patient after therapeutic treatment cannot be interpreted as indicating the presence of viable organisms. ?For patients on whom a false positive result may have adverse psychosocial impact, retesting is advised. Indeterminate: Unable to generate a valid test result on this specimen. ?Please submit a new specimen for repeat testing if clinically indicated. This testing has not been validated for medico-legal purposes (sexual abuse in anh-pubertal and pre-pubertal children, sexual assault, and legal cases). Results from this testing should be interpreted in conjunction with other laboratory and clinical data available to the clinician. Lab Interpretation Abnormal (test code = 07137-8) [facility] CenterPOWI URINALYSIS W/O SPECIFIC [id number] 19:50:00 Test Item Value Reference Range Interpretation Comments POCT PH U (test code = 3254) 5 mg/dl 5-8 POCT U LEUK EST (test code = ++ Negative - Negative 3263) POCT U NIT (test code = 3262) neg Negative - Negative POCT U PROT (test code = 3259) trace Negative - Negative POCT U GLU (test code = 3256) Negative - Negative POCT U KETONE (test code = 3258) neg Negative - Negative POCT U BLD (test code = 3257) neg Negative - Negative [facility] URINALYSIS W/O SPECIFIC [id number] 19:50:00 Test Item Value Reference Range Interpretation Comments POCT PH U (test code = 3254) 5 mg/dl 5-8 POCT U LEUK EST (test code = ++ Negative - Negative 3263) POCT U NIT (test code = 3262) neg Negative - Negative POCT U PROT (test code = 3259) trace Negative - Negative POCT U GLU (test code = 3256) Negative - Negative POCT U KETONE (test code = 3258) neg Negative - Negative POCT U BLD (test code = 3257) neg Negative - Negative [facility] URINALYSIS W/O SPECIFIC [id number] 19:50:00 Test Item Value Reference Range Interpretation Comments POCT PH U (test code = 3254) 5 mg/dl 5-8 POCT U LEUK EST (test code = ++ Negative - Negative 3263) POCT U NIT (test code = 3262) neg Negative - Negative POCT U PROT (test code = 3259) trace Negative - Negative POCT U GLU (test code = 3256) Negative - Negative POCT U KETONE (test code = 3258) neg Negative - Negative POCT U BLD (test code = 3257) neg Negative - Negative [facility] HEMOGLOBIN A1C [id number] 22:01:00 Test Item Value Reference Range Interpretation Comments POCT HBA1C (test code = 4548-4) >14.0 4-6 [facility] HEMOGLOBIN A1C [id number] 22:01:00 Test Item Value Reference Range Interpretation Comments POCT HBA1C (test code = 4548-4) >14.0 4-6 [facility] CenterBI SCREENING MAMMOGRAM [id number] 22:41:31Examination:BI SCREENING MAMMOGRAM BILATERAL History:Patient is 49 year old and is seen for: ?Routine mammogram screening. Computer-aided detection (CAD) utilized. Comparisons: 11/06/2017 BI SCREENING MAMMOGRAM BILATERAL Findings:The breasts are almost entirely fatty. There is no evidence of suspicious masses, calcifications, or other abnormal findings. Impression:No mammographic evidence of malignancy. Recommendation:Annual mammographic follow- up BI-RADS Category: Both 1 - Negative I personally reviewed the study and agree with the resident's/fellow's report.[facility] 13:03:00 Test Item Value Reference Range Interpretation Comments POCT GLU (test code = 9113315510) 228 mg/dL 70-110 H Lab Interpretation (test code = Abnormal 80757-9) [facility] 10[facility]40:00 Test Item Value Reference Range Interpretation Comments MAGNESIUM (test code = 9562799619) 4.7 mg/dL 1.7-2.4 H Lab Interpretation (test code = Abnormal 56431-9) [facility] (NA, K, CL, CO2, GLUCOSE, BUN, CREATININE, CA)2019-08-16 10:36:00 Test Item Value Reference Range Interpretation Comments NA (test code = 135 mmol/L 135-145 8429548201) K (test code = 3.9 mmol/L 3.5-5 0413781743) CL (test code = 107 mmol/L 98-108 8066355959) CO2 TOTAL (test code = 22 mmol/L 23-31 L 8561639524) AGAP (test code = 2-16 1238974692) BUN (test code = 19 mg/dL 7-23 0545362913) GLUCOSE (test code = 236 mg/dL 70-110 H 9332553706) CREATININE (test code = 0.91 mg/dL 0.5-1.04 0901436207) CALCIUM (test code = 6.6 mg/dL 8.6-10.6 L 4698870909) eGFR Calculation mL/min/1.73m2 (Non-) (test code = 3054557353) eGFR Calculation mL/min/1.73m2 () (test code = 4978947171) NISHA (test code = NISHA) Association of Glomerular Filtration Rate (GFR) and Staging of Kidney Disease* + --+ --+ ------+| GFR (mL/min/1.73 m2) ?| With Kidney Damage ?| ?Without Kidney Damage+ --------+ --------+ +| ?>90 ?| ?Stage one ?| ? Normal ?+ ---+ ---+ -------+| ?60-89 ?| ?Stage two ?| ? Decreased GFR ? + --+ --+ ------+| ?30-59 ?| ?Stage three ?| ? Stage three ? + --+ --+ ------+| ?15-29 ?| ?Stage four ? | ? Stage four ?+ ---+ ---+ -------+| ?<15 (or dialysis) ? ?| ?Stage five ? | ? Stage five ?+ ---+ ---+ -------+ *Each stage assumes the associated GFR level has been in effect for at least three months. ?Stages 1 to 5, with or without kidney disease, indicate chronic kidney disease. Notes: Determination of stages one and two (with eGFR >59mL/min/1.73 m2) requires estimation of kidney damage for at least three months as defined by structural or functional abnormalities of the kidney, manifested by either:Pathological abnormalities or Markers of kidney damage (including abnormalities in the composition of the blood or urine or abnormalities in imaging tests). Lab Interpretation Abnormal (test code = 87078-1) [facility] WITH [id number] 10:13:00 Test Item Value Reference Range Interpretation Comments WBC (test code = See_Comment H [Automated 90-2) message] The sy stem which generated this result transmitted reference range : 4.30 - 11.10 10*3/?L. The reference range was not used to interpret this result as normal/abnormal . RBC (test code = See_Comment L [Automated 9-8) message] The sy stem which generated this result transmitted reference range : 3.93 - 5.25 10*6/?L. The reference range was not used to interpret this result as normal/abnormal . HGB (test code = 9.7 g/dL 11.6-15 L 718-7) HCT (test code = 29.0 % 35.7-45.2 L 4544-3) MCV (test code = 89.2 fL 80.6-95.5 787-2) MCH (test code = 29.8 pg 25.9-32.8 785-6) MCHC (test code = 33.4 g/dL 31.6-35.1 786-4) RDW-SD (test code = 41.6 fL 39-49.9 72897-0) RDW-CV (test code = 12.8 % 12-15.5 788-0) PLT (test code = See_Comment [Automated 777-3) message] The sy stem which generated this result transmitted reference range : 166 - 358 10*3/ ?L. The reference r chelsie was not used to interpret this result as normal/abnormal . MPV (test code = 10.6 fL 9.5-12.9 70993-5) NRBC/100 WBC (test See_Comment [Automat ed code = 5391406135) message] The system which generated this result transmitted reference range : 0.0 - 10.0 /100 WBCs. The refer ence range was not u sed to interpret th is result as normal/abnormal . NRBC x10^3 (test code <0.01 See_Comment [Auto mated = 2097320731) message] The s ystem which generated this result transmitted reference range : 10*3/?L. The reference range was not used to interpret this result as normal/abnormal . GRAN MAT (NEUT) % 77.9 % (test code = 770-8) IMM GRAN % (test code 0.80 % = 2226541885) LYMPH % (test code = 13.8 % 736-9) MONO % (test code = 6.8 % 5905-5) EOS % (test code = 0.3 % 713-8) BASO % (test code = 0.4 % 706-2) GRAN MAT x10^3(ANC) 8.66 10*3/uL 1.88-7.09 H (test code = 6975651587) IMM GRAN x10^3 (test 0.09 10*3/uL 0-0.06 H code = 3874829277) LYMPH x10^3 (test code 1.54 10*3/uL 1.32-3.29 = 731-0) MONO x10^3 (test code 0.76 10*3/uL 0.33-0.92 = 742-7) EOS x10^3 (test code = 0.03 10*3/uL 0.03-0.39 711-2) BASO x10^3 (test code 0.04 10*3/uL 0.01-0.07 = 704-7) Lab Interpretation Abnormal (test code = 84238-0) [facility] GLUCOSE (AUTOMATED)2019-08-16 09:54:00 Test Item Value Reference Range Interpretation Comments POCT GLU (test code = 1433291421) 218 mg/dL 70-110 H Lab Interpretation (test code = Abnormal 05730-2) [facility] GLUCOSE (AUTOMATED)2019-08-16 07:12:00 Test Item Value Reference Range Interpretation Comments POCT GLU (test code = 7577084303) 355 mg/dL 70-110 H Lab Interpretation (test code = Abnormal 15314-7) [facility] GLUCOSE (AUTOMATED)2019-08-16 05:06:00 Test Item Value Reference Range Interpretation Comments POCT GLU (test code = 9140559759) 457 mg/dL 70-110 HH Lab Interpretation (test code = Abnormal 01668-2) [facility] HEAD WO [id number] 00:55:12 No acute intracranial hemorrhage or mass effect. CT HEAD WO CONTRAST HISTORY: Neuro deficit(s), subacute , weakness. COMPARISON: None available. ? TECHNIQUE: Routine unenhanced brain CT. ? FINDINGS: No acute intracranial hemorrhage, extracerebral fluid collection, midlineshift or mass effect. No definite acute transcortical infarction. Intracranial atherosclerosis. Ventricles are normal. Cerebral volume is age appropriate. No depressed calvarial fracture. Visualized orbits are unremarkable. Visualized paranasal sinuses are essentially clear. [facility], Radiant Results Inft User - 08/15/2019 7:56PM CDTCT HEAD WO CONTRASTHISTORY: Neuro deficit(s), subacute , weakness. COMPARISON: None available. TECHNIQUE: Routine unenhanced brain CT. FINDINGS:No acute intracranial hemorrhage, extracerebral fluid collection, midlineshift or mass effect. No definite acute transcortical infarction. Intracranial atherosclerosis. Ventricles are normal. Cerebral volume is age appropriate. No depressed calvarialfracture. Visualized orbits are unremarkable. Visualized paranasal sinuses are essentially clear. IMPRESSIONNo acute intracranial hemorrhage or mass effect.[facility] GLUCOSE (AUTOMATED)2019-08-15 22:15:00 Test Item Value Reference Range Interpretation Comments POCT GLU (test code = 1371439518) 304 mg/dL 70-110 H Lab Interpretation (test code = Abnormal 11187-9) [facility] 21:04:00 Test Item Value Reference Range Interpretation Comments APTT Patient (test code See_Comment L [Au tomated message] = 3173-2) The system [employer] generated this result transmitted ref erence range: 26 - 36 Seconds. The reference range was not used to int erpret this result as normal/abnormal . Lab Interpretation (test Abnormal code = 29404-9) [facility] GLUCOSE (AUTOMATED)2019-08-15 20:41:00 Test Item Value Reference Range Interpretation Comments POCT GLU (test code = 3008991474) 274 mg/dL 70-110 H Lab Interpretation (test code = Abnormal 16180-3) [facility] GLUCOSE (AUTOMATED)2019-08-15 17:10:00 Test Item Value Reference Range Interpretation Comments POCT GLU (test code = 1866753166) 308 mg/dL 70-110 H Lab Interpretation (test code = Abnormal 23795-9) [facility] ACT LOW [id number] 15:44:00 Test Item Value Reference Range Interpretation Comments ACTLR (test code = See_Comment H [Automat ed message] 4023838217) The system [employer] generated this result transmitted ref erence range: 89 - 169 Seconds. The reference range was not used to int erpret this result as normal/abnormal . Lab Interpretation (test Abnormal code = 76762-2) [facility] ACT LOW [id number] 15:22:00 Test Item Value Reference Range Interpretation Comments ACTLR (test code = See_Comment H [Automat ed message] 8974966334) The system [employer] generated this result transmitted ref erence range: 89 - 169 Seconds. The reference range was not used to int erpret this result as normal/abnormal . Lab Interpretation (test Abnormal code = 67328-8) [facility] ACT LOW [id number] 14:44:00 Test Item Value Reference Range Interpretation Comments ACTLR (test code = See_Comment H [Automat ed message] 7370616498) The system [employer] generated this result transmitted ref erence range: 89 - 169 Seconds. The reference range was not used to int erpret this result as normal/abnormal . Lab Interpretation (test Abnormal code = 54270-1) [facility] ACT LOW [id number] 14:26:00 Test Item Value Reference Range Interpretation Comments ACTLR (test code = See_Comment H [Automat ed message] 2714523838) The system [employer] generated this result transmitted ref erence range: 89 - 169 Seconds. The reference range was not used to int erpret this result as normal/abnormal . Lab Interpretation (test Abnormal code = 48424-7) [facility] METABOLIC PANEL (NA, K, CL, CO2, GLUCOSE, BUN, CREATININE, CA)2019-08-15 11:06:00 Test Item Value Reference Range Interpretation Comments NA (test code = 134 mmol/L 135-145 L 1397275525) K (test code = 4.3 mmol/L 3.5-5 9189069519) CL (test code = 105 mmol/L 98-108 8180973348) CO2 TOTAL (test code = 22 mmol/L 23-31 L 6914019727) AGAP (test code = 2-16 8213421828) BUN (test code = 21 mg/dL 7-23 1097020289) GLUCOSE (test code = 410 mg/dL 70-110 H 0460761088) CREATININE (test code = 0.92 mg/dL 0.5-1.04 6705070810) CALCIUM (test code = 7.5 mg/dL 8.6-10.6 L 1390400044) eGFR Calculation mL/min/1.73m2 (Non-) (test code = 4450417117) eGFR Calculation mL/min/1.73m2 () (test code = 8538146459) NISHA (test code = NISHA) Association of Glomerular Filtration Rate (GFR) and Staging of Kidney Disease* + --+ --+ ------+| GFR (mL/min/1.73 m2) ?| With Kidney Damage ?| ?Without Kidney Damage+ --------+ --------+ +| ?>90 ?| ?Stage one ?| ? Normal ?+ ---+ ---+ -------+| ?60-89 ?| ?Stage two ?| ? Decreased GFR ? + --+ --+ ------+| ?30-59 ?| ?Stage three ?| ? Stage three ? + --+ --+ ------+| ?15-29 ?| ?Stage four ? | ? Stage four ?+ ---+ ---+ -------+| ?<15 (or dialysis) ? ?| ?Stage five ? | ? Stage five ?+ ---+ ---+ -------+ *Each stage assumes the associated GFR level has been in effect for at least three months. ?Stages 1 to 5, with or without kidney disease, indicate chronic kidney disease. Notes: Determination of stages one and two (with eGFR >59mL/min/1.73 m2) requires estimation of kidney damage for at least three months as defined by structural or functional abnormalities of the kidney, manifested by either:Pathological abnormalities or Markers of kidney damage (including abnormalities in the composition of the blood or urine or abnormalities in imaging tests). Lab Interpretation Abnormal (test code = 76857-4) [facility] 11:06:00 Test Item Value Reference Range Interpretation Comments MAGNESIUM (test code = 3520734001) 1.6 mg/dL 1.7-2.4 L Lab Interpretation (test code = Abnormal 68582-1) [facility] (for use with Heparin Practice Guideline). Note: Draw and Send all Lab STAT.2019-08-15 10:47:00 Test Item Value Reference Range Interpretation Comments APTT Patient (test code See_Comment H [Au tomated message] = 3173-2) The system [employer] generated this result transmitted ref erence range: 26 - 36 Seconds. The reference range was not used to int erpret this result as normal/abnormal . Lab Interpretation (test Abnormal code = 04591-8) [facility] WITH [id number] 10:46:00 Test Item Value Reference Range Interpretation Comments WBC (test code = See_Comment [Automated 6690-2) message] The sy stem which generated this result transmitted reference range : 4.30 - 11.10 10*3/?L. The reference range was not used to interpret this result as normal/abnormal . RBC (test code = See_Comment L [Automated 789-8) message] The sy stem which generated this result transmitted reference range : 3.93 - 5.25 10*6/?L. The reference range was not used to interpret this result as normal/abnormal . HGB (test code = 11.2 g/dL 11.6-15 L 718-7) HCT (test code = 33.3 % 35.7-45.2 L 4544-3) MCV (test code = 86.5 fL 80.6-95.5 787-2) MCH (test code = 29.1 pg 25.9-32.8 785-6) MCHC (test code = 33.6 g/dL 31.6-35.1 786-4) RDW-SD (test code = 39.1 fL 39-49.9 18637-3) RDW-CV (test code = 12.4 % 12-15.5 788-0) PLT (test code = See_Comment [Automated 777-3) message] The sy stem which generated this result transmitted reference range : 166 - 358 10*3/ ?L. The reference r chelsie was not used to interpret this result as normal/abnormal . MPV (test code = 10.9 fL 9.5-12.9 37467-3) NRBC/100 WBC (test See_Comment [Automat ed code = 5709911283) message] The system which generated this result transmitted reference range : 0.0 - 10.0 /100 WBCs. The refer ence range was not u sed to interpret th is result as normal/abnormal . NRBC x10^3 (test code <0.01 See_Comment [Auto mated = 5831095551) message] The s ystem which generated this result transmitted reference range : 10*3/?L. The reference range was not used to interpret this result as normal/abnormal . GRAN MAT (NEUT) % 80.6 % (test code = 770-8) IMM GRAN % (test code 0.50 % = 5924361291) LYMPH % (test code = 12.5 % 736-9) MONO % (test code = 5.8 % 5905-5) EOS % (test code = 0.4 % 713-8) BASO % (test code = 0.2 % 706-2) GRAN MAT x10^3(ANC) 8.94 10*3/uL 1.88-7.09 H (test code = 5964964808) IMM GRAN x10^3 (test 0.06 10*3/uL 0-0.06 code = 8886384582) LYMPH x10^3 (test code 1.39 10*3/uL 1.32-3.29 = 731-0) MONO x10^3 (test code 0.64 10*3/uL 0.33-0.92 = 742-7) EOS x10^3 (test code = 0.04 10*3/uL 0.03-0.39 711-2) BASO x10^3 (test code <0.03 0.01-0.07 = 704-7) Lab Interpretation Abnormal (test code = 34176-6) [facility] GLUCOSE (AUTOMATED)2019-08-15 09:48:00 Test Item Value Reference Range Interpretation Comments POCT GLU (test code = 6268941933) 319 mg/dL 70-110 H Lab Interpretation (test code = Abnormal 31395-6) [facility] GLUCOSE (AUTOMATED)2019-08-15 06:35:00 Test Item Value Reference Range Interpretation Comments POCT GLU (test code = 7786360591) 479 mg/dL 70-110 HH Lab Interpretation (test code = Abnormal 21265-9) [facility] GLUCOSE (AUTOMATED)2019-08-15 03:10:00 Test Item Value Reference Range Interpretation Comments POCT GLU (test code = 3369013956) 450 mg/dL 70-110 HH Lab Interpretation (test code = Abnormal 67390-6) [facility] (for use with Heparin Practice Guideline). Note: Draw and Send all Lab STAT.2019-08-15 02:31:00 Test Item Value Reference Range Interpretation Comments APTT Patient (test code See_Comment HH [Au tomated message] = 3173-2) The system whic h generated this result transmitted ref erence range: 26 - 36 Seconds. The reference range was not used to int erpret this result as normal/abnormal . Lab Interpretation (test Abnormal code = 06809-3) [facility] METABOLIC PANEL (NA, K, CL, CO2, GLUCOSE, BUN, CREATININE, CA)2019-08-15 02:30:00 Test Item Value Reference Range Interpretation Comments NA (test code = 131 mmol/L 135-145 L 7929052920) K (test code = 4.6 mmol/L 3.5-5 5294346382) CL (test code = 102 mmol/L 98-108 7007346430) CO2 TOTAL (test code = 21 mmol/L 23-31 L 7828724081) AGAP (test code = 2-16 1259486730) BUN (test code = 21 mg/dL 7-23 7640246504) GLUCOSE (test code = 479 mg/dL 70-110 HH 8279728408) CREATININE (test code = 1.08 mg/dL 0.5-1.04 H 9069669645) CALCIUM (test code = 7.3 mg/dL 8.6-10.6 L 0524959301) eGFR Calculation mL/min/1.73m2 (Non-) (test code = 1429084862) eGFR Calculation mL/min/1.73m2 () (test code = 5478015137) NISHA (test code = NISHA) Association of Glomerular Filtration Rate (GFR) and Staging of Kidney Disease* + --+ --+ ------+| GFR (mL/min/1.73 m2) ?| With Kidney Damage ?| ?Without Kidney Damage+ --------+ --------+ +| ?>90 ?| ?Stage one ?| ? Normal ?+ ---+ ---+ -------+| ?60-89 ?| ?Stage two ?| ? Decreased GFR ? + --+ --+ ------+| ?30-59 ?| ?Stage three ?| ? Stage three ? + --+ --+ ------+| ?15-29 ?| ?Stage four ? | ? Stage four ?+ ---+ ---+ -------+| ?<15 (or dialysis) ? ?| ?Stage five ? | ? Stage five ?+ ---+ ---+ -------+ *Each stage assumes the associated GFR level has been in effect for at least three months. ?Stages 1 to 5, with or without kidney disease, indicate chronic kidney disease. Notes: Determination of stages one and two (with eGFR >59mL/min/1.73 m2) requires estimation of kidney damage for at least three months as defined by structural or functional abnormalities of the kidney, manifested by either:Pathological abnormalities or Markers of kidney damage (including abnormalities in the composition of the blood or urine or abnormalities in imaging tests). Lab Interpretation Abnormal (test code = 29226-4) [facility] GLUCOSE (AUTOMATED)2019-08-15 01:59:00 Test Item Value Reference Range Interpretation Comments POCT GLU (test code = 6108912843) 471 mg/dL 70-110 HH Lab Interpretation (test code = Abnormal 62331-5) [facility] GLUCOSE (AUTOMATED)2019-08-14 22:49:00 Test Item Value Reference Range Interpretation Comments POCT GLU (test code = 9602774719) 399 mg/dL 70-110 H Lab Interpretation (test code = Abnormal 22045-9) [facility] GLUCOSE (AUTOMATED)2019-08-14 20:45:00 Test Item Value Reference Range Interpretation Comments POCT GLU (test code = 2921047223) 473 mg/dL 70-110 HH Lab Interpretation (test code = Abnormal 85602-3) [facility] use with [facility] Practice Guideline). Note: Draw and Send all Lab STAT.2019-08-14 19:52:00 Test Item Value Reference Range Interpretation Comments APTT Patient (test code = See_Comment [ Automated message] 3173-2) The system [employer] generated this result transmitted ref erence range: 26 - 36 Seconds. The re ference range was not u sed to interpret this result as normal/abnor mal. Lab Interpretation (test Normal code = 34547-7) [facility] GLUCOSE (AUTOMATED)2019-08-14 17:24:00 Test Item Value Reference Range Interpretation Comments POCT GLU (test code = 421 mg/dL 70-110 H Notifi ed Provider [id number]) Lab Interpretation (test Abnormal code = 17397-2) [facility] INFLUENZA A B RSV [id number] 16:21:00 Test Item Value Reference Range Interpretation Comments Influenza A virus by PCR (test code Negative Negative = 02999-4) Influenza B virus by PCR (test code Negative Negative = 78564-5) RSV by PCR (test code = 56947-8) Negative Negative Lab Interpretation (test code = Normal 95607-1) [facility]2019-08-14 14:00:00 Test Item Value Reference Range Interpretation Comments POCT GLU (test code = 9236529354) 314 mg/dL 70-110 H Lab Interpretation (test code = Abnormal 73805-0) [facility] METABOLIC PANEL (NA, K, CL, CO2, GLUCOSE, BUN, CREATININE, CA)2019-08-14 11:02:00 Test Item Value Reference Range Interpretation Comments NA (test code = 135 mmol/L 135-145 5524727994) K (test code = 4.4 mmol/L 3.5-5 8932112757) CL (test code = 106 mmol/L 98-108 7042426169) CO2 TOTAL (test code = 23 mmol/L 23-31 9528835301) AGAP (test code = 2-16 3208747229) BUN (test code = 15 mg/dL 7-23 5700947104) GLUCOSE (test code = 273 mg/dL 70-110 H 2152537702) CREATININE (test code = 1.04 mg/dL 0.5-1.04 7760013167) CALCIUM (test code = 7.5 mg/dL 8.6-10.6 L 3172220949) eGFR Calculation mL/min/1.73m2 (Non-) (test code = 3591562453) eGFR Calculation mL/min/1.73m2 () (test code = 5880766304) NISHA (test code = NISHA) Association of Glomerular Filtration Rate (GFR) and Staging of Kidney Disease* + --+ --+ ------+| GFR (mL/min/1.73 m2) ?| With Kidney Damage ?| ?Without Kidney Damage+ --------+ --------+ +| ?>90 ?| ?Stage one ?| ? Normal ?+ ---+ ---+ -------+| ?60-89 ?| ?Stage two ?| ? Decreased GFR ? + --+ --+ ------+| ?30-59 ?| ?Stage three ?| ? Stage three ? + --+ --+ ------+| ?15-29 ?| ?Stage four ? | ? Stage four ?+ ---+ ---+ -------+| ?<15 (or dialysis) ? ?| ?Stage five ? | ? Stage five ?+ ---+ ---+ -------+ *Each stage assumes the associated GFR level has been in effect for at least three months. ?Stages 1 to 5, with or without kidney disease, indicate chronic kidney disease. Notes: Determination of stages one and two (with eGFR >59mL/min/1.73 m2) requires estimation of kidney damage for at least three months as defined by structural or functional abnormalities of the kidney, manifested by either:Pathological abnormalities or Markers of kidney damage (including abnormalities in the composition of the blood or urine or abnormalities in imaging tests). Lab Interpretation Abnormal (test code = 67467-9) [facility] 11:02:00 Test Item Value Reference Range Interpretation Comments MAGNESIUM (test code = 8682069349) 1.6 mg/dL 1.7-2.4 L Lab Interpretation (test code = Abnormal 14153-7) [facility] (for use with Heparin Practice Guideline). Note: Draw and Send all Lab STAT.2019-08-14 10:34:00 Test Item Value Reference Range Interpretation Comments APTT Patient (test code = See_Comment [ Automated message] 3173-2) The system [employer] generated this result transmitted ref erence range: 26 - 36 Seconds. The re ference range was not u sed to interpret this result as normal/abnor mal. Lab Interpretation (test Normal code = 83124-9) [facility] [id number] 10:28:00 Test Item Value Reference Range Interpretation Comments WBC (test code = See_Comment [Automated 7811-2) message] The sy stem which generated this result transmitted reference range : 4.30 - 11.10 10*3/?L. The reference range was not used to interpret this result as normal/abnormal . RBC (test code = See_Comment [Automated 999-8) message] The sy stem which generated this result transmitted reference range : 3.93 - 5.25 10*6/?L. The reference range was not used to interpret this result as normal/abnormal . HGB (test code = 12.2 g/dL 11.6-15 718-7) HCT (test code = 36.9 % 35.7-45.2 4544-3) MCV (test code = 88.5 fL 80.6-95.5 787-2) MCH (test code = 29.3 pg 25.9-32.8 785-6) MCHC (test code = 33.1 g/dL 31.6-35.1 786-4) RDW-SD (test code = 41.0 fL 39-49.9 93921-7) RDW-CV (test code = 12.6 % 12-15.5 788-0) PLT (test code = See_Comment [Automated 777-3) message] The sy stem which generated this result transmitted reference range : 166 - 358 10*3/ ?L. The reference r chelsie was not used to interpret this result as normal/abnormal . MPV (test code = 10.3 fL 9.5-12.9 86169-8) NRBC/100 WBC (test See_Comment [Automat ed code = 1843530501) message] The system which generated this result transmitted reference range : 0.0 - 10.0 /100 WBCs. The refer ence range was not u sed to interpret th is result as normal/abnormal . NRBC x10^3 (test code <0.01 See_Comment [Auto mated = 3511666650) message] The s ystem which generated this result transmitted reference range : 10*3/?L. The reference range was not used to interpret this result as normal/abnormal . GRAN MAT (NEUT) % 63.5 % (test code = 770-8) IMM GRAN % (test code 0.30 % = 3642176977) LYMPH % (test code = 19.9 % 736-9) MONO % (test code = 6.3 % 5905-5) EOS % (test code = 9.7 % 713-8) BASO % (test code = 0.3 % 706-2) GRAN MAT x10^3(ANC) 6.48 10*3/uL 1.88-7.09 (test code = 5041372228) IMM GRAN x10^3 (test 0.03 10*3/uL 0-0.06 code = 1038877351) LYMPH x10^3 (test code 2.03 10*3/uL 1.32-3.29 = 731-0) MONO x10^3 (test code 0.64 10*3/uL 0.33-0.92 = 742-7) EOS x10^3 (test code = 0.99 10*3/uL 0.03-0.39 H 711-2) BASO x10^3 (test code 0.03 10*3/uL 0.01-0.07 = 704-7) Lab Interpretation Abnormal (test code = 74173-7) [facility] GLUCOSE (AUTOMATED)2019-08-14 01:29:00 Test Item Value Reference Range Interpretation Comments POCT GLU (test code = 6400823353) 236 mg/dL 70-110 H Lab Interpretation (test code = Abnormal 47567-6) [facility] (for use with Heparin Practice Guideline). Note: Draw and Send all Lab STAT.2019-08-13 23:18:00 Test Item Value Reference Range Interpretation Comments APTT Patient (test code = See_Comment [ Automated message] 3173-2) The system [employer] generated this result transmitted ref erence range: 26 - 36 Seconds. The re ference range was not u sed to interpret this result as normal/abnor mal. Lab Interpretation (test Normal code = 58451-6) [facility] GLUCOSE (AUTOMATED)2019-08-13 23:09:00 Test Item Value Reference Range Interpretation Comments POCT GLU (test code = 8411443968) 305 mg/dL 70-110 H Lab Interpretation (test code = Abnormal 40232-2) [facility] GLUCOSE (AUTOMATED)2019-08-13 19:29:00 Test Item Value Reference Range Interpretation Comments POCT GLU (test code = 0804575399) 310 mg/dL 70-110 H Lab Interpretation (test code = Abnormal 83302-9) [id number] 14:04:00 Test Item Value Reference Range Interpretation Comments TROPONIN I (test 0.012 ng/mL See_Comment [Automated code = 9613538015) message] The system which generated this result transmitted reference range : <=0.034. The reference range was not used to interpret this result as normal/abnormal . NISHA (test code = Equal or Less than NISHA) 0.034 ng/ml---Normal ?Note: Cardiac troponin begins to rise 3-4 hours after the onset of ischemia. Repeat in 4-6 hours if the sample was drawn within 3-4 hours of the onset of the symptom and found normal. Between 0.035 and 0.120 ng/mL--- Borderline. Questionable myocardial injury or necrosis ? ?Note: Serial measurement may be necessary to confirm or exclude the diagnosis of myocardial injury or necrosis; Clinical correlation (symptoms, EKGs, imaging studies, and others) required; Repeat in 4-6 hours if clinically indicated. ? Equal or Higher than 0.121 ng/mL---Abnormal. Myocardial Injury or Necrosis Likely ? Biotin has been reported to cause a negative bias, interpret results relative to patient's use of biotin. ? Lab Interpretation Normal (test code = 33909-8) [facility]2019-08-13 13:16:00 Test Item Value Reference Range Interpretation Comments POCT GLU (test code = 4099466566) 281 mg/dL 70-110 H Lab Interpretation (test code = Abnormal 81969-3) [facility] WITH [id number] 12:20:00 Test Item Value Reference Range Interpretation Comments WBC (test code = See_Comment H [Automated 2390-2) message] The sy stem which generated this result transmitted reference range : 4.30 - 11.10 10*3/?L. The reference range was not used to interpret this result as normal/abnormal . RBC (test code = See_Comment [Automated 349-8) message] The sy stem which generated this result transmitted reference range : 3.93 - 5.25 10*6/?L. The reference range was not used to interpret this result as normal/abnormal . HGB (test code = 13.5 g/dL 11.6-15 718-7) HCT (test code = 40.2 % 35.7-45.2 4544-3) MCV (test code = 87.8 fL 80.6-95.5 787-2) MCH (test code = 29.5 pg 25.9-32.8 785-6) MCHC (test code = 33.6 g/dL 31.6-35.1 786-4) RDW-SD (test code = 40.6 fL 39-49.9 32923-7) RDW-CV (test code = 12.7 % 12-15.5 788-0) PLT (test code = See_Comment [Automated 777-3) message] The sy stem which generated this result transmitted reference range : 166 - 358 10*3/ ?L. The reference r chelsie was not used to interpret this result as normal/abnormal . MPV (test code = 10.7 fL 9.5-12.9 92160-7) NRBC/100 WBC (test See_Comment [Automat ed code = 4544055844) message] The system which generated this result transmitted reference range : 0.0 - 10.0 /100 WBCs. The refer ence range was not u sed to interpret th is result as normal/abnormal . NRBC x10^3 (test code <0.01 See_Comment [Auto mated = 9516184293) message] The s ystem which generated this result transmitted reference range : 10*3/?L. The reference range was not used to interpret this result as normal/abnormal . GRAN MAT (NEUT) % 71.8 % (test code = 770-8) IMM GRAN % (test code 0.50 % = 8455613619) LYMPH % (test code = 12.3 % 736-9) MONO % (test code = 6.9 % 5905-5) EOS % (test code = 8.0 % 713-8) BASO % (test code = 0.5 % 706-2) GRAN MAT x10^3(ANC) 9.08 10*3/uL 1.88-7.09 H (test code = 4520442239) IMM GRAN x10^3 (test 0.06 10*3/uL 0-0.06 code = 2415266032) LYMPH x10^3 (test code 1.56 10*3/uL 1.32-3.29 = 731-0) MONO x10^3 (test code 0.87 10*3/uL 0.33-0.92 = 742-7) EOS x10^3 (test code = 1.01 10*3/uL 0.03-0.39 H 711-2) BASO x10^3 (test code 0.06 10*3/uL 0.01-0.07 = 704-7) Lab Interpretation Abnormal (test code = 58368-5) [facility] 09:19:00 Test Item Value Reference Range Interpretation Comments MAGNESIUM (test code = 2981544515) 1.5 mg/dL 1.7-2.4 L Lab Interpretation (test code = Abnormal 47430-0) [facility] 1 [id number] 08:54:25Impression: Moderate cardiomegaly without acute pulmonary process. Status post mediansternotomy. RL: 460 AFC: [id number] Indication: Chest pain Comparison: None Findings: Single AP view of the chest. The cardiopericardial silhouette is moderately enlarged. The patient is status post median sternotomy. Thelungs are clear bilaterally. The visualized bony thorax is intact. [facility], Radiant Results Inft User - 08/13/2019 3:55 AM CDTIndication: Chest painComparison: NoneFindings: Single AP view of the chest. The cardiopericardial silhouette ismoderately enlarged. The patient is status post median sternotomy. Thelungs are clear bilaterally. The visualized bony thorax is intact.IMPRESSIONImpression:Moderate cardiomegaly without acute pulmonary process. Status post mediansternotomy.RL: 460AFC: [id number] signed by Gemini Martins MD, PhD at 08/13/2019 3:54 AMUnOakBend Medical CenterGlycosylated Hemoglobin (A1C)2019-08-13 07:12:00 Test Item Value Reference Range Interpretation Comments HGB A1C (test code = 4548-4) 10.8 % 4-6 H Lab Interpretation (test code = Abnormal 56225-8) [facility] Center[facility]MINAL [id number] 06:39:00 Test Item Value Reference Range Interpretation Comments NT-proBNP (test code 384 pg/mL See_Comment H [Autom ated = 6954131956) message] The system which generated this result transmitted reference range : <=125. The reference range was not used to interpret this result as normal/abnormal . NISHA (test code = NISHA) Biotin has been reported to cause a negative bias, interpret results relative to patient's use of biotin. Lab Interpretation Abnormal (test code = 26702-1) [facility] [id number] 06:39:00 Test Item Value Reference Range Interpretation Comments TROPONIN I (test 0.008 ng/mL See_Comment [Automated code = 1851589754) message] The system which generated this result transmitted reference range : <=0.034. The reference range was not used to interpret this result as normal/abnormal . NISHA (test code = Equal or Less than NISHA) 0.034 ng/ml---Normal ?Note: Cardiac troponin begins to rise 3-4 hours after the onset of ischemia. Repeat in 4-6 hours if the sample was drawn within 3-4 hours of the onset of the symptom and found normal. Between 0.035 and 0.120 ng/mL--- Borderline. Questionable myocardial injury or necrosis ? ?Note: Serial measurement may be necessary to confirm or exclude the diagnosis of myocardial injury or necrosis; Clinical correlation (symptoms, EKGs, imaging studies, and others) required; Repeat in 4-6 hours if clinically indicated. ? Equal or Higher than 0.121 ng/mL---Abnormal. Myocardial Injury or Necrosis Likely ? Biotin has been reported to cause a negative bias, interpret results relative to patient's use of biotin. ? Lab Interpretation Normal (test code = 92567-4) [facility] (NA, K, CL, CO2, GLUCOSE, BUN, CREATININE, CA)2019-08-13 06:35:00 Test Item Value Reference Range Interpretation Comments NA (test code = 134 mmol/L 135-145 L 9251399114) K (test code = 4.1 mmol/L 3.5-5 2562988923) CL (test code = 102 mmol/L 98-108 1206321457) CO2 TOTAL (test code = 22 mmol/L 23-31 L 0026053860) AGAP (test code = 2-16 9675859182) BUN (test code = 23 mg/dL 7-23 5013891942) GLUCOSE (test code = 324 mg/dL 70-110 H 4580175905) CREATININE (test code = 1.07 mg/dL 0.5-1.04 H 8728928633) CALCIUM (test code = 8.4 mg/dL 8.6-10.6 L 7948027153) eGFR Calculation mL/min/1.73m2 (Non-) (test code = 3134163958) eGFR Calculation mL/min/1.73m2 () (test code = 8952733931) NISHA (test code = NISHA) Association of Glomerular Filtration Rate (GFR) and Staging of Kidney Disease* + --+ --+ ------+| GFR (mL/min/1.73 m2) ?| With Kidney Damage ?| ?Without Kidney Damage+ --------+ --------+ +| ?>90 ?| ?Stage one ?| ? Normal ?+ ---+ ---+ -------+| ?60-89 ?| ?Stage two ?| ? Decreased GFR ? + --+ --+ ------+| ?30-59 ?| ?Stage three ?| ? Stage three ? + --+ --+ ------+| ?15-29 ?| ?Stage four ? | ? Stage four ?+ ---+ ---+ -------+| ?<15 (or dialysis) ? ?| ?Stage five ? | ? Stage five ?+ ---+ ---+ -------+ *Each stage assumes the associated GFR level has been in effect for at least three months. ?Stages 1 to 5, with or without kidney disease, indicate chronic kidney disease. Notes: Determination of stages one and two (with eGFR >59mL/min/1.73 m2) requires estimation of kidney damage for at least three months as defined by structural or functional abnormalities of the kidney, manifested by either:Pathological abnormalities or Markers of kidney damage (including abnormalities in the composition of the blood or urine or abnormalities in imaging tests). Lab Interpretation Abnormal (test code = 82018-6) [facility] CenteraP[facility]2020-[facility] 06:07:00 Test Item Value Reference Range Interpretation Comments APTT Patient (test code = See_Comment [ Automated message] 3173-2) The system [employer] generated this result transmitted ref erence range: 26 - 36 Seconds. The re ference range was not u sed to interpret this result as normal/abnor mal. Lab Interpretation (test Normal code = 90313-1) [facility] CenterProthrombin Time / [id number] 06:07:00 Test Item Value Reference Range Interpretation Comments PROTIME PATIENT (test See_Comment [Auto mated message] code = 5964-2) The system [employer] generated this result transmitted ref erence range: 10.1 - 1 2.6 Seconds. The re ference range was not u sed to interpret this result as normal/abnor mal. INR (test code = 6301-6) Nor mal INR <1.1; Warfarin Therap eutic range 2.0 to 3. 0 or 2.5 to 3.5, dep ending upon the indica tions. Lab Interpretation (test Normal code = 54582-9) [facility]"
[2021-04-13] MEDS ORDERED: NA CHLORIDE 0.9% 1,000 ML ONE (21:58)
[2021-04-13] MEDS ORDERED: ONDANSETRON 4 MG/2 ML VIAL ONE ×2 (21:58→23:36)
[2021-04-13] MEDS ORDERED: HYDROMORPHONE HCL 0.5 MG/0.5 ML INJ ONE ×2 (21:58→23:36)
[2021-04-13] MEDS ORDERED: CEFTRIAXONE 1000 MG/VIAL ONE (21:58)
--- NOTE | 2021-04-13 22:03 | RAD REPORT ---
EXAM DESCRIPTION: RAD - Chest Single View - 04/13/2021 9:57 pm CLINICAL HISTORY: BLUNT CHEST TRAUMA COMPARISON: Chest Single View dated 10/03/2020; Chest Single View dated 09/28/2020; Chest Single View da anthony 07/16/2020; Chest Single View dated 05/06/2020 FINDINGS: Lines: None. Lungs: No evidence of edema or pneumonia. Pleural: No significant pleural effusions or pneumothorax. Cardiac: The heart size is within normal limits. Bones: No acute fractures. Sternotomy. Other: IMPRESSION: No acute cardiopulmonary disease.
[2021-04-13 22:15] LABS: Urine Blood Trace-intact (Negative); Urine Glucose 2+ (Negative); Urine Protein Negative (Negative)
[2021-04-13] MEDS ORDERED: levoFLOXacin 500 MG TAB ONE (22:33)
[2021-04-13 23:14] LABS: Absolute Lymphocytes (CBC) 2.3 K/uL (0.7-4.9); Basophils % 0.9 % (0-1.3); Hematocrit 41.7 % (36.0-45.0); Lymphocytes % 27.1 % (15.3-44.8); MPV 9.3 fL (7.6-11.3); RBC Red Blood Cell Count 4.65 M/uL (3.86-4.86)
[2021-04-13 23:25] LABS: Protime INR 0.95
--- NOTE | 2021-04-13 23:29 | EDPHYS ---
Physician Documentation [facility] Name: Karen Shah Age: 50 yrs Sex: Female : 1970 Arrival Date: 04/13/2021 Time: 21:10 Bed 10 Private MD: ED Physician Isidro Villa HPI: 04/13 21:41 This 50 yrs old Female presents to ER via Wheelchair with complaints of Pain chasity With Urination, Abdominal Pain, Fall Injury. 21:41 Details of fall: The patient fell from an upright position, while standing. Onset: The chasity symptoms/episode began/occurred 1 week(s) ago. Associated injuries: The patient sustained injury to the chest, specifically the right lateral posterior chest and right lateral anterior chest, contusion, ecchymosis, pain with movement, injury to the abdomen, contusion, ecchymosis. Severity of symptoms: At their worst the symptoms were moderate, in the emergency department the symptoms are unchanged. The patient has not experienced similar symptoms in the past. 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 - Social history:: Smoking status: Patient reports the use of cigarette tobacco products, smokes one pack cigarettes per day. Patient uses alcohol, occasionally. - Family history:: not pertinent. ROS: 21:41 Constitutional: Negative for fever, chills, and weight loss, Eyes: Negative for injury, chasity pain, redness, and discharge, ENT: Negative for injury, pain, and discharge, Neck: Negative for injury, pain, and swelling, Cardiovascular: Negative for chest pain, palpitations, and edema, Back: Negative for injury and pain, : Negative for injury, bleeding, discharge, and swelling, Skin: Negative for injury, rash, and discoloration, Neuro: Negative for headache, weakness, numbness, tingling, and seizure, Psych: Negative for depression, anxiety, suicide ideation, homicidal ideation, and hallucinations, Allergy/Immunology: Negative for hives, rash, and allergies, Endocrine: Negative for neck swelling, polydipsia, polyuria, polyphagia, and marked weight changes, Hematologic/Lymphatic: Negative for swollen nodes, abnormal bleeding, and unusual bruising. 21:41 Respiratory: Positive for shortness of breath. 21:41 Abdomen/GI: Positive for abdominal pain, of the right upper quadrant and right lower quadrant. 21:41 Skin: Positive for ecchymosis, swelling. Exam: 21:41 Constitutional: This is a well developed, well nourished patient who is awake, alert, chasity and in no acute distress. Head/Face: Normocephalic, atraumatic. Eyes: Pupils equal round and reactive to light, extra-ocular motions intact. Lids and lashes normal. Conjunctiva and sclera are non-icteric and not injected. Cornea within normal limits. Periorbital areas with no swelling, redness, or edema. ENT: Nares patent. No nasal discharge, no septal abnormalities noted. Tympanic membranes are normal and external auditory canals are clear. Oropharynx with no redness, swelling, or masses, exudates, or evidence of obstruction, uvula midline. Mucous membranes moist. Neck: Trachea midline, no thyromegaly or masses palpated, and no cervical lymphadenopathy. Supple, full range of motion without nuchal rigidity, or vertebral point tenderness. No Meningismus. Chest/axilla: Normal chest wall appearance and motion. Nontender with no deformity. No lesions are appreciated. Cardiovascular: Regular rate and rhythm with a normal S1 and S2. No gallops, murmurs, or rubs. Normal PMI, no JVD. No pulse deficits. Respiratory: Lungs have equal breath sounds bilaterally, clear to auscultation and percussion. No rales, rhonchi or wheezes noted. No increased work of breathing, no retractions or nasal flaring. Back: No spinal tenderness. No costovertebral tenderness. Full range of motion. Pelvic Exam: Normal external genitalia. Speculum exam with closed cervical os, no discharge or bleeding noted. Bimanual exam with normal adnexa, no adnexal or cervical motion tenderness. Normal uterus. Female : Normal external genitalia. Skin: Warm, dry with normal turgor. Normal color with no rashes, no lesions, and no evidence of cellulitis. Neuro: Awake and alert, GCS 15, oriented to person, place, time, and situation. Cranial nerves II-XII grossly intact. Motor strength 5/5 in all extremities. Sensory grossly intact. Cerebellar exam normal. Normal gait. Psych: Awake, alert, with orientation to person, place and time. Behavior, mood, and affect are within normal limits. 21:41 Abdomen/GI: Inspection: distension, that is mild, Bowel sounds: normal, Palpation: mild abdominal tenderness, in the right upper quadrant and right lower quadrant, Liver: no appreciated palpable abnormalities, Hernia: not appreciated. 22:10 ECG was reviewed by the Attending Physician. [facility] Vital Signs: 21:20 BP 168 / 93; Pulse 98; Resp 18; Temp 97.8(O); Pulse Ox 100% on R/A; Weight 64.41 kg; df1 Height 5 ft. 4 in. (162.56 cm); Pain 10/10; 22:27 BP 159 / 88; Pulse 92; Resp 18; Pulse Ox 100% on R/A; Pain 8/10; ld1 23:39 BP 118 / 96; Pulse 87; Resp 12; Pulse Ox 98% on R/A; ld1 04/14 00:58 BP 129 / 87; Pulse 103; Resp 18 S; Pulse Ox 99% on R/A; bb 02:49 BP 157 / 87; Pulse 91; Resp 16 S; Temp 97.4(O); Pulse Ox 96% on R/A; bb 04/13 21:20 Body Mass Index 24.37 (64.41 kg, 162.56 cm) df1 MDM: 04/13 21:30 Patient medically screened. chasity 21:46 Differential diagnosis: abrasion, contusion, fracture, laceration, multiple trauma, chasity sprain, strain. Data reviewed: vital signs, nurses notes, lab test result(s), EKG, radiologic studies, CT scan, plain films. Data interpreted: nuclear monitoring technician: rate is 98 beats/min, rhythm is regular. Test interpretation: by ED physician or midlevel provider: ECG, plain radiologic studies. Counseling: I had a detailed discussion with the patient and/or guardian regarding: the historical points, exam findings, and any diagnostic results supporting the discharge/admit diagnosis, lab results, radiology results. 04/13 21:40 Order name: Basic Metabolic Panel [facility] 04/13 21:40 Order name: CBC with Diff; Complete Time: 23:21 [facility] 04/13 21:40 Order name: LFT's; Complete Time: 00:15 [facility] 04/13 21:40 Order name: Magnesium; Complete Time: 00:15 [facility] 04/13 21:40 Order name: NT PRO-BNP; Complete Time: 00:15 [facility] 04/13 21:40 Order name: PT-INR; Complete Time: 23:46 [facility] 04/13 21:40 Order name: Troponin (emerg Dept Use Only); Complete Time: 00:15 [facility] 04/13 21:40 Order name: XRAY Chest (1 view); Complete Time: 22:27 [facility] 04/13 21:40 Order name: Urine Culture [facility] 04/13 21:41 Order name: Basic Metabolic Panel; Complete Time: 00:15 EDMN 04/13 22:15 Order name: Urine Dipstick-Ancillary; Complete Time: 22:27 EDMS 04/14 00:19 Order name: SARS-COV-2 RT PCR (Document "Date of Onset" if Symptomatic) [facility] 04/14 01:40 Order name: Glucose, Ancillary Testing; Complete Time: 01:49 EDMS 04/14 00:16 Order name: CT Chest Abdomen Pelvis W/O Contrast [facility] 04/13 21:40 Order name: EKG; Complete Time: 21:41 [facility] 04/13 21:40 Order name: Cardiac monitoring; Complete Time: 22:15 [facility] 04/13 21:40 Order name: EKG - Nurse/Tech; Complete Time: 22:15 [facility] 04/13 21:40 Order name: IV Saline Lock; Complete Time: 22:32 [facility] 04/13 21:40 Order name: Labs collected and sent; Complete Time: 23:17 [facility] 04/13 21:40 Order name: O2 Per Protocol; Complete Time: 22:15 [facility] 04/13 21:40 Order name: O2 Sat Monitoring; Complete Time: 22:15 [facility] 04/13 21:40 Order name: Urine Dipstick-Ancillary (obtain specimen); Complete Time: 22:14 [facility] 04/14 01:29 Order name: Blood Glucose Level; Complete Time: 01:59 [facility] 04/14 02:02 Order name: Bladder Scanner: pvr please; Complete Time: 02:47 [facility] 04/14 02:42 Order name: Blood Glucose Level; Complete Time: 03:03 [facility] EC:10 Rate is 96 beats/min. Rhythm is regular. QRS [place] is Normal. MI interval is normal. QRS chasity interval is normal. QT interval is normal. No Q waves. T waves are Normal. No ST changes noted. Clinical impression: NSR w/ Non-specific ST/T Changes, LVH, and No evidence of ischemia. Interpreted by me. Reviewed by me. Administered Medications: 22:31 Drug: Dilaudid (HYDROmorphone) 0.5 mg Route: IVP; Site: right antecubital; ld1 22:31 Follow up: Response: No adverse reaction ld1 22:31 Drug: Zofran (Ondansetron) 4 mg Route: IVP; Site: right antecubital; ld1 22:31 Follow up: Response: No adverse reaction ld1 22:31 Drug: Rocephin (cefTRIAXone) 1 grams Route: IV; Rate: per protocol; Site: right ld1 antecubital; 22:31 Follow up: Response: No adverse reaction ld1 22:32 Drug: NS 0.9% 1000 ml Route: IV; Rate: 1 bolus; Site: right antecubital; ld1 22:36 Drug: LevOfloxacin 500 mg Route: PO; ld1 22:36 Follow up: Response: No adverse reaction ld1 23:39 Drug: Dilaudid (HYDROmorphone) 0.5 mg Route: IVP; Site: right antecubital; ld1 23:39 Follow up: Response: No adverse reaction ld1 23:39 Drug: Zofran (Ondansetron) 4 mg Route: IVP; Site: right antecubital; ld1 23:39 Follow up: Response: No adverse reaction [facility] 04/14 00:37 Drug: Insulin Regular Human 10 units {Co-Signature: ly (Nedra Nash.} Route: IVP; bb Site: right antecubital; 00:59 Follow up: Response: No adverse reaction bb 00:39 CANCELLED (not availablee): LanTUS (insulin glargine) 30 units Sub-Q once bb 00:47 Drug: Magnesium Sulfate 1 grams Route: IVPB; Infused Over: 1 hrs; Site: right bb antecubital; 01:59 Follow up: IV Status: Completed infusion; IV Intake: 100ml bb 00:59 Drug: NS 0.9% 1000 ml Route: IV; Rate: 1 bolus; Site: right antecubital; bb 03:09 Follow up: IV Status: Order to discontinue infusion; IV Intake: 800ml bb 02:12 Drug: Insulin Regular Human 10 units {Co-Signature: cc4 (Nidia Clarke RN).} Route: bb IVP; Site: right antecubital; 02:47 Follow up: Response: No adverse reaction bb 03:03 Drug: Pyridium (phenazopyridine) 200 mg Route: PO; bb 03:08 Follow up: Response: No adverse reaction bb 03:03 Drug: DiFLUcan (fluconazole) 200 mg Route: PO; bb 03:08 Follow up: Response: No adverse reaction bb 03:04 Not Given (Patient Refused): [place] (HYDROcodone-acetaminophen) (7.5 mg-325 mg) 1 tabs bb PO once; RASS on ADMIN: Combtv4, Very Agttd3, Agttd2, Rstlss1, AlertClm0, Drwsy-1, Lt Sdtn-2, Mod Sdtn-3, Dp Sdtn-4, UnArsble-5 03:06 CANCELLED (Other Intervention Used): Dilaudid (HYDROmorphone) 0.5 mg IM once; RASS on bb ADMIN: Combtv4, Very Agttd3, Agttd2, Rstlss1, AlertClm0, Drwsy-1, Lt Sdtn-2, Mod Sdtn-3, Dp Sdtn-4, UnArsble-5 03:06 Drug: Dilaudid (HYDROmorphone) 0.5 mg Route: IVP; Site: right antecubital; bb 03:08 Follow up: Response: No adverse reaction bb Disposition Summary: 04/14/21 02:41 Discharge Ordered Location: Home(04/14/21 02:41) chasity Problem: new(04/14/21 02:41) chasity Symptoms: have improved(04/14/21 02:41) chasity Condition: Stable(04/14/21 02:41) chasity Diagnosis - Dysuria(04/14/21 02:41) chasity - Fall on same level, unspecified(04/14/21 02:41) chasity - Contusion of right back wall of thorax(04/14/21 02:41) chasity - Contusion of right front wall of thorax(04/14/21 02:41) chasity - Contusion of right hip(04/14/21 02:41) chasity - Type 1 diabetes mellitus with hyperglycemia(04/14/21 02:41) chasity - Hypomagnesemia(04/14/21 02:41) chasity Followup: chasity - With: Private Physician - When: 2 - 3 days - Reason: Recheck today's complaints, Continuance of care, Re-evaluation by your physician Discharge Instructions: - Discharge Summary Sheet chasity - Type 1 Diabetes Mellitus, Diagnosis, Adult chasity - Dysuria chasity - Hyperglycemia chasity - Hypomagnesemia chasity - Blood Glucose Monitoring, Adult chasity - Diabetes Mellitus and Nutrition, Adult chasity - Hyperglycemia, [id number] chasity - Preventing Diabetes Mellitus Complications chasity Forms: - Medication Reconciliation Form chasity - Thank You Letter chasity - Antibiotic Education chasity - Prescription Opioid Use chasity Prescriptions: - levofloxacin 500 mg Oral Tablet - take 1 tablet by ORAL route once daily for 7 days; 7 tablet; Refills: 0, chasity Product Selection Permitted - Fluconazole 200 mg Oral Tablet - take 1 tablet by ORAL route once daily; 1 tablet; Refills: 0, Product Selection chasity Permitted - Tylenol-Codeine #3 300 mg-30 mg Oral - take 2 tablet by ORAL route every 4-6 hours; 15 tablet; Refills: 0, Product chasity Selection Permitted Signatures: Dispatcher [employer] Isidro Good MD MD cha Ballard, Brenda, RN RN bb Meaghan Dean RN RN ld1 Sarahy Dunlap df1 Nedra Alves kc4 Nidia Clarke RN cc4 Corrections: (The following items were deleted from the chart) 04/13 21:25 21:22 Allergies: Demerol; df1 df1 23:32 23:29 Home chasity chasity 23:32 23:29 new chasity chasity 23:32 23:29 have improved chasity chasity 23:32 23:29 Stable chasity chasity 23:32 23:29 Dysuria chasity chasity 23:32 23:29 Fall on same level, unspecified chasity chasity 23:32 23:29 Contusion of right back wall of thorax chasity chasity 23:32 23:29 Contusion of right front wall of thorax chasity chasity 23:32 23:29 Contusion of right hip chasity chasity 23:32 23:29 Type 1 diabetes mellitus with hyperglycemia chasity chasity 04/14 00:35 04/13 21:41 Chest Abdomen Pelvis W Con+CT.RAD.BRZ ordered. EDMS EDMS 04/14 00:39 00:16 LanTUS (insulin glargine) 30 units Sub-Q once ordered. chasity bb 02:15 02:02 Home chasity chasity 02:15 02:02 new chasity chasity 02:15 02:02 have improved chasity chasity 02:15 02:02 Stable chasity chasity 02:15 02:02 Dysuria chasity chasity 02:15 02:02 Fall on same level, unspecified chasity chasity 02:15 02:02 Contusion of right back wall of thorax chasity chasity 02:15 02:02 Contusion of right front wall of thorax chasity chasity 02:15 02:02 Contusion of right hip chasity hcasity 02:15 02:02 Type 1 diabetes mellitus with hyperglycemia chasity chasity 02:15 02:02 Hypomagnesemia chasity chasity 03:06 03:05 Dilaudid (HYDROmorphone) 0.5 mg IM once; RASS on ADMIN: Combtv4, Very Agttd3, bb Agttd2, Rstlss1, AlertClm0, Drwsy-1, Lt Sdtn-2, Mod Sdtn-3, Dp Sdtn-4, UnArsble-5 ordered. bb
--- NOTE | 2021-04-13 23:29 | ER ---
Nurse's Notes [facility] Name: Karen Shah Age: 50 yrs Sex: Female : 1970 Arrival Date: 04/13/2021 Time: 21:10 Bed 10 Private MD: Diagnosis: Dysuria;Fall on same level, unspecified;Contusion of right back wall of thorax;Contusion of right front wall of thorax;Contusion of right hip;Type 1 diabetes mellitus with hyperglycemia;Hypomagnesemia Presentation: 04/13 21:20 Chief complaint: Patient states: Pt states dysuria and lumbar pain. Coronavirus screen: df1 Vaccine status: Patient reports receiving the 2nd dose of the covid vaccine. Client denies travel out of the [place] in the last 14 days. At this time, the client does not indicate any symptoms associated with coronavirus-19. Ebola Screen: Patient negative for fever greater than or equal to 101.5 degrees Fahrenheit, and additional compatible Ebola Virus Disease symptoms Patient denies exposure to infectious person. Patient denies travel to an Ebola-affected area in the 21 days before illness onset. Initial Sepsis Screen: Does the patient meet any 2 criteria? No. Patient's initial sepsis screen is negative. Does the patient have a suspected source of infection? No. Patient's initial sepsis screen is negative. Risk Assessment: Do you want to hurt yourself or someone else? Patient reports no desire to harm self or others. 21:20 Method Of Arrival: Wheelchair df1 21:20 Acuity: ARIEL 3 df1 04/14 01:00 Onset of symptoms was April 14, 2021. bb Historical: - Allergies: 04/13 21:22 Adhesives; df1 21:22 Toradol; df1 21:22 tramadol; df1 - Home Meds: 21:22 gabapentin Oral [Active]; Metformin Oral [Active]; atorvastatin Oral [Active]; aspirin df1 81 mg Oral tab [Active]; clopidogrel Oral [Active]; Humulin 70/30 U-100 Insulin 100 unit/mL (70-30) Sub-Q crtg [Active]; - PMHx: 21:22 CAD; CVA; Diabetes - IDDM; High Cholesterol; Hypertension; Myocardial infarction; Right df1 AKA; Seizures; - PSHx: 21:22 right AKA; CABG x 2; section; df1 - Immunization history:: Adult Immunizations not up to date, Client reports receiving the 2nd dose of the Covid vaccine. - Social history:: Smoking status: Patient reports the use of cigarette tobacco products, smokes one pack cigarettes per day. Patient uses alcohol, occasionally. - Family history:: not pertinent. Screenin:27 Abuse screen: Denies threats or abuse. Denies injuries from another. Nutritional ld1 screening: No deficits noted. Tuberculosis screening: No symptoms or risk factors identified. Fall Risk None identified. Assessment: 22:27 General: Appears in no apparent distress. comfortable, Behavior is cooperative, ld1 appropriate for age, anxious. Pain: Complains of pain in abdomen Pain does not radiate. Pain currently is 8 out of 10 on a pain scale. Quality of pain is described as throbbing, Pain began 2-3 days ago. Is continuous. Neuro: Level of Consciousness is awake, alert, obeys commands, Oriented to person, place, time, situation. Cardiovascular: Capillary refill < 3 seconds Patient's skin is warm and dry. Respiratory: Airway is patent Respiratory effort is even, unlabored, Respiratory pattern is regular, symmetrical. GI: Abdomen is round non-distended, Bowel sounds present X 4 quads. Abd is soft and non tender. : Reports burning with urination. EENT: No signs and/or symptoms were reported regarding the EENT system. Musculoskeletal: No signs and/or symptoms reported regarding the musculoskeletal system. 23:39 Reassessment: Patient appears in no apparent distress at this time. Patient and/or ld1 family updated on plan of care and expected duration. Pain level reassessed. Patient is alert, oriented x 3, equal unlabored respirations, skin warm/dry/pink. Pt C/O abd pain. Notified ERP. See MAR for orders. 04/14 00:58 Reassessment: Patient is alert, oriented x 3, equal unlabored respirations, skin bb warm/dry/pink. IV site intact, patent, with fluids infusing, pt awaiting CT results. 02:47 Reassessment: Patient is alert, oriented x 3, equal unlabored respirations, skin bb warm/dry/pink. post void residual 380 mLs. 03:06 Reassessment: Patient is alert, oriented x 3, equal unlabored respirations, skin bb warm/dry/pink. pt c/o pain to pelvic area Dr Villa notified new orders received pt medicated see MAR. Pt verbalized understanding of and agrees to plan of care discharge instructions given pt assisted to exit via her wheelchair spouse to pick her up. Vital Signs: 04/13 21:20 BP 168 / 93; Pulse 98; Resp 18; Temp 97.8(O); Pulse Ox 100% on R/A; Weight 64.41 kg; df1 Height 5 ft. 4 in. (162.56 cm); Pain 10/10; 22:27 BP 159 / 88; Pulse 92; Resp 18; Pulse Ox 100% on R/A; Pain 8/10; ld1 23:39 BP 118 / 96; Pulse 87; Resp 12; Pulse Ox 98% on R/A; ld1 04/14 00:58 BP 129 / 87; Pulse 103; Resp 18 S; Pulse Ox 99% on R/A; bb 02:49 BP 157 / 87; Pulse 91; Resp 16 S; Temp 97.4(O); Pulse Ox 96% on R/A; bb 04/13 21:20 Body Mass Index 24.37 (64.41 kg, 162.56 cm) df1 ED Course: 04/13 21:10 Patient arrived in ED. cf2 21:22 Triage completed. df1 21:29 Isidro Villa MD is Attending Physician. chasity 21:57 XRAY Chest (1 view) In Process Unspecified. EDMS 22:07 Missed attempt(s): 22 gauge in right forearm. vg1 22:10 Missed attempt(s): 20 gauge in left antecubital area. vg1 22:14 Urine Culture Sent. ld1 22:27 Meaghan Dean, RN is Primary Nurse. ld1 22:27 No provider procedures requiring assistance completed. Inserted saline lock: 22 gauge ld1 in right antecubital area, using aseptic technique. Blood collected. 22:27 Patient has correct armband on for positive identification. Placed in gown. Bed in low ld1 position. Call light in reach. Side rails up X2. library monitor on. Pulse ox on. NIBP on. Door closed. Noise minimized. Warm blanket given. 22:32 Urine Culture Sent. ld1 04/14 00:11 Notified ED physician of a critical lab result(s). glucose of 694 Dr Villa notified. bb 00:35 CT Chest Abdomen Pelvis W/O Contrast In Process Unspecified. EDMS 00:59 Patient pt has correct arm band on. bb 02:50 Bladder scan completed. 380 mLs. bb 03:09 IV discontinued, intact, bleeding controlled, No redness/swelling at site. Pressure bb dressing applied. Administered Medications: 04/13 22:31 Drug: Dilaudid (HYDROmorphone) 0.5 mg Route: IVP; Site: right antecubital; ld1 22:31 Follow up: Response: No adverse reaction ld1 22:31 Drug: Zofran (Ondansetron) 4 mg Route: IVP; Site: right antecubital; ld1 22:31 Follow up: Response: No adverse reaction ld1 22:31 Drug: Rocephin (cefTRIAXone) 1 grams Route: IV; Rate: per protocol; Site: right ld1 antecubital; 22:31 Follow up: Response: No adverse reaction ld1 22:32 Drug: NS 0.9% 1000 ml Route: IV; Rate: 1 bolus; Site: right antecubital; ld1 22:36 Drug: LevOfloxacin 500 mg Route: PO; ld1 22:36 Follow up: Response: No adverse reaction ld1 23:39 Drug: Dilaudid (HYDROmorphone) 0.5 mg Route: IVP; Site: right antecubital; ld1 23:39 Follow up: Response: No adverse reaction ld1 23:39 Drug: Zofran (Ondansetron) 4 mg Route: IVP; Site: right antecubital; ld1 23:39 Follow up: Response: No adverse reaction ld1 04/14 00:37 Drug: Insulin Regular Human 10 units {Co-Signature: kc4 (Nedra Alves).} Route: IVP; bb Site: right antecubital; 00:59 Follow up: Response: No adverse reaction bb 00:39 CANCELLED (not availablee): LanTUS (insulin glargine) 30 units Sub-Q once bb 00:47 Drug: Magnesium Sulfate 1 grams Route: IVPB; Infused Over: 1 hrs; Site: right bb antecubital; 01:59 Follow up: IV Status: Completed infusion; IV Intake: 100ml bb 00:59 Drug: NS 0.9% 1000 ml Route: IV; Rate: 1 bolus; Site: right antecubital; bb 03:09 Follow up: IV Status: Order to discontinue infusion; IV Intake: 800ml bb 02:12 Drug: Insulin Regular Human 10 units {Co-Signature: cc4 (Nidia Clarke RN).} Route: bb IVP; Site: right antecubital; 02:47 Follow up: Response: No adverse reaction bb 03:03 Drug: Pyridium (phenazopyridine) 200 mg Route: PO; bb 03:08 Follow up: Response: No adverse reaction bb 03:03 Drug: DiFLUcan (fluconazole) 200 mg Route: PO; bb 03:08 Follow up: Response: No adverse reaction bb 03:04 Not Given (Patient Refused): [place] (HYDROcodone-acetaminophen) (7.5 mg-325 mg) 1 tabs bb PO once; RASS on ADMIN: Combtv4, Very Agttd3, Agttd2, Rstlss1, AlertClm0, Drwsy-1, Lt Sdtn-2, Mod Sdtn-3, Dp Sdtn-4, UnArsble-5 03:06 CANCELLED (Other Intervention Used): Dilaudid (HYDROmorphone) 0.5 mg IM once; RASS on bb ADMIN: Combtv4, Very Agttd3, Agttd2, Rstlss1, AlertClm0, Drwsy-1, Lt Sdtn-2, Mod Sdtn-3, Dp Sdtn-4, UnArsble-5 03:06 Drug: Dilaudid (HYDROmorphone) 0.5 mg Route: IVP; Site: right antecubital; bb 03:08 Follow up: Response: No adverse reaction bb Intake: 01:59 IV: 100ml; Total: 100ml. bb 03:09 IV: 800ml; Total: 900ml. bb Outcome: 04/13 23:29 Discharge ordered by . chasity 04/14 02:02 Discharge ordered by . chasity 02:41 Discharge ordered by . chasity 03:08 Discharged to home via wheelchair, with family. bb 03:08 Condition: stable 03:08 Discharge instructions given to patient, Instructed on discharge instructions, follow up and referral plans. medication usage, Demonstrated understanding of instructions, follow-up care, medications, Prescriptions given X 3. 03:10 Patient left the ED. bb Signatures: Dispatcher [employer] EDIsidro Bosch MD MD cha Ballard, Brenda, RN RN Reinier Adame cf2 Kamille Eli RN RN vg1 Meaghan Dean RN RN ld1 Sarahy Dunlap df1 Nedra Alves kc4 Nidia Clarke RN cc4 Corrections: (The following items were deleted from the chart) 04/13 21:25 21:22 Allergies: Demerol; df1 df1
[2021-04-14 00:11] LABS: ALT/SGPT 21 U/L (12-78); AST/SGOT 17 U/L (15-37); Albumin 2.5 g/dL (3.4-5.0); Alkaline Phosphatase 139 U/L (45-117); BUN Blood Urea Nitrogen 16 mg/dL (7-18); Bicarbonate 25 mmol/L (21-32); Bilirubin Direct 0.1 mg/dL (0-0.2); Bilirubin Total 0.4 mg/dL (0.2-1.0); Magnesium 1.7 mg/dL (1.8-2.4); NT PRO-BNP 251 pg/mL (<125); Potassium 4.3 mmol/L (3.5-5.1); Protein, Total 6.3 g/dL (6.4-8.2); Sodium Level 132 mmol/L (136-145); Troponin (Emerg Dept Use Only) < 0.02 ng/mL (0.0-0.045)
[2021-04-14 00:12] LABS: Glucose Level 694 mg/dL (74-106)
[2021-04-14] MEDS ORDERED: INSULIN -REGULAR HUMAN 50 UNIT/0.5 ML ML ONE ×2 (00:28→02:02)
[2021-04-14] MEDS ORDERED: MAGNESIUM SULFATE 1 gm IVPB 1 GM/100 ML BAG IV ONE (00:28)
[2021-04-14] MEDS ORDERED: NA CHLORIDE 0.9% 1,000 ML ONE (00:50)
[2021-04-14] MEDS ORDERED: FLUCONAZOLE 100 MG TAB ONE (02:53)
[2021-04-14] MEDS ORDERED: HYDROCODONE/APAP 7.5/325 MG TAB ONE (02:54)
[2021-04-14] MEDS ORDERED: PHENAZOPYRIDINE 100MG TAB PO ONE (02:54)
[2021-04-14] MEDS ORDERED: HYDROMORPHONE HCL 0.5 MG/0.5 ML INJ ONE (03:12)
[2021-04-14 03:26] VITALS: BP 157/87; TEMP 97.4; O2SAT 96
--- NOTE | 2021-04-14 12:55 | RAD REPORT ---
EXAM DESCRIPTION: CT - Chest Abd Pelvis Wo Con - 04/14/2021 6:17 am CLINICAL HISTORY: The patient is 50 years old and is Female; COUGH TECHNIQUE: Axial computed tomography images of the chest, abdomen and pelvis without intravenous con trast. Sagittal and coronal reformatted images were created and reviewed. This CT exam was perfor med using one or more of the following dose reduction techniques: automated exposure control, adjus tment of the mA and/or kV according to patient size, and/or use of iterative reconstruction technique . COMPARISON: CT of the abdomen and pelvis November 14, 2020. FINDINGS: CHEST: LUNGS: Minimal dependent densities in the lung bases are present. The lungs are otherwise maikel r. The tracheobronchial tree is widely patent. PLEURAL SPACE: Unremarkable. No significant effusion. No pneumothorax. HEART: No cardiomegaly. No pericardial effusion. ABDOMEN: LIVER: Homogeneous without focal mass. GALLBLADDER AND BILE DUCTS: The gallbladder is contracted. PANCREAS: Fatty infiltration of pancreas is present. No ductal dilation. SPLEEN: Unremarkable. ADRENALS: Unremarkable. No mass. KIDNEYS AND URETERS: Bilateral punctate intrarenal calcifications are present. Mild prominence o f the ureters are noted likely secondary to an overdistended bladder. No obstructing renal or uretera l calculus is seen. STOMACH AND BOWEL: The stomach is significantly distended with food contents. The small bowel is normal in caliber. A moderate amount stool is present throughout colon. There is no mucosal thickeni ng or evidence of bowel obstruction. PELVIS: APPENDIX: No findings to suggest acute appendicitis. BLADDER: The bladder is significantly distended. REPRODUCTIVE: Unremarkable as visualized. CHEST, ABDOMEN and PELVIS: INTRAPERITONEAL SPACE: Unremarkable. No significant fluid collection. No free air. BONES/JOINTS: Median sternotomy wires are present. No acute fracture. SOFT TISSUES: The soft tissues are normal. VASCULATURE: Atherosclerosis of the vasculature is present. The vessels are normal in caliber. No aortic aneurysm. LYMPH NODES: Unremarkable. No enlarged lymph nodes. IMPRESSION: 1. Bilateral nephrolithiasis without obstruction. 2. Significant distention of bladder prominence of the ureters. 3. Moderate stool burden without obstruction. Electronically signed by: Mayda Dubois MD 04/14/2021 1:48 AM SOLAR ENERGY SYSTEM INSTALLER Due to temporary technical issues with the PACS/Fluency reporting system, reports are being signed by the in house radiologist without review as a courtesy to ensure prompt reporting. The interpreting r adiologist is fully responsible for the content of the report.
--- NOTE | 2021-04-14 16:57 | EKG ---
Test Date: 2021-04-13 Test Time: 22:04:21 Civil Engineering Technician: KAELA MEASUREMENT RESULTS: Intervals: Rate: 96 AR: 154 QRSD: 80 QT: 374 QTc: 472 [place]: P: 54 AR: 154 QRS: -22 T: 33 INTERPRETIVE STATEMENTS: Normal sinus rhythm Possible Left atrial enlargement Left ventricular hypertrophy Inferior infarct, age undetermined Anterior infarct, age undetermined Abnormal ECG Compared to ECG 10/03/2020 18:47:40 Left ventricular hypertrophy now present Myocardial infarct finding still present Electronically Signed On 04-14-21 16:56:59 RECTIFIER OPERATOR by Griffin Mejia
== END 2021-04-14 03:10 | disposition home or self-care (01) ==
LOC: ER 21:04
DX: S20.221A Contusion of right back wall of thorax, initial encounter (principal); S20.211A Contusion of right front wall of thorax, initial encounter; S70.01XA Contusion of right hip, initial encounter; E10.65 Type 1 diabetes mellitus with hyperglycemia; E83.42 Hypomagnesemia; W18.30XA Fall on same level, unspecified, initial encounter; I10 Essential (primary) hypertension; F17.210 Nicotine dependence, cigarettes, uncomplicated; Z20.822 Contact with and (suspected) exposure to COVID-19; Z86.73 Personal history of transient ischemic attack (TIA), and cerebral infarction without residual deficits; Z79.82 Long term (current) use of aspirin; Z79.4 Long term (current) use of insulin; Z88.5 Allergy status to narcotic agent; Z91.048 Other nonmedicinal substance allergy status
CPT/HCPCS: 93005; 87088; 85025; 87086; 80048; 36415; 83735; 85610; 82947 ×2; 80076; 81003; 84484; 83880; 71250; 74176; 71045; U0003; J3475; J1170 ×3; J7030 ×2; J2405 ×2

== ENCOUNTER 2021-05-04 18:30 | Observation (INO) | payer OTHER ==
--- OUTSIDE RECORDS SUMMARY | 2021-05-04 18:51 | XMS REPORT | Continuity of Care Document ---
:1970 Author Organization [facility] t Address [address] [place] [address] Care Team Providers Name Role Phone Igor [...] Han BROWN, Marco Attending Clinician Hosea BROWN, [facility] Attending Clinician Bennie COSTA Attending Clinician Unavailable [...] Attending Clinician Unavailable Kyler MURILLO Attending Clinician JUAN ANTONIO Attending Clinician Unavailable Juan Antonio BROWN Attending Clinician Roger KING Admitting Clinician Lc Leonard Admitting Clinician Toáms BROWN Admitting Clinician KILO Admitting Clinician Unavailable JUAN ANTONIO Admitting Clinician Unavailable Juan Antonio BROWN Admitting Clinician Payers Payer Name Policy Type Policy Number Effective Date Expiration Date Vero neal MEDICARE PART A [id number] 2017 \\T\\ B 00:00:00 Problems Condition Condition Condition Status Onset Resolution Last Treating Co mments Source Name Details Category Date Date Treatment Clinician Date UTI UTI Disease Active Univers (urinary (urinary 8-20 ity of tract tract 00:00: [place] infection) infection) 00 Az dical Branch Dizziness Dizziness Disease Active Uni vers 8-20 ity of 00:00: [place] 00 Medical Branch Weakness Weakness Disease Active Unive rs 8-20 ity of 00:00: [place] 00 [facility] Branch CAD in CAD in Disease Active Univers jamul jamul 7-05 ity of artery artery 00:00: [place] [facility] Hypoglycem Hypoglycem Disease Active U nivers ia ia 6-11 ity of 00:00: [place] 00 Medical [place] 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 5-06 it y of on on 00:00: [place] [facility] Poor Poor Disease Active Univers appetite appetite 5-06 ity of 00:00: [place] 00 Medical Branch Hypoalbumi Hypoalbumi Disease Active U nivers nemia nemia 5-06 ity of 00:00: [place] [facility] Hyperglyce Hyperglyce Disease Active U nivers filomena butt 4-11 ity of 00:00: [place] 00 Medical Branch Complicate Complicate Disease Active U nivers d UTI d UTI 4-10 ity of (urinary (urinary 00:00: [place] tract tract 00 Medical infection) infection) Br anch 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 00:00: [place] mellitus mellitus 00 Medica l with with Branch hyperglyce hyperglyce filomena butt Chronic Chronic Disease Active 2019-05 Univers hip [...] 00:00: [place] involving involving 00 Medi blanquita jamul jamul Branch coronary coronary artery of artery of jamul jamul heart heart without without angina angina pectoris [...] 00:00: [place] involving involving 00 Medi blanquita jamul jamul Branch coronary coronary artery of artery of jamul jamul heart heart without without angina angina pectoris pectoris PAD PAD Disease Active Univers (periphera (periphera 3-09 it y of l artery l artery 00:00: [place] disease) disease) 00 Medica l Branch GARY GARY Disease Active Overview: Univer s (stress (stress 02-02 Formattin ity o f urinary urinary 00:00: g of this [place] incontinen incontinen 00 note Me dical ce, ce, might be Branch female) female) different from the original. Added automatic ally from request for surgery [id number] GERD GERD Disease Active Univers (gastroeso (gastroeso it y of phageal phageal [place] reflux reflux Medical disease) disease) Branch DM DM Disease Active Univers (diabetes (diabetes ity of mellitus) mellitus) [facility] Depression Depression Disease Active U nivers ity of [facility] CVA CVA Disease Active Univers (cerebral (cerebral ity of vascular vascular [place] accident) accident) [facility] CHF CHF Disease Active Univers (congestiv (congestiv it y of e heart e heart [place] failure) failure) [facility] Anxiety Anxiety Disease Active Univers ity of [facility] Angina Angina Disease Active Univers pectoris pectoris ity of [facility] H/O right H/O right Disease Active Uni vers coronary coronary ity of artery artery [place] stent stent Medical placement placement Bran ch Hyperlipid Hyperlipid Disease Active U nivers emia, emia, ity of unspecifie [place]specifie [place] d Medical hyperlipid hyperlipid Br anch emia type emia type Essential Essential Disease Active Uni vers hypertensi hypertensi it y [facility], [facility] of CABG Hx of CABG Disease Active U nivers ity of [facility] Migraines Migraines Disease Active Uni vers ity of [facility] Seizures Seizures Disease Active Unive rs ity of [facility] Unilateral Unilateral Disease Active U nivers AKA, right AKA, right it y of [facility] High High Disease Active Univers cholestero cholestero it y of l l [facility] HTN HTN Disease Active Univers (hypertens (hypertens it y of ion) ion) [facility] Unilateral Unilateral Disease Active U nivers AKA, right AKA, right it y of [facility] Unilateral Unilateral Disease Active U nivers AKA, right AKA, right it y of [facility] History of History of Problem Active C [...] [facility] Chronic Problem Active [facility] pain pain [facility] disorder disorder [facility] a l [facility] 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 [facility] current current [facility] - use of use of Memoria insulin insulin l [facility] Neuropathy Neuropathy Problem Active [facility] Depression Depression Problem Active [facility] with with [facility] - anxiety anxiety [facility]oria l [facility] HTN HTN Problem Active [facility] (hypertens (hypertens Charley kes - ion), ion), Memoria benign benign l [facility] Seizures Seizures Problem [facility] Coronary Coronary Problem Active [facility] t artery artery [facility] - disease disease Memoria involving involving l coronary coronary Outpat i bypass bypass ent graft of graft of Clinic s jamul jamul heart with heart with angina angina pectoris pectoris Dependent Dependent Problem Active [facility] on on [facility] - wheelchair wheelchair Me moria l [facility] History of History of Problem Active [facility] right right [facility] - above knee above knee Me moria amputation amputation l [facility] Allergies, Adverse Reactions, Alerts [...] 7-20 ity of 00:00: [place] 00 Medical Branch Toradol Adverse Active Info Not [facility] Reaction [facility] tramadol Adverse Active Info Not [facility] Reaction [facility] Social History Social Habit Start Date Stop Date Quantity Comments Source History of tobacco Cigarette Smoker [facility] [place] [facility] Exposure to Not sure [place] of SARS-CoV-2 (event) [facility] Alcohol intake 2021-02-12 2021-02-12 Ex-drinker [facility] 00:00:00 00:00:00 (finding) [facility] Education 2021-01-15 2021-01-15 12 [facility] 00:00:00 00:00:00 [place] [facility] History SDOH 2020-05-08 2020-05-08 99 University o f Alcohol Frequency 00:00:00 00:00:00 [facility] SDOH 2020-05-08 2020-05-08 99 University o f Alcohol Std Drinks 00:00:00 00:00:00 [facility] Branch History [facility] 2020-05-08 2020-05-08 99 [place] o f Alcohol Binge 00:00:00 00:00:00 [facility] al Branch Tobacco Comment 2020-04-03 2020-04-03 smoking since 12 Uni versity of 00:00:00 00:00:00 years old [facility] Alcohol Comment 2019-10-11 2019-10-11 rare Universit y of 00:00:00 00:00:00 [facility] Cigarettes smoked 2018-02-21 2018-02-21 Univers ity of current (pack per 00:00:00 00:00:00 [facility] ) - Reported Branch Tobacco use and 2018-02-21 2018-02-21 Never used Universit y of exposure 00:00:00 00:00:00 [facility] Sex [birth year] Universit y of 00:00:00 00:00:00 [facility] Smoking Status Start Date Stop Date Source Current every day smoker 2020-10-01 00:00:00 Uni versity of [place] [facility] Medications Ordered Filled Start Stop Current Ordering Indication Dosage Frequency Signature Comments Components Source Medication Medication Date Date Medication? Clinician (SIG) Name Name cefTRIAXone 2020- Yes 1000mg 1,000 mg, Univers (ROCEPHIN) 02-12 IV ity of 1,000 mg in 22:45: 10:44 [place], [place] NaCl 0.9% 00 :00 ONCE, 1 Medical (NS) 50 mL dose, On Branc h MINI-BAG Mon02/12/21 at 1745, Administer over 30 Minutes, 50 mL
Reas on for Anti-Infec tive: Empiric Therapy for Suspected Infection< br>Empiric Therapy Site: Urine
D uration of therapy: 72 hours cefTRIAXone 2020- Yes 1000mg 1,000 mg, Univers (ROCEPHIN) 02-12 IV ity of 1,000 mg in 22:45: 10:44 [place], [place] NaCl 0.9% 00 :00 ONCE, 1 Medical (NS) 50 mL dose, On Branc h MINI-BAG Mon02/12/21 at 1745, Administer over 30 Minutes, 50 mL
Reas on for Anti-Infec tive: Empiric Therapy for Suspected Infection< br>Empiric Therapy Site: Urine
D uration of therapy: 72 hours insulin 2020- No 10U 10 Units, Univ ers regular 02-12 Slow IV ity of human 21:30: 21:29 [facility], [place] (HUMULIN R) 00 :00 ONCE, 1 Medic al injection dose, On Branch 10 Units Mon02/12/21 at 1630, Routine NaCl 0.9% 2020- No 1000mL at 999 Uni vers (NS) bolus 02-12 mL/hr, ity of infusion 21:30: 22:08 1,000 mL, [place]aff[place] as 1,000 mL 00 :00 IV [facility] ONCE, 1 dose, On Mon02/12/21 at 1630, STAT insulin 2020- No 10U 10 Units, Univ ers regular 02-12 Slow IV ity of human 21:30: 21:29 [place] (HUMULIN R) 00 :00 ONCE, 1 Medic al injection dose, On Branch 10 Units Mon02/12/21 at 1630, Routine NaCl 0.9% No 1000mL at 999 Uni vers (NS) bolus 02-12 mL/hr, ity of infusion 21:30: 22:08 1,000 mL, [place] as 1,000 mL 00 :00 IV Medical Piggyback, Branch ONCE, 1 dose, On 02/12/21 at 1630, STAT cefpodoxime 2020- Yes [id number] 100mg Take 1 Univers 100 mg 02-12 tablet by ity of tablet 00:00: 04:59 mouth 2 [place] 00 :00 (two) Medical times [place] daily for 7 days. cefpodoxime 2020- Yes [id number] 100mg Take 1 Univers 100 mg 02-12 tablet by ity of tablet 00:00: 04:59 mouth 2 [place] 00 :00 (two) Medical times [place] daily for 7 days. glipiZIDE 2020- No [id number] 10mg Take 1 U nivers 10 mg 01-18 tablet by ity of tablet 00:00: 04:59 mouth [place] 00 :00 daily for Medical 30 days. Branch glipiZIDE 2020- No [id number] 10mg Take 1 U nivers 10 mg 01-18 tablet by ity of tablet 00:00: 04:59 mouth [place] 00 :00 daily for Medical 30 days. [place] glipiZIDE 2020- No [id number] 10mg Take 1 U nivers 10 mg 01-18 tablet by ity of tablet 00:00: 00:00 mouth [place] 00 :00 daily for Medical 30 days. Branch glipiZIDE Yes 10mg 10 mg, Univer s (GLUCOTROL) 01-17 Oral, ity of tablet 10 14:00: DAILY, [place] mg 00 First dose Medical on Sun Branch 01/17/21 at 0900, Until Discontinu ed, [...] Therapy: Other (see Comments) nicotine 14 2020- No [id number] 1{patch Apply 1 Univers mg/24 hr 01-17-20 } Patch to ity of patch 00:00: 04:59 area(s) [place] 00 :00 every 24 Medical (twenty-fo Branch ur) hours for 28 days. nicotine 14 2020- No [id number] 1{patch Apply 1 Univers mg/24 hr 01-17-20 } Patch to ity of patch 00:00: 04:59 area(s) [place] 00 :00 every 24 Medical (twenty-fo Branch ur) hours for 28 days. nicotine 14 2020- No [id number] 1{patch Apply 1 Univers mg/24 hr 01-17-20 } Patch to ity of patch 00:00: 04:59 area(s) [place] 00 :00 every 24 Medical (twenty-fo Branch ur) hours for 28 days. nicotine 14 2020- No [id number] 1{patch Apply 1 Univers mg/24 hr 01-17-20 } Patch to ity of patch 00:00: 04:59 area(s) [place] 00 :00 every 24 Medical (twenty-fo Branch ur) hours for 28 days. nicotine 14 2020- No [id number] 1{patch Apply 1 Univers mg/24 hr 01-17-20 } Patch to ity of patch 00:00: 04:59 area(s) [place] 00 :00 every 24 Medical (twenty-fo Branch ur) hours for 28 days. ciprofloxac 2020- No [id number] 500mg Take 1 Univers in HCl 500 01-17 08-30 tablet by ity of mg tablet 00:00: 04:59 mouth [place] 00 :00 every 12 Medical (twelve) Branch hours for 7 days. ciprofloxac 2020- No [id number] 500mg Take 1 Univers in HCl 500 8 08-30 tablet by ity of mg tablet 00:00: 04:59 mouth [place] 00 :00 every 12 Medical (twelve) Branch hours for 7 days. KCL 2020- No 60meq 60 mEq, Univers (KLOR-CON 01-16 Oral, ity of M20) tablet 16:00: 16:43 ONCE, 1 [place] 60 mEq 00 :00 dose, [facility] 01/16/21 at Branch 1100, Routine cefTRIAXone 0 Yes 1000mg 1,000 mg, Univers (ROCEPHIN) 01-16 IV ity of 1,000 mg in 14:30: Piggyback, [place] NaCl 0.9% 00 Q24H ABX, Medic al (NS) 50 mL First dose Bra [facility] MINI-BAG on [facility] 01/16/21 at 0930, Until Discontinu ed, Administer over 30 Minutes, 50 mL
Reas on for Anti-Infec tive: Empiric Therapy for Suspected Infection< br>Empiric Therapy Site: Urine
D uration of therapy: 7 days pantoprazol Yes 40mg 40 mg, Univ ers e 01-16 Oral, ity of (PROTONIX) 14:00: DAILY, [place] EC tablet 00 First dose Medi blanquita 40 mg on [facility] 01/16/21 at 0900, Until Discontinu ed, Routine ezetimibe Yes 10mg 10 mg, Univer s (ZETIA) 01-16 Oral, ity of tablet 10 14:00: DAILY, [place] mg 00 First dose Medical on [facility] 01/16/21 at 0900, Until Discontinu ed, Routine clopidogreL Yes 75mg 75 mg, Univ ers (PLAVIX) 01-16 Oral, ity of tablet 75 14:00: DAILY, [place] mg 00 First dose Medical on [facility] 01/16/21 at 0900, Until Discontinu ed, Routine aspirin 0 Yes 81mg 81 mg, Univers chewable 01-16 Oral, ity of tablet 81 14:00: DAILY, [place] mg 00 First dose Medical on [facility] 01/16/21 at 0900, Until Discontinu ed, Routine fluconazole 2020- No 150mg 150 mg, U nivers (DIFLUCAN) 01-16 Oral, ity of tablet 150 14:00: 20:40 DAILY, [place] mg 00 :05 First dose Medical on [facility] 01/16/21 at 0900, Until Discontinu ed, TRANG
Re ason for Anti-Infec tive: Documented Infection< br>Documen anthony Infection Site: Urine
D uration of Therapy: Other (see Comments) Sliding 2020- Yes Subcutaneo Univ ers Scale 01-16 us, TID ity of Insulin - 13:00: MEALS, [place] Lispro 00 First dose Medical (HumaLOG) + (after [place] [facility] last Testing modificati on) on [facility] 01/16/21 at 0800, Until Discontinu ed, Routine insulin NPH No 15U 15 Units, Univers and regular 01-16 Subcutaneo i ty of human 70-30 02:30: 01:47 us, ONCE, [place] (HUMULIN 00 :00 1 dose, Medical 70-30 U-100 Mon [place] INSULIN) 01/15/21 at 100 unit/mL 2130, (70-30) Routine injection 15 Units mirtazapine Yes 15mg 15 mg, Univ ers (REMERON) 01-16 Oral, QHS, ity of tablet 15 02:00: First dose [place] mg 00 on Mon [facility] 01/15/21 at Branch 2100, Until Discontinu ed, Routine atorvastati Yes 80mg 80 mg, Univ ers n (LIPITOR) 01-16 Oral, QHS, it y of tablet 80 02:00: First dose [place] mg 00 on Mon [facility] 01/15/21 at Branch 2100, Until Discontinu ed, [...] 1 00 over 24 Medical Patch Hours, [place] Q24H, First dose on Mon01/15/21 at 1815, Until Discontinu ed, Routine insulin NPH Yes 40U 40 Units, U nivers and regular 01-15 Subcutaneo it y of human 70-30 22:45: us, BIDAC, [place] (HUMULIN 00 First dose Medic al 70-30 [...] ity of Insulin - 22:45: 01:18 MEALS, [place] Lispro 00 :16 First dose Medical (HumaLOG) + on Mon Branch Fs[facility] 01/15/21 at Testing 1745, Until Discontinu ed, Routine enoxaparin Yes 40mg 40 mg, Unive rs (LOVENOX) 01-15 Subcutaneo ity of injection 22:00: us, DAILY, [place] 40 mg 00 First dose Medical on Fri Branch 01/15/21 at 1700, Until Discontinu ed, Routine morpHINE 0 Yes 2mg 2 mg, Slow Uni vers injection 2 8-20 IV Push, ity of mg 21:58: Q4HPRN, [place] 52 Starting Medical Fri Branch 01/15/21 at 1658, Until Discontinu ed, Routine, Pain (scale 7-10) ondansetron Yes 4mg 4 mg, Slow Univers (ZOFRAN 8-20 IV Push, ity of (PF)) 21:32: Q6HPRN, [place] injection 4 17 Starting Medi blanquita mg Fri Branch 01/15/21 at 1632, Until Discontinu ed, Routine, Nausea and Vomiting (N/V) HYDROcodone 2020- No 1{tbl} 1 tablet, Univers -acetaminop 01-15 Oral, ity of hen (NORCO 21:31: 21:30 Q6HPRN, [place] as 5) 5-325 mg 58 :58 Starting Medi blanquita tablet 1 Fri Branch tablet 01/15/21 at 1631, Until 01/17/21 at 1630, Routine, Pain (scale 4-6) acetaminoph 2020-0 Yes 650mg 650 mg, Un cali en 8-20 Oral, ity of (TYLENOL) 21:31: Q6HPRN, [place] tablet 650 47 Starting Medic al mg Fri Branch 01/15/21 at 1631, Until Discontinu ed, Routine, Pain (scale 1-3) gabapentin 2020- Yes [id number] 800mg Take 1 Univers 800 mg 8-20 tablet by ity of tablet 00:00: mouth 3 (three) Medical times Branch daily. gabapentin 2020-0 Yes [id number] 800mg Take 1 Univers 800 mg 8-20 tablet by ity of tablet 00:00: mouth 3 (three) Medical times Branch daily. gabapentin 2020-0 Yes [id number] 800mg Take 1 Univers 800 mg 8-20 tablet by ity of tablet 00:00: mouth 3 (three) Medical times Branch daily. gabapentin 2020-0 Yes [id number] 800mg Take 1 Univers 800 mg 8-20 tablet by ity of tablet 00:00: mouth 3 (three) Medical times Branch daily. gabapentin 2020-0 Yes [id number] 800mg Take 1 Univers 800 mg 8-20 tablet by ity of tablet 00:00: mouth 3 (three) Medical times Branch daily. gabapentin 2020-0 Yes [id number] 800mg Take 1 Univers 800 mg 8-20 tablet by ity of tablet 00:00: mouth 3 (three) Medical times Branch daily. gabapentin 2020-0 Yes [id number] 800mg Take 1 Univers 800 mg 8-20 tablet by ity of tablet 00:00: mouth 3 (three) Medical times Branch daily. gabapentin 2020-0 Yes [id number] 800mg Take 1 Univers 800 mg 8-20 tablet by ity of tablet 00:00: mouth 3 (three) Medical times Branch daily. ondansetron 2020-0 Yes [id number] 4mg Take 1 Univers 4 mg 8-06 tablet by ity of disintegrat 00:00: mouth [place] ing tablet 00 every 8 Medica l (eight) Branch hours as needed for Nausea and Vomiting (N/V). glucagon 3 2020-0 Yes [id number] 1{spray Use 1 Univers mg/actuatio 8-06 } [place] in ity of n [place] 00:00: each [place] 00 nostril as Medical needed Branch (hypoglyce filomena). ondansetron 2020-0 Yes [id number] 4mg Take 1 Univers 4 mg 8-06 tablet by ity of disintegrat 00:00: mouth [place] ing tablet 00 every 8 Medica l (eight) Branch hours as needed for Nausea and Vomiting (N/V). glucagon 3 Yes [id number] 1{spray Use 1 Univers mg/actuatio 8-06 } [place] in ity of n [place] 00:00: each [place] 00 nostril as Medical needed Branch (hypoglyce filomena). ondansetron 2020-0 Yes [id number] 4mg Take 1 Univers 4 mg 8-06 tablet by ity of disintegrat 00:00: mouth [place] ing tablet 00 every 8 Medica l (eight) Branch hours as needed for Nausea and Vomiting (N/V). glucagon 3 Yes [id number] 1{spray Use 1 Univers mg/actuatio 8-06 } [place] in ity of n [place] 00:00: each [place] 00 nostril as Medical needed Branch (hypoglyce filomena). ondansetron Yes [id number] 4mg Take 1 Univers 4 mg 8-06 tablet by ity of disintegrat 00:00: mouth [place] ing tablet 00 every 8 Medica l (eight) Branch hours as needed for Nausea and Vomiting (N/V). ondansetron 0 Yes [id number] 4mg Take 1 Univers 4 mg 8-06 tablet by ity of disintegrat 00:00: mouth [place] ing tablet 00 every 8 Medica l (eight) Branch hours as needed for Nausea and Vomiting (N/V). ondansetron 2020-0 Yes [id number] 4mg Take 1 Univers 4 mg 8-06 tablet by ity of disintegrat 00:00: mouth [place] ing tablet 00 every 8 Medica l (eight) Branch hours as needed for Nausea and Vomiting (N/V). ondansetron 2020-0 Yes [id number] 4mg Take 1 Univers 4 mg 8-06 tablet by ity of disintegrat 00:00: mouth [place] ing tablet 00 every 8 Medica l (eight) Branch hours as needed for Nausea and Vomiting (N/V). ondansetron Yes [id number] 4mg Take 1 Univers 4 mg 8-06 tablet by ity of disintegrat 00:00: mouth [place] ing tablet 00 every 8 Medica l (eight) Branch hours as needed for Nausea and Vomiting (N/V). ondansetron Yes [id number] 4mg Take 1 Univers 4 mg 8-06 tablet by ity of disintegrat 00:00: mouth [place] ing tablet 00 every 8 Medica l (eight) Branch hours as needed for Nausea and Vomiting (N/V). ondansetron Yes [id number] 4mg Take 1 Univers 4 mg 8-06 tablet by ity of disintegrat 00:00: mouth [place] ing tablet 00 every 8 Medica l (eight) Branch hours as needed for Nausea and Vomiting (N/V). glucagon 3 2020- No [id number] 1{spray Use 1 Univers mg/actuatio 8-06 08-20 } [place] in ity of n [place] 00:00: 00:00 each [place] 00 :00 nostril as Medical needed Branch (hypoglyce filomena). glucagon 3 2020- No [id number] 1{spray Use 1 Univers mg/actuatio 8-06 08-20 } [place] in ity of n [place] 00:00: 00:00 each [place] 00 :00 nostril as Medical needed Branch (hypoglyce filomena). glucagon 3 2020- No [id number] 1{spray Use 1 Univers mg/actuatio 8-06 08-20 } [place] in ity of n [place] 00:00: 00:00 each [place] 00 :00 nostril as Medical needed Branch (hypoglyce filomena). GABAPENTIN Yes [id number] TAKE 1 Univers 800 mg 7-23 TABLET BY ity of tablet 00:00: MOUTH [place] 00 THREE Medical TIMES Branch DAILY GABAPENTIN 2020- No [id number] TAKE 1 Univers 800 mg 7-23 08-19 TABLET BY ity of tablet 00:00: 00:00 MOUTH [place] 00 :00 THREE Medical TIMES Branch DAILY GABAPENTIN 2020- No [id number] TAKE 1 Univers 800 mg 7-23 08-19 TABLET BY ity of tablet 00:00: 00:00 MOUTH [place] 00 :00 THREE Medical TIMES Branch DAILY clopidogreL 2021-0 Yes [id number] 75mg Take 1 Univers 75 mg 7-07 tablet by ity of tablet 00:00: mouth [place] 00 daily. Medical Branch aspirin 81 2021-0 Yes [id number] 81mg Take 1 U nivers mg chewable 7-07 tablet by ity of tablet 00:00: mouth [place] 00 daily. Medical Branch clopidogreL 2021-0 Yes [id number] 75mg Take 1 Univers 75 mg 7-07 tablet by ity of tablet 00:00: mouth [place] 00 daily. Medical Branch aspirin 81 202-0 Yes [id number] 81mg Take 1 U nivers mg chewable 7-07 tablet by ity of tablet 00:00: mouth [place] 00 daily. Medical Branch clopidogreL 2021-0 Yes [id number] 75mg Take 1 Univers 75 mg 7-07 tablet by ity of tablet 00:00: mouth [place] 00 daily. Medical Branch aspirin 81 2020-0 Yes [id number] 81mg Take 1 U nivers mg chewable 7-07 tablet by ity of tablet 00:00: mouth [place] 00 daily. Medical Branch clopidogreL 2021-0 Yes [id number] 75mg Take 1 Univers 75 mg 7-07 tablet by ity of tablet 00:00: mouth [place] 00 daily. Medical Branch aspirin 81 1-0 Yes [id number] 81mg Take 1 U nivers mg chewable 7-07 tablet by ity of tablet 00:00: mouth [place] 00 daily. Medical Branch clopidogreL 2021-0 Yes [id number] 75mg Take 1 Univers 75 mg 7-07 tablet by ity of tablet 00:00: mouth [place] 00 daily. Medical Branch aspirin 81 2021-0 Yes [id number] 81mg Take 1 U nivers mg chewable 7-07 tablet by ity of tablet 00:00: mouth [place] 00 daily. Medical Branch clopidogreL 2021-0 Yes [id number] 75mg Take 1 Univers 75 mg 7-07 tablet by ity of tablet 00:00: mouth [place] 00 daily. Medical Branch aspirin 81 2021-0 Yes [id number] 81mg Take 1 U nivers mg chewable 7-07 tablet by ity of tablet 00:00: mouth [place] 00 daily. Medical Branch clopidogreL 2021-0 Yes [id number] 75mg Take 1 Univers 75 mg 7-07 tablet by ity of tablet 00:00: mouth [place] 00 daily. Medical Branch aspirin 81 2020-0 Yes [id number] 81mg Take 1 U nivers mg chewable 7-07 tablet by ity of tablet 00:00: mouth [place] 00 daily. Medical Branch clopidogreL 2020-0 Yes [id number] 75mg Take 1 Univers 75 mg 7-07 tablet by ity of tablet 00:00: mouth [place] 00 daily. Medical Branch aspirin 81 2020-0 Yes [id number] 81mg Take 1 U nivers mg chewable 7-07 tablet by ity of tablet 00:00: mouth [place] 00 daily. Medical Branch clopidogreL 2020-0 Yes [id number] 75mg Take 1 Univers 75 mg 7-07 tablet by ity of tablet 00:00: mouth [place] 00 daily. Medical Branch aspirin 81 2020-0 Yes [id number] 81mg Take 1 U nivers mg chewable 7-07 tablet by ity of tablet 00:00: mouth [place] 00 daily. [facility] Branch clopidogreL 2020-0 Yes [id number] 75mg Take 1 [facility] 75 mg 7-07 tablet by ity of tablet 00:00: mouth [place] 00 daily. Medical Branch aspirin 81 2020-0 Yes [id number] 81mg Take 1 U nivers mg chewable 7-07 tablet by ity of tablet 00:00: mouth [place] 00 daily. [facility] clopidogreL 2020-0 Yes [id number] 75mg Take 1 [facility] 75 mg 7-07 tablet by ity of tablet 00:00: mouth [place] 00 daily. Medical Branch aspirin 81 2020-0 Yes [id number] 81mg Take 1 U nivers mg chewable 7-07 tablet by ity of tablet 00:00: mouth [place] 00 daily. [facility] Branch clopidogreL 2020-0 Yes [id number] 75mg Take 1 [facility] 75 mg 7-07 tablet by ity of tablet 00:00: mouth [place] 00 daily. Medical Branch aspirin 81 2020-0 Yes [id number] 81mg Take 1 U nivers mg chewable [...] [place] mg 00 First dose Medical on [facility] 12/01/20 at 0900, Until Discontinu ed, Routine pantoprazol Yes 40mg 40 mg, Univ ers e 12-01 Oral, ity of (PROTONIX) 14:00: DAILY, [place] EC tablet First dose Medi blanquita [address] [facility] 12/01/20 at 0900, Until Discontinu ed, Routine clopidogreL Yes [id number] 75mg 75 mg, Univers (PLAVIX) 12-01 Oral, ity of tablet 75 14:00: DAILY, [place] mg 00 First dose Medical on [facility] 12/01/20 at 0900, Until Discontinu ed, Routine
body team member approving Restricted medication : [place] aspirin Yes [id number] 81mg 81 mg, [facility] ers chewable 12-01 Oral, ity of tablet 81 14:00: DAILY, [place] mg 00 First dose Medical on [facility] 12/01/20 at 0900, Until Discontinu ed, Routine heparin Yes 5000U 5,000 Univers (porcine) 12-01 Units, ity of injection 13:00: Subcut[place]o [place] 5,000 Units 00 us, Q12H, Med ical First dose Branch on [facility] 12/01/20 at 0800, Until Discontinu ed, Routine gabapentin Yes 800mg 800 mg, Uni vers (NEURONTIN) 12-01 Oral, TID, it y of tablet 800 13:00: First dose [place] mg 00 on [facility] 12/01/20 at Branch 0800, Until Discontinu ed, Routine magnesium 2020- No 4g 4 g, IV [facility] ers sulfate in 12-01 Piggyback, it y of water 4 12:45: 14:07 ONCE, 1 [place] gram/50 mL 00 :00 dose, [facility] Medi blanquita (8 %) IV 12/01/20 at Branch Piggyback 4 0745, g Routine insulin NPH Yes 40U 40 Units, U nivers and regular 12-01 Subcutaneo it y of human 70-30 12:30: us, BIDAC, [place] (HUMULIN 00 First dose Medic al 70-30 U-100 on Mon [place] INSULIN) 12/01/20 at 100 unit/mL 0730, (70-30) Until injection Discontinu 40 Units ed, Routine NaCl 0.9% 2020- No 1000mL at 20 [facility] ers (NS) IV 12-01 07-06 mL/hr, IV ity of infusion 05:00: 11:40 Infusion, [place] 1,000 mL 00 :32 CONTINUOUS Medic al , Starting Branch Mon12/01/20 at 0000, Until Mon12/01/20 at 0640, Routine&lt ;br>To be infused to keep line open
Sliding 2020- Yes Subcutaneo [facility] ers Scale 12-01 us, TID ity of Insulin - 02:00: MEALS+HS, [place] Lispro 00 First dose Medical (HumaLOG) + on Mon [place] [facility] 11/30/20 at Testing 2100, Until Discontinu ed, Routine mirtazapine Yes 15mg 15 mg, [facility] ers (REMERON) 12-01 Oral, QHS, ity of tablet 15 02:00: First dose [place] mg 00 on Mon [facility] 11/30/20 at Branch 2100, Until Discontinu [...] injection 41 Starting Medica l 25 mL Mon11/30/20 Branch at 2032, Until Discontinu ed, TRANG, Blood Glucose < or = 70 mg/dL and patient is unable to swallow or has mental status changes. aspirin 81 Yes 81mg Take 1 Unive rs mg chewable 12-01 tablet by ity of tablet 01:28: mouth [place] 04 daily. [facility] Branch acetaminoph Yes 650mg 650 mg, Un cali en 12-01 Oral, ity of (TYLENOL) 01:27: Q6HPRN, [place] tablet 650 42 Starting Medic al mg Mon11/30/20 Branch at 7, Until Discontinu ed, Routine, Pain (scale 1-3) FENTanyl PF Yes Slow IV Uni vers (SUBLIMAZE 7-05 Push, PRN, ity of (PF)) 22:46: Starting [place] injection 07 Mon11/30/20 Medi blanquita at 1746, Branch Until Discontinu ed, Routine clopidogreL 2020- No Oral, Univ ers (PLAVIX) 11-30 TITRATE - ity o f tablet 22:25: 22:25 FOR [place] 49 :49 PROCEDURE Medical USE, 1 Branch dose, Starting Mon11/30/20 at 1725, Until Mon11/30/20 at 1725, Routine FENTanyl PF 2020- No Slow IV Un cali (SUBLIMAZE 11-30-05 Push, ity of (PF)) 22:08: 22:08 TITRATE - [place] injection 10 :10 FOR Medical PROCEDURE Branch USE, 1 dose, Starting Mon11/30/20 at 1708, Until Mon11/30/20 at 1708, Routine heparin 2020- No Slow IV Univer s 1,000 11-3005 Push, ity of unit/mL 21:55: 21:55 TITRATE [...] 2020- No IV Push, Uni vers (VERSED) 11-30-05 TITRATE - ity o f injection 21:50: 21:50 FOR [place] 07 :07 PROCEDURE Medical USE, 1 Branch dose, Starting Mon11/30/20 at 1650, Until Mon11/30/20 at 1650, Routine FENTanyl PF 2020- No Slow IV Un cali (SUBLIMAZE 11-30 Push, ity of (PF)) 21:17: [...] ity o f injection 20:53: 20:53 FOR [place] 37 :37 PROCEDURE Medical USE, 1 Branch dose, Starting Mon11/30/20 at 1553, Until Mon11/30/20 at 1553, Routine insulin 2020- No [id number] 10U 10 Units, Univers lispro 11-30 Subcutaneo ity of (human) 18:00: 18:15 us, ONCE, [place] (HumaLOG 00 :00 1 dose, Medical U-100) Mon11/30/20 Branch injection at 1300, 10 Units Routine ezetimibe Yes [id number] 10mg Take 1 U nivers 10 mg 6-18 tablet by ity of tablet 00:00: mouth [place] 00 daily. Medical Branch furosemide Yes [id number] 1 tablet Univers 20 mg 6-18 02 as needed ity of tablet 00:00: for leg [place] 00 swelling Medical Branch ezetimibe Yes [id number] 10mg Take 1 U nivers 10 mg 6-18 tablet by ity of tablet 00:00: mouth [place] 00 daily. Medical Branch furosemide Yes [id number] 1 tablet [facility] 20 mg 6-18 02 as needed ity of tablet 00:00: for leg [place] 00 swelling Medical Branch ezetimibe Yes [id number] 10mg Take 1 U nivers 10 mg 6-18 tablet by ity of tablet 00:00: mouth [place] 00 daily. Medical Branch furosemide 1-0 Yes [id number] 1 tablet [facility] 20 mg 6-18 02 as needed ity of tablet 00:00: for leg swelling Medical Branch ezetimibe 1-0 Yes [id number] 10mg Take 1 U nivers 10 mg 6-18 tablet by ity of tablet 00:00: mouth [place] 00 daily. Medical Branch furosemide 1-0 Yes [id number] 1 tablet [facility] 20 mg 6-18 02 as needed ity of tablet 00:00: for leg swelling Medical Branch ezetimibe 1-0 Yes [id number] 10mg Take 1 U nivers 10 mg 6-18 tablet by ity of tablet 00:00: mouth [place] 00 daily. Medical Branch furosemide 1-0 Yes [id number] 1 tablet [facility] 20 mg 6-18 02 as needed ity of tablet 00:00: for leg swelling Medical Branch ezetimibe 1-0 Yes [id number] 10mg Take 1 U nivers 10 mg 6-18 tablet by ity of tablet 00:00: mouth [place] 00 daily. Medical Branch furosemide 1-0 Yes [id number] 1 tablet [facility] 20 mg 6-18 02 as needed ity of tablet 00:00: for leg swelling Medical Branch ezetimibe 1-0 Yes [id number] 10mg Take 1 U nivers 10 mg 6-18 tablet by ity of tablet 00:00: mouth [place] 00 daily. Medical Branch furosemide 2021-0 Yes [id number] 1 tablet Univers 20 mg 6-18 02 as needed ity of tablet 00:00: for leg swelling Medical Branch ezetimibe 1-0 Yes [id number] 10mg Take 1 U nivers 10 mg 6-18 tablet by ity of tablet 00:00: mouth [place] 00 daily. Medical Branch furosemide 2021-0 Yes [id number] 1 tablet Univers 20 mg 6-18 02 as needed ity of tablet 00:00: for leg [place] swelling Medical Branch ezetimibe 2021-0 Yes [id number] 10mg Take 1 U nivers 10 mg 6-18 tablet by ity of tablet 00:00: mouth [place] 00 daily. Medical Branch furosemide 2021-0 Yes [id number] 1 tablet [facility] 20 mg 6-18 02 as needed ity of tablet 00:00: for leg swelling Medical Branch ezetimibe 2021-0 Yes [id number] 10mg Take 1 U nivers 10 mg 6-18 tablet by ity of tablet 00:00: mouth [place] 00 daily. Medical Branch furosemide 2021-0 Yes [id number] 1 tablet [facility] 20 mg 6-18 02 as needed ity of tablet 00:00: for leg swelling Medical Branch ezetimibe 2021-0 Yes [id number] 10mg Take 1 U nivers 10 mg 6-18 tablet by ity of tablet 00:00: mouth [place] 00 daily. Medical Branch furosemide 1-0 Yes [id number] 1 tablet [facility] 20 mg 6-18 02 as needed ity of tablet 00:00: for leg swelling Medical Branch ezetimibe 1-0 Yes [id number] 10mg Take 1 U nivers 10 mg 6-18 tablet by ity of tablet 00:00: mouth [place] 00 daily. Medical Branch furosemide 1-0 Yes [id number] 1 tablet [facility] 20 mg 6-18 02 as needed ity of tablet 00:00: for leg swelling Medical Branch ezetimibe 2021-0 Yes [id number] 10mg Take 1 U nivers 10 mg 6-18 tablet by ity of tablet 00:00: mouth [place] 00 daily. Medical Branch furosemide 2021-0 Yes [id number] 1 tablet [facility] 20 mg 6-18 02 as needed ity of tablet 00:00: for leg swelling Medical Branch ezetimibe 2021-0 Yes [id number] 10mg Take 1 U nivers 10 mg 6-18 tablet by ity of tablet 00:00: mouth [place] 00 daily. Medical Branch furosemide 2021-0 Yes [id number] 1 tablet [facility] 20 mg 6-18 02 as needed ity of tablet 00:00: for leg swelling Medical Branch ezetimibe 2021-0 Yes [id number] 10mg Take 1 U nivers 10 mg 6-18 tablet by ity of tablet 00:00: mouth [place] 00 daily. Medical Branch furosemide 1-0 Yes [id number] 1 tablet [facility] 20 mg 6-18 02 as needed ity of tablet 00:00: for leg swelling Medical Branch ezetimibe 2020-0 Yes [id number] 10mg Take 1 U nivers 10 mg 6-18 tablet by ity of tablet 00:00: mouth [place] 00 daily. Medical Branch furosemide 2020-0 Yes [id number] 1 tablet [facility] 20 mg 6-18 02 as needed ity of tablet 00:00: for leg swelling Medical Branch ezetimibe 2020-0 Yes [id number] 10mg Take 1 U nivers 10 mg 6-18 tablet by ity of tablet 00:00: mouth [place] 00 daily. Medical Branch furosemide 2020-0 Yes [id number] 1 tablet [facility] 20 mg 6-18 02 as needed ity of tablet 00:00: for leg swelling Medical Branch ezetimibe 2020-0 Yes [id number] 10mg Take 1 U nivers 10 mg 6-18 tablet by ity of tablet 00:00: mouth [place] 00 daily. Medical Branch furosemide 2020-0 Yes [id number] 1 tablet [facility] 20 mg 6-18 02 as needed ity of tablet 00:00: for leg swelling Medical Branch ezetimibe 2020-0 Yes [id number] 10mg Take 1 U nivers 10 mg 6-18 tablet by ity of tablet 00:00: mouth [place] 00 daily. Medical Branch furosemide 2020-0 Yes [id number] 1 tablet [facility] 20 mg 6-18 02 as needed ity of tablet 00:00: for leg [place] swelling Medical Branch insulin NPH 2020-0 Yes [id number] 40U inject Univers and regular 5-12 40-50 ity of human 70-30 00:00: Units [place] (NOVOLIN 00 under the Medica l 70/30 U-100 skin 2 Branch INSULIN) (two) 100 unit/mL times (70-30) daily injection before breakfast and dinner. FREESTYLE 2020-0 Yes [id number] 1{kit} 1 Kit Univers RASHARD 2 5-12 every 14 ity of SENSOR Kit 00:00: (fourteen) [place] 00 days. Medical Branch insulin NPH 2020-0 Yes [id number] 40U inject Univers and regular 5-12 40-50 ity of human 70-30 00:00: Units (NOVOLIN 00 under the Medica l 70/30 U-100 skin 2 Branch INSULIN) (two) 100 unit/mL times (70-30) daily injection before breakfast and dinner. FREESTYLE Yes [id number] 1{kit} 1 Kit Univers RASHARD 2 5-12 every 14 ity of SENSOR Kit 00:00: (fourteen) [place] days. Medical Branch insulin NPH Yes [id number] 40U inject Univers and regular 5-12 40-50 ity of human 70-30 00:00: Units [place] (NOVOLIN 00 under the Medica l 70/30 U-100 skin 2 Branch INSULIN) (two) 100 unit/mL times (70-30) daily injection before breakfast and dinner. FREESTYLE Yes [id number] 1{kit} 1 Kit Univers RASHARD 2 5-12 every 14 ity of SENSOR Kit 00:00: (fourteen) [place] days. Medical Branch insulin NPH Yes [id number] 40U inject Univers and regular 5-12 40-50 ity of human 70-30 00:00: Units [place] (NOVOLIN 00 under the Medica l 70/30 U-100 skin 2 Branch INSULIN) (two) 100 unit/mL times (70-30) daily injection before breakfast and dinner. insulin NPH Yes [id number] 40U inject Univers and regular 5-12 40-50 ity of human 70-30 00:00: Units [place] (NOVOLIN 00 under the Medica l 70/30 U-100 skin 2 Branch INSULIN) (two) 100 unit/mL times (70-30) daily injection before breakfast and dinner. insulin NPH Yes [id number] 40U inject Univers and regular 5-12 40-50 ity of human 70-30 00:00: Units [place] (NOVOLIN 00 under the Medica l 70/30 U-100 skin 2 Branch INSULIN) (two) 100 unit/mL times (70-30) daily injection before breakfast and dinner. insulin NPH Yes [id number] 40U inject Univers and regular 5-12 40-50 ity of human 70-30 00:00: Units [place] (NOVOLIN 00 under the Medica l 70/30 U-100 skin 2 Branch INSULIN) (two) 100 unit/mL times (70-30) daily injection before breakfast and dinner. insulin NPH Yes [id number] 40U inject Univers and regular 5-12 40-50 ity of human 70-30 00:00: Units [place] (NOVOLIN 00 under the Medica l 70/30 U-100 skin 2 Branch INSULIN) (two) 100 unit/mL times (70-30) daily injection before breakfast and dinner. insulin NPH 2020-0 Yes [id number] 40U inject Univers and regular 5-12 40-50 ity of human 70-30 00:00: Units [place] (NOVOLIN 00 under the Medica l 70/30 U-100 skin 2 Branch INSULIN) (two) 100 unit/mL times (70-30) daily injection before breakfast and dinner. insulin NPH 0 Yes [id number] 40U inject Univers and regular 5-12 40-50 ity of human 70-30 00:00: Units [place] (NOVOLIN 00 under the Medica l 70/30 U-100 skin 2 Branch INSULIN) (two) 100 unit/mL times (70-30) daily injection before breakfast and dinner. insulin NPH 0 Yes [id number] 40U inject Univers and regular 5-12 40-50 ity of human 70-30 00:00: Units [place] (NOVOLIN 00 under the Medica l 70/30 U-100 skin 2 Branch INSULIN) (two) 100 unit/mL times (70-30) daily injection before breakfast and dinner. insulin NPH 0 Yes [id number] 40U inject Univers and regular 5-12 40-50 ity of human 70-30 00:00: Units [place] (NOVOLIN 00 under the Medica l 70/30 U-100 skin 2 Branch INSULIN) (two) 100 unit/mL times (70-30) daily injection before breakfast and dinner. insulin NPH 2020-0 Yes [id number] 40U inject Univers and regular 5-12 40-50 ity of human 70-30 00:00: Units [place] (NOVOLIN 00 under the Medica l 70/30 U-100 skin 2 Branch INSULIN) (two) 100 unit/mL times (70-30) daily injection before breakfast and dinner. insulin NPH 0 Yes [id number] 40U inject Univers and regular 5-12 40-50 ity of human 70-30 00:00: Units [place] (NOVOLIN 00 under the Medica l 70/30 U-100 skin 2 Branch INSULIN) (two) 100 unit/mL times (70-30) daily injection before breakfast and dinner. insulin NPH Yes [id number] 40U inject Univers and regular 5-12 40-50 ity of human 70-30 00:00: Units [place] (NOVOLIN 00 under the Medica l 70/30 U-100 skin 2 Branch INSULIN) (two) 100 unit/mL times (70-30) daily injection before breakfast and dinner. insulin NPH 0 Yes [id number] 40U inject Univers and regular 5-12 40-50 ity of human 70-30 00:00: Units [place] (NOVOLIN 00 under the Medica l 70/30 U-100 skin 2 Branch INSULIN) (two) 100 unit/mL times (70-30) daily injection before breakfast and dinner. insulin NPH Yes [id number] 40U inject Univers and regular 5-12 40-50 ity of human 70-30 00:00: Units [place] (NOVOLIN 00 under the Medica l 70/30 U-100 skin 2 Branch INSULIN) (two) 100 unit/mL times (70-30) daily injection before breakfast and dinner. insulin NPH Yes [id number] 40U inject Univers and regular 5-12 40-50 ity of human 70-30 00:00: Units [place] (NOVOLIN 00 under the Medica l 70/30 U-100 skin 2 Branch INSULIN) (two) 100 unit/mL times (70-30) daily injection before breakfast and dinner. insulin NPH 0 Yes [id number] 40U inject Univers and regular 5-12 40-50 ity of human 70-30 00:00: Units [place] (NOVOLIN 00 under the Medica l 70/30 U-100 skin 2 Branch INSULIN) (two) 100 unit/mL times (70-30) daily injection before breakfast and dinner. insulin NPH 0 Yes [id number] 40U inject Univers and regular 5-12 40-50 ity of human 70-30 00:00: Units [place] (NOVOLIN 00 under the Medica l 70/30 U-100 skin 2 Branch INSULIN) (two) 100 unit/mL times (70-30) daily injection before breakfast and dinner. insulin NPH Yes [id number] 40U inject Univers and regular 5-12 40-50 ity of human 70-30 00:00: Units (NOVOLIN 00 under the Medica l 70/30 U-100 skin 2 Branch INSULIN) (two) 100 unit/mL times (70-30) daily injection before breakfast and dinner. insulin NPH Yes [id number] 40U inject Univers and regular 5-12 40-50 ity of human 70-30 00:00: Units (NOVOLIN 00 under the Medica l 70/30 U-100 skin 2 Branch INSULIN) (two) 100 unit/mL times (70-30) daily injection before breakfast and dinner. insulin NPH Yes [id number] 40U inject Univers and regular 5-12 40-50 ity of human 70-30 00:00: Units (NOVOLIN 00 under the Medica l 70/30 U-100 skin 2 Branch INSULIN) (two) 100 unit/mL times (70-30) daily injection before breakfast and dinner. FREESTYLE 2020- No [id number] 1{kit} 1 Kit Univers RASHARD 2 10-07-18 every 14 ity of SENSOR Kit 00:00: 00:00 (fourteen) [place] 00 :00 days. Medical Branch FREESTYLE 2020- No [id number] 1{kit} 1 Kit [facility] RASHARD 2 10-07-18 every 14 ity of SENSOR Kit 00:00: 00:00 (fourteen) [place] 00 :00 days. Medical Branch mirtazapine Yes [id number] 15mg Take 1 [facility] 15 mg 5-06 tablet by ity of tablet 00:00: mouth at [place] [address] bedtime. Medical Branch atorvastati Yes [id number] 80mg Take 1 Univers n 80 mg 5-06 tablet by ity of tablet 00:00: mouth at [place] [address] bedtime. Medical Branch glipiZIDE Yes [id number] 5mg Take 0.5 Univers 10 mg 5-06 tablets by ity of tablet 00:00: mouth 2 00 (two) Medical times Branch daily before breakfast and dinner. mirtazapine Yes [id number] 15mg Take 1 [facility] 15 mg 5-06 tablet by ity of tablet 00:00: mouth at [place] 00 bedtime. Medical Branch atorvastati Yes [id number] 80mg Take 1 Univers n 80 mg 5-06 tablet by ity of tablet 00:00: mouth at [place] 00 bedtime. Medical Branch glipiZIDE Yes [id number] 5mg Take 0.5 Univers 10 mg 5-06 tablets by ity of tablet 00:00: mouth 2 [place] (two) Medical times Branch daily before breakfast and dinner. mirtazapine Yes [id number] 15mg Take 1 Univers 15 mg 5-06 tablet by ity of tablet 00:00: mouth at [place] [address] bedtime. Medical Branch atorvastati Yes [id number] 80mg Take 1 Univers n 80 mg 5-06 tablet by ity of tablet 00:00: mouth at [place] [address] bedtime. Medical Branch mirtazapine Yes [id number] 15mg Take 1 [facility] 15 mg 5-06 tablet by ity of tablet 00:00: mouth at [place] [address] bedtime. Medical Branch atorvastati Yes [id number] 80mg Take 1 Univers n 80 mg 5-06 tablet by ity of tablet 00:00: mouth at [place] [address] bedtime. Medical Branch mirtazapine Yes [id number] 15mg Take 1 [facility] 15 mg 5-06 tablet by ity of tablet 00:00: mouth at [place] [address] bedtime. Medical Branch atorvastati Yes [id number] 80mg Take 1 Univers n 80 mg 5-06 tablet by ity of tablet 00:00: mouth at [place] 00 bedtime. Medical Branch mirtazapine Yes [id number] 15mg Take 1 Univers 15 mg 5-06 tablet by ity of tablet 00:00: mouth at [place] 00 bedtime. Medical Branch atorvastati Yes [id number] 80mg Take 1 Univers n 80 mg 5-06 tablet by ity of tablet 00:00: mouth at [place] [address] bedtime. Medical Branch mirtazapine Yes [id number] 15mg Take 1 [facility] 15 mg 5-06 tablet by ity of tablet 00:00: mouth at [place] 00 bedtime. Medical Branch atorvastati Yes [id number] 80mg Take 1 Univers n 80 mg 5-06 tablet by ity of tablet 00:00: mouth at [place] 00 bedtime. Medical Branch mirtazapine 0 Yes [id number] 15mg Take 1 [facility] 15 mg 5-06 tablet by ity of tablet 00:00: mouth at [place] 00 bedtime. Medical Branch atorvastati 0 Yes [id number] 80mg Take 1 Univers n 80 mg 5-06 tablet by ity of tablet 00:00: mouth at [place] 00 bedtime. Medical Branch mirtazapine 0 Yes [id number] 15mg Take 1 [facility] 15 mg 5-06 tablet by ity of tablet 00:00: mouth at [place] 00 bedtime. Medical Branch atorvastati 0 Yes [id number] 80mg Take 1 Univers n 80 mg 5-06 tablet by ity of tablet 00:00: mouth at [place] [address] bedtime. Medical Branch mirtazapine 0 Yes [id number] 15mg Take 1 Univers 15 mg 5-06 tablet by ity of tablet 00:00: mouth at [place] 00 bedtime. Medical Branch atorvastati 0 Yes [id number] 80mg Take 1 Univers n 80 mg 5-06 tablet by ity of tablet 00:00: mouth at [place] [address] bedtime. Medical Branch mirtazapine 0 Yes [id number] 15mg Take 1 Univers 15 mg 5-06 tablet by ity of tablet 00:00: mouth at [place] [address] bedtime. Medical Branch atorvastati 0 Yes [id number] 80mg Take 1 Univers n 80 mg 5-06 tablet by ity of tablet 00:00: mouth at [place] [address] bedtime. Medical Branch mirtazapine 0 Yes [id number] 15mg Take 1 Univers 15 mg 5-06 tablet by ity of tablet 00:00: mouth at [place] [address] bedtime. Medical Branch atorvastati 0 Yes [id number] 80mg Take 1 Univers n 80 mg 5-06 tablet by ity of tablet 00:00: mouth at [place] [address] bedtime. Medical Branch mirtazapine 0 Yes [id number] 15mg Take 1 Univers 15 mg 5-06 tablet by ity of tablet 00:00: mouth at [place] 00 bedtime. Medical Branch atorvastati 2020-0 Yes [id number] 80mg Take 1 Univers n 80 mg 5-06 tablet by ity of tablet 00:00: mouth at [place] 00 bedtime. Medical Branch mirtazapine 2020-0 Yes [id number] 15mg Take 1 Univers 15 mg 5-06 tablet by ity of tablet 00:00: mouth at [place] 00 bedtime. Medical Branch atorvastati 2020-0 Yes [id number] 80mg Take 1 Univers n 80 mg 5-06 tablet by ity of tablet 00:00: mouth at [place] 00 bedtime. Medical Branch mirtazapine 2020-0 Yes [id number] 15mg Take 1 Univers 15 mg 5-06 tablet by ity of tablet 00:00: mouth at [place] 00 bedtime. Medical Branch atorvastati 0 Yes [id number] 80mg Take 1 Univers n 80 mg 5-06 tablet by ity of tablet 00:00: mouth at [place] [address] bedtime. Medical Branch mirtazapine 0 Yes [id number] 15mg Take 1 Univers 15 mg 5-06 tablet by ity of tablet 00:00: mouth at [place] [address] bedtime. Medical Branch atorvastati 0 Yes [id number] 80mg Take 1 Univers n 80 mg 5-06 tablet by ity of tablet 00:00: mouth at [place] [address] bedtime. Medical Branch mirtazapine 0 Yes [id number] 15mg Take 1 Univers 15 mg 5-06 tablet by ity of tablet 00:00: mouth at [place] [address] bedtime. Medical Branch atorvastati 0 Yes [id number] 80mg Take 1 Univers n 80 mg 5-06 tablet by ity of tablet 00:00: mouth at [place] [address] bedtime. Medical Branch mirtazapine 0 Yes [id number] 15mg Take 1 Univers 15 mg 5-06 tablet by ity of tablet 00:00: mouth at [place] 00 bedtime. Medical Branch atorvastati 0 Yes [id number] 80mg Take 1 Univers n 80 mg 5-06 tablet by ity of tablet 00:00: mouth at [place] [address] bedtime. Medical Branch mirtazapine 2020-0 Yes [id number] 15mg Take 1 Univers 15 mg 5-06 tablet by ity of tablet 00:00: mouth at [place] [address] bedtime. Medical Branch atorvastati Yes [id number] 80mg Take 1 Univers n 80 mg 5-06 tablet by ity of tablet 00:00: mouth at [place] [address] bedtime. Medical Branch mirtazapine 0 Yes [id number] 15mg Take 1 Univers 15 mg 5-06 tablet by ity of tablet 00:00: mouth at [place] [address] bedtime. Medical Branch atorvastati Yes [id number] 80mg Take 1 Univers n 80 mg 5-06 tablet by ity of tablet 00:00: mouth at [place] [address] bedtime. Medical Branch mirtazapine Yes [id number] 15mg Take 1 Univers 15 mg 5-06 tablet by ity of tablet 00:00: mouth at [place] [address] bedtime. Medical Branch atorvastati Yes [id number] 80mg Take 1 Univers n 80 mg 5-06 tablet by ity of tablet 00:00: mouth at [place] [address] bedtime. Medical Branch mirtazapine Yes [id number] 15mg Take 1 Univers 15 mg 5-06 tablet by ity of tablet 00:00: mouth at [place] [address] bedtime. Medical Branch mirtazapine Yes [id number] 15mg Take 1 Univers 15 mg 5-06 tablet by ity of tablet 00:00: mouth at [place] [address] bedtime. Medical Branch atorvastati Yes [id number] 80mg Take 1 Univers n 80 mg 5-06 tablet by ity of tablet 00:00: mouth at [place] [address] bedtime. Medical Branch atorvastati Yes [id number] 80mg Take 1 Univers n 80 mg 5-06 tablet by ity of tablet 00:00: mouth at [place] [address] bedtime. Medical Branch mirtazapine Yes [id number] 15mg Take 1 Univers 15 mg 5-06 tablet by ity of tablet 00:00: mouth at [place] [address] bedtime. Medical Branch atorvastati Yes [id number] 80mg Take 1 Univers n 80 mg 5-06 tablet by ity of tablet 00:00: mouth at [place] [address] bedtime. Medical Branch mirtazapine Yes [id number] 15mg Take 1 Univers 15 mg 5-06 tablet by ity of tablet 00:00: mouth at [place] 00 bedtime. Medical Branch atorvastati Yes [id number] 80mg Take 1 [facility] n 80 mg [...] [place] 00 [place] bedtime. 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 glipiZIDE Yes Type [...] [place] 00 involving bedtime. 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 glipiZIDE 2020- No [id number] 5mg Take 0.5 [facility] 10 mg 5-06 05-12 tablets by ity of tablet 00:00: 00:00 mouth 2 [place] 00 :00 (two) Medical times Branch daily before breakfast and dinner. glipiZIDE 2020- No [id number] 5mg Take 0.5 [facility] 10 mg 5-06 05-12 tablets by ity of tablet 00:00: 00:00 mouth 2 [place] 00 :00 (two) Medical times Branch daily before breakfast and dinner. fluconazole 2020- No [id number] 150mg Take 1 [facility] 150 mg 4-14 -17 tablet by ity of tablet 00:00: 04:59 mouth [place] 00 :00 every 72 Medical (seventy-t Branch wo) hours for 2 days. fluconazole 2020- No [id number] 150mg Take 1 [facility] 150 mg 4-14 -17 tablet by ity of tablet 00:00: 04:59 mouth [place] 00 :00 every 72 Medical (seventy-t Branch wo) hours for 2 days. fluconazole 2020- No [id number] 150mg Take 1 [facility] 150 mg 4-14 -17 tablet by ity of tablet 00:00: 04:59 mouth [place] 00 :00 every 72 Medical (seventy-t Branch wo) hours for 2 days. insulin NPH Yes 60U 60 Units, U nivers and regular 4-13 Subcutaneo it y of human 70-30 12:30: , [facility], [place] (HUMULIN 00 First dose Medic al 70-30 U-100 (after Branch INSULIN) last 100 unit/mL modificati (70-30) on) on Tue injection 09/08/20 at 60 Units 0730, Until Discontinu ed, Routine ezetimibe 2020- No [id number] 10mg Take 1 [facility] 10 mg -13 -14 tablet by ity of tablet 00:00: 04:59 mouth [place] 00 :00 daily for Medical 30 days. Branch insulin NPH 2020- No [id number] 60U inject 60 Univers and regular 4-13 05-14 Units ity of human 70-30 00:00: 04:59 under the [place] (NOVOLIN 00 :00 skin 2 Medical 70/30 U-100 (two) Branch INSULIN) times 100 unit/mL daily (70-30) before injection breakfast and dinner for 30 days. ezetimibe 2020- No [id number] 10mg Take 1 [facility] 10 mg -13 -14 tablet by ity of tablet 00:00: 04:59 mouth [place] 00 :00 daily for Medical 30 days. Branch insulin NPH 2020- No [id number] 60U inject 60 Univers and regular 4-13 05-14 Units ity of human 70-30 00:00: 04:59 under the [place] (NOVOLIN 00 :00 skin 2 Medical 70/30 U-100 (two) Branch INSULIN) times 100 unit/mL daily (70-30) before injection breakfast and dinner for 30 days. ezetimibe 2020-0 2020- No [id number] 10mg Take 1 [facility] 10 mg 4-13 05-14 tablet by ity of tablet 00:00: 04:59 mouth [place] 00 :00 daily for Medical 30 days. Branch insulin NPH 2020-2020- No [id number] 60U inject 60 Univers and regular 4-13 05-14 Units ity of human 70-30 00:00: 04:59 under the [place] (NOVOLIN 00 :00 skin 2 Medical 70/30 U-100 (two) Branch INSULIN) times 100 unit/mL daily (70-30) before injection breakfast and dinner for 30 days. ezetimibe 2020-0 2020- No [id number] 10mg Take 1 [facility] 10 mg 4-13 05-14 tablet by ity of tablet 00:00: 04:59 mouth [place] 00 :00 daily for Medical 30 days. Branch insulin NPH 2020- No [id number] 60U inject 60 Univers and regular 4-13 05-14 Units ity of human 70-30 00:00: 04:59 under the [place] (NOVOLIN 00 :00 skin 2 Medical 70/30 U-100 (two) Branch INSULIN) times 100 unit/mL daily (70-30) before injection breakfast and dinner for 30 days. ezetimibe 2020-0 2020- No [id number] 10mg Take 1 [facility] 10 mg 4-13 05-14 tablet by ity of tablet 00:00: 04:59 mouth [place] 00 :00 daily for Medical 30 days. Branch insulin NPH 2020-0 2020- No [id number] 60U inject 60 Univers and regular 4-13 05-14 Units ity of human 70-30 00:00: 04:59 under the [place] (NOVOLIN 00 :00 skin 2 Medical 70/30 U-100 (two) Branch INSULIN) times 100 unit/mL daily (70-30) before injection breakfast and dinner for 30 days. ezetimibe 2020- No [id number] 10mg Take 1 [facility] 10 mg 4-13 05-14 tablet by ity of tablet 00:00: 04:59 mouth [place] 00 :00 daily for Medical 30 days. Branch insulin NPH 2020- No [id number] 60U inject 60 Univers and regular 4-13 05-14 Units ity of human 70-30 00:00: 04:59 under the [place] (NOVOLIN 00 :00 skin 2 Medical 70/30 U-100 (two) Branch INSULIN) times 100 unit/mL daily (70-30) before injection breakfast and dinner for 30 days. ezetimibe 2020- No [id number] 10mg Take 1 [facility] 10 mg 4-13 05-14 tablet by ity of tablet 00:00: 04:59 mouth [place] 00 :00 daily for Medical 30 days. Branch insulin NPH 2020- No [id number] 60U inject 60 Univers and regular 4-13 05-14 Units ity of human 70-30 00:00: 04:59 under the [place] (NOVOLIN 00 :00 skin 2 Medical 70/30 U-100 (two) Branch INSULIN) times 100 unit/mL daily (70-30) before injection breakfast and dinner for 30 days. ezetimibe 2020- No [id number] 10mg Take 1 [facility] 10 mg 4-13 05-14 tablet by ity of tablet 00:00: 04:59 mouth [place] 00 :00 daily for Medical 30 days. Branch ezetimibe 2020- No [id number] 10mg Take 1 [facility] 10 mg 4-13 [...] human 70-30 00:00: 04:59 diabetes under the [place] (NOVOLIN 00 :00 mellitus skin 2 Medic [...] human 70-30 00:00: 04:59 diabetes under the [place] (NOVOLIN 00 :00 mellitus skin 2 Medic al 70/30 U-100 with (two) Branch INSULIN) hyperglycem times 100 unit/mL ia daily (70-30) before injection breakfast and dinner for 30 days. insulin NPH 2020- No [id number] 60U inject 60 Univers and regular 4-13 05-12 Units ity of human 70-30 00:00: 00:00 under the [place] (NOVOLIN 00 :00 skin 2 Medical 70/30 U-100 (two) Branch INSULIN) times 100 unit/mL daily (70-30) before injection breakfast and dinner for 30 days. insulin NPH 2020- No [id number] 60U inject 60 Univers and regular 4-13 05-12 Units ity of human 70-30 00:00: 00:00 under the [place] (NOVOLIN 00 :00 skin 2 Medical 70/30 [...] [place] 25 daily. Medical Branch aspirin 81 0 Yes 81mg Take 1 Unive rs mg [...] daily. Medical Branch insulin NPH 2020- No [id number] 90U inject 90 Univers and regular 4-12 05-13 Units ity of human 70-30 00:00: 04:59 under the [place] (NOVOLIN 00 :00 skin 2 Medical 70/30 U-100 (two) Branch INSULIN) times 100 unit/mL daily (70-30) before injection breakfast and dinner for 30 days. metoprolol 2020- No [id number] 50mg Take 0.5 [facility] succinate 4-05 02-13 tablets by ity of XL 100 mg 00:00: 04:59 mouth [place] 24 hr 00 :00 daily for Medical tablet 30 days. Branch glipiZIDE 2020- No [id number] 10mg Take 1 [facility] 10 mg 4- 05-13 tablet by ity of tablet 00:00: 04:59 mouth 2 [place] 00 :00 (two) Medical times Branch daily before breakfast and dinner for 30 days. SITagliptin 2020- No [id number] 100mg Take 1 [facility] 100 mg -05 02-13 tablet by ity of tablet 00:00: 04:59 mouth [place] :00 evening Medical meal for Branch 30 days. insulin NPH 2020- No [id number] 90U inject 90 Univers and regular 4-12 05-13 Units ity of human 70-30 00:00: 04:59 under the [place] (NOVOLIN 00 :00 skin 2 Medical 70/30 U-100 (two) Branch INSULIN) times 100 unit/mL daily (70-30) before injection breakfast and dinner for 30 days. metoprolol 2020- No [id number] 50mg Take 0.5 [facility] succinate 4-12 05-13 tablets by ity of XL 100 mg 00:00: 04:59 mouth [place] 24 hr 00 :00 daily for Medical tablet 30 days. Branch glipiZIDE 2020- No [id number] 10mg Take 1 [facility] 10 mg 4-12 05-13 tablet by ity of tablet 00:00: 04:59 mouth 2 [place] 00 :00 (two) Medical times Branch daily before breakfast and dinner for 30 days. SITagliptin 2020- No [id number] 100mg Take 1 [facility] 100 mg 4-05 02-13 tablet by ity of tablet 00:00: 04:59 mouth [place] 00 :00 evening Medical meal for Branch 30 days. insulin NPH 2020- No [id number] 90U inject 90 Univers and regular 4-12 05-13 Units ity of human 70-30 00:00: 04:59 under the [place] (NOVOLIN 00 :00 skin 2 Medical 70/30 U-100 (two) Branch INSULIN) times 100 unit/mL daily (70-30) before injection breakfast and dinner for 30 days. metoprolol 2020- No [id number] 50mg Take 0.5 [facility] succinate 4-05 02-13 tablets by ity of XL 100 mg 00:00: 04:59 mouth [place] 24 hr 00 :00 daily for Medical tablet 30 days. Branch glipiZIDE 2020- No [id number] 10mg Take 1 [facility] 10 mg 09-07-13 tablet by ity of tablet 00:00: 04:59 mouth 2 [place] 00 :00 (two) Medical times [place] daily before breakfast and dinner for 30 days. SITagliptin 2020- No [id number] 100mg Take 1 [facility] 100 mg 09-07-13 tablet by ity of tablet 00:00: 04:59 mouth [place] 00 :00 evening Medical meal for Branch 30 days. insulin NPH 2020- No [id number] 90U inject 90 Univers and regular 4-12 05-13 Units ity of human 70-30 00:00: 04:59 under the [place] (NOVOLIN 00 :00 skin 2 Medical 70/30 U-100 (two) Branch INSULIN) times 100 unit/mL daily (70-30) before injection breakfast and dinner for 30 days. metoprolol 2020- No [id number] 50mg Take 0.5 [facility] succinate 4- 05-13 tablets by ity of XL 100 mg 00:00: 04:59 mouth [place] 24 hr 00 :00 daily for Medical tablet 30 days. Branch glipiZIDE No [id number] 10mg Take 1 [facility] 10 mg 4-12 05-13 tablet by ity of tablet 00:00: 04:59 mouth 2 [place] 00 :00 (two) Medical times [place] daily before breakfast and dinner for 30 days. SITagliptin 2020- No [id number] 100mg Take 1 [facility] 100 mg 4-12 05-13 tablet by ity of tablet 00:00: 04:59 mouth with [place] 00 :00 evening Medical meal for Branch 30 days. insulin NPH No [id number] 90U inject 90 Univers and regular 4-12 05-13 Units ity of human 70-30 00:00: 04:59 under the [place] (NOVOLIN 00 :00 skin 2 Medical 70/30 U-100 (two) [place] INSULIN) times 100 unit/mL daily (70-30) before injection breakfast and dinner for 30 days. metoprolol 2020- No [id number] 50mg Take 0.5 [facility] succinate 4- 05-13 tablets by ity of XL 100 mg 00:00: 04:59 mouth [place] 24 hr 00 :00 daily for Medical tablet 30 days. [place] glipiZIDE No [id number] 10mg Take 1 [facility] 10 mg 4- 05-13 tablet by ity of tablet 00:00: 04:59 mouth 2 [place] 00 :00 (two) Medical times [place] daily before breakfast and dinner for 30 days. SITagliptin 2020- No [id number] 100mg Take 1 [facility] 100 mg 4- 05-13 tablet by ity of tablet 00:00: 04:59 mouth with [place] 00 :00 evening Medical meal for Branch 30 days. metoprolol 2020- No [id number] 50mg Take 0.5 [facility] succinate 4-12 05-13 tablets by ity of XL 100 mg 00:00: 04:59 mouth [place] 24 hr 00 :00 daily for Medical tablet 30 days. [place] SITagliptin 2020- No [id number] 100mg Take 1 [facility] 100 mg 4-12 05-13 tablet by ity of tablet 00:00: 04:59 mouth [place] 00 :00 evening Medical meal for Branch 30 days. metoprolol 2020- No [id number] 50mg Take 0.5 [facility] succinate 09-07-13 tablets by ity of XL 100 mg 00:00: 04:59 mouth [place] 24 hr 00 :00 daily for Medical tablet 30 days. Branch SITagliptin 2020- No [id number] 100mg Take 1 [facility] 100 mg 09-07-13 tablet by ity of tablet 00:00: 04:59 mouth [place] 00 :00 evening Medical meal for Branch 30 days. metoprolol 2020- No [id number] 50mg Take 0.5 [facility] succinate 09-07-13 tablets by ity of XL 100 mg 00:00: 04:59 mouth [place] 24 hr 00 :00 daily for Medical tablet 30 days. Branch metoprolol 2020- No [id number] 50mg Take 0.5 [facility] succinate 09-07 tablets by ity of XL 100 mg 00:00: 04:59 mouth [place] 24 hr 00 :00 daily for Medical tablet 30 days. Branch metoprolol 2020- No Coronary 50mg Take 0.5 [facility] succinate 09-07- artery tablets by i ty of XL 100 mg 00:00: 04:59 disease mouth [place] 24 hr 00 :00 involving daily for Medi blanquita tablet jamul 30 days. 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 ia SITagliptin 2020- No [id number] 100mg Take 1 [facility] 100 mg 4-12 05-12 tablet by ity of tablet 00:00: 00:00 mouth with [place] 00 :00 evening Medical meal for Branch 30 days. SITagliptin 2020- No [id number] 100mg Take 1 [facility] 100 mg 4-12 05-12 tablet by ity of tablet 00:00: 00:00 mouth [place] 00 :00 evening Medical meal for Branch 30 days. insulin NPH 2020- No [id number] 90U inject 90 Univers and regular 4-12 05-06 Units ity of human 70-30 00:00: 00:00 under the [place] (NOVOLIN 00 :00 skin 2 Medical 70/30 U-100 (two) Branch INSULIN) times 100 unit/mL daily (70-30) before injection breakfast and dinner for 30 days. glipiZIDE 2020- No [id number] 10mg Take 1 [facility] 10 mg 4-12 05-06 tablet by ity of tablet 00:00: 00:00 mouth 2 [place] 00 :00 (two) Medical times Branch daily before breakfast and dinner for 30 days. insulin NPH 2020- No [id number] 90U inject 90 Univers and regular 4-12 05-06 Units ity of human 70-30 00:00: 00:00 under the [place] (NOVOLIN 00 :00 skin 2 Medical 70/30 U-100 (two) Branch INSULIN) times 100 unit/mL daily (70-30) before injection breakfast and dinner for 30 days. glipiZIDE 2020- No [id number] 10mg Take 1 [facility] 10 mg 4-12 05-06 tablet by ity of tablet 00:00: 00:00 mouth 2 [place] 00 :00 (two) Medical times Branch daily before breakfast and dinner for 30 days. insulin NPH 2020- No Uncontrolle 90U inject 90 Univers and regular 4-12 05-06 d type 2 Units it y of human 70-30 00:00: 00:00 diabetes under the [place] (NOVOLIN 00 :00 mellitus skin 2 Medic al 70/30 U-100 with (two) Branch INSULIN) hyperglycem times 100 unit/mL ia daily (70-30) before injection breakfast and dinner for 30 days. glipiZIDE 2020- No Uncontrolle 10mg Take 1 [facility] 10 mg 4- 05-06 d type 2 tablet by ity of tablet 00:00: 00:00 diabetes mouth 2 [place] 00 :00 mellitus (two) Medical with times Branch hyperglycem daily ia before breakfast and dinner for 30 days. insulin NPH 2020- No Uncontrolle 90U inject 90 Univers and regular - 05-06 d type 2 Units it y of human 70-30 00:00: 00:00 diabetes under the [place] (NOVOLIN 00 :00 mellitus skin 2 Medic al 70/30 U-100 with (two) Branch INSULIN) hyperglycem times 100 unit/mL ia daily (70-30) before injection breakfast and dinner for 30 days. glipiZIDE No Uncontrolle 10mg Take 1 [facility] 10 mg - 05-06 d type 2 tablet by ity of tablet 00:00: 00:00 diabetes mouth 2 [place] 00 :00 mellitus (two) Medical with times Branch hyperglycem daily ia before breakfast and dinner for 30 days. lactobacill 2020- No [id number] 1{tbl} Take 1 Univers us -05 01-23 tablet by ity of acidophilus 00:00: 04:59 mouth 2 [place] 25 million 00 :00 (two) Medical cell -100 times Branch mg captab daily for 10 days. lactobacill 2020- No [id number] 1{tbl} Take 1 [facility] us 4-05 01-23 tablet by ity of acidophilus 00:00: 04:59 mouth 2 [place] 25 million 00 :00 (two) Medical cell -100 times Branch mg captab daily for 10 days. lactobacill 2020- No [id number] 1{tbl} Take 1 [facility] us 4-05 01-23 tablet by ity of acidophilus 00:00: 04:59 mouth 2 [place] 25 million 00 :00 (two) Medical cell -100 times Branch mg captab daily for 10 days. metroNIDAZO 2020- No [id number] 500mg Take 1 Univers LE 500 mg 09-07 tablet by ity of tablet 00:00: 04:59 mouth 2 [place] 00 :00 (two) Medical times Branch daily for 6 days. ciprofloxac 2020- No [id number] 750mg Take 1 Univers in HCl 750 09-07 tablet by ity of mg tablet 00:00: 04:59 mouth [place] 00 :00 every 12 Medical (twelve) Branch hours for 6 days. metroNIDAZO 2020- No [id number] 500mg Take 1 [facility] LE 500 mg 09-07 tablet by ity of tablet 00:00: 04:59 mouth 2 [place] 00 :00 (two) Medical times Branch daily for 6 days. ciprofloxac 2020- No [id number] 750mg Take 1 Univers in HCl 750 09-07 tablet by ity of mg tablet 00:00: 04:59 mouth [place] 00 :00 every 12 Medical (twelve) Branch hours for 6 days. metroNIDAZO 2020- No [id number] 500mg Take 1 [facility] LE 500 mg 09-07 tablet by ity of tablet 00:00: 04:59 mouth 2 [place] 00 :00 (two) Medical times Branch daily for 6 days. ciprofloxac 2020- No [id number] 750mg Take 1 [facility] in HCl 750 09-07 tablet by ity of mg tablet 00:00: 04:59 mouth [place] 00 :00 every 12 Medical (twelve) Branch hours for 6 days. cosyntropin 2020- No 250ug 250 mcg, Univers (CORTROSYN) 09-06 Slow IV ity of injection 22:45: 22:06 Push, [place] 250 mcg 00 :00 ONCE, 1 Medical dose, [place] [facility] 09/06/20 at 1745, Routine metoprolol Yes 50mg 50 mg, Unive rs succinate 09-06 Oral, ity of XL (TOPROL 14:00: DAILY, [place] XL) tablet 00 First dose Med ical 50 mg (after Branch last modificati on) on 09/06/20 at 0900, Until Discontinu ed, Routine ezetimibe Yes 10mg 10 mg, Univer s (ZETIA) 09-06 Oral, ity of tablet 10 14:00: DAILY, [place] mg 00 First dose Medical on [place] [facility] 09/06/20 at 0900, Until Discontinu ed, Routine fluconazole Yes 150mg 150 mg, Un cali (DIFLUCAN) 09-06 Oral, ity of tablet 150 14:00: Q72H, [place] mg 00 First dose Medical on [place] [facility] 09/06/20 at 0900, Until Discontinu ed, TRANG
Re ason for Anti-Infec tive: Empiric Therapy for Suspected Infection< br>Empiric Therapy Site: Pelvic<br& gt;Duratio n of therapy: 72 hours NaCl 0.9% 2020- No 500mL at 999 Univ ers (NS) bolus 09-06 mL/hr, 500 it y of infusion 06:15: 05:09 mL, IV [place] 500 mL 00 :00 Piggyback, Medical ONCE, 1 Branch dose, [place] 09/06/20 at 0115, STAT magnesium Yes 400mg [...] Medi blanquita (8 %) IV 09/05/20 at [facility] h Piggyback 4 2014, g Routine KCL Yes 40meq 40 mEq, [...] Medic al s, ONCE, 1 Branch dose, [facility] 09/05/20 at 1830, Routine isosorbide 2020- No 30mg 30 mg, Univ ers mononitrate 09-05 04-10 Oral, ity of (IMDUR) 24 17:00: 17:00 ONCE, 1 [place] hr tablet 00 :00 dose, [facility] Medic al 30 mg 09/05/20 at Branch 1200, Routine cefTRIAXone 2020- No 1000mg 1,000 mg, Univers (ROCEPHIN) 09-05-17 IV ity of 1,000 mg in 16:00: 15:59 Piggyback, [place] NaCl 0.9% 00 :00 Q12H ABX, Medic al (NS) 50 mL 14 doses, Bran ch MINI-BAG First dose (after last reorder) on [facility] 09/05/20 at 1100, Last dose on Mon09/11/20 at 2300, 50 mL
Reas on for Anti-Infec tive: Documented Infection< br>Documen anthony Infection Site: Urine
D uration of Therapy: Other (see Comments) enoxaparin Yes 40mg 40 mg, Unive rs (LOVENOX) 4-10 Subcutaneo ity of injection 14:00: us, DAILY, [place] 40 mg 00 First dose Medical on [facility] 09/05/20 at 0900, Until Discontinu ed, Routine pantoprazol Yes 40mg 40 mg, Univ ers e 4-10 Oral, ity of (PROTONIX) 14:00: DAILY, [place] EC tablet 00 First dose Medi blanquita 40 mg on [facility] 09/05/20 at 0900, Until Discontinu ed, Routine clopidogreL Yes 75mg 75 mg, Univ ers (PLAVIX) 4-10 Oral, ity of tablet 75 14:00: DAILY, [place] mg 00 First dose Medical on [facility] 09/05/20 at 0900, Until Discontinu ed, Routine metoprolol No 100mg 100 mg, Un cali succinate 09-05 Oral, ity of XL (TOPROL 14:00: 11:17 [...] at 0900, Until Discontinu ed, Routine furosemide No 20mg 20 mg, Univ ers (LASIX) 09-05 Oral, ity of tablet 20 14:00: 22:14 DAILY, [place] mg 00 :49 First dose Medical on [facility] Branch 09/05/20 at 0900, Until Discontinu ed, Routine docusate Yes 100mg 100 mg, Unive rs (COLACE) 4-10 Oral, BID, ity o f capsule 100 13:00: First dose [place] mg 00 on [facility] Medical 09/05/20 at Branch 0800, Until Discontinu ed, Routine metFORMIN Yes 1000mg 1,000 mg, U nivers (GLUCOPHAGE 4-10 Oral, BID ity of ) tablet 13:00: MEALS, [place] 1,000 mg 00 First dose Medic al on [facility] Branch 09/05/20 at 0800, Until Discontinu ed, Routine glipiZIDE Yes 10mg 10 mg, Univer s (GLUCOTROL) 4-10 Oral, ity of tablet 10 12:30: BIDAC, [place] mg 00 First dose Medical on [facility] Branch 09/05/20 at 0730, Until Discontinu ed, Routine insulin NPH No 90U 90 Units, Univers and regular 09-0512 Subcutaneo i ty of human 70-30 12:30: 21:48 us, BIDAC, [place] (HUMULIN 00 :25 First dose Medic al 70-30 U-100 (after Branch INSULIN) last 100 unit/mL modificati (70-30) on) on Sat injection 09/05/20 at 90 Units 0730, Until Discontinu ed, Routine NaCl 0.9% 2020- No IV Univers (NS) 1000 09-05 04-11 Infusion, ity of mL + KCL 20 10:30: 00:35 at 100 [place] mEq 00 :40 mL/hr, Medical CONTINUOUS Branch , Starting 09/05/20 at 0530, Until 09/05/20 at 1935, Routine fluconazole 2020-0 2020- No 200mg at 100 Un cali (DIFLUCAN) 4- 04-10 mL/hr, IV ity of [place] 10:30: 11:16 [place], [place] 200 mg 00 :00 ONCE, 1 Medical dose, Sat Branch 09/05/20 at 0530, TRANG NaCl 0.9% 2020- No 500mL at 999 Univ ers (NS) bolus 4- 04-10 mL/hr, 500 it y of infusion 10:30: 10:00 mL, IV [place] 500 mL 00 :00 [place], Medical ONCE, 1 Branch dose, 09/05/20 at 0530, TARNG SITagliptin Yes 100mg 100 mg, Un cali (JANUVIA) 4-10 Oral, ity of tablet 100 09:45: DINNER, [place] mg 00 First dose Medical (after Branch last modificati on) on 09/05/20 at 0445, Until Discontinu ed, TRANG acetaminoph Yes 2{tbl} 2 tablet, Univers en-codeine 4-10 Oral, ity of (TYLENOL 09:31: TIDPRN, [place] #3) 300-30 12 Starting Medic al mg tablet 2 Sat Branch tablet 09/05/20 at 0431, Until Discontinu ed, Routine, Pain (scale 4-6) Sliding Yes Subcutaneo [facility] ers Scale 4-10 us, TID ity of Insulin - 09:30: MEALS+HS, [place] Lispro 00 First dose Medical (HumaLOG) + on Sat Branch Fsbg 09/05/20 at Testing 0430, Until Discontinu ed, Routine gabapentin Yes 800mg 800 mg, Uni vers (NEURONTIN) 4-10 Oral, TID, it y of tablet 800 09:30: First dose [place] mg 00 on [facility] Medical 09/05/20 at Branch 0430, Until Discontinu ed, Routine atorvastati Yes 80mg 80 mg, Univ ers n (LIPITOR) 4-10 Oral, QHS, it y of tablet 80 09:30: First dose [place] mg 00 on [facility] Medical 09/05/20 at Branch 0430, Until [...] 2020- No 500mg 500 mg, U vern LE (FLAGYL) 4-10 04-17 Oral, BID, i ty [...] IV ity of (D50W) 09:28: Push, PRN, [place] injection 38 Starting Medica l 25 mL Sat Branch 09/05/20 at 0428, Until Discontinu ed, TRANG, Blood Glucose < or = 70 mg/dL and patient is unable to swallow or has mental status changes. cefTRIAXone 2020- No 1000mg 1,000 mg, Univers (ROCEPHIN) 09-05 04-10 IV ity of 1,000 mg in 05:15: [facility] [place] NaCl 0.9% 00 :00 ONCE, 1 Medical (NS) 50 mL dose, Sat Bran ch MINI-BAG 09/05/20 at 0015, 50 mL
Reas on for Anti-Infec tive: Documented Infection< br>Documen anthony Infection Site: Urine
D uration of Therapy: Other (see Comments) insulin 2020- No 18U 18 Units, Univ ers regular - 04-10 Subcutaneo ity o f human 04:30: 03:27 , ONCE, [place] (HUMULIN R) 00 :00 1 dose, Medic al injection 09/04/20 Bran ch 18 Units at 2330, Routine atorvastati Yes [id number] 80mg Take 1 Univers n 80 mg 3-10 tablet by ity of tablet 00:00: mouth at [place] [address] bedtime. Medical Branch atorvastati Yes [id number] 80mg Take 1 Univers n 80 mg 3-10 tablet by ity of tablet 00:00: mouth at [place] [address] bedtime. Medical Branch atorvastati Yes [id number] 80mg Take 1 Univers n 80 mg 3-10 tablet by ity of tablet 00:00: mouth at [place] [address] bedtime. Medical Branch atorvastati 2021-0 Yes [id number] 80mg Take 1 Univers n 80 mg 3-10 tablet by ity of tablet 00:00: mouth at [place] 00 bedtime. Medical Branch atorvastati 2020-0 Yes [id number] 80mg Take 1 Univers n 80 mg 3-10 tablet by ity of tablet 00:00: mouth at [place] 00 bedtime. Medical Branch atorvastati 0 2021- No [id number] 80mg Take 1 Univers n 80 mg [...] TABLETS BY ity of tablet 00:00: MOUTH [place] 00 TWICE Medical DAILY WITH Branch MEALS METFORMIN 2020-0 Yes TAKE 2 Univer s 500 mg 3-09 TABLETS BY ity of tablet 00:00: MOUTH [place] 00 TWICE Medical DAILY WITH Branch MEALS [...] DAILY WITH Branch MEALS isosorbide 2021-0 Yes [id number] 30mg Take 1 [facility] mononitrate 1-11 tablet by ity of 30 mg 24 hr 00:00: mouth [place] tablet 00 daily. Medical Branch metoprolol 0 Yes [id number] 100mg Take 1 [facility] succinate 1-11 tablet by ity o f XL 100 mg 00:00: mouth [place] 24 hr 00 daily. Medical tablet Branch pantoprazol 0 Yes [id number] 40mg Take 1 Univers e 40 mg EC 1-11 tablet by ity of tablet 00:00: mouth [place] 00 daily. Medical Branch isosorbide 2020-0 Yes [id number] 30mg Take 1 [facility] mononitrate 1-11 tablet by ity of 30 mg 24 hr 00:00: mouth [place] tablet 00 daily. Medical Branch metoprolol Yes [id number] 100mg Take 1 [facility] succinate 1-11 tablet by [facility] o f XL 100 mg 00:00: mouth [place] 24 hr 00 daily. [facility] tablet Branch pantoprazol Yes [id number] 40mg Take 1 [facility] 40 mg EC 1-11 tablet by [facility] tablet 00:00: mouth [place] 00 daily. [facility] isosorbide 0 Yes [id number] 30mg Take 1 [facility] mononitrate 1-11 tablet by [facility] of 30 mg 24 hr 00:00: mouth [place] tablet 00 daily. [facility] metoprolol Yes [id number] 100mg Take 1 [facility] succinate 1-11 tablet by [facility] o f XL 100 mg 00:00: mouth [place] 24 hr 00 daily. Medical tablet Branch pantoprazol 0 Yes [id number] 40mg Take 1 [facility] e 40 mg EC 1-11 tablet by [facility] tablet 00:00: mouth [place] 00 daily. [facility] isosorbide 2020-0 Yes [id number] 30mg Take 1 [facility] mononitrate 1-11 tablet by [facility] of 30 mg 24 hr 00:00: mouth [place] tablet 00 daily. [facility] metoprolol 0 Yes [id number] 100mg Take 1 [facility] succinate 1-11 tablet by [facility] o f XL 100 mg 00:00: mouth [place] 24 hr 00 daily. Medical tablet Branch pantoprazol Yes [id number] 40mg Take 1 [facility] e 40 mg EC 1-11 tablet by [facility] tablet 00:00: mouth [place] 00 daily. [facility] isosorbide 2020-0 Yes [id number] 30mg Take 1 [facility] mononitrate 1-11 tablet by [facility] of 30 mg 24 hr 00:00: mouth [place] tablet 00 daily. [facility] metoprolol 2020-0 Yes [id number] 100mg Take 1 [facility] succinate 1-11 tablet by [facility] o f XL 100 mg 00:00: mouth [place] 24 hr 00 daily. Medical tablet Branch pantoprazol 2020-0 Yes [id number] 40mg Take 1 [facility] e 40 mg EC 1-11 tablet by [facility] of tablet 00:00: mouth [place] 00 daily. [facility] isosorbide 2020-0 Yes [id number] 30mg Take 1 [facility] mononitrate 1-11 tablet by [facility] of 30 mg 24 hr 00:00: mouth [place] tablet 00 daily. [facility] metoprolol 2020-0 Yes [id number] 100mg Take 1 [facility] succinate 1-11 tablet by [facility] o f XL 100 mg 00:00: mouth [place] 24 hr 00 daily. Medical tablet Branch pantoprazol 2020-0 Yes [id number] 40mg Take 1 [facility] e 40 mg EC 1-11 tablet by [facility] tablet 00:00: mouth [place] 00 daily. [facility] isosorbide 2020-0 Yes [id number] 30mg Take 1 [facility] mononitrate 1-11 tablet by [facility] of 30 mg 24 hr 00:00: mouth [place] tablet 00 daily. [facility] metoprolol 2020-0 Yes [id number] 100mg Take 1 [facility] succinate 1-11 tablet by [facility] o f XL 100 mg 00:00: mouth [place] 24 hr 00 daily. Medical tablet [facility] pantoprazol 2020-0 Yes [id number] 40mg Take 1 [facility] e 40 mg EC 1-11 tablet by [facility] of tablet 00:00: mouth [place] 00 daily. [facility] isosorbide 2020-0 Yes [id number] 30mg Take 1 [facility] mononitrate 1-11 tablet by [facility] of 30 mg 24 hr 00:00: mouth [place] tablet 00 daily. [facility] metoprolol 2020-0 Yes [id number] 100mg Take 1 [facility] succinate 1-11 tablet by [facility] o f XL 100 mg 00:00: mouth [place] 24 hr 00 daily. Medical tablet Branch pantoprazol 2020-0 Yes [id number] 40mg Take 1 [facility] 40 mg EC 1-11 tablet by [facility] tablet 00:00: mouth [place] 00 daily. [facility] isosorbide 2020-0 Yes [id number] 30mg Take 1 [facility] mononitrate 1-11 tablet by [facility] of 30 mg 24 hr 00:00: mouth [place] tablet 00 daily. [facility] metoprolol 0 Yes [id number] 100mg Take 1 [facility] succinate 1-11 tablet by [facility] o f XL 100 mg 00:00: mouth [place] 24 hr 00 daily. Medical tablet Branch pantoprazol 0 Yes [id number] 40mg Take 1 [facility] 40 mg EC 1-11 tablet by [facility] of tablet 00:00: mouth [place] 00 daily. [facility] isosorbide 0 Yes [id number] 30mg Take 1 [facility] mononitrate 1-11 tablet by [facility] of 30 mg 24 hr 00:00: mouth [place] tablet 00 daily. [facility] metoprolol Yes [id number] 100mg Take 1 [facility] succinate 1-11 tablet by [facility] o f XL 100 mg 00:00: mouth [place] 24 hr 00 daily. Medical tablet Branch pantoprazol Yes [id number] 40mg Take 1 [facility] e 40 mg EC 1-11 tablet by [facility] of tablet 00:00: mouth [place] 00 daily. [facility] isosorbide Yes [id number] 30mg Take 1 [facility] mononitrate 1-11 tablet by [facility] of 30 mg 24 hr 00:00: mouth [place] tablet 00 daily. [facility] metoprolol Yes [id number] 100mg Take 1 [facility] succinate 1-11 tablet by [facility] o f XL 100 mg 00:00: mouth [place] 24 hr 00 daily. Medical tablet Branch pantoprazol 0 Yes [id number] 40mg Take 1 [facility] 40 mg EC 1-11 tablet by [facility] of tablet 00:00: mouth [place] 00 daily. [facility] pantoprazol 0 Yes [id number] 40mg Take 1 [facility] 40 mg EC 1-11 tablet by [facility] tablet 00:00: mouth [place] 00 daily. [facility] pantoprazol 2020-0 Yes [id number] 40mg Take 1 [facility] 40 mg EC 1-11 tablet by [facility] tablet 00:00: mouth [place] 00 daily. [facility] pantoprazol 0 Yes [id number] 40mg Take 1 [facility] 40 mg EC 1-11 tablet by [facility] of tablet 00:00: mouth [place] 00 daily. [facility] pantoprazol Yes [id number] 40mg Take 1 [facility] 40 mg EC 1-11 tablet by [facility] of tablet 00:00: mouth [place] 00 daily. [facility] pantoprazol Yes [id number] 40mg Take 1 [facility] 40 mg EC 1-11 tablet by [facility] tablet 00:00: mouth [place] 00 daily. [facility] pantoprazol 0 Yes [id number] 40mg Take 1 [facility] 40 mg EC 1-11 tablet by [facility] tablet 00:00: mouth [place] 00 daily. [facility] pantoprazol Yes [id number] 40mg Take 1 [facility] 40 mg EC 1-11 tablet by [facility] of tablet 00:00: mouth [place] 00 daily. [facility] pantoprazol Yes [id number] 40mg Take 1 [facility] 40 mg EC 1-11 tablet by [facility] tablet 00:00: mouth [place] 00 daily. [facility] pantoprazol Yes [id number] 40mg Take 1 [facility] 40 mg EC 1-11 tablet by [facility] of tablet 00:00: mouth [place] 00 daily. [facility] pantoprazol Yes [id number] 40mg Take 1 [facility] 40 mg EC 1-11 tablet by [facility] tablet 00:00: mouth [place] 00 daily. [facility] pantoprazol Yes [id number] 40mg Take 1 [facility] 40 mg EC 1-11 tablet by [facility] tablet 00:00: mouth [place] 00 daily. [facility] pantoprazol Yes [id number] 40mg Take 1 [facility] 40 mg EC 1-11 tablet by [facility] tablet 00:00: mouth [place] 00 daily. [facility] pantoprazol Yes [id number] 40mg Take 1 [facility] 40 mg EC 1-11 tablet by [facility] tablet 00:00: mouth [place] 00 daily. [facility] pantoprazol Yes [id number] 40mg Take 1 [facility] 40 mg EC 1-11 tablet by [facility] of tablet 00:00: mouth [place] 00 daily. [facility] pantoprazol Yes [id number] 40mg Take 1 [facility] 40 mg EC 1-11 tablet by [facility] of tablet 00:00: mouth [place] 00 daily. [facility] pantoprazol Yes [id number] 40mg Take 1 [facility] 40 mg EC 1-11 tablet by [facility] of tablet 00:00: mouth [place] 00 daily. [facility] pantoprazol Yes [id number] 40mg Take 1 [facility] 40 mg EC 1-11 tablet by [facility] of tablet 00:00: mouth [place] 00 daily. [facility] pantoprazol Yes [id number] 40mg Take 1 [facility] 40 mg EC 1-11 tablet by [facility] tablet 00:00: mouth [place] 00 daily. [facility] pantoprazol Yes [id number] 40mg Take 1 [facility] 40 mg EC 1-11 tablet by [facility] of tablet 00:00: mouth [place] 00 daily. [facility] pantoprazol Yes [id number] 40mg Take 1 [facility] e 40 mg EC 1-11 tablet by [facility] tablet 00:00: mouth [place] 00 daily. [facility] pantoprazol Yes [id number] 40mg Take 1 [facility] e 40 mg EC 1-11 tablet by [facility] of tablet 00:00: mouth [place] 00 daily. [facility] pantoprazol Yes [id number] 40mg Take 1 [facility] 40 mg EC 1-11 tablet by [facility] tablet 00:00: mouth [place] 00 daily. [facility] pantoprazol Yes [id number] 40mg Take 1 [facility] e 40 mg EC 1-11 tablet by [facility] of tablet 00:00: mouth [place] 00 daily. [facility] pantoprazol Yes [id number] 40mg Take 1 [facility] e 40 mg EC 1-11 tablet by [facility] of tablet 00:00: mouth [place] 00 daily. [facility] pantoprazol Yes [id number] 40mg Take 1 [facility] e 40 mg EC 1-11 tablet by [facility] of tablet 00:00: mouth [place] 00 daily. [facility] pantoprazol Yes [id number] 40mg Take 1 [facility] e 40 mg EC 1-11 tablet by [facility] of tablet 00:00: mouth [place] 00 daily. [facility] pantoprazol Yes [id number] 40mg Take 1 [facility] e 40 mg EC 1-11 tablet by [facility] of tablet 00:00: mouth [place] 00 daily. [facility] pantoprazol Yes [id number] 40mg Take 1 [facility] e 40 mg EC 1-11 tablet by [facility] of tablet 00:00: mouth [place] 00 daily. [facility] pantoprazol Yes [id number] 40mg Take 1 [facility] e 40 mg EC 1-11 tablet by [facility] of tablet 00:00: mouth [place] 00 daily. [facility] pantoprazol Yes [id number] 40mg Take 1 [facility] e 40 mg [...] disease daily. [facility] isosorbide 2020- No [id number] 30mg Take 1 [facility] mononitrate 06-08-12 tablet by it y of 30 mg 24 hr 00:00: 00:00 mouth [place] tablet 00 :00 daily. [facility] metoprolol 2020- No [id number] 100mg Take 1 [facility] succinate 06-08-12 tablet by [facility] of XL 100 mg 00:00: 00:00 mouth [place] 24 hr 00 :00 daily. Medical tablet Branch methocarbam Yes [id number] 500mg Take 1 [facility] oL 500 mg 1-08 tablet by [facility] o f tablet 00:00: mouth 4 00 (four) Medical times Branch daily as needed (muscle spasm). isosorbide Yes [id number] 30mg Take 1 [facility] mononitrate 1-08 tablet by [facility] of 30 mg 24 hr 00:00: mouth [place] tablet 00 daily. [facility] Branch potassium Yes [id number] 10meq Take 1 [facility] n[facility] chloride 10 1-08 tablet by [facility] of mEq CR 00:00: mouth [place] tablet 00 daily. [facility] Branch methocarbam Yes [id number] 500mg Take 1 [facility] oL 500 mg 1-08 tablet by [facility] o f tablet 00:00: mouth 4 [place] 00 (four) Medical times Branch daily as needed (muscle spasm). potassium Yes [id number] 10meq Take 1 [facility] chloride 10 1-08 tablet by it[facility] of mEq CR 00:00: mouth [place] tablet 00 daily. [facility] methocarbam 0 Yes [id number] 500mg Take 1 [facility] oL 500 mg 1-08 tablet by it[facility] o f tablet 00:00: mouth 4 [place] 00 (four) Medical times Branch daily as needed (muscle spasm). potassium 0 Yes [id number] 10meq Take 1 [facility] nivers chloride 10 1-08 tablet by ity of mEq CR 00:00: mouth [place] tablet 00 daily. [facility] Branch methocarbam Yes [id number] 500mg Take 1 [facility] oL 500 mg 1-08 tablet by ity o f tablet 00:00: mouth 4 [place] 00 (four) Medical times Branch daily as needed (muscle spasm). potassium Yes [id number] 10meq Take 1 [facility] nivers chloride 10 1-08 tablet by ity of mEq CR 00:00: mouth [place] tablet 00 daily. [facility] methocarbam Yes [id number] 500mg Take 1 [facility] oL 500 mg 1-08 tablet by ity o f tablet 00:00: mouth 4 [place] 00 (four) Medical times Branch daily as needed (muscle spasm). potassium 0 Yes [id number] 10meq Take 1 [facility] nivers chloride 10 1-08 tablet by ity of mEq CR 00:00: mouth [place] tablet 00 daily. [facility] methocarbam Yes [id number] 500mg Take 1 [facility] oL 500 mg 1-08 tablet by ity o f tablet 00:00: mouth 4 [place] 00 (four) Medical times Branch daily as needed (muscle spasm). potassium 0 Yes [id number] 10meq Take 1 [facility] nivers chloride 10 1-08 tablet by ity of mEq CR 00:00: mouth [place] tablet 00 daily. [facility] Branch methocarbam 0 Yes [id number] 500mg Take 1 [facility] oL 500 mg 1-08 tablet by ity o f tablet 00:00: mouth 4 [place] 00 (four) Medical times Branch daily as needed (muscle spasm). potassium 0 Yes [id number] 10meq Take 1 [facility] nivers chloride 10 1-08 tablet by ity of mEq CR 00:00: mouth [place] tablet 00 daily. [facility] methocarbam Yes [id number] 500mg Take 1 [facility] oL 500 mg 1-08 tablet by ity o f tablet 00:00: mouth 4 [place] 00 (four) Medical times Branch daily as needed (muscle spasm). potassium Yes [id number] 10meq Take 1 [facility] nivers chloride 10 1-08 tablet by ity of mEq CR 00:00: mouth [place] tablet 00 daily. Medical Branch methocarbam Yes [id number] 500mg Take 1 [facility] oL 500 mg 1-08 tablet by ity o f tablet 00:00: mouth 4 [place] 00 (four) Medical times Branch daily as needed (muscle spasm). potassium Yes [id number] 10meq Take 1 [facility] nivers chloride 10 1-08 tablet by ity of mEq CR 00:00: mouth [place] tablet 00 daily. [facility] Branch potassium Yes [id number] 10meq Take 1 [facility] nivers chloride 10 1-08 tablet by ity of mEq CR 00:00: mouth [place] tablet 00 daily. [facility] Branch potassium Yes [id number] 10meq Take 1 [facility] nivers chloride 10 1-08 tablet by ity of mEq CR 00:00: mouth [place] tablet 00 daily. [facility] Branch potassium Yes [id number] 10meq Take 1 [facility] nivers chloride 10 1-08 tablet by ity of mEq CR 00:00: mouth [place] tablet 00 daily. [facility] potassium 2020- No [id number] 10meq Take 1 [facility] chloride 10 1-08 04-12 tablet by it y of mEq CR 00:00: 00:00 mouth [place] tablet 00 :00 daily. [facility] Branch methocarbam 2020- No [id number] 500mg Take 1 [facility] oL 500 mg -08 04-09 tablet by ity of tablet 00:00: 00:00 mouth 4 [place] 00 :00 (four) Medical times Branch daily as needed (muscle spasm). methocarbam 2020- No [id number] 500mg Take 1 [facility] oL 500 mg 1-08 04-09 tablet by ity of tablet 00:00: 00:00 mouth 4 [place] 00 :00 (four) Medical times Branch daily as needed (muscle spasm). isosorbide 2020- No [id number] 30mg Take 1 [facility] mononitrate 1-08 06-08 tablet by it y of 30 mg 24 hr 00:00: 00:00 mouth [place] tablet 00 :00 daily. Medical Branch gabapentin 2020-1 Yes [id number] 800mg Take 1 [facility] 800 mg 2-22 tablet by ity of tablet 00:00: mouth 3 (three) Medical times Branch daily. gabapentin 2020-1 Yes [id number] 800mg Take 1 [facility] 800 mg 2-22 tablet by ity of tablet 00:00: mouth (three) Medical times Branch daily. gabapentin 2020-1 Yes [id number] 800mg Take 1 [facility] 800 mg 2-22 tablet by ity of tablet 00:00: mouth (three) Medical times Branch daily. gabapentin 2020-1 Yes [id number] 800mg Take 1 [facility] 800 mg 2-22 tablet by ity of tablet 00:00: mouth (three) Medical times Branch daily. gabapentin 2020-1 Yes [id number] 800mg Take 1 [facility] 800 mg 2-22 tablet by ity of tablet 00:00: mouth (three) Medical times Branch daily. gabapentin 2020-1 Yes [id number] 800mg Take 1 [facility] 800 mg 2-22 tablet by ity of tablet 00:00: mouth (three) Medical times Branch daily. gabapentin 2020-1 Yes [id number] 800mg Take 1 [facility] 800 mg 2-22 tablet by ity of tablet 00:00: mouth (three) Medical times Branch daily. gabapentin 2020-1 Yes [id number] 800mg Take 1 [facility] 800 mg 2-22 tablet by ity of tablet 00:00: mouth (three) Medical times Branch daily. gabapentin 2020-1 Yes [id number] 800mg Take 1 [facility] 800 mg 2-22 tablet by ity of tablet 00:00: mouth 3 (three) Medical times Branch daily. gabapentin 2020-1 Yes [id number] 800mg Take 1 [facility] 800 mg 2-22 tablet by ity of tablet 00:00: mouth 3 (three) Medical times Branch daily. gabapentin 2020-1 Yes [id number] 800mg Take 1 [facility] 800 mg 2-22 tablet by ity of tablet 00:00: mouth 3 (three) Medical times Branch daily. gabapentin 2020-1 Yes [id number] 800mg Take 1 [facility] 800 mg 2-22 tablet by ity of tablet 00:00: mouth 3 (three) Medical times Branch daily. gabapentin 2020-1 Yes [id number] 800mg Take 1 [facility] 800 mg 2-22 tablet by ity of tablet 00:00: mouth 3 (three) Medical times Branch daily. gabapentin 2020-1 Yes [id number] 800mg Take 1 [facility] 800 mg 2-22 tablet by ity of tablet 00:00: mouth 3 (three) Medical times Branch daily. gabapentin 2020-1 Yes [id number] 800mg Take 1 [facility] 800 mg 2-22 tablet by ity of tablet 00:00: mouth (three) Medical times Branch daily. gabapentin 2020-1 Yes [id number] 800mg Take 1 [facility] 800 mg 2-22 tablet by ity of tablet 00:00: mouth (three) Medical times Branch daily. gabapentin 2020-1 Yes [id number] 800mg Take 1 [facility] 800 mg 2-22 tablet by ity of tablet 00:00: mouth (three) Medical times Branch daily. gabapentin 2020-1 Yes [id number] 800mg Take 1 [facility] 800 mg 2-22 tablet by ity of tablet 00:00: mouth (three) Medical times Branch daily. gabapentin 2020-1 Yes [id number] 800mg Take 1 [facility] 800 mg 2-22 tablet by ity of tablet 00:00: mouth (three) Medical times Branch daily. gabapentin 2020-1 Yes [id number] 800mg Take 1 [facility] 800 mg 2-22 tablet by ity of tablet 00:00: mouth (three) Medical times Branch daily. gabapentin 2020-1 Yes [id number] 800mg Take 1 [facility] 800 mg 2-22 tablet by ity of tablet 00:00: mouth 3 (three) Medical times Branch daily. gabapentin 2020-1 Yes [id number] 800mg Take 1 [facility] 800 mg 2-22 tablet by ity of tablet 00:00: mouth 3 (three) Medical times Branch daily. gabapentin 2020-1 Yes [id number] 800mg Take 1 [facility] 800 mg 2-22 tablet by ity of tablet 00:00: mouth 3 (three) Medical times Branch daily. gabapentin 2020-1 Yes [id number] 800mg Take 1 [facility] 800 mg 2-22 tablet by ity of tablet 00:00: mouth 3 (three) Medical times Branch daily. gabapentin 2020-1 Yes [id number] 800mg Take 1 [facility] 800 mg 2-22 tablet by ity of tablet 00:00: mouth 3 (three) Medical times Branch daily. gabapentin 2020-1 Yes [id number] 800mg Take 1 [facility] 800 mg 2-22 tablet by ity of tablet 00:00: mouth 3 (three) Medical times Branch daily. gabapentin 2020-1 Yes [id number] 800mg Take 1 [facility] 800 mg 2-22 tablet by ity of tablet 00:00: mouth 3 (three) Medical times Branch daily. gabapentin 2020-1 Yes [id number] 800mg Take 1 [facility] 800 mg 2-22 tablet by ity of tablet 00:00: mouth 3 (three) Medical times Branch daily. gabapentin 2019- Yes [id number] 800mg Take 1 [facility] 800 mg 2-22 tablet by ity of tablet 00:00: mouth 3 (three) Medical times Branch daily. gabapentin 2020-1 Yes [id number] 800mg Take 1 [facility] 800 mg 2-22 tablet by ity of tablet 00:00: mouth 3 (three) Medical times Branch daily. gabapentin 2020-1 Yes [id number] 800mg Take 1 [facility] 800 mg 2-22 tablet by ity of tablet 00:00: mouth 3 (three) Medical times Branch daily. gabapentin 2019- Yes Neuropathy 800mg Take 1 [facility] 800 mg 2-22 tablet by ity of tablet 00:00: mouth 3 (three) Medical times Branch daily. gabapentin 2019-1 Yes Neuropathy 800mg Take 1 [facility] 800 mg 2-22 tablet by ity of tablet 00:00: mouth 3 (three) Medical times Branch daily. gabapentin 2019-2020- No [id number] 800mg Take 1 [facility] 800 mg 2-22 07-23 tablet by ity of tablet 00:00: 00:00 mouth 3 [place] 00 :00 (three) Medical times Branch daily. methocarbam 2019- Yes [id number] 500mg Take 1 [facility] oL 500 mg 2-11 tablet by ity o f tablet 00:00: mouth 4 00 (four) Medical times Branch daily as needed (muscle spasm). methocarbam 2019-05 Yes [id number] 500mg Take 1 [facility] oL 500 mg 2-11 tablet by ity o f tablet 00:00: mouth (four) Medical times Branch daily as needed (muscle spasm). methocarbam 2019-05 Yes [id number] 500mg Take 1 [facility] oL 500 mg 2-11 tablet by ity o f tablet 00:00: mouth 4 (four) Medical times Branch daily as needed (muscle spasm). methocarbam 2019-05 Yes [id number] 500mg Take 1 [facility] oL 500 mg 2-11 tablet by ity o f tablet 00:00: mouth (four) Medical times Branch daily as needed (muscle spasm). methocarbam 2019-05 Yes [id number] 500mg Take 1 [facility] oL 500 mg 2-11 tablet by ity o f tablet 00:00: mouth (four) Medical times Branch daily as needed (muscle spasm). methocarbam 2019-05 Yes [id number] 500mg Take 1 [facility] oL 500 mg 2-11 tablet by ity o f tablet 00:00: mouth (four) Medical times Branch daily as needed (muscle spasm). methocarbam 2019-05 Yes [id number] 500mg Take 1 [facility] oL 500 mg 2-11 tablet by ity o f tablet 00:00: mouth (four) Medical times Branch daily as needed (muscle spasm). methocarbam 2019-05- No [id number] 500mg Take 1 [facility] oL 500 mg 2-11 -08 tablet by ity of tablet 00:00: 00:00 mouth 4 00 :00 (four) Medical times Branch daily as needed (muscle spasm). PANTOPRAZOL 2019-05 Yes [id number] TAKE 1 [facility] E 40 mg EC 1-18 TABLET BY ity of tablet 00:00: MOUTH ONCE 00 DAILY DO Medical NOT CRUSH Branch OR CHEW FUROSEMIDE 2019-05 Yes [id number] Take 1 [facility] nivers 20 mg 1-18 tablet by ity of tablet 00:00: mouth once [place] 00 daily Medical Branch POTASSIUM 2019-05 Yes [id number] Take 1 [facility] CHLORIDE 10 1-18 tablet by ity of mEq CR 00:00: mouth once [place] tablet 00 daily Medical Branch PANTOPRAZOL 2019-05 Yes [id number] TAKE 1 [facility] E 40 mg EC 1-18 TABLET BY ity of tablet 00:00: MOUTH ONCE [place] 00 DAILY DO Medical NOT CRUSH Branch OR CHEW FUROSEMIDE 2020- Yes [id number] Take 1 [facility] nivers 20 mg 1-18 tablet by ity of tablet 00:00: mouth once [place] 00 daily Medical Branch POTASSIUM 2020-1 Yes [id number] Take 1 [facility] CHLORIDE 10 1-18 tablet by ity of mEq CR 00:00: mouth once [place] tablet 00 daily Medical Branch PANTOPRAZOL 2020- Yes [id number] TAKE 1 [facility] E 40 mg EC 1-18 TABLET BY ity of tablet 00:00: MOUTH ONCE [place] 00 DAILY DO Medical NOT CRUSH Branch OR CHEW FUROSEMIDE 2020- Yes [id number] Take 1 [facility] nivers 20 mg 1-18 tablet by ity of tablet 00:00: mouth once [place] 00 daily Medical Branch POTASSIUM 2020- Yes [id number] Take 1 [facility] CHLORIDE 10 1-18 tablet by ity of mEq CR 00:00: mouth once [place] tablet 00 daily Medical Branch PANTOPRAZOL 2020- Yes [id number] TAKE 1 [facility] E 40 mg EC 1-18 TABLET BY ity of tablet 00:00: MOUTH ONCE [place] 00 DAILY DO Medical NOT CRUSH Branch OR CHEW FUROSEMIDE 2020- Yes [id number] Take 1 [facility] nivers 20 mg 1-18 tablet by ity of tablet 00:00: mouth once [place] 00 daily Medical Branch POTASSIUM 2020- Yes [id number] Take 1 [facility] CHLORIDE 10 1-18 tablet by ity of mEq CR 00:00: mouth once [place] tablet 00 daily Medical Branch PANTOPRAZOL 2020- Yes [id number] TAKE 1 [facility] E 40 mg EC 1-18 TABLET BY ity of tablet 00:00: MOUTH ONCE [place] 00 DAILY DO Medical NOT CRUSH Branch OR CHEW FUROSEMIDE 2020- Yes [id number] Take 1 [facility] nivers 20 mg 1-18 tablet by ity of tablet 00:00: mouth once [place] 00 daily Medical Branch POTASSIUM 2020- Yes [id number] Take 1 [facility] CHLORIDE 10 1-18 tablet by ity of mEq CR 00:00: mouth once [place] tablet 00 daily Medical Branch PANTOPRAZOL 2020- Yes [id number] TAKE 1 [facility] E 40 mg EC 1-18 TABLET BY ity of tablet 00:00: MOUTH ONCE [place] 00 DAILY DO Medical NOT CRUSH Branch OR CHEW FUROSEMIDE 2020- Yes [id number] Take 1 [facility] nivers 20 mg 1-18 tablet by ity of tablet 00:00: mouth once [place] 00 daily Medical Branch POTASSIUM 2020-1 Yes [id number] Take 1 [facility] CHLORIDE 10 1-18 tablet by ity of mEq CR 00:00: mouth once [place] tablet 00 daily Medical Branch PANTOPRAZOL 2020- Yes [id number] TAKE 1 [facility] E 40 mg EC 1-18 TABLET BY ity of tablet 00:00: MOUTH ONCE [place] 00 DAILY DO Medical NOT CRUSH Branch OR CHEW FUROSEMIDE 2020- Yes [id number] Take 1 [facility] nivers 20 mg 1-18 tablet by ity of tablet 00:00: mouth once [place] 00 daily Medical Branch POTASSIUM 2020-1 Yes [id number] Take 1 [facility] CHLORIDE 10 1-18 tablet by ity of mEq CR 00:00: mouth once [place] tablet 00 daily Medical Branch PANTOPRAZOL 2020- Yes [id number] TAKE 1 [facility] E 40 mg EC 1-18 TABLET BY ity of tablet 00:00: MOUTH ONCE [place] 00 DAILY DO Medical NOT CRUSH Branch OR CHEW FUROSEMIDE 2020- Yes [id number] Take 1 [facility] nivers 20 mg 1-18 tablet by ity of tablet 00:00: mouth once [place] 00 daily Medical Branch POTASSIUM 2020- Yes [id number] Take 1 [facility] CHLORIDE 10 1-18 tablet by ity of mEq CR 00:00: mouth once [place] tablet 00 daily Medical Branch PANTOPRAZOL 2020- Yes [id number] TAKE 1 [facility] E 40 mg EC 1-18 TABLET BY ity of tablet 00:00: MOUTH ONCE [place] 00 DAILY DO Medical NOT CRUSH Branch OR CHEW FUROSEMIDE 2020- Yes [id number] Take 1 [facility] nivers 20 mg 1-18 tablet by ity of tablet 00:00: mouth once [place] 00 daily Medical Branch FUROSEMIDE 2020-1 Yes [id number] Take 1 [facility] nivers 20 mg 1-18 tablet by ity of tablet 00:00: mouth once [place] 00 daily Medical Branch FUROSEMIDE 2020- Yes [id number] Take 1 [facility] nivers 20 mg 1-18 tablet by ity of tablet 00:00: mouth once [place] 00 daily Medical Branch FUROSEMIDE 2020- Yes [id number] Take 1 [facility] nivers 20 mg 1-18 tablet by ity of tablet 00:00: mouth once [place] 00 daily Medical Branch FUROSEMIDE 2020- Yes [id number] Take 1 [facility] nivers 20 mg 1-18 tablet by ity of tablet 00:00: mouth once [place] daily Medical Branch FUROSEMIDE 2019-05 Yes [id number] Take 1 [facility] nivers 20 mg 1-18 tablet by ity of tablet 00:00: mouth once [place] daily Medical Branch FUROSEMIDE 2019-05 Yes [id number] Take 1 [facility] nivers 20 mg 1-18 tablet by ity of tablet 00:00: mouth once [place] daily Medical Branch FUROSEMIDE 2019-05 Yes [id number] Take 1 [facility] nivers 20 mg 1-18 tablet by ity of tablet 00:00: mouth once [place] daily Medical Branch FUROSEMIDE 2019-05 Yes [id number] Take 1 [facility] nivers 20 mg 1-18 tablet by ity of tablet 00:00: mouth once [place] daily Medical Branch FUROSEMIDE 2019-05 Yes [id number] Take 1 [facility] nivers 20 mg 1-18 tablet by ity of tablet 00:00: mouth once [place] daily Medical Branch FUROSEMIDE 2019-05 Yes [id number] Take 1 [facility] nivers 20 mg 1-18 tablet by ity of tablet 00:00: mouth once [place] daily Medical Branch FUROSEMIDE 2019-05 Yes [id number] Take 1 [facility] nivers 20 mg 1-18 tablet by ity of tablet 00:00: mouth once [place] daily Medical Branch FUROSEMIDE 2019-05- No [id number] Take 1 [facility] 20 mg 1-18 04-12 tablet by [facility] of tablet 00:00: 00:00 mouth [place] 00 :00 daily Medical Branch PANTOPRAZOL 2019-05- No [id number] TAKE 1 [facility] 40 mg EC -18 - TABLET BY [facility] tablet 00:00: 00:[place]CE [place] 00 :[place] DAILY DO Medical NOT CRUSH Branch OR CHEW POTASSIUM 2019-05- No [id number] Take 1 [facility] CHLORIDE 10 -18 -08 tablet by it y of mEq CR 00:00: 00:00 mouth [place] tablet 00 :00 daily Medical Branch gabapentin 2019-05 Yes [id number] 800mg Take 1 [facility] 800 mg 1-16 tablet by [facility] tablet 00:00: mouth 3 [place] (three) Medical times Branch daily. gabapentin 2019-05 Yes [id number] 800mg Take 1 [facility] 800 mg 1-16 tablet by [facility] tablet 00:00: mouth 3 [place] (three) Medical times Branch daily. gabapentin 2019-05 Yes [id number] 800mg Take 1 [facility] 800 mg 1-16 tablet by [facility] of tablet 00:00: mouth 3 00 (three) Medical times Branch daily. gabapentin 2020-1 Yes [id number] 800mg Take 1 [facility] 800 mg 1-16 tablet by [facility] of tablet 00:00: mouth 3 [place] 00 (three) Medical times Branch daily. gabapentin 2020-1 Yes [id number] 800mg Take 1 [facility] 800 mg 1-16 tablet by [facility] of tablet 00:00: mouth 3 00 (three) Medical times Branch daily. gabapentin 2020-1 Yes [id number] 800mg Take 1 [facility] 800 mg 1-16 tablet by [facility] of tablet 00:00: mouth 3 00 (three) Medical times Branch daily. gabapentin 2020-1 Yes [id number] 800mg Take 1 [facility] 800 mg 1-16 tablet by [facility] of tablet 00:00: mouth 3 00 (three) Medical times Branch daily. gabapentin 2020- Yes [id number] 800mg Take 1 [facility] 800 mg 1-16 tablet by [facility] of tablet 00:00: mouth 3 00 (three) Medical times Branch daily. gabapentin 2019-05 2020- No [id number] 800mg Take 1 [facility] 800 mg 1-16 12-22 tablet by [facility] tablet 00:00: 00:00 mouth 3 [place] 00 :00 (three) Medical times Branch daily. Nitrofurant 2019- Yes [id number] 100mg Take 1 [facility] oin&Nit. 1-10 capsule by [facility] o [facility] [place] 00:00: mouth 2 [place] ([place]CROBID[place] (two) Medical 100 mg times Branch capsule daily. Nitrofurant 2019- Yes [id number] 100mg Take 1 [facility] oin&Nit. 1-10 capsule by [facility] o [facility] [place] 00:00: mouth 2 [place] ([place]CROB[place] 00 (two) Medical 100 mg times Branch capsule daily. Nitrofurant 2019- Yes [id number] 100mg Take 1 [facility] oin&Nit. 1-10 capsule by [facility] o [facility] [place] 00:00: mouth 2 [place] ([place]CROBID[place] 00 (two) Medical 100 mg times Branch capsule daily. Nitrofurant 2019- Yes [id number] 100mg Take 1 [facility] oin&Nit. 1-10 capsule by [facility] o [facility] [place] 00:00: mouth 2 [place] ([place]CROBID[place] 00 (two) Medical 100 mg times Branch capsule daily. Nitrofurant 2019-05 Yes [id number] 100mg Take 1 [facility] oin&Nit. 1-10 capsule by [facility] o [facility] [place] 00:00: mouth 2 [place] ([place]CROB[place] 00 (two) Medical 100 mg times Branch capsule daily. Nitrofurant 2019-05 Yes [id number] 100mg Take 1 [facility] oin&Nit. 1-10 capsule by [facility] o [facility] [place] 00:00: mouth 2 [place] ([place]CR[place] 00 (two) Medical 100 mg times Branch capsule daily. Nitrofurant 2019-05 Yes [id number] 100mg Take 1 [facility] oin&Nit. 1-10 capsule by [facility] o [facility] [place] 00:00: mouth 2 [place] ([place]CROBID[place] 00 (two) Medical 100 mg times Branch capsule daily. Nitrofurant 2019-05 Yes [id number] 100mg Take 1 [facility] oin&Nit. 1-10 capsule by [facility] o [facility] [place] 00:00: mouth 2 [place] (MACROBID[place] 00 (two) Medical 100 mg times Branch capsule daily. Nitrofurant 2019-05 2020- No [id number] 100mg Take 1 [facility] oin&Nit. 1-10 12-19 capsule by [facility] of [place]ryst 00:00: 00:00 mouth 2 [place] (MACROBID) 00 :00 (two) Medical 100 mg times Branch capsule daily. Nitrofurant 2019-05 2020- No [id number] 100mg Take 1 [facility] oin&Nit. 1-10 12-19 capsule by [facility] of [place] 00:00: 00:00 mouth 2 [place] (MACROBID) 00 :00 (two) Medical 100 mg times Branch capsule daily. sulfamethox 2019-05 2020- No 1{tbl} Take 1 [facility] azole-trime 1-10 -18 tablet by it y of thoprim 00:00: 05:59 mouth 2 [place] (BACTRIM 00 :00 (two) Medical DS) 800-160 times Branch mg per daily for tablet 7 days. sulfamethox 2019-05 2020- No 1{tbl} Take 1 [facility] azole-trime 1-10 -18 tablet by it y of thoprim 00:00: [...] for tablet 7 days. metroNIDAZO 2019-05 Yes [id number] 500mg Take 1 [facility] LE 500 mg 1-06 tablet by ity o f tablet 00:00: mouth [place] 00 every 12 Medical (twelve) Branch hours. clotrimazol 2019-05 Yes [id number] Apply to [facility] e-betametha 1-06 area(s) 2 ity of sone cream 00:00: (two) [place] 00 times Medical daily. Use Branch for 2 weeks on affected area metroNIDAZO 2019-05 Yes [id number] 500mg Take 1 [facility] LE 500 mg 1-06 tablet by ity o f tablet 00:00: mouth [place] 00 every 12 Medical (twelve) Branch hours. clotrimazol 2019-05 Yes [id number] Apply to [facility] e-betametha 1-06 area(s) 2 ity of sone cream 00:00: (two) [place] 00 times Medical daily. Use Branch for 2 weeks on affected area metroNIDAZO 2019-05 Yes [id number] 500mg Take 1 [facility] LE 500 mg 1-06 tablet by ity o f tablet 00:00: mouth [place] 00 every 12 Medical (twelve) Branch hours. clotrimazol 2019-05 Yes [id number] Apply to [facility] e-betametha 1-06 area(s) 2 [facility]y of sone cream 00:00: (two) [place] 00 times Medical daily. Use Branch for 2 weeks on affected area metroNIDAZO 2019-05 Yes [id number] 500mg Take 1 [facility] LE 500 mg 1-06 tablet by ity o f tablet 00:00: mouth [place] 00 every 12 Medical (twelve) Branch hours. clotrimazol 2019- Yes [id number] Apply to [facility] e-betametha 1-06 area(s) 2 [facility] of sone cream 00:00: (two) [place] 00 times Medical daily. Use Branch for 2 weeks on affected area metroNIDAZO 2020- Yes [id number] 500mg Take 1 [facility] LE 500 mg 1-06 tablet by ity o f tablet 00:00: mouth [place] 00 every 12 Medical (twelve) Branch hours. clotrimazol 2020- Yes [id number] Apply to [facility] e-betametha 1-06 area(s) 2 ity of sone cream 00:00: (two) [place] 00 times Medical daily. Use Branch for 2 weeks on affected area metroNIDAZO 2020- Yes [id number] 500mg Take 1 [facility] LE 500 mg 1-06 tablet by ity o f tablet 00:00: mouth [place] 00 every 12 Medical (twelve) Branch hours. clotrimazol 2020- Yes [id number] Apply to [facility] e-betametha 1-06 area(s) 2 [facility] of sone cream 00:00: (two) [place] 00 times Medical daily. Use Branch for 2 weeks on affected area metroNIDAZO 2020 Yes [id number] 500mg Take 1 [facility] LE 500 mg 1-06 tablet by ity o f tablet 00:00: mouth [place] 00 every 12 Medical (twelve) Branch hours. clotrimazol 2020- Yes [id number] Apply to [facility] e-betametha 1-06 area(s) 2 [facility] of sone cream 00:00: (two) [place] 00 times Medical daily. Use Branch for 2 weeks on affected area metroNIDAZO 2019-05 Yes [id number] 500mg Take 1 [facility] LE 500 mg 1-06 tablet by ity o f tablet 00:00: mouth [place] 00 every 12 Medical (twelve) Branch hours. clotrimazol 2020- Yes [id number] Apply to [facility] e-betametha 1-06 area(s) 2 ity of sone cream 00:00: (two) [place] 00 times Medical daily. Use Branch for 2 weeks on affected area metroNIDAZO 2020- Yes [id number] 500mg Take 1 [facility] LE 500 mg 1-06 tablet by ity o f tablet 00:00: mouth [place] 00 every 12 Medical (twelve) Branch hours. clotrimazol 2020- Yes [id number] Apply to [facility] e-betametha 1-06 area(s) 2 ity of sone cream 00:00: (two) [place] 00 times Medical daily. Use Branch for 2 weeks on affected area metroNIDAZO 2020- Yes [id number] 500mg Take 1 [facility] LE 500 mg 1-06 tablet by ity o f tablet 00:00: mouth [place] 00 every 12 Medical (twelve) Branch hours. clotrimazol 2020- Yes [id number] Apply to [facility] e-betametha 1-06 area(s) 2 it[facility] of sone cream 00:00: (two) [place] 00 times Medical daily. Use Branch for 2 weeks on affected area metroNIDAZO 2020- Yes [id number] 500mg Take 1 [facility] LE 500 mg 1-06 tablet by ity o f tablet 00:00: mouth [place] 00 every 12 Medical (twelve) Branch hours. clotrimazol 2020- Yes [id number] Apply to [facility] e-betametha 1-06 area(s) 2 ity of sone cream 00:00: (two) [place] 00 times Medical daily. Use Branch for 2 weeks on affected area metroNIDAZO 2020- Yes [id number] 500mg Take 1 [facility] LE 500 mg 1-06 tablet by ity o f tablet 00:00: mouth [place] 00 every 12 Medical (twelve) Branch hours. clotrimazol 2020- Yes [id number] Apply to [facility] e-betametha 1-06 area(s) 2 [facility] of sone cream 00:00: (two) [place] 00 times Medical daily. Use Branch for 2 weeks on affected area clotrimazol 2020- Yes [id number] Apply to [facility] e-betametha 1-06 area(s) 2 ity of sone cream 00:00: (two) [place] 00 times Medical daily. Use Branch for 2 weeks on affected area clotrimazol 2020- Yes [id number] Apply to [facility] e-betametha 1-06 area(s) 2 ity of sone cream 00:00: (two) [place] 00 times Medical daily. Use Branch for 2 weeks on affected area clotrimazol 2020- Yes [id number] Apply to [facility] e-betametha 1-06 area(s) 2 [facility] of sone cream 00:00: (two) [place] 00 times Medical daily. Use Branch for 2 weeks on affected area clotrimazol 2020- Yes [id number] Apply to [facility] e-betametha 1-06 area(s) 2 ity of sone cream 00:00: (two) [place] 00 times Medical daily. Use Branch for 2 weeks on affected area clotrimazol 2020-1 Yes [id number] Apply to [facility] e-betametha 1-06 area(s) 2 ity of sone cream 00:00: (two) [place] 00 times Medical daily. Use Branch for 2 weeks on affected area clotrimazol 2020-1 Yes [id number] Apply to [facility] e-betametha 1-06 area(s) 2 ity of sone cream 00:00: (two) [place] 00 times Medical daily. Use Branch for 2 weeks on affected area clotrimazol 2020-1 Yes [id number] Apply to [facility] e-betametha 1-06 area(s) 2 ity of sone cream 00:00: (two) [place] 00 times Medical daily. Use Branch for 2 weeks on affected area clotrimazol 2020-1 Yes [id number] Apply to [facility] e-betametha 1-06 area(s) 2 ity of sone cream 00:00: (two) [place] 00 times Medical daily. Use Branch for 2 weeks on affected area clotrimazol 2020-1 Yes [id number] Apply to [facility] e-betametha 1-06 area(s) 2 ity of sone cream 00:00: (two) [place] 00 times Medical daily. Use Branch for 2 weeks on affected area clotrimazol 2020-1 Yes [id number] Apply to [facility] e-betametha 1-06 area(s) 2 ity of sone cream 00:00: (two) [place] 00 times Medical daily. Use Branch for 2 weeks on affected area clotrimazol 2020-1 Yes [id number] Apply to [facility] e-betametha 1-06 area(s) 2 ity of sone cream 00:00: (two) [place] 00 times Medical daily. Use Branch for 2 weeks on affected area clotrimazol 2020-1 Yes [id number] Apply to [facility] e-betametha 1-06 area(s) 2 ity of sone cream 00:00: (two) [place] 00 times Medical daily. Use Branch for 2 weeks on affected area clotrimazol 2020-1 2020- No [id number] Apply to [facility] e-betametha 1-06 04-09 area(s) 2 it y of sone cream 00:00: 00:00 (two) [place] 00 :00 times Medical daily. Use Branch for 2 weeks on affected area clotrimazol 2019-05- No [id number] Apply to [facility] e-betametha 06-03 area(s) 2 it y of sone cream 00:00: 00:00 (two) [place] 00 :00 times Medical daily. Use Branch for 2 weeks on affected area metroNIDAZO 2019-05- No [id number] 500mg Take 1 [facility] LE 500 mg 06-03 tablet by [facility]y of tablet 00:00: 00:00 mouth [place] 00 :00 every 12 Medical (twelve) Branch hours. metroNIDAZO 2019-05- No [id number] 500mg Take 1 [facility] LE 500 mg 06-03 tablet by [facility]y of tablet 00:00: 00:00 mouth [place] 00 :00 every 12 Medical (twelve) Branch hours. fluconazole 2019-05- No [id number] 150mg Take 1 [facility] 150 mg 06-03 tablet by [facility] of tablet 00:00: 05:59 mouth [place] 00 :00 every 72 Medical (seventy-t Branch wo) hours for 2 doses. Take one tab now and a second dose in 72 hours fluconazole 2019-05- No [id number] 150mg Take 1 [facility] 150 mg 06-03 tablet by ity of tablet 00:00: 05:59 mouth [place] 00 :00 every 72 Medical (seventy-t Branch wo) hours for 2 doses. Take one tab now and a second dose in 72 hours fluconazole 2019-05- No [id number] 150mg Take 1 [facility] 150 mg 06-03 tablet by [facility] of tablet 00:00: 05:59 mouth [place] 00 :00 every 72 Medical (seventy-t Branch wo) hours for 2 doses. Take one tab now and a second dose in 72 hours fluconazole 2019-05- No [id number] 150mg Take 1 [facility] 150 mg 06-03 tablet by [facility] of tablet 00:00: 05:59 mouth [place] 00 :00 every 72 Medical (seventy-t Branch wo) hours for 2 doses. Take one tab now and a second dose in 72 hours PANTOPRAZOL 2019-05 Yes [id number] TAKE 1 [facility] E 40 mg EC 0-23 TABLET BY [facility] of tablet 00:00: MOUTH ONCE [place] 00 DAILY DO Medical NOT CRUSH Branch OR CHEW POTASSIUM 2020-1 Yes [id number] Take 1 [facility] CHLORIDE 10 0-23 tablet by [facility] of mEq CR 00:00: mouth once [place] tablet 00 daily Medical Branch PANTOPRAZOL 2020-1 Yes [id number] TAKE 1 [facility] E 40 mg EC 0-23 TABLET BY [facility] of tablet 00:00: MOUTH ONCE [place] 00 DAILY DO Medical NOT CRUSH Branch OR CHEW POTASSIUM 2020-1 Yes [id number] Take 1 [facility] CHLORIDE 10 0-23 tablet by [facility]y of mEq CR 00:00: mouth once [place] tablet 00 daily Medical Branch PANTOPRAZOL 2020-1 Yes [id number] TAKE 1 [facility] E 40 mg EC 0-23 TABLET BY ity of tablet 00:00: MOUTH ONCE 00 DAILY DO Medical NOT CRUSH Branch OR CHEW POTASSIUM 2020-1 Yes [id number] Take 1 [facility] CHLORIDE 10 0-23 tablet by [facility] of mEq CR 00:00: mouth once [place] tablet 00 daily Medical Branch PANTOPRAZOL 2020-1 Yes [id number] TAKE 1 [facility] E 40 mg EC 0-23 TABLET BY [facility] of tablet 00:00: MOUTH ONCE [place] 00 DAILY DO Medical NOT CRUSH Branch OR CHEW POTASSIUM 2020-1 Yes [id number] Take 1 [facility] CHLORIDE 10 0-23 tablet by [facility] of mEq CR 00:00: mouth once [place] tablet 00 daily Medical Branch PANTOPRAZOL 2020-1 Yes [id number] TAKE 1 [facility] E 40 mg EC 0-23 TABLET BY [facility] of tablet 00:00: MOUTH ONCE 00 DAILY DO Medical NOT CRUSH Branch OR CHEW POTASSIUM 2020-1 Yes [id number] Take 1 [facility] CHLORIDE 10 0-23 tablet by [facility] of mEq CR 00:00: mouth once [place] tablet 00 daily Medical Branch PANTOPRAZOL 2020-1 Yes [id number] TAKE 1 [facility] E 40 mg EC 0-23 TABLET BY [facility] of tablet 00:00: MOUTH ONCE [place] 00 DAILY DO Medical NOT CRUSH Branch OR CHEW POTASSIUM 2020-1 Yes [id number] Take 1 [facility] CHLORIDE 10 0-23 tablet by [facility] of mEq CR 00:00: mouth once [place] tablet 00 daily Medical Branch PANTOPRAZOL 2020-1 Yes [id number] TAKE 1 [facility] E 40 mg EC 0-23 TABLET BY [facility]y of tablet 00:00: MOUTH ONCE [place] 00 DAILY DO Medical NOT CRUSH Branch OR CHEW POTASSIUM 2020-1 Yes [id number] Take 1 [facility] CHLORIDE 10 0-23 tablet by [facility]y of mEq CR 00:00: mouth once [place] tablet 00 daily Medical Branch PANTOPRAZOL 2020-1 Yes [id number] TAKE 1 [facility] E 40 mg EC 0-23 TABLET BY ity of tablet 00:00: MOUTH ONCE [place] 00 DAILY DO Medical NOT CRUSH Branch OR CHEW POTASSIUM 2020-1 Yes [id number] Take 1 [facility] CHLORIDE 10 0-23 tablet by [facility] of mEq CR 00:00: mouth once [place] tablet 00 daily Medical Branch PANTOPRAZOL 2019- 2020- No [id number] TAKE 1 [facility] E 40 mg EC 0-23 11-18 TABLET BY [facility] of tablet 00:00: 00:00 MOUTH ONCE [place] 00 :00 DAILY DO Medical NOT CRUSH Branch OR CHEW POTASSIUM 2019- 2020- No [id number] Take 1 [facility] CHLORIDE 10 0-23 11-18 tablet by it y of mEq CR 00:00: 00:00 mouth once [place] tablet 00 :00 daily Medical Branch gabapentin 2020- Yes [id number] 800mg Take 1 [facility] 800 mg 0-14 tablet by [facility]y of tablet 00:00: mouth 3 (three) Medical times Branch daily. gabapentin 2020-1 Yes [id number] 800mg Take 1 [facility] 800 mg 0-14 tablet by [facility]y of tablet 00:00: mouth (three) Medical times Branch daily. gabapentin 2020-1 Yes [id number] 800mg Take 1 [facility] 800 mg 0-14 tablet by [facility] of tablet 00:00: mouth (three) Medical times Branch daily. gabapentin 2020-1 Yes [id number] 800mg Take 1 [facility] 800 mg 0-14 tablet by [facility]y of tablet 00:00: mouth 3 (three) Medical times Branch daily. gabapentin 2020-1 Yes [id number] 800mg Take 1 [facility] 800 mg 0-14 tablet by [facility] of tablet 00:00: mouth 3 (three) Medical times Branch daily. gabapentin 2020-1 Yes [id number] 800mg Take 1 [facility] 800 mg 0-14 tablet by [facility] of tablet 00:00: mouth 3 (three) Medical times Branch daily. gabapentin 2020-1 Yes [id number] 800mg Take 1 [facility] 800 mg 0-14 tablet by [facility] of tablet 00:00: mouth 3 [place] 00 (three) Medical times Branch daily. gabapentin 2020-1 Yes [id number] 800mg Take 1 [facility] 800 mg 0-14 tablet by [facility] of tablet 00:00: mouth 3 [place] 00 (three) Medical times Branch daily. gabapentin 2020-1 2020- No [id number] 800mg Take 1 [facility] 800 mg 0-14 11-16 tablet by [facility] of tablet 00:00: 00:00 mouth 3 [place] 00 :00 (three) Medical times Branch daily. FUROSEMIDE 2020-0 Yes [id number] Take 1 [facility] 20 mg 8-18 tablet by [facility]y of tablet 00:00: mouth once daily Medical Branch FUROSEMIDE 2020-0 Yes [id number] Take 1 [facility] 20 mg 8-18 tablet by ity of tablet 00:00: mouth once daily Medical Branch FUROSEMIDE 2020-0 Yes [id number] Take 1 [facility] 20 mg 8-18 tablet by ity of tablet 00:00: mouth once daily Medical Branch FUROSEMIDE 2020-0 Yes [id number] Take 1 [facility] 20 mg 8-18 tablet by ity of tablet 00:00: mouth once daily Medical Branch FUROSEMIDE 2020-0 Yes [id number] Take 1 [facility] 20 mg 8-18 tablet by [facility]y of tablet 00:00: mouth once [place] daily Medical Branch FUROSEMIDE 2020-0 Yes [id number] Take 1 [facility] 20 mg 8-18 tablet by ity of tablet 00:00: mouth once [place] daily Medical Branch FUROSEMIDE 2020-0 Yes [id number] Take 1 [facility] 20 mg 8-18 tablet by ity of tablet 00:00: mouth once [place] daily Medical Branch FUROSEMIDE 2020-0 Yes [id number] Take 1 [facility] 20 mg 8-18 tablet by ity of tablet 00:00: mouth once daily Medical Branch FUROSEMIDE 2020-0 Yes [id number] Take 1 [facility] 20 mg 8-18 tablet by ity of tablet 00:00: mouth once [place] daily Medical Branch FUROSEMIDE 2020-0 Yes [id number] Take 1 [facility] 20 mg 8-18 tablet by ity of tablet 00:00: mouth once daily Medical Branch FUROSEMIDE 2020-0 Yes [id number] Take 1 [facility] 20 mg 8-18 tablet by ity of tablet 00:00: mouth once daily Medical Branch FUROSEMIDE 2020-0 Yes [id number] Take 1 [facility] 20 mg 8-18 tablet by ity of tablet 00:00: mouth once [place] 00 daily Medical Branch FUROSEMIDE 2020-0 2020- No [id number] Take 1 [facility] 20 mg 8-18 11-18 tablet by [facility] tablet 00:00: 00:00 mouth once [place] 00 :00 daily Medical [facility] fluconazole 2020-0 2020- No [id number] 150mg Take 1 [facility] 150 mg 8-14 08-15 tablet by [facility] tablet 00:00: 04:59 mouth once [place] 00 :00 now for 1 Medical dose. Branch fluconazole 2020-0 2020- No [id number] 150mg Take 1 [facility] 150 mg 8-14 08-15 tablet by [facility] tablet 00:00: 04:59 mouth once [place] 00 :00 now for 1 Medical dose. Branch gabapentin 2020-0 Yes [id number] 800mg Take 1 [facility] 800 mg 7-15 tablet by ity of tablet 00:00: mouth 3 (three) Medical times Branch daily. gabapentin 2020-0 Yes [id number] 800mg Take 1 [facility] 800 mg 7-15 tablet by ity of tablet 00:00: mouth (three) Medical times Branch daily. gabapentin 2020-0 Yes [id number] 800mg Take 1 [facility] 800 mg 7-15 tablet by [facility]y of tablet 00:00: mouth 3 (three) Medical times Branch daily. gabapentin 2020-0 Yes [id number] 800mg Take 1 [facility] 800 mg 7-15 tablet by [facility]y of tablet 00:00: mouth 3 (three) Medical times Branch daily. gabapentin 2020-0 Yes [id number] 800mg Take 1 [facility] 800 mg 7-15 tablet by [facility]y of tablet 00:00: mouth (three) Medical times Branch daily. gabapentin 2020-0 Yes [id number] 800mg Take 1 [facility] 800 mg 7-15 tablet by [facility]y of tablet 00:00: mouth 3 (three) Medical times Branch daily. gabapentin 2020-0 Yes [id number] 800mg Take 1 [facility] 800 mg 7-15 tablet by [facility]y of tablet 00:00: mouth 3 (three) Medical times Branch daily. gabapentin 2020-0 2020- No [id number] 800mg Take 1 [facility] 800 mg 7-15 10-14 tablet by [facility]y of tablet 00:00: 00:00 mouth 3 [place] 00 :00 (three) Medical times Branch daily. metFORMIN 2020-0 Yes 1000mg Take 2 [facility] ers 500 mg 7-09 tablets by [facility]y of tablet 00:00: mouth 2 (two) Medical times Branch daily with meals. pantoprazol 2020-0 Yes [id number] 40mg Take 1 [facility] e 40 mg EC 7-09 tablet by ity of tablet 00:00: mouth [place] 00 daily. Do Medical not Crush Branch or Chew DULOXETINE 2020-0 Yes [id number] Take 1 [facility] 30 mg 7-09 capsule by [facility] of capsule 00:00: mouth once [place] 00 daily Medical Branch metFORMIN 2020-0 Yes 1000mg Take 2 [facility] ers 500 mg 7-09 tablets by ity of tablet 00:00: mouth 2 (two) Medical times Branch daily with meals. POTASSIUM 2020-0 Yes [id number] Take 1 [facility] CHLORIDE 10 7-09 tablet by ity of mEq CR 00:00: mouth once [place] tablet 00 daily Medical Branch pantoprazol 2020-0 Yes [id number] 40mg Take 1 [facility] e 40 mg EC 7-09 tablet by ity of tablet 00:00: mouth 00 daily. Do Medical not Crush Branch or Chew DULOXETINE 2020-0 Yes [id number] Take 1 [facility] 30 mg 7-09 capsule by [facility] of capsule 00:00: mouth once [place] 00 daily Medical Branch metFORMIN 2020-0 Yes 1000mg Take 2 [facility] ers 500 mg 7-09 tablets by ity of tablet 00:00: mouth (two) Medical times Branch daily with meals. POTASSIUM 2020-0 Yes [id number] Take 1 [facility] CHLORIDE 10 7-09 tablet by ity of mEq CR 00:00: mouth once [place] tablet 00 daily Medical Branch pantoprazol 2020-0 Yes [id number] 40mg Take 1 [facility] e 40 mg EC 7-09 tablet by ity of tablet 00:00: mouth [place] 00 daily. Do Medical not Crush Branch or Chew DULOXETINE 2020-0 Yes [id number] Take 1 [facility] 30 mg 7-09 capsule by [facility] of capsule 00:00: mouth once [place] 00 daily Medical Branch metFORMIN 2020-0 Yes 1000mg Take 2 [facility] ers 500 mg 7-09 tablets by ity of tablet 00:00: mouth 2 (two) Medical times Branch daily with meals. POTASSIUM 2020-0 Yes [id number] Take 1 [facility] CHLORIDE 10 7-09 tablet by ity of mEq CR 00:00: mouth once [place] tablet 00 daily Medical Branch pantoprazol 2020-0 Yes [id number] 40mg Take 1 [facility] e 40 mg EC 7-09 tablet by ity of tablet 00:00: mouth [place] 00 daily. Do Medical not Crush Branch or Chew DULOXETINE 2020-0 Yes [id number] Take 1 [facility] 30 mg 7-09 capsule by [facility] of capsule 00:00: mouth once [place] 00 daily Medical Branch metFORMIN 2020-0 Yes 1000mg Take 2 [facility] ers 500 mg 7-09 tablets by ity of tablet 00:00: mouth 2 (two) Medical times Branch daily with meals. POTASSIUM 2020-0 Yes [id number] Take 1 [facility] CHLORIDE 10 7-09 tablet by ity of mEq CR 00:00: mouth once [place] tablet 00 daily Medical Branch pantoprazol 2020-0 Yes [id number] 40mg Take 1 [facility] e 40 mg EC 7-09 tablet by ity of tablet 00:00: mouth [place] 00 daily. Do Medical not Crush Branch or Chew DULOXETINE 2020-0 Yes [id number] Take 1 [facility] 30 mg 7-09 capsule by [facility] of capsule 00:00: mouth once [place] 00 daily Medical [facility] metFORMIN 2020-0 Yes 1000mg Take 2 [facility] ers 500 mg 7-09 tablets by ity of tablet 00:00: mouth 2 (two) Medical times Branch daily with meals. POTASSIUM 2020-0 Yes [id number] Take 1 [facility] CHLORIDE 10 7-09 tablet by [facility]y of mEq CR 00:00: mouth once [place] tablet 00 daily Medical Branch pantoprazol 2020-0 Yes [id number] 40mg Take 1 [facility] e 40 mg EC 7-09 tablet by ity of tablet 00:00: mouth [place] 00 daily. Do Medical not Crush Branch or Chew DULOXETINE 2020-0 Yes [id number] Take 1 [facility] 30 mg 7-09 capsule by [facility] of capsule 00:00: mouth once [place] 00 daily Medical [facility] metFORMIN 2020-0 Yes 1000mg Take 2 [facility] ers 500 mg 7-09 tablets by ity of tablet 00:00: mouth 2 (two) Medical times Branch daily with meals. POTASSIUM 2020-0 Yes [id number] Take 1 [facility] CHLORIDE 10 7-09 tablet by ity of mEq CR 00:00: mouth once [place] tablet 00 daily Medical Branch pantoprazol 2020-0 Yes [id number] 40mg Take 1 [facility] e 40 mg EC 7-09 tablet by ity of tablet 00:00: mouth [place] 00 daily. Do Medical not Crush Branch or Chew DULOXETINE 2020-0 Yes [id number] Take 1 [facility] 30 mg 7-09 capsule by [facility] of capsule 00:00: mouth once [place] 00 daily Medical [facility] metFORMIN 2020-0 Yes 1000mg Take 2 [facility] ers 500 mg 7-09 tablets by ity of tablet 00:00: mouth 2 (two) Medical times Branch daily with meals. POTASSIUM 2020-0 Yes [id number] Take 1 [facility] CHLORIDE 10 7-09 tablet by ity of mEq CR 00:00: mouth once [place] tablet 00 daily Medical Branch pantoprazol 2020-0 Yes [id number] 40mg Take 1 [facility] e 40 mg EC 7-09 tablet by ity of tablet 00:00: mouth 00 daily. Do Medical not Crush Branch or Chew DULOXETINE 2020-0 Yes [id number] Take 1 [facility] 30 mg 7-09 capsule by [facility] of capsule 00:00: mouth once [place] 00 daily Medical [facility] metFORMIN 2020-0 Yes 1000mg Take 2 [facility] ers 500 mg 7-09 tablets by ity of tablet 00:00: mouth 2 (two) Medical times Branch daily with meals. POTASSIUM 2020-0 Yes [id number] Take 1 [facility] CHLORIDE 10 7-09 tablet by ity of mEq CR 00:00: mouth once [place] tablet 00 daily Medical Branch pantoprazol 2020-0 Yes [id number] 40mg Take 1 [facility] e 40 mg EC 7-09 tablet by ity of tablet 00:00: mouth 00 daily. Do Medical not Crush Branch or Chew DULOXETINE 2020-0 Yes [id number] Take 1 [facility] 30 mg 7-09 capsule by [facility] capsule 00:00: mouth once [place] 00 daily Medical [facility] metFORMIN 2020-0 Yes 1000mg Take 2 [facility] ers 500 mg 7-09 tablets by ity of tablet 00:00: mouth 2 (two) Medical times Branch daily with meals. POTASSIUM 2020-0 Yes [id number] Take 1 [facility] CHLORIDE 10 7-09 tablet by ity of mEq CR 00:00: mouth once [place] tablet 00 daily Medical Branch DULOXETINE 2020-0 Yes [id number] Take 1 [facility] 30 mg 7-09 capsule by [facility] capsule 00:00: mouth [place] 00 daily [facility] metFORMIN 2020-0 Yes 1000mg Take 2 [facility] ers 500 mg 7-09 tablets by ity of tablet 00:00: mouth [place] (two) Medical times Branch daily with meals. DULOXETINE 2020-0 Yes [id number] Take 1 [facility] 30 mg 7-09 capsule by [facility] capsule 00:00: mouth [place] 00 daily Medical Branch metFORMIN 2020-0 Yes 1000mg Take 2 [facility] ers 500 mg 7-09 tablets by ity of tablet 00:00: mouth [place] (two) Medical times Branch daily with meals. DULOXETINE 2020-0 Yes [id number] Take 1 [facility] 30 mg 7-09 capsule by [facility] capsule 00:00: mouth [place] 00 daily Medical Branch metFORMIN 2020-0 Yes 1000mg Take 2 [facility] ers 500 mg 7-09 tablets by ity of tablet 00:00: mouth [place] ([facility]) Medical times Branch daily with meals. DULOXETINE 2020-0 Yes [id number] Take 1 [facility] 30 mg 7-09 capsule by [facility] capsule 00:00: mouth [place] 00 daily Medical Branch metFORMIN 2020-0 Yes 1000mg Take 2 [facility] ers 500 mg 7-09 tablets by ity of tablet 00:00: mouth [place] ([facility]) Medical times Branch daily with meals. DULOXETINE 2020-0 Yes [id number] Take 1 [facility] 30 mg 7-09 capsule by [facility] of capsule 00:00: mouth [place] 00 daily Medical Branch metFORMIN 2020-0 Yes 1000mg Take 2 [facility] ers 500 mg 7-09 tablets by ity of tablet 00:00: mouth [place] ([facility]) Medical times Branch daily with meals. DULOXETINE 2020-0 Yes [id number] Take 1 [facility] 30 mg 7-09 capsule by [facility]y of capsule 00:00: mouth [place] 00 daily Medical Branch metFORMIN 2020-0 Yes 1000mg Take 2 [facility] ers 500 mg 7-09 tablets by ity of tablet 00:00: mouth [place] (two) Medical times Branch daily with meals. DULOXETINE 2020-0 Yes [id number] Take 1 [facility] 30 mg 7-09 capsule by [facility] of capsule 00:00: mouth [place] 00 daily Medical Branch metFORMIN 2020-0 Yes 1000mg Take 2 [facility] ers 500 mg 7-09 tablets by ity of tablet 00:00: mouth 2 [place] (two) Medical times Branch daily with meals. DULOXETINE 2020-0 Yes [id number] Take 1 [facility] 30 mg 7-09 capsule by [facility] of capsule 00:00: mouth [place] 00 daily Medical Branch metFORMIN 2020-0 Yes 1000mg Take 2 [facility] ers 500 mg 7-09 tablets by ity of tablet 00:00: mouth 2 [place] (two) Medical times Branch daily with meals. DULOXETINE 2020-0 Yes [id number] Take 1 [facility] 30 mg 7-09 capsule by [facility] of capsule 00:00: mouth [place] daily Medical Branch metFORMIN 2020-0 Yes 1000mg Take 2 [facility] ers 500 mg 7-09 tablets by ity of tablet 00:00: mouth 2 [place] (two) Medical times Branch daily with meals. DULOXETINE 2020-0 Yes [id number] Take 1 [facility] 30 mg 7-09 capsule by [facility] of capsule 00:00: mouth [place] daily Medical Branch metFORMIN 2020-0 Yes 1000mg Take 2 [facility] ers 500 mg 7-09 tablets by ity of tablet 00:00: mouth [place] ([facility]) Medical times Branch daily with meals. DULOXETINE 2020-0 Yes [id number] Take 1 [facility] 30 mg 7-09 capsule by it[facility] of capsule 00:00: mouth [place] 00 daily Medical Branch metFORMIN 2020-0 Yes 1000mg Take 2 [facility] ers 500 mg 7-09 tablets by ity of tablet 00:00: mouth [place] (two) Medical times Branch daily with meals. DULOXETINE 2020-0 Yes [id number] Take 1 [facility] 30 mg 7-09 capsule by [facility]y of capsule 00:00: mouth [place] 00 daily Medical Branch metFORMIN 2020-0 Yes 1000mg Take 2 [facility] ers 500 mg 7-09 tablets by ity of tablet 00:00: mouth 2 [place] (two) Medical times Branch daily with meals. DULOXETINE 2020-0 Yes [id number] Take 1 [facility] 30 mg 7-09 capsule by ity of capsule 00:00: mouth [place] 00 daily Medical Branch metFORMIN 2020-0 Yes 1000mg Take 2 [facility] ers 500 mg 7-09 tablets by ity of tablet 00:00: mouth 2 [place] (two) Medical times Branch daily with meals. DULOXETINE 2020-0 Yes [id number] Take 1 [facility] 30 mg 7-09 capsule [...] tablets by ity of tablet 00:00: mouth [place] (two) Medical times Branch daily with meals. metFORMIN 2020-0 Yes 1000mg Take 2 [facility] ers 500 mg 7-09 tablets by ity of tablet 00:00: mouth [place] (two) Medical times Branch daily with meals. metFORMIN 2020-0 Yes 1000mg Take 2 [facility] ers 500 mg 7-09 tablets by ity of tablet 00:00: mouth [place] (two) Medical times Branch daily with meals. metFORMIN 2020-0 Yes 1000mg Take 2 [facility] ers 500 mg 7-09 tablets by ity of tablet 00:00: mouth [place] (two) Medical times Branch daily with meals. metFORMIN 2020-0 Yes 1000mg Take 2 [facility] ers 500 mg 7-09 tablets by ity of tablet 00:00: mouth [place] (two) Medical times Branch daily with meals. metFORMIN 2020-0 Yes 1000mg Take 2 [facility] ers 500 mg 7-09 tablets by ity of tablet 00:00: mouth [place] (two) Medical times Branch daily with meals. metFORMIN 2020-0 1- No 1000mg Take 2 [facility] vers 500 mg 7-09 03-09 tablets by ity of tablet 00:00: 00:00 mouth 2 [place] 00 :00 (two) Medical times Branch daily with meals. DULOXETINE 2020-0 2020- No [id number] Take 1 [facility] 30 mg 7-09 12-19 capsule by ity of capsule 00:00: 00:00 mouth once [place] 00 :00 daily Medical Branch DULOXETINE 2020-0 2020- No [id number] Take 1 [facility] 30 mg 12-04 capsule by ity of capsule 00:00: 00:00 mouth once [place] 00 :00 daily Medical Branch pantoprazol 2019-0 2020- No [id number] 40mg Take 1 [facility] e 40 mg EC 12-04 tablet by ity of tablet 00:00: 00:00 mouth [place] 00 :00 daily. Do Medical not Crush Branch or Chew POTASSIUM 2020-0 2020- No [id number] Take 1 U nivers CHLORIDE 10 12-04 tablet by it y of mEq CR 00:00: 00:00 mouth [place] tablet 00 :00 daily Medical Branch PANTOPRAZOL 2020-0 Yes [id number] Take 1 [facility] E 40 mg EC 6-08 tablet by ity of tablet 00:00: mouth once [place] 00 daily Medical Branch POTASSIUM 2020-0 Yes [id number] Take 1 [facility] [place] CHLORIDE 10 6-08 tablet by ity of mEq CR 00:00: mouth once [place] tablet 00 daily Medical Branch PANTOPRAZOL 2020-0 Yes [id number] Take 1 [facility] E 40 mg EC 6-08 tablet by ity of tablet 00:00: mouth once [place] 00 daily Medical Branch POTASSIUM 2020-0 Yes [id number] Take 1 [place] CHLORIDE 10 6-08 [...] 33 daily. Medical Branch GABAPENTIN 2020-0 Yes [id number] TAKE 1 [facility] 800 mg 5-05 TABLET BY ity of tablet 00:00: MOUTH [place] 00 THREE Medical TIMES Branch DAILY GABAPENTIN 2020-0 Yes [id number] TAKE 1 [facility] 800 mg 5-05 TABLET BY ity of tablet 00:00: [facility] TIMES Branch DAILY GABAPENTIN 2020-0 Yes [id number] TAKE 1 [facility] 800 mg 5-05 TABLET BY ity of tablet 00:00: [facility] Medical TIMES Branch DAILY GABAPENTIN 2020-0 Yes [id number] TAKE 1 [facility] 800 mg 5-05 TABLET BY ity of tablet 00:00: [facility] Medical TIMES Branch DAILY GABAPENTIN 2020-0 Yes [id number] TAKE 1 [facility] 800 mg 5-05 TABLET BY ity of tablet 00:00: [facility] Medical TIMES Branch DAILY GABAPENTIN 2020-0 Yes [id number] TAKE 1 [facility] 800 mg 5-05 TABLET BY ity of tablet 00:00: [facility] TIMES Branch DAILY GABAPENTIN 2020-0 Yes [id number] TAKE 1 [facility] 800 mg 5-05 TABLET BY ity of tablet 00:00: [facility] TIMES Branch DAILY GABAPENTIN 2020-0 Yes [id number] TAKE 1 [facility] 800 mg 5-05 TABLET BY ity of tablet 00:00: [facility] TIMES Branch DAILY GABAPENTIN 2020-0 Yes [id number] TAKE 1 [facility] 800 mg 5-05 TABLET BY ity of tablet 00:00: [facility] TIMES Branch DAILY GABAPENTIN 2020-0 Yes [id number] TAKE 1 [facility] 800 mg 5-05 TABLET BY ity of tablet 00:00: [address] TIMES Branch DAILY GABAPENTIN 2020-0 2020- No [id number] TAKE 1 [facility] 800 mg 5-05 07-15 TABLET BY ity of tablet 00:00: 00:00 [facility] 00 :00 [facility] TIMES Branch DAILY metoprolol 2020-0 Yes 100mg 100 mg, Uni vers succinate 3-21 Oral, ity of XL (TOPROL 14:00: DAILY, [place] XL) tablet 00 First dose Med ical 100 mg on Sat Branch 08/17/19 at 0900, Until Discontinu ed, Routine atorvastati 2020-0 Yes 80mg 80 mg, Univ ers n (LIPITOR) 3-21 Oral, QHS, it y of tablet 80 02:00: First dose [place] mg 00 on Fri Medical 08/16/19 at Branch 2100, Until Discontinu ed, Routine metoprolol 2020-0 Yes 50mg 50 mg, Unive rs tartrate 3-21 Oral, BID, ity o f (LOPRESSOR) 01:00: First dose [place] tablet 50 00 on Fri Medical mg 08/16/19 at Branch 2000, Until Discontinu ed, Routine metoprolol 2020-0 Yes [id number] 100mg Take 1 [facility] succinate 3-21 07 tablet by ity o f XL 100 mg 00:00: mouth [place] 24 hr 00 daily. Medical tablet [place] azithromyci 2020-0 Yes [id number] 250mg Take 1 [facility] n 250 mg 3-21 07 tablet by ity of tablet 00:00: mouth [place] 00 daily. Medical Take 250 Branch mg tablet once daily metoprolol 2020-0 Yes [id number] 100mg Take 1 [facility] succinate 3-21 07 tablet by ity o f XL 100 mg 00:00: mouth [place] 24 hr 00 daily. Medical tablet [place] azithromyci 2020-0 Yes [id number] 250mg Take 1 [facility] n 250 mg 3-21 07 tablet by ity of tablet 00:00: mouth [place] 00 daily. Medical Take 250 Branch mg tablet once daily metoprolol 2020-0 Yes [id number] 100mg Take 1 [facility] succinate 3-21 07 tablet by ity o f XL 100 mg 00:00: mouth [place] 24 hr 00 daily. Medical tablet [place] azithromyci 2020-0 Yes [id number] 250mg Take 1 [facility] n 250 mg 3-21 07 tablet by ity of tablet 00:00: mouth [place] 00 daily. Medical Take 250 Branch mg tablet once daily metoprolol 2020-0 Yes [id number] 100mg Take 1 [facility] succinate 3-21 07 tablet by ity o f XL 100 mg 00:00: mouth [place] 24 hr 00 daily. Medical tablet [place] azithromyci 2020-0 Yes [id number] 250mg Take 1 [facility] n 250 mg 3-21 07 tablet by ity of tablet 00:00: mouth [place] 00 daily. Medical Take 250 Branch mg tablet once daily metoprolol 2020-0 Yes [id number] 100mg Take 1 [facility] succinate 3-21 07 tablet by ity o f XL 100 mg 00:00: mouth [place] 24 hr 00 daily. Medical tablet [place] azithromyci 2020-0 Yes [id number] 250mg Take 1 [facility] n 250 mg 3-21 07 tablet by ity of tablet 00:00: mouth [place] 00 daily. Medical Take 250 Branch mg tablet once daily metoprolol 2020-0 Yes [id number] 100mg Take 1 [facility] succinate 3-21 07 tablet by ity o f XL 100 mg 00:00: mouth [place] 24 hr 00 daily. Medical tablet Branch azithromyci 2020-0 Yes [id number] 250mg Take 1 [facility] n 250 mg 3-21 07 tablet by ity of tablet 00:00: mouth [place] 00 daily. Medical Take 250 Branch mg tablet once daily metoprolol 2020-0 Yes [id number] 100mg Take 1 [facility] succinate 3-21 07 tablet by ity o f XL 100 mg 00:00: mouth [place] 24 hr 00 daily. Medical tablet Branch azithromyci 2020-0 Yes [id number] 250mg Take 1 [facility] n 250 mg 3-21 07 tablet by ity of tablet 00:00: mouth [place] 00 daily. Medical Take 250 Branch mg tablet once daily metoprolol 2020-0 Yes [id number] 100mg Take 1 [facility] succinate 3-21 07 tablet by ity o f XL 100 mg 00:00: mouth [place] 24 hr 00 daily. Medical tablet Branch azithromyci 2020-0 Yes [id number] 250mg Take 1 [facility] n 250 mg 3-21 07 tablet by ity of tablet 00:00: mouth [place] 00 daily. Medical Take 250 Branch mg tablet once daily metoprolol 2020-0 Yes [id number] 100mg Take 1 [facility] succinate 3-21 07 tablet by ity o f XL 100 mg 00:00: mouth [place] 24 hr 00 daily. Medical tablet Branch azithromyci 2020-0 Yes [id number] 250mg Take 1 [facility] n 250 mg 3-21 07 tablet by ity of tablet 00:00: mouth [place] 00 daily. Medical Take 250 Branch mg tablet once daily metoprolol 2020-0 Yes [id number] 100mg Take 1 [facility] succinate 3-21 07 tablet by ity o f XL 100 mg 00:00: mouth [place] 24 hr 00 daily. Medical tablet Branch azithromyci 2020-0 Yes [id number] 250mg Take 1 [facility] n 250 mg 3-21 07 tablet by ity of tablet 00:00: mouth [place] 00 daily. Medical Take 250 Branch mg tablet once daily metoprolol 2020-0 Yes [id number] 100mg Take 1 [facility] succinate 3-21 07 tablet by ity o f XL 100 mg 00:00: mouth [place] 24 hr 00 daily. Medical tablet Branch azithromyci 2020-0 Yes [id number] 250mg Take 1 [facility] n 250 mg 3-21 07 tablet by ity of tablet 00:00: mouth [place] 00 daily. Medical Take 250 Branch mg tablet once daily metoprolol 2020-0 Yes [id number] 100mg Take 1 [facility] succinate 3-21 07 tablet by ity o f XL 100 mg 00:00: mouth [place] 24 hr 00 daily. Medical tablet Branch azithromyci 2020-0 Yes [id number] 250mg Take 1 [facility] n 250 mg 3-21 07 tablet by ity of tablet 00:00: mouth [place] 00 daily. Medical Take 250 Branch mg tablet once daily metoprolol 2020-0 Yes [id number] 100mg Take 1 [facility] succinate 3-21 07 tablet by ity o f XL 100 mg 00:00: mouth [place] 24 hr 00 daily. Medical tablet Branch azithromyci 2020-0 Yes [id number] 250mg Take 1 [facility] n 250 mg 3-21 07 tablet by ity of tablet 00:00: mouth [place] 00 daily. Medical Take 250 Branch mg tablet once daily metoprolol 2020-0 Yes [id number] 100mg Take 1 [facility] succinate 3-21 07 tablet by ity o f XL 100 mg 00:00: mouth [place] 24 hr 00 daily. Medical tablet Branch azithromyci 2020-0 Yes [id number] 250mg Take 1 [facility] n 250 mg 3-21 07 tablet by ity of tablet 00:00: mouth [place] 00 daily. Medical Take 250 Branch mg tablet once daily metoprolol 2020-0 Yes [id number] 100mg Take 1 [facility] succinate 3-21 tablet by ity o f XL 100 mg 00:00: mouth [place] 24 hr 00 daily. Medical tablet Branch azithromyci 2020-0 Yes [id number] 250mg Take 1 [facility] n 250 mg 3-21 tablet by ity of tablet 00:00: mouth [place] 00 daily. Medical Take 250 Branch mg tablet once daily metoprolol 2020-0 Yes [id number] 100mg Take 1 [facility] succinate 3-21 tablet by ity o f XL 100 mg 00:00: mouth [place] 24 hr 00 daily. Medical tablet Branch azithromyci 2020-0 Yes [id number] 250mg Take 1 [facility] n 250 mg 3-21 tablet by ity of tablet 00:00: mouth [place] 00 daily. Medical Take 250 Branch mg tablet once daily metoprolol 2020-0 Yes [id number] 100mg Take 1 [facility] succinate 3-21 tablet by ity o f XL 100 mg 00:00: mouth [place] 24 hr 00 daily. Medical tablet Branch azithromyci 2020-0 Yes [id number] 250mg Take 1 [facility] n 250 mg 3-21 tablet by ity of tablet 00:00: mouth [place] 00 daily. Medical Take 250 Branch mg tablet once daily metoprolol 2020-0 Yes [id number] 100mg Take 1 [facility] succinate 3-21 tablet by ity o f XL 100 mg 00:00: mouth [place] 24 hr 00 daily. Medical tablet Branch metoprolol 2020-0 Yes [id number] 100mg Take 1 [facility] succinate 3-21 tablet by ity o f XL 100 mg 00:00: mouth [place] 24 hr 00 daily. Medical tablet Branch metoprolol 2020-0 Yes [id number] 100mg Take 1 [facility] succinate 3-21 tablet by ity o f XL 100 mg 00:00: mouth [place] 24 hr 00 daily. Medical tablet Branch metoprolol 2020-0 Yes [id number] 100mg Take 1 [facility] succinate 3-21 tablet by ity o f XL 100 mg 00:00: mouth [place] 24 hr 00 daily. Medical tablet Branch metoprolol 2020-0 Yes [id number] 100mg Take 1 [facility] succinate 3-21 tablet by ity o f XL 100 mg 00:00: mouth [place] 24 hr 00 daily. Medical tablet Branch metoprolol 2020-0 Yes [id number] 100mg Take 1 [facility] succinate 3-21 tablet by ity o f XL 100 mg 00:00: mouth [place] 24 hr 00 daily. Medical tablet Branch metoprolol 2020-0 Yes [id number] 100mg Take 1 [facility] succinate 3-21 tablet by ity o f XL 100 mg 00:00: mouth [place] 24 hr 00 daily. Medical tablet Branch metoprolol 2020-0 Yes [id number] 100mg Take 1 [facility] succinate 3-21 tablet by ity o f XL 100 mg 00:00: mouth [place] 24 hr 00 daily. Medical tablet Branch metoprolol 2020-0 Yes [id number] 100mg Take 1 [facility] succinate 3-21 tablet by ity o f XL 100 mg 00:00: mouth [place] 24 hr 00 daily. Medical tablet Branch metoprolol 2020-0 Yes [id number] 100mg Take 1 [facility] succinate 3-21 tablet by ity o f XL 100 mg 00:00: mouth [place] 24 hr 00 daily. Medical tablet Branch metoprolol 2020-0 Yes [id number] 100mg Take 1 [facility] succinate 3-21 tablet by ity o f XL 100 mg 00:00: mouth [place] 24 hr 00 daily. Medical tablet Branch metoprolol 2020-0 Yes [id number] 100mg Take 1 [facility] succinate 3-21 tablet by ity o f XL 100 mg 00:00: mouth [place] 24 hr 00 daily. Medical tablet Branch metoprolol 2020-0 Yes [id number] 100mg Take 1 [facility] succinate 3-21 tablet by ity o f XL 100 mg 00:00: mouth [place] 24 hr 00 daily. Medical tablet Branch metoprolol 2020-0 Yes [id number] 100mg Take 1 [facility] succinate 3-21 tablet by ity o f XL 100 mg 00:00: mouth [place] 24 hr 00 daily. Medical tablet Branch metoprolol 2020-0 Yes [id number] 100mg Take 1 [facility] succinate 3-21 tablet by ity o f XL 100 mg 00:00: mouth [place] 24 hr 00 daily. Medical tablet Branch metoprolol 2020-0 Yes [id number] 100mg Take 1 [facility] succinate 3-21 tablet by ity o f XL 100 mg 00:00: mouth [place] 24 hr 00 daily. Medical tablet Branch metoprolol 2020-0 Yes [id number] 100mg Take 1 [facility] succinate 3-21 tablet by ity o f XL 100 mg 00:00: mouth [place] 24 hr 00 daily. Medical tablet Branch metoprolol 2020-0 Yes [id number] 100mg Take 1 [facility] succinate 3-21 tablet by ity o f XL 100 mg 00:00: mouth [place] 24 hr 00 daily. Medical tablet Branch metoprolol 2020-0 Yes [id number] 100mg Take 1 [facility] succinate 3-21 tablet by ity o f XL 100 mg 00:00: mouth [place] 24 hr 00 daily. Medical tablet Branch metoprolol 2020-0 Yes [id number] 100mg Take 1 [facility] succinate 3-21 tablet by ity o f XL 100 mg 00:00: mouth [place] 24 hr 00 daily. Medical tablet Branch metoprolol 2020-0 Yes [id number] 100mg Take 1 [facility] succinate 3-21 tablet by ity o f XL 100 mg 00:00: mouth [place] 24 hr 00 daily. Medical tablet Branch metoprolol 2020-0 Yes [id number] 100mg Take 1 [facility] succinate 3-21 tablet by ity o f XL 100 mg 00:00: mouth [place] 24 hr 00 daily. Medical tablet Branch metoprolol 2020-0 Yes [id number] 100mg Take 1 [facility] succinate 3-21 tablet by ity o f XL 100 mg 00:00: mouth [place] 24 hr 00 daily. Medical tablet Branch metoprolol 2020-0 Yes [id number] 100mg Take 1 [facility] succinate 3-21 tablet by ity o f XL 100 mg 00:00: mouth [place] 24 hr 00 daily. Medical tablet Branch metoprolol 2020-0 Yes [id number] 100mg Take 1 [facility] succinate 3-21 tablet by ity o f XL 100 mg 00:00: mouth [place] 24 hr 00 daily. Medical tablet Branch metoprolol 2020-0 Yes [id number] 100mg Take 1 [facility] succinate 3-21 07 tablet by ity o f XL 100 mg 00:00: mouth [place] 24 hr 00 daily. Medical tablet Branch azithromyci 2020-0 Yes [id number] 250mg Take 1 [facility] n 250 mg 3-21 07 tablet by ity of tablet 00:00: mouth [place] 00 daily. Medical Take 250 Branch mg tablet once daily metoprolol 2020-0 Yes [id number] 100mg Take 1 [facility] succinate 3-21 07 tablet by ity o f XL 100 mg 00:00: mouth [place] 24 hr 00 daily. Medical tablet Branch azithromyci 2020-0 Yes [id number] 250mg Take 1 [facility] n 250 mg 3-21 07 tablet by ity of tablet 00:00: mouth [place] 00 daily. Medical Take 250 Branch mg tablet once daily metoprolol 2020-0 2020- No [id number] 100mg Take 1 [facility] succinate 3-21 01-11 tablet by ity of XL 100 mg 00:00: 00:00 mouth [place] 24 hr 00 :00 daily. Medical tablet Branch azithromyci 2020-0 2019- No [id number] 250mg Take 1 [facility] n 250 mg 3-21 08-14 tablet by ity o f tablet 00:00: 00:00 mouth [place] 00 :00 daily. Medical Take 250 Branch mg tablet once daily azithromyci 2019-0 2019- No [id number] 250mg Take 1 Univers n 250 mg 3-21 08-14 tablet by ity o f tablet 00:00: 00:00 mouth [place] 00 :00 daily. Medical Take 250 Branch mg tablet once daily fluconazole 2019-0 2020- No 150mg 150 mg, U nivers (DIFLUCAN) -15 08- Oral, ONCE it y of tablet 150 [...] of tablet 16:51: mouth [place] 31 daily. [facility] aspirin 81 2020-0 Yes 81mg Take 1 Unive rs mg chewable 3-20 tablet by ity of tablet 16:51: mouth [place] 31 daily. [facility] aspirin 81 2020-0 Yes 81mg Take 1 Unive rs mg chewable 3-20 tablet by ity of tablet 16:51: mouth [place] 31 daily. [facility] aspirin 81 2020-0 Yes 81mg Take 1 Unive rs mg chewable 3-20 tablet by ity of tablet 16:51: mouth [place] 31 daily. [facility] aspirin 81 2020-0 Yes 81mg Take 1 Unive rs mg chewable 3-20 tablet by ity of tablet 16:51: mouth [place] 31 daily. [facility] aspirin 81 2020-0 Yes 81mg Take 1 Unive rs mg chewable 3-20 tablet by ity of tablet 16:51: mouth [place] 31 daily. [facility] aspirin 81 2020-0 Yes 81mg Take 1 Unive rs mg chewable 3-20 tablet by ity of tablet 16:51: mouth [place] 31 daily. [facility] aspirin 81 2020-0 Yes 81mg Take 1 Unive rs mg chewable 3-20 tablet by ity of tablet 16:51: mouth [place] 31 daily. [facility] aspirin 81 2020-0 Yes 81mg Take 1 Unive rs mg chewable 3-20 tablet by ity of tablet 16:51: mouth [place] 31 daily. [facility] aspirin 2020-0 2020- No 81mg Take 81 mg Uni vers (ASPIRIN 3-20 -20 by mouth ity of LOW DOSE) 16:51: 00:00 daily. [place] 81 mg EC 31 :00 Medical tablet Branch LORazepam 2019-0 2020- No 1mg 1 mg, Univer s (ATIVAN) 3-15 08- Oral, ity of tablet 1 mg 00:30: 23:58 ONCE, 1 [place] 00 :00 dose, [facility] 08/15/19 at Branch 1930, Routine clopidogreL 2019-0 Yes [id number] 75mg Take 1 Univers (PLAVIX) 75 3-20 tablet by ity of mg tablet 00:00: mouth daily. [facility] insulin NPH 0 Yes [id number] Inject 84 Univers and regular 3-20 units AM, ity of human 70-30 00:00: 84 units [place] (NOVOLIN 00 PM [facility] 70/30 U-100 [place] INSULIN) 100 unit/mL (70-30) injection atorvastati 0 Yes [id number] 80mg Take 1 [facility] n 80 mg 3-20 07 tablet by ity of tablet 00:00: mouth at [place] 00 bedtime. [facility] clopidogreL 0 Yes [id number] 75mg Take 1 [facility] (PLAVIX) 75 3-20 tablet by ity of mg tablet 00:00: mouth [place] daily. [facility] insulin NPH 0 Yes [id number] Inject 84 Univers and regular 3-20 units AM, ity of human 70-30 00:00: 84 units [place] (NOVOLIN 00 PM Medical 70/30 U-100 [place] INSULIN) 100 unit/mL (70-30) injection atorvastati 0 Yes [id number] 80mg Take 1 [facility] n 80 mg 3-20 07 tablet by ity of tablet 00:00: mouth at [place] 00 bedtime. [facility] clopidogreL 2019-0 Yes [id number] 75mg Take 1 Univers (PLAVIX) 75 3-20 tablet by ity of mg tablet 00:00: mouth 00 daily. [facility] insulin NPH 0 Yes [id number] Inject 84 Univers and regular 3-20 units AM, ity of human 70-30 00:00: 84 units [place] (NOVOLIN 00 PM Medical 70/30 U-100 [place] INSULIN) 100 unit/mL (70-30) injection atorvastati 2019-0 Yes [id number] 80mg Take 1 [facility] n 80 mg 3-20 07 tablet by ity of tablet 00:00: mouth at [place] 00 bedtime. Medical Branch clopidogreL 2020-0 Yes [id number] 75mg Take 1 [facility] (PLAVIX) 75 3-20 tablet by ity of mg tablet 00:00: mouth [place] 00 daily. [facility] Branch insulin NPH 2020-0 Yes [id number] Inject 84 Univers and regular 3-20 units AM, ity of human 7030 00:00: 84 units [place] (NOVOLIN 00 PM Medical 70/30 U-100 Branch INSULIN) 100 unit/mL (70-30) injection atorvastati 2020-0 Yes [id number] 80mg Take 1 Univers n 80 mg 3-20 07 tablet by ity of tablet 00:00: mouth at 00 bedtime. [facility] Branch clopidogreL 2020-0 Yes [id number] 75mg Take 1 Univers (PLAVIX) 75 3-20 tablet by ity of mg tablet 00:00: mouth 00 daily. [facility] Branch insulin NPH 2019-0 Yes [id number] Inject 84 Univers and regular 3-20 units AM, ity of human 00:00: 84 units [place] (NOVOLIN 00 PM Medical 70/30 U-100 Branch INSULIN) 100 unit/mL (70-30) injection atorvastati 2020-0 Yes [id number] 80mg Take 1 Univers n 80 mg 3-20 07 tablet by ity of tablet 00:00: mouth at 00 bedtime. [facility] clopidogreL 2020-0 Yes [id number] 75mg Take 1 Univers (PLAVIX) 75 3-20 tablet by ity of mg tablet 00:00: mouth daily. [facility] Branch insulin NPH 2019-0 Yes [id number] Inject 84 Univers and regular 3-20 units AM, ity of human 7030 00:00: 84 units [place] (NOVOLIN 00 PM Medical 70/30 U-100 Branch INSULIN) 100 unit/mL (70-30) injection atorvastati 2020-0 Yes [id number] 80mg Take 1 Univers n 80 mg 3-20 07 tablet by ity of tablet 00:00: mouth at [place] 00 bedtime. [facility] clopidogreL 2020-0 Yes [id number] 75mg Take 1 Univers (PLAVIX) 75 3-20 tablet by ity of mg tablet 00:00: mouth [place] 00 daily. [facility] Branch insulin NPH 2019-0 Yes [id number] Inject 84 Univers and regular 3-20 units AM, [facility] 7030 00:00: 84 units [place] (NOVOLIN 00 PM Medical 70/30 U-100 Branch INSULIN) 100 unit/mL (70-30) injection atorvastati 2020-0 Yes [id number] 80mg Take 1 [facility] 80 mg 3-20 07 tablet by [facility] tablet 00:00: mouth at [place] 00 bedtime. [facility] clopidogreL 2020-0 Yes [id number] 75mg Take 1 [facility] (PLAVIX) 75 3-20 tablet by [facility] of mg tablet 00:00: mouth [place] 00 daily. [facility] insulin NPH 2019-0 Yes [id number] Inject 84 [facility] and regular 3-20 units AM, [facility] 00:00: 84 units [place] (NOVOLIN 00 PM Medical 70/30 U-100 Branch INSULIN) 100 unit/mL (70-30) injection atorvastati 2019-0 Yes [id number] 80mg Take 1 [facility] n 80 mg 3-20 07 tablet by [facility] tablet 00:00: mouth at [place] 00 bedtime. [facility] clopidogreL 2020-0 Yes [id number] 75mg Take 1 [facility] (PLAVIX) 75 3-20 tablet by [facility] mg tablet 00:00: mouth 00 daily. [facility] insulin NPH 2019-0 Yes [id number] Inject 84 [facility] and regular 3-20 units AM, [facility] 30 00:00: 84 units [place] (NOVOLIN 00 PM Medical 70/30 U-100 Branch INSULIN) 100 unit/mL (70-30) injection atorvastati 2019-0 Yes [id number] 80mg Take 1 [facility] n 80 mg 3-20 07 tablet by [facility] tablet 00:00: mouth at [place] 00 bedtime. [facility] clopidogreL 2020-0 Yes [id number] 75mg Take 1 [facility] (PLAVIX) 75 3-20 tablet by [facility] mg tablet 00:00: mouth [place] 00 daily. [facility] insulin NPH 2019-0 Yes [id number] Inject 84 [facility] and regular 3-20 units AM, [facility] 70-30 00:00: 84 units [place] (NOVOLIN 00 PM Medical 70/30 U-100 Branch INSULIN) 100 unit/mL (70-30) injection atorvastati 2020-0 Yes [id number] 80mg Take 1 [facility] n 80 mg 3-20 07 tablet by [facility] tablet 00:00: mouth at [place] 00 bedtime. [facility] clopidogreL 2020-0 Yes [id number] 75mg Take 1 [facility] (PLAVIX) 75 3-20 tablet by [facility] mg tablet 00:00: mouth [place] 00 daily. [facility] insulin NPH 2020-0 Yes [id number] Inject 84 [facility] and regular 3-20 units AM, [facility] 7030 00:00: 84 units [place] (NOVOLIN 00 PM Medical 70/30 U-100 Branch INSULIN) 100 unit/mL (70-30) injection atorvastati 2020-0 Yes [id number] 80mg Take 1 [facility] n 80 mg 3-20 07 tablet by [facility] tablet 00:00: mouth at 00 bedtime. [facility] clopidogreL 2020-0 Yes [id number] 75mg Take 1 [facility] (PLAVIX) 75 3-20 tablet by [facility] of mg tablet 00:00: mouth 00 daily. [facility] insulin NPH 2019-0 Yes [id number] Inject 84 [facility] and regular 3-20 units AM, [facility] 7030 00:00: 84 units [place] (NOVOLIN 00 PM Medical 70/30 U-100 Branch INSULIN) 100 unit/mL (70-30) injection atorvastati 2020-0 Yes [id number] 80mg Take 1 [facility] n 80 mg 3-20 07 tablet by [facility] of tablet 00:00: mouth at 00 bedtime. [facility] clopidogreL 2020-0 Yes [id number] 75mg Take 1 [facility] (PLAVIX) 75 3-20 tablet by ity of mg tablet 00:00: mouth daily. [facility] insulin NPH 2020-0 Yes [id number] Inject 84 [facility] and regular 3-20 units AM, [facility] human 7030 00:00: 84 units [place] (NOVOLIN 00 PM Medical 70/30 U-100 Branch INSULIN) 100 unit/mL (70-30) injection atorvastati 2020-0 Yes [id number] 80mg Take 1 [facility] n 80 mg 3-20 07 tablet by ity of tablet 00:00: mouth at 00 bedtime. [facility] clopidogreL 2020-0 Yes [id number] 75mg Take 1 [facility] (PLAVIX) 75 3-20 tablet by ity of mg tablet 00:00: mouth 00 daily. [facility] insulin NPH 2020-0 Yes [id number] Inject 84 [facility] and regular 3-20 units AM, [facility] human 70-30 00:00: 84 units [place] (NOVOLIN 00 PM Medical 70/30 U-100 Branch INSULIN) 100 unit/mL (70-30) injection atorvastati 2020-0 Yes [id number] 80mg Take 1 [facility] n 80 mg 3-20 07 tablet by [facility] of tablet 00:00: mouth at [place] 00 bedtime. [facility] clopidogreL 2020-0 Yes [id number] 75mg Take 1 [facility] (PLAVIX) 75 3-20 tablet by ity of mg tablet 00:00: mouth [place] 00 daily. [facility] insulin NPH 2019-0 Yes [id number] Inject 84 [facility] and regular 3-20 units AM, [facility] 7030 00:00: 84 units [place] (NOVOLIN 00 PM Medical 70/30 U-100 Branch INSULIN) 100 unit/mL (70-30) injection atorvastati 2019-0 Yes [id number] 80mg Take 1 [facility] n 80 mg 3-20 tablet by [facility]y of tablet 00:00: mouth at [place] 00 bedtime. [facility] clopidogreL 2020-0 Yes [id number] 75mg Take 1 [facility] (PLAVIX) 75 3-20 tablet by ity of mg tablet 00:00: mouth 00 daily. [facility] insulin NPH 2019-0 Yes [id number] Inject 84 [facility] and regular 3-20 units AM, [facility] human 70-30 00:00: 84 units [place] (NOVOLIN 00 PM Medical 70/30 U-100 Branch INSULIN) 100 unit/mL (70-30) injection atorvastati 2020-0 Yes [id number] 80mg Take 1 [facility] n 80 mg 3-20 tablet by ity of tablet 00:00: mouth at [place] 00 bedtime. [facility] clopidogreL 2020-0 Yes [id number] 75mg Take 1 [facility] (PLAVIX) 75 3-20 tablet by ity of mg tablet 00:00: mouth [place] 00 daily. [facility] insulin NPH 2019-0 Yes [id number] Inject 84 [facility] and regular 3-20 units AM, [facility] human 7030 00:00: 84 units [place] (NOVOLIN 00 PM Medical 70/30 U-100 Branch INSULIN) 100 unit/mL (70-30) injection atorvastati 2020-0 Yes [id number] 80mg Take 1 [facility] n 80 mg 3-20 tablet by ity of tablet 00:00: mouth at [place] 00 bedtime. [facility] clopidogreL 2020-0 Yes [id number] 75mg Take 1 [facility] (PLAVIX) 75 3-20 tablet by ity of mg tablet 00:00: mouth [place] 00 daily. [facility] insulin NPH 2020-0 Yes [id number] Inject 84 [facility] and regular 3-20 units AM, [facility] 7030 00:00: 84 units [place] (NOVOLIN 00 PM Medical 70/30 U-100 Branch INSULIN) 100 unit/mL (70-30) injection atorvastati 2020-0 Yes [id number] 80mg Take 1 [facility] n 80 mg 3-20 tablet by ity of tablet 00:00: mouth at [place] 00 bedtime. [facility] clopidogreL 2020-0 Yes [id number] 75mg Take 1 [facility] (PLAVIX) 75 3-20 tablet by ity of mg tablet 00:00: mouth 00 daily. [facility] insulin NPH 2019-0 Yes [id number] Inject 84 [facility] and regular 3-20 units AM, [facility] human 7030 00:00: 84 units [place] (NOVOLIN 00 PM Medical 70/30 U-100 Branch INSULIN) 100 unit/mL (70-30) injection atorvastati 2019-0 Yes [id number] 80mg Take 1 [facility] n 80 mg 3-20 tablet by it[facility] of tablet 00:00: mouth at [place] 00 bedtime. [facility] clopidogreL 2020-0 Yes [id number] 75mg Take 1 [facility] (PLAVIX) 75 3-20 tablet by ity of mg tablet 00:00: mouth daily. [facility] insulin NPH 2020-0 Yes [id number] Inject 84 [facility] and regular 3-20 units AM, [facility] human 70-30 00:00: 84 units [place] (NOVOLIN 00 PM Medical 70/30 U-100 Branch INSULIN) 100 unit/mL (70-30) injection atorvastati 2020-0 Yes [id number] 80mg Take 1 [facility] n 80 mg 3-20 tablet by it[facility] of tablet 00:00: mouth at [place] 00 bedtime. [facility] clopidogreL 2020-0 Yes [id number] 75mg Take 1 [facility] (PLAVIX) 75 3-20 tablet by ity of mg tablet 00:00: mouth [place] 00 daily. [facility] insulin NPH 2020-0 Yes [id number] Inject 84 [facility] and regular 3-20 units AM, [facility] human 7030 00:00: 84 units [place] (NOVOLIN 00 PM Medical 70/30 U-100 Branch INSULIN) 100 unit/mL (70-30) injection atorvastati 2020-0 Yes [id number] 80mg Take 1 [facility] n 80 mg 3-20 tablet by ity of tablet 00:00: mouth at [place] 00 bedtime. [facility] clopidogreL 2020-0 Yes [id number] 75mg Take 1 [facility] (PLAVIX) 75 3-20 tablet by ity of mg tablet 00:00: mouth 00 daily. [facility] insulin NPH 2019-0 Yes [id number] Inject 84 [facility] and regular 3-20 units AM, [facility] human 00:00: 84 units [place] (NOVOLIN 00 PM Medical 70/30 U-100 Branch INSULIN) 100 unit/mL (70-30) injection atorvastati 2019-0 Yes [id number] 80mg Take 1 [facility] n 80 mg 3-20 tablet by it[facility] of tablet 00:00: mouth at [place] 00 bedtime. [facility] clopidogreL 2020-0 Yes [id number] 75mg Take 1 [facility] (PLAVIX) 75 3-20 tablet by ity of mg tablet 00:00: mouth daily. [facility] insulin NPH 2019-0 Yes [id number] Inject 84 [facility] and regular 3-20 units AM, [facility] human 7030 00:00: 84 units [place] (NOVOLIN 00 PM Medical 70/30 U-100 Branch INSULIN) 100 unit/mL (70-30) injection atorvastati 2019-0 Yes [id number] 80mg Take 1 [facility] n 80 mg 3-20 tablet by ity of tablet 00:00: mouth at [place] 00 bedtime. [facility] clopidogreL 2020-0 Yes [id number] 75mg Take 1 [facility] (PLAVIX) 75 3-20 tablet by ity of mg tablet 00:00: mouth 00 daily. Medical [facility] insulin NPH 2019-0 Yes [id number] Inject 84 [facility] and regular 3-20 units AM, [facility] human 7030 00:00: 84 units [place] (NOVOLIN 00 PM Medical 70/30 U-100 Branch INSULIN) 100 unit/mL (70-30) injection atorvastati 2020-0 Yes [id number] 80mg Take 1 [facility] n 80 mg 3-20 tablet by ity of tablet 00:00: mouth at [place] 00 bedtime. [facility] clopidogreL 2020-0 Yes [id number] 75mg Take 1 [facility] (PLAVIX) 75 3-20 tablet by ity of mg tablet 00:00: mouth [place] 00 daily. [facility] Branch insulin NPH 2020-0 Yes [id number] Inject 84 [facility] and regular 3-20 units AM, [facility] of human 70-30 00:00: 84 units [place] (NOVOLIN 00 PM Medical 70/30 U-100 Branch INSULIN) 100 unit/mL (70-30) injection atorvastati 2020-0 Yes [id number] 80mg Take 1 [facility] n 80 mg 3-20 tablet by ity of tablet 00:00: mouth at [place] 00 bedtime. [facility] clopidogreL 2020-0 Yes [id number] 75mg Take 1 [facility] (PLAVIX) 75 3-20 tablet by ity of mg tablet 00:00: mouth 00 daily. [facility] Branch insulin NPH 2020-0 Yes [id number] Inject 84 [facility] and regular 3-20 units AM, [facility] human 7030 00:00: 84 units [place] (NOVOLIN 00 PM Medical 70/30 U-100 Branch INSULIN) 100 unit/mL (70-30) injection atorvastati 2020-0 Yes [id number] 80mg Take 1 [facility] n 80 mg 3-20 tablet by ity of tablet 00:00: mouth at [place] 00 bedtime. [facility] clopidogreL 2020-0 Yes [id number] 75mg Take 1 [facility] (PLAVIX) 75 3-20 tablet by ity of mg tablet 00:00: mouth 00 daily. [facility] Branch insulin NPH 2020-0 Yes [id number] Inject 84 [facility] and regular 3-20 units AM, [facility]y of human 70-30 00:00: 84 units [place] (NOVOLIN 00 PM Medical 70/30 U-100 Branch INSULIN) 100 unit/mL (70-30) injection atorvastati 2020-0 Yes [id number] 80mg Take 1 [facility] n 80 mg 3-20 tablet by ity of tablet 00:00: mouth at [place] 00 bedtime. [facility] clopidogreL 2020-0 Yes [id number] 75mg Take 1 [facility] (PLAVIX) 75 3-20 tablet by ity of mg tablet 00:00: mouth [place] 00 daily. [facility] insulin NPH 2020-0 Yes [id number] Inject 84 [facility] and regular 3-20 units AM, [facility] of human 7030 00:00: 84 units [place] (NOVOLIN 00 PM Medical 70/30 U-100 Branch INSULIN) 100 unit/mL (70-30) injection atorvastati 2020-0 Yes [id number] 80mg Take 1 [facility] n 80 mg 3-20 tablet by ity of tablet 00:00: mouth at [place] 00 bedtime. [facility] clopidogreL 2020-0 Yes [id number] 75mg Take 1 [facility] (PLAVIX) 75 3-20 tablet by ity of mg tablet 00:00: mouth 00 daily. [facility] Branch insulin NPH 2019-0 Yes [id number] Inject 84 [facility] and regular 3-20 units AM, [facility]y of human 00:00: 84 units [place] (NOVOLIN 00 PM Medical 70/30 U-100 Branch INSULIN) 100 unit/mL (70-30) injection atorvastati 2019-0 Yes [id number] 80mg Take 1 [facility] n 80 mg 3-20 tablet by ity of tablet 00:00: mouth at [place] 00 bedtime. [facility] clopidogreL 2020-0 Yes [id number] 75mg Take 1 [facility] (PLAVIX) 75 3-20 tablet by ity of mg tablet 00:00: mouth daily. [facility] insulin NPH 2019-0 Yes [id number] Inject 84 [facility] and regular 3-20 units AM, [facility] of human 7030 00:00: 84 units [place] (NOVOLIN 00 PM Medical 70/30 U-100 Branch INSULIN) 100 unit/mL (70-30) injection atorvastati 2019-0 Yes [id number] 80mg Take 1 [facility] n 80 mg 3-20 tablet by ity of tablet 00:00: mouth at [place] 00 bedtime. [facility] clopidogreL 2020-0 Yes [id number] 75mg Take 1 [facility] (PLAVIX) 75 3-20 tablet by ity of mg tablet 00:00: mouth daily. [facility] insulin NPH 2019-0 Yes [id number] Inject 84 [facility] and regular 3-20 units AM, [facility] of human 7030 00:00: 84 units [place] (NOVOLIN 00 PM Medical 70/30 U-100 Branch INSULIN) 100 unit/mL (70-30) injection atorvastati 2020-0 Yes [id number] 80mg Take 1 [facility] n 80 mg 3-20 tablet by ity of tablet 00:00: mouth at [place] 00 bedtime. [facility] clopidogreL 2020-0 Yes [id number] 75mg Take 1 [facility] (PLAVIX) 75 3-20 tablet by ity of mg tablet 00:00: mouth [place] 00 daily. [facility] insulin NPH 2019-0 Yes [id number] Inject 84 [facility] and regular 3-20 units AM, [facility] of human 7030 00:00: 84 units [place] (NOVOLIN 00 PM Medical 70/30 U-100 Branch INSULIN) 100 unit/mL (70-30) injection atorvastati 2020-0 Yes [id number] 80mg Take 1 [facility] n 80 mg 3-20 tablet by ity of tablet 00:00: mouth at [place] 00 bedtime. [facility] clopidogreL 2019-0 Yes [id number] 75mg Take 1 [facility] (PLAVIX) 75 3-20 tablet by ity of mg tablet 00:00: mouth 00 daily. [facility] insulin NPH 2019-0 Yes [id number] Inject 84 [facility] and regular 3-20 units AM, [facility] of human 7030 00:00: 84 units [place] (NOVOLIN 00 PM Medical 70/30 U-100 Branch INSULIN) 100 unit/mL (70-30) injection atorvastati 2019-0 Yes [id number] 80mg Take 1 [facility] n 80 mg 3-20 tablet by ity of tablet 00:00: mouth at [place] 00 bedtime. [facility] clopidogreL 2020-0 Yes [id number] 75mg Take 1 [facility] (PLAVIX) 75 3-20 tablet by ity of mg tablet 00:00: mouth 00 daily. [facility] insulin NPH 2019-0 Yes [id number] Inject 84 [facility] and regular 3-20 units AM, ity of human 70-30 00:00: 84 units [place] (NOVOLIN 00 PM Medical 70/30 U-100 Branch INSULIN) 100 unit/mL (70-30) injection atorvastati 2020-0 Yes [id number] 80mg Take 1 [facility] n 80 mg 3-20 tablet by ity of tablet 00:00: mouth at [place] 00 bedtime. [facility] clopidogreL 2020-0 Yes [id number] 75mg Take 1 [facility] (PLAVIX) 75 3-20 tablet by ity of mg tablet 00:00: mouth [place] 00 daily. [facility] insulin NPH 2019-0 Yes [id number] Inject 84 [facility] and regular 3-20 units AM, ity of human 70-30 00:00: 84 units [place] (NOVOLIN 00 PM Medical 70/30 U-100 Branch INSULIN) 100 unit/mL (70-30) injection atorvastati 2020-0 Yes [id number] 80mg Take 1 [facility] n 80 mg 3-20 tablet by ity of tablet 00:00: mouth at [place] 00 bedtime. [facility] clopidogreL 2020-0 Yes [id number] 75mg Take 1 [facility] (PLAVIX) 75 3-20 tablet by ity of mg tablet 00:00: mouth 00 daily. [facility] insulin NPH 2020-0 Yes [id number] Inject 84 [facility] and regular 3-20 units AM, [facility]y of human 7030 00:00: 84 units [place] (NOVOLIN 00 PM Medical 70/30 U-100 Branch INSULIN) 100 unit/mL (70-30) injection atorvastati 2019-0 Yes [id number] 80mg Take 1 [facility] n 80 mg 3-20 tablet by ity of tablet 00:00: mouth at [place] 00 bedtime. [facility] clopidogreL 2020-0 Yes [id number] 75mg Take 1 [facility] (PLAVIX) 75 3-20 tablet by ity of mg tablet 00:00: mouth daily. [facility] Branch insulin NPH 2019-0 Yes [id number] Inject 84 [facility] and regular 3-20 units AM, ity of human 70-30 00:00: 84 units [place] (NOVOLIN 00 PM Medical 70/30 U-100 Branch INSULIN) 100 unit/mL (70-30) injection atorvastati 2020-0 Yes [id number] 80mg Take 1 [facility] n 80 mg 3-20 tablet by ity of tablet 00:00: mouth at [place] 00 bedtime. [facility] clopidogreL 2020-0 Yes [id number] 75mg Take 1 [facility] (PLAVIX) 75 3-20 tablet by ity of mg tablet 00:00: mouth 00 daily. [facility] Branch insulin NPH 2020-0 Yes [id number] Inject 84 [facility] and regular 3-20 units AM, ity of human 70-30 00:00: 84 units [place] (NOVOLIN 00 PM Medical 70/30 U-100 Branch INSULIN) 100 unit/mL (70-30) injection atorvastati 2020-0 Yes [id number] 80mg Take 1 [facility] n 80 mg 3-20 tablet by ity of tablet 00:00: mouth at [place] 00 bedtime. [facility] clopidogreL 2020-0 Yes [id number] 75mg Take 1 [facility] (PLAVIX) 75 3-20 tablet by ity of mg tablet 00:00: mouth [place] 00 daily. [facility] insulin NPH 2020-0 Yes [id number] Inject 84 [facility] and regular 3-20 units AM, ity of human 70-30 00:00: 84 units [place] (NOVOLIN 00 PM Medical 70/30 U-100 Branch INSULIN) 100 unit/mL (70-30) injection atorvastati 2020-0 Yes [id number] 80mg Take 1 [facility] n 80 mg 3-20 tablet by ity of tablet 00:00: mouth at [place] 00 bedtime. [facility] clopidogreL 2020-0 Yes [id number] 75mg Take 1 [facility] (PLAVIX) 75 3-20 tablet by ity of mg tablet 00:00: mouth 00 daily. [facility] Branch insulin NPH 2019-0 Yes [id number] Inject 84 [facility] and regular 3-20 units AM, [facility]y of human 7030 00:00: 84 units [place] (NOVOLIN 00 PM Medical 70/30 U-100 Branch INSULIN) 100 unit/mL (70-30) injection atorvastati 2020-0 Yes [id number] 80mg Take 1 [facility] n 80 mg 3-20 tablet by ity of tablet 00:00: mouth at 00 bedtime. [facility] clopidogreL 2020-0 Yes [id number] 75mg Take 1 [facility] (PLAVIX) 75 3-20 tablet by ity of mg tablet 00:00: mouth daily. [facility] Branch insulin NPH 2019-0 Yes [id number] Inject 84 [facility] and regular 3-20 units AM, [facility]y of human 7030 00:00: 84 units [place] (NOVOLIN 00 PM Medical 70/30 U-100 Branch INSULIN) 100 unit/mL (70-30) injection atorvastati 2020-0 Yes [id number] 80mg Take 1 [facility] n 80 mg 3-20 tablet by ity of tablet 00:00: mouth at [place] 00 bedtime. [facility] clopidogreL 2020-0 Yes [id number] 75mg Take 1 [facility] (PLAVIX) 75 3-20 tablet by ity of mg tablet 00:00: mouth [place] 00 daily. [facility] insulin NPH 2019-0 Yes [id number] Inject 84 [facility] and regular 3-20 units AM, ity of human 70-30 00:00: 84 units [place] (NOVOLIN 00 PM Medical 70/30 U-100 Branch INSULIN) 100 unit/mL (70-30) injection atorvastati 2020-0 Yes [id number] 80mg Take 1 [facility] n 80 mg 3-20 tablet by ity of tablet 00:00: mouth at [place] 00 bedtime. [facility] clopidogreL 2020-0 Yes [id number] 75mg Take 1 [facility] (PLAVIX) 75 3-20 tablet by ity of mg tablet 00:00: mouth [place] 00 daily. [facility] insulin NPH 2020-0 Yes [id number] Inject 84 [facility] and regular 3-20 units AM, ity of human 70-30 00:00: 84 units [place] (NOVOLIN 00 PM Medical 70/30 U-100 Branch INSULIN) 100 unit/mL (70-30) injection atorvastati 2019-0 Yes [id number] 80mg Take 1 [facility] n 80 mg 3-20 tablet by ity of tablet 00:00: mouth at [place] 00 bedtime. [facility] clopidogreL 2020-0 Yes [id number] 75mg Take 1 [facility] (PLAVIX) 75 3-20 tablet by ity of mg tablet 00:00: mouth 00 daily. [facility] insulin NPH 2020-0 Yes [id number] Inject 84 [facility] and regular 3-20 units AM, ity of human 70-30 00:00: 84 units [place] (NOVOLIN 00 PM Medical 70/30 U-100 Branch INSULIN) 100 unit/mL (70-30) injection atorvastati 2020-0 Yes [id number] 80mg Take 1 [facility] n 80 mg 3-20 tablet by ity of tablet 00:00: mouth at [place] 00 bedtime. [facility] clopidogreL 2020-0 Yes [id number] 75mg Take 1 [facility] (PLAVIX) 75 3-20 tablet by ity of mg tablet 00:00: mouth [place] 00 daily. [facility] insulin NPH 2020-0 Yes [id number] Inject 84 [facility] and regular 3-20 units AM, ity of human 70-30 00:00: 84 units [place] (NOVOLIN 00 PM Medical 70/30 U-100 Branch INSULIN) 100 unit/mL (70-30) injection atorvastati 2020-0 Yes [id number] 80mg Take 1 [facility] n 80 mg 3-20 tablet by ity of tablet 00:00: mouth at [place] 00 bedtime. [facility] clopidogreL 2020-0 Yes [id number] 75mg Take 1 [facility] (PLAVIX) 75 3-20 tablet by ity of mg tablet 00:00: mouth [place] 00 daily. [facility] insulin NPH 2020-0 Yes [id number] Inject 84 [facility] and regular 3-20 units AM, [facility]y of human 7030 00:00: 84 units [place] (NOVOLIN 00 PM Medical 70/30 U-100 Branch INSULIN) 100 unit/mL (70-30) injection atorvastati 2020-0 Yes [id number] 80mg Take 1 [facility] n 80 mg 3-20 tablet by ity of tablet 00:00: mouth at [place] 00 bedtime. [facility] clopidogreL 2020-0 Yes [id number] 75mg Take 1 [facility] (PLAVIX) 75 3-20 tablet by ity of mg tablet 00:00: mouth 00 daily. [facility] insulin NPH 2019-0 Yes [id number] Inject 84 [facility] and regular 3-20 units AM, ity of human 7030 00:00: 84 units [place] (NOVOLIN 00 PM Medical 70/30 U-100 Branch INSULIN) 100 unit/mL (70-30) injection atorvastati 2020-0 Yes [id number] 80mg Take 1 [facility] n 80 mg 3-20 tablet by ity of tablet 00:00: mouth at [place] 00 bedtime. [facility] clopidogreL 2020-0 Yes [id number] 75mg Take 1 [facility] (PLAVIX) 75 3-20 tablet by ity of mg tablet 00:00: mouth daily. [facility] insulin NPH 2019-0 Yes [id number] Inject 84 [facility] and regular 3-20 units AM, ity of human 7030 00:00: 84 units [place] (NOVOLIN 00 PM Medical 70/30 U-100 Branch INSULIN) 100 unit/mL (70-30) injection atorvastati 2020-0 Yes [id number] 80mg Take 1 [facility] n 80 mg 3-20 tablet by ity of tablet 00:00: mouth at [place] 00 bedtime. [facility] clopidogreL 2020-0 Yes [id number] 75mg Take 1 [facility] (PLAVIX) 75 3-20 tablet by ity of mg tablet 00:00: mouth [place] 00 daily. [facility] insulin NPH 2020-0 Yes [id number] Inject 84 [facility] and regular 3-20 units AM, ity of human 70-30 00:00: 84 units [place] (NOVOLIN 00 PM Medical 70/30 U-100 Branch INSULIN) 100 unit/mL (70-30) injection atorvastati 2020-0 Yes [id number] 80mg Take 1 [facility] n 80 mg 3-20 tablet by ity of tablet 00:00: mouth at [place] 00 bedtime. [facility] clopidogreL 2020-0 Yes [id number] 75mg Take 1 [facility] (PLAVIX) 75 3-20 tablet by ity of mg tablet 00:00: mouth [place] 00 daily. [facility] insulin NPH 2020-0 Yes [id number] Inject 84 [facility] and regular 3-20 units AM, ity of human 7030 00:00: 84 units [place] (NOVOLIN 00 PM Medical 70/30 U-100 Branch INSULIN) 100 unit/mL (70-30) injection atorvastati 2019-0 Yes [id number] 80mg Take 1 [facility] n 80 mg 3-20 tablet by ity of tablet 00:00: mouth at [place] 00 bedtime. [facility] clopidogreL 2020-0 Yes [id number] 75mg Take 1 [facility] (PLAVIX) 75 3-20 tablet by ity of mg tablet 00:00: mouth 00 daily. [facility] insulin NPH 2020-0 Yes [id number] Inject 84 [facility] and regular 3-20 units AM, ity of human 70-30 00:00: 84 units [place] (NOVOLIN 00 PM Medical 70/30 U-100 Branch INSULIN) 100 unit/mL (70-30) injection atorvastati 2020-0 Yes [id number] 80mg Take 1 [facility] n 80 mg 3-20 tablet by ity of tablet 00:00: mouth at [place] 00 bedtime. [facility] clopidogreL 2020-0 Yes [id number] 75mg Take 1 [facility] (PLAVIX) 75 3-20 tablet by ity of mg tablet 00:00: mouth [place] 00 daily. [facility] insulin NPH 2020-0 Yes [id number] Inject 84 [facility] and regular 3-20 units AM, ity of human 70-30 00:00: 84 units [place] (NOVOLIN 00 PM Medical 70/30 U-100 Branch INSULIN) 100 unit/mL (70-30) injection atorvastati 2020-0 Yes [id number] 80mg Take 1 [facility] n 80 mg 3-20 tablet by ity of tablet 00:00: mouth at [place] 00 bedtime. [facility] clopidogreL 2020-0 Yes [id number] 75mg Take 1 [facility] (PLAVIX) 75 3-20 tablet by ity of mg tablet 00:00: mouth [place] 00 daily. [facility] insulin NPH 2020-0 Yes [id number] Inject 84 [facility] and regular 3-20 units AM, ity of human 70-30 00:00: 84 units [place] (NOVOLIN 00 PM Medical 70/30 U-100 Branch INSULIN) 100 unit/mL (70-30) injection atorvastati 2020-0 Yes [id number] 80mg Take 1 [facility] n 80 mg 3-20 tablet by ity of tablet 00:00: mouth at [place] 00 bedtime. [facility] clopidogreL 2020-0 Yes [id number] 75mg Take 1 [facility] (PLAVIX) 75 3-20 tablet by ity of mg tablet 00:00: mouth [place] 00 daily. [facility] atorvastati 2020-0 Yes [id number] 80mg Take 1 [facility] n 80 mg 3-20 tablet by ity of tablet 00:00: mouth at [place] 00 bedtime. [facility] clopidogreL 2020-0 Yes [id number] 75mg Take 1 [facility] (PLAVIX) 75 3-20 tablet by ity of mg tablet 00:00: mouth [place] 00 daily. [facility] atorvastati 2020-0 Yes [id number] 80mg Take 1 [facility] n 80 mg 3-20 tablet by ity of tablet 00:00: mouth at [place] bedtime. [facility] clopidogreL 2020-0 Yes [id number] 75mg Take 1 [facility] (PLAVIX) 75 3-20 tablet by ity of mg tablet 00:00: mouth [place] 00 daily. [facility] atorvastati 2020-0 Yes [id number] 80mg Take 1 [facility] n 80 mg 3-20 tablet by ity of tablet 00:00: mouth at [place] 00 bedtime. [facility] clopidogreL 2020-0 Yes [id number] 75mg Take 1 [facility] (PLAVIX) 75 3-20 tablet by ity of mg tablet 00:00: mouth [place] 00 daily. [facility] atorvastati 2020-0 Yes [id number] 80mg Take 1 [facility] n 80 mg 3-20 tablet by ity of tablet 00:00: mouth at [place] 00 bedtime. Medical Branch clopidogreL 2020-0 Yes [id number] 75mg Take 1 [facility] (PLAVIX) 75 3-20 tablet by ity of mg tablet 00:00: mouth [place] 00 daily. [facility] atorvastati 2020-0 Yes [id number] 80mg Take 1 [facility] n 80 mg 3-20 tablet by ity of tablet 00:00: mouth at [place] 00 bedtime. [facility] clopidogreL 2020-0 Yes [id number] 75mg Take 1 [facility] (PLAVIX) 75 3-20 tablet by ity of mg tablet 00:00: mouth [place] 00 daily. [facility] clopidogreL 2020-0 Yes [id number] 75mg Take 1 [facility] (PLAVIX) 75 3-20 tablet by ity of mg tablet 00:00: mouth [place] 00 daily. [facility] clopidogreL 2020-0 Yes [id number] 75mg Take 1 [facility] (PLAVIX) 75 3-20 tablet by ity of mg tablet 00:00: mouth [place] 00 daily. [facility] clopidogreL 2020-0 Yes [id number] 75mg Take 1 [facility] (PLAVIX) 75 3-20 tablet by ity of mg tablet 00:00: mouth [place] 00 daily. [facility] clopidogreL 2020-0 Yes [id number] 75mg Take 1 [facility] (PLAVIX) 75 3-20 tablet by ity of mg tablet 00:00: mouth [place] 00 daily. [facility] clopidogreL 2020-0 Yes [id number] 75mg Take 1 [facility] (PLAVIX) 75 3-20 tablet by ity of mg tablet 00:00: mouth [place] 00 daily. [facility] clopidogreL 2020-0 Yes [id number] 75mg Take 1 [facility] (PLAVIX) 75 3-20 tablet by ity of mg tablet 00:00: mouth [place] 00 daily. [facility] clopidogreL 2020-0 Yes [id number] 75mg Take 1 [facility] (PLAVIX) 75 3-20 tablet by ity of mg tablet 00:00: mouth [place] 00 daily. [facility] clopidogreL 2020-0 Yes [id number] 75mg Take 1 [facility] (PLAVIX) 75 3-20 tablet by ity of mg tablet 00:00: mouth [place] 00 daily. [facility] clopidogreL 2020-0 Yes [id number] 75mg Take 1 [facility] (PLAVIX) 75 3-20 tablet by ity of mg tablet 00:00: mouth [place] 00 daily. [facility] clopidogreL 2020-0 Yes [id number] 75mg Take 1 [facility] (PLAVIX) 75 3-20 tablet by ity of mg tablet 00:00: mouth [place] 00 daily. [facility] clopidogreL 2020-0 Yes [id number] 75mg Take 1 [facility] (PLAVIX) 75 3-20 tablet by ity of mg tablet 00:00: mouth [place] 00 daily. [facility] clopidogreL 2020-0 Yes [id number] 75mg Take 1 [facility] (PLAVIX) 75 3-20 tablet by ity of mg tablet 00:00: mouth [place] 00 daily. Medical Branch insulin NPH 2019-0 Yes [id number] Inject 84 [facility] and regular 3-20 units AM, ity of human 70-30 00:00: 84 units [place] (NOVOLIN 00 PM Medical 70/30 U-100 Branch INSULIN) 100 unit/mL (70-30) injection atorvastati 2019- Yes [id number] 80mg Take 1 [facility] n 80 mg 3-20 07 tablet by ity of tablet 00:00: mouth at [place] 00 bedtime. Medical Branch clopidogreL Yes [id number] 75mg Take 1 [facility] (PLAVIX) 75 3-20 tablet by ity of mg tablet 00:00: mouth [place] 00 daily. Medical Branch insulin NPH Yes [id number] Inject 84 [facility] and regular 3-20 units AM, ity of human 70-30 00:00: 84 units [place] (NOVOLIN 00 PM Medical 70/30 U-100 Branch INSULIN) 100 unit/mL (70-30) injection atorvastati Yes [id number] 80mg Take 1 [facility] n 80 mg [...] 00 stent daily. Medical placement Branch clopidogreL 0 2020- No [id number] 75mg Take 1 [facility] (PLAVIX) 75 3-20 07-06 tablet by it y of mg tablet 00:00: 00:00 mouth [place] 00 :00 daily. Medical Branch atorvastati 2020- No [id number] 80mg Take 1 [facility] n 80 mg 3-20 05-06 tablet by ity of tablet 00:00: 00:00 mouth at [place] 00 :00 bedtime. Medical Branch atorvastati 2020- No [id number] 80mg Take 1 [facility] n 80 mg 3-20 05-06 tablet by ity of tablet 00:00: 00:00 mouth at [place] 00 :00 bedtime. Medical Branch atorvastati 2020- No Coronary 80mg Take 1 [facility] n 80 mg 3-20 05-06 artery tablet by ity of tablet 00:00: 00:00 disease mouth at [place] 00 :00 involving bedtime. 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 insulin NPH 2020- No [id number] Inject 84 Univers and regular 3-20 04-12 [...] ity of mg 18:45: 17:57 ONCE, 1 [place] 00 :00 dose, [facility] 08/15/19 at Branch 1345, Routine insulin 2019- Yes 34U 34 Units, Unive rs glargine 3-19 Subcutaneo ity o f (LANTUS 17:00: us, [...] at 1200, Until Discontinu ed, Routine Sliding 2020- Yes Subcutaneo Univ ers Scale 3-19 us, Q3H, ity of Insulin - 16:45: First dose [place] Aspart 00 on [facility] (NOVOLOG) + 08/15/19 at [facility] 1145, Testing Until Discontinu ed, Routine heparin 2020- No Slow IV Univer s 1,000 08-14 [...] Until [facility] 08/15/19 at 1040, Routine heparin 2020- No Slow IV Univer s 1,000 08-14 [...] Until [place] 08/15/19 at 0906, Routine midazolam 2020-0 2020- No IV Push, Uni vers (VERSED) 08-14 TITRATE - ity o f injection 14:05: 14:05 FOR [place] 50 :50 PROCEDURE Medical USE, 1 Branch dose, Starting [facility] 08/15/19 at 0905, Until Seme 08/15/19 at 0905, Routine azithromyci 2020-0 2020- No 250mg 250 mg, U nivers n 08-14 Oral, ity of (ZITHROMAX) 14:00: 13:59 DAILY, 4 [place] tablet 250 00 :00 doses, Medical mg First dose Branch on [facility] 08/15/19 at 0900, Last dose on [place] 08/18/19 at 0900, TRANG
Re ason for Anti-Infec tive: Empiric Therapy for Suspected Infection< br>Empiric Therapy Site: Respirator y
Durat ion of therapy: 72 hours magnesium 2020-0 2020- No 4g 4 g, IV Univ ers sulfate in 08-14 Piggyback, it y of water 4 12:45: 01:35 ONCE, 1 [place] gram/50 mL 00 :00 dose, [facility] Medi blanquita (8 %) IV 08/15/19 at [facility] h Piggyback 4 0745, g Routine ipratropium 2019-0 Yes 3mL 3 mL, Unive rs -albuterol 08-14 Inhalation ity of (DUONEB) 10:24: , QID, [place] 0.5 mg-3 00 First dose Medic al mg(2.5 mg on [facility] Branch base)/3 mL 08/15/19 at nebulizer 0530, solution 3 Until mL Discontinu ed, Routine Sliding 2020-0 2020- No Subcutaneo Uni vers Scale 08-14 [...] o f human 03:33: 03:38 us, ONCE, [place] (HUMULIN R) 00 :00 1 dose, Medic al injection Wed Branch 10 Units 08/14/19 at 2245, Routine insulin 2020-0 2020- No 8U 8 Units, Unive rs regular 08-13 Slow IV ity of human 22:00: 21:23 Push, [place] (HUMULIN R) 00 :00 ONCE, 1 Medic al injection 8 dose, Mon Bra nch Units 08/14/19 at 1700, Routine sulfur 2020-0 2020- No 5mL 5 mL, Univers hexafluorid 08-13 Intravenou i ty of e microsphr 17:15: 14:00 s, ONCE, 1 [place] (LUMASON) 00 :00 dose, Mon Medic al [...] 08-13 Oral, ity of mg 14:00: DAILY, [place] 00 First dose Medical on Mon Branch [...] y of (DUONEB) 13:00: 10:24 , QID, [place] 0.5 mg-3 00 :42 First dose Medic al mg(2.5 mg on Mon base)/3 mL 08/14/19 at nebulizer 0800, solution 3 Until mL Discontinu ed, Routine Sliding 2019- No Subcutaneo Uni vers Scale 08-13 , TID ity of Insulin - 13:00: 16:52 MEALS+HS, [place] Aspart 00 :44 First dose Medical (NOVOLOG) + on Mon Branch Fsbg 08/14/19 at Testing 0800, Until Discontinu ed, Routine insulin 2019- No .25U/kg 7 Units Uni vers aspart 08-13d (rounded ity of RAPID 12:30: 06:45 from 6.725 [place] (NOVOLOG) 00 :18 Units = Medical injection 7 0.25 Branch Units Units/kg/d ay ?80.7 kg), Subcutaneo us, TIDAC, First dose on Mon08/14/19 at 0730, Until Discontinu ed, Routine magnesium 2019- No 4g 4 g, IV Univ ers sulfate in 08-13 Piggyback, it y of water 4 12:15: 14:00 ONCE, 1 [place] gram/50 mL 00 :00 dose, [facility] Medi blanquita (8 %) IV 08/14/19 at [facility] h Piggyback 4 0715, g Routine dextrose 2019-0 Yes 250mL 250 mL, IV Un cali 10% (D10W) 18 Infusion, ity of bolus 12:06: PRN - SEE [place] infusion 49 INSTRUCTIO Medic al 250 mL NS, AMS Branch and BG <70, Starting [facility] 08/14/19 at 0706
De xtrose 10% [...] KIT) 55 Starting Medical injection 1 Mon [place] mg 08/14/19 at 0705, Until Discontinu ed, TRANG, Blood Glucose < or = 70 mg/dL and patient is unable to swallow or has mental changes. morpHINE 2019-2019- No 2mg 2 mg, Slow Un cali injection 2 08-1318 IV Push, ity of mg 11:45: 10:43 ONCE, 1 [place] 00 :00 dose, [facility] Medical 08/14/19 at [place] 0645, Routine atorvastati 2019-0 2020- No 40mg 40 mg, Uni vers n (LIPITOR) 08-1320 Oral, QHS, i ty of tablet 40 02:00: 14:33 First dose [place] mg 00 :04 on [facility] 08/13/19 at Branch 2100, Until Discontinu ed, Routine Sliding 2019-0 2020- No Subcutaneo Uni vers Scale 08-1218 us, TID ity of Insulin - 22:00: 12:09 MEALS+HS, [place] Aspart 00 :18 First dose Medical (NOVOLOG) + on [facility] 08/13/19 at Testing 1700, Until Discontinu ed, Routine dextrometho 2019-0 Yes 5mL 5 mL, [facility] rs rphan-guaif 08-12 Oral, ity of enesin 21:03: Q6HPRN, [place] (ROBITUSSIN 48 Starting Medi blanquita DM) 10-100 Tu Branch mg/5 mL 08/13/19 at solution 5 1603, mL Until Discontinu ed, Routine, Cough morpHINE 2019- No 4mg 4 mg, Slow Un cali injection 4 08-12 IV Push, ity of mg 21:00: 20:06 ONCE, 1 [place] 00 :00 dose, [facility] Medical 08/13/19 at Branch 1600, Routine clopidogreL 2019- No 300mg 300 mg, U nivers (PLAVIX) 08-12 Oral, ity of tablet 300 20:30: 21:32 ONCE, 1 [place] mg 00 :00 dose, [facility] 08/13/19 at Branch 1530, Routine NaCl 0.9% 2019- No 500mL at 50 Unive rs (NS) IV 08-12 mL/hr, IV ity of infusion 20:30: 19:41 Infusion, [place] 500 mL 00 :00 ONCE, 1 Medical dose, [facility] 08/13/19 at 1530, Routine
50 cc/hr for 500 mL total
HYDROcodone 2019- No 1{tbl} 1 tablet, Univers -acetaminop 08-12 Oral, ity of hen (NORCO 20:15: 02:39 ONCE, 1 [place] 5) 5-325 mg 00 :00 dose, [facility] Med ical tablet 1 08/13/19 at [facility] h tablet 1515, Routine FENTanyl PF 2020- No Slow IV Un cali (SUBLIMAZE 08-12 Push, ity of (PF)) 16:26: 16:26 TITRATE - [place] injection 15 :15 FOR Medical PROCEDURE Branch USE, 1 dose, Starting [facility] 08/13/19 at 1126, Until e 08/13/19 at 1126, Routine midazolam 2019- No IV Push, Uni vers (VERSED) 08-12 TITRATE - ity o f injection 16:26: 16:26 FOR [place] 05 :05 PROCEDURE Medical USE, 1 Branch dose, Starting [facility] 08/13/19 at 1126, Until [facility] 08/13/19 at 1126, Routine clopidogreL 2020-0 2020- No 300mg 300 mg, U vinicioers (PLAVIX) 08-12 Oral, ity of tablet 300 15:30: 15:48 ONCE, 1 [place] mg 00 :00 dose, [facility] Medical 08/13/19 at Branch 1030, Routine pantoprazol 2020-0 Yes 40mg 40 mg, Univ ers e 08-12 Oral, ity of (PROTONIX) 14:00: DAILY, [place] EC tablet 00 First dose Medi blanquita [address] [facility] 08/13/19 at 0900, Until Discontinu ed, Routine isosorbide 2020-0 Yes 30mg 30 mg, Unive rs mononitrate 08-12 Oral, ity of (IMDUR) 24 14:00: DAILY, [place] hr tablet 00 First dose Medi blanquita [address] [facility] 08/13/19 at 0900, Until Discontinu ed, Routine furosemide 2020-0 Yes 20mg 20 mg, Unive rs (LASIX) 08-12 Oral, ity of tablet 20 14:00: DAILY, [place] mg 00 First dose Medical on [facility] 08/13/19 at 0900, Until Discontinu ed, Routine insulin NPH 2020-0 2020- No .3U/kg/ 12 Units Univers (HUMULIN N) 08-1218 d (rounded ity of injection 14:00: 12:08 from [place] 12 Units 00 :24 12.195 Medical Units = Branch 0.3 Units/kg/d ay ?81.3 kg), Subcutaneo us, QAM+HS, First dose on [facility] 08/13/19 at 0900, Until Discontinu ed, Routine metoprolol 2020-0 2020- No 25mg 25 mg, Univ ers tartrate 08-12 Oral, ity of (LOPRESSOR) 14:00: 12:10 DAILY, [place] tablet 25 00 :23 First dose Medi blanquita mg on [facility] 08/13/19 at 0900, Until Discontinu ed, Routine aspirin EC 2020-0 2020- No 81mg 81 mg, Univ ers tablet 81 08-12 Oral, ity of mg 14:00: 13:38 DAILY, [place] 00 :12 First dose Medical on [facility] 08/13/19 at 0900, Until Discontinu ed, Routine gabapentin 2020-0 Yes 800mg 800 mg, Uni vers (NEURONTIN) 08-12 Oral, TID, it y of tablet 800 13:00: First dose [place] mg 00 on [facility] 08/13/19 at Branch 0800, Until Discontinu ed, Routine insulin 2020-0 2020- No .3U/kg/ 8 Units Uni vers aspart 08-1218 d (rounded ity of RAPID 13:00: 12:08 from 8.13 [place] (NOVOLOG) 00 :24 Units = Medical injection 8 0.3 Branch Units Units/kg/d ay ?81.3 kg), Subcutaneo us, TID MEALS, First dose on [facility] 08/13/19 at 0800, Until Discontinu ed, Routine heparin 2020-0 2020- No 12U/kg/ 12 Univer s 25,000 08-12 h Units/kg/h ity of units/250mL 10:45: 18:00 r ?81.3 kg [place] in NS 00 :11 (9.756 Medical weight mL/hr, Branch based rounded to dosing ACS 9.76 protocol mL/hr), IV Infusion, CONTINUOUS , Starting [facility] 08/13/19 at 0545, Until [facility] 08/15/19 at 1300 magnesium 2020-0 2020- No 4g 4 g, IV Univ ers sulfate in 08-12 Piggyback, it y of water 4 10:30: 10:53 ONCE, 1 [place] gram/50 mL 00 :00 dose, Mon Medi blanquita (8 %) IV 08/13/19 at [facility] h Piggyback 4 0530, g Routine heparin 2020-0 2020- No 4000U 4,000 Univers 1000 08-12 Units, IV ity of unit/mL 09:45: 12:17 Push, [place] injection 00 :00 ONCE, 1 Medical Soln 4,000 dose, Bran ch Units 08/13/19 at 0500, Routine heparin 2020-0 Yes 3000U FOR Univers (1,000 08-12 REBOLUSING ity of unit/mL, 10 09:43: , Starting [place] mL vial) 08 Tue Medical for 08/13/19 at Branch Rebolusing 0443, Until Discontinu ed, Routine
Dosing based on aPTT testing parameters (refer to continuous heparin drip order).
ondansetron 2020-0 2020- No 4mg 4 mg, Slow Univers (ZOFRAN 08-12 IV Push, ity of (PF)) 08:30: 07:44 ONCE, 1 [place] injection 4 00 :00 dose, [facility] Med ical mg 08/13/19 at Branch 0330, Routine dextrometho 2020-0 2020- No 5mL 5 mL, Univ ers rphan-guaif 08-12 Oral, ity of enesin 07:25: 21:03 Q6HPRN, [place] (ROBITUSSIN 59 :57 Starting Medi blanquita DM) 10-100 [facility] mg/5 mL 08/13/19 at solution 5 0225, mL Until [facility] 08/13/19 at 1603, Routine, Cough morpHINE 2019-0 2020- No 2mg 2 mg, Slow Un cali injection 2 08-12 IV Push, ity of mg 06:08: 13:24 Q6HPRN, 2 [place] 33 :00 doses, Medical Starting Branch 08/13/19 at 0108, Until [facility] 08/13/19 at 0824, Routine, Chest pain aspirin 2020-0 Yes 81mg Take 81 mg Univ ers (ASPIRIN 3-17 by mouth ity of LOW DOSE) 04:49: daily. [place] 81 mg EC 06 Medical tablet Branch aspirin 2020-0 Yes 81mg Take 81 mg Univ ers (ASPIRIN 3-17 by mouth ity of LOW DOSE) 04:49: daily. [place] 81 mg EC 06 Medical tablet Branch nitroglycer 2020-0 Yes .4mg 0.4 mg, Uni vers in 08-12 Sublingual ity of (NITROSTAT) 04:31: , Q5MIN [place] sublingual 28 PRN, Medical tablet 0.4 Starting Branc h mg 08/12/19 at 2331, Until Discontinu ed, Routine, Chest pain aspirin 2020-0 Yes 81mg Take 81 mg Univ ers (ASPIRIN 3-09 by mouth ity of LOW DOSE) 16:06: daily. [place] 81 mg EC 37 Medical tablet Branch [...] 37 Medical tablet Branch isosorbide 2020-0 Yes [id number] 30mg Take 1 Univers mononitrate 3-09 tablet by ity of 30 mg 24 hr 00:00: mouth [place] tablet 00 daily. Medical Branch isosorbide 2020-0 Yes [id number] 30mg Take 1 [facility] mononitrate 3-09 tablet by ity of 30 mg 24 hr 00:00: mouth [place] tablet 00 daily. Medical Branch isosorbide 2020-0 Yes [id number] 30mg Take 1 Univers mononitrate 3-09 tablet by ity of 30 mg 24 hr 00:00: mouth [place] tablet 00 daily. Medical Branch isosorbide 2020-0 Yes [id number] 30mg Take 1 [facility] mononitrate 3-09 tablet by ity of 30 mg 24 hr 00:00: mouth [place] tablet 00 daily. Medical Branch isosorbide 2020-0 Yes [id number] 30mg Take 1 [facility] mononitrate 3-09 tablet by ity of 30 mg 24 hr 00:00: mouth [place] tablet 00 daily. Medical Branch isosorbide 2020-0 Yes [id number] 30mg Take 1 [facility] mononitrate 3-09 tablet by ity of 30 mg 24 hr 00:00: mouth [place] tablet 00 daily. Medical Branch isosorbide 2020-0 Yes [id number] 30mg Take 1 [facility] mononitrate 3-09 tablet by ity of 30 mg 24 hr 00:00: mouth [place] tablet 00 daily. Medical Branch isosorbide 2020-0 Yes [id number] 30mg Take 1 [facility] mononitrate 3-09 tablet by ity of 30 mg 24 hr 00:00: mouth [place] tablet 00 daily. Medical Branch isosorbide 2020-0 Yes [id number] 30mg Take 1 [facility] mononitrate 3-09 tablet by ity of 30 mg 24 hr 00:00: mouth [place] tablet 00 daily. Medical Branch isosorbide 2020-0 Yes [id number] 30mg Take 1 [facility] mononitrate 3-09 tablet by ity of 30 mg 24 hr 00:00: mouth [place] tablet 00 daily. Medical Branch isosorbide 2020-0 Yes [id number] 30mg Take 1 [facility] mononitrate 3-09 tablet by ity of 30 mg 24 hr 00:00: mouth [place] tablet 00 daily. Medical Branch isosorbide 2020-0 Yes [id number] 30mg Take 1 Univers mononitrate 3-09 tablet by ity of 30 mg 24 hr 00:00: mouth [place] tablet 00 daily. Medical Branch isosorbide 2020-0 Yes [id number] 30mg Take 1 [facility] mononitrate 3-09 tablet by ity of 30 mg 24 hr 00:00: mouth [place] tablet 00 daily. Medical Branch isosorbide 2020-0 Yes [id number] 30mg Take 1 [facility] mononitrate 3-09 tablet by ity of 30 mg 24 hr 00:00: mouth [place] tablet 00 daily. Medical Branch isosorbide 2020-0 Yes [id number] 30mg Take 1 [facility] mononitrate 3-09 tablet by ity of 30 mg 24 hr 00:00: mouth [place] tablet 00 daily. Medical Branch isosorbide 2020-0 Yes [id number] 30mg Take 1 [facility] mononitrate 3-09 tablet by ity of 30 mg 24 hr 00:00: mouth [place] tablet 00 daily. Medical Branch isosorbide 2020-0 Yes [id number] 30mg Take 1 [facility] mononitrate 3-09 tablet by ity of 30 mg 24 hr 00:00: mouth [place] tablet 00 daily. Medical Branch isosorbide 2020-0 Yes [id number] 30mg Take 1 Univers mononitrate 3-09 tablet by ity of 30 mg 24 hr 00:00: mouth [place] tablet 00 daily. Medical Branch isosorbide 2020-0 Yes [id number] 30mg Take 1 [facility] mononitrate 3-09 tablet by ity of 30 mg 24 hr 00:00: mouth [place] tablet 00 daily. Medical Branch isosorbide 2020-0 Yes [id number] 30mg Take 1 Univers mononitrate 3-09 tablet by ity of 30 mg 24 hr 00:00: mouth [place] tablet 00 daily. Medical Branch isosorbide 2020-0 Yes [id number] 30mg Take 1 [facility] mononitrate 3-09 tablet by ity of 30 mg 24 hr 00:00: mouth [place] tablet 00 daily. Medical Branch isosorbide 2020-0 Yes [id number] 30mg Take 1 [facility] mononitrate 3-09 tablet by ity of 30 mg 24 hr 00:00: mouth [place] tablet 00 daily. Medical Branch isosorbide 2020-0 Yes [id number] 30mg Take 1 [facility] mononitrate 3-09 tablet by ity of 30 mg 24 hr 00:00: mouth [place] tablet 00 daily. Medical Branch isosorbide 2020-0 Yes [id number] 30mg Take 1 Univers mononitrate 3-09 tablet by ity of 30 mg 24 hr 00:00: mouth [place] tablet 00 daily. Medical Branch isosorbide 2020-0 Yes [id number] 30mg Take 1 [facility] mononitrate 3-09 tablet by ity of 30 mg 24 hr 00:00: mouth [place] tablet 00 daily. Medical Branch isosorbide 2020-0 Yes [id number] 30mg Take 1 Univers mononitrate 3-09 tablet by ity of 30 mg 24 hr 00:00: mouth [place] tablet 00 daily. Medical Branch isosorbide 2020-0 Yes [id number] 30mg Take 1 [facility] mononitrate 3-09 tablet by ity of 30 mg 24 hr 00:00: mouth [place] tablet 00 daily. Medical Branch isosorbide 2020-0 Yes [id number] 30mg Take 1 Univers mononitrate 3-09 tablet by ity of 30 mg 24 hr 00:00: mouth [place] tablet 00 daily. Medical Branch isosorbide 2020-0 Yes [id number] 30mg Take 1 [facility] mononitrate 3-09 tablet by ity of 30 mg 24 hr 00:00: mouth [place] tablet 00 daily. Medical Branch isosorbide 2020-0 Yes [id number] 30mg Take 1 Univers mononitrate 3-09 tablet by ity of 30 mg 24 hr 00:00: mouth [place] tablet 00 daily. Medical Branch isosorbide 2020-0 Yes [id number] 30mg Take 1 Univers mononitrate 3-09 tablet by ity of 30 mg 24 hr 00:00: mouth [place] tablet 00 daily. Medical Branch isosorbide 2020-0 Yes [id number] 30mg Take 1 Univers mononitrate 3-09 tablet by ity of 30 mg 24 hr 00:00: mouth [place] tablet 00 daily. Medical Branch isosorbide 2020-0 Yes [id number] 30mg Take 1 Univers mononitrate 3-09 tablet by ity of 30 mg 24 hr 00:00: mouth [place] tablet 00 daily. Medical Branch isosorbide 2020-0 Yes [id number] 30mg Take 1 Univers mononitrate 3-09 tablet by ity of 30 mg 24 hr 00:00: mouth [place] tablet 00 daily. Medical Branch isosorbide 2020-0 Yes [id number] 30mg Take 1 [facility] mononitrate 3-09 tablet by ity of 30 mg 24 hr 00:00: mouth [place] tablet 00 daily. Medical Branch isosorbide 2020-0 Yes [id number] 30mg Take 1 [facility] mononitrate 3-09 tablet by ity of 30 mg 24 hr 00:00: mouth [place] tablet 00 daily. Medical Branch isosorbide 2020-0 Yes [id number] 30mg Take 1 [facility] mononitrate 3-09 tablet by ity of 30 mg 24 hr 00:00: mouth [place] tablet 00 daily. Medical Branch isosorbide 2020-0 Yes [id number] 30mg Take 1 [facility] mononitrate 3-09 tablet by ity of 30 mg 24 hr 00:00: mouth [place] tablet 00 daily. Medical Branch isosorbide 2020-0 Yes [id number] 30mg Take 1 Univers mononitrate 3-09 tablet by ity of 30 mg 24 hr 00:00: mouth [place] tablet 00 daily. Medical Branch isosorbide 2020-0 Yes [id number] 30mg Take 1 Univers mononitrate 3-09 tablet by ity of 30 mg 24 hr 00:00: mouth [place] tablet 00 daily. Medical Branch isosorbide 2020-0 Yes [id number] 30mg Take 1 Univers mononitrate 3-09 tablet by ity of 30 mg 24 hr 00:00: mouth [place] tablet 00 daily. Medical Branch isosorbide 2020-0 Yes [id number] 30mg Take 1 Univers mononitrate 3-09 tablet by ity of 30 mg 24 hr 00:00: mouth [place] tablet 00 daily. [facility] Branch isosorbide 2020-0 Yes [id number] 30mg Take 1 Univers mononitrate 3-09 tablet by ity of 30 mg 24 hr 00:00: mouth [place] tablet 00 daily. Medical Branch isosorbide 2020-0 Yes [id number] 30mg Take 1 Univers mononitrate 3-09 tablet by ity of 30 mg 24 hr 00:00: mouth [place] tablet 00 daily. [facility] Branch isosorbide 2020-0 Yes [id number] 30mg Take 1 Univers mononitrate 3-09 tablet by ity of 30 mg 24 hr 00:00: mouth [place] tablet 00 daily. [facility] Branch isosorbide 2020-0 Yes [id number] 30mg Take 1 Univers mononitrate 3-09 tablet by ity of 30 mg 24 hr 00:00: mouth [place] tablet 00 daily. [facility] Branch isosorbide 2020-0 Yes [id number] 30mg Take 1 Univers mononitrate 3-09 tablet by ity of 30 mg 24 hr 00:00: mouth [place] tablet 00 daily. [facility] Branch isosorbide 2020-0 Yes [id number] 30mg Take 1 Univers mononitrate 3-09 tablet by ity of 30 mg 24 hr 00:00: mouth [place] tablet 00 daily. [facility] isosorbide 2020-0 Yes [id number] 30mg Take 1 Univers mononitrate 3-09 tablet by ity of 30 mg 24 hr 00:00: mouth [place] tablet 00 daily. [facility] Branch isosorbide 2020-0 Yes [id number] 30mg Take 1 Univers mononitrate 3-09 tablet by ity of 30 mg 24 hr 00:00: mouth [place] tablet 00 daily. [facility] isosorbide 2020-0 2021- No [id number] 30mg Take 1 Univers mononitrate 3-09 01-08 tablet by it y of 30 mg 24 hr 00:00: 00:00 [place] tablet 00 :00 daily. [facility] Branch insulin NPH 2018-05 Yes [id number] Inject 80 Univers and regular 2-13 units AM, ity of human 70-30 00:00: 90 units [place] (NOVOLIN 00 PM Medical 70/30 U-100 Branch INSULIN) 100 unit/mL (70-30) injection insulin NPH 2018-05 Yes [id number] Inject 80 Univers and regular 2-13 units AM, ity of human 70-30 00:00: 90 units [place] (NOVOLIN 00 PM Medical 70/30 U-100 Branch INSULIN) 100 unit/mL (70-30) injection insulin NPH 2018-05 Yes [id number] Inject 80 Univers and regular 2-13 units AM, ity of human 70-30 00:00: 90 units [place] (NOVOLIN 00 PM Medical 70/30 U-100 Branch INSULIN) 100 unit/mL (70-30) injection insulin NPH 2018-05 Yes [id number] Inject 80 Univers and regular 2-13 units AM, ity of human 00:00: 90 units [place] (NOVOLIN 00 PM Medical 70/30 U-100 Branch INSULIN) 100 unit/mL (70-30) injection insulin NPH 2018-05 Yes [id number] Inject 80 Univers and regular 2-13 units AM, ity of human 00:00: 90 units [place] (NOVOLIN 00 PM Medical 70/30 U-100 Branch INSULIN) 100 unit/mL (70-30) injection insulin NPH 2018-05 Yes [id number] Inject 80 Univers and regular 2-13 units AM, ity of human 30 00:00: 90 units [place] (NOVOLIN 00 PM Medical 70/30 U-100 Branch INSULIN) 100 unit/mL (70-30) injection insulin NPH 2018-05 Yes [id number] Inject 80 Univers and regular 2-13 units AM, ity of human 00:00: 90 units [place] (NOVOLIN 00 PM Medical 70/30 U-100 Branch INSULIN) 100 unit/mL (70-30) injection insulin NPH 2018-05 2020- No [id number] Inject 80 [facility] and regular 2-13 03-20 units AM, it [facility] of human 00:00: 00:00 90 units [place] (NOVOLIN 00 :00 PM Medical 70/30 U-100 Branch INSULIN) 100 unit/mL (70-30) injection FUROSEMIDE 2018-05 Yes [id number] TAKE 1 [facility] 20 mg 2-11 TABLET BY [facility] of tablet 00:00: MOUTH ONCE [place] DAILY [facility] FUROSEMIDE 2018-05 Yes [id number] TAKE 1 [facility] 20 mg 2-11 TABLET BY [facility] of tablet 00:00: MOUTH ONCE [place] DAILY [facility] FUROSEMIDE 2018-05 Yes [id number] TAKE 1 [facility] 20 mg 2-11 TABLET BY [facility] of tablet 00:00: MOUTH ONCE [place] DAILY [facility] FUROSEMIDE 2018-05 Yes [id number] TAKE 1 [facility] 20 mg 2-11 TABLET BY [facility] of tablet 00:00: MOUTH ONCE [place] DAILY [facility] FUROSEMIDE 2018-05 Yes [id number] TAKE 1 [facility] 20 mg 2-11 TABLET BY [facility] of tablet 00:00: MOUTH ONCE DAILY Medical [facility] FUROSEMIDE 2019- Yes [id number] TAKE 1 [facility] 20 mg 2-11 TABLET BY [facility] of tablet 00:00: MOUTH ONCE DAILY [facility] FUROSEMIDE 2019- Yes [id number] TAKE 1 [facility] 20 mg 2-11 TABLET BY [facility] of tablet 00:00: MOUTH ONCE DAILY [facility] FUROSEMIDE 2019- Yes [id number] TAKE 1 [facility] 20 mg 2-11 TABLET BY [facility] of tablet 00:00: MOUTH ONCE DAILY [facility] FUROSEMIDE 2019- Yes [id number] TAKE 1 [facility] 20 mg 2-11 TABLET BY [facility] of tablet 00:00: MOUTH ONCE DAILY [facility] FUROSEMIDE 2019- Yes [id number] TAKE 1 [facility] 20 mg 2-11 TABLET BY [facility] of tablet 00:00: MOUTH ONCE [place] DAILY [facility] FUROSEMIDE 2019- Yes [id number] TAKE 1 [facility] 20 mg 2-11 TABLET BY [facility] of tablet 00:00: MOUTH ONCE [place] DAILY [facility] FUROSEMIDE 2019- Yes [id number] TAKE 1 [facility] 20 mg 2-11 TABLET BY [facility] of tablet 00:00: MOUTH ONCE [place] DAILY [facility] FUROSEMIDE 2019- Yes [id number] TAKE 1 [facility] 20 mg 2-11 TABLET BY [facility] of tablet 00:00: MOUTH ONCE [place] DAILY [facility] FUROSEMIDE 2019- Yes [id number] TAKE 1 [facility] 20 mg 2-11 TABLET BY [facility] of tablet 00:00: MOUTH ONCE [place] DAILY [facility] FUROSEMIDE 2019- Yes [id number] TAKE 1 [facility] 20 mg 2-11 TABLET BY [facility] of tablet 00:00: MOUTH ONCE [place] DAILY [facility] FUROSEMIDE 2019- Yes [id number] TAKE 1 [facility] 20 mg 2-11 TABLET BY [facility] of tablet 00:00: MOUTH ONCE [place] DAILY [facility] FUROSEMIDE 2019- Yes [id number] TAKE 1 [facility] 20 mg 2-11 TABLET BY [facility] of tablet 00:00: MOUTH ONCE [place] DAILY [facility] FUROSEMIDE 2019- Yes [id number] TAKE 1 [facility] 20 mg 2-11 TABLET BY [facility] of tablet 00:00: MOUTH ONCE [place] DAILY [facility] FUROSEMIDE 2019- Yes [id number] TAKE 1 [facility] 20 mg 2-11 TABLET BY [facility] of tablet 00:00: MOUTH ONCE [place] DAILY [facility] FUROSEMIDE 2019- Yes [id number] TAKE 1 [facility] 20 mg 2-11 TABLET BY [facility] of tablet 00:00: MOUTH ONCE [place] DAILY [facility] FUROSEMIDE 2019- Yes [id number] TAKE 1 [facility] 20 mg 2-11 TABLET BY [facility] of tablet 00:00: MOUTH ONCE [place] DAILY [facility] FUROSEMIDE 2019- Yes [id number] TAKE 1 [facility] 20 mg 2-11 TABLET BY [facility] of tablet 00:00: MOUTH ONCE [place] DAILY [facility] FUROSEMIDE 2018- Yes [id number] TAKE 1 [facility] 20 mg 2-11 TABLET BY [facility] of tablet 00:00: MOUTH ONCE [place] DAILY [facility] FUROSEMIDE 2019- Yes [id number] TAKE 1 [facility] 20 mg 2-11 TABLET BY [facility] of tablet 00:00: MOUTH ONCE [place] DAILY [facility] FUROSEMIDE 2018- Yes [id number] TAKE 1 [facility] 20 mg 2-11 TABLET BY [facility] of tablet 00:00: MOUTH ONCE [place] DAILY [facility] FUROSEMIDE 2019- Yes [id number] TAKE 1 [facility] 20 mg 2-11 TABLET BY [facility] of tablet 00:00: MOUTH ONCE [place] DAILY [facility] FUROSEMIDE 2019- Yes [id number] TAKE 1 [facility] 20 mg 2-11 TABLET BY [facility] of tablet 00:00: MOUTH ONCE [place] DAILY [facility] FUROSEMIDE 2019- 2020- No [id number] TAKE 1 [facility] 20 mg 2-11 08-18 TABLET BY [facility] of tablet 00:00: 00:00 MOUTH ONCE [place] 00 :00 DAILY [facility] FUROSEMIDE 2019- 2020- No [id number] TAKE 1 [facility] 20 mg 2-11 08-18 TABLET BY [facility] of tablet 00:00: 00:00 M[place]TH ONCE [place] 00 :00 DAILY [facility] FUROSEMIDE 2019- 2020- No [id number] TAKE 1 [facility] 20 mg 2-11 08-18 TABLET BY [facility] of tablet 00:00: 00:00 MOUTH ONCE [place] 00 :00 DAILY [facility] pantoprazol 2019- Yes [id number] 40mg Take 1 [facility] e 40 mg EC 0-29 tablet by it[facility] of tablet 00:00: mouth [place] daily. Medical [facility] potassium 2019- Yes [id number] 10meq Take 1 [facility] chloride 10 0-29 tablet by [facility]y of mEq CR 00:00: mouth [place] 00 daily. Medical [facility] albuterol 2018-05 Yes [id number] 2{puff} Inhale 2 [facility] 90 0-29 Puffs ity of mcg/actuati 00:00: every 6 [place] on inhaler 00 (six) Medical hours as Branch needed for Wheezing or Shortness of Breath. nitroglycer 2018-05 Yes [id number] 1 tab [facility] in 0.4 mg 0-29 q5min up it[facility] of sublingual 00:00: to 3 doses [place] tablet 00 PRN chest Medical pain, then Branch activate 911. DULoxetine 2018-05 Yes [id number] 30mg Take 1 [facility] 30 mg 0-29 capsule by ity of capsule 00:00: mouth [place] 00 daily. Medical Branch pantoprazol 2018-05 Yes [id number] 40mg Take 1 [facility] e 40 mg EC 0-29 tablet by ity of tablet 00:00: mouth [place] 00 daily. Medical [facility] potassium 2018-05 Yes [id number] 10meq Take 1 [facility] chloride 10 0-29 tablet by [facility]y of mEq CR 00:00: mouth [place] tablet 00 daily. Medical Branch albuterol 2018-05 Yes [id number] 2{puff} Inhale 2 [facility] 90 0-29 Puffs ity of mcg/actuati 00:00: every 6 [place] inhaler 00 (six) Medical hours as Branch needed for Wheezing or Shortness of Breath. nitroglycer 2018-05 Yes [id number] 1 tab [facility] in 0.4 mg 0-29 q5min up it[facility] of sublingual 00:00: to 3 doses [place] tablet 00 PRN chest Medical pain, then Branch activate 911. DULoxetine 2018-05 Yes [id number] 30mg Take 1 [facility] 30 mg 0-29 capsule by ity of capsule 00:00: mouth [place] 00 daily. Medical [facility] pantoprazol 2018-05 Yes [id number] 40mg Take 1 [facility] e 40 mg EC 0-29 tablet by ity of tablet 00:00: mouth [place] 00 daily. Medical [facility] potassium 2018-05 Yes [id number] 10meq Take 1 [facility] chloride 10 0-29 tablet by [facility] of mEq CR 00:00: mouth [place] tablet 00 daily. Medical Branch albuterol 2018-05 Yes [id number] 2{puff} Inhale 2 [facility] 90 0-29 Puffs ity of mcg/actuati 00:00: every 6 [place] inhaler 00 (six) Medical hours as Branch needed for Wheezing or Shortness of Breath. nitroglycer 2018-05 Yes [id number] 1 tab [facility] in 0.4 mg 0-29 q5min up it[facility] of sublingual 00:00: to 3 doses [place] tablet 00 PRN chest Medical pain, then Branch activate 911. DULoxetine 2018-05 Yes [id number] 30mg Take 1 [facility] 30 mg 0-29 capsule by [facility] of capsule 00:00: mouth [place] 00 daily. Medical [facility] pantoprazol 2018-05 Yes [id number] 40mg Take 1 [facility] e 40 mg EC 0-29 tablet by ity of tablet 00:00: mouth [place] 00 daily. Medical [facility] potassium 2018-05 Yes [id number] 10meq Take 1 [facility] chloride 10 0-29 tablet by [facility]y of mEq CR 00:00: mouth [place] tablet 00 daily. Medical [facility] albuterol 2018-05 Yes [id number] 2{puff} Inhale 2 [facility] 90 0-29 Puffs ity of mcg/actuati 00:00: every 6 [place] inhaler 00 (six) Medical hours as Branch needed for Wheezing or Shortness of Breath. nitroglycer 2018-05 Yes [id number] 1 tab [facility] in 0.4 mg 0-29 q5min up it[facility] of sublingual 00:00: to 3 doses [place] tablet 00 PRN chest Medical pain, then Branch activate 911. DULoxetine 2018-05 Yes [id number] 30mg Take 1 [facility] 30 mg 0-29 capsule by ity of capsule 00:00: mouth [place] 00 daily. [facility] pantoprazol 2018-05 Yes [id number] 40mg Take 1 [facility] e 40 mg EC 0-29 tablet by ity of tablet 00:00: mouth [place] 00 daily. Medical Branch potassium 2018-05 Yes [id number] 10meq Take 1 [facility] chloride 10 0-29 tablet by ity of mEq CR 00:00: mouth [place] tablet 00 daily. Medical [facility] albuterol 2018-05 Yes [id number] 2{puff} Inhale 2 [facility] 90 0-29 Puffs ity of mcg/actuati 00:00: every 6 [place] inhaler 00 (six) Medical hours as Branch needed for Wheezing or Shortness of Breath. nitroglycer 2018-05 Yes [id number] 1 tab [facility] in 0.4 mg 0-29 q5min up ity of sublingual 00:00: to 3 doses [place] tablet 00 PRN chest Medical pain, then Branch activate 911. DULoxetine 2018-05 Yes [id number] 30mg Take 1 [facility] 30 mg 0-29 capsule by ity of capsule 00:00: mouth [place] 00 daily. Medical [facility] pantoprazol 2018-05 Yes [id number] 40mg Take 1 [facility] e 40 mg EC 0-29 tablet by ity of tablet 00:00: mouth [place] 00 daily. Medical [facility] potassium 2018-05 Yes [id number] 10meq Take 1 [facility] chloride 10 0-29 tablet by ity of mEq CR 00:00: mouth [place] tablet 00 daily. Medical [facility] albuterol 2018-05 Yes [id number] 2{puff} Inhale 2 [facility] 90 0-29 Puffs ity of mcg/actuati 00:00: every 6 [place] inhaler 00 (six) Medical hours as Branch needed for Wheezing or Shortness of Breath. nitroglycer 2018-05 Yes [id number] 1 tab SL [facility] in 0.4 mg 0-29 q5min up it[facility] of sublingual 00:00: to 3 doses [place] tablet 00 PRN chest Medical pain, then Branch activate 911. DULoxetine 2018-05 Yes [id number] 30mg Take 1 [facility] 30 mg 0-29 capsule by ity of capsule 00:00: mouth [place] 00 daily. [facility] pantoprazol 2018-05 Yes [id number] 40mg Take 1 [facility] e 40 mg EC 0-29 tablet by ity of tablet 00:00: mouth [place] 00 daily. Medical [facility] potassium 2018-05 Yes [id number] 10meq Take 1 [facility] n[facility] chloride 10 0-29 tablet by [facility]y of mEq CR 00:00: mouth [place] tablet 00 daily. Medical [facility] albuterol 2018-05 Yes [id number] 2{puff} Inhale 2 [facility] 90 0-29 Puffs ity of mcg/actuati 00:00: every 6 [place] inhaler 00 (six) Medical hours as Branch needed for Wheezing or Shortness of Breath. nitroglycer 2018-05 Yes [id number] 1 tab SL [facility] in 0.4 mg 0-29 q5min up ity of sublingual 00:00: to 3 doses [place] tablet 00 PRN chest Medical pain, then Branch activate 911. DULoxetine 2018-05 Yes [id number] 30mg Take 1 [facility] 30 mg 0-29 capsule by ity of capsule 00:00: mouth [place] 00 daily. [facility] pantoprazol 2018-05 Yes [id number] 40mg Take 1 [facility] e 40 mg EC 0-29 tablet by ity of tablet 00:00: mouth [place] 00 daily. Medical [facility] potassium 2018-05 Yes [id number] 10meq Take 1 [facility] n[facility] chloride 10 0-29 tablet by ity of mEq CR 00:00: mouth [place] tablet 00 daily. Medical [facility] albuterol 2018-05 Yes [id number] 2{puff} Inhale 2 [facility] 90 0-29 Puffs ity of mcg/actuati 00:00: every 6 [place] inhaler 00 (six) Medical hours as Branch needed for Wheezing or Shortness of Breath. nitroglycer 2018-05 Yes [id number] 1 tab SL [facility] in 0.4 mg 0-29 q5min up ity of sublingual 00:00: to 3 doses [place] tablet 00 PRN chest Medical pain, then Branch activate 911. DULoxetine 2018-05 Yes [id number] 30mg Take 1 [facility] 30 mg 0-29 capsule by ity of capsule 00:00: mouth [place] 00 daily. [facility] pantoprazol 2018-05 Yes [id number] 40mg Take 1 [facility] e 40 mg EC 0-29 tablet by ity of tablet 00:00: mouth [place] 00 daily. Medical [facility] potassium 2018-05 Yes [id number] 10meq Take 1 [facility] chloride 10 0-29 tablet by ity of mEq CR 00:00: mouth [place] tablet 00 daily. Medical [facility] albuterol 2018-05 Yes [id number] 2{puff} Inhale 2 [facility] 90 0-29 Puffs ity of mcg/actuati 00:00: every 6 [place] inhaler 00 (six) Medical hours as Branch needed for Wheezing or Shortness of Breath. nitroglycer 2018-05 Yes [id number] 1 tab SL [facility] in 0.4 mg 0-29 q5min up ity of sublingual 00:00: to 3 doses [place] tablet 00 PRN chest Medical pain, then Branch activate 911. DULoxetine 2018-05 Yes [id number] 30mg Take 1 [facility] 30 mg 0-29 capsule by ity of capsule 00:00: mouth [place] 00 daily. [facility] pantoprazol 2018-05 Yes [id number] 40mg Take 1 [facility] e 40 mg EC 0-29 tablet by ity of tablet 00:00: mouth [place] 00 daily. Medical [facility] potassium 2018-05 Yes [id number] 10meq Take 1 [facility] chloride 10 0-29 tablet by [facility]y of mEq CR 00:00: mouth [place] tablet 00 daily. Medical [facility] albuterol 2018-05 Yes [id number] 2{puff} Inhale 2 [facility] 90 0-29 Puffs ity of mcg/actuati 00:00: every 6 [place] inhaler 00 (six) Medical hours as Branch needed for Wheezing or Shortness of Breath. nitroglycer 2018-05 Yes [id number] 1 tab SL [facility] in 0.4 mg 0-29 q5min up ity of sublingual 00:00: to 3 doses [place] tablet 00 PRN chest Medical pain, then Branch activate 911. DULoxetine 2018-05 Yes [id number] 30mg Take 1 [facility] 30 mg 0-29 capsule by ity of capsule 00:00: mouth [place] 00 daily. [facility] pantoprazol 2018-05 Yes [id number] 40mg Take 1 [facility] e 40 mg EC 0-29 tablet by ity of tablet 00:00: mouth [place] 00 daily. Medical [facility] potassium 2018-05 Yes [id number] 10meq Take 1 [facility] n[facility] chloride 10 0-29 tablet by ity of mEq CR 00:00: mouth [place] tablet 00 daily. [facility] albuterol 2018-05 Yes [id number] 2{puff} Inhale 2 [facility] 90 0-29 Puffs ity of mcg/actuati 00:00: every 6 [place] inhaler 00 (six) Medical hours as Branch needed for Wheezing or Shortness of Breath. nitroglycer 2018-05 Yes [id number] 1 tab SL [facility] in 0.4 mg 0-29 q5min up it[facility] of sublingual 00:00: to 3 doses [place] tablet 00 PRN chest Medical pain, then Branch activate 911. DULoxetine 2018-05 Yes [id number] 30mg Take 1 [facility] 30 mg 0-29 capsule by [facility]y of capsule 00:00: mouth [place] 00 daily. [facility] pantoprazol 2018-05 Yes [id number] 40mg Take 1 [facility] e 40 mg EC 0-29 tablet by [facility]y of tablet 00:00: mouth [place] 00 daily. Medical [facility] potassium 2018-05 Yes [id number] 10meq Take 1 [facility] n[facility] chloride 10 0-29 tablet by ity of mEq CR 00:00: mouth [place] tablet 00 daily. [facility] albuterol 2018-05 Yes [id number] 2{puff} Inhale 2 [facility] 90 0-29 Puffs ity of mcg/actuati 00:00: every 6 [place] inhaler 00 (six) Medical hours as Branch needed for Wheezing or Shortness of Breath. nitroglycer 2018-05 Yes [id number] 1 tab [facility] in 0.4 mg 0-29 q5min up ity of sublingual 00:00: to 3 doses [place] tablet 00 PRN chest Medical pain, then Branch activate 911. DULoxetine 2018-05 Yes [id number] 30mg Take 1 [facility] 30 mg 0-29 capsule by ity of capsule 00:00: mouth [place] 00 daily. [facility] pantoprazol 2018-05 Yes [id number] 40mg Take 1 [facility] e 40 mg EC 0-29 tablet by [facility]y of tablet 00:00: mouth [place] 00 daily. Medical [facility] potassium 2018-05 Yes [id number] 10meq Take 1 [facility] chloride 10 0-29 tablet by [facility]y of mEq CR 00:00: mouth [place] tablet 00 daily. [facility] albuterol 2018-05 Yes [id number] 2{puff} Inhale 2 [facility] 90 0-29 Puffs ity of mcg/actuati 00:00: every 6 [place] inhaler 00 (six) Medical hours as Branch needed for Wheezing or Shortness of Breath. nitroglycer 2018-05 Yes [id number] 1 tab SL [facility] in 0.4 mg 0-29 q5min up ity of sublingual 00:00: to 3 doses [place] tablet 00 PRN chest Medical pain, then Branch activate 911. DULoxetine 2018-05 Yes [id number] 30mg Take 1 [facility] 30 mg 0-29 capsule by ity of capsule 00:00: mouth [place] 00 daily. [facility] albuterol 2018-05 Yes [id number] 2{puff} Inhale 2 [facility] 90 0-29 Puffs ity of mcg/actuati 00:00: every 6 [place] on inhaler 00 (six) Medical hours as Branch needed for Wheezing or Shortness of Breath. nitroglycer 2018-05 Yes [id number] 1 tab SL [facility] in 0.4 mg 0-29 q5min up ity of sublingual 00:00: to 3 doses [place] tablet 00 PRN chest Medical pain, then Branch activate 911. DULoxetine 2018-05 Yes [id number] 30mg Take 1 [facility] 30 mg 0-29 capsule by ity of capsule 00:00: mouth [place] 00 daily. Medical Branch albuterol 2018-05 Yes [id number] 2{puff} Inhale 2 [facility] 90 0-29 Puffs ity of mcg/actuati 00:00: every 6 [place] on inhaler 00 (six) Medical hours as Branch needed for Wheezing or Shortness of Breath. nitroglycer 2018-05 Yes [id number] 1 tab SL [facility] in 0.4 mg 0-29 q5min up ity of sublingual 00:00: to 3 doses [place] tablet 00 PRN chest Medical pain, then Branch activate 911. albuterol 2018-05 Yes [id number] 2{puff} Inhale 2 [facility] 90 0-29 Puffs ity of mcg/actuati 00:00: every 6 [place] on inhaler 00 (six) Medical hours as Branch needed for Wheezing or Shortness of Breath. nitroglycer 2018-05 Yes [id number] 1 tab SL [facility] in 0.4 mg 0-29 q5min up ity of sublingual 00:00: to 3 doses [place] tablet 00 PRN chest Medical pain, then Branch activate 911. albuterol 2018-05 Yes [id number] 2{puff} Inhale 2 [facility] 90 0-29 Puffs ity of mcg/actuati 00:00: every 6 [place] on inhaler 00 (six) Medical hours as Branch needed for Wheezing or Shortness of Breath. nitroglycer 2018-05 Yes [id number] 1 tab SL [facility] in 0.4 mg 0-29 q5min up ity of sublingual 00:00: to 3 doses [place] tablet 00 PRN chest Medical pain, then Branch activate 911. albuterol 2018-05 Yes [id number] 2{puff} Inhale 2 [facility] 90 0-29 Puffs ity of mcg/actuati 00:00: every 6 [place] inhaler 00 (six) Medical hours as Branch needed for Wheezing or Shortness of Breath. nitroglycer 2018-05 Yes [id number] 1 tab SL [facility] in 0.4 mg 0-29 q5min up ity of sublingual 00:00: to 3 doses [place] tablet 00 PRN chest Medical pain, then Branch activate 911. albuterol 2018-05 Yes [id number] 2{puff} Inhale 2 [facility] 90 0-29 Puffs ity of mcg/actuati 00:00: every 6 [place] inhaler 00 (six) Medical hours as Branch needed for Wheezing or Shortness of Breath. nitroglycer 2018-05 Yes [id number] 1 tab SL [facility] in 0.4 mg 0-29 q5min up ity of sublingual 00:00: to 3 doses [place] tablet 00 PRN chest Medical pain, then Branch activate 911. albuterol 2018-05 Yes [id number] 2{puff} Inhale 2 [facility] 90 0-29 Puffs ity of mcg/actuati 00:00: every 6 [place] inhaler 00 (six) Medical hours as Branch needed for Wheezing or Shortness of Breath. nitroglycer 2018-05 Yes [id number] 1 tab SL [facility] in 0.4 mg 0-29 q5min up ity of sublingual 00:00: to 3 doses [place] tablet 00 PRN chest Medical pain, then Branch activate 911. albuterol 2018-05 Yes [id number] 2{puff} Inhale 2 [facility] 90 0-29 Puffs ity of mcg/actuati 00:00: every 6 [place] inhaler 00 (six) Medical hours as Branch needed for Wheezing or Shortness of Breath. nitroglycer 2018-05 Yes [id number] 1 tab SL [facility] in 0.4 mg 0-29 q5min up ity of sublingual 00:00: to 3 doses [place] tablet 00 PRN chest Medical pain, then Branch activate 911. albuterol 2018-05 Yes [id number] 2{puff} Inhale 2 [facility] 90 0-29 Puffs ity of mcg/actuati 00:00: every 6 [place] inhaler 00 (six) Medical hours as Branch needed for Wheezing or Shortness of Breath. nitroglycer 2018-05 Yes [id number] 1 tab SL [facility] in 0.4 mg 0-29 q5min up ity of sublingual 00:00: to 3 doses [place] tablet 00 PRN chest Medical pain, then Branch activate 911. albuterol 2018-05 Yes [id number] 2{puff} Inhale 2 [facility] 90 0-29 Puffs ity of mcg/actuati 00:00: every 6 [place] inhaler 00 (six) Medical hours as Branch needed for Wheezing or Shortness of Breath. nitroglycer 2018-05 Yes [id number] 1 tab SL [facility] in 0.4 mg 0-29 q5min up ity of sublingual 00:00: to 3 doses [place] tablet 00 PRN chest Medical pain, then Branch activate 911. albuterol 2018-05 Yes [id number] 2{puff} Inhale 2 [facility] 90 0-29 Puffs [facility]y of mcg/actuati 00:00: every 6 [place] inhaler 00 (six) Medical hours as Branch needed for Wheezing or Shortness of Breath. nitroglycer 2018-05 Yes [id number] 1 tab SL [facility] in 0.4 mg 0-29 q5min up ity of sublingual 00:00: to 3 doses [place] tablet 00 PRN chest Medical pain, then Branch activate 911. albuterol 2018-05 Yes [id number] 2{puff} Inhale 2 [facility] 90 0-29 Puffs ity of mcg/actuati 00:00: every 6 [place] inhaler 00 (six) Medical hours as Branch needed for Wheezing or Shortness of Breath. nitroglycer 2018-05 Yes [id number] 1 tab SL [facility] in 0.4 mg 0-29 q5min up ity of sublingual 00:00: to 3 doses [place] tablet 00 PRN chest Medical pain, then Branch activate 911. albuterol 2018-05 Yes [id number] 2{puff} Inhale 2 [facility] 90 0-29 Puffs ity of mcg/actuati 00:00: every 6 [place] inhaler 00 (six) Medical hours as Branch needed for Wheezing or Shortness of Breath. nitroglycer 2018-05 Yes [id number] 1 tab SL [facility] in 0.4 mg 0-29 q5min up ity of sublingual 00:00: to 3 doses [place] tablet 00 PRN chest Medical pain, then Branch activate 911. albuterol 2018-05 Yes [id number] 2{puff} Inhale 2 [facility] 90 0-29 Puffs ity of mcg/actuati 00:00: every 6 [place] inhaler 00 (six) Medical hours as Branch needed for Wheezing or Shortness of Breath. nitroglycer 2018-05 Yes [id number] 1 tab SL [facility] in 0.4 mg 0-29 q5min up ity of sublingual 00:00: to 3 doses [place] tablet 00 PRN chest Medical pain, then Branch activate 911. albuterol 2018-05 Yes [id number] 2{puff} Inhale 2 [facility] 90 0-29 Puffs ity of mcg/actuati 00:00: every 6 [place] inhaler 00 (six) Medical hours as Branch needed for Wheezing or Shortness of Breath. nitroglycer 2018-05 Yes [id number] 1 tab SL [facility] in 0.4 mg 0-29 q5min up ity of sublingual 00:00: to 3 doses [place] tablet 00 PRN chest Medical pain, then Branch activate 911. albuterol 2018-05 Yes [id number] 2{puff} Inhale 2 [facility] 90 0-29 Puffs ity of mcg/actuati 00:00: every 6 [place] inhaler 00 (six) Medical hours as Branch needed for Wheezing or Shortness of Breath. nitroglycer 2018-05 Yes [id number] 1 tab SL [facility] in 0.4 mg 0-29 q5min up ity of sublingual 00:00: to 3 doses [place] tablet 00 PRN chest Medical pain, then Branch activate 911. albuterol 2018-05 Yes [id number] 2{puff} Inhale 2 [facility] 90 0-29 Puffs ity of mcg/actuati 00:00: every 6 [place] inhaler 00 (six) Medical hours as Branch needed for Wheezing or Shortness of Breath. nitroglycer 2018-05 Yes [id number] 1 tab SL [facility] in 0.4 mg 0-29 q5min up ity of sublingual 00:00: to 3 doses [place] tablet 00 PRN chest Medical pain, then Branch activate 911. albuterol 2018-05 Yes [id number] 2{puff} Inhale 2 [facility] 90 0-29 Puffs ity of mcg/actuati 00:00: every 6 [place] inhaler 00 (six) Medical hours as Branch needed for Wheezing or Shortness of Breath. nitroglycer 2018-05 Yes [id number] 1 tab SL [facility] in 0.4 mg 0-29 q5min up ity of sublingual 00:00: to 3 doses [place] tablet 00 PRN chest Medical pain, then Branch activate 911. albuterol 2018-05 Yes [id number] 2{puff} Inhale 2 [facility] 90 0-29 Puffs ity of mcg/actuati 00:00: every 6 [place] inhaler 00 (six) Medical hours as Branch needed for Wheezing or Shortness of Breath. nitroglycer 2018-05 Yes [id number] 1 tab SL [facility] in 0.4 mg 0-29 q5min up ity of sublingual 00:00: to 3 doses [place] tablet 00 PRN chest Medical pain, then Branch activate 911. albuterol 2018-05 Yes [id number] 2{puff} Inhale 2 [facility] 90 0-29 Puffs ity of mcg/actuati 00:00: every 6 [place] inhaler 00 (six) Medical hours as Branch needed for Wheezing or Shortness of Breath. nitroglycer 2018-05 Yes [id number] 1 tab SL [facility] in 0.4 mg 0-29 q5min up ity of sublingual 00:00: to 3 doses [place] tablet 00 PRN chest Medical pain, then Branch activate 911. albuterol 2018-05 Yes [id number] 2{puff} Inhale 2 [facility] 90 0-29 Puffs ity of mcg/actuati 00:00: every 6 [place] inhaler 00 (six) Medical hours as Branch needed for Wheezing or Shortness of Breath. nitroglycer 2018-05 Yes [id number] 1 tab SL [facility] in 0.4 mg 0-29 q5min up ity of sublingual 00:00: to 3 doses [place] tablet 00 PRN chest Medical pain, then Branch activate 911. albuterol 2018-05 Yes [id number] 2{puff} Inhale 2 [facility] 90 0-29 Puffs ity of mcg/actuati 00:00: every 6 [place] inhaler 00 (six) Medical hours as Branch needed for Wheezing or Shortness of Breath. nitroglycer 2018-05 Yes [id number] 1 tab SL [facility] in 0.4 mg 0-29 q5min up ity of sublingual 00:00: to 3 doses [place] tablet 00 PRN chest Medical pain, then Branch activate 911. albuterol 2018-05 Yes [id number] 2{puff} Inhale 2 [facility] 90 0-29 Puffs ity of mcg/actuati 00:00: every 6 [place] inhaler 00 (six) Medical hours as Branch needed for Wheezing or Shortness of Breath. nitroglycer 2018-05 Yes [id number] 1 tab SL [facility] in 0.4 mg 0-29 q5min up ity of sublingual 00:00: to 3 doses [place] tablet 00 PRN chest Medical pain, then Branch activate 911. albuterol 2018-05 Yes [id number] 2{puff} Inhale 2 [facility] 90 0-29 Puffs ity of mcg/actuati 00:00: every 6 [place] inhaler 00 (six) Medical hours as Branch needed for Wheezing or Shortness of Breath. nitroglycer 2018-05 Yes [id number] 1 tab SL [facility] in 0.4 mg 0-29 q5min up ity of sublingual 00:00: to 3 doses [place] tablet 00 PRN chest Medical pain, then Branch activate 911. albuterol 2018-05 Yes [id number] 2{puff} Inhale 2 [facility] 90 0-29 Puffs ity of mcg/actuati 00:00: every 6 [place] inhaler 00 (six) Medical hours as Branch needed for Wheezing or Shortness of Breath. nitroglycer 2018-05 Yes [id number] 1 tab [facility] in 0.4 mg 0-29 q5min up ity of sublingual 00:00: to 3 doses [place] tablet 00 PRN chest Medical pain, then Branch activate 911. nitroglycer 2018-05 Yes [id number] 1 tab [facility] in 0.4 mg 0-29 q5min up ity of sublingual 00:00: to 3 doses [place] tablet 00 PRN chest Medical pain, then Branch activate 911. nitroglycer 2018-05 Yes [id number] 1 tab [facility] in 0.4 mg 0-29 q5min up ity of sublingual 00:00: to 3 doses [place] tablet 00 PRN chest Medical pain, then Branch activate 911. nitroglycer 2018-05 Yes [id number] 1 tab [facility] in 0.4 mg 0-29 q5min up ity of sublingual 00:00: to 3 doses [place] tablet 00 PRN chest Medical pain, then Branch activate 911. nitroglycer 2018-05 Yes [id number] 1 tab [facility] in 0.4 mg 0-29 q5min up ity of sublingual 00:00: to 3 doses [place] tablet 00 PRN chest Medical pain, then Branch activate 911. nitroglycer 2018-05 Yes [id number] 1 tab [facility] in 0.4 mg 0-29 q5min up it[facility] of sublingual 00:00: to 3 doses [place] tablet 00 PRN chest Medical pain, then Branch activate 911. nitroglycer 2018-05 Yes [id number] 1 tab [facility] in 0.4 mg 0-29 q5min up [facility] of sublingual 00:00: to 3 doses [place] tablet 00 PRN chest Medical pain, then Branch activate 911. nitroglycer 2018-05 Yes [id number] 1 tab [facility] in 0.4 mg 0-29 q5min up it[facility] of sublingual 00:00: to 3 doses [place] tablet 00 PRN chest Medical pain, then Branch activate 911. nitroglycer 2018-05 Yes [id number] 1 tab [facility] in 0.4 mg 0-29 q5min up it[facility] of sublingual 00:00: to 3 doses [place] tablet 00 PRN chest Medical pain, then Branch activate 911. nitroglycer 2018-05 Yes [id number] 1 tab [facility] in 0.4 mg 0-29 q5min up it[facility] of sublingual 00:00: to 3 doses [place] tablet 00 PRN chest Medical pain, then Branch activate 911. nitroglycer 2018-05 Yes [id number] 1 tab [facility] in 0.4 mg 0-29 q5min up it[facility] of sublingual 00:00: to 3 doses [place] tablet 00 PRN chest Medical pain, then Branch activate 911. nitroglycer 2018-05 Yes [id number] 1 tab [facility] in 0.4 mg 0-29 q5min up it[facility] of sublingual 00:00: to 3 doses [place] tablet 00 PRN chest Medical pain, then Branch activate 911. nitroglycer 2018-05 Yes [id number] 1 tab [facility] in 0.4 mg 0-29 q5min up [facility] of sublingual 00:00: to 3 doses [place] tablet 00 PRN chest Medical pain, then Branch activate 911. nitroglycer 2018-05 Yes [id number] 1 tab [facility] in 0.4 mg 0-29 q5min up [facility] of sublingual 00:00: to 3 doses [place] tablet 00 PRN chest Medical pain, then Branch activate 911. nitroglycer 2018-05 Yes [id number] 1 tab [facility] in 0.4 mg 0-29 q5min up [facility] of sublingual 00:00: to 3 doses [place] tablet 00 PRN chest Medical pain, then Branch activate 911. nitroglycer 2018-05 Yes [id number] 1 tab [facility] in 0.4 mg 0-29 q5min up [facility] of sublingual 00:00: to 3 doses [place] tablet 00 PRN chest Medical pain, then Branch activate 911. nitroglycer 2018-05 Yes [id number] 1 tab [facility] in 0.4 mg 0-29 q5min up it[facility] of sublingual 00:00: to 3 doses [place] tablet 00 PRN chest Medical pain, then Branch activate 911. nitroglycer 2018-05 Yes [id number] 1 tab [facility] in 0.4 mg 0-29 q5min up [facility] of sublingual 00:00: to 3 doses [place] tablet 00 PRN chest Medical pain, then Branch activate 911. nitroglycer 2018-05 Yes [id number] 1 tab [facility] in 0.4 mg 0-29 q5min up it[facility] of sublingual 00:00: to 3 doses [place] tablet 00 PRN chest Medical pain, then Branch activate 911. nitroglycer 2018-05 Yes [id number] 1 tab [facility] in 0.4 mg 0-29 q5min up ity of sublingual 00:00: to 3 doses [place] tablet 00 PRN chest Medical pain, then Branch activate 911. nitroglycer 2018-05 Yes [id number] 1 tab [facility] in 0.4 mg 0-29 q5min up ity of sublingual 00:00: to 3 doses [place] tablet 00 PRN chest Medical pain, then Branch activate 911. nitroglycer 2018-05 Yes [id number] 1 tab [facility] in 0.4 mg 0-29 q5min up ity of sublingual 00:00: to 3 doses [place] tablet 00 PRN chest Medical pain, then Branch activate 911. nitroglycer 2018-05 Yes [id number] 1 tab [facility] in 0.4 mg 0-29 q5min up ity of sublingual 00:00: to 3 doses [place] tablet 00 PRN chest Medical pain, then Branch activate 911. nitroglycer 2018-05 Yes [id number] 1 tab [facility] in 0.4 mg 0-29 q5min up ity of sublingual 00:00: to 3 doses [place] tablet 00 PRN chest Medical pain, then Branch activate 911. nitroglycer 2018-05 Yes [id number] 1 tab [facility] in 0.4 mg 0-29 q5min up it[facility] of sublingual 00:00: to 3 doses [place] tablet 00 PRN chest Medical pain, then Branch activate 911. nitroglycer 2018-05 Yes [id number] 1 tab [facility] in 0.4 mg 0-29 q5min up ity of sublingual 00:00: to 3 doses [place] tablet 00 PRN chest Medical pain, then Branch activate 911. nitroglycer 2018-05 Yes [id number] 1 tab [facility] in 0.4 mg 0-29 q5min up ity of sublingual 00:00: to 3 doses [place] tablet 00 PRN chest Medical pain, then Branch activate 911. nitroglycer 2018-05 Yes [id number] 1 tab [facility] in 0.4 mg 0-29 q5min up ity of sublingual 00:00: to 3 doses [place] tablet 00 PRN chest Medical pain, then Branch activate 911. nitroglycer 2018-05 Yes [id number] 1 tab [facility] in 0.4 mg 0-29 q5min up ity of sublingual 00:00: to 3 doses [place] tablet 00 PRN chest Medical pain, then Branch activate 911. nitroglycer 2018-05 Yes [id number] 1 tab [facility] in 0.4 mg 0-29 q5min up ity of sublingual 00:00: to 3 doses [place] tablet 00 PRN chest Medical pain, then Branch activate 911. nitroglycer 2018-05 Yes [id number] 1 tab [facility] in 0.4 mg 0-29 q5min up ity of sublingual 00:00: to 3 doses [place] tablet 00 PRN chest Medical pain, then Branch activate 911. nitroglycer 2018-05 Yes [id number] 1 tab [facility] in 0.4 mg 0-29 q5min up ity of sublingual 00:00: to 3 doses [place] tablet 00 PRN chest Medical pain, then Branch activate 911. nitroglycer 2018-05 Yes [id number] 1 tab [facility] in 0.4 mg 0-29 q5min up ity of sublingual 00:00: to 3 doses [place] tablet 00 PRN chest Medical pain, then Branch activate 911. nitroglycer 2018-05 Yes [id number] 1 tab [facility] in 0.4 mg 0-29 q5min up ity of sublingual 00:00: to 3 doses [place] tablet 00 PRN chest Medical pain, then Branch activate 911. nitroglycer 2018-05 Yes [id number] 1 tab [facility] in 0.4 mg 0-29 q5min up ity of sublingual 00:00: to 3 doses [place] tablet 00 PRN chest Medical pain, then Branch activate 911. nitroglycer 2018-05 Yes [id number] 1 tab [facility] in 0.4 mg 0-29 q5min up ity of sublingual 00:00: to 3 doses [place] tablet 00 PRN chest Medical pain, then Branch activate 911. nitroglycer 2018-05 Yes [id number] 1 tab [facility] in 0.4 mg 0-29 q5min up ity of sublingual 00:00: to 3 doses [place] tablet 00 PRN chest Medical pain, then Branch activate 911. nitroglycer 2018-05 Yes [id number] 1 tab [facility] in 0.4 mg 0-29 q5min up ity of sublingual 00:00: to 3 doses [place] tablet 00 PRN chest Medical pain, then Branch activate 911. nitroglycer 2018-05 Yes [id number] 1 tab [facility] in 0.4 mg 0-29 q5min up ity of sublingual 00:00: to 3 doses [place] tablet 00 PRN chest Medical pain, then Branch activate 911. nitroglycer 2018-05 Yes [id number] 1 tab [facility] in 0.4 mg 0-29 q5min up ity of sublingual 00:00: to 3 doses [place] tablet 00 PRN chest Medical pain, then Branch activate 911. nitroglycer 2018-05 Yes [id number] 1 tab [facility] in 0.4 mg 0-29 q5min up ity of sublingual 00:00: to 3 doses [place] tablet 00 PRN chest Medical pain, then Branch activate 911. nitroglycer 2018-05 Yes [id number] 1 tab [facility] in 0.4 mg 0-29 q5min up ity of sublingual 00:00: to 3 doses [place] tablet 00 PRN chest Medical pain, then Branch activate 911. nitroglycer 2018-05 Yes [id number] 1 tab [facility] in 0.4 mg 0-29 q5min up ity of sublingual 00:00: to 3 doses [place] tablet 00 PRN chest Medical pain, then Branch activate 911. nitroglycer 2018-05 Yes [id number] 1 tab [facility] in 0.4 mg 0-29 q5min up ity of sublingual 00:00: to 3 doses [place] tablet 00 PRN chest Medical pain, then Branch activate 911. nitroglycer 2018-05 Yes [id number] 1 tab [facility] in 0.4 mg 0-29 q5min up ity of sublingual 00:00: to 3 doses [place] tablet 00 PRN chest Medical pain, then Branch activate 911. nitroglycer 2018-05 Yes [id number] 1 tab [facility] in 0.4 mg 0-29 q5min up ity of sublingual 00:00: to 3 doses [place] tablet 00 PRN chest Medical pain, then Branch activate 911. atorvastati 2018-05 Yes [id number] 40mg Take 1 [facility] n (LIPITOR) 0-29 tablet by ity of 40 mg 00:00: mouth at [place] tablet 00 bedtime. Medical Branch clopidogrel 2018-05 Yes [id number] 75mg Take 1 [facility] (PLAVIX) 75 0-29 tablet by ity of mg tablet 00:00: mouth [place] 00 daily. Medical [facility] DULoxetine 2018-05 Yes [id number] 30mg Take 1 [facility] 30 mg 0-29 capsule by ity of capsule 00:00: mouth [place] 00 daily. [facility] pantoprazol 2018-05 Yes [id number] 40mg Take 1 [facility] e 40 mg EC 0-29 tablet by ity of tablet 00:00: mouth [place] 00 daily. Medical [facility] potassium 2018-05 Yes [id number] 10meq Take 1 [facility] chloride 10 0-29 tablet by ity of mEq CR 00:00: mouth [place] tablet 00 daily. Medical [facility] albuterol 2018-05 Yes [id number] 2{puff} Inhale 2 [facility] 90 0-29 Puffs ity of mcg/actuati 00:00: every 6 [place] on inhaler 00 (six) Medical hours as Branch needed for Wheezing or Shortness of Breath. nitroglycer 2018-05 Yes [id number] 1 tab [facility] in 0.4 mg 0-29 q5min up ity of sublingual 00:00: to 3 doses [place] tablet 00 PRN chest Medical pain, then Branch activate 911. atorvastati 2018-05 Yes [id number] 40mg Take 1 [facility] n (LIPITOR) 0-29 tablet by ity of 40 mg 00:00: mouth at [place] tablet 00 bedtime. Medical Branch clopidogrel 2018-05 Yes [id number] 75mg Take 1 [facility] (PLAVIX) 75 0-29 tablet by ity of mg tablet 00:00: mouth [place] 00 daily. Medical [facility] DULoxetine 2018-05 Yes [id number] 30mg Take 1 [facility] 30 mg 0-29 capsule by ity of capsule 00:00: mouth [place] 00 daily. Medical [facility] pantoprazol 2018-05 Yes [id number] 40mg Take 1 [facility] e 40 mg EC 0-29 tablet by ity of tablet 00:00: mouth [place] 00 daily. Medical [facility] potassium 2018-05 Yes [id number] 10meq Take 1 [facility] chloride 10 0-29 tablet by ity of mEq CR 00:00: mouth [place] tablet 00 daily. [facility] albuterol 2018-05 Yes [id number] 2{puff} Inhale 2 [facility] 90 0-29 Puffs ity of mcg/actuati 00:00: every 6 [place] inhaler 00 (six) Medical hours as Branch needed for Wheezing or Shortness of Breath. nitroglycer 2018-05 Yes [id number] 1 tab [facility] in 0.4 mg 0-29 q5min up ity of sublingual 00:00: to 3 doses [place] tablet 00 PRN chest Medical pain, then Branch activate 911. atorvastati 2018-05 Yes [id number] 40mg Take 1 [facility] n (LIPITOR) 0-29 tablet by ity of 40 mg 00:00: mouth at [place] tablet 00 bedtime. Medical Branch clopidogrel 2018-05 Yes [id number] 75mg Take 1 [facility] (PLAVIX) 75 0-29 tablet by ity of mg tablet 00:00: mouth [place] 00 daily. [facility] DULoxetine 2018-05 Yes [id number] 30mg Take 1 [facility] 30 mg 0-29 capsule by ity of capsule 00:00: mouth [place] 00 daily. [facility] pantoprazol 2018-05 Yes [id number] 40mg Take 1 [facility] e 40 mg EC 0-29 tablet by ity of tablet 00:00: mouth [place] 00 daily. [facility] potassium 2018-05 Yes [id number] 10meq Take 1 [facility] chloride 10 0-29 tablet by ity of mEq CR 00:00: mouth [place] tablet 00 daily. [facility] albuterol 2018-05 Yes [id number] 2{puff} Inhale 2 [facility] 90 0-29 Puffs ity of mcg/actuati 00:00: every 6 [place] on inhaler 00 (six) Medical hours as Branch needed for Wheezing or Shortness of Breath. nitroglycer 2018-05 Yes [id number] 1 tab [facility] in 0.4 mg 0-29 q5min up ity of sublingual 00:00: to 3 doses [place] tablet 00 PRN chest Medical pain, then Branch activate 911. atorvastati 2018-05 Yes [id number] 40mg Take 1 [facility] n (LIPITOR) 0-29 tablet by ity of 40 mg 00:00: mouth at [place] tablet 00 bedtime. Medical [facility] clopidogrel 2018-05 Yes [id number] 75mg Take 1 [facility] (PLAVIX) 75 0-29 tablet by ity of mg tablet 00:00: mouth [place] 00 daily. [facility] DULoxetine 2018-05 Yes [id number] 30mg Take 1 [facility] 30 mg 0-29 capsule by ity of capsule 00:00: mouth [place] 00 daily. [facility] pantoprazol 2018-05 Yes [id number] 40mg Take 1 [facility] e 40 mg EC 0-29 tablet by ity of tablet 00:00: mouth [place] 00 daily. [facility] potassium 2018-05 Yes [id number] 10meq Take 1 [facility] chloride 10 0-29 tablet by ity of mEq CR 00:00: mouth [place] tablet 00 daily. [facility] albuterol 2018-05 Yes [id number] 2{puff} Inhale 2 [facility] 90 0-29 Puffs ity of mcg/actuati 00:00: every 6 [place] inhaler 00 (six) Medical hours as Branch needed for Wheezing or Shortness of Breath. nitroglycer 2018-05 Yes [id number] 1 tab [facility] in 0.4 mg 0-29 q5min up ity of sublingual 00:00: to 3 doses [place] tablet 00 PRN chest Medical pain, then Branch activate 911. atorvastati 2018-05 Yes [id number] 40mg Take 1 [facility] n (LIPITOR) 0-29 tablet by ity of 40 mg 00:00: mouth at [place] tablet 00 bedtime. Medical [facility] clopidogrel 2018-05 Yes [id number] 75mg Take 1 [facility] (PLAVIX) 75 0-29 tablet by ity of mg tablet 00:00: mouth [place] 00 daily. [facility] DULoxetine 2018-05 Yes [id number] 30mg Take 1 [facility] 30 mg 0-29 capsule by ity of capsule 00:00: mouth [place] 00 daily. [facility] pantoprazol 2018-05 Yes [id number] 40mg Take 1 [facility] e 40 mg EC 0-29 tablet by ity of tablet 00:00: mouth [place] 00 daily. [facility] potassium 2018-05 Yes [id number] 10meq Take 1 [facility] chloride 10 0-29 tablet by ity of mEq CR 00:00: mouth [place] tablet 00 daily. [facility] albuterol 2018-05 Yes [id number] 2{puff} Inhale 2 [facility] 90 0-29 Puffs ity of mcg/actuati 00:00: every 6 [place] inhaler 00 (six) Medical hours as Branch needed for Wheezing or Shortness of Breath. nitroglycer 2018-05 Yes [id number] 1 tab [facility] in 0.4 mg 0-29 q5min up ity of sublingual 00:00: to 3 doses [place] tablet 00 PRN chest Medical pain, then Branch activate 911. atorvastati 2018-05 Yes [id number] 40mg Take 1 [facility] n (LIPITOR) 0-29 tablet by ity of 40 mg 00:00: mouth at [place] tablet 00 bedtime. Medical [facility] clopidogrel 2018-05 Yes [id number] 75mg Take 1 [facility] (PLAVIX) 75 0-29 tablet by ity of mg tablet 00:00: mouth [place] 00 daily. [facility] DULoxetine 2018-05 Yes [id number] 30mg Take 1 [facility] 30 mg 0-29 capsule by ity of capsule 00:00: mouth [place] 00 daily. [facility] pantoprazol 2018-05 Yes [id number] 40mg Take 1 [facility] e 40 mg EC 0-29 tablet by ity of tablet 00:00: mouth [place] 00 daily. [facility] potassium 2018-05 Yes [id number] 10meq Take 1 [facility] chloride 10 0-29 tablet by ity of mEq CR 00:00: mouth [place] tablet 00 daily. [facility] albuterol 2018-05 Yes [id number] 2{puff} Inhale 2 [facility] 90 0-29 Puffs ity of mcg/actuati 00:00: every 6 [place] inhaler 00 (six) Medical hours as Branch needed for Wheezing or Shortness of Breath. nitroglycer 2018-05 Yes [id number] 1 tab [facility] in 0.4 mg 0-29 q5min up ity of sublingual 00:00: to 3 doses [place] tablet 00 PRN chest Medical pain, then Branch activate 911. atorvastati 2018-05 Yes [id number] 40mg Take 1 [facility] n (LIPITOR) 0-29 tablet by ity of 40 mg 00:00: mouth at [place] tablet 00 bedtime. [facility] clopidogrel 2018-05 Yes [id number] 75mg Take 1 [facility] (PLAVIX) 75 0-29 tablet by ity of mg tablet 00:00: mouth [place] 00 daily. [facility] DULoxetine 2018-05 Yes [id number] 30mg Take 1 [facility] 30 mg 0-29 capsule by ity of capsule 00:00: mouth [place] 00 daily. [facility] pantoprazol 2018-05 Yes [id number] 40mg Take 1 [facility] e 40 mg EC 0-29 tablet by ity of tablet 00:00: mouth [place] 00 daily. [facility] potassium 2018-05 Yes [id number] 10meq Take 1 [facility] chloride 10 0-29 tablet by ity of mEq CR 00:00: mouth [place] tablet 00 daily. [facility] albuterol 2018-05 Yes [id number] 2{puff} Inhale 2 [facility] 90 0-29 Puffs ity of mcg/actuati 00:00: every 6 [place] inhaler 00 (six) Medical hours as Branch needed for Wheezing or Shortness of Breath. nitroglycer 2018-05 Yes [id number] 1 tab [facility] in 0.4 mg 0-29 q5min up ity of sublingual 00:00: to 3 doses [place] tablet 00 PRN chest Medical pain, then Branch activate 911. DULoxetine 2018-05 Yes [id number] 30mg Take 1 [facility] 30 mg 0-29 capsule by ity of capsule 00:00: mouth [place] 00 daily. [facility] pantoprazol 2018-05 Yes [id number] 40mg Take 1 [facility] e 40 mg EC 0-29 tablet by ity of tablet 00:00: mouth [place] 00 daily. [facility] potassium 2018-05 Yes [id number] 10meq Take 1 [facility] chloride 10 0-29 tablet by ity of mEq CR 00:00: mouth [place] tablet 00 daily. [facility] albuterol 2018-05 Yes [id number] 2{puff} Inhale 2 [facility] 90 0-29 Puffs ity of mcg/actuati 00:00: every 6 [place] on inhaler 00 (six) Medical hours as Branch needed for Wheezing or Shortness of Breath. nitroglycer 2018-05 Yes [id number] 1 tab [facility] in 0.4 mg 0-29 q5min up ity of sublingual 00:00: to 3 doses [place] tablet 00 PRN chest Medical pain, then Branch activate 911. DULoxetine 2018-05 Yes [id number] 30mg Take 1 [facility] 30 mg 0-29 capsule by ity of capsule 00:00: mouth [place] 00 daily. [facility] pantoprazol 2018-05 Yes [id number] 40mg Take 1 [facility] e 40 mg EC 0-29 tablet by ity of tablet 00:00: mouth [place] 00 daily. [facility] potassium 2018-05 Yes [id number] 10meq Take 1 [facility] n[facility] chloride 10 0-29 tablet by ity of mEq CR 00:00: mouth [place] tablet 00 daily. [facility] albuterol 2018-05 Yes [id number] 2{puff} Inhale 2 [facility] 90 0-29 Puffs ity of mcg/actuati 00:00: every 6 [place] inhaler 00 (six) Medical hours as Branch needed for Wheezing or Shortness of Breath. nitroglycer 2018-05 Yes [id number] 1 tab [facility] in 0.4 mg 0-29 q5min up ity of sublingual 00:00: to 3 doses [place] tablet 00 PRN chest Medical pain, then Branch activate 911. DULoxetine 2018-05 Yes [id number] 30mg Take 1 [facility] 30 mg 0-29 [...] pain, then Bran ch activate 911. albuterol 2018-05 2020- No [id number] 2{puff} Inhale 2 [facility] 90 0-29 12-19 Puffs ity of mcg/actuati 00:00: 00:00 every 6 [place] on inhaler 00 :00 (six) Medical hours as Branch needed for Wheezing or Shortness of Breath. albuterol 2018-05 2020- No [id number] 2{puff} Inhale 2 [facility] 90 0-29 12-19 Puffs ity of mcg/actuati 00:00: 00:00 every 6 [place] on inhaler 00 :00 (six) Medical hours as Branch needed for Wheezing or Shortness of Breath. pantoprazol 2018-05 2020- No [id number] 40mg Take 1 [facility] e 40 mg EC 0- 06-08 tablet by ity of tablet 00:00: 00:00 mouth [place] 00 :00 daily. [facility] potassium 2018-05 2020- No [id number] 10meq Take 1 [facility] chloride 10 0- 06-08 tablet by it y of mEq CR 00:00: 00:00 mouth [place] tablet 00 :00 daily. [facility] atorvastati 2018-05 2020- No [id number] 40mg Take 1 [facility] n (LIPITOR) 0- 03-20 tablet by it y of 40 mg 00:00: 00:00 mouth at [place] tablet 00 :00 bedtime. Medical [facility] clopidogrel 2018-05 2020- No [id number] 75mg Take 1 [facility] (PLAVIX) 75 0- [...] mouth ity o f tablet 15:12: daily. [place] 10 [facility] aspirin Yes 81mg Take 81 mg [facility] ers (ASPIRIN 9-09 by mouth ity of LOW DOSE) 15:12: daily. [place] 81 mg EC 10 Medical tablet Branch atorvastati Yes [id number] 40mg Take 1 [facility] n (LIPITOR) 7-05 tablet by ity of 40 mg 00:00: mouth at [place] tablet 00 bedtime. [facility] DULoxetine Yes [id number] 30mg Take 1 [facility] n[facility] 30 mg 7-05 capsule by ity of capsule 00:00: mouth [place] 00 daily. [facility] clopidogrel Yes [id number] 75mg Take 1 [facility] (PLAVIX) 75 7-05 tablet by ity of mg tablet 00:00: mouth [place] 00 daily. [facility] furosemide Yes [id number] 20mg Take 1 [facility] n[facility] (LASIX) 20 7-05 tablet by ity of mg tablet 00:00: mouth [place] 00 daily. [facility] isosorbide Yes [id number] 30mg Take 1 [facility] mononitrate 7-05 tablet by ity of 30 mg 24 hr 00:00: mouth [place] tablet 00 daily. [facility] metoprolol Yes [id number] 25mg Take 1 [facility] nivers tartrate 25 7-05 tablet by ity of mg tablet 00:00: mouth [place] 00 daily. [facility] fluconazole 2018- Yes [id number] 150mg Take 1 [facility] (DIFLUCAN) 7-05 tablet by ity of 150 mg 00:00: mouth [place] tablet 00 SEE-INSTRU Medical CTIONS. 1 Branch PO weekly/PRN yeast infection atorvastati Yes [id number] 40mg Take 1 [facility] n (LIPITOR) 7-05 tablet by ity of 40 mg 00:00: mouth at [place] tablet 00 bedtime. [facility] DULoxetine Yes [id number] 30mg Take 1 [facility] nivers 30 mg 7-05 capsule by ity of capsule 00:00: mouth [place] 00 daily. [facility] clopidogrel 2019- Yes [id number] 75mg Take 1 [facility] (PLAVIX) 75 7-05 tablet by ity of mg tablet 00:00: mouth [place] 00 daily. [facility] furosemide 2019- Yes [id number] 20mg Take 1 [facility] nivers (LASIX) 20 7-05 tablet by ity of mg tablet 00:00: mouth [place] 00 daily. [facility] isosorbide 2019 Yes [id number] 30mg Take 1 [facility] mononitrate 7-05 tablet by ity of 30 mg 24 hr 00:00: mouth [place] tablet 00 daily. [facility] metoprolol Yes [id number] 25mg Take 1 [facility] nivers tartrate 25 7-05 tablet by ity of mg tablet 00:00: mouth [place] 00 daily. [facility] fluconazole Yes [id number] 150mg Take 1 [facility] (DIFLUCAN) 7-05 tablet by ity of 150 mg 00:00: mouth [place] tablet 00 SEE-INSTRU Medical CTIONS. 1 Branch PO weekly/PRN yeast infection atorvastati Yes [id number] 40mg Take 1 [facility] n (LIPITOR) 7-05 tablet by ity of 40 mg 00:00: mouth at [place] tablet 00 bedtime. [facility] DULoxetine Yes [id number] 30mg Take 1 [facility] n[facility] 30 mg 7-05 capsule by ity of capsule 00:00: mouth [place] 00 daily. [facility] clopidogrel 2019- Yes [id number] 75mg Take 1 [facility] (PLAVIX) 75 7-05 tablet by ity of mg tablet 00:00: mouth [place] 00 daily. [facility] furosemide 2018- Yes [id number] 20mg Take 1 [facility] nivers (LASIX) 20 7-05 tablet by ity of mg tablet 00:00: mouth [place] 00 daily. [facility] isosorbide Yes [id number] 30mg Take 1 [facility] mononitrate 7-05 tablet by ity of 30 mg 24 hr 00:00: mouth [place] tablet 00 daily. [facility] metoprolol Yes [id number] 25mg Take 1 [facility] nivers tartrate 25 7-05 tablet by ity of mg tablet 00:00: mouth [place] 00 daily. [facility] fluconazole 2019- Yes [id number] 150mg Take 1 [facility] (DIFLUCAN) 7-05 tablet by ity of 150 mg 00:00: mouth [place] tablet 00 SEE-INSTRU Medical CTIONS. 1 Branch PO weekly/PRN yeast infection atorvastati Yes [id number] 40mg Take 1 [facility] n (LIPITOR) 7-05 tablet by ity of 40 mg 00:00: mouth at [place] tablet 00 bedtime. [facility] DULoxetine 2018- Yes [id number] 30mg Take 1 [facility] nivers 30 mg 7-05 capsule by ity of capsule 00:00: mouth [place] 00 daily. [facility] clopidogrel Yes [id number] 75mg Take 1 [facility] (PLAVIX) 75 7-05 tablet by ity of mg tablet 00:00: mouth [place] 00 daily. [facility] furosemide Yes [id number] 20mg Take 1 [facility] nivers (LASIX) 20 7-05 tablet by ity of mg tablet 00:00: mouth [place] 00 daily. [facility] isosorbide Yes [id number] 30mg Take 1 [facility] mononitrate 7-05 tablet by ity of 30 mg 24 hr 00:00: mouth [place] tablet 00 daily. [facility] metoprolol Yes [id number] 25mg Take 1 [facility] nivers tartrate 25 7-05 tablet by ity of mg tablet 00:00: mouth [place] 00 daily. [facility] fluconazole 2018- Yes [id number] 150mg Take 1 [facility] (DIFLUCAN) 7-05 tablet by ity of 150 mg 00:00: mouth [place] tablet 00 SEE-INSTRU Medical CTIONS. 1 Branch PO weekly/PRN yeast infection atorvastati 0 Yes [id number] 40mg Take 1 [facility] n (LIPITOR) 7-05 tablet by ity of 40 mg 00:00: mouth at [place] tablet 00 bedtime. [facility] DULoxetine 2018-0 Yes [id number] 30mg Take 1 [facility] nivers 30 mg 7-05 capsule by ity of capsule 00:00: mouth [place] 00 daily. [facility] clopidogrel 2018- Yes [id number] 75mg Take 1 [facility] (PLAVIX) 75 7-05 tablet by ity of mg tablet 00:00: mouth [place] 00 daily. [facility] furosemide 2018- Yes [id number] 20mg Take 1 [facility] nivers (LASIX) 20 7-05 tablet by ity of mg tablet 00:00: mouth [place] 00 daily. [facility] isosorbide 2019- Yes [id number] 30mg Take 1 [facility] mononitrate 7-05 tablet by ity of 30 mg 24 hr 00:00: mouth [place] tablet 00 daily. [facility] metoprolol 2019- Yes [id number] 25mg Take 1 U nivers tartrate 25 7-05 tablet by ity of mg tablet 00:00: mouth [place] 00 daily. [facility] fluconazole 2019- Yes [id number] 150mg Take 1 [facility] (DIFLUCAN) 7-05 tablet by ity of 150 mg 00:00: mouth [place] tablet 00 SEE-INSTRU Medical CTIONS. 1 Branch PO weekly/PRN yeast infection atorvastati Yes [id number] 40mg Take 1 [facility] n (LIPITOR) 7-05 tablet by ity of 40 mg 00:00: mouth at [place] tablet 00 bedtime. [facility] DULoxetine 2018- Yes [id number] 30mg Take 1 [facility] nivers 30 mg 7-05 capsule by [facility] capsule 00:00: mouth [place] 00 daily. [facility] clopidogrel 2019- Yes [id number] 75mg Take 1 [facility] (PLAVIX) 75 7-05 tablet by [facility] of mg tablet 00:00: mouth [place] 00 daily. [facility] furosemide 2019-0 Yes [id number] 20mg Take 1 [facility] (LASIX) 20 7-05 tablet by [facility] of mg tablet 00:00: mouth [place] 00 daily. [facility] isosorbide 2018- Yes [id number] 30mg Take 1 [facility] mononitrate 7-05 tablet by [facility] of 30 mg 24 hr 00:00: mouth [place] tablet 00 daily. [facility] metoprolol 2019 Yes [id number] 25mg Take 1 [facility] tartrate 25 7-05 tablet by [facility] of mg tablet 00:00: mouth [place] 00 daily. [facility] fluconazole 2019-0 Yes [id number] 150mg Take 1 [facility] (DIFLUCAN) 7-05 tablet by [facility] of 150 mg 00:00: mouth [place] tablet 00 SEE-INSTRU Medical CTIONS. 1 Branch PO weekly/PRN yeast infection atorvastati 2019- Yes [id number] 40mg Take 1 [facility] n (LIPITOR) 7-05 tablet by ity of 40 mg 00:00: mouth at [place] tablet 00 bedtime. Medical [facility] DULoxetine 2018- Yes [id number] 30mg Take 1 [facility] 30 mg 7-05 capsule by [facility] of capsule 00:00: mouth [place] 00 daily. [facility] clopidogrel 2019- Yes [id number] 75mg Take 1 [facility] (PLAVIX) 75 7-05 tablet by [facility] of mg tablet 00:00: mouth [place] 00 daily. [facility] furosemide 2019- Yes [id number] 20mg Take 1 [facility] (LASIX) 20 7-05 tablet by [facility] of mg tablet 00:00: mouth [place] 00 daily. [facility] isosorbide 2019 Yes [id number] 30mg Take 1 [facility] mononitrate 7-05 tablet by [facility]y of 30 mg 24 hr 00:00: mouth [place] tablet 00 daily. [facility] metoprolol Yes [id number] 25mg Take 1 [facility] tartrate 25 7-05 tablet by [facility] of mg tablet 00:00: mouth [place] 00 daily. [facility] fluconazole Yes [id number] 150mg Take 1 [facility] (DIFLUCAN) 7-05 tablet by it[facility] of 150 mg 00:00: mouth [place] tablet 00 SEE-INSTRU Medical CTIONS. 1 Branch PO weekly/PRN yeast infection atorvastati Yes [id number] 40mg Take 1 [facility] n (LIPITOR) 7-05 tablet by ity of 40 mg 00:00: mouth at [place] tablet 00 bedtime. [facility] DULoxetine Yes [id number] 30mg Take 1 [facility] 30 mg 7-05 capsule by [facility] of capsule 00:00: mouth [place] 00 daily. [facility] clopidogrel 2019- Yes [id number] 75mg Take 1 [facility] (PLAVIX) 75 7-05 tablet by [facility] of mg tablet 00:00: mouth [place] 00 daily. [facility] furosemide 2018- Yes [id number] 20mg Take 1 [facility] (LASIX) 20 7-05 tablet by [facility] of mg tablet 00:00: mouth [place] 00 daily. [facility] isosorbide Yes [id number] 30mg Take 1 [facility] mononitrate 7-05 tablet by [facility] of 30 mg 24 hr 00:00: mouth [place] tablet 00 daily. [facility] metoprolol Yes [id number] 25mg Take 1 [facility] tartrate 25 7-05 tablet by [facility] of mg tablet 00:00: mouth [place] 00 daily. [facility] fluconazole 2019- Yes [id number] 150mg Take 1 [facility] (DIFLUCAN) 7-05 tablet by [facility] of 150 mg 00:00: mouth [place] tablet 00 SEE-INSTRU Medical CTIONS. 1 Branch PO weekly/PRN yeast infection metoprolol Yes [id number] 25mg Take 1 [facility] tartrate 25 7-05 tablet by [facility]y of mg tablet 00:00: mouth [place] 00 daily. [facility] metoprolol Yes [id number] 25mg Take 1 [facility] tartrate 25 7-05 tablet by [facility] of mg tablet 00:00: mouth [place] 00 daily. [facility] metoprolol Yes [id number] 25mg Take 1 [facility] tartrate 25 7-05 tablet by [facility]y of mg tablet 00:00: mouth [place] 00 daily. [facility] metoprolol Yes [id number] 25mg Take 1 [facility] tartrate 25 7-05 tablet by ity of mg tablet 00:00: mouth [place] 00 daily. [facility] metoprolol Yes [id number] 25mg Take 1 [facility] tartrate 25 7-05 tablet by ity of mg tablet 00:00: mouth [place] 00 daily. [facility] metoprolol Yes [id number] 25mg Take 1 [facility] tartrate 25 7-05 tablet by ity of mg tablet 00:00: mouth [place] 00 daily. [facility] metoprolol Yes [id number] 25mg Take 1 [facility] tartrate 25 7-05 tablet by [facility] of mg tablet 00:00: mouth [place] 00 daily. [facility] metoprolol 2020- No [id number] 25mg Take 1 [facility] tartrate 25 7-05 03-20 tablet by it y of mg tablet 00:00: 00:00 mouth [place] 00 :00 daily. [facility] isosorbide 2020- No [id number] 30mg Take 1 [facility] mononitrate 7-05 03-09 tablet by it y of 30 mg 24 hr 00:00: 00:00 [place] 00 :00 daily. [facility] isosorbide 2020- No [id number] 30mg Take 1 [facility] mononitrate 7-05 03-09 tablet by it y of 30 mg 24 hr 00:00: 00:[place] 00 :00 daily. [facility] isosorbide 2019- No [id number] 30mg Take 1 [facility] mononitrate 7-05 03-09 [...] mouth ity of LOW DOSE) 18:18: daily. [place] 81 mg EC 24 Medical tablet Branch [...] mouth ity of LOW DOSE) 18:18: daily. [place] 81 mg EC 24 Medical tablet Branch [...] mouth ity of LOW DOSE) 18:18: daily. [place] 81 mg EC 24 Medical tablet Branch [...] EC 24 Medical tablet Branch phenazopyri Yes [id number] 200mg Take 1 [facility] dine 200 mg 6-02 tablet by ity of tablet 00:00: mouth 3 [place] 00 ([facility]) Medical times Branch daily. phenazopyri Yes [id number] 200mg Take 1 [facility] dine 200 mg 6-02 tablet by ity of tablet 00:00: mouth 3 [place] 00 ([facility]) Medical times Branch daily. phenazopyri Yes [id number] 200mg Take 1 [facility] dine 200 mg 6-02 tablet by ity of tablet 00:00: mouth 3 [place] 00 (three) Medical times Branch daily. phenazopyri Yes [id number] 200mg Take 1 [facility] dine 200 mg 6-02 tablet by ity of tablet 00:00: mouth 3 [place] 00 (three) Medical times Branch daily. phenazopyri Yes [id number] 200mg Take 1 [facility] dine 200 mg 6-02 tablet by ity of tablet 00:00: mouth 3 [place] 00 (three) Medical times Branch daily. phenazopyri Yes [id number] 200mg Take 1 [facility] dine 200 mg 6-02 tablet by ity of tablet 00:00: mouth 3 (three) Medical times Branch daily. phenazopyri 2018-0 Yes [id number] 200mg Take 1 [facility] dine 200 mg 6-02 tablet by ity of tablet 00:00: mouth 3 (three) Medical times Branch daily. phenazopyri 2018- Yes [id number] 200mg Take 1 [facility] dine 200 mg 6-02 tablet by ity of tablet 00:00: mouth 3 (three) Medical times Branch daily. phenazopyri Yes [id number] 200mg Take 1 [facility] dine 200 mg 6-02 tablet by ity of tablet 00:00: mouth 3 (three) Medical times Branch daily. phenazopyri 2018- Yes [id number] 200mg Take 1 [facility] dine 200 mg 6-02 tablet by ity of tablet 00:00: mouth 3 (three) Medical times Branch daily. phenazopyri Yes [id number] 200mg Take 1 [facility] dine 200 mg 6-02 tablet by ity of tablet 00:00: mouth (three) Medical times Branch daily. phenazopyri Yes [id number] 200mg Take 1 [facility] dine 200 mg 6-02 tablet by ity of tablet 00:00: mouth (three) Medical times Branch daily. phenazopyri 2018-0 Yes [id number] 200mg Take 1 [facility] dine 200 mg 6-02 tablet by ity of tablet 00:00: mouth 3 (three) Medical times Branch daily. phenazopyri 2018- Yes [id number] 200mg Take 1 [facility] dine 200 mg 6-02 tablet by ity of tablet 00:00: mouth 3 (three) Medical times Branch daily. phenazopyri 2018-0 Yes [id number] 200mg Take 1 [facility] dine 200 mg 6-02 tablet by ity of tablet 00:00: mouth 3 (three) Medical times Branch daily. phenazopyri 2018-0 Yes [id number] 200mg Take 1 [facility] dine 200 mg 6-02 tablet by ity of tablet 00:00: mouth 3 (three) Medical times Branch daily. phenazopyri 2018- Yes [id number] 200mg Take 1 [facility] dine 200 mg 6-02 tablet by ity of tablet 00:00: mouth 3 (three) Medical times Branch daily. phenazopyri 2019-0 Yes [id number] 200mg Take 1 [facility] dine 200 mg 6-02 tablet by ity of tablet 00:00: mouth 3 (three) Medical times Branch daily. phenazopyri 2019-0 Yes [id number] 200mg Take 1 [facility] dine 200 mg 6-02 tablet by ity of tablet 00:00: mouth (three) Medical times Branch daily. phenazopyri 2018-0 Yes [id number] 200mg Take 1 [facility] dine 200 mg 6-02 tablet by ity of tablet 00:00: mouth (three) Medical times Branch daily. phenazopyri 2018-0 Yes [id number] 200mg Take 1 [facility] dine 200 mg 6-02 tablet by ity of tablet 00:00: mouth (three) Medical times Branch daily. phenazopyri 2018-0 Yes [id number] 200mg Take 1 [facility] dine 200 mg 6-02 tablet by ity of tablet 00:00: mouth (three) Medical times Branch daily. phenazopyri 2018-0 Yes [id number] 200mg Take 1 [facility] dine 200 mg 6-02 tablet by ity of tablet 00:00: mouth (three) Medical times Branch daily. phenazopyri 2018-0 Yes [id number] 200mg Take 1 [facility] dine 200 mg 6-02 tablet by ity of tablet 00:00: mouth (three) Medical times Branch daily. phenazopyri 2018-0 Yes [id number] 200mg Take 1 [facility] dine 200 mg 6-02 tablet by ity of tablet 00:00: mouth (three) Medical times Branch daily. phenazopyri 2019-0 Yes [id number] 200mg Take 1 [facility] dine 200 mg 6-02 tablet by ity of tablet 00:00: mouth 3 (three) Medical times Branch daily. phenazopyri 2019-0 Yes [id number] 200mg Take 1 [facility] dine 200 mg 6-02 tablet by ity of tablet 00:00: mouth 3 (three) Medical times Branch daily. phenazopyri 2019-0 Yes [id number] 200mg Take 1 [facility] dine 200 mg 6-02 tablet by ity of tablet 00:00: mouth 3 [place] 00 (three) Medical times Branch daily. phenazopyri 2019-0 Yes [id number] 200mg Take 1 [facility] dine 200 mg 6-02 tablet by ity of tablet 00:00: mouth 3 [place] 00 (three) Medical times Branch daily. phenazopyri 2018-0 Yes [id number] 200mg Take 1 [facility] dine 200 mg 6-02 tablet by ity of tablet 00:00: mouth 3 [place] 00 (three) Medical times Branch daily. phenazopyri 2018-0 Yes [id number] 200mg Take 1 [facility] dine 200 mg 6-02 tablet by ity of tablet 00:00: mouth 3 [place] 00 (three) Medical times Branch daily. phenazopyri 2018-0 Yes [id number] 200mg Take 1 [facility] dine 200 mg 6-02 tablet by ity of tablet 00:00: mouth 3 [place] 00 (three) Medical times Branch daily. phenazopyri 2018- Yes [id number] 200mg Take 1 [facility] dine 200 mg 6-02 tablet by ity of tablet 00:00: mouth 3 [place] (three) Medical times Branch daily. phenazopyri 2018- Yes [id number] 200mg Take 1 [facility] dine 200 mg 6-02 tablet by ity of tablet 00:00: mouth 3 [place] (three) Medical times Branch daily. phenazopyri 2020- No [id number] 200mg Take 1 [facility] dine 200 mg 6-02 08-14 tablet by it y of tablet 00:00: 00:00 mouth 3 [place] 00 :00 (three) Medical times Branch daily. phenazopyri 2020- No [id number] 200mg Take 1 [facility] dine 200 mg 6-02 08-14 tablet by it y of tablet 00:00: 00:00 mouth 3 [place] 00 :00 (three) Medical times Branch daily. miSOPROStol 2018- Yes [id number] Take one [facility] 200 mcg 5-10 tablet the ity of tablet 00:00: night [place] 00 before Medical procedure, Branch take one table the morning of procedure. miSOPROStol 2018-0 Yes [id number] Take one [facility] 200 mcg 5-10 tablet the ity of tablet 00:00: night [place] 00 before Medical procedure, Branch take one table the morning of procedure. miSOPROStol 2018-0 Yes [id number] Take one [facility] 200 mcg 5-10 tablet the ity of tablet 00:00: night [place] 00 before Medical procedure, Branch take one table the morning of procedure. miSOPROStol 2018- Yes [id number] Take one [facility] 200 mcg 5-10 tablet the ity of tablet 00:00: night [place] 00 before Medical procedure, Branch take one table the morning of procedure. miSOPROStol 2018- Yes [id number] Take one [facility] 200 mcg 5-10 tablet the ity of tablet 00:00: night [place] 00 before Medical procedure, Branch take one table the morning of procedure. miSOPROStol Yes [id number] Take one [facility] 200 mcg 5-10 tablet the ity of tablet 00:00: night [place] 00 before Medical procedure, Branch take one table the morning of procedure. miSOPROStol 2019- No [id number] Take one [facility] 200 mcg 5-10 09-09 tablet the ity o f tablet 00:00: 00:00 night [place] 00 :00 before Medical procedure, Branch take one table the morning of procedure. miSOPROStol 2019- No [id number] Take one [facility] 200 mcg 5-10 09-09 tablet the ity o f tablet 00:00: 00:00 night [place] 00 :00 before Medical procedure, Branch take one table the morning of procedure. escitalopra Yes [id number] 10mg Take 1 [facility] m oxalate 4-30 tablet by ity o f (LEXAPRO) 00:00: mouth [place] 10 mg 00 daily. Medical tablet [place] escitalopra Yes [id number] 10mg Take 1 [facility] m oxalate 4-30 tablet by ity o f (LEXAPRO) 00:00: mouth [place] 10 mg 00 daily. Medical tablet [place] escitalopra Yes [id number] 10mg Take 1 [facility] m oxalate 4-30 tablet by ity o f (LEXAPRO) 00:00: mouth [place] 10 mg 00 daily. Medical tablet [place] escitalopra Yes [id number] 10mg Take 1 [facility] m oxalate 4-30 tablet by ity o f (LEXAPRO) 00:00: mouth [place] 10 mg 00 daily. Medical tablet [place] escitalopra Yes [id number] 10mg Take 1 [facility] m oxalate 4-30 tablet by ity o f (LEXAPRO) 00:00: mouth [place] 10 mg 00 daily. Medical tablet Branch escitalopra 2019- Yes [id number] 10mg Take 1 [facility] m oxalate 4-30 tablet by ity o f (LEXAPRO) 00:00: mouth [place] 10 mg 00 daily. Medical tablet Branch escitalopra 2018- 2019- No [id number] 10mg Take 1 [facility] m oxalate 4-30 - tablet by ity of (LEXAPRO) 00:00: 00:00 mouth [place] 10 mg 00 :00 daily. Medical tablet Branch escitalopra 2018- 2019- No [id number] 10mg Take 1 [facility] m oxalate 4-30 - tablet by ity of (LEXAPRO) 00:00: 00:00 mouth [place] 10 mg 00 :00 daily. Medical tablet Branch Nitrofurant 2018-0 Yes [id number] 100mg Take 1 [facility] oin&Nit. 4-25 capsule by ity o f Macrocryst 00:00: mouth [place] (MACROBID) 00 daily. Medical 100 mg Branch capsule Nitrofurant 2019-0 Yes [id number] 100mg Take 1 [facility] oin&Nit. 4-25 capsule by ity o f Macrocryst 00:00: mouth [place] (MACROBID) 00 daily. Medical 100 mg Branch capsule Nitrofurant 2018-0 Yes [id number] 100mg Take 1 [facility] oin&Nit. 4-25 capsule by ity o f Macrocryst 00:00: mouth [place] (MACROBID) 00 daily. Medical 100 mg Branch capsule Nitrofurant 2019-0 Yes [id number] 100mg Take 1 [facility] oin&Nit. 4-25 capsule by ity o f Macrocryst 00:00: mouth [place] (MACROBID) 00 daily. Medical 100 mg Branch capsule Nitrofurant 2019-0 Yes [id number] 100mg Take 1 [facility] oin&Nit. 4-25 capsule by ity o f Macrocryst 00:00: mouth [place] (MACROBID) 00 daily. Medical 100 mg Branch capsule Nitrofurant 2019-0 Yes [id number] 100mg Take 1 [facility] oin&Nit. 4-25 capsule by ity o f Macrocryst 00:00: mouth [place] (MACROBID) 00 daily. Medical 100 mg Branch capsule Nitrofurant 2019-0 Yes [id number] 100mg Take 1 [facility] oin&Nit. 4-25 capsule by ity o f Macrocryst 00:00: mouth [place] (MACROBID) 00 daily. Medical 100 mg Branch capsule Nitrofurant 2019-0 Yes [id number] 100mg Take 1 [facility] oin&Nit. 4-25 capsule by ity o f Macrocryst 00:00: mouth [place] (MACROBID) 00 daily. Medical 100 mg Branch capsule Nitrofurant 2019-0 Yes [id number] 100mg Take 1 [facility] oin&Nit. 4-25 capsule by ity o f Macrocryst 00:00: mouth [place] (MACROBID) 00 daily. Medical 100 mg Branch capsule Nitrofurant 2019-0 Yes [id number] 100mg Take 1 [facility] oin&Nit. 4-25 capsule by ity o f Macrocryst 00:00: mouth [place] (MACROBID) 00 daily. Medical 100 mg Branch capsule Nitrofurant 2019-0 Yes [id number] 100mg Take 1 [facility] oin&Nit. 4-25 capsule by ity o f Macrocryst 00:00: mouth [place] (MACROBID) 00 daily. Medical 100 mg Branch capsule Nitrofurant 2019-0 Yes [id number] 100mg Take 1 [facility] oin&Nit. 4-25 capsule by ity o f Macrocryst 00:00: mouth [place] (MACROBID) 00 daily. Medical 100 mg Branch capsule Nitrofurant 2019-0 Yes 100mg Take 1 [facility] oin&Nit. 4-25 capsule by ity o f Macrocryst 00:00: mouth [place] (MACROBID) 00 daily. Medical 100 mg Branch capsule Nitrofurant 2019-0 Yes [id number] 100mg Take 1 [facility] oin&Nit. 4-25 capsule by ity o f Macrocryst 00:00: mouth [place] (MACROBID) 00 daily. Medical 100 mg Branch capsule Nitrofurant 2019-0 Yes [id number] 100mg Take 1 [facility] oin&Nit. 4-25 capsule by ity o f Macrocryst 00:00: mouth [place] (MACROBID) 00 daily. Medical 100 mg Branch capsule Nitrofurant 2019-0 Yes [id number] 100mg Take 1 [facility] oin&Nit. 4-25 capsule by ity o f Macrocryst 00:00: mouth [place] (MACROBID) 00 daily. Medical 100 mg Branch capsule Nitrofurant 2019-0 Yes [id number] 100mg Take 1 [facility] oin&Nit. 4-25 capsule [...] 100 mg Branch capsule Nitrofurant 2018-0 Yes 100mg Take 1 [facility] oin&Nit. 4-25 capsule by ity o f Macrocryst 00:00: mouth [place] (MACROBID) 00 daily. Medical 100 mg Branch capsule Nitrofurant 2018-0 Yes 100mg Take 1 [facility] oin&Nit. 4-25 capsule by ity o f Macrocryst 00:00: mouth [place] (MACROBID) 00 daily. Medical 100 mg Branch capsule Nitrofurant 2018-0 Yes 100mg Take 1 [facility] oin&Nit. 4-25 [...] 100 mg Branch capsule Nitrofurant 2019-0 Yes [id number] 100mg Take 1 [facility] oin&Nit. 4-25 capsule by ity o f Macrocryst 00:00: mouth [place] (MACROBID) 00 daily. Medical 100 mg Branch capsule Nitrofurant 2019-0 Yes [id number] 100mg Take 1 [facility] oin&Nit. 4-25 capsule [...] mg Branch capsule Nitrofurant 2019-0 2020- No [id number] 100mg Take 1 [facility] oin&Nit. 4-25 08-14 capsule by ity of Macrocryst 00:00: 00:00 mouth [place] (MACROBID) 00 :00 daily. Medical 100 mg Branch capsule Nitrofurant 2019-0 2020- No [id number] 100mg Take 1 [facility] oin&Nit. 4-25 08-14 capsule by ity of Macrocryst 00:00: 00:00 mouth [place] (MACROBID) 00 :00 daily. Medical 100 mg Branch capsule levoFLOXaci 2019-0 Yes Univer s n 500 mg 4-23 ity of tablet 00:00: [place] 00 Medical Branch sulfamethox 2019-0 Yes Univer s azole-trime 4-23 ity of thoprim 00:00: [place] 800-160 mg 00 Medical per tablet Branch levoFLOXaci 2019-0 Yes Univer s n 500 mg 4-23 ity of tablet 00:00: [place] 00 Medical Branch sulfamethox 2019-0 Yes Univer s azole-trime 4-23 ity of thoprim 00:00: [place] 800-160 mg 00 Medical per tablet Branch levoFLOXaci 2019-0 Yes Univer s n 500 mg 4-23 ity of tablet 00:00: [place] 00 Medical Branch sulfamethox 2019-0 Yes Univer s azole-trime 4-23 ity of thoprim 00:00: [place] 800-160 mg 00 Medical per tablet Branch levoFLOXaci 2019-0 Yes Univer s n 500 mg 4-23 ity of tablet 00:00: [place] 00 Medical Branch sulfamethox 2019-0 Yes Univer s azole-trime 4-23 ity of thoprim 00:00: [place] 800-160 mg 00 Medical per tablet Branch levoFLOXaci 2019-0 Yes Univer s n 500 mg 4-23 ity of tablet 00:00: [place] 00 Medical Branch sulfamethox 2019-0 Yes Univer s azole-trime 4-23 ity of thoprim 00:00: [place] 800-160 mg 00 Medical per tablet Branch levoFLOXaci 2019-0 Yes Univer s n 500 mg 4-23 ity of tablet 00:00: [place] 00 Medical Branch sulfamethox 2019-0 Yes Univer [...] No Unive rs n 500 mg 4-23 09-09 ity of tablet 00:00: 00:00 [place] 00 :00 Medical Branch levoFLOXaci 2019-0 2019- No Unive rs n 500 mg 09-18 ity of tablet 00:00: 00:00 [place] 00 :00 Medical Branch levETIRAcet 2019-0 Yes Univer s am 500 mg 4-06 ity of tablet 00:00: [place] 00 Medical Branch levETIRAcet 2019-0 Yes Univer s am 500 mg 4-06 ity of tablet 00:00: [place] 00 Medical Branch levETIRAcet 2019-0 Yes Univer s am 500 mg 4-06 ity of tablet 00:00: [place] [id number] Medical Branch levETIRAcet 2019-0 Yes Univer s am 500 mg 4-06 ity of tablet 00:00: [place] 00 Medical Branch levETIRAcet 2019-0 Yes Univer s am 500 mg 4-06 ity of tablet 00:00: [place] 00 Medical Branch levETIRAcet 2019-0 Yes Univer s am 500 mg 4-06 ity of tablet 00:00: [place] 00 Medical Branch levETIRAcet 2019-0 Yes Univer s am 500 mg 4-06 ity of tablet 00:00: [place] 00 Medical Branch levETIRAcet 2019-0 Yes Univer s am 500 mg 4-06 ity of tablet 00:00: [place] 00 Medical Branch levETIRAcet 2019-0 Yes Univer s am 500 mg 4-06 ity of tablet 00:00: [place] 00 Medical Branch levETIRAcet 2019-0 Yes Univer s am 500 mg 4-06 ity of tablet 00:00: [place] 00 Medical Branch levETIRAcet 2019-0 Yes Univer s am 500 mg 4-06 ity of tablet 00:00: [place] 00 Medical Branch levETIRAcet 2019-0 Yes Univer s am 500 mg 4-06 ity of tablet 00:00: [place] 00 Medical Branch levETIRAcet 2019-0 Yes Univer s am 500 mg 4-06 ity of tablet 00:00: [place] 00 Medical Branch levETIRAcet 2019-0 Yes Univer s am 500 mg 4-06 ity of tablet 00:00: [place] 00 Medical Branch levETIRAcet 2019-0 Yes Univer [...] 500 mg 4-06 ity of tablet 00:00: [place] 00 Medical Branch levETIRAcet 2019-0 Yes Univer s am 500 mg 4-06 ity of tablet 00:00: [place] 00 Medical Branch levETIRAcet 2019-0 Yes Univer s am 500 mg 4-06 ity of tablet 00:00: [place] 00 Medical Branch levETIRAcet 2019-0 Yes Univer s am 500 mg 4-06 ity of tablet 00:00: [place] 00 Medical Branch levETIRAcet 2019-0 Yes Univer s am 500 mg 4-06 ity of tablet 00:00: [place] 00 Medical Branch levETIRAcet 2019-0 Yes Univer s am 500 mg 4-06 ity of tablet 00:00: [place] 00 Medical Branch levETIRAcet 2019-0 Yes Univer s am 500 mg 4-06 ity of tablet 00:00: [place] 00 Medical Branch levETIRAcet 2019-0 Yes Univer s am 500 mg 4-06 ity of tablet 00:00: [place] 00 Medical Branch levETIRAcet 2019-0 Yes Univer s am 500 mg 4-06 ity of tablet 00:00: [place] 00 Medical Branch levETIRAcet 2019-0 Yes Univer s am 500 mg 4-06 ity of tablet 00:00: [place] 00 Medical Branch levETIRAcet 2019-0 Yes Univer s am 500 mg 4-06 ity of tablet 00:00: [place] 00 Medical Branch levETIRAcet 2019-0 2020- No Unive rs am 500 mg 09-01-14 ity of tablet 00:00: 00:00 [place] 00 :00 Medical Branch levETIRAcet 2019-0 2020- No Unive rs am 500 mg 4- 08-14 ity of tablet 00:00: 00:00 [place] 00 :00 Medical Branch gabapentin 2019-0 Yes [id number] 800mg Take 1 [facility] 800 mg 4-05 tablet by ity of tablet 00:00: mouth 3 (three) Medical times Branch daily. metFORMIN 2019-0 Yes 1000mg Take 2 [facility] ers 500 mg 4-05 tablets by ity of tablet 00:00: mouth 2 (two) Medical times Branch daily with meals. You can do two pills in the morning and one in the evening. gabapentin 2019-0 Yes [id number] 800mg Take 1 [facility] 800 mg 4-05 tablet by ity of tablet 00:00: mouth 3 (three) Medical times Branch daily. metFORMIN 2019-0 Yes 1000mg Take 2 [facility] ers 500 mg 4-05 tablets by ity of tablet 00:00: mouth (two) Medical times Branch daily with meals. You can do two pills in the morning and one in the evening. gabapentin 2019-0 Yes [id number] 800mg Take 1 [facility] 800 mg 4-05 tablet by ity of tablet 00:00: mouth 3 (three) Medical times Branch daily. metFORMIN 2019-0 Yes 1000mg Take 2 [facility] ers 500 mg 4-05 tablets by ity of tablet 00:00: mouth (two) Medical times Branch daily with meals. You can do two pills in the morning and one in the evening. gabapentin 2019-0 Yes [id number] 800mg Take 1 [facility] 800 mg 4-05 [...] one in the evening. gabapentin 2019-0 Yes [id number] 800mg Take 1 [facility] 800 mg 4-05 [...] injection breakfast and dinner. gabapentin 2019-0 Yes [id number] 800mg Take 1 [facility] 800 mg 4-05 [...] injection breakfast and dinner. gabapentin 2019-0 Yes [id number] 800mg Take 1 [facility] 800 mg 4-05 [...] injection breakfast and dinner. gabapentin 2019-0 Yes [id number] 800mg Take 1 [facility] 800 mg 4-05 [...] injection breakfast and dinner. gabapentin 2019-0 Yes [id number] 800mg Take 1 [facility] 800 mg 4-05 [...] injection breakfast and dinner. gabapentin 2019-0 Yes [id number] 800mg Take 1 [facility] 800 mg 4-05 [...] injection breakfast and dinner. gabapentin 2019-0 Yes [id number] 800mg Take 1 [facility] 800 mg 4-05 [...] injection breakfast and dinner. gabapentin 2019-0 Yes [id number] 800mg Take 1 [facility] 800 mg 4-05 [...] injection breakfast and dinner. gabapentin 2019-0 Yes [id number] 800mg Take 1 [facility] 800 mg 4-05 tablet by ity of tablet 00:00: mouth (three) Medical times Branch daily. metFORMIN 2019-0 Yes 1000mg Take 2 [facility] ers 500 mg 4-05 tablets by ity of tablet 00:00: mouth (two) Medical times Branch daily with meals. You can do two pills in the morning and one in the evening. gabapentin 2019-0 Yes [id number] 800mg Take 1 [facility] 800 mg 4-05 tablet by ity of tablet 00:00: mouth (three) Medical times Branch daily. metFORMIN 2019-0 Yes 1000mg Take 2 [facility] ers 500 mg 4-05 tablets by ity of tablet 00:00: mouth (two) Medical times Branch daily with meals. You can do two pills in the morning and one in the evening. gabapentin 2019-0 Yes [id number] 800mg Take 1 [facility] 800 mg 4-05 tablet by ity of tablet 00:00: mouth (three) Medical times Branch daily. metFORMIN 2019-0 Yes 1000mg Take 2 [facility] ers 500 mg 4-05 tablets by ity of tablet 00:00: mouth (two) Medical times Branch daily with meals. You can do two pills in the morning and one in the evening. gabapentin 2019-0 Yes [id number] 800mg Take 1 [facility] 800 mg 4-05 tablet by ity of tablet 00:00: mouth (three) Medical times Branch daily. metFORMIN 2019-0 Yes 1000mg Take 2 [facility] ers 500 mg 4-05 tablets by ity of tablet 00:00: mouth (two) Medical times Branch daily with meals. You can do two pills in the morning and one in the evening. gabapentin 2019-0 Yes [id number] 800mg Take 1 [facility] 800 mg 4-05 tablet by ity of tablet 00:00: mouth 3 (three) Medical times Branch daily. metFORMIN 2019-0 Yes 1000mg Take 2 Univ ers 500 mg 4-05 tablets by ity of tablet 00:00: mouth (two) Medical times Branch daily with meals. You can do two pills in the morning and one in the evening. gabapentin 2019-0 Yes [id number] 800mg Take 1 [facility] 800 mg 4-05 tablet by ity of tablet 00:00: mouth (three) Medical times Branch daily. metFORMIN 2019-0 Yes 1000mg Take 2 Univ ers 500 mg 4-05 tablets by ity of tablet 00:00: mouth (two) Medical times Branch daily with meals. You can do two pills in the morning and one in the evening. gabapentin 2019-0 Yes [id number] 800mg Take 1 [facility] 800 mg 4-05 tablet by ity of tablet 00:00: mouth (three) Medical times Branch daily. metFORMIN 2019-0 Yes 1000mg Take 2 [facility] ers 500 mg 4-05 tablets by ity of tablet 00:00: mouth (two) Medical times Branch daily with meals. You can do two pills in the morning and one in the evening. gabapentin 2019-0 Yes [id number] 800mg Take 1 [facility] 800 mg 4-05 tablet by ity of tablet 00:00: mouth (three) Medical times Branch daily. metFORMIN 2019-0 Yes 1000mg Take 2 [facility] ers 500 mg 4-05 tablets by ity of tablet 00:00: mouth (two) Medical times Branch daily with meals. You can do two pills in the morning and one in the evening. gabapentin 2019-0 Yes [id number] 800mg Take 1 [facility] 800 mg 4-05 tablet by ity of tablet 00:00: mouth (three) Medical times Branch daily. metFORMIN 2019-0 Yes 1000mg Take 2 [facility] ers 500 mg 4-05 tablets by ity of tablet 00:00: mouth (two) Medical times Branch daily with meals. You can do two pills in the morning and one in the evening. gabapentin 2019-0 Yes [id number] 800mg Take 1 [facility] 800 mg 4-05 [...] one in the evening. gabapentin 2020- No [id number] 800mg Take 1 [facility] 800 mg 4-05 05-05 tablet by ity of tablet 00:00: 00:00 mouth 3 [place] 00 :00 (three) Medical times Branch daily. gabapentin 2018- 2020- No [id number] 800mg Take 1 [facility] 800 mg 4-05 05-05 tablet by ity of tablet 00:00: 00:00 mouth 3 [place] 00 :00 (three) Medical times Branch daily. gabapentin 2020- No [id number] 800mg Take 1 [facility] 800 mg 4-05 05-05 tablet by ity of tablet 00:00: 00:00 mouth 3 [place] 00 :00 (three) Medical times Branch daily. [...] Medical tablet times Branch daily. Insulin Yes [id number] Use as Uni vers Syringe-Nee 3-30 directed ity of dle U-100 00:00: [place] (INSULIN 00 Medical SYRINGE) 1 Branch mL 30 gauge x 5/16 Syrg Insulin Yes [id number] Use as Uni vers Syringe-Nee 3-30 directed ity of dle U-100 00:00: [place] (INSULIN 00 Medical SYRINGE) 1 Branch mL 30 gauge x 5/16 Syrg Insulin 2017-0 Yes [id number] Use as Uni vers Syringe-Nee 3-30 directed ity of dle U-100 00:00: [place] (INSULIN 00 Medical SYRINGE) 1 Branch mL 30 gauge x 5/16 Syrg Insulin 2017-0 Yes [id number] Use as Uni vers Syringe-Nee 3-30 directed ity of dle U-100 00:00: [place] (INSULIN 00 Medical SYRINGE) 1 Branch mL 30 gauge x 5/16 Syrg Insulin 2017-0 Yes [id number] Use as Uni vers Syringe-Nee 3-30 directed ity of dle U-100 00:00: [place] (INSULIN 00 Medical SYRINGE) 1 Branch mL 30 gauge x 5/16 Syrg Insulin 2018-0 Yes [id number] Use as Uni vers Syringe-Nee 3-30 directed ity of dle U-100 00:00: [place] (INSULIN 00 Medical SYRINGE) 1 Branch mL 30 gauge x 5/16 Syrg Insulin 2018-0 Yes [id number] Use as Uni vers Syringe-Nee 3-30 directed ity of dle U-100 00:00: [place] (INSULIN 00 Medical SYRINGE) 1 Branch mL 30 gauge x 5/16 Syrg Insulin 2018-0 Yes [id number] Use as Uni vers Syringe-Nee 3-30 directed ity of dle U-100 00:00: [place] (INSULIN 00 Medical SYRINGE) 1 Branch mL 30 gauge x 5/16 Syrg Insulin 2017-0 Yes [id number] Use as Uni vers Syringe-Nee 3-30 directed ity of dle U-100 00:00: [place] (INSULIN 00 Medical SYRINGE) 1 Branch mL 30 gauge x 5/16 Syrg Insulin 2017-0 Yes [id number] Use as Uni vers Syringe-Nee 3-30 directed ity of dle U-100 00:00: [place] (INSULIN 00 Medical SYRINGE) 1 Branch mL 30 gauge x 5/16 Syrg Insulin 2017-0 Yes [id number] Use as Uni vers Syringe-Nee 3-30 directed ity of dle U-100 00:00: [place] (INSULIN 00 Medical SYRINGE) 1 Branch mL 30 gauge x 5/16 Syrg Insulin 2017-0 Yes [id number] Use as Uni vers Syringe-Nee 3-30 directed ity of dle U-100 00:00: [place] (INSULIN 00 Medical SYRINGE) 1 Branch mL 30 gauge x 5/16 Syrg Insulin 2017-0 Yes [id number] Use as Uni vers Syringe-Nee 3-30 directed ity of dle U-100 00:00: [place] (INSULIN 00 Medical SYRINGE) 1 Branch mL 30 gauge x 5/16 Syrg Insulin 2018-0 Yes [id number] Use as Uni vers Syringe-Nee 3-30 directed ity of dle U-100 00:00: [place] (INSULIN 00 Medical SYRINGE) 1 Branch mL 30 gauge x 5/16 Syrg Insulin 2018-0 Yes [id number] Use as Uni vers Syringe-Nee 3-30 directed ity of dle U-100 00:00: [place] (INSULIN 00 Medical SYRINGE) 1 Branch mL 30 gauge x 5/16 Syrg Insulin 2018-0 Yes [id number] Use as Uni vers Syringe-Nee 3-30 directed ity of dle U-100 00:00: [place] (INSULIN 00 Medical SYRINGE) 1 Branch mL 30 gauge x 5/16 Syrg Insulin 2018-0 Yes [id number] Use as Uni vers Syringe-Nee 3-30 directed ity of dle U-100 00:00: [place] (INSULIN 00 Medical SYRINGE) 1 Branch mL 30 gauge x 5/16 Syrg Insulin 2018-0 Yes [id number] Use as Uni vers Syringe-Nee 3-30 directed ity of dle U-100 00:00: [place] (INSULIN 00 Medical SYRINGE) 1 Branch mL 30 gauge x 5/16 Syrg Insulin 2017-0 Yes [id number] Use as Uni vers Syringe-Nee 3-30 directed ity of dle U-100 00:00: [place] (INSULIN 00 Medical SYRINGE) 1 Branch mL 30 gauge x 5/16 Syrg Insulin 2017-0 Yes [id number] Use as Uni vers Syringe-Nee 3-30 directed ity of dle U-100 00:00: [place] (INSULIN 00 Medical SYRINGE) 1 Branch mL 30 gauge x 5/16 Syrg Insulin 2017-0 Yes [id number] Use as Uni vers Syringe-Nee 3-30 directed ity of dle U-100 00:00: [place] (INSULIN 00 Medical SYRINGE) 1 Branch mL 30 gauge x 5/16 Syrg Insulin 2018-0 Yes [id number] Use as Uni vers Syringe-Nee 3-30 directed ity of dle U-100 00:00: [place] (INSULIN 00 Medical SYRINGE) 1 Branch mL 30 gauge x 5/16 Syrg Insulin 2018-0 Yes [id number] Use as Uni vers Syringe-Nee 3-30 directed ity of dle U-100 00:00: [place] (INSULIN 00 Medical SYRINGE) 1 Branch mL 30 gauge x 5/16 Syrg Insulin 2018-0 Yes [id number] Use as Uni vers Syringe-Nee 3-30 directed ity of dle U-100 00:00: [place] (INSULIN 00 Medical SYRINGE) 1 Branch mL 30 gauge x 5/16 Syrg Insulin 2018-0 Yes [id number] Use as Uni vers Syringe-Nee 3-30 directed ity of dle U-100 00:00: [place] (INSULIN 00 Medical SYRINGE) 1 Branch mL 30 gauge x 5/16 Syrg Insulin 2018-0 Yes [id number] Use as Uni vers Syringe-Nee 3-30 directed ity of dle U-100 00:00: [place] (INSULIN 00 Medical SYRINGE) 1 Branch mL 30 gauge x 5/16 Syrg Insulin 2018-0 Yes [id number] Use as Uni vers Syringe-Nee 3-30 directed ity of dle U-100 00:00: [place] (INSULIN 00 Medical SYRINGE) 1 Branch mL 30 gauge x 5/16 Syrg Insulin 2018-0 Yes [id number] Use as Uni vers Syringe-Nee 3-30 directed ity of dle U-100 00:00: [place] (INSULIN 00 Medical SYRINGE) 1 Branch mL 30 gauge x 5/16 Syrg Insulin 2017-0 Yes [id number] Use as Uni vers Syringe-Nee 3-30 directed ity of dle U-100 00:00: [place] (INSULIN 00 Medical SYRINGE) 1 Branch mL 30 gauge x 5/16 Syrg Insulin 2017-0 Yes [id number] Use as Uni vers Syringe-Nee 3-30 directed ity of dle U-100 00:00: [place] (INSULIN 00 Medical SYRINGE) 1 Branch mL 30 gauge x 5/16 Syrg Insulin 2017-0 Yes [id number] Use as Uni vers Syringe-Nee 3-30 directed ity of dle U-100 00:00: [place] (INSULIN 00 Medical SYRINGE) 1 Branch mL 30 gauge x 5/16 Syrg Insulin 2017-0 Yes [id number] Use as Uni vers Syringe-Nee 3-30 directed ity of dle U-100 00:00: [place] (INSULIN 00 Medical SYRINGE) 1 Branch mL 30 gauge x 5/16 Syrg Insulin 2018-0 Yes [id number] Use as Uni vers Syringe-Nee 3-30 directed ity of dle U-100 00:00: [place] (INSULIN 00 Medical SYRINGE) 1 Branch mL 30 gauge x 5/16 Syrg Insulin 2018-0 Yes [id number] Use as Uni vers Syringe-Nee 3-30 directed ity of dle U-100 00:00: [place] (INSULIN 00 Medical SYRINGE) 1 Branch mL 30 gauge x 5/16 Syrg Insulin 2017-0 2020- No [id number] Use as Un [place]i Syringe-Nee 3-30 14 directed ity of dle U-100 00:00: 00:00 [place] (INSULIN 00 :00 Medical SYRINGE) 1 Branch mL 30 gauge x 5/16 Syrg Insulin 2018-0 2020- No [id number] Use as Un cali Syringe-Nee 08-25 08-14 directed ity of dle U-100 00:00: 00:00 [place] (INSULIN 00 :00 Medical SYRINGE) 1 Branch mL 30 gauge x 10/11 Syrg Atorvastati Atorvastati Yes [place] [address] [facility] Calcium n Calcium [facility] Lexapro Lexapro Yes Dada [address] [facility] Metoprolol Metoprolol Yes Dada [address] [facility] [address] Tartrate Tartrate Horan with food [facility] Ranexa Ranexa Yes [facility] Insulin Insulin Yes Dada [address] [facility] [address] Aspart Prot Aspart Prot Horan BID [facility] - & Aspart & Aspart [facility] Aspirin Aspirin Yes Dada [address] [facility] Gabapentin Gabapentin Yes Dada [address] [facility] Furosemide Furosemide Yes Dada [address] [facility] Duloxetine Duloxetine Yes Dada [address] [facility] [address] HCl HCl [facility] Xanax Xanax Yes [place] [address] [facility] Clopidogrel Clopidogrel Yes [place]ada [address] [facility] [address] Bisulfate Bisulfate [facility] Metformin Metformin Yes Dada [address] [facility] [address] HCl HCl [facility] with meals [facility] Pantoprazol Pantoprazol Yes Dada [address] [facility] [address] e Sodium e Sodium [facility] Klor-Con Klor-Con Yes Dada [address] M10 M10 [facility] with food [facility] Duloxetine Duloxetine Yes Dada [address] [facility] [address] HCl HCl [facility] Levetiracet Levetiracet Yes [place]ada [address] [facility] [address] am am [facility] [place] [address] [facility] [address] [facility] as needed [facility] Lexapro Lexapro Yes Dada [address] [facility] Atorvastati Atorvastati Yes Dada [address] [facility] [address] n Calcium n Calcium [facility] Clopidogrel Clopidogrel Yes Dada [address] [facility] [address] Bisulfate Bisulfate [facility] Furosemide Furosemide Yes Dada [address] [facility] Immunizations Ordered Filled Immunization Date Status Comments [facility] Immunization Name Name SARS-COV-2 COVID-19 2021-01-17 Completed Unive rsity of PFIZER VACCINE 00:00:00 [facility] SARS-COV-2 COVID-19 2021-01-17 Completed Unive rsity of PFIZER VACCINE 00:00:00 [facility] SARS-COV-2 COVID-19 2021-01-17 Completed Unive rsity of PFIZER VACCINE 00:00:00 [facility] SARS-COV-2 COVID-19 2021-01-17 Completed Unive rsity of PFIZER VACCINE 00:00:00 [facility] SARS-COV-2 COVID-19 2021-01-17 Completed Unive rsity of PFIZER VACCINE 00:00:00 [facility] Vital Signs Vital Name Observation Time Observation Value Comments Source Systolic blood 2021-02-12 19:25:00 123 mm[Hg] Univer sity of pressure [facility] Diastolic blood 2021-02-12 19:25:00 80 mm[Hg] Unive rsity of pressure [facility] Heart rate 2021-02-12 19:25:00 87 /min [facility] Body temperature 2021-02-12 19:25:00 36.83 Lucero [facility] Respiratory rate 2021-02-12 19:25:00 16 /min [facility] Body height 2021-02-12 19:25:00 162.6 cm [facility] Body weight 2021-02-12 19:25:00 64.864 kg [facility] BMI 2021-02-12 19:25:00 24.55 kg/m2 [facility] Oxygen saturation in 2021-02-12 19:25:00 99 /min [facility] Arterial blood by [facility] Pulse oximetry Branch Systolic blood 2021-02-12 18:15:00 108 mm[Hg] Univer sity of pressure [place] [facility] Diastolic blood 2021-02-12 18:15:00 73 mm[Hg] Unive rsity of pressure [place] [facility] Heart rate 2021-02-12 18:15:00 59 /min [facility] [place] [facility] Respiratory rate 2021-02-12 18:15:00 18 /min Univ ersity [facility] [place] [facility] Body height 2021-02-12 18:15:00 162.6 cm [facility] [place] [facility] Body weight 2021-02-12 18:15:00 64.864 kg [facility] [place] [facility] BMI 2021-02-12 18:15:00 24.55 kg/m2 [facility] [place] [facility] Systolic blood 2021-01-17 17:22:00 129 mm[Hg] Univer sity of pressure [place] [facility] Diastolic blood 2021-01-17 17:22:00 83 mm[Hg] Unive rsity of pressure [place] [facility] Heart rate 2021-01-17 17:22:00 85 /min [facility] [place] [facility] Body temperature 2021-01-17 17:22:00 36.06 Lucero [facility] [place] [facility] Respiratory rate 2021-01-17 17:22:00 16 /min Univ ersity [facility] [place] [facility] Oxygen saturation in 2021-01-17 17:22:00 95 /min [facility] Arterial blood by [facility] Pulse oximetry Branch Body height 2021-01-15 21:03:00 162.6 cm [facility] [place] [facility] Body weight 2021-01-15 21:03:00 62.46 kg [facility] [place] [facility] BMI 2021-01-15 21:03:00 23.64 kg/m2 [facility] [place] [facility] Systolic blood 2021-01-15 19:31:00 109 mm[Hg] Univer sity of pressure [place] [facility] Diastolic blood 2021-01-15 19:31:00 71 mm[Hg] Unive rsity of pressure [place] [facility] Heart rate 2021-01-15 19:31:00 88 /min [facility] [place] [facility] Respiratory rate 2021-01-15 19:31:00 19 /min Univ ersity [facility] [place] [facility] Body height 2021-01-15 19:31:00 162.6 cm [facility] [place] [facility] Body weight 2021-01-15 19:31:00 62.143 kg [facility] [place] [facility] BMI 2021-01-15 19:31:00 23.52 kg/m2 [facility] [place] [facility] Oxygen saturation in 2021-01-15 19:31:00 93 /min [facility] Arterial blood by [facility] Pulse oximetry Branch Systolic blood 2021-01-01 16:37:00 118 mm[Hg] Univer sity of pressure [place] [facility] Diastolic blood 2021-01-01 16:37:00 77 mm[Hg] Unive rsity of pressure [place] [facility] Heart rate 2021-01-01 16:37:00 102 /min [facility] [place] [facility] Body weight 2021-01-01 16:37:00 61.689 kg [facility] [place] [facility] BMI 2021-01-01 16:37:00 23.34 kg/m2 [facility] [place] [facility] Oxygen saturation in 2021-01-01 16:37:00 100 /min [facility] Arterial blood by [facility] Pulse oximetry Branch Systolic blood 2020-12-01 15:53:00 123 mm[Hg] Univer sity of pressure [place] [facility] Diastolic blood 2020-12-01 15:53:00 69 mm[Hg] Unive rsity of pressure [place] [facility] Heart rate 2020-12-01 15:53:00 90 /min [facility] [place] [facility] Body temperature 2020-12-01 15:53:00 36.22 Lucero [facility] [place] [facility] Respiratory rate 2020-12-01 15:53:00 16 /min Univ ers[facility] [place] [facility] Oxygen saturation in 2020-12-01 15:53:00 97 /min [facility] Arterial blood by [facility] Pulse oximetry Branch Body height 2020-11-30 14:35:00 162.6 cm [facility] [place] [facility] Body weight 2020-11-30 14:35:00 64.411 kg [facility] [place] [facility] BMI 2020-11-30 14:35:00 24.37 kg/m2 [facility] [place] [facility] Systolic blood 2020-11-13 20:00:00 115 mm[Hg] Univer sity of pressure [place] [facility] Diastolic blood 2020-11-13 20:00:00 77 mm[Hg] Unive rsity of pressure [place] [facility] Heart rate 2020-11-13 20:00:00 82 /min [facility] [place] [facility] Respiratory rate 2020-11-13 20:00:00 16 /min Univ ers[facility] [place] [facility] Body height 2020-11-13 20:00:00 162.6 cm [facility] [place] [facility] Body weight 2020-11-13 20:00:00 64.728 kg [facility] [place] [facility] BMI 2020-11-13 20:00:00 24.49 kg/m2 [facility] [place] [facility] Oxygen saturation in 2020-11-13 20:00:00 94 /min [facility] Arterial blood by [facility] Pulse oximetry Branch Systolic blood 2020-10-07 19:37:00 118 mm[Hg] Univer sity of pressure [place] [facility] Diastolic blood 2020-10-07 19:37:00 80 mm[Hg] Unive rsity of pressure [place] [facility] Heart rate 2020-10-07 19:37:00 95 /min [facility] [place] [facility] Body weight 2020-10-07 19:37:00 59.875 kg [facility] [place] [facility] BMI 2020-10-07 19:37:00 22.65 kg/m2 [facility] [place] [facility] Oxygen saturation in 2020-10-07 19:37:00 97 /min [facility] Arterial blood by [facility] Pulse oximetry Branch Heart rate 2020-10-01 20:20:00 60 /min [facility] [place] [facility] Systolic blood 2020-10-01 20:20:00 120 mm[Hg] Univer sity of pressure [place] [facility] Diastolic blood 2020-10-01 20:20:00 80 mm[Hg] Unive rsity of pressure [place] [facility] Heart rate 2020-10-01 20:20:00 60 /min [facility] [place] [facility] Systolic blood 2020-10-01 20:20:00 120 [...] 2020-09-07 20:47:00 88 /min [facility] [place] [facility] Body temperature 2020-09-07 20:47:00 36.17 Lucero [facility] [place] [facility] Respiratory rate 2020-09-07 20:47:00 18 /min Univ ers[facility] [place] [facility] Oxygen saturation in 2020-09-07 20:47:00 99 /min [facility] Arterial blood by [facility] Pulse oximetry Branch Body height 2020-09-05 07:40:00 162.6 cm [facility] [place] [facility] Body weight 2020-09-05 07:40:00 60.737 kg [facility] [place] [facility] BMI 2020-09-05 07:40:00 22.97 kg/m2 [facility] [place] [facility] Systolic blood 2020-09-04 21:15:00 130 mm[Hg] Univer sity of pressure [place] [facility] Diastolic blood 2020-09-04 21:15:00 83 mm[Hg] Unive rsity of pressure [place] [facility] Heart rate 2020-09-04 21:15:00 85 /min [facility] [place] [facility] Respiratory rate 2020-09-04 21:15:00 19 /min Univ ersity [facility] [place] [facility] Body height 2020-09-04 21:15:00 162.6 cm [facility] [place] [facility] Body weight 2020-09-04 21:15:00 65.318 kg [facility] [place] [facility] BMI 2020-09-04 21:15:00 24.72 kg/m2 [facility] [place] [facility] Systolic blood 2020-05-08 19:29:00 128 mm[Hg] Univer sity of pressure [place] [facility] Diastolic blood 2020-05-08 19:29:00 80 mm[Hg] Unive rsity of pressure [place] [facility] Heart rate 2020-05-08 19:29:00 82 /min [facility] [place] [facility] Body temperature 2020-05-08 19:29:00 36.39 Lucero [facility] [place] [facility] Body height 2020-05-08 19:29:00 162.6 cm [facility] [place] [facility] Body weight 2020-05-08 19:29:00 68.04 kg [facility] [place] [facility] BMI 2020-05-08 19:29:00 25.75 kg/m2 [facility] [place] [facility] Systolic blood 2020-04-03 19:48:00 104 mm[Hg] Univer sity of pressure [place] [facility] Diastolic blood 2020-04-03 19:48:00 66 mm[Hg] Unive rsity of pressure [place] [facility] Heart rate 2020-04-03 19:48:00 81 /min [facility] [place] [facility] Body temperature 2020-04-03 19:48:00 36.72 Lucero [facility] [place] [facility] Respiratory rate 2020-04-03 19:48:00 18 /min Univ ers[facility] [place] [facility] Body height 2020-04-03 19:48:00 162.6 cm [facility] [place] [facility] Body weight 2020-04-03 19:48:00 69.4 kg [facility] [place] [facility] BMI 2020-04-03 19:48:00 26.26 kg/m2 [facility] [place] [facility] Systolic blood 2020-01-10 21:55:00 126 mm[Hg] Univer sity of pressure [place] [facility] Diastolic blood 2020-01-10 21:55:00 84 mm[Hg] Unive rsity of pressure [place] [facility] Heart rate 2020-01-10 21:55:00 93 /min [facility] [place] [facility] Respiratory rate 2020-01-10 21:55:00 16 /min Univ ersity [facility] [place] [facility] Body height 2020-01-10 21:55:00 162.6 cm [facility] [place] [facility] Body weight 2020-01-10 21:55:00 72.303 kg [facility] [place] [facility] BMI 2020-01-10 21:55:00 27.36 kg/m2 [facility] [place] [facility] Systolic blood 2019-10-11 20:16:00 124 mm[Hg] Univer sity of pressure [place] [facility] Diastolic blood 2019-10-11 20:16:00 77 mm[Hg] Unive rsity of pressure [facility] Heart rate 2019-10-11 20:16:00 92 /min [facility] [place] [facility] Body temperature 2019-10-11 20:16:00 36.89 Lucero [facility] [place] [facility] Respiratory rate 2019-10-11 20:16:00 18 /min Univ ers[facility] [place] [facility] Body height 2019-10-11 20:16:00 162.6 cm [facility] [place] [facility] Body weight 2019-10-11 20:16:00 80.74 kg [facility] [place] [facility] BMI 2019-10-11 20:16:00 30.55 kg/m2 [facility] [place] [facility] Heart rate 2019-08-16 16:31:00 90 /min [facility] [place] [facility] Respiratory rate 2019-08-16 16:31:00 18 /min Univ ersity [facility] [place] [facility] Oxygen saturation in 2019-08-16 16:31:00 97 /min [facility] Arterial blood by [facility] Pulse oximetry Branch Systolic blood 2019-08-16 16:17:00 110 mm[Hg] Univer sity of pressure [facility] Diastolic blood 2019-08-16 16:17:00 58 mm[Hg] Unive rsity of pressure [facility] Body temperature 2019-08-16 16:17:00 36 Lucero [facility] [place] [facility] Body weight 2019-08-16 08:21:00 79.833 kg [facility] [place] [facility] BMI 2019-08-16 08:21:00 30.21 kg/m2 [facility] [place] [facility] Body height 2019-08-15 13:32:00 162.6 cm [facility] [place] [facility] Systolic blood 2019-08-05 16:11:00 145 mm[Hg] Univer sity of pressure [facility] Diastolic blood 2019-08-05 16:11:00 88 mm[Hg] Unive rsity of pressure [facility] Heart rate 2019-08-05 16:11:00 92 /min [facility] [place] [facility] Respiratory rate 2019-08-05 16:11:00 19 /min [facility] [place] [facility] Body height 2019-08-05 16:11:00 162.6 cm [facility] [place] [facility] Body weight 2019-08-05 16:11:00 80.513 kg [facility] [place] [facility] BMI 2019-08-05 16:11:00 30.47 kg/m2 [facility] [place] [facility] Oxygen saturation in 2019-08-05 16:11:00 99 /min [facility] blood by [facility] Pulse oximetry Branch Systolic blood 2019-02-04 15:08:00 117 mm[Hg] Univer sity of pressure [facility] Diastolic blood 2019-02-04 15:08:00 83 mm[Hg] Unive rsity of pressure [facility] Heart rate 2019-02-04 15:08:00 80 /min [facility] [place] [facility] Respiratory rate 2019-02-04 15:08:00 20 /min [facility] [place] [facility] Body height 2019-02-04 15:08:00 162.6 cm [facility] [place] [facility] Oxygen saturation in 2019-02-04 15:08:00 99 /min [facility] blood by [facility] Pulse oximetry Branch Systolic blood 2019-01-04 19:51:00 124 mm[Hg] [facility] of pressure [facility] Diastolic blood 2019-01-04 19:51:00 83 mm[Hg] [facility] operated by [facility] Heart rate 2019-01-04 19:51:00 79 /min [facility] Respiratory rate 2019-01-04 19:51:00 16 /min [facility] Body height 2019-01-04 19:51:00 162.6 cm [facility] Body weight 2019-01-04 19:51:00 76.204 kg [facility] BMI 2019-01-04 19:51:00 28.84 kg/m2 [facility] Procedures Procedure Date / Time Performing Clinician Source Performed POCT GLUCOSE (AUTOMATED) 2021-02-12 21:28:00 Fabby Nieves [facility] BASIC METABOLIC PANEL (NA, 2021-02-12 20:36:00 Fabby Nieves [facility] K, CL, CO2, GLUCOSE, BUN, Medica l Branch CREATININE, CA) CBC WITH DIFF 2021-02-12 20:36:00 Fabby Nieves [facility] URINALYSIS 2021-02-12 20:36:00 Fabby Nieves [facility] POCT GLUCOSE (AUTOMATED) 2021-02-12 19:33:00 Doctor Unassigned, [facility] CONSENT/REFUSAL FOR 2021-02-12 19:10:35 Doctor Unassigned, [facility] DIAGNOSIS AND TREATMENT [facility] POCT GLUCOSE (AUTOMATED) 2021-01-17 17:24:00 Celso Duran [facility] POCT GLUCOSE (AUTOMATED) 2021-01-17 12:38:00 Celso Duran [facility] BASIC METABOLIC PANEL (NA, 2021-01-17 09:06:00 Priyanka Haney [facility] K, CL, CO2, GLUCOSE, BUN, Medica l Branch CREATININE, CA) CBC WITH DIFF 2021-01-17 09:06:00 Priyanka Haney [facility] POCT GLUCOSE (AUTOMATED) 2021-01-16 21:11:00 Celso Duran [facility] POCT GLUCOSE (AUTOMATED) 2021-01-16 16:41:00 Celso Duran [facility] POCT GLUCOSE (AUTOMATED) 2021-01-16 12:48:00 Celso Duran [facility] CBC WITH DIFF 2021-01-16 08:25:00 Priyanka Haney [facility] POCT GLUCOSE (AUTOMATED) 2021-01-16 08:24:00 Celso Duran [facility] MAGNESIUM 2021-01-16 08:17:00 Priyanka Haney [facility] BASIC METABOLIC PANEL (NA, 2021-01-16 08:17:00 Priyanka Haney [facility] K, CL, CO2, GLUCOSE, BUN, Medica l Branch CREATININE, CA) LIPID PANEL ([id number])(TOTAL 2021-01-16 08:17:00 Priyanka Haney [facility] TRIGLY[facility]ER[facility]ES, HDL) LOW-DENSITY LIPOPROTEIN, 2021-01-16 08:17:00 Priyanka Haney [facility] DIRECT [facility] POCT GLUCOSE (AUTOMATED) 2021-01-16 03:51:00 Celso Duran [facility] URINE CULTURE 2021-01-16 01:56:00 Priyanka Haney [facility] POCT GLUCOSE (AUTOMATED) 2021-01-16 01:06:00 Celso Duran [facility] URINALYSIS 2021-01-15 23:47:00 Priyanka Haney [facility] BLOOD CULTURE SCREEN 2021-01-15 23:39:00 Priyanka Haney [facility] PHOSPHORUS 2021-01-15 23:30:00 Priyanka Haney [facility] TROPONIN I 2021-01-15 23:30:00 Priyanka Haney [facility] THYROID STIMULATING 2021-01-15 23:30:00 Priyanka Haney [facility] HORMONE [facility] HEPATIC FUNCTION PANEL 2021-01-15 23:30:00 Priyanka Haney [facility] ([id number]) (ALB,T.PRO,BILI Medical Branch T,BU/BC,ALT,AST,ALK PHOS) GLYCOSYLATED HEMOGLOBIN 2021-01-15 23:30:00 Priyanka Haney [facility] (A1C) [facility] BLOOD CULTURE SCREEN 2021-01-15 23:27:00 Priyanka Haney [facility] POCT GLUCOSE (AUTOMATED) 2021-01-15 22:30:00 Celso Duran [facility] COVID-19 (ID NOW RAPID 2021-01-15 20:44:00 Priyanka Haney [facility] TESTING) Medical Branch LAB ONLY COVID 2021-01-15 20:44:00 Priyanka Haney [facility] INTERPRETATION [facility] NOTICE OF PRIVACY 2021-01-15 20:25:44 Doctor Unassigned, [facility] PRACTICES [facility] CONSENT/REFUSAL FOR 2021-01-15 20:25:23 Doctor Unassigned, [facility] DIAGNOSIS AND TREATMENT [place] ASSIGNMENT OF BENEFITS 2021-01-15 20:24:58 Doctor Unassigned, [facility] [place] POCT HEMOGLOBIN A1C TEST 2021-01-01 16:39:00 Anatoly Villegas [facility] POCT GLUCOSE (AUTOMATED) 2020-12-01 17:39:00 Lesia Jc [facility] MAGNESIUM 2020-12-01 10:29:00 Anatoly Wahl [facility] BASIC METABOLIC PANEL (NA, 2020-12-01 10:29:00 Anatoly Wahl [facility] K, CL, CO2, GLUCOSE, BUN, Medica l Branch CREATININE, CA) CBC WITH DIFF 2020-12-01 10:29:00 Anatoly Wahl [facility] POCT GLUCOSE (AUTOMATED) 2020-12-01 02:29:00 Ra Camarillo [facility] ACTIVATED PARTIAL THRMPLAS 2020-12-01 00:50:00 Miguel Luo [facility] POCT GLUCOSE (AUTOMATED) 2020-11-30 23:07:00 Ra Camarillo [facility] POCT ACT LOW RANGE 2020-11-30 22:17:00 Lily [facility] POCT ACT LOW RANGE 2020-11-30 21:55:00 Lily Jenkins [facility] BASIC METABOLIC PANEL (NA, 2020-11-30 14:26:00 Lily Jenkins [facility] K, CL, CO2, GLUCOSE, BUN, Medica l Branch CREATININE, CA) COVID-19 (ID NOW RAPID 2020-11-30 13:21:00 Brown Woodward [facility] TESTING) Medical Branch LAB ONLY COVID 2020-11-30 13:21:00 Brown Woodward [facility] INTERPRETATION [facility] POCT GLUCOSE(AGE >30DAYS) 2020-10-07 19:39:00 [facility] ([facility]OMATED) 2020-09-07 22:28:00 Jay England [facility] POCT GLUCOSE (AUTOMATED) 2020-09-07 20:47:00 Jay England [facility] POCT GLUCOSE (AUTOMATED) 2020-09-07 20:12:00 Jay England [facility] POCT GLUCOSE (AUTOMATED) 2020-09-07 16:43:00 Jay England [facility] CAROTID DUPLEX BILATERAL - 2020-09-07 15:09:10 Lily Jenkins [facility] BY VASCULAR LAB [facility] POCT GLUCOSE (AUTOMATED) 2020-09-07 12:50:00 Jay England [facility] COMP. METABOLIC PANEL 2020-09-07 09:28:00 Elyse Aparicio [facility] ([id number]) [facility] CBC WITH DIFF 2020-09-07 09:28:00 Jay England [facility] POCT GLUCOSE (AUTOMATED) 2020-09-07 01:42:00 Jay England [facility] CORTISOL STIMULATION 60 2020-09-06 23:08:00 Abdullah, Jay Univ [facility] CORTISOL STIMULATION 30 2020-09-06 22:36:00 Jay England [facility] CORTISOL STIMULATION 0 MIN 2020-09-06 22:05:00 Jay [facility] PO[facility] GLUCOSE (AUTOMATED) 2020-09-06 21:04:[address] [facility]UCOSE (AUTOMATED) 2020-09-06 19:57:[address] [facility] POCT GLUCOSE (AUTOMATED) 2020-09-06 16:40:00 Jay England [facility] POCT GLUCOSE (AUTOMATED) 2020-09-06 12:45:00 Anastasia Giraldo [facility] PHOSPHORUS 2020-09-06 11:16:00 Jay England [facility] MAGNESIUM 2020-09-06 11:16:00 Alessandra jonas [facility] CORTISOL AM 2020-09-06 11:16:00 Alessandra [facility] COMP. METABOLIC PANEL 2020-09-06 11:16:00 Elyse Aparicio [facility] ([id number]) [facility] CBC WITH DIFF 2020-09-06 11:16:00 Alessandra [facility] N-TERMINAL PRO-BNP 2020-09-06 11:16:00 Alessandra jonas [facility] POCT GLUCOSE (AUTOMATED) 2020-09-06 01:07:00 [facility]astasia [facility]iral[facility] TROPONIN I 2020-09-06 00:13:00 Alessandra jonas [facility] SEDIMENTATION RATE 2020-09-06 00:13:00 Jay [facility] POCT GLUCOSE (AUTOMATED) 2020-09-05 21:44:00 Anastasia Giraldo [facility] POCT GLUCOSE (AUTOMATED) 2020-09-05 16:54:00 Anastasia Giraldo [facility] POCT GLUCOSE (AUTOMATED) 2020-09-05 13:47:00 Anastasia Giraldo [facility] ABDOMEN PELVIS WO 2020-09-05 11:16:59 Alessandra jonas [facility] CONTRAST [facility] CREATINE KINASE 2020-09-05 10:01:00 Alessandra jonas [facility] MAGNESIUM 2020-09-05 10:01:00 Alessandra jonas [facility] VITAMIN B12, LEVEL 2020-09-05 10:01:00 Alessandra jonas [facility] TROPONIN I 2020-09-05 10:01:00 Alessandra [facility] COMP. METABOLIC PANEL 2020-09-05 10:01:00 Elyse Aparicio [facility] ([id number]) [facility] LIPID PANEL (25109)(TOTAL 2020-09-05 10:01:00 Jay England [facility] CHOLESTEROL, [facility] TRIGLYCERIDES, HDL) CBC WITH DIFF 2020-09-05 10:01:00 Alessandra jonas [facility] GLYCOSYLATED HEMOGLOBIN 2020-09-05 10:01:00 Alessandra [facility] (A1C) [facility] PROTHROMBIN TIME / INR 2020-09-05 10:01:00 Alessandra jonas [facility] N-TERMINAL PRO-BNP 2020-09-05 10:01:00 Alessandra jonas [facility] VITAMIN D, 25-OH 2020-09-05 10:01:00 Alessandra [facility] PROCALCITONIN 2020-09-05 10:01:00 Alessandra jonas [facility] URINE CULTURE 2020-09-05 05:12:00 Anastasia Giraldo [facility] COVID-19 (ID NOW RAPID 2020-09-05 05:12:00 Anastasia Giraldo [facility] TESTING) [facility] POCT GLUCOSE (AUTOMATED) 2020-09-05 04:24:00 Anastasia Giraldo [facility] ACUTE CARE VENOUS BLOOD 2020-09-05 02:29:00 Anastasia Giraldo Uni [facility] GAS [facility] PHOSPHORUS 2020-09-05 02:22:00 Alessandra jonas [facility] LIPASE 2020-09-05 02:22:00 Anastasia Giraldo [facility] MAGNESIUM 2020-09-05 02:22:00 Alessandra jonas [facility] TROPONIN I 2020-09-05 02:22:00 Anastasia Giraldo [facility] THYROID STIMULATING 2020-09-05 02:22:00 Alessandra jonas [facility] HORMONE [facility] COMP. METABOLIC PANEL 2020-09-05 02:22:00 Anastasia Giraldo [facility] ([id number]) [facility] CBC WITH DIFF 2020-09-05 02:22:00 Anastasia Giraldo [facility] URINALYSIS 2020-09-05 02:22:00 Anastasia Giraldo [facility] N-TERMINAL PRO-BNP 2020-09-05 02:22:00 Anastasia Giraldo [facility] POCT GLUCOSE (AUTOMATED) 2020-09-05 01:56:00 Doctor Juan Manuel, [facility] NOTICE OF PRIVACY 2020-09-05 01:52:18 Doctor Juan Manuel, [facility] PRACTICES [facility] CONSENT/REFUSAL FOR 2020-09-05 01:51:48 Doctor Juan Manuel [facility] DIAGNOSIS AND TREATMENT [facility] CONSENT/REFUSAL FOR 2020-09-04 22:21:52 Doctor Juan Manuel [facility] DIAGNOSIS AND TREATMENT [facility] POCT HEMOGLOBIN A1C TEST 2020-09-04 00:00:00 Anatoly Villegas [facility] EXTERNAL PROVIDER RECORDS 2020-08-03 06:01:00 Doctor Juan Manuel, [facility] Name [facility] XR LUMBAR SPINE 4 VW 2020-05-08 21:19:59 Rashad Costa [facility] XR HIPS 2 VW LEFT 2020-05-08 21:19:59 Rashad Costa [facility] ASSIGNMENT OF BENEFITS 2020-05-08 20:39:58 Doctor Unassmarcela, [facility] URINE CULTURE 2020-04-03 20:18:00 Adum, Sisi Montero [facility] GC & CHLAMYDIA AMPLIFIED 2020-04-03 20:18:00 Adum, Sisi Montero [facility] GALV ONLY - VAGINAL 2020-04-03 20:18:00 Adum, Sisi Montero [facility] PATHOGENS BY NUCLEIC ACID [facility] TESTING TRICHOMONAS AMPLIFIED 2020-04-03 20:18:00 Adum, Sisi Montero [facility] POCT URINALYSIS W/O 2020-04-03 00:00:00 Adum, Sisi Montero [facility] SPECIFIC GRAVITY [facility] POCT HEMOGLOBIN A1C TEST 2020-01-10 00:00:00 Anatoly Villegas [facility] HOSPITAL ADMISSION MISC - 2019-12-10 05:01:00 Doctor Juan Manuel, [facility] MEDICARE PATIENTS RIGHTS [facility] IMPORTANT MESSAGE BI SCREENING MAMMOGRAM 2019-11-01 17:35:15 Ernst Weeks [facility] BILATERAL [facility] CONSENT/REFUSAL FOR 2019-11-01 16:33:32 Doctor Zambrano [facility] DIAGNOSIS AND TREATMENT [facility] ASSIGNMENT OF BENEFITS 2019-11-01 16:33:15 Doctor Juan Manuel, Un [facility] Name [facility] [place] [id number] CONSENT 2019-10-11 05:01:00 Doctor Zambrano [facility] AGREEMENTS AUTHORIZATIONS 2019-08-30 05:01:00 Doctor Juan Manuel, [facility] AND IRREVOCABLE [facility] ASSIGNMENTS (FORM 2000) POCT GLUCOSE (AUTOMATED) 2019-08-16 13:02:00 Rhianna Romano [facility] POCT GLUCOSE (AUTOMATED) 2019-08-16 09:53:00 Rhianna Romano [facility] MAGNESIUM 2019-08-16 09:52:00 Izaiah Miles o [facility] BASIC METABOLIC PANEL (NA, 2019-08-16 09:52:00 Izaiah Miles [facility] K, CL, CO2, GLUCOSE, BUN, Medica l Branch CREATININE, CA) CBC WITH DIFFERENTIAL 2019-08-16 09:52:00 Izaiah Miles [facility] POCT GLUCOSE (AUTOMATED) 2019-08-16 07:10:00 Rhianna Romano [facility] POCT GLUCOSE (AUTOMATED) 2019-08-16 05:02:00 Rhianna Romano [facility] CT HEAD WO CONTRAST 2019-08-16 00:49:18 Shanta Spring [facility] POCT GLUCOSE (AUTOMATED) 2019-08-15 22:14:00 Rhianna Romano Uni [facility] POCT GLUCOSE (AUTOMATED) 2019-08-15 20:40:00 Rhianna Romano [facility] ACTIVATED PARTIAL THRMPLAS 2019-08-15 20:35:00 Izaiah Miles [facility] POCT GLUCOSE (AUTOMATED) 2019-08-15 16:53:00 Rhianna Romano [facility] POCT ACT LOW RANGE 2019-08-15 15:35:00 Juan Antonio [facility] POCT ACT LOW RANGE 2019-08-15 15:14:00 Juan Antonio [facility] POCT ACT LOW RANGE 2019-08-15 14:37:00 Juan Antonio [facility] POCT ACT LOW RANGE 2019-08-15 14:20:00 Juan Antonio [facility] MAGNESIUM 2019-08-15 09:53:00 Izaiah Miles o f [facility] BASIC METABOLIC PANEL (NA, 2019-08-15 09:53:00 Izaiah Miles [facility] K, CL, CO2, GLUCOSE, BUN, Medica l Branch CREATININE, CA) CBC WITH DIFFERENTIAL 2019-08-15 09:53:00 Izaiah Miles [facility] ACTIVATED PARTIAL THRMPLAS 2019-08-15 09:53:00 Shanta Spring [facility] POCT GLUCOSE (AUTOMATED) 2019-08-15 09:47:00 Rhianna Romano [facility] POCT GLUCOSE (AUTOMATED) 2019-08-15 06:33:00 Rhianna Romano [facility] POCT GLUCOSE (AUTOMATED) 2019-08-15 03:08:00 Rhianna Romano [facility] BASIC METABOLIC PANEL (NA, 2019-08-15 01:48:00 Izaiah Miles [facility] K, CL, CO2, GLUCOSE, BUN, Medica [facility] Branch CREATININE, CA) ACTIVATED PARTIAL THRMPLAS 2019-08-15 01:48:00 Shanta Spring [facility] POCT GLUCOSE (AUTOMATED) 2019-08-15 01:46:00 Rhianna Romano [facility] POCT GLUCOSE (AUTOMATED) 2019-08-14 22:29:00 Rhianna Romano [facility] POCT GLUCOSE (AUTOMATED) 2019-08-14 20:42:00 Rhianna Romano [facility] ACTIVATED PARTIAL THRMPLAS 2019-08-14 19:14:00 Shanta Spring [facility] POCT GLUCOSE (AUTOMATED) 2019-08-14 16:43:00 Rhianna oRmano [facility] ECHO ROUTINE W/DOPPLER 2019-08-14 14:10:31 Izaiah Miles [facility] POCT GLUCOSE (AUTOMATED) 2019-08-14 13:50:00 Rhianna Romano [facility] GALV ONLY - INFLUENZA A B 2019-08-14 13:42:00 [facility] E[facility]-12 LEAD 2019-08-14 13:11:24 Rhianna Romano [facility] ACTIVATED PARTIAL THRMPLAS 2019-08-14 10:04:00 [facility] 2019-08-14 10:03:00 Izaiah Miles [facility] BASIC METABOLIC PANEL (NA, 2019-08-14 10:03:00 Izaiah Miles [facility] K, CL, CO2, GLUCOSE, BUN, Medica l Branch CREATININE, CA) CBC WITH DIFFERENTIAL 2019-08-14 10:03:00 Izaiah Miles [facility] POCT GLUCOSE (AUTOMATED) 2019-08-14 01:18:00 Rhianna Romano [facility] POCT GLUCOSE (AUTOMATED) 2019-08-13 23:08:00 Rhianna Romano [facility] ACTIVATED PARTIAL THRMPLAS 2019-08-13 22:43:00 Shanta Spring [facility] POCT GLUCOSE (AUTOMATED) 2019-08-13 19:28:00 Rhianna Romano [facility] CORONARY ANGIOGRAPHY 2019-08-13 16:40:26 Doctor Unassigned, [facility] TROPONIN I 2019-08-13 13:14:00 Saw [facility] POCT GLUCOSE (AUTOMATED) 2019-08-13 13:12:00 Rhianna Romano [facility] XR CHEST 1 VW 2019-08-13 08:08:00 Saw [facility] MAGNESIUM 2019-08-13 [facility]:24[facility] 2019-08-13 05:24:00 Saw [facility] BASIC METABOLIC PANEL (NA, 2019-08-13 05:24:00 Shanta Spring [facility] K, CL, CO2, GLUCOSE, BUN, Medica l Branch CREATININE, CA) CBC WITH DIFFERENTIAL 2019-08-13 05:24:00 Izaiah Miles [facility] GLYCOSYLATED HEMOGLOBIN 2019-08-13 05:24:00 Saw [facility] (A1C) [facility] PROTHROMBIN TIME / INR 2019-08-13 05:24:00 [facility] ACTIVATED PARTIAL THRMPLAS 2019-08-13 05:24:00 [facility]MINAL PRO-BNP 2019-08-13 05:24:00 [facility] 2019-08-13 04:39:22 Raja, [facility] o [facility] EXTERNAL PROVIDER - ADC 2019-08-05 05:01:00 Doctor UnaDarion fuller [facility] CARDIOLOGY [facility] NOTICE OF BILLING 2019-02-04 14:40:05 Doctor Juan Manuel, [facility] PRACTICES FOR MEDICARE [facility] PATIENTS NO SHOW OR MISSED 2019-01-04 19:28:18 Doctor Juan Manuel, [facility] APPOINTMENT POLICY [facility] ACKNOWLEDGEMENT REFERRAL- REQUEST/RESPONSE 2018-12-20 05:01:00 Doctor Juan Manuel , [facility] PATIENT CORRESPONDENCE 2018-12-06 05:01:00 Doctor Juan Manuel, Anuj [facility] (LETTERS, USPS [facility] DOCUMENTATION) Plan of Care Planned Activity Planned Date Details Comments Source Future Scheduled 2022 Screening for [facility] Test 00:00:00 malignant neoplasm of Medica l Branch colon (procedure) [code = 097152014] Future Scheduled 2022 Screening for [facility] Test 00:00:00 malignant neoplasm of Medica [facility] colon (procedure) [code = 784729188] Future Scheduled 2021-09-07 Creatinine [facility] Test 00:00:00 measurement Medical Branch (procedure) [code = 31049353] Future Scheduled 2021-09-07 Creatinine [facility] Test 00:00:00 measurement Medical Branch (procedure) [code = 81605833] Future Scheduled 2021-09-05 Calculated low [facility] Test 00:00:00 density lipoprotein Medical Branch cholesterol level (procedure) [code = 092013708] Future Scheduled 2021-09-05 Calculated low [facility] Test 00:00:00 density lipoprotein Medical [facility] cholesterol level (procedure) [code = 723919009] Future Scheduled 2021-05-08 Depression screening [facility] [place] Test 00:00:00 (procedure) [code = Medical Branch 825423877] Future Scheduled 2021-05-08 Depression screening [facility] Test 00:00:00 (procedure) [code = Medical Branch 497390123] Future Scheduled 2021-03-07 Hemoglobin A1c [facility] Test 00:00:00 measurement Medical Branch (procedure) [code = 13865766] Future Scheduled 2021-03-07 Hemoglobin A1c [facility] Test 00:00:00 measurement Medical Branch (procedure) [code = 41483835] Future Scheduled 2021-01-27 INFLUENZA VACCINE [facility] Test 00:00:00 (Season Ended) [code Medical Branch = INFLUENZA VACCINE (Season Ended)] Future Scheduled 2021-01-27 INFLUENZA VACCINE [facility] Test 00:00:00 (Season Ended) [code Medical Branch = INFLUENZA VACCINE (Season Ended)] Future Scheduled 2020-10-31 Screening for [facility] Test 00:00:00 malignant neoplasm of Medica l Branch breast (procedure) [code = 222806237] Future Scheduled 2020-10-31 Screening for [facility] Test 00:00:00 malignant neoplasm of Medica [facility] breast (procedure) [code = 190038074] Future Scheduled 2020-09-25 Screening for [facility] Test 00:00:00 malignant neoplasm of Medica [facility] Branch cervix (procedure) [code = 700763685] Future Scheduled 2020-09-25 Screening for [facility] Test 00:00:00 malignant neoplasm of Medica l Branch cervix (procedure) [code = 531618322] Future Scheduled 2020-05-10 Diabetic foot [facility] Test 00:00:00 examination Medical Branch (regime/therapy) [code = 098867250] Future Scheduled 2020-05-10 Diabetic foot [facility] Test 00:00:00 examination Medical Branch (regime/therapy) [code = 638227278] Future Scheduled 2019-09-01 Microalbumin [facility] Test 00:00:00 measurement, urine, Medical Branch quantitative (procedure) [code = 125743259] Future Scheduled 2019-09-01 Microalbumin [facility] Test 00:00:00 measurement, urine, Medical Branch quantitative (procedure) [code = 050694946] Future Scheduled 1991 DTaP[facility]Tdap,and Td [facility] Vaccines (1 - Tdap) Medical [facility] [code = DTaP,Tdap,and Td Vaccines (1 - Tdap)] Future Scheduled 1991 DTaP[facility]dap,and Td [facility]00 Vaccines (1 - Tdap) [facility] [code = DTaP,Tdap,and Td Vaccines (1 - Tdap)] Future Scheduled 1990 Hepatitis C screening [facility] [place] Test 00:00:00 (procedure) [code = Medical Branch 742771646] Future Scheduled 1990 Hepatitis C screening [facility] Test 00:00:00 (procedure) [code = Medical Branch 432295328] Future Scheduled 1988 SARS-CoV-2 (COVID-19) [facility] [place] Test 00:00:00 Vaccine (1) [code = Medical Branch SARS-CoV-2 (COVID-19) Vaccine (1)] Future Scheduled 1988 SARS-CoV-2 (COVID-19) [facility] Test 00:00:00 Vaccine (1) [code = Medical Branch SARS-CoV-2 (COVID-19) Vaccine (1)] Future Scheduled 1982 Examination of [facility] [place] Test 00:00:00 (procedure) [code = Medical Branch 838680095] Future Scheduled 1982 Examination of retina [facility] [place] Test 00:00:00 (procedure) [code = Medical Branch 085106489] Future Scheduled 1978 PNEUMOCOCCAL 0-64 Univer sity [...] Type Clinicians Facility Department ID 2021-03-29 Emergency [facility] [id number] [facility] 23:28:09 [facility] 2021-03-28 Emergency X [facility] [id number] Univers 11:58:59 [facility] 2021-03-28 Emergency [facility] [id number] Univers 11:58:17 [facility] 2021-03-26 Emergency [facility] [id number] Univers 12:39:58 [facility] 2021-07-09 2021-07-09 Outpatient R MARK [facility] [facility] [id number] 5Q-20 Univers 13:30:00 13:30:00 ANATOLY [id number] ity [facility] 2021-02-12 2021-02-12 Emergency [facility] 1.2.840.114 [id number] Univers 14:34:00 17:16:00 Fabby Hawkins 350.1.13.10 it[place] of [place] [phone] [facility] [address] [place] 2021-02-12 2021-02-12 Office [facility] 1.2.840.114 [id number] Univers 13:04:40 15:13:23 Visit [facility] 350.1.13.10 it y of [place] 4.2.7.2.686 Raffy as Charly?Blea [phone] [address] Medical Office Building 2021-02-12 2021-02-12 Outpatient R BANG [facility] [id number] -20 Univers 13:00:00 13:00:00 ALDA [id number] ity [facility] 2021-02-12 2021-02-12 Outpatient [facility] [id number] Univers 13:00:00 13:00:00 ALDA ity [facility] 2021-01-19 2021-01-19 Transition Matthew Daniel 1.2.840.114 [id number] Univers 00:00:00 00:00:00 of Veronika Mata 350.1.13.10 it y of [place] [phone] [facility] [address] 2021-01-15 2021-01-17 [facility] 1.2.840.114 [id number] Univers 15:17:00 13:06:00 Encounter Celso Hawkins 350.1.13.10 ity of [place].686 [place] [phone] [facility] [address] [place] 2021-01-15 2021-01-15 Office Gregory [facility] 1.2.840.114 [id number] Univers 14:09:25 15:11:21 Visit Lily Hawkins 350.1.13.10 it[place] of [place] [phone] Az terranceroseann uri 059 [facility] 2021-01-15 2021-01-15 Outpatient R GREGORY, [facility] [id number] -20 Univers 14:40:00 14:40:00 LILY [id number] ity o [facility] 2021-01-15 2021-01-15 Outpatient R GREGORY, [facility] [id number] Univers 14:40:00 14:40:00 LILY ro o [facility] 2021-01-01 2021-01-01 Office [facility] 1.2.944.083 [id number] Univers 11:28:43 12:58:14 Visit Anatoly Hawkins 350.1.13.10 i ty kranthi [place].2.[place] [phone] [facility] 220 [facility] 2021-01-01 2021-01-01 Outpatient R [facility] [id number] 5Q-20 Univers 11:30:00 11:30:00 ANATOLY [id number] [facility] 2021-01-01 2021-01-01 Outpatient R [facility] [id number] Univers 11:30:00 11:30:00 ANATOLY [facility] 2020-12-18 2020-12-18 Amy [facility] 1.2.840.114 [id number] Univers 00:00:00 00:00:00 [facility] 350.1.13.10 ity of [place] 4.2.7.2.686 [place]affy as Professio [phone] [facility] [address] [place] Office Building One 2020-12-02 2020-12-02 Outpatient R [facility] [id number] -20 Univers 16:00:00 16:00:00 LILY [id number] ity o [facility] 2020-12-02 2020-12-02 Outpatient R [facility] [id number] Univers 16:00:00 16:00:00 LILY ity o f [facility] 2020-11-30 2020-12-01 [facility] Lily Jenkins 1.2.840.114 [id number] Univers 17:33:00 15:15:00 Encounter Ra Camarillo Aida 350.1.1 3.10 [facility] 4.2.7.2 .686 [facility] [phone] [place] 368789 [place] 2020-12-01 2020-12-01 Outpatient R IGOR, [facility] [id number] Q-20 Univers 14:00:00 14:00:00 WONDIFUL [id number] ity o f [facility] 2020-12-01 2020-12-01 Outpatient R IGOR, [facility] [id number] Univers 14:00:00 14:00:00 WONDIFUL ity o [facility] 2020-11-30 2020-11-30 Outpatient [facility] [id number] -20 Univers 08:00:00 08:00:00 [id number] ity [facility] 2020-11-30 2020-11-30 Outpatient R [facility] [id number] Univers 08:00:00 08:00:00 ity [facility] 2020-11-30 2020-11-30 [facility] Diana Woodward 1.2.840.114 [id number] Univers 07:45:00 07:59:00 Encounter Brown Avery Aida 350.1.13.10 [facility] 4.2.7.2.686 [place]affy as [phone] [place] [address] [place] 2020-11-27 2020-11-27 Outpatient R MARK, [facility] [id number] 5Q-20 Univers 14:00:00 14:00:00 ANATOLY [id number] [facility] 2020-11-27 2020-11-27 Outpatient Sonya VILLEGAS, [facility] [id number] Univers 14:00:00 14:00:00 ANATOLY [facility] 2020-11-25 2020-11-25 Telephone Donna Jenkinse 1.2.974.676 [id number] Univers 00:00:00 00:00:00 Jeffersonmartita Malta 350.1.13.10 i ty of Hospital 4.2.7.2.686 Raffy as [phone] [address] 2020-11-25 2020-11-25 Telephone [facility] 1.2.902.920 [id number] Univers 00:00:00 00:00:00 Patient [place] 350.1.13.10 i ty of Does Not [place] 4.2.7.2.686 Raffy as Have A Professio [phone] Az dical nal 843 [facility] 2020-11-16 2020-11-16 Telephone GregoryDiana 1.2.038.944 [id number] Univers 00:00:00 00:00:00 Salvadoralexmartita Aida 350.1.13.10 i ty of Hospital 4.2.7.2.686 Raffy as [phone] [address] 2020-11-13 2020-11-13 Office [facility] 1.2.840.114 [id number] Univers 14:46:41 15:21:27 Visit Jeffersonmartita Shruthi 350.1.13.10 it[place] of [place] [phone] Az dical nal 059 [facility] 2020-11-13 2020-11-13 Outpatient R GREGORY [facility] [id number] Univers 14:00:00 14:00:00 LILY roy o f [facility] 2020-11-13 2020-11-13 Outpatient R IGOR [facility] [id number] Q-20 Univers 13:00:00 13:00:00 WONDIFUL [id number] ity o f [facility] 2020-11-12 2020-11-12 Telephone [facility] 1.2.840.114 [id number] Univers 00:00:00 00:00:00 [facility]iful [facility] 350.1.13.10 ity of [place] 4.2.7.2.686 Raffy as Professio [phone] [facility] 044 [facility] One 2020-10-28 2020-10-28 Pre Visit Igor [facility] 1.2.840.114 [id number] Univers 00:00:00 00:00:00 Outreach [facility] 350.1.13.10 ity of [place] 4.2.7.2.686 Raffy as Professio [phone] Az dical nal 044 [facility] 2020-10-07 2020-10-07 Office Vance [facility] 1.2.840.114 [id number] Univers 13:57:34 15:30:50 Visit Wentong [place] 350.1.13.10 i ty of [place].2.[place].2.[place] [phone] Az dical nal 220 [facility] 2020-10-07 2020-10-07 Outpatient R VANCE [facility] [id number] -20 Univers 14:00:00 14:00:00 [facility] [id number] ity [facility] 2020-10-07 2020-10-07 Outpatient R VANCE, [facility] [id number] Univers 14:00:00 14:00:00 WENTONG ity [facility] 2020-10-06 2020-10-06 Outpatient R VANCE, [facility] [id number] -20 Univers 14:30:00 14:30:00 WENTONG [id number] ity [facility] 2020-10-06 2020-10-06 Outpatient R VANCE, [facility] [id number] Univers 14:30:00 14:30:00 W[facility]ONG [facility] 2020-10-01 2020-10-01 Office [facility] 1.2.840.114 [id number] 15:08:27 16:09:31 Visit [facility] 350.1.13.10 [place] 4.2.7.2.686 Professio [phone] nal [address] [place] [address] One 2020-10-01 2020-10-01 Office [place]PR[place]IE [place], UTMINDY 1.2.840.114 [id number] Univers 15:08:27 16:09:31 Visit [facility] 350.1.13.10 ity of [place] 4.2.7.2.686 [place]affy as Professio [phone] [address] Office Building One 2020-10-01 2020-10-01 Outpatient R IGOR [facility] [id number] Univers 15:00:00 15:00:00 WONDIFUL ity o f [facility] 2020-09-26 2020-09-26 Refleticia [facility] 1.2.840.114 [id number] Univers 00:00:00 00:00:00 [facility] 350.1.13.10 ity of [place] 4.2.7.2.686 [place]affy as Professio [phone] [address] Office [facility] One 2020-09-24 2020-09-24 Refleticia [facility] 1.2.840.114 [id number] Univers 00:00:00 00:00:00 [facility] 350.1.13.10 ity of [place] 4.2.7.2.686 [place] as Professio [phone] [address] Office [facility] One 2020-09-11 2020-09-11 Refleticia [facility] 1.2.840.114 [id number] Univers 00:00:00 00:00:00 [facility] 350.1.13.10 ity of [place] 4.2.7.2.686 [place]affy as Professio [phone] [address] One 2020-09-09 2020-09-09 Transition Matthew Gonzalez 1.2.840.114 [id number] Univers 00:00:00 00:00:00 of Care Garcia A Mata 350.1.13.10 ity of [place]2.[place].2.[place] [phone] [address] 2020-09-04 2020-09-07 [facility] Ronnie Murry [facility] 1.2.8 40.114 [id number] Univers 20:58:00 18:15:00 Encounter Anastasia Giraldo [place] 350.1.13.1 0 ity of Elyse Aparicio 4.2.7.2.686 [facility] [phone] Medical [address] [place] 2020-09-04 2020-09-04 Office [facility] 1.2.144.606 [id number] Univers 16:01:54 17:11:05 Visit Anatoly Hawkins 350.1.13.10 i ty of [place].2.[place] [phone] Az dical nal 220 [facility] 2020-09-04 2020-09-04 Outpatient R [facility] [id number] 5Q-20 Univers 16:00:00 16:00:00 ANATOLY [id number] [facility] 2020-09-04 2020-09-04 Outpatient R [facility] [id number] Univers 16:00:00 16:00:00 [facility] 2020-09-04 2020-09-04 Outpatient R [facility] [id number] Univers 16:00:00 16:00:00 [facility] 2020-09-04 2020-09-04 Orders Doctor VAISHALI 1.2.840.114 [id number] Univers 00:00:00 00:00:00 Only Unassigned, AIDA 350.1.13.10 ity of [place] [facility] 4.2.7.2.686 Raffy as [phone] [address] 2020-08-13 2020-08-13 Patient [facility] 1.2.840.114 [id number] Univers 00:00:00 00:00:00 Outreach George PRIMARY 350.1.13.[address] [facility] 4.2.7.2.[place] [phone] Az dical [address] [place] 2020-08-04 2020-08-04 Refill [facility] 1.2.746.481 [id number] Univers 00:00:00 00:00:00 Anatoly Hawkins 350.1.13.10 i ty of [place].7.2.[place] [phone] Me dical nal 220 [facility] 2020-08-04 2020-08-04 Amy [facility] 1.2.840.114 [id number] Univers 00:00:00 00:00:00 [facility] 350.1.13.10 ity of [place] 4.2.7.2.686 [place]aff[place] as Professio [phone] [address] One 2020-08-03 2020-08-03 Orders Doctor VAISHALI 1.2.840.114 [id number] Univers 00:00:00 00:00:00 Only Unassigned, AIDA 350.1.13.10 ity of [place] [facility] 4.2.7.2.686 Raffy as [phone] [address] 2020-07-16 2020-07-16 Outpatient Sonya COSTA [facility] [id number] Univers 11:15:00 11:15:00 WONDIFUL ity o f [facility] 2020-06-22 2020-06-22 Amy [facility] 1.2.840.114 [id number] Univers 00:00:00 00:00:00 [facility] 350.1.13.10 ity of [place] 4.2.7.2.686 [place]aff[place] as Professio [phone] [address] One 2020-06-19 2020-06-19 Outpatient Sonya COSTA [facility] [id number] Q-20 Univers 14:00:00 14:00:00 WONDIFUL [id number] ity o f [facility] 2020-06-08 2020-06-08 Amy [facility] 1.2.840.114 [id number] Univers 00:00:00 00:00:00 [facility] 350.1.13.10 ity of [place] 4.2.7.2.686 [place]aff[place] as Professio [phone] [address] One 2020-06-05 2020-06-05 Amy [facility] 1.2.840.114 [id number] Univers 00:00:00 00:00:00 [facility] 350.1.13.10 ity of [place] 4.2.7.2.686 [place]affy as Professio [phone] [address] Office [facility] 2020-05-28 2020-05-28 Outpatient R IGOR [facility] [id number] Q-20 Univers 15:00:00 15:00:00 WONDIFUL [id number] ity o f [facility] 2020-05-28 2020-05-28 Outpatient R [facility] [id number] Univers 15:00:00 15:00:00 WONDIFUL ity o f [facility] 2020-05-19 2020-05-19 [facility] 1.2.840.114 [id number] Univers 00:00:00 00:00:00 [facility] 350.1.13.10 ity of [place] 4.2.7.2.686 [place] as Professio [phone] [address] 2020-05-14 2020-05-14 [facility] 1.2.840.114 [id number] Univers 00:00:00 00:00:00 [facility] 350.1.13.10 ity of [place] 4.2.7.2.686 [place]aff[place] as Professio [phone] [address] 2020-05-13 2020-05-13 [facility] 1.2.840.114 [id number] Univers 00:00:00 00:00:00 Management [facility] 350.1.13.10 ity of [place] 4.2.7.2.686 [place]aff[place] as Professio [phone] [address] Office [facility] 2020-05-08 2020-05-08 [facility] 1.2.480.935 [id number] Univers 14:47:36 23:59:00 Encounter Wondiful A [place] 350.1.13.10 ity of [place] 4.2.7.2.[place] [phone] [facility] [address] [place] 2020-05-08 2020-05-08 Outpatient R MARK [facility] [id number] 5Q-20 Univers 16:30:00 16:30:00 ANATOLY [id number] ity [facility] 2020-05-08 2020-05-08 Outpatient R MARK [facility] [id number] Univers 16:30:00 16:30:00 ANATOLY ity [facility] 2020-05-08 2020-05-08 Office [facility] 1.2.840.114 [id number] Univers 13:10:21 13:58:[address] [facility] 350.1.13.10 ity of [place] 4.2.7.2.686 Raffy as Professio [phone] Az dical nal [address] [place] Office Building One 2020-05-08 2020-05-08 Orders Doctor VAISHALI 1.2.840.114 [id number] Univers 00:00:00 00:00:00 Only Unassigned, AIDA 350.1.13.10 ity of [facility] 4.2.7.2.686 Raffy as [phone] [address] 2020-05-01 2020-05-01 Outpatient R IGOR [facility] [id number] Q-20 Univers 10:30:00 10:30:00 WONDIFUL ity o f [facility] 2020-05-01 2020-05-01 Outpatient R [facility] [id number] Univers 10:30:00 10:30:00 WONDIFUL ity o f [facility] 2020-04-17 2020-04-17 [facility] 1.2.840.114 [id number] Univers 11:00:00 11:30:00 ne Visit Sisi Hawkins 350.1.13.10 ity of [place].2.[place] [phone] Az dical nal [address] [place] Building 2020-04-17 2020-04-17 Outpatient R SHILA [facility] [id number] -[id number] Univers 11:00:00 11:00:00 SISI ity [facility] 2020-04-17 2020-04-17 Outpatient R SHILA [facility] [id number] Univers 11:00:00 11:00:00 SISI turner [facility] 2020-04-14 2020-04-14 Refleticia [facility] 1.2.840.114 [id number] Univers 00:00:00 00:00:00 [facility] 350.1.13.10 ity of [place] 4.2.7.2.686 Raffy as Professio [phone] Az dical nal 044 [facility] One 2020-04-13 2020-04-13 Amy [facility] 1.2.461.207 [id number] Univers 00:00:00 00:00:00 Anatoly Hawkins 350.1.13.10 i ty of [place].7.2.[place] [phone] Az dical nal 220 [facility] 2020-04-08 2020-04-08 Telephone [facility] 1.2.320.424 [id number] Univers 00:00:00 00:00:00 Sisi Kylah Shruthi 350.1.13.10 ity of [place].2.[place] [phone] Az dical nal 134 [facility] 2020-04-07 2020-04-07 Case [facility] 1.2.840.114 [id number] Univers 00:00:00 00:00:00 Management Sisi Hawkins 350.1.13.10 ity of [place].2.[place] [phone] Az dical nal 134 [facility] 2020-04-03 2020-04-03 Office [facility] 1.2.840.114 [id number] Univers 13:15:01 14:30:02 Visit Sisi Hawkins 350.1.13.10 ity of [place] 4.2.7.2.[place] [phone] Az dical nal 134 [facility] 2020-04-03 2020-04-03 Outpatient R AD, [facility] [id number] Univers 13:30:00 13:30:00 [facility] 2020-04-03 2020-04-03 Outpatient R AD, [facility] [id number] -[id number] Univers 10:30:00 10:30:00 SISI ity [facility] 2020-04-03 2020-04-03 Outpatient R SHILA, [facility] [id number] Univers 10:30:00 10:30:00 SISI ity [facility] 2020-04-01 2020-04-01 Telephone Serena Garsia [facility] 1.2.840.114 [id number] Univers 00:00:00 00:00:00 Cam [place] 350.1.13.10 i ty of [place].2.[place] [phone] [facility] 134 [facility] 2020-03-20 2020-03-20 [facility] 1.2.840.114 [id number] Univers 00:00:00 00:00:00 [facility] 350.1.13.10 ity of [place] 4.2.7.2.686 Raffy as Professio [phone] [facility] 044 [facility] 2020-03-09 2020-03-09 [facility] 1.2.840.114 [id number] Univers 00:00:00 00:00:00 W[facility]iful [facility] 350.1.13.10 ity of [place] 4.2.7.2.686 Raffy as Professio [phone] Az dical nal [address] [place] [address] One 2020-02-17 2020-02-17 Telephone [facility] 1.2.840.114 [id number] Univers 00:00:00 00:00:00 Wondiful A [facility] 350.1.13.10 ity of [place] 4.2.7.2.686 Raffy as Professio [phone] Az dic[address] Office [facility] One 2020-02-17 2020-02-17 Telephone [facility] 1.2.840.114 [id number] Univers 00:00:00 00:00:00 W[facility]iful [facility] 350.1.13.10 ity of [place] 4.2.7.2.686 [place]aff[place] as Professio [phone] [address] Office [facility] One 2020-01-13 2020-01-13 Refleticia [facility] 1.2.840.114 [id number] Univers 00:00:00 00:00:00 W[facility]iful [facility] 350.1.13.10 ity of [place] 4.2.7.2.686 Raffy as Professio [phone] Az dical nal [address] [place] Office Building One 2020-01-11 2020-01-11 Registered Vascular Technologist (Rvt) 1, Adc Lab [facility] 1.2.840.114 [id number] Univers 10:55:34 11:10:34 Visit Anatoly Villegas 350.1.13.10 ity of [place] 4.2.7.2.[place] [phone] [facility] [address] [place] 2020-01-11 2020-01-11 Outpatient R [facility] [id number] -[id number] Univers 11:00:00 11:00:00 [id number] ity [facility] 2020-01-11 2020-01-11 Outpatient R [facility] [id number] Univers 11:00:00 11:00:00 ity [facility] 2020-01-10 2020-01-10 Office [facility] 1..175.317 [id number] Univers 16:40:13 17:43:53 Visit Anatoly Hawkins 350.1.13.10 i ty of [place] 4.2.7.2.686 [place] [facility] [phone] Az dical nal 220 [facility] 2020-01-10 2020-01-10 Outpatient R [facility] [id number] 5Q-20 Univers 16:30:00 16:30:00 ANATOLY [id number] ity [facility] 2020-01-10 2020-01-10 Outpatient R [facility] [id number] Univers 16:30:00 16:30:00 [facility] 2019-12-10 2019-12-10 Orders Doctor TOM 1..840.114 [id number] Univers 00:00:00 00:00:00 Only Unassigned, AIDA 350.1.13.10 ity of [place] [facility] 4.2.7.2.686 Raffy as [phone] [facility] [address] [place] 2019-12-10 2019-12-10 Telephone [facility] 1.2.840.114 [id number] Univers 00:00:00 00:00:00 Anatoly Hawkins 350.1.13.10 i ty of [place] [phone] [facility] 220 [facility] 2019-12-05 2019-12-05 [facility] 1.2.347.794 [id number] Univers 00:00:00 00:00:00 Anatoly Hawkins 350.1.13.10 i ty of [place].2.[place] [phone] [facility] 220 [facility] 2019-11-06 2019-11-06 Outpatient R [facility] [id number] -[id number] Univers 15:40:00 15:40:00 LILY [id number] itmargarette o [facility] 2019-11-06 2019-11-06 Outpatient R [facility] [id number] Univers 15:40:00 15:40:00 LILY turner o [facility] 2019-11-03 2019-11-03 [facility] 1.2.840.114 [id number] Univers 00:00:00 00:00:00 Wondiful A [facility] 350.1.13.10 ity of [place] 4.2.7.2.686 Raffy as Professio [phone] [facility] [address] [place] Office Building One 2019-11-01 2019-11-01 Outpatient R KILO [facility] [id number] Univers 11:35:42 23:59:00 ENRST ity [facility] 2019-11-01 2019-11-01 [facility] .2.840.114 [id number] Univers 11:35:00 23:59:00 Encounter Ernst Hawkins 350.1.13.10 ity of [place].2.[place].2.[place] [phone] [address] 2019-11-01 2019-11-01 Outpatient R [facility] [id number] 5Q-20 Univers 11:40:00 11:40:00 ERNST [id number] ity [facility] 2019-11-01 2019-11-01 Orders Doctor VAISHALI 1.2.840.114 [id number] Univers 00:00:00 00:00:00 Only Unassigned, AIDA 350.1.13.10 ity of [place] [facility] 4.2.7.2.686 Raffy as [phone] [address] 2019-10-25 2019-10-25 Outpatient R KILO [facility] [id number] 5Q-20 Univers 00:00:00 00:00:00 ERNST [id number] [facility] 2019-10-11 2019-10-11 [facility] [id number] Univers 14:59:15 16:12:30 Visit Ernst Hawkins 350.1.13.10 i [place] [phone] [place] dical nal 134 [facility] 2019-10-11 2019-10-11 Outpatient R KILO [facility] [id number] [id number] Univers 15:00:00 15:00:00 ERNST [id number] [facility] 2019-10-11 2019-10-11 [facility] [id number] Univers 15:00:00 15:00:00 ERNST [facility] 2019-10-11 2019-10-11 Orders Doctor VAISHALI [id number] Univers 00:00:00 00:00:00 Only Unassigned, AIDA 350.1.13.10 ity of [place] [facility] 4.2.7.2.686 Raffy as [phone] [address] 2019-10-07 2019-10-07 [facility] [id number] Univers 14:00[facility]00 [facility]00[facility] 2019-[facility]30 [facility] [id number] Univers 00:00:00 00:00:00 Anatoly Hawkins 350.1.13.10 i [place] [phone] Me dical nal 220 [facility] 2019-09-20 2019-09-20 Outpatient R MARK [facility] [id number] Univers 16:30:00 16:30:00 ANATOLY itmargarette [facility] 2019-09-20 2019-09-20 [facility] [id number] Univers 09:52:35 10:22:35 ne Visit Anatoly Hawkins 350.1.13.10 it[place] [phone] [place] dical nal 220 [facility] 2019-08-30 2019-08-30 Registered Vascular Technologist (Rvt) 2, Adc Lab [facility] 1..840.114 [id number] Univers 09:08:00 09:23:00 Visit Gregory Lily Hawkins 350.1.13.10 [place] of [place] [phone] [facility] 353 [facility] 2019-08-30 2019-08-30 Outpatient R [facility] [id number] Univers 09:15:00 09:15:00 [id number] ity of [facility] 2019-08-30 2019-08-30 Outpatient [facility] [id number] Univers 09:15:00 09:15:00 LILY ity o [facility] 2019-08-30 2019-08-30 Orders Doctor TOM 1.2.840.114 [id number] Univers 00:00:00 00:00:00 Only Unassigned, AIDA 350.1.13.10 ity of [facility] 4.2.7.2.686 Raffy as [phone] [address] 2019-08-22 2019-08-22 Outpatient R IGOR [facility] [id number] Univers 14:00:00 14:00:00 WONDIFUL [id number] ity o f [facility] 2019-08-22 2019-08-22 Outpatient R [facility] [id number] Univers 14:00:00 14:00:00 WONDIFUL ity o f [facility] 2019-08-22 2019-08-22 [facility] 1.2.840.114 [id number] Univers 09:19:01 09:49:01 ne Visit [facility] 350.1.13.10 ity of [place] 4.2.7.2.686 [place]aff[place] Professio [phone] [facility] 044 [facility] 2019-08-22 2019-08-22 Transition Matthew Chávez 1.2.840.114 [id number] Univers 00:00:00 00:00:00 of Care Jessica Mata 350.1.13.10 it [place] of [place] [phone] [facility] [address] 2019-08-20 2019-08-20 Transition Matthew Chávez 1.2.840.114 [id number] Univers 00:00:00 00:00:00 of Care Jessica Mata 350.1.13.10 it [place] of [place] [phone] [facility] [address] 2019-08-19 2019-08-19 [facility]phone [facility] 1.2.840.114 [id number] Univers 00:00:00 00:00:00 [facility] 350.1.13.10 ity of [place] 4.2.7.2.686 [place] Professio [phone] [address] 2019-08-12 2019-08-16 Inpatient U [facility] [id number] Univers 22:36:00 12:57:00 RHIANNA ity o f [facility] 2019-08-12 2019-08-16 [facility] Diana Romano 1.2.840.114 [id number] Univers 22:36:00 12:57:00 Encounter Rhianna Malta 350.1.13.10 ity of Hospital 4.2.7.2.686 [place]affy as [phone] [facility] [address] 2019-08-16 2019-08-16 Outpatient R [facility] [id number] -[id number] Univers 10:00:00 10:00:00 [id number] ity of [facility] 2019-08-16 2019-08-16 Outpatient R [facility] [id number] Univers 10:00:00 10:00:00 ity of [facility] 2019-08-12 2019-08-12 [facility] 1.2.824.500 [id number] Univers 00:00:00 00:00:00 Lily Hawkins 350.1.13.10 [place] [phone] [address] 2019-08-09 2019-08-09 Telephone GregoryDiana 1.2.209.585 [id number] Univers 00:00:00 00:00:00 Lily Parra 350.1.13.10 i ty of [facility] 4.2.7.2.686 [place] as [phone] [address] 2019-08-07 2019-08-07 Telephone GregoryDiana 1.2.032.307 [id number] Univers 00:00:00 00:00:00 Lily Zhuy 350.1.13.10 i ty of [place] [address].2.7.2.686 Raffy as [phone] [address] 2019-08-05 2019-08-06 [facility] 1.2.840.114 [id number] Univers 10:54:42 21:31:12 Visit Lily Hawkins 350.1.13.10 it[place] of [place] [phone] [address] 2019-08-05 2019-08-05 Outpatient R GREGORY [facility] [id number] Univers 11:20:00 11:20:00 LILY roy o f [facility] 2019-08-05 2019-08-05 Orders Doctor VAISHALI 1.2.840.114 [id number] Univers 00:00:00 00:00:00 Only Unassigned, AIDA 350.1.13.10 ity of [place] [facility] 4.2.7.2.686 Raffy as [phone] [address] 2019-02-04 2019-02-04 [facility] 1.2.840.114 [id number] Univers 09:40:44 10:41:11 Visit Lily Hawkins 350.1.13.10 it[place] of [place] [phone] Az dical nal 059 [facility] 2019-02-04 2019-02-04 Orders Doctor VAISHALI 1.2.840.114 [id number] Univers 00:00:00 00:00:00 Only Unassigned, AIDA 350.1.13.10 ity of [place] [facility] 4.2.7.2.686 Raffy as [phone] [address] 2019-01-04 2019-01-04 Office Mark [facility] 1.2.222.600 [id number] Univers 14:30:15 15:51:35 Visit Anatoly Hawkins 350.1.13.10 i ty of [place] [phone] Az dical nal 220 [facility] 2019-01-04 2019-01-04 Orders Doctor VAISHALI 1.2.840.114 [id number] Univers 00:00:00 00:00:00 Only Unassigned, AIDA 350.1.13.10 ity of [place] [facility] 4.2.7.2.686 Raffy as [phone] [address] 2018-12-20 2018-12-20 Orders Doctor VAISHALI 1.2.840.114 [id number] Univers 00:00:00 00:00:00 Only Unassigned, AIDA 350.1.13.10 ity of [place] [facility] 4.2.7.2.686 [place]aff[place] as [phone] [address] 2018-12-06 2018-12-06 Orders Doctor VAISHALI 1.2.840.114 [id number] Univers 00:00:00 00:00:00 Only Unassigned, AIDA 350.1.13.10 ity of [place] [facility] 4.2.7.2.686 Raffy as [phone] [address] 2018-06-27 2018-06-27 [facility] [id number] 11:57:00 11:57:00 [facility] 2018-06-15 2018-06-15 [facility] [id number] 16:24:00 16:24:00 tracx s [facility] 2018-06-13 2018-06-13 [facility] [id number] 13:30:00 13:30:00 [employer] [facility] 2017-12-12 2017-12-12 [facility] [id number] 13:22:00 13:22:00 [employer] [facility] 2017-11-20 2017-11-20 [facility] [id number] 10:30:00 10:30:00 [employer] [facility] 2017-11-02 2017-11-02 [facility] [id number] 15:15:00 15:15:00 [facility] Results Test Description Test Time Test Comments Results Result Comments Source POCT GLUCOSE (AUTOMATED) 2021-02-12 21:30:54 Test Item Value Reference Range Interpretation Comme nts POCT GLU (test code = 2783040770) 441 mg/dL 70-110 H Lab Interpretation (test code = 16248-8) Abnormal [facility]2021-02-12 21:30:54 Test Item Value Reference Range Interpretation Comments POCT GLU (test code = 6163875344) 441 mg/dL 70-110 H Lab Interpretation (test code = Abnormal 08230-4) [facility] METABOLIC PANEL (NA, K, CL, CO2, GLUCOSE, BUN, CREATININE, CA)2021-02-12 21:22:44 Test Item Value Reference Range Interpretation Comments NA (test code = 128 mmol/L 135-145 L 7019905476) K (test code = 4.3 mmol/L 3.5-5.0 8103899564) CL (test code = 99 mmol/L 98-108 1000086863) CO2 TOTAL (test code = 19 mmol/L 23-31 L 8087585574) AGAP (test code = 2-16 3713145858) BUN (test code = 13 mg/dL 7-23 1814289766) GLUCOSE (test code = 522 mg/dL 70-110 HH 3016040529) CREATININE (test code = 0.62 mg/dL 0.50-1.04 5617574879) CALCIUM (test code = 8.2 mg/dL 8.6-10.6 L 6813868863) eGFR (test code = mL/min/1.73m2 6220191624) NISHA (test code = NISHA) Association of [...] tests). Lab Interpretation Abnormal (test code = 74755-8) [facility] METABOLIC PANEL (NA, K, CL, CO2, GLUCOSE, BUN, CREATININE, CA)2021-02-12 21:22:44 Test Item Value Reference Range Interpretation Comments NA (test code = 128 mmol/L 135-145 L 2858721570) K (test code = 4.3 mmol/L 3.5-5.0 2014501381) CL (test code = 99 mmol/L 98-108 0564899057) CO2 TOTAL (test code = 19 mmol/L 23-31 L 9940656087) AGAP (test code = 2-16 5852803726) BUN (test code = 13 mg/dL 7-23 1624979408) GLUCOSE (test code = 522 mg/dL 70-110 HH 4002531759) CREATININE (test code = 0.62 mg/dL 0.50-1.04 2594016191) CALCIUM (test code = 8.2 mg/dL 8.6-10.6 L 2112926787) eGFR (test code = mL/min/1.73m2 8547388608) NISHA (test code = NISHA) Association of [...] tests). Lab Interpretation Abnormal (test code = 39498-7) [facility] WITH [id number] 20:50:11 Test Item Value Reference Range Interpretation Comments WBC (test code = See_Comment [Automated message] 6690-2) The system [employer] generated this result transmitted ref erence range: 4.30 - 1 1.10 10*3/?L. The re ference range was not u sed to interpret this result as normal/abnor mal. RBC (test code = See_Comment [Automated message] 789-8) The system [employer] generated this result transmitted ref erence range: [...] RDW-SD (test code 40.4 fL 39.0-49.9 = 16095-0) RDW-CV (test code 12.7 % 12.0-15.5 = 788-0) PLT (test code = See_Comment [Automated message] 777-3) The system [employer] generated this result transmitted ref erence range: 166 - 35 8 10*3/?L. The re ference range was not u sed to interpret this result as normal/abnor mal. MPV (test code = 10.3 fL 9.5-12.9 91100-6) NRBC/100 WBC (test See_Comment [Automat ed message] code = 6184636670) The [employer] which generated this result transmitted ref erence range: 0.0 - 10 .0 /100 WBCs. The refer ence range was not u sed to interpret this result as normal/abnor mal. NRBC x10^3 (test <0.01 See_Comment [Automated message] code = 9530084087) The syste m which generated this result transmitted ref erence range: 10*3/?L. The reference range was not used to interpr et this result as normal/abnormal . GRAN MAT (NEUT) % 68.0 % (test code = 770-8) IMM GRAN % (test 0.30 % code = 4635723439) LYMPH % (test code 23.0 % = 736-9) MONO % (test code 5.0 % = 5905-5) EOS % (test code = 3.0 % 713-8) BASO % (test code 0.7 % = 706-2) GRAN MAT 6.52 10*3/uL 1.88-7.09 x10^3(ANC) (test code = 5671023211) IMM GRAN x10^3 0.03 10*3/uL 0.00-0.06 (test code = 5369041171) LYMPH x10^3 (test 2.21 10*3/uL 1.32-3.29 code = 731-0) MONO x10^3 (test 0.48 10*3/uL 0.33-0.92 code = 742-7) EOS x10^3 (test 0.29 10*3/uL 0.03-0.39 code = 711-2) BASO x10^3 (test 0.07 10*3/uL 0.01-0.07 code = 704-7) [facility] WITH [id number] 20:50:11 Test Item Value Reference Range Interpretation Comments WBC (test code = See_Comment [Automated message] 9590-2) The system [employer] generated this result transmitted ref erence range: 4.30 - 1 1.10 10*3/?L. The re ference range was not u sed to interpret this result as normal/abnor mal. RBC (test code = See_Comment [Automated message] 019-8) The system [employer] generated this result transmitted ref erence range: [...] RDW-SD (test code 40.4 fL 39.0-49.9 = 89120-2) RDW-CV (test code 12.7 % 12.0-15.5 = 788-0) PLT (test code = See_Comment [Automated message] 777-3) The system whic h generated this result transmitted ref erence range: 166 - 35 8 10*3/?L. The re ference range was not u sed to interpret this result as normal/abnor mal. MPV (test code = 10.3 fL 9.5-12.9 62446-0) NRBC/100 WBC (test See_Comment [Automat ed message] code = 7633209212) The syste m which generated this result transmitted ref erence range: 0.0 - 10 .0 /100 WBCs. The refer ence range was not u sed to interpret this result as normal/abnor mal. NRBC x10^3 (test <0.01 See_Comment [Automated message] code = 7371964402) The syste m which generated this result transmitted ref erence range: 10*3/?L. The reference range was not used to interpr et this result as normal/abnormal . GRAN MAT (NEUT) % 68.0 % (test code = 770-8) IMM GRAN % (test 0.30 % code = 1747384806) LYMPH % (test code 23.0 % = 736-9) MONO % (test code 5.0 % = 5905-5) EOS % (test code = 3.0 % 713-8) BASO % (test code 0.7 % = 706-2) GRAN MAT 6.52 10*3/uL 1.88-7.09 x10^3(ANC) (test code = 2070353013) IMM GRAN x10^3 0.03 10*3/uL 0.00-0.06 (test code = 9996047164) LYMPH x10^3 (test 2.21 10*3/uL 1.32-3.29 code = 731-0) MONO x10^3 (test 0.48 10*3/uL 0.33-0.92 code = 742-7) EOS x10^3 (test 0.29 10*3/uL 0.03-0.39 code = 711-2) BASO x10^3 (test 0.07 10*3/uL 0.01-0.07 code = 704-7) [facility] GLUCOSE (AUTOMATED)2021-02-12 19:42:22 Test Item Value Reference Range Interpretation Comments POCT GLU (test code = 5469099068) 558 mg/dL 70-110 HH Lab Interpretation (test code = Abnormal 04544-5) [facility] GLUCOSE (AUTOMATED)2021-02-12 19:42:22 Test Item Value Reference Range Interpretation Comments POCT GLU (test code = 0679258342) 558 mg/dL 70-110 HH Lab Interpretation (test code = Abnormal 30161-2) [facility] GLUCOSE (AUTOMATED)2021-01-17 18:00:29 Test Item Value Reference Range Interpretation Comments POCT GLU (test code = 2514425581) 327 mg/dL 70-110 H Lab Interpretation (test code = Abnormal 91253-4) [facility] GLUCOSE (AUTOMATED)2021-01-17 13:28:29 Test Item Value Reference Range Interpretation Comments POCT GLU (test code = 7508180053) 374 mg/dL 70-110 H Lab Interpretation (test code = Abnormal 54544-5) [facility] METABOLIC PANEL (NA, K, CL, CO2, GLUCOSE, BUN, CREATININE, CA)2021-01-17 09:28:24 Test Item Value Reference Range Interpretation Comments NA (test code = 132 mmol/L 135-145 L 7658855347) K (test code = 4.5 mmol/L 3.5-5.0 8866857907) CL (test code = 106 mmol/L 98-108 4857724139) CO2 TOTAL (test code = 23 mmol/L 23-31 2263709238) AGAP (test code = 2-16 3644145660) BUN (test code = 19 mg/dL 7-23 4420908873) GLUCOSE (test code = 383 mg/dL 70-110 H 2103031640) CREATININE (test code = 0.71 mg/dL 0.50-1.04 9622819064) CALCIUM (test code = 7.9 mg/dL 8.6-10.6 L 1196115138) eGFR (test code = mL/min/1.73m2 7841650464) NISHA (test code = NISHA) Association of [...] tests). Lab Interpretation Abnormal (test code = 30004-3) [facility] WITH [id number] 09:16:04 Test Item Value Reference Range Interpretation Comments WBC (test code = See_Comment [Automated message] 6690-2) The system [employer] generated this result transmitted ref erence range: 4.30 - 1 1.10 10*3/?L. The re ference range was not u sed to interpret this result as normal/abnor mal. RBC (test code = See_Comment [Automated message] 789-8) The system [employer] generated this result transmitted ref erence range: [...] RDW-SD (test code 39.3 fL 39.0-49.9 = 41143-6) RDW-CV (test code 12.4 % 12.0-15.5 = 788-0) PLT (test code = See_Comment [Automated message] 777-3) The system [employer] generated this result transmitted ref erence range: 166 - 35 8 10*3/?L. The re ference range was not u sed to interpret this result as normal/abnor mal. MPV (test code = 11.0 fL 9.5-12.9 24305-2) NRBC/100 WBC (test See_Comment [Automat ed message] code = 1032387302) The syste [employer] which generated this result transmitted ref erence range: 0.0 - 10 .0 /100 WBCs. The refer ence range was not u sed to interpret this result as normal/abnor mal. NRBC x10^3 (test <0.01 See_Comment [Automated message] code = 6924736136) The syste m which generated this result transmitted ref erence range: 10*3/?L. The reference range was not used to interpr et this result as normal/abnormal . GRAN MAT (NEUT) % 52.9 % (test code = 770-8) IMM GRAN % (test 0.40 % code = 6569467263) LYMPH % (test code 35.0 % = 736-9) MONO % (test code 6.7 % = 5905-5) EOS % (test code = 4.0 % 713-8) BASO % (test code 1.0 % = 706-2) GRAN MAT 3.88 10*3/uL 1.88-7.09 x10^3(ANC) (test code = 0467793491) IMM GRAN x10^3 0.03 10*3/uL 0.00-0.06 (test code = 9325304295) LYMPH x10^3 (test 2.56 10*3/uL 1.32-3.29 code = 731-0) MONO x10^3 (test 0.49 10*3/uL 0.33-0.92 code = 742-7) EOS x10^3 (test 0.29 10*3/uL 0.03-0.39 code = 711-2) BASO x10^3 (test 0.07 10*3/uL 0.01-0.07 code = 704-7) [facility] GLUCOSE (AUTOMATED)2021-01-16 22:25:02 Test Item Value Reference Range Interpretation Comments POCT GLU (test code = 1798150263) 301 mg/dL 70-110 H Lab Interpretation (test code = Abnormal 05426-7) [facility] GLUCOSE (AUTOMATED)2021-01-16 21:22:23 Test Item Value Reference Range Interpretation Comments POCT GLU (test code = 6132999964) 228 mg/dL 70-110 H Lab Interpretation (test code = Abnormal 59713-3) [facility], [id number] 19:28:10 Test Item Value Reference Range Interpretation Comments dLDL Chol (test code = 99527-6) 51 mg/dL <130 Lab Interpretation (test code = Normal 48886-1) [facility] GLUCOSE (AUTOMATED)2021-01-16 13:20:02 Test Item Value Reference Range Interpretation Comments POCT GLU (test code = 9473813742) 282 mg/dL 70-110 H Lab Interpretation (test code = Abnormal 86041-0) [facility] (Total Cholesterol, Triglycerides, HDL) - [id number] 10:51:04 Test Item Value Reference Range Interpretation Comments CHOL (test code = 123 mg/dL 120-200 4584068064) HDL (test code = 24 mg/dL >50 L 7677562313) HDLC RATIO (test code = See_Comment H [Au tomated message] 4418157632) The system [employer] generated this result transmitted ref erence range: <=4.5. T he reference range was not used to int erpret this result as normal/abnormal . TRIG (test code = 437 mg/dL 30-170 H 0214819083) LDL CHOL (test code = Unable to calculate 43322-4) LDL due to elev ated triglyceride le sweetie greater than 40 0 mg/dL. VLDL (test code = 87 mg/dL 5-60 H 7975977025) Lab Interpretation Abnormal (test code = 86279-6) [facility] Metabolic Panel (NA, K, CL, CO2, GLUCOSE, BUN, CREATININE, CA)2021-01-16 10:50:48 Test Item Value Reference Range Interpretation Comments NA (test code = 134 mmol/L 135-145 L 2786327309) K (test code = 2.7 mmol/L 3.5-5.0 LL 6231529617) CL (test code = 101 mmol/L 98-108 8865186546) CO2 TOTAL (test code = 24 mmol/L 23-31 9222151784) AGAP (test code = 2-16 5643821241) BUN (test code = 15 mg/dL 7-23 8946857505) GLUCOSE (test code = 160 mg/dL 70-110 H 4996446792) CREATININE (test code = 0.69 mg/dL 0.50-1.04 3034747636) CALCIUM (test code = 8.5 mg/dL 8.6-10.6 L 3945628087) eGFR (test code = mL/min/1.73m2 2801185716) NISHA (test code = NISHA) Association of [...] tests). Lab Interpretation Abnormal (test code = 80342-9) [facility]lands[facility] [id number] 10:35:20 Test Item Value Reference Range Interpretation Comments MAGNESIUM (test code = 6220820090) 1.5 mg/dL 1.7-2.4 L Lab Interpretation (test code = Abnormal 33275-7) [facility] with [id number] 10:03:39 Test Item Value Reference Range Interpretation Comments WBC (test code = See_Comment [Automated 8711-2) message] The sy stem which generated this result transmitted reference range : 4.30 - 11.10 10*3/?L. The reference range was not used to interpret this result as normal/abnormal . RBC (test code = See_Comment [Automated 639-8) message] The sy stem which generated this [...] (test code = 37.2 fL 39.0-49.9 L 58967-0) RDW-CV (test code = 12.1 % 12.0-15.5 788-0) PLT (test code = See_Comment [Automated 777-3) message] The sy stem which generated this result transmitted reference range : 166 - 358 10*3/ ?L. The reference r chelsie was not used to interpret this result as normal/abnormal . MPV (test code = 10.9 fL 9.5-12.9 29080-7) NRBC/100 WBC (test See_Comment [Automat ed code = 4104766805) message] The system which generated this result transmitted reference range : 0.0 - 10.0 /100 WBCs. The refer ence range was not u sed to interpret th is result as normal/abnormal . NRBC x10^3 (test code <0.01 See_Comment [Auto mated = 1999194391) message] The s [employer]stem which generated this result transmitted reference range : 10*3/?L. The reference range was not used to interpret this result as normal/abnormal . GRAN MAT (NEUT) % 37.0 % (test code = 770-8) IMM GRAN % (test code 0.30 % = 5854807256) LYMPH % (test code = 47.8 % 736-9) MONO % (test code = 8.6 % 5905-5) EOS % (test code = 5.0 % 713-8) BASO % (test code = 1.3 % 706-2) GRAN MAT x10^3(ANC) 2.37 10*3/uL 1.88-7.09 (test code = 2815299093) IMM GRAN x10^3 (test <0.03 0.00-0.06 code = 6855453351) LYMPH x10^3 (test code 3.06 10*3/uL 1.32-3.29 = 731-0) MONO x10^3 (test code 0.55 10*3/uL 0.33-0.92 = 742-7) EOS x10^3 (test code = 0.32 10*3/uL 0.03-0.39 711-2) BASO x10^3 (test code 0.08 10*3/uL 0.01-0.07 H = 704-7) Lab Interpretation Abnormal (test code = 23267-1) [facility] GLUCOSE (AUTOMATED)2021-01-16 08:30:27 Test Item Value Reference Range Interpretation Comments POCT GLU (test code = 0421410111) 171 mg/dL 70-110 H Lab Interpretation (test code = Abnormal 47557-6) [facility] GLUCOSE (AUTOMATED)2021-01-16 03:57:09 Test Item Value Reference Range Interpretation Comments POCT GLU (test code = 2333779442) 407 mg/dL 70-110 H Lab Interpretation (test code = Abnormal 64348-7) [facility] COVID [id number] 02:31:30COVID DMT InterpretationInterpretation/Recommendations:Molecular NAAT Tests for Active [...] 1-2 weeks prior to antibody testing, any lelskvbhRUVD-BgP-6 IgG antibody result is likely due to [...] COVID-19 testing the patient has had at [facility], including molecular NAAT testing (more commonly known as PCR testing and Rapid ID Now testing) and antibody testing. It does not take into account any testing that a patient has had outside of the [facility] medical record. [facility] LABORATORY SERVICESCOVID RkivmxkJQRO-BwB-0 Rapid ID NOW (no units) ? ? Date ? Value ? 01/15/2021 ? Not Detected ? ? ? 11/30/2020 ? Not Detected ? ? ? 09/05/2020 ? Not Detected ? [facility] SERVICESUnHend[facility] BrownwoodUrinalysis2021-08-21 02:28:46 Test Item Value Reference Range Interpretation Comments APPEARANCE (test code = Hazy Clear A 2222917299) COLOR (test code = Yellow Yellow 7836216541) PH (test code = 4.8-8.0 0188757310) SP GRAVITY (test code = 1.003-1.030 6167109808) GLU U QUAL (test code = 500 mg/dL Normal A 3282962590) BLOOD (test code = 1+ Negative A 1994691407) KETONES (test code = Negative Negative 5476813336) PROTEIN (test code = Negative Negative 2887-8) UROBILIN (test code = Normal Normal 1672721770) BILIRUBIN (test code = Negative Negative 4706675991) NITRITE (test code = Negative Negative 6712097238) LEUK JOSEFA (test code = 500/uL Negative A 1998980388) RBC/HPF (test code = See_Comment H [Autom ated message] 6393943847) The system [employer] generated this result transmit anthony reference range : 0 - 3 HPF. The refe rence range was not u sed to interpret th is result as normal/abnormal . WBC/HPF (test code = See_Comment H [Autom ated message] 8583094060) The system [employer] generated this result transmit anthony reference range : 0 - 5 HPF. The refe rence range was not u sed to interpret th is result as normal/abnormal . BACTERIA (test code = Few Negative A 0375377948) MUCOUS (test code = Slight Negative LPF A 9820999192) SQ EPITH (test code = HPF 5416535984) Lab Interpretation (test Abnormal code = 49217-7) [facility]-16 01:20:09 Test Item Value Reference Range Interpretation Comments POCT GLU (test code = 9408010113) 525 mg/dL 70-110 HH Lab Interpretation (test code = Abnormal 26113-1) [facility] Hormone (TSH)2021-01-16 00:51:02 Test Item Value Reference Range Interpretation Comments TSH (test code = See_Comment [Automated message] [id number]) The system [employer] generated this result transmitted ref erence range: 0.45 - 4 .70 mIU/L. The refe rence range was not u sed to interpret this result as normal/abnor mal. Lab Interpretation (test Normal code = 51544-5) [facility] Z9832-04-77 00:32:40 Test Item Value Reference Interpretation Comments Range TROPONIN I (test 0.006 ng/mL See_Comment [Automated code = 8853670304) message] The system which generated this result [...] biotin. Lab Interpretation Normal (test code = 69655-3) [facility]lands[facility] (20225) (ALB,T.PRO,BILI T,BU/BC,ALT,AST,ALK PHOS)2021-01-16 00:20:20 Test Item Value Reference Range Interpretation Comments TOTAL BILI (test code = 7203631064) 0.8 mg/dL 0.1-1.1 BILI UNCON (test code = 1327184285) 0.5 mg/dL 0.1-1.1 BILI CONJ (test code = 3652622614) 0.0 mg/dL 0.0-0.3 T PROTEIN (test code = 2606034809) 7.6 g/dL 6.3-8.2 ALBUMIN (test code = 1992092118) 4.0 g/dL 3.5-5.0 ALK PHOS (test code = 9100887886) 159 U/L 34-122 H ALTv (test code = 1742-6) 18 U/L 5-35 AST(SGOT) (test code = 1898867709) 27 U/L 13-40 Lab Interpretation (test code = Abnormal 75085-5) [facility]landsPhosphorus [id number] 00:19:59 Test Item Value Reference Range Interpretation Comments PHOSPHORUS (test code = 1626280707) 3.4 mg/dL 2.5-5.0 Lab Interpretation (test code = Normal 78472-0) [facility]landsGlycosylated Hemoglobin (A1C)2021-01-16 00:15:56 Test Item Value Reference Range Interpretation Comments HGB A1C (test code = >14.0 4.0-5.7 H 4548-4) NISHA (test code = NISHA) Reference RangesNormal: <5.7%Prediabetes: 5.7 - 6.4%Diabetes: > 6.5% Lab Interpretation (test Abnormal code = 22984-3) [facility] GLUCOSE (AUTOMATED)2021-01-15 22:36:13 Test Item Value Reference Range Interpretation Comments POCT GLU (test code = 4687367081) 565 mg/dL 70-110 HH Lab Interpretation (test code = Abnormal 73206-0) [facility]COVID-19 (ID NOW RAPID TESTING)2021-01-15 21:10:19 Test Item Value Reference Range Interpretation Comments SARS-CoV-2 Rapid ID NOW Not Detected Not Detected (test code = 46873-9) NISHA (test code = NISHA) ID NOW COVID-19 Assay is an isothermal nucleic acid amplification test intended for the qualitative detection of nucleic acid from SARS-CoV-2 viral RNA in nasopharyngeal (GLOBAL TECHNICAL WRITER) specimens. It is used under Emergency Use [...] indicated. Lab Interpretation Normal (test code = 47782-8) [facility] HEMOGLOBIN A1C [id number] 16:42:00 Test Item Value Reference Range Interpretation Comments POCT HBA1C (test code = 4548-4) 14 % 4-6 A Lab Interpretation (test code = Abnormal 09504-4) [facility] HEMOGLOBIN A1C [id number] 16:42:00 Test Item Value Reference Range Interpretation Comments POCT HBA1C (test code = 4548-4) 14 % 4-6 A Lab Interpretation (test code = Abnormal 02615-9) [facility] GLUCOSE (AUTOMATED)2020-12-01 17:40:09 Test Item Value Reference Range Interpretation Comments POCT GLU (test code = 350 mg/dL 70-110 H Notifi ed Provider [id number]) Lab Interpretation (test Abnormal code = 92338-6) [facility]landsPOVT GLU[facility]SE (AUTOMATED)2020-12-01 13:22:36 Test Item Value Reference Range Interpretation Comments POCT GLU (test code = 5897179959) 215 mg/dL 70-110 H Lab Interpretation (test code = Abnormal 77967-0) [facility] Metabolic Panel (NA, K, CL, CO2, GLUCOSE, BUN, CREATININE, CA)2020-12-01 11:30:25 Test Item Value Reference Range Interpretation Comments NA (test code = 135 mmol/L 135-145 7936054712) K (test code = 4.0 mmol/L 3.5-5.0 2220658093) CL (test code = 104 mmol/L 98-108 2784465176) CO2 TOTAL (test code = 21 mmol/L 23-31 L 9459480078) AGAP (test code = 2-16 2001888558) BUN (test code = 13 mg/dL 7-23 8783396167) GLUCOSE (test code = 388 mg/dL 70-110 H 3881992828) CREATININE (test code = 0.69 mg/dL 0.50-1.04 3245837870) CALCIUM (test code = 8.0 mg/dL 8.6-10.6 L 2035644653) eGFR (test code = mL/min/1.73m2 1065245672) NISHA (test code = NISHA) Association of [...] tests). Lab Interpretation Abnormal (test code = 61369-9) [facility]landsMagnesium [id number] 11:30:25 Test Item Value Reference Range Interpretation Comments MAGNESIUM (test code = 6070169633) 1.6 mg/dL 1.7-2.4 L Lab Interpretation (test code = Abnormal 18679-2) [facility] with [id number] 10:38:41 Test Item Value Reference Range Interpretation Comments WBC (test code = See_Comment [Automated 1190-2) message] The sy stem which generated this result transmitted reference range : 4.30 - 11.10 10*3/?L. The reference range was not used to interpret this result as normal/abnormal . RBC (test code = See_Comment [Automated 749-8) message] The sy stem which generated this [...] (test code = 38.6 fL 39.0-49.9 L 17260-5) RDW-CV (test code = 12.1 % 12.0-15.5 788-0) PLT (test code = See_Comment [Automated 917-3) message] The sy stem which generated this result transmitted reference range : 166 - 358 10*3/ ?L. The reference r chelsie was not used to interpret this result as normal/abnormal . MPV (test code = 10.6 fL 9.5-12.9 37898-6) NRBC/100 WBC (test See_Comment [Automat ed code = 7410244111) message] The system which generated this result transmitted reference range : 0.0 - 10.0 /100 WBCs. The refer ence range was not u sed to interpret th is result as normal/abnormal . NRBC x10^3 (test code <0.01 See_Comment [Auto mated = 6350194786) message] The s ystem which generated this result transmitted reference range : 10*3/?L. The reference range was not used to interpret this result as normal/abnormal . GRAN MAT (NEUT) % 73.2 % (test code = 770-8) IMM GRAN % (test code 0.40 % = 9937385281) LYMPH % (test code = 18.4 % 736-9) MONO % (test code = 5.6 % 5905-5) EOS % (test code = 2.0 % 713-8) BASO % (test code = 0.4 % 706-2) GRAN MAT x10^3(ANC) 7.52 10*3/uL 1.88-7.09 H (test code = 8642360699) IMM GRAN x10^3 (test 0.04 10*3/uL 0.00-0.06 code = 0163241060) LYMPH x10^3 (test code 1.89 10*3/uL 1.32-3.29 = 731-0) MONO x10^3 (test code 0.58 10*3/uL 0.33-0.92 = 742-7) EOS x10^3 (test code = 0.21 10*3/uL 0.03-0.39 711-2) BASO x10^3 (test code 0.04 10*3/uL 0.01-0.07 = 704-7) Lab Interpretation Abnormal (test code = 42105-2) [facility] GLUCOSE (AUTOMATED)2020-12-01 02:30:55 Test Item Value Reference Range Interpretation Comments POCT GLU (test code = 5292611125) 347 mg/dL 70-110 H Lab Interpretation (test code = Abnormal 76332-9) [facility]landsACTIVATED PARTIAL THRMPLAS [id number] 01:05:55 Test Item Value Reference Range Interpretation Comments APTT Patient (test code See_Comment H [Au tomated message] = 3173-2) The system [employer] generated this result transmitted ref erence range: 26 - 36 Seconds. The reference range was not used to int erpret this result as normal/abnormal . Lab Interpretation (test Abnormal code = 88556-9) [facility]landsLAB ONLY COVID [id number] 22:44:24COVID DMT InterpretationInterpretation/Recommendations:Molecular NAAT Tests for Active [...] COVID-19 testing the patient has had at [facility], including molecular NAAT testing (more commonly known as PCR testing and Rapid ID Now testing) and antibody testing. It does not take into account any testing that a patient has had outside of the [facility] medical record. [facility] LABORATORY SERVICESCOVID ResultsSARS- CoV-2 Rapid ID NOW (no units) ? ? Date ? Value ? 11/30/2020 ? Not Detected ? ? ? 09/05/2020 ? Not Detected ? [facility]Un[facility] POCT ACT LOW [id number] 22:26:21 Test Item Value Reference Range Interpretation Comments ACTLR (test code = See_Comment H [Automat ed message] 6503717028) The system [employer] generated this result transmitted ref erence range: 89 - 169 Seconds. The reference range was not used to int erpret this result as normal/abnormal . Lab Interpretation (test Abnormal code = 96839-9) [facility]landsPOCT ACT LOW [id number] 22:03:24 Test Item Value Reference Range Interpretation Comments ACTLR (test code = See_Comment H [Automat ed message] 5661370954) The system [employer] generated this result transmitted ref erence range: 89 - 169 Seconds. The reference range was not used to int erpret this result as normal/abnormal . Lab Interpretation (test Abnormal code = 88937-4) [facility]landsBASIC METABOLIC PANEL (NA, K, CL, CO2, GLUCOSE, BUN, CREATININE, CA)2020-11-30 16:00:24 Test Item Value Reference Range Interpretation Comments NA (test code = 130 mmol/L 135-145 L 4554909801) K (test code = 3.8 mmol/L 3.5-5.0 1566054199) CL (test code = 98 mmol/L 98-108 1675906518) CO2 TOTAL (test code = 25 mmol/L 23-31 5903523449) AGAP (test code = 2-16 4899811681) BUN (test code = 12 mg/dL 7-23 6971242621) GLUCOSE (test code = 624 mg/dL 70-110 HH 1878415471) CREATININE (test code = 0.63 mg/dL 0.50-1.04 5659126120) CALCIUM (test code = 8.2 mg/dL 8.6-10.6 L 5672039721) eGFR (test code = mL/min/1.73m2 9313634029) NISHA (test code = NISHA) Association of [...] tests). Lab Interpretation Abnormal (test code = 60419-6) [facility]ID [facility]2020-11-30 13:55:18 Test Item Value Reference Range Interpretation Comments SARS-CoV-2 Rapid ID NOW Not Detected Not Detected (test code = 80532-1) NISHA (test code = NISHA) ID NOW COVID-19 Assay is an isothermal nucleic acid amplification test intended for the qualitative detection of nucleic acid from SARS-CoV-2 viral RNA in nasopharyngeal (GLOBAL TECHNICAL WRITER) specimens. It is used under Emergency Use [...] indicated. Lab Interpretation Normal (test code = 21613-4) [facility] GLUCOSE(AGE >30DAYS)2020-10-07 19:39:00 Test Item Value Reference Range Interpretation Comments POCT Glu (age>30days) (test code = 189 mg/dL 70-110 A 3342) Lab Interpretation (test code = Abnormal 94805-2) [facility] GLUCOSE(AGE >30DAYS)2020-10-07 19:39:00 Test Item Value Reference Range Interpretation Comments POCT Glu (age>30days) (test code = 189 mg/dL 70-110 A 3342) Lab Interpretation (test code = Abnormal 88891-3) [facility] GLUCOSE (AUTOMATED)2020-09-07 22:31:04 Test Item Value Reference Range Interpretation Comments POCT GLU (test code = 8437853077) 72 mg/dL 70-110 Lab Interpretation (test code = Normal 21342-3) [facility] GLUCOSE (AUTOMATED)2020-09-07 21:54:57 Test Item Value Reference Range Interpretation Comments POCT GLU (test code = 2695445503) 88 mg/dL 70-110 Lab Interpretation (test code = Normal 90880-4) [facility]landsVITAMIN D, [id number] 21:07:23 Test Item Value Reference Range Interpretation Comments VIT D 25OH (test code = <13 25-80 L 63531-1) NISHA (test code = NISHA) Deficiency: <20 ng/mLInsufficiency: 20-24 ng/mLOptimal: 25-80 ng/mL Lab Interpretation (test Abnormal code = 96534-9) [facility] GLUCOSE (AUTOMATED)2020-09-07 20:17:01 Test Item Value Reference Range Interpretation Comments POCT GLU (test code = 9142347142) 47 mg/dL 70-110 LL Lab Interpretation (test code = Abnormal 78103-1) [facility] GLUCOSE (AUTOMATED)2020-09-07 17:19:43 Test Item Value Reference Range Interpretation Comments POCT GLU (test code = 7921258874) 46 mg/dL 70-110 LL Lab Interpretation (test code = Abnormal 58713-1) [facility] GLUCOSE (AUTOMATED)2020-09-07 17:19:42 Test Item Value Reference Range Interpretation Comments POCT GLU (test code = 4179631323) 183 mg/dL 70-110 H Lab Interpretation (test code = Abnormal 00742-3) [facility] WITH [id number] 11:16:01 Test Item Value Reference Range Interpretation [...] RDW-SD (test code = 42.8 fL 39.0-49.9 68041-0) RDW-CV (test code = 13.1 % 12.0-15.5 788-0) PLT (test code = See_Comment [Automated 777-3) message] The sy stem which generated this result transmitted reference range : 166 - 358 10*3/ ?L. The reference r chelsie was not used to interpret this result as normal/abnormal . MPV (test code = 11.4 fL 9.5-12.9 14723-0) IPF % (test code = 3.7 % 1.3-7.7 Platelet count 9917303513) measured by fluorescence method. NRBC/100 WBC (test See_Comment [Automat ed code = 5529395957) message] The system which generated this result transmitted reference range : 0.0 - 10.0 /100 WBCs. The refer ence range was not u sed to interpret th is result as normal/abnormal . NRBC x10^3 (test code <0.01 See_Comment [Auto mated = 9863181863) message] The s ystem which generated this result transmitted reference range : 10*3/?L. The reference range was not used to interpret this result as normal/abnormal . GRAN MAT (NEUT) % 82.6 % (test code = 770-8) IMM GRAN % (test code 0.50 % = 1446803672) LYMPH % (test code = 8.8 % 736-9) MONO % (test code = 6.3 % 5905-5) EOS % (test code = 1.6 % 713-8) BASO % (test code = 0.2 % 706-2) GRAN MAT x10^3(ANC) 11.20 10*3/uL 1.88-7.09 H (test code = 9682275565) IMM GRAN x10^3 (test 0.07 10*3/uL 0.00-0.06 H code = 3566108052) LYMPH x10^3 (test 1.19 10*3/uL 1.32-3.29 L code = 731-0) MONO x10^3 (test code 0.85 10*3/uL 0.33-0.92 = 742-7) EOS x10^3 (test code 0.22 10*3/uL 0.03-0.39 = 711-2) BASO x10^3 (test code 0.03 10*3/uL 0.01-0.07 = 704-7) Lab Interpretation Abnormal (test code = 43406-6) [facility])2020-09-07 11:07:40 Test Item Value Reference Range Interpretation Comments POCT GLU (test code = 2100840761) 215 mg/dL 70-110 H Lab Interpretation (test code = Abnormal 40929-0) [facility]. METABOLIC PANEL (41438)2020-09-07 10:56:53 Test Item Value Reference Range Interpretation Comments NA (test code = 137 mmol/L 135-145 5235978445) K (test code = 4.6 mmol/L 3.5-5.0 8144773678) CL (test code = 109 mmol/L 98-108 H 7130079028) CO2 TOTAL (test code = 22 mmol/L 23-31 L 9305646705) AGAP (test code = 2-16 3820607091) BUN (test code = 8 mg/dL 7-23 4165244574) GLUCOSE (test code = 177 mg/dL 70-110 H 8158927315) CREATININE (test code = 0.62 mg/dL 0.50-1.04 6618788357) TOTAL BILI (test code = 0.3 mg/dL 0.1-1.1 6366274619) CALCIUM (test code = 7.9 mg/dL 8.6-10.6 L 9114883634) T PROTEIN (test code = 5.1 g/dL 6.3-8.2 L 1143219997) ALBUMIN (test code = 2.7 g/dL 3.5-5.0 L 9424441002) ALK PHOS (test code = 73 U/L 34-122 2277468274) ALTv (test code = 14 U/L 5-35 1742-6) AST(SGOT) (test code = 23 U/L 13-40 7274767520) eGFR (test code = mL/min/1.73m2 1534347842) NISHA (test code = NISHA) Association of [...] tests). Lab Interpretation Abnormal (test code = 61439-5) [facility]landsCORTISOL STIMULATION 30 [id number] 06:01:46 Test Item Value Reference Range Interpretation Comments ISIDORO 30 (test code 17.8 ug/dL = 9038153184) NISHA (test code = Normal peak serum cortisol NISHA) is greater than 20 ug/dL 30-60 minutes after 25 units of Cosyntropin IV. Biotin has been reported to cause a positive bias, interpret results relative to patient's use of biotin. [facility] [id number] 05:52:48 Test Item Value Reference Range Interpretation Comments ISIDORO 0 (test code = 15.7 ug/dL 4.5-23.0 2138581236) NISHA (test code = NSIHA) Biotin has been reported to cause a positive bias, interpret results relative to patient's use of biotin. Lab Interpretation (test Normal code = 01910-9) [facility]landsCORTISOL STIMULATION 60 [id number] 05:51:28 Test Item Value Reference Range Interpretation Comments ISIDORO 60 (test code 16.6 ug/dL = 1947039275) NISHA (test code = Normal peak serum cortisol NISHA) is greater than 20 ug/dL 30-60 minutes after 25 units of Cosyntropin IV. Biotin has been reported to cause a positive bias, interpret results relative to patient's use of biotin. [facility] GLUCOSE (AUTOMATED)2020-09-06 21:06:52 Test Item Value Reference Range Interpretation Comments POCT GLU (test code = 8596218549) 73 mg/dL 70-110 Lab Interpretation (test code = Normal 22045-9) [facility] GLUCOSE (AUTOMATED)2020-09-06 20:00:38 Test Item Value Reference Range Interpretation Comments POCT GLU (test code = 8496579246) 38 mg/dL 70-110 LL Lab Interpretation (test code = Abnormal 98100-6) [facility]landsCORTISOL [id number] 18:39:49 Test Item Value Reference Range Interpretation Comments ISIDORO AM (test code = 1.6 ug/dL 4.5-23.0 L 3257222949) NISHA (test code = NISHA) Biotin has been reported to cause a positive bias, interpret results relative to patient's use of biotin. Lab Interpretation (test Abnormal code = 62774-6) [facility] GLUCOSE (AUTOMATED)2020-09-06 16:42:57 Test Item Value Reference Range Interpretation Comments POCT GLU (test code = 7172042461) 120 mg/dL 70-110 H Lab Interpretation (test code = Abnormal 79321-2) [facility] GLUCOSE (AUTOMATED)2020-09-06 12:48:51 Test Item Value Reference Range Interpretation Comments POCT GLU (test code = 0073342665) 217 mg/dL 70-110 H Lab Interpretation (test code = Abnormal 15294-7) [facility]landsN-TERMINAL ADO-[id number] 11:44:45 Test Item Value Reference Range Interpretation Comments NT-proBNP (test code 423 pg/mL See_Comment H [Autom ated = 3951652799) message] The system which generated this result transmitted reference range : <=125. The reference range was not used to interpret this result as normal/abnormal . NISHA (test code = NISHA) Biotin has been reported to cause a negative bias, interpret results relative to patient's use of biotin. Lab Interpretation Abnormal (test code = 67101-6) [facility]landsMAGNESIUM2021-04-11 11:36:41 Test Item Value Reference Range Interpretation Comments MAGNESIUM (test code = 2547687113) 1.7 mg/dL 1.7-2.4 Lab Interpretation (test code = Normal 83015-7) [facility]landsCOMP. METABOLIC PANEL (22075)2020-09-06 11:36:21 Test Item Value Reference Range Interpretation Comments NA (test code = 138 mmol/L 135-145 6116168136) K (test code = 4.1 mmol/L 3.5-5.0 7978543000) CL (test code = 110 mmol/L 98-108 H 7948829589) CO2 TOTAL (test code = 25 mmol/L 23-31 2084133079) AGAP (test code = 2-16 0265358865) BUN (test code = 9 mg/dL 7-23 9069533868) GLUCOSE (test code = 196 mg/dL 70-110 H 3304585733) CREATININE (test code = 0.78 mg/dL 0.50-1.04 2683751951) TOTAL BILI (test code = 0.4 mg/dL 0.1-1.0 5693636561) CALCIUM (test code = 7.9 mg/dL 8.6-10.6 L 0320459178) T PROTEIN (test code = 5.0 g/dL 6.3-8.2 L 1825896702) ALBUMIN (test code = 2.6 g/dL 3.5-5.0 L 9370537134) ALK PHOS (test code = 65 U/L 34-122 0571120692) ALTv (test code = 13 U/L 5-35 1742-6) AST(SGOT) (test code = 24 U/L 13-40 2365774076) eGFR (test code = mL/min/1.73m2 9217295850) NISHA (test code = NISHA) Association of [...] tests). Lab Interpretation Abnormal (test code = 11669-8) [facility]landsPHOSPHORUS2021-04-11 11:36:20 Test Item Value Reference Range Interpretation Comments PHOSPHORUS (test code = 6571367314) 4.3 mg/dL 2.5-5.0 Lab Interpretation (test code = Normal 24018-7) [facility] WITH [id number] 11:26:03 Test Item Value Reference Range Interpretation Comments WBC (test code = See_Comment [Automated 6461-2) message] The sy stem which generated this result transmitted reference range : 4.30 - 11.10 10*3/?L. The reference range was not used to interpret this result as normal/abnormal . RBC (test code = See_Comment L [Automated 285-9) message] The sy stem which generated this [...] RDW-SD (test code = 42.7 fL 39.0-49.9 40038-6) RDW-CV (test code = 13.2 % 12.0-15.5 788-0) PLT (test code = See_Comment [Automated 777-3) message] The sy stem which generated this result transmitted reference range : 166 - 358 10*3/ ?L. The reference r chelsie was not used to interpret this result as normal/abnormal . MPV (test code = 10.5 fL 9.5-12.9 33536-2) NRBC/100 WBC (test See_Comment [Automat ed code = 4215858351) message] The system which generated this result transmitted reference range : 0.0 - 10.0 /100 WBCs. The refer ence range was not u sed to interpret th is result as normal/abnormal . NRBC x10^3 (test code <0.01 See_Comment [Auto mated = 2751471793) message] The s ystem which generated this result transmitted reference range : 10*3/?L. The reference range was not used to interpret this result as normal/abnormal . GRAN MAT (NEUT) % 61.4 % (test code = 770-8) IMM GRAN % (test code 0.40 % = 6916605757) LYMPH % (test code = 26.8 % 736-9) MONO % (test code = 7.3 % 5905-5) EOS % (test code = 3.6 % 713-8) BASO % (test code = 0.5 % 706-2) GRAN MAT x10^3(ANC) 4.65 10*3/uL 1.88-7.09 (test code = 0913408229) IMM GRAN x10^3 (test 0.03 10*3/uL 0.00-0.06 code = 4229789957) LYMPH x10^3 (test code 2.03 10*3/uL 1.32-3.29 = 731-0) MONO x10^3 (test code 0.55 10*3/uL 0.33-0.92 = 742-7) EOS x10^3 (test code = 0.27 10*3/uL 0.03-0.39 711-2) BASO x10^3 (test code 0.04 10*3/uL 0.01-0.07 = 704-7) Lab Interpretation Abnormal (test code = 62794-3) [facility] ([facility]OM[facility])2020-09-06 09:31:41 Test Item Value Reference Range Interpretation Comments POCT GLU (test code = 6215609165) 119 mg/dL 70-110 H Lab Interpretation (test code = Abnormal 10753-1) [facility]landsSEDIMENTATION [id number] 02:23:15 Test Item Value Reference Range Interpretation Comments ESR (test code = See_Comment H [Automated message] 1985768744) The system [employer] generated this result transmitted ref erence range: 0 - 20 m m/HR. The reference r chelsie was not used to interpret this result as normal/abnor mal. Lab Interpretation (test Abnormal code = 44810-5) [facility]landsTROPONIN [id number] 01:26:18 Test Item Value Reference Range Interpretation Comments TROPONIN I (test 0.004 ng/mL See_Comment [Automated code = 4809126697) message] The system which generated this result [...] ? Lab Interpretation Normal (test code = 57610-4) [facility] GLUCOSE (AUTOMATED)2020-09-05 21:59:05 Test Item Value Reference Range Interpretation Comments POCT GLU (test code = 3415069057) 119 mg/dL 70-110 H Lab Interpretation (test code = Abnormal 31408-4) [facility] GLUCOSE (AUTOMATED)2020-09-05 20:48:26 Test Item Value Reference Range Interpretation Comments POCT GLU (test code = 0820329136) 237 mg/dL 70-110 H Lab Interpretation (test code = Abnormal 48811-3) [facility] GLUCOSE (AUTOMATED)2020-09-05 20:48:26 Test Item Value Reference Range Interpretation Comments POCT GLU (test code = 7121008775) 208 mg/dL 70-110 H Lab Interpretation (test code = Abnormal 13162-9) [facility]landsLIPID PANEL (00659)(TOTAL CHOLESTEROL, TRIGLYCERIDES, HDL)2020-09-05 20:09:59 Test Item Value Reference Range Interpretation Comments CHOL (test code = 175 mg/dL 120-200 6861846937) HDL (test code = 29 mg/dL >50 L 7902575153) HDLC RATIO (test code = See_Comment H [Au tomated message] 5007234222) The system [employer] generated this result transmit anthony reference range : <=4.5. The refe rence range was not u sed to interpret th is result as normal/abnormal . TRIG (test code = 359 mg/dL 30-170 H 8048926717) LDL CHOL (test code = 74 mg/dL See_Comment [Auto mated message] 72856-5) The system [employer] generated this result transmit anthony reference range : <=160. The refe rence range was not u sed to interpret th is result as normal/abnormal . VLDL (test code = 72 mg/dL 5-60 H 5618307495) Lab Interpretation (test Abnormal code = 29263-2) [facility]VIT[facility]IN B12, [id number] 19:54:18 Test Item Value Reference Range Interpretation Comments VIT B12 (test code = 589 pg/mL 240-930 2572366430) NISHA (test code = NISHA) Biotin has been reported to cause a positive bias, interpret results relative to patient's use of biotin. Lab Interpretation (test Normal code = 70383-6) [facility]landsPROCALCITONIN2021-04-10 16:28:13 Test Item Value Reference Range Interpretation Comments Procalcitonin (test 0.02 ng/mL <0.07 code = 4340593885) NISHA (test code = NISHA) INTERPRETATION OF [...] lung abscess/empyema. For further information please refer to:[email or web address] Lab Interpretation Normal (test code = 59650-0) [facility]landsGLYCOSYLATED HEMOGLOBIN (A1C)2020-09-05 14:17:09 Test Item Value Reference Range Interpretation Comments HGB A1C (test code = >14.0 4.0-6.0 H 4548-4) NISHA (test code = NISHA) %A1C (NGSP) Interpretation (ADA)4.8-5.6 ? ? Normal or (Non-Diabetic Range)5.7-6.4 ? ? Increased Risk (Pre-Diabetic)>6.5 ?Diabetes Indicated Lab Interpretation Abnormal (test code = 58113-5) [facility]landsTROPONIN [id number] 12:34:46 Test Item Value Reference Range Interpretation Comments TROPONIN I (test 0.006 ng/mL See_Comment [Automated code = 3242966006) message] The system which generated this result [...] ? Lab Interpretation Normal (test code = 28638-7) [facility]landsN-TERMINAL [id number] 12:31:45 Test Item Value Reference Range Interpretation Comments NT-proBNP (test code 465 pg/mL See_Comment H [Autom ated = 8211773655) message] The system which generated this result transmitted reference range : <=125. The reference range was not used to interpret this result as normal/abnormal . NISHA (test code = NISHA) Biotin has been reported to cause a negative bias, interpret results relative to patient's use of biotin. Lab Interpretation Abnormal (test code = 57682-1) [facility]landsMAGNESIUM2021-04-10 12:23:24 Test Item Value Reference Range Interpretation Comments MAGNESIUM (test code = 5930884952) 1.2 mg/dL 1.7-2.4 L Lab Interpretation (test code = Abnormal 18326-0) [facility]landsCOMP. METABOLIC PANEL (61442)2020-09-05 12:23:06 Test Item Value Reference Range Interpretation Comments NA (test code = 138 mmol/L 135-145 2722761261) K (test code = 3.0 mmol/L 3.5-5.0 L 8773660936) CL (test code = 102 mmol/L 98-108 6204869831) CO2 TOTAL (test code = 28 mmol/L 23-31 4668177562) AGAP (test code = 2-16 8213463154) BUN (test code = 11 mg/dL 7-23 4929633047) GLUCOSE (test code = 172 mg/dL 70-110 H 1036682674) CREATININE (test code = 0.60 mg/dL 0.50-1.04 6873410900) TOTAL BILI (test code = 0.5 mg/dL 0.1-1.0 8538110532) CALCIUM (test code = 8.0 mg/dL 8.6-10.6 L 2954532753) T PROTEIN (test code = 5.9 g/dL 6.3-8.2 L 9066309996) ALBUMIN (test code = 3.2 g/dL 3.5-5.0 L 7829302031) ALK PHOS (test code = 97 U/L 34-122 3576658885) ALTv (test code = 17 U/L 5-35 1742-6) AST(SGOT) (test code = 21 U/L 13-40 2955679924) eGFR (test code = mL/min/1.73m2 0851191781) NISHA (test code = NISHA) Association of [...] tests). Lab Interpretation Abnormal (test code = 67962-6) [facility]landsCREATINE [id number] 12:22:45 Test Item Value Reference Range Interpretation Comments CK (test code = 5609932760) 39 U/L 33-194 Lab Interpretation (test code = Normal 95325-9) [facility]landsPROTHROMBIN TIME / [id number] 11:59:05 Test Item Value Reference Range Interpretation Comments PROTIME PATIENT (test See_Comment [Auto mated message] code = 5964-2) The system [employer] generated this result transmitted ref erence range: 12.0 - 1 4.7 Seconds. The re ference range was not u sed to interpret this result as normal/abnor mal. INR (test code = 6301-6) Nor mal INR <1.1; Warfarin Therap eutic range 2.0 to 3. 0 or 2.5 to 3.5, dep ending upon the indica tions. Lab Interpretation (test Normal code = 29467-4) [facility]landsCT ABDOMEN PELVIS WO [id number] 11:36:381. 3-4 mm, bilateral nonobstructing renal stones [...] - 09/05/2020 6:37 AM CDTORDERING PHYSICIAN: ANASTASIA GIRALDOABDOMPAIGE AND PELVIS CTWITHOUT INTRAVENOUS CONTRAST.DATE: 09/05/2020 4:30 [...] are seen.2. Otherwise, no acute finding.RL: [id number] WITH [id number] 11:29:17 Test Item Value Reference Range Interpretation [...] (test code = 38.2 fL 39.0-49.9 L 49099-6) RDW-CV (test code = 12.4 % 12.0-15.5 788-0) PLT (test code = See_Comment [Automated 777-3) message] The sy stem which generated this result transmitted reference range : 166 - 358 10*3/ ?L. The reference r chelsie was not used to interpret this result as normal/abnormal . MPV (test code = 10.9 fL 9.5-12.9 52767-3) NRBC/100 WBC (test See_Comment [Automat ed code = 6425099008) message] The system which generated this result transmitted reference range : 0.0 - 10.0 /100 WBCs. The refer ence range was not u sed to interpret th is result as normal/abnormal . NRBC x10^3 (test code <0.01 See_Comment [Auto mated = 0049024932) message] The s ystem which generated this result transmitted reference range : 10*3/?L. The reference range was not used to interpret this result as normal/abnormal . GRAN MAT (NEUT) % 61.7 % (test code = 770-8) IMM GRAN % (test code 0.40 % = 2652914333) LYMPH % (test code = 26.7 % 736-9) MONO % (test code = 7.7 % 5905-5) EOS % (test code = 3.0 % 713-8) BASO % (test code = 0.5 % 706-2) GRAN MAT x10^3(ANC) 5.11 10*3/uL 1.88-7.09 (test code = 2481027610) IMM GRAN x10^3 (test 0.03 10*3/uL 0.00-0.06 code = 6366555334) LYMPH x10^3 (test code 2.21 10*3/uL 1.32-3.29 = 731-0) MONO x10^3 (test code 0.64 10*3/uL 0.33-0.92 = 742-7) EOS x10^3 (test code = 0.25 10*3/uL 0.03-0.39 711-2) BASO x10^3 (test code 0.04 10*3/uL 0.01-0.07 = 704-7) Lab Interpretation Abnormal (test code = 71724-1) [facility]landsTHYROID STIMULATING [id number] 10:36:10 Test Item Value Reference Range Interpretation Comments TSH (test code = See_Comment [Automated message] 5485072548) The system [employer] generated this result transmitted ref erence range: 0.45 - 4 .70 mIU/L. The refe rence range was not u sed to interpret this result as normal/abnor mal. Lab Interpretation (test Normal code = 04215-2) [facility]landsMAGNESIUM2021-04-10 10:04:49 Test Item Value Reference Range Interpretation Comments MAGNESIUM (test code = 8244278211) 1.3 mg/dL 1.7-2.4 L Lab Interpretation (test code = Abnormal 05759-0) [facility]landsPHOSPHORUS2021-04-10 10:04:49 Test Item Value Reference Range Interpretation Comments PHOSPHORUS (test code = 3158690542) 3.7 mg/dL 2.5-5.0 Lab Interpretation (test code = Normal 71678-3) [facility]landsCOVID-19 (ID NOW RAPID TESTING)2020-09-05 06:06:14 Test Item Value Reference Range Interpretation Comments SARS-CoV-2 Rapid ID NOW Not Detected Not Detected (test code = 81150-6) NISHA (test code = NISHA) ID NOW COVID-19 Assay is an isothermal nucleic acid amplification test intended for the qualitative detection of nucleic acid from SARS-CoV-2 viral RNA in nasopharyngeal (GLOBAL TECHNICAL WRITER) specimens. It is used under Emergency Use [...] indicated. Lab Interpretation Normal (test code = 22572-4) [facility]landsPOCT GLUCOSE (AUTOMATED)2020-09-05 04:27:52 Test Item Value Reference Range Interpretation Comments POCT GLU (test code = 9706397291) 463 mg/dL 70-110 HH Lab Interpretation (test code = Abnormal 94816-5) [facility]landsTROPONIN [id number] 03:44:02 Test Item Value Reference Range Interpretation Comments TROPONIN I (test 0.004 ng/mL See_Comment [Automated code = 5037137001) message] The system which generated this result [...] ? Lab Interpretation Normal (test code = 85194-4) [facility]landsN-TERMINAL [id number] 03:40:44 Test Item Value Reference Range Interpretation Comments NT-proBNP (test code 351 pg/mL See_Comment H [Autom ated = 1108014061) message] The system which generated this result transmitted reference range : <=125. The reference range was not used to interpret this result as normal/abnormal . NISHA (test code = NISHA) Biotin has been reported to cause a negative bias, interpret results relative to patient's use of biotin. Lab Interpretation Abnormal (test code = 32032-0) [facility]landsURINALYSIS2021-04-10 03:36:15 Test Item Value Reference Range Interpretation Comments APPEARANCE (test code = Hazy Clear A 6459321450) COLOR (test code = Yellow Yellow 1659316109) PH (test code = 4.8-8.0 2318455057) SP GRAVITY (test code = 1.003-1.030 6666023398) GLU U QUAL (test code = 500 mg/dL Normal A 7636143745) BLOOD (test code = Negative Negative 7209102537) KETONES (test code = Negative Negative 9742482372) PROTEIN (test code = Negative Negative 2887-8) UROBILIN (test code = Normal Normal 5783211346) BILIRUBIN (test code = Negative Negative 2292120473) NITRITE (test code = Positive Negative A 3125256050) LEUK JOSEFA (test code = 75/uL Negative A 4665280749) RBC/HPF (test code = See_Comment [Autom ated message] 3175863343) The system [employer] generated this result transmit anthony reference range : 0 - 3 HPF. The refe rence range was not u sed to interpret th is result as normal/abnormal . WBC/HPF (test code = See_Comment H [Autom ated message] 6416397762) The system [employer] generated this result transmit anthony reference range : 0 - 5 HPF. The refe rence range was not u sed to interpret th is result as normal/abnormal . BACTERIA (test code = Many Negative A 3224672444) MUCOUS (test code = Slight Negative LPF A 8872819687) SQ EPITH (test code = HPF 1330614411) YEAST BUD (test code = See_Comment H [Aut omated message] 8392576349) The system [employer] generated this result transmit anthony reference range : <=1 HPF. The refere nce range was not u sed to interpret th is result as normal/abnormal . Lab Interpretation (test Abnormal code = 84426-3) [facility]landsLIPASE2021-04-10 03:31:20 Test Item Value Reference Range Interpretation Comments LIPASE (test code = 6770987584) 121 U/L 0-220 Lab Interpretation (test code = Normal 19285-5) [facility]landsCOMP. METABOLIC PANEL (75393)2020-09-05 03:14:37 Test Item Value Reference Range Interpretation Comments NA (test code = 130 mmol/L 135-145 L 0995272605) K (test code = 3.3 mmol/L 3.5-5.0 L 6099493281) CL (test code = 90 mmol/L 98-108 L 3479113862) CO2 TOTAL (test code = 29 mmol/L 23-31 4554499575) AGAP (test code = 2-16 0947029988) BUN (test code = 13 mg/dL 7-23 6821855459) GLUCOSE (test code = 605 mg/dL 70-110 HH 4747054943) CREATININE (test code = 0.68 mg/dL 0.50-1.04 4326035895) TOTAL BILI (test code = 0.7 mg/dL 0.1-1.5 1487757583) CALCIUM (test code = 8.6 mg/dL 8.6-10.6 4420925293) T PROTEIN (test code = 7.3 g/dL 6.3-8.2 9885860715) ALBUMIN (test code = 4.3 g/dL 3.5-5.0 9503832182) ALK PHOS (test code = 138 U/L 34-122 H 7553546942) ALTv (test code = 23 U/L 5-35 1742-6) AST(SGOT) (test code = 24 U/L 13-40 3285750314) eGFR (test code = mL/min/1.73m2 1736384240) NISHA (test code = NISHA) Association of [...] tests). Lab Interpretation Abnormal (test code = 67838-7) [facility] WITH [id number] 03:03:56 Test Item Value Reference Range Interpretation Comments WBC (test code = See_Comment [Automated 8911-2) message] The sy stem which generated this result transmitted reference range : 4.30 - 11.10 10*3/?L. The reference range was not used to interpret this result as normal/abnormal . RBC (test code = See_Comment [Automated 669-8) message] The sy stem which generated this [...] RDW-SD (test code = 40.1 fL 39.0-49.9 86020-6) RDW-CV (test code = 12.7 % 12.0-15.5 788-0) PLT (test code = See_Comment H [Automated 777-3) message] The sy stem which generated this result transmitted reference range : 166 - 358 10*3/ ?L. The reference r chelsie was not used to interpret this result as normal/abnormal . MPV (test code = 11.0 fL 9.5-12.9 76398-9) NRBC/100 WBC (test See_Comment [Automat ed code = 1914002280) message] The system which generated this result transmitted reference range : 0.0 - 10.0 /100 WBCs. The refer ence range was not u sed to interpret th is result as normal/abnormal . NRBC x10^3 (test code <0.01 See_Comment [Auto mated = 6165500183) message] The s ystem which generated this result transmitted reference range : 10*3/?L. The reference range was not used to interpret this result as normal/abnormal . GRAN MAT (NEUT) % 66.6 % (test code = 770-8) IMM GRAN % (test code 0.40 % = 3193364493) LYMPH % (test code = 23.7 % 736-9) MONO % (test code = 6.1 % 5905-5) EOS % (test code = 2.7 % 713-8) BASO % (test code = 0.5 % 706-2) GRAN MAT x10^3(ANC) 5.00 10*3/uL 1.88-7.09 (test code = 1448832443) IMM GRAN x10^3 (test 0.03 10*3/uL 0.00-0.06 code = 6659195520) LYMPH x10^3 (test code 1.78 10*3/uL 1.32-3.29 = 731-0) MONO x10^3 (test code 0.46 10*3/uL 0.33-0.92 = 742-7) EOS x10^3 (test code = 0.20 10*3/uL 0.03-0.39 711-2) BASO x10^3 (test code 0.04 10*3/uL 0.01-0.07 = 704-7) Lab Interpretation Abnormal (test code = 59711-2) [facility] VENOUS BLOOD [id number] 02:38:19 Test Item Value Reference Range Interpretation Comments PH (test code = 7.32-7.42 9896141116) PCO2 JUSTIN (test code = See_Comment [Auto mated message] 0633550295) The system [employer] generated this result transmitted ref erence range: 41 - 51 mmHg. The reference r chelsie was not used to interpret this result as normal/abnor mal. PO2 JUSTIN (test code = See_Comment [Autom ated message] 5515064504) The system [employer] generated this result transmitted ref erence range: 25 - 40 mmHg. The reference r chelsie was not used to interpret this result as normal/abnor mal. HCO3 JUSTIN (test code = See_Comment H [Auto mated message] 4506005994) The system [employer] generated this result transmitted ref erence range: 24 - 28 mEq/L. The reference r chelsie was not used to interpret this result as normal/abnor mal. AC VBE(BEAKER) (test mEq/L code = 4284832687) Lab Interpretation (test Abnormal code = 57728-5) [facility] GLUCOSE (AUTOMATED)2020-09-05 01:59:51 Test Item Value Reference Range Interpretation Comments POCT GLU (test code = 7213939661) 557 mg/dL 70-110 HH Lab Interpretation (test code = Abnormal 04688-0) [facility] HEMOGLOBIN A1C [id number] 21:16:00 Test Item Value Reference Range Interpretation Comments POCT HBA1C (test code = 4548-4) >14 4-6 A Lab Interpretation (test code = Abnormal 58734-7) [facility] HEMOGLOBIN A1C [id number] 21:16:00 Test Item Value Reference Range Interpretation Comments POCT HBA1C (test code = 4548-4) >14 4-6 A Lab Interpretation (test code = Abnormal 39018-9) [facility]XR LUMBAR SPINE 4 [id number] 22:59:21XR LUMBAR SPINE 4 VW HISTORY: Female [...] the left kidney probablyrepresents a small renal calculus.[facility]XR HIPS 2 VW [id number] 22:34:44 Impression: 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 RL: ?[phone] Clinical indication: Severe acute on chronic hip [...] hip joint space withoutevidence of fracture visualized.RL: [id number] [facility]woodGC & CHLAMYDIA AMPLIFIED [id number] 20:07:00 Test Item Value Reference Range Interpretation Comments C. trachomatis Nucleic Negative Negative Acid (test code = 42316-3) N. gonorrhoeae Nucleic Negative Negative Acid (test code = 97784-0) NISHA (test code = NISHA) Reliable results [...] clinician. Lab Interpretation Normal (test code = 21718-4) [facility]landsTRICHOMONAS AMPLIFIED [id number] 20:02:00 Test Item Value Reference Range Interpretation Comments Trichomonas Nucleic Negative Negative Acid (test code = 71583-1) NISHA (test code = NISHA) Reliable results [...] clinician. Lab Interpretation Normal (test code = 40342-1) [facility]landsGALV ONLY - VAGINAL PATHOGENS BY NUCLEIC ACID [id number] 18:40:00 Test Item Value Reference Range Interpretation Comments Trichomonas vaginalis Negative Negative (test code = 0150190684) Nasrin species (test Positive Negative A code = 8415495369) Nasrin glabrata (test Positive Negative A code = 38254-5) Bacterial Vaginosis Positive Negative A (test code = 06335-9) NISHA (test code = NISHA) Reliable results [...] clinician. Lab Interpretation Abnormal (test code = 61459-4) [facility] URINALYSIS W/O SPECIFIC [id number] 19:50:00 Test Item Value Reference Range Interpretation [...] code = 3257) neg Negative - Negative [facility] URINALYSIS W/O SPECIFIC [id number] 19:50:00 Test Item Value Reference Range Interpretation [...] code = 3257) neg Negative - Negative [facility] URINALYSIS W/O SPECIFIC [id number] 19:50:00 Test Item Value Reference Range Interpretation [...] code = 3257) neg Negative - Negative [facility] HEMOGLOBIN A1C [id number] 22:01:00 Test Item Value Reference Range Interpretation Comments POCT HBA1C (test code = 4548-4) >14.0 4-6 [facility] HEMOGLOBIN A1C [id number] 22:01:00 Test Item Value Reference Range Interpretation Comments POCT HBA1C (test code = 4548-4) >14.0 4-6 [facility]landsBI SCREENING MAMMOGRAM [id number] 22:41:31Examination:BI SCREENING MAMMOGRAM BILATERAL History:Patient is 49 [...] the study and agree with the resident's/fellow's report.[facility]POCT GLUCOSE (AUTOMATED)2019-08-16 13:03:00 Test Item Value Reference Range Interpretation Comments POCT GLU (test code = 0026342169) 228 mg/dL 70-110 H Lab Interpretation (test code = Abnormal 62911-0) [facility]landsMAGNESIUM2020-03-20 10:40:00 Test Item Value Reference Range Interpretation Comments MAGNESIUM (test code = 8267393102) 4.7 mg/dL 1.7-2.4 H Lab Interpretation (test code = Abnormal 11634-6) [facility]landsBASIC METABOLIC PANEL (NA, K, CL, CO2, GLUCOSE, BUN, CREATININE, CA)2019-08-16 10:36:00 Test Item Value Reference Range Interpretation Comments NA (test code = 135 mmol/L 135-145 5274666117) K (test code = 3.9 mmol/L 3.5-5 3287609766) CL (test code = 107 mmol/L 98-108 2164614301) CO2 TOTAL (test code = 22 mmol/L 23-31 L 0470291412) AGAP (test code = 2-16 1921397824) BUN (test code = 19 mg/dL 7-23 7685701971) GLUCOSE (test code = 236 mg/dL 70-110 H 6321794196) CREATININE (test code = 0.91 mg/dL 0.5-1.04 2090629670) CALCIUM (test code = 6.6 mg/dL 8.6-10.6 L 4430770498) eGFR Calculation mL/min/1.73m2 (Non-) (test code = 9996963730) eGFR Calculation mL/min/1.73m2 () (test code = 7148291739) NISHA (test code = NISHA) Association of [...] tests). Lab Interpretation Abnormal (test code = 91998-4) [facility] WITH [id number] 10:13:00 Test Item Value Reference Range Interpretation Comments WBC (test code = See_Comment H [Automated 0790-2) message] The sy stem which generated this result transmitted reference range : 4.30 - 11.10 10*3/?L. The reference range was not used to interpret this result as normal/abnormal . RBC (test code = See_Comment L [Automated 169-8) message] The sy stem which generated this [...] RDW-SD (test code = 41.6 fL 39-49.9 89836-7) RDW-CV (test code = 12.8 % 12-15.5 788-0) PLT (test code = See_Comment [Automated 777-3) message] The sy stem which generated this result transmitted reference range : 166 - 358 10*3/ ?L. The reference r chelsie was not used to interpret this result as normal/abnormal . MPV (test code = 10.6 fL 9.5-12.9 61641-3) NRBC/100 WBC (test See_Comment [Automat ed code = 8338525004) message] The system which generated this result transmitted reference range : 0.0 - 10.0 /100 WBCs. The refer ence range was not u sed to interpret th is result as normal/abnormal . NRBC x10^3 (test code <0.01 See_Comment [Auto mated = 7399354305) message] The s ystem which generated this result transmitted reference range : 10*3/?L. The reference range was not used to interpret this result as normal/abnormal . GRAN MAT (NEUT) % 77.9 % (test code = 770-8) IMM GRAN % (test code 0.80 % = 8539495387) LYMPH % (test code = 13.8 % 736-9) MONO % (test code = 6.8 % 5905-5) EOS % (test code = 0.3 % 713-8) BASO % (test code = 0.4 % 706-2) GRAN MAT x10^3(ANC) 8.66 10*3/uL 1.88-7.09 H (test code = 3572776424) IMM GRAN x10^3 (test 0.09 10*3/uL 0-0.06 H code = 1308092203) LYMPH x10^3 (test code 1.54 10*3/uL 1.32-3.29 = 731-0) MONO x10^3 (test code 0.76 10*3/uL 0.33-0.92 = 742-7) EOS x10^3 (test code = 0.03 10*3/uL 0.03-0.39 711-2) BASO x10^3 (test code 0.04 10*3/uL 0.01-0.07 = 704-7) Lab Interpretation Abnormal (test code = 43575-1) [facility] GLUCOSE (AUTOMATED)2019-08-16 09:54:00 Test Item Value Reference Range Interpretation Comments POCT GLU (test code = 9850958115) 218 mg/dL 70-110 H Lab Interpretation (test code = Abnormal 17758-1) [facility] GLUCOSE (AUTOMATED)2019-08-16 07:12:00 Test Item Value Reference Range Interpretation Comments POCT GLU (test code = 8221597633) 355 mg/dL 70-110 H Lab Interpretation (test code = Abnormal 38696-2) [facility] GLUCOSE (AUTOMATED)2019-08-16 05:06:00 Test Item Value Reference Range Interpretation Comments POCT GLU (test code = 1192284038) 457 mg/dL 70-110 HH Lab Interpretation (test code = Abnormal 52055-0) [facility] HEAD WO [id number] 00:55:12 No acute intracranial hemorrhage or mass [...] clear. IMPRESSIONNo acute intracranial hemorrhage or mass effect.[facility] GLUCOSE (AUTOMATED)2019-08-15 22:15:00 Test Item Value Reference Range Interpretation Comments POCT GLU (test code = 7137799168) 304 mg/dL 70-110 H Lab Interpretation (test code = Abnormal 61505-9) [facility]landsaPTT2020-03-19 21:04:00 Test Item Value Reference Range Interpretation Comments APTT Patient (test code See_Comment L [Au tomated message] = 3173-2) The system [employer] generated this result transmitted ref erence range: 26 - 36 Seconds. The reference range was not used to int erpret this result as normal/abnormal . Lab Interpretation (test Abnormal code = 78041-2) [facility] GLUCOSE (AUTOMATED)2019-08-15 20:41:00 Test Item Value Reference Range Interpretation Comments POCT GLU (test code = 2787729116) 274 mg/dL 70-110 H Lab Interpretation (test code = Abnormal 46181-6) [facility] GLUCOSE (AUTOMATED)2019-08-15 17:10:00 Test Item Value Reference Range Interpretation Comments POCT GLU (test code = 9283056792) 308 mg/dL 70-110 H Lab Interpretation (test code = Abnormal 24425-0) [facility] ACT LOW [id number] 15:44:00 Test Item Value Reference Range Interpretation Comments ACTLR (test code = See_Comment H [Automat ed message] 7968641914) The system [employer] generated this result transmitted ref erence range: 89 - 169 Seconds. The reference range was not used to int erpret this result as normal/abnormal . Lab Interpretation (test Abnormal code = 55267-1) [facility] ACT LOW [id number] 15:22:00 Test Item Value Reference Range Interpretation Comments ACTLR (test code = See_Comment H [Automat ed message] 8720537177) The system [employer] generated this result transmitted ref erence range: 89 - 169 Seconds. The reference range was not used to int erpret this result as normal/abnormal . Lab Interpretation (test Abnormal code = 04627-9) [facility] ACT LOW [id number] 14:44:00 Test Item Value Reference Range Interpretation Comments ACTLR (test code = See_Comment H [Automat ed message] 7834115748) The system [employer] generated this result transmitted ref erence range: 89 - 169 Seconds. The reference range was not used to int erpret this result as normal/abnormal . Lab Interpretation (test Abnormal code = 20304-6) [facility] ACT LOW [id number] 14:26:00 Test Item Value Reference Range Interpretation Comments ACTLR (test code = See_Comment H [Automat ed message] 2346875091) The system [employer] generated this result transmitted ref erence range: 89 - 169 Seconds. The reference range was not used to int erpret this result as normal/abnormal . Lab Interpretation (test Abnormal code = 28758-4) [facility] METABOLIC PANEL (NA, K, CL, CO2, GLUCOSE, BUN, CREATININE, CA)2019-08-15 11:06:00 Test Item Value Reference Range Interpretation Comments NA (test code = 134 mmol/L 135-145 L 3039966967) K (test code = 4.3 mmol/L 3.5-5 4720737762) CL (test code = 105 mmol/L 98-108 2656244357) CO2 TOTAL (test code = 22 mmol/L 23-31 L 6186899526) AGAP (test code = 2-16 6720669524) BUN (test code = 21 mg/dL 7-23 6796673363) GLUCOSE (test code = 410 mg/dL 70-110 H 6512446725) CREATININE (test code = 0.92 mg/dL 0.5-1.04 0545320519) CALCIUM (test code = 7.5 mg/dL 8.6-10.6 L 0966263944) eGFR Calculation mL/min/1.73m2 (Non-) (test code = 3613301906) eGFR Calculation mL/min/1.73m2 () (test code = 9124617589) NISHA (test code = NISHA) Association of [...] tests). Lab Interpretation Abnormal (test code = 48267-3) [facility] 11:06:00 Test Item Value Reference Range Interpretation Comments MAGNESIUM (test code = 5182033168) 1.6 mg/dL 1.7-2.4 L Lab Interpretation (test code = Abnormal 75258-4) [facility] (for use with Heparin Practice Guideline). Note: Draw and Send all Lab STAT.2019-08-15 10:47:00 Test Item Value Reference Range Interpretation Comments APTT Patient (test code See_Comment H [Au tomated message] = 3173-2) The system [employer] generated this result transmitted ref erence range: 26 - 36 Seconds. The reference range was not used to int erpret this result as normal/abnormal . Lab Interpretation (test Abnormal code = 57327-5) [facility] WITH [id number] 10:46:00 Test Item Value Reference Range Interpretation [...] RDW-SD (test code = 39.1 fL 39-49.9 60258-9) RDW-CV (test code = 12.4 % 12-15.5 788-0) PLT (test code = See_Comment [Automated 777-3) message] The sy stem which generated this result transmitted reference range : 166 - 358 10*3/ ?L. The reference r chelsie was not used to interpret this result as normal/abnormal . MPV (test code = 10.9 fL 9.5-12.9 55479-7) NRBC/100 WBC (test See_Comment [Automat ed code = 5122811340) message] The system which generated this result transmitted reference range : 0.0 - 10.0 /100 WBCs. The refer ence range was not u sed to interpret th is result as normal/abnormal . NRBC x10^3 (test code <0.01 See_Comment [Auto mated = 3664982401) message] The s ystem which generated this result transmitted reference range : 10*3/?L. The reference range was not used to interpret this result as normal/abnormal . GRAN MAT (NEUT) % 80.6 % (test code = 770-8) IMM GRAN % (test code 0.50 % = 8901566574) LYMPH % (test code = 12.5 % 736-9) MONO % (test code = 5.8 % 5905-5) EOS % (test code = 0.4 % 713-8) BASO % (test code = 0.2 % 706-2) GRAN MAT x10^3(ANC) 8.94 10*3/uL 1.88-7.09 H (test code = 4829966198) IMM GRAN x10^3 (test 0.06 10*3/uL 0-0.06 code = 6831971493) LYMPH x10^3 (test code 1.39 10*3/uL 1.32-3.29 = 731-0) MONO x10^3 (test code 0.64 10*3/uL 0.33-0.92 = 742-7) EOS x10^3 (test code = 0.04 10*3/uL 0.03-0.39 711-2) BASO x10^3 (test code <0.03 0.01-0.07 = 704-7) Lab Interpretation Abnormal (test code = 68517-9) [facility] GLUCOSE (AUTOMATED)2019-08-15 09:48:00 Test Item Value Reference Range Interpretation Comments POCT GLU (test code = 0548313089) 319 mg/dL 70-110 H Lab Interpretation (test code = Abnormal 94022-3) [facility] GLUCOSE (AUTOMATED)2019-08-15 06:35:00 Test Item Value Reference Range Interpretation Comments POCT GLU (test code = 2299359102) 479 mg/dL 70-110 HH Lab Interpretation (test code = Abnormal 21101-9) [facility] GLUCOSE (AUTOMATED)2019-08-15 03:10:00 Test Item Value Reference Range Interpretation Comments POCT GLU (test code = 2983743725) 450 mg/dL 70-110 HH Lab Interpretation (test code = Abnormal 18128-6) [facility] (for use with Heparin Practice Guideline). Note: Draw and Send all Lab STAT.2019-08-15 02:31:00 Test Item Value Reference Range Interpretation Comments APTT Patient (test code See_Comment HH [Au tomated message] = 3173-2) The system [employer] generated this result transmitted ref erence range: 26 - 36 Seconds. The reference range was not used to int erpret this result as normal/abnormal . Lab Interpretation (test Abnormal code = 76134-9) [facility] METABOLIC PANEL (NA, K, CL, CO2, GLUCOSE, BUN, CREATININE, CA)2019-08-15 02:30:00 Test Item Value Reference Range Interpretation Comments NA (test code = 131 mmol/L 135-145 L 3098273683) K (test code = 4.6 mmol/L 3.5-5 3553320899) CL (test code = 102 mmol/L 98-108 8594908208) CO2 TOTAL (test code = 21 mmol/L 23-31 L 6755886050) AGAP (test code = 2-16 3748405206) BUN (test code = 21 mg/dL 7-23 7210549895) GLUCOSE (test code = 479 mg/dL 70-110 HH 8576469750) CREATININE (test code = 1.08 mg/dL 0.5-1.04 H 1528055305) CALCIUM (test code = 7.3 mg/dL 8.6-10.6 L 3326829971) eGFR Calculation mL/min/1.73m2 (Non-) (test code = 7499563024) eGFR Calculation mL/min/1.73m2 () (test code = 4401999339) NISHA (test code = NISHA) Association of [...] tests). Lab Interpretation Abnormal (test code = 74891-7) [facility] GLUCOSE (AUTOMATED)2019-08-15 01:59:00 Test Item Value Reference Range Interpretation Comments POCT GLU (test code = 6092465188) 471 mg/dL 70-110 HH Lab Interpretation (test code = Abnormal 13130-7) [facility] GLUCOSE (AUTOMATED)2019-08-14 22:49:00 Test Item Value Reference Range Interpretation Comments POCT GLU (test code = 1448869429) 399 mg/dL 70-110 H Lab Interpretation (test code = Abnormal 02778-7) [facility] GLUCOSE (AUTOMATED)2019-08-14 20:45:00 Test Item Value Reference Range Interpretation Comments POCT GLU (test code = 2787354881) 473 mg/dL 70-110 HH Lab Interpretation (test code = Abnormal 65969-9) [facility] (for use with Heparin Practice Guideline). Note: Draw and Send all Lab STAT.2019-08-14 19:52:00 Test Item Value Reference Range Interpretation Comments APTT Patient (test code = See_Comment [ Automated message] 3173-2) The system [employer] generated this result transmitted ref erence range: 26 - 36 Seconds. The re ference range was not u sed to interpret this result as normal/abnor mal. Lab Interpretation (test Normal code = 89934-8) [facility] GLUCOSE (AUTOMATED)2019-08-14 17:24:00 Test Item Value Reference Range Interpretation Comments POCT GLU (test code = 421 mg/dL 70-110 H Notifi ed Provider 3737517512) Lab Interpretation (test Abnormal code = 55476-2) [facility] - INFLUENZA A B RSV [id number] 16:21:00 Test Item Value Reference Range Interpretation Comments Influenza A virus by PCR (test code Negative Negative = 66003-0) Influenza B virus by PCR (test code Negative Negative = 34200-0) RSV by PCR (test code = 77866-4) Negative Negative Lab Interpretation (test code = Normal 84365-7) [facility] GLUCOSE (AUTOMATED)2019-08-14 14:00:00 Test Item Value Reference Range Interpretation Comments POCT GLU (test code = 7277145526) 314 mg/dL 70-110 H Lab Interpretation (test code = Abnormal 62109-2) [facility] (NA, K, CL, CO2, GLUCOSE, BUN, CREATININE, CA)2019-08-14 11:02:00 Test Item Value Reference Range Interpretation Comments NA (test code = 135 mmol/L 135-145 5331046964) K (test code = 4.4 mmol/L 3.5-5 2748125883) CL (test code = 106 mmol/L 98-108 7433798380) CO2 TOTAL (test code = 23 mmol/L 23-31 8700528628) AGAP (test code = 2-16 4523098835) BUN (test code = 15 mg/dL 7-23 6923616174) GLUCOSE (test code = 273 mg/dL 70-110 H 9208151559) CREATININE (test code = 1.04 mg/dL 0.5-1.04 3283380976) CALCIUM (test code = 7.5 mg/dL 8.6-10.6 L 6540042758) eGFR Calculation mL/min/1.73m2 (Non-) (test code = 0479578596) eGFR Calculation mL/min/1.73m2 () (test code = 3743413567) NISHA (test code = NISHA) Association of [...] tests). Lab Interpretation Abnormal (test code = 20742-4) [facility]2020-03-18 11:02:00 Test Item Value Reference Range Interpretation Comments MAGNESIUM (test code = 1301001471) 1.6 mg/dL 1.7-2.4 L Lab Interpretation (test code = Abnormal 93364-6) [facility] (for use with Heparin Practice Guideline). Note: Draw and Send all Lab STAT.2019-08-14 10:34:00 Test Item Value Reference Range Interpretation Comments APTT Patient (test code = See_Comment [ Automated message] 9013-2) The system [employer] generated this result transmitted ref erence range: 26 - 36 Seconds. The re ference range was not u sed to interpret this result as normal/abnor mal. Lab Interpretation (test Normal code = 85649-5) [facility] WITH [id number] 10:28:00 Test Item Value Reference Range Interpretation Comments WBC (test code = See_Comment [Automated 6590-2) message] The sy stem which generated this [...] RDW-SD (test code = 41.0 fL 39-49.9 07244-3) RDW-CV (test code = 12.6 % 12-15.5 788-0) PLT (test code = See_Comment [Automated 777-3) message] The sy stem which generated this result transmitted reference range : 166 - 358 10*3/ ?L. The reference r chelsie was not used to interpret this result as normal/abnormal . MPV (test code = 10.3 fL 9.5-12.9 56050-1) NRBC/100 WBC (test See_Comment [Automat ed code = 3119448889) message] The system which generated this result transmitted reference range : 0.0 - 10.0 /100 WBCs. The refer ence range was not u sed to interpret th is result as normal/abnormal . NRBC x10^3 (test code <0.01 See_Comment [Auto mated = 1453256981) message] The s ystem which generated this result transmitted reference range : 10*3/?L. The reference range was not used to interpret this result as normal/abnormal . GRAN MAT (NEUT) % 63.5 % (test code = 770-8) IMM GRAN % (test code 0.30 % = 8564386768) LYMPH % (test code = 19.9 % 736-9) MONO % (test code = 6.3 % 5905-5) EOS % (test code = 9.7 % 713-8) BASO % (test code = 0.3 % 706-2) GRAN MAT x10^3(ANC) 6.48 10*3/uL 1.88-7.09 (test code = 9133091607) IMM GRAN x10^3 (test 0.03 10*3/uL 0-0.06 code = 4051781728) LYMPH x10^3 (test code 2.03 10*3/uL 1.32-3.29 = 731-0) MONO x10^3 (test code 0.64 10*3/uL 0.33-0.92 = 742-7) EOS x10^3 (test code = 0.99 10*3/uL 0.03-0.39 H 711-2) BASO x10^3 (test code 0.03 10*3/uL 0.01-0.07 = 704-7) Lab Interpretation Abnormal (test code = 81293-3) [facility] GLUCOSE (AUTOMATED)2019-08-14 01:29:00 Test Item Value Reference Range Interpretation Comments POCT GLU (test code = 4452907312) 236 mg/dL 70-110 H Lab Interpretation (test code = Abnormal 26795-3) [facility] (for use with Heparin Practice Guideline). Note: Draw and Send all Lab STAT.2019-08-13 23:18:00 Test Item Value Reference Range Interpretation Comments APTT Patient (test code = See_Comment [ Automated message] 3173-2) The system [employer] generated this result transmitted ref erence range: 26 - 36 Seconds. The re ference range was not u sed to interpret this result as normal/abnor mal. Lab Interpretation (test Normal code = 03238-3) [facility] GLUCOSE (AUTOMATED)2019-08-13 23:09:00 Test Item Value Reference Range Interpretation Comments POCT GLU (test code = 7203895487) 305 mg/dL 70-110 H Lab Interpretation (test code = Abnormal 03289-0) [facility] GLUCOSE (AUTOMATED)2019-08-13 19:29:00 Test Item Value Reference Range Interpretation Comments POCT GLU (test code = 0386324120) 310 mg/dL 70-110 H Lab Interpretation (test code = Abnormal 64578-0) [facility]lands[facility] [id number] 14:04:00 Test Item Value Reference Range Interpretation Comments TROPONIN I (test 0.012 ng/mL See_Comment [Automated code = 0619983006) message] The system which generated this result [...] ? Lab Interpretation Normal (test code = 97532-7) [facility] GLU[facility]SE (AUTOMATED)2019-08-13 13:16:00 Test Item Value Reference Range Interpretation Comments POCT GLU (test code = 6275848871) 281 mg/dL 70-110 H Lab Interpretation (test code = Abnormal 58919-9) [facility] WITH [id number] 12:20:00 Test Item Value Reference Range Interpretation Comments WBC (test code = See_Comment H [Automated 5590-2) message] The sy stem which generated this [...] RDW-SD (test code = 40.6 fL 39-49.9 75832-9) RDW-CV (test code = 12.7 % 12-15.5 788-0) PLT (test code = See_Comment [Automated 777-3) message] The sy stem which generated this result transmitted reference range : 166 - 358 10*3/ ?L. The reference r chelsie was not used to interpret this result as normal/abnormal . MPV (test code = 10.7 fL 9.5-12.9 91281-0) NRBC/100 WBC (test See_Comment [Automat ed code = 6790930414) message] The system which generated this result transmitted reference range : 0.0 - 10.0 /100 WBCs. The refer ence range was not u sed to interpret th is result as normal/abnormal . NRBC x10^3 (test code <0.01 See_Comment [Auto mated = 4270640498) message] The s ystem which generated this result transmitted reference range : 10*3/?L. The reference range was not used to interpret this result as normal/abnormal . GRAN MAT (NEUT) % 71.8 % (test code = 770-8) IMM GRAN % (test code 0.50 % = 6079138119) LYMPH % (test code = 12.3 % 736-9) MONO % (test code = 6.9 % 5905-5) EOS % (test code = 8.0 % 713-8) BASO % (test code = 0.5 % 706-2) GRAN MAT x10^3(ANC) 9.08 10*3/uL 1.88-7.09 H (test code = 4887665834) IMM GRAN x10^3 (test 0.06 10*3/uL 0-0.06 code = 8735140456) LYMPH x10^3 (test code 1.56 10*3/uL 1.32-3.29 = 731-0) MONO x10^3 (test code 0.87 10*3/uL 0.33-0.92 = 742-7) EOS x10^3 (test code = 1.01 10*3/uL 0.03-0.39 H 711-2) BASO x10^3 (test code 0.06 10*3/uL 0.01-0.07 = 704-7) Lab Interpretation Abnormal (test code = 45655-9) [facility]2020-03-17 09:19:00 Test Item Value Reference Range Interpretation Comments MAGNESIUM (test code = 3525019018) 1.5 mg/dL 1.7-2.4 L Lab Interpretation (test code = Abnormal 42381-1) [facility]landsXR CHEST 1 [id number] 08:54:25Impression: Moderate cardiomegaly without acute pulmonary process. Status post mediansternotomy. RL: 460 AFC: [id number] Indication: Chest pain Comparison: None Findings: Single [...] acute pulmonary process. Status post mediansternotomy.RL: 460AFC: [id number] signed by Gemini Martins MD, PhD at 08/13/2019 3:54 AMUnHendrick Medical Center BrownwoodGlycosylated Hemoglobin (A1C)2019-08-13 07:12:00 Test Item Value Reference Range Interpretation Comments HGB A1C (test code = 4548-4) 10.8 % 4-6 H Lab Interpretation (test code = Abnormal 86936-4) [facility]landsN-TERMINAL [id number] 06:39:00 Test Item Value Reference Range Interpretation Comments NT-proBNP (test code 384 pg/mL See_Comment H [Autom ated = 5103996030) message] The system which generated this result transmitted reference range : <=125. The reference range was not used to interpret this result as normal/abnormal . NISHA (test code = NISHA) Biotin has been reported to cause a negative bias, interpret results relative to patient's use of biotin. Lab Interpretation Abnormal (test code = 50974-4) [facility]landsTROPONIN [id number] 06:39:00 Test Item Value Reference Range Interpretation Comments TROPONIN I (test 0.008 ng/mL See_Comment [Automated code = 0586340713) message] The system which generated this result [...] ? Lab Interpretation Normal (test code = 17297-0) [facility] METABOLIC PANEL (NA, K, CL, CO2, GLUCOSE, BUN, CREATININE, CA)2019-08-13 06:35:00 Test Item Value Reference Range Interpretation Comments NA (test code = 134 mmol/L 135-145 L 8209658052) K (test code = 4.1 mmol/L 3.5-5 2476439149) CL (test code = 102 mmol/L 98-108 3840165470) CO2 TOTAL (test code = 22 mmol/L 23-31 L 7133839823) AGAP (test code = 2-16 1159526323) BUN (test code = 23 mg/dL 7-23 6092215695) GLUCOSE (test code = 324 mg/dL 70-110 H 2294067514) CREATININE (test code = 1.07 mg/dL 0.5-1.04 H 0202441612) CALCIUM (test code = 8.4 mg/dL 8.6-10.6 L 0378217545) eGFR Calculation mL/min/1.73m2 (Non-) (test code = 4393147106) eGFR Calculation mL/min/1.73m2 () (test code = 9661090737) NISHA (test code = NISHA) Association of [...] tests). Lab Interpretation Abnormal (test code = 25272-7) [facility]aPTT2020-03-17 06:07:00 Test Item Value Reference Range Interpretation Comments APTT Patient (test code = See_Comment [ Automated message] 3173-2) The system [employer] h generated this result transmitted ref erence range: 26 - 36 Seconds. The re ference range was not u sed to interpret this result as normal/abnor mal. Lab Interpretation (test Normal code = 04443-5) [facility]landsProthrombin Time / [id number] 06:07:00 Test Item Value Reference Range Interpretation Comments PROTIME PATIENT (test See_Comment [Auto mated message] code = 5964-2) The system [employer] generated this result transmitted ref erence range: 10.1 - 1 2.6 Seconds. The re ference range was not u sed to interpret this result as normal/abnor mal. INR (test code = 6301-6) Nor mal INR <1.1; Warfarin Therap eutic range 2.0 to 3. 0 or 2.5 to 3.5, dep ending upon the indica tions. Lab Interpretation (test Normal code = 44891-1) [facility]"
--- NOTE | 2021-05-04 20:18 | RAD REPORT ---
EXAM DESCRIPTION: Erika Single View05/04/2021 7:58 pm CLINICAL HISTORY: Chest pain COMPARISON: April 13, 2021 FINDINGS: The lungs appear clear of acute infiltrate. The heart is normal size. Postsurgical change s involve the chest IMPRESSION: No acute abnormalities displayed
[2021-05-04] MEDS ORDERED: NITROGLYCERIN 0.4 MG/TAB SL ONE (20:31)
[2021-05-04] MEDS ORDERED: ONDANSETRON 4 MG/2 ML VIAL ONE (20:31)
[2021-05-04] MEDS ORDERED: MORPHINE 4 MG/ML SYR ONE (20:31)
[2021-05-04 20:36] LABS: Absolute Lymphocytes (CBC) 2.4 K/uL (0.7-4.9); Basophils % 0.8 % (0-1.3); Hematocrit 43.3 % (36.0-45.0); Lymphocytes % 21.8 % (15.3-44.8); MPV 8.9 fL (7.6-11.3); RBC Red Blood Cell Count 4.85 M/uL (3.86-4.86)
[2021-05-04 20:38] LABS: Protime INR 0.91
[2021-05-04 20:52] LABS: ALT/SGPT 18 U/L (12-78); AST/SGOT 12 U/L (15-37); Albumin 2.8 g/dL (3.4-5.0); Alkaline Phosphatase 183 U/L (45-117); BUN Blood Urea Nitrogen 10 mg/dL (7-18); Bicarbonate 22 mmol/L (21-32); Bilirubin Direct 0.1 mg/dL (0-0.2); Bilirubin Total 0.4 mg/dL (0.2-1.0); Magnesium 1.8 mg/dL (1.8-2.4); NT PRO-BNP 834 pg/mL (<125); Potassium 3.8 mmol/L (3.5-5.1); Protein, Total 7.1 g/dL (6.4-8.2); Sodium Level 134 mmol/L (136-145); Troponin (Emerg Dept Use Only) < 0.02 ng/mL (0.0-0.045)
[2021-05-04 20:53] LABS: Urine Blood 3+ (Negative); Urine Glucose 3+ (Negative); Urine Protein Negative (Negative)
[2021-05-04 20:54] LABS: Glucose Level 483 mg/dL (74-106)
[2021-05-04 21:15] LABS: Barbiturates NEGATIVE (NEGATIVE); Benzodiazepines NEGATIVE (NEGATIVE); Cocaine NEGATIVE (NEGATIVE); METHAMPHETAM NEGATIVE (NEGATIVE); Methadone NEGATIVE (NEGATIVE); Opiates NEGATIVE (NEGATIVE); Phencyclidine NEGATIVE (NEGATIVE); THC Cannibis NEGATIVE (NEGATIVE)
[2021-05-04] MEDS ORDERED: INSULIN -REGULAR HUMAN 50 UNIT/0.5 ML ML ONE (21:28)
[2021-05-04] MEDS ORDERED: NA CHLORIDE 0.9% 1,000 ML ONE (21:28)
--- NOTE | 2021-05-04 21:33 | ER ---
Nurse's Notes [facility] Name: Karen Shah Age: 50 yrs Sex: Female : 1970 Arrival Date: 05/04/2021 Time: 18:33 Bed 18 Private MD: Diagnosis: Chest pain, unspecified Presentation: 05/04 18:38 Chief complaint: Patient states: I began have chest pain earlier today, it has been ld1 constant pain. Pt also reporting hemorrhoid pain with bleeding. Coronavirus screen: At this time, the client does not indicate any symptoms associated with coronavirus-19. Ebola Screen: No symptoms or risks identified at this time. Initial Sepsis Screen: Does the patient meet any 2 criteria? No. Patient's initial sepsis screen is negative. Does the patient have a suspected source of infection? No. Patient's initial sepsis screen is negative. Risk Assessment: Do you want to hurt yourself or someone else? Patient reports no desire to harm self or others. Onset of symptoms was May 04, 2021. 18:38 Method Of Arrival: Wheelchair ld1 18:38 Acuity: ARIEL 3 ld1 Triage Assessment: 18:40 General: Appears in no apparent distress. comfortable, Behavior is cooperative, ld1 appropriate for age, anxious. Pain: Complains of pain in chest Pain does not radiate. Pain currently is 10 out of 10 on a pain scale. Quality of pain is described as throbbing. EENT: No signs and/or symptoms were reported regarding the EENT system. Neuro: Level of Consciousness is awake, alert, obeys commands, Oriented to person, place, time, situation, Appropriate for age. Cardiovascular: Capillary refill < 3 seconds Patient's skin is warm and dry. Respiratory: Airway is patent Respiratory effort is even, unlabored, Respiratory pattern is regular, symmetrical. Historical: - Allergies: 18:40 Adhesives; ld1 18:40 Toradol; ld1 18:40 tramadol; ld1 - PMHx: 18:40 CAD; CVA; Diabetes - IDDM; High Cholesterol; Hypertension; Myocardial infarction; Right ld1 AKA; Seizures; Cerebrovascular accident; Cerebrovascular accident; Angina pectoris; - PSHx: 18:40 CABG x 2; section; right AKA; ld1 - Immunization history:: Adult Immunizations up to date, Client reports receiving the 2nd dose of the Covid vaccine. - Social history:: Smoking status: Patient reports the use of cigarette tobacco products, smokes two packs cigarettes per day. Patient/guardian denies using alcohol. Assessment: 05/05 07:00 Reassessment: Report given to floor nurse by CHIDI Carlson at shift change. ll3 Vital Signs: 05/04 18:38 BP 170 / 88; Pulse 102; Resp 17; Temp 98.3(O); Pulse Ox 99% on R/A; Weight 58.97 kg; ld1 Height 5 ft. 4 in. (162.56 cm); Pain 10/10; 20:38 BP 147 / 71; Pulse 86; Resp 20 S; Pulse Ox 98% on R/A; as6 18:38 Body Mass Index 22.31 (58.97 kg, 162.56 cm) ld1 ED Course: 18:33 Patient arrived in ED. mr 18:40 Triage completed. ld1 19:27 Sánchez Nice MD is Attending Physician. 7 19:33 Aldo Crow, CHIDI is Primary Nurse. as6 19:58 XRAY Chest (1 view) In Process Unspecified. EDMS 20:38 Inserted saline lock: 22 gauge in left forearm, using aseptic technique. Blood as6 collected. 21:33 Jac Barber DO is Hospitalizing Provider. [facility] 05/05 07:00 Patient admitted, IV remains in place. ll3 07:00 Patient has correct armband on for positive identification. Bed in low position. Call ll3 light in reach. Side rails up X 1. meat inspector on. Pulse ox on. NIBP on. Administered Medications: 05/04 20:37 Drug: Zofran (Ondansetron) 4 mg Route: IVP; Site: left forearm; as6 21:54 Follow up: Response: No adverse reaction as6 20:37 Drug: morphine 4 mg Route: IVP; Site: left forearm; as6 21:54 Follow up: Response: No adverse reaction; RASS: Alert and Calm (0) as6 20:38 Drug: Nitroglycerin 0.4 mg Route: Sublingual; as6 21:54 Follow up: Response: No adverse reaction as6 21:31 Drug: Insulin Regular Human 5 units {Co-Signature: jh5 (Jill Dean RN).} Route: IVP; as6 Site: left forearm; 21:55 Follow up: Response: No adverse reaction as6 21:32 Drug: NS 0.9% 1000 ml Route: IV; Rate: 1000 ml; Site: left forearm; as6 21:54 Follow up: Response: No adverse reaction; IV Status: Completed infusion; IV Intake: as6 1000ml 21:53 Drug: Insulin NPH-Regular Human Rec 70/30 30 units {Co-Signature: letitia (Jill martinez6 RN).} Route: Sub-Q; Site: right lower abdomen; 21:55 Follow up: Response: No adverse reaction as6 Intake: 21:54 IV: 1000ml; Total: 1000ml. as6 Outcome: 21:33 Decision to Hospitalize by Provider. [facility] 05/05 08:20 Admitted to Tele accompanied by nurse, via wheelchair, room 207, with chart. 3 08:20 Patient left the ED. 3 Signatures: Dispatcher [employer] Thea Randhawa Maurice, MD MD 7 Meaghan Dean, RN RN ld1 Aldo Crow RN RN as6 Yahaira Flower, RN RN ll3 Jill Moran RN jh5 Corrections: (The following items were deleted from the chart) 08:20 07:00 Admitted to Tele accompanied by nurse, via wheelchair, room 207, with chart, 3 3
--- NOTE | 2021-05-04 21:34 | EDPHYS ---
Physician Documentation [facility] Name: Karen Shah Age: 50 yrs Sex: Female : 1970 Arrival Date: 05/04/2021 Time: 18:33 Bed 18 Private MD: ED Physician Sánchez Nice HPI: 05/04 20:15 This 50 yrs old Female presents to ER via Wheelchair with complaints of Chest mh7 Pain. 20:15 The patient or guardian reports chest pain that is located primarily in the anterior mh7 chest wall, left. Onset: this morning, today. The pain radiates to the left arm. Associated signs and symptoms: Pertinent positives: nausea, shortness of breath, Pertinent negatives: abdominal pain, cough, diaphoresis, dizziness, headache, lower extremity pain, lower extremity swelling, lightheadedness, near syncope, palpitations, recent travel, syncope, vomiting. The chest pain is described as a heaviness. Duration: The patient or guardian reports multiple episodes, that are intermittent, that wax and wane, with no pattern. Modifying factors: The symptoms are alleviated by nothing. the symptoms are aggravated by nothing. Severity of pain: At its worst the pain was moderate today, in the emergency department the pain is unchanged. Historical: - Allergies: 18:40 Adhesives; ld1 18:40 Toradol; ld1 18:40 tramadol; ld1 - PMHx: 18:40 CAD; CVA; Diabetes - IDDM; High Cholesterol; Hypertension; Myocardial infarction; Right ld1 AKA; Seizures; Cerebrovascular accident; Cerebrovascular accident; Angina pectoris; - PSHx: 18:40 CABG x 2; section; right AKA; ld1 - Immunization history:: Adult Immunizations up to date, Client reports receiving the 2nd dose of the Covid vaccine. - Social history:: Smoking status: Patient reports the use of cigarette tobacco products, smokes two packs cigarettes per day. Patient/guardian denies using alcohol. ROS: 20:15 Constitutional: Negative for fever, chills, and weight loss, Eyes: Negative for injury, mh7 pain, redness, and discharge, ENT: Negative for injury, pain, and discharge, Neck: Negative for injury, pain, and swelling. 20:15 Back: Negative for injury and pain, : Negative for injury, bleeding, discharge, and swelling, MS/Extremity: Negative for injury and deformity, Skin: Negative for injury, rash, and discoloration, Neuro: Negative for headache, weakness, numbness, tingling, and seizure, Psych: Negative for depression, anxiety, suicide ideation, homicidal ideation, and hallucinations, Allergy/Immunology: Negative for hives, rash, and allergies, Endocrine: Negative for neck swelling, polydipsia, polyuria, polyphagia, and marked weight changes, Hematologic/Lymphatic: Negative for swollen nodes, abnormal bleeding, and unusual bruising. 20:15 Abdomen/GI: Positive for rectal bleeding, Hemorrhoid bleeding. Exam: 20:15 Constitutional: This is a well developed, well nourished patient who is awake, alert, mh7 and in no acute distress. Head/Face: Normocephalic, atraumatic. Eyes: Pupils equal round and reactive to light, extra-ocular motions intact. Lids and lashes normal. Conjunctiva and sclera are non-icteric and not injected. Cornea within normal limits. Periorbital areas with no swelling, redness, or edema. Neck: Trachea midline, no thyromegaly or masses palpated, and no cervical lymphadenopathy. Supple, full range of motion without nuchal rigidity, or vertebral point tenderness. No Meningismus. Chest/axilla: Normal chest wall appearance and motion. Nontender with no deformity. No lesions are appreciated. Cardiovascular: Regular rate and rhythm with a normal S1 and S2. No gallops, murmurs, or rubs. Normal PMI, no JVD. No pulse deficits. Respiratory: Lungs have equal breath sounds bilaterally, clear to auscultation and percussion. No rales, rhonchi or wheezes noted. No increased work of breathing, no retractions or nasal flaring. Abdomen/GI: Soft, non-tender, with normal bowel sounds. No distension or tympany. No guarding or rebound. No evidence of tenderness throughout. Back: No spinal tenderness. No costovertebral tenderness. Full range of motion. Skin: Warm, dry with normal turgor. Normal color with no rashes, no lesions, and no evidence of cellulitis. MS/ Extremity: Pulses equal, no cyanosis. Neurovascular intact. Full, normal range of motion. Neuro: Awake and alert, GCS 15, oriented to person, place, time, and situation. Cranial nerves II-XII grossly intact. Motor strength 5/5 in all extremities. Sensory grossly intact. Cerebellar exam normal. Normal gait. Psych: Awake, alert, with orientation to person, place and time. Behavior, mood, and affect are within normal limits. Vital Signs: 18:38 BP 170 / 88; Pulse 102; Resp 17; Temp 98.3(O); Pulse Ox 99% on R/A; Weight 58.97 kg; ld1 Height 5 ft. 4 in. (162.56 cm); Pain 10/10; 20:38 BP 147 / 71; Pulse 86; Resp 20 S; Pulse Ox 98% on R/A; as6 18:38 Body Mass Index 22.31 (58.97 kg, 162.56 cm) ld1 MDM: 21:31 Differential diagnosis: abnormal EKG, acute myocardial infarction, acute pericarditis, 7 anxiety, coronary artery disease chest wall pain, congestive heart failure costochondritis, esophagitis, gastritis, gastroesophageal reflux disease (GERD), pericarditis, pleurisy, pneumonia. HEART Score: History: Moderately Suspicious (1), ECG: Non specific repolarization disturbance / LBTB / PM (1), Age: > 45 and < 65 years (1), Risk Factors: > or = 3 Risk factors for atherosclerotic disease (2), [Hypercholesterolemia] [Hypertension] [DM] Troponin: < or = 1 x Normal Limit (0), Total Score = 5. Data reviewed: vital signs, nurses notes, lab test result(s), cardiac enzymes, CBC, electrolytes, EKG, radiologic studies, plain films. Data interpreted: Pulse oximetry: on room air is 98 %. Interpretation: normal. Counseling: I had a detailed discussion with the patient and/or guardian regarding: the historical points, exam findings, and any diagnostic results supporting the discharge/admit diagnosis, the presence of at least one elevated blood pressure reading (>120/80) during this emergency department visit, lab results, radiology results, the need for further work-up and treatment in the hospital. 21:33 Patient medically screened. [facility] 05/04 19:40 Order name: Basic Metabolic Panel [facility] 05/04 19:40 Order name: CBC with Diff [facility] 05/04 19:40 Order name: LFT's; Complete Time: 20:54 [facility] 05/04 19:40 Order name: Magnesium; Complete Time: 20:54 7 05/04 19:40 Order name: NT PRO-BNP; Complete Time: 20:54 [facility] 05/04 19:40 Order name: PT-INR; Complete Time: 20:40 [facility] 05/04 19:40 Order name: Troponin (emerg Dept Use Only); Complete Time: 20:54 [facility] 05/04 19:40 Order name: UDS; Complete Time: 21:21 [facility] 05/04 19:40 Order name: Basic Metabolic Panel; Complete Time: 20:54 [facility] 05/04 19:40 Order name: CBC with Automated Diff; Complete Time: 20:54 [facility] 05/04 19:41 Order name: Type And Screen; Complete Time: 21:30 [facility] 05/04 20:52 Order name: Urine Dipstick-Ancillary; Complete Time: 20:54 [facility] 05/04 20:56 Order name: Urine --Ancillary (enter results); Complete Time: 21:11 [facility] 05/04 21:20 Order name: COVID-19 SARS RT PCR (Document "Date of Onset" if Symptomatic) as6 05/04 19:40 Order name: XRAY Chest (1 view); Complete Time: 20:40 [facility] 05/04 21:21 Order name: SARS-COV-2 RT PCR [facility] 05/05 04:34 Order name: CBC with Automated Diff [facility] 05/05 04:56 Order name: ABO/RH no charge [facility] 05/05 05:17 Order name: Comprehensive Metabolic Panel [facility] 05/05 05:17 Order name: Troponin I [facility] 05/05 05:17 Order name: Lipid Profile [facility] 05/05 05:17 Order name: T4 Free [facility] 05/05 05:17 Order name: Magnesium [facility] 05/05 05:17 Order name: Thyroid Stimulating Hormone [facility] 05/05 05:19 Order name: Hemoglobin A1c [facility] 05/05 07:59 Order name: Glucose, Ancillary Testing [facility] 05/04 19:40 Order name: EKG; Complete Time: 19:40 [facility] 05/04 19:40 Order name: Cardiac monitoring; Complete Time: 19:49 [facility] 05/04 19:40 Order name: EKG - Nurse/Tech; Complete Time: 20:21 [facility] 05/04 19:40 Order name: IV Saline Lock; Complete Time: 20:21 7 05/04 19:40 Order name: Labs collected and sent; Complete Time: 20:21 7 05/04 19:40 Order name: O2 Per Protocol; Complete Time: 19:49 7 05/04 19:40 Order name: O2 Sat Monitoring; Complete Time: 19:49 7 05/04 19:40 Order name: Urine Dipstick-Ancillary (obtain specimen); Complete Time: 20:55 [facility] 05/04 19:40 Order name: Urine Test (obtain specimen); Complete Time: 20:55 mh7 Administered Medications: 20:37 Drug: Zofran (Ondansetron) 4 mg Route: IVP; Site: left forearm; as6 21:54 Follow up: Response: No adverse reaction as6 20:37 Drug: morphine 4 mg Route: IVP; Site: left forearm; as6 21:54 Follow up: Response: No adverse reaction; RASS: Alert and Calm (0) as6 20:38 Drug: Nitroglycerin 0.4 mg Route: Sublingual; as6 21:54 Follow up: Response: No adverse reaction as6 21:31 Drug: Insulin Regular Human 5 units {Co-Signature: [email or web address] (Jill Moran RN).} Route: IVP; as6 Site: left forearm; 21:55 Follow up: Response: No adverse reaction as6 21:32 Drug: NS 0.9% 1000 ml Route: IV; Rate: 1000 ml; Site: left forearm; as6 21:54 Follow up: Response: No adverse reaction; IV Status: Completed infusion; IV Intake: as6 1000ml 21:53 Drug: Insulin NPH-Regular Human Rec 70/30 30 units {Co-Signature: [email or web address] (Jill elder RN).} Route: Sub-Q; Site: right lower abdomen; 21:55 Follow up: Response: No adverse reaction as6 Disposition Summary: 05/04/21 21:33 Hospitalization Ordered Hospitalization Status: Observation mh7 Provider: Jac Barber Condition: Stable mh7 Problem: new mh7 Symptoms: have improved mh7 Bed/Room Type: Standard [facility] Location: Telemetry/MedSurg (observation)(05/05/21 07:38) bd Room Assignment: [facility](05/05/21 07:38) bd Diagnosis - Chest pain, unspecified [facility] Forms: - Medication Reconciliation Form [facility] - SBAR form [facility] Signatures: Dispatcher [employer] Anjali Coronado Martha, RN RN Burton Jones, LABORATORY CHEMICAL ASSISTANT-C LABORATORY CHEMICAL ASSISTANT-Cla1 Sánchez Nice MD MD mh7 Meaghan Dean RN RN ld1 Aldo Crow RN RN as6 Jill Moran RN jh5 Corrections: (The following items were deleted from the chart) 21:33 Telemetry/MedSurg (observation) [facility] : 21:33 [facility] 05/05 07:38 12 21:59 [facility] ER HOLD [facility] 05/05 07:38 05/04 21:59 ERHOLD- [facility]
[2021-05-04] MEDS ORDERED: INSULIN 70/30 100 UNITS/ML SQ ONE (21:46)
--- NOTE | 2021-05-04 21:46 | P.HP ---
Certification for Inpatient Patient admitted to: Observation With expected LOS: <2 Midnights Patient will require the following post-hospital care: None Practitioner: I am a practitioner with admitting privileges, knowledge of patient current condition, hospital course, and medical plan of care. Services: Services provided to patient in accordance with Admission requirements found in Title 42 Section 412.3 of the Code of Federal Regulations Patient History Date of Service: 05/04/21 Primary Care Provider: [facility] Reason for admission: Chest pain History of Present Illness: 50-year-old female with history of CAD status post CABG x2, CVA, diabetes most type II, hypertension, hyperlipidemia presents the emergency department for chest pain. Patient reports left-sided chest pain radiating to left arm associated shortness of breath and nausea that began today. Patient with similar symptoms in the past but not as bad. Patient was evaluated in the emergency department initial troponin negative EKG without acute changes chest x-ray unremarkable lab significant for sodium 134 glucose 483 GFR 74 BNP 834. Patient was treated for hyperglycemia in the ER, ED provider wishes to admit under observation for chest pain rule out. Patient reports her last cardiac catheterization was a few months ago at [facility] at that time she had balloon angioplasty, patient does not know which vessels or how many were intervened on. Allergies tramadol Allergy (Mild, Verified 12/29/18 21:16) Hives/Rash adhesive tape Allergy (Verified 12/30/18 02:54) Hives ketorolac [From Toradol] Allergy (Verified 12/29/18 21:16) Hives/Rash Home Medications: Aspirin 81 mg PO DAILY #30 tab.chew 05/16/17 Atorvastatin Calcium [Lipitor] 40 mg PO BEDTIME #30 tab 05/16/17 Clopidogrel Bisulfate [Plavix] 75 mg PO DAILY #30 tablet 05/16/17 Duloxetine HCl 30 mg PO DAILY #30 capsule. 05/16/17 Pantoprazole [Protonix Tab*] 40 mg PO DAILY #30 tab 05/17/17 Insulin 70/30 NPH/Reg Human [Novolin 70/30*] 84 unit SQ BIDAC 12/30/18 Metformin HCl 1,000 mg PO BIDWM 12/30/18 Isosorbide Mononitrate [Isosorbide Mononitrate ER] 30 mg PO DAILY 12/31/18 Docosahexanoic AC/Epa [Fish Oil 1,000 MG*] 1 cap PO BID #60 cap 05/06/20 Folic Acid 1 mg PO DAILY #90 tablet 05/06/20 Gabapentin 800 mg PO TID 07/18/20 Metoprolol Succinate 100 mg PO DAILY 07/18/20 Alcohol Antiseptic Pads [Alcohol Swabs] 1 each TP TID #100 med..pad 07/21/20 Blood Sugar Diagnostic [Glucose Test Strip] 1 each MC TID #100 strip 07/21/20 Blood-Glucose Meter [Contour] 1 each MC TID #1 kit 07/21/20 Calcium Carbonate [Oscal*] 1,000 mg PO BID #60 tab 07/21/20 Cefdinir [Omnicef] 300 mg PO BID #20 capsule 07/21/20 Insulin 70/30 NPH/Reg Human [Novolin 70/30*] 20 unit SQ BIDAC #10 ml 07/21/20 Lactobacillus Acidophilus [Acidophilus] 1 each PO TID #90 tablet 07/21/20 Lancets [Lancets Thin] 1 each MC TID #100 each 07/21/20 Metformin HCl [Glucophage*] 1,000 mg PO BIDWM #60 tab 07/21/20 Phenazopyrididine [Pyridium*] 100 mg PO TID PRN #21 tab 07/21/20 Ranolazine [Ranolazine ER] 500 mg PO BID #60 tab.er.12h 07/21/20 Syring-Needl,Disp,Insul,0.3 ml [Insulin Syringe] 1 each MC TID #100 disp.syrin 07/21/20 levETIRAcetam [Keppra*] 500 mg PO BID #60 tab 07/21/20 - Past Medical/Surgical History Diabetic: Yes -: Coronary artery disease -: Diabetes mellitus type 1 -: Chronic systolic congestive heart failure -: Hypertension -: CVA -: PAD -: Hypertension -: GERD -: triple bypass (heart) 2012 -: 2 C-Sections -: double bypass 2015 -: 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 -: Below knee amputation 2014 -: Above knee amputation 2014 -: Eye surgery for detached retina 2015 Psychosocial/ Personal History: Patient lives at home with her family - Family History Father -: Heart disease, Hypertension, Diabetes Notes: Pt's father of an CT Mother -: Other (see notes) Notes: hyperlipidemia Brother -: Diabetes Notes: Brother recently diagnosed in 2016 Sister -: Hypertension - Social History Smoking Status: Never smoker Alcohol use: Yes CD- Drugs: No Caffeine use: No Place of Residence: Home Review of Systems 10-point ROS is otherwise unremarkable Cardiovascular: Chest Pain Gastrointestinal: Nausea Physical Examination - Physical Exam General: Alert, In no apparent distress, Oriented x3 HEENT: Atraumatic, PERRLA, Mucous membr. moist/pink, EOMI, Sclerae nonicteric Neck: Supple, 2+ carotid pulse no bruit, No LAD, Without JVD or thyroid abnormality Respiratory: Normal air movement, Diminished Cardiovascular: Regular rate/rhythm, Normal S1 S2 Capillary refill: <2 Seconds Gastrointestinal: Normal bowel sounds, No tenderness Musculoskeletal: No tenderness Integumentary: No rashes Neurological: Normal speech, Normal strength at 5/5 x4 extr, Normal tone, Normal affect - Studies Laboratory Data (last 24 hrs) 05/04/21 20:16: PT 10.5, INR 0.91 05/04/21 20:16: WBC 11.10 H, Hgb 14.6, Hct 43.3, Plt Count 363 05/04/21 20:16: Sodium 134 L, Potassium 3.8, BUN 10, Creatinine 0.82, Glucose 483 H*, Magnesium 1.8, Total Bilirubin 0.4, AST 12 L, ALT 18, Alkaline Patience sphatase 183 H Assessment and Plan - Plan Assessment: Chest Pain R/O ACS S/P CABG x 2 Chronic systolic CHF DM 1 with hyperglycemia CVA HTN HLD Plan: Chest Pain R/O ACS S/P CABG x 2: On telemetry, trend troponins, cardiology consulted continue home medications. Aspirin, beta-anuj, statin therapy ordered. Patient unsure of home medications likely on Plavix will confirm and restart as appropriate. Patient reports last heart catheterization was "a few months ago" at [facility] with balloon angioplasty performed. Patient states they are unable to place any stents at that time. Chronic systolic CHF: Appears stable from previous, last EF in 2019 was 33%. No pulmonary edema on chest x-ray, patient does not appear volume overloaded. Continue home meds DM 1 with hyperglycemia: Obtain continue home medications including 70/30 insulin, patient reports that she takes 50 units of 7030 twice daily, will initiate with 35 units of 7030 twice daily in addition to sliding scale. A1c for morning lab. CVA: Obtain and continue medications HTN: Obtain and continue medications HLD: Obtain and continue medications DVT PPX: lovenox Code status: FC Discharge Plan: Home Plan to discharge in: 24 Hours - Advance Directives Does patient have a Living Will: No Does patient have a Durable POA for Healthcare: No - Code Status/Comfort Care Code Status Assessed: Yes (FC) Critical Care: No Time Spent Managing Pts Care (In Minutes): 55
[2021-05-04] MEDS ORDERED: NITROGLYCERIN 0.4 MG/TAB SL PRN (23:22)
[2021-05-04] MEDS ORDERED: D50W 25 GM/50 ML SYRINGE IV PRN (23:22)
[2021-05-04] MEDS ORDERED: GLUCAGON 1 MG/VIAL IM PRN (23:22)
[2021-05-04] MEDS ORDERED: ACETAMINOPHEN 500 MG TAB PO PRN (23:22)
[2021-05-04] MEDS: NA CHLORIDE 0.9% 1,000 ML IV SCH (23:22)
[2021-05-04 23:27] VITALS: BMI 24.4
[2021-05-05] MEDS ORDERED: ONDANSETRON 4 MG/2 ML VIAL ONE (02:53)
[2021-05-05] MEDS ORDERED: MORPHINE 2 MG/ML SYR ONE (02:53)
[2021-05-05] MEDS ORDERED: NA CHLORIDE 0.9% 1,000 ML ONE (02:53)
[2021-05-05] MEDS: ONDANSETRON 4 MG/2 ML VIAL IV PRN ×2 (03:01→09:02)
[2021-05-05] MEDS: MORPHINE 2 MG/ML SYR IV PRN ×2 (03:01→09:02)
[2021-05-05 04:30] LABS: Absolute Lymphocytes (CBC) 2.6 K/uL (0.7-4.9); Basophils % 0.8 % (0-1.3); Hematocrit 42.1 % (36.0-45.0); MPV 8.6 fL (7.6-11.3)
[2021-05-05 05:14] LABS: ALT/SGPT 19 U/L (12-78); AST/SGOT 10 U/L (15-37); Albumin 2.6 g/dL (3.4-5.0); Alkaline Phosphatase 171 U/L (45-117); BUN Blood Urea Nitrogen 9 mg/dL (7-18); Bicarbonate 27 mmol/L (21-32); Bilirubin Total 0.3 mg/dL (0.2-1.0); HDL Cholesterol 34 mg/dL (40-60); LDL Cholesterol, Calculated 53 (<130); Magnesium 1.8 mg/dL (1.8-2.4); Potassium 3.8 mmol/L (3.5-5.1); Protein, Total 6.4 g/dL (6.4-8.2); Sodium Level 138 mmol/L (136-145); Troponin I < 0.02 ng/mL (0.0-0.045)
[2021-05-05 05:17] LABS: Glucose Level 465 mg/dL (74-106)
[2021-05-05] MEDS ORDERED: METOPROLOL TAR 25 MG TAB PO SCH (06:00)
[2021-05-05] MEDS ORDERED: INSULIN -REGULAR HUMAN 50 UNIT/0.5 ML ML IV ONE (06:00)
--- NOTE | 2021-05-05 06:19 | P.PN ---
Subjective Date of Service: 05/05/21 Primary Care Provider: [facility]-Dr. Zavala Chief Complaint: Chest pain Subjective: Improving, Doing well Physical Examination - Vital Signs Temperature: 97.7 F Blood Pressure: 163/88 Pulse: 88 Respirations: 18 Pulse Ox (%): 96 - Studies Laboratory Data (last 24 hrs) 05/04/21 20:16: PT 10.5, INR 0.91 05/04/21 20:16: WBC 11.10 H, Hgb 14.6, Hct 43.3, Plt Count 363 05/04/21 20:16: Sodium 134 L, Potassium 3.8, BUN 10, Creatinine 0.82, Glucose 483 H*, Magnesium 1.8, Total Bilirubin 0.4, AST 12 L, ALT 18, Alkaline Phosphatase 183 H Assessment & Plan Discharge Plan: Home Plan to discharge in: 24 Hours Physician Review Additional Text: COVID: Negative CXR: COMPARISON: April 13, 2021 FINDINGS: The lungs appear clear of acute infiltrate. The heart is normal size. Postsurgical changes involve the chest IMPRESSION: No acute abnormalities displayed Physical Exam: General: Alert, In no apparent distress, Oriented x3 HEENT: Atraumatic, PERRLA, Mucous membr. moist/pink, EOMI, Sclerae nonicteric Neck: Supple, 2+ carotid pulse no bruit, No LAD, Without JVD or thyroid abnormality Respiratory: Normal air movement, Diminished Cardiovascular: Regular rate/rhythm, Normal S1 S2 Capillary refill: <2 Seconds Gastrointestinal: Normal bowel sounds, No tenderness Musculoskeletal: No tenderness Integumentary: No rashes Neurological: Normal speech, Normal strength at 5/5 x4 extr, Normal tone, Normal affect Impression: Chest Pain R/O ACS S/P CABG x 2 Chronic systolic CHF DM 1 with hyperglycemia CVA HTN HLD Plan: Chest Pain R/O ACS S/P CABG x 2: Cardiac enzymes unremarkable. Case discussed at length with cardiology. Cardiology reports patient with an operable CAD. No intervention needed at this time. Patient with ejection fraction of 33%. Patient can be discharged home Chronic systolic CHF: Patient with EF of 33%. Cardiology recommends possible addition of DK inhibitor at discharge. DM 1 with hyperglycemia: Diabetes not well controlled at home. Hemoglobin A1c greater than 13.9. Continue with insulin 70/30 at 50 units subcu twice daily. She needs to monitor her blood sugars daily. Recommend follow-up with PCP closely for further treatment CVA: Obtain and continue medications HTN: Obtain and continue medications HLD: Obtain and continue medications DVT PPX: lovenox Code status: FC Discharge Plan: Home Time Spent Managing Pts Care (In Minutes): 55
[2021-05-05] MEDS ORDERED: INSULIN 70/30 100 UNITS/ML SQ SCH ×2 (07:30)
[2021-05-05 08:33] VITALS: O2SAT 98
[2021-05-05] MEDS ORDERED: ASPIRIN EC 81 MG TAB PO SCH (09:00)
[2021-05-05] MEDS ORDERED: ENOXAPARIN 40 MG/0.4 ML SQ SCH (09:00)
[2021-05-05] MEDS ORDERED: POTASSIUM CL SA 10 MEQ TAB PO ONE (09:00)
[2021-05-05] MEDS ORDERED: MAGNESIUM SULFATE 1 gm IVPB 1 GM/100 ML BAG IV ONE (09:00)
[2021-05-05] MEDS: INSULIN -REGULAR HUMAN 50 UNIT/0.5 ML ML SQ SCH ×2 (09:01→11:08)
[2021-05-05] MEDS: NA CHLORIDE 0.9% 1,000 ML IV SCH (09:02)
[2021-05-05 09:42] VITALS: BP 163/88; TEMP 97.7
--- NOTE | 2021-05-05 09:48 | P.DS ---
Admission Date: 05/04/21 Discharge Date: 05/05/21 Primary Care Provider: [facility]-Dr. Zavala Disposition: ROUTINE DISCHARGE Discharge Condition: GOOD Reason for Admission: Chest pain Consultations: Cardiology-Dr. Mejia Procedures: COVID: Negative CXR: COMPARISON: April 13, 2021 FINDINGS: The lungs appear clear of acute infiltrate. The heart is normal size. Postsurgical changes involve the chest IMPRESSION: No acute abnormalities displayed Medical Problem List: Chest pain with history of inoperable CAD and CABG Chronic systolic CHF Diabetes mellitus type II with hyperglycemia insulin-dependent History of CVA Seizure disorder Hypertension Hyperlipidemia Depression with anxiety Chronic pain with diabetic neuropathy GERD Brief History of Present Illness: 50-year-old female with history of hypertension, diabetes, hyperlipidemia, inoperable CAD with prior CABG. Patient presented with chest pain. Patient was admitted for treatment and for further evaluation. Hospital Course: Patient presented with chest pain. Patient with history of inoperable CAD and prior CABG. Other medical problems include diabetes, chronic systolic CHF with ejection fraction of 33%, history of CVA, seizure disorder, hypertension, hyperlipidemia, and GERD. Patient was admitted for further evaluation and treatment. Cardiac enzymes unremarkable. Cardiology was consulted for further recommendation. Cardiology recommends no heart catheterization at this time or intervention. Chest pain resolved. At discharge additional medication for blood pressure provided. This includes lisinopril for her CHF and hypertension. At discharge patient will continue with her current medications of aspirin 81 mg daily, Plavix 75 mg daily, Lipitor 40 mg daily, fish oil 1000 mg 1 pill twice daily, metoprolol 100 mg ER 1 pill daily, Ranexa 500 mg 1 pill twice daily, and Imdur 30 mg daily. New medications includes lisinopril 5 mg daily. Recommend follow-up with her [employer] functional analyst at [facility] to follow-up his hospitalization. Recommend follow-up with her PCP in 1 week to follow-up his hospitalization as well. Patient with diabetes mellitus type 2 insulin-dependent with poor control. Hyperglycemia noted. Hemoglobin A1c greater than 13.9. Patient reports poor compliance with medication and close follow-up. Patient takes insulin. At discharge recommend to continue insulin 70/30 50 units subcu twice daily and Metformin 1000 mg 1 pill twice daily. Recommend to monitor her blood sugars at least twice daily. Recommend to maintain blood sugar less than 140 fasting and less than 200 after meals. If her blood sugar remains above 200 she may increase her insulin 70/30 1 to 2 units until her blood sugars are better controlled. Recommend recheck hemoglobin A1c every 3 months. Recommend close follow-up with PCP within 1 week to further monitor and adjust medication. Patient needs strict control of her diabetes. This can be done with the help of his PCP. Patient with hypertension. As mentioned above new medication includes lisinopril. At discharge patient will continue with metoprolol ER 100 mg 1 pill daily and lisinopril 5 mg daily. Recommend to maintain blood pressure less 130/80. Further adjustment can be done by his PCP. Patient with chronic diastolic CHF. Ejection fraction around 33%. New medication includes lisinopril 5 mg daily. Education on CHF provided. Recommend to continue 1500 cc/day fluid restriction and low-salt diet. Patient will continue with medications as recommended above. Patient with hyperlipidemia. At discharge patient will continue with Lipitor 40 mg daily and fish oil 1000 mg 1 pill twice daily. Patient with history of CVA and seizure disorder. At discharge patient will continue with folic acid 1 mg daily and Keppra 500 mg 1 pill twice daily. Patient also takes aspirin 81 mg daily and Plavix 75 mg daily. Patient with chronic pain with diabetic neuropathy. At discharge patient will continue with her current medications of Cymbalta 30 mg daily and gabapentin 800 mg 1 pill 3 times a day. Patient with GERD. At discharge patient will continue with Protonix 40 mg daily. Patient will continue with her other medications including Os-Sean supplementation twice daily. Vital Signs/Physical Exam: Temp Pulse Resp BP Pulse Ox 97.7 F 88 18 163/88 H 96 05/05/21 09:42 05/05/21 09:42 05/05/21 09:42 05/05/21 09:42 05/05/21 09:42 General: Alert, In no apparent distress, Oriented x3, Cooperative HEENT: Normocephalic Neck: Supple Respiratory: Clear to auscultation bilaterally, Normal air movement Cardiovascular: Normal pulses, Regular rate/rhythm Gastrointestinal: Normal bowel sounds, No tenderness, No masses, No rebound, No guarding Musculoskeletal: No erythema, No tenderness, No warmth Integumentary: No tenderness/swelling, No erythema, No warmth, No cyanosis Neurological: Normal speech, Normal strength at 5/5 x4 extr, Normal tone, Normal affect Laboratory Data at Discharge: WBC 7.80 K/uL (4.3-10.9) D 05/05/21 04:19 Hgb 14.1 g/dL (12.0-15.0) 05/05/21 04:19 Hct 42.1 % (36.0-45.0) 05/05/21 04:19 Plt Count 329 K/uL (152-406) 05/05/21 04:19 PT 10.5 SECONDS (9.5-12.5) 05/04/21 20:16 INR 0.91 05/04/21 20:16 Sodium 138 mmol/L (136-145) 05/05/21 04:19 Potassium 3.8 mmol/L (3.5-5.1) 05/05/21 04:19 BUN 9 mg/dL (7-18) 05/05/21 04:19 Creatinine 1.08 mg/dL (0.55-1.3) 05/05/21 04:19 Glucose 465 mg/dL (74-106) H* 05/05/21 04:19 Magnesium 1.8 mg/dL (1.8-2.4) 05/05/21 04:19 Total Bilirubin 0.3 mg/dL (0.2-1.0) 05/05/21 04:19 AST 10 U/L (15-37) L 05/05/21 04:19 ALT 19 U/L (12-78) 05/05/21 04:19 Alkaline Phosphatase 171 U/L (45-117) H 05/05/21 04:19 Troponin I < 0.02 ng/mL (0.0-0.045) 05/05/21 04:19 Triglycerides 391 mg/dL (<150) H 05/05/21 04:19 Cholesterol 165 mg/dL (<200) 05/05/21 04:19 HDL Cholesterol 34 mg/dL (40-60) L 05/05/21 04:19 Cholesterol/HDL Ratio 4.85 05/05/21 04:19 Home Medications: Aspirin 81 mg PO DAILY #30 tab.chew 05/16/17 Atorvastatin Calcium [Lipitor] 40 mg PO BEDTIME #30 tab 05/16/17 Clopidogrel Bisulfate [Plavix] 75 mg PO DAILY #30 tablet 05/16/17 Duloxetine HCl 30 mg PO DAILY #30 capsule. 05/16/17 Pantoprazole [Protonix Tab*] 40 mg PO DAILY #30 tab 05/17/17 Isosorbide Mononitrate [Isosorbide Mononitrate ER] 30 mg PO DAILY 12/31/18 Docosahexanoic AC/Epa [Fish Oil 1,000 MG*] 1 cap PO BID #60 cap 05/06/20 Folic Acid 1 mg PO DAILY #90 tablet 05/06/20 Gabapentin 800 mg PO TID 07/18/20 Metoprolol Succinate 100 mg PO DAILY 07/18/20 Alcohol Antiseptic Pads [Alcohol Swabs] 1 each TP TID #100 med..pad 07/21/20 Blood Sugar Diagnostic [Glucose Test Strip] 1 each MC TID #100 strip 07/21/20 Blood-Glucose Meter [Contour] 1 each MC TID #1 kit 07/21/20 Calcium Carbonate [Oscal*] 1,000 mg PO BID #60 tab 07/21/20 Lactobacillus Acidophilus [Acidophilus] 1 each PO TID #90 tablet 07/21/20 Lancets [Lancets Thin] 1 each MC TID #100 each 07/21/20 Ranolazine [Ranolazine ER] 500 mg PO BID #60 tab.er.12h 07/21/20 Syring-Needl,Disp,Insul,0.3 ml [Insulin Syringe] 1 each MC TID #100 disp.syrin 07/21/20 levETIRAcetam [Keppra*] 500 mg PO BID #60 tab 07/21/20 Insulin 70/30 NPH/Reg Human [Novolin 70/30*] 50 unit SQ BIDAC #1 vial 05/05/21 Lisinopril [Zestril] 5 mg PO DAILY #30 tablet 05/05/21 Metformin HCl [Glucophage*] 1,000 mg PO BIDWM #120 tab 05/05/21 New Medications: Metformin HCl [Glucophage*] 1,000 mg PO BIDWM #120 tab Insulin 70/30 NPH/Reg Human [Novolin 70/30*] 50 unit SQ BIDAC #1 vial Lisinopril [Zestril] 5 mg PO DAILY #30 tablet Physician Discharge Instructions: Patient presented with chest pain. Patient with history of inoperable CAD and prior CABG. Other medical problems include diabetes, chronic systolic CHF with ejection fraction of 33%, history of CVA, seizure disorder, hypertension, hyperlipidemia, and GERD. Patient was admitted for further evaluation and treatment. Cardiac enzymes unremarkable. Cardiology was consulted for further recommendation. Cardiology recommends no heart catheterization at this time or intervention. Chest pain resolved. At discharge additional medication for blood pressure provided. This includes lisinopril for her CHF and hypertension. At discharge patient will continue with her current medications of aspirin 81 mg daily, Plavix 75 mg daily, Lipitor 40 mg daily, fish oil 1000 mg 1 pill twice daily, metoprolol 100 mg ER 1 pill daily, Ranexa 500 mg 1 pill twice daily, and Imdur 30 mg daily. New medications includes lisinopril 5 mg daily. Recommend follow-up with her peoplesoft functional analyst at [facility] to follow-up his hospitalization. Recommend follow-up with her PCP in 1 week to follow-up his hospitalization as well. Patient with diabetes mellitus type 2 insulin-dependent with poor control. Hyperglycemia noted. Hemoglobin A1c greater than 13.9. Patient reports poor compliance with medication and close follow-up. Patient takes insulin. At discharge recommend to continue insulin 70/30 50 units subcu twice daily and Metformin 1000 mg 1 pill twice daily. Recommend to monitor her blood sugars at least twice daily. Recommend to maintain blood sugar less than 140 fasting and less than 200 after meals. If her blood sugar remains above 200 she may increase her insulin 70/30 1 to 2 units until her blood sugars are better co ntrolled. Recommend recheck hemoglobin A1c every 3 months. Recommend close follow-up with PCP within 1 week to further monitor and adjust medication. Patient needs strict control of her diabetes. This can be done with the help of his PCP. Patient with hypertension. As mentioned above new medication includes lisinopril. At discharge patient will continue with metoprolol ER 100 mg 1 pill daily and lisinopril 5 mg daily. Recommend to maintain blood pressure less 130/80. Further adjustment can be done by his PCP. Patient with chronic diastolic CHF. Ejection fraction around 33%. New med ication includes lisinopril 5 mg daily. Education on CHF provided. Recommend to continue 1500 cc/day fluid restriction and low-salt diet. Patient will continue with medications as recommended above. Patient with hyperlipidemia. At discharge patient will continue with Lipitor 40 mg daily and fish oil 1000 mg 1 pill twice daily. Patient with history of CVA and seizure disorder. At discharge patient will continue with folic acid 1 mg daily and Keppra 500 mg 1 pill twice daily. Patient also takes aspirin 81 mg daily and Plavix 75 mg daily. Patient with chronic pain with diabetic neuropathy. At discharge patient will continue with her current medications of Cymbalta 30 mg daily and gabapentin 800 mg 1 pill 3 times a day. Patient with GERD. At discharge patient will continue with Protonix 40 mg daily. Patient will continue with her other medications including Os-Sean supplementation twice daily. Diet: ADA Activity: Ad buck Followup: Dev Zavala MD [Primary Care Provider] - Time spent managing pt's care (in minutes): 55
[2021-05-05] MEDS ORDERED: INFLUENZA VACCINE (for 6+ mo) 0.5 ML DOSE IMVAC ONE (12:00)
--- NOTE | 2021-05-05 12:04 | EKG ---
Test Date: 2021-05-04 Test Time: 19:10:41 [place] Guide: RIAZ MEASUREMENT RESULTS: Intervals: Rate: 93 [place]: 142 QRSD: 80 QT: 368 QTc: 457 [place]: P: 83 [place]: 142 QRS: 7 T: 54 INTERPRETIVE STATEMENTS: Normal sinus rhythm Possible Left atrial enlargement Cannot rule out Inferior infarct, age undetermined Anterior infarct, age undetermined Abnormal ECG Compared to ECG 04/13/2021 22:04:21 Left ventricular hypertrophy no longer present Myocardial infarct finding still present Electronically Signed On 05-05-21 12:02:47 PASTEURIZING SUPERVISOR by Griffin Mejia
--- NOTE | 2021-05-05 12:33 | ECHO ---
HEIGHT: 5 ft 3 in WEIGHT: 138 lb 0 oz DATE OF STUDY: 05/05/[address]: Griffin Mejia MD 2-DIMENSIONAL: YES M.MODE: YES DOPPLER: YES COLOR FLOW: YES TDS: PORTABLE: DEFINITY: BUBBLE STUDY: DIAGNOSIS: CONGESTIVE HEART FAILURE CARDIAC HISTORY: CATHERIZATION: YES SURGERY: YES PROSTHETIC VALVE: NO PACEMAKER: NO MEASUREMENTS (cm) DIASTOLIC (NORMALS) SYSTOLIC (NORMALS) IVSd 1.1 (0.6-1.2) LA Diam 3.0 (1.9-4.0) LVEF 54% LVIDd 3.3 (3.5-5.7) LVIDs 2.4 (2.0-3.5) %FS 27% LVPWd 1.1 (0.6-1.2) Ao Diam 2.4 (2.0-3.7) 2 DIMENSIONAL ASSESSMENT: RIGHT ATRIUM: NORMAL LEFT ATRIUM: NORMAL RIGHT VENTRICLE: NORMAL LEFT VENTRICLE: NORMAL TRICUSPID VALVE: NORMAL MITRAL VALVE: MITRAL ANNULAR CALCIFICATION PULMONIC VALVE: NORMAL AORTIC VALVE: SCLEROSIS PERICARDIAL EFFUSION: NONE AORTIC ROOT: NORMAL LEFT VENTRICULAR WALL MOTION: NORMAL EJECTION FRACTION. DECREASED LEFT VENTRICULAR COMPLIANCE DOPPLER/COLOR FLOW: MILD TRICUSPID REGURGITATION. COMMENTS: DECREASED LEFT VENTRICULAR COMPLIANCE. NORMAL EJECTION FRACTION. MILD TRICUSPID REGURGITATION. MITRAL ANNULAR CALCIFICATION. AORTIC SCLEROSIS TECHNOLOGIST: VIC MALIK
[2021-05-05] MEDS ORDERED: ATORVASTATIN 40 MG TAB PO SCH (21:00)
== END 2021-05-05 10:57 | disposition home or self-care (01) ==
LOC: ER 18:30 → ERHOLD 23:12 → 2ND 05-05 07:41
PROVIDERS: ADMIT Family Medicine; ATTEND Family Medicine
DX: R07.9 Chest pain, unspecified (principal); I25.10 Atherosclerotic heart disease of native coronary artery without angina pectoris; E11.65 Type 2 diabetes mellitus with hyperglycemia; I11.0 Hypertensive heart disease with heart failure; I50.22 Chronic systolic (congestive) heart failure; G40.909 Epilepsy, unspecified, not intractable, without status epilepticus; E78.5 Hyperlipidemia, unspecified; F41.8 Other specified anxiety disorders; E11.40 Type 2 diabetes mellitus with diabetic neuropathy, unspecified; K21.9 Gastro-esophageal reflux disease without esophagitis; Z95.1 Presence of aortocoronary bypass graft; Z86.73 Personal history of transient ischemic attack (TIA), and cerebral infarction without residual deficits; Z91.14 Patient's other noncompliance with medication regimen; Z79.4 Long term (current) use of insulin; Z89.611 Acquired absence of right leg above knee; Z20.822 Contact with and (suspected) exposure to COVID-19
CPT/HCPCS: 93005; 93306; 85025 ×2; 80048; 36415; 86900; 83735 ×2; 86850; 81025; 85610; 80061; 86901; 82947 ×2; 80076; 84443; 81003; 83036; 84484 ×3; 84439; 80053; 83880; 80307; 71045; 96375; 96372; 96374; 99285; U0003; J1650; J3475; J2270 ×2; J7030 ×3; J2405 ×3; G0378 ×2; J1815

== ENCOUNTER 2021-05-15 04:48 | Emergency (ER) | payer OTHER ==
--- OUTSIDE RECORDS SUMMARY | 2021-05-15 05:15 | XMS REPORT | Continuity of Care Document ---
:1970 Author Organization [facility] [place] [facility] t Address [address] [place] [address] Care Team Providers Name Role Phone Igor BROWN, Bennie Primary Care Physician Michael VILLEGAS Attending Clinician Unavailable Doctor Unassigned, Name Attending Clinician Unavailable Joan Nieves DO Attending Clinician Bang ESPINOZA Attending Clinician BANG Attending Clinician Unavailable Fredy MURILLO, B Attending Clinician Unavailable Roger KING Attending Clinician Gregory BROWN Attending Clinician GREGORY Attending Clinician Unavailable Michael Villegas MD Attending Clinician Igor BROWN, Bennie Attending Clinician Lc Leonard Attending Clinician Han BROWN, Marco Attending Clinician Hosea BROWN, Kyle Attending Clinician Bennie COSTA Attending Clinician Unavailable Trace BROWN, Bennie Attending Clinician Pcp, Does Not Have A Attending Clinician Vance BROWN Attending Clinician VANCE Attending Clinician Unavailable Lisa MURILLO, A Attending Clinician Unavailable Jeanmarie ESPINOZA, F Attending Clinician Enzo BROWN S Attending Clinician Alessadnra BROWN Attending Clinician Tomás BROWN Attending Clinician Art Barrett DO Attending Clinician Kylah Salinas MD Attending Clinician Kylah SALINAS Attending Clinician Unavailable Eligio Garsia MD Attending Clinician 1, Lab Attending Clinician Unavailable [...] Expiration Date Vero neal MEDICARE PART A [id number] 2017 \\T\\ B 00:00:00 Problems Condition Condition Condition Status Onset Resolution Last Treating Co mments Source Name Details Category Date Date Treatment Clinician Date UTI UTI Disease Active Univers (urinary (urinary 8-20 ity of tract tract 00:00: [place] infection) infection) 00 Dc dical Branch Dizziness Dizziness Disease Active Uni vers 8-20 ity of 00:00: [place] 00 Medical Branch Weakness Weakness Disease Active Unive rs 8-20 ity of 00:00: [place] 00 [facility] Branch CAD in CAD in Disease Active Univers [place] 7-05 ity of artery artery 00:00: [place] [facility] Hypoglycem Hypoglycem Disease Active U nivers ia ia 6-11 ity of 00:00: [place] 00 [facility] 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 5-06 it y of on on 00:00: [place] Medical Branch Poor Poor Disease Active Univers [...] 00:00: [place] involving involving 00 Medi [place] Branch coronary coronary artery of artery of [place] heart heart without without angina angina pectoris [...] 00:00: [place] involving involving 00 Medi [place] Branch coronary coronary artery of artery of [place] heart heart without without angina angina pectoris pectoris PAD PAD Disease Active Univers (periphera (periphera 3-09 it y of l artery l artery 00:00: [place] disease) disease) 00 Medica l Branch GARY GARY Disease Active Overview: Univer s (stress (stress 02-02 Formattin ity o f urinary urinary 00:00: g of this [place] incontinen incontinen 00 note Me dical ce, ce, might be Branch female) female) different from the original. Added automatic ally from request for surgery [id number] GERD GERD Disease Active Univers (gastroeso (gastroeso it y of phageal phageal [place] reflux reflux Medical disease) disease) Branch DM DM Disease Active Univers (diabetes (diabetes ity of mellitus) mellitus) [facility] Depression Depression Disease Active U nivers ity of [facility] CVA CVA Disease Active Univers (cerebral (cerebral ity of vascular vascular [place] accident) accident) [facility] CHF CHF Disease Active Univers (congestiv (congestiv it y of e heart e heart [place] failure) failure) [facility] Anxiety Anxiety Disease Active Univers ity of [facility] Angina Angina Disease Active Univers pectoris pectoris ity of [facility] H/O right H/O right Disease Active Uni vers coronary coronary ity of artery artery [place] stent stent Medical placement placement Bran ch Hyperlipid Hyperlipid Disease Active U nivers emia, emia, ity of unspecifie [place]specifie [place] d d Medical hyperlipid hyperlipid Br anch emia type emia type Essential Essential Disease Active Uni vers hypertensi hypertensi [facility], [facility] Hx of CABG Hx of CABG Disease Active U nivers ity of [facility] Migraines Migraines Disease Active Uni vers ity of [facility] Seizures Seizures Disease Active Unive rs ity of [facility] Unilateral Unilateral Disease Active U nivers AKA, right AKA, right it y of [facility] High High Disease Active Univers cholestero cholestero it y of l l [facility] HTN HTN Disease Active Univers (hypertens (hypertens it y of ion) ion) [facility] Unilateral Unilateral Disease Active U nivers AKA, right AKA, right it y of [facility] Unilateral Unilateral Disease Active U nivers AKA, right AKA, right it y of [facility] History of History of [...] [facility] Chronic Chronic Problem Active [facility] pain pain [facility] - disorder disorder Memori a l [facility] 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 [facility] current current [facility] - use of use of Memoria insulin insulin l [facility] Neuropathy Neuropathy Problem [facility] Depression Depression Problem Active [facility] with with [facility] anxiety anxiety [facility] HTN HTN Problem Active [facility] (hypertens (hypertens Charley kes - ion), ion), Memoria benign benign l [facility] Seizures Seizures Problem [facility] Coronary Coronary Problem Active [facility] t artery artery [facility] - disease disease Memoria involving involving l coronary coronary Outpat i bypass bypass ent graft of graft of Clinic s [place] heart with heart with angina angina pectoris pectoris Dependent Dependent Problem Active [facility] on on [facility] - wheelchair wheelchair Me moria l [facility] History of History of Problem Active [facility] right right [facility] - above knee above knee Me moria amputation [facility] l [facility] Allergies, Adverse Reactions, Alerts Allergy [...] History of tobacco Cigarette Smoker [facility] Exposure to Not sure [place] of SARS-CoV-2 (event) [facility] Alcohol intake 2021-02-12 2021-02-12 Ex-drinker [facility] 00:00:00 00:00:00 (finding) [facility] Education 2021-01-15 2021-01-15 12 [facility] 00:00:00 00:00:00 [place] [facility] History SDOH 2020-05-08 2020-05-08 99 University o f Alcohol Frequency 00:00:00 00:00:00 [facility] SDOH 2020-05-08 2020-05-08 99 University o f Alcohol Std Drinks 00:00:00 00:00:00 [facility] Branch History [facility] 2020-05-08 2020-05-08 99 [place] o f Alcohol Binge 00:00:00 00:00:00 [facility] Branch Tobacco Comment 2020-04-03 2020-04-03 smoking since 12 Uni versity of 00:00:00 00:00:00 years old [facility] Alcohol Comment 2019-10-11 2019-10-11 rare Universit y of 00:00:00 00:00:00 [facility] Cigarettes smoked 2018-02-21 2018-02-21 Univers ity of current (pack per 00:00:00 00:00:00 [facility] ) - Reported Branch Tobacco use and 2018-02-21 2018-02-21 Never used Universit y of exposure 00:00:00 00:00:00 [facility] Sex [birth year] Universit y of 00:00:00 00:00:00 [facility] Smoking Status Start Date Stop Date Source Current every day smoker 2018-02-21 00:00:00 Uni versity of [facility] Medications Ordered Filled Start Stop Current Ordering Indication Dosage Frequency Signature Comments Components Source Medication Medication Date Date Medication? Clinician (SIG) Name Name cefTRIAXone 2020- No 1000mg 1,000 mg, Univers (ROCEPHIN) 02-12 IV ity of 1,000 mg in 22:45: 10:44 [place], [place] NaCl 0.9% 00 :00 ONCE, 1 Medical (NS) 50 mL dose, On Branc h MINI-BAG Mon02/12/21 at 1745, Administer over 30 Minutes, 50 mL
Reas on for Anti-Infec tive: Empiric Therapy for Suspected Infection< br>Empiric Therapy Site: Urine
D uration of therapy: 72 hours cefTRIAXone No 1000mg 1,000 mg, Univers (ROCEPHIN) 02-12 IV ity of 1,000 mg in 22:45: 10:44 [place], [place] NaCl 0.9% 00 :00 ONCE, 1 Medical (NS) 50 mL dose, On Branc h MINI-BAG Mon02/12/21 at 1745, Administer over 30 Minutes, 50 mL
Reas on for Anti-Infec tive: Empiric Therapy for Suspected Infection< br>Empiric Therapy Site: Urine
D uration of therapy: 72 hours insulin 2020- No 10U 10 Units, Univ ers regular 02-12 Slow IV ity of human 21:30: 21:29 Push, [place] (HUMULIN R) 00 :00 ONCE, 1 Medic al injection dose, On Branch 10 Units Mon02/12/21 at 1630, Routine NaCl 0.9% 2020- No 1000mL at 999 Uni vers (NS) bolus 02-12 mL/hr, ity of infusion 21:30: 22:08 1,000 mL, Raffy as 1,000 mL 00 :00 IV [facility] ONCE, 1 dose, On Mon02/12/21 at 1630, STAT insulin 2020- No 10U 10 Units, Univ ers regular 02-12 Slow IV ity of human 21:30: 21:29 [place] (HUMULIN R) 00 :00 ONCE, 1 Medic al injection dose, On Branch 10 Units Mon21 at 1630, Routine NaCl 0.9% No 1000mL at 999 Uni vers (NS) bolus 02-12 mL/hr, ity of infusion 21:30: 22:08 1,000 mL, Raffy as 1,000 mL 00 :00 IV Medical Piggyback, Branch ONCE, 1 dose, On 02/12/21 at 1630, STAT cefpodoxime 2020- No [id number] 100mg Take 1 Univers 100 mg 02-12 tablet by ity of tablet 00:00: 04:59 mouth 2 [place] 00 :00 (two) Medical times [place] daily for 7 days. cefpodoxime 2020- No [id number] 100mg Take 1 Univers 100 mg 02-12 tablet by ity of tablet 00:00: 04:59 mouth 2 [place] 00 :00 (two) Medical times [place] daily for 7 days. glipiZIDE 2020- No [id number] 10mg Take 1 U nivers 10 mg 01-18 tablet by ity of tablet 00:00: 04:59 mouth [place] 00 :00 daily for Medical 30 days. Branch glipiZIDE 2020- No [id number] 10mg Take 1 U nivers 10 mg 01-18 tablet by ity of tablet 00:00: 04:59 mouth [place] 00 :00 daily for Medical 30 days. [place] glipiZIDE 2020- No [id number] 10mg Take 1 U nivers 10 mg 01-18 tablet by ity of tablet 00:00: 00:00 mouth [place] 00 :00 daily for Medical 30 days. Branch glipiZIDE Yes 10mg 10 mg, Univer s (GLUCOTROL) 01-17 Oral, ity of tablet 10 14:00: DAILY, [place] mg 00 First dose Medical on Sun Branch 01/17/21 at 0900, Until Discontinu ed, Routine fluconazole No 150mg 150 mg, U nivers (DIFLUCAN) 01-17 Oral, ity of tablet 150 14:00: 13:24 DAILY, 1 [place] mg 00 :00 dose, Medical First dose Branch (after last modificati on) on 01/17/21 at 0900, TRANG<br&gt ;Reason for Anti-Infec tive: Documented Infection< br>Documen anthony Infection Site: Urine<br&g t;Duration of Therapy: Other (see Comments) nicotine 14 2020- No [id number] 1{patch Apply 1 Univers mg/24 hr 01-17-20 } Patch to ity of patch 00:00: 04:59 area(s) [place] 00 :00 every 24 Medical ([facility] ur) hours for 28 days. nicotine 14 2020- No [id number] 1{patch Apply 1 Univers mg/24 hr 01-17-20 } Patch to ity of patch 00:00: 04:59 area(s) [place] 00 :00 every 24 Medical ([facility] ur) hours for 28 days. nicotine 14 2020- No [id number] 1{patch Apply 1 Univers mg/24 hr 01-17-20 } Patch to ity of patch 00:00: 04:59 area(s) [place] 00 :00 every 24 Medical ([facility] ur) hours for 28 days. nicotine 14 2020- No [id number] 1{patch Apply 1 Univers mg/24 hr 01-17-20 } Patch to ity of patch 00:00: 04:59 area(s) [place] 00 :00 every 24 Medical ([facility] ur) hours for 28 days. nicotine 14 2020- No [id number] 1{patch Apply 1 Univers mg/24 hr 01-17-20 } Patch to ity of patch 00:00: 04:59 area(s) [place] 00 :00 every 24 Medical ([facility] ur) hours for 28 days. ciprofloxac 2020- No [id number] 500mg Take 1 Univers in HCl 500 8 08-30 tablet by ity of mg tablet 00:00: 04:59 mouth [place] 00 :00 every 12 [facility] Branch hours for 7 days. ciprofloxac 2020- No [id number] 500mg Take 1 Univers in HCl 500 8 08-30 tablet by ity of mg tablet 00:00: 04:59 mouth [place] 00 :00 every 12 Medical ([facility]) Branch hours for 7 days. KCL 2020- No 60meq 60 mEq, Univers (KLOR-CON 01-16 Oral, ity of M20) tablet 16:00: 16:43 ONCE, 1 [place] 60 mEq 00 :00 dose, [facility] Medical 01/16/21 at Branch 1100, Routine cefTRIAXone 0 Yes 1000mg 1,000 mg, Univers (ROCEPHIN) 01-16 IV ity of 1,000 mg in 14:30: Piggyback, [place] NaCl 0.9% 00 Q24H ABX, Medic al (NS) 50 mL First dose [facility] MINI-BAG on [facility] 01/16/21 at 0930, Until Discontinu ed, Administer over 30 Minutes, 50 mL
Reas on for Anti-Infec tive: Empiric Therapy for Suspected Infection< br>Empiric Therapy Site: Urine
D uration of therapy: 7 days pantoprazol Yes 40mg 40 mg, Univ ers e 01-16 Oral, ity of (PROTONIX) 14:00: DAILY, [place] EC tablet 00 First dose Medi blanquita 40 mg on [facility] Branch 01/16/21 at 0900, Until Discontinu ed, Routine ezetimibe Yes 10mg 10 mg, Univer s (ZETIA) 01-16 Oral, ity of tablet 10 14:00: DAILY, [place] mg 00 First dose Medical on [facility] 01/16/21 at 0900, Until Discontinu ed, Routine clopidogreL 0 Yes 75mg 75 mg, Univ ers (PLAVIX) 01-16 Oral, ity of tablet 75 14:00: DAILY, [place] mg 00 First dose Medical on [facility] 01/16/21 at 0900, Until Discontinu ed, Routine aspirin 2020-0 Yes 81mg 81 mg, Univers chewable 01-16 Oral, ity of tablet 81 14:00: DAILY, [place] mg 00 First dose Medical on [facility] 01/16/21 at 0900, Until Discontinu ed, Routine fluconazole 2020- No 150mg 150 mg, U nivers (DIFLUCAN) 01-16 Oral, ity of tablet 150 14:00: 20:40 DAILY, [place] mg 00 :05 First dose Medical on [facility] 01/16/21 at 0900, Until Discontinu ed, TRANG
Re ason for Anti-Infec tive: Documented Infection< br>Documen anthony Infection Site: Urine
D uration of Therapy: Other (see Comments) Sliding 2020- Yes Subcutaneo Univ ers Scale 01-16 us, TID ity of Insulin - 13:00: MEALS, [place] Lispro 00 First dose Medical (HumaLOG) + (after [place] Fsbg last Testing modificati on) on [facility] 01/16/21 at 0800, Until Discontinu ed, Routine insulin NPH No 15U 15 Units, Univers and regular 01-16 Subcutaneo i ty of human 70-30 02:30: 01:47 us, ONCE, [place] (HUMULIN 00 :00 1 dose, Medical 70-30 U-100 Mon [place] INSULIN) 01/15/21 at 100 unit/mL 2130, (70-30) Routine injection 15 Units mirtazapine Yes 15mg 15 mg, Univ ers (REMERON) 01-16 Oral, QHS, ity of tablet 15 02:00: First dose [place] mg 00 on Mon [facility] 01/15/21 at Branch 2100, Until Discontinu ed, Routine atorvastati Yes 80mg 80 mg, Univ ers n (LIPITOR) 01-16 Oral, QHS, it y of tablet 80 02:00: First dose [place] mg 00 on Mon [facility] 01/15/21 at Branch 2100, Until Discontinu ed, Routine gabapentin Yes 800mg 800 mg, Uni vers (NEURONTIN) 01-16 Oral, TID, it y of tablet 800 01:00: First dose [place] mg 00 on Mon [facility] 01/15/21 at Branch 2000, Until Discontinu ed, Routine nicotine Yes 1{patch 1 Patch, Un cali (NICODERM) 01-15 } Topical, ity o f 14 mg/24 hr 23:15: Administer [place] patch 1 00 over 24 Medical Patch Hours, [place] Q24H, First dose on Mon01/15/21 at 1815, Until Discontinu ed, Routine insulin NPH Yes 40U 40 Units, U nivers and regular 8-20 Subcutaneo it y of human 70-30 22:45: us, BIDAC, [place] (HUMULIN 00 First dose Medic al 70-30 U-100 on Mon Branch INSULIN) 01/15/21 at 100 unit/mL 1745, [...] ity of Insulin - 22:45: 01:18 MEALS, [place] Lispro 00 :16 First dose Medical (HumaLOG) + on Mon Branch Fsbg 01/15/21 at Testing 1745, Until Discontinu ed, Routine enoxaparin Yes 40mg 40 mg, Unive rs (LOVENOX) 01-15 Subcutaneo ity of injection 22:00: us, DAILY, [place] 40 mg 00 First dose Medical on Fri Branch 01/15/21 at 1700, Until Discontinu ed, Routine morpHINE 2020-0 Yes 2mg 2 mg, Slow Uni vers injection 2 8-20 IV Push, ity of mg 21:58: Q4HPRN, [place] 52 Starting Medical Fri Branch 01/15/21 at 1658, Until Discontinu ed, Routine, Pain (scale 7-10) ondansetron Yes 4mg 4 mg, Slow Univers (ZOFRAN 8-20 IV Push, ity of (PF)) 21:32: Q6HPRN, [place] injection 4 17 Starting Medi blanquita mg Fri Branch 01/15/21 at 1632, Until Discontinu ed, Routine, Nausea and Vomiting (N/V) HYDROcodone 2020-0 2020- No 1{tbl} 1 tablet, Univers -acetaminop 01-15 Oral, ity of hen (NORCO 21:31: 21:30 Q6HPRN, [place] as 5) 5-325 mg 58 :58 Starting Medi blanquita tablet 1 Fri Branch tablet 01/15/21 at 1631, Until 01/17/21 at 1630, Routine, Pain (scale 4-6) acetaminoph 2020-0 Yes 650mg 650 mg, Un cali en 8-20 Oral, ity of (TYLENOL) 21:31: Q6HPRN, [place] tablet 650 47 Starting Medic al mg Fri Branch 01/15/21 at 1631, Until Discontinu ed, Routine, Pain (scale 1-3) gabapentin 2020-0 Yes [id number] 800mg Take 1 Univers 800 mg 8-20 tablet by ity of tablet 00:00: mouth (three) Medical times Branch daily. gabapentin 2020-0 Yes [id number] 800mg Take 1 Univers 800 mg 8-20 tablet by ity of tablet 00:00: mouth ([facility]) Medical times Branch daily. gabapentin 2020-0 Yes [id number] 800mg Take 1 Univers 800 mg 8-20 tablet by ity of tablet 00:00: mouth ([facility]) Medical times Branch daily. gabapentin 2020-0 Yes [id number] 800mg Take 1 Univers 800 mg 8-20 tablet by ity of tablet 00:00: mouth ([facility]) Medical times Branch daily. gabapentin 2020-0 Yes [id number] 800mg Take 1 Univers 800 mg 8-20 tablet by ity of tablet 00:00: mouth ([facility]) Medical times Branch daily. gabapentin 2020-0 Yes [id number] 800mg Take 1 Univers 800 mg 8-20 tablet by ity of tablet 00:00: mouth ([facility]) Medical times Branch daily. gabapentin 2020-0 Yes [id number] 800mg Take 1 Univers 800 mg 8-20 tablet by ity of tablet 00:00: mouth ([facility]) Medical times Branch daily. gabapentin 2020-0 Yes [id number] 800mg Take 1 Univers 800 mg 8-20 tablet by ity of tablet 00:00: mouth (three) Medical times Branch daily. gabapentin 2020-0 Yes [id number] 800mg Take 1 Univers 800 mg 8-20 tablet by ity of tablet 00:00: mouth (three) Medical times Branch daily. ondansetron 2020-0 Yes [id number] 4mg Take 1 Univers 4 mg 8-06 tablet by ity of disintegrat 00:00: mouth [place] ing tablet 00 every 8 Medica l (eight) Branch hours as needed for Nausea and Vomiting (N/V). glucagon 3 2020- Yes [id number] 1{spray Use 1 Univers mg/actuatio 8-06 } [place] in ity of n [place] 00:00: each [place] 00 nostril as Medical needed Branch (hypoglyce filomena). ondansetron Yes [id number] 4mg Take 1 Univers 4 mg 8-06 tablet by ity of disintegrat 00:00: mouth [place] ing tablet 00 every 8 Medica l (eight) Branch hours as needed for Nausea and Vomiting (N/V). glucagon 3 Yes [id number] 1{spray Use 1 Univers mg/actuatio 8-06 } [place] in ity of n [place] 00:00: each [place] 00 nostril as Medical needed Branch (hypoglyce filomena). ondansetron Yes [id number] 4mg Take 1 Univers 4 mg 8-06 tablet by ity of disintegrat 00:00: mouth [place] ing tablet 00 every 8 Medica l (eight) Branch hours as needed for Nausea and Vomiting (N/V). glucagon 3 Yes [id number] 1{spray Use 1 Univers mg/actuatio 8-06 } [place] in ity of n [place] 00:00: each [place] 00 nostril as Medical needed Branch (hypoglyce filomena). ondansetron Yes [id number] 4mg Take 1 Univers 4 mg 8-06 tablet by ity of disintegrat 00:00: mouth [place] ing tablet 00 every 8 Medica l (eight) Branch hours as needed for Nausea and Vomiting (N/V). ondansetron 0 Yes [id number] 4mg Take 1 Univers 4 mg 8-06 tablet by ity of disintegrat 00:00: mouth [place] ing tablet 00 every 8 Medica l (eight) Branch hours as needed for Nausea and Vomiting (N/V). ondansetron 2020-0 Yes [id number] 4mg Take 1 Univers 4 mg 8-06 tablet by ity of disintegrat 00:00: mouth [place] ing tablet 00 every 8 Medica l (eight) Branch hours as needed for Nausea and Vomiting (N/V). ondansetron Yes [id number] 4mg Take 1 Univers 4 mg 8-06 tablet by ity of disintegrat 00:00: mouth [place] ing tablet 00 every 8 Medica l (eight) Branch hours as needed for Nausea and Vomiting (N/V). ondansetron Yes [id number] 4mg Take 1 Univers 4 mg 8-06 tablet by ity of disintegrat 00:00: mouth [place] ing tablet 00 every 8 Medica l (eight) Branch hours as needed for Nausea and Vomiting (N/V). ondansetron Yes [id number] 4mg Take 1 Univers 4 mg 8-06 tablet by ity of disintegrat 00:00: mouth [place] ing tablet 00 every 8 Medica l (eight) Branch hours as needed for Nausea and Vomiting (N/V). ondansetron Yes [id number] 4mg Take 1 Univers 4 mg 8-06 tablet by ity of disintegrat 00:00: mouth [place] ing tablet 00 every 8 Medica l (eight) Branch hours as needed for Nausea and Vomiting (N/V). ondansetron Yes [id number] 4mg Take 1 Univers 4 mg 8-06 tablet by ity of disintegrat 00:00: mouth [place] ing tablet 00 every 8 Medica l (eight) Branch hours as needed for Nausea and Vomiting (N/V). glucagon 2020- No [id number] 1{spray Use 1 Univers mg/actuatio 8- 08-20 } [place] in ity of n [place] 00:00: 00:00 each [place] 00 :00 nostril as Medical needed Branch (hypoglyce filomena). glucagon 2020- No [id number] 1{spray Use 1 Univers mg/actuatio 8- 08-20 } [place] in ity of n [place] 00:00: 00:00 each [place] 00 :00 nostril as Medical needed Branch (hypoglyce filomena). glucagon 3 2020- No [id number] 1{spray Use 1 Univers mg/actuatio 8- 08-20 } [place] in ity of n [place] 00:00: 00:00 each [place] 00 :00 nostril as Medical needed Branch (hypoglyce filomena). GABAPENTIN 2021-0 Yes [id number] TAKE 1 Univers 800 mg 7-23 TABLET BY ity of tablet 00:00: MOUTH [place] 00 THREE Medical TIMES Branch DAILY GABAPENTIN 2020-0 1- No [id number] TAKE 1 Univers 800 mg 7-23 08-19 TABLET BY ity of tablet 00:00: 00:00 MOUTH [place] 00 :00 THREE Medical TIMES Branch DAILY GABAPENTIN 2020-0 2021- No [id number] TAKE 1 Univers 800 mg 7-23 08-19 TABLET BY ity of tablet 00:00: 00:00 MOUTH [place] 00 :00 THREE Medical TIMES Branch DAILY aspirin 81 2020-0 Yes [id number] 81mg Take 1 U nivers mg chewable 7-07 tablet by ity of tablet 00:00: mouth [place] 00 daily. Medical Branch clopidogreL 2020-0 Yes [id number] 75mg Take 1 Univers 75 mg 7-07 tablet by ity of tablet 00:00: mouth [place] 00 daily. Medical Branch aspirin 81 2020-0 Yes [id number] 81mg Take 1 U nivers mg chewable 7-07 tablet by ity of tablet 00:00: mouth [place] 00 daily. Medical Branch clopidogreL 2020-0 Yes [id number] 75mg Take 1 Univers 75 mg 7-07 tablet by ity of tablet 00:00: mouth [place] 00 daily. Medical Branch aspirin 81 2020-0 Yes [id number] 81mg Take 1 U nivers mg chewable 7-07 tablet by ity of tablet 00:00: mouth [place] 00 daily. Medical Branch clopidogreL 2020-0 Yes [id number] 75mg Take 1 Univers 75 mg 7-07 tablet by ity of tablet 00:00: mouth [place] 00 daily. Medical Branch aspirin 81 2020-0 Yes [id number] 81mg Take 1 U nivers mg chewable 7-07 tablet by ity of tablet 00:00: mouth [place] 00 daily. Medical Branch clopidogreL 2020-0 Yes [id number] 75mg Take 1 Univers 75 mg 7-07 tablet by ity of tablet 00:00: mouth [place] 00 daily. Medical Branch aspirin 81 2020-0 Yes [id number] 81mg Take 1 U nivers mg chewable 7-07 tablet by ity of tablet 00:00: mouth [place] 00 daily. Medical Branch clopidogreL 2020-0 Yes [id number] 75mg Take 1 Univers 75 mg 7-07 tablet by ity of tablet 00:00: mouth [place] 00 daily. Medical Branch aspirin 81 2020-0 Yes [id number] 81mg Take 1 U nivers mg chewable 7-07 tablet by ity of tablet 00:00: mouth [place] 00 daily. Medical Branch clopidogreL 202-0 Yes [id number] 75mg Take 1 [facility] 75 mg 7-07 tablet by ity of tablet 00:00: mouth [place] 00 daily. [facility] Branch aspirin 81 2020-0 Yes [id number] 81mg Take 1 U nivers mg chewable 7-07 tablet by ity of tablet 00:00: mouth [place] 00 daily. [facility] clopidogreL 2020-0 Yes [id number] 75mg Take 1 [facility] 75 mg 7-07 tablet by ity of tablet 00:00: mouth [place] 00 daily. [facility] aspirin 81 2020-0 Yes [id number] 81mg Take 1 U nivers mg chewable 7-07 tablet by ity of tablet 00:00: mouth [place] 00 daily. [facility] clopidogreL 2020-0 Yes [id number] 75mg Take 1 [facility] 75 mg 7-07 tablet by ity of tablet 00:00: mouth [place] 00 daily. [facility] aspirin 81 2020-0 Yes [id number] 81mg Take 1 U nivers mg chewable 7-07 tablet by ity of tablet 00:00: mouth [place] 00 daily. [facility] clopidogreL 2020-0 Yes [id number] 75mg Take 1 [facility] 75 mg 7-07 tablet by ity of tablet 00:00: mouth [place] 00 daily. [facility] aspirin 81 2020-0 Yes [id number] 81mg Take 1 U nivers mg chewable 7-07 tablet by ity of tablet 00:00: mouth [place] 00 daily. [facility] clopidogreL 2021-0 Yes [id number] 75mg Take 1 [facility] 75 mg 7-07 tablet by ity of tablet 00:00: mouth [place] 00 daily. [facility] aspirin 81 2020-0 Yes [id number] 81mg Take 1 U nivers mg chewable 7-07 tablet by ity of tablet 00:00: mouth [place] 00 daily. [facility] clopidogreL 2021-0 Yes [id number] 75mg Take 1 [facility] 75 mg 7-07 tablet by ity of tablet 00:00: mouth [place] 00 daily. [facility] aspirin 81 2020-0 Yes [id number] 81mg Take 1 U nivers mg chewable 7-07 tablet by ity of tablet 00:00: mouth [place] 00 daily. [facility] aspirin 81 0 Yes [id number] 81mg Take 1 U nivers mg chewable 12-02 tablet by ity of tablet 00:00: mouth [place] 00 daily. [facility] clopidogreL 0 Yes [id number] 75mg Take 1 [facility] 75 mg 7-07 tablet by ity of tablet 00:00: mouth [place] 00 daily. [facility] clopidogreL 0 Yes [id number] 75mg Take 1 [facility] 75 mg 7-07 tablet by ity of tablet 00:00: mouth [place] 00 daily. Medical Branch aspirin 81 2020-0 202- No 81mg Take 1 Univ ers mg chewable 12-01- tablet by it y of tablet 18:00: 00:00 mouth [place] 57 :00 daily. Medical Branch ezetimibe Yes 10mg 10 mg, Univer s (ZETIA) 12-01 Oral, ity of tablet 10 14:00: DAILY, [place] mg 00 First dose Medical on [facility] 12/01/20 at 0900, Until Discontinu ed, Routine pantoprazol Yes 40mg 40 mg, Univ ers e 12-01 Oral, ity of (PROTONIX) 14:00: DAILY, [place] EC tablet 00 First dose Medi blanquita 40 mg on [facility] 12/01/20 at 0900, Until Discontinu ed, Routine clopidogreL Yes [id number] 75mg 75 mg, Univers (PLAVIX) 12-01 Oral, ity of tablet 75 14:00: DAILY, [place] mg 00 First dose Medical on [facility] 12/01/20 at 0900, Until Discontinu ed, Routine
[employer] member approving Restricted medication : [place] aspirin 0 Yes [id number] 81mg 81 mg, Univ ers chewable 12-01 Oral, ity of tablet 81 14:00: DAILY, [place] mg 00 First dose Medical on [facility] 12/01/20 at 0900, Until Discontinu ed, Routine heparin Yes 5000U 5,000 [facility] (porcine) 12-01 Units, ity of injection 13:00: Subcutaneo [place] 5,000 Units 00 us, Q12H, Med ical First dose Branch on [facility] 12/01/20 at 0800, Until Discontinu ed, Routine gabapentin Yes 800mg 800 mg, Uni vers (NEURONTIN) 12-01 Oral, TID, it y of tablet 800 13:00: First dose [place] mg 00 on [facility] 12/01/20 at Branch 0800, Until Discontinu ed, Routine magnesium 2020- No 4g 4 g, IV [facility] ers sulfate in 12-01 Piggyback, it y of water 4 12:45: 14:07 ONCE, 1 [place] gram/50 mL 00 :00 dose, [facility] blanquita (8 %) IV 12/01/20 at [place] Piggyback 4 0745, g Routine insulin NPH Yes 40U 40 Units, U nivers and regular 12-01 Subcutaneo it y of human 70-30 12:30: us, [facility], [place] (HUMULIN 00 First dose Medic al 70-30 U-100 on Mon [place] INSULIN) 12/01/20 at 100 unit/mL 0730, (70-30) Until injection Discontinu 40 Units ed, Routine NaCl 0.9% 2020- No 1000mL at 20 [facility] ers (NS) IV 12-01 mL/hr, IV ity of infusion 05:00: 11:40 Infusion, [place] 1,000 mL 00 :32 CONTINUOUS Medic al , Starting [facility]12/01/20 at 0000, Until Mon12/01/20 at 0640, Routine&lt ;br>To be infused to keep line open
Sliding Yes Subcutaneo [facility] ers Scale 12-01 us, TID ity of Insulin - 02:00: MEALS+HS, [place] Lispro 00 First dose Medical (HumaLOG) + on Mon [place] [facility] 11/30/20 at Testing 2100, Until Discontinu ed, Routine mirtazapine Yes 15mg 15 mg, [facility] ers (REMERON) 12-01 Oral, QHS, ity of tablet 15 02:00: First dose [place] mg 00 on [facility] 11/30/20 at Branch 2100, Until Discontinu ed, Routine glucagon Yes 1mg 1 mg, Univers (GLUCAGEN 12-01 Intramuscu ity of DIAGNOSTIC 01:33: lar, PRN, [place] KIT) 41 Starting Medical injection 1 Mon 7/5/21 Br anch mg at 2032, Until Discontinu [...] of tablet 01:28: mouth [place] 04 daily. Medical Branch acetaminoph Yes 650mg 650 mg, Un cali en 12-01 Oral, ity of (TYLENOL) 01:27: Q6HPRN, [place] tablet 650 42 Starting Medic al mg Mon11/30/20 Branch at 2026, Until Discontinu ed, Routine, Pain (scale 1-3) FENTanyl PF Yes Slow IV Uni vers (SUBLIMAZE 05 Push, PRN, ity of (PF)) 22:46: Starting [place] injection 07 Mon11/30/20 Medi blanquita at 1746, Branch Until Discontinu ed, Routine clopidogreL 2020- No Oral, Univ ers (PLAVIX) 11-30 07-05 TITRATE - ity o f tablet 22:25: [...] 2020- No Slow IV Univer s 1,000 - 07-05 Push, ity of unit/mL 21:55: 21:55 TITRATE - [place] injection 00 :00 FOR Medical PROCEDURE Branch USE, 1 dose, Starting Mon11/30/20 at 1655, Until Mon11/30/20 at 1655, Routine FENTanyl PF 2020- No Slow IV Un cali (SUBLIMAZE 11-30 Push, ity of (PF)) 21:50: 21:50 TITRATE - [place] injection 13 :13 FOR Medical PROCEDURE Branch USE, 1 dose, Starting Mon11/30/20 at 1650, Until Mon11/30/20 at 1650, Routine midazolam 2020- No IV Push, Uni vers (VERSED) 11-30 TITRATE - ity o f injection 21:50: [...] Mon11/30/20 at 1553, Routine insulin 2020- No [id number] 10U 10 Units, Univers lispro 11-30 Subcutaneo ity of (human) 18:00: 18:15 us, ONCE, [place] (HumaLOG 00 :00 1 dose, Medical U-100) Mon11/30/20 Branch injection at 1300, 10 Units Routine ezetimibe 2021-0 Yes [id number] 10mg Take 1 U nivers 10 mg 6-18 tablet by ity of tablet 00:00: mouth [place] 00 daily. Medical Branch furosemide 2021-0 Yes [id number] 1 tablet [facility] 20 mg 6-18 02 as needed ity of tablet 00:00: for leg [place] swelling Medical Branch ezetimibe 1-0 Yes [id number] 10mg Take 1 U nivers 10 mg 6-18 tablet by ity of tablet 00:00: mouth [place] 00 daily. Medical Branch furosemide 1-0 Yes [id number] 1 tablet [facility] 20 mg 6-18 02 as needed ity of tablet 00:00: for leg swelling Medical Branch ezetimibe 1-0 Yes [id number] 10mg Take 1 U nivers 10 mg 6-18 tablet by ity of tablet 00:00: mouth [place] 00 daily. Medical Branch furosemide 1-0 Yes [id number] 1 tablet [facility] 20 mg 6-18 02 as needed ity of tablet 00:00: for leg swelling Medical Branch ezetimibe 1-0 Yes [id number] 10mg Take 1 U nivers 10 mg 6-18 tablet by ity of tablet 00:00: mouth [place] 00 daily. Medical Branch furosemide 1-0 Yes [id number] 1 tablet [facility] 20 mg 6-18 02 as needed ity of tablet 00:00: for leg swelling Medical Branch ezetimibe 2021-0 Yes [id number] 10mg Take 1 U nivers 10 mg 6-18 tablet by ity of tablet 00:00: mouth [place] 00 daily. Medical Branch furosemide 1-0 Yes [id number] 1 tablet [facility] 20 mg 6-18 02 as needed ity of tablet 00:00: for leg swelling Medical Branch ezetimibe 2021-0 Yes [id number] 10mg Take 1 U nivers 10 mg 6-18 tablet by ity of tablet 00:00: mouth [place] 00 daily. Medical Branch furosemide 2021-0 Yes [id number] 1 tablet [facility] 20 mg 6-18 02 as needed ity of tablet 00:00: for leg swelling Medical Branch ezetimibe 2021-0 Yes [id number] 10mg Take 1 U nivers 10 mg 6-18 tablet by ity of tablet 00:00: mouth [place] 00 daily. Medical Branch furosemide 2021-0 Yes [id number] 1 tablet [facility] 20 mg 6-18 02 as needed ity of tablet 00:00: for leg swelling Medical Branch ezetimibe 1-0 Yes [id number] 10mg Take 1 U nivers 10 mg 6-18 tablet by ity of tablet 00:00: mouth [place] 00 daily. Medical Branch furosemide 2021-0 Yes [id number] 1 tablet [facility] 20 mg 6-18 02 as needed ity of tablet 00:00: for leg swelling Medical Branch ezetimibe 1-0 Yes [id number] 10mg Take 1 U nivers 10 mg 6-18 tablet by ity of tablet 00:00: mouth [place] 00 daily. Medical Branch furosemide 1-0 Yes [id number] 1 tablet [facility] 20 mg 6-18 02 as needed ity of tablet 00:00: for leg swelling Medical Branch ezetimibe 1-0 Yes [id number] 10mg Take 1 U nivers 10 mg 6-18 tablet by ity of tablet 00:00: mouth [place] 00 daily. Medical Branch furosemide 1-0 Yes [id number] 1 tablet [facility] 20 mg 6-18 02 as needed ity of tablet 00:00: for leg swelling Medical Branch ezetimibe 1-0 Yes [id number] 10mg Take 1 U nivers 10 mg 6-18 tablet by ity of tablet 00:00: mouth [place] 00 daily. Medical Branch furosemide 2021-0 Yes [id number] 1 tablet [facility] 20 mg 6-18 02 as needed ity of tablet 00:00: for leg swelling Medical Branch ezetimibe 1-0 Yes [id number] 10mg Take 1 U nivers 10 mg 6-18 tablet by ity of tablet 00:00: mouth [place] 00 daily. Medical Branch furosemide 2021-0 Yes [id number] 1 tablet [facility] 20 mg 6-18 02 as needed ity of tablet 00:00: for leg swelling Medical Branch ezetimibe 2021-0 Yes [id number] 10mg Take 1 U nivers 10 mg 6-18 tablet by ity of tablet 00:00: mouth [place] 00 daily. Medical Branch furosemide 2021-0 Yes [id number] 1 tablet [facility] 20 mg 6-18 02 as needed ity of tablet 00:00: for leg [place] swelling Medical Branch ezetimibe 2021-0 Yes [id number] 10mg Take 1 U nivers 10 mg 6-18 tablet by ity of tablet 00:00: mouth [place] 00 daily. Medical Branch furosemide 2021-0 Yes [id number] 1 tablet [facility] 20 mg 6-18 02 as needed ity of tablet 00:00: for leg [place] swelling Medical Branch ezetimibe 2021-0 Yes [id number] 10mg Take 1 U nivers 10 mg 6-18 tablet by ity of tablet 00:00: mouth [place] 00 daily. Medical Branch furosemide 1-0 Yes [id number] 1 tablet [facility] 20 mg 6-18 02 as needed ity of tablet 00:00: for leg swelling Medical Branch ezetimibe 1-0 Yes [id number] 10mg Take 1 U nivers 10 mg 6-18 tablet by ity of tablet 00:00: mouth [place] 00 daily. Medical Branch furosemide 1-0 Yes [id number] 1 tablet [facility] 20 mg 6-18 02 as needed ity of tablet 00:00: for leg swelling Medical Branch ezetimibe 1-0 Yes [id number] 10mg Take 1 U nivers 10 mg 6-18 tablet by ity of tablet 00:00: mouth [place] 00 daily. Medical Branch furosemide 1-0 Yes [id number] 1 tablet [facility] 20 mg 6-18 02 as needed ity of tablet 00:00: for leg swelling Medical Branch ezetimibe 1-0 Yes [id number] 10mg Take 1 U nivers 10 mg 6-18 tablet by ity of tablet 00:00: mouth [place] 00 daily. Medical Branch furosemide 2021-0 Yes [id number] 1 tablet [facility] 20 mg 6-18 02 as needed ity of tablet 00:00: for leg [place] swelling Medical Branch ezetimibe 2021-0 Yes [id number] 10mg Take 1 U nivers 10 mg 6-18 tablet by ity of tablet 00:00: mouth [place] 00 daily. Medical Branch furosemide 2021-0 Yes [id number] 1 tablet [facility] 20 mg 6-18 02 as needed ity of tablet 00:00: for leg [place] swelling Medical Branch ezetimibe 2021-0 Yes [id number] 10mg Take 1 U nivers 10 mg 6-18 tablet by ity of tablet 00:00: mouth [place] 00 daily. Medical Branch furosemide Yes [id number] 1 tablet [facility] 20 mg 6-18 02 as needed ity of tablet 00:00: for leg [place] 00 swelling Medical Branch insulin NPH Yes [id number] 40U inject [facility] and regular 5-12 40-50 ity of human 70-30 00:00: Units [place] (NOVOLIN 00 under the Medica l 70/30 U-100 skin 2 Branch INSULIN) (two) 100 unit/mL times (70-30) daily injection before breakfast and dinner. FREESTYLE Yes [id number] 1{kit} 1 Kit [facility] RASHARD 2 5-12 every 14 ity of SENSOR Kit 00:00: (fourteen) [place] 00 days. Medical Branch insulin NPH Yes [id number] 40U inject [facility] and regular 5-12 40-50 ity of human 70-30 00:00: Units [place] (NOVOLIN 00 under the Medica l 70/30 U-100 skin 2 Branch INSULIN) (two) 100 unit/mL times (70-30) daily injection before breakfast and dinner. FREESTYLE Yes [id number] 1{kit} 1 Kit [facility] RASHARD 2 5-12 every 14 ity of SENSOR Kit 00:00: (fourteen) [place] 00 days. Medical Branch insulin NPH Yes [id number] 40U inject [facility] and regular 5-12 40-50 ity of human 70-30 00:00: Units [place] (NOVOLIN 00 under the Medica l 70/30 U-100 skin 2 Branch INSULIN) (two) 100 unit/mL times (70-30) daily injection before breakfast and dinner. FREESTYLE Yes [id number] 1{kit} 1 Kit [facility] RASHARD 2 5-12 every 14 ity of SENSOR Kit 00:00: (fourteen) [place] 00 days. Medical Branch insulin NPH Yes [id number] 40U inject [facility] and regular 5-12 40-50 ity of human 70-30 00:00: Units [place] (NOVOLIN 00 under the Medica l 70/30 U-100 skin 2 Branch INSULIN) (two) 100 unit/mL times (70-30) daily injection before breakfast and dinner. insulin NPH 0 Yes [id number] 40U inject [facility] and regular 5-12 40-50 ity of human 70-30 00:00: Units [place] (NOVOLIN 00 under the Medica l 70/30 U-100 skin 2 Branch INSULIN) (two) 100 unit/mL times (70-30) daily injection before breakfast and dinner. insulin NPH 0 Yes [id number] 40U inject [facility] and regular 5-12 40-50 ity of human 70-30 00:00: Units [place] (NOVOLIN 00 under the Medica l 70/30 U-100 skin 2 Branch INSULIN) (two) 100 unit/mL times (70-30) daily injection before breakfast and dinner. insulin NPH 0 Yes [id number] 40U inject Univers and regular 5-12 40-50 ity of human 70-30 00:00: Units [place] (NOVOLIN 00 under the Medica l 70/30 U-100 skin 2 Branch INSULIN) (two) 100 unit/mL times (70-30) daily injection before breakfast and dinner. insulin NPH 0 Yes [id number] 40U inject Univers and regular 5-12 40-50 ity of human 70-30 00:00: Units [place] (NOVOLIN 00 under the Medica l 70/30 U-100 skin 2 Branch INSULIN) (two) 100 unit/mL times (70-30) daily injection before breakfast and dinner. insulin NPH 0 Yes [id number] 40U inject Univers and regular 5-12 40-50 ity of human 70-30 00:00: Units [place] (NOVOLIN 00 under the Medica l 70/30 U-100 skin 2 Branch INSULIN) (two) 100 unit/mL times (70-30) daily injection before breakfast and dinner. insulin NPH 0 Yes [id number] 40U inject Univers and regular 5-12 40-50 ity of human 70-30 00:00: Units [place] (NOVOLIN 00 under the Medica l 70/30 U-100 skin 2 Branch INSULIN) (two) 100 unit/mL times (70-30) daily injection before breakfast and dinner. insulin NPH 0 Yes [id number] 40U inject Univers and regular 5-12 40-50 ity of human 70-30 00:00: Units [place] (NOVOLIN 00 under the Medica l 70/30 U-100 skin 2 Branch INSULIN) (two) 100 unit/mL times (70-30) daily injection before breakfast and dinner. insulin NPH Yes [id number] 40U inject Univers and regular 5-12 40-50 ity of human 70-30 00:00: Units [place] (NOVOLIN 00 under the Medica l 70/30 U-100 skin 2 Branch INSULIN) (two) 100 unit/mL times (70-30) daily injection before breakfast and dinner. insulin NPH Yes [id number] 40U inject Univers and regular 5-12 40-50 ity of human 70-30 00:00: Units [place] (NOVOLIN 00 under the Medica l 70/30 U-100 skin 2 Branch INSULIN) (two) 100 unit/mL times (70-30) daily injection before breakfast and dinner. insulin NPH Yes [id number] 40U inject Univers and regular 5-12 40-50 ity of human 70-30 00:00: Units [place] (NOVOLIN 00 under the Medica l 70/30 U-100 skin 2 Branch INSULIN) (two) 100 unit/mL times (70-30) daily injection before breakfast and dinner. insulin NPH Yes [id number] 40U inject Univers and regular 5-12 40-50 ity of human 70-30 00:00: Units [place] (NOVOLIN 00 under the Medica l 70/30 U-100 skin 2 Branch INSULIN) (two) 100 unit/mL times (70-30) daily injection before breakfast and dinner. insulin NPH Yes [id number] 40U inject Univers and regular 5-12 40-50 ity of human 70-30 00:00: Units [place] (NOVOLIN 00 under the Medica l 70/30 U-100 skin 2 Branch INSULIN) (two) 100 unit/mL times (70-30) daily injection before breakfast and dinner. insulin NPH Yes [id number] 40U inject Univers and regular 5-12 40-50 ity of human 70-30 00:00: Units [place] (NOVOLIN 00 under the Medica l 70/30 U-100 skin 2 Branch INSULIN) (two) 100 unit/mL times (70-30) daily injection before breakfast and dinner. insulin NPH 0 Yes [id number] 40U inject Univers and regular 5-12 40-50 ity of human 70-30 00:00: Units [place] (NOVOLIN 00 under the Medica l 70/30 U-100 skin 2 Branch INSULIN) (two) 100 unit/mL times (70-30) daily injection before breakfast and dinner. insulin NPH 0 Yes [id number] 40U inject Univers and regular 5-12 40-50 ity of human 70-30 00:00: Units [place] (NOVOLIN 00 under the Medica l 70/30 U-100 skin 2 Branch INSULIN) (two) 100 unit/mL times (70-30) daily injection before breakfast and dinner. insulin NPH 0 Yes [id number] 40U inject Univers and regular 5-12 40-50 ity of human 70-30 00:00: Units [place] (NOVOLIN 00 under the Medica l 70/30 U-100 skin 2 Branch INSULIN) (two) 100 unit/mL times (70-30) daily injection before breakfast and dinner. insulin NPH 0 Yes [id number] 40U inject Univers and regular 5-12 40-50 ity of human 70-30 00:00: Units [place] (NOVOLIN 00 under the Medica l 70/30 U-100 skin 2 Branch INSULIN) (two) 100 unit/mL times (70-30) daily injection before breakfast and dinner. insulin NPH 0 Yes [id number] 40U inject Univers and regular 5-12 40-50 ity of human 70-30 00:00: Units [place] (NOVOLIN 00 under the Medica l 70/30 U-100 skin 2 Branch INSULIN) (two) 100 unit/mL times (70-30) daily injection before breakfast and dinner. insulin NPH 0 Yes [id number] 40U inject [facility] and regular 5-12 40-50 ity of human 70-30 00:00: Units [place] (NOVOLIN 00 under the Medica l 70/30 U-100 skin 2 Branch INSULIN) (two) 100 unit/mL times (70-30) daily injection before breakfast and dinner. insulin NPH 0 Yes [id number] 40U inject [facility] and regular 5-12 40-50 ity of human 70-30 00:00: Units [place] (NOVOLIN 00 under the Medica l 70/30 U-100 skin 2 Branch INSULIN) (two) 100 unit/mL times (70-30) daily injection before breakfast and dinner. FREESTYLE 2020- No [id number] 1{kit} 1 Kit [facility] RASHARD 2 10-07-18 every 14 ity of SENSOR Kit 00:00: 00:00 (fourteen) [place] 00 :00 days. Medical Branch FREESTYLE 2020- No [id number] 1{kit} 1 Kit [facility] RASHARD 2 10-07-18 every 14 ity of SENSOR Kit 00:00: 00:00 (fourteen) 00 :00 days. Medical Branch mirtazapine Yes [id number] 15mg Take 1 [facility] 15 mg 5-06 tablet by ity of tablet 00:00: mouth at [place] [address] bedtime. Medical Branch atorvastati Yes [id number] 80mg Take 1 [facility] n 80 mg 5-06 tablet by ity of tablet 00:00: mouth at [place] [address] bedtime. Medical Branch glipiZIDE Yes [id number] 5mg Take 0.5 [facility] 10 mg 5-06 tablets by ity of tablet 00:00: mouth 2 (two) Medical times Branch daily before breakfast and dinner. mirtazapine Yes [id number] 15mg Take 1 [facility] 15 mg 5-06 tablet by ity of tablet 00:00: mouth at [place] [address] bedtime. Medical Branch atorvastati Yes [id number] 80mg Take 1 [facility] n 80 mg 5-06 tablet by ity of tablet 00:00: mouth at [place] [address] bedtime. Medical Branch glipiZIDE Yes [id number] 5mg Take 0.5 [facility] 10 mg 5-06 tablets by ity of tablet 00:00: mouth 2 00 (two) Medical times Branch daily before breakfast and dinner. mirtazapine Yes [id number] 15mg Take 1 [facility] 15 mg 5-06 tablet by ity of tablet 00:00: mouth at [place] [address] bedtime. Medical Branch atorvastati Yes [id number] 80mg Take 1 [facility] n 80 mg 5-06 tablet by ity of tablet 00:00: mouth at [place] 00 bedtime. Medical Branch mirtazapine 0 Yes [id number] 15mg Take 1 [facility] 15 mg 5-06 tablet by ity of tablet 00:00: mouth at [place] [address] bedtime. Medical Branch atorvastati 2020-0 Yes [id number] 80mg Take 1 [facility] n 80 mg 5-06 tablet by ity of tablet 00:00: mouth at [place] 00 bedtime. Medical Branch mirtazapine 0 Yes [id number] 15mg Take 1 [facility] 15 mg 5-06 tablet by ity of tablet 00:00: mouth at [place] 00 bedtime. Medical Branch atorvastati Yes [id number] 80mg Take 1 [facility] n 80 mg 5-06 tablet by ity of tablet 00:00: mouth at [place] 00 bedtime. Medical Branch mirtazapine Yes [id number] 15mg Take 1 [facility] 15 mg 5-06 tablet by ity of tablet 00:00: mouth at [place] [address] bedtime. Medical Branch atorvastati 0 Yes [id number] 80mg Take 1 [facility] n 80 mg 5-06 tablet by ity of tablet 00:00: mouth at [place] [address] bedtime. Medical Branch mirtazapine Yes [id number] 15mg Take 1 [facility] 15 mg 5-06 tablet by ity of tablet 00:00: mouth at [place] [address] bedtime. Medical Branch atorvastati 0 Yes [id number] 80mg Take 1 [facility] n 80 mg 5-06 tablet by ity of tablet 00:00: mouth at [place] [address] bedtime. Medical Branch mirtazapine 0 Yes [id number] 15mg Take 1 [facility] 15 mg 5-06 tablet by ity of tablet 00:00: mouth at [place] 00 bedtime. Medical Branch atorvastati 0 Yes [id number] 80mg Take 1 [facility] n 80 mg 5-06 tablet by ity of tablet 00:00: mouth at [place] 00 bedtime. Medical Branch mirtazapine 0 Yes [id number] 15mg Take 1 [facility] 15 mg 5-06 tablet by ity of tablet 00:00: mouth at [place] 00 bedtime. Medical Branch atorvastati 0 Yes [id number] 80mg Take 1 [facility] n 80 mg 5-06 tablet by ity of tablet 00:00: mouth at [place] [address] bedtime. Medical Branch mirtazapine 0 Yes [id number] 15mg Take 1 [facility] 15 mg 5-06 tablet by ity of tablet 00:00: mouth at [place] [address] bedtime. Medical Branch atorvastati 2020-0 Yes [id number] 80mg Take 1 Univers n 80 mg 5-06 tablet by ity of tablet 00:00: mouth at [place] [address] bedtime. Medical Branch mirtazapine 0 Yes [id number] 15mg Take 1 [facility] 15 mg 5-06 tablet by ity of tablet 00:00: mouth at [place] [address] bedtime. Medical Branch atorvastati 0 Yes [id number] 80mg Take 1 Univers n 80 mg 5-06 tablet by ity of tablet 00:00: mouth at [place] [address] bedtime. Medical Branch mirtazapine 2020-0 Yes [id number] 15mg Take 1 [facility] 15 mg 5-06 tablet by ity of tablet 00:00: mouth at [place] [address] bedtime. Medical Branch atorvastati 0 Yes [id number] 80mg Take 1 Univers n 80 mg 5-06 tablet by ity of tablet 00:00: mouth at [place] [address] bedtime. Medical Branch mirtazapine 0 Yes [id number] 15mg Take 1 [facility] 15 mg 5-06 tablet by ity of tablet 00:00: mouth at [place] [address] bedtime. Medical Branch atorvastati 0 Yes [id number] 80mg Take 1 Univers n 80 mg 5-06 tablet by ity of tablet 00:00: mouth at [place] [address] bedtime. Medical Branch mirtazapine 2020-0 Yes [id number] 15mg Take 1 [facility] 15 mg 5-06 tablet by ity of tablet 00:00: mouth at [place] [address] bedtime. Medical Branch atorvastati 0 Yes [id number] 80mg Take 1 Univers n 80 mg 5-06 tablet by ity of tablet 00:00: mouth at [place] [address] bedtime. Medical Branch mirtazapine 2020-0 Yes [id number] 15mg Take 1 [facility] 15 mg 5-06 tablet by ity of tablet 00:00: mouth at [place] [address] bedtime. Medical Branch atorvastati 0 Yes [id number] 80mg Take 1 Univers n 80 mg 5-06 tablet by ity of tablet 00:00: mouth at [place] 00 bedtime. Medical Branch mirtazapine 2020-0 Yes [id number] 15mg Take 1 [facility] 15 mg 5-06 tablet by ity of tablet 00:00: mouth at [place] [address] bedtime. Medical Branch atorvastati 2020-0 Yes [id number] 80mg Take 1 Univers n 80 mg 5-06 tablet by ity of tablet 00:00: mouth at [place] 00 bedtime. Medical Branch mirtazapine 0 Yes [id number] 15mg Take 1 [facility] 15 mg 5-06 tablet by ity of tablet 00:00: mouth at [place] [address] bedtime. Medical Branch atorvastati 0 Yes [id number] 80mg Take 1 Univers n 80 mg 5-06 tablet by ity of tablet 00:00: mouth at [place] [address] bedtime. Medical Branch mirtazapine 0 Yes [id number] 15mg Take 1 [facility] 15 mg 5-06 tablet by ity of tablet 00:00: mouth at [place] [address] bedtime. Medical Branch atorvastati 0 Yes [id number] 80mg Take 1 Univers n 80 mg 5-06 tablet by ity of tablet 00:00: mouth at [place] [address] bedtime. Medical Branch mirtazapine 0 Yes [id number] 15mg Take 1 [facility] 15 mg 5-06 tablet by ity of tablet 00:00: mouth at [place] [address] bedtime. Medical Branch atorvastati 0 Yes [id number] 80mg Take 1 Univers n 80 mg 5-06 tablet by ity of tablet 00:00: mouth at [place] [address] bedtime. Medical Branch mirtazapine 2020-0 Yes [id number] 15mg Take 1 [facility] 15 mg 5-06 tablet by ity of tablet 00:00: mouth at [place] [address] bedtime. Medical Branch atorvastati 0 Yes [id number] 80mg Take 1 Univers n 80 mg 5-06 tablet by ity of tablet 00:00: mouth at [place] [address] bedtime. Medical Branch mirtazapine 2020-0 Yes [id number] 15mg Take 1 [facility] 15 mg 5-06 tablet by ity of tablet 00:00: mouth at [place] [address] bedtime. Medical Branch atorvastati 0 Yes [id number] 80mg Take 1 [facility] n 80 mg 5-06 tablet by ity of tablet 00:00: mouth at [place] [address] bedtime. Medical Branch mirtazapine 0 Yes [id number] 15mg Take 1 [facility] 15 mg 5-06 tablet by ity of tablet 00:00: mouth at [place] [address] bedtime. Medical Branch mirtazapine 0 Yes [id number] 15mg Take 1 [facility] 15 mg 5-06 tablet by ity of tablet 00:00: mouth at [place] [address] bedtime. Medical Branch atorvastati Yes [id number] 80mg Take 1 [facility] n 80 mg 5-06 tablet by ity of tablet 00:00: mouth at [place] [address] bedtime. Medical Branch atorvastati Yes [id number] 80mg Take 1 [facility] n 80 mg 5-06 tablet by ity of tablet 00:00: mouth at [place] [address] bedtime. Medical Branch mirtazapine Yes [id number] 15mg Take 1 [facility] 15 mg 5-06 tablet by ity of tablet 00:00: mouth at [place] [address] bedtime. Medical Branch atorvastati Yes [id number] 80mg Take 1 [facility] n 80 mg 5-06 tablet by ity of tablet 00:00: mouth at [place] [address] bedtime. Medical Branch mirtazapine Yes [id number] 15mg Take 1 [facility] 15 mg 5-06 tablet by ity of tablet 00:00: mouth at [place] [address] bedtime. Medical Branch atorvastati Yes [id number] 80mg Take 1 [facility] n 80 mg 5-06 tablet by ity of tablet 00:00: mouth at [place] [address] bedtime. Medical Branch mirtazapine Yes [id number] 15mg Take 1 [facility] 15 mg 5-06 tablet by ity of tablet 00:00: mouth at [place] [address] bedtime. Medical Branch atorvastati 0 Yes [id number] 80mg Take 1 [facility] n 80 mg 5-06 tablet by ity of tablet 00:00: mouth at [place] [address] bedtime. Medical Branch glipiZIDE 0 Yes Type 2 5mg Take 0.5 [place] [...] [place] 00 involving bed[place]. 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 [facility] [place] coronary artery of [place] heart without angina pectoris glipiZIDE 2020- No [id number] 5mg Take 0.5 [facility] 10 mg 5-06 05-12 tablets by ity of tablet 00:00: 00:00 mouth 2 [place] 00 :00 (two) Medical times Branch daily before breakfast and dinner. glipiZIDE 2020- No [id number] 5mg Take 0.5 [facility] 10 mg 5-06 05-12 tablets by ity of tablet 00:00: 00:00 mouth 2 [place] 00 :00 (two) Medical times Branch daily before breakfast and dinner. fluconazole 2020- No [id number] 150mg Take 1 [facility] 150 mg 4-14 04-17 tablet by ity of tablet 00:00: 04:59 mouth [place] 00 :00 every 72 Medical (seventy-t Branch wo) hours for 2 days. fluconazole 2020- No [id number] 150mg Take 1 [facility] 150 mg 4-14 -17 tablet by ity of tablet 00:00: 04:59 mouth [place] 00 :00 every 72 Medical (seventy-t Branch wo) hours for 2 days. fluconazole 2020- No [id number] 150mg Take 1 [facility] 150 mg 4-14 -17 tablet by ity of tablet 00:00: 04:59 mouth [place] 00 :00 every 72 Medical (seventy-t Branch wo) hours for 2 days. insulin NPH Yes 60U 60 Units, U nivers and regular 4-13 Subcutaneo it y of human 70-30 12:30: us, BIDAC, [place] (HUMULIN 00 First dose Medic al 70-30 U-100 (after Branch INSULIN) last 100 unit/mL modificati (70-30) on) on Tue injection 09/08/20 at 60 Units 0730, Until Discontinu ed, Routine ezetimibe 2020- No [id number] 10mg Take 1 [facility] 10 mg 4-13 05-14 tablet by ity of tablet 00:00: 04:59 mouth [place] 00 :00 daily for Medical 30 days. Branch insulin NPH 2020- No [id number] 60U inject 60 Univers and regular 4-13 05-14 Units ity of human 70-30 00:00: 04:59 under the [place] (NOVOLIN 00 :00 skin 2 Medical 70/30 U-100 (two) Branch INSULIN) times 100 unit/mL daily (70-30) before injection breakfast and dinner for 30 days. ezetimibe 2020- No [id number] 10mg Take 1 [facility] 10 mg 4-13 05-14 tablet by ity of tablet 00:00: 04:59 mouth [place] 00 :00 daily for Medical 30 days. Branch insulin NPH 2020- No [id number] 60U inject 60 Univers and regular 4-13 05-14 Units ity of human 70-30 00:00: 04:59 under the [place] (NOVOLIN 00 :00 skin 2 Medical 70/30 U-100 (two) Branch INSULIN) times 100 unit/mL daily (70-30) before injection breakfast and dinner for 30 days. ezetimibe 2020- No [id number] 10mg Take 1 [facility] 10 mg 4-13 05-14 tablet by ity of tablet 00:00: 04:59 mouth [place] 00 :00 daily for Medical 30 days. Branch insulin NPH 2020- No [id number] 60U inject 60 Univers and regular 4-13 05-14 Units ity of human 70-30 00:00: 04:59 under the [place] (NOVOLIN 00 :00 skin 2 Medical 70/30 U-100 (two) Branch INSULIN) times 100 unit/mL daily (70-30) before injection breakfast and dinner for 30 days. ezetimibe 2020- No [id number] 10mg Take 1 [facility] 10 mg 4-13 05-14 tablet by ity of tablet 00:00: 04:59 mouth [place] 00 :00 daily for Medical 30 days. Branch insulin NPH 2020- No [id number] 60U inject 60 Univers and regular 4-13 05-14 Units ity of human 70-30 00:00: 04:59 under the [place] (NOVOLIN 00 :00 skin 2 Medical 70/30 U-100 (two) Branch INSULIN) times 100 unit/mL daily (70-30) before injection breakfast and dinner for 30 days. ezetimibe 2020- No [id number] 10mg Take 1 [facility] 10 mg 4-13 05-14 tablet by ity of tablet 00:00: 04:59 mouth [place] 00 :00 daily for Medical 30 days. Branch insulin NPH 2020- No [id number] 60U inject 60 Univers and regular 4-13 05-14 Units ity of human 70-30 00:00: 04:59 under the [place] (NOVOLIN 00 :00 skin 2 Medical 70/30 U-100 (two) Branch INSULIN) times 100 unit/mL daily (70-30) before injection breakfast and dinner for 30 days. ezetimibe 2020- No [id number] 10mg Take 1 [facility] 10 mg 4-13 05-14 tablet by ity of tablet 00:00: 04:59 mouth [place] 00 :00 daily for Medical 30 days. Branch insulin NPH 2020- No [id number] 60U inject 60 Univers and regular 4-13 05-14 Units ity of human 70-30 00:00: 04:59 under the [place] (NOVOLIN 00 :00 skin 2 Medical 70/30 U-100 (two) Branch INSULIN) times 100 unit/mL daily (70-30) before injection breakfast and dinner for 30 days. ezetimibe 2020- No [id number] 10mg Take 1 [facility] 10 mg 4-13 05-14 tablet by ity of tablet 00:00: 04:59 mouth [place] 00 :00 daily for Medical 30 days. Branch insulin NPH 2020- No [id number] 60U inject 60 Univers and regular 4-13 05-14 Units ity of human 70-30 00:00: 04:59 under the [place] (NOVOLIN 00 :00 skin 2 Medical 70/30 U-100 (two) Branch INSULIN) times 100 unit/mL daily (70-30) before injection breakfast and dinner for 30 days. ezetimibe 2020- No [id number] 10mg Take 1 [facility] 10 mg 4-13 05-14 tablet by ity of tablet 00:00: 04:59 mouth [place] 00 :00 daily for Medical 30 days. Branch ezetimibe 2020- No [id number] 10mg Take 1 [facility] 10 mg 4-13 [...] human 70-30 00:00: 04:59 diabetes under the [place] (NOVOLIN 00 :00 mellitus skin 2 Medic al 70/30 U-100 with (two) Branch INSULIN) hyperglycem times 100 unit/mL ia daily (70-30) before injection breakfast and dinner for 30 days. ezetimibe 2020- No Uncontrolle 10mg Take 1 [facility] 10 mg 4- 05-14 d type 2 tablet by ity [...] for 30 days. insulin NPH 2020- No [id number] 60U inject 60 Univers and regular 4-13 05-12 Units ity of human 70-30 00:00: 00:00 under the [place] (NOVOLIN 00 :00 skin 2 Medical 70/30 U-100 (two) Branch INSULIN) times 100 unit/mL daily (70-30) before injection breakfast and dinner for 30 days. insulin NPH 2020- No [id number] 60U inject 60 Univers and regular 4-13 05-12 Units ity of human 70-30 00:00: 00:00 under the [place] (NOVOLIN 00 :00 skin 2 Medical 70/30 U-100 (two) Branch INSULIN) times 100 unit/mL daily (70-30) before injection breakfast and dinner for 30 days. aspirin 81 2020- Yes 81mg Take 1 Unive rs mg chewable 4-12 tablet by ity of tablet 23:21: mouth [place] 25 daily. [facility] Branch aspirin 81 2020-0 Yes 81mg Take 1 Unive rs mg chewable 4-12 tablet by ity of tablet 23:21: mouth [place] 25 daily. [facility] Branch aspirin 81 2020-0 Yes 81mg Take 1 Unive rs mg chewable 4-12 tablet by ity of tablet 23:21: mouth [place] 25 daily. [facility] Branch aspirin 81 2020-0 Yes 81mg Take 1 Unive rs mg chewable 4-12 tablet by ity of tablet 23:21: mouth [place] 25 daily. [facility] Branch aspirin 81 2020-0 Yes 81mg Take 1 Unive rs mg chewable 4-12 tablet by ity of tablet 23:21: mouth [place] 25 daily. [facility] Branch aspirin 81 2021-0 Yes 81mg Take 1 Unive rs mg [...] [place] 25 daily. Medical Branch insulin NPH 2020-0 2020- No [id number] 90U inject 90 Univers and regular 4-12 05-13 Units ity of human 70-30 00:00: 04:59 under the [place] (NOVOLIN 00 :00 skin 2 Medical 70/30 U-100 (two) Branch INSULIN) times 100 unit/mL daily (70-30) before injection breakfast and dinner for 30 days. metoprolol 2020- No [id number] 50mg Take 0.5 Univers succinate 4-12 05-13 tablets by ity of XL 100 mg 00:00: 04:59 mouth [place] 24 hr 00 :00 daily for Medical tablet 30 days. Branch glipiZIDE 2020- No [id number] 10mg Take 1 [facility] 10 mg 4-12 05-13 tablet by ity of tablet 00:00: 04:59 mouth 2 [place] 00 :00 (two) Medical times Branch daily before breakfast and dinner for 30 days. SITagliptin 2020- No [id number] 100mg Take 1 [facility] 100 mg 4-12 05-13 tablet by ity of tablet 00:00: 04:59 mouth [place] 00 :00 evening Medical meal for Branch 30 days. insulin NPH 2020- No [id number] 90U inject 90 Univers and regular 4-12 05-13 Units ity of human 70-30 00:00: 04:59 under the [place] (NOVOLIN 00 :00 skin 2 Medical 70/30 U-100 (two) Branch INSULIN) times 100 unit/mL daily (70-30) before injection breakfast and dinner for 30 days. metoprolol 2020- No [id number] 50mg Take 0.5 Univers succinate 4-12 05-13 tablets by ity of XL 100 mg 00:00: 04:59 mouth [place] 24 hr 00 :00 daily for Medical tablet 30 days. Branch glipiZIDE 2020- No [id number] 10mg Take 1 [facility] 10 mg 4-12 05-13 tablet by ity of tablet 00:00: 04:59 mouth 2 [place] 00 :00 (two) Medical times Branch daily before breakfast and dinner for 30 days. SITagliptin 2020- No [id number] 100mg Take 1 [facility] 100 mg 4-12 05-13 tablet by ity of tablet 00:00: 04:59 mouth [place] 00 :00 evening Medical meal for Branch 30 days. insulin NPH 2020- No [id number] 90U inject 90 Univers and regular 4-12 05-13 Units ity of human 70-30 00:00: 04:59 under the [place] (NOVOLIN 00 :00 skin 2 Medical 70/30 U-100 (two) Branch INSULIN) times 100 unit/mL daily (70-30) before injection breakfast and dinner for 30 days. metoprolol 2020- No [id number] 50mg Take 0.5 Univers succinate 4- 05-13 tablets by ity of XL 100 mg 00:00: 04:59 mouth [place] 24 hr 00 :00 daily for Medical tablet 30 days. Branch glipiZIDE No [id number] 10mg Take 1 [facility] 10 mg 4-05 02-13 tablet by ity of tablet 00:00: 04:59 mouth 2 [place] 00 :00 (two) Medical times [place] daily before breakfast and dinner for 30 days. SITagliptin 2020- No [id number] 100mg Take 1 [facility] 100 mg -05 02-13 tablet by ity of tablet 00:00: 04:59 mouth [place] 00 :00 evening Medical meal for Branch 30 days. insulin NPH 2020- No [id number] 90U inject 90 Univers and regular 4-12 05-13 Units ity of human 70-30 00:00: 04:59 under the [place] (NOVOLIN 00 :00 skin 2 Medical 70/30 U-100 (two) Branch INSULIN) times 100 unit/mL daily (70-30) before injection breakfast and dinner for 30 days. metoprolol No [id number] 50mg Take 0.5 Univers succinate 4- 05-13 tablets by ity of XL 100 mg 00:00: 04:59 mouth [place] 24 hr 00 :00 daily for Medical tablet 30 days. Branch glipiZIDE No [id number] 10mg Take 1 [facility] 10 mg 4- 05-13 tablet by ity of tablet 00:00: 04:59 mouth 2 [place] 00 :00 (two) Medical times [place] daily before breakfast and dinner for 30 days. SITagliptin No [id number] 100mg Take 1 Univers 100 mg - 05-13 tablet by ity of tablet 00:00: 04:59 mouth [place] 00 :00 evening Medical meal for Branch 30 days. insulin NPH 2020- No [id number] 90U inject 90 Univers and regular 4- 05-13 Units ity of human 70-30 00:00: 04:59 under the [place] (NOVOLIN 00 :00 skin 2 Medical 70/30 U-100 (two) Branch INSULIN) times 100 unit/mL daily (70-30) before injection breakfast and dinner for 30 days. metoprolol 2020- No [id number] 50mg Take 0.5 Univers succinate 09-07-13 tablets by ity of XL 100 mg 00:00: 04:59 mouth [place] 24 hr 00 :00 daily for Medical tablet 30 days. [place] glipiZIDE 2020- No [id number] 10mg Take 1 Univers 10 mg 09-07-13 tablet by ity of tablet 00:00: 04:59 mouth 2 [place] 00 :00 (two) Medical times Branch daily before breakfast and dinner for 30 days. SITagliptin 2020- No [id number] 100mg Take 1 Univers 100 mg 09-07-13 tablet by ity of tablet 00:00: 04:59 mouth [place] 00 :00 evening Medical meal for Branch 30 days. metoprolol 2020- No [id number] 50mg Take 0.5 Univers succinate 09-07 05-13 tablets by ity of XL 100 mg 00:00: 04:59 mouth [place] 24 hr 00 :00 daily for Medical tablet 30 days. Branch SITagliptin 2020- No [id number] 100mg Take 1 Univers 100 mg 4- 05-13 tablet by ity of tablet 00:00: 04:59 mouth [place] 00 :00 evening Medical meal for Branch 30 days. metoprolol 2020- No [id number] 50mg Take 0.5 Univers succinate 4- 05-13 tablets by ity of XL 100 mg 00:00: 04:59 mouth [place] 24 hr 00 :00 daily for Medical tablet 30 days. Branch SITagliptin 2020- No [id number] 100mg Take 1 [facility] 100 mg 09-07-13 tablet by ity of tablet 00:00: 04:59 mouth [place] 00 :00 evening Medical meal for Branch 30 days. metoprolol 2020- No [id number] 50mg Take 0.5 Univers succinate 09-07-13 tablets by ity of XL 100 mg 00:00: 04:59 mouth [place] 24 hr 00 :00 daily for Medical tablet 30 days. Branch metoprolol 2020- No [id number] 50mg Take 0.5 Univers succinate 09-07- tablets by ity of XL 100 mg 00:00: 04:59 mouth [place] 24 hr 00 :00 daily for Medical tablet 30 days. Branch metoprolol 2020- No Coronary 50mg Take 0.5 Univers succinate 09-07- artery tablets by i ty of XL 100 mg 00:00: 04:59 disease mouth [place] 24 hr 00 :00 involving daily for Medi [place] tablet [place] 30 days. Branch coronary artery of [place] heart without angina pectoris SITagliptin No Uncontrolle 100mg Take 1 Univers 100 mg 09-07- d type 2 tablet by ity of tablet 00:00: 04:59 diabetes mouth with [place] 00 :00 mellitus evening Medical with meal for Branch hyperglycem 30 days. ia metoprolol No Coronary 50mg Take 0.5 Univers succinate 09-07 artery tablets by i ty of XL 100 mg 00:00: 04:59 disease mouth [place] 24 hr 00 :00 involving daily for Medi [place] tablet [place] 30 days. Branch coronary artery of [place] heart without angina pectoris SITagliptin 2020- No Uncontrolle 100mg Take 1 Univers 100 mg 09-07-13 d type 2 tablet by ity of tablet 00:00: 04:59 diabetes mouth with [place] 00 :00 mellitus evening Medical with meal for Branch hyperglycem 30 days. ia SITagliptin 2020- No [id number] 100mg Take 1 [facility] 100 mg 09-07-12 tablet by ity of tablet 00:00: 00:00 mouth [place] 00 :00 evening Medical meal for Branch 30 days. SITagliptin 2020- No [id number] 100mg Take 1 [facility] 100 mg 4-12 05-12 tablet by ity of tablet 00:00: 00:00 mouth [place] 00 :00 evening Medical meal for Branch 30 days. insulin NPH 2020- No [id number] 90U inject 90 Univers and regular 4-12 05-06 Units ity of human 70-30 00:00: 00:00 under the [place] (NOVOLIN 00 :00 skin 2 Medical 70/30 U-100 (two) Branch INSULIN) times 100 unit/mL daily (70-30) before injection breakfast and dinner for 30 days. glipiZIDE 2020- No [id number] 10mg Take 1 Univers 10 mg 4-12 05-06 tablet by ity of tablet 00:00: 00:00 mouth 2 [place] 00 :00 (two) Medical times Branch daily before breakfast and dinner for 30 days. insulin NPH 2020- No [id number] 90U inject 90 Univers and regular 4-12 05-06 Units ity of human 70-30 00:00: 00:00 under the [place] (NOVOLIN 00 :00 skin 2 Medical 70/30 U-100 (two) Branch INSULIN) times 100 unit/mL daily (70-30) before injection breakfast and dinner for 30 days. glipiZIDE 2020- No [id number] 10mg Take 1 Univers 10 mg 4-12 05-06 tablet by ity of tablet 00:00: 00:00 mouth 2 [place] 00 :00 (two) Medical times Branch daily before breakfast and dinner for 30 days. insulin NPH 2020- No Uncontrolle 90U inject 90 Univers and regular 4-12 05-06 d type 2 Units it y of human 70-30 00:00: 00:00 diabetes under the [place] (NOVOLIN 00 :00 mellitus skin 2 Medic al 70/30 U-100 with (two) Branch INSULIN) hyperglycem times 100 unit/mL ia daily (70-30) before injection breakfast and dinner for 30 days. glipiZIDE 2020- No Uncontrolle 10mg Take 1 Univers 10 mg 4-12 05-06 d type 2 tablet by ity of tablet 00:00: 00:00 diabetes mouth 2 [place] 00 :00 mellitus (two) Medical with times Branch hyperglycem daily ia before breakfast and dinner for 30 days. insulin NPH 2020- No Uncontrolle 90U inject 90 Univers and regular 09-07-06 d type 2 Units it y of [...] dinner for 30 days. lactobacill 2020- No [id number] 1{tbl} Take 1 Univers us -05 01-23 tablet by ity of acidophilus 00:00: 04:59 mouth 2 [place] 25 million 00 :00 (two) Medical cell -100 times Branch mg captab daily for 10 days. lactobacill 2020- No [id number] 1{tbl} Take 1 Univers us -05 01-23 tablet by ity of acidophilus 00:00: 04:59 mouth 2 [place] 25 million 00 :00 (two) Medical cell -100 times Branch mg captab daily for 10 days. lactobacill 2020- No [id number] 1{tbl} Take 1 Univers us -05 01-23 tablet by ity of acidophilus 00:00: 04:59 mouth 2 [place] 25 million 00 :00 (two) Medical cell -100 times Branch mg captab daily for 10 days. metroNIDAZO 2020- No [id number] 500mg Take 1 Univers LE 500 mg 09-07 tablet by ity of tablet 00:00: 04:59 mouth 2 [place] 00 :00 (two) Medical times Branch daily for 6 days. ciprofloxac 2020- No [id number] 750mg Take 1 Univers in HCl 750 09-07 tablet by ity of mg tablet 00:00: 04:59 mouth [place] 00 :00 every 12 Medical (twelve) Branch hours for 6 days. metroNIDAZO 2020- No [id number] 500mg Take 1 Univers LE 500 mg 09-07 tablet by ity of tablet 00:00: 04:59 mouth 2 [place] 00 :00 (two) Medical times Branch daily for 6 days. ciprofloxac 2020- No [id number] 750mg Take 1 Univers in HCl 750 09-07 tablet by ity of mg tablet 00:00: 04:59 mouth [place] 00 :00 every 12 Medical (twelve) Branch hours for 6 days. metroNIDAZO 2020- No [id number] 500mg Take 1 Univers LE 500 mg 09-07 tablet by ity of tablet 00:00: 04:59 mouth 2 [place] 00 :00 (two) Medical times Branch daily for 6 days. ciprofloxac 2020- No [id number] 750mg Take 1 Univers in HCl 750 09-07 tablet by ity of mg tablet 00:00: 04:59 mouth [place] 00 :00 every 12 Medical (twelve) Branch hours for 6 days. cosyntropin 2020- No 250ug 250 mcg, Univers (CORTROSYN) 09-06 Slow IV ity of injection 22:45: 22:06 Push, [place] 250 mcg 00 :00 ONCE, 1 Medical dose, [facility] 09/06/20 at 1745, Routine metoprolol Yes 50mg 50 mg, Unive rs succinate 09-06 Oral, ity of XL (TOPROL 14:00: DAILY, [place] XL) tablet 00 First dose Med ical 50 mg (after Branch last modificati on) on [facility] 09/06/20 at 0900, Until Discontinu ed, Routine ezetimibe Yes 10mg 10 mg, Univer s (ZETIA) 11 Oral, ity of tablet 10 14:00: DAILY, [place] mg 00 First dose Medical on [facility] 09/06/20 at 0900, Until Discontinu ed, Routine fluconazole Yes 150mg 150 mg, Un cali (DIFLUCAN) 09-06 Oral, ity of tablet 150 14:00: Q72H, [place] mg 00 First dose Medical on [facility] 09/06/20 at 0900, Until Discontinu ed, TRANG
Re ason for Anti-Infec tive: Empiric Therapy for Suspected Infection< br>Empiric Therapy Site: Pelvic<br& gt;Duratio n of therapy: 72 hours NaCl 0.9% 2020- No 500mL at 999 Univ ers (NS) bolus 09-06 mL/hr, 500 it y of infusion 06:15: 05:09 mL, IV [place] 500 mL 00 :00 Piggyback, Medical ONCE, 1 Branch dose, [facility] 09/06/20 at 0115, STAT magnesium Yes 400mg 400 mg, Univ ers oxide 09-06 Oral, BID, ity of (MAG-OX 05:15: First dose [place] 400) tablet 00 on [facility] Medica l 400 mg 09/06/20 at Branch 0015, Until Discontinu ed, Routine magnesium 2020- No 4g 4 g, IV Univ ers sulfate in 09-06 Piggyback, it y of water 4 01:15: 01:12 ONCE, 1 [place] gram/50 mL 00 :00 dose, Sat Medi blanquita (8 %) IV 09/05/20 at [facility] h Piggyback 4 2015, g Routine KCL Yes 40meq 40 mEq, Univers (KLOR-CON 09-06 Oral, BID, ity of M20) tablet 01:00: First dose [place] 40 mEq 00 (after Medical last Branch modificati on) on [facility] 09/05/20 at 2000, Until Discontinu ed, Routine NaCl 0.9% 2020- No IV Univers (NS) 1000 09-06 Infusion, ity of mL + KCL 20 00:45: 16:58 at 125 [place] mEq 00 :02 mL/hr, Medical CONTINUOUS Branch , Starting 09/05/20 at 1945, Until [place] 09/06/20 at 1158, Routine lactated 2020- No 1000mL at 999 Univ ers ringers IV 09-05 04-10 mL/hr, ity of infusion 23:30: 22:28 1,000 mL, [place] 1,000 mL 00 :00 Intravenou Medic al s, ONCE, 1 Branch dose, 09/05/20 at 1830, Routine isosorbide 2020- No 30mg 30 mg, Univ ers mononitrate 09-05-10 Oral, ity of (IMDUR) 24 17:00: 17:00 ONCE, 1 [place] hr tablet 00 :00 dose, Sat Medic al 30 mg 09/05/20 at Branch 1200, Routine cefTRIAXone No 1000mg 1,000 mg, Univers (ROCEPHIN) 09-05 IV ity of 1,000 mg in 16:00: 15:59 Piggyback, [place] NaCl 0.9% 00 :00 Q12H ABX, Medic al (NS) 50 mL 14 doses, Bran ch MINI-BAG First dose (after last reorder) on [facility] 09/05/20 at 1100, Last dose on Mon09/11/20 at 2300, 50 mL
Reas on for Anti-Infec tive: Documented Infection< br>Documen anthony Infection Site: Urine
D uration of Therapy: Other (see Comments) enoxaparin Yes 40mg 40 mg, Unive rs (LOVENOX) 09-05 Subcutaneo ity of injection 14:00: [place], DAILY, [place] 40 mg 00 First dose Medical on [facility] 09/05/20 at 0900, Until Discontinu ed, Routine pantoprazol Yes 40mg 40 mg, Univ ers e 4-10 Oral, ity of (PROTONIX) 14:00: DAILY, [place] EC tablet 00 First dose Medi blanquita 40 mg on [facility] Branch 09/05/20 at 0900, Until Discontinu ed, Routine clopidogreL Yes 75mg 75 mg, Univ ers (PLAVIX) -10 Oral, ity of tablet 75 14:00: DAILY, [place] mg 00 First dose Medical on [facility] Branch 09/05/20 at 0900, Until Discontinu ed, Routine metoprolol No 100mg 100 mg, Un cali succinate 09-0511 Oral, ity of XL (TOPROL 14:00: 11:17 DAILY, [place] XL) tablet 00 :33 First dose Med ical 100 mg on [facility] 09/05/20 at 0900, Until Discontinu ed, Routine isosorbide No 30mg 30 mg, Univ ers mononitrate 09-0510 Oral, ity of (IMDUR) 24 14:00: 15:58 DAILY, [place] hr tablet 00 :51 First dose Medi blan[place] 30 mg on Sat Branch 09/05/20 at 0900, Until Discontinu ed, Routine furosemide No 20mg 20 mg, Univ ers (LASIX) 09-05-10 Oral, ity of tablet 20 14:00: 22:14 DAILY, [place] mg 00 :49 First dose Medical on [facility] Branch 09/05/20 at 0900, Until Discontinu ed, Routine docusate Yes 100mg 100 mg, Unive rs (COLACE) 410 Oral, BID, ity o f capsule 100 13:00: First dose [place] mg 00 on [facility] Medical 09/05/20 at Branch 0800, Until Discontinu ed, Routine metFORMIN Yes 1000mg 1,000 mg, U nivers (GLUCOPHAGE 10 Oral, BID ity of ) tablet 13:00: MEALS, [place] 1,000 mg 00 First dose Medic al on [facility] Branch 09/05/20 at 0800, Until Discontinu ed, Routine glipiZIDE Yes 10mg 10 mg, Univer s (GLUCOTROL) -10 Oral, ity of tablet 10 12:30: BIDAC, [place] mg 00 First dose Medical on [facility] Branch 09/05/20 at 0730, Until Discontinu ed, Routine insulin NPH 2020- No 90U 90 Units, Univers and regular 09-05 Subcutaneo i ty of human 70-30 12:30: 21:48 us, BIDAC, [place] (HUMULIN 00 :25 First dose Medic al 70-30 U-100 (after Branch INSULIN) last 100 unit/mL modificati (70-30) on) on Sat injection 09/05/20 at 90 Units 0730, Until Discontinu ed, Routine NaCl 0.9% 2020- No IV Univers (NS) 1000 09-05 Infusion, ity of mL + KCL 20 [...] Branch 09/05/20 at 0530, TRANG NaCl 0.9% 2020-0 2020- No 500mL at 999 [facility] ers (NS) bolus 4-10 04-10 mL/hr, 500 it y of infusion 10:30: 10:00 mL, IV [place] 500 mL 00 :00 Piggyback, Medical ONCE, 1 Branch dose, 09/05/20 at 0530, TRANG SITagliptin 0 Yes 100mg 100 mg, Un cali (JANUVIA) 4-10 Oral, ity of tablet 100 09:45: DINNER, [place] mg 00 First dose Medical (after Branch last modificati on) on 09/05/20 at 0445, Until Discontinu ed, TRANG acetaminoph 2020-0 Yes 2{tbl} 2 tablet, Univers en-codeine 4-10 Oral, ity of (TYLENOL 09:31: TIDPRN, [place] #3) 300-30 12 Starting Medic al mg tablet 2 [facility] [facility] tablet 09/05/20 at 0431, Until Discontinu ed, Routine, Pain (scale 4-6) Sliding 2020-0 Yes Subcutaneo [facility] ers Scale 4-10 us, TID ity of Insulin - 09:30: MEALS+HS, Raffy as Lispro 00 First dose Medical (HumaLOG) + on [facility] Branch Fsbg 09/05/20 at Testing 0430, Until Discontinu ed, Routine gabapentin 2020-0 Yes 800mg 800 mg, Uni vers (NEURONTIN) 4-10 Oral, TID, it y of tablet 800 09:30: First dose [place] mg 00 on [facility] Medical 09/05/20 at Branch 0430, Until Discontinu ed, Routine atorvastati 2020-0 Yes 80mg 80 mg, Univ ers n (LIPITOR) 4-10 Oral, QHS, it y of tablet 80 09:30: First dose [place] mg 00 on [facility] Medical 09/05/20 at Branch 0430, Until Discontinu ed, Routine aspirin 0 Yes 81mg 81 mg, Univers chewable 4-10 Oral, QAM ity of tablet 81 09:30: WITH [place] mg 00 BREAKFAST, Medical First dose Branch on 09/05/20 at 0430, Until Discontinu ed, Routine lactobacill 0 Yes 1{tbl} 1 tablet, Univers us 4-10 Oral, BID, ity of acidophilus 09:30: First dose [place] (ACIDOPHILL 00 on Sat Medica l US) 25 09/05/20 at Branch million 0430, cell -100 Until mg captab 1 Discontinu tablet ed, Routine metroNIDAZO 2020- No 500mg 500 mg, U vern HULL (FLAGYL) 410 04-17 Oral, BID, i ty of tablet [...] IV Push, ity of (PF)) 09:29: Q6HPRN, [place] injection 4 42 Starting Medi blanquita mg [facility] Branch 09/05/20 at 0429, Until Discontinu ed, Routine, Nausea and Vomiting (N/V) glucagon Yes 1mg 1 mg, Univers (GLUCAGEN 4-10 Intramuscu ity of DIAGNOSTIC 09:28: lar, PRN, [place] KIT) 38 Starting Medical injection 1 [facility] mg 09/05/20 at 0428, Until Discontinu ed, TRANG, Blood Glucose < or = 70 mg/dL and patient is unable to swallow or has mental changes. dextrose 50 Yes 25mL 25 mL, Univ ers % in water - Slow IV ity of (D50W) 09:28: Push, PRN, [place] injection 38 Starting Medica l 25 mL Sat Branch 09/05/20 at 0428, Until Discontinu ed, TRANG, Blood Glucose < or = 70 mg/dL and patient is unable to swallow or has mental status changes. cefTRIAXone 2020- No 1000mg 1,000 mg, Univers (ROCEPHIN) 09-05-10 IV ity of 1,000 mg in 05:15: 04:49 Piggyback, [place] NaCl 0.9% 00 :00 ONCE, 1 Medical (NS) 50 mL dose, Sat Bran ch MINI-BAG 09/05/20 at 0015, 50 mL
Reas on for Anti-Infec tive: Documented Infection< br>Documen anthony Infection Site: Urine
D uration of Therapy: Other (see Comments) insulin 2020- No 18U 18 Units, Univ ers regular 09-05 04-10 Subcutaneo ity o f human 04:30: 03:27 , ONCE, [place] (HUMULIN R) 00 :00 1 dose, Medic al injection 09/04/20 Bran ch 18 Units at 2330, Routine atorvastati Yes [id number] 80mg Take 1 Univers n 80 mg 3-10 tablet by ity of tablet 00:00: mouth at [place] [address] bedtime. Medical Branch atorvastati Yes [id number] 80mg Take 1 Univers n 80 mg 3-10 tablet by ity of tablet 00:00: mouth at [place] [address] bedtime. Medical Branch atorvastati Yes [id number] 80mg Take 1 Univers n 80 mg 3-10 tablet by ity of tablet 00:00: mouth at [place] [address] bedtime. Medical Branch atorvastati Yes [id number] 80mg Take 1 Univers n 80 mg 3-10 tablet by ity of tablet 00:00: mouth at [place] [address] bedtime. Medical Branch atorvastati Yes [id number] 80mg Take 1 Univers n 80 mg 3-10 tablet by ity of tablet 00:00: mouth at [place] [address] bedtime. Medical Branch atorvastati 0 1- No [id number] 80mg Take 1 Univers n 80 mg [...] TWICE Medical DAILY WITH Branch MEALS METFORMIN 1-0 Yes TAKE 2 Univer s 500 mg 3-09 TABLETS BY ity of tablet 00:00: MOUTH [place] 00 TWICE Medical DAILY WITH Branch MEALS METFORMIN 1-0 Yes TAKE 2 Univer s 500 mg 3-09 TABLETS BY ity of tablet 00:00: MOUTH [place] 00 TWICE Medical DAILY WITH Branch MEALS METFORMIN 1-0 Yes TAKE 2 Univer s 500 mg 3-09 TABLETS BY ity of tablet 00:00: MOUTH [place] 00 TWICE Medical DAILY WITH Branch MEALS METFORMIN 1-0 Yes TAKE 2 Univer s 500 mg 3-09 TABLETS BY ity of tablet 00:00: MOUTH [place] 00 TWICE Medical DAILY WITH Branch MEALS METFORMIN 1-0 Yes TAKE 2 Univer s 500 mg 3-09 TABLETS BY ity of tablet 00:00: MOUTH [place] 00 TWICE Medical DAILY WITH Branch MEALS METFORMIN 2021-0 Yes TAKE 2 Univer s 500 mg 3-09 TABLETS BY ity of tablet 00:00: MOUTH [place] 00 TWICE Medical DAILY WITH Branch MEALS METFORMIN 1-0 Yes TAKE 2 Univer s 500 mg 3-09 TABLETS BY ity of tablet 00:00: MOUTH [place] 00 TWICE Medical DAILY WITH Branch MEALS METFORMIN 1-0 Yes TAKE 2 Univer s 500 mg 3-09 TABLETS BY ity of tablet 00:00: MOUTH [place] 00 TWICE Medical DAILY WITH Branch MEALS isosorbide 2021-0 Yes [id number] 30mg Take 1 Univers mononitrate 1-11 tablet by ity of 30 mg 24 hr 00:00: mouth [place] tablet 00 daily. Medical Branch metoprolol 1-0 Yes [id number] 100mg Take 1 Univers succinate 1-11 tablet by ity o f XL 100 mg 00:00: mouth [place] 24 hr 00 daily. Medical tablet Branch pantoprazol Yes [id number] 40mg Take 1 Univers e 40 mg EC 1-11 tablet by ity of tablet 00:00: mouth [place] 00 daily. Medical Branch isosorbide 0 Yes [id number] 30mg Take 1 Univers mononitrate 1-11 tablet by ity of 30 mg 24 hr 00:00: mouth [place] tablet 00 daily. Medical Branch metoprolol 0 Yes [id number] 100mg Take 1 Univers succinate 1-11 tablet by ity o f XL 100 mg 00:00: mouth [place] 24 hr 00 daily. Medical tablet Branch pantoprazol Yes [id number] 40mg Take 1 Univers e 40 mg EC 1-11 tablet by ity of tablet 00:00: mouth [place] 00 daily. Medical Branch isosorbide Yes [id number] 30mg Take 1 Univers mononitrate 1-11 tablet by ity of 30 mg 24 hr 00:00: mouth [place] tablet 00 daily. Medical Branch metoprolol Yes [id number] 100mg Take 1 Univers succinate 1-11 tablet by ity o f XL 100 mg 00:00: mouth [place] 24 hr 00 daily. Medical tablet Branch pantoprazol Yes [id number] 40mg Take 1 Univers e 40 mg EC 1-11 tablet by ity of tablet 00:00: mouth [place] 00 daily. Medical Branch isosorbide Yes [id number] 30mg Take 1 Univers mononitrate 1-11 tablet by ity of 30 mg 24 hr 00:00: mouth [place] tablet 00 daily. Medical Branch metoprolol 0 Yes [id number] 100mg Take 1 Univers succinate 1-11 tablet by ity o f XL 100 mg 00:00: mouth [place] 24 hr 00 daily. Medical tablet Branch pantoprazol Yes [id number] 40mg Take 1 Univers e 40 mg EC 1-11 tablet by ity of tablet 00:00: mouth [place] 00 daily. Medical Branch isosorbide Yes [id number] 30mg Take 1 Univers mononitrate 1-11 tablet by ity of 30 mg 24 hr 00:00: mouth [place] tablet 00 daily. Medical Branch metoprolol Yes [id number] 100mg Take 1 Univers succinate 1-11 tablet by ity o f XL 100 mg 00:00: mouth [place] 24 hr 00 daily. Medical tablet Branch pantoprazol 0 Yes [id number] 40mg Take 1 Univers e 40 mg EC 1-11 tablet by ity of tablet 00:00: mouth [place] 00 daily. Medical Branch isosorbide 2020-0 Yes [id number] 30mg Take 1 Univers mononitrate 1-11 tablet by ity of 30 mg 24 hr 00:00: mouth [place] tablet 00 daily. Medical Branch metoprolol 0 Yes [id number] 100mg Take 1 Univers succinate 1-11 tablet by ity o f XL 100 mg 00:00: mouth [place] 24 hr 00 daily. Medical tablet Branch pantoprazol Yes [id number] 40mg Take 1 Univers e 40 mg EC 1-11 tablet by ity of tablet 00:00: mouth [place] 00 daily. Medical Branch isosorbide 2020-0 Yes [id number] 30mg Take 1 Univers mononitrate 1-11 tablet by ity of 30 mg 24 hr 00:00: mouth [place] tablet 00 daily. Medical Branch metoprolol 0 Yes [id number] 100mg Take 1 Univers succinate 1-11 tablet by ity o f XL 100 mg 00:00: mouth [place] 24 hr 00 daily. Medical tablet Branch pantoprazol Yes [id number] 40mg Take 1 Univers e 40 mg EC 1-11 tablet by ity of tablet 00:00: mouth [place] 00 daily. Medical Branch isosorbide 2020-0 Yes [id number] 30mg Take 1 Univers mononitrate 1-11 tablet by ity of 30 mg 24 hr 00:00: mouth [place] tablet 00 daily. Medical Branch metoprolol 0 Yes [id number] 100mg Take 1 Univers succinate 1-11 tablet by ity o f XL 100 mg 00:00: mouth [place] 24 hr 00 daily. Medical tablet Branch pantoprazol Yes [id number] 40mg Take 1 Univers e 40 mg EC 1-11 tablet by ity of tablet 00:00: mouth [place] 00 daily. Medical Branch isosorbide 2020-0 Yes [id number] 30mg Take 1 Univers mononitrate 1-11 tablet by ity of 30 mg 24 hr 00:00: mouth [place] tablet 00 daily. Medical Branch metoprolol Yes [id number] 100mg Take 1 Univers succinate 1-11 tablet by ity o f XL 100 mg 00:00: mouth [place] 24 hr 00 daily. Medical tablet Branch pantoprazol Yes [id number] 40mg Take 1 Univers e 40 mg EC 1-11 tablet by ity of tablet 00:00: mouth [place] 00 daily. Medical Branch isosorbide Yes [id number] 30mg Take 1 Univers mononitrate 1-11 tablet by ity of 30 mg 24 hr 00:00: mouth [place] tablet 00 daily. Medical Branch metoprolol Yes [id number] 100mg Take 1 Univers succinate 1-11 tablet by ity o f XL 100 mg 00:00: mouth [place] 24 hr 00 daily. Medical tablet Branch pantoprazol Yes [id number] 40mg Take 1 Univers e 40 mg EC 1-11 tablet by ity of tablet 00:00: mouth [place] 00 daily. Medical Branch isosorbide Yes [id number] 30mg Take 1 Univers mononitrate 1-11 tablet by ity of 30 mg 24 hr 00:00: mouth [place] tablet 00 daily. Medical Branch metoprolol Yes [id number] 100mg Take 1 Univers succinate 1-11 tablet by ity o f XL 100 mg 00:00: mouth [place] 24 hr 00 daily. Medical tablet Branch pantoprazol Yes [id number] 40mg Take 1 Univers e 40 mg EC 1-11 tablet by ity of tablet 00:00: mouth [place] 00 daily. Medical Branch pantoprazol Yes [id number] 40mg Take 1 Univers e 40 mg EC 1-11 tablet by ity of tablet 00:00: mouth [place] 00 daily. Medical Branch pantoprazol Yes [id number] 40mg Take 1 Univers e 40 mg EC 1-11 tablet by ity of tablet 00:00: mouth [place] 00 daily. Medical Branch pantoprazol Yes [id number] 40mg Take 1 Univers e 40 mg EC 1-11 tablet by ity of tablet 00:00: mouth [place] 00 daily. Medical Branch pantoprazol Yes [id number] 40mg Take 1 Univers e 40 mg EC 1-11 tablet by ity of tablet 00:00: mouth [place] 00 daily. Medical Branch pantoprazol Yes [id number] 40mg Take 1 Univers e 40 mg EC 1-11 tablet by ity of tablet 00:00: mouth [place] 00 daily. Medical Branch pantoprazol Yes [id number] 40mg Take 1 Univers e 40 mg EC 1-11 tablet by ity of tablet 00:00: mouth [place] 00 daily. Medical Branch pantoprazol Yes [id number] 40mg Take 1 Univers e 40 mg EC 1-11 tablet by ity of tablet 00:00: mouth [place] 00 daily. Medical Branch pantoprazol Yes [id number] 40mg Take 1 Univers e 40 mg EC 1-11 tablet by ity of tablet 00:00: mouth [place] 00 daily. Medical Branch pantoprazol Yes [id number] 40mg Take 1 Univers e 40 mg EC 1-11 tablet by ity of tablet 00:00: mouth [place] 00 daily. Medical Branch pantoprazol Yes [id number] 40mg Take 1 Univers e 40 mg EC 1-11 tablet by ity of tablet 00:00: mouth [place] 00 daily. Medical Branch pantoprazol Yes [id number] 40mg Take 1 Univers e 40 mg EC 1-11 tablet by ity of tablet 00:00: mouth [place] 00 daily. Medical Branch pantoprazol Yes [id number] 40mg Take 1 Univers e 40 mg EC 1-11 tablet by ity of tablet 00:00: mouth [place] 00 daily. Medical Branch pantoprazol Yes [id number] 40mg Take 1 Univers e 40 mg EC 1-11 tablet by ity of tablet 00:00: mouth [place] 00 daily. Medical Branch pantoprazol Yes [id number] 40mg Take 1 Univers e 40 mg EC 1-11 tablet by ity of tablet 00:00: mouth [place] 00 daily. Medical Branch pantoprazol Yes [id number] 40mg Take 1 Univers e 40 mg EC 1-11 tablet by ity of tablet 00:00: mouth [place] 00 daily. Medical Branch pantoprazol Yes [id number] 40mg Take 1 Univers e 40 mg EC 1-11 tablet by ity of tablet 00:00: mouth [place] 00 daily. Medical Branch pantoprazol 2021-0 Yes [id number] 40mg Take 1 Univers e 40 mg EC 1-11 tablet by ity of tablet 00:00: mouth [place] 00 daily. Medical Branch pantoprazol Yes [id number] 40mg Take 1 Univers e 40 mg EC 1-11 tablet by ity of tablet 00:00: mouth [place] 00 daily. Medical Branch pantoprazol Yes [id number] 40mg Take 1 Univers e 40 mg EC 1-11 tablet by ity of tablet 00:00: mouth [place] 00 daily. Medical Branch pantoprazol Yes [id number] 40mg Take 1 Univers e 40 mg EC 1-11 tablet by ity of tablet 00:00: mouth [place] 00 daily. Medical Branch pantoprazol Yes [id number] 40mg Take 1 Univers e 40 mg EC 1-11 tablet by ity of tablet 00:00: mouth [place] 00 daily. Medical Branch pantoprazol Yes [id number] 40mg Take 1 Univers e 40 mg EC 1-11 tablet by ity of tablet 00:00: mouth [place] 00 daily. Medical Branch pantoprazol Yes [id number] 40mg Take 1 Univers e 40 mg EC 1-11 tablet by ity of tablet 00:00: mouth [place] 00 daily. Medical Branch pantoprazol Yes [id number] 40mg Take 1 Univers e 40 mg EC 1-11 tablet by ity of tablet 00:00: mouth [place] 00 daily. Medical Branch pantoprazol Yes [id number] 40mg Take 1 Univers e 40 mg EC 1-11 tablet by ity of tablet 00:00: mouth [place] 00 daily. Medical Branch pantoprazol Yes [id number] 40mg Take 1 Univers e 40 mg EC 1-11 tablet by ity of tablet 00:00: mouth [place] 00 daily. Medical Branch pantoprazol Yes [id number] 40mg Take 1 Univers e 40 mg EC 1-11 tablet by ity of tablet 00:00: mouth [place] 00 daily. Medical Branch pantoprazol Yes [id number] 40mg Take 1 Univers e 40 mg EC 1-11 tablet by ity of tablet 00:00: mouth [place] 00 daily. Medical Branch pantoprazol 0 Yes [id number] 40mg Take 1 Univers e 40 mg EC 1-11 tablet by ity of tablet 00:00: mouth [place] 00 daily. Medical Branch pantoprazol Yes [id number] 40mg Take 1 Univers e 40 mg EC 1-11 tablet by ity of tablet 00:00: mouth [place] 00 daily. Medical Branch pantoprazol Yes [id number] 40mg Take 1 Univers e 40 mg [...] disease daily. Medical Branch isosorbide 2020- No [id number] 30mg Take 1 Univers mononitrate 11 04-12 tablet by it y of 30 mg 24 hr 00:00: 00:00 mouth [place] tablet 00 :00 daily. Medical Branch metoprolol 2020- No [id number] 100mg Take 1 Univers succinate - 04-12 tablet by ity of XL 100 mg 00:00: 00:00 mouth [place] 24 hr 00 :00 daily. Medical tablet Branch methocarbam Yes [id number] 500mg Take 1 Univers oL 500 mg 1-08 tablet by ity o f tablet 00:00: mouth 4 [place] 00 (four) Medical times Branch daily as needed (muscle spasm). isosorbide Yes [id number] 30mg Take 1 Univers mononitrate 1-08 tablet by ity of 30 mg 24 hr 00:00: mouth [place] tablet 00 daily. Medical Branch potassium Yes [id number] 10meq Take 1 U nivers chloride 10 1-08 tablet by ity of mEq CR 00:00: mouth [place] tablet 00 daily. Medical Branch methocarbam Yes [id number] 500mg Take 1 Univers oL 500 mg 1-08 tablet by ity o f tablet 00:00: mouth 4 [place] 00 (four) Medical times Branch daily as needed (muscle spasm). potassium Yes [id number] 10meq Take 1 U nivers chloride 10 1-08 tablet by ity of mEq CR 00:00: mouth [place] tablet 00 daily. [facility] Branch methocarbam Yes [id number] 500mg Take 1 Univers oL 500 mg 1-08 tablet by ity o f tablet 00:00: mouth 4 [place] 00 (four) Medical times Branch daily as needed (muscle spasm). potassium Yes [id number] 10meq Take 1 U nivers chloride 10 1-08 tablet by ity of mEq CR 00:00: mouth [place] tablet 00 daily. [facility] Branch methocarbam Yes [id number] 500mg Take 1 Univers oL 500 mg 1-08 tablet by ity o f tablet 00:00: mouth 4 [place] 00 (four) Medical times Branch daily as needed (muscle spasm). potassium Yes [id number] 10meq Take 1 U nivers chloride 10 1-08 tablet by ity of mEq CR 00:00: mouth [place] tablet 00 daily. [facility] Branch methocarbam Yes [id number] 500mg Take 1 Univers oL 500 mg 1-08 tablet by ity o f tablet 00:00: mouth 4 [place] 00 (four) Medical times Branch daily as needed (muscle spasm). potassium Yes [id number] 10meq Take 1 U nivers chloride 10 1-08 tablet by ity of mEq CR 00:00: mouth [place] tablet 00 daily. [facility] Branch methocarbam Yes [id number] 500mg Take 1 Univers oL 500 mg 1-08 tablet by ity o f tablet 00:00: mouth 4 [place] 00 (four) Medical times Branch daily as needed (muscle spasm). potassium Yes [id number] 10meq Take 1 U nivers chloride 10 1-08 tablet by ity of mEq CR 00:00: mouth [place] tablet 00 daily. [facility] Branch methocarbam Yes [id number] 500mg Take 1 Univers oL 500 mg 1-08 tablet by ity o f tablet 00:00: mouth 4 [place] 00 (four) Medical times Branch daily as needed (muscle spasm). potassium Yes [id number] 10meq Take 1 U nivers chloride 10 1-08 tablet by ity of mEq CR 00:00: mouth [place] tablet 00 daily. [facility] Branch methocarbam Yes [id number] 500mg Take 1 Univers oL 500 mg 1-08 tablet by ity o f tablet 00:00: mouth 4 [place] 00 (four) Medical times Branch daily as needed (muscle spasm). potassium Yes [id number] 10meq Take 1 U nivers chloride 10 1-08 tablet by ity of mEq CR 00:00: mouth [place] tablet 00 daily. [facility] Branch methocarbam Yes [id number] 500mg Take 1 Univers oL 500 mg 1-08 tablet by ity o f tablet 00:00: mouth 4 [place] 00 (four) Medical times Branch daily as needed (muscle spasm). potassium Yes [id number] 10meq Take 1 U nivers chloride 10 1-08 tablet by ity of mEq CR 00:00: mouth [place] tablet 00 daily. [facility] potassium Yes [id number] 10meq Take 1 U nivers chloride 10 1-08 tablet by ity of mEq CR 00:00: mouth [place] tablet 00 daily. [facility] potassium Yes [id number] 10meq Take 1 U nivers chloride 10 1-08 tablet by ity of mEq CR 00:00: mouth [place] tablet 00 daily. [facility] Branch potassium Yes [id number] 10meq Take 1 U nivers chloride 10 1-08 tablet by ity of mEq CR 00:00: mouth [place] tablet 00 daily. [facility] potassium 2020- No [id number] 10meq Take 1 Univers chloride 10 1-08 04-12 tablet by it y of mEq CR 00:00: 00:00 mouth [place] tablet 00 :00 daily. [facility] Branch methocarbam 2020- No [id number] 500mg Take 1 Univers oL 500 mg -08 -09 tablet by ity of tablet 00:00: 00:00 mouth 4 [place] 00 :00 (four) Medical times Branch daily as needed (muscle spasm). methocarbam 2020- No [id number] 500mg Take 1 Univers oL 500 mg -08 04-09 tablet by ity of tablet 00:00: 00:00 mouth 4 [place] 00 :00 (four) Medical times Branch daily as needed (muscle spasm). isosorbide 2020- No [id number] 30mg Take 1 Univers mononitrate 06-05 tablet by it y of 30 mg 24 hr 00:00: 00:00 mouth [place] tablet 00 :00 daily. Medical Branch gabapentin 2020-1 Yes [id number] 800mg Take 1 Univers 800 mg 2-22 tablet by ity of tablet 00:00: mouth 3 (three) Medical times Branch daily. gabapentin 2020-1 Yes [id number] 800mg Take 1 Univers 800 mg 2-22 tablet by ity of tablet 00:00: mouth 3 (three) Medical times Branch daily. gabapentin 2020-1 Yes [id number] 800mg Take 1 Univers 800 mg 2-22 tablet by ity of tablet 00:00: mouth 3 (three) Medical times Branch daily. gabapentin 2020-1 Yes [id number] 800mg Take 1 Univers 800 mg 2-22 tablet by ity of tablet 00:00: mouth 3 (three) Medical times Branch daily. gabapentin 2020-1 Yes [id number] 800mg Take 1 Univers 800 mg 2-22 tablet by ity of tablet 00:00: mouth (three) Medical times Branch daily. gabapentin 2020-1 Yes [id number] 800mg Take 1 Univers 800 mg 2-22 tablet by ity of tablet 00:00: mouth (three) Medical times Branch daily. gabapentin 2020-1 Yes [id number] 800mg Take 1 Univers 800 mg 2-22 tablet by ity of tablet 00:00: mouth (three) Medical times Branch daily. gabapentin 2020-1 Yes [id number] 800mg Take 1 Univers 800 mg 2-22 tablet by ity of tablet 00:00: mouth (three) Medical times Branch daily. gabapentin 2020-1 Yes [id number] 800mg Take 1 Univers 800 mg 2-22 tablet by ity of tablet 00:00: mouth 3 (three) Medical times Branch daily. gabapentin 2020-1 Yes [id number] 800mg Take 1 Univers 800 mg 2-22 tablet by ity of tablet 00:00: mouth 3 (three) Medical times Branch daily. gabapentin 2020-1 Yes [id number] 800mg Take 1 Univers 800 mg 2-22 tablet by ity of tablet 00:00: mouth 3 (three) Medical times Branch daily. gabapentin 2020-1 Yes [id number] 800mg Take 1 Univers 800 mg 2-22 tablet by ity of tablet 00:00: mouth 3 (three) Medical times Branch daily. gabapentin 2020-1 Yes [id number] 800mg Take 1 Univers 800 mg 2-22 tablet by ity of tablet 00:00: mouth 3 (three) Medical times Branch daily. gabapentin 2020-1 Yes [id number] 800mg Take 1 Univers 800 mg 2-22 tablet by ity of tablet 00:00: mouth 3 (three) Medical times Branch daily. gabapentin 2020-1 Yes [id number] 800mg Take 1 Univers 800 mg 2-22 tablet by ity of tablet 00:00: mouth (three) Medical times Branch daily. gabapentin 2020-1 Yes [id number] 800mg Take 1 Univers 800 mg 2-22 tablet by ity of tablet 00:00: mouth (three) Medical times Branch daily. gabapentin 2020-1 Yes [id number] 800mg Take 1 Univers 800 mg 2-22 tablet by ity of tablet 00:00: mouth (three) Medical times Branch daily. gabapentin 2020-1 Yes [id number] 800mg Take 1 Univers 800 mg 2-22 tablet by ity of tablet 00:00: mouth (three) Medical times Branch daily. gabapentin 2020-1 Yes [id number] 800mg Take 1 Univers 800 mg 2-22 tablet by ity of tablet 00:00: mouth (three) Medical times Branch daily. gabapentin 2020-1 Yes [id number] 800mg Take 1 Univers 800 mg 2-22 tablet by ity of tablet 00:00: mouth (three) Medical times Branch daily. gabapentin 2020-1 Yes [id number] 800mg Take 1 Univers 800 mg 2-22 tablet by ity of tablet 00:00: mouth 3 (three) Medical times Branch daily. gabapentin 2020-1 Yes [id number] 800mg Take 1 Univers 800 mg 2-22 tablet by ity of tablet 00:00: mouth 3 (three) Medical times Branch daily. gabapentin 2020-1 Yes [id number] 800mg Take 1 Univers 800 mg 2-22 tablet by ity of tablet 00:00: mouth 3 (three) Medical times Branch daily. gabapentin 2020-1 Yes [id number] 800mg Take 1 Univers 800 mg 2-22 tablet by ity of tablet 00:00: mouth 3 (three) Medical times Branch daily. gabapentin 2020- Yes [id number] 800mg Take 1 Univers 800 mg 2-22 tablet by ity of tablet 00:00: mouth 3 (three) Medical times Branch daily. gabapentin 2020- Yes [id number] 800mg Take 1 Univers 800 mg 2-22 tablet by ity of tablet 00:00: mouth 3 (three) Medical times Branch daily. gabapentin 2020- Yes [id number] 800mg Take 1 Univers 800 mg 2-22 tablet by ity of tablet 00:00: mouth 3 (three) Medical times Branch daily. gabapentin 2020- Yes [id number] 800mg Take 1 Univers 800 mg 2-22 tablet by ity of tablet 00:00: mouth 3 (three) Medical times Branch daily. gabapentin 2019- Yes [id number] 800mg Take 1 Univers 800 mg 2-22 tablet by ity of tablet 00:00: mouth 3 [place] (three) Medical times Branch daily. gabapentin 2019- Yes [id number] 800mg Take 1 Univers 800 mg 2-22 tablet by ity of tablet 00:00: mouth 3 (three) Medical times Branch daily. gabapentin 2019- Yes [id number] 800mg Take 1 Univers 800 mg 2-22 tablet by ity of tablet 00:00: mouth 3 (three) Medical times Branch daily. gabapentin 2019- Yes Neuropathy 800mg Take 1 Univers 800 mg 2-22 tablet by ity of tablet 00:00: mouth 3 [place] (three) Medical times Branch daily. gabapentin 2019- Yes Neuropathy 800mg Take 1 Univers 800 mg 2-22 tablet by ity of tablet 00:00: mouth 3 (three) Medical times Branch daily. gabapentin 2019-2020- No [id number] 800mg Take 1 Univers 800 mg 2-22 07-23 tablet by ity of tablet 00:00: 00:00 mouth 3 [place] 00 :00 (three) Medical times Branch daily. methocarbam 2019- Yes [id number] 500mg Take 1 Univers oL 500 mg 2-11 tablet by ity o f tablet 00:00: mouth 4 00 (four) Medical times Branch daily as needed (muscle spasm). methocarbam 2019-1 Yes [id number] 500mg Take 1 Univers oL 500 mg 2-11 tablet by ity o f tablet 00:00: mouth 4 (four) Medical times Branch daily as needed (muscle spasm). methocarbam 2019-05 Yes [id number] 500mg Take 1 Univers oL 500 mg 2-11 tablet by ity o f tablet 00:00: mouth 4 (four) Medical times Branch daily as needed (muscle spasm). methocarbam 2019-05 Yes [id number] 500mg Take 1 Univers oL 500 mg 2-11 tablet by ity o f tablet 00:00: mouth 4 (four) Medical times Branch daily as needed (muscle spasm). methocarbam 2019-05 Yes [id number] 500mg Take 1 Univers oL 500 mg 2-11 tablet by ity o f tablet 00:00: mouth (four) Medical times Branch daily as needed (muscle spasm). methocarbam 2019-05 Yes [id number] 500mg Take 1 Univers oL 500 mg 2-11 tablet by ity o f tablet 00:00: mouth (four) Medical times Branch daily as needed (muscle spasm). methocarbam 2019-05 Yes [id number] 500mg Take 1 Univers oL 500 mg 2-11 tablet by ity o f tablet 00:00: mouth (four) Medical times Branch daily as needed (muscle spasm). methocarbam 2019-05- No [id number] 500mg Take 1 Univers oL 500 mg 2-11 -08 tablet by ity of tablet 00:00: 00:00 mouth 4 [place] 00 :00 (four) Medical times Branch daily as needed (muscle spasm). PANTOPRAZOL 2019-05 Yes [id number] TAKE 1 [facility] 40 mg EC 1-18 TABLET BY [facility] tablet 00:00: MOUTH ONCE 00 DAILY DO Medical NOT CRUSH Branch OR CHEW FUROSEMIDE 2019-05 Yes [id number] Take 1 [facility] 20 mg 1-18 tablet by [facility] tablet 00:00: mouth once [place] 00 daily Medical Branch POTASSIUM 2019-05 Yes [id number] Take 1 [facility] CHLORIDE 10 1-18 tablet by [facility] mEq CR 00:00: mouth once [place] tablet 00 daily Medical Branch PANTOPRAZOL 2019-05 Yes [id number] TAKE 1 [facility] E 40 mg EC 1-18 TABLET BY [facility] tablet 00:00: MOUTH ONCE [place] 00 DAILY DO Medical NOT CRUSH Branch OR CHEW FUROSEMIDE 2020- Yes [id number] Take 1 [facility] 20 mg 1-18 tablet by [facility] tablet 00:00: mouth once [place] 00 daily Medical Branch POTASSIUM 2020-1 Yes [id number] Take 1 [facility] CHLORIDE 10 1-18 tablet by [facility] mEq CR 00:00: mouth once [place] tablet 00 daily Medical Branch PANTOPRAZOL 2020- Yes [id number] TAKE 1 [facility] E 40 mg EC 1-18 TABLET BY [facility] tablet 00:00: MOUTH ONCE [place] 00 DAILY DO Medical NOT CRUSH Branch OR CHEW FUROSEMIDE 2020- Yes [id number] Take 1 [facility] 20 mg 1-18 tablet by [facility] tablet 00:00: mouth once [place] 00 daily Medical Branch POTASSIUM 2020- Yes [id number] Take 1 [facility] CHLORIDE 10 1-18 tablet by [facility] mEq CR 00:00: mouth once [place] tablet 00 daily Medical Branch PANTOPRAZOL 2020- Yes [id number] TAKE 1 [facility] E 40 mg EC 1-18 TABLET BY [facility] tablet 00:00: MOUTH ONCE [place] 00 DAILY DO Medical NOT CRUSH Branch OR CHEW FUROSEMIDE 2020- Yes [id number] Take 1 [facility] 20 mg 1-18 tablet by [facility] tablet 00:00: mouth once [place] 00 daily Medical Branch POTASSIUM 2020-1 Yes [id number] Take 1 [facility] CHLORIDE 10 1-18 tablet by [facility] mEq CR 00:00: mouth once [place] tablet 00 daily Medical Branch PANTOPRAZOL 2020- Yes [id number] TAKE 1 [facility] E 40 mg EC 1-18 TABLET BY [facility] tablet 00:00: MOUTH ONCE [place] 00 DAILY DO Medical NOT CRUSH Branch OR CHEW FUROSEMIDE 2020- Yes [id number] Take 1 [facility] 20 mg 1-18 tablet by [facility] tablet 00:00: mouth once [place] 00 daily Medical Branch POTASSIUM 2020-1 Yes [id number] Take 1 [facility] CHLORIDE 10 1-18 tablet by [facility] mEq CR 00:00: mouth once [place] tablet 00 daily Medical Branch PANTOPRAZOL 2020- Yes [id number] TAKE 1 [facility] 40 mg EC 1-18 TABLET BY [facility] tablet 00:00: MOUTH ONCE [place] 00 DAILY DO Medical NOT CRUSH Branch OR CHEW FUROSEMIDE 2020- Yes [id number] Take 1 [facility] 20 mg 1-18 tablet by [facility] tablet 00:00: mouth once [place] 00 daily Medical Branch POTASSIUM 2020-1 Yes [id number] Take 1 [facility] CHLORIDE 10 1-18 tablet by [facility] mEq CR 00:00: mouth once [place] tablet 00 daily Medical Branch PANTOPRAZOL 2020- Yes [id number] TAKE 1 [facility] 40 mg EC 1-18 TABLET BY [facility] tablet 00:00: MOUTH ONCE [place] 00 DAILY DO Medical NOT CRUSH Branch OR CHEW FUROSEMIDE 2020- Yes [id number] Take 1 [facility] 20 mg 1-18 tablet by [facility] tablet 00:00: mouth once [place] 00 daily Medical Branch POTASSIUM 2020-1 Yes [id number] Take 1 [facility] CHLORIDE 10 1-18 tablet by [facility] mEq CR 00:00: mouth once [place] tablet 00 daily Medical Branch PANTOPRAZOL 2020- Yes [id number] TAKE 1 [facility] E 40 mg EC 1-18 TABLET BY [facility] tablet 00:00: MOUTH ONCE [place] 00 DAILY DO Medical NOT CRUSH Branch OR CHEW FUROSEMIDE 2020 Yes [id number] Take 1 [facility] 20 mg 1-18 tablet by [facility] tablet 00:00: mouth once [place] 00 daily Medical Branch POTASSIUM 2020-1 Yes [id number] Take 1 [facility] CHLORIDE 10 1-18 tablet by [facility] mEq CR 00:00: mouth once [place] tablet 00 daily Medical Branch PANTOPRAZOL 2020- Yes [id number] TAKE 1 [facility] 40 mg EC 1-18 TABLET BY [facility] tablet 00:00: MOUTH ONCE [place] 00 DAILY DO Medical NOT CRUSH Branch OR CHEW FUROSEMIDE 2020- Yes [id number] Take 1 [facility] 20 mg 1-18 tablet by [facility] tablet 00:00: mouth once [place] 00 daily Medical Branch FUROSEMIDE 2020-1 Yes [id number] Take 1 [facility] 20 mg 1-18 tablet by [facility] tablet 00:00: mouth once [place] 00 daily Medical Branch FUROSEMIDE 2020- Yes [id number] Take 1 [facility] 20 mg 1-18 tablet by [facility] tablet 00:00: mouth once daily Medical Branch FUROSEMIDE 2020- Yes [id number] Take 1 [facility] 20 mg 1-18 tablet by [facility] tablet 00:00: mouth once [place] 00 daily Medical Branch FUROSEMIDE 2020-1 Yes [id number] Take 1 [facility] 20 mg 1-18 tablet by [facility] tablet 00:00: mouth once daily Medical Branch FUROSEMIDE 2019-05 Yes [id number] Take 1 [facility] 20 mg 1-18 tablet by [facility] tablet 00:00: mouth once [place] daily Medical Branch FUROSEMIDE 2019-05 Yes [id number] Take 1 [facility] 20 mg 1-18 tablet by [facility] tablet 00:00: mouth once [place] daily Medical Branch FUROSEMIDE 2019-05 Yes [id number] Take 1 [facility] 20 mg 1-18 tablet by [facility] tablet 00:00: mouth once [place] daily Medical Branch FUROSEMIDE 2019-05 Yes [id number] Take 1 [facility] 20 mg 1-18 tablet by [facility] tablet 00:00: mouth once [place] daily Medical Branch FUROSEMIDE 2019-05 Yes [id number] Take 1 [facility] 20 mg 1-18 tablet by [facility] tablet 00:00: mouth once [place] daily Medical Branch FUROSEMIDE 2019-05 Yes [id number] Take 1 [facility] 20 mg 1-18 tablet by [facility] tablet 00:00: mouth once [place] daily Medical Branch FUROSEMIDE 2019-05 Yes [id number] Take 1 [facility] 20 mg 1-18 tablet by [facility] tablet 00:00: mouth once [place] daily Medical Branch FUROSEMIDE 2019-05- No [id number] Take 1 [facility] 20 mg 1-18 04-12 tablet by [facility] tablet 00:00: 00:00 mouth once [place] 00 :00 daily [facility] PANTOPRAZOL 2019-05- No [id number] TAKE 1 [facility] E 40 mg EC -18 06-08 TABLET BY [facility] tablet 00:00: 00:00 MOUTH ONCE [place] 00 :00 DAILY DO Medical NOT CRUSH Branch OR CHEW POTASSIUM 2019-05- No [id number] Take 1 [facility] CHLORIDE 10 -18 08 tablet by it y [facility] mEq CR 00:00: 00:00 mouth once [place] tablet 00 :00 daily [facility] gabapentin 2019-05 Yes [id number] 800mg Take 1 [facility] 800 mg 1-16 tablet by [facility] tablet 00:00: mouth 3 [place] (three) Medical times Branch daily. gabapentin 2019-05 Yes [id number] 800mg Take 1 [facility] 800 mg 1-16 tablet by [facility] tablet 00:00: mouth 3 [place] (three) Medical times Branch daily. gabapentin 2019-05 Yes [id number] 800mg Take 1 [facility] 800 mg 1-16 tablet by [facility] tablet 00:00: mouth 3 [place] 00 (three) Medical times Branch daily. gabapentin 2020-1 Yes [id number] 800mg Take 1 [facility] 800 mg 1-16 tablet by [facility] tablet 00:00: mouth 3 [place] 00 (three) Medical times Branch daily. gabapentin 2020-1 Yes [id number] 800mg Take 1 [facility] 800 mg 1-16 tablet by [facility] tablet 00:00: mouth 3 [place] 00 (three) Medical times Branch daily. gabapentin 2020-1 Yes [id number] 800mg Take 1 [facility] 800 mg 1-16 tablet by [facility] tablet 00:00: mouth 3 [place] 00 (three) Medical times Branch daily. gabapentin 2020-1 Yes [id number] 800mg Take 1 [facility] 800 mg 1-16 tablet by [facility] tablet 00:00: mouth 3 [place] 00 (three) Medical times Branch daily. gabapentin 2019- Yes [id number] 800mg Take 1 [facility] 800 mg 1-16 tablet by [facility] of tablet 00:00: mouth 3 [place] 00 (three) Medical times Branch daily. gabapentin 2019-05 2020- No [id number] 800mg Take 1 [facility] 800 mg 1-16 12-22 tablet by [facility] of tablet 00:00: 00:00 mouth 3 [place] 00 :00 (three) Medical times Branch daily. Nitrofurant 2019- Yes [id number] 100mg Take 1 [facility] oin&Nit. 1-10 capsule by [facility] o [facility] [place]rocryst 00:00: mouth 2 [place] (MACROBID[place] 00 (two) Medical 100 mg times Branch capsule daily. Nitrofurant 2019- Yes [id number] 100mg Take 1 [facility] oin&Nit. 1-10 capsule by [facility] o [facility] Macrocryst 00:00: mouth 2 [place] (MACROBID) 00 (two) Medical 100 mg times Branch capsule daily. Nitrofurant 2019- Yes [id number] 100mg Take 1 [facility] oin&Nit. 1-10 capsule by [facility] o [facility] Macrocryst 00:00: mouth 2 [place] (MACROBID) 00 (two) Medical 100 mg times Branch capsule daily. Nitrofurant 2019- Yes [id number] 100mg Take 1 [facility] oin&Nit. 1-10 capsule by [facility] o [facility] Mac[place]ryst 00:00: mouth 2 [place] (MACROBID) 00 (two) Medical 100 mg times Branch capsule daily. Nitrofurant 2019-05 Yes [id number] 100mg Take 1 [facility] oin&Nit. 1-10 capsule by [facility] o [facility] [place]ryst 00:00: mouth 2 [place] (MACROBID) 00 (two) Medical 100 mg times Branch capsule daily. Nitrofurant 2019-05 Yes [id number] 100mg Take 1 [facility] oin&Nit. 1-10 capsule by [facility] o [facility] [place]ryst 00:00: mouth 2 [place] (MACROBID) 00 (two) Medical 100 mg times Branch capsule daily. Nitrofurant 2019-05 Yes [id number] 100mg Take 1 [facility] oin&Nit. 1-10 capsule by [facility] o f Mac[place]ryst 00:00: mouth 2 [place] (MACROBID) 00 (two) Medical 100 mg times Branch capsule daily. Nitrofurant 2019-05 Yes [id number] 100mg Take 1 [facility] oin&Nit. 1-10 capsule by [facility] o f Mac[place]ryst 00:00: mouth 2 [place] (MACROBID) 00 (two) Medical 100 mg times Branch capsule daily. Nitrofurant 2019-05 2020- No [id number] 100mg Take 1 [facility] oin&Nit. 1-10 12-19 capsule by [facility] of Macrocryst 00:00: 00:00 mouth 2 [place] (MACROBID) 00 :00 (two) Medical 100 mg times Branch capsule daily. Nitrofurant 2019-05 2020- No [id number] 100mg Take 1 [facility] oin&Nit. 1-10 12-19 [...] y of thoprim 00:00: 05:59 mouth 2 [place] (BACTRIM 00 :00 (two) Medical DS) 800-160 times Branch mg per daily for tablet 7 days. sulfamethox 2019-05 2020- No 1{tbl} Take 1 [facility] azole-trime 1-10 11-18 tablet by it y of thoprim 00:00: 05:59 mouth 2 [place] (BACTRIM 00 :00 (two) Medical DS) 800-160 times Branch mg per daily for tablet 7 days. metroNIDAZO 2019-05 Yes [id number] 500mg Take 1 [facility] LE 500 mg 1-06 tablet by ity o f tablet 00:00: mouth [place] 00 every 12 Medical (twelve) Branch hours. clotrimazol 2019-05 Yes [id number] Apply to [facility] e-betametha 1-06 area(s) 2 [facility] of sone cream 00:00: (two) [place] 00 times Medical daily. Use Branch for 2 weeks on affected area metroNIDAZO 2019-05 Yes [id number] 500mg Take 1 [facility] LE 500 mg 1-06 tablet by ity o f tablet 00:00: mouth [place] 00 every 12 Medical (twelve) Branch hours. clotrimazol 2019-05 Yes [id number] Apply to [facility] e-betametha 1-06 area(s) 2 ity of sone cream 00:00: (two) [place] 00 times Medical daily. Use Branch for 2 weeks on affected area metroNIDAZO 2019-05 Yes [id number] 500mg Take 1 [facility] LE 500 mg 1-06 tablet by ity o f tablet 00:00: mouth [place] 00 every 12 Medical (twelve) Branch hours. clotrimazol 2019-05 Yes [id number] Apply to [facility] e-betametha 1-06 area(s) 2 ity of sone cream 00:00: (two) [place] 00 times Medical daily. Use Branch for 2 weeks on affected area metroNIDAZO 2019-05 Yes [id number] 500mg Take 1 [facility] LE 500 mg 1-06 tablet by ity o f tablet 00:00: mouth [place] 00 every 12 Medical (twelve) Branch hours. clotrimazol 2019- Yes [id number] Apply to [facility] e-betametha 1-06 area(s) 2 ity of sone cream 00:00: (two) [place] 00 times Medical daily. Use Branch for 2 weeks on affected area metroNIDAZO 2020- Yes [id number] 500mg Take 1 [facility] LE 500 mg 1-06 tablet by ity o f tablet 00:00: mouth [place] 00 every 12 Medical (twelve) Branch hours. clotrimazol 2020- Yes [id number] Apply to [facility] e-betametha 1-06 area(s) 2 ity of sone cream 00:00: (two) [place] 00 times Medical daily. Use Branch for 2 weeks on affected area metroNIDAZO 2020- Yes [id number] 500mg Take 1 [facility] LE 500 mg 1-06 tablet by ity o f tablet 00:00: mouth [place] 00 every 12 Medical (twelve) Branch hours. clotrimazol 2020- Yes [id number] Apply to [facility] e-betametha 1-06 area(s) 2 ity of sone cream 00:00: (two) [place] 00 times Medical daily. Use Branch for 2 weeks on affected area metroNIDAZO 2020 Yes [id number] 500mg Take 1 [facility] LE 500 mg 1-06 tablet by ity o f tablet 00:00: mouth [place] 00 every 12 Medical (twelve) Branch hours. clotrimazol 2020- Yes [id number] Apply to [facility] e-betametha 1-06 area(s) 2 ity of sone cream 00:00: (two) [place] 00 times Medical daily. Use Branch for 2 weeks on affected area metroNIDAZO 2019-05 Yes [id number] 500mg Take 1 [facility] LE 500 mg 1-06 tablet by ity o f tablet 00:00: mouth [place] 00 every 12 Medical (twelve) Branch hours. clotrimazol 2020- Yes [id number] Apply to [facility] e-betametha 1-06 area(s) 2 ity of sone cream 00:00: (two) [place] 00 times Medical daily. Use Branch for 2 weeks on affected area metroNIDAZO 2020 Yes [id number] 500mg Take 1 [facility] LE 500 mg 1-06 tablet by ity o f tablet 00:00: mouth [place] 00 every 12 Medical (twelve) Branch hours. clotrimazol 2020- Yes [id number] Apply to [facility] e-betametha 1-06 area(s) 2 ity of sone cream 00:00: (two) [place] 00 times Medical daily. Use Branch for 2 weeks on affected area metroNIDAZO 2020 Yes [id number] 500mg Take 1 [facility] LE 500 mg 1-06 tablet by ity o f tablet 00:00: mouth [place] 00 every 12 Medical (twelve) Branch hours. clotrimazol 2020- Yes [id number] Apply to [facility] e-betametha 1-06 area(s) 2 ity of sone cream 00:00: (two) [place] 00 times Medical daily. Use Branch for 2 weeks on affected area metroNIDAZO 2020- Yes [id number] 500mg Take 1 [facility] LE 500 mg 1-06 tablet by ity o f tablet 00:00: mouth [place] 00 every 12 Medical (twelve) Branch hours. clotrimazol 2020- Yes [id number] Apply to [facility] e-betametha 1-06 area(s) 2 ity of sone cream 00:00: (two) [place] 00 times Medical daily. Use Branch for 2 weeks on affected area metroNIDAZO 2020- Yes [id number] 500mg Take 1 [facility] LE 500 mg 1-06 tablet by ity o f tablet 00:00: mouth [place] 00 every 12 Medical (twelve) Branch hours. clotrimazol 2020- Yes [id number] Apply to [facility] e-betametha 1-06 area(s) 2 ity of sone cream 00:00: (two) [place] 00 times Medical daily. Use Branch for 2 weeks on affected area clotrimazol 2020- Yes [id number] Apply to [facility] e-betametha 1-06 area(s) 2 [facility]y of sone cream 00:00: (two) [place] 00 times Medical daily. Use Branch for 2 weeks on affected area clotrimazol 2020- Yes [id number] Apply to [facility] e-betametha 1-06 area(s) 2 ity of sone cream 00:00: (two) [place] 00 times Medical daily. Use Branch for 2 weeks on affected area clotrimazol 2020- Yes [id number] Apply to [facility] e-betametha 1-06 area(s) 2 ity of sone cream 00:00: (two) [place] 00 times Medical daily. Use Branch for 2 weeks on affected area clotrimazol 2020- Yes [id number] Apply to [facility] e-betametha 1-06 area(s) 2 ity of sone cream 00:00: (two) [place] 00 times Medical daily. Use Branch for 2 weeks on affected area clotrimazol 2020-1 Yes [id number] Apply to [facility] e-betametha 1-06 area(s) 2 ity of sone cream 00:00: (two) [place] 00 times Medical daily. Use Branch for 2 weeks on affected area clotrimazol 2020-1 Yes [id number] Apply to [facility] e-betametha 1-06 area(s) 2 ity of sone cream 00:00: (two) [place] 00 times Medical daily. Use Branch for 2 weeks on affected area clotrimazol 2020-1 Yes [id number] Apply to [facility] e-betametha 1-06 area(s) 2 ity of sone cream 00:00: (two) [place] 00 times Medical daily. Use Branch for 2 weeks on affected area clotrimazol 2020-1 Yes [id number] Apply to [facility] e-betametha 1-06 area(s) 2 ity of sone cream 00:00: (two) [place] 00 times Medical daily. Use Branch for 2 weeks on affected area clotrimazol 2020-1 Yes [id number] Apply to [facility] e-betametha 1-06 area(s) 2 ity of sone cream 00:00: (two) [place] 00 times Medical daily. Use Branch for 2 weeks on affected area clotrimazol 2020-1 Yes [id number] Apply to [facility] e-betametha 1-06 area(s) 2 ity of sone cream 00:00: (two) [place] 00 times Medical daily. Use Branch for 2 weeks on affected area clotrimazol 2020-1 Yes [id number] Apply to [facility] e-betametha 1-06 area(s) 2 ity of sone cream 00:00: (two) [place] 00 times Medical daily. Use Branch for 2 weeks on affected area clotrimazol 2020-1 Yes [id number] Apply to [facility] e-betametha 1-06 area(s) 2 ity of sone cream 00:00: (two) [place] 00 times Medical daily. Use Branch for 2 weeks on affected area clotrimazol 2020-1 202- No [id number] Apply to [facility] e-betametha 1-06 04-09 area(s) 2 it y of sone cream 00:00: 00:00 (two) [place] 00 :00 times Medical daily. Use Branch for 2 weeks on affected area clotrimazol 2019-05- No [id number] Apply to [facility] e-betametha 06-03 area(s) 2 it y of sone cream 00:00: 00:00 (two) [place] 00 :00 times Medical daily. Use Branch for 2 weeks on affected area metroNIDAZO 2019-05- No [id number] 500mg Take 1 [facility] LE 500 mg 06-03 tablet by [facility]y of tablet 00:00: 00:00 mouth [place] 00 :00 every 12 Medical (twelve) Branch hours. metroNIDAZO 2019-05- No [id number] 500mg Take 1 [facility] LE 500 mg 06-03 tablet by ity of tablet 00:00: 00:00 mouth [place] 00 :00 every 12 Medical (twelve) Branch hours. fluconazole 2019-05- No [id number] 150mg Take 1 [facility] 150 mg 06-03 tablet by ity of tablet 00:00: 05:59 mouth [place] 00 :00 every 72 Medical (seventy-t Branch wo) hours for 2 doses. Take one tab now and a second dose in 72 hours fluconazole 2019-05- No [id number] 150mg Take 1 [facility] 150 mg 06-03 tablet by ity of tablet 00:00: 05:59 mouth [place] 00 :00 every 72 Medical (seventy-t Branch wo) hours for 2 doses. Take one tab now and a second dose in 72 hours fluconazole 2019-05- No [id number] 150mg Take 1 [facility] 150 mg 06-03 tablet by [facility]y of tablet 00:00: 05:59 mouth [place] 00 :00 every 72 Medical (seventy-t Branch wo) hours for 2 doses. Take one tab now and a second dose in 72 hours fluconazole 2019-05- No [id number] 150mg Take 1 [facility] 150 mg 06-03 tablet by [facility] of tablet 00:00: 05:59 mouth [place] 00 :00 every 72 Medical (seventy-t Branch wo) hours for 2 doses. Take one tab now and a second dose in 72 hours PANTOPRAZOL 2019- Yes [id number] TAKE 1 [facility] E 40 mg EC 0-23 TABLET BY ity of tablet 00:00: MOUTH ONCE [place] 00 DAILY DO Medical NOT CRUSH Branch OR CHEW POTASSIUM 2020-1 Yes [id number] Take 1 [facility] CHLORIDE 10 0-23 tablet by [facility]y of mEq CR 00:00: mouth once [place] tablet 00 daily Medical Branch PANTOPRAZOL 2020- Yes [id number] TAKE 1 [facility] E 40 mg EC 0-23 TABLET BY ity of tablet 00:00: MOUTH ONCE [place] 00 DAILY DO Medical NOT CRUSH Branch OR CHEW POTASSIUM 2020-1 Yes [id number] Take 1 [facility] CHLORIDE 10 0-23 tablet by [facility] of mEq CR 00:00: mouth once [place] tablet 00 daily Medical Branch PANTOPRAZOL 2020- Yes [id number] TAKE 1 [facility] 40 mg EC 0-23 TABLET BY [facility]y of tablet 00:00: MOUTH ONCE [place] 00 DAILY DO Medical NOT CRUSH Branch OR CHEW POTASSIUM 2020- Yes [id number] Take 1 [facility] CHLORIDE 10 0-23 tablet by [facility] of mEq CR 00:00: mouth once [place] tablet 00 daily Medical Branch PANTOPRAZOL 2020- Yes [id number] TAKE 1 [facility] 40 mg EC 0-23 TABLET BY ity of tablet 00:00: MOUTH ONCE [place] 00 DAILY DO Medical NOT CRUSH Branch OR CHEW POTASSIUM 2020-1 Yes [id number] Take 1 [facility] CHLORIDE 10 0-23 tablet by [facility]y of mEq CR 00:00: mouth once [place] tablet 00 daily Medical Branch PANTOPRAZOL 2020- Yes [id number] TAKE 1 [facility] 40 mg EC 0-23 TABLET BY [facility]y of tablet 00:00: MOUTH ONCE [place] 00 DAILY DO Medical NOT CRUSH Branch OR CHEW POTASSIUM 2020-1 Yes [id number] Take 1 [facility] CHLORIDE 10 0-23 tablet by [facility]y of mEq CR 00:00: mouth once [place] tablet 00 daily Medical Branch PANTOPRAZOL 2020-1 Yes [id number] TAKE 1 [facility] 40 mg EC 0-23 TABLET BY [facility] of tablet 00:00: MOUTH ONCE [place] 00 DAILY DO Medical NOT CRUSH Branch OR CHEW POTASSIUM 2020-1 Yes [id number] Take 1 [facility] CHLORIDE 10 0-23 tablet by [facility]y of mEq CR 00:00: mouth once [place] tablet 00 daily Medical Branch PANTOPRAZOL 2020- Yes [id number] TAKE 1 [facility] 40 mg EC 0-23 TABLET BY [facility]y of tablet 00:00: MOUTH ONCE [place] 00 DAILY DO Medical NOT CRUSH Branch OR CHEW POTASSIUM 2020-1 Yes [id number] Take 1 [facility] CHLORIDE 10 0-23 tablet by [facility]y of mEq CR 00:00: mouth once [place] tablet 00 daily Medical Branch PANTOPRAZOL 2020- Yes [id number] TAKE 1 [facility] 40 mg EC 0-23 TABLET BY [facility]y of tablet 00:00: MOUTH ONCE [place] 00 DAILY DO Medical NOT CRUSH Branch OR CHEW POTASSIUM 2020-1 Yes [id number] Take 1 [facility] CHLORIDE 10 0-23 tablet by [facility] of mEq CR 00:00: mouth once [place] tablet 00 daily Medical Branch PANTOPRAZOL 2019- 2020- No [id number] TAKE 1 [facility] E 40 mg EC 0-23 11-18 TABLET BY [facility] of tablet 00:00: 00:00 MOUTH ONCE [place] 00 :00 DAILY DO Medical NOT CRUSH Branch OR CHEW POTASSIUM 2019- 2020- No [id number] Take 1 [facility] CHLORIDE 10 0-23 11-18 tablet by it y of mEq CR 00:00: 00:00 mouth once [place] tablet 00 :00 daily [facility] Branch gabapentin 2019- Yes [id number] 800mg Take 1 [facility] 800 mg 0-14 tablet by [facility]y of tablet 00:00: mouth (three) Medical times Branch daily. gabapentin 2020- Yes [id number] 800mg Take 1 [facility] 800 mg 0-14 tablet by ity of tablet 00:00: mouth (three) Medical times Branch daily. gabapentin 2020-1 Yes [id number] 800mg Take 1 [facility] 800 mg 0-14 tablet by ity of tablet 00:00: mouth (three) Medical times Branch daily. gabapentin 2020-1 Yes [id number] 800mg Take 1 [facility] 800 mg 0-14 tablet by ity of tablet 00:00: mouth (three) Medical times Branch daily. gabapentin 2020-1 Yes [id number] 800mg Take 1 [facility] 800 mg 0-14 tablet by [facility]y of tablet 00:00: mouth 3 (three) Medical times Branch daily. gabapentin 2020-1 Yes [id number] 800mg Take 1 [facility] 800 mg 0-14 tablet by [facility]y of tablet 00:00: mouth 3 (three) Medical times Branch daily. gabapentin 2020-1 Yes [id number] 800mg Take 1 [facility] 800 mg 0-14 tablet by [facility]y of tablet 00:00: mouth (three) Medical times Branch daily. gabapentin 2020-1 Yes [id number] 800mg Take 1 [facility] 800 mg 0-14 tablet by [facility]y of tablet 00:00: mouth 3 [place] 00 (three) Medical times Branch daily. gabapentin 2020-1 2020- No [id number] 800mg Take 1 [facility] 800 mg 0-14 11-16 tablet by ity of tablet 00:00: 00:00 mouth 3 [place] 00 :00 (three) Medical times Branch daily. FUROSEMIDE 2020-0 Yes [id number] Take 1 [facility] 20 mg 8-18 tablet by ity of tablet 00:00: mouth once daily Medical Branch FUROSEMIDE 2020-0 Yes [id number] Take 1 [facility] 20 mg 8-18 tablet by ity of tablet 00:00: mouth once daily Medical Branch FUROSEMIDE 2020-0 Yes [id number] Take 1 [facility] 20 mg 8-18 tablet by ity of tablet 00:00: mouth once [place] daily Medical Branch FUROSEMIDE 2020-0 Yes [id number] Take 1 [facility] 20 mg 8-18 tablet by ity of tablet 00:00: mouth once daily Medical Branch FUROSEMIDE 2020-0 Yes [id number] Take 1 [facility] 20 mg 8-18 tablet by ity of tablet 00:00: mouth once [place] daily Medical Branch FUROSEMIDE 2020-0 Yes [id number] Take 1 [facility] 20 mg 8-18 tablet by ity of tablet 00:00: mouth once [place] daily Medical Branch FUROSEMIDE 2020-0 Yes [id number] Take 1 [facility] 20 mg 8-18 tablet by ity of tablet 00:00: mouth once [place] daily Medical Branch FUROSEMIDE 2020-0 Yes [id number] Take 1 [facility] 20 mg 8-18 tablet by ity of tablet 00:00: mouth once [place] daily Medical Branch FUROSEMIDE 2020-0 Yes [id number] Take 1 [facility] 20 mg 8-18 tablet by ity of tablet 00:00: mouth once [place] daily Medical Branch FUROSEMIDE 2020-0 Yes [id number] Take 1 [facility] 20 mg 8-18 tablet by ity of tablet 00:00: mouth once [place] daily Medical Branch FUROSEMIDE 2020-0 Yes [id number] Take 1 [facility] 20 mg 8-18 tablet by ity of tablet 00:00: mouth once daily Medical Branch FUROSEMIDE 2020-0 Yes [id number] Take 1 [facility] 20 mg 8-18 tablet by ity of tablet 00:00: mouth once [place] 00 daily Medical Branch FUROSEMIDE 2020-0 2020- No [id number] Take 1 [facility] 20 mg 8-18 11-18 tablet by [facility] of tablet 00:00: 00:00 mouth once [place] 00 :00 daily [facility] fluconazole 2020-0 2020- No [id number] 150mg Take 1 [facility] 150 mg 8-14 08-15 tablet by [facility] of tablet 00:00: 04:59 mouth once [place] 00 :00 now for 1 Medical dose. Branch fluconazole 2020-0 2020- No [id number] 150mg Take 1 [facility] 150 mg 8-14 08-15 tablet by [facility] of tablet 00:00: 04:59 mouth once [place] 00 :00 now for 1 Medical dose. Branch gabapentin 2020-0 Yes [id number] 800mg Take 1 [facility] 800 mg 7-15 tablet by ity of tablet 00:00: mouth (three) Medical times Branch daily. gabapentin 2020-0 Yes [id number] 800mg Take 1 [facility] 800 mg 7-15 tablet by ity of tablet 00:00: mouth (three) Medical times Branch daily. gabapentin 2020-0 Yes [id number] 800mg Take 1 [facility] 800 mg 7-15 tablet by ity of tablet 00:00: mouth (three) Medical times Branch daily. gabapentin 2020-0 Yes [id number] 800mg Take 1 [facility] 800 mg 7-15 tablet by ity of tablet 00:00: mouth (three) Medical times Branch daily. gabapentin 2020-0 Yes [id number] 800mg Take 1 [facility] 800 mg 7-15 tablet by ity of tablet 00:00: mouth (three) Medical times Branch daily. gabapentin 2020-0 Yes [id number] 800mg Take 1 [facility] 800 mg 7-15 tablet by [facility]y of tablet 00:00: mouth 3 (three) Medical times Branch daily. gabapentin 2020-0 Yes [id number] 800mg Take 1 [facility] 800 mg 7-15 tablet by [facility]y of tablet 00:00: mouth 3 (three) Medical times Branch daily. gabapentin 2020-0 2020- No [id number] 800mg Take 1 [facility] 800 mg 7-15 10-14 tablet by [facility]y of tablet 00:00: 00:00 mouth 3 [place] 00 :00 (three) Medical times Branch daily. metFORMIN 2020-0 Yes 1000mg Take 2 [facility] ers 500 mg 7-09 tablets by [facility] tablet 00:00: mouth 2 (two) Medical times Branch daily with meals. pantoprazol 2020-0 Yes [id number] 40mg Take 1 [facility] 40 mg EC 7-09 tablet by [facility] of tablet 00:00: mouth 00 daily. Do Medical not Crush Branch or Chew DULOXETINE 2020-0 Yes [id number] Take 1 [facility] 30 mg 7-09 capsule by [facility] capsule 00:00: mouth once [place] 00 daily [facility] metFORMIN 2020-0 Yes 1000mg Take 2 [facility] 500 mg 7-09 tablets by [facility] of tablet 00:00: mouth 2 (two) Medical times Branch daily with meals. POTASSIUM 2020-0 Yes [id number] Take 1 [facility] CHLORIDE 10 7-09 tablet by [facility] of mEq CR 00:00: mouth once [place] tablet 00 daily Medical Branch pantoprazol 2020-0 Yes [id number] 40mg Take 1 [facility] e 40 mg EC 7-09 tablet by [facility] of tablet 00:00: mouth 00 daily. Do Medical not Crush Branch or Chew DULOXETINE 2020-0 Yes [id number] Take 1 [facility] 30 mg 7-09 capsule by [facility] capsule 00:00: mouth once [place] 00 daily Medical [facility] metFORMIN 2020-0 Yes 1000mg Take 2 [facility] 500 mg 7-09 tablets by ity of tablet 00:00: mouth (two) Medical times Branch daily with meals. POTASSIUM 2020-0 Yes [id number] Take 1 [facility] CHLORIDE 10 7-09 tablet by [facility] of mEq CR 00:00: mouth once [place] tablet 00 daily Medical Branch pantoprazol 2020-0 Yes [id number] 40mg Take 1 [facility] e 40 mg EC 7-09 tablet by [facility]y of tablet 00:00: mouth 00 daily. Do Medical not Crush Branch or Chew DULOXETINE 2020-0 Yes [id number] Take 1 [facility] 30 mg 7-09 capsule by [facility] capsule 00:00: mouth once [place] 00 daily Medical Branch metFORMIN 2020-0 Yes 1000mg Take 2 [facility] 500 mg 7-09 tablets by ity of tablet 00:00: mouth 2 (two) Medical times Branch daily with meals. POTASSIUM 2020-0 Yes [id number] Take 1 [facility] CHLORIDE 10 7-09 tablet by ity of mEq CR 00:00: mouth once [place] tablet 00 daily Medical Branch pantoprazol 2020-0 Yes [id number] 40mg Take 1 [facility] 40 mg EC 7-09 tablet by [facility]y of tablet 00:00: mouth [place] 00 daily. Do Medical not Crush Branch or Chew DULOXETINE 2020-0 Yes [id number] Take 1 [facility] 30 mg 7-09 capsule by [facility] capsule 00:00: mouth once [place] 00 daily Medical Branch metFORMIN 2020-0 Yes 1000mg Take 2 [facility] 500 mg 7-09 tablets by ity of tablet 00:00: mouth 2 (two) Medical times Branch daily with meals. POTASSIUM 2020-0 Yes [id number] Take 1 [facility] CHLORIDE 10 7-09 tablet by ity of mEq CR 00:00: mouth once [place] tablet 00 daily Medical Branch pantoprazol 2020-0 Yes [id number] 40mg Take 1 [facility] 40 mg EC 7-09 tablet by ity of tablet 00:00: mouth 00 daily. Do Medical not Crush Branch or Chew DULOXETINE 2020-0 Yes [id number] Take 1 [facility] 30 mg 7-09 capsule by [facility] capsule 00:00: mouth once [place] 00 daily Medical Branch metFORMIN 2020-0 Yes 1000mg Take 2 [facility] 500 mg 7-09 tablets by ity of tablet 00:00: mouth 2 (two) Medical times Branch daily with meals. POTASSIUM 2020-0 Yes [id number] Take 1 [facility] CHLORIDE 10 7-09 tablet by it[facility] of mEq CR 00:00: mouth once [place] tablet 00 daily Medical Branch pantoprazol 2020-0 Yes [id number] 40mg Take 1 [facility] 40 mg EC 7-09 tablet by [facility] of tablet 00:00: mouth [place] 00 daily. Do Medical not Crush Branch or Chew DULOXETINE 2020-0 Yes [id number] Take 1 [facility] 30 mg 7-09 capsule by [facility] capsule 00:00: mouth once [place] 00 daily Medical Branch metFORMIN 2020-0 Yes 1000mg Take 2 [facility] 500 mg 7-09 tablets by ity of tablet 00:00: mouth 2 (two) Medical times Branch daily with meals. POTASSIUM 2020-0 Yes [id number] Take 1 [facility] CHLORIDE 10 7-09 tablet by ity of mEq CR 00:00: mouth once [place] tablet 00 daily Medical Branch pantoprazol 2020-0 Yes [id number] 40mg Take 1 [facility] 40 mg EC 7-09 tablet by ity of tablet 00:00: mouth [place] 00 daily. Do Medical not Crush Branch or Chew DULOXETINE 2020-0 Yes [id number] Take 1 [facility] 30 mg 7-09 capsule by [facility] capsule 00:00: mouth once [place] 00 daily Medical Branch metFORMIN 2020-0 Yes 1000mg Take 2 [facility] 500 mg 7-09 tablets by ity of tablet 00:00: mouth 2 (two) Medical times Branch daily with meals. POTASSIUM 2020-0 Yes [id number] Take 1 [facility] CHLORIDE 10 7-09 tablet by ity of mEq CR 00:00: mouth once [place] tablet 00 daily Medical Branch pantoprazol 2020-0 Yes [id number] 40mg Take 1 [facility] 40 mg EC 7-09 tablet by ity of tablet 00:00: mouth 00 daily. Do Medical not Crush Branch or Chew DULOXETINE 2020-0 Yes [id number] Take 1 [facility] 30 mg 7-09 capsule by [facility] capsule 00:00: mouth once [place] 00 daily Medical Branch metFORMIN 2020-0 Yes 1000mg Take 2 [facility] 500 mg 7-09 tablets by ity of tablet 00:00: mouth (two) Medical times [place] daily with meals. POTASSIUM 2020-0 Yes [id number] Take 1 [facility] CHLORIDE 10 7-09 tablet by ity of mEq CR 00:00: mouth once [place] tablet 00 daily Medical Branch pantoprazol 2020-0 Yes [id number] 40mg Take 1 [facility] e 40 mg EC 7-09 tablet by ity of tablet 00:00: mouth [place] 00 daily. Do Medical not Crush Branch or Chew DULOXETINE 2020-0 Yes [id number] Take 1 [facility] 30 mg 7-09 capsule by [facility] of capsule 00:00: mouth once [place] 00 daily Medical Branch metFORMIN 2020-0 Yes 1000mg Take 2 [facility] 500 mg 7-09 tablets by ity of tablet 00:00: mouth 2 (two) Medical times [place] daily with meals. POTASSIUM 2020-0 Yes [id number] Take 1 [facility] CHLORIDE 10 7-09 tablet by ity of mEq CR 00:00: mouth once [place] tablet 00 daily Medical Branch DULOXETINE 2020-0 Yes [id number] Take 1 [facility] 30 mg 7-09 capsule by [facility] of capsule 00:00: mouth once [place] 00 daily Medical Branch metFORMIN 2020-0 Yes 1000mg Take 2 [facility] 500 mg 7-09 tablets by ity of tablet 00:00: mouth [place] (two) Medical times Branch daily with meals. DULOXETINE 2020-0 Yes [id number] Take 1 [facility] 30 mg 7-09 capsule by [facility] of capsule 00:00: mouth once [place] 00 daily Medical Branch metFORMIN 2020-0 Yes 1000mg Take 2 [facility] 500 mg 7-09 tablets by ity of tablet 00:00: mouth 2 [place] (two) Medical times Branch daily with meals. DULOXETINE 2020-0 Yes [id number] Take 1 [facility] 30 mg 7-09 capsule by [facility] of capsule 00:00: mouth once [place] 00 daily Medical Branch metFORMIN 2020-0 Yes 1000mg Take 2 [facility] 500 mg 7-09 tablets by ity of tablet 00:00: mouth 2 [place] (two) Medical times Branch daily with meals. DULOXETINE 2020-0 Yes [id number] Take 1 [facility] 30 mg 7-09 capsule by [facility] of capsule 00:00: mouth once [place] 00 daily Medical Branch metFORMIN 2020-0 Yes 1000mg Take 2 [facility] 500 mg 7-09 tablets by ity of tablet 00:00: mouth [place] ([facility]) Medical times Branch daily with meals. DULOXETINE 2020-0 Yes [id number] Take 1 [facility] 30 mg 7-09 capsule by [facility] of capsule 00:00: mouth once [place] 00 daily Medical Branch metFORMIN 2020-0 Yes 1000mg Take 2 [facility] 500 mg 7-09 tablets by ity of tablet 00:00: mouth [place] ([facility]) Medical times Branch daily with meals. DULOXETINE 2020-0 Yes [id number] Take 1 [facility] 30 mg 7-09 capsule by [facility] of capsule 00:00: mouth once [place] 00 daily Medical Branch metFORMIN 2020-0 Yes 1000mg Take 2 [facility] 500 mg 7-09 tablets by ity of tablet 00:00: mouth [place] ([facility]) Medical times Branch daily with meals. DULOXETINE 2020-0 Yes [id number] Take 1 [facility] 30 mg 7-09 capsule by [facility] of capsule 00:00: mouth once [place] 00 daily Medical Branch metFORMIN 2020-0 Yes 1000mg Take 2 [facility] 500 mg 7-09 tablets by ity of tablet 00:00: mouth 2 [place] (two) Medical times Branch daily with meals. DULOXETINE 2020-0 Yes [id number] Take 1 [facility] 30 mg 7-09 capsule by [facility] of capsule 00:00: mouth once [place] daily Medical Branch metFORMIN 2020-0 Yes 1000mg Take 2 [facility] 500 mg 7-09 tablets by ity of tablet 00:00: mouth 2 [place] (two) Medical times Branch daily with meals. DULOXETINE 2020-0 Yes [id number] Take 1 [facility] 30 mg 7-09 capsule by [facility] of capsule 00:00: mouth once [place] daily Medical Branch metFORMIN 2020-0 Yes 1000mg Take 2 [facility] 500 mg 7-09 tablets by ity of tablet 00:00: mouth 2 [place] (two) Medical times Branch daily with meals. DULOXETINE 2020-0 Yes [id number] Take 1 [facility] 30 mg 7-09 capsule by [facility] of capsule 00:00: mouth once [place] daily Medical Branch metFORMIN 2020-0 Yes 1000mg Take 2 [facility] 500 mg 7-09 tablets by ity of tablet 00:00: mouth 2 [place] ([facility]) Medical times Branch daily with meals. DULOXETINE 2020-0 Yes [id number] Take 1 [facility] 30 mg 7-09 capsule by [facility] of capsule 00:00: mouth once [place] daily Medical Branch metFORMIN 2020-0 Yes 1000mg Take 2 [facility] 500 mg 7-09 tablets by ity of tablet 00:00: mouth [place] ([facility]) Medical times Branch daily with meals. DULOXETINE 2020-0 Yes [id number] Take 1 [facility] 30 mg 7-09 capsule by [facility] of capsule 00:00: mouth once [place] 00 daily Medical Branch metFORMIN 2020-0 Yes 1000mg Take 2 [facility] 500 mg 7-09 tablets by ity of tablet 00:00: mouth 2 [place] (two) Medical times Branch daily with meals. DULOXETINE 2020-0 Yes [id number] Take 1 [facility] 30 mg 7-09 capsule by ity of capsule 00:00: mouth once [place] 00 daily Medical Branch metFORMIN 2020-0 Yes 1000mg Take 2 [facility] ers 500 mg 7-09 tablets by ity of tablet 00:00: mouth 2 [place] (two) Medical times Branch daily with meals. DULOXETINE 2020-0 Yes [id number] Take 1 [facility] 30 mg 7-09 capsule by [facility] of capsule 00:00: mouth once [place] 00 daily Medical Branch metFORMIN 2020-0 Yes 1000mg Take 2 [facility] ers 500 mg 7-09 tablets by ity of tablet 00:00: mouth [place] (two) Medical times Branch daily with meals. metFORMIN 2020-0 Yes 1000mg Take 2 [facility] 500 mg 7-09 tablets by ity of tablet 00:00: mouth [place] (two) Medical times Branch daily with meals. metFORMIN 2020-0 Yes 1000mg Take 2 [facility] ers 500 mg 7-09 tablets by ity of tablet 00:00: mouth [place] (two) Medical times Branch daily with meals. metFORMIN 2020-0 Yes 1000mg Take 2 [facility] 500 mg 7-09 tablets by ity of tablet 00:00: mouth [place] (two) Medical times Branch daily with meals. metFORMIN 2020-0 Yes 1000mg Take 2 [facility] 500 mg 7-09 tablets by ity of tablet 00:00: mouth [place] (two) Medical times Branch daily with meals. metFORMIN 2020-0 Yes 1000mg Take 2 [facility] 500 mg 7-09 tablets by ity of tablet 00:00: mouth [place] (two) Medical times Branch daily with meals. metFORMIN 2020-0 Yes 1000mg Take 2 [facility] ers 500 mg 7-09 tablets by ity of tablet 00:00: mouth [place] ([facility]) Medical times Branch daily with meals. metFORMIN 2020-0 Yes 1000mg Take 2 [facility] ers 500 mg 7-09 tablets by ity of tablet 00:00: mouth [place] (two) Medical times Branch daily with meals. metFORMIN 2020-0 Yes 1000mg Take 2 [facility] 500 mg 7-09 tablets by ity of tablet 00:00: mouth [place] (two) Medical times Branch daily with meals. metFORMIN 2020-0 Yes 1000mg Take 2 [facility] ers 500 mg 7-09 tablets by ity of tablet 00:00: mouth [place] ([facility]) Medical times Branch daily with meals. metFORMIN 2020-0 2021- No 1000mg Take 2 [facility] vers 500 mg 7-09 03-09 tablets by ity of tablet 00:00: 00:00 mouth 2 [place] 00 :00 (two) Medical times Branch daily with meals. DULOXETINE 2020-0 2020- No [id number] Take 1 [facility] 30 mg 7-09 12-19 capsule by ity of capsule 00:00: 00:00 mouth once [place] 00 :00 daily Medical Branch DULOXETINE 2020-0 2020- No [id number] Take 1 [facility] 30 mg 12-04 capsule by ity of capsule 00:00: 00:00 mouth once [place] 00 :00 daily Medical Branch pantoprazol 2020-0 2020- No [id number] 40mg Take 1 [facility] e 40 mg EC 12-04 tablet by ity of tablet 00:00: 00:00 mouth [place] 00 :00 daily. Do Medical not Crush Branch or Chew POTASSIUM 2020-0 2020- No [id number] Take 1 [facility] CHLORIDE 10 12-04 tablet by it y of mEq CR 00:00: 00:00 mouth once [place] tablet 00 :00 daily Medical Branch PANTOPRAZOL 2020-0 Yes [id number] Take 1 [facility] E 40 mg EC 6-08 tablet by ity of tablet 00:00: mouth once [place] 00 daily Medical Branch POTASSIUM 2020-0 Yes [id number] Take 1 [facility] CHLORIDE 10 6-08 tablet by ity of mEq CR 00:00: mouth once [place] tablet 00 daily Medical Branch PANTOPRAZOL 2020-0 Yes [id number] Take 1 [facility] E 40 mg EC 6-08 tablet by ity of tablet 00:00: mouth once [place] 00 daily Medical Branch POTASSIUM 2020-0 Yes [id number] Take 1 [facility] CHLORIDE 10 6-08 [...] 33 daily. Medical Branch GABAPENTIN 2020-0 Yes [id number] TAKE 1 [facility] 800 mg 5-05 TABLET BY ity of tablet 00:00: MOUTH [place] 00 THREE Medical TIMES Branch DAILY GABAPENTIN 2020-0 Yes [id number] TAKE 1 [facility] 800 mg 5-05 TABLET BY ity of tablet 00:00: [facility] TIMES Branch DAILY GABAPENTIN 2020-0 Yes [id number] TAKE 1 [facility] 800 mg 5-05 TABLET BY ity of tablet 00:00: [facility] TIMES Branch DAILY GABAPENTIN 2020-0 Yes [id number] TAKE 1 [facility] 800 mg 5-05 TABLET BY ity of tablet 00:00: [facility] Medical TIMES Branch DAILY GABAPENTIN 2020-0 Yes [id number] TAKE 1 [facility] 800 mg 5-05 TABLET BY ity of tablet 00:00: [facility] Medical TIMES Branch DAILY GABAPENTIN 2020-0 Yes [id number] TAKE 1 [facility] 800 mg 5-05 TABLET BY ity of tablet 00:00: [facility] TIMES Branch DAILY GABAPENTIN 2020-0 Yes [id number] TAKE 1 [facility] 800 mg 5-05 TABLET BY ity of tablet 00:00: [facility] TIMES Branch DAILY GABAPENTIN 2020-0 Yes [id number] TAKE 1 [facility] 800 mg 5-05 TABLET BY ity of tablet 00:00: [facility] TIMES Branch DAILY GABAPENTIN 2020-0 Yes [id number] TAKE 1 [facility] 800 mg 5-05 TABLET BY ity of tablet 00:00: [facility] TIMES Branch DAILY GABAPENTIN 2020-0 Yes [id number] TAKE 1 [facility] 800 mg 5-05 TABLET BY ity of tablet 00:00: [address] TIMES [place] DAILY GABAPENTIN 2020-0 2020- No [id number] TAKE 1 [facility] 800 mg 5-05 07-15 TABLET BY ity of tablet 00:00: 00:00 [facility] 00 :00 [facility] TIMES Branch DAILY metoprolol 2020-0 Yes 100mg 100 mg, Uni vers succinate 3-21 Oral, ity of XL (TOPROL 14:00: DAILY, [place] XL) tablet 00 First dose Med ical 100 mg on [facility] Branch 08/17/19 at 0900, Until Discontinu ed, [...] Until Discontinu ed, Routine metoprolol 2020-0 Yes [id number] 100mg Take 1 [facility] succinate 3-21 07 tablet by ity o f XL 100 mg 00:00: mouth [place] 24 hr 00 daily. Medical tablet [place] azithromyci 2020-0 Yes [id number] 250mg Take 1 [facility] n 250 mg 3-21 07 tablet by ity of tablet 00:00: mouth [place] 00 daily. Medical Take 250 Branch mg tablet once daily metoprolol 2020-0 Yes [id number] 100mg Take 1 [facility] succinate 3-21 07 tablet by ity o f XL 100 mg 00:00: mouth [place] 24 hr 00 daily. Medical tablet [place] azithromyci 2020-0 Yes [id number] 250mg Take 1 [facility] n 250 mg 3-21 07 tablet by ity of tablet 00:00: mouth [place] 00 daily. Medical Take 250 Branch mg tablet once daily metoprolol 2020-0 Yes [id number] 100mg Take 1 [facility] succinate 3-21 07 tablet by ity o f XL 100 mg 00:00: mouth [place] 24 hr 00 daily. Medical tablet [place] azithromyci 2020-0 Yes [id number] 250mg Take 1 [facility] n 250 mg 3-21 07 tablet by ity of tablet 00:00: mouth [place] 00 daily. Medical Take 250 Branch mg tablet once daily metoprolol 2020-0 Yes [id number] 100mg Take 1 [facility] succinate 3-21 07 tablet by ity o f XL 100 mg 00:00: mouth [place] 24 hr 00 daily. Medical tablet [place] azithromyci 2020-0 Yes [id number] 250mg Take 1 [facility] n 250 mg 3-21 07 tablet by ity of tablet 00:00: mouth [place] 00 daily. Medical Take 250 Branch mg tablet once daily metoprolol 2020-0 Yes [id number] 100mg Take 1 [facility] succinate 3-21 07 tablet by ity o f XL 100 mg 00:00: mouth [place] 24 hr 00 daily. Medical tablet [place] azithromyci 2020-0 Yes [id number] 250mg Take 1 [facility] n 250 mg 3-21 07 tablet by ity of tablet 00:00: mouth [place] 00 daily. Medical Take 250 Branch mg tablet once daily metoprolol 2020-0 Yes [id number] 100mg Take 1 [facility] succinate 3-21 07 tablet by ity o f XL 100 mg 00:00: mouth [place] 24 hr 00 daily. Medical tablet Branch azithromyci 2020-0 Yes [id number] 250mg Take 1 [facility] n 250 mg 3-21 07 tablet by ity of tablet 00:00: mouth [place] 00 daily. Medical Take 250 Branch mg tablet once daily metoprolol 2020-0 Yes [id number] 100mg Take 1 [facility] succinate 3-21 07 tablet by ity o f XL 100 mg 00:00: mouth [place] 24 hr 00 daily. Medical tablet Branch azithromyci 2020-0 Yes [id number] 250mg Take 1 [facility] n 250 mg 3-21 07 tablet by ity of tablet 00:00: mouth [place] 00 daily. Medical Take 250 Branch mg tablet once daily metoprolol 2020-0 Yes [id number] 100mg Take 1 [facility] succinate 3-21 07 tablet by ity o f XL 100 mg 00:00: mouth [place] 24 hr 00 daily. Medical tablet Branch azithromyci 2020-0 Yes [id number] 250mg Take 1 [facility] n 250 mg 3-21 07 tablet by ity of tablet 00:00: mouth [place] 00 daily. Medical Take 250 Branch mg tablet once daily metoprolol 2020-0 Yes [id number] 100mg Take 1 [facility] succinate 3-21 07 tablet by ity o f XL 100 mg 00:00: mouth [place] 24 hr 00 daily. Medical tablet Branch azithromyci 2020-0 Yes [id number] 250mg Take 1 [facility] n 250 mg 3-21 07 tablet by ity of tablet 00:00: mouth [place] 00 daily. Medical Take 250 Branch mg tablet once daily metoprolol 2020-0 Yes [id number] 100mg Take 1 [facility] succinate 3-21 07 tablet by ity o f XL 100 mg 00:00: mouth [place] 24 hr 00 daily. Medical tablet Branch azithromyci 2020-0 Yes [id number] 250mg Take 1 [facility] n 250 mg 3-21 07 tablet by ity of tablet 00:00: mouth [place] 00 daily. Medical Take 250 Branch mg tablet once daily metoprolol 2020-0 Yes [id number] 100mg Take 1 [facility] succinate 3-21 07 tablet by ity o f XL 100 mg 00:00: mouth [place] 24 hr 00 daily. Medical tablet Branch azithromyci 2020-0 Yes [id number] 250mg Take 1 [facility] n 250 mg 3-21 07 tablet by ity of tablet 00:00: mouth [place] 00 daily. Medical Take 250 Branch mg tablet once daily metoprolol 2020-0 Yes [id number] 100mg Take 1 [facility] succinate 3-21 07 tablet by ity o f XL 100 mg 00:00: mouth [place] 24 hr 00 daily. Medical tablet Branch azithromyci 2020-0 Yes [id number] 250mg Take 1 [facility] n 250 mg 3-21 07 tablet by ity of tablet 00:00: mouth [place] 00 daily. Medical Take 250 Branch mg tablet once daily metoprolol 2020-0 Yes [id number] 100mg Take 1 [facility] succinate 3-21 07 tablet by ity o f XL 100 mg 00:00: mouth [place] 24 hr 00 daily. Medical tablet Branch azithromyci 2020-0 Yes [id number] 250mg Take 1 [facility] n 250 mg 3-21 07 tablet by ity of tablet 00:00: mouth [place] 00 daily. Medical Take 250 Branch mg tablet once daily metoprolol 2020-0 Yes [id number] 100mg Take 1 [facility] succinate 3-21 07 tablet by ity o f XL 100 mg 00:00: mouth [place] 24 hr 00 daily. Medical tablet Branch azithromyci 2020-0 Yes [id number] 250mg Take 1 [facility] n 250 mg 3-21 07 tablet by ity of tablet 00:00: mouth [place] 00 daily. Medical Take 250 Branch mg tablet once daily metoprolol 2020-0 Yes [id number] 100mg Take 1 [facility] succinate 3-21 tablet by ity o f XL 100 mg 00:00: mouth [place] 24 hr 00 daily. Medical tablet Branch azithromyci 2020-0 Yes [id number] 250mg Take 1 [facility] n 250 mg 3-21 tablet by ity of tablet 00:00: mouth [place] 00 daily. Medical Take 250 Branch mg tablet once daily metoprolol 2020-0 Yes [id number] 100mg Take 1 [facility] succinate 3-21 tablet by ity o f XL 100 mg 00:00: mouth [place] 24 hr 00 daily. Medical tablet Branch azithromyci 2020-0 Yes [id number] 250mg Take 1 [facility] n 250 mg 3-21 tablet by ity of tablet 00:00: mouth [place] 00 daily. Medical Take 250 Branch mg tablet once daily metoprolol 2020-0 Yes [id number] 100mg Take 1 [facility] succinate 3-21 tablet by ity o f XL 100 mg 00:00: mouth [place] 24 hr 00 daily. Medical tablet Branch azithromyci 2020-0 Yes [id number] 250mg Take 1 [facility] n 250 mg 3-21 tablet by ity of tablet 00:00: mouth [place] 00 daily. Medical Take 250 Branch mg tablet once daily metoprolol 2020-0 Yes [id number] 100mg Take 1 [facility] succinate 3-21 tablet by ity o f XL 100 mg 00:00: mouth [place] 24 hr 00 daily. Medical tablet Branch metoprolol 2020-0 Yes [id number] 100mg Take 1 [facility] succinate 3-21 tablet by ity o f XL 100 mg 00:00: mouth [place] 24 hr 00 daily. Medical tablet Branch metoprolol 2020-0 Yes [id number] 100mg Take 1 [facility] succinate 3-21 tablet by ity o f XL 100 mg 00:00: mouth [place] 24 hr 00 daily. Medical tablet Branch metoprolol 2020-0 Yes [id number] 100mg Take 1 [facility] succinate 3-21 tablet by ity o f XL 100 mg 00:00: mouth [place] 24 hr 00 daily. Medical tablet Branch metoprolol 2020-0 Yes [id number] 100mg Take 1 [facility] succinate 3-21 tablet by ity o f XL 100 mg 00:00: mouth [place] 24 hr 00 daily. Medical tablet Branch metoprolol 2020-0 Yes [id number] 100mg Take 1 [facility] succinate 3-21 tablet by ity o f XL 100 mg 00:00: mouth [place] 24 hr 00 daily. Medical tablet Branch metoprolol 2020-0 Yes [id number] 100mg Take 1 [facility] succinate 3-21 tablet by ity o f XL 100 mg 00:00: mouth [place] 24 hr 00 daily. Medical tablet Branch metoprolol 2020-0 Yes [id number] 100mg Take 1 [facility] succinate 3-21 tablet by ity o f XL 100 mg 00:00: mouth [place] 24 hr 00 daily. Medical tablet Branch metoprolol 2020-0 Yes [id number] 100mg Take 1 [facility] succinate 3-21 tablet by ity o f XL 100 mg 00:00: mouth [place] 24 hr 00 daily. Medical tablet Branch metoprolol 2020-0 Yes [id number] 100mg Take 1 [facility] succinate 3-21 tablet by ity o f XL 100 mg 00:00: mouth [place] 24 hr 00 daily. Medical tablet Branch metoprolol 2020-0 Yes [id number] 100mg Take 1 [facility] succinate 3-21 tablet by ity o f XL 100 mg 00:00: mouth [place] 24 hr 00 daily. Medical tablet Branch metoprolol 2020-0 Yes [id number] 100mg Take 1 [facility] succinate 3-21 tablet by ity o f XL 100 mg 00:00: mouth [place] 24 hr 00 daily. Medical tablet Branch metoprolol 2020-0 Yes [id number] 100mg Take 1 [facility] succinate 3-21 tablet by ity o f XL 100 mg 00:00: mouth [place] 24 hr 00 daily. Medical tablet Branch metoprolol 2020-0 Yes [id number] 100mg Take 1 [facility] succinate 3-21 tablet by ity o f XL 100 mg 00:00: mouth [place] 24 hr 00 daily. Medical tablet Branch metoprolol 2020-0 Yes [id number] 100mg Take 1 [facility] succinate 3-21 tablet by ity o f XL 100 mg 00:00: mouth [place] 24 hr 00 daily. Medical tablet Branch metoprolol 2020-0 Yes [id number] 100mg Take 1 [facility] succinate 3-21 tablet by ity o f XL 100 mg 00:00: mouth [place] 24 hr 00 daily. Medical tablet Branch metoprolol 2020-0 Yes [id number] 100mg Take 1 [facility] succinate 3-21 tablet by ity o f XL 100 mg 00:00: mouth [place] 24 hr 00 daily. Medical tablet Branch metoprolol 2020-0 Yes [id number] 100mg Take 1 [facility] succinate 3-21 tablet by ity o f XL 100 mg 00:00: mouth [place] 24 hr 00 daily. Medical tablet Branch metoprolol 2020-0 Yes [id number] 100mg Take 1 [facility] succinate 3-21 tablet by ity o f XL 100 mg 00:00: mouth [place] 24 hr 00 daily. Medical tablet Branch metoprolol 2020-0 Yes [id number] 100mg Take 1 [facility] succinate 3-21 tablet by ity o f XL 100 mg 00:00: mouth [place] 24 hr 00 daily. Medical tablet Branch metoprolol 2020-0 Yes [id number] 100mg Take 1 [facility] succinate 3-21 tablet by ity o f XL 100 mg 00:00: mouth [place] 24 hr 00 daily. Medical tablet Branch metoprolol 2020-0 Yes [id number] 100mg Take 1 [facility] succinate 3-21 tablet by ity o f XL 100 mg 00:00: mouth [place] 24 hr 00 daily. Medical tablet Branch metoprolol 2020-0 Yes [id number] 100mg Take 1 [facility] succinate 3-21 tablet by ity o f XL 100 mg 00:00: mouth [place] 24 hr 00 daily. Medical tablet Branch metoprolol 2020-0 Yes [id number] 100mg Take 1 [facility] succinate 3-21 tablet by ity o f XL 100 mg 00:00: mouth [place] 24 hr 00 daily. Medical tablet Branch metoprolol 2020-0 Yes [id number] 100mg Take 1 [facility] succinate 3-21 tablet by ity o f XL 100 mg 00:00: mouth [place] 24 hr 00 daily. Medical tablet Branch metoprolol 2020-0 Yes [id number] 100mg Take 1 [facility] succinate 3-21 07 tablet by ity o f XL 100 mg 00:00: mouth [place] 24 hr 00 daily. Medical tablet Branch azithromyci 2020-0 Yes [id number] 250mg Take 1 [facility] n 250 mg 3-21 07 tablet by ity of tablet 00:00: mouth [place] 00 daily. Medical Take 250 Branch mg tablet once daily metoprolol 2020-0 Yes [id number] 100mg Take 1 [facility] succinate 3-21 07 tablet by ity o f XL 100 mg 00:00: mouth [place] 24 hr 00 daily. Medical tablet Branch azithromyci 2020-0 Yes [id number] 250mg Take 1 [facility] n 250 mg 3-21 07 tablet by ity of tablet 00:00: mouth [place] 00 daily. Medical Take 250 Branch mg tablet once daily metoprolol 2020-0 2020- No [id number] 100mg Take 1 Univers succinate 3-21 01-11 tablet by ity of XL 100 mg 00:00: 00:00 mouth [place] 24 hr 00 :00 daily. Medical tablet Branch azithromyci 2020-0 2019- No [id number] 250mg Take 1 Univers n 250 mg 3-21 08-14 tablet by ity o f tablet 00:00: 00:00 mouth [place] 00 :00 daily. Medical Take 250 Branch mg tablet once daily azithromyci 2020-0 2019- No [id number] 250mg Take 1 Univers n 250 mg [...] of tablet 16:51: mouth [place] 31 daily. [facility] aspirin 81 2020-0 Yes 81mg Take 1 Unive rs mg chewable 3-20 tablet by ity of tablet 16:51: mouth [place] 31 daily. [facility] aspirin 81 2020-0 Yes 81mg Take 1 Unive rs mg chewable 3-20 tablet by ity of tablet 16:51: mouth [place] 31 daily. [facility] aspirin 81 2020-0 Yes 81mg Take 1 Unive rs mg chewable 3-20 tablet by ity of tablet 16:51: mouth [place] 31 daily. [facility] aspirin 81 2020-0 Yes 81mg Take 1 Unive rs mg chewable 3-20 tablet by ity of tablet 16:51: mouth [place] 31 daily. [facility] aspirin 81 2020-0 Yes 81mg Take 1 Unive rs mg chewable 3-20 tablet by ity of tablet 16:51: mouth [place] 31 daily. [facility] aspirin 81 2020-0 Yes 81mg Take 1 Unive rs mg chewable 3-20 tablet by ity of tablet 16:51: mouth [place] 31 daily. [facility] aspirin 81 2020-0 Yes 81mg Take 1 Unive rs mg chewable 3-20 tablet by ity of tablet 16:51: mouth [place] 31 daily. [facility] aspirin 81 2020-0 Yes 81mg Take 1 Unive rs mg chewable 3-20 tablet by ity of tablet 16:51: mouth [place] 31 daily. [facility] aspirin 2020-0 2020- No 81mg Take 81 mg Uni vers (ASPIRIN 3-20 -20 by mouth ity of LOW DOSE) 16:51: 00:00 daily. [place] 81 mg EC 31 :[address] [facility] Branch LORazepam 2019-0 2020- No 1mg 1 mg, Univer s (ATIVAN) 3-20 - Oral, ity of tablet 1 mg 00:30: 23:58 ONCE, 1 [place] 00 :00 dose, [facility] 08/15/19 at Branch 1930, Routine clopidogreL 2019-0 Yes [id number] 75mg Take 1 Univers (PLAVIX) 75 3-20 tablet by ity of mg tablet 00:00: mouth [place] 00 daily. [facility] insulin NPH 2019-0 Yes [id number] Inject 84 Univers and regular 3-20 units AM, ity of human 70-30 00:00: 84 units [place] (NOVOLIN 00 PM Medical 70/30 U-100 [place] INSULIN) 100 unit/mL (70-30) injection atorvastati 2019-0 Yes [id number] 80mg Take 1 [facility] n 80 mg 3-20 07 tablet by ity of tablet 00:00: mouth at [place] 00 bedtime. [facility] clopidogreL 2019-0 Yes [id number] 75mg Take 1 Univers (PLAVIX) 75 3-20 tablet by ity of mg tablet 00:00: mouth [place] daily. [facility] insulin NPH 2019-0 Yes [id number] Inject 84 Univers and regular 3-20 units AM, ity of human 70-30 00:00: 84 units [place] (NOVOLIN 00 PM Medical 70/30 U-100 [place] INSULIN) 100 unit/mL (70-30) injection atorvastati 2019-0 Yes [id number] 80mg Take 1 [facility] n 80 mg 3-20 07 tablet by ity of tablet 00:00: mouth at [place] 00 bedtime. [facility] clopidogreL 2020-0 Yes [id number] 75mg Take 1 Univers (PLAVIX) 75 3-20 tablet by ity of mg tablet 00:00: mouth [place] 00 daily. [facility] insulin NPH 2019-0 Yes [id number] Inject 84 Univers and regular 3-20 units AM, ity of human 70-30 00:00: 84 units [place] (NOVOLIN 00 PM Medical 70/30 U-100 [place] INSULIN) 100 unit/mL (70-30) injection atorvastati 2019-0 Yes [id number] 80mg Take 1 [facility] n 80 mg 3-20 07 tablet by ity of tablet 00:00: mouth at [place] bedtime. Medical Branch clopidogreL 2020-0 Yes [id number] 75mg Take 1 Univers (PLAVIX) 75 3-20 tablet by ity of mg tablet 00:00: mouth [place] 00 daily. [facility] Branch insulin NPH 2020-0 Yes [id number] Inject 84 Univers and regular 3-20 units AM, ity of human 7030 00:00: 84 units [place] (NOVOLIN 00 PM Medical 70/30 U-100 Branch INSULIN) 100 unit/mL (70-30) injection atorvastati 2020-0 Yes [id number] 80mg Take 1 [facility] n 80 mg 3-20 07 tablet by ity of tablet 00:00: mouth at [place] 00 bedtime. [facility] Branch clopidogreL 2020-0 Yes [id number] 75mg Take 1 Univers (PLAVIX) 75 3-20 tablet by ity of mg tablet 00:00: mouth 00 daily. [facility] Branch insulin NPH 2019-0 Yes [id number] Inject 84 Univers and regular 3-20 units AM, ity of human 00:00: 84 units [place] (NOVOLIN 00 PM Medical 70/30 U-100 Branch INSULIN) 100 unit/mL (70-30) injection atorvastati 2020-0 Yes [id number] 80mg Take 1 [facility] n 80 mg 3-20 07 tablet by ity of tablet 00:00: mouth at bedtime. [facility] clopidogreL 2020-0 Yes [id number] 75mg Take 1 Univers (PLAVIX) 75 3-20 tablet by ity of mg tablet 00:00: mouth daily. [facility] insulin NPH 2020-0 Yes [id number] Inject 84 Univers and regular 3-20 units AM, ity of human 7030 00:00: 84 units [place] (NOVOLIN 00 PM Medical 70/30 U-100 Branch INSULIN) 100 unit/mL (70-30) injection atorvastati 2020-0 Yes [id number] 80mg Take 1 Univers n 80 mg 3-20 07 tablet by ity of tablet 00:00: mouth at [place] 00 bedtime. [facility] clopidogreL 2020-0 Yes [id number] 75mg Take 1 Univers (PLAVIX) 75 3-20 tablet by ity of mg tablet 00:00: mouth [place] 00 daily. [facility] Branch insulin NPH 2020-0 Yes [id number] Inject 84 Univers and regular 3-20 units AM, ity of human 7030 00:00: 84 units [place] (NOVOLIN 00 PM Medical 70/30 U-100 Branch INSULIN) 100 unit/mL (70-30) injection atorvastati 2020-0 Yes [id number] 80mg Take 1 [facility] n 80 mg 3-20 07 tablet by ity of tablet 00:00: mouth at [place] 00 bedtime. Medical Branch clopidogreL 2020-0 Yes [id number] 75mg Take 1 Univers (PLAVIX) 75 3-20 tablet by ity of mg tablet 00:00: mouth [place] 00 daily. Medical Branch insulin NPH 2019-0 Yes [id number] Inject 84 Univers and regular 3-20 units AM, ity of human 7030 00:00: 84 units [place] (NOVOLIN 00 PM Medical 70/30 U-100 Branch INSULIN) 100 unit/mL (70-30) injection atorvastati 2019-0 Yes [id number] 80mg Take 1 [facility] n 80 mg 3-20 07 tablet by ity of tablet 00:00: mouth at [place] 00 bedtime. Medical Branch clopidogreL 2020-0 Yes [id number] 75mg Take 1 Univers (PLAVIX) 75 3-20 tablet by ity of mg tablet 00:00: mouth [place] 00 daily. Medical Branch insulin NPH 2019-0 Yes [id number] Inject 84 Univers and regular 3-20 units AM, ity of human 7030 00:00: 84 units [place] (NOVOLIN 00 PM Medical 70/30 U-100 Branch INSULIN) 100 unit/mL (70-30) injection atorvastati 2019-0 Yes [id number] 80mg Take 1 [facility] n 80 mg 3-20 07 tablet by ity of tablet 00:00: mouth at [place] 00 bedtime. Medical Branch clopidogreL 2020-0 Yes [id number] 75mg Take 1 Univers (PLAVIX) 75 3-20 tablet by ity of mg tablet 00:00: mouth [place] 00 daily. Medical Branch insulin NPH 2019-0 Yes [id number] Inject 84 Univers and regular 3-20 units AM, ity of human 70-30 00:00: 84 units [place] (NOVOLIN 00 PM Medical 70/30 U-100 Branch INSULIN) 100 unit/mL (70-30) injection atorvastati 2020-0 Yes [id number] 80mg Take 1 [facility] n 80 mg 3-20 07 tablet by ity of tablet 00:00: mouth at [place] 00 bedtime. Medical Branch clopidogreL 2020-0 Yes [id number] 75mg Take 1 Univers (PLAVIX) 75 3-20 tablet by ity of mg tablet 00:00: mouth [place] 00 daily. Medical Branch insulin NPH 2020-0 Yes [id number] Inject 84 Univers and regular 3-20 units AM, ity of human 70-30 00:00: 84 units [place] (NOVOLIN 00 PM Medical 70/30 U-100 Branch INSULIN) 100 unit/mL (70-30) injection atorvastati 2020-0 Yes [id number] 80mg Take 1 [facility] n 80 mg 3-20 07 tablet by ity of tablet 00:00: mouth at [place] 00 bedtime. [facility] Branch clopidogreL 2020-0 Yes [id number] 75mg Take 1 Univers (PLAVIX) 75 3-20 tablet by ity of mg tablet 00:00: mouth [place] 00 daily. [facility] Branch insulin NPH 2019-0 Yes [id number] Inject 84 Univers and regular 3-20 units AM, ity of human 00:00: 84 units [place] (NOVOLIN 00 PM Medical 70/30 U-100 Branch INSULIN) 100 unit/mL (70-30) injection atorvastati 2020-0 Yes [id number] 80mg Take 1 [facility] n 80 mg 3-20 07 tablet by ity of tablet 00:00: mouth at [place] 00 bedtime. [facility] Branch clopidogreL 2020-0 Yes [id number] 75mg Take 1 Univers (PLAVIX) 75 3-20 tablet by ity of mg tablet 00:00: mouth 00 daily. [facility] Branch insulin NPH 2019-0 Yes [id number] Inject 84 Univers and regular 3-20 units AM, ity of human 70-30 00:00: 84 units [place] (NOVOLIN 00 PM Medical 70/30 U-100 Branch INSULIN) 100 unit/mL (70-30) injection atorvastati 2020-0 Yes [id number] 80mg Take 1 Univers n 80 mg 3-20 07 tablet by ity of tablet 00:00: mouth at [place] 00 bedtime. [facility] Branch clopidogreL 2020-0 Yes [id number] 75mg Take 1 Univers (PLAVIX) 75 3-20 tablet by ity of mg tablet 00:00: mouth [place] 00 daily. [facility] Branch insulin NPH 2019-0 Yes [id number] Inject 84 Univers and regular 3-20 units AM, ity of human 70-30 00:00: 84 units [place] (NOVOLIN 00 PM Medical 70/30 U-100 Branch INSULIN) 100 unit/mL (70-30) injection atorvastati 2020-0 Yes [id number] 80mg Take 1 [facility] n 80 mg 3-20 07 tablet by ity of tablet 00:00: mouth at [place] 00 bedtime. Medical Branch clopidogreL 2020-0 Yes [id number] 75mg Take 1 Univers (PLAVIX) 75 3-20 tablet by ity of mg tablet 00:00: mouth [place] 00 daily. Medical Branch insulin NPH 2019-0 Yes [id number] Inject 84 Univers and regular 3-20 units AM, ity of human 70 00:00: 84 units [place] (NOVOLIN 00 PM Medical 70/30 U-100 Branch INSULIN) 100 unit/mL (70-30) injection atorvastati 2019-0 Yes [id number] 80mg Take 1 [facility] n 80 mg 3-20 tablet by ity of tablet 00:00: mouth at [place] 00 bedtime. Medical Branch clopidogreL 2019-0 Yes [id number] 75mg Take 1 Univers (PLAVIX) 75 3-20 tablet by ity of mg tablet 00:00: mouth daily. Medical Branch insulin NPH 2019-0 Yes [id number] Inject 84 Univers and regular 3-20 units AM, ity of human 7030 00:00: 84 units [place] (NOVOLIN 00 PM Medical 70/30 U-100 Branch INSULIN) 100 unit/mL (70-30) injection atorvastati 2019-0 Yes [id number] 80mg Take 1 [facility] n 80 mg 3-20 tablet by ity of tablet 00:00: mouth at [place] 00 bedtime. Medical Branch clopidogreL 2020-0 Yes [id number] 75mg Take 1 Univers (PLAVIX) 75 3-20 tablet by ity of mg tablet 00:00: mouth 00 daily. Medical Branch insulin NPH 2019-0 Yes [id number] Inject 84 Univers and regular 3-20 units AM, ity of human 70-30 00:00: 84 units [place] (NOVOLIN 00 PM Medical 70/30 U-100 Branch INSULIN) 100 unit/mL (70-30) injection atorvastati 2020-0 Yes [id number] 80mg Take 1 [facility] n 80 mg 3-20 tablet by ity of tablet 00:00: mouth at [place] 00 bedtime. Medical Branch clopidogreL 2020-0 Yes [id number] 75mg Take 1 Univers (PLAVIX) 75 3-20 tablet by ity of mg tablet 00:00: mouth [place] 00 daily. Medical Branch insulin NPH 2020-0 Yes [id number] Inject 84 Univers and regular 3-20 units AM, ity of human 7030 00:00: 84 units [place] (NOVOLIN 00 PM Medical 70/30 U-100 Branch INSULIN) 100 unit/mL (70-30) injection atorvastati 2020-0 Yes [id number] 80mg Take 1 [facility] n 80 mg 3-20 tablet by ity of tablet 00:00: mouth at [place] 00 bedtime. Medical Branch clopidogreL 2020-0 Yes [id number] 75mg Take 1 Univers (PLAVIX) 75 3-20 tablet by ity of mg tablet 00:00: mouth 00 daily. Medical Branch insulin NPH 2020-0 Yes [id number] Inject 84 Univers and regular 3-20 units AM, ity of human 70 00:00: 84 units [place] (NOVOLIN 00 PM Medical 70/30 U-100 Branch INSULIN) 100 unit/mL (70-30) injection atorvastati 2020-0 Yes [id number] 80mg Take 1 [facility] n 80 mg 3-20 tablet by ity of tablet 00:00: mouth at [place] 00 bedtime. [facility] Branch clopidogreL 2020-0 Yes [id number] 75mg Take 1 Univers (PLAVIX) 75 3-20 tablet by ity of mg tablet 00:00: mouth daily. [facility] Branch insulin NPH 2020-0 Yes [id number] Inject 84 Univers and regular 3-20 units AM, ity of human 7030 00:00: 84 units [place] (NOVOLIN 00 PM Medical 70/30 U-100 Branch INSULIN) 100 unit/mL (70-30) injection atorvastati 2020-0 Yes [id number] 80mg Take 1 Univers n 80 mg 3-20 tablet by ity of tablet 00:00: mouth at [place] 00 bedtime. [facility] Branch clopidogreL 2020-0 Yes [id number] 75mg Take 1 Univers (PLAVIX) 75 3-20 tablet by ity of mg tablet 00:00: mouth 00 daily. Medical Branch insulin NPH 2020-0 Yes [id number] Inject 84 Univers and regular 3-20 units AM, ity of human 70-30 00:00: 84 units [place] (NOVOLIN 00 PM Medical 70/30 U-100 Branch INSULIN) 100 unit/mL (70-30) injection atorvastati 2020-0 Yes [id number] 80mg Take 1 Univers n 80 mg 3-20 tablet by ity of tablet 00:00: mouth at [place] 00 bedtime. Medical Branch clopidogreL 2020-0 Yes [id number] 75mg Take 1 Univers (PLAVIX) 75 3-20 tablet by ity of mg tablet 00:00: mouth [place] 00 daily. Medical Branch insulin NPH 2019-0 Yes [id number] Inject 84 Univers and regular 3-20 units AM, ity of human 7030 00:00: 84 units [place] (NOVOLIN 00 PM Medical 70/30 U-100 Branch INSULIN) 100 unit/mL (70-30) injection atorvastati 2019-0 Yes [id number] 80mg Take 1 [facility] n 80 mg 3-20 tablet by ity of tablet 00:00: mouth at [place] 00 bedtime. Medical Branch clopidogreL 2020-0 Yes [id number] 75mg Take 1 Univers (PLAVIX) 75 3-20 tablet by ity of mg tablet 00:00: mouth 00 daily. Medical Branch insulin NPH 2020-0 Yes [id number] Inject 84 Univers and regular 3-20 units AM, ity of human 70-30 00:00: 84 units [place] (NOVOLIN 00 PM Medical 70/30 U-100 Branch INSULIN) 100 unit/mL (70-30) injection atorvastati 2020-0 Yes [id number] 80mg Take 1 Univers n 80 mg 3-20 tablet by ity of tablet 00:00: mouth at [place] 00 bedtime. Medical Branch clopidogreL 2020-0 Yes [id number] 75mg Take 1 Univers (PLAVIX) 75 3-20 tablet by ity of mg tablet 00:00: mouth [place] 00 daily. Medical Branch insulin NPH 2020-0 Yes [id number] Inject 84 Univers and regular 3-20 units AM, ity of human 70-30 00:00: 84 units [place] (NOVOLIN 00 PM Medical 70/30 U-100 Branch INSULIN) 100 unit/mL (70-30) injection atorvastati 2020-0 Yes [id number] 80mg Take 1 Univers n 80 mg 3-20 tablet by ity of tablet 00:00: mouth at [place] 00 bedtime. Medical Branch clopidogreL 2020-0 Yes [id number] 75mg Take 1 Univers (PLAVIX) 75 3-20 tablet by ity of mg tablet 00:00: mouth [place] 00 daily. Medical Branch insulin NPH 2020-0 Yes [id number] Inject 84 Univers and regular 3-20 units AM, ity of human 7030 00:00: 84 units [place] (NOVOLIN 00 PM Medical 70/30 U-100 Branch INSULIN) 100 unit/mL (70-30) injection atorvastati 2020-0 Yes [id number] 80mg Take 1 [facility] n 80 mg 3-20 tablet by ity of tablet 00:00: mouth at 00 bedtime. Medical Branch clopidogreL 2020-0 Yes [id number] 75mg Take 1 Univers (PLAVIX) 75 3-20 tablet by ity of mg tablet 00:00: mouth 00 daily. Medical Branch insulin NPH 2020-0 Yes [id number] Inject 84 Univers and regular 3-20 units AM, ity of human 7030 00:00: 84 units [place] (NOVOLIN 00 PM Medical 70/30 U-100 Branch INSULIN) 100 unit/mL (70-30) injection atorvastati 2020-0 Yes [id number] 80mg Take 1 Univers n 80 mg 3-20 tablet by ity of tablet 00:00: mouth at 00 bedtime. Medical Branch clopidogreL 2020-0 Yes [id number] 75mg Take 1 Univers (PLAVIX) 75 3-20 tablet by ity of mg tablet 00:00: mouth daily. [facility] Branch insulin NPH 2020-0 Yes [id number] Inject 84 Univers and regular 3-20 units AM, ity of human 7030 00:00: 84 units [place] (NOVOLIN 00 PM Medical 70/30 U-100 Branch INSULIN) 100 unit/mL (70-30) injection atorvastati 2020-0 Yes [id number] 80mg Take 1 Univers n 80 mg 3-20 tablet by ity of tablet 00:00: mouth at 00 bedtime. [facility] Branch clopidogreL 2020-0 Yes [id number] 75mg Take 1 Univers (PLAVIX) 75 3-20 tablet by ity of mg tablet 00:00: mouth 00 daily. Medical Branch insulin NPH 2020-0 Yes [id number] Inject 84 Univers and regular 3-20 units AM, ity of human 70-30 00:00: 84 units [place] (NOVOLIN 00 PM Medical 70/30 U-100 Branch INSULIN) 100 unit/mL (70-30) injection atorvastati 2020-0 Yes [id number] 80mg Take 1 Univers n 80 mg 3-20 tablet by ity of tablet 00:00: mouth at [place] 00 bedtime. Medical Branch clopidogreL 2020-0 Yes [id number] 75mg Take 1 [facility] (PLAVIX) 75 3-20 tablet by ity of mg tablet 00:00: mouth [place] 00 daily. Medical Branch insulin NPH 2020-0 Yes [id number] Inject 84 Univers and regular 3-20 units AM, ity of human 7030 00:00: 84 units [place] (NOVOLIN 00 PM Medical 70/30 U-100 Branch INSULIN) 100 unit/mL (70-30) injection atorvastati 2019-0 Yes [id number] 80mg Take 1 [facility] n 80 mg 3-20 tablet by ity of tablet 00:00: mouth at [place] 00 bedtime. Medical Branch clopidogreL 2020-0 Yes [id number] 75mg Take 1 [facility] (PLAVIX) 75 3-20 tablet by ity of mg tablet 00:00: mouth 00 daily. Medical Branch insulin NPH 2020-0 Yes [id number] Inject 84 [facility] and regular 3-20 units AM, ity of human 70-30 00:00: 84 units [place] (NOVOLIN 00 PM Medical 70/30 U-100 Branch INSULIN) 100 unit/mL (70-30) injection atorvastati 2020-0 Yes [id number] 80mg Take 1 [facility] n 80 mg 3-20 tablet by ity of tablet 00:00: mouth at [place] 00 bedtime. Medical Branch clopidogreL 2020-0 Yes [id number] 75mg Take 1 [facility] (PLAVIX) 75 3-20 tablet by ity of mg tablet 00:00: mouth [place] 00 daily. Medical Branch insulin NPH 2020-0 Yes [id number] Inject 84 [facility] and regular 3-20 units AM, ity of human 70-30 00:00: 84 units [place] (NOVOLIN 00 PM Medical 70/30 U-100 Branch INSULIN) 100 unit/mL (70-30) injection atorvastati 2020-0 Yes [id number] 80mg Take 1 [facility] n 80 mg 3-20 tablet by ity of tablet 00:00: mouth at [place] 00 bedtime. Medical Branch clopidogreL 2020-0 Yes [id number] 75mg Take 1 [facility] (PLAVIX) 75 3-20 tablet by ity of mg tablet 00:00: mouth [place] 00 daily. Medical Branch insulin NPH 2020-0 Yes [id number] Inject 84 [facility] and regular 3-20 units AM, ity of human 7030 00:00: 84 units [place] (NOVOLIN 00 PM Medical 70/30 U-100 Branch INSULIN) 100 unit/mL (70-30) injection atorvastati 2020-0 Yes [id number] 80mg Take 1 [facility] n 80 mg 3-20 tablet by ity of tablet 00:00: mouth at 00 bedtime. Medical Branch clopidogreL 2020-0 Yes [id number] 75mg Take 1 [facility] (PLAVIX) 75 3-20 tablet by ity of mg tablet 00:00: mouth 00 daily. Medical Branch insulin NPH 2019-0 Yes [id number] Inject 84 Univers and regular 3-20 units AM, ity of human 7030 00:00: 84 units [place] (NOVOLIN 00 PM Medical 70/30 U-100 Branch INSULIN) 100 unit/mL (70-30) injection atorvastati 2020-0 Yes [id number] 80mg Take 1 [facility] n 80 mg 3-20 tablet by ity of tablet 00:00: mouth at 00 bedtime. Medical Branch clopidogreL 2020-0 Yes [id number] 75mg Take 1 [facility] (PLAVIX) 75 3-20 tablet by ity of mg tablet 00:00: mouth daily. Medical Branch insulin NPH 2020-0 Yes [id number] Inject 84 [facility] and regular 3-20 units AM, ity of human 70-30 00:00: 84 units [place] (NOVOLIN 00 PM Medical 70/30 U-100 Branch INSULIN) 100 unit/mL (70-30) injection atorvastati 2020-0 Yes [id number] 80mg Take 1 [facility] n 80 mg 3-20 tablet by ity of tablet 00:00: mouth at 00 bedtime. Medical Branch clopidogreL 2020-0 Yes [id number] 75mg Take 1 Univers (PLAVIX) 75 3-20 tablet by ity of mg tablet 00:00: mouth 00 daily. Medical Branch insulin NPH 2020-0 Yes [id number] Inject 84 [facility] and regular 3-20 units AM, ity of human 70-30 00:00: 84 units [place] (NOVOLIN 00 PM Medical 70/30 U-100 Branch INSULIN) 100 unit/mL (70-30) injection atorvastati 2020-0 Yes [id number] 80mg Take 1 Univers n 80 mg 3-20 tablet by ity of tablet 00:00: mouth at [place] 00 bedtime. Medical Branch clopidogreL 2020-0 Yes [id number] 75mg Take 1 Univers (PLAVIX) 75 3-20 tablet by ity of mg tablet 00:00: mouth [place] 00 daily. [facility] Branch insulin NPH 2019-0 Yes [id number] Inject 84 Univers and regular 3-20 units AM, ity of human 7030 00:00: 84 units [place] (NOVOLIN 00 PM Medical 70/30 U-100 Branch INSULIN) 100 unit/mL (70-30) injection atorvastati 2019-0 Yes [id number] 80mg Take 1 Univers n 80 mg 3-20 tablet by ity of tablet 00:00: mouth at [place] 00 bedtime. Medical Branch clopidogreL 2020-0 Yes [id number] 75mg Take 1 Univers (PLAVIX) 75 3-20 tablet by ity of mg tablet 00:00: mouth [place] 00 daily. [facility] Branch insulin NPH 2019-0 Yes [id number] Inject 84 Univers and regular 3-20 units AM, ity of human 70-30 00:00: 84 units [place] (NOVOLIN 00 PM Medical 70/30 U-100 Branch INSULIN) 100 unit/mL (70-30) injection atorvastati 2020-0 Yes [id number] 80mg Take 1 Univers n 80 mg 3-20 tablet by ity of tablet 00:00: mouth at [place] 00 bedtime. [facility] Branch clopidogreL 2020-0 Yes [id number] 75mg Take 1 Univers (PLAVIX) 75 3-20 tablet by ity of mg tablet 00:00: mouth [place] 00 daily. Medical Branch insulin NPH 2020-0 Yes [id number] Inject 84 [facility] and regular 3-20 units AM, ity of human 70-30 00:00: 84 units [place] (NOVOLIN 00 PM Medical 70/30 U-100 Branch INSULIN) 100 unit/mL (70-30) injection atorvastati 2020-0 Yes [id number] 80mg Take 1 [facility] n 80 mg 3-20 tablet by ity of tablet 00:00: mouth at [place] 00 bedtime. Medical Branch clopidogreL 2020-0 Yes [id number] 75mg Take 1 [facility] (PLAVIX) 75 3-20 tablet by ity of mg tablet 00:00: mouth [place] 00 daily. Medical Branch insulin NPH 2020-0 Yes [id number] Inject 84 Univers and regular 3-20 units AM, ity of human 7030 00:00: 84 units [place] (NOVOLIN 00 PM Medical 70/30 U-100 Branch INSULIN) 100 unit/mL (70-30) injection atorvastati 2020-0 Yes [id number] 80mg Take 1 [facility] n 80 mg 3-20 tablet by ity of tablet 00:00: mouth at 00 bedtime. Medical Branch clopidogreL 2020-0 Yes [id number] 75mg Take 1 [facility] (PLAVIX) 75 3-20 tablet by ity of mg tablet 00:00: mouth 00 daily. Medical Branch insulin NPH 2019-0 Yes [id number] Inject 84 [facility] and regular 3-20 units AM, ity of human 7030 00:00: 84 units [place] (NOVOLIN 00 PM Medical 70/30 U-100 Branch INSULIN) 100 unit/mL (70-30) injection atorvastati 2020-0 Yes [id number] 80mg Take 1 [facility] n 80 mg 3-20 tablet by ity of tablet 00:00: mouth at 00 bedtime. Medical Branch clopidogreL 2020-0 Yes [id number] 75mg Take 1 [facility] (PLAVIX) 75 3-20 tablet by ity of mg tablet 00:00: mouth daily. Medical Branch insulin NPH 2020-0 Yes [id number] Inject 84 [facility] and regular 3-20 units AM, ity of human 7030 00:00: 84 units [place] (NOVOLIN 00 PM Medical 70/30 U-100 Branch INSULIN) 100 unit/mL (70-30) injection atorvastati 2020-0 Yes [id number] 80mg Take 1 [facility] n 80 mg 3-20 tablet by ity of tablet 00:00: mouth at 00 bedtime. Medical Branch clopidogreL 2020-0 Yes [id number] 75mg Take 1 [facility] (PLAVIX) 75 3-20 tablet by ity of mg tablet 00:00: mouth 00 daily. Medical Branch insulin NPH 2020-0 Yes [id number] Inject 84 [facility] and regular 3-20 units AM, ity of human 70-30 00:00: 84 units [place] (NOVOLIN 00 PM Medical 70/30 U-100 Branch INSULIN) 100 unit/mL (70-30) injection atorvastati 2020-0 Yes [id number] 80mg Take 1 [facility] n 80 mg 3-20 tablet by ity of tablet 00:00: mouth at [place] 00 bedtime. Medical Branch clopidogreL 2020-0 Yes [id number] 75mg Take 1 [facility] (PLAVIX) 75 3-20 tablet by ity of mg tablet 00:00: mouth [place] 00 daily. Medical Branch insulin NPH 2019-0 Yes [id number] Inject 84 [facility] and regular 3-20 units AM, ity of human 7030 00:00: 84 units [place] (NOVOLIN 00 PM Medical 70/30 U-100 Branch INSULIN) 100 unit/mL (70-30) injection atorvastati 2019-0 Yes [id number] 80mg Take 1 [facility] n 80 mg 3-20 tablet by ity of tablet 00:00: mouth at [place] 00 bedtime. Medical Branch clopidogreL 2020-0 Yes [id number] 75mg Take 1 [facility] (PLAVIX) 75 3-20 tablet by ity of mg tablet 00:00: mouth [place] 00 daily. Medical Branch insulin NPH 2020-0 Yes [id number] Inject 84 [facility] and regular 3-20 units AM, ity of human 70-30 00:00: 84 units [place] (NOVOLIN 00 PM Medical 70/30 U-100 Branch INSULIN) 100 unit/mL (70-30) injection atorvastati 2020-0 Yes [id number] 80mg Take 1 [facility] n 80 mg 3-20 tablet by ity of tablet 00:00: mouth at [place] 00 bedtime. Medical Branch clopidogreL 2020-0 Yes [id number] 75mg Take 1 [facility] (PLAVIX) 75 3-20 tablet by ity of mg tablet 00:00: mouth [place] 00 daily. Medical Branch insulin NPH 2020-0 Yes [id number] Inject 84 [facility] and regular 3-20 units AM, ity of human 7030 00:00: 84 units [place] (NOVOLIN 00 PM Medical 70/30 U-100 Branch INSULIN) 100 unit/mL (70-30) injection atorvastati 2020-0 Yes [id number] 80mg Take 1 [facility] n 80 mg 3-20 tablet by ity of tablet 00:00: mouth at [place] 00 bedtime. Medical Branch clopidogreL 2020-0 Yes [id number] 75mg Take 1 [facility] (PLAVIX) 75 3-20 tablet by ity of mg tablet 00:00: mouth [place] 00 daily. Medical Branch insulin NPH 2020-0 Yes [id number] Inject 84 [facility] and regular 3-20 units AM, ity of human 7030 00:00: 84 units [place] (NOVOLIN 00 PM Medical 70/30 U-100 Branch INSULIN) 100 unit/mL (70-30) injection atorvastati 2020-0 Yes [id number] 80mg Take 1 [facility] n 80 mg 3-20 tablet by ity of tablet 00:00: mouth at [place] 00 bedtime. Medical Branch clopidogreL 2020-0 Yes [id number] 75mg Take 1 [facility] (PLAVIX) 75 3-20 tablet by ity of mg tablet 00:00: mouth 00 daily. Medical Branch insulin NPH 2019-0 Yes [id number] Inject 84 [facility] and regular 3-20 units AM, ity of human 7030 00:00: 84 units [place] (NOVOLIN 00 PM Medical 70/30 U-100 Branch INSULIN) 100 unit/mL (70-30) injection atorvastati 2019-0 Yes [id number] 80mg Take 1 [facility] n 80 mg 3-20 tablet by ity of tablet 00:00: mouth at [place] 00 bedtime. Medical Branch clopidogreL 2020-0 Yes [id number] 75mg Take 1 [facility] (PLAVIX) 75 3-20 tablet by ity of mg tablet 00:00: mouth daily. Medical Branch insulin NPH 2019-0 Yes [id number] Inject 84 [facility] and regular 3-20 units AM, ity of human 70-30 00:00: 84 units [place] (NOVOLIN 00 PM Medical 70/30 U-100 Branch INSULIN) 100 unit/mL (70-30) injection atorvastati 2020-0 Yes [id number] 80mg Take 1 [facility] n 80 mg 3-20 tablet by ity of tablet 00:00: mouth at [place] 00 bedtime. Medical Branch clopidogreL 2020-0 Yes [id number] 75mg Take 1 [facility] (PLAVIX) 75 3-20 tablet by ity of mg tablet 00:00: mouth [place] 00 daily. Medical Branch insulin NPH 2020-0 Yes [id number] Inject 84 [facility] and regular 3-20 units AM, ity of human 70-30 00:00: 84 units [place] (NOVOLIN 00 PM Medical 70/30 U-100 Branch INSULIN) 100 unit/mL (70-30) injection atorvastati 2020-0 Yes [id number] 80mg Take 1 [facility] n 80 mg 3-20 tablet by ity of tablet 00:00: mouth at [place] 00 bedtime. Medical Branch clopidogreL 2020-0 Yes [id number] 75mg Take 1 [facility] (PLAVIX) 75 3-20 tablet by ity of mg tablet 00:00: mouth [place] 00 daily. Medical Branch insulin NPH 2019-0 Yes [id number] Inject 84 [facility] and regular 3-20 units AM, ity of human 7030 00:00: 84 units [place] (NOVOLIN 00 PM Medical 70/30 U-100 Branch INSULIN) 100 unit/mL (70-30) injection atorvastati 2020-0 Yes [id number] 80mg Take 1 [facility] n 80 mg 3-20 tablet by ity of tablet 00:00: mouth at [place] 00 bedtime. Medical Branch clopidogreL 2020-0 Yes [id number] 75mg Take 1 [facility] (PLAVIX) 75 3-20 tablet by ity of mg tablet 00:00: mouth 00 daily. Medical Branch insulin NPH 2019-0 Yes [id number] Inject 84 [facility] and regular 3-20 units AM, ity of human 70-30 00:00: 84 units [place] (NOVOLIN 00 PM Medical 70/30 U-100 Branch INSULIN) 100 unit/mL (70-30) injection atorvastati 2020-0 Yes [id number] 80mg Take 1 [facility] n 80 mg 3-20 tablet by ity of tablet 00:00: mouth at [place] 00 bedtime. Medical Branch clopidogreL 2020-0 Yes [id number] 75mg Take 1 [facility] (PLAVIX) 75 3-20 tablet by ity of mg tablet 00:00: mouth [place] 00 daily. Medical Branch insulin NPH 2020-0 Yes [id number] Inject 84 [facility] and regular 3-20 units AM, ity of human 7030 00:00: 84 units [place] (NOVOLIN 00 PM Medical 70/30 U-100 Branch INSULIN) 100 unit/mL (70-30) injection atorvastati 2020-0 Yes [id number] 80mg Take 1 [facility] n 80 mg 3-20 tablet by ity of tablet 00:00: mouth at [place] 00 bedtime. Medical Branch clopidogreL 2020-0 Yes [id number] 75mg Take 1 [facility] (PLAVIX) 75 3-20 tablet by ity of mg tablet 00:00: mouth [place] 00 daily. Medical Branch insulin NPH 2020-0 Yes [id number] Inject 84 [facility] and regular 3-20 units AM, ity of human 70-30 00:00: 84 units [place] (NOVOLIN 00 PM Medical 70/30 U-100 Branch INSULIN) 100 unit/mL (70-30) injection atorvastati 2020-0 Yes [id number] 80mg Take 1 [facility] n 80 mg 3-20 tablet by ity of tablet 00:00: mouth at [place] bedtime. Medical Branch clopidogreL 2020-0 Yes [id number] 75mg Take 1 [facility] (PLAVIX) 75 3-20 tablet by ity of mg tablet 00:00: mouth 00 daily. Medical Branch atorvastati 2020-0 Yes [id number] 80mg Take 1 [facility] n 80 mg 3-20 tablet by ity of tablet 00:00: mouth at [place] bedtime. Medical Branch clopidogreL 2020-0 Yes [id number] 75mg Take 1 [facility] (PLAVIX) 75 3-20 tablet by ity of mg tablet 00:00: mouth [place] 00 daily. Medical Branch atorvastati 2020-0 Yes [id number] 80mg Take 1 [facility] n 80 mg 3-20 tablet by ity of tablet 00:00: mouth at [place] bedtime. Medical Branch clopidogreL 2020-0 Yes [id number] 75mg Take 1 [facility] (PLAVIX) 75 3-20 tablet by ity of mg tablet 00:00: mouth [place] 00 daily. Medical Branch atorvastati 2020-0 Yes [id number] 80mg Take 1 [facility] n 80 mg 3-20 tablet by ity of tablet 00:00: mouth at [place] bedtime. Medical Branch clopidogreL 2020-0 Yes [id number] 75mg Take 1 [facility] (PLAVIX) 75 3-20 tablet by ity of mg tablet 00:00: mouth [place] 00 daily. Medical Branch atorvastati 2020-0 Yes [id number] 80mg Take 1 [facility] n 80 mg 3-20 tablet by ity of tablet 00:00: mouth at [place] 00 bedtime. Medical Branch clopidogreL 2020-0 Yes [id number] 75mg Take 1 [facility] (PLAVIX) 75 3-20 tablet by ity of mg tablet 00:00: mouth [place] 00 daily. Medical Branch atorvastati 2020-0 Yes [id number] 80mg Take 1 [facility] n 80 mg 3-20 tablet by ity of tablet 00:00: mouth at [place] 00 bedtime. Medical Branch clopidogreL 2020-0 Yes [id number] 75mg Take 1 [facility] (PLAVIX) 75 3-20 tablet by ity of mg tablet 00:00: mouth [place] 00 daily. Medical Branch clopidogreL 2020-0 Yes [id number] 75mg Take 1 [facility] (PLAVIX) 75 3-20 tablet by ity of mg tablet 00:00: mouth [place] 00 daily. Medical Branch clopidogreL 2020-0 Yes [id number] 75mg Take 1 [facility] (PLAVIX) 75 3-20 tablet by ity of mg tablet 00:00: mouth [place] 00 daily. Medical Branch clopidogreL 2020-0 Yes [id number] 75mg Take 1 [facility] (PLAVIX) 75 3-20 tablet by ity of mg tablet 00:00: mouth [place] 00 daily. Medical Branch clopidogreL 2020-0 Yes [id number] 75mg Take 1 [facility] (PLAVIX) 75 3-20 tablet by ity of mg tablet 00:00: mouth [place] 00 daily. Medical Branch clopidogreL 2020-0 Yes [id number] 75mg Take 1 [facility] (PLAVIX) 75 3-20 tablet by ity of mg tablet 00:00: mouth [place] 00 daily. Medical Branch clopidogreL 2020-0 Yes [id number] 75mg Take 1 [facility] (PLAVIX) 75 3-20 tablet by ity of mg tablet 00:00: mouth [place] 00 daily. Medical Branch clopidogreL 2020-0 Yes [id number] 75mg Take 1 [facility] (PLAVIX) 75 3-20 tablet by ity of mg tablet 00:00: mouth [place] 00 daily. Medical Branch clopidogreL 2020-0 Yes [id number] 75mg Take 1 [facility] (PLAVIX) 75 3-20 tablet by ity of mg tablet 00:00: mouth [place] 00 daily. Medical Branch clopidogreL 2020-0 Yes [id number] 75mg Take 1 [facility] (PLAVIX) 75 3-20 tablet by ity of mg tablet 00:00: mouth [place] 00 daily. Medical Branch clopidogreL 2020-0 Yes [id number] 75mg Take 1 [facility] (PLAVIX) 75 3-20 tablet by ity of mg tablet 00:00: mouth [place] 00 daily. Medical Branch clopidogreL 2020-0 Yes [id number] 75mg Take 1 [facility] (PLAVIX) 75 3-20 tablet by ity of mg tablet 00:00: mouth [place] 00 daily. Medical Branch clopidogreL 2020-0 Yes [id number] 75mg Take 1 [facility] (PLAVIX) 75 3-20 tablet by ity of mg tablet 00:00: mouth [place] 00 daily. Medical Branch insulin NPH 2020-0 Yes [id number] Inject 84 [facility] and regular 3-20 units AM, ity of human 70-30 00:00: 84 units [place] (NOVOLIN 00 PM Medical 70/30 U-100 Branch INSULIN) 100 unit/mL (70-30) injection atorvastati Yes [id number] 80mg Take 1 [facility] n 80 mg 3-20 07 tablet by ity of tablet 00:00: mouth at [place] 00 bedtime. Medical Branch clopidogreL Yes [id number] 75mg Take 1 [facility] (PLAVIX) 75 3-20 tablet by ity of mg tablet 00:00: mouth [place] 00 daily. Medical Branch insulin NPH Yes [id number] Inject 84 [facility] and regular 3-20 units AM, ity of human 70-30 00:00: 84 units [place] (NOVOLIN 00 PM Medical 70/30 U-100 Branch INSULIN) 100 unit/mL (70-30) injection atorvastati Yes [id number] 80mg Take 1 [facility] n 80 mg [...] daily. Medical placement Branch clopidogreL 2020-2020- No [id number] 75mg Take 1 [facility] (PLAVIX) 75 3-20 07-06 tablet by it y of mg tablet 00:00: 00:00 mouth [place] 00 :00 daily. Medical Branch atorvastati 2019-2020- No [id number] 80mg Take 1 [facility] n 80 mg 3-20 05-06 tablet by ity of tablet 00:00: 00:00 mouth at [place] 00 :00 bedtime. Medical Branch atorvastati 2020- No [id number] 80mg Take 1 [facility] n 80 mg 3-20 05-06 tablet by ity of tablet 00:00: 00:00 mouth at [place] 00 :00 bedtime. Medical Branch atorvastati 2020- No Coronary 80mg Take 1 [facility] n 80 mg 3-20 05-06 artery tablet by ity of tablet 00:00: 00:00 disease mouth at [place] 00 :00 involving bedtime. Medica l [place] [facility] coronary artery of [place] heart without angina pectoris atorvastati 2020- No Coronary 80mg Take 1 [facility] n 80 mg 3-20 05-06 artery tablet by ity of tablet 00:00: 00:00 disease mouth at [place] 00 :00 involving bedtime. Medica l [place] [facility] coronary artery of [place] heart without angina pectoris insulin NPH 2020- No [id number] Inject 84 [facility] and regular 3-20 04-12 [...] ity of mg 18:45: 17:57 ONCE, 1 [place] 00 :00 dose, [facility] 08/15/19 at [...] [facility] (NOVOLOG) + 08/15/19 at Br [facility] Fsbg 1145, Testing Until Discontinu ed, Routine [...] ity o f injection 14:05: 14:05 FOR [place] 50 :50 PROCEDURE Medical USE, 1 Branch dose, Starting [facility] 08/15/19 at 0905, Until [facility] 08/15/19 at 0905, Routine azithromyci 2019-0 2020- No 250mg 250 mg, U nivers n 08-14 Oral, ity of (ZITHROMAX) 14:00: 13:59 DAILY, 4 [place] tablet 250 00 :00 doses, Medical mg First dose Branch on [facility] 08/15/19 at 0900, Last dose on [place] 08/18/19 at 0900, TRANG
Re ason for Anti-Infec tive: Empiric Therapy for Suspected Infection< br>Empiric Therapy Site: Respirator y
Durat ion of therapy: 72 hours magnesium 2019-0 2020- No 4g 4 g, IV Univ ers sulfate in 08-14 Piggyback, it y of water 4 12:45: 01:35 ONCE, 1 [place] gram/50 mL 00 :00 dose, [facility] Medi blanquita (8 %) IV 08/15/19 at [facility] h Piggyback 4 0745, g Routine ipratropium 2019-0 Yes 3mL 3 mL, Unive rs -albuterol 08-14 Inhalation ity of (DUONEB) 10:24: , QID, [place] 0.5 mg-3 00 First dose Medic al [...] o f human 03:33: 03:38 us, ONCE, [place] (HUMULIN R) 00 :00 1 dose, Medic al injection Wed Branch 10 Units 08/14/19 at 2245, Routine insulin 2019-0 2020- No 8U 8 Units, Unive rs regular 08-13 Slow IV ity of human 22:00: 21:23 Push, [place] (HUMULIN R) 00 :00 ONCE, 1 Medic al injection 8 dose, Mon Bra nch Units 08/14/19 at 1700, Routine sulfur 2019-0 2020- No 5mL 5 mL, Univers hexafluorid 08-13 Intravenou i ty of e microsphr 17:15: 14:00 s, ONCE, 1 [place] (LUMASON) 00 :00 dose, Mon Medic al [...] 08-13 Oral, ity of mg 14:00: DAILY, [place] 00 First dose Medical on Mon Branch [...] ity of RAPID 12:30: 06:45 from 6.725 [place] (NOVOLOG) 00 :18 Units = Medical injection 7 0.25 Branch Units Units/kg/d ay ?80.7 kg), [facility] , TIDAC, First dose on Mon08/14/19 at 0730, Until Discontinu ed, Routine magnesium 2019-2019- No 4g 4 g, IV Univ ers sulfate in 08-13 Piggyback, it y of water 4 12:15: 14:00 ONCE, 1 [place] gram/50 mL 00 :00 dose, Mon Medi blanquita (8 %) IV 08/14/19 at [facility] h Piggyback 4 0715, g Routine dextrose 2019-0 Yes 250mL 250 mL, IV Un cali 10% (D10W) 18 Infusion, ity of bolus 12:06: PRN - SEE [place] infusion 49 INSTRUCTIO Medic al 250 mL NS, AMS Branch and BG <70, Starting [facility] 08/14/19 at 0706
De xtrose 10% 250 [...] KIT) 55 Starting Medical injection 1 Mon [place] mg 08/14/19 at 0705, Until Discontinu ed, TRANG, Blood Glucose < or = 70 mg/dL and patient is unable to swallow or has mental changes. morpHINE 2019-0 2020- No 2mg 2 mg, Slow Un cali injection 2 08-1318 IV Push, ity of mg 11:45: 10:43 ONCE, 1 [place] 00 :00 dose, [facility] Medical 08/14/19 at Branch 0645, Routine atorvastati 2019-0 2020- No 40mg 40 mg, Uni vers n (LIPITOR) 08-1320 Oral, QHS, i ty of tablet 40 02:00: 14:33 First dose [place] mg 00 :04 on [facility] 08/13/19 at Branch 2100, Until Discontinu ed, Routine Sliding 2019-0 2020- No Subcutaneo Uni vers Scale 08-1218 us, TID ity of Insulin - 22:00: 12:09 MEALS+HS, [place] Aspart 00 :18 First dose Medical (NOVOLOG) + on [facility] Fsbg 08/13/19 at Testing 1700, Until Discontinu ed, Routine dextrometho 2020-0 Yes 5mL 5 mL, [facility] rs rphan-guaif 08-12 Oral, ity of enesin 21:03: Q6HPRN, [place] (ROBITUSSIN 48 Starting Medi blanquita DM) 10-100 [facility] mg/5 mL 08/13/19 at solution 5 1603, mL Until Discontinu ed, Routine, Cough morpHINE 2019- No 4mg 4 mg, Slow Un cali injection 4 08-12 IV Push, ity of mg 21:00: 20:06 ONCE, 1 [place] 00 :00 dose, [facility] 08/13/19 at Branch 1600, Routine clopidogreL 2019- No 300mg 300 mg, U nivers (PLAVIX) 08-12 Oral, ity of tablet 300 20:30: 21:32 ONCE, 1 [place] mg 00 :00 dose, [facility] 08/13/19 at Branch 1530, Routine NaCl 0.9% 2019- No 500mL at 50 [facility] rs (NS) IV 08-12 mL/hr, IV ity of infusion 20:30: 19:41 Infusion, [place] 500 mL 00 :00 ONCE, 1 Medical dose, [facility] 08/13/19 at 1530, Routine
50 cc/hr for 500 mL total
HYDROcodone 2020- No 1{tbl} 1 tablet, Univers -acetaminop 08-12 Oral, ity of hen (NORCO 20:15: 02:39 ONCE, 1 [place] 5) 5-325 mg 00 :00 dose, [facility] Med ical tablet 1 08/13/19 at [facility] h tablet 1515, Routine FENTanyl PF 2020- No Slow IV Un cali (SUBLIMAZE 08-12 Push, ity of (PF)) 16:26: 16:26 TITRATE - [place] injection 15 :15 FOR Medical PROCEDURE Branch USE, 1 dose, Starting [facility] 08/13/19 at 1126, Until [facility] 08/13/19 at 1126, Routine midazolam 2020- No IV Push, Uni vers (VERSED) 08-12 TITRATE - ity o f injection 16:26: 16:26 FOR [place] 05 :05 PROCEDURE Medical USE, 1 Branch dose, Starting [facility] 08/13/19 at 1126, Until [facility] 08/13/19 at 1126, Routine clopidogreL 2020-0 2020- No 300mg 300 mg, U viniicoers (PLAVIX) 08-12 Oral, ity of tablet 300 15:30: 15:48 ONCE, 1 [place] mg 00 :00 dose, [facility] Medical 08/13/19 at Branch 1030, Routine pantoprazol 2020-0 Yes 40mg 40 mg, Univ ers e 08-12 Oral, ity of (PROTONIX) 14:00: DAILY, [place] EC tablet 00 First dose Medi blanquita 40 mg on [facility] 08/13/19 at 0900, Until Discontinu ed, Routine isosorbide 2020-0 Yes 30mg 30 mg, Unive rs mononitrate 08-12 Oral, ity of (IMDUR) 24 14:00: DAILY, [place] hr tablet 00 First dose Medi blanquita 30 mg on [facility] 08/13/19 at 0900, Until Discontinu ed, Routine furosemide 2020-0 Yes 20mg 20 mg, Unive rs (LASIX) 08-12 Oral, ity of tablet 20 14:00: DAILY, [place] mg 00 First dose Medical on [facility] 08/13/19 at 0900, Until Discontinu ed, Routine insulin NPH 2020-0 2020- No .3U/kg/ 12 Units Univers (HUMULIN N) 08-1218 d (rounded ity of injection 14:00: 12:08 from [place] 12 Units 00 :24 12.195 Medical Units = Branch 0.3 Units/kg/d ay ?81.3 kg), Subcutaneo us, QAM+HS, First dose on [facility] 08/13/19 at 0900, Until Discontinu ed, Routine metoprolol 2020-0 2020- No 25mg 25 mg, Univ ers tartrate 08-12 Oral, ity of (LOPRESSOR) 14:00: 12:10 DAILY, [place] tablet 25 00 :23 First dose Medi blanquita mg on [facility] 08/13/19 at 0900, Until Discontinu ed, Routine aspirin EC 2020-0 2020- No 81mg 81 mg, Univ ers tablet 81 08-12 Oral, ity of mg 14:00: 13:38 DAILY, [place] 00 :12 First dose Medical on [facility] Branch 08/13/19 at 0900, Until Discontinu ed, Routine gabapentin 2020-0 Yes 800mg 800 mg, Uni vers (NEURONTIN) 08-12 Oral, TID, it y of tablet 800 13:00: First dose [place] mg 00 on [facility] Medical 08/13/19 at Branch 0800, Until Discontinu ed, Routine insulin 2020-0 2020- No .3U/kg/ 8 Units Uni vers aspart 08-1218 d (rounded ity of RAPID 13:00: 12:08 from 8.13 [place] (NOVOLOG) 00 :24 Units = Medical injection [...] of water 4 10:30: 10:53 ONCE, 1 [place] gram/50 mL 00 :00 dose, Mon Medi blanquita (8 %) IV 08/13/19 at [facility] h Piggyback 4 0530, g Routine heparin 2020-0 2020- No 4000U 4,000 Univers 1000 08-12 Units, IV ity of unit/mL 09:45: 12:17 Push, [place] injection 00 :00 ONCE, 1 Medical Soln 4,000 dose, Mon Bran ch Units 08/13/19 at 0500, Routine heparin 2020-0 Yes 3000U FOR Univers (1,000 08-12 REBOLUSING ity of unit/mL, 10 09:43: , Starting [place] mL vial) 08 [facility] for 08/13/19 at Branch Rebolusing 0443, Until Discontinu ed, Routine
Dosing based on aPTT testing parameters (refer to continuous heparin drip order).
ondansetron 2019-0 2020- No 4mg 4 mg, Slow Univers (ZOFRAN 08-12 IV Push, ity of (PF)) 08:30: 07:44 ONCE, 1 [place] injection 4 00 :00 dose, [facility] Med ical mg 08/13/19 at Branch 0330, Routine dextrometho 2019-0 2020- No 5mL 5 mL, Univ ers rphan-guaif 08-12 Oral, ity of enesin 07:25: 21:03 Q6HPRN, [place] (ROBITUSSIN 59 :57 Starting Medi blanquita DM) 10-100 [facility] mg/5 mL 08/13/19 at solution 5 0225, mL Until [facility] 08/13/19 at 1603, Routine, Cough morpHINE 2019-0 2020- No 2mg 2 mg, Slow Un cali injection 2 08-12 IV Push, ity of mg 06:08: 13:24 Q6HPRN, 2 [place] 33 :00 doses, Medical Starting Branch 08/13/19 at 0108, Until 08/13/19 at 0824, Routine, Chest pain aspirin 2020-0 Yes 81mg Take 81 mg Univ ers (ASPIRIN 3-17 by mouth ity of LOW DOSE) 04:49: daily. [place] 81 mg EC 06 Medical tablet Branch aspirin 2020-0 Yes 81mg Take 81 mg Univ ers (ASPIRIN 3-17 by mouth ity of LOW DOSE) 04:49: daily. [place] 81 mg EC 06 Medical tablet Branch [...] mouth ity of LOW DOSE) 16:06: daily. [place] 81 mg EC 37 Medical tablet Branch [...] 37 Medical tablet Branch isosorbide 2020-0 Yes [id number] 30mg Take 1 Univers mononitrate 3-09 tablet by ity of 30 mg 24 hr 00:00: mouth [place] tablet 00 daily. Medical Branch isosorbide 2020-0 Yes [id number] 30mg Take 1 [facility] mononitrate 3-09 tablet by ity of 30 mg 24 hr 00:00: mouth [place] tablet 00 daily. Medical Branch isosorbide 2020-0 Yes [id number] 30mg Take 1 [facility] mononitrate 3-09 tablet by ity of 30 mg 24 hr 00:00: mouth [place] tablet 00 daily. Medical Branch isosorbide 2020-0 Yes [id number] 30mg Take 1 [facility] mononitrate 3-09 tablet by ity of 30 mg 24 hr 00:00: mouth [place] tablet 00 daily. Medical Branch isosorbide 2020-0 Yes [id number] 30mg Take 1 [facility] mononitrate 3-09 tablet by ity of 30 mg 24 hr 00:00: mouth [place] tablet 00 daily. Medical Branch isosorbide 2020-0 Yes [id number] 30mg Take 1 [facility] mononitrate 3-09 tablet by ity of 30 mg 24 hr 00:00: mouth [place] tablet 00 daily. Medical Branch isosorbide 2020-0 Yes [id number] 30mg Take 1 [facility] mononitrate 3-09 tablet by ity of 30 mg 24 hr 00:00: mouth [place] tablet 00 daily. Medical Branch isosorbide 2020-0 Yes [id number] 30mg Take 1 [facility] mononitrate 3-09 tablet by ity of 30 mg 24 hr 00:00: mouth [place] tablet 00 daily. Medical Branch isosorbide 2020-0 Yes [id number] 30mg Take 1 [facility] mononitrate 3-09 tablet by ity of 30 mg 24 hr 00:00: mouth [place] tablet 00 daily. Medical Branch isosorbide 2020-0 Yes [id number] 30mg Take 1 [facility] mononitrate 3-09 tablet by ity of 30 mg 24 hr 00:00: mouth [place] tablet 00 daily. Medical Branch isosorbide 2020-0 Yes [id number] 30mg Take 1 [facility] mononitrate 3-09 tablet by ity of 30 mg 24 hr 00:00: mouth [place] tablet 00 daily. Medical Branch isosorbide 2020-0 Yes [id number] 30mg Take 1 [facility] mononitrate 3-09 tablet by ity of 30 mg 24 hr 00:00: mouth [place] tablet 00 daily. Medical Branch isosorbide 2020-0 Yes [id number] 30mg Take 1 [facility] mononitrate 3-09 tablet by ity of 30 mg 24 hr 00:00: mouth [place] tablet 00 daily. Medical Branch isosorbide 2020-0 Yes [id number] 30mg Take 1 [facility] mononitrate 3-09 tablet by ity of 30 mg 24 hr 00:00: mouth [place] tablet 00 daily. Medical Branch isosorbide 2020-0 Yes [id number] 30mg Take 1 [facility] mononitrate 3-09 tablet by ity of 30 mg 24 hr 00:00: mouth [place] tablet 00 daily. Medical Branch isosorbide 2020-0 Yes [id number] 30mg Take 1 [facility] mononitrate 3-09 tablet by ity of 30 mg 24 hr 00:00: mouth [place] tablet 00 daily. Medical Branch isosorbide 2020-0 Yes [id number] 30mg Take 1 [facility] mononitrate 3-09 tablet by ity of 30 mg 24 hr 00:00: mouth [place] tablet 00 daily. Medical Branch isosorbide 2020-0 Yes [id number] 30mg Take 1 [facility] mononitrate 3-09 tablet by ity of 30 mg 24 hr 00:00: mouth [place] tablet 00 daily. Medical Branch isosorbide 2020-0 Yes [id number] 30mg Take 1 [facility] mononitrate 3-09 tablet by ity of 30 mg 24 hr 00:00: mouth [place] tablet 00 daily. Medical Branch isosorbide 2020-0 Yes [id number] 30mg Take 1 [facility] mononitrate 3-09 tablet by ity of 30 mg 24 hr 00:00: mouth [place] tablet 00 daily. Medical Branch isosorbide 2020-0 Yes [id number] 30mg Take 1 Univers mononitrate 3-09 tablet by ity of 30 mg 24 hr 00:00: mouth [place] tablet 00 daily. Medical Branch isosorbide 2020-0 Yes [id number] 30mg Take 1 [facility] mononitrate 3-09 tablet by ity of 30 mg 24 hr 00:00: mouth [place] tablet 00 daily. Medical Branch isosorbide 2020-0 Yes [id number] 30mg Take 1 Univers mononitrate 3-09 tablet by ity of 30 mg 24 hr 00:00: mouth [place] tablet 00 daily. Medical Branch isosorbide 2020-0 Yes [id number] 30mg Take 1 [facility] mononitrate 3-09 tablet by ity of 30 mg 24 hr 00:00: mouth [place] tablet 00 daily. Medical Branch isosorbide 2020-0 Yes [id number] 30mg Take 1 [facility] mononitrate 3-09 tablet by ity of 30 mg 24 hr 00:00: mouth [place] tablet 00 daily. Medical Branch isosorbide 2020-0 Yes [id number] 30mg Take 1 [facility] mononitrate 3-09 tablet by ity of 30 mg 24 hr 00:00: mouth [place] tablet 00 daily. Medical Branch isosorbide 2020-0 Yes [id number] 30mg Take 1 Univers mononitrate 3-09 tablet by ity of 30 mg 24 hr 00:00: mouth [place] tablet 00 daily. Medical Branch isosorbide 2020-0 Yes [id number] 30mg Take 1 Univers mononitrate 3-09 tablet by ity of 30 mg 24 hr 00:00: mouth [place] tablet 00 daily. Medical Branch isosorbide 2020-0 Yes [id number] 30mg Take 1 Univers mononitrate 3-09 tablet by ity of 30 mg 24 hr 00:00: mouth [place] tablet 00 daily. Medical Branch isosorbide 2020-0 Yes [id number] 30mg Take 1 Univers mononitrate 3-09 tablet by ity of 30 mg 24 hr 00:00: mouth [place] tablet 00 daily. Medical Branch isosorbide 2020-0 Yes [id number] 30mg Take 1 [facility] mononitrate 3-09 tablet by ity of 30 mg 24 hr 00:00: mouth [place] tablet 00 daily. Medical Branch isosorbide 2020-0 Yes [id number] 30mg Take 1 Univers mononitrate 3-09 tablet by ity of 30 mg 24 hr 00:00: mouth [place] tablet 00 daily. Medical Branch isosorbide 2020-0 Yes [id number] 30mg Take 1 [facility] mononitrate 3-09 tablet by ity of 30 mg 24 hr 00:00: mouth [place] tablet 00 daily. Medical Branch isosorbide 2020-0 Yes [id number] 30mg Take 1 Univers mononitrate 3-09 tablet by ity of 30 mg 24 hr 00:00: mouth [place] tablet 00 daily. Medical Branch isosorbide 2020-0 Yes [id number] 30mg Take 1 [facility] mononitrate 3-09 tablet by ity of 30 mg 24 hr 00:00: mouth [place] tablet 00 daily. Medical Branch isosorbide 2020-0 Yes [id number] 30mg Take 1 [facility] mononitrate 3-09 tablet by ity of 30 mg 24 hr 00:00: mouth [place] tablet 00 daily. Medical Branch isosorbide 2020-0 Yes [id number] 30mg Take 1 [facility] mononitrate 3-09 tablet by ity of 30 mg 24 hr 00:00: mouth [place] tablet 00 daily. Medical Branch isosorbide 2020-0 Yes [id number] 30mg Take 1 [facility] mononitrate 3-09 tablet by ity of 30 mg 24 hr 00:00: mouth [place] tablet 00 daily. Medical Branch isosorbide 2020-0 Yes [id number] 30mg Take 1 [facility] mononitrate 3-09 tablet by ity of 30 mg 24 hr 00:00: mouth [place] tablet 00 daily. Medical Branch isosorbide 2020-0 Yes [id number] 30mg Take 1 [facility] mononitrate 3-09 tablet by ity of 30 mg 24 hr 00:00: mouth [place] tablet 00 daily. Medical Branch isosorbide 2020-0 Yes [id number] 30mg Take 1 [facility] mononitrate 3-09 tablet by ity of 30 mg 24 hr 00:00: mouth [place] tablet 00 daily. [facility] isosorbide 2020-0 Yes [id number] 30mg Take 1 [facility] mononitrate 3-09 tablet by ity of 30 mg 24 hr 00:00: mouth [place] tablet 00 daily. [facility] isosorbide 2020-0 Yes [id number] 30mg Take 1 [facility] mononitrate 3-09 tablet by ity of 30 mg 24 hr 00:00: mouth [place] tablet 00 daily. Medical [facility] isosorbide 2020-0 Yes [id number] 30mg Take 1 [facility] mononitrate 3-09 tablet by ity of 30 mg 24 hr 00:00: mouth [place] tablet 00 daily. [facility] isosorbide 2020-0 Yes [id number] 30mg Take 1 [facility] mononitrate 3-09 tablet by ity of 30 mg 24 hr 00:00: mouth [place] tablet 00 daily. [facility] isosorbide 2020-0 Yes [id number] 30mg Take 1 [facility] mononitrate 3-09 tablet by ity of 30 mg 24 hr 00:00: mouth [place] tablet 00 daily. [facility] isosorbide 2020-0 Yes [id number] 30mg Take 1 [facility] mononitrate 3-09 tablet by ity of 30 mg 24 hr 00:00: mouth [place] tablet 00 daily. [facility] isosorbide 2020-0 Yes [id number] 30mg Take 1 [facility] mononitrate 3-09 tablet by ity of 30 mg 24 hr 00:00: mouth [place] tablet 00 daily. [facility] isosorbide 2020-0 Yes [id number] 30mg Take 1 [facility] mononitrate 3-09 tablet by ity of 30 mg 24 hr 00:00: mouth [place] tablet 00 daily. [facility] isosorbide 2020-0 Yes [id number] 30mg Take 1 [facility] mononitrate 3-09 tablet by ity of 30 mg 24 hr 00:00: mouth [place] tablet 00 daily. [facility] isosorbide 2020-0 2021- No [id number] 30mg Take 1 [facility] mononitrate 3-09 01-08 tablet by it y of 30 mg 24 hr 00:00: 00:[place] tablet 00 :00 daily. [facility] insulin NPH 2018-05 Yes [id number] Inject 80 [facility] and regular 2-13 units AM, ity of human 70-30 00:00: 90 units [place] (NOVOLIN 00 PM Medical 70/30 U-100 Branch INSULIN) 100 unit/mL (70-30) injection insulin NPH 2018-05 Yes [id number] Inject 80 [facility] and regular 2-13 units AM, ity of human 70-30 00:00: 90 units [place] (NOVOLIN 00 PM Medical 70/30 U-100 Branch INSULIN) 100 unit/mL (70-30) injection insulin NPH 2018-05 Yes [id number] Inject 80 [facility] and regular 2-13 units AM, ity of human 70-30 00:00: 90 units [place] (NOVOLIN 00 PM Medical 70/30 U-100 Branch INSULIN) 100 unit/mL (70-30) injection insulin NPH 2018-05 Yes [id number] Inject 80 [facility] and regular 2-13 units AM, ity of human 70-30 00:00: 90 units [place] (NOVOLIN 00 PM Medical 70/30 U-100 Branch INSULIN) 100 unit/mL (70-30) injection insulin NPH 2018-05 Yes [id number] Inject 80 [facility] and regular 2-13 units AM, ity of human 7030 00:00: 90 units [place] (NOVOLIN 00 PM Medical 70/30 U-100 Branch INSULIN) 100 unit/mL (70-30) injection insulin NPH 2018-05 Yes [id number] Inject 80 [facility] and regular 2-13 units AM, ity of human 70-30 00:00: 90 units [place] (NOVOLIN 00 PM Medical 70/30 U-100 Branch INSULIN) 100 unit/mL (70-30) injection insulin NPH 2018-05 Yes [id number] Inject 80 [facility] and regular 2-13 units AM, ity of human 7030 00:00: 90 units [place] (NOVOLIN 00 PM Medical 70/30 U-100 Branch INSULIN) 100 unit/mL (70-30) injection insulin NPH 2018-05 2020- No [id number] Inject 80 [facility] and regular 2-13 03-20 units AM, it y of human 70-30 00:00: 00:00 90 units [place] (NOVOLIN 00 :00 PM Medical 70/30 U-100 Branch INSULIN) 100 unit/mL (70-30) injection FUROSEMIDE 2018-05 Yes [id number] TAKE 1 U nivers 20 mg 2-11 TABLET BY ity of tablet 00:00: MOUTH ONCE [place] DAILY Medical Branch FUROSEMIDE 2018-05 Yes [id number] TAKE 1 U nivers 20 mg 2-11 TABLET BY ity of tablet 00:00: MOUTH ONCE [place] DAILY Medical Branch FUROSEMIDE 2018-05 Yes [id number] TAKE 1 U nivers 20 mg 2-11 TABLET BY ity of tablet 00:00: MOUTH ONCE [place] DAILY Medical Branch FUROSEMIDE 2018-05 Yes [id number] TAKE 1 U nivers 20 mg 2-11 TABLET BY ity of tablet 00:00: MOUTH ONCE [place] DAILY Medical Branch FUROSEMIDE 2018-05 Yes [id number] TAKE 1 U nivers 20 mg 2-11 TABLET BY ity of tablet 00:00: MOUTH ONCE DAILY Medical Branch FUROSEMIDE 2019- Yes [id number] TAKE 1 U nivers 20 mg 2-11 TABLET BY ity of tablet 00:00: MOUTH ONCE DAILY Medical Branch FUROSEMIDE 2019- Yes [id number] TAKE 1 U nivers 20 mg 2-11 TABLET BY ity of tablet 00:00: MOUTH ONCE DAILY Medical Branch FUROSEMIDE 2019- Yes [id number] TAKE 1 U nivers 20 mg 2-11 TABLET BY ity of tablet 00:00: MOUTH ONCE DAILY Medical Branch FUROSEMIDE 2019- Yes [id number] TAKE 1 U nivers 20 mg 2-11 TABLET BY ity of tablet 00:00: MOUTH ONCE DAILY Medical Branch FUROSEMIDE 2019- Yes [id number] TAKE 1 U nivers 20 mg 2-11 TABLET BY ity of tablet 00:00: MOUTH ONCE [place] [facility] FUROSEMIDE 2019- Yes [id number] TAKE 1 U nivers 20 mg 2-11 TABLET BY ity of tablet 00:00: MOUTH ONCE [place] DAILY Medical Branch FUROSEMIDE 2019- Yes [id number] TAKE 1 U nivers 20 mg 2-11 TABLET BY ity of tablet 00:00: MOUTH ONCE [place] [facility] FUROSEMIDE 2019- Yes [id number] TAKE 1 U nivers 20 mg 2-11 TABLET BY ity of tablet 00:00: MOUTH ONCE [place] [facility] FUROSEMIDE 2019- Yes [id number] TAKE 1 U nivers 20 mg 2-11 TABLET BY ity of tablet 00:00: MOUTH ONCE [place] DAILY Medical Branch FUROSEMIDE 2019- Yes [id number] TAKE 1 U nivers 20 mg 2-11 TABLET BY ity of tablet 00:00: MOUTH ONCE DAILY Medical Branch FUROSEMIDE 2019- Yes [id number] TAKE 1 U nivers 20 mg 2-11 TABLET BY ity of tablet 00:00: MOUTH ONCE [place] DAILY Medical Branch FUROSEMIDE 2019- Yes [id number] TAKE 1 U nivers 20 mg 2-11 TABLET BY ity of tablet 00:00: MOUTH ONCE DAILY Medical Branch FUROSEMIDE 2019- Yes [id number] TAKE 1 U nivers 20 mg 2-11 TABLET BY ity of tablet 00:00: MOUTH ONCE [place] DAILY [facility] Branch FUROSEMIDE 2019- Yes [id number] TAKE 1 U nivers 20 mg 2-11 TABLET BY ity of tablet 00:00: MOUTH ONCE [place] DAILY [facility] Branch FUROSEMIDE 2019- Yes [id number] TAKE 1 U nivers 20 mg 2-11 TABLET BY ity of tablet 00:00: MOUTH ONCE [place] DAILY [facility] Branch FUROSEMIDE 2018- Yes [id number] TAKE 1 U nivers 20 mg 2-11 TABLET BY ity of tablet 00:00: MOUTH ONCE [place] DAILY [facility] Branch FUROSEMIDE 2019- Yes [id number] TAKE 1 U nivers 20 mg 2-11 TABLET BY ity of tablet 00:00: MOUTH ONCE [place] DAILY [facility] Branch FUROSEMIDE 2018- Yes [id number] TAKE 1 U nivers 20 mg 2-11 TABLET BY ity of tablet 00:00: MOUTH ONCE [place] DAILY [facility] Branch FUROSEMIDE 2019- Yes [id number] TAKE 1 U nivers 20 mg 2-11 TABLET BY ity of tablet 00:00: MOUTH ONCE [place] DAILY [facility] Branch FUROSEMIDE 2018- Yes [id number] TAKE 1 U nivers 20 mg 2-11 TABLET BY ity of tablet 00:00: MOUTH ONCE [place] DAILY [facility] Branch FUROSEMIDE 2019- Yes [id number] TAKE 1 U nivers 20 mg 2-11 TABLET BY ity of tablet 00:00: MOUTH ONCE [place] DAILY [facility] Branch FUROSEMIDE 2018- Yes [id number] TAKE 1 U nivers 20 mg 2-11 TABLET BY ity of tablet 00:00: MOUTH ONCE [place] DAILY [facility] FUROSEMIDE 2019- 2020- No [id number] TAKE 1 [facility] 20 mg 2-11 08-18 TABLET BY ity of tablet 00:00: 00:00 M[place]TH ONCE [place] 00 :00 DAILY [facility] FUROSEMIDE 2019- 2020- No [id number] TAKE 1 [facility] 20 mg 2-11 08-18 TABLET BY ity of tablet 00:00: 00:00 M[place]TH [place]CE [place] 00 :[place] DAILY [facility] FUROSEMIDE 2019- 2020- No [id number] TAKE 1 [facility] 20 mg 2-11 08-18 TABLET BY ity of tablet 00:00: 00:00 MOUTH ONCE [place] 00 :00 DAILY [facility] pantoprazol 2019- Yes [id number] 40mg Take 1 [facility] e 40 mg EC 0-29 tablet by ity of tablet 00:00: mouth [place] 00 daily. Medical Branch potassium 2019- Yes [id number] 10meq Take 1 U nivers chloride 10 0-29 tablet by ity of mEq CR 00:00: mouth [place] tablet 00 daily. Medical Branch albuterol 2018-05 Yes [id number] 2{puff} Inhale 2 [facility] 90 0-29 Puffs ity of mcg/actuati 00:00: every 6 [place] inhaler 00 (six) Medical hours as Branch needed for Wheezing or Shortness of Breath. nitroglycer 2018-05 Yes [id number] 1 tab [place] [facility] in 0.4 mg 0-29 q5min up ity of sublingual 00:00: to 3 doses [place] tablet 00 PRN chest Medical pain, then Branch activate 911. DULoxetine 2018-05 Yes [id number] 30mg Take 1 [facility] 30 mg 0-29 capsule by ity of capsule 00:00: mouth [place] 00 daily. Medical Branch pantoprazol 2018-05 Yes [id number] 40mg Take 1 [facility] e 40 mg EC 0-29 tablet by ity of tablet 00:00: mouth [place] 00 daily. Medical Branch potassium 2018-05 Yes [id number] 10meq Take 1 U nivers chloride 10 0-29 tablet by ity of mEq CR 00:00: mouth [place] tablet 00 daily. Medical Branch albuterol 2018-05 Yes [id number] 2{puff} Inhale 2 [facility] 90 0-29 Puffs ity of mcg/actuati 00:00: every 6 [place] inhaler 00 (six) Medical hours as Branch needed for Wheezing or Shortness of Breath. nitroglycer 2018-05 Yes [id number] 1 tab SL [facility] in 0.4 mg 0-29 q5min up ity of sublingual 00:00: to 3 doses [place] tablet 00 PRN chest Medical pain, then Branch activate 911. DULoxetine 2018-05 Yes [id number] 30mg Take 1 [facility] 30 mg 0-29 capsule by ity of capsule 00:00: mouth [place] 00 daily. Medical Branch pantoprazol 2018-05 Yes [id number] 40mg Take 1 [facility] e 40 mg EC 0-29 tablet by ity of tablet 00:00: mouth [place] 00 daily. Medical Branch potassium 2018-05 Yes [id number] 10meq Take 1 U nivers chloride 10 0-29 tablet by ity of mEq CR 00:00: mouth [place] tablet 00 daily. Medical Branch albuterol 2018-05 Yes [id number] 2{puff} Inhale 2 [facility] 90 0-29 Puffs ity of mcg/actuati 00:00: every 6 [place] inhaler 00 (six) Medical hours as Branch needed for Wheezing or Shortness of Breath. nitroglycer 2018-05 Yes [id number] 1 tab SL [facility] in 0.4 mg 0-29 q5min up ity of sublingual 00:00: to 3 doses [place] tablet 00 PRN chest Medical pain, then Branch activate 911. DULoxetine 2018-05 Yes [id number] 30mg Take 1 [facility] 30 mg 0-29 capsule by ity of capsule 00:00: mouth [place] 00 daily. Medical Branch pantoprazol 2018-05 Yes [id number] 40mg Take 1 [facility] e 40 mg EC 0-29 tablet by ity of tablet 00:00: mouth [place] 00 daily. Medical Branch potassium 2018-05 Yes [id number] 10meq Take 1 U nivers chloride 10 0-29 tablet by ity of mEq CR 00:00: mouth [place] tablet 00 daily. Medical Branch albuterol 2018-05 Yes [id number] 2{puff} Inhale 2 [facility] 90 0-29 Puffs ity of mcg/actuati 00:00: every 6 [place] inhaler 00 (six) Medical hours as Branch needed for Wheezing or Shortness of Breath. nitroglycer 2018-05 Yes [id number] 1 tab SL [facility] in 0.4 mg 0-29 q5min up ity of sublingual 00:00: to 3 doses [place] tablet 00 PRN chest Medical pain, then Branch activate 911. DULoxetine 2018-05 Yes [id number] 30mg Take 1 [facility] 30 mg 0-29 capsule by ity of capsule 00:00: mouth [place] 00 daily. Medical Branch pantoprazol 2018-05 Yes [id number] 40mg Take 1 [facility] e 40 mg EC 0-29 tablet by ity of tablet 00:00: mouth [place] 00 daily. Medical Branch potassium 2018-05 Yes [id number] 10meq Take 1 U nivers chloride 10 0-29 tablet by ity of mEq CR 00:00: mouth [place] tablet 00 daily. Medical Branch albuterol 2018-05 Yes [id number] 2{puff} Inhale 2 [facility] 90 0-29 Puffs ity of mcg/actuati 00:00: every 6 [place] inhaler 00 (six) Medical hours as Branch needed for Wheezing or Shortness of Breath. nitroglycer 2018-05 Yes [id number] 1 tab SL [facility] in 0.4 mg 0-29 q5min up ity of sublingual 00:00: to 3 doses [place] tablet 00 PRN chest Medical pain, then Branch activate 911. DULoxetine 2018-05 Yes [id number] 30mg Take 1 [facility] 30 mg 0-29 capsule by ity of capsule 00:00: mouth [place] 00 daily. Medical Branch pantoprazol 2018-05 Yes [id number] 40mg Take 1 [facility] e 40 mg EC 0-29 tablet by ity of tablet 00:00: mouth [place] 00 daily. Medical Branch potassium 2018-05 Yes [id number] 10meq Take 1 U nivers chloride 10 0-29 tablet by ity of mEq CR 00:00: mouth [place] tablet 00 daily. Medical Branch albuterol 2018-05 Yes [id number] 2{puff} Inhale 2 [facility] 90 0-29 Puffs ity of mcg/actuati 00:00: every 6 [place] inhaler 00 (six) Medical hours as Branch needed for Wheezing or Shortness of Breath. nitroglycer 2018-05 Yes [id number] 1 tab SL [facility] in 0.4 mg 0-29 q5min up ity of sublingual 00:00: to 3 doses [place] tablet 00 PRN chest Medical pain, then Branch activate 911. DULoxetine 2018-05 Yes [id number] 30mg Take 1 [facility] 30 mg 0-29 capsule by ity of capsule 00:00: mouth [place] 00 daily. Medical Branch pantoprazol 2018-05 Yes [id number] 40mg Take 1 [facility] e 40 mg EC 0-29 tablet by ity of tablet 00:00: mouth [place] 00 daily. Medical Branch potassium 2018-05 Yes [id number] 10meq Take 1 U nivers chloride 10 0-29 tablet by ity of mEq CR 00:00: mouth [place] tablet 00 daily. Medical Branch albuterol 2018-05 Yes [id number] 2{puff} Inhale 2 [facility] 90 0-29 Puffs ity of mcg/actuati 00:00: every 6 [place] inhaler 00 (six) Medical hours as Branch needed for Wheezing or Shortness of Breath. nitroglycer 2018-05 Yes [id number] 1 tab SL [facility] in 0.4 mg 0-29 q5min up ity of sublingual 00:00: to 3 doses [place] tablet 00 PRN chest Medical pain, then Branch activate 911. DULoxetine 2018-05 Yes [id number] 30mg Take 1 [facility] 30 mg 0-29 capsule by ity of capsule 00:00: mouth [place] 00 daily. Medical Branch pantoprazol 2018-05 Yes [id number] 40mg Take 1 [facility] e 40 mg EC 0-29 tablet by ity of tablet 00:00: mouth [place] 00 daily. Medical Branch potassium 2018-05 Yes [id number] 10meq Take 1 U nivers chloride 10 0-29 tablet by ity of mEq CR 00:00: mouth [place] tablet 00 daily. Medical Branch albuterol 2018-05 Yes [id number] 2{puff} Inhale 2 [facility] 90 0-29 Puffs ity of mcg/actuati 00:00: every 6 [place] inhaler 00 (six) Medical hours as Branch needed for Wheezing or Shortness of Breath. nitroglycer 2018-05 Yes [id number] 1 tab SL [facility] in 0.4 mg 0-29 q5min up ity of sublingual 00:00: to 3 doses [place] tablet 00 PRN chest Medical pain, then Branch activate 911. DULoxetine 2018-05 Yes [id number] 30mg Take 1 [facility] 30 mg 0-29 capsule by ity of capsule 00:00: mouth [place] 00 daily. Medical Branch pantoprazol 2018-05 Yes [id number] 40mg Take 1 [facility] e 40 mg EC 0-29 tablet by ity of tablet 00:00: mouth [place] 00 daily. Medical Branch potassium 2018-05 Yes [id number] 10meq Take 1 U nivers chloride 10 0-29 tablet by ity of mEq CR 00:00: mouth [place] tablet 00 daily. Medical Branch albuterol 2018-05 Yes [id number] 2{puff} Inhale 2 [facility] 90 0-29 Puffs ity of mcg/actuati 00:00: every 6 [place] inhaler 00 (six) Medical hours as Branch needed for Wheezing or Shortness of Breath. nitroglycer 2018-05 Yes [id number] 1 tab SL [facility] in 0.4 mg 0-29 q5min up ity of sublingual 00:00: to 3 doses [place] tablet 00 PRN chest Medical pain, then Branch activate 911. DULoxetine 2018-05 Yes [id number] 30mg Take 1 [facility] 30 mg 0-29 capsule by ity of capsule 00:00: mouth [place] 00 daily. Medical Branch pantoprazol 2018-05 Yes [id number] 40mg Take 1 [facility] e 40 mg EC 0-29 tablet by ity of tablet 00:00: mouth [place] 00 daily. Medical Branch potassium 2018-05 Yes [id number] 10meq Take 1 U nivers chloride 10 0-29 tablet by ity of mEq CR 00:00: mouth [place] tablet 00 daily. Medical Branch albuterol 2018-05 Yes [id number] 2{puff} Inhale 2 [facility] 90 0-29 Puffs ity of mcg/actuati 00:00: every 6 [place] inhaler 00 (six) Medical hours as Branch needed for Wheezing or Shortness of Breath. nitroglycer 2018-05 Yes [id number] 1 tab SL [facility] in 0.4 mg 0-29 q5min up ity of sublingual 00:00: to 3 doses [place] tablet 00 PRN chest Medical pain, then Branch activate 911. DULoxetine 2018-05 Yes [id number] 30mg Take 1 [facility] 30 mg 0-29 capsule by ity of capsule 00:00: mouth [place] 00 daily. Medical Branch pantoprazol 2018-05 Yes [id number] 40mg Take 1 [facility] e 40 mg EC 0-29 tablet by ity of tablet 00:00: mouth [place] 00 daily. Medical Branch potassium 2018-05 Yes [id number] 10meq Take 1 U nivers chloride 10 0-29 tablet by ity of mEq CR 00:00: mouth [place] tablet 00 daily. [facility] Branch albuterol 2018-05 Yes [id number] 2{puff} Inhale 2 [facility] 90 0-29 Puffs ity of mcg/actuati 00:00: every 6 [place] inhaler 00 (six) Medical hours as Branch needed for Wheezing or Shortness of Breath. nitroglycer 2018-05 Yes [id number] 1 tab SL [facility] in 0.4 mg 0-29 q5min up ity of sublingual 00:00: to 3 doses [place] tablet 00 PRN chest Medical pain, then Branch activate 911. DULoxetine 2018-05 Yes [id number] 30mg Take 1 [facility] 30 mg 0-29 capsule by ity of capsule 00:00: mouth [place] 00 daily. [facility] Branch pantoprazol 2018-05 Yes [id number] 40mg Take 1 [facility] e 40 mg EC 0-29 tablet by ity of tablet 00:00: mouth [place] 00 daily. Medical Branch potassium 2018-05 Yes [id number] 10meq Take 1 U nivers chloride 10 0-29 tablet by ity of mEq CR 00:00: mouth [place] tablet 00 daily. [facility] Branch albuterol 2018-05 Yes [id number] 2{puff} Inhale 2 [facility] 90 0-29 Puffs ity of mcg/actuati 00:00: every 6 [place] inhaler 00 (six) Medical hours as Branch needed for Wheezing or Shortness of Breath. nitroglycer 2018-05 Yes [id number] 1 tab SL [facility] in 0.4 mg 0-29 q5min up ity of sublingual 00:00: to 3 doses [place] tablet 00 PRN chest Medical pain, then Branch activate 911. DULoxetine 2018-05 Yes [id number] 30mg Take 1 [facility] 30 mg 0-29 capsule by ity of capsule 00:00: mouth [place] 00 daily. Medical Branch pantoprazol 2018-05 Yes [id number] 40mg Take 1 [facility] e 40 mg EC 0-29 tablet by ity of tablet 00:00: mouth [place] 00 daily. Medical Branch potassium 2018-05 Yes [id number] 10meq Take 1 U nivers chloride 10 0-29 tablet by ity of mEq CR 00:00: mouth [place] tablet 00 daily. Medical Branch albuterol 2018-05 Yes [id number] 2{puff} Inhale 2 [facility] 90 0-29 Puffs ity of mcg/actuati 00:00: every 6 [place] inhaler 00 (six) Medical hours as Branch needed for Wheezing or Shortness of Breath. nitroglycer 2018-05 Yes [id number] 1 tab SL [facility] in 0.4 mg 0-29 q5min up ity of sublingual 00:00: to 3 doses [place] tablet 00 PRN chest Medical pain, then Branch activate 911. DULoxetine 2018-05 Yes [id number] 30mg Take 1 [facility] 30 mg 0-29 capsule by ity of capsule 00:00: mouth [place] 00 daily. Medical Branch albuterol 2018-05 Yes [id number] 2{puff} Inhale 2 [facility] 90 0-29 Puffs ity of mcg/actuati 00:00: every 6 [place] inhaler 00 (six) Medical hours as Branch needed for Wheezing or Shortness of Breath. nitroglycer 2018-05 Yes [id number] 1 tab SL [facility] in 0.4 mg 0-29 q5min up ity of sublingual 00:00: to 3 doses [place] tablet 00 PRN chest Medical pain, then Branch activate 911. DULoxetine 2018-05 Yes [id number] 30mg Take 1 [facility] 30 mg 0-29 capsule by ity of capsule 00:00: mouth [place] 00 daily. [facility] Branch albuterol 2018-05 Yes [id number] 2{puff} Inhale 2 [facility] 90 0-29 Puffs ity of mcg/actuati 00:00: every 6 [place] inhaler 00 (six) Medical hours as Branch needed for Wheezing or Shortness of Breath. nitroglycer 2018-05 Yes [id number] 1 tab SL [facility] in 0.4 mg 0-29 q5min up ity of sublingual 00:00: to 3 doses [place] tablet 00 PRN chest Medical pain, then Branch activate 911. albuterol 2018-05 Yes [id number] 2{puff} Inhale 2 [facility] 90 0-29 Puffs ity of mcg/actuati 00:00: every 6 [place] inhaler 00 (six) Medical hours as Branch needed for Wheezing or Shortness of Breath. nitroglycer 2018-05 Yes [id number] 1 tab SL [facility] in 0.4 mg 0-29 q5min up ity of sublingual 00:00: to 3 doses [place] tablet 00 PRN chest Medical pain, then Branch activate 911. albuterol 2018-05 Yes [id number] 2{puff} Inhale 2 [facility] 90 0-29 Puffs ity of mcg/actuati 00:00: every 6 [place] inhaler 00 (six) Medical hours as Branch needed for Wheezing or Shortness of Breath. nitroglycer 2018-05 Yes [id number] 1 tab SL [facility] in 0.4 mg 0-29 q5min up ity of sublingual 00:00: to 3 doses [place] tablet 00 PRN chest Medical pain, then Branch activate 911. albuterol 2018-05 Yes [id number] 2{puff} Inhale 2 [facility] 90 0-29 Puffs ity of mcg/actuati 00:00: every 6 [place] inhaler 00 (six) Medical hours as Branch needed for Wheezing or Shortness of Breath. nitroglycer 2018-05 Yes [id number] 1 tab SL [facility] in 0.4 mg 0-29 q5min up ity of sublingual 00:00: to 3 doses [place] tablet 00 PRN chest Medical pain, then Branch activate 911. albuterol 2018-05 Yes [id number] 2{puff} Inhale 2 [facility] 90 0-29 Puffs ity of mcg/actuati 00:00: every 6 [place] inhaler 00 (six) Medical hours as Branch needed for Wheezing or Shortness of Breath. nitroglycer 2018-05 Yes [id number] 1 tab SL [facility] in 0.4 mg 0-29 q5min up ity of sublingual 00:00: to 3 doses [place] tablet 00 PRN chest Medical pain, then Branch activate 911. albuterol 2018-05 Yes [id number] 2{puff} Inhale 2 [facility] 90 0-29 Puffs ity of mcg/actuati 00:00: every 6 [place] inhaler 00 (six) Medical hours as Branch needed for Wheezing or Shortness of Breath. nitroglycer 2018-05 Yes [id number] 1 tab SL [facility] in 0.4 mg 0-29 q5min up ity of sublingual 00:00: to 3 doses [place] tablet 00 PRN chest Medical pain, then Branch activate 911. albuterol 2018-05 Yes [id number] 2{puff} Inhale 2 [facility] 90 0-29 Puffs ity of mcg/actuati 00:00: every 6 [place] inhaler 00 (six) Medical hours as Branch needed for Wheezing or Shortness of Breath. nitroglycer 2018-05 Yes [id number] 1 tab SL [facility] in 0.4 mg 0-29 q5min up ity of sublingual 00:00: to 3 doses [place] tablet 00 PRN chest Medical pain, then Branch activate 911. albuterol 2018-05 Yes [id number] 2{puff} Inhale 2 [facility] 90 0-29 Puffs ity of mcg/actuati 00:00: every 6 [place] inhaler 00 (six) Medical hours as Branch needed for Wheezing or Shortness of Breath. nitroglycer 2018-05 Yes [id number] 1 tab SL [facility] in 0.4 mg 0-29 q5min up ity of sublingual 00:00: to 3 doses [place] tablet 00 PRN chest Medical pain, then Branch activate 911. albuterol 2018-05 Yes [id number] 2{puff} Inhale 2 [facility] 90 0-29 Puffs ity of mcg/actuati 00:00: every 6 [place] inhaler 00 (six) Medical hours as Branch needed for Wheezing or Shortness of Breath. nitroglycer 2018-05 Yes [id number] 1 tab SL [facility] in 0.4 mg 0-29 q5min up ity of sublingual 00:00: to 3 doses [place] tablet 00 PRN chest Medical pain, then Branch activate 911. albuterol 2018-05 Yes [id number] 2{puff} Inhale 2 [facility] 90 0-29 Puffs ity of mcg/actuati 00:00: every 6 [place] inhaler 00 (six) Medical hours as Branch needed for Wheezing or Shortness of Breath. nitroglycer 2018-05 Yes [id number] 1 tab SL [facility] in 0.4 mg 0-29 q5min up ity of sublingual 00:00: to 3 doses [place] tablet 00 PRN chest Medical pain, then Branch activate 911. albuterol 2018-05 Yes [id number] 2{puff} Inhale 2 [facility] 90 0-29 Puffs ity of mcg/actuati 00:00: every 6 [place] inhaler 00 (six) Medical hours as Branch needed for Wheezing or Shortness of Breath. nitroglycer 2018-05 Yes [id number] 1 tab SL [facility] in 0.4 mg 0-29 q5min up ity of sublingual 00:00: to 3 doses [place] tablet 00 PRN chest Medical pain, then Branch activate 911. albuterol 2018-05 Yes [id number] 2{puff} Inhale 2 [facility] 90 0-29 Puffs ity of mcg/actuati 00:00: every 6 [place] inhaler 00 (six) Medical hours as Branch needed for Wheezing or Shortness of Breath. nitroglycer 2018-05 Yes [id number] 1 tab SL [facility] in 0.4 mg 0-29 q5min up ity of sublingual 00:00: to 3 doses [place] tablet 00 PRN chest Medical pain, then Branch activate 911. albuterol 2018-05 Yes [id number] 2{puff} Inhale 2 [facility] 90 0-29 Puffs ity of mcg/actuati 00:00: every 6 [place] inhaler 00 (six) Medical hours as Branch needed for Wheezing or Shortness of Breath. nitroglycer 2018-05 Yes [id number] 1 tab SL [facility] in 0.4 mg 0-29 q5min up ity of sublingual 00:00: to 3 doses [place] tablet 00 PRN chest Medical pain, then Branch activate 911. albuterol 2018-05 Yes [id number] 2{puff} Inhale 2 [facility] 90 0-29 Puffs ity of mcg/actuati 00:00: every 6 [place] inhaler 00 (six) Medical hours as Branch needed for Wheezing or Shortness of Breath. nitroglycer 2018-05 Yes [id number] 1 tab SL [facility] in 0.4 mg 0-29 q5min up ity of sublingual 00:00: to 3 doses [place] tablet 00 PRN chest Medical pain, then Branch activate 911. albuterol 2018-05 Yes [id number] 2{puff} Inhale 2 [facility] 90 0-29 Puffs ity of mcg/actuati 00:00: every 6 [place] inhaler 00 (six) Medical hours as Branch needed for Wheezing or Shortness of Breath. nitroglycer 2018-05 Yes [id number] 1 tab SL [facility] in 0.4 mg 0-29 q5min up ity of sublingual 00:00: to 3 doses [place] tablet 00 PRN chest Medical pain, then Branch activate 911. albuterol 2018-05 Yes [id number] 2{puff} Inhale 2 [facility] 90 0-29 Puffs ity of mcg/actuati 00:00: every 6 [place] on inhaler 00 (six) Medical hours as Branch needed for Wheezing or Shortness of Breath. nitroglycer 2018-05 Yes [id number] 1 tab [facility] in 0.4 mg 0-29 q5min up ity of sublingual 00:00: to 3 doses [place] tablet 00 PRN chest Medical pain, then Branch activate 911. albuterol 2018-05 Yes [id number] 2{puff} Inhale 2 [facility] 90 0-29 Puffs ity of mcg/actuati 00:00: every 6 [place] inhaler 00 (six) Medical hours as Branch needed for Wheezing or Shortness of Breath. nitroglycer 2018-05 Yes [id number] 1 tab [facility] in 0.4 mg 0-29 q5min up [facility] of sublingual 00:00: to 3 doses [place] tablet 00 PRN chest Medical pain, then Branch activate 911. albuterol 2018-05 Yes [id number] 2{puff} Inhale 2 [facility] 90 0-29 Puffs [facility] of mcg/actuati 00:00: every 6 [place] inhaler 00 (six) Medical hours as Branch needed for Wheezing or Shortness of Breath. nitroglycer 2018-05 Yes [id number] 1 tab [facility] in 0.4 mg 0-29 q5min up [facility] of sublingual 00:00: to 3 doses [place] tablet 00 PRN chest Medical pain, then Branch activate 911. albuterol 2018-05 Yes [id number] 2{puff} Inhale 2 [facility] 90 0-29 Puffs it[facility] of mcg/actuati 00:00: every 6 [place] inhaler 00 (six) Medical hours as Branch needed for Wheezing or Shortness of Breath. nitroglycer 2018-05 Yes [id number] 1 tab [facility] in 0.4 mg 0-29 q5min up [facility] of sublingual 00:00: to 3 doses [place] tablet 00 PRN chest Medical pain, then Branch activate 911. albuterol 2018-05 Yes [id number] 2{puff} Inhale 2 [facility] 90 0-29 Puffs it[facility] of mcg/actuati 00:00: every 6 [place] inhaler 00 (six) Medical hours as Branch needed for Wheezing or Shortness of Breath. nitroglycer 2018-05 Yes [id number] 1 tab [facility] in 0.4 mg 0-29 q5min up [facility] of sublingual 00:00: to 3 doses [place] tablet 00 PRN chest Medical pain, then Branch activate 911. albuterol 2018-05 Yes [id number] 2{puff} Inhale 2 [facility] 90 0-29 Puffs ity of mcg/actuati 00:00: every 6 [place] inhaler 00 (six) Medical hours as Branch needed for Wheezing or Shortness of Breath. nitroglycer 2018-05 Yes [id number] 1 tab [facility] in 0.4 mg 0-29 q5min up [facility] of sublingual 00:00: to 3 doses [place] tablet 00 PRN chest Medical pain, then Branch activate 911. albuterol 2018-05 Yes [id number] 2{puff} Inhale 2 [facility] 90 0-29 Puffs [facility] of mcg/actuati 00:00: every 6 [place] inhaler 00 (six) Medical hours as Branch needed for Wheezing or Shortness of Breath. nitroglycer 2018-05 Yes [id number] 1 tab [facility] in 0.4 mg 0-29 q5min up [facility] of sublingual 00:00: to 3 doses [place] tablet 00 PRN chest Medical pain, then Branch activate 911. albuterol 2018-05 Yes [id number] 2{puff} Inhale 2 [facility] 90 0-29 Puffs [facility] of mcg/actuati 00:00: every 6 [place] inhaler 00 (six) Medical hours as Branch needed for Wheezing or Shortness of Breath. nitroglycer 2018-05 Yes [id number] 1 tab [facility] in 0.4 mg 0-29 q5min up [facility] of sublingual 00:00: to 3 doses [place] tablet 00 PRN chest Medical pain, then Branch activate 911. albuterol 2018-05 Yes [id number] 2{puff} Inhale 2 [facility] 90 0-29 Puffs [facility]y of mcg/actuati 00:00: every 6 [place] inhaler 00 (six) Medical hours as Branch needed for Wheezing or Shortness of Breath. nitroglycer 2018-05 Yes [id number] 1 tab [facility] in 0.4 mg 0-29 q5min up [facility] of sublingual 00:00: to 3 doses [place] tablet 00 PRN chest Medical pain, then Branch activate 911. nitroglycer 2018-05 Yes [id number] 1 tab [facility] in 0.4 mg 0-29 q5min up [facility] of sublingual 00:00: to 3 doses [place] tablet 00 PRN chest Medical pain, then Branch activate 911. nitroglycer 2018-05 Yes [id number] 1 tab [facility] in 0.4 mg 0-29 q5min up [facility] of sublingual 00:00: to 3 doses [place] tablet 00 PRN chest Medical pain, then Branch activate 911. nitroglycer 2018-05 Yes [id number] 1 tab [facility] in 0.4 mg 0-29 q5min up [facility] of sublingual 00:00: to 3 doses [place] tablet 00 PRN chest Medical pain, then Branch activate 911. nitroglycer 2018-05 Yes [id number] 1 tab [facility] in 0.4 mg 0-29 q5min up [facility] of sublingual 00:00: to 3 doses [place] tablet 00 PRN chest Medical pain, then Branch activate 911. nitroglycer 2018-05 Yes [id number] 1 tab [facility] in 0.4 mg 0-29 q5min up [facility] of sublingual 00:00: to 3 doses [place] tablet 00 PRN chest Medical pain, then Branch activate 911. nitroglycer 2018-05 Yes [id number] 1 tab [facility] in 0.4 mg 0-29 q5min up [facility] of sublingual 00:00: to 3 doses [place] tablet 00 PRN chest Medical pain, then Branch activate 911. nitroglycer 2018-05 Yes [id number] 1 tab [facility] in 0.4 mg 0-29 q5min up [facility] of sublingual 00:00: to 3 doses [place] tablet 00 PRN chest Medical pain, then Branch activate 911. nitroglycer 2018-05 Yes [id number] 1 tab [facility] in 0.4 mg 0-29 q5min up [facility] of sublingual 00:00: to 3 doses [place] tablet 00 PRN chest Medical pain, then Branch activate 911. nitroglycer 2018-05 Yes [id number] 1 tab [facility] in 0.4 mg 0-29 q5min up [facility] of sublingual 00:00: to 3 doses [place] tablet 00 PRN chest Medical pain, then Branch activate 911. nitroglycer 2018-05 Yes [id number] 1 tab [facility] in 0.4 mg 0-29 q5min up [facility] of sublingual 00:00: to 3 doses [place] tablet 00 PRN chest Medical pain, then Branch activate 911. nitroglycer 2018-05 Yes [id number] 1 tab [facility] in 0.4 mg 0-29 q5min up [facility] of sublingual 00:00: to 3 doses [place] tablet 00 PRN chest Medical pain, then Branch activate 911. nitroglycer 2018-05 Yes [id number] 1 tab [facility] in 0.4 mg 0-29 q5min up it[facility] of sublingual 00:00: to 3 doses [place] tablet 00 PRN chest Medical pain, then Branch activate 911. nitroglycer 2018-05 Yes [id number] 1 tab [facility] in 0.4 mg 0-29 q5min up [facility] of sublingual 00:00: to 3 doses [place] tablet 00 PRN chest Medical pain, then Branch activate 911. nitroglycer 2018-05 Yes [id number] 1 tab [facility] in 0.4 mg 0-29 q5min up [facility] of sublingual 00:00: to 3 doses [place] tablet 00 PRN chest Medical pain, then Branch activate 911. nitroglycer 2018-05 Yes [id number] 1 tab [facility] in 0.4 mg 0-29 q5min up [facility] of sublingual 00:00: to 3 doses [place] tablet 00 PRN chest Medical pain, then Branch activate 911. nitroglycer 2018-05 Yes [id number] 1 tab [facility] in 0.4 mg 0-29 q5min up [facility] of sublingual 00:00: to 3 doses [place] tablet 00 PRN chest Medical pain, then Branch activate 911. nitroglycer 2018-05 Yes [id number] 1 tab [facility] in 0.4 mg 0-29 q5min up it[facility] of sublingual 00:00: to 3 doses [place] tablet 00 PRN chest Medical pain, then Branch activate 911. nitroglycer 2018-05 Yes [id number] 1 tab [facility] in 0.4 mg 0-29 q5min up [facility] of sublingual 00:00: to 3 doses [place] tablet 00 PRN chest Medical pain, then Branch activate 911. nitroglycer 2018-05 Yes [id number] 1 tab [facility] in 0.4 mg 0-29 q5min up [facility] of sublingual 00:00: to 3 doses [place] tablet 00 PRN chest Medical pain, then Branch activate 911. nitroglycer 2018-05 Yes [id number] 1 tab [facility] in 0.4 mg 0-29 q5min up [facility] of sublingual 00:00: to 3 doses [place] tablet 00 PRN chest Medical pain, then Branch activate 911. nitroglycer 2018-05 Yes [id number] 1 tab [facility] in 0.4 mg 0-29 q5min up [facility]y of sublingual 00:00: to 3 doses [place] tablet 00 PRN chest Medical pain, then Branch activate 911. nitroglycer 2018-05 Yes [id number] 1 tab [facility] in 0.4 mg 0-29 q5min up [facility]y of sublingual 00:00: to 3 doses [place] tablet 00 PRN chest Medical pain, then Branch activate 911. nitroglycer 2018-05 Yes [id number] 1 tab [facility] in 0.4 mg 0-29 q5min up ity of sublingual 00:00: to 3 doses [place] tablet 00 PRN chest Medical pain, then Branch activate 911. nitroglycer 2018-05 Yes [id number] 1 tab [facility] in 0.4 mg 0-29 q5min up [facility] of sublingual 00:00: to 3 doses [place] tablet 00 PRN chest Medical pain, then Branch activate 911. nitroglycer 2018-05 Yes [id number] 1 tab [facility] in 0.4 mg 0-29 q5min up [facility] of sublingual 00:00: to 3 doses [place] tablet 00 PRN chest Medical pain, then Branch activate 911. nitroglycer 2018-05 Yes [id number] 1 tab [facility] in 0.4 mg 0-29 q5min up [facility] of sublingual 00:00: to 3 doses [place] tablet 00 PRN chest Medical pain, then Branch activate 911. nitroglycer 2018-05 Yes [id number] 1 tab [facility] in 0.4 mg 0-29 q5min up [facility] of sublingual 00:00: to 3 doses [place] tablet 00 PRN chest Medical pain, then Branch activate 911. nitroglycer 2018-05 Yes [id number] 1 tab [facility] in 0.4 mg 0-29 q5min up [facility] of sublingual 00:00: to 3 doses [place] tablet 00 PRN chest Medical pain, then Branch activate 911. nitroglycer 2018-05 Yes [id number] 1 tab [facility] in 0.4 mg 0-29 q5min up [facility] of sublingual 00:00: to 3 doses [place] tablet 00 PRN chest Medical pain, then Branch activate 911. nitroglycer 2018-05 Yes [id number] 1 tab [facility] in 0.4 mg 0-29 q5min up [facility] of sublingual 00:00: to 3 doses [place] tablet 00 PRN chest Medical pain, then Branch activate 911. nitroglycer 2018-05 Yes [id number] 1 tab [facility] in 0.4 mg 0-29 q5min up it[facility] of sublingual 00:00: to 3 doses [place] tablet 00 PRN chest Medical pain, then Branch activate 911. nitroglycer 2018-05 Yes [id number] 1 tab [facility] in 0.4 mg 0-29 q5min up [facility] of sublingual 00:00: to 3 doses [place] tablet 00 PRN chest Medical pain, then Branch activate 911. nitroglycer 2018-05 Yes [id number] 1 tab [facility] in 0.4 mg 0-29 q5min up [facility] of sublingual 00:00: to 3 doses [place] tablet 00 PRN chest Medical pain, then Branch activate 911. nitroglycer 2018-05 Yes [id number] 1 tab [facility] in 0.4 mg 0-29 q5min up [facility] of sublingual 00:00: to 3 doses [place] tablet 00 PRN chest Medical pain, then Branch activate 911. nitroglycer 2018-05 Yes [id number] 1 tab [facility] in 0.4 mg 0-29 q5min up [facility]y of sublingual 00:00: to 3 doses [place] tablet 00 PRN chest Medical pain, then Branch activate 911. nitroglycer 2018-05 Yes [id number] 1 tab [facility] in 0.4 mg 0-29 q5min up ity of sublingual 00:00: to 3 doses [place] tablet 00 PRN chest Medical pain, then Branch activate 911. nitroglycer 2018-05 Yes [id number] 1 tab [facility] in 0.4 mg 0-29 q5min up [facility]y of sublingual 00:00: to 3 doses [place] tablet 00 PRN chest Medical pain, then Branch activate 911. nitroglycer 2018-05 Yes [id number] 1 tab [facility] in 0.4 mg 0-29 q5min up [facility] of sublingual 00:00: to 3 doses [place] tablet 00 PRN chest Medical pain, then Branch activate 911. nitroglycer 2018-05 Yes [id number] 1 tab [facility] in 0.4 mg 0-29 q5min up [facility]y of sublingual 00:00: to 3 doses [place] tablet 00 PRN chest Medical pain, then Branch activate 911. nitroglycer 2018-05 Yes [id number] 1 tab [facility] in 0.4 mg 0-29 q5min up [facility]y of sublingual 00:00: to 3 doses [place] tablet 00 PRN chest Medical pain, then Branch activate 911. nitroglycer 2018-05 Yes [id number] 1 tab [facility] in 0.4 mg 0-29 q5min up [facility]y of sublingual 00:00: to 3 doses [place] tablet 00 PRN chest Medical pain, then Branch activate 911. nitroglycer 2018-05 Yes [id number] 1 tab [facility] in 0.4 mg 0-29 q5min up ity of sublingual 00:00: to 3 doses [place] tablet 00 PRN chest Medical pain, then Branch activate 911. nitroglycer 2018-05 Yes [id number] 1 tab [facility] in 0.4 mg 0-29 q5min up ity of sublingual 00:00: to 3 doses [place] tablet 00 PRN chest Medical pain, then Branch activate 911. nitroglycer 2018-05 Yes [id number] 1 tab [facility] in 0.4 mg 0-29 q5min up ity of sublingual 00:00: to 3 doses [place] tablet 00 PRN chest Medical pain, then Branch activate 911. nitroglycer 2018-05 Yes [id number] 1 tab [facility] in 0.4 mg 0-29 q5min up ity of sublingual 00:00: to 3 doses [place] tablet 00 PRN chest Medical pain, then Branch activate 911. nitroglycer 2018-05 Yes [id number] 1 tab [facility] in 0.4 mg 0-29 q5min up ity of sublingual 00:00: to 3 doses [place] tablet 00 PRN chest Medical pain, then Branch activate 911. atorvastati 2018-05 Yes [id number] 40mg Take 1 [facility] n (LIPITOR) 0-29 tablet by ity of 40 mg 00:00: mouth at [place] tablet 00 bedtime. Medical [facility] clopidogrel 2018-05 Yes [id number] 75mg Take 1 [facility] (PLAVIX) 75 0-29 tablet by ity of mg tablet 00:00: mouth [place] 00 daily. [facility] DULoxetine 2018-05 Yes [id number] 30mg Take 1 [facility] 30 mg 0-29 capsule by [facility] of capsule 00:00: mouth [place] 00 daily. [facility] pantoprazol 2018-05 Yes [id number] 40mg Take 1 [facility] e 40 mg EC 0-29 tablet by [facility] of tablet 00:00: mouth [place] 00 daily. Medical [facility] potassium 2018-05 Yes [id number] 10meq Take 1 [facility] chloride 10 0-29 tablet by [facility] of mEq CR 00:00: mouth [place] tablet 00 daily. [facility] albuterol 2018-05 Yes [id number] 2{puff} Inhale 2 [facility] 90 0-29 Puffs ity of mcg/actuati 00:00: every 6 [place] on inhaler 00 (six) Medical hours as Branch needed for Wheezing or Shortness of Breath. nitroglycer 2018-05 Yes [id number] 1 tab [facility] in 0.4 mg 0-29 q5min up ity of sublingual 00:00: to 3 doses [place] tablet 00 PRN chest Medical pain, then Branch activate 911. atorvastati 2018-05 Yes [id number] 40mg Take 1 [facility] n (LIPITOR) 0-29 tablet by ity of 40 mg 00:00: mouth at [place] tablet 00 bedtime. Medical [facility] clopidogrel 2018-05 Yes [id number] 75mg Take 1 [facility] (PLAVIX) 75 0-29 tablet by [facility]y of mg tablet 00:00: mouth [place] 00 daily. [facility] DULoxetine 2018-05 Yes [id number] 30mg Take 1 [facility] 30 mg 0-29 capsule by [facility] of capsule 00:00: mouth [place] 00 daily. [facility] pantoprazol 2018-05 Yes [id number] 40mg Take 1 [facility] e 40 mg EC 0-29 tablet by [facility] of tablet 00:00: mouth [place] 00 daily. [facility] potassium 2018-05 Yes [id number] 10meq Take 1 [facility] chloride 10 0-29 tablet by [facility] of mEq CR 00:00: mouth [place] tablet 00 daily. [facility] albuterol 2018-05 Yes [id number] 2{puff} Inhale 2 [facility] 90 0-29 Puffs ity of mcg/actuati 00:00: every 6 [place] on inhaler 00 (six) Medical hours as Branch needed for Wheezing or Shortness of Breath. nitroglycer 2018-05 Yes [id number] 1 tab [facility] in 0.4 mg 0-29 q5min up ity of sublingual 00:00: to 3 doses [place] tablet 00 PRN chest Medical pain, then Branch activate 911. atorvastati 2018-05 Yes [id number] 40mg Take 1 [facility] n (LIPITOR) 0-29 tablet by ity of 40 mg 00:00: mouth at [place] tablet 00 bedtime. [facility] clopidogrel 2018-05 Yes [id number] 75mg Take 1 [facility] (PLAVIX) 75 0-29 tablet by [facility]y of mg tablet 00:00: mouth [place] 00 daily. [facility] DULoxetine 2018-05 Yes [id number] 30mg Take 1 [facility] 30 mg 0-29 capsule by ity of capsule 00:00: mouth [place] 00 daily. [facility] pantoprazol 2018-05 Yes [id number] 40mg Take 1 [facility] e 40 mg EC 0-29 tablet by [facility] of tablet 00:00: mouth [place] 00 daily. [facility] potassium 2018-05 Yes [id number] 10meq Take 1 [facility] chloride 10 0-29 tablet by [facility] of mEq CR 00:00: mouth [place] tablet 00 daily. [facility] albuterol 2018-05 Yes [id number] 2{puff} Inhale 2 [facility] 90 0-29 Puffs ity of mcg/actuati 00:00: every 6 [place] on inhaler 00 (six) Medical hours as Branch needed for Wheezing or Shortness of Breath. nitroglycer 2018-05 Yes [id number] 1 tab [facility] in 0.4 mg 0-29 q5min up ity of sublingual 00:00: to 3 doses [place] tablet 00 PRN chest Medical pain, then Branch activate 911. atorvastati 2018-05 Yes [id number] 40mg Take 1 [facility] n (LIPITOR) 0-29 tablet by ity of 40 mg 00:00: mouth at [place] tablet 00 bedtime. [facility] clopidogrel 2018-05 Yes [id number] 75mg Take 1 [facility] (PLAVIX) 75 0-29 tablet by ity of mg tablet 00:00: mouth [place] 00 daily. [facility] DULoxetine 2018-05 Yes [id number] 30mg Take 1 [facility] 30 mg 0-29 capsule by [facility]y of capsule 00:00: mouth [place] 00 daily. [facility] pantoprazol 2018-05 Yes [id number] 40mg Take 1 [facility] e 40 mg EC 0-29 tablet by [facility] of tablet 00:00: mouth [place] 00 daily. [facility] potassium 2018-05 Yes [id number] 10meq Take 1 [facility] chloride 10 0-29 tablet by [facility]y of mEq CR 00:00: mouth [place] tablet 00 daily. [facility] albuterol 2018-05 Yes [id number] 2{puff} Inhale 2 [facility] 90 0-29 Puffs ity of mcg/actuati 00:00: every 6 [place] inhaler 00 (six) Medical hours as Branch needed for Wheezing or Shortness of Breath. nitroglycer 2018-05 Yes [id number] 1 tab [facility] in 0.4 mg 0-29 q5min up ity of sublingual 00:00: to 3 doses [place] tablet 00 PRN chest Medical pain, then Branch activate 911. atorvastati 2018-05 Yes [id number] 40mg Take 1 [facility] n (LIPITOR) 0-29 tablet by ity of 40 mg 00:00: mouth at [place] tablet 00 bedtime. [facility] clopidogrel 2018-05 Yes [id number] 75mg Take 1 [facility] (PLAVIX) 75 0-29 tablet by ity of mg tablet 00:00: mouth [place] 00 daily. [facility] DULoxetine 2018-05 Yes [id number] 30mg Take 1 [facility] 30 mg 0-29 capsule by [facility] of capsule 00:00: mouth [place] 00 daily. [facility] pantoprazol 2018-05 Yes [id number] 40mg Take 1 [facility] e 40 mg EC 0-29 tablet by [facility] of tablet 00:00: mouth [place] 00 daily. [facility] potassium 2018-05 Yes [id number] 10meq Take 1 [facility] chloride 10 0-29 tablet by [facility] of mEq CR 00:00: mouth [place] tablet 00 daily. [facility] albuterol 2018-05 Yes [id number] 2{puff} Inhale 2 [facility] 90 0-29 Puffs ity of mcg/actuati 00:00: every 6 [place] inhaler 00 (six) Medical hours as Branch needed for Wheezing or Shortness of Breath. nitroglycer 2018-05 Yes [id number] 1 tab [facility] in 0.4 mg 0-29 q5min up ity of sublingual 00:00: to 3 doses [place] tablet 00 PRN chest Medical pain, then Branch activate 911. atorvastati 2018-05 Yes [id number] 40mg Take 1 [facility] n (LIPITOR) 0-29 tablet by ity of 40 mg 00:00: mouth at [place] tablet 00 bedtime. [facility] clopidogrel 2018-05 Yes [id number] 75mg Take 1 [facility] (PLAVIX) 75 0-29 tablet by ity of mg tablet 00:00: mouth [place] 00 daily. [facility] DULoxetine 2018-05 Yes [id number] 30mg Take 1 [facility] 30 mg 0-29 capsule by [facility]y of capsule 00:00: mouth [place] 00 daily. [facility] pantoprazol 2018-05 Yes [id number] 40mg Take 1 [facility] e 40 mg EC 0-29 tablet by [facility] of tablet 00:00: mouth [place] 00 daily. [facility] potassium 2018-05 Yes [id number] 10meq Take 1 [facility] chloride 10 0-29 tablet by [facility] of mEq CR 00:00: mouth [place] tablet 00 daily. [facility] albuterol 2018-05 Yes [id number] 2{puff} Inhale 2 [facility] 90 0-29 Puffs ity of mcg/actuati 00:00: every 6 [place] inhaler 00 (six) Medical hours as Branch needed for Wheezing or Shortness of Breath. nitroglycer 2018-05 Yes [id number] 1 tab [facility] in 0.4 mg 0-29 q5min up ity of sublingual 00:00: to 3 doses [place] tablet 00 PRN chest Medical pain, then Branch activate 911. atorvastati 2018-05 Yes [id number] 40mg Take 1 [facility] n (LIPITOR) 0-29 tablet by ity of 40 mg 00:00: mouth at [place] tablet 00 bedtime. [facility] clopidogrel 2018-05 Yes [id number] 75mg Take 1 [facility] (PLAVIX) 75 0-29 tablet by ity of mg tablet 00:00: mouth [place] 00 daily. [facility] DULoxetine 2018-05 Yes [id number] 30mg Take 1 [facility] 30 mg 0-29 capsule by [facility]y of capsule 00:00: mouth [place] 00 daily. [facility] pantoprazol 2018-05 Yes [id number] 40mg Take 1 [facility] e 40 mg EC 0-29 tablet by [facility]y of tablet 00:00: mouth [place] 00 daily. [facility] potassium 2018-05 Yes [id number] 10meq Take 1 [facility] chloride 10 0-29 tablet by [facility]y of mEq CR 00:00: mouth [place] tablet 00 daily. [facility] albuterol 2018-05 Yes [id number] 2{puff} Inhale 2 [facility] 90 0-29 Puffs ity of mcg/actuati 00:00: every 6 [place] inhaler 00 (six) Medical hours as Branch needed for Wheezing or Shortness of Breath. nitroglycer 2018-05 Yes [id number] 1 tab [facility] in 0.4 mg 0-29 q5min up ity of sublingual 00:00: to 3 doses [place] tablet 00 PRN chest Medical pain, then Branch activate 911. DULoxetine 2018-05 Yes [id number] 30mg Take 1 [facility] 30 mg 0-29 capsule by ity of capsule 00:00: mouth [place] 00 daily. [facility] pantoprazol 2018-05 Yes [id number] 40mg Take 1 [facility] e 40 mg EC 0-29 tablet by [facility]y of tablet 00:00: mouth [place] 00 daily. [facility] potassium 2018-05 Yes [id number] 10meq Take 1 [facility] chloride 10 0-29 tablet by [facility]y of mEq CR 00:00: mouth [place] tablet 00 daily. [facility] albuterol 2018-05 Yes [id number] 2{puff} Inhale 2 [facility] 90 0-29 Puffs ity of mcg/actuati 00:00: every 6 [place] inhaler 00 (six) Medical hours as Branch needed for Wheezing or Shortness of Breath. nitroglycer 2018-05 Yes [id number] 1 tab [facility] in 0.4 mg 0-29 q5min up ity of sublingual 00:00: to 3 doses [place] tablet 00 PRN chest Medical pain, then Branch activate 911. DULoxetine 2018-05 Yes [id number] 30mg Take 1 [facility] 30 mg 0-29 capsule by ity of capsule 00:00: mouth [place] 00 daily. [facility] pantoprazol 2018-05 Yes [id number] 40mg Take 1 [facility] e 40 mg EC 0-29 tablet by ity of tablet 00:00: mouth [place] 00 daily. [facility] potassium 2018-05 Yes [id number] 10meq Take 1 [facility] chloride 10 0-29 tablet by ity of mEq CR 00:00: mouth [place] tablet 00 daily. [facility] albuterol 2018-05 Yes [id number] 2{puff} Inhale 2 [facility] 90 0-29 Puffs ity of mcg/actuati 00:00: every 6 [place] inhaler 00 (six) Medical hours as Branch needed for Wheezing or Shortness of Breath. nitroglycer 2018-05 Yes [id number] 1 tab [facility] in 0.4 mg 0-29 q5min up ity of sublingual 00:00: to 3 doses [place] tablet 00 PRN chest Medical pain, then Branch activate 911. DULoxetine 2018-05 Yes [id number] 30mg Take 1 [facility] 30 mg 0-29 [...] Bran ch activate 911. albuterol 2018-05- No [id number] 2{puff} Inhale 2 [facility] 90 0-29 12-19 Puffs ity of mcg/actuati 00:00: 00:00 every 6 [place] on inhaler 00 :00 (six) Medical hours as Branch needed for Wheezing or Shortness of Breath. albuterol 2018-05- No [id number] 2{puff} Inhale 2 [facility] 90 0-29 12-19 Puffs ity of mcg/actuati 00:00: 00:00 every 6 [place] on inhaler 00 :00 (six) Medical hours as Branch needed for Wheezing or Shortness of Breath. pantoprazol 2018-05- No [id number] 40mg Take 1 [facility] e 40 mg EC 0- 06-08 tablet by ity of tablet 00:00: 00:00 mouth [place] 00 :00 daily. [facility] potassium 2018-05 2020- No [id number] 10meq Take 1 [facility] chloride 10 0- 06-08 tablet by it y of mEq CR 00:00: 00:00 mouth [place] tablet 00 :00 daily. [facility] atorvastati 2018-05 2020- No [id number] 40mg Take 1 [facility] n (LIPITOR) 0- 03-20 tablet by it y of 40 mg 00:00: 00:00 mouth at [place] tablet 00 :00 bedtime. [facility] clopidogrel 2018-05 2020- No [id number] 75mg Take 1 [facility] (PLAVIX) 75 0- [...] EC 10 Medical tablet Branch atorvastati Yes [id number] 40mg Take 1 [facility] n (LIPITOR) 7-05 tablet by ity of 40 mg 00:00: mouth at [place] tablet 00 bedtime. [facility] DULoxetine Yes [id number] 30mg Take 1 [facility] n[facility] 30 mg 7-05 capsule by ity of capsule 00:00: mouth [place] 00 daily. [facility] clopidogrel Yes [id number] 75mg Take 1 [facility] (PLAVIX) 75 7-05 tablet by ity of mg tablet 00:00: mouth [place] 00 daily. [facility] furosemide Yes [id number] 20mg Take 1 [facility] n[facility] (LASIX) 20 7-05 tablet by ity of mg tablet 00:00: mouth [place] 00 daily. [facility] isosorbide Yes [id number] 30mg Take 1 [facility] mononitrate 7-05 tablet by ity of 30 mg 24 hr 00:00: mouth [place] tablet 00 daily. [facility] metoprolol Yes [id number] 25mg Take 1 [facility] nivers tartrate 25 7-05 tablet by ity of mg tablet 00:00: mouth [place] 00 daily. [facility] fluconazole 2018- Yes [id number] 150mg Take 1 [facility] (DIFLUCAN) 7-05 tablet by ity of 150 mg 00:00: mouth [place] tablet 00 SEE-INSTRU Medical CTIONS. 1 Branch PO weekly/PRN yeast infection atorvastati 2018- Yes [id number] 40mg Take 1 [facility] n (LIPITOR) 7-05 tablet by ity of 40 mg 00:00: mouth at [place] tablet 00 bedtime. [facility] DULoxetine 2019 Yes [id number] 30mg Take 1 [facility] n[facility] 30 mg 7-05 capsule by ity of capsule 00:00: mouth [place] 00 daily. [facility] clopidogrel Yes [id number] 75mg Take 1 [facility] (PLAVIX) 75 7-05 tablet by ity of mg tablet 00:00: mouth [place] 00 daily. [facility] furosemide Yes [id number] 20mg Take 1 [facility] nivers (LASIX) 20 7-05 tablet by ity of mg tablet 00:00: mouth [place] 00 daily. [facility] isosorbide Yes [id number] 30mg Take 1 [facility] mononitrate 7-05 tablet by ity of 30 mg 24 hr 00:00: mouth [place] tablet 00 daily. [facility] metoprolol Yes [id number] 25mg Take 1 [facility] nivers tartrate 25 7-05 tablet by ity of mg tablet 00:00: mouth [place] 00 daily. [facility] fluconazole Yes [id number] 150mg Take 1 [facility] (DIFLUCAN) 7-05 tablet by ity of 150 mg 00:00: mouth [place] tablet 00 SEE-INSTRU Medical CTIONS. 1 Branch PO weekly/PRN yeast infection atorvastati Yes [id number] 40mg Take 1 [facility] n (LIPITOR) 7-05 tablet by ity of 40 mg 00:00: mouth at [place] tablet 00 bedtime. [facility] DULoxetine Yes [id number] 30mg Take 1 [facility] nivers 30 mg 7-05 capsule by [facility] of capsule 00:00: mouth [place] 00 daily. [facility] clopidogrel Yes [id number] 75mg Take 1 [facility] (PLAVIX) 75 7-05 tablet by ity of mg tablet 00:00: mouth [place] 00 daily. [facility] furosemide Yes [id number] 20mg Take 1 [facility] (LASIX) 20 7-05 tablet by [facility] of mg tablet 00:00: mouth [place] 00 daily. [facility] isosorbide Yes [id number] 30mg Take 1 [facility] mononitrate 7-05 tablet by [facility]y of 30 mg 24 hr 00:00: mouth [place] tablet 00 daily. [facility] metoprolol 2019- Yes [id number] 25mg Take 1 [facility] tartrate 25 7-05 tablet by [facility] of mg tablet 00:00: mouth [place] 00 daily. [facility] fluconazole 2019- Yes [id number] 150mg Take 1 [facility] (DIFLUCAN) 7-05 tablet by ity of 150 mg 00:00: mouth [place] tablet 00 SEE-INSTRU Medical CTIONS. 1 Branch PO weekly/PRN yeast infection atorvastati Yes [id number] 40mg Take 1 [facility] n (LIPITOR) 7-05 tablet by ity of 40 mg 00:00: mouth at [place] tablet 00 bedtime. [facility] DULoxetine Yes [id number] 30mg Take 1 [facility] 30 mg 7-05 capsule by [facility] of capsule 00:00: mouth [place] 00 daily. [facility] clopidogrel Yes [id number] 75mg Take 1 [facility] (PLAVIX) 75 7-05 tablet by [facility]y of mg tablet 00:00: mouth [place] 00 daily. [facility] furosemide 2018- Yes [id number] 20mg Take 1 [facility] (LASIX) 20 7-05 tablet by [facility]y of mg tablet 00:00: mouth [place] 00 daily. [facility] isosorbide Yes [id number] 30mg Take 1 [facility] mononitrate 7-05 tablet by ity of 30 mg 24 hr 00:00: mouth [place] tablet 00 daily. [facility] metoprolol Yes [id number] 25mg Take 1 [facility] tartrate 25 7-05 tablet by [facility]y of mg tablet 00:00: mouth [place] 00 daily. [facility] fluconazole 2018- Yes [id number] 150mg Take 1 [facility] (DIFLUCAN) 7-05 tablet by ity of 150 mg 00:00: mouth [place] tablet 00 SEE-INSTRU Medical CTIONS. 1 Branch PO weekly/PRN yeast infection atorvastati Yes [id number] 40mg Take 1 [facility] n (LIPITOR) 7-05 tablet by ity of 40 mg 00:00: mouth at [place] tablet 00 bedtime. [facility] DULoxetine Yes [id number] 30mg Take 1 [facility] 30 mg 7-05 capsule by [facility] of capsule 00:00: mouth [place] 00 daily. [facility] clopidogrel Yes [id number] 75mg Take 1 [facility] (PLAVIX) 75 7-05 tablet by ity of mg tablet 00:00: mouth [place] 00 daily. [facility] furosemide 2019-0 Yes [id number] 20mg Take 1 [facility] (LASIX) 20 7-05 tablet by ity of mg tablet 00:00: mouth [place] 00 daily. [facility] isosorbide 2019- Yes [id number] 30mg Take 1 [facility] mononitrate 7-05 tablet by ity of 30 mg 24 hr 00:00: mouth [place] tablet 00 daily. [facility] metoprolol 2019- Yes [id number] 25mg Take 1 [facility] tartrate 25 7-05 tablet by [facility]y of mg tablet 00:00: mouth [place] 00 daily. [facility] fluconazole 2019- Yes [id number] 150mg Take 1 [facility] (DIFLUCAN) 7-05 tablet by ity of 150 mg 00:00: mouth [place] tablet 00 SEE-INSTRU Medical CTIONS. 1 Branch PO weekly/PRN yeast infection atorvastati 2019 Yes [id number] 40mg Take 1 [facility] n (LIPITOR) 7-05 tablet by ity of 40 mg 00:00: mouth at [place] tablet 00 bedtime. [facility] DULoxetine 2019-0 Yes [id number] 30mg Take 1 [facility] 30 mg 7-05 capsule by [facility] of capsule 00:00: mouth [place] 00 daily. [facility] clopidogrel 2019-0 Yes [id number] 75mg Take 1 [facility] (PLAVIX) 75 7-05 tablet by ity of mg tablet 00:00: mouth [place] 00 daily. [facility] furosemide 2019- Yes [id number] 20mg Take 1 [facility] (LASIX) 20 7-05 tablet by ity of mg tablet 00:00: mouth [place] 00 daily. [facility] isosorbide 2019- Yes [id number] 30mg Take 1 [facility] mononitrate 7-05 tablet by ity of 30 mg 24 hr 00:00: mouth [place] tablet 00 daily. [facility] metoprolol 2019- Yes [id number] 25mg Take 1 [facility] tartrate 25 7-05 tablet by ity of mg tablet 00:00: mouth [place] 00 daily. [facility] fluconazole 2019-0 Yes [id number] 150mg Take 1 [facility] (DIFLUCAN) 7-05 tablet by ity of 150 mg 00:00: mouth [place] tablet 00 SEE-INSTRU Medical CTIONS. 1 Branch PO weekly/PRN yeast infection atorvastati 2018- Yes [id number] 40mg Take 1 [facility] n (LIPITOR) 7-05 tablet by ity of 40 mg 00:00: mouth at [place] tablet 00 bedtime. [facility] DULoxetine 2019 Yes [id number] 30mg Take 1 [facility] 30 mg 7-05 capsule by ity of capsule 00:00: mouth [place] 00 daily. [facility] clopidogrel Yes [id number] 75mg Take 1 [facility] (PLAVIX) 75 7-05 tablet by ity of mg tablet 00:00: mouth [place] 00 daily. [facility] furosemide Yes [id number] 20mg Take 1 [facility] (LASIX) 20 7-05 tablet by ity of mg tablet 00:00: mouth [place] 00 daily. [facility] isosorbide Yes [id number] 30mg Take 1 [facility] mononitrate 7-05 tablet by ity of 30 mg 24 hr 00:00: mouth [place] tablet 00 daily. [facility] metoprolol Yes [id number] 25mg Take 1 [facility] n[facility] tartrate 25 7-05 tablet by ity of mg tablet 00:00: mouth [place] 00 daily. [facility] fluconazole Yes [id number] 150mg Take 1 [facility] (DIFLUCAN) 7-05 tablet by ity of 150 mg 00:00: mouth [place] tablet 00 SEE-INSTRU Medical CTIONS. 1 Branch PO weekly/PRN yeast infection atorvastati Yes [id number] 40mg Take 1 [facility] n (LIPITOR) 7-05 tablet by ity of 40 mg 00:00: mouth at [place] tablet 00 bedtime. [facility] DULoxetine Yes [id number] 30mg Take 1 [facility] 30 mg 7-05 capsule by ity of capsule 00:00: mouth [place] 00 daily. [facility] clopidogrel Yes [id number] 75mg Take 1 [facility] (PLAVIX) 75 7-05 tablet by ity of mg tablet 00:00: mouth [place] 00 daily. [facility] furosemide Yes [id number] 20mg Take 1 [facility] (LASIX) 20 7-05 tablet by ity of mg tablet 00:00: mouth [place] 00 daily. [facility] isosorbide Yes [id number] 30mg Take 1 [facility] mononitrate 7-05 tablet by ity of 30 mg 24 hr 00:00: mouth [place] tablet 00 daily. [facility] metoprolol Yes [id number] 25mg Take 1 [facility] tartrate 25 7-05 tablet by ity of mg tablet 00:00: mouth [place] 00 daily. [facility] fluconazole 2018- Yes [id number] 150mg Take 1 [facility] (DIFLUCAN) 7-05 tablet by ity of 150 mg 00:00: mouth [place] tablet 00 SEE-INSTRU Medical CTIONS. 1 Branch PO weekly/PRN yeast infection metoprolol Yes [id number] 25mg Take 1 [facility] tartrate 25 7-05 tablet by ity of mg tablet 00:00: mouth [place] 00 daily. [facility] metoprolol Yes [id number] 25mg Take 1 [facility] tartrate 25 7-05 tablet by ity of mg tablet 00:00: mouth [place] 00 daily. [facility] metoprolol Yes [id number] 25mg Take 1 [facility] tartrate 25 7-05 tablet by ity of mg tablet 00:00: mouth [place] 00 daily. [facility] metoprolol Yes [id number] 25mg Take 1 [facility] tartrate 25 7-05 tablet by ity of mg tablet 00:00: mouth [place] 00 daily. [facility] metoprolol Yes [id number] 25mg Take 1 [facility] tartrate 25 7-05 tablet by ity of mg tablet 00:00: mouth [place] 00 daily. [facility] metoprolol Yes [id number] 25mg Take 1 [facility] tartrate 25 7-05 tablet by ity of mg tablet 00:00: mouth [place] 00 daily. [facility] metoprolol Yes [id number] 25mg Take 1 [facility] tartrate 25 7-05 tablet by ity of mg tablet 00:00: mouth [place] 00 daily. [facility] metoprolol 2020- No [id number] 25mg Take 1 [facility] tartrate 25 7-05 03-20 tablet by it y of mg tablet 00:00: 00:00 mouth [place] 00 :00 daily. [facility] isosorbide 2020- No [id number] 30mg Take 1 [facility] mononitrate 7-05 03-09 tablet by it y of 30 mg 24 hr 00:00: 00:00 [place] tablet 00 :00 daily. [facility] isosorbide 2020- No [id number] 30mg Take 1 [facility] mononitrate 11-30 tablet by it y of 30 mg 24 hr 00:00: 00:00 [place] tablet 00 :00 daily. [facility] isosorbide 2020- No [id number] 30mg Take 1 [facility] mononitrate 708-04 tablet by it y of 30 mg [...] mouth ity of LOW DOSE) 18:18: daily. [place] 81 mg EC 24 Medical tablet Branch [...] mouth ity o f tablet 18:18: daily. 24 Medical Branch aspirin Yes 81mg Take [...] mouth ity o f tablet 18:18: daily. [place] 24 [facility] aspirin Yes 81mg Take 81 mg [facility] ers (ASPIRIN 6-19 by mouth ity of LOW DOSE) 18:18: daily. [place] 81 mg EC 24 Medical tablet Branch POTASSIUM Yes 1{tbl} Take 1 [facility] ers CHLORIDE 6-19 tablet by ity of (KLOR-CON 18:18: mouth [place] 10 ORAL) 24 daily. Medical [facility] pantoprazol Yes 40mg Take 40 mg [facility] e 40 mg EC 6-19 by mouth ity o f tablet 18:18: daily. [place] 24 [facility] aspirin Yes 81mg Take 81 mg [facility] ers (ASPIRIN 6-19 by mouth ity of LOW DOSE) 18:18: daily. [place] 81 mg EC 24 Medical tablet Branch POTASSIUM Yes 1{tbl} Take 1 [facility] ers CHLORIDE 6-19 tablet by ity of (KLOR-CON 18:18: mouth [place] 10 ORAL) 24 daily. [facility] pantoprazol Yes 40mg Take 40 mg [facility] e 40 mg EC 6-19 by mouth ity o f tablet 18:18: daily. [place] 24 [facility] aspirin Yes 81mg Take 81 mg [facility] ers (ASPIRIN 6-19 by mouth ity of LOW DOSE) 18:18: daily. [place] 81 mg EC 24 Medical tablet Branch phenazopyri Yes [id number] 200mg Take 1 [facility] dine 200 mg 6-02 tablet by ity of tablet 00:00: mouth 3 [place] (three) Medical times Branch daily. phenazopyri Yes [id number] 200mg Take 1 [facility] dine 200 mg 6-02 tablet by ity of tablet 00:00: mouth 3 [place] (three) Medical times Branch daily. phenazopyri Yes [id number] 200mg Take 1 [facility] dine 200 mg 6-02 tablet by ity of tablet 00:00: mouth 3 [place] (three) Medical times Branch daily. phenazopyri Yes [id number] 200mg Take 1 [facility] dine 200 mg 6-02 tablet by ity of tablet 00:00: mouth 3 [place] (three) Medical times Branch daily. phenazopyri 2019-0 Yes [id number] 200mg Take 1 [facility] dine 200 mg 6-02 tablet by ity of tablet 00:00: mouth 3 (three) Medical times Branch daily. phenazopyri 2018- Yes [id number] 200mg Take 1 [facility] dine 200 mg 6-02 tablet by ity of tablet 00:00: mouth 3 (three) Medical times Branch daily. phenazopyri 2018- Yes [id number] 200mg Take 1 [facility] dine 200 mg 6-02 tablet by ity of tablet 00:00: mouth (three) Medical times Branch daily. phenazopyri 2018- Yes [id number] 200mg Take 1 [facility] dine 200 mg 6-02 tablet by ity of tablet 00:00: mouth 3 (three) Medical times Branch daily. phenazopyri 2018- Yes [id number] 200mg Take 1 [facility] dine 200 mg 6-02 tablet by ity of tablet 00:00: mouth 3 [place] (three) Medical times Branch daily. phenazopyri 2018- Yes [id number] 200mg Take 1 [facility] dine 200 mg 6-02 tablet by ity of tablet 00:00: mouth [place] (three) Medical times Branch daily. phenazopyri 2018- Yes [id number] 200mg Take 1 [facility] dine 200 mg 6-02 tablet by ity of tablet 00:00: mouth [place] (three) Medical times Branch daily. phenazopyri 2018- Yes [id number] 200mg Take 1 [facility] dine 200 mg 6-02 tablet by ity of tablet 00:00: mouth 3 [place] (three) Medical times Branch daily. phenazopyri 2018- Yes [id number] 200mg Take 1 [facility] dine 200 mg 6-02 tablet by ity of tablet 00:00: mouth 3 [place] (three) Medical times Branch daily. phenazopyri 2018-0 Yes [id number] 200mg Take 1 [facility] dine 200 mg 6-02 tablet by ity of tablet 00:00: mouth 3 [place] (three) Medical times Branch daily. phenazopyri 2018-0 Yes [id number] 200mg Take 1 [facility] dine 200 mg 6-02 tablet by ity of tablet 00:00: mouth 3 [place] (three) Medical times Branch daily. phenazopyri 2018-0 Yes [id number] 200mg Take 1 [facility] dine 200 mg 6-02 tablet by ity of tablet 00:00: mouth 3 (three) Medical times Branch daily. phenazopyri 2018-0 Yes [id number] 200mg Take 1 [facility] dine 200 mg 6-02 tablet by ity of tablet 00:00: mouth 3 (three) Medical times Branch daily. phenazopyri 2018-0 Yes [id number] 200mg Take 1 [facility] dine 200 mg 6-02 tablet by ity of tablet 00:00: mouth 3 (three) Medical times Branch daily. phenazopyri Yes [id number] 200mg Take 1 [facility] dine 200 mg 6-02 tablet by ity of tablet 00:00: mouth 3 (three) Medical times Branch daily. phenazopyri 2018-0 Yes [id number] 200mg Take 1 [facility] dine 200 mg 6-02 tablet by ity of tablet 00:00: mouth (three) Medical times Branch daily. phenazopyri Yes [id number] 200mg Take 1 [facility] dine 200 mg 6-02 tablet by ity of tablet 00:00: mouth (three) Medical times Branch daily. phenazopyri 2018- Yes [id number] 200mg Take 1 [facility] dine 200 mg 6-02 tablet by ity of tablet 00:00: mouth (three) Medical times Branch daily. phenazopyri 2018-0 Yes [id number] 200mg Take 1 [facility] dine 200 mg 6-02 tablet by ity of tablet 00:00: mouth (three) Medical times Branch daily. phenazopyri 2018-0 Yes [id number] 200mg Take 1 [facility] dine 200 mg 6-02 tablet by ity of tablet 00:00: mouth (three) Medical times Branch daily. phenazopyri 2018-0 Yes [id number] 200mg Take 1 [facility] dine 200 mg 6-02 tablet by ity of tablet 00:00: mouth 3 (three) Medical times Branch daily. phenazopyri 2018-0 Yes [id number] 200mg Take 1 [facility] dine 200 mg 6-02 tablet by ity of tablet 00:00: mouth 3 (three) Medical times Branch daily. phenazopyri 2018-0 Yes [id number] 200mg Take 1 [facility] dine 200 mg 6-02 tablet by ity of tablet 00:00: mouth 3 [place] (three) Medical times Branch daily. phenazopyri 2019-0 Yes [id number] 200mg Take 1 [facility] dine 200 mg 6-02 tablet by ity of tablet 00:00: mouth 3 [place] 00 (three) Medical times Branch daily. phenazopyri 2018-0 Yes [id number] 200mg Take 1 [facility] dine 200 mg 6-02 tablet by ity of tablet 00:00: mouth 3 [place] (three) Medical times Branch daily. phenazopyri 2018- Yes [id number] 200mg Take 1 [facility] dine 200 mg 6-02 tablet by ity of tablet 00:00: mouth 3 [place] (three) Medical times Branch daily. phenazopyri 2018-0 Yes [id number] 200mg Take 1 [facility] dine 200 mg 6-02 tablet by ity of tablet 00:00: mouth 3 [place] (three) Medical times Branch daily. phenazopyri 2018- Yes [id number] 200mg Take 1 [facility] dine 200 mg 6-02 tablet by ity of tablet 00:00: mouth 3 [place] (three) Medical times Branch daily. phenazopyri Yes [id number] 200mg Take 1 [facility] dine 200 mg 6-02 tablet by ity of tablet 00:00: mouth 3 [place] (three) Medical times Branch daily. phenazopyri 2018-0 Yes [id number] 200mg Take 1 [facility] dine 200 mg 6-02 tablet by ity of tablet 00:00: mouth 3 [place] (three) Medical times Branch daily. phenazopyri 2020- No [id number] 200mg Take 1 [facility] dine 200 mg 6-02 08-14 tablet by it y of tablet 00:00: 00:00 mouth 3 [place] 00 :00 (three) Medical times Branch daily. phenazopyri 2018- 2020- No [id number] 200mg Take 1 [facility] dine 200 mg 6-02 08-14 tablet by it y of tablet 00:00: 00:00 mouth 3 [place] 00 :00 (three) Medical times Branch daily. miSOPROStol Yes [id number] Take one [facility] 200 mcg 5-10 tablet the ity of tablet 00:00: night [place] 00 before Medical procedure, Branch take one table the morning of procedure. miSOPROStol 2018- Yes [id number] Take one [facility] 200 mcg 5-10 tablet the ity of tablet 00:00: night [place] 00 before Medical procedure, Branch take one table the morning of procedure. miSOPROStol 2018- Yes [id number] Take one [facility] 200 mcg 5-10 tablet the ity of tablet 00:00: night [place] 00 before Medical procedure, Branch take one table the morning of procedure. miSOPROStol 2018-0 Yes [id number] Take one [facility] 200 mcg 5-10 tablet the ity of tablet 00:00: night [place] 00 before Medical procedure, Branch take one table the morning of procedure. miSOPROStol 2018- Yes [id number] Take one [facility] 200 mcg 5-10 tablet the ity of tablet 00:00: night [place] 00 before Medical procedure, Branch take one table the morning of procedure. miSOPROStol 2018- Yes [id number] Take one [facility] 200 mcg 5-10 tablet the ity of tablet 00:00: night [place] 00 before Medical procedure, Branch take one table the morning of procedure. miSOPROStol 2019- No [id number] Take one [facility] 200 mcg 5-10 09-09 tablet the ity o f tablet 00:00: 00:00 night [place] 00 :00 before Medical procedure, Branch take one table the morning of procedure. miSOPROStol 2019- No [id number] Take one [facility] 200 mcg 5-10 09-09 tablet the ity o f tablet 00:00: 00:00 night [place] 00 :00 before Medical procedure, Branch take one table the morning of procedure. escitalopra Yes [id number] 10mg Take 1 [facility] m oxalate 4-30 tablet by ity o f (LEXAPRO) 00:00: mouth [place] 10 mg 00 daily. Medical tablet [place] escitalopra Yes [id number] 10mg Take 1 [facility] m oxalate 4-30 tablet by ity o f (LEXAPRO) 00:00: mouth [place] 10 mg 00 daily. Medical tablet [place] escitalopra Yes [id number] 10mg Take 1 [facility] m oxalate 4-30 tablet by ity o f (LEXAPRO) 00:00: mouth [place] 10 mg 00 daily. Medical tablet [place] escitalopra Yes [id number] 10mg Take 1 [facility] m oxalate 4-30 tablet by ity o f (LEXAPRO) 00:00: mouth [place] 10 mg 00 daily. Medical tablet Branch escitalopra 2018- Yes [id number] 10mg Take 1 [facility] m oxalate 4-30 tablet by ity o f (LEXAPRO) 00:00: mouth [place] 10 mg 00 daily. Medical tablet Branch escitalopra 2018- Yes [id number] 10mg Take 1 [facility] m oxalate 4-30 tablet by ity o f (LEXAPRO) 00:00: mouth [place] 10 mg 00 daily. Medical tablet Branch escitalopra 2019- No [id number] 10mg Take 1 [facility] m oxalate 4-30 09-09 tablet by ity of (LEXAPRO) 00:00: 00:00 mouth [place] 10 mg 00 :00 daily. Medical tablet Branch escitalopra 2018- 2019- No [id number] 10mg Take 1 [facility] m oxalate 4-30 09-09 tablet by ity of (LEXAPRO) 00:00: 00:00 mouth [place] 10 mg 00 :00 daily. Medical tablet Branch Nitrofurant 2019-0 Yes [id number] 100mg Take 1 [facility] oin&Nit. 4-25 capsule by ity o f Macrocryst 00:00: mouth [place] (MACROBID) 00 daily. Medical 100 mg Branch capsule Nitrofurant 2018-0 Yes [id number] 100mg Take 1 [facility] oin&Nit. 4-25 capsule by ity o f Macrocryst 00:00: mouth [place] (MACROBID) 00 daily. Medical 100 mg Branch capsule Nitrofurant 2019-0 Yes [id number] 100mg Take 1 [facility] oin&Nit. 4-25 capsule by ity o f Macrocryst 00:00: mouth [place] (MACROBID) 00 daily. Medical 100 mg Branch capsule Nitrofurant 2019-0 Yes [id number] 100mg Take 1 [facility] oin&Nit. 4-25 capsule by ity o f Macrocryst 00:00: mouth [place] (MACROBID) 00 daily. Medical 100 mg Branch capsule Nitrofurant 2019-0 Yes [id number] 100mg Take 1 [facility] oin&Nit. 4-25 capsule by ity o f Macrocryst 00:00: mouth [place] (MACROBID) 00 daily. Medical 100 mg Branch capsule Nitrofurant 2019-0 Yes [id number] 100mg Take 1 [facility] oin&Nit. 4-25 capsule by ity o f Macrocryst 00:00: mouth [place] (MACROBID) 00 daily. Medical 100 mg Branch capsule Nitrofurant 2019-0 Yes 100mg Take 1 [facility] oin&Nit. 4-25 capsule by ity o f Macrocryst 00:00: mouth [place] (MACROBID) 00 daily. Medical 100 mg Branch capsule Nitrofurant 2019-0 Yes [id number] 100mg Take 1 [facility] oin&Nit. 4-25 capsule [...] 100 mg Branch capsule Nitrofurant 2019-0 Yes [id number] 100mg Take 1 [facility] oin&Nit. 4-25 capsule by ity o f Macrocryst 00:00: mouth [place] (MACROBID) 00 daily. Medical 100 mg Branch capsule Nitrofurant 2019-0 Yes [id number] 100mg Take 1 [facility] oin&Nit. 4-25 capsule by ity o f Macrocryst 00:00: mouth [place] (MACROBID) 00 daily. Medical 100 mg Branch capsule Nitrofurant 2019-0 Yes [id number] 100mg Take 1 [facility] oin&Nit. 4-25 capsule by ity o f Macrocryst 00:00: mouth [place] (MACROBID) 00 daily. Medical 100 mg Branch capsule Nitrofurant 2018-0 Yes [id number] 100mg Take 1 [facility] oin&Nit. 4-25 capsule by ity o f Macrocryst 00:00: mouth [place] (MACROBID) 00 daily. Medical 100 mg Branch capsule Nitrofurant 2019-0 Yes [id number] 100mg Take 1 [facility] oin&Nit. 4-25 capsule by ity o f Macrocryst 00:00: mouth [place] (MACROBID) 00 daily. Medical 100 mg Branch capsule Nitrofurant 2018-0 Yes [id number] 100mg Take 1 [facility] oin&Nit. 4-25 capsule by ity o f Macrocryst 00:00: mouth [place] (MACROBID) 00 daily. Medical 100 mg Branch capsule Nitrofurant 2019-0 Yes [id number] 100mg Take 1 [facility] oin&Nit. 4-25 capsule by ity o f Macrocryst 00:00: mouth [place] (MACROBID) 00 daily. Medical 100 mg Branch capsule Nitrofurant 2019-0 Yes [id number] 100mg Take 1 [facility] oin&Nit. 4-25 capsule by ity o f Macrocryst 00:00: mouth [place] (MACROBID) 00 daily. Medical 100 mg Branch capsule Nitrofurant 2019-0 Yes [id number] 100mg Take 1 [facility] oin&Nit. 4-25 capsule by ity o f Macrocryst 00:00: mouth [place] (MACROBID) 00 daily. Medical 100 mg Branch capsule Nitrofurant 2019-0 Yes [id number] 100mg Take 1 [facility] oin&Nit. 4-25 capsule by ity o f Macrocryst 00:00: mouth [place] (MACROBID) 00 daily. Medical 100 mg Branch capsule Nitrofurant 2019-0 Yes [id number] 100mg Take 1 [facility] oin&Nit. 4-25 capsule by ity o f Macrocryst 00:00: mouth [place] (MACROBID) 00 daily. Medical 100 mg Branch capsule Nitrofurant 2019-0 Yes [id number] 100mg Take 1 [facility] oin&Nit. 4-25 capsule by ity o f Macrocryst 00:00: mouth [place] (MACROBID) 00 daily. Medical 100 mg Branch capsule Nitrofurant 2019-0 Yes [id number] 100mg Take 1 [facility] oin&Nit. 4-25 capsule by ity o f Macrocryst 00:00: mouth [place] (MACROBID) 00 daily. Medical 100 mg Branch capsule Nitrofurant 2019-0 Yes [id number] 100mg Take 1 [facility] oin&Nit. 4-25 capsule by ity o f Macrocryst 00:00: mouth [place] (MACROBID) 00 daily. Medical 100 mg Branch capsule Nitrofurant 2018-0 Yes [id number] 100mg Take 1 [facility] oin&Nit. 4-25 capsule by ity o f Macrocryst 00:00: mouth [place] (MACROBID) 00 daily. Medical 100 mg Branch capsule Nitrofurant 2019-0 Yes [id number] 100mg Take 1 [facility] oin&Nit. 4-25 capsule by ity o f Macrocryst 00:00: mouth [place] (MACROBID) 00 daily. Medical 100 mg Branch capsule Nitrofurant 2019-0 Yes [id number] 100mg Take 1 [facility] oin&Nit. 4-25 capsule by ity o f Macrocryst 00:00: mouth [place] (MACROBID) 00 daily. Medical 100 mg Branch capsule Nitrofurant 2019-0 Yes [id number] 100mg Take 1 [facility] oin&Nit. 4-25 capsule by ity o f Macrocryst 00:00: mouth [place] (MACROBID) 00 daily. Medical 100 mg Branch capsule Nitrofurant 2019-0 2020- No [id number] 100mg Take 1 [facility] oin&Nit. 4-25 08-14 capsule by ity of Macrocryst 00:00: 00:00 mouth [place] (MACROBID) 00 :00 daily. Medical 100 mg Branch capsule Nitrofurant 2019-0 2020- No [id number] 100mg Take 1 [facility] oin&Nit. 09-20 08-14 capsule by ity of Macrocryst 00:00: 00:00 mouth [place] (MACROBID) 00 :00 daily. Medical 100 mg Branch capsule levoFLOXaci 2019-0 Yes Univer s n 500 mg 4-23 ity of tablet 00:00: [place] 00 Medical Branch sulfamethox 2019-0 Yes Univer s azole-trime 4-23 ity of thoprim 00:00: [place] 800-160 mg 00 Medical per tablet Branch levoFLOXaci 2019-0 Yes Univer s n 500 mg 4-23 ity of tablet 00:00: [place] 00 Medical Branch sulfamethox 2019-0 Yes Univer s azole-trime 4-23 ity of thoprim 00:00: [place] 800-160 mg 00 Medical per tablet Branch levoFLOXaci 2019-0 Yes Univer s n 500 mg 4-23 ity of tablet 00:00: [place] 00 Medical Branch sulfamethox 2019-0 Yes Univer s azole-trime 4-23 ity of thoprim 00:00: [place] 800-160 mg 00 Medical per tablet Branch levoFLOXaci 2019-0 Yes Univer s n 500 mg 4-23 ity of tablet 00:00: [place] 00 Medical Branch sulfamethox 2019-0 Yes Univer s azole-trime 4-23 ity of thoprim 00:00: [place] 800-160 mg 00 Medical per tablet Branch levoFLOXaci 2019-0 Yes Univer s n 500 mg 4-23 ity of tablet 00:00: [place] 00 Medical Branch sulfamethox 2019-0 Yes Univer s azole-trime 4-23 ity of thoprim 00:00: [place] 800-160 mg 00 Medical per tablet Branch levoFLOXaci 2019-0 Yes Univer s n 500 mg 4-23 ity of tablet 00:00: [place] 00 Medical Branch sulfamethox 2019-0 Yes Univer s azole-trime 4-23 ity of thoprim 00:00: [place] 800-160 mg 00 Medical per tablet Branch sulfamethox 2019-0 Yes Univer s azole-trime 4-23 ity of thoprim 00:00: [place] 800-160 mg 00 Medical per tablet Branch sulfamethox 2019-0 Yes Univer s azole-trime 09-18 ity of thoprim 00:00: [place] 800-160 mg 00 Medical per tablet Branch levoFLOXaci 2019-0 2019- No Unive rs n 500 mg 09-18 ity of tablet 00:00: 00:00 [place] 00 :00 Medical Branch levoFLOXaci 2019-0 2019- No Unive rs n 500 mg 09-18 ity of tablet 00:00: 00:00 [place] 00 :00 Medical Branch levETIRAcet 2019-0 Yes Univer s am 500 mg 4-06 ity of tablet 00:00: [place] 00 Medical Branch levETIRAcet 2019-0 Yes Univer s am 500 mg 4-06 ity of tablet 00:00: [place] 00 Medical Branch levETIRAcet 2019-0 Yes Univer s am 500 mg 4-06 ity of tablet 00:00: [place] [id number] Medical Branch levETIRAcet 2019-0 Yes Univer s am 500 mg 4-06 ity of tablet 00:00: [place] 00 Medical Branch levETIRAcet 2019-0 Yes Univer s am 500 mg 4-06 ity of tablet 00:00: [place] [address] Medical Branch levETIRAcet 2019-0 Yes Univer s am 500 mg 4-06 ity of tablet 00:00: [place] 00 Medical Branch levETIRAcet 2019-0 Yes Univer s am 500 mg 4-06 ity of tablet 00:00: [place] 00 Medical Branch levETIRAcet 2019-0 Yes Univer s am 500 mg 4-06 ity of tablet 00:00: [place] 00 Medical Branch levETIRAcet 2019-0 Yes Univer s am 500 mg 4-06 ity of tablet 00:00: [place] 00 Medical Branch levETIRAcet 2019-0 Yes Univer s am 500 mg 4-06 ity of tablet 00:00: [place] [facility] levETIRAcet 2019-0 Yes Univer s am 500 mg 4-06 ity of tablet 00:00: [place] [facility] levETIRAcet 2019-0 Yes Univer s am 500 mg 4-06 ity of tablet 00:00: [place] [facility] levETIRAcet 2019-0 Yes Univer [...] 500 mg 4-06 ity of tablet 00:00: [place] [facility] levETIRAcet 2019-0 Yes Univer s am 500 mg 4-06 ity of tablet 00:00: [place] [facility] levETIRAcet 2019-0 Yes Univer s am 500 mg 4-06 ity of tablet 00:00: [place] [facility] levETIRAcet 2019-0 Yes Univer s am 500 mg 4-06 ity of tablet 00:00: [place] [facility] levETIRAcet 2019-0 Yes Univer s am 500 mg 4-06 ity of tablet 00:00: [place] [facility] levETIRAcet 2019-0 Yes Univer s am 500 mg 4-06 ity of tablet 00:00: [place] [facility] levETIRAcet 2019-0 Yes Univer s am 500 mg 4-06 ity of tablet 00:00: [place] [facility] levETIRAcet 2019-0 Yes Univer s am 500 mg 4-06 ity of tablet 00:00: [place] [facility] levETIRAcet 2019-0 Yes Univer s am 500 mg 4-06 ity of tablet 00:00: [place] [facility] levETIRAcet 2019-0 Yes Univer s am 500 mg 4-06 ity of tablet 00:00: [place] [facility] levETIRAcet 2019-0 2020- No Unive rs am 500 mg 4-11 03-14 ity of tablet 00:00: 00:00 [place] 00 :00 [facility] levETIRAcet 2019-0 2020- No Unive rs am 500 mg 4-11 03-14 ity of tablet 00:00: 00:00 [place] 00 :00 [facility] gabapentin 2019-0 Yes [id number] 800mg Take 1 [facility] 800 mg 4-05 tablet by ity of tablet 00:00: mouth 3 [place] 00 (three) Medical times Branch daily. metFORMIN 2019-0 Yes 1000mg Take 2 Univ ers 500 mg 4-05 tablets by ity of tablet 00:00: mouth (two) Medical times Branch daily with meals. You can do two pills in the morning and one in the evening. gabapentin 2019-0 Yes [id number] 800mg Take 1 [facility] 800 mg 4-05 tablet by ity of tablet 00:00: mouth 3 (three) Medical times Branch daily. metFORMIN 2019-0 Yes 1000mg Take 2 Univ ers 500 mg 4-05 tablets by ity of tablet 00:00: mouth (two) Medical times Branch daily with meals. You can do two pills in the morning and one in the evening. gabapentin 2019-0 Yes [id number] 800mg Take 1 [facility] 800 mg 4-05 tablet by ity of tablet 00:00: mouth (three) Medical times Branch daily. metFORMIN 2019-0 Yes 1000mg Take 2 Univ ers 500 mg 4-05 tablets by ity of tablet 00:00: mouth (two) Medical times Branch daily with meals. You can do two pills in the morning and one in the evening. gabapentin 2019-0 Yes [id number] 800mg Take 1 [facility] 800 mg 4-05 [...] one in the evening. gabapentin 2019-0 Yes [id number] 800mg Take 1 [facility] 800 mg 4-05 [...] injection breakfast and dinner. gabapentin 2019-0 Yes [id number] 800mg Take 1 [facility] 800 mg 4-05 [...] injection breakfast and dinner. gabapentin 2019-0 Yes [id number] 800mg Take 1 [facility] 800 mg 4-05 [...] injection breakfast and dinner. gabapentin 2019-0 Yes [id number] 800mg Take 1 [facility] 800 mg 4-05 [...] injection breakfast and dinner. gabapentin 2019-0 Yes [id number] 800mg Take 1 [facility] 800 mg 4-05 [...] injection breakfast and dinner. gabapentin 2019-0 Yes [id number] 800mg Take 1 [facility] 800 mg 4-05 [...] injection breakfast and dinner. gabapentin 2019-0 Yes [id number] 800mg Take 1 [facility] 800 mg 4-05 [...] injection breakfast and dinner. gabapentin 2019-0 Yes [id number] 800mg Take 1 [facility] 800 mg 4-05 [...] injection breakfast and dinner. gabapentin 2019-0 Yes [id number] 800mg Take 1 [facility] 800 mg 4-05 tablet by ity of tablet 00:00: mouth (three) Medical times Branch daily. metFORMIN 2019-0 Yes 1000mg Take 2 Univ ers 500 mg 4-05 tablets by ity of tablet 00:00: mouth (two) Medical times Branch daily with meals. You can do two pills in the morning and one in the evening. gabapentin 2019-0 Yes [id number] 800mg Take 1 [facility] 800 mg 4-05 tablet by ity of tablet 00:00: mouth (three) Medical times Branch daily. metFORMIN 2019-0 Yes 1000mg Take 2 Univ ers 500 mg 4-05 tablets by ity of tablet 00:00: mouth (two) Medical times Branch daily with meals. You can do two pills in the morning and one in the evening. gabapentin 2019-0 Yes [id number] 800mg Take 1 [facility] 800 mg 4-05 tablet by ity of tablet 00:00: mouth (three) Medical times Branch daily. metFORMIN 2019-0 Yes 1000mg Take 2 Univ ers 500 mg 4-05 tablets by ity of tablet 00:00: mouth (two) Medical times Branch daily with meals. You can do two pills in the morning and one in the evening. gabapentin 2019-0 Yes [id number] 800mg Take 1 [facility] 800 mg 4-05 tablet by ity of tablet 00:00: mouth (three) Medical times Branch daily. metFORMIN 2019-0 Yes 1000mg Take 2 Univ ers 500 mg 4-05 tablets by ity of tablet 00:00: mouth (two) Medical times Branch daily with meals. You can do two pills in the morning and one in the evening. gabapentin 2019-0 Yes [id number] 800mg Take 1 [facility] 800 mg 4-05 tablet by ity of tablet 00:00: mouth (three) Medical times Branch daily. metFORMIN 2019-0 Yes 1000mg Take 2 Univ ers 500 mg 4-05 tablets by ity of tablet 00:00: mouth (two) Medical times Branch daily with meals. You can do two pills in the morning and one in the evening. gabapentin 2019-0 Yes [id number] 800mg Take 1 [facility] 800 mg 4-05 tablet by ity of tablet 00:00: mouth (three) Medical times Branch daily. metFORMIN 2019-0 Yes 1000mg Take 2 Univ ers 500 mg 4-05 tablets by ity of tablet 00:00: mouth (two) Medical times Branch daily with meals. You can do two pills in the morning and one in the evening. gabapentin 2019-0 Yes [id number] 800mg Take 1 [facility] 800 mg 4-05 tablet by ity of tablet 00:00: mouth (three) Medical times Branch daily. metFORMIN 2019-0 Yes 1000mg Take 2 Univ ers 500 mg 4-05 tablets by ity of tablet 00:00: mouth (two) Medical times Branch daily with meals. You can do two pills in the morning and one in the evening. gabapentin 2019-0 Yes [id number] 800mg Take 1 [facility] 800 mg 4-05 tablet by ity of tablet 00:00: mouth (three) Medical times Branch daily. metFORMIN 2019-0 Yes 1000mg Take 2 Univ ers 500 mg 4-05 tablets by ity of tablet 00:00: mouth (two) Medical times Branch daily with meals. You can do two pills in the morning and one in the evening. gabapentin 2019-0 Yes [id number] 800mg Take 1 [facility] 800 mg 4-05 tablet by ity of tablet 00:00: mouth (three) Medical times Branch daily. metFORMIN 2019-0 Yes 1000mg Take 2 Univ ers 500 mg 4-05 tablets by ity of tablet 00:00: mouth (two) Medical times Branch daily with meals. You can do two pills in the morning and one in the evening. gabapentin 2019- Yes [id number] 800mg Take 1 [facility] 800 mg 4-05 tablet by ity of tablet 00:00: mouth 3 [place] 00 (three) Medical times Branch daily. metFORMIN 2019-0 [...] one in the evening. gabapentin 2020- No [id number] 800mg Take 1 [facility] 800 mg 4-05 05-05 tablet by ity of tablet 00:00: 00:00 mouth 3 [place] 00 :00 (three) Medical times Branch daily. gabapentin 2018- 2020- No [id number] 800mg Take 1 [facility] 800 mg 4-05 05-05 tablet by ity of tablet 00:00: 00:00 mouth 3 [place] 00 :00 (three) Medical times Branch daily. gabapentin 2020- No [id number] 800mg Take 1 [facility] 800 mg 4-05 [...] (two) Medical tablet times Branch daily. Insulin 2017- Yes [id number] Use as Uni vers Syringe-Nee 3-30 directed ity of dle U-100 00:00: [place] (INSULIN 00 Medical SYRINGE) 1 Branch mL 30 gauge x 5/16 Syrg Insulin 2017-0 Yes [id number] Use as Uni vers Syringe-Nee 3-30 directed ity of dle U-100 00:00: [place] (INSULIN 00 Medical SYRINGE) 1 Branch mL 30 gauge x 5/16 Syrg Insulin 2017-0 Yes [id number] Use as Uni vers Syringe-Nee 3-30 directed ity of dle U-100 00:00: [place] (INSULIN 00 Medical SYRINGE) 1 Branch mL 30 gauge x 5/16 Syrg Insulin 2018-0 Yes [id number] Use as Uni vers Syringe-Nee 3-30 directed ity of dle U-100 00:00: [place] (INSULIN 00 Medical SYRINGE) 1 Branch mL 30 gauge x 5/16 Syrg Insulin 2018-0 Yes [id number] Use as Uni vers Syringe-Nee 3-30 directed ity of dle U-100 00:00: [place] (INSULIN 00 Medical SYRINGE) 1 Branch mL 30 gauge x 5/16 Syrg Insulin 2018-0 Yes [id number] Use as Uni vers Syringe-Nee 3-30 directed ity of dle U-100 00:00: [place] (INSULIN 00 Medical SYRINGE) 1 Branch mL 30 gauge x 5/16 Syrg Insulin 2018-0 Yes [id number] Use as Uni vers Syringe-Nee 3-30 directed ity of dle U-100 00:00: [place] (INSULIN 00 Medical SYRINGE) 1 Branch mL 30 gauge x 5/16 Syrg Insulin 2017-0 Yes [id number] Use as Uni vers Syringe-Nee 3-30 directed ity of dle U-100 00:00: [place] (INSULIN 00 Medical SYRINGE) 1 Branch mL 30 gauge x 5/16 Syrg Insulin 2017-0 Yes [id number] Use as Uni vers Syringe-Nee 3-30 directed ity of dle U-100 00:00: [place] (INSULIN 00 Medical SYRINGE) 1 Branch mL 30 gauge x 5/16 Syrg Insulin 2017-0 Yes [id number] Use as Uni vers Syringe-Nee 3-30 directed ity of dle U-100 00:00: [place] (INSULIN 00 Medical SYRINGE) 1 Branch mL 30 gauge x 5/16 Syrg Insulin 2017-0 Yes [id number] Use as Uni vers Syringe-Nee 3-30 directed ity of dle U-100 00:00: [place] (INSULIN 00 Medical SYRINGE) 1 Branch mL 30 gauge x 5/16 Syrg Insulin 2017-0 Yes [id number] Use as Uni vers Syringe-Nee 3-30 directed ity of dle U-100 00:00: [place] (INSULIN 00 Medical SYRINGE) 1 Branch mL 30 gauge x 5/16 Syrg Insulin 2018-0 Yes [id number] Use as Uni vers Syringe-Nee 3-30 directed ity of dle U-100 00:00: [place] (INSULIN 00 Medical SYRINGE) 1 Branch mL 30 gauge x 5/16 Syrg Insulin 2018-0 Yes [id number] Use as Uni vers Syringe-Nee 3-30 directed ity of dle U-100 00:00: [place] (INSULIN 00 Medical SYRINGE) 1 Branch mL 30 gauge x 5/16 Syrg Insulin 2018-0 Yes [id number] Use as Uni vers Syringe-Nee 3-30 directed ity of dle U-100 00:00: [place] (INSULIN 00 Medical SYRINGE) 1 Branch mL 30 gauge x 5/16 Syrg Insulin 2018-0 Yes [id number] Use as Uni vers Syringe-Nee 3-30 directed ity of dle U-100 00:00: [place] (INSULIN 00 Medical SYRINGE) 1 Branch mL 30 gauge x 5/16 Syrg Insulin 2018-0 Yes [id number] Use as Uni vers Syringe-Nee 3-30 directed ity of dle U-100 00:00: [place] (INSULIN 00 Medical SYRINGE) 1 Branch mL 30 gauge x 5/16 Syrg Insulin 2018-0 Yes [id number] Use as Uni vers Syringe-Nee 3-30 directed ity of dle U-100 00:00: [place] (INSULIN 00 Medical SYRINGE) 1 Branch mL 30 gauge x 5/16 Syrg Insulin 2017-0 Yes [id number] Use as Uni vers Syringe-Nee 3-30 directed ity of dle U-100 00:00: [place] (INSULIN 00 Medical SYRINGE) 1 Branch mL 30 gauge x 5/16 Syrg Insulin 2017-0 Yes [id number] Use as Uni vers Syringe-Nee 3-30 directed ity of dle U-100 00:00: [place] (INSULIN 00 Medical SYRINGE) 1 Branch mL 30 gauge x 5/16 Syrg Insulin 2018-0 Yes [id number] Use as Uni vers Syringe-Nee 3-30 directed ity of dle U-100 00:00: [place] (INSULIN 00 Medical SYRINGE) 1 Branch mL 30 gauge x 5/16 Syrg Insulin 2018-0 Yes [id number] Use as Uni vers Syringe-Nee 3-30 directed ity of dle U-100 00:00: [place] (INSULIN 00 Medical SYRINGE) 1 Branch mL 30 gauge x 5/16 Syrg Insulin 2018-0 Yes [id number] Use as Uni vers Syringe-Nee 3-30 directed ity of dle U-100 00:00: [place] (INSULIN 00 Medical SYRINGE) 1 Branch mL 30 gauge x 5/16 Syrg Insulin 2018-0 Yes [id number] Use as Uni vers Syringe-Nee 3-30 directed ity of dle U-100 00:00: [place] (INSULIN 00 Medical SYRINGE) 1 Branch mL 30 gauge x 5/16 Syrg Insulin 2018-0 Yes [id number] Use as Uni vers Syringe-Nee 3-30 directed ity of dle U-100 00:00: [place] (INSULIN 00 Medical SYRINGE) 1 Branch mL 30 gauge x 5/16 Syrg Insulin 2018-0 Yes [id number] Use as Uni vers Syringe-Nee 3-30 directed ity of dle U-100 00:00: [place] (INSULIN 00 Medical SYRINGE) 1 Branch mL 30 gauge x 5/16 Syrg Insulin 2018-0 Yes [id number] Use as Uni vers Syringe-Nee 3-30 directed ity of dle U-100 00:00: [place] (INSULIN 00 Medical SYRINGE) 1 Branch mL 30 gauge x 5/16 Syrg Insulin 2018-0 Yes [id number] Use as Uni vers Syringe-Nee 3-30 directed ity of dle U-100 00:00: [place] (INSULIN 00 Medical SYRINGE) 1 Branch mL 30 gauge x 5/16 Syrg Insulin 2017-0 Yes [id number] Use as Uni vers Syringe-Nee 3-30 directed ity of dle U-100 00:00: [place] (INSULIN 00 Medical SYRINGE) 1 Branch mL 30 gauge x 5/16 Syrg Insulin 2018-0 Yes [id number] Use as Uni vers Syringe-Nee 3-30 directed ity of dle U-100 00:00: [place] (INSULIN 00 Medical SYRINGE) 1 Branch mL 30 gauge x 5/16 Syrg Insulin 2018-0 Yes [id number] Use as Uni vers Syringe-Nee 3-30 directed ity of dle U-100 00:00: [place] (INSULIN 00 Medical SYRINGE) 1 Branch mL 30 gauge x 5/16 Syrg Insulin 2018-0 Yes [id number] Use as Uni vers Syringe-Nee 3-30 directed ity of dle U-100 00:00: [place] (INSULIN 00 Medical SYRINGE) 1 Branch mL 30 gauge x 5/16 Syrg Insulin 2018-0 Yes [id number] Use as Uni vers Syringe-Nee 3-30 directed ity of dle U-100 00:00: [place] (INSULIN 00 Medical SYRINGE) 1 Branch mL 30 gauge x 5/16 Syrg Insulin 2018-0 Yes [id number] Use as Uni vers Syringe-Nee 3-30 directed ity of dle U-100 00:00: [place] (INSULIN 00 Medical SYRINGE) 1 Branch mL 30 gauge x 5/16 Syrg Insulin 2018-0 2020- No [id number] Use as Un cali Syringe-Nee 08-25 directed ity of dle U-100 00:00: 00:00 [place] (INSULIN 00 :00 Medical SYRINGE) 1 Branch mL 30 gauge x 5/16 Syrg Insulin 2020- No [id number] Use as Un cali Syringe-Nee 08-25 directed ity of dle U-100 00:00: 00:00 [place] (INSULIN 00 :00 Medical SYRINGE) 1 Branch [...] with [facility] Ranexa Ranexa Yes [facility] Insulin Insulin Yes Dada [address] [facility] [address] Aspart Prot Aspart Prot [facility] Aspirin Aspirin Yes Dada [address] [facility] Gabapentin Gabapentin Yes Dada [address] [facility] Furosemide [...] HCl HCl [facility] Levetiracet Levetiracet Yes Dada [address] [facility] [address] [facility] [place]ada [address] [facility] [address] [facility] [...] Immunizations Ordered Filled Immunization Date Status Comments [facility] e Immunization Name Name SARS-COV-2 COVID-19 2021-01-17 Completed Unive rsity of PFIZER VACCINE 00:00:00 [facility] SARS-COV-2 COVID-19 2021-01-17 Completed Unive rsity of PFIZER VACCINE 00:00:00 [facility] SARS-COV-2 COVID-19 2021-01-17 Completed Unive rsity of PFIZER VACCINE 00:00:00 [facility] SARS-COV-2 COVID-19 2021-01-17 Completed Unive rsity of PFIZER VACCINE 00:00:00 [facility] SARS-COV-2 COVID-19 2021-01-17 Completed Unive rsity of PFIZER VACCINE 00:00:00 [facility] SARS-COV-2 COVID-19 2021-01-17 Completed Unive rsity of PFIZER VACCINE 00:00:00 [facility] Vital Signs Vital Name Observation Time Observation Value Comments Source Systolic blood 2021-02-12 19:25:00 123 mm[Hg] Univer sity of pressure [facility] Diastolic blood 2021-02-12 19:25:00 80 mm[Hg] Unive rsity of pressure [facility] Heart rate 2021-02-12 19:25:00 87 /min [facility] Body temperature 2021-02-12 19:25:00 36.83 [place] [facility] 2021-02-12 19:25:00 16 /min [facility] ersity [facility] [place] [facility] Body height 2021-02-12 19:25:00 162.6 cm [facility] [place] [facility] Body weight 2021-02-12 19:25:00 64.864 kg [facility] [place] [facility] BMI 2021-02-12 19:25:00 24.55 kg/m2 [facility] [place] [facility] Oxygen saturation in 2021-02-12 19:25:00 99 /min University of Arterial blood by [place] [employer] [facility] Pulse oximetry Branch Systolic blood 2021-02-12 18:15:00 108 mm[Hg] Univer sity of pressure [place] [facility] Diastolic blood 2021-02-12 18:15:00 73 mm[Hg] Unive rsity of pressure [place] [facility] Heart rate 2021-02-12 18:15:00 59 /min [facility] [place] [facility] Respiratory rate 2021-02-12 18:15:00 18 /min Univ ersity of [place] [facility] Body height 2021-02-12 18:15:00 162.6 cm [facility] [place] [facility] Body weight 2021-02-12 18:15:00 64.864 kg [facility] [place] [facility] BMI 2021-02-12 18:15:00 24.55 kg/m2 [facility] [place] [facility] Systolic blood 2021-01-17 17:22:00 129 mm[Hg] Univer sity of pressure [place] [facility] Diastolic blood 2021-01-17 17:22:00 83 mm[Hg] Unive rsity of pressure [place] [facility] Heart rate 2021-01-17 17:22:00 85 /min [facility] [place] [facility] Body temperature 2021-01-17 17:22:00 36.06 [place] Univ ersity of [place] [facility] Respiratory rate 2021-01-17 17:22:00 16 /min Univ ersity of [place] [facility] Oxygen saturation in 2021-01-17 17:22:00 95 /min University of Arterial blood by [facility] Pulse oximetry Branch Body height 2021-01-15 21:03:00 162.6 cm [facility] [place] [facility] Body weight 2021-01-15 21:03:00 62.46 kg [facility] [place] [facility] BMI 2021-01-15 21:03:00 23.64 kg/m2 [facility] [place] [facility] Systolic blood 2021-01-15 19:31:00 109 mm[Hg] Univer sity of pressure [place] [facility] Diastolic blood 2021-01-15 19:31:00 71 mm[Hg] Unive rsity of pressure [place] [facility] Heart rate 2021-01-15 19:31:00 88 /min [facility] [place] [facility] Respiratory rate 2021-01-15 19:31:00 19 /min Univ ersity of [place] [facility] Body height 2021-01-15 19:31:00 162.6 cm [facility] [place] [facility] Body weight 2021-01-15 19:31:00 62.143 kg [facility] [place] [facility] BMI 2021-01-15 19:31:00 23.52 kg/m2 [facility] [place] [facility] Oxygen saturation in 2021-01-15 19:31:00 93 /min University of Arterial blood by [place] [employer] [facility] Pulse oximetry Branch Systolic blood 2021-01-01 16:37:00 118 mm[Hg] Univer sity of pressure [place] [facility] Diastolic blood 2021-01-01 16:37:00 77 mm[Hg] Unive rsity of pressure [place] [facility] Heart rate 2021-01-01 16:37:00 102 /min [facility] [place] [facility] Body weight 2021-01-01 16:37:00 61.689 kg [facility] [place] [facility] BMI 2021-01-01 16:37:00 23.34 kg/m2 [facility] [place] [facility] Oxygen saturation in 2021-01-01 16:37:00 100 /min University of Arterial blood by [place] [employer] [facility] Pulse oximetry Branch Systolic blood 2020-12-01 15:53:00 123 mm[Hg] Univer sity of pressure [place] [facility] Diastolic blood 2020-12-01 15:53:00 69 mm[Hg] Unive rsity of pressure [place] [facility] Heart rate 2020-12-01 15:53:00 90 /min [facility] [place] [facility] Body temperature 2020-12-01 15:53:00 36.22 [place] Univ ersity of [place] [facility] Respiratory rate 2020-12-01 15:53:00 16 /min Univ ersity of [place] [facility] Oxygen saturation in 2020-12-01 15:53:00 97 /min University of Arterial blood by [facility] Pulse oximetry Branch Body height 2020-11-30 14:35:00 162.6 cm [facility] [place] [facility] Body weight 2020-11-30 14:35:00 64.411 kg [facility] [place] [facility] BMI 2020-11-30 14:35:00 24.37 kg/m2 [facility] [place] [facility] Systolic blood 2020-11-13 20:00:00 115 mm[Hg] Univer sity of pressure [place] [facility] Diastolic blood 2020-11-13 20:00:00 77 mm[Hg] Unive rsity of pressure [place] [facility] Heart rate 2020-11-13 20:00:00 82 /min [facility] [place] [facility] Respiratory rate 2020-11-13 20:00:00 16 /min Univ ersity of [facility] Body height 2020-11-13 20:00:00 162.6 cm [facility] [place] [facility] Body weight 2020-11-13 20:00:00 64.728 kg [facility] [place] [facility] BMI 2020-11-13 20:00:00 24.49 kg/m2 [facility] [place] [facility] Oxygen saturation in 2020-11-13 20:00:00 94 /min University of Arterial blood by [facility] Pulse oximetry Branch Systolic blood 2020-10-07 19:37:00 118 mm[Hg] Univer sity of pressure [place] [facility] Diastolic blood 2020-10-07 19:37:00 80 mm[Hg] Unive rsity of pressure [place] [facility] Heart rate 2020-10-07 19:37:00 95 /min [facility] [place] [facility] Body weight 2020-10-07 19:37:00 59.875 kg [facility] [place] [facility] BMI 2020-10-07 19:37:00 22.65 kg/m2 [facility] [place] [facility] Oxygen saturation in 2020-10-07 19:37:00 97 /min University of Arterial blood by [facility] Pulse oximetry Branch Systolic blood 2020-10-01 20:20:00 120 mm[Hg] Univer sity of pressure [place] [facility] Diastolic blood 2020-10-01 20:20:00 80 [...] 2020-10-01 20:20:00 60 /min [facility] [place] [facility] Systolic blood 2020-10-01 20:20:00 120 [...] 2020-10-01 20:20:00 60 /min [facility] [place] [facility] Systolic blood 2020-09-07 20:47:00 104 mm[Hg] Univer sity of pressure [place] [facility] Diastolic blood 2020-09-07 20:47:00 62 mm[Hg] Unive rsity of pressure [place] [facility] Heart rate 2020-09-07 20:47:00 88 /min [facility] [place] [facility] Body temperature 2020-09-07 20:47:00 36.17 [place] Univ ersity of [facility] Respiratory rate 2020-09-07 20:47:00 18 /min Univ ersity of [facility] Oxygen saturation in 2020-09-07 20:47:00 99 /min University of Arterial blood by [facility] Pulse oximetry Branch Body height 2020-09-05 07:40:00 162.6 cm [facility] [place] [facility] Body weight 2020-09-05 07:40:00 60.737 kg [facility] [place] [facility] BMI 2020-09-05 07:40:00 22.97 kg/m2 [facility] [place] [facility] Systolic blood 2020-09-04 21:15:00 130 mm[Hg] Univer sity of pressure [facility] Diastolic blood 2020-09-04 21:15:00 83 mm[Hg] Unive rsity of pressure [facility] Heart rate 2020-09-04 21:15:00 85 /min [facility] [place] [facility] Respiratory rate 2020-09-04 21:15:00 19 /min Univ ersity of [place] [facility] Body height 2020-09-04 21:15:00 162.6 cm [facility] [place] [facility] Body weight 2020-09-04 21:15:00 65.318 kg [facility] [place] [facility] BMI 2020-09-04 21:15:00 24.72 kg/m2 [facility] [place] [facility] Systolic blood 2020-05-08 19:29:00 128 mm[Hg] Univer sity of pressure [facility] Diastolic blood 2020-05-08 19:29:00 80 mm[Hg] Unive rsity of pressure [place] [facility] Heart rate 2020-05-08 19:29:00 82 /min [facility] [place] [facility] Body temperature 2020-05-08 19:29:00 36.39 [place] Univ ersity of [facility] Body height 2020-05-08 19:29:00 162.6 cm [facility] [place] [facility] Body weight 2020-05-08 19:29:00 68.04 kg [facility] [place] [facility] BMI 2020-05-08 19:29:00 25.75 kg/m2 [facility] [place] [facility] Systolic blood 2020-04-03 19:48:00 104 mm[Hg] Univer sity of pressure [place] [facility] Diastolic blood 2020-04-03 19:48:00 66 mm[Hg] Unive rsity of pressure [place] [facility] Heart rate 2020-04-03 19:48:00 81 /min [facility] [place] [facility] Body temperature 2020-04-03 19:48:00 36.72 [place] Univ ersity [facility] [place] [facility] Respiratory rate 2020-04-03 19:48:00 18 /min Univ ersity [facility] [place] [facility] Body height 2020-04-03 19:48:00 162.6 cm [facility] [place] [facility] Body weight 2020-04-03 19:48:00 69.4 kg [facility] [place] [facility] BMI 2020-04-03 19:48:00 26.26 kg/m2 [facility] [place] [facility] Systolic blood 2020-01-10 21:55:00 126 mm[Hg] Univer sity of pressure [place] [facility] Diastolic blood 2020-01-10 21:55:00 84 mm[Hg] Unive rsity of pressure [place] [facility] Heart rate 2020-01-10 21:55:00 93 /min [facility] [place] [facility] Respiratory rate 2020-01-10 21:55:00 16 /min Univ ersity [facility] [place] [facility] Body height 2020-01-10 21:55:00 162.6 cm [facility] [place] [facility] Body weight 2020-01-10 21:55:00 72.303 kg [facility] [place] [facility] BMI 2020-01-10 21:55:00 27.36 kg/m2 [facility] [place] [facility] Systolic blood 2019-10-11 20:16:00 124 mm[Hg] Univer sity of pressure [place] [facility] Diastolic blood 2019-10-11 20:16:00 77 mm[Hg] Unive rsity of pressure [facility] Heart rate 2019-10-11 20:16:00 92 /min [facility] Body temperature 2019-10-11 20:16:00 36.89 Lucero [facility] Respiratory rate 2019-10-11 20:16:00 18 /min [facility] Body height 2019-10-11 20:16:00 162.6 cm [facility] Body weight 2019-10-11 20:16:00 80.74 kg [facility] BMI 2019-10-11 20:16:00 30.55 kg/m2 [facility] Heart rate 2019-08-16 16:31:00 90 /min [facility] Respiratory rate 2019-08-16 16:31:00 18 /min [facility] Oxygen saturation in 2019-08-16 16:31:00 97 /min [facility] Arterial blood by [facility] Pulse oximetry Branch Systolic blood 2019-08-16 16:17:00 110 mm[Hg] [facility]iver [facility]ity [facility] pressure [facility] Diastolic blood 2019-08-16 16:17:00 58 mm[Hg] Unive rsity of pressure [facility] Body temperature 2019-08-16 16:17:00 36 Lucero [facility] Body weight 2019-08-16 08:21:00 79.833 kg [facility] BMI 2019-08-16 08:21:00 30.21 kg/m2 [facility] Body height 2019-08-15 13:32:00 162.6 cm [facility] Systolic blood 2019-08-05 16:11:00 145 mm[Hg] [facility] Diastolic blood 2019-08-05 16:11:00 88 mm[Hg] Unive rsity of pressure [facility] Heart rate 2019-08-05 16:11:00 92 /min [facility] Respiratory rate 2019-08-05 16:11:00 19 /min [facility] Body height 2019-08-05 16:11:00 162.6 cm [facility] Body weight 2019-08-05 16:11:00 80.513 kg [facility] BMI 2019-08-05 16:11:00 30.47 kg/m2 [facility] Oxygen saturation in 2019-08-05 16:11:00 99 /min [facility] Arterial blood by [facility] Pulse oximetry Branch Systolic blood 2019-02-04 15:08:00 117 mm[Hg] [facility]ity [facility] Diastolic blood 2019-02-04 15:08:00 83 mm[Hg] Unive rsity of pressure [facility] Heart rate 2019-02-04 15:08:00 80 /min [facility] Respiratory rate 2019-02-04 15:08:00 20 /min [facility] Body height 2019-02-04 15:08:00 162.6 cm [facility] Oxygen saturation in 2019-02-04 15:08:00 99 /min [facility] Arterial blood by [facility] Pulse oximetry Branch Systolic blood 2019-01-04 19:51:00 124 mm[Hg] Univer sity of pressure [facility] Diastolic blood 2019-01-04 19:51:00 83 mm[Hg] [facility] Heart rate 2019-01-04 19:51:00 79 /min [facility] Respiratory rate 2019-01-04 19:51:00 16 /min [facility] Body height 2019-01-04 19:51:00 162.6 cm [facility] Body weight 2019-01-04 19:51:00 76.204 kg [facility] BMI 2019-01-04 19:51:00 28.84 kg/m2 [facility] Procedures Procedure Date / Time Performing Clinician Source Performed EXTERNAL PROVIDER RECORDS 2021-05-13 06:01:00 Doctor Unassmarcela, [facility] Name [facility] POCT GLUCOSE (AUTOMATED) 2021-02-12 21:28:00 Fabby Nieves [facility] BASIC METABOLIC PANEL (NA, 2021-02-12 20:36:00 Fabby Nieves [facility] K, CL, CO2, GLUCOSE, BUN, Medica l Branch CREATININE, CA) CBC WITH DIFF 2021-02-12 20:36:00 Fabby Nieves [facility] URINALYSIS 2021-02-12 20:36:00 Fabby Nieves [facility] POCT GLUCOSE (AUTOMATED) 2021-02-12 19:33:00 Doctor Unaalina, [facility] Name [facility] CONSENT/REFUSAL FOR 2021-02-12 19:10:35 Doctor Unassigned, [facility] DIAGNOSIS AND TREATMENT [facility] POCT GLUCOSE (AUTOMATED) 2021-01-17 17:24:00 Celso Duran [facility] POCT GLUCOSE (AUTOMATED) 2021-01-17 12:38:00 Celso Duran [facility] BASIC METABOLIC PANEL (NA, 2021-01-17 09:06:00 Priyanka Haney [facility] K, CL, CO2, GLUCOSE, BUN, Medica l Branch CREATININE, CA) CBC WITH DIFF 2021-01-17 09:06:00 Priyanka Haney [facility] POCT GLUCOSE (AUTOMATED) 2021-01-16 21:11:00 Celso Duran [facility] POCT GLUCOSE (AUTOMATED) 2021-01-16 16:41:00 Celso Duran [facility] POCT GLUCOSE (AUTOMATED) 2021-01-16 12:48:00 Celso Duran [facility] CBC WITH DIFF 2021-01-16 08:25:00 Priyanka Haney [facility] POCT GLUCOSE (AUTOMATED) 2021-01-16 08:24:00 Celso Duran [facility] MAGNESIUM 2021-01-16 08:17:00 Priyanka Haney [facility] BASIC METABOLIC PANEL (NA, 2021-01-16 08:17:00 Priyanka Haney [facility] K, CL, CO2, GLUCOSE, BUN, Medica l Branch CREATININE, CA) LIPID PANEL ([id number])(TOTAL 2021-01-16 08:17:00 Priyanka Haney [facility] CHOLESTEROL, [facility] Branch TRIGLYCERIDES, HDL) LOW-DENSITY LIPOPROTEIN, 2021-01-16 08:17:00 Priyanka Haney [facility] POCT GLUCOSE (AUTOMATED) 2021-01-16 03:51:00 Celso Duran [facility] URINE CULTURE 2021-01-16 01:56:00 Priyanka Haney [facility] POCT GLUCOSE (AUTOMATED) 2021-01-16 01:06:00 Celso Duran [facility] URINALYSIS 2021-01-15 23:47:00 Priyanka Haney [facility] BLOOD CULTURE SCREEN 2021-01-15 23:39:00 Priyanka Haney [facility] PHOSPHORUS 2021-01-15 23:30:00 Priyanka Haney [facility] TROPONIN I 2021-01-15 23:30:00 Priyanka Haney [facility] THYROID STIMULATING 2021-01-15 23:30:00 Priyanka Haney [facility] HORMONE [facility] HEPATIC FUNCTION PANEL 2021-01-15 23:30:00 Priyanka Haney [facility] ([id number]) (ALB,T.PRO,BILI Medical Branch T,BU/BC,ALT,AST,ALK PHOS) GLYCOSYLATED HEMOGLOBIN 2021-01-15 23:30:00 Priyanka Haney [facility] (A1C) [facility] BLOOD CULTURE SCREEN 2021-01-15 23:27:00 Priyanka Haney [facility] POCT GLUCOSE (AUTOMATED) 2021-01-15 22:30:00 Celso Duran [facility] COVID-19 (ID NOW RAPID 2021-01-15 20:44:00 Priyanka Haney [facility] TESTING) Medical Branch LAB ONLY COVID 2021-01-15 20:44:00 Priyanka Haney [facility] INTERPRETATION [facility] NOTICE OF PRIVACY 2021-01-15 20:25:44 Doctor Unassigned, [facility] PRACTICES [facility] CONSENT/REFUSAL FOR 2021-01-15 20:25:23 Doctor Unassigned, [facility] DIAGNOSIS AND TREATMENT [facility] ASSIGNMENT OF BENEFITS 2021-01-15 20:24:58 Doctor Unassigned, [facility] POCT HEMOGLOBIN A1C TEST 2021-01-01 16:39:00 Anatoly Villegas [facility] POCT GLUCOSE (AUTOMATED) 2020-12-01 17:39:00 Lesia Jc [facility] MAGNESIUM 2020-12-01 10:29:00 Anatoly Wahl o f [facility] BASIC METABOLIC PANEL (NA, 2020-12-01 10:29:00 Anatoly Wahl [facility] K, CL, CO2, GLUCOSE, BUN, Medica l Branch CREATININE, CA) CBC WITH DIFF 2020-12-01 10:29:00 Anatoly Wahl [place] [facility] POCT GLUCOSE (AUTOMATED) 2020-12-01 02:29:00 [facility] THRMPLAS 2020-12-01 00:50:00 Miguel Luo [facility] POCT GLUCOSE (AUTOMATED) 2020-11-30 23:07:00 [facility] PO[facility] ACT LOW RANGE 2020-11-30 22:17:00 [facility] POCT ACT LOW RANGE 2020-11-30 21:55:00 [facility] BASIC METABOLIC PANEL (NA, 2020-11-30 14:26:00 Lily Jenkins [facility] K, CL, CO2, GLUCOSE, BUN, Medica l Branch CREATININE, CA) COVID-19 (ID NOW RAPID 2020-11-30 13:21:00 Brown Woodward [facility] TESTING) Medical Branch LAB ONLY COVID 2020-11-30 13:21:00 Brown Woodward [facility] INTERPRETATION [facility] POCT GLUCOSE(AGE >30DAYS) 2020-10-07 19:39:00 [facility] PO[facility] GLU[facility]SE (AUTOMATED) 2020-09-07 22:28:00 Jay [facility] POCT GLUCOSE (AUTOMATED) 2020-09-07 20:47:00 Jay [facility] POCT GLUCOSE (AUTOMATED) 2020-09-07 20:12:00 Jay [facility] POCT GLUCOSE (AUTOMATED) 2020-09-07 16:43:00 Jay [facility] CAROTID DUPLEX BILATERAL - 2020-09-07 15:09:10 Lily Jenkins [facility] BY VASCULAR LAB [facility] Branch POCT GLUCOSE (AUTOMATED) 2020-09-07 12:50:00 Jay [facility] COMP. METABOLIC PANEL 2020-09-07 09:28:00 Elyse Aparicio [facility] ([id number]) [facility] CBC WITH DIFF 2020-09-07 09:28:00 Jay England [facility] POCT GLUCOSE (AUTOMATED) 2020-09-07 01:42:00 Jay [facility] CORTISOL STIMULATION 60 2020-09-06 23:08:00 Jay England [facility] CORTISOL STIMULATION 30 2020-09-06 22:36:00 Jay England [facility] CORTISOL STIMULATION 0 MIN 2020-09-06 22:05:00 Jay England [facility] POCT GLUCOSE (AUTOMATED) 2020-09-06 21:04:00 Jay England [facility] POCT GLUCOSE (AUTOMATED) 2020-09-06 19:57:00 Jay England [facility] POCT GLUCOSE (AUTOMATED) 2020-09-06 16:40:00 Jay England [facility] POCT GLUCOSE (AUTOMATED) 2020-09-06 12:45:00 Anastasia [facility]iraldo [facility] PHOSPHORUS 2020-09-06 11:16:00 Jay England [facility] MAGNESIUM 2020-09-06 11:16:00 Elyse Aparicio [facility] CORTISOL AM 2020-09-06 11:16:00 Elyse Aparicio [facility] COMP. METABOLIC PANEL 2020-09-06 11:16:00 Elyse Aparicio [facility] ([id number]) [facility] CBC WITH DIFF 2020-09-06 11:16:00 Elyse Aparicio [facility] N-TERMINAL PRO-BNP 2020-09-06 11:16:00 Elyse Aparicio [facility] POCT GLUCOSE (AUTOMATED) 2020-09-06 01:07:00 [facility]asia [facility]iral[facility] TROPONIN I 2020-09-06 00:13:00 Elyse Aparicio [facility] SEDIMENTATION RATE 2020-09-06 00:13:00 Jay England [facility] POCT GLUCOSE (AUTOMATED) 2020-09-05 21:44:00 [facility] ([facility]OMATED) 2020-09-05 16:54:00 [facility] POCT GLUCOSE (AUTOMATED) 2020-09-05 13:47:00 Anastasia Giraldo [facility] ABDOMEN PELVIS WO 2020-09-05 11:16:59 Elyse Aparicio [facility] CONTRAST [facility] CREATINE KINASE 2020-09-05 10:01:00 Alessandra [facility] MAGNESIUM 2020-09-05 10:01:00 Alessandra [facility] VITAMIN B12, LEVEL 2020-09-05 10:01:00 Alessandra jonas [facility] TROPONIN I 2020-09-05 10:01:00 Alessandra [facility] COMP. METABOLIC PANEL 2020-09-05 10:01:00 Elyse Aparicio [facility] ([id number]) [facility] LIPID PANEL ([id number])(TOTAL 2020-09-05 10:01:00 Jay England [facility] TRIGLY[facility], HDL) CBC WITH DIFF 2020-09-05 10:01:00 Alessandra jonas [facility] GLYCOSYLATED HEMOGLOBIN 2020-09-05 10:01:00 Elyse Aparicio [facility] (A1C) [facility] PROTHROMBIN TIME / INR 2020-09-05 10:01:00 Alessandra jonas [facility] N-TERMINAL PRO-BNP 2020-09-05 10:01:00 Alessandra jonas [facility] VITAMIN D, 25-OH 2020-09-05 10:01:00 Alessandra [facility] PROCALCITONIN 2020-09-05 10:01:00 Elyse Aparicio [facility] URINE CULTURE 2020-09-05 05:12:00 Anastasia Giraldo [facility] COVID-19 (ID NOW RAPID 2020-09-05 05:12:00 Anastasia Giraldo [facility] TESTING) [facility] POCT GLUCOSE (AUTOMATED) 2020-09-05 04:24:00 [facility]astasia [facility]iral[facility] ACUTE CARE VENOUS BLOOD 2020-09-05 02:29:00 Anastasia Giraldo [facility] PHOSPHORUS 2020-09-05 02:22:00 Alessandra [facility] LIPASE 2020-09-05 02:22:00 Anastasia Giraldo [facility] MAGNESIUM 2020-09-05 02:22:00 Alessandra [facility] TROPONIN I 2020-09-05 02:22:00 Anastasia Giraldo [facility] THYROID STIMULATING 2020-09-05 02:22:00 Elyse Aparicio [facility] HORMONE [facility] COMP. METABOLIC PANEL 2020-09-05 02:22:00 Anastasia Giraldo [facility] ([id number]) [facility] CBC WITH DIFF 2020-09-05 02:22:00 Anastasia Giraldo [facility] URINALYSIS 2020-09-05 02:22:00 Anastasia Giraldo [facility] N-TERMINAL PRO-BNP 2020-09-05 02:22:00 Anastasia Giraldo [facility] POCT GLUCOSE (AUTOMATED) 2020-09-05 01:56:00 Doctor Kehindeigned, [facility] Name [facility] NOTICE OF PRIVACY 2020-09-05 01:52:18 Doctor Juan Manuel, [facility] CONSENT/REFUSAL FOR 2020-09-05 01:51:48 Doctor Juan Manuel, [facility] DIAGNOSIS AND TREATMENT [facility] CONSENT/REFUSAL FOR 2020-09-04 22:21:52 Doctor Juan Manuel, [facility] DIAGNOSIS AND TREATMENT [facility] POCT HEMOGLOBIN A1C TEST 2020-09-04 00:00:00 Anatoly Villegas [facility] EXTERNAL PROVIDER RECORDS 2020-08-03 06:01:00 Doctor Zambrano, [facility] XR LUMBAR SPINE 4 VW 2020-05-08 21:19:59 Rashad Costa [facility] XR HIPS 2 VW LEFT 2020-05-08 21:19:59 Rashad Costa [facility] ASSIGNMENT OF BENEFITS 2020-05-08 20:39:58 Doctor Juan Manuel, [facility] URINE CULTURE 2020-04-03 20:18:00 Adum, Sisi Montero [place] [facility] GC & CHLAMYDIA AMPLIFIED 2020-04-03 20:18:00 Adum, Sisi Montero [facility] GALV ONLY - VAGINAL 2020-04-03 20:18:00 Adum, Sisi Montero [facility] PATHOGENS BY NUCLEIC ACID Medica [facility] TESTING TRICHOMONAS AMPLIFIED 2020-04-03 20:18:00 Adum, Sisi Montero [facility] POCT URINALYSIS W/O 2020-04-03 00:00:00 Adum, Sisi Montero [facility] SPECIFIC GRAVITY [facility] POCT HEMOGLOBIN A1C TEST 2020-01-10 00:00:00 Anatoly Villegas [facility] HOSPITAL ADMISSION MISC - 2019-12-10 05:01:00 Doctor Zambrano, [facility] MEDICARE PATIENTS RIGHTS [facility] IMPORTANT MESSAGE BI SCREENING MAMMOGRAM 2019-11-01 17:35:15 [facility] BILATERAL Medical Branch CONSENT/REFUSAL FOR 2019-11-01 16:33:32 Doctor [facility] DIAGNOSIS AND TREATMENT [facility] ASSIGNMENT OF BENEFITS 2019-11-01 16:33:15 Doctor Zambrano, Anuj [facility] [id number] CONSENT 2019-10-11 05:01:00 Doctor Zambrano [facility] AGREEMENTS AUTHORIZATIONS 2019-08-30 05:01:00 Doctor Zambrano, [facility] AND IRREVOCABLE [facility] ASSIGNMENTS (FORM 2001) POCT GLUCOSE (AUTOMATED) 2019-08-16 13:02:00 [facility]nesis Romano [facility] POCT GLUCOSE (AUTOMATED) 2019-08-16 09:53:00 Génesis Romano Uni versity [facility] MAGNESIUM 2019-08-16 09:52:00 Izaiah Miles [facility] BASIC METABOLIC PANEL (NA, 2019-08-16 09:52:00 Izaiah Miles [facility] K, CL, CO2, GLUCOSE, BUN, Medica l Branch CREATININE, CA) CBC WITH DIFFERENTIAL 2019-08-16 09:52:00 Izaiah Miles [facility] POCT GLUCOSE (AUTOMATED) 2019-08-16 07:10:00 Génesis Romano [facility] POCT GLUCOSE (AUTOMATED) 2019-08-16 05:02:00 Génesis Romano [facility] CT HEAD WO CONTRAST 2019-08-16 00:49:18 Shanta Spring [facility] POCT GLUCOSE (AUTOMATED) 2019-08-15 22:14:00 Génesis Romano [facility] POCT GLUCOSE (AUTOMATED) 2019-08-15 20:40:00 Génesis Romano [facility] ACTIVATED PARTIAL THRMPLAS 2019-08-15 20:35:00 Izaiah Miles [facility] POCT GLUCOSE (AUTOMATED) 2019-08-15 16:53:00 Génesis Romano [facility] POCT ACT LOW RANGE 2019-08-15 15:35:00 Génesis Romano [facility] POCT ACT LOW RANGE 2019-08-15 15:14:00 Génesis Romano [facility] POCT ACT LOW RANGE 2019-08-15 14:37:00 Génesis Romano [facility] POCT ACT LOW RANGE 2019-08-15 14:20:00 Génesis Romano [facility] MAGNESIUM 2019-08-15 09:53:00 Izaiah Miles [facility] BASIC METABOLIC PANEL (NA, 2019-08-15 09:53:00 Izaiah Miles [facility] K, CL, CO2, GLUCOSE, BUN, Medica l Branch CREATININE, CA) CBC WITH DIFFERENTIAL 2019-08-15 09:53:00 [facility] PART[facility] THRMPLAS 2019-08-15 09:53:00 Shanta Spring [facility] POCT GLUCOSE (AUTOMATED) 2019-08-15 09:47:00 Bandar Romanomad [facility] POCT GLUCOSE (AUTOMATED) 2019-08-15 06:33:00 Raja, Capps [facility] POCT GLUCOSE (AUTOMATED) 2019-08-15 03:08:00 Adalid Romanohammad [facility] BASIC METABOLIC PANEL (NA, 2019-08-15 01:48:00 [facility], CO2, GLUCOSE, BUN, Medica l Branch CREATININE, CA) ACTIVATED PARTIAL THRMPLAS 2019-08-15 01:48:00 Shanta Spring [facility] POCT GLUCOSE (AUTOMATED) 2019-08-15 01:46:00 Adalid Romanohammad [facility] POCT GLUCOSE (AUTOMATED) 2019-08-14 22:29:00 Adalid Romanohammad [facility] POCT GLUCOSE (AUTOMATED) 2019-08-14 20:42:00 Adalid Romanohammad [facility] ACTIVATED PARTIAL THRMPLAS 2019-08-14 19:14:00 Shanta Spring [facility] POCT GLUCOSE (AUTOMATED) 2019-08-14 16:43:00 Adalid Romanohammad [facility] ECHO ROUTINE W/DOPPLER 2019-08-14 14:10:31 Izaiah Miles [facility] POCT GLUCOSE (AUTOMATED) 2019-08-14 13:50:00 Génesis Romano [facility] GALV ONLY - INFLUENZA A B 2019-08-14 13:42:00 Jean Carlos [facility] RSV PCR [facility] EKG-12 LEAD 2019-08-14 13:11:24 Génesis Romano [facility] ACTIVATED PARTIAL THRMPLAS 2019-08-14 10:04:00 Shanta Spring [facility] MAGNESIUM 2019-08-14 10:03:00 Izaiah Miles [facility] BASIC METABOLIC PANEL (NA, 2019-08-14 10:03:00 Izaiah Miles [facility] K, CL, CO2, GLUCOSE, BUN, Medica l Branch CREATININE, CA) CBC WITH DIFFERENTIAL 2019-08-14 10:03:00 Izaiah Miles [facility] POCT GLUCOSE (AUTOMATED) 2019-08-14 01:18:00 Génesis Romano [facility] POCT GLUCOSE (AUTOMATED) 2019-08-13 23:08:00 Génesis Romano [facility] ACTIVATED PARTIAL THRMPLAS 2019-08-13 22:43:00 Shanta Spring [facility] POCT GLUCOSE (AUTOMATED) 2019-08-13 19:28:00 Génesis Romano [facility] CORONARY ANGIOGRAPHY 2019-08-13 16:40:26 Doctor Unassigned, [facility] TROPONIN I 2019-08-13 13:14:00 Saw [facility] POCT GLUCOSE (AUTOMATED) 2019-08-13 13:12:00 Génesis Romano [facility] XR CHEST 1 VW 2019-08-13 08:08:00 Saw [facility] MAGNESIUM 2019-08-13 05:24:00 Wen Graf [facility] TROPONIN I 2019-08-13 05:24:00 Saw [facility] BASIC METABOLIC PANEL (NA, 2019-08-13 05:24:00 Shanta Spring [facility] K, CL, CO2, GLUCOSE, BUN, Medica l Branch CREATININE, CA) CBC WITH DIFFERENTIAL 2019-08-13 05:24:00 Izaiah Miles [facility] GLYCOSYLATED HEMOGLOBIN 2019-08-13 05:24:00 [facility] Branch PROTHROMBIN TIME / INR 2019-08-13 05:24:00 Shanta Spring [facility] ACTIVATED PARTIAL THRMPLAS 2019-08-13 05:24:00 Shanta Spring [facility] SAGE Medical Branch N-TERMINAL PRO-BNP 2019-08-13 05:24:00 Shanta Spring [facility] EKG-12 LEAD 2019-08-13 04:39:22 [facility] [place] [facility] EXTERNAL PROVIDER - ADC 2019-08-05 05:01:00 Doctor Juan Manuel, [facility] CARDIOLOGY [facility] NOTICE OF BILLING 2019-02-04 14:40:05 Doctor Juan Manuel, [facility] PRACTICES FOR MEDICARE [facility] PATIENTS NO SHOW OR MISSED 2019-01-04 19:28:18 Doctor Juan Manuel, [facility] APPOINTMENT POLICY [facility] ACKNOWLEDGEMENT REFERRAL- REQUEST/RESPONSE 2018-12-20 05:01:00 Doctor Juan Manuel , [facility] PATIENT CORRESPONDENCE 2018-12-06 05:01:00 Doctor Juan Manuel, [facility] (LETTERS, USPS [facility] DOCUMENTATION) Plan of Care Planned Activity Planned Date Details Comments Source Future Scheduled 2022 Screening for [facility] Test 00:00:00 malignant neoplasm of Medica l Branch colon (procedure) [code = 875199282] Future Scheduled 2022 Screening for [facility] Test 00:00:00 malignant neoplasm of Medica l Branch colon (procedure) [code = 987714180] Future Scheduled 2021-09-07 Creatinine [facility] Test 00:00:00 measurement Medical Branch (procedure) [code = 56072187] Future Scheduled 2021-09-07 Creatinine [facility] Test 00:00:00 measurement Medical Branch (procedure) [code = [id number]] Future Scheduled 2021-09-05 Calculated low [facility] Test 00:00:00 density lipoprotein Medical Branch cholesterol level (procedure) [code = [id number]] Future Scheduled 2021-09-05 Calculated low [facility] Test 00:00:00 density lipoprotein Medical Branch cholesterol level (procedure) [code = 681767586] Future Scheduled 2021-05-08 Depression screening Uni [facility] Test 00:00:00 (procedure) [code = Medical Branch [id number]] Future Scheduled 2021-05-08 Depression screening [facility] 00:[facility]:00 (procedure) [code = Medical Branch 868300825] Future Scheduled 2021-03-07 Hemoglobin A1c [facility] Test 00:00:00 measurement Medical Branch (procedure) [code = 54035745] Future Scheduled 2021-03-07 Hemoglobin [facility]c [facility] Test 00:00:00 measurement [facility] (procedure) [code = [id number]] Future Scheduled 2021-01-27 [facility] (Season Ended) [code Medical Branch = INFLUENZA VACCINE (Season Ended)] Future Scheduled 2021-01-27 INFLUENZA VACCINE [facility] Test 00:00:00 (Season Ended) [code Medical Branch = INFLUENZA VACCINE (Season Ended)] Future Scheduled 2020-10-31 Screening for [facility] Test 00:00:00 malignant neoplasm of Medica l Branch breast (procedure) [code = 625938148] Future Scheduled 2020-10-31 Screening for [facility] Test 00:00:00 malignant neoplasm of Medica l Branch breast (procedure) [code = 524789839] Future Scheduled 2020-09-25 Screening for [facility] Test 00:00:00 malignant neoplasm of Medica l Branch cervix (procedure) [code = 039068235] Future Scheduled 2020-09-25 Screening for [facility] Test 00:00:00 malignant neoplasm of Medica l Branch cervix (procedure) [code = 806673323] Future Scheduled 2020-05-10 Diabetic foot [facility] Test 00:00:00 examination Medical Branch (regime/therapy) [code = 108611464] Future Scheduled 2020-05-10 Diabetic foot [facility] Test 00:00:00 examination Medical Branch (regime/therapy) [code = 512190179] Future Scheduled 2019-09-01 Microalbumin [facility] Test 00:00:00 measurement, urine, Medical Branch quantitative (procedure) [code = 399433686] Future Scheduled 2019-09-01 Microalbumin [facility] Test 00:00:00 measurement, urine, Medical Branch quantitative (procedure) [code = 101605611] Future Scheduled 1991 DTaP,Tdap,and Td [facility] Test 00:00:00 Vaccines (1 - Tdap) Medical Branch [code = DTaP,Tdap,and Td Vaccines (1 - Tdap)] Future Scheduled 1991 DTaP,Tdap,and Td [facility] [place] Test 00:00:00 Vaccines (1 - Tdap) Medical Branch [code = DTaP,Tdap,and Td Vaccines (1 - Tdap)] Future Scheduled 1990 Hepatitis C screening [facility] [place] [facility] 00:00:00 (procedure) [code = Medical Branch 730828270] Future Scheduled 1990 Hepatitis C screening [facility] [place] [facility] 00:00:00 (procedure) [code = Medical Branch 228804742] Future Scheduled 1988 SARS-CoV-2 (COVID-19) [facility] [place] [facility] 00:00:00 Vaccine (1) [code = Medical Branch SARS-CoV-2 (COVID-19) Vaccine (1)] Future Scheduled 1988 SARS-CoV-2 (COVID-19) [facility] [place] [facility] 00:00:00 Vaccine (1) [code = Medical Branch SARS-CoV-2 (COVID-19) Vaccine (1)] Future Scheduled 1982 Examination of retina [facility] [place] [facility] 00:00:00 (procedure) [code = Medical Branch 934194368] Future Scheduled 1982 Examination of retina [facility] [place] [facility] 00:00:00 (procedure) [code = Medical Branch 132751775] Future Scheduled 1978 PNEUMOCOCCAL 0-64 [facility] [place] Test 00:00:00 YEARS COMBINED SERIES Medica l Branch (1 of 1 - PPSV23) [code = PNEUMOCOCCAL 0-64 YEARS COMBINED SERIES (1 of 1 - PPSV23)] Future Scheduled 1978 PNEUMOCOCCAL 0-64 [facility] [place] Test 00:00:00 YEARS COMBINED SERIES Medica l Branch (1 of 1 - PPSV23) [code = PNEUMOCOCCAL 0-64 YEARS COMBINED SERIES (1 of 1 - PPSV23)] Encounters Start End Encounter Admission Attending Care Care Encounter Source Date/Time Date/Time Type Type Clinicians Facility Department ID 2021-03-29 Emergency [facility] [id number] Univers 23:28:09 ity of [facility] 2021-03-28 Emergency X [facility] [id number] Univers 11:58:59 ity of [facility] 2021-03-28 Emergency [facility] [id number] Univers 11:58:17 ity of [facility] 2021-03-26 Emergency [facility] [id number] Univers 12:39:58 ity of [facility] 2021-07-09 2021-07-09 Outpatient R MARK [facility] [id number] 5Q-20 Univers 13:30:00 13:30:00 ANATOLY [id number] ity [facility] 2021-05-13 2021-05-13 Orders Doctor VAISHALI 1.2.840.114 [id number] Univers 00:00:00 00:00:00 Only Unassigned, AIDA 350.1.13.10 ity of [place] [facility] 4.2.7.2.686 [place]aff[place] as [phone] [facility] [address] 2021-02-12 2021-02-12 Emergency [facility] 1.2.840.114 [id number] Univers 14:34:00 17:16:00 Fabby Hawkins 350.1.13.10 ity of [place].2.7.2.686 [place] [facility] [phone] [facility] [address] 2021-02-12 2021-02-12 Office [facility] 1.2.840.114 [id number] Univers 13:04:40 15:13:23 Visit [facility] 350.1.13.10 it y of [place] 4.2.7.2.686 [place]affy as Charly?Blea [phone] [address] Medical Office Building 2021-02-12 2021-02-12 Outpatient [facility] [id number] -[id number] Univers 13:00:00 13:00:00 ALDA [id number] ity [facility] 2021-02-12 2021-02-12 Outpatient [facility] [id number] Univers 13:00:00 13:00:00 ALDA ity [facility] 2021-01-19 2021-01-19 Transition Matthew Daniel 1.2.840.114 [id number] Univers 00:00:00 00:00:00 of Veronika Mata 350.1.13.10 it y of [place] [phone] [facility] 403 Branch 2021-01-15 2021-01-17 [facility] 1.2.840.114 [id number] Univers 15:17:00 13:06:00 Encounter Celso Hawkins 350.1.13.10 it[place].2.[place] [phone] [facility] [address] 2021-01-15 2021-01-15 Office [facility] 1.2.840.114 [id number] Univers 14:09:25 15:11:21 Visit Lily Hawkins 350.1.13.10 it[place] [phone] Dc dical nal 059 [facility] 2021-01-15 2021-01-15 [facility] [id number] -[id number] Univers 14:40:00 14:40:00 LILY [id number] yue o [facility] 2021-01-15 2021-01-15 [facility] [id number] Univers 14:40:00 14:40:00 LILY turner o [facility] 2021-01-01 2021-01-01 [facility] 1.2.396.708 [id number] Univers 11:28:43 12:58:14 Visit Anatoly Hawkins 350.1.13.10 i ty of [place].7.2.[place] [phone] Dc dical nal 220 [facility] 2021-01-01 2021-01-01 [facility] [id number] 5Q-20 Univers 11:30:00 11:30:00 ANATOLY [id number] yue [facility] 2021-01-01 2021-01-01 Outpatient R MARK [facility] [id number] Univers 11:30:00 11:30:00 ANATOLY itmargarette [facility] 2020-12-18 2020-12-18 Refleticia [facility] 1.2.840.114 [id number] Univers 00:00:00 00:00:00 [facility] 350.1.13.10 [place] of [place] 4.2.7.2.686 Raffy as [facility] [phone] Dc dical [facility] 044 Branch Office Building One 2020-12-02 2020-12-02 Outpatient R GREGORY, [facility] [id number] -[id number] Univers 16:00:00 16:00:00 LILY [id number] ity o [facility] 2020-12-02 2020-12-02 Outpatient R GREGORY, [facility] [id number] Univers 16:00:00 16:00:00 LILY ity o [facility] 2020-11-30 2020-12-01 Lily Gr 1.2.840.114 [id number] Univers 17:33:00 15:15:00 Encounter Ra [place] 350.1.1 3.10 ity [facility] 4.2.7.2 .686 [facility] [phone] [place] [address] Branch 2020-12-01 2020-12-01 Outpatient R IGOR [facility] [id number] Q-20 Univers 14:00:00 14:00:00 WONDIFUL [id number] ity o [facility] 2020-12-01 2020-12-01 Outpatient R IGOR, [facility] [id number] Univers 14:00:00 14:00:00 WONDIFUL ity o [facility] 2020-11-30 2020-11-30 Outpatient [facility] [id number] -[id number] Univers 08:00:00 08:00:00 [id number] ity [facility] 2020-11-30 2020-11-30 Outpatient R [facility] [id number] Univers 08:00:00 08:00:00 ity [facility] 2020-11-30 2020-11-30 Hospital Diana Woodward 1.2.840.114 [id number] Univers 07:45:00 07:59:00 Encounter Brown Bennie Aida 350.1.13.10 ity of [address].686 [place]affy as [phone] [address] 2020-11-27 2020-11-27 Outpatient Sonya VILLEGAS [facility] [id number] 5Q-20 Univers 14:00:00 14:00:00 ANATOLY [id number] [facility] 2020-11-27 2020-11-27 Outpatient Sonya VILLEGAS [facility] [id number] Univers 14:00:00 14:00:00 ANATOLY [facility] 2020-11-25 2020-11-25 Telephone Diana Jenkins 1.2.093.014 [id number] Univers 00:00:00 00:00:00 Lily Parra 350.1.13.10 i ty of [place] [address].2.7.2.686 [place]affy as [phone] [address] 2020-11-25 2020-11-25 Telephone Gianfranco [facility] 1.2.004.518 [id number] Univers 00:00:00 00:00:00 Patient [place] 350.1.13.10 i ty of Does Not [place] 4.2.7.2.686 Raffy as Have A Professio [phone] Dc dical nal 843 [facility] 2020-11-16 2020-11-16 Telephone Diana Jenkins 1.2.718.160 [id number] Univers 00:00:00 00:00:00 Lily Parra 350.1.13.10 i ty of [facility] 4.2.7.2.686 [place]aff[place] as [phone] [address] 2020-11-13 2020-11-13 Office Gregory [facility] 1.2.840.114 [id number] Univers 14:46:41 15:21:27 Visit Lily Hawkins 350.1.13.10 it[place].2.[place] [phone] Dc dical nal 059 [facility] 2020-11-13 2020-11-13 Outpatient R GREGORY [facility] [id number] Univers 14:00:00 14:00:00 LILY ity o f [facility] 2020-11-13 2020-11-13 Outpatient R IGOR [facility] [id number] Q-20 Univers 13:00:00 13:00:00 WONDIFUL [id number] ity o f [facility] 2020-11-12 2020-11-12 Telephone Igor [facility] 1.2.840.114 [id number] Univers 00:00:00 00:00:00 [facility] 350.1.13.10 [place] of [place] 4.2.7.2.686 [place] as Professio [phone] Dc dical nal 044 [facility] One 2020-10-28 2020-10-28 Pre Visit Igor [facility] 1.2.840.114 [id number] Univers 00:00:00 00:00:00 Outreach [facility] 350.1.13.10 [place] of [place] 4.2.7.2.686 [place] as Professio [phone] Dc dical nal [address] Office [facility] 2020-10-07 2020-10-07 Office Vance [facility] 1.2.840.114 [id number] Univers 13:57:34 15:30:50 [facility] 350.1.13.10 i [place] [phone] Dc dical nal 220 [facility] 2020-10-07 2020-10-07 Outpatient R VANCE [facility] [id number] Univers 14:00:00 14:00:00 KATHI [id number] ity [facility] 2020-10-07 2020-10-07 Outpatient R VANCE [facility] [id number] Univers 14:00:00 14:00:00 KATHI ity [facility] 2020-10-06 2020-10-06 Outpatient R VANCE [facility] [id number] -[id number] Univers 14:30:00 14:30:00 OSIELONG [id number] ity [facility] 2020-10-06 2020-10-06 Outpatient R VANCE [facility] [id number] Univers 14:30:00 14:30:00 WENTONG ity of [facility] 2020-10-01 2020-10-01 Office Igor [facility] 1.2.840.114 [id number] Univers 15:08:27 16:09:31 Visit [facility] 350.1.13.10 [place] of [place] 4.2.7.2.686 [place] as Professio [phone] [address] Office [facility] One 2020-10-01 2020-10-01 Office [facility] 1.2.840.114 [id number] 15:08:27 16:09:31 Visit [facility] 350.1.13.10 [place] 4.2.7.2.686 Professio [phone] [address] One 2020-10-01 2020-10-01 Outpatient R IGOR [facility] [id number] Univers 15:00:00 15:00:00 WONDIFUL ity o f [facility] 2020-09-26 2020-09-26 Refleticia [facility] 1.2.840.114 [id number] Univers 00:00:00 00:00:00 [facility] 350.1.13.10 ity of [place] 4.2.7.2.686 [place] as Professio [phone] [address] One 2020-09-24 2020-09-24 Refleticia [facility] 1.2.840.114 [id number] Univers 00:00:00 00:00:00 [facility] 350.1.13.10 ity of [place] 4.2.7.2.686 [place] Professio [phone] [address] Office [facility] One 2020-09-11 2020-09-11 Amy [facility] 1.2.840.114 [id number] Univers 00:00:00 00:00:00 [facility] 350.1.13.10 [place] of [place] 4.2.7.2.686 [place] as Professio [phone] Me dical nal 044 Branch Office Building One 2020-09-09 2020-09-09 Transition Matthew Gonzalez 1.2.840.114 [id number] Univers 00:00:00 00:00:00 of Care Garcia Avery Adolfo 350.1.13.10 ity of [place].2.7.2.686 [place] [phone] [place] [address] Branch 2020-09-04 2020-09-07 [facility] Ronnie Murry [facility] 1.2.8 40.114 [id number] Univers 20:58:00 18:15:00 Encounter Anastasia Giraldo 350.1.13.1 0 ity of [place] 4.2.7.2.686 [facility] [phone] [address] 2020-09-04 2020-09-04 Office [facility] 1.2.126.099 [id number] Univers 16:01:54 17:11:05 Visit Anatoly Hawkins 350.1.13.10 i ty of [place]2.[place].2.[place] [phone] Dc dical nal 220 [facility] 2020-09-04 2020-09-04 Outpatient R MARK [facility] [id number] 5Q-20 Univers 16:00:00 16:00:00 ANATOLY [id number] y [facility] 2020-09-04 2020-09-04 Outpatient R MARK [facility] [id number] Univers 16:00:00 16:00:00 ANATOLY turner [facility] 2020-09-04 2020-09-04 [facility] [id number] Univers 16:00:00 16:00:00 ANATOLY margarette [facility] 2020-09-04 2020-09-04 Orders Doctor TOM 1.2.840.114 [id number] Univers 00:00:00 00:00:00 Only Unassigned, AIDA 350.1.13.10 ity of [place] [facility] 4.2.7.2.686 Raffy as [phone] [facility] [address] 2020-08-13 2020-08-13 Patient [facility] 1.2.840.114 [id number] Univers 00:00:00 00:00:00 Outreach George PRIMARY 350.1.13.10 i ty of [facility] 4.2.7.2.686 [place] [phone] [facility] [address] 2020-08-04 2020-08-04 Amy [facility] 1.2.500.944 [id number] Univers 00:00:00 00:00:00 Anatoly Rodriguez Shruthi 350.1.13.10 i ty of [place]2.7.2.[place] [phone] [facility] 220 [facility] 2020-08-04 2020-08-04 Refleticia [facility] 1.2.840.114 [id number] Univers 00:00:00 00:00:00 [facility] 350.1.13.10 ity of [place] 4.2.7.2.686 [place] as Professio [phone] [facility] [address] Office Building One 2020-08-03 2020-08-03 Orders Doctor VAISHALI 1.2.840.114 [id number] Univers 00:00:00 00:00:00 Only Unassigned, AIDA 350.1.13.10 ity of [place] [facility] 4.2.7.2.686 Raffy as [phone] [address] 2020-07-16 2020-07-16 Outpatient R IGOR [facility] [id number] Univers 11:15:00 11:15:00 WONDIFUL ity o f [facility] 2020-06-22 2020-06-22 Amy [facility] 1.2.840.114 [id number] Univers 00:00:00 00:00:00 W[facility] 350.1.13.10 ity of [place] 4.2.7.2.686 [place] as Professio [phone] [facility] [address] [place] Office Building One 2020-06-19 2020-06-19 [facility] [id number] Q-20 Univers 14:00:00 14:00:00 WONDIFUL [id number] ity o f [facility] 2020-06-08 2020-06-08 Amy [facility] 1.2.840.114 [id number] Univers 00:00:00 00:00:00 [facility] 350.1.13.10 ity of [place] 4.2.7.2.686 [place] Professio [phone] [address] One 2020-06-05 2020-06-05 Amy [facility] 1.2.840.114 [id number] Univers 00:00:00 00:00:00 [facility] 350.1.13.10 ity of [place] 4.2.7.2.686 [place] Professio [phone] [address] One 2020-05-28 2020-05-28 Out[facility] [id number] Q-20 Univers 15:00:00 15:00:00 WONDIFUL [id number] ity o [facility] 2020-05-28 2020-05-28 Outpatient [facility] [id number] Univers 15:00:00 15:00:00 WONDIFUL ity o f [facility] 2020-05-19 2020-05-19 Amy [facility] 1.2.840.114 [id number] Univers 00:00:00 00:00:00 [facility] 350.1.13.10 ity of [place] 4.2.7.2.686 [place] Professio [phone] [address] One 2020-05-14 2020-05-14 Guillermoleticia [facility] 1.2.840.114 [id number] Univers 00:00:00 00:00:00 [facility] 350.1.13.10 ity of [place] 4.2.7.2.686 [place] Professio [phone] [address] One 2020-05-13 2020-05-13 Jesse [facility] 1.2.840.114 [id number] Univers 00:00:00 00:00:00 Management [facility] 350.1.13.10 ity of [place] 4.2.7.2.686 [place] Professio [phone] [address] Office [facility] 2020-05-08 2020-05-08 [facility] 1.2.751.738 [id number] Univers 14:47:36 23:59:00 Encounter Wondiful A [place] 350.1.13.10 ity of [place].2.[place] [phone] [facility] [address] 2020-05-08 2020-05-08 Outpatient R MARK [facility] [id number] 5Q-20 Univers 16:30:00 16:30:00 ANATOLY [id number] ity of [facility] 2020-05-08 2020-05-08 Outpatient R MARK [facility] [id number] Univers 16:30:00 16:30:00 ANATOLY ity of [facility] 2020-05-08 2020-05-08 Office [facility] 1.2.840.114 [id number] Univers 13:10:21 13:58:56 Visit [facility] 350.1.13.10 ity of [place] 4.2.7.2.686 [place] Professio [phone] [address] Office [facility] 2020-05-08 2020-05-08 Orders Doctor VAISHALI 1.2.840.114 [id number] Univers 00:00:00 00:00:00 Only Unassigned, AIDA 350.1.13.10 ity of [place] [facility] 4.2.7.2.686 Raffy as [phone] [facility] 009 Branch 2020-05-01 2020-05-01 Outpatient R IGOR [facility] [id number] Q-20 Univers 10:30:00 10:30:00 WONDIFUL [id number] ity o f [facility] 2020-05-01 2020-05-01 Outpatient R IGOR [facility] [id number] Univers 10:30:00 10:30:00 WONDIFUL ity o f [facility] 2020-04-17 2020-04-17 Telemedici [facility] 1.2.840.114 [id number] Univers 11:00:00 11:30:00 ne Visit Sisi Kylah Hawkins 350.1.13.10 it[place] [phone] Dc dical nal 134 [facility] 2020-04-17 2020-04-17 Outpatient R ADUM, [facility] [id number] -[id number] Univers 11:00:00 11:00:00 SISI [id number] ity [facility] 2020-04-17 2020-04-17 Outpatient R AD, [facility] [id number] Univers 11:00:00 11:00:00 [facility] 2020-04-14 2020-04-14 Refleticia [facility] 1.2.840.114 [id number] Univers 00:00:00 00:00:00 [facility] 350.1.13.10 ity of [place] 4.2.7.2.686 [place] as Professio [phone] Dc dical nal 044 [facility] One 2020-04-13 2020-04-13 Refleticia [facility] 1.2.465.782 [id number] Univers 00:00:00 00:00:00 Anatoly Hawkins 350.1.13.10 i ty of [place].2.[place] [phone] Dc dical nal 220 [facility] 2020-04-08 2020-04-08 [facility]phone [facility] 1.2.005.455 [id number] Univers 00:00:00 00:00:00 Sisi Hawkins 350.1.13.10 ity of [place] [phone] Dc dical nal 134 [facility] 2020-04-07 2020-04-07 Case [facility] 1.2.840.114 [id number] Univers 00:00:00 00:00:00 Management Sisi Hawkins 350.1.13.10 it[place] of [place].2.[place] [phone] Dc dical [address] 2020-04-03 2020-04-03 Office Ad, [facility] 1.2.840.114 [id number] Univers 13:15:01 14:30:02 Visit Sisi Montero [place] 350.1.13.10 it[place] of [place].7.2.[place] [phone] [address] 2020-04-03 2020-04-03 Outpatient R ADUM, [facility] [id number] Univers 13:30:00 13:30:00 SISI ity [facility] 2020-04-03 2020-04-03 Outpatient R ADUM, [facility] [id number] -[id number] Univers 10:30:00 10:30:00 SISI [id number] ity [facility] 2020-04-03 2020-04-03 Outpatient R ADUM, [facility] [id number] Univers 10:30:00 10:30:00 [facility] 2020-04-01 2020-04-01 Telephone Serena Garsia [facility] 1..840.114 [id number] Univers 00:00:00 00:00:00 Cam [place] 350.1.13.10 i ty [place].2.[place] [phone] [address] 2020-03-20 2020-03-20 Refill [facility] 1.2.840.114 [id number] Univers 00:00:00 00:00:00 [facility] 350.1.13.10 ity of [place] 4.2.7.2.686 [place] Professio [phone] [address] 2020-03-09 2020-03-09 Refleticia [facility] 1.2.840.114 [id number] Univers 00:00:00 00:00:00 [facility] 350.1.13.10 ity of [place] 4.2.7.2.686 [place] Professio [phone] [address] 2020-02-17 2020-02-17 Telephone [facility] 1.2.840.114 [id number] Univers 00:00:00 00:00:00 W[facility] 350.1.13.10 ity of [place] 4.2.7.2.686 [place] as Professio [phone] Dc dical nal 044 [facility] One 2020-02-17 2020-02-17 Telephone [facility] 1.2.840.114 [id number] Univers 00:00:00 00:00:00 W[facility] A Health 350.1.13.10 ity of [place] 4.2.7.2.686 [place] as Professio [phone] Dc dical nal 044 [facility] One 2020-01-13 2020-01-13 Refill [facility] 1.2.840.114 [id number] Univers 00:00:00 00:00:00 W[facility]iful A Health 350.1.13.10 ity of [place] 4.2.7.2.686 [place] as Professio [phone] Dc dical nal 044 [facility] 2020-01-11 2020-01-11 Outbound Sales Agent 1, Adc Lab [facility] 1.2.840.114 [id number] Univers 10:55:34 11:10:34 Visit Anatoly Villegas 350.1.13.10 it[place] of [place] [phone] [address] 2020-01-11 2020-01-11 Outpatient R [facility] [id number] -[id number] Univers 11:00:00 11:00:00 [id number] ity of [facility] 2020-01-11 2020-01-11 Outpatient R [facility] [id number] Univers 11:00:00 11:00:00 ity [facility] 2020-01-10 2020-01-10 Office [facility] 1.2.868.560 [id number] Univers 16:40:13 17:43:53 Visit Anatoly Hawkins 350.1.13.10 i ty [place] [phone] Dc dical [facility] 220 [facility] 2020-01-10 2020-01-10 Out[facility] [id number] 5Q-20 Univers 16:30:00 16:30:00 [facility]ATOLY [id number] [facility] 2020-01-10 2020-01-10 Outpatient R [facility] [id number] Univers 16:30:00 16:30:00 ANATOLY [facility] 2019-12-10 2019-12-10 Orders Doctor VAISHALI 1.2.840.114 [id number] Univers 00:00:00 00:00:00 Only Unassigned, AIDA 350.1.13.10 ity of [place] [facility] 4.2.7.2.686 Raffy as [phone] [address] 2019-12-10 2019-12-10 Telephone [facility] 1.2.840.114 [id number] Univers 00:00:00 00:00:00 Anatoly Hawkins 350.1.13.10 [place] [phone] Dc dic[address] 2019-12-05 2019-12-05 Refill [facility] [id number] [id number] Univers 00:00:00 00:00:00 Anatoly Hawkins 350.1.13.10 [place] [phone] Dc dic[address] 2019-11-06 2019-11-06 [facility] [id number] Univers 15:40:00 15:40:00 LILY [id number] ity o f [facility] 2019-11-06 2019-11-06 [facility] [id number] Univers 15:40:00 15:40:00 LILY roy o f [facility] 2019-11-03 2019-11-03 Ref[facility]icia [facility] 1.2.840.114 [id number] Univers 00:00:00 00:00:00 Wondiful [facility] 350.1.13.10 [place]y [place] 4.2.7.2.686 Raffy as Professio [phone] Me dical nal [address] 2019-11-01 2019-11-01 Outpatient R KILO [facility] [id number] Univers 11:35:42 23:59:00 ERNST ity [facility] 2019-11-01 2019-11-01 [facility] 1.2.840.114 [id number] Univers 11:35:00 23:59:00 Encounter Ernst Hawkins 350.1.13.10 ity [facility] 4.2.7.2.686 [facility] [phone] [facility] [address] 2019-11-01 2019-11-01 [facility] [id number] Univers 11:40:00 11:40:00 ERNST [id number] ity [facility] 2019-11-01 2019-11-01 Orders Doctor TOM 1.2.840.114 [id number] Univers 00:00:00 00:00:00 Only Unassigned, AIDA 350.1.13.[address] [facility] 4.2.7.2.686 [facility] [phone] [place] [facility] [address] 2019-10-25 2019-10-25 [facility] [id number] 5Q-20 Univers 00:00:00 00:00:00 [facility] [id number] [facility] 2019-10-11 [facility] 1.2.273.541 [id number] Univers 14:59:15 16:12:30 Visit Ernst Hawkins 350.1.13.10 i ty [facility] 4.2.7.2.686 [facility] [phone] Dc dical nal 134 [facility] 2019-10-11 2019-10-11 Outpatient R KILO [facility] [id number] 5Q-20 Univers 15:00:00 15:00:00 ERNST [id number] ity [facility] 2019-10-11 2019-10-11 Outpatient [facility] [id number] Univers 15:00:00 15:00:00 ERNST ity [facility] 2019-10-11 2019-10-11 Orders Doctor TOM 1.2.840.114 [id number] Univers 00:00:00 00:00:00 Only Unassigned, AIDA 350.1.13.10 [facility] 4.2.7.2.686 Raffy as [phone] [address] 2019-10-07 2019-10-07 Outpatient R KILO [facility] [id number] Univers 14:00:00 14:00:00 ERNST ity [facility] 2019-09-30 2019-09-30 [facility]ill [facility] [id number] Univers 00:00:00 00:00:00 Anatoly Hawkins 350.1.13.10 [place] [phone] [facility] 220 [facility] 2019-09-20 2019-09-20 Outpatient [facility] [id number] Univers 16:30:00 16:30:00 ANATOLY itmargarette [facility] 2019-09-20 2019-09-20 [facility]medici [facility] 1.2.840.114 [id number] Univers 09:52:35 10:22:35 ne Visit Anatoly Hawkins 350.1.13.10 [place] [phone] [facility] 220 [facility] 2019-08-30 2019-08-30 Outbound Sales Agent 2, Adc Lab [facility] 1.2.840.114 [id number] Univers 09:08:00 09:23:00 Visit Lily Jenkins 350.1.13.10 [place] [phone] [facility] 353 [facility] 2019-08-30 2019-08-30 Outpatient R [facility] [id number] -[id number] Univers 09:15:00 09:15:00 [id number] ity [facility] 2019-08-30 2019-08-30 Outpatient R GREGORY [facility] [id number] Univers 09:15:00 09:15:00 LILY turner o f [facility] 2019-08-30 2019-08-30 Orders Doctor VAISHALI 1.2.840.114 [id number] Univers 00:00:00 00:00:00 Only Unassigned, AIDA 350.1.13.10 ity of [place] [facility] 4.2.7.2.686 Raffy as [phone] [address] 2019-08-22 2019-08-22 Outpatient [facility] [id number]-20 Univers 14:00:00 14:00:00 WONDIFUL [id number] ity o f [facility] 2019-08-22 2019-08-22 Outpatient [facility] [id number] Univers 14:00:00 14:00:00 WONDIFUL ity o f [facility] 2019-08-22 2019-08-22 Telemedici [facility] 1.2.840.114 [id number] Univers 09:19:01 09:49:01 ne Visit [facility] 350.1.13.10 [place] 4.2.7.2.686 [place]affy as Professio [phone] [facility] [address] Office [facility] 2019-08-22 2019-08-22 Transition Matthew Chávez 1.2.840.114 [id number] Univers 00:00:00 00:00:00 of Care Jessica Mata 350.1.13.10 it y [place] [phone] [facility] [address] 2019-08-20 2019-08-20 Transition Matthew Chávez 1.2.840.114 [id number] Univers 00:00:00 00:00:00 of Care Jessica Mata 350.1.13.10 [place] y [place] [phone] [address] 2019-08-19 2019-08-19 Telephone Igor LAMINDY 1.2.840.114 [id number] Univers 00:00:00 00:00:00 [facility] 350.1.13.10 [place] 4.2.7.2.686 [place] Professio [phone] Dc dical nal [address] [facility] 2019-08-12 2019-08-16 Inpatient U JUAN ANTONIO [facility] [id number] Univers 22:36:00 12:57:00 CAPPS ity o f [facility] 2019-08-12 2019-08-16 Hospital Diana Romano 1.2.840.114 [id number] Univers 22:36:00 12:57:00 Encounter Capps Sealy 350.1.13.10 ity of Hospital 4.2.7.2.686 [place]aff[place] as [phone] [facility] [address] 2019-08-16 2019-08-16 Outpatient R [facility] [id number] -[id number] Univers 10:00:00 10:00:00 ity of [facility] 2019-08-16 2019-08-16 Outpatient R [facility] [id number] Univers 10:00:00 10:00:00 ity of [facility] 2019-08-12 2019-08-12 Telephone [facility] [id number] Univers 00:00:00 00:00:00 Lily Hawkins 350.1.13.10 [place] [phone] Dc dical nal 059 [facility] 2019-08-09 2019-08-09 Telephone Diana Jenkins 1.2.133.451 [id number] Univers 00:00:00 00:00:00 Lily Parra 350.1.13.10 i ty of Hospital 4.2.7.2.686 [place] [phone] [address] 2019-08-07 2019-08-07 Telephone Diana Jenkins [id number] [id number] Univers 00:00:00 00:00:00 Lily Parra 350.1.13.10 i ty of Hospital 4.2.7.2.686 [place] [phone] [address] 2019-08-05 2019-08-06 Office [facility] 1.2.840.114 [id number] Univers 10:54:42 21:31:12 Visit Lily Hawkins 350.1.13.10 [place] [phone] Dc dical nal 059 [facility] 2019-08-05 2019-08-05 Outpatient R GREGORY [facility] [id number] Univers 11:20:00 11:20:00 LILY turner o f [facility] 2019-08-05 2019-08-05 Orders Doctor VAISHALI 1.2.840.114 [id number] Univers 00:00:00 00:00:00 Only Unassigned, AIDA 350.1.13.10 ity of [place] [facility] 4.2.7.2.686 Raffy as [phone] [address] 2019-02-04 2019-02-04 Office [facility] 1.2.840.114 [id number] 74 [facility] 09:40:44 10:41:11 Visit Lily Hawkins 350.1.13.10 [place] [phone] Dc dicky nal 059 [facility] 2019-02-04 2019-02-04 Orders Doctor TOM 1.2.840.114 [id number] Univers 00:00:00 00:00:00 Only Unassigned, AIDA 350.1.13.10 ity of [place] [facility] 4.2.7.2.686 Raffy as [phone] [address] 2019-01-04 2019-01-04 Office Mark [facility] 1.2.012.392 [id number] Univers 14:30:15 15:51:35 Visit Anatoly Hawkins 350.1.13.10 i ty [place] [phone] Dc dical nal 220 [facility] 2019-01-04 2019-01-04 Orders Doctor TOM 1.2.840.114 [id number] Univers 00:00:00 00:00:00 Only Unassigned, AIDA 350.1.13.10 ity of [place] [facility] 4.2.7.2.686 Raffy as [phone] [address] 2018-12-20 2018-12-20 Orders Doctor TOM 1.2.840.114 [id number] Univers 00:00:00 00:00:00 Only Unassigned, AIDA 350.1.13.10 ity of [place] [facility] 4.2.7.2.686 [place]aff[place] as [phone] [address] 2018-12-06 2018-12-06 Orders Doctor VAISHALI 1.2.840.114 [id number] Univers 00:00:00 00:00:00 Only Unassigned, AIDA 350.1.13.10 ity of [place] [facility] 4.2.7.2.686 Raffy as [phone] [address] 2018-06-27 2018-06-27 [facility] [id number] 11:57:00 11:57:00 [facility]ant [facility] 2018-06-15 2018-06-15 [facility] [id number] 16:24:00 16:24:00 [facility] [employer] [facility] 2018-06-13 2018-06-13 [facility] [id number] 13:30:00 13:30:00 [facility] [employer] [facility] 2017-12-12 2017-12-12 [facility] [id number] 13:22:00 13:22:00 [facility] 2017-11-20 2017-11-20 [facility] [id number] 10:30:00 10:30:00 [facility] [employer] [facility] 2017-11-02 2017-11-02 [facility] [id number] 15:15:00 15:15:00 [facility] Results Test Description Test Time Test Comments Results Result Comments Source POCT GLUCOSE (AUTOMATED) 2021-02-12 21:30:54 Test Item Value Reference Range Interpretation Comme nts POCT GLU (test code = 3960090766) 441 mg/dL 70-110 H Lab Interpretation (test code = 61770-8) Abnormal [facility] GLUCOSE (AUTOMATED)2021-02-12 21:30:54 Test Item Value Reference Range Interpretation Comments POCT GLU (test code = 3927559466) 441 mg/dL 70-110 H Lab Interpretation (test code = Abnormal 03259-6) [facility] METABOLIC PANEL (NA, K, CL, CO2, GLUCOSE, BUN, CREATININE, CA)2021-02-12 21:22:44 Test Item Value Reference Range Interpretation Comments NA (test code = 128 mmol/L 135-145 L 1688257893) K (test code = 4.3 mmol/L 3.5-5.0 6685877014) CL (test code = 99 mmol/L 98-108 8346050859) CO2 TOTAL (test code = 19 mmol/L 23-31 L 4434750262) AGAP (test code = 2-16 0130856862) BUN (test code = 13 mg/dL 7-23 1344653716) GLUCOSE (test code = 522 mg/dL 70-110 HH 1186824385) CREATININE (test code = 0.62 mg/dL 0.50-1.04 0260915734) CALCIUM (test code = 8.2 mg/dL 8.6-10.6 L 6845473588) eGFR (test code = mL/min/1.73m2 4912456960) NISHA (test code = NISHA) Association of [...] tests). Lab Interpretation Abnormal (test code = 21737-7) [facility] METABOLIC PANEL (NA, K, CL, CO2, GLUCOSE, BUN, CREATININE, CA)2021-02-12 21:22:44 Test Item Value Reference Range Interpretation Comments NA (test code = 128 mmol/L 135-145 L 7801615956) K (test code = 4.3 mmol/L 3.5-5.0 3771517288) CL (test code = 99 mmol/L 98-108 3147157066) CO2 TOTAL (test code = 19 mmol/L 23-31 L 5804329876) AGAP (test code = 2-16 4678566661) BUN (test code = 13 mg/dL 7-23 4064260474) GLUCOSE (test code = 522 mg/dL 70-110 HH 5445253621) CREATININE (test code = 0.62 mg/dL 0.50-1.04 3893718663) CALCIUM (test code = 8.2 mg/dL 8.6-10.6 L 4997845148) eGFR (test code = mL/min/1.73m2 2815378203) NISHA (test code = NISHA) Association of [...] tests). Lab Interpretation Abnormal (test code = 82529-0) [facility] WITH [id number] 20:50:11 Test Item Value Reference Range Interpretation Comments WBC (test code = See_Comment [Automated message] 1190-2) The system [employer] generated this result transmitted ref erence range: 4.30 - 1 1.10 10*3/?L. The re ference range was not u sed to interpret this result as normal/abnor mal. RBC (test code = See_Comment [Automated message] 322-8) The system [employer] generated this result transmitted ref erence range: [...] RDW-SD (test code 40.4 fL 39.0-49.9 = 20620-2) RDW-CV (test code 12.7 % 12.0-15.5 = 788-0) PLT (test code = See_Comment [Automated message] 777-3) The system whic h generated this result transmitted ref erence range: 166 - 35 8 10*3/?L. The re ference range was not u sed to interpret this result as normal/abnor mal. MPV (test code = 10.3 fL 9.5-12.9 30885-2) NRBC/100 WBC (test See_Comment [Automat ed message] code = 9963957047) The syste m which generated this result transmitted ref erence range: 0.0 - 10 .0 /100 WBCs. The refer ence range was not u sed to interpret this result as normal/abnor mal. NRBC x10^3 (test <0.01 See_Comment [Automated message] code = 4059390960) The syste m which generated this result transmitted ref erence range: 10*3/?L. The reference range was not used to interpr et this result as normal/abnormal . GRAN MAT (NEUT) % 68.0 % (test code = 770-8) IMM GRAN % (test 0.30 % code = 6203783903) LYMPH % (test code 23.0 % = 736-9) MONO % (test code 5.0 % = 5905-5) EOS % (test code = 3.0 % 713-8) BASO % (test code 0.7 % = 706-2) GRAN MAT 6.52 10*3/uL 1.88-7.09 x10^3(ANC) (test code = 1570796967) IMM GRAN x10^3 0.03 10*3/uL 0.00-0.06 (test code = 9787193088) LYMPH x10^3 (test 2.21 10*3/uL 1.32-3.29 code = 731-0) MONO x10^3 (test 0.48 10*3/uL 0.33-0.92 code = 742-7) EOS x10^3 (test 0.29 10*3/uL 0.03-0.39 code = 711-2) BASO x10^3 (test 0.07 10*3/uL 0.01-0.07 code = 704-7) [facility] WITH [id number] 20:50:11 Test Item Value Reference Range Interpretation Comments WBC (test code = See_Comment [Automated message] 6690-2) The system [employer] generated this result transmitted ref erence range: 4.30 - 1 1.10 10*3/?L. The re ference range was not u sed to interpret this result as normal/abnor mal. RBC (test code = See_Comment [Automated message] 789-8) The system [employer] generated this result transmitted ref erence range: [...] RDW-SD (test code 40.4 fL 39.0-49.9 = 27481-7) RDW-CV (test code 12.7 % 12.0-15.5 = 788-0) PLT (test code = See_Comment [Automated message] 777-3) The system [employer] generated this result transmitted ref erence range: 166 - 35 8 10*3/?L. The re ference range was not u sed to interpret this result as normal/abnor mal. MPV (test code = 10.3 fL 9.5-12.9 10570-3) NRBC/100 WBC (test See_Comment [Automat ed message] code = 6603353783) The syste m which generated this result transmitted ref erence range: 0.0 - 10 .0 /100 WBCs. The refer ence range was not u sed to interpret this result as normal/abnor mal. NRBC x10^3 (test <0.01 See_Comment [Automated message] code = 2323058472) The syste m which generated this result transmitted ref erence range: 10*3/?L. The reference range was not used to interpr et this result as normal/abnormal . GRAN MAT (NEUT) % 68.0 % (test code = 770-8) IMM GRAN % (test 0.30 % code = 5145395987) LYMPH % (test code 23.0 % = 736-9) MONO % (test code 5.0 % = 5905-5) EOS % (test code = 3.0 % 713-8) BASO % (test code 0.7 % = 706-2) GRAN MAT 6.52 10*3/uL 1.88-7.09 x10^3(ANC) (test code = 0349372661) IMM GRAN x10^3 0.03 10*3/uL 0.00-0.06 (test code = 5797201839) LYMPH x10^3 (test 2.21 10*3/uL 1.32-3.29 code = 731-0) MONO x10^3 (test 0.48 10*3/uL 0.33-0.92 code = 742-7) EOS x10^3 (test 0.29 10*3/uL 0.03-0.39 code = 711-2) BASO x10^3 (test 0.07 10*3/uL 0.01-0.07 code = 704-7) [facility] GLUCOSE (AUTOMATED)2021-02-12 19:42:22 Test Item Value Reference Range Interpretation Comments POCT GLU (test code = 7562502386) 558 mg/dL 70-110 HH Lab Interpretation (test code = Abnormal 14552-6) [facility] GLUCOSE (AUTOMATED)2021-02-12 19:42:22 Test Item Value Reference Range Interpretation Comments POCT GLU (test code = 3032433865) 558 mg/dL 70-110 HH Lab Interpretation (test code = Abnormal 30246-8) [facility] GLUCOSE (AUTOMATED)2021-01-17 18:00:29 Test Item Value Reference Range Interpretation Comments POCT GLU (test code = 0578368249) 327 mg/dL 70-110 H Lab Interpretation (test code = Abnormal 70016-0) [facility] GLUCOSE (AUTOMATED)2021-01-17 13:28:29 Test Item Value Reference Range Interpretation Comments POCT GLU (test code = 0524221182) 374 mg/dL 70-110 H Lab Interpretation (test code = Abnormal 99499-5) [facility] METABOLIC PANEL (NA, K, CL, CO2, GLUCOSE, BUN, CREATININE, CA)2021-01-17 09:28:24 Test Item Value Reference Range Interpretation Comments NA (test code = 132 mmol/L 135-145 L 6816684765) K (test code = 4.5 mmol/L 3.5-5.0 4794406476) CL (test code = 106 mmol/L 98-108 8398592240) CO2 TOTAL (test code = 23 mmol/L 23-31 4134958295) AGAP (test code = 2-16 2265078327) BUN (test code = 19 mg/dL 7-23 0472644759) GLUCOSE (test code = 383 mg/dL 70-110 H 6813729161) CREATININE (test code = 0.71 mg/dL 0.50-1.04 5696284855) CALCIUM (test code = 7.9 mg/dL 8.6-10.6 L 3367931813) eGFR (test code = mL/min/1.73m2 0099565093) NISHA (test code = NISHA) Association of [...] tests). Lab Interpretation Abnormal (test code = 88136-2) [facility] WITH [id number] 09:16:04 Test Item Value Reference Range Interpretation Comments WBC (test code = See_Comment [Automated message] 2890-2) The system [employer] generated this result transmitted ref erence range: 4.30 - 1 1.10 10*3/?L. The re ference range was not u sed to interpret this result as normal/abnor mal. RBC (test code = See_Comment [Automated message] 619-8) The system [employer] generated this result transmitted ref erence range: [...] RDW-SD (test code 39.3 fL 39.0-49.9 = 88684-4) RDW-CV (test code 12.4 % 12.0-15.5 = 788-0) PLT (test code = See_Comment [Automated message] 267-3) The system [employer] generated this result transmitted ref erence range: 166 - 35 8 10*3/?L. The re ference range was not u sed to interpret this result as normal/abnor mal. MPV (test code = 11.0 fL 9.5-12.9 11799-5) NRBC/100 WBC (test See_Comment [Automat ed message] code = 0699346707) The syste m which generated this result transmitted ref erence range: 0.0 - 10 .0 /100 WBCs. The refer ence range was not u sed to interpret this result as normal/abnor mal. NRBC x10^3 (test <0.01 See_Comment [Automated message] code = 8930142617) The syste m which generated this result transmitted ref erence range: 10*3/?L. The reference range was not used to interpr et this result as normal/abnormal . GRAN MAT (NEUT) % 52.9 % (test code = 770-8) IMM GRAN % (test 0.40 % code = 1166745065) LYMPH % (test code 35.0 % = 736-9) MONO % (test code 6.7 % = 5905-5) EOS % (test code = 4.0 % 713-8) BASO % (test code 1.0 % = 706-2) GRAN MAT 3.88 10*3/uL 1.88-7.09 x10^3(ANC) (test code = 4436609982) IMM GRAN x10^3 0.03 10*3/uL 0.00-0.06 (test code = 5543949693) LYMPH x10^3 (test 2.56 10*3/uL 1.32-3.29 code = 731-0) MONO x10^3 (test 0.49 10*3/uL 0.33-0.92 code = 742-7) EOS x10^3 (test 0.29 10*3/uL 0.03-0.39 code = 711-2) BASO x10^3 (test 0.07 10*3/uL 0.01-0.07 code = 704-7) [facility] GLUCOSE (AUTOMATED)2021-01-16 22:25:02 Test Item Value Reference Range Interpretation Comments POCT GLU (test code = 9683295024) 301 mg/dL 70-110 H Lab Interpretation (test code = Abnormal 14664-4) [facility] GLUCOSE (AUTOMATED)2021-01-16 21:22:23 Test Item Value Reference Range Interpretation Comments POCT GLU (test code = 6375652680) 228 mg/dL 70-110 H Lab Interpretation (test code = Abnormal 55161-1) [facility]OTE[facility], [id number] 19:28:10 Test Item Value Reference Range Interpretation Comments dLDL Chol (test code = 08920-6) 51 mg/dL <130 Lab Interpretation (test code = Normal 32404-7) [facility]2021-01-16 13:20:02 Test Item Value Reference Range Interpretation Comments POCT GLU (test code = 9994869493) 282 mg/dL 70-110 H Lab Interpretation (test code = Abnormal 54786-0) [facility] Alliance[facility]id Panel (Total Cholesterol, Triglycerides, HDL) - [id number] 10:51:04 Test Item Value Reference Range Interpretation Comments CHOL (test code = 123 mg/dL 120-200 9375014819) HDL (test code = 24 mg/dL >50 L 1951626128) HDLC RATIO (test code = See_Comment H [Au tomated message] 7163000408) The system [employer] generated this result transmitted ref erence range: <=4.5. T he reference range was not used to int erpret this result as normal/abnormal . TRIG (test code = 437 mg/dL 30-170 H 3026625898) LDL CHOL (test code = Unable to calculate 02869-1) LDL due to elev ated triglyceride le sweetie greater than 40 0 mg/dL. VLDL (test code = 87 mg/dL 5-60 H 7837434479) Lab Interpretation Abnormal (test code = 44581-4) [facility] (NA, K, CL, CO2, GLUCOSE, BUN, CREATININE, CA)2021-01-16 10:50:48 Test Item Value Reference Range Interpretation Comments NA (test code = 134 mmol/L 135-145 L 7261427594) K (test code = 2.7 mmol/L 3.5-5.0 LL 9662984397) CL (test code = 101 mmol/L 98-108 1924439163) CO2 TOTAL (test code = 24 mmol/L 23-31 2786288207) AGAP (test code = 2-16 9452356887) BUN (test code = 15 mg/dL 7-23 3311493407) GLUCOSE (test code = 160 mg/dL 70-110 H 1672557576) CREATININE (test code = 0.69 mg/dL 0.50-1.04 7308915720) CALCIUM (test code = 8.5 mg/dL 8.6-10.6 L 0352349837) eGFR (test code = mL/min/1.73m2 6585984996) NISHA (test code = NISHA) Association of [...] tests). Lab Interpretation Abnormal (test code = 65074-5) [facility] AllianceMagnesium [id number] 10:35:20 Test Item Value Reference Range Interpretation Comments MAGNESIUM (test code = 5745785837) 1.5 mg/dL 1.7-2.4 L Lab Interpretation (test code = Abnormal 25191-7) [facility] with [id number] 10:03:39 Test Item Value Reference Range Interpretation [...] (test code = 37.2 fL 39.0-49.9 L 19608-7) RDW-CV (test code = 12.1 % 12.0-15.5 788-0) PLT (test code = See_Comment [Automated 777-3) message] The sy stem which generated this result transmitted reference range : 166 - 358 10*3/ ?L. The reference r chelsie was not used to interpret this result as normal/abnormal . MPV (test code = 10.9 fL 9.5-12.9 69051-4) NRBC/100 WBC (test See_Comment [Automat ed code = 9100818405) message] The system which generated this result transmitted reference range : 0.0 - 10.0 /100 WBCs. The refer ence range was not u sed to interpret th is result as normal/abnormal . NRBC x10^3 (test code <0.01 See_Comment [Auto mated = 3102180603) message] The s ystem which generated this result transmitted reference range : 10*3/?L. The reference range was not used to interpret this result as normal/abnormal . GRAN MAT (NEUT) % 37.0 % (test code = 770-8) IMM GRAN % (test code 0.30 % = 3538034415) LYMPH % (test code = 47.8 % 736-9) MONO % (test code = 8.6 % 5905-5) EOS % (test code = 5.0 % 713-8) BASO % (test code = 1.3 % 706-2) GRAN MAT x10^3(ANC) 2.37 10*3/uL 1.88-7.09 (test code = 5112105676) IMM GRAN x10^3 (test <0.03 0.00-0.06 code = 4239623989) LYMPH x10^3 (test code 3.06 10*3/uL 1.32-3.29 = 731-0) MONO x10^3 (test code 0.55 10*3/uL 0.33-0.92 = 742-7) EOS x10^3 (test code = 0.32 10*3/uL 0.03-0.39 711-2) BASO x10^3 (test code 0.08 10*3/uL 0.01-0.07 H = 704-7) Lab Interpretation Abnormal (test code = 76063-5) [facility] GLUCOSE (AUTOMATED)2021-01-16 08:30:27 Test Item Value Reference Range Interpretation Comments POCT GLU (test code = 2090684793) 171 mg/dL 70-110 H Lab Interpretation (test code = Abnormal 88038-3) [facility] GLUCOSE (AUTOMATED)2021-01-16 03:57:09 Test Item Value Reference Range Interpretation Comments POCT GLU (test code = 4921444656) 407 mg/dL 70-110 H Lab Interpretation (test code = Abnormal 11482-1) [facility] ONLY COVID [id number] 02:31:30COVID DMT InterpretationInterpretation/Recommendations:Molecular NAAT Tests for Active [...] 1-2 weeks prior to antibody testing, any iyzkiywlHYYX-YwD-2 IgG antibody result is likely due to [...] COVID-19 testing the patient has had at [facility], including molecular NAAT testing (more commonly known as PCR testing and Rapid ID Now testing) and antibody testing. It does not take into account any testing that a patient has had outside of the [facility] medical record. [facility] LABORATORY SERVICESCOVID [id number]-[id number]-5 Rapid ID NOW (no units) ? ? Date ? Value ? 01/15/2021 ? Not Detected ? ? ? 11/30/2020 ? Not Detected ? ? ? 09/05/2020 ? Not Detected ? [facility] SERVICESUnCook [facility] CenterUrinalysis2021-08-21 02:28:46 Test Item Value Reference Range Interpretation Comments APPEARANCE (test code = Hazy Clear A 4215303836) COLOR (test code = Yellow Yellow [id number]) PH (test code = 4.8-8.0 8047084155) SP GRAVITY (test code = 1.003-1.030 8449795860) GLU U QUAL (test code = 500 mg/dL Normal A 9482693151) BLOOD (test code = 1+ Negative A 3358615112) KETONES (test code = Negative Negative 5902235654) PROTEIN (test code = Negative Negative 2887-8) UROBILIN (test code = Normal Normal 8173076369) BILIRUBIN (test code = Negative Negative 6507831767) NITRITE (test code = Negative Negative 9579727245) LEUK JOSEFA (test code = 500/uL Negative A 7902283082) RBC/HPF (test code = See_Comment H [Autom ated message] [id number]) The system [employer] generated this result transmit anthony reference range : 0 - 3 HPF. The refe rence range was not u sed to interpret th is result as normal/abnormal . WBC/HPF (test code = See_Comment H [Autom ated message] 4148612477) The system [employer] generated this result transmit anthony reference range : 0 - 5 HPF. The refe rence range was not u sed to interpret th is result as normal/abnormal . BACTERIA (test code = Few Negative A 2037588681) MUCOUS (test code = Slight Negative LPF A 1436096798) SQ EPITH (test code = HPF 5941995191) Lab Interpretation (test Abnormal code = 00320-1) [facility]2021-[facility]-16 01:20:09 Test Item Value Reference Range Interpretation Comments POCT GLU (test code = 9374209201) 525 mg/dL 70-110 HH Lab Interpretation (test code = Abnormal 94685-8) [facility] AllianceThyroid Stimulating Hormone (TSH)2021-01-16 00:51:02 Test Item Value Reference Range Interpretation Comments TSH (test code = See_Comment [Automated message] 2488465929) The system [employer] generated this result transmitted ref erence range: 0.45 - 4 .70 mIU/L. The refe rence range was not u sed to interpret this result as normal/abnor mal. Lab Interpretation (test Normal code = 46702-1) [facility] AllianceTrbyron [id number] 00:32:40 Test Item Value Reference Interpretation Comments Range TROPONIN I (test 0.006 ng/mL See_Comment [Automated code = 4644488937) message] The system which generated this result [...] biotin. Lab Interpretation Normal (test code = 26414-5) [facility] AllianceHEPATIC FUNCTION PANEL (52136) (ALB,T.PRO,BILI T,BU/BC,ALT,AST,ALK PHOS)2021-01-16 00:20:20 Test Item Value Reference Range Interpretation Comments TOTAL BILI (test code = 4880755236) 0.8 mg/dL 0.1-1.1 BILI UNCON (test code = 0229812365) 0.5 mg/dL 0.1-1.1 BILI CONJ (test code = 8552736221) 0.0 mg/dL 0.0-0.3 T PROTEIN (test code = 9216087760) 7.6 g/dL 6.3-8.2 ALBUMIN (test code = 5790473976) 4.0 g/dL 3.5-5.0 ALK PHOS (test code = 8063194991) 159 U/L 34-122 H ALTv (test code = 1742-6) 18 U/L 5-35 AST(SGOT) (test code = 7738664025) 27 U/L 13-40 Lab Interpretation (test code = Abnormal 80686-2) [facility] AlliancePhosphorus [id number] 00:19:59 Test Item Value Reference Range Interpretation Comments PHOSPHORUS (test code = 5780140773) 3.4 mg/dL 2.5-5.0 Lab Interpretation (test code = Normal 88277-1) [facility] AllianceGlycosylated Hemoglobin (A1C)2021-01-16 00:15:56 Test Item Value Reference Range Interpretation Comments HGB A1C (test code = >14.0 4.0-5.7 H 4548-4) NISHA (test code = NISHA) Reference RangesNormal: <5.7%Prediabetes: 5.7 - 6.4%Diabetes: > 6.5% Lab Interpretation (test Abnormal code = 05541-4) [facility] AlliancePO[facility]UCOSE (AUTOMATED)2021-01-15 22:36:13 Test Item Value Reference Range Interpretation Comments POCT GLU (test code = 4152242338) 565 mg/dL 70-110 HH Lab Interpretation (test code = Abnormal 33168-5) [facility] AllianceCOVID-19 (ID NOW RAPID TESTING)2021-01-15 21:10:19 Test Item Value Reference Range Interpretation Comments SARS-CoV-2 Rapid ID NOW Not Detected Not Detected (test code = 42036-1) NISHA (test code = NISHA) ID NOW COVID-19 Assay is an isothermal nucleic acid amplification test intended for the qualitative detection of nucleic acid from SARS-CoV-2 viral RNA in nasopharyngeal ([employer] CAB) specimens. It is used under Emergency Use [...] indicated. Lab Interpretation Normal (test code = 96096-8) [facility] HEMOGLOBIN A1C [id number] 16:42:00 Test Item Value Reference Range Interpretation Comments POCT HBA1C (test code = 4548-4) 14 % 4-6 A Lab Interpretation (test code = Abnormal 19498-8) [facility] HEMOGLOBIN A1C [id number] 16:42:00 Test Item Value Reference Range Interpretation Comments POCT HBA1C (test code = 4548-4) 14 % 4-6 A Lab Interpretation (test code = Abnormal 01429-5) [facility] GLUCOSE (AUTOMATED)2020-12-01 17:40:09 Test Item Value Reference Range Interpretation Comments POCT GLU (test code = 350 mg/dL 70-110 H Notifi ed Provider [id number]) Lab Interpretation (test Abnormal code = 88138-7) [facility] GLUCOSE (AUTOMATED)2020-12-01 13:22:36 Test Item Value Reference Range Interpretation Comments POCT GLU (test code = 9655409802) 215 mg/dL 70-110 H Lab Interpretation (test code = Abnormal 14928-2) [facility] (NA, K, CL, CO2, GLUCOSE, BUN, CREATININE, CA)2020-12-01 11:30:25 Test Item Value Reference Range Interpretation Comments NA (test code = 135 mmol/L 135-145 9180570149) K (test code = 4.0 mmol/L 3.5-5.0 0352262469) CL (test code = 104 mmol/L 98-108 7923874021) CO2 TOTAL (test code = 21 mmol/L 23-31 L 8221498611) AGAP (test code = 2-16 2622767746) BUN (test code = 13 mg/dL 7-23 3043310621) GLUCOSE (test code = 388 mg/dL 70-110 H 3978311564) CREATININE (test code = 0.69 mg/dL 0.50-1.04 4799358066) CALCIUM (test code = 8.0 mg/dL 8.6-10.6 L 7823771870) eGFR (test code = mL/min/1.73m2 4925207534) NISHA (test code = NISHA) Association of [...] tests). Lab Interpretation Abnormal (test code = 87845-3) [facility] AllianceMagnesium [id number] 11:30:25 Test Item Value Reference Range Interpretation Comments MAGNESIUM (test code = 6135726104) 1.6 mg/dL 1.7-2.4 L Lab Interpretation (test code = Abnormal 67071-9) [facility] with [id number] 10:38:41 Test Item Value Reference Range Interpretation Comments WBC (test code = See_Comment [Automated 1271-2) message] The sy stem which generated this result transmitted reference range : 4.30 - 11.10 10*3/?L. The reference range was not used to interpret this result as normal/abnormal . RBC (test code = See_Comment [Automated 403-8) message] The sy stem which generated this [...] (test code = 38.6 fL 39.0-49.9 L 47429-9) RDW-CV (test code = 12.1 % 12.0-15.5 788-0) PLT (test code = See_Comment [Automated 777-3) message] The sy stem which generated this result transmitted reference range : 166 - 358 10*3/ ?L. The reference r chelsie was not used to interpret this result as normal/abnormal . MPV (test code = 10.6 fL 9.5-12.9 79434-1) NRBC/100 WBC (test See_Comment [Automat ed code = 2202461183) message] The system which generated this result transmitted reference range : 0.0 - 10.0 /100 WBCs. The refer ence range was not u sed to interpret th is result as normal/abnormal . NRBC x10^3 (test code <0.01 See_Comment [Auto mated = 2589553832) message] The s ystem which generated this result transmitted reference range : 10*3/?L. The reference range was not used to interpret this result as normal/abnormal . GRAN MAT (NEUT) % 73.2 % (test code = 770-8) IMM GRAN % (test code 0.40 % = 2276028086) LYMPH % (test code = 18.4 % 736-9) MONO % (test code = 5.6 % 5905-5) EOS % (test code = 2.0 % 713-8) BASO % (test code = 0.4 % 706-2) GRAN MAT x10^3(ANC) 7.52 10*3/uL 1.88-7.09 H (test code = 9964284824) IMM GRAN x10^3 (test 0.04 10*3/uL 0.00-0.06 code = 9189978243) LYMPH x10^3 (test code 1.89 10*3/uL 1.32-3.29 = 731-0) MONO x10^3 (test code 0.58 10*3/uL 0.33-0.92 = 742-7) EOS x10^3 (test code = 0.21 10*3/uL 0.03-0.39 711-2) BASO x10^3 (test code 0.04 10*3/uL 0.01-0.07 = 704-7) Lab Interpretation Abnormal (test code = 71337-9) [facility] AlliancePO[facility] GLUCOSE (AUTOMATED)2020-12-01 02:30:55 Test Item Value Reference Range Interpretation Comments POCT GLU (test code = 2902925560) 347 mg/dL 70-110 H Lab Interpretation (test code = Abnormal 79395-3) [facility] AllianceACTIVATED PARTIAL THRMPLAS [id number] 01:05:55 Test Item Value Reference Range Interpretation Comments APTT Patient (test code See_Comment H [Au tomated message] = 3173-2) The system [employer] generated this result transmitted ref erence range: 26 - 36 Seconds. The reference range was not used to int erpret this result as normal/abnormal . Lab Interpretation (test Abnormal code = 55423-5) [facility] AllianceLAB ONLY COVID [id number] 22:44:24COVID DMT InterpretationInterpretation/Recommendations:Molecular NAAT Tests for Active [...] COVID-19 testing the patient has had at [facility], including molecular NAAT testing (more commonly known as PCR testing and Rapid ID Now testing) and antibody testing. It does not take into account any testing that a patient has had outside of the [facility] medical record. [facility] LABORATORY SERVICESCOVID ResultsSARS- CoV-2 Rapid ID NOW (no units) ? ? Date ? Value ? 11/30/2020 ? Not Detected ? ? ? 09/05/2020 ? Not Detected ? [facility] POCT ACT LOW [id number] 22:26:21 Test Item Value Reference Range Interpretation Comments ACTLR (test code = See_Comment H [Automat ed message] 1693985658) The system [employer] generated this result transmitted ref erence range: 89 - 169 Seconds. The reference range was not used to int erpret this result as normal/abnormal . Lab Interpretation (test Abnormal code = 13990-5) [facility] AlliancePOCT ACT LOW [id number] 22:03:24 Test Item Value Reference Range Interpretation Comments ACTLR (test code = See_Comment H [Automat ed message] 4159138858) The system [employer] generated this result transmitted ref erence range: 89 - 169 Seconds. The reference range was not used to int erpret this result as normal/abnormal . Lab Interpretation (test Abnormal code = 56678-2) [facility] METABOLIC PANEL (NA, K, CL, CO2, GLUCOSE, BUN, CREATININE, CA)2020-11-30 16:00:24 Test Item Value Reference Range Interpretation Comments NA (test code = 130 mmol/L 135-145 L 9151412380) K (test code = 3.8 mmol/L 3.5-5.0 0778459954) CL (test code = 98 mmol/L 98-108 3901182523) CO2 TOTAL (test code = 25 mmol/L 23-31 1841712774) AGAP (test code = 2-16 0772530798) BUN (test code = 12 mg/dL 7-23 7030436798) GLUCOSE (test code = 624 mg/dL 70-110 HH 4062203238) CREATININE (test code = 0.63 mg/dL 0.50-1.04 9257282292) CALCIUM (test code = 8.2 mg/dL 8.6-10.6 L 9862183655) eGFR (test code = mL/min/1.73m2 9983430078) NISHA (test code = NISHA) Association of [...] tests). Lab Interpretation Abnormal (test code = 95733-7) [facility] AllianceCOVID-19 (ID NOW RAPID TESTING)2020-11-30 13:55:18 Test Item Value Reference Range Interpretation Comments SARS-CoV-2 Rapid ID NOW Not Detected Not Detected (test code = 62416-8) NISHA (test code = NISHA) ID NOW COVID-19 Assay is an isothermal nucleic acid amplification test intended for the qualitative detection of nucleic acid from SARS-CoV-2 viral RNA in nasopharyngeal ([employer]PERVIS[employer] CAB) specimens. It is used under Emergency Use [...] indicated. Lab Interpretation Normal (test code = 02392-8) [facility] GLUCOSE(AGE >30DAYS)2020-10-07 19:39:00 Test Item Value Reference Range Interpretation Comments POCT Glu (age>30days) (test code = 189 mg/dL 70-110 A 3342) Lab Interpretation (test code = Abnormal 28966-5) [facility] GLUCOSE(AGE >30DAYS)2020-10-07 19:39:00 Test Item Value Reference Range Interpretation Comments POCT Glu (age>30days) (test code = 189 mg/dL 70-110 A 3342) Lab Interpretation (test code = Abnormal 78045-2) [facility] GLUCOSE (AUTOMATED)2020-09-07 22:31:04 Test Item Value Reference Range Interpretation Comments POCT GLU (test code = 4674031736) 72 mg/dL 70-110 Lab Interpretation (test code = Normal 39890-3) [facility] GLUCOSE (AUTOMATED)2020-09-07 21:54:57 Test Item Value Reference Range Interpretation Comments POCT GLU (test code = 1411110127) 88 mg/dL 70-110 Lab Interpretation (test code = Normal 29741-1) [facility] AllianceVITAMIN D, [id number] 21:07:23 Test Item Value Reference Range Interpretation Comments VIT D 25OH (test code = <13 25-80 L 01783-3) NISHA (test code = NISHA) Deficiency: <20 ng/mLInsufficiency: 20-24 ng/mLOptimal: 25-80 ng/mL Lab Interpretation (test Abnormal code = 87954-6) [facility] GLUCOSE (AUTOMATED)2020-09-07 20:17:01 Test Item Value Reference Range Interpretation Comments POCT GLU (test code = 0339390511) 47 mg/dL 70-110 LL Lab Interpretation (test code = Abnormal 13362-1) [facility] GLUCOSE (AUTOMATED)2020-09-07 17:19:43 Test Item Value Reference Range Interpretation Comments POCT GLU (test code = 6821950279) 46 mg/dL 70-110 LL Lab Interpretation (test code = Abnormal 01935-7) [facility] GLUCOSE (AUTOMATED)2020-09-07 17:19:42 Test Item Value Reference Range Interpretation Comments POCT GLU (test code = 4990996497) 183 mg/dL 70-110 H Lab Interpretation (test code = Abnormal 25305-5) [facility] WITH [id number] 11:16:01 Test Item Value Reference Range Interpretation [...] RDW-SD (test code = 42.8 fL 39.0-49.9 32617-7) RDW-CV (test code = 13.1 % 12.0-15.5 788-0) PLT (test code = See_Comment [Automated 777-3) message] The sy stem which generated this result transmitted reference range : 166 - 358 10*3/ ?L. The reference r chelsie was not used to interpret this result as normal/abnormal . MPV (test code = 11.4 fL 9.5-12.9 58217-1) IPF % (test code = 3.7 % 1.3-7.7 Platelet count 3495152696) measured by fluorescence method. NRBC/100 WBC (test See_Comment [Automat ed code = 0572826558) message] The system which generated this result transmitted reference range : 0.0 - 10.0 /100 WBCs. The refer ence range was not u sed to interpret th is result as normal/abnormal . NRBC x10^3 (test code <0.01 See_Comment [Auto mated = 8935481906) message] The s ystem which generated this result transmitted reference range : 10*3/?L. The reference range was not used to interpret this result as normal/abnormal . GRAN MAT (NEUT) % 82.6 % (test code = 770-8) IMM GRAN % (test code 0.50 % = 5405079603) LYMPH % (test code = 8.8 % 736-9) MONO % (test code = 6.3 % 5905-5) EOS % (test code = 1.6 % 713-8) BASO % (test code = 0.2 % 706-2) GRAN MAT x10^3(ANC) 11.20 10*3/uL 1.88-7.09 H (test code = 5025558025) IMM GRAN x10^3 (test 0.07 10*3/uL 0.00-0.06 H code = 4682588227) LYMPH x10^3 (test 1.19 10*3/uL 1.32-3.29 L code = 731-0) MONO x10^3 (test code 0.85 10*3/uL 0.33-0.92 = 742-7) EOS x10^3 (test code 0.22 10*3/uL 0.03-0.39 = 711-2) BASO x10^3 (test code 0.03 10*3/uL 0.01-0.07 = 704-7) Lab Interpretation Abnormal (test code = 39009-0) [facility] AlliancePO[facility] (AUTOMATED)2020-09-07 11:07:40 Test Item Value Reference Range Interpretation Comments POCT GLU (test code = 2167278109) 215 mg/dL 70-110 H Lab Interpretation (test code = Abnormal 95518-3) [facility]. METABOLIC PANEL (07730)2020-09-07 10:56:53 Test Item Value Reference Range Interpretation Comments NA (test code = 137 mmol/L 135-145 8186197879) K (test code = 4.6 mmol/L 3.5-5.0 5651358746) CL (test code = 109 mmol/L 98-108 H 0665728475) CO2 TOTAL (test code = 22 mmol/L 23-31 L 9697647499) AGAP (test code = 2-16 2412451922) BUN (test code = 8 mg/dL 7-23 0129866735) GLUCOSE (test code = 177 mg/dL 70-110 H 9795011337) CREATININE (test code = 0.62 mg/dL 0.50-1.04 4142233175) TOTAL BILI (test code = 0.3 mg/dL 0.1-1.1 5073491821) CALCIUM (test code = 7.9 mg/dL 8.6-10.6 L 5587408477) T PROTEIN (test code = 5.1 g/dL 6.3-8.2 L 4694172102) ALBUMIN (test code = 2.7 g/dL 3.5-5.0 L 4807207256) ALK PHOS (test code = 73 U/L 34-122 8404570988) ALTv (test code = 14 U/L 5-35 1742-6) AST(SGOT) (test code = 23 U/L 13-40 2066759814) eGFR (test code = mL/min/1.73m2 2494597377) NISHA (test code = NISHA) Association of [...] tests). Lab Interpretation Abnormal (test code = 85287-3) [facility] 30 [id number] 06:01:46 Test Item Value Reference Range Interpretation Comments ISIDORO 30 (test code 17.8 ug/dL = 3145235130) NISHA (test code = Normal peak serum cortisol NISHA) is greater than 20 ug/dL 30-60 minutes after 25 units of Cosyntropin IV. Biotin has been reported to cause a positive bias, interpret results relative to patient's use of biotin. [facility] AllianceCORTISOL STIMULATION 0 [id number] 05:52:48 Test Item Value Reference Range Interpretation Comments ISIDORO 0 (test code = 15.7 ug/dL 4.5-23.0 5549127404) NISHA (test code = NISHA) Biotin has been reported to cause a positive bias, interpret results relative to patient's use of biotin. Lab Interpretation (test Normal code = 24053-7) [facility] AllianceCORTISOL STIMULATION 60 [id number] 05:51:28 Test Item Value Reference Range Interpretation Comments ISIDORO 60 (test code 16.6 ug/dL = 4540628590) NISHA (test code = Normal peak serum cortisol NISHA) is greater than 20 ug/dL 30-60 minutes after 25 units of Cosyntropin IV. Biotin has been reported to cause a positive bias, interpret results relative to patient's use of biotin. [facility] GLUCOSE (AUTOMATED)2020-09-06 21:06:52 Test Item Value Reference Range Interpretation Comments POCT GLU (test code = 9554065785) 73 mg/dL 70-110 Lab Interpretation (test code = Normal 18545-0) [facility] GLUCOSE (AUTOMATED)2020-09-06 20:00:38 Test Item Value Reference Range Interpretation Comments POCT GLU (test code = 5671112184) 38 mg/dL 70-110 LL Lab Interpretation (test code = Abnormal 99665-3) [facility] [id number] 18:39:49 Test Item Value Reference Range Interpretation Comments ISIDORO AM (test code = 1.6 ug/dL 4.5-23.0 L 3039076414) NISHA (test code = NISHA) Biotin has been reported to cause a positive bias, interpret results relative to patient's use of biotin. Lab Interpretation (test Abnormal code = 36670-6) [facility] GLUCOSE (AUTOMATED)2020-09-06 16:42:57 Test Item Value Reference Range Interpretation Comments POCT GLU (test code = 8307547015) 120 mg/dL 70-110 H Lab Interpretation (test code = Abnormal 77609-2) [facility] AlliancePO[facility] (AUTOMATED)2020-09-06 12:48:51 Test Item Value Reference Range Interpretation Comments POCT GLU (test code = 2147226036) 217 mg/dL 70-110 H Lab Interpretation (test code = Abnormal 97357-5) [facility] AllianceN-TERMINAL [id number] 11:44:45 Test Item Value Reference Range Interpretation Comments NT-proBNP (test code 423 pg/mL See_Comment H [Autom ated = 7542103320) message] The system which generated this result transmitted reference range : <=125. The reference range was not used to interpret this result as normal/abnormal . NISHA (test code = NISHA) Biotin has been reported to cause a negative bias, interpret results relative to patient's use of biotin. Lab Interpretation Abnormal (test code = 35207-5) [facility] AllianceMAGNESIUM2021-04-11 11:36:41 Test Item Value Reference Range Interpretation Comments MAGNESIUM (test code = 1389112248) 1.7 mg/dL 1.7-2.4 Lab Interpretation (test code = Normal 99633-3) [facility] AllianceCOMP. METABOLIC PANEL (46964)2020-09-06 11:36:21 Test Item Value Reference Range Interpretation Comments NA (test code = 138 mmol/L 135-145 1499936995) K (test code = 4.1 mmol/L 3.5-5.0 6272670401) CL (test code = 110 mmol/L 98-108 H 8813131133) CO2 TOTAL (test code = 25 mmol/L 23-31 8127009135) AGAP (test code = 2-16 4109261422) BUN (test code = 9 mg/dL 7-23 0500057185) GLUCOSE (test code = 196 mg/dL 70-110 H 4566855425) CREATININE (test code = 0.78 mg/dL 0.50-1.04 6599105631) TOTAL BILI (test code = 0.4 mg/dL 0.1-1.1 4831633679) CALCIUM (test code = 7.9 mg/dL 8.6-10.6 L 0250966305) T PROTEIN (test code = 5.0 g/dL 6.3-8.2 L 1842669209) ALBUMIN (test code = 2.6 g/dL 3.5-5.0 L 8280493395) ALK PHOS (test code = 65 U/L 34-122 8043264944) ALTv (test code = 13 U/L 5-35 1742-6) AST(SGOT) (test code = 24 U/L 13-40 4621311464) eGFR (test code = mL/min/1.73m2 6015352068) NISHA (test code = NISHA) Association of [...] tests). Lab Interpretation Abnormal (test code = 28855-5) [facility] AlliancePHOSPHORUS2021-04-11 11:36:20 Test Item Value Reference Range Interpretation Comments PHOSPHORUS (test code = 7076437746) 4.3 mg/dL 2.5-5.0 Lab Interpretation (test code = Normal 14794-2) [facility] WITH [id number] 11:26:03 Test Item Value Reference Range Interpretation [...] RDW-SD (test code = 42.7 fL 39.0-49.9 21270-3) RDW-CV (test code = 13.2 % 12.0-15.5 788-0) PLT (test code = See_Comment [Automated 777-3) message] The sy stem which generated this result transmitted reference range : 166 - 358 10*3/ ?L. The reference r chelsie was not used to interpret this result as normal/abnormal . MPV (test code = 10.5 fL 9.5-12.9 74753-6) NRBC/100 WBC (test See_Comment [Automat ed code = 8662845864) message] The system which generated this result transmitted reference range : 0.0 - 10.0 /100 WBCs. The refer ence range was not u sed to interpret th is result as normal/abnormal . NRBC x10^3 (test code <0.01 See_Comment [Auto mated = 2403631360) message] The s ystem which generated this result transmitted reference range : 10*3/?L. The reference range was not used to interpret this result as normal/abnormal . GRAN MAT (NEUT) % 61.4 % (test code = 770-8) IMM GRAN % (test code 0.40 % = 7163452994) LYMPH % (test code = 26.8 % 736-9) MONO % (test code = 7.3 % 5905-5) EOS % (test code = 3.6 % 713-8) BASO % (test code = 0.5 % 706-2) GRAN MAT x10^3(ANC) 4.65 10*3/uL 1.88-7.09 (test code = 3309571165) IMM GRAN x10^3 (test 0.03 10*3/uL 0.00-0.06 code = 5527003668) LYMPH x10^3 (test code 2.03 10*3/uL 1.32-3.29 = 731-0) MONO x10^3 (test code 0.55 10*3/uL 0.33-0.92 = 742-7) EOS x10^3 (test code = 0.27 10*3/uL 0.03-0.39 711-2) BASO x10^3 (test code 0.04 10*3/uL 0.01-0.07 = 704-7) Lab Interpretation Abnormal (test code = 39891-0) [facility] AlliancePOCO GLUCOSE (AUTOMATED)2020-09-06 09:31:41 Test Item Value Reference Range Interpretation Comments POCT GLU (test code = 5566517761) 119 mg/dL 70-110 H Lab Interpretation (test code = Abnormal 81549-7) [facility] AllianceSEDIMENTATION [id number] 02:23:15 Test Item Value Reference Range Interpretation Comments ESR (test code = See_Comment H [Automated message] 7032666422) The system [employer] generated this result transmitted ref erence range: 0 - 20 m m/HR. The reference r chelsie was not used to interpret this result as normal/abnor mal. Lab Interpretation (test Abnormal code = 47301-1) [facility] AllianceTROPONIN [id number] 01:26:18 Test Item Value Reference Range Interpretation Comments TROPONIN I (test 0.004 ng/mL See_Comment [Automated code = 9815289728) message] The system which generated this result [...] ? Lab Interpretation Normal (test code = 77040-0) [facility] GLUCOSE (AUTOMATED)2020-09-05 21:59:05 Test Item Value Reference Range Interpretation Comments POCT GLU (test code = 0828462794) 119 mg/dL 70-110 H Lab Interpretation (test code = Abnormal 41723-7) [facility] GLUCOSE (AUTOMATED)2020-09-05 20:48:26 Test Item Value Reference Range Interpretation Comments POCT GLU (test code = 1980335639) 237 mg/dL 70-110 H Lab Interpretation (test code = Abnormal 47229-9) [facility] GLUCOSE (AUTOMATED)2020-09-05 20:48:26 Test Item Value Reference Range Interpretation Comments POCT GLU (test code = 4983017533) 208 mg/dL 70-110 H Lab Interpretation (test code = Abnormal 97926-3) [facility] AllianceLIPID PANEL (30630)(TOTAL CHOLESTEROL, TRIGLYCERIDES, HDL)2020-09-05 20:09:59 Test Item Value Reference Range Interpretation Comments CHOL (test code = 175 mg/dL 120-200 8744789707) HDL (test code = 29 mg/dL >50 L 1814287480) HDLC RATIO (test code = See_Comment H [Au tomated message] 7846611902) The system [employer] generated this result transmit anthony reference range : <=4.5. The refe rence range was not u sed to interpret th is result as normal/abnormal . TRIG (test code = 359 mg/dL 30-170 H 6021448031) LDL CHOL (test code = 74 mg/dL See_Comment [Auto mated message] 03755-8) The system [employer] generated this result transmit anthony reference range : <=160. The refe rence range was not u sed to interpret th is result as normal/abnormal . VLDL (test code = 72 mg/dL 5-60 H 8066024506) Lab Interpretation (test Abnormal code = 51965-0) [facility] Alliance[facility] B12, [id number] 19:54:18 Test Item Value Reference Range Interpretation Comments VIT B12 (test code = 589 pg/mL 240-930 9867190532) NISHA (test code = NISHA) Biotin has been reported to cause a positive bias, interpret results relative to patient's use of biotin. Lab Interpretation (test Normal code = 53932-4) [facility] AlliancePROCALCITONIN2021-04-10 16:28:13 Test Item Value Reference Range Interpretation Comments Procalcitonin (test 0.02 ng/mL <0.07 code = 8104610006) NISHA (test code = NISHA) INTERPRETATION OF [...] lung abscess/empyema. For further information please refer to:[email or web address] Lab Interpretation Normal (test code = 91763-9) [facility] AllianceGLYCOSYLATED HEMOGLOBIN (A1C)2020-09-05 14:17:09 Test Item Value Reference Range Interpretation Comments HGB A1C (test code = >14.0 4.0-6.0 H 4548-4) NISHA (test code = NISHA) %A1C (NGSP) Interpretation (ADA)4.8-5.6 ? ? Normal or (Non-Diabetic Range)5.7-6.4 ? ? Increased Risk (Pre-Diabetic)>6.5 ?Diabetes Indicated Lab Interpretation Abnormal (test code = 19489-0) [facility] AllianceTROPONIN [id number] 12:34:46 Test Item Value Reference Range Interpretation Comments TROPONIN I (test 0.006 ng/mL See_Comment [Automated code = 4386775476) message] The system which generated this result [...] ? Lab Interpretation Normal (test code = 62278-6) [facility] AllianceN-TERMINAL [id number] 12:31:45 Test Item Value Reference Range Interpretation Comments NT-proBNP (test code 465 pg/mL See_Comment H [Autom ated = 8993615718) message] The system which generated this result transmitted reference range : <=125. The reference range was not used to interpret this result as normal/abnormal . NISHA (test code = NISHA) Biotin has been reported to cause a negative bias, interpret results relative to patient's use of biotin. Lab Interpretation Abnormal (test code = 15415-0) [facility] AllianceMAGNESIUM2021-04-10 12:23:24 Test Item Value Reference Range Interpretation Comments MAGNESIUM (test code = 6218764018) 1.2 mg/dL 1.7-2.4 L Lab Interpretation (test code = Abnormal 62180-3) [facility]. METABOLIC PANEL (22612)2020-09-05 12:23:06 Test Item Value Reference Range Interpretation Comments NA (test code = 138 mmol/L 135-145 0172015145) K (test code = 3.0 mmol/L 3.5-5.0 L 9783099670) CL (test code = 102 mmol/L 98-108 0914795096) CO2 TOTAL (test code = 28 mmol/L 23-31 6323302151) AGAP (test code = 2-16 1252269323) BUN (test code = 11 mg/dL 7-23 0425384885) GLUCOSE (test code = 172 mg/dL 70-110 H 7342599613) CREATININE (test code = 0.60 mg/dL 0.50-1.04 9593307151) TOTAL BILI (test code = 0.5 mg/dL 0.1-1.9 8523911234) CALCIUM (test code = 8.0 mg/dL 8.6-10.6 L 1451833916) T PROTEIN (test code = 5.9 g/dL 6.3-8.2 L 0889786034) ALBUMIN (test code = 3.2 g/dL 3.5-5.0 L 3277636940) ALK PHOS (test code = 97 U/L 34-122 3280408177) ALTv (test code = 17 U/L 5-35 1742-6) AST(SGOT) (test code = 21 U/L 13-40 3952702808) eGFR (test code = mL/min/1.73m2 4902093204) NISHA (test code = NISHA) Association of [...] tests). Lab Interpretation Abnormal (test code = 85352-6) [facility] AllianceCREATINE [id number] 12:22:45 Test Item Value Reference Range Interpretation Comments CK (test code = 4148579862) 39 U/L 33-194 Lab Interpretation (test code = Normal 17903-4) [facility] AlliancePROTHROMBIN TIME / [id number] 11:59:05 Test Item Value Reference Range Interpretation Comments PROTIME PATIENT (test See_Comment [Auto mated message] code = 5964-2) The system [employer] generated this result transmitted ref erence range: 12.0 - 1 4.7 Seconds. The re ference range was not u sed to interpret this result as normal/abnor mal. INR (test code = 6301-6) Nor mal INR <1.1; Warfarin Therap eutic range 2.0 to 3. 0 or 2.5 to 3.5, dep ending upon the indica tions. Lab Interpretation (test Normal code = 01616-3) [facility] AllianceCT ABDOMEN PELVIS WO [id number] 11:36:381. 3-4 mm, bilateral nonobstructing renal stones [...] are seen.2. Otherwise, no acute finding.RL: [id number] [facility] WITH [id number] 11:29:17 Test Item Value Reference Range Interpretation Comments WBC (test code = See_Comment [Automated 7690-2) message] The sy stem which generated this result transmitted reference range : 4.30 - 11.10 10*3/?L. The reference range was not used to interpret this result as normal/abnormal . RBC (test code = See_Comment [Automated 519-8) message] The sy stem which generated this [...] (test code = 38.2 fL 39.0-49.9 L 50339-8) RDW-CV (test code = 12.4 % 12.0-15.5 788-0) PLT (test code = See_Comment [Automated 777-3) message] The sy stem which generated this result transmitted reference range : 166 - 358 10*3/ ?L. The reference r chelsie was not used to interpret this result as normal/abnormal . MPV (test code = 10.9 fL 9.5-12.9 97472-3) NRBC/100 WBC (test See_Comment [Automat ed code = 4141255062) message] The system which generated this result transmitted reference range : 0.0 - 10.0 /100 WBCs. The refer ence range was not u sed to interpret th is result as normal/abnormal . NRBC x10^3 (test code <0.01 See_Comment [Auto mated = 8477949360) message] The s ystem which generated this result transmitted reference range : 10*3/?L. The reference range was not used to interpret this result as normal/abnormal . GRAN MAT (NEUT) % 61.7 % (test code = 770-8) IMM GRAN % (test code 0.40 % = 6057321200) LYMPH % (test code = 26.7 % 736-9) MONO % (test code = 7.7 % 5905-5) EOS % (test code = 3.0 % 713-8) BASO % (test code = 0.5 % 706-2) GRAN MAT x10^3(ANC) 5.11 10*3/uL 1.88-7.09 (test code = 9665402604) IMM GRAN x10^3 (test 0.03 10*3/uL 0.00-0.06 code = 2155624215) LYMPH x10^3 (test code 2.21 10*3/uL 1.32-3.29 = 731-0) MONO x10^3 (test code 0.64 10*3/uL 0.33-0.92 = 742-7) EOS x10^3 (test code = 0.25 10*3/uL 0.03-0.39 711-2) BASO x10^3 (test code 0.04 10*3/uL 0.01-0.07 = 704-7) Lab Interpretation Abnormal (test code = 15372-9) [facility] AllianceTHYROID STIMULATING [id number] 10:36:10 Test Item Value Reference Range Interpretation Comments TSH (test code = See_Comment [Automated message] 0408626290) The system whic h generated this result transmitted ref erence range: 0.45 - 4 .70 mIU/L. The refe rence range was not u sed to interpret this result as normal/abnor mal. Lab Interpretation (test Normal code = 88329-1) [facility] AllianceMAGNESIUM2021-04-10 10:04:49 Test Item Value Reference Range Interpretation Comments MAGNESIUM (test code = 0897867319) 1.3 mg/dL 1.7-2.4 L Lab Interpretation (test code = Abnormal 96121-2) [facility] AlliancePHOSPHORUS2021-04-10 10:04:49 Test Item Value Reference Range Interpretation Comments PHOSPHORUS (test code = 2109048732) 3.7 mg/dL 2.5-5.0 Lab Interpretation (test code = Normal 90273-3) [facility] AllianceCOVID-19 (ID NOW RAPID TESTING)2020-09-05 06:06:14 Test Item Value Reference Range Interpretation Comments SARS-CoV-2 Rapid ID NOW Not Detected Not Detected (test code = 82264-9) NISHA (test code = NISHA) ID NOW COVID-19 Assay is an isothermal nucleic acid amplification test intended for the qualitative detection of nucleic acid from SARS-CoV-2 viral RNA in nasopharyngeal ([employer] CAB) specimens. It is used under Emergency Use [...] indicated. Lab Interpretation Normal (test code = 64747-5) [facility] AlliancePOCT GLUCOSE (AUTOMATED)2020-09-05 04:27:52 Test Item Value Reference Range Interpretation Comments POCT GLU (test code = 9359962940) 463 mg/dL 70-110 HH Lab Interpretation (test code = Abnormal 29380-6) [facility] AllianceTROPONIN [id number] 03:44:02 Test Item Value Reference Range Interpretation Comments TROPONIN I (test 0.004 ng/mL See_Comment [Automated code = 9289313721) message] The system which generated this result [...] ? Lab Interpretation Normal (test code = 78963-5) [facility] AllianceN-TERMINAL [id number] 03:40:44 Test Item Value Reference Range Interpretation Comments NT-proBNP (test code 351 pg/mL See_Comment H [Autom ated = 5234124103) message] The system which generated this result transmitted reference range : <=125. The reference range was not used to interpret this result as normal/abnormal . NISHA (test code = NISHA) Biotin has been reported to cause a negative bias, interpret results relative to patient's use of biotin. Lab Interpretation Abnormal (test code = 77595-6) [facility] AllianceURINALYSIS2021-04-10 03:36:15 Test Item Value Reference Range Interpretation Comments APPEARANCE (test code = Hazy Clear A 9990846130) COLOR (test code = Yellow Yellow 0979909394) PH (test code = 4.8-8.0 9198652051) SP GRAVITY (test code = 1.003-1.030 7586041638) GLU U QUAL (test code = 500 mg/dL Normal A 7817370410) BLOOD (test code = Negative Negative 1192438259) KETONES (test code = Negative Negative 7150814658) PROTEIN (test code = Negative Negative 2887-8) UROBILIN (test code = Normal Normal 1770133509) BILIRUBIN (test code = Negative Negative 0782156011) NITRITE (test code = Positive Negative A 1567665175) LEUK JOSEFA (test code = 75/uL Negative A 4379733067) RBC/HPF (test code = See_Comment [Autom ated message] 2326960589) The system [employer] generated this result transmit anthony reference range : 0 - 3 HPF. The refe rence range was not u sed to interpret th is result as normal/abnormal . WBC/HPF (test code = See_Comment H [Autom ated message] 1875456999) The system [employer] generated this result transmit anthony reference range : 0 - 5 HPF. The refe rence range was not u sed to interpret th is result as normal/abnormal . BACTERIA (test code = Many Negative A 5802683959) MUCOUS (test code = Slight Negative LPF A 1951933236) SQ EPITH (test code = HPF 4796152599) YEAST BUD (test code = See_Comment H [Aut omated message] 5117946263) The system [employer] generated this result transmit anthony reference range : <=1 HPF. The refere nce range was not u sed to interpret th is result as normal/abnormal . Lab Interpretation (test Abnormal code = 80239-8) [facility] AllianceLIPASE2021-04-10 03:31:20 Test Item Value Reference Range Interpretation Comments LIPASE (test code = 7006996050) 121 U/L 0-220 Lab Interpretation (test code = Normal 97454-5) [facility] AllianceCOMP. METABOLIC PANEL (50598)2020-09-05 03:14:37 Test Item Value Reference Range Interpretation Comments NA (test code = 130 mmol/L 135-145 L 2391931839) K (test code = 3.3 mmol/L 3.5-5.0 L 4734626097) CL (test code = 90 mmol/L 98-108 L 5482280508) CO2 TOTAL (test code = 29 mmol/L 23-31 9652416468) AGAP (test code = 2-16 4134664808) BUN (test code = 13 mg/dL 7-23 1239027465) GLUCOSE (test code = 605 mg/dL 70-110 HH 3479317495) CREATININE (test code = 0.68 mg/dL 0.50-1.04 4812271997) TOTAL BILI (test code = 0.7 mg/dL 0.1-1.7 4878032676) CALCIUM (test code = 8.6 mg/dL 8.6-10.6 4173197536) T PROTEIN (test code = 7.3 g/dL 6.3-8.2 4343200912) ALBUMIN (test code = 4.3 g/dL 3.5-5.0 1356236137) ALK PHOS (test code = 138 U/L 34-122 H 5886846269) ALTv (test code = 23 U/L 5-35 2-6) AST(SGOT) (test code = 24 U/L 13-40 1374142468) eGFR (test code = mL/min/1.73m2 3344269270) NISHA (test code = NISHA) Association of [...] tests). Lab Interpretation Abnormal (test code = 39567-8) [facility] WITH [id number] 03:03:56 Test Item Value Reference Range Interpretation [...] RDW-SD (test code = 40.1 fL 39.0-49.9 22612-7) RDW-CV (test code = 12.7 % 12.0-15.5 788-0) PLT (test code = See_Comment H [Automated 777-3) message] The sy stem which generated this result transmitted reference range : 166 - 358 10*3/ ?L. The reference r chelsie was not used to interpret this result as normal/abnormal . MPV (test code = 11.0 fL 9.5-12.9 47137-7) NRBC/100 WBC (test See_Comment [Automat ed code = 0324746907) message] The system which generated this result transmitted reference range : 0.0 - 10.0 /100 WBCs. The refer ence range was not u sed to interpret th is result as normal/abnormal . NRBC x10^3 (test code <0.01 See_Comment [Auto mated = 4216362365) message] The s ystem which generated this result transmitted reference range : 10*3/?L. The reference range was not used to interpret this result as normal/abnormal . GRAN MAT (NEUT) % 66.6 % (test code = 770-8) IMM GRAN % (test code 0.40 % = 5121408237) LYMPH % (test code = 23.7 % 736-9) MONO % (test code = 6.1 % 5905-5) EOS % (test code = 2.7 % 713-8) BASO % (test code = 0.5 % 706-2) GRAN MAT x10^3(ANC) 5.00 10*3/uL 1.88-7.09 (test code = 1982519076) IMM GRAN x10^3 (test 0.03 10*3/uL 0.00-0.06 code = 7420909127) LYMPH x10^3 (test code 1.78 10*3/uL 1.32-3.29 = 731-0) MONO x10^3 (test code 0.46 10*3/uL 0.33-0.92 = 742-7) EOS x10^3 (test code = 0.20 10*3/uL 0.03-0.39 711-2) BASO x10^3 (test code 0.04 10*3/uL 0.01-0.07 = 704-7) Lab Interpretation Abnormal (test code = 18423-3) [facility] VENOUS BLOOD [id number] 02:38:19 Test Item Value Reference Range Interpretation Comments PH (test code = 7.32-7.42 4728342497) PCO2 JUSTIN (test code = See_Comment [Auto mated message] 6360823944) The system [employer] generated this result transmitted ref erence range: 41 - 51 mmHg. The reference r chelsie was not used to interpret this result as normal/abnor mal. PO2 JUSTIN (test code = See_Comment [Autom ated message] 0191307962) The system [employer] generated this result transmitted ref erence range: 25 - 40 mmHg. The reference r chelsie was not used to interpret this result as normal/abnor mal. HCO3 JUSTIN (test code = See_Comment H [Auto mated message] 6395474310) The system [employer] generated this result transmitted ref erence range: 24 - 28 mEq/L. The reference r chelsie was not used to interpret this result as normal/abnor mal. AC VBE(BEAKER) (test mEq/L code = 5278727068) Lab Interpretation (test Abnormal code = 83100-1) [facility] GLUCOSE (AUTOMATED)2020-09-05 01:59:51 Test Item Value Reference Range Interpretation Comments POCT GLU (test code = 8282767014) 557 mg/dL 70-110 HH Lab Interpretation (test code = Abnormal 80691-3) [facility] HEMOGLOBIN A1C [id number] 21:16:00 Test Item Value Reference Range Interpretation Comments POCT HBA1C (test code = 4548-4) >14 4-6 A Lab Interpretation (test code = Abnormal 80999-6) [facility] HEMOGLOBIN A1C [id number] 21:16:00 Test Item Value Reference Range Interpretation Comments POCT HBA1C (test code = 4548-4) >14 4-6 A Lab Interpretation (test code = Abnormal 37882-0) [facility] AllianceXR LUMBAR SPINE 4 [id number] 22:59:21XR LUMBAR SPINE 4 VW HISTORY: Female [...] left kidney probablyrepresents a small renal calculus.[facility] AllianceXR HIPS 2 VW [id number] 22:34:44 Impression: 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 RL: ?[id number] Clinical indication: Severe acute on chronic hip [...] unremarkable. No radiopaque foreign bodies are identified. [facility], Radiant ResultsInft User - 05/08/2020 4:35 PM CSTClinical indication: Severe acute on chronic hip pain status postfall 2days ago.Ordering Physician: RASHAD COSTAFindings: AP and frog-leg lateral views of theleft hip are provided. Thereis diffuse narrowing of the left hip joint space with large marginalosteophytes noted.The visualized osseous structures are in normal anatomic alignment withoutevidence acute fracture, subluxation or dislocation. The subcutaneoustissue are unremarkable. No radiopaque foreign bodies are identified. IMPRESSIONImpression: 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RL: [id number] [facility]GC [facility] CHLAMYDIA AMPLIFIED [id number] 20:07:00 Test Item Value Reference Range Interpretation Comments C. trachomatis Nucleic Negative Negative Acid (test code = 92700-2) N. gonorrhoeae Nucleic Negative Negative Acid (test code = 76306-0) NISHA (test code = NISHA) Reliable results [...] clinician. Lab Interpretation Normal (test code = 59810-4) [facility] AllianceTRICHOMONAS AMPLIFIED [id number] 20:02:00 Test Item Value Reference Range Interpretation Comments Trichomonas Nucleic Negative Negative Acid (test code = 20535-3) NISHA (test code = NISHA) Reliable results [...] clinician. Lab Interpretation Normal (test code = 72195-3) [facility] AllianceGALV ONLY - VAGINAL PATHOGENS BY NUCLEIC ACID [id number] 18:40:00 Test Item Value Reference Range Interpretation Comments Trichomonas vaginalis Negative Negative (test code = 2668368454) Nasrin species (test Positive Negative A code = 7201146840) Nasrin glabrata (test Positive Negative A code = 43370-0) Bacterial Vaginosis Positive Negative A (test code = 25545-8) NISHA (test code = NISHA) Reliable results [...] clinician. Lab Interpretation Abnormal (test code = 95540-5) [facility] URINALYSIS W/O SPECIFIC [id number] 19:50:00 Test Item Value Reference Range Interpretation [...] code = 3257) neg Negative - Negative [facility] URINALYSIS W/O SPECIFIC [id number] 19:50:00 Test Item Value Reference Range Interpretation [...] code = 3257) neg Negative - Negative [facility] URINALYSIS W/O SPECIFIC [id number] 19:50:00 Test Item Value Reference Range Interpretation [...] code = 3257) neg Negative - Negative [facility] HEMOGLOBIN A1C [id number] 22:01:00 Test Item Value Reference Range Interpretation Comments POCT HBA1C (test code = 4548-4) >14.0 4-6 [facility] HEMOGLOBIN A1C [id number] 22:01:00 Test Item Value Reference Range Interpretation Comments POCT HBA1C (test code = 4548-4) >14.0 4-6 [facility] AllianceBI SCREENING MAMMOGRAM [id number] 22:41:31Examination:BI SCREENING MAMMOGRAM BILATERAL History:Patient is 49 [...] the study and agree with the resident's/fellow's report.[facility] GLUCOSE (AUTOMATED)2019-08-16 13:03:00 Test Item Value Reference Range Interpretation Comments POCT GLU (test code = 5359651050) 228 mg/dL 70-110 H Lab Interpretation (test code = Abnormal 06275-9) [facility] AllianceMAGNESIUM2020-03-20 10:40:00 Test Item Value Reference Range Interpretation Comments MAGNESIUM (test code = 3528150595) 4.7 mg/dL 1.7-2.4 H Lab Interpretation (test code = Abnormal 75622-6) [facility] AllianceBASIC METABOLIC PANEL (NA, K, CL, CO2, GLUCOSE, BUN, CREATININE, CA)2019-08-16 10:36:00 Test Item Value Reference Range Interpretation Comments NA (test code = 135 mmol/L 135-145 9169154633) K (test code = 3.9 mmol/L 3.5-5 9128734775) CL (test code = 107 mmol/L 98-108 6638012797) CO2 TOTAL (test code = 22 mmol/L 23-31 L 5459892425) AGAP (test code = 2-16 0801374595) BUN (test code = 19 mg/dL 7-23 4509723147) GLUCOSE (test code = 236 mg/dL 70-110 H 6453736195) CREATININE (test code = 0.91 mg/dL 0.5-1.04 2868667130) CALCIUM (test code = 6.6 mg/dL 8.6-10.6 L 2080490793) eGFR Calculation mL/min/1.73m2 (Non-) (test code = 3895920090) eGFR Calculation mL/min/1.73m2 () (test code = 0508633868) NISHA (test code = NISHA) Association of [...] tests). Lab Interpretation Abnormal (test code = 85380-0) [facility] WITH [id number] 10:13:00 Test Item Value Reference Range Interpretation [...] RDW-SD (test code = 41.6 fL 39-49.9 25508-2) RDW-CV (test code = 12.8 % 12-15.5 788-0) PLT (test code = See_Comment [Automated 777-3) message] The sy stem which generated this result transmitted reference range : 166 - 358 10*3/ ?L. The reference r chelsie was not used to interpret this result as normal/abnormal . MPV (test code = 10.6 fL 9.5-12.9 58423-4) NRBC/100 WBC (test See_Comment [Automat ed code = 1698247372) message] The system which generated this result transmitted reference range : 0.0 - 10.0 /100 WBCs. The refer ence range was not u sed to interpret th is result as normal/abnormal . NRBC x10^3 (test code <0.01 See_Comment [Auto mated = 9509175918) message] The s ystem which generated this result transmitted reference range : 10*3/?L. The reference range was not used to interpret this result as normal/abnormal . GRAN MAT (NEUT) % 77.9 % (test code = 770-8) IMM GRAN % (test code 0.80 % = 3816859330) LYMPH % (test code = 13.8 % 736-9) MONO % (test code = 6.8 % 5905-5) EOS % (test code = 0.3 % 713-8) BASO % (test code = 0.4 % 706-2) GRAN MAT x10^3(ANC) 8.66 10*3/uL 1.88-7.09 H (test code = 7324253719) IMM GRAN x10^3 (test 0.09 10*3/uL 0-0.06 H code = 5083981700) LYMPH x10^3 (test code 1.54 10*3/uL 1.32-3.29 = 731-0) MONO x10^3 (test code 0.76 10*3/uL 0.33-0.92 = 742-7) EOS x10^3 (test code = 0.03 10*3/uL 0.03-0.39 711-2) BASO x10^3 (test code 0.04 10*3/uL 0.01-0.07 = 704-7) Lab Interpretation Abnormal (test code = 22569-2) [facility] GLUCOSE (AUTOMATED)2019-08-16 09:54:00 Test Item Value Reference Range Interpretation Comments POCT GLU (test code = 2966771713) 218 mg/dL 70-110 H Lab Interpretation (test code = Abnormal 24129-8) [facility] GLUCOSE (AUTOMATED)2019-08-16 07:12:00 Test Item Value Reference Range Interpretation Comments POCT GLU (test code = 3467434348) 355 mg/dL 70-110 H Lab Interpretation (test code = Abnormal 68026-6) [facility] GLUCOSE (AUTOMATED)2019-08-16 05:06:00 Test Item Value Reference Range Interpretation Comments POCT GLU (test code = 6553799258) 457 mg/dL 70-110 HH Lab Interpretation (test code = Abnormal 07033-3) [facility] HEAD WO [id number] 00:55:12 No acute intracranial hemorrhage or mass [...] are essentially clear. [facility], Radiant Results Inft 08/15/2019 7:56PM CDTCT HEAD WO CONTRASTHISTORY: Neuro [...] clear. IMPRESSIONNo acute intracranial hemorrhage or mass effect.[facility] GLUCOSE (AUTOMATED)2019-08-15 22:15:00 Test Item Value Reference Range Interpretation Comments POCT GLU (test code = 8242189499) 304 mg/dL 70-110 H Lab Interpretation (test code = Abnormal 20712-8) [facility] AllianceaPTT2020-03-19 21:04:00 Test Item Value Reference Range Interpretation Comments APTT Patient (test code See_Comment L [Au tomated message] = 3173-2) The system [employer] generated this result transmitted ref erence range: 26 - 36 Seconds. The reference range was not used to int erpret this result as normal/abnormal . Lab Interpretation (test Abnormal code = 95236-4) [facility] GLUCOSE (AUTOMATED)2019-08-15 20:41:00 Test Item Value Reference Range Interpretation Comments POCT GLU (test code = 0826727712) 274 mg/dL 70-110 H Lab Interpretation (test code = Abnormal 85463-1) [facility] GLUCOSE (AUTOMATED)2019-08-15 17:10:00 Test Item Value Reference Range Interpretation Comments POCT GLU (test code = 9390925214) 308 mg/dL 70-110 H Lab Interpretation (test code = Abnormal 22940-5) [facility] ACT LOW [id number] 15:44:00 Test Item Value Reference Range Interpretation Comments ACTLR (test code = See_Comment H [Automat ed message] 8361246853) The system [employer] generated this result transmitted ref erence range: 89 - 169 Seconds. The reference range was not used to int erpret this result as normal/abnormal . Lab Interpretation (test Abnormal code = 96335-3) [facility] ACT LOW [id number] 15:22:00 Test Item Value Reference Range Interpretation Comments ACTLR (test code = See_Comment H [Automat ed message] [id number]) The system [employer] generated this result transmitted ref erence range: 89 - 169 Seconds. The reference range was not used to int erpret this result as normal/abnormal . Lab Interpretation (test Abnormal code = 26322-9) [facility] ACT LOW [id number] 14:44:00 Test Item Value Reference Range Interpretation Comments ACTLR (test code = See_Comment H [Automat ed message] 5769569559) The system [employer] generated this result transmitted ref erence range: 89 - 169 Seconds. The reference range was not used to int erpret this result as normal/abnormal . Lab Interpretation (test Abnormal code = 58882-3) [facility] ACT LOW [id number] 14:26:00 Test Item Value Reference Range Interpretation Comments ACTLR (test code = See_Comment H [Automat ed message] 2361221790) The system [employer] generated this result transmitted ref erence range: 89 - 169 Seconds. The reference range was not used to int erpret this result as normal/abnormal . Lab Interpretation (test Abnormal code = 54987-1) [facility] METABOLIC PANEL (NA, K, CL, CO2, GLUCOSE, BUN, CREATININE, CA)2019-08-15 11:06:00 Test Item Value Reference Range Interpretation Comments NA (test code = 134 mmol/L 135-145 L 0199671203) K (test code = 4.3 mmol/L 3.5-5 8592324706) CL (test code = 105 mmol/L 98-108 3969120850) CO2 TOTAL (test code = 22 mmol/L 23-31 L 8957480944) AGAP (test code = 2-16 4560318238) BUN (test code = 21 mg/dL 7-23 7968390562) GLUCOSE (test code = 410 mg/dL 70-110 H 3294397234) CREATININE (test code = 0.92 mg/dL 0.5-1.04 8908847668) CALCIUM (test code = 7.5 mg/dL 8.6-10.6 L 0000031659) eGFR Calculation mL/min/1.73m2 (Non-) (test code = 4172925024) eGFR Calculation mL/min/1.73m2 () (test code = 3322811989) NISHA (test code = NISHA) Association of [...] tests). Lab Interpretation Abnormal (test code = 00017-3) [facility] 11:06:00 Test Item Value Reference Range Interpretation Comments MAGNESIUM (test code = 0092199956) 1.6 mg/dL 1.7-2.4 L Lab Interpretation (test code = Abnormal 73666-8) [facility] (for use with Heparin Practice Guideline). Note: Draw and Send all Lab STAT.2019-08-15 10:47:00 Test Item Value Reference Range Interpretation Comments APTT Patient (test code See_Comment H [Au tomated message] = 3173-2) The system [employer] h generated this result transmitted ref erence range: 26 - 36 Seconds. The reference range was not used to int erpret this result as normal/abnormal . Lab Interpretation (test Abnormal code = 72978-3) [facility] Alliance[facility] WITH [id number] 10:46:00 Test Item Value Reference Range Interpretation Comments WBC (test code = See_Comment [Automated 2590-2) message] The sy stem which generated this result transmitted reference range : 4.30 - 11.10 10*3/?L. The reference range was not used to interpret this result as normal/abnormal . RBC (test code = See_Comment L [Automated 559-8) message] The sy stem which [...] RDW-SD (test code = 39.1 fL 39-49.9 49988-0) RDW-CV (test code = 12.4 % 12-15.5 788-0) PLT (test code = See_Comment [Automated 777-3) message] The sy stem which generated this result transmitted reference range : 166 - 358 10*3/ ?L. The reference r chelsie was not used to interpret this result as normal/abnormal . MPV (test code = 10.9 fL 9.5-12.9 94665-2) NRBC/100 WBC (test See_Comment [Automat ed code = 4263807890) message] The system which generated this result transmitted reference range : 0.0 - 10.0 /100 WBCs. The refer ence range was not u sed to interpret th is result as normal/abnormal . NRBC x10^3 (test code <0.01 See_Comment [Auto mated = 4674831480) message] The s ystem which generated this result transmitted reference range : 10*3/?L. The reference range was not used to interpret this result as normal/abnormal . GRAN MAT (NEUT) % 80.6 % (test code = 770-8) IMM GRAN % (test code 0.50 % = 3036201199) LYMPH % (test code = 12.5 % 736-9) MONO % (test code = 5.8 % 5905-5) EOS % (test code = 0.4 % 713-8) BASO % (test code = 0.2 % 706-2) GRAN MAT x10^3(ANC) 8.94 10*3/uL 1.88-7.09 H (test code = 6527208195) IMM GRAN x10^3 (test 0.06 10*3/uL 0-0.06 code = 6462706727) LYMPH x10^3 (test code 1.39 10*3/uL 1.32-3.29 = 731-0) MONO x10^3 (test code 0.64 10*3/uL 0.33-0.92 = 742-7) EOS x10^3 (test code = 0.04 10*3/uL 0.03-0.39 711-2) BASO x10^3 (test code <0.03 0.01-0.07 = 704-7) Lab Interpretation Abnormal (test code = 19303-0) [facility] GLUCOSE (AUTOMATED)2019-08-15 09:48:00 Test Item Value Reference Range Interpretation Comments POCT GLU (test code = 3966451976) 319 mg/dL 70-110 H Lab Interpretation (test code = Abnormal 65738-6) [facility] GLUCOSE (AUTOMATED)2019-08-15 06:35:00 Test Item Value Reference Range Interpretation Comments POCT GLU (test code = 7282913010) 479 mg/dL 70-110 HH Lab Interpretation (test code = Abnormal 87452-3) [facility] GLUCOSE (AUTOMATED)2019-08-15 03:10:00 Test Item Value Reference Range Interpretation Comments POCT GLU (test code = 4333770481) 450 mg/dL 70-110 HH Lab Interpretation (test code = Abnormal 46535-4) [facility] (for use with Heparin Practice Guideline). Note: Draw and Send all Lab STAT.2019-08-15 02:31:00 Test Item Value Reference Range Interpretation Comments APTT Patient (test code See_Comment HH [Au tomated message] = 3173-2) The system [employer] generated this result transmitted ref erence range: 26 - 36 Seconds. The reference range was not used to int erpret this result as normal/abnormal . Lab Interpretation (test Abnormal code = 50316-3) [facility] METABOLIC PANEL (NA, K, CL, CO2, GLUCOSE, BUN, CREATININE, CA)2019-08-15 02:30:00 Test Item Value Reference Range Interpretation Comments NA (test code = 131 mmol/L 135-145 L 5674010672) K (test code = 4.6 mmol/L 3.5-5 4112408060) CL (test code = 102 mmol/L 98-108 4324657046) CO2 TOTAL (test code = 21 mmol/L 23-31 L 8519734303) AGAP (test code = 2-16 1217823709) BUN (test code = 21 mg/dL 7-23 4674774995) GLUCOSE (test code = 479 mg/dL 70-110 HH 7640360968) CREATININE (test code = 1.08 mg/dL 0.5-1.04 H 6059543590) CALCIUM (test code = 7.3 mg/dL 8.6-10.6 L 0671003880) eGFR Calculation mL/min/1.73m2 (Non-) (test code = 2782146703) eGFR Calculation mL/min/1.73m2 () (test code = 1876551707) NISHA (test code = NISHA) Association of [...] tests). Lab Interpretation Abnormal (test code = 01787-1) [facility] GLUCOSE (AUTOMATED)2019-08-15 01:59:00 Test Item Value Reference Range Interpretation Comments POCT GLU (test code = 3132072526) 471 mg/dL 70-110 HH Lab Interpretation (test code = Abnormal 09727-2) [facility] GLUCOSE (AUTOMATED)2019-08-14 22:49:00 Test Item Value Reference Range Interpretation Comments POCT GLU (test code = 1570179457) 399 mg/dL 70-110 H Lab Interpretation (test code = Abnormal 53159-3) [facility] GLUCOSE (AUTOMATED)2019-08-14 20:45:00 Test Item Value Reference Range Interpretation Comments POCT GLU (test code = 1516383142) 473 mg/dL 70-110 HH Lab Interpretation (test code = Abnormal 06635-4) [facility] Alliance[facility]PT (for use with Heparin Practice Guideline). Note: Draw and Send all Lab STAT.2019-08-14 19:52:00 Test Item Value Reference Range Interpretation Comments APTT Patient (test code = See_Comment [ Automated message] 3173-2) The system [employer] generated this result transmitted ref erence range: 26 - 36 Seconds. The re ference range was not u sed to interpret this result as normal/abnor mal. Lab Interpretation (test Normal code = 51663-8) [facility] GLUCOSE (AUTOMATED)2019-08-14 17:24:00 Test Item Value Reference Range Interpretation Comments POCT GLU (test code = 421 mg/dL 70-110 H Notifi ed Provider 4753724270) Lab Interpretation (test Abnormal code = 69875-2) [facility] AllianceGALV ONLY - INFLUENZA A B RSV [id number] 16:21:00 Test Item Value Reference Range Interpretation Comments Influenza A virus by PCR (test code Negative Negative = 22541-8) Influenza B virus by PCR (test code Negative Negative = 06030-0) RSV by PCR (test code = 85600-7) Negative Negative Lab Interpretation (test code = Normal 57065-0) [facility] GLUCOSE (AUTOMATED)2019-08-14 14:00:00 Test Item Value Reference Range Interpretation Comments POCT GLU (test code = 9554665670) 314 mg/dL 70-110 H Lab Interpretation (test code = Abnormal 44216-2) [facility] METABOLIC PANEL (NA, K, CL, CO2, GLUCOSE, BUN, CREATININE, CA)2019-08-14 11:02:00 Test Item Value Reference Range Interpretation Comments NA (test code = 135 mmol/L 135-145 8852297186) K (test code = 4.4 mmol/L 3.5-5 8015523400) CL (test code = 106 mmol/L 98-108 1732738781) CO2 TOTAL (test code = 23 mmol/L 23-31 2626337480) AGAP (test code = 2-16 1116004428) BUN (test code = 15 mg/dL 7-23 2853699023) GLUCOSE (test code = 273 mg/dL 70-110 H 6329790900) CREATININE (test code = 1.04 mg/dL 0.5-1.04 2288222951) CALCIUM (test code = 7.5 mg/dL 8.6-10.6 L 4309376097) eGFR Calculation mL/min/1.73m2 (Non-) (test code = 9641982385) eGFR Calculation mL/min/1.73m2 () (test code = 3866995064) NISHA (test code = NISHA) Association of [...] tests). Lab Interpretation Abnormal (test code = 68221-6) [facility]UM2020-03-18 11:02:00 Test Item Value Reference Range Interpretation Comments MAGNESIUM (test code = 5845380901) 1.6 mg/dL 1.7-2.4 L Lab Interpretation (test code = Abnormal 60403-5) [facility] AllianceaPTT (for use with Heparin Practice Guideline). Note: Draw and Send all Lab STAT.2019-08-14 10:34:00 Test Item Value Reference Range Interpretation Comments APTT Patient (test code = See_Comment [ Automated message] 3173-2) The system whic h generated this result transmitted ref erence range: 26 - 36 Seconds. The re ference range was not u sed to interpret this result as normal/abnor mal. Lab Interpretation (test Normal code = 52403-7) [facility] WITH [id number] 10:28:00 Test Item Value Reference Range Interpretation Comments WBC (test code = See_Comment [Automated 6790-2) message] The sy stem which generated this [...] RDW-SD (test code = 41.0 fL 39-49.9 97116-1) RDW-CV (test code = 12.6 % 12-15.5 788-0) PLT (test code = See_Comment [Automated 777-3) message] The sy stem which generated this result transmitted reference range : 166 - 358 10*3/ ?L. The reference r chelsie was not used to interpret this result as normal/abnormal . MPV (test code = 10.3 fL 9.5-12.9 01567-1) NRBC/100 WBC (test See_Comment [Automat ed code = 8219427955) message] The system which generated this result transmitted reference range : 0.0 - 10.0 /100 WBCs. The refer ence range was not u sed to interpret th is result as normal/abnormal . NRBC x10^3 (test code <0.01 See_Comment [Auto mated = 7621529389) message] The s ystem which generated this result transmitted reference range : 10*3/?L. The reference range was not used to interpret this result as normal/abnormal . GRAN MAT (NEUT) % 63.5 % (test code = 770-8) IMM GRAN % (test code 0.30 % = 1585498351) LYMPH % (test code = 19.9 % 736-9) MONO % (test code = 6.3 % 5905-5) EOS % (test code = 9.7 % 713-8) BASO % (test code = 0.3 % 706-2) GRAN MAT x10^3(ANC) 6.48 10*3/uL 1.88-7.09 (test code = 5836281967) IMM GRAN x10^3 (test 0.03 10*3/uL 0-0.06 code = 6466929019) LYMPH x10^3 (test code 2.03 10*3/uL 1.32-3.29 = 731-0) MONO x10^3 (test code 0.64 10*3/uL 0.33-0.92 = 742-7) EOS x10^3 (test code = 0.99 10*3/uL 0.03-0.39 H 711-2) BASO x10^3 (test code 0.03 10*3/uL 0.01-0.07 = 704-7) Lab Interpretation Abnormal (test code = 88145-9) [facility] AlliancePOC[facility] GLU[facility]SE (AUTOMATED)2019-08-14 01:29:00 Test Item Value Reference Range Interpretation Comments POCT GLU (test code = 0019118677) 236 mg/dL 70-110 H Lab Interpretation (test code = Abnormal 80527-7) [facility] AllianceaPTT (for use with Heparin Practice Guideline). Note: Draw and Send all Lab STAT.2019-08-13 23:18:00 Test Item Value Reference Range Interpretation Comments APTT Patient (test code = See_Comment [ Automated message] 3173-2) The system [employer] generated this result transmitted ref erence range: 26 - 36 Seconds. The re ference range was not u sed to interpret this result as normal/abnor mal. Lab Interpretation (test Normal code = 36962-5) [facility] GLUCOSE (AUTOMATED)2019-08-13 23:09:00 Test Item Value Reference Range Interpretation Comments POCT GLU (test code = 2598665192) 305 mg/dL 70-110 H Lab Interpretation (test code = Abnormal 67489-5) [facility] GLUCOSE (AUTOMATED)2019-08-13 19:29:00 Test Item Value Reference Range Interpretation Comments POCT GLU (test code = 0818435353) 310 mg/dL 70-110 H Lab Interpretation (test code = Abnormal 15281-3) [facility] AllianceTROPONIN [id number] 14:04:00 Test Item Value Reference Range Interpretation Comments TROPONIN I (test 0.012 ng/mL See_Comment [Automated code = 6857736328) message] The system which generated this result [...] ? Lab Interpretation Normal (test code = 86438-7) [facility] GLUCOSE (AUTOMATED)2019-08-13 13:16:00 Test Item Value Reference Range Interpretation Comments POCT GLU (test code = 5737335436) 281 mg/dL 70-110 H Lab Interpretation (test code = Abnormal 52448-6) [facility] WITH [id number] 12:20:00 Test Item Value Reference Range Interpretation [...] RDW-SD (test code = 40.6 fL 39-49.9 10164-2) RDW-CV (test code = 12.7 % 12-15.5 788-0) PLT (test code = See_Comment [Automated 777-3) message] The sy stem which generated this result transmitted reference range : 166 - 358 10*3/ ?L. The reference r chelsie was not used to interpret this result as normal/abnormal . MPV (test code = 10.7 fL 9.5-12.9 17141-3) NRBC/100 WBC (test See_Comment [Automat ed code = 5828400297) message] The system which generated this result transmitted reference range : 0.0 - 10.0 /100 WBCs. The refer ence range was not u sed to interpret th is result as normal/abnormal . NRBC x10^3 (test code <0.01 See_Comment [Auto mated = 7235827098) message] The s ystem which generated this result transmitted reference range : 10*3/?L. The reference range was not used to interpret this result as normal/abnormal . GRAN MAT (NEUT) % 71.8 % (test code = 770-8) IMM GRAN % (test code 0.50 % = 8859548663) LYMPH % (test code = 12.3 % 736-9) MONO % (test code = 6.9 % 5905-5) EOS % (test code = 8.0 % 713-8) BASO % (test code = 0.5 % 706-2) GRAN MAT x10^3(ANC) 9.08 10*3/uL 1.88-7.09 H (test code = 5886015854) IMM GRAN x10^3 (test 0.06 10*3/uL 0-0.06 code = 2084157779) LYMPH x10^3 (test code 1.56 10*3/uL 1.32-3.29 = 731-0) MONO x10^3 (test code 0.87 10*3/uL 0.33-0.92 = 742-7) EOS x10^3 (test code = 1.01 10*3/uL 0.03-0.39 H 711-2) BASO x10^3 (test code 0.06 10*3/uL 0.01-0.07 = 704-7) Lab Interpretation Abnormal (test code = 43841-3) [facility]MAG[facility]IUM2020-03-17 09:19:00 Test Item Value Reference Range Interpretation Comments MAGNESIUM (test code = 3433679081) 1.5 mg/dL 1.7-2.4 L Lab Interpretation (test code = Abnormal 07519-4) [facility] AllianceXR CHEST 1 [id number] 08:54:25Impression: Moderate cardiomegaly without acute pulmonary process. Status post mediansternotomy. RL: 460 AFC: [id number] Indication: Chest pain Comparison: None Findings: Single [...] acute pulmonary process. Status post mediansternotomy.RL: 460AFC: [id number] signed by Gemini Martins MD, PhD at 08/13/2019 3:54 AMUnCook [facility]'s Medical CenterGlycosylated Hemoglobin (A1C)2019-08-13 07:12:00 Test Item Value Reference Range Interpretation Comments HGB A1C (test code = 4548-4) 10.8 % 4-6 H Lab Interpretation (test code = Abnormal 25380-8) [facility] AllianceN-TERMINAL [id number] 06:39:00 Test Item Value Reference Range Interpretation Comments NT-proBNP (test code 384 pg/mL See_Comment H [Autom ated = 2314729576) message] The system which generated this result transmitted reference range : <=125. The reference range was not used to interpret this result as normal/abnormal . NISHA (test code = NISHA) Biotin has been reported to cause a negative bias, interpret results relative to patient's use of biotin. Lab Interpretation Abnormal (test code = 36474-6) [facility] AllianceTROPONIN [id number] 06:39:00 Test Item Value Reference Range Interpretation Comments TROPONIN I (test 0.008 ng/mL See_Comment [Automated code = 2358059398) message] The system which generated this result [...] ? Lab Interpretation Normal (test code = 23020-4) [facility] AllianceBASI METABOLIC PANEL (NA, K, CL, CO2, GLUCOSE, BUN, CREATININE, CA)2019-08-13 06:35:00 Test Item Value Reference Range Interpretation Comments NA (test code = 134 mmol/L 135-145 L 3388332156) K (test code = 4.1 mmol/L 3.5-5 6179210839) CL (test code = 102 mmol/L 98-108 0211143355) CO2 TOTAL (test code = 22 mmol/L 23-31 L 7530023105) AGAP (test code = 2-16 6638162670) BUN (test code = 23 mg/dL 7-23 1904729563) GLUCOSE (test code = 324 mg/dL 70-110 H 2403846570) CREATININE (test code = 1.07 mg/dL 0.5-1.04 H 3306583879) CALCIUM (test code = 8.4 mg/dL 8.6-10.6 L 4120428333) eGFR Calculation mL/min/1.73m2 (Non-) (test code = 4405748738) eGFR Calculation mL/min/1.73m2 () (test code = 0459949827) NISHA (test code = NISHA) Association of [...] tests). Lab Interpretation Abnormal (test code = 52942-7) [facility] AllianceaPTT2020-03-17 06:07:00 Test Item Value Reference Range Interpretation Comments APTT Patient (test code = See_Comment [ Automated message] 3173-2) The system [employer] generated this result transmitted ref erence range: 26 - 36 Seconds. The re ference range was not u sed to interpret this result as normal/abnor mal. Lab Interpretation (test Normal code = 57801-5) [facility] AllianceProthrombin Time / [id number] 06:07:00 Test Item Value Reference Range Interpretation Comments PROTIME PATIENT (test See_Comment [Auto mated message] code = 5964-2) The system [employer] generated this result transmitted ref erence range: 10.1 - 1 2.6 Seconds. The re ference range was not u sed to interpret this result as normal/abnor mal. INR (test code = 6301-6) Nor mal INR <1.1; Warfarin Therap eutic range 2.0 to 3. 0 or 2.5 to 3.5, dep ending upon the indica tions. Lab Interpretation (test Normal code = 29844-9) [facility]"
[2021-05-15 09:06] LABS: Urine Blood Trace-intact (Negative); Urine Glucose 3+ (Negative); Urine Protein Negative (Negative); Urine Specific Gravity <=1.005 (1.005-1.030)
[2021-05-15 09:41] LABS: Urine Bacteria >50 /HPF (<20); Urine Yeast PRESENT (NONE SEEN); Urine Yeast with Hyphae PRESENT
[2021-05-15 10:02] LABS: Absolute Lymphocytes (CBC) 2.4 K/uL (0.7-4.9); Basophils % 0.9 % (0-1.3); Hematocrit 48.4 % (36.0-45.0); Lymphocytes % 29.9 % (15.3-44.8); MPV 8.6 fL (7.6-11.3); RBC Red Blood Cell Count 5.33 M/uL (3.86-4.86)
[2021-05-15 10:16] LABS: Potassium 3.9 mmol/L (3.5-5.1)
--- NOTE | 2021-05-15 10:21 | EDPHYS ---
Physician Documentation [facility] Name: Karen Shah Age: 50 yrs Sex: Female : 1970 Arrival Date: 05/15/2021 Time: 05:17 Bed Waiting Private MD: ED Physician Leopoldo Nixon HPI: 05/15 09:09 This 50 yrs old Female presents to ER via Wheelchair with complaints of unable rn to void. 09:10 The patient presents with urinary symptoms, dysuria, urinary retention. Onset: The rn symptoms/episode began/occurred 2 day(s) ago. Modifying factors: The symptoms are alleviated by nothing, the symptoms are aggravated by urinating. Associated signs and symptoms: Pertinent positives: dysuria, Pertinent negatives: fever, hematuria. Severity of symptoms: At their worst the symptoms were moderate, in the emergency department the symptoms are unchanged. The patient has not experienced similar symptoms in the past. The patient has not recently seen a physician. Patient reports not able to urinate since yesterday at 1 PM. Reports dribbles but is more of a pain in burning problem than an actual not being able to urinate problem. Denies trauma. Denies hematuria. Reports feels like he has a UTI. Glucose in the 200s. No fever.. 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 bb Historical: - Allergies: 05:44 Adhesives; bb 05:44 Toradol; bb 05:44 tramadol; bb - Home Meds: 05:44 aspirin 81 mg Oral tab [Active]; atorvastatin Oral [Active]; clopidogrel Oral [Active]; bb duloxetine Oral [Active]; escitalopram oxalate Oral [Active]; Furosemide Oral [Active]; gabapentin Oral [Active]; Humulin 70/30 U-100 Insulin 100 unit/mL (70-30) Sub-Q crtg [Active]; Isosorbide Mononitrate Oral [Active]; Metformin Oral [Active]; Nitroglycerin Topical [Active]; - PMHx: 05:44 angina pectoris; CAD; Cerebrovascular accident; CVA; Diabetes - IDDM; High Cholesterol; bb Hypertension; Myocardial infarction; Right AKA; Seizures; - PSHx: 05:44 CABG x 2; section; bb - Immunization history:: Adult Immunizations up to date, Client reports receiving the 2nd dose of the Covid vaccine, Pfizer. - Social history:: Smoking status: Patient reports the use of cigarette tobacco products. - Family history:: not pertinent. - Hospitalizations: : No recent hospitalization is reported. ROS: 09:10 Constitutional: Negative for fever, chills, and weight loss, Eyes: Negative for injury, rn pain, redness, and discharge, Neck: Negative for injury, pain, and swelling, Cardiovascular: Negative for chest pain, palpitations, and edema, Respiratory: Negative for shortness of breath, cough, wheezing, and pleuritic chest pain, Abdomen/GI: Negative for abdominal pain, nausea, vomiting, diarrhea, and constipation, Back: Negative for injury and pain, : + dysuria and decreased urination MS/Extremity: Negative for injury and deformity, Skin: Negative for injury, rash, and discoloration, Neuro: Negative for headache, weakness, numbness, tingling, and seizure. Exam: 09:10 Constitutional: This is a well developed, well nourished patient who is awake, alert, rn and in no acute distress. Head/Face: Normocephalic, atraumatic. Eyes: Periorbital areas with no swelling, redness, or edema. Cardiovascular: Regular rate and rhythm. No pulse deficits. Respiratory: No increased work of breathing, no retractions or nasal flaring. Abdomen/GI: Soft, non-tender Skin: Warm, dry MS/ Extremity: Pulses equal, no cyanosis. Neuro: Awake and alert, GCS 15 Vital Signs: 05:41 BP 143 / 98; Pulse 99; Resp 16 S; Temp 97.5(O); Pulse Ox 99% on R/A; Weight 64.41 kg bb (R); Height 5 ft. 4 in. (162.56 cm) (R); Pain 10/; 05:41 Body Mass Index 24.37 (64.41 kg, 162.56 cm) bb MDM: 09:26 ED course: Patient able to void in lobby bathroom, states "I could not hold it in rn anymore ". Urine sent.. 10:19 Differential diagnosis: urinary tract infection, Hyperglycemia, urinary retention. Data rn reviewed: vital signs, nurses notes, lab test result(s), and as a result, I will discharge patient. Counseling: I had a detailed discussion with the patient and/or guardian regarding: the historical points, exam findings, and any diagnostic results supporting the discharge/admit diagnosis, lab results, the need for outpatient follow up, to return to the emergency department if symptoms worsen or persist or if there are any questions or concerns that arise at home. Response to treatment: the patient's symptoms have markedly improved after treatment, and as a result, I will discharge patient. ED course: No acidosis, no anion gap, positive UTI and hyperglycemia. Will DC home with antibiotics and return precautions.. 10:21 Patient medically screened. rn 05/15 06:22 Order name: Urine Microscopic Only 05/15 06:23 Order name: Urine Microscopic Only; Complete Time: 10:14 EDMD 05/15 08:48 Order name: CBC with Diff; Complete Time: 10:14 rn 05/15 08:48 Order name: Basic Metabolic Panel; Complete Time: 10:19 rn 05/15 09:06 Order name: Urine Dipstick-Ancillary; Complete Time: 09:26 EDMD 05/15 09:43 Order name: Urine Culture [facility] 05/15 06:22 Order name: Urine Dipstick-Ancillary (obtain specimen); Complete Time: 09:44 kb 05/15 06:22 Order name: Bladder Scanner 05/15 08:48 Order name: Glucose Level rn Administered Medications: No medications were administered Disposition Summary: 05/15/21 10:21 Discharge Ordered Location: Home rn Problem: new rn Symptoms: have improved rn Condition: Stable rn Diagnosis - UTI/ Urinary tract infection, site not specified rn - Hyperglycemia, unspecified rn Followup: rn - With: Private Physician - When: As needed - Reason: Recheck today's complaints, Re-evaluation by your physician Discharge Instructions: - Discharge Summary Sheet rn - Dysuria rn - Hyperglycemia rn - Urinary Tract Infection, Adult rn - Blood Glucose Monitoring, Adult rn Forms: - Medication Reconciliation Form rn - Thank You Letter rn - Antibiotic transactional attorney - Prescription Opioid Use rn Prescriptions: - Cipro 500 mg Oral Tablet - take 1 tablet by ORAL route every 12 hours for 7 days; 14 tablet; Refills: 0, rn Product Selection Permitted Signatures: Dispatcher [employer] EDMD Becca Chandra FNP-C FNP-Ckb Ballard, Brenda, RN RN Leopoldo Potts MD MD rn
--- NOTE | 2021-05-15 10:21 | ER ---
Nurse's Notes [facility] Name: Karen Shah Age: 50 yrs Sex: Female : 1970 Arrival Date: 05/15/2021 Time: 05:17 Bed Waiting Private MD: Diagnosis: UTI/ Urinary tract infection, site not specified;Hyperglycemia, unspecified Presentation: 05/15 05:41 Chief complaint: Patient states: she feels short of breath and she thinks she has a UTI bb she has urgency and is unable to urinate the last time she was able to was yesterday afternoon. Coronavirus screen: At this time, the client does not indicate any symptoms associated with coronavirus-19. Ebola Screen: No symptoms or risks identified at this time. Initial Sepsis Screen: Does the patient meet any 2 criteria? No. Patient's initial sepsis screen is negative. Does the patient have a suspected source of infection? No. Patient's initial sepsis screen is negative. Risk Assessment: Do you want to hurt yourself or someone else? Patient reports no desire to harm self or others. Onset of symptoms was May 14, 2021. 05:41 Method Of Arrival: Wheelchair bb 05:41 Acuity: ARIEL 3 bb Triage Assessment: 05:47 General: Appears uncomfortable, Behavior is calm, cooperative. Pain: Complains of pain bb in pelvis Pain currently is 10 out of 10 on a pain scale. Neuro: Level of Consciousness is awake, alert, obeys commands, Oriented to person, place, time, situation. Cardiovascular: Capillary refill < 3 seconds Patient's skin is warm and dry. Respiratory: Reports shortness of breath Onset: The symptoms/episode began/occurred yesterday, the patient has mild shortness of breath. GI: No signs and/or symptoms were reported involving the gastrointestinal system. : Reports inability to void, since yesterday urinary frequency. Derm: Skin is pink, warm \T\ dry. Musculoskeletal: Amputation of right leg. 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 bb Historical: - Allergies: 05:44 Adhesives; bb 05:44 Toradol; bb 05:44 tramadol; bb - Home Meds: 05:44 aspirin 81 mg Oral tab [Active]; atorvastatin Oral [Active]; clopidogrel Oral [Active]; bb duloxetine Oral [Active]; escitalopram oxalate Oral [Active]; Furosemide Oral [Active]; gabapentin Oral [Active]; Humulin 70/30 U-100 Insulin 100 unit/mL (70-30) Sub-Q crtg [Active]; Isosorbide Mononitrate Oral [Active]; Metformin Oral [Active]; Nitroglycerin Topical [Active]; - PMHx: 05:44 angina pectoris; CAD; Cerebrovascular accident; CVA; Diabetes - IDDM; High Cholesterol; bb Hypertension; Myocardial infarction; Right AKA; Seizures; - PSHx: 05:44 CABG x 2; section; bb - Immunization history:: Adult Immunizations up to date, Client reports receiving the 2nd dose of the Covid vaccine, Remit[employer]. - Social history:: Smoking status: Patient reports the use of cigarette tobacco products. - Family history:: not pertinent. - Hospitalizations: : No recent hospitalization is reported. Screenin:00 Abuse screen: Denies threats or abuse. Denies injuries from another. Nutritional ss screening: No deficits noted. Tuberculosis screening: Never had TB. Fall Risk No fall in past 12 months (0 pts). Secondary diagnosis (15 points) impaired mobility, No IV (0 pts). Ambulatory Aid- None/Bed Rest/Nurse Assist (0 pts). Assessment: 08:00 General: Appears Pt reports she feels as if she has been unable to void since this ss morning. Only dribbling. . Respiratory: Airway is patent Respiratory effort is even, unlabored, Respiratory pattern is regular, symmetrical. Derm: Skin is intact, is healthy with good turgor, Skin is pink, warm \T\ dry. normal. 10:50 Reassessment: Attempted to locate and call number on file to give patient discharge ss papers and prescription from [facility]. Unable to locate or contact patient at this time. Vital Signs: 05:41 BP 143 / 98; Pulse 99; Resp 16 S; Temp 97.5(O); Pulse Ox 99% on R/A; Weight 64.41 kg bb (R); Height 5 ft. 4 in. (162.56 cm) (R); Pain 10/10; 05:41 Body Mass Index 24.37 (64.41 kg, 162.56 cm) bb ED Course: 05:17 Patient arrived in ED. es 05:44 Triage completed. bb 05:47 Arm band placed on Patient placed in waiting room, Patient notified of wait time. bb 08:00 Patient has correct armband on for positive identification. Bed in low position. Call ss light in reach. 08:06 Leopoldo Nixon MD is Attending Physician. rn 10:50 No provider procedures requiring assistance completed. Patient did not have IV access ss during this emergency room visit. Administered Medications: No medications were administered Outcome: 10:21 Discharge ordered by . rn 10:50 Discharged to home via wheelchair. ss 10:50 Condition: good 10:50 Discharge instructions given to Will continue to attempt to contact patient to further discuss discharge instructions 10:52 Patient left the ED. ss Addendum: 05/18/2021 13:43 Addendum: Culture Results: Positive urine culture. No further action required. Bacteria i w sensitive to prescribed antibiotic. Signatures: Ligia Jane Brenda, RN RN Dali Rubio RN RN Leopoldo Nixon MD MD rn Smirch, Shelby, RN RN
[2021-05-15 11:01] VITALS: BP 143/98; TEMP 97.5; O2SAT 99
== END 2021-05-15 10:52 | disposition home or self-care (01) ==
LOC: ER 04:48
DX: N39.0 Urinary tract infection, site not specified (principal); E11.65 Type 2 diabetes mellitus with hyperglycemia; I10 Essential (primary) hypertension; Z95.1 Presence of aortocoronary bypass graft; Z79.4 Long term (current) use of insulin; Z72.0 Tobacco use; Z88.5 Allergy status to narcotic agent; Z91.048 Other nonmedicinal substance allergy status
CPT/HCPCS: 36415; 80048; 81003; 81015; 85025; 87077; 87086; 87088; 87186; 99281

== ENCOUNTER 2021-05-17 23:27 | Emergency (ER) | payer OTHER ==
--- OUTSIDE RECORDS SUMMARY | 2021-05-17 23:48 | XMS REPORT | Continuity of Care Document ---
:1970 Author Organization [facility] t Address [address] [place] [address] Care Team Providers Name Role Phone Igor BRONW, Bennie Primary Care Physician Michael VILLEGAS Attending Clinician Unavailable Igor BROWN, Bennie Attending Clinician Doctor Unassigned, Name Attending Clinician Unavailable Joan Nieves DO Attending Clinician Bang ESPINOZA Attending Clinician BANG Attending Clinician Unavailable Fredy MURILLO, B Attending Clinician Unavailable Roger KING Attending Clinician Gregory BROWN Attending Clinician GREGORY Attending Clinician Unavailable Michael Villegas MD Attending Clinician Lc Leonard Attending Clinician Han BROWN, Marco Attending Clinician Hosea BROWN, Kyle Attending Clinician Bennie COSTA Attending Clinician Unavailable Trace BROWN, A Attending Clinician Pcp, Does Not Have A Attending Clinician Vance BROWN Attending Clinician VANCE Attending Clinician Unavailable Lisa MURILLO, A Attending Clinician Unavailable Jeanmarie ESPINOZA, F Attending Clinician Enzo BROWN S Attending Clinician Alessandra BROWN Attending Clinician Tomás BRONW Attending Clinician Art Barrett DO Attending Clinician [...] Expiration Date Vero neal MEDICARE PART A [id number] 2017 \\T\\ B 00:00:00 Problems Condition Condition Condition Status Onset Resolution Last Treating Co mments Source Name Details Category Date Date Treatment Clinician Date UTI UTI Disease Active Univers (urinary (urinary 8-20 ity of tract tract 00:00: [place] infection) infection) 00 Ky dical Branch Dizziness Dizziness Disease Active Uni vers 8-20 ity of 00:00: [place] 00 Medical Branch Weakness Weakness Disease Active Unive rs 8-20 ity of 00:00: [place] 00 [facility] Branch CAD in CAD in Disease Active Univers [place] 7-05 ity of artery artery 00:00: [place] [facility] Hypoglycem Hypoglycem Disease Active U nivers ia ia 6-11 ity of 00:00: [place] 00 [facility] 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 5-06 it y of on on 00:00: [place] Medical Branch Poor Poor Disease Active Univers [...] 00:00: [place] involving involving 00 Medi [place] Branch coronary coronary artery of artery of [place] heart heart without without angina angina pectoris [...] 00:00: [place] involving involving 00 Medi [place] Branch coronary coronary artery of artery of [place] heart heart without without angina angina pectoris pectoris PAD PAD Disease Active Univers (periphera (periphera 3-09 it y of l artery l artery 00:00: [place] disease) disease) 00 Medica l Branch GARY GARY Disease Active Overview: Univer s (stress (stress 02-02 Formattin ity o f urinary urinary 00:00: g of this [place] incontinen incontinen 00 note Me dical ce, ce, might be Branch female) female) different from the original. Added automatic ally from request for surgery [id number] GERD GERD Disease Active Univers (gastroeso (gastroeso it y of phageal phageal [place] reflux reflux Medical disease) disease) Branch DM DM Disease Active Univers (diabetes (diabetes ity of mellitus) mellitus) [facility] Depression Depression Disease Active U nivers ity of [facility] CVA CVA Disease Active Univers (cerebral (cerebral ity of vascular vascular [place] accident) accident) [facility] CHF CHF Disease Active Univers (congestiv (congestiv it y of e heart e heart [place] failure) failure) [facility] Anxiety Anxiety Disease Active Univers ity of [facility] Angina Angina Disease Active Univers pectoris pectoris ity of [facility] H/O right H/O right Disease Active Uni vers coronary coronary ity of artery artery [place] stent stent Medical placement placement Bran ch Hyperlipid Hyperlipid Disease Active U nivers emia, emia, ity of unspecifie [place]specifie [place] d d Medical hyperlipid hyperlipid Br anch emia type emia type Essential Essential Disease Active Uni vers hypertensi hypertensi it y [facility], [facility] Hx of CABG Hx of CABG Disease Active U nivers ity of [facility] Migraines Migraines Disease Active Uni vers ity of [facility] Seizures Seizures Disease Active Unive rs ity of [facility] Unilateral Unilateral Disease Active U nivers AKA, right AKA, right it y of [facility] High High Disease Active Univers cholestero cholestero it y of l l [facility] HTN HTN Disease Active Univers (hypertens (hypertens it y of ion) ion) [facility] Unilateral Unilateral Disease Active U nivers AKA, right AKA, right it y of [facility] Unilateral Unilateral Disease Active U nivers AKA, right AKA, right it y of 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 Problem Active [facility] current current [facility] - use of use of Memoria insulin insulin l [facility] Neuropathy Neuropathy Problem Active [facility] Depression Depression Problem Active [facility] with with [facility] - anxiety anxiety [facility]oria l [facility] HTN HTN Problem Active [facility] (hypertens (hypertens Charley kes - ion), ion), Memoria benign benign l [facility] Seizures Seizures Problem [facility] Coronary Coronary Problem Active [facility] t artery artery [facility] - disease disease Memoria involving involving l coronary coronary Outpat i bypass bypass ent graft of graft of Clinic s [place] heart with heart with angina angina pectoris pectoris Dependent Dependent Problem Active [facility] on on [facility] - wheelchair wheelchair Me moria l [facility] History of History of Problem Active [facility] right right [facility] - above knee above knee Me moria amputation amputation l [facility] Allergies, Adverse Reactions, Alerts Allergy [...] History of tobacco Cigarette Smoker [facility] Exposure to Not sure [place] of SARS-CoV-2 (event) [facility] Alcohol intake 2021-02-12 2021-02-12 Ex-drinker [facility] 00:00:00 00:00:00 (finding) [facility] Education 2021-01-15 2021-01-15 12 [facility] 00:00:00 00:00:00 [place] Medical [facility] History SDOH 2020-05-08 2020-05-08 99 University o f Alcohol Frequency 00:00:00 [facility]00 [facility] SDOH 2020-05-08 2020-05-08 99 University o f Alcohol Std Drinks 00:00:00 00:00:00 [facility] Branch History [facility] 2020-05-08 2020-05-08 99 [place] o f Alcohol Binge 00:00:00 00:00:00 [facility] Branch Tobacco Comment 2020-04-03 2020-04-03 smoking since 12 Uni versity of 00:00:00 00:00:[address] [facility] Alcohol Comment 2019-10-11 2019-10-11 rare Universit y of 00:00:00 00:00:00 [facility] Cigarettes smoked 2018-02-21 2018-02-21 Univers ity of current (pack per 00:00:00 00:00:00 [facility] ) - Reported Branch Tobacco use and 2018-02-21 2018-02-21 Never used Universit y of exposure 00:00:00 00:00:00 [facility] Sex Ass[birth year] At [birth year] Universit y of 00:00:00 00:00:00 [facility] Smoking Status Start Date Stop Date Source Current every day smoker 2018-02-21 00:00:[address] [facility] Medications Ordered Filled Start Stop Current Ordering Indication Dosage Frequency Signature Comments Components Source Medication Medication Date Date Medication? Clinician (SIG) Name Name MIRTAZAPINE 2020-05 Yes [id number] 15mg TAKE 1 Univers 15 mg 2-20 TABLET BY ity of tablet 00:00: MOUTH AT [place] 00 BEDTIME Medical Branch cefTRIAXone 2020- No 1000mg 1,000 mg, Univers (ROCEPHIN) 02-12 IV ity of 1,000 mg in 22:45: 10:44 [place], [place] NaCl 0.9% 00 :00 ONCE, 1 Medical (NS) 50 mL dose, On Bran h MINI-BAG Mon02/12/21 at 1745, Administer over 30 Minutes, 50 mL
Reas on for Anti-Infec tive: Empiric Therapy for Suspected Infection< br>Empiric Therapy Site: Urine
D uration of therapy: 72 hours cefTRIAXone No 1000mg 1,000 mg, Univers (ROCEPHIN) 02-12 IV ity of 1,000 mg in 22:45: 10:44 [place], [place] NaCl 0.9% 00 :00 ONCE, 1 Medical (NS) 50 mL dose, On Branc h MINI-BAG Mon02/12/21 at 1745, Administer over 30 Minutes, 50 mL
Reas on for Anti-Infec tive: Empiric Therapy for Suspected Infection< br>Empiric Therapy Site: Urine
D uration of therapy: 72 hours insulin 2020- No 10U 10 Units, Univ ers regular 02-12 Slow IV ity of human 21:30: 21:29 Sandra [place] (HUMULIN R) 00 :00 ONCE, 1 Medic al injection dose, On Branch 10 Units 02/12/21 at 1630, Routine NaCl 0.9% 2020- No 1000mL at 999 Uni vers (NS) bolus 02-12 mL/hr, ity of infusion 21:30: 22:08 1,000 mL, [place] 1,000 mL 00 :[facility] dose, On Mon02/12/21 at 1630, STAT insulin 2020- No 10U 10 Units, Univ ers regular 02-12 Slow IV ity of human 21:30: 21:29 [place], [place] (HUMULIN R) 00 :00 ONCE, 1 Medic al injection dose, On Branch 10 Units Mon02/12/21 at 1630, Routine NaCl 0.9% No 1000mL at 999 Uni vers (NS) bolus 02-12 mL/hr, ity of infusion 21:30: 22:08 1,000 mL, [place] as 1,000 mL 00 :00 IV Medical Piggyback, [place] ONCE, 1 dose, On Mon02/12/21 at 1630, STAT cefpodoxime 2020- No [id number] 100mg Take 1 Univers 100 mg 02-12 tablet by ity of tablet 00:00: 04:59 mouth 2 [place] 00 :00 (two) Medical times [place] daily for 7 days. cefpodoxime 2020- No [id number] 100mg Take 1 Univers 100 mg 02-12 tablet by ity of tablet 00:00: 04:59 mouth 2 [place] 00 :00 (two) Medical times [place] daily for 7 days. glipiZIDE 2020- No [id number] 10mg Take 1 U nivers 10 mg 01-18 tablet by ity of tablet 00:00: 04:59 mouth [place] 00 :00 daily for Medical 30 days. [place] glipiZIDE 2020- No [id number] 10mg Take 1 U nivers 10 mg 01-18 tablet by ity of tablet 00:00: 04:59 mouth [place] 00 :00 daily for Medical 30 days. [place] glipiZIDE 2020- No [id number] 10mg Take 1 U nivers 10 mg 01-18 tablet by ity of tablet 00:00: 00:00 mouth [place] 00 :00 daily for Medical 30 days. [place] glipiZIDE Yes 10mg 10 mg, Univer s (GLUCOTROL) 01-17 Oral, ity of tablet 10 14:00: DAILY, [place] mg 00 First dose Medical on [place] Branch 01/17/21 at 0900, Until Discontinu ed, [...] t;Duration of Therapy: Other (see Comments) nicotine 2020- No [id number] 1{patch Apply 1 Univers mg/24 hr 01-1720 } Patch to ity of patch 00:00: 04:59 area(s) [place] 00 :00 every 24 Medical (twenty-fo Branch ur) hours for 28 days. nicotine 14 2020- No [id number] 1{patch Apply 1 Univers mg/24 hr 01-1720 } Patch to ity of patch 00:00: 04:59 area(s) [place] 00 :00 every 24 Medical (twenty-fo Branch ur) hours for 28 days. nicotine 14 2020- No [id number] 1{patch Apply 1 Univers mg/24 hr 01-1720 } Patch to ity of patch 00:00: 04:59 area(s) [place] 00 :00 every 24 Medical (twenty-fo Branch ur) hours for 28 days. nicotine 14 2020- No [id number] 1{patch Apply 1 Univers mg/24 hr 01-1720 } Patch to ity of patch 00:00: 04:59 area(s) [place] 00 :00 every 24 Medical (twenty-fo Branch ur) hours for 28 days. nicotine 2020- No [id number] 1{patch Apply 1 Univers mg/24 hr 01-1720 } Patch to ity of patch 00:00: 04:59 area(s) [place] 00 :00 every 24 Medical (twenty-fo Branch ur) hours for 28 days. ciprofloxac 2020- No [id number] 500mg Take 1 Univers in HCl 500 01-17 tablet by ity of mg tablet 00:00: 04:59 mouth [place] 00 :00 every 12 Medical (twelve) Branch hours for 7 days. ciprofloxac No [id number] 500mg Take 1 Univers in HCl 500 01-17 tablet by ity of mg tablet 00:00: 04:59 mouth [place] 00 :00 every 12 Medical (twelve) Branch hours for 7 days. KCL 2020- No 60meq 60 mEq, Univers (KLOR-CON 01-16 Oral, ity of M20) tablet 16:00: 16:43 ONCE, 1 [place] 60 mEq 00 :00 dose, [facility] 01/16/21 at Branch 1100, Routine cefTRIAXone Yes 1000mg 1,000 mg, Univers (ROCEPHIN) 01-16 IV ity of 1,000 mg in 14:30: Piggyback, [place] NaCl 0.9% 00 Q24H ABX, Medic al (NS) 50 mL First dose Bra [facility] MINI-BAG on [facility] 01/16/21 at 0930, Until Discontinu ed, Administer over 30 Minutes, 50 mL
Reas on for Anti-Infec tive: Empiric Therapy for Suspected Infection< br>Empiric Therapy Site: Urine
D uration of therapy: 7 days pantoprazol Yes 40mg 40 mg, Univ ers e 01-16 Oral, ity of (PROTONIX) 14:00: DAILY, [place] EC tablet 00 First dose Medi blanquita 40 mg on [facility] 01/16/21 at 0900, Until Discontinu ed, Routine ezetimibe Yes 10mg 10 mg, Univer s (ZETIA) 01-16 Oral, ity of tablet 10 14:00: DAILY, [place] mg 00 First dose Medical on [facility] 01/16/21 at 0900, Until Discontinu ed, Routine clopidogreL Yes 75mg 75 mg, Univ ers (PLAVIX) 01-16 Oral, ity of tablet 75 14:00: DAILY, [place] mg 00 First dose Medical on [facility] 01/16/21 at 0900, Until Discontinu ed, Routine aspirin Yes 81mg 81 mg, Univers chewable 01-16 Oral, ity of tablet 81 14:00: DAILY, [place] mg 00 First dose Medical on [facility] 01/16/21 at 0900, Until Discontinu ed, Routine fluconazole 2020- No 150mg 150 mg, U nivers (DIFLUCAN) 01-16 Oral, ity of tablet 150 14:00: 20:40 DAILY, [place] mg 00 :05 First dose Medical on [facility] 01/16/21 at 0900, Until Discontinu ed, TRANG
Re ason for Anti-Infec tive: Documented Infection< br>Documen anthony Infection Site: Urine
D uration of Therapy: Other (see Comments) Sliding Yes Subcutaneo Univ ers Scale 01-16 us, TID ity of Insulin - 13:00: MEALS, [place] Lispro 00 First dose Medical (HumaLOG) + (after [place] Fsbg last Testing modificati on) on [facility] 01/16/21 at 0800, Until Discontinu ed, Routine insulin NPH 15U 15 Units, Univers and regular 01-16 Subcutaneo i ty of human 70-30 02:30: 01:47 , ONCE, [place] (HUMULIN 00 :00 1 dose, Medical 70-30 U-100 [facility] INSULIN) 01/15/21 at 100 unit/mL 2130, (70-30) Routine injection 15 Units mirtazapine Yes 15mg 15 mg, Univ ers (REMERON) 01-16 Oral, QHS, ity of tablet 15 02:00: First dose [place] mg 00 on Mon [facility] 01/15/21 at Branch 2100, Until Discontinu ed, Routine atorvastati Yes 80mg 80 mg, Univ ers n (LIPITOR) 01-16 Oral, QHS, it y of tablet 80 02:00: First dose [place] mg 00 on Mon [facility] 01/15/21 at Branch 2100, Until Discontinu ed, Routine gabapentin Yes 800mg 800 mg, Uni vers (NEURONTIN) 01-16 Oral, TID, it y of tablet 800 01:00: First dose [place] mg 00 on Mon [facility] 01/15/21 at Branch 2000, Until Discontinu ed, Routine nicotine Yes 1{patch 1 Patch, Un cali (NICODERM) 01-15 } Topical, ity o f 14 mg/24 hr 23:15: Administer [place] patch 1 00 over 24 Medical Patch Hours, [place] Q24H, First dose on Mon01/15/21 at 1815, Until Discontinu ed, Routine insulin NPH Yes 40U 40 Units, U nivers and regular 8- Subcutaneo it y of human 70-30 22:45: us, BIDAC, [place] (HUMULIN 00 First dose Medic al 70-30 U-100 on Mon Branch INSULIN) 01/15/21 at 100 unit/mL 1745, (70-30) Until injection Discontinu 40 Units ed, Routine NaCl 0.9% Yes 1000mL at 50 Unive rs (NS) IV 8-20 mL/hr, IV ity of infusion 22:45: Infusion, [place] 1,000 mL 00 CONTINUOUS Medic al , Starting Branch Mon01/15/21 at 1745, Until Discontinu ed, Routine Sliding 2020- No Subcutaneo Uni vers Scale 01-15 us, TID ity of Insulin - 22:45: 01:18 MEALS, [place] Lispro 00 :16 First dose Medical (HumaLOG) + on Mon Branch [facility] 01/15/21 at Testing 1745, Until Discontinu ed, Routine enoxaparin 0 Yes 40mg 40 mg, Unive rs (LOVENOX) 8 Subcutaneo ity of injection 22:00: us, DAILY, [place] 40 mg 00 First dose Medical on Fri Branch 01/15/21 at 1700, Until Discontinu ed, Routine morpHINE 0 Yes 2mg 2 mg, Slow Uni vers injection 2 01-15 IV Push, ity of mg 21:58: Q4HPJohnson, [place] 52 Starting Medical Fri [place] 01/15/21 at 1658, Until Discontinu ed, Routine, Pain (scale 7-10) ondansetron 0 Yes 4mg 4 mg, Slow Univers (ZOFRAN 8- IV Push, ity of (PF)) 21:32: Q6HPRShoup, [place] injection 4 17 Starting Medi blanquita mg Fri Branch 01/15/21 at 1632, Until Discontinu ed, Routine, Nausea and Vomiting (N/V) HYDROcodone 2020-0 202- No 1{tbl} 1 tablet, Univers -acetaminop 01-15 Oral, ity of hen (NORCO 21:31: 21:30 Q6HPRN, [place] as 5) 5-325 mg 58 :58 Starting Medi bl[place]qu[place] tablet 1 Fri Branch tablet 01/15/21 at 1631, Until 01/17/21 at 1630, Routine, Pain (scale 4-6) acetaminoph 2020-0 Yes 650mg 650 mg, Un cali en 8-20 Oral, ity of (TYLENOL) 21:31: Q6HPRN, [place] tablet 650 47 Starting Medic al mg Fri Branch 01/15/21 at 1631, Until Discontinu ed, Routine, Pain (scale 1-3) gabapentin 2020-0 Yes [id number] 800mg Take 1 Univers 800 mg 8-20 tablet by ity of tablet 00:00: mouth (three) Medical times Branch daily. gabapentin 2020-0 Yes [id number] 800mg Take 1 Univers 800 mg 8-20 tablet by ity of tablet 00:00: mouth (three) Medical times Branch daily. gabapentin 2020-0 Yes [id number] 800mg Take 1 Univers 800 mg 8-20 tablet by ity of tablet 00:00: mouth ([facility]) Medical times Branch daily. gabapentin 2020-0 Yes [id number] 800mg Take 1 Univers 800 mg 8-20 tablet by ity of tablet 00:00: mouth (three) Medical times Branch daily. gabapentin 2020-0 Yes [id number] 800mg Take 1 Univers 800 mg 8-20 tablet by ity of tablet 00:00: mouth (three) Medical times Branch daily. gabapentin 2020-0 Yes [id number] 800mg Take 1 Univers 800 mg 8-20 tablet by ity of tablet 00:00: mouth (three) Medical times Branch daily. gabapentin 2020-0 Yes [id number] 800mg Take 1 Univers 800 mg 8-20 tablet by ity of tablet 00:00: mouth (three) Medical times Branch daily. gabapentin 2020-0 Yes [id number] 800mg Take 1 Univers 800 mg 8-20 tablet by ity of tablet 00:00: mouth (three) Medical times Branch daily. gabapentin 2020-0 Yes [id number] 800mg Take 1 Univers 800 mg 8-20 tablet by ity of tablet 00:00: mouth (three) Medical times Branch daily. gabapentin Yes [id number] 800mg Take 1 Univers 800 mg 8-20 tablet by ity of tablet 00:00: mouth 3 [place] 00 (three) Medical times Branch daily. ondansetron Yes [id number] 4mg Take 1 Univers 4 mg 8-06 tablet by ity of disintegrat 00:00: mouth [place] ing tablet 00 every 8 Medica l (eight) Branch hours as needed for Nausea and Vomiting (N/V). ondansetron Yes [id number] 4mg Take 1 Univers 4 mg 8-06 tablet by ity of disintegrat 00:00: mouth [place] ing tablet 00 every 8 Medica l (eight) Branch hours as needed for Nausea and Vomiting (N/V). ondansetron Yes [id number] 4mg Take 1 Univers 4 mg 8-06 tablet by ity of disintegrat 00:00: mouth [place] ing tablet 00 every 8 Medica l (eight) Branch hours as needed for Nausea and Vomiting (N/V). ondansetron Yes [id number] 4mg Take 1 Univers 4 mg 8-06 tablet by ity of disintegrat 00:00: mouth [place] ing tablet 00 every 8 Medica l (eight) Branch hours as needed for Nausea and Vomiting (N/V). ondansetron Yes [id number] 4mg Take 1 Univers 4 mg 8-06 tablet by ity of disintegrat 00:00: mouth [place] ing tablet 00 every 8 Medica l (eight) Branch hours as needed for Nausea and Vomiting (N/V). glucagon 3 Yes [id number] 1{spray Use 1 Univers mg/actuatio 8-06 } [place] in ity of n [place] 00:00: each 00 nostril as Medical needed Branch (hypoglyce filomena). ondansetron Yes [id number] 4mg Take 1 Univers 4 mg 8-06 tablet by ity of disintegrat 00:00: mouth [place] ing tablet 00 every 8 Medica l (eight) Branch hours as needed for Nausea and Vomiting (N/V). glucagon 3 Yes [id number] 1{spray Use 1 Univers mg/actuatio 8-06 } [place] in ity of n [place] 00:00: each [place] 00 nostril as Medical needed Branch (hypoglyce filomena). ondansetron Yes [id number] 4mg Take 1 Univers 4 mg 8-06 tablet by ity of disintegrat 00:00: mouth [place] ing tablet 00 every 8 Medica l (eight) Branch hours as needed for Nausea and Vomiting (N/V). glucagon 3 Yes [id number] 1{spray Use 1 Univers mg/actuatio 8-06 } [place] in ity of n [place] 00:00: each [place] 00 nostril as Medical needed Branch (hypoglyce filomena). ondansetron Yes [id number] 4mg Take 1 Univers 4 mg 8-06 tablet by ity of disintegrat 00:00: mouth [place] ing tablet 00 every 8 Medica l (eight) Branch hours as needed for Nausea and Vomiting (N/V). ondansetron Yes [id number] 4mg Take 1 Univers 4 mg 8-06 tablet by ity of disintegrat 00:00: mouth [place] ing tablet 00 every 8 Medica l (eight) Branch hours as needed for Nausea and Vomiting (N/V). ondansetron Yes [id number] 4mg Take 1 Univers 4 mg 8-06 tablet by ity of disintegrat 00:00: mouth [place] ing tablet 00 every 8 Medica l (eight) Branch hours as needed for Nausea and Vomiting (N/V). ondansetron Yes [id number] 4mg Take 1 Univers 4 mg 8-06 tablet by ity of disintegrat 00:00: mouth [place] ing tablet 00 every 8 Medica l (eight) Branch hours as needed for Nausea and Vomiting (N/V). ondansetron Yes [id number] 4mg Take 1 Univers 4 mg 8-06 tablet by ity of disintegrat 00:00: mouth [place] ing tablet 00 every 8 Medica l (eight) Branch hours as needed for Nausea and Vomiting (N/V). glucagon 3 2020- No [id number] 1{spray Use 1 Univers mg/actuatio 8-06 08-20 } [place] in ity of n [place] 00:00: 00:00 each [place] 00 :00 nostril as Medical needed Branch (hypoglyce filomena). glucagon 3 2020-2020- No [id number] 1{spray Use 1 Univers mg/actuatio 01-0120 } [place] in ity of n [place] 00:00: 00:00 each [place] 00 :00 nostril as Medical needed Branch (hypoglyce filomena). glucagon 3 2020- No [id number] 1{spray Use 1 Univers mg/actuatio 01-0120 } [place] in ity of n [place] 00:00: 00:00 each [place] 00 :00 nostril as Medical needed Branch (hypoglyce filomena). GABAPENTIN Yes [id number] TAKE 1 Univers 800 mg 7-23 TABLET BY ity of tablet 00:00: MOUTH [place] 00 THREE Medical TIMES Branch DAILY GABAPENTIN 2020-0 2020- No [id number] TAKE 1 Univers 800 mg 7-23 08-19 TABLET BY ity of tablet 00:00: 00:00 MOUTH [place] 00 :00 THREE Medical TIMES Branch DAILY GABAPENTIN 2020-0 2020- No [id number] TAKE 1 Univers 800 mg 7-23 08-19 TABLET BY ity of tablet 00:00: 00:00 MOUTH [place] 00 :00 THREE Medical TIMES Branch DAILY aspirin 81 0 Yes [id number] 81mg Take 1 U nivers mg chewable 7-07 tablet by ity of tablet 00:00: mouth [place] 00 daily. Medical Branch clopidogreL 0 Yes [id number] 75mg Take 1 Univers 75 mg 7-07 tablet by ity of tablet 00:00: mouth [place] 00 daily. Medical Branch aspirin 81 2020-0 Yes [id number] 81mg Take 1 U nivers mg chewable 7-07 tablet by ity of tablet 00:00: mouth [place] 00 daily. Medical Branch clopidogreL 2020-0 Yes [id number] 75mg Take 1 Univers 75 mg 7-07 tablet by ity of tablet 00:00: mouth [place] 00 daily. Medical Branch aspirin 81 2020-0 Yes [id number] 81mg Take 1 U nivers mg chewable 7-07 tablet by ity of tablet 00:00: mouth [place] 00 daily. Medical Branch clopidogreL 2020-0 Yes [id number] 75mg Take 1 Univers 75 mg 7-07 tablet by ity of tablet 00:00: mouth [place] 00 daily. Medical Branch aspirin 81 2020-0 Yes [id number] 81mg Take 1 U nivers mg chewable 7-07 tablet by ity of tablet 00:00: mouth [place] 00 daily. Medical Branch clopidogreL 2020-0 Yes [id number] 75mg Take 1 Univers 75 mg 7-07 tablet by ity of tablet 00:00: mouth [place] 00 daily. Medical Branch aspirin 81 2020-0 Yes [id number] 81mg Take 1 U nivers mg chewable 7-07 tablet by ity of tablet 00:00: mouth [place] 00 daily. Medical Branch clopidogreL 2020-0 Yes [id number] 75mg Take 1 Univers 75 mg 7-07 tablet by ity of tablet 00:00: mouth [place] 00 daily. Medical Branch aspirin 81 2020-0 Yes [id number] 81mg Take 1 U nivers mg chewable 7-07 tablet by ity of tablet 00:00: mouth [place] 00 daily. [facility] clopidogreL 2020-0 Yes [id number] 75mg Take 1 [facility] 75 mg 7-07 tablet by ity of tablet 00:00: mouth [place] 00 daily. [facility] aspirin 81 2020-0 Yes [id number] 81mg Take 1 U nivers mg chewable 7-07 tablet by ity of tablet 00:00: mouth [place] 00 daily. [facility] clopidogreL 2020-0 Yes [id number] 75mg Take 1 [facility] 75 mg 7-07 tablet by ity of tablet 00:00: mouth [place] 00 daily. [facility] aspirin 81 2020-0 Yes [id number] 81mg Take 1 U nivers mg chewable 7-07 tablet by ity of tablet 00:00: mouth [place] 00 daily. [facility] clopidogreL 2020-0 Yes [id number] 75mg Take 1 [facility] 75 mg 7-07 tablet by ity of tablet 00:00: mouth [place] 00 daily. [facility] aspirin 81 2020-0 Yes [id number] 81mg Take 1 U nivers mg chewable 7-07 tablet by ity of tablet 00:00: mouth [place] 00 daily. [facility] clopidogreL 2020-0 Yes [id number] 75mg Take 1 [facility] 75 mg 7-07 tablet by ity of tablet 00:00: mouth [place] 00 daily. [facility] aspirin 81 2020-0 Yes [id number] 81mg Take 1 U nivers mg chewable 7-07 tablet by ity of tablet 00:00: mouth [place] 00 daily. [facility] clopidogreL 2020-0 Yes [id number] 75mg Take 1 [facility] 75 mg 7-07 tablet by ity of tablet 00:00: mouth [place] 00 daily. [facility] aspirin 81 2020-0 Yes [id number] 81mg Take 1 U nivers mg chewable 7-07 tablet by ity of tablet 00:00: mouth [place] 00 daily. [facility] clopidogreL 2020-0 Yes [id number] 75mg Take 1 [facility] 75 mg 7-07 tablet by ity of tablet 00:00: mouth [place] 00 daily. [facility] aspirin 81 2020-0 Yes [id number] 81mg Take 1 U nivers mg chewable 7-07 tablet by ity of tablet 00:00: mouth [place] 00 daily. [facility] aspirin 81 2020-0 Yes [id number] 81mg Take 1 U nivers mg chewable 7-07 tablet by ity of tablet 00:00: mouth [place] 00 daily. [facility] clopidogreL 2020-0 Yes [id number] 75mg Take 1 [facility] 75 mg 7-07 tablet by ity of tablet 00:00: mouth [place] 00 daily. [facility] clopidogreL 2020-0 Yes [id number] 75mg Take 1 [facility] 75 mg 7-07 tablet by ity of tablet 00:00: mouth [place] 00 daily. [facility] aspirin 81 2020-0 Yes [id number] 81mg Take 1 U nivers mg chewable 7-07 tablet by ity of tablet 00:00: mouth [place] 00 daily. [facility] clopidogreL 2020-0 Yes [id number] 75mg Take 1 [facility] 75 mg 7-07 tablet by ity of tablet 00:00: mouth [place] 00 daily. [facility] Branch aspirin 81 2020-0 2020- No 81mg Take 1 Univ ers mg chewable -11 02- tablet by it y of tablet 18:00: 00:00 mouth [place] 57 :00 daily. Medical Branch ezetimibe 0 Yes 10mg 10 mg, Univer s (ZETIA) -06 Oral, ity of tablet 10 14:00: DAILY, [place] mg 00 First dose Medical on [facility] 12/01/20 at 0900, Until Discontinu ed, Routine pantoprazol 0 Yes 40mg 40 mg, Univ ers e - Oral, ity of (PROTONIX) 14:00: DAILY, [place] EC tablet 00 First dose Medi blanquita 40 mg on [facility] 12/01/20 at 0900, Until Discontinu ed, Routine clopidogreL Yes [id number] 75mg 75 mg, Univers (PLAVIX) 12-01 Oral, ity of tablet 75 14:00: DAILY, [place] mg 00 First dose Medical on [facility] 12/01/20 at 0900, Until Discontinu ed, Routine
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 Restricted medication : [place] aspirin Yes [id number] 81mg 81 mg, [facility] ers chewable 12-01 Oral, ity of tablet 81 14:00: DAILY, [place] mg 00 First dose Medical on [facility] 12/01/20 at 0900, Until Discontinu ed, Routine heparin Yes 5000U 5,000 Univers (porcine) 12-01 Units, ity of injection 13:00: Subcutaneo [place] 5,000 Units 00 us, Q12H, Med ical First dose Branch on [facility] 12/01/20 at 0800, Until Discontinu ed, Routine gabapentin Yes 800mg 800 mg, Uni vers (NEURONTIN) 12-01 Oral, TID, it y of tablet 800 13:00: First dose [place] mg 00 on [facility] 12/01/20 at Branch 0800, Until Discontinu ed, Routine magnesium 2020- No 4g 4 g, IV [facility] ers sulfate in 12-01 Piggyback, it y of water 4 12:45: 14:07 ONCE, 1 [place] gram/50 mL 00 :00 dose, [facility] blanquita (8 %) IV 12/01/20 at [place] Piggyback 4 0745, g Routine insulin NPH Yes 40U 40 Units, U nivers and regular 12-01 Subcutaneo it y of human 70-30 12:30: us, BIDAC, [place] (HUMULIN 00 First dose Medic al 70-30 U-100 on [facility] INSULIN) 12/01/20 at 100 unit/mL 0730, (70-30) Until injection Discontinu 40 Units ed, Routine NaCl 0.9% 2020- No 1000mL at 20 [facility] ers (NS) IV 12-01 mL/hr, IV ity of infusion 05:00: 11:40 Infusion, [place] 1,000 mL 00 :32 CONTINUOUS Medic al , Starting Branch Mon12/01/20 at 0000, Until Mon12/01/20 at 0640, Routine&lt ;br>To be infused to keep line open
Sliding 2020- Yes Subcutaneo Univ ers Scale 7-06 us, TID ity of Insulin - 02:00: MEALS+HS, [place] Lispro 00 First dose Medical (HumaLOG) + on Mon Fsbg 11/30/20 at Testing 2100, Until Discontinu ed, Routine mirtazapine Yes 15mg 15 mg, Univ ers (REMERON) 06 Oral, QHS, ity of tablet 15 02:00: First dose [place] mg 00 on Mon Medical 11/30/20 at Branch 2100, Until Discontinu ed, [...] PROCEDURE Medical USE, 1 Branch dose, Starting 11/30/20 at 1725, Until 11/30/20 at 1725, Routine FENTanyl PF 2020- No Slow IV Un cali (SUBLIMAZE 11-3005 Push, ity of (PF)) 22:08: 22:08 TITRATE - [place] injection 10 :10 FOR Medical PROCEDURE Branch USE, 1 dose, Starting 11/30/20 at 1708, Until Mon11/30/20 at 1708, Routine heparin 2020- No Slow IV Univer s 1,000 11-30 Push, ity of unit/mL 21:55: 21:55 TITRATE - [place] injection 00 :00 FOR Medical PROCEDURE Branch USE, 1 dose, Starting Mon11/30/20 at 1655, Until Mon11/30/20 at 1655, Routine FENTanyl PF 2020- No Slow IV Un cali (SUBLIMAZE 11-30-05 Push, ity of (PF)) 21:50: 21:50 TITRATE - [place] injection 13 :13 FOR Medical PROCEDURE Branch USE, 1 dose, Starting Mon11/30/20 at 1650, Until Mon11/30/20 at 1650, Routine midazolam 2020- No IV Push, Uni vers (VERSED) 11-3005 TITRATE - ity o f injection 21:50: 21:50 FOR [place] 07 :07 PROCEDURE Medical USE, 1 Branch dose, Starting Mon11/30/20 at 1650, Until 11/30/20 at 1650, Routine FENTanyl PF 2020- No Slow IV Un cali (SUBLIMAZE 11-30-05 Push, ity of (PF)) 21:17: 21:17 TITRATE - [place] injection 55 :55 FOR Medical PROCEDURE Branch USE, 1 dose, Starting 11/30/20 at 1617, Until Mon11/30/20 at 1617, Routine FENTanyl PF 2020- No Slow IV Un cali (SUBLIMAZE 11-30 Push, ity of (PF)) 20:53: 20:53 TITRATE - [place] injection 44 :44 FOR Medical PROCEDURE Branch USE, 1 dose, Starting 11/30/20 at 1553, Until 11/30/20 at 1553, Routine midazolam 2020- No IV Push, Uni vers (VERSED) 11-30 TITRATE - ity o f injection 20:53: 20:53 FOR [place] 37 :37 PROCEDURE Medical USE, 1 Branch dose, Starting 11/30/20 at 1553, Until Mon11/30/20 at 1553, Routine insulin 2020- No [id number] 10U 10 Units, Univers lispro 11-30 Subcutaneo ity of (human) 18:00: 18:15 us, ONCE, [place] (HumaLOG 00 :00 1 dose, Medical U-100) Mon11/30/20 Branch injection at 1300, 10 Units Routine ezetimibe Yes [id number] 10mg Take 1 U nivers 10 mg 6-18 tablet by ity of tablet 00:00: mouth [place] 00 daily. Medical Branch furosemide 2020- Yes [id number] 1 tablet [facility] 20 mg 6-18 02 as needed ity of tablet 00:00: for leg [place] swelling Medical Branch ezetimibe 2020-0 Yes [id number] 10mg Take 1 U nivers 10 mg 6-18 tablet by ity of tablet 00:00: mouth [place] 00 daily. Medical Branch furosemide 2020-0 Yes [id number] 1 tablet [facility] 20 mg 6-18 02 as needed ity of tablet 00:00: for leg [place] swelling Medical Branch ezetimibe 2020-0 Yes [id number] 10mg Take 1 U nivers 10 mg 6-18 tablet by ity of tablet 00:00: mouth [place] 00 daily. Medical Branch furosemide 2020-0 Yes [id number] 1 tablet [facility] 20 mg 6-18 02 as needed ity of tablet 00:00: for leg [place] swelling Medical Branch ezetimibe 2020-0 Yes [id number] 10mg Take 1 U nivers 10 mg 6-18 tablet by ity of tablet 00:00: mouth [place] 00 daily. Medical Branch furosemide 2021-0 Yes [id number] 1 tablet [facility] 20 mg 6-18 02 as needed ity of tablet 00:00: for leg swelling Medical Branch ezetimibe 1-0 Yes [id number] 10mg Take 1 U nivers 10 mg 6-18 tablet by ity of tablet 00:00: mouth [place] 00 daily. Medical Branch furosemide 1-0 Yes [id number] 1 tablet [facility] 20 mg 6-18 02 as needed ity of tablet 00:00: for leg swelling Medical Branch ezetimibe 1-0 Yes [id number] 10mg Take 1 U nivers 10 mg 6-18 tablet by ity of tablet 00:00: mouth [place] 00 daily. Medical Branch furosemide 1-0 Yes [id number] 1 tablet [facility] 20 mg 6-18 02 as needed ity of tablet 00:00: for leg swelling Medical Branch ezetimibe 1-0 Yes [id number] 10mg Take 1 U nivers 10 mg 6-18 tablet by ity of tablet 00:00: mouth [place] 00 daily. Medical Branch furosemide 1-0 Yes [id number] 1 tablet [facility] 20 mg 6-18 02 as needed ity of tablet 00:00: for leg swelling Medical Branch ezetimibe 1-0 Yes [id number] 10mg Take 1 U nivers 10 mg 6-18 tablet by ity of tablet 00:00: mouth [place] 00 daily. Medical Branch furosemide 1-0 Yes [id number] 1 tablet [facility] 20 mg 6-18 02 as needed ity of tablet 00:00: for leg swelling Medical Branch ezetimibe 2021-0 Yes [id number] 10mg Take 1 U nivers 10 mg 6-18 tablet by ity of tablet 00:00: mouth [place] 00 daily. Medical Branch furosemide 2021-0 Yes [id number] 1 tablet [facility] 20 mg 6-18 02 as needed ity of tablet 00:00: for leg swelling Medical Branch ezetimibe 2021-0 Yes [id number] 10mg Take 1 U nivers 10 mg 6-18 tablet by ity of tablet 00:00: mouth [place] 00 daily. Medical Branch furosemide 1-0 Yes [id number] 1 tablet [facility] 20 mg 6-18 02 as needed ity of tablet 00:00: for leg swelling Medical Branch ezetimibe 2021-0 Yes [id number] 10mg Take 1 U nivers 10 mg 6-18 tablet by ity of tablet 00:00: mouth [place] 00 daily. Medical Branch furosemide 2021-0 Yes [id number] 1 tablet [facility] 20 mg 6-18 02 as needed ity of tablet 00:00: for leg swelling Medical Branch ezetimibe 2021-0 Yes [id number] 10mg Take 1 U nivers 10 mg 6-18 tablet by ity of tablet 00:00: mouth [place] 00 daily. Medical Branch furosemide 2021-0 Yes [id number] 1 tablet [facility] 20 mg 6-18 02 as needed ity of tablet 00:00: for leg swelling Medical Branch ezetimibe 2021-0 Yes [id number] 10mg Take 1 U nivers 10 mg 6-18 tablet by ity of tablet 00:00: mouth [place] 00 daily. Medical Branch furosemide 2021-0 Yes [id number] 1 tablet [facility] 20 mg 6-18 02 as needed ity of tablet 00:00: for leg swelling Medical Branch ezetimibe 2021-0 Yes [id number] 10mg Take 1 U nivers 10 mg 6-18 tablet by ity of tablet 00:00: mouth [place] 00 daily. Medical Branch furosemide 2021-0 Yes [id number] 1 tablet [facility] 20 mg 6-18 02 as needed ity of tablet 00:00: for leg swelling Medical Branch ezetimibe 2021-0 Yes [id number] 10mg Take 1 U nivers 10 mg 6-18 tablet by ity of tablet 00:00: mouth [place] 00 daily. Medical Branch furosemide 2021-0 Yes [id number] 1 tablet [facility] 20 mg 6-18 02 as needed ity of tablet 00:00: for leg swelling Medical Branch ezetimibe 2021-0 Yes [id number] 10mg Take 1 U nivers 10 mg 6-18 tablet by ity of tablet 00:00: mouth [place] 00 daily. Medical Branch furosemide 2021-0 Yes [id number] 1 tablet [facility] 20 mg 6-18 02 as needed ity of tablet 00:00: for leg swelling Medical Branch ezetimibe 2021-0 Yes [id number] 10mg Take 1 U nivers 10 mg 6-18 tablet by ity of tablet 00:00: mouth [place] 00 daily. Medical Branch furosemide 2020-0 Yes [id number] 1 tablet [facility] 20 mg 6-18 02 as needed ity of tablet 00:00: for leg swelling Medical Branch ezetimibe 2020-0 Yes [id number] 10mg Take 1 U nivers 10 mg 6-18 tablet by ity of tablet 00:00: mouth [place] 00 daily. Medical Branch furosemide 2020-0 Yes [id number] 1 tablet [facility] 20 mg 6-18 02 as needed ity of tablet 00:00: for leg swelling Medical Branch ezetimibe 2020-0 Yes [id number] 10mg Take 1 U nivers 10 mg 6-18 tablet by ity of tablet 00:00: mouth [place] 00 daily. Medical Branch furosemide 2020-0 Yes [id number] 1 tablet [facility] 20 mg 6-18 02 as needed ity of tablet 00:00: for leg swelling Medical Branch ezetimibe 2020-0 Yes [id number] 10mg Take 1 U nivers 10 mg 6-18 tablet by ity of tablet 00:00: mouth [place] 00 daily. Medical Branch furosemide 2020-0 Yes [id number] 1 tablet [facility] 20 mg 6-18 02 as needed ity of tablet 00:00: for leg swelling Medical Branch ezetimibe 2020-0 Yes [id number] 10mg Take 1 U nivers 10 mg 6-18 tablet by ity of tablet 00:00: mouth [place] 00 daily. Medical Branch furosemide 2020-0 Yes [id number] 1 tablet [facility] 20 mg 6-18 02 as needed ity of tablet 00:00: for leg swelling Medical Branch insulin NPH 2020-0 Yes [id number] 40U inject Univers and regular 5-12 40-50 ity of human 70-30 00:00: Units [place] (NOVOLIN 00 under the Medica l 70/30 U-100 skin 2 Branch INSULIN) (two) 100 unit/mL times (70-30) daily injection before breakfast and dinner. FREESTYLE 2020-0 Yes [id number] 1{kit} 1 Kit Univers RASHARD 2 5-12 every 14 ity of SENSOR Kit 00:00: (fourteen) [place] 00 days. Medical Branch insulin NPH Yes [id number] 40U inject Univers and regular 5-12 40-50 ity of human 70-30 00:00: Units [place] (NOVOLIN 00 under the Medica l 70/30 U-100 skin 2 Branch INSULIN) (two) 100 unit/mL times (70-30) daily injection before breakfast and dinner. FREESTYLE Yes [id number] 1{kit} 1 Kit [facility] RASHARD 2 5-12 every 14 ity of SENSOR Kit 00:00: (fourteen) [place] days. Medical [facility] insulin NPH Yes [id number] 40U inject Univers and regular 5-12 40-50 ity of human 70-30 00:00: Units [place] (NOVOLIN 00 under the Medica l 70/30 U-100 skin 2 Branch INSULIN) (two) 100 unit/mL times (70-30) daily injection before breakfast and dinner. FREESTYLE Yes [id number] 1{kit} 1 Kit Univers RASHARD 2 5-12 every 14 ity of SENSOR Kit 00:00: (fourteen) [place] days. Medical [facility] insulin NPH Yes [id number] 40U inject Univers and regular 5-12 40-50 ity of human 70-30 00:00: Units [place] (NOVOLIN 00 under the Medica l 70/30 U-100 skin 2 Branch INSULIN) (two) 100 unit/mL times (70-30) daily injection before breakfast and dinner. insulin NPH Yes [id number] 40U inject Univers and regular 5-12 40-50 ity of human 70-30 00:00: Units [place] (NOVOLIN 00 under the Medica l 70/30 U-100 skin 2 Branch INSULIN) (two) 100 unit/mL times (70-30) daily injection before breakfast and dinner. insulin NPH Yes [id number] 40U inject Univers and regular 5-12 40-50 ity of human 70-30 00:00: Units [place] (NOVOLIN 00 under the Medica l 70/30 U-100 skin 2 Branch INSULIN) (two) 100 unit/mL times (70-30) daily injection before breakfast and dinner. insulin NPH Yes [id number] 40U inject Univers and regular 5-12 40-50 ity of human 70-30 00:00: Units [place] (NOVOLIN 00 under the Medica l 70/30 U-100 skin 2 Branch INSULIN) (two) 100 unit/mL times (70-30) daily injection before breakfast and dinner. insulin NPH 0 Yes [id number] 40U inject Univers and regular 5-12 40-50 ity of human 70-30 00:00: Units [place] (NOVOLIN 00 under the Medica l 70/30 U-100 skin 2 Branch INSULIN) (two) 100 unit/mL times (70-30) daily injection before breakfast and dinner. insulin NPH 0 Yes [id number] 40U inject Univers and regular 5-12 40-50 ity of human 70-30 00:00: Units [place] (NOVOLIN 00 under the Medica l 70/30 U-100 skin 2 Branch INSULIN) (two) 100 unit/mL times (70-30) daily injection before breakfast and dinner. insulin NPH Yes [id number] 40U inject Univers and regular 5-12 40-50 ity of human 70-30 00:00: Units [place] (NOVOLIN 00 under the Medica l 70/30 U-100 skin 2 Branch INSULIN) (two) 100 unit/mL times (70-30) daily injection before breakfast and dinner. insulin NPH 0 Yes [id number] 40U inject Univers and regular 5-12 40-50 ity of human 70-30 00:00: Units [place] (NOVOLIN 00 under the Medica l 70/30 U-100 skin 2 Branch INSULIN) (two) 100 unit/mL times (70-30) daily injection before breakfast and dinner. insulin NPH 0 Yes [id number] 40U inject Univers and regular 5-12 40-50 ity of human 70-30 00:00: Units [place] (NOVOLIN 00 under the Medica l 70/30 U-100 skin 2 Branch INSULIN) (two) 100 unit/mL times (70-30) daily injection before breakfast and dinner. insulin NPH 0 Yes [id number] 40U inject Univers and regular 5-12 40-50 ity of human 70-30 00:00: Units [place] (NOVOLIN 00 under the Medica l 70/30 U-100 skin 2 Branch INSULIN) (two) 100 unit/mL times (70-30) daily injection before breakfast and dinner. insulin NPH 0 Yes [id number] 40U inject Univers and regular 5-12 40-50 ity of human 70-30 00:00: Units [place] (NOVOLIN 00 under the Medica l 70/30 U-100 skin 2 Branch INSULIN) (two) 100 unit/mL times (70-30) daily injection before breakfast and dinner. insulin NPH 0 Yes [id number] 40U inject Univers and regular 5-12 40-50 ity of human 70-30 00:00: Units [place] (NOVOLIN 00 under the Medica l 70/30 U-100 skin 2 Branch INSULIN) (two) 100 unit/mL times (70-30) daily injection before breakfast and dinner. insulin NPH 0 Yes [id number] 40U inject Univers and regular 5-12 40-50 ity of human 70-30 00:00: Units [place] (NOVOLIN 00 under the Medica l 70/30 U-100 skin 2 Branch INSULIN) (two) 100 unit/mL times (70-30) daily injection before breakfast and dinner. insulin NPH 0 Yes [id number] 40U inject Univers and regular 5-12 40-50 ity of human 70-30 00:00: Units [place] (NOVOLIN 00 under the Medica l 70/30 U-100 skin 2 Branch INSULIN) (two) 100 unit/mL times (70-30) daily injection before breakfast and dinner. insulin NPH 0 Yes [id number] 40U inject Univers and regular 5-12 40-50 ity of human 70-30 00:00: Units [place] (NOVOLIN 00 under the Medica l 70/30 U-100 skin 2 Branch INSULIN) (two) 100 unit/mL times (70-30) daily injection before breakfast and dinner. insulin NPH 0 Yes [id number] 40U inject Univers and regular 5-12 40-50 ity of human 70-30 00:00: Units [place] (NOVOLIN 00 under the Medica l 70/30 U-100 skin 2 Branch INSULIN) (two) 100 unit/mL times (70-30) daily injection before breakfast and dinner. insulin NPH 0 Yes [id number] 40U inject Univers and regular 5-12 40-50 ity of human 70-30 00:00: Units [place] (NOVOLIN 00 under the Medica l 70/30 U-100 skin 2 Branch INSULIN) (two) 100 unit/mL times (70-30) daily injection before breakfast and dinner. insulin NPH Yes [id number] 40U inject Univers and regular 5-12 40-50 ity of human 70-30 00:00: Units [place] (NOVOLIN 00 under the Medica l 70/30 U-100 skin 2 Branch INSULIN) (two) 100 unit/mL times (70-30) daily injection before breakfast and dinner. insulin NPH Yes [id number] 40U inject Univers and regular 5-12 40-50 ity of human 70-30 00:00: Units [place] (NOVOLIN 00 under the Medica l 70/30 U-100 skin 2 Branch INSULIN) (two) 100 unit/mL times (70-30) daily injection before breakfast and dinner. insulin NPH Yes [id number] 40U inject Univers and regular 5-12 40-50 ity of human 70-30 00:00: Units [place] (NOVOLIN 00 under the Medica l 70/30 U-100 skin 2 Branch INSULIN) (two) 100 unit/mL times (70-30) daily injection before breakfast and dinner. insulin NPH Yes [id number] 40U inject Univers and regular 5-12 40-50 ity of human 70-30 00:00: Units [place] (NOVOLIN 00 under the Medica l 70/30 U-100 skin 2 Branch INSULIN) (two) 100 unit/mL times (70-30) daily injection before breakfast and dinner. insulin NPH Yes [id number] 40U inject Univers and regular 5-12 40-50 ity of human 70-30 00:00: Units [place] (NOVOLIN 00 under the Medica l 70/30 U-100 skin 2 Branch INSULIN) (two) 100 unit/mL times (70-30) daily injection before breakfast and dinner. FREESTYLE 2020- No [id number] 1{kit} 1 Kit Univers RASHARD 2 10-0718 every 14 ity of SENSOR Kit 00:00: 00:00 (fourteen) [place] 00 :00 days. Medical Branch FREESTYLE 2020- No [id number] 1{kit} 1 Kit [facility] RASHARD 2 12 06-18 every 14 ity of SENSOR Kit 00:00: 00:00 (fourteen) [place] 00 :00 days. Medical Branch mirtazapine Yes [id number] 15mg Take 1 [facility] 15 mg 5-06 tablet by ity of tablet 00:00: mouth at [place] [address] bedtime. Medical Branch atorvastati Yes [id number] 80mg Take 1 Univers n 80 mg 5-06 tablet by ity of tablet 00:00: mouth at [place] [address] bedtime. Medical Branch glipiZIDE Yes [id number] 5mg Take 0.5 Univers 10 mg 5-06 tablets by ity of tablet 00:00: mouth 2 [place] (two) Medical times Branch daily before breakfast and dinner. mirtazapine Yes [id number] 15mg Take 1 [facility] 15 mg 5-06 tablet by ity of tablet 00:00: mouth at [place] [address] bedtime. Medical Branch atorvastati Yes [id number] 80mg Take 1 Univers n 80 mg 5-06 tablet by ity of tablet 00:00: mouth at [place] [address] bedtime. Medical Branch glipiZIDE Yes [id number] 5mg Take 0.5 Univers 10 mg 5-06 tablets by ity of tablet 00:00: mouth 2 [place] (two) Medical times Branch daily before breakfast and dinner. mirtazapine Yes [id number] 15mg Take 1 [facility] 15 mg 5-06 tablet by ity of tablet 00:00: mouth at [place] [address] bedtime. Medical Branch atorvastati Yes [id number] 80mg Take 1 Univers n 80 mg 5-06 tablet by ity of tablet 00:00: mouth at [place] [address] bedtime. Medical Branch mirtazapine Yes [id number] 15mg Take 1 [facility] 15 mg 5-06 tablet by ity of tablet 00:00: mouth at [place] [address] bedtime. Medical Branch atorvastati Yes [id number] 80mg Take 1 Univers n 80 mg 5-06 tablet by ity of tablet 00:00: mouth at [place] [address] bedtime. Medical Branch mirtazapine Yes [id number] 15mg Take 1 [facility] 15 mg 5-06 tablet by ity of tablet 00:00: mouth at [place] 00 bedtime. Medical Branch atorvastati 0 Yes [id number] 80mg Take 1 Univers n 80 mg 5-06 tablet by ity of tablet 00:00: mouth at [place] 00 bedtime. Medical Branch mirtazapine 0 Yes [id number] 15mg Take 1 [facility] 15 mg 5-06 tablet by ity of tablet 00:00: mouth at [place] 00 bedtime. Medical Branch atorvastati 0 Yes [id number] 80mg Take 1 Univers n 80 mg 5-06 tablet by ity of tablet 00:00: mouth at [place] [address] bedtime. Medical Branch mirtazapine Yes [id number] 15mg Take 1 [facility] 15 mg 5-06 tablet by ity of tablet 00:00: mouth at [place] [address] bedtime. Medical Branch atorvastati 0 Yes [id number] 80mg Take 1 Univers n 80 mg 5-06 tablet by ity of tablet 00:00: mouth at [place] [address] bedtime. Medical Branch mirtazapine Yes [id number] 15mg Take 1 Univers 15 mg 5-06 tablet by ity of tablet 00:00: mouth at [place] [address] bedtime. Medical Branch atorvastati 0 Yes [id number] 80mg Take 1 Univers n 80 mg 5-06 tablet by ity of tablet 00:00: mouth at [place] [address] bedtime. Medical Branch mirtazapine 0 Yes [id number] 15mg Take 1 [facility] 15 mg 5-06 tablet by ity of tablet 00:00: mouth at [place] [address] bedtime. Medical Branch atorvastati 0 Yes [id number] 80mg Take 1 Univers n 80 mg 5-06 tablet by ity of tablet 00:00: mouth at [place] [address] bedtime. Medical Branch mirtazapine 0 Yes [id number] 15mg Take 1 Univers 15 mg 5-06 tablet by ity of tablet 00:00: mouth at [place] [address] bedtime. Medical Branch atorvastati 0 Yes [id number] 80mg Take 1 Univers n 80 mg 5-06 tablet by ity of tablet 00:00: mouth at [place] 00 bedtime. Medical Branch mirtazapine 2020-0 Yes [id number] 15mg Take 1 Univers 15 mg 5-06 tablet by ity of tablet 00:00: mouth at [place] 00 bedtime. Medical Branch atorvastati 2020-0 Yes [id number] 80mg Take 1 Univers n 80 mg 5-06 tablet by ity of tablet 00:00: mouth at [place] 00 bedtime. Medical Branch mirtazapine 2020-0 Yes [id number] 15mg Take 1 Univers 15 mg 5-06 tablet by ity of tablet 00:00: mouth at [place] 00 bedtime. Medical Branch atorvastati 2020-0 Yes [id number] 80mg Take 1 Univers n 80 mg 5-06 tablet by ity of tablet 00:00: mouth at [place] 00 bedtime. Medical Branch mirtazapine 2020-0 Yes [id number] 15mg Take 1 Univers 15 mg 5-06 tablet by ity of tablet 00:00: mouth at [place] [address] bedtime. Medical Branch atorvastati 0 Yes [id number] 80mg Take 1 Univers n 80 mg 5-06 tablet by ity of tablet 00:00: mouth at [place] [address] bedtime. Medical Branch mirtazapine 0 Yes [id number] 15mg Take 1 Univers 15 mg 5-06 tablet by ity of tablet 00:00: mouth at [place] [address] bedtime. Medical Branch atorvastati 0 Yes [id number] 80mg Take 1 Univers n 80 mg 5-06 tablet by ity of tablet 00:00: mouth at [place] [address] bedtime. Medical Branch mirtazapine 2020-0 Yes [id number] 15mg Take 1 Univers 15 mg 5-06 tablet by ity of tablet 00:00: mouth at [place] [address] bedtime. Medical Branch atorvastati 0 Yes [id number] 80mg Take 1 Univers n 80 mg 5-06 tablet by ity of tablet 00:00: mouth at [place] [address] bedtime. Medical Branch mirtazapine 2020-0 Yes [id number] 15mg Take 1 [facility] 15 mg 5-06 tablet by ity of tablet 00:00: mouth at [place] [address] bedtime. Medical Branch atorvastati 2020-0 Yes [id number] 80mg Take 1 [facility] n 80 mg 5-06 tablet by ity of tablet 00:00: mouth at [place] 00 bedtime. Medical Branch mirtazapine 2020-0 Yes [id number] 15mg Take 1 [facility] 15 mg 5-06 tablet by ity of tablet 00:00: mouth at [place] [address] bedtime. Medical Branch atorvastati 2020-0 Yes [id number] 80mg Take 1 [facility] n 80 mg 5-06 tablet by ity of tablet 00:00: mouth at [place] [address] bedtime. Medical Branch mirtazapine 2020-0 Yes [id number] 15mg Take 1 [facility] 15 mg 5-06 tablet by ity of tablet 00:00: mouth at [place] 00 bedtime. Medical Branch atorvastati 0 Yes [id number] 80mg Take 1 [facility] n 80 mg 5-06 tablet by ity of tablet 00:00: mouth at [place] [address] bedtime. Medical Branch mirtazapine 0 Yes [id number] 15mg Take 1 [facility] 15 mg 5-06 tablet by ity of tablet 00:00: mouth at [place] [address] bedtime. Medical Branch atorvastati 0 Yes [id number] 80mg Take 1 [facility] n 80 mg 5-06 tablet by ity of tablet 00:00: mouth at [place] [address] bedtime. Medical Branch mirtazapine 0 Yes [id number] 15mg Take 1 [facility] 15 mg 5-06 tablet by ity of tablet 00:00: mouth at [place] [address] bedtime. Medical Branch atorvastati 0 Yes [id number] 80mg Take 1 [facility] n 80 mg 5-06 tablet by ity of tablet 00:00: mouth at [place] [address] bedtime. Medical Branch mirtazapine 2020-0 Yes [id number] 15mg Take 1 [facility] 15 mg 5-06 tablet by ity of tablet 00:00: mouth at [place] [address] bedtime. Medical Branch atorvastati 0 Yes [id number] 80mg Take 1 [facility] n 80 mg 5-06 tablet by ity of tablet 00:00: mouth at [place] [address] bedtime. Medical Branch mirtazapine 0 Yes [id number] 15mg Take 1 [facility] 15 mg 5-06 tablet by ity of tablet 00:00: mouth at [place] [address] bedtime. Medical Branch mirtazapine 0 Yes [id number] 15mg Take 1 [facility] 15 mg 5-06 tablet by ity of tablet 00:00: mouth at [place] [address] bedtime. Medical Branch atorvastati Yes [id number] 80mg Take 1 [facility] n 80 mg 5-06 tablet by ity of tablet 00:00: mouth at [place] [address] bedtime. Medical Branch atorvastati Yes [id number] 80mg Take 1 [facility] n 80 mg 5-06 tablet by ity of tablet 00:00: mouth at [place] 00 bedtime. Medical Branch mirtazapine Yes [id number] 15mg Take 1 [facility] 15 mg 5-06 tablet by ity of tablet 00:00: mouth at [place] 00 bedtime. Medical Branch atorvastati Yes [id number] 80mg Take 1 [facility] n 80 mg 5-06 tablet by ity of tablet 00:00: mouth at [place] [address] bedtime. Medical Branch mirtazapine Yes [id number] 15mg Take 1 [facility] 15 mg 5-06 tablet by ity of tablet 00:00: mouth at [place] [address] bedtime. Medical Branch atorvastati Yes [id number] 80mg Take 1 [facility] n 80 mg 5-06 tablet by ity of tablet 00:00: mouth at [place] [address] bedtime. Medical Branch atorvastati Yes [id number] 80mg Take 1 [facility] n 80 mg 5-06 tablet by ity of tablet 00:00: mouth at [place] [address] bedtime. Medical Branch mirtazapine Yes [id number] 15mg Take 1 [facility] 15 mg 5-06 tablet by ity of tablet 00:00: mouth at [place] [address] bedtime. Medical Branch atorvastati Yes [id number] 80mg Take 1 [facility] n 80 mg 5-06 tablet by ity of tablet 00:00: mouth at [place] [address] bedtime. Medical [facility] glipiZIDE Yes Type 2 [...] [place] 00 involving bed[place]. [facility] [place] coronary artery of [place] heart without angina pectoris glipiZIDE Yes Type [...] o f tablet 00:00: disease [place] 00 involving bedtime. [facility]ica [facility] [place] [facility] coronary artery of [place] heart without angina pectoris mirtazapine 2020- No [id number] 15mg Take 1 [facility] 15 mg 5-06 12-20 tablet by ity of tablet 00:00: 00:00 mouth at [place] 00 :00 bedtime. Medical Branch glipiZIDE 2020- No [id number] 5mg Take 0.5 [facility] 10 mg 5-06 05-12 tablets by ity of tablet 00:00: 00:00 mouth 2 [place] 00 :00 (two) Medical times Branch daily before breakfast and dinner. glipiZIDE 2020- No [id number] 5mg Take 0.5 [facility] 10 mg 5-06 05-12 tablets by ity of tablet 00:00: 00:00 mouth 2 [place] 00 :00 (two) Medical times Branch daily before breakfast and dinner. fluconazole 2020- No [id number] 150mg Take 1 [facility] 150 mg 4-14 04-17 tablet by ity of tablet 00:00: 04:59 mouth [place] 00 :00 every 72 Medical (seventy-t Branch wo) hours for 2 days. fluconazole 2020- No [id number] 150mg Take 1 [facility] 150 mg 4-14 -17 tablet by ity of tablet 00:00: 04:59 mouth [place] 00 :00 every 72 Medical (seventy-t Branch wo) hours for 2 days. fluconazole 2020- No [id number] 150mg Take 1 [facility] 150 mg 4-14 -17 tablet by ity of tablet 00:00: 04:59 mouth [place] 00 :00 every 72 Medical (seventy-t Branch wo) hours for 2 days. insulin NPH Yes 60U 60 Units, U nivers and regular 4-13 Subcutaneo it y of human 70-30 12:30: us, BIDAC, [place] (HUMULIN 00 First dose Medic al 70-30 U-100 (after Branch INSULIN) last 100 unit/mL modificati (70-30) on) on Tue injection 09/08/20 at 60 Units 0730, Until Discontinu ed, Routine ezetimibe 2020- No [id number] 10mg Take 1 [facility] 10 mg -08 10-14 tablet by ity of tablet 00:00: 04:59 mouth [place] 00 :00 daily for Medical 30 days. Branch insulin NPH 2020- No [id number] 60U inject 60 Univers and regular 4-13 05-14 Units ity of human 70-30 00:00: 04:59 under the [place] (NOVOLIN 00 :00 skin 2 Medical 70/30 U-100 (two) Branch INSULIN) times 100 unit/mL daily (70-30) before injection breakfast and dinner for 30 days. ezetimibe 2020- No [id number] 10mg Take 1 [facility] 10 mg -13 -14 tablet by ity of tablet 00:00: 04:59 mouth [place] 00 :00 daily for Medical 30 days. Branch insulin NPH 2020- No [id number] 60U inject 60 Univers and regular 4-13 05-14 Units ity of human 70-30 00:00: 04:59 under the [place] (NOVOLIN 00 :00 skin 2 Medical 70/30 U-100 (two) Branch INSULIN) times 100 unit/mL daily (70-30) before injection breakfast and dinner for 30 days. ezetimibe 2020- No [id number] 10mg Take 1 [facility] 10 mg 4-13 05-14 tablet by ity of tablet 00:00: 04:59 mouth [place] 00 :00 daily for Medical 30 days. Branch insulin NPH 2020- No [id number] 60U inject 60 Univers and regular 4-13 05-14 Units ity of human 70-30 00:00: 04:59 under the [place] (NOVOLIN 00 :00 skin 2 Medical 70/30 U-100 (two) Branch INSULIN) times 100 unit/mL daily (70-30) before injection breakfast and dinner for 30 days. ezetimibe 2020- No [id number] 10mg Take 1 [facility] 10 mg 4-13 05-14 tablet by ity of tablet 00:00: 04:59 mouth [place] 00 :00 daily for Medical 30 days. Branch insulin NPH 2020- No [id number] 60U inject 60 Univers and regular 4-13 05-14 Units ity of human 70-30 00:00: 04:59 under the [place] (NOVOLIN 00 :00 skin 2 Medical 70/30 U-100 (two) Branch INSULIN) times 100 unit/mL daily (70-30) before injection breakfast and dinner for 30 days. ezetimibe 2020- No [id number] 10mg Take 1 [facility] 10 mg 4-13 05-14 tablet by ity of tablet 00:00: 04:59 mouth [place] 00 :00 daily for Medical 30 days. Branch insulin NPH 2020- No [id number] 60U inject 60 [facility] and regular 4-13 05-14 Units ity of human 70-30 00:00: 04:59 under the [place] (NOVOLIN 00 :00 skin 2 Medical 70/30 U-100 (two) Branch INSULIN) times 100 unit/mL daily (70-30) before injection breakfast and dinner for 30 days. ezetimibe 2020- No [id number] 10mg Take 1 [facility] 10 mg 4-13 05-14 tablet by ity of tablet 00:00: 04:59 mouth [place] 00 :00 daily for Medical 30 days. Branch insulin NPH 2020- No [id number] 60U inject 60 Univers and regular 4-13 05-14 Units ity of human 70-30 00:00: 04:59 under the [place] (NOVOLIN 00 :00 skin 2 Medical 70/30 U-100 (two) Branch INSULIN) times 100 unit/mL daily (70-30) before injection breakfast and dinner for 30 days. ezetimibe 2020-2020- No [id number] 10mg Take 1 [facility] 10 mg 4-13 05-14 tablet by ity of tablet 00:00: 04:59 mouth [place] 00 :00 daily for Medical 30 days. Branch insulin NPH 2020- No [id number] 60U inject 60 [facility] and regular 4-13 05-14 Units ity of human 70-30 00:00: 04:59 under the [place] (NOVOLIN 00 :00 skin 2 Medical 70/30 U-100 (two) Branch INSULIN) times 100 unit/mL daily (70-30) before injection breakfast and dinner for 30 days. ezetimibe 2020- No [id number] 10mg Take 1 [facility] 10 mg 4-13 05-14 tablet by ity of tablet 00:00: 04:59 mouth [place] 00 :00 daily for Medical 30 days. 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 insulin NPH 2020- No [id number] 60U inject 60 Univers and regular 4-13 05-12 Units ity of human 70-30 00:00: 00:00 under the [place] (NOVOLIN 00 :00 skin 2 Medical 70/30 U-100 (two) Branch INSULIN) times 100 unit/mL daily (70-30) before injection breakfast and dinner for 30 days. insulin NPH 2020- No [id number] 60U inject 60 [facility] and regular 4-13 05-12 Units ity of human 70-30 00:00: 00:00 under the [place] (NOVOLIN 00 :00 skin 2 Medical 70/30 U-100 (two) Branch INSULIN) times 100 unit/mL daily (70-30) before injection breakfast and dinner for 30 days. aspirin 81 2020-0 Yes 81mg Take 1 [...] of tablet 23:21: mouth [place] 25 daily. [facility] Branch aspirin 81 2020-0 Yes 81mg [...] Medical Branch insulin NPH 2020-0 2020- No [id number] 90U inject 90 Univers and regular 4-12 05-13 Units ity of human 70-30 00:00: 04:59 under the [place] (NOVOLIN 00 :00 skin 2 Medical 70/30 U-100 (two) Branch INSULIN) times 100 unit/mL daily (70-30) before injection breakfast and dinner for 30 days. metoprolol 2020- No [id number] 50mg Take 0.5 Univers succinate 4-12 05-13 tablets by ity of XL 100 mg 00:00: 04:59 mouth [place] 24 hr 00 :00 daily for Medical tablet 30 days. Branch glipiZIDE No [id number] 10mg Take 1 [facility] 10 mg 4-12 05-13 tablet by ity of tablet 00:00: 04:59 mouth 2 [place] 00 :00 (two) Medical times Branch daily before breakfast and dinner for 30 days. SITagliptin No [id number] 100mg Take 1 [facility] 100 mg 4-12 05-13 tablet by ity of tablet 00:00: 04:59 mouth [place] 00 :00 evening Medical meal for Branch 30 days. insulin NPH 2020- No [id number] 90U inject 90 Univers and regular 4-12 05-13 Units ity of human 70-30 00:00: 04:59 under the [place] (NOVOLIN 00 :00 skin 2 Medical 70/30 U-100 (two) Branch INSULIN) times 100 unit/mL daily (70-30) before injection breakfast and dinner for 30 days. metoprolol No [id number] 50mg Take 0.5 [facility] succinate 4-12 05-13 tablets by ity of XL 100 mg 00:00: 04:59 mouth [place] 24 hr 00 :00 daily for Medical tablet 30 days. Branch glipiZIDE No [id number] 10mg Take 1 [facility] 10 mg 4-12 05-13 tablet by ity of tablet 00:00: 04:59 mouth 2 [place] 00 :00 (two) Medical times [place] daily before breakfast and dinner for 30 days. SITagliptin No [id number] 100mg Take 1 [facility] 100 mg 4-12 05-13 tablet by ity of tablet 00:00: 04:59 mouth [place] 00 :00 evening Medical meal for Branch 30 days. insulin NPH No [id number] 90U inject 90 Univers and regular 4-12 05-13 Units ity of human 70-30 00:00: 04:59 under the [place] (NOVOLIN 00 :00 skin 2 Medical 70/30 U-100 (two) Branch INSULIN) times 100 unit/mL daily (70-30) before injection breakfast and dinner for 30 days. metoprolol 2020- No [id number] 50mg Take 0.5 Univers succinate 4-12 05-13 tablets by ity of XL 100 mg 00:00: 04:59 mouth [place] 24 hr 00 :00 daily for Medical tablet 30 days. Branch glipiZIDE 2020- No [id number] 10mg Take 1 [facility] 10 mg 4-12 05-13 tablet by ity of tablet 00:00: 04:59 mouth 2 [place] 00 :00 (two) Medical times Branch daily before breakfast and dinner for 30 days. SITagliptin 2020- No [id number] 100mg Take 1 [facility] 100 mg 4-12 05-13 tablet by ity of tablet 00:00: 04:59 mouth [place] 00 :00 evening Medical meal for Branch 30 days. insulin NPH 2020- No [id number] 90U inject 90 Univers and regular 4-12 05-13 Units ity of human 70-30 00:00: 04:59 under the [place] (NOVOLIN 00 :00 skin 2 Medical 70/30 U-100 (two) Branch INSULIN) times 100 unit/mL daily (70-30) before injection breakfast and dinner for 30 days. metoprolol 2020- No [id number] 50mg Take 0.5 Univers succinate 4-12 05-13 tablets by ity of XL 100 mg 00:00: 04:59 mouth [place] 24 hr 00 :00 daily for Medical tablet 30 days. Branch glipiZIDE 2020- No [id number] 10mg Take 1 [facility] 10 mg 4-12 05-13 tablet by ity of tablet 00:00: 04:59 mouth 2 [place] 00 :00 (two) Medical times Branch daily before breakfast and dinner for 30 days. SITagliptin 2020- No [id number] 100mg Take 1 [facility] 100 mg 4-12 05-13 tablet by ity of tablet 00:00: 04:59 mouth [place] 00 :00 evening Medical meal for Branch 30 days. insulin NPH 2020- No [id number] 90U inject 90 Univers and regular 4-12 05-13 Units ity of human 70-30 00:00: 04:59 under the [place] (NOVOLIN 00 :00 skin 2 Medical 70/30 U-100 (two) Branch INSULIN) times 100 unit/mL daily (70-30) before injection breakfast and dinner for 30 days. metoprolol 2020- No [id number] 50mg Take 0.5 Univers succinate 4- 05-13 tablets by ity of XL 100 mg 00:00: 04:59 mouth [place] 24 hr 00 :00 daily for Medical tablet 30 days. [place] glipiZIDE 2020- No [id number] 10mg Take 1 Univers 10 mg - 05-13 tablet by ity of tablet 00:00: 04:59 mouth 2 [place] 00 :00 (two) Medical times [place] daily before breakfast and dinner for 30 days. SITagliptin 2020- No [id number] 100mg Take 1 [facility] 100 mg 4- 05-13 tablet by ity of tablet 00:00: 04:59 mouth [place] 00 :00 evening Medical meal for [place] 30 days. metoprolol No [id number] 50mg Take 0.5 Univers succinate 4- 05-13 tablets by ity of XL 100 mg 00:00: 04:59 mouth [place] 24 hr 00 :00 daily for Medical tablet 30 days. [place] SITagliptin 2020- No [id number] 100mg Take 1 [facility] 100 mg 4- 05-13 tablet by ity of tablet 00:00: 04:59 mouth [place] 00 :00 evening Medical meal for Branch 30 days. metoprolol 2020- No [id number] 50mg Take 0.5 Univers succinate 4-12 05-13 tablets by ity of XL 100 mg 00:00: 04:59 mouth [place] 24 hr 00 :00 daily for Medical tablet 30 days. [place] SITagliptin 2020- No [id number] 100mg Take 1 [facility] 100 mg 4-12 05-13 tablet by ity of tablet 00:00: 04:59 mouth [place] 00 :00 evening Medical meal for Branch 30 days. metoprolol 2020- No [id number] 50mg Take 0.5 Univers succinate 4- 05-13 tablets by ity of XL 100 mg 00:00: 04:59 mouth [place] 24 hr 00 :00 daily for Medical tablet 30 days. Branch metoprolol 2020- No [id number] 50mg Take 0.5 Univers succinate 4- 05-13 tablets by ity of XL 100 mg 00:00: 04:59 mouth [place] 24 hr 00 :00 daily for Medical tablet 30 days. Branch metoprolol 2020- No Coronary 50mg Take 0.5 Univers succinate -05 02-13 artery tablets by i ty of XL 100 mg 00:00: 04:59 disease mouth [place] 24 [place] 00 :00 involving daily for Medi [place] tablet [place] 30 days. Branch coronary artery of [place] heart without angina pectoris SITagliptin 2020- No Uncontrolle 100mg Take 1 [facility] 100 mg - 05-13 d type 2 tablet by ity of tablet 00:00: 04:59 diabetes mouth with [place] 00 :00 mellitus evening Medical with meal for Branch hyperglycem 30 days. ia metoprolol 2020- No Coronary 50mg Take 0.5 Univers succinate 09-07-13 artery tablets by i ty of XL 100 mg 00:00: 04:59 disease mouth [place] 24 hr 00 :00 involving daily for Medi [place] tablet [place] 30 days. Branch coronary artery of [place] heart without angina pectoris SITagliptin 2020- No Uncontrolle 100mg Take 1 [facility] 100 mg 4- 05-13 d type 2 tablet by ity of tablet 00:00: 04:59 diabetes mouth with [place] 00 :00 mellitus evening Medical with meal for Branch hyperglycem 30 days. ia SITagliptin 2020- No [id number] 100mg Take 1 [facility] 100 mg 4-12 05-12 tablet by ity of tablet 00:00: 00:00 mouth [place] 00 :00 evening Medical meal for Branch 30 days. SITagliptin 2020- No [id number] 100mg Take 1 [facility] 100 mg 4-12 05-12 tablet by ity of tablet 00:00: 00:00 mouth [place] 00 :00 evening Medical meal for Branch 30 days. insulin NPH 2020- No [id number] 90U inject 90 Univers and regular 4-12 05-06 Units ity of human 70-30 00:00: 00:00 under the [place] (NOVOLIN 00 :00 skin 2 Medical 70/30 U-100 (two) Branch INSULIN) times 100 unit/mL daily (70-30) before injection breakfast and dinner for 30 days. glipiZIDE 2020- No [id number] 10mg Take 1 [facility] 10 mg 4-12 05-06 tablet by ity of tablet 00:00: 00:00 mouth 2 [place] 00 :00 (two) Medical times Branch daily before breakfast and dinner for 30 days. insulin NPH 2020- No [id number] 90U inject 90 Univers and regular 4-12 05-06 Units ity of human 70-30 00:00: 00:00 under the [place] (NOVOLIN 00 :00 skin 2 Medical 70/30 U-100 (two) Branch INSULIN) times 100 unit/mL daily (70-30) before injection breakfast and dinner for 30 days. glipiZIDE 2020- No [id number] 10mg Take 1 Univers 10 mg 4- 05-06 tablet by ity of tablet 00:00: 00:00 mouth 2 [place] 00 :00 (two) Medical times Branch daily before breakfast and dinner for 30 days. 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 lactobacill 2020- No [id number] 1{tbl} Take 1 Univers us 09-07-23 tablet by ity of acidophilus 00:00: 04:59 mouth 2 [place] 25 million 00 :00 (two) Medical cell -100 times Branch mg captab daily for 10 days. lactobacill 2020- No [id number] 1{tbl} Take 1 [facility] us 09-0723 tablet by ity of acidophilus 00:00: 04:59 mouth 2 [place] 25 million 00 :00 (two) Medical cell -100 times Branch mg captab daily for 10 days. lactobacill 2020- No [id number] 1{tbl} Take 1 [facility] us 09-0723 tablet by ity of acidophilus 00:00: 04:59 mouth 2 [place] 25 million 00 :00 (two) Medical cell -100 times Branch mg captab daily for 10 days. metroNIDAZO 2020- No [id number] 500mg Take 1 Univers LE 500 mg 09-07 tablet by ity of tablet 00:00: 04:59 mouth 2 [place] 00 :00 (two) Medical times Branch daily for 6 days. ciprofloxac 2020- No [id number] 750mg Take 1 Univers in HCl 750 09-07 tablet by ity of mg tablet 00:00: 04:59 mouth [place] 00 :00 every 12 Medical (twelve) Branch hours for 6 days. metroNIDAZO 2020- No [id number] 500mg Take 1 Univers LE 500 mg 09-07 tablet by ity of tablet 00:00: 04:59 mouth 2 [place] 00 :00 (two) Medical times Branch daily for 6 days. ciprofloxac 2020- No [id number] 750mg Take 1 Univers in HCl 750 09-07 tablet by ity of mg tablet 00:00: 04:59 mouth [place] 00 :00 every 12 Medical (twelve) Branch hours for 6 days. metroNIDAZO 2020- No [id number] 500mg Take 1 Univers LE 500 mg 09-07 tablet by ity of tablet 00:00: 04:59 mouth 2 [place] 00 :00 (two) Medical times [place] daily for 6 days. ciprofloxac 2020- No [id number] 750mg Take 1 Univers in HCl 750 09-07 tablet by ity of mg tablet 00:00: 04:59 mouth [place] 00 :00 every 12 Medical (twelve) Branch hours for 6 days. cosyntropin 2020- No 250ug 250 mcg, Univers (CORTROSYN) 09-06 Slow IV ity of injection 22:45: 22:06 Push, [place] 250 mcg 00 :00 ONCE, 1 Medical dose, [facility] 09/06/20 at 1745, Routine metoprolol Yes 50mg 50 mg, Unive rs succinate 09-06 Oral, ity of XL (TOPROL 14:00: DAILY, [place] XL) tablet 00 First dose Med ical 50 mg (after Branch last modificati on) on [place] 09/06/20 at 0900, Until Discontinu ed, Routine ezetimibe Yes 10mg 10 mg, Univer s (ZETIA) 09-06 Oral, ity of tablet 10 14:00: DAILY, [place] mg 00 First dose Medical on [facility] 09/06/20 at 0900, Until Discontinu ed, Routine fluconazole Yes 150mg 150 mg, Un cali (DIFLUCAN) 09-06 Oral, ity of tablet 150 14:00: Q72H, [place] mg 00 First dose Medical on [facility] 09/06/20 at 0900, Until Discontinu ed, TRANG
Re ason for Anti-Infec tive: Empiric Therapy for Suspected Infection< br>Empiric Therapy Site: Pelvic<br& gt;Duratio n of therapy: 72 hours NaCl 0.9% 2020- No 500mL at 999 Univ ers (NS) bolus 09-06 mL/hr, 500 it y of infusion 06:15: 05:09 mL, IV [place] 500 mL 00 :00 Piggyback, Medical ONCE, 1 Branch dose, 09/06/20 at 0115, STAT magnesium Yes 400mg [...] [place] gram/50 mL 00 :00 dose, Sat [facility] blanquita (8 %) IV 09/05/[address] [facility] h Piggyback 4 2014, g Routine [...] 1000mL at 999 Univ ers ringers IV 09-05- mL/hr, ity of infusion 23:30: 22:28 1,000 mL, [place] 1,000 mL 00 :00 Intravenou Medic al s, ONCE, 1 Branch dose, 09/05/20 at 1830, Routine isosorbide 2020- No 30mg 30 mg, Univ ers mononitrate 09-05 Oral, ity of (IMDUR) 24 17:00: 17:00 ONCE, 1 [place] hr tablet 00 :00 dose, Sat Medic al 30 mg 09/05/20 at Branch 1200, Routine cefTRIAXone 2020- No 1000mg 1,000 mg, Univers (ROCEPHIN) 09-05 IV ity of 1,000 mg in 16:00: 15:59 Piggyback, [place] NaCl 0.9% 00 :00 Q12H ABX, Medic al (NS) 50 mL 14 doses, Bran ch MINI-BAG First dose (after last reorder) on [facility] 09/05/20 at 1100, Last dose on Mon09/11/20 at 2300, 50 mL
Reas on for Anti-Infec tive: Documented Infection< br>Documen anthony Infection Site: Urine
D uration of Therapy: Other (see Comments) enoxaparin Yes 40mg 40 mg, Unive rs (LOVENOX) 4-10 Subcutaneo ity of injection 14:00: us, DAILY, [place] 40 mg 00 First dose Medical on [facility] Branch 09/05/20 at 0900, Until Discontinu ed, Routine pantoprazol Yes 40mg 40 mg, Univ ers e 4-10 Oral, ity of (PROTONIX) 14:00: DAILY, [place] EC tablet 00 First dose Medi [place] 40 mg on [facility] Branch 09/05/20 at 0900, Until Discontinu ed, Routine clopidogreL Yes 75mg 75 mg, Univ ers (PLAVIX) 4-10 Oral, ity of tablet 75 14:00: DAILY, [place] mg 00 First dose Medical on [facility] Branch 09/05/20 at 0900, Until Discontinu ed, Routine metoprolol 2020- No 100mg 100 mg, Un cali succinate 09-05 Oral, ity of XL (TOPROL 14:00: 11:17 DAILY, [place] XL) tablet 00 :33 First dose Med ical 100 mg on [facility] Branch 09/05/20 at 0900, Until Discontinu ed, Routine isosorbide No 30mg 30 mg, Univ ers mononitrate 09-05- Oral, ity of (IMDUR) 24 14:00: 15:58 DAILY, [place] hr tablet 00 :51 First dose Medi [place] 30 mg on [facility] Branch 09/05/20 at 0900, Until Discontinu ed, Routine furosemide No 20mg 20 mg, Univ ers (LASIX) 4 04-10 Oral, ity of tablet 20 14:00: 22:14 DAILY, [place] mg 00 :49 First dose Medical on [facility] 09/05/20 at 0900, Until Discontinu ed, Routine docusate Yes 100mg 100 mg, Unive rs (COLACE) 4-10 Oral, BID, ity o f capsule 100 13:00: First dose [place] mg 00 on [facility] Medical 09/05/20 at Branch 0800, Until Discontinu ed, Routine metFORMIN Yes 1000mg 1,000 mg, U nivers (GLUCOPHAGE 4-10 Oral, BID ity of ) tablet 13:00: MEALS, [place] 1,000 mg 00 First dose Medic al on [facility] Branch 09/05/20 at 0800, Until Discontinu ed, Routine glipiZIDE Yes 10mg 10 mg, Univer s (GLUCOTROL) 4-10 Oral, ity of tablet 10 12:30: BIDAC, [place] mg 00 First dose Medical on [facility] 09/05/20 at 0730, Until Discontinu ed, Routine insulin NPH No 90U 90 Units, Univers and regular 09-0512 Subcutaneo i ty of human 70-30 12:30: 21:48 us, BIDAC, [place] (HUMULIN 00 :25 First dose Medic al 70-30 U-100 (after Branch INSULIN) last 100 unit/mL modificati (70-30) on) on [facility] injection 09/05/20 at 90 Units 0730, Until Discontinu ed, Routine NaCl 0.9% IV Univers (NS) 1000 09-05 Infusion, ity of mL + KCL 20 10:30: 00:35 at 100 [place] mEq 00 :40 mL/hr, Medical CONTINUOUS Branch , Starting 09/05/20 at 0530, Until 09/05/20 at 1935, Routine fluconazole 2020- No 200mg at 100 Un cali (DIFLUCAN) 4-10 04-10 mL/hr, IV ity of Piggy[place] 10:30: 11:16 [place], [place] 200 mg 00 :00 ONCE, 1 Medical dose, Sat Branch 09/05/20 at 0530, TRANG NaCl 0.9% 2020- No 500mL at 999 Univ ers (NS) bolus 4-10 04-10 mL/hr, 500 [...] 4-10 Oral, ity of (TYLENOL 09:31: TIDPRN, [place] #3) 300-30 12 Starting Medic al mg tablet 2 Sat Branch tablet 09/05/20 at 0431, Until Discontinu ed, Routine, Pain (scale 4-6) Sliding Yes Subcutaneo [facility] ers Scale 4-10 us, TID ity of Insulin - 09:30: MEALS+HS, [place] Lispro 00 First dose Medical (HumaLOG) + on Sat Branch [facility] 09/05/20 at Testing 0430, Until Discontinu ed, Routine gabapentin 0 Yes 800mg 800 mg, Uni vers (NEURONTIN) 4-10 Oral, TID, it y of tablet 800 09:30: First dose [place] mg 00 on [facility] Medical 09/05/20 at Branch 0430, Until Discontinu ed, Routine atorvastati Yes 80mg 80 mg, Univ ers n (LIPITOR) 4-10 Oral, QHS, it y of tablet 80 09:30: First dose [place] mg 00 on [facility] 09/05/20 at Branch 0430, Until Discontinu ed, Routine aspirin Yes 81mg 81 mg, Univers chewable 4-10 Oral, QAM ity of tablet 81 09:30: WITH [place] mg 00 BREAKFAST, Medical First dose Branch on 09/05/20 at 0430, Until Discontinu ed, Routine lactobacill Yes 1{tbl} 1 tablet, Univers us 4-10 Oral, BID, ity of acidophilus 09:30: First dose [place] (ACIDOPHILL 00 on Sat Medica l US) 25 09/05/20 at Branch million 0430, cell -100 Until mg captab 1 Discontinu tablet ed, Routine metroNIDAZO 0 202- No 500mg 500 mg, U vern LE (FLAGYL) 4-10 04-17 Oral, BID, i ty of tablet 500 09:30: 00:59 14 doses, [place] mg 00 :00 First dose Medical on Sat Branch 09/05/20 at 0430, Last dose on Mon09/11/20 at 0800, Routine
Reason for Anti-Infec tive: Empiric Therapy for Suspected Infection< br>Empiric Therapy Site: Pelvic
Duration of therapy: 7 days KCL 2020-0 2020- No 20meq 20 mEq, Univers (KLOR-CON 4-10 04-11 Oral, ity of M20) tablet 09:30: 00:06 DAILY, [place] as 20 mEq 00 :22 First dose Medical on [facility] Branch 09/05/20 at 0430, Until Discontinu ed, Routine ondansetron Yes 4mg 4 mg, Slow Univers (ZOFRAN 4-10 IV Push, ity of (PF)) 09:29: Q6HPRN, [place] injection 4 42 Starting Medi blanquita mg [facility] 09/05/20 at 0429, Until Discontinu ed, Routine, Nausea and Vomiting (N/V) glucagon Yes 1mg 1 mg, Univers (GLUCAGEN 4-10 Intramuscu ity of DIAGNOSTIC 09:28: [place], PRN, [place] KIT) 38 Starting Medical injection 1 [facility] [place] 09/05/20 at 0428, Until Discontinu ed, TRANG, Blood Glucose < or = 70 mg/dL and patient is unable to swallow or has mental changes. dextrose 50 0 Yes 25mL 25 mL, Univ ers % [...] of 1,000 mg in 05:15: 04:49 Piggyback, [place] NaCl 0.9% 00 :00 ONCE, 1 Medical (NS) 50 mL dose, Sat Bran ch MINI-BAG 09/05/20 at 0015, 50 mL
Reas on for Anti-Infec tive: Documented Infection< br>Documen anthony Infection Site: Urine
D uration of Therapy: Other (see Comments) insulin 2020- No 18U 18 Units, Univ ers regular 09-05-10 Subcutaneo ity o f human 04:30: 03:27 , ONCE, [place] (HUMULIN R) 00 :00 1 dose, Medic al injection 09/04/20 Bran ch 18 Units at 2330, Routine atorvastati Yes [id number] 80mg Take 1 [facility] n 80 mg 3-10 tablet by ity of tablet 00:00: mouth at [place] [address] bedtime. Medical Branch atorvastati Yes [id number] 80mg Take 1 [facility] n 80 mg 3-10 tablet by ity of tablet 00:00: mouth at [place] [address] bedtime. Medical Branch atorvastati Yes [id number] 80mg Take 1 [facility] n 80 mg 3-10 tablet by ity of tablet 00:00: mouth at [place] [address] bedtime. Medical Branch atorvastati Yes [id number] 80mg Take 1 [facility] n 80 mg 3-10 tablet by ity of tablet 00:00: mouth at [place] [address] bedtime. Medical Branch atorvastati Yes [id number] 80mg Take 1 [facility] n 80 mg 3-10 tablet by ity of tablet 00:00: mouth at [place] [address] bedtime. Medical Branch atorvastati 2020- No [id number] 80mg Take 1 [facility] n 80 mg 3-10 04-12 tablet by ity of tablet 00:00: 00:00 mouth at [place] 00 :00 bedtime. Medical Branch METFORMIN 2021-0 Yes TAKE 2 Univer s [...] DAILY WITH Branch MEALS isosorbide 2021-0 Yes [id number] 30mg Take 1 [facility] mononitrate 1-11 tablet by ity of 30 mg 24 hr 00:00: mouth [place] tablet 00 daily. Medical Branch metoprolol 1-0 Yes [id number] 100mg Take 1 [facility] succinate 1-11 tablet by ity o f XL 100 mg 00:00: mouth [place] 24 hr 00 daily. Medical tablet Branch pantoprazol Yes [id number] 40mg Take 1 [facility] e 40 mg EC 1-11 tablet by ity of tablet 00:00: mouth [place] 00 daily. Medical Branch isosorbide 0 Yes [id number] 30mg Take 1 [facility] mononitrate 1-11 tablet by ity of 30 mg 24 hr 00:00: mouth [place] tablet 00 daily. Medical Branch metoprolol Yes [id number] 100mg Take 1 [facility] succinate 1-11 tablet by ity o f XL 100 mg 00:00: mouth [place] 24 hr 00 daily. Medical tablet Branch pantoprazol Yes [id number] 40mg Take 1 [facility] e 40 mg EC 1-11 tablet by ity of tablet 00:00: mouth [place] 00 daily. Medical Branch isosorbide Yes [id number] 30mg Take 1 [facility] mononitrate 1-11 tablet by ity of 30 mg 24 hr 00:00: mouth [place] tablet 00 daily. Medical Branch metoprolol Yes [id number] 100mg Take 1 [facility] succinate 1-11 tablet by ity o f XL 100 mg 00:00: mouth [place] 24 hr 00 daily. Medical tablet Branch pantoprazol Yes [id number] 40mg Take 1 [facility] e 40 mg EC 1-11 tablet by ity of tablet 00:00: mouth [place] 00 daily. Medical Branch isosorbide Yes [id number] 30mg Take 1 [facility] mononitrate 1-11 tablet by ity of 30 mg 24 hr 00:00: mouth [place] tablet 00 daily. Medical Branch metoprolol Yes [id number] 100mg Take 1 [facility] succinate 1-11 tablet by ity o f XL 100 mg 00:00: mouth [place] 24 hr 00 daily. Medical tablet Branch pantoprazol Yes [id number] 40mg Take 1 [facility] e 40 mg EC 1-11 tablet by ity of tablet 00:00: mouth [place] 00 daily. Medical Branch isosorbide Yes [id number] 30mg Take 1 [facility] mononitrate 1-11 tablet by ity of 30 mg 24 hr 00:00: mouth [place] tablet 00 daily. Medical Branch metoprolol Yes [id number] 100mg Take 1 [facility] succinate 1-11 tablet by ity o f XL 100 mg 00:00: mouth [place] 24 hr 00 daily. Medical tablet Branch pantoprazol Yes [id number] 40mg Take 1 [facility] e 40 mg EC 1-11 tablet by ity of tablet 00:00: mouth [place] 00 daily. Medical Branch isosorbide Yes [id number] 30mg Take 1 [facility] mononitrate 1-11 tablet by ity of 30 mg 24 hr 00:00: mouth [place] tablet 00 daily. Medical Branch metoprolol Yes [id number] 100mg Take 1 [facility] succinate 1-11 tablet by ity o f XL 100 mg 00:00: mouth [place] 24 hr 00 daily. Medical tablet Branch pantoprazol Yes [id number] 40mg Take 1 [facility] e 40 mg EC 1-11 tablet by ity of tablet 00:00: mouth [place] 00 daily. Medical Branch isosorbide Yes [id number] 30mg Take 1 [facility] mononitrate 1-11 tablet by ity of 30 mg 24 hr 00:00: mouth [place] tablet 00 daily. Medical Branch metoprolol Yes [id number] 100mg Take 1 [facility] succinate 1-11 tablet by ity o f XL 100 mg 00:00: mouth [place] 24 hr 00 daily. Medical tablet Branch pantoprazol Yes [id number] 40mg Take 1 [facility] e 40 mg EC 1-11 tablet by ity of tablet 00:00: mouth [place] 00 daily. Medical Branch isosorbide Yes [id number] 30mg Take 1 [facility] mononitrate 1-11 tablet by ity of 30 mg 24 hr 00:00: mouth [place] tablet 00 daily. Medical Branch metoprolol Yes [id number] 100mg Take 1 [facility] succinate 1-11 tablet by ity o f XL 100 mg 00:00: mouth [place] 24 hr 00 daily. Medical tablet Branch pantoprazol Yes [id number] 40mg Take 1 [facility] e 40 mg EC 1-11 tablet by ity of tablet 00:00: mouth [place] 00 daily. Medical Branch isosorbide Yes [id number] 30mg Take 1 [facility] mononitrate 1-11 tablet by ity of 30 mg 24 hr 00:00: mouth [place] tablet 00 daily. Medical Branch metoprolol 0 Yes [id number] 100mg Take 1 [facility] succinate 1-11 tablet by ity o f XL 100 mg 00:00: mouth [place] 24 hr 00 daily. Medical tablet Branch pantoprazol Yes [id number] 40mg Take 1 [facility] e 40 mg EC 1-11 tablet by ity of tablet 00:00: mouth [place] 00 daily. Medical Branch isosorbide 2020-0 Yes [id number] 30mg Take 1 [facility] mononitrate 1-11 tablet by ity of 30 mg 24 hr 00:00: mouth [place] tablet 00 daily. Medical Branch metoprolol Yes [id number] 100mg Take 1 [facility] succinate 1-11 tablet by ity o f XL 100 mg 00:00: mouth [place] 24 hr 00 daily. Medical tablet Branch pantoprazol Yes [id number] 40mg Take 1 [facility] e 40 mg EC 1-11 tablet by ity of tablet 00:00: mouth [place] 00 daily. Medical Branch isosorbide 2020-0 Yes [id number] 30mg Take 1 [facility] mononitrate 1-11 tablet by ity of 30 mg 24 hr 00:00: mouth [place] tablet 00 daily. Medical Branch metoprolol Yes [id number] 100mg Take 1 [facility] succinate 1-11 tablet by ity o f XL 100 mg 00:00: mouth [place] 24 hr 00 daily. Medical tablet Branch pantoprazol Yes [id number] 40mg Take 1 [facility] e 40 mg EC 1-11 tablet by ity of tablet 00:00: mouth [place] 00 daily. Medical Branch pantoprazol 0 Yes [id number] 40mg Take 1 [facility] e 40 mg EC 1-11 tablet by ity of tablet 00:00: mouth [place] 00 daily. Medical Branch pantoprazol 0 Yes [id number] 40mg Take 1 [facility] e 40 mg EC 1-11 tablet by ity of tablet 00:00: mouth [place] 00 daily. Medical Branch pantoprazol Yes [id number] 40mg Take 1 [facility] e 40 mg EC 1-11 tablet by ity of tablet 00:00: mouth [place] 00 daily. Medical Branch pantoprazol Yes [id number] 40mg Take 1 [facility] e 40 mg EC 1-11 tablet by ity of tablet 00:00: mouth [place] 00 daily. Medical Branch pantoprazol Yes [id number] 40mg Take 1 [facility] e 40 mg EC 1-11 tablet by ity of tablet 00:00: mouth [place] 00 daily. Medical Branch pantoprazol Yes [id number] 40mg Take 1 [facility] e 40 mg EC 1-11 tablet by ity of tablet 00:00: mouth [place] 00 daily. Medical Branch pantoprazol Yes [id number] 40mg Take 1 [facility] e 40 mg EC 1-11 tablet by ity of tablet 00:00: mouth [place] 00 daily. Medical Branch pantoprazol Yes [id number] 40mg Take 1 [facility] e 40 mg EC 1-11 tablet by ity of tablet 00:00: mouth [place] 00 daily. Medical Branch pantoprazol Yes [id number] 40mg Take 1 [facility] e 40 mg EC 1-11 tablet by ity of tablet 00:00: mouth [place] 00 daily. Medical Branch pantoprazol Yes [id number] 40mg Take 1 [facility] e 40 mg EC 1-11 tablet by ity of tablet 00:00: mouth [place] 00 daily. Medical Branch pantoprazol Yes [id number] 40mg Take 1 [facility] e 40 mg EC 1-11 tablet by ity of tablet 00:00: mouth [place] 00 daily. Medical Branch pantoprazol Yes [id number] 40mg Take 1 [facility] e 40 mg EC 1-11 tablet by ity of tablet 00:00: mouth [place] 00 daily. Medical Branch pantoprazol Yes [id number] 40mg Take 1 [facility] e 40 mg EC 1-11 tablet by ity of tablet 00:00: mouth [place] 00 daily. Medical Branch pantoprazol Yes [id number] 40mg Take 1 [facility] e 40 mg EC 1-11 tablet by ity of tablet 00:00: mouth [place] 00 daily. Medical Branch pantoprazol Yes [id number] 40mg Take 1 [facility] e 40 mg EC 1-11 tablet by ity of tablet 00:00: mouth [place] 00 daily. Medical Branch pantoprazol Yes [id number] 40mg Take 1 [facility] e 40 mg EC 1-11 tablet by ity of tablet 00:00: mouth [place] 00 daily. Medical Branch pantoprazol Yes [id number] 40mg Take 1 [facility] e 40 mg EC 1-11 tablet by ity of tablet 00:00: mouth [place] 00 daily. Medical Branch pantoprazol Yes [id number] 40mg Take 1 [facility] e 40 mg EC 1-11 tablet by ity of tablet 00:00: mouth [place] 00 daily. Medical Branch pantoprazol Yes [id number] 40mg Take 1 [facility] e 40 mg EC 1-11 tablet by ity of tablet 00:00: mouth [place] 00 daily. Medical Branch pantoprazol Yes [id number] 40mg Take 1 [facility] e 40 mg EC 1-11 tablet by ity of tablet 00:00: mouth [place] 00 daily. Medical Branch pantoprazol Yes [id number] 40mg Take 1 [facility] e 40 mg EC 1-11 tablet by ity of tablet 00:00: mouth [place] 00 daily. Medical Branch pantoprazol Yes [id number] 40mg Take 1 [facility] e 40 mg EC 1-11 tablet by ity of tablet 00:00: mouth [place] 00 daily. Medical Branch pantoprazol Yes [id number] 40mg Take 1 [facility] e 40 mg EC 1-11 tablet by ity of tablet 00:00: mouth [place] 00 daily. Medical Branch pantoprazol Yes [id number] 40mg Take 1 [facility] e 40 mg EC 1-11 tablet by ity of tablet 00:00: mouth [place] 00 daily. Medical Branch pantoprazol Yes [id number] 40mg Take 1 [facility] e 40 mg EC 1-11 tablet by ity of tablet 00:00: mouth [place] 00 daily. Medical Branch pantoprazol Yes [id number] 40mg Take 1 [facility] e 40 mg EC 1-11 tablet by ity of tablet 00:00: mouth [place] 00 daily. Medical Branch pantoprazol Yes [id number] 40mg Take 1 [facility] e 40 mg EC 1-11 tablet by ity of tablet 00:00: mouth [place] 00 daily. Medical Branch pantoprazol Yes [id number] 40mg Take 1 [facility] e 40 mg EC 1-11 tablet by ity of tablet 00:00: mouth [place] 00 daily. Medical Branch pantoprazol Yes [id number] 40mg Take 1 [facility] e 40 mg EC 1-11 tablet by ity of tablet 00:00: mouth [place] 00 daily. Medical Branch pantoprazol Yes [id number] 40mg Take 1 [facility] e 40 mg EC 1-11 tablet by ity of tablet 00:00: mouth [place] 00 daily. Medical Branch pantoprazol Yes [id number] 40mg Take 1 [facility] e 40 mg EC 1-11 tablet by ity of tablet 00:00: mouth [place] 00 daily. Medical Branch pantoprazol Yes [id number] 40mg Take 1 [facility] e 40 mg [...] disease daily. Medical Branch isosorbide 2020- No [id number] 30mg Take 1 [facility] mononitrate 06-08-12 tablet by it y of 30 mg 24 hr 00:00: 00:00 [place] tablet 00 :00 daily. Medical Branch metoprolol 2020- No [id number] 100mg Take 1 [facility] succinate -04 01-12 tablet by ity of XL 100 mg 00:00: 00:00 mouth [place] 24 hr 00 :00 daily. Medical tablet Branch methocarbam Yes [id number] 500mg Take 1 [facility] oL 500 mg 1-08 tablet by ity o f tablet 00:00: mouth 4 [place] 00 (four) Medical times Branch daily as needed (muscle spasm). isosorbide Yes [id number] 30mg Take 1 [facility] mononitrate 1-08 tablet by ity of 30 mg 24 hr 00:00: mouth [place] tablet 00 daily. Medical Branch potassium Yes [id number] 10meq Take 1 U nivers chloride 10 1-08 tablet by ity of mEq CR 00:00: mouth [place] tablet 00 daily. Medical Branch methocarbam 2021-0 Yes [id number] 500mg Take 1 [facility] oL 500 mg 1-08 tablet by ity o f tablet 00:00: mouth 4 [place] 00 (four) Medical times Branch daily as needed (muscle spasm). potassium 2020-0 Yes [id number] 10meq Take 1 U nivers chloride 10 1-08 tablet by ity of mEq CR 00:00: mouth [place] tablet 00 daily. Medical Branch methocarbam Yes [id number] 500mg Take 1 [facility] oL 500 mg 1-08 tablet by ity o f tablet 00:00: mouth 4 [place] 00 (four) Medical times Branch daily as needed (muscle spasm). potassium 2020-0 Yes [id number] 10meq Take 1 U nivers chloride 10 1-08 tablet by ity of mEq CR 00:00: mouth [place] tablet 00 daily. Medical Branch methocarbam Yes [id number] 500mg Take 1 [facility] oL 500 mg 1-08 tablet by ity o f tablet 00:00: mouth 4 [place] 00 (four) Medical times Branch daily as needed (muscle spasm). potassium Yes [id number] 10meq Take 1 U nivers chloride 10 1-08 tablet by ity of mEq CR 00:00: mouth [place] tablet 00 daily. Medical Branch methocarbam Yes [id number] 500mg Take 1 [facility] oL 500 mg 1-08 tablet by ity o f tablet 00:00: mouth 4 [place] 00 (four) Medical times Branch daily as needed (muscle spasm). potassium 0 Yes [id number] 10meq Take 1 U nivers chloride 10 1-08 tablet by ity of mEq CR 00:00: mouth [place] tablet 00 daily. Medical Branch methocarbam Yes [id number] 500mg Take 1 [facility] oL 500 mg 1-08 tablet by ity o f tablet 00:00: mouth 4 [place] 00 (four) Medical times Branch daily as needed (muscle spasm). potassium 0 Yes [id number] 10meq Take 1 U nivers chloride 10 1-08 tablet by ity of mEq CR 00:00: mouth [place] tablet 00 daily. Medical Branch methocarbam Yes [id number] 500mg Take 1 [facility] oL 500 mg 1-08 tablet by ity o f tablet 00:00: mouth 4 [place] 00 (four) Medical times Branch daily as needed (muscle spasm). potassium Yes [id number] 10meq Take 1 U nivers chloride 10 1-08 tablet by ity of mEq CR 00:00: mouth [place] tablet 00 daily. Medical Branch methocarbam Yes [id number] 500mg Take 1 [facility] oL 500 mg 1-08 tablet by ity o f tablet 00:00: mouth 4 [place] 00 (four) Medical times Branch daily as needed (muscle spasm). potassium Yes [id number] 10meq Take 1 U nivers chloride 10 1-08 tablet by ity of mEq CR 00:00: mouth [place] tablet 00 daily. Medical Branch methocarbam Yes [id number] 500mg Take 1 [facility] oL 500 mg 1-08 tablet by ity o f tablet 00:00: mouth 4 [place] 00 (four) Medical times Branch daily as needed (muscle spasm). potassium Yes [id number] 10meq Take 1 U nivers chloride 10 1-08 tablet by ity of mEq CR 00:00: mouth [place] tablet 00 daily. Medical Branch potassium Yes [id number] 10meq Take 1 U nivers chloride 10 1-08 tablet by ity of mEq CR 00:00: mouth [place] tablet 00 daily. Medical Branch potassium Yes [id number] 10meq Take 1 U nivers chloride 10 1-08 tablet by ity of mEq CR 00:00: mouth [place] tablet 00 daily. Medical Branch potassium Yes [id number] 10meq Take 1 U nivers chloride 10 1-08 tablet by ity of mEq CR 00:00: mouth [place] tablet 00 daily. Medical Branch potassium 2020- No [id number] 10meq Take 1 [facility] chloride 10 1-08 -12 tablet by it y of mEq CR 00:00: 00:00 mouth [place] tablet 00 :00 daily. [facility] Branch methocarbam 2020- No [id number] 500mg Take 1 [facility] oL 500 mg -08 -09 tablet by ity of tablet 00:00: 00:00 mouth 4 [place] 00 :00 (four) Medical times Branch daily as needed (muscle spasm). methocarbam 2020- No [id number] 500mg Take 1 [facility] oL 500 mg -08 04-09 tablet by ity of tablet 00:00: 00:00 mouth 4 [place] 00 :00 (four) Medical times Branch daily as needed (muscle spasm). isosorbide 2020-0 2021- No [id number] 30mg Take 1 [facility] mononitrate 06-05 tablet by it y of 30 mg 24 hr 00:00: 00:00 mouth [place] tablet 00 :00 daily. Medical Branch gabapentin 2020-1 Yes [id number] 800mg Take 1 [facility] 800 mg 2-22 tablet by ity of tablet 00:00: mouth 3 (three) Medical times Branch daily. gabapentin 2020-1 Yes [id number] 800mg Take 1 [facility] 800 mg 2-22 tablet by ity of tablet 00:00: mouth 3 (three) Medical times Branch daily. gabapentin 2020-1 Yes [id number] 800mg Take 1 [facility] 800 mg 2-22 tablet by ity of tablet 00:00: mouth 3 (three) Medical times Branch daily. gabapentin 2020-1 Yes [id number] 800mg Take 1 [facility] 800 mg 2-22 tablet by ity of tablet 00:00: mouth 3 (three) Medical times Branch daily. gabapentin 2020-1 Yes [id number] 800mg Take 1 [facility] 800 mg 2-22 tablet by ity of tablet 00:00: mouth 3 (three) Medical times Branch daily. gabapentin 2020-1 Yes [id number] 800mg Take 1 [facility] 800 mg 2-22 tablet by ity of tablet 00:00: mouth 3 (three) Medical times Branch daily. gabapentin 2020-1 Yes [id number] 800mg Take 1 [facility] 800 mg 2-22 tablet by ity of tablet 00:00: mouth 3 (three) Medical times Branch daily. gabapentin 2020-1 Yes [id number] 800mg Take 1 [facility] 800 mg 2-22 tablet by ity of tablet 00:00: mouth 3 (three) Medical times Branch daily. gabapentin 2020-1 Yes [id number] 800mg Take 1 [facility] 800 mg 2-22 tablet by ity of tablet 00:00: mouth 3 (three) Medical times Branch daily. gabapentin 2020-1 Yes [id number] 800mg Take 1 [facility] 800 mg 2-22 tablet by ity of tablet 00:00: mouth 3 (three) Medical times Branch daily. gabapentin 2020-1 Yes [id number] 800mg Take 1 [facility] 800 mg 2-22 tablet by ity of tablet 00:00: mouth 3 (three) Medical times Branch daily. gabapentin 2020-1 Yes [id number] 800mg Take 1 [facility] 800 mg 2-22 tablet by ity of tablet 00:00: mouth 3 (three) Medical times Branch daily. gabapentin 2020-1 Yes [id number] 800mg Take 1 [facility] 800 mg 2-22 tablet by ity of tablet 00:00: mouth 3 (three) Medical times Branch daily. gabapentin 2020-1 Yes [id number] 800mg Take 1 [facility] 800 mg 2-22 tablet by ity of tablet 00:00: mouth 3 (three) Medical times Branch daily. gabapentin 2020-1 Yes [id number] 800mg Take 1 [facility] 800 mg 2-22 tablet by ity of tablet 00:00: mouth (three) Medical times Branch daily. gabapentin 2020-1 Yes [id number] 800mg Take 1 [facility] 800 mg 2-22 tablet by ity of tablet 00:00: mouth (three) Medical times Branch daily. gabapentin 2020-1 Yes [id number] 800mg Take 1 [facility] 800 mg 2-22 tablet by ity of tablet 00:00: mouth (three) Medical times Branch daily. gabapentin 2020-1 Yes [id number] 800mg Take 1 [facility] 800 mg 2-22 tablet by ity of tablet 00:00: mouth (three) Medical times Branch daily. gabapentin 2020-1 Yes [id number] 800mg Take 1 [facility] 800 mg 2-22 tablet by ity of tablet 00:00: mouth (three) Medical times Branch daily. gabapentin 2020-1 Yes [id number] 800mg Take 1 [facility] 800 mg 2-22 tablet by ity of tablet 00:00: mouth 3 (three) Medical times Branch daily. gabapentin 2020-1 Yes [id number] 800mg Take 1 [facility] 800 mg 2-22 tablet by ity of tablet 00:00: mouth 3 (three) Medical times Branch daily. gabapentin 2020-1 Yes [id number] 800mg Take 1 [facility] 800 mg 2-22 tablet by ity of tablet 00:00: mouth 3 (three) Medical times Branch daily. gabapentin 2020-1 Yes [id number] 800mg Take 1 [facility] 800 mg 2-22 tablet by ity of tablet 00:00: mouth 3 (three) Medical times Branch daily. gabapentin 2020-1 Yes [id number] 800mg Take 1 [facility] 800 mg 2-22 tablet by ity of tablet 00:00: mouth 3 (three) Medical times Branch daily. gabapentin 2020-1 Yes [id number] 800mg Take 1 [facility] 800 mg 2-22 tablet by ity of tablet 00:00: mouth (three) Medical times Branch daily. gabapentin 2020-1 Yes [id number] 800mg Take 1 [facility] 800 mg 2-22 tablet by ity of tablet 00:00: mouth (three) Medical times Branch daily. gabapentin 2020-1 Yes [id number] 800mg Take 1 [facility] 800 mg 2-22 tablet by ity of tablet 00:00: mouth (three) Medical times Branch daily. gabapentin 2020-1 Yes [id number] 800mg Take 1 [facility] 800 mg 2-22 tablet by ity of tablet 00:00: mouth (three) Medical times Branch daily. gabapentin 2020-1 Yes [id number] 800mg Take 1 [facility] 800 mg 2-22 tablet by ity of tablet 00:00: mouth (three) Medical times Branch daily. gabapentin 2020-1 Yes [id number] 800mg Take 1 [facility] 800 mg 2-22 tablet by ity of tablet 00:00: mouth (three) Medical times Branch daily. gabapentin 2020-1 Yes [id number] 800mg Take 1 [facility] 800 mg 2-22 tablet by ity of tablet 00:00: mouth (three) Medical times Branch daily. gabapentin 2019-1 Yes Neuropathy 800mg Take 1 [facility] 800 mg 2-22 tablet by ity of tablet 00:00: mouth 3 (three) Medical times Branch daily. gabapentin 2020-1 Yes Neuropathy 800mg Take 1 [facility] 800 mg 2-22 tablet by ity of tablet 00:00: mouth 3 (three) Medical times Branch daily. gabapentin 2019-2020- No [id number] 800mg Take 1 [facility] 800 mg 2-22 07-23 tablet by ity of tablet 00:00: 00:00 mouth 3 [place] 00 :00 (three) Medical times Branch daily. methocarbam 2020- Yes [id number] 500mg Take 1 [facility] oL 500 mg 2-11 tablet by ity o f tablet 00:00: mouth 4 (four) Medical times Branch daily as needed (muscle spasm). methocarbam 2019-05 Yes [id number] 500mg Take 1 [facility] oL 500 mg 2-11 tablet by ity o f tablet 00:00: mouth 4 (four) Medical times Branch daily as needed (muscle spasm). methocarbam 2019-05 Yes [id number] 500mg Take 1 [facility] oL 500 mg 2-11 tablet by ity o f tablet 00:00: mouth 4 (four) Medical times Branch daily as needed (muscle spasm). methocarbam 2019-05 Yes [id number] 500mg Take 1 [facility] oL 500 mg 2-11 tablet by ity o f tablet 00:00: mouth (four) Medical times Branch daily as needed (muscle spasm). methocarbam 2019-05 Yes [id number] 500mg Take 1 [facility] oL 500 mg 2-11 tablet by ity o f tablet 00:00: mouth (four) Medical times Branch daily as needed (muscle spasm). methocarbam 2019-05 Yes [id number] 500mg Take 1 [facility] oL 500 mg 2-11 tablet by ity o f tablet 00:00: mouth (four) Medical times Branch daily as needed (muscle spasm). methocarbam 2019-05 Yes [id number] 500mg Take 1 [facility] oL 500 mg 2-11 tablet by ity o f tablet 00:00: mouth (four) Medical times Branch daily as needed (muscle spasm). methocarbam 2019-05- No [id number] 500mg Take 1 [facility] oL 500 mg 2-11 -08 tablet by ity of tablet 00:00: 00:00 mouth 4 [place] 00 :00 (four) Medical times Branch daily as needed (muscle spasm). PANTOPRAZOL 2019-05 Yes [id number] TAKE 1 [facility] E 40 mg EC 1-18 TABLET BY ity of tablet 00:00: MOUTH ONCE 00 DAILY DO Medical NOT CRUSH Branch OR CHEW FUROSEMIDE 2019-05 Yes [id number] Take 1 U nivers 20 mg 1-18 tablet by ity of tablet 00:00: mouth once 00 daily Medical Branch POTASSIUM 2019-05 Yes [id number] Take 1 [facility] [place] CHLORIDE 10 1-18 tablet by ity of mEq CR 00:00: mouth once [place] tablet 00 daily Medical Branch PANTOPRAZOL 2020- Yes [id number] TAKE 1 [facility] E 40 mg EC 1-18 TABLET BY ity of tablet 00:00: MOUTH ONCE [place] 00 DAILY DO Medical NOT CRUSH Branch OR CHEW FUROSEMIDE 2020- Yes [id number] Take 1 U nivers 20 mg 1-18 tablet by ity of tablet 00:00: mouth once [place] 00 daily Medical Branch POTASSIUM 2020- Yes [id number] Take 1 [facility] [place] CHLORIDE 10 1-18 tablet by ity of mEq CR 00:00: mouth once [place] tablet 00 daily Medical Branch PANTOPRAZOL 2020- Yes [id number] TAKE 1 [facility] E 40 mg EC 1-18 TABLET BY ity of tablet 00:00: MOUTH ONCE [place] 00 DAILY DO Medical NOT CRUSH Branch OR CHEW FUROSEMIDE 2020- Yes [id number] Take 1 U nivers 20 mg 1-18 tablet by ity of tablet 00:00: mouth once [place] 00 daily Medical Branch POTASSIUM 2020- Yes [id number] Take 1 [facility] [place] CHLORIDE 10 1-18 tablet by ity of mEq CR 00:00: mouth once [place] tablet 00 daily Medical Branch PANTOPRAZOL 2020- Yes [id number] TAKE 1 [facility] E 40 mg EC 1-18 TABLET BY ity of tablet 00:00: MOUTH ONCE [place] 00 DAILY DO Medical NOT CRUSH Branch OR CHEW FUROSEMIDE 2020- Yes [id number] Take 1 U nivers 20 mg 1-18 tablet by ity of tablet 00:00: mouth once [place] 00 daily Medical Branch POTASSIUM 2020- Yes [id number] Take 1 [facility] [place] CHLORIDE 10 1-18 tablet by [facility]Eq CR 00:00: mouth once [place] tablet 00 daily Medical Branch PANTOPRAZOL 2020- Yes [id number] TAKE 1 [facility] 40 mg EC 1-18 TABLET BY [facility] tablet 00:00: MOUTH ONCE [place] 00 DAILY DO Medical NOT CRUSH Branch OR CHEW FUROSEMIDE 2020- Yes [id number] Take 1 [facility] 20 mg 1-18 tablet by [facility] tablet 00:00: mouth once [place] 00 daily Medical [facility] POTASSIUM 2020- Yes [id number] Take 1 [facility] CHLORIDE 10 1-18 tablet by [facility] mEq CR 00:00: mouth once [place] tablet 00 daily Medical [facility] PANTOPRAZOL 2020- Yes [id number] TAKE 1 [facility] E 40 mg EC 1-18 TABLET BY [facility] tablet 00:00: MOUTH ONCE [place] 00 DAILY DO Medical NOT CRUSH Branch OR CHEW FUROSEMIDE 2020- Yes [id number] Take 1 [facility] 20 mg 1-18 tablet by [facility] tablet 00:00: mouth once [place] 00 daily Medical Branch POTASSIUM 2020- Yes [id number] Take 1 [facility] CHLORIDE 10 1-18 tablet by [facility] mEq CR 00:00: mouth once [place] tablet 00 daily Medical [facility] PANTOPRAZOL 2020- Yes [id number] TAKE 1 [facility] E 40 mg EC 1-18 TABLET BY [facility] tablet 00:00: MOUTH ONCE [place] 00 DAILY DO Medical NOT CRUSH Branch OR CHEW FUROSEMIDE 2020- Yes [id number] Take 1 [facility] 20 mg 1-18 tablet by [facility] tablet 00:00: mouth once [place] 00 daily Medical [facility] POTASSIUM 2020- Yes [id number] Take 1 [facility] CHLORIDE 10 1-18 tablet by [facility] mEq CR 00:00: mouth once [place] tablet 00 daily Medical [facility] PANTOPRAZOL 2020- Yes [id number] TAKE 1 [facility] E 40 mg EC 1-18 TABLET BY [facility] tablet 00:00: MOUTH ONCE [place] 00 DAILY DO Medical NOT CRUSH Branch OR CHEW FUROSEMIDE 2020- Yes [id number] Take 1 [facility] 20 mg 1-18 tablet by [facility] tablet 00:00: mouth once [place] 00 daily Medical [facility] POTASSIUM 2020- Yes [id number] Take 1 [facility] CHLORIDE 10 1-18 tablet by [facility] mEq CR 00:00: mouth once [place] tablet 00 daily Medical [facility] PANTOPRAZOL 2020- Yes [id number] TAKE 1 [facility] E 40 mg EC 1-18 TABLET BY [facility] tablet 00:00: MOUTH ONCE [place] 00 DAILY DO Medical NOT CRUSH Branch OR CHEW FUROSEMIDE 2020- Yes [id number] Take 1 [facility] 20 mg 1-18 tablet by [facility] tablet 00:00: mouth once [place] 00 daily Medical Branch FUROSEMIDE 2020- Yes [id number] Take 1 [facility] 20 mg 1-18 tablet by [facility] tablet 00:00: mouth once [place] 00 daily Medical [facility] FUROSEMIDE 2020- Yes [id number] Take 1 [facility] 20 mg 1-18 tablet by [facility] tablet 00:00: mouth once [place] 00 daily Medical Branch FUROSEMIDE 2020- Yes [id number] Take 1 [facility] 20 mg 1-18 tablet by [facility] tablet 00:00: mouth once [place] daily Medical Branch FUROSEMIDE 2019-05 Yes [id number] Take 1 [facility] 20 mg 1-18 tablet by [facility] tablet 00:00: mouth once [place] daily Medical [facility] FUROSEMIDE 2019-05 Yes [id number] Take 1 [facility] 20 mg 1-18 tablet by [facility] tablet 00:00: mouth once [place] daily Medical Branch FUROSEMIDE 2019-05 Yes [id number] Take 1 [facility] 20 mg 1-18 tablet by [facility] tablet 00:00: mouth once [place] daily Medical Branch FUROSEMIDE 2019-05 Yes [id number] Take 1 [facility] 20 mg 1-18 tablet by [facility] of tablet 00:00: mouth once [place] daily Medical Branch FUROSEMIDE 2019-05 Yes [id number] Take 1 [facility] 20 mg 1-18 tablet by [facility] tablet 00:00: mouth once [place] daily Medical Branch FUROSEMIDE 2019-05 Yes [id number] Take 1 [facility] 20 mg 1-18 tablet by [facility] of tablet 00:00: mouth once [place] daily Medical Branch FUROSEMIDE 2019-05 Yes [id number] Take 1 [facility] 20 mg 1-18 tablet by [facility] of tablet 00:00: mouth once [place] daily Medical Branch FUROSEMIDE 2019-05 Yes [id number] Take 1 [facility] 20 mg 1-18 tablet by [facility] tablet 00:00: mouth once [place] daily Medical Branch FUROSEMIDE 2019-05- No [id number] Take 1 [facility] 20 mg 1-18 -12 tablet by [facility] tablet 00:00: 00:00 mouth once [place] 00 :00 daily [facility] PANTOPRAZOL 2019-05- No [id number] TAKE 1 [facility] E 40 mg EC -18 06-08 TABLET BY [facility] tablet 00:00: 00:00 MOUTH ONCE [place] 00 :00 DAILY DO Medical NOT CRUSH Branch OR CHEW POTASSIUM 2019-05- No [id number] Take 1 [facility] CHLORIDE 10 -18 06-05 tablet by [facility] mEq CR 00:00: 00:00 mouth once [place] tablet 00 :00 daily [facility] gabapentin 2019-05 Yes [id number] 800mg Take 1 [facility] 800 mg 1-16 tablet by [facility] tablet 00:00: mouth 3 (three) Medical times Branch daily. gabapentin 2019-05 Yes [id number] 800mg Take 1 [facility] 800 mg 1-16 tablet by [facility] tablet 00:00: mouth 3 00 (three) Medical times Branch daily. gabapentin 2020-1 Yes [id number] 800mg Take 1 [facility] 800 mg 1-16 tablet by [facility] of tablet 00:00: mouth 3 00 (three) Medical times Branch daily. gabapentin 2020-1 Yes [id number] 800mg Take 1 [facility] 800 mg 1-16 tablet by [facility] tablet 00:00: mouth 3 00 (three) Medical times Branch daily. gabapentin 2020-1 Yes [id number] 800mg Take 1 [facility] 800 mg 1-16 tablet by [facility] tablet 00:00: mouth 3 00 (three) Medical times Branch daily. gabapentin 2020-1 Yes [id number] 800mg Take 1 [facility] 800 mg 1-16 tablet by [facility] of tablet 00:00: mouth 3 00 (three) Medical times Branch daily. gabapentin 2020- Yes [id number] 800mg Take 1 [facility] 800 mg 1-16 tablet by [facility] of tablet 00:00: mouth 3 00 (three) Medical times Branch daily. gabapentin 2020-1 Yes [id number] 800mg Take 1 [facility] 800 mg 1-16 tablet by [facility] tablet 00:00: mouth 3 00 (three) Medical times Branch daily. gabapentin 2019- 2020- No [id number] 800mg Take 1 [facility] 800 mg 1-16 12-22 tablet by [facility] of tablet 00:00: 00:00 mouth 3 [place] 00 :00 (three) Medical times Branch daily. Nitrofurant 2019- Yes [id number] 100mg Take 1 [facility] oin&Nit. 1-10 capsule by [facility] o f Macrocryst 00:00: mouth 2 [place] (MACROBID[place] 00 (two) Medical 100 mg times Branch capsule daily. Nitrofurant 2019- Yes [id number] 100mg Take 1 [facility] oin&Nit. 1-10 capsule by [facility] o f Macrocryst 00:00: mouth 2 [place] (MACROBID) 00 (two) Medical 100 mg times Branch capsule daily. Nitrofurant 2019- Yes [id number] 100mg Take 1 [facility] oin&Nit. 1-10 capsule by [facility] o f Macrocryst 00:00: mouth 2 [place] (MACROBID) 00 (two) Medical 100 mg times Branch capsule daily. Nitrofurant 2019-05 Yes [id number] 100mg Take 1 [facility] oin&Nit. 1-10 capsule by [facility] o f Mac[facility]ryst 00:00: mouth 2 [place] (MACROBID[place] 00 (two) Medical 100 mg times Branch capsule daily. Nitrofurant 2019-05 Yes [id number] 100mg Take 1 [facility] oin&Nit. 1-10 capsule by [facility] o [facility]ryst 00:00: mouth 2 [place] (MACROBID) 00 (two) Medical 100 mg times Branch capsule daily. Nitrofurant 2019-05 Yes [id number] 100mg Take 1 [facility] oin&Nit. 1-10 capsule by [facility] o [facility]ryst 00:00: mouth 2 [place] (MACROBID) 00 (two) Medical 100 mg times Branch capsule daily. Nitrofurant 2019-05 Yes [id number] 100mg Take 1 [facility] oin&Nit. 1-10 capsule by [facility] o f Macrocryst 00:00: mouth 2 [place] (MACROBID) 00 (two) Medical 100 mg times Branch capsule daily. Nitrofurant 2019-05 Yes [id number] 100mg Take 1 [facility] oin&Nit. 1-10 capsule by [facility] o f Macrocryst 00:00: mouth 2 [place] (MACROBID) 00 (two) Medical 100 mg times Branch capsule daily. Nitrofurant 2019-05 2020- No [id number] 100mg Take 1 [facility] oin&Nit. 1-10 12-19 capsule by [facility] Macrocryst 00:00: 00:00 mouth 2 [place] (MACROBID) 00 :00 (two) Medical 100 mg times Branch capsule daily. Nitrofurant 2019-05 2020- No [id number] 100mg Take 1 [facility] oin&Nit. 1-10 12-19 [...] for tablet 7 days. metroNIDAZO 2019-05 Yes [id number] 500mg Take 1 [facility] LE 500 mg 1-06 tablet by ity o f tablet 00:00: mouth [place] 00 every 12 Medical (twelve) Branch hours. clotrimazol 2019-05 Yes [id number] Apply to [facility] e-betametha 1-06 area(s) 2 [facility] of sone cream 00:00: (two) [place] 00 times Medical daily. Use Branch for 2 weeks on affected area metroNIDAZO 2019-05 Yes [id number] 500mg Take 1 [facility] LE 500 mg 1-06 tablet by ity o f tablet 00:00: mouth [place] 00 every 12 Medical (twelve) Branch hours. clotrimazol 2019- Yes [id number] Apply to [facility] e-betametha 1-06 area(s) 2 [facility] of sone cream 00:00: (two) [place] 00 times Medical daily. Use Branch for 2 weeks on affected area metroNIDAZO 2019- Yes [id number] 500mg Take 1 [facility] LE 500 mg 1-06 tablet by [facility] o f tablet 00:00: mouth [place] 00 every 12 Medical (twelve) Branch hours. clotrimazol 2019- Yes [id number] Apply to [facility] e-betametha 1-06 area(s) 2 [facility] of sone cream 00:00: (two) [place] 00 times Medical daily. Use Branch for 2 weeks on affected area metroNIDAZO 2019-05 Yes [id number] 500mg Take 1 [facility] LE 500 mg 1-06 tablet by [facility] o f tablet 00:00: mouth [place] 00 every 12 Medical (twelve) Branch hours. clotrimazol 2019- Yes [id number] Apply to [facility] e-betametha 1-06 area(s) 2 [facility] of sone cream 00:00: (two) [place] 00 times Medical daily. Use Branch for 2 weeks on affected area metroNIDAZO 2020- Yes [id number] 500mg Take 1 [facility] LE 500 mg 1-06 tablet by [facility] o f tablet 00:00: mouth [place] 00 every 12 Medical (twelve) Branch hours. clotrimazol 2020- Yes [id number] Apply to [facility] e-betametha 1-06 area(s) 2 [facility] of sone cream 00:00: (two) [place] 00 times Medical daily. Use Branch for 2 weeks on affected area metroNIDAZO 2019-05 Yes [id number] 500mg Take 1 [facility] LE 500 mg 1-06 tablet by ity o f tablet 00:00: mouth [place] 00 every 12 Medical (twelve) Branch hours. clotrimazol 2019- Yes [id number] Apply to [facility] e-betametha 1-06 area(s) 2 [facility] of sone cream 00:00: (two) [place] 00 times Medical daily. Use Branch for 2 weeks on affected area metroNIDAZO 2019-05 Yes [id number] 500mg Take 1 [facility] LE 500 mg 1-06 tablet by ity o f tablet 00:00: mouth [place] 00 every 12 Medical (twelve) Branch hours. clotrimazol 2019- Yes [id number] Apply to [facility] e-betametha 1-06 area(s) 2 [facility]y of sone cream 00:00: (two) [place] 00 times Medical daily. Use Branch for 2 weeks on affected area metroNIDAZO 2019- Yes [id number] 500mg Take 1 [facility] LE 500 mg 1-06 tablet by ity o f tablet 00:00: mouth [place] 00 every 12 Medical (twelve) Branch hours. clotrimazol 2020- Yes [id number] Apply to [facility] e-betametha 1-06 area(s) 2 [facility]y of sone cream 00:00: (two) [place] 00 times Medical daily. Use Branch for 2 weeks on affected area metroNIDAZO 2019-05 Yes [id number] 500mg Take 1 [facility] LE 500 mg 1-06 tablet by ity o f tablet 00:00: mouth [place] 00 every 12 Medical (twelve) Branch hours. clotrimazol 2020- Yes [id number] Apply to [facility] e-betametha 1-06 area(s) 2 [facility]y of sone cream 00:00: (two) [place] 00 times Medical daily. Use Branch for 2 weeks on affected area metroNIDAZO 2020- Yes [id number] 500mg Take 1 [facility] LE 500 mg 1-06 tablet by ity o f tablet 00:00: mouth [place] 00 every 12 Medical (twelve) Branch hours. clotrimazol 2020- Yes [id number] Apply to [facility] e-betametha 1-06 area(s) 2 ity of sone cream 00:00: (two) [place] 00 times Medical daily. Use Branch for 2 weeks on affected area metroNIDAZO 2020- Yes [id number] 500mg Take 1 [facility] LE 500 mg 1-06 tablet by ity o f tablet 00:00: mouth [place] 00 every 12 Medical (twelve) Branch hours. clotrimazol 2020- Yes [id number] Apply to [facility] e-betametha 1-06 area(s) 2 ity of sone cream 00:00: (two) [place] 00 times Medical daily. Use Branch for 2 weeks on affected area metroNIDAZO 2020- Yes [id number] 500mg Take 1 [facility] LE 500 mg 1-06 tablet by ity o f tablet 00:00: mouth [place] 00 every 12 Medical (twelve) Branch hours. clotrimazol 2020- Yes [id number] Apply to [facility] e-betametha 1-06 area(s) 2 ity of sone cream 00:00: (two) [place] 00 times Medical daily. Use Branch for 2 weeks on affected area clotrimazol 2020- Yes [id number] Apply to [facility] e-betametha 1-06 area(s) 2 ity of sone cream 00:00: (two) [place] 00 times Medical daily. Use Branch for 2 weeks on affected area clotrimazol 2020- Yes [id number] Apply to [facility] e-betametha 1-06 area(s) 2 ity of sone cream 00:00: (two) [place] 00 times Medical daily. Use Branch for 2 weeks on affected area clotrimazol 2020- Yes [id number] Apply to [facility] e-betametha 1-06 area(s) 2 ity of sone cream 00:00: (two) [place] 00 times Medical daily. Use Branch for 2 weeks on affected area clotrimazol 2020-1 Yes [id number] Apply to [facility] e-betametha 1-06 area(s) 2 ity of sone cream 00:00: (two) [place] 00 times Medical daily. Use Branch for 2 weeks on affected area clotrimazol 2020-1 Yes [id number] Apply to [facility] e-betametha 1-06 area(s) 2 ity of sone cream 00:00: (two) [place] 00 times Medical daily. Use Branch for 2 weeks on affected area clotrimazol 2020-1 Yes [id number] Apply to [facility] e-betametha 1-06 area(s) 2 ity of sone cream 00:00: (two) [place] 00 times Medical daily. Use Branch for 2 weeks on affected area clotrimazol 2020-1 Yes [id number] Apply to [facility] e-betametha 1-06 area(s) 2 ity of sone cream 00:00: (two) [place] 00 times Medical daily. Use Branch for 2 weeks on affected area clotrimazol 2020-1 Yes [id number] Apply to [facility] e-betametha 1-06 area(s) 2 ity of sone cream 00:00: (two) [place] 00 times Medical daily. Use Branch for 2 weeks on affected area clotrimazol 2020-1 Yes [id number] Apply to [facility] e-betametha 1-06 area(s) 2 ity of sone cream 00:00: (two) [place] 00 times Medical daily. Use Branch for 2 weeks on affected area clotrimazol 2020-1 Yes [id number] Apply to [facility] e-betametha 1-06 area(s) 2 ity of sone cream 00:00: (two) [place] 00 times Medical daily. Use Branch for 2 weeks on affected area clotrimazol 2020-1 Yes [id number] Apply to [facility] e-betametha 1-06 area(s) 2 ity of sone cream 00:00: (two) [place] 00 times Medical daily. Use Branch for 2 weeks on affected area clotrimazol 2020-1 Yes [id number] Apply to [facility] e-betametha 1-06 area(s) 2 ity of sone cream 00:00: (two) [place] 00 times Medical daily. Use Branch for 2 weeks on affected area clotrimazol 2019-05- No [id number] Apply to [facility] e-betametha 06-03 area(s) 2 it y of sone cream 00:00: 00:00 (two) [place] 00 :00 times Medical daily. Use Branch for 2 weeks on affected area clotrimazol 2019-05- No [id number] Apply to [facility] e-betametha 06-03 area(s) 2 it y of sone cream 00:00: 00:00 (two) [place] 00 :00 times Medical daily. Use Branch for 2 weeks on affected area metroNIDAZO 2019-05- No [id number] 500mg Take 1 [facility] LE 500 mg 06-03 tablet by ity of tablet 00:00: 00:00 mouth [place] 00 :00 every 12 Medical (twelve) Branch hours. metroNIDAZO 2019-05- No [id number] 500mg Take 1 [facility] LE 500 mg 06-03 tablet by ity of tablet 00:00: 00:00 mouth [place] 00 :00 every 12 Medical (twelve) Branch hours. fluconazole 2019-05- No [id number] 150mg Take 1 [facility] 150 mg 06-03 tablet by it[facility] of tablet 00:00: 05:59 mouth [place] 00 :00 every 72 [facility] hours for 2 doses. Take one tab now and a second dose in 72 hours fluconazole 2019-05- No [id number] 150mg Take 1 [facility] 150 mg 06-03 tablet by ity of tablet 00:00: 05:59 mouth [place] 00 :00 every 72 Medical [facility] hours for 2 doses. Take one tab now and a second dose in 72 hours fluconazole 2019-05- No [id number] 150mg Take 1 [facility] 150 mg 06-03 tablet by ity of tablet 00:00: 05:59 mouth [place] 00 :00 every 72 Medical [facility] hours for 2 doses. Take one tab now and a second dose in 72 hours fluconazole 2019-05- No [id number] 150mg Take 1 [facility] 150 mg 06-03 tablet by ity of tablet 00:00: 05:59 mouth [place] 00 :00 every 72 Medical ([facility] hours for 2 doses. Take one tab now and a second dose in 72 hours PANTOPRAZOL 2020-1 Yes [id number] TAKE 1 [facility] E 40 mg EC 0-23 TABLET BY ity of tablet 00:00: MOUTH ONCE [place] 00 DAILY DO Medical NOT CRUSH Branch OR CHEW POTASSIUM 2020-1 Yes [id number] Take 1 [facility] CHLORIDE 10 0-23 tablet by [facility]y of mEq CR 00:00: mouth once [place] tablet 00 daily Medical Branch PANTOPRAZOL 2020- Yes [id number] TAKE 1 [facility] E 40 mg EC 0-23 TABLET BY ity of tablet 00:00: MOUTH ONCE [place] 00 DAILY DO Medical NOT CRUSH Branch OR CHEW POTASSIUM 2020-1 Yes [id number] Take 1 [facility] CHLORIDE 10 0-23 tablet by [facility] of mEq CR 00:00: mouth once [place] tablet 00 daily Medical Branch PANTOPRAZOL 2020- Yes [id number] TAKE 1 [facility] E 40 mg EC 0-23 TABLET BY ity of tablet 00:00: MOUTH ONCE [place] 00 DAILY DO Medical NOT CRUSH Branch OR CHEW POTASSIUM 2020-1 Yes [id number] Take 1 [facility] CHLORIDE 10 0-23 tablet by [facility] of mEq CR 00:00: mouth once [place] tablet 00 daily Medical Branch PANTOPRAZOL 2020- Yes [id number] TAKE 1 [facility] E 40 mg EC 0-23 TABLET BY ity of tablet 00:00: MOUTH ONCE [place] 00 DAILY DO Medical NOT CRUSH Branch OR CHEW POTASSIUM 2020-1 Yes [id number] Take 1 [facility] CHLORIDE 10 0-23 tablet by [facility] of mEq CR 00:00: mouth once [place] tablet 00 daily Medical Branch PANTOPRAZOL 2020- Yes [id number] TAKE 1 [facility] E 40 mg EC 0-23 TABLET BY ity of tablet 00:00: MOUTH ONCE [place] 00 DAILY DO Medical NOT CRUSH Branch OR CHEW POTASSIUM 2020-1 Yes [id number] Take 1 [facility] CHLORIDE 10 0-23 tablet by [facility]y of mEq CR 00:00: mouth once [place] tablet 00 daily Medical Branch PANTOPRAZOL 2020-1 Yes [id number] TAKE 1 [facility] E 40 mg EC 0-23 TABLET BY ity of tablet 00:00: MOUTH ONCE [place] 00 DAILY DO Medical NOT CRUSH Branch OR CHEW POTASSIUM 2020-1 Yes [id number] Take 1 [facility] CHLORIDE 10 0-23 tablet by [facility]y of mEq CR 00:00: mouth once [place] tablet 00 daily Medical Branch PANTOPRAZOL 2020-1 Yes [id number] TAKE 1 [facility] E 40 mg EC 0-23 TABLET BY ity of tablet 00:00: MOUTH ONCE 00 DAILY DO Medical NOT CRUSH Branch OR CHEW POTASSIUM 2020- Yes [id number] Take 1 [facility] CHLORIDE 10 0-23 tablet by ity of mEq CR 00:00: mouth once [place] tablet 00 daily Medical Branch PANTOPRAZOL 2019- Yes [id number] TAKE 1 [facility] E 40 mg EC 0-23 TABLET BY ity of tablet 00:00: MOUTH ONCE [place] 00 DAILY DO Medical NOT CRUSH Branch OR CHEW POTASSIUM 2020-1 Yes [id number] Take 1 [facility] CHLORIDE 10 0-23 tablet by ity of mEq CR 00:00: mouth once [place] tablet 00 daily Medical Branch PANTOPRAZOL 2019-05 2020- No [id number] TAKE 1 [facility] E 40 mg EC 0-23 11-18 TABLET BY ity of tablet 00:00: 00:00 MOUTH ONCE [place] 00 :00 DAILY DO Medical NOT CRUSH Branch OR CHEW POTASSIUM 2019- 2020- No [id number] Take 1 [facility] CHLORIDE 10 0-23 11-18 tablet by it y of mEq CR 00:00: 00:00 mouth once [place] tablet 00 :00 daily Medical Branch gabapentin 2019- Yes [id number] 800mg Take 1 [facility] 800 mg 0-14 tablet by ity of tablet 00:00: mouth () Medical times Branch daily. gabapentin 2020- Yes [id number] 800mg Take 1 [facility] 800 mg 0-14 tablet by ity of tablet 00:00: mouth (three) Medical times Branch daily. gabapentin 2020- Yes [id number] 800mg Take 1 [facility] 800 mg 0-14 tablet by ity of tablet 00:00: mouth 3 (three) Medical times Branch daily. gabapentin 2020-1 Yes [id number] 800mg Take 1 [facility] 800 mg 0-14 tablet by ity of tablet 00:00: mouth 3 (three) Medical times Branch daily. gabapentin 2020-1 Yes [id number] 800mg Take 1 [facility] 800 mg 0-14 tablet by ity of tablet 00:00: mouth 3 (three) Medical times Branch daily. gabapentin 2020- Yes [id number] 800mg Take 1 [facility] 800 mg 0-14 tablet by ity of tablet 00:00: mouth 3 (three) Medical times Branch daily. gabapentin 2020-1 Yes [id number] 800mg Take 1 [facility] 800 mg 0-14 tablet by ity of tablet 00:00: mouth 3 [place] 00 (three) Medical times Branch daily. gabapentin 2020-1 Yes [id number] 800mg Take 1 [facility] 800 mg 0-14 tablet by ity of tablet 00:00: mouth 3 [place] 00 (three) Medical times Branch daily. gabapentin 2020-1 2020- No [id number] 800mg Take 1 [facility] 800 mg 0-14 11-16 tablet by ity of tablet 00:00: 00:00 mouth 3 [place] 00 :00 (three) Medical times Branch daily. FUROSEMIDE 2020-0 Yes [id number] Take 1 [facility] 20 mg 8-18 tablet by ity of tablet 00:00: mouth once [place] daily Medical Branch FUROSEMIDE 2020-0 Yes [id number] Take 1 [facility] 20 mg 8-18 tablet by ity of tablet 00:00: mouth once [place] daily Medical Branch FUROSEMIDE 2020-0 Yes [id number] Take 1 [facility] 20 mg 8-18 tablet by ity of tablet 00:00: mouth once [place] daily Medical Branch FUROSEMIDE 2020-0 Yes [id number] Take 1 [facility] 20 mg 8-18 tablet by ity of tablet 00:00: mouth once [place] daily Medical Branch FUROSEMIDE 2020-0 Yes [id number] Take 1 [facility]ivers 20 mg 8-18 tablet by ity of tablet 00:00: mouth once [place] daily Medical Branch FUROSEMIDE 2020-0 Yes [id number] Take 1 [facility] 20 mg 8-18 tablet by ity of tablet 00:00: mouth once [place] daily Medical Branch FUROSEMIDE 2020-0 Yes [id number] Take 1 [facility] 20 mg 8-18 tablet by ity of tablet 00:00: mouth once [place] daily Medical Branch FUROSEMIDE 2020-0 Yes [id number] Take 1 [facility] 20 mg 8-18 tablet by ity of tablet 00:00: mouth once [place] daily Medical Branch FUROSEMIDE 2020-0 Yes [id number] Take 1 [facility] 20 mg 8-18 tablet by ity of tablet 00:00: mouth once [place] daily Medical Branch FUROSEMIDE 2020-0 Yes [id number] Take 1 [facility] 20 mg 8-18 tablet by ity of tablet 00:00: mouth once [place] daily Medical Branch FUROSEMIDE 2020-0 Yes [id number] Take 1 [facility] 20 mg 8-18 tablet by ity of tablet 00:00: mouth once 00 daily Medical Branch FUROSEMIDE 2020-0 Yes [id number] Take 1 [facility] 20 mg 8-18 tablet by ity of tablet 00:00: mouth once 00 daily Medical Branch FUROSEMIDE 2020-0 2020- No [id number] Take 1 [facility] 20 mg 8-18 11-18 tablet by [facility] of tablet 00:00: 00:00 mouth once [place] 00 :00 daily Medical Branch fluconazole 2020-0 2020- No [id number] 150mg Take 1 [facility] 150 mg 8-14 08-15 tablet by ity of tablet 00:00: 04:59 mouth once [place] 00 :00 now for 1 Medical dose. Branch fluconazole 2020-0 2020- No [id number] 150mg Take 1 [facility] 150 mg 8-14 08-15 tablet by ity of tablet 00:00: 04:59 mouth once [place] 00 :00 now for 1 Medical dose. Branch gabapentin 2020-0 Yes [id number] 800mg Take 1 [facility] 800 mg 7-15 tablet by ity of tablet 00:00: mouth 3 ([facility] Medical times Branch daily. gabapentin 2020-0 Yes [id number] 800mg Take 1 [facility] 800 mg 7-15 tablet by ity of tablet 00:00: mouth ([facility]) Medical times Branch daily. gabapentin 2020-0 Yes [id number] 800mg Take 1 [facility] 800 mg 7-15 tablet by ity of tablet 00:00: mouth (three) Medical times Branch daily. gabapentin 2020-0 Yes [id number] 800mg Take 1 [facility] 800 mg 7-15 tablet by ity of tablet 00:00: mouth (three) Medical times Branch daily. gabapentin 2020-0 Yes [id number] 800mg Take 1 [facility] 800 mg 7-15 tablet by ity of tablet 00:00: mouth (three) Medical times Branch daily. gabapentin 2020-0 Yes [id number] 800mg Take 1 [facility] 800 mg 7-15 tablet by ity of tablet 00:00: mouth 3 (three) Medical times Branch daily. gabapentin 2020-0 Yes [id number] 800mg Take 1 [facility] 800 mg 7-15 tablet by ity of tablet 00:00: mouth (three) Medical times Branch daily. gabapentin 2020-0 2020- No [id number] 800mg Take 1 [facility] 800 mg 7-15 10-14 tablet by ity of tablet 00:00: 00:00 mouth 3 [place] 00 :00 (three) Medical times Branch daily. metFORMIN 2020-0 Yes 1000mg Take 2 [facility] ers 500 mg 7-09 tablets by ity of tablet 00:00: mouth 2 [place] 00 (two) Medical times Branch daily with meals. pantoprazol 2020-0 Yes [id number] 40mg Take 1 [facility] e 40 mg EC 7-09 tablet by ity of tablet 00:00: mouth [place] 00 daily. Do Medical not Crush Branch or Chew DULOXETINE 2020-0 Yes [id number] Take 1 [facility] 30 mg 7-09 capsule by ity of capsule 00:00: mouth once [place] 00 daily Medical Branch metFORMIN 2020-0 Yes 1000mg Take 2 [facility] ers 500 mg 7-09 tablets by ity of tablet 00:00: mouth 2 [place] 00 (two) Medical times Branch daily with meals. POTASSIUM 2020-0 Yes [id number] Take 1 [facility] CHLORIDE 10 7-09 tablet by ity of mEq CR 00:00: mouth once [place] tablet 00 daily Medical Branch pantoprazol 2020-0 Yes [id number] 40mg Take 1 [facility] e 40 mg EC 7-09 tablet by ity of tablet 00:00: mouth [place] 00 daily. Do Medical not Crush Branch or Chew DULOXETINE 2020-0 Yes [id number] Take 1 [facility] 30 mg 7-09 capsule by ity of capsule 00:00: mouth once [place] 00 daily Medical Branch metFORMIN 2020-0 Yes 1000mg Take 2 [facility] ers 500 mg 7-09 tablets by ity of tablet 00:00: mouth 2 (two) Medical times Branch daily with meals. POTASSIUM 2020-0 Yes [id number] Take 1 [facility] CHLORIDE 10 7-09 tablet by ity of mEq CR 00:00: mouth once [place] tablet 00 daily Medical Branch pantoprazol 2020-0 Yes [id number] 40mg Take 1 [facility] e 40 mg EC 7-09 tablet by ity of tablet 00:00: mouth [place] 00 daily. Do Medical not Crush Branch or Chew DULOXETINE 2020-0 Yes [id number] Take 1 [facility] 30 mg 7-09 capsule by ity of capsule 00:00: mouth once [place] 00 daily Medical Branch metFORMIN 2020-0 Yes 1000mg Take 2 [facility] ers 500 mg 7-09 tablets by ity of tablet 00:00: mouth 2 (two) Medical times Branch daily with meals. POTASSIUM 2020-0 Yes [id number] Take 1 [facility] CHLORIDE 10 7-09 tablet by ity of mEq CR 00:00: mouth once [place] tablet 00 daily Medical Branch pantoprazol 2020-0 Yes [id number] 40mg Take 1 [facility] e 40 mg EC 7-09 tablet by ity of tablet 00:00: mouth [place] 00 daily. Do Medical not Crush Branch or Chew DULOXETINE 2020-0 Yes [id number] Take 1 [facility] 30 mg 7-09 capsule by [facility] capsule 00:00: mouth [place] 00 daily [facility] metFORMIN 2020-0 Yes 1000mg Take 2 [facility] ers 500 mg 7-09 tablets by ity of tablet 00:00: mouth 2 (two) Medical times Branch daily with meals. POTASSIUM 2020-0 Yes [id number] Take 1 [facility] CHLORIDE 10 7-09 tablet by ity of mEq CR 00:00: mouth once [place] tablet 00 daily Medical Branch pantoprazol 2020-0 Yes [id number] 40mg Take 1 [facility] e 40 mg EC 7-09 tablet by ity of tablet 00:00: mouth 00 daily. Do Medical not Crush Branch or Chew DULOXETINE 2020-0 Yes [id number] Take 1 [facility] 30 mg 7-09 capsule by [facility] capsule 00:00: mouth [place] 00 daily Medical Branch metFORMIN 2020-0 Yes 1000mg Take 2 [facility] ers 500 mg 7-09 tablets by ity of tablet 00:00: mouth (two) Medical times Branch daily with meals. POTASSIUM 2020-0 Yes [id number] Take 1 [facility] CHLORIDE 10 7-09 tablet by ity of mEq CR 00:00: mouth once [place] tablet 00 daily Medical Branch pantoprazol 2020-0 Yes [id number] 40mg Take 1 [facility] e 40 mg EC 7-09 tablet by ity of tablet 00:00: mouth [place] 00 daily. Do Medical not Crush Branch or Chew DULOXETINE 2020-0 Yes [id number] Take 1 [facility] 30 mg 7-09 capsule by [facility] capsule 00:00: mouth [place] 00 daily Medical Branch metFORMIN 2020-0 Yes 1000mg Take 2 [facility] ers 500 mg 7-09 tablets by ity of tablet 00:00: mouth 2 (two) Medical times Branch daily with meals. POTASSIUM 2020-0 Yes [id number] Take 1 [facility] CHLORIDE 10 7-09 tablet by ity of mEq CR 00:00: mouth once [place] tablet 00 daily Medical Branch pantoprazol 2020-0 Yes [id number] 40mg Take 1 [facility] e 40 mg EC 7-09 tablet by ity of tablet 00:00: mouth [place] 00 daily. Do Medical not Crush Branch or Chew DULOXETINE 2020-0 Yes [id number] Take 1 [facility] 30 mg 7-09 capsule by [facility] capsule 00:00: mouth [place] 00 daily Medical Branch metFORMIN 2020-0 Yes 1000mg Take 2 [facility] ers 500 mg 7-09 tablets by ity of tablet 00:00: mouth 2 (two) Medical times Branch daily with meals. POTASSIUM 2020-0 Yes [id number] Take 1 [facility] CHLORIDE 10 7-09 tablet by ity of mEq CR 00:00: mouth once [place] tablet 00 daily Medical Branch pantoprazol 2020-0 Yes [id number] 40mg Take 1 [facility] e 40 mg EC 7-09 tablet by ity of tablet 00:00: mouth 00 daily. Do Medical not Crush Branch or Chew DULOXETINE 2020-0 Yes [id number] Take 1 [facility] 30 mg 7-09 capsule by [facility] capsule 00:00: mouth once [place] 00 daily Medical Branch metFORMIN 2020-0 Yes 1000mg Take 2 [facility] ers 500 mg 7-09 tablets by ity of tablet 00:00: mouth 2 (two) Medical times Branch daily with meals. POTASSIUM 2020-0 Yes [id number] Take 1 [facility] CHLORIDE 10 7-09 tablet by ity of mEq CR 00:00: mouth once [place] tablet 00 daily Medical Branch pantoprazol 2020-0 Yes [id number] 40mg Take 1 [facility] e 40 mg EC 7-09 tablet by ity of tablet 00:00: mouth 00 daily. Do Medical not Crush Branch or Chew DULOXETINE 2020-0 Yes [id number] Take 1 [facility] 30 mg 7-09 capsule by [facility] capsule 00:00: mouth once [place] 00 daily Medical Branch metFORMIN 2020-0 Yes 1000mg Take 2 [facility] ers 500 mg 7-09 tablets by ity of tablet 00:00: mouth 2 (two) Medical times Branch daily with meals. POTASSIUM 2020-0 Yes [id number] Take 1 [facility] CHLORIDE 10 7-09 tablet by ity of mEq CR 00:00: mouth once [place] tablet 00 daily Medical Branch DULOXETINE 2020-0 Yes [id number] Take 1 [facility] 30 mg 7-09 capsule by [facility] of capsule 00:00: mouth once [place] 00 daily Medical Branch metFORMIN 2020-0 Yes 1000mg Take 2 [facility] ers 500 mg 7-09 tablets by ity of tablet 00:00: mouth 2 [place] (two) Medical times Branch daily with meals. DULOXETINE 2020-0 Yes [id number] Take 1 [facility] 30 mg 7-09 capsule by [facility] of capsule 00:00: mouth once [place] 00 daily Medical Branch metFORMIN 2020-0 Yes 1000mg Take 2 [facility] 500 mg 7-09 tablets by ity of tablet 00:00: mouth 2 [place] (two) Medical times Branch daily with meals. DULOXETINE 2020-0 Yes [id number] Take 1 [facility] 30 mg 7-09 capsule by [facility] of capsule 00:00: mouth once [place] 00 daily Medical Branch metFORMIN 2020-0 Yes 1000mg Take 2 [facility] ers 500 mg 7-09 tablets by ity of tablet 00:00: mouth 2 [place] (two) Medical times Branch daily with meals. DULOXETINE 2020-0 Yes [id number] Take 1 [facility] 30 mg 7-09 capsule by [facility] of capsule 00:00: mouth once [place] 00 daily Medical Branch metFORMIN 2020-0 Yes 1000mg Take 2 [facility] 500 mg 7-09 tablets by ity of tablet 00:00: mouth 2 [place] (two) Medical times Branch daily with meals. DULOXETINE 2020-0 Yes [id number] Take 1 [facility] 30 mg 7-09 capsule by [facility] of capsule 00:00: mouth once [place] 00 daily Medical Branch metFORMIN 2020-0 Yes 1000mg Take 2 [facility] 500 mg 7-09 tablets by ity of tablet 00:00: mouth 2 [place] (two) Medical times Branch daily with meals. DULOXETINE 2020-0 Yes [id number] Take 1 [facility] 30 mg 7-09 capsule by [facility] capsule 00:00: mouth once [place] 00 daily Medical Branch metFORMIN 2020-0 Yes 1000mg Take 2 [facility] 500 mg 7-09 tablets by ity of tablet 00:00: mouth 2 [place] (two) Medical times Branch daily with meals. DULOXETINE 2020-0 Yes [id number] Take 1 [facility] 30 mg 7-09 capsule by [facility] of capsule 00:00: mouth once [place] 00 daily Medical Branch metFORMIN 2020-0 Yes 1000mg Take 2 [facility] 500 mg 7-09 tablets by ity of tablet 00:00: mouth [place] (two) Medical times Branch daily with meals. DULOXETINE 2020-0 Yes [id number] Take 1 [facility] 30 mg 7-09 capsule by [facility] of capsule 00:00: mouth once [place] 00 daily Medical Branch metFORMIN 2020-0 Yes 1000mg Take 2 [facility] 500 mg 7-09 tablets by ity of tablet 00:00: mouth 2 [place] (two) Medical times Branch daily with meals. DULOXETINE 2020-0 Yes [id number] Take 1 [facility] 30 mg 7-09 capsule by [facility] of capsule 00:00: mouth once [place] 00 daily Medical Branch metFORMIN 2020-0 Yes 1000mg Take 2 [facility] 500 mg 7-09 tablets by ity of tablet 00:00: mouth [place] (two) Medical times Branch daily with meals. DULOXETINE 2020-0 Yes [id number] Take 1 [facility] 30 mg 7-09 capsule by [facility] of capsule 00:00: mouth once [place] daily Medical Branch metFORMIN 2020-0 Yes 1000mg Take 2 [facility] 500 mg 7-09 tablets by ity of tablet 00:00: mouth [place] ([facility]) Medical times Branch daily with meals. DULOXETINE 2020-0 Yes [id number] Take 1 [facility] 30 mg 7-09 capsule by [facility] of capsule 00:00: mouth once [place] 00 daily Medical Branch metFORMIN 2020-0 Yes 1000mg Take 2 [facility] ers 500 mg 7-09 tablets by ity of tablet 00:00: mouth [place] (two) Medical times Branch daily with meals. DULOXETINE 2020-0 Yes [id number] Take 1 [facility] 30 mg 7-09 capsule by [facility] of capsule 00:00: mouth once [place] 00 daily Medical Branch metFORMIN 2020-0 Yes 1000mg Take 2 [facility] ers 500 mg 7-09 tablets by ity of tablet 00:00: mouth [place] (two) Medical times Branch daily with meals. DULOXETINE 2020-0 Yes [id number] Take 1 [facility] 30 mg 7-09 capsule by [facility] of capsule 00:00: mouth once [place] 00 daily Medical Branch metFORMIN 2020-0 Yes 1000mg Take 2 [facility] ers 500 mg 7-09 tablets by ity of tablet 00:00: mouth (two) Medical times Branch daily with meals. DULOXETINE 2020-0 Yes [id number] Take 1 [facility] 30 mg 7-09 capsule [...] Medical times Branch daily with meals. DULOXETINE 2019-0 2020- No [id number] Take 1 [facility] 30 mg 12-04 capsule by ity of capsule 00:00: 00:00 mouth once [place] 00 :00 daily Medical Branch DULOXETINE 2019-0 2020- No [id number] Take 1 [facility] 30 mg 12-04 capsule by ity of capsule 00:00: 00:00 mouth once [place] 00 :00 daily Medical Branch pantoprazol 2019-0 2020- No [id number] 40mg Take 1 [facility] e 40 mg EC 12-04 tablet by ity of tablet 00:00: 00:00 mouth [place] 00 :00 daily. Do Medical not Crush Branch or Chew POTASSIUM 2020-0 2020- No [id number] Take 1 [facility] nivers CHLORIDE 10 12-04 tablet by it y of mEq CR 00:00: 00:00 mouth once [place] tablet 00 :00 daily Medical Branch PANTOPRAZOL 2020-0 Yes [id number] Take 1 [facility] E 40 mg EC 6-08 tablet by ity of tablet 00:00: mouth once [place] 00 daily Medical Branch POTASSIUM 2020-0 Yes [id number] Take 1 [facility] CHLORIDE 10 6-08 tablet by ity of mEq CR 00:00: mouth once [place] tablet 00 daily Medical Branch PANTOPRAZOL 2020-0 Yes [id number] Take 1 [facility] E 40 mg EC 6-08 tablet by ity of tablet 00:00: mouth once [place] 00 daily Medical Branch POTASSIUM 2020-0 Yes [id number] Take 1 [facility] CHLORIDE 10 6-08 [...] 5-15 tablet by ity of tablet 20:19: [employer] 33 daily. Medical Branch GABAPENTIN 2020-0 Yes [id number] TAKE 1 [facility] 800 mg 5-05 TABLET BY ity of tablet 00:00: [facility] 00 THREE Medical TIMES Branch DAILY GABAPENTIN 2020-0 Yes [id number] TAKE 1 [facility] 800 mg 5-05 TABLET BY ity of tablet 00:00: [facility] 00 THREE Medical TIMES Branch DAILY GABAPENTIN 2020-0 Yes [id number] TAKE 1 [facility] 800 mg 5-05 TABLET BY ity of tablet 00:00: [facility] 00 THREE Medical TIMES Branch DAILY GABAPENTIN 2020-0 Yes [id number] TAKE 1 [facility] 800 mg 5-05 TABLET BY ity of tablet 00:00: [facility] 00 THREE Medical TIMES Branch DAILY GABAPENTIN 2020-0 Yes [id number] TAKE 1 [facility] 800 mg 5-05 TABLET BY ity of tablet 00:00: [facility] 00 THREE Medical TIMES Branch DAILY GABAPENTIN 2020-0 Yes [id number] TAKE 1 [facility] 800 mg 5-05 TABLET BY ity of tablet 00:00: [facility] 00 THREE Medical TIMES Branch DAILY GABAPENTIN 2020-0 Yes [id number] TAKE 1 [facility] 800 mg 5-05 TABLET BY ity of tablet 00:00: [facility] 00 THREE Medical TIMES Branch DAILY GABAPENTIN 2020-0 Yes [id number] TAKE 1 [facility] 800 mg 5-05 TABLET BY ity of tablet 00:00: [facility] 00 THREE Medical TIMES Branch DAILY GABAPENTIN 2020-0 Yes [id number] TAKE 1 [facility] 800 mg 5-05 TABLET BY ity of tablet 00:00: [facility] 00 [facility] Medical TIMES Branch DAILY GABAPENTIN 2020-0 Yes [id number] TAKE 1 [facility] 800 mg 5-05 TABLET BY ity of tablet 00:00: [facility] 00 [facility] Medical TIMES Branch DAILY GABAPENTIN 2020-0 2020- No [id number] TAKE 1 [facility] 800 mg 5-05 07-15 TABLET BY ity of tablet 00:00: 00:00 [facility] 00 :00 [facility] Medical TIMES Branch DAILY metoprolol 2020-0 Yes 100mg 100 mg, Uni vers succinate 3-21 Oral, ity of XL (TOPROL 14:00: DAILY, [place] XL) tablet 00 First dose Med ical 100 mg on Sat Branch 08/17/19 at 0900, Until Discontinu ed, Routine atorvastati 2020-0 Yes 80mg 80 mg, Univ ers n (LIPITOR) 3-21 Oral, QHS, it y of tablet 80 02:00: First dose [place] mg 00 on Fri Medical 08/16/19 at [place] 2100, Until Discontinu ed, Routine metoprolol 2020-0 Yes 50mg 50 mg, Unive rs tartrate 3-21 Oral, BID, ity o f (LOPRESSOR) 01:00: First dose [place] tablet 50 00 on Fri Medical mg 08/16/19 at [place] 2000, Until Discontinu ed, Routine metoprolol 2020-0 Yes [id number] 100mg Take 1 [facility] succinate 3-21 07 tablet by ity o f XL 100 mg 00:00: mouth [place] 24 hr 00 daily. Medical tablet [place] azithromyci 2020-0 Yes [id number] 250mg Take 1 [facility] n 250 mg 3-21 07 tablet by ity of tablet 00:00: mouth [place] 00 daily. Medical Take 250 Branch mg tablet once daily metoprolol 2020-0 Yes [id number] 100mg Take 1 [facility] succinate 3-21 07 tablet by ity o f XL 100 mg 00:00: mouth [place] 24 hr 00 daily. Medical tablet [place] azithromyci 2020-0 Yes [id number] 250mg Take 1 [facility] n 250 mg 3-21 07 tablet by ity of tablet 00:00: mouth [place] 00 daily. Medical Take 250 Branch mg tablet once daily metoprolol 2020-0 Yes [id number] 100mg Take 1 [facility] succinate 3-21 07 tablet by ity o f XL 100 mg 00:00: mouth [place] 24 hr 00 daily. Medical tablet [place] azithromyci 2020-0 Yes [id number] 250mg Take 1 [facility] n 250 mg 3-21 07 tablet by ity of tablet 00:00: mouth [place] 00 daily. Medical Take 250 Branch mg tablet once daily metoprolol 2020-0 Yes [id number] 100mg Take 1 [facility] succinate 3-21 07 tablet by ity o f XL 100 mg 00:00: mouth [place] 24 hr 00 daily. Medical tablet [place] azithromyci 2020-0 Yes [id number] 250mg Take 1 [facility] n 250 mg 3-21 07 tablet by ity of tablet 00:00: mouth [place] 00 daily. Medical Take 250 Branch mg tablet once daily metoprolol 2020-0 Yes [id number] 100mg Take 1 [facility] succinate 3-21 07 tablet by ity o f XL 100 mg 00:00: mouth [place] 24 hr 00 daily. Medical tablet Branch azithromyci 2020-0 Yes [id number] 250mg Take 1 [facility] n 250 mg 3-21 07 tablet by ity of tablet 00:00: mouth [place] 00 daily. Medical Take 250 Branch mg tablet once daily metoprolol 2020-0 Yes [id number] 100mg Take 1 [facility] succinate 3-21 07 tablet by ity o f XL 100 mg 00:00: mouth [place] 24 hr 00 daily. Medical tablet Branch azithromyci 2020-0 Yes [id number] 250mg Take 1 [facility] n 250 mg 3-21 07 tablet by ity of tablet 00:00: mouth [place] 00 daily. Medical Take 250 Branch mg tablet once daily metoprolol 2020-0 Yes [id number] 100mg Take 1 [facility] succinate 3-21 07 tablet by ity o f XL 100 mg 00:00: mouth [place] 24 hr 00 daily. Medical tablet Branch azithromyci 2020-0 Yes [id number] 250mg Take 1 [facility] n 250 mg 3-21 07 tablet by ity of tablet 00:00: mouth [place] 00 daily. Medical Take 250 Branch mg tablet once daily metoprolol 2020-0 Yes [id number] 100mg Take 1 [facility] succinate 3-21 07 tablet by ity o f XL 100 mg 00:00: mouth [place] 24 hr 00 daily. Medical tablet Branch azithromyci 2020-0 Yes [id number] 250mg Take 1 [facility] n 250 mg 3-21 07 tablet by ity of tablet 00:00: mouth [place] 00 daily. Medical Take 250 Branch mg tablet once daily metoprolol 2020-0 Yes [id number] 100mg Take 1 [facility] succinate 3-21 07 tablet by ity o f XL 100 mg 00:00: mouth [place] 24 hr 00 daily. Medical tablet Branch azithromyci 2020-0 Yes [id number] 250mg Take 1 [facility] n 250 mg 3-21 07 tablet by ity of tablet 00:00: mouth [place] 00 daily. Medical Take 250 Branch mg tablet once daily metoprolol 2020-0 Yes [id number] 100mg Take 1 [facility] succinate 3-21 07 tablet by ity o f XL 100 mg 00:00: mouth [place] 24 hr 00 daily. Medical tablet Branch azithromyci 2020-0 Yes [id number] 250mg Take 1 [facility] n 250 mg 3-21 07 tablet by ity of tablet 00:00: mouth [place] 00 daily. Medical Take 250 Branch mg tablet once daily metoprolol 2020-0 Yes [id number] 100mg Take 1 [facility] succinate 3-21 07 tablet by ity o f XL 100 mg 00:00: mouth [place] 24 hr 00 daily. Medical tablet Branch azithromyci 2020-0 Yes [id number] 250mg Take 1 [facility] n 250 mg 3-21 07 tablet by ity of tablet 00:00: mouth [place] 00 daily. Medical Take 250 Branch mg tablet once daily metoprolol 2020-0 Yes [id number] 100mg Take 1 [facility] succinate 3-21 07 tablet by ity o f XL 100 mg 00:00: mouth [place] 24 hr 00 daily. Medical tablet Branch azithromyci 2020-0 Yes [id number] 250mg Take 1 [facility] n 250 mg 3-21 07 tablet by ity of tablet 00:00: mouth [place] 00 daily. Medical Take 250 Branch mg tablet once daily metoprolol 2020-0 Yes [id number] 100mg Take 1 [facility] succinate 3-21 07 tablet by ity o f XL 100 mg 00:00: mouth [place] 24 hr 00 daily. Medical tablet Branch azithromyci 2020-0 Yes [id number] 250mg Take 1 [facility] n 250 mg 3-21 07 tablet by ity of tablet 00:00: mouth [place] 00 daily. Medical Take 250 Branch mg tablet once daily metoprolol 2020-0 Yes [id number] 100mg Take 1 [facility] succinate 3-21 07 tablet by ity o f XL 100 mg 00:00: mouth [place] 24 hr 00 daily. Medical tablet Branch azithromyci 2020-0 Yes [id number] 250mg Take 1 [facility] n 250 mg 3-21 07 tablet by ity of tablet 00:00: mouth [place] 00 daily. Medical Take 250 Branch mg tablet once daily metoprolol 2020-0 Yes [id number] 100mg Take 1 [facility] succinate 3-21 tablet by ity o f XL 100 mg 00:00: mouth [place] 24 hr 00 daily. Medical tablet Branch azithromyci 2020-0 Yes [id number] 250mg Take 1 [facility] n 250 mg 3-21 tablet by ity of tablet 00:00: mouth [place] 00 daily. Medical Take 250 Branch mg tablet once daily metoprolol 2020-0 Yes [id number] 100mg Take 1 [facility] succinate 3-21 tablet by ity o f XL 100 mg 00:00: mouth [place] 24 hr 00 daily. Medical tablet Branch azithromyci 2020-0 Yes [id number] 250mg Take 1 [facility] n 250 mg 3-21 tablet by ity of tablet 00:00: mouth [place] 00 daily. Medical Take 250 Branch mg tablet once daily metoprolol 2020-0 Yes [id number] 100mg Take 1 [facility] succinate 3-21 tablet by ity o f XL 100 mg 00:00: mouth [place] 24 hr 00 daily. Medical tablet Branch azithromyci 2020-0 Yes [id number] 250mg Take 1 [facility] n 250 mg 3-21 tablet by ity of tablet 00:00: mouth [place] 00 daily. Medical Take 250 Branch mg tablet once daily metoprolol 2020-0 Yes [id number] 100mg Take 1 [facility] succinate 3-21 tablet by ity o f XL 100 mg 00:00: mouth [place] 24 hr 00 daily. Medical tablet Branch metoprolol 2020-0 Yes [id number] 100mg Take 1 [facility] succinate 3-21 tablet by ity o f XL 100 mg 00:00: mouth [place] 24 hr 00 daily. Medical tablet Branch metoprolol 2020-0 Yes [id number] 100mg Take 1 [facility] succinate 3-21 tablet by ity o f XL 100 mg 00:00: mouth [place] 24 hr 00 daily. Medical tablet Branch metoprolol 2020-0 Yes [id number] 100mg Take 1 [facility] succinate 3-21 tablet by ity o f XL 100 mg 00:00: mouth [place] 24 hr 00 daily. Medical tablet Branch metoprolol 2020-0 Yes [id number] 100mg Take 1 [facility] succinate 3-21 tablet by ity o f XL 100 mg 00:00: mouth [place] 24 hr 00 daily. Medical tablet Branch metoprolol 2020-0 Yes [id number] 100mg Take 1 [facility] succinate 3-21 tablet by ity o f XL 100 mg 00:00: mouth [place] 24 hr 00 daily. Medical tablet Branch metoprolol 2020-0 Yes [id number] 100mg Take 1 [facility] succinate 3-21 tablet by ity o f XL 100 mg 00:00: mouth [place] 24 hr 00 daily. Medical tablet Branch metoprolol 2020-0 Yes [id number] 100mg Take 1 [facility] succinate 3-21 tablet by ity o f XL 100 mg 00:00: mouth [place] 24 hr 00 daily. Medical tablet Branch metoprolol 2020-0 Yes [id number] 100mg Take 1 [facility] succinate 3-21 tablet by ity o f XL 100 mg 00:00: mouth [place] 24 hr 00 daily. Medical tablet Branch metoprolol 2020-0 Yes [id number] 100mg Take 1 [facility] succinate 3-21 tablet by ity o f XL 100 mg 00:00: mouth [place] 24 hr 00 daily. Medical tablet Branch metoprolol 2020-0 Yes [id number] 100mg Take 1 [facility] succinate 3-21 tablet by ity o f XL 100 mg 00:00: mouth [place] 24 hr 00 daily. Medical tablet Branch metoprolol 2020-0 Yes [id number] 100mg Take 1 [facility] succinate 3-21 tablet by ity o f XL 100 mg 00:00: mouth [place] 24 hr 00 daily. Medical tablet Branch metoprolol 2020-0 Yes [id number] 100mg Take 1 [facility] succinate 3-21 tablet by ity o f XL 100 mg 00:00: mouth [place] 24 hr 00 daily. Medical tablet Branch metoprolol 2020-0 Yes [id number] 100mg Take 1 [facility] succinate 3-21 tablet by ity o f XL 100 mg 00:00: mouth [place] 24 hr 00 daily. Medical tablet Branch metoprolol 2020-0 Yes [id number] 100mg Take 1 [facility] succinate 3-21 tablet by ity o f XL 100 mg 00:00: mouth [place] 24 hr 00 daily. Medical tablet Branch metoprolol 2020-0 Yes [id number] 100mg Take 1 [facility] succinate 3-21 tablet by ity o f XL 100 mg 00:00: mouth [place] 24 hr 00 daily. Medical tablet Branch metoprolol 2020-0 Yes [id number] 100mg Take 1 [facility] succinate 3-21 tablet by ity o f XL 100 mg 00:00: mouth [place] 24 hr 00 daily. Medical tablet Branch metoprolol 2020-0 Yes [id number] 100mg Take 1 [facility] succinate 3-21 tablet by ity o f XL 100 mg 00:00: mouth [place] 24 hr 00 daily. Medical tablet Branch metoprolol 2020-0 Yes [id number] 100mg Take 1 [facility] succinate 3-21 tablet by ity o f XL 100 mg 00:00: mouth [place] 24 hr 00 daily. Medical tablet Branch metoprolol 2020-0 Yes [id number] 100mg Take 1 [facility] succinate 3-21 tablet by ity o f XL 100 mg 00:00: mouth [place] 24 hr 00 daily. Medical tablet Branch metoprolol 2020-0 Yes [id number] 100mg Take 1 [facility] succinate 3-21 tablet by ity o f XL 100 mg 00:00: mouth [place] 24 hr 00 daily. Medical tablet Branch metoprolol 2020-0 Yes [id number] 100mg Take 1 [facility] succinate 3-21 tablet by ity o f XL 100 mg 00:00: mouth [place] 24 hr 00 daily. Medical tablet Branch metoprolol 2020-0 Yes [id number] 100mg Take 1 [facility] succinate 3-21 tablet by ity o f XL 100 mg 00:00: mouth [place] 24 hr 00 daily. Medical tablet Branch metoprolol 2020-0 Yes [id number] 100mg Take 1 [facility] succinate 3-21 tablet by ity o f XL 100 mg 00:00: mouth [place] 24 hr 00 daily. Medical tablet Branch metoprolol 2020-0 Yes [id number] 100mg Take 1 [facility] succinate 3-21 tablet by ity o f XL 100 mg 00:00: mouth [place] 24 hr 00 daily. Medical tablet Branch metoprolol 2020-0 Yes [id number] 100mg Take 1 [facility] succinate 3-21 07 tablet by ity o f XL 100 mg 00:00: mouth [place] 24 hr 00 daily. Medical tablet Branch azithromyci 2020-0 Yes [id number] 250mg Take 1 [facility] n 250 mg 3-21 07 tablet by ity of tablet 00:00: mouth [place] 00 daily. Medical Take 250 Branch mg tablet once daily metoprolol 2020-0 Yes [id number] 100mg Take 1 [facility] succinate 3-21 07 tablet by ity o f XL 100 mg 00:00: mouth [place] 24 hr 00 daily. Medical tablet Branch azithromyci 2019-0 Yes [id number] 250mg Take 1 [facility] n 250 mg 3-21 07 tablet by ity of tablet 00:00: mouth [place] 00 daily. Medical Take 250 Branch mg tablet once daily metoprolol 2020-0 2020- No [id number] 100mg Take 1 [facility] succinate 3-21 01-11 tablet by ity of XL 100 mg 00:00: 00:00 mouth [place] 24 hr 00 :00 daily. Medical tablet Branch azithromyci 2020-0 2019- No [id number] 250mg Take 1 [facility] n 250 mg 3-21 08-14 tablet by ity o f tablet 00:00: 00:00 mouth [place] 00 :00 daily. Medical Take 250 Branch mg tablet once daily azithromyci 2019-0 2020- No [id number] 250mg Take 1 [facility] n 250 mg 3-21 08-14 tablet by ity o f tablet 00:00: 00:00 mouth [place] 00 :00 daily. Medical Take 250 Branch mg tablet once daily fluconazole 2019-0 2019- No 150mg 150 mg, U nivers (DIFLUCAN) -08-15 Oral, ONCE it y of tablet 150 [...] of tablet 16:51: mouth [place] 31 daily. [facility] Branch aspirin 81 2020-0 Yes 81mg Take 1 Unive rs mg chewable 3-20 tablet by ity of tablet 16:51: mouth [place] 31 daily. [facility] Branch aspirin 81 2020-0 Yes 81mg Take 1 Unive rs mg chewable 3-20 tablet by ity of tablet 16:51: mouth [place] 31 daily. [facility] Branch aspirin 81 2020-0 Yes 81mg Take 1 Unive rs mg chewable 3-20 tablet by ity of tablet 16:51: mouth [place] 31 daily. [facility] Branch aspirin 81 2020-0 Yes 81mg Take 1 Unive rs mg chewable 3-20 tablet by ity of tablet 16:51: mouth [place] 31 daily. [facility] Branch aspirin 81 2020-0 Yes 81mg Take 1 Unive rs mg chewable 3-20 tablet by ity of tablet 16:51: mouth [place] 31 daily. [facility] Branch aspirin 81 2020-0 Yes 81mg Take 1 Unive rs mg chewable 3-20 tablet by ity of tablet 16:51: mouth [place] 31 daily. [facility] Branch aspirin 81 2020-0 Yes 81mg Take 1 Unive rs mg chewable 3-20 tablet by ity of tablet 16:51: mouth [place] 31 daily. [facility] aspirin 81 2020-0 Yes 81mg Take 1 Unive rs mg chewable 3-20 tablet by ity of tablet 16:51: mouth [place] 31 daily. [facility] aspirin 2020- No 81mg Take 81 mg Uni vers (ASPIRIN 08-1520 by mouth ity of LOW DOSE) 16:51: 00:00 daily. [place] 81 mg EC 31 :00 Medical [facility] LORazepam 2019- No 1mg 1 mg, Univer s (ATIVAN) 08-15 Oral, ity of tablet 1 mg 00:30: 23:58 ONCE, 1 [place] 00 :00 dose, [facility] 08/15/19 at [place] 1930, Routine clopidogreL Yes [id number] 75mg Take 1 Univers (PLAVIX) 75 3-20 tablet by ity of mg tablet 00:00: mouth [place] 00 daily. [facility] insulin NPH Yes [id number] Inject 84 Univers and regular 3-20 units AM, ity of human 70-30 00:00: 84 units [place] (NOVOLIN 00 PM Medical 70/30 U-100 [place] INSULIN) 100 unit/mL (70-30) injection atorvastati Yes [id number] 80mg Take 1 [facility] n 80 mg 3-20 07 tablet by ity of tablet 00:00: mouth at [place] 00 bedtime. [facility] clopidogreL 2019-0 Yes [id number] 75mg Take 1 Univers (PLAVIX) 75 3-20 tablet by ity of mg tablet 00:00: mouth [place] 00 daily. [facility] insulin NPH Yes [id number] Inject 84 Univers and regular 3-20 units AM, ity of human 70-30 00:00: 84 units [place] (NOVOLIN 00 PM Medical 70/30 U-100 [place] INSULIN) 100 unit/mL (70-30) injection atorvastati 2019- Yes [id number] 80mg Take 1 Univers n 80 mg 3-20 07 tablet by ity of tablet 00:00: mouth at [place] 00 bedtime. [facility] clopidogreL 2019-0 Yes [id number] 75mg Take 1 [facility] (PLAVIX) 75 3-20 tablet by ity of mg tablet 00:00: mouth [place] 00 daily. [facility] insulin NPH Yes [id number] Inject 84 [facility] and regular 3-20 units AM, ity of human 70-30 00:00: 84 units [place] (NOVOLIN 00 PM Medical 70/30 U-100 Branch INSULIN) 100 unit/mL (70-30) injection atorvastati 2020-0 Yes [id number] 80mg Take 1 [facility] n 80 mg 3-20 07 tablet by ity of tablet 00:00: mouth at 00 bedtime. [facility] clopidogreL 2020-0 Yes [id number] 75mg Take 1 [facility] (PLAVIX) 75 3-20 tablet by ity of mg tablet 00:00: mouth daily. [facility] insulin NPH 2020-0 Yes [id number] Inject 84 [facility] and regular 3-20 units AM, ity of human 7030 00:00: 84 units [place] (NOVOLIN 00 PM Medical 70/30 U-100 Branch INSULIN) 100 unit/mL (-30) injection atorvastati 2019-0 Yes [id number] 80mg Take 1 [facility] n 80 mg 3-20 07 tablet by ity of tablet 00:00: mouth at bedtime. [facility] clopidogreL 2020-0 Yes [id number] 75mg Take 1 [facility] (PLAVIX) 75 3-20 tablet by ity of mg tablet 00:00: mouth daily. [facility] insulin NPH 2019-0 Yes [id number] Inject 84 [facility] and regular 3-20 units AM, ity of human 00:00: 84 units [place] (NOVOLIN 00 PM Medical 70/30 U-100 Branch INSULIN) 100 unit/mL (30) injection atorvastati 2019-0 Yes [id number] 80mg Take 1 [facility] n 80 mg 3-20 07 tablet by ity of tablet 00:00: mouth at bedtime. [facility] clopidogreL 2020-0 Yes [id number] 75mg Take 1 [facility] (PLAVIX) 75 3-20 tablet by ity of mg tablet 00:00: mouth daily. [facility] insulin NPH 2020-0 Yes [id number] Inject 84 [facility] and regular 3-20 units AM, ity of human 30 00:00: 84 units [place] (NOVOLIN 00 PM Medical 70/30 U-100 Branch INSULIN) 100 unit/mL (70-30) injection atorvastati 2020-0 Yes [id number] 80mg Take 1 [facility] n 80 mg 3-20 07 tablet by ity of tablet 00:00: mouth at [place] 00 bedtime. [facility] clopidogreL 2020-0 Yes [id number] 75mg Take 1 [facility] (PLAVIX) 75 3-20 tablet by ity of mg tablet 00:00: mouth [place] 00 daily. [facility] insulin NPH 2020-0 Yes [id number] Inject 84 [facility] and regular 3-20 units AM, ity of human 70-30 00:00: 84 units [place] (NOVOLIN 00 PM Medical 70/30 U-100 Branch INSULIN) 100 unit/mL (70-30) injection atorvastati 2020-0 Yes [id number] 80mg Take 1 [facility] n 80 mg 3-20 07 tablet by ity of tablet 00:00: mouth at [place] 00 bedtime. [facility] clopidogreL 2020-0 Yes [id number] 75mg Take 1 [facility] (PLAVIX) 75 3-20 tablet by ity of mg tablet 00:00: mouth [place] 00 daily. [facility] insulin NPH 2019-0 Yes [id number] Inject 84 [facility] and regular 3-20 units AM, ity of human 7030 00:00: 84 units [place] (NOVOLIN 00 PM Medical 70/30 U-100 Branch INSULIN) 100 unit/mL (70-30) injection atorvastati 2019-0 Yes [id number] 80mg Take 1 [facility] n 80 mg 3-20 07 tablet by ity of tablet 00:00: mouth at [place] 00 bedtime. [facility] clopidogreL 2020-0 Yes [id number] 75mg Take 1 [facility] (PLAVIX) 75 3-20 tablet by ity of mg tablet 00:00: mouth 00 daily. [facility] insulin NPH 2019-0 Yes [id number] Inject 84 [facility] and regular 3-20 units AM, ity of human 7030 00:00: 84 units [place] (NOVOLIN 00 PM Medical 70/30 U-100 Branch INSULIN) 100 unit/mL (70-30) injection atorvastati 2020-0 Yes [id number] 80mg Take 1 [facility] n 80 mg 3-20 07 tablet by ity of tablet 00:00: mouth at [place] 00 bedtime. [facility] clopidogreL 2020-0 Yes [id number] 75mg Take 1 [facility] (PLAVIX) 75 3-20 tablet by ity of mg tablet 00:00: mouth [place] 00 daily. [facility] insulin NPH 2019-0 Yes [id number] Inject 84 [facility] and regular 3-20 units AM, ity of human 7030 00:00: 84 units [place] (NOVOLIN 00 PM Medical 70/30 U-100 Branch INSULIN) 100 unit/mL (70-30) injection atorvastati 2020-0 Yes [id number] 80mg Take 1 [facility] n 80 mg 3-20 07 tablet by ity of tablet 00:00: mouth at [place] 00 bedtime. [facility] clopidogreL 2020-0 Yes [id number] 75mg Take 1 [facility] (PLAVIX) 75 3-20 tablet by ity of mg tablet 00:00: mouth [place] 00 daily. [facility] insulin NPH 2020-0 Yes [id number] Inject 84 [facility] and regular 3-20 units AM, ity of human 70-30 00:00: 84 units [place] (NOVOLIN 00 PM Medical 70/30 U-100 Branch INSULIN) 100 unit/mL (70-30) injection atorvastati 2020-0 Yes [id number] 80mg Take 1 [facility] n 80 mg 3-20 07 tablet by ity of tablet 00:00: mouth at [place] 00 bedtime. [facility] clopidogreL 2020-0 Yes [id number] 75mg Take 1 [facility] (PLAVIX) 75 3-20 tablet by ity of mg tablet 00:00: mouth [place] 00 daily. [facility] insulin NPH 2019-0 Yes [id number] Inject 84 [facility] and regular 3-20 units AM, ity of human 7030 00:00: 84 units [place] (NOVOLIN 00 PM Medical 70/30 U-100 Branch INSULIN) 100 unit/mL (70-30) injection atorvastati 2020-0 Yes [id number] 80mg Take 1 [facility] n 80 mg 3-20 07 tablet by ity of tablet 00:00: mouth at [place] 00 bedtime. [facility] clopidogreL 2020-0 Yes [id number] 75mg Take 1 [facility] (PLAVIX) 75 3-20 tablet by ity of mg tablet 00:00: mouth [place] 00 daily. [facility] insulin NPH 2020-0 Yes [id number] Inject 84 [facility] and regular 3-20 units AM, ity of human 70-30 00:00: 84 units [place] (NOVOLIN 00 PM Medical 70/30 U-100 Branch INSULIN) 100 unit/mL (70-30) injection atorvastati 2020-0 Yes [id number] 80mg Take 1 [facility] n 80 mg 3-20 07 tablet by ity of tablet 00:00: mouth at [place] 00 bedtime. [facility] clopidogreL 2020-0 Yes [id number] 75mg Take 1 [facility] (PLAVIX) 75 3-20 tablet by ity of mg tablet 00:00: mouth [place] 00 daily. [facility] insulin NPH 2019-0 Yes [id number] Inject 84 [facility] and regular 3-20 units AM, ity of human 7030 00:00: 84 units [place] (NOVOLIN 00 PM Medical 70/30 U-100 Branch INSULIN) 100 unit/mL (70-30) injection atorvastati 2020-0 Yes [id number] 80mg Take 1 [facility] n 80 mg 3-20 07 tablet by ity of tablet 00:00: mouth at bedtime. [facility] clopidogreL 2020-0 Yes [id number] 75mg Take 1 [facility] (PLAVIX) 75 3-20 tablet by ity of mg tablet 00:00: mouth 00 daily. [facility] insulin NPH 2019-0 Yes [id number] Inject 84 [facility] and regular 3-20 units AM, ity of human 00:00: 84 units [place] (NOVOLIN 00 PM Medical 70/30 U-100 Branch INSULIN) 100 unit/mL (70-30) injection atorvastati 2019-0 Yes [id number] 80mg Take 1 [facility] n 80 mg 3-20 tablet by ity of tablet 00:00: mouth at bedtime. [facility] clopidogreL 2020-0 Yes [id number] 75mg Take 1 [facility] (PLAVIX) 75 3-20 tablet by ity of mg tablet 00:00: mouth daily. [facility] insulin NPH 2019-0 Yes [id number] Inject 84 [facility] and regular 3-20 units AM, ity of human 00:00: 84 units [place] (NOVOLIN 00 PM Medical 70/30 U-100 Branch INSULIN) 100 unit/mL (70-30) injection atorvastati 2020-0 Yes [id number] 80mg Take 1 [facility] n 80 mg 3-20 tablet by ity of tablet 00:00: mouth at bedtime. [facility] clopidogreL 2020-0 Yes [id number] 75mg Take 1 [facility] (PLAVIX) 75 3-20 tablet by ity of mg tablet 00:00: mouth 00 daily. [facility] insulin NPH 2019-0 Yes [id number] Inject 84 [facility] and regular 3-20 units AM, ity of human 70-30 00:00: 84 units [place] (NOVOLIN 00 PM Medical 70/30 U-100 Branch INSULIN) 100 unit/mL (70-30) injection atorvastati 2020-0 Yes [id number] 80mg Take 1 [facility] n 80 mg 3-20 tablet by ity of tablet 00:00: mouth at [place] 00 bedtime. [facility] clopidogreL 2020-0 Yes [id number] 75mg Take 1 [facility] (PLAVIX) 75 3-20 tablet by ity of mg tablet 00:00: mouth [place] 00 daily. [facility] insulin NPH 2020-0 Yes [id number] Inject 84 [facility] and regular 3-20 units AM, ity of human 7030 00:00: 84 units [place] (NOVOLIN 00 PM Medical 70/30 U-100 Branch INSULIN) 100 unit/mL (70-30) injection atorvastati 2020-0 Yes [id number] 80mg Take 1 [facility] n 80 mg 3-20 tablet by ity of tablet 00:00: mouth at bedtime. [facility] clopidogreL 2019-0 Yes [id number] 75mg Take 1 [facility] (PLAVIX) 75 3-20 tablet by ity of mg tablet 00:00: mouth 00 daily. [facility] insulin NPH 2019-0 Yes [id number] Inject 84 [facility] and regular 3-20 units AM, ity of human 00:00: 84 units [place] (NOVOLIN 00 PM Medical 70/30 U-100 Branch INSULIN) 100 unit/mL (70-30) injection atorvastati 2019-0 Yes [id number] 80mg Take 1 [facility] n 80 mg 3-20 tablet by ity of tablet 00:00: mouth at [place] 00 bedtime. [facility] clopidogreL 2020-0 Yes [id number] 75mg Take 1 [facility] (PLAVIX) 75 3-20 tablet by ity of mg tablet 00:00: mouth [place] 00 daily. [facility] insulin NPH 2020-0 Yes [id number] Inject 84 [facility] and regular 3-20 units AM, ity of human 7030 00:00: 84 units [place] (NOVOLIN 00 PM Medical 70/30 U-100 Branch INSULIN) 100 unit/mL (70-30) injection atorvastati 2020-0 Yes [id number] 80mg Take 1 [facility] n 80 mg 3-20 tablet by ity of tablet 00:00: mouth at [place] 00 bedtime. [facility] clopidogreL 2020-0 Yes [id number] 75mg Take 1 [facility] (PLAVIX) 75 3-20 tablet by ity of mg tablet 00:00: mouth [place] 00 daily. [facility] insulin NPH 2020-0 Yes [id number] Inject 84 [facility] and regular 3-20 units AM, ity of human 70-30 00:00: 84 units [place] (NOVOLIN 00 PM Medical 70/30 U-100 Branch INSULIN) 100 unit/mL (70-30) injection atorvastati 2020-0 Yes [id number] 80mg Take 1 [facility] n 80 mg 3-20 tablet by ity of tablet 00:00: mouth at [place] 00 bedtime. [facility] clopidogreL 2020-0 Yes [id number] 75mg Take 1 [facility] (PLAVIX) 75 3-20 tablet by ity of mg tablet 00:00: mouth 00 daily. [facility] insulin NPH 2019-0 Yes [id number] Inject 84 [facility] and regular 3-20 units AM, ity of human 7030 00:00: 84 units [place] (NOVOLIN 00 PM Medical 70/30 U-100 Branch INSULIN) 100 unit/mL (70-30) injection atorvastati 2020-0 Yes [id number] 80mg Take 1 [facility] n 80 mg 3-20 tablet by ity of tablet 00:00: mouth at [place] 00 bedtime. [facility] clopidogreL 2020-0 Yes [id number] 75mg Take 1 [facility] (PLAVIX) 75 3-20 tablet by ity of mg tablet 00:00: mouth daily. [facility] insulin NPH 2020-0 Yes [id number] Inject 84 [facility] and regular 3-20 units AM, ity of human 7030 00:00: 84 units [place] (NOVOLIN 00 PM Medical 70/30 U-100 Branch INSULIN) 100 unit/mL (70-30) injection atorvastati 2020-0 Yes [id number] 80mg Take 1 [facility] n 80 mg 3-20 tablet by ity of tablet 00:00: mouth at [place] 00 bedtime. [facility] clopidogreL 2020-0 Yes [id number] 75mg Take 1 [facility] (PLAVIX) 75 3-20 tablet by ity of mg tablet 00:00: mouth [place] 00 daily. [facility] insulin NPH 2020-0 Yes [id number] Inject 84 [facility] and regular 3-20 units AM, ity of human 7030 00:00: 84 units [place] (NOVOLIN 00 PM Medical 70/30 U-100 Branch INSULIN) 100 unit/mL (70-30) injection atorvastati 2020-0 Yes [id number] 80mg Take 1 [facility] n 80 mg 3-20 tablet by ity of tablet 00:00: mouth at [place] 00 bedtime. [facility] clopidogreL 2020-0 Yes [id number] 75mg Take 1 [facility] (PLAVIX) 75 3-20 tablet by ity of mg tablet 00:00: mouth [place] 00 daily. [facility] insulin NPH 2020-0 Yes [id number] Inject 84 [facility] and regular 3-20 units AM, ity of human 7030 00:00: 84 units [place] (NOVOLIN 00 PM Medical 70/30 U-100 Branch INSULIN) 100 unit/mL (70-30) injection atorvastati 2020-0 Yes [id number] 80mg Take 1 [facility] n 80 mg 3-20 tablet by ity of tablet 00:00: mouth at [place] 00 bedtime. [facility] clopidogreL 2020-0 Yes [id number] 75mg Take 1 [facility] (PLAVIX) 75 3-20 tablet by ity of mg tablet 00:00: mouth [place] 00 daily. [facility] insulin NPH 2019-0 Yes [id number] Inject 84 [facility] and regular 3-20 units AM, ity of human 00:00: 84 units [place] (NOVOLIN 00 PM Medical 70/30 U-100 Branch INSULIN) 100 unit/mL (70-30) injection atorvastati 2020-0 Yes [id number] 80mg Take 1 [facility] n 80 mg 3-20 tablet by ity of tablet 00:00: mouth at [place] 00 bedtime. [facility] clopidogreL 2020-0 Yes [id number] 75mg Take 1 [facility] (PLAVIX) 75 3-20 tablet by ity of mg tablet 00:00: mouth [place] 00 daily. [facility] insulin NPH 2020-0 Yes [id number] Inject 84 [facility] and regular 3-20 units AM, ity of human 7030 00:00: 84 units [place] (NOVOLIN 00 PM Medical 70/30 U-100 Branch INSULIN) 100 unit/mL (70-30) injection atorvastati 2020-0 Yes [id number] 80mg Take 1 [facility] n 80 mg 3-20 tablet by ity of tablet 00:00: mouth at [place] 00 bedtime. [facility] clopidogreL 2020-0 Yes [id number] 75mg Take 1 [facility] (PLAVIX) 75 3-20 tablet by ity of mg tablet 00:00: mouth [place] 00 daily. [facility] insulin NPH 2020-0 Yes [id number] Inject 84 [facility] and regular 3-20 units AM, ity of human 70-30 00:00: 84 units [place] (NOVOLIN 00 PM Medical 70/30 U-100 Branch INSULIN) 100 unit/mL (70-30) injection atorvastati 2020-0 Yes [id number] 80mg Take 1 [facility] n 80 mg 3-20 tablet by ity of tablet 00:00: mouth at [place] 00 bedtime. [facility] clopidogreL 2020-0 Yes [id number] 75mg Take 1 [facility] (PLAVIX) 75 3-20 tablet by ity of mg tablet 00:00: mouth 00 daily. [facility] insulin NPH 2019-0 Yes [id number] Inject 84 [facility] and regular 3-20 units AM, ity of human 7030 00:00: 84 units [place] (NOVOLIN 00 PM Medical 70/30 U-100 Branch INSULIN) 100 unit/mL (70-30) injection atorvastati 2020-0 Yes [id number] 80mg Take 1 [facility] n 80 mg 3-20 tablet by ity of tablet 00:00: mouth at [place] 00 bedtime. [facility] clopidogreL 2020-0 Yes [id number] 75mg Take 1 [facility] (PLAVIX) 75 3-20 tablet by ity of mg tablet 00:00: mouth daily. [facility] insulin NPH 2020-0 Yes [id number] Inject 84 [facility] and regular 3-20 units AM, ity of human 7030 00:00: 84 units [place] (NOVOLIN 00 PM Medical 70/30 U-100 Branch INSULIN) 100 unit/mL (70-30) injection atorvastati 2020-0 Yes [id number] 80mg Take 1 [facility] n 80 mg 3-20 tablet by ity of tablet 00:00: mouth at [place] 00 bedtime. [facility] clopidogreL 2020-0 Yes [id number] 75mg Take 1 [facility] (PLAVIX) 75 3-20 tablet by ity of mg tablet 00:00: mouth [place] 00 daily. [facility] insulin NPH 2020-0 Yes [id number] Inject 84 [facility] and regular 3-20 units AM, ity of human 70-30 00:00: 84 units [place] (NOVOLIN 00 PM Medical 70/30 U-100 Branch INSULIN) 100 unit/mL (70-30) injection atorvastati 2020-0 Yes [id number] 80mg Take 1 [facility] n 80 mg 3-20 tablet by ity of tablet 00:00: mouth at [place] 00 bedtime. [facility] clopidogreL 2020-0 Yes [id number] 75mg Take 1 [facility] (PLAVIX) 75 3-20 tablet by ity of mg tablet 00:00: mouth [place] 00 daily. [facility] insulin NPH 2019-0 Yes [id number] Inject 84 [facility] and regular 3-20 units AM, ity of human 00:00: 84 units [place] (NOVOLIN 00 PM Medical 70/30 U-100 Branch INSULIN) 100 unit/mL (70-30) injection atorvastati 2019-0 Yes [id number] 80mg Take 1 [facility] n 80 mg 3-20 tablet by ity of tablet 00:00: mouth at [place] 00 bedtime. [facility] clopidogreL 2020-0 Yes [id number] 75mg Take 1 [facility] (PLAVIX) 75 3-20 tablet by ity of mg tablet 00:00: mouth 00 daily. [facility] insulin NPH 2019-0 Yes [id number] Inject 84 [facility] and regular 3-20 units AM, ity of human 00:00: 84 units [place] (NOVOLIN 00 PM Medical 70/30 U-100 Branch INSULIN) 100 unit/mL (70-30) injection atorvastati 2020-0 Yes [id number] 80mg Take 1 [facility] n 80 mg 3-20 tablet by ity of tablet 00:00: mouth at [place] 00 bedtime. [facility] clopidogreL 2020-0 Yes [id number] 75mg Take 1 [facility] (PLAVIX) 75 3-20 tablet by ity of mg tablet 00:00: mouth [place] 00 daily. [facility] insulin NPH 2020-0 Yes [id number] Inject 84 [facility] and regular 3-20 units AM, ity of human 00:00: 84 units [place] (NOVOLIN 00 PM Medical 70/30 U-100 Branch INSULIN) 100 unit/mL (70-30) injection atorvastati 2020-0 Yes [id number] 80mg Take 1 [facility] n 80 mg 3-20 tablet by ity of tablet 00:00: mouth at [place] 00 bedtime. [facility] clopidogreL 2020-0 Yes [id number] 75mg Take 1 [facility] (PLAVIX) 75 3-20 tablet by ity of mg tablet 00:00: mouth [place] 00 daily. [facility] insulin NPH 2020-0 Yes [id number] Inject 84 [facility] and regular 3-20 units AM, ity of human 70-30 00:00: 84 units [place] (NOVOLIN 00 PM Medical 70/30 U-100 Branch INSULIN) 100 unit/mL (70-30) injection atorvastati 2020-0 Yes [id number] 80mg Take 1 [facility] n 80 mg 3-20 tablet by ity of tablet 00:00: mouth at [place] 00 bedtime. [facility] clopidogreL 2020-0 Yes [id number] 75mg Take 1 [facility] (PLAVIX) 75 3-20 tablet by ity of mg tablet 00:00: mouth 00 daily. [facility] insulin NPH 2019-0 Yes [id number] Inject 84 [facility] and regular 3-20 units AM, ity of human 7030 00:00: 84 units [place] (NOVOLIN 00 PM Medical 70/30 U-100 Branch INSULIN) 100 unit/mL (70-30) injection atorvastati 2020-0 Yes [id number] 80mg Take 1 [facility] n 80 mg 3-20 tablet by ity of tablet 00:00: mouth at [place] 00 bedtime. [facility] clopidogreL 2020-0 Yes [id number] 75mg Take 1 [facility] (PLAVIX) 75 3-20 tablet by ity of mg tablet 00:00: mouth daily. [facility] insulin NPH 2020-0 Yes [id number] Inject 84 [facility] and regular 3-20 units AM, ity of human 7030 00:00: 84 units [place] (NOVOLIN 00 PM Medical 70/30 U-100 Branch INSULIN) 100 unit/mL (70-30) injection atorvastati 2020-0 Yes [id number] 80mg Take 1 [facility] n 80 mg 3-20 tablet by ity of tablet 00:00: mouth at [place] 00 bedtime. [facility] clopidogreL 2020-0 Yes [id number] 75mg Take 1 [facility] (PLAVIX) 75 3-20 tablet by ity of mg tablet 00:00: mouth [place] 00 daily. [facility] insulin NPH 2020-0 Yes [id number] Inject 84 [facility] and regular 3-20 units AM, ity of human 70-30 00:00: 84 units [place] (NOVOLIN 00 PM Medical 70/30 U-100 Branch INSULIN) 100 unit/mL (70-30) injection atorvastati 2020-0 Yes [id number] 80mg Take 1 [facility] n 80 mg 3-20 tablet by ity of tablet 00:00: mouth at [place] 00 bedtime. [facility] clopidogreL 2020-0 Yes [id number] 75mg Take 1 [facility] (PLAVIX) 75 3-20 tablet by ity of mg tablet 00:00: mouth [place] 00 daily. [facility] insulin NPH 2019-0 Yes [id number] Inject 84 [facility] and regular 3-20 units AM, ity of human 70 00:00: 84 units [place] (NOVOLIN 00 PM Medical 70/30 U-100 Branch INSULIN) 100 unit/mL (70-30) injection atorvastati 2020-0 Yes [id number] 80mg Take 1 [facility] n 80 mg 3-20 tablet by ity of tablet 00:00: mouth at bedtime. [facility] clopidogreL 2020-0 Yes [id number] 75mg Take 1 [facility] (PLAVIX) 75 3-20 tablet by ity of mg tablet 00:00: mouth daily. [facility] insulin NPH 2019-0 Yes [id number] Inject 84 [facility] and regular 3-20 units AM, ity of human 00:00: 84 units [place] (NOVOLIN 00 PM Medical 70/30 U-100 Branch INSULIN) 100 unit/mL (70-30) injection atorvastati 2020-0 Yes [id number] 80mg Take 1 [facility] n 80 mg 3-20 tablet by ity of tablet 00:00: mouth at [place] bedtime. [facility] clopidogreL 2020-0 Yes [id number] 75mg Take 1 [facility] (PLAVIX) 75 3-20 tablet by ity of mg tablet 00:00: mouth 00 daily. [facility] insulin NPH 2020-0 Yes [id number] Inject 84 [facility] and regular 3-20 units AM, ity of human 70 00:00: 84 units [place] (NOVOLIN 00 PM Medical 70/30 U-100 Branch INSULIN) 100 unit/mL (70-30) injection atorvastati 2020-0 Yes [id number] 80mg Take 1 [facility] n 80 mg 3-20 tablet by ity of tablet 00:00: mouth at [place] 00 bedtime. [facility] clopidogreL 2020-0 Yes [id number] 75mg Take 1 [facility] (PLAVIX) 75 3-20 tablet by ity of mg tablet 00:00: mouth [place] 00 daily. [facility] insulin NPH 2020-0 Yes [id number] Inject 84 [facility] and regular 3-20 units AM, ity of human 7030 00:00: 84 units [place] (NOVOLIN 00 PM Medical 70/30 U-100 Branch INSULIN) 100 unit/mL (70-30) injection atorvastati 2020-0 Yes [id number] 80mg Take 1 [facility] n 80 mg 3-20 tablet by ity of tablet 00:00: mouth at [place] 00 bedtime. [facility] clopidogreL 2020-0 Yes [id number] 75mg Take 1 [facility] (PLAVIX) 75 3-20 tablet by ity of mg tablet 00:00: mouth 00 daily. [facility] insulin NPH 2019-0 Yes [id number] Inject 84 [facility] and regular 3-20 units AM, ity of human 00:00: 84 units [place] (NOVOLIN 00 PM Medical 70/30 U-100 Branch INSULIN) 100 unit/mL (70-30) injection atorvastati 2020-0 Yes [id number] 80mg Take 1 [facility] n 80 mg 3-20 tablet by ity of tablet 00:00: mouth at [place] bedtime. [facility] clopidogreL 2020-0 Yes [id number] 75mg Take 1 [facility] (PLAVIX) 75 3-20 tablet by ity of mg tablet 00:00: mouth daily. [facility] insulin NPH 2020-0 Yes [id number] Inject 84 [facility] and regular 3-20 units AM, ity of human 7030 00:00: 84 units [place] (NOVOLIN 00 PM Medical 70/30 U-100 Branch INSULIN) 100 unit/mL (70-30) injection atorvastati 2020-0 Yes [id number] 80mg Take 1 [facility] n 80 mg 3-20 tablet by ity of tablet 00:00: mouth at [place] 00 bedtime. [facility] clopidogreL 2020-0 Yes [id number] 75mg Take 1 [facility] (PLAVIX) 75 3-20 tablet by ity of mg tablet 00:00: mouth 00 daily. [facility] insulin NPH 2020-0 Yes [id number] Inject 84 [facility] and regular 3-20 units AM, ity of human 70-30 00:00: 84 units [place] (NOVOLIN 00 PM Medical 70/30 U-100 Branch INSULIN) 100 unit/mL (70-30) injection atorvastati 2020-0 Yes [id number] 80mg Take 1 [facility] n 80 mg 3-20 tablet by ity of tablet 00:00: mouth at [place] 00 bedtime. [facility] clopidogreL 2020-0 Yes [id number] 75mg Take 1 [facility] (PLAVIX) 75 3-20 tablet by ity of mg tablet 00:00: mouth 00 daily. [facility] insulin NPH 2019-0 Yes [id number] Inject 84 [facility] and regular 3-20 units AM, ity of human 00:00: 84 units [place] (NOVOLIN 00 PM Medical 70/30 U-100 Branch INSULIN) 100 unit/mL (70-30) injection atorvastati 2020-0 Yes [id number] 80mg Take 1 [facility] n 80 mg 3-20 tablet by ity of tablet 00:00: mouth at [place] bedtime. [facility] clopidogreL 2020-0 Yes [id number] 75mg Take 1 [facility] (PLAVIX) 75 3-20 tablet by ity of mg tablet 00:00: mouth daily. [facility] insulin NPH 2019-0 Yes [id number] Inject 84 [facility] and regular 3-20 units AM, ity of human 00:00: 84 units [place] (NOVOLIN 00 PM Medical 70/30 U-100 Branch INSULIN) 100 unit/mL (70-30) injection atorvastati 2020-0 Yes [id number] 80mg Take 1 [facility] n 80 mg 3-20 tablet by ity of tablet 00:00: mouth at [place] bedtime. [facility] clopidogreL 2020-0 Yes [id number] 75mg Take 1 [facility] (PLAVIX) 75 3-20 tablet by ity of mg tablet 00:00: mouth 00 daily. [facility] insulin NPH 2020-0 Yes [id number] Inject 84 [facility] and regular 3-20 units AM, ity of human 00:00: 84 units [place] (NOVOLIN 00 PM Medical 70/30 U-100 Branch INSULIN) 100 unit/mL (70-30) injection atorvastati 2020-0 Yes [id number] 80mg Take 1 [facility] n 80 mg 3-20 tablet by ity of tablet 00:00: mouth at [place] 00 bedtime. [facility] clopidogreL 2020-0 Yes [id number] 75mg Take 1 [facility] (PLAVIX) 75 3-20 tablet by ity of mg tablet 00:00: mouth [place] 00 daily. [facility] insulin NPH 2020-0 Yes [id number] Inject 84 [facility] and regular 3-20 units AM, ity of human 7030 00:00: 84 units [place] (NOVOLIN 00 PM Medical 70/30 U-100 Branch INSULIN) 100 unit/mL (70-30) injection atorvastati 2020-0 Yes [id number] 80mg Take 1 [facility] n 80 mg 3-20 tablet by ity of tablet 00:00: mouth at [place] 00 bedtime. [facility] clopidogreL 2020-0 Yes [id number] 75mg Take 1 [facility] (PLAVIX) 75 3-20 tablet by ity of mg tablet 00:00: mouth daily. [facility] insulin NPH 2019-0 Yes [id number] Inject 84 [facility] and regular 3-20 units AM, ity of human 7030 00:00: 84 units [place] (NOVOLIN 00 PM Medical 70/30 U-100 Branch INSULIN) 100 unit/mL (70-30) injection atorvastati 2020-0 Yes [id number] 80mg Take 1 [facility] n 80 mg 3-20 tablet by ity of tablet 00:00: mouth at [place] bedtime. [facility] clopidogreL 2020-0 Yes [id number] 75mg Take 1 [facility] (PLAVIX) 75 3-20 tablet by ity of mg tablet 00:00: mouth daily. [facility] insulin NPH 2020-0 Yes [id number] Inject 84 [facility] and regular 3-20 units AM, ity of human 7030 00:00: 84 units [place] (NOVOLIN 00 PM Medical 70/30 U-100 Branch INSULIN) 100 unit/mL (70-30) injection atorvastati 2020-0 Yes [id number] 80mg Take 1 [facility] n 80 mg 3-20 tablet by ity of tablet 00:00: mouth at [place] 00 bedtime. [facility] clopidogreL 2020-0 Yes [id number] 75mg Take 1 [facility] (PLAVIX) 75 3-20 tablet by ity of mg tablet 00:00: mouth 00 daily. [facility] insulin NPH 2020-0 Yes [id number] Inject 84 [facility] and regular 3-20 units AM, ity of human 70-30 00:00: 84 units [place] (NOVOLIN 00 PM Medical 70/30 U-100 Branch INSULIN) 100 unit/mL (70-30) injection atorvastati 2020-0 Yes [id number] 80mg Take 1 [facility] n 80 mg 3-20 tablet by ity of tablet 00:00: mouth at [place] 00 bedtime. Medical Branch clopidogreL 2020-0 Yes [id number] 75mg Take 1 Univers (PLAVIX) 75 3-20 tablet by ity of mg tablet 00:00: mouth [place] 00 daily. Medical Branch insulin NPH 2019-0 Yes [id number] Inject 84 Univers and regular 3-20 units AM, ity of human 70-30 00:00: 84 units [place] (NOVOLIN 00 PM Medical 70/30 U-100 Branch INSULIN) 100 unit/mL (70-30) injection atorvastati 2019-0 Yes [id number] 80mg Take 1 [facility] n 80 mg 3-20 tablet by ity of tablet 00:00: mouth at [place] 00 bedtime. Medical Branch clopidogreL 2020-0 Yes [id number] 75mg Take 1 Univers (PLAVIX) 75 3-20 tablet by ity of mg tablet 00:00: mouth [place] 00 daily. Medical Branch atorvastati 2020-0 Yes [id number] 80mg Take 1 [facility] n 80 mg 3-20 tablet by ity of tablet 00:00: mouth at [place] 00 bedtime. Medical Branch clopidogreL 2020-0 Yes [id number] 75mg Take 1 [facility] (PLAVIX) 75 3-20 tablet by ity of mg tablet 00:00: mouth 00 daily. Medical Branch atorvastati 2020-0 Yes [id number] 80mg Take 1 [facility] n 80 mg 3-20 tablet by ity of tablet 00:00: mouth at [place] 00 bedtime. Medical Branch clopidogreL 2020-0 Yes [id number] 75mg Take 1 Univers (PLAVIX) 75 3-20 tablet by ity of mg tablet 00:00: mouth [place] 00 daily. Medical Branch atorvastati 2020-0 Yes [id number] 80mg Take 1 [facility] n 80 mg 3-20 tablet by ity of tablet 00:00: mouth at [place] 00 bedtime. Medical Branch clopidogreL 2020-0 Yes [id number] 75mg Take 1 Univers (PLAVIX) 75 3-20 tablet by ity of mg tablet 00:00: mouth [place] 00 daily. Medical Branch atorvastati 2020-0 Yes [id number] 80mg Take 1 [facility] n 80 mg 3-20 tablet by ity of tablet 00:00: mouth at [place] 00 bedtime. Medical Branch clopidogreL 2020-0 Yes [id number] 75mg Take 1 Univers (PLAVIX) 75 3-20 tablet by ity of mg tablet 00:00: mouth [place] 00 daily. Medical Branch atorvastati 2020-0 Yes [id number] 80mg Take 1 [facility] n 80 mg 3-20 tablet by ity of tablet 00:00: mouth at [place] 00 bedtime. Medical Branch clopidogreL 2020-0 Yes [id number] 75mg Take 1 Univers (PLAVIX) 75 3-20 tablet by ity of mg tablet 00:00: mouth [place] 00 daily. Medical Branch clopidogreL 2020-0 Yes [id number] 75mg Take 1 [facility] (PLAVIX) 75 3-20 tablet by ity of mg tablet 00:00: mouth [place] 00 daily. Medical Branch clopidogreL 2020-0 Yes [id number] 75mg Take 1 [facility] (PLAVIX) 75 3-20 tablet by ity of mg tablet 00:00: mouth [place] 00 daily. Medical Branch clopidogreL 2020-0 Yes [id number] 75mg Take 1 [facility] (PLAVIX) 75 3-20 tablet by ity of mg tablet 00:00: mouth [place] 00 daily. Medical Branch clopidogreL 2020-0 Yes [id number] 75mg Take 1 [facility] (PLAVIX) 75 3-20 tablet by ity of mg tablet 00:00: mouth [place] 00 daily. Medical Branch clopidogreL 2020-0 Yes [id number] 75mg Take 1 [facility] (PLAVIX) 75 3-20 tablet by ity of mg tablet 00:00: mouth [place] 00 daily. Medical Branch clopidogreL 2020-0 Yes [id number] 75mg Take 1 Univers (PLAVIX) 75 3-20 tablet by ity of mg tablet 00:00: mouth [place] 00 daily. Medical Branch clopidogreL 2020-0 Yes [id number] 75mg Take 1 [facility] (PLAVIX) 75 3-20 tablet by ity of mg tablet 00:00: mouth [place] 00 daily. [facility] Branch clopidogreL 2020-0 Yes [id number] 75mg Take 1 Univers (PLAVIX) 75 3-20 tablet by ity of mg tablet 00:00: mouth [place] 00 daily. [facility] Branch clopidogreL 2020-0 Yes [id number] 75mg Take 1 Univers (PLAVIX) 75 3-20 tablet by ity of mg tablet 00:00: mouth [place] 00 daily. Medical Branch clopidogreL 2020-0 Yes [id number] 75mg Take 1 Univers (PLAVIX) 75 3-20 tablet by ity of mg tablet 00:00: mouth [place] 00 daily. Medical Branch clopidogreL 2020-0 Yes [id number] 75mg Take 1 Univers (PLAVIX) 75 3-20 tablet by ity of mg tablet 00:00: mouth [place] 00 daily. Medical Branch clopidogreL 2020-0 Yes [id number] 75mg Take 1 Univers (PLAVIX) 75 3-20 tablet by ity of mg tablet 00:00: mouth [place] 00 daily. Medical Branch insulin NPH 2019-0 Yes [id number] Inject 84 [facility] and regular 3-20 units AM, ity of human 70-30 00:00: 84 units [place] (NOVOLIN 00 PM Medical 70/30 U-100 Branch INSULIN) 100 unit/mL (70-30) injection atorvastati 2019-0 Yes [id number] 80mg Take 1 [facility] n 80 mg 3-20 07 tablet by ity of tablet 00:00: mouth at [place] 00 bedtime. Medical Branch clopidogreL 2019-0 Yes [id number] 75mg Take 1 [facility] (PLAVIX) 75 3-20 tablet by ity of mg tablet 00:00: mouth [place] 00 daily. Medical Branch insulin NPH 2019-0 Yes [id number] Inject 84 Univers and regular 3-20 units AM, ity of human 70-30 00:00: 84 units [place] (NOVOLIN 00 PM Medical 70/30 U-100 Branch INSULIN) 100 unit/mL (70-30) injection atorvastati 2019-0 Yes [id number] 80mg Take 1 Univers n 80 mg [...] stent daily. Medical placement Branch clopidogreL 2020-0 2020- No [id number] 75mg Take 1 Univers (PLAVIX) 75 3-20 07-06 tablet by it y of mg tablet 00:00: 00:00 mouth [place] 00 :00 daily. Medical Branch atorvastati 2020- No [id number] 80mg Take 1 Univers n 80 mg 3-20 -06 tablet by ity of tablet 00:00: 00:00 mouth at [place] 00 :00 bedtime. Medical Branch atorvastati 2020- No [id number] 80mg Take 1 [facility] n 80 mg 3-20 -06 tablet by ity of tablet 00:00: 00:00 mouth at [place] 00 :00 bedtime. Medical Branch atorvastati 2020- No Coronary 80mg Take 1 Univers n 80 mg 3-20 -06 artery tablet by ity of tablet 00:00: 00:00 disease mouth at [place] 00 :00 involving bedtime. Medica l [place] [facility] coronary artery of [place] heart without angina pectoris atorvastati 2020- No Coronary 80mg Take 1 [facility] n 80 mg 3-20 -06 artery tablet by ity of tablet 00:00: 00:00 disease mouth at [place] 00 :00 involving bedtime. Medica l [place] [facility] coronary artery of [place] heart without angina pectoris insulin NPH 2020- No [id number] Inject 84 Univers and regular 3- 04-12 units AM, it y of human [...] ity of mg 18:45: 17:57 ONCE, 1 [place] 00 :00 dose, [facility] 08/15/19 at Branch 1345, Routine insulin Yes 34U 34 Units, Unive rs glargine 08-14 Subcutaneo ity o f (LANTUS 17:00: us, [...] at 1200, Until Discontinu ed, Routine Sliding 2020-0 Yes Subcutaneo Univ ers Scale 3- us, Q3H, ity of Insulin - 16:45: First dose [place] Aspart 00 on [facility] (NOVOLOG) + 08/15/19 at Br anch Fsbg 1145, Testing Until Discontinu ed, Routine heparin 2019-0 2020- No Slow IV Univer s 1,000 08-14 Push, ity of unit/mL 15:42: 15:42 TITRATE - [place] injection 09 :09 FOR Medical PROCEDURE Branch USE, 1 dose, Starting [facility] 08/15/19 at 1042, Until [place] 08/15/19 at 1042, Routine ticagrelor 2020-0 2020- No Oral, Unive rs (BRILINTA) 08-14 TITRATE - ity of tablet 15:40: 15:40 FOR [place] 32 :32 PROCEDURE Medical USE, 1 Branch dose, Starting [facility] 08/15/19 at 1040, Until [facility] 08/15/19 at 1040, Routine FENTanyl PF 2019-0 2019- No Slow IV Un cal[place] (SUBLIMAZE 08-14 Push, ity of (PF)) 15:40: 15:40 TITRATE - [place] injection 16 :16 FOR Medical PROCEDURE Branch USE, 1 dose, Starting [place] 08/15/19 at 1040, Until [place] 08/15/19 at 1040, Routine heparin 2020-0 2020- No Slow IV Univer s 1,000 08-14 Push, ity of unit/mL 14:45: 14:45 TITRATE - [place] injection 11 :11 FOR Medical PROCEDURE Branch USE, 1 dose, Starting [place] 08/15/19 at 0945, Until [place] 08/15/19 at 0945, Routine FENTanyl PF 2019-0 2020- No Slow IV Un cali (SUBLIMAZE 08-14 Push, ity of (PF)) 14:41: 14:41 TITRATE - [place] injection 26 :26 FOR Medical PROCEDURE Branch USE, 1 dose, Starting [place] 08/15/19 at 0941, Until Seme 08/15/19 at 0941, Routine heparin 2019- No [...] ity o f injection 14:05: 14:05 FOR [place] 50 :50 PROCEDURE Medical USE, 1 Branch dose, Starting [facility] 08/15/19 at 0905, Until [place] 08/15/19 at 0905, Routine azithromyci 2019-0 2020- No 250mg 250 mg, U nivers n 08-14 Oral, ity of (ZITHROMAX) 14:00: 13:59 DAILY, 4 [place] tablet 250 00 :00 doses, Medical mg First dose Branch on [facility] 08/15/19 at 0900, Last dose on 08/18/19 at 0900, TRANG
Re ason for Anti-Infec tive: Empiric Therapy for Suspected Infection< br>Empiric Therapy Site: Respirator y
Durat ion of therapy: 72 hours magnesium 2020-0 2020- No 4g 4 g, IV Univ ers sulfate in 08-14 Piggyback, it y of water 4 12:45: 01:35 ONCE, 1 [place] gram/50 mL 00 :00 dose, [facility] Medi blanquita (8 %) IV 08/15/[address] [facility] h Piggyback 4 0745, g Routine ipratropium 2019-0 Yes 3mL 3 mL, Unive rs -albuterol 08-14 Inhalation ity of (DUONEB) 10:24: , QID, [place] 0.5 mg-3 00 First dose Medic al mg(2.5 mg on [facility] Branch base)/3 mL 08/15/19 at nebulizer 0530, solution 3 Until mL Discontinu ed, Routine Sliding 2019-0 2020- No Subcutaneo Uni vers Scale 08-14 [...] No 10U 10 Units, Univ ers regular 08-14 Subcutaneo ity o f human 03:33: 03:38 us, ONCE, [place] (HUMULIN R) 00 :00 1 dose, Medic al injection Wed Branch 10 Units 08/14/19 at 2245, Routine insulin 2020-0 2020- No 8U 8 Units, Unive rs regular 08-13 Slow IV ity of human 22:00: 21:23 Push, [place] (HUMULIN R) 00 :00 ONCE, 1 Medic al injection 8 dose, Wed Bra nch Units 08/14/19 at 1700, Routine sulfur 2019-0 2020- No 5mL 5 mL, Univers hexafluorid 08-13 Intravenou i ty of e microsphr 17:15: 14:00 s, ONCE, 1 [place] (LUMASON) 00 :00 dose, Wed Medic al injection 5 08/14/19 at Br anch mL 1215, Routine Sliding 2019-0 2020- No Subcutaneo Uni vers Scale 08-13 us, Q3H, ity of Insulin - 17:00: 02:17 First dose [place] Aspart 00 :46 on Mon Medical (NOVOLOG) + 08/14/19 at Br anch Fsbg 1200, Testing Until Discontinu ed, Routine clopidogreL 2020-0 Yes 75mg 75 mg, Univ ers (PLAVIX) 18 Oral, ity of tablet 75 14:00: DAILY, [place] 00 First dose Medical on Mon Branch 08/14/19 at 0900, Until Discontinu ed, Routine aspirin EC 2020-0 Yes 81mg 81 mg, Unive rs tablet 81 18 Oral, ity of mg 14:00: DAILY, [place] 00 First dose Medical on Mon Branch 08/14/19 at 0900, Until Discontinu ed, Routine predniSONE 2019-0 2020- No 40mg 40 mg, Univ ers (DELTASONE) 08-13 Oral, ity of tablet 40 14:00: 12:54 DAILY, 5 [place] mg 00 :29 doses, Medical First dose Branch on Mon08/14/19 at 0900, Last dose on Mon08/18/19 at 0900, Routine insulin 2020- 2020- No .25U/kg 20 Units Un cali glargine 08-13d (rounded ity of (LANTUS 14:00: 06:45 from [place] U-100) 00 :18 20.175 Medical injection Units [...] Routine ipratropium 2019- No 3mL 3 mL, [facility] ers -albuterol 08-13 Inhalation it y of (DUONEB) 13:00: 10:24 , QID, [place] 0.5 mg-3 00 :42 First dose Medic [...] ity of RAPID 12:30: 06:45 from 6.725 [place] (NOVOLOG) 00 :18 Units = Medical injection 7 0.25 Branch Units Units/kg/d ay ?80.7 kg), [facility], First dose on Mon08/14/19 at 0730, Until Discontinu ed, Routine magnesium 2019-0 2020- No 4g 4 g, IV Univ ers sulfate in 08-13 Piggyback, it y of water 4 12:15: 14:00 ONCE, 1 [place] gram/50 mL 00 :00 dose, Mon Medi blanquita (8 %) IV 08/14/[address] [facility] h Piggyback 4 0715, g Routine dextrose 2019-0 Yes 250mL 250 mL, IV Un cali 10% (D10W) 08-13 Infusion, ity of bolus 12:06: PRN - SEE [place] infusion 49 INSTRUCTIO Medic al 250 mL NS, AMS Branch and BG <70, Starting 08/14/19 at 0706
De xtrose 10% 250 [...] KIT) 55 Starting Medical injection 1 Mon [place] mg 08/14/19 at 0705, Until Discontinu ed, TRANG, Blood Glucose < or = 70 mg/dL and patient is unable to swallow or has mental changes. morpHINE 2020- No 2mg 2 mg, Slow Un cali injection 2 08-13 IV Push, ity of mg 11:45: 10:43 ONCE, 1 [place] 00 :00 dose, Mon Medical 08/14/19 at [place] 0645, Routine atorvastati 2019-0 2020- No 40mg 40 mg, Uni vers n (LIPITOR) 08-13 Oral, QHS, i ty of tablet 40 02:00: 14:33 First dose [place] mg 00 :04 on [facility] Medical 08/13/19 at [place] 2100, Until Discontinu ed, Routine Sliding 2019-0 2020- No Subcutaneo Uni vers Scale 08-12 us, TID ity of Insulin - 22:00: 12:09 MEALS+HS, [place] Aspart 00 :18 First dose Medical (NOVOLOG) + on [facility] Fsbg 08/13/19 at Testing 1700, Until Discontinu ed, Routine dextrometho 2019-0 Yes 5mL 5 mL, [facility] rs rphan-guaif 08-12 Oral, ity of enesin 21:03: Q6HPRN, [place] (ROBITUSSIN 48 Starting Medi blanquita DM) 10-100 [facility] mg/5 mL 08/13/19 at solution 5 1603, mL Until Discontinu ed, Routine, Cough morpHINE 2019- No 4mg 4 mg, Slow Un cali injection 4 08-12 IV Push, ity of mg 21:00: 20:06 ONCE, 1 [place] 00 :00 dose, [facility] 08/13/19 at Branch 1600, Routine clopidogreL 2019- No 300mg 300 mg, U nivers (PLAVIX) 08-12 Oral, ity of tablet 300 20:30: 21:32 ONCE, 1 [place] mg 00 :00 dose, [facility] 08/13/19 at Branch 1530, Routine NaCl 0.9% 2019- No 500mL [facility] 08-12 mL/hr, IV ity of infusion 20:30: 19:41 Infusion, [place] 500 mL 00 :00 ONCE, 1 Medical dose, [facility] 08/13/19 at 1530, Routine
50 cc/hr for 500 mL total
HYDROcodone 2019- No 1{tbl} 1 tablet, Univers -acetaminop 08-12 Oral, ity of hen (NORCO 20:15: 02:39 ONCE, 1 [place] 5) 5-325 mg 00 :00 dose, [facility] Med ical tablet 1 08/13/[address] [facility] h tablet 1515, Routine FENTanyl PF 2020- No Slow IV Un cali (SUBLIMAZE 08-12 Push, ity of (PF)) 16:26: 16:26 TITRATE - [place] injection 15 :15 FOR Medical PROCEDURE Branch USE, 1 dose, Starting [facility] 08/13/19 at 1126, Until Mon08/13/19 at 1126, Routine midazolam 2019-0 2020- No IV Push, Uni vers (VERSED) 08-12 TITRATE - ity o f injection 16:26: 16:26 FOR [place] 05 :05 PROCEDURE Medical USE, 1 Branch dose, Starting [facility] 08/13/19 at 1126, Until [facility] 08/13/19 at 1126, Routine clopidogreL 2019-0 2020- No 300mg 300 mg, U nivers (PLAVIX) 08-12 Oral, ity of tablet 300 15:30: 15:48 ONCE, 1 [place] mg 00 :00 dose, [facility] Medical 08/13/19 at Branch 1030, Routine pantoprazol 2019-0 Yes 40mg 40 mg, Univ ers e 08-12 Oral, ity of (PROTONIX) 14:00: DAILY, [place] EC tablet 00 First dose Medi blanquita 40 mg on [facility] 08/13/19 at 0900, Until Discontinu ed, Routine isosorbide 2019-0 Yes 30mg 30 mg, Unive rs mononitrate 08-12 Oral, ity of (IMDUR) 24 14:00: DAILY, [place] hr tablet 00 First dose Medi blanquita 30 mg on [facility] 08/13/19 at 0900, Until Discontinu ed, Routine furosemide 2019-0 Yes 20mg 20 mg, Unive rs (LASIX) 08-12 Oral, ity of tablet 20 14:00: DAILY, [place] mg 00 First dose Medical on [facility] 08/13/19 at 0900, Until Discontinu ed, Routine insulin NPH 2019- 2020- No .3U/kg/ 12 Units Univers (HUMULIN N) 08-12 d (rounded ity of injection 14:00: 12:08 from [place] 12 Units 00 :24 12.195 Medical Units = Branch 0.3 Units/kg/d ay ?81.3 kg), Subcutaneo us, QAM+HS, First dose on [facility] 08/13/19 at 0900, Until Discontinu ed, Routine metoprolol 2019-0 2020- No 25mg 25 mg, Univ ers tartrate 08-12 Oral, ity of (LOPRESSOR) 14:00: 12:10 DAILY, [place] tablet 25 00 :23 First dose Medi blanquita mg on [facility] 08/13/19 at 0900, Until Discontinu ed, Routine aspirin EC 2019- 2020- No 81mg 81 mg, Univ ers tablet 81 08-12 Oral, ity of mg 14:00: 13:38 DAILY, [place] 00 :12 First dose Medical on [facility] 08/13/19 at 0900, Until Discontinu ed, Routine gabapentin 2020-0 Yes 800mg 800 mg, Uni vers (NEURONTIN) 08-12 Oral, TID, it y of tablet 800 13:00: First dose [place] mg 00 on [facility] Medical 08/13/19 at Branch 0800, Until Discontinu ed, Routine insulin 2019- 2020- No .3U/kg/ 8 Units Uni vers aspart 08-1218 d (rounded ity of RAPID 13:00: 12:08 from 8.13 [place] (NOVOLOG) 00 :24 Units = Medical injection 8 0.3 Branch Units Units/kg/d ay ?81.3 kg), Subcutaneo us, TID MEALS, First dose on [facility] 08/13/19 at 0800, Until Discontinu ed, Routine heparin 2019-0 2020- No 12U/kg/ 12 Univer s 25,000 08-12 h Units/kg/h ity of units/250mL 10:45: 18:00 r ?81.3 kg [place] in NS 00 :11 (9.756 Medical weight mL/hr, Branch based rounded to dosing ACS 9.76 protocol mL/hr), IV Infusion, CONTINUOUS , Starting Mon08/13/19 at 0545, Until [place] 08/15/19 at 1300 magnesium 2019-2019- No 4g 4 g, IV Univ ers sulfate in 08-12 Piggyback, it y of water 4 10:30: 10:53 ONCE, 1 [place] gram/50 mL 00 :00 dose, Mon Medi blanquita (8 %) IV 08/13/19 at Branc h Piggyback 4 0530, g Routine heparin 2020-0 2020- No 4000U 4,000 Univers 1000 08-12 Units, IV ity of unit/mL 09:45: 12:17 Push, [place] injection 00 :00 ONCE, 1 Medical Soln 4,000 dose, Mon [facility] ch Units 08/13/19 at 0500, Routine heparin 2020-0 Yes 3000U FOR Univers (1,000 08-12 REBOLUSING ity of unit/mL, 10 09:43: , Starting [place] mL vial) 08 [facility] for 08/13/19 at Branch Rebolusing 0443, Until Discontinu ed, Routine
Dosing based on aPTT testing parameters (refer to continuous heparin drip order).
ondansetron 2020-0 2020- No 4mg 4 mg, Slow Univers (ZOFRAN 08-12 IV Push, ity of (PF)) 08:30: 07:44 ONCE, 1 [place] injection 4 00 :00 dose, Tu Med ical mg 08/13/19 at Branch 0330, Routine dextrometho 2020-0 2020- No 5mL 5 mL, Univ ers rphan-guaif 08-12 Oral, ity of enesin 07:25: 21:03 Q6HPRN, [place] (ROBITUSSIN 59 :57 Starting Medi blanquita DM) 10-100 [facility] mg/5 mL 08/13/19 at solution 5 0225, mL Until 08/13/19 at 1603, Routine, Cough morpHINE 2020-0 2020- No 2mg 2 mg, Slow Un cali injection 2 08-12 IV Push, ity of mg 06:08: 13:24 Q6HPRN, 2 [place] 33 :00 doses, Medical Starting Branch [facility] 08/13/19 at 0108, Until 08/13/19 at 0824, Routine, Chest pain aspirin 2020-0 Yes 81mg Take 81 mg Univ ers (ASPIRIN 3-17 by mouth ity of LOW DOSE) 04:49: daily. [place] 81 mg EC 06 Medical tablet [place] aspirin 2020-0 Yes 81mg Take 81 mg Univ ers (ASPIRIN 3-17 by mouth ity of LOW DOSE) 04:49: daily. [place] 81 mg EC 06 Medical tablet [place] nitroglycer 2020-0 Yes .4mg 0.4 mg, Uni vers in 08-12 Sublingual ity of (NITROSTAT) 04:31: , Q5MIN [place] sublingual 28 PRN, Medical tablet 0.4 Starting Branc h mg 08/12/19 at 2331, Until Discontinu ed, Routine, Chest pain aspirin 2020-0 Yes 81mg Take 81 mg Univ ers (ASPIRIN 3-09 by mouth ity of LOW DOSE) 16:06: daily. [place] 81 mg EC 37 Medical tablet Branch aspirin 2020-0 Yes 81mg Take 81 mg Univ ers (ASPIRIN 3-09 by mouth ity of LOW DOSE) 16:06: daily. [place] 81 mg EC 37 Medical tablet Branch aspirin 2020-0 Yes 81mg Take 81 mg Univ ers (ASPIRIN 3-09 by mouth ity of LOW DOSE) 16:06: daily. [place] 81 mg EC 37 Medical tablet Branch aspirin 2020-0 Yes 81mg Take 81 mg Univ ers (ASPIRIN 3-09 by mouth ity of LOW DOSE) 16:06: daily. [place] 81 mg EC 37 Medical tablet Branch aspirin 2020-0 Yes 81mg Take 81 mg Univ ers (ASPIRIN 3-09 by mouth ity of LOW DOSE) 16:06: daily. [place] 81 mg EC 37 Medical tablet Branch isosorbide 2020-0 Yes [id number] 30mg Take 1 Univers mononitrate 3-09 tablet by ity of 30 mg 24 hr 00:00: mouth [place] tablet 00 daily. Medical Branch isosorbide 2020-0 Yes [id number] 30mg Take 1 Univers mononitrate 3-09 tablet by ity of 30 mg 24 hr 00:00: mouth [place] tablet 00 daily. Medical Branch isosorbide 2020-0 Yes [id number] 30mg Take 1 Univers mononitrate 3-09 tablet by ity of 30 mg 24 hr 00:00: mouth [place] tablet 00 daily. Medical Branch isosorbide 2020-0 Yes [id number] 30mg Take 1 Univers mononitrate 3-09 tablet by ity of 30 mg 24 hr 00:00: mouth [place] tablet 00 daily. Medical Branch isosorbide 2020-0 Yes [id number] 30mg Take 1 Univers mononitrate 3-09 tablet by ity of 30 mg 24 hr 00:00: mouth [place] tablet 00 daily. Medical Branch isosorbide 2020-0 Yes [id number] 30mg Take 1 Univers mononitrate 3-09 tablet by ity of 30 mg 24 hr 00:00: mouth [place] tablet 00 daily. Medical Branch isosorbide 2020-0 Yes [id number] 30mg Take 1 Univers mononitrate 3-09 tablet by ity of 30 mg 24 hr 00:00: mouth [place] tablet 00 daily. Medical Branch isosorbide 2020-0 Yes [id number] 30mg Take 1 Univers mononitrate 3-09 tablet by ity of 30 mg 24 hr 00:00: mouth [place] tablet 00 daily. Medical Branch isosorbide 2020-0 Yes [id number] 30mg Take 1 Univers mononitrate 3-09 tablet by ity of 30 mg 24 hr 00:00: mouth [place] tablet 00 daily. Medical Branch isosorbide 2020-0 Yes [id number] 30mg Take 1 Univers mononitrate 3-09 tablet by ity of 30 mg 24 hr 00:00: mouth [place] tablet 00 daily. Medical Branch isosorbide 2020-0 Yes [id number] 30mg Take 1 Univers mononitrate 3-09 tablet by ity of 30 mg 24 hr 00:00: mouth [place] tablet 00 daily. Medical Branch isosorbide 2020-0 Yes [id number] 30mg Take 1 Univers mononitrate 3-09 tablet by ity of 30 mg 24 hr 00:00: mouth [place] tablet 00 daily. Medical Branch isosorbide 2020-0 Yes [id number] 30mg Take 1 Univers mononitrate 3-09 tablet by ity of 30 mg 24 hr 00:00: mouth [place] tablet 00 daily. Medical Branch isosorbide 2020-0 Yes [id number] 30mg Take 1 Univers mononitrate 3-09 tablet by ity of 30 mg 24 hr 00:00: mouth [place] tablet 00 daily. Medical Branch isosorbide 2020-0 Yes [id number] 30mg Take 1 Univers mononitrate 3-09 tablet by ity of 30 mg 24 hr 00:00: mouth [place] tablet 00 daily. Medical Branch isosorbide 2020-0 Yes [id number] 30mg Take 1 Univers mononitrate 3-09 tablet by ity of 30 mg 24 hr 00:00: mouth [place] tablet 00 daily. Medical Branch isosorbide 2020-0 Yes [id number] 30mg Take 1 Univers mononitrate 3-09 tablet by ity of 30 mg 24 hr 00:00: mouth [place] tablet 00 daily. Medical Branch isosorbide 2020-0 Yes [id number] 30mg Take 1 Univers mononitrate 3-09 tablet by ity of 30 mg 24 hr 00:00: mouth [place] tablet 00 daily. Medical Branch isosorbide 2020-0 Yes [id number] 30mg Take 1 Univers mononitrate 3-09 tablet by ity of 30 mg 24 hr 00:00: mouth [place] tablet 00 daily. Medical Branch isosorbide 2020-0 Yes [id number] 30mg Take 1 Univers mononitrate 3-09 tablet by ity of 30 mg 24 hr 00:00: mouth [place] tablet 00 daily. Medical Branch isosorbide 2020-0 Yes [id number] 30mg Take 1 Univers mononitrate 3-09 tablet by ity of 30 mg 24 hr 00:00: mouth [place] tablet 00 daily. Medical Branch isosorbide 2020-0 Yes [id number] 30mg Take 1 Univers mononitrate 3-09 tablet by ity of 30 mg 24 hr 00:00: mouth [place] tablet 00 daily. Medical Branch isosorbide 2020-0 Yes [id number] 30mg Take 1 Univers mononitrate 3-09 tablet by ity of 30 mg 24 hr 00:00: mouth [place] tablet 00 daily. Medical Branch isosorbide 2020-0 Yes [id number] 30mg Take 1 Univers mononitrate 3-09 tablet by ity of 30 mg 24 hr 00:00: mouth [place] tablet 00 daily. Medical Branch isosorbide 2020-0 Yes [id number] 30mg Take 1 Univers mononitrate 3-09 tablet by ity of 30 mg 24 hr 00:00: mouth [place] tablet 00 daily. Medical Branch isosorbide 2020-0 Yes [id number] 30mg Take 1 Univers mononitrate 3-09 tablet by ity of 30 mg 24 hr 00:00: mouth [place] tablet 00 daily. Medical Branch isosorbide 2020-0 Yes [id number] 30mg Take 1 Univers mononitrate 3-09 tablet by ity of 30 mg 24 hr 00:00: mouth [place] tablet 00 daily. Medical Branch isosorbide 2020-0 Yes [id number] 30mg Take 1 Univers mononitrate 3-09 tablet by ity of 30 mg 24 hr 00:00: mouth [place] tablet 00 daily. Medical Branch isosorbide 2020-0 Yes [id number] 30mg Take 1 Univers mononitrate 3-09 tablet by ity of 30 mg 24 hr 00:00: mouth [place] tablet 00 daily. Medical Branch isosorbide 2020-0 Yes [id number] 30mg Take 1 Univers mononitrate 3-09 tablet by ity of 30 mg 24 hr 00:00: mouth [place] tablet 00 daily. Medical Branch isosorbide 2020-0 Yes [id number] 30mg Take 1 Univers mononitrate 3-09 tablet by ity of 30 mg 24 hr 00:00: mouth [place] tablet 00 daily. Medical Branch isosorbide 2020-0 Yes [id number] 30mg Take 1 Univers mononitrate 3-09 tablet by ity of 30 mg 24 hr 00:00: mouth [place] tablet 00 daily. Medical Branch isosorbide 2020-0 Yes [id number] 30mg Take 1 Univers mononitrate 3-09 tablet by ity of 30 mg 24 hr 00:00: mouth [place] tablet 00 daily. Medical Branch isosorbide 2020-0 Yes [id number] 30mg Take 1 Univers mononitrate 3-09 tablet by ity of 30 mg 24 hr 00:00: mouth [place] tablet 00 daily. Medical Branch isosorbide 2020-0 Yes [id number] 30mg Take 1 Univers mononitrate 3-09 tablet by ity of 30 mg 24 hr 00:00: mouth [place] tablet 00 daily. [facility] isosorbide 2020-0 Yes [id number] 30mg Take 1 [facility] mononitrate 3-09 tablet by ity of 30 mg 24 hr 00:00: mouth [place] tablet 00 daily. [facility] isosorbide 2020-0 Yes [id number] 30mg Take 1 [facility] mononitrate 3-09 tablet by ity of 30 mg 24 hr 00:00: mouth [place] tablet 00 daily. [facility] isosorbide 2020-0 Yes [id number] 30mg Take 1 [facility] mononitrate 3-09 tablet by ity of 30 mg 24 hr 00:00: mouth [place] tablet 00 daily. [facility] isosorbide 2020-0 Yes [id number] 30mg Take 1 [facility] mononitrate 3-09 tablet by ity of 30 mg 24 hr 00:00: mouth [place] tablet 00 daily. [facility] isosorbide 2020-0 Yes [id number] 30mg Take 1 [facility] mononitrate 3-09 tablet by ity of 30 mg 24 hr 00:00: mouth [place] tablet 00 daily. [facility] isosorbide 2020-0 Yes [id number] 30mg Take 1 [facility] mononitrate 3-09 tablet by ity of 30 mg 24 hr 00:00: mouth [place] tablet 00 daily. [facility] isosorbide 2020-0 Yes [id number] 30mg Take 1 [facility] mononitrate 3-09 tablet by ity of 30 mg 24 hr 00:00: mouth [place] tablet 00 daily. [facility] isosorbide 2020-0 Yes [id number] 30mg Take 1 [facility] mononitrate 3-09 tablet by ity of 30 mg 24 hr 00:00: mouth [place] tablet 00 daily. [facility] isosorbide 2020-0 Yes [id number] 30mg Take 1 [facility] mononitrate 3-09 tablet by ity of 30 mg 24 hr 00:00: mouth [place] tablet 00 daily. [facility] isosorbide 2020-0 Yes [id number] 30mg Take 1 [facility] mononitrate 3-09 tablet by ity of 30 mg 24 hr 00:00: mouth [place] tablet 00 daily. [facility] isosorbide 2020-0 Yes [id number] 30mg Take 1 [facility] mononitrate 3-09 tablet by ity of 30 mg 24 hr 00:00: mouth [place] tablet 00 daily. [facility] isosorbide 2020-0 Yes [id number] 30mg Take 1 [facility] mononitrate 3-09 tablet by ity of 30 mg 24 hr 00:00: mouth [place] tablet 00 daily. [facility] isosorbide 2020-0 Yes [id number] 30mg Take 1 [facility] mononitrate 3-09 tablet by ity of 30 mg 24 hr 00:00: mouth [place] tablet 00 daily. [facility] isosorbide 2020-0 Yes [id number] 30mg Take 1 [facility] mononitrate 3-09 tablet by ity of 30 mg 24 hr 00:00: mouth [place] tablet 00 daily. [facility] isosorbide 2020-0 Yes [id number] 30mg Take 1 [facility] mononitrate 3-09 tablet by ity of 30 mg 24 hr 00:00: mouth [place] tablet 00 daily. [facility] isosorbide 2020-0 2021- No [id number] 30mg Take 1 [facility] mononitrate 3-09 -08 tablet by it y of 30 mg 24 hr 00:00: 00:[place] tablet 00 :00 daily. [facility] insulin NPH 2018-05 Yes [id number] Inject 80 [facility] and regular 2-13 units AM, ity of human 70-30 00:00: 90 units [place] (NOVOLIN 00 PM Medical 70/30 U-100 Branch INSULIN) 100 unit/mL (70-30) injection insulin NPH 2018-05 Yes [id number] Inject 80 [facility] and regular 2-13 units AM, ity of human 70-30 00:00: 90 units [place] (NOVOLIN 00 PM Medical 70/30 U-100 Branch INSULIN) 100 unit/mL (70-30) injection insulin NPH 2018-05 Yes [id number] Inject 80 [facility] and regular 2-13 units AM, ity of human 7030 00:00: 90 units [place] (NOVOLIN 00 PM Medical 70/30 U-100 Branch INSULIN) 100 unit/mL (70-30) injection insulin NPH 2018-05 Yes [id number] Inject 80 [facility] and regular 2-13 units AM, ity of human 00:00: 90 units [place] (NOVOLIN 00 PM Medical 70/30 U-100 Branch INSULIN) 100 unit/mL (70-30) injection insulin NPH 2018-05 Yes [id number] Inject 80 [facility] and regular 2-13 units AM, ity of human 30 00:00: 90 units [place] (NOVOLIN 00 PM Medical 70/30 U-100 Branch INSULIN) 100 unit/mL (70-30) injection insulin NPH 2018-05 Yes [id number] Inject 80 [facility] and regular 2-13 units AM, ity of human 00:00: 90 units [place] (NOVOLIN 00 PM Medical 70/30 U-100 Branch INSULIN) 100 unit/mL (70-30) injection insulin NPH 2018-05 Yes [id number] Inject 80 [facility] and regular 2-13 units AM, ity of human 00:00: 90 units [place] (NOVOLIN 00 PM Medical 70/30 U-100 Branch INSULIN) 100 unit/mL (70-30) injection insulin NPH 2018-05 2020- No [id number] Inject 80 [facility] and regular 2-13 03-20 units AM, it y of human 00:00: 00:00 90 units [place] (NOVOLIN 00 :00 PM Medical 70/30 U-100 Branch INSULIN) 100 unit/mL (70-30) injection FUROSEMIDE 2018-05 Yes [id number] TAKE 1 U nivers 20 mg 2-11 TABLET BY ity of tablet 00:00: MOUTH ONCE DAILY Medical Branch FUROSEMIDE 2018-05 Yes [id number] TAKE 1 U nivers 20 mg 2-11 TABLET BY ity of tablet 00:00: MOUTH ONCE DAILY Medical Branch FUROSEMIDE 2018-05 Yes [id number] TAKE 1 U nivers 20 mg 2-11 TABLET BY ity of tablet 00:00: MOUTH ONCE [place] DAILY Medical Branch FUROSEMIDE 2019- Yes [id number] TAKE 1 U nivers 20 mg 2-11 TABLET BY ity of tablet 00:00: MOUTH ONCE DAILY Medical Branch FUROSEMIDE 2019- Yes [id number] TAKE 1 U nivers 20 mg 2-11 TABLET BY ity of tablet 00:00: MOUTH ONCE Medical Branch FUROSEMIDE 2019- Yes [id number] TAKE 1 U nivers 20 mg 2-11 TABLET BY ity of tablet 00:00: MOUTH ONCE DAILY Medical Branch FUROSEMIDE 2019- Yes [id number] TAKE 1 U nivers 20 mg 2-11 TABLET BY ity of tablet 00:00: MOUTH ONCE DAILY Medical Branch FUROSEMIDE 2019- Yes [id number] TAKE 1 U nivers 20 mg 2-11 TABLET BY ity of tablet 00:00: MOUTH ONCE DAILY Medical Branch FUROSEMIDE 2019- Yes [id number] TAKE 1 U nivers 20 mg 2-11 TABLET BY ity of tablet 00:00: MOUTH ONCE DAILY Medical Branch FUROSEMIDE 2019- Yes [id number] TAKE 1 U nivers 20 mg 2-11 TABLET BY ity of tablet 00:00: MOUTH ONCE DAILY Medical Branch FUROSEMIDE 2019- Yes [id number] TAKE 1 U nivers 20 mg 2-11 TABLET BY ity of tablet 00:00: MOUTH ONCE [place] DAILY Medical Branch FUROSEMIDE 2019- Yes [id number] TAKE 1 U nivers 20 mg 2-11 TABLET BY ity of tablet 00:00: MOUTH ONCE [place] DAILY Medical Branch FUROSEMIDE 2019- Yes [id number] TAKE 1 U nivers 20 mg 2-11 TABLET BY ity of tablet 00:00: MOUTH ONCE [place] DAILY Medical Branch FUROSEMIDE 2019- Yes [id number] TAKE 1 U nivers 20 mg 2-11 TABLET BY ity of tablet 00:00: MOUTH ONCE [place] DAILY Medical Branch FUROSEMIDE 2019- Yes [id number] TAKE 1 U nivers 20 mg 2-11 TABLET BY ity of tablet 00:00: MOUTH ONCE DAILY Medical Branch FUROSEMIDE 2019- Yes [id number] TAKE 1 U nivers 20 mg 2-11 TABLET BY ity of tablet 00:00: MOUTH ONCE [place] DAILY Medical Branch FUROSEMIDE 2019- Yes [id number] TAKE 1 U nivers 20 mg 2-11 TABLET BY ity of tablet 00:00: MOUTH ONCE [place] DAILY Medical Branch FUROSEMIDE 2019- Yes [id number] TAKE 1 U nivers 20 mg 2-11 TABLET BY ity of tablet 00:00: MOUTH ONCE [place] DAILY Medical Branch FUROSEMIDE 2019- Yes [id number] TAKE 1 U nivers 20 mg 2-11 TABLET BY ity of tablet 00:00: MOUTH ONCE [place] [address] DAILY Medical Branch FUROSEMIDE 2019- Yes [id number] TAKE 1 U nivers 20 mg 2-11 TABLET BY ity of tablet 00:00: MOUTH ONCE [place] DAILY Medical Branch FUROSEMIDE 2019- Yes [id number] TAKE 1 U nivers 20 mg 2-11 TABLET BY ity of tablet 00:00: MOUTH ONCE [place] DAILY Medical Branch FUROSEMIDE 2018- Yes [id number] TAKE 1 U nivers 20 mg 2-11 TABLET BY ity of tablet 00:00: MOUTH ONCE [place] DAILY Medical Branch FUROSEMIDE 2019- Yes [id number] TAKE 1 U nivers 20 mg 2-11 TABLET BY ity of tablet 00:00: MOUTH ONCE [place] [address] DAILY Medical Branch FUROSEMIDE 2019- Yes [id number] TAKE 1 U nivers 20 mg 2-11 TABLET BY ity of tablet 00:00: MOUTH ONCE [place] DAILY Medical Branch FUROSEMIDE 2019- Yes [id number] TAKE 1 U nivers 20 mg 2-11 TABLET BY ity of tablet 00:00: MOUTH ONCE [place] DAILY Medical Branch FUROSEMIDE 2019- Yes [id number] TAKE 1 U nivers 20 mg 2-11 TABLET BY ity of tablet 00:00: MOUTH ONCE [place] [address] DAILY Medical Branch FUROSEMIDE 2019- Yes [id number] TAKE 1 U nivers 20 mg 2-11 TABLET BY ity of tablet 00:00: MOUTH ONCE [place] [address] DAILY Medical Branch FUROSEMIDE 2019- 2020- No [id number] TAKE 1 [facility] 20 mg 2-11 08-18 TABLET BY ity of tablet 00:00: 00:00 M[place]TH ONCE [place] 00 :00 DAILY [facility] FUROSEMIDE 2019- 2020- No [id number] TAKE 1 [facility] 20 mg 2-11 08-18 TABLET BY ity of tablet 00:00: 00:00 MOUTH ONCE [place] 00 :00 DAILY [facility] FUROSEMIDE 2019- 2020- No [id number] TAKE 1 [facility] 20 mg 2-11 08-18 TABLET BY ity of tablet 00:00: 00:00 MOUTH ONCE [place] 00 :00 DAILY [facility] pantoprazol 2019- Yes [id number] 40mg Take 1 [facility] e 40 mg EC 0-29 tablet by ity of tablet 00:00: mouth [place] 00 daily. Medical Branch potassium 2018-05 Yes [id number] 10meq Take 1 U nivers chloride 10 0-29 tablet by ity of mEq CR 00:00: mouth [place] tablet 00 daily. Medical Branch albuterol 2018-05 Yes [id number] 2{puff} Inhale 2 [facility] 90 0-29 Puffs ity of mcg/actuati 00:00: every 6 [place] inhaler 00 (six) Medical hours as Branch needed for Wheezing or Shortness of Breath. nitroglycer 2018-05 Yes [id number] 1 tab SL [facility] in 0.4 mg 0-29 q5min up ity of sublingual 00:00: to 3 doses [place] tablet 00 PRN chest Medical pain, then Branch activate 911. DULoxetine 2018-05 Yes [id number] 30mg Take 1 [facility] 30 mg 0-29 capsule by ity of capsule 00:00: mouth [place] 00 daily. Medical Branch pantoprazol 2018-05 Yes [id number] 40mg Take 1 [facility] e 40 mg EC 0-29 tablet by ity of tablet 00:00: mouth [place] 00 daily. Medical Branch potassium 2018-05 Yes [id number] 10meq Take 1 U nivers chloride 10 0-29 tablet by ity of mEq CR 00:00: mouth [place] tablet 00 daily. Medical Branch albuterol 2018-05 Yes [id number] 2{puff} Inhale 2 [facility] 90 0-29 Puffs ity of mcg/actuati 00:00: every 6 [place] inhaler 00 (six) Medical hours as Branch needed for Wheezing or Shortness of Breath. nitroglycer 2018-05 Yes [id number] 1 tab SL [facility] in 0.4 mg 0-29 q5min up ity of sublingual 00:00: to 3 doses [place] tablet 00 PRN chest Medical pain, then Branch activate 911. DULoxetine 2018-05 Yes [id number] 30mg Take 1 [facility] 30 mg 0-29 capsule by ity of capsule 00:00: mouth [place] 00 daily. Medical Branch pantoprazol 2018-05 Yes [id number] 40mg Take 1 [facility] e 40 mg EC 0-29 tablet by ity of tablet 00:00: mouth [place] 00 daily. Medical Branch potassium 2018-05 Yes [id number] 10meq Take 1 U nivers chloride 10 0-29 tablet by ity of mEq CR 00:00: mouth [place] tablet 00 daily. Medical Branch albuterol 2018-05 Yes [id number] 2{puff} Inhale 2 [facility] 90 0-29 Puffs ity of mcg/actuati 00:00: every 6 [place] inhaler 00 (six) Medical hours as Branch needed for Wheezing or Shortness of Breath. nitroglycer 2018-05 Yes [id number] 1 tab SL [facility] in 0.4 mg 0-29 q5min up ity of sublingual 00:00: to 3 doses [place] tablet 00 PRN chest Medical pain, then Branch activate 911. DULoxetine 2018-05 Yes [id number] 30mg Take 1 [facility] 30 mg 0-29 capsule by ity of capsule 00:00: mouth [place] 00 daily. Medical Branch pantoprazol 2018-05 Yes [id number] 40mg Take 1 [facility] e 40 mg EC 0-29 tablet by ity of tablet 00:00: mouth [place] 00 daily. Medical Branch potassium 2018-05 Yes [id number] 10meq Take 1 U nivers chloride 10 0-29 tablet by ity of mEq CR 00:00: mouth [place] tablet 00 daily. [facility] Branch albuterol 2018-05 Yes [id number] 2{puff} Inhale 2 [facility] 90 0-29 Puffs ity of mcg/actuati 00:00: every 6 [place] inhaler 00 (six) Medical hours as Branch needed for Wheezing or Shortness of Breath. nitroglycer 2018-05 Yes [id number] 1 tab SL [facility] in 0.4 mg 0-29 q5min up ity of sublingual 00:00: to 3 doses [place] tablet 00 PRN chest Medical pain, then Branch activate 911. DULoxetine 2018-05 Yes [id number] 30mg Take 1 [facility] 30 mg 0-29 capsule by ity of capsule 00:00: mouth [place] 00 daily. [facility] Branch pantoprazol 2018-05 Yes [id number] 40mg Take 1 [facility] e 40 mg EC 0-29 tablet by ity of tablet 00:00: mouth [place] 00 daily. Medical Branch potassium 2018-05 Yes [id number] 10meq Take 1 U nivers chloride 10 0-29 tablet by ity of mEq CR 00:00: mouth [place] tablet 00 daily. [facility] Branch albuterol 2018-05 Yes [id number] 2{puff} Inhale 2 [facility] 90 0-29 Puffs ity of mcg/actuati 00:00: every 6 [place] inhaler 00 (six) Medical hours as Branch needed for Wheezing or Shortness of Breath. nitroglycer 2018-05 Yes [id number] 1 tab SL [facility] in 0.4 mg 0-29 q5min up ity of sublingual 00:00: to 3 doses [place] tablet 00 PRN chest Medical pain, then Branch activate 911. DULoxetine 2018-05 Yes [id number] 30mg Take 1 [facility] 30 mg 0-29 capsule by ity of capsule 00:00: mouth [place] 00 daily. [facility] Branch pantoprazol 2018-05 Yes [id number] 40mg Take 1 [facility] e 40 mg EC 0-29 tablet by ity of tablet 00:00: mouth [place] 00 daily. Medical Branch potassium 2018-05 Yes [id number] 10meq Take 1 U nivers chloride 10 0-29 tablet by ity of mEq CR 00:00: mouth [place] tablet 00 daily. [facility] Branch albuterol 2018-05 Yes [id number] 2{puff} Inhale 2 [facility] 90 0-29 Puffs ity of mcg/actuati 00:00: every 6 [place] inhaler 00 (six) Medical hours as Branch needed for Wheezing or Shortness of Breath. nitroglycer 2018-05 Yes [id number] 1 tab SL [facility] in 0.4 mg 0-29 q5min up ity of sublingual 00:00: to 3 doses [place] tablet 00 PRN chest Medical pain, then Branch activate 911. DULoxetine 2018-05 Yes [id number] 30mg Take 1 [facility] 30 mg 0-29 capsule by ity of capsule 00:00: mouth [place] 00 daily. [facility] pantoprazol 2018-05 Yes [id number] 40mg Take 1 [facility] e 40 mg EC 0-29 tablet by ity of tablet 00:00: mouth [place] 00 daily. [facility] Branch potassium 2018-05 Yes [id number] 10meq Take 1 U nivers chloride 10 0-29 tablet by ity of mEq CR 00:00: mouth [place] tablet 00 daily. [facility] Branch albuterol 2018-05 Yes [id number] 2{puff} Inhale 2 [facility] 90 0-29 Puffs ity of mcg/actuati 00:00: every 6 [place] inhaler 00 (six) Medical hours as Branch needed for Wheezing or Shortness of Breath. nitroglycer 2018-05 Yes [id number] 1 tab SL [facility] in 0.4 mg 0-29 q5min up ity of sublingual 00:00: to 3 doses [place] tablet 00 PRN chest Medical pain, then Branch activate 911. DULoxetine 2018-05 Yes [id number] 30mg Take 1 [facility] 30 mg 0-29 capsule by ity of capsule 00:00: mouth [place] 00 daily. [facility] Branch pantoprazol 2018-05 Yes [id number] 40mg Take 1 [facility] e 40 mg EC 0-29 tablet by ity of tablet 00:00: mouth [place] 00 daily. [facility] Branch potassium 2018-05 Yes [id number] 10meq Take 1 U nivers chloride 10 0-29 tablet by ity of mEq CR 00:00: mouth [place] tablet 00 daily. [facility] Branch albuterol 2018-05 Yes [id number] 2{puff} Inhale 2 [facility] 90 0-29 Puffs ity of mcg/actuati 00:00: every 6 [place] inhaler 00 (six) Medical hours as Branch needed for Wheezing or Shortness of Breath. nitroglycer 2018-05 Yes [id number] 1 tab SL [facility] in 0.4 mg 0-29 q5min up ity of sublingual 00:00: to 3 doses [place] tablet 00 PRN chest Medical pain, then Branch activate 911. DULoxetine 2018-05 Yes [id number] 30mg Take 1 [facility] 30 mg 0-29 capsule by ity of capsule 00:00: mouth [place] 00 daily. [facility] Branch pantoprazol 2018-05 Yes [id number] 40mg Take 1 [facility] e 40 mg EC 0-29 tablet by ity of tablet 00:00: mouth [place] 00 daily. [facility] Branch potassium 2018-05 Yes [id number] 10meq Take 1 U nivers chloride 10 0-29 tablet by ity of mEq CR 00:00: mouth [place] tablet 00 daily. [facility] Branch albuterol 2018-05 Yes [id number] 2{puff} Inhale 2 [facility] 90 0-29 Puffs ity of mcg/actuati 00:00: every 6 [place] inhaler 00 (six) Medical hours as Branch needed for Wheezing or Shortness of Breath. nitroglycer 2018-05 Yes [id number] 1 tab SL [facility] in 0.4 mg 0-29 q5min up ity of sublingual 00:00: to 3 doses [place] tablet 00 PRN chest Medical pain, then Branch activate 911. DULoxetine 2018-05 Yes [id number] 30mg Take 1 [facility] 30 mg 0-29 capsule by ity of capsule 00:00: mouth [place] 00 daily. [facility] Branch pantoprazol 2018-05 Yes [id number] 40mg Take 1 [facility] e 40 mg EC 0-29 tablet by ity of tablet 00:00: mouth [place] 00 daily. [facility] Branch potassium 2018-05 Yes [id number] 10meq Take 1 U nivers chloride 10 0-29 tablet by ity of mEq CR 00:00: mouth [place] tablet 00 daily. [facility] Branch albuterol 2018-05 Yes [id number] 2{puff} Inhale 2 [facility] 90 0-29 Puffs ity of mcg/actuati 00:00: every 6 [place] inhaler 00 (six) Medical hours as Branch needed for Wheezing or Shortness of Breath. nitroglycer 2018-05 Yes [id number] 1 tab SL [facility] in 0.4 mg 0-29 q5min up ity of sublingual 00:00: to 3 doses [place] tablet 00 PRN chest Medical pain, then Branch activate 911. DULoxetine 2018-05 Yes [id number] 30mg Take 1 [facility] 30 mg 0-29 capsule by ity of capsule 00:00: mouth [place] 00 daily. [facility] Branch pantoprazol 2018-05 Yes [id number] 40mg Take 1 [facility] e 40 mg EC 0-29 tablet by ity of tablet 00:00: mouth [place] 00 daily. [facility] Branch potassium 2018-05 Yes [id number] 10meq Take 1 U nivers chloride 10 0-29 tablet by ity of mEq CR 00:00: mouth [place] tablet 00 daily. [facility] albuterol 2018-05 Yes [id number] 2{puff} Inhale 2 [facility] 90 0-29 Puffs ity of mcg/actuati 00:00: every 6 [place] inhaler 00 (six) Medical hours as Branch needed for Wheezing or Shortness of Breath. nitroglycer 2018-05 Yes [id number] 1 tab SL [facility] in 0.4 mg 0-29 q5min up ity of sublingual 00:00: to 3 doses [place] tablet 00 PRN chest Medical pain, then Branch activate 911. DULoxetine 2018-05 Yes [id number] 30mg Take 1 [facility] 30 mg 0-29 capsule by ity of capsule 00:00: mouth [place] 00 daily. [facility] Branch pantoprazol 2018-05 Yes [id number] 40mg Take 1 [facility] e 40 mg EC 0-29 tablet by ity of tablet 00:00: mouth [place] 00 daily. [facility] Branch potassium 2018-05 Yes [id number] 10meq Take 1 U nivers chloride 10 0-29 tablet by ity of mEq CR 00:00: mouth [place] tablet 00 daily. [facility] Branch albuterol 2018-05 Yes [id number] 2{puff} Inhale 2 [facility] 90 0-29 Puffs ity of mcg/actuati 00:00: every 6 [place] inhaler 00 (six) Medical hours as Branch needed for Wheezing or Shortness of Breath. nitroglycer 2018-05 Yes [id number] 1 tab SL [facility] in 0.4 mg 0-29 q5min up ity of sublingual 00:00: to 3 doses [place] tablet 00 PRN chest Medical pain, then Branch activate 911. DULoxetine 2018-05 Yes [id number] 30mg Take 1 [facility] 30 mg 0-29 capsule by ity of capsule 00:00: mouth [place] 00 daily. [facility] Branch pantoprazol 2018-05 Yes [id number] 40mg Take 1 [facility] e 40 mg EC 0-29 tablet by ity of tablet 00:00: mouth [place] 00 daily. [facility] Branch potassium 2018-05 Yes [id number] 10meq Take 1 U nivers chloride 10 0-29 tablet by ity of mEq CR 00:00: mouth [place] tablet 00 daily. [facility] Branch albuterol 2018-05 Yes [id number] 2{puff} Inhale 2 [facility] 90 0-29 Puffs ity of mcg/actuati 00:00: every 6 [place] inhaler 00 (six) Medical hours as Branch needed for Wheezing or Shortness of Breath. nitroglycer 2018-05 Yes [id number] 1 tab SL [facility] in 0.4 mg 0-29 q5min up ity of sublingual 00:00: to 3 doses [place] tablet 00 PRN chest Medical pain, then Branch activate 911. DULoxetine 2018-05 Yes [id number] 30mg Take 1 [facility] 30 mg 0-29 capsule by ity of capsule 00:00: mouth [place] 00 daily. [facility] Branch albuterol 2018-05 Yes [id number] 2{puff} Inhale 2 [facility] 90 0-29 Puffs ity of mcg/actuati 00:00: every 6 [place] inhaler 00 (six) Medical hours as Branch needed for Wheezing or Shortness of Breath. nitroglycer 2018-05 Yes [id number] 1 tab SL [facility] in 0.4 mg 0-29 q5min up ity of sublingual 00:00: to 3 doses [place] tablet 00 PRN chest Medical pain, then Branch activate 911. DULoxetine 2018-05 Yes [id number] 30mg Take 1 [facility] 30 mg 0-29 capsule by ity of capsule 00:00: mouth [place] 00 daily. [facility] Branch albuterol 2018-05 Yes [id number] 2{puff} Inhale 2 [facility] 90 0-29 Puffs ity of mcg/actuati 00:00: every 6 [place] inhaler 00 (six) Medical hours as Branch needed for Wheezing or Shortness of Breath. nitroglycer 2018-05 Yes [id number] 1 tab SL [facility] in 0.4 mg 0-29 q5min up ity of sublingual 00:00: to 3 doses [place] tablet 00 PRN chest Medical pain, then Branch activate 911. albuterol 2018-05 Yes [id number] 2{puff} Inhale 2 [facility] 90 0-29 Puffs ity of mcg/actuati 00:00: every 6 [place] inhaler 00 (six) Medical hours as Branch needed for Wheezing or Shortness of Breath. nitroglycer 2018-05 Yes [id number] 1 tab SL [facility] in 0.4 mg 0-29 q5min up ity of sublingual 00:00: to 3 doses [place] tablet 00 PRN chest Medical pain, then Branch activate 911. albuterol 2018-05 Yes [id number] 2{puff} Inhale 2 [facility] 90 0-29 Puffs ity of mcg/actuati 00:00: every 6 [place] inhaler 00 (six) Medical hours as Branch needed for Wheezing or Shortness of Breath. nitroglycer 2018-05 Yes [id number] 1 tab SL [facility] in 0.4 mg 0-29 q5min up ity of sublingual 00:00: to 3 doses [place] tablet 00 PRN chest Medical pain, then Branch activate 911. albuterol 2018-05 Yes [id number] 2{puff} Inhale 2 [facility] 90 0-29 Puffs ity of mcg/actuati 00:00: every 6 [place] inhaler 00 (six) Medical hours as Branch needed for Wheezing or Shortness of Breath. nitroglycer 2018-05 Yes [id number] 1 tab SL [facility] in 0.4 mg 0-29 q5min up ity of sublingual 00:00: to 3 doses [place] tablet 00 PRN chest Medical pain, then Branch activate 911. albuterol 2018-05 Yes [id number] 2{puff} Inhale 2 [facility] 90 0-29 Puffs ity of mcg/actuati 00:00: every 6 [place] inhaler 00 (six) Medical hours as Branch needed for Wheezing or Shortness of Breath. nitroglycer 2018-05 Yes [id number] 1 tab SL [facility] in 0.4 mg 0-29 q5min up ity of sublingual 00:00: to 3 doses [place] tablet 00 PRN chest Medical pain, then Branch activate 911. albuterol 2018-05 Yes [id number] 2{puff} Inhale 2 [facility] 90 0-29 Puffs ity of mcg/actuati 00:00: every 6 [place] inhaler 00 (six) Medical hours as Branch needed for Wheezing or Shortness of Breath. nitroglycer 2018-05 Yes [id number] 1 tab SL [facility] in 0.4 mg 0-29 q5min up ity of sublingual 00:00: to 3 doses [place] tablet 00 PRN chest Medical pain, then Branch activate 911. albuterol 2018-05 Yes [id number] 2{puff} Inhale 2 [facility] 90 0-29 Puffs ity of mcg/actuati 00:00: every 6 [place] inhaler 00 (six) Medical hours as Branch needed for Wheezing or Shortness of Breath. nitroglycer 2018-05 Yes [id number] 1 tab SL [facility] in 0.4 mg 0-29 q5min up ity of sublingual 00:00: to 3 doses [place] tablet 00 PRN chest Medical pain, then Branch activate 911. albuterol 2018-05 Yes [id number] 2{puff} Inhale 2 [facility] 90 0-29 Puffs ity of mcg/actuati 00:00: every 6 [place] inhaler 00 (six) Medical hours as Branch needed for Wheezing or Shortness of Breath. nitroglycer 2018-05 Yes [id number] 1 tab SL [facility] in 0.4 mg 0-29 q5min up ity of sublingual 00:00: to 3 doses [place] tablet 00 PRN chest Medical pain, then Branch activate 911. albuterol 2018-05 Yes [id number] 2{puff} Inhale 2 [facility] 90 0-29 Puffs ity of mcg/actuati 00:00: every 6 [place] inhaler 00 (six) Medical hours as Branch needed for Wheezing or Shortness of Breath. nitroglycer 2018-05 Yes [id number] 1 tab SL [facility] in 0.4 mg 0-29 q5min up ity of sublingual 00:00: to 3 doses [place] tablet 00 PRN chest Medical pain, then Branch activate 911. albuterol 2018-05 Yes [id number] 2{puff} Inhale 2 [facility] 90 0-29 Puffs ity of mcg/actuati 00:00: every 6 [place] inhaler 00 (six) Medical hours as Branch needed for Wheezing or Shortness of Breath. nitroglycer 2018-05 Yes [id number] 1 tab SL [facility] in 0.4 mg 0-29 q5min up ity of sublingual 00:00: to 3 doses [place] tablet 00 PRN chest Medical pain, then Branch activate 911. albuterol 2018-05 Yes [id number] 2{puff} Inhale 2 [facility] 90 0-29 Puffs ity of mcg/actuati 00:00: every 6 [place] inhaler 00 (six) Medical hours as Branch needed for Wheezing or Shortness of Breath. nitroglycer 2018-05 Yes [id number] 1 tab SL [facility] in 0.4 mg 0-29 q5min up ity of sublingual 00:00: to 3 doses [place] tablet 00 PRN chest Medical pain, then Branch activate 911. albuterol 2018-05 Yes [id number] 2{puff} Inhale 2 [facility] 90 0-29 Puffs ity of mcg/actuati 00:00: every 6 [place] inhaler 00 (six) Medical hours as Branch needed for Wheezing or Shortness of Breath. nitroglycer 2018-05 Yes [id number] 1 tab SL [facility] in 0.4 mg 0-29 q5min up ity of sublingual 00:00: to 3 doses [place] tablet 00 PRN chest Medical pain, then Branch activate 911. albuterol 2018-05 Yes [id number] 2{puff} Inhale 2 [facility] 90 0-29 Puffs ity of mcg/actuati 00:00: every 6 [place] inhaler 00 (six) Medical hours as Branch needed for Wheezing or Shortness of Breath. nitroglycer 2018-05 Yes [id number] 1 tab SL [facility] in 0.4 mg 0-29 q5min up ity of sublingual 00:00: to 3 doses [place] tablet 00 PRN chest Medical pain, then Branch activate 911. albuterol 2018-05 Yes [id number] 2{puff} Inhale 2 [facility] 90 0-29 Puffs ity of mcg/actuati 00:00: every 6 [place] on inhaler 00 (six) Medical hours as Branch needed for Wheezing or Shortness of Breath. nitroglycer 2018-05 Yes [id number] 1 tab SL [facility] in 0.4 mg 0-29 q5min up ity of sublingual 00:00: to 3 doses [place] tablet 00 PRN chest Medical pain, then Branch activate 911. albuterol 2018-05 Yes [id number] 2{puff} Inhale 2 [facility] 90 0-29 Puffs ity of mcg/actuati 00:00: every 6 [place] inhaler 00 (six) Medical hours as Branch needed for Wheezing or Shortness of Breath. nitroglycer 2018-05 Yes [id number] 1 tab SL [facility] in 0.4 mg 0-29 q5min up ity of sublingual 00:00: to 3 doses [place] tablet 00 PRN chest Medical pain, then Branch activate 911. albuterol 2018-05 Yes [id number] 2{puff} Inhale 2 [facility] 90 0-29 Puffs ity of mcg/actuati 00:00: every 6 [place] inhaler 00 (six) Medical hours as Branch needed for Wheezing or Shortness of Breath. nitroglycer 2018-05 Yes [id number] 1 tab SL [facility] in 0.4 mg 0-29 q5min up ity of sublingual 00:00: to 3 doses [place] tablet 00 PRN chest Medical pain, then Branch activate 911. albuterol 2018-05 Yes [id number] 2{puff} Inhale 2 [facility] 90 0-29 Puffs ity of mcg/actuati 00:00: every 6 [place] inhaler 00 (six) Medical hours as Branch needed for Wheezing or Shortness of Breath. nitroglycer 2018-05 Yes [id number] 1 tab SL [facility] in 0.4 mg 0-29 q5min up ity of sublingual 00:00: to 3 doses [place] tablet 00 PRN chest Medical pain, then Branch activate 911. albuterol 2018-05 Yes [id number] 2{puff} Inhale 2 [facility] 90 0-29 Puffs ity of mcg/actuati 00:00: every 6 [place] inhaler 00 (six) Medical hours as Branch needed for Wheezing or Shortness of Breath. nitroglycer 2018-05 Yes [id number] 1 tab SL [facility] in 0.4 mg 0-29 q5min up ity of sublingual 00:00: to 3 doses [place] tablet 00 PRN chest Medical pain, then Branch activate 911. albuterol 2018-05 Yes [id number] 2{puff} Inhale 2 [facility] 90 0-29 Puffs ity of mcg/actuati 00:00: every 6 [place] inhaler 00 (six) Medical hours as Branch needed for Wheezing or Shortness of Breath. nitroglycer 2018-05 Yes [id number] 1 tab SL [facility] in 0.4 mg 0-29 q5min up ity of sublingual 00:00: to 3 doses [place] tablet 00 PRN chest Medical pain, then Branch activate 911. albuterol 2018-05 Yes [id number] 2{puff} Inhale 2 [facility] 90 0-29 Puffs ity of mcg/actuati 00:00: every 6 [place] inhaler 00 (six) Medical hours as Branch needed for Wheezing or Shortness of Breath. nitroglycer 2018-05 Yes [id number] 1 tab SL [facility] in 0.4 mg 0-29 q5min up ity of sublingual 00:00: to 3 doses [place] tablet 00 PRN chest Medical pain, then Branch activate 911. albuterol 2018-05 Yes [id number] 2{puff} Inhale 2 [facility] 90 0-29 Puffs ity of mcg/actuati 00:00: every 6 [place] inhaler 00 (six) Medical hours as Branch needed for Wheezing or Shortness of Breath. nitroglycer 2018-05 Yes [id number] 1 tab SL [facility] in 0.4 mg 0-29 q5min up ity of sublingual 00:00: to 3 doses [place] tablet 00 PRN chest Medical pain, then Branch activate 911. albuterol 2018-05 Yes [id number] 2{puff} Inhale 2 [facility] 90 0-29 Puffs ity of mcg/actuati 00:00: every 6 [place] inhaler 00 (six) Medical hours as Branch needed for Wheezing or Shortness of Breath. nitroglycer 2018-05 Yes [id number] 1 tab SL [facility] in 0.4 mg 0-29 q5min up ity of sublingual 00:00: to 3 doses [place] tablet 00 PRN chest Medical pain, then Branch activate 911. albuterol 2018-05 Yes [id number] 2{puff} Inhale 2 [facility] 90 0-29 Puffs ity of mcg/actuati 00:00: every 6 [place] inhaler 00 (six) Medical hours as Branch needed for Wheezing or Shortness of Breath. nitroglycer 2018-05 Yes [id number] 1 tab SL [facility] in 0.4 mg 0-29 q5min up ity of sublingual 00:00: to 3 doses [place] tablet 00 PRN chest Medical pain, then Branch activate 911. albuterol 2018-05 Yes [id number] 2{puff} Inhale 2 [facility] 90 0-29 Puffs ity of mcg/actuati 00:00: every 6 [place] inhaler 00 (six) Medical hours as Branch needed for Wheezing or Shortness of Breath. nitroglycer 2018-05 Yes [id number] 1 tab SL [facility] in 0.4 mg 0-29 q5min up ity of sublingual 00:00: to 3 doses [place] tablet 00 PRN chest Medical pain, then Branch activate 911. nitroglycer 2018-05 Yes [id number] 1 tab SL [facility] in 0.4 mg 0-29 q5min up ity of sublingual 00:00: to 3 doses [place] tablet 00 PRN chest Medical pain, then Branch activate 911. nitroglycer 2018-05 Yes [id number] 1 tab SL [facility] in 0.4 mg 0-29 q5min up ity of sublingual 00:00: to 3 doses [place] tablet 00 PRN chest Medical pain, then Branch activate 911. nitroglycer 2018-05 Yes [id number] 1 tab SL [facility] in 0.4 mg 0-29 q5min up ity of sublingual 00:00: to 3 doses [place] tablet 00 PRN chest Medical pain, then Branch activate 911. nitroglycer 2018-05 Yes [id number] 1 tab SL [facility] in 0.4 mg 0-29 q5min up ity of sublingual 00:00: to 3 doses [place] tablet 00 PRN chest Medical pain, then Branch activate 911. nitroglycer 2018-05 Yes [id number] 1 tab SL [facility] in 0.4 mg 0-29 q5min up ity of sublingual 00:00: to 3 doses [place] tablet 00 PRN chest Medical pain, then Branch activate 911. nitroglycer 2018-05 Yes [id number] 1 tab SL [facility] in 0.4 mg 0-29 q5min up ity of sublingual 00:00: to 3 doses [place] tablet 00 PRN chest Medical pain, then Branch activate 911. nitroglycer 2018-05 Yes [id number] 1 tab SL [facility] in 0.4 mg 0-29 q5min up ity of sublingual 00:00: to 3 doses [place] tablet 00 PRN chest Medical pain, then Branch activate 911. nitroglycer 2018-05 Yes [id number] 1 tab SL [facility] in 0.4 mg 0-29 q5min up ity of sublingual 00:00: to 3 doses [place] tablet 00 PRN chest Medical pain, then Branch activate 911. nitroglycer 2018-05 Yes [id number] 1 tab SL [facility] in 0.4 mg 0-29 q5min up ity of sublingual 00:00: to 3 doses [place] tablet 00 PRN chest Medical pain, then Branch activate 911. nitroglycer 2018-05 Yes [id number] 1 tab SL [facility] in 0.4 mg 0-29 q5min up ity of sublingual 00:00: to 3 doses [place] tablet 00 PRN chest Medical pain, then Branch activate 911. nitroglycer 2018-05 Yes [id number] 1 tab SL [facility] in 0.4 mg 0-29 q5min up ity of sublingual 00:00: to 3 doses [place] tablet 00 PRN chest Medical pain, then Branch activate 911. nitroglycer 2018-05 Yes [id number] 1 tab SL [facility] in 0.4 mg 0-29 q5min up ity of sublingual 00:00: to 3 doses [place] tablet 00 PRN chest Medical pain, then Branch activate 911. nitroglycer 2018-05 Yes [id number] 1 tab SL [facility] in 0.4 mg 0-29 q5min up ity of sublingual 00:00: to 3 doses [place] tablet 00 PRN chest Medical pain, then Branch activate 911. nitroglycer 2018-05 Yes [id number] 1 tab SL [facility] in 0.4 mg 0-29 q5min up ity of sublingual 00:00: to 3 doses [place] tablet 00 PRN chest Medical pain, then Branch activate 911. nitroglycer 2018-05 Yes [id number] 1 tab SL [facility] in 0.4 mg 0-29 q5min up ity of sublingual 00:00: to 3 doses [place] tablet 00 PRN chest Medical pain, then Branch activate 911. nitroglycer 2018-05 Yes [id number] 1 tab SL [facility] in 0.4 mg 0-29 q5min up ity of sublingual 00:00: to 3 doses [place] tablet 00 PRN chest Medical pain, then Branch activate 911. nitroglycer 2018-05 Yes [id number] 1 tab SL [facility] in 0.4 mg 0-29 q5min up ity of sublingual 00:00: to 3 doses [place] tablet 00 PRN chest Medical pain, then Branch activate 911. nitroglycer 2018-05 Yes [id number] 1 tab SL [facility] in 0.4 mg 0-29 q5min up ity of sublingual 00:00: to 3 doses [place] tablet 00 PRN chest Medical pain, then Branch activate 911. nitroglycer 2018-05 Yes [id number] 1 tab SL [facility] in 0.4 mg 0-29 q5min up ity of sublingual 00:00: to 3 doses [place] tablet 00 PRN chest Medical pain, then Branch activate 911. nitroglycer 2018-05 Yes [id number] 1 tab SL [facility] in 0.4 mg 0-29 q5min up ity of sublingual 00:00: to 3 doses [place] tablet 00 PRN chest Medical pain, then Branch activate 911. nitroglycer 2018-05 Yes [id number] 1 tab SL [facility] in 0.4 mg 0-29 q5min up ity of sublingual 00:00: to 3 doses [place] tablet 00 PRN chest Medical pain, then Branch activate 911. nitroglycer 2018-05 Yes [id number] 1 tab SL [facility] in 0.4 mg 0-29 q5min up ity of sublingual 00:00: to 3 doses [place] tablet 00 PRN chest Medical pain, then Branch activate 911. nitroglycer 2018-05 Yes [id number] 1 tab SL [facility] in 0.4 mg 0-29 q5min up ity of sublingual 00:00: to 3 doses [place] tablet 00 PRN chest Medical pain, then Branch activate 911. nitroglycer 2018-05 Yes [id number] 1 tab SL [facility] in 0.4 mg 0-29 q5min up ity of sublingual 00:00: to 3 doses [place] tablet 00 PRN chest Medical pain, then Branch activate 911. nitroglycer 2018-05 Yes [id number] 1 tab SL [facility] in 0.4 mg 0-29 q5min up ity of sublingual 00:00: to 3 doses [place] tablet 00 PRN chest Medical pain, then Branch activate 911. nitroglycer 2018-05 Yes [id number] 1 tab SL [facility] in 0.4 mg 0-29 q5min up ity of sublingual 00:00: to 3 doses [place] tablet 00 PRN chest Medical pain, then Branch activate 911. nitroglycer 2018-05 Yes [id number] 1 tab SL [facility] in 0.4 mg 0-29 q5min up ity of sublingual 00:00: to 3 doses [place] tablet 00 PRN chest Medical pain, then Branch activate 911. nitroglycer 2018-05 Yes [id number] 1 tab SL [facility] in 0.4 mg 0-29 q5min up ity of sublingual 00:00: to 3 doses [place] tablet 00 PRN chest Medical pain, then Branch activate 911. nitroglycer 2018-05 Yes [id number] 1 tab SL [facility] in 0.4 mg 0-29 q5min up ity of sublingual 00:00: to 3 doses [place] tablet 00 PRN chest Medical pain, then Branch activate 911. nitroglycer 2018-05 Yes [id number] 1 tab SL [facility] in 0.4 mg 0-29 q5min up ity of sublingual 00:00: to 3 doses [place] tablet 00 PRN chest Medical pain, then Branch activate 911. nitroglycer 2018-05 Yes [id number] 1 tab SL [facility] in 0.4 mg 0-29 q5min up ity of sublingual 00:00: to 3 doses [place] tablet 00 PRN chest Medical pain, then Branch activate 911. nitroglycer 2018-05 Yes [id number] 1 tab SL [facility] in 0.4 mg 0-29 q5min up ity of sublingual 00:00: to 3 doses [place] tablet 00 PRN chest Medical pain, then Branch activate 911. nitroglycer 2018-05 Yes [id number] 1 tab SL [facility] in 0.4 mg 0-29 q5min up ity of sublingual 00:00: to 3 doses [place] tablet 00 PRN chest Medical pain, then Branch activate 911. nitroglycer 2018-05 Yes [id number] 1 tab SL [facility] in 0.4 mg 0-29 q5min up ity of sublingual 00:00: to 3 doses [place] tablet 00 PRN chest Medical pain, then Branch activate 911. nitroglycer 2018-05 Yes [id number] 1 tab SL [facility] in 0.4 mg 0-29 q5min up ity of sublingual 00:00: to 3 doses [place] tablet 00 PRN chest Medical pain, then Branch activate 911. nitroglycer 2018-05 Yes [id number] 1 tab SL [facility] in 0.4 mg 0-29 q5min up ity of sublingual 00:00: to 3 doses [place] tablet 00 PRN chest Medical pain, then Branch activate 911. nitroglycer 2018-05 Yes [id number] 1 tab SL [facility] in 0.4 mg 0-29 q5min up ity of sublingual 00:00: to 3 doses [place] tablet 00 PRN chest Medical pain, then Branch activate 911. nitroglycer 2018-05 Yes [id number] 1 tab SL [facility] in 0.4 mg 0-29 q5min up ity of sublingual 00:00: to 3 doses [place] tablet 00 PRN chest Medical pain, then Branch activate 911. nitroglycer 2018-05 Yes [id number] 1 tab SL [facility] in 0.4 mg 0-29 q5min up ity of sublingual 00:00: to 3 doses [place] tablet 00 PRN chest Medical pain, then Branch activate 911. nitroglycer 2018-05 Yes [id number] 1 tab SL [facility] in 0.4 mg 0-29 q5min up ity of sublingual 00:00: to 3 doses [place] tablet 00 PRN chest Medical pain, then Branch activate 911. nitroglycer 2018-05 Yes [id number] 1 tab SL [facility] in 0.4 mg 0-29 q5min up ity of sublingual 00:00: to 3 doses [place] tablet 00 PRN chest Medical pain, then Branch activate 911. nitroglycer 2018-05 Yes [id number] 1 tab SL [facility] in 0.4 mg 0-29 q5min up ity of sublingual 00:00: to 3 doses [place] tablet 00 PRN chest Medical pain, then Branch activate 911. nitroglycer 2018-05 Yes [id number] 1 tab SL [facility] in 0.4 mg 0-29 q5min up ity of sublingual 00:00: to 3 doses [place] tablet 00 PRN chest Medical pain, then Branch activate 911. nitroglycer 2018-05 Yes [id number] 1 tab SL [facility] in 0.4 mg 0-29 q5min up ity of sublingual 00:00: to 3 doses [place] tablet 00 PRN chest Medical pain, then Branch activate 911. nitroglycer 2018-05 Yes [id number] 1 tab SL [facility] in 0.4 mg 0-29 q5min up ity of sublingual 00:00: to 3 doses [place] tablet 00 PRN chest Medical pain, then Branch activate 911. nitroglycer 2018-05 Yes [id number] 1 tab SL [facility] in 0.4 mg 0-29 q5min up ity of sublingual 00:00: to 3 doses [place] tablet 00 PRN chest Medical pain, then Branch activate 911. nitroglycer 2018-05 Yes [id number] 1 tab SL [facility] in 0.4 mg 0-29 q5min up ity of sublingual 00:00: to 3 doses [place] tablet 00 PRN chest Medical pain, then Branch activate 911. atorvastati 2018-05 Yes [id number] 40mg Take 1 [facility] n (LIPITOR) 0-29 tablet by ity of 40 mg 00:00: mouth at [place] tablet 00 bedtime. Medical [facility] clopidogrel 2018-05 Yes [id number] 75mg Take 1 [facility] (PLAVIX) 75 0-29 tablet by ity of mg tablet 00:00: mouth [place] 00 daily. Medical [facility] DULoxetine 2018-05 Yes [id number] 30mg Take 1 [facility] 30 mg 0-29 capsule by ity of capsule 00:00: mouth [place] 00 daily. Medical [facility] pantoprazol 2018-05 Yes [id number] 40mg Take 1 [facility] e 40 mg EC 0-29 tablet by ity of tablet 00:00: mouth [place] 00 daily. Medical [facility] potassium 2018-05 Yes [id number] 10meq Take 1 [facility] chloride 10 0-29 tablet by ity of mEq CR 00:00: mouth [place] tablet 00 daily. [facility] albuterol 2018-05 Yes [id number] 2{puff} Inhale 2 [facility] 90 0-29 Puffs ity of mcg/actuati 00:00: every 6 [place] on inhaler 00 (six) Medical hours as Branch needed for Wheezing or Shortness of Breath. nitroglycer 2018-05 Yes [id number] 1 tab SL [facility] in 0.4 mg 0-29 q5min up ity of sublingual 00:00: to 3 doses [place] tablet 00 PRN chest Medical pain, then Branch activate 911. atorvastati 2018-05 Yes [id number] 40mg Take 1 [facility] n (LIPITOR) 0-29 tablet by ity of 40 mg 00:00: mouth at [place] tablet 00 bedtime. Medical [facility] clopidogrel 2018-05 Yes [id number] 75mg Take 1 [facility] (PLAVIX) 75 0-29 tablet by ity of mg tablet 00:00: mouth [place] 00 daily. [facility] DULoxetine 2018-05 Yes [id number] 30mg Take 1 [facility] 30 mg 0-29 capsule by ity of capsule 00:00: mouth [place] 00 daily. Medical [facility] pantoprazol 2018-05 Yes [id number] 40mg Take 1 [facility] e 40 mg EC 0-29 tablet by ity of tablet 00:00: mouth [place] 00 daily. Medical [facility] potassium 2018-05 Yes [id number] 10meq Take 1 [facility] chloride 10 0-29 tablet by ity of mEq CR 00:00: mouth [place] tablet 00 daily. [facility] albuterol 2018-05 Yes [id number] 2{puff} Inhale 2 [facility] 90 0-29 Puffs ity of mcg/actuati 00:00: every 6 [place] on inhaler 00 (six) Medical hours as Branch needed for Wheezing or Shortness of Breath. nitroglycer 2018-05 Yes [id number] 1 tab SL [facility] in 0.4 mg 0-29 q5min up ity of sublingual 00:00: to 3 doses [place] tablet 00 PRN chest Medical pain, then Branch activate 911. atorvastati 2018-05 Yes [id number] 40mg Take 1 [facility] n (LIPITOR) 0-29 tablet by ity of 40 mg 00:00: mouth at [place] tablet 00 bedtime. Medical [facility] clopidogrel 2018-05 Yes [id number] 75mg Take 1 [facility] (PLAVIX) 75 0-29 tablet by ity of mg tablet 00:00: mouth [place] 00 daily. [facility] DULoxetine 2018-05 Yes [id number] 30mg Take 1 [facility] 30 mg 0-29 capsule by ity of capsule 00:00: mouth [place] 00 daily. [facility] pantoprazol 2018-05 Yes [id number] 40mg Take 1 [facility] e 40 mg EC 0-29 tablet by ity of tablet 00:00: mouth [place] 00 daily. [facility] potassium 2018-05 Yes [id number] 10meq Take 1 [facility] chloride 10 0-29 tablet by ity of mEq CR 00:00: mouth [place] tablet 00 daily. [facility] albuterol 2018-05 Yes [id number] 2{puff} Inhale 2 [facility] 90 0-29 Puffs ity of mcg/actuati 00:00: every 6 [place] on inhaler 00 (six) Medical hours as Branch needed for Wheezing or Shortness of Breath. nitroglycer 2018-05 Yes [id number] 1 tab SL [facility] in 0.4 mg 0-29 q5min up ity of sublingual 00:00: to 3 doses [place] tablet 00 PRN chest Medical pain, then Branch activate 911. atorvastati 2018-05 Yes [id number] 40mg Take 1 [facility] n (LIPITOR) 0-29 tablet by ity of 40 mg 00:00: mouth at [place] tablet 00 bedtime. [facility] clopidogrel 2018-05 Yes [id number] 75mg Take 1 [facility] (PLAVIX) 75 0-29 tablet by ity of mg tablet 00:00: mouth [place] 00 daily. [facility] DULoxetine 2018-05 Yes [id number] 30mg Take 1 [facility] 30 mg 0-29 capsule by ity of capsule 00:00: mouth [place] 00 daily. [facility] pantoprazol 2018-05 Yes [id number] 40mg Take 1 [facility] e 40 mg EC 0-29 tablet by ity of tablet 00:00: mouth [place] 00 daily. [facility] potassium 2018-05 Yes [id number] 10meq Take 1 [facility] n[facility] chloride 10 0-29 tablet by ity of mEq CR 00:00: mouth [place] tablet 00 daily. [facility] albuterol 2018-05 Yes [id number] 2{puff} Inhale 2 [facility] 90 0-29 Puffs ity of mcg/actuati 00:00: every 6 [place] on inhaler 00 (six) Medical hours as Branch needed for Wheezing or Shortness of Breath. nitroglycer 2018-05 Yes [id number] 1 tab SL [facility] in 0.4 mg 0-29 q5min up ity of sublingual 00:00: to 3 doses [place] tablet 00 PRN chest Medical pain, then Branch activate 911. atorvastati 2018-05 Yes [id number] 40mg Take 1 [facility] n (LIPITOR) 0-29 tablet by ity of 40 mg 00:00: mouth at [place] tablet 00 bedtime. Medical [facility] clopidogrel 2018-05 Yes [id number] 75mg Take 1 [facility] (PLAVIX) 75 0-29 tablet by ity of mg tablet 00:00: mouth [place] 00 daily. [facility] DULoxetine 2018-05 Yes [id number] 30mg Take 1 [facility] 30 mg 0-29 capsule by ity of capsule 00:00: mouth [place] 00 daily. [facility] pantoprazol 2018-05 Yes [id number] 40mg Take 1 [facility] e 40 mg EC 0-29 tablet by ity of tablet 00:00: mouth [place] 00 daily. [facility] potassium 2018-05 Yes [id number] 10meq Take 1 [facility] n[facility] chloride 10 0-29 tablet by ity of mEq CR 00:00: mouth [place] tablet 00 daily. [facility] albuterol 2018-05 Yes [id number] 2{puff} Inhale 2 [facility] 90 0-29 Puffs ity of mcg/actuati 00:00: every 6 [place] on inhaler 00 (six) Medical hours as Branch needed for Wheezing or Shortness of Breath. nitroglycer 2018-05 Yes [id number] 1 tab SL [facility] in 0.4 mg 0-29 q5min up ity of sublingual 00:00: to 3 doses [place] tablet 00 PRN chest Medical pain, then Branch activate 911. atorvastati 2018-05 Yes [id number] 40mg Take 1 [facility] n (LIPITOR) 0-29 tablet by ity of 40 mg 00:00: mouth at [place] tablet 00 bedtime. [facility] clopidogrel 2018-05 Yes [id number] 75mg Take 1 [facility] (PLAVIX) 75 0-29 tablet by ity of mg tablet 00:00: mouth [place] 00 daily. [facility] DULoxetine 2018-05 Yes [id number] 30mg Take 1 [facility] 30 mg 0-29 capsule by ity of capsule 00:00: mouth [place] 00 daily. [facility] pantoprazol 2018-05 Yes [id number] 40mg Take 1 [facility] e 40 mg EC 0-29 tablet by ity of tablet 00:00: mouth [place] 00 daily. [facility] potassium 2018-05 Yes [id number] 10meq Take 1 [facility] nivers chloride 10 0-29 tablet by ity of mEq CR 00:00: mouth [place] tablet 00 daily. [facility] albuterol 2018-05 Yes [id number] 2{puff} Inhale 2 [facility] 90 0-29 Puffs ity of mcg/actuati 00:00: every 6 [place] on inhaler 00 (six) Medical hours as Branch needed for Wheezing or Shortness of Breath. nitroglycer 2018-05 Yes [id number] 1 tab SL [facility] in 0.4 mg 0-29 q5min up ity of sublingual 00:00: to 3 doses [place] tablet 00 PRN chest Medical pain, then Branch activate 911. atorvastati 2018-05 Yes [id number] 40mg Take 1 [facility] n (LIPITOR) 0-29 tablet by ity of 40 mg 00:00: mouth at [place] tablet 00 bedtime. [facility] clopidogrel 2018-05 Yes [id number] 75mg Take 1 [facility] (PLAVIX) 75 0-29 tablet by ity of mg tablet 00:00: mouth [place] 00 daily. [facility] DULoxetine 2018-05 Yes [id number] 30mg Take 1 [facility] 30 mg 0-29 capsule by ity of capsule 00:00: mouth [place] 00 daily. [facility] pantoprazol 2018-05 Yes [id number] 40mg Take 1 [facility] e 40 mg EC 0-29 tablet by ity of tablet 00:00: mouth [place] 00 daily. [facility] potassium 2018-05 Yes [id number] 10meq Take 1 [facility] nivers chloride 10 0-29 tablet by ity of mEq CR 00:00: mouth [place] tablet 00 daily. [facility] albuterol 2018-05 Yes [id number] 2{puff} Inhale 2 [facility] 90 0-29 Puffs ity of mcg/actuati 00:00: every 6 [place] on inhaler 00 (six) Medical hours as Branch needed for Wheezing or Shortness of Breath. nitroglycer 2018-05 Yes [id number] 1 tab SL [facility] in 0.4 mg 0-29 q5min up ity of sublingual 00:00: to 3 doses [place] tablet 00 PRN chest Medical pain, then Branch activate 911. DULoxetine 2018-05 Yes [id number] 30mg Take 1 [facility] 30 mg 0-29 capsule by ity of capsule 00:00: mouth [place] 00 daily. [facility] pantoprazol 2018-05 Yes [id number] 40mg Take 1 [facility] e 40 mg EC 0-29 tablet by ity of tablet 00:00: mouth [place] 00 daily. [facility] potassium 2018-05 Yes [id number] 10meq Take 1 [facility] nivers chloride 10 0-29 tablet by ity of mEq CR 00:00: mouth [place] tablet 00 daily. [facility] albuterol 2018-05 Yes [id number] 2{puff} Inhale 2 [facility] 90 0-29 Puffs ity of mcg/actuati 00:00: every 6 [place] on inhaler 00 (six) Medical hours as Branch needed for Wheezing or Shortness of Breath. nitroglycer 2018-05 Yes [id number] 1 tab SL [facility] in 0.4 mg 0-29 q5min up ity of sublingual 00:00: to 3 doses [place] tablet 00 PRN chest Medical pain, then Branch activate 911. DULoxetine 2018-05 Yes [id number] 30mg Take 1 [facility] 30 mg 0-29 capsule by ity of capsule 00:00: mouth [place] 00 daily. [facility] pantoprazol 2018-05 Yes [id number] 40mg Take 1 [facility] e 40 mg EC 0-29 tablet by ity of tablet 00:00: mouth [place] 00 daily. [facility] potassium 2018-05 Yes [id number] 10meq Take 1 [facility] nivers chloride 10 0-29 tablet by ity of mEq CR 00:00: mouth [place] tablet 00 daily. [facility] albuterol 2018-05 Yes [id number] 2{puff} Inhale 2 [facility] 90 0-29 Puffs ity of mcg/actuati 00:00: every 6 [place] inhaler 00 (six) Medical hours as Branch needed for Wheezing or Shortness of Breath. nitroglycer 2018-05 Yes [id number] 1 tab SL [facility] in 0.4 mg 0-29 q5min up ity of sublingual 00:00: to 3 doses [place] tablet 00 PRN chest Medical pain, then Branch activate 911. DULoxetine 2018-05 Yes [id number] 30mg Take 1 [facility] 30 mg 0-29 [...] Bran ch activate 911. albuterol 2018-05- No [id number] 2{puff} Inhale 2 [facility] 90 0-29 12-19 Puffs ity of mcg/actuati 00:00: 00:00 every 6 [place] on inhaler 00 :00 (six) Medical hours as Branch needed for Wheezing or Shortness of Breath. albuterol 2018-05 2020- No [id number] 2{puff} Inhale 2 [facility] 90 0-29 12-19 Puffs ity of mcg/actuati 00:00: 00:00 every 6 [place] on inhaler 00 :00 (six) Medical hours as Branch needed for Wheezing or Shortness of Breath. pantoprazol 2018-05 2020- No [id number] 40mg Take 1 [facility] e 40 mg EC -08 tablet by ity of tablet 00:00: 00:00 mouth [place] 00 :00 daily. [facility] potassium 2018-05 2020- No [id number] 10meq Take 1 [facility] chloride 10 -08 tablet by it y of mEq CR 00:00: 00:00 mouth [place] tablet 00 :00 daily. [facility] atorvastati 2018-05 2020- No [id number] 40mg Take 1 [facility] n (LIPITOR) 03-20 tablet by it y of 40 mg 00:00: 00:00 mouth at [place] tablet 00 :00 bedtime. [facility] clopidogrel 2018-05 2020- No [id number] 75mg Take 1 [facility] (PLAVIX) 75 0-29 03-20 tablet by it y of mg tablet 00:00: 00:00 mouth [place] 00 :00 daily. [facility] POTASSIUM 2019- Yes 1{tbl} Take 1 [facility] ers CHLORIDE [...] mouth ity of LOW DOSE) 15:12: daily. [place] 81 mg EC 10 Medical tablet Branch [...] mg EC 10 Medical tablet Branch atorvastati 0 Yes [id number] 40mg Take 1 [facility] n (LIPITOR) 7-05 tablet by ity of 40 mg 00:00: mouth at [place] tablet 00 bedtime. [facility] DULoxetine 2019-0 Yes [id number] 30mg Take 1 [facility] nivers 30 mg 7-05 capsule by ity of capsule 00:00: mouth [place] 00 daily. [facility] clopidogrel 2018- Yes [id number] 75mg Take 1 [facility] (PLAVIX) 75 7-05 tablet by ity of mg tablet 00:00: mouth [place] 00 daily. [facility] furosemide 2019-0 Yes [id number] 20mg Take 1 U nivers (LASIX) 20 7-05 tablet by ity of mg tablet 00:00: mouth [place] 00 daily. [facility] isosorbide 2019- Yes [id number] 30mg Take 1 [facility] mononitrate 7-05 tablet by ity of 30 mg 24 hr 00:00: mouth [place] tablet 00 daily. [facility] metoprolol 2019 Yes [id number] 25mg Take 1 U nivers tartrate 25 7-05 tablet by ity of mg tablet 00:00: mouth [place] 00 daily. [facility] fluconazole 2019- Yes [id number] 150mg Take 1 [facility] (DIFLUCAN) 7-05 tablet by ity of 150 mg 00:00: mouth [place] tablet 00 SEE-INSTRU Medical CTIONS. 1 Branch PO weekly/PRN yeast infection atorvastati Yes [id number] 40mg Take 1 [facility] n (LIPITOR) 7-05 tablet by ity of 40 mg 00:00: mouth at [place] tablet 00 bedtime. Medical [facility] DULoxetine Yes [id number] 30mg Take 1 [facility] n[facility] 30 mg 7-05 capsule by ity of capsule 00:00: mouth [place] 00 daily. [facility] clopidogrel Yes [id number] 75mg Take 1 [facility] (PLAVIX) 75 7-05 tablet by ity of mg tablet 00:00: mouth [place] 00 daily. [facility] furosemide Yes [id number] 20mg Take 1 [facility] (LASIX) 20 7-05 tablet by ity of mg tablet 00:00: mouth [place] 00 daily. [facility] isosorbide Yes [id number] 30mg Take 1 [facility] mononitrate 7-05 tablet by ity of 30 mg 24 hr 00:00: mouth [place] tablet 00 daily. [facility] metoprolol Yes [id number] 25mg Take 1 [facility] n[facility] tartrate 25 7-05 tablet by ity of mg tablet 00:00: mouth [place] 00 daily. Medical [facility] fluconazole Yes [id number] 150mg Take 1 [facility] (DIFLUCAN) 7-05 tablet by ity of 150 mg 00:00: mouth [place] tablet 00 SEE-INSTRU Medical CTIONS. 1 Branch PO weekly/PRN yeast infection atorvastati Yes [id number] 40mg Take 1 [facility] n (LIPITOR) 7-05 tablet by ity of 40 mg 00:00: mouth at [place] tablet 00 bedtime. Medical [facility] DULoxetine Yes [id number] 30mg Take 1 [facility] 30 mg 7-05 capsule by ity of capsule 00:00: mouth [place] 00 daily. [facility] clopidogrel Yes [id number] 75mg Take 1 [facility] (PLAVIX) 75 7-05 tablet by ity of mg tablet 00:00: mouth [place] 00 daily. [facility] furosemide 2019-0 Yes [id number] 20mg Take 1 [facility] (LASIX) 20 7-05 tablet by ity of mg tablet 00:00: mouth [place] 00 daily. [facility] isosorbide 2019- Yes [id number] 30mg Take 1 [facility] mononitrate 7-05 tablet by ity of 30 mg 24 hr 00:00: mouth [place] tablet 00 daily. [facility] metoprolol 2019- Yes [id number] 25mg Take 1 [facility] nivers tartrate 25 7-05 tablet by ity of mg tablet 00:00: mouth [place] 00 daily. [facility] fluconazole 2019- Yes [id number] 150mg Take 1 [facility] (DIFLUCAN) 7-05 tablet by ity of 150 mg 00:00: mouth [place] tablet 00 SEE-INSTRU Medical CTIONS. 1 Branch PO weekly/PRN yeast infection atorvastati 2019-0 Yes [id number] 40mg Take 1 [facility] n (LIPITOR) 7-05 tablet by ity of 40 mg 00:00: mouth at [place] tablet 00 bedtime. Medical [facility] DULoxetine 2019- Yes [id number] 30mg Take 1 [facility] n[facility] 30 mg 7-05 capsule by ity of capsule 00:00: mouth [place] 00 daily. [facility] clopidogrel 2019-0 Yes [id number] 75mg Take 1 [facility] (PLAVIX) 75 7-05 tablet by ity of mg tablet 00:00: mouth [place] 00 daily. [facility] furosemide 2019- Yes [id number] 20mg Take 1 [facility] (LASIX) 20 7-05 tablet by ity of mg tablet 00:00: mouth [place] 00 daily. [facility] isosorbide 2019- Yes [id number] 30mg Take 1 [facility] mononitrate 7-05 tablet by ity of 30 mg 24 hr 00:00: mouth [place] tablet 00 daily. [facility] metoprolol 2019- Yes [id number] 25mg Take 1 [facility] nivers tartrate 25 7-05 tablet by ity of mg tablet 00:00: mouth [place] 00 daily. [facility] fluconazole 2019-0 Yes [id number] 150mg Take 1 [facility] (DIFLUCAN) 7-05 tablet by ity of 150 mg 00:00: mouth [place] tablet 00 SEE-INSTRU Medical CTIONS. 1 Branch PO weekly/PRN yeast infection atorvastati 2019- Yes [id number] 40mg Take 1 [facility] n (LIPITOR) 7-05 tablet by ity of 40 mg 00:00: mouth at [place] tablet 00 bedtime. Medical [facility] DULoxetine 2019 Yes [id number] 30mg Take 1 [facility] 30 mg 7-05 capsule by ity of capsule 00:00: mouth [place] 00 daily. [facility] clopidogrel Yes [id number] 75mg Take 1 [facility] (PLAVIX) 75 7-05 tablet by ity of mg tablet 00:00: mouth [place] 00 daily. [facility] furosemide Yes [id number] 20mg Take 1 [facility] (LASIX) 20 7-05 tablet by ity of mg tablet 00:00: mouth [place] 00 daily. [facility] isosorbide Yes [id number] 30mg Take 1 [facility] mononitrate 7-05 tablet by ity of 30 mg 24 hr 00:00: mouth [place] tablet 00 daily. [facility] metoprolol Yes [id number] 25mg Take 1 [facility] nivers tartrate 25 7-05 tablet by ity of mg tablet 00:00: mouth [place] 00 daily. [facility] fluconazole Yes [id number] 150mg Take 1 [facility] (DIFLUCAN) 7-05 tablet by ity of 150 mg 00:00: mouth [place] tablet 00 SEE-INSTRU Medical CTIONS. 1 Branch PO weekly/PRN yeast infection atorvastati Yes [id number] 40mg Take 1 [facility] n (LIPITOR) 7-05 tablet by ity of 40 mg 00:00: mouth at [place] tablet 00 bedtime. Medical [facility] DULoxetine Yes [id number] 30mg Take 1 [facility] n[facility] 30 mg 7-05 capsule by ity of capsule 00:00: mouth [place] 00 daily. [facility] clopidogrel Yes [id number] 75mg Take 1 [facility] (PLAVIX) 75 7-05 tablet by ity of mg tablet 00:00: mouth [place] 00 daily. [facility] furosemide Yes [id number] 20mg Take 1 [facility] n[facility] (LASIX) 20 7-05 tablet by ity of mg tablet 00:00: mouth [place] 00 daily. Medical [facility] isosorbide Yes [id number] 30mg Take 1 [facility] mononitrate 7-05 tablet by ity of 30 mg 24 hr 00:00: mouth [place] tablet 00 daily. [facility] metoprolol 2019 Yes [id number] 25mg Take 1 [facility] nivers tartrate 25 7-05 tablet by ity of mg tablet 00:00: mouth [place] 00 daily. [facility] fluconazole 2019- Yes [id number] 150mg Take 1 [facility] (DIFLUCAN) 7-05 tablet by ity of 150 mg 00:00: mouth [place] tablet 00 SEE-INSTRU Medical CTIONS. 1 Branch PO weekly/PRN yeast infection atorvastati Yes [id number] 40mg Take 1 [facility] n (LIPITOR) 7-05 tablet by ity of 40 mg 00:00: mouth at [place] tablet 00 bedtime. Medical [facility] DULoxetine Yes [id number] 30mg Take 1 [facility] n[facility] 30 mg 7-05 capsule by ity of capsule 00:00: mouth [place] 00 daily. [facility] clopidogrel Yes [id number] 75mg Take 1 [facility] (PLAVIX) 75 7-05 tablet by ity of mg tablet 00:00: mouth [place] 00 daily. [facility] furosemide Yes [id number] 20mg Take 1 [facility] (LASIX) 20 7-05 tablet by ity of mg tablet 00:00: mouth [place] 00 daily. [facility] isosorbide Yes [id number] 30mg Take 1 [facility] mononitrate 7-05 tablet by ity of 30 mg 24 hr 00:00: mouth [place] tablet 00 daily. [facility] metoprolol Yes [id number] 25mg Take 1 [facility] nivers tartrate 25 7-05 tablet by ity of mg tablet 00:00: mouth [place] 00 daily. [facility] fluconazole Yes [id number] 150mg Take 1 [facility] (DIFLUCAN) 7-05 tablet by ity of 150 mg 00:00: mouth [place] tablet 00 SEE-INSTRU Medical CTIONS. 1 Branch PO weekly/PRN yeast infection atorvastati Yes [id number] 40mg Take 1 [facility] n (LIPITOR) 7-05 tablet by ity of 40 mg 00:00: mouth at [place] tablet 00 bedtime. Medical [facility] DULoxetine Yes [id number] 30mg Take 1 [facility] n[facility] 30 mg 7-05 capsule by ity of capsule 00:00: mouth [place] 00 daily. [facility] clopidogrel Yes [id number] 75mg Take 1 [facility] (PLAVIX) 75 7-05 tablet by ity of mg tablet 00:00: mouth [place] 00 daily. [facility] furosemide 2019- Yes [id number] 20mg Take 1 [facility] (LASIX) 20 7-05 tablet by ity of mg tablet 00:00: mouth [place] 00 daily. [facility] isosorbide Yes [id number] 30mg Take 1 [facility] mononitrate 7-05 tablet by ity of 30 mg 24 hr 00:00: mouth [place] tablet 00 daily. [facility] metoprolol Yes [id number] 25mg Take 1 [facility] nivers tartrate 25 7-05 tablet by ity of mg tablet 00:00: mouth [place] 00 daily. [facility] fluconazole Yes [id number] 150mg Take 1 [facility] (DIFLUCAN) 7-05 tablet by ity of 150 mg 00:00: mouth [place] tablet 00 SEE-INSTRU Medical CTIONS. 1 Branch PO weekly/PRN yeast infection metoprolol Yes [id number] 25mg Take 1 [facility] nivers tartrate 25 7-05 tablet by ity of mg tablet 00:00: mouth [place] 00 daily. [facility] metoprolol Yes [id number] 25mg Take 1 [facility] nivers tartrate 25 7-05 tablet by ity of mg tablet 00:00: mouth [place] 00 daily. [facility] metoprolol Yes [id number] 25mg Take 1 [facility] nivers tartrate 25 7-05 tablet by ity of mg tablet 00:00: mouth [place] 00 daily. [facility] metoprolol Yes [id number] 25mg Take 1 [facility] nivers tartrate 25 7-05 tablet by ity of mg tablet 00:00: mouth [place] 00 daily. [facility] metoprolol Yes [id number] 25mg Take 1 [facility] nivers tartrate 25 7-05 tablet by ity of mg tablet 00:00: mouth [place] 00 daily. [facility] metoprolol Yes [id number] 25mg Take 1 [facility] nivers tartrate 25 7-05 tablet by ity of mg tablet 00:00: mouth [place] 00 daily. [facility] metoprolol Yes [id number] 25mg Take 1 [facility] nivers tartrate 25 7-05 tablet by ity of mg tablet 00:00: mouth [place] 00 daily. [facility] metoprolol 2020- No [id number] 25mg Take 1 [facility] tartrate 25 11-30 03-20 tablet by it y of mg tablet 00:00: 00:00 mouth [place] 00 :00 daily. [facility] isosorbide 2020- No [id number] 30mg Take 1 [facility] mononitrate 11-30 tablet by it y of 30 mg 24 hr 00:00: 00:00 mouth [place] tablet 00 :00 daily. [facility] isosorbide 2020- No [id number] 30mg Take 1 [facility] mononitrate 11-30 tablet by it y of 30 mg 24 hr 00:00: 00:00 [place] tablet 00 :00 daily. [facility] isosorbide 2020- No [id number] 30mg Take 1 [facility] mononitrate 11-30 tablet [...] mouth ity o f tablet 18:18: daily. [place] [address] Medical Branch aspirin 2019-0 Yes 81mg Take 81 mg [facility] ers (ASPIRIN 6-19 by mouth ity of LOW DOSE) 18:18: daily. [place] 81 mg EC 24 Medical tablet Branch POTASSIUM 2018-0 Yes 1{tbl} Take 1 [facility] ers CHLORIDE 6-19 tablet by ity of (KLOR-CON 18:18: mouth [place] 10 ORAL) 24 daily. Medical Branch pantoprazol 0 Yes 40mg Take 40 mg [facility] e 40 mg EC 6-19 by mouth ity o f tablet 18:18: daily. [place] [address] Medical Branch aspirin 2018-0 Yes 81mg Take 81 mg [facility] ers (ASPIRIN 6-19 by mouth ity of LOW DOSE) 18:18: daily. [place] 81 mg EC 24 Medical tablet Branch POTASSIUM 2018-0 Yes 1{tbl} Take 1 [facility] ers CHLORIDE 6-19 tablet by ity of (KLOR-CON 18:18: mouth [place] 10 ORAL) 24 daily. Medical Branch pantoprazol 0 Yes 40mg Take 40 mg [facility] e 40 mg EC 6-19 by mouth ity o f tablet 18:18: daily. [place] [address] Medical Branch aspirin 2018-0 Yes 81mg Take 81 mg [facility] ers (ASPIRIN 6-19 by mouth ity of LOW DOSE) 18:18: daily. [place] 81 mg EC 24 Medical tablet Branch POTASSIUM 2018-0 Yes 1{tbl} Take 1 [facility] ers CHLORIDE 6-19 tablet by ity of (KLOR-CON 18:18: mouth [place] 10 ORAL) 24 daily. Medical Branch pantoprazol 0 Yes 40mg Take 40 mg [facility] e 40 mg EC 6-19 by mouth ity o f tablet 18:18: daily. [place] [address] Medical Branch aspirin 2018-0 Yes 81mg Take 81 mg [facility] ers (ASPIRIN 6-19 by mouth ity of LOW DOSE) 18:18: daily. [place] 81 mg EC 24 Medical tablet Branch phenazopyri 2018-0 Yes [id number] 200mg Take 1 [facility] dine 200 mg 6-02 tablet by ity of tablet 00:00: mouth 3 (three) Medical times Branch daily. phenazopyri 2019-0 Yes [id number] 200mg Take 1 [facility] dine 200 mg 6-02 tablet by ity of tablet 00:00: mouth 3 (three) Medical times Branch daily. phenazopyri 2018-0 Yes [id number] 200mg Take 1 [facility] dine 200 mg 6-02 tablet by ity of tablet 00:00: mouth 3 (three) Medical times Branch daily. phenazopyri 2018-0 Yes [id number] 200mg Take 1 [facility] dine 200 mg 6-02 tablet by ity of tablet 00:00: mouth 3 (three) Medical times Branch daily. phenazopyri 2018-0 Yes [id number] 200mg Take 1 [facility] dine 200 mg 6-02 tablet by ity of tablet 00:00: mouth 3 (three) Medical times Branch daily. phenazopyri 2018- Yes [id number] 200mg Take 1 [facility] dine 200 mg 6-02 tablet by ity of tablet 00:00: mouth (three) Medical times Branch daily. phenazopyri 2018- Yes [id number] 200mg Take 1 [facility] dine 200 mg 6-02 tablet by ity of tablet 00:00: mouth (three) Medical times Branch daily. phenazopyri 2018- Yes [id number] 200mg Take 1 [facility] dine 200 mg 6-02 tablet by ity of tablet 00:00: mouth (three) Medical times Branch daily. phenazopyri 2018-0 Yes [id number] 200mg Take 1 [facility] dine 200 mg 6-02 tablet by ity of tablet 00:00: mouth (three) Medical times Branch daily. phenazopyri 2018-0 Yes [id number] 200mg Take 1 [facility] dine 200 mg 6-02 tablet by ity of tablet 00:00: mouth (three) Medical times Branch daily. phenazopyri 2018-0 Yes [id number] 200mg Take 1 [facility] dine 200 mg 6-02 tablet by ity of tablet 00:00: mouth 3 (three) Medical times Branch daily. phenazopyri 2018-0 Yes [id number] 200mg Take 1 [facility] dine 200 mg 6-02 tablet by ity of tablet 00:00: mouth 3 (three) Medical times Branch daily. phenazopyri 2018-0 Yes [id number] 200mg Take 1 [facility] dine 200 mg 6-02 tablet by ity of tablet 00:00: mouth 3 (three) Medical times Branch daily. phenazopyri 2019-0 Yes [id number] 200mg Take 1 [facility] dine 200 mg 6-02 tablet by ity of tablet 00:00: mouth 3 (three) Medical times Branch daily. phenazopyri 2018-0 Yes [id number] 200mg Take 1 [facility] dine 200 mg 6-02 tablet by ity of tablet 00:00: mouth 3 (three) Medical times Branch daily. phenazopyri 2018-0 Yes [id number] 200mg Take 1 [facility] dine 200 mg 6-02 tablet by ity of tablet 00:00: mouth 3 (three) Medical times Branch daily. phenazopyri 2018-0 Yes [id number] 200mg Take 1 [facility] dine 200 mg 6-02 tablet by ity of tablet 00:00: mouth 3 (three) Medical times Branch daily. phenazopyri 2018-0 Yes [id number] 200mg Take 1 [facility] dine 200 mg 6-02 tablet by ity of tablet 00:00: mouth (three) Medical times Branch daily. phenazopyri 2018- Yes [id number] 200mg Take 1 [facility] dine 200 mg 6-02 tablet by ity of tablet 00:00: mouth (three) Medical times Branch daily. phenazopyri 2018-0 Yes [id number] 200mg Take 1 [facility] dine 200 mg 6-02 tablet by ity of tablet 00:00: mouth [place] (three) Medical times Branch daily. phenazopyri 2018-0 Yes [id number] 200mg Take 1 [facility] dine 200 mg 6-02 tablet by ity of tablet 00:00: mouth 3 [place] (three) Medical times Branch daily. phenazopyri 2018-0 Yes [id number] 200mg Take 1 [facility] dine 200 mg 6-02 tablet by ity of tablet 00:00: mouth 3 [place] (three) Medical times Branch daily. phenazopyri 2018-0 Yes [id number] 200mg Take 1 [facility] dine 200 mg 6-02 tablet by ity of tablet 00:00: mouth 3 [place] (three) Medical times Branch daily. phenazopyri 2018-0 Yes [id number] 200mg Take 1 [facility] dine 200 mg 6-02 tablet by ity of tablet 00:00: mouth 3 [place] (three) Medical times Branch daily. phenazopyri 2019-0 Yes [id number] 200mg Take 1 [facility] dine 200 mg 6-02 tablet by ity of tablet 00:00: mouth 3 [place] 00 (three) Medical times Branch daily. phenazopyri 2018-0 Yes [id number] 200mg Take 1 [facility] dine 200 mg 6-02 tablet by ity of tablet 00:00: mouth 3 [place] 00 (three) Medical times Branch daily. phenazopyri 2018-0 Yes [id number] 200mg Take 1 [facility] dine 200 mg 6-02 tablet by ity of tablet 00:00: mouth 3 [place] 00 (three) Medical times Branch daily. phenazopyri 2018-0 Yes [id number] 200mg Take 1 [facility] dine 200 mg 6-02 tablet by ity of tablet 00:00: mouth 3 [place] 00 (three) Medical times Branch daily. phenazopyri 2018-0 Yes [id number] 200mg Take 1 [facility] dine 200 mg 6-02 tablet by ity of tablet 00:00: mouth 3 [place] 00 (three) Medical times Branch daily. phenazopyri 2018-0 Yes [id number] 200mg Take 1 [facility] dine 200 mg 6-02 tablet by ity of tablet 00:00: mouth 3 [place] 00 (three) Medical times Branch daily. phenazopyri 2018-0 Yes [id number] 200mg Take 1 [facility] dine 200 mg 6-02 tablet by ity of tablet 00:00: mouth 3 [place] 00 (three) Medical times Branch daily. phenazopyri 2018-0 Yes [id number] 200mg Take 1 [facility] dine 200 mg 6-02 tablet by ity of tablet 00:00: mouth 3 [place] 00 (three) Medical times Branch daily. phenazopyri 2018-0 Yes [id number] 200mg Take 1 [facility] dine 200 mg 6-02 tablet by ity of tablet 00:00: mouth 3 [place] 00 (three) Medical times Branch daily. phenazopyri 2018-0 Yes [id number] 200mg Take 1 [facility] dine 200 mg 6-02 tablet by ity of tablet 00:00: mouth 3 [place] 00 (three) Medical times Branch daily. phenazopyri 2018- 2020- No [id number] 200mg Take 1 [facility] dine 200 mg 6-02 08-14 tablet by it y of tablet 00:00: 00:00 mouth 3 [place] 00 :00 (three) Medical times Branch daily. phenazopyri 2020- No [id number] 200mg Take 1 [facility] dine 200 mg 10-28 0814 tablet by it y of tablet 00:00: 00:00 mouth 3 [place] 00 :00 (three) Medical times Branch daily. miSOPROStol 2018- Yes [id number] Take one [facility] 200 mcg 5-10 tablet the ity of tablet 00:00: night [place] 00 before Medical procedure, Branch take one table the morning of procedure. miSOPROStol 2018- Yes [id number] Take one [facility] 200 mcg 5-10 tablet the ity of tablet 00:00: night [place] 00 before Medical procedure, Branch take one table the morning of procedure. miSOPROStol 2018- Yes [id number] Take one [facility] 200 mcg 5-10 tablet the ity of tablet 00:00: night [place] 00 before Medical procedure, Branch take one table the morning of procedure. miSOPROStol Yes [id number] Take one [facility] 200 mcg 5-10 tablet the ity of tablet 00:00: night [place] 00 before Medical procedure, Branch take one table the morning of procedure. miSOPROStol 2018- Yes [id number] Take one [facility] 200 mcg 5-10 tablet the ity of tablet 00:00: night [place] 00 before Medical procedure, Branch take one table the morning of procedure. miSOPROStol 2018- Yes [id number] Take one [facility] 200 mcg 5-10 tablet the ity of tablet 00:00: night [place] 00 before Medical procedure, Branch take one table the morning of procedure. miSOPROStol 2019- No [id number] Take one [facility] 200 mcg 5-10 09-09 tablet the ity o f tablet 00:00: 00:00 night [place] 00 :00 before Medical procedure, Branch take one table the morning of procedure. miSOPROStol 2019- No [id number] Take one [facility] 200 mcg 5-10 09-09 tablet the ity o f tablet 00:00: 00:00 night [place] 00 :00 before Medical procedure, Branch take one table the morning of procedure. escitalopra 2018- Yes [id number] 10mg Take 1 [facility] m oxalate 4-30 tablet by ity o f (LEXAPRO) 00:00: mouth [place] 10 mg 00 daily. Medical tablet Branch escitalopra 2018- Yes [id number] 10mg Take 1 [facility] m oxalate 4-30 tablet by ity o f (LEXAPRO) 00:00: mouth [place] 10 mg 00 daily. Medical tablet Branch escitalopra Yes [id number] 10mg Take 1 [facility] m oxalate 4-30 tablet by ity o f (LEXAPRO) 00:00: mouth [place] 10 mg 00 daily. Medical tablet Branch escitalopra Yes [id number] 10mg Take 1 [facility] m oxalate 4-30 tablet by ity o f (LEXAPRO) 00:00: mouth [place] 10 mg 00 daily. Medical tablet Branch escitalopra Yes [id number] 10mg Take 1 [facility] m oxalate 4-30 tablet by ity o f (LEXAPRO) 00:00: mouth [place] 10 mg 00 daily. Medical tablet Branch escitalopra Yes [id number] 10mg Take 1 [facility] m oxalate 4-30 tablet by ity o f (LEXAPRO) 00:00: mouth [place] 10 mg 00 daily. Medical tablet Branch escitalopra 2019- No [id number] 10mg Take 1 [facility] m oxalate 4-30 09-09 tablet by ity of (LEXAPRO) 00:00: 00:00 mouth [place] 10 mg 00 :00 daily. Medical tablet Branch escitalopra 2019- No [id number] 10mg Take 1 [facility] m oxalate 4-30 09-09 tablet by ity of (LEXAPRO) 00:00: 00:00 mouth [place] 10 mg 00 :00 daily. Medical tablet Branch Nitrofurant 2018- Yes [id number] 100mg Take 1 [facility] oin&Nit. 4-25 capsule by ity o f Macrocryst 00:00: mouth [place] (MACROBID) 00 daily. Medical 100 mg Branch capsule Nitrofurant 2018- Yes [id number] 100mg Take 1 [facility] oin&Nit. 4-25 capsule by ity o f Macrocryst 00:00: mouth [place] (MACROBID) 00 daily. Medical 100 mg Branch capsule Nitrofurant 2018- Yes [id number] 100mg Take 1 [facility] oin&Nit. 4-25 capsule by ity o f Macrocryst 00:00: mouth [place] (MACROBID) 00 daily. Medical 100 mg Branch capsule Nitrofurant 2018- Yes [id number] 100mg Take 1 [facility] oin&Nit. 4-25 capsule by ity o f Macrocryst 00:00: mouth [place] (MACROBID) 00 daily. Medical 100 mg Branch capsule Nitrofurant 2019-0 Yes 100mg Take 1 [facility] oin&Nit. 4-25 capsule by ity o f Macrocryst 00:00: mouth [place] (MACROBID) 00 daily. Medical 100 mg Branch capsule Nitrofurant 2019-0 Yes [id number] 100mg Take 1 [facility] oin&Nit. 4-25 capsule [...] 100 mg Branch capsule Nitrofurant 2019-0 Yes [id number] 100mg Take 1 [facility] oin&Nit. 4-25 capsule by ity o f Macrocryst 00:00: mouth [place] (MACROBID) 00 daily. Medical 100 mg Branch capsule Nitrofurant 2019-0 Yes [id number] 100mg Take 1 [facility] oin&Nit. 4-25 capsule by ity o f Macrocryst 00:00: mouth [place] (MACROBID) 00 daily. Medical 100 mg Branch capsule Nitrofurant 2019-0 Yes [id number] 100mg Take 1 [facility] oin&Nit. 4-25 capsule by ity o f Macrocryst 00:00: mouth [place] (MACROBID) 00 daily. Medical 100 mg Branch capsule Nitrofurant 2018-0 Yes [id number] 100mg Take 1 [facility] oin&Nit. 4-25 capsule by ity o f Macrocryst 00:00: mouth [place] (MACROBID) 00 daily. Medical 100 mg Branch capsule Nitrofurant 2019-0 Yes [id number] 100mg Take 1 [facility] oin&Nit. 4-25 capsule by ity o f Macrocryst 00:00: mouth [place] (MACROBID) 00 daily. Medical 100 mg Branch capsule Nitrofurant 2018-0 Yes [id number] 100mg Take 1 [facility] oin&Nit. 4-25 capsule by ity o f Macrocryst 00:00: mouth [place] (MACROBID) 00 daily. Medical 100 mg Branch capsule Nitrofurant 2019-0 Yes [id number] 100mg Take 1 [facility] oin&Nit. 4-25 capsule by ity o f Macrocryst 00:00: mouth [place] (MACROBID) 00 daily. Medical 100 mg Branch capsule Nitrofurant 2019-0 Yes [id number] 100mg Take 1 [facility] oin&Nit. 4-25 capsule by ity o f Macrocryst 00:00: mouth [place] (MACROBID) 00 daily. Medical 100 mg Branch capsule Nitrofurant 2019-0 Yes [id number] 100mg Take 1 [facility] oin&Nit. 4-25 capsule by ity o f Macrocryst 00:00: mouth [place] (MACROBID) 00 daily. Medical 100 mg Branch capsule Nitrofurant 2019-0 Yes [id number] 100mg Take 1 [facility] oin&Nit. 4-25 capsule by ity o f Macrocryst 00:00: mouth [place] (MACROBID) 00 daily. Medical 100 mg Branch capsule Nitrofurant 2019-0 Yes [id number] 100mg Take 1 [facility] oin&Nit. 4-25 capsule by ity o f Macrocryst 00:00: mouth [place] (MACROBID) 00 daily. Medical 100 mg Branch capsule Nitrofurant 2019-0 Yes [id number] 100mg Take 1 [facility] oin&Nit. 4-25 capsule [...] 100 mg Branch capsule Nitrofurant 2018-0 Yes [id number] 100mg Take 1 [facility] oin&Nit. 4-25 capsule [...] 100 mg Branch capsule Nitrofurant 2019-0 Yes [id number] 100mg Take 1 [facility] oin&Nit. 4-25 capsule by ity o f Macrocryst 00:00: mouth [place] (MACROBID) 00 daily. Medical 100 mg Branch capsule Nitrofurant 2019-0 Yes [id number] 100mg Take 1 [facility] oin&Nit. 4-25 capsule by ity o f Macrocryst 00:00: mouth [place] (MACROBID) 00 daily. Medical 100 mg Branch capsule Nitrofurant 2019-0 Yes [id number] 100mg Take 1 [facility] oin&Nit. 4-25 capsule by ity o f Macrocryst 00:00: mouth [place] (MACROBID) 00 daily. Medical 100 mg Branch capsule Nitrofurant 2019-0 2020- No [id number] 100mg Take 1 [facility] oin&Nit. 4-25 08-14 capsule by ity of Macrocryst 00:00: 00:00 mouth [place] (MACROBID) 00 :00 daily. Medical 100 mg Branch capsule Nitrofurant 2019-0 2020- No [id number] 100mg Take 1 [facility] oin&Nit. 4-25 08-14 [...] 2019-0 Yes Univer s n 500 mg 09-18 ity of tablet 00:00: [place] 00 Medical Branch sulfamethox 2019-0 Yes Univer s azole-trime 09-18 ity of thoprim 00:00: [place] 800-160 mg 00 Medical per tablet Branch sulfamethox 2019-0 Yes Univer s azole-trime 09-18 ity of thoprim 00:00: [place] 800-160 mg 00 Medical per tablet Branch sulfamethox 2019-0 Yes Univer s azole-trime - ity of thoprim 00:00: [place] 800-160 mg 00 Medical per tablet Branch levoFLOXaci 2019-0 2019- No Unive rs n 500 mg 09-18 ity of tablet 00:00: 00:00 [place] 00 :00 Medical Branch levoFLOXaci 2019-0 2019- No Unive rs n 500 mg 09-18 ity of tablet 00:00: 00:00 [place] 00 :00 Medical Branch levETIRAcet 2019-0 Yes Univer s am 500 mg 4-06 ity of tablet 00:00: [place] 00 Medical Branch levETIRAcet 2019-0 Yes Univer s am 500 mg 4-06 ity of tablet 00:00: [place] 00 Medical Branch levETIRAcet 2019-0 Yes Univer s am 500 mg 4-06 ity of tablet 00:00: [place] 00 Medical Branch levETIRAcet 2019-0 Yes Univer s am 500 mg 4-06 ity of tablet 00:00: [place] 00 Medical Branch levETIRAcet 2019-0 Yes Univer s am 500 mg 4-06 ity of tablet 00:00: [place] 00 Medical Branch levETIRAcet 2019-0 Yes Univer s am 500 mg 4-06 ity of tablet 00:00: [place] 00 Medical Branch levETIRAcet 2019-0 Yes Univer s am 500 mg 4-06 ity of tablet 00:00: [place] 00 Medical Branch levETIRAcet 2019-0 Yes Univer s am 500 mg 4-06 ity of tablet 00:00: [place] 00 Medical Branch levETIRAcet 2019-0 Yes Univer s am 500 mg 4-06 ity of tablet 00:00: [place] 00 Medical Branch levETIRAcet 2019-0 Yes Univer [...] 500 mg 4-06 ity of tablet 00:00: [place] 00 Medical Branch levETIRAcet 2019-0 Yes Univer [...] 500 mg 4-06 ity of tablet 00:00: [place] 00 Medical Branch escitalopra 2019-0 Yes Univer s m oxalate 4-06 ity of 20 mg 00:00: [place] tablet 00 Medical Branch levETIRAcet 2019-0 Yes Univer s am 500 mg 4-06 ity of tablet 00:00: [place] 00 Medical Branch levETIRAcet 2019-0 Yes Univer s am 500 mg 4-06 ity of tablet 00:00: [place] 00 [facility] Branch levETIRAcet 2019-0 Yes Univer s am 500 mg 4-06 ity of tablet 00:00: [place] 00 [facility] levETIRAcet 2019-0 Yes Univer s am 500 mg 4-06 ity of tablet 00:00: [place] 00 [facility] levETIRAcet 2019-0 Yes Univer s am 500 mg 4-06 ity of tablet 00:00: [place] 00 [facility] levETIRAcet 2019-0 Yes Univer s am 500 mg 4-06 ity of tablet 00:00: [place] 00 [facility] levETIRAcet 2019-0 Yes Univer s am 500 mg 4-06 ity of tablet 00:00: [place] 00 [facility] levETIRAcet 2019-0 Yes Univer s am 500 mg 4-06 ity of tablet 00:00: [place] 00 [facility] levETIRAcet 2019-0 Yes Univer s am 500 mg 4-06 ity of tablet 00:00: [place] 00 [facility] levETIRAcet 2019-0 Yes Univer s am 500 mg 4-06 ity of tablet 00:00: [place] 00 [facility] levETIRAcet 2019-0 Yes Univer s am 500 mg 4-06 ity of tablet 00:00: [place] 00 [facility] levETIRAcet 2019-0 2020- No Unive rs am 500 mg 4-06 08-14 ity of tablet 00:00: 00:00 [place] 00 :00 Medical Branch levETIRAcet 2019-0 2020- No Unive rs am 500 mg 09-01 ity of tablet 00:00: 00:00 [place] 00 :00 Medical Branch gabapentin 2019-0 Yes [id number] 800mg Take 1 Univers 800 mg 4-05 tablet by ity of tablet 00:00: mouth 3 (three) Medical times Branch daily. metFORMIN 2019-0 Yes 1000mg Take 2 Univ ers 500 mg 4-05 tablets by ity of tablet 00:00: mouth (two) Medical times Branch daily with meals. You can do two pills in the morning and one in the evening. gabapentin 2019-0 Yes [id number] 800mg Take 1 [facility] 800 mg 4-05 tablet by ity of tablet 00:00: mouth (three) Medical times Branch daily. metFORMIN 2019-0 Yes 1000mg Take 2 Univ ers 500 mg 4-05 tablets by ity of tablet 00:00: mouth (two) Medical times Branch daily with meals. You can do two pills in the morning and one in the evening. gabapentin 2019-0 Yes [id number] 800mg Take 1 Univers 800 mg 4-05 tablet by ity of tablet 00:00: mouth (three) Medical times Branch daily. metFORMIN 2019-0 Yes 1000mg Take 2 Univ ers 500 mg 4-05 tablets by ity of tablet 00:00: mouth (two) Medical times Branch daily with meals. You can do two pills in the morning and one in the evening. gabapentin 2019-0 Yes [id number] 800mg Take 1 Univers 800 mg 4-05 [...] one in the evening. gabapentin 2019-0 Yes [id number] 800mg Take 1 Univers 800 mg 4-05 tablet by ity of tablet 00:00: mouth 3 00 (three) Medical times Branch daily. metFORMIN [...] injection breakfast and dinner. gabapentin 2019-0 Yes [id number] 800mg Take 1 [facility] 800 mg 4-05 [...] injection breakfast and dinner. gabapentin 2019-0 Yes [id number] 800mg Take 1 Univers 800 mg 4-05 [...] injection breakfast and dinner. gabapentin 2019-0 Yes [id number] 800mg Take 1 [facility] 800 mg 4-05 [...] injection breakfast and dinner. gabapentin 2019-0 Yes [id number] 800mg Take 1 Univers 800 mg 4-05 [...] injection breakfast and dinner. gabapentin 2019-0 Yes [id number] 800mg Take 1 [facility] 800 mg 4-05 [...] injection breakfast and dinner. gabapentin 2019-0 Yes [id number] 800mg Take 1 [facility] 800 mg 4-05 [...] injection breakfast and dinner. gabapentin 2019-0 Yes [id number] 800mg Take 1 [facility] 800 mg 4-05 [...] injection breakfast and dinner. gabapentin 2019-0 Yes [id number] 800mg Take 1 [facility] 800 mg 4-05 tablet by ity of tablet 00:00: mouth (three) Medical times Branch daily. metFORMIN 2019-0 Yes 1000mg Take 2 Univ ers 500 mg 4-05 tablets by ity of tablet 00:00: mouth (two) Medical times Branch daily with meals. You can do two pills in the morning and one in the evening. gabapentin 2019-0 Yes [id number] 800mg Take 1 [facility] 800 mg 4-05 tablet by ity of tablet 00:00: mouth (three) Medical times Branch daily. metFORMIN 2019-0 Yes 1000mg Take 2 Univ ers 500 mg 4-05 tablets by ity of tablet 00:00: mouth (two) Medical times Branch daily with meals. You can do two pills in the morning and one in the evening. gabapentin 2019-0 Yes [id number] 800mg Take 1 [facility] 800 mg 4-05 tablet by ity of tablet 00:00: mouth (three) Medical times Branch daily. metFORMIN 2019-0 Yes 1000mg Take 2 Univ ers 500 mg 4-05 tablets by ity of tablet 00:00: mouth (two) Medical times Branch daily with meals. You can do two pills in the morning and one in the evening. gabapentin 2019-0 Yes [id number] 800mg Take 1 Univers 800 mg 4-05 tablet by ity of tablet 00:00: mouth 3 (three) Medical times Branch daily. metFORMIN 2019-0 Yes 1000mg Take 2 Univ ers 500 mg 4-05 tablets by ity of tablet 00:00: mouth (two) Medical times Branch daily with meals. You can do two pills in the morning and one in the evening. gabapentin 2019-0 Yes [id number] 800mg Take 1 Univers 800 mg 4-05 tablet by ity of tablet 00:00: mouth (three) Medical times Branch daily. metFORMIN 2019-0 Yes 1000mg Take 2 Univ ers 500 mg 4-05 tablets by ity of tablet 00:00: mouth (two) Medical times Branch daily with meals. You can do two pills in the morning and one in the evening. gabapentin 2019-0 Yes [id number] 800mg Take 1 Univers 800 mg 4-05 tablet by ity of tablet 00:00: mouth (three) Medical times Branch daily. metFORMIN 2019-0 Yes 1000mg Take 2 Univ ers 500 mg 4-05 tablets by ity of tablet 00:00: mouth (two) Medical times Branch daily with meals. You can do two pills in the morning and one in the evening. gabapentin 2019-0 Yes [id number] 800mg Take 1 Univers 800 mg 4-05 tablet by ity of tablet 00:00: mouth (three) Medical times Branch daily. metFORMIN 2019-0 Yes 1000mg Take 2 Univ ers 500 mg 4-05 tablets by ity of tablet 00:00: mouth (two) Medical times Branch daily with meals. You can do two pills in the morning and one in the evening. gabapentin 2019-0 Yes [id number] 800mg Take 1 [facility] 800 mg 4-05 tablet by ity of tablet 00:00: mouth (three) Medical times Branch daily. metFORMIN 2019-0 Yes 1000mg Take 2 Univ ers 500 mg 4-05 tablets by ity of tablet 00:00: mouth (two) Medical times Branch daily with meals. You can do two pills in the morning and one in the evening. gabapentin 2019-0 Yes [id number] 800mg Take 1 [facility] 800 mg 4-05 tablet by ity of tablet 00:00: mouth 3 00 (three) Medical times Branch daily. metFORMIN 2019-0 Yes 1000mg Take 2 Univ ers 500 mg 4-05 tablets by ity of tablet 00:00: mouth 2 [place] 00 (two) Medical times Branch daily with meals. You can do two pills in the morning and one in the evening. gabapentin 2019-0 Yes [id number] 800mg Take 1 [facility] 800 mg 4-05 tablet by ity of tablet 00:00: mouth 3 00 (three) Medical times Branch daily. metFORMIN 2019-0 Yes 1000mg Take 2 Univ ers 500 mg 4-05 tablets by ity of tablet 00:00: mouth 2 (two) Medical times Branch daily with meals. You can do two pills in the morning and one in the evening. metFORMIN 2018- 2020- No 1000mg Take 2 Uni vers 500 mg 4-05 07-09 tablets by ity of tablet 00:00: 00:00 mouth 2 [place] 00 :00 (two) Medical times Branch daily with meals. You can do two pills in the morning and one in the evening. gabapentin 2019- 2020- No [id number] 800mg Take 1 Univers 800 mg 4-05 05-05 tablet by ity of tablet 00:00: 00:00 mouth 3 [place] 00 :00 (three) Medical times Branch daily. gabapentin 2019- 2020- No [id number] 800mg Take 1 Univers 800 mg 4-05 05-05 tablet by ity of tablet 00:00: 00:00 mouth 3 [place] 00 :00 (three) Medical times Branch daily. gabapentin 2018- 2020- No [id number] 800mg Take 1 Univers 800 mg 4-05 [...] (two) Medical tablet times Branch daily. Insulin 2018-0 Yes [id number] Use as Uni vers Syringe-Nee 3-30 directed ity of dle U-100 00:00: [place] (INSULIN 00 Medical SYRINGE) 1 Branch mL 30 gauge x 5/16 Syrg Insulin 2018-0 Yes [id number] Use as Uni vers Syringe-Nee 3-30 directed ity of dle U-100 00:00: [place] (INSULIN 00 Medical SYRINGE) 1 Branch mL 30 gauge x 5/16 Syrg Insulin 2018-0 Yes [id number] Use as Uni vers Syringe-Nee 3-30 directed ity of dle U-100 00:00: [place] (INSULIN 00 Medical SYRINGE) 1 Branch mL 30 gauge x 5/16 Syrg Insulin 2018-0 Yes [id number] Use as Uni vers Syringe-Nee 3-30 directed ity of dle U-100 00:00: [place] (INSULIN 00 Medical SYRINGE) 1 Branch mL 30 gauge x 5/16 Syrg Insulin 2018-0 Yes [id number] Use as Uni vers Syringe-Nee 3-30 directed ity of dle U-100 00:00: [place] (INSULIN 00 Medical SYRINGE) 1 Branch mL 30 gauge x 5/16 Syrg Insulin 2017-0 Yes [id number] Use as Uni vers Syringe-Nee 3-30 directed ity of dle U-100 00:00: [place] (INSULIN 00 Medical SYRINGE) 1 Branch mL 30 gauge x 5/16 Syrg Insulin 2017-0 Yes [id number] Use as Uni vers Syringe-Nee 3-30 directed ity of dle U-100 00:00: [place] (INSULIN 00 Medical SYRINGE) 1 Branch mL 30 gauge x 5/16 Syrg Insulin 2017-0 Yes [id number] Use as Uni vers Syringe-Nee 3-30 directed ity of dle U-100 00:00: [place] (INSULIN 00 Medical SYRINGE) 1 Branch mL 30 gauge x 5/16 Syrg Insulin 2017-0 Yes [id number] Use as Uni vers Syringe-Nee 3-30 directed ity of dle U-100 00:00: [place] (INSULIN 00 Medical SYRINGE) 1 Branch mL 30 gauge x 5/16 Syrg Insulin 2017-0 Yes [id number] Use as Uni vers Syringe-Nee 3-30 directed ity of dle U-100 00:00: [place] (INSULIN 00 Medical SYRINGE) 1 Branch mL 30 gauge x 5/16 Syrg Insulin 2018-0 Yes [id number] Use as Uni vers Syringe-Nee 3-30 directed ity of dle U-100 00:00: [place] (INSULIN 00 Medical SYRINGE) 1 Branch mL 30 gauge x 5/16 Syrg Insulin 2018-0 Yes [id number] Use as Uni vers Syringe-Nee 3-30 directed ity of dle U-100 00:00: [place] (INSULIN 00 Medical SYRINGE) 1 Branch mL 30 gauge x 5/16 Syrg Insulin 2018-0 Yes [id number] Use as Uni vers Syringe-Nee 3-30 directed ity of dle U-100 00:00: [place] (INSULIN 00 Medical SYRINGE) 1 Branch mL 30 gauge x 5/16 Syrg Insulin 2018-0 Yes [id number] Use as Uni vers Syringe-Nee 3-30 directed ity of dle U-100 00:00: [place] (INSULIN 00 Medical SYRINGE) 1 Branch mL 30 gauge x 5/16 Syrg Insulin 2018-0 Yes [id number] Use as Uni vers Syringe-Nee 3-30 directed ity of dle U-100 00:00: [place] (INSULIN 00 Medical SYRINGE) 1 Branch mL 30 gauge x 5/16 Syrg Insulin 2018-0 Yes [id number] Use as Uni vers Syringe-Nee 3-30 directed ity of dle U-100 00:00: [place] (INSULIN 00 Medical SYRINGE) 1 Branch mL 30 gauge x 5/16 Syrg Insulin 2017-0 Yes [id number] Use as Uni vers Syringe-Nee 3-30 directed ity of dle U-100 00:00: [place] (INSULIN 00 Medical SYRINGE) 1 Branch mL 30 gauge x 5/16 Syrg Insulin 2017-0 Yes [id number] Use as Uni vers Syringe-Nee 3-30 directed ity of dle U-100 00:00: [place] (INSULIN 00 Medical SYRINGE) 1 Branch mL 30 gauge x 5/16 Syrg Insulin 2018-0 Yes [id number] Use as Uni vers Syringe-Nee 3-30 directed ity of dle U-100 00:00: [place] (INSULIN 00 Medical SYRINGE) 1 Branch mL 30 gauge x 5/16 Syrg Insulin 2018-0 Yes [id number] Use as Uni vers Syringe-Nee 3-30 directed ity of dle U-100 00:00: [place] (INSULIN 00 Medical SYRINGE) 1 Branch mL 30 gauge x 5/16 Syrg Insulin 2018-0 Yes [id number] Use as Uni vers Syringe-Nee 3-30 directed ity of dle U-100 00:00: [place] (INSULIN 00 Medical SYRINGE) 1 Branch mL 30 gauge x 5/16 Syrg Insulin 2018-0 Yes [id number] Use as Uni vers Syringe-Nee 3-30 directed ity of dle U-100 00:00: [place] (INSULIN 00 Medical SYRINGE) 1 Branch mL 30 gauge x 5/16 Syrg Insulin 2018-0 Yes [id number] Use as Uni vers Syringe-Nee 3-30 directed ity of dle U-100 00:00: [place] (INSULIN 00 Medical SYRINGE) 1 Branch mL 30 gauge x 5/16 Syrg Insulin 2018-0 Yes [id number] Use as Uni vers Syringe-Nee 3-30 directed ity of dle U-100 00:00: [place] (INSULIN 00 Medical SYRINGE) 1 Branch mL 30 gauge x 5/16 Syrg Insulin 2018-0 Yes [id number] Use as Uni vers Syringe-Nee 3-30 directed ity of dle U-100 00:00: [place] (INSULIN 00 Medical SYRINGE) 1 Branch mL 30 gauge x 5/16 Syrg Insulin 2018-0 Yes [id number] Use as Uni vers Syringe-Nee 3-30 directed ity of dle U-100 00:00: [place] (INSULIN 00 Medical SYRINGE) 1 Branch mL 30 gauge x 5/16 Syrg Insulin 2017-0 Yes [id number] Use as Uni vers Syringe-Nee 3-30 directed ity of dle U-100 00:00: [place] (INSULIN 00 Medical SYRINGE) 1 Branch mL 30 gauge x 5/16 Syrg Insulin 2018-0 Yes [id number] Use as Uni vers Syringe-Nee 3-30 directed ity of dle U-100 00:00: [place] (INSULIN 00 Medical SYRINGE) 1 Branch mL 30 gauge x 5/16 Syrg Insulin 2018-0 Yes [id number] Use as Uni vers Syringe-Nee 3-30 directed ity of dle U-100 00:00: [place] (INSULIN 00 Medical SYRINGE) 1 Branch mL 30 gauge x 5/16 Syrg Insulin 2018-0 Yes [id number] Use as Uni vers Syringe-Nee 3-30 directed ity of dle U-100 00:00: [place] (INSULIN 00 Medical SYRINGE) 1 Branch mL 30 gauge x 5/16 Syrg Insulin 2018-0 Yes [id number] Use as Uni vers Syringe-Nee 3-30 directed ity of dle U-100 00:00: [place] (INSULIN 00 Medical SYRINGE) 1 Branch mL 30 gauge x 5/16 Syrg Insulin 2018-0 Yes [id number] Use as Uni vers Syringe-Nee 3-30 directed ity of dle U-100 00:00: [place] (INSULIN 00 Medical SYRINGE) 1 Branch mL 30 gauge x 5/16 Syrg Insulin 2018-0 Yes [id number] Use as Uni vers Syringe-Nee 3-30 directed ity of dle U-100 00:00: (INSULIN 00 Medical SYRINGE) 1 Branch mL 30 gauge x 5/16 Syrg Insulin Yes [id number] Use as Uni vers Syringe-Nee 3-30 directed ity of dle U-100 00:00: (INSULIN 00 Medical SYRINGE) 1 Branch mL 30 gauge x 5/16 Syrg Insulin 2020- No [id number] Use as Un cali Syringe-Nee 330 01-09 directed ity of dle U-100 00:00: 00:00 (INSULIN 00 :00 Medical SYRINGE) 1 Branch mL 30 gauge x 5/16 Syrg Insulin 2020- No [id number] Use as Un cali Syringe-Nee 330 01-09 directed ity of dle U-100 00:00: 00:00 [place] (INSULIN 00 :00 Medical SYRINGE) 1 Branch mL 30 gauge x 5/16 Syrg Atorvastati Atorvastati Yes [place] [address] [facility] Calcium n Calcium [facility] Lexapro Lexapro Yes [place]ada [address] [facility] Metoprolol Metoprolol Yes Dada [address] [facility] [address] Tartrate Tartrate Horan with food [facility] Ranexa Ranexa Yes [facility] Insulin Insulin Yes [place]ada [address] [facility] [address] Aspart Prot Aspart Prot [facility]an BID [facility] & [facility] Aspirin Aspirin Yes Dada [address] [facility] Gabapentin Gabapentin Yes [place]ada [address] [facility] Furosemide Furosemide Yes [place]ada [address] [facility] Duloxetine Duloxetine Yes Dada [address] [facility] [address] HCl HCl [facility] Xanax Xanax Yes [place] [address] [facility] Clopidogrel Clopidogrel Yes Dada [address] [facility] [address] Bisulfate Bisulfate [facility] Metformin Metformin Yes [...] Dada [address] [facility] [address] [facility] Levetiracet Levetiracet Yes Dada [address] [facility] am [facility] Dana Dana Yes Dada [address] [facility] Hor[facility] [...] Immunizations Ordered Filled Immunization Date Status Comments Sour e Immunization Name Name SARS-COV-2 COVID-19 2021-01-17 Completed Unive rsity of PFIZER VACCINE 00:00:00 [facility] SARS-COV-2 COVID-19 2021-01-17 Completed Unive rsity of PFIZER VACCINE 00:00:00 [facility] SARS-COV-2 COVID-19 2021-01-17 Completed Unive rsity of PFIZER VACCINE 00:00:00 [facility] SARS-COV-2 COVID-19 2021-01-17 Completed Unive rsity of PFIZER VACCINE 00:00:00 [facility] SARS-COV-2 COVID-19 2021-01-17 Completed Unive rsity of PFIZER VACCINE 00:00:00 [facility] SARS-COV-2 COVID-19 2021-01-17 Completed Unive rsity of PFIZER VACCINE 00:00:00 [facility] SARS-COV-2 COVID-19 2021-01-17 Completed Unive rsity of PFIZER VACCINE 00:00:00 [facility] Vital Signs Vital Name Observation Time Observation Value Comments Source Systolic blood 2021-02-12 19:25:00 123 mm[Hg] Univer sity of pressure [place] [facility] Diastolic blood 2021-02-12 19:25:00 80 mm[Hg] Unive rsity of pressure [facility] Heart rate 2021-02-12 19:25:00 87 /min [facility] of [place] [facility] [place] Body temperature 2021-02-12 19:25:00 36.83 [place] Univ ersity of [facility] Respiratory rate 2021-02-12 19:25:00 16 /min Univ ersity of [facility] Body height 2021-02-12 19:25:00 162.6 cm [facility] of [place] [facility] [place] Body weight 2021-02-12 19:25:00 64.864 kg [facility] [place] [facility] BMI 2021-02-12 19:25:00 24.55 kg/m2 [facility]i ty of [facility] Oxygen saturation in 2021-02-12 19:25:00 99 /min University of Arterial blood by [facility] Pulse oximetry Branch Systolic blood 2021-02-12 18:15:00 108 mm[Hg] Univer sity of pressure [facility] Diastolic blood 2021-02-12 18:15:00 73 mm[Hg] Unive rsity of pressure [facility] Heart rate 2021-02-12 18:15:00 59 /min [facility]i ty of [place] [facility] Respiratory rate 2021-02-12 18:15:00 18 /min Univ ersity of [facility] Body height 2021-02-12 18:15:00 162.6 cm [facility] [place] [facility] Body weight 2021-02-12 18:15:00 64.864 kg [facility]i ty of [place] [facility] BMI 2021-02-12 18:15:00 24.55 kg/m2 [facility] [place] [facility] Systolic blood 2021-01-17 17:22:00 129 mm[Hg] Univer sity of pressure [place] [facility] Diastolic blood 2021-01-17 17:22:00 83 mm[Hg] Unive rsity of pressure [place] [facility] Heart rate 2021-01-17 17:22:00 85 /min [facility]i ty of [facility] Body temperature 2021-01-17 17:22:00 36.06 [place] Univ ersity of [place] [facility] Respiratory rate 2021-01-17 17:22:00 16 /min Univ ersity of [place] [facility] Oxygen saturation in 2021-01-17 17:22:00 95 /min University of Arterial blood by [facility] Pulse oximetry Branch Body height 2021-01-15 21:03:00 162.6 cm Universi ty of [place] [facility] Body weight 2021-01-15 21:03:00 62.46 kg Universi ty of [place] [facility] BMI 2021-01-15 21:03:00 23.64 kg/m2 [facility] of [place] [facility] Systolic blood 2021-01-15 19:31:00 109 mm[Hg] Univer sity of pressure [place] [facility] Diastolic blood 2021-01-15 19:31:00 71 mm[Hg] Unive rsity of pressure [place] [facility] Heart rate 2021-01-15 19:31:00 88 /min [facility] [place] [facility] Respiratory rate 2021-01-15 19:31:00 19 /min Univ ersity of [place] [facility] Body height 2021-01-15 19:31:00 162.6 cm [facility] [place] [facility] Body weight 2021-01-15 19:31:00 62.143 kg [facility] [place] [facility] BMI 2021-01-15 19:31:00 23.52 kg/m2 [facility] of [place] [facility] Oxygen saturation in 2021-01-15 19:31:00 93 /min University of Arterial blood by [facility] Pulse oximetry Branch Systolic blood 2021-01-01 16:37:00 118 mm[Hg] Univer sity of pressure [place] [facility] Diastolic blood 2021-01-01 16:37:00 77 mm[Hg] Unive rsity of pressure [place] [facility] Heart rate 2021-01-01 16:37:00 102 /min [facility] [place] [facility] Body weight 2021-01-01 16:37:00 61.689 kg [facility] [place] [facility] BMI 2021-01-01 16:37:00 23.34 kg/m2 [facility] ty of [place] [facility] Oxygen saturation in 2021-01-01 16:37:00 100 /min University of Arterial blood by [facility] Pulse oximetry Branch Systolic blood 2020-12-01 15:53:00 123 mm[Hg] Univer sity of pressure [place] [facility] Diastolic blood 2020-12-01 15:53:00 69 mm[Hg] Unive rsity of pressure [place] [facility] Heart rate 2020-12-01 15:53:00 90 /min [facility]i [facility] [place] [facility] Body temperature 2020-12-01 15:53:00 36.22 [place] Univ ers[facility] of [place] [facility] Respiratory rate 2020-12-01 15:53:00 16 /min Univ ersity of [place] [facility] Oxygen saturation in 2020-12-01 15:53:00 97 /min University of Arterial blood by [facility] Pulse oximetry Branch Body height 2020-11-30 14:35:00 162.6 cm [facility] [place] [facility] Body weight 2020-11-30 14:35:00 64.411 kg [facility] [place] [facility] BMI 2020-11-30 14:35:00 24.37 kg/m2 [facility] [place] [facility] Systolic blood 2020-11-13 20:00:00 115 mm[Hg] Univer sity of pressure [place] [facility] Diastolic blood 2020-11-13 20:00:00 77 mm[Hg] Unive rsity of pressure [place] [facility] Heart rate 2020-11-13 20:00:00 82 /min [facility]i [facility] [place] [facility] Respiratory rate 2020-11-13 20:00:00 16 /min Univ ersity of [place] [facility] Body height 2020-11-13 20:00:00 162.6 cm [facility] [place] [facility] Body weight 2020-11-13 20:00:00 64.728 kg [facility] [place] [facility] BMI 2020-11-13 20:00:00 24.49 kg/m2 [facility] [place] [facility] Oxygen saturation in 2020-11-13 20:00:00 94 /min University of Arterial blood by [facility] Pulse oximetry Branch Systolic blood 2020-10-07 19:37:00 118 mm[Hg] Univer sity of pressure [place] [facility] Diastolic blood 2020-10-07 19:37:00 80 mm[Hg] Unive rsity of pressure [place] [facility] Heart rate 2020-10-07 19:37:00 95 /min [facility] [place] [facility] Body weight 2020-10-07 19:37:00 59.875 kg [facility] [place] [facility] BMI 2020-10-07 19:37:00 22.65 kg/m2 [facility] ty of [facility] Oxygen saturation in 2020-10-07 19:37:00 97 /min University Arterial blood by [facility] Pulse oximetry Branch Heart rate 2020-10-01 20:20:00 60 /min [facility] [place] [facility] Systolic blood 2020-10-01 20:20:00 120 mm[Hg] Univer sity of pressure [place] [facility] Diastolic blood 2020-10-01 20:20:00 80 mm[Hg] Unive rsity of pressure [place] [facility] Heart rate 2020-10-01 20:20:00 60 /min [facility] [place] [facility] Systolic blood 2020-10-01 20:20:00 120 mm[Hg] Univer sity of pressure [place] [facility] Diastolic blood 2020-10-01 20:20:00 80 mm[Hg] Unive rsity of pressure [place] [facility] Heart rate 2020-10-01 20:20:00 60 /min [facility] [place] [facility] Systolic blood 2020-10-01 20:20:00 120 mm[Hg] Univer sity of pressure [place] [facility] Diastolic blood 2020-10-01 20:20:00 80 mm[Hg] Unive rsity of pressure [place] [facility] Heart rate 2020-10-01 20:20:00 60 /min [facility] [place] [facility] Systolic blood 2020-10-01 20:20:00 120 mm[Hg] Univer sity of pressure [place] [facility] Diastolic blood 2020-10-01 20:20:00 80 mm[Hg] Unive rsity of pressure [place] [facility] Heart rate 2020-10-01 20:20:00 60 /min [facility] [place] [facility] Systolic blood 2020-10-01 20:20:00 120 mm[Hg] Univer sity of pressure [place] [facility] Diastolic blood 2020-10-01 20:20:00 80 mm[Hg] Unive rsity of pressure [place] [facility] Heart rate 2020-10-01 20:20:00 60 /min [facility] [place] [facility] Systolic blood 2020-10-01 20:20:00 120 mm[Hg] Univer sity of pressure [place] [facility] Diastolic blood 2020-10-01 20:20:00 80 mm[Hg] Unive rsity of pressure [place] [facility] Systolic blood 2020-09-07 20:47:00 104 mm[Hg] Univer sity of pressure [place] [facility] Diastolic blood 2020-09-07 20:47:00 62 mm[Hg] Unive rsity of pressure [place] [facility] Heart rate 2020-09-07 20:47:00 88 /min [facility] [place] [facility] Body temperature 2020-09-07 20:47:00 36.17 [place] [facility] of [facility] Respiratory rate 2020-09-07 20:47:00 18 /min [facility] ersity of [facility] Oxygen saturation in 2020-09-07 20:47:00 99 /min [facility] of Arterial blood by [facility] Pulse oximetry Branch Body height 2020-09-05 07:40:00 162.6 cm [facility] [place] [facility] [place] Body weight 2020-09-05 07:40:00 60.737 kg [facility] [place] [facility] BMI 2020-09-05 07:40:00 22.97 kg/m2 [facility] [place] [facility] Systolic blood 2020-09-04 21:15:00 130 mm[Hg] Univer sity of pressure [place] [facility] Diastolic blood 2020-09-04 21:15:00 83 mm[Hg] Unive rsity of [facility] Heart rate 2020-09-04 21:15:00 85 /min [facility] Respiratory rate 2020-09-04 21:15:00 19 /min [facility] Body height 2020-09-04 21:15:00 162.6 cm [facility] Body weight 2020-09-04 21:15:00 65.318 kg [facility] BMI 2020-09-04 21:15:00 24.72 kg/m2 [facility] Systolic blood 2020-05-08 19:29:00 128 mm[Hg] Univer sity of [facility] Diastolic blood 2020-05-08 19:29:00 80 mm[Hg] Unive rsity of [facility] Heart rate 2020-05-08 19:29:00 82 /min [facility] Body temperature 2020-05-08 19:29:00 36.39 Lucero [facility] Body height 2020-05-08 19:29:00 162.6 cm [facility] Body weight 2020-05-08 19:29:00 68.04 kg [facility] BMI 2020-05-08 19:29:00 25.75 kg/m2 [facility] Systolic blood 2020-04-03 19:48:00 104 mm[Hg] Univer sity of [facility] Diastolic blood 2020-04-03 19:48:00 66 mm[Hg] Unive rsity of [facility] Heart rate 2020-04-03 19:48:00 81 /min [facility] Body temperature 2020-04-03 19:48:00 36.72 Lucero [facility] Respiratory rate 2020-04-03 19:48:00 18 /min [facility] Body height 2020-04-03 19:48:00 162.6 cm [facility] Body weight 2020-04-03 19:48:00 69.4 kg [facility] BMI 2020-04-03 19:48:00 26.26 kg/m2 [facility] Systolic blood 2020-01-10 21:55:00 126 mm[Hg] Univer sity of [facility] Diastolic blood 2020-01-10 21:55:00 84 mm[Hg] Unive rsity of [facility] Heart rate 2020-01-10 21:55:00 93 /min [facility] Respiratory rate 2020-01-10 21:55:00 16 /min [facility] Body height 2020-01-10 21:55:00 162.6 cm [facility] Body weight 2020-01-10 21:55:00 72.303 kg [facility] BMI 2020-01-10 21:55:00 27.36 kg/m2 [facility] Systolic blood 2019-10-11 20:16:00 124 mm[Hg] Univer sity of [facility] Diastolic blood 2019-10-11 20:16:00 77 mm[Hg] Unive rsity of [facility] Heart rate 2019-10-11 20:16:00 92 /min [facility] Body temperature 2019-10-11 20:16:00 36.89 Lucero [facility] Respiratory rate 2019-10-11 20:16:00 18 /min Univ ers[facility] Body height 2019-10-11 20:16:00 162.6 cm [facility] Body weight 2019-10-11 20:16:00 80.74 kg [facility] BMI 2019-10-11 20:16:00 30.55 kg/m2 [facility] Heart rate 2019-08-16 16:31:00 90 /min [facility] Respiratory rate 2019-08-16 16:31:00 18 /min Univ ersity of [facility] Oxygen saturation in 2019-08-16 16:31:00 97 /min University of Arterial blood by [facility] Pulse oximetry Branch Systolic blood 2019-08-16 16:17:00 110 mm[Hg] Univer sity of [facility] Diastolic blood 2019-08-16 16:17:00 58 mm[Hg] Unive rsity of [facility] Body temperature 2019-08-16 16:17:00 36 Lucero [facility] Body weight 2019-08-16 08:21:00 79.833 kg [facility] BMI 2019-08-16 08:21:00 30.21 kg/m2 [facility] Body height 2019-08-15 13:32:00 162.6 cm [facility] Systolic blood 2019-08-05 16:11:00 145 mm[Hg] Univer sity of [facility] Diastolic blood 2019-08-05 16:11:00 88 mm[Hg] Unive rsity of pressure [facility] Heart rate 2019-08-05 16:11:00 92 /min [facility] Respiratory rate 2019-08-05 16:11:00 19 /min Univ ersity of [facility] Body height 2019-08-05 16:11:00 162.6 cm [facility] Body weight 2019-08-05 16:11:00 80.513 kg Universi ty [facility] BMI 2019-08-05 16:11:00 30.47 kg/m2 Universi ty [facility] Oxygen saturation in 2019-08-05 16:11:00 99 /min University of Arterial blood by [facility] Pulse oximetry Branch Systolic blood 2019-02-04 15:08:00 117 mm[Hg] Univer sity of pressure [facility] Diastolic blood 2019-02-04 15:08:00 83 mm[Hg] Unive rsity of pressure [facility] Heart rate 2019-02-04 15:08:00 80 /min Universi ty of [facility] Respiratory rate 2019-02-04 15:08:00 20 /min [facility] Body height 2019-02-04 15:08:00 162.6 cm Universi [facility] Oxygen saturation in 2019-02-04 15:08:00 99 /min University of Arterial blood by [facility] Pulse oximetry Branch Systolic blood 2019-01-04 19:51:00 124 mm[Hg] Univer sity of pressure [facility] Diastolic blood 2019-01-04 19:51:00 83 mm[Hg] Unive rsity of pressure [facility] Heart rate 2019-01-04 19:51:00 79 /min Universi ty [facility] Respiratory rate 2019-01-04 19:51:00 16 /min [facility] Body height 2019-01-04 19:51:00 162.6 cm [facility] Body weight 2019-01-04 19:51:00 76.204 kg [facility] BMI 2019-01-04 19:51:00 28.84 kg/m2 [facility] Procedures Procedure Date / Time Performing Clinician Source Performed EXTERNAL PROVIDER RECORDS 2021-05-13 06:01:00 Doctor Unassigned, [facility] [place] [facility] POCT GLUCOSE (AUTOMATED) 2021-02-12 21:28:[address] [facility] BASIC METABOLIC PANEL (NA, 2021-02-12 20:36:00 Fabby Nieves [facility] K, CL, CO2, GLUCOSE, BUN, Medica l Branch CREATININE, CA) CBC WITH DIFF 2021-02-12 20:36:00 Fabby Nieves [facility] URINALYSIS 2021-02-12 20:36:00 Fabby Nieves [facility] POCT GLUCOSE (AUTOMATED) 2021-02-12 19:33:00 Doctor Unassigned, [facility] [place] [facility] CONSENT/REFUSAL FOR 2021-02-12 19:10:35 Doctor Unassigned, [facility] DIAGNOSIS AND TREATMENT [place] [facility] POCT GLUCOSE (AUTOMATED) 2021-01-17 17:24:00 Celso Duran [facility] POCT GLUCOSE (AUTOMATED) 2021-01-17 12:38:00 Celso Duran [facility] BASIC METABOLIC PANEL (NA, 2021-01-17 09:06:00 Priyanka Haney [facility] K, CL, CO2, GLUCOSE, BUN, Medica l Branch CREATININE, CA) CBC WITH DIFF 2021-01-17 09:06:00 Priyanka Haney [facility] POCT GLUCOSE (AUTOMATED) 2021-01-16 21:11:00 Celso Duran [facility] POCT GLUCOSE (AUTOMATED) 2021-01-16 16:41:00 Celso Duran [facility] POCT GLUCOSE (AUTOMATED) 2021-01-16 12:48:00 Celso Duran [facility] CBC WITH DIFF 2021-01-16 08:25:00 Priyanka Haney [facility] POCT GLUCOSE (AUTOMATED) 2021-01-16 08:24:00 Celso Duran [facility] MAGNESIUM 2021-01-16 08:17:00 Priyanka Haney [facility] BASIC METABOLIC PANEL (NA, 2021-01-16 08:17:00 Priyanka Haney [facility] K, CL, CO2, GLUCOSE, BUN, Medica l Branch CREATININE, CA) LIPID PANEL ([id number])(TOTAL 2021-01-16 08:17:00 Priyanka Haney [facility] CHOLESTEROL, Medical Branch TRIGLYCERIDES, HDL) LOW-DENSITY LIPOPROTEIN, 2021-01-16 08:17:00 Priyanka Haney [facility] DIRECT [facility] POCT GLUCOSE (AUTOMATED) 2021-01-16 03:51:00 Celso Duran [facility] URINE CULTURE 2021-01-16 01:56:00 Priyanka Haney [facility] POCT GLUCOSE (AUTOMATED) 2021-01-16 01:06:00 Celso Duran [facility] URINALYSIS 2021-01-15 23:47:00 Priyanka Haney [facility] BLOOD CULTURE SCREEN 2021-01-15 23:39:00 Priyanka Haney [facility] PHOSPHORUS 2021-01-15 23:30:00 Lyndon Priyanka Fauzia [facility] TROPONIN I 2021-01-15 23:30:00 Lyndon Priyanka Fauzia [facility] THYROID STIMULATING 2021-01-15 23:30:00 Priyanka Haney [facility] HORMONE [facility] HEPATIC FUNCTION PANEL 2021-01-15 23:30:00 Priyanka Haney [facility] ([id number]) (ALB,T.PRO,BILI Medical Branch T,BU/BC,ALT,AST,ALK PHOS) GLYCOSYLATED HEMOGLOBIN 2021-01-15 23:30:00 Priyanka Haney [facility] (A1C) [facility] BLOOD CULTURE SCREEN 2021-01-15 23:27:00 Priyanka Haney [facility] POCT GLUCOSE (AUTOMATED) 2021-01-15 22:30:00 Celso Duran [facility] COVID-19 (ID NOW RAPID 2021-01-15 20:44:00 Priyanka Haney [facility] TESTING) Medical Branch LAB ONLY COVID 2021-01-15 20:44:00 [facility] INTERPRETATION [facility] NOTICE OF PRIVACY 2021-01-15 20:25:44 Doctor Unassigned, [facility] PRACTICES [place] [facility] CONSENT/REFUSAL FOR 2021-01-15 20:25:23 Doctor Unassigned, [facility] DIAGNOSIS AND TREATMENT [place] [facility] ASSIGNMENT OF BENEFITS 2021-01-15 20:24:58 Doctor Unassigned, [facility] [place] [facility] POCT HEMOGLOBIN A1C TEST 2021-01-01 16:39:00 [facility] POCT GLUCOSE (AUTOMATED) 2020-12-01 17:39:00 [facility] 2020-12-01 10:29:00 Vish [facility] BASIC METABOLIC PANEL (NA, 2020-12-01 10:29:00 Anatoly Wahl [facility] K, CL, CO2, GLUCOSE, BUN, Medica l Branch CREATININE, CA) CBC WITH DIFF 2020-12-01 10:29:00 Vish [facility] POCT GLUCOSE (AUTOMATED) 2020-12-01 02:29[facility]00 [facility] THRMPLAS 2020-12-01 00:50:[address] [facility] POCT GLUCOSE (AUTOMATED) 2020-11-30 23:07:00 [facility] PO[facility] ACT LOW RANGE 2020-11-30 22:17:00 Gregory [facility] POCT ACT LOW RANGE 2020-11-30 21:55:00 Gregory [facility] BASIC METABOLIC PANEL (NA, 2020-11-30 14:26:00 Lily Jenkins [facility] K, CL, CO2, GLUCOSE, BUN, Medica l Branch CREATININE, CA) COVID-19 (ID NOW RAPID 2020-11-30 13:21:00 Brown Woodward [facility] TESTING) Medical Branch LAB ONLY COVID 2020-11-30 13:21:00 Brown Woodward [facility] INTERPRETATION [facility] POCT GLUCOSE(AGE >30DAYS) 2020-10-07 19:39:00 Lakshmi Woodard [facility] POCT GLUCOSE (AUTOMATED) 2020-09-07 22:28:00 Jay England [facility] POCT GLUCOSE (AUTOMATED) 2020-09-07 20:47:00 Jay England [facility] POCT GLUCOSE (AUTOMATED) 2020-09-07 20:12:00 Jay England [facility] POCT GLUCOSE (AUTOMATED) 2020-09-07 16:43:00 Jay England [facility] CAROTID DUPLEX BILATERAL - 2020-09-07 15:09:10 Lily Jenkins [facility] BY VASCULAR LAB [facility] POCT GLUCOSE (AUTOMATED) 2020-09-07 12:50:00 Jay England [facility] COMP. METABOLIC PANEL 2020-09-07 09:28:00 [facility] ([id number]) [facility] CBC WITH DIFF 2020-09-07 09:28:00 Jay England [facility] POCT GLUCOSE (AUTOMATED) 2020-09-07 01:42:00 Jay England [facility] CORTISOL STIMULATION 60 2020-09-06 23:08:00 Jay England [facility] CORTISOL STIMULATION 30 2020-09-06 22:36:00 Jay England [facility] CORTISOL STIMULATION 0 MIN 2020-09-06 22:05:00 Jay [facility] POCT GLUCOSE (AUTOMATED) 2020-09-06 21:04:00 Jay England [facility] POCT GLUCOSE (AUTOMATED) 2020-09-06 19:57:00 Jay England [facility] POCT GLUCOSE (AUTOMATED) 2020-09-06 16:40:00 Jay England [facility] POCT GLUCOSE (AUTOMATED) 2020-09-06 12:45:00 [facility] PHOSPHORUS 2020-09-06 11:16:00 Jay England [facility] MAGNESIUM 2020-09-06 11:16:00 Alessandra [facility] CORTISOL AM 2020-09-06 11:16:00 Alessandra [facility] COMP. METABOLIC PANEL 2020-09-06 11:16:00 [facility] ([id number]) Medical Branch CBC WITH DIFF 2020-09-06 11:16:00 Alessandra jonas [facility] N-TERMINAL PRO-BNP 2020-09-06 11:16:00 Alessandra jonas [facility] POCT GLUCOSE (AUTOMATED) 2020-09-06 01:07:00 [facility] TROPONIN I 2020-09-06 00:13:00 Alessandra jonas [facility] SEDIMENTATION RATE 2020-09-06 00:13:00 Jay England [facility] POCT GLUCOSE (AUTOMATED) 2020-09-05 21:44:00 [facility] 2020-09-05 16:54:00 [facility] (AUTOMATED) 2020-09-05 13:47:00 [facility] ABDOMEN PELVIS WO 2020-09-05 11:16:[address] [facility] CONTRAST [facility] CREATINE KINASE 2020-09-05 10:01:00 Alessandra jonas [facility] MAGNESIUM 2020-09-05 10:01:00 Alessandra jonas [facility] VITAMIN B12, LEVEL 2020-09-05 10:01:00 Elyse Aparicio [facility] TROPONIN I 2020-09-05 10:01:00 Alessandra jonas [facility] COMP. METABOLIC PANEL 2020-09-05 10:01:00 [facility] ([id number]) [facility] LIPID PANEL ([id number])(TOTAL 2020-09-05 10:01:00 Jay England [facility] CHOLESTEROL, [facility] TRIGLYCERIDES, HDL) CBC WITH DIFF 2020-09-05 10:01:00 Alessandra [facility] GLYCOSYLATED HEMOGLOBIN 2020-09-05 10:01:00 Alessandra [facility] (A1C) [facility] PROTHROMBIN TIME / INR 2020-09-05 10:01:00 Alessandra jonas [facility] N-TERMINAL PRO-BNP 2020-09-05 10:01:00 Alessandra jonas [facility] VITAMIN D, 25-OH 2020-09-05 10:01:[address] [facility] PROCALCITONIN 2020-09-05 10:01:00 Alessandra [facility] URINE CULTURE 2020-09-05 05:12:[address] [facility] COVID-19 (ID NOW RAPID 2020-09-05 05:12:00 Anastasia Giraldo [facility] TESTING) [facility] POCT GLUCOSE (AUTOMATED) 2020-09-05 04:24:00 [facility] ACUTE CARE VENOUS BLOOD 2020-09-05 02:29:00 [facility] PHOSPHORUS 2020-09-05 02:22:00 Alessandra jonas [facility] LIPASE 2020-09-05 02:22:[address] [facility] MAGNESIUM 2020-09-05 02:22:00 Alessandra jonas [facility] TROPONIN I 2020-09-05 02:22:[address] [facility] THYROID STIMULATING 2020-09-05 02:22:00 [facility] HORMONE [facility] COMP. METABOLIC PANEL 2020-09-05 02:22:00 Anastasia Giraldo [facility] ([id number]) [facility] CBC WITH DIFF 2020-09-05 02:22:[address] [facility] URINALYSIS 2020-09-05 02:22:[address] [facility] N-TERMINAL PRO-BNP 2020-09-05 02:22:00 Anastasia Giraldo [facility] POCT GLUCOSE (AUTOMATED) 2020-09-05 01:56:00 Doctor Juan Manuel, [facility] Name [facility] NOTICE OF PRIVACY 2020-09-05 01:52:18 Doctor Juan Manuel, [facility] PRACTICES [facility] CONSENT/REFUSAL FOR 2020-09-05 01:51:48 Doctor Juan Manuel [facility] DIAGNOSIS AND TREATMENT [facility] CONSENT/REFUSAL FOR 2020-09-04 22:21:52 Doctor Juan Manuel, [facility] DIAGNOSIS AND TREATMENT [facility] POCT HEMOGLOBIN A1C TEST 2020-09-04 00:00:00 Anatoly [facility]legas [facility] EXTERNAL PROVIDER RECORDS 2020-08-03 06:01:00 Doctor Juan Manuel, [facility] XR LUMBAR SPINE 4 VW 2020-05-08 21:19:59 Rashad Costa [facility] XR HIPS 2 VW LEFT 2020-05-08 21:19:59 Rashad Costa [facility] ASSIGNMENT OF BENEFITS 2020-05-08 20:39:58 Doctor Juan Manuel, [facility] URINE CULTURE 2020-04-03 20:18:00 Adum, Sisi Montero [facility] GC & CHLAMYDIA AMPLIFIED 2020-04-03 20:18:00 Adum, Sisi Montero [facility] GALV ONLY - VAGINAL 2020-04-03 20:18:00 Adum, Sisi [facility] PATHOGENS BY NUCLEIC ACID Medica [facility] TESTING TRICHOMONAS AMPLIFIED 2020-04-03 20:18:00 Adum, Sisi Montero [facility] POCT URINALYSIS W/O 2020-04-03 00:00:00 Adum, Sisi [facility] SPECIFIC GRAVITY [facility] POCT HEMOGLOBIN A1C TEST 2020-01-10 00:00:00 Anatoly Villegas [facility] HOSPITAL ADMISSION MISC - 2019-12-10 05:01:00 Doctor Juan Manuel, [facility] MEDICARE PATIENTS RIGHTS [facility] IMPORTANT MESSAGE BI SCREENING MAMMOGRAM 2019-11-01 17:35:15 Ernst Weeks [facility] BILATERAL Medical Branch CONSENT/REFUSAL FOR 2019-11-01 16:33:32 Doctor Unassigned, [facility] DIAGNOSIS AND TREATMENT [place] [facility] ASSIGNMENT OF BENEFITS 2019-11-01 16:33:15 Doctor Unassmarcela, Un [facility] [id number] CONSENT 2019-10-11 05:01:00 Doctor [facility] [place] [facility] AGREEMENTS AUTHORIZATIONS 2019-08-30 05:01:00 Doctor Unassigned, [facility] AND IRREVOCABLE [place] [facility] ASSIGNMENTS (FORM 2001) POCT GLUCOSE (AUTOMATED) 2019-08-16 13:02:00 [facility]SE ([facility]OMATED) 2019-08-16 09:53:00 Génesis Romano Uni versity [facility] MAGNESIUM 2019-08-16 09:52:00 Izaiah Miles [facility] BASIC METABOLIC PANEL (NA, 2019-08-16 09:52:00 Izaiah Miles [facility] K, CL, CO2, GLUCOSE, BUN, Medica l Branch CREATININE, CA) CBC WITH DIFFERENTIAL 2019-08-16 09:52:00 Izaiah Miles [facility] POCT GLUCOSE (AUTOMATED) 2019-08-16 07:10:00 Génesis Romano Uni versity [facility] POCT GLUCOSE (AUTOMATED) 2019-08-16 05:02:00 Génesis Romano Uni versity [facility] CT HEAD WO CONTRAST 2019-08-16 00:49:18 Shanta Spring [facility] POCT GLUCOSE (AUTOMATED) 2019-08-15 22:14:00 Génesis Romano Uni versity of [facility] POCT GLUCOSE (AUTOMATED) 2019-08-15 20:40:00 Génesis Romano Uni versity of [facility] ACTIVATED PARTIAL THRMPLAS 2019-08-15 20:35:00 Izaiah Miles [facility] POCT GLUCOSE (AUTOMATED) 2019-08-15 16:53:00 Génesis Romano Uni versity [facility] POCT ACT LOW RANGE 2019-08-15 15:35:00 Génesis Romano [facility] POCT ACT LOW RANGE 2019-08-15 15:14:00 Génesis Romano [facility] POCT ACT LOW RANGE 2019-08-15 14:37:00 Génesis Romano [facility] POCT ACT LOW RANGE 2019-08-15 14:20:00 Génesis Romano [facility] MAGNESIUM 2019-08-15 09:53:00 Izaiah Miles [place] [facility] BASIC METABOLIC PANEL (NA, 2019-08-15 09:53:00 Izaiah Miles [facility] K, CL, CO2, GLUCOSE, BUN, Medica l Branch CREATININE, CA) CBC WITH DIFFERENTIAL 2019-08-15 09:53:00 Izaiah Miles [facility] ACTIVATED PARTIAL THRMPLAS 2019-08-15 09:53:00 Shanta Spring niversyue of [facility] POCT GLUCOSE (AUTOMATED) 2019-08-15 09:47:00 Génesis Romano Uni versity of [facility] POCT GLUCOSE (AUTOMATED) 2019-08-15 06:33:00 Génesis Romano Uni versity of [facility] POCT GLUCOSE (AUTOMATED) 2019-08-15 03:08:00 [facility] BASIC METABOLIC PANEL (NA, 2019-08-15 01:48:00 Izaiah Miles [facility] K, CL, CO2, GLUCOSE, BUN, Medica l Branch CREATININE, CA) ACTIVATED PARTIAL THRMPLAS 2019-08-15 01:48:00 Shanta Springersyue of [facility] POCT GLUCOSE (AUTOMATED) 2019-08-15 01:46:00 Génesis Romano Uni versity of [facility] POCT GLUCOSE (AUTOMATED) 2019-08-14 22:29:00 Bandar Romanomad Uni versity of [facility] POCT GLUCOSE (AUTOMATED) 2019-08-14 20:42:00 Génesis Romano Uni versity of [facility] ACTIVATED PARTIAL THRMPLAS 2019-08-14 19:14:00 Abrol, Robinder U [facility] POCT GLUCOSE (AUTOMATED) 2019-08-14 16:43:00 Génesis Romano [facility] ECHO ROUTINE W/DOPPLER 2019-08-14 14:10:31 Izaiah Miles [facility] POCT GLUCOSE (AUTOMATED) 2019-08-14 13:50:00 Génesis Romano [facility] GALV ONLY - INFLUENZA A B 2019-08-14 13:42:00 [facility] EKG-12 LEAD 2019-08-14 13:11:24 Juan Antonio Capps [facility] ACTIVATED PARTIAL THRMPLAS 2019-08-14 10:04:00 Shanta Spring [facility] MAGNESIUM 2019-08-14 10:03:00 Izaaih Miles [facility] BASIC METABOLIC PANEL (NA, 2019-08-14 10:03:00 Izaiah Miles [facility] K, CL, CO2, GLUCOSE, BUN, Medica l Branch CREATININE, CA) CBC WITH DIFFERENTIAL 2019-08-14 10:03:00 Izaiah Miles [facility] POCT GLUCOSE (AUTOMATED) 2019-08-14 01:18:00 Génesis Romano [facility] POCT GLUCOSE (AUTOMATED) 2019-08-13 23:08:00 Génesis Romano [facility] ACTIVATED PARTIAL THRMPLAS 2019-08-13 22:43:00 Shanta Spring [facility] POCT GLUCOSE (AUTOMATED) 2019-08-13 19:28:00 Génesis Romano [facility] CORONARY ANGIOGRAPHY 2019-08-13 16:40:26 Doctor Unassigned, [facility] [place] [facility] TROPONIN I 2019-08-13 13:14:00 Saw [facility] POCT GLUCOSE (AUTOMATED) 2019-08-13 13:12:00 Génesis Romano [facility] XR CHEST 1 VW 2019-08-13 08:08:[facility] 2019-08-13 05:24:00 Wen Graf [facility] TROPONIN I 2019-08-13 05:24:00 Saw [facility] BASIC METABOLIC PANEL (NA, 2019-08-13 05:24:00 Shanta Spring [facility] K, CL, CO2, GLUCOSE, BUN, Medica l Branch CREATININE, CA) CBC WITH DIFFERENTIAL 2019-08-13 05:24:00 Izaiah Miles [facility] GLYCOSYLATED HEMOGLOBIN 2019-08-13 05:24:00 [facility] PROTHROMBIN TIME / INR 2019-08-13 05:24:00 Shanta Spring [facility] ACTIVATED PARTIAL THRMPLAS 2019-08-13 05:24:00 Shanta Spring [facility] SAGE [facility] N-TERMINAL PRO-BNP 2019-08-13 05:24:00 [facility] 2019-08-13 04:39:22 Génesis Romano [facility] EXTERNAL PROVIDER - ADC 2019-08-05 05:01:00 Doctor Juan Manuel, [facility] CARDIOLOGY [facility] [place] NOTICE OF BILLING 2019-02-04 14:40:05 Doctor Juan Manuel, [facility] PRACTICES FOR MEDICARE [facility] PATIENTS NO SHOW OR MISSED 2019-01-04 19:28:18 Doctor Juan Manuel, [facility] APPOINTMENT POLICY [facility] h ACKNOWLEDGEMENT REFERRAL- REQUEST/RESPONSE 2018-12-20 05:01:00 Doctor Juan Manuel , [facility] Name Medical Branch PATIENT CORRESPONDENCE 2018-12-06 05:01:00 Doctor Juan Manuel, [facility] (LETTERS, USPS [facility] [place] DOCUMENTATION) Plan of Care Planned Activity Planned Date Details Comments Source Future Scheduled 2022 Screening for [facility] Test 00:00:00 malignant neoplasm of Medica l Branch colon (procedure) [code = 106554523] Future Scheduled 2022 Screening for [facility] Test 00:00:00 malignant neoplasm of Medica l Branch colon (procedure) [code = 672623548] Future Scheduled 2021-09-07 Creatinine [facility] Test 00:00:00 measurement Medical Branch (procedure) [code = 48646935] Future Scheduled 2021-09-07 Creatinine [facility] Test 00:00:00 measurement Medical Branch (procedure) [code = 93033674] Future Scheduled 2021-09-05 Calculated low [facility] [place] Test 00:00:00 density lipoprotein Medical Branch cholesterol level (procedure) [code = 261483765] Future Scheduled 2021-09-05 Calculated low [facility] [place] Test 00:00:00 density lipoprotein Medical Branch cholesterol level (procedure) [code = 334592886] Future Scheduled 2021-05-08 Depression screening [facility] [place] Test 00:00:00 (procedure) [code = Medical Branch 519973296] Future Scheduled 2021-05-08 Depression screening [facility] [place] Test 00:00:00 (procedure) [code = Medical Branch 779009715] Future Scheduled 2021-03-07 Hemoglobin A1c [facility] [place] Test 00:00:00 measurement Medical Branch (procedure) [code = 81963016] Future Scheduled 2021-03-07 Hemoglobin A1c [facility] [place] Test 00:00:00 measurement Medical Branch (procedure) [code = 47161151] Future Scheduled 2021-01-27 INFLUENZA VACCINE [facility] [place] Test 00:00:00 (Season Ended) [code Medical Branch = INFLUENZA VACCINE (Season Ended)] Future Scheduled 2021-01-27 INFLUENZA VACCINE [facility] [place] Test 00:00:00 (Season Ended) [code Medical Branch = INFLUENZA VACCINE (Season Ended)] Future Scheduled 2020-10-31 Screening for [facility] Test 00:00:00 malignant neoplasm of Medica l Branch breast (procedure) [code = 198144908] Future Scheduled 2020-10-31 Screening for [facility] Test 00:00:00 malignant neoplasm of Medica l Branch breast (procedure) [code = 240120435] Future Scheduled 2020-09-25 Screening for [facility] Test 00:00:00 malignant neoplasm of Medica l Branch cervix (procedure) [code = 249891254] Future Scheduled 2020-09-25 Screening for [facility] Test 00:00:00 malignant neoplasm of Medica l Branch cervix (procedure) [code = 703360550] Future Scheduled 2020-05-10 Diabetic foot [facility] Test 00:00:00 examination Medical Branch (regime/therapy) [code = 346920639] Future Scheduled 2020-05-10 Diabetic foot [facility] Test 00:00:00 examination Medical Branch (regime/therapy) [code = 156087499] Future Scheduled 2019-09-01 Microalbumin [facility] Test 00:00:00 measurement, urine, Medical Branch quantitative (procedure) [code = 616165500] Future Scheduled 2019-09-01 Microalbumin [facility] Test 00:00:00 measurement, urine, Medical Branch quantitative (procedure) [code = 633664612] Future Scheduled 1991 DTaP,Tdap,and Td [facility] [place] Test 00:00:00 Vaccines (1 - Tdap) Medical Branch [code = DTaP,Tdap,and Td Vaccines (1 - Tdap)] Future Scheduled 1991 DTaP,Tdap,and Td [facility] [place] Test 00:00:00 Vaccines (1 - Tdap) Medical Branch [code = DTaP,Tdap,and Td Vaccines (1 - Tdap)] Future Scheduled 1990 Hepatitis C screening [facility] [place] Test 00:00:00 (procedure) [code = Medical Branch 200284800] Future Scheduled 1990 Hepatitis C screening [facility] [place] Test 00:00:00 (procedure) [code = Medical Branch 077499213] Future Scheduled 1988 SARS-CoV-2 (COVID-19) [facility] [place] Test 00:00:00 Vaccine (1) [code = Medical Branch SARS-CoV-2 (COVID-19) Vaccine (1)] Future Scheduled 1988 SARS-CoV-2 (COVID-19) [facility] [place] Test 00:00:00 Vaccine (1) [code = Medical Branch SARS-CoV-2 (COVID-19) Vaccine (1)] Future Scheduled 1982 Examination of retina [facility] [place] Test 00:00:00 (procedure) [code = Medical Branch 565106066] Future Scheduled 1982 Examination of retina [facility] [place] Test 00:00:00 (procedure) [code = Medical Branch 805843247] Future Scheduled 1978 PNEUMOCOCCAL 0-64 [facility] Test 00:00:00 YEARS COMBINED SERIES Medica l Branch (1 of 1 - PPSV23) [code = PNEUMOCOCCAL 0-64 YEARS COMBINED SERIES (1 of 1 - PPSV23)] Future Scheduled 1978 PNEUMOCOCCAL 0-64 [facility] Test 00:00:00 YEARS COMBINED SERIES Medica l Branch (1 of 1 - PPSV23) [code = PNEUMOCOCCAL 0-64 YEARS COMBINED SERIES (1 of 1 - PPSV23)] Encounters Start End Encounter Admission Attending Care Care Encounter Source Date/Time Date/Time Type Type Clinicians Facility Department ID 2021-03-29 Emergency [facility] [id number] Univers 23:28:[address] [facility] 2021-03-28 Emergency X [facility] [id number] Univers 11:58:[address] [facility] 2021-03-28 Emergency [facility] [id number] Univers 11:58:[address] [facility] 2021-03-26 Emergency [facility] [id number] Univers 12:39:[address] [facility] 2021-07-09 2021-07-09 Outpatient R MARK [facility] [id number] 5Q-20 Univers 13:30:00 13:30:[id number] ity of [facility] 2021-05-15 2021-05-15 [facility] 1.2.840.114 [id number] Univers 00:00:00 00:00:00 Wondiful A HEALTH 350.1.13.10 ity of [place] 4.2.7.2.686 [place]aff[place] as PROFBRENT [phone] [facility] 044 [place] OFFICE BUILDING ONE 2021-05-13 2021-05-13 Orders Doctor VAISHALI 1.2.840.114 [id number] Univers 00:00:00 00:00:00 Only Unassigned, AIDA 350.1.13.10 ity of [place] [facility] 4.2.7.2.686 Raffy as [phone] [address] 2021-02-12 2021-02-12 Emergency [facility] 1.2.840.114 [id number] Univers 14:34:00 17:16:00 Fabby Hawkins 350.1.13.10 [place] [phone] [facility] 084 Branch 2021-02-12 2021-02-12 Office [facility] 1.2.840.114 [id number] Univers 13:04:40 15:13:[address] [facility] 350.1.13.10 it y of [place] 4.2.7.2.686 Raffy as Charly?Blea [phone] [place] dical kney [address] [place] Medical Office [facility] 2021-02-12 2021-02-12 Outpatient [facility] [id number] -20 Univers 13:00:00 13:00:00 ALDA [id number] ity [facility] 2021-02-12 2021-02-12 Outpatient [facility] [id number] Univers 13:00:00 13:00:00 ALDA ity [facility] 2021-01-19 2021-01-19 Transition Matthew Daniel 1.2.840.114 [id number] Univers 00:00:00 00:00:00 of Care Phyllis Mata 350.1.13.10 it [place] of [place] [phone] [facility] 403 Branch 2021-01-15 2021-01-17 [facility] 1.2.840.114 [id number] Univers 15:17:00 13:06:00 Encounter Celso Hawkins 350.1.13.10 [place] of [place] [phone] [facility] 081 [place] 2021-01-15 2021-01-15 Office [facility] 1.2.840.114 [id number] Univers 14:09:25 15:11:21 Visit Lily Hawkins 350.1.13.10 [place] of [place] [phone] [place] sonu nal 059 [facility] 2021-01-15 2021-01-15 Outpatient R [facility] [id number] -20 Univers 14:40:00 14:40:00 LILY [id number] ity o f [facility] 2021-01-15 2021-01-15 Outpatient R [facility] [id number] Univers 14:40:00 14:40:00 [address]ILY [address]y o f [facility] 2021-01-01 2021-01-01 Office [facility] 1.2.924.716 [id number] Univers 11:28:43 12:58:14 Visit Anatoly Hawkins 350.1.13.10 i ty kranthi [place] [phone] [place] dical nal 220 Branch Building 2021-01-01 2021-01-01 Outpatient R [facility] [id number] 5Q-20 Univers 11:30:00 11:30:00 ANATOLY [id number] [facility] 2021-01-01 2021-01-01 Outpatient R [facility] [id number] Univers 11:30:00 11:30:00 ANATOLY [facility] 2020-12-18 2020-12-18 Amy [facility] 1.2.840.114 [id number] Univers 00:00:00 00:00:00 Wondiful A [facility] 350.1.13.10 ity of [place] 4.2.7.2.686 Raffy as Professio [phone] [place] dical nal 044 Branch Office Building One 2020-12-02 2020-12-02 Outpatient R [facility] [id number] -20 Univers 16:00:00 16:00:00 LILY [id number] ity o [facility] 2020-12-02 2020-12-02 Outpatient R [facility] [id number] Univers 16:00:00 16:00:00 LILY ity o [facility] 2020-11-30 2020-12-01 [facility] Lily Jenkins 1.2.840.114 [id number] Univers 17:33:00 15:15:00 Ra Waddell 350.1.1 3.10 ity [facility] 4.2.7.2 .686 [place] Lesia Jc [phone] Medical 089 Branch 2020-12-01 2020-12-01 Outpatient R IGOR, [facility] [id number] Q-20 Univers 14:00:00 14:00:00 WONDIFUL [id number] ity o f [facility] 2020-12-01 2020-12-01 Outpatient R [facility] [id number] Univers 14:00:00 14:00:00 W[address]IF[address] ity o f [facility] 2020-11-30 2020-11-30 Outpatient [facility] [id number] -20 Univers 08:00:00 08:00:00 [id number] ity [facility] 2020-11-30 2020-11-30 Outpatient R [facility] [id number] Univers 08:00:00 08:00:00 ity [facility] 2020-11-30 2020-11-30 Hospital Diana Woodward 1.2.840.114 [id number] Univers 07:45:00 07:59:00 Encounter Brown Bennie Parra 350.1.13.10 ity of [facility] 4.2.7.2.686 [place]aff[place] as [phone] [address] 2020-11-27 2020-11-27 Outpatient Sonya [facility]ASPRE[facility] [id number] 5Q-20 Univers 14:00:00 14:00:00 ANATOLY [id number] ity [facility] 2020-11-27 2020-11-27 Outpatient R [facility] [id number] Univers 14:00:00 14:00:00 ANATOLY ity [facility] 2020-11-25 2020-11-25 Telephone Diana Jenkins 1.2.911.342 [id number] Univers 00:00:00 00:00:00 Lily Parra 350.1.13.10 i ty [facility] 4.2.7.2.686 Raffy as [phone] [address] 2020-11-25 2020-11-25 Telephone Gianfranco [facility] 1.2.485.093 [id number] Univers 00:00:00 00:00:00 Patient [place] 350.1.13.10 i ty of Does Not [place] 4.2.7.2.686 Raffy as Have A Professio [phone] Ky dical uri 843 [facility] 2020-11-16 2020-11-16 Telephone Diana Jenkins 1.2.318.783 [id number] Univers 00:00:00 00:00:00 Lily Phoenix 350.1.13.10 i ty of Hospital 4.2.7.2.686 Raffy as [phone] [address] 2020-11-13 2020-11-13 Office [facility] 1.2.840.114 [id number] Univers 14:46:41 15:21:27 Visit Lily Hawkins 350.1.13.10 [place] [phone] [place] sonu grewal 059 [facility] 2020-11-13 2020-11-13 Outpatient R GREGORY [facility] [id number] Univers 14:00:00 14:00:00 PANCHOMARTITA ity o [facility] 2020-11-13 2020-11-13 Outpatient R IGOR [facility] [id number] Q-20 Univers 13:00:00 13:00:00 WONDIFUL [id number] ity o f [facility] 2020-11-12 2020-11-12 Telephone [facility]UN[facility] 1.2.840.114 [id number] Univers 00:00:00 00:00:00 Wondiful A Health 350.1.13.10 ity of [place] 4.2.7.2.686 Raffy as Professio [phone] Ky dicme uri 044 [facility] One 2020-10-28 2020-10-28 Pre Visit Igor [facility] 1.2.840.114 [id number] Univers 00:00:00 00:00:00 Outreach Wondiful A Health 350.1.13.10 ity of [place] 4.2.7.2.686 Raffy as Professio [phone] Ky dicme uri 044 [place] Office Building One 2020-10-07 2020-10-07 Office Vance, [facility] 1.2.840.114 [id number] Univers 13:57:34 15:30:50 Visit Wentong [place] 350.1.13.10 i ty of [place].2.[place] [phone] [place] dical [facility] 220 [facility] 2020-10-07 2020-10-07 Outpatient R VANCE [facility] [id number] -[id number] Univers 14:00:00 14:00:00 WENTONG [id number] ity [facility] 2020-10-07 2020-10-07 Outpatient R VANCE [facility] [id number] Univers 14:00:00 14:00:00 WENTONG ity [facility] 2020-10-06 2020-10-06 Outpatient R VANCE, [facility] [id number] -20 Univers 14:30:00 14:30:00 [facility] [id number] ity [facility] 2020-10-06 2020-10-06 Outpatient R VANCE [facility] [id number] Univers 14:30:00 14:30:00 WENTONG ity [facility] 2020-10-01 2020-10-01 Office Igor [facility] 1.2.840.114 [id number] 15:08:27 16:09:31 Visit Wondiful A Health 350.1.13.10 [place] 4.2.7.2.[address] Professio [phone] One 2020-10-01 2020-10-01 Office [facility] 1.2.840.114 [id number] Univers 15:08:27 16:09:31 Visit Wondiful A Health 350.1.13.10 ity of [place] 4.2.7.2.686 [place]affy as Professio [phone] [facility] 044 [place] Office [facility] One 2020-10-01 2020-10-01 Outpatient R IGOR [facility] [id number] Univers 15:00:00 15:00:[address] ity o f [facility] 2020-09-26 2020-09-26 Refill Igor [facility] 1.2.840.114 [id number] Univers 00:00:00 00:00:00 Wondiful A Health 350.1.13.10 ity of [place] 4.2.7.2.686 [place]aff[place] as Professio [phone] [address] One 2020-09-24 2020-09-24 [facility] 1.2.840.114 [id number] Univers 00:00:00 00:00:00 Wondiful A Health 350.1.13.10 ity of [place] 4.2.7.2.686 [place]aff[place] as Professio [phone] [facility] nal [address] [place] [address] One 2020-09-11 2020-09-11 [facility] 1.2.840.114 [id number] Univers 00:00:00 00:00:00 Wondiful A Health 350.1.13.10 ity of [place] 4.2.7.2.686 [place] as Professio [phone] [facility] nal [address] [place] [address] One 2020-09-09 2020-09-09 Transition David Gonzalezjoshua 1.2.840.114 [id number] Univers 00:00:00 00:00:00 of Care Garcia Bennie Petersony 350.1.13.10 [place] [phone] [address] 2020-09-04 2020-09-07 [facility] Ronnie Murry [facility] 1.2.8 40.114 [id number] Univers 20:58:00 18:15:00 Encounter Anastasia Giraldo 350.1.13.1 0 ity of [place]lyse Aparicio 4.2.7.2.686 [facility] [phone] [address] 2020-09-04 2020-09-04 Office [facility] 1.2.563.900 [id number] Univers 16:01:54 17:11:05 Visit Anatoly Hawkins 350.1.13.10 i ty of [place].2.[place] [phone] [place] dical nal 220 [facility] 2020-09-04 2020-09-04 Outpatient R [facility] [id number] 5Q-20 Univers 16:00:00 16:00:00 ANATOLY [id number] [facility] 2020-09-04 2020-09-04 Outpatient R [facility] [id number] Univers 16:00:00 16:00:00 ANATOLY [facility] 2020-09-04 2020-09-04 Outpatient R [facility] [id number] Univers 16:00:00 16:00:00 [facility] 2020-09-04 2020-09-04 Orders Doctor VAISHALI 1.2.840.114 [id number] Univers 00:00:00 00:00:00 Only Unassigned, AIDA 350.1.13.10 ity of [place] [facility] 4.2.7.2.686 Raffy as [phone] [address] 2020-08-13 2020-08-13 Patient [facility] 1.2.840.114 [id number] Univers 00:00:00 00:00:00 Outreach [facility] 350.1.13.10 i ty of [facility] 4.2.7.2.[place] [phone] [place] dical [address] [place] 2020-08-04 2020-08-04 Refleticia VillegasUNM [facility] 1.2.245.539 [id number] Univers 00:00:00 00:00:00 Anatoly Hawkins 350.1.13.10 i ty of [place].2.[place] [phone] [place] dical nal 220 [facility] 2020-08-04 2020-08-04 Refleticia CostaUN[facility] 1.2.840.114 [id number] Univers 00:00:00 00:00:00 Wondiful A Health 350.1.13.10 ity of [place] 4.2.7.2.686 Raff[place] as Professio [phone] [facility] [place] Office Building One 2020-08-03 2020-08-03 Orders Doctor VAISHALI 1.2.840.114 [id number] Univers 00:00:00 00:00:00 Only Unassigned, AIDA 350.1.13.10 ity of [place] [facility] 4.2.7.2.686 Raffy as [phone] [address] 2020-07-16 2020-07-16 Outpatient Sonya [facility] [id number] Univers 11:15:00 11:15:[address]y o f [facility] 2020-06-22 2020-06-22 Refleticia CostaUN[facility] 1.2.840.114 [id number] Univers 00:00:00 00:00:00 Wondiful A Health 350.1.13.10 ity of [place] 4.2.7.2.686 [place] as Professio [phone] [address] Office [facility] One 2020-06-19 2020-06-19 Outpatient Sonya [facility] [id number] Q-20 Univers 14:00:00 14:00:00 WONDIFUL [id number] ity o [facility] 2020-06-08 2020-06-08 Amy [facility]UN[facility] 1.2.840.114 [id number] Univers 00:00:00 00:00:00 Wondiful A Health 350.1.13.10 ity of [place] 4.2.7.2.686 [place] Professio [phone] [address] Office [facility] One 2020-06-05 2020-06-05 Amy [facility]UN[facility] 1.2.840.114 [id number] Univers 00:00:00 00:00:00 Wondiful A Health 350.1.13.10 ity of [place] 4.2.7.2.686 [place] as Professio [phone] [address] Office Building One 2020-05-28 2020-05-28 Outpatient Sonya COSTA [facility] [id number] Q-20 Univers 15:00:00 15:00:00 WONDIFUL [id number] ity o [facility] 2020-05-28 2020-05-28 Outpatient R IGOR, [facility] [id number] Univers 15:00:00 15:00:[address] ity o f [facility] 2020-05-19 2020-05-19 [facility] 1.2.840.114 [id number] Univers 00:00:00 00:00:00 Wondiful A Health 350.1.13.10 ity of [place] 4.2.7.2.686 [place] as Professio [phone] [address] Office [facility] 2020-05-14 2020-05-14 [facility] 1.2.840.114 [id number] Univers 00:00:00 00:00:00 Wondiful A Health 350.1.13.10 ity of [place] 4.2.7.2.686 [place] as Professio [phone] [address] 2020-05-13 2020-05-13 [facility] 1.2.840.114 [id number] Univers 00:00:00 00:00:00 Management Wondiful A Health 350.1.13.10 ity of [place] 4.2.7.2.686 [place] as Professio [phone] [address] 2020-05-08 2020-05-08 [facility] 1.2.138.793 [id number] Univers 14:47:36 23:59:00 Encounter Wondiful A [place] 350.1.13.10 ity of [place].2.[place] [phone] [address] 2020-05-08 2020-05-08 Outpatient R MARK [facility] [id number] 5Q-20 Univers 16:30:00 16:30:00 ANATOLY [id number] yue [facility] 2020-05-08 2020-05-08 Outpatient R MARK [facility] [id number] Univers 16:30:00 16:30:00 ANATOLY turner [facility] 2020-05-08 2020-05-08 Office [facility] 1.2.840.114 [id number] Univers 13:10:21 13:58:56 Visit Wondiful A Health 350.1.13.10 ity of [place] 4.2.7.2.686 Raff[place] as Professio [phone] [facility] 044 [facility] 2020-05-08 2020-05-08 Orders Doctor TOM 1.2.840.114 [id number] Univers 00:00:00 00:00:00 Only Unassigned, AIDA 350.1.13.10 ity of [place] [facility] 4.2.7.2.686 Raffy as [phone] [address] 2020-05-01 2020-05-01 Outpatient R IGOR, [facility] [id number] Q-20 Univers 10:30:00 10:30:00 [address] ity o f [facility] 2020-05-01 2020-05-01 Outpatient R [facility] [id number] Univers 10:30:00 10:30:[address]y o f [facility] 2020-04-17 2020-04-17 Telemedici [facility] 1.2.840.114 [id number] Univers 11:00:00 11:30:00 ne Visit Sisi Kylah Hawkins 350.1.13.10 ity [place] 4[place] [phone] [facility] 134 [facility] 2020-04-17 2020-04-17 Outpatient R [facility] [id number] -20 Univers 11:00:00 11:00:00 SISI ity [facility] 2020-04-17 2020-04-17 Outpatient R [facility] [id number] Univers 11:00:00 11:00:[address] [facility] 2020-04-14 2020-04-14 Refleticia CostaUN[facility] 1.2.840.114 [id number] Univers 00:00:00 00:00:00 Wondiful A Health 350.1.13.10 ity of [place] 4.2.7.2.686 Raffy as Professio [phone] [facility] 044 [facility] 2020-04-13 2020-04-13 Amy Villegas [facility] 1.2.376.615 [id number] Univers 00:00:00 00:00:00 Anatoly Hawkins 350.1.13.10 i ty of [place] [phone] [place] dical [facility] 220 [facility] 2020-04-08 2020-04-08 Telephone Adum, [facility] 1.2.526.222 [id number] Univers 00:00:00 00:00:00 Sisi Montero Dustin 350.1.13.10 ity of [place].2.[place] [phone] [place] dical nal 134 [facility] 2020-04-07 2020-04-07 Case Ad, [facility] 1.2.840.114 [id number] Univers 00:00:00 00:00:00 Management Sisi Hawkins [id number] [id number] [phone] [place] dic[address] 2020-04-03 2020-04-03 [facility] [id number] [employer] 13:15:01 14:30:02 Visit Sisi Hawkins [id number] [phone] [place] dic[address] 2020-04-03 2020-04-03 Outpatient R ADUM, [facility] [id number] [employer] 13:30:00 13:30:00 SISI ity [facility] 2020-04-03 2020-04-03 Outpatient R ADUM, [facility] [id number] -[id number] Univers 10:30:00 10:30:00 SISI [id number] ity [facility] 2020-04-03 2020-04-03 Outpatient R ADUM, [facility] [id number] Univers 10:30:00 10:30:00 SSII ity [facility] 2020-04-01 2020-04-01 Telephone Serena Garsia [facility] 1.2.840.114 [id number] Univers 00:00:00 00:00:00 Cam [place] 350.1.13.10 i [place] [phone] [place] son[place]al 134 [facility] 2020-03-20 2020-03-20 Refleticia Costa [facility] 1.2.840.114 [id number] Univers 00:00:00 00:00:00 Wondiful [facility] 350.1.13.10 ity of [place] 4.2.7.2.686 [place] Professio [phone] [place] sonu [place]al 044 [facility] One 2020-03-09 2020-03-09 Refleticia Costa [facility] 1.2.840.114 [id number] Univers 00:00:00 00:00:00 Wondiful [facility] Health 350.1.13.10 ity of [place] 4.2.7.2.686 [place] Professio [phone] [place] sonu [place]al 044 [facility] One 2020-02-17 2020-02-17 Telephone Igor [facility] 1.2.840.114 [id number] Univers 00:00:00 00:00:00 Wondiful [facility] 350.1.13.10 ity of [place] 4.2.7.2.686 [place] Professio [phone] [place] terranceal nal 044 [facility] One 2020-02-17 2020-02-17 Latricia Costa [facility] 1.2.840.114 [id number] Univers 00:00:00 00:00:00 Wondiful A Health 350.1.13.10 ity of [place] 4.2.7.2.686 [place] Professio [phone] [facility] 2020-01-13 2020-01-13 Refleticia Costa [facility] 1.2.840.114 [id number] Univers 00:00:00 00:00:00 Wondiful [facility] Health 350.1.13.10 ity of [place] 4.2.7.2.686 [place] Professio [phone] [place] terranceal nal 044 [facility] 2020-01-11 2020-01-11 Garnett Feeder 1, Adc Lab [facility] 1.2.840.114 [id number] Univers 10:55:34 11:10:34 Visit Anatoly Villegas 350.1.13.10 ity of [place] [phone] [facility] [address] 2020-01-11 2020-01-11 Outpatient R [facility] [id number] -20 Univers 11:00:00 11:00:[id number] [facility] 2020-01-11 2020-01-11 Outpatient R [facility] [id number] Univers 11:00:00 11:00:[address] [facility] 2020-01-10 2020-01-10 [facility] 1.2.057.087 [id number] Univers 16:40:13 17:43:53 Visit Anatoly Hawkins 350.1.13.10 i [place] [phone] [place] dical [place] [address] [place] [address] 2020-01-10 2020-01-10 [facility] [id number] 5Q-20 Univers 16:30:00 16:30:00 ANATOLY [id number] ity [facility] 2020-01-10 2020-01-10 Outpatient R [facility] [id number] Univers 16:30:00 16:30:00 ANATOLY ity [facility] 2019-12-10 2019-12-10 Orders Doctor TOM 1.2.840.114 [id number] Univers 00:00:00 00:00:00 Only Unassigned, AIDA 350.1.13.10 ity of [place] [facility] 4.2.7.2.686 Raffy as [phone] [facility] [address] 2019-12-10 2019-12-10 Telephone [facility] 1.2.840.114 [id number] Univers 00:00:00 00:00:00 Anatoly Hawkins 350.1.13.10 i [place] [phone] [place] dical nal 220 [facility] 2019-12-05 2019-12-05 Refill [facility] 1.2.592.294 [id number] Univers 00:00:00 00:00:00 Anatoly Hawkins 350.1.13.10 i ty of [place] [phone] [place] dical nal [address] 2019-11-06 2019-11-06 Outpatient R [facility] [id number] -20 Univers 15:40:00 15:40:00 LILY ity o f [facility] 2019-11-06 2019-11-06 Outpatient R [facility] [id number] Univers 15:40:00 15:40:00 LILY [address] o f [facility] 2019-11-03 2019-11-03 [facility] 1.2.840.114 [id number] Univers 00:00:00 00:00:00 [facility] 350.1.13.10 ity of [place] 4.2.7.2.686 [place] Professio [phone] [facility] [address] 2019-11-01 2019-11-01 Outpatient R [facility] [id number] Univers 11:35:42 23:59:[address] [facility] 2019-11-01 2019-11-01 [facility] 1.2.840.114 [id number] Univers 11:35:00 23:59:00 Encounter Ernst Hawkins 350.1.13.10 it[place] of [place] [phone] [facility] [address] 2019-11-01 2019-11-01 Outpatient [facility] [id number] 5Q-20 Univers 11:40:00 11:40:[address] [facility] 2019-11-01 2019-11-01 Orders Doctor TOM 1.2.840.114 [id number] Univers 00:00:00 00:00:00 Only Unassigned, AIDA 350.1.13.10 ity of [place] [facility] 4.2.7.2.686 Raffy as [phone] [facility] [address] 2019-10-25 2019-10-25 Outpatient R [facility] [id number] 5Q-20 Univers 00:00:00 00:00:00 ERNST [id number] [facility] 2019-10-11 2019-10-11 Office Kilo [facility] 1.2.014.730 [id number] Univers 14:59:15 16:12:30 Visit Ernst Hawkins 350.1.13.10 i [place] [phone] [place] dical nal 134 [facility] 2019-10-11 2019-10-11 Outpatient R KILO [facility] [id number] 5Q-20 Univers 15:00:00 15:00:00 ERNST [id number] [facility] 2019-10-11 2019-10-11 Outpatient R [facility] [id number] Univers 15:00:00 15:00:00 [facility] 2019-10-11 2019-10-11 Orders Doctor TOM 1.2.840.114 [id number] Univers 00:00:00 00:00:00 Only Unassigned, AIDA 350.1.13.10 [facility] 4.2.7.2.686 [place] as [phone] [address] 2019-10-07 2019-10-07 Outpatient R [facility] [id number] Univers 14:00:00 14:00:00 ERNST [facility] 2019-09-30 2019-09-30 Refill [facility] 1.2.404.409 [id number] Univers 00:00:00 00:00:00 Anatoly Hawkins 350.1.13.10 i ty [place] [phone] [place] dical [place]al 220 [facility] 2019-09-20 2019-09-20 Outpatient Sonya [facility] [id number] Univers 16:30:00 16:30:00 ANATOLY itmargarette [facility] 2019-09-20 2019-09-20 Telemedici [facility] 1.2.840.114 [id number] Univers 09:52:35 10:22:35 ne Visit Anatoly Hawkins 350.1.13.10 ity of [place] [phone] [place] dical nal 220 [facility] 2019-08-30 2019-08-30 Garnett Feeder 2, Adc Lab [facility] 1.2.840.114 [id number] Univers 09:08:00 09:23:00 Visit Lily Jenkins 350.1.13.10 it[place] of [place] [phone] [place] dical [place]al 353 [facility] 2019-08-30 2019-08-30 Outpatient R [facility] [id number] -20 Univers 09:15:00 09:15:[id number] [facility] 2019-08-30 2019-08-30 Outpatient R GREGORY [facility] [id number] Univers 09:15:00 09:15:00 [address]ILY [address] o f [facility] 2019-08-30 2019-08-30 Orders Doctor VAISHALI 1.2.840.114 [id number] Univers 00:00:00 00:00:00 Only Unassigned, AIDA 350.1.13.10 ity of [place] [facility] 4.2.7.2.686 [place]aff[place] as [phone] [address] 2019-08-22 2019-08-22 Outpatient R IGOR [facility] [id number] Q-20 Univers 14:00:00 14:00:00 WONDIFUL [id number] ity o f [facility] 2019-08-22 2019-08-22 Outpatient R IGOR [facility] [id number] Univers 14:00:00 14:00:[address] ity o f [facility] 2019-08-22 2019-08-22 Telemedici [facility] 1..840.114 [id number] Univers 09:19:01 09:49:01 ne Visit Wonmeghaful A Health 350.1.13.10 ity of [place] 4.2.7.2.686 [place] Professio [phone] [place] dical nal [address] 2019-08-22 2019-08-22 Transition Matthew Chávez 1..840.114 [id number] Univers 00:00:00 00:00:00 of Care Jessica Mata 350.1.13.10 it y of [place] [phone] [facility] [address] 2019-08-20 2019-08-20 Transition Matthew Chávez 1.2.840.114 [id number] Univers 00:00:00 00:00:00 of Care Jessica Mata 350.1.13.10 it y of [place].2.[place] [phone] [facility] [address] 2019-08-19 2019-08-19 Telephone [facility] 1.2.840.114 [id number] Univers 00:00:00 00:00:00 Wondiful A Health 350.1.13.10 ity of [place] 4.2.7.2.686 [place] Professio [phone] [place] dical [place]al [address] 2019-08-12 2019-08-16 Inpatient U [facility] [id number] Univers 22:36:00 12:57:[address]PS [address] o f [facility] 2019-08-12 2019-08-16 Hospital Diana Romano 1.2.840.114 [id number] Univers 22:36:00 12:57:00 Encounter Génesis Aida 350.1.13.10 ity of [facility] 4.2.7.2.686 [place]aff[place] [phone] [facility] [address] 2019-08-16 2019-08-16 Outpatient R [facility] [id number] -20 Univers 10:00:00 10:00:[id number] [facility] 2019-08-16 2019-08-16 Outpatient R [facility] [id number] Univers 10:00:00 10:00:[address] [facility] 2019-08-12 2019-08-12 Telephone [facility] 1.2.851.892 [id number] Univers 00:00:00 00:00:00 Lily [place] 350.1.13.10 ity of [place] [phone] [address] 2019-08-09 2019-08-09 Telephone Diana Jenkins 1.2.469.960 [id number] Univers 00:00:00 00:00:00 Qiagerry [place] 350.1.13.10 i ty of Hospital 4.2.7.2.686 [place] as [phone] [address] 2019-08-07 2019-08-07 Telephone Diana Jenkins 1.2.176.149 [id number] Univers 00:00:00 00:00:00 Qiangmartita Aida 350.1.13.10 i ty of Hospital 4.2.7.2.686 [place]aff[place] as [phone] [address] 2019-08-05 2019-08-06 Office [facility] 1.2.840.114 [id number] Univers 10:54:42 21:31:12 Visit Lily Hawkins 350.1.13.10 ity of [place] [phone] [address] 2019-08-05 2019-08-05 Outpatient R [facility] [id number] Univers 11:20:00 11:20:[address] o f [facility] 2019-08-05 2019-08-05 Orders Doctor VAISHALI 1.2.840.114 [id number] Univers 00:00:00 00:00:00 Only Unassigned, AIDA 350.1.13.10 ity of [place] [facility] 4.2.7.2.686 [place]aff[place] as [phone] [address] 2019-02-04 2019-02-04 Office [facility] 1.2.840.114 [id number] Univers 09:40:44 10:41:11 Visit Lily Hawkins 350.1.13.10 ity of [place].2.[place] [phone] [address] 2019-02-04 2019-02-04 Orders Doctor VAISHALI 1.2.840.114 [id number] Univers 00:00:00 00:00:00 Only Unassigned, AIDA 350.1.13.10 ity of [place] [facility]ITAL 4.2.7.2.686 Raffy as [phone] [address] 2019-01-04 2019-01-04 Office Mark MNMINDY 1.2.804.820 [id number] Univers 14:30:15 15:51:35 Visit Anatoly Rodriguez [place] 350.1.13.10 i ty [place] 4[place].2.[place] [phone] [place] dical [facility] 220 [facility] 2019-01-04 2019-01-04 Orders Doctor VAISHALI 1.2.840.114 [id number] Univers 00:00:00 00:00:00 Only Unassigned, AIDA 350.1.13.10 ity of [place] [facility] 4.2.7.2.686 Raffy as [phone] [address] 2018-12-20 2018-12-20 Orders Doctor VAISHALI 1.2.840.114 [id number] Univers 00:00:00 00:00:00 Only Unassigned, AIDA 350.1.13.10 ity of [place] [facility]OSPITAL 4.2.7.2.686 [place]aff[place] as [phone] [address] 2018-12-06 2018-12-06 Orders Doctor VAISHALI 1.2.840.114 [id number] Univers 00:00:00 00:00:00 Only Unassigned, AIDA 350.1.13.10 ity of [place] [facility]OSPITAL 4.2.7.2.686 [place]aff[place] as [phone] [address] 2018-06-27 2018-06-27 [facility] [id number] [facility] [address] 11:57:00 11:57:00 [facility] Medicine Outpati ent Clinics 2018-06-15 2018-06-15 [facility] [id number] 16:24:00 16:24:00 [facility] Medicine Medicine Outpati ent Clinics 2018-06-13 2018-06-13 [facility] [id number] 13:30:00 13:30:00 [facility] Medicine l Medicine Outpati ent Clinics 2017-12-12 2017-12-12 Outpatient Michael Barr [id number] 13:22:00 13:22:00 [facility] 2017-11-20 2017-11-20 Outpatient Michael Barr [id number] 10:30:00 10:30:00 [facility] 2017-11-02 2017-11-02 Outpatient Michael Barr [id number] 15:15:00 15:15:00 [facility] Results Test Description Test Time Test Comments Results Result Comments Source POCT GLUCOSE (AUTOMATED) 2021-02-12 21:30:54 Test Item Value Reference Range Interpretation Comme nts POCT GLU (test code = 6252150427) 441 mg/dL 70-110 H Lab Interpretation (test code = 35212-8) Abnormal [facility] GLUCOSE (AUTOMATED)2021-02-12 21:30:54 Test Item Value Reference Range Interpretation Comments POCT GLU (test code = 5800478198) 441 mg/dL 70-110 H Lab Interpretation (test code = Abnormal 72682-2) [facility] METABOLIC PANEL (NA, K, CL, CO2, GLUCOSE, BUN, CREATININE, CA)2021-02-12 21:22:44 Test Item Value Reference Range Interpretation Comments NA (test code = 128 mmol/L 135-145 L 5510309175) K (test code = 4.3 mmol/L 3.5-5.0 8441388364) CL (test code = 99 mmol/L 98-108 8314503011) CO2 TOTAL (test code = 19 mmol/L 23-31 L 5147679743) AGAP (test code = 2-16 7439872450) BUN (test code = 13 mg/dL 7-23 6356283402) GLUCOSE (test code = 522 mg/dL 70-110 HH 8442155562) CREATININE (test code = 0.62 mg/dL 0.50-1.04 9199929322) CALCIUM (test code = 8.2 mg/dL 8.6-10.6 L 5708009735) eGFR (test code = mL/min/1.73m2 8893324182) NISHA (test code = NISHA) Association of [...] tests). Lab Interpretation Abnormal (test code = 21411-6) [facility] METABOLIC PANEL (NA, K, CL, CO2, GLUCOSE, BUN, CREATININE, CA)2021-02-12 21:22:44 Test Item Value Reference Range Interpretation Comments NA (test code = 128 mmol/L 135-145 L 9514951264) K (test code = 4.3 mmol/L 3.5-5.0 9789050495) CL (test code = 99 mmol/L 98-108 8594316302) CO2 TOTAL (test code = 19 mmol/L 23-31 L 0857700203) AGAP (test code = 2-16 5956451359) BUN (test code = 13 mg/dL 7-23 4995636172) GLUCOSE (test code = 522 mg/dL 70-110 0950259951) CREATININE (test code = 0.62 mg/dL 0.50-1.04 8142320777) CALCIUM (test code = 8.2 mg/dL 8.6-10.6 L 8543115446) eGFR (test code = mL/min/1.73m2 6975883995) NISHA (test code = NISHA) Association of [...] tests). Lab Interpretation Abnormal (test code = 09207-9) [facility] WITH [id number] 20:50:11 Test Item Value Reference Range Interpretation Comments WBC (test code = See_Comment [Automated message] 6690-2) The system [employer] generated this result transmitted ref erence range: 4.30 - 1 1.10 10*3/?L. The re ference range was not u sed to interpret this result as normal/abnor mal. RBC (test code = See_Comment [Automated message] 789-8) The system [employer] generated this result transmitted ref erence range: [...] RDW-SD (test code 40.4 fL 39.0-49.9 = 93951-4) RDW-CV (test code 12.7 % 12.0-15.5 = 788-0) PLT (test code = See_Comment [Automated message] 777-3) The system [employer] generated this result transmitted ref erence range: 166 - 35 8 10*3/?L. The re ference range was not u sed to interpret this result as normal/abnor mal. MPV (test code = 10.3 fL 9.5-12.9 55897-2) NRBC/100 WBC (test See_Comment [Automat ed message] code = 4343523761) The syste m which generated this result transmitted ref erence range: 0.0 - 10 .0 /100 WBCs. The refer ence range was not u sed to interpret this result as normal/abnor mal. NRBC x10^3 (test <0.01 See_Comment [Automated message] code = 8834313998) The syste m which generated this result transmitted ref erence range: 10*3/?L. The reference range was not used to interpr et this result as normal/abnormal . GRAN MAT (NEUT) % 68.0 % (test code = 770-8) IMM GRAN % (test 0.30 % code = 9419755193) LYMPH % (test code 23.0 % = 736-9) MONO % (test code 5.0 % = 5905-5) EOS % (test code = 3.0 % 713-8) BASO % (test code 0.7 % = 706-2) GRAN MAT 6.52 10*3/uL 1.88-7.09 x10^3(ANC) (test code = 0400208759) IMM GRAN x10^3 0.03 10*3/uL 0.00-0.06 (test code = 7260839981) LYMPH x10^3 (test 2.21 10*3/uL 1.32-3.29 code = 731-0) MONO x10^3 (test 0.48 10*3/uL 0.33-0.92 code = 742-7) EOS x10^3 (test 0.29 10*3/uL 0.03-0.39 code = 711-2) BASO x10^3 (test 0.07 10*3/uL 0.01-0.07 code = 704-7) [facility] WITH [id number] 20:50:11 Test Item Value Reference Range Interpretation Comments WBC (test code = See_Comment [Automated message] 7890-2) The system [employer] generated this result transmitted ref erence range: 4.30 - 1 1.10 10*3/?L. The re ference range was not u sed to interpret this result as normal/abnor mal. RBC (test code = See_Comment [Automated message] 589-8) The system [employer] generated this result transmitted ref erence range: [...] RDW-SD (test code 40.4 fL 39.0-49.9 = 52751-1) RDW-CV (test code 12.7 % 12.0-15.5 = 788-0) PLT (test code = See_Comment [Automated message] 777-3) The system whic h generated this result transmitted ref erence range: 166 - 35 8 10*3/?L. The re ference range was not u sed to interpret this result as normal/abnor mal. MPV (test code = 10.3 fL 9.5-12.9 06005-0) NRBC/100 WBC (test See_Comment [Automat ed message] code = 1664509505) The syste m which generated this result transmitted ref erence range: 0.0 - 10 .0 /100 WBCs. The refer ence range was not u sed to interpret this result as normal/abnor mal. NRBC x10^3 (test <0.01 See_Comment [Automated message] code = 4413768600) The syste m which generated this result transmitted ref erence range: 10*3/?L. The reference range was not used to interpr et this result as normal/abnormal . GRAN MAT (NEUT) % 68.0 % (test code = 770-8) IMM GRAN % (test 0.30 % code = 9015780894) LYMPH % (test code 23.0 % = 736-9) MONO % (test code 5.0 % = 5905-5) EOS % (test code = 3.0 % 713-8) BASO % (test code 0.7 % = 706-2) GRAN MAT 6.52 10*3/uL 1.88-7.09 x10^3(ANC) (test code = 8083039374) IMM GRAN x10^3 0.03 10*3/uL 0.00-0.06 (test code = 7930773811) LYMPH x10^3 (test 2.21 10*3/uL 1.32-3.29 code = 731-0) MONO x10^3 (test 0.48 10*3/uL 0.33-0.92 code = 742-7) EOS x10^3 (test 0.29 10*3/uL 0.03-0.39 code = 711-2) BASO x10^3 (test 0.07 10*3/uL 0.01-0.07 code = 704-7) [facility] GLUCOSE (AUTOMATED)2021-02-12 19:42:22 Test Item Value Reference Range Interpretation Comments POCT GLU (test code = 6622570893) 558 mg/dL 70-110 HH Lab Interpretation (test code = Abnormal 31128-7) [facility] GLUCOSE (AUTOMATED)2021-02-12 19:42:22 Test Item Value Reference Range Interpretation Comments POCT GLU (test code = 6841009168) 558 mg/dL 70-110 HH Lab Interpretation (test code = Abnormal 96630-3) [facility] GLUCOSE (AUTOMATED)2021-01-17 18:00:29 Test Item Value Reference Range Interpretation Comments POCT GLU (test code = 4968789048) 327 mg/dL 70-110 H Lab Interpretation (test code = Abnormal 96688-3) [facility] GLUCOSE (AUTOMATED)2021-01-17 13:28:29 Test Item Value Reference Range Interpretation Comments POCT GLU (test code = 1027338026) 374 mg/dL 70-110 H Lab Interpretation (test code = Abnormal 26406-4) [facility] METABOLIC PANEL (NA, K, CL, CO2, GLUCOSE, BUN, CREATININE, CA)2021-01-17 09:28:24 Test Item Value Reference Range Interpretation Comments NA (test code = 132 mmol/L 135-145 L 4696304579) K (test code = 4.5 mmol/L 3.5-5.0 3929163970) CL (test code = 106 mmol/L 98-108 3656517536) CO2 TOTAL (test code = 23 mmol/L 23-31 0587884318) AGAP (test code = 2-16 5352624975) BUN (test code = 19 mg/dL 7-23 0735306730) GLUCOSE (test code = 383 mg/dL 70-110 H 2568157967) CREATININE (test code = 0.71 mg/dL 0.50-1.04 1580506178) CALCIUM (test code = 7.9 mg/dL 8.6-10.6 L 9056426933) eGFR (test code = mL/min/1.73m2 1925833602) NISHA (test code = NISHA) Association of [...] tests). Lab Interpretation Abnormal (test code = 13390-7) [facility] WITH [id number] 09:16:04 Test Item Value Reference Range Interpretation Comments WBC (test code = See_Comment [Automated message] 6690-2) The system [employer] generated this result transmitted ref erence range: 4.30 - 1 1.10 10*3/?L. The re ference range was not u sed to interpret this result as normal/abnor mal. RBC (test code = See_Comment [Automated message] 789-8) The system [employer] generated this result transmitted ref erence range: [...] RDW-SD (test code 39.3 fL 39.0-49.9 = 35476-1) RDW-CV (test code 12.4 % 12.0-15.5 = 788-0) PLT (test code = See_Comment [Automated message] 777-3) The system whic h generated this result transmitted ref erence range: 166 - 35 8 10*3/?L. The re ference range was not u sed to interpret this result as normal/abnor mal. MPV (test code = 11.0 fL 9.5-12.9 75517-5) NRBC/100 WBC (test See_Comment [Automat ed message] code = 4838879408) The syste m which generated this result transmitted ref erence range: 0.0 - 10 .0 /100 WBCs. The refer ence range was not u sed to interpret this result as normal/abnor mal. NRBC x10^3 (test <0.01 See_Comment [Automated message] code = 3213475808) The syste m which generated this result transmitted ref erence range: 10*3/?L. The reference range was not used to interpr et this result as normal/abnormal . GRAN MAT (NEUT) % 52.9 % (test code = 770-8) IMM GRAN % (test 0.40 % code = 6919500500) LYMPH % (test code 35.0 % = 736-9) MONO % (test code 6.7 % = 5905-5) EOS % (test code = 4.0 % 713-8) BASO % (test code 1.0 % = 706-2) GRAN MAT 3.88 10*3/uL 1.88-7.09 x10^3(ANC) (test code = 3909758193) IMM GRAN x10^3 0.03 10*3/uL 0.00-0.06 (test code = 3620473564) LYMPH x10^3 (test 2.56 10*3/uL 1.32-3.29 code = 731-0) MONO x10^3 (test 0.49 10*3/uL 0.33-0.92 code = 742-7) EOS x10^3 (test 0.29 10*3/uL 0.03-0.39 code = 711-2) BASO x10^3 (test 0.07 10*3/uL 0.01-0.07 code = 704-7) [facility] GLUCOSE (AUTOMATED)2021-01-16 22:25:02 Test Item Value Reference Range Interpretation Comments POCT GLU (test code = 8791335057) 301 mg/dL 70-110 H Lab Interpretation (test code = Abnormal 03071-4) [facility] GLUCOSE (AUTOMATED)2021-01-16 21:22:23 Test Item Value Reference Range Interpretation Comments POCT GLU (test code = 0508398677) 228 mg/dL 70-110 H Lab Interpretation (test code = Abnormal 24890-4) [facility], [id number] 19:28:10 Test Item Value Reference Range Interpretation Comments dLDL Chol (test code = 87423-5) 51 mg/dL <130 Lab Interpretation (test code = Normal 97018-0) [facility] GLUCOSE (AUTOMATED)2021-01-16 13:20:02 Test Item Value Reference Range Interpretation Comments POCT GLU (test code = 3590258232) 282 mg/dL 70-110 H Lab Interpretation (test code = Abnormal 21421-5) [facility] (Total Cholesterol, Triglycerides, HDL) - [id number] 10:51:04 Test Item Value Reference Range Interpretation Comments CHOL (test code = 123 mg/dL 120-200 0876039890) HDL (test code = 24 mg/dL >50 L 6471823921) HDLC RATIO (test code = See_Comment H [Au tomated message] [id number]) The system [employer] generated this result transmitted ref erence range: <=4.5. T he reference range was not used to int erpret this result as normal/abnormal . TRIG (test code = 437 mg/dL 30-170 H 6520409799) LDL CHOL (test code = Unable to calculate 59052-1) LDL due to elev ated triglyceride le sweetie greater than 40 0 mg/dL. VLDL (test code = 87 mg/dL 5-60 H 6491008258) Lab Interpretation Abnormal (test code = 56572-1) [facility] Metabolic Panel (NA, K, CL, CO2, GLUCOSE, BUN, CREATININE, CA)2021-01-16 10:50:48 Test Item Value Reference Range Interpretation Comments NA (test code = 134 mmol/L 135-145 L 0452987660) K (test code = 2.7 mmol/L 3.5-5.0 LL 4920712139) CL (test code = 101 mmol/L 98-108 1528914579) CO2 TOTAL (test code = 24 mmol/L 23-31 6961407473) AGAP (test code = 2-16 7985499056) BUN (test code = 15 mg/dL 7-23 1471402530) GLUCOSE (test code = 160 mg/dL 70-110 H 8331104174) CREATININE (test code = 0.69 mg/dL 0.50-1.04 3331975733) CALCIUM (test code = 8.5 mg/dL 8.6-10.6 L 9729177228) eGFR (test code = mL/min/1.73m2 7884113565) NISHA (test code = NISHA) Association of [...] tests). Lab Interpretation Abnormal (test code = 96396-7) [facility] [id number] 10:35:20 Test Item Value Reference Range Interpretation Comments MAGNESIUM (test code = 6747709160) 1.5 mg/dL 1.7-2.4 L Lab Interpretation (test code = Abnormal 61543-0) [facility] with [id number] 10:03:39 Test Item Value Reference Range Interpretation Comments WBC (test code = See_Comment [Automated 8690-2) message] The sy stem which generated this result transmitted reference range : 4.30 - 11.10 10*3/?L. The reference range was not used to interpret this result as normal/abnormal . RBC (test code = See_Comment [Automated 969-8) message] The sy stem which generated this [...] (test code = 37.2 fL 39.0-49.9 L 35619-9) RDW-CV (test code = 12.1 % 12.0-15.5 788-0) PLT (test code = See_Comment [Automated 777-3) message] The sy stem which generated this result transmitted reference range : 166 - 358 10*3/ ?L. The reference r chelsie was not used to interpret this result as normal/abnormal . MPV (test code = 10.9 fL 9.5-12.9 57705-0) NRBC/100 WBC (test See_Comment [Automat ed code = 8578979702) message] The system which generated this result transmitted reference range : 0.0 - 10.0 /100 WBCs. The refer ence range was not u sed to interpret th is result as normal/abnormal . NRBC x10^3 (test code <0.01 See_Comment [Auto mated = 0813877681) message] The s ystem which generated this result transmitted reference range : 10*3/?L. The reference range was not used to interpret this result as normal/abnormal . GRAN MAT (NEUT) % 37.0 % (test code = 770-8) IMM GRAN % (test code 0.30 % = 6048265597) LYMPH % (test code = 47.8 % 736-9) MONO % (test code = 8.6 % 5905-5) EOS % (test code = 5.0 % 713-8) BASO % (test code = 1.3 % 706-2) GRAN MAT x10^3(ANC) 2.37 10*3/uL 1.88-7.09 (test code = 9588545187) IMM GRAN x10^3 (test <0.03 0.00-0.06 code = 4898071365) LYMPH x10^3 (test code 3.06 10*3/uL 1.32-3.29 = 731-0) MONO x10^3 (test code 0.55 10*3/uL 0.33-0.92 = 742-7) EOS x10^3 (test code = 0.32 10*3/uL 0.03-0.39 711-2) BASO x10^3 (test code 0.08 10*3/uL 0.01-0.07 H = 704-7) Lab Interpretation Abnormal (test code = 02896-0) [facility] GLUCOSE (AUTOMATED)2021-01-16 08:30:27 Test Item Value Reference Range Interpretation Comments POCT GLU (test code = 2141025416) 171 mg/dL 70-110 H Lab Interpretation (test code = Abnormal 97494-0) [facility])2021-01-16 03:57:09 Test Item Value Reference Range Interpretation Comments POCT GLU (test code = 9364236787) 407 mg/dL 70-110 H Lab Interpretation (test code = Abnormal 26539-7) [facility] COVID [id number] 02:31:30COVID DMT InterpretationInterpretation/Recommendations:Molecular NAAT Tests for Active [...] 1-2 weeks prior to antibody testing, any qnfliuhbUEDY-VjE-3 IgG antibody result is likely due to [...] COVID-19 testing the patient has had at [facility], including molecular NAAT testing (more commonly known as PCR testing and Rapid ID Now testing) and antibody testing. It does not take into account any testing that a patient has had outside of the [facility] medical record. [facility] LABORATORY SERVICESCOVID QcxnzyvWHTC-HaO-4 Rapid ID NOW (no units) ? ? Date ? Value ? 01/15/2021 ? Not Detected ? ? ? 11/30/2020 ? Not Detected ? ? ? 09/05/2020 ? Not Detected ? [facility] LABORATORY SERVICESUnBrooke Army Medical CenterUrinalysis2021-08-21 02:28:46 Test Item Value Reference Range Interpretation Comments APPEARANCE (test code = Hazy Clear A 9396205987) COLOR (test code = Yellow Yellow 7295292777) PH (test code = 4.8-8.0 8341332589) SP GRAVITY (test code = 1.003-1.030 4147407524) GLU U QUAL (test code = 500 mg/dL Normal A 2490130692) BLOOD (test code = 1+ Negative A 9187964394) KETONES (test code = Negative Negative 0280150739) PROTEIN (test code = Negative Negative 2887-8) UROBILIN (test code = Normal Normal 5911836738) BILIRUBIN (test code = Negative Negative 4418254925) NITRITE (test code = Negative Negative 8347140957) LEUK JOSEFA (test code = 500/uL Negative A 2261577297) RBC/HPF (test code = See_Comment H [Autom ated message] 2401618197) The system [employer] generated this result transmit anthony reference range : 0 - 3 HPF. The refe rence range was not u sed to interpret th is result as normal/abnormal . WBC/HPF (test code = See_Comment H [Autom ated message] 5253491519) The system [employer] generated this result transmit anthony reference range : 0 - 5 HPF. The refe rence range was not u sed to interpret th is result as normal/abnormal . BACTERIA (test code = Few Negative A 4831810813) MUCOUS (test code = Slight Negative LPF A 7674546307) SQ EPITH (test code = HPF 4778758006) Lab Interpretation (test Abnormal code = 42356-8) [facility])2021-01-16 01:20:09 Test Item Value Reference Range Interpretation Comments POCT GLU (test code = 6576786090) 525 mg/dL 70-110 HH Lab Interpretation (test code = Abnormal 21021-8) [facility] HospitalThyroid Stimulating Hormone (TSH)2021-01-16 00:51:02 Test Item Value Reference Range Interpretation Comments TSH (test code = See_Comment [Automated message] 4111124565) The system [employer] generated this result transmitted ref erence range: 0.45 - 4 .70 mIU/L. The refe rence range was not u sed to interpret this result as normal/abnor mal. Lab Interpretation (test Normal code = 41743-6) [facility] HospitalTroponin [id number] 00:32:40 Test Item Value Reference Interpretation Comments Range TROPONIN I (test 0.006 ng/mL See_Comment [Automated code = 0538112573) message] The system which generated this result [...] biotin. Lab Interpretation Normal (test code = 14631-7) [facility] HospitalHEPATIC FUNCTION PANEL (72662) (ALB,T.PRO,BILI T,BU/BC,ALT,AST,ALK PHOS)2021-01-16 00:20:20 Test Item Value Reference Range Interpretation Comments TOTAL BILI (test code = 2982831466) 0.8 mg/dL 0.1-1.1 BILI UNCON (test code = 0563695049) 0.5 mg/dL 0.1-1.1 BILI CONJ (test code = 5955081744) 0.0 mg/dL 0.0-0.3 T PROTEIN (test code = 8798755826) 7.6 g/dL 6.3-8.2 ALBUMIN (test code = 5661168898) 4.0 g/dL 3.5-5.0 ALK PHOS (test code = 6443311559) 159 U/L 34-122 H ALTv (test code = 1742-6) 18 U/L 5-35 AST(SGOT) (test code = 5741760180) 27 U/L 13-40 Lab Interpretation (test code = Abnormal 39660-0) [facility] HospitalPhosphorus [id number] 00:19:59 Test Item Value Reference Range Interpretation Comments PHOSPHORUS (test code = 8483247836) 3.4 mg/dL 2.5-5.0 Lab Interpretation (test code = Normal 83951-6) [facility] HospitalGlycosylated Hemoglobin (A1C)2021-01-16 00:15:56 Test Item Value Reference Range Interpretation Comments HGB A1C (test code = >14.0 4.0-5.7 H 4548-4) NISHA (test code = NISHA) Reference RangesNormal: <5.7%Prediabetes: 5.7 - 6.4%Diabetes: > 6.5% Lab Interpretation (test Abnormal code = 11577-5) [facility]PO[facility]SE (AUTOMATED)2021-01-15 22:36:13 Test Item Value Reference Range Interpretation Comments POCT GLU (test code = 3630211890) 565 mg/dL 70-110 HH Lab Interpretation (test code = Abnormal 57218-4) [facility] HospitalCOVID-19 (ID NOW RAPID TESTING)2021-01-15 21:10:19 Test Item Value Reference Range Interpretation Comments SARS-CoV-2 Rapid ID NOW Not Detected Not Detected (test code = 18963-0) NISHA (test code = NISHA) ID NOW COVID-19 Assay is an isothermal nucleic acid amplification test intended for the qualitative detection of nucleic acid from SARS-CoV-2 viral RNA in nasopharyngeal ([employer]) specimens. It is used under Emergency Use [...] indicated. Lab Interpretation Normal (test code = 72942-6) [facility] HEMOGLOBIN A1C [id number] 16:42:00 Test Item Value Reference Range Interpretation Comments POCT HBA1C (test code = 4548-4) 14 % 4-6 A Lab Interpretation (test code = Abnormal 58131-8) [facility] HEMOGLOBIN A1C [id number] 16:42:00 Test Item Value Reference Range Interpretation Comments POCT HBA1C (test code = 4548-4) 14 % 4-6 A Lab Interpretation (test code = Abnormal 12033-8) [facility] GLUCOSE (AUTOMATED)2020-12-01 17:40:09 Test Item Value Reference Range Interpretation Comments POCT GLU (test code = 350 mg/dL 70-110 H Notifi ed Provider 8583592286) Lab Interpretation (test Abnormal code = 36432-2) [facility] GLUCOSE (AUTOMATED)2020-12-01 13:22:36 Test Item Value Reference Range Interpretation Comments POCT GLU (test code = 8854495413) 215 mg/dL 70-110 H Lab Interpretation (test code = Abnormal 95409-0) [facility] Metabolic Panel (NA, K, CL, CO2, GLUCOSE, BUN, CREATININE, CA)2020-12-01 11:30:25 Test Item Value Reference Range Interpretation Comments NA (test code = 135 mmol/L 135-145 2590597415) K (test code = 4.0 mmol/L 3.5-5.0 1127306408) CL (test code = 104 mmol/L 98-108 4802806809) CO2 TOTAL (test code = 21 mmol/L 23-31 L 3401537583) AGAP (test code = 2-16 5848636522) BUN (test code = 13 mg/dL 7-23 4477914746) GLUCOSE (test code = 388 mg/dL 70-110 H 0276227077) CREATININE (test code = 0.69 mg/dL 0.50-1.04 9884255455) CALCIUM (test code = 8.0 mg/dL 8.6-10.6 L 5788975268) eGFR (test code = mL/min/1.73m2 4828807630) NISHA (test code = NISHA) Association of [...] tests). Lab Interpretation Abnormal (test code = 02403-2) [facility] HospitalMagnesium [id number] 11:30:25 Test Item Value Reference Range Interpretation Comments MAGNESIUM (test code = 4649013323) 1.6 mg/dL 1.7-2.4 L Lab Interpretation (test code = Abnormal 06145-0) [facility]CB with [id number] 10:38:41 Test Item Value Reference Range Interpretation Comments WBC (test code = See_Comment [Automated 6990-2) message] The sy stem which generated this [...] (test code = 38.6 fL 39.0-49.9 L 06055-5) RDW-CV (test code = 12.1 % 12.0-15.5 788-0) PLT (test code = See_Comment [Automated 777-3) message] The sy stem which generated this result transmitted reference range : 166 - 358 10*3/ ?L. The reference r chelsie was not used to interpret this result as normal/abnormal . MPV (test code = 10.6 fL 9.5-12.9 53482-6) NRBC/100 WBC (test See_Comment [Automat ed code = 0035823556) message] The system which generated this result transmitted reference range : 0.0 - 10.0 /100 WBCs. The refer ence range was not u sed to interpret th is result as normal/abnormal . NRBC x10^3 (test code <0.01 See_Comment [Auto mated = 1370127056) message] The s ystem which generated this result transmitted reference range : 10*3/?L. The reference range was not used to interpret this result as normal/abnormal . GRAN MAT (NEUT) % 73.2 % (test code = 770-8) IMM GRAN % (test code 0.40 % = 8722386420) LYMPH % (test code = 18.4 % 736-9) MONO % (test code = 5.6 % 5905-5) EOS % (test code = 2.0 % 713-8) BASO % (test code = 0.4 % 706-2) GRAN MAT x10^3(ANC) 7.52 10*3/uL 1.88-7.09 H (test code = 8379592047) IMM GRAN x10^3 (test 0.04 10*3/uL 0.00-0.06 code = 4423798360) LYMPH x10^3 (test code 1.89 10*3/uL 1.32-3.29 = 731-0) MONO x10^3 (test code 0.58 10*3/uL 0.33-0.92 = 742-7) EOS x10^3 (test code = 0.21 10*3/uL 0.03-0.39 711-2) BASO x10^3 (test code 0.04 10*3/uL 0.01-0.07 = 704-7) Lab Interpretation Abnormal (test code = 51583-5) [facility]PO[facility])2020-12-01 02:30:55 Test Item Value Reference Range Interpretation Comments POCT GLU (test code = 9959846713) 347 mg/dL 70-110 H Lab Interpretation (test code = Abnormal 59477-8) [facility] HospitalACTIVATED PARTIAL THRMPLAS [id number] 01:05:55 Test Item Value Reference Range Interpretation Comments APTT Patient (test code See_Comment H [Au tomated message] = 3173-2) The system whic h generated this result transmitted ref erence range: 26 - 36 Seconds. The reference range was not used to int erpret this result as normal/abnormal . Lab Interpretation (test Abnormal code = 32704-5) [facility]LAB ONLY COVID [id number] 22:44:24COVID DMT InterpretationInterpretation/Recommendations:Molecular NAAT Tests for Active [...] COVID-19 testing the patient has had at [facility], including molecular NAAT testing (more commonly known as PCR testing and Rapid ID Now testing) and antibody testing. It does not take into account any testing that a patient has had outside of the [facility] medical record. [facility] LABORATORY SERVICESCOVID ResultsSARS- CoV-2 Rapid ID NOW (no units) ? ? Date ? Value ? 11/30/2020 ? Not Detected ? ? ? 09/05/2020 ? Not Detected ? [facility]ORATORY SERVICESUnBrooke Army Medical Center POCT ACT LOW [id number] 22:26:21 Test Item Value Reference Range Interpretation Comments ACTLR (test code = See_Comment H [Automat ed message] 6140554494) The system [employer] generated this result transmitted ref erence range: 89 - 169 Seconds. The reference range was not used to int erpret this result as normal/abnormal . Lab Interpretation (test Abnormal code = 33728-8) [facility]PO[facility] ACT LOW [id number] 22:03:24 Test Item Value Reference Range Interpretation Comments ACTLR (test code = See_Comment H [Automat ed message] 5359979036) The system [employer] generated this result transmitted ref erence range: 89 - 169 Seconds. The reference range was not used to int erpret this result as normal/abnormal . Lab Interpretation (test Abnormal code = 86088-0) [facility] HospitalBASI METABOLIC PANEL (NA, K, CL, CO2, GLUCOSE, BUN, CREATININE, CA)2020-11-30 16:00:24 Test Item Value Reference Range Interpretation Comments NA (test code = 130 mmol/L 135-145 L 1811377893) K (test code = 3.8 mmol/L 3.5-5.0 7410812194) CL (test code = 98 mmol/L 98-108 4443174450) CO2 TOTAL (test code = 25 mmol/L 23-31 9880535310) AGAP (test code = 2-16 2052983592) BUN (test code = 12 mg/dL 7-23 4984745741) GLUCOSE (test code = 624 mg/dL 70-110 HH 1789970894) CREATININE (test code = 0.63 mg/dL 0.50-1.04 6512517542) CALCIUM (test code = 8.2 mg/dL 8.6-10.6 L 4458509099) eGFR (test code = mL/min/1.73m2 0030079015) NISHA (test code = NISHA) Association of [...] tests). Lab Interpretation Abnormal (test code = 91851-9) [facility] (ID NOW RAPID TESTING)2020-11-30 13:55:18 Test Item Value Reference Range Interpretation Comments SARS-CoV-2 Rapid ID NOW Not Detected Not Detected (test code = 11791-3) NISHA (test code = NISHA) ID NOW COVID-19 Assay is an isothermal nucleic acid amplification test intended for the qualitative detection of nucleic acid from SARS-CoV-2 viral RNA in nasopharyngeal ([employer]PER) specimens. It is used under Emergency Use [...] indicated. Lab Interpretation Normal (test code = 21216-5) [facility] GLUCOSE(AGE >30DAYS)2020-10-07 19:39:00 Test Item Value Reference Range Interpretation Comments POCT Glu (age>30days) (test code = 189 mg/dL 70-110 A 3342) Lab Interpretation (test code = Abnormal 27388-0) [facility] GLUCOSE(AGE >30DAYS)2020-10-07 19:39:00 Test Item Value Reference Range Interpretation Comments POCT Glu (age>30days) (test code = 189 mg/dL 70-110 A 3342) Lab Interpretation (test code = Abnormal 03286-8) [facility] GLUCOSE (AUTOMATED)2020-09-07 22:31:04 Test Item Value Reference Range Interpretation Comments POCT GLU (test code = 9068907003) 72 mg/dL 70-110 Lab Interpretation (test code = Normal 79216-1) [facility] GLUCOSE (AUTOMATED)2020-09-07 21:54:57 Test Item Value Reference Range Interpretation Comments POCT GLU (test code = 5003684494) 88 mg/dL 70-110 Lab Interpretation (test code = Normal 18411-7) [facility] HospitalVITAMIN D, [id number] 21:07:23 Test Item Value Reference Range Interpretation Comments VIT D 25OH (test code = <13 25-80 L 07759-5) NISHA (test code = NISHA) Deficiency: <20 ng/mLInsufficiency: 20-24 ng/mLOptimal: 25-80 ng/mL Lab Interpretation (test Abnormal code = 65391-0) [facility] GLUCOSE (AUTOMATED)2020-09-07 20:17:01 Test Item Value Reference Range Interpretation Comments POCT GLU (test code = 2158491790) 47 mg/dL 70-110 LL Lab Interpretation (test code = Abnormal 44493-6) [facility] GLUCOSE (AUTOMATED)2020-09-07 17:19:43 Test Item Value Reference Range Interpretation Comments POCT GLU (test code = 7631496900) 46 mg/dL 70-110 LL Lab Interpretation (test code = Abnormal 64393-6) [facility] GLUCOSE (AUTOMATED)2020-09-07 17:19:42 Test Item Value Reference Range Interpretation Comments POCT GLU (test code = 9073664445) 183 mg/dL 70-110 H Lab Interpretation (test code = Abnormal 47169-2) [facility] WITH [id number] 11:16:01 Test Item Value Reference Range Interpretation [...] RDW-SD (test code = 42.8 fL 39.0-49.9 36361-3) RDW-CV (test code = 13.1 % 12.0-15.5 788-0) PLT (test code = See_Comment [Automated 777-3) message] The sy stem which generated this result transmitted reference range : 166 - 358 10*3/ ?L. The reference r chelsie was not used to interpret this result as normal/abnormal . MPV (test code = 11.4 fL 9.5-12.9 89464-4) IPF % (test code = 3.7 % 1.3-7.7 Platelet count 6716512989) measured by fluorescence method. NRBC/100 WBC (test See_Comment [Automat ed code = 9462373933) message] The system which generated this result transmitted reference range : 0.0 - 10.0 /100 WBCs. The refer ence range was not u sed to interpret th is result as normal/abnormal . NRBC x10^3 (test code <0.01 See_Comment [Auto mated = 8069510391) message] The s ystem which generated this result transmitted reference range : 10*3/?L. The reference range was not used to interpret this result as normal/abnormal . GRAN MAT (NEUT) % 82.6 % (test code = 770-8) IMM GRAN % (test code 0.50 % = 8010240507) LYMPH % (test code = 8.8 % 736-9) MONO % (test code = 6.3 % 5905-5) EOS % (test code = 1.6 % 713-8) BASO % (test code = 0.2 % 706-2) GRAN MAT x10^3(ANC) 11.20 10*3/uL 1.88-7.09 H (test code = 0680851414) IMM GRAN x10^3 (test 0.07 10*3/uL 0.00-0.06 H code = 6290053931) LYMPH x10^3 (test 1.19 10*3/uL 1.32-3.29 L code = 731-0) MONO x10^3 (test code 0.85 10*3/uL 0.33-0.92 = 742-7) EOS x10^3 (test code 0.22 10*3/uL 0.03-0.39 = 711-2) BASO x10^3 (test code 0.03 10*3/uL 0.01-0.07 = 704-7) Lab Interpretation Abnormal (test code = 67067-8) [facility])2020-09-07 11:07:40 Test Item Value Reference Range Interpretation Comments POCT GLU (test code = 3494970294) 215 mg/dL 70-110 H Lab Interpretation (test code = Abnormal 92506-6) [facility] HospitalCOMP. METABOLIC PANEL (10205)2020-09-07 10:56:53 Test Item Value Reference Range Interpretation Comments NA (test code = 137 mmol/L 135-145 5275261933) K (test code = 4.6 mmol/L 3.5-5.0 8503269280) CL (test code = 109 mmol/L 98-108 H 1482775186) CO2 TOTAL (test code = 22 mmol/L 23-31 L 3054347740) AGAP (test code = 2-16 5401287342) BUN (test code = 8 mg/dL 7-23 1423923024) GLUCOSE (test code = 177 mg/dL 70-110 H 0670749613) CREATININE (test code = 0.62 mg/dL 0.50-1.04 8290249706) TOTAL BILI (test code = 0.3 mg/dL 0.1-1.7 2113280176) CALCIUM (test code = 7.9 mg/dL 8.6-10.6 L 8908161518) T PROTEIN (test code = 5.1 g/dL 6.3-8.2 L 3276300393) ALBUMIN (test code = 2.7 g/dL 3.5-5.0 L 1899812637) ALK PHOS (test code = 73 U/L 34-122 0501212144) ALTv (test code = 14 U/L 5-35 1742-6) AST(SGOT) (test code = 23 U/L 13-40 6748464357) eGFR (test code = mL/min/1.73m2 2030817130) NISHA (test code = NISHA) Association of [...] tests). Lab Interpretation Abnormal (test code = 54625-4) [facility] HospitalCORTISOL STIMULATION 30 [id number] 06:01:46 Test Item Value Reference Range Interpretation Comments ISIDORO 30 (test code 17.8 ug/dL = 8841354106) NISHA (test code = Normal peak serum cortisol NISHA) is greater than 20 ug/dL 30-60 minutes after 25 units of Cosyntropin IV. Biotin has been reported to cause a positive bias, interpret results relative to patient's use of biotin. [facility] HospitalCORT[facility]OL STIMULATION 0 [id number] 05:52:48 Test Item Value Reference Range Interpretation Comments ISIDORO 0 (test code = 15.7 ug/dL 4.5-23.0 5553857313) NISHA (test code = NISHA) Biotin has been reported to cause a positive bias, interpret results relative to patient's use of biotin. Lab Interpretation (test Normal code = 32341-1) [facility] HospitalCORTISOL STIMULATION 60 [id number] 05:51:28 Test Item Value Reference Range Interpretation Comments ISIDORO 60 (test code 16.6 ug/dL = 9682893909) NISHA (test code = Normal peak serum cortisol NISHA) is greater than 20 ug/dL 30-60 minutes after 25 units of Cosyntropin IV. Biotin has been reported to cause a positive bias, interpret results relative to patient's use of biotin. [facility] HospitalPONJ GLUCOSE (AUTOMATED)2020-09-06 21:06:52 Test Item Value Reference Range Interpretation Comments POCT GLU (test code = 5112383986) 73 mg/dL 70-110 Lab Interpretation (test code = Normal 96358-4) [facility] GLUCOSE (AUTOMATED)2020-09-06 20:00:38 Test Item Value Reference Range Interpretation Comments POCT GLU (test code = 3495278138) 38 mg/dL 70-110 LL Lab Interpretation (test code = Abnormal 61131-0) [facility] HospitalCORTISOL [id number] 18:39:49 Test Item Value Reference Range Interpretation Comments ISIDORO AM (test code = 1.6 ug/dL 4.5-23.0 L 7167717231) NISHA (test code = NISHA) Biotin has been reported to cause a positive bias, interpret results relative to patient's use of biotin. Lab Interpretation (test Abnormal code = 69759-1) [facility] GLUCOSE (AUTOMATED)2020-09-06 16:42:57 Test Item Value Reference Range Interpretation Comments POCT GLU (test code = 5849399800) 120 mg/dL 70-110 H Lab Interpretation (test code = Abnormal 54352-0) [facility] GLUCOSE (AUTOMATED)2020-09-06 12:48:51 Test Item Value Reference Range Interpretation Comments POCT GLU (test code = 4067514082) 217 mg/dL 70-110 H Lab Interpretation (test code = Abnormal 73559-8) [facility] HospitalN-TERMINAL [id number] 11:44:45 Test Item Value Reference Range Interpretation Comments NT-proBNP (test code 423 pg/mL See_Comment H [Autom ated = 4376834242) message] The system which generated this result transmitted reference range : <=125. The reference range was not used to interpret this result as normal/abnormal . NISHA (test code = NISHA) Biotin has been reported to cause a negative bias, interpret results relative to patient's use of biotin. Lab Interpretation Abnormal (test code = 68439-6) [facility] 11:36:41 Test Item Value Reference Range Interpretation Comments MAGNESIUM (test code = 0926233097) 1.7 mg/dL 1.7-2.4 Lab Interpretation (test code = Normal 62302-3) [facility]. METABOLIC PANEL (84898)2020-09-06 11:36:21 Test Item Value Reference Range Interpretation Comments NA (test code = 138 mmol/L 135-145 4608660197) K (test code = 4.1 mmol/L 3.5-5.0 3569083469) CL (test code = 110 mmol/L 98-108 H 6036633667) CO2 TOTAL (test code = 25 mmol/L 23-31 8376790993) AGAP (test code = 2-16 0831840434) BUN (test code = 9 mg/dL 7-23 0974654400) GLUCOSE (test code = 196 mg/dL 70-110 H 0655593077) CREATININE (test code = 0.78 mg/dL 0.50-1.04 0236843632) TOTAL BILI (test code = 0.4 mg/dL 0.1-1.5 9785304564) CALCIUM (test code = 7.9 mg/dL 8.6-10.6 L 7951904858) T PROTEIN (test code = 5.0 g/dL 6.3-8.2 L 9938482569) ALBUMIN (test code = 2.6 g/dL 3.5-5.0 L 4153064972) ALK PHOS (test code = 65 U/L 34-122 6954812540) ALTv (test code = 13 U/L 5-35 1742-6) AST(SGOT) (test code = 24 U/L 13-40 2992605382) eGFR (test code = mL/min/1.73m2 6374908904) NISHA (test code = NISHA) Association of [...] tests). Lab Interpretation Abnormal (test code = 74616-7) [facility]PHOS[facility]2021-[facility]-11 11:36:20 Test Item Value Reference Range Interpretation Comments PHOSPHORUS (test code = 7579581819) 4.3 mg/dL 2.5-5.0 Lab Interpretation (test code = Normal 74851-5) [facility] WITH [id number] 11:26:03 Test Item Value Reference Range Interpretation Comments WBC (test code = See_Comment [Automated 6690-2) message] The sy stem which generated this result transmitted reference range : 4.30 - 11.10 10*3/?L. The reference range was not used to interpret this result as normal/abnormal . RBC (test code = See_Comment L [Automated 159-8) message] The sy stem which generated this [...] RDW-SD (test code = 42.7 fL 39.0-49.9 62290-1) RDW-CV (test code = 13.2 % 12.0-15.5 788-0) PLT (test code = See_Comment [Automated 777-3) message] The sy stem which generated this result transmitted reference range : 166 - 358 10*3/ ?L. The reference r chelsie was not used to interpret this result as normal/abnormal . MPV (test code = 10.5 fL 9.5-12.9 16691-5) NRBC/100 WBC (test See_Comment [Automat ed code = 9678442729) message] The system which generated this result transmitted reference range : 0.0 - 10.0 /100 WBCs. The refer ence range was not u sed to interpret th is result as normal/abnormal . NRBC x10^3 (test code <0.01 See_Comment [Auto mated = 1820496191) message] The s ystem which generated this result transmitted reference range : 10*3/?L. The reference range was not used to interpret this result as normal/abnormal . GRAN MAT (NEUT) % 61.4 % (test code = 770-8) IMM GRAN % (test code 0.40 % = 5220942194) LYMPH % (test code = 26.8 % 736-9) MONO % (test code = 7.3 % 5905-5) EOS % (test code = 3.6 % 713-8) BASO % (test code = 0.5 % 706-2) GRAN MAT x10^3(ANC) 4.65 10*3/uL 1.88-7.09 (test code = 1530628867) IMM GRAN x10^3 (test 0.03 10*3/uL 0.00-0.06 code = 5867281547) LYMPH x10^3 (test code 2.03 10*3/uL 1.32-3.29 = 731-0) MONO x10^3 (test code 0.55 10*3/uL 0.33-0.92 = 742-7) EOS x10^3 (test code = 0.27 10*3/uL 0.03-0.39 711-2) BASO x10^3 (test code 0.04 10*3/uL 0.01-0.07 = 704-7) Lab Interpretation Abnormal (test code = 66127-9) [facility]PO[facility]SE (AUTOMATED)2020-09-06 09:31:41 Test Item Value Reference Range Interpretation Comments POCT GLU (test code = 8268538194) 119 mg/dL 70-110 H Lab Interpretation (test code = Abnormal 05385-8) [facility] HospitalSEDIMENTATION [id number] 02:23:15 Test Item Value Reference Range Interpretation Comments ESR (test code = See_Comment H [Automated message] 2498754543) The system [employer] generated this result transmitted ref erence range: 0 - 20 m m/HR. The reference r chelsie was not used to interpret this result as normal/abnor mal. Lab Interpretation (test Abnormal code = 93334-6) [facility] HospitalTROPONIN [id number] 01:26:18 Test Item Value Reference Range Interpretation Comments TROPONIN I (test 0.004 ng/mL See_Comment [Automated code = 7445579584) message] The system which generated this result [...] ? Lab Interpretation Normal (test code = 47298-3) [facility] GLUCOSE (AUTOMATED)2020-09-05 21:59:05 Test Item Value Reference Range Interpretation Comments POCT GLU (test code = 2237291005) 119 mg/dL 70-110 H Lab Interpretation (test code = Abnormal 92697-1) [facility] GLUCOSE (AUTOMATED)2020-09-05 20:48:26 Test Item Value Reference Range Interpretation Comments POCT GLU (test code = 1759534185) 237 mg/dL 70-110 H Lab Interpretation (test code = Abnormal 44484-2) [facility] GLUCOSE (AUTOMATED)2020-09-05 20:48:26 Test Item Value Reference Range Interpretation Comments POCT GLU (test code = 9275130087) 208 mg/dL 70-110 H Lab Interpretation (test code = Abnormal 48223-8) [facility] HospitalLIPID PANEL (40057)(TOTAL CHOLESTEROL, TRIGLYCERIDES, HDL)2020-09-05 20:09:59 Test Item Value Reference Range Interpretation Comments CHOL (test code = 175 mg/dL 120-200 4265310789) HDL (test code = 29 mg/dL >50 L 1976607351) HDLC RATIO (test code = See_Comment H [Au tomated message] 6194713881) The system [employer] generated this result transmit anthony reference range : <=4.5. The refe rence range was not u sed to interpret th is result as normal/abnormal . TRIG (test code = 359 mg/dL 30-170 H 2739464996) LDL CHOL (test code = 74 mg/dL See_Comment [Auto mated message] 52013-0) The system [employer] generated this result transmit anthony reference range : <=160. The refe rence range was not u sed to interpret th is result as normal/abnormal . VLDL (test code = 72 mg/dL 5-60 H 6541141594) Lab Interpretation (test Abnormal code = 45182-2) [facility] HospitalVITAMIN B12, [id number] 19:54:18 Test Item Value Reference Range Interpretation Comments VIT B12 (test code = 589 pg/mL 240-930 7915008563) NISHA (test code = NISHA) Biotin has been reported to cause a positive bias, interpret results relative to patient's use of biotin. Lab Interpretation (test Normal code = 85090-6) [facility] HospitalPROCALCITONIN2021-04-10 16:28:13 Test Item Value Reference Range Interpretation Comments Procalcitonin (test 0.02 ng/mL <0.07 code = 4707228738) NISHA (test code = NISHA) INTERPRETATION OF [...] lung abscess/empyema. For further information please refer to:[email or web address] Lab Interpretation Normal (test code = 46858-5) [facility] HospitalGLYCOSYLATED HEMOGLOBIN (A1C)2020-09-05 14:17:09 Test Item Value Reference Range Interpretation Comments HGB A1C (test code = >14.0 4.0-6.0 H 4548-4) NISHA (test code = NISHA) %A1C (NGSP) Interpretation (ADA)4.8-5.6 ? ? Normal or (Non-Diabetic Range)5.7-6.4 ? ? Increased Risk (Pre-Diabetic)>6.5 ?Diabetes Indicated Lab Interpretation Abnormal (test code = 58472-8) [facility] HospitalTROPONIN [id number] 12:34:46 Test Item Value Reference Range Interpretation Comments TROPONIN I (test 0.006 ng/mL See_Comment [Automated code = 7467485821) message] The system which generated this result [...] ? Lab Interpretation Normal (test code = 47414-1) [facility] HospitalN-TERMINAL [id number] 12:31:45 Test Item Value Reference Range Interpretation Comments NT-proBNP (test code 465 pg/mL See_Comment H [Autom ated = 7200789412) message] The system which generated this result transmitted reference range : <=125. The reference range was not used to interpret this result as normal/abnormal . NISHA (test code = NISHA) Biotin has been reported to cause a negative bias, interpret results relative to patient's use of biotin. Lab Interpretation Abnormal (test code = 43248-2) [facility]MAG[facility]UM2021-04-10 12:23:24 Test Item Value Reference Range Interpretation Comments MAGNESIUM (test code = 7638248113) 1.2 mg/dL 1.7-2.4 L Lab Interpretation (test code = Abnormal 41461-0) [facility] HospitalCOMP. METABOLIC PANEL (15687)2020-09-05 12:23:06 Test Item Value Reference Range Interpretation Comments NA (test code = 138 mmol/L 135-145 5907050830) K (test code = 3.0 mmol/L 3.5-5.0 L 3057662084) CL (test code = 102 mmol/L 98-108 6815196408) CO2 TOTAL (test code = 28 mmol/L - 7618845289) AGAP (test code = 2-16 0848611774) BUN (test code = 11 mg/dL 7-23 9073402063) GLUCOSE (test code = 172 mg/dL 70-110 H 5772046279) CREATININE (test code = 0.60 mg/dL 0.50-1.04 4009586773) TOTAL BILI (test code = 0.5 mg/dL 0.1-1.4 1779381432) CALCIUM (test code = 8.0 mg/dL 8.6-10.6 L 2053277892) T PROTEIN (test code = 5.9 g/dL 6.3-8.2 L 3176849271) ALBUMIN (test code = 3.2 g/dL 3.5-5.0 L 7537575960) ALK PHOS (test code = 97 U/L 34-122 9856911692) ALTv (test code = 17 U/L 5-35 1742-6) AST(SGOT) (test code = 21 U/L 13-40 8911303249) eGFR (test code = mL/min/1.73m2 3979399099) NISHA (test code = NISHA) Association of [...] tests). Lab Interpretation Abnormal (test code = 17304-8) [facility] HospitalCREATINE [id number] 12:22:45 Test Item Value Reference Range Interpretation Comments CK (test code = 0346089961) 39 U/L 33-194 Lab Interpretation (test code = Normal 34724-1) [facility] HospitalPROTHROMBIN TIME / [id number] 11:59:05 Test Item Value Reference Range Interpretation Comments PROTIME PATIENT (test See_Comment [Auto mated message] code = 5964-2) The system [employer] generated this result transmitted ref erence range: 12.0 - 1 4.7 Seconds. The re ference range was not u sed to interpret this result as normal/abnor mal. INR (test code = 6301-6) Nor mal INR <1.1; Warfarin Therap eutic range 2.0 to 3. 0 or 2.5 to 3.5, dep ending upon the indica tions. Lab Interpretation (test Normal code = 51174-1) [facility] HospitalCT ABDOMEN PELVIS WO [id number] 11:36:381. 3-4 mm, bilateral nonobstructing renal stones [...] are seen.2. Otherwise, no acute finding.RL: [id number] [facility] WITH [id number] 11:29:17 Test Item Value Reference Range Interpretation Comments WBC (test code = See_Comment [Automated 1494-2) message] The sy stem which generated this result transmitted reference range : 4.30 - 11.10 10*3/?L. The reference range was not used to interpret this result as normal/abnormal . RBC (test code = See_Comment [Automated 486-9) message] The sy stem which generated this [...] (test code = 38.2 fL 39.0-49.9 L 68530-7) RDW-CV (test code = 12.4 % 12.0-15.5 788-0) PLT (test code = See_Comment [Automated 777-3) message] The sy stem which generated this result transmitted reference range : 166 - 358 10*3/ ?L. The reference r chelsie was not used to interpret this result as normal/abnormal . MPV (test code = 10.9 fL 9.5-12.9 29198-6) NRBC/100 WBC (test See_Comment [Automat ed code = 6322562438) message] The system which generated this result transmitted reference range : 0.0 - 10.0 /100 WBCs. The refer ence range was not u sed to interpret th is result as normal/abnormal . NRBC x10^3 (test code <0.01 See_Comment [Auto mated = 1508082593) message] The s ystem which generated this result transmitted reference range : 10*3/?L. The reference range was not used to interpret this result as normal/abnormal . GRAN MAT (NEUT) % 61.7 % (test code = 770-8) IMM GRAN % (test code 0.40 % = 0241327319) LYMPH % (test code = 26.7 % 736-9) MONO % (test code = 7.7 % 5905-5) EOS % (test code = 3.0 % 713-8) BASO % (test code = 0.5 % 706-2) GRAN MAT x10^3(ANC) 5.11 10*3/uL 1.88-7.09 (test code = 7593711273) IMM GRAN x10^3 (test 0.03 10*3/uL 0.00-0.06 code = 9297945116) LYMPH x10^3 (test code 2.21 10*3/uL 1.32-3.29 = 731-0) MONO x10^3 (test code 0.64 10*3/uL 0.33-0.92 = 742-7) EOS x10^3 (test code = 0.25 10*3/uL 0.03-0.39 711-2) BASO x10^3 (test code 0.04 10*3/uL 0.01-0.07 = 704-7) Lab Interpretation Abnormal (test code = 24992-5) [facility] HospitalTHYROID STIMULATING [id number] 10:36:10 Test Item Value Reference Range Interpretation Comments TSH (test code = See_Comment [Automated message] 2963108161) The system [employer] generated this result transmitted ref erence range: 0.45 - 4 .70 mIU/L. The refe rence range was not u sed to interpret this result as normal/abnor mal. Lab Interpretation (test Normal code = 37708-4) [facility]MAGNESIUM2021-04-10 10:04:49 Test Item Value Reference Range Interpretation Comments MAGNESIUM (test code = 0079864423) 1.3 mg/dL 1.7-2.4 L Lab Interpretation (test code = Abnormal 09020-8) [facility] HospitalPHOSPHORUS2021-04-10 10:04:49 Test Item Value Reference Range Interpretation Comments PHOSPHORUS (test code = 8176836174) 3.7 mg/dL 2.5-5.0 Lab Interpretation (test code = Normal 42956-6) [facility] HospitalCOVID-19 (ID NOW RAPID TESTING)2020-09-05 06:06:14 Test Item Value Reference Range Interpretation Comments SARS-CoV-2 Rapid ID NOW Not Detected Not Detected (test code = 18116-6) NISHA (test code = NISHA) ID NOW COVID-19 Assay is an isothermal nucleic acid amplification test intended for the qualitative detection of nucleic acid from SARS-CoV-2 viral RNA in nasopharyngeal ([employer]) specimens. It is used under Emergency Use [...] indicated. Lab Interpretation Normal (test code = 28176-0) [facility]PO[facility]SE (AUTOMATED)2020-09-05 04:27:52 Test Item Value Reference Range Interpretation Comments POCT GLU (test code = 7313328929) 463 mg/dL 70-110 HH Lab Interpretation (test code = Abnormal 80665-3) [facility] HospitalTROPONIN [id number] 03:44:02 Test Item Value Reference Range Interpretation Comments TROPONIN I (test 0.004 ng/mL See_Comment [Automated code = 6406242329) message] The system which generated this result [...] ? Lab Interpretation Normal (test code = 74377-8) [facility]N-TERMINAL [id number] 03:40:44 Test Item Value Reference Range Interpretation Comments NT-proBNP (test code 351 pg/mL See_Comment H [Autom ated = 4082382200) message] The system which generated this result transmitted reference range : <=125. The reference range was not used to interpret this result as normal/abnormal . NISHA (test code = NISHA) Biotin has been reported to cause a negative bias, interpret results relative to patient's use of biotin. Lab Interpretation Abnormal (test code = 45315-5) [facility]URINALYSIS2021-04-10 03:36:15 Test Item Value Reference Range Interpretation Comments APPEARANCE (test code = Hazy Clear A 8582109699) COLOR (test code = Yellow Yellow 6007683216) PH (test code = 4.8-8.0 9652034626) SP GRAVITY (test code = 1.003-1.030 1562730824) GLU U QUAL (test code = 500 mg/dL Normal A 9783716242) BLOOD (test code = Negative Negative 1121635942) KETONES (test code = Negative Negative 1727987014) PROTEIN (test code = Negative Negative 2887-8) UROBILIN (test code = Normal Normal 8110794958) BILIRUBIN (test code = Negative Negative 0195225806) NITRITE (test code = Positive Negative A 0119582144) LEUK JOSEFA (test code = 75/uL Negative A 5284908906) RBC/HPF (test code = See_Comment [Autom ated message] 2919505707) The system [employer] generated this result transmit anthony reference range : 0 - 3 HPF. The refe rence range was not u sed to interpret th is result as normal/abnormal . WBC/HPF (test code = See_Comment H [Autom ated message] 0679486179) The system [employer] generated this result transmit anthony reference range : 0 - 5 HPF. The refe rence range was not u sed to interpret th is result as normal/abnormal . BACTERIA (test code = Many Negative A 4895250744) MUCOUS (test code = Slight Negative LPF A 1083565309) SQ EPITH (test code = HPF 6132628858) YEAST BUD (test code = See_Comment H [Aut omated message] 8972220845) The system [employer] generated this result transmit anthony reference range : <=1 HPF. The refere nce range was not u sed to interpret th is result as normal/abnormal . Lab Interpretation (test Abnormal code = 66015-7) [facility] HospitalLIPASE2021-04-10 03:31:20 Test Item Value Reference Range Interpretation Comments LIPASE (test code = 7731223464) 121 U/L 0-220 Lab Interpretation (test code = Normal 62088-3) [facility] HospitalCOM. METABOLIC PANEL (81010)2020-09-05 03:14:37 Test Item Value Reference Range Interpretation Comments NA (test code = 130 mmol/L 135-145 L 0107049455) K (test code = 3.3 mmol/L 3.5-5.0 L 4292080568) CL (test code = 90 mmol/L 98-108 L 5225305269) CO2 TOTAL (test code = 29 mmol/L 23-31 3858947633) AGAP (test code = 2-16 4825180497) BUN (test code = 13 mg/dL 7-23 3408092487) GLUCOSE (test code = 605 mg/dL 70-110 HH 7320243611) CREATININE (test code = 0.68 mg/dL 0.50-1.04 3134609003) TOTAL BILI (test code = 0.7 mg/dL 0.1-1.7 2251224425) CALCIUM (test code = 8.6 mg/dL 8.6-10.6 1031898013) T PROTEIN (test code = 7.3 g/dL 6.3-8.2 8804153919) ALBUMIN (test code = 4.3 g/dL 3.5-5.0 2009050840) ALK PHOS (test code = 138 U/L 34-122 H 8000437336) ALTv (test code = 23 U/L 5-35 1742-6) AST(SGOT) (test code = 24 U/L 13-40 2520342994) eGFR (test code = mL/min/1.73m2 3961516752) NISHA (test code = NISHA) Association of [...] tests). Lab Interpretation Abnormal (test code = 13708-7) [facility] WITH [id number] 03:03:56 Test Item Value Reference Range Interpretation Comments WBC (test code = See_Comment [Automated 2360-2) message] The sy stem which generated this result transmitted reference range : 4.30 - 11.10 10*3/?L. The reference range was not used to interpret this result as normal/abnormal . RBC (test code = See_Comment [Automated 128-8) message] The sy stem which generated this [...] RDW-SD (test code = 40.1 fL 39.0-49.9 78826-7) RDW-CV (test code = 12.7 % 12.0-15.5 788-0) PLT (test code = See_Comment H [Automated 777-3) message] The sy stem which generated this result transmitted reference range : 166 - 358 10*3/ ?L. The reference r chelsie was not used to interpret this result as normal/abnormal . MPV (test code = 11.0 fL 9.5-12.9 34836-1) NRBC/100 WBC (test See_Comment [Automat ed code = 1454396921) message] The system which generated this result transmitted reference range : 0.0 - 10.0 /100 WBCs. The refer ence range was not u sed to interpret th is result as normal/abnormal . NRBC x10^3 (test code <0.01 See_Comment [Auto mated = 1399833120) message] The s ystem which generated this result transmitted reference range : 10*3/?L. The reference range was not used to interpret this result as normal/abnormal . GRAN MAT (NEUT) % 66.6 % (test code = 770-8) IMM GRAN % (test code 0.40 % = 2320459006) LYMPH % (test code = 23.7 % 736-9) MONO % (test code = 6.1 % 5905-5) EOS % (test code = 2.7 % 713-8) BASO % (test code = 0.5 % 706-2) GRAN MAT x10^3(ANC) 5.00 10*3/uL 1.88-7.09 (test code = 4851418133) IMM GRAN x10^3 (test 0.03 10*3/uL 0.00-0.06 code = 3301425290) LYMPH x10^3 (test code 1.78 10*3/uL 1.32-3.29 = 731-0) MONO x10^3 (test code 0.46 10*3/uL 0.33-0.92 = 742-7) EOS x10^3 (test code = 0.20 10*3/uL 0.03-0.39 711-2) BASO x10^3 (test code 0.04 10*3/uL 0.01-0.07 = 704-7) Lab Interpretation Abnormal (test code = 66750-3) [facility] CARE VENOUS BLOOD [id number] 02:38:19 Test Item Value Reference Range Interpretation Comments PH (test code = 7.32-7.42 0683010862) PCO2 JUSTIN (test code = See_Comment [Auto mated message] 4184782563) The system [employer] generated this result transmitted ref erence range: 41 - 51 mmHg. The reference r chelsie was not used to interpret this result as normal/abnor mal. PO2 JUSTIN (test code = See_Comment [Autom ated message] 0373029594) The system [employer] generated this result transmitted ref erence range: 25 - 40 mmHg. The reference r chelsie was not used to interpret this result as normal/abnor mal. HCO3 JUSTIN (test code = See_Comment H [Auto mated message] 3603024044) The system [employer] generated this result transmitted ref erence range: 24 - 28 mEq/L. The reference r chelsie was not used to interpret this result as normal/abnor mal. AC VBE(BEAKER) (test mEq/L code = 2126949126) Lab Interpretation (test Abnormal code = 98106-3) [facility] GLUCOSE (AUTOMATED)2020-09-05 01:59:51 Test Item Value Reference Range Interpretation Comments POCT GLU (test code = 9296995810) 557 mg/dL 70-110 HH Lab Interpretation (test code = Abnormal 15874-4) [facility] HEMOGLOBIN A1C [id number] 21:16:00 Test Item Value Reference Range Interpretation Comments POCT HBA1C (test code = 4548-4) >14 4-6 A Lab Interpretation (test code = Abnormal 39570-8) [facility] HEMOGLOBIN A1C [id number] 21:16:00 Test Item Value Reference Range Interpretation Comments POCT HBA1C (test code = 4548-4) >14 4-6 A Lab Interpretation (test code = Abnormal 58075-9) [facility] L[facility] SP[facility] 4 [id number] 22:59:21XR LUMBAR SPINE 4 VW HISTORY: Female [...] the left kidney probablyrepresents a small renal calculus.[facility], Radiant Results Inft User - 05/08/2020 5:00 [...] the left kidney probablyrepresents a small renal calculus.[facility] HIPS 2 VW [id number] 22:34:44 Impression: 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 RL: ?[id number] Clinical indication: Severe acute on chronic hip [...] unremarkable. No radiopaque foreign bodies are identified. [facility], Radiant ResultsInft User - 05/08/2020 4:35 PM CSTClinical indication: Severe acute on chronic hip pain status postfall 2days ago.Ordering Physician: RASHAD RENAEBERTFindings: AP and frog-leg lateral views of theleft hip are provided. Thereis diffuse narrowing of the left hip joint space with large marginalosteophytes noted.The visualized osseous structures are in normal anatomic alignment withoutevidence acute fracture, subluxation or dislocation. The subcutaneoustissue are unremarkable. No radiopaque foreign bodies are identified. IMPRESSIONImpression: 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RL: [id number] [facility]Bro[facility] CenterGC & CHLAMYDIA AMPLIFIED [id number] 20:07:00 Test Item Value Reference Range Interpretation Comments C. trachomatis Nucleic Negative Negative Acid (test code = 23816-7) N. gonorrhoeae Nucleic Negative Negative Acid (test code = 04594-2) NISHA (test code = NISHA) Reliable results [...] clinician. Lab Interpretation Normal (test code = 72805-8) [facility] HospitalTRICHOMONAS AMPLIFIED [id number] 20:02:00 Test Item Value Reference Range Interpretation Comments Trichomonas Nucleic Negative Negative Acid (test code = 02252-1) NISHA (test code = NISHA) Reliable results [...] clinician. Lab Interpretation Normal (test code = 41512-6) [facility] HospitalGALV ONLY - VAGINAL PATHOGENS BY NUCLEIC ACID [id number] 18:40:00 Test Item Value Reference Range Interpretation Comments Trichomonas vaginalis Negative Negative (test code = 7953073885) Nasrin species (test Positive Negative A code = 9291495028) Nasrin glabrata (test Positive Negative A code = 92934-4) Bacterial Vaginosis Positive Negative A (test code = 71112-3) NISHA (test code = NISHA) Reliable results [...] clinician. Lab Interpretation Abnormal (test code = 27593-0) [facility]PO[facility] URINALYSIS W/O SPECIFIC [id number] 19:50:00 Test Item Value Reference Range Interpretation [...] code = 3257) neg Negative [facility] [id number] 19:50:00 Test Item Value Reference Range Interpretation [...] code = 3257) neg Negative - Negative [facility]/O SPECIFIC [id number] 19:50:00 Test Item Value Reference Range Interpretation [...] code = 3257) neg Negative - Negative [facility] HEMOGLOBIN A1C [id number] 22:01:00 Test Item Value Reference Range Interpretation Comments POCT HBA1C (test code = 4548-4) >14.0 4-6 [facility] HEMOGLOBIN A1C [id number] 22:01:00 Test Item Value Reference Range Interpretation Comments POCT HBA1C (test code = 4548-4) >14.0 4-[address] [facility] [id number] 22:41:31Examination:BI SCREENING MAMMOGRAM BILATERAL History:Patient is 49 [...] the study and agree with the resident's/fellow's report.[facility]AUT[facility]ATED)2019-08-16 13:03:00 Test Item Value Reference Range Interpretation Comments POCT GLU (test code = 1209457385) 228 mg/dL 70-110 H Lab Interpretation (test code = Abnormal 92076-3) [facility]2020-03-20 10:40:00 Test Item Value Reference Range Interpretation Comments MAGNESIUM (test code = 2391910797) 4.7 mg/dL 1.7-2.4 H Lab Interpretation (test code = Abnormal 06060-2) [facility]OLIC PANEL (NA, K, CL, CO2, GLUCOSE, BUN, CREATININE, CA)2019-08-16 10:36:00 Test Item Value Reference Range Interpretation Comments NA (test code = 135 mmol/L 135-145 3583929100) K (test code = 3.9 mmol/L 3.5-5 7691143701) CL (test code = 107 mmol/L 98-108 3650366635) CO2 TOTAL (test code = 22 mmol/L 23-31 L 1875464665) AGAP (test code = 2-16 6158753991) BUN (test code = 19 mg/dL 7-23 3167035414) GLUCOSE (test code = 236 mg/dL 70-110 H 6037658344) CREATININE (test code = 0.91 mg/dL 0.5-1.04 8731979240) CALCIUM (test code = 6.6 mg/dL 8.6-10.6 L 1350093594) eGFR Calculation mL/min/1.73m2 (Non-) (test code = 2942805556) eGFR Calculation mL/min/1.73m2 () (test code = 2495424295) NISHA (test code = NISHA) Association of [...] tests). Lab Interpretation Abnormal (test code = 59317-3) [facility] WITH [id number] 10:13:00 Test Item Value Reference Range Interpretation Comments WBC (test code = See_Comment H [Automated 8390-2) message] The sy stem which generated this result transmitted reference range : 4.30 - 11.10 10*3/?L. The reference range was not used to interpret this result as normal/abnormal . RBC (test code = See_Comment L [Automated 429-8) message] The sy stem which generated this [...] RDW-SD (test code = 41.6 fL 39-49.9 43317-2) RDW-CV (test code = 12.8 % 12-15.5 788-0) PLT (test code = See_Comment [Automated 777-3) message] The sy stem which generated this result transmitted reference range : 166 - 358 10*3/ ?L. The reference r chelsie was not used to interpret this result as normal/abnormal . MPV (test code = 10.6 fL 9.5-12.9 01325-8) NRBC/100 WBC (test See_Comment [Automat ed code = 9697988717) message] The system which generated this result transmitted reference range : 0.0 - 10.0 /100 WBCs. The refer ence range was not u sed to interpret th is result as normal/abnormal . NRBC x10^3 (test code <0.01 See_Comment [Auto mated = 2647691408) message] The s ystem which generated this result transmitted reference range : 10*3/?L. The reference range was not used to interpret this result as normal/abnormal . GRAN MAT (NEUT) % 77.9 % (test code = 770-8) IMM GRAN % (test code 0.80 % = 6210503614) LYMPH % (test code = 13.8 % 736-9) MONO % (test code = 6.8 % 5905-5) EOS % (test code = 0.3 % 713-8) BASO % (test code = 0.4 % 706-2) GRAN MAT x10^3(ANC) 8.66 10*3/uL 1.88-7.09 H (test code = 5073132876) IMM GRAN x10^3 (test 0.09 10*3/uL 0-0.06 H code = 5356256901) LYMPH x10^3 (test code 1.54 10*3/uL 1.32-3.29 = 731-0) MONO x10^3 (test code 0.76 10*3/uL 0.33-0.92 = 742-7) EOS x10^3 (test code = 0.03 10*3/uL 0.03-0.39 711-2) BASO x10^3 (test code 0.04 10*3/uL 0.01-0.07 = 704-7) Lab Interpretation Abnormal (test code = 40346-0) [facility] GLUCOSE (AUTOMATED)2019-08-16 09:54:00 Test Item Value Reference Range Interpretation Comments POCT GLU (test code = 9829357362) 218 mg/dL 70-110 H Lab Interpretation (test code = Abnormal 82801-3) [facility] GLUCOSE (AUTOMATED)2019-08-16 07:12:00 Test Item Value Reference Range Interpretation Comments POCT GLU (test code = 3708561582) 355 mg/dL 70-110 H Lab Interpretation (test code = Abnormal 14623-8) [facility] GLUCOSE (AUTOMATED)2019-08-16 05:06:00 Test Item Value Reference Range Interpretation Comments POCT GLU (test code = 6552340037) 457 mg/dL 70-110 HH Lab Interpretation (test code = Abnormal 33164-1) [facility] HEAD WO [id number] 00:55:12 No acute intracranial hemorrhage or mass [...] are essentially clear. [facility], Radiant Results Inft - 08/15/2019 7:56PM CDTCT HEAD WO CONTRASTHISTORY: [...] clear. IMPRESSIONNo acute intracranial hemorrhage or mass effect.[facility] GLUCOSE (AUTOMATED)2019-08-15 22:15:00 Test Item Value Reference Range Interpretation Comments POCT GLU (test code = 6499293178) 304 mg/dL 70-110 H Lab Interpretation (test code = Abnormal 63962-2) [facility]2020-03-19 21:04:00 Test Item Value Reference Range Interpretation Comments APTT Patient (test code See_Comment L [Au tomated message] = 3173-2) The system [employer] generated this result transmitted ref erence range: 26 - 36 Seconds. The reference range was not used to int erpret this result as normal/abnormal . Lab Interpretation (test Abnormal code = 84746-1) [facility] GLUCOSE (AUTOMATED)2019-08-15 20:41:00 Test Item Value Reference Range Interpretation Comments POCT GLU (test code = 5637645992) 274 mg/dL 70-110 H Lab Interpretation (test code = Abnormal 35732-5) [facility] GLUCOSE (AUTOMATED)2019-08-15 17:10:00 Test Item Value Reference Range Interpretation Comments POCT GLU (test code = 6830940941) 308 mg/dL 70-110 H Lab Interpretation (test code = Abnormal 16909-5) [facility] ACT LOW [id number] 15:44:00 Test Item Value Reference Range Interpretation Comments ACTLR (test code = See_Comment H [Automat ed message] 8960630597) The system [employer] generated this result transmitted ref erence range: 89 - 169 Seconds. The reference range was not used to int erpret this result as normal/abnormal . Lab Interpretation (test Abnormal code = 00776-2) [facility] ACT LOW [id number] 15:22:00 Test Item Value Reference Range Interpretation Comments ACTLR (test code = See_Comment H [Automat ed message] 0789711959) The system [employer] generated this result transmitted ref erence range: 89 - 169 Seconds. The reference range was not used to int erpret this result as normal/abnormal . Lab Interpretation (test Abnormal code = 96374-6) [facility] ACT LOW [id number] 14:44:00 Test Item Value Reference Range Interpretation Comments ACTLR (test code = See_Comment H [Automat ed message] 1622925724) The system [employer] generated this result transmitted ref erence range: 89 - 169 Seconds. The reference range was not used to int erpret this result as normal/abnormal . Lab Interpretation (test Abnormal code = 35349-3) [facility] ACT LOW [id number] 14:26:00 Test Item Value Reference Range Interpretation Comments ACTLR (test code = See_Comment H [Automat ed message] 1723051917) The system [employer] generated this result transmitted ref erence range: 89 - 169 Seconds. The reference range was not used to int erpret this result as normal/abnormal . Lab Interpretation (test Abnormal code = 20655-0) [facility] METABOLIC PANEL (NA, K, CL, CO2, GLUCOSE, BUN, CREATININE, CA)2019-08-15 11:06:00 Test Item Value Reference Range Interpretation Comments NA (test code = 134 mmol/L 135-145 L 7708057255) K (test code = 4.3 mmol/L 3.5-5 6558459980) CL (test code = 105 mmol/L 98-108 9562448880) CO2 TOTAL (test code = 22 mmol/L 23-31 L 1705960022) AGAP (test code = 2-16 9744642253) BUN (test code = 21 mg/dL 7-23 7153219451) GLUCOSE (test code = 410 mg/dL 70-110 H 3765882508) CREATININE (test code = 0.92 mg/dL 0.5-1.04 3707680955) CALCIUM (test code = 7.5 mg/dL 8.6-10.6 L 1142731472) eGFR Calculation mL/min/1.73m2 (Non-) (test code = 3168965380) eGFR Calculation mL/min/1.73m2 () (test code = 5150285319) NISHA (test code = NISHA) Association of [...] tests). Lab Interpretation Abnormal (test code = 40380-5) [facility]2020-03-19 11:06:00 Test Item Value Reference Range Interpretation Comments MAGNESIUM (test code = 4262579835) 1.6 mg/dL 1.7-2.4 L Lab Interpretation (test code = Abnormal 27089-5) [facility] (for use with Heparin Practice Guideline). Note: Draw and Send all Lab STAT.2019-08-15 10:47:00 Test Item Value Reference Range Interpretation Comments APTT Patient (test code See_Comment H [Au tomated message] = 3173-2) The system [employer] generated this result transmitted ref erence range: 26 - 36 Seconds. The reference range was not used to int erpret this result as normal/abnormal . Lab Interpretation (test Abnormal code = 85920-0) [facility] WITH [id number] 10:46:00 Test Item Value Reference Range Interpretation Comments WBC (test code = See_Comment [Automated 7990-2) message] The sy stem which generated this [...] RDW-SD (test code = 39.1 fL 39-49.9 12940-7) RDW-CV (test code = 12.4 % 12-15.5 788-0) PLT (test code = See_Comment [Automated 777-3) message] The sy stem which generated this result transmitted reference range : 166 - 358 10*3/ ?L. The reference r chelsie was not used to interpret this result as normal/abnormal . MPV (test code = 10.9 fL 9.5-12.9 55073-2) NRBC/100 WBC (test See_Comment [Automat ed code = 8222388275) message] The system which generated this result transmitted reference range : 0.0 - 10.0 /100 WBCs. The refer ence range was not u sed to interpret th is result as normal/abnormal . NRBC x10^3 (test code <0.01 See_Comment [Auto mated = 5845258289) message] The s ystem which generated this result transmitted reference range : 10*3/?L. The reference range was not used to interpret this result as normal/abnormal . GRAN MAT (NEUT) % 80.6 % (test code = 770-8) IMM GRAN % (test code 0.50 % = 8877170737) LYMPH % (test code = 12.5 % 736-9) MONO % (test code = 5.8 % 5905-5) EOS % (test code = 0.4 % 713-8) BASO % (test code = 0.2 % 706-2) GRAN MAT x10^3(ANC) 8.94 10*3/uL 1.88-7.09 H (test code = 0575047246) IMM GRAN x10^3 (test 0.06 10*3/uL 0-0.06 code = 9475349062) LYMPH x10^3 (test code 1.39 10*3/uL 1.32-3.29 = 731-0) MONO x10^3 (test code 0.64 10*3/uL 0.33-0.92 = 742-7) EOS x10^3 (test code = 0.04 10*3/uL 0.03-0.39 711-2) BASO x10^3 (test code <0.03 0.01-0.07 = 704-7) Lab Interpretation Abnormal (test code = 83322-5) [facility] GLUCOSE (AUTOMATED)2019-08-15 09:48:00 Test Item Value Reference Range Interpretation Comments POCT GLU (test code = 2437209140) 319 mg/dL 70-110 H Lab Interpretation (test code = Abnormal 14553-6) [facility] GLUCOSE (AUTOMATED)2019-08-15 06:35:00 Test Item Value Reference Range Interpretation Comments POCT GLU (test code = 0835262523) 479 mg/dL 70-110 HH Lab Interpretation (test code = Abnormal 38632-7) [facility] GLUCOSE (AUTOMATED)2019-08-15 03:10:00 Test Item Value Reference Range Interpretation Comments POCT GLU (test code = 8651095006) 450 mg/dL 70-110 HH Lab Interpretation (test code = Abnormal 26304-8) [facility] (for use with Heparin Practice Guideline). Note: Draw and Send all Lab STAT.2019-08-15 02:31:00 Test Item Value Reference Range Interpretation Comments APTT Patient (test code See_Comment HH [Au tomated message] = 3173-2) The system [employer] generated this result transmitted ref erence range: 26 - 36 Seconds. The reference range was not used to int erpret this result as normal/abnormal . Lab Interpretation (test Abnormal code = 00452-9) [facility] METABOLIC PANEL (NA, K, CL, CO2, GLUCOSE, BUN, CREATININE, CA)2019-08-15 02:30:00 Test Item Value Reference Range Interpretation Comments NA (test code = 131 mmol/L 135-145 L 8093921877) K (test code = 4.6 mmol/L 3.5-5 3948911045) CL (test code = 102 mmol/L 98-108 7128922173) CO2 TOTAL (test code = 21 mmol/L 23-31 L 8778828182) AGAP (test code = 2-16 3680800802) BUN (test code = 21 mg/dL 7-23 0352559381) GLUCOSE (test code = 479 mg/dL 70-110 HH 0819453409) CREATININE (test code = 1.08 mg/dL 0.5-1.04 H 1717453477) CALCIUM (test code = 7.3 mg/dL 8.6-10.6 L 8253425485) eGFR Calculation mL/min/1.73m2 (Non-) (test code = 3069109432) eGFR Calculation mL/min/1.73m2 () (test code = 5347941837) NISHA (test code = NISHA) Association of [...] tests). Lab Interpretation Abnormal (test code = 89549-2) [facility] GLUCOSE (AUTOMATED)2019-08-15 01:59:00 Test Item Value Reference Range Interpretation Comments POCT GLU (test code = 6146809341) 471 mg/dL 70-110 HH Lab Interpretation (test code = Abnormal 67560-1) [facility] GLUCOSE (AUTOMATED)2019-08-14 22:49:00 Test Item Value Reference Range Interpretation Comments POCT GLU (test code = 5360993958) 399 mg/dL 70-110 H Lab Interpretation (test code = Abnormal 43544-8) [facility] GLUCOSE (AUTOMATED)2019-08-14 20:45:00 Test Item Value Reference Range Interpretation Comments POCT GLU (test code = 1748679898) 473 mg/dL 70-110 HH Lab Interpretation (test code = Abnormal 53148-8) [facility] (for use with Heparin Practice Guideline). Note: Draw and Send all Lab STAT.2019-08-14 19:52:00 Test Item Value Reference Range Interpretation Comments APTT Patient (test code = See_Comment [ Automated message] 3173-2) The system [employer] generated this result transmitted ref erence range: 26 - 36 Seconds. The re ference range was not u sed to interpret this result as normal/abnor mal. Lab Interpretation (test Normal code = 96847-5) [facility] GLUCOSE (AUTOMATED)2019-08-14 17:24:00 Test Item Value Reference Range Interpretation Comments POCT GLU (test code = 421 mg/dL 70-110 H Notifi ed Provider 9247440193) Lab Interpretation (test Abnormal code = 29272-1) [facility]GAL[facility] ONLY - INFLUENZA A B RSV [id number] 16:21:00 Test Item Value Reference Range Interpretation Comments Influenza A virus by PCR (test code Negative Negative = 79552-0) Influenza B virus by PCR (test code Negative Negative = 48146-0) RSV by PCR (test code = 56188-9) Negative Negative Lab Interpretation (test code = Normal 18735-0) [facility] GLU[facility]SE (AUTOMATED)2019-08-14 14:00:00 Test Item Value Reference Range Interpretation Comments POCT GLU (test code = 5412648238) 314 mg/dL 70-110 H Lab Interpretation (test code = Abnormal 19563-2) [facility] METABOLIC PANEL (NA, K, CL, CO2, GLUCOSE, BUN, CREATININE, CA)2019-08-14 11:02:00 Test Item Value Reference Range Interpretation Comments NA (test code = 135 mmol/L 135-145 0549715649) K (test code = 4.4 mmol/L 3.5-5 1848495379) CL (test code = 106 mmol/L 98-108 7883299352) CO2 TOTAL (test code = 23 mmol/L 23-31 2155694804) AGAP (test code = 2-16 8455894143) BUN (test code = 15 mg/dL 7-23 2857485769) GLUCOSE (test code = 273 mg/dL 70-110 H 8664569214) CREATININE (test code = 1.04 mg/dL 0.5-1.04 5556364363) CALCIUM (test code = 7.5 mg/dL 8.6-10.6 L 7186036560) eGFR Calculation mL/min/1.73m2 (Non-) (test code = 5097109014) eGFR Calculation mL/min/1.73m2 () (test code = 4264782008) NISHA (test code = NISHA) Association of [...] tests). Lab Interpretation Abnormal (test code = 90108-4) [facility]2020-03-18 11:02:00 Test Item Value Reference Range Interpretation Comments MAGNESIUM (test code = 9101544822) 1.6 mg/dL 1.7-2.4 L Lab Interpretation (test code = Abnormal 01024-5) [facility] (for use with Heparin Practice Guideline). Note: Draw and Send all Lab STAT.2019-08-14 10:34:00 Test Item Value Reference Range Interpretation Comments APTT Patient (test code = See_Comment [ Automated message] 3173-2) The system [employer] h generated this result transmitted ref erence range: 26 - 36 Seconds. The re ference range was not u sed to interpret this result as normal/abnor mal. Lab Interpretation (test Normal code = 65281-0) [facility]CB WITH [id number] 10:28:00 Test Item Value Reference Range Interpretation Comments WBC (test code = See_Comment [Automated 1490-2) message] The sy stem which generated this result transmitted reference range : 4.30 - 11.10 10*3/?L. The reference range was not used to interpret this result as normal/abnormal . RBC (test code = See_Comment [Automated 754-8) message] The sy stem which generated this [...] RDW-SD (test code = 41.0 fL 39-49.9 62363-0) RDW-CV (test code = 12.6 % 12-15.5 788-0) PLT (test code = See_Comment [Automated 777-3) message] The sy stem which generated this result transmitted reference range : 166 - 358 10*3/ ?L. The reference r chelsie was not used to interpret this result as normal/abnormal . MPV (test code = 10.3 fL 9.5-12.9 04281-0) NRBC/100 WBC (test See_Comment [Automat ed code = 0776661232) message] The system which generated this result transmitted reference range : 0.0 - 10.0 /100 WBCs. The refer ence range was not u sed to interpret th is result as normal/abnormal . NRBC x10^3 (test code <0.01 See_Comment [Auto mated = 0422898984) message] The s ystem which generated this result transmitted reference range : 10*3/?L. The reference range was not used to interpret this result as normal/abnormal . GRAN MAT (NEUT) % 63.5 % (test code = 770-8) IMM GRAN % (test code 0.30 % = 9604298453) LYMPH % (test code = 19.9 % 736-9) MONO % (test code = 6.3 % 5905-5) EOS % (test code = 9.7 % 713-8) BASO % (test code = 0.3 % 706-2) GRAN MAT x10^3(ANC) 6.48 10*3/uL 1.88-7.09 (test code = 5980244729) IMM GRAN x10^3 (test 0.03 10*3/uL 0-0.06 code = 1695422914) LYMPH x10^3 (test code 2.03 10*3/uL 1.32-3.29 = 731-0) MONO x10^3 (test code 0.64 10*3/uL 0.33-0.92 = 742-7) EOS x10^3 (test code = 0.99 10*3/uL 0.03-0.39 H 711-2) BASO x10^3 (test code 0.03 10*3/uL 0.01-0.07 = 704-7) Lab Interpretation Abnormal (test code = 26981-5) [facility] GLUCOSE (AUTOMATED)2019-08-14 01:29:00 Test Item Value Reference Range Interpretation Comments POCT GLU (test code = 5624531033) 236 mg/dL 70-110 H Lab Interpretation (test code = Abnormal 40158-3) [facility]for use with Heparin Practice Guideline). Note: Draw and Send all Lab STAT.2019-08-13 23:18:00 Test Item Value Reference Range Interpretation Comments APTT Patient (test code = See_Comment [ Automated message] 3173-2) The system [employer] generated this result transmitted ref erence range: 26 - 36 Seconds. The re ference range was not u sed to interpret this result as normal/abnor mal. Lab Interpretation (test Normal code = 65354-5) [facility] GLUCOSE (AUTOMATED)2019-08-13 23:09:00 Test Item Value Reference Range Interpretation Comments POCT GLU (test code = 2771378220) 305 mg/dL 70-110 H Lab Interpretation (test code = Abnormal 05775-5) [facility] GLUCOSE (AUTOMATED)2019-08-13 19:29:00 Test Item Value Reference Range Interpretation Comments POCT GLU (test code = 2627469037) 310 mg/dL 70-110 H Lab Interpretation (test code = Abnormal 87230-4) [facility] HospitalTROPONIN [id number] 14:04:00 Test Item Value Reference Range Interpretation Comments TROPONIN I (test 0.012 ng/mL See_Comment [Automated code = 8414639423) message] The system which generated this result [...] ? Lab Interpretation Normal (test code = 52069-1) [facility]ATED)2019-08-13 13:16:00 Test Item Value Reference Range Interpretation Comments POCT GLU (test code = 5947252319) 281 mg/dL 70-110 H Lab Interpretation (test code = Abnormal 07021-1) [facility] WITH [id number] 12:20:00 Test Item Value Reference Range Interpretation Comments WBC (test code = See_Comment H [Automated 1290-2) message] The sy stem which generated this result transmitted reference range : 4.30 - 11.10 10*3/?L. The reference range was not used to interpret this result as normal/abnormal . RBC (test code = See_Comment [Automated 529-8) message] The sy stem which generated this [...] RDW-SD (test code = 40.6 fL 39-49.9 79749-9) RDW-CV (test code = 12.7 % 12-15.5 788-0) PLT (test code = See_Comment [Automated 777-3) message] The sy stem which generated this result transmitted reference range : 166 - 358 10*3/ ?L. The reference r chelsie was not used to interpret this result as normal/abnormal . MPV (test code = 10.7 fL 9.5-12.9 36959-0) NRBC/100 WBC (test See_Comment [Automat ed code = 1830228167) message] The system which generated this result transmitted reference range : 0.0 - 10.0 /100 WBCs. The refer ence range was not u sed to interpret th is result as normal/abnormal . NRBC x10^3 (test code <0.01 See_Comment [Auto mated = 9289656113) message] The s ystem which generated this result transmitted reference range : 10*3/?L. The reference range was not used to interpret this result as normal/abnormal . GRAN MAT (NEUT) % 71.8 % (test code = 770-8) IMM GRAN % (test code 0.50 % = 9308197338) LYMPH % (test code = 12.3 % 736-9) MONO % (test code = 6.9 % 5905-5) EOS % (test code = 8.0 % 713-8) BASO % (test code = 0.5 % 706-2) GRAN MAT x10^3(ANC) 9.08 10*3/uL 1.88-7.09 H (test code = 9702961483) IMM GRAN x10^3 (test 0.06 10*3/uL 0-0.06 code = 1164328892) LYMPH x10^3 (test code 1.56 10*3/uL 1.32-3.29 = 731-0) MONO x10^3 (test code 0.87 10*3/uL 0.33-0.92 = 742-7) EOS x10^3 (test code = 1.01 10*3/uL 0.03-0.39 H 711-2) BASO x10^3 (test code 0.06 10*3/uL 0.01-0.07 = 704-7) Lab Interpretation Abnormal (test code = 44214-9) [facility]2020-[facility]-17 09:19:00 Test Item Value Reference Range Interpretation Comments MAGNESIUM (test code = 9846044997) 1.5 mg/dL 1.7-2.4 L Lab Interpretation (test code = Abnormal 23869-3) [facility]XR CHEST 1 [id number] 08:54:25Impression: Moderate cardiomegaly without acute pulmonary process. Status post mediansternotomy. RL: 460 AFC: [id number] Indication: Chest pain Comparison: None Findings: Single AP view of the chest. The cardiopericardial silhouette is moderately enlarged. The patient is status post median sternotomy. Thelungs are clear bilaterally. The visualized bony thorax is intact. [facility], Radiant Results Inft User - 08/13/2019 3:55 AM CDTIndication: Chest painComparison: NoneFindings: Single AP view of the chest. The cardiopericardial silhouette ismoderately enlarged. The patient is status post median sternotomy. Thelungs are clear bilaterally. The visualized bony thorax is intact.IMPRESSIONImpression:Moderate cardiomegaly without acute pulmonary process. Status post mediansternotomy.RL: 460AFC: [id number] signed by Gemini Martins MD, PhD at 08/13/2019 3:54 AMUnBrooke Army Medical CenterGlycosylated Hemoglobin (A1C)2019-08-13 07:12:00 Test Item Value Reference Range Interpretation Comments HGB A1C (test code = 4548-4) 10.8 % 4-6 H Lab Interpretation (test code = Abnormal 84524-2) [facility] HospitalN-[facility]MINAL [id number] 06:39:00 Test Item Value Reference Range Interpretation Comments NT-proBNP (test code 384 pg/mL See_Comment H [Autom ated = 8183944567) message] The system which generated this result transmitted reference range : <=125. The reference range was not used to interpret this result as normal/abnormal . NISHA (test code = NISHA) Biotin has been reported to cause a negative bias, interpret results relative to patient's use of biotin. Lab Interpretation Abnormal (test code = 45535-2) [facility] HospitalTROP[facility]IN [id number] 06:39:00 Test Item Value Reference Range Interpretation Comments TROPONIN I (test 0.008 ng/mL See_Comment [Automated code = 3643526399) message] The system which generated this result [...] ? Lab Interpretation Normal (test code = 16113-6) [facility] (NA, K, CL, CO2, GLUCOSE, BUN, CREATININE, CA)2019-08-13 06:35:00 Test Item Value Reference Range Interpretation Comments NA (test code = 134 mmol/L 135-145 L 4590312430) K (test code = 4.1 mmol/L 3.5-5 1882047357) CL (test code = 102 mmol/L 98-108 1181921317) CO2 TOTAL (test code = 22 mmol/L 23-31 L 5926466196) AGAP (test code = 2-16 2972026520) BUN (test code = 23 mg/dL 7-23 6396648288) GLUCOSE (test code = 324 mg/dL 70-110 H 3373715192) CREATININE (test code = 1.07 mg/dL 0.5-1.04 H 5241756213) CALCIUM (test code = 8.4 mg/dL 8.6-10.6 L 7407350331) eGFR Calculation mL/min/1.73m2 (Non-) (test code = 5086243693) eGFR Calculation mL/min/1.73m2 () (test code = 2712660496) NISHA (test code = NISHA) Association of [...] tests). Lab Interpretation Abnormal (test code = 63450-9) [facility]2020-[facility] 06:07:00 Test Item Value Reference Range Interpretation Comments APTT Patient (test code = See_Comment [ Automated message] 3173-2) The system [employer] h generated this result transmitted ref erence range: 26 - 36 Seconds. The re ference range was not u sed to interpret this result as normal/abnor mal. Lab Interpretation (test Normal code = 53033-7) [facility] Time / [id number] 06:07:00 Test Item Value Reference Range Interpretation Comments PROTIME PATIENT (test See_Comment [Auto mated message] code = 5964-2) The system [employer] ich generated this result transmitted ref erence range: 10.1 - 1 2.6 Seconds. The re ference range was not u sed to interpret this result as normal/abnor mal. INR (test code = 6301-6) Nor mal INR <1.1; Warfarin Therap eutic range 2.0 to 3. 0 or 2.5 to 3.5, dep ending upon the indica tions. Lab Interpretation (test Normal code = 53951-8) [facility]"
[2021-05-17 23:55] LABS: Urine Blood Trace-lysed (Negative); Urine Glucose 2+ (Negative); Urine Protein Negative (Negative); Urine pH 6.5 (5.0-7.0)
[2021-05-18 00:42] LABS: Absolute Lymphocytes (CBC) 2.3 K/uL (0.7-4.9); Basophils % 0.8 % (0-1.3); Hematocrit 44.6 % (36.0-45.0); MPV 9.4 fL (7.6-11.3); RBC Red Blood Cell Count 4.94 M/uL (3.86-4.86)
[2021-05-18 00:48] LABS: Urine Bacteria >50 /HPF (<20); Urine RBC <5 /HPF (NONE SEEN); Urine Urothelial Cells <5 /HPF (NONE SEEN)
[2021-05-18] MEDS ORDERED: CEFTRIAXONE 1000 MG/VIAL ONE (00:52)
[2021-05-18] MEDS ORDERED: NA CHLORIDE 0.9% 500 ML ONE (00:53)
[2021-05-18] MEDS ORDERED: ONDANSETRON 4 MG/2 ML VIAL ONE (00:54)
[2021-05-18] MEDS ORDERED: MORPHINE 4 MG/ML SYR ONE (00:54)
[2021-05-18 01:07] LABS: Albumin 2.7 g/dL (3.4-5.0); Bilirubin Total 0.4 mg/dL (0.2-1.0); Potassium 3.3 mmol/L (3.5-5.1); Protein, Total 6.9 g/dL (6.4-8.2)
[2021-05-18] MEDS ORDERED: INSULIN -REGULAR HUMAN 50 UNIT/0.5 ML ML ONE (01:15)
[2021-05-18] MEDS ORDERED: NA CHLORIDE 0.9% 1,000 ML ONE (01:48)
--- NOTE | 2021-05-18 02:58 | ER ---
Nurse's Notes [facility] Name: Karen Shah Age: 51 yrs Sex: Female : 1970 Arrival Date: 05/17/2021 Time: 23:30 Bed 20 Private MD: Diagnosis: Hyperglycemia, unspecified;UTI/ Urinary tract infection, site not specified Presentation: 05/17 23:39 Chief complaint: Patient states: she has been having painful urination since Monday. [facility] Coronavirus screen: At this time, unable to obtain information related to travel outside the [place] At this time, the client does not indicate any symptoms associated with coronavirus-19. Ebola Screen: No symptoms or risks identified at this time. Initial Sepsis Screen: Does the patient meet any 2 criteria? HR > 90 bpm. No. Patient's initial sepsis screen is negative. Does the patient have a suspected source of infection? Yes: Dysuria/Frequency/Urgency/UTI. Risk Assessment: Do you want to hurt yourself or someone else? Patient reports no desire to harm self or others. Onset of symptoms was May 14, 2021. 23:39 Method Of Arrival: Wheelchair [facility] 23:39 Acuity: ARIEL 4 5 Triage Assessment: 23:43 General: Appears in no apparent distress. Behavior is cooperative. Pain: Complains of 5 pain in pain with urination. Neuro: No deficits noted. Level of Consciousness is awake, alert, Oriented to person, place, time, situation. Cardiovascular: No deficits noted. Capillary refill < 3 seconds Patient's skin is warm and dry. Respiratory: No deficits noted. Airway is patent Trachea midline Respiratory effort is even, unlabored. GI: No deficits noted. : Reports pain with urination. EMS MANAGER: 05/18 03:15 LMP 03/2021 sm5 Historical: - Allergies: 05/17 23:42 Adhesives; sm5 23:42 Toradol; sm5 23:42 tramadol; sm5 - PMHx: 23:42 angina pectoris; CAD; Cerebrovascular accident; Cerebrovascular accident; CVA; Diabetes sm5 - IDDM; High Cholesterol; Hypertension; Myocardial infarction; Right AKA; Seizures; - PSHx: 23:42 CABG x 2; section; right AKA; sm5 - Immunization history:: Adult Immunizations up to date. - Social history:: Smoking status: Patient reports the use of cigarette tobacco products. Screenin:41 Abuse screen: Denies threats or abuse. Denies injuries from another. Nutritional 5 screening: No deficits noted. Tuberculosis screening: No symptoms or risk factors identified. Fall Risk No fall in past 12 months (0 pts). No secondary diagnosis (0 pts). No IV (0 pts). Ambulatory Aid- Crutches/Cane/Walker (15 pts). Gait- Normal/Bed Rest/Wheelchair (0 pts) Mental Status- Oriented to own ability (0 pts). Total Mccall Fall Scale indicates No Risk (0-24 pts). Assessment: 05/18 00:30 Reassessment: see triage assessment. 5 01:30 Reassessment: No changes from previously documented assessment. 5 02:30 Reassessment: No changes from previously documented assessment. [facility] Vital Signs: 05/17 23:39 BP 154 / 87; Pulse 110; Resp 20; Temp 98.3(TE); Pulse Ox 98% ; Weight 51.71 kg; Height [facility] 5 ft. 4 in. (162.56 cm); Pain 10/10; 05/18 01:30 BP 142 / 74; Pulse 86; Resp 17; Pulse Ox 98% on R/A; sm5 02:30 BP 133 / 72; Pulse 88; Resp 18; Pulse Ox 99% on R/A; sm5 05/17 23:39 Body Mass Index 19.57 (51.71 kg, 162.56 cm) [facility] ED Course: 05/17 23:30 Patient arrived in ED. bp1 23:31 Quique Rivera NP is PHCP. pm1 23:31 Anatoly Ryan MD is Attending Physician. pm1 23:39 Marietta Son RN is Primary Nurse. sm5 23:41 Triage completed. sm5 23:43 Arm band placed on right wrist. sm5 23:43 Patient has correct armband on for positive identification. Bed in low position. Call [facility] light in reach. Side rails up X2. 05/18 00:14 Urine Microscopic Only Sent. sm5 00:15 Urine Microscopic Only Sent. sm5 00:35 Inserted saline lock: 24 gauge in left forearm, using aseptic technique. Missed ds4 attempt(s): 22 gauge in left forearm. Bleeding controlled, band aid applied, catheter tip intact. 01:06 CT Head Brain wo Cont In Process Unspecified. EDMS 03:15 No provider procedures requiring assistance completed. IV discontinued, intact, sm5 bleeding controlled, No redness/swelling at site. Pressure dressing applied. Administered Medications: 01:02 Drug: NS 0.9% 500 ml Route: IV; Rate: bolus; Site: left forearm; 5 01:30 Follow up: IV Status: Completed infusion; IV Intake: 500ml 5 01:03 Drug: Rocephin (cefTRIAXone) 1 grams Route: IV; Rate: calculated rate; Site: left sm5 forearm; 01:13 Follow up: Response: No adverse reaction; IV Status: Completed infusion; IV Intake: [id number] 01:04 Drug: Zofran (Ondansetron) 4 mg Route: IVP; Site: left forearm; 5 03:17 Follow up: Response: No adverse reaction 5 01:06 Drug: morphine 4 mg Route: IVP; Site: left forearm; sm5 03:17 Follow up: Response: Pain is decreased 5 01:19 Drug: Insulin Regular Human 10 units {Co-Signature: lp1 (Dottie Ahumada RN).} Route: IVP; 5 Site: left forearm; 03:17 Follow up: Response: Blood sugar is lowered 5 01:50 Drug: NS 0.9% 1000 ml Route: IV; Rate: 1000 ml; Site: left forearm; sm5 02:30 Follow up: IV Status: Completed infusion; IV Intake: 1000ml 5 Intake: 01:13 IV: 10ml; Total: 10ml. sm5 01:30 IV: 500ml; Total: 510ml. sm5 02:30 IV: 1000ml; Total: 1510ml. 5 Outcome: 02:57 Discharge ordered by MD. pm1 03:16 Discharged to home via wheelchair, with significant other. 5 03:16 Condition: good 03:16 Discharge instructions given to patient, Instructed on discharge instructions, follow up and referral plans. medication usage, Demonstrated understanding of instructions, follow-up care, medications, Prescriptions given X 2. 03:18 Patient left the ED. 5 Addendum: 05/21/2021 07:13 Addendum: Culture Results: Positive urine culture. No further action required. Bacteria e b sensitive to prescribed antibiotic. Signatures: Dispatcher [employer] Sonu Gomez ds4 Quique Rivera, JER ASSOCIATE PROFESSOR OF KINESIOLOGY pm1 Vanessa Kolb Brittany bp1 Mazur, Sarah, RN RN sm5 Dottie Ahumada RN lp1
--- NOTE | 2021-05-18 02:58 | EDPHYS ---
Physician Documentation [facility] Name: Karen Shah Age: 51 yrs Sex: Female : 1970 Arrival Date: 05/17/2021 Time: 23:30 Bed 20 Private MD: ED Physician Anatoly Ryan HPI: 05/17 23:49 This 51 yrs old Female presents to ER via Wheelchair with complaints of Pain pm1 With Urination. 23:49 The patient presents with urinary symptoms, dysuria. Onset: The symptoms/episode pm1 began/occurred yesterday. Modifying factors: The symptoms are alleviated by nothing, the symptoms are aggravated by urinating, Hyperglycemia and yeast infection. Associated signs and symptoms: Pertinent negatives: diarrhea, fever, nausea, vomiting. Severity of symptoms: in the emergency department the symptoms are unchanged. The patient has been recently seen at the [facility] Emergency Department, for similar complaints labs were performed, was given a prescription for antibiotics, UTI and prescribed Cipro. Patient does not recall taking Cipro since ER visit on 05/15. Patient also complains slurred speech for 1 month and would like a CT scan of her brain. 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 - Social history:: Smoking status: Patient reports the use of cigarette tobacco products. ROS: 23:49 Positive for burning with urination. pm1 23:49 Constitutional: Negative for fever, chills, and weight loss, Cardiovascular: Negative for chest pain, palpitations, and edema, Respiratory: Negative for shortness of breath, cough, wheezing, and pleuritic chest pain, Abdomen/GI: Negative for abdominal pain, nausea, vomiting, diarrhea, and constipation, MS/Extremity: Negative for injury and deformity, Skin: Negative for injury, rash, and discoloration. 23:49 Neuro: Positive for speech changes, Negative for altered mental status, dizziness, headache, visual changes. 23:49 All other systems are negative. Exam: 23:49 Constitutional: This is a well developed, well nourished patient who is awake, alert, pm1 and in no acute distress. Head/Face: Normocephalic, atraumatic. 23:49 Back: No spinal tenderness. No costovertebral tenderness. Full range of motion. Skin: Warm, dry with normal turgor. Normal color with no rashes, no lesions, and no evidence of cellulitis. MS/ Extremity: Pulses equal, no cyanosis. Neurovascular intact. Full, normal range of motion. 23:49 Eyes: Exam is negative for acute changes, Extraocular movements: no acute changes, Conjunctiva: no acute changes, no injection. 23:49 ENT: Exam is negative for acute changes, Mouth: no acute changes, Lips: normal, moist, Oral mucosa: normal, pink and intact, moist. 23:49 Cardiovascular: Rate: tachycardic, actual rate is 110 bpm, Rhythm: regular, Pulses: no pulse deficits are appreciated. 23:49 Respiratory: Exam negative for acute changes, the patient does not display signs of respiratory distress, Respirations: normal, Breath sounds: are clear throughout. 23:49 Abdomen/GI: Inspection: abdomen appears normal, Palpation: abdomen is soft and non-tender, in all quadrants. 23:49 Neuro: Exam negative for acute changes, Orientation: is normal, Mentation: is normal. Vital Signs: 23:39 BP 154 / 87; Pulse 110; Resp 20; Temp 98.3(TE); Pulse Ox 98% ; Weight 51.71 kg; Height sm5 5 ft. 4 in. (162.56 cm); Pain 10/10; 05/18 01:30 BP 142 / 74; Pulse 86; Resp 17; Pulse Ox 98% on R/A; sm5 02:30 BP 133 / 72; Pulse 88; Resp 18; Pulse Ox 99% on R/A; sm5 05/17 23:39 Body Mass Index 19.57 (51.71 kg, 162.56 cm) 5 MDM: 05/17 23:38 Patient medically screened. pm1 05/18 02:54 ED course: Anion gap normal = 11. Patient is hyperglycemic without dka. Patient's pm1 glucose improved with insulin and fluids given in the ER. 02:54 Counseling: I had a detailed discussion with the patient and/or guardian regarding: the pm1 historical points, exam findings, and any diagnostic results supporting the discharge/admit diagnosis, lab results, radiology results, the need for outpatient follow up, to return to the emergency department if symptoms worsen or persist or if there are any questions or concerns that arise at home. 02:59 ED course: Urine culture from 05/15 shows sensitivity to cipro. Instructed patient to pm1 start taking the Cipro that was prescribed previously. 03:11 Data reviewed: vital signs. Data interpreted: Pulse oximetry: on room air is 98 %. pm1 Interpretation: normal. 05/17 23:49 Order name: Urine Microscopic Only pm1 05/17 23:49 Order name: CBC with Diff; Complete Time: 00:47 pm1 05/17 23:49 Order name: CMP; Complete Time: 01:10 pm1 05/17 23:49 Order name: Urine Microscopic Only; Complete Time: 00:54 EDMS 05/17 23:54 Order name: Urine Dipstick-Ancillary; Complete Time: 00:17 EDMS 05/18 00:49 Order name: Urine Culture EDMS 05/17 23:45 Order name: CT Head Brain wo Cont pm1 05/18 02:03 Order name: Glucose, Ancillary Testing; Complete Time: 02:51 EDMS 05/18 03:06 Order name: Glucose, Ancillary Testing EDMS 05/17 23:49 Order name: Urine Dipstick-Ancillary (obtain specimen); Complete Time: 00:15 pm1 05/17 23:49 Order name: IV Saline Lock; Complete Time: 00:34 pm1 Administered Medications: 01:02 Drug: NS 0.9% 500 ml Route: IV; Rate: bolus; Site: left forearm; sm5 01:30 Follow up: IV Status: Completed infusion; IV Intake: 500ml sm5 01:03 Drug: Rocephin (cefTRIAXone) 1 grams Route: IV; Rate: calculated rate; Site: left sm5 forearm; 01:13 Follow up: Response: No adverse reaction; IV Status: Completed infusion; IV Intake: [id number] 01:04 Drug: Zofran (Ondansetron) 4 mg Route: IVP; Site: left forearm; sm5 03:17 Follow up: Response: No adverse reaction sm5 01:06 Drug: morphine 4 mg Route: IVP; Site: left forearm; sm5 03:17 Follow up: Response: Pain is decreased 5 01:19 Drug: Insulin Regular Human 10 units {Co-Signature: lp1 (Dottie Ahumada RN).} Route: IVP; sm5 Site: left forearm; 03:17 Follow up: Response: Blood sugar is lowered sm5 01:50 Drug: NS 0.9% 1000 ml Route: IV; Rate: 1000 ml; Site: left forearm; sm5 02:30 Follow up: IV Status: Completed infusion; IV Intake: 1000ml 5 Disposition: 03:18 Co-signature as Attending Physician, Anatoly Ryan MD I agree with the assessment and kdr plan of care. Disposition Summary: 05/18/21 02:57 Discharge Ordered Location: Home pm1 Problem: new pm1 Symptoms: have improved pm1 Condition: Stable pm1 Diagnosis - Hyperglycemia, unspecified pm1 - UTI/ Urinary tract infection, site not specified pm1 Followup: pm1 - With: Emergency Department - When: As needed - Reason: Worsening of condition Followup: pm1 - With: Private Physician - When: 2 - 3 days - Reason: Recheck today's complaints, Continuance of care, Re-evaluation by your physician Discharge Instructions: - Discharge Summary Sheet pm1 - Hyperglycemia pm1 - Urinary Tract Infection, Adult pm1 - Blood Glucose Monitoring, Adult pm1 - Diabetes Mellitus and Nutrition, Adult pm1 Forms: - Medication Reconciliation Form pm1 - Thank You Letter pm1 - Antibiotic Education pm1 - Prescription Opioid Use pm1 Prescriptions: - Pyridium 200 mg Oral Tablet - take 1 tablet by ORAL route every 8 hours for 3 days; 9 tablet; Refills: 0, pm1 Product Selection Permitted - Cipro 500 mg Oral Tablet - take 1 tablet by ORAL route every 12 hours for 7 days; 14 tablet; Refills: 0, pm1 Product Selection Permitted Signatures: Dispatcher [employer] EDAnatoly Mejía MD MD kdr Marinas, Patrick, NP SYNCHRONOUS MOTOR ASSEMBLER pm1 Marietta Son, RN RN sm5 Dottie Ahumada RN lp1
[2021-05-18 03:29] VITALS: TEMP 98.3
[2021-05-18 03:43] VITALS: BP 133/72; O2SAT 99
--- NOTE | 2021-05-18 15:02 | RAD REPORT ---
EXAM DESCRIPTION: CT - Head Brain Wo Cont - 05/18/2021 6:43 am CLINICAL HISTORY: 51 years, Female, slurred speech for 1 month COMPARISON: 09/28/2020 FINDINGS: Multiple transaxial tomograms of the brain were obtained from the base of the skull to the vertex without contrast. 2-D multiplanar reformats and the coronal and sagittal plane were performed and reviewed. This exam was performed according to our departmental dose-optimization protocol, which includes auto mated exposure control, adjustment of the mA and/or kV according to patient size and/or use of iterat mayito reconstruction technique. Brain parenchyma as well as the burgess and white matter differentiation demonstrate to be unremarkable. There is no midline shift and/or mass effect. There is no evidence for acute hemorrhage. No focal ar eas of hypodensities. Lateral ventricles and cisterns displace normal appearance. No intra or ext ra axial fluid collections were seen. The calvarium is intact with no evidence for fracture. The visu alized portions of the paranasal sinuses and orbits demonstrate to be clear. IMPRESSION: NO ACUTE INTRACRANIAL HEMORRHAGE. UNREMARKABLE CT SCAN OF THE HEAD WITHOUT CONTRAST. Electronically signed by: Juanjose Rodriguez MD 05/18/2021 1:37 AM AUTOMATIC OUTSOLE CUTTER Due to temporary technical issues with the PACS/Fluency reporting system, reports are being signed by the in house radiologists without review as a courtesy to insure prompt reporting. The interpreting radiologist is fully responsible for the content of the report.
== END 2021-05-18 03:18 | disposition home or self-care (01) ==
LOC: ER 23:27
DX: N39.0 Urinary tract infection, site not specified (principal); E11.65 Type 2 diabetes mellitus with hyperglycemia; I10 Essential (primary) hypertension; Z72.0 Tobacco use; Z95.1 Presence of aortocoronary bypass graft
CPT/HCPCS: 96361; 87088; 85025; 87086; 36415; 82947 ×2; 87077; 87186; 80053; 70450; 96375; 96374; 99284; J7040; J7030; J2405; 81003; 81015

== ENCOUNTER 2021-05-25 17:32 | Emergency (ER) | payer OTHER ==
--- OUTSIDE RECORDS SUMMARY | 2021-05-25 17:54 | XMS REPORT | Continuity of Care Document ---
:1970 Author Organization [facility] t Address [address] [place] [address] Care Team Providers Name Role Phone Igor [...] Expiration Date Vero neal MEDICARE PART A [id number] 2017 \\T\\ B 00:00:00 Problems Condition Condition Condition Status Onset Resolution Last Treating Co mments Source Name Details Category Date Date Treatment Clinician Date UTI UTI Disease Active Univers (urinary (urinary 8-20 ity of tract tract 00:00: [place] infection) infection) 00 Id dical Branch Dizziness Dizziness Disease Active Uni vers 8-20 ity of 00:00: [place] 00 Medical Branch Weakness Weakness Disease Active Unive rs 8-20 ity of 00:00: [place] 00 [facility] Branch CAD in CAD in Disease Active Univers hughes hughes 7-05 ity of artery artery 00:00: [place] [facility] Hypoglycem Hypoglycem Disease Active U nivers ia ia 6-11 ity of 00:00: [place] 00 [facility] 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 5-06 it y of on on 00:00: [place] Medical Branch Poor Poor Disease Active Univers [...] 00:00: [place] involving involving 00 Medi blanquita hughes hughes Branch coronary coronary artery of artery of [facility] hug[facility] heart heart without without angina angina pectoris [...] 00:00: [place] involving involving 00 Medi blanquita [place] hug[place] Branch coronary coronary artery of artery of [facility] heart heart without without angina angina pectoris pectoris PAD PAD Disease Active Univers (periphera (periphera 3-09 it y of l artery l artery 00:00: [place] disease) disease) 00 Medica l Branch GARY GARY Disease Active Overview: Univer s (stress (stress 02-02 Formattin ity o f urinary urinary 00:00: g of this [place] incontinen incontinen 00 note Me dical ce, ce, might be Branch female) female) different from the original. Added automatic ally from request for surgery [id number] GERD GERD Disease Active Univers (gastroeso (gastroeso it y of phageal phageal [place] reflux reflux Medical disease) disease) Branch DM DM Disease Active Univers (diabetes (diabetes ity of mellitus) mellitus) [facility] Depression Depression Disease Active U nivers ity of [facility] CVA CVA Disease Active Univers (cerebral (cerebral ity of vascular vascular [place] accident) accident) [facility] CHF CHF Disease Active Univers (congestiv (congestiv it y of e heart e heart [place] failure) failure) [facility] Anxiety Anxiety Disease Active Univers ity of [facility] Angina Angina Disease Active Univers pectoris pectoris ity of [facility] H/O right H/O right Disease Active Uni vers coronary coronary ity of artery artery [place] stent stent Medical placement placement Bran ch Hyperlipid Hyperlipid Disease Active U nivers emia, emia, ity of unspecifie [place]specifie [place] d d Medical hyperlipid hyperlipid Br anch emia type emia type Essential Essential Disease Active Uni vers hypertensi hypertensi it y [facility], benign [facility] Hx of CABG Hx of CABG Disease Active U nivers ity of [facility] Migraines Migraines Disease Active Uni vers ity of [facility] Seizures Seizures Disease Active Unive rs ity of [facility] Unilateral Unilateral Disease Active U nivers AKA, right AKA, right it y of [facility] High High Disease Active Univers cholestero cholestero it y of l l [facility] HTN HTN Disease Active Univers (hypertens (hypertens it y of ion) ion) [facility] Unilateral Unilateral Disease Active U nivers AKA, right AKA, right it y of [facility] Unilateral Unilateral Disease Active U nivers AKA, right AKA, right it y of [facility] History of History of Problem Active C [...] Lukes - disorder disorder 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 a l [facility] 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 [facility]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 [...] ent graft of graft of Clinic s [facility] hughes heart with heart with angina angina pectoris pectoris Dependent Dependent Problem Active [facility] on [facility] - wheelchair wheelchair [facility] History of History of Problem Active [facility] right right [facility] - above knee above knee Me moria amputation amputation l [facility] Allergies, Adverse Reactions, [...] History of tobacco Cigarette Smoker [facility] Exposure to Not sure [place] of SARS-CoV-2 (event) [facility] Alcohol intake 2021-02-12 2021-02-12 Ex-drinker [facility] 00:00:00 00:00:00 (finding) [facility] Education 2021-01-15 2021-01-15 12 [facility] 00:00:00 00:00:00 [place] Medical [facility] History SDOH 2020-05-08 2020-05-08 99 University o f Alcohol Frequency 00:00:00 00[facility]00:00 [facility] SDOH 2020-05-08 2020-05-08 99 University o f Alcohol Std Drinks 00:00:00 00:00:00 [facility] Branch History [facility] 2020-05-08 2020-05-08 99 [place] o f Alcohol Binge 00:00:00 00:00:00 [facility] al Branch Tobacco Comment 2020-04-03 2020-04-03 smoking since 12 Uni versity of 00:00:00 00:00:00 years old [facility] Alcohol Comment 2019-10-11 2019-10-11 rare Universit y of 00:00:00 00:00:00 [facility] Cigarettes smoked 2018-02-21 2018-02-21 Univers ity of current (pack per 00:00:00 00:00:00 [facility] ) - Reported Branch Tobacco use and 2018-02-21 2018-02-21 Never used Universit y of exposure 00:00:00 00:00:00 [facility] Sex [birth year] At [birth year] Universit y of 00:00:00 00:00:00 [facility] Smoking Status Start Date Stop Date Source Current every day smoker 2018-02-21 00:00:00 Uni versity of [facility] Medications Ordered Filled Start Stop Current Ordering Indication Dosage Frequency Signature Comments Components Source Medication Medication Date Date Medication? Clinician (SIG) Name Name MIRTAZAPINE 2020-05 Yes [id number] 15mg TAKE 1 Univers 15 mg 2-20 TABLET BY ity of tablet 00:00: MOUTH AT [place] 00 BEDTIME Medical Branch cefTRIAXone 2020- No 1000mg 1,000 mg, Univers (ROCEPHIN) 02-12 IV ity of 1,000 mg in 22:45: 10:44 [place], [place] NaCl 0.9% 00 :00 ONCE, 1 Medical (NS) 50 mL dose, On Bran h MINI-BAG Mon02/12/21 at 1745, Administer over 30 Minutes, 50 mL
Reas on for Anti-Infec tive: Empiric Therapy for Suspected Infection< br>Empiric Therapy Site: Urine
D uration of therapy: 72 hours cefTRIAXone No 1000mg 1,000 mg, Univers (ROCEPHIN) 02-12 IV ity of 1,000 mg in 22:45: 10:44 [place], [place] NaCl 0.9% 00 :00 ONCE, 1 [...] ity of human 21:30: 21:29 Sandra [place] (HUMULIN R) 00 :00 ONCE, 1 Medic al injection dose, On Branch 10 Units 02/12/21 at 1630, Routine NaCl 0.9% 2020- No 1000mL at 999 Uni vers (NS) bolus 02-12 mL/hr, ity of infusion 21:30: 22:08 1,000 mL, Raffy as 1,000 mL 00 :00 [facility], 1 dose, On Mon02/12/21 at 1630, [...] 1,000 mL 00 :00 IV Medical Piggyback, [place] ONCE, 1 dose, On Mon02/12/21 at 1630, STAT cefpodoxime 2020- No [id number] 100mg Take 1 Univers 100 mg 02-12 tablet by ity of tablet 00:00: 04:59 mouth 2 [place] 00 :00 (two) Medical times [place] daily for 7 days. cefpodoxime 2020- No [id number] 100mg Take 1 Univers 100 mg 02-12 tablet by ity of tablet 00:00: 04:59 mouth 2 [place] 00 :00 (two) Medical times [place] daily for 7 days. glipiZIDE 2020- No [id number] 10mg Take 1 U nivers 10 mg 01-18 tablet by ity of tablet 00:00: 04:59 mouth [place] 00 :00 daily for Medical 30 days. [place] glipiZIDE 2020- No [id number] 10mg Take 1 U nivers 10 mg 01-18 tablet by ity of tablet 00:00: 04:59 mouth [place] 00 :00 daily for Medical 30 days. [place] glipiZIDE 2020- No [id number] 10mg Take 1 U nivers 10 mg 01-18 tablet by ity of tablet 00:00: 00:00 mouth [place] 00 :00 daily for Medical 30 days. [place] glipiZIDE Yes 10mg 10 mg, Univer s (GLUCOTROL) 01-17 Oral, ity of tablet 10 14:00: DAILY, [place] mg 00 First dose Medical on [place] Branch 01/17/21 at 0900, Until Discontinu ed, [...] Therapy: Other (see Comments) nicotine 2020- No [id number] 1{patch Apply 1 Univers mg/24 hr 01-1720 } Patch to ity of patch 00:00: 04:59 area(s) [place] 00 :00 every 24 Medical (twenty-fo Branch ur) hours for 28 days. nicotine 14 2020- No [id number] 1{patch Apply 1 Univers mg/24 hr 01-1720 } Patch to ity of patch 00:00: 04:59 area(s) [place] 00 :00 every 24 Medical (twenty-fo Branch ur) hours for 28 days. nicotine 14 2020- No [id number] 1{patch Apply 1 Univers mg/24 hr 01-1720 } Patch to ity of patch 00:00: 04:59 area(s) [place] 00 :00 every 24 Medical (twenty-fo Branch ur) hours for 28 days. nicotine 14 2020- No [id number] 1{patch Apply 1 Univers mg/24 hr 01-1720 } Patch to ity of patch 00:00: 04:59 area(s) [place] 00 :00 every 24 Medical (twenty-fo Branch ur) hours for 28 days. nicotine 2020- No [id number] 1{patch Apply 1 Univers mg/24 hr 01-1720 } Patch to ity of patch 00:00: 04:59 area(s) [place] 00 :00 every 24 Medical (twenty-fo Branch ur) hours for 28 days. ciprofloxac 2020- No [id number] 500mg Take 1 Univers in HCl 500 01-17 tablet by ity of mg tablet 00:00: 04:59 mouth [place] 00 :00 every 12 Medical (twelve) Branch hours for 7 days. ciprofloxac No [id number] 500mg Take 1 Univers in HCl 500 01-17 tablet by ity of mg tablet 00:00: 04:59 mouth [place] 00 :00 every 12 Medical (twelve) Branch hours for 7 days. KCL 2020- No 60meq 60 mEq, Univers (KLOR-CON 01-16 Oral, ity of M20) tablet 16:00: 16:43 ONCE, 1 [place] 60 mEq 00 :00 dose, [facility] 01/16/21 at Branch 1100, Routine cefTRIAXone Yes 1000mg 1,000 mg, Univers (ROCEPHIN) 01-16 IV ity of 1,000 mg in 14:30: Piggyback, [place] NaCl 0.9% 00 Q24H ABX, Medic al (NS) 50 mL First dose Bra [facility] MINI-BAG on [place] [facility] 01/16/21 at 0930, Until Discontinu ed, Administer over 30 Minutes, 50 mL
Reas on for Anti-Infec tive: Empiric Therapy for Suspected Infection< br>Empiric Therapy Site: Urine
D uration of therapy: 7 days pantoprazol Yes 40mg 40 mg, Univ ers e 01-16 Oral, ity of (PROTONIX) 14:00: DAILY, [place] EC tablet 00 First dose Medi blanquita 40 mg on [facility] 01/16/21 at 0900, Until Discontinu ed, Routine ezetimibe Yes 10mg 10 mg, Univer s (ZETIA) 01-16 Oral, ity of tablet 10 14:00: DAILY, [place] mg 00 First dose Medical on [facility] 01/16/21 at 0900, Until Discontinu ed, Routine clopidogreL Yes 75mg 75 mg, Univ ers (PLAVIX) 01-16 Oral, ity of tablet 75 14:00: DAILY, [place] mg 00 First dose Medical on [facility] 01/16/21 at 0900, Until Discontinu ed, Routine aspirin Yes 81mg 81 mg, Univers chewable 01-16 Oral, ity of tablet 81 14:00: DAILY, [place] mg 00 First dose Medical on [facility] 01/16/21 at 0900, Until Discontinu ed, Routine fluconazole 2020- No 150mg 150 mg, U nivers (DIFLUCAN) 01-16 Oral, ity of tablet 150 14:00: 20:40 DAILY, [place] mg 00 :05 First dose Medical on [facility] 01/16/21 at 0900, Until Discontinu ed, TRANG
Re ason for Anti-Infec tive: Documented Infection< br>Documen anthony Infection Site: Urine
D uration of Therapy: Other (see Comments) Sliding Yes Subcutaneo Univ ers Scale 01-16 us, TID ity of Insulin - 13:00: MEALS, [place] Lispro 00 First dose Medical (HumaLOG) + (after [place] [facility] last Testing modificati on) on [place] [facility] 01/16/21 at 0800, Until Discontinu ed, Routine insulin NPH 15U 15 Units, Univers and regular 01-16 Subcutaneo i ty of human 70-30 02:30: 01:47 , ONCE, [place] (HUMULIN 00 :00 1 dose, Medical 70-30 U-100 [facility] INSULIN) 01/15/21 at 100 unit/mL 2130, (70-30) Routine injection 15 Units mirtazapine Yes 15mg 15 mg, Univ ers (REMERON) 01-16 Oral, QHS, ity of tablet 15 02:00: First dose [place] mg 00 on Mon [facility] 01/15/21 at Branch 2100, Until Discontinu ed, Routine atorvastati Yes 80mg 80 mg, Univ ers n (LIPITOR) 01-16 Oral, QHS, it y of tablet 80 02:00: First dose [place] mg 00 on Mon [facility] 01/15/21 at Branch 2100, Until Discontinu ed, Routine gabapentin Yes 800mg 800 mg, Uni vers (NEURONTIN) 01-16 Oral, TID, it y of tablet 800 01:00: First dose [place] mg 00 on Mon [facility] 01/15/21 at Branch 2000, Until Discontinu ed, Routine nicotine Yes 1{patch 1 Patch, Un cali (NICODERM) 01-15 } Topical, ity o f 14 mg/24 hr 23:15: Administer [place] patch 1 00 over 24 Medical Patch Hours, [place] Q24H, First dose on Mon01/15/21 at 1815, Until Discontinu ed, Routine insulin NPH Yes 40U 40 Units, U nivers and regular 8- Subcutaneo it y of human 70-30 22:45: us, BIDAC, [place] (HUMULIN 00 First dose Medic al 70-30 [...] of Insulin - 22:45: 01:18 MEALS, [place] Lispro 00 :16 First dose Medical (HumaLOG) [...] 01-15 IV Push, ity of mg 21:58: Q4HPEminence, [place] 52 Starting Medical Fri [place] 01/15/21 at 1658, Until Discontinu ed, Routine, Pain (scale 7-10) ondansetron 0 Yes 4mg 4 mg, Slow Univers (ZOFRAN 8- IV Push, ity of (PF)) 21:32: Q6HPRCampo, [place] injection 4 17 Starting Medi blanquita [...] Oral, ity of (TYLENOL) 21:31: Q6HPRN, [place] tablet 650 47 Starting Medic al mg Fri Branch 01/15/21 at 1631, Until Discontinu ed, Routine, Pain (scale 1-3) gabapentin 2020-0 Yes [id number] 800mg Take 1 Univers 800 mg 8-20 tablet by ity of tablet 00:00: mouth (three) Medical times Branch daily. gabapentin 2020-0 Yes [id number] 800mg Take 1 Univers 800 mg 8-20 tablet by ity of tablet 00:00: mouth (three) Medical times Branch daily. gabapentin 2020-0 Yes [id number] 800mg Take 1 Univers 800 mg 8-20 tablet by ity of tablet 00:00: mouth ([facility]) Medical times Branch daily. gabapentin 2020-0 Yes [id number] 800mg Take 1 Univers 800 mg 8-20 tablet by ity of tablet 00:00: mouth (three) Medical times Branch daily. gabapentin 2020-0 Yes [id number] 800mg Take 1 Univers 800 mg 8-20 tablet by ity of tablet 00:00: mouth (three) Medical times Branch daily. gabapentin 2020-0 Yes [id number] 800mg Take 1 Univers 800 mg 8-20 tablet by ity of tablet 00:00: mouth (three) Medical times Branch daily. gabapentin 2020-0 Yes [id number] 800mg Take 1 Univers 800 mg 8-20 tablet by ity of tablet 00:00: mouth (three) Medical times Branch daily. gabapentin 2020-0 Yes [id number] 800mg Take 1 Univers 800 mg 8-20 tablet by ity of tablet 00:00: mouth (three) Medical times Branch daily. gabapentin 2020-0 Yes [id number] 800mg Take 1 Univers 800 mg 8-20 tablet by ity of tablet 00:00: mouth (three) Medical times Branch daily. gabapentin Yes [id number] 800mg Take 1 Univers 800 mg 8-20 tablet by ity of tablet 00:00: mouth 3 [place] 00 (three) Medical times Branch daily. ondansetron Yes [id number] 4mg Take 1 Univers 4 mg 8-06 tablet by ity of disintegrat 00:00: mouth [place] ing tablet 00 every 8 Medica l (eight) Branch hours as needed for Nausea and Vomiting (N/V). ondansetron Yes [id number] 4mg Take 1 Univers 4 mg 8-06 tablet by ity of disintegrat 00:00: mouth [place] ing tablet 00 every 8 Medica l (eight) Branch hours as needed for Nausea and Vomiting (N/V). ondansetron Yes [id number] 4mg Take 1 Univers 4 mg 8-06 tablet by ity of disintegrat 00:00: mouth [place] ing tablet 00 every 8 Medica l (eight) Branch hours as needed for Nausea and Vomiting (N/V). ondansetron Yes [id number] 4mg Take 1 Univers 4 mg 8-06 tablet by ity of disintegrat 00:00: mouth [place] ing tablet 00 every 8 Medica l (eight) Branch hours as needed for Nausea and Vomiting (N/V). ondansetron Yes [id number] 4mg Take 1 Univers 4 mg 8-06 tablet by ity of disintegrat 00:00: mouth [place] ing tablet 00 every 8 Medica l (eight) Branch hours as needed for Nausea and Vomiting (N/V). glucagon 3 Yes [id number] 1{spray Use 1 Univers mg/actuatio 8-06 } [place] in ity of n [place] 00:00: each 00 nostril as Medical needed Branch (hypoglyce filomena). ondansetron Yes [id number] 4mg Take 1 Univers 4 mg 8-06 tablet by ity of disintegrat 00:00: mouth [place] ing tablet 00 every 8 Medica l (eight) Branch hours as needed for Nausea and Vomiting (N/V). glucagon 3 Yes [id number] 1{spray Use 1 Univers mg/actuatio 8-06 } [place] in ity of n [place] 00:00: each [place] 00 nostril as Medical needed Branch (hypoglyce filomena). ondansetron Yes [id number] 4mg Take 1 Univers 4 mg 8-06 tablet by ity of disintegrat 00:00: mouth [place] ing tablet 00 every 8 Medica l (eight) Branch hours as needed for Nausea and Vomiting (N/V). glucagon 3 Yes [id number] 1{spray Use 1 Univers mg/actuatio 8-06 } [place] in ity of n [place] 00:00: each [place] 00 nostril as Medical needed Branch (hypoglyce filomena). ondansetron Yes [id number] 4mg Take 1 Univers 4 mg 8-06 tablet by ity of disintegrat 00:00: mouth [place] ing tablet 00 every 8 Medica l (eight) Branch hours as needed for Nausea and Vomiting (N/V). ondansetron Yes [id number] 4mg Take 1 Univers 4 mg 8-06 tablet by ity of disintegrat 00:00: mouth [place] ing tablet 00 every 8 Medica l (eight) Branch hours as needed for Nausea and Vomiting (N/V). ondansetron Yes [id number] 4mg Take 1 Univers 4 mg 8-06 tablet by ity of disintegrat 00:00: mouth [place] ing tablet 00 every 8 Medica l (eight) Branch hours as needed for Nausea and Vomiting (N/V). ondansetron Yes [id number] 4mg Take 1 Univers 4 mg 8-06 tablet by ity of disintegrat 00:00: mouth [place] ing tablet 00 every 8 Medica l (eight) Branch hours as needed for Nausea and Vomiting (N/V). ondansetron Yes [id number] 4mg Take 1 Univers 4 mg 8-06 tablet by ity of disintegrat 00:00: mouth [place] ing tablet 00 every 8 Medica l (eight) Branch hours as needed for Nausea and Vomiting (N/V). glucagon 3 2020- No [id number] 1{spray Use 1 Univers mg/actuatio 8-06 08-20 } [place] in ity of n [place] 00:00: 00:00 each [place] 00 :00 nostril as Medical needed Branch (hypoglyce filomena). glucagon 3 2020-2020- No [id number] 1{spray Use 1 Univers mg/actuatio 01-0120 } [place] in ity of n [place] 00:00: 00:00 each [place] 00 :00 nostril as Medical needed Branch (hypoglyce filomena). glucagon 3 2020- No [id number] 1{spray Use 1 Univers mg/actuatio 01-0120 } [place] in ity of n [place] 00:00: 00:00 each [place] 00 :00 nostril as Medical needed Branch (hypoglyce filomena). GABAPENTIN Yes [id number] TAKE 1 Univers 800 mg 7-23 TABLET BY ity of tablet 00:00: MOUTH [place] 00 THREE Medical TIMES Branch DAILY GABAPENTIN 2020-0 2020- No [id number] TAKE 1 Univers 800 mg 7-23 08-19 TABLET BY ity of tablet 00:00: 00:00 MOUTH [place] 00 :00 THREE Medical TIMES Branch DAILY GABAPENTIN 2020-0 2020- No [id number] TAKE 1 Univers 800 mg 7-23 08-19 TABLET BY ity of tablet 00:00: 00:00 MOUTH [place] 00 :00 THREE Medical TIMES Branch DAILY aspirin 81 0 Yes [id number] 81mg Take 1 U nivers mg chewable 7-07 tablet by ity of tablet 00:00: mouth [place] 00 daily. Medical Branch clopidogreL 0 Yes [id number] 75mg Take 1 Univers 75 mg 7-07 tablet by ity of tablet 00:00: mouth [place] 00 daily. Medical Branch aspirin 81 2020-0 Yes [id number] 81mg Take 1 U nivers mg chewable 7-07 tablet by ity of tablet 00:00: mouth [place] 00 daily. Medical Branch clopidogreL 2020-0 Yes [id number] 75mg Take 1 Univers 75 mg 7-07 tablet by ity of tablet 00:00: mouth [place] 00 daily. Medical Branch aspirin 81 2020-0 Yes [id number] 81mg Take 1 U nivers mg chewable 7-07 tablet by ity of tablet 00:00: mouth [place] 00 daily. Medical Branch clopidogreL 2020-0 Yes [id number] 75mg Take 1 Univers 75 mg 7-07 tablet by ity of tablet 00:00: mouth [place] 00 daily. Medical Branch aspirin 81 2020-0 Yes [id number] 81mg Take 1 U nivers mg chewable 7-07 tablet by ity of tablet 00:00: mouth [place] 00 daily. Medical Branch clopidogreL 2020-0 Yes [id number] 75mg Take 1 Univers 75 mg 7-07 tablet by ity of tablet 00:00: mouth [place] 00 daily. Medical Branch aspirin 81 2020-0 Yes [id number] 81mg Take 1 U nivers mg chewable 7-07 tablet by ity of tablet 00:00: mouth [place] 00 daily. Medical Branch clopidogreL 2020-0 Yes [id number] 75mg Take 1 Univers 75 mg 7-07 tablet by ity of tablet 00:00: mouth [place] 00 daily. Medical Branch aspirin 81 2020-0 Yes [id number] 81mg Take 1 U nivers mg chewable 7-07 tablet by ity of tablet 00:00: mouth [place] 00 daily. Medical Branch clopidogreL 2020-0 Yes [id number] 75mg Take 1 Univers 75 mg 7-07 tablet by ity of tablet 00:00: mouth [place] 00 daily. Medical Branch aspirin 81 2020-0 Yes [id number] 81mg Take 1 U nivers mg chewable 7-07 tablet by ity of tablet 00:00: mouth [place] 00 daily. Medical Branch clopidogreL 2020-0 Yes [id number] 75mg Take 1 Univers 75 mg 7-07 tablet by ity of tablet 00:00: mouth [place] 00 daily. Medical Branch aspirin 81 2020-0 Yes [id number] 81mg Take 1 U nivers mg chewable 7-07 tablet by ity of tablet 00:00: mouth [place] 00 daily. Medical Branch clopidogreL 2020-0 Yes [id number] 75mg Take 1 Univers 75 mg 7-07 tablet by ity of tablet 00:00: mouth [place] 00 daily. Medical Branch aspirin 81 2020-0 Yes [id number] 81mg Take 1 U nivers mg chewable 7-07 tablet by ity of tablet 00:00: mouth [place] 00 daily. Medical Branch clopidogreL 2020-0 Yes [id number] 75mg Take 1 Univers 75 mg 7-07 tablet by ity of tablet 00:00: mouth [place] 00 daily. Medical Branch aspirin 81 2020-0 Yes [id number] 81mg Take 1 U nivers mg chewable 7-07 tablet by ity of tablet 00:00: mouth [place] 00 daily. Medical Branch clopidogreL 2020-0 Yes [id number] 75mg Take 1 Univers 75 mg 7-07 tablet by ity of tablet 00:00: mouth [place] 00 daily. Medical Branch aspirin 81 2020-0 Yes [id number] 81mg Take 1 U nivers mg chewable 7-07 tablet by ity of tablet 00:00: mouth [place] 00 daily. Medical Branch clopidogreL 2020-0 Yes [id number] 75mg Take 1 Univers 75 mg 7-07 tablet by ity of tablet 00:00: mouth [place] 00 daily. Medical Branch aspirin 81 2020-0 Yes [id number] 81mg Take 1 U nivers mg chewable 7-07 tablet by ity of tablet 00:00: mouth [place] 00 daily. Medical Branch aspirin 81 2020-0 Yes [id number] 81mg Take 1 U nivers mg chewable 7-07 tablet by ity of tablet 00:00: mouth [place] 00 daily. Medical Branch clopidogreL 2020-0 Yes [id number] 75mg Take 1 Univers 75 mg 7-07 tablet by ity of tablet 00:00: mouth [place] 00 daily. Medical Branch clopidogreL 2020-0 Yes [id number] 75mg Take 1 Univers 75 mg 7-07 tablet by ity of tablet 00:00: mouth [place] 00 daily. Medical Branch aspirin 81 2020-0 Yes [id number] 81mg Take 1 U nivers mg chewable 7-07 tablet by ity of tablet 00:00: mouth [place] 00 daily. Medical Branch clopidogreL 2020-0 Yes [id number] 75mg Take 1 Univers 75 mg 7-07 [...] [place] mg 00 First dose Medical on [facility] 12/01/20 at 0900, Until Discontinu ed, Routine pantoprazol 0 Yes 40mg 40 mg, Univ ers e - Oral, ity of (PROTONIX) 14:00: DAILY, [place] EC tablet 00 First dose Medi blanquita 40 mg on [facility] 12/01/20 at 0900, Until Discontinu ed, Routine clopidogreL Yes [id number] 75mg 75 mg, Univers (PLAVIX) 12-01 Oral, ity of tablet 75 14:00: DAILY, [place] mg 00 First dose Medical on [facility] 12/01/20 at 0900, Until Discontinu ed, Routine
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 : [place] aspirin Yes [id number] 81mg 81 mg, [facility] ers chewable 12-01 Oral, ity of tablet 81 14:00: DAILY, [place] mg 00 First dose Medical on [facility] 12/01/20 at 0900, Until Discontinu ed, Routine heparin Yes 5000U 5,000 Univers (porcine) 12-01 Units, ity of injection 13:00: Subcutaneo [place] 5,000 Units 00 us, Q12H, Med ical First dose Branch on [facility] 12/01/20 at 0800, Until Discontinu ed, Routine gabapentin Yes 800mg 800 mg, Uni vers (NEURONTIN) 12-01 Oral, TID, it y of tablet 800 13:00: First dose [place] mg 00 on [facility] 12/01/20 at Branch 0800, Until Discontinu ed, Routine magnesium 2020- No 4g 4 g, IV [facility] ers sulfate in 12-01 Piggyback, it y of water 4 12:45: 14:07 ONCE, 1 [place] gram/50 mL 00 :00 dose, [facility] blanquita (8 %) IV 12/01/20 at [place] Piggyback 4 0745, g Routine insulin NPH Yes 40U 40 Units, U nivers and regular 12-01 Subcutaneo it y of human 70-30 12:30: us, BIDAC, [place] (HUMULIN 00 First dose Medic al 70-30 U-100 on [facility] INSULIN) 12/01/20 at 100 unit/mL 0730, (70-30) Until injection Discontinu 40 Units ed, Routine NaCl 0.9% 2020- No 1000mL at 20 [facility] ers (NS) IV 12-01 mL/hr, IV ity [...] of (PF)) 20:53: 20:53 TITRATE - [place] injection 44 :44 FOR Medical PROCEDURE Branch USE, 1 dose, Starting 11/30/20 at 1553, Until 11/30/20 at 1553, Routine midazolam 2020- No IV Push, Uni vers (VERSED) 11-30 TITRATE - ity o f injection 20:53: 20:53 FOR [place] 37 :37 PROCEDURE Medical USE, 1 Branch dose, Starting 11/30/20 at 1553, Until Mon11/30/20 at 1553, Routine insulin 2020- No [id number] 10U 10 Units, Univers lispro 11-30 Subcutaneo ity of (human) 18:00: 18:15 us, ONCE, [place] (HumaLOG 00 :00 1 dose, Medical U-100) Mon11/30/20 Branch injection at 1300, 10 Units Routine ezetimibe Yes [id number] 10mg Take 1 U nivers 10 mg 6-18 tablet by ity of tablet 00:00: mouth [place] 00 daily. Medical Branch furosemide 2020- Yes [id number] 1 tablet Univers 20 mg 6-18 02 as needed ity of tablet 00:00: for leg [place] swelling Medical Branch ezetimibe 2020-0 Yes [id number] 10mg Take 1 U nivers 10 mg 6-18 tablet by ity of tablet 00:00: mouth [place] 00 daily. Medical Branch furosemide 2020-0 Yes [id number] 1 tablet Univers 20 mg 6-18 02 as needed ity of tablet 00:00: for leg [place] swelling Medical Branch ezetimibe 2020-0 Yes [id number] 10mg Take 1 U nivers 10 mg 6-18 tablet by ity of tablet 00:00: mouth [place] 00 daily. Medical Branch furosemide 2020-0 Yes [id number] 1 tablet Univers 20 mg 6-18 02 as needed ity of tablet 00:00: for leg [place] swelling Medical Branch ezetimibe 2020-0 Yes [id number] 10mg Take 1 U nivers 10 mg 6-18 tablet by ity of tablet 00:00: mouth [place] 00 daily. Medical Branch furosemide 2021-0 Yes [id number] 1 tablet Univers 20 mg 6-18 02 as needed ity of tablet 00:00: for leg swelling Medical Branch ezetimibe 1-0 Yes [id number] 10mg Take 1 U nivers 10 mg 6-18 tablet by ity of tablet 00:00: mouth [place] 00 daily. Medical Branch furosemide 1-0 Yes [id number] 1 tablet Univers 20 mg 6-18 02 as needed ity of tablet 00:00: for leg swelling Medical Branch ezetimibe 1-0 Yes [id number] 10mg Take 1 U nivers 10 mg 6-18 tablet by ity of tablet 00:00: mouth [place] 00 daily. Medical Branch furosemide 1-0 Yes [id number] 1 tablet Univers 20 mg 6-18 02 as needed ity of tablet 00:00: for leg swelling Medical Branch ezetimibe 1-0 Yes [id number] 10mg Take 1 U nivers 10 mg 6-18 tablet by ity of tablet 00:00: mouth [place] 00 daily. Medical Branch furosemide 1-0 Yes [id number] 1 tablet Univers 20 mg 6-18 02 as needed ity of tablet 00:00: for leg swelling Medical Branch ezetimibe 1-0 Yes [id number] 10mg Take 1 U nivers 10 mg 6-18 tablet by ity of tablet 00:00: mouth [place] 00 daily. Medical Branch furosemide 1-0 Yes [id number] 1 tablet Univers 20 mg 6-18 02 as needed ity of tablet 00:00: for leg swelling Medical Branch ezetimibe 2021-0 Yes [id number] 10mg Take 1 U nivers 10 mg 6-18 tablet by ity of tablet 00:00: mouth [place] 00 daily. Medical Branch furosemide 2021-0 Yes [id number] 1 tablet Univers 20 mg 6-18 02 as needed ity of tablet 00:00: for leg swelling Medical Branch ezetimibe 2021-0 Yes [id number] 10mg Take 1 U nivers 10 mg 6-18 tablet by ity of tablet 00:00: mouth [place] 00 daily. Medical Branch furosemide 1-0 Yes [id number] 1 tablet Univers 20 mg 6-18 02 as needed ity of tablet 00:00: for leg swelling Medical Branch ezetimibe 2021-0 Yes [id number] 10mg Take 1 U nivers 10 mg 6-18 tablet by ity of tablet 00:00: mouth [place] 00 daily. Medical Branch furosemide 2021-0 Yes [id number] 1 tablet Univers 20 mg 6-18 02 as needed ity of tablet 00:00: for leg swelling Medical Branch ezetimibe 2021-0 Yes [id number] 10mg Take 1 U nivers 10 mg 6-18 tablet by ity of tablet 00:00: mouth [place] 00 daily. Medical Branch furosemide 2021-0 Yes [id number] 1 tablet Univers 20 mg 6-18 02 as needed ity of tablet 00:00: for leg swelling Medical Branch ezetimibe 2021-0 Yes [id number] 10mg Take 1 U nivers 10 mg 6-18 tablet by ity of tablet 00:00: mouth [place] 00 daily. Medical Branch furosemide 2021-0 Yes [id number] 1 tablet Univers 20 mg 6-18 02 as needed ity of tablet 00:00: for leg swelling Medical Branch ezetimibe 2021-0 Yes [id number] 10mg Take 1 U nivers 10 mg 6-18 tablet by ity of tablet 00:00: mouth [place] 00 daily. Medical Branch furosemide 2021-0 Yes [id number] 1 tablet Univers 20 mg 6-18 02 as needed ity of tablet 00:00: for leg swelling Medical Branch ezetimibe 2021-0 Yes [id number] 10mg Take 1 U nivers 10 mg 6-18 tablet by ity of tablet 00:00: mouth [place] 00 daily. Medical Branch furosemide 2021-0 Yes [id number] 1 tablet Univers 20 mg 6-18 02 as needed ity of tablet 00:00: for leg swelling Medical Branch ezetimibe 2021-0 Yes [id number] 10mg Take 1 U nivers 10 mg 6-18 tablet by ity of tablet 00:00: mouth [place] 00 daily. Medical Branch furosemide 2021-0 Yes [id number] 1 tablet Univers 20 mg 6-18 02 as needed ity of tablet 00:00: for leg swelling Medical Branch ezetimibe 2021-0 Yes [id number] 10mg Take 1 U nivers 10 mg 6-18 tablet by ity of tablet 00:00: mouth [place] 00 daily. Medical Branch furosemide 2020-0 Yes [id number] 1 tablet Univers 20 mg 6-18 02 as needed ity of tablet 00:00: for leg swelling Medical Branch ezetimibe 2020-0 Yes [id number] 10mg Take 1 U nivers 10 mg 6-18 tablet by ity of tablet 00:00: mouth [place] 00 daily. Medical Branch furosemide 2020-0 Yes [id number] 1 tablet Univers 20 mg 6-18 02 as needed ity of tablet 00:00: for leg swelling Medical Branch ezetimibe 2020-0 Yes [id number] 10mg Take 1 U nivers 10 mg 6-18 tablet by ity of tablet 00:00: mouth [place] 00 daily. Medical Branch furosemide 2020-0 Yes [id number] 1 tablet Univers 20 mg 6-18 02 as needed ity of tablet 00:00: for leg swelling Medical Branch ezetimibe 2020-0 Yes [id number] 10mg Take 1 U nivers 10 mg 6-18 tablet by ity of tablet 00:00: mouth [place] 00 daily. Medical Branch furosemide 2020-0 Yes [id number] 1 tablet Univers 20 mg 6-18 02 as needed ity of tablet 00:00: for leg swelling Medical Branch ezetimibe 2020-0 Yes [id number] 10mg Take 1 U nivers 10 mg 6-18 tablet by ity of tablet 00:00: mouth [place] 00 daily. Medical Branch furosemide 2020-0 Yes [id number] 1 tablet Univers 20 mg 6-18 02 as needed ity of tablet 00:00: for leg swelling Medical Branch insulin NPH 2020-0 Yes [id number] 40U inject Univers and regular 5-12 40-50 ity of human 70-30 00:00: Units [place] (NOVOLIN 00 under the Medica l 70/30 U-100 skin 2 Branch INSULIN) (two) 100 unit/mL times (70-30) daily injection before breakfast and dinner. FREESTYLE 2020-0 Yes [id number] 1{kit} 1 Kit Univers RASHARD 2 5-12 every 14 ity of SENSOR Kit 00:00: (fourteen) [place] 00 days. Medical Branch insulin NPH Yes [id number] 40U inject Univers and regular 5-12 40-50 ity of human 70-30 00:00: Units [place] (NOVOLIN 00 under the Medica l 70/30 U-100 skin 2 Branch INSULIN) (two) 100 unit/mL times (70-30) daily injection before breakfast and dinner. FREESTYLE Yes [id number] 1{kit} 1 Kit Univers RASHARD 2 5-12 every 14 ity of SENSOR Kit 00:00: (fourteen) [place] days. Medical Branch insulin NPH Yes [id number] 40U inject Univers and regular 5-12 40-50 ity of human 70-30 00:00: Units [place] (NOVOLIN 00 under the Medica l 70/30 U-100 skin 2 Branch INSULIN) (two) 100 unit/mL times (70-30) daily injection before breakfast and dinner. FREESTYLE Yes [id number] 1{kit} 1 Kit Univers RASHARD 2 5-12 every 14 ity of SENSOR Kit 00:00: (fourteen) [place] days. Medical Branch insulin NPH Yes [id number] 40U inject Univers and regular 5-12 40-50 ity of human 70-30 00:00: Units [place] (NOVOLIN 00 under the Medica l 70/30 U-100 skin 2 Branch INSULIN) (two) 100 unit/mL times (70-30) daily injection before breakfast and dinner. insulin NPH Yes [id number] 40U inject Univers and regular 5-12 40-50 ity of human 70-30 00:00: Units [place] (NOVOLIN 00 under the Medica l 70/30 U-100 skin 2 Branch INSULIN) (two) 100 unit/mL times (70-30) daily injection before breakfast and dinner. insulin NPH Yes [id number] 40U inject Univers and regular 5-12 40-50 ity of human 70-30 00:00: Units [place] (NOVOLIN 00 under the Medica l 70/30 U-100 skin 2 Branch INSULIN) (two) 100 unit/mL times (70-30) daily injection before breakfast and dinner. insulin NPH Yes [id number] 40U inject Univers and regular 5-12 40-50 ity of human 70-30 00:00: Units [place] (NOVOLIN 00 under the Medica l 70/30 U-100 skin 2 Branch INSULIN) (two) 100 unit/mL times (70-30) daily injection before breakfast and dinner. insulin NPH 0 Yes [id number] 40U inject Univers and regular 5-12 40-50 ity of human 70-30 00:00: Units [place] (NOVOLIN 00 under the Medica l 70/30 U-100 skin 2 Branch INSULIN) (two) 100 unit/mL times (70-30) daily injection before breakfast and dinner. insulin NPH 0 Yes [id number] 40U inject Univers and regular 5-12 40-50 ity of human 70-30 00:00: Units [place] (NOVOLIN 00 under the Medica l 70/30 U-100 skin 2 Branch INSULIN) (two) 100 unit/mL times (70-30) daily injection before breakfast and dinner. insulin NPH Yes [id number] 40U inject Univers and regular 5-12 40-50 ity of human 70-30 00:00: Units [place] (NOVOLIN 00 under the Medica l 70/30 U-100 skin 2 Branch INSULIN) (two) 100 unit/mL times (70-30) daily injection before breakfast and dinner. insulin NPH 0 Yes [id number] 40U inject Univers and regular 5-12 40-50 ity of human 70-30 00:00: Units [place] (NOVOLIN 00 under the Medica l 70/30 U-100 skin 2 Branch INSULIN) (two) 100 unit/mL times (70-30) daily injection before breakfast and dinner. insulin NPH 0 Yes [id number] 40U inject Univers and regular 5-12 40-50 ity of human 70-30 00:00: Units [place] (NOVOLIN 00 under the Medica l 70/30 U-100 skin 2 Branch INSULIN) (two) 100 unit/mL times (70-30) daily injection before breakfast and dinner. insulin NPH 0 Yes [id number] 40U inject Univers and regular 5-12 40-50 ity of human 70-30 00:00: Units [place] (NOVOLIN 00 under the Medica l 70/30 U-100 skin 2 Branch INSULIN) (two) 100 unit/mL times (70-30) daily injection before breakfast and dinner. insulin NPH 0 Yes [id number] 40U inject Univers and regular 5-12 40-50 ity of human 70-30 00:00: Units [place] (NOVOLIN 00 under the Medica l 70/30 U-100 skin 2 Branch INSULIN) (two) 100 unit/mL times (70-30) daily injection before breakfast and dinner. insulin NPH 0 Yes [id number] 40U inject Univers and regular 5-12 40-50 ity of human 70-30 00:00: Units [place] (NOVOLIN 00 under the Medica l 70/30 U-100 skin 2 Branch INSULIN) (two) 100 unit/mL times (70-30) daily injection before breakfast and dinner. insulin NPH 0 Yes [id number] 40U inject Univers and regular 5-12 40-50 ity of human 70-30 00:00: Units [place] (NOVOLIN 00 under the Medica l 70/30 U-100 skin 2 Branch INSULIN) (two) 100 unit/mL times (70-30) daily injection before breakfast and dinner. insulin NPH 0 Yes [id number] 40U inject Univers and regular 5-12 40-50 ity of human 70-30 00:00: Units [place] (NOVOLIN 00 under the Medica l 70/30 U-100 skin 2 Branch INSULIN) (two) 100 unit/mL times (70-30) daily injection before breakfast and dinner. insulin NPH 0 Yes [id number] 40U inject Univers and regular 5-12 40-50 ity of human 70-30 00:00: Units [place] (NOVOLIN 00 under the Medica l 70/30 U-100 skin 2 Branch INSULIN) (two) 100 unit/mL times (70-30) daily injection before breakfast and dinner. insulin NPH 0 Yes [id number] 40U inject Univers and regular 5-12 40-50 ity of human 70-30 00:00: Units [place] (NOVOLIN 00 under the Medica l 70/30 U-100 skin 2 Branch INSULIN) (two) 100 unit/mL times (70-30) daily injection before breakfast and dinner. insulin NPH 0 Yes [id number] 40U inject Univers and regular 5-12 40-50 ity of human 70-30 00:00: Units [place] (NOVOLIN 00 under the Medica l 70/30 U-100 skin 2 Branch INSULIN) (two) 100 unit/mL times (70-30) daily injection before breakfast and dinner. insulin NPH Yes [id number] 40U inject Univers and regular 5-12 40-50 ity of human 70-30 00:00: Units [place] (NOVOLIN 00 under the Medica l 70/30 U-100 skin 2 Branch INSULIN) (two) 100 unit/mL times (70-30) daily injection before breakfast and dinner. insulin NPH Yes [id number] 40U inject Univers and regular 5-12 40-50 ity of human 70-30 00:00: Units [place] (NOVOLIN 00 under the Medica l 70/30 U-100 skin 2 Branch INSULIN) (two) 100 unit/mL times (70-30) daily injection before breakfast and dinner. insulin NPH Yes [id number] 40U inject Univers and regular 5-12 40-50 ity of human 70-30 00:00: Units [place] (NOVOLIN 00 under the Medica l 70/30 U-100 skin 2 Branch INSULIN) (two) 100 unit/mL times (70-30) daily injection before breakfast and dinner. insulin NPH Yes [id number] 40U inject Univers and regular 5-12 40-50 ity of human 70-30 00:00: Units [place] (NOVOLIN 00 under the Medica l 70/30 U-100 skin 2 Branch INSULIN) (two) 100 unit/mL times (70-30) daily injection before breakfast and dinner. insulin NPH Yes [id number] 40U inject Univers and regular 5-12 40-50 ity of human 70-30 00:00: Units [place] (NOVOLIN 00 under the Medica l 70/30 U-100 skin 2 Branch INSULIN) (two) 100 unit/mL times (70-30) daily injection before breakfast and dinner. FREESTYLE 2020- No [id number] 1{kit} 1 Kit Univers RASHARD 2 10-0718 every 14 ity of SENSOR Kit 00:00: 00:00 (fourteen) [place] 00 :00 days. Medical Branch FREESTYLE 2020- No [id number] 1{kit} 1 Kit Univers RASHARD 2 12 06-18 every 14 ity of SENSOR Kit 00:00: 00:00 (fourteen) [place] 00 :00 days. Medical Branch mirtazapine Yes [id number] 15mg Take 1 Univers 15 mg 5-06 tablet by ity of tablet 00:00: mouth at [place] [address] bedtime. Medical Branch atorvastati Yes [id number] 80mg Take 1 Univers n 80 mg 5-06 tablet by ity of tablet 00:00: mouth at [place] [address] bedtime. Medical Branch glipiZIDE Yes [id number] 5mg Take 0.5 Univers 10 mg 5-06 tablets by ity of tablet 00:00: mouth 2 [place] (two) Medical times Branch daily before breakfast and dinner. mirtazapine Yes [id number] 15mg Take 1 Univers 15 mg 5-06 tablet by ity of tablet 00:00: mouth at [place] [address] bedtime. Medical Branch atorvastati Yes [id number] 80mg Take 1 Univers n 80 mg 5-06 tablet by ity of tablet 00:00: mouth at [place] [address] bedtime. Medical Branch glipiZIDE Yes [id number] 5mg Take 0.5 Univers 10 mg 5-06 tablets by ity of tablet 00:00: mouth 2 [place] (two) Medical times Branch daily before breakfast and dinner. mirtazapine Yes [id number] 15mg Take 1 Univers 15 mg 5-06 tablet by ity of tablet 00:00: mouth at [place] [address] bedtime. Medical Branch atorvastati Yes [id number] 80mg Take 1 Univers n 80 mg 5-06 tablet by ity of tablet 00:00: mouth at [place] [address] bedtime. Medical Branch mirtazapine Yes [id number] 15mg Take 1 Univers 15 mg 5-06 tablet by ity of tablet 00:00: mouth at [place] [address] bedtime. Medical Branch atorvastati Yes [id number] 80mg Take 1 Univers n 80 mg 5-06 tablet by ity of tablet 00:00: mouth at [place] [address] bedtime. Medical Branch mirtazapine Yes [id number] 15mg Take 1 Univers 15 mg 5-06 tablet by ity of tablet 00:00: mouth at [place] 00 bedtime. Medical Branch atorvastati 0 Yes [id number] 80mg Take 1 Univers n 80 mg 5-06 tablet by ity of tablet 00:00: mouth at [place] 00 bedtime. Medical Branch mirtazapine 0 Yes [id number] 15mg Take 1 Univers 15 mg 5-06 tablet by ity of tablet 00:00: mouth at [place] 00 bedtime. Medical Branch atorvastati 0 Yes [id number] 80mg Take 1 Univers n 80 mg 5-06 tablet by ity of tablet 00:00: mouth at [place] [address] bedtime. Medical Branch mirtazapine Yes [id number] 15mg Take 1 Univers 15 mg 5-06 tablet by ity of tablet 00:00: mouth at [place] [address] bedtime. Medical Branch atorvastati 0 Yes [id number] 80mg Take 1 Univers n 80 mg 5-06 tablet by ity of tablet 00:00: mouth at [place] [address] bedtime. Medical Branch mirtazapine Yes [id number] 15mg Take 1 Univers 15 mg 5-06 tablet by ity of tablet 00:00: mouth at [place] [address] bedtime. Medical Branch atorvastati 0 Yes [id number] 80mg Take 1 Univers n 80 mg 5-06 tablet by ity of tablet 00:00: mouth at [place] [address] bedtime. Medical Branch mirtazapine 0 Yes [id number] 15mg Take 1 Univers 15 mg 5-06 tablet by ity of tablet 00:00: mouth at [place] [address] bedtime. Medical Branch atorvastati 0 Yes [id number] 80mg Take 1 Univers n 80 mg 5-06 tablet by ity of tablet 00:00: mouth at [place] [address] bedtime. Medical Branch mirtazapine 0 Yes [id number] 15mg Take 1 Univers 15 mg 5-06 tablet by ity of tablet 00:00: mouth at [place] [address] bedtime. Medical Branch atorvastati 0 Yes [id number] 80mg Take 1 Univers n 80 mg 5-06 tablet by ity of tablet 00:00: mouth at [place] 00 bedtime. Medical Branch mirtazapine 2020-0 Yes [id number] 15mg Take 1 Univers 15 mg 5-06 tablet by ity of tablet 00:00: mouth at [place] 00 bedtime. Medical Branch atorvastati 2020-0 Yes [id number] 80mg Take 1 Univers n 80 mg 5-06 tablet by ity of tablet 00:00: mouth at [place] 00 bedtime. Medical Branch mirtazapine 2020-0 Yes [id number] 15mg Take 1 Univers 15 mg 5-06 tablet by ity of tablet 00:00: mouth at [place] 00 bedtime. Medical Branch atorvastati 2020-0 Yes [id number] 80mg Take 1 Univers n 80 mg 5-06 tablet by ity of tablet 00:00: mouth at [place] 00 bedtime. Medical Branch mirtazapine 2020-0 Yes [id number] 15mg Take 1 Univers 15 mg 5-06 tablet by ity of tablet 00:00: mouth at [place] [address] bedtime. Medical Branch atorvastati 0 Yes [id number] 80mg Take 1 Univers n 80 mg 5-06 tablet by ity of tablet 00:00: mouth at [place] [address] bedtime. Medical Branch mirtazapine 0 Yes [id number] 15mg Take 1 Univers 15 mg 5-06 tablet by ity of tablet 00:00: mouth at [place] [address] bedtime. Medical Branch atorvastati 0 Yes [id number] 80mg Take 1 Univers n 80 mg 5-06 tablet by ity of tablet 00:00: mouth at [place] [address] bedtime. Medical Branch mirtazapine 2020-0 Yes [id number] 15mg Take 1 Univers 15 mg 5-06 tablet by ity of tablet 00:00: mouth at [place] [address] bedtime. Medical Branch atorvastati 0 Yes [id number] 80mg Take 1 Univers n 80 mg 5-06 tablet by ity of tablet 00:00: mouth at [place] [address] bedtime. Medical Branch mirtazapine 2020-0 Yes [id number] 15mg Take 1 Univers 15 mg 5-06 tablet by ity of tablet 00:00: mouth at [place] [address] bedtime. Medical Branch atorvastati 2020-0 Yes [id number] 80mg Take 1 Univers n 80 mg 5-06 tablet by ity of tablet 00:00: mouth at [place] 00 bedtime. Medical Branch mirtazapine 2020-0 Yes [id number] 15mg Take 1 Univers 15 mg 5-06 tablet by ity of tablet 00:00: mouth at [place] [address] bedtime. Medical Branch atorvastati 2020-0 Yes [id number] 80mg Take 1 Univers n 80 mg 5-06 tablet by ity of tablet 00:00: mouth at [place] [address] bedtime. Medical Branch mirtazapine 2020-0 Yes [id number] 15mg Take 1 Univers 15 mg 5-06 tablet by ity of tablet 00:00: mouth at [place] 00 bedtime. Medical Branch atorvastati 0 Yes [id number] 80mg Take 1 Univers n 80 mg 5-06 tablet by ity of tablet 00:00: mouth at [place] [address] bedtime. Medical Branch mirtazapine 0 Yes [id number] 15mg Take 1 Univers 15 mg 5-06 tablet by ity of tablet 00:00: mouth at [place] [address] bedtime. Medical Branch atorvastati 0 Yes [id number] 80mg Take 1 Univers n 80 mg 5-06 tablet by ity of tablet 00:00: mouth at [place] [address] bedtime. Medical Branch mirtazapine 0 Yes [id number] 15mg Take 1 Univers 15 mg 5-06 tablet by ity of tablet 00:00: mouth at [place] [address] bedtime. Medical Branch atorvastati 0 Yes [id number] 80mg Take 1 Univers n 80 mg 5-06 tablet by ity of tablet 00:00: mouth at [place] [address] bedtime. Medical Branch mirtazapine 2020-0 Yes [id number] 15mg Take 1 Univers 15 mg 5-06 tablet by ity of tablet 00:00: mouth at [place] [address] bedtime. Medical Branch atorvastati 0 Yes [id number] 80mg Take 1 Univers n 80 mg 5-06 tablet by ity of tablet 00:00: mouth at [place] [address] bedtime. Medical Branch mirtazapine 0 Yes [id number] 15mg Take 1 Univers 15 mg 5-06 tablet by ity of tablet 00:00: mouth at [place] [address] bedtime. Medical Branch mirtazapine 0 Yes [id number] 15mg Take 1 Univers 15 mg 5-06 tablet by ity of tablet 00:00: mouth at [place] [address] bedtime. Medical Branch atorvastati Yes [id number] 80mg Take 1 Univers n 80 mg 5-06 tablet by ity of tablet 00:00: mouth at [place] [address] bedtime. Medical Branch atorvastati Yes [id number] 80mg Take 1 Univers n 80 mg 5-06 tablet by ity of tablet 00:00: mouth at [place] 00 bedtime. Medical Branch mirtazapine Yes [id number] 15mg Take 1 Univers 15 mg 5-06 tablet by ity of tablet 00:00: mouth at [place] 00 bedtime. Medical Branch atorvastati Yes [id number] 80mg Take 1 Univers n 80 mg 5-06 tablet by ity of tablet 00:00: mouth at [place] [address] bedtime. Medical Branch mirtazapine Yes [id number] 15mg Take 1 Univers 15 mg 5-06 tablet by ity of tablet 00:00: mouth at [place] [address] bedtime. Medical Branch atorvastati Yes [id number] 80mg Take 1 Univers n 80 mg 5-06 tablet by ity of tablet 00:00: mouth at [place] [address] bedtime. Medical Branch atorvastati Yes [id number] 80mg Take 1 Univers n 80 mg 5-06 tablet by ity of tablet 00:00: mouth at [place] [address] bedtime. Medical Branch mirtazapine Yes [id number] 15mg Take 1 [facility] 15 mg 5-06 tablet by ity of tablet 00:00: mouth at [place] [address] bedtime. Medical Branch atorvastati Yes [id number] 80mg Take 1 [facility] n 80 mg 5-06 tablet by ity of tablet 00:00: mouth at [place] [address] bedtime. [facility] glipiZIDE Yes Type 2 [...] [place] 00 involving bedtime. [facility] l [place] [facility] coronary artery of [place] [facility] without angina pectoris glipiZIDE Yes Type [...] [place] 00 involving bedtime. [facility] l [place] [facility] coronary artery of [place] [facility] without angina pectoris mirtazapine 2020- No [id number] 15mg Take 1 [facility] 15 mg 5-06 12-20 tablet by ity of tablet 00:00: 00:00 mouth at [place] 00 :00 bedtime. Medical Branch glipiZIDE 2020- No [id number] 5mg Take 0.5 [facility] 10 mg 5-06 05-12 tablets by ity of tablet 00:00: 00:00 mouth 2 [place] 00 :00 (two) Medical times Branch daily before breakfast and dinner. glipiZIDE 2020- No [id number] 5mg Take 0.5 [facility] 10 mg 5-06 05-12 tablets by ity of tablet 00:00: 00:00 mouth 2 [place] 00 :00 (two) Medical times Branch daily before breakfast and dinner. fluconazole 2020- No [id number] 150mg Take 1 [facility] 150 mg 4-14 04-17 tablet by ity of tablet 00:00: 04:59 mouth [place] 00 :00 every 72 Medical (seventy-t Branch wo) hours for 2 days. fluconazole 2020- No [id number] 150mg Take 1 [facility] 150 mg 4-14 -17 tablet by ity of tablet 00:00: 04:59 mouth [place] 00 :00 every 72 Medical (seventy-t Branch wo) hours for 2 days. fluconazole 2020- No [id number] 150mg Take 1 [facility] 150 mg 4-14 -17 tablet by ity of tablet 00:00: 04:59 mouth [place] 00 :00 every 72 Medical (seventy-t Branch wo) hours for 2 days. insulin NPH Yes 60U 60 Units, U nivers and regular 4-13 Subcutaneo it y of human 70-30 12:30: us, BIDAC, [place] (HUMULIN 00 First dose Medic al 70-30 U-100 (after Branch INSULIN) last 100 unit/mL modificati (70-30) on) on Tue injection 09/08/20 at 60 Units 0730, Until Discontinu ed, Routine ezetimibe 2020- No [id number] 10mg Take 1 Univers 10 mg -08 10-14 tablet by ity of tablet 00:00: 04:59 mouth [place] 00 :00 daily for Medical 30 days. Branch insulin NPH 2020- No [id number] 60U inject 60 Univers and regular 4-13 05-14 Units ity of human 70-30 00:00: 04:59 under the [place] (NOVOLIN 00 :00 skin 2 Medical 70/30 U-100 (two) Branch INSULIN) times 100 unit/mL daily (70-30) before injection breakfast and dinner for 30 days. ezetimibe 2020- No [id number] 10mg Take 1 Univers 10 mg -13 -14 tablet by ity of tablet 00:00: 04:59 mouth [place] 00 :00 daily for Medical 30 days. Branch insulin NPH 2020- No [id number] 60U inject 60 Univers and regular 4-13 05-14 Units ity of human 70-30 00:00: 04:59 under the [place] (NOVOLIN 00 :00 skin 2 Medical 70/30 U-100 (two) Branch INSULIN) times 100 unit/mL daily (70-30) before injection breakfast and dinner for 30 days. ezetimibe 2020- No [id number] 10mg Take 1 [facility] 10 mg 4-13 05-14 tablet by ity of tablet 00:00: 04:59 mouth [place] 00 :00 daily for Medical 30 days. Branch insulin NPH 2020- No [id number] 60U inject 60 Univers and regular 4-13 05-14 Units ity of human 70-30 00:00: 04:59 under the [place] (NOVOLIN 00 :00 skin 2 Medical 70/30 U-100 (two) Branch INSULIN) times 100 unit/mL daily (70-30) before injection breakfast and dinner for 30 days. ezetimibe 2020- No [id number] 10mg Take 1 [facility] 10 mg 4-13 05-14 tablet by ity of tablet 00:00: 04:59 mouth [place] 00 :00 daily for Medical 30 days. Branch insulin NPH 2020- No [id number] 60U inject 60 [facility] and regular 4-13 05-14 Units ity of human 70-30 00:00: 04:59 under the [place] (NOVOLIN 00 :00 skin 2 Medical 70/30 U-100 (two) Branch INSULIN) times 100 unit/mL daily (70-30) before injection breakfast and dinner for 30 days. ezetimibe 2020- No [id number] 10mg Take 1 [facility] 10 mg 4-13 05-14 tablet by ity of tablet 00:00: 04:59 mouth [place] 00 :00 daily for Medical 30 days. Branch insulin NPH 2020- No [id number] 60U inject 60 Univers and regular 4-13 05-14 Units ity of human 70-30 00:00: 04:59 under the [place] (NOVOLIN 00 :00 skin 2 Medical 70/30 U-100 (two) Branch INSULIN) times 100 unit/mL daily (70-30) before injection breakfast and dinner for 30 days. ezetimibe 2020- No [id number] 10mg Take 1 [facility] 10 mg 4-13 05-14 tablet by ity of tablet 00:00: 04:59 mouth [place] 00 :00 daily for Medical 30 days. Branch insulin NPH 2020- No [id number] 60U inject 60 [facility] and regular 4-13 05-14 Units ity of human 70-30 00:00: 04:59 under the [place] (NOVOLIN 00 :00 skin 2 Medical 70/30 U-100 (two) Branch INSULIN) times 100 unit/mL daily (70-30) before injection breakfast and dinner for 30 days. ezetimibe 2020-2020- No [id number] 10mg Take 1 [facility] 10 mg 4-13 05-14 tablet by ity of tablet 00:00: 04:59 mouth [place] 00 :00 daily for Medical 30 days. Branch insulin NPH 2020- No [id number] 60U inject 60 [facility] and regular 4-13 05-14 Units ity of human 70-30 00:00: 04:59 under the [place] (NOVOLIN 00 :00 skin 2 Medical 70/30 U-100 (two) Branch INSULIN) times 100 unit/mL daily (70-30) before injection breakfast and dinner for 30 days. ezetimibe 2020- No [id number] 10mg Take 1 [facility] 10 mg 4-13 05-14 tablet by ity of tablet 00:00: 04:59 mouth [place] 00 :00 daily for Medical 30 days. 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 insulin NPH 2020- No [id number] 60U inject 60 [facility] and regular 4-13 05-12 Units ity of human 70-30 00:00: 00:00 under the [place] (NOVOLIN 00 :00 skin 2 Medical 70/30 U-100 (two) Branch INSULIN) times 100 unit/mL daily (70-30) before injection breakfast and dinner for 30 days. insulin NPH 2020- No [id number] 60U inject 60 Univers and regular 4-13 05-12 Units ity of human 70-30 00:00: 00:00 under the [place] (NOVOLIN 00 :00 skin 2 Medical 70/30 [...] of tablet 23:21: mouth [place] 25 daily. [facility] Branch aspirin 81 2020-0 Yes 81mg [...] Medical Branch insulin NPH 2020-0 2020- No [id number] 90U inject 90 [facility] and regular 4-12 05-13 Units ity of human 70-30 00:00: 04:59 under the [place] (NOVOLIN 00 :00 skin 2 Medical 70/30 U-100 (two) Branch INSULIN) times 100 unit/mL daily (70-30) before injection breakfast and dinner for 30 days. metoprolol 2020- No [id number] 50mg Take 0.5 Univers succinate 4-12 05-13 tablets by ity of XL 100 mg 00:00: 04:59 mouth [place] 24 hr 00 :00 daily for Medical tablet 30 days. Branch glipiZIDE No [id number] 10mg Take 1 [facility] 10 mg 4-12 05-13 tablet by ity of tablet 00:00: 04:59 mouth 2 [place] 00 :00 (two) Medical times Branch daily before breakfast and dinner for 30 days. SITagliptin No [id number] 100mg Take 1 [facility] 100 mg 4-12 05-13 tablet by ity of tablet 00:00: 04:59 [place] 00 :00 evening Medical meal for Branch 30 days. insulin NPH 2020- No [id number] 90U inject 90 [facility] and regular 4-12 05-13 Units ity of human 70-30 00:00: 04:59 under the [place] (NOVOLIN 00 :00 skin 2 Medical 70/30 U-100 (two) Branch INSULIN) times 100 unit/mL daily (70-30) before injection breakfast and dinner for 30 days. metoprolol No [id number] 50mg Take 0.5 [facility] succinate 4-12 05-13 tablets by ity of XL 100 mg 00:00: 04:59 mouth [place] 24 hr 00 :00 daily for Medical tablet 30 days. Branch glipiZIDE No [id number] 10mg Take 1 [facility] 10 mg 4-12 05-13 tablet by ity of tablet 00:00: 04:59 mouth 2 [place] 00 :00 (two) Medical times [place] daily before breakfast and dinner for 30 days. SITagliptin No [id number] 100mg Take 1 [facility] 100 mg 4-12 05-13 tablet by ity of tablet 00:00: 04:59 mouth [place] 00 :00 evening Medical meal for Branch 30 days. insulin NPH No [id number] 90U inject 90 [facility] and regular 4-12 05-13 Units ity of human 70-30 00:00: 04:59 under the [place] (NOVOLIN 00 :00 skin 2 Medical 70/30 U-100 (two) Branch INSULIN) times 100 unit/mL daily (70-30) before injection breakfast and dinner for 30 days. metoprolol 2020- No [id number] 50mg Take 0.5 [facility] succinate 4-12 05-13 tablets by ity of XL 100 mg 00:00: 04:59 mouth [place] 24 hr 00 :00 daily for Medical tablet 30 days. Branch glipiZIDE 2020- No [id number] 10mg Take 1 [facility] 10 mg 4-12 05-13 tablet by ity of tablet 00:00: 04:59 mouth 2 [place] 00 :00 (two) Medical times Branch daily before breakfast and dinner for 30 days. SITagliptin 2020- No [id number] 100mg Take 1 [facility] 100 mg 4-12 05-13 tablet by ity of tablet 00:00: 04:59 mouth [place] 00 :00 evening Medical meal for Branch 30 days. insulin NPH 2020- No [id number] 90U inject 90 [facility] and regular 4-12 05-13 Units ity of human 70-30 00:00: 04:59 under the [place] (NOVOLIN 00 :00 skin 2 Medical 70/30 U-100 (two) Branch INSULIN) times 100 unit/mL daily (70-30) before injection breakfast and dinner for 30 days. metoprolol 2020- No [id number] 50mg Take 0.5 [facility] succinate 4-12 05-13 tablets by ity of XL 100 mg 00:00: 04:59 mouth [place] 24 hr 00 :00 daily for Medical tablet 30 days. Branch glipiZIDE 2020- No [id number] 10mg Take 1 [facility] 10 mg 4-12 05-13 tablet by ity of tablet 00:00: 04:59 mouth 2 [place] 00 :00 (two) Medical times Branch daily before breakfast and dinner for 30 days. SITagliptin 2020- No [id number] 100mg Take 1 [facility] 100 mg 4-12 05-13 tablet by ity of tablet 00:00: 04:59 mouth [place] 00 :00 evening Medical meal for Branch 30 days. insulin NPH 2020- No [id number] 90U inject 90 Univers and regular 4-12 05-13 Units ity of human 70-30 00:00: 04:59 under the [place] (NOVOLIN 00 :00 skin 2 Medical 70/30 U-100 (two) Branch INSULIN) times 100 unit/mL daily (70-30) before injection breakfast and dinner for 30 days. metoprolol 2020- No [id number] 50mg Take 0.5 Univers succinate 4- 05-13 tablets by ity of XL 100 mg 00:00: 04:59 mouth [place] 24 hr 00 :00 daily for Medical tablet 30 days. [place] glipiZIDE 2020- No [id number] 10mg Take 1 Univers 10 mg - 05-13 tablet by ity of tablet 00:00: 04:59 mouth 2 [place] 00 :00 (two) Medical times [place] daily before breakfast and dinner for 30 days. SITagliptin 2020- No [id number] 100mg Take 1 [facility] 100 mg 4- 05-13 tablet by ity of tablet 00:00: 04:59 mouth [place] 00 :00 evening Medical meal for [place] 30 days. metoprolol No [id number] 50mg Take 0.5 Univers succinate 4- 05-13 tablets by ity of XL 100 mg 00:00: 04:59 mouth [place] 24 hr 00 :00 daily for Medical tablet 30 days. [place] SITagliptin 2020- No [id number] 100mg Take 1 [facility] 100 mg 4- 05-13 tablet by ity of tablet 00:00: 04:59 mouth [place] 00 :00 evening Medical meal for Branch 30 days. metoprolol 2020- No [id number] 50mg Take 0.5 [facility] succinate 4-12 05-13 tablets by ity of XL 100 mg 00:00: 04:59 mouth [place] 24 hr 00 :00 daily for Medical tablet 30 days. [place] SITagliptin 2020- No [id number] 100mg Take 1 [facility] 100 mg 4-12 05-13 tablet by ity of tablet 00:00: 04:59 mouth [place] 00 :00 evening Medical meal for Branch 30 days. metoprolol 2020- No [id number] 50mg Take 0.5 [facility] succinate 4- 05-13 tablets by ity of XL 100 mg 00:00: 04:59 mouth [place] 24 hr 00 :00 daily for Medical tablet 30 days. Branch metoprolol 2020- No [id number] 50mg Take 0.5 [facility] succinate 4- 05-13 [...] :00 involving daily for Medi blanquita tablet [place] 30 days. Branch coronary artery of [place] heart without angina pectoris SITagliptin 2020- No [...] :00 involving daily for Medi [place] tablet [place] 30 days. Branch coronary artery of [place] heart without angina pectoris SITagliptin 2020- No Uncontrolle 100mg Take 1 [facility] 100 mg 4- 05-13 d type 2 tablet by ity of tablet 00:00: 04:59 diabetes mouth with [place] 00 :00 mellitus evening Medical with meal for Branch hyperglycem 30 days. ia SITagliptin 2020- No [id number] 100mg Take 1 [facility] 100 mg 4-12 05-12 tablet by ity of tablet 00:00: 00:00 mouth [place] 00 :00 evening Medical meal for Branch 30 days. SITagliptin 2020- No [id number] 100mg Take 1 [facility] 100 mg 4-12 05-12 tablet by ity of tablet 00:00: 00:00 mouth [place] 00 :00 evening Medical meal for Branch 30 days. insulin NPH 2020- No [id number] 90U inject 90 Univers and regular 4-12 05-06 Units ity of human 70-30 00:00: 00:00 under the [place] (NOVOLIN 00 :00 skin 2 Medical 70/30 U-100 (two) Branch INSULIN) times 100 unit/mL daily (70-30) before injection breakfast and dinner for 30 days. glipiZIDE 2020- No [id number] 10mg Take 1 [facility] 10 mg 4-12 05-06 tablet by ity of tablet 00:00: 00:00 mouth 2 [place] 00 :00 (two) Medical times Branch daily before breakfast and dinner for 30 days. insulin NPH 2020- No [id number] 90U inject 90 Univers and regular 4-12 05-06 Units ity of human 70-30 00:00: 00:00 under the [place] (NOVOLIN 00 :00 skin 2 Medical 70/30 U-100 (two) Branch INSULIN) times 100 unit/mL daily (70-30) before injection breakfast and dinner for 30 days. glipiZIDE 2020- No [id number] 10mg Take 1 [facility] 10 mg 4- 05-06 tablet by ity of tablet 00:00: 00:00 mouth 2 [place] 00 :00 (two) Medical times Branch daily before breakfast and dinner for 30 days. insulin NPH 2020- No Uncontrolle 90U inject 90 Univers and regular 4-12 05-06 d type 2 Units it y of human 70-30 00:00: 00:00 diabetes under the [place] (NOVOLIN 00 :00 mellitus skin 2 Medic [...] dinner for 30 days. lactobacill 2020- No [id number] 1{tbl} Take 1 Univers us 09-07-23 tablet by ity of acidophilus 00:00: 04:59 mouth 2 [place] 25 million 00 :00 (two) Medical cell -100 times Branch mg captab daily for 10 days. lactobacill 2020- No [id number] 1{tbl} Take 1 [facility] us 09-0723 tablet by ity of acidophilus 00:00: 04:59 mouth 2 [place] 25 million 00 :00 (two) Medical cell -100 times Branch mg captab daily for 10 days. lactobacill 2020- No [id number] 1{tbl} Take 1 [facility] us 09-0723 tablet by ity of acidophilus 00:00: 04:59 mouth 2 [place] 25 million 00 :00 (two) Medical cell -100 times Branch mg captab daily for 10 days. metroNIDAZO 2020- No [id number] 500mg Take 1 Univers LE 500 mg 09-07 tablet by ity of tablet 00:00: 04:59 mouth 2 [place] 00 :00 (two) Medical times Branch daily for 6 days. ciprofloxac 2020- No [id number] 750mg Take 1 Univers in HCl 750 09-07 tablet by ity of mg tablet 00:00: 04:59 mouth [place] 00 :00 every 12 Medical (twelve) Branch hours for 6 days. metroNIDAZO 2020- No [id number] 500mg Take 1 [facility] LE 500 mg 09-07 tablet by ity of tablet 00:00: 04:59 mouth 2 [place] 00 :00 (two) Medical times Branch daily for 6 days. ciprofloxac 2020- No [id number] 750mg Take 1 Univers in HCl 750 09-07 tablet by ity of mg tablet 00:00: 04:59 mouth [place] 00 :00 every 12 Medical (twelve) Branch hours for 6 days. metroNIDAZO 2020- No [id number] 500mg Take 1 [facility] LE 500 mg 09-07 tablet by ity of tablet 00:00: 04:59 mouth 2 [place] 00 :00 (two) Medical times [place] daily for 6 days. ciprofloxac 2020- No [id number] 750mg Take 1 [facility] in HCl 750 09-07 tablet by ity of mg tablet 00:00: 04:59 mouth [place] 00 :00 every 12 Medical (twelve) Branch hours for 6 days. cosyntropin 2020- No 250ug 250 mcg, Univers (CORTROSYN) 09-06 Slow IV ity of injection 22:45: 22:06 Push, [place] 250 mcg 00 :00 ONCE, 1 Medical dose, [facility] 09/06/20 at 1745, Routine metoprolol Yes 50mg 50 mg, Unive rs succinate 09-06 Oral, ity of XL (TOPROL 14:00: DAILY, [place] XL) tablet 00 First dose Med ical 50 mg (after Branch last modificati on) on [place] 09/06/20 at 0900, Until Discontinu ed, Routine ezetimibe Yes 10mg 10 mg, Univer s (ZETIA) 09-06 Oral, ity of tablet 10 14:00: DAILY, [place] mg 00 First dose Medical on [facility] 09/06/20 at 0900, Until Discontinu ed, Routine fluconazole Yes 150mg 150 mg, Un cali (DIFLUCAN) 09-06 Oral, ity of tablet 150 14:00: Q72H, [place] mg 00 First dose Medical on [facility] 09/06/20 at 0900, Until Discontinu ed, TRANG
[...] [place] gram/50 mL 00 :00 dose, Sat [facility] blanquita (8 %) IV 09/05/20 at [facility] h Piggyback 4 2014, g Routine [...] 1,000 mg in 16:00: 15:59 Piggyback, [place] NaCl 0.9% 00 :00 Q12H ABX, Medic al (NS) 50 mL 14 doses, Bran ch MINI-BAG First dose (after last reorder) on [facility] [place] [facility] 09/05/20 at 1100, Last dose on Mon09/11/20 at 2300, 50 mL
Reas on for Anti-Infec tive: Documented Infection< br>Documen anthony Infection Site: Urine
D uration of Therapy: Other (see Comments) enoxaparin Yes 40mg 40 mg, Unive rs (LOVENOX) 4-10 Subcutaneo ity of injection 14:00: us, DAILY, [place] 40 mg 00 First dose Medical on [facility] Branch 09/05/20 at 0900, Until Discontinu ed, Routine pantoprazol Yes 40mg 40 mg, Univ ers e 4-10 Oral, ity of (PROTONIX) 14:00: DAILY, [place] EC tablet 00 First dose Medi blanquita 40 mg on [facility] Branch 09/05/20 at 0900, Until Discontinu ed, Routine clopidogreL Yes 75mg 75 mg, Univ ers (PLAVIX) 4-10 Oral, ity of tablet 75 14:00: DAILY, [place] mg 00 First dose Medical on [facility] Branch 09/05/20 at 0900, Until Discontinu ed, Routine metoprolol 2020- No 100mg 100 mg, Un cali succinate 09-05 Oral, ity of XL (TOPROL 14:00: 11:17 DAILY, [place] XL) tablet 00 :33 First dose Med ical 100 mg on [facility] Branch 09/05/20 at 0900, Until Discontinu ed, Routine isosorbide No 30mg 30 mg, Univ ers mononitrate 09-05- Oral, ity of (IMDUR) 24 14:00: 15:58 DAILY, [place] hr tablet 00 :51 First dose Medi blan[place]ita 30 mg on [facility] Branch 09/05/20 at 0900, Until Discontinu ed, Routine furosemide No 20mg 20 mg, Univ ers (LASIX) 4 04-10 Oral, ity of tablet 20 14:00: 22:14 DAILY, [place] mg 00 :49 First dose Medical on [facility] 09/05/20 at 0900, Until Discontinu ed, Routine docusate Yes 100mg 100 mg, Unive rs (COLACE) 4-10 Oral, BID, ity o f capsule 100 13:00: First dose [place] mg 00 on [facility] Medical 09/05/20 at Branch 0800, Until Discontinu ed, Routine metFORMIN Yes 1000mg 1,000 mg, U nivers (GLUCOPHAGE 4-10 Oral, BID ity of ) tablet 13:00: MEALS, [place] 1,000 mg 00 First dose Medic al on [facility] Branch 09/05/20 at 0800, Until Discontinu ed, Routine glipiZIDE Yes 10mg 10 mg, Univer s (GLUCOTROL) 4-10 Oral, ity of tablet 10 12:30: BIDAC, [place] mg 00 First dose Medical on [facility] 09/05/20 at 0730, Until Discontinu ed, Routine insulin NPH No 90U 90 Units, Univers and regular 09-0512 Subcutaneo i ty of human 70-30 12:30: 21:48 us, BIDAC, [place] (HUMULIN 00 :25 First dose Medic al 70-30 U-100 (after Branch INSULIN) last 100 unit/mL modificati (70-30) on) on [facility] injection 09/05/20 at 90 Units 0730, Until [...] Oral, ity of (TYLENOL 09:31: TIDPRN, [place] #3) 300-30 12 Starting Medic al mg tablet 2 Sat Branch tablet 09/05/20 at 0431, Until Discontinu ed, Routine, Pain (scale 4-6) Sliding Yes Subcutaneo [facility] ers Scale 4-10 us, TID ity of Insulin - 09:30: MEALS+HS, [place] Lispro 00 First dose Medical (HumaLOG) + on Sat Branch [facility] 09/05/20 at Testing 0430, Until Discontinu ed, Routine gabapentin 0 Yes 800mg 800 mg, Uni vers (NEURONTIN) 4-10 Oral, TID, it y of tablet 800 09:30: First dose [place] mg 00 on [facility] Medical 09/05/20 at Branch 0430, Until Discontinu ed, Routine atorvastati Yes 80mg 80 mg, Univ ers n (LIPITOR) 4-10 Oral, QHS, it y of tablet 80 09:30: First dose [place] mg 00 on [facility] Medical 09/05/20 at Branch 0430, Until Discontinu ed, Routine aspirin Yes 81mg 81 mg, Univers chewable 4-10 Oral, QAM ity of tablet 81 09:30: WITH [place] mg 00 BREAKFAST, Medical First dose Branch on 09/05/20 at 0430, Until Discontinu ed, Routine lactobacill Yes 1{tbl} 1 tablet, Univers us 4-10 Oral, BID, ity of acidophilus 09:30: First dose [place] (ACIDOPHILL 00 on Sat Medica l US) [...] mEq 00 :22 First dose Medical on [facility] Branch 09/05/20 at 0430, Until Discontinu ed, Routine ondansetron Yes 4mg 4 mg, Slow Univers (ZOFRAN 4-10 IV Push, ity of (PF)) 09:29: Q6HPRN, [place] injection 4 42 Starting Medi blanquita mg [facility] 09/05/20 at 0429, Until Discontinu ed, Routine, Nausea and Vomiting (N/V) glucagon Yes 1mg 1 mg, Univers (GLUCAGEN 4-10 Intramuscu ity of DIAGNOSTIC 09:28: lar, PRN, [place] KIT) 38 Starting Medical injection 1 [facility] 09/05/20 at 0428, Until Discontinu ed, TRANG, [...] 1,000 mg in 05:15: 04:49 Piggyback, [place] NaCl 0.9% 00 :00 ONCE, 1 Medical (NS) 50 mL dose, Sat Bran ch MINI-BAG 09/05/20 at 0015, 50 mL
Reas on for Anti-Infec tive: Documented Infection< br>Documen anthony Infection Site: Urine
D uration of Therapy: Other (see Comments) insulin 2020- No 18U 18 Units, Univ ers regular 09-05-10 Subcutaneo ity o f human 04:30: 03:27 , ONCE, [place] (HUMULIN R) 00 :00 1 dose, Medic al injection 09/04/20 Bran ch 18 Units at 2330, Routine atorvastati Yes [id number] 80mg Take 1 Univers n 80 mg 3-10 tablet by ity of tablet 00:00: mouth at [place] [address] bedtime. Medical Branch atorvastati Yes [id number] 80mg Take 1 Univers n 80 mg 3-10 tablet by ity of tablet 00:00: mouth at [place] [address] bedtime. Medical Branch atorvastati Yes [id number] 80mg Take 1 Univers n 80 mg 3-10 tablet by ity of tablet 00:00: mouth at [place] [address] bedtime. Medical Branch atorvastati Yes [id number] 80mg Take 1 Univers n 80 mg 3-10 tablet by ity of tablet 00:00: mouth at [place] [address] bedtime. Medical Branch atorvastati Yes [id number] 80mg Take 1 Univers n 80 mg 3-10 tablet by ity of tablet 00:00: mouth at [place] [address] bedtime. Medical Branch atorvastati 2020- No [id number] 80mg Take 1 Univers n 80 mg [...] DAILY WITH Branch MEALS isosorbide 2021-0 Yes [id number] 30mg Take 1 Univers mononitrate 1-11 tablet by ity of 30 mg 24 hr 00:00: mouth [place] tablet 00 daily. Medical Branch metoprolol 1-0 Yes [id number] 100mg Take 1 [facility] succinate 1-11 tablet by ity o f XL 100 mg 00:00: mouth [place] 24 hr 00 daily. Medical tablet Branch pantoprazol Yes [id number] 40mg Take 1 Univers e 40 mg EC 1-11 tablet by ity of tablet 00:00: mouth [place] 00 daily. Medical Branch isosorbide 0 Yes [id number] 30mg Take 1 [facility] mononitrate 1-11 tablet by ity of 30 mg 24 hr 00:00: mouth [place] tablet 00 daily. Medical Branch metoprolol Yes [id number] 100mg Take 1 [facility] succinate 1-11 tablet by ity o f XL 100 mg 00:00: mouth [place] 24 hr 00 daily. Medical tablet Branch pantoprazol Yes [id number] 40mg Take 1 Univers e 40 mg EC 1-11 tablet by ity of tablet 00:00: mouth [place] 00 daily. Medical Branch isosorbide Yes [id number] 30mg Take 1 [facility] mononitrate 1-11 tablet by ity of 30 mg 24 hr 00:00: mouth [place] tablet 00 daily. Medical Branch metoprolol Yes [id number] 100mg Take 1 [facility] succinate 1-11 tablet by ity o f XL 100 mg 00:00: mouth [place] 24 hr 00 daily. Medical tablet Branch pantoprazol Yes [id number] 40mg Take 1 Univers e 40 mg EC 1-11 tablet by ity of tablet 00:00: mouth [place] 00 daily. Medical Branch isosorbide Yes [id number] 30mg Take 1 [facility] mononitrate 1-11 tablet by ity of 30 mg 24 hr 00:00: mouth [place] tablet 00 daily. Medical Branch metoprolol Yes [id number] 100mg Take 1 [facility] succinate 1-11 tablet by ity o f XL 100 mg 00:00: mouth [place] 24 hr 00 daily. Medical tablet Branch pantoprazol Yes [id number] 40mg Take 1 Univers e 40 mg EC 1-11 tablet by ity of tablet 00:00: mouth [place] 00 daily. Medical Branch isosorbide Yes [id number] 30mg Take 1 Univers mononitrate 1-11 tablet by ity of 30 mg 24 hr 00:00: mouth [place] tablet 00 daily. Medical Branch metoprolol Yes [id number] 100mg Take 1 [facility] succinate 1-11 tablet by ity o f XL 100 mg 00:00: mouth [place] 24 hr 00 daily. Medical tablet Branch pantoprazol Yes [id number] 40mg Take 1 Univers e 40 mg EC 1-11 tablet by ity of tablet 00:00: mouth [place] 00 daily. Medical Branch isosorbide Yes [id number] 30mg Take 1 [facility] mononitrate 1-11 tablet by ity of 30 mg 24 hr 00:00: mouth [place] tablet 00 daily. Medical Branch metoprolol Yes [id number] 100mg Take 1 [facility] succinate 1-11 tablet by ity o f XL 100 mg 00:00: mouth [place] 24 hr 00 daily. Medical tablet Branch pantoprazol Yes [id number] 40mg Take 1 Univers e 40 mg EC 1-11 tablet by ity of tablet 00:00: mouth [place] 00 daily. Medical Branch isosorbide Yes [id number] 30mg Take 1 [facility] mononitrate 1-11 tablet by ity of 30 mg 24 hr 00:00: mouth [place] tablet 00 daily. Medical Branch metoprolol Yes [id number] 100mg Take 1 [facility] succinate 1-11 tablet by ity o f XL 100 mg 00:00: mouth [place] 24 hr 00 daily. Medical tablet Branch pantoprazol Yes [id number] 40mg Take 1 Univers e 40 mg EC 1-11 tablet by ity of tablet 00:00: mouth [place] 00 daily. Medical Branch isosorbide Yes [id number] 30mg Take 1 [facility] mononitrate 1-11 tablet by ity of 30 mg 24 hr 00:00: mouth [place] tablet 00 daily. Medical Branch metoprolol Yes [id number] 100mg Take 1 [facility] succinate 1-11 tablet by ity o f XL 100 mg 00:00: mouth [place] 24 hr 00 daily. Medical tablet Branch pantoprazol Yes [id number] 40mg Take 1 Univers e 40 mg EC 1-11 tablet by ity of tablet 00:00: mouth [place] 00 daily. Medical Branch isosorbide Yes [id number] 30mg Take 1 [facility] mononitrate 1-11 tablet by ity of 30 mg 24 hr 00:00: mouth [place] tablet 00 daily. Medical Branch metoprolol 0 Yes [id number] 100mg Take 1 [facility] succinate 1-11 tablet by ity o f XL 100 mg 00:00: mouth [place] 24 hr 00 daily. Medical tablet Branch pantoprazol Yes [id number] 40mg Take 1 Univers e 40 mg EC 1-11 tablet by ity of tablet 00:00: mouth [place] 00 daily. Medical Branch isosorbide 2020-0 Yes [id number] 30mg Take 1 [facility] mononitrate 1-11 tablet by ity of 30 mg 24 hr 00:00: mouth [place] tablet 00 daily. Medical Branch metoprolol Yes [id number] 100mg Take 1 [facility] succinate 1-11 tablet by ity o f XL 100 mg 00:00: mouth [place] 24 hr 00 daily. Medical tablet Branch pantoprazol Yes [id number] 40mg Take 1 Univers e 40 mg EC 1-11 tablet by ity of tablet 00:00: mouth [place] 00 daily. Medical Branch isosorbide 2020-0 Yes [id number] 30mg Take 1 [facility] mononitrate 1-11 tablet by ity of 30 mg 24 hr 00:00: mouth [place] tablet 00 daily. Medical Branch metoprolol Yes [id number] 100mg Take 1 [facility] succinate 1-11 tablet by ity o f XL 100 mg 00:00: mouth [place] 24 hr 00 daily. Medical tablet Branch pantoprazol Yes [id number] 40mg Take 1 Univers e 40 mg EC 1-11 tablet by ity of tablet 00:00: mouth [place] 00 daily. Medical Branch pantoprazol 0 Yes [id number] 40mg Take 1 Univers e 40 mg EC 1-11 tablet by ity of tablet 00:00: mouth [place] 00 daily. Medical Branch pantoprazol 0 Yes [id number] 40mg Take 1 Univers e 40 mg EC 1-11 tablet by ity of tablet 00:00: mouth [place] 00 daily. Medical Branch pantoprazol Yes [id number] 40mg Take 1 Univers e 40 mg EC 1-11 tablet by ity of tablet 00:00: mouth [place] 00 daily. Medical Branch pantoprazol Yes [id number] 40mg Take 1 Univers e 40 mg EC 1-11 tablet by ity of tablet 00:00: mouth [place] 00 daily. Medical Branch pantoprazol Yes [id number] 40mg Take 1 Univers e 40 mg EC 1-11 tablet by [facility] tablet 00:00: mouth [place] 00 daily. [facility] pantoprazol Yes [id number] 40mg Take 1 [facility] e 40 mg EC 1-11 tablet by [facility] tablet 00:00: mouth [place] 00 daily. [facility] pantoprazol Yes [id number] 40mg Take 1 [facility] e 40 mg EC 1-11 tablet by [facility] of tablet 00:00: mouth [place] 00 daily. [facility] pantoprazol Yes [id number] 40mg Take 1 [facility] e 40 mg EC 1-11 tablet by [facility] of tablet 00:00: mouth [place] 00 daily. [facility] pantoprazol Yes [id number] 40mg Take 1 [facility] e 40 mg EC 1-11 tablet by [facility] of tablet 00:00: mouth [place] 00 daily. [facility] pantoprazol Yes [id number] 40mg Take 1 [facility] e 40 mg EC 1-11 tablet by [facility] of tablet 00:00: mouth [place] 00 daily. [facility] pantoprazol Yes [id number] 40mg Take 1 [facility] e 40 mg EC 1-11 tablet by [facility] of tablet 00:00: mouth [place] 00 daily. [facility] pantoprazol Yes [id number] 40mg Take 1 [facility] e 40 mg EC 1-11 tablet by [facility] of tablet 00:00: mouth [place] 00 daily. [facility] pantoprazol Yes [id number] 40mg Take 1 [facility] e 40 mg EC 1-11 tablet by [facility] of tablet 00:00: mouth [place] 00 daily. [facility] pantoprazol Yes [id number] 40mg Take 1 [facility] e 40 mg EC 1-11 tablet by [facility] of tablet 00:00: mouth [place] 00 daily. [facility] pantoprazol Yes [id number] 40mg Take 1 [facility] e 40 mg EC 1-11 tablet by [facility] of tablet 00:00: mouth [place] 00 daily. [facility] pantoprazol Yes [id number] 40mg Take 1 [facility] e 40 mg EC 1-11 tablet by [facility] of tablet 00:00: mouth [place] 00 daily. [facility] pantoprazol Yes [id number] 40mg Take 1 [facility] e 40 mg EC 1-11 tablet by [facility] of tablet 00:00: mouth [place] 00 daily. [facility] pantoprazol Yes [id number] 40mg Take 1 [facility] e 40 mg EC 1-11 tablet by [facility] of tablet 00:00: mouth [place] 00 daily. [facility] pantoprazol Yes [id number] 40mg Take 1 [facility] e 40 mg EC 1-11 tablet by [facility] of tablet 00:00: mouth [place] 00 daily. [facility] pantoprazol Yes [id number] 40mg Take 1 [facility] e 40 mg EC 1-11 tablet by [facility] of tablet 00:00: mouth [place] 00 daily. [facility] pantoprazol Yes [id number] 40mg Take 1 [facility] e 40 mg EC 1-11 tablet by [facility] of tablet 00:00: mouth [place] 00 daily. [facility] pantoprazol Yes [id number] 40mg Take 1 [facility] e 40 mg EC 1-11 tablet by [facility] of tablet 00:00: mouth [place] 00 daily. [facility] pantoprazol Yes [id number] 40mg Take 1 [facility] e 40 mg EC 1-11 tablet by [facility] of tablet 00:00: mouth [place] 00 daily. [facility] pantoprazol Yes [id number] 40mg Take 1 [facility] e 40 mg EC 1-11 tablet by [facility] of tablet 00:00: mouth [place] 00 daily. [facility] pantoprazol Yes [id number] 40mg Take 1 [facility] e 40 mg EC 1-11 tablet by [facility] of tablet 00:00: mouth [place] 00 daily. [facility] pantoprazol Yes [id number] 40mg Take 1 [facility] e 40 mg EC 1-11 tablet by [facility] of tablet 00:00: mouth [place] 00 daily. [facility] pantoprazol Yes [id number] 40mg Take 1 [facility] e 40 mg EC 1-11 tablet by [facility] of tablet 00:00: mouth [place] 00 daily. [facility] pantoprazol Yes [id number] 40mg Take 1 [facility] e 40 mg EC 1-11 tablet by [facility] of tablet 00:00: mouth [place] 00 daily. [facility] pantoprazol Yes [id number] 40mg Take 1 [facility] e 40 mg EC 1-11 tablet by [facility] of tablet 00:00: mouth [place] 00 daily. [facility] pantoprazol Yes [id number] 40mg Take 1 [facility] e 40 mg EC 1-11 tablet by [facility] of tablet 00:00: mouth [place] 00 daily. [facility] pantoprazol Yes [id number] 40mg Take 1 [facility] e 40 mg EC 1-11 tablet by [facility] of tablet 00:00: mouth [place] 00 daily. [facility] pantoprazol Yes [id number] 40mg Take 1 [facility] e 40 mg [...] disease daily. Medical [facility] isosorbide 2020- No [id number] 30mg Take 1 [facility] mononitrate 06-08-12 tablet by it y of 30 mg 24 hr 00:00: 00:[place] mouth [place] 00 :00 daily. [facility] metoprolol 2020- No [id number] 100mg Take 1 [facility] succinate -04 01-12 tablet by it[facility] of XL 100 mg 00:00: 00:00 mouth [place] 24 hr 00 :00 daily. Medical tablet Branch methocarbam Yes [id number] 500mg Take 1 [facility] oL 500 mg 1-08 tablet by ity o f tablet 00:00: mouth 4 [place] 00 (four) Medical times Branch daily as needed (muscle spasm). isosorbide Yes [id number] 30mg Take 1 [facility] mononitrate 1-08 tablet by [facility] of 30 mg 24 hr 00:00: mouth [place] tablet 00 daily. [facility] potassium Yes [id number] 10meq Take 1 [facility] n[facility] chloride 10 1-08 tablet by [facility] of mEq CR 00:00: mouth [place] tablet 00 daily. [facility] methocarbam 2021-0 Yes [id number] 500mg Take 1 [facility] oL 500 mg 1-08 tablet by it[facility] o f tablet 00:00: mouth 4 [place] 00 (four) Medical times Branch daily as needed (muscle spasm). potassium 2020-0 Yes [id number] 10meq Take 1 [facility] chloride 10 1-08 tablet by [facility] of mEq CR 00:00: mouth [place] tablet 00 daily. [facility] methocarbam Yes [id number] 500mg Take 1 [facility] oL 500 mg 1-08 tablet by ity o f tablet 00:00: mouth 4 [place] 00 (four) Medical times Branch daily as needed (muscle spasm). potassium 2020-0 Yes [id number] 10meq Take 1 [facility] n[facility] chloride 10 1-08 tablet by [facility] of mEq CR 00:00: mouth [place] tablet 00 daily. [facility] methocarbam Yes [id number] 500mg Take 1 [facility] oL 500 mg 1-08 tablet by ity o f tablet 00:00: mouth 4 [place] 00 (four) Medical times Branch daily as needed (muscle spasm). potassium Yes [id number] 10meq Take 1 [facility] chloride 10 1-08 tablet by ity of mEq CR 00:00: mouth [place] tablet 00 daily. Medical [facility] methocarbam Yes [id number] 500mg Take 1 [facility] oL 500 mg 1-08 tablet by ity o f tablet 00:00: mouth 4 [place] 00 (four) Medical times Branch daily as needed (muscle spasm). potassium 0 Yes [id number] 10meq Take 1 [facility] chloride 10 1-08 tablet by it[facility] of mEq CR 00:00: mouth [place] tablet 00 daily. Medical [facility] methocarbam Yes [id number] 500mg Take 1 [facility] oL 500 mg 1-08 tablet by ity o f tablet 00:00: mouth 4 [place] 00 (four) Medical times Branch daily as needed (muscle spasm). potassium 0 Yes [id number] 10meq Take 1 [facility] chloride 10 1-08 tablet by it[facility] of mEq CR 00:00: mouth [place] tablet 00 daily. Medical [facility] methocarbam Yes [id number] 500mg Take 1 [facility] oL 500 mg 1-08 tablet by ity o f tablet 00:00: mouth 4 [place] 00 (four) Medical times Branch daily as needed (muscle spasm). potassium Yes [id number] 10meq Take 1 [facility] n[facility] chloride 10 1-08 tablet by ity of mEq CR 00:00: mouth [place] tablet 00 daily. Medical [facility] methocarbam Yes [id number] 500mg Take 1 [facility] oL 500 mg 1-08 tablet by ity o f tablet 00:00: mouth 4 [place] 00 (four) Medical times Branch daily as needed (muscle spasm). potassium Yes [id number] 10meq Take 1 [facility] chloride 10 1-08 tablet by ity of mEq CR 00:00: mouth [place] tablet 00 daily. [facility] methocarbam Yes [id number] 500mg Take 1 [facility] oL 500 mg 1-08 tablet by ity o f tablet 00:00: mouth 4 [place] 00 (four) Medical times Branch daily as needed (muscle spasm). potassium Yes [id number] 10meq Take 1 [facility] chloride 10 1-08 tablet by [facility] of mEq CR 00:00: mouth [place] tablet 00 daily. [facility] potassium Yes [id number] 10meq Take 1 [facility] chloride 10 1-08 tablet by [facility] of mEq CR 00:00: mouth [place] tablet 00 daily. Medical Branch potassium Yes [id number] 10meq Take 1 [facility] chloride 10 1-08 tablet by ity of mEq CR 00:00: mouth [place] tablet 00 daily. Medical Branch potassium Yes [id number] 10meq Take 1 [facility] n[facility] chloride 10 1-08 tablet by ity of mEq CR 00:00: mouth [place] tablet 00 daily. Medical Branch potassium 2020- No [id number] 10meq Take 1 [facility] chloride 10 1-08 -12 tablet by it y of mEq CR 00:00: 00:00 mouth [place] tablet 00 :00 daily. [facility] methocarbam 2020- No [id number] 500mg Take 1 [facility] oL 500 mg -08 -09 tablet by ity of tablet 00:00: 00:00 mouth 4 [place] 00 :00 (four) Medical times Branch daily as needed (muscle spasm). methocarbam 2020- No [id number] 500mg Take 1 [facility] oL 500 mg -08 04-09 tablet by ity of tablet 00:00: 00:00 mouth 4 [place] 00 :00 (four) Medical times Branch daily as needed (muscle spasm). isosorbide 2020-0 2021- No [id number] 30mg Take 1 [facility] mononitrate 06-05 tablet by it y of 30 mg 24 hr 00:00: 00:00 mouth [place] tablet 00 :00 daily. [facility] gabapentin 2020-1 Yes [id number] 800mg Take 1 [facility] 800 mg 2-22 tablet by it[facility] of tablet 00:00: mouth 3 (three) Medical times Branch daily. gabapentin 2020-1 Yes [id number] 800mg Take 1 [facility] 800 mg 2-22 tablet by ity of tablet 00:00: mouth 3 (three) Medical times Branch daily. gabapentin 2020-1 Yes [id number] 800mg Take 1 [facility] 800 mg 2-22 tablet by it[facility] of tablet 00:00: mouth 3 (three) Medical times Branch daily. gabapentin 2020-1 Yes [id number] 800mg Take 1 [facility] 800 mg 2-22 tablet by it[facility] of tablet 00:00: mouth 3 (three) Medical times Branch daily. gabapentin 2020-1 Yes [id number] 800mg Take 1 [facility] 800 mg 2-22 tablet by ity of tablet 00:00: mouth 3 (three) Medical times Branch daily. gabapentin 2020-1 Yes [id number] 800mg Take 1 [facility] 800 mg 2-22 tablet by ity of tablet 00:00: mouth 3 (three) Medical times Branch daily. gabapentin 2020-1 Yes [id number] 800mg Take 1 [facility] 800 mg 2-22 tablet by ity of tablet 00:00: mouth 3 (three) Medical times Branch daily. gabapentin 2020-1 Yes [id number] 800mg Take 1 [facility] 800 mg 2-22 tablet by ity of tablet 00:00: mouth 3 (three) Medical times Branch daily. gabapentin 2020-1 Yes [id number] 800mg Take 1 [facility] 800 mg 2-22 tablet by ity of tablet 00:00: mouth 3 (three) Medical times Branch daily. gabapentin 2020-1 Yes [id number] 800mg Take 1 [facility] 800 mg 2-22 tablet by it[facility] of tablet 00:00: mouth 3 (three) Medical times Branch daily. gabapentin 2020-1 Yes [id number] 800mg Take 1 [facility] 800 mg 2-22 tablet by ity of tablet 00:00: mouth 3 (three) Medical times Branch daily. gabapentin 2020-1 Yes [id number] 800mg Take 1 [facility] 800 mg 2-22 tablet by ity of tablet 00:00: mouth 3 (three) Medical times Branch daily. gabapentin 2020-1 Yes [id number] 800mg Take 1 [facility] 800 mg 2-22 tablet by ity of tablet 00:00: mouth 3 (three) Medical times Branch daily. gabapentin 2020-1 Yes [id number] 800mg Take 1 [facility] 800 mg 2-22 tablet by ity of tablet 00:00: mouth 3 (three) Medical times Branch daily. gabapentin 2020-1 Yes [id number] 800mg Take 1 [facility] 800 mg 2-22 tablet by ity of tablet 00:00: mouth (three) Medical times Branch daily. gabapentin 2020-1 Yes [id number] 800mg Take 1 [facility] 800 mg 2-22 tablet by ity of tablet 00:00: mouth (three) Medical times Branch daily. gabapentin 2020-1 Yes [id number] 800mg Take 1 [facility] 800 mg 2-22 tablet by ity of tablet 00:00: mouth (three) Medical times Branch daily. gabapentin 2020-1 Yes [id number] 800mg Take 1 [facility] 800 mg 2-22 tablet by ity of tablet 00:00: mouth (three) Medical times Branch daily. gabapentin 2020-1 Yes [id number] 800mg Take 1 [facility] 800 mg 2-22 tablet by ity of tablet 00:00: mouth (three) Medical times Branch daily. gabapentin 2020-1 Yes [id number] 800mg Take 1 [facility] 800 mg 2-22 tablet by ity of tablet 00:00: mouth 3 (three) Medical times Branch daily. gabapentin 2020-1 Yes [id number] 800mg Take 1 [facility] 800 mg 2-22 tablet by ity of tablet 00:00: mouth 3 (three) Medical times Branch daily. gabapentin 2020-1 Yes [id number] 800mg Take 1 [facility] 800 mg 2-22 tablet by ity of tablet 00:00: mouth 3 (three) Medical times Branch daily. gabapentin 2020-1 Yes [id number] 800mg Take 1 [facility] 800 mg 2-22 tablet by ity of tablet 00:00: mouth 3 (three) Medical times Branch daily. gabapentin 2020-1 Yes [id number] 800mg Take 1 [facility] 800 mg 2-22 tablet by ity of tablet 00:00: mouth 3 (three) Medical times Branch daily. gabapentin 2020-1 Yes [id number] 800mg Take 1 [facility] 800 mg 2-22 tablet by ity of tablet 00:00: mouth (three) Medical times Branch daily. gabapentin 2020-1 Yes [id number] 800mg Take 1 [facility] 800 mg 2-22 tablet by ity of tablet 00:00: mouth (three) Medical times Branch daily. gabapentin 2020-1 Yes [id number] 800mg Take 1 [facility] 800 mg 2-22 tablet by ity of tablet 00:00: mouth (three) Medical times Branch daily. gabapentin 2020-1 Yes [id number] 800mg Take 1 [facility] 800 mg 2-22 tablet by ity of tablet 00:00: mouth (three) Medical times Branch daily. gabapentin 2020-1 Yes [id number] 800mg Take 1 [facility] 800 mg 2-22 tablet by ity of tablet 00:00: mouth (three) Medical times Branch daily. gabapentin 2020-1 Yes [id number] 800mg Take 1 [facility] 800 mg 2-22 tablet by ity of tablet 00:00: mouth (three) Medical times Branch daily. gabapentin 2020-1 Yes [id number] 800mg Take 1 [facility] 800 mg 2-22 [...] Medical times Branch daily. gabapentin 2019-2020- No [id number] 800mg Take 1 [facility] 800 mg 2-22 07-23 tablet by ity of tablet 00:00: 00:00 mouth 3 [place] 00 :00 (three) Medical times Branch daily. methocarbam 2020- Yes [id number] 500mg Take 1 [facility] oL 500 mg 2-11 tablet by ity o f tablet 00:00: mouth 4 (four) Medical times Branch daily as needed (muscle spasm). methocarbam 2019-05 Yes [id number] 500mg Take 1 [facility] oL 500 mg 2-11 tablet by ity o f tablet 00:00: mouth 4 (four) Medical times Branch daily as needed (muscle spasm). methocarbam 2019-05 Yes [id number] 500mg Take 1 [facility] oL 500 mg 2-11 tablet by ity o f tablet 00:00: mouth 4 (four) Medical times Branch daily as needed (muscle spasm). methocarbam 2019-05 Yes [id number] 500mg Take 1 [facility] oL 500 mg 2-11 tablet by ity o f tablet 00:00: mouth (four) Medical times Branch daily as needed (muscle spasm). methocarbam 2019-05 Yes [id number] 500mg Take 1 [facility] oL 500 mg 2-11 tablet by ity o f tablet 00:00: mouth (four) Medical times Branch daily as needed (muscle spasm). methocarbam 2019-05 Yes [id number] 500mg Take 1 [facility] oL 500 mg 2-11 tablet by ity o f tablet 00:00: mouth (four) Medical times Branch daily as needed (muscle spasm). methocarbam 2019-05 Yes [id number] 500mg Take 1 [facility] oL 500 mg 2-11 tablet by ity o f tablet 00:00: mouth (four) Medical times Branch daily as needed (muscle spasm). methocarbam 2019-05- No [id number] 500mg Take 1 [facility] oL 500 mg 2-11 -08 tablet by ity of tablet 00:00: 00:00 mouth 4 [place] 00 :00 (four) Medical times Branch daily as needed (muscle spasm). PANTOPRAZOL 2019-05 Yes [id number] TAKE 1 [facility] E 40 mg EC 1-18 TABLET BY ity of tablet 00:00: MOUTH ONCE 00 DAILY DO Medical NOT CRUSH Branch OR CHEW FUROSEMIDE 2019-05 Yes [id number] Take 1 U nivers 20 mg 1-18 tablet by ity of tablet 00:00: mouth once 00 daily Medical Branch POTASSIUM 2019-05 Yes [id number] Take 1 [facility] CHLORIDE 10 1-18 tablet by ity of mEq CR 00:00: mouth once [place] tablet 00 daily Medical Branch PANTOPRAZOL 2020- Yes [id number] TAKE 1 [facility] E 40 mg EC 1-18 TABLET BY ity of tablet 00:00: MOUTH ONCE [place] 00 DAILY DO Medical NOT CRUSH Branch OR CHEW FUROSEMIDE 2020- Yes [id number] Take 1 U nivers 20 mg 1-18 tablet by ity of tablet 00:00: mouth once [place] 00 daily Medical Branch POTASSIUM 2020- Yes [id number] Take 1 [facility] CHLORIDE 10 1-18 tablet by ity of mEq CR 00:00: mouth once [place] tablet 00 daily Medical Branch PANTOPRAZOL 2020- Yes [id number] TAKE 1 [facility] E 40 mg EC 1-18 TABLET BY ity of tablet 00:00: MOUTH ONCE [place] 00 DAILY DO Medical NOT CRUSH Branch OR CHEW FUROSEMIDE 2020- Yes [id number] Take 1 U nivers 20 mg 1-18 tablet by ity of tablet 00:00: mouth once [place] 00 daily Medical Branch POTASSIUM 2020- Yes [id number] Take 1 [facility] CHLORIDE 10 1-18 tablet by ity of mEq CR 00:00: mouth once [place] tablet 00 daily Medical Branch PANTOPRAZOL 2020- Yes [id number] TAKE 1 [facility] E 40 mg EC 1-18 TABLET BY ity of tablet 00:00: MOUTH ONCE [place] 00 DAILY DO Medical NOT CRUSH Branch OR CHEW FUROSEMIDE 2020- Yes [id number] Take 1 U nivers 20 mg 1-18 tablet by ity of tablet 00:00: mouth once [place] 00 daily Medical Branch POTASSIUM 2020- Yes [id number] Take 1 [facility] CHLORIDE 10 1-18 tablet by ity of mEq CR 00:00: mouth once [place] tablet 00 daily Medical Branch PANTOPRAZOL 2020- Yes [id number] TAKE 1 [facility] E 40 mg EC 1-18 TABLET BY ity of tablet 00:00: MOUTH ONCE [place] 00 DAILY DO Medical NOT CRUSH Branch OR CHEW FUROSEMIDE 2020- Yes [id number] Take 1 U nivers 20 mg 1-18 tablet by ity of tablet 00:00: mouth once [place] 00 daily Medical Branch POTASSIUM 2020- Yes [id number] Take 1 [facility] CHLORIDE 10 1-18 tablet by ity of mEq CR 00:00: mouth once [place] tablet 00 daily Medical Branch PANTOPRAZOL 2020- Yes [id number] TAKE 1 [facility] E 40 mg EC 1-18 TABLET BY ity of tablet 00:00: MOUTH ONCE [place] 00 DAILY DO Medical NOT CRUSH Branch OR CHEW FUROSEMIDE 2020- Yes [id number] Take 1 U nivers 20 mg 1-18 tablet by ity of tablet 00:00: mouth once [place] 00 daily Medical Branch POTASSIUM 2020- Yes [id number] Take 1 [facility] CHLORIDE 10 1-18 tablet by ity of mEq CR 00:00: mouth once [place] tablet 00 daily Medical Branch PANTOPRAZOL 2020- Yes [id number] TAKE 1 [facility] E 40 mg EC 1-18 TABLET BY ity of tablet 00:00: MOUTH ONCE [place] 00 DAILY DO Medical NOT CRUSH Branch OR CHEW FUROSEMIDE 2020- Yes [id number] Take 1 U nivers 20 mg 1-18 tablet by ity of tablet 00:00: mouth once [place] 00 daily Medical Branch POTASSIUM 2020- Yes [id number] Take 1 [facility] CHLORIDE 10 1-18 tablet by ity of mEq CR 00:00: mouth once [place] tablet 00 daily Medical Branch PANTOPRAZOL 2020- Yes [id number] TAKE 1 [facility] E 40 mg EC 1-18 TABLET BY ity of tablet 00:00: MOUTH ONCE [place] 00 DAILY DO Medical NOT CRUSH Branch OR CHEW FUROSEMIDE 2020- Yes [id number] Take 1 [facility] nivers 20 mg 1-18 tablet by ity of tablet 00:00: mouth once [place] 00 daily Medical Branch POTASSIUM 2020- Yes [id number] Take 1 [facility] CHLORIDE 10 1-18 tablet by ity of mEq CR 00:00: mouth once [place] tablet 00 daily Medical Branch PANTOPRAZOL 2020- Yes [id number] TAKE 1 [facility] E 40 mg EC 1-18 TABLET BY ity of tablet 00:00: MOUTH ONCE [place] 00 DAILY DO Medical NOT CRUSH Branch OR CHEW FUROSEMIDE 2020- Yes [id number] Take 1 U nivers 20 mg 1-18 tablet by ity of tablet 00:00: mouth once [place] 00 daily Medical Branch FUROSEMIDE 2020- Yes [id number] Take 1 U nivers 20 mg 1-18 tablet by ity of tablet 00:00: mouth once [place] 00 daily Medical Branch FUROSEMIDE 2020- Yes [id number] Take 1 U nivers 20 mg 1-18 tablet by ity of tablet 00:00: mouth once [place] 00 daily Medical Branch FUROSEMIDE 2020- Yes [id number] Take 1 U nivers 20 mg 1-18 tablet by ity of tablet 00:00: mouth once [place] daily Medical Branch FUROSEMIDE 2019-05 Yes [id number] Take 1 U nivers 20 mg 1-18 tablet by ity of tablet 00:00: mouth once [place] daily Medical Branch FUROSEMIDE 2019-05 Yes [id number] Take 1 U nivers 20 mg 1-18 tablet by ity of tablet 00:00: mouth once [place] daily Medical Branch FUROSEMIDE 2019-05 Yes [id number] Take 1 U nivers 20 mg 1-18 tablet by ity of tablet 00:00: mouth once [place] daily Medical Branch FUROSEMIDE 2019-05 Yes [id number] Take 1 U nivers 20 mg 1-18 tablet by ity of tablet 00:00: mouth once [place] daily Medical Branch FUROSEMIDE 2019-05 Yes [id number] Take 1 U nivers 20 mg 1-18 tablet by ity of tablet 00:00: mouth once [place] daily Medical Branch FUROSEMIDE 2019-05 Yes [id number] Take 1 U nivers 20 mg 1-18 tablet by ity of tablet 00:00: mouth once [place] daily Medical Branch FUROSEMIDE 2019-05 Yes [id number] Take 1 U nivers 20 mg 1-18 tablet by ity of tablet 00:00: mouth once [place] daily Medical Branch FUROSEMIDE 2019-05 Yes [id number] Take 1 U nivers 20 mg 1-18 tablet by ity of tablet 00:00: mouth once [place] daily Medical Branch FUROSEMIDE 2019-05- No [id number] Take 1 [facility] 20 mg 1-18 -12 tablet by ity of tablet 00:00: 00:00 mouth once [place] 00 :00 daily Medical Branch PANTOPRAZOL 2019-05- No [id number] TAKE 1 [facility] E 40 mg EC -18 06-08 TABLET BY ity of tablet 00:00: 00:00 MOUTH ONCE [place] 00 :00 DAILY DO Medical NOT CRUSH Branch OR CHEW POTASSIUM 2019-05- No [id number] Take 1 U nivers CHLORIDE 10 -18 06-05 tablet by it y of mEq CR 00:00: 00:00 mouth once [place] tablet 00 :00 daily Medical Branch gabapentin 2019-05 Yes [id number] 800mg Take 1 [facility] 800 mg 1-16 tablet by ity of tablet 00:00: mouth 3 (three) Medical times Branch daily. gabapentin 2019-05 Yes [id number] 800mg Take 1 [facility] 800 mg 1-16 tablet by ity of tablet 00:00: mouth 3 00 (three) Medical times Branch daily. gabapentin 2020-1 Yes [id number] 800mg Take 1 [facility] 800 mg 1-16 tablet by ity of tablet 00:00: mouth 3 00 (three) Medical times Branch daily. gabapentin 2020-1 Yes [id number] 800mg Take 1 [facility] 800 mg 1-16 tablet by ity of tablet 00:00: mouth 3 00 (three) Medical times Branch daily. gabapentin 2020-1 Yes [id number] 800mg Take 1 [facility] 800 mg 1-16 tablet by ity of tablet 00:00: mouth 3 00 (three) Medical times Branch daily. gabapentin 2020-1 Yes [id number] 800mg Take 1 [facility] 800 mg 1-16 tablet by ity of tablet 00:00: mouth 3 00 (three) Medical times Branch daily. gabapentin 2020- Yes [id number] 800mg Take 1 [facility] 800 mg 1-16 tablet by ity of tablet 00:00: mouth 3 00 (three) Medical times Branch daily. gabapentin 2020-1 Yes [id number] 800mg Take 1 [facility] 800 mg 1-16 tablet by ity of tablet 00:00: mouth 3 00 (three) Medical times Branch daily. gabapentin 2019- 2020- No [id number] 800mg Take 1 [facility] 800 mg 1-16 12-22 tablet by ity of tablet 00:00: 00:00 mouth 3 [place] 00 :00 (three) Medical times Branch daily. Nitrofurant 2019- Yes [id number] 100mg Take 1 [facility] oin&Nit. 1-10 capsule by ity o f Macrocryst 00:00: mouth 2 [place] (MACROBID) 00 (two) Medical 100 mg times Branch capsule daily. Nitrofurant 2019- Yes [id number] 100mg Take 1 [facility] oin&Nit. 1-10 capsule by ity o f Macrocryst 00:00: mouth 2 [place] (MACROBID) 00 (two) Medical 100 mg times Branch capsule daily. Nitrofurant 2019- Yes [id number] 100mg Take 1 [facility] oin&Nit. 1-10 capsule by ity o f Macrocryst 00:00: mouth 2 [place] (MACROBID) 00 (two) Medical 100 mg times Branch capsule daily. Nitrofurant 2019-05 Yes [id number] 100mg Take 1 [facility] oin&Nit. 1-10 capsule by ity o f Macrocryst 00:00: mouth 2 [place] (MACROBID) 00 (two) Medical 100 mg times Branch capsule daily. Nitrofurant 2019-05 Yes [id number] 100mg Take 1 [facility] oin&Nit. 1-10 capsule by ity o f Macrocryst 00:00: mouth 2 [place] (MACROBID) 00 (two) Medical 100 mg times Branch capsule daily. Nitrofurant 2019-05 Yes [id number] 100mg Take 1 [facility] oin&Nit. 1-10 capsule by ity o f Macrocryst 00:00: mouth 2 [place] (MACROBID) 00 (two) Medical 100 mg times Branch capsule daily. Nitrofurant 2019-05 Yes [id number] 100mg Take 1 [facility] oin&Nit. 1-10 capsule by ity o f Macrocryst 00:00: mouth 2 [place] (MACROBID) 00 (two) Medical 100 mg times Branch capsule daily. Nitrofurant 2019-05 Yes [id number] 100mg Take 1 [facility] oin&Nit. 1-10 capsule by ity o f Macrocryst 00:00: mouth 2 [place] (MACROBID) 00 (two) Medical 100 mg times Branch capsule daily. Nitrofurant 2019-05 2020- No [id number] 100mg Take 1 [facility] oin&Nit. 1-10 12-19 capsule by ity of Macrocryst 00:00: 00:00 mouth 2 [place] (MACROBID) 00 :00 (two) Medical 100 mg times Branch capsule daily. Nitrofurant 2019-05 2020- No [id number] 100mg Take 1 [facility] oin&Nit. 1-10 12-19 [...] for tablet 7 days. metroNIDAZO 2019-05 Yes [id number] 500mg Take 1 [facility] LE 500 mg 1-06 tablet by ity o f tablet 00:00: mouth [place] 00 every 12 Medical (twelve) Branch hours. clotrimazol 2019-05 Yes [id number] Apply to [facility] e-betametha 1-06 area(s) 2 ity of sone cream 00:00: (two) [place] 00 times Medical daily. Use Branch for 2 weeks on affected area metroNIDAZO 2019-05 Yes [id number] 500mg Take 1 [facility] LE 500 mg 1-06 tablet by ity o f tablet 00:00: mouth [place] 00 every 12 Medical (twelve) Branch hours. clotrimazol 2019- Yes [id number] Apply to [facility] e-betametha 1-06 area(s) 2 ity of sone cream 00:00: (two) [place] 00 times Medical daily. Use Branch for 2 weeks on affected area metroNIDAZO 2019- Yes [id number] 500mg Take 1 [facility] LE 500 mg 1-06 tablet by ity o f tablet 00:00: mouth [place] 00 every 12 Medical (twelve) Branch hours. clotrimazol 2019- Yes [id number] Apply to [facility] e-betametha 1-06 area(s) 2 ity of sone cream 00:00: (two) [place] 00 times Medical daily. Use Branch for 2 weeks on affected area metroNIDAZO 2019-05 Yes [id number] 500mg Take 1 [facility] LE 500 mg 1-06 tablet by ity o f tablet 00:00: mouth [place] 00 every 12 Medical (twelve) Branch hours. clotrimazol 2019- Yes [id number] Apply to [facility] e-betametha 1-06 area(s) 2 ity of sone cream 00:00: (two) [place] 00 times Medical daily. Use Branch for 2 weeks on affected area metroNIDAZO 2020- Yes [id number] 500mg Take 1 [facility] LE 500 mg 1-06 tablet by ity o f tablet 00:00: mouth [place] 00 every 12 Medical (twelve) Branch hours. clotrimazol 2020- Yes [id number] Apply to [facility] e-betametha 1-06 area(s) 2 ity of sone cream 00:00: (two) [place] 00 times Medical daily. Use Branch for 2 weeks on affected area metroNIDAZO 2019-05 Yes [id number] 500mg Take 1 [facility] LE 500 mg 1-06 tablet by ity o f tablet 00:00: mouth [place] 00 every 12 Medical (twelve) Branch hours. clotrimazol 2019- Yes [id number] Apply to [facility] e-betametha 1-06 area(s) 2 ity of sone cream 00:00: (two) [place] 00 times Medical daily. Use Branch for 2 weeks on affected area metroNIDAZO 2019-05 Yes [id number] 500mg Take 1 [facility] LE 500 mg 1-06 tablet by ity o f tablet 00:00: mouth [place] 00 every 12 Medical (twelve) Branch hours. clotrimazol 2019- Yes [id number] Apply to [facility] e-betametha 1-06 area(s) 2 ity of sone cream 00:00: (two) [place] 00 times Medical daily. Use Branch for 2 weeks on affected area metroNIDAZO 2019- Yes [id number] 500mg Take 1 [facility] LE 500 mg 1-06 tablet by ity o f tablet 00:00: mouth [place] 00 every 12 Medical (twelve) Branch hours. clotrimazol 2020- Yes [id number] Apply to [facility] e-betametha 1-06 area(s) 2 ity of sone cream 00:00: (two) [place] 00 times Medical daily. Use Branch for 2 weeks on affected area metroNIDAZO 2019-05 Yes [id number] 500mg Take 1 [facility] LE 500 mg 1-06 tablet by ity o f tablet 00:00: mouth [place] 00 every 12 Medical (twelve) Branch hours. clotrimazol 2020- Yes [id number] Apply to [facility] e-betametha 1-06 area(s) 2 ity of sone cream 00:00: (two) [place] 00 times Medical daily. Use Branch for 2 weeks on affected area metroNIDAZO 2020- Yes [id number] 500mg Take 1 [facility] LE 500 mg 1-06 tablet by ity o f tablet 00:00: mouth [place] 00 every 12 Medical (twelve) Branch hours. clotrimazol 2020- Yes [id number] Apply to [facility] e-betametha 1-06 area(s) 2 ity of sone cream 00:00: (two) [place] 00 times Medical daily. Use Branch for 2 weeks on affected area metroNIDAZO 2020- Yes [id number] 500mg Take 1 [facility] LE 500 mg 1-06 tablet by ity o f tablet 00:00: mouth [place] 00 every 12 Medical (twelve) Branch hours. clotrimazol 2020- Yes [id number] Apply to [facility] e-betametha 1-06 area(s) 2 ity of sone cream 00:00: (two) [place] 00 times Medical daily. Use Branch for 2 weeks on affected area metroNIDAZO 2020- Yes [id number] 500mg Take 1 [facility] LE 500 mg 1-06 tablet by ity o f tablet 00:00: mouth [place] 00 every 12 Medical (twelve) Branch hours. clotrimazol 2020- Yes [id number] Apply to [facility] e-betametha 1-06 area(s) 2 ity of sone cream 00:00: (two) [place] 00 times Medical daily. Use Branch for 2 weeks on affected area clotrimazol 2020- Yes [id number] Apply to [facility] e-betametha 1-06 area(s) 2 ity of sone cream 00:00: (two) [place] 00 times Medical daily. Use Branch for 2 weeks on affected area clotrimazol 2020- Yes [id number] Apply to [facility] e-betametha 1-06 area(s) 2 ity of sone cream 00:00: (two) [place] 00 times Medical daily. Use Branch for 2 weeks on affected area clotrimazol 2020- Yes [id number] Apply to [facility] e-betametha 1-06 area(s) 2 ity of sone cream 00:00: (two) [place] 00 times Medical daily. Use Branch for 2 weeks on affected area clotrimazol 2020-1 Yes [id number] Apply to [facility] e-betametha 1-06 area(s) 2 ity of sone cream 00:00: (two) [place] 00 times Medical daily. Use Branch for 2 weeks on affected area clotrimazol 2020-1 Yes [id number] Apply to [facility] e-betametha 1-06 area(s) 2 ity of sone cream 00:00: (two) [place] 00 times Medical daily. Use Branch for 2 weeks on affected area clotrimazol 2020-1 Yes [id number] Apply to [facility] e-betametha 1-06 area(s) 2 ity of sone cream 00:00: (two) [place] 00 times Medical daily. Use Branch for 2 weeks on affected area clotrimazol 2020-1 Yes [id number] Apply to [facility] e-betametha 1-06 area(s) 2 ity of sone cream 00:00: (two) [place] 00 times Medical daily. Use Branch for 2 weeks on affected area clotrimazol 2020-1 Yes [id number] Apply to [facility] e-betametha 1-06 area(s) 2 ity of sone cream 00:00: (two) [place] 00 times Medical daily. Use Branch for 2 weeks on affected area clotrimazol 2020-1 Yes [id number] Apply to [facility] e-betametha 1-06 area(s) 2 ity of sone cream 00:00: (two) [place] 00 times Medical daily. Use Branch for 2 weeks on affected area clotrimazol 2020-1 Yes [id number] Apply to [facility] e-betametha 1-06 area(s) 2 ity of sone cream 00:00: (two) [place] 00 times Medical daily. Use Branch for 2 weeks on affected area clotrimazol 2020-1 Yes [id number] Apply to [facility] e-betametha 1-06 area(s) 2 ity of sone cream 00:00: (two) [place] 00 times Medical daily. Use Branch for 2 weeks on affected area clotrimazol 2020-1 Yes [id number] Apply to [facility] e-betametha 1-06 area(s) 2 ity of sone cream 00:00: (two) [place] 00 times Medical daily. Use Branch for 2 weeks on affected area clotrimazol 2019-05- No [id number] Apply to [facility] e-betametha 06-03 area(s) 2 it y of sone cream 00:00: 00:00 (two) [place] 00 :00 times Medical daily. Use Branch for 2 weeks on affected area clotrimazol 2019-05- No [id number] Apply to [facility] e-betametha 06-03 area(s) 2 it y of sone cream 00:00: 00:00 (two) [place] 00 :00 times Medical daily. Use Branch for 2 weeks on affected area metroNIDAZO 2019-05- No [id number] 500mg Take 1 [facility] LE 500 mg 06-03 tablet by ity of tablet 00:00: 00:00 mouth [place] 00 :00 every 12 Medical (twelve) Branch hours. metroNIDAZO 2019-05- No [id number] 500mg Take 1 [facility] LE 500 mg 06-03 tablet by ity of tablet 00:00: 00:00 mouth [place] 00 :00 every 12 Medical (twelve) Branch hours. fluconazole 2019-05- No [id number] 150mg Take 1 [facility] 150 mg 06-03 tablet by ity of tablet 00:00: 05:59 mouth [place] 00 :00 every 72 [facility] for 2 doses. Take one tab now and a second dose in 72 hours fluconazole 2019-05- No [id number] 150mg Take 1 [facility] 150 mg 06-03 tablet by ity of tablet 00:00: 05:59 mouth [place] 00 :00 every 72 [facility] for 2 doses. Take one tab now and a second dose in 72 hours fluconazole 2019-05- No [id number] 150mg Take 1 [facility] 150 mg 06-03 tablet by ity of tablet 00:00: 05:59 mouth [place] 00 :00 every 72 [facility] for 2 doses. Take one tab now and a second dose in 72 hours fluconazole 2019-05- No [id number] 150mg Take 1 [facility] 150 mg 06-03 tablet by ity of tablet 00:00: 05:59 mouth [place] 00 :00 every 72 [facility] for 2 doses. Take one tab now and a second dose in 72 hours PANTOPRAZOL 2020-1 Yes [id number] TAKE 1 [facility] E 40 mg EC 0-23 TABLET BY ity of tablet 00:00: MOUTH ONCE [place] 00 DAILY DO Medical NOT CRUSH Branch OR CHEW POTASSIUM 2020-1 Yes [id number] Take 1 [facility] CHLORIDE 10 0-23 tablet by ity of mEq CR 00:00: mouth once [place] tablet 00 daily Medical Branch PANTOPRAZOL 2020- Yes [id number] TAKE 1 [facility] E 40 mg EC 0-23 TABLET BY ity of tablet 00:00: MOUTH ONCE [place] 00 DAILY DO Medical NOT CRUSH Branch OR CHEW POTASSIUM 2020-1 Yes [id number] Take 1 [facility] CHLORIDE 10 0-23 tablet by ity of mEq CR 00:00: mouth once [place] tablet 00 daily Medical Branch PANTOPRAZOL 2020- Yes [id number] TAKE 1 [facility] E 40 mg EC 0-23 TABLET BY ity of tablet 00:00: MOUTH ONCE [place] 00 DAILY DO Medical NOT CRUSH Branch OR CHEW POTASSIUM 2020-1 Yes [id number] Take 1 [facility] CHLORIDE 10 0-23 tablet by ity of mEq CR 00:00: mouth once [place] tablet 00 daily Medical Branch PANTOPRAZOL 2020- Yes [id number] TAKE 1 [facility] E 40 mg EC 0-23 TABLET BY ity of tablet 00:00: MOUTH ONCE [place] 00 DAILY DO Medical NOT CRUSH Branch OR CHEW POTASSIUM 2020-1 Yes [id number] Take 1 [facility] CHLORIDE 10 0-23 tablet by ity of mEq CR 00:00: mouth once [place] tablet 00 daily Medical Branch PANTOPRAZOL 2020- Yes [id number] TAKE 1 [facility] E 40 mg EC 0-23 TABLET BY ity of tablet 00:00: MOUTH ONCE [place] 00 DAILY DO Medical NOT CRUSH Branch OR CHEW POTASSIUM 2020-1 Yes [id number] Take 1 [facility] CHLORIDE 10 0-23 tablet by ity of mEq CR 00:00: mouth once [place] tablet 00 daily Medical Branch PANTOPRAZOL 2020-1 Yes [id number] TAKE 1 [facility] E 40 mg EC 0-23 TABLET BY ity of tablet 00:00: MOUTH ONCE [place] 00 DAILY DO Medical NOT CRUSH Branch OR CHEW POTASSIUM 2020-1 Yes [id number] Take 1 [facility] CHLORIDE 10 0-23 tablet by ity of mEq CR 00:00: mouth once [place] tablet 00 daily Medical Branch PANTOPRAZOL 2020-1 Yes [id number] TAKE 1 [facility] E 40 mg EC 0-23 TABLET BY ity of tablet 00:00: MOUTH ONCE 00 DAILY DO Medical NOT CRUSH Branch OR CHEW POTASSIUM 2020- Yes [id number] Take 1 [facility] CHLORIDE 10 0-23 tablet by ity of mEq CR 00:00: mouth once [place] tablet 00 daily Medical Branch PANTOPRAZOL 2019- Yes [id number] TAKE 1 [facility] E 40 mg EC 0-23 TABLET BY ity of tablet 00:00: MOUTH ONCE [place] 00 DAILY DO Medical NOT CRUSH Branch OR CHEW POTASSIUM 2020-1 Yes [id number] Take 1 [facility] CHLORIDE 10 0-23 tablet by ity of mEq CR 00:00: mouth once [place] tablet 00 daily Medical Branch PANTOPRAZOL 2019-05 2020- No [id number] TAKE 1 [facility] E 40 mg EC 0-23 11-18 TABLET BY ity of tablet 00:00: 00:00 MOUTH [place]CE [place] 00 :00 DAILY DO Medical NOT CRUSH Branch OR CHEW POTASSIUM 2019- 2020- No [id number] Take 1 [facility] n[facility] CHLORIDE 10 0-23 11-18 tablet by it y of mEq CR 00:00: 00:00 mouth once [place] tablet 00 :00 daily Medical Branch gabapentin 2019- Yes [id number] 800mg Take 1 [facility] 800 mg 0-14 tablet by ity of tablet 00:00: mouth () Medical times Branch daily. gabapentin 2020- Yes [id number] 800mg Take 1 [facility] 800 mg 0-14 tablet by ity of tablet 00:00: mouth (three) Medical times Branch daily. gabapentin 2020- Yes [id number] 800mg Take 1 [facility] 800 mg 0-14 tablet by ity of tablet 00:00: mouth 3 (three) Medical times Branch daily. gabapentin 2020-1 Yes [id number] 800mg Take 1 [facility] 800 mg 0-14 tablet by ity of tablet 00:00: mouth 3 (three) Medical times Branch daily. gabapentin 2020-1 Yes [id number] 800mg Take 1 [facility] 800 mg 0-14 tablet by ity of tablet 00:00: mouth 3 (three) Medical times Branch daily. gabapentin 2020- Yes [id number] 800mg Take 1 [facility] 800 mg 0-14 tablet by ity of tablet 00:00: mouth 3 (three) Medical times Branch daily. gabapentin 2020-1 Yes [id number] 800mg Take 1 [facility] 800 mg 0-14 tablet by ity of tablet 00:00: mouth 3 [place] 00 (three) Medical times Branch daily. gabapentin 2020-1 Yes [id number] 800mg Take 1 [facility] 800 mg 0-14 tablet by ity of tablet 00:00: mouth 3 [place] 00 (three) Medical times Branch daily. gabapentin 2020-1 2020- No [id number] 800mg Take 1 [facility] 800 mg 0-14 11-16 tablet by ity of tablet 00:00: 00:00 mouth 3 [place] 00 :00 (three) Medical times Branch daily. FUROSEMIDE 2020-0 Yes [id number] Take 1 U nivers 20 mg 8-18 tablet by ity of tablet 00:00: mouth once [place] daily Medical Branch FUROSEMIDE 2020-0 Yes [id number] Take 1 [facility] nivers 20 mg 8-18 tablet by ity of tablet 00:00: mouth once [place] daily Medical Branch FUROSEMIDE 2020-0 Yes [id number] Take 1 [facility] nivers 20 mg 8-18 tablet by ity of tablet 00:00: mouth once [place] daily Medical Branch FUROSEMIDE 2020-0 Yes [id number] Take 1 [facility] nivers 20 mg 8-18 tablet by ity of tablet 00:00: mouth once [place] daily Medical Branch FUROSEMIDE 2020-0 Yes [id number] Take 1 U nivers 20 mg 8-18 tablet by ity of tablet 00:00: mouth once [place] daily Medical Branch FUROSEMIDE 2020-0 Yes [id number] Take 1 U nivers 20 mg 8-18 tablet by ity of tablet 00:00: mouth once [place] daily Medical Branch FUROSEMIDE 2020-0 Yes [id number] Take 1 U nivers 20 mg 8-18 tablet by ity of tablet 00:00: mouth once [place] daily Medical Branch FUROSEMIDE 2020-0 Yes [id number] Take 1 U nivers 20 mg 8-18 tablet by ity of tablet 00:00: mouth once [place] daily Medical Branch FUROSEMIDE 2020-0 Yes [id number] Take 1 U nivers 20 mg 8-18 tablet by ity of tablet 00:00: mouth once [place] daily Medical Branch FUROSEMIDE 2020-0 Yes [id number] Take 1 U nivers 20 mg 8-18 tablet by ity of tablet 00:00: mouth once [place] daily Medical Branch FUROSEMIDE 2020-0 Yes [id number] Take 1 U nivers 20 mg 8-18 tablet by ity of tablet 00:00: mouth once 00 daily Medical Branch FUROSEMIDE 2020-0 Yes [id number] Take 1 U nivers 20 mg 8-18 tablet by ity of tablet 00:00: mouth once 00 daily Medical Branch FUROSEMIDE 2020-0 2020- No [id number] Take 1 [facility] 20 mg 8-18 11-18 tablet by ity of tablet 00:00: 00:00 mouth once [place] 00 :00 daily Medical Branch fluconazole 2020-0 2020- No [id number] 150mg Take 1 [facility] 150 mg 8-14 08-15 tablet by ity of tablet 00:00: 04:59 mouth once [place] 00 :00 now for 1 Medical dose. Branch fluconazole 2020-0 2020- No [id number] 150mg Take 1 [facility] 150 mg 8-14 08-15 tablet by ity of tablet 00:00: 04:59 mouth once [place] 00 :00 now for 1 Medical dose. Branch gabapentin 2020-0 Yes [id number] 800mg Take 1 [facility] 800 mg 7-15 tablet by ity of tablet 00:00: mouth 3 ([facility]) Medical times Branch daily. gabapentin 2020-0 Yes [id number] 800mg Take 1 [facility] 800 mg 7-15 tablet by ity of tablet 00:00: mouth ([facility]) Medical times Branch daily. gabapentin 2020-0 Yes [id number] 800mg Take 1 [facility] 800 mg 7-15 tablet by ity of tablet 00:00: mouth (three) Medical times Branch daily. gabapentin 2020-0 Yes [id number] 800mg Take 1 [facility] 800 mg 7-15 tablet by ity of tablet 00:00: mouth (three) Medical times Branch daily. gabapentin 2020-0 Yes [id number] 800mg Take 1 [facility] 800 mg 7-15 tablet by ity of tablet 00:00: mouth (three) Medical times Branch daily. gabapentin 2020-0 Yes [id number] 800mg Take 1 [facility] 800 mg 7-15 tablet by ity of tablet 00:00: mouth 3 (three) Medical times Branch daily. gabapentin 2020-0 Yes [id number] 800mg Take 1 [facility] 800 mg 7-15 tablet by ity of tablet 00:00: mouth (three) Medical times Branch daily. gabapentin 2020-0 2020- No [id number] 800mg Take 1 [facility] 800 mg 7-15 10-14 tablet by ity of tablet 00:00: 00:00 mouth 3 [place] 00 :00 (three) Medical times Branch daily. metFORMIN 2020-0 Yes 1000mg Take 2 [facility] ers 500 mg 7-09 tablets by ity of tablet 00:00: mouth 2 [place] 00 (two) Medical times Branch daily with meals. pantoprazol 2020-0 Yes [id number] 40mg Take 1 [facility] e 40 mg EC 7-09 tablet by ity of tablet 00:00: mouth [place] 00 daily. Do Medical not Crush Branch or Chew DULOXETINE 2020-0 Yes [id number] Take 1 [facility] 30 mg 7-09 capsule by ity of capsule 00:00: mouth once [place] 00 daily Medical Branch metFORMIN 2020-0 Yes 1000mg Take 2 [facility] ers 500 mg 7-09 tablets by ity of tablet 00:00: mouth 2 [place] 00 (two) Medical times Branch daily with meals. POTASSIUM 2020-0 Yes [id number] Take 1 [facility]i CHLORIDE 10 7-09 tablet by ity of mEq CR 00:00: mouth once [place] tablet 00 daily Medical Branch pantoprazol 2020-0 Yes [id number] 40mg Take 1 [facility] e 40 mg EC 7-09 tablet by ity of tablet 00:00: mouth [place] 00 daily. Do Medical not Crush Branch or Chew DULOXETINE 2020-0 Yes [id number] Take 1 [facility] 30 mg 7-09 capsule by ity of capsule 00:00: mouth once [place] 00 daily Medical Branch metFORMIN 2020-0 Yes 1000mg Take 2 [facility] ers 500 mg 7-09 tablets by ity of tablet 00:00: mouth 2 (two) Medical times Branch daily with meals. POTASSIUM 2020-0 Yes [id number] Take 1 [facility]i CHLORIDE 10 7-09 tablet by ity of mEq CR 00:00: mouth once [place] tablet 00 daily Medical Branch pantoprazol 2020-0 Yes [id number] 40mg Take 1 [facility] e 40 mg EC 7-09 tablet by ity of tablet 00:00: mouth [place] 00 daily. Do Medical not Crush Branch or Chew DULOXETINE 2020-0 Yes [id number] Take 1 [facility] 30 mg 7-09 capsule by ity of capsule 00:00: mouth once [place] 00 daily Medical Branch metFORMIN 2020-0 Yes 1000mg Take 2 [facility] ers 500 mg 7-09 tablets by ity of tablet 00:00: mouth 2 (two) Medical times Branch daily with meals. POTASSIUM 2020-0 Yes [id number] Take 1 [facility]i CHLORIDE 10 7-09 tablet by ity of mEq CR 00:00: mouth once [place] tablet 00 daily Medical Branch pantoprazol 2020-0 Yes [id number] 40mg Take 1 [facility] e 40 mg EC 7-09 tablet by ity of tablet 00:00: mouth [place] 00 daily. Do Medical not Crush Branch or Chew DULOXETINE 2020-0 Yes [id number] Take 1 [facility] 30 mg 7-09 capsule by ity of capsule 00:00: mouth once [place] 00 daily Medical Branch metFORMIN 2020-0 Yes 1000mg Take 2 [facility] ers 500 mg 7-09 tablets by ity of tablet 00:00: mouth 2 (two) Medical times Branch daily with meals. POTASSIUM 2020-0 Yes [id number] Take 1 [facility] CHLORIDE 10 7-09 tablet by ity of mEq CR 00:00: mouth once [place] tablet 00 daily Medical Branch pantoprazol 2020-0 Yes [id number] 40mg Take 1 [facility] e 40 mg EC 7-09 tablet by ity of tablet 00:00: mouth 00 daily. Do Medical not Crush Branch or Chew DULOXETINE 2020-0 Yes [id number] Take 1 [facility] 30 mg 7-09 capsule by ity of capsule 00:00: mouth once [place] 00 daily Medical Branch metFORMIN 2020-0 Yes 1000mg Take 2 [facility] ers 500 mg 7-09 tablets by ity of tablet 00:00: mouth (two) Medical times Branch daily with meals. POTASSIUM 2020-0 Yes [id number] Take 1 [facility] CHLORIDE 10 7-09 tablet by ity of mEq CR 00:00: mouth once [place] tablet 00 daily Medical Branch pantoprazol 2020-0 Yes [id number] 40mg Take 1 [facility] e 40 mg EC 7-09 tablet by ity of tablet 00:00: mouth [place] 00 daily. Do Medical not Crush Branch or Chew DULOXETINE 2020-0 Yes [id number] Take 1 [facility] 30 mg 7-09 capsule by ity of capsule 00:00: mouth once [place] 00 daily Medical Branch metFORMIN 2020-0 Yes 1000mg Take 2 [facility] ers 500 mg 7-09 tablets by ity of tablet 00:00: mouth 2 (two) Medical times Branch daily with meals. POTASSIUM 2020-0 Yes [id number] Take 1 [facility] CHLORIDE 10 7-09 tablet by ity of mEq CR 00:00: mouth once [place] tablet 00 daily Medical Branch pantoprazol 2020-0 Yes [id number] 40mg Take 1 [facility] e 40 mg EC 7-09 tablet by ity of tablet 00:00: mouth [place] 00 daily. Do Medical not Crush Branch or Chew DULOXETINE 2020-0 Yes [id number] Take 1 [facility] 30 mg 7-09 capsule by ity of capsule 00:00: mouth once [place] 00 daily Medical Branch metFORMIN 2020-0 Yes 1000mg Take 2 [facility] ers 500 mg 7-09 tablets by ity of tablet 00:00: mouth 2 (two) Medical times Branch daily with meals. POTASSIUM 2020-0 Yes [id number] Take 1 [facility] CHLORIDE 10 7-09 tablet by ity of mEq CR 00:00: mouth once [place] tablet 00 daily Medical Branch pantoprazol 2020-0 Yes [id number] 40mg Take 1 [facility] e 40 mg EC 7-09 tablet by ity of tablet 00:00: mouth 00 daily. Do Medical not Crush Branch or Chew DULOXETINE 2020-0 Yes [id number] Take 1 [facility] 30 mg 7-09 capsule by ity of capsule 00:00: mouth once [place] 00 daily Medical Branch metFORMIN 2020-0 Yes 1000mg Take 2 [facility] ers 500 mg 7-09 tablets by ity of tablet 00:00: mouth 2 (two) Medical times Branch daily with meals. POTASSIUM 2020-0 Yes [id number] Take 1 [facility] CHLORIDE 10 7-09 tablet by ity of mEq CR 00:00: mouth once [place] tablet 00 daily Medical Branch pantoprazol 2020-0 Yes [id number] 40mg Take 1 [facility] e 40 mg EC 7-09 tablet by ity of tablet 00:00: mouth 00 daily. Do Medical not Crush Branch or Chew DULOXETINE 2020-0 Yes [id number] Take 1 [facility] 30 mg 7-09 capsule by ity of capsule 00:00: mouth once [place] 00 daily Medical Branch metFORMIN 2020-0 Yes 1000mg Take 2 [facility] ers 500 mg 7-09 tablets by ity of tablet 00:00: mouth 2 (two) Medical times Branch daily with meals. POTASSIUM 2020-0 Yes [id number] Take 1 [facility] CHLORIDE 10 7-09 tablet by ity of mEq CR 00:00: mouth once [place] tablet 00 daily Medical Branch DULOXETINE 2020-0 Yes [id number] Take 1 [facility] 30 mg 7-09 capsule by ity of capsule 00:00: mouth once [place] 00 daily Medical Branch metFORMIN 2020-0 Yes 1000mg Take 2 [facility] ers 500 mg 7-09 tablets by ity of tablet 00:00: mouth 2 [place] (two) Medical times Branch daily with meals. DULOXETINE 2020-0 Yes [id number] Take 1 [facility] 30 mg 7-09 capsule by ity of capsule 00:00: mouth once [place] 00 daily Medical Branch metFORMIN 2020-0 Yes 1000mg Take 2 [facility] ers 500 mg 7-09 tablets by ity of tablet 00:00: mouth 2 [place] (two) Medical times Branch daily with meals. DULOXETINE 2020-0 Yes [id number] Take 1 [facility] 30 mg 7-09 capsule by ity of capsule 00:00: mouth once [place] 00 daily Medical Branch metFORMIN 2020-0 Yes 1000mg Take 2 [facility] ers 500 mg 7-09 tablets by ity of tablet 00:00: mouth 2 [place] (two) Medical times Branch daily with meals. DULOXETINE 2020-0 Yes [id number] Take 1 [facility] 30 mg 7-09 capsule by ity of capsule 00:00: mouth once [place] 00 daily Medical Branch metFORMIN 2020-0 Yes 1000mg Take 2 [facility] ers 500 mg 7-09 tablets by ity of tablet 00:00: mouth 2 [place] (two) Medical times Branch daily with meals. DULOXETINE 2020-0 Yes [id number] Take 1 [facility] 30 mg 7-09 capsule by ity of capsule 00:00: mouth once [place] 00 daily Medical Branch metFORMIN 2020-0 Yes 1000mg Take 2 [facility] ers 500 mg 7-09 tablets by ity of tablet 00:00: mouth 2 [place] (two) Medical times Branch daily with meals. DULOXETINE 2020-0 Yes [id number] Take 1 [facility] 30 mg 7-09 capsule by ity of capsule 00:00: mouth once [place] 00 daily Medical Branch metFORMIN 2020-0 Yes 1000mg Take 2 [facility] ers 500 mg 7-09 tablets by ity of tablet 00:00: mouth 2 [place] (two) Medical times Branch daily with meals. DULOXETINE 2020-0 Yes [id number] Take 1 [facility] 30 mg 7-09 capsule by ity of capsule 00:00: mouth once [place] 00 daily Medical Branch metFORMIN 2020-0 Yes 1000mg Take 2 [facility] ers 500 mg 7-09 tablets by ity of tablet 00:00: mouth [place] (two) Medical times Branch daily with meals. DULOXETINE 2020-0 Yes [id number] Take 1 [facility] 30 mg 7-09 capsule by ity of capsule 00:00: mouth once [place] 00 daily Medical Branch metFORMIN 2020-0 Yes 1000mg Take 2 [facility] ers 500 mg 7-09 tablets by ity of tablet 00:00: mouth 2 [place] (two) Medical times Branch daily with meals. DULOXETINE 2020-0 Yes [id number] Take 1 [facility] 30 mg 7-09 capsule by ity of capsule 00:00: mouth once [place] 00 daily Medical Branch metFORMIN 2020-0 Yes 1000mg Take 2 [facility] ers 500 mg 7-09 tablets by ity of tablet 00:00: mouth [place] (two) Medical times Branch daily with meals. DULOXETINE 2020-0 Yes [id number] Take 1 [facility] 30 mg 7-09 capsule by ity of capsule 00:00: mouth once [place] daily Medical Branch metFORMIN 2020-0 Yes 1000mg Take 2 [facility] ers 500 mg 7-09 tablets by ity of tablet 00:00: mouth [place] ([facility]) Medical times Branch daily with meals. DULOXETINE 2020-0 Yes [id number] Take 1 [facility] 30 mg 7-09 capsule by ity of capsule 00:00: mouth once [place] 00 daily Medical Branch metFORMIN 2020-0 Yes 1000mg Take 2 [facility] ers 500 mg 7-09 tablets by ity of tablet 00:00: mouth [place] (two) Medical times Branch daily with meals. DULOXETINE 2020-0 Yes [id number] Take 1 [facility] 30 mg 7-09 capsule by ity of capsule 00:00: mouth once [place] 00 daily Medical Branch metFORMIN 2020-0 Yes 1000mg Take 2 [facility] ers 500 mg 7-09 tablets by ity of tablet 00:00: mouth [place] (two) Medical times Branch daily with meals. DULOXETINE 2020-0 Yes [id number] Take 1 [facility] 30 mg 7-09 capsule by ity of capsule 00:00: mouth once [place] 00 daily Medical Branch metFORMIN 2020-0 Yes 1000mg Take 2 [facility] ers 500 mg 7-09 tablets by ity of tablet 00:00: mouth (two) Medical times Branch daily with meals. DULOXETINE 2020-0 Yes [id number] Take 1 [facility] 30 mg 7-09 capsule [...] daily with meals. DULOXETINE 2019-0 2020- No [id number] Take 1 [facility] 30 mg 12-04 capsule by ity of capsule 00:00: 00:00 mouth once [place] 00 :00 daily Medical Branch DULOXETINE 2019-0 2020- No [id number] Take 1 [facility] 30 mg 12-04 capsule by ity of capsule 00:00: 00:00 mouth once [place] 00 :00 daily Medical Branch pantoprazol 2019-0 2020- No [id number] 40mg Take 1 [facility] e 40 mg EC 12-04 tablet by ity of tablet 00:00: 00:00 mouth [place] 00 :00 daily. Do Medical not Crush Branch or Chew POTASSIUM 2020-0 2020- No [id number] Take 1 U nivers CHLORIDE 10 12-04 tablet by it y of mEq CR 00:00: 00:00 mouth once [place] tablet 00 :00 daily Medical Branch PANTOPRAZOL 2020-0 Yes [id number] Take 1 [facility] E 40 mg EC 6-08 tablet by ity of tablet 00:00: mouth once [place] 00 daily Medical Branch POTASSIUM 2020-0 Yes [id number] Take 1 [facility] CHLORIDE 10 6-08 tablet by ity of mEq CR 00:00: mouth once [place] tablet 00 daily Medical Branch PANTOPRAZOL 2020-0 Yes [id number] Take 1 [facility] E 40 mg EC 6-08 tablet by ity of tablet 00:00: mouth once [place] 00 daily Medical Branch POTASSIUM 2020-0 Yes [id number] Take 1 [facility] CHLORIDE 10 6-08 [...] 5-15 tablet by ity of tablet 20:19: [facility] 33 daily. Medical Branch GABAPENTIN 2020-0 Yes [id number] TAKE 1 [facility] 800 mg 5-05 TABLET BY ity of tablet 00:00: [facility] 00 THREE Medical TIMES Branch DAILY GABAPENTIN 2020-0 Yes [id number] TAKE 1 [facility] 800 mg 5-05 TABLET BY ity of tablet 00:00: [facility] 00 THREE Medical TIMES Branch DAILY GABAPENTIN 2020-0 Yes [id number] TAKE 1 Univers 800 mg 5-05 TABLET BY ity of tablet 00:00: [facility] 00 THREE Medical TIMES Branch DAILY GABAPENTIN 2020-0 Yes [id number] TAKE 1 [facility] 800 mg 5-05 TABLET BY ity of tablet 00:00: [facility] 00 THREE Medical TIMES Branch DAILY GABAPENTIN 2020-0 Yes [id number] TAKE 1 [facility] 800 mg 5-05 TABLET BY ity of tablet 00:00: [facility] 00 THREE Medical TIMES Branch DAILY GABAPENTIN 2020-0 Yes [id number] TAKE 1 Univers 800 mg 5-05 TABLET BY ity of tablet 00:00: [facility] 00 THREE Medical TIMES Branch DAILY GABAPENTIN 2020-0 Yes [id number] TAKE 1 [facility] 800 mg 5-05 TABLET BY ity of tablet 00:00: [facility] 00 THREE Medical TIMES Branch DAILY GABAPENTIN 2020-0 Yes [id number] TAKE 1 [facility] 800 mg 5-05 TABLET BY ity of tablet 00:00: [facility] 00 THREE Medical TIMES Branch DAILY GABAPENTIN 2020-0 Yes [id number] TAKE 1 [facility] 800 mg 5-05 TABLET BY ity of tablet 00:00: [facility] 00 [facility] Medical TIMES Branch DAILY GABAPENTIN 2020-0 Yes [id number] TAKE 1 Univers 800 mg 5-05 TABLET BY ity of tablet 00:00: [facility] 00 [facility] Medical TIMES Branch DAILY GABAPENTIN 2020-0 2020- No [id number] TAKE 1 Univers 800 mg 5-05 07-15 TABLET BY ity of tablet 00:00: 00:00 [facility] 00 :00 [facility] Medical TIMES Branch DAILY metoprolol 2020-0 Yes 100mg 100 mg, Uni vers succinate 3-21 Oral, ity of XL (TOPROL 14:00: DAILY, [place] XL) tablet 00 First dose Med ical 100 mg on Sat Branch 08/17/19 at 0900, Until Discontinu ed, Routine atorvastati 2020-0 Yes 80mg 80 mg, Univ ers n (LIPITOR) 3-21 Oral, QHS, it y of tablet 80 02:00: First dose [place] mg 00 on Fri Medical 08/16/19 at [place] 2100, Until Discontinu ed, Routine metoprolol 2020-0 Yes 50mg 50 mg, Unive rs tartrate 3-21 Oral, BID, ity o f (LOPRESSOR) 01:00: First dose [place] tablet 50 00 on Fri Medical mg 08/16/19 at [place] 2000, Until Discontinu ed, Routine metoprolol 2020-0 Yes [id number] 100mg Take 1 Univers succinate 3-21 07 tablet by ity o f XL 100 mg 00:00: mouth [place] 24 hr 00 daily. Medical tablet [place] azithromyci 2020-0 Yes [id number] 250mg Take 1 Univers n 250 mg 3-21 07 tablet by ity of tablet 00:00: mouth [place] 00 daily. Medical Take 250 Branch mg tablet once daily metoprolol 2020-0 Yes [id number] 100mg Take 1 Univers succinate 3-21 07 tablet by ity o f XL 100 mg 00:00: mouth [place] 24 hr 00 daily. Medical tablet [place] azithromyci 2020-0 Yes [id number] 250mg Take 1 Univers n 250 mg 3-21 07 tablet by ity of tablet 00:00: mouth [place] 00 daily. Medical Take 250 Branch mg tablet once daily metoprolol 2020-0 Yes [id number] 100mg Take 1 Univers succinate 3-21 07 tablet by ity o f XL 100 mg 00:00: mouth [place] 24 hr 00 daily. Medical tablet [place] azithromyci 2020-0 Yes [id number] 250mg Take 1 [facility] n 250 mg 3-21 07 tablet by ity of tablet 00:00: mouth [place] 00 daily. Medical Take 250 Branch mg tablet once daily metoprolol 2020-0 Yes [id number] 100mg Take 1 Univers succinate 3-21 07 tablet by ity o f XL 100 mg 00:00: mouth [place] 24 hr 00 daily. Medical tablet [place] azithromyci 2020-0 Yes [id number] 250mg Take 1 [facility] n 250 mg 3-21 07 tablet by ity of tablet 00:00: mouth [place] 00 daily. Medical Take 250 Branch mg tablet once daily metoprolol 2020-0 Yes [id number] 100mg Take 1 Univers succinate 3-21 07 tablet by ity o f XL 100 mg 00:00: mouth [place] 24 hr 00 daily. Medical tablet Branch azithromyci 2020-0 Yes [id number] 250mg Take 1 [facility] n 250 mg 3-21 07 tablet by ity of tablet 00:00: mouth [place] 00 daily. Medical Take 250 Branch mg tablet once daily metoprolol 2020-0 Yes [id number] 100mg Take 1 Univers succinate 3-21 07 tablet by ity o f XL 100 mg 00:00: mouth [place] 24 hr 00 daily. Medical tablet Branch azithromyci 2020-0 Yes [id number] 250mg Take 1 Univers n 250 mg 3-21 07 tablet by ity of tablet 00:00: mouth [place] 00 daily. Medical Take 250 Branch mg tablet once daily metoprolol 2020-0 Yes [id number] 100mg Take 1 Univers succinate 3-21 07 tablet by ity o f XL 100 mg 00:00: mouth [place] 24 hr 00 daily. Medical tablet Branch azithromyci 2020-0 Yes [id number] 250mg Take 1 Univers n 250 mg 3-21 07 tablet by ity of tablet 00:00: mouth [place] 00 daily. Medical Take 250 Branch mg tablet once daily metoprolol 2020-0 Yes [id number] 100mg Take 1 Univers succinate 3-21 07 tablet by ity o f XL 100 mg 00:00: mouth [place] 24 hr 00 daily. Medical tablet Branch azithromyci 2020-0 Yes [id number] 250mg Take 1 Univers n 250 mg 3-21 07 tablet by ity of tablet 00:00: mouth [place] 00 daily. Medical Take 250 Branch mg tablet once daily metoprolol 2020-0 Yes [id number] 100mg Take 1 Univers succinate 3-21 07 tablet by ity o f XL 100 mg 00:00: mouth [place] 24 hr 00 daily. Medical tablet Branch azithromyci 2020-0 Yes [id number] 250mg Take 1 Univers n 250 mg 3-21 07 tablet by ity of tablet 00:00: mouth [place] 00 daily. Medical Take 250 Branch mg tablet once daily metoprolol 2020-0 Yes [id number] 100mg Take 1 Univers succinate 3-21 07 tablet by ity o f XL 100 mg 00:00: mouth [place] 24 hr 00 daily. Medical tablet Branch azithromyci 2020-0 Yes [id number] 250mg Take 1 Univers n 250 mg 3-21 07 tablet by ity of tablet 00:00: mouth [place] 00 daily. Medical Take 250 Branch mg tablet once daily metoprolol 2020-0 Yes [id number] 100mg Take 1 Univers succinate 3-21 07 tablet by ity o f XL 100 mg 00:00: mouth [place] 24 hr 00 daily. Medical tablet Branch azithromyci 2020-0 Yes [id number] 250mg Take 1 Univers n 250 mg 3-21 07 tablet by ity of tablet 00:00: mouth [place] 00 daily. Medical Take 250 Branch mg tablet once daily metoprolol 2020-0 Yes [id number] 100mg Take 1 Univers succinate 3-21 07 tablet by ity o f XL 100 mg 00:00: mouth [place] 24 hr 00 daily. Medical tablet Branch azithromyci 2020-0 Yes [id number] 250mg Take 1 Univers n 250 mg 3-21 07 tablet by ity of tablet 00:00: mouth [place] 00 daily. Medical Take 250 Branch mg tablet once daily metoprolol 2020-0 Yes [id number] 100mg Take 1 Univers succinate 3-21 07 tablet by ity o f XL 100 mg 00:00: mouth [place] 24 hr 00 daily. Medical tablet Branch azithromyci 2020-0 Yes [id number] 250mg Take 1 Univers n 250 mg 3-21 07 tablet by ity of tablet 00:00: mouth [place] 00 daily. Medical Take 250 Branch mg tablet once daily metoprolol 2020-0 Yes [id number] 100mg Take 1 Univers succinate 3-21 07 tablet by ity o f XL 100 mg 00:00: mouth [place] 24 hr 00 daily. Medical tablet Branch azithromyci 2020-0 Yes [id number] 250mg Take 1 Univers n 250 mg 3-21 07 tablet by ity of tablet 00:00: mouth [place] 00 daily. Medical Take 250 Branch mg tablet once daily metoprolol 2020-0 Yes [id number] 100mg Take 1 Univers succinate 3-21 tablet by ity o f XL 100 mg 00:00: mouth [place] 24 hr 00 daily. Medical tablet Branch azithromyci 2020-0 Yes [id number] 250mg Take 1 Univers n 250 mg 3-21 tablet by ity of tablet 00:00: mouth [place] 00 daily. Medical Take 250 Branch mg tablet once daily metoprolol 2020-0 Yes [id number] 100mg Take 1 Univers succinate 3-21 tablet by ity o f XL 100 mg 00:00: mouth [place] 24 hr 00 daily. Medical tablet Branch azithromyci 2020-0 Yes [id number] 250mg Take 1 Univers n 250 mg 3-21 tablet by ity of tablet 00:00: mouth [place] 00 daily. Medical Take 250 Branch mg tablet once daily metoprolol 2020-0 Yes [id number] 100mg Take 1 Univers succinate 3-21 tablet by ity o f XL 100 mg 00:00: mouth [place] 24 hr 00 daily. Medical tablet Branch azithromyci 2020-0 Yes [id number] 250mg Take 1 Univers n 250 mg 3-21 tablet by ity of tablet 00:00: mouth [place] 00 daily. Medical Take 250 Branch mg tablet once daily metoprolol 2020-0 Yes [id number] 100mg Take 1 Univers succinate 3-21 tablet by ity o f XL 100 mg 00:00: mouth [place] 24 hr 00 daily. Medical tablet Branch metoprolol 2020-0 Yes [id number] 100mg Take 1 [facility] succinate 3-21 tablet by ity o f XL 100 mg 00:00: mouth [place] 24 hr 00 daily. Medical tablet Branch metoprolol 2020-0 Yes [id number] 100mg Take 1 Univers succinate 3-21 tablet by ity o f XL 100 mg 00:00: mouth [place] 24 hr 00 daily. Medical tablet Branch metoprolol 2020-0 Yes [id number] 100mg Take 1 Univers succinate 3-21 tablet by ity o f XL 100 mg 00:00: mouth [place] 24 hr 00 daily. Medical tablet Branch metoprolol 2020-0 Yes [id number] 100mg Take 1 Univers succinate 3-21 tablet by ity o f XL 100 mg 00:00: mouth [place] 24 hr 00 daily. Medical tablet Branch metoprolol 2020-0 Yes [id number] 100mg Take 1 Univers succinate 3-21 tablet by ity o f XL 100 mg 00:00: mouth [place] 24 hr 00 daily. Medical tablet Branch metoprolol 2020-0 Yes [id number] 100mg Take 1 Univers succinate 3-21 tablet by ity o f XL 100 mg 00:00: mouth [place] 24 hr 00 daily. Medical tablet Branch metoprolol 2020-0 Yes [id number] 100mg Take 1 Univers succinate 3-21 tablet by ity o f XL 100 mg 00:00: mouth [place] 24 hr 00 daily. Medical tablet Branch metoprolol 2020-0 Yes [id number] 100mg Take 1 Univers succinate 3-21 tablet by ity o f XL 100 mg 00:00: mouth [place] 24 hr 00 daily. Medical tablet Branch metoprolol 2020-0 Yes [id number] 100mg Take 1 Univers succinate 3-21 tablet by ity o f XL 100 mg 00:00: mouth [place] 24 hr 00 daily. Medical tablet Branch metoprolol 2020-0 Yes [id number] 100mg Take 1 Univers succinate 3-21 tablet by ity o f XL 100 mg 00:00: mouth [place] 24 hr 00 daily. Medical tablet Branch metoprolol 2020-0 Yes [id number] 100mg Take 1 Univers succinate 3-21 tablet by ity o f XL 100 mg 00:00: mouth [place] 24 hr 00 daily. Medical tablet Branch metoprolol 2020-0 Yes [id number] 100mg Take 1 Univers succinate 3-21 tablet by ity o f XL 100 mg 00:00: mouth [place] 24 hr 00 daily. Medical tablet Branch metoprolol 2020-0 Yes [id number] 100mg Take 1 Univers succinate 3-21 tablet by ity o f XL 100 mg 00:00: mouth [place] 24 hr 00 daily. Medical tablet Branch metoprolol 2020-0 Yes [id number] 100mg Take 1 Univers succinate 3-21 tablet by ity o f XL 100 mg 00:00: mouth [place] 24 hr 00 daily. Medical tablet Branch metoprolol 2020-0 Yes [id number] 100mg Take 1 Univers succinate 3-21 tablet by ity o f XL 100 mg 00:00: mouth [place] 24 hr 00 daily. Medical tablet Branch metoprolol 2020-0 Yes [id number] 100mg Take 1 Univers succinate 3-21 tablet by ity o f XL 100 mg 00:00: mouth [place] 24 hr 00 daily. Medical tablet Branch metoprolol 2020-0 Yes [id number] 100mg Take 1 Univers succinate 3-21 tablet by ity o f XL 100 mg 00:00: mouth [place] 24 hr 00 daily. Medical tablet Branch metoprolol 2020-0 Yes [id number] 100mg Take 1 Univers succinate 3-21 tablet by ity o f XL 100 mg 00:00: mouth [place] 24 hr 00 daily. Medical tablet Branch metoprolol 2020-0 Yes [id number] 100mg Take 1 Univers succinate 3-21 tablet by ity o f XL 100 mg 00:00: mouth [place] 24 hr 00 daily. Medical tablet Branch metoprolol 2020-0 Yes [id number] 100mg Take 1 Univers succinate 3-21 tablet by ity o f XL 100 mg 00:00: mouth [place] 24 hr 00 daily. Medical tablet Branch metoprolol 2020-0 Yes [id number] 100mg Take 1 Univers succinate 3-21 tablet by ity o f XL 100 mg 00:00: mouth [place] 24 hr 00 daily. Medical tablet Branch metoprolol 2020-0 Yes [id number] 100mg Take 1 Univers succinate 3-21 tablet by ity o f XL 100 mg 00:00: mouth [place] 24 hr 00 daily. Medical tablet Branch metoprolol 2020-0 Yes [id number] 100mg Take 1 Univers succinate 3-21 tablet by ity o f XL 100 mg 00:00: mouth [place] 24 hr 00 daily. Medical tablet Branch metoprolol 2020-0 Yes [id number] 100mg Take 1 [facility] succinate 3-21 tablet by ity o f XL 100 mg 00:00: mouth [place] 24 hr 00 daily. Medical tablet Branch metoprolol 2020-0 Yes [id number] 100mg Take 1 Univers succinate 3-21 07 tablet by ity o f XL 100 mg 00:00: mouth [place] 24 hr 00 daily. Medical tablet Branch azithromyci 2020-0 Yes [id number] 250mg Take 1 Univers n 250 mg 3-21 07 tablet by ity of tablet 00:00: mouth [place] 00 daily. Medical Take 250 Branch mg tablet once daily metoprolol 2020-0 Yes [id number] 100mg Take 1 Univers succinate 3-21 07 tablet by ity o f XL 100 mg 00:00: mouth [place] 24 hr 00 daily. Medical tablet Branch azithromyci 2019-0 Yes [id number] 250mg Take 1 Univers n 250 mg 3-21 07 tablet by ity of tablet 00:00: mouth [place] 00 daily. Medical Take 250 Branch mg tablet once daily metoprolol 2020-0 2020- No [id number] 100mg Take 1 Univers succinate 3-21 01-11 tablet by ity of XL 100 mg 00:00: 00:00 mouth [place] 24 hr 00 :00 daily. Medical tablet Branch azithromyci 2020-0 2019- No [id number] 250mg Take 1 Univers n 250 mg 3-21 08-14 tablet by ity o f tablet 00:00: 00:00 mouth [place] 00 :00 daily. Medical Take 250 Branch mg tablet once daily azithromyci 2019-0 2020- No [id number] 250mg Take 1 Univers n 250 mg [...] of tablet 16:51: mouth [place] 31 daily. [facility] Branch aspirin 81 2020-0 Yes 81mg Take 1 Unive rs mg chewable 3-20 tablet by ity of tablet 16:51: mouth [place] 31 daily. [facility] Branch aspirin 81 2020-0 Yes 81mg Take 1 Unive rs mg chewable 3-20 tablet by ity of tablet 16:51: mouth [place] 31 daily. [facility] Branch aspirin 81 2020-0 Yes 81mg Take 1 Unive rs mg chewable 3-20 tablet by ity of tablet 16:51: mouth [place] 31 daily. [facility] Branch aspirin 81 2020-0 Yes 81mg Take 1 Unive rs mg chewable 3-20 tablet by ity of tablet 16:51: mouth [place] 31 daily. [facility] Branch aspirin 81 2020-0 Yes 81mg Take 1 Unive rs mg chewable 3-20 tablet by ity of tablet 16:51: mouth [place] 31 daily. [facility] Branch aspirin 81 2020-0 Yes 81mg Take 1 Unive rs mg chewable 3-20 tablet by ity of tablet 16:51: mouth [place] 31 daily. [facility] Branch aspirin 81 2020-0 Yes 81mg Take 1 Unive rs mg chewable 3-20 tablet by ity of tablet 16:51: mouth [place] 31 daily. [facility] aspirin 81 2020-0 Yes 81mg Take 1 Unive rs mg chewable 3-20 tablet by ity of tablet 16:51: mouth [place] 31 daily. [facility] aspirin 2020- No 81mg Take 81 mg Uni vers (ASPIRIN 08-1520 by mouth ity of LOW DOSE) 16:51: 00:00 daily. [place] 81 mg EC 31 :00 Medical [facility] LORazepam 2019- No 1mg 1 mg, Univer s (ATIVAN) 08-15 Oral, ity of tablet 1 mg 00:30: 23:58 ONCE, 1 [place] 00 :00 dose, Esme [facility] 08/15/19 at [place] 1930, Routine clopidogreL Yes [id number] 75mg Take 1 Univers (PLAVIX) 75 3-20 tablet by ity of mg tablet 00:00: mouth [place] 00 daily. [facility] insulin NPH Yes [id number] Inject 84 Univers and regular 3-20 units AM, ity of human 70-30 00:00: 84 units [place] (NOVOLIN 00 PM Medical 70/30 U-100 [place] INSULIN) 100 unit/mL (70-30) injection atorvastati Yes [id number] 80mg Take 1 Univers n 80 mg 3-20 07 tablet by ity of tablet 00:00: mouth at [place] 00 bedtime. [facility] clopidogreL 2019-0 Yes [id number] 75mg Take 1 Univers (PLAVIX) 75 3-20 tablet by ity of mg tablet 00:00: mouth [place] 00 daily. [facility] insulin NPH Yes [id number] Inject 84 Univers and regular 3-20 units AM, ity of human 70-30 00:00: 84 units [place] (NOVOLIN 00 PM Medical 70/30 U-100 [place] INSULIN) 100 unit/mL (70-30) injection atorvastati 2019- Yes [id number] 80mg Take 1 Univers n 80 mg 3-20 07 tablet by ity of tablet 00:00: mouth at [place] 00 bedtime. [facility] clopidogreL 2019-0 Yes [id number] 75mg Take 1 Univers (PLAVIX) 75 3-20 tablet by ity of mg tablet 00:00: mouth [place] 00 daily. [facility] insulin NPH Yes [id number] Inject 84 Univers and regular 3-20 units AM, ity of human 70-30 00:00: 84 units [place] (NOVOLIN 00 PM Medical 70/30 U-100 Branch INSULIN) 100 unit/mL (70-30) injection atorvastati 2020-0 Yes [id number] 80mg Take 1 Univers n 80 mg 3-20 07 tablet by ity of tablet 00:00: mouth at 00 bedtime. Medical Branch clopidogreL 2020-0 Yes [id number] 75mg Take 1 Univers (PLAVIX) 75 3-20 tablet by ity of mg tablet 00:00: mouth daily. Medical Branch insulin NPH 2020-0 Yes [id number] Inject 84 Univers and regular 3-20 units AM, ity of human 7030 00:00: 84 units [place] (NOVOLIN 00 PM Medical 70/30 U-100 Branch INSULIN) 100 unit/mL (-30) injection atorvastati 2019-0 Yes [id number] 80mg Take 1 Univers n 80 mg 3-20 07 tablet by ity of tablet 00:00: mouth at bedtime. Medical Branch clopidogreL 2020-0 Yes [id number] 75mg Take 1 Univers (PLAVIX) 75 3-20 tablet by ity of mg tablet 00:00: mouth daily. Medical Branch insulin NPH 2019-0 Yes [id number] Inject 84 Univers and regular 3-20 units AM, ity of human 00:00: 84 units [place] (NOVOLIN 00 PM Medical 70/30 U-100 Branch INSULIN) 100 unit/mL (30) injection atorvastati 2019-0 Yes [id number] 80mg Take 1 Univers n 80 mg 3-20 07 tablet by ity of tablet 00:00: mouth at bedtime. Medical Branch clopidogreL 2020-0 Yes [id number] 75mg Take 1 Univers (PLAVIX) 75 3-20 tablet by ity of mg tablet 00:00: mouth daily. Medical Branch insulin NPH 2020-0 Yes [id number] Inject 84 Univers and regular 3-20 units AM, ity of human 30 00:00: 84 units [place] (NOVOLIN 00 PM Medical 70/30 U-100 Branch INSULIN) 100 unit/mL (70-30) injection atorvastati 2020-0 Yes [id number] 80mg Take 1 Univers n 80 mg 3-20 07 tablet by ity of tablet 00:00: mouth at [place] 00 bedtime. Medical Branch clopidogreL 2020-0 Yes [id number] 75mg Take 1 Univers (PLAVIX) 75 3-20 tablet by ity of mg tablet 00:00: mouth [place] 00 daily. Medical Branch insulin NPH 2020-0 Yes [id number] Inject 84 Univers and regular 3-20 units AM, ity of human 70-30 00:00: 84 units [place] (NOVOLIN 00 PM Medical 70/30 U-100 Branch INSULIN) 100 unit/mL (70-30) injection atorvastati 2020-0 Yes [id number] 80mg Take 1 Univers n 80 mg 3-20 07 tablet by ity of tablet 00:00: mouth at [place] 00 bedtime. Medical Branch clopidogreL 2020-0 Yes [id number] 75mg Take 1 Univers (PLAVIX) 75 3-20 tablet by ity of mg tablet 00:00: mouth [place] 00 daily. Medical Branch insulin NPH 2019-0 Yes [id number] Inject 84 Univers and regular 3-20 units AM, ity of human 7030 00:00: 84 units [place] (NOVOLIN 00 PM Medical 70/30 U-100 Branch INSULIN) 100 unit/mL (70-30) injection atorvastati 2019-0 Yes [id number] 80mg Take 1 Univers n 80 mg 3-20 07 tablet by ity of tablet 00:00: mouth at [place] 00 bedtime. Medical Branch clopidogreL 2020-0 Yes [id number] 75mg Take 1 Univers (PLAVIX) 75 3-20 tablet by ity of mg tablet 00:00: mouth 00 daily. Medical Branch insulin NPH 2019-0 Yes [id number] Inject 84 Univers and regular 3-20 units AM, ity of human 7030 00:00: 84 units [place] (NOVOLIN 00 PM Medical 70/30 U-100 Branch INSULIN) 100 unit/mL (70-30) injection atorvastati 2020-0 Yes [id number] 80mg Take 1 Univers n 80 mg 3-20 07 tablet by ity of tablet 00:00: mouth at [place] 00 bedtime. Medical Branch clopidogreL 2020-0 Yes [id number] 75mg Take 1 Univers (PLAVIX) 75 3-20 tablet by ity of mg tablet 00:00: mouth [place] 00 daily. Medical Branch insulin NPH 2019-0 Yes [id number] Inject 84 Univers and regular 3-20 units AM, ity of human 7030 00:00: 84 units [place] (NOVOLIN 00 PM Medical 70/30 U-100 Branch INSULIN) 100 unit/mL (70-30) injection atorvastati 2020-0 Yes [id number] 80mg Take 1 Univers n 80 mg 3-20 07 tablet by ity of tablet 00:00: mouth at [place] 00 bedtime. Medical Branch clopidogreL 2020-0 Yes [id number] 75mg Take 1 Univers (PLAVIX) 75 3-20 tablet by ity of mg tablet 00:00: mouth [place] 00 daily. Medical Branch insulin NPH 2020-0 Yes [id number] Inject 84 Univers and regular 3-20 units AM, ity of human 70-30 00:00: 84 units [place] (NOVOLIN 00 PM Medical 70/30 U-100 Branch INSULIN) 100 unit/mL (70-30) injection atorvastati 2020-0 Yes [id number] 80mg Take 1 Univers n 80 mg 3-20 07 tablet by ity of tablet 00:00: mouth at [place] 00 bedtime. Medical Branch clopidogreL 2020-0 Yes [id number] 75mg Take 1 Univers (PLAVIX) 75 3-20 tablet by ity of mg tablet 00:00: mouth [place] 00 daily. Medical Branch insulin NPH 2019-0 Yes [id number] Inject 84 Univers and regular 3-20 units AM, ity of human 7030 00:00: 84 units [place] (NOVOLIN 00 PM Medical 70/30 U-100 Branch INSULIN) 100 unit/mL (70-30) injection atorvastati 2020-0 Yes [id number] 80mg Take 1 Univers n 80 mg 3-20 07 tablet by ity of tablet 00:00: mouth at [place] 00 bedtime. Medical Branch clopidogreL 2020-0 Yes [id number] 75mg Take 1 Univers (PLAVIX) 75 3-20 tablet by ity of mg tablet 00:00: mouth [place] 00 daily. Medical Branch insulin NPH 2020-0 Yes [id number] Inject 84 Univers and regular 3-20 units AM, ity of human 70-30 00:00: 84 units [place] (NOVOLIN 00 PM Medical 70/30 U-100 Branch INSULIN) 100 unit/mL (70-30) injection atorvastati 2020-0 Yes [id number] 80mg Take 1 Univers n 80 mg 3-20 07 tablet by ity of tablet 00:00: mouth at [place] 00 bedtime. Medical Branch clopidogreL 2020-0 Yes [id number] 75mg Take 1 Univers (PLAVIX) 75 3-20 tablet by ity of mg tablet 00:00: mouth [place] 00 daily. Medical Branch insulin NPH 2019-0 Yes [id number] Inject 84 Univers and regular 3-20 units AM, ity of human 7030 00:00: 84 units [place] (NOVOLIN 00 PM Medical 70/30 U-100 Branch INSULIN) 100 unit/mL (70-30) injection atorvastati 2020-0 Yes [id number] 80mg Take 1 Univers n 80 mg 3-20 07 tablet by ity of tablet 00:00: mouth at bedtime. [facility] Branch clopidogreL 2020-0 Yes [id number] 75mg Take 1 Univers (PLAVIX) 75 3-20 tablet by ity of mg tablet 00:00: mouth 00 daily. [facility] Branch insulin NPH 2019-0 Yes [id number] Inject 84 Univers and regular 3-20 units AM, ity of human 00:00: 84 units [place] (NOVOLIN 00 PM Medical 70/30 U-100 Branch INSULIN) 100 unit/mL (70-30) injection atorvastati 2019-0 Yes [id number] 80mg Take 1 Univers n 80 mg 3-20 tablet by ity of tablet 00:00: mouth at bedtime. [facility] Branch clopidogreL 2020-0 Yes [id number] 75mg Take 1 Univers (PLAVIX) 75 3-20 tablet by ity of mg tablet 00:00: mouth daily. [facility] Branch insulin NPH 2019-0 Yes [id number] Inject 84 Univers and regular 3-20 units AM, ity of human 00:00: 84 units [place] (NOVOLIN 00 PM Medical 70/30 U-100 Branch INSULIN) 100 unit/mL (70-30) injection atorvastati 2020-0 Yes [id number] 80mg Take 1 Univers n 80 mg 3-20 tablet by ity of tablet 00:00: mouth at bedtime. [facility] Branch clopidogreL 2020-0 Yes [id number] 75mg Take 1 Univers (PLAVIX) 75 3-20 tablet by ity of mg tablet 00:00: mouth 00 daily. [facility] Branch insulin NPH 2019-0 Yes [id number] Inject 84 Univers and regular 3-20 units AM, ity of human 70-30 00:00: 84 units [place] (NOVOLIN 00 PM Medical 70/30 U-100 Branch INSULIN) 100 unit/mL (70-30) injection atorvastati 2020-0 Yes [id number] 80mg Take 1 Univers n 80 mg 3-20 tablet by ity of tablet 00:00: mouth at [place] 00 bedtime. Medical Branch clopidogreL 2020-0 Yes [id number] 75mg Take 1 Univers (PLAVIX) 75 3-20 tablet by ity of mg tablet 00:00: mouth [place] 00 daily. Medical Branch insulin NPH 2020-0 Yes [id number] Inject 84 Univers and regular 3-20 units AM, ity of human 7030 00:00: 84 units [place] (NOVOLIN 00 PM Medical 70/30 U-100 Branch INSULIN) 100 unit/mL (70-30) injection atorvastati 2020-0 Yes [id number] 80mg Take 1 Univers n 80 mg 3-20 tablet by ity of tablet 00:00: mouth at bedtime. Medical Branch clopidogreL 2019-0 Yes [id number] 75mg Take 1 Univers (PLAVIX) 75 3-20 tablet by ity of mg tablet 00:00: mouth 00 daily. Medical Branch insulin NPH 2019-0 Yes [id number] Inject 84 Univers and regular 3-20 units AM, ity of human 00:00: 84 units [place] (NOVOLIN 00 PM Medical 70/30 U-100 Branch INSULIN) 100 unit/mL (70-30) injection atorvastati 2019-0 Yes [id number] 80mg Take 1 Univers n 80 mg 3-20 tablet by ity of tablet 00:00: mouth at [place] 00 bedtime. Medical Branch clopidogreL 2020-0 Yes [id number] 75mg Take 1 Univers (PLAVIX) 75 3-20 tablet by ity of mg tablet 00:00: mouth [place] 00 daily. Medical Branch insulin NPH 2020-0 Yes [id number] Inject 84 Univers and regular 3-20 units AM, ity of human 7030 00:00: 84 units [place] (NOVOLIN 00 PM Medical 70/30 U-100 Branch INSULIN) 100 unit/mL (70-30) injection atorvastati 2020-0 Yes [id number] 80mg Take 1 Univers n 80 mg 3-20 tablet by ity of tablet 00:00: mouth at [place] 00 bedtime. Medical Branch clopidogreL 2020-0 Yes [id number] 75mg Take 1 Univers (PLAVIX) 75 3-20 tablet by ity of mg tablet 00:00: mouth [place] 00 daily. Medical Branch insulin NPH 2020-0 Yes [id number] Inject 84 [facility] and regular 3-20 units AM, ity of human 70-30 00:00: 84 units [place] (NOVOLIN 00 PM Medical 70/30 U-100 Branch INSULIN) 100 unit/mL (70-30) injection atorvastati 2020-0 Yes [id number] 80mg Take 1 [facility] n 80 mg 3-20 tablet by ity of tablet 00:00: mouth at [place] 00 bedtime. Medical Branch clopidogreL 2020-0 Yes [id number] 75mg Take 1 [facility] (PLAVIX) 75 3-20 tablet by ity of mg tablet 00:00: mouth 00 daily. Medical Branch insulin NPH 2019-0 Yes [id number] Inject 84 [facility] and regular 3-20 units AM, ity of human 7030 00:00: 84 units [place] (NOVOLIN 00 PM Medical 70/30 U-100 Branch INSULIN) 100 unit/mL (70-30) injection atorvastati 2020-0 Yes [id number] 80mg Take 1 [facility] n 80 mg 3-20 tablet by ity of tablet 00:00: mouth at [place] 00 bedtime. Medical Branch clopidogreL 2020-0 Yes [id number] 75mg Take 1 [facility] (PLAVIX) 75 3-20 tablet by ity of mg tablet 00:00: mouth daily. Medical Branch insulin NPH 2020-0 Yes [id number] Inject 84 [facility] and regular 3-20 units AM, ity of human 7030 00:00: 84 units [place] (NOVOLIN 00 PM Medical 70/30 U-100 Branch INSULIN) 100 unit/mL (70-30) injection atorvastati 2020-0 Yes [id number] 80mg Take 1 [facility] n 80 mg 3-20 tablet by ity of tablet 00:00: mouth at [place] 00 bedtime. [facility] Branch clopidogreL 2020-0 Yes [id number] 75mg Take 1 [facility] (PLAVIX) 75 3-20 tablet by ity of mg tablet 00:00: mouth [place] 00 daily. Medical Branch insulin NPH 2020-0 Yes [id number] Inject 84 [facility] and regular 3-20 units AM, ity of human 7030 00:00: 84 units [place] (NOVOLIN 00 PM Medical 70/30 U-100 Branch INSULIN) 100 unit/mL (70-30) injection atorvastati 2020-0 Yes [id number] 80mg Take 1 [facility] n 80 mg 3-20 tablet by ity of tablet 00:00: mouth at [place] 00 bedtime. Medical Branch clopidogreL 2020-0 Yes [id number] 75mg Take 1 [facility] (PLAVIX) 75 3-20 tablet by ity of mg tablet 00:00: mouth [place] 00 daily. Medical Branch insulin NPH 2020-0 Yes [id number] Inject 84 [facility] and regular 3-20 units AM, ity of human 7030 00:00: 84 units [place] (NOVOLIN 00 PM Medical 70/30 U-100 Branch INSULIN) 100 unit/mL (70-30) injection atorvastati 2020-0 Yes [id number] 80mg Take 1 [facility] n 80 mg 3-20 tablet by ity of tablet 00:00: mouth at [place] 00 bedtime. Medical Branch clopidogreL 2020-0 Yes [id number] 75mg Take 1 [facility] (PLAVIX) 75 3-20 tablet by ity of mg tablet 00:00: mouth [place] 00 daily. Medical Branch insulin NPH 2019-0 Yes [id number] Inject 84 [facility] and regular 3-20 units AM, ity of human 00:00: 84 units [place] (NOVOLIN 00 PM Medical 70/30 U-100 Branch INSULIN) 100 unit/mL (70-30) injection atorvastati 2020-0 Yes [id number] 80mg Take 1 [facility] n 80 mg 3-20 tablet by ity of tablet 00:00: mouth at [place] 00 bedtime. Medical Branch clopidogreL 2020-0 Yes [id number] 75mg Take 1 [facility] (PLAVIX) 75 3-20 tablet by ity of mg tablet 00:00: mouth [place] 00 daily. Medical Branch insulin NPH 2020-0 Yes [id number] Inject 84 [facility] and regular 3-20 units AM, ity of human 7030 00:00: 84 units [place] (NOVOLIN 00 PM Medical 70/30 U-100 Branch INSULIN) 100 unit/mL (70-30) injection atorvastati 2020-0 Yes [id number] 80mg Take 1 [facility] n 80 mg 3-20 tablet by ity of tablet 00:00: mouth at [place] 00 bedtime. Medical Branch clopidogreL 2020-0 Yes [id number] 75mg Take 1 [facility] (PLAVIX) 75 3-20 tablet by ity of mg tablet 00:00: mouth [place] 00 daily. Medical Branch insulin NPH 2020-0 Yes [id number] Inject 84 [facility] and regular 3-20 units AM, ity of human 70-30 00:00: 84 units [place] (NOVOLIN 00 PM Medical 70/30 U-100 Branch INSULIN) 100 unit/mL (70-30) injection atorvastati 2020-0 Yes [id number] 80mg Take 1 [facility] n 80 mg 3-20 tablet by ity of tablet 00:00: mouth at [place] 00 bedtime. Medical Branch clopidogreL 2020-0 Yes [id number] 75mg Take 1 [facility] (PLAVIX) 75 3-20 tablet by ity of mg tablet 00:00: mouth 00 daily. Medical Branch insulin NPH 2019-0 Yes [id number] Inject 84 [facility] and regular 3-20 units AM, ity of human 7030 00:00: 84 units [place] (NOVOLIN 00 PM Medical 70/30 U-100 Branch INSULIN) 100 unit/mL (70-30) injection atorvastati 2020-0 Yes [id number] 80mg Take 1 [facility] n 80 mg 3-20 tablet by ity of tablet 00:00: mouth at [place] 00 bedtime. Medical Branch clopidogreL 2020-0 Yes [id number] 75mg Take 1 [facility] (PLAVIX) 75 3-20 tablet by ity of mg tablet 00:00: mouth daily. Medical Branch insulin NPH 2020-0 Yes [id number] Inject 84 [facility] and regular 3-20 units AM, ity of human 7030 00:00: 84 units [place] (NOVOLIN 00 PM Medical 70/30 U-100 Branch INSULIN) 100 unit/mL (70-30) injection atorvastati 2020-0 Yes [id number] 80mg Take 1 [facility] n 80 mg 3-20 tablet by ity of tablet 00:00: mouth at [place] 00 bedtime. Medical Branch clopidogreL 2020-0 Yes [id number] 75mg Take 1 [facility] (PLAVIX) 75 3-20 tablet by ity of mg tablet 00:00: mouth [place] 00 daily. Medical Branch insulin NPH 2020-0 Yes [id number] Inject 84 [facility] and regular 3-20 units AM, ity of human 70-30 00:00: 84 units [place] (NOVOLIN 00 PM Medical 70/30 U-100 Branch INSULIN) 100 unit/mL (70-30) injection atorvastati 2020-0 Yes [id number] 80mg Take 1 [facility] n 80 mg 3-20 tablet by ity of tablet 00:00: mouth at [place] 00 bedtime. Medical Branch clopidogreL 2020-0 Yes [id number] 75mg Take 1 [facility] (PLAVIX) 75 3-20 tablet by ity of mg tablet 00:00: mouth [place] 00 daily. Medical Branch insulin NPH 2019-0 Yes [id number] Inject 84 [facility] and regular 3-20 units AM, ity of human 00:00: 84 units [place] (NOVOLIN 00 PM Medical 70/30 U-100 Branch INSULIN) 100 unit/mL (70-30) injection atorvastati 2019-0 Yes [id number] 80mg Take 1 [facility] n 80 mg 3-20 tablet by ity of tablet 00:00: mouth at [place] 00 bedtime. Medical Branch clopidogreL 2020-0 Yes [id number] 75mg Take 1 [facility] (PLAVIX) 75 3-20 tablet by ity of mg tablet 00:00: mouth 00 daily. Medical Branch insulin NPH 2019-0 Yes [id number] Inject 84 [facility] and regular 3-20 units AM, ity of human 00:00: 84 units [place] (NOVOLIN 00 PM Medical 70/30 U-100 Branch INSULIN) 100 unit/mL (70-30) injection atorvastati 2020-0 Yes [id number] 80mg Take 1 [facility] n 80 mg 3-20 tablet by ity of tablet 00:00: mouth at [place] 00 bedtime. Medical Branch clopidogreL 2020-0 Yes [id number] 75mg Take 1 [facility] (PLAVIX) 75 3-20 tablet by ity of mg tablet 00:00: mouth [place] 00 daily. Medical Branch insulin NPH 2020-0 Yes [id number] Inject 84 [facility] and regular 3-20 units AM, ity of human 00:00: 84 units [place] (NOVOLIN 00 PM Medical 70/30 U-100 Branch INSULIN) 100 unit/mL (70-30) injection atorvastati 2020-0 Yes [id number] 80mg Take 1 [facility] n 80 mg 3-20 tablet by ity of tablet 00:00: mouth at [place] 00 bedtime. [facility] Branch clopidogreL 2020-0 Yes [id number] 75mg Take 1 [facility] (PLAVIX) 75 3-20 tablet by ity of mg tablet 00:00: mouth [place] 00 daily. Medical Branch insulin NPH 2020-0 Yes [id number] Inject 84 [facility] and regular 3-20 units AM, ity of human 70-30 00:00: 84 units [place] (NOVOLIN 00 PM Medical 70/30 U-100 Branch INSULIN) 100 unit/mL (70-30) injection atorvastati 2020-0 Yes [id number] 80mg Take 1 [facility] n 80 mg 3-20 tablet by ity of tablet 00:00: mouth at [place] 00 bedtime. Medical Branch clopidogreL 2020-0 Yes [id number] 75mg Take 1 [facility] (PLAVIX) 75 3-20 tablet by ity of mg tablet 00:00: mouth 00 daily. Medical Branch insulin NPH 2019-0 Yes [id number] Inject 84 [facility] and regular 3-20 units AM, ity of human 7030 00:00: 84 units [place] (NOVOLIN 00 PM Medical 70/30 U-100 Branch INSULIN) 100 unit/mL (70-30) injection atorvastati 2020-0 Yes [id number] 80mg Take 1 [facility] n 80 mg 3-20 tablet by ity of tablet 00:00: mouth at [place] 00 bedtime. Medical Branch clopidogreL 2020-0 Yes [id number] 75mg Take 1 [facility] (PLAVIX) 75 3-20 tablet by ity of mg tablet 00:00: mouth daily. Medical Branch insulin NPH 2020-0 Yes [id number] Inject 84 [facility] and regular 3-20 units AM, ity of human 7030 00:00: 84 units [place] (NOVOLIN 00 PM Medical 70/30 U-100 Branch INSULIN) 100 unit/mL (70-30) injection atorvastati 2020-0 Yes [id number] 80mg Take 1 [facility] n 80 mg 3-20 tablet by ity of tablet 00:00: mouth at [place] 00 bedtime. Medical Branch clopidogreL 2020-0 Yes [id number] 75mg Take 1 [facility] (PLAVIX) 75 3-20 tablet by ity of mg tablet 00:00: mouth [place] 00 daily. Medical Branch insulin NPH 2020-0 Yes [id number] Inject 84 [facility] and regular 3-20 units AM, ity of human 70-30 00:00: 84 units [place] (NOVOLIN 00 PM Medical 70/30 U-100 Branch INSULIN) 100 unit/mL (70-30) injection atorvastati 2020-0 Yes [id number] 80mg Take 1 [facility] n 80 mg 3-20 tablet by ity of tablet 00:00: mouth at [place] 00 bedtime. Medical Branch clopidogreL 2020-0 Yes [id number] 75mg Take 1 [facility] (PLAVIX) 75 3-20 tablet by ity of mg tablet 00:00: mouth [place] 00 daily. Medical Branch insulin NPH 2019-0 Yes [id number] Inject 84 [facility] and regular 3-20 units AM, ity of human 70 00:00: 84 units [place] (NOVOLIN 00 PM Medical 70/30 U-100 Branch INSULIN) 100 unit/mL (70-30) injection atorvastati 2020-0 Yes [id number] 80mg Take 1 [facility] n 80 mg 3-20 tablet by ity of tablet 00:00: mouth at bedtime. Medical Branch clopidogreL 2020-0 Yes [id number] 75mg Take 1 [facility] (PLAVIX) 75 3-20 tablet by ity of mg tablet 00:00: mouth daily. Medical Branch insulin NPH 2019-0 Yes [id number] Inject 84 [facility] and regular 3-20 units AM, ity of human 00:00: 84 units [place] (NOVOLIN 00 PM Medical 70/30 U-100 Branch INSULIN) 100 unit/mL (70-30) injection atorvastati 2020-0 Yes [id number] 80mg Take 1 [facility] n 80 mg 3-20 tablet by ity of tablet 00:00: mouth at [place] bedtime. Medical Branch clopidogreL 2020-0 Yes [id number] 75mg Take 1 [facility] (PLAVIX) 75 3-20 tablet by ity of mg tablet 00:00: mouth 00 daily. Medical Branch insulin NPH 2020-0 Yes [id number] Inject 84 [facility] and regular 3-20 units AM, ity of human 70 00:00: 84 units [place] (NOVOLIN 00 PM Medical 70/30 U-100 Branch INSULIN) 100 unit/mL (70-30) injection atorvastati 2020-0 Yes [id number] 80mg Take 1 [facility] n 80 mg 3-20 tablet by ity of tablet 00:00: mouth at [place] 00 bedtime. Medical Branch clopidogreL 2020-0 Yes [id number] 75mg Take 1 [facility] (PLAVIX) 75 3-20 tablet by ity of mg tablet 00:00: mouth [place] 00 daily. Medical Branch insulin NPH 2020-0 Yes [id number] Inject 84 [facility] and regular 3-20 units AM, ity of human 7030 00:00: 84 units [place] (NOVOLIN 00 PM Medical 70/30 U-100 Branch INSULIN) 100 unit/mL (70-30) injection atorvastati 2020-0 Yes [id number] 80mg Take 1 [facility] n 80 mg 3-20 tablet by ity of tablet 00:00: mouth at [place] 00 bedtime. Medical Branch clopidogreL 2020-0 Yes [id number] 75mg Take 1 [facility] (PLAVIX) 75 3-20 tablet by ity of mg tablet 00:00: mouth 00 daily. Medical Branch insulin NPH 2019-0 Yes [id number] Inject 84 [facility] and regular 3-20 units AM, ity of human 00:00: 84 units [place] (NOVOLIN 00 PM Medical 70/30 U-100 Branch INSULIN) 100 unit/mL (70-30) injection atorvastati 2020-0 Yes [id number] 80mg Take 1 [facility] n 80 mg 3-20 tablet by ity of tablet 00:00: mouth at [place] bedtime. Medical Branch clopidogreL 2020-0 Yes [id number] 75mg Take 1 [facility] (PLAVIX) 75 3-20 tablet by ity of mg tablet 00:00: mouth daily. Medical Branch insulin NPH 2020-0 Yes [id number] Inject 84 [facility] and regular 3-20 units AM, ity of human 7030 00:00: 84 units [place] (NOVOLIN 00 PM Medical 70/30 U-100 Branch INSULIN) 100 unit/mL (70-30) injection atorvastati 2020-0 Yes [id number] 80mg Take 1 [facility] n 80 mg 3-20 tablet by ity of tablet 00:00: mouth at [place] 00 bedtime. Medical Branch clopidogreL 2020-0 Yes [id number] 75mg Take 1 [facility] (PLAVIX) 75 3-20 tablet by ity of mg tablet 00:00: mouth 00 daily. Medical Branch insulin NPH 2020-0 Yes [id number] Inject 84 [facility] and regular 3-20 units AM, ity of human 70-30 00:00: 84 units [place] (NOVOLIN 00 PM Medical 70/30 U-100 Branch INSULIN) 100 unit/mL (70-30) injection atorvastati 2020-0 Yes [id number] 80mg Take 1 [facility] n 80 mg 3-20 tablet by ity of tablet 00:00: mouth at [place] 00 bedtime. Medical Branch clopidogreL 2020-0 Yes [id number] 75mg Take 1 [facility] (PLAVIX) 75 3-20 tablet by ity of mg tablet 00:00: mouth 00 daily. Medical Branch insulin NPH 2019-0 Yes [id number] Inject 84 [facility] and regular 3-20 units AM, ity of human 00:00: 84 units [place] (NOVOLIN 00 PM Medical 70/30 U-100 Branch INSULIN) 100 unit/mL (70-30) injection atorvastati 2020-0 Yes [id number] 80mg Take 1 [facility] n 80 mg 3-20 tablet by ity of tablet 00:00: mouth at [place] bedtime. Medical Branch clopidogreL 2020-0 Yes [id number] 75mg Take 1 [facility] (PLAVIX) 75 3-20 tablet by ity of mg tablet 00:00: mouth daily. Medical Branch insulin NPH 2019-0 Yes [id number] Inject 84 [facility] and regular 3-20 units AM, ity of human 00:00: 84 units [place] (NOVOLIN 00 PM Medical 70/30 U-100 Branch INSULIN) 100 unit/mL (70-30) injection atorvastati 2020-0 Yes [id number] 80mg Take 1 [facility] n 80 mg 3-20 tablet by ity of tablet 00:00: mouth at [place] bedtime. Medical Branch clopidogreL 2020-0 Yes [id number] 75mg Take 1 [facility] (PLAVIX) 75 3-20 tablet by ity of mg tablet 00:00: mouth 00 daily. Medical Branch insulin NPH 2020-0 Yes [id number] Inject 84 [facility] and regular 3-20 units AM, ity of human 00:00: 84 units [place] (NOVOLIN 00 PM Medical 70/30 U-100 Branch INSULIN) 100 unit/mL (70-30) injection atorvastati 2020-0 Yes [id number] 80mg Take 1 [facility] n 80 mg 3-20 tablet by ity of tablet 00:00: mouth at [place] 00 bedtime. Medical Branch clopidogreL 2020-0 Yes [id number] 75mg Take 1 [facility] (PLAVIX) 75 3-20 tablet by ity of mg tablet 00:00: mouth [place] 00 daily. Medical Branch insulin NPH 2020-0 Yes [id number] Inject 84 [facility] and regular 3-20 units AM, ity of human 7030 00:00: 84 units [place] (NOVOLIN 00 PM Medical 70/30 U-100 Branch INSULIN) 100 unit/mL (70-30) injection atorvastati 2020-0 Yes [id number] 80mg Take 1 [facility] n 80 mg 3-20 tablet by ity of tablet 00:00: mouth at [place] 00 bedtime. Medical Branch clopidogreL 2020-0 Yes [id number] 75mg Take 1 [facility] (PLAVIX) 75 3-20 tablet by ity of mg tablet 00:00: mouth daily. Medical Branch insulin NPH 2019-0 Yes [id number] Inject 84 [facility] and regular 3-20 units AM, ity of human 7030 00:00: 84 units [place] (NOVOLIN 00 PM Medical 70/30 U-100 Branch INSULIN) 100 unit/mL (70-30) injection atorvastati 2020-0 Yes [id number] 80mg Take 1 [facility] n 80 mg 3-20 tablet by ity of tablet 00:00: mouth at [place] bedtime. Medical Branch clopidogreL 2020-0 Yes [id number] 75mg Take 1 [facility] (PLAVIX) 75 3-20 tablet by ity of mg tablet 00:00: mouth daily. Medical Branch insulin NPH 2020-0 Yes [id number] Inject 84 [facility] and regular 3-20 units AM, ity of human 7030 00:00: 84 units [place] (NOVOLIN 00 PM Medical 70/30 U-100 Branch INSULIN) 100 unit/mL (70-30) injection atorvastati 2020-0 Yes [id number] 80mg Take 1 [facility] n 80 mg 3-20 tablet by ity of tablet 00:00: mouth at [place] 00 bedtime. [facility] Branch clopidogreL 2020-0 Yes [id number] 75mg Take 1 Univers (PLAVIX) 75 3-20 tablet by ity of mg tablet 00:00: mouth 00 daily. Medical Branch insulin NPH 2020-0 Yes [id number] Inject 84 [facility] and regular 3-20 units AM, ity of human 70-30 00:00: 84 units [place] (NOVOLIN 00 PM Medical 70/30 U-100 Branch INSULIN) 100 unit/mL (70-30) injection atorvastati 2020-0 Yes [id number] 80mg Take 1 [facility] n 80 mg 3-20 tablet by ity of tablet 00:00: mouth at [place] 00 bedtime. Medical Branch clopidogreL 2020-0 Yes [id number] 75mg Take 1 [facility] (PLAVIX) 75 3-20 tablet by ity of mg tablet 00:00: mouth [place] 00 daily. Medical Branch insulin NPH 2019-0 Yes [id number] Inject 84 [facility] and regular 3-20 units AM, ity of human 70-30 00:00: 84 units [place] (NOVOLIN 00 PM Medical 70/30 U-100 Branch INSULIN) 100 unit/mL (70-30) injection atorvastati 2019-0 Yes [id number] 80mg Take 1 [facility] n 80 mg 3-20 tablet by ity of tablet 00:00: mouth at [place] 00 bedtime. Medical Branch clopidogreL 2020-0 Yes [id number] 75mg Take 1 [facility] (PLAVIX) 75 3-20 tablet by ity of mg tablet 00:00: mouth [place] 00 daily. Medical Branch atorvastati 2020-0 Yes [id number] 80mg Take 1 [facility] n 80 mg 3-20 tablet by ity of tablet 00:00: mouth at [place] 00 bedtime. Medical Branch clopidogreL 2020-0 Yes [id number] 75mg Take 1 [facility] (PLAVIX) 75 3-20 tablet by ity of mg tablet 00:00: mouth 00 daily. Medical Branch atorvastati 2020-0 Yes [id number] 80mg Take 1 [facility] n 80 mg 3-20 tablet by ity of tablet 00:00: mouth at [place] 00 bedtime. Medical Branch clopidogreL 2020-0 Yes [id number] 75mg Take 1 [facility] (PLAVIX) 75 3-20 tablet by ity of mg tablet 00:00: mouth [place] 00 daily. Medical Branch atorvastati 2020-0 Yes [id number] 80mg Take 1 [facility] n 80 mg 3-20 tablet by ity of tablet 00:00: mouth at [place] 00 bedtime. Medical Branch clopidogreL 2020-0 Yes [id number] 75mg Take 1 [facility] (PLAVIX) 75 3-20 tablet by ity of mg tablet 00:00: mouth [place] 00 daily. Medical Branch atorvastati 2020-0 Yes [id number] 80mg Take 1 [facility] n 80 mg 3-20 tablet by ity of tablet 00:00: mouth at [place] 00 bedtime. Medical Branch clopidogreL 2020-0 Yes [id number] 75mg Take 1 [facility] (PLAVIX) 75 3-20 tablet by ity of mg tablet 00:00: mouth [place] 00 daily. Medical Branch atorvastati 2020-0 Yes [id number] 80mg Take 1 [facility] n 80 mg 3-20 tablet by ity of tablet 00:00: mouth at [place] 00 bedtime. Medical Branch clopidogreL 2020-0 Yes [id number] 75mg Take 1 [facility] (PLAVIX) 75 3-20 tablet by ity of mg tablet 00:00: mouth [place] 00 daily. Medical Branch clopidogreL 2020-0 Yes [id number] 75mg Take 1 [facility] (PLAVIX) 75 3-20 tablet by ity of mg tablet 00:00: mouth [place] 00 daily. Medical Branch clopidogreL 2020-0 Yes [id number] 75mg Take 1 [facility] (PLAVIX) 75 3-20 tablet by ity of mg tablet 00:00: mouth [place] 00 daily. Medical Branch clopidogreL 2020-0 Yes [id number] 75mg Take 1 [facility] (PLAVIX) 75 3-20 tablet by ity of mg tablet 00:00: mouth [place] 00 daily. Medical Branch clopidogreL 2020-0 Yes [id number] 75mg Take 1 [facility] (PLAVIX) 75 3-20 tablet by ity of mg tablet 00:00: mouth [place] 00 daily. Medical Branch clopidogreL 2020-0 Yes [id number] 75mg Take 1 [facility] (PLAVIX) 75 3-20 tablet by ity of mg tablet 00:00: mouth [place] 00 daily. Medical Branch clopidogreL 2020-0 Yes [id number] 75mg Take 1 [facility] (PLAVIX) 75 3-20 tablet by ity of mg tablet 00:00: mouth [place] 00 daily. Medical Branch clopidogreL 2020-0 Yes [id number] 75mg Take 1 [facility] (PLAVIX) 75 3-20 tablet by ity of mg tablet 00:00: mouth [place] 00 daily. [facility] Branch clopidogreL 2020-0 Yes [id number] 75mg Take 1 Univers (PLAVIX) 75 3-20 tablet by ity of mg tablet 00:00: mouth [place] 00 daily. [facility] Branch clopidogreL 2020-0 Yes [id number] 75mg Take 1 Univers (PLAVIX) 75 3-20 tablet by ity of mg tablet 00:00: mouth [place] 00 daily. Medical Branch clopidogreL 2020-0 Yes [id number] 75mg Take 1 [facility] (PLAVIX) 75 3-20 tablet by ity of mg tablet 00:00: mouth [place] 00 daily. Medical Branch clopidogreL 2020-0 Yes [id number] 75mg Take 1 [facility] (PLAVIX) 75 3-20 tablet by ity of mg tablet 00:00: mouth [place] 00 daily. Medical Branch clopidogreL 2020-0 Yes [id number] 75mg Take 1 [facility] (PLAVIX) 75 3-20 tablet by ity of mg tablet 00:00: mouth [place] 00 daily. Medical Branch insulin NPH 2019-0 Yes [id number] Inject 84 [facility] and regular 3-20 units AM, ity of human 70-30 00:00: 84 units [place] (NOVOLIN 00 PM Medical 70/30 U-100 Branch INSULIN) 100 unit/mL (70-30) injection atorvastati 2019-0 Yes [id number] 80mg Take 1 Univers n 80 mg 3-20 07 tablet by ity of tablet 00:00: mouth at [place] 00 bedtime. Medical Branch clopidogreL 2019-0 Yes [id number] 75mg Take 1 [facility] (PLAVIX) 75 3-20 tablet by ity of mg tablet 00:00: mouth [place] 00 daily. Medical Branch insulin NPH 2019-0 Yes [id number] Inject 84 [facility] and regular 3-20 units AM, ity of human 70-30 00:00: 84 units [place] (NOVOLIN 00 PM Medical 70/30 U-100 Branch INSULIN) 100 unit/mL (70-30) injection atorvastati 2019-0 Yes [id number] 80mg Take 1 Univers n 80 mg [...] Medical placement Branch clopidogreL 2020-0 2020- No [id number] 75mg Take 1 Univers (PLAVIX) 75 3-20 07-06 tablet by it y of mg tablet 00:00: 00:00 mouth [place] 00 :00 daily. Medical Branch atorvastati 2020- No [id number] 80mg Take 1 Univers n 80 mg 3-20 -06 tablet by ity of tablet 00:00: 00:00 mouth at [place] 00 :00 bedtime. Medical Branch atorvastati 2020- No [id number] 80mg Take 1 [facility] n 80 mg 3-20 -06 tablet by ity of tablet 00:00: 00:00 mouth at [place] 00 :00 bedtime. Medical Branch atorvastati 2020- No Coronary 80mg Take 1 Univers n 80 mg 3-20 -06 artery tablet by ity of tablet 00:00: 00:00 disease mouth at [place] 00 :00 involving bedtime. [facility] l [place] [facility] coronary artery of [place] [facility] without angina pectoris atorvastati 2020- No Coronary 80mg Take 1 Univers n 80 mg 3-20 -06 artery tablet by ity of tablet 00:00: 00:00 disease mouth at [place] 00 :00 involving bedtime. [facility] l [place] [facility] coronary artery of [place] heart without angina pectoris insulin NPH 2020- No [id number] Inject 84 Univers and regular 3- 04-12 [...] of mg 18:45: 17:57 ONCE, 1 [place] 00 :00 dose, [facility] 08/15/19 at [...] o f injection 14:05: 14:05 FOR [place] 50 :50 PROCEDURE Medical USE, 1 Branch [...] Medi blanquita (8 %) IV 08/15/19 at [facility] h Piggyback 4 0745, g Routine ipratropium 2019-0 Yes 3mL 3 mL, Unive rs -albuterol 08-14 Inhalation ity of (DUONEB) 10:24: , QID, [place] 0.5 mg-3 00 First dose Medic al [...] f human 03:33: 03:38 us, ONCE, [place] (HUMULIN R) 00 :00 1 dose, Medic al injection Wed Branch 10 Units 08/14/19 at 2245, Routine insulin 2020-0 2020- No 8U 8 Units, Unive rs regular 08-13 Slow IV ity of human 22:00: 21:23 Push, [place] (HUMULIN R) 00 :00 ONCE, 1 Medic al injection 8 dose, Wed Bra nch Units 08/14/19 at 1700, Routine sulfur 2019-0 2020- No 5mL 5 mL, Univers hexafluorid 08-13 Intravenou i ty of e microsphr 17:15: 14:00 s, ONCE, 1 [place] (LUMASON) 00 :00 dose, Wed Medic al [...] ity of (LANTUS 14:00: 06:45 from [place] U-100) 00 :18 20.175 Medical injection Units [...] Routine ipratropium 2019- No 3mL 3 mL, [facility] ers -albuterol 08-13 Inhalation it y of (DUONEB) 13:00: 10:24 , QID, [place] 0.5 mg-3 00 :42 First dose Medic [...] of RAPID 12:30: 06:45 from 6.725 [place] (NOVOLOG) 00 :18 Units = Medical injection 7 0.25 Branch Units Units/kg/d ay ?80.7 kg), [facility] TIDAC, First dose on Mon08/14/19 at 0730, Until Discontinu ed, Routine magnesium 2019-0 2020- No 4g 4 g, IV Univ ers sulfate in 08-13 Piggyback, it y of water 4 12:15: 14:00 ONCE, 1 [place] gram/50 mL 00 :00 dose, Mon Medi blanquita (8 %) IV 08/14/19 at [facility] h Piggyback 4 0715, g Routine dextrose 2019-0 Yes 250mL 250 mL, IV Un cali 10% (D10W) 08-13 Infusion, ity of bolus 12:06: PRN - SEE [place] infusion 49 INSTRUCTIO Medic al 250 mL [...] KIT) 55 Starting Medical injection 1 Mon [place] mg 08/14/19 at 0705, Until Discontinu ed, TRANG, Blood Glucose < or = 70 mg/dL and patient is unable to swallow or has mental changes. morpHINE 2020- No 2mg 2 mg, Slow Un cali injection 2 08-13 IV Push, ity of mg 11:45: 10:43 ONCE, 1 [place] 00 :00 dose, Mon Medical 08/14/19 at [place] 0645, Routine atorvastati 2019-0 2020- No 40mg 40 mg, Uni vers n (LIPITOR) 08-13 Oral, QHS, i ty of tablet 40 02:00: 14:33 First dose [place] mg 00 :04 on [facility] Medical 08/13/19 at [place] 2100, Until Discontinu ed, Routine Sliding 2019-0 2020- No Subcutaneo Uni vers Scale 08-12 us, TID ity of Insulin - 22:00: 12:09 MEALS+HS, [place] [facility] 00 :18 First dose Medical (NOVOLOG) + on [facility] Fsbg 08/13/19 at Testing 1700, Until Discontinu ed, Routine dextrometho 2019-0 Yes 5mL 5 mL, [facility] rs rphan-guaif 08-12 Oral, ity of enesin 21:03: Q6HPRN, [place] (ROBITUSSIN 48 Starting Medi blanquita DM) 10-100 [facility] mg/5 mL 08/13/19 at solution 5 1603, mL Until Discontinu ed, Routine, Cough morpHINE 2019- No 4mg 4 mg, Slow Un cali injection 4 08-12 IV Push, ity of mg 21:00: 20:06 ONCE, 1 [place] 00 :00 dose, [facility] 08/13/19 at Branch 1600, Routine clopidogreL 2019- No 300mg 300 mg, U nivers (PLAVIX) 08-12 Oral, ity of tablet 300 20:30: 21:32 ONCE, 1 [place] mg 00 :00 dose, [facility] 08/13/19 at Branch 1530, Routine NaCl 0.9% 2019- No 500mL at 50 [facility] [place] rs (NS) IV 08-12 mL/hr, IV ity of infusion 20:30: 19:41 Infusion, [place] as 500 mL 00 :00 ONCE, 1 Medical dose, [facility] 08/13/19 at 1530, Routine
50 cc/hr for 500 mL total
HYDROcodone 2019- No 1{tbl} 1 tablet, Univers -acetaminop 08-12 Oral, ity of hen (NORCO 20:15: 02:39 ONCE, 1 [place] as 5) 5-325 mg 00 :00 dose, [facility] Med ical tablet 1 08/13/19 at [facility] h tablet 1515, Routine FENTanyl PF 2020- No Slow IV Un cali (SUBLIMAZE 08-12 Push, ity of (PF)) 16:26: 16:26 TITRATE - [place] injection 15 :15 FOR Medical PROCEDURE Branch USE, 1 dose, Starting [facility] 08/13/19 at 1126, Until Mon08/13/19 at 1126, Routine midazolam 2019-0 2020- No IV Push, Uni vers (VERSED) 08-12 TITRATE - ity o f injection 16:26: 16:26 FOR [place] 05 :05 PROCEDURE Medical USE, 1 Branch dose, Starting [facility] 08/13/19 at 1126, Until [facility] 08/13/19 at 1126, Routine clopidogreL 2019-0 2020- No 300mg 300 mg, U nivers (PLAVIX) 08-12 Oral, ity of tablet 300 15:30: 15:48 ONCE, 1 [place] mg 00 :00 dose, [facility] Medical 08/13/19 at Branch 1030, Routine pantoprazol 2019-0 Yes 40mg 40 mg, Univ ers e 08-12 Oral, ity of (PROTONIX) 14:00: DAILY, [place] EC tablet 00 First dose Medi blanquita 40 mg on [facility] 08/13/19 at 0900, Until Discontinu ed, Routine isosorbide 2019-0 Yes 30mg 30 mg, Unive rs mononitrate 08-12 Oral, ity of (IMDUR) 24 14:00: DAILY, [place] hr tablet 00 First dose Medi blanquita 30 mg on [facility] 08/13/19 at 0900, Until Discontinu ed, Routine furosemide 2019-0 Yes 20mg 20 mg, Unive rs (LASIX) 08-12 Oral, ity of tablet 20 14:00: DAILY, [place] mg 00 First dose Medical on [facility] 08/13/19 at 0900, Until Discontinu ed, Routine insulin NPH 2019- 2020- No .3U/kg/ 12 Units Univers (HUMULIN N) 08-12 d (rounded ity of injection 14:00: 12:08 from [place] 12 Units 00 :24 12.195 Medical Units = Branch 0.3 Units/kg/d ay ?81.3 kg), Subcutaneo us, QAM+HS, First dose on [facility] 08/13/19 at 0900, Until Discontinu ed, Routine metoprolol 2019-0 2020- No 25mg 25 mg, Univ ers tartrate 08-12 Oral, ity of (LOPRESSOR) 14:00: 12:10 DAILY, [place] tablet 25 00 :23 First dose Medi blanquita mg on [facility] 08/13/19 at 0900, Until Discontinu ed, Routine aspirin EC 2019- 2020- No 81mg 81 mg, Univ ers tablet 81 08-12 Oral, ity of mg 14:00: 13:38 DAILY, [place] 00 :12 First dose Medical on [facility] 08/13/19 at 0900, Until Discontinu ed, Routine gabapentin 2020-0 Yes 800mg 800 mg, Uni vers (NEURONTIN) 08-12 Oral, TID, it y of tablet 800 13:00: First dose [place] mg 00 on [facility] Medical 08/13/19 at Branch 0800, Until Discontinu ed, Routine insulin 2019- 2020- No .3U/kg/ 8 Units Uni vers aspart 08-1218 d (rounded ity of RAPID 13:00: 12:08 from 8.13 [place] (NOVOLOG) 00 :24 Units = Medical injection 8 0.3 Branch Units Units/kg/d ay ?81.3 kg), Subcutaneo us, TID MEALS, First dose on [facility] 08/13/19 at 0800, Until Discontinu ed, Routine heparin 2019-0 2020- No 12U/kg/ 12 Univer s 25,000 08-12 h Units/kg/h ity of units/250mL 10:45: 18:00 r ?81.3 kg [place] in NS 00 :11 (9.756 Medical weight [...] ONCE, 1 Medical Soln 4,000 dose, Mon [facility] ch Units 08/13/19 at 0500, Routine heparin 2020-0 Yes 3000U FOR Univers (1,000 08-12 REBOLUSING ity of unit/mL, 10 09:43: , Starting [place] mL vial) 08 [facility] for 08/13/19 at Branch Rebolusing [...] ity of enesin 07:25: 21:03 Q6HPRN, [place] (ROBITUSSIN 59 :57 Starting Medi blanquita DM) 10-100 [facility] mg/5 mL 08/13/19 at solution 5 0225, mL Until 08/13/19 at 1603, Routine, Cough morpHINE 2020-0 2020- No 2mg 2 mg, Slow [place] injection 2 08-12 IV Push, ity of mg 06:08: 13:24 Q6HPRN, 2 [place] 33 :00 doses, Medical Starting Branch [facility] 08/13/19 at 0108, Until 08/13/19 at 0824, Routine, Chest pain aspirin 2020-0 Yes 81mg Take 81 mg Univ ers (ASPIRIN 3-17 by mouth ity of LOW DOSE) 04:49: daily. [place] 81 mg EC 06 Medical tablet [place] aspirin 2020-0 Yes 81mg Take 81 mg Univ ers (ASPIRIN 3-17 by mouth ity of LOW DOSE) 04:49: daily. [place] 81 mg EC 06 Medical tablet [place] nitroglycer 2020-0 Yes .4mg 0.4 mg, Uni vers in 08-12 Sublingual ity of (NITROSTAT) 04:31: , Q5MIN [place] sublingual 28 PRN, Medical tablet 0.4 Starting Branc h mg 08/12/19 at 2331, Until Discontinu ed, Routine, Chest pain aspirin 2020-0 Yes 81mg Take 81 mg Univ ers (ASPIRIN 3-09 by mouth ity of LOW DOSE) 16:06: daily. [place] 81 mg EC 37 Medical tablet Branch aspirin 2020-0 Yes 81mg Take 81 mg Univ ers (ASPIRIN 3-09 by mouth ity of LOW DOSE) 16:06: daily. [place] 81 mg EC 37 Medical tablet Branch aspirin 2020-0 Yes 81mg Take 81 mg Univ ers (ASPIRIN 3-09 by mouth ity of LOW DOSE) 16:06: daily. [place] 81 mg EC 37 Medical tablet Branch aspirin 2020-0 Yes 81mg Take 81 mg Univ ers (ASPIRIN 3-09 by mouth ity of LOW DOSE) 16:06: daily. [place] 81 mg EC 37 Medical tablet Branch aspirin 2020-0 Yes 81mg Take 81 mg Univ ers (ASPIRIN 3-09 by mouth ity of LOW DOSE) 16:06: daily. [place] 81 mg EC 37 Medical tablet Branch isosorbide 2020-0 Yes [id number] 30mg Take 1 Univers mononitrate 3-09 tablet by ity of 30 mg 24 hr 00:00: mouth [place] tablet 00 daily. Medical Branch isosorbide 2020-0 Yes [id number] 30mg Take 1 Univers mononitrate 3-09 tablet by ity of 30 mg 24 hr 00:00: mouth [place] tablet 00 daily. Medical Branch isosorbide 2020-0 Yes [id number] 30mg Take 1 Univers mononitrate 3-09 tablet by ity of 30 mg 24 hr 00:00: mouth [place] tablet 00 daily. Medical Branch isosorbide 2020-0 Yes [id number] 30mg Take 1 Univers mononitrate 3-09 tablet by ity of 30 mg 24 hr 00:00: mouth [place] tablet 00 daily. Medical Branch isosorbide 2020-0 Yes [id number] 30mg Take 1 Univers mononitrate 3-09 tablet by ity of 30 mg 24 hr 00:00: mouth [place] tablet 00 daily. Medical Branch isosorbide 2020-0 Yes [id number] 30mg Take 1 Univers mononitrate 3-09 tablet by ity of 30 mg 24 hr 00:00: mouth [place] tablet 00 daily. Medical Branch isosorbide 2020-0 Yes [id number] 30mg Take 1 Univers mononitrate 3-09 tablet by ity of 30 mg 24 hr 00:00: mouth [place] tablet 00 daily. Medical Branch isosorbide 2020-0 Yes [id number] 30mg Take 1 Univers mononitrate 3-09 tablet by ity of 30 mg 24 hr 00:00: mouth [place] tablet 00 daily. Medical Branch isosorbide 2020-0 Yes [id number] 30mg Take 1 Univers mononitrate 3-09 tablet by ity of 30 mg 24 hr 00:00: mouth [place] tablet 00 daily. Medical Branch isosorbide 2020-0 Yes [id number] 30mg Take 1 Univers mononitrate 3-09 tablet by ity of 30 mg 24 hr 00:00: mouth [place] tablet 00 daily. Medical Branch isosorbide 2020-0 Yes [id number] 30mg Take 1 Univers mononitrate 3-09 tablet by ity of 30 mg 24 hr 00:00: mouth [place] tablet 00 daily. Medical Branch isosorbide 2020-0 Yes [id number] 30mg Take 1 Univers mononitrate 3-09 tablet by ity of 30 mg 24 hr 00:00: mouth [place] tablet 00 daily. Medical Branch isosorbide 2020-0 Yes [id number] 30mg Take 1 Univers mononitrate 3-09 tablet by ity of 30 mg 24 hr 00:00: mouth [place] tablet 00 daily. Medical Branch isosorbide 2020-0 Yes [id number] 30mg Take 1 Univers mononitrate 3-09 tablet by ity of 30 mg 24 hr 00:00: mouth [place] tablet 00 daily. Medical Branch isosorbide 2020-0 Yes [id number] 30mg Take 1 Univers mononitrate 3-09 tablet by ity of 30 mg 24 hr 00:00: mouth [place] tablet 00 daily. Medical Branch isosorbide 2020-0 Yes [id number] 30mg Take 1 Univers mononitrate 3-09 tablet by ity of 30 mg 24 hr 00:00: mouth [place] tablet 00 daily. Medical Branch isosorbide 2020-0 Yes [id number] 30mg Take 1 Univers mononitrate 3-09 tablet by ity of 30 mg 24 hr 00:00: mouth [place] tablet 00 daily. Medical Branch isosorbide 2020-0 Yes [id number] 30mg Take 1 Univers mononitrate 3-09 tablet by ity of 30 mg 24 hr 00:00: mouth [place] tablet 00 daily. Medical Branch isosorbide 2020-0 Yes [id number] 30mg Take 1 Univers mononitrate 3-09 tablet by ity of 30 mg 24 hr 00:00: mouth [place] tablet 00 daily. Medical Branch isosorbide 2020-0 Yes [id number] 30mg Take 1 Univers mononitrate 3-09 tablet by ity of 30 mg 24 hr 00:00: mouth [place] tablet 00 daily. Medical Branch isosorbide 2020-0 Yes [id number] 30mg Take 1 Univers mononitrate 3-09 tablet by ity of 30 mg 24 hr 00:00: mouth [place] tablet 00 daily. Medical Branch isosorbide 2020-0 Yes [id number] 30mg Take 1 Univers mononitrate 3-09 tablet by ity of 30 mg 24 hr 00:00: mouth [place] tablet 00 daily. Medical Branch isosorbide 2020-0 Yes [id number] 30mg Take 1 Univers mononitrate 3-09 tablet by ity of 30 mg 24 hr 00:00: mouth [place] tablet 00 daily. Medical Branch isosorbide 2020-0 Yes [id number] 30mg Take 1 Univers mononitrate 3-09 tablet by ity of 30 mg 24 hr 00:00: mouth [place] tablet 00 daily. Medical Branch isosorbide 2020-0 Yes [id number] 30mg Take 1 Univers mononitrate 3-09 tablet by ity of 30 mg 24 hr 00:00: mouth [place] tablet 00 daily. Medical Branch isosorbide 2020-0 Yes [id number] 30mg Take 1 Univers mononitrate 3-09 tablet by ity of 30 mg 24 hr 00:00: mouth [place] tablet 00 daily. Medical Branch isosorbide 2020-0 Yes [id number] 30mg Take 1 Univers mononitrate 3-09 tablet by ity of 30 mg 24 hr 00:00: mouth [place] tablet 00 daily. Medical Branch isosorbide 2020-0 Yes [id number] 30mg Take 1 Univers mononitrate 3-09 tablet by ity of 30 mg 24 hr 00:00: mouth [place] tablet 00 daily. Medical Branch isosorbide 2020-0 Yes [id number] 30mg Take 1 Univers mononitrate 3-09 tablet by ity of 30 mg 24 hr 00:00: mouth [place] tablet 00 daily. Medical Branch isosorbide 2020-0 Yes [id number] 30mg Take 1 Univers mononitrate 3-09 tablet by ity of 30 mg 24 hr 00:00: mouth [place] tablet 00 daily. Medical Branch isosorbide 2020-0 Yes [id number] 30mg Take 1 Univers mononitrate 3-09 tablet by ity of 30 mg 24 hr 00:00: mouth [place] tablet 00 daily. Medical Branch isosorbide 2020-0 Yes [id number] 30mg Take 1 Univers mononitrate 3-09 tablet by ity of 30 mg 24 hr 00:00: mouth [place] tablet 00 daily. Medical Branch isosorbide 2020-0 Yes [id number] 30mg Take 1 Univers mononitrate 3-09 tablet by ity of 30 mg 24 hr 00:00: mouth [place] tablet 00 daily. Medical Branch isosorbide 2020-0 Yes [id number] 30mg Take 1 Univers mononitrate 3-09 tablet by ity of 30 mg 24 hr 00:00: mouth [place] tablet 00 daily. Medical Branch isosorbide 2020-0 Yes [id number] 30mg Take 1 Univers mononitrate 3-09 tablet by ity of 30 mg 24 hr 00:00: mouth [place] tablet 00 daily. Medical Branch isosorbide 2020-0 Yes [id number] 30mg Take 1 Univers mononitrate 3-09 tablet by ity of 30 mg 24 hr 00:00: mouth [place] tablet 00 daily. Medical Branch isosorbide 2020-0 Yes [id number] 30mg Take 1 Univers mononitrate 3-09 tablet by ity of 30 mg 24 hr 00:00: mouth [place] tablet 00 daily. Medical Branch isosorbide 2020-0 Yes [id number] 30mg Take 1 Univers mononitrate 3-09 tablet by ity of 30 mg 24 hr 00:00: mouth [place] tablet 00 daily. Medical Branch isosorbide 2020-0 Yes [id number] 30mg Take 1 Univers mononitrate 3-09 tablet by ity of 30 mg 24 hr 00:00: mouth [place] tablet 00 daily. Medical Branch isosorbide 2020-0 Yes [id number] 30mg Take 1 Univers mononitrate 3-09 tablet by ity of 30 mg 24 hr 00:00: mouth [place] tablet 00 daily. Medical Branch isosorbide 2020-0 Yes [id number] 30mg Take 1 Univers mononitrate 3-09 tablet by ity of 30 mg 24 hr 00:00: mouth [place] tablet 00 daily. [facility] Branch isosorbide 2020-0 Yes [id number] 30mg Take 1 Univers mononitrate 3-09 tablet by ity of 30 mg 24 hr 00:00: mouth [place] tablet 00 daily. Medical Branch isosorbide 2020-0 Yes [id number] 30mg Take 1 Univers mononitrate 3-09 tablet by ity of 30 mg 24 hr 00:00: mouth [place] tablet 00 daily. Medical Branch isosorbide 2020-0 Yes [id number] 30mg Take 1 Univers mononitrate 3-09 tablet by ity of 30 mg 24 hr 00:00: mouth [place] tablet 00 daily. Medical Branch isosorbide 2020-0 Yes [id number] 30mg Take 1 Univers mononitrate 3-09 tablet by ity of 30 mg 24 hr 00:00: mouth [place] tablet 00 daily. Medical Branch isosorbide 2020-0 Yes [id number] 30mg Take 1 Univers mononitrate 3-09 tablet by ity of 30 mg 24 hr 00:00: mouth [place] tablet 00 daily. [facility] Branch isosorbide 2020-0 Yes [id number] 30mg Take 1 Univers mononitrate 3-09 tablet by ity of 30 mg 24 hr 00:00: mouth [place] tablet 00 daily. [facility] Branch isosorbide 2020-0 Yes [id number] 30mg Take 1 Univers mononitrate 3-09 tablet by ity of 30 mg 24 hr 00:00: mouth [place] tablet 00 daily. Medical Branch isosorbide 2020-0 Yes [id number] 30mg Take 1 Univers mononitrate 3-09 tablet by ity of 30 mg 24 hr 00:00: mouth [place] tablet 00 daily. [facility] Branch isosorbide 2020-0 Yes [id number] 30mg Take 1 Univers mononitrate 3-09 tablet by ity of 30 mg 24 hr 00:00: mouth [place] tablet 00 daily. [facility] Branch isosorbide 2020-0 2021- No [id number] 30mg Take 1 Univers mononitrate 3-09 -08 tablet by it y of 30 mg 24 hr 00:00: 00:00 [place] tablet 00 :00 daily. Medical Branch insulin NPH 2018-05 Yes [id number] Inject 80 Univers and regular 2-13 units AM, ity of human 70-30 00:00: 90 units [place] (NOVOLIN 00 PM Medical 70/30 U-100 Branch INSULIN) 100 unit/mL (70-30) injection insulin NPH 2018-05 Yes [id number] Inject 80 Univers and regular 2-13 units AM, ity of human 70-30 00:00: 90 units [place] (NOVOLIN 00 PM Medical 70/30 U-100 Branch INSULIN) 100 unit/mL (70-30) injection insulin NPH 2018-05 Yes [id number] Inject 80 Univers and regular 2-13 units AM, ity of human 7030 00:00: 90 units [place] (NOVOLIN 00 PM Medical 70/30 U-100 Branch INSULIN) 100 unit/mL (70-30) injection insulin NPH 2018-05 Yes [id number] Inject 80 Univers and regular 2-13 units AM, ity of human 00:00: 90 units [place] (NOVOLIN 00 PM Medical 70/30 U-100 Branch INSULIN) 100 unit/mL (70-30) injection insulin NPH 2018-05 Yes [id number] Inject 80 Univers and regular 2-13 units AM, ity of human 30 00:00: 90 units [place] (NOVOLIN 00 PM Medical 70/30 U-100 Branch INSULIN) 100 unit/mL (70-30) injection insulin NPH 2018-05 Yes [id number] Inject 80 Univers and regular 2-13 units AM, ity of human 00:00: 90 units [place] (NOVOLIN 00 PM Medical 70/30 U-100 Branch INSULIN) 100 unit/mL (70-30) injection insulin NPH 2018-05 Yes [id number] Inject 80 Univers and regular 2-13 units AM, ity of human 00:00: 90 units [place] (NOVOLIN 00 PM Medical 70/30 U-100 Branch INSULIN) 100 unit/mL (70-30) injection insulin NPH 2018-05 2020- No [id number] Inject 80 Univers and regular 2-13 03-20 units AM, it y of human 00:00: 00:00 90 units [place] (NOVOLIN 00 :00 PM Medical 70/30 U-100 Branch INSULIN) 100 unit/mL (70-30) injection FUROSEMIDE 2018-05 Yes [id number] TAKE 1 U nivers 20 mg 2-11 TABLET BY ity of tablet 00:00: MOUTH ONCE DAILY Medical Branch FUROSEMIDE 2018-05 Yes [id number] TAKE 1 U nivers 20 mg 2-11 TABLET BY ity of tablet 00:00: MOUTH ONCE DAILY Medical Branch FUROSEMIDE 2018-05 Yes [id number] TAKE 1 U nivers 20 mg 2-11 TABLET BY ity of tablet 00:00: MOUTH ONCE [place] DAILY Medical Branch FUROSEMIDE 2019- Yes [id number] TAKE 1 U nivers 20 mg 2-11 TABLET BY ity of tablet 00:00: MOUTH ONCE DAILY Medical Branch FUROSEMIDE 2019- Yes [id number] TAKE 1 U nivers 20 mg 2-11 TABLET BY ity of tablet 00:00: MOUTH ONCE Medical Branch FUROSEMIDE 2019- Yes [id number] TAKE 1 U nivers 20 mg 2-11 TABLET BY ity of tablet 00:00: MOUTH ONCE DAILY Medical Branch FUROSEMIDE 2019- Yes [id number] TAKE 1 U nivers 20 mg 2-11 TABLET BY ity of tablet 00:00: MOUTH ONCE DAILY Medical Branch FUROSEMIDE 2019- Yes [id number] TAKE 1 U nivers 20 mg 2-11 TABLET BY ity of tablet 00:00: MOUTH ONCE DAILY Medical Branch FUROSEMIDE 2019- Yes [id number] TAKE 1 U nivers 20 mg 2-11 TABLET BY ity of tablet 00:00: MOUTH ONCE DAILY Medical Branch FUROSEMIDE 2019- Yes [id number] TAKE 1 U nivers 20 mg 2-11 TABLET BY ity of tablet 00:00: MOUTH ONCE DAILY Medical Branch FUROSEMIDE 2019- Yes [id number] TAKE 1 U nivers 20 mg 2-11 TABLET BY ity of tablet 00:00: MOUTH ONCE [place] DAILY Medical Branch FUROSEMIDE 2019- Yes [id number] TAKE 1 U nivers 20 mg 2-11 TABLET BY ity of tablet 00:00: MOUTH ONCE [place] DAILY Medical Branch FUROSEMIDE 2019- Yes [id number] TAKE 1 U nivers 20 mg 2-11 TABLET BY ity of tablet 00:00: MOUTH ONCE [place] DAILY Medical Branch FUROSEMIDE 2019- Yes [id number] TAKE 1 U nivers 20 mg 2-11 TABLET BY ity of tablet 00:00: MOUTH ONCE [place] DAILY Medical Branch FUROSEMIDE 2019- Yes [id number] TAKE 1 U nivers 20 mg 2-11 TABLET BY ity of tablet 00:00: MOUTH ONCE DAILY Medical Branch FUROSEMIDE 2019- Yes [id number] TAKE 1 U nivers 20 mg 2-11 TABLET BY ity of tablet 00:00: MOUTH ONCE [place] DAILY Medical Branch FUROSEMIDE 2019- Yes [id number] TAKE 1 U nivers 20 mg 2-11 TABLET BY ity of tablet 00:00: MOUTH ONCE [place] DAILY Medical Branch FUROSEMIDE 2019- Yes [id number] TAKE 1 U nivers 20 mg 2-11 TABLET BY ity of tablet 00:00: MOUTH ONCE [place] DAILY Medical Branch FUROSEMIDE 2019- Yes [id number] TAKE 1 U nivers 20 mg 2-11 TABLET BY ity of tablet 00:00: MOUTH ONCE [place] [address] DAILY Medical Branch FUROSEMIDE 2019- Yes [id number] TAKE 1 U nivers 20 mg 2-11 TABLET BY ity of tablet 00:00: MOUTH ONCE [place] DAILY Medical Branch FUROSEMIDE 2019- Yes [id number] TAKE 1 U nivers 20 mg 2-11 TABLET BY ity of tablet 00:00: MOUTH ONCE [place] DAILY Medical Branch FUROSEMIDE 2018- Yes [id number] TAKE 1 U nivers 20 mg 2-11 TABLET BY ity of tablet 00:00: MOUTH ONCE [place] DAILY Medical Branch FUROSEMIDE 2019- Yes [id number] TAKE 1 U nivers 20 mg 2-11 TABLET BY ity of tablet 00:00: MOUTH ONCE [place] [address] DAILY Medical Branch FUROSEMIDE 2019- Yes [id number] TAKE 1 U nivers 20 mg 2-11 TABLET BY ity of tablet 00:00: MOUTH ONCE [place] DAILY Medical Branch FUROSEMIDE 2019- Yes [id number] TAKE 1 U nivers 20 mg 2-11 TABLET BY ity of tablet 00:00: MOUTH ONCE [place] DAILY Medical Branch FUROSEMIDE 2019- Yes [id number] TAKE 1 U nivers 20 mg 2-11 TABLET BY ity of tablet 00:00: MOUTH ONCE [place] [address] DAILY Medical Branch FUROSEMIDE 2019- Yes [id number] TAKE 1 U nivers 20 mg 2-11 TABLET BY ity of tablet 00:00: MOUTH ONCE [place] [address] DAILY Medical Branch FUROSEMIDE 2019- 2020- No [id number] TAKE 1 Univers 20 mg 2-11 08-18 TABLET BY ity of tablet 00:00: 00:00 MOUTH ONCE [place] 00 :00 DAILY Medical Branch FUROSEMIDE 2019- 2020- No [id number] TAKE 1 Univers 20 mg 2-11 08-18 TABLET BY ity of tablet 00:00: 00:00 MOUTH ONCE [place] 00 :00 DAILY Medical Branch FUROSEMIDE 2019- 2020- No [id number] TAKE 1 Univers 20 mg 2-11 08-18 TABLET BY ity of tablet 00:00: 00:00 MOUTH ONCE [place] 00 :00 DAILY Medical Branch pantoprazol 2019- Yes [id number] 40mg Take 1 Univers e 40 mg EC 0-29 tablet by ity of tablet 00:00: mouth [place] 00 daily. Medical Branch potassium 2018-05 Yes [id number] 10meq Take 1 U nivers chloride 10 0-29 tablet by ity of mEq CR 00:00: mouth [place] tablet 00 daily. Medical Branch albuterol 2018-05 Yes [id number] 2{puff} Inhale 2 Univers 90 0-29 Puffs ity of mcg/actuati 00:00: every 6 [place] on inhaler 00 (six) Medical hours as Branch needed for Wheezing or Shortness of Breath. nitroglycer 2018-05 Yes [id number] 1 tab SL Univers in 0.4 mg 0-29 q5min up ity of sublingual 00:00: to 3 doses [place] tablet 00 PRN chest Medical pain, then Branch activate 911. DULoxetine 2018-05 Yes [id number] 30mg Take 1 Univers 30 mg 0-29 capsule by ity of capsule 00:00: mouth [place] 00 daily. Medical Branch pantoprazol 2018-05 Yes [id number] 40mg Take 1 Univers e 40 mg EC 0-29 tablet by ity of tablet 00:00: mouth [place] 00 daily. Medical Branch potassium 2018-05 Yes [id number] 10meq Take 1 U nivers chloride 10 0-29 tablet by ity of mEq CR 00:00: mouth [place] tablet 00 daily. Medical Branch albuterol 2018-05 Yes [id number] 2{puff} Inhale 2 Univers 90 0-29 Puffs ity of mcg/actuati 00:00: every 6 [place] on inhaler 00 (six) Medical hours as Branch needed for Wheezing or Shortness of Breath. nitroglycer 2018-05 Yes [id number] 1 tab SL Univers in 0.4 mg 0-29 q5min up ity of sublingual 00:00: to 3 doses [place] tablet 00 PRN chest Medical pain, then Branch activate 911. DULoxetine 2018-05 Yes [id number] 30mg Take 1 Univers 30 mg 0-29 capsule by ity of capsule 00:00: mouth [place] 00 daily. Medical Branch pantoprazol 2018-05 Yes [id number] 40mg Take 1 Univers e 40 mg EC 0-29 tablet by ity of tablet 00:00: mouth [place] 00 daily. Medical Branch potassium 2018-05 Yes [id number] 10meq Take 1 U nivers chloride 10 0-29 tablet by ity of mEq CR 00:00: mouth [place] tablet 00 daily. Medical Branch albuterol 2018-05 Yes [id number] 2{puff} Inhale 2 Univers 90 0-29 Puffs ity of mcg/actuati 00:00: every 6 [place] on inhaler 00 (six) Medical hours as Branch needed for Wheezing or Shortness of Breath. nitroglycer 2018-05 Yes [id number] 1 tab SL Univers in 0.4 mg 0-29 q5min up ity of sublingual 00:00: to 3 doses [place] tablet 00 PRN chest Medical pain, then Branch activate 911. DULoxetine 2018-05 Yes [id number] 30mg Take 1 Univers 30 mg 0-29 capsule by ity of capsule 00:00: mouth [place] 00 daily. Medical Branch pantoprazol 2018-05 Yes [id number] 40mg Take 1 Univers e 40 mg EC 0-29 tablet by ity of tablet 00:00: mouth [place] 00 daily. Medical Branch potassium 2018-05 Yes [id number] 10meq Take 1 U nivers chloride 10 0-29 tablet by ity of mEq CR 00:00: mouth [place] tablet 00 daily. Medical Branch albuterol 2018-05 Yes [id number] 2{puff} Inhale 2 Univers 90 0-29 Puffs ity of mcg/actuati 00:00: every 6 [place] on inhaler 00 (six) Medical hours as Branch needed for Wheezing or Shortness of Breath. nitroglycer 2018-05 Yes [id number] 1 tab SL Univers in 0.4 mg 0-29 q5min up ity of sublingual 00:00: to 3 doses [place] tablet 00 PRN chest Medical pain, then Branch activate 911. DULoxetine 2018-05 Yes [id number] 30mg Take 1 Univers 30 mg 0-29 capsule by ity of capsule 00:00: mouth [place] 00 daily. Medical Branch pantoprazol 2018-05 Yes [id number] 40mg Take 1 Univers e 40 mg EC 0-29 tablet by ity of tablet 00:00: mouth [place] 00 daily. Medical Branch potassium 2018-05 Yes [id number] 10meq Take 1 U nivers chloride 10 0-29 tablet by ity of mEq CR 00:00: mouth [place] tablet 00 daily. Medical Branch albuterol 2018-05 Yes [id number] 2{puff} Inhale 2 Univers 90 0-29 Puffs ity of mcg/actuati 00:00: every 6 [place] on inhaler 00 (six) Medical hours as Branch needed for Wheezing or Shortness of Breath. nitroglycer 2018-05 Yes [id number] 1 tab SL Univers in 0.4 mg 0-29 q5min up ity of sublingual 00:00: to 3 doses [place] tablet 00 PRN chest Medical pain, then Branch activate 911. DULoxetine 2018-05 Yes [id number] 30mg Take 1 Univers 30 mg 0-29 capsule by ity of capsule 00:00: mouth [place] 00 daily. Medical Branch pantoprazol 2018-05 Yes [id number] 40mg Take 1 Univers e 40 mg EC 0-29 tablet by ity of tablet 00:00: mouth [place] 00 daily. Medical Branch potassium 2018-05 Yes [id number] 10meq Take 1 U nivers chloride 10 0-29 tablet by ity of mEq CR 00:00: mouth [place] tablet 00 daily. Medical Branch albuterol 2018-05 Yes [id number] 2{puff} Inhale 2 Univers 90 0-29 Puffs ity of mcg/actuati 00:00: every 6 [place] inhaler 00 (six) Medical hours as Branch needed for Wheezing or Shortness of Breath. nitroglycer 2018-05 Yes [id number] 1 tab SL Univers in 0.4 mg 0-29 q5min up ity of sublingual 00:00: to 3 doses [place] tablet 00 PRN chest Medical pain, then Branch activate 911. DULoxetine 2018-05 Yes [id number] 30mg Take 1 Univers 30 mg 0-29 capsule by ity of capsule 00:00: mouth [place] 00 daily. Medical Branch pantoprazol 2018-05 Yes [id number] 40mg Take 1 Univers e 40 mg EC 0-29 tablet by ity of tablet 00:00: mouth [place] 00 daily. Medical Branch potassium 2018-05 Yes [id number] 10meq Take 1 U nivers chloride 10 0-29 tablet by ity of mEq CR 00:00: mouth [place] tablet 00 daily. Medical Branch albuterol 2018-05 Yes [id number] 2{puff} Inhale 2 Univers 90 0-29 Puffs ity of mcg/actuati 00:00: every 6 [place] inhaler 00 (six) Medical hours as Branch needed for Wheezing or Shortness of Breath. nitroglycer 2018-05 Yes [id number] 1 tab [facility] in 0.4 mg 0-29 q5min up it[facility] of sublingual 00:00: to 3 doses [place] tablet 00 PRN chest Medical pain, then Branch activate 911. DULoxetine 2018-05 Yes [id number] 30mg Take 1 [facility] 30 mg 0-29 capsule by [facility] of capsule 00:00: mouth [place] 00 daily. [facility] pantoprazol 2018-05 Yes [id number] 40mg Take 1 [facility] e 40 mg EC 0-29 tablet by [facility] of tablet 00:00: mouth [place] 00 daily. [facility] potassium 2018-05 Yes [id number] 10meq Take 1 [facility] nivers chloride 10 0-29 tablet by ity of mEq CR 00:00: mouth [place] tablet 00 daily. [facility] albuterol 2018-05 Yes [id number] 2{puff} Inhale 2 [facility] 90 0-29 Puffs ity of mcg/actuati 00:00: every 6 [place] as on inhaler 00 (six) Medical hours as Branch needed for Wheezing or Shortness of Breath. nitroglycer 2018-05 Yes [id number] 1 tab [facility] in 0.4 mg 0-29 q5min up [facility] of sublingual 00:00: to 3 doses [place] tablet 00 PRN chest Medical pain, then Branch activate 911. DULoxetine 2018-05 Yes [id number] 30mg Take 1 [facility] 30 mg 0-29 capsule by [facility] of capsule 00:00: mouth [place] 00 daily. [facility] pantoprazol 2018-05 Yes [id number] 40mg Take 1 [facility] e 40 mg EC 0-29 tablet by [facility] of tablet 00:00: mouth [place] 00 daily. [facility] potassium 2018-05 Yes [id number] 10meq Take 1 [facility] nivers chloride 10 0-29 tablet by [facility] of mEq CR 00:00: mouth [place] tablet 00 daily. [facility] albuterol 2018-05 Yes [id number] 2{puff} Inhale 2 [facility] 90 0-29 Puffs it[facility] of mcg/actuati 00:00: every 6 [place] inhaler 00 (six) Medical hours as Branch needed for Wheezing or Shortness of Breath. nitroglycer 2018-05 Yes [id number] 1 tab [facility] in 0.4 mg 0-29 q5min up [facility] of sublingual 00:00: to 3 doses [place] tablet 00 PRN chest Medical pain, then Branch activate 911. DULoxetine 2018-05 Yes [id number] 30mg Take 1 [facility] 30 mg 0-29 capsule by [facility] of capsule 00:00: mouth [place] 00 daily. [facility] pantoprazol 2018-05 Yes [id number] 40mg Take 1 [facility] e 40 mg EC 0-29 tablet by [facility] of tablet 00:00: mouth [place] 00 daily. [facility] potassium 2018-05 Yes [id number] 10meq Take 1 [facility] nivers chloride 10 0-29 tablet by [facility] of mEq CR 00:00: mouth [place] tablet 00 daily. [facility] albuterol 2018-05 Yes [id number] 2{puff} Inhale 2 [facility] 90 0-29 Puffs ity of mcg/actuati 00:00: every 6 [place] inhaler 00 (six) Medical hours as Branch needed for Wheezing or Shortness of Breath. nitroglycer 2018-05 Yes [id number] 1 tab [facility] in 0.4 mg 0-29 q5min up [facility] of sublingual 00:00: to 3 doses [place] tablet 00 PRN chest Medical pain, then Branch activate 911. DULoxetine 2018-05 Yes [id number] 30mg Take 1 [facility] 30 mg 0-29 capsule by [facility] of capsule 00:00: mouth [place] 00 daily. [facility] pantoprazol 2018-05 Yes [id number] 40mg Take 1 [facility] e 40 mg EC 0-29 tablet by [facility] of tablet 00:00: mouth [place] 00 daily. [facility] potassium 2018-05 Yes [id number] 10meq Take 1 [facility] n[facility] chloride 10 0-29 tablet by [facility] of mEq CR 00:00: mouth [place] tablet 00 daily. [facility] albuterol 2018-05 Yes [id number] 2{puff} Inhale 2 [facility] 90 0-29 Puffs ity of mcg/actuati 00:00: every 6 [place] inhaler 00 (six) Medical hours as Branch needed for Wheezing or Shortness of Breath. nitroglycer 2018-05 Yes [id number] 1 tab [facility] in 0.4 mg 0-29 q5min up [facility] of sublingual 00:00: to 3 doses [place] tablet 00 PRN chest Medical pain, then Branch activate 911. DULoxetine 2018-05 Yes [id number] 30mg Take 1 [facility] 30 mg 0-29 capsule by [facility] of capsule 00:00: mouth [place] 00 daily. [facility] pantoprazol 2018-05 Yes [id number] 40mg Take 1 [facility] e 40 mg EC 0-29 tablet by [facility] of tablet 00:00: mouth [place] 00 daily. [facility] potassium 2018-05 Yes [id number] 10meq Take 1 [facility] n[facility] chloride 10 0-29 tablet by [facility] of mEq CR 00:00: mouth [place] tablet 00 daily. [facility] albuterol 2018-05 Yes [id number] 2{puff} Inhale 2 [facility] 90 0-29 Puffs ity of mcg/actuati 00:00: every 6 [place] [facility] [place] inhaler 00 (six) Medical hours as Branch needed for Wheezing or Shortness of Breath. nitroglycer 2018-05 Yes [id number] 1 tab [facility] in 0.4 mg 0-29 q5min up it[facility] of sublingual 00:00: to 3 doses [place] tablet 00 PRN chest Medical pain, then Branch activate 911. DULoxetine 2018-05 Yes [id number] 30mg Take 1 [facility] 30 mg 0-29 capsule by [facility] of capsule 00:00: mouth [place] 00 daily. [facility] pantoprazol 2018-05 Yes [id number] 40mg Take 1 [facility] e 40 mg EC 0-29 tablet by [facility] of tablet 00:00: mouth [place] 00 daily. [facility] potassium 2018-05 Yes [id number] 10meq Take 1 [facility] n[facility] chloride 10 0-29 tablet by [facility] of mEq CR 00:00: mouth [place] tablet 00 daily. [facility] albuterol 2018-05 Yes [id number] 2{puff} Inhale 2 [facility] 90 0-29 Puffs ity of mcg/actuati 00:00: every 6 [place] [facility] on inhaler 00 (six) Medical hours as Branch needed for Wheezing or Shortness of Breath. nitroglycer 2018-05 Yes [id number] 1 tab [facility] in 0.4 mg 0-29 q5min up [facility] of sublingual 00:00: to 3 doses [place] tablet 00 PRN chest Medical pain, then Branch activate 911. DULoxetine 2018-05 Yes [id number] 30mg Take 1 [facility] 30 mg 0-29 capsule by [facility] of capsule 00:00: mouth [place] 00 daily. [facility] albuterol 2018-05 Yes [id number] 2{puff} Inhale 2 [facility] 90 0-29 Puffs ity of mcg/actuati 00:00: every 6 [place] inhaler 00 (six) Medical hours as Branch needed for Wheezing or Shortness of Breath. nitroglycer 2018-05 Yes [id number] 1 tab [facility] in 0.4 mg 0-29 q5min up [facility] of sublingual 00:00: to 3 doses [place] tablet 00 PRN chest Medical pain, then Branch activate 911. DULoxetine 2018-05 Yes [id number] 30mg Take 1 [facility] 30 mg 0-29 capsule by [facility] of capsule 00:00: mouth [place] 00 daily. [facility] albuterol 2018-05 Yes [id number] 2{puff} Inhale 2 [facility] 90 0-29 Puffs ity of mcg/actuati 00:00: every 6 [place] inhaler 00 (six) Medical hours as Branch needed for Wheezing or Shortness of Breath. nitroglycer 2018-05 Yes [id number] 1 tab [facility] in 0.4 mg 0-29 q5min up it[facility] of sublingual 00:00: to 3 doses [place] tablet 00 PRN chest Medical pain, then Branch activate 911. albuterol 2018-05 Yes [id number] 2{puff} Inhale 2 [facility] 90 0-29 Puffs ity of mcg/actuati 00:00: every 6 [place] inhaler 00 (six) Medical hours as Branch needed for Wheezing or Shortness of Breath. nitroglycer 2018-05 Yes [id number] 1 tab [facility] in 0.4 mg 0-29 q5min up ity of sublingual 00:00: to 3 doses [place] tablet 00 PRN chest Medical pain, then Branch activate 911. albuterol 2018-05 Yes [id number] 2{puff} Inhale 2 [facility] 90 0-29 Puffs ity of mcg/actuati 00:00: every 6 [place] inhaler 00 (six) Medical hours as Branch needed for Wheezing or Shortness of Breath. nitroglycer 2018-05 Yes [id number] 1 tab [facility] in 0.4 mg 0-29 q5min up [facility] of sublingual 00:00: to 3 doses [place] tablet 00 PRN chest Medical pain, then Branch activate 911. albuterol 2018-05 Yes [id number] 2{puff} Inhale 2 [facility] 90 0-29 Puffs ity of mcg/actuati 00:00: every 6 [place] inhaler 00 (six) Medical hours as Branch needed for Wheezing or Shortness of Breath. nitroglycer 2018-05 Yes [id number] 1 tab [facility] in 0.4 mg 0-29 q5min up it[facility] of sublingual 00:00: to 3 doses [place] tablet 00 PRN chest Medical pain, then Branch activate 911. albuterol 2018-05 Yes [id number] 2{puff} Inhale 2 [facility] 90 0-29 Puffs ity of mcg/actuati 00:00: every 6 [place] inhaler 00 (six) Medical hours as Branch needed for Wheezing or Shortness of Breath. nitroglycer 2018-05 Yes [id number] 1 tab [facility] in 0.4 mg 0-29 q5min up it[facility] of sublingual 00:00: to 3 doses [place] tablet 00 PRN chest Medical pain, then Branch activate 911. albuterol 2018-05 Yes [id number] 2{puff} Inhale 2 [facility] 90 0-29 Puffs ity of mcg/actuati 00:00: every 6 [place] inhaler 00 (six) Medical hours as Branch needed for Wheezing or Shortness of Breath. nitroglycer 2018-05 Yes [id number] 1 tab [facility] in 0.4 mg 0-29 q5min up it[facility] of sublingual 00:00: to 3 doses [place] tablet 00 PRN chest Medical pain, then Branch activate 911. albuterol 2018-05 Yes [id number] 2{puff} Inhale 2 [facility] 90 0-29 Puffs ity of mcg/actuati 00:00: every 6 [place] inhaler 00 (six) Medical hours as Branch needed for Wheezing or Shortness of Breath. nitroglycer 2018-05 Yes [id number] 1 tab [facility] in 0.4 mg 0-29 q5min up it[facility] of sublingual 00:00: to 3 doses [place] tablet 00 PRN chest Medical pain, then Branch activate 911. albuterol 2018-05 Yes [id number] 2{puff} Inhale 2 [facility] 90 0-29 Puffs ity of mcg/actuati 00:00: every 6 [place] inhaler 00 (six) Medical hours as Branch needed for Wheezing or Shortness of Breath. nitroglycer 2018-05 Yes [id number] 1 tab [facility] in 0.4 mg 0-29 q5min up [facility] of sublingual 00:00: to 3 doses [place] tablet 00 PRN chest Medical pain, then Branch activate 911. albuterol 2018-05 Yes [id number] 2{puff} Inhale 2 [facility] 90 0-29 Puffs it[facility] of mcg/actuati 00:00: every 6 [place] inhaler 00 (six) Medical hours as Branch needed for Wheezing or Shortness of Breath. nitroglycer 2018-05 Yes [id number] 1 tab [facility] in 0.4 mg 0-29 q5min up it[facility] of sublingual 00:00: to 3 doses [place] tablet 00 PRN chest Medical pain, then Branch activate 911. albuterol 2018-05 Yes [id number] 2{puff} Inhale 2 [facility] 90 0-29 Puffs it[facility] of mcg/actuati 00:00: every 6 [place] inhaler 00 (six) Medical hours as Branch needed for Wheezing or Shortness of Breath. nitroglycer 2018-05 Yes [id number] 1 tab [facility] in 0.4 mg 0-29 q5min up [facility] of sublingual 00:00: to 3 doses [place] tablet 00 PRN chest Medical pain, then Branch activate 911. albuterol 2018-05 Yes [id number] 2{puff} Inhale 2 [facility] 90 0-29 Puffs it[facility] of mcg/actuati 00:00: every 6 [place] on inhaler 00 (six) Medical hours as Branch needed for Wheezing or Shortness of Breath. nitroglycer 2018-05 Yes [id number] 1 tab [facility] in 0.4 mg 0-29 q5min up it[facility] of sublingual 00:00: to 3 doses [place] tablet 00 PRN chest Medical pain, then Branch activate 911. albuterol 2018-05 Yes [id number] 2{puff} Inhale 2 [facility] 90 0-29 Puffs it[facility] of mcg/actuati 00:00: every 6 [place] on inhaler 00 (six) Medical hours as Branch needed for Wheezing or Shortness of Breath. nitroglycer 2018-05 Yes [id number] 1 tab [facility] in 0.4 mg 0-29 q5min up it[facility] of sublingual 00:00: to 3 doses [place] tablet 00 PRN chest Medical pain, then Branch activate 911. albuterol 2018-05 Yes [id number] 2{puff} Inhale 2 [facility] 90 0-29 Puffs ity of mcg/actuati 00:00: every 6 [place] on inhaler 00 (six) Medical hours as Branch needed for Wheezing or Shortness of Breath. nitroglycer 2018-05 Yes [id number] 1 tab [facility] in 0.4 mg 0-29 q5min up ity of sublingual 00:00: to 3 doses [place] tablet 00 PRN chest Medical pain, then Branch activate 911. albuterol 2018-05 Yes [id number] 2{puff} Inhale 2 [facility] 90 0-29 Puffs ity of mcg/actuati 00:00: every 6 [place] [facility] on inhaler 00 (six) Medical hours as Branch needed for Wheezing or Shortness of Breath. nitroglycer 2018-05 Yes [id number] 1 tab [facility] in 0.4 mg 0-29 q5min up ity of sublingual 00:00: to 3 doses [place] tablet 00 PRN chest Medical pain, then Branch activate 911. albuterol 2018-05 Yes [id number] 2{puff} Inhale 2 [facility] 90 0-29 Puffs ity of mcg/actuati 00:00: every 6 [place] as on inhaler 00 (six) Medical hours as Branch needed for Wheezing or Shortness of Breath. nitroglycer 2018-05 Yes [id number] 1 tab [facility] in 0.4 mg 0-29 q5min up ity of sublingual 00:00: to 3 doses [place] tablet 00 PRN chest Medical pain, then Branch activate 911. albuterol 2018-05 Yes [id number] 2{puff} Inhale 2 [facility] 90 0-29 Puffs ity of mcg/actuati 00:00: every 6 [place] as on inhaler 00 (six) Medical hours as Branch needed for Wheezing or Shortness of Breath. nitroglycer 2018-05 Yes [id number] 1 tab [facility] in 0.4 mg 0-29 q5min up ity of sublingual 00:00: to 3 doses [place] tablet 00 PRN chest Medical pain, then Branch activate 911. albuterol 2018-05 Yes [id number] 2{puff} Inhale 2 [facility] 90 0-29 Puffs ity of mcg/actuati 00:00: every 6 [place] [facility] on inhaler 00 (six) Medical hours as Branch needed for Wheezing or Shortness of Breath. nitroglycer 2018-05 Yes [id number] 1 tab [facility] in 0.4 mg 0-29 q5min up ity of sublingual 00:00: to 3 doses [place] tablet 00 PRN chest Medical pain, then Branch activate 911. albuterol 2018-05 Yes [id number] 2{puff} Inhale 2 [facility] 90 0-29 Puffs it[facility] of mcg/actuati 00:00: every 6 [place] [facility] on inhaler 00 (six) Medical hours as Branch needed for Wheezing or Shortness of Breath. nitroglycer 2018-05 Yes [id number] 1 tab [facility] in 0.4 mg 0-29 q5min up it[facility] of sublingual 00:00: to 3 doses [place] tablet 00 PRN chest Medical pain, then Branch activate 911. albuterol 2018-05 Yes [id number] 2{puff} Inhale 2 [facility] 90 0-29 Puffs it[facility] of mcg/actuati 00:00: every 6 [place] [facility] on inhaler 00 (six) Medical hours as Branch needed for Wheezing or Shortness of Breath. nitroglycer 2018-05 Yes [id number] 1 tab [facility] in 0.4 mg 0-29 q5min up ity of sublingual 00:00: to 3 doses [place] tablet 00 PRN chest Medical pain, then Branch activate 911. albuterol 2018-05 Yes [id number] 2{puff} Inhale 2 [facility] 90 0-29 Puffs ity of mcg/actuati 00:00: every 6 [place] [facility] on inhaler 00 (six) Medical hours as Branch needed for Wheezing or Shortness of Breath. nitroglycer 2018-05 Yes [id number] 1 tab [facility] in 0.4 mg 0-29 q5min up ity of sublingual 00:00: to 3 doses [place] tablet 00 PRN chest Medical pain, then Branch activate 911. albuterol 2018-05 Yes [id number] 2{puff} Inhale 2 [facility] 90 0-29 Puffs it[facility] of mcg/actuati 00:00: every 6 [place] [facility] on inhaler 00 (six) Medical hours as Branch needed for Wheezing or Shortness of Breath. nitroglycer 2018-05 Yes [id number] 1 tab [facility] in 0.4 mg 0-29 q5min up it[facility] of sublingual 00:00: to 3 doses [place] tablet 00 PRN chest Medical pain, then Branch activate 911. albuterol 2018-05 Yes [id number] 2{puff} Inhale 2 [facility] 90 0-29 Puffs ity of mcg/actuati 00:00: every 6 [place] on inhaler 00 (six) Medical hours as Branch needed for Wheezing or Shortness of Breath. nitroglycer 2018-05 Yes [id number] 1 tab [facility] in 0.4 mg 0-29 q5min up ity of sublingual 00:00: to 3 doses [place] tablet 00 PRN chest Medical pain, then Branch activate 911. albuterol 2018-05 Yes [id number] 2{puff} Inhale 2 [facility] 90 0-29 Puffs ity of mcg/actuati 00:00: every 6 [place] [facility] on inhaler 00 (six) Medical hours as Branch needed for Wheezing or Shortness of Breath. nitroglycer 2018-05 Yes [id number] 1 tab [facility] in 0.4 mg 0-29 q5min up ity of sublingual 00:00: to 3 doses [place] tablet 00 PRN chest Medical pain, then Branch activate 911. albuterol 2018-05 Yes [id number] 2{puff} Inhale 2 [facility] 90 0-29 Puffs ity of mcg/actuati 00:00: every 6 [place] [facility] on inhaler 00 (six) Medical hours as Branch needed for Wheezing or Shortness of Breath. nitroglycer 2018-05 Yes [id number] 1 tab [facility] in 0.4 mg 0-29 q5min up ity of sublingual 00:00: to 3 doses [place] tablet 00 PRN chest Medical pain, then Branch activate 911. nitroglycer 2018-05 Yes [id number] 1 tab [facility] in 0.4 mg 0-29 q5min up ity of sublingual 00:00: to 3 doses [place] tablet 00 PRN chest Medical pain, then Branch activate 911. nitroglycer 2018-05 Yes [id number] 1 tab [facility] in 0.4 mg 0-29 q5min up ity of sublingual 00:00: to 3 doses [place] tablet 00 PRN chest Medical pain, then Branch activate 911. nitroglycer 2018-05 Yes [id number] 1 tab [facility] in 0.4 mg 0-29 q5min up ity of sublingual 00:00: to 3 doses [place] tablet 00 PRN chest Medical pain, then Branch activate 911. nitroglycer 2018-05 Yes [id number] 1 tab [facility] in 0.4 mg 0-29 q5min up ity of sublingual 00:00: to 3 doses [place] tablet 00 PRN chest Medical pain, then Branch activate 911. nitroglycer 2018-05 Yes [id number] 1 tab [facility] in 0.4 mg 0-29 q5min up ity of sublingual 00:00: to 3 doses [place] tablet 00 PRN chest Medical pain, then Branch activate 911. nitroglycer 2018-05 Yes [id number] 1 tab [facility] in 0.4 mg 0-29 q5min up ity of sublingual 00:00: to 3 doses [place] tablet 00 PRN chest Medical pain, then Branch activate 911. nitroglycer 2018-05 Yes [id number] 1 tab [facility] in 0.4 mg 0-29 q5min up ity of sublingual 00:00: to 3 doses [place] tablet 00 PRN chest Medical pain, then Branch activate 911. nitroglycer 2018-05 Yes [id number] 1 tab [facility] in 0.4 mg 0-29 q5min up ity of sublingual 00:00: to 3 doses [place] tablet 00 PRN chest Medical pain, then Branch activate 911. nitroglycer 2018-05 Yes [id number] 1 tab [facility] in 0.4 mg 0-29 q5min up ity of sublingual 00:00: to 3 doses [place] tablet 00 PRN chest Medical pain, then Branch activate 911. nitroglycer 2018-05 Yes [id number] 1 tab [facility] in 0.4 mg 0-29 q5min up ity of sublingual 00:00: to 3 doses [place] tablet 00 PRN chest Medical pain, then Branch activate 911. nitroglycer 2018-05 Yes [id number] 1 tab [facility] in 0.4 mg 0-29 q5min up ity of sublingual 00:00: to 3 doses [place] tablet 00 PRN chest Medical pain, then Branch activate 911. nitroglycer 2018-05 Yes [id number] 1 tab [facility] in 0.4 mg 0-29 q5min up ity of sublingual 00:00: to 3 doses [place] tablet 00 PRN chest Medical pain, then Branch activate 911. nitroglycer 2018-05 Yes [id number] 1 tab [facility] in 0.4 mg 0-29 q5min up ity of sublingual 00:00: to 3 doses [place] tablet 00 PRN chest Medical pain, then Branch activate 911. nitroglycer 2018-05 Yes [id number] 1 tab [facility] in 0.4 mg 0-29 q5min up ity of sublingual 00:00: to 3 doses [place] tablet 00 PRN chest Medical pain, then Branch activate 911. nitroglycer 2018-05 Yes [id number] 1 tab [facility] in 0.4 mg 0-29 q5min up ity of sublingual 00:00: to 3 doses [place] tablet 00 PRN chest Medical pain, then Branch activate 911. nitroglycer 2018-05 Yes [id number] 1 tab [facility] in 0.4 mg 0-29 q5min up ity of sublingual 00:00: to 3 doses [place] tablet 00 PRN chest Medical pain, then Branch activate 911. nitroglycer 2018-05 Yes [id number] 1 tab [facility] in 0.4 mg 0-29 q5min up ity of sublingual 00:00: to 3 doses [place] tablet 00 PRN chest Medical pain, then Branch activate 911. nitroglycer 2018-05 Yes [id number] 1 tab [facility] in 0.4 mg 0-29 q5min up ity of sublingual 00:00: to 3 doses [place] tablet 00 PRN chest Medical pain, then Branch activate 911. nitroglycer 2018-05 Yes [id number] 1 tab [facility] in 0.4 mg 0-29 q5min up ity of sublingual 00:00: to 3 doses [place] tablet 00 PRN chest Medical pain, then Branch activate 911. nitroglycer 2018-05 Yes [id number] 1 tab [facility] in 0.4 mg 0-29 q5min up ity of sublingual 00:00: to 3 doses [place] tablet 00 PRN chest Medical pain, then Branch activate 911. nitroglycer 2018-05 Yes [id number] 1 tab [facility] in 0.4 mg 0-29 q5min up ity of sublingual 00:00: to 3 doses [place] tablet 00 PRN chest Medical pain, then Branch activate 911. nitroglycer 2018-05 Yes [id number] 1 tab [facility] in 0.4 mg 0-29 q5min up ity of sublingual 00:00: to 3 doses [place] tablet 00 PRN chest Medical pain, then Branch activate 911. nitroglycer 2018-05 Yes [id number] 1 tab [facility] in 0.4 mg 0-29 q5min up ity of sublingual 00:00: to 3 doses [place] tablet 00 PRN chest Medical pain, then Branch activate 911. nitroglycer 2018-05 Yes [id number] 1 tab [facility] in 0.4 mg 0-29 q5min up ity of sublingual 00:00: to 3 doses [place] tablet 00 PRN chest Medical pain, then Branch activate 911. nitroglycer 2018-05 Yes [id number] 1 tab [facility] in 0.4 mg 0-29 q5min up ity of sublingual 00:00: to 3 doses [place] tablet 00 PRN chest Medical pain, then Branch activate 911. nitroglycer 2018-05 Yes [id number] 1 tab [facility] in 0.4 mg 0-29 q5min up ity of sublingual 00:00: to 3 doses [place] tablet 00 PRN chest Medical pain, then Branch activate 911. nitroglycer 2018-05 Yes [id number] 1 tab [facility] in 0.4 mg 0-29 q5min up ity of sublingual 00:00: to 3 doses [place] tablet 00 PRN chest Medical pain, then Branch activate 911. nitroglycer 2018-05 Yes [id number] 1 tab [facility] in 0.4 mg 0-29 q5min up ity of sublingual 00:00: to 3 doses [place] tablet 00 PRN chest Medical pain, then Branch activate 911. nitroglycer 2018-05 Yes [id number] 1 tab [facility] in 0.4 mg 0-29 q5min up ity of sublingual 00:00: to 3 doses [place] tablet 00 PRN chest Medical pain, then Branch activate 911. nitroglycer 2018-05 Yes [id number] 1 tab [facility] in 0.4 mg 0-29 q5min up ity of sublingual 00:00: to 3 doses [place] tablet 00 PRN chest Medical pain, then Branch activate 911. nitroglycer 2018-05 Yes [id number] 1 tab [facility] in 0.4 mg 0-29 q5min up ity of sublingual 00:00: to 3 doses [place] tablet 00 PRN chest Medical pain, then Branch activate 911. nitroglycer 2018-05 Yes [id number] 1 tab [facility] in 0.4 mg 0-29 q5min up ity of sublingual 00:00: to 3 doses [place] tablet 00 PRN chest Medical pain, then Branch activate 911. nitroglycer 2018-05 Yes [id number] 1 tab [facility] in 0.4 mg 0-29 q5min up ity of sublingual 00:00: to 3 doses [place] tablet 00 PRN chest Medical pain, then Branch activate 911. nitroglycer 2018-05 Yes [id number] 1 tab [facility] in 0.4 mg 0-29 q5min up ity of sublingual 00:00: to 3 doses [place] tablet 00 PRN chest Medical pain, then Branch activate 911. nitroglycer 2018-05 Yes [id number] 1 tab [facility] in 0.4 mg 0-29 q5min up ity of sublingual 00:00: to 3 doses [place] tablet 00 PRN chest Medical pain, then Branch activate 911. nitroglycer 2018-05 Yes [id number] 1 tab [facility] in 0.4 mg 0-29 q5min up ity of sublingual 00:00: to 3 doses [place] tablet 00 PRN chest Medical pain, then Branch activate 911. nitroglycer 2018-05 Yes [id number] 1 tab [facility] in 0.4 mg 0-29 q5min up ity of sublingual 00:00: to 3 doses [place] tablet 00 PRN chest Medical pain, then Branch activate 911. nitroglycer 2018-05 Yes [id number] 1 tab [facility] in 0.4 mg 0-29 q5min up ity of sublingual 00:00: to 3 doses [place] tablet 00 PRN chest Medical pain, then Branch activate 911. nitroglycer 2018-05 Yes [id number] 1 tab [facility] in 0.4 mg 0-29 q5min up ity of sublingual 00:00: to 3 doses [place] tablet 00 PRN chest Medical pain, then Branch activate 911. nitroglycer 2018-05 Yes [id number] 1 tab [facility] in 0.4 mg 0-29 q5min up ity of sublingual 00:00: to 3 doses [place] tablet 00 PRN chest Medical pain, then Branch activate 911. nitroglycer 2018-05 Yes [id number] 1 tab [facility] in 0.4 mg 0-29 q5min up ity of sublingual 00:00: to 3 doses [place] tablet 00 PRN chest Medical pain, then Branch activate 911. nitroglycer 2018-05 Yes [id number] 1 tab [facility] in 0.4 mg 0-29 q5min up ity of sublingual 00:00: to 3 doses [place] tablet 00 PRN chest Medical pain, then Branch activate 911. nitroglycer 2018-05 Yes [id number] 1 tab [facility] in 0.4 mg 0-29 q5min up ity of sublingual 00:00: to 3 doses [place] tablet 00 PRN chest Medical pain, then Branch activate 911. nitroglycer 2018-05 Yes [id number] 1 tab [facility] in 0.4 mg 0-29 q5min up ity of sublingual 00:00: to 3 doses [place] tablet 00 PRN chest Medical pain, then Branch activate 911. nitroglycer 2018-05 Yes [id number] 1 tab [facility] in 0.4 mg 0-29 q5min up ity of sublingual 00:00: to 3 doses [place] tablet 00 PRN chest Medical pain, then Branch activate 911. nitroglycer 2018-05 Yes [id number] 1 tab [facility] in 0.4 mg 0-29 q5min up ity of sublingual 00:00: to 3 doses [place] tablet 00 PRN chest Medical pain, then Branch activate 911. nitroglycer 2018-05 Yes [id number] 1 tab [facility] in 0.4 mg 0-29 q5min up ity of sublingual 00:00: to 3 doses [place] tablet 00 PRN chest Medical pain, then Branch activate 911. atorvastati 2018-05 Yes [id number] 40mg Take 1 [facility] n (LIPITOR) 0-29 tablet by ity of 40 mg 00:00: mouth at [place] tablet 00 bedtime. [facility] clopidogrel 2018-05 Yes [id number] 75mg Take 1 [facility] (PLAVIX) 75 0-29 tablet by ity of mg tablet 00:00: mouth [place] 00 daily. [facility] DULoxetine 2018-05 Yes [id number] 30mg Take 1 [facility] 30 mg 0-29 capsule by ity of capsule 00:00: mouth [place] 00 daily. [facility] pantoprazol 2018-05 Yes [id number] 40mg Take 1 [facility] e 40 mg EC 0-29 tablet by [facility]y of tablet 00:00: mouth [place] 00 daily. [facility] potassium 2018-05 Yes [id number] 10meq Take 1 [facility] chloride 10 0-29 tablet by ity of mEq CR 00:00: mouth [place] tablet 00 daily. [facility] albuterol 2018-05 Yes [id number] 2{puff} Inhale 2 [facility] 90 0-29 Puffs ity of mcg/actuati 00:00: every 6 [place] [facility] on inhaler 00 (six) Medical hours as Branch needed for Wheezing or Shortness of Breath. nitroglycer 2018-05 Yes [id number] 1 tab [facility] in 0.4 mg 0-29 q5min up it[facility] of sublingual 00:00: to 3 doses [place] tablet 00 PRN chest Medical pain, then Branch activate 911. atorvastati 2018-05 Yes [id number] 40mg Take 1 [facility] n (LIPITOR) 0-29 tablet by ity of 40 mg 00:00: mouth at [place] tablet 00 bedtime. [facility] clopidogrel 2018-05 Yes [id number] 75mg Take 1 [facility] (PLAVIX) 75 0-29 tablet by ity of mg tablet 00:00: mouth [place] 00 daily. [facility] DULoxetine 2018-05 Yes [id number] 30mg Take 1 [facility] 30 mg 0-29 capsule by ity of capsule 00:00: mouth [place] 00 daily. [facility] pantoprazol 2018-05 Yes [id number] 40mg Take 1 [facility] e 40 mg EC 0-29 tablet by ity of tablet 00:00: mouth [place] 00 daily. [facility] potassium 2018-05 Yes [id number] 10meq Take 1 [facility] nivers chloride 10 0-29 tablet by ity of mEq CR 00:00: mouth [place] tablet 00 daily. [facility] albuterol 2018-05 Yes [id number] 2{puff} Inhale 2 [facility] 90 0-29 Puffs ity of mcg/actuati 00:00: every 6 [place] on inhaler 00 (six) Medical hours as Branch needed for Wheezing or Shortness of Breath. nitroglycer 2018-05 Yes [id number] 1 tab [facility] in 0.4 mg 0-29 q5min up ity of sublingual 00:00: to 3 doses [place] tablet 00 PRN chest Medical pain, then Branch activate 911. atorvastati 2018-05 Yes [id number] 40mg Take 1 [facility] n (LIPITOR) 0-29 tablet by ity of 40 mg 00:00: mouth at [place] tablet 00 bedtime. [facility] clopidogrel 2018-05 Yes [id number] 75mg Take 1 [facility] (PLAVIX) 75 0-29 tablet by ity of mg tablet 00:00: mouth [place] 00 daily. [facility] DULoxetine 2018-05 Yes [id number] 30mg Take 1 [facility] 30 mg 0-29 capsule by it[facility] of capsule 00:00: mouth [place] 00 daily. [facility] pantoprazol 2018-05 Yes [id number] 40mg Take 1 [facility] e 40 mg EC 0-29 tablet by ity of tablet 00:00: mouth [place] 00 daily. [facility] potassium 2018-05 Yes [id number] 10meq Take 1 [facility] n[facility] chloride 10 0-29 tablet by ity of mEq CR 00:00: mouth [place] tablet 00 daily. [facility] albuterol 2018-05 Yes [id number] 2{puff} Inhale 2 [facility] 90 0-29 Puffs ity of mcg/actuati 00:00: every 6 [place] inhaler 00 (six) Medical hours as Branch needed for Wheezing or Shortness of Breath. nitroglycer 2018-05 Yes [id number] 1 tab [facility] in 0.4 mg 0-29 q5min up it[facility] of sublingual 00:00: to 3 doses [place] tablet 00 PRN chest Medical pain, then Branch activate 911. atorvastati 2018-05 Yes [id number] 40mg Take 1 [facility] n (LIPITOR) 0-29 tablet by ity of 40 mg 00:00: mouth at [place] tablet 00 bedtime. [facility] clopidogrel 2018-05 Yes [id number] 75mg Take 1 [facility] (PLAVIX) 75 0-29 tablet by it[facility] of mg tablet 00:00: mouth [place] 00 daily. [facility] DULoxetine 2018-05 Yes [id number] 30mg Take 1 [facility] 30 mg 0-29 capsule by [facility] of capsule 00:00: mouth [place] 00 daily. [facility] pantoprazol 2018-05 Yes [id number] 40mg Take 1 [facility] e 40 mg EC 0-29 tablet by [facility] of tablet 00:00: mouth [place] 00 daily. [facility] potassium 2018-05 Yes [id number] 10meq Take 1 [facility] n[facility] chloride 10 0-29 tablet by ity of mEq CR 00:00: mouth [place] tablet 00 daily. [facility] albuterol 2018-05 Yes [id number] 2{puff} Inhale 2 [facility] 90 0-29 Puffs ity of mcg/actuati 00:00: every 6 [place] inhaler 00 (six) Medical hours as Branch needed for Wheezing or Shortness of Breath. nitroglycer 2018-05 Yes [id number] 1 tab [facility] in 0.4 mg 0-29 q5min up [facility] of sublingual 00:00: to 3 doses [place] tablet 00 PRN chest Medical pain, then Branch activate 911. atorvastati 2018-05 Yes [id number] 40mg Take 1 [facility] n (LIPITOR) 0-29 tablet by ity of 40 mg 00:00: mouth at [place] tablet 00 bedtime. [facility] clopidogrel 2018-05 Yes [id number] 75mg Take 1 [facility] (PLAVIX) 75 0-29 tablet by ity of mg tablet 00:00: mouth [place] 00 daily. [facility] DULoxetine 2018-05 Yes [id number] 30mg Take 1 [facility] 30 mg 0-29 capsule by it[facility] of capsule 00:00: mouth [place] 00 daily. [facility] pantoprazol 2018-05 Yes [id number] 40mg Take 1 [facility] e 40 mg EC 0-29 tablet by ity of tablet 00:00: mouth [place] 00 daily. [facility] potassium 2018-05 Yes [id number] 10meq Take 1 [facility] n[facility] chloride 10 0-29 tablet by ity of mEq CR 00:00: mouth [place] tablet 00 daily. [facility] albuterol 2018-05 Yes [id number] 2{puff} Inhale 2 [facility] 90 0-29 Puffs ity of mcg/actuati 00:00: every 6 [place] inhaler 00 (six) Medical hours as Branch needed for Wheezing or Shortness of Breath. nitroglycer 2018-05 Yes [id number] 1 tab [facility] in 0.4 mg 0-29 q5min up it[facility] of sublingual 00:00: to 3 doses [place] tablet 00 PRN chest Medical pain, then Branch activate 911. atorvastati 2018-05 Yes [id number] 40mg Take 1 [facility] n (LIPITOR) 0-29 tablet by ity of 40 mg 00:00: mouth at [place] tablet 00 bedtime. [facility] clopidogrel 2018-05 Yes [id number] 75mg Take 1 [facility] (PLAVIX) 75 0-29 tablet by ity of mg tablet 00:00: mouth [place] 00 daily. [facility] DULoxetine 2018-05 Yes [id number] 30mg Take 1 [facility] 30 mg 0-29 capsule by ity of capsule 00:00: mouth [place] 00 daily. [facility] pantoprazol 2018-05 Yes [id number] 40mg Take 1 [facility] e 40 mg EC 0-29 tablet by ity of tablet 00:00: mouth [place] 00 daily. [facility] potassium 2018-05 Yes [id number] 10meq Take 1 [facility] n[facility] chloride 10 0-29 tablet by ity of mEq CR 00:00: mouth [place] tablet 00 daily. [facility] albuterol 2018-05 Yes [id number] 2{puff} Inhale 2 [facility] 90 0-29 Puffs ity of mcg/actuati 00:00: every 6 [place] inhaler 00 (six) Medical hours as Branch needed for Wheezing or Shortness of Breath. nitroglycer 2018-05 Yes [id number] 1 tab [facility] in 0.4 mg 0-29 q5min up it[facility] of sublingual 00:00: to 3 doses [place] tablet 00 PRN chest Medical pain, then Branch activate 911. atorvastati 2018-05 Yes [id number] 40mg Take 1 [facility] n (LIPITOR) 0-29 tablet by ity of 40 mg 00:00: mouth at [place] tablet 00 bedtime. [facility] clopidogrel 2018-05 Yes [id number] 75mg Take 1 [facility] (PLAVIX) 75 0-29 tablet by ity of mg tablet 00:00: mouth [place] 00 daily. [facility] DULoxetine 2018-05 Yes [id number] 30mg Take 1 [facility] 30 mg 0-29 capsule by ity of capsule 00:00: mouth [place] 00 daily. [facility] pantoprazol 2018-05 Yes [id number] 40mg Take 1 [facility] e 40 mg EC 0-29 tablet by ity of tablet 00:00: mouth [place] 00 daily. [facility] potassium 2018-05 Yes [id number] 10meq Take 1 [facility] n[facility] chloride 10 0-29 tablet by ity of mEq CR 00:00: mouth [place] tablet 00 daily. [facility] albuterol 2018-05 Yes [id number] 2{puff} Inhale 2 [facility] 90 0-29 Puffs ity of mcg/actuati 00:00: every 6 [place] inhaler 00 (six) Medical hours as Branch needed for Wheezing or Shortness of Breath. nitroglycer 2018-05 Yes [id number] 1 tab [facility] in 0.4 mg 0-29 q5min up [facility] of sublingual 00:00: to 3 doses [place] tablet 00 PRN chest Medical pain, then Branch activate 911. DULoxetine 2018-05 Yes [id number] 30mg Take 1 [facility] 30 mg 0-29 capsule by ity of capsule 00:00: mouth [place] 00 daily. [facility] pantoprazol 2018-05 Yes [id number] 40mg Take 1 [facility] e 40 mg EC 0-29 tablet by ity of tablet 00:00: mouth [place] 00 daily. [facility] potassium 2018-05 Yes [id number] 10meq Take 1 [facility] n[facility] chloride 10 0-29 tablet by ity of mEq CR 00:00: mouth [place] tablet 00 daily. [facility] albuterol 2018-05 Yes [id number] 2{puff} Inhale 2 [facility] 90 0-29 Puffs ity of mcg/actuati 00:00: every 6 [place] inhaler 00 (six) Medical hours as Branch needed for Wheezing or Shortness of Breath. nitroglycer 2018-05 Yes [id number] 1 tab [facility] in 0.4 mg 0-29 q5min up it[facility] of sublingual 00:00: to 3 doses [place] tablet 00 PRN chest Medical pain, then Branch activate 911. DULoxetine 2018-05 Yes [id number] 30mg Take 1 [facility] 30 mg 0-29 capsule by ity of capsule 00:00: mouth [place] 00 daily. [facility] pantoprazol 2018-05 Yes [id number] 40mg Take 1 [facility] e 40 mg EC 0-29 tablet by ity of tablet 00:00: mouth [place] 00 daily. [facility] potassium 2018-05 Yes [id number] 10meq Take 1 [facility] chloride 10 0-29 tablet by ity of mEq CR 00:00: mouth [place] tablet 00 daily. [facility] albuterol 2018-05 Yes [id number] 2{puff} Inhale 2 [facility] 90 0-29 Puffs ity of mcg/actuati 00:00: every 6 [place] inhaler 00 (six) Medical hours as Branch needed for Wheezing or Shortness of Breath. nitroglycer 2018-05 Yes [id number] 1 tab [facility] in 0.4 mg 0-29 q5min up [facility] of sublingual 00:00: to 3 doses [place] tablet 00 PRN chest Medical pain, then Branch activate 911. DULoxetine 2018-05 Yes [id number] 30mg Take 1 [facility] 30 mg 0-29 [...] Bran ch activate 911. albuterol 2018-05- No [id number] 2{puff} Inhale 2 [facility] 90 0-29 12-19 Puffs ity of mcg/actuati 00:00: 00:00 every 6 [place] on inhaler 00 :00 (six) Medical hours as Branch needed for Wheezing or Shortness of Breath. albuterol 2018-05 2020- No [id number] 2{puff} Inhale 2 [facility] 90 0-29 12-19 Puffs ity of mcg/actuati 00:00: 00:00 every 6 [place] on inhaler 00 :00 (six) Medical hours as Branch needed for Wheezing or Shortness of Breath. pantoprazol 2018-05 2020- No [id number] 40mg Take 1 [facility] e 40 mg EC -08 tablet by ity of tablet 00:00: 00:00 mouth [place] 00 :00 daily. [facility] potassium 2018-05 2020- No [id number] 10meq Take 1 [facility] chloride 10 -08 tablet by it y of mEq CR 00:00: 00:00 mouth [place] tablet 00 :00 daily. [facility] atorvastati 2018-05 2020- No [id number] 40mg Take 1 [facility] n (LIPITOR) 03-20 tablet by it y of 40 mg 00:00: 00:00 mouth at [place] tablet 00 :00 bedtime. [facility] clopidogrel 2018-05 2020- No [id number] 75mg Take 1 [facility] (PLAVIX) 75 0-29 [...] ity of LOW DOSE) 15:12: daily. [place] 81 mg EC 10 Medical tablet Branch [...] 10 Medical tablet Branch atorvastati 0 Yes [id number] 40mg Take 1 [facility] n (LIPITOR) 7-05 tablet by ity of 40 mg 00:00: mouth at [place] tablet 00 bedtime. [facility] DULoxetine 2019-0 Yes [id number] 30mg Take 1 [facility] n[facility] 30 mg 7-05 capsule by ity of capsule 00:00: mouth [place] 00 daily. [facility] clopidogrel 2018- Yes [id number] 75mg Take 1 [facility] (PLAVIX) 75 7-05 tablet by ity of mg tablet 00:00: mouth [place] 00 daily. [facility] furosemide 2019-0 Yes [id number] 20mg Take 1 [facility] n[facility] (LASIX) 20 7-05 tablet by ity of mg tablet 00:00: mouth [place] 00 daily. [facility] isosorbide 2019- Yes [id number] 30mg Take 1 [facility] mononitrate 7-05 tablet by ity of 30 mg 24 hr 00:00: mouth [place] tablet 00 daily. [facility] metoprolol 2019 Yes [id number] 25mg Take 1 [facility] nivers tartrate 25 7-05 tablet by ity of mg tablet 00:00: mouth [place] 00 daily. [facility] fluconazole 2019- Yes [id number] 150mg Take 1 [facility] (DIFLUCAN) 7-05 tablet by ity of 150 mg 00:00: mouth [place] tablet 00 SEE-INSTRU Medical CTIONS. 1 Branch PO weekly/PRN yeast infection atorvastati Yes [id number] 40mg Take 1 [facility] n (LIPITOR) 7-05 tablet by ity of 40 mg 00:00: mouth at [place] tablet 00 bedtime. [facility] DULoxetine Yes [id number] 30mg Take 1 [facility] nivers 30 mg 7-05 capsule by ity of capsule 00:00: mouth [place] 00 daily. [facility] clopidogrel Yes [id number] 75mg Take 1 [facility] (PLAVIX) 75 7-05 tablet by ity of mg tablet 00:00: mouth [place] 00 daily. [facility] furosemide Yes [id number] 20mg Take 1 [facility] n[facility] (LASIX) 20 7-05 tablet by ity of mg tablet 00:00: mouth [place] 00 daily. [facility] isosorbide Yes [id number] 30mg Take 1 [facility] mononitrate 7-05 tablet by ity of 30 mg 24 hr 00:00: mouth [place] tablet 00 daily. [facility] metoprolol Yes [id number] 25mg Take 1 [facility] nivers tartrate 25 7-05 tablet by ity of mg tablet 00:00: mouth [place] 00 daily. [facility] fluconazole Yes [id number] 150mg Take 1 [facility] (DIFLUCAN) 7-05 tablet by ity of 150 mg 00:00: mouth [place] tablet 00 SEE-INSTRU Medical CTIONS. 1 Branch PO weekly/PRN yeast infection atorvastati Yes [id number] 40mg Take 1 [facility] n (LIPITOR) 7-05 tablet by ity of 40 mg 00:00: mouth at [place] tablet 00 bedtime. [facility] DULoxetine Yes [id number] 30mg Take 1 [facility] nivers 30 mg 7-05 capsule by ity of capsule 00:00: mouth [place] 00 daily. [facility] clopidogrel Yes [id number] 75mg Take 1 [facility] (PLAVIX) 75 7-05 tablet by ity of mg tablet 00:00: mouth [place] 00 daily. [facility] furosemide 2019-0 Yes [id number] 20mg Take 1 [facility] n[facility] (LASIX) 20 7-05 tablet by ity of mg tablet 00:00: mouth [place] 00 daily. [facility] isosorbide 2019- Yes [id number] 30mg Take 1 [facility] mononitrate 7-05 tablet by ity of 30 mg 24 hr 00:00: mouth [place] tablet 00 daily. [facility] metoprolol 2019- Yes [id number] 25mg Take 1 [facility] nivers tartrate 25 7-05 tablet by ity of mg tablet 00:00: mouth [place] 00 daily. [facility] fluconazole 2019- Yes [id number] 150mg Take 1 [facility] (DIFLUCAN) 7-05 tablet by ity of 150 mg 00:00: mouth [place] tablet 00 SEE-INSTRU Medical CTIONS. 1 Branch PO weekly/PRN yeast infection atorvastati 2019-0 Yes [id number] 40mg Take 1 [facility] n (LIPITOR) 7-05 tablet by ity of 40 mg 00:00: mouth at [place] tablet 00 bedtime. [facility] DULoxetine 2019- Yes [id number] 30mg Take 1 [facility] nivers 30 mg 7-05 capsule by ity of capsule 00:00: mouth [place] 00 daily. [facility] clopidogrel 2019-0 Yes [id number] 75mg Take 1 [facility] (PLAVIX) 75 7-05 tablet by ity of mg tablet 00:00: mouth [place] 00 daily. [facility] furosemide 2019- Yes [id number] 20mg Take 1 [facility] n[facility] (LASIX) 20 7-05 tablet by ity of mg tablet 00:00: mouth [place] 00 daily. [facility] isosorbide 2019- Yes [id number] 30mg Take 1 [facility] mononitrate 7-05 tablet by ity of 30 mg 24 hr 00:00: mouth [place] tablet 00 daily. [facility] metoprolol 2019- Yes [id number] 25mg Take 1 [facility] nivers tartrate 25 7-05 tablet by ity of mg tablet 00:00: mouth [place] 00 daily. [facility] fluconazole 2019-0 Yes [id number] 150mg Take 1 [facility] (DIFLUCAN) 7-05 tablet by ity of 150 mg 00:00: mouth [place] tablet 00 SEE-INSTRU Medical CTIONS. 1 Branch PO weekly/PRN yeast infection atorvastati 2019- Yes [id number] 40mg Take 1 [facility] n (LIPITOR) 7-05 tablet by ity of 40 mg 00:00: mouth at [place] tablet 00 bedtime. [facility] DULoxetine 2019 Yes [id number] 30mg Take 1 [facility] nivers 30 mg 7-05 capsule by ity of capsule 00:00: mouth [place] 00 daily. [facility] clopidogrel Yes [id number] 75mg Take 1 [facility] (PLAVIX) 75 7-05 tablet by ity of mg tablet 00:00: mouth [place] 00 daily. [facility] furosemide Yes [id number] 20mg Take 1 [facility] n[facility] (LASIX) 20 7-05 tablet by ity of mg tablet 00:00: mouth [place] 00 daily. [facility] isosorbide Yes [id number] 30mg Take 1 [facility] mononitrate 7-05 tablet by ity of 30 mg 24 hr 00:00: mouth [place] tablet 00 daily. [facility] metoprolol Yes [id number] 25mg Take 1 [facility] nivers tartrate 25 7-05 tablet by ity of mg tablet 00:00: mouth [place] 00 daily. [facility] fluconazole Yes [id number] 150mg Take 1 [facility] (DIFLUCAN) 7-05 tablet by ity of 150 mg 00:00: mouth [place] tablet 00 SEE-INSTRU Medical CTIONS. 1 Branch PO weekly/PRN yeast infection atorvastati Yes [id number] 40mg Take 1 [facility] n (LIPITOR) 7-05 tablet by ity of 40 mg 00:00: mouth at [place] tablet 00 bedtime. [facility] DULoxetine Yes [id number] 30mg Take 1 [facility] nivers 30 mg 7-05 capsule by ity of capsule 00:00: mouth [place] 00 daily. [facility] clopidogrel Yes [id number] 75mg Take 1 [facility] (PLAVIX) 75 7-05 tablet by ity of mg tablet 00:00: mouth [place] 00 daily. [facility] furosemide Yes [id number] 20mg Take 1 [facility] n[facility] (LASIX) 20 7-05 tablet by ity of mg tablet 00:00: mouth [place] 00 daily. [facility] isosorbide Yes [id number] 30mg Take 1 [facility] mononitrate 7-05 tablet by ity of 30 mg 24 hr 00:00: mouth [place] tablet 00 daily. [facility] metoprolol 2019 Yes [id number] 25mg Take 1 [facility] nivers tartrate 25 7-05 tablet by ity of mg tablet 00:00: mouth [place] 00 daily. [facility] fluconazole 2019- Yes [id number] 150mg Take 1 [facility] (DIFLUCAN) 7-05 tablet by ity of 150 mg 00:00: mouth [place] tablet 00 SEE-INSTRU Medical CTIONS. 1 Branch PO weekly/PRN yeast infection atorvastati Yes [id number] 40mg Take 1 [facility] n (LIPITOR) 7-05 tablet by ity of 40 mg 00:00: mouth at [place] tablet 00 bedtime. [facility] DULoxetine Yes [id number] 30mg Take 1 [facility] nivers 30 mg 7-05 capsule by ity of capsule 00:00: mouth [place] 00 daily. [facility] clopidogrel Yes [id number] 75mg Take 1 [facility] (PLAVIX) 75 7-05 tablet by ity of mg tablet 00:00: mouth [place] 00 daily. [facility] furosemide Yes [id number] 20mg Take 1 [facility] n[facility] (LASIX) 20 7-05 tablet by ity of mg tablet 00:00: mouth [place] 00 daily. [facility] isosorbide Yes [id number] 30mg Take 1 [facility] mononitrate 7-05 tablet by ity of 30 mg 24 hr 00:00: mouth [place] tablet 00 daily. [facility] metoprolol Yes [id number] 25mg Take 1 [facility] nivers tartrate 25 7-05 tablet by ity of mg tablet 00:00: mouth [place] 00 daily. [facility] fluconazole Yes [id number] 150mg Take 1 [facility] (DIFLUCAN) 7-05 tablet by ity of 150 mg 00:00: mouth [place] tablet 00 SEE-INSTRU Medical CTIONS. 1 Branch PO weekly/PRN yeast infection atorvastati Yes [id number] 40mg Take 1 [facility] n (LIPITOR) 7-05 tablet by ity of 40 mg 00:00: mouth at [place] tablet 00 bedtime. [facility] DULoxetine Yes [id number] 30mg Take 1 [facility] nivers 30 mg 7-05 capsule by ity of capsule 00:00: mouth [place] 00 daily. [facility] clopidogrel Yes [id number] 75mg Take 1 [facility] (PLAVIX) 75 7-05 tablet by ity of mg tablet 00:00: mouth [place] 00 daily. [facility] furosemide 2019- Yes [id number] 20mg Take 1 [facility] n[facility] (LASIX) 20 7-05 tablet by ity of mg tablet 00:00: mouth [place] 00 daily. [facility] isosorbide Yes [id number] 30mg Take 1 [facility] mononitrate 7-05 tablet by ity of 30 mg 24 hr 00:00: mouth [place] tablet 00 daily. [facility] metoprolol Yes [id number] 25mg Take 1 [facility] nivers tartrate 25 7-05 tablet by ity of mg tablet 00:00: mouth [place] 00 daily. [facility] fluconazole Yes [id number] 150mg Take 1 [facility] (DIFLUCAN) 7-05 tablet by ity of 150 mg 00:00: mouth [place] tablet 00 SEE-INSTRU Medical CTIONS. 1 Branch PO weekly/PRN yeast infection metoprolol Yes [id number] 25mg Take 1 [facility] nivers tartrate 25 7-05 tablet by ity of mg tablet 00:00: mouth [place] 00 daily. [facility] metoprolol Yes [id number] 25mg Take 1 [facility] nivers tartrate 25 7-05 tablet by ity of mg tablet 00:00: mouth [place] 00 daily. [facility] metoprolol Yes [id number] 25mg Take 1 [facility] nivers tartrate 25 7-05 tablet by ity of mg tablet 00:00: mouth [place] 00 daily. [facility] metoprolol Yes [id number] 25mg Take 1 [facility] nivers tartrate 25 7-05 tablet by ity of mg tablet 00:00: mouth [place] 00 daily. [facility] metoprolol Yes [id number] 25mg Take 1 [facility] nivers tartrate 25 7-05 tablet by ity of mg tablet 00:00: mouth [place] 00 daily. [facility] metoprolol Yes [id number] 25mg Take 1 [facility] nivers tartrate 25 7-05 tablet by ity of mg tablet 00:00: mouth [place] 00 daily. [facility] metoprolol Yes [id number] 25mg Take 1 [facility] nivers tartrate 25 7-05 tablet by ity of mg tablet 00:00: mouth [place] 00 daily. [facility] metoprolol 2020- No [id number] 25mg Take 1 [facility] tartrate 25 11-30 03-20 tablet by it y of mg tablet 00:00: 00:00 mouth [place] 00 :00 daily. [facility] isosorbide 2020- No [id number] 30mg Take 1 [facility] mononitrate 11-30 tablet by it y of 30 mg 24 hr 00:00: 00:00 mouth [place] tablet 00 :00 daily. [facility] isosorbide 2020- No [id number] 30mg Take 1 [facility] mononitrate 11-30 tablet by it y of 30 mg 24 hr 00:00: 00:00 [place] tablet 00 :00 daily. [facility] isosorbide 2020- No [id number] 30mg Take 1 [facility] mononitrate 11-30 tablet [...] mouth ity o f tablet 18:18: daily. [place] [address] Medical Branch aspirin 2019-0 Yes 81mg Take 81 mg [facility] ers (ASPIRIN 6-19 by mouth ity of LOW DOSE) 18:18: daily. [place] 81 mg EC 24 Medical tablet Branch POTASSIUM 2018-0 Yes 1{tbl} Take 1 [facility] ers CHLORIDE 6-19 tablet by ity of (KLOR-CON 18:18: mouth [place] 10 ORAL) 24 daily. Medical Branch pantoprazol 0 Yes 40mg Take 40 mg [facility] e 40 mg EC 6-19 by mouth ity o f tablet 18:18: daily. [place] [address] [facility] Branch aspirin 2018-0 Yes 81mg Take 81 mg [facility] ers (ASPIRIN 6-19 by mouth ity of LOW DOSE) 18:18: daily. [place] 81 mg EC 24 Medical tablet Branch POTASSIUM 2018-0 Yes 1{tbl} Take 1 [facility] ers CHLORIDE 6-19 tablet by ity of (KLOR-CON 18:18: mouth [place] 10 ORAL) 24 daily. Medical Branch pantoprazol 0 Yes 40mg Take 40 mg [facility] e 40 mg EC 6-19 by mouth ity o f tablet 18:18: daily. [place] [address] Medical Branch aspirin 2018-0 Yes 81mg Take 81 mg [facility] ers (ASPIRIN 6-19 by mouth ity of LOW DOSE) 18:18: daily. [place] 81 mg EC 24 Medical tablet Branch POTASSIUM 2018-0 Yes 1{tbl} Take 1 [facility] ers CHLORIDE 6-19 tablet by ity of (KLOR-CON 18:18: mouth [place] 10 ORAL) 24 daily. Medical Branch pantoprazol 0 Yes 40mg Take 40 mg [facility] e 40 mg EC 6-19 by mouth ity o f tablet 18:18: daily. [place] [address] Medical Branch aspirin 2018-0 Yes 81mg Take 81 mg [facility] ers (ASPIRIN 6-19 by mouth ity of LOW DOSE) 18:18: daily. [place] 81 mg EC 24 Medical tablet Branch phenazopyri 2018-0 Yes [id number] 200mg Take 1 [facility] dine 200 mg 6-02 tablet by ity of tablet 00:00: mouth 3 (three) Medical times Branch daily. phenazopyri 2019-0 Yes [id number] 200mg Take 1 [facility] dine 200 mg 6-02 tablet by ity of tablet 00:00: mouth 3 (three) Medical times Branch daily. phenazopyri 2018-0 Yes [id number] 200mg Take 1 [facility] dine 200 mg 6-02 tablet by ity of tablet 00:00: mouth 3 (three) Medical times Branch daily. phenazopyri 2018-0 Yes [id number] 200mg Take 1 [facility] dine 200 mg 6-02 tablet by ity of tablet 00:00: mouth 3 (three) Medical times Branch daily. phenazopyri 2018-0 Yes [id number] 200mg Take 1 [facility] dine 200 mg 6-02 tablet by ity of tablet 00:00: mouth 3 (three) Medical times Branch daily. phenazopyri 2018- Yes [id number] 200mg Take 1 [facility] dine 200 mg 6-02 tablet by ity of tablet 00:00: mouth (three) Medical times Branch daily. phenazopyri 2018- Yes [id number] 200mg Take 1 [facility] dine 200 mg 6-02 tablet by ity of tablet 00:00: mouth (three) Medical times Branch daily. phenazopyri 2018- Yes [id number] 200mg Take 1 [facility] dine 200 mg 6-02 tablet by ity of tablet 00:00: mouth (three) Medical times Branch daily. phenazopyri 2018-0 Yes [id number] 200mg Take 1 [facility] dine 200 mg 6-02 tablet by ity of tablet 00:00: mouth (three) Medical times Branch daily. phenazopyri 2018-0 Yes [id number] 200mg Take 1 [facility] dine 200 mg 6-02 tablet by ity of tablet 00:00: mouth (three) Medical times Branch daily. phenazopyri 2018-0 Yes [id number] 200mg Take 1 [facility] dine 200 mg 6-02 tablet by ity of tablet 00:00: mouth 3 (three) Medical times Branch daily. phenazopyri 2018-0 Yes [id number] 200mg Take 1 [facility] dine 200 mg 6-02 tablet by ity of tablet 00:00: mouth 3 (three) Medical times Branch daily. phenazopyri 2018-0 Yes [id number] 200mg Take 1 [facility] dine 200 mg 6-02 tablet by ity of tablet 00:00: mouth 3 (three) Medical times Branch daily. phenazopyri 2019-0 Yes [id number] 200mg Take 1 [facility] dine 200 mg 6-02 tablet by ity of tablet 00:00: mouth 3 (three) Medical times Branch daily. phenazopyri 2018-0 Yes [id number] 200mg Take 1 [facility] dine 200 mg 6-02 tablet by ity of tablet 00:00: mouth 3 (three) Medical times Branch daily. phenazopyri 2018-0 Yes [id number] 200mg Take 1 [facility] dine 200 mg 6-02 tablet by ity of tablet 00:00: mouth 3 (three) Medical times Branch daily. phenazopyri 2018-0 Yes [id number] 200mg Take 1 [facility] dine 200 mg 6-02 tablet by ity of tablet 00:00: mouth 3 (three) Medical times Branch daily. phenazopyri 2018-0 Yes [id number] 200mg Take 1 [facility] dine 200 mg 6-02 tablet by ity of tablet 00:00: mouth (three) Medical times Branch daily. phenazopyri 2018- Yes [id number] 200mg Take 1 [facility] dine 200 mg 6-02 tablet by ity of tablet 00:00: mouth (three) Medical times Branch daily. phenazopyri 2018-0 Yes [id number] 200mg Take 1 [facility] dine 200 mg 6-02 tablet by ity of tablet 00:00: mouth [place] (three) Medical times Branch daily. phenazopyri 2018-0 Yes [id number] 200mg Take 1 [facility] dine 200 mg 6-02 tablet by ity of tablet 00:00: mouth 3 [place] (three) Medical times Branch daily. phenazopyri 2018-0 Yes [id number] 200mg Take 1 [facility] dine 200 mg 6-02 tablet by ity of tablet 00:00: mouth 3 [place] (three) Medical times Branch daily. phenazopyri 2018-0 Yes [id number] 200mg Take 1 [facility] dine 200 mg 6-02 tablet by ity of tablet 00:00: mouth 3 [place] (three) Medical times Branch daily. phenazopyri 2018-0 Yes [id number] 200mg Take 1 [facility] dine 200 mg 6-02 tablet by ity of tablet 00:00: mouth 3 [place] [place] (three) Medical times Branch daily. phenazopyri 2019-0 Yes [id number] 200mg Take 1 [facility] dine 200 mg 6-02 tablet by ity of tablet 00:00: mouth 3 [place] 00 (three) Medical times Branch daily. phenazopyri 2018-0 Yes [id number] 200mg Take 1 [facility] dine 200 mg 6-02 tablet by ity of tablet 00:00: mouth 3 [place] 00 (three) Medical times Branch daily. phenazopyri 2018-0 Yes [id number] 200mg Take 1 [facility] dine 200 mg 6-02 tablet by ity of tablet 00:00: mouth 3 [place] 00 (three) Medical times Branch daily. phenazopyri 2018-0 Yes [id number] 200mg Take 1 [facility] dine 200 mg 6-02 tablet by ity of tablet 00:00: mouth 3 [place] 00 (three) Medical times Branch daily. phenazopyri 2018-0 Yes [id number] 200mg Take 1 [facility] dine 200 mg 6-02 tablet by ity of tablet 00:00: mouth 3 [place] 00 (three) Medical times Branch daily. phenazopyri 2018-0 Yes [id number] 200mg Take 1 [facility] dine 200 mg 6-02 tablet by ity of tablet 00:00: mouth 3 [place] 00 (three) Medical times Branch daily. phenazopyri 2018-0 Yes [id number] 200mg Take 1 [facility] dine 200 mg 6-02 tablet by ity of tablet 00:00: mouth 3 [place] 00 (three) Medical times Branch daily. phenazopyri 2018-0 Yes [id number] 200mg Take 1 [facility] dine 200 mg 6-02 tablet by ity of tablet 00:00: mouth 3 [place] 00 (three) Medical times Branch daily. phenazopyri 2018-0 Yes [id number] 200mg Take 1 [facility] dine 200 mg 6-02 tablet by ity of tablet 00:00: mouth 3 [place] 00 (three) Medical times Branch daily. phenazopyri 2018-0 Yes [id number] 200mg Take 1 [facility] dine 200 mg 6-02 tablet by ity of tablet 00:00: mouth 3 [place] 00 (three) Medical times Branch daily. phenazopyri 2018- 2020- No [id number] 200mg Take 1 [facility] dine 200 mg 6-02 08-14 tablet by it y of tablet 00:00: 00:00 mouth 3 [place] 00 :00 (three) Medical times Branch daily. phenazopyri 2020- No [id number] 200mg Take 1 [facility] dine 200 mg 10-28 0814 tablet by it y of tablet 00:00: 00:00 mouth 3 [place] 00 :00 (three) Medical times Branch daily. miSOPROStol 2018- Yes [id number] Take one [facility] 200 mcg 5-10 tablet the ity of tablet 00:00: night [place] 00 before Medical procedure, Branch take one table the morning of procedure. miSOPROStol 2018- Yes [id number] Take one [facility] 200 mcg 5-10 tablet the ity of tablet 00:00: night [place] 00 before Medical procedure, Branch take one table the morning of procedure. miSOPROStol 2018- Yes [id number] Take one [facility] 200 mcg 5-10 tablet the ity of tablet 00:00: night [place] 00 before Medical procedure, Branch take one table the morning of procedure. miSOPROStol Yes [id number] Take one [facility] 200 mcg 5-10 tablet the ity of tablet 00:00: night [place] 00 before Medical procedure, Branch take one table the morning of procedure. miSOPROStol 2018- Yes [id number] Take one [facility] 200 mcg 5-10 tablet the ity of tablet 00:00: night [place] 00 before Medical procedure, Branch take one table the morning of procedure. miSOPROStol 2018- Yes [id number] Take one [facility] 200 mcg 5-10 tablet the ity of tablet 00:00: night [place] 00 before Medical procedure, Branch take one table the morning of procedure. miSOPROStol 2019- No [id number] Take one [facility] 200 mcg 5-10 09-09 tablet the ity o f tablet 00:00: 00:00 night [place] 00 :00 before Medical procedure, Branch take one table the morning of procedure. miSOPROStol 2019- No [id number] Take one [facility] 200 mcg 5-10 09-09 tablet the ity o f tablet 00:00: 00:00 night [place] 00 :00 before Medical procedure, Branch take one table the morning of procedure. escitalopra 2018- Yes [id number] 10mg Take 1 [facility] m oxalate 4-30 tablet by ity o f (LEXAPRO) 00:00: mouth [place] 10 mg 00 daily. Medical tablet Branch escitalopra 2018- Yes [id number] 10mg Take 1 [facility] m oxalate 4-30 tablet by ity o f (LEXAPRO) 00:00: mouth [place] 10 mg 00 daily. Medical tablet Branch escitalopra Yes [id number] 10mg Take 1 [facility] m oxalate 4-30 tablet by ity o f (LEXAPRO) 00:00: mouth [place] 10 mg 00 daily. Medical tablet Branch escitalopra Yes [id number] 10mg Take 1 [facility] m oxalate 4-30 tablet by ity o f (LEXAPRO) 00:00: mouth [place] 10 mg 00 daily. Medical tablet Branch escitalopra Yes [id number] 10mg Take 1 [facility] m oxalate 4-30 tablet by ity o f (LEXAPRO) 00:00: mouth [place] 10 mg 00 daily. Medical tablet Branch escitalopra Yes [id number] 10mg Take 1 [facility] m oxalate 4-30 tablet by ity o f (LEXAPRO) 00:00: mouth [place] 10 mg 00 daily. Medical tablet Branch escitalopra 2019- No [id number] 10mg Take 1 [facility] m oxalate 4-30 09-09 tablet by ity of (LEXAPRO) 00:00: 00:00 mouth [place] 10 mg 00 :00 daily. Medical tablet Branch escitalopra 2019- No [id number] 10mg Take 1 [facility] m oxalate 4-30 09-09 tablet by ity of (LEXAPRO) 00:00: 00:00 mouth [place] 10 mg 00 :00 daily. Medical tablet Branch Nitrofurant 2018- Yes [id number] 100mg Take 1 [facility] oin&Nit. 4-25 capsule by ity o f Macrocryst 00:00: mouth [place] (MACROBID) 00 daily. Medical 100 mg Branch capsule Nitrofurant 2018- Yes [id number] 100mg Take 1 [facility] oin&Nit. 4-25 capsule by ity o f Macrocryst 00:00: mouth [place] (MACROBID) 00 daily. Medical 100 mg Branch capsule Nitrofurant 2018- Yes [id number] 100mg Take 1 [facility] oin&Nit. 4-25 capsule by ity o f Macrocryst 00:00: mouth [place] (MACROBID) 00 daily. Medical 100 mg Branch capsule Nitrofurant 2018- Yes [id number] 100mg Take 1 [facility] oin&Nit. 4-25 capsule by ity o f Macrocryst 00:00: mouth [place] (MACROBID) 00 daily. Medical 100 mg Branch capsule Nitrofurant 2019-0 Yes 100mg Take 1 [facility] oin&Nit. 4-25 capsule by ity o f Macrocryst 00:00: mouth [place] (MACROBID) 00 daily. Medical 100 mg Branch capsule Nitrofurant 2019-0 Yes [id number] 100mg Take 1 [facility] oin&Nit. 4-25 capsule [...] 100 mg Branch capsule Nitrofurant 2019-0 Yes [id number] 100mg Take 1 [facility] oin&Nit. 4-25 capsule by ity o f Macrocryst 00:00: mouth [place] (MACROBID) 00 daily. Medical 100 mg Branch capsule Nitrofurant 2019-0 Yes [id number] 100mg Take 1 [facility] oin&Nit. 4-25 capsule by ity o f Macrocryst 00:00: mouth [place] (MACROBID) 00 daily. Medical 100 mg Branch capsule Nitrofurant 2019-0 Yes [id number] 100mg Take 1 [facility] oin&Nit. 4-25 capsule by ity o f Macrocryst 00:00: mouth [place] (MACROBID) 00 daily. Medical 100 mg Branch capsule Nitrofurant 2018-0 Yes [id number] 100mg Take 1 [facility] oin&Nit. 4-25 capsule by ity o f Macrocryst 00:00: mouth [place] (MACROBID) 00 daily. Medical 100 mg Branch capsule Nitrofurant 2019-0 Yes [id number] 100mg Take 1 [facility] oin&Nit. 4-25 capsule by ity o f Macrocryst 00:00: mouth [place] (MACROBID) 00 daily. Medical 100 mg Branch capsule Nitrofurant 2018-0 Yes [id number] 100mg Take 1 [facility] oin&Nit. 4-25 capsule by ity o f Macrocryst 00:00: mouth [place] (MACROBID) 00 daily. Medical 100 mg Branch capsule Nitrofurant 2019-0 Yes [id number] 100mg Take 1 [facility] oin&Nit. 4-25 capsule by ity o f Macrocryst 00:00: mouth [place] (MACROBID) 00 daily. Medical 100 mg Branch capsule Nitrofurant 2019-0 Yes [id number] 100mg Take 1 [facility] oin&Nit. 4-25 capsule by ity o f Macrocryst 00:00: mouth [place] (MACROBID) 00 daily. Medical 100 mg Branch capsule Nitrofurant 2019-0 Yes [id number] 100mg Take 1 [facility] oin&Nit. 4-25 capsule by ity o f Macrocryst 00:00: mouth [place] (MACROBID) 00 daily. Medical 100 mg Branch capsule Nitrofurant 2019-0 Yes [id number] 100mg Take 1 [facility] oin&Nit. 4-25 capsule by ity o f Macrocryst 00:00: mouth [place] (MACROBID) 00 daily. Medical 100 mg Branch capsule Nitrofurant 2019-0 Yes [id number] 100mg Take 1 [facility] oin&Nit. 4-25 capsule by ity o f Macrocryst 00:00: mouth [place] (MACROBID) 00 daily. Medical 100 mg Branch capsule Nitrofurant 2019-0 Yes [id number] 100mg Take 1 [facility] oin&Nit. 4-25 capsule [...] 100 mg Branch capsule Nitrofurant 2018-0 Yes [id number] 100mg Take 1 [facility] oin&Nit. 4-25 capsule [...] 100 mg Branch capsule Nitrofurant 2019-0 Yes [id number] 100mg Take 1 [facility] oin&Nit. 4-25 capsule by ity o f Macrocryst 00:00: mouth [place] (MACROBID) 00 daily. Medical 100 mg Branch capsule Nitrofurant 2019-0 Yes [id number] 100mg Take 1 [facility] oin&Nit. 4-25 capsule by ity o f Macrocryst 00:00: mouth [place] (MACROBID) 00 daily. Medical 100 mg Branch capsule Nitrofurant 2019-0 Yes [id number] 100mg Take 1 [facility] oin&Nit. 4-25 capsule by ity o f Macrocryst 00:00: mouth [place] (MACROBID) 00 daily. Medical 100 mg Branch capsule Nitrofurant 2019-0 2020- No [id number] 100mg Take 1 [facility] oin&Nit. 4-25 08-14 capsule by ity of Macrocryst 00:00: 00:00 mouth [place] (MACROBID) 00 :00 daily. Medical 100 mg Branch capsule Nitrofurant 2019-0 2020- No [id number] 100mg Take 1 [facility] oin&Nit. 4-25 08-14 [...] 09-18 ity of tablet 00:00: 00:00 [place] 00 :00 Medical Branch levoFLOXaci 2019-0 2019- No Unive rs n 500 mg 09-18 ity of tablet 00:00: 00:00 [place] 00 :00 Medical Branch levETIRAcet 2019-0 Yes Univer s am 500 mg 4-06 ity of tablet 00:00: [place] 00 Medical Branch levETIRAcet 2019-0 Yes Univer s am 500 mg 4-06 ity of tablet 00:00: [place] 00 Medical Branch levETIRAcet 2019-0 Yes Univer s am 500 mg 4-06 ity of tablet 00:00: [place] 00 Medical Branch levETIRAcet 2019-0 Yes Univer s am 500 mg 4-06 ity of tablet 00:00: [place] 00 Medical Branch levETIRAcet 2019-0 Yes Univer s am 500 mg 4-06 ity of tablet 00:00: [place] 00 Medical Branch levETIRAcet 2019-0 Yes Univer s am 500 mg 4-06 ity of tablet 00:00: [place] 00 Medical Branch levETIRAcet 2019-0 Yes Univer s am 500 mg 4-06 ity of tablet 00:00: [place] 00 Medical Branch levETIRAcet 2019-0 Yes Univer s am 500 mg 4-06 ity of tablet 00:00: [place] 00 Medical Branch levETIRAcet 2019-0 Yes Univer s am 500 mg 4-06 ity of tablet 00:00: [place] 00 Medical Branch levETIRAcet 2019-0 Yes Univer [...] mg 4-06 ity of tablet 00:00: [place] 00 Medical Branch levETIRAcet 2019-0 Yes Univer [...] mg 4-06 ity of tablet 00:00: [place] 00 Medical Branch escitalopra 2019-0 Yes Univer s m oxalate 4-06 ity of 20 mg 00:00: [place] tablet 00 Medical Branch levETIRAcet 2019-0 Yes Univer s am 500 mg 4-06 ity of tablet 00:00: [place] 00 Medical Branch levETIRAcet 2019-0 Yes Univer s am 500 mg 4-06 ity of tablet 00:00: [place] 00 [facility] Branch levETIRAcet 2019-0 Yes Univer s am 500 mg 4-06 ity of tablet 00:00: [place] 00 Medical Branch levETIRAcet 2019-0 Yes Univer s am 500 mg 4-06 ity of tablet 00:00: [place] 00 [facility] Branch levETIRAcet 2019-0 Yes Univer s am 500 mg 4-06 ity of tablet 00:00: [place] 00 [facility] Branch levETIRAcet 2019-0 Yes Univer s am 500 mg 4-06 ity of tablet 00:00: [place] 00 [facility] Branch levETIRAcet 2019-0 Yes Univer s am 500 mg 4-06 ity of tablet 00:00: [place] 00 Medical Branch levETIRAcet 2019-0 Yes Univer s am 500 mg 4-06 ity of tablet 00:00: [place] 00 Medical Branch levETIRAcet 2019-0 Yes Univer s am 500 mg 4-06 ity of tablet 00:00: [place] 00 Medical Branch levETIRAcet 2019-0 Yes Univer s am 500 mg 4-06 ity of tablet 00:00: [place] 00 Medical Branch levETIRAcet 2019-0 Yes Univer s am 500 mg 4-06 ity of tablet 00:00: [place] 00 [facility] levETIRAcet 2019-0 2020- No Unive rs am 500 mg 4-06 08-14 ity of tablet 00:00: 00:00 [place] 00 :00 Medical Branch levETIRAcet 2019-0 2020- No Unive rs am 500 mg 09-01 ity of tablet 00:00: 00:00 [place] 00 :00 Medical Branch gabapentin 2019-0 Yes [id number] 800mg Take 1 [facility] 800 mg 4-05 tablet by ity of tablet 00:00: mouth 3 (three) Medical times Branch daily. metFORMIN 2019-0 Yes 1000mg Take 2 [facility] ers 500 mg 4-05 tablets by ity of tablet 00:00: [place] (two) Medical times Branch daily with meals. You can do two pills in the morning and one in the evening. gabapentin 2019-0 Yes [id number] 800mg Take 1 [facility] 800 mg 4-05 tablet by ity of tablet 00:00: [place] (three) Medical times Branch daily. metFORMIN 2019-0 Yes 1000mg Take 2 [facility] ers 500 mg 4-05 tablets by ity of tablet 00:00: [place] (two) Medical times Branch daily with meals. You can do two pills in the morning and one in the evening. gabapentin 2019-0 Yes [id number] 800mg Take 1 [facility] 800 mg 4-05 tablet by ity of tablet 00:00: [place] (three) Medical times Branch daily. metFORMIN 2019-0 Yes 1000mg Take 2 [facility] ers 500 mg 4-05 tablets by ity of tablet 00:00: [place] (two) Medical times Branch daily with meals. You can do two pills in the morning and one in the evening. gabapentin 2019-0 Yes [id number] 800mg Take 1 [facility] 800 mg 4-05 [...] one in the evening. gabapentin 2019-0 Yes [id number] 800mg Take 1 [facility] 800 mg 4-05 [...] injection breakfast and dinner. gabapentin 2019-0 Yes [id number] 800mg Take 1 [facility] 800 mg 4-05 [...] injection breakfast and dinner. gabapentin 2019-0 Yes [id number] 800mg Take 1 [facility] 800 mg 4-05 [...] injection breakfast and dinner. gabapentin 2019-0 Yes [id number] 800mg Take 1 [facility] 800 mg 4-05 [...] injection breakfast and dinner. gabapentin 2019-0 Yes [id number] 800mg Take 1 [facility] 800 mg 4-05 [...] injection breakfast and dinner. gabapentin 2019-0 Yes [id number] 800mg Take 1 [facility] 800 mg 4-05 [...] injection breakfast and dinner. gabapentin 2019-0 Yes [id number] 800mg Take 1 [facility] 800 mg 4-05 [...] injection breakfast and dinner. gabapentin 2019-0 Yes [id number] 800mg Take 1 [facility] 800 mg 4-05 [...] injection breakfast and dinner. gabapentin 2019-0 Yes [id number] 800mg Take 1 [facility] 800 mg 4-05 tablet by ity of tablet 00:00: [place] (three) Medical times Branch daily. metFORMIN 2019-0 Yes 1000mg Take 2 [facility] ers 500 mg 4-05 tablets by ity of tablet 00:00: [place] (two) Medical times Branch daily with meals. You can do two pills in the morning and one in the evening. gabapentin 2019-0 Yes [id number] 800mg Take 1 [facility] 800 mg 4-05 tablet by ity of tablet 00:00: [place] (three) Medical times Branch daily. metFORMIN 2019-0 Yes 1000mg Take 2 [facility] ers 500 mg 4-05 tablets by ity of tablet 00:00: [place] (two) Medical times Branch daily with meals. You can do two pills in the morning and one in the evening. gabapentin 2019-0 Yes [id number] 800mg Take 1 [facility] 800 mg 4-05 tablet by ity of tablet 00:00: [place] (three) Medical times Branch daily. metFORMIN 2019-0 Yes 1000mg Take 2 [facility] ers 500 mg 4-05 tablets by ity of tablet 00:00: [place] (two) Medical times Branch daily with meals. You can do two pills in the morning and one in the evening. gabapentin 2019-0 Yes [id number] 800mg Take 1 [facility] 800 mg 4-05 tablet by ity of tablet 00:00: mouth 3 (three) Medical times Branch daily. metFORMIN 2019-0 Yes 1000mg Take 2 [facility] ers 500 mg 4-05 tablets by ity of tablet 00:00: [place] (two) Medical times Branch daily with meals. You can do two pills in the morning and one in the evening. gabapentin 2019-0 Yes [id number] 800mg Take 1 [facility] 800 mg 4-05 tablet by ity of tablet 00:00: [place] (three) Medical times Branch daily. metFORMIN 2019-0 Yes 1000mg Take 2 [facility] ers 500 mg 4-05 tablets by ity of tablet 00:00: [place] (two) Medical times Branch daily with meals. You can do two pills in the morning and one in the evening. gabapentin 2019-0 Yes [id number] 800mg Take 1 [facility] 800 mg 4-05 tablet by ity of tablet 00:00: [place] (three) Medical times Branch daily. metFORMIN 2019-0 Yes 1000mg Take 2 [facility] ers 500 mg 4-05 tablets by ity of tablet 00:00: [place] (two) Medical times Branch daily with meals. You can do two pills in the morning and one in the evening. gabapentin 2019-0 Yes [id number] 800mg Take 1 [facility] 800 mg 4-05 tablet by ity of tablet 00:00: [place] (three) Medical times Branch daily. metFORMIN 2019-0 Yes 1000mg Take 2 [facility] ers 500 mg 4-05 tablets by ity of tablet 00:00: [place] (two) Medical times Branch daily with meals. You can do two pills in the morning and one in the evening. gabapentin 2019-0 Yes [id number] 800mg Take 1 [facility] 800 mg 4-05 tablet by ity of tablet 00:00: [place] (three) Medical times Branch daily. metFORMIN 2019-0 Yes 1000mg Take 2 [facility] ers 500 mg 4-05 tablets by ity of tablet 00:00: [place] (two) Medical times Branch daily with meals. You can do two pills in the morning and one in the evening. gabapentin 2019-0 Yes [id number] 800mg Take 1 [facility] 800 mg 4-05 [...] one in the evening. gabapentin 2019-0 Yes [id number] 800mg Take 1 [facility] 800 mg 4-05 [...] in the evening. gabapentin 2019- 2020- No [id number] 800mg Take 1 [facility] 800 mg 4-05 05-05 tablet by ity of tablet 00:00: 00:00 mouth 3 [place] 00 :00 (three) Medical times Branch daily. gabapentin 2019- 2020- No [id number] 800mg Take 1 [facility] 800 mg 4-05 05-05 tablet by ity of tablet 00:00: 00:00 mouth 3 [place] 00 :00 (three) Medical times Branch daily. gabapentin 2018- 2020- No [id number] 800mg Take 1 [facility] 800 mg 4-05 [...] tablet times Branch daily. Insulin 2018-0 Yes [id number] Use as Uni vers Syringe-Nee 3-30 directed ity of dle U-100 00:00: [place] (INSULIN 00 Medical SYRINGE) 1 Branch mL 30 gauge x 5/16 Syrg Insulin 2018-0 Yes [id number] Use as Uni vers Syringe-Nee 3-30 directed ity of dle U-100 00:00: [place] (INSULIN 00 Medical SYRINGE) 1 Branch mL 30 gauge x 5/16 Syrg Insulin 2018-0 Yes [id number] Use as Uni vers Syringe-Nee 3-30 directed ity of dle U-100 00:00: [place] (INSULIN 00 Medical SYRINGE) 1 Branch mL 30 gauge x 5/16 Syrg Insulin 2018-0 Yes [id number] Use as Uni vers Syringe-Nee 3-30 directed ity of dle U-100 00:00: [place] (INSULIN 00 Medical SYRINGE) 1 Branch mL 30 gauge x 5/16 Syrg Insulin 2018-0 Yes [id number] Use as Uni vers Syringe-Nee 3-30 directed ity of dle U-100 00:00: [place] (INSULIN 00 Medical SYRINGE) 1 Branch mL 30 gauge x 5/16 Syrg Insulin 2017-0 Yes [id number] Use as Uni vers Syringe-Nee 3-30 directed ity of dle U-100 00:00: [place] (INSULIN 00 Medical SYRINGE) 1 Branch mL 30 gauge x 5/16 Syrg Insulin 2017-0 Yes [id number] Use as Uni vers Syringe-Nee 3-30 directed ity of dle U-100 00:00: [place] (INSULIN 00 Medical SYRINGE) 1 Branch mL 30 gauge x 5/16 Syrg Insulin 2017-0 Yes [id number] Use as Uni vers Syringe-Nee 3-30 directed ity of dle U-100 00:00: [place] (INSULIN 00 Medical SYRINGE) 1 Branch mL 30 gauge x 5/16 Syrg Insulin 2017-0 Yes [id number] Use as Uni vers Syringe-Nee 3-30 directed ity of dle U-100 00:00: [place] (INSULIN 00 Medical SYRINGE) 1 Branch mL 30 gauge x 5/16 Syrg Insulin 2017-0 Yes [id number] Use as Uni vers Syringe-Nee 3-30 directed ity of dle U-100 00:00: [place] (INSULIN 00 Medical SYRINGE) 1 Branch mL 30 gauge x 5/16 Syrg Insulin 2018-0 Yes [id number] Use as Uni vers Syringe-Nee 3-30 directed ity of dle U-100 00:00: [place] (INSULIN 00 Medical SYRINGE) 1 Branch mL 30 gauge x 5/16 Syrg Insulin 2018-0 Yes [id number] Use as Uni vers Syringe-Nee 3-30 directed ity of dle U-100 00:00: [place] (INSULIN 00 Medical SYRINGE) 1 Branch mL 30 gauge x 5/16 Syrg Insulin 2018-0 Yes [id number] Use as Uni vers Syringe-Nee 3-30 directed ity of dle U-100 00:00: [place] (INSULIN 00 Medical SYRINGE) 1 Branch mL 30 gauge x 5/16 Syrg Insulin 2018-0 Yes [id number] Use as Uni vers Syringe-Nee 3-30 directed ity of dle U-100 00:00: [place] (INSULIN 00 Medical SYRINGE) 1 Branch mL 30 gauge x 5/16 Syrg Insulin 2018-0 Yes [id number] Use as Uni vers Syringe-Nee 3-30 directed ity of dle U-100 00:00: [place] (INSULIN 00 Medical SYRINGE) 1 Branch mL 30 gauge x 5/16 Syrg Insulin 2018-0 Yes [id number] Use as Uni vers Syringe-Nee 3-30 directed ity of dle U-100 00:00: [place] (INSULIN 00 Medical SYRINGE) 1 Branch mL 30 gauge x 5/16 Syrg Insulin 2017-0 Yes [id number] Use as Uni vers Syringe-Nee 3-30 directed ity of dle U-100 00:00: [place] (INSULIN 00 Medical SYRINGE) 1 Branch mL 30 gauge x 5/16 Syrg Insulin 2017-0 Yes [id number] Use as Uni vers Syringe-Nee 3-30 directed ity of dle U-100 00:00: [place] (INSULIN 00 Medical SYRINGE) 1 Branch mL 30 gauge x 5/16 Syrg Insulin 2018-0 Yes [id number] Use as Uni vers Syringe-Nee 3-30 directed ity of dle U-100 00:00: [place] (INSULIN 00 Medical SYRINGE) 1 Branch mL 30 gauge x 5/16 Syrg Insulin 2018-0 Yes [id number] Use as Uni vers Syringe-Nee 3-30 directed ity of dle U-100 00:00: [place] (INSULIN 00 Medical SYRINGE) 1 Branch mL 30 gauge x 5/16 Syrg Insulin 2018-0 Yes [id number] Use as Uni vers Syringe-Nee 3-30 directed ity of dle U-100 00:00: [place] (INSULIN 00 Medical SYRINGE) 1 Branch mL 30 gauge x 5/16 Syrg Insulin 2018-0 Yes [id number] Use as Uni vers Syringe-Nee 3-30 directed ity of dle U-100 00:00: [place] (INSULIN 00 Medical SYRINGE) 1 Branch mL 30 gauge x 5/16 Syrg Insulin 2018-0 Yes [id number] Use as Uni vers Syringe-Nee 3-30 directed ity of dle U-100 00:00: [place] (INSULIN 00 Medical SYRINGE) 1 Branch mL 30 gauge x 5/16 Syrg Insulin 2018-0 Yes [id number] Use as Uni vers Syringe-Nee 3-30 directed ity of dle U-100 00:00: [place] (INSULIN 00 Medical SYRINGE) 1 Branch mL 30 gauge x 5/16 Syrg Insulin 2018-0 Yes [id number] Use as Uni vers Syringe-Nee 3-30 directed ity of dle U-100 00:00: [place] (INSULIN 00 Medical SYRINGE) 1 Branch mL 30 gauge x 5/16 Syrg Insulin 2018-0 Yes [id number] Use as Uni vers Syringe-Nee 3-30 directed ity of dle U-100 00:00: [place] (INSULIN 00 Medical SYRINGE) 1 Branch mL 30 gauge x 5/16 Syrg Insulin 2017-0 Yes [id number] Use as Uni vers Syringe-Nee 3-30 directed ity of dle U-100 00:00: [place] (INSULIN 00 Medical SYRINGE) 1 Branch mL 30 gauge x 5/16 Syrg Insulin 2018-0 Yes [id number] Use as Uni vers Syringe-Nee 3-30 directed ity of dle U-100 00:00: [place] (INSULIN 00 Medical SYRINGE) 1 Branch mL 30 gauge x 5/16 Syrg Insulin 2018-0 Yes [id number] Use as Uni vers Syringe-Nee 3-30 directed ity of dle U-100 00:00: [place] (INSULIN 00 Medical SYRINGE) 1 Branch mL 30 gauge x 5/16 Syrg Insulin 2018-0 Yes [id number] Use as Uni vers Syringe-Nee 3-30 directed ity of dle U-100 00:00: [place] (INSULIN 00 Medical SYRINGE) 1 Branch mL 30 gauge x 5/16 Syrg Insulin 2018-0 Yes [id number] Use as Uni vers Syringe-Nee 3-30 directed ity of dle U-100 00:00: [place] (INSULIN 00 Medical SYRINGE) 1 Branch mL 30 gauge x 5/16 Syrg Insulin 2018-0 Yes [id number] Use as Uni vers Syringe-Nee 3-30 directed ity of dle U-100 00:00: [place] (INSULIN 00 Medical SYRINGE) 1 Branch mL 30 gauge x 5/16 Syrg Insulin 2018-0 Yes [id number] Use as Uni vers Syringe-Nee 3-30 directed ity of dle U-100 00:00: (INSULIN 00 Medical SYRINGE) 1 Branch mL 30 gauge x 5/16 Syrg Insulin Yes [id number] Use as Uni vers Syringe-Nee 3-30 directed ity of dle U-100 00:00: (INSULIN 00 Medical SYRINGE) 1 Branch mL 30 gauge x 5/16 Syrg Insulin 2020- No [id number] Use as Un [place] Syringe-Nee 330 01-09 directed ity of dle U-100 00:00: 00:00 (INSULIN 00 :00 Medical SYRINGE) 1 Branch mL 30 gauge x 5/16 Syrg Insulin 2020- No [id number] Use as Un cali Syringe-Nee 330 01-09 directed ity of dle U-100 00:00: 00:00 [place] (INSULIN 00 :00 Medical SYRINGE) 1 Branch mL 30 gauge x 5/16 Syrg Atorvastati Atorvastati Yes [place] [address] [facility] Calcium n Cal[facility] Lexapro Lexapro Yes [place] [address] [facility] Metoprolol Metoprolol Yes [...] [facility] Duloxetine Duloxetine Yes [place] [address] [facility] HCl HCl [facility] Commerce Commerce Yes [place] [address] [facility] [...] Completed Unive rsity of PFIZER VACCINE 00:00:00 [facility] SARS-COV-2 COVID-19 2021-01-17 Completed Unive rsity of PFIZER VACCINE 00:00:00 [facility] SARS-COV-2 COVID-19 2021-01-17 Completed Unive rsity of PFIZER VACCINE 00:00:00 [facility] SARS-COV-2 COVID-19 2021-01-17 Completed Unive rsity of PFIZER VACCINE 00:00:00 [facility] SARS-COV-2 COVID-19 2021-01-17 Completed Unive rsity of PFIZER VACCINE 00:00:00 [facility] SARS-COV-2 COVID-19 2021-01-17 Completed Unive rsity of PFIZER VACCINE 00:00:00 [facility] SARS-COV-2 COVID-19 2021-01-17 Completed Unive rsity of PFIZER VACCINE 00:00:00 [facility] Vital Signs Vital Name Observation Time Observation Value Comments Source Systolic blood 2021-02-12 19:25:00 123 mm[Hg] Univer sity of pressure [place] [facility] Diastolic blood 2021-02-12 19:25:00 80 mm[Hg] Unive rsity of pressure [facility] Heart rate 2021-02-12 19:25:00 87 /min [facility] [place] [facility] [place] Body temperature 2021-02-12 19:25:00 36.83 [place] [facility] ers[facility] of [facility] Respiratory rate 2021-02-12 19:25:00 16 /min Univ ersity of [facility] Body height 2021-02-12 19:25:00 162.6 cm [facility] Body weight 2021-02-12 19:25:00 64.864 kg [facility] BMI 2021-02-12 19:25:00 24.55 kg/m2 [facility] Oxygen saturation in 2021-02-12 19:25:00 99 /min [facility] Arterial blood by [facility] Pulse oximetry Branch Systolic blood 2021-02-12 18:15:00 108 mm[Hg] Univer sity of pressure [facility] Diastolic blood 2021-02-12 18:15:00 73 mm[Hg] Unive rsity of pressure [facility] Heart rate 2021-02-12 18:15:00 59 /min [facility] Respiratory rate 2021-02-12 18:15:00 18 /min Univ ersity of [facility] Body height 2021-02-12 18:15:00 162.6 cm [facility] Body weight 2021-02-12 18:15:00 64.864 kg [facility] BMI 2021-02-12 18:15:00 24.55 kg/m2 [facility] Systolic blood 2021-01-17 17:22:00 129 mm[Hg] [facility] Diastolic blood 2021-01-17 17:22:00 83 mm[Hg] [facility] Heart rate 2021-01-17 17:22:00 85 /min [facility] Body temperature 2021-01-17 17:22:00 36.06 Lucero [facility] Respiratory rate 2021-01-17 17:22:00 16 /min [facility] Oxygen saturation in 2021-01-17 17:22:00 95 /min [facility] Arterial blood by [facility] Pulse oximetry Branch Body height 2021-01-15 21:03:00 162.6 cm [facility] Body weight 2021-01-15 21:03:00 62.46 kg [facility] BMI 2021-01-15 21:03:00 23.64 kg/m2 [facility] Systolic blood 2021-01-15 19:31:00 109 mm[Hg] [facility] Diastolic blood 2021-01-15 19:31:00 71 mm[Hg] [facility] Heart rate 2021-01-15 19:31:00 88 /min [facility] Respiratory rate 2021-01-15 19:31:00 19 /min [facility] Body height 2021-01-15 19:31:00 162.6 cm [facility] Body weight 2021-01-15 19:31:00 62.143 kg [facility] BMI 2021-01-15 19:31:00 23.52 kg/m2 [facility] Oxygen saturation in 2021-01-15 19:31:00 93 /min [facility] blood by [facility] Pulse oximetry Branch Systolic blood 2021-01-01 16:37:00 118 mm[Hg] [facility] Diastolic blood 2021-01-01 16:37:00 77 mm[Hg] [facility] Heart rate 2021-01-01 16:37:00 102 /min [facility] Body weight 2021-01-01 16:37:00 61.689 kg [facility] BMI 2021-01-01 16:37:00 23.34 kg/m2 [facility] Oxygen saturation in 2021-01-01 16:37:00 100 /min [facility] Arterial blood by [facility] Pulse oximetry Branch Systolic blood 2020-12-01 15:53:00 123 mm[Hg] [facility] Diastolic blood 2020-12-01 15:53:00 69 mm[Hg] [facility] Heart rate 2020-12-01 15:53:00 90 /min [facility] Body temperature 2020-12-01 15:53:00 36.22 Lucero [facility] Respiratory rate 2020-12-01 15:53:00 16 /min [facility] Oxygen saturation in 2020-12-01 15:53:00 97 /min [facility] Arterial blood by [facility] Pulse oximetry Branch Body height 2020-11-30 14:35:00 162.6 cm [facility] Body weight 2020-11-30 14:35:00 64.411 kg [facility] BMI 2020-11-30 14:35:00 24.37 kg/m2 [facility] Systolic blood 2020-11-13 20:00:00 115 mm[Hg] [facility] Diastolic blood 2020-11-13 20:00:00 77 mm[Hg] [facility] Heart rate 2020-11-13 20:00:00 82 /min [facility] Respiratory rate 2020-11-13 20:00:00 16 /min [facility] Body height 2020-11-13 20:00:00 162.6 cm [facility] Body weight 2020-11-13 20:00:00 64.728 kg [facility] BMI 2020-11-13 20:00:00 24.49 kg/m2 [facility] Oxygen saturation in 2020-11-13 20:00:00 94 /min [facility] blood by [facility] Pulse oximetry Branch Systolic blood 2020-10-07 19:37:00 118 mm[Hg] [facility] Diastolic blood 2020-10-07 19:37:00 80 mm[Hg] [facility] Heart rate 2020-10-07 19:37:00 95 /min [facility] Body weight 2020-10-07 19:37:00 59.875 kg [facility] BMI 2020-10-07 19:37:00 22.65 kg/m2 [facility] Oxygen saturation in 2020-10-07 19:37:00 97 /min [facility] Arterial blood by [facility] Pulse oximetry Branch Heart rate 2020-10-01 20:20:00 60 /min [facility] Systolic blood 2020-10-01 20:20:00 120 mm[Hg] [facility] Diastolic blood 2020-10-01 20:20:00 80 mm[Hg] [facility] Heart rate 2020-10-01 20:20:00 60 /min [facility] Systolic blood 2020-10-01 20:20:00 120 mm[Hg] [facility] Diastolic blood 2020-10-01 20:20:00 80 mm[Hg] [facility] Heart rate 2020-10-01 20:20:00 60 /min [facility] Systolic blood 2020-10-01 20:20:00 120 mm[Hg] [facility] Diastolic blood 2020-10-01 20:20:00 80 mm[Hg] [facility] Heart rate 2020-10-01 20:20:00 60 /min [facility] Systolic blood 2020-10-01 20:20:00 120 mm[Hg] [facility] Diastolic blood 2020-10-01 20:20:00 80 mm[Hg] [facility] Heart rate 2020-10-01 20:20:00 60 /min [facility] Systolic blood 2020-10-01 20:20:00 120 mm[Hg] [facility] Diastolic blood 2020-10-01 20:20:00 80 mm[Hg] [facility] Heart rate 2020-10-01 20:20:00 60 /min [facility] Systolic blood 2020-10-01 20:20:00 120 mm[Hg] [facility] Diastolic blood 2020-10-01 20:20:00 80 mm[Hg] [facility] Systolic blood 2020-09-07 20:47:00 104 mm[Hg] [facility] Diastolic blood 2020-09-07 20:47:00 62 mm[Hg] [facility] Heart rate 2020-09-07 20:47:00 88 /min [facility] Body temperature 2020-09-07 20:47:00 36.17 Lucero Univ ersity of [facility] Respiratory rate 2020-09-07 20:47:00 18 /min Univ ersity of [facility] Oxygen saturation in 2020-09-07 20:47:00 99 /min [facility] Arterial blood by [facility] Pulse oximetry Branch Body height 2020-09-05 07:40:00 162.6 cm [facility] Body weight 2020-09-05 07:40:00 60.737 kg [facility] BMI 2020-09-05 07:40:00 22.97 kg/m2 [facility] Systolic blood 2020-09-04 21:15:00 130 mm[Hg] [facility] Diastolic blood 2020-09-04 21:15:00 83 mm[Hg] [facility] Heart rate 2020-09-04 21:15:00 85 /min [facility] Respiratory rate 2020-09-04 21:15:00 19 /min [facility] Body height 2020-09-04 21:15:00 162.6 cm [facility] Body weight 2020-09-04 21:15:00 65.318 kg [facility] BMI 2020-09-04 21:15:00 24.72 kg/m2 [facility] Systolic blood 2020-05-08 19:29:00 128 mm[Hg] [facility] Diastolic blood 2020-05-08 19:29:00 80 mm[Hg] [facility] Heart rate 2020-05-08 19:29:00 82 /min [facility] Body temperature 2020-05-08 19:29:00 36.39 Lucero [facility] Body height 2020-05-08 19:29:00 162.6 cm [facility] Body weight 2020-05-08 19:29:00 68.04 kg [facility] BMI 2020-05-08 19:29:00 25.75 kg/m2 [facility] Systolic blood 2020-04-03 19:48:00 104 mm[Hg] [facility] Diastolic blood 2020-04-03 19:48:00 66 mm[Hg] [facility]ive [facility] Heart rate 2020-04-03 19:48:00 81 /min [facility] Body temperature 2020-04-03 19:48:00 36.72 Lucero [facility] Respiratory rate 2020-04-03 19:48:00 18 /min [facility] Body height 2020-04-03 19:48:00 162.6 cm [facility] Body weight 2020-04-03 19:48:00 69.4 kg [facility] BMI 2020-04-03 19:48:00 26.26 kg/m2 [facility] Systolic blood 2020-01-10 21:55:00 126 mm[Hg] [facility] Diastolic blood 2020-01-10 21:55:00 84 mm[Hg] [facility]ive rsity of [facility] Heart rate 2020-01-10 21:55:00 93 /min [facility] Respiratory rate 2020-01-10 21:55:00 16 /min [facility] Body height 2020-01-10 21:55:00 162.6 cm [facility] Body weight 2020-01-10 21:55:00 72.303 kg [facility] BMI 2020-01-10 21:55:00 27.36 kg/m2 [facility] Systolic blood 2019-10-11 20:16:00 124 mm[Hg] [facility] Diastolic blood 2019-10-11 20:16:00 77 mm[Hg] [facility]ive [facility] Heart rate 2019-10-11 20:16:00 92 /min [facility] Body temperature 2019-10-11 20:16:00 36.89 Lucero Univ ersity of [facility] Respiratory rate 2019-10-11 20:16:00 18 /min Univ ersity of [facility] Body height 2019-10-11 20:16:00 162.6 cm [facility] Body weight 2019-10-11 20:16:00 80.74 kg [facility] BMI 2019-10-11 20:16:00 30.55 kg/m2 [facility] Heart rate 2019-08-16 16:31:00 90 /min [facility]i [facility] of [facility] Respiratory rate 2019-08-16 16:31:00 18 /min Univ ersity of [facility] Oxygen saturation in 2019-08-16 16:31:00 97 /min [facility] Arterial blood by [facility] Pulse oximetry Branch Systolic blood 2019-08-16 16:17:00 110 mm[Hg] Univer sity of pressure [facility] Diastolic blood 2019-08-16 16:17:00 58 mm[Hg] Unive rsity of pressure [facility] Body temperature 2019-08-16 16:17:00 36 Lucero Univ ersity of [facility] Body weight 2019-08-16 08:21:00 79.833 kg [facility] BMI 2019-08-16 08:21:00 30.21 kg/m2 [facility] Body height 2019-08-15 13:32:00 162.6 cm [facility] Systolic blood 2019-08-05 16:11:00 145 mm[Hg] Univer sity of pressure [facility] Diastolic blood 2019-08-05 16:11:00 88 mm[Hg] Unive rsity of pressure [facility] Heart rate 2019-08-05 16:11:00 92 /min [facility] Respiratory rate 2019-08-05 16:11:00 19 /min Univ ersity of [facility] Body height 2019-08-05 16:11:00 162.6 cm [facility] Body weight 2019-08-05 16:11:00 80.513 kg Universi ty [facility] BMI 2019-08-05 16:11:00 30.47 kg/m2 Universi ty [facility] Oxygen saturation in 2019-08-05 16:11:00 99 /min [facility] Arterial blood by [facility] Pulse oximetry Branch Systolic blood 2019-02-04 15:08:00 117 mm[Hg] Univer sity of pressure [facility] Diastolic blood 2019-02-04 15:08:00 83 mm[Hg] Unive rsity of pressure [facility] Heart rate 2019-02-04 15:08:00 80 /min [facility] Respiratory rate 2019-02-04 15:08:00 20 /min [facility] 2019-02-04 15:08:00 162.6 cm Universi [facility] Oxygen saturation in 2019-02-04 15:08:00 99 /min [facility] Arterial blood by [facility] Pulse oximetry Branch Systolic blood 2019-01-04 19:51:00 124 mm[Hg] Univer sity of pressure [facility] Diastolic blood 2019-01-04 19:51:00 83 mm[Hg] Unive rsity of pressure [facility] Heart rate 2019-01-04 19:51:00 79 /min Universi ty [facility] Respiratory rate 2019-01-04 19:51:00 16 /min [facility] 2019-01-04 19:51:00 162.6 cm [facility] Body weight 2019-01-04 19:51:00 76.204 kg [facility] BMI 2019-01-04 19:51:00 28.84 kg/m2 [facility] Procedures Procedure Date / Time Performing Clinician Source Performed EXTERNAL PROVIDER RECORDS 2021-05-13 06:01:00 Doctor Unassigned, [facility] POCT GLUCOSE (AUTOMATED) 2021-02-12 21:28:00 Fabby Nieves [facility] BASIC METABOLIC PANEL (NA, 2021-02-12 20:36:00 Fabby Nieves [facility] K, CL, CO2, GLUCOSE, BUN, Medica l Branch CREATININE, [place]) CBC WITH DIFF 2021-02-12 20:36:00 Fabby Nieves [facility] URINALYSIS 2021-02-12 20:36:00 Fabby Nieves [facility] POCT GLUCOSE (AUTOMATED) 2021-02-12 19:33:00 Doctor Unassigned, [facility] CONSENT/REFUSAL FOR 2021-02-12 19:10:35 Doctor Unassigned, [facility] DIAGNOSIS AND TREATMENT [facility] POCT GLUCOSE (AUTOMATED) 2021-01-17 17:24:00 Celso Duran [facility] POCT GLUCOSE (AUTOMATED) 2021-01-17 12:38:00 Celso Duran [facility] BASIC METABOLIC PANEL (NA, 2021-01-17 09:06:00 Priyanka Haney [facility] K, CL, CO2, GLUCOSE, BUN, Medica l Branch CREATININE, CA) CBC WITH DIFF 2021-01-17 09:06:00 Priyanka Haney [facility] POCT GLUCOSE (AUTOMATED) 2021-01-16 21:11:00 Celso Duran [facility] POCT GLUCOSE (AUTOMATED) 2021-01-16 16:41:00 Celso Duran [facility] POCT GLUCOSE (AUTOMATED) 2021-01-16 12:48:00 Celso Duran [facility] CBC WITH DIFF 2021-01-16 08:25:00 Priyanka Haney [facility] POCT GLUCOSE (AUTOMATED) 2021-01-16 08:24:00 Celso Duran [facility] MAGNESIUM 2021-01-16 08:17:00 Priyanka Haney [facility] BASIC METABOLIC PANEL (NA, 2021-01-16 08:17:00 Priyanka Haney [facility] K, CL, CO2, GLUCOSE, BUN, Medica l Branch CREATININE, [place]) LIPID PANEL ([id number])(TOTAL 2021-01-16 08:17:00 Priyanka Haney [facility] CHOLESTEROL, Medical Branch TRIGLYCERIDES, HDL) LOW-DENSITY LIPOPROTEIN, 2021-01-16 08:17:00 Priyanka Haney [facility] DIRECT [facility] POCT GLUCOSE (AUTOMATED) 2021-01-16 03:51:00 Celso Duran [facility] URINE CULTURE 2021-01-16 01:56:00 Priyanka Haney [facility] POCT GLUCOSE (AUTOMATED) 2021-01-16 01:06:00 Celso Duran [facility] URINALYSIS 2021-01-15 23:47:00 Priyanka Haney [facility] BLOOD CULTURE SCREEN 2021-01-15 23:39:00 Priyanka Haney [facility] PHOSPHORUS 2021-01-15 23:30:00 Lyndon Priyanka Fauzia [facility] TROPONIN I 2021-01-15 23:30:00 Lyndon Priyanka Fauzia [facility] THYROID STIMULATING 2021-01-15 23:30:00 Priyanka Haney [facility] HORMONE [facility] HEPATIC FUNCTION PANEL 2021-01-15 23:30:00 Priyanka Haney [facility] ([id number]) (ALB,T.PRO,BILI Medical Branch T,BU/BC,ALT,AST,ALK PHOS) GLYCOSYLATED HEMOGLOBIN 2021-01-15 23:30:00 Priyanka Haney [facility] (A1C) [facility] BLOOD CULTURE SCREEN 2021-01-15 23:27:00 Priyanka Haney [facility] POCT GLUCOSE (AUTOMATED) 2021-01-15 22:30:00 Celso Duran [facility] COVID-19 (ID NOW RAPID 2021-01-15 20:44:00 Priyanka Haney [facility] TESTING) Medical Branch LAB ONLY COVID 2021-01-15 20:44:00 Priyanka Haney [facility] INTERPRETATION [facility] NOTICE OF PRIVACY 2021-01-15 20:25:44 Doctor Unassigned, [facility] PRACTICES [facility] CONSENT/REFUSAL FOR 2021-01-15 20:25:23 Doctor Unassigned, [facility] DIAGNOSIS AND TREATMENT [facility] ASSIGNMENT OF BENEFITS 2021-01-15 20:24:58 Doctor Unassigned, [facility] POCT HEMOGLOBIN A1C TEST 2021-01-01 16:39:00 Anatoly Villegas [facility] POCT GLUCOSE (AUTOMATED) 2020-12-01 17:39:00 [facility] 2020-12-01 10:29:00 Vish [facility] BASIC METABOLIC PANEL (NA, 2020-12-01 10:29:00 Anatoly Wahl [facility] K, CL, CO2, GLUCOSE, BUN, Medica l Branch CREATININE, CA) CBC WITH DIFF 2020-12-01 10:29:00 Vish [facility] POCT GLUCOSE (AUTOMATED) 2020-12-01 02:29:00 [facility] THRMPLAS 2020-12-01 00:50:00 Miguel Luo [facility] POCT GLUCOSE (AUTOMATED) 2020-11-30 23:07:00 [facility] PO[facility] ACT LOW RANGE 2020-11-30 22:17:00 Gregory [facility] POCT ACT LOW RANGE 2020-11-30 21:55:00 Gregory [facility] BASIC METABOLIC PANEL (NA, 2020-11-30 14:26:00 Lily Jenkins [facility] K, CL, CO2, GLUCOSE, BUN, Medica l Branch CREATININE, CA) COVID-19 (ID NOW RAPID 2020-11-30 13:21:00 Brown Woodward [facility] TESTING) Medical Branch LAB ONLY COVID 2020-11-30 13:21:00 Brown Woodward [facility] INTERPRETATION [facility] POCT GLUCOSE(AGE >30DAYS) 2020-10-07 19:39:00 Lakshmi [facility] POCT GLUCOSE (AUTOMATED) 2020-09-07 22:28:00 Jay England [facility] POCT GLUCOSE (AUTOMATED) 2020-09-07 20:47:00 Jay [facility] POCT GLUCOSE (AUTOMATED) 2020-09-07 20:12:00 Jay England [facility] POCT GLUCOSE (AUTOMATED) 2020-09-07 16:43:00 Jay [facility] CAROTID DUPLEX BILATERAL - 2020-09-07 15:09:10 Lily Jenkins [facility] BY VASCULAR LAB [facility] POCT GLUCOSE (AUTOMATED) 2020-09-07 12:50:00 Jay England [facility] COMP. METABOLIC PANEL 2020-09-07 09:28:00 Elyse Aparicio [facility] ([id number]) [facility] CBC WITH DIFF 2020-09-07 09:28:00 Jay England [facility] POCT GLUCOSE (AUTOMATED) 2020-09-07 01:42:00 Jay England [facility] CORTISOL STIMULATION 60 2020-09-06 23:08:00 Jay England [facility] CORTISOL STIMULATION 30 2020-09-06 22:36:00 Jay England [facility] CORTISOL STIMULATION 0 MIN 2020-09-06 22:05:00 Jay England [facility] POCT GLUCOSE (AUTOMATED) 2020-09-06 21:04:00 Jay England [facility] POCT GLUCOSE (AUTOMATED) 2020-09-06 19:57:00 Jay England [facility] POCT GLUCOSE (AUTOMATED) 2020-09-06 16:40:00 Jay England [facility] POCT GLUCOSE (AUTOMATED) 2020-09-06 12:45:00 [facility] 2020-09-06 11:16:00 Jay England [facility] MAGNESIUM 2020-09-06 11:16:00 Alessandra [facility] CORTISOL AM 2020-09-06 11:16:00 Alessandra [facility] COMP. METABOLIC PANEL 2020-09-06 11:16:00 Elyse Aparicio [facility] ([id number]) Medical Branch CBC WITH DIFF 2020-09-06 11:16:00 Alessandra jonas [facility] N-TERMINAL PRO-BNP 2020-09-06 11:16:00 Alessandra jonas [facility] POCT GLUCOSE (AUTOMATED) 2020-09-06 01:07:00 [facility]astasia [facility] TROPONIN I 2020-09-06 00:13:00 Alessandra jonas [facility] SEDIMENTATION RATE 2020-09-06 00:13:00 Jay England [facility] POCT GLUCOSE (AUTOMATED) 2020-09-05 21:44:00 [facility] 2020-09-05 16:54:00 [facility]SE (AUTOMATED) 2020-09-05 13:47:00 [facility]BDOM[facility] PELVIS WO 2020-09-05 11:16:59 Elyse Aparicio [facility] CONTRAST [facility] CREATINE KINASE 2020-09-05 10:01:00 Alessandra jonas [facility] MAGNESIUM 2020-09-05 10:01:00 Alessandra jonas [facility] VITAMIN B12, LEVEL 2020-09-05 10:01:00 Elyse Aparicio [facility] TROPONIN I 2020-09-05 10:01:00 Alessandra jonas [facility] COMP. METABOLIC PANEL 2020-09-05 10:01:00 Elyse Aparicio [facility] ([id number]) [facility] LIPID PANEL ([id number])(TOTAL 2020-09-05 10:01:00 Jay England [facility] CHOLESTEROL, [facility] TRIGLYCERIDES, HDL) CBC WITH DIFF 2020-09-05 10:01:00 Alessandra [facility] GLYCOSYLATED HEMOGLOBIN 2020-09-05 10:01:00 Alessandra [facility] (A1C) [facility] PROTHROMBIN TIME / INR 2020-09-05 10:01:00 Alessandra jonas [facility] N-TERMINAL PRO-BNP 2020-09-05 10:01:00 Alessandra jonas [facility] VITAMIN D, 25-OH 2020-09-05 10:01:00 Alessandra [facility] PROCALCITONIN 2020-09-05 10:01:00 Alessandra [facility] URINE CULTURE 2020-09-05 05:12:00 Anastasia Giraldo [facility] COVID-19 (ID NOW RAPID 2020-09-05 05:12:00 Anastasia Giraldo [facility] TESTING) [facility] POCT GLUCOSE (AUTOMATED) 2020-09-05 04:24:00 [facility]astasia [facility] BLOOD 2020-09-05 02:29:00 [facility] PHOSPHORUS 2020-09-05 02:22:00 Alessandra jonas [facility] LIPASE 2020-09-05 02:22:00 Anastasia Giraldo [facility] MAGNESIUM 2020-09-05 02:22:00 Alessandra jonas [facility] TROPONIN I 2020-09-05 02:22:00 Anastasia Giraldo [facility] THYROID STIMULATING 2020-09-05 02:22:00 Elyse Aparicio [facility] HORMONE [facility] COMP. METABOLIC PANEL 2020-09-05 02:22:00 Anastasia Giraldo [facility] ([id number]) [facility] CBC WITH DIFF 2020-09-05 02:22:00 Anastasia Giraldo [facility] URINALYSIS 2020-09-05 02:22:00 Anastasia Giraldo [facility] N-TERMINAL PRO-BNP 2020-09-05 02:22:00 Anastasia Giraldo [facility] POCT GLUCOSE (AUTOMATED) 2020-09-05 01:56:00 Doctor Juan Manuel, [facility] Name [facility] [place] NOTICE OF PRIVACY 2020-09-05 01:52:18 Doctor Juan Manuel, [facility] PRACTICES [facility] CONSENT/REFUSAL FOR 2020-09-05 01:51:48 Doctor Juan Manuel [facility] DIAGNOSIS AND TREATMENT [facility] CONSENT/REFUSAL FOR 2020-09-04 22:21:52 Doctor Juan Manuel, [facility] DIAGNOSIS AND TREATMENT [facility] POCT HEMOGLOBIN A1C TEST 2020-09-04 00:00:00 Anatoly Villegas [facility] EXTERNAL PROVIDER RECORDS 2020-08-03 06:01:00 Doctor Juan Manuel, [facility] XR LUMBAR SPINE 4 VW 2020-05-08 21:19:59 Rashad Costa [facility] XR HIPS 2 VW LEFT 2020-05-08 21:19:59 Rashad Costa [facility] ASSIGNMENT OF BENEFITS 2020-05-08 20:39:58 Doctor Juan Manuel, [facility] URINE CULTURE 2020-04-03 20:18:00 Adum, Sisi Montero [place] o f [facility] GC & CHLAMYDIA AMPLIFIED 2020-04-03 20:18:00 Adum, Sisi Montero [facility] GALV ONLY - VAGINAL 2020-04-03 20:18:00 Adum, Sisi Montero [facility] PATHOGENS BY NUCLEIC ACID Medica [facility] TESTING TRICHOMONAS AMPLIFIED 2020-04-03 20:18:00 Adum, Sisi Montero [facility] POCT URINALYSIS W/O 2020-04-03 00:00:00 Adum, Sisi Montero [facility] SPECIFIC GRAVITY [facility] POCT HEMOGLOBIN A1C TEST 2020-01-10 00:00:00 Anatoly Villegas [facility] HOSPITAL ADMISSION MISC - 2019-12-10 05:01:00 Doctor Juan Manuel, [facility] MEDICARE PATIENTS RIGHTS [facility] IMPORTANT MESSAGE BI SCREENING MAMMOGRAM 2019-11-01 17:35:15 Ernst Weeks [facility] BILATERAL Medical Branch CONSENT/REFUSAL FOR 2019-11-01 16:33:32 Doctor Unassigned, [facility] DIAGNOSIS AND TREATMENT [facility] ASSIGNMENT OF BENEFITS 2019-11-01 16:33:15 Doctor Unassmarcela[facility] IMMTRAC2 CONSENT 2019-10-11 05:01:00 Doctor Unassmarcela, [facility] AGREEMENTS AUTHORIZATIONS 2019-08-30 05:01:00 Doctor Unassigned, [facility] AND IRREVOCABLE [facility] [place] ASSIGNMENTS (FORM 2001) POCT GLUCOSE (AUTOMATED) 2019-08-16 13:02:00 [facility]is [facility] 2019-08-16 09:53:00 Génesis Romano Uni versity [facility] MAGNESIUM 2019-08-16 09:52:00 Izaiah Miles [place] [facility] BASIC METABOLIC PANEL (NA, 2019-08-16 09:52:00 Izaiah Miles [facility] K, CL, CO2, GLUCOSE, BUN, Medica l Branch CREATININE, CA) CBC WITH DIFFERENTIAL 2019-08-16 09:52:00 Izaiah Miles [facility] POCT GLUCOSE (AUTOMATED) 2019-08-16 07:10:00 Génesis Romano Uni versity [facility] POCT GLUCOSE (AUTOMATED) 2019-08-16 05:02:00 Génesis Romano Uni versity [facility] CT HEAD WO CONTRAST 2019-08-16 00:49:18 Shanta Spring [facility] POCT GLUCOSE (AUTOMATED) 2019-08-15 22:14:00 Génesis Romano Uni versity of [facility] POCT GLUCOSE (AUTOMATED) 2019-08-15 20:40:00 Génesis Romano Uni versity of [facility] ACTIVATED PARTIAL THRMPLAS 2019-08-15 20:35:00 Izaiah Miles [facility] POCT GLUCOSE (AUTOMATED) 2019-08-15 16:53:00 Génesis Romano Uni versity [facility] POCT ACT LOW RANGE 2019-08-15 15:35:00 Génesis Romano [facility] POCT ACT LOW RANGE 2019-08-15 15:14:00 Génesis Romano [facility] POCT ACT LOW RANGE 2019-08-15 14:37:00 Génesis Romano [facility] POCT ACT LOW RANGE 2019-08-15 14:20:00 Génesis Romano [facility] MAGNESIUM 2019-08-15 09:53:00 Izaiah Miles [place] o [facility] BASIC METABOLIC PANEL (NA, 2019-08-15 09:53:00 Izaiah Miles [facility] K, CL, CO2, GLUCOSE, BUN, Medica l Branch CREATININE, CA) CBC WITH DIFFERENTIAL 2019-08-15 09:53:00 Izaiah Miles [facility] ACTIVATED PARTIAL THRMPLAS 2019-08-15 09:53:00 Shanta Spring niversyue of [facility] POCT GLUCOSE (AUTOMATED) 2019-08-15 09:47:00 Génesis Romano Uni versity of [facility] POCT GLUCOSE (AUTOMATED) 2019-08-15 06:33:00 Génesis Romano Uni versity of [facility] POCT GLUCOSE (AUTOMATED) 2019-08-15 03:08:00 [facility]nesis Romano [facility] BASIC METABOLIC PANEL (NA, 2019-08-15 01:48:00 Izaiah Miles [facility] K, CL, CO2, GLUCOSE, BUN, Medica l Branch CREATININE, CA) ACTIVATED PARTIAL THRMPLAS 2019-08-15 01:48:00 Shanta Springersyue of [facility] POCT GLUCOSE (AUTOMATED) 2019-08-15 01:46:00 Génesis Romano Uni versity of [facility] POCT GLUCOSE (AUTOMATED) 2019-08-14 22:29:00 Bandar Romanomad Uni versity of [facility] POCT GLUCOSE (AUTOMATED) 2019-08-14 20:42:00 Génesis Romano Uni versity of [facility] ACTIVATED PARTIAL THRMPLAS 2019-08-14 19:14:00 Abrol, Robinder U [facility] POCT GLUCOSE (AUTOMATED) 2019-08-14 16:43:00 Génesis Romano [facility] ECHO ROUTINE W/DOPPLER 2019-08-14 14:10:31 Izaiah Miles [facility] POCT GLUCOSE (AUTOMATED) 2019-08-14 13:50:00 Génesis Romano [facility] GALV ONLY - INFLUENZA A B 2019-08-14 13:42:00 [facility] EKG-12 LEAD 2019-08-14 13:11:24 Juan Antonio Capps [facility] ACTIVATED PARTIAL THRMPLAS 2019-08-14 10:04:00 Sh[facility] MAGNESIUM 2019-08-14 10:03:00 Izaiah Miles [facility] BASIC METABOLIC PANEL (NA, 2019-08-14 10:03:00 Izaiah Miles [facility] K, CL, CO2, GLUCOSE, BUN, Medica l Branch CREATININE, CA) CBC WITH DIFFERENTIAL 2019-08-14 10:03:00 Izaiah Miles [facility] POCT GLUCOSE (AUTOMATED) 2019-08-14 01:18:00 Génesis Romano [facility] POCT GLUCOSE (AUTOMATED) 2019-08-13 23:08:00 Génesis Romano [facility] ACTIVATED PARTIAL THRMPLAS 2019-08-13 22:43:00 Shanta [facility] POCT GLUCOSE (AUTOMATED) 2019-08-13 19:28:00 Génesis Romano [facility] CORONARY ANGIOGRAPHY 2019-08-13 16:40:26 Doctor Unassigned, [facility] Branch TROPONIN I 2019-08-13 13:14:00 Saw [facility] POCT GLUCOSE (AUTOMATED) 2019-08-13 13:12:00 Génesis Romano [facility] XR CHEST 1 VW 2019-08-13 08:08:00 [facility] 2019-08-13 05:24:00 Wen Graf [facility] TROPONIN I 2019-08-13 05:24:00 Saw [facility] BASIC METABOLIC PANEL (NA, 2019-08-13 05:24:00 Shanta Spring [facility] K, CL, CO2, GLUCOSE, BUN, Medica l Branch CREATININE, CA) CBC WITH DIFFERENTIAL 2019-08-13 05:24:00 Izaiah Miles [facility] GLYCOSYLATED HEMOGLOBIN 2019-08-13 05:24:00 [facility] PROTHROMBIN TIME / INR 2019-08-13 05:24:00 Shanta Spring [facility] ACTIVATED PARTIAL THRMPLAS 2019-08-13 05:24:00 Shanta Spring [facility] SAGE [facility] N-TERMINAL PRO-BNP 2019-08-13 05:24:00 [facility] 2019-08-13 04:39:22 Génesis Romano [facility] EXTERNAL PROVIDER - ADC 2019-08-05 05:01:00 Doctor Juan Manuel, [facility] CARDIOLOGY [facility] NOTICE OF BILLING 2019-02-04 14:40:05 Doctor Juan Manuel, [facility] PRACTICES FOR MEDICARE [facility] PATIENTS NO SHOW OR MISSED 2019-01-04 19:28:18 Doctor Juan Manuel, [facility] APPOINTMENT POLICY [facility] h ACKNOWLEDGEMENT REFERRAL- REQUEST/RESPONSE 2018-12-20 05:01:00 Doctor Juan Manuel , [facility] Name Medical Branch PATIENT CORRESPONDENCE 2018-12-06 05:01:00 Doctor Juan Manuel, [facility] (LETTERS, USPS [facility] DOCUMENTATION) Plan of Care Planned Activity Planned Date Details Comments Source Future Scheduled 2022 Screening for University [facility] Test 00:00:00 malignant neoplasm of Medica l Branch colon (procedure) [code = 821210100] Future Scheduled 2022 Screening for [facility] Test 00:00:00 malignant neoplasm of Medica l Branch colon (procedure) [code = 436284932] Future Scheduled 2021-09-07 Creatinine [facility] Test 00:00:00 measurement Medical Branch (procedure) [code = 74899514] Future Scheduled 2021-09-07 Creatinine [facility] Test 00:00:00 measurement Medical Branch (procedure) [code = 49266555] Future Scheduled 2021-09-05 Calculated low [facility] [place] Test 00:00:00 density lipoprotein Medical Branch cholesterol level (procedure) [code = 274535393] Future Scheduled 2021-09-05 Calculated low [facility] [place] Test 00:00:00 density lipoprotein Medical Branch cholesterol level (procedure) [code = 696287959] Future Scheduled 2021-05-08 Depression screening [facility] [place] Test 00:00:00 (procedure) [code = Medical Branch 041772888] Future Scheduled 2021-05-08 Depression screening [facility] [place] Test 00:00:00 (procedure) [code = Medical Branch 211371493] Future Scheduled 2021-03-07 Hemoglobin A1c [facility] [place] Test 00:00:00 measurement Medical Branch (procedure) [code = 32662140] Future Scheduled 2021-03-07 Hemoglobin A1c [facility] [place] Test 00:00:00 measurement Medical Branch (procedure) [code = 17752075] Future Scheduled 2021-01-27 INFLUENZA VACCINE [facility] [place] Test 00:00:00 (Season Ended) [code Medical Branch = INFLUENZA VACCINE (Season Ended)] Future Scheduled 2021-01-27 INFLUENZA VACCINE [facility] [place] Test 00:00:00 (Season Ended) [code Medical Branch = INFLUENZA VACCINE (Season Ended)] Future Scheduled 2020-10-31 Screening for [facility] [place] Test 00:00:00 malignant neoplasm of Medica l Branch breast (procedure) [code = 620161905] Future Scheduled 2020-10-31 Screening for [facility] [place] Test 00:00:00 malignant neoplasm of Medica l Branch breast (procedure) [code = 560821055] Future Scheduled 2020-09-25 Screening for [facility] [place] Test 00:00:00 malignant neoplasm of Medica l Branch cervix (procedure) [code = 193108199] Future Scheduled 2020-09-25 Screening for [facility] [place] Test 00:00:00 malignant neoplasm of Medica l Branch cervix (procedure) [code = 467306488] Future Scheduled 2020-05-10 Diabetic foot [facility] Test 00:00:00 examination Medical Branch (regime/therapy) [code = 325679479] Future Scheduled 2020-05-10 Diabetic foot [facility] Test 00:00:00 examination Medical Branch (regime/therapy) [code = 628996733] Future Scheduled 2019-09-01 Microalbumin [facility] Test 00:00:00 measurement, urine, Medical Branch quantitative (procedure) [code = 069423201] Future Scheduled 2019-09-01 Microalbumin [facility] Test 00:00:00 measurement, urine, Medical Branch quantitative (procedure) [code = 516658146] Future Scheduled 1991 DTaP,Tdap,and Td [facility] [place] Test 00:00:00 Vaccines (1 - Tdap) Medical Branch [code = DTaP,Tdap,and Td Vaccines (1 - Tdap)] Future Scheduled 1991 DTaP,Tdap,and Td [facility] [place] Test 00:00:00 Vaccines (1 - Tdap) Medical Branch [code = DTaP,Tdap,and Td Vaccines (1 - Tdap)] Future Scheduled 1990 Hepatitis C screening [facility] [place] Test 00:00:00 (procedure) [code = Medical Branch 849339706] Future Scheduled 1990 Hepatitis C screening [facility] [place] Test 00:00:00 (procedure) [code = Medical Branch 854925048] Future Scheduled 1988 SARS-CoV-2 (COVID-19) [facility] [place] Test 00:00:00 Vaccine (1) [code = Medical Branch SARS-CoV-2 (COVID-19) Vaccine (1)] Future Scheduled 1988 SARS-CoV-2 (COVID-19) [facility] [place] Test 00:00:00 Vaccine (1) [code = Medical Branch SARS-CoV-2 (COVID-19) Vaccine (1)] Future Scheduled 1982 Examination of retina [facility] [place] Test 00:00:00 (procedure) [code = Medical Branch 769052896] Future Scheduled 1982 Examination of retina [facility] [place] Test 00:00:00 (procedure) [code = Medical Branch 087352714] Future Scheduled 1978 PNEUMOCOCCAL 0-64 Univer sity [facility] Test 00:00:00 YEARS COMBINED SERIES Medica l Branch (1 of 1 - PPSV23) [code = PNEUMOCOCCAL 0-64 YEARS COMBINED SERIES (1 of 1 - PPSV23)] Future Scheduled 1978 PNEUMOCOCCAL 0-64 Univer sity [facility] Test 00:00:00 YEARS COMBINED SERIES Medica l Branch (1 of 1 - PPSV23) [code = PNEUMOCOCCAL 0-64 YEARS COMBINED SERIES (1 of 1 - PPSV23)] Encounters Start End Encounter Admission Attending Care Care Encounter Source Date/Time Date/Time Type Type Clinicians Facility Department ID 2021-03-29 Emergency [facility] [id number] Univers 23:28:09 ity of [facility] 2021-03-28 Emergency X [facility] [id number] Univers 11:58:59 ity of [facility] 2021-03-28 Emergency [facility] [id number] Univers 11:58:17 ity of [facility] 2021-03-26 Emergency [facility] [id number] Univers 12:39:58 ity of [facility] 2021-07-09 2021-07-09 Outpatient R MARK [facility] [id number] 5Q-20 Univers 13:30:00 13:30:00 ANATOLY [id number] ity of [facility] 2021-05-15 2021-05-15 [facility] [id number] Univers 00:00:00 00:00:00 Wondiful A HEALTH [id number] ity of [place] [id number] Raffy as PROFBRENT [phone] [facility] [address] [place] OFFICE BUILDING ONE 2021-05-13 2021-05-13 Orders Doctor VAISHALI 1.2.840.114 [id number] Univers 00:00:00 00:00:00 Only Unassigned, AIDA [id number] ity of [place] [facility] [id number] Raffy as [phone] [address] 2021-02-12 2021-02-12 Emergency [facility] 1.2.840.114 [id number] Univers 14:34:00 17:16:00 Fabby Hawkins [id number] ity [id number] [phone] [facility] 084 Branch 2021-02-12 2021-02-12 Office [facility] 1.2.840.114 [id number] Univers 13:04:40 15:13:23 Visit [facility] [id number] it y of [place] 4.2.7.2.686 Raffy as Charly?Blea [phone] Id dical kney [address] [place] Medical Office [facility] 2021-02-12 2021-02-12 [facility] [id number] -[id number] Univers 13:00:00 13:00:00 ALDA [id number] ity [facility] 2021-02-12 2021-02-12 [facility] [id number] Univers 13:00:00 13:00:00 ALDA ity [facility] 2021-01-19 2021-01-19 Transition Matthew Daniel 1.2.840.114 [id number] Univers 00:00:00 00:00:00 of Care Phyllis Mata [id number] it y [place] [phone] [facility] 403 Branch 2021-01-15 2021-01-17 [facility] 1.2.840.114 [id number] Univers 15:17:00 13:06:00 Encounter Celso Hawkins [id number] ity of [place] [phone] [facility] 0[address] [place] 2021-01-15 2021-01-15 Office [facility] 1.2.840.114 [id number] Univers 14:09:25 15:11:21 Visit Lily [place] [id number] ity of [id number] [phone] Id sonu nal 059 [facility] 2021-01-15 2021-01-15 [facility] [id number] -[id number] Univers 14:40:00 14:40:00 LILY [id number] ity o f [facility] 2021-01-15 2021-01-15 [facility] [id number] Univers 14:40:00 14:40:00 LILY ity o f [facility] 2021-01-01 2021-01-01 Office [facility] 1.2.049.136 [id number] Univers 11:28:43 12:58:14 Visit Anatoly [place] [id number] i ty kranthi [place] 4[place]2.7.2.[place] [phone] Id dical nal 220 Branch Building 2021-01-01 2021-01-01 [facility] [id number] 5Q-20 Univers 11:30:00 11:30:00 ANATOLY [id number] [facility] 2021-01-01 2021-01-01 [facility] [id number] Univers 11:30:00 11:30:00 ANATOLY [facility] 2020-12-18 2020-12-18 [facility] 1.2.840.114 [id number] Univers 00:00:00 00:00:00 Wondiful A [facility] [id number] ity of [place] 4.2.7.2.686 Raffy as Professio [phone] Id dical nal 044 Branch Office Building One 2020-12-02 2020-12-02 [facility] [id number] -[id number] Univers 16:00:00 16:00:00 LILY [id number] ity o [facility] 2020-12-02 2020-12-02 [facility] [id number] Univers 16:00:00 16:00:00 LILY ity o [facility] 2020-11-30 2020-12-01 [facility] Lily Jenkins 1.2.840.114 [id number] Univers 17:33:00 15:15:00 Ra Waddell 350.1.1 3.10 ity [facility] 4.2.7.2 .686 [place] Lesia Jc [phone] Medical 089 Branch 2020-12-01 2020-12-01 Outpatient R IGOR, [facility] [id number] Q-20 Univers 14:00:00 14:00:00 WONDIFUL [id number] ity o f [facility] 2020-12-01 2020-12-01 [facility] [id number] Univers 14:00:00 14:00:00 WONDIFUL ity o f [facility] 2020-11-30 2020-11-30 Outpatient [facility] [id number] -[id number] Univers 08:00:00 08:00:00 [id number] ity [facility] 2020-11-30 2020-11-30 Outpatient R [facility] [id number] Univers 08:00:00 08:00:00 ity [facility] 2020-11-30 2020-11-30 Hospital Diana Woodward 1.2.840.114 [id number] Univers 07:45:00 07:59:00 Encounter Brown Bennie Parra [id number] ity of [facility] 4.2.7.2.686 Raffy as [phone] [address] 2020-11-27 2020-11-27 Outpatient [facility] [id number] 5Q-20 Univers 14:00:00 14:00:00 ANATOLY [id number] ity [facility] 2020-11-27 2020-11-27 Outpatient [facility] [id number] Univers 14:00:00 14:00:00 ANATOLY ity [facility] 2020-11-25 2020-11-25 Telephone Diana Jenkins [id number] Univers 00:00:00 00:00:00 Lily Parra 350.1.13.10 i ty [facility] 4.2.7.2.686 Raffy as [phone] [address] 2020-11-25 2020-11-25 Telephone Gianfranco [facility] 1.2.112.099 [id number] Univers 00:00:00 00:00:00 Patient [place] 350.1.13.10 i ty of Does Not [place] 4.2.7.2.686 Raffy as Have A Professio [phone] Id dical uri 843 [facility] 2020-11-16 2020-11-16 Telephone Diana Jenkins 1.2.332.002 [id number] Univers 00:00:00 00:00:00 Lily [place] 350.1.13.10 i ty of Hospital 4.2.7.2.686 Raffy as [phone] [address] 2020-11-13 2020-11-13 Office [facility] 1.2.840.114 [id number] Univers 14:46:41 15:21:27 Visit Lily Hawkins 350.1.13.10 ity [place] [phone] Id sonu grewal 059 [facility] 2020-11-13 2020-11-13 Outpatient R GREGORY [facility] [id number] Univers 14:00:00 14:00:00 PANCHOMARTITA ity o [facility] 2020-11-13 2020-11-13 Outpatient R IGOR [facility] [id number] Q-20 Univers 13:00:00 13:00:00 WONDIFUL [id number] ity o f [facility] 2020-11-12 2020-11-12 Telephone [facility] 1.2.840.114 [id number] Univers 00:00:00 00:00:00 Wondiful A Health 350.1.13.10 ity of [place] 4.2.7.2.686 Raffy as Professio [phone] Id dicva uri 044 [facility] One 2020-10-28 2020-10-28 Pre Visit Igor [facility] 1.2.840.114 [id number] Univers 00:00:00 00:00:00 Outreach Wondiful A Health 350.1.13.10 ity of [place] 4.2.7.2.686 Raffy as Professio [phone] Id dicva uri [address] [place] Office Building One 2020-10-07 2020-10-07 Office Vance, [facility] 1.2.840.114 [id number] Univers 13:57:34 15:30:50 Visit Wentong [place] 350.1.13.10 i ty of [place]2.[place].2.[place] [phone] Id dical [facility] 220 [facility] 2020-10-07 2020-10-07 Outpatient R VANCE [facility] [id number] -[id number] Univers 14:00:00 14:00:00 WENTONG [id number] ity [facility] 2020-10-07 2020-10-07 Outpatient R VANCE [facility] [id number] Univers 14:00:00 14:00:00 WENTONG ity [facility] 2020-10-06 2020-10-06 Outpatient R VANCE, [facility] [id number] Univers 14:30:00 14:30:00 [facility] [id number] ity [facility] 2020-10-06 2020-10-06 Outpatient R VANCE [facility] [id number] Univers 14:30:00 14:30:00 WENTONG ity [facility] 2020-10-01 2020-10-01 Office Igor [facility] 1.2.840.114 [id number] 15:08:27 16:09:31 Visit Wondiful A Health 350.1.13.10 [place] 4.2.7.2.686 Professio [phone] [address] One 2020-10-01 2020-10-01 Office [facility] 1.2.840.114 [id number] Univers 15:08:27 16:09:31 Visit Wondiful A Health 350.1.13.10 ity of [place] 4.2.7.2.686 Raffy as Professio [phone] [facility] [address]44 [place] Office [facility] One 2020-10-01 2020-10-01 Outpatient R IGOR [facility] [id number] Univers 15:00:00 15:00:00 WONDIFUL ity o f [facility] 2020-09-26 2020-09-26 Refill Igor [facility] 1.2.840.114 [id number] Univers 00:00:00 00:00:00 Wondiful A Health 350.1.13.10 ity of [place] 4.2.7.2.686 Raffy as Professio [phone] [address] One 2020-09-24 2020-09-24 [facility] 1.2.840.114 [id number] Univers 00:00:00 00:00:00 Wondiful A Health 350.1.13.10 ity of [place] 4.2.7.2.686 Raffy as Professio [phone] [facility] nal [address] [place] [address] One 2020-09-11 2020-09-11 [facility] 1.2.840.114 [id number] Univers 00:00:00 00:00:00 Wondiful A Health 350.1.13.10 ity of [place] 4.2.7.2.686 Raffy as Professio [phone] [facility] nal [address] [place] [address] One 2020-09-09 2020-09-09 Transition David Gonzalezjoshua 1.2.840.114 [id number] Univers 00:00:00 00:00:00 of Care Garcia Bennie Petersony 350.1.13.10 ity of [place] [phone] [address] 2020-09-04 2020-09-07 [facility] Ronnie Murry [facility] 1.2.8 40.114 [id number] Univers 20:58:00 18:15:00 Encounter Anastasia Giraldo 350.1.13.1 0 ity of [place] 4.2.7.2.686 [facility] [phone] [address] 2020-09-04 2020-09-04 Office [facility] [id number] Univers 16:01:54 17:11:05 Visit Anatoly Hawkins 350.1.13.10 i ty of [place].2.[place] [phone] Id dical nal 220 [facility] 2020-09-04 2020-09-04 [facility] [id number] 5Q-20 Univers 16:00:00 16:00:00 ANATOLY [id number] [facility] 2020-09-04 2020-09-04 Outpatient R [facility] [id number] Univers 16:00:00 16:00:00 ANATOLY [facility] 2020-09-04 2020-09-04 Outpatient [facility] [id number] Univers 16:00:00 16:00:00 [facility] 2020-09-04 2020-09-04 Orders Doctor VAISHALI 1.2.840.114 [id number] Univers 00:00:00 00:00:00 Only Unassigned, AIDA 350.1.13.10 ity of [place] [facility] 4.2.7.2.686 Raffy as [phone] [address] 2020-08-13 2020-08-13 [facility] 1.2.840.114 [id number] Univers 00:00:00 00:00:00 [facility] 350.1.13.10 i ty of [facility] [place].2.[place] [phone] Id dical [address] 2020-08-04 2020-08-04 [facility] 1.2.070.340 [id number] Univers 00:00:00 00:00:00 Anatoly Hawkins 350.1.13.10 i ty of [place] [phone] Id dical nal 220 [facility] 2020-08-04 2020-08-04 Ref[facility]icia [facility] 1.2.840.114 [id number] Univers 00:00:00 00:00:00 Wondiful A Health 350.1.13.10 ity of [place] 4.2.7.2.686 [place]aff[place] as Professio [phone] [facility] [address] 2020-08-03 2020-08-03 Orders Doctor VAISHALI 1.2.840.114 [id number] Univers 00:00:00 00:00:00 Only Unassigned, AIDA 350.1.13.10 ity of [place] [facility] 4.2.7.2.686 [place]affy as [phone] [address] 2020-07-16 2020-07-16 Outpatient [facility] [id number] Univers 11:15:00 11:15:00 WONDIFUL ity o f [facility] 2020-06-22 2020-06-22 Ref[facility]icia [facility] 1.2.840.114 [id number] Univers 00:00:00 00:00:00 Wondiful A Health 350.1.13.10 ity of [place] 4.2.7.2.686 [place] Professio [phone] [address] Office [facility] One 2020-06-19 2020-06-19 Outpatient [facility] [id number] Q-20 Univers 14:00:00 14:00:00 WONDIFUL [id number] ity o [facility] 2020-06-08 2020-06-08 [facility] 1.2.840.114 [id number] Univers 00:00:00 00:00:00 Wondiful A Health 350.1.13.10 ity of [place] 4.2.7.2.686 [place] Professio [phone] [address] Office [facility] One 2020-06-05 2020-06-05 [facility] 1.2.840.114 [id number] Univers 00:00:00 00:00:00 Wondiful A Health 350.1.13.10 ity of [place] 4.2.7.2.686 [place] Professio [phone] [address] Office Building One 2020-05-28 2020-05-28 Outpatient Sonya COSTA [facility] [id number] Q-20 Univers 15:00:00 15:00:00 WONDIFUL [id number] ity o [facility] 2020-05-28 2020-05-28 Outpatient R IGOR, [facility] [id number] Univers 15:00:00 15:00:00 WONDIFUL ity o f [facility] 2020-05-19 2020-05-19 [facility] Center[facility]icia [facility] 1.2.840.114 [id number] Univers 00:00:00 00:00:00 Wondiful A Health 350.1.13.10 ity of [place] 4.2.7.2.686 [place] Professio [phone] [address] Office [facility] 2020-05-14 2020-05-14 Car[facility] Centerleticia [facility] 1.2.840.114 [id number] Univers 00:00:00 00:00:00 Wondiful A Health 350.1.13.10 ity of [place] 4.2.7.2.686 [place] Professio [phone] [address] 2020-05-13 2020-05-13 [facility] 1.2.840.114 [id number] Univers 00:00:00 00:00:00 Management W[facility]iful [facility] 350.1.13.10 ity of [place] 4.2.7.2.686 [place] Professio [phone] [address] 2020-05-08 2020-05-08 [facility] 1.2.838.501 [id number] 0106 Univers 14:47:36 23:59:00 Encounter Wondiful A [place] 350.1.13.10 ity of [place].7.2.[place] [phone] [address] 2020-05-08 2020-05-08 Outpatient R MARK [facility] [id number] 5Q-20 Univers 16:30:00 16:30:00 ANATOLY 193908 yue [facility] 2020-05-08 2020-05-08 Outpatient R MARK [facility] [id number] Univers 16:30:00 16:30:00 ANATOLY turner [facility] 2020-05-08 2020-05-08 Office [facility] 1.2.840.114 [id number] Univers 13:10:21 13:58:56 Visit Wondiful [facility] 350.1.13.10 ity of [place] 4.2.7.2.686 [place] Professio [phone] [facility] 044 [facility] 2020-05-08 2020-05-08 Orders Doctor TOM 1.2.840.114 [id number] Univers 00:00:00 00:00:00 Only Unassigned, AIDA 350.1.13.10 ity of [place] [facility] 4.2.7.2.686 [place]affy as [phone] [address] 2020-05-01 2020-05-01 Outpatient R IGOR, [facility] [id number] Q-20 Univers 10:30:00 10:30:00 WONDIFUL ity o f [facility] 2020-05-01 2020-05-01 [facility] [id number] Univers 10:30:00 10:30:00 WONDIFUL ity o f [facility] 2020-04-17 2020-04-17 [facility] 1.2.840.114 [id number] Univers 11:00:00 11:30:00 ne Visit Sisi Kylah Hawkins 350.1.13.10 ity of [place] [phone] [facility] 134 [facility] 2020-04-17 2020-04-17 Out[facility] [id number] -20 Univers 11:00:00 11:00:00 SISI ity [facility] 2020-04-17 2020-04-17 Outpatient R [facility] [id number] Univers 11:00:00 11:00:00 SISI ity of [facility] 2020-04-14 2020-04-14 Ref[facility]icia [facility] 1.2.840.114 [id number] Univers 00:00:00 00:00:00 Wondiful A Health 350.1.13.10 ity of [place] 4.2.7.2.686 [place] Professio [phone] [facility] 044 [facility] 2020-04-13 2020-04-13 Amy Villegas [facility] 1.2.222.417 [id number] Univers 00:00:00 00:00:00 Anatoly Hawkins 350.1.13.10 i ty of [place].2.[place] [phone] Id dical [facility] 220 [facility] 2020-04-08 2020-04-08 Telephone Adum, [facility] 1.2.604.459 [id number] Univers 00:00:00 00:00:00 Sisi Montero [place] 350.1.13.10 ity of [place].2.[place] [phone] Id dical nal 134 [facility] 2020-04-07 2020-04-07 Case Ad, [facility] 1.2.840.114 [id number] Univers 00:00:00 00:00:00 Management Sisi Hawkins 350.1.13.10 ity of [place].2.[place] [phone] Id dic[address] 2020-04-03 2020-04-03 [facility] 1.2.840.114 [id number] Univers 13:15:01 14:30:02 Visit Sisi Hawkins 350.1.13.10 ity of [place].2.[place] [phone] Id dic[address] 2020-04-03 2020-04-03 Outpatient R ADUM, [facility] [id number] Univers 13:30:00 13:30:00 SISI ity [facility] 2020-04-03 2020-04-03 Outpatient R ADUM, [facility] [id number] -20 Univers 10:30:00 10:30:00 SISI [id number] ity [facility] 2020-04-03 2020-04-03 Outpatient R ADUM, [facility] [id number] Univers 10:30:00 10:30:00 SISI ity [facility] 2020-04-01 2020-04-01 Telephone Serena Garsia [facility] 1.2.840.114 [id number] Univers 00:00:00 00:00:00 Cam [place] 350.1.13.10 i ty of [place].7.2.[place] [phone] Id sonu nal 134 [facility] 2020-03-20 2020-03-20 Refleticia Costa [facility] 1.2.840.114 [id number] Univers 00:00:00 00:00:00 Wondiful A Health 350.1.13.10 ity of [place] 4.2.7.2.686 [place] Professio [phone] Id sonu nal 044 [facility] One 2020-03-09 2020-03-09 Refleticia Costa [facility] 1.2.840.114 [id number] Univers 00:00:00 00:00:00 Wondiful A Health 350.1.13.10 ity of [place] 4.2.7.2.686 [place] Professio [phone] Id sonu nal 044 [facility] One 2020-02-17 2020-02-17 Telephone Igor [facility] 1.2.840.114 [id number] Univers 00:00:00 00:00:00 Wondiful A Health 350.1.13.10 ity of [place] 4.2.7.2.686 [place] Professio [phone] Id terranceal nal 044 [facility] One 2020-02-17 2020-02-17 Latricia Costa [facility] 1.2.840.114 [id number] Univers 00:00:00 00:00:00 Wondiful A Health 350.1.13.10 ity of [place] 4.2.7.2.686 [place] Professio [phone] [facility] 044 [facility] One 2020-01-13 2020-01-13 Refleticia Costa [facility] 1.2.840.114 [id number] Univers 00:00:00 00:00:00 Wondiful A Health 350.1.13.10 ity of [place] 4.2.7.2.686 [place] Professio [phone] Id terranceal nal 044 [facility] One 2020-01-11 2020-01-11 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 1, Adc Lab [facility] 1.2.840.114 [id number] Univers 10:55:34 11:10:34 Visit Anatoly Villegas 350.1.13.10 ity of [place].2.[place] [phone] [facility] [address] 2020-01-11 2020-01-11 Outpatient R [facility] [id number] -20 Univers 11:00:00 11:00:00 [id number] ity of [facility] 2020-01-11 2020-01-11 Outpatient R [facility] [id number] Univers 11:00:00 11:00:00 ity of [facility] 2020-01-10 2020-01-10 Office [facility] 1.2.821.961 [id number] Univers 16:40:13 17:43:53 Visit Anatoly Hawkins 350.1.13.10 i ty of [place].7.2.[place] [phone] Id dical nal [address] [place] [address] 2020-01-10 2020-01-10 [facility] [id number] 5Q-20 Univers 16:30:00 16:30:00 ANATOLY [id number] ity [facility] 2020-01-10 2020-01-10 Outpatient [facility] [id number] Univers 16:30:00 16:30:00 ANATOLY ity [facility] 2019-12-10 2019-12-10 Orders Doctor TOM 1.2.840.114 [id number] Univers 00:00:00 00:00:00 Only Unassigned, AIDA 350.1.13.10 ity of [place] [facility] 4.2.7.2.686 Raffy as [phone] [facility] [address] 2019-12-10 2019-12-10 Telephone [facility] 1.2.840.114 [id number] Univers 00:00:00 00:00:00 Anatoly Hawkins 350.1.13.10 i ty of [place].2.[place] [phone] Id dical nal 220 [facility] 2019-12-05 2019-12-05 Refill [facility] 1.2.922.717 [id number] Univers 00:00:00 00:00:00 Anatoly Hawkins 350.1.13.10 i ty of [place].2.[place] [phone] Id dical nal [address] 2019-11-06 2019-11-06 [facility] [id number] -20 Univers 15:40:00 15:40:00 LILY ity o f [facility] 2019-11-06 2019-11-06 Outpatient [facility] [id number] Univers 15:40:00 15:40:00 LILY ity o f [facility] 2019-11-03 2019-11-03 Amy [facility] 1.2.840.114 [id number] Univers 00:00:00 00:00:00 Wondimary [facility] 350.1.13.10 ity of [place] 4.2.7.2.686 [place] Professio [phone] [facility] [address] 2019-11-01 2019-11-01 [facility] [id number] Univers 11:35:42 23:59:00 ERNST ity of [facility] 2019-11-01 2019-11-01 [facility] 1.2.840.114 [id number] Univers 11:35:00 23:59:00 Encounter Ernst Hawkins 350.1.13.10 ity of [place].2.[place] [phone] [facility] [address] 2019-11-01 2019-11-01 [facility] [id number] 5Q-20 Univers 11:40:00 11:40:00 ERNST ity of [facility] 2019-11-01 2019-11-01 Orders Doctor TOM 1.2.840.114 [id number] Univers 00:00:00 00:00:00 Only Unassigned, AIDA 350.1.13.10 ity of [place] [facility] 4.2.7.2.686 Raffy as [phone] [facility] [address] 2019-10-25 2019-10-25 Outpatient [facility] [id number] 5Q-20 Univers 00:00:00 00:00:00 ERNST 023881 [facility] 2019-10-11 2019-10-11 Office Kilo [facility] 1.2.576.401 [id number] Univers 14:59:15 16:12:30 Visit Ernst Hawkins 350.1.13.10 i ty of [place].2.[place] [phone] Id dical nal 134 [facility] 2019-10-11 2019-10-11 Outpatient R KILO [facility] [id number] 5Q-20 Univers 15:00:00 15:00:00 ERNST [id number] [facility] 2019-10-11 2019-10-11 [facility] [id number] Univers 15:00:00 15:00:00 [facility] 2019-10-11 2019-10-11 Orders Doctor TOM 1.2.840.114 [id number] Univers 00:00:00 00:00:00 Only Unassigned, AIDA 350.1.13.10 [facility] 4.2.7.2.686 [place]aff[place] as [phone] [address] 2019-10-07 2019-10-07 Outpatient [facility] [id number] Univers 14:00:00 14:00:00 ERNST [facility] 2019-09-30 2019-09-30 Refill [facility] 1.2.090.293 [id number] Univers 00:00:00 00:00:00 Anatoly Hawkins 350.1.13.10 i ty of [place].2.[place] [phone] Id dical nal 220 [facility] 2019-09-20 2019-09-20 Outpatient [facility] [id number] Univers 16:30:00 16:30:00 ANATOLY itmargarette [facility] 2019-09-20 2019-09-20 Telemedici [facility] 1.2.840.114 [id number] Univers 09:52:35 10:22:35 ne Visit Anatoly Hawkins 350.1.13.10 ity of [place].2.[place] [phone] Id dical nal 220 [facility] 2019-08-30 2019-08-30 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 2, Adc Lab [facility] 1.2.840.114 [id number] Univers 09:08:00 09:23:00 Visit Lily Jenkins 350.1.13.10 ity of [place].2.[place] [phone] Id dical nal 353 [facility] 2019-08-30 2019-08-30 Outpatient R [facility] [id number] -20 Univers 09:15:00 09:15:00 [id number] ity of [facility] 2019-08-30 2019-08-30 Outpatient R GREGORY [facility] [id number] Univers 09:15:00 09:15:00 LILY ity o f [facility] 2019-08-30 2019-08-30 Orders Doctor VAISHALI 1.2.840.114 [id number] Univers 00:00:00 00:00:00 Only Unassigned, AIDA 350.1.13.10 ity of [place] [facility] 4.2.7.2.686 [place] [phone] [address] 2019-08-22 2019-08-22 Outpatient R IGOR [facility] [id number] Q-20 Univers 14:00:00 14:00:00 WONDIFUL [id number] ity o f [facility] 2019-08-22 2019-08-22 Outpatient R IGOR [facility] [id number] Univers 14:00:00 14:00:00 WONDIFUL ity o f [facility] 2019-08-22 2019-08-22 Telemedici [facility] 1..840.114 [id number] Univers 09:19:01 09:49:01 ne Visit Wonmeghaful A [facility] 350.1.13.10 ity of [place] 4.2.7.2.686 [place] Professio [phone] Id dical nal [address] One 2019-08-22 2019-08-22 Transition Matthew Chávez 1..840.114 [id number] Univers 00:00:00 00:00:00 of Care Jessica Mata 350.1.13.10 it y of [place] [phone] [facility] [address] 2019-08-20 2019-08-20 Transition Matthew Chávez 1.2.840.114 [id number] Univers 00:00:00 00:00:00 of Care Jessica Mata 350.1.13.10 it y of [place] [phone] [facility] [address] 2019-08-19 2019-08-19 Telephone [facility] 1.2.840.114 [id number] Univers 00:00:00 00:00:00 Wondiful A Health 350.1.13.10 ity of [place] 4.2.7.2.686 [place] Professio [phone] Id dical nal [address] 2019-08-12 2019-08-16 Inpatient U OKSANA [facility] [id number] Univers 22:36:00 12:57:00 CAPPS ity o f [facility] 2019-08-12 2019-08-16 Hospital Diana Romano 1.2.840.114 [id number] Univers 22:36:00 12:57:00 Encounter Génesis Aida 350.1.13.10 ity of [facility] 4.2.7.2.686 [place]aff[place] as [phone] [facility] [address] 2019-08-16 2019-08-16 Outpatient R [facility] [id number] -20 Univers 10:00:00 10:00:00 [id number] ity of [facility] 2019-08-16 2019-08-16 Outpatient R [facility] [id number] Univers 10:00:00 10:00:00 ity of [facility] 2019-08-12 2019-08-12 Telephone [facility] 1.2.981.212 [id number] Univers 00:00:00 00:00:00 Lily [place] 350.1.13.10 ity of [place].2.[place] [phone] [address] 2019-08-09 2019-08-09 Telephone Diana Jenkins 1.2.063.461 [id number] Univers 00:00:00 00:00:00 Qiagerry [place] 350.1.13.10 i ty of Hospital 4.2.7.2.686 [place] as [phone] [address] 2019-08-07 2019-08-07 Telephone Diana Jenkins 1.2.860.322 [id number] Univers 00:00:00 00:00:00 Qiangmartita Aida 350.1.13.10 i ty of Hospital 4.2.7.2.686 [place] as [phone] [address] 2019-08-05 2019-08-06 Office [facility] 1.2.840.114 [id number] Univers 10:54:42 21:31:12 Visit Lily Hawkins 350.1.13.10 ity of [place] [phone] [address] 2019-08-05 2019-08-05 Outpatient R [facility] [id number] Univers 11:20:00 11:20:00 LILY roy o f [facility] 2019-08-05 2019-08-05 Orders Doctor VAISHALI 1.2.840.114 [id number] Univers 00:00:00 00:00:00 Only Unassigned, AIDA 350.1.13.10 ity of [place] [facility] 4.2.7.2.686 [place]aff[place] as [phone] [address] 2019-02-04 2019-02-04 Office [facility] 1.2.840.114 [id number] Univers 09:40:44 10:41:11 Visit Lily Hawkins 350.1.13.10 ity of [place].2.[place] [phone] [address] 2019-02-04 2019-02-04 Orders Doctor VAISHALI 1.2.840.114 [id number] Univers 00:00:00 00:00:00 Only Unassigned, AIDA 350.1.13.10 ity of [place] [facility] 4.2.7.2.686 Raffy as [phone] [address] 2019-01-04 2019-01-04 Office Mark NVMINDY 1.2.400.766 [id number] Univers 14:30:15 15:51:35 Visit Anatoly Rodriguez [place] 350.1.13.10 i ty of [place].2.[place] [phone] Id dical [facility] 220 [facility] 2019-01-04 2019-01-04 Orders Doctor VAISHALI 1.2.840.114 [id number] Univers 00:00:00 00:00:00 Only Unassigned, AIDA 350.1.13.10 ity of [place] [facility] 4.2.7.2.686 Raff[place] as [phone] [address] 2018-12-20 2018-12-20 Orders Doctor VAISHALI 1.2.840.114 [id number] Univers 00:00:00 00:00:00 Only Unassigned, AIDA 350.1.13.10 ity of [place] [facility] 4.2.7.2.686 [place]aff[place] as [phone] [address] 2018-12-06 2018-12-06 Orders Doctor VAISHALI 1.2.840.114 [id number] Univers 00:00:00 00:00:00 Only Unassigned, AIDA 350.1.13.10 ity of [place] [facility] 4.2.7.2.686 Raffy as [phone] [address] 2018-06-27 2018-06-27 [facility] [id number] 11:57:00 11:57:00 [employer] [facility] Family Medicine Medicine Outpati ent Clinics 2018-06-15 2018-06-15 [facility] [id number] 16:24:00 16:24:00 [employer] [facility] Medicine Medicine Outpati ent Clinics 2018-06-13 2018-06-13 [facility] [id number] 13:30:00 13:30:00 [employer] [facility] Medicine l Medicine Outpati ent Clinics 2017-12-12 2017-12-12 Outpatient Michael Barr [id number] 13:22:00 13:22:00 [facility] 2017-11-20 2017-11-20 Outpatient Michael Barr [address] 10:30:00 10:30:00 [facility] 2017-11-02 2017-11-02 Outpatient Michael Barr [id number] 15:15:00 15:15:00 [facility] Results Test Description Test Time Test Comments Results Result Comments Source POCT GLUCOSE (AUTOMATED) 2021-02-12 21:30:54 Test Item Value Reference Range Interpretation Comme nts POCT GLU (test code = 1000532350) 441 mg/dL 70-110 H Lab Interpretation (test code = 31417-8) Abnormal [facility] GLUCOSE (AUTOMATED)2021-02-12 21:30:54 Test Item Value Reference Range Interpretation Comments POCT GLU (test code = 5103728344) 441 mg/dL 70-110 H Lab Interpretation (test code = Abnormal 95246-7) [facility] METABOLIC PANEL (NA, K, CL, CO2, GLUCOSE, BUN, CREATININE, CA)2021-02-12 21:22:44 Test Item Value Reference Range Interpretation Comments NA (test code = 128 mmol/L 135-145 L 9156222210) K (test code = 4.3 mmol/L 3.5-5.0 7273138845) CL (test code = 99 mmol/L 98-108 1458224750) CO2 TOTAL (test code = 19 mmol/L 23-31 L 4039918761) AGAP (test code = 2-16 5303838876) BUN (test code = 13 mg/dL 7-23 5273277023) GLUCOSE (test code = 522 mg/dL 70-110 HH 4258225634) CREATININE (test code = 0.62 mg/dL 0.50-1.04 8009394286) CALCIUM (test code = 8.2 mg/dL 8.6-10.6 L 3659878698) eGFR (test code = mL/min/1.73m2 2260494827) NISHA (test code = NISHA) Association of [...] tests). Lab Interpretation Abnormal (test code = 33745-7) [facility] METABOLIC PANEL (NA, K, CL, CO2, GLUCOSE, BUN, CREATININE, CA)2021-02-12 21:22:44 Test Item Value Reference Range Interpretation Comments NA (test code = 128 mmol/L 135-145 L 7736740473) K (test code = 4.3 mmol/L 3.5-5.0 7371081300) CL (test code = 99 mmol/L 98-108 9218965796) CO2 TOTAL (test code = 19 mmol/L 23-31 L 6306099060) AGAP (test code = 2-16 9222359835) BUN (test code = 13 mg/dL 7-23 3558805331) GLUCOSE (test code = 522 mg/dL 70-110 8370292025) CREATININE (test code = 0.62 mg/dL 0.50-1.04 6991323506) CALCIUM (test code = 8.2 mg/dL 8.6-10.6 L 1019341411) eGFR (test code = mL/min/1.73m2 3702642238) NISHA (test code = NISHA) Association of [...] tests). Lab Interpretation Abnormal (test code = 18800-4) [facility] WITH [id number] 20:50:11 Test Item Value Reference Range Interpretation Comments WBC (test code = See_Comment [Automated message] 6690-2) The system [employer] generated this result transmitted ref erence range: 4.30 - 1 1.10 10*3/?L. The re ference range was not u sed to interpret this result as normal/abnor mal. RBC (test code = See_Comment [Automated message] 789-8) The system [employer] generated this result transmitted ref erence range: [...] RDW-SD (test code 40.4 fL 39.0-49.9 = 55312-0) RDW-CV (test code 12.7 % 12.0-15.5 = 788-0) PLT (test code = See_Comment [Automated message] 777-3) The system [employer] generated this result transmitted ref erence range: 166 - 35 8 10*3/?L. The re ference range was not u sed to interpret this result as normal/abnor mal. MPV (test code = 10.3 fL 9.5-12.9 20468-8) NRBC/100 WBC (test See_Comment [Automat ed message] code = [id number]) The syste m which generated this result transmitted ref erence range: 0.0 - 10 .0 /100 WBCs. The refer ence range was not u sed to interpret this result as normal/abnor mal. NRBC x10^3 (test <0.01 See_Comment [Automated message] code = [id number]) The syste m which generated this result transmitted ref erence range: 10*3/?L. The reference range was not used to interpr et this result as normal/abnormal . GRAN MAT (NEUT) % 68.0 % (test code = 770-8) IMM GRAN % (test 0.30 % code = [id number]) LYMPH % (test code 23.0 % = 736-9) MONO % (test code 5.0 % = 5905-5) EOS % (test code = 3.0 % 713-8) BASO % (test code 0.7 % = 706-2) GRAN MAT 6.52 10*3/uL 1.88-7.09 x10^3(ANC) (test code = 5545372559) IMM GRAN x10^3 0.03 10*3/uL 0.00-0.06 (test code = 0124987902) LYMPH x10^3 (test 2.21 10*3/uL 1.32-3.29 code = 731-0) MONO x10^3 (test 0.48 10*3/uL 0.33-0.92 code = 742-7) EOS x10^3 (test 0.29 10*3/uL 0.03-0.39 code = 711-2) BASO x10^3 (test 0.07 10*3/uL 0.01-0.07 code = 704-7) [facility] WITH [id number] 20:50:11 Test Item Value Reference Range Interpretation Comments WBC (test code = See_Comment [Automated message] 1590-2) The system [employer] generated this result transmitted ref erence range: 4.30 - 1 1.10 10*3/?L. The re ference range was not u sed to interpret this result as normal/abnor mal. RBC (test code = See_Comment [Automated message] 309-8) The system [employer] generated this result transmitted ref erence range: [...] RDW-SD (test code 40.4 fL 39.0-49.9 = 50730-6) RDW-CV (test code 12.7 % 12.0-15.5 = 788-0) PLT (test code = See_Comment [Automated message] 777-3) The system whic h generated this result transmitted ref erence range: 166 - 35 8 10*3/?L. The re ference range was not u sed to interpret this result as normal/abnor mal. MPV (test code = 10.3 fL 9.5-12.9 40042-0) NRBC/100 WBC (test See_Comment [Automat ed message] code = 2718393017) The syste m which generated this result transmitted ref erence range: 0.0 - 10 .0 /100 WBCs. The refer ence range was not u sed to interpret this result as normal/abnor mal. NRBC x10^3 (test <0.01 See_Comment [Automated message] code = 1814860956) The syste m which generated this result transmitted ref erence range: 10*3/?L. The reference range was not used to interpr et this result as normal/abnormal . GRAN MAT (NEUT) % 68.0 % (test code = 770-8) IMM GRAN % (test 0.30 % code = 5467709148) LYMPH % (test code 23.0 % = 736-9) MONO % (test code 5.0 % = 5905-5) EOS % (test code = 3.0 % 713-8) BASO % (test code 0.7 % = 706-2) GRAN MAT 6.52 10*3/uL 1.88-7.09 x10^3(ANC) (test code = 6094084385) IMM GRAN x10^3 0.03 10*3/uL 0.00-0.06 (test code = 8984973321) LYMPH x10^3 (test 2.21 10*3/uL 1.32-3.29 code = 731-0) MONO x10^3 (test 0.48 10*3/uL 0.33-0.92 code = 742-7) EOS x10^3 (test 0.29 10*3/uL 0.03-0.39 code = 711-2) BASO x10^3 (test 0.07 10*3/uL 0.01-0.07 code = 704-7) [facility] GLUCOSE (AUTOMATED)2021-02-12 19:42:22 Test Item Value Reference Range Interpretation Comments POCT GLU (test code = 8621615272) 558 mg/dL 70-110 HH Lab Interpretation (test code = Abnormal 36881-7) [facility] GLUCOSE (AUTOMATED)2021-02-12 19:42:22 Test Item Value Reference Range Interpretation Comments POCT GLU (test code = 9582552228) 558 mg/dL 70-110 HH Lab Interpretation (test code = Abnormal 97851-0) [facility] GLUCOSE (AUTOMATED)2021-01-17 18:00:29 Test Item Value Reference Range Interpretation Comments POCT GLU (test code = 5997498671) 327 mg/dL 70-110 H Lab Interpretation (test code = Abnormal 25996-9) [facility] GLUCOSE (AUTOMATED)2021-01-17 13:28:29 Test Item Value Reference Range Interpretation Comments POCT GLU (test code = 7711275706) 374 mg/dL 70-110 H Lab Interpretation (test code = Abnormal 10017-4) [facility] METABOLIC PANEL (NA, K, CL, CO2, GLUCOSE, BUN, CREATININE, CA)2021-01-17 09:28:24 Test Item Value Reference Range Interpretation Comments NA (test code = 132 mmol/L 135-145 L 4414213450) K (test code = 4.5 mmol/L 3.5-5.0 9471374218) CL (test code = 106 mmol/L 98-108 4515316002) CO2 TOTAL (test code = 23 mmol/L 23-31 0638153351) AGAP (test code = 2-16 1442422290) BUN (test code = 19 mg/dL 7-23 3428366447) GLUCOSE (test code = 383 mg/dL 70-110 H 7269570654) CREATININE (test code = 0.71 mg/dL 0.50-1.04 5222353059) CALCIUM (test code = 7.9 mg/dL 8.6-10.6 L 1151278350) eGFR (test code = mL/min/1.73m2 5875108121) NISHA (test code = NISHA) Association of [...] tests). Lab Interpretation Abnormal (test code = 62920-0) [facility] WITH [id number] 09:16:04 Test Item Value Reference Range Interpretation Comments WBC (test code = See_Comment [Automated message] 6690-2) The system [employer] generated this result transmitted ref erence range: 4.30 - 1 1.10 10*3/?L. The re ference range was not u sed to interpret this result as normal/abnor mal. RBC (test code = See_Comment [Automated message] 789-8) The system [employer] generated this result transmitted ref erence range: [...] RDW-SD (test code 39.3 fL 39.0-49.9 = 81223-6) RDW-CV (test code 12.4 % 12.0-15.5 = 788-0) PLT (test code = See_Comment [Automated message] 777-3) The system whic h generated this result transmitted ref erence range: 166 - 35 8 10*3/?L. The re ference range was not u sed to interpret this result as normal/abnor mal. MPV (test code = 11.0 fL 9.5-12.9 06973-4) NRBC/100 WBC (test See_Comment [Automat ed message] code = 5580620119) The syste m which generated this result transmitted ref erence range: 0.0 - 10 .0 /100 WBCs. The refer ence range was not u sed to interpret this result as normal/abnor mal. NRBC x10^3 (test <0.01 See_Comment [Automated message] code = 2063789747) The syste m which generated this result transmitted ref erence range: 10*3/?L. The reference range was not used to interpr et this result as normal/abnormal . GRAN MAT (NEUT) % 52.9 % (test code = 770-8) IMM GRAN % (test 0.40 % code = 3936418738) LYMPH % (test code 35.0 % = 736-9) MONO % (test code 6.7 % = 5905-5) EOS % (test code = 4.0 % 713-8) BASO % (test code 1.0 % = 706-2) GRAN MAT 3.88 10*3/uL 1.88-7.09 x10^3(ANC) (test code = 4847152608) IMM GRAN x10^3 0.03 10*3/uL 0.00-0.06 (test code = 1356262302) LYMPH x10^3 (test 2.56 10*3/uL 1.32-3.29 code = 731-0) MONO x10^3 (test 0.49 10*3/uL 0.33-0.92 code = 742-7) EOS x10^3 (test 0.29 10*3/uL 0.03-0.39 code = 711-2) BASO x10^3 (test 0.07 10*3/uL 0.01-0.07 code = 704-7) [facility] GLUCOSE (AUTOMATED)2021-01-16 22:25:02 Test Item Value Reference Range Interpretation Comments POCT GLU (test code = 5381615426) 301 mg/dL 70-110 H Lab Interpretation (test code = Abnormal 68324-8) [facility] GLUCOSE (AUTOMATED)2021-01-16 21:22:23 Test Item Value Reference Range Interpretation Comments POCT GLU (test code = 3869418483) 228 mg/dL 70-110 H Lab Interpretation (test code = Abnormal 20120-5) [facility], [id number] 19:28:10 Test Item Value Reference Range Interpretation Comments dLDL Chol (test code = 78844-1) 51 mg/dL <130 Lab Interpretation (test code = Normal 14115-3) [facility] GLUCOSE (AUTOMATED)2021-01-16 13:20:02 Test Item Value Reference Range Interpretation Comments POCT GLU (test code = 4391743776) 282 mg/dL 70-110 H Lab Interpretation (test code = Abnormal 41825-9) [facility]id [facility] (Total Cholesterol, Triglycerides, HDL) - [id number] 10:51:04 Test Item Value Reference Range Interpretation Comments CHOL (test code = 123 mg/dL 120-200 5763604463) HDL (test code = 24 mg/dL >50 L 1884852482) HDLC RATIO (test code = See_Comment H [Au tomated message] 5320898267) The system [employer] generated this result transmitted ref erence range: <=4.5. T he reference range was not used to int erpret this result as normal/abnormal . TRIG (test code = 437 mg/dL 30-170 H 4150952298) LDL CHOL (test code = Unable to calculate 05871-1) LDL due to elev ated triglyceride le sweetie greater than 40 0 mg/dL. VLDL (test code = 87 mg/dL 5-60 H 0486741051) Lab Interpretation Abnormal (test code = 36708-5) [facility] Metabolic Panel (NA, K, CL, CO2, GLUCOSE, BUN, CREATININE, CA)2021-01-16 10:50:48 Test Item Value Reference Range Interpretation Comments NA (test code = 134 mmol/L 135-145 L 4126371489) K (test code = 2.7 mmol/L 3.5-5.0 LL 2104685998) CL (test code = 101 mmol/L 98-108 7883037155) CO2 TOTAL (test code = 24 mmol/L 23-31 6289968332) AGAP (test code = 2-16 2059924495) BUN (test code = 15 mg/dL 7-23 2986864462) GLUCOSE (test code = 160 mg/dL 70-110 H 6668858417) CREATININE (test code = 0.69 mg/dL 0.50-1.04 0893898204) CALCIUM (test code = 8.5 mg/dL 8.6-10.6 L 9916392439) eGFR (test code = mL/min/1.73m2 4225761502) NISHA (test code = NISHA) Association of [...] tests). Lab Interpretation Abnormal (test code = 88757-7) [facility] SoutheastMagnesium [id number] 10:35:20 Test Item Value Reference Range Interpretation Comments MAGNESIUM (test code = 4599591161) 1.5 mg/dL 1.7-2.4 L Lab Interpretation (test code = Abnormal 81805-5) [facility] with [id number] 10:03:39 Test Item Value Reference Range Interpretation Comments WBC (test code = See_Comment [Automated 3290-2) message] The sy stem which generated this result transmitted reference range : 4.30 - 11.10 10*3/?L. The reference range was not used to interpret this result as normal/abnormal . RBC (test code = See_Comment [Automated 709-8) message] The sy stem which generated this [...] (test code = 37.2 fL 39.0-49.9 L 77554-2) RDW-CV (test code = 12.1 % 12.0-15.5 788-0) PLT (test code = See_Comment [Automated 777-3) message] The sy stem which generated this result transmitted reference range : 166 - 358 10*3/ ?L. The reference r chelsie was not used to interpret this result as normal/abnormal . MPV (test code = 10.9 fL 9.5-12.9 78948-3) NRBC/100 WBC (test See_Comment [Automat ed code = 4000990658) message] The system which generated this result transmitted reference range : 0.0 - 10.0 /100 WBCs. The refer ence range was not u sed to interpret th is result as normal/abnormal . NRBC x10^3 (test code <0.01 See_Comment [Auto mated = 8303735037) message] The s ystem which generated this result transmitted reference range : 10*3/?L. The reference range was not used to interpret this result as normal/abnormal . GRAN MAT (NEUT) % 37.0 % (test code = 770-8) IMM GRAN % (test code 0.30 % = 2069516240) LYMPH % (test code = 47.8 % 736-9) MONO % (test code = 8.6 % 5905-5) EOS % (test code = 5.0 % 713-8) BASO % (test code = 1.3 % 706-2) GRAN MAT x10^3(ANC) 2.37 10*3/uL 1.88-7.09 (test code = 9013108216) IMM GRAN x10^3 (test <0.03 0.00-0.06 code = 4977107664) LYMPH x10^3 (test code 3.06 10*3/uL 1.32-3.29 = 731-0) MONO x10^3 (test code 0.55 10*3/uL 0.33-0.92 = 742-7) EOS x10^3 (test code = 0.32 10*3/uL 0.03-0.39 711-2) BASO x10^3 (test code 0.08 10*3/uL 0.01-0.07 H = 704-7) Lab Interpretation Abnormal (test code = 56985-0) [facility] GLUCOSE (AUTOMATED)2021-01-16 08:30:27 Test Item Value Reference Range Interpretation Comments POCT GLU (test code = 7873503209) 171 mg/dL 70-110 H Lab Interpretation (test code = Abnormal 82225-9) [facility]21-[facility]-16 03:57:09 Test Item Value Reference Range Interpretation Comments POCT GLU (test code = 0038077934) 407 mg/dL 70-110 H Lab Interpretation (test code = Abnormal 27616-3) [facility] ONLY COVID [id number] 02:31:30COVID DMT InterpretationInterpretation/Recommendations:Molecular NAAT Tests for Active [...] 1-2 weeks prior to antibody testing, any jkwiqxurSJVM-ZpM-1 IgG antibody result is likely due to [...] COVID-19 testing the patient has had at [facility], including molecular NAAT testing (more commonly known as PCR testing and Rapid ID Now testing) and antibody testing. It does not take into account any testing that a patient has had outside of the [facility] medical record. [facility] LABORATORY SERVICESCOVID FsvinvbQGIE-FiC-5 Rapid ID NOW (no units) ? ? Date ? Value ? 01/15/2021 ? Not Detected ? ? ? 11/30/2020 ? Not Detected ? ? ? 09/05/2020 ? Not Detected ? [facility] LABORATORY SERVICESUnMedical Arts HospitalUrinalysis2021-08-21 02:28:46 Test Item Value Reference Range Interpretation Comments APPEARANCE (test code = Hazy Clear A 3763405939) COLOR (test code = Yellow Yellow 1028318492) PH (test code = 4.8-8.0 1205659430) SP GRAVITY (test code = 1.003-1.030 7862519299) GLU U QUAL (test code = 500 mg/dL Normal A 1523610516) BLOOD (test code = 1+ Negative A 6214340363) KETONES (test code = Negative Negative 2219031274) PROTEIN (test code = Negative Negative 2887-8) UROBILIN (test code = Normal Normal 7435250122) BILIRUBIN (test code = Negative Negative 6209435850) NITRITE (test code = Negative Negative 0794292167) LEUK JOSEFA (test code = 500/uL Negative A 0547107653) RBC/HPF (test code = See_Comment H [Autom ated message] 0270720924) The system [employer] generated this result transmit anthony reference range : 0 - 3 HPF. The refe rence range was not u sed to interpret th is result as normal/abnormal . WBC/HPF (test code = See_Comment H [Autom ated message] 1618407624) The system [employer] generated this result transmit anthony reference range : 0 - 5 HPF. The refe rence range was not u sed to interpret th is result as normal/abnormal . BACTERIA (test code = Few Negative A 7197402632) MUCOUS (test code = Slight Negative LPF A 6743338735) SQ EPITH (test code = HPF 1550313478) Lab Interpretation (test Abnormal code = 22433-7) [facility]2021-01-16 01:20:09 Test Item Value Reference Range Interpretation Comments POCT GLU (test code = 1702168479) 525 mg/dL 70-110 HH Lab Interpretation (test code = Abnormal 12201-0) [facility] SoutheastThyroid Stimulating Hormone (TSH)2021-01-16 00:51:02 Test Item Value Reference Range Interpretation Comments TSH (test code = See_Comment [Automated message] 5663459765) The system [employer] generated this result transmitted ref erence range: 0.45 - 4 .70 mIU/L. The refe rence range was not u sed to interpret this result as normal/abnor mal. Lab Interpretation (test Normal code = 17802-5) [facility] SoutheastTroponin [id number] 00:32:40 Test Item Value Reference Interpretation Comments Range TROPONIN I (test 0.006 ng/mL See_Comment [Automated code = 2413310761) message] The system which generated this result [...] biotin. Lab Interpretation Normal (test code = 24219-1) [facility] SoutheastHEPATIC FUNCTION PANEL (12702) (ALB,T.PRO,BILI T,BU/BC,ALT,AST,ALK PHOS)2021-01-16 00:20:20 Test Item Value Reference Range Interpretation Comments TOTAL BILI (test code = 0486856018) 0.8 mg/dL 0.1-1.1 BILI UNCON (test code = 8719375382) 0.5 mg/dL 0.1-1.1 BILI CONJ (test code = 6474107853) 0.0 mg/dL 0.0-0.3 T PROTEIN (test code = 1794697386) 7.6 g/dL 6.3-8.2 ALBUMIN (test code = 9065734309) 4.0 g/dL 3.5-5.0 ALK PHOS (test code = 4431214401) 159 U/L 34-122 H ALTv (test code = 1742-6) 18 U/L 5-35 AST(SGOT) (test code = 9436209221) 27 U/L 13-40 Lab Interpretation (test code = Abnormal 62046-0) [facility] SoutheastPhosphorus [id number] 00:19:59 Test Item Value Reference Range Interpretation Comments PHOSPHORUS (test code = 7514841302) 3.4 mg/dL 2.5-5.0 Lab Interpretation (test code = Normal 26046-6) [facility] SoutheastGlycosylated Hemoglobin (A1C)2021-01-16 00:15:56 Test Item Value Reference Range Interpretation Comments HGB A1C (test code = >14.0 4.0-5.7 H 4548-4) NISHA (test code = NISHA) Reference RangesNormal: <5.7%Prediabetes: 5.7 - 6.4%Diabetes: > 6.5% Lab Interpretation (test Abnormal code = 51038-4) [facility]2021-01-15 22:36:13 Test Item Value Reference Range Interpretation Comments POCT GLU (test code = 2464776495) 565 mg/dL 70-110 HH Lab Interpretation (test code = Abnormal 37974-6) [facility] SoutheastCOVID-19 (ID NOW RAPID TESTING)2021-01-15 21:10:19 Test Item Value Reference Range Interpretation Comments SARS-CoV-2 Rapid ID NOW Not Detected Not Detected (test code = 99262-5) NISHA (test code = NISHA) ID NOW COVID-19 Assay is an isothermal nucleic acid amplification test intended for the qualitative detection of nucleic acid from SARS-CoV-2 viral RNA in nasopharyngeal (DIRECTOR OF GRADUATE ADMISSIONS) specimens. It is used under Emergency Use [...] indicated. Lab Interpretation Normal (test code = 98002-8) [facility] HEMOGLOBIN A1C [id number] 16:42:00 Test Item Value Reference Range Interpretation Comments POCT HBA1C (test code = 4548-4) 14 % 4-6 A Lab Interpretation (test code = Abnormal 80187-3) [facility] HEMOGLOBIN A1C [id number] 16:42:00 Test Item Value Reference Range Interpretation Comments POCT HBA1C (test code = 4548-4) 14 % 4-6 A Lab Interpretation (test code = Abnormal 47315-5) [facility] GLUCOSE (AUTOMATED)2020-12-01 17:40:09 Test Item Value Reference Range Interpretation Comments POCT GLU (test code = 350 mg/dL 70-110 H Notifi ed Provider 3714356584) Lab Interpretation (test Abnormal code = 91173-5) [facility] GLUCOSE (AUTOMATED)2020-12-01 13:22:36 Test Item Value Reference Range Interpretation Comments POCT GLU (test code = 4097318224) 215 mg/dL 70-110 H Lab Interpretation (test code = Abnormal 20983-4) [facility] Metabolic Panel (NA, K, CL, CO2, GLUCOSE, BUN, CREATININE, CA)2020-12-01 11:30:25 Test Item Value Reference Range Interpretation Comments NA (test code = 135 mmol/L 135-145 9625400710) K (test code = 4.0 mmol/L 3.5-5.0 4109740339) CL (test code = 104 mmol/L 98-108 9892811301) CO2 TOTAL (test code = 21 mmol/L 23-31 L 7039599500) AGAP (test code = 2-16 6286306433) BUN (test code = 13 mg/dL 7-23 9675562918) GLUCOSE (test code = 388 mg/dL 70-110 H 8189446812) CREATININE (test code = 0.69 mg/dL 0.50-1.04 1160890054) CALCIUM (test code = 8.0 mg/dL 8.6-10.6 L 4546916140) eGFR (test code = mL/min/1.73m2 9132154060) NISHA (test code = NISHA) Association of [...] tests). Lab Interpretation Abnormal (test code = 91665-6) [facility] SoutheastMagnesium [id number] 11:30:25 Test Item Value Reference Range Interpretation Comments MAGNESIUM (test code = 8251231529) 1.6 mg/dL 1.7-2.4 L Lab Interpretation (test code = Abnormal 01738-5) [facility] with Yjvaaibsjvlq0458-12-77 10:38:41 Test Item Value Reference Range Interpretation Comments WBC (test code = See_Comment [Automated 3890-2) message] The sy stem which generated this [...] (test code = 38.6 fL 39.0-49.9 L 40480-6) RDW-CV (test code = 12.1 % 12.0-15.5 788-0) PLT (test code = See_Comment [Automated 777-3) message] The sy stem which generated this result transmitted reference range : 166 - 358 10*3/ ?L. The reference r chelsie was not used to interpret this result as normal/abnormal . MPV (test code = 10.6 fL 9.5-12.9 06518-2) NRBC/100 WBC (test See_Comment [Automat ed code = 2261151136) message] The system which generated this result transmitted reference range : 0.0 - 10.0 /100 WBCs. The refer ence range was not u sed to interpret th is result as normal/abnormal . NRBC x10^3 (test code <0.01 See_Comment [Auto mated = 8258296916) message] The s ystem which generated this result transmitted reference range : 10*3/?L. The reference range was not used to interpret this result as normal/abnormal . GRAN MAT (NEUT) % 73.2 % (test code = 770-8) IMM GRAN % (test code 0.40 % = 8051340662) LYMPH % (test code = 18.4 % 736-9) MONO % (test code = 5.6 % 5905-5) EOS % (test code = 2.0 % 713-8) BASO % (test code = 0.4 % 706-2) GRAN MAT x10^3(ANC) 7.52 10*3/uL 1.88-7.09 H (test code = 0233556415) IMM GRAN x10^3 (test 0.04 10*3/uL 0.00-0.06 code = 7522683805) LYMPH x10^3 (test code 1.89 10*3/uL 1.32-3.29 = 731-0) MONO x10^3 (test code 0.58 10*3/uL 0.33-0.92 = 742-7) EOS x10^3 (test code = 0.21 10*3/uL 0.03-0.39 711-2) BASO x10^3 (test code 0.04 10*3/uL 0.01-0.07 = 704-7) Lab Interpretation Abnormal (test code = 62170-1) [facility]2020-12-01 02:30:55 Test Item Value Reference Range Interpretation Comments POCT GLU (test code = 1705396339) 347 mg/dL 70-110 H Lab Interpretation (test code = Abnormal 70043-9) [facility] SoutheastACTIVATED PARTIAL THRMPLAS [id number] 01:05:55 Test Item Value Reference Range Interpretation Comments APTT Patient (test code See_Comment H [Au tomated message] = 3173-2) The system whic h generated this result transmitted ref erence range: 26 - 36 Seconds. The reference range was not used to int erpret this result as normal/abnormal . Lab Interpretation (test Abnormal code = 56687-3) [facility] ONLY COVID [id number] 22:44:24COVID DMT InterpretationInterpretation/Recommendations:Molecular NAAT Tests for Active [...] COVID-19 testing the patient has had at [facility], including molecular NAAT testing (more commonly known as PCR testing and Rapid ID Now testing) and antibody testing. It does not take into account any testing that a patient has had outside of the [facility] medical record. [facility] LABORATORY SERVICESCOVID ResultsSARS- CoV-2 Rapid ID NOW (no units) ? ? Date ? Value ? 11/30/2020 ? Not Detected ? ? ? 09/05/2020 ? Not Detected ? [facility] SERVICESUnMedical Arts Hospital POCT ACT LOW [id number] 22:26:21 Test Item Value Reference Range Interpretation Comments ACTLR (test code = See_Comment H [Automat ed message] 3142375046) The system [employer] generated this result transmitted ref erence range: 89 - 169 Seconds. The reference range was not used to int erpret this result as normal/abnormal . Lab Interpretation (test Abnormal code = 52750-0) [facility]PO[facility] ACT LOW [id number] 22:03:24 Test Item Value Reference Range Interpretation Comments ACTLR (test code = See_Comment H [Automat ed message] 9929007449) The system [employer] generated this result transmitted ref erence range: 89 - 169 Seconds. The reference range was not used to int erpret this result as normal/abnormal . Lab Interpretation (test Abnormal code = 15622-4) [facility] SoutheastBASI METABOLIC PANEL (NA, K, CL, CO2, GLUCOSE, BUN, CREATININE, CA)2020-11-30 16:00:24 Test Item Value Reference Range Interpretation Comments NA (test code = 130 mmol/L 135-145 L 7363556484) K (test code = 3.8 mmol/L 3.5-5.0 0554619359) CL (test code = 98 mmol/L 98-108 4942012594) CO2 TOTAL (test code = 25 mmol/L 23-31 1466756093) AGAP (test code = 2-16 9313516379) BUN (test code = 12 mg/dL 7-23 4969736734) GLUCOSE (test code = 624 mg/dL 70-110 HH 8897588212) CREATININE (test code = 0.63 mg/dL 0.50-1.04 7742636346) CALCIUM (test code = 8.2 mg/dL 8.6-10.6 L 3679465263) eGFR (test code = mL/min/1.73m2 7326657445) NISHA (test code = NISHA) Association of [...] tests). Lab Interpretation Abnormal (test code = 59459-2) [facility] (ID NOW RAPID TESTING)2020-11-30 13:55:18 Test Item Value Reference Range Interpretation Comments SARS-CoV-2 Rapid ID NOW Not Detected Not Detected (test code = 62569-9) NISHA (test code = NISHA) ID NOW COVID-19 Assay is an isothermal nucleic acid amplification test intended for the qualitative detection of nucleic acid from SARS-CoV-2 viral RNA in nasopharyngeal (DIRECTOR OF GRADUATE ADMISSIONS) specimens. It is used under Emergency Use [...] indicated. Lab Interpretation Normal (test code = 44939-1) [facility] GLUCOSE(AGE >30DAYS)2020-10-07 19:39:00 Test Item Value Reference Range Interpretation Comments POCT Glu (age>30days) (test code = 189 mg/dL 70-110 A 3342) Lab Interpretation (test code = Abnormal 35207-6) [facility] GLUCOSE(AGE >30DAYS)2020-10-07 19:39:00 Test Item Value Reference Range Interpretation Comments POCT Glu (age>30days) (test code = 189 mg/dL 70-110 A 3342) Lab Interpretation (test code = Abnormal 77190-5) [facility] GLUCOSE (AUTOMATED)2020-09-07 22:31:04 Test Item Value Reference Range Interpretation Comments POCT GLU (test code = 3483393869) 72 mg/dL 70-110 Lab Interpretation (test code = Normal 36217-6) [facility] GLUCOSE (AUTOMATED)2020-09-07 21:54:57 Test Item Value Reference Range Interpretation Comments POCT GLU (test code = 7102733881) 88 mg/dL 70-110 Lab Interpretation (test code = Normal 37559-8) [facility], [id number] 21:07:23 Test Item Value Reference Range Interpretation Comments VIT D 25OH (test code = <13 25-80 L 98825-4) NISHA (test code = NISHA) Deficiency: <20 ng/mLInsufficiency: 20-24 ng/mLOptimal: 25-80 ng/mL Lab Interpretation (test Abnormal code = 23668-9) [facility] GLUCOSE (AUTOMATED)2020-09-07 20:17:01 Test Item Value Reference Range Interpretation Comments POCT GLU (test code = 1941422940) 47 mg/dL 70-110 LL Lab Interpretation (test code = Abnormal 55810-7) [facility] GLUCOSE (AUTOMATED)2020-09-07 17:19:43 Test Item Value Reference Range Interpretation Comments POCT GLU (test code = 3979192884) 46 mg/dL 70-110 LL Lab Interpretation (test code = Abnormal 08184-4) [facility] GLUCOSE (AUTOMATED)2020-09-07 17:19:42 Test Item Value Reference Range Interpretation Comments POCT GLU (test code = 1612908283) 183 mg/dL 70-110 H Lab Interpretation (test code = Abnormal 67859-7) [facility] WITH [id number] 11:16:01 Test Item Value Reference Range Interpretation [...] RDW-SD (test code = 42.8 fL 39.0-49.9 37849-5) RDW-CV (test code = 13.1 % 12.0-15.5 788-0) PLT (test code = See_Comment [Automated 777-3) message] The sy stem which generated this result transmitted reference range : 166 - 358 10*3/ ?L. The reference r chelsie was not used to interpret this result as normal/abnormal . MPV (test code = 11.4 fL 9.5-12.9 50063-5) IPF % (test code = 3.7 % 1.3-7.7 Platelet count 7311667837) measured by fluorescence method. NRBC/100 WBC (test See_Comment [Automat ed code = 1076381062) message] The system which generated this result transmitted reference range : 0.0 - 10.0 /100 WBCs. The refer ence range was not u sed to interpret th is result as normal/abnormal . NRBC x10^3 (test code <0.01 See_Comment [Auto mated = 0504447424) message] The s ystem which generated this result transmitted reference range : 10*3/?L. The reference range was not used to interpret this result as normal/abnormal . GRAN MAT (NEUT) % 82.6 % (test code = 770-8) IMM GRAN % (test code 0.50 % = 8105666782) LYMPH % (test code = 8.8 % 736-9) MONO % (test code = 6.3 % 5905-5) EOS % (test code = 1.6 % 713-8) BASO % (test code = 0.2 % 706-2) GRAN MAT x10^3(ANC) 11.20 10*3/uL 1.88-7.09 H (test code = 3273702034) IMM GRAN x10^3 (test 0.07 10*3/uL 0.00-0.06 H code = 4021842990) LYMPH x10^3 (test 1.19 10*3/uL 1.32-3.29 L code = 731-0) MONO x10^3 (test code 0.85 10*3/uL 0.33-0.92 = 742-7) EOS x10^3 (test code 0.22 10*3/uL 0.03-0.39 = 711-2) BASO x10^3 (test code 0.03 10*3/uL 0.01-0.07 = 704-7) Lab Interpretation Abnormal (test code = 50847-7) [facility] 11:07:40 Test Item Value Reference Range Interpretation Comments POCT GLU (test code = 3636259152) 215 mg/dL 70-110 H Lab Interpretation (test code = Abnormal 98737-0) [facility] METABOLIC PANEL (39643)2020-09-07 10:56:53 Test Item Value Reference Range Interpretation Comments NA (test code = 137 mmol/L 135-145 0986246034) K (test code = 4.6 mmol/L 3.5-5.0 0500310030) CL (test code = 109 mmol/L 98-108 H 5837076161) CO2 TOTAL (test code = 22 mmol/L 23-31 L 6064522517) AGAP (test code = 2-16 2765544588) BUN (test code = 8 mg/dL 7-23 5493303704) GLUCOSE (test code = 177 mg/dL 70-110 H 7739352040) CREATININE (test code = 0.62 mg/dL 0.50-1.04 1013278505) TOTAL BILI (test code = 0.3 mg/dL 0.1-1.2 9006278680) CALCIUM (test code = 7.9 mg/dL 8.6-10.6 L 2615089591) T PROTEIN (test code = 5.1 g/dL 6.3-8.2 L 9333582805) ALBUMIN (test code = 2.7 g/dL 3.5-5.0 L 5531929833) ALK PHOS (test code = 73 U/L 34-122 6416167622) ALTv (test code = 14 U/L 5-35 1742-6) AST(SGOT) (test code = 23 U/L 13-40 8731244211) eGFR (test code = mL/min/1.73m2 8823658050) NISHA (test code = NISHA) Association of [...] tests). Lab Interpretation Abnormal (test code = 39428-5) [facility]ORT[facility]OL STIMUL[facility] 30 [id number] 06:01:46 Test Item Value Reference Range Interpretation Comments ISIDORO 30 (test code 17.8 ug/dL = 0437564429) NISHA (test code = Normal peak serum cortisol NISHA) is greater than 20 ug/dL 30-60 minutes after 25 units of Cosyntropin IV. Biotin has been reported to cause a positive bias, interpret results relative to patient's use of biotin. [facility]ORT[facility] ST[facility] 0 [id number] 05:52:48 Test Item Value Reference Range Interpretation Comments ISIDORO 0 (test code = 15.7 ug/dL 4.5-23.0 9291905701) NISHA (test code = NISHA) Biotin has been reported to cause a positive bias, interpret results relative to patient's use of biotin. Lab Interpretation (test Normal code = 74983-4) [facility]ORT[facility]OL ST[facility] 60 [id number] 05:51:28 Test Item Value Reference Range Interpretation Comments ISIDORO 60 (test code 16.6 ug/dL = 1674110639) NISHA (test code = Normal peak serum cortisol NISHA) is greater than 20 ug/dL 30-60 minutes after 25 units of Cosyntropin IV. Biotin has been reported to cause a positive bias, interpret results relative to patient's use of biotin. [facility]2020-09-06 21:06:52 Test Item Value Reference Range Interpretation Comments POCT GLU (test code = 4267743718) 73 mg/dL 70-110 Lab Interpretation (test code = Normal 10143-3) [facility] GLUCOSE (AUTOMATED)2020-09-06 20:00:38 Test Item Value Reference Range Interpretation Comments POCT GLU (test code = 6271346764) 38 mg/dL 70-110 LL Lab Interpretation (test code = Abnormal 40331-7) [facility]CORTISOL [id number] 18:39:49 Test Item Value Reference Range Interpretation Comments ISIDORO AM (test code = 1.6 ug/dL 4.5-23.0 L 7827652769) NISHA (test code = NISHA) Biotin has been reported to cause a positive bias, interpret results relative to patient's use of biotin. Lab Interpretation (test Abnormal code = 83329-3) [facility] GLUCOSE (AUTOMATED)2020-09-06 16:42:57 Test Item Value Reference Range Interpretation Comments POCT GLU (test code = 5686613328) 120 mg/dL 70-110 H Lab Interpretation (test code = Abnormal 98649-0) [facility] GLUCOSE (AUTOMATED)2020-09-06 12:48:51 Test Item Value Reference Range Interpretation Comments POCT GLU (test code = 6632692898) 217 mg/dL 70-110 H Lab Interpretation (test code = Abnormal 25477-2) [facility]-TERMINAL [id number] 11:44:45 Test Item Value Reference Range Interpretation Comments NT-proBNP (test code 423 pg/mL See_Comment H [Autom ated = 5064243948) message] The system which generated this result transmitted reference range : <=125. The reference range was not used to interpret this result as normal/abnormal . NISHA (test code = NISHA) Biotin has been reported to cause a negative bias, interpret results relative to patient's use of biotin. Lab Interpretation Abnormal (test code = 37785-5) [facility]MAGNESIUM2021-04-11 11:36:41 Test Item Value Reference Range Interpretation Comments MAGNESIUM (test code = 6035487053) 1.7 mg/dL 1.7-2.4 Lab Interpretation (test code = Normal 70366-0) [facility]. METABOLIC PANEL (59001)2020-09-06 11:36:21 Test Item Value Reference Range Interpretation Comments NA (test code = 138 mmol/L 135-145 2284209706) K (test code = 4.1 mmol/L 3.5-5.0 0476762925) CL (test code = 110 mmol/L 98-108 H 8304867692) CO2 TOTAL (test code = 25 mmol/L 23-31 6512815723) AGAP (test code = 2-16 8798664495) BUN (test code = 9 mg/dL 7-23 4932454599) GLUCOSE (test code = 196 mg/dL 70-110 H 2448355272) CREATININE (test code = 0.78 mg/dL 0.50-1.04 7865378420) TOTAL BILI (test code = 0.4 mg/dL 0.1-1.5 5350891560) CALCIUM (test code = 7.9 mg/dL 8.6-10.6 L 4623727255) T PROTEIN (test code = 5.0 g/dL 6.3-8.2 L 5775304025) ALBUMIN (test code = 2.6 g/dL 3.5-5.0 L 7345669968) ALK PHOS (test code = 65 U/L 34-122 0985571958) ALTv (test code = 13 U/L 5-35 1742-6) AST(SGOT) (test code = 24 U/L 13-40 7739147052) eGFR (test code = mL/min/1.73m2 6822489135) NISHA (test code = NISHA) Association of [...] tests). Lab Interpretation Abnormal (test code = 81791-9) [facility]PHOSPHORUS2021-04-11 11:36:20 Test Item Value Reference Range Interpretation Comments PHOSPHORUS (test code = 8653852034) 4.3 mg/dL 2.5-5.0 Lab Interpretation (test code = Normal 54780-7) [facility] WITH [id number] 11:26:03 Test Item Value Reference Range Interpretation Comments WBC (test code = See_Comment [Automated 6690-2) message] The sy stem which generated this result transmitted reference range : 4.30 - 11.10 10*3/?L. The reference range was not used to interpret this result as normal/abnormal . RBC (test code = See_Comment L [Automated 409-8) message] The sy stem which generated this [...] RDW-SD (test code = 42.7 fL 39.0-49.9 93549-4) RDW-CV (test code = 13.2 % 12.0-15.5 788-0) PLT (test code = See_Comment [Automated 777-3) message] The sy stem which generated this result transmitted reference range : 166 - 358 10*3/ ?L. The reference r chelsie was not used to interpret this result as normal/abnormal . MPV (test code = 10.5 fL 9.5-12.9 10929-7) NRBC/100 WBC (test See_Comment [Automat ed code = 5440294210) message] The system which generated this result transmitted reference range : 0.0 - 10.0 /100 WBCs. The refer ence range was not u sed to interpret th is result as normal/abnormal . NRBC x10^3 (test code <0.01 See_Comment [Auto mated = 3405314141) message] The s ystem which generated this result transmitted reference range : 10*3/?L. The reference range was not used to interpret this result as normal/abnormal . GRAN MAT (NEUT) % 61.4 % (test code = 770-8) IMM GRAN % (test code 0.40 % = 1486570439) LYMPH % (test code = 26.8 % 736-9) MONO % (test code = 7.3 % 5905-5) EOS % (test code = 3.6 % 713-8) BASO % (test code = 0.5 % 706-2) GRAN MAT x10^3(ANC) 4.65 10*3/uL 1.88-7.09 (test code = 7527857451) IMM GRAN x10^3 (test 0.03 10*3/uL 0.00-0.06 code = 7332594725) LYMPH x10^3 (test code 2.03 10*3/uL 1.32-3.29 = 731-0) MONO x10^3 (test code 0.55 10*3/uL 0.33-0.92 = 742-7) EOS x10^3 (test code = 0.27 10*3/uL 0.03-0.39 711-2) BASO x10^3 (test code 0.04 10*3/uL 0.01-0.07 = 704-7) Lab Interpretation Abnormal (test code = 07319-7) [facility]2020-[facility]-06 09:31:41 Test Item Value Reference Range Interpretation Comments POCT GLU (test code = 7581115117) 119 mg/dL 70-110 H Lab Interpretation (test code = Abnormal 40553-0) [facility] SoutheastSEDIMENTATION [id number] 02:23:15 Test Item Value Reference Range Interpretation Comments ESR (test code = See_Comment H [Automated message] 8623947757) The system [employer] generated this result transmitted ref erence range: 0 - 20 m m/HR. The reference r chelsie was not used to interpret this result as normal/abnor mal. Lab Interpretation (test Abnormal code = 09035-3) [facility]TROPONIN [id number] 01:26:18 Test Item Value Reference Range Interpretation Comments TROPONIN I (test 0.004 ng/mL See_Comment [Automated code = 5950518287) message] The system which generated this result [...] ? Lab Interpretation Normal (test code = 86556-3) [facility] GLUCOSE (AUTOMATED)2020-09-05 21:59:05 Test Item Value Reference Range Interpretation Comments POCT GLU (test code = 5168941464) 119 mg/dL 70-110 H Lab Interpretation (test code = Abnormal 52153-3) [facility] GLUCOSE (AUTOMATED)2020-09-05 20:48:26 Test Item Value Reference Range Interpretation Comments POCT GLU (test code = 1946059149) 237 mg/dL 70-110 H Lab Interpretation (test code = Abnormal 01819-1) [facility] GLUCOSE (AUTOMATED)2020-09-05 20:48:26 Test Item Value Reference Range Interpretation Comments POCT GLU (test code = 7178774051) 208 mg/dL 70-110 H Lab Interpretation (test code = Abnormal 30770-8) [facility] SoutheastLIPID PANEL (48023)(TOTAL CHOLESTEROL, TRIGLYCERIDES, HDL)2020-09-05 20:09:59 Test Item Value Reference Range Interpretation Comments CHOL (test code = 175 mg/dL 120-200 4406871735) HDL (test code = 29 mg/dL >50 L 3675624620) HDLC RATIO (test code = See_Comment H [Au tomated message] 5322133393) The system [employer] generated this result transmit anthony reference range : <=4.5. The refe rence range was not u sed to interpret th is result as normal/abnormal . TRIG (test code = 359 mg/dL 30-170 H 4687621332) LDL CHOL (test code = 74 mg/dL See_Comment [Auto mated message] 39190-9) The system [employer] generated this result transmit anthony reference range : <=160. The refe rence range was not u sed to interpret th is result as normal/abnormal . VLDL (test code = 72 mg/dL 5-60 H 9895470893) Lab Interpretation (test Abnormal code = 55284-5) [facility] B12, [id number] 19:54:18 Test Item Value Reference Range Interpretation Comments VIT B12 (test code = 589 pg/mL 240-930 9829128543) NISHA (test code = NISHA) Biotin has been reported to cause a positive bias, interpret results relative to patient's use of biotin. Lab Interpretation (test Normal code = 58027-8) [facility]PROCALCITONIN2021-04-10 16:28:13 Test Item Value Reference Range Interpretation Comments Procalcitonin (test 0.02 ng/mL <0.07 code = 7944564817) NISHA (test code = NISHA) INTERPRETATION OF [...] lung abscess/empyema. For further information please refer to:[email or web address] Lab Interpretation Normal (test code = 27939-0) [facility] SoutheastGLYCOSYLATED HEMOGLOBIN (A1C)2020-09-05 14:17:09 Test Item Value Reference Range Interpretation Comments HGB A1C (test code = >14.0 4.0-6.0 H 4548-4) NISHA (test code = NISHA) %A1C (NGSP) Interpretation (ADA)4.8-5.6 ? ? Normal or (Non-Diabetic Range)5.7-6.4 ? ? Increased Risk (Pre-Diabetic)>6.5 ?Diabetes Indicated Lab Interpretation Abnormal (test code = 94364-2) [facility]TROPONIN [id number] 12:34:46 Test Item Value Reference Range Interpretation Comments TROPONIN I (test 0.006 ng/mL See_Comment [Automated code = 3717687561) message] The system which generated this result [...] ? Lab Interpretation Normal (test code = 23854-8) [facility]N-TERMINAL [id number] 12:31:45 Test Item Value Reference Range Interpretation Comments NT-proBNP (test code 465 pg/mL See_Comment H [Autom ated = 4589002083) message] The system which generated this result transmitted reference range : <=125. The reference range was not used to interpret this result as normal/abnormal . NISHA (test code = NISHA) Biotin has been reported to cause a negative bias, interpret results relative to patient's use of biotin. Lab Interpretation Abnormal (test code = 76128-6) [facility]MAGN[facility]UM2021-04-10 12:23:24 Test Item Value Reference Range Interpretation Comments MAGNESIUM (test code = 6034015933) 1.2 mg/dL 1.7-2.4 L Lab Interpretation (test code = Abnormal 33324-8) [facility]COMP. METABOLIC PANEL (91817)2020-09-05 12:23:06 Test Item Value Reference Range Interpretation Comments NA (test code = 138 mmol/L 135-145 5011277069) K (test code = 3.0 mmol/L 3.5-5.0 L 6666857386) CL (test code = 102 mmol/L 98-108 5176800028) CO2 TOTAL (test code = 28 mmol/L - 6679464324) AGAP (test code = 2-16 3380206049) BUN (test code = 11 mg/dL 7-23 8515643140) GLUCOSE (test code = 172 mg/dL 70-110 H 2239294430) CREATININE (test code = 0.60 mg/dL 0.50-1.04 5064913674) TOTAL BILI (test code = 0.5 mg/dL 0.1-1.5 5518777809) CALCIUM (test code = 8.0 mg/dL 8.6-10.6 L 3373924458) T PROTEIN (test code = 5.9 g/dL 6.3-8.2 L 0210775890) ALBUMIN (test code = 3.2 g/dL 3.5-5.0 L 5057469284) ALK PHOS (test code = 97 U/L 34-122 9594153874) ALTv (test code = 17 U/L 5-35 1742-6) AST(SGOT) (test code = 21 U/L 13-40 9260306810) eGFR (test code = mL/min/1.73m2 2826326610) NISHA (test code = NISHA) Association of [...] tests). Lab Interpretation Abnormal (test code = 06589-0) [facility] SoutheastCREATINE [id number] 12:22:45 Test Item Value Reference Range Interpretation Comments CK (test code = 8070619213) 39 U/L 33-194 Lab Interpretation (test code = Normal 26335-2) [facility] SoutheastPROTHROMBIN TIME / [id number] 11:59:05 Test Item Value Reference Range Interpretation Comments PROTIME PATIENT (test See_Comment [Auto mated message] code = 5964-2) The system [employer] generated this result transmitted ref erence range: 12.0 - 1 4.7 Seconds. The re ference range was not u sed to interpret this result as normal/abnor mal. INR (test code = 6301-6) Nor mal INR <1.1; Warfarin Therap eutic range 2.0 to 3. 0 or 2.5 to 3.5, dep ending upon the indica tions. Lab Interpretation (test Normal code = 39422-1) [facility] SoutheastCT ABDOMEN PELVIS WO [id number] 11:36:381. 3-4 mm, bilateral nonobstructing renal stones [...] are seen.2. Otherwise, no acute finding.RL: [id number] [facility] WITH [id number] 11:29:17 Test Item Value Reference Range Interpretation Comments WBC (test code = See_Comment [Automated 4267-2) message] The sy stem which generated this result transmitted reference range : 4.30 - 11.10 10*3/?L. The reference range was not used to interpret this result as normal/abnormal . RBC (test code = See_Comment [Automated 823-2) message] The sy stem which generated this [...] (test code = 38.2 fL 39.0-49.9 L 58953-5) RDW-CV (test code = 12.4 % 12.0-15.5 788-0) PLT (test code = See_Comment [Automated 777-3) message] The sy stem which generated this result transmitted reference range : 166 - 358 10*3/ ?L. The reference r chelsie was not used to interpret this result as normal/abnormal . MPV (test code = 10.9 fL 9.5-12.9 59841-8) NRBC/100 WBC (test See_Comment [Automat ed code = 0038031457) message] The system which generated this result transmitted reference range : 0.0 - 10.0 /100 WBCs. The refer ence range was not u sed to interpret th is result as normal/abnormal . NRBC x10^3 (test code <0.01 See_Comment [Auto mated = 1877587283) message] The s ystem which generated this result transmitted reference range : 10*3/?L. The reference range was not used to interpret this result as normal/abnormal . GRAN MAT (NEUT) % 61.7 % (test code = 770-8) IMM GRAN % (test code 0.40 % = 4750854832) LYMPH % (test code = 26.7 % 736-9) MONO % (test code = 7.7 % 5905-5) EOS % (test code = 3.0 % 713-8) BASO % (test code = 0.5 % 706-2) GRAN MAT x10^3(ANC) 5.11 10*3/uL 1.88-7.09 (test code = 8015183920) IMM GRAN x10^3 (test 0.03 10*3/uL 0.00-0.06 code = 2743235414) LYMPH x10^3 (test code 2.21 10*3/uL 1.32-3.29 = 731-0) MONO x10^3 (test code 0.64 10*3/uL 0.33-0.92 = 742-7) EOS x10^3 (test code = 0.25 10*3/uL 0.03-0.39 711-2) BASO x10^3 (test code 0.04 10*3/uL 0.01-0.07 = 704-7) Lab Interpretation Abnormal (test code = 82629-2) [facility] SoutheastTHYROID STIMULATING [id number] 10:36:10 Test Item Value Reference Range Interpretation Comments TSH (test code = See_Comment [Automated message] 4164221070) The system [employer] generated this result transmitted ref erence range: 0.45 - 4 .70 mIU/L. The refe rence range was not u sed to interpret this result as normal/abnor mal. Lab Interpretation (test Normal code = 06652-2) [facility]MAGN[facility]IUM2021-04-10 10:04:49 Test Item Value Reference Range Interpretation Comments MAGNESIUM (test code = 2734239214) 1.3 mg/dL 1.7-2.4 L Lab Interpretation (test code = Abnormal 06088-5) [facility]PHOSPHORUS2021-04-10 10:04:49 Test Item Value Reference Range Interpretation Comments PHOSPHORUS (test code = 9299973932) 3.7 mg/dL 2.5-5.0 Lab Interpretation (test code = Normal 62410-6) [facility]COVID-19 (ID NOW RAPID TESTING)2020-09-05 06:06:14 Test Item Value Reference Range Interpretation Comments SARS-CoV-2 Rapid ID NOW Not Detected Not Detected (test code = 27511-7) NISHA (test code = NISHA) ID NOW COVID-19 Assay is an isothermal nucleic acid amplification test intended for the qualitative detection of nucleic acid from SARS-CoV-2 viral RNA in nasopharyngeal (DIRECTOR OF GRADUATE ADMISSIONS) specimens. It is used under Emergency Use [...] indicated. Lab Interpretation Normal (test code = 12404-8) [facility]PO[facility] GL[facility]SE (AUTOMATED)2020-09-05 04:27:52 Test Item Value Reference Range Interpretation Comments POCT GLU (test code = 1071215494) 463 mg/dL 70-110 HH Lab Interpretation (test code = Abnormal 02217-9) [facility] SoutheastTROPONIN [id number] 03:44:02 Test Item Value Reference Range Interpretation Comments TROPONIN I (test 0.004 ng/mL See_Comment [Automated code = 2757391913) message] The system which generated this result [...] ? Lab Interpretation Normal (test code = 66125-1) [facility]N-TERMINAL [id number] 03:40:44 Test Item Value Reference Range Interpretation Comments NT-proBNP (test code 351 pg/mL See_Comment H [Autom ated = 9778910788) message] The system which generated this result transmitted reference range : <=125. The reference range was not used to interpret this result as normal/abnormal . NISHA (test code = NISHA) Biotin has been reported to cause a negative bias, interpret results relative to patient's use of biotin. Lab Interpretation Abnormal (test code = 53405-0) [facility]URINALYSIS2021-04-10 03:36:15 Test Item Value Reference Range Interpretation Comments APPEARANCE (test code = Hazy Clear A 1586675693) COLOR (test code = Yellow Yellow 9012851985) PH (test code = 4.8-8.0 0991981312) SP GRAVITY (test code = 1.003-1.030 5858050328) GLU U QUAL (test code = 500 mg/dL Normal A 6214360247) BLOOD (test code = Negative Negative 1015817725) KETONES (test code = Negative Negative 0136492499) PROTEIN (test code = Negative Negative 2887-8) UROBILIN (test code = Normal Normal 8371652985) BILIRUBIN (test code = Negative Negative 2096961307) NITRITE (test code = Positive Negative A 8439987797) LEUK JOSEFA (test code = 75/uL Negative A 5392889656) RBC/HPF (test code = See_Comment [Autom ated message] 3201736786) The system [employer] generated this result transmit anthony reference range : 0 - 3 HPF. The refe rence range was not u sed to interpret th is result as normal/abnormal . WBC/HPF (test code = See_Comment H [Autom ated message] 3337796178) The system [employer] generated this result transmit anthony reference range : 0 - 5 HPF. The refe rence range was not u sed to interpret th is result as normal/abnormal . BACTERIA (test code = Many Negative A 9013643401) MUCOUS (test code = Slight Negative LPF A 5828450618) SQ EPITH (test code = HPF 2872497123) YEAST BUD (test code = See_Comment H [Aut omated message] 8412751201) The system [employer] generated this result transmit anthony reference range : <=1 HPF. The refere nce range was not u sed to interpret th is result as normal/abnormal . Lab Interpretation (test Abnormal code = 05127-7) [facility]LIPASE2021-04-10 03:31:20 Test Item Value Reference Range Interpretation Comments LIPASE (test code = 4752778223) 121 U/L 0-220 Lab Interpretation (test code = Normal 60545-3) [facility] SoutheastCOM. METABOLIC PANEL (71634)2020-09-05 03:14:37 Test Item Value Reference Range Interpretation Comments NA (test code = 130 mmol/L 135-145 L 1654831658) K (test code = 3.3 mmol/L 3.5-5.0 L 6935612122) CL (test code = 90 mmol/L 98-108 L 9418385643) CO2 TOTAL (test code = 29 mmol/L 23-31 3344786197) AGAP (test code = 2-16 8938884711) BUN (test code = 13 mg/dL 7-23 1285776793) GLUCOSE (test code = 605 mg/dL 70-110 HH 7698657998) CREATININE (test code = 0.68 mg/dL 0.50-1.04 7763170280) TOTAL BILI (test code = 0.7 mg/dL 0.1-1.2 9942415017) CALCIUM (test code = 8.6 mg/dL 8.6-10.6 1126739637) T PROTEIN (test code = 7.3 g/dL 6.3-8.2 3720776151) ALBUMIN (test code = 4.3 g/dL 3.5-5.0 0897229643) ALK PHOS (test code = 138 U/L 34-122 H 9529011022) ALTv (test code = 23 U/L 5-35 1742-6) AST(SGOT) (test code = 24 U/L 13-40 8706073178) eGFR (test code = mL/min/1.73m2 7261975132) NISHA (test code = NISHA) Association of [...] tests). Lab Interpretation Abnormal (test code = 35543-8) [facility] WITH [id number] 03:03:56 Test Item Value Reference Range Interpretation Comments WBC (test code = See_Comment [Automated 1259-2) message] The sy stem which generated this result transmitted reference range : 4.30 - 11.10 10*3/?L. The reference range was not used to interpret this result as normal/abnormal . RBC (test code = See_Comment [Automated 795-8) message] The sy stem which generated this [...] RDW-SD (test code = 40.1 fL 39.0-49.9 04583-4) RDW-CV (test code = 12.7 % 12.0-15.5 788-0) PLT (test code = See_Comment H [Automated 777-3) message] The sy stem which generated this result transmitted reference range : 166 - 358 10*3/ ?L. The reference r chelsie was not used to interpret this result as normal/abnormal . MPV (test code = 11.0 fL 9.5-12.9 90538-9) NRBC/100 WBC (test See_Comment [Automat ed code = 0193684934) message] The system which generated this result transmitted reference range : 0.0 - 10.0 /100 WBCs. The refer ence range was not u sed to interpret th is result as normal/abnormal . NRBC x10^3 (test code <0.01 See_Comment [Auto mated = 3216674491) message] The s ystem which generated this result transmitted reference range : 10*3/?L. The reference range was not used to interpret this result as normal/abnormal . GRAN MAT (NEUT) % 66.6 % (test code = 770-8) IMM GRAN % (test code 0.40 % = 0832938231) LYMPH % (test code = 23.7 % 736-9) MONO % (test code = 6.1 % 5905-5) EOS % (test code = 2.7 % 713-8) BASO % (test code = 0.5 % 706-2) GRAN MAT x10^3(ANC) 5.00 10*3/uL 1.88-7.09 (test code = 4031254326) IMM GRAN x10^3 (test 0.03 10*3/uL 0.00-0.06 code = 0666389558) LYMPH x10^3 (test code 1.78 10*3/uL 1.32-3.29 = 731-0) MONO x10^3 (test code 0.46 10*3/uL 0.33-0.92 = 742-7) EOS x10^3 (test code = 0.20 10*3/uL 0.03-0.39 711-2) BASO x10^3 (test code 0.04 10*3/uL 0.01-0.07 = 704-7) Lab Interpretation Abnormal (test code = 71597-0) [facility] CARE VENOUS BLOOD [id number] 02:38:19 Test Item Value Reference Range Interpretation Comments PH (test code = 7.32-7.42 0916380645) PCO2 JUSTIN (test code = See_Comment [Auto mated message] 4865137236) The system [employer] generated this result transmitted ref erence range: 41 - 51 mmHg. The reference r chelsie was not used to interpret this result as normal/abnor mal. PO2 JUSTIN (test code = See_Comment [Autom ated message] 2891418020) The system [employer] generated this result transmitted ref erence range: 25 - 40 mmHg. The reference r chelsie was not used to interpret this result as normal/abnor mal. HCO3 JUSTIN (test code = See_Comment H [Auto mated message] 7498159101) The system [employer] generated this result transmitted ref erence range: 24 - 28 mEq/L. The reference r chelsie was not used to interpret this result as normal/abnor mal. AC VBE(BEAKER) (test mEq/L code = 5433692874) Lab Interpretation (test Abnormal code = 43021-7) [facility] GLUCOSE (AUTOMATED)2020-09-05 01:59:51 Test Item Value Reference Range Interpretation Comments POCT GLU (test code = 9309744639) 557 mg/dL 70-110 HH Lab Interpretation (test code = Abnormal 60493-5) [facility] HEMOGLOBIN A1C [id number] 21:16:00 Test Item Value Reference Range Interpretation Comments POCT HBA1C (test code = 4548-4) >14 4-6 A Lab Interpretation (test code = Abnormal 09338-7) [facility] HEMOGLOBIN A1C [id number] 21:16:00 Test Item Value Reference Range Interpretation Comments POCT HBA1C (test code = 4548-4) >14 4-6 A Lab Interpretation (test code = Abnormal 24846-2) [facility] [id number] 22:59:21XR LUMBAR SPINE 4 VW HISTORY: Female [...] the left kidney probablyrepresents a small renal calculus.[facility], [facility]iant Results Inft User - 05/08/2020 5:00 [...] the left kidney probablyrepresents a small renal calculus.[facility] HIPS 2 VW [id number] 22:34:44 Impression: 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 RL: ?[id number] Clinical indication: Severe acute on chronic hip [...] unremarkable. No radiopaque foreign bodies are identified. [facility], Radiant ResultsInft User - 05/08/2020 4:35 PM [...] hip joint space withoutevidence of fracture visualized.RL: [id number] [facility]PL[facility] [id number] 20:07:00 Test Item Value Reference Range Interpretation Comments C. trachomatis Nucleic Negative Negative Acid (test code = 54125-8) N. gonorrhoeae Nucleic Negative Negative Acid (test code = 48199-0) NISHA (test code = NISHA) Reliable results [...] clinician. Lab Interpretation Normal (test code = 80989-2) [facility]TRICHOMONAS AMPLIFIED [id number] 20:02:00 Test Item Value Reference Range Interpretation Comments Trichomonas Nucleic Negative Negative Acid (test code = 37547-2) NISHA (test code = NISHA) Reliable results [...] clinician. Lab Interpretation Normal (test code = 29318-2) [facility] - VAGINAL PATHOGENS BY NUCLEIC ACID [id number] 18:40:00 Test Item Value Reference Range Interpretation Comments Trichomonas vaginalis Negative Negative (test code = 2544429183) Nasrin species (test Positive Negative A code = 0838975078) Nasrin glabrata (test Positive Negative A code = 12649-1) Bacterial Vaginosis Positive Negative A (test code = 82624-3) NISHA (test code = NISHA) Reliable results [...] clinician. Lab Interpretation Abnormal (test code = 25499-4) [facility] W/O SPECIFIC [id number] 19:50:00 Test Item Value Reference Range Interpretation [...] code = 3257) neg Negative - [facility] [id number] 19:50:00 Test Item Value Reference Range Interpretation [...] code = 3257) neg Negative - Negative [facility] SPECIFIC [id number] 19:50:00 Test Item Value Reference Range Interpretation [...] code = 3257) neg Negative - Negative [facility] HEMOGLOBIN A1C [id number] 22:01:00 Test Item Value Reference Range Interpretation Comments POCT HBA1C (test code = 4548-4) >14.0 4-6 [facility] HEMOGLOBIN A1C [id number] 22:01:00 Test Item Value Reference Range Interpretation Comments POCT HBA1C (test code = 4548-4) >14.0 4-6 [facility] S[facility] MAM[facility] [id number] 22:41:31Examination:BI SCREENING MAMMOGRAM BILATERAL History:Patient is 49 [...] the study and agree with the resident's/fellow's report.[facility]2019-08-16 13:03:00 Test Item Value Reference Range Interpretation Comments POCT GLU (test code = 6707046349) 228 mg/dL 70-110 H Lab Interpretation (test code = Abnormal 05922-9) [facility]2020-03-20 10:40:00 Test Item Value Reference Range Interpretation Comments MAGNESIUM (test code = 3272150873) 4.7 mg/dL 1.7-2.4 H Lab Interpretation (test code = Abnormal 63926-1) [facility]OLIC PAN[facility] (NA, K, CL, CO2, GLUCOSE, BUN, CREATININE, CA)2019-08-16 10:36:00 Test Item Value Reference Range Interpretation Comments NA (test code = 135 mmol/L 135-145 2872315823) K (test code = 3.9 mmol/L 3.5-5 8695841992) CL (test code = 107 mmol/L 98-108 7993025181) CO2 TOTAL (test code = 22 mmol/L 23-31 L 1780269657) AGAP (test code = 2-16 3498553009) BUN (test code = 19 mg/dL 7-23 1516571430) GLUCOSE (test code = 236 mg/dL 70-110 H 2817433177) CREATININE (test code = 0.91 mg/dL 0.5-1.04 2062919412) CALCIUM (test code = 6.6 mg/dL 8.6-10.6 L 4164138098) eGFR Calculation mL/min/1.73m2 (Non-) (test code = 1976635864) eGFR Calculation mL/min/1.73m2 () (test code = 6151920846) NISHA (test code = NISHA) Association of [...] tests). Lab Interpretation Abnormal (test code = 20699-1) [facility] WITH [id number] 10:13:00 Test Item Value Reference Range Interpretation Comments WBC (test code = See_Comment H [Automated 8290-2) message] The sy stem which generated this [...] RDW-SD (test code = 41.6 fL 39-49.9 66533-2) RDW-CV (test code = 12.8 % 12-15.5 788-0) PLT (test code = See_Comment [Automated 777-3) message] The sy stem which generated this result transmitted reference range : 166 - 358 10*3/ ?L. The reference r chelsie was not used to interpret this result as normal/abnormal . MPV (test code = 10.6 fL 9.5-12.9 54409-3) NRBC/100 WBC (test See_Comment [Automat ed code = 9316269645) message] The system which generated this result transmitted reference range : 0.0 - 10.0 /100 WBCs. The refer ence range was not u sed to interpret th is result as normal/abnormal . NRBC x10^3 (test code <0.01 See_Comment [Auto mated = 7473747975) message] The s ystem which generated this result transmitted reference range : 10*3/?L. The reference range was not used to interpret this result as normal/abnormal . GRAN MAT (NEUT) % 77.9 % (test code = 770-8) IMM GRAN % (test code 0.80 % = 6988842572) LYMPH % (test code = 13.8 % 736-9) MONO % (test code = 6.8 % 5905-5) EOS % (test code = 0.3 % 713-8) BASO % (test code = 0.4 % 706-2) GRAN MAT x10^3(ANC) 8.66 10*3/uL 1.88-7.09 H (test code = 9514646544) IMM GRAN x10^3 (test 0.09 10*3/uL 0-0.06 H code = 9178528284) LYMPH x10^3 (test code 1.54 10*3/uL 1.32-3.29 = 731-0) MONO x10^3 (test code 0.76 10*3/uL 0.33-0.92 = 742-7) EOS x10^3 (test code = 0.03 10*3/uL 0.03-0.39 711-2) BASO x10^3 (test code 0.04 10*3/uL 0.01-0.07 = 704-7) Lab Interpretation Abnormal (test code = 05448-7) [facility] GLUCOSE (AUTOMATED)2019-08-16 09:54:00 Test Item Value Reference Range Interpretation Comments POCT GLU (test code = 0034353277) 218 mg/dL 70-110 H Lab Interpretation (test code = Abnormal 21840-9) [facility] GLUCOSE (AUTOMATED)2019-08-16 07:12:00 Test Item Value Reference Range Interpretation Comments POCT GLU (test code = 7069069909) 355 mg/dL 70-110 H Lab Interpretation (test code = Abnormal 07469-6) [facility] GLUCOSE (AUTOMATED)2019-08-16 05:06:00 Test Item Value Reference Range Interpretation Comments POCT GLU (test code = 6237324032) 457 mg/dL 70-110 HH Lab Interpretation (test code = Abnormal 64374-0) [facility] HEAD WO [id number] 00:55:12 No acute intracranial hemorrhage or mass [...] clear. IMPRESSIONNo acute intracranial hemorrhage or mass effect.[facility] GLUCOSE (AUTOMATED)2019-08-15 22:15:00 Test Item Value Reference Range Interpretation Comments POCT GLU (test code = 8664810890) 304 mg/dL 70-110 H Lab Interpretation (test code = Abnormal 81350-1) [facility]PTT2020-03-19 21:04:00 Test Item Value Reference Range Interpretation Comments APTT Patient (test code See_Comment L [Au tomated message] = 3173-2) The system [employer] generated this result transmitted ref erence range: 26 - 36 Seconds. The reference range was not used to int erpret this result as normal/abnormal . Lab Interpretation (test Abnormal code = 78180-2) [facility] GLUCOSE (AUTOMATED)2019-08-15 20:41:00 Test Item Value Reference Range Interpretation Comments POCT GLU (test code = 0756604536) 274 mg/dL 70-110 H Lab Interpretation (test code = Abnormal 40632-5) [facility] GLUCOSE (AUTOMATED)2019-08-15 17:10:00 Test Item Value Reference Range Interpretation Comments POCT GLU (test code = 7914821377) 308 mg/dL 70-110 H Lab Interpretation (test code = Abnormal 93042-7) [facility] ACT LOW [id number] 15:44:00 Test Item Value Reference Range Interpretation Comments ACTLR (test code = See_Comment H [Automat ed message] 1794746221) The system [employer] generated this result transmitted ref erence range: 89 - 169 Seconds. The reference range was not used to int erpret this result as normal/abnormal . Lab Interpretation (test Abnormal code = 07863-6) [facility] ACT LOW [id number] 15:22:00 Test Item Value Reference Range Interpretation Comments ACTLR (test code = See_Comment H [Automat ed message] 8927658097) The system [employer] generated this result transmitted ref erence range: 89 - 169 Seconds. The reference range was not used to int erpret this result as normal/abnormal . Lab Interpretation (test Abnormal code = 01201-0) [facility] ACT LOW [id number] 14:44:00 Test Item Value Reference Range Interpretation Comments ACTLR (test code = See_Comment H [Automat ed message] 5249995490) The system [employer] generated this result transmitted ref erence range: 89 - 169 Seconds. The reference range was not used to int erpret this result as normal/abnormal . Lab Interpretation (test Abnormal code = 28733-6) [facility] ACT LOW [id number] 14:26:00 Test Item Value Reference Range Interpretation Comments ACTLR (test code = See_Comment H [Automat ed message] 4871626698) The system [employer] generated this result transmitted ref erence range: 89 - 169 Seconds. The reference range was not used to int erpret this result as normal/abnormal . Lab Interpretation (test Abnormal code = 41455-1) [facility] METABOLIC PANEL (NA, K, CL, CO2, GLUCOSE, BUN, CREATININE, CA)2019-08-15 11:06:00 Test Item Value Reference Range Interpretation Comments NA (test code = 134 mmol/L 135-145 L 2651394199) K (test code = 4.3 mmol/L 3.5-5 3074479121) CL (test code = 105 mmol/L 98-108 6238920218) CO2 TOTAL (test code = 22 mmol/L 23-31 L 6173237219) AGAP (test code = 2-16 4401263516) BUN (test code = 21 mg/dL 7-23 2759792922) GLUCOSE (test code = 410 mg/dL 70-110 H 9150324972) CREATININE (test code = 0.92 mg/dL 0.5-1.04 8957244790) CALCIUM (test code = 7.5 mg/dL 8.6-10.6 L 9124647483) eGFR Calculation mL/min/1.73m2 (Non-) (test code = 6850414476) eGFR Calculation mL/min/1.73m2 () (test code = 2473702754) NISHA (test code = NISHA) Association of [...] tests). Lab Interpretation Abnormal (test code = 28182-4) [facility] 11:06:00 Test Item Value Reference Range Interpretation Comments MAGNESIUM (test code = 3475548436) 1.6 mg/dL 1.7-2.4 L Lab Interpretation (test code = Abnormal 90604-6) [facility] (for use with Heparin Practice Guideline). Note: Draw and Send all Lab STAT.2019-08-15 10:47:00 Test Item Value Reference Range Interpretation Comments APTT Patient (test code See_Comment H [Au tomated message] = 3173-2) The system [employer] generated this result transmitted ref erence range: 26 - 36 Seconds. The reference range was not used to int erpret this result as normal/abnormal . Lab Interpretation (test Abnormal code = 22846-1) [facility] WITH [id number] 10:46:00 Test Item Value Reference Range Interpretation Comments WBC (test code = See_Comment [Automated 8790-2) message] The sy stem which generated this [...] RDW-SD (test code = 39.1 fL 39-49.9 46244-4) RDW-CV (test code = 12.4 % 12-15.5 788-0) PLT (test code = See_Comment [Automated 777-3) message] The sy stem which generated this result transmitted reference range : 166 - 358 10*3/ ?L. The reference r chelsie was not used to interpret this result as normal/abnormal . MPV (test code = 10.9 fL 9.5-12.9 64887-5) NRBC/100 WBC (test See_Comment [Automat ed code = 5935618476) message] The system which generated this result transmitted reference range : 0.0 - 10.0 /100 WBCs. The refer ence range was not u sed to interpret th is result as normal/abnormal . NRBC x10^3 (test code <0.01 See_Comment [Auto mated = 7195946973) message] The s ystem which generated this result transmitted reference range : 10*3/?L. The reference range was not used to interpret this result as normal/abnormal . GRAN MAT (NEUT) % 80.6 % (test code = 770-8) IMM GRAN % (test code 0.50 % = 2295616011) LYMPH % (test code = 12.5 % 736-9) MONO % (test code = 5.8 % 5905-5) EOS % (test code = 0.4 % 713-8) BASO % (test code = 0.2 % 706-2) GRAN MAT x10^3(ANC) 8.94 10*3/uL 1.88-7.09 H (test code = 1790869096) IMM GRAN x10^3 (test 0.06 10*3/uL 0-0.06 code = 0591946092) LYMPH x10^3 (test code 1.39 10*3/uL 1.32-3.29 = 731-0) MONO x10^3 (test code 0.64 10*3/uL 0.33-0.92 = 742-7) EOS x10^3 (test code = 0.04 10*3/uL 0.03-0.39 711-2) BASO x10^3 (test code <0.03 0.01-0.07 = 704-7) Lab Interpretation Abnormal (test code = 82423-6) [facility] GLUCOSE (AUTOMATED)2019-08-15 09:48:00 Test Item Value Reference Range Interpretation Comments POCT GLU (test code = 6296300164) 319 mg/dL 70-110 H Lab Interpretation (test code = Abnormal 67268-9) [facility] GLUCOSE (AUTOMATED)2019-08-15 06:35:00 Test Item Value Reference Range Interpretation Comments POCT GLU (test code = 6638760276) 479 mg/dL 70-110 HH Lab Interpretation (test code = Abnormal 12578-4) [facility] GLUCOSE (AUTOMATED)2019-08-15 03:10:00 Test Item Value Reference Range Interpretation Comments POCT GLU (test code = 7065213644) 450 mg/dL 70-110 HH Lab Interpretation (test code = Abnormal 41691-8) [facility] (for use with Heparin Practice Guideline). Note: Draw and Send all Lab STAT.2019-08-15 02:31:00 Test Item Value Reference Range Interpretation Comments APTT Patient (test code See_Comment HH [Au tomated message] = 3173-2) The system [employer] generated this result transmitted ref erence range: 26 - 36 Seconds. The reference range was not used to int erpret this result as normal/abnormal . Lab Interpretation (test Abnormal code = 21850-4) [facility] METABOLIC PANEL (NA, K, CL, CO2, GLUCOSE, BUN, CREATININE, CA)2019-08-15 02:30:00 Test Item Value Reference Range Interpretation Comments NA (test code = 131 mmol/L 135-145 L 1008497604) K (test code = 4.6 mmol/L 3.5-5 3438358583) CL (test code = 102 mmol/L 98-108 9871083625) CO2 TOTAL (test code = 21 mmol/L 23-31 L 7408899080) AGAP (test code = 2-16 0771011317) BUN (test code = 21 mg/dL 7-23 6806091250) GLUCOSE (test code = 479 mg/dL 70-110 HH 0668830477) CREATININE (test code = 1.08 mg/dL 0.5-1.04 H 3262822780) CALCIUM (test code = 7.3 mg/dL 8.6-10.6 L 2903084432) eGFR Calculation mL/min/1.73m2 (Non-) (test code = 2170772887) eGFR Calculation mL/min/1.73m2 () (test code = 0865409911) NISHA (test code = NISHA) Association of [...] tests). Lab Interpretation Abnormal (test code = 15459-2) [facility] GLUCOSE (AUTOMATED)2019-08-15 01:59:00 Test Item Value Reference Range Interpretation Comments POCT GLU (test code = 7360447760) 471 mg/dL 70-110 HH Lab Interpretation (test code = Abnormal 17476-7) [facility] GLUCOSE (AUTOMATED)2019-08-14 22:49:00 Test Item Value Reference Range Interpretation Comments POCT GLU (test code = 2524934682) 399 mg/dL 70-110 H Lab Interpretation (test code = Abnormal 44035-2) [facility] GLUCOSE (AUTOMATED)2019-08-14 20:45:00 Test Item Value Reference Range Interpretation Comments POCT GLU (test code = 5246321380) 473 mg/dL 70-110 HH Lab Interpretation (test code = Abnormal 38848-3) [facility] (for use with Heparin Practice Guideline). Note: Draw and Send all Lab STAT.2019-08-14 19:52:00 Test Item Value Reference Range Interpretation Comments APTT Patient (test code = See_Comment [ Automated message] 3173-2) The system [employer] generated this result transmitted ref erence range: 26 - 36 Seconds. The re ference range was not u sed to interpret this result as normal/abnor mal. Lab Interpretation (test Normal code = 59295-2) [facility] GLUCOSE (AUTOMATED)2019-08-14 17:24:00 Test Item Value Reference Range Interpretation Comments POCT GLU (test code = 421 mg/dL 70-110 H Notifi ed Provider 5846465348) Lab Interpretation (test Abnormal code = 85291-1) [facility] - INFLUENZA A B RSV [id number] 16:21:00 Test Item Value Reference Range Interpretation Comments Influenza A virus by PCR (test code Negative Negative = 87380-2) Influenza B virus by PCR (test code Negative Negative = 22701-4) RSV by PCR (test code = 85149-1) Negative Negative Lab Interpretation (test code = Normal 38174-6) [facility]2019-08-14 14:00:00 Test Item Value Reference Range Interpretation Comments POCT GLU (test code = 1713113502) 314 mg/dL 70-110 H Lab Interpretation (test code = Abnormal 63012-8) [facility] METABOLIC PANEL (NA, K, CL, CO2, GLUCOSE, BUN, CREATININE, CA)2019-08-14 11:02:00 Test Item Value Reference Range Interpretation Comments NA (test code = 135 mmol/L 135-145 2920212282) K (test code = 4.4 mmol/L 3.5-5 7394507446) CL (test code = 106 mmol/L 98-108 7362070770) CO2 TOTAL (test code = 23 mmol/L 23-31 5862467444) AGAP (test code = 2-16 3213731049) BUN (test code = 15 mg/dL 7-23 9960472417) GLUCOSE (test code = 273 mg/dL 70-110 H 4040308466) CREATININE (test code = 1.04 mg/dL 0.5-1.04 9475589918) CALCIUM (test code = 7.5 mg/dL 8.6-10.6 L 3369213746) eGFR Calculation mL/min/1.73m2 (Non-) (test code = 2093826306) eGFR Calculation mL/min/1.73m2 () (test code = 1524243908) NISHA (test code = NISHA) Association of [...] tests). Lab Interpretation Abnormal (test code = 99010-4) [facility] 11:02:00 Test Item Value Reference Range Interpretation Comments MAGNESIUM (test code = 3263554353) 1.6 mg/dL 1.7-2.4 L Lab Interpretation (test code = Abnormal 43326-2) [facility] (for use with Heparin Practice Guideline). Note: Draw and Send all Lab STAT.2019-08-14 10:34:00 Test Item Value Reference Range Interpretation Comments APTT Patient (test code = See_Comment [ Automated message] 3173-2) The system [employer] generated this result transmitted ref erence range: 26 - 36 Seconds. The re ference range was not u sed to interpret this result as normal/abnor mal. Lab Interpretation (test Normal code = 47297-1) [facility] WITH [id number] 10:28:00 Test Item Value Reference Range Interpretation Comments WBC (test code = See_Comment [Automated 4790-2) message] The sy stem which generated this result transmitted reference range : 4.30 - 11.10 10*3/?L. The reference range was not used to interpret this result as normal/abnormal . RBC (test code = See_Comment [Automated 739-8) message] The sy stem which generated this [...] RDW-SD (test code = 41.0 fL 39-49.9 85514-9) RDW-CV (test code = 12.6 % 12-15.5 788-0) PLT (test code = See_Comment [Automated 777-3) message] The sy stem which generated this result transmitted reference range : 166 - 358 10*3/ ?L. The reference r chelsie was not used to interpret this result as normal/abnormal . MPV (test code = 10.3 fL 9.5-12.9 98034-9) NRBC/100 WBC (test See_Comment [Automat ed code = 9442015905) message] The system which generated this result transmitted reference range : 0.0 - 10.0 /100 WBCs. The refer ence range was not u sed to interpret th is result as normal/abnormal . NRBC x10^3 (test code <0.01 See_Comment [Auto mated = 5972713711) message] The s ystem which generated this result transmitted reference range : 10*3/?L. The reference range was not used to interpret this result as normal/abnormal . GRAN MAT (NEUT) % 63.5 % (test code = 770-8) IMM GRAN % (test code 0.30 % = 7555215299) LYMPH % (test code = 19.9 % 736-9) MONO % (test code = 6.3 % 5905-5) EOS % (test code = 9.7 % 713-8) BASO % (test code = 0.3 % 706-2) GRAN MAT x10^3(ANC) 6.48 10*3/uL 1.88-7.09 (test code = 2407546017) IMM GRAN x10^3 (test 0.03 10*3/uL 0-0.06 code = 7410761354) LYMPH x10^3 (test code 2.03 10*3/uL 1.32-3.29 = 731-0) MONO x10^3 (test code 0.64 10*3/uL 0.33-0.92 = 742-7) EOS x10^3 (test code = 0.99 10*3/uL 0.03-0.39 H 711-2) BASO x10^3 (test code 0.03 10*3/uL 0.01-0.07 = 704-7) Lab Interpretation Abnormal (test code = 77054-3) [facility] GLUCOSE (AUTOMATED)2019-08-14 01:29:00 Test Item Value Reference Range Interpretation Comments POCT GLU (test code = 2106173187) 236 mg/dL 70-110 H Lab Interpretation (test code = Abnormal 38881-6) [facility] (for use with Heparin Practice Guideline). Note: Draw and Send all Lab STAT.2019-08-13 23:18:00 Test Item Value Reference Range Interpretation Comments APTT Patient (test code = See_Comment [ Automated message] 3173-2) The system [employer] generated this result transmitted ref erence range: 26 - 36 Seconds. The re ference range was not u sed to interpret this result as normal/abnor mal. Lab Interpretation (test Normal code = 31467-8) [facility] GLUCOSE (AUTOMATED)2019-08-13 23:09:00 Test Item Value Reference Range Interpretation Comments POCT GLU (test code = 2561875982) 305 mg/dL 70-110 H Lab Interpretation (test code = Abnormal 37725-5) [facility] GLUCOSE (AUTOMATED)2019-08-13 19:29:00 Test Item Value Reference Range Interpretation Comments POCT GLU (test code = 5566411520) 310 mg/dL 70-110 H Lab Interpretation (test code = Abnormal 07313-2) [facility] [id number] 14:04:00 Test Item Value Reference Range Interpretation Comments TROPONIN I (test 0.012 ng/mL See_Comment [Automated code = 1910565212) message] The system which generated this result [...] ? Lab Interpretation Normal (test code = 57125-3) [facility]2019-08-13 13:16:00 Test Item Value Reference Range Interpretation Comments POCT GLU (test code = 2241455669) 281 mg/dL 70-110 H Lab Interpretation (test code = Abnormal 02843-8) [facility] WITH [id number] 12:20:00 Test Item Value Reference Range Interpretation Comments WBC (test code = See_Comment H [Automated 2390-2) message] The sy stem which generated this result transmitted reference range : 4.30 - 11.10 10*3/?L. The reference range was not used to interpret this result as normal/abnormal . RBC (test code = See_Comment [Automated 929-8) message] The sy stem which generated this [...] RDW-SD (test code = 40.6 fL 39-49.9 64688-0) RDW-CV (test code = 12.7 % 12-15.5 788-0) PLT (test code = See_Comment [Automated 777-3) message] The sy stem which generated this result transmitted reference range : 166 - 358 10*3/ ?L. The reference r chelsie was not used to interpret this result as normal/abnormal . MPV (test code = 10.7 fL 9.5-12.9 07312-1) NRBC/100 WBC (test See_Comment [Automat ed code = 9794000677) message] The system which generated this result transmitted reference range : 0.0 - 10.0 /100 WBCs. The refer ence range was not u sed to interpret th is result as normal/abnormal . NRBC x10^3 (test code <0.01 See_Comment [Auto mated = 0472522480) message] The s ystem which generated this result transmitted reference range : 10*3/?L. The reference range was not used to interpret this result as normal/abnormal . GRAN MAT (NEUT) % 71.8 % (test code = 770-8) IMM GRAN % (test code 0.50 % = 8379238937) LYMPH % (test code = 12.3 % 736-9) MONO % (test code = 6.9 % 5905-5) EOS % (test code = 8.0 % 713-8) BASO % (test code = 0.5 % 706-2) GRAN MAT x10^3(ANC) 9.08 10*3/uL 1.88-7.09 H (test code = 3025471221) IMM GRAN x10^3 (test 0.06 10*3/uL 0-0.06 code = 7844859275) LYMPH x10^3 (test code 1.56 10*3/uL 1.32-3.29 = 731-0) MONO x10^3 (test code 0.87 10*3/uL 0.33-0.92 = 742-7) EOS x10^3 (test code = 1.01 10*3/uL 0.03-0.39 H 711-2) BASO x10^3 (test code 0.06 10*3/uL 0.01-0.07 = 704-7) Lab Interpretation Abnormal (test code = 18562-8) [facility]2020-[facility] 09:19:00 Test Item Value Reference Range Interpretation Comments MAGNESIUM (test code = 5441965089) 1.5 mg/dL 1.7-2.4 L Lab Interpretation (test code = Abnormal 86674-3) [facility] CHEST 1 [id number] 08:54:25Impression: Moderate cardiomegaly without acute pulmonary process. Status post mediansternotomy. RL: 460 AFC: [id number] Indication: Chest pain Comparison: None Findings: Single AP view of the chest. The cardiopericardial silhouette is moderately enlarged. The patient is status post median sternotomy. Thelungs are clear bilaterally. The visualized bony thorax is intact. [facility], Radiant Results Inft User - 08/13/2019 3:55 AM CDTIndication: Chest painComparison: NoneFindings: Single AP view of the chest. The cardiopericardial silhouette ismoderately enlarged. The patient is status post median sternotomy. Thelungs are clear bilaterally. The visualized bony thorax is intact.IMPRESSIONImpression:Moderate cardiomegaly without acute pulmonary process. Status post mediansternotomy.RL: 460AFC: [id number] signed by Gemini Martins MD, PhD at 08/13/2019 3:54 AMUnMedical Arts HospitalGlycosylated Hemoglobin (A1C)2019-08-13 07:12:00 Test Item Value Reference Range Interpretation Comments HGB A1C (test code = 4548-4) 10.8 % 4-6 H Lab Interpretation (test code = Abnormal 17129-6) [facility]-TERMINAL [id number] 06:39:00 Test Item Value Reference Range Interpretation Comments NT-proBNP (test code 384 pg/mL See_Comment H [Autom ated = 5729490455) message] The system which generated this result transmitted reference range : <=125. The reference range was not used to interpret this result as normal/abnormal . NISHA (test code = NISHA) Biotin has been reported to cause a negative bias, interpret results relative to patient's use of biotin. Lab Interpretation Abnormal (test code = 46067-9) [facility] [id number] 06:39:00 Test Item Value Reference Range Interpretation Comments TROPONIN I (test 0.008 ng/mL See_Comment [Automated code = 7738781315) message] The system which generated this result [...] ? Lab Interpretation Normal (test code = 50466-5) [facility] (NA, K, CL, CO2, GLUCOSE, BUN, CREATININE, CA)2019-08-13 06:35:00 Test Item Value Reference Range Interpretation Comments NA (test code = 134 mmol/L 135-145 L 1941054111) K (test code = 4.1 mmol/L 3.5-5 7976741475) CL (test code = 102 mmol/L 98-108 2674487279) CO2 TOTAL (test code = 22 mmol/L 23-31 L 5002374944) AGAP (test code = 2-16 8046723842) BUN (test code = 23 mg/dL 7-23 4821666369) GLUCOSE (test code = 324 mg/dL 70-110 H 9648009198) CREATININE (test code = 1.07 mg/dL 0.5-1.04 H 6506644423) CALCIUM (test code = 8.4 mg/dL 8.6-10.6 L 6550377922) eGFR Calculation mL/min/1.73m2 (Non-) (test code = 9122918811) eGFR Calculation mL/min/1.73m2 () (test code = 2818113067) NISHA (test code = NISHA) Association of [...] tests). Lab Interpretation Abnormal (test code = 75768-4) [facility]aPTT2020-03-17 06:07:00 Test Item Value Reference Range Interpretation Comments APTT Patient (test code = See_Comment [ Automated message] 3173-2) The system [employer] generated this result transmitted ref erence range: 26 - 36 Seconds. The re ference range was not u sed to interpret this result as normal/abnor mal. Lab Interpretation (test Normal code = 92720-6) [facility] SoutheastProthrombin Time / [id number] 06:07:00 Test Item Value Reference Range Interpretation Comments PROTIME PATIENT (test See_Comment [Auto mated message] code = 5964-2) The system [employer] generated this result transmitted ref erence range: 10.1 - 1 2.6 Seconds. The re ference range was not u sed to interpret this result as normal/abnor mal. INR (test code = 6301-6) Nor mal INR <1.1; Warfarin Therap eutic range 2.0 to 3. 0 or 2.5 to 3.5, dep ending upon the indica tions. Lab Interpretation (test Normal code = 40676-2) [facility]"
[2021-05-25 19:30] LABS: SARS-COV-2 RT PCR NEGATIVE (NEGATIVE)
--- NOTE | 2021-05-25 20:18 | RAD REPORT ---
EXAM DESCRIPTION: RAD - Chest Single View - 05/25/2021 7:57 pm CLINICAL HISTORY: COUGH COMPARISON: May 22 TECHNIQUE: AP portable chest image was obtained 05/25/2021 7:57 pm . FINDINGS: Lung volumes are low and patient is in lordotic position. No peripheral mass or consolidat ion. Interstitial pattern accentuated by the low lung volumes. Upper lobe vasculature within normal l imits. Heart size normal range for exam limitations. No measurable pleural effusion and no pneumothor ax. No acute bony abnormality seen. No acute aortic findings suspected. IMPRESSION: No acute cardiopulmonary process. No significant failure or volume overload. Interstitial pattern accentuated by low lung volumes poten tially masking minimal interstitial edema or infiltrate.
--- NOTE | 2021-05-25 20:36 | ER ---
Nurse's Notes [facility] Name: Karen Shah Age: 51 yrs Sex: Female : 1970 Arrival Date: 05/25/2021 Time: 17:38 Bed Waiting Private MD: Diagnosis: Acute upper respiratory infection, unspecified Presentation: 05/25 18:28 Chief complaint: Patient states: Cough, runny nose, NGUYEN for 1 day. Coronavirus screen: ll1 Client denies travel out of the [place] in the last 14 days. congestion, cough unrelated to allergies, fatigue, headache, Client presents with at least one sign or symptom that may indicate coronavirus-19. Standard/surgical mask placed on the client. Ebola Screen: Patient denies travel to an Ebola-affected area in the 21 days before illness onset. Initial Sepsis Screen: Does the patient meet any 2 criteria? HR > 90 bpm. No. Patient's initial sepsis screen is negative. Does the patient have a suspected source of infection? Yes: Productive cough/pneumonia. Risk Assessment: Do you want to hurt yourself or someone else? Patient reports no desire to harm self or others. Onset of symptoms was May 22, 2021. 18:28 Method Of Arrival: Wheelchair 1 18:28 Acuity: ARIEL 4 ll1 Historical: - Allergies: 18:30 Adhesives; ll1 18:30 Toradol; ll1 18:30 tramadol; ll1 - PMHx: 18:30 angina pectoris; CAD; Cerebrovascular accident; Cerebrovascular accident; CVA; Diabetes ll1 - IDDM; High Cholesterol; Hypertension; Myocardial infarction; Right AKA; Seizures; - PSHx: 18:30 CABG x 2; section; right AKA; ll1 - Immunization history:: Client reports receiving the 2nd dose of the Covid vaccine. - Social history:: Smoking status: Patient reports the use of cigarette tobacco products, smokes one pack cigarettes per day. Vital Signs: 18:28 BP 138 / 89; Pulse 106; Resp 17; Temp 97.8; Pulse Ox 97% on R/A; Weight 64.41 kg; ll1 Height 5 ft. 4 in. (162.56 cm); Pain 10/10; 18:28 Body Mass Index 24.37 (64.41 kg, 162.56 cm) 1 ED Course: 17:38 Patient arrived in ED. mr 18:30 Becca Chandra FNP-C [facility]. kb 18:30 Anatoly Ryan MD is Attending Physician. kb 18:30 Triage completed. ll1 18:31 Arm band placed on. ll1 19:57 Chest Single View XRAY In Process Unspecified. EDMS Administered Medications: No medications were administered Outcome: 20:35 Discharge ordered by . kb 22:59 Patient left the ED. kb Signatures: Dispatcher [employer] EDMS Becca Chandra FNP-C FNP-Thea Sanchez mr SteenFlaco, RN RN ll1
--- NOTE | 2021-05-25 20:36 | EDPHYS ---
Physician Documentation [facility] Name: Karen Shah Age: 51 yrs Sex: Female : 1970 Arrival Date: 05/25/2021 Time: 17:38 Bed Waiting Private MD: ED Physician Anatoly Ryan HPI: 05/25 21:32 This 51 yrs old Female presents to ER via Wheelchair with complaints of Pain kb All Over. 21:32 The patient or guardian reports cough. Onset: The symptoms/episode began/occurred kb today. Severity of symptoms: At their worst the symptoms were mild, in the emergency department the symptoms are unchanged. Modifying factors: The symptoms are alleviated by nothing, the symptoms are aggravated by nothing. Associated signs and symptoms: Pertinent positives: rhinorrhea, Pertinent negatives: chest pain, diarrhea, ear ache, fever, nausea, sore throat, vomiting. The patient has not experienced similar symptoms in the past. The patient has not recently seen a physician. Pt reports cough, runny nose and headache that started this morning. Historical: - Allergies: 18:30 Adhesives; ll1 18:30 Toradol; ll1 18:30 tramadol; ll1 - PMHx: 18:30 angina pectoris; CAD; Cerebrovascular accident; Cerebrovascular accident; CVA; Diabetes ll1 - IDDM; High Cholesterol; Hypertension; Myocardial infarction; Right AKA; Seizures; - PSHx: 18:30 CABG x 2; section; right AKA; ll1 - Immunization history:: Client reports receiving the 2nd dose of the Covid vaccine. - Social history:: Smoking status: Patient reports the use of cigarette tobacco products, smokes one pack cigarettes per day. ROS: 21:32 Abdomen/GI: Negative for abdominal pain, nausea, vomiting, diarrhea, and constipation. kb 21:32 Constitutional: Positive for body aches, Negative for chills, fatigue, fever, malaise, poor PO intake. 21:32 ENT: Positive for rhinorrhea. 21:32 Respiratory: Positive for cough, Negative for dyspnea on exertion, hemoptysis, orthopnea, pleurisy, shortness of breath, sputum production, wheezing. 21:32 Neuro: Positive for headache. 21:32 All other systems are negative. Exam: 21:32 Constitutional: This is a well developed, well nourished patient who is awake, alert, kb and in no acute distress. Head/Face: Normocephalic, atraumatic. ENT: Moist Mucous membranes Cardiovascular: Regular rate and rhythm with a normal S1 and S2. No gallops, murmurs, or rubs. No pulse deficits. Respiratory: Respirations even and unlabored. No increased work of breathing. Talking in full sentences Skin: Warm, dry with normal turgor. Normal color. MS/ Extremity: Pulses equal, no cyanosis. Neurovascular intact. Full, normal range of motion. Neuro: Awake and alert, GCS 15, oriented to person, place, time, and situation. Moves all extremities. Normal gait. Psych: Awake, alert, with orientation to person, place and time. Behavior, mood, and affect are within normal limits. Vital Signs: 18:28 BP 138 / 89; Pulse 106; Resp 17; Temp 97.8; Pulse Ox 97% on R/A; Weight 64.41 kg; ll1 Height 5 ft. 4 in. (162.56 cm); Pain 10/10; 18:28 Body Mass Index 24.37 (64.41 kg, 162.56 cm) ll1 MDM: 18:30 Patient medically screened. kb 21:32 Data reviewed: vital signs, nurses notes. Data interpreted: Pulse oximetry: on room air kb is 97 %. Interpretation: normal. Counseling: I had a detailed discussion with the patient and/or guardian regarding: the historical points, exam findings, and any diagnostic results supporting the discharge/admit diagnosis, lab results, radiology results, the need for outpatient follow up, a family practitioner, to return to the emergency department if symptoms worsen or persist or if there are any questions or concerns that arise at home. 05/25 18:30 Order name: COVID-19/FLU A+B (Document "Date of Onset" if Symptomatic) kb 05/25 18:31 Order name: COVID-19/FLU A+B; Complete Time: 19:31 EDMS 05/25 18:30 Order name: Chest Single View XRAY; Complete Time: 20:25 kb Administered Medications: No medications were administered Disposition: 05/26 07:32 I agree with the assessment and plan of care. kdr 07:32 Co-signature as Attending Physician, Anatoly Ryan MD. kdr Disposition Summary: 05/25/21 20:35 Discharge Ordered Location: Home kb Condition: Stable kb Diagnosis - Acute upper respiratory infection, unspecified kb Followup: kb - With: Emergency Department - When: As needed - Reason: Worsening of condition Followup: kb - With: Private Physician - When: 2 - 3 days - Reason: Recheck today's complaints, Continuance of care, Re-evaluation by your physician Discharge Instructions: - Discharge Summary Sheet kb - Upper Respiratory Infection, Adult, [id number] kb - Viral Respiratory Infection, [id number] kb Forms: - Medication Reconciliation Form kb - Thank You Letter kb - Antibiotic Education kb - Prescription Opioid Use kb Signatures: Dispatcher [employer] EDMS Becca Chandra, PHOTOGRAPHER PORTRAIT-C PHOTOGRAPHER PORTRAIT-Anatoly Wick MD MD kdr Lewis, Lynsay RN RN ll1
[2021-05-25 23:06] VITALS: BP 138/89; TEMP 97.8; O2SAT 97
== END 2021-05-25 22:59 | disposition home or self-care (01) ==
LOC: ER 17:32
DX: J06.9 Acute upper respiratory infection, unspecified (principal); F17.210 Nicotine dependence, cigarettes, uncomplicated; I25.10 Atherosclerotic heart disease of native coronary artery without angina pectoris; Z86.73 Personal history of transient ischemic attack (TIA), and cerebral infarction without residual deficits; E11.9 Type 2 diabetes mellitus without complications; I10 Essential (primary) hypertension; Z20.822 Contact with and (suspected) exposure to COVID-19
CPT/HCPCS: 0240U; 71045; 99282

== ENCOUNTER 2021-06-03 18:39 | Emergency (ER) | payer OTHER ==
--- OUTSIDE RECORDS SUMMARY | 2021-06-03 19:03 | XMS REPORT | Continuity of Care Document ---
:1970 Author Organization [facility] t Address [address] [place] [address] Care Team Providers Name Role Phone Igor BROWN, Bennie Primary Care Physician Michael VILLEGAS Attending Clinician Unavailable IGOR, Bennie Attending Clinician Unavailable Igor BROWN, Bennie Attending [...] Attending Clinician Hosea BROWN, Kyle Attending Clinician Trace BROWN, A Attending Clinician Pcp, Does [...] Expiration Date Vero neal MEDICARE PART A [id number] 2017 \\T\\ B 00:00:00 Problems Condition Condition Condition Status Onset Resolution Last Treating Co mments Source Name Details Category Date Date Treatment Clinician Date UTI UTI Disease Active Univers (urinary (urinary 8-20 ity of tract tract 00:00: [place] infection) infection) 00 Mi dical Branch Dizziness Dizziness Disease Active Uni vers 8-20 ity of 00:00: [place] 00 Medical Branch Weakness Weakness Disease Active Unive rs 8-20 ity of 00:00: [place] 00 [facility] Branch CAD in CAD in Disease Active Univers [place] 7-05 ity of artery artery 00:00: [place] [facility] Hypoglycem Hypoglycem Disease Active U nivers ia ia 6-11 ity of 00:00: [place] 00 [facility] 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 5-06 it y of on on 00:00: [place] [facility] Poor Poor Disease Active Univers [...] 00:00: [place] involving involving 00 Medi [place] Branch coronary coronary artery of artery of [place] heart heart without without angina angina pectoris [...] 00:00: [place] involving involving 00 Medi [place] Branch coronary coronary artery of artery of [place] heart heart without without angina angina pectoris pectoris PAD PAD Disease Active Univers (periphera (periphera 3-09 it y of l artery l artery 00:00: [place] disease) disease) 00 Medica l Branch GARY GARY Disease Active Overview: Univer s (stress (stress 02-02 Formattin ity o f urinary urinary 00:00: g of this [place] incontinen incontinen 00 note Me dical ce, ce, might be Branch female) female) different from the original. Added automatic ally from request for surgery [id number] GERD GERD Disease Active Univers (gastroeso (gastroeso it y of phageal phageal [place] reflux reflux Medical disease) disease) Branch DM DM Disease Active Univers (diabetes (diabetes ity of mellitus) mellitus) [facility] [place] [facility] Depression Depression Disease Active U nivers ity of [facility] CVA CVA Disease Active Univers (cerebral (cerebral ity of vascular vascular [place] accident) accident) [facility] CHF CHF Disease Active Univers (congestiv (congestiv it y of e heart e heart [place] failure) failure) [facility] Anxiety Anxiety Disease Active Univers ity of [facility] Angina Angina Disease Active Univers pectoris pectoris ity of [facility] H/O right H/O right Disease Active Uni vers coronary coronary ity of artery artery [place] stent stent Medical placement placement Bran ch Hyperlipid Hyperlipid Disease Active U nivers emia, emia, ity of unspecifie [place]specifie [place] d Medical hyperlipid hyperlipid Br anch emia type emia type Essential Essential Disease Active Uni vers hypertensi hypertensi it y [facility], [facility] Hx of CABG Hx of CABG Disease Active U nivers ity of [facility] Migraines Migraines Disease Active Uni vers ity of [facility] Seizures Seizures Disease Active Unive rs ity of [facility] Unilateral Unilateral Disease Active U nivers AKA, right AKA, right it y of [facility] High High Disease Active Univers cholestero cholestero it y of l l [facility] HTN HTN Disease Active Univers (hypertens (hypertens it y of ion) ion) [facility] Unilateral Unilateral Disease Active U nivers AKA, right AKA, right it y of [facility] Unilateral Unilateral Disease Active U nivers AKA, right AKA, right it y of [facility] History of History of Problem Active C [...] [facility] Chronic Chronic Problem Active [facility] pain pain [facility] - disorder disorder [facility]ori a l [facility] ent Clinics assisted assisted Problem Active [facility] current current [facility] - use of use of Memoria insulin insulin l [facility] Neuropathy Neuropathy Problem Active [facility] Depression Depression Problem Active [facility] with with [facility] - anxiety anxiety Memoria l [facility] HTN HTN Problem Active [facility] (hypertens (hypertens Charley kes - ion), ion), Memoria benign benign l [facility]ics Seizures Seizures Problem Active [facility] Coronary Coronary Problem Active [facility] t artery artery [facility] - disease disease Memoria involving involving l coronary coronary Outpat i bypass bypass ent graft of graft of Clinic s [place] heart with heart with angina angina pectoris pectoris Dependent Dependent Problem Active [facility] on on [facility] - wheelchair wheelchair Me moria l [facility]ics History of History of Problem Active [facility] right right [facility] - above knee above knee Me moria amputation amputation l [facility] Allergies, Adverse Reactions, [...] History of tobacco Cigarette Smoker [facility] Exposure to Not sure [place] of SARS-CoV-2 (event) [facility] Alcohol intake 2021-02-12 2021-02-12 Ex-drinker [facility] 00:00:00 00:00:00 (finding) [facility] Education 2021-01-15 2021-01-15 12 [facility] 00:00:00 00:00:00 [place] [facility] History SDOH 2020-05-08 2020-05-08 99 University o f Alcohol Frequency 00:00:00 00:00:00 [facility] SDOH 2020-05-08 2020-05-08 99 University o f Alcohol Std Drinks 00:00:00 00:00:00 [facility] Branch History [facility] 2020-05-08 2020-05-08 99 [place] o f Alcohol Binge 00:00:00 00:00:00 [facility] al Branch Tobacco Comment 2020-04-03 2020-04-03 smoking since 12 Uni versity of 00:00:00 00:00:00 years old [facility] Alcohol Comment 2019-10-11 2019-10-11 rare Universit y of 00:00:00 00:00:00 [facility] Cigarettes smoked 2018-02-21 2018-02-21 Univers ity of current (pack per 00:00:00 00:00:00 [facility] ) - Reported Branch Tobacco use and 2018-02-21 2018-02-21 Never used Universit y of exposure 00:00:00 00:00:00 [facility] Sex [birth year] At [birth year] Universit y of 00:00:00 00:00:00 [facility] Smoking Status Start Date Stop Date Source Current every day smoker 2018-02-21 00:00:00 Uni versity of [facility] Medications Ordered Filled Start Stop Current Ordering Indication Dosage Frequency Signature Comments Components Source Medication Medication Date Date Medication? Clinician (SIG) Name Name MIRTAZAPINE 2020-05 Yes [id number] 15mg TAKE 1 Univers 15 mg 2-20 TABLET BY ity of tablet 00:00: MOUTH AT [place] 00 BEDTIME Medical Branch cefTRIAXone 2020- No 1000mg 1,000 mg, Univers (ROCEPHIN) 02-12 IV ity of 1,000 mg in 22:45: 10:44 [place], [place] NaCl 0.9% 00 :00 ONCE, 1 Medical (NS) 50 mL dose, On Bran h MINI-BAG Mon02/12/21 at 1745, Administer over 30 Minutes, 50 mL
Reas on for Anti-Infec tive: Empiric Therapy for Suspected Infection< br>Empiric Therapy Site: Urine
D uration of therapy: 72 hours cefTRIAXone No 1000mg 1,000 mg, Univers (ROCEPHIN) 02-12 IV ity of 1,000 mg in 22:45: 10:44 [place], [place] NaCl 0.9% 00 :00 ONCE, 1 Medical (NS) 50 mL dose, On Branc h MINI-BAG Mon02/12/21 at 1745, Administer over 30 Minutes, 50 mL
Reas on for Anti-Infec tive: Empiric Therapy for Suspected Infection< br>Empiric Therapy Site: Urine
D uration of therapy: 72 hours insulin 2020- No 10U 10 Units, Univ ers regular 02-12 Slow IV ity of human 21:30: 21:29 Sandra [place] (HUMULIN R) 00 :00 ONCE, 1 Medic al injection dose, On Branch 10 Units 02/12/21 at 1630, Routine NaCl 0.9% 2020- No 1000mL at 999 Uni vers (NS) bolus 02-12 mL/hr, ity of infusion 21:30: 22:08 1,000 mL, Raffy as 1,000 mL 00 :00 [facility], [facility] dose, On Mon02/12/21 at [...] 1,000 mL 00 :00 IV Medical Piggyback, [place] ONCE, 1 dose, On Mon02/12/21 at 1630, STAT cefpodoxime 2020- No [id number] 100mg Take 1 Univers 100 mg 02-12 tablet by ity of tablet 00:00: 04:59 mouth 2 [place] 00 :00 (two) Medical times [place] daily for 7 days. cefpodoxime 2020- No [id number] 100mg Take 1 Univers 100 mg 02-12 tablet by ity of tablet 00:00: 04:59 mouth 2 [place] 00 :00 (two) Medical times [place] daily for 7 days. glipiZIDE 2020- No [id number] 10mg Take 1 U nivers 10 mg 01-18 tablet by ity of tablet 00:00: 04:59 mouth [place] 00 :00 daily for Medical 30 days. [place] glipiZIDE 2020- No [id number] 10mg Take 1 U nivers 10 mg 01-18 tablet by ity of tablet 00:00: 04:59 mouth [place] 00 :00 daily for Medical 30 days. [place] glipiZIDE 2020- No [id number] 10mg Take 1 U nivers 10 mg 01-18 tablet by ity of tablet 00:00: 00:00 mouth [place] 00 :00 daily for Medical 30 days. [place] glipiZIDE Yes 10mg 10 mg, Univer s (GLUCOTROL) 01-17 Oral, ity of tablet 10 14:00: DAILY, [place] mg 00 First dose Medical on [place] Branch 01/17/21 at 0900, Until Discontinu ed, [...] Therapy: Other (see Comments) nicotine 2020- No [id number] 1{patch Apply 1 Univers mg/24 hr 01-1720 } Patch to ity of patch 00:00: 04:59 area(s) [place] 00 :00 every 24 Medical (twenty-fo Branch ur) hours for 28 days. nicotine 14 2020- No [id number] 1{patch Apply 1 Univers mg/24 hr 01-1720 } Patch to ity of patch 00:00: 04:59 area(s) [place] 00 :00 every 24 Medical (twenty-fo Branch ur) hours for 28 days. nicotine 14 2020- No [id number] 1{patch Apply 1 Univers mg/24 hr 01-1720 } Patch to ity of patch 00:00: 04:59 area(s) [place] 00 :00 every 24 Medical (twenty-fo Branch ur) hours for 28 days. nicotine 14 2020- No [id number] 1{patch Apply 1 Univers mg/24 hr 01-1720 } Patch to ity of patch 00:00: 04:59 area(s) [place] 00 :00 every 24 Medical (twenty-fo Branch ur) hours for 28 days. nicotine 2020- No [id number] 1{patch Apply 1 Univers mg/24 hr 01-1720 } Patch to ity of patch 00:00: 04:59 area(s) [place] 00 :00 every 24 Medical (twenty-fo Branch ur) hours for 28 days. ciprofloxac 2020- No [id number] 500mg Take 1 Univers in HCl 500 01-17 tablet by ity of mg tablet 00:00: 04:59 mouth [place] 00 :00 every 12 Medical (twelve) Branch hours for 7 days. ciprofloxac No [id number] 500mg Take 1 Univers in HCl 500 01-17 tablet by ity of mg tablet 00:00: 04:59 mouth [place] 00 :00 every 12 Medical (twelve) Branch hours for 7 days. KCL 2020- No 60meq 60 mEq, Univers (KLOR-CON 01-16 Oral, ity of M20) tablet 16:00: 16:43 ONCE, 1 [place] 60 mEq 00 :00 dose, [facility] 01/16/21 at Branch 1100, Routine cefTRIAXone Yes 1000mg 1,000 mg, Univers (ROCEPHIN) 01-16 IV ity of 1,000 mg in 14:30: Piggyback, [place] NaCl 0.9% 00 Q24H ABX, Medic al (NS) 50 mL First dose Bra [facility] MINI-BAG on [facility] 01/16/21 at 0930, Until Discontinu ed, Administer over 30 Minutes, 50 mL
Reas on for Anti-Infec tive: Empiric Therapy for Suspected Infection< br>Empiric Therapy Site: Urine
D uration of therapy: 7 days pantoprazol Yes 40mg 40 mg, Univ ers e 01-16 Oral, ity of (PROTONIX) 14:00: DAILY, [place] EC tablet 00 First dose Medi blanquita 40 mg on [facility] 01/16/21 at 0900, Until Discontinu ed, Routine ezetimibe Yes 10mg 10 mg, Univer s (ZETIA) 01-16 Oral, ity of tablet 10 14:00: DAILY, [place] mg 00 First dose Medical on [facility] 01/16/21 at 0900, Until Discontinu ed, Routine clopidogreL Yes 75mg 75 mg, Univ ers (PLAVIX) 01-16 Oral, ity of tablet 75 14:00: DAILY, [place] mg 00 First dose Medical on [facility] 01/16/21 at 0900, Until Discontinu ed, Routine aspirin Yes 81mg 81 mg, Univers chewable 01-16 Oral, ity of tablet 81 14:00: DAILY, [place] mg 00 First dose Medical on [facility] 01/16/21 at 0900, Until Discontinu ed, Routine fluconazole 2020- No 150mg 150 mg, U nivers (DIFLUCAN) 01-16 Oral, ity of tablet 150 14:00: 20:40 DAILY, [place] mg 00 :05 First dose Medical on [facility] 01/16/21 at 0900, Until Discontinu ed, TRANG
Re ason for Anti-Infec tive: Documented Infection< br>Documen anthony Infection Site: Urine
D uration of Therapy: Other (see Comments) Sliding Yes Subcutaneo Univ ers Scale 01-16 us, TID ity of Insulin - 13:00: MEALS, [place] Lispro 00 First dose Medical (HumaLOG) + (after [place] Fsbg last Testing modificati on) on [facility] 01/16/21 at 0800, Until Discontinu ed, Routine insulin NPH 15U 15 Units, Univers and regular 01-16 Subcutaneo i ty of human 70-30 02:30: 01:47 , ONCE, [place] (HUMULIN 00 :00 1 dose, Medical 70-30 U-100 [facility] INSULIN) 01/15/21 at 100 unit/mL 2130, (70-30) Routine injection 15 Units mirtazapine Yes 15mg 15 mg, Univ ers (REMERON) 01-16 Oral, QHS, ity of tablet 15 02:00: First dose [place] mg 00 on Mon [facility] 01/15/21 at Branch 2100, Until Discontinu ed, Routine atorvastati Yes 80mg 80 mg, Univ ers n (LIPITOR) 01-16 Oral, QHS, it y of tablet 80 02:00: First dose [place] mg 00 on Mon [facility] 01/15/21 at Branch 2100, Until Discontinu ed, Routine gabapentin Yes 800mg 800 mg, Uni vers (NEURONTIN) 01-16 Oral, TID, it y of tablet 800 01:00: First dose [place] mg 00 on Mon [facility] 01/15/21 at Branch 2000, Until Discontinu ed, Routine nicotine Yes 1{patch 1 Patch, Un cali (NICODERM) 01-15 } Topical, ity o f 14 mg/24 hr 23:15: Administer [place] patch 1 00 over 24 Medical Patch Hours, [place] Q24H, First dose on Mon01/15/21 at 1815, Until Discontinu ed, Routine insulin NPH Yes 40U 40 Units, U nivers and regular 8- Subcutaneo it y of human 70-30 22:45: us, BIDAC, [place] (HUMULIN 00 First dose Medic al 70-30 [...] ity of Insulin - 22:45: 01:18 MEALS, [place] Lispro 00 :16 First dose Medical (HumaLOG) [...] 01-15 IV Push, ity of mg 21:58: Q4HPSpokane, [place] 52 Starting Medical Fri [place] 01/15/21 at 1658, Until Discontinu ed, Routine, Pain (scale 7-10) ondansetron 0 Yes 4mg 4 mg, Slow Univers (ZOFRAN 8- IV Push, ity of (PF)) 21:32: [place], [place] injection 4 17 Starting Medi blanquita [...] 8-20 Oral, ity of (TYLENOL) 21:31: Q6HPRN, [place] tablet 650 47 Starting Medic al mg Fri Branch 01/15/21 at 1631, Until Discontinu ed, Routine, Pain (scale 1-3) gabapentin 2020-0 Yes [id number] 800mg Take 1 Univers 800 mg 8-20 tablet by ity of tablet 00:00: mouth (three) Medical times Branch daily. gabapentin 2020-0 Yes [id number] 800mg Take 1 Univers 800 mg 8-20 tablet by ity of tablet 00:00: mouth (three) Medical times Branch daily. gabapentin 2020-0 Yes [id number] 800mg Take 1 Univers 800 mg 8-20 tablet by ity of tablet 00:00: mouth ([facility]) Medical times Branch daily. gabapentin 2020-0 Yes [id number] 800mg Take 1 Univers 800 mg 8-20 tablet by ity of tablet 00:00: mouth (three) Medical times Branch daily. gabapentin 2020-0 Yes [id number] 800mg Take 1 Univers 800 mg 8-20 tablet by ity of tablet 00:00: mouth (three) Medical times Branch daily. gabapentin 2020-0 Yes [id number] 800mg Take 1 Univers 800 mg 8-20 tablet by ity of tablet 00:00: mouth (three) Medical times Branch daily. gabapentin 2020-0 Yes [id number] 800mg Take 1 Univers 800 mg 8-20 tablet by ity of tablet 00:00: mouth (three) Medical times Branch daily. gabapentin 2020-0 Yes [id number] 800mg Take 1 Univers 800 mg 8-20 tablet by ity of tablet 00:00: mouth (three) Medical times Branch daily. gabapentin 2020-0 Yes [id number] 800mg Take 1 Univers 800 mg 8-20 tablet by ity of tablet 00:00: mouth (three) Medical times Branch daily. gabapentin 2020-0 Yes [id number] 800mg Take 1 Univers 800 mg 8-20 tablet by ity of tablet 00:00: mouth 3 [place] 00 (three) Medical times Branch daily. ondansetron 2020-0 Yes [id number] 4mg Take 1 Univers 4 mg 8-06 tablet by ity of disintegrat 00:00: mouth [place] ing tablet 00 every 8 Medica l (eight) Branch hours as needed for Nausea and Vomiting (N/V). ondansetron 0 Yes [id number] 4mg Take 1 Univers 4 mg 8-06 tablet by ity of disintegrat 00:00: mouth [place] ing tablet 00 every 8 Medica l (eight) Branch hours as needed for Nausea and Vomiting (N/V). ondansetron 0 Yes [id number] 4mg Take 1 Univers 4 mg 8-06 tablet by ity of disintegrat 00:00: mouth [place] ing tablet 00 every 8 Medica l (eight) Branch hours as needed for Nausea and Vomiting (N/V). ondansetron 0 Yes [id number] 4mg Take 1 Univers 4 mg 8-06 tablet by ity of disintegrat 00:00: mouth [place] ing tablet 00 every 8 Medica l (eight) Branch hours as needed for Nausea and Vomiting (N/V). ondansetron 0 Yes [id number] 4mg Take 1 Univers 4 mg 8-06 tablet by ity of disintegrat 00:00: mouth [place] ing tablet 00 every 8 Medica l (eight) Branch hours as needed for Nausea and Vomiting (N/V). ondansetron 0 Yes [id number] 4mg Take 1 Univers 4 mg 8-06 tablet by ity of disintegrat 00:00: mouth [place] ing tablet 00 every 8 Medica l (eight) Branch hours as needed for Nausea and Vomiting (N/V). ondansetron 2020-0 Yes [id number] 4mg Take 1 Univers 4 mg 8-06 tablet by ity of disintegrat 00:00: mouth [place] ing tablet 00 every 8 Medica l (eight) Branch hours as needed for Nausea and Vomiting (N/V). glucagon 3 Yes [id number] 1{spray Use 1 Univers mg/actuatio 8-06 } [place] in ity of n Onyx 00:00: each [place] 00 nostril as Medical needed Branch (hypoglyce filomena). ondansetron Yes [id number] 4mg Take 1 Univers 4 mg 8-06 tablet by ity of disintegrat 00:00: mouth [place] ing tablet 00 every 8 Medica l (eight) Branch hours as needed for Nausea and Vomiting (N/V). glucagon 3 Yes [id number] 1{spray Use 1 Univers mg/actuatio 8-06 } [place] in ity of n Onyx 00:00: each [place] 00 nostril as Medical needed Branch (hypoglyce filomena). ondansetron Yes [id number] 4mg Take 1 Univers 4 mg 8-06 tablet by ity of disintegrat 00:00: mouth [place] ing tablet 00 every 8 Medica l (eight) Branch hours as needed for Nausea and Vomiting (N/V). glucagon 3 Yes [id number] 1{spray Use 1 Univers mg/actuatio 8-06 } [place] in ity of n Onyx 00:00: each [place] 00 nostril as Medical needed Branch (hypoglyce filomena). ondansetron Yes [id number] 4mg Take 1 Univers 4 mg 8-06 tablet by ity of disintegrat 00:00: mouth [place] ing tablet 00 every 8 Medica l (eight) Branch hours as needed for Nausea and Vomiting (N/V). ondansetron Yes [id number] 4mg Take 1 Univers 4 mg 8-06 tablet by ity of disintegrat 00:00: mouth [place] ing tablet 00 every 8 Medica l (eight) Branch hours as needed for Nausea and Vomiting (N/V). ondansetron Yes [id number] 4mg Take 1 Univers 4 mg 8-06 tablet by ity of disintegrat 00:00: mouth [place] ing tablet 00 every 8 Medica l (eight) Branch hours as needed for Nausea and Vomiting (N/V). glucagon 3 2020- No [id number] 1{spray Use 1 Univers mg/actuatio 8-06 08-20 } [place] in ity of n Onyx 00:00: 00:00 each [place] 00 :00 nostril as Medical needed Branch (hypoglyce filomena). glucagon 3 2020-2020- No [id number] 1{spray Use 1 Univers mg/actuatio 01-0120 } [place] in ity of n Onyx 00:00: 00:00 each [place] 00 :00 nostril as Medical needed Branch (hypoglyce filomena). glucagon 3 2020- No [id number] 1{spray Use 1 Univers mg/actuatio 01-0120 } [place] in ity of n Onyx 00:00: 00:00 each [place] 00 :00 nostril as Medical needed Branch (hypoglyce filomena). GABAPENTIN Yes [id number] TAKE 1 Univers 800 mg 7-23 TABLET BY ity of tablet 00:00: MOUTH [place] 00 THREE Medical TIMES Branch DAILY GABAPENTIN 2020-0 2020- No [id number] TAKE 1 Univers 800 mg 7-23 08-19 TABLET BY ity of tablet 00:00: 00:00 MOUTH [place] 00 :00 THREE Medical TIMES Branch DAILY GABAPENTIN 2020-0 2020- No [id number] TAKE 1 Univers 800 mg 7-23 08-19 TABLET BY ity of tablet 00:00: 00:00 MOUTH [place] 00 :00 THREE Medical TIMES Branch DAILY aspirin 81 0 Yes [id number] 81mg Take 1 U nivers mg chewable 7-07 tablet by ity of tablet 00:00: mouth [place] 00 daily. Medical Branch clopidogreL 0 Yes [id number] 75mg Take 1 Univers 75 mg 7-07 tablet by ity of tablet 00:00: mouth [place] 00 daily. Medical Branch aspirin 81 2020-0 Yes [id number] 81mg Take 1 U nivers mg chewable 7-07 tablet by ity of tablet 00:00: mouth [place] 00 daily. Medical Branch clopidogreL 2020-0 Yes [id number] 75mg Take 1 Univers 75 mg 7-07 tablet by ity of tablet 00:00: mouth [place] 00 daily. Medical Branch aspirin 81 2020-0 Yes [id number] 81mg Take 1 U nivers mg chewable 7-07 tablet by ity of tablet 00:00: mouth [place] 00 daily. Medical Branch clopidogreL 2020-0 Yes [id number] 75mg Take 1 Univers 75 mg 7-07 tablet by ity of tablet 00:00: mouth [place] 00 daily. Medical Branch aspirin 81 2020-0 Yes [id number] 81mg Take 1 U nivers mg chewable 7-07 tablet by ity of tablet 00:00: mouth [place] 00 daily. Medical Branch clopidogreL 2020-0 Yes [id number] 75mg Take 1 Univers 75 mg 7-07 tablet by ity of tablet 00:00: mouth [place] 00 daily. Medical Branch aspirin 81 2020-0 Yes [id number] 81mg Take 1 U nivers mg chewable 7-07 tablet by ity of tablet 00:00: mouth [place] 00 daily. Medical Branch clopidogreL 2020-0 Yes [id number] 75mg Take 1 Univers 75 mg 7-07 tablet by ity of tablet 00:00: mouth [place] 00 daily. Medical Branch aspirin 81 2020-0 Yes [id number] 81mg Take 1 U nivers mg chewable 7-07 tablet by ity of tablet 00:00: mouth [place] 00 daily. Medical Branch clopidogreL 2020-0 Yes [id number] 75mg Take 1 Univers 75 mg 7-07 tablet by ity of tablet 00:00: mouth [place] 00 daily. Medical Branch aspirin 81 2020-0 Yes [id number] 81mg Take 1 U nivers mg chewable 7-07 tablet by ity of tablet 00:00: mouth [place] 00 daily. Medical Branch clopidogreL 2020-0 Yes [id number] 75mg Take 1 Univers 75 mg 7-07 tablet by ity of tablet 00:00: mouth [place] 00 daily. Medical Branch aspirin 81 2020-0 Yes [id number] 81mg Take 1 U nivers mg chewable 7-07 tablet by ity of tablet 00:00: mouth [place] 00 daily. Medical Branch clopidogreL 2020-0 Yes [id number] 75mg Take 1 Univers 75 mg 7-07 tablet by ity of tablet 00:00: mouth [place] 00 daily. Medical Branch aspirin 81 2020-0 Yes [id number] 81mg Take 1 U nivers mg chewable 7-07 tablet by ity of tablet 00:00: mouth [place] 00 daily. Medical Branch clopidogreL 2020-0 Yes [id number] 75mg Take 1 Univers 75 mg 7-07 tablet by ity of tablet 00:00: mouth [place] 00 daily. Medical Branch aspirin 81 2020-0 Yes [id number] 81mg Take 1 U nivers mg chewable 7-07 tablet by ity of tablet 00:00: mouth [place] 00 daily. Medical Branch clopidogreL 2020-0 Yes [id number] 75mg Take 1 Univers 75 mg 7-07 tablet by ity of tablet 00:00: mouth [place] 00 daily. Medical Branch aspirin 81 2020-0 Yes [id number] 81mg Take 1 U nivers mg chewable 7-07 tablet by ity of tablet 00:00: mouth [place] 00 daily. Medical Branch clopidogreL 2020-0 Yes [id number] 75mg Take 1 Univers 75 mg 7-07 tablet by ity of tablet 00:00: mouth [place] 00 daily. Medical Branch aspirin 81 2020-0 Yes [id number] 81mg Take 1 U nivers mg chewable 7-07 tablet by ity of tablet 00:00: mouth [place] 00 daily. Medical Branch aspirin 81 2020-0 Yes [id number] 81mg Take 1 U nivers mg chewable 7-07 tablet by ity of tablet 00:00: mouth [place] 00 daily. Medical Branch clopidogreL 2020-0 Yes [id number] 75mg Take 1 [facility] 75 mg 7-07 tablet by ity of tablet 00:00: mouth [place] 00 daily. Medical Branch clopidogreL 2020-0 Yes [id number] 75mg Take 1 [facility] 75 mg 7-07 tablet by ity of tablet 00:00: mouth [place] 00 daily. Medical Branch aspirin 81 2020-0 Yes [id number] 81mg Take 1 U nivers mg chewable 7-07 tablet by ity of tablet 00:00: mouth [place] 00 daily. Medical Branch clopidogreL 2020-0 Yes [id number] 75mg Take 1 [facility] 75 mg 7-07 [...] [place] mg 00 First dose Medical on [facility] 12/01/20 at 0900, Until Discontinu ed, Routine pantoprazol 0 Yes 40mg 40 mg, Univ ers e - Oral, ity of (PROTONIX) 14:00: DAILY, [place] EC tablet 00 First dose Medi blanquita 40 mg on [facility] 12/01/20 at 0900, Until Discontinu ed, Routine clopidogreL Yes [id number] 75mg 75 mg, Univers (PLAVIX) 12-01 Oral, ity of tablet 75 14:00: DAILY, [place] mg 00 First dose Medical on [facility] 12/01/20 at 0900, Until Discontinu ed, Routine
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 member approving Restricted medication : [place] aspirin Yes [id number] 81mg 81 mg, [facility] ers chewable 12-01 Oral, ity of tablet 81 14:00: DAILY, [place] mg 00 First dose Medical on [facility] 12/01/20 at 0900, Until Discontinu ed, Routine heparin Yes 5000U 5,000 Univers (porcine) 12-01 Units, ity of injection 13:00: [place] 5,000 Units 00 us, Q12H, Med ical First dose Branch on [facility] 12/01/20 at 0800, Until Discontinu ed, Routine gabapentin Yes 800mg 800 mg, Uni vers (NEURONTIN) 12-01 Oral, TID, it y of tablet 800 13:00: First dose [place] mg 00 on [facility] 12/01/20 at Branch 0800, Until Discontinu ed, Routine magnesium 2020- No 4g 4 g, IV [facility] ers sulfate in 12-01 Piggyback, it y of water 4 12:45: 14:07 ONCE, 1 [place] gram/50 mL 00 :00 dose, [facility] blanquita (8 %) IV 12/01/20 at [place] Piggyback 4 0745, g Routine insulin NPH Yes 40U 40 Units, U nivers and regular 12-01 Subcutaneo it y of human 70-30 12:30: us, BIDAC, [place] (HUMULIN 00 First dose Medic al 70-30 U-100 on [facility] INSULIN) 12/01/20 at 100 unit/mL 0730, (70-30) Until injection Discontinu 40 Units ed, Routine NaCl 0.9% 2020- No 1000mL at 20 [facility] ers (NS) IV 12-01 mL/hr, IV [...] ity of (PF)) 20:53: 20:53 TITRATE - [place] injection 44 :44 FOR Medical PROCEDURE Branch USE, 1 dose, Starting 11/30/20 at 1553, Until 11/30/20 at 1553, Routine midazolam 2020- No IV Push, Uni vers (VERSED) 11-30 TITRATE - ity o f injection 20:53: 20:53 FOR [place] 37 :37 PROCEDURE Medical USE, 1 Branch dose, Starting 11/30/20 at 1553, Until Mon11/30/20 at 1553, Routine insulin 2020- No [id number] 10U 10 Units, Univers lispro 11-30 Subcutaneo ity of (human) 18:00: 18:15 us, ONCE, [place] (HumaLOG 00 :00 1 dose, Medical U-100) Mon11/30/20 Branch injection at 1300, 10 Units Routine ezetimibe Yes [id number] 10mg Take 1 U nivers 10 mg 6-18 tablet by ity of tablet 00:00: mouth [place] 00 daily. Medical Branch furosemide 2020- Yes [id number] 1 tablet [facility] 20 mg 6-18 02 as needed ity of tablet 00:00: for leg [place] swelling Medical Branch ezetimibe 2020-0 Yes [id number] 10mg Take 1 U nivers 10 mg 6-18 tablet by ity of tablet 00:00: mouth [place] 00 daily. Medical Branch furosemide 2020-0 Yes [id number] 1 tablet [facility] 20 mg 6-18 02 as needed ity of tablet 00:00: for leg [place] swelling Medical Branch ezetimibe 2020-0 Yes [id number] 10mg Take 1 U nivers 10 mg 6-18 tablet by ity of tablet 00:00: mouth [place] 00 daily. Medical Branch furosemide 2020-0 Yes [id number] 1 tablet [facility] 20 mg 6-18 02 as needed ity of tablet 00:00: for leg [place] swelling Medical Branch ezetimibe 2020-0 Yes [id number] 10mg Take 1 U nivers 10 mg 6-18 tablet by ity of tablet 00:00: mouth [place] 00 daily. Medical Branch furosemide 2021-0 Yes [id number] 1 tablet [facility] 20 mg 6-18 02 as needed ity of tablet 00:00: for leg swelling Medical Branch ezetimibe 1-0 Yes [id number] 10mg Take 1 U nivers 10 mg 6-18 tablet by ity of tablet 00:00: mouth [place] 00 daily. Medical Branch furosemide 1-0 Yes [id number] 1 tablet [facility] 20 mg 6-18 02 as needed ity of tablet 00:00: for leg swelling Medical Branch ezetimibe 1-0 Yes [id number] 10mg Take 1 U nivers 10 mg 6-18 tablet by ity of tablet 00:00: mouth [place] 00 daily. Medical Branch furosemide 1-0 Yes [id number] 1 tablet [facility] 20 mg 6-18 02 as needed ity of tablet 00:00: for leg swelling Medical Branch ezetimibe 1-0 Yes [id number] 10mg Take 1 U nivers 10 mg 6-18 tablet by ity of tablet 00:00: mouth [place] 00 daily. Medical Branch furosemide 1-0 Yes [id number] 1 tablet [facility] 20 mg 6-18 02 as needed ity of tablet 00:00: for leg swelling Medical Branch ezetimibe 1-0 Yes [id number] 10mg Take 1 U nivers 10 mg 6-18 tablet by ity of tablet 00:00: mouth [place] 00 daily. Medical Branch furosemide 1-0 Yes [id number] 1 tablet [facility] 20 mg 6-18 02 as needed ity of tablet 00:00: for leg swelling Medical Branch ezetimibe 2021-0 Yes [id number] 10mg Take 1 U nivers 10 mg 6-18 tablet by ity of tablet 00:00: mouth [place] 00 daily. Medical Branch furosemide 2021-0 Yes [id number] 1 tablet [facility] 20 mg 6-18 02 as needed ity of tablet 00:00: for leg swelling Medical Branch ezetimibe 2021-0 Yes [id number] 10mg Take 1 U nivers 10 mg 6-18 tablet by ity of tablet 00:00: mouth [place] 00 daily. Medical Branch furosemide 1-0 Yes [id number] 1 tablet [facility] 20 mg 6-18 02 as needed ity of tablet 00:00: for leg swelling Medical Branch ezetimibe 2021-0 Yes [id number] 10mg Take 1 U nivers 10 mg 6-18 tablet by ity of tablet 00:00: mouth [place] 00 daily. Medical Branch furosemide 2021-0 Yes [id number] 1 tablet [facility] 20 mg 6-18 02 as needed ity of tablet 00:00: for leg swelling Medical Branch ezetimibe 2021-0 Yes [id number] 10mg Take 1 U nivers 10 mg 6-18 tablet by ity of tablet 00:00: mouth [place] 00 daily. Medical Branch furosemide 2021-0 Yes [id number] 1 tablet [facility] 20 mg 6-18 02 as needed ity of tablet 00:00: for leg swelling Medical Branch ezetimibe 2021-0 Yes [id number] 10mg Take 1 U nivers 10 mg 6-18 tablet by ity of tablet 00:00: mouth [place] 00 daily. Medical Branch furosemide 2021-0 Yes [id number] 1 tablet [facility] 20 mg 6-18 02 as needed ity of tablet 00:00: for leg swelling Medical Branch ezetimibe 2021-0 Yes [id number] 10mg Take 1 U nivers 10 mg 6-18 tablet by ity of tablet 00:00: mouth [place] 00 daily. Medical Branch furosemide 2021-0 Yes [id number] 1 tablet [facility] 20 mg 6-18 02 as needed ity of tablet 00:00: for leg swelling Medical Branch ezetimibe 2021-0 Yes [id number] 10mg Take 1 U nivers 10 mg 6-18 tablet by ity of tablet 00:00: mouth [place] 00 daily. Medical Branch furosemide 2021-0 Yes [id number] 1 tablet [facility] 20 mg 6-18 02 as needed ity of tablet 00:00: for leg swelling Medical Branch ezetimibe 2021-0 Yes [id number] 10mg Take 1 U nivers 10 mg 6-18 tablet by ity of tablet 00:00: mouth [place] 00 daily. Medical Branch furosemide 2021-0 Yes [id number] 1 tablet [facility] 20 mg 6-18 02 as needed ity of tablet 00:00: for leg swelling Medical Branch ezetimibe 2021-0 Yes [id number] 10mg Take 1 U nivers 10 mg 6-18 tablet by ity of tablet 00:00: mouth [place] 00 daily. Medical Branch furosemide 2020-0 Yes [id number] 1 tablet [facility] 20 mg 6-18 02 as needed ity of tablet 00:00: for leg swelling Medical Branch ezetimibe 2020-0 Yes [id number] 10mg Take 1 U nivers 10 mg 6-18 tablet by ity of tablet 00:00: mouth [place] 00 daily. Medical Branch furosemide 2020-0 Yes [id number] 1 tablet [facility] 20 mg 6-18 02 as needed ity of tablet 00:00: for leg swelling Medical Branch ezetimibe 2020-0 Yes [id number] 10mg Take 1 U nivers 10 mg 6-18 tablet by ity of tablet 00:00: mouth [place] 00 daily. Medical Branch furosemide 2020-0 Yes [id number] 1 tablet [facility] 20 mg 6-18 02 as needed ity of tablet 00:00: for leg swelling Medical Branch ezetimibe 2020-0 Yes [id number] 10mg Take 1 U nivers 10 mg 6-18 tablet by ity of tablet 00:00: mouth [place] 00 daily. Medical Branch furosemide 2020-0 Yes [id number] 1 tablet [facility] 20 mg 6-18 02 as needed ity of tablet 00:00: for leg swelling Medical Branch ezetimibe 2020-0 Yes [id number] 10mg Take 1 U nivers 10 mg 6-18 tablet by ity of tablet 00:00: mouth [place] 00 daily. Medical Branch furosemide 2020-0 Yes [id number] 1 tablet [facility] 20 mg 6-18 02 as needed ity of tablet 00:00: for leg swelling Medical Branch insulin NPH 2020-0 Yes [id number] 40U inject Univers and regular 5-12 40-50 ity of human 70-30 00:00: Units [place] (NOVOLIN 00 under the Medica l 70/30 U-100 skin 2 Branch INSULIN) (two) 100 unit/mL times (70-30) daily injection before breakfast and dinner. FREESTYLE 2020-0 Yes [id number] 1{kit} 1 Kit [facility] RASHARD 2 5-12 every 14 ity of SENSOR Kit 00:00: (fourteen) [place] 00 days. Medical Branch insulin NPH Yes [id number] 40U inject Univers and regular 5-12 40-50 ity of human 70-30 00:00: Units [place] (NOVOLIN 00 under the Medica l 70/30 U-100 skin 2 Branch INSULIN) (two) 100 unit/mL times (70-30) daily injection before breakfast and dinner. FREESTYLE Yes [id number] 1{kit} 1 Kit [facility] RASHARD 2 5-12 every 14 ity of SENSOR Kit 00:00: (fourteen) [place] days. Medical Branch insulin NPH Yes [id number] 40U inject Univers and regular 5-12 40-50 ity of human 70-30 00:00: Units [place] (NOVOLIN 00 under the Medica l 70/30 U-100 skin 2 Branch INSULIN) (two) 100 unit/mL times (70-30) daily injection before breakfast and dinner. FREESTYLE Yes [id number] 1{kit} 1 Kit [facility] RASHARD 2 5-12 every 14 ity of SENSOR Kit 00:00: (fourteen) [place] days. Medical Branch insulin NPH Yes [id number] 40U inject Univers and regular 5-12 40-50 ity of human 70-30 00:00: Units [place] (NOVOLIN 00 under the Medica l 70/30 U-100 skin 2 Branch INSULIN) (two) 100 unit/mL times (70-30) daily injection before breakfast and dinner. insulin NPH Yes [id number] 40U inject Univers and regular 5-12 40-50 ity of human 70-30 00:00: Units [place] (NOVOLIN 00 under the Medica l 70/30 U-100 skin 2 Branch INSULIN) (two) 100 unit/mL times (70-30) daily injection before breakfast and dinner. insulin NPH Yes [id number] 40U inject Univers and regular 5-12 40-50 ity of human 70-30 00:00: Units [place] (NOVOLIN 00 under the Medica l 70/30 U-100 skin 2 Branch INSULIN) (two) 100 unit/mL times (70-30) daily injection before breakfast and dinner. insulin NPH Yes [id number] 40U inject Univers and regular 5-12 40-50 ity of human 70-30 00:00: Units [place] (NOVOLIN 00 under the Medica l 70/30 U-100 skin 2 Branch INSULIN) (two) 100 unit/mL times (70-30) daily injection before breakfast and dinner. insulin NPH 0 Yes [id number] 40U inject Univers and regular 5-12 40-50 ity of human 70-30 00:00: Units [place] (NOVOLIN 00 under the Medica l 70/30 U-100 skin 2 Branch INSULIN) (two) 100 unit/mL times (70-30) daily injection before breakfast and dinner. insulin NPH 0 Yes [id number] 40U inject Univers and regular 5-12 40-50 ity of human 70-30 00:00: Units [place] (NOVOLIN 00 under the Medica l 70/30 U-100 skin 2 Branch INSULIN) (two) 100 unit/mL times (70-30) daily injection before breakfast and dinner. insulin NPH Yes [id number] 40U inject Univers and regular 5-12 40-50 ity of human 70-30 00:00: Units [place] (NOVOLIN 00 under the Medica l 70/30 U-100 skin 2 Branch INSULIN) (two) 100 unit/mL times (70-30) daily injection before breakfast and dinner. insulin NPH 0 Yes [id number] 40U inject Univers and regular 5-12 40-50 ity of human 70-30 00:00: Units [place] (NOVOLIN 00 under the Medica l 70/30 U-100 skin 2 Branch INSULIN) (two) 100 unit/mL times (70-30) daily injection before breakfast and dinner. insulin NPH 0 Yes [id number] 40U inject Univers and regular 5-12 40-50 ity of human 70-30 00:00: Units [place] (NOVOLIN 00 under the Medica l 70/30 U-100 skin 2 Branch INSULIN) (two) 100 unit/mL times (70-30) daily injection before breakfast and dinner. insulin NPH 0 Yes [id number] 40U inject Univers and regular 5-12 40-50 ity of human 70-30 00:00: Units [place] (NOVOLIN 00 under the Medica l 70/30 U-100 skin 2 Branch INSULIN) (two) 100 unit/mL times (70-30) daily injection before breakfast and dinner. insulin NPH 0 Yes [id number] 40U inject Univers and regular 5-12 40-50 ity of human 70-30 00:00: Units [place] (NOVOLIN 00 under the Medica l 70/30 U-100 skin 2 Branch INSULIN) (two) 100 unit/mL times (70-30) daily injection before breakfast and dinner. insulin NPH 0 Yes [id number] 40U inject Univers and regular 5-12 40-50 ity of human 70-30 00:00: Units [place] (NOVOLIN 00 under the Medica l 70/30 U-100 skin 2 Branch INSULIN) (two) 100 unit/mL times (70-30) daily injection before breakfast and dinner. insulin NPH 0 Yes [id number] 40U inject Univers and regular 5-12 40-50 ity of human 70-30 00:00: Units [place] (NOVOLIN 00 under the Medica l 70/30 U-100 skin 2 Branch INSULIN) (two) 100 unit/mL times (70-30) daily injection before breakfast and dinner. insulin NPH 0 Yes [id number] 40U inject Univers and regular 5-12 40-50 ity of human 70-30 00:00: Units [place] (NOVOLIN 00 under the Medica l 70/30 U-100 skin 2 Branch INSULIN) (two) 100 unit/mL times (70-30) daily injection before breakfast and dinner. insulin NPH 0 Yes [id number] 40U inject Univers and regular 5-12 40-50 ity of human 70-30 00:00: Units [place] (NOVOLIN 00 under the Medica l 70/30 U-100 skin 2 Branch INSULIN) (two) 100 unit/mL times (70-30) daily injection before breakfast and dinner. insulin NPH 0 Yes [id number] 40U inject Univers and regular 5-12 40-50 ity of human 70-30 00:00: Units [place] (NOVOLIN 00 under the Medica l 70/30 U-100 skin 2 Branch INSULIN) (two) 100 unit/mL times (70-30) daily injection before breakfast and dinner. insulin NPH 0 Yes [id number] 40U inject Univers and regular 5-12 40-50 ity of human 70-30 00:00: Units [place] (NOVOLIN 00 under the Medica l 70/30 U-100 skin 2 Branch INSULIN) (two) 100 unit/mL times (70-30) daily injection before breakfast and dinner. insulin NPH Yes [id number] 40U inject Univers and regular 5-12 40-50 ity of human 70-30 00:00: Units [place] (NOVOLIN 00 under the Medica l 70/30 U-100 skin 2 Branch INSULIN) (two) 100 unit/mL times (70-30) daily injection before breakfast and dinner. insulin NPH Yes [id number] 40U inject Univers and regular 5-12 40-50 ity of human 70-30 00:00: Units [place] (NOVOLIN 00 under the Medica l 70/30 U-100 skin 2 Branch INSULIN) (two) 100 unit/mL times (70-30) daily injection before breakfast and dinner. insulin NPH Yes [id number] 40U inject Univers and regular 5-12 40-50 ity of human 70-30 00:00: Units [place] (NOVOLIN 00 under the Medica l 70/30 U-100 skin 2 Branch INSULIN) (two) 100 unit/mL times (70-30) daily injection before breakfast and dinner. insulin NPH Yes [id number] 40U inject Univers and regular 5-12 40-50 ity of human 70-30 00:00: Units [place] (NOVOLIN 00 under the Medica l 70/30 U-100 skin 2 Branch INSULIN) (two) 100 unit/mL times (70-30) daily injection before breakfast and dinner. insulin NPH Yes [id number] 40U inject Univers and regular 5-12 40-50 ity of human 70-30 00:00: Units [place] (NOVOLIN 00 under the Medica l 70/30 U-100 skin 2 Branch INSULIN) (two) 100 unit/mL times (70-30) daily injection before breakfast and dinner. FREESTYLE 2020- No [id number] 1{kit} 1 Kit [facility] RASHARD 2 10-0718 every 14 ity of SENSOR Kit 00:00: 00:00 (fourteen) [place] 00 :00 days. Medical Branch FREESTYLE 2020- No [id number] 1{kit} 1 Kit [facility] RASHARD 2 12 06-18 every 14 ity of SENSOR Kit 00:00: 00:00 (fourteen) [place] 00 :00 days. Medical Branch mirtazapine Yes [id number] 15mg Take 1 [facility] 15 mg 5-06 tablet by ity of tablet 00:00: mouth at [place] [address] bedtime. Medical Branch atorvastati Yes [id number] 80mg Take 1 Univers n 80 mg 5-06 tablet by ity of tablet 00:00: mouth at [place] [address] bedtime. Medical Branch glipiZIDE Yes [id number] 5mg Take 0.5 [facility] 10 mg 5-06 tablets by ity of tablet 00:00: mouth 2 [place] (two) Medical times Branch daily before breakfast and dinner. mirtazapine Yes [id number] 15mg Take 1 [facility] 15 mg 5-06 tablet by ity of tablet 00:00: mouth at [place] [address] bedtime. Medical Branch atorvastati Yes [id number] 80mg Take 1 Univers n 80 mg 5-06 tablet by ity of tablet 00:00: mouth at [place] [address] bedtime. Medical Branch glipiZIDE Yes [id number] 5mg Take 0.5 [facility] 10 mg 5-06 tablets by ity of tablet 00:00: mouth 2 [place] (two) Medical times Branch daily before breakfast and dinner. mirtazapine Yes [id number] 15mg Take 1 [facility] 15 mg 5-06 tablet by ity of tablet 00:00: mouth at [place] [address] bedtime. Medical Branch atorvastati Yes [id number] 80mg Take 1 [facility] n 80 mg 5-06 tablet by ity of tablet 00:00: mouth at [place] [address] bedtime. Medical Branch mirtazapine Yes [id number] 15mg Take 1 [facility] 15 mg 5-06 tablet by ity of tablet 00:00: mouth at [place] [address] bedtime. Medical Branch atorvastati Yes [id number] 80mg Take 1 [facility] n 80 mg 5-06 tablet by ity of tablet 00:00: mouth at [place] [address] bedtime. Medical Branch mirtazapine Yes [id number] 15mg Take 1 [facility] 15 mg 5-06 tablet by ity of tablet 00:00: mouth at [place] 00 bedtime. Medical Branch atorvastati 0 Yes [id number] 80mg Take 1 Univers n 80 mg 5-06 tablet by ity of tablet 00:00: mouth at [place] 00 bedtime. Medical Branch mirtazapine 0 Yes [id number] 15mg Take 1 [facility] 15 mg 5-06 tablet by ity of tablet 00:00: mouth at [place] 00 bedtime. Medical Branch atorvastati 0 Yes [id number] 80mg Take 1 Univers n 80 mg 5-06 tablet by ity of tablet 00:00: mouth at [place] [address] bedtime. Medical Branch mirtazapine Yes [id number] 15mg Take 1 [facility] 15 mg 5-06 tablet by ity of tablet 00:00: mouth at [place] [address] bedtime. Medical Branch atorvastati 0 Yes [id number] 80mg Take 1 Univers n 80 mg 5-06 tablet by ity of tablet 00:00: mouth at [place] [address] bedtime. Medical Branch mirtazapine Yes [id number] 15mg Take 1 [facility] 15 mg 5-06 tablet by ity of tablet 00:00: mouth at [place] [address] bedtime. Medical Branch atorvastati 0 Yes [id number] 80mg Take 1 [facility] n 80 mg 5-06 tablet by ity of tablet 00:00: mouth at [place] [address] bedtime. Medical Branch mirtazapine 0 Yes [id number] 15mg Take 1 [facility] 15 mg 5-06 tablet by ity of tablet 00:00: mouth at [place] [address] bedtime. Medical Branch atorvastati 0 Yes [id number] 80mg Take 1 Univers n 80 mg 5-06 tablet by ity of tablet 00:00: mouth at [place] [address] bedtime. Medical Branch mirtazapine 0 Yes [id number] 15mg Take 1 [facility] 15 mg 5-06 tablet by ity of tablet 00:00: mouth at [place] [address] bedtime. Medical Branch atorvastati 0 Yes [id number] 80mg Take 1 Univers n 80 mg 5-06 tablet by ity of tablet 00:00: mouth at [place] 00 bedtime. Medical Branch mirtazapine 2020-0 Yes [id number] 15mg Take 1 [facility] 15 mg 5-06 tablet by ity of tablet 00:00: mouth at [place] 00 bedtime. Medical Branch atorvastati 2020-0 Yes [id number] 80mg Take 1 [facility] n 80 mg 5-06 tablet by ity of tablet 00:00: mouth at [place] 00 bedtime. Medical Branch mirtazapine 2020-0 Yes [id number] 15mg Take 1 [facility] 15 mg 5-06 tablet by ity of tablet 00:00: mouth at [place] 00 bedtime. Medical Branch atorvastati 2020-0 Yes [id number] 80mg Take 1 Univers n 80 mg 5-06 tablet by ity of tablet 00:00: mouth at [place] 00 bedtime. Medical Branch mirtazapine 2020-0 Yes [id number] 15mg Take 1 [facility] 15 mg 5-06 tablet by ity of tablet 00:00: mouth at [place] [address] bedtime. Medical Branch atorvastati 0 Yes [id number] 80mg Take 1 [facility] n 80 mg 5-06 tablet by ity of tablet 00:00: mouth at [place] [address] bedtime. Medical Branch mirtazapine 0 Yes [id number] 15mg Take 1 [facility] 15 mg 5-06 tablet by ity of tablet 00:00: mouth at [place] [address] bedtime. Medical Branch atorvastati 0 Yes [id number] 80mg Take 1 Univers n 80 mg 5-06 tablet by ity of tablet 00:00: mouth at [place] [address] bedtime. Medical Branch mirtazapine 2020-0 Yes [id number] 15mg Take 1 [facility] 15 mg 5-06 tablet by ity of tablet 00:00: mouth at [place] [address] bedtime. Medical Branch atorvastati 0 Yes [id number] 80mg Take 1 Univers n 80 mg 5-06 tablet by ity of tablet 00:00: mouth at [place] [address] bedtime. Medical Branch mirtazapine 2020-0 Yes [id number] 15mg Take 1 [facility] 15 mg 5-06 tablet by ity of tablet 00:00: mouth at [place] [address] bedtime. Medical Branch atorvastati 2020-0 Yes [id number] 80mg Take 1 Univers n 80 mg 5-06 tablet by ity of tablet 00:00: mouth at [place] 00 bedtime. Medical Branch mirtazapine 2020-0 Yes [id number] 15mg Take 1 [facility] 15 mg 5-06 tablet by ity of tablet 00:00: mouth at [place] [address] bedtime. Medical Branch atorvastati 2020-0 Yes [id number] 80mg Take 1 Univers n 80 mg 5-06 tablet by ity of tablet 00:00: mouth at [place] [address] bedtime. Medical Branch mirtazapine 2020-0 Yes [id number] 15mg Take 1 [facility] 15 mg 5-06 tablet by ity of tablet 00:00: mouth at [place] 00 bedtime. Medical Branch atorvastati 0 Yes [id number] 80mg Take 1 Univers n 80 mg 5-06 tablet by ity of tablet 00:00: mouth at [place] [address] bedtime. Medical Branch mirtazapine 0 Yes [id number] 15mg Take 1 [facility] 15 mg 5-06 tablet by ity of tablet 00:00: mouth at [place] [address] bedtime. Medical Branch atorvastati 0 Yes [id number] 80mg Take 1 Univers n 80 mg 5-06 tablet by ity of tablet 00:00: mouth at [place] [address] bedtime. Medical Branch mirtazapine 0 Yes [id number] 15mg Take 1 [facility] 15 mg 5-06 tablet by ity of tablet 00:00: mouth at [place] [address] bedtime. Medical Branch atorvastati 0 Yes [id number] 80mg Take 1 Univers n 80 mg 5-06 tablet by ity of tablet 00:00: mouth at [place] [address] bedtime. Medical Branch mirtazapine 2020-0 Yes [id number] 15mg Take 1 [facility] 15 mg 5-06 tablet by ity of tablet 00:00: mouth at [place] [address] bedtime. Medical Branch atorvastati 0 Yes [id number] 80mg Take 1 Univers n 80 mg 5-06 tablet by ity of tablet 00:00: mouth at [place] [address] bedtime. Medical Branch mirtazapine 0 Yes [id number] 15mg Take 1 [facility] 15 mg 5-06 tablet by ity of tablet 00:00: mouth at [place] [address] bedtime. Medical Branch mirtazapine 0 Yes [id number] 15mg Take 1 [facility] 15 mg 5-06 tablet by ity of tablet 00:00: mouth at [place] [address] bedtime. Medical Branch atorvastati Yes [id number] 80mg Take 1 Univers n 80 mg 5-06 tablet by ity of tablet 00:00: mouth at [place] [address] bedtime. Medical Branch atorvastati Yes [id number] 80mg Take 1 Univers n 80 mg 5-06 tablet by ity of tablet 00:00: mouth at [place] 00 bedtime. Medical Branch mirtazapine Yes [id number] 15mg Take 1 [facility] 15 mg 5-06 tablet by ity of tablet 00:00: mouth at [place] 00 bedtime. Medical Branch atorvastati Yes [id number] 80mg Take 1 Univers n 80 mg 5-06 tablet by ity of tablet 00:00: mouth at [place] [address] bedtime. Medical Branch mirtazapine Yes [id number] 15mg Take 1 [facility] 15 mg 5-06 tablet by ity of tablet 00:00: mouth at [place] [address] bedtime. Medical Branch atorvastati Yes [id number] 80mg Take 1 Univers n 80 mg 5-06 tablet by ity of tablet 00:00: mouth at [place] [address] bedtime. Medical Branch atorvastati Yes [id number] 80mg Take 1 [facility] n 80 mg 5-06 tablet by ity of tablet 00:00: mouth at [place] [address] bedtime. Medical Branch mirtazapine Yes [id number] 15mg Take 1 [facility] 15 mg 5-06 tablet by ity of tablet 00:00: mouth at [place] [address] bedtime. Medical Branch atorvastati Yes [id number] 80mg Take 1 [facility] n 80 mg 5-06 tablet by ity of tablet 00:00: mouth at [place] [address] bedtime. [facility] glipiZIDE Yes Type 2 [...] [place] 00 involving bed[place]. [facility] [place] coronary artery of [place] without angina pectoris glipiZIDE Yes Type [...] [place] 00 involving bedtime. [facility] [place] [facility] coronary artery of [place] without angina pectoris mirtazapine 2020- No [id number] 15mg Take 1 [facility] 15 mg 5-06 12-20 tablet by ity of tablet 00:00: 00:00 mouth at [place] 00 :00 bedtime. Medical Branch glipiZIDE 2020- No [id number] 5mg Take 0.5 [facility] 10 mg 5-06 05-12 tablets by ity of tablet 00:00: 00:00 mouth 2 [place] 00 :00 (two) Medical times Branch daily before breakfast and dinner. glipiZIDE 2020- No [id number] 5mg Take 0.5 [facility] 10 mg 5-06 05-12 tablets by ity of tablet 00:00: 00:00 mouth 2 [place] 00 :00 (two) Medical times Branch daily before breakfast and dinner. fluconazole 2020- No [id number] 150mg Take 1 [facility] 150 mg 4-14 04-17 tablet by ity of tablet 00:00: 04:59 mouth [place] 00 :00 every 72 Medical (seventy-t Branch wo) hours for 2 days. fluconazole 2020- No [id number] 150mg Take 1 [facility] 150 mg 4-14 -17 tablet by ity of tablet 00:00: 04:59 mouth [place] 00 :00 every 72 Medical (seventy-t Branch wo) hours for 2 days. fluconazole 2020- No [id number] 150mg Take 1 [facility] 150 mg 4-14 -17 tablet by ity of tablet 00:00: 04:59 mouth [place] 00 :00 every 72 Medical (seventy-t Branch wo) hours for 2 days. insulin NPH Yes 60U 60 Units, U nivers and regular 4-13 Subcutaneo it y of human 70-30 12:30: us, BIDAC, [place] (HUMULIN 00 First dose Medic al 70-30 U-100 (after Branch INSULIN) last 100 unit/mL modificati (70-30) on) on Tue injection 09/08/20 at 60 Units 0730, Until Discontinu ed, Routine ezetimibe 2020- No [id number] 10mg Take 1 [facility] 10 mg -08 10-14 tablet by ity of tablet 00:00: 04:59 mouth [place] 00 :00 daily for Medical 30 days. Branch insulin NPH 2020- No [id number] 60U inject 60 Univers and regular 4-13 05-14 Units ity of human 70-30 00:00: 04:59 under the [place] (NOVOLIN 00 :00 skin 2 Medical 70/30 U-100 (two) Branch INSULIN) times 100 unit/mL daily (70-30) before injection breakfast and dinner for 30 days. ezetimibe 2020- No [id number] 10mg Take 1 [facility] 10 mg -13 -14 tablet by ity of tablet 00:00: 04:59 mouth [place] 00 :00 daily for Medical 30 days. Branch insulin NPH 2020- No [id number] 60U inject 60 Univers and regular 4-13 05-14 Units ity of human 70-30 00:00: 04:59 under the [place] (NOVOLIN 00 :00 skin 2 Medical 70/30 U-100 (two) Branch INSULIN) times 100 unit/mL daily (70-30) before injection breakfast and dinner for 30 days. ezetimibe 2020- No [id number] 10mg Take 1 [facility] 10 mg 4-13 05-14 tablet by ity of tablet 00:00: 04:59 mouth [place] 00 :00 daily for Medical 30 days. Branch insulin NPH 2020- No [id number] 60U inject 60 Univers and regular 4-13 05-14 Units ity of human 70-30 00:00: 04:59 under the [place] (NOVOLIN 00 :00 skin 2 Medical 70/30 U-100 (two) Branch INSULIN) times 100 unit/mL daily (70-30) before injection breakfast and dinner for 30 days. ezetimibe 2020- No [id number] 10mg Take 1 [facility] 10 mg 4-13 05-14 tablet by ity of tablet 00:00: 04:59 mouth [place] 00 :00 daily for Medical 30 days. Branch insulin NPH 2020- No [id number] 60U inject 60 Univers and regular 4-13 05-14 Units ity of human 70-30 00:00: 04:59 under the [place] (NOVOLIN 00 :00 skin 2 Medical 70/30 U-100 (two) Branch INSULIN) times 100 unit/mL daily (70-30) before injection breakfast and dinner for 30 days. ezetimibe 2020- No [id number] 10mg Take 1 [facility] 10 mg 4-13 05-14 tablet by ity of tablet 00:00: 04:59 mouth [place] 00 :00 daily for Medical 30 days. Branch insulin NPH 2020- No [id number] 60U inject 60 Univers and regular 4-13 05-14 Units ity of human 70-30 00:00: 04:59 under the [place] (NOVOLIN 00 :00 skin 2 Medical 70/30 U-100 (two) Branch INSULIN) times 100 unit/mL daily (70-30) before injection breakfast and dinner for 30 days. ezetimibe 2020- No [id number] 10mg Take 1 [facility] 10 mg 4-13 05-14 tablet by ity of tablet 00:00: 04:59 mouth [place] 00 :00 daily for Medical 30 days. Branch insulin NPH 2020- No [id number] 60U inject 60 Univers and regular 4-13 05-14 Units ity of human 70-30 00:00: 04:59 under the [place] (NOVOLIN 00 :00 skin 2 Medical 70/30 U-100 (two) Branch INSULIN) times 100 unit/mL daily (70-30) before injection breakfast and dinner for 30 days. ezetimibe 2020-2020- No [id number] 10mg Take 1 [facility] 10 mg 4-13 05-14 tablet by ity of tablet 00:00: 04:59 mouth [place] 00 :00 daily for Medical 30 days. Branch insulin NPH 2020- No [id number] 60U inject 60 Univers and regular 4-13 05-14 Units ity of human 70-30 00:00: 04:59 under the [place] (NOVOLIN 00 :00 skin 2 Medical 70/30 U-100 (two) Branch INSULIN) times 100 unit/mL daily (70-30) before injection breakfast and dinner for 30 days. ezetimibe 2020- No [id number] 10mg Take 1 [facility] 10 mg 4-13 05-14 tablet by ity of tablet 00:00: 04:59 mouth [place] 00 :00 daily for Medical 30 days. 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 insulin NPH 2020- No [id number] 60U inject 60 [facility] and regular 4-13 05-12 Units ity of human 70-30 00:00: 00:00 under the [place] (NOVOLIN 00 :00 skin 2 Medical 70/30 U-100 (two) Branch INSULIN) times 100 unit/mL daily (70-30) before injection breakfast and dinner for 30 days. insulin NPH 2020- No [id number] 60U inject 60 Univers and regular 4-13 05-12 Units ity of human 70-30 00:00: 00:00 under the [place] (NOVOLIN 00 :00 skin 2 Medical 70/30 [...] of tablet 23:21: mouth [place] 25 daily. [facility] Branch aspirin 81 2020-0 Yes 81mg [...] Medical Branch insulin NPH 2020-0 2020- No [id number] 90U inject 90 Univers and regular 4-12 05-13 Units ity of human 70-30 00:00: 04:59 under the [place] (NOVOLIN 00 :00 skin 2 Medical 70/30 U-100 (two) Branch INSULIN) times 100 unit/mL daily (70-30) before injection breakfast and dinner for 30 days. metoprolol 2020- No [id number] 50mg Take 0.5 Univers succinate 4-12 05-13 tablets by ity of XL 100 mg 00:00: 04:59 mouth [place] 24 hr 00 :00 daily for Medical tablet 30 days. Branch glipiZIDE No [id number] 10mg Take 1 [facility] 10 mg 4-12 05-13 tablet by ity of tablet 00:00: 04:59 mouth 2 [place] 00 :00 (two) Medical times Branch daily before breakfast and dinner for 30 days. SITagliptin No [id number] 100mg Take 1 [facility] 100 mg 4-12 05-13 tablet by ity of tablet 00:00: 04:59 mouth [place] 00 :00 evening Medical meal for Branch 30 days. insulin NPH 2020- No [id number] 90U inject 90 [facility] and regular 4-12 05-13 Units ity of human 70-30 00:00: 04:59 under the [place] (NOVOLIN 00 :00 skin 2 Medical 70/30 U-100 (two) Branch INSULIN) times 100 unit/mL daily (70-30) before injection breakfast and dinner for 30 days. metoprolol No [id number] 50mg Take 0.5 [facility] succinate 4-12 05-13 tablets by ity of XL 100 mg 00:00: 04:59 mouth [place] 24 hr 00 :00 daily for Medical tablet 30 days. Branch glipiZIDE No [id number] 10mg Take 1 [facility] 10 mg 4-12 05-13 tablet by ity of tablet 00:00: 04:59 mouth 2 [place] 00 :00 (two) Medical times [place] daily before breakfast and dinner for 30 days. SITagliptin No [id number] 100mg Take 1 [facility] 100 mg 4-12 05-13 tablet by ity of tablet 00:00: 04:59 mouth [place] 00 :00 evening Medical meal for Branch 30 days. insulin NPH No [id number] 90U inject 90 Univers and regular 4-12 05-13 Units ity of human 70-30 00:00: 04:59 under the [place] (NOVOLIN 00 :00 skin 2 Medical 70/30 U-100 (two) Branch INSULIN) times 100 unit/mL daily (70-30) before injection breakfast and dinner for 30 days. metoprolol 2020- No [id number] 50mg Take 0.5 [facility] succinate 4-12 05-13 tablets by ity of XL 100 mg 00:00: 04:59 mouth [place] 24 hr 00 :00 daily for Medical tablet 30 days. Branch glipiZIDE 2020- No [id number] 10mg Take 1 [facility] 10 mg 4-12 05-13 tablet by ity of tablet 00:00: 04:59 mouth 2 [place] 00 :00 (two) Medical times Branch daily before breakfast and dinner for 30 days. SITagliptin 2020- No [id number] 100mg Take 1 [facility] 100 mg 4-12 05-13 tablet by ity of tablet 00:00: 04:59 mouth [place] 00 :00 evening Medical meal for Branch 30 days. insulin NPH 2020- No [id number] 90U inject 90 [facility] and regular 4-12 05-13 Units ity of human 70-30 00:00: 04:59 under the [place] (NOVOLIN 00 :00 skin 2 Medical 70/30 U-100 (two) Branch INSULIN) times 100 unit/mL daily (70-30) before injection breakfast and dinner for 30 days. metoprolol 2020- No [id number] 50mg Take 0.5 Univers succinate 4-12 05-13 tablets by ity of XL 100 mg 00:00: 04:59 mouth [place] 24 hr 00 :00 daily for Medical tablet 30 days. Branch glipiZIDE 2020- No [id number] 10mg Take 1 [facility] 10 mg 4-12 05-13 tablet by ity of tablet 00:00: 04:59 mouth 2 [place] 00 :00 (two) Medical times Branch daily before breakfast and dinner for 30 days. SITagliptin 2020- No [id number] 100mg Take 1 [facility] 100 mg 4-12 05-13 tablet by ity of tablet 00:00: 04:59 mouth [place] 00 :00 evening Medical meal for Branch 30 days. insulin NPH 2020- No [id number] 90U inject 90 Univers and regular 4-12 05-13 Units ity of human 70-30 00:00: 04:59 under the [place] (NOVOLIN 00 :00 skin 2 Medical 70/30 U-100 (two) Branch INSULIN) times 100 unit/mL daily (70-30) before injection breakfast and dinner for 30 days. metoprolol 2020- No [id number] 50mg Take 0.5 Univers succinate 4- 05-13 tablets by ity of XL 100 mg 00:00: 04:59 mouth [place] 24 hr 00 :00 daily for Medical tablet 30 days. [place] glipiZIDE 2020- No [id number] 10mg Take 1 Univers 10 mg - 05-13 tablet by ity of tablet 00:00: 04:59 mouth 2 [place] 00 :00 (two) Medical times [place] daily before breakfast and dinner for 30 days. SITagliptin 2020- No [id number] 100mg Take 1 [facility] 100 mg 4- 05-13 tablet by ity of tablet 00:00: 04:59 mouth [place] 00 :00 evening Medical meal for [place] 30 days. metoprolol No [id number] 50mg Take 0.5 Univers succinate 4- 05-13 tablets by ity of XL 100 mg 00:00: 04:59 mouth [place] 24 hr 00 :00 daily for Medical tablet 30 days. [place] SITagliptin 2020- No [id number] 100mg Take 1 [facility] 100 mg 4- 05-13 tablet by ity of tablet 00:00: 04:59 mouth [place] 00 :00 evening Medical meal for Branch 30 days. metoprolol 2020- No [id number] 50mg Take 0.5 Univers succinate 4-12 05-13 tablets by ity of XL 100 mg 00:00: 04:59 mouth [place] 24 hr 00 :00 daily for Medical tablet 30 days. [place] SITagliptin 2020- No [id number] 100mg Take 1 [facility] 100 mg 4-12 05-13 tablet by ity of tablet 00:00: 04:59 mouth [place] 00 :00 evening Medical meal for Branch 30 days. metoprolol 2020- No [id number] 50mg Take 0.5 [facility] succinate 4- 05-13 tablets by ity of XL 100 mg 00:00: 04:59 mouth [place] 24 hr 00 :00 daily for Medical tablet 30 days. Branch metoprolol 2020- No [id number] 50mg Take 0.5 Univers succinate 4- 05-13 [...] :00 involving daily for Medi [place] tablet [place] 30 days. 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 Branch coronary artery of [place] heart without angina pectoris SITagliptin 2020- No Uncontrolle 100mg Take 1 Univers 100 mg 4- 05-13 d type 2 tablet by ity of tablet 00:00: 04:59 diabetes mouth with [place] 00 :00 mellitus evening Medical with meal for Branch hyperglycem 30 days. ia SITagliptin 2020- No [id number] 100mg Take 1 [facility] 100 mg 4-12 05-12 tablet by ity of tablet 00:00: 00:00 mouth [place] 00 :00 evening Medical meal for Branch 30 days. SITagliptin 2020- No [id number] 100mg Take 1 [facility] 100 mg 4-12 05-12 tablet by ity of tablet 00:00: 00:00 mouth [place] 00 :00 evening Medical meal for Branch 30 days. insulin NPH 2020- No [id number] 90U inject 90 Univers and regular 4-12 05-06 Units ity of human 70-30 00:00: 00:00 under the [place] (NOVOLIN 00 :00 skin 2 Medical 70/30 U-100 (two) Branch INSULIN) times 100 unit/mL daily (70-30) before injection breakfast and dinner for 30 days. glipiZIDE 2020- No [id number] 10mg Take 1 Univers 10 mg 4-12 05-06 tablet by ity of tablet 00:00: 00:00 mouth 2 [place] 00 :00 (two) Medical times Branch daily before breakfast and dinner for 30 days. insulin NPH 2020- No [id number] 90U inject 90 Univers and regular 4-12 05-06 Units ity of human 70-30 00:00: 00:00 under the [place] (NOVOLIN 00 :00 skin 2 Medical 70/30 U-100 (two) Branch INSULIN) times 100 unit/mL daily (70-30) before injection breakfast and dinner for 30 days. glipiZIDE 2020- No [id number] 10mg Take 1 Univers 10 mg 4- 05-06 tablet by ity of tablet 00:00: 00:00 mouth 2 [place] 00 :00 (two) Medical times Branch daily before breakfast and dinner for 30 days. 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 lactobacill 2020- No [id number] 1{tbl} Take 1 Univers us 09-07-23 tablet by ity of acidophilus 00:00: 04:59 mouth 2 [place] 25 million 00 :00 (two) Medical cell -100 times Branch mg captab daily for 10 days. lactobacill 2020- No [id number] 1{tbl} Take 1 Univers us 09-0723 tablet by ity of acidophilus 00:00: 04:59 mouth 2 [place] 25 million 00 :00 (two) Medical cell -100 times Branch mg captab daily for 10 days. lactobacill 2020- No [id number] 1{tbl} Take 1 Univers us 09-0723 tablet by ity of acidophilus 00:00: 04:59 mouth 2 [place] 25 million 00 :00 (two) Medical cell -100 times Branch mg captab daily for 10 days. metroNIDAZO 2020- No [id number] 500mg Take 1 Univers LE 500 mg 09-07 tablet by ity of tablet 00:00: 04:59 mouth 2 [place] 00 :00 (two) Medical times Branch daily for 6 days. ciprofloxac 2020- No [id number] 750mg Take 1 Univers in HCl 750 09-07 tablet by ity of mg tablet 00:00: 04:59 mouth [place] 00 :00 every 12 Medical (twelve) Branch hours for 6 days. metroNIDAZO 2020- No [id number] 500mg Take 1 Univers LE 500 mg 09-07 tablet by ity of tablet 00:00: 04:59 mouth 2 [place] 00 :00 (two) Medical times Branch daily for 6 days. ciprofloxac 2020- No [id number] 750mg Take 1 Univers in HCl 750 09-07 tablet by ity of mg tablet 00:00: 04:59 mouth [place] 00 :00 every 12 Medical (twelve) Branch hours for 6 days. metroNIDAZO 2020- No [id number] 500mg Take 1 Univers LE 500 mg 09-07 tablet by ity of tablet 00:00: 04:59 mouth 2 [place] 00 :00 (two) Medical times [place] daily for 6 days. ciprofloxac 2020- No [id number] 750mg Take 1 Univers in HCl 750 09-07 tablet by ity of mg tablet 00:00: 04:59 mouth [place] 00 :00 every 12 Medical (twelve) Branch hours for 6 days. cosyntropin 2020- No 250ug 250 mcg, Univers (CORTROSYN) 09-06 Slow IV ity of injection 22:45: 22:06 Push, [place] 250 mcg 00 :00 ONCE, 1 Medical dose, [facility] 09/06/20 at 1745, Routine metoprolol Yes 50mg 50 mg, Unive rs succinate 09-06 Oral, ity of XL (TOPROL 14:00: DAILY, [place] XL) tablet 00 First dose Med ical 50 mg (after Branch last modificati on) on [place] 09/06/20 at 0900, Until Discontinu ed, Routine ezetimibe Yes 10mg 10 mg, Univer s (ZETIA) 09-06 Oral, ity of tablet 10 14:00: DAILY, [place] mg 00 First dose Medical on [facility] 09/06/20 at 0900, Until Discontinu ed, Routine fluconazole Yes 150mg 150 mg, Un cali (DIFLUCAN) 09-06 Oral, ity of tablet 150 14:00: Q72H, [place] mg 00 First dose Medical on [facility] 09/06/20 at 0900, Until Discontinu ed, TRANG
[...] [place] gram/50 mL 00 :00 dose, Sat [facility] blanquita (8 %) IV 09/05/20 at [facility] h Piggyback 4 2014, g Routine KCL [...] of 1,000 mg in 16:00: 15:59 Piggyback, [place] NaCl 0.9% 00 :00 Q12H ABX, Medic al (NS) 50 mL 14 doses, Bran ch MINI-BAG First dose (after last reorder) on [facility] 09/05/20 at 1100, Last dose on Mon09/11/20 at 2300, 50 mL
Reas on for Anti-Infec tive: Documented Infection< br>Documen anthony Infection Site: Urine
D uration of Therapy: Other (see Comments) enoxaparin Yes 40mg 40 mg, Unive rs (LOVENOX) 4-10 Subcutaneo ity of injection 14:00: us, DAILY, [place] 40 mg 00 First dose Medical on [facility] Branch 09/05/20 at 0900, Until Discontinu ed, Routine pantoprazol Yes 40mg 40 mg, Univ ers e 4-10 Oral, ity of (PROTONIX) 14:00: DAILY, [place] EC tablet 00 First dose Medi blanquita 40 mg on [facility] Branch 09/05/20 at 0900, Until Discontinu ed, Routine clopidogreL Yes 75mg 75 mg, Univ ers (PLAVIX) 4-10 Oral, ity of tablet 75 14:00: DAILY, [place] mg 00 First dose Medical on [facility] Branch 09/05/20 at 0900, Until Discontinu ed, Routine metoprolol 2020- No 100mg 100 mg, Un cali succinate 09-05 Oral, ity of XL (TOPROL 14:00: 11:17 DAILY, [place] XL) tablet 00 :33 First dose Med ical 100 mg on [facility] Branch 09/05/20 at 0900, Until Discontinu ed, Routine isosorbide No 30mg 30 mg, Univ ers mononitrate 09-05- Oral, ity of (IMDUR) 24 14:00: 15:58 DAILY, [place] hr tablet 00 :51 First dose Medi blan[place] 30 mg on [facility] Branch 09/05/20 at 0900, Until Discontinu ed, Routine furosemide No 20mg 20 mg, Univ ers (LASIX) 4 04-10 Oral, ity of tablet 20 14:00: 22:14 DAILY, [place] mg 00 :49 First dose Medical on [facility] 09/05/20 at 0900, Until Discontinu ed, Routine docusate Yes 100mg 100 mg, Unive rs (COLACE) 4-10 Oral, BID, ity o f capsule 100 13:00: First dose [place] mg 00 on [facility] Medical 09/05/20 at Branch 0800, Until Discontinu ed, Routine metFORMIN Yes 1000mg 1,000 mg, U nivers (GLUCOPHAGE 4-10 Oral, BID ity of ) tablet 13:00: MEALS, [place] 1,000 mg 00 First dose Medic al on [facility] Branch 09/05/20 at 0800, Until Discontinu ed, Routine glipiZIDE Yes 10mg 10 mg, Univer s (GLUCOTROL) 4-10 Oral, ity of tablet 10 12:30: BIDAC, [place] mg 00 First dose Medical on [facility] 09/05/20 at 0730, Until Discontinu ed, Routine insulin NPH No 90U 90 Units, Univers and regular 09-0512 Subcutaneo i ty of human 70-30 12:30: 21:48 us, BIDAC, [place] (HUMULIN 00 :25 First dose Medic al 70-30 U-100 (after Branch INSULIN) last 100 unit/mL modificati (70-30) on) on [facility] injection 09/05/20 at 90 Units 0730, Until [...] 4-10 Oral, ity of (TYLENOL 09:31: TIDPRN, [place] #3) 300-30 12 Starting Medic al mg tablet 2 Sat Branch tablet 09/05/20 at 0431, Until Discontinu ed, Routine, Pain (scale 4-6) Sliding Yes Subcutaneo [facility] ers Scale 4-10 us, TID ity of Insulin - 09:30: MEALS+HS, [place] Lispro 00 First dose Medical (HumaLOG) + on Sat Branch [facility] 09/05/20 at Testing 0430, Until Discontinu ed, Routine gabapentin 0 Yes 800mg 800 mg, Uni vers (NEURONTIN) 4-10 Oral, TID, it y of tablet 800 09:30: First dose [place] mg 00 on [facility] Medical 09/05/20 at Branch 0430, Until Discontinu ed, Routine atorvastati Yes 80mg 80 mg, Univ ers n (LIPITOR) 4-10 Oral, QHS, it y of tablet 80 09:30: First dose [place] mg 00 on [facility] Medical 09/05/20 at Branch 0430, Until Discontinu ed, Routine aspirin Yes 81mg 81 mg, Univers chewable 4-10 Oral, QAM ity of tablet 81 09:30: WITH [place] mg 00 BREAKFAST, Medical First dose Branch on 09/05/20 at 0430, Until Discontinu ed, Routine lactobacill Yes 1{tbl} 1 tablet, Univers us 4-10 Oral, BID, ity of acidophilus 09:30: First dose [place] (ACIDOPHILL 00 on Sat Medica l US) [...] mEq 00 :22 First dose Medical on [facility] Branch 09/05/20 at 0430, Until Discontinu ed, Routine ondansetron Yes 4mg 4 mg, Slow Univers (ZOFRAN 4-10 IV Push, ity of (PF)) 09:29: Q6HPRN, [place] injection 4 42 Starting Medi blanquita mg [facility] 09/05/20 at 0429, Until Discontinu ed, Routine, Nausea and Vomiting (N/V) glucagon Yes 1mg 1 mg, Univers (GLUCAGEN 4-10 Intramuscu ity of DIAGNOSTIC 09:28: lar, PRN, [place] KIT) 38 Starting Medical injection 1 [facility] 09/05/20 at 0428, Until Discontinu ed, TRANG, [...] of 1,000 mg in 05:15: 04:49 Piggyback, [place] NaCl 0.9% 00 :00 ONCE, 1 Medical (NS) 50 mL dose, Sat Bran ch MINI-BAG 09/05/20 at 0015, 50 mL
Reas on for Anti-Infec tive: Documented Infection< br>Documen anthony Infection Site: Urine
D uration of Therapy: Other (see Comments) insulin 2020- No 18U 18 Units, Univ ers regular 09-05-10 Subcutaneo ity o f human 04:30: 03:27 , ONCE, [place] (HUMULIN R) 00 :00 1 dose, Medic al injection 09/04/20 Bran ch 18 Units at 2330, Routine atorvastati Yes [id number] 80mg Take 1 Univers n 80 mg 3-10 tablet by ity of tablet 00:00: mouth at [place] [address] bedtime. Medical Branch atorvastati Yes [id number] 80mg Take 1 Univers n 80 mg 3-10 tablet by ity of tablet 00:00: mouth at [place] [address] bedtime. Medical Branch atorvastati Yes [id number] 80mg Take 1 Univers n 80 mg 3-10 tablet by ity of tablet 00:00: mouth at [place] [address] bedtime. Medical Branch atorvastati Yes [id number] 80mg Take 1 Univers n 80 mg 3-10 tablet by ity of tablet 00:00: mouth at [place] [address] bedtime. Medical Branch atorvastati Yes [id number] 80mg Take 1 Univers n 80 mg 3-10 tablet by ity of tablet 00:00: mouth at [place] [address] bedtime. Medical Branch atorvastati 2020- No [id number] 80mg Take 1 Univers n 80 mg [...] DAILY WITH Branch MEALS isosorbide 2021-0 Yes [id number] 30mg Take 1 Univers mononitrate 1-11 tablet by ity of 30 mg 24 hr 00:00: mouth [place] tablet 00 daily. Medical Branch metoprolol 1-0 Yes [id number] 100mg Take 1 [facility] succinate 1-11 tablet by ity o f XL 100 mg 00:00: mouth [place] 24 hr 00 daily. Medical tablet Branch pantoprazol Yes [id number] 40mg Take 1 Univers e 40 mg EC 1-11 tablet by ity of tablet 00:00: mouth [place] 00 daily. Medical Branch isosorbide 0 Yes [id number] 30mg Take 1 [facility] mononitrate 1-11 tablet by ity of 30 mg 24 hr 00:00: mouth [place] tablet 00 daily. Medical Branch metoprolol Yes [id number] 100mg Take 1 [facility] succinate 1-11 tablet by ity o f XL 100 mg 00:00: mouth [place] 24 hr 00 daily. Medical tablet Branch pantoprazol Yes [id number] 40mg Take 1 Univers e 40 mg EC 1-11 tablet by ity of tablet 00:00: mouth [place] 00 daily. Medical Branch isosorbide Yes [id number] 30mg Take 1 [facility] mononitrate 1-11 tablet by ity of 30 mg 24 hr 00:00: mouth [place] tablet 00 daily. Medical Branch metoprolol Yes [id number] 100mg Take 1 [facility] succinate 1-11 tablet by ity o f XL 100 mg 00:00: mouth [place] 24 hr 00 daily. Medical tablet Branch pantoprazol Yes [id number] 40mg Take 1 Univers e 40 mg EC 1-11 tablet by ity of tablet 00:00: mouth [place] 00 daily. Medical Branch isosorbide Yes [id number] 30mg Take 1 [facility] mononitrate 1-11 tablet by ity of 30 mg 24 hr 00:00: mouth [place] tablet 00 daily. Medical Branch metoprolol Yes [id number] 100mg Take 1 [facility] succinate 1-11 tablet by ity o f XL 100 mg 00:00: mouth [place] 24 hr 00 daily. Medical tablet Branch pantoprazol Yes [id number] 40mg Take 1 Univers e 40 mg EC 1-11 tablet by ity of tablet 00:00: mouth [place] 00 daily. Medical Branch isosorbide Yes [id number] 30mg Take 1 [facility] mononitrate 1-11 tablet by ity of 30 mg 24 hr 00:00: mouth [place] tablet 00 daily. Medical Branch metoprolol Yes [id number] 100mg Take 1 [facility] succinate 1-11 tablet by ity o f XL 100 mg 00:00: mouth [place] 24 hr 00 daily. Medical tablet Branch pantoprazol Yes [id number] 40mg Take 1 Univers e 40 mg EC 1-11 tablet by ity of tablet 00:00: mouth [place] 00 daily. Medical Branch isosorbide Yes [id number] 30mg Take 1 [facility] mononitrate 1-11 tablet by ity of 30 mg 24 hr 00:00: mouth [place] tablet 00 daily. Medical Branch metoprolol Yes [id number] 100mg Take 1 [facility] succinate 1-11 tablet by ity o f XL 100 mg 00:00: mouth [place] 24 hr 00 daily. Medical tablet Branch pantoprazol Yes [id number] 40mg Take 1 Univers e 40 mg EC 1-11 tablet by ity of tablet 00:00: mouth [place] 00 daily. Medical Branch isosorbide Yes [id number] 30mg Take 1 [facility] mononitrate 1-11 tablet by ity of 30 mg 24 hr 00:00: mouth [place] tablet 00 daily. Medical Branch metoprolol Yes [id number] 100mg Take 1 [facility] succinate 1-11 tablet by ity o f XL 100 mg 00:00: mouth [place] 24 hr 00 daily. Medical tablet Branch pantoprazol Yes [id number] 40mg Take 1 Univers e 40 mg EC 1-11 tablet by ity of tablet 00:00: mouth [place] 00 daily. Medical Branch isosorbide Yes [id number] 30mg Take 1 [facility] mononitrate 1-11 tablet by ity of 30 mg 24 hr 00:00: mouth [place] tablet 00 daily. Medical Branch metoprolol Yes [id number] 100mg Take 1 [facility] succinate 1-11 tablet by ity o f XL 100 mg 00:00: mouth [place] 24 hr 00 daily. Medical tablet Branch pantoprazol Yes [id number] 40mg Take 1 Univers e 40 mg EC 1-11 tablet by ity of tablet 00:00: mouth [place] 00 daily. Medical Branch isosorbide Yes [id number] 30mg Take 1 [facility] mononitrate 1-11 tablet by ity of 30 mg 24 hr 00:00: mouth [place] tablet 00 daily. Medical Branch metoprolol 0 Yes [id number] 100mg Take 1 [facility] succinate 1-11 tablet by ity o f XL 100 mg 00:00: mouth [place] 24 hr 00 daily. Medical tablet Branch pantoprazol Yes [id number] 40mg Take 1 Univers e 40 mg EC 1-11 tablet by ity of tablet 00:00: mouth [place] 00 daily. [facility] isosorbide 2020-0 Yes [id number] 30mg Take 1 [facility] mononitrate 1-11 tablet by [facility] 30 mg 24 hr 00:00: mouth [place] tablet 00 daily. [facility] metoprolol Yes [id number] 100mg Take 1 [facility] succinate 1-11 tablet by [facility] o f XL 100 mg 00:00: mouth [place] 24 hr 00 daily. Medical tablet Branch pantoprazol Yes [id number] 40mg Take 1 [facility] e 40 mg EC 1-11 tablet by [facility] of tablet 00:00: mouth [place] 00 daily. [facility] isosorbide 2020-0 Yes [id number] 30mg Take 1 [facility] mononitrate 1-11 tablet by [facility] of 30 mg 24 hr 00:00: mouth [place] tablet 00 daily. [facility] metoprolol Yes [id number] 100mg Take 1 [facility] succinate 1-11 tablet by [facility] o f XL 100 mg 00:00: mouth [place] 24 hr 00 daily. Medical tablet Branch pantoprazol Yes [id number] 40mg Take 1 [facility] e 40 mg EC 1-11 tablet by [facility] of tablet 00:00: mouth [place] 00 daily. [facility] pantoprazol 0 Yes [id number] 40mg Take 1 [facility] e 40 mg EC 1-11 tablet by [facility] of tablet 00:00: mouth [place] 00 daily. [facility] pantoprazol 0 Yes [id number] 40mg Take 1 [facility] e 40 mg EC 1-11 tablet by [facility] of tablet 00:00: mouth [place] 00 daily. [facility] pantoprazol Yes [id number] 40mg Take 1 [facility] e 40 mg EC 1-11 tablet by [facility] of tablet 00:00: mouth [place] 00 daily. [facility] pantoprazol Yes [id number] 40mg Take 1 [facility] e 40 mg EC 1-11 tablet by [facility] of tablet 00:00: mouth [place] 00 daily. [facility] pantoprazol Yes [id number] 40mg Take 1 [facility] e 40 mg EC 1-11 tablet by [facility] of tablet 00:00: mouth [place] 00 daily. [facility] pantoprazol Yes [id number] 40mg Take 1 [facility] e 40 mg EC 1-11 tablet by [facility] of tablet 00:00: mouth [place] 00 daily. [facility] pantoprazol Yes [id number] 40mg Take 1 [facility] e 40 mg EC 1-11 tablet by [facility] of tablet 00:00: mouth [place] 00 daily. [facility] pantoprazol Yes [id number] 40mg Take 1 [facility] e 40 mg EC 1-11 tablet by [facility] of tablet 00:00: mouth [place] 00 daily. [facility] pantoprazol Yes [id number] 40mg Take 1 [facility] e 40 mg EC 1-11 tablet by [facility] of tablet 00:00: mouth [place] 00 daily. [facility] pantoprazol Yes [id number] 40mg Take 1 [facility] e 40 mg EC 1-11 tablet by [facility] of tablet 00:00: mouth [place] 00 daily. [facility] pantoprazol Yes [id number] 40mg Take 1 [facility] e 40 mg EC 1-11 tablet by [facility] of tablet 00:00: mouth [place] 00 daily. [facility] pantoprazol Yes [id number] 40mg Take 1 [facility] e 40 mg EC 1-11 tablet by [facility] of tablet 00:00: mouth [place] 00 daily. [facility] pantoprazol Yes [id number] 40mg Take 1 [facility] e 40 mg EC 1-11 tablet by [facility] tablet 00:00: mouth [place] 00 daily. [facility] pantoprazol Yes [id number] 40mg Take 1 [facility] e 40 mg EC 1-11 tablet by [facility] tablet 00:00: mouth [place] 00 daily. [facility] pantoprazol Yes [id number] 40mg Take 1 [facility] e 40 mg EC 1-11 tablet by [facility] of tablet 00:00: mouth [place] 00 daily. [facility] pantoprazol Yes [id number] 40mg Take 1 [facility] e 40 mg EC 1-11 tablet by [facility] of tablet 00:00: mouth [place] 00 daily. [facility] pantoprazol Yes [id number] 40mg Take 1 [facility] e 40 mg EC 1-11 tablet by [facility] tablet 00:00: mouth [place] 00 daily. [facility] pantoprazol Yes [id number] 40mg Take 1 [facility] e 40 mg EC 1-11 tablet by [facility] of tablet 00:00: mouth [place] 00 daily. [facility] pantoprazol Yes [id number] 40mg Take 1 [facility] e 40 mg EC 1-11 tablet by [facility] of tablet 00:00: mouth [place] 00 daily. [facility] pantoprazol Yes [id number] 40mg Take 1 [facility] e 40 mg EC 1-11 tablet by [facility] of tablet 00:00: mouth [place] 00 daily. [facility] pantoprazol Yes [id number] 40mg Take 1 [facility] e 40 mg EC 1-11 tablet by [facility] of tablet 00:00: mouth [place] 00 daily. [facility] pantoprazol Yes [id number] 40mg Take 1 [facility] e 40 mg EC 1-11 tablet by [facility] of tablet 00:00: mouth [place] 00 daily. [facility] pantoprazol Yes [id number] 40mg Take 1 [facility] e 40 mg EC 1-11 tablet by [facility] of tablet 00:00: mouth [place] 00 daily. [facility] pantoprazol Yes [id number] 40mg Take 1 [facility] e 40 mg EC 1-11 tablet by [facility] of tablet 00:00: mouth [place] 00 daily. [facility] pantoprazol Yes [id number] 40mg Take 1 [facility] e 40 mg EC 1-11 tablet by [facility] of tablet 00:00: mouth [place] 00 daily. [facility] pantoprazol Yes [id number] 40mg Take 1 [facility] e 40 mg EC 1-11 tablet by [facility] of tablet 00:00: mouth [place] 00 daily. [facility] pantoprazol Yes [id number] 40mg Take 1 [facility] e 40 mg EC 1-11 tablet by [facility] of tablet 00:00: mouth [place] 00 daily. [facility] pantoprazol Yes [id number] 40mg Take 1 [facility] e 40 mg EC 1-11 tablet by [facility] of tablet 00:00: mouth [place] 00 daily. [facility] pantoprazol Yes [id number] 40mg Take 1 [facility] e 40 mg EC 1-11 tablet by [facility] of tablet 00:00: mouth [place] 00 daily. [facility] pantoprazol Yes [id number] 40mg Take 1 [facility] e 40 mg EC 1-11 tablet by [facility] of tablet 00:00: mouth [place] 00 daily. [facility] pantoprazol Yes [id number] 40mg Take 1 [facility] e 40 mg EC 1-11 tablet by [facility] of tablet 00:00: mouth [place] 00 daily. [facility] pantoprazol Yes [id number] 40mg Take 1 [facility] e 40 mg [...] disease daily. [facility] isosorbide 2020- No [id number] 30mg Take 1 [facility] mononitrate 06-08-12 tablet by it y [facility] 30 mg 24 hr 00:00: 00:[place] 00 :00 daily. [facility] metoprolol 2020- No [id number] 100mg Take 1 [facility] succinate -04 01-12 tablet by [facility] XL 100 mg 00:00: 00:00 mouth [place] 24 hr 00 :00 daily. Medical tablet Branch methocarbam Yes [id number] 500mg Take 1 [facility] oL 500 mg 1-08 tablet by [facility] o f tablet 00:00: mouth 4 [place] 00 (four) Medical times Branch daily as needed (muscle spasm). isosorbide Yes [id number] 30mg Take 1 [facility] mononitrate 1-08 tablet by [facility] of 30 mg 24 hr 00:00: mouth [place] tablet 00 daily. [facility] potassium Yes [id number] 10meq Take 1 [facility] n[facility] chloride 10 1-08 tablet by [facility] of mEq CR 00:00: mouth [place] tablet 00 daily. [facility] methocarbam 2021-0 Yes [id number] 500mg Take 1 [facility] oL 500 mg 1-08 tablet by [facility] o f tablet 00:00: mouth 4 [place] 00 (four) Medical times Branch daily as needed (muscle spasm). potassium 2020-0 Yes [id number] 10meq Take 1 [facility] chloride 10 1-08 tablet by [facility] of mEq CR 00:00: mouth [place] tablet 00 daily. [facility] methocarbam Yes [id number] 500mg Take 1 [facility] oL 500 mg 1-08 tablet by [facility] o f tablet 00:00: mouth 4 [place] 00 (four) Medical times Branch daily as needed (muscle spasm). potassium 2020-0 Yes [id number] 10meq Take 1 [facility] chloride 10 1-08 tablet by [facility] of mEq CR 00:00: mouth [place] tablet 00 daily. [facility] methocarbam Yes [id number] 500mg Take 1 [facility] oL 500 mg 1-08 tablet by [facility] o f tablet 00:00: mouth 4 [place] 00 (four) Medical times Branch daily as needed (muscle spasm). potassium Yes [id number] 10meq Take 1 [facility] n[facility] chloride 10 1-08 tablet by [facility] of mEq CR 00:00: mouth [place] tablet 00 daily. [facility] methocarbam Yes [id number] 500mg Take 1 [facility] oL 500 mg 1-08 tablet by [facility] o f tablet 00:00: mouth 4 [place] 00 (four) Medical times Branch daily as needed (muscle spasm). potassium 0 Yes [id number] 10meq Take 1 [facility] n[facility] chloride 10 1-08 tablet by [facility] of mEq CR 00:00: mouth [place] tablet 00 daily. [facility] methocarbam Yes [id number] 500mg Take 1 [facility] oL 500 mg 1-08 tablet by [facility] o f tablet 00:00: mouth 4 [place] 00 (four) Medical times Branch daily as needed (muscle spasm). potassium 0 Yes [id number] 10meq Take 1 [facility] nivers chloride 10 1-08 tablet by [facility] of mEq CR 00:00: mouth [place] tablet 00 daily. [facility] methocarbam Yes [id number] 500mg Take 1 [facility] oL 500 mg 1-08 tablet by [facility] o f tablet 00:00: mouth 4 [place] 00 (four) Medical times Branch daily as needed (muscle spasm). potassium Yes [id number] 10meq Take 1 [facility] n[facility] chloride 10 1-08 tablet by ity of mEq CR 00:00: mouth [place] tablet 00 daily. [facility] methocarbam Yes [id number] 500mg Take 1 [facility] oL 500 mg 1-08 tablet by [facility] o f tablet 00:00: mouth 4 [place] 00 (four) Medical times Branch daily as needed (muscle spasm). potassium Yes [id number] 10meq Take 1 [facility] nivers chloride 10 1-08 tablet by [facility] of mEq CR 00:00: mouth [place] tablet 00 daily. [facility] methocarbam Yes [id number] 500mg Take 1 [facility] oL 500 mg 1-08 tablet by [facility] o f tablet 00:00: mouth 4 [place] 00 (four) Medical times Branch daily as needed (muscle spasm). potassium Yes [id number] 10meq Take 1 [facility] n[facility] chloride 10 1-08 tablet by [facility] of mEq CR 00:00: mouth [place] tablet 00 daily. [facility] potassium Yes [id number] 10meq Take 1 [facility] n[facility] chloride 10 1-08 tablet by [facility] of mEq CR 00:00: mouth [place] tablet 00 daily. [facility] potassium Yes [id number] 10meq Take 1 [facility] n[facility] chloride 10 1-08 tablet by [facility] of mEq CR 00:00: mouth [place] tablet 00 daily. [facility] potassium Yes [id number] 10meq Take 1 [facility] n[facility] chloride 10 1-08 tablet by [facility] of mEq CR 00:00: mouth [place] tablet 00 daily. Medical [facility] potassium 2020- No [id number] 10meq Take 1 [facility] chloride 10 1-08 -12 tablet by it y of mEq CR 00:00: 00:00 mouth [place] tablet 00 :00 daily. [facility] methocarbam 2020- No [id number] 500mg Take 1 [facility] oL 500 mg -08 -09 tablet by ity of tablet 00:00: 00:00 mouth 4 [place] 00 :00 (four) Medical times Branch daily as needed (muscle spasm). methocarbam 2020- No [id number] 500mg Take 1 [facility] oL 500 mg -08 04-09 tablet by it[facility] of tablet 00:00: 00:00 mouth 4 [place] 00 :00 (four) Medical times Branch daily as needed (muscle spasm). isosorbide 2020-0 2021- No [id number] 30mg Take 1 [facility] mononitrate 06-05 tablet by it y of 30 mg 24 hr 00:00: 00:00 mouth [place] tablet 00 :00 daily. [facility] gabapentin 2020-1 Yes [id number] 800mg Take 1 [facility] 800 mg 2-22 tablet by it[facility] of tablet 00:00: mouth 3 (three) Medical times Branch daily. gabapentin 2020-1 Yes [id number] 800mg Take 1 [facility] 800 mg 2-22 tablet by it[facility] of tablet 00:00: mouth 3 (three) Medical times Branch daily. gabapentin 2020-1 Yes [id number] 800mg Take 1 [facility] 800 mg 2-22 tablet by [facility] of tablet 00:00: mouth 3 (three) Medical times Branch daily. gabapentin 2020-1 Yes [id number] 800mg Take 1 [facility] 800 mg 2-22 tablet by [facility] of tablet 00:00: mouth 3 (three) Medical times Branch daily. gabapentin 2020-1 Yes [id number] 800mg Take 1 [facility] 800 mg 2-22 tablet by it[facility] of tablet 00:00: mouth 3 (three) Medical times Branch daily. gabapentin 2020-1 Yes [id number] 800mg Take 1 [facility] 800 mg 2-22 tablet by it[facility] of tablet 00:00: mouth 3 (three) Medical times Branch daily. gabapentin 2020-1 Yes [id number] 800mg Take 1 [facility] 800 mg 2-22 tablet by it[facility] of tablet 00:00: mouth 3 (three) Medical times Branch daily. gabapentin 2020-1 Yes [id number] 800mg Take 1 [facility] 800 mg 2-22 tablet by it[facility] of tablet 00:00: mouth 3 (three) Medical times Branch daily. gabapentin 2020-1 Yes [id number] 800mg Take 1 [facility] 800 mg 2-22 tablet by it[facility] of tablet 00:00: mouth 3 (three) Medical times Branch daily. gabapentin 2020-1 Yes [id number] 800mg Take 1 [facility] 800 mg 2-22 tablet by [facility] of tablet 00:00: mouth 3 (three) Medical times Branch daily. gabapentin 2020-1 Yes [id number] 800mg Take 1 [facility] 800 mg 2-22 tablet by it[facility] of tablet 00:00: mouth 3 (three) Medical times Branch daily. gabapentin 2020-1 Yes [id number] 800mg Take 1 [facility] 800 mg 2-22 tablet by it[facility] of tablet 00:00: mouth 3 (three) Medical times Branch daily. gabapentin 2020-1 Yes [id number] 800mg Take 1 [facility] 800 mg 2-22 tablet by it[facility] of tablet 00:00: mouth 3 (three) Medical times Branch daily. gabapentin 2020-1 Yes [id number] 800mg Take 1 [facility] 800 mg 2-22 tablet by it[facility] of tablet 00:00: mouth 3 (three) Medical times Branch daily. gabapentin 2020-1 Yes [id number] 800mg Take 1 [facility] 800 mg 2-22 tablet by ity of tablet 00:00: mouth (three) Medical times Branch daily. gabapentin 2020-1 Yes [id number] 800mg Take 1 [facility] 800 mg 2-22 tablet by it[facility] of tablet 00:00: mouth (three) Medical times Branch daily. gabapentin 2020-1 Yes [id number] 800mg Take 1 [facility] 800 mg 2-22 tablet by ity of tablet 00:00: mouth (three) Medical times Branch daily. gabapentin 2020-1 Yes [id number] 800mg Take 1 [facility] 800 mg 2-22 tablet by it[facility] of tablet 00:00: mouth (three) Medical times Branch daily. gabapentin 2020-1 Yes [id number] 800mg Take 1 [facility] 800 mg 2-22 tablet by ity of tablet 00:00: mouth (three) Medical times Branch daily. gabapentin 2020-1 Yes [id number] 800mg Take 1 [facility] 800 mg 2-22 tablet by it[facility] of tablet 00:00: mouth 3 (three) Medical times Branch daily. gabapentin 2020-1 Yes [id number] 800mg Take 1 [facility] 800 mg 2-22 tablet by ity of tablet 00:00: mouth 3 (three) Medical times Branch daily. gabapentin 2020-1 Yes [id number] 800mg Take 1 [facility] 800 mg 2-22 tablet by ity of tablet 00:00: mouth 3 (three) Medical times Branch daily. gabapentin 2020-1 Yes [id number] 800mg Take 1 [facility] 800 mg 2-22 tablet by ity of tablet 00:00: mouth 3 (three) Medical times Branch daily. gabapentin 2020-1 Yes [id number] 800mg Take 1 [facility] 800 mg 2-22 tablet by ity of tablet 00:00: mouth 3 (three) Medical times Branch daily. gabapentin 2020-1 Yes [id number] 800mg Take 1 [facility] 800 mg 2-22 tablet by ity of tablet 00:00: mouth (three) Medical times Branch daily. gabapentin 2020-1 Yes [id number] 800mg Take 1 [facility] 800 mg 2-22 tablet by ity of tablet 00:00: mouth (three) Medical times Branch daily. gabapentin 2020-1 Yes [id number] 800mg Take 1 [facility] 800 mg 2-22 tablet by ity of tablet 00:00: mouth (three) Medical times Branch daily. gabapentin 2020-1 Yes [id number] 800mg Take 1 [facility] 800 mg 2-22 tablet by ity of tablet 00:00: mouth (three) Medical times Branch daily. gabapentin 2020-1 Yes [id number] 800mg Take 1 [facility] 800 mg 2-22 tablet by ity of tablet 00:00: mouth (three) Medical times Branch daily. gabapentin 2020-1 Yes [id number] 800mg Take 1 [facility] 800 mg 2-22 tablet by it[facility] of tablet 00:00: mouth (three) Medical times Branch daily. gabapentin 2020-1 Yes [id number] 800mg Take 1 [facility] 800 mg 2-22 [...] Medical times Branch daily. gabapentin 2019-2020- No [id number] 800mg Take 1 [facility] 800 mg 2-22 07-23 tablet by ity of tablet 00:00: 00:00 mouth 3 [place] 00 :00 (three) Medical times Branch daily. methocarbam 2020- Yes [id number] 500mg Take 1 [facility] oL 500 mg 2-11 tablet by ity o f tablet 00:00: mouth 4 (four) Medical times Branch daily as needed (muscle spasm). methocarbam 2019-05 Yes [id number] 500mg Take 1 [facility] oL 500 mg 2-11 tablet by ity o f tablet 00:00: mouth 4 (four) Medical times Branch daily as needed (muscle spasm). methocarbam 2019-05 Yes [id number] 500mg Take 1 [facility] oL 500 mg 2-11 tablet by ity o f tablet 00:00: mouth 4 (four) Medical times Branch daily as needed (muscle spasm). methocarbam 2019-05 Yes [id number] 500mg Take 1 [facility] oL 500 mg 2-11 tablet by ity o f tablet 00:00: mouth (four) Medical times Branch daily as needed (muscle spasm). methocarbam 2019-05 Yes [id number] 500mg Take 1 [facility] oL 500 mg 2-11 tablet by ity o f tablet 00:00: mouth (four) Medical times Branch daily as needed (muscle spasm). methocarbam 2019-05 Yes [id number] 500mg Take 1 [facility] oL 500 mg 2-11 tablet by ity o f tablet 00:00: mouth (four) Medical times Branch daily as needed (muscle spasm). methocarbam 2019-05 Yes [id number] 500mg Take 1 [facility] oL 500 mg 2-11 tablet by ity o f tablet 00:00: mouth (four) Medical times Branch daily as needed (muscle spasm). methocarbam 2019-05- No [id number] 500mg Take 1 [facility] oL 500 mg 2-11 -08 tablet by ity of tablet 00:00: 00:00 mouth 4 [place] 00 :00 (four) Medical times Branch daily as needed (muscle spasm). PANTOPRAZOL 2019-05 Yes [id number] TAKE 1 [facility] E 40 mg EC 1-18 TABLET BY ity of tablet 00:00: MOUTH ONCE 00 DAILY DO Medical NOT CRUSH Branch OR CHEW FUROSEMIDE 2019-05 Yes [id number] Take 1 U nivers 20 mg 1-18 tablet by ity of tablet 00:00: mouth once 00 daily Medical Branch POTASSIUM 2019-05 Yes [id number] Take 1 [facility]i CHLORIDE 10 1-18 tablet by ity of mEq CR 00:00: mouth once [place] tablet 00 daily Medical Branch PANTOPRAZOL 2020- Yes [id number] TAKE 1 [facility] E 40 mg EC 1-18 TABLET BY ity of tablet 00:00: MOUTH ONCE [place] 00 DAILY DO Medical NOT CRUSH Branch OR CHEW FUROSEMIDE 2020- Yes [id number] Take 1 [facility] nivers 20 mg 1-18 tablet by ity of tablet 00:00: mouth once [place] 00 daily Medical Branch POTASSIUM 2020- Yes [id number] Take 1 [facility] [place] CHLORIDE 10 1-18 tablet by ity of mEq CR 00:00: mouth once [place] tablet 00 daily Medical Branch PANTOPRAZOL 2020- Yes [id number] TAKE 1 [facility] E 40 mg EC 1-18 TABLET BY ity of tablet 00:00: MOUTH ONCE [place] 00 DAILY DO Medical NOT CRUSH Branch OR CHEW FUROSEMIDE 2020- Yes [id number] Take 1 U nivers 20 mg 1-18 tablet by ity of tablet 00:00: mouth once [place] 00 daily Medical Branch POTASSIUM 2020- Yes [id number] Take 1 [facility] CHLORIDE 10 1-18 tablet by ity of mEq CR 00:00: mouth once [place] tablet 00 daily Medical Branch PANTOPRAZOL 2020- Yes [id number] TAKE 1 [facility] E 40 mg EC 1-18 TABLET BY ity of tablet 00:00: MOUTH ONCE [place] 00 DAILY DO Medical NOT CRUSH Branch OR CHEW FUROSEMIDE 2020- Yes [id number] Take 1 U nivers 20 mg 1-18 tablet by ity of tablet 00:00: mouth once [place] 00 daily Medical Branch POTASSIUM 2020- Yes [id number] Take 1 Un [facility] CHLORIDE 10 1-18 tablet by ity of mEq CR 00:00: mouth once [place] tablet 00 daily Medical Branch PANTOPRAZOL 2020- Yes [id number] TAKE 1 [facility] E 40 mg EC 1-18 TABLET BY ity of tablet 00:00: MOUTH ONCE [place] 00 DAILY DO Medical NOT CRUSH Branch OR CHEW FUROSEMIDE 2020- Yes [id number] Take 1 [facility] nivers 20 mg 1-18 tablet by ity of tablet 00:00: mouth once [place] 00 daily Medical Branch POTASSIUM 2020- Yes [id number] Take 1 [facility] CHLORIDE 10 1-18 tablet by ity of mEq CR 00:00: mouth once [place] tablet 00 daily Medical Branch PANTOPRAZOL 2020- Yes [id number] TAKE 1 [facility] E 40 mg EC 1-18 TABLET BY ity of tablet 00:00: MOUTH ONCE [place] 00 DAILY DO Medical NOT CRUSH Branch OR CHEW FUROSEMIDE 2020- Yes [id number] Take 1 U nivers 20 mg 1-18 tablet by ity of tablet 00:00: mouth once [place] 00 daily Medical Branch POTASSIUM 2020- Yes [id number] Take 1 [facility]i CHLORIDE 10 1-18 tablet by ity of mEq CR 00:00: mouth once [place] tablet 00 daily Medical Branch PANTOPRAZOL 2020- Yes [id number] TAKE 1 [facility] E 40 mg EC 1-18 TABLET BY ity of tablet 00:00: MOUTH ONCE [place] 00 DAILY DO Medical NOT CRUSH Branch OR CHEW FUROSEMIDE 2020- Yes [id number] Take 1 U nivers 20 mg 1-18 tablet by ity of tablet 00:00: mouth once [place] 00 daily Medical Branch POTASSIUM 2020- Yes [id number] Take 1 [facility] CHLORIDE 10 1-18 tablet by ity of mEq CR 00:00: mouth once [place] tablet 00 daily Medical Branch PANTOPRAZOL 2020- Yes [id number] TAKE 1 [facility] E 40 mg EC 1-18 TABLET BY ity of tablet 00:00: MOUTH ONCE [place] 00 DAILY DO Medical NOT CRUSH Branch OR CHEW FUROSEMIDE 2020- Yes [id number] Take 1 U nivers 20 mg 1-18 tablet by ity of tablet 00:00: mouth once [place] 00 daily Medical Branch POTASSIUM 2020- Yes [id number] Take 1 [facility] CHLORIDE 10 1-18 tablet by ity of mEq CR 00:00: mouth once [place] tablet 00 daily Medical Branch PANTOPRAZOL 2020- Yes [id number] TAKE 1 [facility] E 40 mg EC 1-18 TABLET BY ity of tablet 00:00: MOUTH ONCE [place] 00 DAILY DO Medical NOT CRUSH Branch OR CHEW FUROSEMIDE 2020- Yes [id number] Take 1 U nivers 20 mg 1-18 tablet by ity of tablet 00:00: mouth once [place] 00 daily Medical Branch FUROSEMIDE 2020- Yes [id number] Take 1 U nivers 20 mg 1-18 tablet by ity of tablet 00:00: mouth once [place] 00 daily Medical Branch FUROSEMIDE 2020- Yes [id number] Take 1 U nivers 20 mg 1-18 tablet by ity of tablet 00:00: mouth once [place] 00 daily Medical Branch FUROSEMIDE 2020- Yes [id number] Take 1 [facility] nivers 20 mg 1-18 tablet by ity of tablet 00:00: mouth once [place] daily Medical Branch FUROSEMIDE 2019-05 Yes [id number] Take 1 [facility] nivers 20 mg 1-18 tablet by ity of tablet 00:00: mouth once [place] daily Medical Branch FUROSEMIDE 2019-05 Yes [id number] Take 1 U nivers 20 mg 1-18 tablet by ity of tablet 00:00: mouth once [place] daily Medical Branch FUROSEMIDE 2019-05 Yes [id number] Take 1 [facility] nivers 20 mg 1-18 tablet by ity of tablet 00:00: mouth once [place] daily Medical Branch FUROSEMIDE 2019-05 Yes [id number] Take 1 [facility] nivers 20 mg 1-18 tablet by ity of tablet 00:00: mouth once [place] daily Medical Branch FUROSEMIDE 2019-05 Yes [id number] Take 1 U nivers 20 mg 1-18 tablet by ity of tablet 00:00: mouth once [place] daily Medical Branch FUROSEMIDE 2019-05 Yes [id number] Take 1 U nivers 20 mg 1-18 tablet by ity of tablet 00:00: mouth once [place] daily Medical Branch FUROSEMIDE 2019-05 Yes [id number] Take 1 U nivers 20 mg 1-18 tablet by ity of tablet 00:00: mouth once [place] daily Medical Branch FUROSEMIDE 2019-05 Yes [id number] Take 1 U nivers 20 mg 1-18 tablet by ity of tablet 00:00: mouth once [place] daily Medical Branch FUROSEMIDE 2019-05- No [id number] Take 1 [facility] 20 mg 1-18 -12 tablet by [facility] of tablet 00:00: 00:00 mouth [place] 00 :00 daily [facility] PANTOPRAZOL 2019-05- No [id number] TAKE 1 [facility] E 40 mg EC -18 06-08 TABLET BY ity of tablet 00:00: 00:00 MOUTH ONCE [place] 00 :00 DAILY DO Medical NOT CRUSH Branch OR CHEW POTASSIUM 2019-05- No [id number] Take 1 U nivers CHLORIDE 10 -18 06-05 tablet by it y of mEq CR 00:00: 00:00 mouth once [place] tablet 00 :00 daily Medical Branch gabapentin 2019-05 Yes [id number] 800mg Take 1 [facility] 800 mg 1-16 tablet by ity of tablet 00:00: mouth 3 (three) Medical times Branch daily. gabapentin 2019-05 Yes [id number] 800mg Take 1 [facility] 800 mg 1-16 tablet by ity of tablet 00:00: mouth 3 00 (three) Medical times Branch daily. gabapentin 2020-1 Yes [id number] 800mg Take 1 [facility] 800 mg 1-16 tablet by ity of tablet 00:00: mouth 3 00 (three) Medical times Branch daily. gabapentin 2020-1 Yes [id number] 800mg Take 1 [facility] 800 mg 1-16 tablet by ity of tablet 00:00: mouth 3 00 (three) Medical times Branch daily. gabapentin 2020-1 Yes [id number] 800mg Take 1 [facility] 800 mg 1-16 tablet by ity of tablet 00:00: mouth 3 00 (three) Medical times Branch daily. gabapentin 2020-1 Yes [id number] 800mg Take 1 [facility] 800 mg 1-16 tablet by ity of tablet 00:00: mouth 3 00 (three) Medical times Branch daily. gabapentin 2020- Yes [id number] 800mg Take 1 [facility] 800 mg 1-16 tablet by ity of tablet 00:00: mouth 3 00 (three) Medical times Branch daily. gabapentin 2020-1 Yes [id number] 800mg Take 1 [facility] 800 mg 1-16 tablet by ity of tablet 00:00: mouth 3 00 (three) Medical times Branch daily. gabapentin 2019- 2020- No [id number] 800mg Take 1 [facility] 800 mg 1-16 12-22 tablet by ity of tablet 00:00: 00:00 mouth 3 [place] 00 :00 (three) Medical times Branch daily. Nitrofurant 2019- Yes [id number] 100mg Take 1 [facility] oin&Nit. 1-10 capsule by ity o f Macrocryst 00:00: mouth 2 [place] (MACROBID) 00 (two) Medical 100 mg times Branch capsule daily. Nitrofurant 2019- Yes [id number] 100mg Take 1 [facility] oin&Nit. 1-10 capsule by ity o f Macrocryst 00:00: mouth 2 [place] (MACROBID) 00 (two) Medical 100 mg times Branch capsule daily. Nitrofurant 2019- Yes [id number] 100mg Take 1 [facility] oin&Nit. 1-10 capsule by ity o f Macrocryst 00:00: mouth 2 [place] (MACROBID) 00 (two) Medical 100 mg times Branch capsule daily. Nitrofurant 2019-05 Yes [id number] 100mg Take 1 [facility] oin&Nit. 1-10 capsule by ity o f Macrocryst 00:00: mouth 2 [place] (MACROBID) 00 (two) Medical 100 mg times Branch capsule daily. Nitrofurant 2019-05 Yes [id number] 100mg Take 1 [facility] oin&Nit. 1-10 capsule by ity o f Macrocryst 00:00: mouth 2 [place] (MACROBID) 00 (two) Medical 100 mg times Branch capsule daily. Nitrofurant 2019-05 Yes [id number] 100mg Take 1 [facility] oin&Nit. 1-10 capsule by ity o f Macrocryst 00:00: mouth 2 [place] (MACROBID) 00 (two) Medical 100 mg times Branch capsule daily. Nitrofurant 2019-05 Yes [id number] 100mg Take 1 [facility] oin&Nit. 1-10 capsule by ity o f Macrocryst 00:00: mouth 2 [place] (MACROBID) 00 (two) Medical 100 mg times Branch capsule daily. Nitrofurant 2019-05 Yes [id number] 100mg Take 1 [facility] oin&Nit. 1-10 capsule by ity o f Macrocryst 00:00: mouth 2 [place] (MACROBID) 00 (two) Medical 100 mg times Branch capsule daily. Nitrofurant 2019-05 2020- No [id number] 100mg Take 1 [facility] oin&Nit. 1-10 12-19 capsule by ity of Macrocryst 00:00: 00:00 mouth 2 [place] (MACROBID) 00 :00 (two) Medical 100 mg times Branch capsule daily. Nitrofurant 2019-05 2020- No [id number] 100mg Take 1 [facility] oin&Nit. 1-10 12-19 [...] for tablet 7 days. metroNIDAZO 2019-05 Yes [id number] 500mg Take 1 [facility] LE 500 mg 1-06 tablet by ity o f tablet 00:00: mouth [place] 00 every 12 Medical (twelve) Branch hours. clotrimazol 2019-05 Yes [id number] Apply to [facility] e-betametha 1-06 area(s) 2 [facility] of sone cream 00:00: (two) [place] 00 times Medical daily. Use Branch for 2 weeks on affected area metroNIDAZO 2019-05 Yes [id number] 500mg Take 1 [facility] LE 500 mg 1-06 tablet by ity o f tablet 00:00: mouth [place] 00 every 12 Medical (twelve) Branch hours. clotrimazol 2019- Yes [id number] Apply to [facility] e-betametha 1-06 area(s) 2 it[facility] of sone cream 00:00: (two) [place] 00 times Medical daily. Use Branch for 2 weeks on affected area metroNIDAZO 2019- Yes [id number] 500mg Take 1 [facility] LE 500 mg 1-06 tablet by ity o f tablet 00:00: mouth [place] 00 every 12 Medical (twelve) Branch hours. clotrimazol 2019- Yes [id number] Apply to [facility] e-betametha 1-06 area(s) 2 [facility] of sone cream 00:00: (two) [place] 00 times Medical daily. Use Branch for 2 weeks on affected area metroNIDAZO 2019-05 Yes [id number] 500mg Take 1 [facility] LE 500 mg 1-06 tablet by ity o f tablet 00:00: mouth [place] 00 every 12 Medical (twelve) Branch hours. clotrimazol 2019- Yes [id number] Apply to [facility] e-betametha 1-06 area(s) 2 ity of sone cream 00:00: (two) [place] 00 times Medical daily. Use Branch for 2 weeks on affected area metroNIDAZO 2020- Yes [id number] 500mg Take 1 [facility] LE 500 mg 1-06 tablet by ity o f tablet 00:00: mouth [place] 00 every 12 Medical (twelve) Branch hours. clotrimazol 2020- Yes [id number] Apply to [facility] e-betametha 1-06 area(s) 2 [facility] of sone cream 00:00: (two) [place] 00 times Medical daily. Use Branch for 2 weeks on affected area metroNIDAZO 2019-05 Yes [id number] 500mg Take 1 [facility] LE 500 mg 1-06 tablet by ity o f tablet 00:00: mouth [place] 00 every 12 Medical (twelve) Branch hours. clotrimazol 2019- Yes [id number] Apply to [facility] e-betametha 1-06 area(s) 2 ity of sone cream 00:00: (two) [place] 00 times Medical daily. Use Branch for 2 weeks on affected area metroNIDAZO 2019-05 Yes [id number] 500mg Take 1 [facility] LE 500 mg 1-06 tablet by ity o f tablet 00:00: mouth [place] 00 every 12 Medical (twelve) Branch hours. clotrimazol 2019- Yes [id number] Apply to [facility] e-betametha 1-06 area(s) 2 [facility] of sone cream 00:00: (two) [place] 00 times Medical daily. Use Branch for 2 weeks on affected area metroNIDAZO 2019- Yes [id number] 500mg Take 1 [facility] LE 500 mg 1-06 tablet by ity o f tablet 00:00: mouth [place] 00 every 12 Medical (twelve) Branch hours. clotrimazol 2020- Yes [id number] Apply to [facility] e-betametha 1-06 area(s) 2 [facility] of sone cream 00:00: (two) [place] 00 times Medical daily. Use Branch for 2 weeks on affected area metroNIDAZO 2019-05 Yes [id number] 500mg Take 1 [facility] LE 500 mg 1-06 tablet by ity o f tablet 00:00: mouth [place] 00 every 12 Medical (twelve) Branch hours. clotrimazol 2020- Yes [id number] Apply to [facility] e-betametha 1-06 area(s) 2 [facility] of sone cream 00:00: (two) [place] 00 times Medical daily. Use Branch for 2 weeks on affected area metroNIDAZO 2020- Yes [id number] 500mg Take 1 [facility] LE 500 mg 1-06 tablet by ity o f tablet 00:00: mouth [place] 00 every 12 Medical (twelve) Branch hours. clotrimazol 2020- Yes [id number] Apply to [facility] e-betametha 1-06 area(s) 2 it[facility] of sone cream 00:00: (two) [place] 00 times Medical daily. Use Branch for 2 weeks on affected area metroNIDAZO 2020- Yes [id number] 500mg Take 1 [facility] LE 500 mg 1-06 tablet by ity o f tablet 00:00: mouth [place] 00 every 12 Medical (twelve) Branch hours. clotrimazol 2020- Yes [id number] Apply to [facility] e-betametha 1-06 area(s) 2 ity of sone cream 00:00: (two) [place] 00 times Medical daily. Use Branch for 2 weeks on affected area metroNIDAZO 2020- Yes [id number] 500mg Take 1 [facility] LE 500 mg 1-06 tablet by ity o f tablet 00:00: mouth [place] 00 every 12 Medical (twelve) Branch hours. clotrimazol 2020- Yes [id number] Apply to [facility] e-betametha 1-06 area(s) 2 [facility] of sone cream 00:00: (two) [place] 00 times Medical daily. Use Branch for 2 weeks on affected area clotrimazol 2020- Yes [id number] Apply to [facility] e-betametha 1-06 area(s) 2 it[facility] of sone cream 00:00: (two) [place] 00 times Medical daily. Use Branch for 2 weeks on affected area clotrimazol 2020- Yes [id number] Apply to [facility] e-betametha 1-06 area(s) 2 [facility] of sone cream 00:00: (two) [place] 00 times Medical daily. Use Branch for 2 weeks on affected area clotrimazol 2020- Yes [id number] Apply to [facility] e-betametha 1-06 area(s) 2 it[facility] of sone cream 00:00: (two) [place] 00 times Medical daily. Use Branch for 2 weeks on affected area clotrimazol 2020-1 Yes [id number] Apply to [facility] e-betametha 1-06 area(s) 2 it[facility] of sone cream 00:00: (two) [place] 00 times Medical daily. Use Branch for 2 weeks on affected area clotrimazol 2020-1 Yes [id number] Apply to [facility] e-betametha 1-06 area(s) 2 ity of sone cream 00:00: (two) [place] 00 times Medical daily. Use Branch for 2 weeks on affected area clotrimazol 2020-1 Yes [id number] Apply to [facility] e-betametha 1-06 area(s) 2 it[facility] of sone cream 00:00: (two) [place] 00 times Medical daily. Use Branch for 2 weeks on affected area clotrimazol 2020-1 Yes [id number] Apply to [facility] e-betametha 1-06 area(s) 2 [facility] of sone cream 00:00: (two) [place] 00 times Medical daily. Use Branch for 2 weeks on affected area clotrimazol 2020-1 Yes [id number] Apply to [facility] e-betametha 1-06 area(s) 2 ity of sone cream 00:00: (two) [place] 00 times Medical daily. Use Branch for 2 weeks on affected area clotrimazol 2020-1 Yes [id number] Apply to [facility] e-betametha 1-06 area(s) 2 ity of sone cream 00:00: (two) [place] 00 times Medical daily. Use Branch for 2 weeks on affected area clotrimazol 2020-1 Yes [id number] Apply to [facility] e-betametha 1-06 area(s) 2 it[facility] of sone cream 00:00: (two) [place] 00 times Medical daily. Use Branch for 2 weeks on affected area clotrimazol 2020-1 Yes [id number] Apply to [facility] e-betametha 1-06 area(s) 2 it[facility] of sone cream 00:00: (two) [place] 00 times Medical daily. Use Branch for 2 weeks on affected area clotrimazol 2020-1 Yes [id number] Apply to [facility] e-betametha 1-06 area(s) 2 [facility] of sone cream 00:00: (two) [place] 00 times Medical daily. Use Branch for 2 weeks on affected area clotrimazol 2019-05- No [id number] Apply to [facility] e-betametha 06-03 area(s) 2 it y of sone cream 00:00: 00:00 (two) [place] 00 :00 times Medical daily. Use Branch for 2 weeks on affected area clotrimazol 2019-05- No [id number] Apply to [facility] e-betametha 06-03 area(s) 2 it y of sone cream 00:00: 00:00 (two) [place] 00 :00 times Medical daily. Use Branch for 2 weeks on affected area metroNIDAZO 2019-05- No [id number] 500mg Take 1 [facility] LE 500 mg 06-03 tablet by ity of tablet 00:00: 00:00 mouth [place] 00 :00 every 12 Medical (twelve) Branch hours. metroNIDAZO 2019-05- No [id number] 500mg Take 1 [facility] LE 500 mg 06-03 tablet by ity of tablet 00:00: 00:00 mouth [place] 00 :00 every 12 Medical (twelve) Branch hours. fluconazole 2019-05- No [id number] 150mg Take 1 [facility] 150 mg 06-03 tablet by ity of tablet 00:00: 05:59 mouth [place] 00 :00 every 72 Medical [facility] hours for 2 doses. Take one tab now and a second dose in 72 hours fluconazole 2019-05- No [id number] 150mg Take 1 [facility] 150 mg 06-03 tablet by ity of tablet 00:00: 05:59 mouth [place] 00 :00 every 72 Medical [facility] hours for 2 doses. Take one tab now and a second dose in 72 hours fluconazole 2019-05- No [id number] 150mg Take 1 [facility] 150 mg 06-03 tablet by ity of tablet 00:00: 05:59 mouth [place] 00 :00 every 72 Medical [facility] hours for 2 doses. Take one tab now and a second dose in 72 hours fluconazole 2019-05- No [id number] 150mg Take 1 [facility] 150 mg 06-03 tablet by ity of tablet 00:00: 05:59 mouth [place] 00 :00 every 72 Medical [facility]) hours for 2 doses. Take one tab now and a second dose in 72 hours PANTOPRAZOL 2020-1 Yes [id number] TAKE 1 [facility] E 40 mg EC 0-23 TABLET BY ity of tablet 00:00: MOUTH ONCE [place] 00 DAILY DO Medical NOT CRUSH Branch OR CHEW POTASSIUM 2020-1 Yes [id number] Take 1 [facility] CHLORIDE 10 0-23 tablet by ity of mEq CR 00:00: mouth once [place] tablet 00 daily Medical Branch PANTOPRAZOL 2020- Yes [id number] TAKE 1 [facility] E 40 mg EC 0-23 TABLET BY ity of tablet 00:00: MOUTH ONCE [place] 00 DAILY DO Medical NOT CRUSH Branch OR CHEW POTASSIUM 2020-1 Yes [id number] Take 1 [facility] CHLORIDE 10 0-23 tablet by ity of mEq CR 00:00: mouth once [place] tablet 00 daily Medical Branch PANTOPRAZOL 2020- Yes [id number] TAKE 1 [facility] E 40 mg EC 0-23 TABLET BY ity of tablet 00:00: MOUTH ONCE [place] 00 DAILY DO Medical NOT CRUSH Branch OR CHEW POTASSIUM 2020-1 Yes [id number] Take 1 [facility] CHLORIDE 10 0-23 tablet by ity of mEq CR 00:00: mouth once [place] tablet 00 daily Medical Branch PANTOPRAZOL 2020- Yes [id number] TAKE 1 [facility] E 40 mg EC 0-23 TABLET BY ity of tablet 00:00: MOUTH ONCE [place] 00 DAILY DO Medical NOT CRUSH Branch OR CHEW POTASSIUM 2020-1 Yes [id number] Take 1 [facility] CHLORIDE 10 0-23 tablet by ity of mEq CR 00:00: mouth once [place] tablet 00 daily Medical Branch PANTOPRAZOL 2020- Yes [id number] TAKE 1 [facility] E 40 mg EC 0-23 TABLET BY ity of tablet 00:00: MOUTH ONCE [place] 00 DAILY DO Medical NOT CRUSH Branch OR CHEW POTASSIUM 2020-1 Yes [id number] Take 1 [facility] CHLORIDE 10 0-23 tablet by ity of mEq CR 00:00: mouth once [place] tablet 00 daily Medical Branch PANTOPRAZOL 2020-1 Yes [id number] TAKE 1 [facility] E 40 mg EC 0-23 TABLET BY ity of tablet 00:00: MOUTH ONCE [place] 00 DAILY DO Medical NOT CRUSH Branch OR CHEW POTASSIUM 2020-1 Yes [id number] Take 1 [facility] CHLORIDE 10 0-23 tablet by ity of mEq CR 00:00: mouth once [place] tablet 00 daily Medical Branch PANTOPRAZOL 2020-1 Yes [id number] TAKE 1 [facility] E 40 mg EC 0-23 TABLET BY ity of tablet 00:00: MOUTH ONCE 00 DAILY DO Medical NOT CRUSH Branch OR CHEW POTASSIUM 2020- Yes [id number] Take 1 [facility] CHLORIDE 10 0-23 tablet by ity of mEq CR 00:00: mouth once [place] tablet 00 daily Medical Branch PANTOPRAZOL 2019- Yes [id number] TAKE 1 [facility] E 40 mg EC 0-23 TABLET BY ity of tablet 00:00: MOUTH ONCE [place] 00 DAILY DO Medical NOT CRUSH Branch OR CHEW POTASSIUM 2020-1 Yes [id number] Take 1 [facility] CHLORIDE 10 0-23 tablet by ity of mEq CR 00:00: mouth once [place] tablet 00 daily Medical Branch PANTOPRAZOL 2019-05 2020- No [id number] TAKE 1 [facility] E 40 mg EC 0-23 11-18 TABLET BY ity of tablet 00:00: 00:00 MOUTH [place]CE [place] 00 :00 DAILY DO Medical NOT CRUSH Branch OR CHEW POTASSIUM 2019- 2020- No [id number] Take 1 [facility] n[facility] CHLORIDE 10 0-23 11-18 tablet by it y of mEq CR 00:00: 00:00 mouth [place] tablet 00 :00 daily Medical Branch gabapentin 2019- Yes [id number] 800mg Take 1 [facility] 800 mg 0-14 tablet by ity of tablet 00:00: mouth () Medical times Branch daily. gabapentin 2020- Yes [id number] 800mg Take 1 [facility] 800 mg 0-14 tablet by ity of tablet 00:00: mouth (three) Medical times Branch daily. gabapentin 2020- Yes [id number] 800mg Take 1 [facility] 800 mg 0-14 tablet by ity of tablet 00:00: mouth 3 (three) Medical times Branch daily. gabapentin 2020-1 Yes [id number] 800mg Take 1 [facility] 800 mg 0-14 tablet by ity of tablet 00:00: mouth 3 (three) Medical times Branch daily. gabapentin 2020-1 Yes [id number] 800mg Take 1 [facility] 800 mg 0-14 tablet by ity of tablet 00:00: mouth 3 (three) Medical times Branch daily. gabapentin 2020- Yes [id number] 800mg Take 1 [facility] 800 mg 0-14 tablet by ity of tablet 00:00: mouth 3 (three) Medical times Branch daily. gabapentin 2020-1 Yes [id number] 800mg Take 1 [facility] 800 mg 0-14 tablet by ity of tablet 00:00: mouth 3 [place] 00 (three) Medical times Branch daily. gabapentin 2020-1 Yes [id number] 800mg Take 1 [facility] 800 mg 0-14 tablet by ity of tablet 00:00: mouth 3 [place] 00 (three) Medical times Branch daily. gabapentin 2020-1 2020- No [id number] 800mg Take 1 [facility] 800 mg 0-14 11-16 tablet by ity of tablet 00:00: 00:00 mouth 3 [place] 00 :00 (three) Medical times Branch daily. FUROSEMIDE 2020-0 Yes [id number] Take 1 [facility] nivers 20 mg 8-18 tablet by ity of tablet 00:00: mouth once [place] daily Medical Branch FUROSEMIDE 2020-0 Yes [id number] Take 1 [facility] nivers 20 mg 8-18 tablet by ity of tablet 00:00: mouth once [place] daily Medical Branch FUROSEMIDE 2020-0 Yes [id number] Take 1 [facility] nivers 20 mg 8-18 tablet by ity of tablet 00:00: mouth once [place] daily Medical Branch FUROSEMIDE 2020-0 Yes [id number] Take 1 [facility] nivers 20 mg 8-18 tablet by ity of tablet 00:00: mouth once [place] daily Medical Branch FUROSEMIDE 2020-0 Yes [id number] Take 1 [facility] nivers 20 mg 8-18 tablet by ity of tablet 00:00: mouth once [place] daily Medical Branch FUROSEMIDE 2020-0 Yes [id number] Take 1 U nivers 20 mg 8-18 tablet by ity of tablet 00:00: mouth once [place] daily Medical Branch FUROSEMIDE 2020-0 Yes [id number] Take 1 [facility] nivers 20 mg 8-18 tablet by ity of tablet 00:00: mouth once [place] daily Medical Branch FUROSEMIDE 2020-0 Yes [id number] Take 1 [facility] nivers 20 mg 8-18 tablet by ity of tablet 00:00: mouth once [place] daily Medical Branch FUROSEMIDE 2020-0 Yes [id number] Take 1 [facility] nivers 20 mg 8-18 tablet by ity of tablet 00:00: mouth once [place] daily Medical Branch FUROSEMIDE 2020-0 Yes [id number] Take 1 [facility] nivers 20 mg 8-18 tablet by ity of tablet 00:00: mouth once [place] daily Medical Branch FUROSEMIDE 2020-0 Yes [id number] Take 1 [facility] nivers 20 mg 8-18 tablet by ity of tablet 00:00: mouth once 00 daily Medical Branch FUROSEMIDE 2020-0 Yes [id number] Take 1 [facility] nivers 20 mg 8-18 tablet by ity of tablet 00:00: mouth once 00 daily Medical Branch FUROSEMIDE 2020-0 2020- No [id number] Take 1 [facility] 20 mg 8-18 11-18 tablet by ity of tablet 00:00: 00:00 mouth [place] 00 :00 daily Medical Branch fluconazole 2020-0 2020- No [id number] 150mg Take 1 [facility] 150 mg 8-14 08-15 tablet by ity of tablet 00:00: 04:59 mouth [place] 00 :00 now for 1 Medical dose. Branch fluconazole 2020-0 2020- No [id number] 150mg Take 1 [facility] 150 mg 8-14 08-15 tablet by ity of tablet 00:00: 04:59 mouth once [place] 00 :00 now for 1 Medical dose. Branch gabapentin 2020-0 Yes [id number] 800mg Take 1 [facility] 800 mg 7-15 tablet by ity of tablet 00:00: mouth 3 ([facility]) Medical times Branch daily. gabapentin 2020-0 Yes [id number] 800mg Take 1 [facility] 800 mg 7-15 tablet by ity of tablet 00:00: mouth ([facility]) Medical times Branch daily. gabapentin 2020-0 Yes [id number] 800mg Take 1 [facility] 800 mg 7-15 tablet by ity of tablet 00:00: mouth (three) Medical times Branch daily. gabapentin 2020-0 Yes [id number] 800mg Take 1 [facility] 800 mg 7-15 tablet by ity of tablet 00:00: mouth (three) Medical times Branch daily. gabapentin 2020-0 Yes [id number] 800mg Take 1 [facility] 800 mg 7-15 tablet by ity of tablet 00:00: mouth (three) Medical times Branch daily. gabapentin 2020-0 Yes [id number] 800mg Take 1 [facility] 800 mg 7-15 tablet by ity of tablet 00:00: mouth 3 (three) Medical times Branch daily. gabapentin 2020-0 Yes [id number] 800mg Take 1 [facility] 800 mg 7-15 tablet by ity of tablet 00:00: mouth (three) Medical times Branch daily. gabapentin 2020-0 2020- No [id number] 800mg Take 1 [facility] 800 mg 7-15 10-14 tablet by ity of tablet 00:00: 00:00 mouth 3 [place] 00 :00 (three) Medical times Branch daily. metFORMIN 2020-0 Yes 1000mg Take 2 [facility] ers 500 mg 7-09 tablets by ity of tablet 00:00: mouth 2 [place] 00 (two) Medical times Branch daily with meals. pantoprazol 2020-0 Yes [id number] 40mg Take 1 [facility] e 40 mg EC 7-09 tablet by ity of tablet 00:00: mouth [place] 00 daily. Do Medical not Crush Branch or Chew DULOXETINE 2020-0 Yes [id number] Take 1 [facility] 30 mg 7-09 capsule by ity of capsule 00:00: mouth [place] 00 daily Medical Branch metFORMIN 2020-0 Yes 1000mg Take 2 [facility] ers 500 mg 7-09 tablets by ity of tablet 00:00: mouth 2 [place] 00 (two) Medical times Branch daily with meals. POTASSIUM 2020-0 Yes [id number] Take 1 [facility] CHLORIDE 10 7-09 tablet by ity of mEq CR 00:00: mouth once [place] tablet 00 daily Medical Branch pantoprazol 2020-0 Yes [id number] 40mg Take 1 [facility] e 40 mg EC 7-09 tablet by ity of tablet 00:00: mouth [place] 00 daily. Do Medical not Crush Branch or Chew DULOXETINE 2020-0 Yes [id number] Take 1 [facility] 30 mg 7-09 capsule by ity of capsule 00:00: mouth once [place] 00 daily Medical Branch metFORMIN 2020-0 Yes 1000mg Take 2 [facility] ers 500 mg 7-09 tablets by ity of tablet 00:00: mouth 2 (two) Medical times Branch daily with meals. POTASSIUM 2020-0 Yes [id number] Take 1 [facility] CHLORIDE 10 7-09 tablet by ity of mEq CR 00:00: mouth once [place] tablet 00 daily Medical Branch pantoprazol 2020-0 Yes [id number] 40mg Take 1 [facility] e 40 mg EC 7-09 tablet by ity of tablet 00:00: mouth [place] 00 daily. Do Medical not Crush Branch or Chew DULOXETINE 2020-0 Yes [id number] Take 1 [facility] 30 mg 7-09 capsule by ity of capsule 00:00: mouth once [place] 00 daily Medical Branch metFORMIN 2020-0 Yes 1000mg Take 2 [facility] ers 500 mg 7-09 tablets by ity of tablet 00:00: mouth 2 (two) Medical times Branch daily with meals. POTASSIUM 2020-0 Yes [id number] Take 1 [facility] CHLORIDE 10 7-09 tablet by ity of mEq CR 00:00: mouth once [place] tablet 00 daily Medical Branch pantoprazol 2020-0 Yes [id number] 40mg Take 1 [facility] e 40 mg EC 7-09 tablet by ity of tablet 00:00: mouth [place] 00 daily. Do Medical not Crush Branch or Chew DULOXETINE 2020-0 Yes [id number] Take 1 [facility] 30 mg 7-09 capsule by ity of capsule 00:00: mouth once [place] 00 daily Medical Branch metFORMIN 2020-0 Yes 1000mg Take 2 [facility] ers 500 mg 7-09 tablets by ity of tablet 00:00: mouth 2 (two) Medical times Branch daily with meals. POTASSIUM 2020-0 Yes [id number] Take 1 [facility] CHLORIDE 10 7-09 tablet by ity of mEq CR 00:00: mouth once [place] tablet 00 daily Medical Branch pantoprazol 2020-0 Yes [id number] 40mg Take 1 [facility] e 40 mg EC 7-09 tablet by ity of tablet 00:00: mouth 00 daily. Do Medical not Crush Branch or Chew DULOXETINE 2020-0 Yes [id number] Take 1 [facility] 30 mg 7-09 capsule by ity of capsule 00:00: mouth once [place] 00 daily Medical Branch metFORMIN 2020-0 Yes 1000mg Take 2 [facility] ers 500 mg 7-09 tablets by ity of tablet 00:00: mouth (two) Medical times Branch daily with meals. POTASSIUM 2020-0 Yes [id number] Take 1 [facility] CHLORIDE 10 7-09 tablet by ity of mEq CR 00:00: mouth once [place] tablet 00 daily Medical Branch pantoprazol 2020-0 Yes [id number] 40mg Take 1 [facility] e 40 mg EC 7-09 tablet by ity of tablet 00:00: mouth [place] 00 daily. Do Medical not Crush Branch or Chew DULOXETINE 2020-0 Yes [id number] Take 1 [facility] 30 mg 7-09 capsule by ity of capsule 00:00: mouth once [place] 00 daily Medical Branch metFORMIN 2020-0 Yes 1000mg Take 2 [facility] ers 500 mg 7-09 tablets by ity of tablet 00:00: mouth 2 (two) Medical times Branch daily with meals. POTASSIUM 2020-0 Yes [id number] Take 1 [facility] CHLORIDE 10 7-09 tablet by ity of mEq CR 00:00: mouth once [place] tablet 00 daily Medical Branch pantoprazol 2020-0 Yes [id number] 40mg Take 1 [facility] e 40 mg EC 7-09 tablet by ity of tablet 00:00: mouth [place] 00 daily. Do Medical not Crush Branch or Chew DULOXETINE 2020-0 Yes [id number] Take 1 [facility] 30 mg 7-09 capsule by ity of capsule 00:00: mouth once [place] 00 daily Medical Branch metFORMIN 2020-0 Yes 1000mg Take 2 [facility] ers 500 mg 7-09 tablets by ity of tablet 00:00: mouth 2 (two) Medical times Branch daily with meals. POTASSIUM 2020-0 Yes [id number] Take 1 [facility] CHLORIDE 10 7-09 tablet by ity of mEq CR 00:00: mouth once [place] tablet 00 daily Medical Branch pantoprazol 2020-0 Yes [id number] 40mg Take 1 [facility] e 40 mg EC 7-09 tablet by ity of tablet 00:00: mouth 00 daily. Do Medical not Crush Branch or Chew DULOXETINE 2020-0 Yes [id number] Take 1 [facility] 30 mg 7-09 capsule by ity of capsule 00:00: mouth once [place] 00 daily Medical Branch metFORMIN 2020-0 Yes 1000mg Take 2 [facility] ers 500 mg 7-09 tablets by ity of tablet 00:00: mouth 2 (two) Medical times Branch daily with meals. POTASSIUM 2020-0 Yes [id number] Take 1 [facility] CHLORIDE 10 7-09 tablet by ity of mEq CR 00:00: mouth once [place] tablet 00 daily Medical Branch pantoprazol 2020-0 Yes [id number] 40mg Take 1 [facility] e 40 mg EC 7-09 tablet by ity of tablet 00:00: mouth 00 daily. Do Medical not Crush Branch or Chew DULOXETINE 2020-0 Yes [id number] Take 1 [facility] 30 mg 7-09 capsule by ity of capsule 00:00: mouth once [place] 00 daily Medical Branch metFORMIN 2020-0 Yes 1000mg Take 2 [facility] ers 500 mg 7-09 tablets by ity of tablet 00:00: mouth 2 (two) Medical times Branch daily with meals. POTASSIUM 2020-0 Yes [id number] Take 1 [facility] CHLORIDE 10 7-09 tablet by ity of mEq CR 00:00: mouth once [place] tablet 00 daily Medical Branch DULOXETINE 2020-0 Yes [id number] Take 1 [facility] 30 mg 7-09 capsule by ity of capsule 00:00: mouth once [place] 00 daily Medical Branch metFORMIN 2020-0 Yes 1000mg Take 2 [facility] ers 500 mg 7-09 tablets by ity of tablet 00:00: mouth 2 [place] (two) Medical times Branch daily with meals. DULOXETINE 2020-0 Yes [id number] Take 1 [facility] 30 mg 7-09 capsule by ity of capsule 00:00: mouth once [place] 00 daily Medical Branch metFORMIN 2020-0 Yes 1000mg Take 2 [facility] ers 500 mg 7-09 tablets by ity of tablet 00:00: mouth 2 [place] (two) Medical times Branch daily with meals. DULOXETINE 2020-0 Yes [id number] Take 1 [facility] 30 mg 7-09 capsule by ity of capsule 00:00: mouth once [place] 00 daily Medical Branch metFORMIN 2020-0 Yes 1000mg Take 2 [facility] ers 500 mg 7-09 tablets by ity of tablet 00:00: mouth 2 [place] (two) Medical times Branch daily with meals. DULOXETINE 2020-0 Yes [id number] Take 1 [facility] 30 mg 7-09 capsule by ity of capsule 00:00: mouth once [place] 00 daily Medical Branch metFORMIN 2020-0 Yes 1000mg Take 2 [facility] ers 500 mg 7-09 tablets by ity of tablet 00:00: mouth 2 [place] (two) Medical times Branch daily with meals. DULOXETINE 2020-0 Yes [id number] Take 1 [facility] 30 mg 7-09 capsule by ity of capsule 00:00: mouth once [place] 00 daily Medical Branch metFORMIN 2020-0 Yes 1000mg Take 2 [facility] ers 500 mg 7-09 tablets by ity of tablet 00:00: mouth 2 [place] (two) Medical times Branch daily with meals. DULOXETINE 2020-0 Yes [id number] Take 1 [facility] 30 mg 7-09 capsule by ity of capsule 00:00: mouth once [place] 00 daily Medical Branch metFORMIN 2020-0 Yes 1000mg Take 2 [facility] ers 500 mg 7-09 tablets by ity of tablet 00:00: mouth 2 [place] (two) Medical times Branch daily with meals. DULOXETINE 2020-0 Yes [id number] Take 1 [facility] 30 mg 7-09 capsule by ity of capsule 00:00: mouth once [place] 00 daily Medical Branch metFORMIN 2020-0 Yes 1000mg Take 2 [facility] ers 500 mg 7-09 tablets by ity of tablet 00:00: mouth [place] (two) Medical times Branch daily with meals. DULOXETINE 2020-0 Yes [id number] Take 1 [facility] 30 mg 7-09 capsule by ity of capsule 00:00: mouth once [place] 00 daily Medical Branch metFORMIN 2020-0 Yes 1000mg Take 2 [facility] ers 500 mg 7-09 tablets by ity of tablet 00:00: mouth 2 [place] (two) Medical times Branch daily with meals. DULOXETINE 2020-0 Yes [id number] Take 1 [facility] 30 mg 7-09 capsule by ity of capsule 00:00: mouth once [place] 00 daily Medical Branch metFORMIN 2020-0 Yes 1000mg Take 2 [facility] ers 500 mg 7-09 tablets by ity of tablet 00:00: mouth [place] (two) Medical times Branch daily with meals. DULOXETINE 2020-0 Yes [id number] Take 1 [facility] 30 mg 7-09 capsule by ity of capsule 00:00: mouth once [place] daily Medical Branch metFORMIN 2020-0 Yes 1000mg Take 2 [facility] ers 500 mg 7-09 tablets by ity of tablet 00:00: mouth [place] ([facility]) Medical times Branch daily with meals. DULOXETINE 2020-0 Yes [id number] Take 1 [facility] 30 mg 7-09 capsule by ity of capsule 00:00: mouth once [place] 00 daily Medical Branch metFORMIN 2020-0 Yes 1000mg Take 2 [facility] ers 500 mg 7-09 tablets by ity of tablet 00:00: mouth [place] (two) Medical times Branch daily with meals. DULOXETINE 2020-0 Yes [id number] Take 1 [facility] 30 mg 7-09 capsule by ity of capsule 00:00: mouth once [place] 00 daily Medical Branch metFORMIN 2020-0 Yes 1000mg Take 2 [facility] ers 500 mg 7-09 tablets by ity of tablet 00:00: mouth [place] (two) Medical times Branch daily with meals. DULOXETINE 2020-0 Yes [id number] Take 1 [facility] 30 mg 7-09 capsule by ity of capsule 00:00: mouth once [place] 00 daily Medical Branch metFORMIN 2020-0 Yes 1000mg Take 2 [facility] ers 500 mg 7-09 tablets by ity of tablet 00:00: mouth (two) Medical times Branch daily with meals. DULOXETINE 2020-0 Yes [id number] Take 1 [facility] 30 mg 7-09 capsule [...] daily with meals. DULOXETINE 2019-0 2020- No [id number] Take 1 [facility] 30 mg 12-04 capsule by ity of capsule 00:00: 00:00 mouth once [place] 00 :00 daily Medical Branch DULOXETINE 2019-0 2020- No [id number] Take 1 [facility] 30 mg 12-04 capsule by ity of capsule 00:00: 00:00 mouth once [place] 00 :00 daily Medical Branch pantoprazol 2019-0 2020- No [id number] 40mg Take 1 [facility] e 40 mg EC 12-04 tablet by ity of tablet 00:00: 00:00 mouth [place] 00 :00 daily. Do Medical not Crush Branch or Chew POTASSIUM 2020-0 2020- No [id number] Take 1 U nivers CHLORIDE 10 12-04 tablet by it y of mEq CR 00:00: 00:00 mouth [place] tablet 00 :00 daily Medical Branch PANTOPRAZOL 2020-0 Yes [id number] Take 1 [facility] E 40 mg EC 6-08 tablet by ity of tablet 00:00: mouth once [place] 00 daily Medical Branch POTASSIUM 2020-0 Yes [id number] Take 1 [facility] [place] CHLORIDE 10 6-08 tablet by ity of mEq CR 00:00: mouth once [place] tablet 00 daily Medical Branch PANTOPRAZOL 2020-0 Yes [id number] Take 1 [facility] E 40 mg EC 6-08 tablet by ity of tablet 00:00: mouth once [place] 00 daily Medical Branch POTASSIUM 2020-0 Yes [id number] Take 1 [facility] [place] CHLORIDE 10 6-08 [...] 5-15 tablet by ity of tablet 20:19: [facility] 33 daily. Medical Branch GABAPENTIN 2020-0 Yes [id number] TAKE 1 [facility] 800 mg 5-05 TABLET BY ity of tablet 00:00: [facility] 00 THREE Medical TIMES Branch DAILY GABAPENTIN 2020-0 Yes [id number] TAKE 1 [facility] 800 mg 5-05 TABLET BY ity of tablet 00:00: [facility] 00 THREE Medical TIMES Branch DAILY GABAPENTIN 2020-0 Yes [id number] TAKE 1 [facility] 800 mg 5-05 TABLET BY ity of tablet 00:00: [facility] 00 THREE Medical TIMES Branch DAILY GABAPENTIN 2020-0 Yes [id number] TAKE 1 [facility] 800 mg 5-05 TABLET BY ity of tablet 00:00: [facility] 00 THREE Medical TIMES Branch DAILY GABAPENTIN 2020-0 Yes [id number] TAKE 1 [facility] 800 mg 5-05 TABLET BY ity of tablet 00:00: [facility] 00 THREE Medical TIMES Branch DAILY GABAPENTIN 2020-0 Yes [id number] TAKE 1 [facility] 800 mg 5-05 TABLET BY ity of tablet 00:00: [facility] 00 THREE Medical TIMES Branch DAILY GABAPENTIN 2020-0 Yes [id number] TAKE 1 [facility] 800 mg 5-05 TABLET BY ity of tablet 00:00: [facility] 00 THREE Medical TIMES Branch DAILY GABAPENTIN 2020-0 Yes [id number] TAKE 1 [facility] 800 mg 5-05 TABLET BY ity of tablet 00:00: [facility] 00 THREE Medical TIMES Branch DAILY GABAPENTIN 2020-0 Yes [id number] TAKE 1 [facility] 800 mg 5-05 TABLET BY ity of tablet 00:00: [facility] [address] [facility] Medical TIMES Branch DAILY GABAPENTIN 2020-0 Yes [id number] TAKE 1 [facility] 800 mg 5-05 TABLET BY ity of tablet 00:00: [facility] [address] [facility] Medical TIMES Branch DAILY GABAPENTIN 2020-0 2020- No [id number] TAKE 1 [facility] 800 mg 5-05 07-15 TABLET BY ity of tablet 00:00: 00:00 [facility] 00 :[address] [facility] Medical TIMES Branch DAILY metoprolol 2020-0 Yes 100mg 100 mg, Uni vers succinate 3-21 Oral, ity of XL (TOPROL 14:00: DAILY, [place] XL) tablet 00 First dose Med ical 100 mg on Sat Branch 08/17/19 at 0900, Until Discontinu ed, Routine atorvastati 2020-0 Yes 80mg 80 mg, Univ ers n (LIPITOR) 3-21 Oral, QHS, it y of tablet 80 02:00: First dose [place] mg 00 on Fri Medical 08/16/19 at [place] 2100, Until Discontinu ed, Routine metoprolol 2020-0 Yes 50mg 50 mg, Unive rs tartrate 3-21 Oral, BID, ity o f (LOPRESSOR) 01:00: First dose [place] tablet 50 00 on Fri Medical mg 08/16/19 at [place] 2000, Until Discontinu ed, Routine metoprolol 2020-0 Yes [id number] 100mg Take 1 [facility] succinate 3-21 07 tablet by ity o f XL 100 mg 00:00: mouth [place] 24 hr 00 daily. Medical tablet [place] azithromyci 2020-0 Yes [id number] 250mg Take 1 [facility] n 250 mg 3-21 07 tablet by ity of tablet 00:00: mouth [place] 00 daily. Medical Take 250 Branch mg tablet once daily metoprolol 2020-0 Yes [id number] 100mg Take 1 [facility] succinate 3-21 07 tablet by ity o f XL 100 mg 00:00: mouth [place] 24 hr 00 daily. Medical tablet [place] azithromyci 2020-0 Yes [id number] 250mg Take 1 [facility] n 250 mg 3-21 07 tablet by ity of tablet 00:00: mouth [place] 00 daily. Medical Take 250 Branch mg tablet once daily metoprolol 2020-0 Yes [id number] 100mg Take 1 [facility] succinate 3-21 07 tablet by ity o f XL 100 mg 00:00: mouth [place] 24 hr 00 daily. Medical tablet [place] azithromyci 2020-0 Yes [id number] 250mg Take 1 [facility] n 250 mg 3-21 07 tablet by ity of tablet 00:00: mouth [place] 00 daily. Medical Take 250 Branch mg tablet once daily metoprolol 2020-0 Yes [id number] 100mg Take 1 [facility] succinate 3-21 07 tablet by ity o f XL 100 mg 00:00: mouth [place] 24 hr 00 daily. Medical tablet [place] azithromyci 2020-0 Yes [id number] 250mg Take 1 [facility] n 250 mg 3-21 07 tablet by ity of tablet 00:00: mouth [place] 00 daily. Medical Take 250 Branch mg tablet once daily metoprolol 2020-0 Yes [id number] 100mg Take 1 [facility] succinate 3-21 07 tablet by ity o f XL 100 mg 00:00: mouth [place] 24 hr 00 daily. Medical tablet Branch azithromyci 2020-0 Yes [id number] 250mg Take 1 [facility] n 250 mg 3-21 07 tablet by ity of tablet 00:00: mouth [place] 00 daily. Medical Take 250 Branch mg tablet once daily metoprolol 2020-0 Yes [id number] 100mg Take 1 [facility] succinate 3-21 07 tablet by ity o f XL 100 mg 00:00: mouth [place] 24 hr 00 daily. Medical tablet Branch azithromyci 2020-0 Yes [id number] 250mg Take 1 [facility] n 250 mg 3-21 07 tablet by ity of tablet 00:00: mouth [place] 00 daily. Medical Take 250 Branch mg tablet once daily metoprolol 2020-0 Yes [id number] 100mg Take 1 [facility] succinate 3-21 07 tablet by ity o f XL 100 mg 00:00: mouth [place] 24 hr 00 daily. Medical tablet Branch azithromyci 2020-0 Yes [id number] 250mg Take 1 [facility] n 250 mg 3-21 07 tablet by ity of tablet 00:00: mouth [place] 00 daily. Medical Take 250 Branch mg tablet once daily metoprolol 2020-0 Yes [id number] 100mg Take 1 [facility] succinate 3-21 07 tablet by ity o f XL 100 mg 00:00: mouth [place] 24 hr 00 daily. Medical tablet Branch azithromyci 2020-0 Yes [id number] 250mg Take 1 [facility] n 250 mg 3-21 07 tablet by ity of tablet 00:00: mouth [place] 00 daily. Medical Take 250 Branch mg tablet once daily metoprolol 2020-0 Yes [id number] 100mg Take 1 [facility] succinate 3-21 07 tablet by ity o f XL 100 mg 00:00: mouth [place] 24 hr 00 daily. Medical tablet Branch azithromyci 2020-0 Yes [id number] 250mg Take 1 [facility] n 250 mg 3-21 07 tablet by ity of tablet 00:00: mouth [place] 00 daily. Medical Take 250 Branch mg tablet once daily metoprolol 2020-0 Yes [id number] 100mg Take 1 [facility] succinate 3-21 07 tablet by ity o f XL 100 mg 00:00: mouth [place] 24 hr 00 daily. Medical tablet Branch azithromyci 2020-0 Yes [id number] 250mg Take 1 [facility] n 250 mg 3-21 07 tablet by ity of tablet 00:00: mouth [place] 00 daily. Medical Take 250 Branch mg tablet once daily metoprolol 2020-0 Yes [id number] 100mg Take 1 [facility] succinate 3-21 07 tablet by ity o f XL 100 mg 00:00: mouth [place] 24 hr 00 daily. Medical tablet Branch azithromyci 2020-0 Yes [id number] 250mg Take 1 [facility] n 250 mg 3-21 07 tablet by ity of tablet 00:00: mouth [place] 00 daily. Medical Take 250 Branch mg tablet once daily metoprolol 2020-0 Yes [id number] 100mg Take 1 [facility] succinate 3-21 07 tablet by ity o f XL 100 mg 00:00: mouth [place] 24 hr 00 daily. Medical tablet Branch azithromyci 2020-0 Yes [id number] 250mg Take 1 [facility] n 250 mg 3-21 07 tablet by ity of tablet 00:00: mouth [place] 00 daily. Medical Take 250 Branch mg tablet once daily metoprolol 2020-0 Yes [id number] 100mg Take 1 [facility] succinate 3-21 07 tablet by ity o f XL 100 mg 00:00: mouth [place] 24 hr 00 daily. Medical tablet Branch azithromyci 2020-0 Yes [id number] 250mg Take 1 [facility] n 250 mg 3-21 07 tablet by ity of tablet 00:00: mouth [place] 00 daily. Medical Take 250 Branch mg tablet once daily metoprolol 2020-0 Yes [id number] 100mg Take 1 [facility] succinate 3-21 07 tablet by ity o f XL 100 mg 00:00: mouth [place] 24 hr 00 daily. Medical tablet Branch azithromyci 2020-0 Yes [id number] 250mg Take 1 [facility] n 250 mg 3-21 07 tablet by ity of tablet 00:00: mouth [place] 00 daily. Medical Take 250 Branch mg tablet once daily metoprolol 2020-0 Yes [id number] 100mg Take 1 [facility] succinate 3-21 tablet by ity o f XL 100 mg 00:00: mouth [place] 24 hr 00 daily. Medical tablet Branch azithromyci 2020-0 Yes [id number] 250mg Take 1 [facility] n 250 mg 3-21 tablet by ity of tablet 00:00: mouth [place] 00 daily. Medical Take 250 Branch mg tablet once daily metoprolol 2020-0 Yes [id number] 100mg Take 1 [facility] succinate 3-21 tablet by ity o f XL 100 mg 00:00: mouth [place] 24 hr 00 daily. Medical tablet Branch azithromyci 2020-0 Yes [id number] 250mg Take 1 [facility] n 250 mg 3-21 tablet by ity of tablet 00:00: mouth [place] 00 daily. Medical Take 250 Branch mg tablet once daily metoprolol 2020-0 Yes [id number] 100mg Take 1 [facility] succinate 3-21 tablet by ity o f XL 100 mg 00:00: mouth [place] 24 hr 00 daily. Medical tablet Branch azithromyci 2020-0 Yes [id number] 250mg Take 1 [facility] n 250 mg 3-21 tablet by ity of tablet 00:00: mouth [place] 00 daily. Medical Take 250 Branch mg tablet once daily metoprolol 2020-0 Yes [id number] 100mg Take 1 [facility] succinate 3-21 tablet by ity o f XL 100 mg 00:00: mouth [place] 24 hr 00 daily. Medical tablet Branch metoprolol 2020-0 Yes [id number] 100mg Take 1 [facility] succinate 3-21 tablet by ity o f XL 100 mg 00:00: mouth [place] 24 hr 00 daily. Medical tablet Branch metoprolol 2020-0 Yes [id number] 100mg Take 1 [facility] succinate 3-21 tablet by ity o f XL 100 mg 00:00: mouth [place] 24 hr 00 daily. Medical tablet Branch metoprolol 2020-0 Yes [id number] 100mg Take 1 [facility] succinate 3-21 tablet by ity o f XL 100 mg 00:00: mouth [place] 24 hr 00 daily. Medical tablet Branch metoprolol 2020-0 Yes [id number] 100mg Take 1 [facility] succinate 3-21 tablet by ity o f XL 100 mg 00:00: mouth [place] 24 hr 00 daily. Medical tablet Branch metoprolol 2020-0 Yes [id number] 100mg Take 1 [facility] succinate 3-21 tablet by ity o f XL 100 mg 00:00: mouth [place] 24 hr 00 daily. Medical tablet Branch metoprolol 2020-0 Yes [id number] 100mg Take 1 [facility] succinate 3-21 tablet by ity o f XL 100 mg 00:00: mouth [place] 24 hr 00 daily. Medical tablet Branch metoprolol 2020-0 Yes [id number] 100mg Take 1 [facility] succinate 3-21 tablet by ity o f XL 100 mg 00:00: mouth [place] 24 hr 00 daily. Medical tablet Branch metoprolol 2020-0 Yes [id number] 100mg Take 1 [facility] succinate 3-21 tablet by ity o f XL 100 mg 00:00: mouth [place] 24 hr 00 daily. Medical tablet Branch metoprolol 2020-0 Yes [id number] 100mg Take 1 [facility] succinate 3-21 tablet by ity o f XL 100 mg 00:00: mouth [place] 24 hr 00 daily. Medical tablet Branch metoprolol 2020-0 Yes [id number] 100mg Take 1 [facility] succinate 3-21 tablet by ity o f XL 100 mg 00:00: mouth [place] 24 hr 00 daily. Medical tablet Branch metoprolol 2020-0 Yes [id number] 100mg Take 1 [facility] succinate 3-21 tablet by ity o f XL 100 mg 00:00: mouth [place] 24 hr 00 daily. Medical tablet Branch metoprolol 2020-0 Yes [id number] 100mg Take 1 [facility] succinate 3-21 tablet by ity o f XL 100 mg 00:00: mouth [place] 24 hr 00 daily. Medical tablet Branch metoprolol 2020-0 Yes [id number] 100mg Take 1 [facility] succinate 3-21 tablet by ity o f XL 100 mg 00:00: mouth [place] 24 hr 00 daily. Medical tablet Branch metoprolol 2020-0 Yes [id number] 100mg Take 1 [facility] succinate 3-21 tablet by ity o f XL 100 mg 00:00: mouth [place] 24 hr 00 daily. Medical tablet Branch metoprolol 2020-0 Yes [id number] 100mg Take 1 [facility] succinate 3-21 tablet by ity o f XL 100 mg 00:00: mouth [place] 24 hr 00 daily. Medical tablet Branch metoprolol 2020-0 Yes [id number] 100mg Take 1 [facility] succinate 3-21 tablet by ity o f XL 100 mg 00:00: mouth [place] 24 hr 00 daily. Medical tablet Branch metoprolol 2020-0 Yes [id number] 100mg Take 1 [facility] succinate 3-21 tablet by ity o f XL 100 mg 00:00: mouth [place] 24 hr 00 daily. Medical tablet Branch metoprolol 2020-0 Yes [id number] 100mg Take 1 [facility] succinate 3-21 tablet by ity o f XL 100 mg 00:00: mouth [place] 24 hr 00 daily. Medical tablet Branch metoprolol 2020-0 Yes [id number] 100mg Take 1 [facility] succinate 3-21 tablet by ity o f XL 100 mg 00:00: mouth [place] 24 hr 00 daily. Medical tablet Branch metoprolol 2020-0 Yes [id number] 100mg Take 1 [facility] succinate 3-21 tablet by ity o f XL 100 mg 00:00: mouth [place] 24 hr 00 daily. Medical tablet Branch metoprolol 2020-0 Yes [id number] 100mg Take 1 [facility] succinate 3-21 tablet by ity o f XL 100 mg 00:00: mouth [place] 24 hr 00 daily. Medical tablet Branch metoprolol 2020-0 Yes [id number] 100mg Take 1 [facility] succinate 3-21 tablet by ity o f XL 100 mg 00:00: mouth [place] 24 hr 00 daily. Medical tablet Branch metoprolol 2020-0 Yes [id number] 100mg Take 1 [facility] succinate 3-21 tablet by ity o f XL 100 mg 00:00: mouth [place] 24 hr 00 daily. Medical tablet Branch metoprolol 2020-0 Yes [id number] 100mg Take 1 [facility] succinate 3-21 tablet by ity o f XL 100 mg 00:00: mouth [place] 24 hr 00 daily. Medical tablet Branch metoprolol 2020-0 Yes [id number] 100mg Take 1 [facility] succinate 3-21 07 tablet by ity o f XL 100 mg 00:00: mouth [place] 24 hr 00 daily. Medical tablet Branch azithromyci 2020-0 Yes [id number] 250mg Take 1 [facility] n 250 mg 3-21 07 tablet by ity of tablet 00:00: mouth [place] 00 daily. Medical Take 250 Branch mg tablet once daily metoprolol 2020-0 Yes [id number] 100mg Take 1 [facility] succinate 3-21 07 tablet by ity o f XL 100 mg 00:00: mouth [place] 24 hr 00 daily. Medical tablet Branch azithromyci 2019-0 Yes [id number] 250mg Take 1 [facility] n 250 mg 3-21 07 tablet by ity of tablet 00:00: mouth [place] 00 daily. Medical Take 250 Branch mg tablet once daily metoprolol 2020-0 2020- No [id number] 100mg Take 1 [facility] succinate 3-21 01-11 tablet by ity of XL 100 mg 00:00: 00:00 mouth [place] 24 hr 00 :00 daily. Medical tablet Branch azithromyci 2020-0 2019- No [id number] 250mg Take 1 Univers n 250 mg 3-21 08-14 tablet by ity o f tablet 00:00: 00:00 mouth [place] 00 :00 daily. Medical Take 250 Branch mg tablet once daily azithromyci 2019-0 2020- No [id number] 250mg Take 1 Univers n 250 mg [...] of tablet 16:51: mouth [place] 31 daily. [facility] Branch aspirin 81 2020-0 Yes 81mg Take 1 Unive rs mg chewable 3-20 tablet by ity of tablet 16:51: mouth [place] 31 daily. [facility] Branch aspirin 81 2020-0 Yes 81mg Take 1 Unive rs mg chewable 3-20 tablet by ity of tablet 16:51: mouth [place] 31 daily. [facility] Branch aspirin 81 2020-0 Yes 81mg Take 1 Unive rs mg chewable 3-20 tablet by ity of tablet 16:51: mouth [place] 31 daily. [facility] Branch aspirin 81 2020-0 Yes 81mg Take 1 Unive rs mg chewable 3-20 tablet by ity of tablet 16:51: mouth [place] 31 daily. [facility] Branch aspirin 81 2020-0 Yes 81mg Take 1 Unive rs mg chewable 3-20 tablet by ity of tablet 16:51: mouth [place] 31 daily. [facility] Branch aspirin 81 2020-0 Yes 81mg Take 1 Unive rs mg chewable 3-20 tablet by ity of tablet 16:51: mouth [place] 31 daily. [facility] Branch aspirin 81 2020-0 Yes 81mg Take 1 Unive rs mg chewable 3-20 tablet by ity of tablet 16:51: mouth [place] 31 daily. [facility] aspirin 81 2020-0 Yes 81mg Take 1 Unive rs mg chewable 3-20 tablet by ity of tablet 16:51: mouth [place] 31 daily. [facility] aspirin 2020- No 81mg Take 81 mg Uni vers (ASPIRIN 08-1520 by mouth ity of LOW DOSE) 16:51: 00:00 daily. [place] 81 mg EC 31 :00 Medical [facility] LORazepam 2019- No 1mg 1 mg, Univer s (ATIVAN) 08-15 Oral, ity of tablet 1 mg 00:30: 23:58 ONCE, 1 [place] 00 :00 dose, [facility] 08/15/19 at [place] 1930, Routine clopidogreL Yes [id number] 75mg Take 1 Univers (PLAVIX) 75 3-20 tablet by ity of mg tablet 00:00: mouth [place] 00 daily. [facility] insulin NPH Yes [id number] Inject 84 Univers and regular 3-20 units AM, ity of human 70-30 00:00: 84 units [place] (NOVOLIN 00 PM Medical 70/30 U-100 [place] INSULIN) 100 unit/mL (70-30) injection atorvastati Yes [id number] 80mg Take 1 Univers n 80 mg 3-20 07 tablet by ity of tablet 00:00: mouth at [place] 00 bedtime. [facility] clopidogreL 2019-0 Yes [id number] 75mg Take 1 Univers (PLAVIX) 75 3-20 tablet by ity of mg tablet 00:00: mouth [place] 00 daily. [facility] insulin NPH Yes [id number] Inject 84 Univers and regular 3-20 units AM, ity of human 70-30 00:00: 84 units [place] (NOVOLIN 00 PM Medical 70/30 U-100 [place] INSULIN) 100 unit/mL (70-30) injection atorvastati 2019- Yes [id number] 80mg Take 1 Univers n 80 mg 3-20 07 tablet by ity of tablet 00:00: mouth at [place] 00 bedtime. [facility] clopidogreL 2019-0 Yes [id number] 75mg Take 1 Univers (PLAVIX) 75 3-20 tablet by ity of mg tablet 00:00: mouth [place] 00 daily. [facility] insulin NPH Yes [id number] Inject 84 Univers and regular 3-20 units AM, ity of human 70-30 00:00: 84 units [place] (NOVOLIN 00 PM Medical 70/30 U-100 Branch INSULIN) 100 unit/mL (70-30) injection atorvastati 2020-0 Yes [id number] 80mg Take 1 [facility] n 80 mg 3-20 07 tablet by ity of tablet 00:00: mouth at 00 bedtime. Medical Branch clopidogreL 2020-0 Yes [id number] 75mg Take 1 [facility] (PLAVIX) 75 3-20 tablet by ity of mg tablet 00:00: mouth daily. Medical Branch insulin NPH 2020-0 Yes [id number] Inject 84 Univers and regular 3-20 units AM, ity of human 7030 00:00: 84 units [place] (NOVOLIN 00 PM Medical 70/30 U-100 Branch INSULIN) 100 unit/mL (-30) injection atorvastati 2019-0 Yes [id number] 80mg Take 1 [facility] n 80 mg 3-20 07 tablet by ity of tablet 00:00: mouth at bedtime. Medical Branch clopidogreL 2020-0 Yes [id number] 75mg Take 1 [facility] (PLAVIX) 75 3-20 tablet by ity of mg tablet 00:00: mouth daily. Medical Branch insulin NPH 2019-0 Yes [id number] Inject 84 Univers and regular 3-20 units AM, ity of human 00:00: 84 units [place] (NOVOLIN 00 PM Medical 70/30 U-100 Branch INSULIN) 100 unit/mL (30) injection atorvastati 2019-0 Yes [id number] 80mg Take 1 [facility] n 80 mg 3-20 07 tablet by ity of tablet 00:00: mouth at bedtime. Medical Branch clopidogreL 2020-0 Yes [id number] 75mg Take 1 Univers (PLAVIX) 75 3-20 tablet by ity of mg tablet 00:00: mouth daily. Medical Branch insulin NPH 2020-0 Yes [id number] Inject 84 Univers and regular 3-20 units AM, ity of human 30 00:00: 84 units [place] (NOVOLIN 00 PM Medical 70/30 U-100 Branch INSULIN) 100 unit/mL (70-30) injection atorvastati 2020-0 Yes [id number] 80mg Take 1 Univers n 80 mg 3-20 07 tablet by ity of tablet 00:00: mouth at [place] 00 bedtime. Medical Branch clopidogreL 2020-0 Yes [id number] 75mg Take 1 Univers (PLAVIX) 75 3-20 tablet by ity of mg tablet 00:00: mouth [place] 00 daily. Medical Branch insulin NPH 2020-0 Yes [id number] Inject 84 Univers and regular 3-20 units AM, ity of human 70-30 00:00: 84 units [place] (NOVOLIN 00 PM Medical 70/30 U-100 Branch INSULIN) 100 unit/mL (70-30) injection atorvastati 2020-0 Yes [id number] 80mg Take 1 Univers n 80 mg 3-20 07 tablet by ity of tablet 00:00: mouth at [place] 00 bedtime. Medical Branch clopidogreL 2020-0 Yes [id number] 75mg Take 1 Univers (PLAVIX) 75 3-20 tablet by ity of mg tablet 00:00: mouth [place] 00 daily. Medical Branch insulin NPH 2019-0 Yes [id number] Inject 84 Univers and regular 3-20 units AM, ity of human 7030 00:00: 84 units [place] (NOVOLIN 00 PM Medical 70/30 U-100 Branch INSULIN) 100 unit/mL (70-30) injection atorvastati 2019-0 Yes [id number] 80mg Take 1 Univers n 80 mg 3-20 07 tablet by ity of tablet 00:00: mouth at [place] 00 bedtime. Medical Branch clopidogreL 2020-0 Yes [id number] 75mg Take 1 Univers (PLAVIX) 75 3-20 tablet by ity of mg tablet 00:00: mouth 00 daily. Medical Branch insulin NPH 2019-0 Yes [id number] Inject 84 Univers and regular 3-20 units AM, ity of human 7030 00:00: 84 units [place] (NOVOLIN 00 PM Medical 70/30 U-100 Branch INSULIN) 100 unit/mL (70-30) injection atorvastati 2020-0 Yes [id number] 80mg Take 1 Univers n 80 mg 3-20 07 tablet by ity of tablet 00:00: mouth at [place] 00 bedtime. Medical Branch clopidogreL 2020-0 Yes [id number] 75mg Take 1 Univers (PLAVIX) 75 3-20 tablet by ity of mg tablet 00:00: mouth [place] 00 daily. Medical Branch insulin NPH 2019-0 Yes [id number] Inject 84 Univers and regular 3-20 units AM, ity of human 7030 00:00: 84 units [place] (NOVOLIN 00 PM Medical 70/30 U-100 Branch INSULIN) 100 unit/mL (70-30) injection atorvastati 2020-0 Yes [id number] 80mg Take 1 Univers n 80 mg 3-20 07 tablet by ity of tablet 00:00: mouth at [place] 00 bedtime. Medical Branch clopidogreL 2020-0 Yes [id number] 75mg Take 1 Univers (PLAVIX) 75 3-20 tablet by ity of mg tablet 00:00: mouth [place] 00 daily. Medical Branch insulin NPH 2020-0 Yes [id number] Inject 84 Univers and regular 3-20 units AM, ity of human 70-30 00:00: 84 units [place] (NOVOLIN 00 PM Medical 70/30 U-100 Branch INSULIN) 100 unit/mL (70-30) injection atorvastati 2020-0 Yes [id number] 80mg Take 1 Univers n 80 mg 3-20 07 tablet by ity of tablet 00:00: mouth at [place] 00 bedtime. Medical Branch clopidogreL 2020-0 Yes [id number] 75mg Take 1 Univers (PLAVIX) 75 3-20 tablet by ity of mg tablet 00:00: mouth [place] 00 daily. Medical Branch insulin NPH 2019-0 Yes [id number] Inject 84 Univers and regular 3-20 units AM, ity of human 7030 00:00: 84 units [place] (NOVOLIN 00 PM Medical 70/30 U-100 Branch INSULIN) 100 unit/mL (70-30) injection atorvastati 2020-0 Yes [id number] 80mg Take 1 Univers n 80 mg 3-20 07 tablet by ity of tablet 00:00: mouth at [place] 00 bedtime. Medical Branch clopidogreL 2020-0 Yes [id number] 75mg Take 1 Univers (PLAVIX) 75 3-20 tablet by ity of mg tablet 00:00: mouth [place] 00 daily. Medical Branch insulin NPH 2020-0 Yes [id number] Inject 84 Univers and regular 3-20 units AM, ity of human 70-30 00:00: 84 units [place] (NOVOLIN 00 PM Medical 70/30 U-100 Branch INSULIN) 100 unit/mL (70-30) injection atorvastati 2020-0 Yes [id number] 80mg Take 1 Univers n 80 mg 3-20 07 tablet by ity of tablet 00:00: mouth at [place] 00 bedtime. Medical Branch clopidogreL 2020-0 Yes [id number] 75mg Take 1 Univers (PLAVIX) 75 3-20 tablet by ity of mg tablet 00:00: mouth [place] 00 daily. Medical Branch insulin NPH 2019-0 Yes [id number] Inject 84 Univers and regular 3-20 units AM, ity of human 7030 00:00: 84 units [place] (NOVOLIN 00 PM Medical 70/30 U-100 Branch INSULIN) 100 unit/mL (70-30) injection atorvastati 2020-0 Yes [id number] 80mg Take 1 Univers n 80 mg 3-20 07 tablet by ity of tablet 00:00: mouth at bedtime. [facility] Branch clopidogreL 2020-0 Yes [id number] 75mg Take 1 Univers (PLAVIX) 75 3-20 tablet by ity of mg tablet 00:00: mouth 00 daily. [facility] Branch insulin NPH 2019-0 Yes [id number] Inject 84 Univers and regular 3-20 units AM, ity of human 00:00: 84 units [place] (NOVOLIN 00 PM Medical 70/30 U-100 Branch INSULIN) 100 unit/mL (70-30) injection atorvastati 2019-0 Yes [id number] 80mg Take 1 Univers n 80 mg 3-20 tablet by ity of tablet 00:00: mouth at bedtime. [facility] Branch clopidogreL 2020-0 Yes [id number] 75mg Take 1 Univers (PLAVIX) 75 3-20 tablet by ity of mg tablet 00:00: mouth daily. [facility] Branch insulin NPH 2019-0 Yes [id number] Inject 84 Univers and regular 3-20 units AM, ity of human 00:00: 84 units [place] (NOVOLIN 00 PM Medical 70/30 U-100 Branch INSULIN) 100 unit/mL (70-30) injection atorvastati 2020-0 Yes [id number] 80mg Take 1 Univers n 80 mg 3-20 tablet by ity of tablet 00:00: mouth at bedtime. [facility] Branch clopidogreL 2020-0 Yes [id number] 75mg Take 1 Univers (PLAVIX) 75 3-20 tablet by ity of mg tablet 00:00: mouth 00 daily. [facility] Branch insulin NPH 2019-0 Yes [id number] Inject 84 Univers and regular 3-20 units AM, ity of human 70-30 00:00: 84 units [place] (NOVOLIN 00 PM Medical 70/30 U-100 Branch INSULIN) 100 unit/mL (70-30) injection atorvastati 2020-0 Yes [id number] 80mg Take 1 Univers n 80 mg 3-20 tablet by ity of tablet 00:00: mouth at [place] 00 bedtime. Medical Branch clopidogreL 2020-0 Yes [id number] 75mg Take 1 [facility] (PLAVIX) 75 3-20 tablet by ity of mg tablet 00:00: mouth [place] 00 daily. [facility] insulin NPH 2020-0 Yes [id number] Inject 84 [facility] and regular 3-20 units AM, ity of human 7030 00:00: 84 units [place] (NOVOLIN 00 PM Medical 70/30 U-100 Branch INSULIN) 100 unit/mL (70-30) injection atorvastati 2020-0 Yes [id number] 80mg Take 1 [facility] n 80 mg 3-20 tablet by ity of tablet 00:00: mouth at bedtime. Medical Branch clopidogreL 2019-0 Yes [id number] 75mg Take 1 [facility] (PLAVIX) 75 3-20 tablet by ity of mg tablet 00:00: mouth 00 daily. [facility] insulin NPH 2019-0 Yes [id number] Inject 84 [facility] and regular 3-20 units AM, ity of human 00:00: 84 units [place] (NOVOLIN 00 PM Medical 70/30 U-100 Branch INSULIN) 100 unit/mL (70-30) injection atorvastati 2019-0 Yes [id number] 80mg Take 1 [facility] n 80 mg 3-20 tablet by ity of tablet 00:00: mouth at [place] 00 bedtime. [facility] clopidogreL 2020-0 Yes [id number] 75mg Take 1 [facility] (PLAVIX) 75 3-20 tablet by ity of mg tablet 00:00: mouth [place] 00 daily. [facility] insulin NPH 2020-0 Yes [id number] Inject 84 [facility] and regular 3-20 units AM, ity of human 7030 00:00: 84 units [place] (NOVOLIN 00 PM Medical 70/30 U-100 Branch INSULIN) 100 unit/mL (70-30) injection atorvastati 2020-0 Yes [id number] 80mg Take 1 [facility] n 80 mg 3-20 tablet by ity of tablet 00:00: mouth at [place] 00 bedtime. [facility] clopidogreL 2020-0 Yes [id number] 75mg Take 1 [facility] (PLAVIX) 75 3-20 tablet by ity of mg tablet 00:00: mouth [place] 00 daily. [facility] insulin NPH 2020-0 Yes [id number] Inject 84 [facility] and regular 3-20 units AM, ity of human 70-30 00:00: 84 units [place] (NOVOLIN 00 PM Medical 70/30 U-100 Branch INSULIN) 100 unit/mL (70-30) injection atorvastati 2020-0 Yes [id number] 80mg Take 1 [facility] n 80 mg 3-20 tablet by ity of tablet 00:00: mouth at [place] 00 bedtime. [facility] clopidogreL 2020-0 Yes [id number] 75mg Take 1 [facility] (PLAVIX) 75 3-20 tablet by ity of mg tablet 00:00: mouth 00 daily. [facility] insulin NPH 2019-0 Yes [id number] Inject 84 [facility] and regular 3-20 units AM, ity of human 7030 00:00: 84 units [place] (NOVOLIN 00 PM Medical 70/30 U-100 Branch INSULIN) 100 unit/mL (70-30) injection atorvastati 2020-0 Yes [id number] 80mg Take 1 [facility] n 80 mg 3-20 tablet by ity of tablet 00:00: mouth at [place] 00 bedtime. [facility] clopidogreL 2020-0 Yes [id number] 75mg Take 1 [facility] (PLAVIX) 75 3-20 tablet by ity of mg tablet 00:00: mouth daily. Medical [facility] insulin NPH 2020-0 Yes [id number] Inject 84 [facility] and regular 3-20 units AM, ity of human 7030 00:00: 84 units [place] (NOVOLIN 00 PM Medical 70/30 U-100 Branch INSULIN) 100 unit/mL (70-30) injection atorvastati 2020-0 Yes [id number] 80mg Take 1 [facility] n 80 mg 3-20 tablet by ity of tablet 00:00: mouth at [place] 00 bedtime. [facility] Branch clopidogreL 2020-0 Yes [id number] 75mg Take 1 [facility] (PLAVIX) 75 3-20 tablet by ity of mg tablet 00:00: mouth [place] 00 daily. Medical Branch insulin NPH 2020-0 Yes [id number] Inject 84 [facility] and regular 3-20 units AM, ity of human 7030 00:00: 84 units [place] (NOVOLIN 00 PM Medical 70/30 U-100 Branch INSULIN) 100 unit/mL (70-30) injection atorvastati 2020-0 Yes [id number] 80mg Take 1 [facility] n 80 mg 3-20 tablet by ity of tablet 00:00: mouth at [place] 00 bedtime. Medical Branch clopidogreL 2020-0 Yes [id number] 75mg Take 1 [facility] (PLAVIX) 75 3-20 tablet by ity of mg tablet 00:00: mouth [place] 00 daily. [facility] Branch insulin NPH 2020-0 Yes [id number] Inject 84 [facility] and regular 3-20 units AM, ity of human 7030 00:00: 84 units [place] (NOVOLIN 00 PM Medical 70/30 U-100 Branch INSULIN) 100 unit/mL (70-30) injection atorvastati 2020-0 Yes [id number] 80mg Take 1 [facility] n 80 mg 3-20 tablet by ity of tablet 00:00: mouth at [place] 00 bedtime. Medical Branch clopidogreL 2020-0 Yes [id number] 75mg Take 1 [facility] (PLAVIX) 75 3-20 tablet by ity of mg tablet 00:00: mouth [place] 00 daily. Medical Branch insulin NPH 2019-0 Yes [id number] Inject 84 [facility] and regular 3-20 units AM, ity of human 00:00: 84 units [place] (NOVOLIN 00 PM Medical 70/30 U-100 Branch INSULIN) 100 unit/mL (70-30) injection atorvastati 2020-0 Yes [id number] 80mg Take 1 [facility] n 80 mg 3-20 tablet by ity of tablet 00:00: mouth at [place] 00 bedtime. Medical Branch clopidogreL 2020-0 Yes [id number] 75mg Take 1 [facility] (PLAVIX) 75 3-20 tablet by ity of mg tablet 00:00: mouth [place] 00 daily. Medical Branch insulin NPH 2020-0 Yes [id number] Inject 84 [facility] and regular 3-20 units AM, ity of human 7030 00:00: 84 units [place] (NOVOLIN 00 PM Medical 70/30 U-100 Branch INSULIN) 100 unit/mL (70-30) injection atorvastati 2020-0 Yes [id number] 80mg Take 1 [facility] n 80 mg 3-20 tablet by ity of tablet 00:00: mouth at [place] 00 bedtime. Medical Branch clopidogreL 2020-0 Yes [id number] 75mg Take 1 [facility] (PLAVIX) 75 3-20 tablet by ity of mg tablet 00:00: mouth [place] 00 daily. Medical Branch insulin NPH 2020-0 Yes [id number] Inject 84 [facility] and regular 3-20 units AM, ity of human 70-30 00:00: 84 units [place] (NOVOLIN 00 PM Medical 70/30 U-100 Branch INSULIN) 100 unit/mL (70-30) injection atorvastati 2020-0 Yes [id number] 80mg Take 1 [facility] n 80 mg 3-20 tablet by ity of tablet 00:00: mouth at [place] 00 bedtime. Medical Branch clopidogreL 2020-0 Yes [id number] 75mg Take 1 [facility] (PLAVIX) 75 3-20 tablet by ity of mg tablet 00:00: mouth 00 daily. Medical Branch insulin NPH 2019-0 Yes [id number] Inject 84 [facility] and regular 3-20 units AM, ity of human 7030 00:00: 84 units [place] (NOVOLIN 00 PM Medical 70/30 U-100 Branch INSULIN) 100 unit/mL (70-30) injection atorvastati 2020-0 Yes [id number] 80mg Take 1 [facility] n 80 mg 3-20 tablet by ity of tablet 00:00: mouth at [place] 00 bedtime. Medical Branch clopidogreL 2020-0 Yes [id number] 75mg Take 1 [facility] (PLAVIX) 75 3-20 tablet by ity of mg tablet 00:00: mouth daily. Medical Branch insulin NPH 2020-0 Yes [id number] Inject 84 [facility] and regular 3-20 units AM, ity of human 7030 00:00: 84 units [place] (NOVOLIN 00 PM Medical 70/30 U-100 Branch INSULIN) 100 unit/mL (70-30) injection atorvastati 2020-0 Yes [id number] 80mg Take 1 [facility] n 80 mg 3-20 tablet by ity of tablet 00:00: mouth at [place] 00 bedtime. Medical Branch clopidogreL 2020-0 Yes [id number] 75mg Take 1 [facility] (PLAVIX) 75 3-20 tablet by ity of mg tablet 00:00: mouth [place] 00 daily. Medical Branch insulin NPH 2020-0 Yes [id number] Inject 84 [facility] and regular 3-20 units AM, ity of human 70-30 00:00: 84 units [place] (NOVOLIN 00 PM Medical 70/30 U-100 Branch INSULIN) 100 unit/mL (70-30) injection atorvastati 2020-0 Yes [id number] 80mg Take 1 [facility] n 80 mg 3-20 tablet by ity of tablet 00:00: mouth at [place] 00 bedtime. Medical Branch clopidogreL 2020-0 Yes [id number] 75mg Take 1 [facility] (PLAVIX) 75 3-20 tablet by ity of mg tablet 00:00: mouth [place] 00 daily. Medical Branch insulin NPH 2019-0 Yes [id number] Inject 84 [facility] and regular 3-20 units AM, ity of human 00:00: 84 units [place] (NOVOLIN 00 PM Medical 70/30 U-100 Branch INSULIN) 100 unit/mL (70-30) injection atorvastati 2019-0 Yes [id number] 80mg Take 1 [facility] n 80 mg 3-20 tablet by ity of tablet 00:00: mouth at [place] 00 bedtime. Medical Branch clopidogreL 2020-0 Yes [id number] 75mg Take 1 [facility] (PLAVIX) 75 3-20 tablet by ity of mg tablet 00:00: mouth 00 daily. Medical Branch insulin NPH 2019-0 Yes [id number] Inject 84 [facility] and regular 3-20 units AM, ity of human 00:00: 84 units [place] (NOVOLIN 00 PM Medical 70/30 U-100 Branch INSULIN) 100 unit/mL (70-30) injection atorvastati 2020-0 Yes [id number] 80mg Take 1 [facility] n 80 mg 3-20 tablet by ity of tablet 00:00: mouth at [place] 00 bedtime. Medical Branch clopidogreL 2020-0 Yes [id number] 75mg Take 1 [facility] (PLAVIX) 75 3-20 tablet by ity of mg tablet 00:00: mouth [place] 00 daily. Medical Branch insulin NPH 2020-0 Yes [id number] Inject 84 [facility] and regular 3-20 units AM, ity of human 00:00: 84 units [place] (NOVOLIN 00 PM Medical 70/30 U-100 Branch INSULIN) 100 unit/mL (70-30) injection atorvastati 2020-0 Yes [id number] 80mg Take 1 [facility] n 80 mg 3-20 tablet by ity of tablet 00:00: mouth at [place] 00 bedtime. [facility] Branch clopidogreL 2020-0 Yes [id number] 75mg Take 1 [facility] (PLAVIX) 75 3-20 tablet by ity of mg tablet 00:00: mouth [place] 00 daily. Medical Branch insulin NPH 2020-0 Yes [id number] Inject 84 [facility] and regular 3-20 units AM, ity of human 70-30 00:00: 84 units [place] (NOVOLIN 00 PM Medical 70/30 U-100 Branch INSULIN) 100 unit/mL (70-30) injection atorvastati 2020-0 Yes [id number] 80mg Take 1 [facility] n 80 mg 3-20 tablet by ity of tablet 00:00: mouth at [place] 00 bedtime. Medical Branch clopidogreL 2020-0 Yes [id number] 75mg Take 1 [facility] (PLAVIX) 75 3-20 tablet by ity of mg tablet 00:00: mouth 00 daily. Medical Branch insulin NPH 2019-0 Yes [id number] Inject 84 [facility] and regular 3-20 units AM, ity of human 7030 00:00: 84 units [place] (NOVOLIN 00 PM Medical 70/30 U-100 Branch INSULIN) 100 unit/mL (70-30) injection atorvastati 2020-0 Yes [id number] 80mg Take 1 [facility] n 80 mg 3-20 tablet by ity of tablet 00:00: mouth at [place] 00 bedtime. Medical Branch clopidogreL 2020-0 Yes [id number] 75mg Take 1 [facility] (PLAVIX) 75 3-20 tablet by ity of mg tablet 00:00: mouth daily. Medical Branch insulin NPH 2020-0 Yes [id number] Inject 84 [facility] and regular 3-20 units AM, ity of human 7030 00:00: 84 units [place] (NOVOLIN 00 PM Medical 70/30 U-100 Branch INSULIN) 100 unit/mL (70-30) injection atorvastati 2020-0 Yes [id number] 80mg Take 1 [facility] n 80 mg 3-20 tablet by ity of tablet 00:00: mouth at [place] 00 bedtime. Medical Branch clopidogreL 2020-0 Yes [id number] 75mg Take 1 [facility] (PLAVIX) 75 3-20 tablet by ity of mg tablet 00:00: mouth [place] 00 daily. Medical Branch insulin NPH 2020-0 Yes [id number] Inject 84 [facility] and regular 3-20 units AM, ity of human 70-30 00:00: 84 units [place] (NOVOLIN 00 PM Medical 70/30 U-100 Branch INSULIN) 100 unit/mL (70-30) injection atorvastati 2020-0 Yes [id number] 80mg Take 1 [facility] n 80 mg 3-20 tablet by ity of tablet 00:00: mouth at [place] 00 bedtime. Medical Branch clopidogreL 2020-0 Yes [id number] 75mg Take 1 [facility] (PLAVIX) 75 3-20 tablet by ity of mg tablet 00:00: mouth [place] 00 daily. Medical Branch insulin NPH 2019-0 Yes [id number] Inject 84 [facility] and regular 3-20 units AM, ity of human 70 00:00: 84 units [place] (NOVOLIN 00 PM Medical 70/30 U-100 Branch INSULIN) 100 unit/mL (70-30) injection atorvastati 2020-0 Yes [id number] 80mg Take 1 [facility] n 80 mg 3-20 tablet by ity of tablet 00:00: mouth at bedtime. Medical Branch clopidogreL 2020-0 Yes [id number] 75mg Take 1 [facility] (PLAVIX) 75 3-20 tablet by ity of mg tablet 00:00: mouth daily. Medical Branch insulin NPH 2019-0 Yes [id number] Inject 84 [facility] and regular 3-20 units AM, ity of human 00:00: 84 units [place] (NOVOLIN 00 PM Medical 70/30 U-100 Branch INSULIN) 100 unit/mL (70-30) injection atorvastati 2020-0 Yes [id number] 80mg Take 1 [facility] n 80 mg 3-20 tablet by ity of tablet 00:00: mouth at [place] bedtime. Medical Branch clopidogreL 2020-0 Yes [id number] 75mg Take 1 [facility] (PLAVIX) 75 3-20 tablet by ity of mg tablet 00:00: mouth 00 daily. Medical Branch insulin NPH 2020-0 Yes [id number] Inject 84 [facility] and regular 3-20 units AM, ity of human 70 00:00: 84 units [place] (NOVOLIN 00 PM Medical 70/30 U-100 Branch INSULIN) 100 unit/mL (70-30) injection atorvastati 2020-0 Yes [id number] 80mg Take 1 [facility] n 80 mg 3-20 tablet by ity of tablet 00:00: mouth at [place] 00 bedtime. Medical Branch clopidogreL 2020-0 Yes [id number] 75mg Take 1 [facility] (PLAVIX) 75 3-20 tablet by ity of mg tablet 00:00: mouth [place] 00 daily. Medical Branch insulin NPH 2020-0 Yes [id number] Inject 84 [facility] and regular 3-20 units AM, ity of human 7030 00:00: 84 units [place] (NOVOLIN 00 PM Medical 70/30 U-100 Branch INSULIN) 100 unit/mL (70-30) injection atorvastati 2020-0 Yes [id number] 80mg Take 1 [facility] n 80 mg 3-20 tablet by ity of tablet 00:00: mouth at [place] 00 bedtime. Medical Branch clopidogreL 2020-0 Yes [id number] 75mg Take 1 [facility] (PLAVIX) 75 3-20 tablet by ity of mg tablet 00:00: mouth 00 daily. Medical Branch insulin NPH 2019-0 Yes [id number] Inject 84 [facility] and regular 3-20 units AM, ity of human 00:00: 84 units [place] (NOVOLIN 00 PM Medical 70/30 U-100 Branch INSULIN) 100 unit/mL (70-30) injection atorvastati 2020-0 Yes [id number] 80mg Take 1 [facility] n 80 mg 3-20 tablet by ity of tablet 00:00: mouth at [place] bedtime. Medical Branch clopidogreL 2020-0 Yes [id number] 75mg Take 1 [facility] (PLAVIX) 75 3-20 tablet by ity of mg tablet 00:00: mouth daily. Medical Branch insulin NPH 2020-0 Yes [id number] Inject 84 [facility] and regular 3-20 units AM, ity of human 7030 00:00: 84 units [place] (NOVOLIN 00 PM Medical 70/30 U-100 Branch INSULIN) 100 unit/mL (70-30) injection atorvastati 2020-0 Yes [id number] 80mg Take 1 [facility] n 80 mg 3-20 tablet by ity of tablet 00:00: mouth at [place] 00 bedtime. Medical Branch clopidogreL 2020-0 Yes [id number] 75mg Take 1 [facility] (PLAVIX) 75 3-20 tablet by ity of mg tablet 00:00: mouth 00 daily. Medical Branch insulin NPH 2020-0 Yes [id number] Inject 84 [facility] and regular 3-20 units AM, ity of human 70-30 00:00: 84 units [place] (NOVOLIN 00 PM Medical 70/30 U-100 Branch INSULIN) 100 unit/mL (70-30) injection atorvastati 2020-0 Yes [id number] 80mg Take 1 [facility] n 80 mg 3-20 tablet by ity of tablet 00:00: mouth at [place] 00 bedtime. Medical Branch clopidogreL 2020-0 Yes [id number] 75mg Take 1 [facility] (PLAVIX) 75 3-20 tablet by ity of mg tablet 00:00: mouth 00 daily. Medical Branch insulin NPH 2019-0 Yes [id number] Inject 84 [facility] and regular 3-20 units AM, ity of human 00:00: 84 units [place] (NOVOLIN 00 PM Medical 70/30 U-100 Branch INSULIN) 100 unit/mL (70-30) injection atorvastati 2020-0 Yes [id number] 80mg Take 1 [facility] n 80 mg 3-20 tablet by ity of tablet 00:00: mouth at [place] bedtime. Medical Branch clopidogreL 2020-0 Yes [id number] 75mg Take 1 [facility] (PLAVIX) 75 3-20 tablet by ity of mg tablet 00:00: mouth daily. Medical Branch insulin NPH 2019-0 Yes [id number] Inject 84 [facility] and regular 3-20 units AM, ity of human 00:00: 84 units [place] (NOVOLIN 00 PM Medical 70/30 U-100 Branch INSULIN) 100 unit/mL (70-30) injection atorvastati 2020-0 Yes [id number] 80mg Take 1 [facility] n 80 mg 3-20 tablet by ity of tablet 00:00: mouth at [place] bedtime. Medical Branch clopidogreL 2020-0 Yes [id number] 75mg Take 1 [facility] (PLAVIX) 75 3-20 tablet by ity of mg tablet 00:00: mouth 00 daily. Medical Branch insulin NPH 2020-0 Yes [id number] Inject 84 [facility] and regular 3-20 units AM, ity of human 00:00: 84 units [place] (NOVOLIN 00 PM Medical 70/30 U-100 Branch INSULIN) 100 unit/mL (70-30) injection atorvastati 2020-0 Yes [id number] 80mg Take 1 [facility] n 80 mg 3-20 tablet by ity of tablet 00:00: mouth at [place] 00 bedtime. Medical Branch clopidogreL 2020-0 Yes [id number] 75mg Take 1 [facility] (PLAVIX) 75 3-20 tablet by ity of mg tablet 00:00: mouth [place] 00 daily. Medical Branch insulin NPH 2020-0 Yes [id number] Inject 84 [facility] and regular 3-20 units AM, ity of human 7030 00:00: 84 units [place] (NOVOLIN 00 PM Medical 70/30 U-100 Branch INSULIN) 100 unit/mL (70-30) injection atorvastati 2020-0 Yes [id number] 80mg Take 1 [facility] n 80 mg 3-20 tablet by ity of tablet 00:00: mouth at [place] 00 bedtime. Medical Branch clopidogreL 2020-0 Yes [id number] 75mg Take 1 [facility] (PLAVIX) 75 3-20 tablet by ity of mg tablet 00:00: mouth daily. Medical Branch insulin NPH 2019-0 Yes [id number] Inject 84 [facility] and regular 3-20 units AM, ity of human 7030 00:00: 84 units [place] (NOVOLIN 00 PM Medical 70/30 U-100 Branch INSULIN) 100 unit/mL (70-30) injection atorvastati 2020-0 Yes [id number] 80mg Take 1 [facility] n 80 mg 3-20 tablet by ity of tablet 00:00: mouth at [place] bedtime. Medical Branch clopidogreL 2020-0 Yes [id number] 75mg Take 1 [facility] (PLAVIX) 75 3-20 tablet by ity of mg tablet 00:00: mouth daily. Medical Branch insulin NPH 2020-0 Yes [id number] Inject 84 [facility] and regular 3-20 units AM, ity of human 7030 00:00: 84 units [place] (NOVOLIN 00 PM Medical 70/30 U-100 Branch INSULIN) 100 unit/mL (70-30) injection atorvastati 2020-0 Yes [id number] 80mg Take 1 [facility] n 80 mg 3-20 tablet by ity of tablet 00:00: mouth at [place] 00 bedtime. [facility] Branch clopidogreL 2020-0 Yes [id number] 75mg Take 1 [facility] (PLAVIX) 75 3-20 tablet by ity of mg tablet 00:00: mouth 00 daily. Medical Branch insulin NPH 2020-0 Yes [id number] Inject 84 [facility] and regular 3-20 units AM, ity of human 70-30 00:00: 84 units [place] (NOVOLIN 00 PM Medical 70/30 U-100 Branch INSULIN) 100 unit/mL (70-30) injection atorvastati 2020-0 Yes [id number] 80mg Take 1 [facility] n 80 mg 3-20 tablet by ity of tablet 00:00: mouth at [place] 00 bedtime. Medical Branch clopidogreL 2020-0 Yes [id number] 75mg Take 1 [facility] (PLAVIX) 75 3-20 tablet by ity of mg tablet 00:00: mouth [place] 00 daily. Medical Branch insulin NPH 2019-0 Yes [id number] Inject 84 [facility] and regular 3-20 units AM, ity of human 70-30 00:00: 84 units [place] (NOVOLIN 00 PM Medical 70/30 U-100 Branch INSULIN) 100 unit/mL (70-30) injection atorvastati 2019-0 Yes [id number] 80mg Take 1 [facility] n 80 mg 3-20 tablet by ity of tablet 00:00: mouth at [place] 00 bedtime. Medical Branch clopidogreL 2020-0 Yes [id number] 75mg Take 1 [facility] (PLAVIX) 75 3-20 tablet by ity of mg tablet 00:00: mouth [place] 00 daily. Medical Branch atorvastati 2020-0 Yes [id number] 80mg Take 1 [facility] n 80 mg 3-20 tablet by ity of tablet 00:00: mouth at [place] 00 bedtime. Medical Branch clopidogreL 2020-0 Yes [id number] 75mg Take 1 [facility] (PLAVIX) 75 3-20 tablet by ity of mg tablet 00:00: mouth 00 daily. Medical Branch atorvastati 2020-0 Yes [id number] 80mg Take 1 [facility] n 80 mg 3-20 tablet by ity of tablet 00:00: mouth at [place] 00 bedtime. Medical Branch clopidogreL 2020-0 Yes [id number] 75mg Take 1 [facility] (PLAVIX) 75 3-20 tablet by ity of mg tablet 00:00: mouth [place] 00 daily. Medical Branch atorvastati 2020-0 Yes [id number] 80mg Take 1 [facility] n 80 mg 3-20 tablet by ity of tablet 00:00: mouth at [place] 00 bedtime. Medical Branch clopidogreL 2020-0 Yes [id number] 75mg Take 1 [facility] (PLAVIX) 75 3-20 tablet by ity of mg tablet 00:00: mouth [place] 00 daily. Medical Branch atorvastati 2020-0 Yes [id number] 80mg Take 1 [facility] n 80 mg 3-20 tablet by ity of tablet 00:00: mouth at [place] 00 bedtime. Medical Branch clopidogreL 2020-0 Yes [id number] 75mg Take 1 [facility] (PLAVIX) 75 3-20 tablet by ity of mg tablet 00:00: mouth [place] 00 daily. Medical Branch atorvastati 2020-0 Yes [id number] 80mg Take 1 [facility] n 80 mg 3-20 tablet by ity of tablet 00:00: mouth at [place] 00 bedtime. Medical Branch clopidogreL 2020-0 Yes [id number] 75mg Take 1 [facility] (PLAVIX) 75 3-20 tablet by ity of mg tablet 00:00: mouth [place] 00 daily. Medical Branch clopidogreL 2020-0 Yes [id number] 75mg Take 1 [facility] (PLAVIX) 75 3-20 tablet by ity of mg tablet 00:00: mouth [place] 00 daily. Medical Branch clopidogreL 2020-0 Yes [id number] 75mg Take 1 [facility] (PLAVIX) 75 3-20 tablet by ity of mg tablet 00:00: mouth [place] 00 daily. Medical Branch clopidogreL 2020-0 Yes [id number] 75mg Take 1 [facility] (PLAVIX) 75 3-20 tablet by ity of mg tablet 00:00: mouth [place] 00 daily. Medical Branch clopidogreL 2020-0 Yes [id number] 75mg Take 1 [facility] (PLAVIX) 75 3-20 tablet by ity of mg tablet 00:00: mouth [place] 00 daily. Medical Branch clopidogreL 2020-0 Yes [id number] 75mg Take 1 [facility] (PLAVIX) 75 3-20 tablet by ity of mg tablet 00:00: mouth [place] 00 daily. Medical Branch clopidogreL 2020-0 Yes [id number] 75mg Take 1 [facility] (PLAVIX) 75 3-20 tablet by ity of mg tablet 00:00: mouth [place] 00 daily. Medical Branch clopidogreL 2020-0 Yes [id number] 75mg Take 1 [facility] (PLAVIX) 75 3-20 tablet by ity of mg tablet 00:00: mouth [place] 00 daily. [facility] Branch clopidogreL 2020-0 Yes [id number] 75mg Take 1 [facility] (PLAVIX) 75 3-20 tablet by ity of mg tablet 00:00: mouth [place] 00 daily. [facility] Branch clopidogreL 2020-0 Yes [id number] 75mg Take 1 [facility] (PLAVIX) 75 3-20 tablet by ity of mg tablet 00:00: mouth [place] 00 daily. Medical Branch clopidogreL 2020-0 Yes [id number] 75mg Take 1 [facility] (PLAVIX) 75 3-20 tablet by ity of mg tablet 00:00: mouth [place] 00 daily. Medical Branch clopidogreL 2020-0 Yes [id number] 75mg Take 1 [facility] (PLAVIX) 75 3-20 tablet by ity of mg tablet 00:00: mouth [place] 00 daily. Medical Branch clopidogreL 2020-0 Yes [id number] 75mg Take 1 [facility] (PLAVIX) 75 3-20 tablet by ity of mg tablet 00:00: mouth [place] 00 daily. Medical Branch insulin NPH 2019-0 Yes [id number] Inject 84 [facility] and regular 3-20 units AM, ity of human 70-30 00:00: 84 units [place] (NOVOLIN 00 PM Medical 70/30 U-100 Branch INSULIN) 100 unit/mL (70-30) injection atorvastati 2019-0 Yes [id number] 80mg Take 1 [facility] n 80 mg 3-20 07 tablet by ity of tablet 00:00: mouth at [place] 00 bedtime. Medical Branch clopidogreL 2019-0 Yes [id number] 75mg Take 1 [facility] (PLAVIX) 75 3-20 tablet by ity of mg tablet 00:00: mouth [place] 00 daily. Medical Branch insulin NPH 2019-0 Yes [id number] Inject 84 [facility] and regular 3-20 units AM, ity of human 70-30 00:00: 84 units [place] (NOVOLIN 00 PM Medical 70/30 U-100 Branch INSULIN) 100 unit/mL (70-30) injection atorvastati 2019-0 Yes [id number] 80mg Take 1 [facility] n 80 mg [...] Medical placement Branch clopidogreL 2020-0 2020- No [id number] 75mg Take 1 [facility] (PLAVIX) 75 3-20 07-06 tablet by it y of mg tablet 00:00: 00:00 mouth [place] 00 :00 daily. Medical Branch atorvastati 2020- No [id number] 80mg Take 1 [facility] n 80 mg 3-20 -06 tablet by ity of tablet 00:00: 00:00 mouth at [place] 00 :00 bedtime. Medical Branch atorvastati 2020- No [id number] 80mg Take 1 [facility] n 80 mg 3-20 -06 tablet by ity of tablet 00:00: 00:00 mouth at [place] 00 :00 bedtime. Medical Branch atorvastati 2020- No Coronary 80mg Take 1 [facility] n 80 mg 3-20 -06 artery tablet by ity of tablet 00:00: 00:00 disease mouth at [place] 00 :00 involving bedtime. [facility] [place] [facility] coronary artery of [place] heart without angina pectoris atorvastati 2020- No Coronary 80mg Take 1 [facility] n 80 mg 3-20 -06 artery tablet by ity of tablet 00:00: 00:00 disease mouth at [place] 00 :00 involving bedtime. [facility] [place] [facility] coronary artery of [place] heart without angina pectoris insulin NPH 2020- No [id number] Inject 84 [facility] and regular 3- 04-12 [...] ity of mg 18:45: 17:57 ONCE, 1 [place] 00 :00 dose, [facility] 08/15/19 at [...] PF 2019-0 2020- No Slow IV Un clai (SUBLIMAZE 08-14 Push, ity of (PF)) 14:41: [...] ity o f injection 14:05: 14:05 FOR [place] 50 :50 PROCEDURE Medical USE, 1 Branch [...] Medi blanquita (8 %) IV 08/15/19 at [facility] h Piggyback 4 0745, g Routine ipratropium 2019-0 Yes 3mL 3 mL, Unive rs -albuterol 08-14 Inhalation ity of (DUONEB) 10:24: , QID, [place] 0.5 mg-3 00 First dose Medic al [...] o f human 03:33: 03:38 us, ONCE, [place] (HUMULIN R) 00 :00 1 dose, Medic al injection Wed Branch 10 Units 08/14/19 at 2245, Routine insulin 2020-0 2020- No 8U 8 Units, Unive rs regular 08-13 Slow IV ity of human 22:00: 21:23 Push, [place] (HUMULIN R) 00 :00 ONCE, 1 Medic al injection 8 dose, Wed Bra nch Units 08/14/19 at 1700, Routine sulfur 2019-0 2020- No 5mL 5 mL, Univers hexafluorid 08-13 Intravenou i ty of e microsphr 17:15: 14:00 s, ONCE, 1 [place] (LUMASON) 00 :00 dose, Wed Medic al [...] (rounded ity of (LANTUS 14:00: 06:45 from [place] U-100) 00 :18 20.175 Medical injection Units [...] Routine ipratropium 2019- No 3mL 3 mL, [facility] ers -albuterol 08-13 Inhalation it y of (DUONEB) 13:00: 10:24 , QID, [place] 0.5 mg-3 00 :42 First dose Medic [...] ity of RAPID 12:30: 06:45 from 6.725 [place] (NOVOLOG) 00 :18 Units = Medical injection 7 0.25 Branch Units Units/kg/d ay ?80.7 kg), [facility] T[facility], First dose on Mon08/14/19 at 0730, Until Discontinu ed, Routine magnesium 2019-0 2020- No 4g 4 g, IV Univ ers sulfate in 08-13 Piggyback, it y of water 4 12:15: 14:00 ONCE, 1 [place] gram/50 mL 00 :00 dose, Mon Medi blanquita (8 %) IV 08/14/19 at [facility] h Piggyback 4 0715, g Routine dextrose 2019-0 Yes 250mL 250 mL, IV [place] 10% (D10W) 08-13 Infusion, ity of bolus 12:06: PRN - SEE [place] infusion 49 INSTRUCTIO Medic al 250 mL [...] KIT) 55 Starting Medical injection 1 Mon [place] mg 08/14/19 at 0705, Until Discontinu ed, TRANG, Blood Glucose < or = 70 mg/dL and patient is unable to swallow or has mental changes. morpHINE 2020- No 2mg 2 mg, Slow [place] injection 2 08-13 IV Push, ity of mg 11:45: 10:43 ONCE, 1 [place] 00 :00 dose, Mon Medical 08/14/19 at [place] 0645, Routine atorvastati 2019-0 2020- No 40mg 40 mg, Uni vers n (LIPITOR) 08-13 Oral, QHS, i ty of tablet 40 02:00: 14:33 First dose [place] mg 00 :04 on [facility] 08/13/19 at [place] 2100, Until Discontinu ed, Routine Sliding 2019-0 2020- No Subcutaneo Uni vers Scale 08-12 us, TID ity of Insulin - 22:00: 12:09 MEALS+HS, [place] 00 :18 First dose Medical (NOVOLOG) + on [facility] 08/13/19 at Testing 1700, Until Discontinu ed, Routine dextrometho 2019-0 Yes 5mL 5 mL, [facility] rs rphan-guaif 08-12 Oral, ity of enesin 21:03: Q6HPRN, [place] (ROBITUSSIN 48 Starting Medi blanquita DM) 10-100 [facility] mg/5 mL 08/13/19 at solution 5 1603, mL Until Discontinu ed, Routine, Cough morpHINE 2019- No 4mg 4 mg, Slow [place] injection 4 08-12 IV Push, ity of mg 21:00: 20:06 ONCE, 1 [place] 00 :00 dose, [facility] 08/13/19 at Branch 1600, Routine clopidogreL 2019- No 300mg 300 mg, U nivers (PLAVIX) 08-12 Oral, ity of tablet 300 20:30: 21:32 ONCE, 1 [place] mg 00 :00 dose, [facility] 08/13/19 at Branch 1530, Routine NaCl 0.9% 2019- No 500mL at [facility] ([facility] IV 08-12 mL/hr, IV ity of infusion 20:30: 19:41 Infusion, [place] 500 mL 00 :00 ONCE, 1 Medical dose, [facility] 08/13/19 at 1530, Routine
50 cc/hr for 500 mL total
HYDROcodone 2019- No 1{tbl} 1 tablet, Univers -acetaminop 08-12 Oral, ity of hen (NORCO 20:15: 02:39 ONCE, 1 [place] 5) 5-325 mg 00 :00 dose, [facility] ical tablet 1 08/13/19 at [facility] h tablet 1515, Routine FENTanyl PF 2020- No Slow IV [place] (SUBLIMAZE 08-12 Push, ity of (PF)) 16:26: 16:26 TITRATE - [place] injection 15 :15 FOR Medical PROCEDURE Branch USE, 1 dose, Starting [facility] 08/13/19 at 1126, Until Mon08/13/19 at 1126, Routine midazolam 2019-0 2020- No IV Push, Uni vers (VERSED) 08-12 TITRATE - ity o f injection 16:26: 16:26 FOR [place] 05 :05 PROCEDURE Medical USE, 1 Branch dose, Starting [facility] 08/13/19 at 1126, Until [facility] 08/13/19 at 1126, Routine clopidogreL 2019-0 2020- No 300mg 300 mg, U nivers (PLAVIX) 08-12 Oral, ity of tablet 300 15:30: 15:48 ONCE, 1 [place] mg 00 :00 dose, [facility] 08/13/19 at Branch 1030, Routine pantoprazol 2019-0 Yes 40mg 40 mg, Univ ers e 08-12 Oral, ity of (PROTONIX) 14:00: DAILY, [place] EC tablet 00 First dose Medi blanquita 40 mg on [facility] 08/13/19 at 0900, Until Discontinu ed, Routine isosorbide 2019-0 Yes 30mg 30 mg, Unive rs mononitrate 08-12 Oral, ity of (IMDUR) 24 14:00: DAILY, [place] hr tablet 00 First dose Medi blanquita 30 mg on [facility] 08/13/19 at 0900, Until Discontinu ed, Routine furosemide 2019-0 Yes 20mg 20 mg, Unive rs (LASIX) 08-12 Oral, ity of tablet 20 14:00: DAILY, [place] mg 00 First dose Medical on [facility] 08/13/19 at 0900, Until Discontinu ed, Routine insulin NPH 2019- 2020- No .3U/kg/ 12 Units Univers (HUMULIN N) 08-12 d (rounded ity of injection 14:00: 12:08 from [place] 12 Units 00 :24 12.195 Medical Units = Branch 0.3 Units/kg/d ay ?81.3 kg), Subcutaneo us, QAM+HS, First dose on [facility] 08/13/19 at 0900, Until Discontinu ed, Routine metoprolol 2019-0 2020- No 25mg 25 mg, Univ ers tartrate 08-12 Oral, ity of (LOPRESSOR) 14:00: 12:10 DAILY, [place] tablet 25 00 :23 First dose Medi blanquita mg on [facility] 08/13/19 at 0900, Until Discontinu ed, Routine aspirin EC 2019- 2020- No 81mg 81 mg, Univ ers tablet 81 08-12 Oral, ity of mg 14:00: 13:38 DAILY, [place] 00 :12 First dose Medical on [facility] 08/13/19 at 0900, Until Discontinu ed, Routine gabapentin 2020-0 Yes 800mg 800 mg, Uni vers (NEURONTIN) 08-12 Oral, TID, it y of tablet 800 13:00: First dose [place] mg 00 on [facility] 08/13/19 at Branch 0800, Until Discontinu ed, Routine insulin 2019- 2020- No .3U/kg/ 8 Units Uni vers aspart 08-1218 d (rounded ity of RAPID 13:00: 12:08 from 8.13 [place] (NOVOLOG) 00 :24 Units = Medical injection 8 0.3 Branch Units Units/kg/d ay ?81.3 kg), Subcutaneo us, TID MEALS, First dose on [facility] 08/13/19 at 0800, Until Discontinu ed, Routine heparin 2019-0 2020- No 12U/kg/ 12 Univer s 25,000 08-12 h Units/kg/h ity of units/250mL 10:45: 18:00 r ?81.3 kg [place] in NS 00 :11 (9.756 Medical weight [...] ONCE, 1 Medical Soln 4,000 dose, Mon [facility] ch Units 08/13/19 at 0500, Routine heparin 2020-0 Yes 3000U FOR Univers (1,000 08-12 REBOLUSING ity of unit/mL, 10 09:43: , Starting [place] mL vial) 08 [facility] for 08/13/19 at Branch Rebolusing 0443, [...] Oral, ity of enesin 07:25: 21:03 Q6HPRN, [place] (ROBITUSSIN 59 :57 Starting Medi blanquita DM) 10-100 [facility] mg/5 mL 08/13/19 at solution 5 0225, mL Until 08/13/19 at 1603, Routine, Cough morpHINE 2020-0 2020- No 2mg 2 mg, Slow [place] injection 2 08-12 IV Push, ity of mg 06:08: 13:24 Q6HPRN, 2 [place] 33 :00 doses, Medical Starting Branch [facility] 08/13/19 at 0108, Until 08/13/19 at 0824, Routine, Chest pain aspirin 2020-0 Yes 81mg Take 81 mg Univ ers (ASPIRIN 3-17 by mouth ity of LOW DOSE) 04:49: daily. [place] 81 mg EC 06 Medical tablet [place] aspirin 2020-0 Yes 81mg Take 81 mg Univ ers (ASPIRIN 3-17 by mouth ity of LOW DOSE) 04:49: daily. [place] 81 mg EC 06 Medical tablet [place] nitroglycer 2020-0 Yes .4mg 0.4 mg, Uni vers in 08-12 Sublingual ity of (NITROSTAT) 04:31: , Q5MIN [place] sublingual 28 PRN, Medical tablet 0.4 Starting Branc h mg 08/12/19 at 2331, Until Discontinu ed, Routine, Chest pain aspirin 2020-0 Yes 81mg Take 81 mg Univ ers (ASPIRIN 3-09 by mouth ity of LOW DOSE) 16:06: daily. [place] 81 mg EC 37 Medical tablet Branch aspirin 2020-0 Yes 81mg Take 81 mg Univ ers (ASPIRIN 3-09 by mouth ity of LOW DOSE) 16:06: daily. [place] 81 mg EC 37 Medical tablet Branch aspirin 2020-0 Yes 81mg Take 81 mg Univ ers (ASPIRIN 3-09 by mouth ity of LOW DOSE) 16:06: daily. [place] 81 mg EC 37 Medical tablet Branch aspirin 2020-0 Yes 81mg Take 81 mg Univ ers (ASPIRIN 3-09 by mouth ity of LOW DOSE) 16:06: daily. [place] 81 mg EC 37 Medical tablet Branch aspirin 2020-0 Yes 81mg Take 81 mg Univ ers (ASPIRIN 3-09 by mouth ity of LOW DOSE) 16:06: daily. [place] 81 mg EC 37 Medical tablet Branch isosorbide 2020-0 Yes [id number] 30mg Take 1 Univers mononitrate 3-09 tablet by ity of 30 mg 24 hr 00:00: mouth [place] tablet 00 daily. Medical Branch isosorbide 2020-0 Yes [id number] 30mg Take 1 Univers mononitrate 3-09 tablet by ity of 30 mg 24 hr 00:00: mouth [place] tablet 00 daily. Medical Branch isosorbide 2020-0 Yes [id number] 30mg Take 1 Univers mononitrate 3-09 tablet by ity of 30 mg 24 hr 00:00: mouth [place] tablet 00 daily. Medical Branch isosorbide 2020-0 Yes [id number] 30mg Take 1 Univers mononitrate 3-09 tablet by ity of 30 mg 24 hr 00:00: mouth [place] tablet 00 daily. Medical Branch isosorbide 2020-0 Yes [id number] 30mg Take 1 Univers mononitrate 3-09 tablet by ity of 30 mg 24 hr 00:00: mouth [place] tablet 00 daily. Medical Branch isosorbide 2020-0 Yes [id number] 30mg Take 1 Univers mononitrate 3-09 tablet by ity of 30 mg 24 hr 00:00: mouth [place] tablet 00 daily. Medical Branch isosorbide 2020-0 Yes [id number] 30mg Take 1 Univers mononitrate 3-09 tablet by ity of 30 mg 24 hr 00:00: mouth [place] tablet 00 daily. Medical Branch isosorbide 2020-0 Yes [id number] 30mg Take 1 Univers mononitrate 3-09 tablet by ity of 30 mg 24 hr 00:00: mouth [place] tablet 00 daily. Medical Branch isosorbide 2020-0 Yes [id number] 30mg Take 1 Univers mononitrate 3-09 tablet by ity of 30 mg 24 hr 00:00: mouth [place] tablet 00 daily. Medical Branch isosorbide 2020-0 Yes [id number] 30mg Take 1 Univers mononitrate 3-09 tablet by ity of 30 mg 24 hr 00:00: mouth [place] tablet 00 daily. Medical Branch isosorbide 2020-0 Yes [id number] 30mg Take 1 Univers mononitrate 3-09 tablet by ity of 30 mg 24 hr 00:00: mouth [place] tablet 00 daily. Medical Branch isosorbide 2020-0 Yes [id number] 30mg Take 1 Univers mononitrate 3-09 tablet by ity of 30 mg 24 hr 00:00: mouth [place] tablet 00 daily. Medical Branch isosorbide 2020-0 Yes [id number] 30mg Take 1 Univers mononitrate 3-09 tablet by ity of 30 mg 24 hr 00:00: mouth [place] tablet 00 daily. Medical Branch isosorbide 2020-0 Yes [id number] 30mg Take 1 Univers mononitrate 3-09 tablet by ity of 30 mg 24 hr 00:00: mouth [place] tablet 00 daily. Medical Branch isosorbide 2020-0 Yes [id number] 30mg Take 1 Univers mononitrate 3-09 tablet by ity of 30 mg 24 hr 00:00: mouth [place] tablet 00 daily. Medical Branch isosorbide 2020-0 Yes [id number] 30mg Take 1 Univers mononitrate 3-09 tablet by ity of 30 mg 24 hr 00:00: mouth [place] tablet 00 daily. Medical Branch isosorbide 2020-0 Yes [id number] 30mg Take 1 Univers mononitrate 3-09 tablet by ity of 30 mg 24 hr 00:00: mouth [place] tablet 00 daily. Medical Branch isosorbide 2020-0 Yes [id number] 30mg Take 1 Univers mononitrate 3-09 tablet by ity of 30 mg 24 hr 00:00: mouth [place] tablet 00 daily. Medical Branch isosorbide 2020-0 Yes [id number] 30mg Take 1 Univers mononitrate 3-09 tablet by ity of 30 mg 24 hr 00:00: mouth [place] tablet 00 daily. Medical Branch isosorbide 2020-0 Yes [id number] 30mg Take 1 Univers mononitrate 3-09 tablet by ity of 30 mg 24 hr 00:00: mouth [place] tablet 00 daily. Medical Branch isosorbide 2020-0 Yes [id number] 30mg Take 1 Univers mononitrate 3-09 tablet by ity of 30 mg 24 hr 00:00: mouth [place] tablet 00 daily. Medical Branch isosorbide 2020-0 Yes [id number] 30mg Take 1 Univers mononitrate 3-09 tablet by ity of 30 mg 24 hr 00:00: mouth [place] tablet 00 daily. Medical Branch isosorbide 2020-0 Yes [id number] 30mg Take 1 Univers mononitrate 3-09 tablet by ity of 30 mg 24 hr 00:00: mouth [place] tablet 00 daily. Medical Branch isosorbide 2020-0 Yes [id number] 30mg Take 1 Univers mononitrate 3-09 tablet by ity of 30 mg 24 hr 00:00: mouth [place] tablet 00 daily. Medical Branch isosorbide 2020-0 Yes [id number] 30mg Take 1 Univers mononitrate 3-09 tablet by ity of 30 mg 24 hr 00:00: mouth [place] tablet 00 daily. Medical Branch isosorbide 2020-0 Yes [id number] 30mg Take 1 Univers mononitrate 3-09 tablet by ity of 30 mg 24 hr 00:00: mouth [place] tablet 00 daily. Medical Branch isosorbide 2020-0 Yes [id number] 30mg Take 1 Univers mononitrate 3-09 tablet by ity of 30 mg 24 hr 00:00: mouth [place] tablet 00 daily. Medical Branch isosorbide 2020-0 Yes [id number] 30mg Take 1 Univers mononitrate 3-09 tablet by ity of 30 mg 24 hr 00:00: mouth [place] tablet 00 daily. Medical Branch isosorbide 2020-0 Yes [id number] 30mg Take 1 Univers mononitrate 3-09 tablet by ity of 30 mg 24 hr 00:00: mouth [place] tablet 00 daily. Medical Branch isosorbide 2020-0 Yes [id number] 30mg Take 1 Univers mononitrate 3-09 tablet by ity of 30 mg 24 hr 00:00: mouth [place] tablet 00 daily. Medical Branch isosorbide 2020-0 Yes [id number] 30mg Take 1 Univers mononitrate 3-09 tablet by ity of 30 mg 24 hr 00:00: mouth [place] tablet 00 daily. Medical Branch isosorbide 2020-0 Yes [id number] 30mg Take 1 Univers mononitrate 3-09 tablet by ity of 30 mg 24 hr 00:00: mouth [place] tablet 00 daily. Medical Branch isosorbide 2020-0 Yes [id number] 30mg Take 1 Univers mononitrate 3-09 tablet by ity of 30 mg 24 hr 00:00: mouth [place] tablet 00 daily. Medical Branch isosorbide 2020-0 Yes [id number] 30mg Take 1 Univers mononitrate 3-09 tablet by ity of 30 mg 24 hr 00:00: mouth [place] tablet 00 daily. Medical Branch isosorbide 2020-0 Yes [id number] 30mg Take 1 Univers mononitrate 3-09 tablet by ity of 30 mg 24 hr 00:00: mouth [place] tablet 00 daily. Medical Branch isosorbide 2020-0 Yes [id number] 30mg Take 1 Univers mononitrate 3-09 tablet by ity of 30 mg 24 hr 00:00: mouth [place] tablet 00 daily. Medical Branch isosorbide 2020-0 Yes [id number] 30mg Take 1 Univers mononitrate 3-09 tablet by ity of 30 mg 24 hr 00:00: mouth [place] tablet 00 daily. Medical Branch isosorbide 2020-0 Yes [id number] 30mg Take 1 Univers mononitrate 3-09 tablet by ity of 30 mg 24 hr 00:00: mouth [place] tablet 00 daily. Medical Branch isosorbide 2020-0 Yes [id number] 30mg Take 1 Univers mononitrate 3-09 tablet by ity of 30 mg 24 hr 00:00: mouth [place] tablet 00 daily. Medical Branch isosorbide 2020-0 Yes [id number] 30mg Take 1 Univers mononitrate 3-09 tablet by ity of 30 mg 24 hr 00:00: mouth [place] tablet 00 daily. Medical Branch isosorbide 2020-0 Yes [id number] 30mg Take 1 Univers mononitrate 3-09 tablet by ity of 30 mg 24 hr 00:00: mouth [place] tablet 00 daily. [facility] Branch isosorbide 2020-0 Yes [id number] 30mg Take 1 Univers mononitrate 3-09 tablet by ity of 30 mg 24 hr 00:00: mouth [place] tablet 00 daily. Medical Branch isosorbide 2020-0 Yes [id number] 30mg Take 1 Univers mononitrate 3-09 tablet by ity of 30 mg 24 hr 00:00: mouth [place] tablet 00 daily. Medical Branch isosorbide 2020-0 Yes [id number] 30mg Take 1 Univers mononitrate 3-09 tablet by ity of 30 mg 24 hr 00:00: mouth [place] tablet 00 daily. Medical Branch isosorbide 2020-0 Yes [id number] 30mg Take 1 Univers mononitrate 3-09 tablet by ity of 30 mg 24 hr 00:00: mouth [place] tablet 00 daily. Medical Branch isosorbide 2020-0 Yes [id number] 30mg Take 1 Univers mononitrate 3-09 tablet by ity of 30 mg 24 hr 00:00: mouth [place] tablet 00 daily. [facility] Branch isosorbide 2020-0 Yes [id number] 30mg Take 1 Univers mononitrate 3-09 tablet by ity of 30 mg 24 hr 00:00: mouth [place] tablet 00 daily. [facility] Branch isosorbide 2020-0 Yes [id number] 30mg Take 1 Univers mononitrate 3-09 tablet by ity of 30 mg 24 hr 00:00: mouth [place] tablet 00 daily. Medical Branch isosorbide 2020-0 Yes [id number] 30mg Take 1 Univers mononitrate 3-09 tablet by ity of 30 mg 24 hr 00:00: mouth [place] tablet 00 daily. [facility] Branch isosorbide 2020-0 Yes [id number] 30mg Take 1 Univers mononitrate 3-09 tablet by ity of 30 mg 24 hr 00:00: mouth [place] tablet 00 daily. [facility] Branch isosorbide 2020-0 2021- No [id number] 30mg Take 1 Univers mononitrate 3-09 -08 tablet by it y of 30 mg 24 hr 00:00: 00:00 [place] tablet 00 :00 daily. Medical Branch insulin NPH 2018-05 Yes [id number] Inject 80 Univers and regular 2-13 units AM, ity of human 70-30 00:00: 90 units [place] (NOVOLIN 00 PM Medical 70/30 U-100 Branch INSULIN) 100 unit/mL (70-30) injection insulin NPH 2018-05 Yes [id number] Inject 80 Univers and regular 2-13 units AM, ity of human 70-30 00:00: 90 units [place] (NOVOLIN 00 PM Medical 70/30 U-100 Branch INSULIN) 100 unit/mL (70-30) injection insulin NPH 2018-05 Yes [id number] Inject 80 Univers and regular 2-13 units AM, ity of human 7030 00:00: 90 units [place] (NOVOLIN 00 PM Medical 70/30 U-100 Branch INSULIN) 100 unit/mL (70-30) injection insulin NPH 2018-05 Yes [id number] Inject 80 Univers and regular 2-13 units AM, ity of human 00:00: 90 units [place] (NOVOLIN 00 PM Medical 70/30 U-100 Branch INSULIN) 100 unit/mL (70-30) injection insulin NPH 2018-05 Yes [id number] Inject 80 Univers and regular 2-13 units AM, ity of human 30 00:00: 90 units [place] (NOVOLIN 00 PM Medical 70/30 U-100 Branch INSULIN) 100 unit/mL (70-30) injection insulin NPH 2018-05 Yes [id number] Inject 80 Univers and regular 2-13 units AM, ity of human 00:00: 90 units [place] (NOVOLIN 00 PM Medical 70/30 U-100 Branch INSULIN) 100 unit/mL (70-30) injection insulin NPH 2018-05 Yes [id number] Inject 80 Univers and regular 2-13 units AM, ity of human 00:00: 90 units [place] (NOVOLIN 00 PM Medical 70/30 U-100 Branch INSULIN) 100 unit/mL (70-30) injection insulin NPH 2018-05 2020- No [id number] Inject 80 Univers and regular 2-13 03-20 units AM, it y of human 00:00: 00:00 90 units [place] (NOVOLIN 00 :00 PM Medical 70/30 U-100 Branch INSULIN) 100 unit/mL (70-30) injection FUROSEMIDE 2018-05 Yes [id number] TAKE 1 U nivers 20 mg 2-11 TABLET BY ity of tablet 00:00: MOUTH ONCE DAILY Medical Branch FUROSEMIDE 2018-05 Yes [id number] TAKE 1 U nivers 20 mg 2-11 TABLET BY ity of tablet 00:00: MOUTH ONCE DAILY Medical Branch FUROSEMIDE 2018-05 Yes [id number] TAKE 1 U nivers 20 mg 2-11 TABLET BY ity of tablet 00:00: MOUTH ONCE [place] DAILY Medical Branch FUROSEMIDE 2019- Yes [id number] TAKE 1 U nivers 20 mg 2-11 TABLET BY ity of tablet 00:00: MOUTH ONCE DAILY Medical Branch FUROSEMIDE 2019- Yes [id number] TAKE 1 U nivers 20 mg 2-11 TABLET BY ity of tablet 00:00: MOUTH ONCE Medical Branch FUROSEMIDE 2019- Yes [id number] TAKE 1 U nivers 20 mg 2-11 TABLET BY ity of tablet 00:00: MOUTH ONCE DAILY Medical Branch FUROSEMIDE 2019- Yes [id number] TAKE 1 U nivers 20 mg 2-11 TABLET BY ity of tablet 00:00: MOUTH ONCE DAILY Medical Branch FUROSEMIDE 2019- Yes [id number] TAKE 1 U nivers 20 mg 2-11 TABLET BY ity of tablet 00:00: MOUTH ONCE DAILY Medical Branch FUROSEMIDE 2019- Yes [id number] TAKE 1 U nivers 20 mg 2-11 TABLET BY ity of tablet 00:00: MOUTH ONCE DAILY Medical Branch FUROSEMIDE 2019- Yes [id number] TAKE 1 U nivers 20 mg 2-11 TABLET BY ity of tablet 00:00: MOUTH ONCE DAILY Medical Branch FUROSEMIDE 2019- Yes [id number] TAKE 1 U nivers 20 mg 2-11 TABLET BY ity of tablet 00:00: MOUTH ONCE [place] DAILY Medical Branch FUROSEMIDE 2019- Yes [id number] TAKE 1 U nivers 20 mg 2-11 TABLET BY ity of tablet 00:00: MOUTH ONCE [place] DAILY Medical Branch FUROSEMIDE 2019- Yes [id number] TAKE 1 U nivers 20 mg 2-11 TABLET BY ity of tablet 00:00: MOUTH ONCE [place] DAILY Medical Branch FUROSEMIDE 2019- Yes [id number] TAKE 1 U nivers 20 mg 2-11 TABLET BY ity of tablet 00:00: MOUTH ONCE [place] DAILY Medical Branch FUROSEMIDE 2019- Yes [id number] TAKE 1 U nivers 20 mg 2-11 TABLET BY ity of tablet 00:00: MOUTH ONCE DAILY Medical Branch FUROSEMIDE 2019- Yes [id number] TAKE 1 U nivers 20 mg 2-11 TABLET BY ity of tablet 00:00: MOUTH ONCE [place] DAILY Medical Branch FUROSEMIDE 2019- Yes [id number] TAKE 1 U nivers 20 mg 2-11 TABLET BY ity of tablet 00:00: MOUTH ONCE [place] DAILY Medical Branch FUROSEMIDE 2019- Yes [id number] TAKE 1 U nivers 20 mg 2-11 TABLET BY ity of tablet 00:00: MOUTH ONCE [place] DAILY Medical Branch FUROSEMIDE 2019- Yes [id number] TAKE 1 U nivers 20 mg 2-11 TABLET BY ity of tablet 00:00: MOUTH ONCE [place] [address] DAILY Medical Branch FUROSEMIDE 2019- Yes [id number] TAKE 1 U nivers 20 mg 2-11 TABLET BY ity of tablet 00:00: MOUTH ONCE [place] DAILY Medical Branch FUROSEMIDE 2019- Yes [id number] TAKE 1 U nivers 20 mg 2-11 TABLET BY ity of tablet 00:00: MOUTH ONCE [place] DAILY Medical Branch FUROSEMIDE 2018- Yes [id number] TAKE 1 U nivers 20 mg 2-11 TABLET BY ity of tablet 00:00: MOUTH ONCE [place] DAILY Medical Branch FUROSEMIDE 2019- Yes [id number] TAKE 1 U nivers 20 mg 2-11 TABLET BY ity of tablet 00:00: MOUTH ONCE [place] [address] DAILY Medical Branch FUROSEMIDE 2019- Yes [id number] TAKE 1 U nivers 20 mg 2-11 TABLET BY ity of tablet 00:00: MOUTH ONCE [place] DAILY Medical Branch FUROSEMIDE 2019- Yes [id number] TAKE 1 U nivers 20 mg 2-11 TABLET BY ity of tablet 00:00: MOUTH ONCE [place] DAILY Medical Branch FUROSEMIDE 2019- Yes [id number] TAKE 1 U nivers 20 mg 2-11 TABLET BY ity of tablet 00:00: MOUTH ONCE [place] [address] DAILY Medical Branch FUROSEMIDE 2019- Yes [id number] TAKE 1 U nivers 20 mg 2-11 TABLET BY ity of tablet 00:00: MOUTH ONCE [place] [address] DAILY Medical Branch FUROSEMIDE 2019- 2020- No [id number] TAKE 1 Univers 20 mg 2-11 08-18 TABLET BY ity of tablet 00:00: 00:00 MOUTH ONCE [place] 00 :00 DAILY Medical Branch FUROSEMIDE 2019- 2020- No [id number] TAKE 1 Univers 20 mg 2-11 08-18 TABLET BY ity of tablet 00:00: 00:00 MOUTH ONCE [place] 00 :[place] DAILY Medical Branch FUROSEMIDE 2019- 2020- No [id number] TAKE 1 Univers 20 mg 2-11 08-18 TABLET BY ity of tablet 00:00: 00:00 MOUTH ONCE [place] 00 :00 DAILY Medical Branch pantoprazol 2019- Yes [id number] 40mg Take 1 Univers e 40 mg EC 0-29 tablet by ity of tablet 00:00: mouth [place] 00 daily. Medical Branch potassium 2018-05 Yes [id number] 10meq Take 1 U nivers chloride 10 0-29 tablet by ity of mEq CR 00:00: mouth [place] tablet 00 daily. Medical Branch albuterol 2018-05 Yes [id number] 2{puff} Inhale 2 Univers 90 0-29 Puffs ity of mcg/actuati 00:00: every 6 [place] on inhaler 00 (six) Medical hours as Branch needed for Wheezing or Shortness of Breath. nitroglycer 2018-05 Yes [id number] 1 tab SL Univers in 0.4 mg 0-29 q5min up ity of sublingual 00:00: to 3 doses [place] tablet 00 PRN chest Medical pain, then Branch activate 911. DULoxetine 2018-05 Yes [id number] 30mg Take 1 Univers 30 mg 0-29 capsule by ity of capsule 00:00: mouth [place] 00 daily. Medical Branch pantoprazol 2018-05 Yes [id number] 40mg Take 1 Univers e 40 mg EC 0-29 tablet by ity of tablet 00:00: mouth [place] 00 daily. Medical Branch potassium 2018-05 Yes [id number] 10meq Take 1 U nivers chloride 10 0-29 tablet by ity of mEq CR 00:00: mouth [place] tablet 00 daily. Medical Branch albuterol 2018-05 Yes [id number] 2{puff} Inhale 2 Univers 90 0-29 Puffs ity of mcg/actuati 00:00: every 6 [place] on inhaler 00 (six) Medical hours as Branch needed for Wheezing or Shortness of Breath. nitroglycer 2018-05 Yes [id number] 1 tab SL Univers in 0.4 mg 0-29 q5min up ity of sublingual 00:00: to 3 doses [place] tablet 00 PRN chest Medical pain, then Branch activate 911. DULoxetine 2018-05 Yes [id number] 30mg Take 1 Univers 30 mg 0-29 capsule by ity of capsule 00:00: mouth [place] 00 daily. Medical Branch pantoprazol 2018-05 Yes [id number] 40mg Take 1 Univers e 40 mg EC 0-29 tablet by ity of tablet 00:00: mouth [place] 00 daily. Medical Branch potassium 2018-05 Yes [id number] 10meq Take 1 U nivers chloride 10 0-29 tablet by ity of mEq CR 00:00: mouth [place] tablet 00 daily. Medical Branch albuterol 2018-05 Yes [id number] 2{puff} Inhale 2 Univers 90 0-29 Puffs ity of mcg/actuati 00:00: every 6 [place] inhaler 00 (six) Medical hours as Branch needed for Wheezing or Shortness of Breath. nitroglycer 2018-05 Yes [id number] 1 tab SL Univers in 0.4 mg 0-29 q5min up ity of sublingual 00:00: to 3 doses [place] tablet 00 PRN chest Medical pain, then Branch activate 911. DULoxetine 2018-05 Yes [id number] 30mg Take 1 Univers 30 mg 0-29 capsule by ity of capsule 00:00: mouth [place] 00 daily. Medical Branch pantoprazol 2018-05 Yes [id number] 40mg Take 1 Univers e 40 mg EC 0-29 tablet by ity of tablet 00:00: mouth [place] 00 daily. Medical Branch potassium 2018-05 Yes [id number] 10meq Take 1 U nivers chloride 10 0-29 tablet by ity of mEq CR 00:00: mouth [place] tablet 00 daily. Medical Branch albuterol 2018-05 Yes [id number] 2{puff} Inhale 2 Univers 90 0-29 Puffs ity of mcg/actuati 00:00: every 6 [place] inhaler 00 (six) Medical hours as Branch needed for Wheezing or Shortness of Breath. nitroglycer 2018-05 Yes [id number] 1 tab SL Univers in 0.4 mg 0-29 q5min up ity of sublingual 00:00: to 3 doses [place] tablet 00 PRN chest Medical pain, then Branch activate 911. DULoxetine 2018-05 Yes [id number] 30mg Take 1 Univers 30 mg 0-29 capsule by ity of capsule 00:00: mouth [place] 00 daily. Medical Branch pantoprazol 2018-05 Yes [id number] 40mg Take 1 Univers e 40 mg EC 0-29 tablet by ity of tablet 00:00: mouth [place] 00 daily. Medical Branch potassium 2018-05 Yes [id number] 10meq Take 1 U nivers chloride 10 0-29 tablet by ity of mEq CR 00:00: mouth [place] tablet 00 daily. Medical Branch albuterol 2018-05 Yes [id number] 2{puff} Inhale 2 Univers 90 0-29 Puffs ity of mcg/actuati 00:00: every 6 [place] inhaler 00 (six) Medical hours as Branch needed for Wheezing or Shortness of Breath. nitroglycer 2018-05 Yes [id number] 1 tab [facility] in 0.4 mg 0-29 q5min up [facility] of sublingual 00:00: to 3 doses [place] tablet 00 PRN chest Medical pain, then Branch activate 911. DULoxetine 2018-05 Yes [id number] 30mg Take 1 [facility] 30 mg 0-29 capsule by [facility] of capsule 00:00: mouth [place] 00 daily. [facility] pantoprazol 2018-05 Yes [id number] 40mg Take 1 [facility] e 40 mg EC 0-29 tablet by [facility] of tablet 00:00: mouth [place] 00 daily. [facility] potassium 2018-05 Yes [id number] 10meq Take 1 [facility] chloride 10 0-29 tablet by [facility] of mEq CR 00:00: mouth [place] tablet 00 daily. [facility] albuterol 2018-05 Yes [id number] 2{puff} Inhale 2 [facility] 90 0-29 Puffs [facility] of mcg/actuati 00:00: every 6 [place] [facility] on inhaler 00 (six) Medical hours as Branch needed for Wheezing or Shortness of Breath. nitroglycer 2018-05 Yes [id number] 1 tab [facility] in 0.4 mg 0-29 q5min up [facility] of sublingual 00:00: to 3 doses [place] tablet 00 PRN chest Medical pain, then Branch activate 911. DULoxetine 2018-05 Yes [id number] 30mg Take 1 [facility] 30 mg 0-29 capsule by [facility] of capsule 00:00: mouth [place] 00 daily. [facility] pantoprazol 2018-05 Yes [id number] 40mg Take 1 [facility] e 40 mg EC 0-29 tablet by [facility] of tablet 00:00: mouth [place] 00 daily. [facility] potassium 2018-05 Yes [id number] 10meq Take 1 [facility] chloride 10 0-29 tablet by [facility] of mEq CR 00:00: mouth [place] tablet 00 daily. [facility] albuterol 2018-05 Yes [id number] 2{puff} Inhale 2 [facility] 90 0-29 Puffs [facility] of mcg/actuati 00:00: every 6 [place] inhaler 00 (six) Medical hours as Branch needed for Wheezing or Shortness of Breath. nitroglycer 2018-05 Yes [id number] 1 tab [facility] in 0.4 mg 0-29 q5min up [facility] of sublingual 00:00: to 3 doses [place] tablet 00 PRN chest Medical pain, then Branch activate 911. DULoxetine 2018-05 Yes [id number] 30mg Take 1 [facility] 30 mg 0-29 capsule by [facility] of capsule 00:00: mouth [place] 00 daily. [facility] pantoprazol 2018-05 Yes [id number] 40mg Take 1 [facility] e 40 mg EC 0-29 tablet by [facility] of tablet 00:00: mouth [place] 00 daily. [facility] potassium 2018-05 Yes [id number] 10meq Take 1 [facility] chloride 10 0-29 tablet by [facility] of mEq CR 00:00: mouth [place] tablet 00 daily. [facility] albuterol 2018-05 Yes [id number] 2{puff} Inhale 2 [facility] 90 0-29 Puffs [facility] of mcg/actuati 00:00: every 6 [place] inhaler 00 (six) Medical hours as Branch needed for Wheezing or Shortness of Breath. nitroglycer 2018-05 Yes [id number] 1 tab [facility] in 0.4 mg 0-29 q5min up [facility] of sublingual 00:00: to 3 doses [place] tablet 00 PRN chest Medical pain, then Branch activate 911. DULoxetine 2018-05 Yes [id number] 30mg Take 1 [facility] 30 mg 0-29 capsule by [facility] of capsule 00:00: mouth [place] 00 daily. [facility] pantoprazol 2018-05 Yes [id number] 40mg Take 1 [facility] e 40 mg EC 0-29 tablet by [facility] of tablet 00:00: mouth [place] 00 daily. [facility] potassium 2018-05 Yes [id number] 10meq Take 1 [facility] chloride 10 0-29 tablet by [facility] of mEq CR 00:00: mouth [place] tablet 00 daily. [facility] albuterol 2018-05 Yes [id number] 2{puff} Inhale 2 [facility] 90 0-29 Puffs [facility] of mcg/actuati 00:00: every 6 [place] inhaler 00 (six) Medical hours as Branch needed for Wheezing or Shortness of Breath. nitroglycer 2018-05 Yes [id number] 1 tab [facility] in 0.4 mg 0-29 q5min up [facility] of sublingual 00:00: to 3 doses [place] tablet 00 PRN chest Medical pain, then Branch activate 911. DULoxetine 2018-05 Yes [id number] 30mg Take 1 [facility] 30 mg 0-29 capsule by [facility] of capsule 00:00: mouth [place] 00 daily. [facility] pantoprazol 2018-05 Yes [id number] 40mg Take 1 [facility] e 40 mg EC 0-29 tablet by [facility] of tablet 00:00: mouth [place] 00 daily. [facility] potassium 2018-05 Yes [id number] 10meq Take 1 [facility] chloride 10 0-29 tablet by [facility] of mEq CR 00:00: mouth [place] tablet 00 daily. [facility] albuterol 2018-05 Yes [id number] 2{puff} Inhale 2 [facility] 90 0-29 Puffs [facility] of mcg/actuati 00:00: every 6 [place] inhaler 00 (six) Medical hours as Branch needed for Wheezing or Shortness of Breath. nitroglycer 2018-05 Yes [id number] 1 tab [facility] in 0.4 mg 0-29 q5min up [facility] of sublingual 00:00: to 3 doses [place] tablet 00 PRN chest Medical pain, then Branch activate 911. DULoxetine 2018-05 Yes [id number] 30mg Take 1 [facility] 30 mg 0-29 capsule by [facility] of capsule 00:00: mouth [place] 00 daily. [facility] pantoprazol 2018-05 Yes [id number] 40mg Take 1 [facility] e 40 mg EC 0-29 tablet by [facility] of tablet 00:00: mouth [place] 00 daily. [facility] potassium 2018-05 Yes [id number] 10meq Take 1 [facility] chloride 10 0-29 tablet by [facility] of mEq CR 00:00: mouth [place] tablet 00 daily. [facility] albuterol 2018-05 Yes [id number] 2{puff} Inhale 2 [facility] 90 0-29 Puffs [facility] of mcg/actuati 00:00: every 6 [place] inhaler 00 (six) Medical hours as Branch needed for Wheezing or Shortness of Breath. nitroglycer 2018-05 Yes [id number] 1 tab [facility] in 0.4 mg 0-29 q5min up [facility] of sublingual 00:00: to 3 doses [place] tablet 00 PRN chest Medical pain, then Branch activate 911. DULoxetine 2018-05 Yes [id number] 30mg Take 1 [facility] 30 mg 0-29 capsule by [facility] of capsule 00:00: mouth [place] 00 daily. [facility] pantoprazol 2018-05 Yes [id number] 40mg Take 1 [facility] e 40 mg EC 0-29 tablet by [facility] of tablet 00:00: mouth [place] 00 daily. [facility] potassium 2018-05 Yes [id number] 10meq Take 1 [facility] chloride 10 0-29 tablet by [facility] of mEq CR 00:00: mouth [place] tablet 00 daily. [facility] albuterol 2018-05 Yes [id number] 2{puff} Inhale 2 [facility] 90 0-29 Puffs [facility] of mcg/actuati 00:00: every 6 [place] inhaler 00 (six) Medical hours as Branch needed for Wheezing or Shortness of Breath. nitroglycer 2018-05 Yes [id number] 1 tab [facility] in 0.4 mg 0-29 q5min up [facility] of sublingual 00:00: to 3 doses [place] tablet 00 PRN chest Medical pain, then Branch activate 911. DULoxetine 2018-05 Yes [id number] 30mg Take 1 [facility] 30 mg 0-29 capsule by [facility] of capsule 00:00: mouth [place] 00 daily. [facility] pantoprazol 2018-05 Yes [id number] 40mg Take 1 [facility] e 40 mg EC 0-29 tablet by [facility] of tablet 00:00: mouth [place] 00 daily. [facility] potassium 2018-05 Yes [id number] 10meq Take 1 [facility] chloride 10 0-29 tablet by [facility] of mEq CR 00:00: mouth [place] tablet 00 daily. [facility] albuterol 2018-05 Yes [id number] 2{puff} Inhale 2 [facility] 90 0-29 Puffs [facility] of mcg/actuati 00:00: every 6 [place] inhaler 00 (six) Medical hours as Branch needed for Wheezing or Shortness of Breath. nitroglycer 2018-05 Yes [id number] 1 tab [facility] in 0.4 mg 0-29 q5min up [facility] of sublingual 00:00: to 3 doses [place] tablet 00 PRN chest Medical pain, then Branch activate 911. DULoxetine 2018-05 Yes [id number] 30mg Take 1 [facility] 30 mg 0-29 capsule by [facility] of capsule 00:00: mouth [place] 00 daily. [facility] albuterol 2018-05 Yes [id number] 2{puff} Inhale 2 [facility] 90 0-29 Puffs [facility] of mcg/actuati 00:00: every 6 [place] inhaler 00 (six) Medical hours as Branch needed for Wheezing or Shortness of Breath. nitroglycer 2018-05 Yes [id number] 1 tab [facility] in 0.4 mg 0-29 q5min up [facility] of sublingual 00:00: to 3 doses [place] tablet 00 PRN chest Medical pain, then Branch activate 911. DULoxetine 2018-05 Yes [id number] 30mg Take 1 [facility] 30 mg 0-29 capsule by [facility] of capsule 00:00: mouth [place] 00 daily. [facility] albuterol 2018-05 Yes [id number] 2{puff} Inhale 2 [facility] 90 0-29 Puffs [facility] of mcg/actuati 00:00: every 6 [place] inhaler 00 (six) Medical hours as Branch needed for Wheezing or Shortness of Breath. nitroglycer 2018-05 Yes [id number] 1 tab [facility] in 0.4 mg 0-29 q5min up [facility] of sublingual 00:00: to 3 doses [place] tablet 00 PRN chest Medical pain, then Branch activate 911. albuterol 2018-05 Yes [id number] 2{puff} Inhale 2 [facility] 90 0-29 Puffs [facility] of mcg/actuati 00:00: every 6 [place] inhaler 00 (six) Medical hours as Branch needed for Wheezing or Shortness of Breath. nitroglycer 2018-05 Yes [id number] 1 tab [facility] in 0.4 mg 0-29 q5min up [facility] of sublingual 00:00: to 3 doses [place] tablet 00 PRN chest Medical pain, then Branch activate 911. albuterol 2018-05 Yes [id number] 2{puff} Inhale 2 [facility] 90 0-29 Puffs [facility] of mcg/actuati 00:00: every 6 [place] inhaler 00 (six) Medical hours as Branch needed for Wheezing or Shortness of Breath. nitroglycer 2018-05 Yes [id number] 1 tab [facility] in 0.4 mg 0-29 q5min up [facility] of sublingual 00:00: to 3 doses [place] tablet 00 PRN chest Medical pain, then Branch activate 911. albuterol 2018-05 Yes [id number] 2{puff} Inhale 2 [facility] 90 0-29 Puffs [facility] of mcg/actuati 00:00: every 6 [place] inhaler 00 (six) Medical hours as Branch needed for Wheezing or Shortness of Breath. nitroglycer 2018-05 Yes [id number] 1 tab [facility] in 0.4 mg 0-29 q5min up [facility] of sublingual 00:00: to 3 doses [place] tablet 00 PRN chest Medical pain, then Branch activate 911. albuterol 2018-05 Yes [id number] 2{puff} Inhale 2 [facility] 90 0-29 Puffs [facility] of mcg/actuati 00:00: every 6 [place] inhaler 00 (six) Medical hours as Branch needed for Wheezing or Shortness of Breath. nitroglycer 2018-05 Yes [id number] 1 tab [facility] in 0.4 mg 0-29 q5min up [facility] of sublingual 00:00: to 3 doses [place] tablet 00 PRN chest Medical pain, then Branch activate 911. albuterol 2018-05 Yes [id number] 2{puff} Inhale 2 [facility] 90 0-29 Puffs [facility] of mcg/actuati 00:00: every 6 [place] inhaler 00 (six) Medical hours as Branch needed for Wheezing or Shortness of Breath. nitroglycer 2018-05 Yes [id number] 1 tab [facility] in 0.4 mg 0-29 q5min up [facility] of sublingual 00:00: to 3 doses [place] tablet 00 PRN chest Medical pain, then Branch activate 911. albuterol 2018-05 Yes [id number] 2{puff} Inhale 2 [facility] 90 0-29 Puffs [facility] of mcg/actuati 00:00: every 6 [place] on inhaler 00 (six) Medical hours as Branch needed for Wheezing or Shortness of Breath. nitroglycer 2018-05 Yes [id number] 1 tab [facility] in 0.4 mg 0-29 q5min up [facility] of sublingual 00:00: to 3 doses [place] tablet 00 PRN chest Medical pain, then Branch activate 911. albuterol 2018-05 Yes [id number] 2{puff} Inhale 2 [facility] 90 0-29 Puffs [facility] of mcg/actuati 00:00: every 6 [place] on inhaler 00 (six) Medical hours as Branch needed for Wheezing or Shortness of Breath. nitroglycer 2018-05 Yes [id number] 1 tab [facility] in 0.4 mg 0-29 q5min up [facility] of sublingual 00:00: to 3 doses [place] tablet 00 PRN chest Medical pain, then Branch activate 911. albuterol 2018-05 Yes [id number] 2{puff} Inhale 2 [facility] 90 0-29 Puffs [facility] of mcg/actuati 00:00: every 6 [place] on inhaler 00 (six) Medical hours as Branch needed for Wheezing or Shortness of Breath. nitroglycer 2018-05 Yes [id number] 1 tab [facility] in 0.4 mg 0-29 q5min up [facility] of sublingual 00:00: to 3 doses [place] tablet 00 PRN chest Medical pain, then Branch activate 911. albuterol 2018-05 Yes [id number] 2{puff} Inhale 2 [facility] 90 0-29 Puffs [facility] of mcg/actuati 00:00: every 6 [place] [facility] on inhaler 00 (six) Medical hours as Branch needed for Wheezing or Shortness of Breath. nitroglycer 2018-05 Yes [id number] 1 tab [facility] in 0.4 mg 0-29 q5min up [facility] of sublingual 00:00: to 3 doses [place] tablet 00 PRN chest Medical pain, then Branch activate 911. albuterol 2018-05 Yes [id number] 2{puff} Inhale 2 [facility] 90 0-29 Puffs [facility] of mcg/actuati 00:00: every 6 [place] on inhaler 00 (six) Medical hours as Branch needed for Wheezing or Shortness of Breath. nitroglycer 2018-05 Yes [id number] 1 tab [facility] in 0.4 mg 0-29 q5min up [facility] of sublingual 00:00: to 3 doses [place] tablet 00 PRN chest Medical pain, then Branch activate 911. albuterol 2018-05 Yes [id number] 2{puff} Inhale 2 [facility] 90 0-29 Puffs [facility] of mcg/actuati 00:00: every 6 [place] [facility] on inhaler 00 (six) Medical hours as Branch needed for Wheezing or Shortness of Breath. nitroglycer 2018-05 Yes [id number] 1 tab [facility] in 0.4 mg 0-29 q5min up [facility] of sublingual 00:00: to 3 doses [place] tablet 00 PRN chest Medical pain, then Branch activate 911. albuterol 2018-05 Yes [id number] 2{puff} Inhale 2 [facility] 90 0-29 Puffs [facility] of mcg/actuati 00:00: every 6 [place] on inhaler 00 (six) Medical hours as Branch needed for Wheezing or Shortness of Breath. nitroglycer 2018-05 Yes [id number] 1 tab [facility] in 0.4 mg 0-29 q5min up [facility] of sublingual 00:00: to 3 doses [place] tablet 00 PRN chest Medical pain, then Branch activate 911. albuterol 2018-05 Yes [id number] 2{puff} Inhale 2 [facility] 90 0-29 Puffs [facility] of mcg/actuati 00:00: every 6 [place] on inhaler 00 (six) Medical hours as Branch needed for Wheezing or Shortness of Breath. nitroglycer 2018-05 Yes [id number] 1 tab [facility] in 0.4 mg 0-29 q5min up [facility] of sublingual 00:00: to 3 doses [place] tablet 00 PRN chest Medical pain, then Branch activate 911. albuterol 2018-05 Yes [id number] 2{puff} Inhale 2 [facility] 90 0-29 Puffs [facility] of mcg/actuati 00:00: every 6 [place] on inhaler 00 (six) Medical hours as Branch needed for Wheezing or Shortness of Breath. nitroglycer 2018-05 Yes [id number] 1 tab [facility] in 0.4 mg 0-29 q5min up [facility] of sublingual 00:00: to 3 doses [place] tablet 00 PRN chest Medical pain, then Branch activate 911. albuterol 2018-05 Yes [id number] 2{puff} Inhale 2 [facility] 90 0-29 Puffs [facility] of mcg/actuati 00:00: every 6 [place] on inhaler 00 (six) Medical hours as Branch needed for Wheezing or Shortness of Breath. nitroglycer 2018-05 Yes [id number] 1 tab [facility] in 0.4 mg 0-29 q5min up [facility] of sublingual 00:00: to 3 doses [place] tablet 00 PRN chest Medical pain, then Branch activate 911. albuterol 2018-05 Yes [id number] 2{puff} Inhale 2 [facility] 90 0-29 Puffs [facility] of mcg/actuati 00:00: every 6 [place] on inhaler 00 (six) Medical hours as Branch needed for Wheezing or Shortness of Breath. nitroglycer 2018-05 Yes [id number] 1 tab [facility] in 0.4 mg 0-29 q5min up [facility] of sublingual 00:00: to 3 doses [place] tablet 00 PRN chest Medical pain, then Branch activate 911. albuterol 2018-05 Yes [id number] 2{puff} Inhale 2 [facility] 90 0-29 Puffs [facility] of mcg/actuati 00:00: every 6 [place] on inhaler 00 (six) Medical hours as Branch needed for Wheezing or Shortness of Breath. nitroglycer 2018-05 Yes [id number] 1 tab [facility] in 0.4 mg 0-29 q5min up it[facility] of sublingual 00:00: to 3 doses [place] tablet 00 PRN chest Medical pain, then Branch activate 911. albuterol 2018-05 Yes [id number] 2{puff} Inhale 2 [facility] 90 0-29 Puffs [facility] of mcg/actuati 00:00: every 6 [place] on inhaler 00 (six) Medical hours as Branch needed for Wheezing or Shortness of Breath. nitroglycer 2018-05 Yes [id number] 1 tab [facility] in 0.4 mg 0-29 q5min up ity of sublingual 00:00: to 3 doses [place] tablet 00 PRN chest Medical pain, then Branch activate 911. albuterol 2018-05 Yes [id number] 2{puff} Inhale 2 [facility] 90 0-29 Puffs [facility] of mcg/actuati 00:00: every 6 [place] on inhaler 00 (six) Medical hours as Branch needed for Wheezing or Shortness of Breath. nitroglycer 2018-05 Yes [id number] 1 tab [facility] in 0.4 mg 0-29 q5min up ity of sublingual 00:00: to 3 doses [place] tablet 00 PRN chest Medical pain, then Branch activate 911. albuterol 2018-05 Yes [id number] 2{puff} Inhale 2 [facility] 90 0-29 Puffs [facility] of mcg/actuati 00:00: every 6 [place] [facility] on inhaler 00 (six) Medical hours as Branch needed for Wheezing or Shortness of Breath. nitroglycer 2018-05 Yes [id number] 1 tab [facility] in 0.4 mg 0-29 q5min up ity of sublingual 00:00: to 3 doses [place] tablet 00 PRN chest Medical pain, then Branch activate 911. albuterol 2018-05 Yes [id number] 2{puff} Inhale 2 [facility] 90 0-29 Puffs [facility] of mcg/actuati 00:00: every 6 [place] on inhaler 00 (six) Medical hours as Branch needed for Wheezing or Shortness of Breath. nitroglycer 2018-05 Yes [id number] 1 tab [facility] in 0.4 mg 0-29 q5min up [facility] of sublingual 00:00: to 3 doses [place] tablet 00 PRN chest Medical pain, then Branch activate 911. albuterol 2018-05 Yes [id number] 2{puff} Inhale 2 [facility] 90 0-29 Puffs it[facility] of mcg/actuati 00:00: every 6 [place] [facility] on inhaler 00 (six) Medical hours as Branch needed for Wheezing or Shortness of Breath. nitroglycer 2018-05 Yes [id number] 1 tab [facility] in 0.4 mg 0-29 q5min up ity of sublingual 00:00: to 3 doses [place] tablet 00 PRN chest Medical pain, then Branch activate 911. albuterol 2018-05 Yes [id number] 2{puff} Inhale 2 [facility] 90 0-29 Puffs [facility] of mcg/actuati 00:00: every 6 [place] inhaler 00 (six) Medical hours as Branch needed for Wheezing or Shortness of Breath. nitroglycer 2018-05 Yes [id number] 1 tab [facility] in 0.4 mg 0-29 q5min up ity of sublingual 00:00: to 3 doses [place] tablet 00 PRN chest Medical pain, then Branch activate 911. nitroglycer 2018-05 Yes [id number] 1 tab [facility] in 0.4 mg 0-29 q5min up ity of sublingual 00:00: to 3 doses [place] tablet 00 PRN chest Medical pain, then Branch activate 911. nitroglycer 2018-05 Yes [id number] 1 tab [facility] in 0.4 mg 0-29 q5min up ity of sublingual 00:00: to 3 doses [place] tablet 00 PRN chest Medical pain, then Branch activate 911. nitroglycer 2018-05 Yes [id number] 1 tab [facility] in 0.4 mg 0-29 q5min up ity of sublingual 00:00: to 3 doses [place] tablet 00 PRN chest Medical pain, then Branch activate 911. nitroglycer 2018-05 Yes [id number] 1 tab [facility] in 0.4 mg 0-29 q5min up ity of sublingual 00:00: to 3 doses [place] tablet 00 PRN chest Medical pain, then Branch activate 911. nitroglycer 2018-05 Yes [id number] 1 tab [facility] in 0.4 mg 0-29 q5min up ity of sublingual 00:00: to 3 doses [place] tablet 00 PRN chest Medical pain, then Branch activate 911. nitroglycer 2018-05 Yes [id number] 1 tab [facility] in 0.4 mg 0-29 q5min up ity of sublingual 00:00: to 3 doses [place] tablet 00 PRN chest Medical pain, then Branch activate 911. nitroglycer 2018-05 Yes [id number] 1 tab [facility] in 0.4 mg 0-29 q5min up ity of sublingual 00:00: to 3 doses [place] tablet 00 PRN chest Medical pain, then Branch activate 911. nitroglycer 2018-05 Yes [id number] 1 tab [facility] in 0.4 mg 0-29 q5min up ity of sublingual 00:00: to 3 doses [place] tablet 00 PRN chest Medical pain, then Branch activate 911. nitroglycer 2018-05 Yes [id number] 1 tab [facility] in 0.4 mg 0-29 q5min up ity of sublingual 00:00: to 3 doses [place] tablet 00 PRN chest Medical pain, then Branch activate 911. nitroglycer 2018-05 Yes [id number] 1 tab [facility] in 0.4 mg 0-29 q5min up ity of sublingual 00:00: to 3 doses [place] tablet 00 PRN chest Medical pain, then Branch activate 911. nitroglycer 2018-05 Yes [id number] 1 tab [facility] in 0.4 mg 0-29 q5min up ity of sublingual 00:00: to 3 doses [place] tablet 00 PRN chest Medical pain, then Branch activate 911. nitroglycer 2018-05 Yes [id number] 1 tab [facility] in 0.4 mg 0-29 q5min up ity of sublingual 00:00: to 3 doses [place] tablet 00 PRN chest Medical pain, then Branch activate 911. nitroglycer 2018-05 Yes [id number] 1 tab [facility] in 0.4 mg 0-29 q5min up ity of sublingual 00:00: to 3 doses [place] tablet 00 PRN chest Medical pain, then Branch activate 911. nitroglycer 2018-05 Yes [id number] 1 tab [facility] in 0.4 mg 0-29 q5min up ity of sublingual 00:00: to 3 doses [place] tablet 00 PRN chest Medical pain, then Branch activate 911. nitroglycer 2018-05 Yes [id number] 1 tab [facility] in 0.4 mg 0-29 q5min up ity of sublingual 00:00: to 3 doses [place] tablet 00 PRN chest Medical pain, then Branch activate 911. nitroglycer 2018-05 Yes [id number] 1 tab [facility] in 0.4 mg 0-29 q5min up ity of sublingual 00:00: to 3 doses [place] tablet 00 PRN chest Medical pain, then Branch activate 911. nitroglycer 2018-05 Yes [id number] 1 tab [facility] in 0.4 mg 0-29 q5min up ity of sublingual 00:00: to 3 doses [place] tablet 00 PRN chest Medical pain, then Branch activate 911. nitroglycer 2018-05 Yes [id number] 1 tab [facility] in 0.4 mg 0-29 q5min up ity of sublingual 00:00: to 3 doses [place] tablet 00 PRN chest Medical pain, then Branch activate 911. nitroglycer 2018-05 Yes [id number] 1 tab [facility] in 0.4 mg 0-29 q5min up ity of sublingual 00:00: to 3 doses [place] tablet 00 PRN chest Medical pain, then Branch activate 911. nitroglycer 2018-05 Yes [id number] 1 tab [facility] in 0.4 mg 0-29 q5min up ity of sublingual 00:00: to 3 doses [place] tablet 00 PRN chest Medical pain, then Branch activate 911. nitroglycer 2018-05 Yes [id number] 1 tab [facility] in 0.4 mg 0-29 q5min up ity of sublingual 00:00: to 3 doses [place] tablet 00 PRN chest Medical pain, then Branch activate 911. nitroglycer 2018-05 Yes [id number] 1 tab [facility] in 0.4 mg 0-29 q5min up ity of sublingual 00:00: to 3 doses [place] tablet 00 PRN chest Medical pain, then Branch activate 911. nitroglycer 2018-05 Yes [id number] 1 tab [facility] in 0.4 mg 0-29 q5min up ity of sublingual 00:00: to 3 doses [place] tablet 00 PRN chest Medical pain, then Branch activate 911. nitroglycer 2018-05 Yes [id number] 1 tab [facility] in 0.4 mg 0-29 q5min up ity of sublingual 00:00: to 3 doses [place] tablet 00 PRN chest Medical pain, then Branch activate 911. nitroglycer 2018-05 Yes [id number] 1 tab [facility] in 0.4 mg 0-29 q5min up ity of sublingual 00:00: to 3 doses [place] tablet 00 PRN chest Medical pain, then Branch activate 911. nitroglycer 2018-05 Yes [id number] 1 tab [facility] in 0.4 mg 0-29 q5min up ity of sublingual 00:00: to 3 doses [place] tablet 00 PRN chest Medical pain, then Branch activate 911. nitroglycer 2018-05 Yes [id number] 1 tab [facility] in 0.4 mg 0-29 q5min up ity of sublingual 00:00: to 3 doses [place] tablet 00 PRN chest Medical pain, then Branch activate 911. nitroglycer 2018-05 Yes [id number] 1 tab [facility] in 0.4 mg 0-29 q5min up ity of sublingual 00:00: to 3 doses [place] tablet 00 PRN chest Medical pain, then Branch activate 911. nitroglycer 2018-05 Yes [id number] 1 tab [facility] in 0.4 mg 0-29 q5min up ity of sublingual 00:00: to 3 doses [place] tablet 00 PRN chest Medical pain, then Branch activate 911. nitroglycer 2018-05 Yes [id number] 1 tab [facility] in 0.4 mg 0-29 q5min up ity of sublingual 00:00: to 3 doses [place] tablet 00 PRN chest Medical pain, then Branch activate 911. nitroglycer 2018-05 Yes [id number] 1 tab [facility] in 0.4 mg 0-29 q5min up ity of sublingual 00:00: to 3 doses [place] tablet 00 PRN chest Medical pain, then Branch activate 911. nitroglycer 2018-05 Yes [id number] 1 tab [facility] in 0.4 mg 0-29 q5min up ity of sublingual 00:00: to 3 doses [place] tablet 00 PRN chest Medical pain, then Branch activate 911. nitroglycer 2018-05 Yes [id number] 1 tab [facility] in 0.4 mg 0-29 q5min up ity of sublingual 00:00: to 3 doses [place] tablet 00 PRN chest Medical pain, then Branch activate 911. nitroglycer 2018-05 Yes [id number] 1 tab [facility] in 0.4 mg 0-29 q5min up ity of sublingual 00:00: to 3 doses [place] tablet 00 PRN chest Medical pain, then Branch activate 911. nitroglycer 2018-05 Yes [id number] 1 tab [facility] in 0.4 mg 0-29 q5min up ity of sublingual 00:00: to 3 doses [place] tablet 00 PRN chest Medical pain, then Branch activate 911. nitroglycer 2018-05 Yes [id number] 1 tab [facility] in 0.4 mg 0-29 q5min up ity of sublingual 00:00: to 3 doses [place] tablet 00 PRN chest Medical pain, then Branch activate 911. nitroglycer 2018-05 Yes [id number] 1 tab [facility] in 0.4 mg 0-29 q5min up ity of sublingual 00:00: to 3 doses [place] tablet 00 PRN chest Medical pain, then Branch activate 911. nitroglycer 2018-05 Yes [id number] 1 tab [facility] in 0.4 mg 0-29 q5min up ity of sublingual 00:00: to 3 doses [place] tablet 00 PRN chest Medical pain, then Branch activate 911. nitroglycer 2018-05 Yes [id number] 1 tab [facility] in 0.4 mg 0-29 q5min up ity of sublingual 00:00: to 3 doses [place] tablet 00 PRN chest Medical pain, then Branch activate 911. nitroglycer 2018-05 Yes [id number] 1 tab [facility] in 0.4 mg 0-29 q5min up ity of sublingual 00:00: to 3 doses [place] tablet 00 PRN chest Medical pain, then Branch activate 911. nitroglycer 2018-05 Yes [id number] 1 tab [facility] in 0.4 mg 0-29 q5min up ity of sublingual 00:00: to 3 doses [place] tablet 00 PRN chest Medical pain, then Branch activate 911. nitroglycer 2018-05 Yes [id number] 1 tab [facility] in 0.4 mg 0-29 q5min up ity of sublingual 00:00: to 3 doses [place] tablet 00 PRN chest Medical pain, then Branch activate 911. nitroglycer 2018-05 Yes [id number] 1 tab [facility] in 0.4 mg 0-29 q5min up ity of sublingual 00:00: to 3 doses [place] tablet 00 PRN chest Medical pain, then Branch activate 911. nitroglycer 2018-05 Yes [id number] 1 tab [facility] in 0.4 mg 0-29 q5min up it[facility] of sublingual 00:00: to 3 doses [place] tablet 00 PRN chest Medical pain, then Branch activate 911. nitroglycer 2018-05 Yes [id number] 1 tab [facility] in 0.4 mg 0-29 q5min up [facility] of sublingual 00:00: to 3 doses [place] tablet 00 PRN chest Medical pain, then Branch activate 911. nitroglycer 2018-05 Yes [id number] 1 tab [facility] in 0.4 mg 0-29 q5min up [facility] of sublingual 00:00: to 3 doses [place] tablet 00 PRN chest Medical pain, then Branch activate 911. nitroglycer 2018-05 Yes [id number] 1 tab [facility] in 0.4 mg 0-29 q5min up it[facility] of sublingual 00:00: to 3 doses [place] tablet 00 PRN chest Medical pain, then Branch activate 911. atorvastati 2018-05 Yes [id number] 40mg Take 1 [facility] n (LIPITOR) 0-29 tablet by ity of 40 mg 00:00: mouth at [place] tablet 00 bedtime. [facility] clopidogrel 2018-05 Yes [id number] 75mg Take 1 [facility] (PLAVIX) 75 0-29 tablet by ity of mg tablet 00:00: mouth [place] 00 daily. [facility] DULoxetine 2018-05 Yes [id number] 30mg Take 1 [facility] 30 mg 0-29 capsule by it[facility] of capsule 00:00: mouth [place] 00 daily. [facility] pantoprazol 2018-05 Yes [id number] 40mg Take 1 [facility] e 40 mg EC 0-29 tablet by ity of tablet 00:00: mouth [place] 00 daily. [facility] potassium 2018-05 Yes [id number] 10meq Take 1 [facility] chloride 10 0-29 tablet by ity of mEq CR 00:00: mouth [place] tablet 00 daily. [facility] albuterol 2018-05 Yes [id number] 2{puff} Inhale 2 [facility] 90 0-29 Puffs ity of mcg/actuati 00:00: every 6 [place] on inhaler 00 (six) Medical hours as Branch needed for Wheezing or Shortness of Breath. nitroglycer 2018-05 Yes [id number] 1 tab [facility] in 0.4 mg 0-29 q5min up it[facility] of sublingual 00:00: to 3 doses [place] tablet 00 PRN chest Medical pain, then Branch activate 911. atorvastati 2018-05 Yes [id number] 40mg Take 1 [facility] n (LIPITOR) 0-29 tablet by ity of 40 mg 00:00: mouth at [place] tablet 00 bedtime. [facility] clopidogrel 2018-05 Yes [id number] 75mg Take 1 [facility] (PLAVIX) 75 0-29 tablet by ity of mg tablet 00:00: mouth [place] 00 daily. [facility] DULoxetine 2018-05 Yes [id number] 30mg Take 1 [facility] 30 mg 0-29 capsule by [facility] of capsule 00:00: mouth [place] 00 daily. [facility] pantoprazol 2018-05 Yes [id number] 40mg Take 1 [facility] e 40 mg EC 0-29 tablet by ity of tablet 00:00: mouth [place] 00 daily. [facility] potassium 2018-05 Yes [id number] 10meq Take 1 [facility] chloride 10 0-29 tablet by ity of mEq CR 00:00: mouth [place] tablet 00 daily. [facility] albuterol 2018-05 Yes [id number] 2{puff} Inhale 2 [facility] 90 0-29 Puffs ity of mcg/actuati 00:00: every 6 [place] inhaler 00 (six) Medical hours as Branch needed for Wheezing or Shortness of Breath. nitroglycer 2018-05 Yes [id number] 1 tab [facility] in 0.4 mg 0-29 q5min up it[facility] of sublingual 00:00: to 3 doses [place] tablet 00 PRN chest Medical pain, then Branch activate 911. atorvastati 2018-05 Yes [id number] 40mg Take 1 [facility] n (LIPITOR) 0-29 tablet by ity of 40 mg 00:00: mouth at [place] tablet 00 bedtime. [facility] clopidogrel 2018-05 Yes [id number] 75mg Take 1 [facility] (PLAVIX) 75 0-29 tablet by ity of mg tablet 00:00: mouth [place] 00 daily. [facility] DULoxetine 2018-05 Yes [id number] 30mg Take 1 [facility] 30 mg 0-29 capsule by ity of capsule 00:00: mouth [place] 00 daily. [facility] pantoprazol 2018-05 Yes [id number] 40mg Take 1 [facility] e 40 mg EC 0-29 tablet by ity of tablet 00:00: mouth [place] 00 daily. [facility] potassium 2018-05 Yes [id number] 10meq Take 1 [facility] chloride 10 0-29 tablet by ity of mEq CR 00:00: mouth [place] tablet 00 daily. [facility] albuterol 2018-05 Yes [id number] 2{puff} Inhale 2 [facility] 90 0-29 Puffs ity of mcg/actuati 00:00: every 6 [place] inhaler 00 (six) Medical hours as Branch needed for Wheezing or Shortness of Breath. nitroglycer 2018-05 Yes [id number] 1 tab [facility] in 0.4 mg 0-29 q5min up ity of sublingual 00:00: to 3 doses [place] tablet 00 PRN chest Medical pain, then Branch activate 911. atorvastati 2018-05 Yes [id number] 40mg Take 1 [facility] n (LIPITOR) 0-29 tablet by ity of 40 mg 00:00: mouth at [place] tablet 00 bedtime. [facility] clopidogrel 2018-05 Yes [id number] 75mg Take 1 [facility] (PLAVIX) 75 0-29 tablet by ity of mg tablet 00:00: mouth [place] 00 daily. [facility] DULoxetine 2018-05 Yes [id number] 30mg Take 1 [facility] 30 mg 0-29 capsule by it[facility] of capsule 00:00: mouth [place] 00 daily. [facility] pantoprazol 2018-05 Yes [id number] 40mg Take 1 [facility] e 40 mg EC 0-29 tablet by ity of tablet 00:00: mouth [place] 00 daily. [facility] potassium 2018-05 Yes [id number] 10meq Take 1 [facility] chloride 10 0-29 tablet by ity of mEq CR 00:00: mouth [place] tablet 00 daily. [facility] albuterol 2018-05 Yes [id number] 2{puff} Inhale 2 [facility] 90 0-29 Puffs ity of mcg/actuati 00:00: every 6 [place] inhaler 00 (six) Medical hours as Branch needed for Wheezing or Shortness of Breath. nitroglycer 2018-05 Yes [id number] 1 tab [facility] in 0.4 mg 0-29 q5min up it[facility] of sublingual 00:00: to 3 doses [place] tablet 00 PRN chest Medical pain, then Branch activate 911. atorvastati 2018-05 Yes [id number] 40mg Take 1 [facility] n (LIPITOR) 0-29 tablet by ity of 40 mg 00:00: mouth at [place] tablet 00 bedtime. [facility] clopidogrel 2018-05 Yes [id number] 75mg Take 1 [facility] (PLAVIX) 75 0-29 tablet by ity of mg tablet 00:00: mouth [place] 00 daily. [facility] DULoxetine 2018-05 Yes [id number] 30mg Take 1 [facility] 30 mg 0-29 capsule by ity of capsule 00:00: mouth [place] 00 daily. [facility] pantoprazol 2018-05 Yes [id number] 40mg Take 1 [facility] e 40 mg EC 0-29 tablet by ity of tablet 00:00: mouth [place] 00 daily. [facility] potassium 2018-05 Yes [id number] 10meq Take 1 [facility] chloride 10 0-29 tablet by ity of mEq CR 00:00: mouth [place] tablet 00 daily. [facility] albuterol 2018-05 Yes [id number] 2{puff} Inhale 2 [facility] 90 0-29 Puffs ity of mcg/actuati 00:00: every 6 [place] inhaler 00 (six) Medical hours as Branch needed for Wheezing or Shortness of Breath. nitroglycer 2018-05 Yes [id number] 1 tab [facility] in 0.4 mg 0-29 q5min up it[facility] of sublingual 00:00: to 3 doses [place] tablet 00 PRN chest Medical pain, then Branch activate 911. atorvastati 2018-05 Yes [id number] 40mg Take 1 [facility] n (LIPITOR) 0-29 tablet by ity of 40 mg 00:00: mouth at [place] tablet 00 bedtime. [facility] clopidogrel 2018-05 Yes [id number] 75mg Take 1 [facility] (PLAVIX) 75 0-29 tablet by ity of mg tablet 00:00: mouth [place] 00 daily. [facility] DULoxetine 2018-05 Yes [id number] 30mg Take 1 [facility] 30 mg 0-29 capsule by ity of capsule 00:00: mouth [place] 00 daily. [facility] pantoprazol 2018-05 Yes [id number] 40mg Take 1 [facility] e 40 mg EC 0-29 tablet by ity of tablet 00:00: mouth [place] 00 daily. [facility] potassium 2018-05 Yes [id number] 10meq Take 1 [facility] chloride 10 0-29 tablet by ity of mEq CR 00:00: mouth [place] tablet 00 daily. [facility] albuterol 2018-05 Yes [id number] 2{puff} Inhale 2 [facility] 90 0-29 Puffs ity of mcg/actuati 00:00: every 6 [place] inhaler 00 (six) Medical hours as Branch needed for Wheezing or Shortness of Breath. nitroglycer 2018-05 Yes [id number] 1 tab [facility] in 0.4 mg 0-29 q5min up ity of sublingual 00:00: to 3 doses [place] tablet 00 PRN chest Medical pain, then Branch activate 911. atorvastati 2018-05 Yes [id number] 40mg Take 1 [facility] n (LIPITOR) 0-29 tablet by ity of 40 mg 00:00: mouth at [place] tablet 00 bedtime. [facility] clopidogrel 2018-05 Yes [id number] 75mg Take 1 [facility] (PLAVIX) 75 0-29 tablet by ity of mg tablet 00:00: mouth [place] 00 daily. [facility] DULoxetine 2018-05 Yes [id number] 30mg Take 1 [facility] 30 mg 0-29 capsule by ity of capsule 00:00: mouth [place] 00 daily. [facility] pantoprazol 2018-05 Yes [id number] 40mg Take 1 [facility] e 40 mg EC 0-29 tablet by ity of tablet 00:00: mouth [place] 00 daily. [facility] potassium 2018-05 Yes [id number] 10meq Take 1 [facility] chloride 10 0-29 tablet by ity of mEq CR 00:00: mouth [place] tablet 00 daily. [facility] albuterol 2018-05 Yes [id number] 2{puff} Inhale 2 [facility] 90 0-29 Puffs ity of mcg/actuati 00:00: every 6 [place] inhaler 00 (six) Medical hours as Branch needed for Wheezing or Shortness of Breath. nitroglycer 2018-05 Yes [id number] 1 tab [facility] in 0.4 mg 0-29 q5min up it[facility] of sublingual 00:00: to 3 doses [place] tablet 00 PRN chest Medical pain, then Branch activate 911. DULoxetine 2018-05 Yes [id number] 30mg Take 1 [facility] 30 mg 0-29 capsule by ity of capsule 00:00: mouth [place] 00 daily. [facility] pantoprazol 2018-05 Yes [id number] 40mg Take 1 [facility] e 40 mg EC 0-29 tablet by ity of tablet 00:00: mouth [place] 00 daily. [facility] potassium 2018-05 Yes [id number] 10meq Take 1 [facility] chloride 10 0-29 tablet by ity of mEq CR 00:00: mouth [place] tablet 00 daily. [facility] albuterol 2018-05 Yes [id number] 2{puff} Inhale 2 [facility] 90 0-29 Puffs ity of mcg/actuati 00:00: every 6 [place] inhaler 00 (six) Medical hours as Branch needed for Wheezing or Shortness of Breath. nitroglycer 2018-05 Yes [id number] 1 tab [facility] in 0.4 mg 0-29 q5min up it[facility] of sublingual 00:00: to 3 doses [place] tablet 00 PRN chest Medical pain, then Branch activate 911. DULoxetine 2018-05 Yes [id number] 30mg Take 1 [facility] 30 mg 0-29 capsule by ity of capsule 00:00: mouth [place] 00 daily. [facility] pantoprazol 2018-05 Yes [id number] 40mg Take 1 [facility] e 40 mg EC 0-29 tablet by ity of tablet 00:00: mouth [place] 00 daily. [facility] potassium 2018-05 Yes [id number] 10meq Take 1 [facility] chloride 10 0-29 tablet by ity of mEq CR 00:00: mouth [place] tablet 00 daily. [facility] albuterol 2018-05 Yes [id number] 2{puff} Inhale 2 [facility] 90 0-29 Puffs ity of mcg/actuati 00:00: every 6 [place] inhaler 00 (six) Medical hours as Branch needed for Wheezing or Shortness of Breath. nitroglycer 2018-05 Yes [id number] 1 tab [facility] in 0.4 mg 0-29 q5min up it[facility] of sublingual 00:00: to 3 doses [place] tablet 00 PRN chest Medical pain, then Branch activate 911. DULoxetine 2018-05 Yes [id number] 30mg Take 1 [facility] 30 mg 0-29 [...] Bran ch activate 911. albuterol 2018-05- No [id number] 2{puff} Inhale 2 [facility] 90 0-29 12-19 Puffs ity of mcg/actuati 00:00: 00:00 every 6 [place] on inhaler 00 :00 (six) Medical hours as Branch needed for Wheezing or Shortness of Breath. albuterol 2018-05 2020- No [id number] 2{puff} Inhale 2 [facility] 90 0-29 12-19 Puffs ity of mcg/actuati 00:00: 00:00 every 6 [place] on inhaler 00 :00 (six) Medical hours as Branch needed for Wheezing or Shortness of Breath. pantoprazol 2018-05 2020- No [id number] 40mg Take 1 [facility] e 40 mg EC -08 tablet by ity of tablet 00:00: 00:00 mouth [place] 00 :00 daily. [facility] potassium 2018-05 2020- No [id number] 10meq Take 1 [facility] chloride 10 -08 tablet by it y of mEq CR 00:00: 00:00 mouth [place] tablet 00 :00 daily. [facility] atorvastati 2018-05 2020- No [id number] 40mg Take 1 [facility] n (LIPITOR) 03-20 tablet by it y of 40 mg 00:00: 00:00 mouth at [place] tablet 00 :00 bedtime. [facility] clopidogrel 2018-05 2020- No [id number] 75mg Take 1 [facility] (PLAVIX) 75 0-29 [...] mouth ity of LOW DOSE) 15:12: daily. [place] 81 mg EC 10 Medical tablet Branch [...] 10 Medical tablet Branch atorvastati 0 Yes [id number] 40mg Take 1 [facility] n (LIPITOR) 7-05 tablet by ity of 40 mg 00:00: mouth at [place] tablet 00 bedtime. [facility] DULoxetine 2019-0 Yes [id number] 30mg Take 1 [facility] 30 mg 7-05 capsule by ity of capsule 00:00: mouth [place] 00 daily. [facility] clopidogrel 2018- Yes [id number] 75mg Take 1 [facility] (PLAVIX) 75 7-05 tablet by ity of mg tablet 00:00: mouth [place] 00 daily. [facility] furosemide 2019-0 Yes [id number] 20mg Take 1 [facility] (LASIX) 20 7-05 tablet by ity of mg tablet 00:00: mouth [place] 00 daily. [facility] isosorbide 2019- Yes [id number] 30mg Take 1 [facility] mononitrate 7-05 tablet by ity of 30 mg 24 hr 00:00: mouth [place] tablet 00 daily. [facility] metoprolol 2019 Yes [id number] 25mg Take 1 [facility] n[facility] tartrate 25 7-05 tablet by ity of mg tablet 00:00: mouth [place] 00 daily. [facility] fluconazole 2019- Yes [id number] 150mg Take 1 [facility] (DIFLUCAN) 7-05 tablet by ity of 150 mg 00:00: mouth [place] tablet 00 SEE-INSTRU Medical CTIONS. 1 Branch PO weekly/PRN yeast infection atorvastati Yes [id number] 40mg Take 1 [facility] n (LIPITOR) 7-05 tablet by ity of 40 mg 00:00: mouth at [place] tablet 00 bedtime. [facility] DULoxetine Yes [id number] 30mg Take 1 [facility] 30 mg 7-05 capsule by ity of capsule 00:00: mouth [place] 00 daily. [facility] clopidogrel Yes [id number] 75mg Take 1 [facility] (PLAVIX) 75 7-05 tablet by ity of mg tablet 00:00: mouth [place] 00 daily. [facility] furosemide Yes [id number] 20mg Take 1 [facility] (LASIX) 20 7-05 tablet by ity of mg tablet 00:00: mouth [place] 00 daily. [facility] isosorbide Yes [id number] 30mg Take 1 [facility] mononitrate 7-05 tablet by ity of 30 mg 24 hr 00:00: mouth [place] tablet 00 daily. [facility] metoprolol Yes [id number] 25mg Take 1 [facility] n[facility] tartrate 25 7-05 tablet by ity of mg tablet 00:00: mouth [place] 00 daily. [facility] fluconazole Yes [id number] 150mg Take 1 [facility] (DIFLUCAN) 7-05 tablet by ity of 150 mg 00:00: mouth [place] tablet 00 SEE-INSTRU Medical CTIONS. 1 Branch PO weekly/PRN yeast infection atorvastati Yes [id number] 40mg Take 1 [facility] n (LIPITOR) 7-05 tablet by ity of 40 mg 00:00: mouth at [place] tablet 00 bedtime. [facility] DULoxetine Yes [id number] 30mg Take 1 [facility] 30 mg 7-05 capsule by ity of capsule 00:00: mouth [place] 00 daily. [facility] clopidogrel Yes [id number] 75mg Take 1 [facility] (PLAVIX) 75 7-05 tablet by ity of mg tablet 00:00: mouth [place] 00 daily. [facility] furosemide 2019-0 Yes [id number] 20mg Take 1 [facility] (LASIX) 20 7-05 tablet by ity of mg tablet 00:00: mouth [place] 00 daily. [facility] isosorbide 2019- Yes [id number] 30mg Take 1 [facility] mononitrate 7-05 tablet by ity of 30 mg 24 hr 00:00: mouth [place] tablet 00 daily. [facility] metoprolol 2019- Yes [id number] 25mg Take 1 [facility] tartrate 25 7-05 tablet by ity of mg tablet 00:00: mouth [place] 00 daily. [facility] fluconazole 2019- Yes [id number] 150mg Take 1 [facility] (DIFLUCAN) 7-05 tablet by ity of 150 mg 00:00: mouth [place] tablet 00 SEE-INSTRU Medical CTIONS. 1 Branch PO weekly/PRN yeast infection atorvastati 2019-0 Yes [id number] 40mg Take 1 [facility] n (LIPITOR) 7-05 tablet by ity of 40 mg 00:00: mouth at [place] tablet 00 bedtime. [facility] DULoxetine 2019- Yes [id number] 30mg Take 1 [facility] n[facility] 30 mg 7-05 capsule by ity of capsule 00:00: mouth [place] 00 daily. [facility] clopidogrel 2019-0 Yes [id number] 75mg Take 1 [facility] (PLAVIX) 75 7-05 tablet by ity of mg tablet 00:00: mouth [place] 00 daily. [facility] furosemide 2019- Yes [id number] 20mg Take 1 [facility] n[facility] (LASIX) 20 7-05 tablet by ity of mg tablet 00:00: mouth [place] 00 daily. [facility] isosorbide 2019- Yes [id number] 30mg Take 1 [facility] mononitrate 7-05 tablet by ity of 30 mg 24 hr 00:00: mouth [place] tablet 00 daily. [facility] metoprolol 2019- Yes [id number] 25mg Take 1 [facility] n[facility] tartrate 25 7-05 tablet by ity of mg tablet 00:00: mouth [place] 00 daily. [facility] fluconazole 2019-0 Yes [id number] 150mg Take 1 [facility] (DIFLUCAN) 7-05 tablet by ity of 150 mg 00:00: mouth [place] tablet 00 SEE-INSTRU Medical CTIONS. 1 Branch PO weekly/PRN yeast infection atorvastati 2019- Yes [id number] 40mg Take 1 [facility] n (LIPITOR) 7-05 tablet by ity of 40 mg 00:00: mouth at [place] tablet 00 bedtime. [facility] DULoxetine 2019 Yes [id number] 30mg Take 1 [facility] nivers 30 mg 7-05 capsule by ity of capsule 00:00: mouth [place] 00 daily. [facility] clopidogrel Yes [id number] 75mg Take 1 [facility] (PLAVIX) 75 7-05 tablet by ity of mg tablet 00:00: mouth [place] 00 daily. [facility] furosemide Yes [id number] 20mg Take 1 [facility] (LASIX) 20 7-05 tablet by ity of mg tablet 00:00: mouth [place] 00 daily. [facility] isosorbide Yes [id number] 30mg Take 1 [facility] mononitrate 7-05 tablet by ity of 30 mg 24 hr 00:00: mouth [place] tablet 00 daily. [facility] metoprolol Yes [id number] 25mg Take 1 [facility] nivers tartrate 25 7-05 tablet by ity of mg tablet 00:00: mouth [place] 00 daily. [facility] fluconazole Yes [id number] 150mg Take 1 [facility] (DIFLUCAN) 7-05 tablet by ity of 150 mg 00:00: mouth [place] tablet 00 SEE-INSTRU Medical CTIONS. 1 Branch PO weekly/PRN yeast infection atorvastati Yes [id number] 40mg Take 1 [facility] n (LIPITOR) 7-05 tablet by ity of 40 mg 00:00: mouth at [place] tablet 00 bedtime. [facility] DULoxetine Yes [id number] 30mg Take 1 [facility] 30 mg 7-05 capsule by ity of capsule 00:00: mouth [place] 00 daily. [facility] clopidogrel Yes [id number] 75mg Take 1 [facility] (PLAVIX) 75 7-05 tablet by ity of mg tablet 00:00: mouth [place] 00 daily. [facility] furosemide Yes [id number] 20mg Take 1 [facility] (LASIX) 20 7-05 tablet by ity of mg tablet 00:00: mouth [place] 00 daily. [facility] isosorbide Yes [id number] 30mg Take 1 [facility] mononitrate 7-05 tablet by ity of 30 mg 24 hr 00:00: mouth [place] tablet 00 daily. [facility] metoprolol 2019 Yes [id number] 25mg Take 1 [facility] n[facility] tartrate 25 7-05 tablet by ity of mg tablet 00:00: mouth [place] 00 daily. [facility] fluconazole 2019- Yes [id number] 150mg Take 1 [facility] (DIFLUCAN) 7-05 tablet by ity of 150 mg 00:00: mouth [place] tablet 00 SEE-INSTRU Medical CTIONS. 1 Branch PO weekly/PRN yeast infection atorvastati Yes [id number] 40mg Take 1 [facility] n (LIPITOR) 7-05 tablet by ity of 40 mg 00:00: mouth at [place] tablet 00 bedtime. [facility] DULoxetine Yes [id number] 30mg Take 1 [facility] 30 mg 7-05 capsule by ity of capsule 00:00: mouth [place] 00 daily. [facility] clopidogrel Yes [id number] 75mg Take 1 [facility] (PLAVIX) 75 7-05 tablet by ity of mg tablet 00:00: mouth [place] 00 daily. [facility] furosemide Yes [id number] 20mg Take 1 [facility] (LASIX) 20 7-05 tablet by ity of mg tablet 00:00: mouth [place] 00 daily. [facility] isosorbide Yes [id number] 30mg Take 1 [facility] mononitrate 7-05 tablet by ity of 30 mg 24 hr 00:00: mouth [place] tablet 00 daily. [facility] metoprolol Yes [id number] 25mg Take 1 [facility] n[facility] tartrate 25 7-05 tablet by ity of mg tablet 00:00: mouth [place] 00 daily. [facility] fluconazole Yes [id number] 150mg Take 1 [facility] (DIFLUCAN) 7-05 tablet by ity of 150 mg 00:00: mouth [place] tablet 00 SEE-INSTRU Medical CTIONS. 1 Branch PO weekly/PRN yeast infection atorvastati Yes [id number] 40mg Take 1 [facility] n (LIPITOR) 7-05 tablet by ity of 40 mg 00:00: mouth at [place] tablet 00 bedtime. Medical [facility] DULoxetine Yes [id number] 30mg Take 1 [facility] n[facility] 30 mg 7-05 capsule by ity of capsule 00:00: mouth [place] 00 daily. [facility] clopidogrel Yes [id number] 75mg Take 1 [facility] (PLAVIX) 75 7-05 tablet by ity of mg tablet 00:00: mouth [place] 00 daily. [facility] furosemide 2019- Yes [id number] 20mg Take 1 [facility] (LASIX) 20 7-05 tablet by ity of mg tablet 00:00: mouth [place] 00 daily. [facility] isosorbide Yes [id number] 30mg Take 1 [facility] mononitrate 7-05 tablet by ity of 30 mg 24 hr 00:00: mouth [place] tablet 00 daily. [facility] metoprolol Yes [id number] 25mg Take 1 [facility] n[facility] tartrate 25 7-05 tablet by ity of mg tablet 00:00: mouth [place] 00 daily. [facility] fluconazole Yes [id number] 150mg Take 1 [facility] (DIFLUCAN) 7-05 tablet by ity of 150 mg 00:00: mouth [place] tablet 00 SEE-INSTRU Medical CTIONS. 1 Branch PO weekly/PRN yeast infection metoprolol Yes [id number] 25mg Take 1 [facility] nivers tartrate 25 7-05 tablet by ity of mg tablet 00:00: mouth [place] 00 daily. [facility] metoprolol Yes [id number] 25mg Take 1 [facility] nivers tartrate 25 7-05 tablet by ity of mg tablet 00:00: mouth [place] 00 daily. [facility] metoprolol Yes [id number] 25mg Take 1 [facility] n[facility] tartrate 25 7-05 tablet by ity of mg tablet 00:00: mouth [place] 00 daily. [facility] metoprolol Yes [id number] 25mg Take 1 [facility] nivers tartrate 25 7-05 tablet by ity of mg tablet 00:00: mouth [place] 00 daily. [facility] metoprolol Yes [id number] 25mg Take 1 [facility] nivers tartrate 25 7-05 tablet by ity of mg tablet 00:00: mouth [place] 00 daily. [facility] metoprolol Yes [id number] 25mg Take 1 [facility] nivers tartrate 25 7-05 tablet by ity of mg tablet 00:00: mouth [place] 00 daily. [facility] metoprolol Yes [id number] 25mg Take 1 [facility] nivers tartrate 25 7-05 tablet by ity of mg tablet 00:00: mouth [place] 00 daily. [facility] metoprolol 2020- No [id number] 25mg Take 1 [facility] tartrate 25 11-30 03-20 tablet by it y of mg tablet 00:00: 00:00 mouth [place] 00 :00 daily. [facility] isosorbide 2020- No [id number] 30mg Take 1 [facility] mononitrate 11-30 tablet by it y of 30 mg 24 hr 00:00: 00:00 mouth [place] tablet 00 :00 daily. [facility] isosorbide 2020- No [id number] 30mg Take 1 [facility] mononitrate 11-30 tablet by it y of 30 mg 24 hr 00:00: 00:00 [place] tablet 00 :00 daily. [facility] isosorbide 2020- No [id number] 30mg Take 1 [facility] mononitrate 11-30 tablet [...] mouth ity o f tablet 18:18: daily. [place] [address] Medical Branch aspirin 2019-0 Yes 81mg Take 81 mg [facility] ers (ASPIRIN 6-19 by mouth ity of LOW DOSE) 18:18: daily. [place] 81 mg EC 24 Medical tablet Branch POTASSIUM 2018-0 Yes 1{tbl} Take 1 [facility] ers CHLORIDE 6-19 tablet by ity of (KLOR-CON 18:18: mouth [place] 10 ORAL) 24 daily. Medical Branch pantoprazol 0 Yes 40mg Take 40 mg [facility] e 40 mg EC 6-19 by mouth ity o f tablet 18:18: daily. [place] [address] [facility] Branch aspirin 2018-0 Yes 81mg Take 81 mg [facility] ers (ASPIRIN 6-19 by mouth ity of LOW DOSE) 18:18: daily. [place] 81 mg EC 24 Medical tablet Branch POTASSIUM 2018-0 Yes 1{tbl} Take 1 [facility] ers CHLORIDE 6-19 tablet by ity of (KLOR-CON 18:18: mouth [place] 10 ORAL) 24 daily. Medical Branch pantoprazol 0 Yes 40mg Take 40 mg [facility] e 40 mg EC 6-19 by mouth ity o f tablet 18:18: daily. [place] [address] Medical Branch aspirin 2018-0 Yes 81mg Take 81 mg [facility] ers (ASPIRIN 6-19 by mouth ity of LOW DOSE) 18:18: daily. [place] 81 mg EC 24 Medical tablet Branch POTASSIUM 2018-0 Yes 1{tbl} Take 1 [facility] ers CHLORIDE 6-19 tablet by ity of (KLOR-CON 18:18: mouth [place] 10 ORAL) 24 daily. Medical Branch pantoprazol 0 Yes 40mg Take 40 mg [facility] e 40 mg EC 6-19 by mouth ity o f tablet 18:18: daily. [place] [address] Medical Branch aspirin 2018-0 Yes 81mg Take 81 mg [facility] ers (ASPIRIN 6-19 by mouth ity of LOW DOSE) 18:18: daily. [place] 81 mg EC 24 Medical tablet Branch phenazopyri 2018-0 Yes [id number] 200mg Take 1 [facility] dine 200 mg 6-02 tablet by ity of tablet 00:00: mouth 3 (three) Medical times Branch daily. phenazopyri 2019-0 Yes [id number] 200mg Take 1 [facility] dine 200 mg 6-02 tablet by ity of tablet 00:00: mouth 3 (three) Medical times Branch daily. phenazopyri 2018-0 Yes [id number] 200mg Take 1 [facility] dine 200 mg 6-02 tablet by ity of tablet 00:00: mouth 3 (three) Medical times Branch daily. phenazopyri 2018-0 Yes [id number] 200mg Take 1 [facility] dine 200 mg 6-02 tablet by ity of tablet 00:00: mouth 3 (three) Medical times Branch daily. phenazopyri 2018-0 Yes [id number] 200mg Take 1 [facility] dine 200 mg 6-02 tablet by ity of tablet 00:00: mouth 3 (three) Medical times Branch daily. phenazopyri 2018- Yes [id number] 200mg Take 1 [facility] dine 200 mg 6-02 tablet by ity of tablet 00:00: mouth (three) Medical times Branch daily. phenazopyri 2018- Yes [id number] 200mg Take 1 [facility] dine 200 mg 6-02 tablet by ity of tablet 00:00: mouth (three) Medical times Branch daily. phenazopyri 2018- Yes [id number] 200mg Take 1 [facility] dine 200 mg 6-02 tablet by ity of tablet 00:00: mouth (three) Medical times Branch daily. phenazopyri 2018-0 Yes [id number] 200mg Take 1 [facility] dine 200 mg 6-02 tablet by ity of tablet 00:00: mouth (three) Medical times Branch daily. phenazopyri 2018-0 Yes [id number] 200mg Take 1 [facility] dine 200 mg 6-02 tablet by ity of tablet 00:00: mouth (three) Medical times Branch daily. phenazopyri 2018-0 Yes [id number] 200mg Take 1 [facility] dine 200 mg 6-02 tablet by ity of tablet 00:00: mouth 3 (three) Medical times Branch daily. phenazopyri 2018-0 Yes [id number] 200mg Take 1 [facility] dine 200 mg 6-02 tablet by ity of tablet 00:00: mouth 3 (three) Medical times Branch daily. phenazopyri 2018-0 Yes [id number] 200mg Take 1 [facility] dine 200 mg 6-02 tablet by ity of tablet 00:00: mouth 3 (three) Medical times Branch daily. phenazopyri 2019-0 Yes [id number] 200mg Take 1 [facility] dine 200 mg 6-02 tablet by ity of tablet 00:00: mouth 3 (three) Medical times Branch daily. phenazopyri 2018-0 Yes [id number] 200mg Take 1 [facility] dine 200 mg 6-02 tablet by ity of tablet 00:00: mouth 3 (three) Medical times Branch daily. phenazopyri 2018-0 Yes [id number] 200mg Take 1 [facility] dine 200 mg 6-02 tablet by ity of tablet 00:00: mouth 3 (three) Medical times Branch daily. phenazopyri 2018-0 Yes [id number] 200mg Take 1 [facility] dine 200 mg 6-02 tablet by ity of tablet 00:00: mouth 3 (three) Medical times Branch daily. phenazopyri 2018-0 Yes [id number] 200mg Take 1 [facility] dine 200 mg 6-02 tablet by ity of tablet 00:00: mouth (three) Medical times Branch daily. phenazopyri 2018- Yes [id number] 200mg Take 1 [facility] dine 200 mg 6-02 tablet by ity of tablet 00:00: mouth (three) Medical times Branch daily. phenazopyri 2018-0 Yes [id number] 200mg Take 1 [facility] dine 200 mg 6-02 tablet by ity of tablet 00:00: mouth [place] (three) Medical times Branch daily. phenazopyri 2018-0 Yes [id number] 200mg Take 1 [facility] dine 200 mg 6-02 tablet by ity of tablet 00:00: mouth 3 [place] (three) Medical times Branch daily. phenazopyri 2018-0 Yes [id number] 200mg Take 1 [facility] dine 200 mg 6-02 tablet by ity of tablet 00:00: mouth 3 [place] (three) Medical times Branch daily. phenazopyri 2018-0 Yes [id number] 200mg Take 1 [facility] dine 200 mg 6-02 tablet by ity of tablet 00:00: mouth 3 [place] (three) Medical times Branch daily. phenazopyri 2018-0 Yes [id number] 200mg Take 1 [facility] dine 200 mg 6-02 tablet by ity of tablet 00:00: mouth 3 [place] (three) Medical times Branch daily. phenazopyri 2019-0 Yes [id number] 200mg Take 1 [facility] dine 200 mg 6-02 tablet by ity of tablet 00:00: mouth 3 [place] 00 (three) Medical times Branch daily. phenazopyri 2018-0 Yes [id number] 200mg Take 1 [facility] dine 200 mg 6-02 tablet by ity of tablet 00:00: mouth 3 [place] 00 (three) Medical times Branch daily. phenazopyri 2018-0 Yes [id number] 200mg Take 1 [facility] dine 200 mg 6-02 tablet by ity of tablet 00:00: mouth 3 [place] 00 (three) Medical times Branch daily. phenazopyri 2018-0 Yes [id number] 200mg Take 1 [facility] dine 200 mg 6-02 tablet by ity of tablet 00:00: mouth 3 [place] 00 (three) Medical times Branch daily. phenazopyri 2018-0 Yes [id number] 200mg Take 1 [facility] dine 200 mg 6-02 tablet by ity of tablet 00:00: mouth 3 [place] 00 (three) Medical times Branch daily. phenazopyri 2018-0 Yes [id number] 200mg Take 1 [facility] dine 200 mg 6-02 tablet by ity of tablet 00:00: mouth 3 [place] 00 (three) Medical times Branch daily. phenazopyri 2018-0 Yes [id number] 200mg Take 1 [facility] dine 200 mg 6-02 tablet by ity of tablet 00:00: mouth 3 [place] 00 (three) Medical times Branch daily. phenazopyri 2018-0 Yes [id number] 200mg Take 1 [facility] dine 200 mg 6-02 tablet by ity of tablet 00:00: mouth 3 [place] 00 (three) Medical times Branch daily. phenazopyri 2018-0 Yes [id number] 200mg Take 1 [facility] dine 200 mg 6-02 tablet by ity of tablet 00:00: mouth 3 [place] 00 (three) Medical times Branch daily. phenazopyri 2018-0 Yes [id number] 200mg Take 1 [facility] dine 200 mg 6-02 tablet by ity of tablet 00:00: mouth 3 [place] 00 (three) Medical times Branch daily. phenazopyri 2018- 2020- No [id number] 200mg Take 1 [facility] dine 200 mg 6-02 08-14 tablet by it y of tablet 00:00: 00:00 mouth 3 [place] 00 :00 (three) Medical times Branch daily. phenazopyri 2020- No [id number] 200mg Take 1 [facility] dine 200 mg 10-28 0814 tablet by it y of tablet 00:00: 00:00 mouth 3 [place] 00 :00 (three) Medical times Branch daily. miSOPROStol 2018- Yes [id number] Take one [facility] 200 mcg 5-10 tablet the ity of tablet 00:00: night [place] 00 before Medical procedure, Branch take one table the morning of procedure. miSOPROStol 2018- Yes [id number] Take one [facility] 200 mcg 5-10 tablet the ity of tablet 00:00: night [place] 00 before Medical procedure, Branch take one table the morning of procedure. miSOPROStol 2018- Yes [id number] Take one [facility] 200 mcg 5-10 tablet the ity of tablet 00:00: night [place] 00 before Medical procedure, Branch take one table the morning of procedure. miSOPROStol Yes [id number] Take one [facility] 200 mcg 5-10 tablet the ity of tablet 00:00: night [place] 00 before Medical procedure, Branch take one table the morning of procedure. miSOPROStol 2018- Yes [id number] Take one [facility] 200 mcg 5-10 tablet the ity of tablet 00:00: night [place] 00 before Medical procedure, Branch take one table the morning of procedure. miSOPROStol 2018- Yes [id number] Take one [facility] 200 mcg 5-10 tablet the ity of tablet 00:00: night [place] 00 before Medical procedure, Branch take one table the morning of procedure. miSOPROStol 2019- No [id number] Take one [facility] 200 mcg 5-10 09-09 tablet the ity o f tablet 00:00: 00:00 night [place] 00 :00 before Medical procedure, Branch take one table the morning of procedure. miSOPROStol 2019- No [id number] Take one [facility] 200 mcg 5-10 09-09 tablet the ity o f tablet 00:00: 00:00 night [place] 00 :00 before Medical procedure, Branch take one table the morning of procedure. escitalopra 2018- Yes [id number] 10mg Take 1 [facility] m oxalate 4-30 tablet by ity o f (LEXAPRO) 00:00: mouth [place] 10 mg 00 daily. Medical tablet Branch escitalopra 2018- Yes [id number] 10mg Take 1 [facility] m oxalate 4-30 tablet by ity o f (LEXAPRO) 00:00: mouth [place] 10 mg 00 daily. Medical tablet Branch escitalopra Yes [id number] 10mg Take 1 [facility] m oxalate 4-30 tablet by ity o f (LEXAPRO) 00:00: mouth [place] 10 mg 00 daily. Medical tablet Branch escitalopra Yes [id number] 10mg Take 1 [facility] m oxalate 4-30 tablet by ity o f (LEXAPRO) 00:00: mouth [place] 10 mg 00 daily. Medical tablet Branch escitalopra Yes [id number] 10mg Take 1 [facility] m oxalate 4-30 tablet by ity o f (LEXAPRO) 00:00: mouth [place] 10 mg 00 daily. Medical tablet Branch escitalopra Yes [id number] 10mg Take 1 [facility] m oxalate 4-30 tablet by ity o f (LEXAPRO) 00:00: mouth [place] 10 mg 00 daily. Medical tablet Branch escitalopra 2019- No [id number] 10mg Take 1 [facility] m oxalate 4-30 09-09 tablet by ity of (LEXAPRO) 00:00: 00:00 mouth [place] 10 mg 00 :00 daily. Medical tablet Branch escitalopra 2019- No [id number] 10mg Take 1 [facility] m oxalate 4-30 09-09 tablet by ity of (LEXAPRO) 00:00: 00:00 mouth [place] 10 mg 00 :00 daily. Medical tablet Branch Nitrofurant 2018- Yes [id number] 100mg Take 1 [facility] oin&Nit. 4-25 capsule by ity o f Macrocryst 00:00: mouth [place] (MACROBID) 00 daily. Medical 100 mg Branch capsule Nitrofurant 2018- Yes [id number] 100mg Take 1 [facility] oin&Nit. 4-25 capsule by ity o f Macrocryst 00:00: mouth [place] (MACROBID) 00 daily. Medical 100 mg Branch capsule Nitrofurant 2018- Yes [id number] 100mg Take 1 [facility] oin&Nit. 4-25 capsule by ity o f Macrocryst 00:00: mouth [place] (MACROBID) 00 daily. Medical 100 mg Branch capsule Nitrofurant 2018- Yes [id number] 100mg Take 1 [facility] oin&Nit. 4-25 capsule by ity o f Macrocryst 00:00: mouth [place] (MACROBID) 00 daily. Medical 100 mg Branch capsule Nitrofurant 2019-0 Yes 100mg Take 1 [facility] oin&Nit. 4-25 capsule by ity o f Macrocryst 00:00: mouth [place] (MACROBID) 00 daily. Medical 100 mg Branch capsule Nitrofurant 2019-0 Yes [id number] 100mg Take 1 [facility] oin&Nit. 4-25 capsule [...] 100 mg Branch capsule Nitrofurant 2019-0 Yes [id number] 100mg Take 1 [facility] oin&Nit. 4-25 capsule by ity o f Macrocryst 00:00: mouth [place] (MACROBID) 00 daily. Medical 100 mg Branch capsule Nitrofurant 2019-0 Yes [id number] 100mg Take 1 [facility] oin&Nit. 4-25 capsule by ity o f Macrocryst 00:00: mouth [place] (MACROBID) 00 daily. Medical 100 mg Branch capsule Nitrofurant 2019-0 Yes [id number] 100mg Take 1 [facility] oin&Nit. 4-25 capsule by ity o f Macrocryst 00:00: mouth [place] (MACROBID) 00 daily. Medical 100 mg Branch capsule Nitrofurant 2018-0 Yes [id number] 100mg Take 1 [facility] oin&Nit. 4-25 capsule by ity o f Macrocryst 00:00: mouth [place] (MACROBID) 00 daily. Medical 100 mg Branch capsule Nitrofurant 2019-0 Yes [id number] 100mg Take 1 [facility] oin&Nit. 4-25 capsule by ity o f Macrocryst 00:00: mouth [place] (MACROBID) 00 daily. Medical 100 mg Branch capsule Nitrofurant 2018-0 Yes [id number] 100mg Take 1 [facility] oin&Nit. 4-25 capsule by ity o f Macrocryst 00:00: mouth [place] (MACROBID) 00 daily. Medical 100 mg Branch capsule Nitrofurant 2019-0 Yes [id number] 100mg Take 1 [facility] oin&Nit. 4-25 capsule by ity o f Macrocryst 00:00: mouth [place] (MACROBID) 00 daily. Medical 100 mg Branch capsule Nitrofurant 2019-0 Yes [id number] 100mg Take 1 [facility] oin&Nit. 4-25 capsule by ity o f Macrocryst 00:00: mouth [place] (MACROBID) 00 daily. Medical 100 mg Branch capsule Nitrofurant 2019-0 Yes [id number] 100mg Take 1 [facility] oin&Nit. 4-25 capsule by ity o f Macrocryst 00:00: mouth [place] (MACROBID) 00 daily. Medical 100 mg Branch capsule Nitrofurant 2019-0 Yes [id number] 100mg Take 1 [facility] oin&Nit. 4-25 capsule by ity o f Macrocryst 00:00: mouth [place] (MACROBID) 00 daily. Medical 100 mg Branch capsule Nitrofurant 2019-0 Yes [id number] 100mg Take 1 [facility] oin&Nit. 4-25 capsule by ity o f Macrocryst 00:00: mouth [place] (MACROBID) 00 daily. Medical 100 mg Branch capsule Nitrofurant 2019-0 Yes [id number] 100mg Take 1 [facility] oin&Nit. 4-25 capsule [...] 100 mg Branch capsule Nitrofurant 2018-0 Yes [id number] 100mg Take 1 [facility] oin&Nit. 4-25 capsule [...] 100 mg Branch capsule Nitrofurant 2019-0 Yes [id number] 100mg Take 1 [facility] oin&Nit. 4-25 capsule by ity o f Macrocryst 00:00: mouth [place] (MACROBID) 00 daily. Medical 100 mg Branch capsule Nitrofurant 2019-0 Yes [id number] 100mg Take 1 [facility] oin&Nit. 4-25 capsule by ity o f Macrocryst 00:00: mouth [place] (MACROBID) 00 daily. Medical 100 mg Branch capsule Nitrofurant 2019-0 Yes [id number] 100mg Take 1 [facility] oin&Nit. 4-25 capsule by ity o f Macrocryst 00:00: mouth [place] (MACROBID) 00 daily. Medical 100 mg Branch capsule Nitrofurant 2019-0 2020- No [id number] 100mg Take 1 [facility] oin&Nit. 4-25 08-14 capsule by ity of Macrocryst 00:00: 00:00 mouth [place] (MACROBID) 00 :00 daily. Medical 100 mg Branch capsule Nitrofurant 2019-0 2020- No [id number] 100mg Take 1 [facility] oin&Nit. 4-25 08-14 [...] mg 09-18 ity of tablet 00:00: 00:00 [place] 00 :00 Medical Branch levoFLOXaci 2019-0 2019- No Unive rs n 500 mg 09-18 ity of tablet 00:00: 00:00 [place] 00 :00 Medical Branch levETIRAcet 2019-0 Yes Univer s am 500 mg 4-06 ity of tablet 00:00: [place] 00 Medical Branch levETIRAcet 2019-0 Yes Univer s am 500 mg 4-06 ity of tablet 00:00: [place] 00 Medical Branch levETIRAcet 2019-0 Yes Univer s am 500 mg 4-06 ity of tablet 00:00: [place] 00 Medical Branch levETIRAcet 2019-0 Yes Univer s am 500 mg 4-06 ity of tablet 00:00: [place] 00 Medical Branch levETIRAcet 2019-0 Yes Univer s am 500 mg 4-06 ity of tablet 00:00: [place] 00 Medical Branch levETIRAcet 2019-0 Yes Univer s am 500 mg 4-06 ity of tablet 00:00: [place] 00 Medical Branch levETIRAcet 2019-0 Yes Univer s am 500 mg 4-06 ity of tablet 00:00: [place] 00 Medical Branch levETIRAcet 2019-0 Yes Univer s am 500 mg 4-06 ity of tablet 00:00: [place] 00 Medical Branch levETIRAcet 2019-0 Yes Univer s am 500 mg 4-06 ity of tablet 00:00: [place] 00 Medical Branch levETIRAcet 2019-0 Yes Univer [...] 500 mg 4-06 ity of tablet 00:00: [place] 00 Medical Branch levETIRAcet 2019-0 Yes Univer [...] 500 mg 4-06 ity of tablet 00:00: [place] 00 Medical Branch escitalopra 2019-0 Yes Univer s m oxalate 4-06 ity of 20 mg 00:00: [place] tablet 00 Medical Branch levETIRAcet 2019-0 Yes Univer s am 500 mg 4-06 ity of tablet 00:00: [place] 00 Medical Branch levETIRAcet 2019-0 Yes Univer s am 500 mg 4-06 ity of tablet 00:00: [place] 00 [facility] Branch levETIRAcet 2019-0 Yes Univer s am 500 mg 4-06 ity of tablet 00:00: [place] 00 Medical Branch levETIRAcet 2019-0 Yes Univer s am 500 mg 4-06 ity of tablet 00:00: [place] 00 [facility] Branch levETIRAcet 2019-0 Yes Univer s am 500 mg 4-06 ity of tablet 00:00: [place] 00 [facility] Branch levETIRAcet 2019-0 Yes Univer s am 500 mg 4-06 ity of tablet 00:00: [place] 00 [facility] Branch levETIRAcet 2019-0 Yes Univer s am 500 mg 4-06 ity of tablet 00:00: [place] 00 Medical Branch levETIRAcet 2019-0 Yes Univer s am 500 mg 4-06 ity of tablet 00:00: [place] 00 Medical Branch levETIRAcet 2019-0 Yes Univer s am 500 mg 4-06 ity of tablet 00:00: [place] 00 Medical Branch levETIRAcet 2019-0 Yes Univer s am 500 mg 4-06 ity of tablet 00:00: [place] 00 Medical Branch levETIRAcet 2019-0 Yes Univer s am 500 mg 4-06 ity of tablet 00:00: [place] 00 [facility] levETIRAcet 2019-0 2020- No Unive rs am 500 mg 4-06 08-14 ity of tablet 00:00: 00:00 [place] 00 :00 Medical Branch levETIRAcet 2019-0 2020- No Unive rs am 500 mg 09-01 ity of tablet 00:00: 00:00 [place] 00 :00 Medical Branch gabapentin 2019-0 Yes [id number] 800mg Take 1 [facility] 800 mg 4-05 tablet by ity of tablet 00:00: mouth 3 (three) Medical times Branch daily. metFORMIN 2019-0 Yes 1000mg Take 2 [facility] ers 500 mg 4-05 tablets by ity of tablet 00:00: mouth (two) Medical times Branch daily with meals. You can do two pills in the morning and one in the evening. gabapentin 2019-0 Yes [id number] 800mg Take 1 [facility] 800 mg 4-05 tablet by ity of tablet 00:00: mouth (three) Medical times Branch daily. metFORMIN 2019-0 Yes 1000mg Take 2 [facility] ers 500 mg 4-05 tablets by ity of tablet 00:00: mouth (two) Medical times Branch daily with meals. You can do two pills in the morning and one in the evening. gabapentin 2019-0 Yes [id number] 800mg Take 1 [facility] 800 mg 4-05 tablet by ity of tablet 00:00: mouth (three) Medical times Branch daily. metFORMIN 2019-0 Yes 1000mg Take 2 [facility] ers 500 mg 4-05 tablets by ity of tablet 00:00: mouth (two) Medical times Branch daily with meals. You can do two pills in the morning and one in the evening. gabapentin 2019-0 Yes [id number] 800mg Take 1 [facility] 800 mg 4-05 [...] one in the evening. gabapentin 2019-0 Yes [id number] 800mg Take 1 [facility] 800 mg 4-05 [...] injection breakfast and dinner. gabapentin 2019-0 Yes [id number] 800mg Take 1 [facility] 800 mg 4-05 [...] injection breakfast and dinner. gabapentin 2019-0 Yes [id number] 800mg Take 1 [facility] 800 mg 4-05 [...] injection breakfast and dinner. gabapentin 2019-0 Yes [id number] 800mg Take 1 [facility] 800 mg 4-05 [...] injection breakfast and dinner. gabapentin 2019-0 Yes [id number] 800mg Take 1 [facility] 800 mg 4-05 [...] injection breakfast and dinner. gabapentin 2019-0 Yes [id number] 800mg Take 1 [facility] 800 mg 4-05 [...] injection breakfast and dinner. gabapentin 2019-0 Yes [id number] 800mg Take 1 [facility] 800 mg 4-05 [...] injection breakfast and dinner. gabapentin 2019-0 Yes [id number] 800mg Take 1 [facility] 800 mg 4-05 [...] injection breakfast and dinner. gabapentin 2019-0 Yes [id number] 800mg Take 1 [facility] 800 mg 4-05 tablet by ity of tablet 00:00: mouth (three) Medical times Branch daily. metFORMIN 2019-0 Yes 1000mg Take 2 [facility] ers 500 mg 4-05 tablets by ity of tablet 00:00: mouth (two) Medical times Branch daily with meals. You can do two pills in the morning and one in the evening. gabapentin 2019-0 Yes [id number] 800mg Take 1 [facility] 800 mg 4-05 tablet by ity of tablet 00:00: mouth (three) Medical times Branch daily. metFORMIN 2019-0 Yes 1000mg Take 2 [facility] ers 500 mg 4-05 tablets by ity of tablet 00:00: mouth (two) Medical times Branch daily with meals. You can do two pills in the morning and one in the evening. gabapentin 2019-0 Yes [id number] 800mg Take 1 [facility] 800 mg 4-05 tablet by ity of tablet 00:00: mouth (three) Medical times Branch daily. metFORMIN 2019-0 Yes 1000mg Take 2 [facility] ers 500 mg 4-05 tablets by ity of tablet 00:00: mouth (two) Medical times Branch daily with meals. You can do two pills in the morning and one in the evening. gabapentin 2019-0 Yes [id number] 800mg Take 1 [facility] 800 mg 4-05 tablet by ity of tablet 00:00: mouth 3 (three) Medical times Branch daily. metFORMIN 2019-0 Yes 1000mg Take 2 [facility] ers 500 mg 4-05 tablets by ity of tablet 00:00: mouth (two) Medical times Branch daily with meals. You can do two pills in the morning and one in the evening. gabapentin 2019-0 Yes [id number] 800mg Take 1 [facility] 800 mg 4-05 tablet by ity of tablet 00:00: mouth (three) Medical times Branch daily. metFORMIN 2019-0 Yes 1000mg Take 2 [facility] ers 500 mg 4-05 tablets by ity of tablet 00:00: mouth (two) Medical times Branch daily with meals. You can do two pills in the morning and one in the evening. gabapentin 2019-0 Yes [id number] 800mg Take 1 [facility] 800 mg 4-05 tablet by ity of tablet 00:00: mouth (three) Medical times Branch daily. metFORMIN 2019-0 Yes 1000mg Take 2 [facility] ers 500 mg 4-05 tablets by ity of tablet 00:00: mouth (two) Medical times Branch daily with meals. You can do two pills in the morning and one in the evening. gabapentin 2019-0 Yes [id number] 800mg Take 1 [facility] 800 mg 4-05 tablet by ity of tablet 00:00: mouth (three) Medical times Branch daily. metFORMIN 2019-0 Yes 1000mg Take 2 [facility] ers 500 mg 4-05 tablets by ity of tablet 00:00: mouth (two) Medical times Branch daily with meals. You can do two pills in the morning and one in the evening. gabapentin 2019-0 Yes [id number] 800mg Take 1 [facility] 800 mg 4-05 tablet by ity of tablet 00:00: mouth (three) Medical times Branch daily. metFORMIN 2019-0 Yes 1000mg Take 2 [facility] ers 500 mg 4-05 tablets by ity of tablet 00:00: mouth (two) Medical times Branch daily with meals. You can do two pills in the morning and one in the evening. gabapentin 2019-0 Yes [id number] 800mg Take 1 [facility] 800 mg 4-05 [...] one in the evening. gabapentin 2019-0 Yes [id number] 800mg Take 1 [facility] 800 mg 4-05 [...] in the evening. gabapentin 2019- 2020- No [id number] 800mg Take 1 [facility] 800 mg 4-05 05-05 tablet by ity of tablet 00:00: 00:00 mouth 3 [place] 00 :00 (three) Medical times Branch daily. gabapentin 2019- 2020- No [id number] 800mg Take 1 [facility] 800 mg 4-05 05-05 tablet by ity of tablet 00:00: 00:00 mouth 3 [place] 00 :00 (three) Medical times Branch daily. gabapentin 2018- 2020- No [id number] 800mg Take 1 [facility] 800 mg 4-05 [...] tablet times Branch daily. Insulin 2018-0 Yes [id number] Use as Uni vers Syringe-Nee 3-30 directed ity of dle U-100 00:00: [place] (INSULIN 00 Medical SYRINGE) 1 Branch mL 30 gauge x 5/16 Syrg Insulin 2018-0 Yes [id number] Use as Uni vers Syringe-Nee 3-30 directed ity of dle U-100 00:00: [place] (INSULIN 00 Medical SYRINGE) 1 Branch mL 30 gauge x 5/16 Syrg Insulin 2018-0 Yes [id number] Use as Uni vers Syringe-Nee 3-30 directed ity of dle U-100 00:00: [place] (INSULIN 00 Medical SYRINGE) 1 Branch mL 30 gauge x 5/16 Syrg Insulin 2018-0 Yes [id number] Use as Uni vers Syringe-Nee 3-30 directed ity of dle U-100 00:00: [place] (INSULIN 00 Medical SYRINGE) 1 Branch mL 30 gauge x 5/16 Syrg Insulin 2018-0 Yes [id number] Use as Uni vers Syringe-Nee 3-30 directed ity of dle U-100 00:00: [place] (INSULIN 00 Medical SYRINGE) 1 Branch mL 30 gauge x 5/16 Syrg Insulin 2017-0 Yes [id number] Use as Uni vers Syringe-Nee 3-30 directed ity of dle U-100 00:00: [place] (INSULIN 00 Medical SYRINGE) 1 Branch mL 30 gauge x 5/16 Syrg Insulin 2017-0 Yes [id number] Use as Uni vers Syringe-Nee 3-30 directed ity of dle U-100 00:00: [place] (INSULIN 00 Medical SYRINGE) 1 Branch mL 30 gauge x 5/16 Syrg Insulin 2017-0 Yes [id number] Use as Uni vers Syringe-Nee 3-30 directed ity of dle U-100 00:00: [place] (INSULIN 00 Medical SYRINGE) 1 Branch mL 30 gauge x 5/16 Syrg Insulin 2017-0 Yes [id number] Use as Uni vers Syringe-Nee 3-30 directed ity of dle U-100 00:00: [place] (INSULIN 00 Medical SYRINGE) 1 Branch mL 30 gauge x 5/16 Syrg Insulin 2017-0 Yes [id number] Use as Uni vers Syringe-Nee 3-30 directed ity of dle U-100 00:00: [place] (INSULIN 00 Medical SYRINGE) 1 Branch mL 30 gauge x 5/16 Syrg Insulin 2018-0 Yes [id number] Use as Uni vers Syringe-Nee 3-30 directed ity of dle U-100 00:00: [place] (INSULIN 00 Medical SYRINGE) 1 Branch mL 30 gauge x 5/16 Syrg Insulin 2018-0 Yes [id number] Use as Uni vers Syringe-Nee 3-30 directed ity of dle U-100 00:00: [place] (INSULIN 00 Medical SYRINGE) 1 Branch mL 30 gauge x 5/16 Syrg Insulin 2018-0 Yes [id number] Use as Uni vers Syringe-Nee 3-30 directed ity of dle U-100 00:00: [place] (INSULIN 00 Medical SYRINGE) 1 Branch mL 30 gauge x 5/16 Syrg Insulin 2018-0 Yes [id number] Use as Uni vers Syringe-Nee 3-30 directed ity of dle U-100 00:00: [place] (INSULIN 00 Medical SYRINGE) 1 Branch mL 30 gauge x 5/16 Syrg Insulin 2018-0 Yes [id number] Use as Uni vers Syringe-Nee 3-30 directed ity of dle U-100 00:00: [place] (INSULIN 00 Medical SYRINGE) 1 Branch mL 30 gauge x 5/16 Syrg Insulin 2018-0 Yes [id number] Use as Uni vers Syringe-Nee 3-30 directed ity of dle U-100 00:00: [place] (INSULIN 00 Medical SYRINGE) 1 Branch mL 30 gauge x 5/16 Syrg Insulin 2017-0 Yes [id number] Use as Uni vers Syringe-Nee 3-30 directed ity of dle U-100 00:00: [place] (INSULIN 00 Medical SYRINGE) 1 Branch mL 30 gauge x 5/16 Syrg Insulin 2017-0 Yes [id number] Use as Uni vers Syringe-Nee 3-30 directed ity of dle U-100 00:00: [place] (INSULIN 00 Medical SYRINGE) 1 Branch mL 30 gauge x 5/16 Syrg Insulin 2018-0 Yes [id number] Use as Uni vers Syringe-Nee 3-30 directed ity of dle U-100 00:00: [place] (INSULIN 00 Medical SYRINGE) 1 Branch mL 30 gauge x 5/16 Syrg Insulin 2018-0 Yes [id number] Use as Uni vers Syringe-Nee 3-30 directed ity of dle U-100 00:00: [place] (INSULIN 00 Medical SYRINGE) 1 Branch mL 30 gauge x 5/16 Syrg Insulin 2018-0 Yes [id number] Use as Uni vers Syringe-Nee 3-30 directed ity of dle U-100 00:00: [place] (INSULIN 00 Medical SYRINGE) 1 Branch mL 30 gauge x 5/16 Syrg Insulin 2018-0 Yes [id number] Use as Uni vers Syringe-Nee 3-30 directed ity of dle U-100 00:00: [place] (INSULIN 00 Medical SYRINGE) 1 Branch mL 30 gauge x 5/16 Syrg Insulin 2018-0 Yes [id number] Use as Uni vers Syringe-Nee 3-30 directed ity of dle U-100 00:00: [place] (INSULIN 00 Medical SYRINGE) 1 Branch mL 30 gauge x 5/16 Syrg Insulin 2018-0 Yes [id number] Use as Uni vers Syringe-Nee 3-30 directed ity of dle U-100 00:00: [place] (INSULIN 00 Medical SYRINGE) 1 Branch mL 30 gauge x 5/16 Syrg Insulin 2018-0 Yes [id number] Use as Uni vers Syringe-Nee 3-30 directed ity of dle U-100 00:00: [place] (INSULIN 00 Medical SYRINGE) 1 Branch mL 30 gauge x 5/16 Syrg Insulin 2018-0 Yes [id number] Use as Uni vers Syringe-Nee 3-30 directed ity of dle U-100 00:00: [place] (INSULIN 00 Medical SYRINGE) 1 Branch mL 30 gauge x 5/16 Syrg Insulin 2017-0 Yes [id number] Use as Uni vers Syringe-Nee 3-30 directed ity of dle U-100 00:00: [place] (INSULIN 00 Medical SYRINGE) 1 Branch mL 30 gauge x 5/16 Syrg Insulin 2018-0 Yes [id number] Use as Uni vers Syringe-Nee 3-30 directed ity of dle U-100 00:00: [place] (INSULIN 00 Medical SYRINGE) 1 Branch mL 30 gauge x 5/16 Syrg Insulin 2018-0 Yes [id number] Use as Uni vers Syringe-Nee 3-30 directed ity of dle U-100 00:00: [place] (INSULIN 00 Medical SYRINGE) 1 Branch mL 30 gauge x 5/16 Syrg Insulin 2018-0 Yes [id number] Use as Uni vers Syringe-Nee 3-30 directed ity of dle U-100 00:00: [place] (INSULIN 00 Medical SYRINGE) 1 Branch mL 30 gauge x 5/16 Syrg Insulin 2018-0 Yes [id number] Use as Uni vers Syringe-Nee 3-30 directed ity of dle U-100 00:00: [place] (INSULIN 00 Medical SYRINGE) 1 Branch mL 30 gauge x 5/16 Syrg Insulin 2018-0 Yes [id number] Use as Uni vers Syringe-Nee 3-30 directed ity of dle U-100 00:00: [place] (INSULIN 00 Medical SYRINGE) 1 Branch mL 30 gauge x 5/16 Syrg Insulin 2018-0 Yes [id number] Use as Uni vers Syringe-Nee 3-30 directed ity of dle U-100 00:00: (INSULIN 00 Medical SYRINGE) 1 Branch mL 30 gauge x 5/16 Syrg Insulin Yes [id number] Use as Uni vers Syringe-Nee 3-30 directed ity of dle U-100 00:00: (INSULIN 00 Medical SYRINGE) 1 Branch mL 30 gauge x 5/16 Syrg Insulin 2020- No [id number] Use as Un [place] Syringe-Nee 330 01-09 directed ity of dle U-100 00:00: 00:00 (INSULIN 00 :00 Medical SYRINGE) 1 Branch mL 30 gauge x 5/16 Syrg Insulin 2020- No [id number] Use as Un [place] Syringe-Nee 330 01-09 directed ity of dle U-100 00:00: 00:00 [place] (INSULIN 00 :00 Medical SYRINGE) 1 Branch mL 30 gauge x 5/16 Syrg Atorvastati Atorvastati Yes [place] [address] [facility] Calcium n Calcium [facility] Lexapro Lexapro Yes [facility] [facility] Metoprolol Metoprolol Yes Dada [address] [facility] Tartrate Tartrate Horan with food [facility] Ranexa Ranexa Yes Dada [address] [facility] Insulin Insulin Yes Dada [address] [facility] [address] Aspart Prot Aspart Prot Horan BID [facility] Aspirin Aspirin Yes Dada [address] [facility] Gabapentin Gabapentin Yes Dada [address] [facility] Furosemide Furosemide Yes Dada [address] [facility] Duloxetine Duloxetine Yes Dada [address] [facility] [address] HCl HCl [facility] Xanax Xanax Yes Dada [address] [facility] Clopidogrel Clopidogrel Yes Dada [address] [facility] [address] Bisulfate Bisulfate [facility] Metformin Metformin Yes [...] [facility] Ramer Ramer Yes Dada [address] [facility] [...] Completed Unive rsity of PFIZER VACCINE 00:00:00 [facility] SARS-COV-2 COVID-19 2021-01-17 Completed Unive rsity of PFIZER VACCINE 00:00:00 [facility] SARS-COV-2 COVID-19 2021-01-17 Completed Unive rsity of PFIZER VACCINE 00:00:00 [facility] SARS-COV-2 COVID-19 2021-01-17 Completed Unive rsity of PFIZER VACCINE 00:00:00 [facility] SARS-COV-2 COVID-19 2021-01-17 Completed Unive rsity of PFIZER VACCINE 00:00:00 [facility] SARS-COV-2 COVID-19 2021-01-17 Completed Unive rsity of PFIZER VACCINE 00:00:00 [facility] SARS-COV-2 COVID-19 2021-01-17 Completed Unive rsity of PFIZER VACCINE 00:00:00 [facility] Vital Signs Vital Name Observation Time Observation Value Comments Source Systolic blood 2021-02-12 19:25:00 123 mm[Hg] Univer sity of pressure [facility] Diastolic blood 2021-02-12 19:25:00 80 mm[Hg] Unive rsity of pressure [facility] Heart rate 2021-02-12 19:25:00 87 /min [facility] Body temperature 2021-02-12 19:25:00 36.83 Lucero Univ ersity of [facility] Respiratory rate 2021-02-12 19:25:00 16 /min Univ ersity of [facility] Body height 2021-02-12 19:25:00 162.6 cm [facility] Body weight 2021-02-12 19:25:00 64.864 kg [facility] BMI 2021-02-12 19:25:00 24.55 kg/m2 [facility]i ty of [facility] Oxygen saturation in 2021-02-12 19:25:00 99 /min University of Arterial blood by [facility] Pulse oximetry Branch Systolic blood 2021-02-12 18:15:00 108 mm[Hg] Univer sity of pressure [facility] Diastolic blood 2021-02-12 18:15:00 73 mm[Hg] Unive rsity of pressure [facility] Heart rate 2021-02-12 18:15:00 59 /min [facility] Respiratory rate 2021-02-12 18:15:00 18 /min Univ ersity of [facility] Body height 2021-02-12 18:15:00 162.6 cm [facility] Body weight 2021-02-12 18:15:00 64.864 kg [facility] BMI 2021-02-12 18:15:00 24.55 kg/m2 [facility] Systolic blood 2021-01-17 17:22:00 129 mm[Hg] Univer sity of pressure [facility] Diastolic blood 2021-01-17 17:22:00 83 mm[Hg] Unive rsity of pressure [facility] Heart rate 2021-01-17 17:22:00 85 /min Universi ty of [facility] Body temperature 2021-01-17 17:22:00 36.06 Lucero Univ ers[facility] Respiratory rate 2021-01-17 17:22:00 16 /min Univ ers[facility] Oxygen saturation in 2021-01-17 17:22:00 95 /min University of Arterial blood by [facility] blanquita Pulse oximetry Branch Body height 2021-01-15 21:03:00 162.6 cm [facility] Body weight 2021-01-15 21:03:00 62.46 kg [facility] BMI 2021-01-15 21:03:00 23.64 kg/m2 [facility] Systolic blood 2021-01-15 19:31:00 109 mm[Hg] Univer sity of pressure [facility] Diastolic blood 2021-01-15 19:31:00 71 mm[Hg] Unive rsity of pressure [facility] Heart rate 2021-01-15 19:31:00 88 /min [facility] Respiratory rate 2021-01-15 19:31:00 19 /min Univ ers[facility] Body height 2021-01-15 19:31:00 162.6 cm [facility] Body weight 2021-01-15 19:31:00 62.143 kg [facility] BMI 2021-01-15 19:31:00 23.52 kg/m2 [facility] Oxygen saturation in 2021-01-15 19:31:00 93 /min [facility] Arterial blood by [facility] Pulse oximetry Branch Systolic blood 2021-01-01 16:37:00 118 mm[Hg] Univer sity of pressure [facility] Diastolic blood 2021-01-01 16:37:00 77 mm[Hg] Unive rsity of pressure [facility] Heart rate 2021-01-01 16:37:00 102 /min [facility] Body weight 2021-01-01 16:37:00 61.689 kg [facility] BMI 2021-01-01 16:37:00 23.34 kg/m2 [facility] Oxygen saturation in 2021-01-01 16:37:00 100 /min [facility] Arterial blood by [facility] Pulse oximetry Branch Systolic blood 2020-12-01 15:53:00 123 mm[Hg] Univer sity of pressure [facility] Diastolic blood 2020-12-01 15:53:00 69 mm[Hg] Unive rsity of pressure [facility] Heart rate 2020-12-01 15:53:00 90 /min [facility] Body temperature 2020-12-01 15:53:00 36.22 Lucero Univ [facility] Respiratory rate 2020-12-01 15:53:00 16 /min Univ ers[facility] Oxygen saturation in 2020-12-01 15:53:00 97 /min [facility] Arterial blood by [facility] Pulse oximetry Branch Body height 2020-11-30 14:35:00 162.6 cm [facility] Body weight 2020-11-30 14:35:00 64.411 kg [facility] BMI 2020-11-30 14:35:00 24.37 kg/m2 [facility] Systolic blood 2020-11-13 20:00:00 115 mm[Hg] Univer sity of pressure [facility] Diastolic blood 2020-11-13 20:00:00 77 mm[Hg] Unive rsity of pressure [facility] Heart rate 2020-11-13 20:00:00 82 /min [facility] Respiratory rate 2020-11-13 20:00:00 16 /min Univ [facility] Body height 2020-11-13 20:00:00 162.6 cm [facility] Body weight 2020-11-13 20:00:00 64.728 kg [facility] BMI 2020-11-13 20:00:00 24.49 kg/m2 [facility] Oxygen saturation in 2020-11-13 20:00:00 94 /min [facility] Arterial blood by [facility] Pulse oximetry Branch Systolic blood 2020-10-07 19:37:00 118 mm[Hg] Univer sity of pressure [facility] Diastolic blood 2020-10-07 19:37:00 80 mm[Hg] Unive rsity of pressure [facility] Heart rate 2020-10-07 19:37:00 95 /min [facility] Body weight 2020-10-07 19:37:00 59.875 kg [facility] BMI 2020-10-07 19:37:00 22.65 kg/m2 Universi ty of [facility] Oxygen saturation in 2020-10-07 19:37:00 97 /min University Arterial blood by [facility] Pulse oximetry Branch Heart rate 2020-10-01 20:20:00 60 /min [facility] Systolic blood 2020-10-01 20:20:00 120 mm[Hg] Univer sity of pressure [facility] Diastolic blood 2020-10-01 20:20:00 80 mm[Hg] Unive rsity of pressure [facility] Heart rate 2020-10-01 20:20:00 60 /min [facility] Systolic blood 2020-10-01 20:20:00 120 mm[Hg] Univer sity of pressure [facility] Diastolic blood 2020-10-01 20:20:00 80 mm[Hg] Unive rsity of pressure [facility] Heart rate 2020-10-01 20:20:00 60 /min [facility] Systolic blood 2020-10-01 20:20:00 120 mm[Hg] Univer sity of pressure [facility] Diastolic blood 2020-10-01 20:20:00 80 mm[Hg] Unive rsity of pressure [facility] Heart rate 2020-10-01 20:20:00 60 /min [facility] Systolic blood 2020-10-01 20:20:00 120 mm[Hg] Univer sity of pressure [facility] Diastolic blood 2020-10-01 20:20:00 80 mm[Hg] Unive rsity of pressure [facility] Heart rate 2020-10-01 20:20:00 60 /min [facility] Systolic blood 2020-10-01 20:20:00 120 mm[Hg] Univer sity of pressure [facility] Diastolic blood 2020-10-01 20:20:00 80 mm[Hg] Unive rsity of pressure [facility] Heart rate 2020-10-01 20:20:00 60 /min [facility] Systolic blood 2020-10-01 20:20:00 120 mm[Hg] Univer sity of pressure [facility] Diastolic blood 2020-10-01 20:20:00 80 mm[Hg] Unive rsity of pressure [facility] Systolic blood 2020-09-07 20:47:00 104 mm[Hg] Univer sity of pressure [facility] Diastolic blood 2020-09-07 20:47:00 62 mm[Hg] Unive rsity of pressure [facility] Heart rate 2020-09-07 20:47:00 88 /min [facility] Body temperature 2020-09-07 20:47:00 36.17 Lucero Univ ersity of [facility] Respiratory rate 2020-09-07 20:47:00 18 /min Univ ersity of [facility] Oxygen saturation in 2020-09-07 20:47:00 99 /min [facility] Arterial blood by [facility] Pulse oximetry Branch Body height 2020-09-05 07:40:00 162.6 cm [facility] Body weight 2020-09-05 07:40:00 60.737 kg [facility] BMI 2020-09-05 07:40:00 22.97 kg/m2 [facility] Systolic blood 2020-09-04 21:15:00 130 mm[Hg] Univer sity of pressure [facility] Diastolic blood 2020-09-04 21:15:00 83 mm[Hg] Unive rsity of pressure [facility] Heart rate 2020-09-04 21:15:00 85 /min [facility] Respiratory rate 2020-09-04 21:15:00 19 /min Univ ers[facility] Body height 2020-09-04 21:15:00 162.6 cm [facility] Body weight 2020-09-04 21:15:00 65.318 kg [facility] BMI 2020-09-04 21:15:00 24.72 kg/m2 [facility] Systolic blood 2020-05-08 19:29:00 128 mm[Hg] Univer sity of pressure [facility] Diastolic blood 2020-05-08 19:29:00 80 mm[Hg] Unive rsity of pressure [facility] Heart rate 2020-05-08 19:29:00 82 /min [facility] Body temperature 2020-05-08 19:29:00 36.39 Lucero [facility] Body height 2020-05-08 19:29:00 162.6 cm [facility] Body weight 2020-05-08 19:29:00 68.04 kg [facility] BMI 2020-05-08 19:29:00 25.75 kg/m2 [facility] Systolic blood 2020-04-03 19:48:00 104 mm[Hg] Univer sity of pressure [facility] Diastolic blood 2020-04-03 19:48:00 66 mm[Hg] Unive rsity of pressure [facility] Heart rate 2020-04-03 19:48:00 81 /min [facility] Body temperature 2020-04-03 19:48:00 36.72 Lucero [facility] Respiratory rate 2020-04-03 19:48:00 18 /min Univ [facility] Body height 2020-04-03 19:48:00 162.6 cm [facility] Body weight 2020-04-03 19:48:00 69.4 kg [facility] BMI 2020-04-03 19:48:00 26.26 kg/m2 [facility] Systolic blood 2020-01-10 21:55:00 126 mm[Hg] Univer sity of pressure [facility] Diastolic blood 2020-01-10 21:55:00 84 mm[Hg] Unive rsity of pressure [facility] Heart rate 2020-01-10 21:55:00 93 /min [facility] Respiratory rate 2020-01-10 21:55:00 16 /min Univ [facility] Body height 2020-01-10 21:55:00 162.6 cm [facility] Body weight 2020-01-10 21:55:00 72.303 kg [facility] BMI 2020-01-10 21:55:00 27.36 kg/m2 [facility] Systolic blood 2019-10-11 20:16:00 124 mm[Hg] Univer sity of pressure [facility] Diastolic blood 2019-10-11 20:16:00 77 mm[Hg] Unive rsity of pressure [facility] Heart rate 2019-10-11 20:16:00 92 /min [facility] Body temperature 2019-10-11 20:16:00 36.89 Lucero Univ ersity of [facility] Respiratory rate 2019-10-11 20:16:00 18 /min Univ ersity of [facility] Body height 2019-10-11 20:16:00 162.6 cm [facility] Body weight 2019-10-11 20:16:00 80.74 kg [facility] BMI 2019-10-11 20:16:00 30.55 kg/m2 Universi ty of [facility] Heart rate 2019-08-16 16:31:00 90 /min Universi ty of [facility] Respiratory rate 2019-08-16 16:31:00 18 /min Univ ersity of [facility] Oxygen saturation in 2019-08-16 16:31:00 97 /min [facility] of Arterial blood by [facility] Pulse oximetry Branch Systolic blood 2019-08-16 16:17:00 110 mm[Hg] Univer sity of pressure [facility] Diastolic blood 2019-08-16 16:17:00 58 mm[Hg] Unive rsity of pressure [facility] Body temperature 2019-08-16 16:17:00 36 Lucero Univ ersity of [facility] Body weight 2019-08-16 08:21:00 79.833 kg [facility] BMI 2019-08-16 08:21:00 30.21 kg/m2 [facility] Body height 2019-08-15 13:32:00 162.6 cm [facility] Systolic blood 2019-08-05 16:11:00 145 mm[Hg] Univer sity of pressure [facility] Diastolic blood 2019-08-05 16:11:00 88 mm[Hg] Unive rsity of pressure [facility] Heart rate 2019-08-05 16:11:00 92 /min Universi ty of [facility] Respiratory rate 2019-08-05 16:11:00 19 /min Univ ersity of [facility] Body height 2019-08-05 16:11:00 162.6 cm [facility] Body weight 2019-08-05 16:11:00 80.513 kg Universi ty [facility] BMI 2019-08-05 16:11:00 30.47 kg/m2 Universi ty [facility] Oxygen saturation in 2019-08-05 16:11:00 99 /min [facility] of Arterial blood by [facility] Pulse oximetry Branch Systolic blood 2019-02-04 15:08:00 117 mm[Hg] Univer sity of pressure [facility] Diastolic blood 2019-02-04 15:08:00 83 mm[Hg] Unive rsity of pressure [facility] Heart rate 2019-02-04 15:08:00 80 /min [facility]i ty of [facility] Respiratory rate 2019-02-04 15:08:00 20 /min [facility] height 2019-02-04 15:08:00 162.6 cm Universi [facility] Oxygen saturation in 2019-02-04 15:08:00 99 /min [facility] of Arterial blood by [facility] Pulse oximetry Branch Systolic blood 2019-01-04 19:51:00 124 mm[Hg] Univer sity of pressure [facility] Diastolic blood 2019-01-04 19:51:00 83 mm[Hg] Unive rsity of pressure [facility] Heart rate 2019-01-04 19:51:00 79 /min Universi ty [facility] Respiratory rate 2019-01-04 19:51:00 16 /min [facility] Body height 2019-01-04 19:51:00 162.6 cm [facility] Body weight 2019-01-04 19:51:00 76.204 kg [facility] BMI 2019-01-04 19:51:00 28.84 kg/m2 [facility] Procedures Procedure Date / Time Performing Clinician Source Performed EXTERNAL PROVIDER RECORDS 2021-05-13 06:01:00 Doctor Unassigned, [facility] [place] [facility] POCT GLUCOSE (AUTOMATED) 2021-02-12 21:28:00 Fabby Nieves [facility] BASIC METABOLIC PANEL (NA, 2021-02-12 20:36:00 Fabby Nieves [facility] K, CL, CO2, GLUCOSE, BUN, Medica l Branch CREATININE, [place]) CBC WITH DIFF 2021-02-12 20:36:00 Fabby Nieves [facility] URINALYSIS 2021-02-12 20:36:00 Fabby Nieves [facility] POCT GLUCOSE (AUTOMATED) 2021-02-12 19:33:00 Doctor Unassigned, [facility] [place] [facility] CONSENT/REFUSAL FOR 2021-02-12 19:10:35 Doctor Unassigned, [facility] DIAGNOSIS AND TREATMENT [place] [facility] POCT GLUCOSE (AUTOMATED) 2021-01-17 17:24:00 Celso Duran [facility] POCT GLUCOSE (AUTOMATED) 2021-01-17 12:38:00 Celso Duran [facility] BASIC METABOLIC PANEL (NA, 2021-01-17 09:06:00 Priyanka Haney [facility] K, CL, CO2, GLUCOSE, BUN, Medica l Branch CREATININE, CA) CBC WITH DIFF 2021-01-17 09:06:00 Priyanka Haney [facility] POCT GLUCOSE (AUTOMATED) 2021-01-16 21:11:00 Celso Duran [facility] POCT GLUCOSE (AUTOMATED) 2021-01-16 16:41:00 Celso Duran [facility] POCT GLUCOSE (AUTOMATED) 2021-01-16 12:48:00 Celso Duran [facility] CBC WITH DIFF 2021-01-16 08:25:00 Priyanka Haney [facility] POCT GLUCOSE (AUTOMATED) 2021-01-16 08:24:00 Celso Duran [facility] MAGNESIUM 2021-01-16 08:17:00 Priyanka Haney [facility] BASIC METABOLIC PANEL (NA, 2021-01-16 08:17:00 Priyanka Haney [facility] K, CL, CO2, GLUCOSE, BUN, Medica l Branch CREATININE, [place]) LIPID PANEL ([id number])(TOTAL 2021-01-16 08:17:00 Priyanka Haney [facility] CHOLESTEROL, Medical Branch TRIGLYCERIDES, HDL) LOW-DENSITY LIPOPROTEIN, 2021-01-16 08:17:00 Priyanka Haney [facility] DIRECT [facility] POCT GLUCOSE (AUTOMATED) 2021-01-16 03:51:00 Celso Duran [facility] URINE CULTURE 2021-01-16 01:56:00 Priyanka Haney [facility] POCT GLUCOSE (AUTOMATED) 2021-01-16 01:06:00 Celso Duran [facility] URINALYSIS 2021-01-15 23:47:00 Priyanka Haney [facility] BLOOD CULTURE SCREEN 2021-01-15 23:39:00 Priyanka Haney [facility] PHOSPHORUS 2021-01-15 23:30:00 Lyndon Priyanka Fauzia [facility] TROPONIN I 2021-01-15 23:30:00 Lyndon Priyanka Fauzia [facility] THYROID STIMULATING 2021-01-15 23:30:00 Priyanka Haney [facility] HORMONE [facility] HEPATIC FUNCTION PANEL 2021-01-15 23:30:00 Priyanka Haney [facility] ([id number]) (ALB,T.PRO,BILI Medical Branch T,BU/BC,ALT,AST,ALK PHOS) GLYCOSYLATED HEMOGLOBIN 2021-01-15 23:30:00 Priyanka Haney [facility] (A1C) [facility] BLOOD CULTURE SCREEN 2021-01-15 23:27:00 Priyanka Haney [facility] POCT GLUCOSE (AUTOMATED) 2021-01-15 22:30:00 Celso Duran [facility] COVID-19 (ID NOW RAPID 2021-01-15 20:44:00 Priyanka Haney [facility] TESTING) Medical Branch LAB ONLY COVID 2021-01-15 20:44:00 Priyanka Haney [facility] INTERPRETATION [facility] NOTICE OF PRIVACY 2021-01-15 20:25:44 Doctor Unassigned, [facility] PRACTICES [place] [facility] CONSENT/REFUSAL FOR 2021-01-15 20:25:23 Doctor Unassigned, [facility] DIAGNOSIS AND TREATMENT [place] [facility] ASSIGNMENT OF BENEFITS 2021-01-15 20:24:58 Doctor Unassigned, [facility] [place] [facility] POCT HEMOGLOBIN A1C TEST 2021-01-01 16:39:00 [facility] PO[facility] GLUCOSE (AUTOMATED) 2020-12-01 17:39:00 [facility] 2020-12-01 10:29:00 Vish [facility] BASIC METABOLIC PANEL (NA, 2020-12-01 10:29:00 Anatoly Wahl [facility] K, CL, CO2, GLUCOSE, BUN, Medica l Branch CREATININE, CA) CBC WITH DIFF 2020-12-01 10:29:00 Vish [facility] POCT GLUCOSE (AUTOMATED) 2020-12-01 02:29[facility] 2020-12-01 00:50:00 Miguel Luo [facility] POCT GLUCOSE (AUTOMATED) 2020-11-30 23:07[facility]00 [facility] LOW RANGE 2020-11-30 22:17:00 Gregory [facility] POCT ACT LOW RANGE 2020-11-30 21:55:00 Gregory [facility] BASIC METABOLIC PANEL (NA, 2020-11-30 14:26:00 Lily Franks [facility] K, CL, CO2, GLUCOSE, BUN, Medica l Branch CREATININE, CA) COVID-19 (ID NOW RAPID 2020-11-30 13:21:00 Brown Woodward [facility] TESTING) Medical Branch LAB ONLY COVID 2020-11-30 13:21:00 Brown Woodward [facility] INTERPRETATION [facility] POCT GLUCOSE(AGE >30DAYS) 2020-10-07 19:39:00 Lakshmi Woodard [facility] POCT GLUCOSE (AUTOMATED) 2020-09-07 22:28:00 Jay England [facility] POCT GLUCOSE (AUTOMATED) 2020-09-07 20:47:00 Jay England [facility] POCT GLUCOSE (AUTOMATED) 2020-09-07 20:12:00 Jay England [facility] POCT GLUCOSE (AUTOMATED) 2020-09-07 16:43:00 Jay England [facility] CAROTID DUPLEX BILATERAL - 2020-09-07 15:09:10 Lily Franks [facility] BY VASCULAR LAB [facility] POCT GLUCOSE (AUTOMATED) 2020-09-07 12:50:00 Jay England [facility] COMP. METABOLIC PANEL 2020-09-07 09:28:00 Elyse Aparicio [facility] ([id number]) [facility] CBC WITH DIFF 2020-09-07 09:28:00 Jay England [facility] POCT GLUCOSE (AUTOMATED) 2020-09-07 01:42:00 Jay England [facility] CORTISOL STIMULATION 60 2020-09-06 23:08:00 Jay England [facility] CORTISOL STIMULATION 30 2020-09-06 22:36:00 Jay England [facility] CORTISOL STIMULATION 0 MIN 2020-09-06 22:05:00 Jay England [facility] POCT GLUCOSE (AUTOMATED) 2020-09-06 21:04:00 Jay England [facility] POCT GLUCOSE (AUTOMATED) 2020-09-06 19:57:00 Jay England [facility] POCT GLUCOSE (AUTOMATED) 2020-09-06 16:40:00 Jay England [facility] POCT GLUCOSE (AUTOMATED) 2020-09-06 12:45:00 [facility] 2020-09-06 11:16:00 Jay England [facility] MAGNESIUM 2020-09-06 11:16:00 Alessandra [facility] CORTISOL AM 2020-09-06 11:16:00 Alessandra [facility] COMP. METABOLIC PANEL 2020-09-06 11:16:00 Elyse Aparicio [facility] ([id number]) Medical Branch CBC WITH DIFF 2020-09-06 11:16:00 Alessandra jonas [facility] N-TERMINAL PRO-BNP 2020-09-06 11:16:00 Alessandra jonas [facility] POCT GLUCOSE (AUTOMATED) 2020-09-06 01:07:00 [facility] [facility] TROPONIN I 2020-09-06 00:13:00 Alessandra jonas [facility] SEDIMENTATION RATE 2020-09-06 00:13:00 Jay England [facility] POCT GLUCOSE (AUTOMATED) 2020-09-05 21:44:00 [facility] ([facility]OMATED) 2020-09-05 16:54:00 [facility]SE (AUTOMATED) 2020-09-05 13:47:00 [facility] ABDOMEN PELVIS WO 2020-09-05 11:16:59 Elyse Aparicio [facility] CONTRAST [facility] CREATINE KINASE 2020-09-05 10:01:00 Alessandra jonas [facility] MAGNESIUM 2020-09-05 10:01:00 Alessandra jonas [facility] VITAMIN B12, LEVEL 2020-09-05 10:01:00 Elyse Aparicio [facility] TROPONIN I 2020-09-05 10:01:00 Alessandra jonas [facility] COMP. METABOLIC PANEL 2020-09-05 10:01:00 Elyse Aparicio [facility] ([id number]) [facility] LIPID PANEL ([id number])(TOTAL 2020-09-05 10:01:00 Jay [facility] CHOLESTEROL, [facility] TRIGLYCERIDES, HDL) CBC WITH DIFF 2020-09-05 10:01:00 Alessandra [facility] GLYCOSYLATED HEMOGLOBIN 2020-09-05 10:01:00 Alessandra [facility] (A1C) [facility] PROTHROMBIN TIME / INR 2020-09-05 10:01:00 Alessandra jonas [facility] N-TERMINAL PRO-BNP 2020-09-05 10:01:00 Alessandra jonas [facility] VITAMIN D, 25-OH 2020-09-05 10:01:00 Alessandra [facility] PROCALCITONIN 2020-09-05 10:01:00 Alessandra [facility] URINE CULTURE 2020-09-05 05:12:00 Anastasia Giraldo [facility] COVID-19 (ID NOW RAPID 2020-09-05 05:12:00 Anastasia Giraldo [facility] TESTING) [facility] POCT GLUCOSE (AUTOMATED) 2020-09-05 04:24:00 Anastasia [facility] VENOUS BLOOD 2020-09-05 02:29:00 [facility]ast[facility] GAS [facility] PHOSPHORUS 2020-09-05 02:22:00 Alessandra jonas [facility] LIPASE 2020-09-05 02:22:00 Anastasia Giraldo [facility] MAGNESIUM 2020-09-05 02:22:00 Alessandra jonas [facility] TROPONIN I 2020-09-05 02:22:00 Anastasia Giraldo [facility] THYROID STIMULATING 2020-09-05 02:22:00 Elyse Aparicio [facility] HORMONE [facility] COMP. METABOLIC PANEL 2020-09-05 02:22:00 Anastasia Giraldo [facility] ([id number]) [facility] CBC WITH DIFF 2020-09-05 02:22:00 Anastasia Giraldo [facility] URINALYSIS 2020-09-05 02:22:00 Anastasia Giraldo [facility] N-TERMINAL PRO-BNP 2020-09-05 02:22:00 Anastasia Giraldo [facility] POCT GLUCOSE (AUTOMATED) 2020-09-05 01:56:00 Doctor Juan Manuel, [facility] Name [facility] NOTICE OF PRIVACY 2020-09-05 01:52:18 Doctor Juan Manuel, [facility] PRACTICES [facility] CONSENT/REFUSAL FOR 2020-09-05 01:51:48 Doctor Juan Manuel [facility] DIAGNOSIS AND TREATMENT [facility] CONSENT/REFUSAL FOR 2020-09-04 22:21:52 Doctor Juan Manuel, [facility] DIAGNOSIS AND TREATMENT [facility] POCT HEMOGLOBIN A1C TEST 2020-09-04 00:00:00 Anatoly Villegas [facility] EXTERNAL PROVIDER RECORDS 2020-08-03 06:01:00 Doctor Juan Manuel, [facility] XR LUMBAR SPINE 4 VW 2020-05-08 21:19:59 Rashad Costa [facility] XR HIPS 2 VW LEFT 2020-05-08 21:19:59 Rashad Costa [facility] ASSIGNMENT OF BENEFITS 2020-05-08 20:39:58 Doctor Juan Manuel, [facility] URINE CULTURE 2020-04-03 20:18:00 Adum, Sisi Montero De Berry o f [facility] GC & CHLAMYDIA AMPLIFIED 2020-04-03 20:18:00 Adum, Sisi Montero [facility] GALV ONLY - VAGINAL 2020-04-03 20:18:00 Adum, Sisi Montero [facility] PATHOGENS BY NUCLEIC ACID [facility] TESTING TRICHOMONAS AMPLIFIED 2020-04-03 20:18:00 Adum, Sisi Montero [facility] POCT URINALYSIS W/O 2020-04-03 00:00:00 Adum, Sisi Montero [facility] SPECIFIC GRAVITY [facility] POCT HEMOGLOBIN A1C TEST 2020-01-10 00:00:00 Anatoly Villegas [facility] HOSPITAL ADMISSION MISC - 2019-12-10 05:01:00 Doctor Juan Manuel, [facility] MEDICARE PATIENTS RIGHTS [facility] IMPORTANT MESSAGE BI SCREENING MAMMOGRAM 2019-11-01 17:35:15 Ernst Weeks [facility] BILATERAL Medical Branch CONSENT/REFUSAL FOR 2019-11-01 16:33:32 Doctor Unassigned, [facility] DIAGNOSIS AND TREATMENT [facility] ASSIGNMENT OF BENEFITS 2019-11-01 16:33:15 Doctor Unassmarcela, Un [facility] IMMTRAC2 CONSENT 2019-10-11 05:01:00 Doctor Unassmarcela, [facility] AGREEMENTS AUTHORIZATIONS 2019-08-30 05:01:00 Doctor Unassigned, [facility] AND IRREVOCABLE [facility] ASSIGNMENTS (FORM 2001) POCT GLUCOSE (AUTOMATED) 2019-08-16 13:02:00 [facility] Romano [facility] PO[facility] GLUCOSE (AUTOMATED) 2019-08-16 09:53:00 Rhianna Romano Uni versity [facility] MAGNESIUM 2019-08-16 09:52:00 Izaiah Miles De Berry o f [facility] BASIC METABOLIC PANEL (NA, 2019-08-16 09:52:00 Izaiah Miles [facility] K, CL, CO2, GLUCOSE, BUN, Medica l Branch CREATININE, CA) CBC WITH DIFFERENTIAL 2019-08-16 09:52:00 Izaiah Miles [facility] POCT GLUCOSE (AUTOMATED) 2019-08-16 07:10:00 Rhianna Romano Uni versity [facility] POCT GLUCOSE (AUTOMATED) 2019-08-16 05:02:00 Rhianna Romano Uni versity [facility] CT HEAD WO CONTRAST 2019-08-16 00:49:18 Shanta Spring [facility] POCT GLUCOSE (AUTOMATED) 2019-08-15 22:14:00 Rhianna Romano Uni versity of [facility] POCT GLUCOSE (AUTOMATED) 2019-08-15 20:40:00 Rhianna Romano Uni versity of [facility] ACTIVATED PARTIAL THRMPLAS 2019-08-15 20:35:00 Izaiah Miles [facility] POCT GLUCOSE (AUTOMATED) 2019-08-15 16:53:00 Rhianna Romano Uni versity [facility] POCT ACT LOW RANGE 2019-08-15 15:35:00 Rhianna Romano [facility] POCT ACT LOW RANGE 2019-08-15 15:14:00 Rhianna Romano [facility] POCT ACT LOW RANGE 2019-08-15 14:37:00 Rhianna Romano [facility] POCT ACT LOW RANGE 2019-08-15 14:20:00 Rhianna Romano [facility] MAGNESIUM 2019-08-15 09:53:00 Izaiah Miles De Berry o [facility] BASIC METABOLIC PANEL (NA, 2019-08-15 09:53:00 Izaiah Miles [facility] K, CL, CO2, GLUCOSE, BUN, Medica l Branch CREATININE, CA) CBC WITH DIFFERENTIAL 2019-08-15 09:53:00 Izaiah Miles [facility] ACTIVATED PARTIAL THRMPLAS 2019-08-15 09:53:00 Shanta Spring niversyue of [facility] POCT GLUCOSE (AUTOMATED) 2019-08-15 09:47:00 Rhianna Romano Uni versity of [facility] POCT GLUCOSE (AUTOMATED) 2019-08-15 06:33:00 Rhianna Romano Uni versity of [facility] POCT GLUCOSE (AUTOMATED) 2019-08-15 03:08:00 Rhianna [facility] BASIC METABOLIC PANEL (NA, 2019-08-15 01:48:00 Izaiah Miles [facility] K, CL, CO2, GLUCOSE, BUN, Medica l Branch CREATININE, CA) ACTIVATED PARTIAL THRMPLAS 2019-08-15 01:48:00 Shanta Springersyue of [facility] POCT GLUCOSE (AUTOMATED) 2019-08-15 01:46:00 Rhianna Romano Uni versity of [facility] POCT GLUCOSE (AUTOMATED) 2019-08-14 22:29:00 Bandar Romanomad Uni versity of [facility] POCT GLUCOSE (AUTOMATED) 2019-08-14 20:42:00 Rhianna Romano Uni versity of [facility] ACTIVATED PARTIAL THRMPLAS 2019-08-14 19:14:00 Abrol, [facility] POCT GLUCOSE (AUTOMATED) 2019-08-14 16:43:00 Rhianna Romano [facility] ECHO ROUTINE W/DOPPLER 2019-08-14 14:10:31 Izaiah Miles [facility] POCT GLUCOSE (AUTOMATED) 2019-08-14 13:50:00 Rhianna Romano [facility] GALV ONLY - INFLUENZA A B 2019-08-14 13:42:00 [facility] EKG-12 LEAD 2019-08-14 13:11:24 Juan Antonio Capps [facility] ACTIVATED PARTIAL THRMPLAS 2019-08-14 10:04:00 Shanta Spring [facility] MAGNESIUM 2019-08-14 10:03:00 Izaiah Miles [facility] BASIC METABOLIC PANEL (NA, 2019-08-14 10:03:00 Izaiah Miles [facility] K, CL, CO2, GLUCOSE, BUN, Medica l Branch CREATININE, CA) CBC WITH DIFFERENTIAL 2019-08-14 10:03:00 Izaiah Miles [facility] POCT GLUCOSE (AUTOMATED) 2019-08-14 01:18:00 Rhianna Romano [facility] POCT GLUCOSE (AUTOMATED) 2019-08-13 23:08:00 Rhianna Romaon [facility] ACTIVATED PARTIAL THRMPLAS 2019-08-13 22:43:00 Shanta Spring [facility] POCT GLUCOSE (AUTOMATED) 2019-08-13 19:28:00 Rhianna Romano [facility] CORONARY ANGIOGRAPHY 2019-08-13 16:40:26 Doctor Unassigned, [facility] [place] [facility] TROPONIN I 2019-08-13 13:14:00 Saw [facility] POCT GLUCOSE (AUTOMATED) 2019-08-13 13:12:00 Rhianna Romano [facility] XR CHEST 1 VW 2019-08-13 08:08:00 [facility] 2019-08-13 05:24:00 Wen Graf [facility] TROPONIN I 2019-08-13 05:24:00 Saw [facility] BASIC METABOLIC PANEL (NA, 2019-08-13 05:24:00 Shanta Spring [facility] K, CL, CO2, GLUCOSE, BUN, Medica l Branch CREATININE, CA) CBC WITH DIFFERENTIAL 2019-08-13 05:24:00 Izaiah Miles [facility] GLYCOSYLATED HEMOGLOBIN 2019-08-13 05:24:00 [facility] PROTHROMBIN TIME / INR 2019-08-13 05:24:00 Shanta Spring [facility] ACTIVATED PARTIAL THRMPLAS 2019-08-13 05:24:00 Shanta Spring [facility] SAGE [facility] N-TERMINAL PRO-BNP 2019-08-13 05:24:00 [facility] 2019-08-13 04:39:22 Rhianna Romano [facility] EXTERNAL PROVIDER - ADC 2019-08-05 05:01:00 Doctor Juan Manuel, [facility] CARDIOLOGY [facility] NOTICE OF BILLING 2019-02-04 14:40:05 Doctor Juan Manuel, [facility] PRACTICES FOR MEDICARE [facility] PATIENTS NO SHOW OR MISSED 2019-01-04 19:28:18 Doctor Juan Manuel, [facility] APPOINTMENT POLICY [facility] h ACKNOWLEDGEMENT REFERRAL- REQUEST/RESPONSE 2018-12-20 05:01:00 Doctor Juan Manuel , [facility] Name Medical Branch PATIENT CORRESPONDENCE 2018-12-06 05:01:00 Doctor Juan Manuel, [facility] (LETTERS, USPS [facility] DOCUMENTATION) Plan of Care Planned Activity Planned Date Details Comments Source Future Scheduled 2022 Screening for [facility] Test 00:00:00 malignant neoplasm of Medica l Branch colon (procedure) [code = 883825173] Future Scheduled 2022 Screening for [facility] Test 00:00:00 malignant neoplasm of Medica l Branch colon (procedure) [code = 661596187] Future Scheduled 2021-09-07 Creatinine [facility] Test 00:00:00 measurement Medical Branch (procedure) [code = 20818757] Future Scheduled 2021-09-07 Creatinine [facility] Test 00:00:00 measurement Medical Branch (procedure) [code = 89310656] Future Scheduled 2021-09-05 Calculated low [facility] Test 00:00:00 density lipoprotein Medical Branch cholesterol level (procedure) [code = 488971755] Future Scheduled 2021-09-05 Calculated low [facility] Test 00:00:00 density lipoprotein Medical Branch cholesterol level (procedure) [code = 200938429] Future Scheduled 2021-05-08 Depression screening [facility] Test 00:00:00 (procedure) [code = Medical Branch 723849082] Future Scheduled 2021-05-08 Depression screening [facility] Test 00:00:00 (procedure) [code = Medical Branch 965222814] Future Scheduled 2021-03-07 Hemoglobin A1c [facility] Test 00:00:00 measurement Medical Branch (procedure) [code = 41995359] Future Scheduled 2021-03-07 Hemoglobin A1c [facility] Test 00:00:00 measurement Medical Branch (procedure) [code = 59568644] Future Scheduled 2021-01-27 INFLUENZA VACCINE [facility] Test 00:00:00 (Season Ended) [code Medical Branch = INFLUENZA VACCINE (Season Ended)] Future Scheduled 2021-01-27 INFLUENZA VACCINE [facility] Test 00:00:00 (Season Ended) [code Medical Branch = INFLUENZA VACCINE (Season Ended)] Future Scheduled 2020-10-31 Screening for [facility] Test 00:00:00 malignant neoplasm of Medica l Branch breast (procedure) [code = 803106978] Future Scheduled 2020-10-31 Screening for [facility] Test 00:00:00 malignant neoplasm of Medica l Branch breast (procedure) [code = 006823304] Future Scheduled 2020-09-25 Screening for [facility] Test 00:00:00 malignant neoplasm of Medica l Branch cervix (procedure) [code = 674130408] Future Scheduled 2020-09-25 Screening for [facility] Test 00:00:00 malignant neoplasm of Medica l Branch cervix (procedure) [code = 716405499] Future Scheduled 2020-05-10 Diabetic foot [facility] Test 00:00:00 examination Medical Branch (regime/therapy) [code = 158946528] Future Scheduled 2020-05-10 Diabetic foot [facility] Test 00:00:00 examination Medical Branch (regime/therapy) [code = 451125474] Future Scheduled 2019-09-01 Microalbumin [facility] Test 00:00:00 measurement, urine, Medical Branch quantitative (procedure) [code = 256459673] Future Scheduled 2019-09-01 Microalbumin [facility] Test 00:00:00 measurement, urine, Medical Branch quantitative (procedure) [code = 762672604] Future Scheduled 1991 DTaP,Tdap,and Td [facility] [place] Test 00:00:00 Vaccines (1 - Tdap) Medical Branch [code = DTaP,Tdap,and Td Vaccines (1 - Tdap)] Future Scheduled 1991 DTaP,Tdap,and Td [facility] [place] Test 00:00:00 Vaccines (1 - Tdap) Medical Branch [code = DTaP,Tdap,and Td Vaccines (1 - Tdap)] Future Scheduled 1990 Hepatitis C screening [facility] [place] Test 00:00:00 (procedure) [code = Medical Branch 853061152] Future Scheduled 1990 Hepatitis C screening [facility] Test 00:00:00 (procedure) [code = Medical Branch 604721389] Future Scheduled 1988 SARS-CoV-2 (COVID-19) [facility] Test 00:00:00 Vaccine (1) [code = Medical Branch SARS-CoV-2 (COVID-19) Vaccine (1)] Future Scheduled 1988 SARS-CoV-2 (COVID-19) [facility] Test 00:00:00 Vaccine (1) [code = Medical Branch SARS-CoV-2 (COVID-19) Vaccine (1)] Future Scheduled 1982 Examination of retina [facility] [place] Test 00:00:00 (procedure) [code = Medical Branch 492554555] Future Scheduled 1982 Examination of retina [facility] [place] Test 00:00:00 (procedure) [code = Medical Branch 730147951] Future Scheduled 1978 P[facility]UMOCOCCAL 0-64 [facility] YEARS COMBINED SERIES Medica l Branch (1 of 1 - PPSV23) [code = PNEUMOCOCCAL 0-64 YEARS COMBINED SERIES (1 of 1 - PPSV23)] Future Scheduled 1978 PNEUMOCOCCAL 0-64 Univer sity [facility] Test 00:00:00 YEARS COMBINED SERIES Medica l Branch (1 of 1 - PPSV23) [code = PNEUMOCOCCAL 0-64 YEARS COMBINED SERIES (1 of 1 - PPSV23)] Encounters Start End Encounter Admission Attending Care Care Encounter Source Date/Time Date/Time Type Type Clinicians Facility Department ID 2021-03-29 Emergency [facility] [id number] Univers 23:28:09 ity of [facility] 2021-03-28 Emergency X [facility] [id number] Univers 11:58:59 ity of [facility] 2021-03-28 Emergency [facility] [id number] Univers 11:58:17 ity of [facility] 2021-03-26 Emergency [facility] [id number] Univers 12:39:58 ity of [facility] 2021-07-09 2021-07-09 Outpatient R MARK [facility] [id number] Univers 13:30:00 13:30:00 ANATOLY [id number] ity of [facility] 2021-06-21 2021-06-21 [facility] [id number]-20 Univers 16:00:00 16:00:00 WONDIFUL [id number] ity o f [facility] 2021-06-21 2021-06-21 [facility] [id number] Univers 16:00:00 16:00:00 WONDIFUL ity o f [facility] 2021-05-15 2021-05-15 [facility] [id number] Univers 00:00:00 00:00:00 Wondiful A HEALTH [id number] ity [facility] [id number] Raffy as PROFESSIO [phone] Mi dical [place] [address] Branch OFFICE BUILDING ONE 2021-05-13 2021-05-13 Orders Doctor VAISHALI [id number] Univers 00:00:00 00:00:00 Only Unassigned, AIDA [id number] ity of [place] [facility] [id number] Raffy as [phone] [facility] 009 Branch 2021-02-12 2021-02-12 Emergency [facility] [id number] Univers 14:34:00 17:16:00 Fabby Hawkins [id number] [id number] [phone] [facility] 084 Branch 2021-02-12 2021-02-12 Office [facility] [id number] Univers 13:04:40 15:13:23 Visit [facility] [id number] it y of [place] [id number] Raffy as Charly?Blea [phone] [address] Medical Office [facility] 2021-02-12 2021-02-12 Outpatient [facility] [id number] Univers 13:00:00 13:00:00 [facility] [id number] ity [facility] 2021-02-12 2021-02-12 Outpatient [facility] [id number] Univers 13:00:00 13:00:00 [facility] ity [facility] 2021-01-19 2021-01-19 Transition Matthew Daniel [id number] Univers 00:00:00 00:00:00 of Veronika Mata [id number] it [id number] [phone] [facility] 403 Branch 2021-01-15 2021-01-17 Hospital Roger [facility] [id number] Univers 15:17:00 13:06:00 Encounter Celso [place] [id number] [id number] [phone] [facility] 081 Branch 2021-01-15 2021-01-15 Office [facility] [id number] Univers 14:09:25 15:11:21 Visit Lily [place] [id number] [id number] [phone] Mi dicnell [facility] 059 [facility] 2021-01-15 2021-01-15 Outpatient R GREGORY, [facility] [id number] Univers 14:40:00 14:40:[id number] [facility] 2021-01-15 2021-01-15 Outpatient R GREGORY, [facility] [id number] Univers 14:40:00 14:40:[address] [facility] 2021-01-01 2021-01-01 Office [facility] [id number] Univers 11:28:43 12:58:14 Visit Anatoly [place] [id number] i ty kranthi [id number] [phone] [facility] 220 [facility] 2021-01-01 2021-01-01 Outpatient [facility] [id number] Univers 11:30:00 11:30:00 ANATOLY [id number] [facility] 2021-01-01 2021-01-01 Outpatient R [facility] [id number] Univers 11:30:00 11:30:00 ANATOLY [facility] 2020-12-18 2020-12-18 [facility] [id number] Univers 00:00:00 00:00:00 Wondiful A Health [id number] ity kranthi [place] [id number] Raffy as Professio [phone] Mi dicnell [facility] 044 [place] [address] 2020-12-02 2020-12-02 Outpatient [facility] [id number] Univers 16:00:00 16:00:[id number] [facility] 2020-12-02 2020-12-02 Outpatient [facility] [id number] Univers 16:00:00 16:00:00 LILY ity o f [facility] 2020-11-30 2020-12-01 [facility] Lily Franks [id number] Univers 17:33:00 15:15:00 Encounter Ra [place] Aida 350.1.1 3.10 [facility] [id number] .686 [facility] [phone] [id number] Branch 2020-12-01 2020-12-01 Outpatient [facility] [id number]-20 Univers 14:00:00 14:00:00 WONDIFUL [id number] ity o f [facility] 2020-12-01 2020-12-01 Outpatient [facility] [id number] Univers 14:00:00 14:00:00 WONDIFUL ity o f [facility] 2020-11-30 2020-11-30 Outpatient [facility] [id number] Univers 08:00:00 08:00:00 [id number] [facility] 2020-11-30 2020-11-30 Outpatient R [facility] [id number] Univers 08:00:00 08:00:00 ity [facility] 2020-11-30 2020-11-30 [facility] Diana Woodward [id number] Univers 07:45:00 07:59:00 Encounter Brown Avery A[id number] [facility] [id number] Raffy as [phone] [place] [address] Branch 2020-11-27 2020-11-27 Outpatient R [facility] [id number] Univers 14:00:00 14:00:00 ANATOLY [id number] ity [facility] 2020-11-27 2020-11-27 Outpatient [facility]a [facility] [id number] Univers 14:00:00 14:00:00 ANATOLY ity [facility] 2020-11-25 2020-11-25 Telephone GregoryDiana [id number] Univers 00:00:00 00:00:00 Qiagerry [place] 350.1.13.10 i ty of Hospital 4.2.7.2.686 Raffy as [phone] [address] 2020-11-25 2020-11-25 Telephone [facility] [id number] Univers 00:00:00 00:00:00 Patient [place] [id number] i ty of Does Not Supply 4.2.7.2.686 Raffy as Have A Professio [phone] Mi dical nal 843 [facility] 2020-11-16 2020-11-16 Telephone GregoryDiana [id number] Univers 00:00:00 00:00:00 Qiageryr Zhuy [id number] i ty of Hospital 4.2.7.2.686 Raffy as [phone] [address] 2020-11-13 2020-11-13 Office [facility] 1.2.840.114 [id number] Univers 14:46:41 15:21:27 Visit Lily Hawkins [id number] [id number] [phone] Mi dical nal 059 [facility] 2020-11-13 2020-11-13 Outpatient R GREGORY [facility] [id number] Univers 14:00:00 14:00:00 LILY turner o f [facility] 2020-11-13 2020-11-13 Outpatient R IGOR [facility] [id number] Univers 13:00:00 13:00:00 WONDIFUL [id number] ity o f [facility] 2020-11-12 2020-11-12 Telephone [facility] [id number] Univers 00:00:00 00:00:00 Wondiful A Health [id number] ity of [place] 4.2.7.2.686 Raffy as Professio [phone] Me dical nal 044 [facility] 2020-10-28 2020-10-28 Pre Visit Igor [facility] [id number] Univers 00:00:00 00:00:00 Outreach [facility] 350.1.13.10 ity of [place] 4.2.7.2.686 Raffy as Professio [phone] [address] 2020-10-07 2020-10-07 Office Vance [facility] 1.2.840.114 [id number] Univers 13:57:34 15:30:50 Visit Wentong [place] 350.1.13.10 i ty [place] [phone] [facility] 220 [facility] 2020-10-07 2020-10-07 Outpatient [facility] [id number] -[id number] Univers 14:00:00 14:00:00 [facility] [id number] ity [facility] 2020-10-07 2020-10-07 Outpatient [facility] [id number] Univers 14:00:00 14:00:00 [facility] ity [facility] 2020-10-06 2020-10-06 Outpatient [facility] [id number] -[id number] Univers 14:30:00 14:30:00 [facility] [id number] ity [facility] 2020-10-06 2020-10-06 Outpatient R [facility] [id number] Univers 14:30:00 14:30:00 [facility] 2020-10-01 2020-10-01 Office [facility] 1.2.840.114 [id number] 15:08:27 16:09:31 Visit [facility] 350.1.13.10 [place] 4.2.7.2.686 Professio [phone] [address] 2020-10-01 2020-10-01 Office [facility] 1.2.840.114 [id number] Univers 15:08:27 16:09:31 Visit [facility] 350.1.13.10 ity of [place] 4.2.7.2.686 [place]affy as Professio [phone] [place] [address] [address] Office Building One 2020-10-01 2020-10-01 Outpatient R IGOR [facility] [id number] Univers 15:00:00 15:00:00 WONDIFUL ity o f [facility] 2020-09-26 2020-09-26 Refleticia [facility] 1.2.840.114 [id number] Univers 00:00:00 00:00:00 [facility] 350.1.13.10 ity of [place] 4.2.7.2.686 [place] Professio [phone] [address] Office Building One 2020-09-24 2020-09-24 [facility] 1.2.840.114 [id number] Univers 00:00:00 00:00:00 [facility] 350.1.13.10 ity of [place] 4.2.7.2.686 [place] Professio [phone] [address] [facility] One 2020-09-11 2020-09-11 [facility] 1.2.840.114 [id number] Univers 00:00:00 00:00:00 [facility] 350.1.13.10 ity of [place] 4.2.7.2.686 [place]aff[place] as Professio [phone] [address] Office Building One 2020-09-09 2020-09-09 Transition Matthew Gonzalez 1.2.840.114 [id number] Univers 00:00:00 00:00:00 of Care Garcia A Mata 350.1.13.10 it[place] [phone] [address] 2020-09-04 2020-09-07 [facility] Ronnie Murry [facility] 1.2.8 40.114 [id number] Univers 20:58:00 18:15:00 Encounter Anastasia Giraldo [place] 350.1.13.1 0 ity of Elyse Aparicio 4.2.7.2.686 [facility] [phone] Medical [address] 2020-09-04 2020-09-04 Office [facility] 1.2.367.903 [id number] Univers 16:01:54 17:11:05 Visit Anatoly Hawkins 350.1.13.10 i ty [place] [phone] Mi dical nal 220 [facility] 2020-09-04 2020-09-04 Outpatient [facility] [id number] 5Q-20 Univers 16:00:00 16:00:00 ANATOLY [id number] [facility] 2020-09-04 2020-09-04 Outpatient R [facility] [id number] Univers 16:00:00 16:00:00 [facility] 2020-09-04 2020-09-04 Outpatient R [facility] [id number] Univers 16:00:00 16:00:00 [facility] 2020-09-04 2020-09-04 Orders Doctor VAISHALI 1.2.840.114 [id number] Univers 00:00:00 00:00:00 Only Unassigned, AIDA 350.1.13.10 ity of [place] [facility] 4.2.7.2.686 Raffy as [phone] [address] 2020-08-13 2020-08-13 Patient [facility] 1.2.840.114 [id number] Univers 00:00:00 00:00:00 Outreach George PRIMARY 350.1.13.10 i ty of [facility] 4.2.7.2.[place] [phone] Mi dical [address] 2020-08-04 2020-08-04 Refill [facility] 1.2.052.399 [id number] Univers 00:00:00 00:00:00 Anatoly Hawkins 350.1.13.10 i ty [place] [phone] Me dical nal 220 [facility] 2020-08-04 2020-08-04 Aym [facility] 1.2.840.114 [id number] Univers 00:00:00 00:00:00 [facility] 350.1.13.10 ity of [place] 4.2.7.2.686 [place]aff[place] as Professio [phone] [address] [facility] One 2020-08-03 2020-08-03 Orders Doctor VAISHALI 1.2.840.114 [id number] Univers 00:00:00 00:00:00 Only Unassigned, AIDA 350.1.13.10 ity of [place] [facility] 4.2.7.2.686 Raffy as [phone] [address] 2020-07-16 2020-07-16 Outpatient Sonya COSTA [facility] [id number] Univers 11:15:00 11:15:00 WONDIFUL ity o f [facility] 2020-06-22 2020-06-22 Amy [facility] 1.2.840.114 [id number] Univers 00:00:00 00:00:00 [facility] 350.1.13.10 ity of [place] 4.2.7.2.686 [place]affy as Professio [phone] [address] One 2020-06-19 2020-06-19 Outpatient R IGOR [facility] [id number] Q-20 Univers 14:00:00 14:00:00 WONDIFUL [id number] ity o f [facility] 2020-06-08 2020-06-08 [facility] 1.2.840.114 [id number] Univers 00:00:00 00:00:00 [facility] 350.1.13.10 ity of [place] 4.2.7.2.686 [place] as Professio [phone] [address] One 2020-06-05 2020-06-05 Amy [facility] 1.2.840.114 [id number] Univers 00:00:00 00:00:00 [facility] 350.1.13.10 ity of [place] 4.2.7.2.686 [place] as Professio [phone] [address] [facility] One 2020-05-28 2020-05-28 Outpatient R IGOR [facility] [id number] Q-20 Univers 15:00:00 15:00:00 WONDIFUL [id number] ity o f [facility] 2020-05-28 2020-05-28 Outpatient [facility] [id number] Univers 15:00:00 15:00:00 WONDIFUL ity o f [facility] 2020-05-19 2020-05-19 [facility] 1.2.840.114 [id number] Univers 00:00:00 00:00:00 [facility] 350.1.13.10 ity of [place] 4.2.7.2.686 [place] Professio [phone] [address] 2020-05-14 2020-05-14 [facility] 1.2.840.114 [id number] Univers 00:00:00 00:00:00 [facility] 350.1.13.10 ity of [place] 4.2.7.2.686 [place] as Professio [phone] [address] 2020-05-13 2020-05-13 [facility] 1.2.840.114 [id number] Univers 00:00:00 00:00:00 Management [facility] 350.1.13.10 ity of [place] 4.2.7.2.686 [place]aff[place] as Professio [phone] [address] Office [facility] 2020-05-08 2020-05-08 [facility] 1.2.200.031 [id number] Univers 14:47:36 23:59:00 Encounter Wondiful A [place] 350.1.13.10 ity [place].686 [place] [phone] [facility] [address] [place] 2020-05-08 2020-05-08 Outpatient R MARK [facility] [id number] 5Q-20 Univers 16:30:00 16:30:00 ANATOLY [id number] ity of [facility] 2020-05-08 2020-05-08 Outpatient R MARK [facility] [id number] Univers 16:30:00 16:30:00 ANATOLY ity [facility] 2020-05-08 2020-05-08 Office [facility] 1.2.840.114 [id number] Univers 13:10:21 13:58:56 [facility] 350.1.13.10 [place] of [place] 4.2.7.2.686 [place]aff[place] as Professio [phone] Me dical nal [address] [place] Office Building One 2020-05-08 2020-05-08 Orders Doctor VAISHALI 1.2.840.114 [id number] Univers 00:00:00 00:00:00 Only Unassigned, AIDA 350.1.13.10 ity of [place] [facility] 4.2.7.2.686 Raffy as [phone] [address] 2020-05-01 2020-05-01 Outpatient R IGOR [facility] [id number] Q-20 Univers 10:30:00 10:30:00 WONDIFUL [id number] ity o f [facility] 2020-05-01 2020-05-01 Outpatient [facility] [id number] Univers 10:30:00 10:30:00 WONDIFUL ity o f [facility] 2020-04-17 2020-04-17 [facility]ici [facility] 1.2.840.114 [id number] Univers 11:00:00 11:30:00 ne Visit Sisi Hawkins 350.1.13.10 [place] [phone] Mi dical nal 134 [facility] 2020-04-17 2020-04-17 Outpatient R SHILA [facility] [id number] -[id number] Univers 11:00:00 11:00:00 SISI ity [facility] 2020-04-17 2020-04-17 Outpatient R SHILA [facility] [id number] Univers 11:00:00 11:00:00 SISI ity [facility] 2020-04-14 2020-04-14 Refleticia [facility] 1.2.840.114 [id number] Univers 00:00:00 00:00:00 [facility] 350.1.13.10 ity of [place] 4.2.7.2.686 [place]aff[place] as Professio [phone] Mi dical nal 044 [facility] One 2020-04-13 2020-04-13 [facility] 1.2.872.221 [id number] Univers 00:00:00 00:00:00 Anatoly Hawkins 350.1.13.10 i ty [place] [phone] Mi dical nal 220 [facility] 2020-04-08 2020-04-08 Telephone [facility] 1.2.471.273 [id number] Univers 00:00:00 00:00:00 Sisi Hawkins 350.1.13.10 [place] [phone] Mi dical nal 134 [facility] 2020-04-07 2020-04-07 Case [facility] 1.2.840.114 [id number] Univers 00:00:00 00:00:00 Management Sisi Hawkins 350.1.13.10 [place] [phone] Mi dical nal 134 [facility] 2020-04-03 2020-04-03 Office [facility] 1.2.840.114 [id number] Univers 13:15:01 14:30:02 Visit Sisi Hawkins 350.1.13.10 [place] [phone] Mi dical nal 134 [facility] 2020-04-03 2020-04-03 Outpatient R ADUM, [facility] [id number] Univers 13:30:00 13:30:00 SISI turner of [facility] 2020-04-03 2020-04-03 Outpatient R AD, [facility] [id number] -[id number] Univers 10:30:00 10:30:00 SISI ity of [facility] 2020-04-03 2020-04-03 Outpatient R SHILA, [facility] [id number] Univers 10:30:00 10:30:00 SISI ity of [facility] 2020-04-01 2020-04-01 Telephone Serena Garsia [facility] 1.2.840.114 [id number] Univers 00:00:00 00:00:00 Cam [place] 350.1.13.10 i ty [place] [phone] Mi dicri nal 134 [facility] 2020-03-20 2020-03-20 Refleticia [facility] 1.2.840.114 [id number] Univers 00:00:00 00:00:00 [facility] 350.1.13.10 ity of [place] 4.2.7.2.686 [place] as Professio [phone] Mi dical nal 044 [facility] 2020-03-09 2020-03-09 Refleticia [facility] 1.2.840.114 [id number] Univers 00:00:00 00:00:00 [facility] 350.1.13.10 ity of [place] 4.2.7.2.686 [place]aff[place] as Professio [phone] Mi dical nal [address] [facility] One 2020-02-17 2020-02-17 Telephone Igor [facility] 1.2.840.114 [id number] Univers 00:00:00 00:00:00 [facility] 350.1.13.10 ity of [place] 4.2.7.2.686 [place] as Professio [phone] Mi dical nal [address] [facility] One 2020-02-17 2020-02-17 Telephone Igor [facility] 1.2.840.114 [id number] Univers 00:00:00 00:00:00 [facility] 350.1.13.10 ity of [place] 4.2.7.2.686 [place] Professio [phone] Mi dical nal [address] 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 1, Adc Lab [facility] 1.2.840.114 [id number] Univers 10:55:34 11:10:34 Visit Anatoly Villegas 350.1.13.10 ity [place] [phone] [facility] [address] [place] 2020-01-11 2020-01-11 Outpatient R [facility] [id number] -[id number] Univers 11:00:00 11:00:00 [id number] ity [facility] 2020-01-11 2020-01-11 Outpatient R [facility] [id number] Univers 11:00:00 11:00:00 ity [facility] 2020-01-10 2020-01-10 Office [facility] 1..778.373 [id number] Univers 16:40:13 17:43:53 Visit Anatoly Hawkins 350.1.13.10 i ty [place]2.[place].2.[place] [facility] [phone] [facility] nal 220 [facility] 2020-01-10 2020-01-10 Outpatient R [facility] [id number] 5Q-20 Univers 16:30:00 16:30:00 ANATOLY [id number] ity [facility] 2020-01-10 2020-01-10 Outpatient R [facility] [id number] Univers 16:30:00 16:30:00 [facility] 2019-12-10 2019-12-10 Orders Doctor TOM 1.2.840.114 [id number] Univers 00:00:00 00:00:00 Only Unassigned, AIDA 350.1.13.10 ity of [place] [facility] 4.2.7.2.686 Raffy as [phone] [facility] [address] [place] 2019-12-10 2019-12-10 Telephone [facility] 1.2.840.114 [id number] Univers 00:00:00 00:00:00 Anatoly Hawkins 350.1.13.10 i ty [place] [phone] [facility] 220 [facility] 2019-12-05 2019-12-05 Refleticia [facility] 1.2.369.409 [id number] Univers 00:00:00 00:00:00 Anatoly Hawkins 350.1.13.10 i ty [place] [phone] [facility] 220 [facility] 2019-11-06 2019-11-06 Outpatient R [facility] [id number] -[id number] Univers 15:40:00 15:40:[id number] [facility] 2019-11-06 2019-11-06 Outpatient Sonya [facility] [id number] Univers 15:40:00 15:40:00 [facility] 2019-11-03 2019-11-03 [facility] 1.2.840.114 [id number] Univers 00:00:00 00:00:00 Wonful A [facility] 350.1.13.10 ity [facility] 4.2.7.2.686 [place] as Professio [phone] [facility] [address] [facility] One 2019-11-01 2019-11-01 Outpatient R KILO [facility] [id number] Univers 11:35:42 23:59:00 ERNST ity [facility] 2019-11-01 2019-11-01 [facility] ..840.114 [id number] [id number] Univers 11:35:00 23:59:00 [facility] Ernst Hawkins 350.1.13.10 ity of [place].2.[place] [phone] [address] 2019-11-01 2019-11-01 Outpatient [facility] [id number] 5Q-20 Univers 11:40:00 11:40:00 ERNST Jones [facility] 2019-11-01 2019-11-01 Orders Doctor VAISHALI 1.2.840.114 [id number] Univers 00:00:00 00:00:00 Only Unassigned, AIDA 350.1.13.10 ity of [place] [facility] 4.2.7.2.686 Raffy as [phone] [address] 2019-10-25 2019-10-25 Outpatient [facility] [id number] 5Q-20 Univers 00:00:00 00:00:00 ERNST [id number] [facility] 2019-10-11 2019-10-11 Office [facility] 1.2.014.199 [id number] Univers 14:59:15 16:12:30 Visit Ernst Hawkins 350.1.13.10 i ty [place]2.[place].2.[place] [phone] Mi dical nal 134 [facility] 2019-10-11 2019-10-11 Outpatient [facility] [id number] 5Q-20 Univers 15:00:00 15:00:00 ERNST [id number] [facility] 2019-10-11 2019-10-11 Outpatient [facility] [id number] Univers 15:00:00 15:00:00 ERNST [facility] 2019-10-11 2019-10-11 Orders Doctor VAISHALI 1.2.840.114 [id number] Univers 00:00:00 00:00:00 Only Unassigned, AIDA 350.1.13.10 [facility] 4.2.7.2.686 [place]aff[place] as [phone] [address] 2019-10-07 2019-10-07 Outpatient [facility] [id number] Univers 14:00:00 14:00:[facility] 2019-09-30 2019-09-30 Amy [facility] 1.2.458.225 [id number] Univers 00:00:00 00:00:00 Anatoly Hawkins 350.1.13.10 i ty [place] [phone] Mi dical nal 220 [facility] 2019-09-20 2019-09-20 Outpatient R MARK [facility] [id number] Univers 16:30:00 16:30:00 ANATOLY itmargarette [facility] 2019-09-20 2019-09-20 Telemedici [facility] 1.2.840.114 [id number] Univers 09:52:35 10:22:35 ne Visit Anatoly Hawkins 350.1.13.10 [place].2.[place] [phone] Mi dical nal 220 [facility] 2019-08-30 2019-08-30 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 2, 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 Lab [facility] 1.2.840.114 [id number] Univers 09:08:00 09:23:00 Visit Lily Franks 350.1.13.10 it[place].2.[place] [phone] [facility] 353 [facility] 2019-08-30 2019-08-30 Outpatient R [facility] [id number] Univers 09:15:00 09:15:00 [id number] ity of [facility] 2019-08-30 2019-08-30 Outpatient [facility] [id number] Univers 09:15:00 09:15:00 LILY ity o f [facility] 2019-08-30 2019-08-30 Orders Doctor TOM 1.2.840.114 [id number] Univers 00:00:00 00:00:00 Only Unassigned, AIDA 350.1.13.10 [facility] 4.2.7.2.686 [place]aff[place] as [phone] [address] 2019-08-22 2019-08-22 Outpatient R IGOR [facility] [id number] Q-20 Univers 14:00:00 14:00:00 WONDIFUL [id number] ity o f [facility] 2019-08-22 2019-08-22 Outpatient R IGOR [facility] [id number] Univers 14:00:00 14:00:00 WONDIFUL ity o f [facility] 2019-08-22 2019-08-22 Telemedici [facility] 1.2.840.114 [id number] Univers 09:19:01 09:49:01 ne Visit [facility] 350.1.13.10 ity of [place] 4.2.7.2.686 [place]aff[place] as Professio [phone] [address] One 2019-08-22 2019-08-22 Transition Matthew Chávez 1.2.840.114 [id number] Univers 00:00:00 00:00:00 of Care Jessica Mata 350.1.13.10 it y of [place].2.[place] [phone] [facility] [address] [place] 2019-08-20 2019-08-20 Transition David Chávezjoshua 1.2.840.114 [id number] Univers 00:00:00 00:00:00 of Care Jessica Mata 350.1.13.10 it y of [place].2.7.2.[place] [phone] [facility] [address] [place] 2019-08-19 2019-08-19 Telephone [facility] 1.2.840.114 [id number] Univers 00:00:00 00:00:00 [facility] 350.1.13.10 ity of [place] 4.2.7.2.686 [place] as Professio [phone] [address] 2019-08-12 2019-08-16 Inpatient U [facility] [id number] Univers 22:36:00 12:57:00 RHIANNA ity o f [facility] 2019-08-12 2019-08-16 Hospital Diana Romano 1.2.840.114 [id number] Univers 22:36:00 12:57:00 Encounter Rhianna Aida 350.1.13.10 ity of Hospital 4.2.7.2.686 Raffy as [phone] [facility] [address] [place] 2019-08-16 2019-08-16 Outpatient R [facility] [id number] -[id number] Univers 10:00:00 10:00:00 [id number] ity of [facility] 2019-08-16 2019-08-16 Outpatient R [facility] [id number] Univers 10:00:00 10:00:00 ity of [facility] 2019-08-12 2019-08-12 Telephone Gregory [facility] 1.2.296.868 [id number] Univers 00:00:00 00:00:00 Lily Hawkins 350.1.13.10 it[place] [phone] [address] 2019-08-09 2019-08-09 Telephone GregoryDiana 1.2.920.839 [id number] Univers 00:00:00 00:00:00 Lily Zhuy 350.1.13.10 i ty of [facility] 4.2.7.2.686 Raffy as [phone] [address] 2019-08-07 2019-08-07 Telephone GregoryDiana 1.2.091.238 [id number] Univers 00:00:00 00:00:00 iLly Parra 350.1.13.10 i ty of [facility] 4.2.7.2.686 [place]affy as [phone] [address] 2019-08-05 2019-08-06 Office [facility] 1.2.840.114 [id number] Univers 10:54:42 21:31:12 Visit Lily Hawkins 350.1.13.10 ity [place] [phone] [address] 2019-08-05 2019-08-05 Outpatient R GREGORY [facility] [id number] Univers 11:20:00 11:20:00 LILY turner o f [facility] 2019-08-05 2019-08-05 Orders Doctor VAISHALI 1.2.840.114 [id number] Univers 00:00:00 00:00:00 Only Unassigned, AIDA 350.1.13.10 ity of [place] [facility] 4.2.7.2.686 Raffy as [phone] [address] 2019-02-04 2019-02-04 Office [facility] 1.2.840.114 [id number] Univers 09:40:44 10:41:11 Visit Lily Hawkins 350.1.13.10 it[place] of [place].2.[place] [phone] Mi dical nal 059 [facility] 2019-02-04 2019-02-04 Orders Doctor VAISHALI 1.2.840.114 [id number] Univers 00:00:00 00:00:00 Only Unassigned, AIDA 350.1.13.10 ity of [place] [facility] 4.2.7.2.686 Raffy as [phone] [address] 2019-01-04 2019-01-04 Office Mark [facility] 1.2.893.701 [id number] [facility] 14:30:15 15:51:35 Visit Anatoly Rodriguez Shruthi 350.1.13.10 i ty of [place]2.[place].2.[place] [phone] [facility] 220 [facility] 2019-01-04 2019-01-04 Orders Doctor VAISHALI 1.2.840.114 [id number] Univers 00:00:00 00:00:00 Only Unassigned, AIDA 350.1.13.10 ity of [place] [facility] 4.2.7.2.686 Raffy as [phone] [address] 2018-12-20 2018-12-20 Orders Doctor VAISHALI 1.2.840.114 [id number] Univers 00:00:00 00:00:00 Only Unassigned, AIDA 350.1.13.10 ity of [place] [facility]ITAL 4.2.7.2.686 Raffy as [phone] [address] 2018-12-06 2018-12-06 Orders Doctor VAISHALI 1.2.840.114 [id number] Univers 00:00:00 00:00:00 Only Unassigned, AIDA 350.1.13.10 ity of [place] [facility] 4.2.7.2.686 Raffy as [phone] [address] 2018-06-27 2018-06-27 Out[facility] [id number] [facility] [address] 11:57:00 11:57:00 t [facility] Outpati ent Clinics 2018-06-15 2018-06-15 [facility] [id number] 16:24:00 16:24:00 [employer] [facility] Outpat[facility] ent Clinics 2018-06-13 2018-06-13 [facility] [id number] [facility] 13:30:00 13:30:00 [employer] [facility] Outpati ent Clinics 2017-12-12 2017-12-12 [facility] [id number] [facility] 13:22:00 13:22:00 t [employer] [facility] Outpati ent Clinics 2017-11-20 2017-11-20 [facility] [id number] [facility] 10:30:00 10:30:00 [employer] [facility] Outpati ent Clinics 2017-11-02 2017-11-02 [facility] [id number] [facility] 15:15:00 15:15:00 [facility] [employer] [facility] Results Test Description Test Time Test Comments Results Result Comments Source POCT GLUCOSE (AUTOMATED) 2021-02-12 21:30:54 Test Item Value Reference Range Interpretation Comme nts POCT GLU (test code = 7275773367) 441 mg/dL 70-110 H Lab Interpretation (test code = 04862-3) [facility]normal [facility]2021-02-12 21:30:54 Test Item Value Reference Range Interpretation Comments POCT GLU (test code = 5137398472) 441 mg/dL 70-110 H Lab Interpretation (test code = Abnormal 67661-7) [facility] (NA, K, CL, CO2, GLUCOSE, BUN, CREATININE, CA)2021-02-12 21:22:44 Test Item Value Reference Range Interpretation Comments NA (test code = 128 mmol/L 135-145 L [id number]) K (test code = 4.3 mmol/L 3.5-5.0 [id number]) CL (test code = 99 mmol/L 98-108 [id number]) CO2 TOTAL (test code = 19 mmol/L 23-31 L 7376782070) AGAP (test code = 2-16 7036397419) BUN (test code = 13 mg/dL 7-23 7997077131) GLUCOSE (test code = 522 mg/dL 70-110 HH 0535536578) CREATININE (test code = 0.62 mg/dL 0.50-1.04 8657974393) CALCIUM (test code = 8.2 mg/dL 8.6-10.6 L 3563731690) eGFR (test code = mL/min/1.73m2 7243360320) NISHA (test code = NISHA) Association of [...] tests). Lab Interpretation Abnormal (test code = 43959-7) [facility] METABOLIC PANEL (NA, K, CL, CO2, GLUCOSE, BUN, CREATININE, CA)2021-02-12 21:22:44 Test Item Value Reference Range Interpretation Comments NA (test code = 128 mmol/L 135-145 L 3015320678) K (test code = 4.3 mmol/L 3.5-5.0 4292142035) CL (test code = 99 mmol/L 98-108 5729327808) CO2 TOTAL (test code = 19 mmol/L 23-31 L 3102200486) AGAP (test code = 2-16 8514826651) BUN (test code = 13 mg/dL 7-23 2698277314) GLUCOSE (test code = 522 mg/dL 70-110 HH 3396422141) CREATININE (test code = 0.62 mg/dL 0.50-1.04 0732539055) CALCIUM (test code = 8.2 mg/dL 8.6-10.6 L 4287424699) eGFR (test code = mL/min/1.73m2 6375277778) NISHA (test code = NISHA) Association of [...] tests). Lab Interpretation Abnormal (test code = 89638-8) [facility] WITH [id number] 20:50:11 Test Item Value Reference Range Interpretation Comments WBC (test code = See_Comment [Automated message] 6690-2) The system webme generated this result transmitted ref erence range: 4.30 - 1 1.10 10*3/?L. The re ference range was not u sed to interpret this result as normal/abnor mal. RBC (test code = See_Comment [Automated message] 789-8) The system webme generated this result transmitted ref erence range: [...] RDW-SD (test code 40.4 fL 39.0-49.9 = 95115-0) RDW-CV (test code 12.7 % 12.0-15.5 = 788-0) PLT (test code = See_Comment [Automated message] 777-3) The system webme generated this result transmitted ref erence range: 166 - 35 8 10*3/?L. The re ference range was not u sed to interpret this result as normal/abnor mal. MPV (test code = 10.3 fL 9.5-12.9 56366-9) NRBC/100 WBC (test See_Comment [Automat ed message] code = 1799073759) The syste [employer] which generated this result transmitted ref erence range: 0.0 - 10 .0 /100 WBCs. The refer ence range was not u sed to interpret this result as normal/abnor mal. NRBC x10^3 (test <0.01 See_Comment [Automated message] code = 8603619061) The syste m which generated this result transmitted ref erence range: 10*3/?L. The reference range was not used to interpr et this result as normal/abnormal . GRAN MAT (NEUT) % 68.0 % (test code = 770-8) IMM GRAN % (test 0.30 % code = 0926010388) LYMPH % (test code 23.0 % = 736-9) MONO % (test code 5.0 % = 5905-5) EOS % (test code = 3.0 % 713-8) BASO % (test code 0.7 % = 706-2) GRAN MAT 6.52 10*3/uL 1.88-7.09 x10^3(ANC) (test code = 1119771294) IMM GRAN x10^3 0.03 10*3/uL 0.00-0.06 (test code = 9558958128) LYMPH x10^3 (test 2.21 10*3/uL 1.32-3.29 code = 731-0) MONO x10^3 (test 0.48 10*3/uL 0.33-0.92 code = 742-7) EOS x10^3 (test 0.29 10*3/uL 0.03-0.39 code = 711-2) BASO x10^3 (test 0.07 10*3/uL 0.01-0.07 code = 704-7) [facility] WITH [id number] 20:50:11 Test Item Value Reference Range Interpretation Comments WBC (test code = See_Comment [Automated message] 6690-2) The system webme generated this result transmitted ref erence range: 4.30 - 1 1.10 10*3/?L. The re ference range was not u sed to interpret this result as normal/abnor mal. RBC (test code = See_Comment [Automated message] 789-8) The system webme generated this result transmitted ref erence range: [...] RDW-SD (test code 40.4 fL 39.0-49.9 = 07150-8) RDW-CV (test code 12.7 % 12.0-15.5 = 788-0) PLT (test code = See_Comment [Automated message] 777-3) The system whic h generated this result transmitted ref erence range: 166 - 35 8 10*3/?L. The re ference range was not u sed to interpret this result as normal/abnor mal. MPV (test code = 10.3 fL 9.5-12.9 92937-4) NRBC/100 WBC (test See_Comment [Automat ed message] code = 1904547496) The syste m which generated this result transmitted ref erence range: 0.0 - 10 .0 /100 WBCs. The refer ence range was not u sed to interpret this result as normal/abnor mal. NRBC x10^3 (test <0.01 See_Comment [Automated message] code = 0203692571) The syste m which generated this result transmitted ref erence range: 10*3/?L. The reference range was not used to interpr et this result as normal/abnormal . GRAN MAT (NEUT) % 68.0 % (test code = 770-8) IMM GRAN % (test 0.30 % code = 0783354471) LYMPH % (test code 23.0 % = 736-9) MONO % (test code 5.0 % = 5905-5) EOS % (test code = 3.0 % 713-8) BASO % (test code 0.7 % = 706-2) GRAN MAT 6.52 10*3/uL 1.88-7.09 x10^3(ANC) (test code = 6847430572) IMM GRAN x10^3 0.03 10*3/uL 0.00-0.06 (test code = 4861854938) LYMPH x10^3 (test 2.21 10*3/uL 1.32-3.29 code = 731-0) MONO x10^3 (test 0.48 10*3/uL 0.33-0.92 code = 742-7) EOS x10^3 (test 0.29 10*3/uL 0.03-0.39 code = 711-2) BASO x10^3 (test 0.07 10*3/uL 0.01-0.07 code = 704-7) [facility] GLUCOSE (AUTOMATED)2021-02-12 19:42:22 Test Item Value Reference Range Interpretation Comments POCT GLU (test code = 8229533630) 558 mg/dL 70-110 HH Lab Interpretation (test code = Abnormal 50393-3) [facility] GLUCOSE (AUTOMATED)2021-02-12 19:42:22 Test Item Value Reference Range Interpretation Comments POCT GLU (test code = 8660642225) 558 mg/dL 70-110 HH Lab Interpretation (test code = Abnormal 57342-7) [facility] GLUCOSE (AUTOMATED)2021-01-17 18:00:29 Test Item Value Reference Range Interpretation Comments POCT GLU (test code = 1170764404) 327 mg/dL 70-110 H Lab Interpretation (test code = Abnormal 29150-7) [facility] GLUCOSE (AUTOMATED)2021-01-17 13:28:29 Test Item Value Reference Range Interpretation Comments POCT GLU (test code = 4380332405) 374 mg/dL 70-110 H Lab Interpretation (test code = Abnormal 69512-5) [facility] METABOLIC PANEL (NA, K, CL, CO2, GLUCOSE, BUN, CREATININE, CA)2021-01-17 09:28:24 Test Item Value Reference Range Interpretation Comments NA (test code = 132 mmol/L 135-145 L 6074545979) K (test code = 4.5 mmol/L 3.5-5.0 8986981093) CL (test code = 106 mmol/L 98-108 6512878043) CO2 TOTAL (test code = 23 mmol/L 23-31 1266891472) AGAP (test code = 2-16 8187765402) BUN (test code = 19 mg/dL 7-23 6208473438) GLUCOSE (test code = 383 mg/dL 70-110 H 2822620716) CREATININE (test code = 0.71 mg/dL 0.50-1.04 4932049641) CALCIUM (test code = 7.9 mg/dL 8.6-10.6 L 3943194627) eGFR (test code = mL/min/1.73m2 2860812029) NISHA (test code = NISHA) Association of [...] tests). Lab Interpretation Abnormal (test code = 52332-6) [facility] WITH [id number] 09:16:04 Test Item Value Reference Range Interpretation Comments WBC (test code = See_Comment [Automated message] 6690-2) The system webme generated this result transmitted ref erence range: 4.30 - 1 1.10 10*3/?L. The re ference range was not u sed to interpret this result as normal/abnor mal. RBC (test code = See_Comment [Automated message] 789-8) The system webme generated this result transmitted ref erence range: [...] RDW-SD (test code 39.3 fL 39.0-49.9 = 36530-8) RDW-CV (test code 12.4 % 12.0-15.5 = 788-0) PLT (test code = See_Comment [Automated message] 777-3) The system webme generated this result transmitted ref erence range: 166 - 35 8 10*3/?L. The re ference range was not u sed to interpret this result as normal/abnor mal. MPV (test code = 11.0 fL 9.5-12.9 77251-7) NRBC/100 WBC (test See_Comment [Automat ed message] code = 5371712469) The syste [employer] which generated this result transmitted ref erence range: 0.0 - 10 .0 /100 WBCs. The refer ence range was not u sed to interpret this result as normal/abnor mal. NRBC x10^3 (test <0.01 See_Comment [Automated message] code = 2111600578) The syste m which generated this result transmitted ref erence range: 10*3/?L. The reference range was not used to interpr et this result as normal/abnormal . GRAN MAT (NEUT) % 52.9 % (test code = 770-8) IMM GRAN % (test 0.40 % code = 6465499934) LYMPH % (test code 35.0 % = 736-9) MONO % (test code 6.7 % = 5905-5) EOS % (test code = 4.0 % 713-8) BASO % (test code 1.0 % = 706-2) GRAN MAT 3.88 10*3/uL 1.88-7.09 x10^3(ANC) (test code = 0727862745) IMM GRAN x10^3 0.03 10*3/uL 0.00-0.06 (test code = 0340844899) LYMPH x10^3 (test 2.56 10*3/uL 1.32-3.29 code = 731-0) MONO x10^3 (test 0.49 10*3/uL 0.33-0.92 code = 742-7) EOS x10^3 (test 0.29 10*3/uL 0.03-0.39 code = 711-2) BASO x10^3 (test 0.07 10*3/uL 0.01-0.07 code = 704-7) [facility] GLUCOSE (AUTOMATED)2021-01-16 22:25:02 Test Item Value Reference Range Interpretation Comments POCT GLU (test code = 9840652613) 301 mg/dL 70-110 H Lab Interpretation (test code = Abnormal 80805-2) [facility] GLUCOSE (AUTOMATED)2021-01-16 21:22:23 Test Item Value Reference Range Interpretation Comments POCT GLU (test code = 8212212781) 228 mg/dL 70-110 H Lab Interpretation (test code = Abnormal 26055-1) [facility], [id number] 19:28:10 Test Item Value Reference Range Interpretation Comments dLDL Chol (test code = 65844-2) 51 mg/dL <130 Lab Interpretation (test code = Normal 77463-2) [facility] GLUCOSE (AUTOMATED)2021-01-16 13:20:02 Test Item Value Reference Range Interpretation Comments POCT GLU (test code = 4155189681) 282 mg/dL 70-110 H Lab Interpretation (test code = Abnormal 64709-9) [facility] (Total Cholesterol, Triglycerides, HDL) - Jepqxql6042-79-83 10:51:04 Test Item Value Reference Range Interpretation Comments CHOL (test code = 123 mg/dL 120-200 8647694049) HDL (test code = 24 mg/dL >50 L 0502648361) HDLC RATIO (test code = See_Comment H [Au tomated message] 3500207550) The system webme generated this result transmitted ref erence range: <=4.5. T he reference range was not used to int erpret this result as normal/abnormal . TRIG (test code = 437 mg/dL 30-170 H 9683598118) LDL CHOL (test code = Unable to calculate 88556-7) LDL due to elev ated triglyceride le sweetie greater than 40 0 mg/dL. VLDL (test code = 87 mg/dL 5-60 H 7429153704) Lab Interpretation Abnormal (test code = 30173-3) [facility] Metabolic Panel (NA, K, CL, CO2, GLUCOSE, BUN, CREATININE, CA)2021-01-16 10:50:48 Test Item Value Reference Range Interpretation Comments NA (test code = 134 mmol/L 135-145 L 2751031325) K (test code = 2.7 mmol/L 3.5-5.0 LL 2225929180) CL (test code = 101 mmol/L 98-108 8529135477) CO2 TOTAL (test code = 24 mmol/L 23-31 8909009145) AGAP (test code = 2-16 1468400304) BUN (test code = 15 mg/dL 7-23 2353723725) GLUCOSE (test code = 160 mg/dL 70-110 H 8717501123) CREATININE (test code = 0.69 mg/dL 0.50-1.04 9841137225) CALCIUM (test code = 8.5 mg/dL 8.6-10.6 L 1956035632) eGFR (test code = mL/min/1.73m2 3952076779) NISHA (test code = NISHA) Association of [...] tests). Lab Interpretation Abnormal (test code = 17350-8) [facility] [id number] 10:35:20 Test Item Value Reference Range Interpretation Comments MAGNESIUM (test code = 9510707960) 1.5 mg/dL 1.7-2.4 L Lab Interpretation (test code = Abnormal 52135-1) [facility] with Rhyifsoodhmg3692-90-17 10:03:39 Test Item Value Reference Range Interpretation Comments WBC (test code = See_Comment [Automated 0976-2) message] The sy stem which generated this result transmitted reference range : 4.30 - 11.10 10*3/?L. The reference range was not used to interpret this result as normal/abnormal . RBC (test code = See_Comment [Automated 770-0) message] The sy stem which generated this [...] (test code = 37.2 fL 39.0-49.9 L 87345-7) RDW-CV (test code = 12.1 % 12.0-15.5 788-0) PLT (test code = See_Comment [Automated 777-3) message] The sy stem which generated this result transmitted reference range : 166 - 358 10*3/ ?L. The reference r chelsie was not used to interpret this result as normal/abnormal . MPV (test code = 10.9 fL 9.5-12.9 42515-2) NRBC/100 WBC (test See_Comment [Automat ed code = 0932699326) message] The system which generated this result transmitted reference range : 0.0 - 10.0 /100 WBCs. The refer ence range was not u sed to interpret th is result as normal/abnormal . NRBC x10^3 (test code <0.01 See_Comment [Auto mated = 7832005785) message] The s ystem which generated this result transmitted reference range : 10*3/?L. The reference range was not used to interpret this result as normal/abnormal . GRAN MAT (NEUT) % 37.0 % (test code = 770-8) IMM GRAN % (test code 0.30 % = 0492560292) LYMPH % (test code = 47.8 % 736-9) MONO % (test code = 8.6 % 5905-5) EOS % (test code = 5.0 % 713-8) BASO % (test code = 1.3 % 706-2) GRAN MAT x10^3(ANC) 2.37 10*3/uL 1.88-7.09 (test code = 1897076206) IMM GRAN x10^3 (test <0.03 0.00-0.06 code = 0476965471) LYMPH x10^3 (test code 3.06 10*3/uL 1.32-3.29 = 731-0) MONO x10^3 (test code 0.55 10*3/uL 0.33-0.92 = 742-7) EOS x10^3 (test code = 0.32 10*3/uL 0.03-0.39 711-2) BASO x10^3 (test code 0.08 10*3/uL 0.01-0.07 H = 704-7) Lab Interpretation Abnormal (test code = 41838-0) [facility] GLUCOSE (AUTOMATED)2021-01-16 08:30:27 Test Item Value Reference Range Interpretation Comments POCT GLU (test code = 2155260088) 171 mg/dL 70-110 H Lab Interpretation (test code = Abnormal 48977-7) [facility] GLUCOSE (AUTOMATED)2021-01-16 03:57:09 Test Item Value Reference Range Interpretation Comments POCT GLU (test code = 6837473777) 407 mg/dL 70-110 H Lab Interpretation (test code = Abnormal 45570-1) [facility] ONLY COVID [id number] 02:31:30COVID DMT InterpretationInterpretation/Recommendations:Molecular NAAT Tests for Active [...] 1-2 weeks prior to antibody testing, any rpiatrebFNWS-EoO-2 IgG antibody result is likely due to [...] COVID-19 testing the patient has had at [facility], including molecular NAAT testing (more commonly known as PCR testing and Rapid ID Now testing) and antibody testing. It does not take into account any testing that a patient has had outside of the [facility] medical record. [facility] LABORATORY SERVICESCOVID CfqlkiuJMOL-JwN-3 Rapid ID NOW (no units) ? ? Date ? Value ? 01/15/2021 ? Not Detected ? ? ? 11/30/2020 ? Not Detected ? ? ? 09/05/2020 ? Not Detected ? [facility]AT[facility] SERVICESUnFoundation [facility] PasoUrinalysis2021-08-21 02:28:46 Test Item Value Reference Range Interpretation Comments APPEARANCE (test code = Hazy Clear A 7311958384) COLOR (test code = Yellow Yellow 9296259623) PH (test code = 4.8-8.0 9314747708) SP GRAVITY (test code = 1.003-1.030 6123666178) GLU U QUAL (test code = 500 mg/dL Normal A 9800340067) BLOOD (test code = 1+ Negative A 3816193827) KETONES (test code = Negative Negative 2840222435) PROTEIN (test code = Negative Negative 2887-8) UROBILIN (test code = Normal Normal 6172128355) BILIRUBIN (test code = Negative Negative 7818593338) NITRITE (test code = Negative Negative 8710785022) LEUK JOSEFA (test code = 500/uL Negative A 8073744099) RBC/HPF (test code = See_Comment H [Autom ated message] 9580403031) The system webme generated this result transmit anthony reference range : 0 - 3 HPF. The refe rence range was not u sed to interpret th is result as normal/abnormal . WBC/HPF (test code = See_Comment H [Autom ated message] 9763887598) The system webme generated this result transmit anthony reference range : 0 - 5 HPF. The refe rence range was not u sed to interpret th is result as normal/abnormal . BACTERIA (test code = Few Negative A 6567217240) MUCOUS (test code = Slight Negative LPF A 4689096234) SQ EPITH (test code = HPF 9449693138) Lab Interpretation (test Abnormal code = 94166-9) [facility])2021-01-16 01:20:09 Test Item Value Reference Range Interpretation Comments POCT GLU (test code = 1136046864) 525 mg/dL 70-110 HH Lab Interpretation (test code = Abnormal 82744-5) [facility] CampusThyroid Stimulating Hormone (TSH)2021-01-16 00:51:02 Test Item Value Reference Range Interpretation Comments TSH (test code = See_Comment [Automated message] 4279149721) The system webme generated this result transmitted ref erence range: 0.45 - 4 .70 mIU/L. The refe rence range was not u sed to interpret this result as normal/abnor mal. Lab Interpretation (test Normal code = 35754-7) [facility] CampusTroponin [id number] 00:32:40 Test Item Value Reference Interpretation Comments Range TROPONIN I (test 0.006 ng/mL See_Comment [Automated code = 9266285889) message] The system which generated this result [...] biotin. Lab Interpretation Normal (test code = 29695-3) [facility] CampusHEPATIC FUNCTION PANEL (99514) (ALB,T.PRO,BILI T,BU/BC,ALT,AST,ALK PHOS)2021-01-16 00:20:20 Test Item Value Reference Range Interpretation Comments TOTAL BILI (test code = 0712223211) 0.8 mg/dL 0.1-1.1 BILI UNCON (test code = 3279809852) 0.5 mg/dL 0.1-1.1 BILI CONJ (test code = 9215342960) 0.0 mg/dL 0.0-0.3 T PROTEIN (test code = 3519320294) 7.6 g/dL 6.3-8.2 ALBUMIN (test code = 7503917893) 4.0 g/dL 3.5-5.0 ALK PHOS (test code = 4603851171) 159 U/L 34-122 H ALTv (test code = 1742-6) 18 U/L 5-35 AST(SGOT) (test code = 2595014679) 27 U/L 13-40 Lab Interpretation (test code = Abnormal 51707-2) [facility] CampusPhosphorus Ofbse2642-74-63 00:19:59 Test Item Value Reference Range Interpretation Comments PHOSPHORUS (test code = 6115647776) 3.4 mg/dL 2.5-5.0 Lab Interpretation (test code = Normal 41359-1) [facility] CampusGlycosylated Hemoglobin (A1C)2021-01-16 00:15:56 Test Item Value Reference Range Interpretation Comments HGB A1C (test code = >14.0 4.0-5.7 H 4548-4) NISHA (test code = NISHA) Reference RangesNormal: <5.7%Prediabetes: 5.7 - 6.4%Diabetes: > 6.5% Lab Interpretation (test Abnormal code = 10043-4) [facility] GLUCOSE (AUTOMATED)2021-01-15 22:36:13 Test Item Value Reference Range Interpretation Comments POCT GLU (test code = 4784075603) 565 mg/dL 70-110 HH Lab Interpretation (test code = Abnormal 34446-1) [facility] CampusCOVID-19 (ID NOW RAPID TESTING)2021-01-15 21:10:19 Test Item Value Reference Range Interpretation Comments SARS-CoV-2 Rapid ID NOW Not Detected Not Detected (test code = 43309-3) NISHA (test code = NISHA) ID NOW COVID-19 Assay is an isothermal nucleic acid amplification test intended for the qualitative detection of nucleic acid from SARS-CoV-2 viral RNA in nasopharyngeal (HELICOPTER OFFICER) specimens. It is used under Emergency Use [...] indicated. Lab Interpretation Normal (test code = 55399-5) [facility] HEMOGLOBIN A1C [id number] 16:42:00 Test Item Value Reference Range Interpretation Comments POCT HBA1C (test code = 4548-4) 14 % 4-6 A Lab Interpretation (test code = Abnormal 99861-0) [facility] HEMOGLOBIN A1C [id number] 16:42:00 Test Item Value Reference Range Interpretation Comments POCT HBA1C (test code = 4548-4) 14 % 4-6 A Lab Interpretation (test code = Abnormal 26059-5) [facility] GLUCOSE (AUTOMATED)2020-12-01 17:40:09 Test Item Value Reference Range Interpretation Comments POCT GLU (test code = 350 mg/dL 70-110 H Notifi ed Provider 9045648539) Lab Interpretation (test Abnormal code = 97144-8) [facility] CampusPOCA GLUCOSE (AUTOMATED)2020-12-01 13:22:36 Test Item Value Reference Range Interpretation Comments POCT GLU (test code = 3798834152) 215 mg/dL 70-110 H Lab Interpretation (test code = Abnormal 69628-8) [facility] Metabolic Panel (NA, K, CL, CO2, GLUCOSE, BUN, CREATININE, CA)2020-12-01 11:30:25 Test Item Value Reference Range Interpretation Comments NA (test code = 135 mmol/L 135-145 6725375705) K (test code = 4.0 mmol/L 3.5-5.0 5439873982) CL (test code = 104 mmol/L 98-108 8762151762) CO2 TOTAL (test code = 21 mmol/L 23-31 L 8475279012) AGAP (test code = 2-16 0115069268) BUN (test code = 13 mg/dL 7-23 8175771226) GLUCOSE (test code = 388 mg/dL 70-110 H 4831914425) CREATININE (test code = 0.69 mg/dL 0.50-1.04 2091089547) CALCIUM (test code = 8.0 mg/dL 8.6-10.6 L 6226901403) eGFR (test code = mL/min/1.73m2 8446418163) NISHA (test code = NISHA) Association of [...] tests). Lab Interpretation Abnormal (test code = 95737-1) [facility] CampusMagnesium Csfmb8571-88-60 11:30:25 Test Item Value Reference Range Interpretation Comments MAGNESIUM (test code = 2372464303) 1.6 mg/dL 1.7-2.4 L Lab Interpretation (test code = Abnormal 74233-4) [facility] with Yimkecwhizza8997-17-00 10:38:41 Test Item Value Reference Range Interpretation Comments WBC (test code = See_Comment [Automated 9290-2) message] The sy stem which generated this result transmitted reference range : 4.30 - 11.10 10*3/?L. The reference range was not used to interpret this result as normal/abnormal . RBC (test code = See_Comment [Automated 869-8) message] The sy stem which generated this [...] (test code = 38.6 fL 39.0-49.9 L 21283-9) RDW-CV (test code = 12.1 % 12.0-15.5 788-0) PLT (test code = See_Comment [Automated 127-3) message] The sy stem which generated this result transmitted reference range : 166 - 358 10*3/ ?L. The reference r chelsie was not used to interpret this result as normal/abnormal . MPV (test code = 10.6 fL 9.5-12.9 32286-9) NRBC/100 WBC (test See_Comment [Automat ed code = 6412920175) message] The system which generated this result transmitted reference range : 0.0 - 10.0 /100 WBCs. The refer ence range was not u sed to interpret th is result as normal/abnormal . NRBC x10^3 (test code <0.01 See_Comment [Auto mated = 3982656883) message] The s ystem which generated this result transmitted reference range : 10*3/?L. The reference range was not used to interpret this result as normal/abnormal . GRAN MAT (NEUT) % 73.2 % (test code = 770-8) IMM GRAN % (test code 0.40 % = 3305953742) LYMPH % (test code = 18.4 % 736-9) MONO % (test code = 5.6 % 5905-5) EOS % (test code = 2.0 % 713-8) BASO % (test code = 0.4 % 706-2) GRAN MAT x10^3(ANC) 7.52 10*3/uL 1.88-7.09 H (test code = 7076672225) IMM GRAN x10^3 (test 0.04 10*3/uL 0.00-0.06 code = 7507140323) LYMPH x10^3 (test code 1.89 10*3/uL 1.32-3.29 = 731-0) MONO x10^3 (test code 0.58 10*3/uL 0.33-0.92 = 742-7) EOS x10^3 (test code = 0.21 10*3/uL 0.03-0.39 711-2) BASO x10^3 (test code 0.04 10*3/uL 0.01-0.07 = 704-7) Lab Interpretation Abnormal (test code = 66686-9) [facility] GLUCOSE (AUTOMATED)2020-12-01 02:30:55 Test Item Value Reference Range Interpretation Comments POCT GLU (test code = 1161710376) 347 mg/dL 70-110 H Lab Interpretation (test code = Abnormal 91746-0) [facility] CampusACTIVATED PARTIAL THRMPLAS [id number] 01:05:55 Test Item Value Reference Range Interpretation Comments APTT Patient (test code See_Comment H [Au tomated message] = 3173-2) The system webme generated this result transmitted ref erence range: 26 - 36 Seconds. The reference range was not used to int erpret this result as normal/abnormal . Lab Interpretation (test Abnormal code = 77243-9) [facility]LAB [facility] COVID DJRNKVNRPBTAHW5696-71-53 22:44:24COVID DMT InterpretationInterpretation/Recommendations:Molecular NAAT Tests for Active [...] COVID-19 testing the patient has had at [facility], including molecular NAAT testing (more commonly known as PCR testing and Rapid ID Now testing) and antibody testing. It does not take into account any testing that a patient has had outside of the [facility] medical record. [facility] LABORATORY SERVICESCOVID ResultsSARS- CoV-2 Rapid ID NOW (no units) ? ? Date ? Value ? 11/30/2020 ? Not Detected ? ? ? 09/05/2020 ? Not Detected ? [facility] POCT ACT LOW [id number] 22:26:21 Test Item Value Reference Range Interpretation Comments ACTLR (test code = See_Comment H [Automat ed message] [id number]) The system webme generated this result transmitted ref erence range: 89 - 169 Seconds. The reference range was not used to int erpret this result as normal/abnormal . Lab Interpretation (test Abnormal code = 92086-5) [facility]PO[facility] LOW [id number] 22:03:24 Test Item Value Reference Range Interpretation Comments ACTLR (test code = See_Comment H [Automat ed message] 5524939557) The system webme generated this result transmitted ref erence range: 89 - 169 Seconds. The reference range was not used to int erpret this result as normal/abnormal . Lab Interpretation (test Abnormal code = 40290-9) [facility] CampusBASI METABOLIC PANEL (NA, K, CL, CO2, GLUCOSE, BUN, CREATININE, CA)2020-11-30 16:00:24 Test Item Value Reference Range Interpretation Comments NA (test code = 130 mmol/L 135-145 L 2112189033) K (test code = 3.8 mmol/L 3.5-5.0 0450204753) CL (test code = 98 mmol/L 98-108 3374220789) CO2 TOTAL (test code = 25 mmol/L 23-31 6556745564) AGAP (test code = 2-16 4419006036) BUN (test code = 12 mg/dL 7- 3404522451) GLUCOSE (test code = 624 mg/dL 70-110 0548123058) CREATININE (test code = 0.63 mg/dL 0.50-1.04 6891768153) CALCIUM (test code = 8.2 mg/dL 8.6-10.6 L 9543313755) eGFR (test code = mL/min/1.73m2 0428711565) NISHA (test code = NISHA) Association of [...] tests). Lab Interpretation Abnormal (test code = 78811-6) [facility]2020-11-30 13:55:18 Test Item Value Reference Range Interpretation Comments SARS-CoV-2 Rapid ID NOW Not Detected Not Detected (test code = 93059-7) NISHA (test code = NISHA) ID NOW COVID-19 Assay is an isothermal nucleic acid amplification test intended for the qualitative detection of nucleic acid from SARS-CoV-2 viral RNA in nasopharyngeal (HELICOPTER OFFICER) specimens. It is used under Emergency Use [...] indicated. Lab Interpretation Normal (test code = 44240-4) [facility] GLUCOSE(AGE >30DAYS)2020-10-07 19:39:00 Test Item Value Reference Range Interpretation Comments POCT Glu (age>30days) (test code = 189 mg/dL 70-110 A 3342) Lab Interpretation (test code = Abnormal 48285-8) [facility] GLUCOSE(AGE >30DAYS)2020-10-07 19:39:00 Test Item Value Reference Range Interpretation Comments POCT Glu (age>30days) (test code = 189 mg/dL 70-110 A 3342) Lab Interpretation (test code = Abnormal 04996-2) [facility] GLUCOSE (AUTOMATED)2020-09-07 22:31:04 Test Item Value Reference Range Interpretation Comments POCT GLU (test code = 8757874206) 72 mg/dL 70-110 Lab Interpretation (test code = Normal 87306-2) [facility] GLUCOSE (AUTOMATED)2020-09-07 21:54:57 Test Item Value Reference Range Interpretation Comments POCT GLU (test code = 1289463567) 88 mg/dL 70-110 Lab Interpretation (test code = Normal 33856-1) [facility] CampusVIT[facility]IN D, [id number] 21:07:23 Test Item Value Reference Range Interpretation Comments VIT D 25OH (test code = <13 25-80 L 10605-6) NISHA (test code = NISHA) Deficiency: <20 ng/mLInsufficiency: 20-24 ng/mLOptimal: 25-80 ng/mL Lab Interpretation (test Abnormal code = 62791-1) [facility] GLUCOSE (AUTOMATED)2020-09-07 20:17:01 Test Item Value Reference Range Interpretation Comments POCT GLU (test code = 6284250273) 47 mg/dL 70-110 LL Lab Interpretation (test code = Abnormal 98628-7) [facility] GLUCOSE (AUTOMATED)2020-09-07 17:19:43 Test Item Value Reference Range Interpretation Comments POCT GLU (test code = 2039296855) 46 mg/dL 70-110 LL Lab Interpretation (test code = Abnormal 79140-6) [facility] GLUCOSE (AUTOMATED)2020-09-07 17:19:42 Test Item Value Reference Range Interpretation Comments POCT GLU (test code = 8179084442) 183 mg/dL 70-110 H Lab Interpretation (test code = Abnormal 07071-0) [facility] WITH [id number] 11:16:01 Test Item Value Reference Range Interpretation [...] RDW-SD (test code = 42.8 fL 39.0-49.9 51024-2) RDW-CV (test code = 13.1 % 12.0-15.5 788-0) PLT (test code = See_Comment [Automated 777-3) message] The sy stem which generated this result transmitted reference range : 166 - 358 10*3/ ?L. The reference r chelsie was not used to interpret this result as normal/abnormal . MPV (test code = 11.4 fL 9.5-12.9 01985-7) IPF % (test code = 3.7 % 1.3-7.7 Platelet count 3799698481) measured by fluorescence method. NRBC/100 WBC (test See_Comment [Automat ed code = 3026929836) message] The system which generated this result transmitted reference range : 0.0 - 10.0 /100 WBCs. The refer ence range was not u sed to interpret th is result as normal/abnormal . NRBC x10^3 (test code <0.01 See_Comment [Auto mated = 4649962367) message] The s ystem which generated this result transmitted reference range : 10*3/?L. The reference range was not used to interpret this result as normal/abnormal . GRAN MAT (NEUT) % 82.6 % (test code = 770-8) IMM GRAN % (test code 0.50 % = 2028397173) LYMPH % (test code = 8.8 % 736-9) MONO % (test code = 6.3 % 5905-5) EOS % (test code = 1.6 % 713-8) BASO % (test code = 0.2 % 706-2) GRAN MAT x10^3(ANC) 11.20 10*3/uL 1.88-7.09 H (test code = 8434827941) IMM GRAN x10^3 (test 0.07 10*3/uL 0.00-0.06 H code = 1398093272) LYMPH x10^3 (test 1.19 10*3/uL 1.32-3.29 L code = 731-0) MONO x10^3 (test code 0.85 10*3/uL 0.33-0.92 = 742-7) EOS x10^3 (test code 0.22 10*3/uL 0.03-0.39 = 711-2) BASO x10^3 (test code 0.03 10*3/uL 0.01-0.07 = 704-7) Lab Interpretation Abnormal (test code = 84007-3) [facility]PO[facility] (AUT[facility])2020-09-07 11:07:40 Test Item Value Reference Range Interpretation Comments POCT GLU (test code = 5025404509) 215 mg/dL 70-110 H Lab Interpretation (test code = Abnormal 27230-1) [facility]. METABOLIC PANEL (18917)2020-09-07 10:56:53 Test Item Value Reference Range Interpretation Comments NA (test code = 137 mmol/L 135-145 3134590550) K (test code = 4.6 mmol/L 3.5-5.0 4850726208) CL (test code = 109 mmol/L 98-108 H 1504833954) CO2 TOTAL (test code = 22 mmol/L 23-31 L 8528826235) AGAP (test code = 2-16 1528200473) BUN (test code = 8 mg/dL 7-23 4073017669) GLUCOSE (test code = 177 mg/dL 70-110 H 1255956971) CREATININE (test code = 0.62 mg/dL 0.50-1.04 3146573487) TOTAL BILI (test code = 0.3 mg/dL 0.1-1.6 4608662046) CALCIUM (test code = 7.9 mg/dL 8.6-10.6 L 6226896815) T PROTEIN (test code = 5.1 g/dL 6.3-8.2 L 5385768321) ALBUMIN (test code = 2.7 g/dL 3.5-5.0 L 9818432251) ALK PHOS (test code = 73 U/L 34-122 2811196719) ALTv (test code = 14 U/L 5-35 1742-6) AST(SGOT) (test code = 23 U/L 13-40 7899243757) eGFR (test code = mL/min/1.73m2 4805090824) NISHA (test code = NISHA) Association of [...] tests). Lab Interpretation Abnormal (test code = 60426-6) [facility] CampusCORTISOL STIMULATION 30 [id number] 06:01:46 Test Item Value Reference Range Interpretation Comments ISIDORO 30 (test code 17.8 ug/dL = 4303111480) NISHA (test code = Normal peak serum cortisol NISHA) is greater than 20 ug/dL 30-60 minutes after 25 units of Cosyntropin IV. Biotin has been reported to cause a positive bias, interpret results relative to patient's use of biotin. [facility] BranchCORTISOL STIMULATION 0 [id number] 05:52:48 Test Item Value Reference Range Interpretation Comments ISIDORO 0 (test code = 15.7 ug/dL 4.5-23.0 4785417895) NISHA (test code = NISHA) Biotin has been reported to cause a positive bias, interpret results relative to patient's use of biotin. Lab Interpretation (test Normal code = 58101-8) [facility] BranchCORT[facility] 60 [id number] 05:51:28 Test Item Value Reference Range Interpretation Comments ISIDORO 60 (test code 16.6 ug/dL = 0320576109) NISHA (test code = Normal peak serum cortisol NISHA) is greater than 20 ug/dL 30-60 minutes after 25 units of Cosyntropin IV. Biotin has been reported to cause a positive bias, interpret results relative to patient's use of biotin. [facility] GLUCOSE (AUTOMATED)2020-09-06 21:06:52 Test Item Value Reference Range Interpretation Comments POCT GLU (test code = 7957925443) 73 mg/dL 70-110 Lab Interpretation (test code = Normal 56940-9) [facility] GLUCOSE (AUTOMATED)2020-09-06 20:00:38 Test Item Value Reference Range Interpretation Comments POCT GLU (test code = 9821774464) 38 mg/dL 70-110 LL Lab Interpretation (test code = Abnormal 47542-9) [facility] CampusCORTISOL [id number] 18:39:49 Test Item Value Reference Range Interpretation Comments ISIDORO AM (test code = 1.6 ug/dL 4.5-23.0 L 3934020920) NISHA (test code = NISHA) Biotin has been reported to cause a positive bias, interpret results relative to patient's use of biotin. Lab Interpretation (test Abnormal code = 70283-7) [facility] GLUCOSE (AUTOMATED)2020-09-06 16:42:57 Test Item Value Reference Range Interpretation Comments POCT GLU (test code = 0612157159) 120 mg/dL 70-110 H Lab Interpretation (test code = Abnormal 33656-6) [facility] GLUCOSE (AUTOMATED)2020-09-06 12:48:51 Test Item Value Reference Range Interpretation Comments POCT GLU (test code = 3513465385) 217 mg/dL 70-110 H Lab Interpretation (test code = Abnormal 93105-7) [facility] CampusN-TERMINAL [id number] 11:44:45 Test Item Value Reference Range Interpretation Comments NT-proBNP (test code 423 pg/mL See_Comment H [Autom ated = 8210748424) message] The system which generated this result transmitted reference range : <=125. The reference range was not used to interpret this result as normal/abnormal . NISHA (test code = NISHA) Biotin has been reported to cause a negative bias, interpret results relative to patient's use of biotin. Lab Interpretation Abnormal (test code = 20380-0) [facility] CampusMAGNESIUM2021-04-11 11:36:41 Test Item Value Reference Range Interpretation Comments MAGNESIUM (test code = 1173742429) 1.7 mg/dL 1.7-2.4 Lab Interpretation (test code = Normal 94804-6) [facility] CampusCOMP. METABOLIC PANEL (16395)2020-09-06 11:36:21 Test Item Value Reference Range Interpretation Comments NA (test code = 138 mmol/L 135-145 9957127116) K (test code = 4.1 mmol/L 3.5-5.0 7347754387) CL (test code = 110 mmol/L 98-108 H 1586829243) CO2 TOTAL (test code = 25 mmol/L 23-31 5920924204) AGAP (test code = 2-16 2883470106) BUN (test code = 9 mg/dL 7-23 9816624776) GLUCOSE (test code = 196 mg/dL 70-110 H 6509143015) CREATININE (test code = 0.78 mg/dL 0.50-1.04 1185946883) TOTAL BILI (test code = 0.4 mg/dL 0.1-1.3 6843155684) CALCIUM (test code = 7.9 mg/dL 8.6-10.6 L 1487869072) T PROTEIN (test code = 5.0 g/dL 6.3-8.2 L 8698035734) ALBUMIN (test code = 2.6 g/dL 3.5-5.0 L 5152054667) ALK PHOS (test code = 65 U/L 34-122 5584576301) ALTv (test code = 13 U/L 5-35 1742-6) AST(SGOT) (test code = 24 U/L 13-40 1947365647) eGFR (test code = mL/min/1.73m2 7658485548) NISHA (test code = NISHA) Association of [...] tests). Lab Interpretation Abnormal (test code = 47827-6) [facility] CampusPHOSPHORUS2021-04-11 11:36:20 Test Item Value Reference Range Interpretation Comments PHOSPHORUS (test code = 0323455710) 4.3 mg/dL 2.5-5.0 Lab Interpretation (test code = Normal 96772-2) [facility] WITH [id number] 11:26:03 Test Item Value Reference Range Interpretation Comments WBC (test code = See_Comment [Automated 0451-2) message] The sy stem which generated this result transmitted reference range : 4.30 - 11.10 10*3/?L. The reference range was not used to interpret this result as normal/abnormal . RBC (test code = See_Comment L [Automated 244-3) message] The sy stem which generated this [...] RDW-SD (test code = 42.7 fL 39.0-49.9 81273-3) RDW-CV (test code = 13.2 % 12.0-15.5 788-0) PLT (test code = See_Comment [Automated 777-3) message] The sy stem which generated this result transmitted reference range : 166 - 358 10*3/ ?L. The reference r chelsie was not used to interpret this result as normal/abnormal . MPV (test code = 10.5 fL 9.5-12.9 79032-3) NRBC/100 WBC (test See_Comment [Automat ed code = 8658897487) message] The system which generated this result transmitted reference range : 0.0 - 10.0 /100 WBCs. The refer ence range was not u sed to interpret th is result as normal/abnormal . NRBC x10^3 (test code <0.01 See_Comment [Auto mated = 9246003431) message] The s ystem which generated this result transmitted reference range : 10*3/?L. The reference range was not used to interpret this result as normal/abnormal . GRAN MAT (NEUT) % 61.4 % (test code = 770-8) IMM GRAN % (test code 0.40 % = 1479171582) LYMPH % (test code = 26.8 % 736-9) MONO % (test code = 7.3 % 5905-5) EOS % (test code = 3.6 % 713-8) BASO % (test code = 0.5 % 706-2) GRAN MAT x10^3(ANC) 4.65 10*3/uL 1.88-7.09 (test code = 0166257675) IMM GRAN x10^3 (test 0.03 10*3/uL 0.00-0.06 code = 6447068113) LYMPH x10^3 (test code 2.03 10*3/uL 1.32-3.29 = 731-0) MONO x10^3 (test code 0.55 10*3/uL 0.33-0.92 = 742-7) EOS x10^3 (test code = 0.27 10*3/uL 0.03-0.39 711-2) BASO x10^3 (test code 0.04 10*3/uL 0.01-0.07 = 704-7) Lab Interpretation Abnormal (test code = 96436-9) [facility]POCT GLUCOSE (AUTOMATED)2020-09-06 09:31:41 Test Item Value Reference Range Interpretation Comments POCT GLU (test code = 6705496142) 119 mg/dL 70-110 H Lab Interpretation (test code = Abnormal 86538-3) [facility] CampusSEDIMENTATION [id number] 02:23:15 Test Item Value Reference Range Interpretation Comments ESR (test code = See_Comment H [Automated message] 7997354852) The system webme generated this result transmitted ref erence range: 0 - 20 m m/HR. The reference r chelsie was not used to interpret this result as normal/abnor mal. Lab Interpretation (test Abnormal code = 58605-2) [facility] CampusTROPONIN [id number] 01:26:18 Test Item Value Reference Range Interpretation Comments TROPONIN I (test 0.004 ng/mL See_Comment [Automated code = 9299289280) message] The system which generated this result [...] ? Lab Interpretation Normal (test code = 84101-0) [facility] GLUCOSE (AUTOMATED)2020-09-05 21:59:05 Test Item Value Reference Range Interpretation Comments POCT GLU (test code = 5341592343) 119 mg/dL 70-110 H Lab Interpretation (test code = Abnormal 40753-7) [facility] GLUCOSE (AUTOMATED)2020-09-05 20:48:26 Test Item Value Reference Range Interpretation Comments POCT GLU (test code = 3629498354) 237 mg/dL 70-110 H Lab Interpretation (test code = Abnormal 02500-7) [facility] GLUCOSE (AUTOMATED)2020-09-05 20:48:26 Test Item Value Reference Range Interpretation Comments POCT GLU (test code = 6149582118) 208 mg/dL 70-110 H Lab Interpretation (test code = Abnormal 91217-7) [facility] CampusLIPID PANEL (55389)(TOTAL CHOLESTEROL, TRIGLYCERIDES, HDL)2020-09-05 20:09:59 Test Item Value Reference Range Interpretation Comments CHOL (test code = 175 mg/dL 120-200 9863680725) HDL (test code = 29 mg/dL >50 L 2782873999) HDLC RATIO (test code = See_Comment H [Au tomated message] 2677625159) The system webme generated this result transmit anthony reference range : <=4.5. The refe rence range was not u sed to interpret th is result as normal/abnormal . TRIG (test code = 359 mg/dL 30-170 H 2036861825) LDL CHOL (test code = 74 mg/dL See_Comment [Auto mated message] 65623-5) The system webme generated this result transmit anthony reference range : <=160. The refe rence range was not u sed to interpret th is result as normal/abnormal . VLDL (test code = 72 mg/dL 5-60 H 8355728488) Lab Interpretation (test Abnormal code = 41032-9) [facility] CampusVITAMIN B12, [id number] 19:54:18 Test Item Value Reference Range Interpretation Comments VIT B12 (test code = 589 pg/mL 240-930 0501600486) NISHA (test code = NISHA) Biotin has been reported to cause a positive bias, interpret results relative to patient's use of biotin. Lab Interpretation (test Normal code = 02993-6) [facility] CampusPROCALCITONIN2021-04-10 16:28:13 Test Item Value Reference Range Interpretation Comments Procalcitonin (test 0.02 ng/mL <0.07 code = 6516467401) NISHA (test code = NISHA) INTERPRETATION OF [...] lung abscess/empyema. For further information please refer to:[email or web address] Lab Interpretation Normal (test code = 50240-9) [facility] CampusGLYCOSYLATED HEMOGLOBIN (A1C)2020-09-05 14:17:09 Test Item Value Reference Range Interpretation Comments HGB A1C (test code = >14.0 4.0-6.0 H 4548-4) NISHA (test code = NISHA) %A1C (NGSP) Interpretation (ADA)4.8-5.6 ? ? Normal or (Non-Diabetic Range)5.7-6.4 ? ? Increased Risk (Pre-Diabetic)>6.5 ?Diabetes Indicated Lab Interpretation Abnormal (test code = 02717-7) [facility] CampusTROPONIN [id number] 12:34:46 Test Item Value Reference Range Interpretation Comments TROPONIN I (test 0.006 ng/mL See_Comment [Automated code = 9553996422) message] The system which generated this result [...] ? Lab Interpretation Normal (test code = 03514-6) [facility] CampusN-TERMINAL [id number] 12:31:45 Test Item Value Reference Range Interpretation Comments NT-proBNP (test code 465 pg/mL See_Comment H [Autom ated = 1473555304) message] The system which generated this result transmitted reference range : <=125. The reference range was not used to interpret this result as normal/abnormal . NISHA (test code = NISHA) Biotin has been reported to cause a negative bias, interpret results relative to patient's use of biotin. Lab Interpretation Abnormal (test code = 95567-3) [facility] CampusMAGNESIUM2021-04-10 12:23:24 Test Item Value Reference Range Interpretation Comments MAGNESIUM (test code = 7392434848) 1.2 mg/dL 1.7-2.4 L Lab Interpretation (test code = Abnormal 62924-3) [facility] CampusCOMP. METABOLIC PANEL (69297)2020-09-05 12:23:06 Test Item Value Reference Range Interpretation Comments NA (test code = 138 mmol/L 135-145 2885755326) K (test code = 3.0 mmol/L 3.5-5.0 L 5287319299) CL (test code = 102 mmol/L 98-108 2351504269) CO2 TOTAL (test code = 28 mmol/L 23-31 3798056313) AGAP (test code = 2-16 8301908239) BUN (test code = 11 mg/dL 7-23 6196111608) GLUCOSE (test code = 172 mg/dL 70-110 H 0798957483) CREATININE (test code = 0.60 mg/dL 0.50-1.04 5332370269) TOTAL BILI (test code = 0.5 mg/dL 0.1-1.2 3322847759) CALCIUM (test code = 8.0 mg/dL 8.6-10.6 L 9464898121) T PROTEIN (test code = 5.9 g/dL 6.3-8.2 L 6190013714) ALBUMIN (test code = 3.2 g/dL 3.5-5.0 L 9015539460) ALK PHOS (test code = 97 U/L 34-122 4585426428) ALTv (test code = 17 U/L 5-35 1742-6) AST(SGOT) (test code = 21 U/L 13-40 0393820907) eGFR (test code = mL/min/1.73m2 5775248214) NISHA (test code = NISHA) Association of [...] tests). Lab Interpretation Abnormal (test code = 58500-6) [facility] CampusCREATINE [id number] 12:22:45 Test Item Value Reference Range Interpretation Comments CK (test code = 8336304103) 39 U/L 33-194 Lab Interpretation (test code = Normal 33085-9) [facility] CampusPROTHROMBIN TIME / [id number] 11:59:05 Test Item Value Reference Range Interpretation Comments PROTIME PATIENT (test See_Comment [Auto mated message] code = 5964-2) The system [employer] generated this result transmitted ref erence range: 12.0 - 1 4.7 Seconds. The re ference range was not u sed to interpret this result as normal/abnor mal. INR (test code = 6301-6) Nor mal INR <1.1; Warfarin Therap eutic range 2.0 to 3. 0 or 2.5 to 3.5, dep ending upon the indica tions. Lab Interpretation (test Normal code = 12757-6) [facility] CampusCT ABDOMEN PELVIS WO [id number] 11:36:381. 3-4 mm, bilateral nonobstructing renal stones [...] are seen.2. Otherwise, no acute finding.RL: [address] [facility] WITH [id number] 11:29:17 Test Item Value Reference Range Interpretation Comments WBC (test code = See_Comment [Automated 6690-2) message] The [employer] stem which generated this result transmitted reference [...] (test code = 38.2 fL 39.0-49.9 L 66653-9) RDW-CV (test code = 12.4 % 12.0-15.5 788-0) PLT (test code = See_Comment [Automated 777-3) message] The sy stem which generated this result transmitted reference range : 166 - 358 10*3/ ?L. The reference r chelsie was not used to interpret this result as normal/abnormal . MPV (test code = 10.9 fL 9.5-12.9 11785-5) NRBC/100 WBC (test See_Comment [Automat ed code = 0186842950) message] The system which generated this result transmitted reference range : 0.0 - 10.0 /100 WBCs. The refer ence range was not u sed to interpret th is result as normal/abnormal . NRBC x10^3 (test code <0.01 See_Comment [Auto mated = 8082904337) message] The s ystem which generated this result transmitted reference range : 10*3/?L. The reference range was not used to interpret this result as normal/abnormal . GRAN MAT (NEUT) % 61.7 % (test code = 770-8) IMM GRAN % (test code 0.40 % = 9237483052) LYMPH % (test code = 26.7 % 736-9) MONO % (test code = 7.7 % 5905-5) EOS % (test code = 3.0 % 713-8) BASO % (test code = 0.5 % 706-2) GRAN MAT x10^3(ANC) 5.11 10*3/uL 1.88-7.09 (test code = 7939712622) IMM GRAN x10^3 (test 0.03 10*3/uL 0.00-0.06 code = 9345956191) LYMPH x10^3 (test code 2.21 10*3/uL 1.32-3.29 = 731-0) MONO x10^3 (test code 0.64 10*3/uL 0.33-0.92 = 742-7) EOS x10^3 (test code = 0.25 10*3/uL 0.03-0.39 711-2) BASO x10^3 (test code 0.04 10*3/uL 0.01-0.07 = 704-7) Lab Interpretation Abnormal (test code = 68038-4) [facility] CampusTHYROID STIMULATING [id number] 10:36:10 Test Item Value Reference Range Interpretation Comments TSH (test code = See_Comment [Automated message] 7750981261) The system webme generated this result transmitted ref erence range: 0.45 - 4 .70 mIU/L. The refe rence range was not u sed to interpret this result as normal/abnor mal. Lab Interpretation (test Normal code = 50461-7) [facility]MAGNESIUM2021-04-10 10:04:49 Test Item Value Reference Range Interpretation Comments MAGNESIUM (test code = 4350430336) 1.3 mg/dL 1.7-2.4 L Lab Interpretation (test code = Abnormal 07652-8) [facility] CampusPHOSPHORUS2021-04-10 10:04:49 Test Item Value Reference Range Interpretation Comments PHOSPHORUS (test code = 1649580564) 3.7 mg/dL 2.5-5.0 Lab Interpretation (test code = Normal 10032-4) [facility] CampusCOVID-19 (ID NOW RAPID TESTING)2020-09-05 06:06:14 Test Item Value Reference Range Interpretation Comments SARS-CoV-2 Rapid ID NOW Not Detected Not Detected (test code = 27702-2) NISHA (test code = NISHA) ID NOW COVID-19 Assay is an isothermal nucleic acid amplification test intended for the qualitative detection of nucleic acid from SARS-CoV-2 viral RNA in nasopharyngeal (HELICOPTER OFFICER) specimens. It is used under Emergency Use [...] indicated. Lab Interpretation Normal (test code = 71145-4) [facility]2020-09-05 04:27:52 Test Item Value Reference Range Interpretation Comments POCT GLU (test code = 2420253947) 463 mg/dL 70-110 HH Lab Interpretation (test code = Abnormal 72557-1) [facility] CampusTROPONIN [id number] 03:44:02 Test Item Value Reference Range Interpretation Comments TROPONIN I (test 0.004 ng/mL See_Comment [Automated code = 2422578041) message] The system which generated this result [...] ? Lab Interpretation Normal (test code = 13338-5) [facility]TERMINAL [id number] 03:40:44 Test Item Value Reference Range Interpretation Comments NT-proBNP (test code 351 pg/mL See_Comment H [Autom ated = 5182595512) message] The system which generated this result transmitted reference range : <=125. The reference range was not used to interpret this result as normal/abnormal . NISHA (test code = NISHA) Biotin has been reported to cause a negative bias, interpret results relative to patient's use of biotin. Lab Interpretation Abnormal (test code = 81731-2) [facility]IS2021-04-10 03:36:15 Test Item Value Reference Range Interpretation Comments APPEARANCE (test code = Hazy Clear A 6728777323) COLOR (test code = Yellow Yellow 0238240331) PH (test code = 4.8-8.0 9066826930) SP GRAVITY (test code = 1.003-1.030 7729144164) GLU U QUAL (test code = 500 mg/dL Normal A 4483220029) BLOOD (test code = Negative Negative 3274288256) KETONES (test code = Negative Negative 0328780928) PROTEIN (test code = Negative Negative 2887-8) UROBILIN (test code = Normal Normal 2813196744) BILIRUBIN (test code = Negative Negative 5473971593) NITRITE (test code = Positive Negative A 6912749604) LEUK JOSEFA (test code = 75/uL Negative A 8354718934) RBC/HPF (test code = See_Comment [Autom ated message] 3397648540) The system webme generated this result transmit anthony reference range : 0 - 3 HPF. The refe rence range was not u sed to interpret th is result as normal/abnormal . WBC/HPF (test code = See_Comment H [Autom ated message] 1809429276) The system whic h generated this result transmit anthony reference range : 0 - 5 HPF. The refe rence range was not u sed to interpret th is result as normal/abnormal . BACTERIA (test code = Many Negative A 0779325901) MUCOUS (test code = Slight Negative LPF A 9868203288) SQ EPITH (test code = HPF 3654080940) YEAST BUD (test code = See_Comment H [Aut omated message] 3974217818) The system webme generated this result transmit anthony reference range : <=1 HPF. The refere nce range was not u sed to interpret th is result as normal/abnormal . Lab Interpretation (test Abnormal code = 91826-2) [facility] CampusLIPASE2021-04-10 03:31:20 Test Item Value Reference Range Interpretation Comments LIPASE (test code = 5655349336) 121 U/L 0-220 Lab Interpretation (test code = Normal 59783-1) [facility] CampusCOMP. METABOLIC PANEL (23987)2020-09-05 03:14:37 Test Item Value Reference Range Interpretation Comments NA (test code = 130 mmol/L 135-145 L 3526176871) K (test code = 3.3 mmol/L 3.5-5.0 L 9163858965) CL (test code = 90 mmol/L 98-108 L 5827382326) CO2 TOTAL (test code = 29 mmol/L 23-31 9243580557) AGAP (test code = 2-16 2210669531) BUN (test code = 13 mg/dL 7-23 3002900204) GLUCOSE (test code = 605 mg/dL 70-110 HH 0457870868) CREATININE (test code = 0.68 mg/dL 0.50-1.04 6777693726) TOTAL BILI (test code = 0.7 mg/dL 0.1-1.5 1069801143) CALCIUM (test code = 8.6 mg/dL 8.6-10.6 2641214300) T PROTEIN (test code = 7.3 g/dL 6.3-8.2 0554398339) ALBUMIN (test code = 4.3 g/dL 3.5-5.0 9986204164) ALK PHOS (test code = 138 U/L 34-122 H 7023463127) ALTv (test code = 23 U/L 5-35 1742-6) AST(SGOT) (test code = 24 U/L 13-40 7330342714) eGFR (test code = mL/min/1.73m2 8416587581) NISHA (test code = NISHA) Association of [...] tests). Lab Interpretation Abnormal (test code = 58521-5) [facility] WITH [id number] 03:03:56 Test Item Value Reference Range Interpretation Comments WBC (test code = See_Comment [Automated 5653-2) message] The sy stem which generated this result transmitted reference range : 4.30 - 11.10 10*3/?L. The reference range was not used to interpret this result as normal/abnormal . RBC (test code = See_Comment [Automated 699-8) message] The sy stem which generated this [...] RDW-SD (test code = 40.1 fL 39.0-49.9 35275-1) RDW-CV (test code = 12.7 % 12.0-15.5 788-0) PLT (test code = See_Comment H [Automated 777-3) message] The sy stem which generated this result transmitted reference range : 166 - 358 10*3/ ?L. The reference r chelsie was not used to interpret this result as normal/abnormal . MPV (test code = 11.0 fL 9.5-12.9 45005-3) NRBC/100 WBC (test See_Comment [Automat ed code = 5133038204) message] The system which generated this result transmitted reference range : 0.0 - 10.0 /100 WBCs. The refer ence range was not u sed to interpret th is result as normal/abnormal . NRBC x10^3 (test code <0.01 See_Comment [Auto mated = 4925731863) message] The s ystem which generated this result transmitted reference range : 10*3/?L. The reference range was not used to interpret this result as normal/abnormal . GRAN MAT (NEUT) % 66.6 % (test code = 770-8) IMM GRAN % (test code 0.40 % = 6561951143) LYMPH % (test code = 23.7 % 736-9) MONO % (test code = 6.1 % 5905-5) EOS % (test code = 2.7 % 713-8) BASO % (test code = 0.5 % 706-2) GRAN MAT x10^3(ANC) 5.00 10*3/uL 1.88-7.09 (test code = 5437173805) IMM GRAN x10^3 (test 0.03 10*3/uL 0.00-0.06 code = 7038244052) LYMPH x10^3 (test code 1.78 10*3/uL 1.32-3.29 = 731-0) MONO x10^3 (test code 0.46 10*3/uL 0.33-0.92 = 742-7) EOS x10^3 (test code = 0.20 10*3/uL 0.03-0.39 711-2) BASO x10^3 (test code 0.04 10*3/uL 0.01-0.07 = 704-7) Lab Interpretation Abnormal (test code = 71322-3) [facility] VENOUS BLOOD [id number] 02:38:19 Test Item Value Reference Range Interpretation Comments PH (test code = 7.32-7.42 3362065952) PCO2 JUSTIN (test code = See_Comment [Auto mated message] 5261361746) The system webme generated this result transmitted ref erence range: 41 - 51 mmHg. The reference r chelsie was not used to interpret this result as normal/abnor mal. PO2 JUSTIN (test code = See_Comment [Autom ated message] 3121633686) The system webme generated this result transmitted ref erence range: 25 - 40 mmHg. The reference r chelsie was not used to interpret this result as normal/abnor mal. HCO3 JUSTIN (test code = See_Comment H [Auto mated message] 7829144527) The system webme generated this result transmitted ref erence range: 24 - 28 mEq/L. The reference r chelsie was not used to interpret this result as normal/abnor mal. AC VBE(BEAKER) (test mEq/L code = 2206955376) Lab Interpretation (test Abnormal code = 60954-6) [facility] GLUCOSE (AUTOMATED)2020-09-05 01:59:51 Test Item Value Reference Range Interpretation Comments POCT GLU (test code = 6026878722) 557 mg/dL 70-110 HH Lab Interpretation (test code = Abnormal 83588-1) [facility] HEMOGLOBIN A1C [id number] 21:16:00 Test Item Value Reference Range Interpretation Comments POCT HBA1C (test code = 4548-4) >14 4-6 A Lab Interpretation (test code = Abnormal 79575-8) [facility]PO[facility] HEM[facility]GLOBIN A1C [id number] 21:16:00 Test Item Value Reference Range Interpretation Comments POCT HBA1C (test code = 4548-4) >14 4-6 A Lab Interpretation (test code = Abnormal 60999-3) [facility] CampusXR LUMBAR SPINE 4 [id number] 22:59:21XR LUMBAR SPINE 4 VW HISTORY: Female [...] the left kidney probablyrepresents a small renal calculus.[facility] CampusXR HIPS 2 VW [id number] 22:34:44 Impression: 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 RL: ?[id number] Clinical indication: Severe acute on chronic hip [...] hip joint space withoutevidence of fracture visualized.RL: [id number] [facility] & CHLAMYDIA AMPLIFIED [id number] 20:07:00 Test Item Value Reference Range Interpretation Comments C. trachomatis Nucleic Negative Negative Acid (test code = 16421-5) N. gonorrhoeae Nucleic Negative Negative Acid (test code = 87460-8) NISHA (test code = NISHA) Reliable results [...] clinician. Lab Interpretation Normal (test code = 79644-4) [facility] CampusTRICHOMONAS AMPLIFIED [id number] 20:02:00 Test Item Value Reference Range Interpretation Comments Trichomonas Nucleic Negative Negative Acid (test code = 50788-1) NISHA (test code = NISHA) Reliable results [...] clinician. Lab Interpretation Normal (test code = 63796-1) [facility] CampusGALV ONLY - VAGINAL PATHOGENS BY NUCLEIC ACID [id number] 18:40:00 Test Item Value Reference Range Interpretation Comments Trichomonas vaginalis Negative Negative (test code = 9931067496) Nasrin species (test Positive Negative A code = 7199790705) Nasrin glabrata (test Positive Negative A code = 19896-5) Bacterial Vaginosis Positive Negative A (test code = 98653-0) NISHA (test code = NISHA) Reliable results [...] clinician. Lab Interpretation Abnormal (test code = 74785-7) [facility] URINALYSIS W/O SPECIFIC [id number] 19:50:00 Test Item Value Reference Range Interpretation [...] code = 3257) neg Negative - Negative [facility] URINALYSIS W/O SPECIFIC [id number] 19:50:00 Test Item Value Reference Range Interpretation [...] code = 3257) neg Negative - Negative [facility] URINALYSIS W/O SPECIFIC [id number] 19:50:00 Test Item Value Reference Range Interpretation [...] code = 3257) neg Negative - Negative [facility] HEMOGLOBIN A1C [id number] 22:01:00 Test Item Value Reference Range Interpretation Comments POCT HBA1C (test code = 4548-4) >14.0 4-6 [facility] HEMOGLOBIN A1C [id number] 22:01:00 Test Item Value Reference Range Interpretation Comments POCT HBA1C (test code = 4548-4) >14.0 4-6 [facility] CampusBI SCREENING MAMMOGRAM [id number] 22:41:31Examination:BI SCREENING MAMMOGRAM BILATERAL History:Patient is 49 [...] the study and agree with the resident's/fellow's report.[facility]PO[facility]SE (AUTOMATED)2019-08-16 13:03:00 Test Item Value Reference Range Interpretation Comments POCT GLU (test code = 4584871836) 228 mg/dL 70-110 H Lab Interpretation (test code = Abnormal 07463-3) [facility] CampusMAGNESIUM2020-03-20 10:40:00 Test Item Value Reference Range Interpretation Comments MAGNESIUM (test code = 4487773186) 4.7 mg/dL 1.7-2.4 H Lab Interpretation (test code = Abnormal 88564-7) [facility] CampusBASIC METABOLIC PANEL (NA, K, CL, CO2, GLUCOSE, BUN, CREATININE, CA)2019-08-16 10:36:00 Test Item Value Reference Range Interpretation Comments NA (test code = 135 mmol/L 135-145 2603764345) K (test code = 3.9 mmol/L 3.5-5 4046484256) CL (test code = 107 mmol/L 98-108 2699321839) CO2 TOTAL (test code = 22 mmol/L 23-31 L 2910209690) AGAP (test code = 2-16 3537273650) BUN (test code = 19 mg/dL 7-23 5665017109) GLUCOSE (test code = 236 mg/dL 70-110 H 6047933245) CREATININE (test code = 0.91 mg/dL 0.5-1.04 0468850858) CALCIUM (test code = 6.6 mg/dL 8.6-10.6 L 3078542901) eGFR Calculation mL/min/1.73m2 (Non-) (test code = 2916075640) eGFR Calculation mL/min/1.73m2 () (test code = 3176698021) NISHA (test code = NISHA) Association of [...] tests). Lab Interpretation Abnormal (test code = 97793-6) [facility] WITH [id number] 10:13:00 Test Item Value Reference Range Interpretation Comments WBC (test code = See_Comment H [Automated 3790-2) message] The sy stem which generated this [...] RDW-SD (test code = 41.6 fL 39-49.9 89089-9) RDW-CV (test code = 12.8 % 12-15.5 788-0) PLT (test code = See_Comment [Automated 777-3) message] The sy stem which generated this result transmitted reference range : 166 - 358 10*3/ ?L. The reference r chelsie was not used to interpret this result as normal/abnormal . MPV (test code = 10.6 fL 9.5-12.9 87061-6) NRBC/100 WBC (test See_Comment [Automat ed code = 2186468885) message] The system which generated this result transmitted reference range : 0.0 - 10.0 /100 WBCs. The refer ence range was not u sed to interpret th is result as normal/abnormal . NRBC x10^3 (test code <0.01 See_Comment [Auto mated = 4508909812) message] The s ystem which generated this result transmitted reference range : 10*3/?L. The reference range was not used to interpret this result as normal/abnormal . GRAN MAT (NEUT) % 77.9 % (test code = 770-8) IMM GRAN % (test code 0.80 % = 3941207893) LYMPH % (test code = 13.8 % 736-9) MONO % (test code = 6.8 % 5905-5) EOS % (test code = 0.3 % 713-8) BASO % (test code = 0.4 % 706-2) GRAN MAT x10^3(ANC) 8.66 10*3/uL 1.88-7.09 H (test code = 2277933192) IMM GRAN x10^3 (test 0.09 10*3/uL 0-0.06 H code = 4732342306) LYMPH x10^3 (test code 1.54 10*3/uL 1.32-3.29 = 731-0) MONO x10^3 (test code 0.76 10*3/uL 0.33-0.92 = 742-7) EOS x10^3 (test code = 0.03 10*3/uL 0.03-0.39 711-2) BASO x10^3 (test code 0.04 10*3/uL 0.01-0.07 = 704-7) Lab Interpretation Abnormal (test code = 63825-1) [facility] GLUCOSE (AUTOMATED)2019-08-16 09:54:00 Test Item Value Reference Range Interpretation Comments POCT GLU (test code = 8620505934) 218 mg/dL 70-110 H Lab Interpretation (test code = Abnormal 69912-4) [facility] GLUCOSE (AUTOMATED)2019-08-16 07:12:00 Test Item Value Reference Range Interpretation Comments POCT GLU (test code = 9877371920) 355 mg/dL 70-110 H Lab Interpretation (test code = Abnormal 07162-9) [facility] GLUCOSE (AUTOMATED)2019-08-16 05:06:00 Test Item Value Reference Range Interpretation Comments POCT GLU (test code = 8623152629) 457 mg/dL 70-110 HH Lab Interpretation (test code = Abnormal 29311-6) [facility] HEAD WO [id number] 00:55:12 No acute intracranial hemorrhage or mass [...] clear. IMPRESSIONNo acute intracranial hemorrhage or mass effect.[facility] GLUCOSE (AUTOMATED)2019-08-15 22:15:00 Test Item Value Reference Range Interpretation Comments POCT GLU (test code = 5327294641) 304 mg/dL 70-110 H Lab Interpretation (test code = Abnormal 79245-9) [facility] CampusaPTT2020-03-19 21:04:00 Test Item Value Reference Range Interpretation Comments APTT Patient (test code See_Comment L [Au tomated message] = 3173-2) The system webme generated this result transmitted ref erence range: 26 - 36 Seconds. The reference range was not used to int erpret this result as normal/abnormal . Lab Interpretation (test Abnormal code = 88581-6) [facility] GLUCOSE (AUTOMATED)2019-08-15 20:41:00 Test Item Value Reference Range Interpretation Comments POCT GLU (test code = 3904174104) 274 mg/dL 70-110 H Lab Interpretation (test code = Abnormal 37785-8) [facility] GLUCOSE (AUTOMATED)2019-08-15 17:10:00 Test Item Value Reference Range Interpretation Comments POCT GLU (test code = 1873810936) 308 mg/dL 70-110 H Lab Interpretation (test code = Abnormal 22780-0) [facility] ACT LOW [id number] 15:44:00 Test Item Value Reference Range Interpretation Comments ACTLR (test code = See_Comment H [Automat ed message] 9330392811) The system webme generated this result transmitted ref erence range: 89 - 169 Seconds. The reference range was not used to int erpret this result as normal/abnormal . Lab Interpretation (test Abnormal code = 84902-0) [facility] ACT LOW [id number] 15:22:00 Test Item Value Reference Range Interpretation Comments ACTLR (test code = See_Comment H [Automat ed message] 1669264937) The system webme generated this result transmitted ref erence range: 89 - 169 Seconds. The reference range was not used to int erpret this result as normal/abnormal . Lab Interpretation (test Abnormal code = 13132-5) [facility] ACT LOW [id number] 14:44:00 Test Item Value Reference Range Interpretation Comments ACTLR (test code = See_Comment H [Automat ed message] 4832903281) The system webme generated this result transmitted ref erence range: 89 - 169 Seconds. The reference range was not used to int erpret this result as normal/abnormal . Lab Interpretation (test Abnormal code = 72783-1) [facility] ACT LOW [id number] 14:26:00 Test Item Value Reference Range Interpretation Comments ACTLR (test code = See_Comment H [Automat ed message] 8440772381) The system webme generated this result transmitted ref erence range: 89 - 169 Seconds. The reference range was not used to int erpret this result as normal/abnormal . Lab Interpretation (test Abnormal code = 99452-8) [facility] METABOLIC PANEL (NA, K, CL, CO2, GLUCOSE, BUN, CREATININE, CA)2019-08-15 11:06:00 Test Item Value Reference Range Interpretation Comments NA (test code = 134 mmol/L 135-145 L 0591688700) K (test code = 4.3 mmol/L 3.5-5 8611227437) CL (test code = 105 mmol/L 98-108 3277978842) CO2 TOTAL (test code = 22 mmol/L 23-31 L 7016051941) AGAP (test code = 2-16 0439211514) BUN (test code = 21 mg/dL 7-23 7722186069) GLUCOSE (test code = 410 mg/dL 70-110 H 7668442333) CREATININE (test code = 0.92 mg/dL 0.5-1.04 0321212182) CALCIUM (test code = 7.5 mg/dL 8.6-10.6 L 6624874455) eGFR Calculation mL/min/1.73m2 (Non-) (test code = 6353503857) eGFR Calculation mL/min/1.73m2 () (test code = 1562783879) NISHA (test code = NISHA) Association of [...] tests). Lab Interpretation Abnormal (test code = 54236-8) [facility]MAGNESIUM2020-03-19 11:06:00 Test Item Value Reference Range Interpretation Comments MAGNESIUM (test code = 9756680624) 1.6 mg/dL 1.7-2.4 L Lab Interpretation (test code = Abnormal 57059-9) [facility]usaPTT (for use with Heparin Practice Guideline). Note: Draw and Send all Lab STAT.2019-08-15 10:47:00 Test Item Value Reference Range Interpretation Comments APTT Patient (test code See_Comment H [Au tomated message] = 3173-2) The system webme generated this result transmitted ref erence range: 26 - 36 Seconds. The reference range was not used to int erpret this result as normal/abnormal . Lab Interpretation (test Abnormal code = 27789-9) [facility] WITH [id number] 10:46:00 Test Item Value Reference Range Interpretation [...] RDW-SD (test code = 39.1 fL 39-49.9 96046-4) RDW-CV (test code = 12.4 % 12-15.5 788-0) PLT (test code = See_Comment [Automated 777-3) message] The sy stem which generated this result transmitted reference range : 166 - 358 10*3/ ?L. The reference r chelsie was not used to interpret this result as normal/abnormal . MPV (test code = 10.9 fL 9.5-12.9 63446-2) NRBC/100 WBC (test See_Comment [Automat ed code = 8853317512) message] The system which generated this result transmitted reference range : 0.0 - 10.0 /100 WBCs. The refer ence range was not u sed to interpret th is result as normal/abnormal . NRBC x10^3 (test code <0.01 See_Comment [Auto mated = 2205180037) message] The s ystem which generated this result transmitted reference range : 10*3/?L. The reference range was not used to interpret this result as normal/abnormal . GRAN MAT (NEUT) % 80.6 % (test code = 770-8) IMM GRAN % (test code 0.50 % = 9207969444) LYMPH % (test code = 12.5 % 736-9) MONO % (test code = 5.8 % 5905-5) EOS % (test code = 0.4 % 713-8) BASO % (test code = 0.2 % 706-2) GRAN MAT x10^3(ANC) 8.94 10*3/uL 1.88-7.09 H (test code = 0072357151) IMM GRAN x10^3 (test 0.06 10*3/uL 0-0.06 code = 3020281549) LYMPH x10^3 (test code 1.39 10*3/uL 1.32-3.29 = 731-0) MONO x10^3 (test code 0.64 10*3/uL 0.33-0.92 = 742-7) EOS x10^3 (test code = 0.04 10*3/uL 0.03-0.39 711-2) BASO x10^3 (test code <0.03 0.01-0.07 = 704-7) Lab Interpretation Abnormal (test code = 51913-7) [facility] GLUCOSE (AUTOMATED)2019-08-15 09:48:00 Test Item Value Reference Range Interpretation Comments POCT GLU (test code = 7769640010) 319 mg/dL 70-110 H Lab Interpretation (test code = Abnormal 62231-2) [facility] GLUCOSE (AUTOMATED)2019-08-15 06:35:00 Test Item Value Reference Range Interpretation Comments POCT GLU (test code = 0487270791) 479 mg/dL 70-110 HH Lab Interpretation (test code = Abnormal 78706-5) [facility] GLUCOSE (AUTOMATED)2019-08-15 03:10:00 Test Item Value Reference Range Interpretation Comments POCT GLU (test code = 1917065630) 450 mg/dL 70-110 HH Lab Interpretation (test code = Abnormal 11144-0) [facility]PT (for use with Heparin Practice Guideline). Note: Draw and Send all Lab STAT.2019-08-15 02:31:00 Test Item Value Reference Range Interpretation Comments APTT Patient (test code See_Comment HH [Au tomated message] = 3173-2) The system webme generated this result transmitted ref erence range: 26 - 36 Seconds. The reference range was not used to int erpret this result as normal/abnormal . Lab Interpretation (test Abnormal code = 13445-8) [facility] METABOLIC PANEL (NA, K, CL, CO2, GLUCOSE, BUN, CREATININE, CA)2019-08-15 02:30:00 Test Item Value Reference Range Interpretation Comments NA (test code = 131 mmol/L 135-145 L 2822962386) K (test code = 4.6 mmol/L 3.5-5 0171715165) CL (test code = 102 mmol/L 98-108 2026769094) CO2 TOTAL (test code = 21 mmol/L 23-31 L 3201378619) AGAP (test code = 2-16 7621258472) BUN (test code = 21 mg/dL 7-23 7515981028) GLUCOSE (test code = 479 mg/dL 70-110 HH 7208228335) CREATININE (test code = 1.08 mg/dL 0.5-1.04 H 8251457097) CALCIUM (test code = 7.3 mg/dL 8.6-10.6 L 1275871741) eGFR Calculation mL/min/1.73m2 (Non-) (test code = 4918482660) eGFR Calculation mL/min/1.73m2 () (test code = 3262225442) NISHA (test code = NISHA) Association of [...] tests). Lab Interpretation Abnormal (test code = 00634-7) [facility] GLUCOSE (AUTOMATED)2019-08-15 01:59:00 Test Item Value Reference Range Interpretation Comments POCT GLU (test code = 2241536163) 471 mg/dL 70-110 HH Lab Interpretation (test code = Abnormal 97537-8) [facility] GLUCOSE (AUTOMATED)2019-08-14 22:49:00 Test Item Value Reference Range Interpretation Comments POCT GLU (test code = 1176109283) 399 mg/dL 70-110 H Lab Interpretation (test code = Abnormal 40271-9) [facility] GLUCOSE (AUTOMATED)2019-08-14 20:45:00 Test Item Value Reference Range Interpretation Comments POCT GLU (test code = 6321403717) 473 mg/dL 70-110 HH Lab Interpretation (test code = Abnormal 44532-1) [facility] (for use with Heparin Practice Guideline). Note: Draw and Send all Lab STAT.2019-08-14 19:52:00 Test Item Value Reference Range Interpretation Comments APTT Patient (test code = See_Comment [ Automated message] 3173-2) The system webme generated this result transmitted ref erence range: 26 - 36 Seconds. The re ference range was not u sed to interpret this result as normal/abnor mal. Lab Interpretation (test Normal code = 75410-4) [facility] GLUCOSE (AUTOMATED)2019-08-14 17:24:00 Test Item Value Reference Range Interpretation Comments POCT GLU (test code = 421 mg/dL 70-110 H Notifi ed Provider 5311465824) Lab Interpretation (test Abnormal code = 54937-7) [facility] CampusGAL[facility] ONLY - INFLUENZA A B RSV [id number] 16:21:00 Test Item Value Reference Range Interpretation Comments Influenza A virus by PCR (test code Negative Negative = 98633-3) Influenza B virus by PCR (test code Negative Negative = 77889-1) RSV by PCR (test code = 64974-9) Negative Negative Lab Interpretation (test code = Normal 69931-6) [facility] GLUCOSE (AUTOMATED)2019-08-14 14:00:00 Test Item Value Reference Range Interpretation Comments POCT GLU (test code = 6415422784) 314 mg/dL 70-110 H Lab Interpretation (test code = Abnormal 00131-9) [facility] (NA, K, CL, CO2, GLUCOSE, BUN, CREATININE, CA)2019-08-14 11:02:00 Test Item Value Reference Range Interpretation Comments NA (test code = 135 mmol/L 135-145 9319636009) K (test code = 4.4 mmol/L 3.5-5 4380476130) CL (test code = 106 mmol/L 98-108 1266964832) CO2 TOTAL (test code = 23 mmol/L 23-31 0277383830) AGAP (test code = 2-16 9132824242) BUN (test code = 15 mg/dL 7-23 4758430263) GLUCOSE (test code = 273 mg/dL 70-110 H 1181809123) CREATININE (test code = 1.04 mg/dL 0.5-1.04 5372131618) CALCIUM (test code = 7.5 mg/dL 8.6-10.6 L 4579928075) eGFR Calculation mL/min/1.73m2 (Non-) (test code = 5543910406) eGFR Calculation mL/min/1.73m2 () (test code = 3294364094) NISHA (test code = NISHA) Association of [...] tests). Lab Interpretation Abnormal (test code = 31155-3) [facility] 11:02:00 Test Item Value Reference Range Interpretation Comments MAGNESIUM (test code = 9274077547) 1.6 mg/dL 1.7-2.4 L Lab Interpretation (test code = Abnormal 95785-9) [facility] (for use with Heparin Practice Guideline). Note: [...] mal. Lab Interpretation (test Normal code = 22067-9) [facility] WITH [id number] 10:28:00 Test Item Value Reference Range Interpretation Comments WBC (test code = See_Comment [Automated 8390-2) message] The sy stem which [...] RDW-SD (test code = 41.0 fL 39-49.9 14097-6) RDW-CV (test code = 12.6 % 12-15.5 788-0) PLT (test code = See_Comment [Automated 777-3) message] The sy stem which generated this result transmitted reference range : 166 - 358 10*3/ ?L. The reference r chelsie was not used to interpret this result as normal/abnormal . MPV (test code = 10.3 fL 9.5-12.9 48155-4) NRBC/100 WBC (test See_Comment [Automat ed code = 8382905614) message] The system which generated this result transmitted reference range : 0.0 - 10.0 /100 WBCs. The refer ence range was not u sed to interpret th is result as normal/abnormal . NRBC x10^3 (test code <0.01 See_Comment [Auto mated = 7909901105) message] The s ystem which generated this result transmitted reference range : 10*3/?L. The reference range was not used to interpret this result as normal/abnormal . GRAN MAT (NEUT) % 63.5 % (test code = 770-8) IMM GRAN % (test code 0.30 % = 3608527571) LYMPH % (test code = 19.9 % 736-9) MONO % (test code = 6.3 % 5905-5) EOS % (test code = 9.7 % 713-8) BASO % (test code = 0.3 % 706-2) GRAN MAT x10^3(ANC) 6.48 10*3/uL 1.88-7.09 (test code = 7513630348) IMM GRAN x10^3 (test 0.03 10*3/uL 0-0.06 code = 9922339096) LYMPH x10^3 (test code 2.03 10*3/uL 1.32-3.29 = 731-0) MONO x10^3 (test code 0.64 10*3/uL 0.33-0.92 = 742-7) EOS x10^3 (test code = 0.99 10*3/uL 0.03-0.39 H 711-2) BASO x10^3 (test code 0.03 10*3/uL 0.01-0.07 = 704-7) Lab Interpretation Abnormal (test code = 56042-6) [facility] GLUCOSE (AUTOMATED)2019-08-14 01:29:00 Test Item Value Reference Range Interpretation Comments POCT GLU (test code = 2787963651) 236 mg/dL 70-110 H Lab Interpretation (test code = Abnormal 04060-1) [facility] (for use with Heparin Practice Guideline). Note: Draw and Send all Lab STAT.2019-08-13 23:18:00 Test Item Value Reference Range Interpretation Comments APTT Patient (test code = See_Comment [ Automated message] 3173-2) The system [employer] generated this result transmitted ref erence range: 26 - 36 Seconds. The re ference range was not u sed to interpret this result as normal/abnor mal. Lab Interpretation (test Normal code = 26634-0) [facility] GLUCOSE (AUTOMATED)2019-08-13 23:09:00 Test Item Value Reference Range Interpretation Comments POCT GLU (test code = 4630273278) 305 mg/dL 70-110 H Lab Interpretation (test code = Abnormal 01734-2) [facility] GLUCOSE (AUTOMATED)2019-08-13 19:29:00 Test Item Value Reference Range Interpretation Comments POCT GLU (test code = 7953003828) 310 mg/dL 70-110 H Lab Interpretation (test code = Abnormal 29768-8) [id number] 14:04:00 Test Item Value Reference Range Interpretation Comments TROPONIN I (test 0.012 ng/mL See_Comment [Automated code = 4516426245) message] The system which generated this result [...] ? Lab Interpretation Normal (test code = 18649-8) [facility]2019-08-13 13:16:00 Test Item Value Reference Range Interpretation Comments POCT GLU (test code = 3263700336) 281 mg/dL 70-110 H Lab Interpretation (test code = Abnormal 76323-2) [facility] WITH [id number] 12:20:00 Test Item Value Reference Range Interpretation [...] RDW-SD (test code = 40.6 fL 39-49.9 98901-3) RDW-CV (test code = 12.7 % 12-15.5 788-0) PLT (test code = See_Comment [Automated 777-3) message] The sy stem which generated this result transmitted reference range : 166 - 358 10*3/ ?L. The reference r chelsie was not used to interpret this result as normal/abnormal . MPV (test code = 10.7 fL 9.5-12.9 58792-1) NRBC/100 WBC (test See_Comment [Automat ed code = 6790357887) message] The system which generated this result transmitted reference range : 0.0 - 10.0 /100 WBCs. The refer ence range was not u sed to interpret th is result as normal/abnormal . NRBC x10^3 (test code <0.01 See_Comment [Auto mated = 8030383498) message] The s ystem which generated this result transmitted reference range : 10*3/?L. The reference range was not used to interpret this result as normal/abnormal . GRAN MAT (NEUT) % 71.8 % (test code = 770-8) IMM GRAN % (test code 0.50 % = 0961113885) LYMPH % (test code = 12.3 % 736-9) MONO % (test code = 6.9 % 5905-5) EOS % (test code = 8.0 % 713-8) BASO % (test code = 0.5 % 706-2) GRAN MAT x10^3(ANC) 9.08 10*3/uL 1.88-7.09 H (test code = 5379663251) IMM GRAN x10^3 (test 0.06 10*3/uL 0-0.06 code = 4082001515) LYMPH x10^3 (test code 1.56 10*3/uL 1.32-3.29 = 731-0) MONO x10^3 (test code 0.87 10*3/uL 0.33-0.92 = 742-7) EOS x10^3 (test code = 1.01 10*3/uL 0.03-0.39 H 711-2) BASO x10^3 (test code 0.06 10*3/uL 0.01-0.07 = 704-7) Lab Interpretation Abnormal (test code = 08502-4) [facility]2020-03-17 09:19:00 Test Item Value Reference Range Interpretation Comments MAGNESIUM (test code = 5467733448) 1.5 mg/dL 1.7-2.4 L Lab Interpretation (test code = Abnormal 70011-6) [facility] CampusXR CHEST 1 [id number] 08:54:25Impression: Moderate cardiomegaly without acute pulmonary process. Status post mediansternotomy. RL: 460 AFC: [id number] Indication: Chest pain Comparison: None Findings: Single [...] acute pulmonary process. Status post mediansternotomy.RL: 460AFC: [id number] signed by Gemini Martins MD, PhD at 08/13/2019 3:54 AMUnFoundation [facility] PasoGlycosylated Hemoglobin (A1C)2019-08-13 07:12:00 Test Item Value Reference Range Interpretation Comments HGB A1C (test code = 4548-4) 10.8 % 4-6 H Lab Interpretation (test code = Abnormal 45840-3) [facility] CampusN-TERMINAL [id number] 06:39:00 Test Item Value Reference Range Interpretation Comments NT-proBNP (test code 384 pg/mL See_Comment H [Autom ated = 5714006300) message] The system which generated this result transmitted reference range : <=125. The reference range was not used to interpret this result as normal/abnormal . NISHA (test code = NISHA) Biotin has been reported to cause a negative bias, interpret results relative to patient's use of biotin. Lab Interpretation Abnormal (test code = 29296-5) [facility] CampusTROPONIN [id number] 06:39:00 Test Item Value Reference Range Interpretation Comments TROPONIN I (test 0.008 ng/mL See_Comment [Automated code = 7895245570) message] The system which generated this result [...] ? Lab Interpretation Normal (test code = 85953-6) [facility] METABOLIC PANEL (NA, K, CL, CO2, GLUCOSE, BUN, CREATININE, CA)2019-08-13 06:35:00 Test Item Value Reference Range Interpretation Comments NA (test code = 134 mmol/L 135-145 L 5898936145) K (test code = 4.1 mmol/L 3.5-5 7875083662) CL (test code = 102 mmol/L 98-108 6292722687) CO2 TOTAL (test code = 22 mmol/L 23-31 L 3938095635) AGAP (test code = 2-16 4715381051) BUN (test code = 23 mg/dL 7-23 3420634828) GLUCOSE (test code = 324 mg/dL 70-110 H 7218537535) CREATININE (test code = 1.07 mg/dL 0.5-1.04 H 9846712312) CALCIUM (test code = 8.4 mg/dL 8.6-10.6 L 6084130169) eGFR Calculation mL/min/1.73m2 (Non-) (test code = 7464753849) eGFR Calculation mL/min/1.73m2 () (test code = 1468776639) NISHA (test code = NISHA) Association of [...] tests). Lab Interpretation Abnormal (test code = 16345-9) [facility]2020-03-17 06:07:00 Test Item Value Reference Range Interpretation Comments APTT Patient (test code = See_Comment [ Automated message] 3173-2) The system [employer] generated this result transmitted ref erence range: 26 - 36 Seconds. The re ference range was not u sed to interpret this result as normal/abnor mal. Lab Interpretation (test Normal code = 78818-8) [facility] CampusProthrombin Time / [id number] 06:07:00 Test Item Value Reference Range Interpretation Comments PROTIME PATIENT (test See_Comment [Auto mated message] code = 5964-2) The system [employer] generated this result transmitted ref erence range: 10.1 - 1 2.6 Seconds. The re ference range was not u sed to interpret this result as normal/abnor mal. INR (test code = 6301-6) Nor mal INR <1.1; Warfarin Therap eutic range 2.0 to 3. 0 or 2.5 to 3.5, dep ending upon the indica tions. Lab Interpretation (test Normal code = 22706-1) [facility]"
[2021-06-03 21:49] LABS: Urine Blood Trace-intact (Negative); Urine Glucose 3+ (Negative); Urine Protein Negative (Negative); Urine Specific Gravity 1.015 (1.005-1.030)
[2021-06-03 22:13] LABS: Urine Bacteria <20 /HPF (<20); Urine RBC <5 /HPF (NONE SEEN)
[2021-06-03 23:19] LABS: Urine Specific Gravity/Preg 1.015 (1.005-1.030)
[2021-06-03 23:27] LABS: Absolute Lymphocytes (CBC) 1.7 K/uL (0.7-4.9); Hematocrit 55.6 % (36.0-45.0); Lymphocytes % 29.2 % (15.3-44.8); RBC Red Blood Cell Count 6.07 M/uL (3.86-4.86)
[2021-06-03] MEDS ORDERED: INSULIN -REGULAR HUMAN 50 UNIT/0.5 ML ML ONE (23:32)
[2021-06-03] MEDS ORDERED: NA CHLORIDE 0.9% 1,000 ML ONE (23:33)
[2021-06-03 23:55] LABS: ALT/SGPT 24 U/L (12-78); AST/SGOT 9 U/L (15-37); Albumin 3.5 g/dL (3.4-5.0); Alkaline Phosphatase 229 U/L (45-117); BUN Blood Urea Nitrogen 11 mg/dL (7-18); Bicarbonate 25 mmol/L (21-32); Bilirubin Direct 0.1 mg/dL (0-0.2); Bilirubin Total 0.5 mg/dL (0.2-1.0); Lipase 78 U/L (73-393); Potassium 4.3 mmol/L (3.5-5.1); Protein, Total 9.2 g/dL (6.4-8.2); Sodium Level 127 mmol/L (136-145)
[2021-06-03 23:58] LABS: Glucose Level 676 mg/dL (74-106)
[2021-06-04] MEDS ORDERED: NA CHLORIDE 0.9% 1,000 ML ONE (01:51)
[2021-06-04] MEDS ORDERED: INSULIN -REGULAR HUMAN 50 UNIT/0.5 ML ML ONE (01:51)
[2021-06-04] MEDS ORDERED: FLUCONAZOLE 100 MG TAB ONE (02:26)
[2021-06-04] MEDS ORDERED: CEFTRIAXONE 1000 MG/VIAL ONE (02:28)
[2021-06-04] MEDS ORDERED: FENTANYL CITR 100 MCG/2 ML ONE (02:28)
[2021-06-04] MEDS ORDERED: NA CHLORIDE 0.9% 50 ML ONE (02:28)
--- NOTE | 2021-06-04 03:20 | ER ---
Nurse's Notes [facility] Name: Karen Shah Age: 51 yrs Sex: Female : 1970 Arrival Date: 06/03/2021 Time: 18:41 Bed 12 Private MD: Diagnosis: Vaginitis, vulvitis and vulvovaginitis in diseases classified elsewhere;Diabetes mellitus due to underlying condition with hyperglycemia Presentation: 06/03 20:39 Chief complaint: Patient states: Grayish mucus came out when I went to go pee. My vc1 private area hurts when I go pee. I was here 3 weeks ago having trouble peeing. I am a real bad diabetic. Yesterday I started having pain in my lower back kind of at the top of my butt. Coronavirus screen: Vaccine status: Patient reports receiving the 2nd dose of the covid vaccine. At this time, the client does not indicate any symptoms associated with coronavirus-19. Ebola Screen: No symptoms or risks identified at this time. Initial Sepsis Screen: Does the patient meet any 2 criteria? No. Patient's initial sepsis screen is negative. Does the patient have a suspected source of infection? No. Patient's initial sepsis screen is negative. Risk Assessment: Do you want to hurt yourself or someone else? Patient reports no desire to harm self or others. Onset of symptoms was June 02, 2021. 20:39 Method Of Arrival: Wheelchair vc1 20:39 Acuity: ARIEL 3 vc1 Triage Assessment: 20:44 General: Appears in no apparent distress. uncomfortable, Behavior is calm, cooperative, vc1 appropriate for age. Pain: Complains of pain in groin. Historical: - Allergies: 06/04 00:23 Adhesives; bb 00:23 Toradol; bb 00:23 tramadol; bb Screenin/06 23:00 Abuse screen: Denies threats or abuse. Nutritional screening: No deficits noted. bb Tuberculosis screening: No symptoms or risk factors identified. Fall Risk None identified. Assessment: 23:00 General: Appears in no apparent distress. Behavior is calm, cooperative. Neuro: Level bb of Consciousness is awake, alert, obeys commands, Oriented to person, place, time, situation. Cardiovascular: Capillary refill < 3 seconds Patient's skin is warm and dry. Respiratory: Respiratory effort is even, unlabored. GI: Abdomen is round. : Reports vaginal pain. Derm: Skin is dry, Skin is pale, Skin temperature is warm. Musculoskeletal: Amputation of left leg. 06/04 00:24 Reassessment: Patient is alert, oriented x 3, equal unlabored respirations, skin bb warm/dry/pink. awaiting diagnostic results, IV patent, intact with fluids infusing, family at bedside. 02:44 Reassessment: Patient is alert, oriented x 3, equal unlabored respirations, skin bb warm/dry/pink. pt with IV site intact, patent with fluids infusing, spouse at bedside. 04:51 Reassessment: Patient is alert, oriented x 3, equal unlabored respirations, skin bb warm/dry/pink. pt verbalized understanding of and agrees to plan of care discharge instructions given pt assisted to exit via wheelchair accompanied by spouse. Vital Signs: 06/03 20:39 BP 201 / 122; Pulse 106; Resp 18; Temp 98.7; Pulse Ox 100% on R/A; Weight 64.41 kg; vc1 Height 5 ft. 4 in. (162.56 cm); Pain 10/10; 06/04 00:15 BP 153 / 87; Pulse 96; Resp 16 S; Temp 98.5(O); Pulse Ox 100% on R/A; bb 02:44 BP 138 / 91; Pulse 95; Resp 16 S; Temp 98.5(O); Pulse Ox 99% on R/A; bb 04:51 BP 158 / 83; Pulse 88; Resp 16 S; Temp 98.3(O); Pulse Ox 98% on R/A; bb 06/03 20:39 Body Mass Index 24.37 (64.41 kg, 162.56 cm) vc1 ED Course: 06/03 18:41 Patient arrived in ED. mr 20:43 Triage completed. vc1 20:53 Isidro Mcdaniel PA is PHCP. cp 20:53 Scar Garsia MD is Attending Physician. cp 23:00 Patient has correct armband on for positive identification. Call light in reach. Side bb rails up X2. Adult w/ patient. 23:00 Inserted saline lock: 24 gauge in right forearm, using aseptic technique. ,using bb aseptic technique. by [employer] tech. 23:19 Kalee Sheehan, RN is Primary Nurse. bb 06/04 04:50 No provider procedures requiring assistance completed. IV discontinued, intact, bb bleeding controlled, No redness/swelling at site. Pressure dressing applied. Administered Medications: 06/03 23:30 Drug: NS 0.9% 1000 ml Route: IV; Rate: 1 bolus; Site: right forearm; bb 06/04 01:50 Follow up: IV Status: Completed infusion; IV Intake: 950ml bb 06/03 23:30 Drug: Insulin Regular Human 10 units {Co-Signature: vc1 (Nichole Huerta RN).} Route: bb IVP; Site: right forearm; 06/04 01:50 Follow up: Response: No adverse reaction; Blood sugar is lowered bb 02:01 Drug: NS 0.9% 1000 ml Route: IV; Rate: 1 bolus; Site: right forearm; bb 04:27 Follow up: IV Status: Completed infusion; IV Intake: 950ml bb 02:01 Drug: Insulin Regular Human 10 units {Co-Signature: vc1 (Nichole Huerta RN).} Route: bb IVP; Site: right forearm; 04:39 Follow up: Response: Blood sugar is lowered bb 02:45 Drug: DiFLUcan (fluconazole) 200 mg Route: PO; bb 03:40 Follow up: Response: No adverse reaction bb 02:46 Drug: Rocephin - (cefTRIAXone) 1 grams Route: IVPB; Infused Over: 30 mins; Site: right bb forearm; 03:00 Follow up: IV Status: Completed infusion; IV Intake: 50ml bb 02:46 Drug: fentaNYL (PF) 25 mcg {Note: RASS 0.} Route: IVP; Site: right forearm; bb 03:40 Follow up: Response: No adverse reaction; Pain is decreased; RASS: Alert and Calm (0) bb Intake: 01:50 IV: 950ml; Total: 950ml. bb 03:00 IV: 50ml; Total: 1000ml. bb 04:27 IV: 950ml; Total: 1950ml. bb Outcome: 03:19 Discharge ordered by . cp 04:52 Discharged to home via wheelchair, with family. bb 04:52 Condition: stable 04:52 Discharge instructions given to patient, Instructed on discharge instructions, follow up and referral plans. medication usage, Demonstrated understanding of instructions, follow-up care, medications, Prescriptions given X 3. 04:53 Patient left the ED. bb Signatures: Thea Hartman mr Kalee Sheehan, RN RN bb Isidro Mcdaniel PA PA cp [place], CHIDI Varela RN vc1 Nichole Huerta RN vc1
--- NOTE | 2021-06-04 03:20 | EDPHYS ---
Physician Documentation [facility] Name: Karen Shah Age: 51 yrs Sex: Female : 1970 Arrival Date: 06/03/2021 Time: 18:41 Bed 12 Private MD: ED Physician Scar Garsia HPI: 06/03 21:15 This 51 yrs old Female presents to ER via Wheelchair with complaints of cp Vaginal Pain. 21:15 The patient presents with urinary symptoms, vaginal pain. Onset: The symptoms/episode cp began/occurred yesterday. 21:15 Patient c/o discharge when she urinates. Patient reports history of poorly controlled cp diabetes. 21:15 Associated signs and symptoms: Pertinent negatives: fever, vomiting, abdominal pain. cp Historical: - Allergies: 06/04 00:23 Adhesives; bb 00:23 Toradol; bb 00:23 tramadol; bb ROS: 06/03 21:15 Constitutional: Negative for body aches, chills, fever, poor PO intake. cp 21:15 Eyes: Negative for injury, pain, redness, and discharge. cp 21:15 ENT: Negative for ear pain, sore throat, difficulty swallowing, difficulty handling secretions. 21:15 Respiratory: Negative for cough, shortness of breath, wheezing. 21:15 Abdomen/GI: Negative for abdominal pain, nausea, vomiting, and diarrhea. 21:15 Back: Positive for pain at rest, pain with movement, of the low back. 21:15 Skin: Negative for rash. 21:15 Neuro: Negative for altered mental status, headache, weakness. 21:15 All other systems are negative. cp Exam: 21:20 Head/Face: Normocephalic, atraumatic. cp 21:20 Constitutional: The patient appears in no acute distress, alert, awake, non-toxic, well developed, well nourished. 21:20 Eyes: Periorbital structures: appear normal, Conjunctiva: normal, no exudate, no injection, Sclera: no appreciated abnormality, Lids and lashes: appear normal, bilaterally. 21:20 ENT: External ear(s): are unremarkable, Nose: is normal, Mouth: Lips: moist, Oral mucosa: moist, Posterior pharynx: Airway: no evidence of obstruction, patent. 21:20 Chest/axilla: Inspection: normal. 21:20 Cardiovascular: Rate: tachycardic, Rhythm: regular. 21:20 Respiratory: the patient does not display signs of respiratory distress, Respirations: normal, no use of accessory muscles, no retractions, labored breathing, is not present, Breath sounds: are clear throughout, no decreased breath sounds, no stridor, no wheezing. 21:20 Abdomen/GI: Inspection: abdomen appears normal, Palpation: abdomen is soft and non-tender, in all quadrants. 21:20 Back: pain, that is mild, of the low back area, ROM is normal. 06/04 01:15 Skin: mild erythema noted to upper area of buttocks and coccyx area with skin intact cp and no appreciable swelling. 01:15 : Pelvic Exam: External exam: is normal, Speculum exam: no bleeding is noted, vaginal cp vault with erythema and swelling, pain upon insertion of speculum, discharge, light green colored, the nurse was present for the exam. Vital Signs: 06/03 20:39 BP 201 / 122; Pulse 106; Resp 18; Temp 98.7; Pulse Ox 100% on R/A; Weight 64.41 kg; vc1 Height 5 ft. 4 in. (162.56 cm); Pain 10/10; 06/04 00:15 BP 153 / 87; Pulse 96; Resp 16 S; Temp 98.5(O); Pulse Ox 100% on R/A; bb 02:44 BP 138 / 91; Pulse 95; Resp 16 S; Temp 98.5(O); Pulse Ox 99% on R/A; bb 04:51 BP 158 / 83; Pulse 88; Resp 16 S; Temp 98.3(O); Pulse Ox 98% on R/A; bb 06/03 20:39 Body Mass Index 24.37 (64.41 kg, 162.56 cm) vc1 MDM: 06/03 23:00 Differential diagnosis: anabelle infection, cervicitis, pelvic inflammatory disease, cp urinary tract infection, vaginosis, STD. 23:01 Patient medically screened. cp 06/04 03:18 Data reviewed: vital signs, nurses notes, lab test result(s). cp 03:18 Counseling: I had a detailed discussion with the patient and/or guardian regarding: the cp historical points, exam findings, and any diagnostic results supporting the discharge/admit diagnosis, lab results, the need for outpatient follow up, a family practitioner, to return to the emergency department if symptoms worsen or persist or if there are any questions or concerns that arise at home. Response to treatment: the patient's symptoms have markedly improved after treatment, and as a result, I will discharge patient. 06/03 20:54 Order name: Urine Microscopic Only; Complete Time: 23:04 cp 06/03 20:54 Order name: Basic Metabolic Panel; Complete Time: 00:15 cp 06/04 01:18 Interpretation: Normal except: NA 127; CL 90; GLUC 676; GFR 48. cp 06/03 20:54 Order name: CBC with Diff; Complete Time: 23:44 cp 06/03 23:44 Interpretation: Normal except: RBC 6.07; HGB 18.3; HCT 55.6. cp 06/03 20:54 Order name: Hepatic Function; Complete Time: 01:18 cp 06/04 01:18 Interpretation: Normal except: AST 9; ALK 229; TP 9.2; GLOB 5.7; A/G 0.6. 06/03 20:54 Order name: Lipase; Complete Time: 01:18 cp 06/04 01:19 Interpretation: LIP 78; Reviewed. 06/03 20:54 Order name: Ketone, Serum; Complete Time: 01:18 cp 06/03 21:01 Order name: Glucose, Ancillary Testing; Complete Time: 23:04 EDMS 06/03 21:49 Order name: Urine Dipstick-Ancillary; Complete Time: 23:04 EDMS 06/03 23:04 Interpretation: Reviewed. 06/03 22:59 Order name: COVID-19 (Coronavirus) Document "Date of Onset" if Symptomatic ds4 06/03 23:09 Order name: Urine --Ancillary (enter results); Complete Time: 23:44 ds4 06/03 23:10 Order name: SARS-COV-2 RT PCR; Complete Time: 01:18 EDMS 06/04 01:18 Order name: GC (GONORR/CHLAMYDIA) Probe cp 06/04 01:18 Order name: Wet Prep; Complete Time: 02:02 cp 06/03 20:45 Order name: Urine Dipstick-Ancillary (obtain specimen); Complete Time: 23:08 vc1 06/03 20:54 Order name: Urine Test (obtain specimen); Complete Time: 23:08 cp 06/03 20:54 Order name: IV Saline Lock; Complete Time: 22:57 cp 06/03 20:54 Order name: Labs collected and sent; Complete Time: 23:08 cp 06/03 20:54 Order name: Accucheck Blood Glucose; Complete Time: 23:08 cp 06/03 23:46 Order name: Pelvic Exam Setup; Complete Time: 01:00 cp 06/04 02:11 Order name: Glucose, Ancillary Testing; Complete Time: 02:20 EDMS 06/04 03:18 Order name: BMP cp Administered Medications: 06/03 23:30 Drug: NS 0.9% 1000 ml Route: IV; Rate: 1 bolus; Site: right forearm; 06/04 01:50 Follow up: IV Status: Completed infusion; IV Intake: 950ml 06/03 23:30 Drug: Insulin Regular Human 10 units {Co-Signature: vc1 (Nichole Huerta RN).} Route: bb IVP; Site: right forearm; 06/04 01:50 Follow up: Response: No adverse reaction; Blood sugar is lowered 02:01 Drug: NS 0.9% 1000 ml Route: IV; Rate: 1 bolus; Site: right forearm; bb 04:27 Follow up: IV Status: Completed infusion; IV Intake: 950ml bb 02:01 Drug: Insulin Regular Human 10 units {Co-Signature: vc1 (Nichole Huerta RN).} Route: bb IVP; Site: right forearm; 04:39 Follow up: Response: Blood sugar is lowered bb 02:45 Drug: DiFLUcan (fluconazole) 200 mg Route: PO; bb 03:40 Follow up: Response: No adverse reaction bb 02:46 Drug: Rocephin - (cefTRIAXone) 1 grams Route: IVPB; Infused Over: 30 mins; Site: right bb forearm; 03:00 Follow up: IV Status: Completed infusion; IV Intake: 50ml bb 02:46 Drug: fentaNYL (PF) 25 mcg {Note: RASS 0.} Route: IVP; Site: right forearm; bb 03:40 Follow up: Response: No adverse reaction; Pain is decreased; RASS: Alert and Calm (0) bb Disposition: 06:53 Co-signature as Attending Physician, Scar Garsia MD. pkl Disposition Summary: 06/04/21 03:19 Discharge Ordered Location: Home cp Problem: new cp Symptoms: have improved cp Condition: Stable cp Diagnosis - Vaginitis, vulvitis and vulvovaginitis in diseases classified elsewhere cp - Diabetes mellitus due to underlying condition with hyperglycemia cp Followup: cp - With: Private Physician - When: 1 - 2 days - Reason: Recheck today's complaints Discharge Instructions: - Discharge Summary Sheet cp - Vaginitis cp - Blood Glucose Monitoring, Adult cp - Diabetes Mellitus and Nutrition, Adult cp Forms: - Medication Reconciliation Form cp - Thank You Letter cp - Antibiotic Education cp - Prescription Opioid Use cp Prescriptions: - Diflucan 150 mg Oral Tablet - take 1 tablet by ORAL route one time for 1 day take second tablet 48 hours cp later; 2 tablet; Refills: 0, Product Selection Permitted - Doxycycline Hyclate 100 mg Oral Tablet - take 1 tablet by ORAL route every 12 hours for 7 days; 14 tablet; Refills: 0, cp Product Selection Permitted - Metronidazole 500 mg Oral Tablet - take 1 tablet by ORAL route every 8 hours for 7 days; 21 tablet; Refills: 0, cp Product Selection Permitted Signatures: Dispatcher [employer] EDRI Scar Garsia MD MD pkl Ballard, Brenda, RN RN bb Burton Jones, TUBE OPERATOR-C TUBE OPERATOR-Cla1 Isidro Mcdaniel PA PA cp Calcote, Vanessa, RN RN vc1 Nichole Huerta RN vc1 Corrections: (The following items were deleted from the chart) 06/03 23:10 22:59 CORONAVIRUS ordered. EDRI EDRI 06/04 02:44 06/03 21:25 Constitutional: The patient appears in no acute distress, alert, awake, cp non-toxic, well developed, well nourished, cp 06/04 01:44 06/03 21:25 Head/Face: Normocephalic, atraumatic. cp cp 06/04 01:44 06/03 21:25 Eyes: Periorbital structures: appear normal, Conjunctiva: normal, no cp exudate, no injection, Sclera: no appreciated abnormality, Lids and lashes: appear normal, bilaterally, cp 06/04 02:44 06/03 21:25 ENT: External ear(s): are unremarkable, Nose: is normal, Mouth: Lips: cp moist, Oral mucosa: moist, Posterior pharynx: Airway: no evidence of obstruction, patent, cp 06/04 01:06/03 21:25 Chest/axilla: Inspection: normal, cp cp 06/04 01:06/03 21:25 Cardiovascular: Rate: tachycardic, Rhythm: regular, cp cp 06/04 01:06/03 21:25 Respiratory: the patient does not display signs of respiratory distress, cp Respirations: normal, no use of accessory muscles, no retractions, labored breathing, is not present, Breath sounds: are clear throughout, no decreased breath sounds, no stridor, no wheezing, cp 06/04 01:06/03 21:25 Abdomen/GI: Inspection: abdomen appears normal, Palpation: abdomen is soft cp and non-tender, in all quadrants, cp 06/04 21:25 Back: pain, that is mild, of the low back area, ROM is normal, cp cp
[2021-06-04 04:27] LABS: BUN Blood Urea Nitrogen 11 mg/dL (7-18); Bicarbonate 21 mmol/L (21-32); Glucose Level 266 mg/dL (74-106); Potassium 4.2 mmol/L (3.5-5.1); Sodium Level 138 mmol/L (136-145)
[2021-06-04 05:05] VITALS: BP 158/83; TEMP 98.3; O2SAT 98
[2021-06-08 04:17] LABS: C.trachomatis RNA,TMA Not Detected (Not Detected)
== END 2021-06-04 04:53 | disposition home or self-care (01) ==
LOC: ER 18:39
DX: N76.0 Acute vaginitis (principal); N76.2 Acute vulvitis; E11.65 Type 2 diabetes mellitus with hyperglycemia; Z20.822 Contact with and (suspected) exposure to COVID-19; Z88.6 Allergy status to analgesic agent
CPT/HCPCS: 96361; 85025; 80048 ×2; 36415; 82010; 81025; 82947 ×2; 80076; 87210; 83690; 87590; 87490; 96375; 96374; 99283; U0003; J3010; J7030 ×2; 81003; 81015

== ENCOUNTER 2021-06-06 19:36 | Emergency (ER) | payer OTHER ==
--- OUTSIDE RECORDS SUMMARY | 2021-06-06 20:05 | XMS REPORT | Continuity of Care Document ---
:1970 Author Organization [facility] t Address [address] [place] [address] Care Team Providers Name Role Phone Igor [...] Expiration Date Vero neal MEDICARE PART A [id number] 2017 \\T\\ B 00:00:00 Problems Condition Condition Condition Status Onset Resolution Last Treating Co mments Source Name Details Category Date Date Treatment Clinician Date UTI UTI Disease Active Univers (urinary (urinary 8-20 ity of tract tract 00:00: [place] infection) infection) 00 Nm dical Branch Dizziness Dizziness Disease Active Uni vers 8-20 ity of 00:00: [place] 00 Medical Branch Weakness Weakness Disease Active Unive rs 8-20 ity of 00:00: [place] 00 [facility] CAD in CAD in Disease Active Univers cachil dehe cachil dehe 7-05 ity of artery artery 00:00: [place] [facility] Hypoglycem Hypoglycem Disease Active U nivers ia ia 6-11 ity of 00:00: [place] 00 [facility] Protein Protein Disease Active [...] 00:00: [place] involving involving 00 Medi blanquita c[place] de[place] Branch coronary coronary artery of artery of cachil dehe c[place]il dehe heart heart without without angina angina pectoris [...] 00:00: [place] involving involving 00 Medi blanquita [place] Branch coronary coronary artery of artery of cachil dehe [place] heart heart without without angina angina pectoris [...] Added automatic ally from request for surgery [id number] GERD GERD Disease Active Univers (gastroeso (gastroeso it y of phageal phageal [place] reflux reflux Medical disease) disease) Branch DM DM Disease Active Univers (diabetes (diabetes ity of mellitus) mellitus) [facility] Depression Depression Disease Active U nivers ity of [facility] CVA CVA Disease Active Univers (cerebral (cerebral ity of vascular vascular [place] accident) accident) [facility] CHF CHF Disease Active Univers (congestiv (congestiv it y of e heart e heart [place] failure) failure) [facility] Anxiety Anxiety Disease Active Univers ity of [facility] Angina Angina Disease Active Univers pectoris pectoris ity of [facility] H/O right H/O right Disease [...] [facility], [facility]x of CABG Hx of CABG Disease Active U nivers ity of [facility] Migraines Migraines Disease Active Uni vers ity of [facility] Seizures Seizures Disease Active Unive rs ity of [facility] Unilateral Unilateral Disease Active U nivers AKA, right AKA, right it y of [facility] High High Disease Active Univers cholestero cholestero it y of l l [facility] HTN HTN Disease Active Univers (hypertens (hypertens it y of ion) ion) [facility] Unilateral Unilateral Disease Active U nivers AKA, right AKA, right it y of [facility] Unilateral Unilateral Disease Active U nivers AKA, right AKA, right it y of [facility] History of History of Problem [...] [facility] Chronic Chronic Problem Active [facility] pain pain [facility] disorder disorder [facility] MCFP MCFP Problem Active [facility] current current [facility] - use of use of [facility] insulin insulin l [facility] Neuropathy Neuropathy Problem Active [facility] Depression Depression Problem Active [facility] with with [facility] - anxiety anxiety [facility] HTN HTN Problem Active [facility] (hypertens (hypertens Charley kes - ion), ion), [facility]oria benign benign l [facility] Seizures Seizures Problem [facility] Coronary Coronary Problem Active [facility] t artery artery [facility] - disease disease Memoria involving involving l coronary coronary Outpat i bypass bypass ent graft of graft of Clinic s cachil dehe cachil dehe heart with heart with angina angina pectoris pectoris Dependent Dependent Problem Active [facility] on on [facility] - wheelchair wheelchair [facility] moria [facility] History of History of Problem Active [facility] right right [facility] - above 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 SD[facility] 2020-05-08 2020-05-08 99 University o f Alcohol Std Drinks 00:00:00 00:00:00 [facility] Branch History [facility] 2020-05-08 2020-05-08 99 [place] o f Alcohol Binge 00:00:00 00:00:00 [facility] Branch Tobacco Comment 2020-04-03 2020-04-03 smoking since 12 Uni versity of 00:00:00 00:00:00 years old [facility] Alcohol Comment 2019-10-11 2019-10-11 rare Universit y of 00:00:00 00:00:00 [facility] Cigarettes smoked 2018-02-21 2018-02-21 Univers ity of current (pack per 00:00:00 00:00:00 [facility] ) - Reported Branch Tobacco use and 2018-02-21 2018-02-21 Never used Universit y of exposure 00:00:00 00:00:00 [facility] Sex [birth year] Universit y of 00:00:00 00:00:00 [facility] Smoking Status Start Date Stop Date Source Current every day smoker 2018-02-21 00:00:00 Uni versity of [facility] Medications Ordered Filled Start Stop Current Ordering Indication Dosage Frequency Signature Comments Components Source Medication Medication Date Date Medication? Clinician (SIG) Name Name MIRTAZAPINE 2020-05 Yes [id number] 15mg TAKE 1 Univers 15 mg 2-20 TABLET BY ity of tablet 00:00: MOUTH AT [place] 00 BEDTIME Medical Branch cefTRIAXone 2020- No 1000mg 1,000 mg, Univers (ROCEPHIN) 02-12 IV ity of 1,000 mg in 22:45: 10:44 [place], [place] NaCl 0.9% 00 :00 ONCE, 1 Medical (NS) 50 mL dose, On Bran h MINI-BAG Mon02/12/21 at 1745, Administer over 30 Minutes, 50 mL
Reas on for Anti-Infec tive: Empiric Therapy for Suspected Infection< br>Empiric Therapy Site: Urine
D uration of therapy: 72 hours cefTRIAXone No 1000mg 1,000 mg, Univers (ROCEPHIN) 02-12 IV ity of 1,000 mg in 22:45: 10:44 [place], [place] NaCl 0.9% 00 :00 ONCE, 1 Medical (NS) 50 mL dose, On Branc h MINI-BAG Mon02/12/21 at 1745, Administer over 30 Minutes, 50 mL
Reas on for Anti-Infec tive: Empiric Therapy for Suspected Infection< br>Empiric Therapy Site: Urine
D uration of therapy: 72 hours insulin 2020- No 10U 10 Units, Univ ers regular 02-12 Slow IV ity of human 21:30: 21:29 Sandra [place] (HUMULIN R) 00 :00 ONCE, 1 Medic al injection dose, On Branch 10 Units 02/12/21 at 1630, Routine NaCl 0.9% 2020- No 1000mL at 999 Uni vers (NS) bolus 02-12 mL/hr, ity of infusion 21:30: 22:08 1,000 mL, Raffy as 1,000 mL 00 :00 [facility] dose, On Mon02/12/21 at [...] 1,000 mL 00 :00 IV Medical Piggyback, [place] ONCE, 1 dose, On Mon02/12/21 at 1630, STAT cefpodoxime 2020- No [id number] 100mg Take 1 Univers 100 mg 02-12 tablet by ity of tablet 00:00: 04:59 mouth 2 [place] 00 :00 (two) Medical times [place] daily for 7 days. cefpodoxime 2020- No [id number] 100mg Take 1 Univers 100 mg 02-12 tablet by ity of tablet 00:00: 04:59 mouth 2 [place] 00 :00 (two) Medical times [place] daily for 7 days. glipiZIDE 2020- No [id number] 10mg Take 1 U nivers 10 mg 01-18 tablet by ity of tablet 00:00: 04:59 mouth [place] 00 :00 daily for Medical 30 days. [place] glipiZIDE 2020- No [id number] 10mg Take 1 U nivers 10 mg 01-18 tablet by ity of tablet 00:00: 04:59 mouth [place] 00 :00 daily for Medical 30 days. [place] glipiZIDE 2020- No [id number] 10mg Take 1 U nivers 10 mg 01-18 tablet by ity of tablet 00:00: 00:00 mouth [place] 00 :00 daily for Medical 30 days. [place] glipiZIDE Yes 10mg 10 mg, Univer s (GLUCOTROL) 01-17 Oral, ity of tablet 10 14:00: DAILY, [place] mg 00 First dose Medical on [place] Branch 01/17/21 at 0900, Until Discontinu ed, [...] Therapy: Other (see Comments) nicotine 2020- No [id number] 1{patch Apply 1 Univers mg/24 hr 01-1720 } Patch to ity of patch 00:00: 04:59 area(s) [place] 00 :00 every 24 Medical (twenty-fo Branch ur) hours for 28 days. nicotine 14 2020- No [id number] 1{patch Apply 1 Univers mg/24 hr 01-1720 } Patch to ity of patch 00:00: 04:59 area(s) [place] 00 :00 every 24 Medical (twenty-fo Branch ur) hours for 28 days. nicotine 14 2020- No [id number] 1{patch Apply 1 Univers mg/24 hr 01-1720 } Patch to ity of patch 00:00: 04:59 area(s) [place] 00 :00 every 24 Medical (twenty-fo Branch ur) hours for 28 days. nicotine 14 2020- No [id number] 1{patch Apply 1 Univers mg/24 hr 01-1720 } Patch to ity of patch 00:00: 04:59 area(s) [place] 00 :00 every 24 Medical (twenty-fo Branch ur) hours for 28 days. nicotine 2020- No [id number] 1{patch Apply 1 Univers mg/24 hr 01-1720 } Patch to ity of patch 00:00: 04:59 area(s) [place] 00 :00 every 24 Medical (twenty-fo Branch ur) hours for 28 days. ciprofloxac 2020- No [id number] 500mg Take 1 Univers in HCl 500 01-17 tablet by ity of mg tablet 00:00: 04:59 mouth [place] 00 :00 every 12 Medical (twelve) Branch hours for 7 days. ciprofloxac No [id number] 500mg Take 1 Univers in HCl 500 01-17 tablet by ity of mg tablet 00:00: 04:59 mouth [place] 00 :00 every 12 Medical (twelve) Branch hours for 7 days. KCL 2020- No 60meq 60 mEq, Univers (KLOR-CON 01-16 Oral, ity of M20) tablet 16:00: 16:43 ONCE, 1 [place] 60 mEq 00 :00 dose, [facility] 01/16/21 at Branch 1100, Routine cefTRIAXone Yes 1000mg 1,000 mg, Univers (ROCEPHIN) 01-16 IV ity of 1,000 mg in 14:30: Piggyback, [place] NaCl 0.9% 00 Q24H ABX, Medic al (NS) 50 mL First dose [facility] MINI-BAG on [facility] 01/16/21 [...] First dose Medi blanquita 40 mg on [facility] 01/16/21 at 0900, Until Discontinu ed, Routine ezetimibe Yes 10mg 10 mg, Univer s (ZETIA) 01-16 Oral, ity of tablet 10 14:00: DAILY, [place] mg 00 First dose Medical on [facility] 01/16/21 at 0900, Until Discontinu ed, Routine clopidogreL Yes 75mg 75 mg, Univ ers (PLAVIX) 01-16 Oral, ity of tablet 75 14:00: DAILY, [place] mg 00 First dose Medical on [facility] 01/16/21 at 0900, Until Discontinu ed, Routine aspirin Yes 81mg 81 mg, Univers chewable 01-16 Oral, ity of tablet 81 14:00: DAILY, [place] mg 00 First dose Medical on [facility] 01/16/21 at 0900, Until Discontinu ed, Routine fluconazole 2020- No 150mg 150 mg, U nivers (DIFLUCAN) 01-16 Oral, ity of tablet 150 14:00: 20:40 DAILY, [place] mg 00 :05 First dose Medical on [facility] 01/16/21 at 0900, Until Discontinu ed, TRANG
Re ason for Anti-Infec tive: Documented Infection< br>Documen anthony Infection Site: Urine
D uration of Therapy: Other (see Comments) Sliding Yes Subcutaneo Univ ers Scale 01-16 us, TID ity of Insulin - 13:00: MEALS, [place] Lispro 00 First dose Medical (HumaLOG) + (after [place] Fsbg last Testing modificati on) on [facility] 01/16/21 at 0800, Until Discontinu ed, Routine insulin NPH 15U 15 Units, Univers and regular 01-16 Subcutaneo i ty of human 70-30 02:30: 01:47 , ONCE, [place] (HUMULIN 00 :00 1 dose, Medical 70-30 U-100 [facility] INSULIN) 01/15/21 at 100 unit/mL 2130, (70-30) Routine injection 15 Units mirtazapine Yes 15mg 15 mg, Univ ers (REMERON) 01-16 Oral, QHS, ity of tablet 15 02:00: First dose [place] mg 00 on Mon [facility] 01/15/21 at Branch 2100, Until Discontinu ed, Routine atorvastati Yes 80mg 80 mg, Univ ers n (LIPITOR) 01-16 Oral, QHS, it y of tablet 80 02:00: First dose [place] mg 00 on Mon [facility] 01/15/21 at Branch 2100, Until Discontinu ed, Routine gabapentin Yes 800mg 800 mg, Uni vers (NEURONTIN) 01-16 Oral, TID, it y of tablet 800 01:00: First dose [place] mg 00 on Mon [facility] 01/15/21 at Branch 2000, Until Discontinu ed, Routine nicotine Yes 1{patch 1 Patch, Un cali (NICODERM) 01-15 } Topical, ity o f 14 mg/24 hr 23:15: Administer [place] patch 1 00 over 24 Medical Patch Hours, [place] Q24H, First dose on Mon01/15/21 at 1815, Until Discontinu ed, Routine insulin NPH Yes 40U 40 Units, U nivers and regular 8- Subcutaneo it y of human 70-30 22:45: us, BIDAC, [place] (HUMULIN 00 First dose [...] 01-15 IV Push, ity of mg 21:58: Q4HPMos[place], [place] 52 Starting Medical Fri [place] 01/15/21 at 1658, Until Discontinu ed, Routine, Pain (scale 7-10) ondansetron 0 Yes 4mg 4 mg, Slow Univers (ZOFRAN 8- IV Push, ity of (PF)) 21:32: [place], [place] injection 4 17 Starting Medi blanquita [...] Routine, Pain (scale 1-3) gabapentin 2020-0 Yes [id number] 800mg Take 1 Univers 800 mg 8-20 tablet by ity of tablet 00:00: mouth (three) Medical times Branch daily. gabapentin 2020-0 Yes [id number] 800mg Take 1 Univers 800 mg 8-20 tablet by ity of tablet 00:00: mouth (three) Medical times Branch daily. gabapentin 2020-0 Yes [id number] 800mg Take 1 Univers 800 mg 8-20 tablet by ity of tablet 00:00: mouth ([facility]) Medical times Branch daily. gabapentin 2020-0 Yes [id number] 800mg Take 1 Univers 800 mg 8-20 tablet by ity of tablet 00:00: mouth (three) Medical times Branch daily. gabapentin 2020-0 Yes [id number] 800mg Take 1 Univers 800 mg 8-20 tablet by ity of tablet 00:00: mouth (three) Medical times Branch daily. gabapentin 2020-0 Yes [id number] 800mg Take 1 Univers 800 mg 8-20 tablet by ity of tablet 00:00: mouth (three) Medical times Branch daily. gabapentin 2020-0 Yes [id number] 800mg Take 1 Univers 800 mg 8-20 tablet by ity of tablet 00:00: mouth (three) Medical times Branch daily. gabapentin 2020-0 Yes [id number] 800mg Take 1 Univers 800 mg 8-20 tablet by ity of tablet 00:00: mouth (three) Medical times Branch daily. gabapentin 2020-0 Yes [id number] 800mg Take 1 Univers 800 mg 8-20 tablet by ity of tablet 00:00: mouth (three) Medical times Branch daily. gabapentin 2020-0 Yes [id number] 800mg Take 1 Univers 800 mg 8-20 tablet by ity of tablet 00:00: mouth 3 [place] 00 (three) Medical times Branch daily. ondansetron 2020-0 Yes [id number] 4mg Take 1 Univers 4 mg 8-06 tablet by ity of disintegrat 00:00: mouth [place] ing tablet 00 every 8 Medica l (eight) Branch hours as needed for Nausea and Vomiting (N/V). ondansetron 0 Yes [id number] 4mg Take 1 Univers 4 mg 8-06 tablet by ity of disintegrat 00:00: mouth [place] ing tablet 00 every 8 Medica l (eight) Branch hours as needed for Nausea and Vomiting (N/V). ondansetron 0 Yes [id number] 4mg Take 1 Univers 4 mg 8-06 tablet by ity of disintegrat 00:00: mouth [place] ing tablet 00 every 8 Medica l (eight) Branch hours as needed for Nausea and Vomiting (N/V). ondansetron 0 Yes [id number] 4mg Take 1 Univers 4 mg 8-06 tablet by ity of disintegrat 00:00: mouth [place] ing tablet 00 every 8 Medica l (eight) Branch hours as needed for Nausea and Vomiting (N/V). ondansetron 0 Yes [id number] 4mg Take 1 Univers 4 mg 8-06 tablet by ity of disintegrat 00:00: mouth [place] ing tablet 00 every 8 Medica l (eight) Branch hours as needed for Nausea and Vomiting (N/V). ondansetron 0 Yes [id number] 4mg Take 1 Univers 4 mg 8-06 tablet by ity of disintegrat 00:00: mouth [place] ing tablet 00 every 8 Medica l (eight) Branch hours as needed for Nausea and Vomiting (N/V). ondansetron 2020-0 Yes [id number] 4mg Take 1 Univers 4 mg 8-06 tablet by ity of disintegrat 00:00: mouth [place] ing tablet 00 every 8 Medica l (eight) Branch hours as needed for Nausea and Vomiting (N/V). glucagon 3 Yes [id number] 1{spray Use 1 Univers mg/actuatio 8-06 } [place] in ity of n [place] 00:00: each [place] 00 nostril as Medical needed Branch (hypoglyce filomena). ondansetron Yes [id number] 4mg Take 1 Univers 4 mg 8-06 tablet by ity of disintegrat 00:00: mouth [place] ing tablet 00 every 8 Medica l (eight) Branch hours as needed for Nausea and Vomiting (N/V). glucagon 3 Yes [id number] 1{spray Use 1 Univers mg/actuatio 8-06 } [place] in ity of n [place] 00:00: each [place] 00 nostril as Medical needed Branch (hypoglyce filomena). ondansetron Yes [id number] 4mg Take 1 Univers 4 mg 8-06 tablet by ity of disintegrat 00:00: mouth [place] ing tablet 00 every 8 Medica l (eight) Branch hours as needed for Nausea and Vomiting (N/V). glucagon 3 Yes [id number] 1{spray Use 1 Univers mg/actuatio 8-06 } [place] in ity of n [place] 00:00: each [place] 00 nostril as Medical needed Branch (hypoglyce filomena). ondansetron Yes [id number] 4mg Take 1 Univers 4 mg 8-06 tablet by ity of disintegrat 00:00: mouth [place] ing tablet 00 every 8 Medica l (eight) Branch hours as needed for Nausea and Vomiting (N/V). ondansetron Yes [id number] 4mg Take 1 Univers 4 mg 8-06 tablet by ity of disintegrat 00:00: mouth [place] ing tablet 00 every 8 Medica l (eight) Branch hours as needed for Nausea and Vomiting (N/V). ondansetron Yes [id number] 4mg Take 1 Univers 4 mg 8-06 tablet by ity of disintegrat 00:00: mouth [place] ing tablet 00 every 8 Medica l (eight) Branch hours as needed for Nausea and Vomiting (N/V). glucagon 3 2020- No [id number] 1{spray Use 1 Univers mg/actuatio 8-06 08-20 } [place] in ity of n [place] 00:00: 00:00 each [place] 00 :00 nostril as Medical needed Branch (hypoglyce filomena). glucagon 3 2020-2020- No [id number] 1{spray Use 1 Univers mg/actuatio 01-0120 } [place] in ity of n [place] 00:00: 00:00 each [place] 00 :00 nostril as Medical needed Branch (hypoglyce filomena). glucagon 3 2020- No [id number] 1{spray Use 1 Univers mg/actuatio 01-0120 } [place] in ity of n [place] 00:00: 00:00 each [place] 00 :00 nostril as Medical needed Branch (hypoglyce filomena). GABAPENTIN Yes [id number] TAKE 1 Univers 800 mg 7-23 TABLET BY ity of tablet 00:00: MOUTH [place] 00 THREE Medical TIMES Branch DAILY GABAPENTIN 2020-0 2020- No [id number] TAKE 1 Univers 800 mg 7-23 08-19 TABLET BY ity of tablet 00:00: 00:00 MOUTH [place] 00 :00 THREE Medical TIMES Branch DAILY GABAPENTIN 2020-0 2020- No [id number] TAKE 1 Univers 800 mg 7-23 08-19 TABLET BY ity of tablet 00:00: 00:00 MOUTH [place] 00 :00 THREE Medical TIMES Branch DAILY aspirin 81 0 Yes [id number] 81mg Take 1 U nivers mg chewable 7-07 tablet by ity of tablet 00:00: mouth [place] 00 daily. Medical Branch clopidogreL 0 Yes [id number] 75mg Take 1 Univers 75 mg 7-07 tablet by ity of tablet 00:00: mouth [place] 00 daily. Medical Branch aspirin 81 2020-0 Yes [id number] 81mg Take 1 U nivers mg chewable 7-07 tablet by ity of tablet 00:00: mouth [place] 00 daily. Medical Branch clopidogreL 2020-0 Yes [id number] 75mg Take 1 Univers 75 mg 7-07 tablet by ity of tablet 00:00: mouth [place] 00 daily. Medical Branch aspirin 81 2020-0 Yes [id number] 81mg Take 1 U nivers mg chewable 7-07 tablet by ity of tablet 00:00: mouth [place] 00 daily. Medical Branch clopidogreL 2020-0 Yes [id number] 75mg Take 1 Univers 75 mg 7-07 tablet by ity of tablet 00:00: mouth [place] 00 daily. Medical Branch aspirin 81 2020-0 Yes [id number] 81mg Take 1 U nivers mg chewable 7-07 tablet by ity of tablet 00:00: mouth [place] 00 daily. Medical Branch clopidogreL 2020-0 Yes [id number] 75mg Take 1 Univers 75 mg 7-07 tablet by ity of tablet 00:00: mouth [place] 00 daily. Medical Branch aspirin 81 2020-0 Yes [id number] 81mg Take 1 U nivers mg chewable 7-07 tablet by ity of tablet 00:00: mouth [place] 00 daily. Medical Branch clopidogreL 2020-0 Yes [id number] 75mg Take 1 Univers 75 mg 7-07 tablet by ity of tablet 00:00: mouth [place] 00 daily. Medical Branch aspirin 81 2020-0 Yes [id number] 81mg Take 1 U nivers mg chewable 7-07 tablet by ity of tablet 00:00: mouth [place] 00 daily. Medical Branch clopidogreL 2020-0 Yes [id number] 75mg Take 1 Univers 75 mg 7-07 tablet by ity of tablet 00:00: mouth [place] 00 daily. Medical Branch aspirin 81 2020-0 Yes [id number] 81mg Take 1 U nivers mg chewable 7-07 tablet by ity of tablet 00:00: mouth [place] 00 daily. Medical Branch clopidogreL 2020-0 Yes [id number] 75mg Take 1 Univers 75 mg 7-07 tablet by ity of tablet 00:00: mouth [place] 00 daily. Medical Branch aspirin 81 2020-0 Yes [id number] 81mg Take 1 U nivers mg chewable 7-07 tablet by ity of tablet 00:00: mouth [place] 00 daily. Medical Branch clopidogreL 2020-0 Yes [id number] 75mg Take 1 Univers 75 mg 7-07 tablet by ity of tablet 00:00: mouth [place] 00 daily. Medical Branch aspirin 81 2020-0 Yes [id number] 81mg Take 1 U nivers mg chewable 7-07 tablet by ity of tablet 00:00: mouth [place] 00 daily. Medical Branch clopidogreL 2020-0 Yes [id number] 75mg Take 1 Univers 75 mg 7-07 tablet by ity of tablet 00:00: mouth [place] 00 daily. Medical Branch aspirin 81 2020-0 Yes [id number] 81mg Take 1 U nivers mg chewable 7-07 tablet by ity of tablet 00:00: mouth [place] 00 daily. Medical Branch clopidogreL 2020-0 Yes [id number] 75mg Take 1 Univers 75 mg 7-07 tablet by ity of tablet 00:00: mouth [place] 00 daily. Medical Branch aspirin 81 2020-0 Yes [id number] 81mg Take 1 U nivers mg chewable 7-07 tablet by ity of tablet 00:00: mouth [place] 00 daily. Medical Branch clopidogreL 2020-0 Yes [id number] 75mg Take 1 Univers 75 mg 7-07 tablet by ity of tablet 00:00: mouth [place] 00 daily. Medical Branch aspirin 81 2020-0 Yes [id number] 81mg Take 1 U nivers mg chewable 7-07 tablet by ity of tablet 00:00: mouth [place] 00 daily. Medical Branch aspirin 81 2020-0 Yes [id number] 81mg Take 1 U nivers mg chewable 7-07 tablet by ity of tablet 00:00: mouth [place] 00 daily. Medical Branch clopidogreL 2020-0 Yes [id number] 75mg Take 1 Univers 75 mg 7-07 tablet by ity of tablet 00:00: mouth [place] 00 daily. Medical Branch clopidogreL 2020-0 Yes [id number] 75mg Take 1 Univers 75 mg 7-07 tablet by ity of tablet 00:00: mouth [place] 00 daily. Medical Branch aspirin 81 2020-0 Yes [id number] 81mg Take 1 U nivers mg chewable 7-07 tablet by ity of tablet 00:00: mouth [place] 00 daily. Medical Branch clopidogreL 2020-0 Yes [id number] 75mg Take 1 Univers 75 mg 7-07 [...] [place] mg 00 First dose Medical on [facility] 12/01/20 at 0900, Until Discontinu ed, Routine pantoprazol 0 Yes 40mg 40 mg, Univ ers e - Oral, ity of (PROTONIX) 14:00: DAILY, [place] EC tablet 00 First dose Medi blanquita 40 mg on [facility] 12/01/20 at 0900, Until Discontinu ed, Routine clopidogreL Yes [id number] 75mg 75 mg, Univers (PLAVIX) 12-01 Oral, ity of tablet 75 14:00: DAILY, [place] mg 00 First dose Medical on [facility] 12/01/20 at 0900, Until Discontinu ed, Routine
clergy member approving Restricted medication : [place] aspirin Yes [id number] 81mg 81 mg, [facility] [place] [facility] ers chewable 12-01 Oral, ity of tablet 81 14:00: DAILY, [place] mg 00 First dose Medical on [facility] 12/01/20 at 0900, Until Discontinu ed, Routine heparin Yes 5000U 5,000 Univers (porcine) 12-01 Units, ity of injection 13:00: Subcutaneo [place] 5,000 Units 00 us, Q12H, Med ical First dose Branch on [facility] 12/01/20 at 0800, Until Discontinu ed, Routine gabapentin Yes 800mg 800 mg, Uni vers (NEURONTIN) 12-01 Oral, TID, it y of tablet 800 13:00: First dose [place] mg 00 on [facility] 12/01/20 at Branch 0800, Until Discontinu ed, Routine magnesium 2020- No 4g 4 g, IV [facility] [place] [facility] ers sulfate in 12-01 Piggyback, it y of water 4 12:45: 14:07 ONCE, 1 [place] gram/50 mL 00 :00 dose, [facility] blanquita (8 %) IV 12/01/20 at [place] Piggyback 4 0745, g Routine insulin NPH Yes 40U 40 Units, U nivers and regular 12-01 Subcutaneo it y of human 70-30 12:30: us, BIDAC, [place] (HUMULIN 00 First dose Medic al 70-30 U-100 on [facility] INSULIN) 12/01/20 at 100 unit/mL 0730, (70-30) Until injection Discontinu 40 Units ed, Routine NaCl 0.9% 2020- No 1000mL at 20 [facility] [place] [facility] ers (NS) IV 12-01 mL/hr, IV ity [...] ity of (PF)) 20:53: 20:53 TITRATE - [place] injection 44 :44 FOR Medical PROCEDURE Branch USE, 1 dose, Starting 11/30/20 at 1553, Until 11/30/20 at 1553, Routine midazolam 2020- No IV Push, Uni vers (VERSED) 11-30 TITRATE - ity o f injection 20:53: 20:53 FOR [place] 37 :37 PROCEDURE Medical USE, 1 Branch dose, Starting 11/30/20 at 1553, Until Mon11/30/20 at 1553, Routine insulin 2020- No [id number] 10U 10 Units, Univers lispro 11-30 Subcutaneo ity of (human) 18:00: 18:15 us, ONCE, [place]ennie s (HumaLOG 00 :00 1 dose, Medical U-100) Mon11/30/20 Branch injection at 1300, 10 Units Routine ezetimibe Yes [id number] 10mg Take 1 U nivers 10 mg 6-18 tablet by ity of tablet 00:00: mouth [place] 00 daily. Medical Branch furosemide 2020- Yes [id number] 1 tablet Univers 20 mg 6-18 02 as needed ity of tablet 00:00: for leg [place] swelling Medical Branch ezetimibe 2020-0 Yes [id number] 10mg Take 1 U nivers 10 mg 6-18 tablet by ity of tablet 00:00: mouth [place] 00 daily. Medical Branch furosemide 2020-0 Yes [id number] 1 tablet Univers 20 mg 6-18 02 as needed ity of tablet 00:00: for leg [place] swelling Medical Branch ezetimibe 2020-0 Yes [id number] 10mg Take 1 U nivers 10 mg 6-18 tablet by ity of tablet 00:00: mouth [place] 00 daily. Medical Branch furosemide 2020-0 Yes [id number] 1 tablet Univers 20 mg 6-18 02 as needed ity of tablet 00:00: for leg [place] swelling Medical Branch ezetimibe 2020-0 Yes [id number] 10mg Take 1 U nivers 10 mg 6-18 tablet by ity of tablet 00:00: mouth [place] 00 daily. Medical Branch furosemide 2021-0 Yes [id number] 1 tablet Univers 20 mg 6-18 02 as needed ity of tablet 00:00: for leg swelling Medical Branch ezetimibe 1-0 Yes [id number] 10mg Take 1 U nivers 10 mg 6-18 tablet by ity of tablet 00:00: mouth [place] 00 daily. Medical Branch furosemide 1-0 Yes [id number] 1 tablet Univers 20 mg 6-18 02 as needed ity of tablet 00:00: for leg swelling Medical Branch ezetimibe 1-0 Yes [id number] 10mg Take 1 U nivers 10 mg 6-18 tablet by ity of tablet 00:00: mouth [place] 00 daily. Medical Branch furosemide 1-0 Yes [id number] 1 tablet Univers 20 mg 6-18 02 as needed ity of tablet 00:00: for leg swelling Medical Branch ezetimibe 1-0 Yes [id number] 10mg Take 1 U nivers 10 mg 6-18 tablet by ity of tablet 00:00: mouth [place] 00 daily. Medical Branch furosemide 1-0 Yes [id number] 1 tablet Univers 20 mg 6-18 02 as needed ity of tablet 00:00: for leg swelling Medical Branch ezetimibe 1-0 Yes [id number] 10mg Take 1 U nivers 10 mg 6-18 tablet by ity of tablet 00:00: mouth [place] 00 daily. Medical Branch furosemide 1-0 Yes [id number] 1 tablet Univers 20 mg 6-18 02 as needed ity of tablet 00:00: for leg swelling Medical Branch ezetimibe 2021-0 Yes [id number] 10mg Take 1 U nivers 10 mg 6-18 tablet by ity of tablet 00:00: mouth [place] 00 daily. Medical Branch furosemide 2021-0 Yes [id number] 1 tablet Univers 20 mg 6-18 02 as needed ity of tablet 00:00: for leg swelling Medical Branch ezetimibe 2021-0 Yes [id number] 10mg Take 1 U nivers 10 mg 6-18 tablet by ity of tablet 00:00: mouth [place] 00 daily. Medical Branch furosemide 1-0 Yes [id number] 1 tablet Univers 20 mg 6-18 02 as needed ity of tablet 00:00: for leg swelling Medical Branch ezetimibe 2021-0 Yes [id number] 10mg Take 1 U nivers 10 mg 6-18 tablet by ity of tablet 00:00: mouth [place] 00 daily. Medical Branch furosemide 2021-0 Yes [id number] 1 tablet Univers 20 mg 6-18 02 as needed ity of tablet 00:00: for leg swelling Medical Branch ezetimibe 2021-0 Yes [id number] 10mg Take 1 U nivers 10 mg 6-18 tablet by ity of tablet 00:00: mouth [place] 00 daily. Medical Branch furosemide 2021-0 Yes [id number] 1 tablet Univers 20 mg 6-18 02 as needed ity of tablet 00:00: for leg swelling Medical Branch ezetimibe 2021-0 Yes [id number] 10mg Take 1 U nivers 10 mg 6-18 tablet by ity of tablet 00:00: mouth [place] 00 daily. Medical Branch furosemide 2021-0 Yes [id number] 1 tablet Univers 20 mg 6-18 02 as needed ity of tablet 00:00: for leg swelling Medical Branch ezetimibe 2021-0 Yes [id number] 10mg Take 1 U nivers 10 mg 6-18 tablet by ity of tablet 00:00: mouth [place] 00 daily. Medical Branch furosemide 2021-0 Yes [id number] 1 tablet Univers 20 mg 6-18 02 as needed ity of tablet 00:00: for leg swelling Medical Branch ezetimibe 2021-0 Yes [id number] 10mg Take 1 U nivers 10 mg 6-18 tablet by ity of tablet 00:00: mouth [place] 00 daily. Medical Branch furosemide 2021-0 Yes [id number] 1 tablet [facility] 20 mg 6-18 02 as needed ity of tablet 00:00: for leg swelling Medical Branch ezetimibe 2021-0 Yes [id number] 10mg Take 1 U nivers 10 mg 6-18 tablet by ity of tablet 00:00: mouth [place] 00 daily. Medical Branch furosemide 2021-0 Yes [id number] 1 tablet [facility] 20 mg 6-18 02 as needed ity of tablet 00:00: for leg swelling Medical Branch ezetimibe 2021-0 Yes [id number] 10mg Take 1 U nivers 10 mg 6-18 tablet by ity of tablet 00:00: mouth [place] 00 daily. Medical Branch furosemide 2020-0 Yes [id number] 1 tablet Univers 20 mg 6-18 02 as needed ity of tablet 00:00: for leg swelling Medical Branch ezetimibe 2020-0 Yes [id number] 10mg Take 1 U nivers 10 mg 6-18 tablet by ity of tablet 00:00: mouth [place] 00 daily. Medical Branch furosemide 2020-0 Yes [id number] 1 tablet Univers 20 mg 6-18 02 as needed ity of tablet 00:00: for leg swelling Medical Branch ezetimibe 2020-0 Yes [id number] 10mg Take 1 U nivers 10 mg 6-18 tablet by ity of tablet 00:00: mouth [place] 00 daily. Medical Branch furosemide 2020-0 Yes [id number] 1 tablet [facility] 20 mg 6-18 02 as needed ity of tablet 00:00: for leg swelling Medical Branch ezetimibe 2020-0 Yes [id number] 10mg Take 1 U nivers 10 mg 6-18 tablet by ity of tablet 00:00: mouth [place] 00 daily. Medical Branch furosemide 2020-0 Yes [id number] 1 tablet Univers 20 mg 6-18 02 as needed ity of tablet 00:00: for leg swelling Medical Branch ezetimibe 2020-0 Yes [id number] 10mg Take 1 U nivers 10 mg 6-18 tablet by ity of tablet 00:00: mouth [place] 00 daily. Medical Branch furosemide 2020-0 Yes [id number] 1 tablet Univers 20 mg 6-18 02 as needed ity of tablet 00:00: for leg swelling Medical Branch insulin NPH 2020-0 Yes [id number] 40U inject Univers and regular 5-12 40-50 ity of human 70-30 00:00: Units [place] (NOVOLIN 00 under the Medica l 70/30 U-100 skin 2 Branch INSULIN) (two) 100 unit/mL times (70-30) daily injection before breakfast and dinner. FREESTYLE 2020-0 Yes [id number] 1{kit} 1 Kit Univers RASHARD 2 5-12 every 14 ity of SENSOR Kit 00:00: (fourteen) [place] 00 days. Medical Branch insulin NPH Yes [id number] 40U inject Univers and regular 5-12 40-50 ity of human 70-30 00:00: Units [place] (NOVOLIN 00 under the Medica l 70/30 U-100 skin 2 Branch INSULIN) (two) 100 unit/mL times (70-30) daily injection before breakfast and dinner. FREESTYLE Yes [id number] 1{kit} 1 Kit Univers RASHARD 2 5-12 every 14 ity of SENSOR Kit 00:00: (fourteen) [place] days. Medical Branch insulin NPH Yes [id number] 40U inject Univers and regular 5-12 40-50 ity of human 70-30 00:00: Units [place] (NOVOLIN 00 under the Medica l 70/30 U-100 skin 2 Branch INSULIN) (two) 100 unit/mL times (70-30) daily injection before breakfast and dinner. FREESTYLE Yes [id number] 1{kit} 1 Kit Univers RASHARD 2 5-12 every 14 ity of SENSOR Kit 00:00: (fourteen) [place] days. Medical Branch insulin NPH Yes [id number] 40U inject Univers and regular 5-12 40-50 ity of human 70-30 00:00: Units [place] (NOVOLIN 00 under the Medica l 70/30 U-100 skin 2 Branch INSULIN) (two) 100 unit/mL times (70-30) daily injection before breakfast and dinner. insulin NPH Yes [id number] 40U inject Univers and regular 5-12 40-50 ity of human 70-30 00:00: Units [place] (NOVOLIN 00 under the Medica l 70/30 U-100 skin 2 Branch INSULIN) (two) 100 unit/mL times (70-30) daily injection before breakfast and dinner. insulin NPH Yes [id number] 40U inject Univers and regular 5-12 40-50 ity of human 70-30 00:00: Units [place] (NOVOLIN 00 under the Medica l 70/30 U-100 skin 2 Branch INSULIN) (two) 100 unit/mL times (70-30) daily injection before breakfast and dinner. insulin NPH Yes [id number] 40U inject Univers and regular 5-12 40-50 ity of human 70-30 00:00: Units [place] (NOVOLIN 00 under the Medica l 70/30 U-100 skin 2 Branch INSULIN) (two) 100 unit/mL times (70-30) daily injection before breakfast and dinner. insulin NPH 0 Yes [id number] 40U inject Univers and regular 5-12 40-50 ity of human 70-30 00:00: Units [place] (NOVOLIN 00 under the Medica l 70/30 U-100 skin 2 Branch INSULIN) (two) 100 unit/mL times (70-30) daily injection before breakfast and dinner. insulin NPH 0 Yes [id number] 40U inject Univers and regular 5-12 40-50 ity of human 70-30 00:00: Units [place] (NOVOLIN 00 under the Medica l 70/30 U-100 skin 2 Branch INSULIN) (two) 100 unit/mL times (70-30) daily injection before breakfast and dinner. insulin NPH Yes [id number] 40U inject Univers and regular 5-12 40-50 ity of human 70-30 00:00: Units [place] (NOVOLIN 00 under the Medica l 70/30 U-100 skin 2 Branch INSULIN) (two) 100 unit/mL times (70-30) daily injection before breakfast and dinner. insulin NPH 0 Yes [id number] 40U inject Univers and regular 5-12 40-50 ity of human 70-30 00:00: Units [place] (NOVOLIN 00 under the Medica l 70/30 U-100 skin 2 Branch INSULIN) (two) 100 unit/mL times (70-30) daily injection before breakfast and dinner. insulin NPH 0 Yes [id number] 40U inject Univers and regular 5-12 40-50 ity of human 70-30 00:00: Units [place] (NOVOLIN 00 under the Medica l 70/30 U-100 skin 2 Branch INSULIN) (two) 100 unit/mL times (70-30) daily injection before breakfast and dinner. insulin NPH 0 Yes [id number] 40U inject Univers and regular 5-12 40-50 ity of human 70-30 00:00: Units [place] (NOVOLIN 00 under the Medica l 70/30 U-100 skin 2 Branch INSULIN) (two) 100 unit/mL times (70-30) daily injection before breakfast and dinner. insulin NPH 0 Yes [id number] 40U inject Univers and regular 5-12 40-50 ity of human 70-30 00:00: Units [place] (NOVOLIN 00 under the Medica l 70/30 U-100 skin 2 Branch INSULIN) (two) 100 unit/mL times (70-30) daily injection before breakfast and dinner. insulin NPH 0 Yes [id number] 40U inject Univers and regular 5-12 40-50 ity of human 70-30 00:00: Units [place] (NOVOLIN 00 under the Medica l 70/30 U-100 skin 2 Branch INSULIN) (two) 100 unit/mL times (70-30) daily injection before breakfast and dinner. insulin NPH 0 Yes [id number] 40U inject Univers and regular 5-12 40-50 ity of human 70-30 00:00: Units [place] (NOVOLIN 00 under the Medica l 70/30 U-100 skin 2 Branch INSULIN) (two) 100 unit/mL times (70-30) daily injection before breakfast and dinner. insulin NPH 0 Yes [id number] 40U inject Univers and regular 5-12 40-50 ity of human 70-30 00:00: Units [place] (NOVOLIN 00 under the Medica l 70/30 U-100 skin 2 Branch INSULIN) (two) 100 unit/mL times (70-30) daily injection before breakfast and dinner. insulin NPH 0 Yes [id number] 40U inject Univers and regular 5-12 40-50 ity of human 70-30 00:00: Units [place] (NOVOLIN 00 under the Medica l 70/30 U-100 skin 2 Branch INSULIN) (two) 100 unit/mL times (70-30) daily injection before breakfast and dinner. insulin NPH 0 Yes [id number] 40U inject Univers and regular 5-12 40-50 ity of human 70-30 00:00: Units [place] (NOVOLIN 00 under the Medica l 70/30 U-100 skin 2 Branch INSULIN) (two) 100 unit/mL times (70-30) daily injection before breakfast and dinner. insulin NPH 0 Yes [id number] 40U inject Univers and regular 5-12 40-50 ity of human 70-30 00:00: Units [place] (NOVOLIN 00 under the Medica l 70/30 U-100 skin 2 Branch INSULIN) (two) 100 unit/mL times (70-30) daily injection before breakfast and dinner. insulin NPH Yes [id number] 40U inject Univers and regular 5-12 40-50 ity of human 70-30 00:00: Units [place] (NOVOLIN 00 under the Medica l 70/30 U-100 skin 2 Branch INSULIN) (two) 100 unit/mL times (70-30) daily injection before breakfast and dinner. insulin NPH Yes [id number] 40U inject Univers and regular 5-12 40-50 ity of human 70-30 00:00: Units [place] (NOVOLIN 00 under the Medica l 70/30 U-100 skin 2 Branch INSULIN) (two) 100 unit/mL times (70-30) daily injection before breakfast and dinner. insulin NPH Yes [id number] 40U inject Univers and regular 5-12 40-50 ity of human 70-30 00:00: Units [place] (NOVOLIN 00 under the Medica l 70/30 U-100 skin 2 Branch INSULIN) (two) 100 unit/mL times (70-30) daily injection before breakfast and dinner. insulin NPH Yes [id number] 40U inject Univers and regular 5-12 40-50 ity of human 70-30 00:00: Units [place] (NOVOLIN 00 under the Medica l 70/30 U-100 skin 2 Branch INSULIN) (two) 100 unit/mL times (70-30) daily injection before breakfast and dinner. insulin NPH Yes [id number] 40U inject Univers and regular 5-12 40-50 ity of human 70-30 00:00: Units [place] (NOVOLIN 00 under the Medica l 70/30 U-100 skin 2 Branch INSULIN) (two) 100 unit/mL times (70-30) daily injection before breakfast and dinner. FREESTYLE 2020- No [id number] 1{kit} 1 Kit Univers RASHARD 2 10-0718 every 14 ity of SENSOR Kit 00:00: 00:00 (fourteen) [place] 00 :00 days. Medical Branch FREESTYLE 2020- No [id number] 1{kit} 1 Kit Univers RASHARD 2 12 06-18 every 14 ity of SENSOR Kit 00:00: 00:00 (fourteen) [place] 00 :00 days. Medical Branch mirtazapine Yes [id number] 15mg Take 1 Univers 15 mg 5-06 tablet by ity of tablet 00:00: mouth at [place] [address] bedtime. Medical Branch atorvastati Yes [id number] 80mg Take 1 Univers n 80 mg 5-06 tablet by ity of tablet 00:00: mouth at [place] [address] bedtime. Medical Branch glipiZIDE Yes [id number] 5mg Take 0.5 Univers 10 mg 5-06 tablets by ity of tablet 00:00: mouth 2 [place] (two) Medical times Branch daily before breakfast and dinner. mirtazapine Yes [id number] 15mg Take 1 Univers 15 mg 5-06 tablet by ity of tablet 00:00: mouth at [place] [address] bedtime. Medical Branch atorvastati Yes [id number] 80mg Take 1 Univers n 80 mg 5-06 tablet by ity of tablet 00:00: mouth at [place] [address] bedtime. Medical Branch glipiZIDE Yes [id number] 5mg Take 0.5 Univers 10 mg 5-06 tablets by ity of tablet 00:00: mouth 2 [place] (two) Medical times Branch daily before breakfast and dinner. mirtazapine Yes [id number] 15mg Take 1 Univers 15 mg 5-06 tablet by ity of tablet 00:00: mouth at [place] [address] bedtime. Medical Branch atorvastati Yes [id number] 80mg Take 1 Univers n 80 mg 5-06 tablet by ity of tablet 00:00: mouth at [place] [address] bedtime. Medical Branch mirtazapine Yes [id number] 15mg Take 1 Univers 15 mg 5-06 tablet by ity of tablet 00:00: mouth at [place] [address] bedtime. Medical Branch atorvastati Yes [id number] 80mg Take 1 Univers n 80 mg 5-06 tablet by ity of tablet 00:00: mouth at [place] [address] bedtime. Medical Branch mirtazapine Yes [id number] 15mg Take 1 Univers 15 mg 5-06 tablet by ity of tablet 00:00: mouth at [place] 00 bedtime. Medical Branch atorvastati 0 Yes [id number] 80mg Take 1 Univers n 80 mg 5-06 tablet by ity of tablet 00:00: mouth at [place] 00 bedtime. Medical Branch mirtazapine 0 Yes [id number] 15mg Take 1 Univers 15 mg 5-06 tablet by ity of tablet 00:00: mouth at [place] 00 bedtime. Medical Branch atorvastati 0 Yes [id number] 80mg Take 1 Univers n 80 mg 5-06 tablet by ity of tablet 00:00: mouth at [place] [address] bedtime. Medical Branch mirtazapine Yes [id number] 15mg Take 1 Univers 15 mg 5-06 tablet by ity of tablet 00:00: mouth at [place] [address] bedtime. Medical Branch atorvastati 0 Yes [id number] 80mg Take 1 Univers n 80 mg 5-06 tablet by ity of tablet 00:00: mouth at [place] [address] bedtime. Medical Branch mirtazapine Yes [id number] 15mg Take 1 Univers 15 mg 5-06 tablet by ity of tablet 00:00: mouth at [place] [address] bedtime. Medical Branch atorvastati 0 Yes [id number] 80mg Take 1 Univers n 80 mg 5-06 tablet by ity of tablet 00:00: mouth at [place] [address] bedtime. Medical Branch mirtazapine 0 Yes [id number] 15mg Take 1 Univers 15 mg 5-06 tablet by ity of tablet 00:00: mouth at [place] [address] bedtime. Medical Branch atorvastati 0 Yes [id number] 80mg Take 1 Univers n 80 mg 5-06 tablet by ity of tablet 00:00: mouth at [place] [address] bedtime. Medical Branch mirtazapine 0 Yes [id number] 15mg Take 1 Univers 15 mg 5-06 tablet by ity of tablet 00:00: mouth at [place] [address] bedtime. Medical Branch atorvastati 0 Yes [id number] 80mg Take 1 Univers n 80 mg 5-06 tablet by ity of tablet 00:00: mouth at [place] 00 bedtime. Medical Branch mirtazapine 2020-0 Yes [id number] 15mg Take 1 Univers 15 mg 5-06 tablet by ity of tablet 00:00: mouth at [place] 00 bedtime. Medical Branch atorvastati 2020-0 Yes [id number] 80mg Take 1 Univers n 80 mg 5-06 tablet by ity of tablet 00:00: mouth at [place] 00 bedtime. Medical Branch mirtazapine 2020-0 Yes [id number] 15mg Take 1 Univers 15 mg 5-06 tablet by ity of tablet 00:00: mouth at [place] 00 bedtime. Medical Branch atorvastati 2020-0 Yes [id number] 80mg Take 1 Univers n 80 mg 5-06 tablet by ity of tablet 00:00: mouth at [place] 00 bedtime. Medical Branch mirtazapine 2020-0 Yes [id number] 15mg Take 1 Univers 15 mg 5-06 tablet by ity of tablet 00:00: mouth at [place] [address] bedtime. Medical Branch atorvastati 0 Yes [id number] 80mg Take 1 Univers n 80 mg 5-06 tablet by ity of tablet 00:00: mouth at [place] [address] bedtime. Medical Branch mirtazapine 0 Yes [id number] 15mg Take 1 Univers 15 mg 5-06 tablet by ity of tablet 00:00: mouth at [place] [address] bedtime. Medical Branch atorvastati 0 Yes [id number] 80mg Take 1 Univers n 80 mg 5-06 tablet by ity of tablet 00:00: mouth at [place] [address] bedtime. Medical Branch mirtazapine 2020-0 Yes [id number] 15mg Take 1 Univers 15 mg 5-06 tablet by ity of tablet 00:00: mouth at [place] [address] bedtime. Medical Branch atorvastati 0 Yes [id number] 80mg Take 1 Univers n 80 mg 5-06 tablet by ity of tablet 00:00: mouth at [place] [address] bedtime. Medical Branch mirtazapine 2020-0 Yes [id number] 15mg Take 1 Univers 15 mg 5-06 tablet by ity of tablet 00:00: mouth at [place] [address] bedtime. Medical Branch atorvastati 2020-0 Yes [id number] 80mg Take 1 Univers n 80 mg 5-06 tablet by ity of tablet 00:00: mouth at [place] 00 bedtime. Medical Branch mirtazapine 2020-0 Yes [id number] 15mg Take 1 Univers 15 mg 5-06 tablet by ity of tablet 00:00: mouth at [place] [address] bedtime. Medical Branch atorvastati 2020-0 Yes [id number] 80mg Take 1 Univers n 80 mg 5-06 tablet by ity of tablet 00:00: mouth at [place] [address] bedtime. Medical Branch mirtazapine 2020-0 Yes [id number] 15mg Take 1 Univers 15 mg 5-06 tablet by ity of tablet 00:00: mouth at [place] 00 bedtime. Medical Branch atorvastati 0 Yes [id number] 80mg Take 1 Univers n 80 mg 5-06 tablet by ity of tablet 00:00: mouth at [place] [address] bedtime. Medical Branch mirtazapine 0 Yes [id number] 15mg Take 1 Univers 15 mg 5-06 tablet by ity of tablet 00:00: mouth at [place] [address] bedtime. Medical Branch atorvastati 0 Yes [id number] 80mg Take 1 Univers n 80 mg 5-06 tablet by ity of tablet 00:00: mouth at [place] [address] bedtime. Medical Branch mirtazapine 0 Yes [id number] 15mg Take 1 Univers 15 mg 5-06 tablet by ity of tablet 00:00: mouth at [place] [address] bedtime. Medical Branch atorvastati 0 Yes [id number] 80mg Take 1 Univers n 80 mg 5-06 tablet by ity of tablet 00:00: mouth at [place] [address] bedtime. Medical Branch mirtazapine 2020-0 Yes [id number] 15mg Take 1 [facility] 15 mg 5-06 tablet by ity of tablet 00:00: mouth at [place] [address] bedtime. Medical Branch atorvastati 0 Yes [id number] 80mg Take 1 Univers n 80 mg 5-06 tablet by ity of tablet 00:00: mouth at [place] [address] bedtime. Medical Branch mirtazapine 0 Yes [id number] 15mg Take 1 [facility] 15 mg 5-06 tablet by ity of tablet 00:00: mouth at [place] [address] bedtime. Medical Branch mirtazapine 0 Yes [id number] 15mg Take 1 [facility] 15 mg 5-06 tablet by ity of tablet 00:00: mouth at [place] [address] bedtime. Medical Branch atorvastati Yes [id number] 80mg Take 1 Univers n 80 mg 5-06 tablet by ity of tablet 00:00: mouth at [place] [address] bedtime. Medical Branch atorvastati Yes [id number] 80mg Take 1 [facility] n 80 mg 5-06 tablet by ity of tablet 00:00: mouth at [place] 00 bedtime. Medical Branch mirtazapine Yes [id number] 15mg Take 1 [facility] 15 mg 5-06 tablet by ity of tablet 00:00: mouth at [place] 00 bedtime. Medical Branch atorvastati Yes [id number] 80mg Take 1 Univers n 80 mg 5-06 tablet by ity of tablet 00:00: mouth at [place] [address] bedtime. Medical Branch mirtazapine Yes [id number] 15mg Take 1 [facility] 15 mg 5-06 tablet by ity of tablet 00:00: mouth at [place] [address] bedtime. Medical Branch atorvastati Yes [id number] 80mg Take 1 Univers n 80 mg 5-06 tablet by ity of tablet 00:00: mouth at [place] [address] bedtime. Medical Branch atorvastati Yes [id number] 80mg Take 1 Univers n 80 mg 5-06 tablet by ity of tablet 00:00: mouth at [place] [address] bedtime. Medical Branch mirtazapine Yes [id number] 15mg Take 1 [facility] 15 mg 5-06 tablet by ity of tablet 00:00: mouth at [place] [address] bedtime. Medical Branch atorvastati Yes [id number] 80mg Take 1 [facility] n 80 mg 5-06 tablet by ity of tablet 00:00: mouth at [place] [address] bedtime. [facility] glipiZIDE Yes Type 2 [...] [place] 00 involving bed[place]. [facility] [place] [facility] coronary artery of [place] heart without angina pectoris glipiZIDE Yes Type [...] [place] 00 involving bedtime. [facility] l [place] [facility] coronary artery of [place] without angina pectoris mirtazapine 2020- No [id number] 15mg Take 1 [facility] 15 mg 5-06 12-20 tablet by ity of tablet 00:00: 00:00 mouth at [place] 00 :00 bedtime. Medical Branch glipiZIDE 2020- No [id number] 5mg Take 0.5 [facility] 10 mg 5-06 05-12 tablets by ity of tablet 00:00: 00:00 mouth 2 [place] 00 :00 (two) Medical times Branch daily before breakfast and dinner. glipiZIDE 2020- No [id number] 5mg Take 0.5 [facility] 10 mg 5-06 05-12 tablets by ity of tablet 00:00: 00:00 mouth 2 [place] 00 :00 (two) Medical times Branch daily before breakfast and dinner. fluconazole 2020- No [id number] 150mg Take 1 [facility] 150 mg 4-14 04-17 tablet by ity of tablet 00:00: 04:59 mouth [place] 00 :00 every 72 Medical (seventy-t Branch wo) hours for 2 days. fluconazole 2020- No [id number] 150mg Take 1 [facility] 150 mg 4-14 -17 tablet by ity of tablet 00:00: 04:59 mouth [place] 00 :00 every 72 Medical (seventy-t Branch wo) hours for 2 days. fluconazole 2020- No [id number] 150mg Take 1 [facility] 150 mg 4-14 [...] Until Discontinu ed, Routine ezetimibe 2020- No [id number] 10mg Take 1 [facility] 10 mg -08 10-14 tablet by ity of tablet 00:00: 04:59 mouth [place] 00 :00 daily for Medical 30 days. Branch insulin NPH 2020- No [id number] 60U inject 60 Univers and regular 4-13 05-14 Units ity of human 70-30 00:00: 04:59 under the [place] (NOVOLIN 00 :00 skin 2 Medical 70/30 U-100 (two) Branch INSULIN) times 100 unit/mL daily (70-30) before injection breakfast and dinner for 30 days. ezetimibe 2020- No [id number] 10mg Take 1 [facility] 10 mg -13 -14 tablet by ity of tablet 00:00: 04:59 mouth [place] 00 :00 daily for Medical 30 days. Branch insulin NPH 2020- No [id number] 60U inject 60 Univers and regular 4-13 05-14 Units ity of human 70-30 00:00: 04:59 under the [place] (NOVOLIN 00 :00 skin 2 Medical 70/30 U-100 (two) Branch INSULIN) times 100 unit/mL daily (70-30) before injection breakfast and dinner for 30 days. ezetimibe 2020- No [id number] 10mg Take 1 [facility] 10 mg 4-13 05-14 tablet by ity of tablet 00:00: 04:59 mouth [place] 00 :00 daily for Medical 30 days. Branch insulin NPH 2020- No [id number] 60U inject 60 Univers and regular 4-13 05-14 Units ity of human 70-30 00:00: 04:59 under the [place] (NOVOLIN 00 :00 skin 2 Medical 70/30 U-100 (two) Branch INSULIN) times 100 unit/mL daily (70-30) before injection breakfast and dinner for 30 days. ezetimibe 2020- No [id number] 10mg Take 1 [facility] 10 mg 4-13 05-14 tablet by ity of tablet 00:00: 04:59 mouth [place] 00 :00 daily for Medical 30 days. Branch insulin NPH 2020- No [id number] 60U inject 60 Univers and regular 4-13 05-14 Units ity of human 70-30 00:00: 04:59 under the [place] (NOVOLIN 00 :00 skin 2 Medical 70/30 U-100 (two) Branch INSULIN) times 100 unit/mL daily (70-30) before injection breakfast and dinner for 30 days. ezetimibe 2020- No [id number] 10mg Take 1 [facility] 10 mg 4-13 05-14 tablet by ity of tablet 00:00: 04:59 mouth [place] 00 :00 daily for Medical 30 days. Branch insulin NPH 2020- No [id number] 60U inject 60 [facility] and regular 4-13 05-14 Units ity of human 70-30 00:00: 04:59 under the [place] (NOVOLIN 00 :00 skin 2 Medical 70/30 U-100 (two) Branch INSULIN) times 100 unit/mL daily (70-30) before injection breakfast and dinner for 30 days. ezetimibe 2020- No [id number] 10mg Take 1 [facility] 10 mg 4-13 05-14 tablet by ity of tablet 00:00: 04:59 mouth [place] 00 :00 daily for Medical 30 days. Branch insulin NPH 2020- No [id number] 60U inject 60 [facility] and regular 4-13 05-14 Units ity of human 70-30 00:00: 04:59 under the [place] (NOVOLIN 00 :00 skin 2 Medical 70/30 U-100 (two) Branch INSULIN) times 100 unit/mL daily (70-30) before injection breakfast and dinner for 30 days. ezetimibe 2020-2020- No [id number] 10mg Take 1 [facility] 10 mg 4-13 05-14 tablet by ity of tablet 00:00: 04:59 mouth [place] 00 :00 daily for Medical 30 days. Branch insulin NPH 2020- No [id number] 60U inject 60 [facility] and regular 4-13 05-14 Units ity of human 70-30 00:00: 04:59 under the [place] (NOVOLIN 00 :00 skin 2 Medical 70/30 U-100 (two) Branch INSULIN) times 100 unit/mL daily (70-30) before injection breakfast and dinner for 30 days. ezetimibe 2020- No [id number] 10mg Take 1 [facility] 10 mg 4-13 05-14 tablet by ity of tablet 00:00: 04:59 mouth [place] 00 :00 daily for Medical 30 days. Branch ezetimibe 2020- No [id number] 10mg Take 1 [facility] 10 mg 4-13 [...] for 30 days. insulin NPH 2020- No [id number] 60U inject 60 [facility] and regular 4-13 05-12 Units ity of human 70-30 00:00: 00:00 under the [place] (NOVOLIN 00 :00 skin 2 Medical 70/30 U-100 (two) Branch INSULIN) times 100 unit/mL daily (70-30) before injection breakfast and dinner for 30 days. insulin NPH 2020- No [id number] 60U inject 60 [facility] and regular 4-13 [...] of tablet 23:21: mouth [place] 25 daily. [facility] aspirin 81 2020-0 Yes 81mg Take [...] Medical Branch insulin NPH 2020-0 2020- No [id number] 90U inject 90 [facility] and regular 4-12 05-13 Units ity of human 70-30 00:00: 04:59 under the [place] (NOVOLIN 00 :00 skin 2 Medical 70/30 U-100 (two) Branch INSULIN) times 100 unit/mL daily (70-30) before injection breakfast and dinner for 30 days. metoprolol 2020- No [id number] 50mg Take 0.5 [facility] succinate 4-12 05-13 tablets by ity of XL 100 mg 00:00: 04:59 mouth [place] 24 hr 00 :00 daily for Medical tablet 30 days. Branch glipiZIDE No [id number] 10mg Take 1 [facility] 10 mg 4-12 05-13 tablet by ity of tablet 00:00: 04:59 mouth 2 [place] 00 :00 (two) Medical times Branch daily before breakfast and dinner for 30 days. SITagliptin No [id number] 100mg Take 1 [facility] 100 mg 4-12 05-13 tablet by ity of tablet 00:00: 04:59 [place] 00 :00 evening Medical meal for Branch 30 days. insulin NPH 2020- No [id number] 90U inject 90 [facility] and regular 4-12 05-13 Units ity of human 70-30 00:00: 04:59 under the [place] (NOVOLIN 00 :00 skin 2 Medical 70/30 U-100 (two) Branch INSULIN) times 100 unit/mL daily (70-30) before injection breakfast and dinner for 30 days. metoprolol No [id number] 50mg Take 0.5 [facility] succinate 4-12 05-13 tablets by ity of XL 100 mg 00:00: 04:59 mouth [place] 24 hr 00 :00 daily for Medical tablet 30 days. Branch glipiZIDE No [id number] 10mg Take 1 [facility] 10 mg 4-12 05-13 tablet by ity of tablet 00:00: 04:59 mouth 2 [place] 00 :00 (two) Medical times [place] daily before breakfast and dinner for 30 days. SITagliptin No [id number] 100mg Take 1 [facility] 100 mg 4-12 05-13 tablet by ity of tablet 00:00: 04:59 mouth [place] 00 :00 evening Medical meal for Branch 30 days. insulin NPH No [id number] 90U inject 90 [facility] and regular 4-12 05-13 Units ity of human 70-30 00:00: 04:59 under the [place] (NOVOLIN 00 :00 skin 2 Medical 70/30 U-100 (two) Branch INSULIN) times 100 unit/mL daily (70-30) before injection breakfast and dinner for 30 days. metoprolol 2020- No [id number] 50mg Take 0.5 [facility] succinate 4-12 05-13 tablets by ity of XL 100 mg 00:00: 04:59 mouth [place] 24 hr 00 :00 daily for Medical tablet 30 days. Branch glipiZIDE 2020- No [id number] 10mg Take 1 [facility] 10 mg 4-12 05-13 tablet by ity of tablet 00:00: 04:59 mouth 2 [place] 00 :00 (two) Medical times Branch daily before breakfast and dinner for 30 days. SITagliptin 2020- No [id number] 100mg Take 1 [facility] 100 mg 4-12 05-13 tablet by ity of tablet 00:00: 04:59 mouth [place] 00 :00 evening Medical meal for Branch 30 days. insulin NPH 2020- No [id number] 90U inject 90 [facility] and regular 4-12 05-13 Units ity of human 70-30 00:00: 04:59 under the [place] (NOVOLIN 00 :00 skin 2 Medical 70/30 U-100 (two) Branch INSULIN) times 100 unit/mL daily (70-30) before injection breakfast and dinner for 30 days. metoprolol 2020- No [id number] 50mg Take 0.5 [facility] succinate 4-12 05-13 tablets by ity of XL 100 mg 00:00: 04:59 mouth [place] 24 hr 00 :00 daily for Medical tablet 30 days. Branch glipiZIDE 2020- No [id number] 10mg Take 1 [facility] 10 mg 4-12 05-13 tablet by ity of tablet 00:00: 04:59 mouth 2 [place] 00 :00 (two) Medical times Branch daily before breakfast and dinner for 30 days. SITagliptin 2020- No [id number] 100mg Take 1 [facility] 100 mg 4-12 05-13 tablet by ity of tablet 00:00: 04:59 mouth [place] 00 :00 evening Medical meal for Branch 30 days. insulin NPH 2020- No [id number] 90U inject 90 [facility] and regular 4-12 05-13 Units ity of human 70-30 00:00: 04:59 under the [place] (NOVOLIN 00 :00 skin 2 Medical 70/30 U-100 (two) Branch INSULIN) times 100 unit/mL daily (70-30) before injection breakfast and dinner for 30 days. metoprolol 2020- No [id number] 50mg Take 0.5 [facility] succinate 4- 05-13 tablets by ity of XL 100 mg 00:00: 04:59 mouth [place] 24 hr 00 :00 daily for Medical tablet 30 days. [place] glipiZIDE 2020- No [id number] 10mg Take 1 [facility] 10 mg - 05-13 tablet by ity of tablet 00:00: 04:59 mouth 2 [place] 00 :00 (two) Medical times [place] daily before breakfast and dinner for 30 days. SITagliptin 2020- No [id number] 100mg Take 1 [facility] 100 mg 4- 05-13 tablet by ity of tablet 00:00: 04:59 mouth [place] 00 :00 evening Medical meal for [place] 30 days. metoprolol No [id number] 50mg Take 0.5 [facility] succinate 4- 05-13 tablets by ity of XL 100 mg 00:00: 04:59 mouth [place] 24 hr 00 :00 daily for Medical tablet 30 days. [place] SITagliptin 2020- No [id number] 100mg Take 1 [facility] 100 mg 4- 05-13 tablet by ity of tablet 00:00: 04:59 mouth [place] 00 :00 evening Medical meal for Branch 30 days. metoprolol 2020- No [id number] 50mg Take 0.5 [facility] succinate 4-12 05-13 tablets by ity of XL 100 mg 00:00: 04:59 mouth [place] 24 hr 00 :00 daily for Medical tablet 30 days. [place] SITagliptin 2020- No [id number] 100mg Take 1 [facility] 100 mg 4-12 05-13 tablet by ity of tablet 00:00: 04:59 mouth [place] 00 :00 evening Medical meal for Branch 30 days. metoprolol 2020- No [id number] 50mg Take 0.5 [facility] succinate 4- 05-13 tablets by ity of XL 100 mg 00:00: 04:59 mouth [place] 24 hr 00 :00 daily for Medical tablet 30 days. Branch metoprolol 2020- No [id number] 50mg Take 0.5 [facility] succinate 4- 05-13 [...] :00 involving daily for Medi blanquita tablet [place] 30 days. 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 [place] SITagliptin 2020- No [id number] 100mg Take 1 [facility] 100 mg 4-12 05-12 tablet by ity of tablet 00:00: 00:00 mouth [place] 00 :00 evening Medical meal for Branch 30 days. SITagliptin 2020- No [id number] 100mg Take 1 [facility] 100 mg 4-12 05-12 tablet by ity of tablet 00:00: 00:00 mouth [place] 00 :00 evening Medical meal for Branch 30 days. insulin NPH 2020- No [id number] 90U inject 90 Univers and regular 4-12 05-06 Units ity of human 70-30 00:00: 00:00 under the [place] (NOVOLIN 00 :00 skin 2 Medical 70/30 U-100 (two) Branch INSULIN) times 100 unit/mL daily (70-30) before injection breakfast and dinner for 30 days. glipiZIDE 2020- No [id number] 10mg Take 1 [facility] 10 mg 4-12 05-06 tablet by ity of tablet 00:00: 00:00 mouth 2 [place] 00 :00 (two) Medical times Branch daily before breakfast and dinner for 30 days. insulin NPH 2020- No [id number] 90U inject 90 [facility] and regular 4-12 05-06 Units ity of human 70-30 00:00: 00:00 under the [place] (NOVOLIN 00 :00 skin 2 Medical 70/30 U-100 (two) Branch INSULIN) times 100 unit/mL daily (70-30) before injection breakfast and dinner for 30 days. glipiZIDE 2020- No [id number] 10mg Take 1 [facility] 10 mg 4- [...] dinner for 30 days. lactobacill 2020- No [id number] 1{tbl} Take 1 [facility] us 09-07-23 tablet by ity of acidophilus 00:00: 04:59 mouth 2 [place] 25 million 00 :00 (two) Medical cell -100 times Branch mg captab daily for 10 days. lactobacill 2020- No [id number] 1{tbl} Take 1 [facility] us 09-0723 tablet by ity of acidophilus 00:00: 04:59 mouth 2 [place] 25 million 00 :00 (two) Medical cell -100 times Branch mg captab daily for 10 days. lactobacill 2020- No [id number] 1{tbl} Take 1 [facility] us 09-0723 tablet by ity of acidophilus 00:00: 04:59 mouth 2 [place] 25 million 00 :00 (two) Medical cell -100 times Branch mg captab daily for 10 days. metroNIDAZO 2020- No [id number] 500mg Take 1 [facility] LE 500 mg 09-07 tablet by ity of tablet 00:00: 04:59 mouth 2 [place] 00 :00 (two) Medical times Branch daily for 6 days. ciprofloxac 2020- No [id number] 750mg Take 1 [facility] in HCl 750 09-07 tablet by ity of mg tablet 00:00: 04:59 mouth [place] 00 :00 every 12 Medical (twelve) Branch hours for 6 days. metroNIDAZO 2020- No [id number] 500mg Take 1 [facility] LE 500 mg 09-07 tablet by ity of tablet 00:00: 04:59 mouth 2 [place] 00 :00 (two) Medical times Branch daily for 6 days. ciprofloxac 2020- No [id number] 750mg Take 1 [facility] in HCl 750 09-07 tablet by ity of mg tablet 00:00: 04:59 mouth [place] 00 :00 every 12 Medical (twelve) Branch hours for 6 days. metroNIDAZO 2020- No [id number] 500mg Take 1 [facility] LE 500 mg 09-07 tablet by ity of tablet 00:00: 04:59 mouth 2 [place] 00 :00 (two) Medical times [place] daily for 6 days. ciprofloxac 2020- No [id number] 750mg Take 1 [facility] in HCl 750 09-07 tablet by ity of mg tablet 00:00: 04:59 mouth [place] 00 :00 every 12 Medical (twelve) Branch hours for 6 days. cosyntropin 2020- No 250ug 250 mcg, Univers (CORTROSYN) 09-06 Slow IV ity of injection 22:45: 22:06 Push, [place] 250 mcg 00 :00 ONCE, 1 Medical dose, [facility] 09/06/20 at 1745, Routine metoprolol Yes 50mg 50 mg, Unive rs succinate 09-06 Oral, ity of XL (TOPROL 14:00: DAILY, [place] XL) tablet 00 First dose Med ical 50 mg (after Branch last modificati on) on [place] 09/06/20 at 0900, Until Discontinu ed, Routine ezetimibe Yes 10mg 10 mg, Univer s (ZETIA) 09-06 Oral, ity of tablet 10 14:00: DAILY, [place] mg 00 First dose Medical on [facility] 09/06/20 at 0900, Until Discontinu ed, Routine fluconazole Yes 150mg 150 mg, Un [place] (DIFLUCAN) 09-06 Oral, ity of tablet 150 14:00: Q72H, [place] mg 00 First dose Medical on [facility] 09/06/20 at 0900, Until Discontinu ed, [...] [place] gram/50 mL 00 :00 dose, Sat [facility] blanquita (8 %) IV 09/05/20 at [facility] h Piggyback 4 2014, g Routine KCL [...] mg 00 :49 First dose Medical on [facility] 09/05/20 at 0900, Until Discontinu ed, [...] [place] mg 00 First dose Medical on [facility] 09/05/20 at 0730, Until Discontinu ed, [...] Routine, Pain (scale 4-6) Sliding Yes Subcutaneo [facility] [place] [facility] ers Scale 4-10 us, TID ity of [...] injection 4 42 Starting Medi blanquita mg [facility] 09/05/20 at 0429, Until Discontinu ed, Routine, Nausea and Vomiting (N/V) glucagon Yes 1mg 1 mg, Univers (GLUCAGEN 4-10 Intramuscu ity of DIAGNOSTIC 09:28: [place], PRN, [place] KIT) 38 Starting Medical injection 1 [facility] 09/05/20 at 0428, Until Discontinu ed, [...] 18 Units at 2330, Routine atorvastati Yes [id number] 80mg Take 1 Univers n 80 mg 3-10 tablet by ity of tablet 00:00: mouth at [place] [address] bedtime. Medical Branch atorvastati Yes [id number] 80mg Take 1 [facility] n 80 mg 3-10 tablet by ity of tablet 00:00: mouth at [place] [address] bedtime. Medical Branch atorvastati Yes [id number] 80mg Take 1 [facility] n 80 mg 3-10 tablet by ity of tablet 00:00: mouth at [place] [address] bedtime. Medical Branch atorvastati Yes [id number] 80mg Take 1 [facility] n 80 mg 3-10 tablet by ity of tablet 00:00: mouth at [place] [address] bedtime. Medical Branch atorvastati Yes [id number] 80mg Take 1 [facility] n 80 mg 3-10 tablet by ity of tablet 00:00: mouth at [place] [address] bedtime. Medical Branch atorvastati 2020- No [id number] 80mg Take 1 [facility] n 80 mg [...] DAILY WITH Branch MEALS isosorbide 2021-0 Yes [id number] 30mg Take 1 Univers mononitrate 1-11 tablet by ity of 30 mg 24 hr 00:00: mouth [place] tablet 00 daily. Medical Branch metoprolol 1-0 Yes [id number] 100mg Take 1 [facility] succinate 1-11 tablet by ity o f XL 100 mg 00:00: mouth [place] 24 hr 00 daily. Medical tablet Branch pantoprazol Yes [id number] 40mg Take 1 [facility] e 40 mg EC 1-11 tablet by ity of tablet 00:00: mouth [place] 00 daily. Medical Branch isosorbide 0 Yes [id number] 30mg Take 1 [facility] mononitrate 1-11 tablet by ity of 30 mg 24 hr 00:00: mouth [place] tablet 00 daily. Medical Branch metoprolol Yes [id number] 100mg Take 1 [facility] succinate 1-11 tablet by ity o f XL 100 mg 00:00: mouth [place] 24 hr 00 daily. Medical tablet Branch pantoprazol Yes [id number] 40mg Take 1 [facility] e 40 mg EC 1-11 tablet by ity of tablet 00:00: mouth [place] 00 daily. Medical Branch isosorbide Yes [id number] 30mg Take 1 [facility] mononitrate 1-11 tablet by ity of 30 mg 24 hr 00:00: mouth [place] tablet 00 daily. Medical Branch metoprolol Yes [id number] 100mg Take 1 [facility] succinate 1-11 tablet by ity o f XL 100 mg 00:00: mouth [place] 24 hr 00 daily. Medical tablet Branch pantoprazol Yes [id number] 40mg Take 1 [facility] e 40 mg EC 1-11 tablet by ity of tablet 00:00: mouth [place] 00 daily. Medical Branch isosorbide Yes [id number] 30mg Take 1 [facility] mononitrate 1-11 tablet by ity of 30 mg 24 hr 00:00: mouth [place] tablet 00 daily. Medical Branch metoprolol Yes [id number] 100mg Take 1 [facility] succinate 1-11 tablet by ity o f XL 100 mg 00:00: mouth [place] 24 hr 00 daily. Medical tablet Branch pantoprazol Yes [id number] 40mg Take 1 Univers e 40 mg EC 1-11 tablet by ity of tablet 00:00: mouth [place] 00 daily. Medical Branch isosorbide Yes [id number] 30mg Take 1 [facility] mononitrate 1-11 tablet by ity of 30 mg 24 hr 00:00: mouth [place] tablet 00 daily. Medical Branch metoprolol Yes [id number] 100mg Take 1 [facility] succinate 1-11 tablet by ity o f XL 100 mg 00:00: mouth [place] 24 hr 00 daily. Medical tablet Branch pantoprazol Yes [id number] 40mg Take 1 [facility] e 40 mg EC 1-11 tablet by ity of tablet 00:00: mouth [place] 00 daily. Medical Branch isosorbide Yes [id number] 30mg Take 1 [facility] mononitrate 1-11 tablet by ity of 30 mg 24 hr 00:00: mouth [place] tablet 00 daily. Medical Branch metoprolol Yes [id number] 100mg Take 1 [facility] succinate 1-11 tablet by ity o f XL 100 mg 00:00: mouth [place] 24 hr 00 daily. Medical tablet Branch pantoprazol Yes [id number] 40mg Take 1 Univers e 40 mg EC 1-11 tablet by ity of tablet 00:00: mouth [place] 00 daily. Medical Branch isosorbide Yes [id number] 30mg Take 1 [facility] mononitrate 1-11 tablet by ity of 30 mg 24 hr 00:00: mouth [place] tablet 00 daily. Medical Branch metoprolol Yes [id number] 100mg Take 1 [facility] succinate 1-11 tablet by ity o f XL 100 mg 00:00: mouth [place] 24 hr 00 daily. Medical tablet Branch pantoprazol Yes [id number] 40mg Take 1 Univers e 40 mg EC 1-11 tablet by ity of tablet 00:00: mouth [place] 00 daily. Medical Branch isosorbide Yes [id number] 30mg Take 1 [facility] mononitrate 1-11 tablet by ity of 30 mg 24 hr 00:00: mouth [place] tablet 00 daily. Medical Branch metoprolol Yes [id number] 100mg Take 1 [facility] succinate 1-11 tablet by ity o f XL 100 mg 00:00: mouth [place] 24 hr 00 daily. Medical tablet Branch pantoprazol Yes [id number] 40mg Take 1 Univers e 40 mg EC 1-11 tablet by ity of tablet 00:00: mouth [place] 00 daily. Medical Branch isosorbide Yes [id number] 30mg Take 1 [facility] mononitrate 1-11 tablet by ity of 30 mg 24 hr 00:00: mouth [place] tablet 00 daily. Medical Branch metoprolol 0 Yes [id number] 100mg Take 1 [facility] succinate 1-11 tablet by ity o f XL 100 mg 00:00: mouth [place] 24 hr 00 daily. Medical tablet Branch pantoprazol Yes [id number] 40mg Take 1 Univers e 40 mg EC 1-11 tablet by ity of tablet 00:00: mouth [place] 00 daily. Medical Branch isosorbide 2020-0 Yes [id number] 30mg Take 1 [facility] mononitrate 1-11 tablet by ity of 30 mg 24 hr 00:00: mouth [place] tablet 00 daily. Medical Branch metoprolol Yes [id number] 100mg Take 1 [facility] succinate 1-11 tablet by ity o f XL 100 mg 00:00: mouth [place] 24 hr 00 daily. Medical tablet Branch pantoprazol Yes [id number] 40mg Take 1 Univers e 40 mg EC 1-11 tablet by ity of tablet 00:00: mouth [place] 00 daily. Medical Branch isosorbide 2020-0 Yes [id number] 30mg Take 1 [facility] mononitrate 1-11 tablet by ity of 30 mg 24 hr 00:00: mouth [place] tablet 00 daily. Medical Branch metoprolol Yes [id number] 100mg Take 1 [facility] succinate 1-11 tablet by ity o f XL 100 mg 00:00: mouth [place] 24 hr 00 daily. Medical tablet Branch pantoprazol Yes [id number] 40mg Take 1 [facility] e 40 mg EC 1-11 tablet by ity of tablet 00:00: mouth [place] 00 daily. Medical Branch pantoprazol 0 Yes [id number] 40mg Take 1 [facility] e 40 mg EC 1-11 tablet by ity of tablet 00:00: mouth [place] 00 daily. Medical Branch pantoprazol 0 Yes [id number] 40mg Take 1 [facility] e 40 mg EC 1-11 tablet by ity of tablet 00:00: mouth [place] 00 daily. Medical Branch pantoprazol Yes [id number] 40mg Take 1 [facility] e 40 mg EC 1-11 tablet by ity of tablet 00:00: mouth [place] 00 daily. Medical Branch pantoprazol Yes [id number] 40mg Take 1 [facility] e 40 mg EC 1-11 tablet by ity of tablet 00:00: mouth [place] 00 daily. Medical Branch pantoprazol Yes [id number] 40mg Take 1 [facility] e 40 mg EC 1-11 tablet by ity of tablet 00:00: mouth [place] 00 daily. Medical Branch pantoprazol Yes [id number] 40mg Take 1 [facility] e 40 mg EC 1-11 tablet by ity of tablet 00:00: mouth [place] 00 daily. Medical Branch pantoprazol Yes [id number] 40mg Take 1 [facility] e 40 mg EC 1-11 tablet by ity of tablet 00:00: mouth [place] 00 daily. Medical Branch pantoprazol Yes [id number] 40mg Take 1 [facility] e 40 mg EC 1-11 tablet by ity of tablet 00:00: mouth [place] 00 daily. Medical Branch pantoprazol Yes [id number] 40mg Take 1 [facility] e 40 mg EC 1-11 tablet by ity of tablet 00:00: mouth [place] 00 daily. Medical Branch pantoprazol Yes [id number] 40mg Take 1 [facility] e 40 mg EC 1-11 tablet by ity of tablet 00:00: mouth [place] 00 daily. Medical Branch pantoprazol Yes [id number] 40mg Take 1 [facility] e 40 mg EC 1-11 tablet by ity of tablet 00:00: mouth [place] 00 daily. Medical Branch pantoprazol Yes [id number] 40mg Take 1 [facility] e 40 mg EC 1-11 tablet by ity of tablet 00:00: mouth [place] 00 daily. Medical Branch pantoprazol Yes [id number] 40mg Take 1 [facility] e 40 mg EC 1-11 tablet by ity of tablet 00:00: mouth [place] 00 daily. Medical Branch pantoprazol Yes [id number] 40mg Take 1 Univers e 40 mg EC 1-11 tablet by ity of tablet 00:00: mouth [place] 00 daily. Medical Branch pantoprazol Yes [id number] 40mg Take 1 Univers e 40 mg EC 1-11 tablet by ity of tablet 00:00: mouth [place] 00 daily. Medical Branch pantoprazol Yes [id number] 40mg Take 1 Univers e 40 mg EC 1-11 tablet by ity of tablet 00:00: mouth [place] 00 daily. Medical Branch pantoprazol Yes [id number] 40mg Take 1 [facility] e 40 mg EC 1-11 tablet by ity of tablet 00:00: mouth [place] 00 daily. Medical Branch pantoprazol Yes [id number] 40mg Take 1 Univers e 40 mg EC 1-11 tablet by ity of tablet 00:00: mouth [place] 00 daily. Medical Branch pantoprazol Yes [id number] 40mg Take 1 [facility] e 40 mg EC 1-11 tablet by ity of tablet 00:00: mouth [place] 00 daily. Medical Branch pantoprazol Yes [id number] 40mg Take 1 [facility] e 40 mg EC 1-11 tablet by ity of tablet 00:00: mouth [place] 00 daily. Medical Branch pantoprazol Yes [id number] 40mg Take 1 [facility] e 40 mg EC 1-11 tablet by ity of tablet 00:00: mouth [place] 00 daily. Medical Branch pantoprazol Yes [id number] 40mg Take 1 [facility] e 40 mg EC 1-11 tablet by ity of tablet 00:00: mouth [place] 00 daily. Medical Branch pantoprazol Yes [id number] 40mg Take 1 [facility] e 40 mg EC 1-11 tablet by ity of tablet 00:00: mouth [place] 00 daily. Medical Branch pantoprazol Yes [id number] 40mg Take 1 [facility] e 40 mg EC 1-11 tablet by ity of tablet 00:00: mouth [place] 00 daily. Medical Branch pantoprazol Yes [id number] 40mg Take 1 [facility] e 40 mg EC 1-11 tablet by ity of tablet 00:00: mouth [place] 00 daily. Medical Branch pantoprazol Yes [id number] 40mg Take 1 [facility] e 40 mg EC 1-11 tablet by ity of tablet 00:00: mouth [place] 00 daily. Medical Branch pantoprazol Yes [id number] 40mg Take 1 [facility] e 40 mg EC 1-11 tablet by ity of tablet 00:00: mouth [place] 00 daily. Medical Branch pantoprazol Yes [id number] 40mg Take 1 [facility] e 40 mg EC 1-11 tablet by ity of tablet 00:00: mouth [place] 00 daily. Medical Branch pantoprazol Yes [id number] 40mg Take 1 [facility] e 40 mg EC 1-11 tablet by ity of tablet 00:00: mouth [place] 00 daily. Medical Branch pantoprazol Yes [id number] 40mg Take 1 [facility] e 40 mg EC 1-11 tablet by ity of tablet 00:00: mouth [place] 00 daily. Medical Branch pantoprazol Yes [id number] 40mg Take 1 [facility] e 40 mg EC 1-11 tablet by ity of tablet 00:00: mouth [place] 00 daily. Medical Branch pantoprazol Yes [id number] 40mg Take 1 Univers e 40 mg [...] disease daily. Medical Branch isosorbide 2020- No [id number] 30mg Take 1 [facility] mononitrate 06-08-12 tablet by it y of 30 mg 24 hr 00:00: 00:00 mouth [place] tablet 00 :00 daily. Medical Branch metoprolol 2020- No [id number] 100mg Take 1 [facility] succinate -04 01-12 tablet by ity of XL 100 mg 00:00: 00:00 mouth [place] 24 hr 00 :00 daily. Medical tablet Branch methocarbam Yes [id number] 500mg Take 1 [facility] oL 500 mg 1-08 tablet by ity o f tablet 00:00: mouth 4 [place] 00 (four) Medical times Branch daily as needed (muscle spasm). isosorbide Yes [id number] 30mg Take 1 [facility] mononitrate 1-08 tablet by ity of 30 mg 24 hr 00:00: mouth [place] tablet 00 daily. Medical Branch potassium Yes [id number] 10meq Take 1 U nivers chloride 10 1-08 tablet by ity of mEq CR 00:00: mouth [place] tablet 00 daily. Medical Branch methocarbam 2021-0 Yes [id number] 500mg Take 1 [facility] oL 500 mg 1-08 tablet by ity o f tablet 00:00: mouth 4 [place] 00 (four) Medical times Branch daily as needed (muscle spasm). potassium 2020-0 Yes [id number] 10meq Take 1 U nivers chloride 10 1-08 tablet by ity of mEq CR 00:00: mouth [place] tablet 00 daily. Medical Branch methocarbam Yes [id number] 500mg Take 1 [facility] oL 500 mg 1-08 tablet by ity o f tablet 00:00: mouth 4 [place] 00 (four) Medical times Branch daily as needed (muscle spasm). potassium 2020-0 Yes [id number] 10meq Take 1 U nivers chloride 10 1-08 tablet by ity of mEq CR 00:00: mouth [place] tablet 00 daily. Medical Branch methocarbam Yes [id number] 500mg Take 1 [facility] oL 500 mg 1-08 tablet by ity o f tablet 00:00: mouth 4 [place] 00 (four) Medical times Branch daily as needed (muscle spasm). potassium Yes [id number] 10meq Take 1 U nivers chloride 10 1-08 tablet by ity of mEq CR 00:00: mouth [place] tablet 00 daily. Medical Branch methocarbam Yes [id number] 500mg Take 1 [facility] oL 500 mg 1-08 tablet by ity o f tablet 00:00: mouth 4 [place] 00 (four) Medical times Branch daily as needed (muscle spasm). potassium 0 Yes [id number] 10meq Take 1 U nivers chloride 10 1-08 tablet by ity of mEq CR 00:00: mouth [place] tablet 00 daily. Medical Branch methocarbam Yes [id number] 500mg Take 1 [facility] oL 500 mg 1-08 tablet by [facility] o f tablet 00:00: mouth 4 [place] 00 (four) Medical times Branch daily as needed (muscle spasm). potassium 0 Yes [id number] 10meq Take 1 [facility] chloride 10 1-08 tablet by [facility] of mEq CR 00:00: mouth [place] tablet 00 daily. Medical Branch methocarbam Yes [id number] 500mg Take 1 [facility] oL 500 mg 1-08 tablet by [facility] o f tablet 00:00: mouth 4 [place] 00 (four) Medical times Branch daily as needed (muscle spasm). potassium Yes [id number] 10meq Take 1 [facility] chloride 10 1-08 tablet by [facility] of mEq CR 00:00: mouth [place] tablet 00 daily. Medical Branch methocarbam Yes [id number] 500mg Take 1 [facility] oL 500 mg 1-08 tablet by [facility] o f tablet 00:00: mouth 4 [place] 00 (four) Medical times Branch daily as needed (muscle spasm). potassium Yes [id number] 10meq Take 1 [facility] chloride 10 1-08 tablet by [facility] of mEq CR 00:00: mouth [place] tablet 00 daily. Medical Branch methocarbam Yes [id number] 500mg Take 1 [facility] oL 500 mg 1-08 tablet by [facility] o f tablet 00:00: mouth 4 [place] 00 (four) Medical times Branch daily as needed (muscle spasm). potassium Yes [id number] 10meq Take 1 [facility] chloride 10 1-08 tablet by [facility] of mEq CR 00:00: mouth [place] tablet 00 daily. Medical Branch potassium Yes [id number] 10meq Take 1 [facility] chloride 10 1-08 tablet by [facility] of mEq CR 00:00: mouth [place] tablet 00 daily. Medical Branch potassium Yes [id number] 10meq Take 1 [facility] chloride 10 1-08 tablet by [facility] of mEq CR 00:00: mouth [place] tablet 00 daily. Medical Branch potassium Yes [id number] 10meq Take 1 [facility] chloride 10 1-08 tablet by [facility] of mEq CR 00:00: mouth [place] tablet 00 daily. Medical Branch potassium 2020- No [id number] 10meq Take 1 [facility] chloride 10 1-08 -12 tablet by it y of mEq CR 00:00: 00:00 mouth [place] tablet 00 :00 daily. [facility] methocarbam 2020- No [id number] 500mg Take 1 [facility] oL 500 mg -08 -09 tablet by it[facility] of tablet 00:00: 00:00 mouth 4 [place] 00 :00 (four) Medical times Branch daily as needed (muscle spasm). methocarbam 2020- No [id number] 500mg Take 1 [facility] oL 500 mg -08 04-09 tablet by it[facility] of tablet 00:00: 00:00 mouth 4 [place] 00 :00 (four) Medical times Branch daily as needed (muscle spasm). isosorbide 2020-0 2021- No [id number] 30mg Take 1 [facility] mononitrate 06-05 tablet by it y of 30 mg 24 hr 00:00: 00:[place] mouth [place] 00 :00 daily. [facility] gabapentin 2020-1 Yes [id number] 800mg Take 1 [facility] 800 mg 2-22 tablet by [facility] of tablet 00:00: mouth 3 (three) Medical times Branch daily. gabapentin 2020-1 Yes [id number] 800mg Take 1 [facility] 800 mg 2-22 tablet by it[facility] of tablet 00:00: mouth 3 (three) Medical times Branch daily. gabapentin 2020-1 Yes [id number] 800mg Take 1 [facility] 800 mg 2-22 tablet by [facility] of tablet 00:00: mouth 3 (three) Medical times Branch daily. gabapentin 2020-1 Yes [id number] 800mg Take 1 [facility] 800 mg 2-22 tablet by [facility] of tablet 00:00: mouth 3 (three) Medical times Branch daily. gabapentin 2020-1 Yes [id number] 800mg Take 1 [facility] 800 mg 2-22 tablet by [facility] of tablet 00:00: mouth 3 (three) Medical times Branch daily. gabapentin 2020-1 Yes [id number] 800mg Take 1 [facility] 800 mg 2-22 tablet by [facility] of tablet 00:00: mouth 3 (three) Medical times Branch daily. gabapentin 2020-1 Yes [id number] 800mg Take 1 [facility] 800 mg 2-22 tablet by [facility] of tablet 00:00: mouth 3 (three) Medical times Branch daily. gabapentin 2020-1 Yes [id number] 800mg Take 1 [facility] 800 mg 2-22 tablet by it[facility] of tablet 00:00: mouth 3 (three) Medical times Branch daily. gabapentin 2020-1 Yes [id number] 800mg Take 1 [facility] 800 mg 2-22 tablet by [facility] of tablet 00:00: mouth 3 (three) Medical times Branch daily. gabapentin 2020-1 Yes [id number] 800mg Take 1 [facility] 800 mg 2-22 tablet by [facility] of tablet 00:00: mouth 3 (three) Medical times Branch daily. gabapentin 2020-1 Yes [id number] 800mg Take 1 [facility] 800 mg 2-22 tablet by [facility] of tablet 00:00: mouth 3 (three) Medical times Branch daily. gabapentin 2020-1 Yes [id number] 800mg Take 1 [facility] 800 mg 2-22 tablet by [facility] of tablet 00:00: mouth 3 (three) Medical times Branch daily. gabapentin 2020-1 Yes [id number] 800mg Take 1 [facility] 800 mg 2-22 tablet by [facility] of tablet 00:00: mouth 3 (three) Medical times Branch daily. gabapentin 2020-1 Yes [id number] 800mg Take 1 [facility] 800 mg 2-22 tablet by [facility] of tablet 00:00: mouth 3 (three) Medical times Branch daily. gabapentin 2020-1 Yes [id number] 800mg Take 1 [facility] 800 mg 2-22 tablet by [facility] of tablet 00:00: mouth (three) Medical times Branch daily. gabapentin 2020-1 Yes [id number] 800mg Take 1 [facility] 800 mg 2-22 tablet by [facility] of tablet 00:00: mouth (three) Medical times Branch daily. gabapentin 2020-1 Yes [id number] 800mg Take 1 [facility] 800 mg 2-22 tablet by [facility] of tablet 00:00: mouth (three) Medical times Branch daily. gabapentin 2020-1 Yes [id number] 800mg Take 1 [facility] 800 mg 2-22 tablet by [facility] of tablet 00:00: mouth (three) Medical times Branch daily. gabapentin 2020-1 Yes [id number] 800mg Take 1 [facility] 800 mg 2-22 tablet by [facility] of tablet 00:00: mouth (three) Medical times Branch daily. gabapentin 2020-1 Yes [id number] 800mg Take 1 [facility] 800 mg 2-22 tablet by [facility] of tablet 00:00: mouth 3 (three) Medical times Branch daily. gabapentin 2020-1 Yes [id number] 800mg Take 1 [facility] 800 mg 2-22 tablet by [facility] of tablet 00:00: mouth 3 (three) Medical times Branch daily. gabapentin 2020-1 Yes [id number] 800mg Take 1 [facility] 800 mg 2-22 tablet by [facility] of tablet 00:00: mouth 3 (three) Medical times Branch daily. gabapentin 2020-1 Yes [id number] 800mg Take 1 [facility] 800 mg 2-22 tablet by [facility] of tablet 00:00: mouth 3 (three) Medical times Branch daily. gabapentin 2020-1 Yes [id number] 800mg Take 1 [facility] 800 mg 2-22 tablet by [facility] of tablet 00:00: mouth 3 (three) Medical times Branch daily. gabapentin 2020-1 Yes [id number] 800mg Take 1 [facility] 800 mg 2-22 tablet by it[facility] of tablet 00:00: mouth (three) Medical times Branch daily. gabapentin 2020-1 Yes [id number] 800mg Take 1 [facility] 800 mg 2-22 tablet by [facility] of tablet 00:00: mouth (three) Medical times Branch daily. gabapentin 2020-1 Yes [id number] 800mg Take 1 [facility] 800 mg 2-22 tablet by [facility] of tablet 00:00: mouth (three) Medical times Branch daily. gabapentin 2020-1 Yes [id number] 800mg Take 1 [facility] 800 mg 2-22 tablet by [facility] of tablet 00:00: mouth (three) Medical times Branch daily. gabapentin 2020-1 Yes [id number] 800mg Take 1 [facility] 800 mg 2-22 tablet by [facility] of tablet 00:00: mouth (three) Medical times Branch daily. gabapentin 2020-1 Yes [id number] 800mg Take 1 [facility] 800 mg 2-22 tablet by [facility] of tablet 00:00: mouth (three) Medical times Branch daily. gabapentin 2020-1 Yes [id number] 800mg Take 1 [facility] 800 mg 2-22 [...] Medical times Branch daily. gabapentin 2019-2020- No [id number] 800mg Take 1 [facility] 800 mg 2-22 07-23 tablet by [facility] of tablet 00:00: 00:00 mouth 3 [place] 00 :00 (three) Medical times Branch daily. methocarbam 2020- Yes [id number] 500mg Take 1 [facility] oL 500 mg 2-11 tablet by [facility] o f tablet 00:00: mouth 4 (four) Medical times Branch daily as needed (muscle spasm). methocarbam 2019-05 Yes [id number] 500mg Take 1 [facility] oL 500 mg 2-11 tablet by it[facility] o f tablet 00:00: mouth 4 (four) Medical times Branch daily as needed (muscle spasm). methocarbam 2019-05 Yes [id number] 500mg Take 1 [facility] oL 500 mg 2-11 tablet by ity o f tablet 00:00: mouth 4 (four) Medical times Branch daily as needed (muscle spasm). methocarbam 2019-05 Yes [id number] 500mg Take 1 [facility] oL 500 mg 2-11 tablet by it[facility] o f tablet 00:00: mouth (four) Medical times Branch daily as needed (muscle spasm). methocarbam 2019-05 Yes [id number] 500mg Take 1 [facility] oL 500 mg 2-11 tablet by ity o f tablet 00:00: mouth (four) Medical times Branch daily as needed (muscle spasm). methocarbam 2019-05 Yes [id number] 500mg Take 1 [facility] oL 500 mg 2-11 tablet by ity o f tablet 00:00: mouth (four) Medical times Branch daily as needed (muscle spasm). methocarbam 2019-05 Yes [id number] 500mg Take 1 [facility] oL 500 mg 2-11 tablet by ity o f tablet 00:00: mouth (four) Medical times Branch daily as needed (muscle spasm). methocarbam 2019-05- No [id number] 500mg Take 1 [facility] oL 500 mg 2-11 -08 tablet by [facility] of tablet 00:00: 00:00 mouth 4 [place] 00 :00 (four) Medical times Branch daily as needed (muscle spasm). PANTOPRAZOL 2019-05 Yes [id number] TAKE 1 [facility] E 40 mg EC 1-18 TABLET BY ity of tablet 00:00: MOUTH ONCE 00 DAILY DO Medical NOT CRUSH Branch OR CHEW FUROSEMIDE 2019-05 Yes [id number] Take 1 [facility] n[facility] 20 mg 1-18 tablet by [facility] of tablet 00:00: mouth once 00 daily Medical Branch POTASSIUM 2019-05 Yes [id number] Take 1 [facility] CHLORIDE 10 1-18 tablet by [facility] of mEq CR 00:00: mouth once [place] tablet 00 daily Medical Branch PANTOPRAZOL 2020- Yes [id number] TAKE 1 [facility] E 40 mg EC 1-18 TABLET BY ity of tablet 00:00: MOUTH ONCE [place] 00 DAILY DO Medical NOT CRUSH Branch OR CHEW FUROSEMIDE 2020- Yes [id number] Take 1 [facility] nivers 20 mg 1-18 tablet by [facility] of tablet 00:00: mouth once [place] 00 daily Medical Branch POTASSIUM 2020- Yes [id number] Take 1 [facility] CHLORIDE 10 1-18 tablet by [facility] of mEq CR 00:00: mouth once [place] tablet 00 daily Medical Branch PANTOPRAZOL 2020- Yes [id number] TAKE 1 [facility] E 40 mg EC 1-18 TABLET BY ity of tablet 00:00: MOUTH ONCE [place] 00 DAILY DO Medical NOT CRUSH Branch OR CHEW FUROSEMIDE 2020- Yes [id number] Take 1 [facility] nivers 20 mg 1-18 tablet by [facility] of tablet 00:00: mouth once [place] 00 daily Medical Branch POTASSIUM 2020- Yes [id number] Take 1 [facility] CHLORIDE 10 1-18 tablet by [facility]y of mEq CR 00:00: mouth once [place] tablet 00 daily Medical Branch PANTOPRAZOL 2020- Yes [id number] TAKE 1 [facility] E 40 mg EC 1-18 TABLET BY ity of tablet 00:00: MOUTH ONCE [place] 00 DAILY DO Medical NOT CRUSH Branch OR CHEW FUROSEMIDE 2020- Yes [id number] Take 1 [facility] nivers 20 mg 1-18 tablet by ity of tablet 00:00: mouth once [place] 00 daily Medical Branch POTASSIUM 2020- Yes [id number] Take 1 [facility] CHLORIDE 10 1-18 tablet by ity of mEq CR 00:00: mouth once [place] tablet 00 daily Medical Branch PANTOPRAZOL 2020- Yes [id number] TAKE 1 [facility] E 40 mg EC 1-18 TABLET BY ity of tablet 00:00: MOUTH ONCE [place] 00 DAILY DO Medical NOT CRUSH Branch OR CHEW FUROSEMIDE 2020- Yes [id number] Take 1 [facility] nivers 20 mg 1-18 tablet by it[facility] of tablet 00:00: mouth once [place] 00 daily Medical Branch POTASSIUM 2020- Yes [id number] Take 1 [facility] [place] CHLORIDE 10 1-18 tablet by [facility] of mEq CR 00:00: mouth once [place] tablet 00 daily Medical Branch PANTOPRAZOL 2020- Yes [id number] TAKE 1 [facility] E 40 mg EC 1-18 TABLET BY ity of tablet 00:00: MOUTH ONCE [place] 00 DAILY DO Medical NOT CRUSH Branch OR CHEW FUROSEMIDE 2020- Yes [id number] Take 1 [facility] nivers 20 mg 1-18 tablet by ity of tablet 00:00: mouth once [place] 00 daily Medical Branch POTASSIUM 2020- Yes [id number] Take 1 [facility] [place] CHLORIDE 10 1-18 tablet by ity of mEq CR 00:00: mouth once [place] tablet 00 daily Medical Branch PANTOPRAZOL 2020- Yes [id number] TAKE 1 [facility] E 40 mg EC 1-18 TABLET BY ity of tablet 00:00: MOUTH ONCE [place] 00 DAILY DO Medical NOT CRUSH Branch OR CHEW FUROSEMIDE 2020- Yes [id number] Take 1 [facility] nivers 20 mg 1-18 tablet by it[facility] of tablet 00:00: mouth once [place] 00 daily Medical Branch POTASSIUM 2020- Yes [id number] Take 1 [facility] CHLORIDE 10 1-18 tablet by ity of mEq CR 00:00: mouth once [place] tablet 00 daily Medical Branch PANTOPRAZOL 2020- Yes [id number] TAKE 1 [facility] E 40 mg EC 1-18 TABLET BY ity of tablet 00:00: MOUTH ONCE [place] 00 DAILY DO Medical NOT CRUSH Branch OR CHEW FUROSEMIDE 2020- Yes [id number] Take 1 [facility] 20 mg 1-18 tablet by [facility] of tablet 00:00: mouth once [place] 00 daily Medical Branch POTASSIUM 2020- Yes [id number] Take 1 [facility] CHLORIDE 10 1-18 tablet by ity of mEq CR 00:00: mouth once [place] tablet 00 daily Medical Branch PANTOPRAZOL 2020- Yes [id number] TAKE 1 [facility] E 40 mg EC 1-18 TABLET BY ity of tablet 00:00: MOUTH ONCE [place] 00 DAILY DO Medical NOT CRUSH Branch OR CHEW FUROSEMIDE 2020- Yes [id number] Take 1 [facility] 20 mg 1-18 tablet by ity of tablet 00:00: mouth once [place] 00 daily Medical Branch FUROSEMIDE 2020- Yes [id number] Take 1 [facility]ivers 20 mg 1-18 tablet by ity of tablet 00:00: mouth once [place] 00 daily Medical Branch FUROSEMIDE 2020- Yes [id number] Take 1 [facility] nivers 20 mg 1-18 tablet by ity of tablet 00:00: mouth once [place] 00 daily Medical Branch FUROSEMIDE 2020- Yes [id number] Take 1 [facility] nivers 20 mg 1-18 tablet by ity of tablet 00:00: mouth once [place] daily Medical Branch FUROSEMIDE 2019-05 Yes [id number] Take 1 [facility] nivers 20 mg 1-18 tablet by ity of tablet 00:00: mouth once [place] daily Medical Branch FUROSEMIDE 2019-05 Yes [id number] Take 1 [facility] nivers 20 mg 1-18 tablet by ity of tablet 00:00: mouth once [place] daily Medical Branch FUROSEMIDE 2019-05 Yes [id number] Take 1 [facility] 20 mg 1-18 tablet by ity of tablet 00:00: mouth once [place] daily Medical Branch FUROSEMIDE 2019-05 Yes [id number] Take 1 [facility] 20 mg 1-18 tablet by ity of tablet 00:00: mouth once [place] daily Medical Branch FUROSEMIDE 2019-05 Yes [id number] Take 1 [facility] nivers 20 mg 1-18 tablet by ity of tablet 00:00: mouth once [place] daily Medical Branch FUROSEMIDE 2019-05 Yes [id number] Take 1 [facility] n[facility] 20 mg 1-18 tablet by ity of tablet 00:00: mouth once [place] daily Medical Branch FUROSEMIDE 2019-05 Yes [id number] Take 1 [facility] n[facility] 20 mg 1-18 tablet by ity of tablet 00:00: mouth once [place] daily Medical Branch FUROSEMIDE 2019-05 Yes [id number] Take 1 [facility] 20 mg 1-18 tablet by ity of tablet 00:00: mouth once [place] daily Medical Branch FUROSEMIDE 2019-05- No [id number] Take 1 [facility] 20 mg 1-18 -12 tablet by [facility] tablet 00:00: 00:00 mouth once [place] 00 :00 daily [facility] PANTOPRAZOL 2019-05- No [id number] TAKE 1 [facility] E 40 mg EC -18 06-08 TABLET BY it[facility] of tablet 00:00: 00:00 MOUTH ONCE [place] 00 :00 DAILY DO Medical NOT CRUSH Branch OR CHEW POTASSIUM 2019-05- No [id number] Take 1 [facility] CHLORIDE 10 -18 06-05 tablet by it y of mEq CR 00:00: 00:00 mouth once [place] tablet 00 :00 daily Medical Branch gabapentin 2019-05 Yes [id number] 800mg Take 1 [facility] 800 mg 1-16 tablet by [facility] of tablet 00:00: mouth 3 (three) Medical times Branch daily. gabapentin 2019-05 Yes [id number] 800mg Take 1 [facility] 800 mg 1-16 tablet by [facility] of tablet 00:00: mouth 3 00 (three) Medical times Branch daily. gabapentin 2020-1 Yes [id number] 800mg Take 1 [facility] 800 mg 1-16 tablet by [facility] of tablet 00:00: mouth 3 00 (three) Medical times Branch daily. gabapentin 2020-1 Yes [id number] 800mg Take 1 [facility] 800 mg 1-16 tablet by [facility] of tablet 00:00: mouth 3 00 (three) Medical times Branch daily. gabapentin 2020-1 Yes [id number] 800mg Take 1 [facility] 800 mg 1-16 tablet by ity of tablet 00:00: mouth 3 00 (three) Medical times Branch daily. gabapentin 2020-1 Yes [id number] 800mg Take 1 [facility] 800 mg 1-16 tablet by it[facility] of tablet 00:00: mouth 3 00 (three) Medical times Branch daily. gabapentin 2020- Yes [id number] 800mg Take 1 [facility] 800 mg 1-16 tablet by it[facility] of tablet 00:00: mouth 3 00 (three) Medical times Branch daily. gabapentin 2020-1 Yes [id number] 800mg Take 1 [facility] 800 mg 1-16 tablet by it[facility] of tablet 00:00: mouth 3 00 (three) Medical times Branch daily. gabapentin 2019- 2020- No [id number] 800mg Take 1 [facility] 800 mg 1-16 12-22 tablet by [facility] of tablet 00:00: 00:00 mouth 3 [place] 00 :00 (three) Medical times Branch daily. Nitrofurant 2019- Yes [id number] 100mg Take 1 [facility] oin&Nit. 1-10 capsule by it[facility] o f Macrocryst 00:00: mouth 2 [place] (MACROBID) 00 (two) Medical 100 mg times Branch capsule daily. Nitrofurant 2019- Yes [id number] 100mg Take 1 [facility] oin&Nit. 1-10 capsule by it[facility] o f Macrocryst 00:00: mouth 2 [place] (MACROBID) 00 (two) Medical 100 mg times Branch capsule daily. Nitrofurant 2019- Yes [id number] 100mg Take 1 [facility] oin&Nit. 1-10 capsule by it[facility] o f Macrocryst 00:00: mouth 2 [place] (MACROBID) 00 (two) Medical 100 mg times Branch capsule daily. Nitrofurant 2019-05 Yes [id number] 100mg Take 1 [facility] oin&Nit. 1-10 capsule by [facility] o f Macrocryst 00:00: mouth 2 [place] (MACROBID) 00 (two) Medical 100 mg times Branch capsule daily. Nitrofurant 2019-05 Yes [id number] 100mg Take 1 [facility] oin&Nit. 1-10 capsule by [facility] o f Macrocryst 00:00: mouth 2 [place] (MACROBID) 00 (two) Medical 100 mg times Branch capsule daily. Nitrofurant 2019-05 Yes [id number] 100mg Take 1 [facility] oin&Nit. 1-10 capsule by [facility] o f Macrocryst 00:00: mouth 2 [place] (MACROBID) 00 (two) Medical 100 mg times Branch capsule daily. Nitrofurant 2019-05 Yes [id number] 100mg Take 1 [facility] oin&Nit. 1-10 capsule by [facility] o f Macrocryst 00:00: mouth 2 [place] (MACROBID) 00 (two) Medical 100 mg times Branch capsule daily. Nitrofurant 2019-05 Yes [id number] 100mg Take 1 [facility] oin&Nit. 1-10 capsule by [facility] o f Macrocryst 00:00: mouth 2 [place] (MACROBID) 00 (two) Medical 100 mg times Branch capsule daily. Nitrofurant 2019-05 2020- No [id number] 100mg Take 1 [facility] oin&Nit. 1-10 12-19 capsule by ity of Macrocryst 00:00: 00:00 mouth 2 [place] (MACROBID) 00 :00 (two) Medical 100 mg times Branch capsule daily. Nitrofurant 2019-05 2020- No [id number] 100mg Take 1 [facility] oin&Nit. 1-10 12-19 [...] for tablet 7 days. metroNIDAZO 2019-05 Yes [id number] 500mg Take 1 [facility] LE 500 mg 1-06 tablet by ity o f tablet 00:00: mouth [place] 00 every 12 Medical (twelve) Branch hours. clotrimazol 2019-05 Yes [id number] Apply to [facility] e-betametha 1-06 area(s) 2 ity of sone cream 00:00: (two) [place] 00 times Medical daily. Use Branch for 2 weeks on affected area metroNIDAZO 2019-05 Yes [id number] 500mg Take 1 [facility] LE 500 mg 1-06 tablet by ity o f tablet 00:00: mouth [place] 00 every 12 Medical (twelve) Branch hours. clotrimazol 2019- Yes [id number] Apply to [facility] e-betametha 1-06 area(s) 2 ity of sone cream 00:00: (two) [place] 00 times Medical daily. Use Branch for 2 weeks on affected area metroNIDAZO 2019- Yes [id number] 500mg Take 1 [facility] LE 500 mg 1-06 tablet by ity o f tablet 00:00: mouth [place] 00 every 12 Medical (twelve) Branch hours. clotrimazol 2019- Yes [id number] Apply to [facility] e-betametha 1-06 area(s) 2 ity of sone cream 00:00: (two) [place] 00 times Medical daily. Use Branch for 2 weeks on affected area metroNIDAZO 2019-05 Yes [id number] 500mg Take 1 [facility] LE 500 mg 1-06 tablet by ity o f tablet 00:00: mouth [place] 00 every 12 Medical (twelve) Branch hours. clotrimazol 2019- Yes [id number] Apply to [facility] e-betametha 1-06 area(s) 2 ity of sone cream 00:00: (two) [place] 00 times Medical daily. Use Branch for 2 weeks on affected area metroNIDAZO 2020- Yes [id number] 500mg Take 1 [facility] LE 500 mg 1-06 tablet by ity o f tablet 00:00: mouth [place] 00 every 12 Medical (twelve) Branch hours. clotrimazol 2020- Yes [id number] Apply to [facility] e-betametha 1-06 area(s) 2 ity of sone cream 00:00: (two) [place] 00 times Medical daily. Use Branch for 2 weeks on affected area metroNIDAZO 2019-05 Yes [id number] 500mg Take 1 [facility] LE 500 mg 1-06 tablet by ity o f tablet 00:00: mouth [place] 00 every 12 Medical (twelve) Branch hours. clotrimazol 2019- Yes [id number] Apply to [facility] e-betametha 1-06 area(s) 2 ity of sone cream 00:00: (two) [place] 00 times Medical daily. Use Branch for 2 weeks on affected area metroNIDAZO 2019-05 Yes [id number] 500mg Take 1 [facility] LE 500 mg 1-06 tablet by ity o f tablet 00:00: mouth [place] 00 every 12 Medical (twelve) Branch hours. clotrimazol 2019- Yes [id number] Apply to [facility] e-betametha 1-06 area(s) 2 ity of sone cream 00:00: (two) [place] 00 times Medical daily. Use Branch for 2 weeks on affected area metroNIDAZO 2019- Yes [id number] 500mg Take 1 [facility] LE 500 mg 1-06 tablet by ity o f tablet 00:00: mouth [place] 00 every 12 Medical (twelve) Branch hours. clotrimazol 2020- Yes [id number] Apply to [facility] e-betametha 1-06 area(s) 2 ity of sone cream 00:00: (two) [place] 00 times Medical daily. Use Branch for 2 weeks on affected area metroNIDAZO 2019-05 Yes [id number] 500mg Take 1 [facility] LE 500 mg 1-06 tablet by ity o f tablet 00:00: mouth [place] 00 every 12 Medical (twelve) Branch hours. clotrimazol 2020- Yes [id number] Apply to [facility] e-betametha 1-06 area(s) 2 ity of sone cream 00:00: (two) [place] 00 times Medical daily. Use Branch for 2 weeks on affected area metroNIDAZO 2020- Yes [id number] 500mg Take 1 [facility] LE 500 mg 1-06 tablet by ity o f tablet 00:00: mouth [place] 00 every 12 Medical (twelve) Branch hours. clotrimazol 2020- Yes [id number] Apply to [facility] e-betametha 1-06 area(s) 2 ity of sone cream 00:00: (two) [place] 00 times Medical daily. Use Branch for 2 weeks on affected area metroNIDAZO 2020- Yes [id number] 500mg Take 1 [facility] LE 500 mg 1-06 tablet by ity o f tablet 00:00: mouth [place] 00 every 12 Medical (twelve) Branch hours. clotrimazol 2020- Yes [id number] Apply to [facility] e-betametha 1-06 area(s) 2 ity of sone cream 00:00: (two) [place] 00 times Medical daily. Use Branch for 2 weeks on affected area metroNIDAZO 2020- Yes [id number] 500mg Take 1 [facility] LE 500 mg 1-06 tablet by ity o f tablet 00:00: mouth [place] 00 every 12 Medical (twelve) Branch hours. clotrimazol 2020- Yes [id number] Apply to [facility] e-betametha 1-06 area(s) 2 ity of sone cream 00:00: (two) [place] 00 times Medical daily. Use Branch for 2 weeks on affected area clotrimazol 2020- Yes [id number] Apply to [facility] e-betametha 1-06 area(s) 2 ity of sone cream 00:00: (two) [place] 00 times Medical daily. Use Branch for 2 weeks on affected area clotrimazol 2020- Yes [id number] Apply to [facility] e-betametha 1-06 area(s) 2 ity of sone cream 00:00: (two) [place] 00 times Medical daily. Use Branch for 2 weeks on affected area clotrimazol 2020- Yes [id number] Apply to [facility] e-betametha 1-06 area(s) 2 ity of sone cream 00:00: (two) [place] 00 times Medical daily. Use Branch for 2 weeks on affected area clotrimazol 2020-1 Yes [id number] Apply to [facility] e-betametha 1-06 area(s) 2 ity of sone cream 00:00: (two) [place] 00 times Medical daily. Use Branch for 2 weeks on affected area clotrimazol 2020-1 Yes [id number] Apply to [facility] e-betametha 1-06 area(s) 2 ity of sone cream 00:00: (two) [place] 00 times Medical daily. Use Branch for 2 weeks on affected area clotrimazol 2020-1 Yes [id number] Apply to [facility] e-betametha 1-06 area(s) 2 ity of sone cream 00:00: (two) [place] 00 times Medical daily. Use Branch for 2 weeks on affected area clotrimazol 2020-1 Yes [id number] Apply to [facility] e-betametha 1-06 area(s) 2 ity of sone cream 00:00: (two) [place] 00 times Medical daily. Use Branch for 2 weeks on affected area clotrimazol 2020-1 Yes [id number] Apply to [facility] e-betametha 1-06 area(s) 2 ity of sone cream 00:00: (two) [place] 00 times Medical daily. Use Branch for 2 weeks on affected area clotrimazol 2020-1 Yes [id number] Apply to [facility] e-betametha 1-06 area(s) 2 ity of sone cream 00:00: (two) [place] 00 times Medical daily. Use Branch for 2 weeks on affected area clotrimazol 2020-1 Yes [id number] Apply to [facility] e-betametha 1-06 area(s) 2 ity of sone cream 00:00: (two) [place] 00 times Medical daily. Use Branch for 2 weeks on affected area clotrimazol 2020-1 Yes [id number] Apply to [facility] e-betametha 1-06 area(s) 2 ity of sone cream 00:00: (two) [place] 00 times Medical daily. Use Branch for 2 weeks on affected area clotrimazol 2020-1 Yes [id number] Apply to [facility] e-betametha 1-06 area(s) 2 ity of sone cream 00:00: (two) [place] 00 times Medical daily. Use Branch for 2 weeks on affected area clotrimazol 2019-05- No [id number] Apply to [facility] e-betametha 06-03 area(s) 2 it y of sone cream 00:00: 00:00 (two) [place] 00 :00 times Medical daily. Use Branch for 2 weeks on affected area clotrimazol 2019-05- No [id number] Apply to [facility] e-betametha 06-03 area(s) 2 it y of sone cream 00:00: 00:00 (two) [place] 00 :00 times Medical daily. Use Branch for 2 weeks on affected area metroNIDAZO 2019-05- No [id number] 500mg Take 1 [facility] LE 500 mg 06-03 tablet by ity of tablet 00:00: 00:00 mouth [place] 00 :00 every 12 Medical (twelve) Branch hours. metroNIDAZO 2019-05- No [id number] 500mg Take 1 [facility] LE 500 mg 06-03 tablet by ity of tablet 00:00: 00:00 mouth [place] 00 :00 every 12 Medical (twelve) Branch hours. fluconazole 2019-05- No [id number] 150mg Take 1 [facility] 150 mg 06-03 tablet by ity of tablet 00:00: 05:59 mouth [place] 00 :00 every 72 [facility] hours for 2 doses. Take one tab now and a second dose in 72 hours fluconazole 2019-05- No [id number] 150mg Take 1 [facility] 150 mg 06-03 tablet by ity of tablet 00:00: 05:59 mouth [place] 00 :00 every 72 [facility] ([facility] [facility] for 2 doses. Take one tab now and a second dose in 72 hours fluconazole 2019-05- No [id number] 150mg Take 1 [facility] 150 mg 06-03 tablet by [facility] tablet 00:00: 05:59 mouth [place] 00 :00 every 72 [facility] hours for 2 doses. Take one tab now and a second dose in 72 hours fluconazole 2019-05- No [id number] 150mg Take 1 [facility] 150 mg 06-03 tablet by [facility] tablet 00:00: 05:59 mouth [place] 00 :00 every 72 [facility] hours for 2 doses. Take one tab now and a second dose in 72 hours PANTOPRAZOL 2020-1 Yes [id number] TAKE 1 [facility] E 40 mg EC 0-23 TABLET BY ity of tablet 00:00: MOUTH ONCE [place] 00 DAILY DO Medical NOT CRUSH Branch OR CHEW POTASSIUM 2020-1 Yes [id number] Take 1 [facility] CHLORIDE 10 0-23 tablet by ity of mEq CR 00:00: mouth once [place] tablet 00 daily Medical Branch PANTOPRAZOL 2020- Yes [id number] TAKE 1 [facility] E 40 mg EC 0-23 TABLET BY ity of tablet 00:00: MOUTH ONCE [place] 00 DAILY DO Medical NOT CRUSH Branch OR CHEW POTASSIUM 2020-1 Yes [id number] Take 1 [facility] CHLORIDE 10 0-23 tablet by ity of mEq CR 00:00: mouth once [place] tablet 00 daily Medical Branch PANTOPRAZOL 2020- Yes [id number] TAKE 1 [facility] E 40 mg EC 0-23 TABLET BY it[facility] of tablet 00:00: MOUTH ONCE [place] 00 DAILY DO Medical NOT CRUSH Branch OR CHEW POTASSIUM 2020-1 Yes [id number] Take 1 [facility] CHLORIDE 10 0-23 tablet by ity of mEq CR 00:00: mouth once [place] tablet 00 daily Medical Branch PANTOPRAZOL 2020- Yes [id number] TAKE 1 [facility] E 40 mg EC 0-23 TABLET BY ity of tablet 00:00: MOUTH ONCE [place] 00 DAILY DO Medical NOT CRUSH Branch OR CHEW POTASSIUM 2020-1 Yes [id number] Take 1 [facility] CHLORIDE 10 0-23 tablet by ity of mEq CR 00:00: mouth once [place] tablet 00 daily Medical Branch PANTOPRAZOL 2020- Yes [id number] TAKE 1 [facility] E 40 mg EC 0-23 TABLET BY ity of tablet 00:00: MOUTH ONCE [place] 00 DAILY DO Medical NOT CRUSH Branch OR CHEW POTASSIUM 2020-1 Yes [id number] Take 1 [facility] CHLORIDE 10 0-23 tablet by ity of mEq CR 00:00: mouth once [place] tablet 00 daily Medical Branch PANTOPRAZOL 2020-1 Yes [id number] TAKE 1 [facility] E 40 mg EC 0-23 TABLET BY ity of tablet 00:00: MOUTH ONCE [place] 00 DAILY DO Medical NOT CRUSH Branch OR CHEW POTASSIUM 2020-1 Yes [id number] Take 1 [facility] CHLORIDE 10 0-23 tablet by ity of mEq CR 00:00: mouth once [place] tablet 00 daily Medical Branch PANTOPRAZOL 2020-1 Yes [id number] TAKE 1 [facility] E 40 mg EC 0-23 TABLET BY ity of tablet 00:00: MOUTH ONCE 00 DAILY DO Medical NOT CRUSH Branch OR CHEW POTASSIUM 2020- Yes [id number] Take 1 [facility] CHLORIDE 10 0-23 tablet by ity of mEq CR 00:00: mouth once [place] tablet 00 daily Medical Branch PANTOPRAZOL 2019- Yes [id number] TAKE 1 [facility] E 40 mg EC 0-23 TABLET BY ity of tablet 00:00: MOUTH ONCE [place] 00 DAILY DO Medical NOT CRUSH Branch OR CHEW POTASSIUM 2020-1 Yes [id number] Take 1 [facility] CHLORIDE 10 0-23 tablet by ity of mEq CR 00:00: mouth once [place] tablet 00 daily Medical Branch PANTOPRAZOL 2019-05 2020- No [id number] TAKE 1 [facility] E 40 mg EC 0-23 11-18 TABLET BY ity of tablet 00:00: 00:00 M[place]TH [place]CE [place] 00 :00 DAILY DO Medical NOT CRUSH Branch OR CHEW POTASSIUM 2019- 2020- No [id number] Take 1 [facility] n[facility] CHLORIDE 10 0-23 11-18 tablet by it y of mEq CR 00:00: 00:00 mouth [place] tablet 00 :00 daily Medical Branch gabapentin 2019- Yes [id number] 800mg Take 1 [facility] 800 mg 0-14 tablet by ity of tablet 00:00: mouth () Medical times Branch daily. gabapentin 2020- Yes [id number] 800mg Take 1 [facility] 800 mg 0-14 tablet by ity of tablet 00:00: mouth (three) Medical times Branch daily. gabapentin 2020- Yes [id number] 800mg Take 1 [facility] 800 mg 0-14 tablet by ity of tablet 00:00: mouth 3 (three) Medical times Branch daily. gabapentin 2020-1 Yes [id number] 800mg Take 1 [facility] 800 mg 0-14 tablet by ity of tablet 00:00: mouth 3 (three) Medical times Branch daily. gabapentin 2020-1 Yes [id number] 800mg Take 1 [facility] 800 mg 0-14 tablet by ity of tablet 00:00: mouth 3 (three) Medical times Branch daily. gabapentin 2020- Yes [id number] 800mg Take 1 [facility] 800 mg 0-14 tablet by it[facility] of tablet 00:00: mouth 3 (three) Medical times Branch daily. gabapentin 2020-1 Yes [id number] 800mg Take 1 [facility] 800 mg 0-14 tablet by ity of tablet 00:00: mouth 3 [place] 00 (three) Medical times Branch daily. gabapentin 2020-1 Yes [id number] 800mg Take 1 [facility] 800 mg 0-14 tablet by ity of tablet 00:00: mouth 3 [place] 00 (three) Medical times Branch daily. gabapentin 2020-1 2020- No [id number] 800mg Take 1 [facility] 800 mg 0-14 11-16 tablet by ity of tablet 00:00: 00:00 mouth 3 [place] 00 :00 (three) Medical times Branch daily. FUROSEMIDE 2020-0 Yes [id number] Take 1 [facility] n[facility] 20 mg 8-18 tablet by ity of tablet 00:00: mouth once [place] daily Medical Branch FUROSEMIDE 2020-0 Yes [id number] Take 1 [facility] n[facility] 20 mg 8-18 tablet by ity of tablet 00:00: mouth once [place] daily Medical Branch FUROSEMIDE 2020-0 Yes [id number] Take 1 [facility] n[facility] 20 mg 8-18 tablet by ity of tablet 00:00: mouth once [place] daily Medical Branch FUROSEMIDE 2020-0 Yes [id number] Take 1 [facility] n[facility] 20 mg 8-18 tablet by ity of tablet 00:00: mouth once [place] daily Medical Branch FUROSEMIDE 2020-0 Yes [id number] Take 1 [facility] n[facility] 20 mg 8-18 tablet by ity of tablet 00:00: mouth once [place] daily Medical Branch FUROSEMIDE 2020-0 Yes [id number] Take 1 [facility] nivers 20 mg 8-18 tablet by ity of tablet 00:00: mouth once [place] daily Medical Branch FUROSEMIDE 2020-0 Yes [id number] Take 1 [facility] nivers 20 mg 8-18 tablet by ity of tablet 00:00: mouth once [place] daily Medical Branch FUROSEMIDE 2020-0 Yes [id number] Take 1 [facility] nivers 20 mg 8-18 tablet by ity of tablet 00:00: mouth once [place] daily Medical Branch FUROSEMIDE 2020-0 Yes [id number] Take 1 [facility] n[facility] 20 mg 8-18 tablet by ity of tablet 00:00: mouth once [place] daily Medical Branch FUROSEMIDE 2020-0 Yes [id number] Take 1 [facility] nivers 20 mg 8-18 tablet by ity of tablet 00:00: mouth once [place] daily Medical Branch FUROSEMIDE 2020-0 Yes [id number] Take 1 [facility] nivers 20 mg 8-18 tablet by ity of tablet 00:00: mouth once 00 daily Medical Branch FUROSEMIDE 2020-0 Yes [id number] Take 1 [facility] n[facility] 20 mg 8-18 tablet by ity of tablet 00:00: mouth once 00 daily Medical Branch FUROSEMIDE 2020-0 2020- No [id number] Take 1 [facility] 20 mg 8-18 11-18 tablet by [facility] tablet 00:00: 00:00 mouth once [place] 00 :00 daily [facility] fluconazole 2020-0 2020- No [id number] 150mg Take 1 [facility] 150 mg 8-14 08-15 tablet by [facility] tablet 00:00: 04:59 mouth once [place] 00 :00 now for 1 Medical dose. Branch fluconazole 2020-0 2020- No [id number] 150mg Take 1 [facility] 150 mg 8-14 08-15 tablet by [facility] tablet 00:00: 04:59 mouth once [place] 00 :00 now for 1 Medical dose. Branch gabapentin 2020-0 Yes [id number] 800mg Take 1 [facility] 800 mg 7-15 tablet by ity of tablet 00:00: mouth 3 ([facility]) Medical times Branch daily. gabapentin 2020-0 Yes [id number] 800mg Take 1 [facility] 800 mg 7-15 tablet by ity of tablet 00:00: mouth ([facility]) Medical times Branch daily. gabapentin 2020-0 Yes [id number] 800mg Take 1 [facility] 800 mg 7-15 tablet by ity of tablet 00:00: mouth (three) Medical times Branch daily. gabapentin 2020-0 Yes [id number] 800mg Take 1 [facility] 800 mg 7-15 tablet by ity of tablet 00:00: mouth (three) Medical times Branch daily. gabapentin 2020-0 Yes [id number] 800mg Take 1 [facility] 800 mg 7-15 tablet by ity of tablet 00:00: mouth (three) Medical times Branch daily. gabapentin 2020-0 Yes [id number] 800mg Take 1 [facility] 800 mg 7-15 tablet by ity of tablet 00:00: mouth 3 (three) Medical times Branch daily. gabapentin 2020-0 Yes [id number] 800mg Take 1 [facility] 800 mg 7-15 tablet by ity of tablet 00:00: mouth (three) Medical times Branch daily. gabapentin 2020-0 2020- No [id number] 800mg Take 1 [facility] 800 mg 7-15 10-14 tablet by ity of tablet 00:00: 00:00 mouth 3 [place] 00 :00 (three) Medical times Branch daily. metFORMIN 2020-0 Yes 1000mg Take 2 [facility] ers 500 mg 7-09 tablets by ity of tablet 00:00: mouth 2 [place] 00 (two) Medical times Branch daily with meals. pantoprazol 2020-0 Yes [id number] 40mg Take 1 [facility] e 40 mg EC 7-09 tablet by ity of tablet 00:00: mouth [place] 00 daily. Do Medical not Crush Branch or Chew DULOXETINE 2020-0 Yes [id number] Take 1 [facility] 30 mg 7-09 capsule by [facility] of capsule 00:00: mouth once [place] 00 daily Medical Branch metFORMIN 2020-0 Yes 1000mg Take 2 [facility] ers 500 mg 7-09 tablets by ity of tablet 00:00: mouth 2 [place] 00 (two) Medical times Branch daily with meals. POTASSIUM 2020-0 Yes [id number] Take 1 [facility] CHLORIDE 10 7-09 tablet by ity of mEq CR 00:00: mouth once [place] tablet 00 daily Medical Branch pantoprazol 2020-0 Yes [id number] 40mg Take 1 [facility] e 40 mg EC 7-09 tablet by ity of tablet 00:00: mouth [place] 00 daily. Do Medical not Crush Branch or Chew DULOXETINE 2020-0 Yes [id number] Take 1 [facility] 30 mg 7-09 capsule by [facility] of capsule 00:00: mouth once [place] 00 daily Medical Branch metFORMIN 2020-0 Yes 1000mg Take 2 [facility] ers 500 mg 7-09 tablets by ity of tablet 00:00: mouth 2 (two) Medical times Branch daily with meals. POTASSIUM 2020-0 Yes [id number] Take 1 [facility] CHLORIDE 10 7-09 tablet by ity of mEq CR 00:00: mouth once [place] tablet 00 daily Medical Branch pantoprazol 2020-0 Yes [id number] 40mg Take 1 [facility] e 40 mg EC 7-09 tablet by ity of tablet 00:00: mouth [place] 00 daily. Do Medical not Crush Branch or Chew DULOXETINE 2020-0 Yes [id number] Take 1 [facility] 30 mg 7-09 capsule by [facility] of capsule 00:00: mouth once [place] 00 daily Medical Branch metFORMIN 2020-0 Yes 1000mg Take 2 [facility] ers 500 mg 7-09 tablets by ity of tablet 00:00: mouth 2 (two) Medical times Branch daily with meals. POTASSIUM 2020-0 Yes [id number] Take 1 [facility] CHLORIDE 10 7-09 tablet by ity of mEq CR 00:00: mouth once [place] tablet 00 daily Medical Branch pantoprazol 2020-0 Yes [id number] 40mg Take 1 [facility] e 40 mg EC 7-09 tablet by ity of tablet 00:00: mouth [place] 00 daily. Do Medical not Crush Branch or Chew DULOXETINE 2020-0 Yes [id number] Take 1 [facility] 30 mg 7-09 capsule by [facility] of capsule 00:00: mouth once [place] 00 daily Medical Branch metFORMIN 2020-0 Yes 1000mg Take 2 [facility] ers 500 mg 7-09 tablets by ity of tablet 00:00: mouth 2 (two) Medical times Branch daily with meals. POTASSIUM 2020-0 Yes [id number] Take 1 [facility] CHLORIDE 10 7-09 tablet by ity of mEq CR 00:00: mouth once [place] tablet 00 daily Medical Branch pantoprazol 2020-0 Yes [id number] 40mg Take 1 [facility] e 40 mg EC 7-09 tablet by ity of tablet 00:00: mouth 00 daily. Do Medical not Crush Branch or Chew DULOXETINE 2020-0 Yes [id number] Take 1 [facility] 30 mg 7-09 capsule by [facility] of capsule 00:00: mouth once [place] 00 daily Medical Branch metFORMIN 2020-0 Yes 1000mg Take 2 [facility] ers 500 mg 7-09 tablets by ity of tablet 00:00: mouth (two) Medical times Branch daily with meals. POTASSIUM 2020-0 Yes [id number] Take 1 [facility] CHLORIDE 10 7-09 tablet by ity of mEq CR 00:00: mouth once [place] tablet 00 daily Medical Branch pantoprazol 2020-0 Yes [id number] 40mg Take 1 [facility] e 40 mg EC 7-09 tablet by ity of tablet 00:00: mouth [place] 00 daily. Do Medical not Crush Branch or Chew DULOXETINE 2020-0 Yes [id number] Take 1 [facility] 30 mg 7-09 capsule by [facility] of capsule 00:00: mouth once [place] 00 daily Medical Branch metFORMIN 2020-0 Yes 1000mg Take 2 [facility] ers 500 mg 7-09 tablets by ity of tablet 00:00: mouth 2 (two) Medical times Branch daily with meals. POTASSIUM 2020-0 Yes [id number] Take 1 [facility] CHLORIDE 10 7-09 tablet by ity of mEq CR 00:00: mouth once [place] tablet 00 daily Medical Branch pantoprazol 2020-0 Yes [id number] 40mg Take 1 [facility] e 40 mg EC 7-09 tablet by ity of tablet 00:00: mouth [place] 00 daily. Do Medical not Crush Branch or Chew DULOXETINE 2020-0 Yes [id number] Take 1 [facility] 30 mg 7-09 capsule by [facility] of capsule 00:00: mouth once [place] 00 daily Medical Branch metFORMIN 2020-0 Yes 1000mg Take 2 [facility] ers 500 mg 7-09 tablets by ity of tablet 00:00: mouth 2 (two) Medical times Branch daily with meals. POTASSIUM 2020-0 Yes [id number] Take 1 [facility] CHLORIDE 10 7-09 tablet by ity of mEq CR 00:00: mouth once [place] tablet 00 daily Medical Branch pantoprazol 2020-0 Yes [id number] 40mg Take 1 [facility] e 40 mg EC 7-09 tablet by ity of tablet 00:00: mouth 00 daily. Do Medical not Crush Branch or Chew DULOXETINE 2020-0 Yes [id number] Take 1 [facility] 30 mg 7-09 capsule by [facility] of capsule 00:00: mouth once [place] 00 daily Medical Branch metFORMIN 2020-0 Yes 1000mg Take 2 [facility] ers 500 mg 7-09 tablets by ity of tablet 00:00: mouth 2 (two) Medical times Branch daily with meals. POTASSIUM 2020-0 Yes [id number] Take 1 [facility] CHLORIDE 10 7-09 tablet by ity of mEq CR 00:00: mouth once [place] tablet 00 daily Medical Branch pantoprazol 2020-0 Yes [id number] 40mg Take 1 [facility] e 40 mg EC 7-09 tablet by ity of tablet 00:00: mouth 00 daily. Do Medical not Crush Branch or Chew DULOXETINE 2020-0 Yes [id number] Take 1 [facility] 30 mg 7-09 capsule by [facility] of capsule 00:00: mouth once [place] 00 daily Medical Branch metFORMIN 2020-0 Yes 1000mg Take 2 [facility] ers 500 mg 7-09 tablets by ity of tablet 00:00: mouth 2 (two) Medical times Branch daily with meals. POTASSIUM 2020-0 Yes [id number] Take 1 [facility] CHLORIDE 10 7-09 tablet by ity of mEq CR 00:00: mouth once [place] tablet 00 daily Medical Branch DULOXETINE 2020-0 Yes [id number] Take 1 [facility] 30 mg 7-09 capsule by [facility]y of capsule 00:00: mouth once [place] 00 daily Medical Branch metFORMIN 2020-0 Yes 1000mg Take 2 [facility] ers 500 mg 7-09 tablets by ity of tablet 00:00: mouth 2 [place] (two) Medical times Branch daily with meals. DULOXETINE 2020-0 Yes [id number] Take 1 [facility] 30 mg 7-09 capsule by [facility] of capsule 00:00: mouth once [place] 00 daily Medical Branch metFORMIN 2020-0 Yes 1000mg Take 2 [facility] ers 500 mg 7-09 tablets by ity of tablet 00:00: mouth 2 [place] (two) Medical times Branch daily with meals. DULOXETINE 2020-0 Yes [id number] Take 1 [facility] 30 mg 7-09 capsule by [facility] of capsule 00:00: mouth once [place] 00 daily Medical Branch metFORMIN 2020-0 Yes 1000mg Take 2 [facility] ers 500 mg 7-09 tablets by ity of tablet 00:00: mouth 2 [place] (two) Medical times Branch daily with meals. DULOXETINE 2020-0 Yes [id number] Take 1 [facility] 30 mg 7-09 capsule by [facility] of capsule 00:00: mouth once [place] 00 daily Medical Branch metFORMIN 2020-0 Yes 1000mg Take 2 [facility] ers 500 mg 7-09 tablets by ity of tablet 00:00: mouth 2 [place] (two) Medical times Branch daily with meals. DULOXETINE 2020-0 Yes [id number] Take 1 [facility] 30 mg 7-09 capsule by [facility] of capsule 00:00: mouth once [place] 00 daily Medical Branch metFORMIN 2020-0 Yes 1000mg Take 2 [facility] ers 500 mg 7-09 tablets by ity of tablet 00:00: mouth 2 [place] (two) Medical times Branch daily with meals. DULOXETINE 2020-0 Yes [id number] Take 1 [facility] 30 mg 7-09 capsule by [facility]y of capsule 00:00: mouth once [place] 00 daily Medical Branch metFORMIN 2020-0 Yes 1000mg Take 2 [facility] ers 500 mg 7-09 tablets by ity of tablet 00:00: mouth 2 [place] (two) Medical times Branch daily with meals. DULOXETINE 2020-0 Yes [id number] Take 1 [facility] 30 mg 7-09 capsule by ity of capsule 00:00: mouth once [place] 00 daily Medical Branch metFORMIN 2020-0 Yes 1000mg Take 2 [facility] ers 500 mg 7-09 tablets by ity of tablet 00:00: mouth [place] (two) Medical times Branch daily with meals. DULOXETINE 2020-0 Yes [id number] Take 1 [facility] 30 mg 7-09 capsule by [facility]y of capsule 00:00: mouth once [place] 00 daily Medical Branch metFORMIN 2020-0 Yes 1000mg Take 2 [facility] ers 500 mg 7-09 tablets by ity of tablet 00:00: mouth 2 [place] (two) Medical times Branch daily with meals. DULOXETINE 2020-0 Yes [id number] Take 1 [facility] 30 mg 7-09 capsule by [facility]y of capsule 00:00: mouth once [place] 00 daily Medical Branch metFORMIN 2020-0 Yes 1000mg Take 2 [facility] ers 500 mg 7-09 tablets by ity of tablet 00:00: mouth [place] (two) Medical times Branch daily with meals. DULOXETINE 2020-0 Yes [id number] Take 1 [facility] 30 mg 7-09 capsule by [facility] of capsule 00:00: mouth once [place] daily Medical Branch metFORMIN 2020-0 Yes 1000mg Take 2 [facility] ers 500 mg 7-09 tablets by ity of tablet 00:00: mouth [place] ([facility]) Medical times Branch daily with meals. DULOXETINE 2020-0 Yes [id number] Take 1 [facility] 30 mg 7-09 capsule by [facility]y of capsule 00:00: mouth once [place] 00 daily Medical Branch metFORMIN 2020-0 Yes 1000mg Take 2 [facility] ers 500 mg 7-09 tablets by ity of tablet 00:00: mouth [place] (two) Medical times Branch daily with meals. DULOXETINE 2020-0 Yes [id number] Take 1 [facility] 30 mg 7-09 capsule by [facility]y of capsule 00:00: mouth once [place] 00 daily Medical Branch metFORMIN 2020-0 Yes 1000mg Take 2 [facility] ers 500 mg 7-09 tablets by ity of tablet 00:00: mouth [place] (two) Medical times Branch daily with meals. DULOXETINE 2020-0 Yes [id number] Take 1 [facility] 30 mg 7-09 capsule by [facility] of capsule 00:00: mouth once [place] 00 daily Medical Branch metFORMIN 2020-0 Yes 1000mg Take 2 [facility] ers 500 mg 7-09 tablets by ity of tablet 00:00: mouth (two) Medical times Branch daily with meals. DULOXETINE 2020-0 Yes [id number] Take 1 [facility] 30 mg 7-09 capsule [...] daily with meals. DULOXETINE 2019-0 2020- No [id number] Take 1 [facility] 30 mg 12-04 capsule by ity of capsule 00:00: 00:00 mouth once [place] 00 :00 daily Medical Branch DULOXETINE 2019-0 2020- No [id number] Take 1 [facility] 30 mg 12-04 capsule by ity of capsule 00:00: 00:00 mouth once [place] 00 :00 daily Medical Branch pantoprazol 2019-0 2020- No [id number] 40mg Take 1 [facility] e 40 mg EC 12-04 tablet by ity of tablet 00:00: 00:00 mouth [place] 00 :00 daily. Do Medical not Crush Branch or Chew POTASSIUM 2020-0 2020- No [id number] Take 1 [facility] nivers CHLORIDE 10 12-04 tablet by it y of mEq CR 00:00: 00:00 mouth once [place] tablet 00 :00 daily Medical Branch PANTOPRAZOL 2020-0 Yes [id number] Take 1 [facility] E 40 mg EC 6-08 tablet by ity of tablet 00:00: mouth once [place] 00 daily Medical Branch POTASSIUM 2020-0 Yes [id number] Take 1 [facility] CHLORIDE 10 6-08 tablet by ity of mEq CR 00:00: mouth once [place] tablet 00 daily Medical Branch PANTOPRAZOL 2020-0 Yes [id number] Take 1 [facility] E 40 mg EC 6-08 tablet by ity of tablet 00:00: mouth once [place] 00 daily Medical Branch POTASSIUM 2020-0 Yes [id number] Take 1 [facility] CHLORIDE 10 6-08 [...] 5-15 tablet by ity of tablet 20:19: [facility] 33 daily. Medical Branch GABAPENTIN 2020-0 Yes [id number] TAKE 1 [facility] 800 mg 5-05 TABLET BY ity of tablet 00:00: [facility] 00 THREE Medical TIMES Branch DAILY GABAPENTIN 2020-0 Yes [id number] TAKE 1 [facility] 800 mg 5-05 TABLET BY ity of tablet 00:00: [facility] 00 THREE Medical TIMES Branch DAILY GABAPENTIN 2020-0 Yes [id number] TAKE 1 [facility] 800 mg 5-05 TABLET BY ity of tablet 00:00: [facility] 00 THREE Medical TIMES Branch DAILY GABAPENTIN 2020-0 Yes [id number] TAKE 1 [facility] 800 mg 5-05 TABLET BY ity of tablet 00:00: [facility] 00 THREE Medical TIMES Branch DAILY GABAPENTIN 2020-0 Yes [id number] TAKE 1 [facility] 800 mg 5-05 TABLET BY ity of tablet 00:00: [facility] 00 THREE Medical TIMES Branch DAILY GABAPENTIN 2020-0 Yes [id number] TAKE 1 [facility] 800 mg 5-05 TABLET BY ity of tablet 00:00: [facility] 00 THREE Medical TIMES Branch DAILY GABAPENTIN 2020-0 Yes [id number] TAKE 1 [facility] 800 mg 5-05 TABLET BY ity of tablet 00:00: [facility] 00 THREE Medical TIMES Branch DAILY GABAPENTIN 2020-0 Yes [id number] TAKE 1 [facility] 800 mg 5-05 TABLET BY ity of tablet 00:00: [facility] 00 THREE Medical TIMES Branch DAILY GABAPENTIN 2020-0 Yes [id number] TAKE 1 [facility] 800 mg 5-05 TABLET BY ity of tablet 00:00: [facility] 00 [facility] Medical TIMES Branch DAILY GABAPENTIN 2020-0 Yes [id number] TAKE 1 [facility] 800 mg 5-05 TABLET BY ity of tablet 00:00: [facility] 00 [facility] Medical TIMES Branch DAILY GABAPENTIN 2020-0 2020- No [id number] TAKE 1 [facility] 800 mg 5-05 07-15 TABLET BY ity of tablet 00:00: 00:00 [facility] 00 :00 [facility] Medical TIMES Branch DAILY metoprolol 2020-0 [...] mg 00 on Fri Medical 08/16/19 at [place] 2100, Until Discontinu ed, Routine metoprolol 2020-0 Yes 50mg 50 mg, Unive rs tartrate 3-21 Oral, BID, ity o f (LOPRESSOR) 01:00: First dose [place] tablet 50 00 on Fri Medical mg 08/16/19 at [place] 2000, Until Discontinu ed, Routine metoprolol 2020-0 Yes [id number] 100mg Take 1 [facility] succinate 3-21 07 tablet by ity o f XL 100 mg 00:00: mouth [place] 24 hr 00 daily. Medical tablet [place] azithromyci 2020-0 Yes [id number] 250mg Take 1 [facility] n 250 mg 3-21 07 tablet by ity of tablet 00:00: mouth [place] 00 daily. Medical Take 250 Branch mg tablet once daily metoprolol 2020-0 Yes [id number] 100mg Take 1 [facility] succinate 3-21 07 tablet by ity o f XL 100 mg 00:00: mouth [place] 24 hr 00 daily. Medical tablet [place] azithromyci 2020-0 Yes [id number] 250mg Take 1 [facility] n 250 mg 3-21 07 tablet by ity of tablet 00:00: mouth [place] 00 daily. Medical Take 250 Branch mg tablet once daily metoprolol 2020-0 Yes [id number] 100mg Take 1 [facility] succinate 3-21 07 tablet by ity o f XL 100 mg 00:00: mouth [place] 24 hr 00 daily. Medical tablet [place] azithromyci 2020-0 Yes [id number] 250mg Take 1 [facility] n 250 mg 3-21 07 tablet by ity of tablet 00:00: mouth [place] 00 daily. Medical Take 250 Branch mg tablet once daily metoprolol 2020-0 Yes [id number] 100mg Take 1 [facility] succinate 3-21 07 tablet by ity o f XL 100 mg 00:00: mouth [place] 24 hr 00 daily. Medical tablet [place] azithromyci 2020-0 Yes [id number] 250mg Take 1 [facility] n 250 mg 3-21 07 tablet by ity of tablet 00:00: mouth [place] 00 daily. Medical Take 250 Branch mg tablet once daily metoprolol 2020-0 Yes [id number] 100mg Take 1 [facility] succinate 3-21 07 tablet by ity o f XL 100 mg 00:00: mouth [place] 24 hr 00 daily. Medical tablet Branch azithromyci 2020-0 Yes [id number] 250mg Take 1 [facility] n 250 mg 3-21 07 tablet by ity of tablet 00:00: mouth [place] 00 daily. Medical Take 250 Branch mg tablet once daily metoprolol 2020-0 Yes [id number] 100mg Take 1 [facility] succinate 3-21 07 tablet by ity o f XL 100 mg 00:00: mouth [place] 24 hr 00 daily. Medical tablet Branch azithromyci 2020-0 Yes [id number] 250mg Take 1 [facility] n 250 mg 3-21 07 tablet by ity of tablet 00:00: mouth [place] 00 daily. Medical Take 250 Branch mg tablet once daily metoprolol 2020-0 Yes [id number] 100mg Take 1 [facility] succinate 3-21 07 tablet by ity o f XL 100 mg 00:00: mouth [place] 24 hr 00 daily. Medical tablet Branch azithromyci 2020-0 Yes [id number] 250mg Take 1 [facility] n 250 mg 3-21 07 tablet by ity of tablet 00:00: mouth [place] 00 daily. Medical Take 250 Branch mg tablet once daily metoprolol 2020-0 Yes [id number] 100mg Take 1 [facility] succinate 3-21 07 tablet by ity o f XL 100 mg 00:00: mouth [place] 24 hr 00 daily. Medical tablet Branch azithromyci 2020-0 Yes [id number] 250mg Take 1 [facility] n 250 mg 3-21 07 tablet by ity of tablet 00:00: mouth [place] 00 daily. Medical Take 250 Branch mg tablet once daily metoprolol 2020-0 Yes [id number] 100mg Take 1 [facility] succinate 3-21 07 tablet by ity o f XL 100 mg 00:00: mouth [place] 24 hr 00 daily. Medical tablet Branch azithromyci 2020-0 Yes [id number] 250mg Take 1 [facility] n 250 mg 3-21 07 tablet by ity of tablet 00:00: mouth [place] 00 daily. Medical Take 250 Branch mg tablet once daily metoprolol 2020-0 Yes [id number] 100mg Take 1 [facility] succinate 3-21 07 tablet by ity o f XL 100 mg 00:00: mouth [place] 24 hr 00 daily. Medical tablet Branch azithromyci 2020-0 Yes [id number] 250mg Take 1 [facility] n 250 mg 3-21 07 tablet by ity of tablet 00:00: mouth [place] 00 daily. Medical Take 250 Branch mg tablet once daily metoprolol 2020-0 Yes [id number] 100mg Take 1 [facility] succinate 3-21 07 tablet by ity o f XL 100 mg 00:00: mouth [place] 24 hr 00 daily. Medical tablet Branch azithromyci 2020-0 Yes [id number] 250mg Take 1 [facility] n 250 mg 3-21 07 tablet by ity of tablet 00:00: mouth [place] 00 daily. Medical Take 250 Branch mg tablet once daily metoprolol 2020-0 Yes [id number] 100mg Take 1 [facility] succinate 3-21 07 tablet by ity o f XL 100 mg 00:00: mouth [place] 24 hr 00 daily. Medical tablet Branch azithromyci 2020-0 Yes [id number] 250mg Take 1 [facility] 250 mg 3-21 07 tablet by [facility] of tablet 00:00: mouth [place] 00 daily. Medical Take 250 Branch mg tablet once daily metoprolol 2020-0 Yes [id number] 100mg Take 1 [facility] succinate 3-21 07 tablet by ity o f XL 100 mg 00:00: mouth [place] 24 hr 00 daily. Medical tablet Branch azithromyci 2020-0 Yes [id number] 250mg Take 1 [facility] n 250 mg 3-21 07 tablet by [facility] of tablet 00:00: mouth [place] 00 daily. Medical Take 250 Branch mg tablet once daily metoprolol 2020-0 Yes [id number] 100mg Take 1 [facility] succinate 3-21 07 tablet by ity o f XL 100 mg 00:00: mouth [place] 24 hr 00 daily. Medical tablet Branch azithromyci 2020-0 Yes [id number] 250mg Take 1 [facility] n 250 mg 3-21 07 tablet by [facility] of tablet 00:00: mouth [place] 00 daily. Medical Take 250 Branch mg tablet once daily metoprolol 2020-0 Yes [id number] 100mg Take 1 [facility] succinate 3-21 tablet by ity o f XL 100 mg 00:00: mouth [place] 24 hr 00 daily. Medical tablet Branch azithromyci 2020-0 Yes [id number] 250mg Take 1 [facility] n 250 mg 3-21 tablet by [facility] of tablet 00:00: mouth [place] 00 daily. Medical Take 250 Branch mg tablet once daily metoprolol 2020-0 Yes [id number] 100mg Take 1 [facility] succinate 3-21 tablet by ity o f XL 100 mg 00:00: mouth [place] 24 hr 00 daily. Medical tablet Branch azithromyci 2020-0 Yes [id number] 250mg Take 1 [facility] n 250 mg 3-21 tablet by [facility] of tablet 00:00: mouth [place] 00 daily. Medical Take 250 Branch mg tablet once daily metoprolol 2020-0 Yes [id number] 100mg Take 1 [facility] succinate 3-21 tablet by ity o f XL 100 mg 00:00: mouth [place] 24 hr 00 daily. Medical tablet Branch azithromyci 2020-0 Yes [id number] 250mg Take 1 [facility] n 250 mg 3-21 tablet by [facility] of tablet 00:00: mouth [place] 00 daily. Medical Take 250 Branch mg tablet once daily metoprolol 2020-0 Yes [id number] 100mg Take 1 [facility] succinate 3-21 tablet by ity o f XL 100 mg 00:00: mouth [place] 24 hr 00 daily. Medical tablet Branch metoprolol 2020-0 Yes [id number] 100mg Take 1 [facility] succinate 3-21 tablet by ity o f XL 100 mg 00:00: mouth [place] 24 hr 00 daily. Medical tablet Branch metoprolol 2020-0 Yes [id number] 100mg Take 1 [facility] succinate 3-21 tablet by ity o f XL 100 mg 00:00: mouth [place] 24 hr 00 daily. Medical tablet Branch metoprolol 2020-0 Yes [id number] 100mg Take 1 [facility] succinate 3-21 tablet by ity o f XL 100 mg 00:00: mouth [place] 24 hr 00 daily. Medical tablet Branch metoprolol 2020-0 Yes [id number] 100mg Take 1 [facility] succinate 3-21 tablet by ity o f XL 100 mg 00:00: mouth [place] 24 hr 00 daily. Medical tablet Branch metoprolol 2020-0 Yes [id number] 100mg Take 1 [facility] succinate 3-21 tablet by ity o f XL 100 mg 00:00: mouth [place] 24 hr 00 daily. Medical tablet Branch metoprolol 2020-0 Yes [id number] 100mg Take 1 [facility] succinate 3-21 tablet by ity o f XL 100 mg 00:00: mouth [place] 24 hr 00 daily. Medical tablet Branch metoprolol 2020-0 Yes [id number] 100mg Take 1 [facility] succinate 3-21 tablet by ity o f XL 100 mg 00:00: mouth [place] 24 hr 00 daily. Medical tablet Branch metoprolol 2020-0 Yes [id number] 100mg Take 1 [facility] succinate 3-21 tablet by ity o f XL 100 mg 00:00: mouth [place] 24 hr 00 daily. Medical tablet Branch metoprolol 2020-0 Yes [id number] 100mg Take 1 [facility] succinate 3-21 tablet by ity o f XL 100 mg 00:00: mouth [place] 24 hr 00 daily. Medical tablet Branch metoprolol 2020-0 Yes [id number] 100mg Take 1 [facility] succinate 3-21 tablet by ity o f XL 100 mg 00:00: mouth [place] 24 hr 00 daily. Medical tablet Branch metoprolol 2020-0 Yes [id number] 100mg Take 1 [facility] succinate 3-21 tablet by ity o f XL 100 mg 00:00: mouth [place] 24 hr 00 daily. Medical tablet Branch metoprolol 2020-0 Yes [id number] 100mg Take 1 [facility] succinate 3-21 tablet by ity o f XL 100 mg 00:00: mouth [place] 24 hr 00 daily. Medical tablet Branch metoprolol 2020-0 Yes [id number] 100mg Take 1 [facility] succinate 3-21 tablet by ity o f XL 100 mg 00:00: mouth [place] 24 hr 00 daily. Medical tablet Branch metoprolol 2020-0 Yes [id number] 100mg Take 1 [facility] succinate 3-21 tablet by ity o f XL 100 mg 00:00: mouth [place] 24 hr 00 daily. Medical tablet Branch metoprolol 2020-0 Yes [id number] 100mg Take 1 [facility] succinate 3-21 tablet by ity o f XL 100 mg 00:00: mouth [place] 24 hr 00 daily. Medical tablet Branch metoprolol 2020-0 Yes [id number] 100mg Take 1 [facility] succinate 3-21 tablet by ity o f XL 100 mg 00:00: mouth [place] 24 hr 00 daily. Medical tablet Branch metoprolol 2020-0 Yes [id number] 100mg Take 1 [facility] succinate 3-21 tablet by ity o f XL 100 mg 00:00: mouth [place] 24 hr 00 daily. Medical tablet Branch metoprolol 2020-0 Yes [id number] 100mg Take 1 [facility] succinate 3-21 tablet by ity o f XL 100 mg 00:00: mouth [place] 24 hr 00 daily. Medical tablet Branch metoprolol 2020-0 Yes [id number] 100mg Take 1 [facility] succinate 3-21 tablet by ity o f XL 100 mg 00:00: mouth [place] 24 hr 00 daily. Medical tablet Branch metoprolol 2020-0 Yes [id number] 100mg Take 1 [facility] succinate 3-21 tablet by ity o f XL 100 mg 00:00: mouth [place] 24 hr 00 daily. Medical tablet Branch metoprolol 2020-0 Yes [id number] 100mg Take 1 [facility] succinate 3-21 tablet by ity o f XL 100 mg 00:00: mouth [place] 24 hr 00 daily. Medical tablet Branch metoprolol 2020-0 Yes [id number] 100mg Take 1 [facility] succinate 3-21 tablet by ity o f XL 100 mg 00:00: mouth [place] 24 hr 00 daily. Medical tablet Branch metoprolol 2020-0 Yes [id number] 100mg Take 1 [facility] succinate 3-21 tablet by ity o f XL 100 mg 00:00: mouth [place] 24 hr 00 daily. Medical tablet Branch metoprolol 2020-0 Yes [id number] 100mg Take 1 [facility] succinate 3-21 tablet by ity o f XL 100 mg 00:00: mouth [place] 24 hr 00 daily. Medical tablet Branch metoprolol 2020-0 Yes [id number] 100mg Take 1 [facility] succinate 3-21 07 tablet by ity o f XL 100 mg 00:00: mouth [place] 24 hr 00 daily. Medical tablet Branch azithromyci 2020-0 Yes [id number] 250mg Take 1 [facility] n 250 mg 3-21 07 tablet by ity of tablet 00:00: mouth [place] 00 daily. Medical Take 250 Branch mg tablet once daily metoprolol 2020-0 Yes [id number] 100mg Take 1 [facility] succinate 3-21 07 tablet by ity o f XL 100 mg 00:00: mouth [place] 24 hr 00 daily. Medical tablet Branch azithromyci 2019-0 Yes [id number] 250mg Take 1 [facility] n 250 mg 3-21 07 tablet by ity of tablet 00:00: mouth [place] 00 daily. Medical Take 250 Branch mg tablet once daily metoprolol 2020-0 2020- No [id number] 100mg Take 1 [facility] succinate 3-21 01-11 tablet by ity of XL 100 mg 00:00: 00:00 mouth [place] 24 hr 00 :00 daily. Medical tablet Branch azithromyci 2020-0 2019- No [id number] 250mg Take 1 [facility] n 250 mg 3-21 08-14 tablet by ity o f tablet 00:00: 00:00 mouth [place] 00 :00 daily. Medical Take 250 Branch mg tablet once daily azithromyci 2019-0 2020- No [id number] 250mg Take 1 [facility] n 250 mg [...] of tablet 16:51: mouth [place] 31 daily. [facility] aspirin 81 2020-0 Yes 81mg Take 1 [facility] mg chewable 3-20 tablet by ity of tablet 16:51: mouth [place] 31 daily. [facility] aspirin 81 2020-0 Yes 81mg Take 1 [facility] rs mg chewable 3-20 tablet by ity of tablet 16:51: mouth [place] 31 daily. [facility] aspirin 81 2020-0 Yes 81mg Take 1 [facility] rs mg chewable 3-20 tablet by ity of tablet 16:51: mouth [place] 31 daily. [facility] aspirin 81 2020-0 Yes 81mg Take 1 [facility] rs mg chewable 3-20 tablet by ity of tablet 16:51: mouth [place] 31 daily. [facility] aspirin 81 2020-0 Yes 81mg Take 1 [facility] rs mg chewable 3-20 tablet by ity of tablet 16:51: mouth [place] 31 daily. [facility] aspirin 81 2020-0 Yes 81mg Take 1 [facility] rs mg chewable 3-20 tablet by ity of tablet 16:51: mouth [place] 31 daily. [facility] aspirin 81 2020-0 Yes 81mg Take 1 [facility] rs mg chewable 3-20 tablet by ity of tablet 16:51: mouth [place] 31 daily. [facility] aspirin 81 2020-0 Yes 81mg Take 1 [facility] rs mg chewable 3-20 tablet by ity of tablet 16:51: mouth [place] 31 daily. [facility] aspirin 2020- No 81mg Take 81 mg Uni vers (ASPIRIN 08-1520 by mouth ity of LOW DOSE) 16:51: 00:00 daily. [place] 81 mg EC 31 :00 Medical [facility] LORazepam 2019- No 1mg 1 mg, Univer s (ATIVAN) 08-15 Oral, ity of tablet 1 mg 00:30: 23:58 ONCE, 1 [place] 00 :00 dose, [facility] 08/15/19 at [place] 1930, Routine clopidogreL Yes [id number] 75mg Take 1 [facility] (PLAVIX) 75 3-20 tablet by ity of mg tablet 00:00: mouth [place] 00 daily. [facility] insulin NPH Yes [id number] Inject 84 [facility] and regular 3-20 units AM, ity of human 70-30 00:00: 84 units [place] (NOVOLIN 00 PM Medical 70/30 U-100 [place] INSULIN) 100 unit/mL (70-30) injection atorvastati Yes [id number] 80mg Take 1 [facility] n 80 mg 3-20 07 tablet by ity of tablet 00:00: mouth at [place] 00 bedtime. [facility] clopidogreL 2019-0 Yes [id number] 75mg Take 1 [facility] (PLAVIX) 75 3-20 tablet by ity of mg tablet 00:00: mouth [place] 00 daily. [facility] insulin NPH Yes [id number] Inject 84 [facility] and regular 3-20 units AM, ity of human 70-30 00:00: 84 units [place] (NOVOLIN 00 PM Medical 70/30 U-100 [place] INSULIN) 100 unit/mL (70-30) injection atorvastati 2019- Yes [id number] 80mg Take 1 [facility] n 80 mg 3-20 07 tablet by ity of tablet 00:00: mouth at [place] 00 bedtime. [facility] clopidogreL 2019-0 Yes [id number] 75mg Take 1 [facility] (PLAVIX) 75 3-20 tablet by ity of mg tablet 00:00: mouth [place] 00 daily. [facility] insulin NPH Yes [id number] Inject 84 [facility] and regular 3-20 units AM, ity of human 70-30 00:00: 84 units [place] (NOVOLIN 00 PM Medical 70/30 U-100 Branch INSULIN) 100 unit/mL (70-30) injection atorvastati 2020-0 Yes [id number] 80mg Take 1 [facility] n 80 mg 3-20 07 tablet by ity of tablet 00:00: mouth at 00 bedtime. Medical Branch clopidogreL 2020-0 Yes [id number] 75mg Take 1 [facility] (PLAVIX) 75 3-20 tablet by ity of mg tablet 00:00: mouth daily. Medical Branch insulin NPH 2020-0 Yes [id number] Inject 84 [facility] and regular 3-20 units AM, ity of human 7030 00:00: 84 units [place] (NOVOLIN 00 PM Medical 70/30 U-100 Branch INSULIN) 100 unit/mL (-30) injection atorvastati 2019-0 Yes [id number] 80mg Take 1 [facility] n 80 mg 3-20 07 tablet by ity of tablet 00:00: mouth at bedtime. Medical Branch clopidogreL 2020-0 Yes [id number] 75mg Take 1 [facility] (PLAVIX) 75 3-20 tablet by ity of mg tablet 00:00: mouth daily. Medical Branch insulin NPH 2019-0 Yes [id number] Inject 84 [facility] and regular 3-20 units AM, ity of human 00:00: 84 units [place] (NOVOLIN 00 PM Medical 70/30 U-100 Branch INSULIN) 100 unit/mL (30) injection atorvastati 2019-0 Yes [id number] 80mg Take 1 [facility] n 80 mg 3-20 07 tablet by ity of tablet 00:00: mouth at bedtime. Medical Branch clopidogreL 2020-0 Yes [id number] 75mg Take 1 [facility] (PLAVIX) 75 3-20 tablet by ity of mg tablet 00:00: mouth daily. Medical Branch insulin NPH 2020-0 Yes [id number] Inject 84 [facility] and regular 3-20 units AM, ity of human 30 00:00: 84 units [place] (NOVOLIN 00 PM Medical 70/30 U-100 Branch INSULIN) 100 unit/mL (70-30) injection atorvastati 2020-0 Yes [id number] 80mg Take 1 [facility] n 80 mg 3-20 07 tablet by ity of tablet 00:00: mouth at [place] 00 bedtime. Medical Branch clopidogreL 2020-0 Yes [id number] 75mg Take 1 [facility] (PLAVIX) 75 3-20 tablet by ity of mg tablet 00:00: mouth [place] 00 daily. Medical Branch insulin NPH 2020-0 Yes [id number] Inject 84 [facility] and regular 3-20 units AM, ity of human 70-30 00:00: 84 units [place] (NOVOLIN 00 PM Medical 70/30 U-100 Branch INSULIN) 100 unit/mL (70-30) injection atorvastati 2020-0 Yes [id number] 80mg Take 1 [facility] n 80 mg 3-20 07 tablet by ity of tablet 00:00: mouth at [place] 00 bedtime. Medical Branch clopidogreL 2020-0 Yes [id number] 75mg Take 1 [facility] (PLAVIX) 75 3-20 tablet by ity of mg tablet 00:00: mouth [place] 00 daily. Medical Branch insulin NPH 2019-0 Yes [id number] Inject 84 [facility] and regular 3-20 units AM, ity of human 7030 00:00: 84 units [place] (NOVOLIN 00 PM Medical 70/30 U-100 Branch INSULIN) 100 unit/mL (70-30) injection atorvastati 2019-0 Yes [id number] 80mg Take 1 [facility] n 80 mg 3-20 07 tablet by ity of tablet 00:00: mouth at [place] 00 bedtime. Medical Branch clopidogreL 2020-0 Yes [id number] 75mg Take 1 [facility] (PLAVIX) 75 3-20 tablet by ity of mg tablet 00:00: mouth 00 daily. Medical Branch insulin NPH 2019-0 Yes [id number] Inject 84 [facility] and regular 3-20 units AM, ity of human 7030 00:00: 84 units [place] (NOVOLIN 00 PM Medical 70/30 U-100 Branch INSULIN) 100 unit/mL (70-30) injection atorvastati 2020-0 Yes [id number] 80mg Take 1 [facility] n 80 mg 3-20 07 tablet by ity of tablet 00:00: mouth at [place] 00 bedtime. Medical Branch clopidogreL 2020-0 Yes [id number] 75mg Take 1 [facility] (PLAVIX) 75 3-20 tablet by ity of mg tablet 00:00: mouth [place] 00 daily. Medical Branch insulin NPH 2019-0 Yes [id number] Inject 84 [facility] and regular 3-20 units AM, ity of human 7030 00:00: 84 units [place] (NOVOLIN 00 PM Medical 70/30 U-100 Branch INSULIN) 100 unit/mL (70-30) injection atorvastati 2020-0 Yes [id number] 80mg Take 1 [facility] n 80 mg 3-20 07 tablet by ity of tablet 00:00: mouth at [place] 00 bedtime. Medical Branch clopidogreL 2020-0 Yes [id number] 75mg Take 1 [facility] (PLAVIX) 75 3-20 tablet by ity of mg tablet 00:00: mouth [place] 00 daily. Medical Branch insulin NPH 2020-0 Yes [id number] Inject 84 [facility] and regular 3-20 units AM, ity of human 70-30 00:00: 84 units [place] (NOVOLIN 00 PM Medical 70/30 U-100 Branch INSULIN) 100 unit/mL (70-30) injection atorvastati 2020-0 Yes [id number] 80mg Take 1 [facility] n 80 mg 3-20 07 tablet by ity of tablet 00:00: mouth at [place] 00 bedtime. Medical Branch clopidogreL 2020-0 Yes [id number] 75mg Take 1 [facility] (PLAVIX) 75 3-20 tablet by ity of mg tablet 00:00: mouth [place] 00 daily. Medical Branch insulin NPH 2019-0 Yes [id number] Inject 84 [facility] and regular 3-20 units AM, ity of human 7030 00:00: 84 units [place] (NOVOLIN 00 PM Medical 70/30 U-100 Branch INSULIN) 100 unit/mL (70-30) injection atorvastati 2020-0 Yes [id number] 80mg Take 1 [facility] n 80 mg 3-20 07 tablet by ity of tablet 00:00: mouth at [place] 00 bedtime. Medical Branch clopidogreL 2020-0 Yes [id number] 75mg Take 1 [facility] (PLAVIX) 75 3-20 tablet by ity of mg tablet 00:00: mouth [place] 00 daily. Medical Branch insulin NPH 2020-0 Yes [id number] Inject 84 [facility] and regular 3-20 units AM, ity of human 70-30 00:00: 84 units [place] (NOVOLIN 00 PM Medical 70/30 U-100 Branch INSULIN) 100 unit/mL (70-30) injection atorvastati 2020-0 Yes [id number] 80mg Take 1 [facility] n 80 mg 3-20 07 tablet by ity of tablet 00:00: mouth at [place] 00 bedtime. Medical Branch clopidogreL 2020-0 Yes [id number] 75mg Take 1 [facility] (PLAVIX) 75 3-20 tablet by ity of mg tablet 00:00: mouth [place] 00 daily. Medical Branch insulin NPH 2019-0 Yes [id number] Inject 84 [facility] and regular 3-20 units AM, ity of human 7030 00:00: 84 units [place] (NOVOLIN 00 PM Medical 70/30 U-100 Branch INSULIN) 100 unit/mL (70-30) injection atorvastati 2020-0 Yes [id number] 80mg Take 1 [facility] n 80 mg 3-20 07 tablet by ity of tablet 00:00: mouth at bedtime. [facility] clopidogreL 2020-0 Yes [id number] 75mg Take 1 [facility] (PLAVIX) 75 3-20 tablet by ity of mg tablet 00:00: mouth 00 daily. [facility] insulin NPH 2019-0 Yes [id number] Inject 84 [facility] and regular 3-20 units AM, ity of human 00:00: 84 units [place] (NOVOLIN 00 PM Medical 70/30 U-100 Branch INSULIN) 100 unit/mL (70-30) injection atorvastati 2019-0 Yes [id number] 80mg Take 1 [facility] n 80 mg 3-20 tablet by ity of tablet 00:00: mouth at bedtime. [facility] clopidogreL 2020-0 Yes [id number] 75mg Take 1 [facility] (PLAVIX) 75 3-20 tablet by ity of mg tablet 00:00: mouth daily. [facility] insulin NPH 2019-0 Yes [id number] Inject 84 [facility] and regular 3-20 units AM, ity of human 00:00: 84 units [place] (NOVOLIN 00 PM Medical 70/30 U-100 Branch INSULIN) 100 unit/mL (70-30) injection atorvastati 2020-0 Yes [id number] 80mg Take 1 [facility] n 80 mg 3-20 tablet by ity of tablet 00:00: mouth at bedtime. [facility] clopidogreL 2020-0 Yes [id number] 75mg Take 1 [facility] (PLAVIX) 75 3-20 tablet by ity of mg tablet 00:00: mouth 00 daily. [facility] insulin NPH 2019-0 Yes [id number] Inject 84 [facility] and regular 3-20 units AM, ity of human 70-30 00:00: 84 units [place] (NOVOLIN 00 PM Medical 70/30 U-100 Branch INSULIN) 100 unit/mL (70-30) injection atorvastati 2020-0 Yes [id number] 80mg Take 1 [facility] n 80 mg 3-20 tablet by ity of tablet 00:00: mouth at [place] 00 bedtime. Medical Branch clopidogreL 2020-0 Yes [id number] 75mg Take 1 [facility] (PLAVIX) 75 3-20 tablet by ity of mg tablet 00:00: mouth [place] 00 daily. Medical Branch insulin NPH 2020-0 Yes [id number] Inject 84 [facility] and regular 3-20 units AM, ity of human 7030 00:00: 84 units [place] (NOVOLIN 00 PM Medical 70/30 U-100 Branch INSULIN) 100 unit/mL (70-30) injection atorvastati 2020-0 Yes [id number] 80mg Take 1 [facility] n 80 mg 3-20 tablet by ity of tablet 00:00: mouth at bedtime. Medical Branch clopidogreL 2019-0 Yes [id number] 75mg Take 1 [facility] (PLAVIX) 75 3-20 tablet by ity of mg tablet 00:00: mouth 00 daily. Medical Branch insulin NPH 2019-0 Yes [id number] Inject 84 [facility] and regular 3-20 units AM, ity of human 00:00: 84 units [place] (NOVOLIN 00 PM Medical 70/30 U-100 Branch INSULIN) 100 unit/mL (70-30) injection atorvastati 2019-0 Yes [id number] 80mg Take 1 [facility] n 80 mg 3-20 tablet by ity of tablet 00:00: mouth at [place] 00 bedtime. Medical Branch clopidogreL 2020-0 Yes [id number] 75mg Take 1 [facility] (PLAVIX) 75 3-20 tablet by ity of mg tablet 00:00: mouth [place] 00 daily. Medical Branch insulin NPH 2020-0 Yes [id number] Inject 84 [facility] and regular 3-20 units AM, ity of human 7030 00:00: 84 units [place] (NOVOLIN 00 PM Medical 70/30 U-100 Branch INSULIN) 100 unit/mL (70-30) injection atorvastati 2020-0 Yes [id number] 80mg Take 1 [facility] n 80 mg 3-20 tablet by ity of tablet 00:00: mouth at [place] 00 bedtime. Medical Branch clopidogreL 2020-0 Yes [id number] 75mg Take 1 [facility] (PLAVIX) 75 3-20 tablet by ity of mg tablet 00:00: mouth [place] 00 daily. Medical Branch insulin NPH 2020-0 Yes [id number] Inject 84 [facility] and regular 3-20 units AM, ity of human 70-30 00:00: 84 units [place] (NOVOLIN 00 PM Medical 70/30 U-100 Branch INSULIN) 100 unit/mL (70-30) injection atorvastati 2020-0 Yes [id number] 80mg Take 1 [facility] n 80 mg 3-20 tablet by ity of tablet 00:00: mouth at [place] 00 bedtime. Medical Branch clopidogreL 2020-0 Yes [id number] 75mg Take 1 [facility] (PLAVIX) 75 3-20 tablet by ity of mg tablet 00:00: mouth 00 daily. Medical Branch insulin NPH 2019-0 Yes [id number] Inject 84 [facility] and regular 3-20 units AM, ity of human 7030 00:00: 84 units [place] (NOVOLIN 00 PM Medical 70/30 U-100 Branch INSULIN) 100 unit/mL (70-30) injection atorvastati 2020-0 Yes [id number] 80mg Take 1 [facility] n 80 mg 3-20 tablet by ity of tablet 00:00: mouth at [place] 00 bedtime. Medical Branch clopidogreL 2020-0 Yes [id number] 75mg Take 1 [facility] (PLAVIX) 75 3-20 tablet by ity of mg tablet 00:00: mouth daily. Medical Branch insulin NPH 2020-0 Yes [id number] Inject 84 [facility] and regular 3-20 units AM, ity of human 7030 00:00: 84 units [place] (NOVOLIN 00 PM Medical 70/30 U-100 Branch INSULIN) 100 unit/mL (70-30) injection atorvastati 2020-0 Yes [id number] 80mg Take 1 [facility] n 80 mg 3-20 tablet by ity of tablet 00:00: mouth at [place] 00 bedtime. [facility] clopidogreL 2020-0 Yes [id number] 75mg Take 1 [facility] (PLAVIX) 75 3-20 tablet by ity of mg tablet 00:00: mouth [place] 00 daily. Medical Branch insulin NPH 2020-0 Yes [id number] Inject 84 [facility] and regular 3-20 units AM, ity of human 7030 00:00: 84 units [place] (NOVOLIN 00 PM Medical 70/30 U-100 Branch INSULIN) 100 unit/mL (70-30) injection atorvastati 2020-0 Yes [id number] 80mg Take 1 [facility] n 80 mg 3-20 tablet by ity of tablet 00:00: mouth at [place] 00 bedtime. Medical Branch clopidogreL 2020-0 Yes [id number] 75mg Take 1 [facility] (PLAVIX) 75 3-20 tablet by ity of mg tablet 00:00: mouth [place] 00 daily. Medical Branch insulin NPH 2020-0 Yes [id number] Inject 84 [facility] and regular 3-20 units AM, ity of human 7030 00:00: 84 units [place] (NOVOLIN 00 PM Medical 70/30 U-100 Branch INSULIN) 100 unit/mL (70-30) injection atorvastati 2020-0 Yes [id number] 80mg Take 1 [facility] n 80 mg 3-20 tablet by ity of tablet 00:00: mouth at [place] 00 bedtime. Medical Branch clopidogreL 2020-0 Yes [id number] 75mg Take 1 [facility] (PLAVIX) 75 3-20 tablet by ity of mg tablet 00:00: mouth [place] 00 daily. Medical Branch insulin NPH 2019-0 Yes [id number] Inject 84 [facility] and regular 3-20 units AM, ity of human 00:00: 84 units [place] (NOVOLIN 00 PM Medical 70/30 U-100 Branch INSULIN) 100 unit/mL (70-30) injection atorvastati 2020-0 Yes [id number] 80mg Take 1 [facility] n 80 mg 3-20 tablet by ity of tablet 00:00: mouth at [place] 00 bedtime. Medical Branch clopidogreL 2020-0 Yes [id number] 75mg Take 1 [facility] (PLAVIX) 75 3-20 tablet by ity of mg tablet 00:00: mouth [place] 00 daily. Medical Branch insulin NPH 2020-0 Yes [id number] Inject 84 [facility] and regular 3-20 units AM, ity of human 7030 00:00: 84 units [place] (NOVOLIN 00 PM Medical 70/30 U-100 Branch INSULIN) 100 unit/mL (70-30) injection atorvastati 2020-0 Yes [id number] 80mg Take 1 [facility] n 80 mg 3-20 tablet by ity of tablet 00:00: mouth at [place] 00 bedtime. Medical Branch clopidogreL 2020-0 Yes [id number] 75mg Take 1 [facility] (PLAVIX) 75 3-20 tablet by ity of mg tablet 00:00: mouth [place] 00 daily. Medical Branch insulin NPH 2020-0 Yes [id number] Inject 84 [facility] and regular 3-20 units AM, ity of human 70-30 00:00: 84 units [place] (NOVOLIN 00 PM Medical 70/30 U-100 Branch INSULIN) 100 unit/mL (70-30) injection atorvastati 2020-0 Yes [id number] 80mg Take 1 [facility] n 80 mg 3-20 tablet by ity of tablet 00:00: mouth at [place] 00 bedtime. Medical Branch clopidogreL 2020-0 Yes [id number] 75mg Take 1 [facility] (PLAVIX) 75 3-20 tablet by ity of mg tablet 00:00: mouth 00 daily. Medical Branch insulin NPH 2019-0 Yes [id number] Inject 84 [facility] and regular 3-20 units AM, ity of human 7030 00:00: 84 units [place] (NOVOLIN 00 PM Medical 70/30 U-100 Branch INSULIN) 100 unit/mL (70-30) injection atorvastati 2020-0 Yes [id number] 80mg Take 1 [facility] n 80 mg 3-20 tablet by ity of tablet 00:00: mouth at [place] 00 bedtime. Medical Branch clopidogreL 2020-0 Yes [id number] 75mg Take 1 [facility] (PLAVIX) 75 3-20 tablet by ity of mg tablet 00:00: mouth daily. Medical Branch insulin NPH 2020-0 Yes [id number] Inject 84 [facility] and regular 3-20 units AM, ity of human 7030 00:00: 84 units [place] (NOVOLIN 00 PM Medical 70/30 U-100 Branch INSULIN) 100 unit/mL (70-30) injection atorvastati 2020-0 Yes [id number] 80mg Take 1 [facility] n 80 mg 3-20 tablet by ity of tablet 00:00: mouth at [place] 00 bedtime. Medical Branch clopidogreL 2020-0 Yes [id number] 75mg Take 1 [facility] (PLAVIX) 75 3-20 tablet by ity of mg tablet 00:00: mouth [place] 00 daily. Medical Branch insulin NPH 2020-0 Yes [id number] Inject 84 [facility] and regular 3-20 units AM, ity of human 70-30 00:00: 84 units [place] (NOVOLIN 00 PM Medical 70/30 U-100 Branch INSULIN) 100 unit/mL (70-30) injection atorvastati 2020-0 Yes [id number] 80mg Take 1 [facility] n 80 mg 3-20 tablet by ity of tablet 00:00: mouth at [place] 00 bedtime. Medical Branch clopidogreL 2020-0 Yes [id number] 75mg Take 1 [facility] (PLAVIX) 75 3-20 tablet by ity of mg tablet 00:00: mouth [place] 00 daily. Medical Branch insulin NPH 2019-0 Yes [id number] Inject 84 [facility] and regular 3-20 units AM, ity of human 00:00: 84 units [place] (NOVOLIN 00 PM Medical 70/30 U-100 Branch INSULIN) 100 unit/mL (70-30) injection atorvastati 2019-0 Yes [id number] 80mg Take 1 [facility] n 80 mg 3-20 tablet by ity of tablet 00:00: mouth at [place] 00 bedtime. Medical Branch clopidogreL 2020-0 Yes [id number] 75mg Take 1 [facility] (PLAVIX) 75 3-20 tablet by ity of mg tablet 00:00: mouth 00 daily. Medical Branch insulin NPH 2019-0 Yes [id number] Inject 84 [facility] and regular 3-20 units AM, ity of human 00:00: 84 units [place] (NOVOLIN 00 PM Medical 70/30 U-100 Branch INSULIN) 100 unit/mL (70-30) injection atorvastati 2020-0 Yes [id number] 80mg Take 1 [facility] n 80 mg 3-20 tablet by ity of tablet 00:00: mouth at [place] 00 bedtime. [facility] clopidogreL 2020-0 Yes [id number] 75mg Take 1 [facility] (PLAVIX) 75 3-20 tablet by ity of mg tablet 00:00: mouth [place] 00 daily. Medical Branch insulin NPH 2020-0 Yes [id number] Inject 84 [facility] and regular 3-20 units AM, ity of human 00:00: 84 units [place] (NOVOLIN 00 PM Medical 70/30 U-100 Branch INSULIN) 100 unit/mL (70-30) injection atorvastati 2020-0 Yes [id number] 80mg Take 1 [facility] n 80 mg 3-20 tablet by ity of tablet 00:00: mouth at [place] 00 bedtime. [facility] clopidogreL 2020-0 Yes [id number] 75mg Take 1 [facility] (PLAVIX) 75 3-20 tablet by ity of mg tablet 00:00: mouth [place] 00 daily. Medical Branch insulin NPH 2020-0 Yes [id number] Inject 84 [facility] and regular 3-20 units AM, ity of human 70-30 00:00: 84 units [place] (NOVOLIN 00 PM Medical 70/30 U-100 Branch INSULIN) 100 unit/mL (70-30) injection atorvastati 2020-0 Yes [id number] 80mg Take 1 [facility] n 80 mg 3-20 tablet by ity of tablet 00:00: mouth at [place] 00 bedtime. [facility] clopidogreL 2020-0 Yes [id number] 75mg Take 1 [facility] (PLAVIX) 75 3-20 tablet by ity of mg tablet 00:00: mouth 00 daily. Medical Branch insulin NPH 2019-0 Yes [id number] Inject 84 [facility] and regular 3-20 units AM, ity of human 7030 00:00: 84 units [place] (NOVOLIN 00 PM Medical 70/30 U-100 Branch INSULIN) 100 unit/mL (70-30) injection atorvastati 2020-0 Yes [id number] 80mg Take 1 [facility] n 80 mg 3-20 tablet by ity of tablet 00:00: mouth at [place] 00 bedtime. [facility] clopidogreL 2020-0 Yes [id number] 75mg Take 1 [facility] (PLAVIX) 75 3-20 tablet by ity of mg tablet 00:00: mouth daily. Medical Branch insulin NPH 2020-0 Yes [id number] Inject 84 [facility] and regular 3-20 units AM, ity of human 7030 00:00: 84 units [place] (NOVOLIN 00 PM Medical 70/30 U-100 Branch INSULIN) 100 unit/mL (70-30) injection atorvastati 2020-0 Yes [id number] 80mg Take 1 [facility] n 80 mg 3-20 tablet by ity of tablet 00:00: mouth at [place] 00 bedtime. [facility] clopidogreL 2020-0 Yes [id number] 75mg Take 1 [facility] (PLAVIX) 75 3-20 tablet by ity of mg tablet 00:00: mouth [place] 00 daily. Medical Branch insulin NPH 2020-0 Yes [id number] Inject 84 [facility] and regular 3-20 units AM, ity of human 70-30 00:00: 84 units [place] (NOVOLIN 00 PM Medical 70/30 U-100 Branch INSULIN) 100 unit/mL (70-30) injection atorvastati 2020-0 Yes [id number] 80mg Take 1 [facility] n 80 mg 3-20 tablet by ity of tablet 00:00: mouth at [place] 00 bedtime. [facility] clopidogreL 2020-0 Yes [id number] 75mg Take 1 [facility] (PLAVIX) 75 3-20 tablet by ity of mg tablet 00:00: mouth [place] 00 daily. Medical Branch insulin NPH 2019-0 Yes [id number] Inject 84 [facility] and regular 3-20 units AM, ity of human 70 00:00: 84 units [place] (NOVOLIN 00 PM Medical 70/30 U-100 Branch INSULIN) 100 unit/mL (70-30) injection atorvastati 2020-0 Yes [id number] 80mg Take 1 [facility] n 80 mg 3-20 tablet by ity of tablet 00:00: mouth at bedtime. Medical Branch clopidogreL 2020-0 Yes [id number] 75mg Take 1 [facility] (PLAVIX) 75 3-20 tablet by ity of mg tablet 00:00: mouth daily. Medical Branch insulin NPH 2019-0 Yes [id number] Inject 84 [facility] and regular 3-20 units AM, ity of human 00:00: 84 units [place] (NOVOLIN 00 PM Medical 70/30 U-100 Branch INSULIN) 100 unit/mL (70-30) injection atorvastati 2020-0 Yes [id number] 80mg Take 1 [facility] n 80 mg 3-20 tablet by ity of tablet 00:00: mouth at [place] bedtime. [facility] clopidogreL 2020-0 Yes [id number] 75mg Take 1 [facility] (PLAVIX) 75 3-20 tablet by ity of mg tablet 00:00: mouth 00 daily. [facility] insulin NPH 2020-0 Yes [id number] Inject 84 [facility] and regular 3-20 units AM, ity of human 70 00:00: 84 units [place] (NOVOLIN 00 PM Medical 70/30 U-100 Branch INSULIN) 100 unit/mL (70-30) injection atorvastati 2020-0 Yes [id number] 80mg Take 1 [facility] n 80 mg 3-20 tablet by ity of tablet 00:00: mouth at [place] 00 bedtime. [facility] clopidogreL 2020-0 Yes [id number] 75mg Take 1 [facility] (PLAVIX) 75 3-20 tablet by ity of mg tablet 00:00: mouth [place] 00 daily. [facility] insulin NPH 2020-0 Yes [id number] Inject 84 [facility] and regular 3-20 units AM, ity of human 7030 00:00: 84 units [place] (NOVOLIN 00 PM Medical 70/30 U-100 Branch INSULIN) 100 unit/mL (70-30) injection atorvastati 2020-0 Yes [id number] 80mg Take 1 [facility] n 80 mg 3-20 tablet by ity of tablet 00:00: mouth at [place] 00 bedtime. [facility] clopidogreL 2020-0 Yes [id number] 75mg Take 1 [facility] (PLAVIX) 75 3-20 tablet by ity of mg tablet 00:00: mouth 00 daily. Medical Branch insulin NPH 2019-0 Yes [id number] Inject 84 [facility] and regular 3-20 units AM, ity of human 00:00: 84 units [place] (NOVOLIN 00 PM Medical 70/30 U-100 Branch INSULIN) 100 unit/mL (70-30) injection atorvastati 2020-0 Yes [id number] 80mg Take 1 [facility] n 80 mg 3-20 tablet by ity of tablet 00:00: mouth at [place] bedtime. [facility] clopidogreL 2020-0 Yes [id number] 75mg Take 1 [facility] (PLAVIX) 75 3-20 tablet by ity of mg tablet 00:00: mouth daily. Medical Branch insulin NPH 2020-0 Yes [id number] Inject 84 [facility] and regular 3-20 units AM, ity of human 7030 00:00: 84 units [place] (NOVOLIN 00 PM Medical 70/30 U-100 Branch INSULIN) 100 unit/mL (70-30) injection atorvastati 2020-0 Yes [id number] 80mg Take 1 [facility] n 80 mg 3-20 tablet by ity of tablet 00:00: mouth at [place] 00 bedtime. [facility] clopidogreL 2020-0 Yes [id number] 75mg Take 1 [facility] (PLAVIX) 75 3-20 tablet by ity of mg tablet 00:00: mouth 00 daily. Medical Branch insulin NPH 2020-0 Yes [id number] Inject 84 [facility] and regular 3-20 units AM, ity of human 70-30 00:00: 84 units [place] (NOVOLIN 00 PM Medical 70/30 U-100 Branch INSULIN) 100 unit/mL (70-30) injection atorvastati 2020-0 Yes [id number] 80mg Take 1 [facility] n 80 mg 3-20 tablet by ity of tablet 00:00: mouth at [place] 00 bedtime. [facility] clopidogreL 2020-0 Yes [id number] 75mg Take 1 [facility] (PLAVIX) 75 3-20 tablet by ity of mg tablet 00:00: mouth 00 daily. Medical Branch insulin NPH 2019-0 Yes [id number] Inject 84 [facility] and regular 3-20 units AM, ity of human 00:00: 84 units [place] (NOVOLIN 00 PM Medical 70/30 U-100 Branch INSULIN) 100 unit/mL (70-30) injection atorvastati 2020-0 Yes [id number] 80mg Take 1 [facility] n 80 mg 3-20 tablet by ity of tablet 00:00: mouth at [place] bedtime. [facility] clopidogreL 2020-0 Yes [id number] 75mg Take 1 [facility] (PLAVIX) 75 3-20 tablet by ity of mg tablet 00:00: mouth daily. Medical Branch insulin NPH 2019-0 Yes [id number] Inject 84 [facility] and regular 3-20 units AM, ity of human 00:00: 84 units [place] (NOVOLIN 00 PM Medical 70/30 U-100 Branch INSULIN) 100 unit/mL (70-30) injection atorvastati 2020-0 Yes [id number] 80mg Take 1 [facility] n 80 mg 3-20 tablet by ity of tablet 00:00: mouth at [place] bedtime. [facility] clopidogreL 2020-0 Yes [id number] 75mg Take 1 [facility] (PLAVIX) 75 3-20 tablet by ity of mg tablet 00:00: mouth 00 daily. Medical Branch insulin NPH 2020-0 Yes [id number] Inject 84 [facility] and regular 3-20 units AM, ity of human 00:00: 84 units [place] (NOVOLIN 00 PM Medical 70/30 U-100 Branch INSULIN) 100 unit/mL (70-30) injection atorvastati 2020-0 Yes [id number] 80mg Take 1 [facility] n 80 mg 3-20 tablet by ity of tablet 00:00: mouth at [place] 00 bedtime. [facility] clopidogreL 2020-0 Yes [id number] 75mg Take 1 [facility] (PLAVIX) 75 3-20 tablet by ity of mg tablet 00:00: mouth [place] 00 daily. Medical Branch insulin NPH 2020-0 Yes [id number] Inject 84 [facility] and regular 3-20 units AM, ity of human 7030 00:00: 84 units [place] (NOVOLIN 00 PM Medical 70/30 U-100 Branch INSULIN) 100 unit/mL (70-30) injection atorvastati 2020-0 Yes [id number] 80mg Take 1 [facility] n 80 mg 3-20 tablet by ity of tablet 00:00: mouth at [place] 00 bedtime. [facility] clopidogreL 2020-0 Yes [id number] 75mg Take 1 [facility] (PLAVIX) 75 3-20 tablet by ity of mg tablet 00:00: mouth daily. Medical Branch insulin NPH 2019-0 Yes [id number] Inject 84 [facility] and regular 3-20 units AM, ity of human 7030 00:00: 84 units [place] (NOVOLIN 00 PM Medical 70/30 U-100 Branch INSULIN) 100 unit/mL (70-30) injection atorvastati 2020-0 Yes [id number] 80mg Take 1 [facility] n 80 mg 3-20 tablet by ity of tablet 00:00: mouth at [place] bedtime. [facility] clopidogreL 2020-0 Yes [id number] 75mg Take 1 [facility] (PLAVIX) 75 3-20 tablet by ity of mg tablet 00:00: mouth daily. Medical Branch insulin NPH 2020-0 Yes [id number] Inject 84 [facility] and regular 3-20 units AM, ity of human 7030 00:00: 84 units [place] (NOVOLIN 00 PM Medical 70/30 U-100 Branch INSULIN) 100 unit/mL (70-30) injection atorvastati 2020-0 Yes [id number] 80mg Take 1 [facility] n 80 mg 3-20 tablet by ity of tablet 00:00: mouth at [place] 00 bedtime. [facility] clopidogreL 2020-0 Yes [id number] 75mg Take 1 [facility] (PLAVIX) 75 3-20 tablet by ity of mg tablet 00:00: mouth 00 daily. Medical Branch insulin NPH 2020-0 Yes [id number] Inject 84 [facility] and regular 3-20 units AM, ity of human 70-30 00:00: 84 units [place] (NOVOLIN 00 PM Medical 70/30 U-100 Branch INSULIN) 100 unit/mL (70-30) injection atorvastati 2020-0 Yes [id number] 80mg Take 1 [facility] n 80 mg 3-20 tablet by ity of tablet 00:00: mouth at [place] 00 bedtime. [facility] clopidogreL 2020-0 Yes [id number] 75mg Take 1 [facility] (PLAVIX) 75 3-20 tablet by ity of mg tablet 00:00: mouth [place] 00 daily. Medical Branch insulin NPH 2019-0 Yes [id number] Inject 84 [facility] and regular 3-20 units AM, ity of human 70-30 00:00: 84 units [place] (NOVOLIN 00 PM Medical 70/30 U-100 Branch INSULIN) 100 unit/mL (70-30) injection atorvastati 2019-0 Yes [id number] 80mg Take 1 [facility] n 80 mg 3-20 tablet by ity of tablet 00:00: mouth at [place] 00 bedtime. [facility] clopidogreL 2020-0 Yes [id number] 75mg Take 1 [facility] (PLAVIX) 75 3-20 tablet by ity of mg tablet 00:00: mouth [place] 00 daily. [facility] atorvastati 2020-0 Yes [id number] 80mg Take 1 [facility] n 80 mg 3-20 tablet by ity of tablet 00:00: mouth at [place] 00 bedtime. [facility] clopidogreL 2020-0 Yes [id number] 75mg Take 1 [facility] (PLAVIX) 75 3-20 tablet by ity of mg tablet 00:00: mouth 00 daily. [facility] Branch atorvastati 2020-0 Yes [id number] 80mg Take 1 [facility] n 80 mg 3-20 tablet by ity of tablet 00:00: mouth at [place] 00 bedtime. [facility] clopidogreL 2020-0 Yes [id number] 75mg Take 1 [facility] (PLAVIX) 75 3-20 tablet by ity of mg tablet 00:00: mouth [place] 00 daily. [facility] atorvastati 2020-0 Yes [id number] 80mg Take 1 [facility] n 80 mg 3-20 tablet by ity of tablet 00:00: mouth at [place] 00 bedtime. [facility] clopidogreL 2020-0 Yes [id number] 75mg Take 1 [facility] (PLAVIX) 75 3-20 tablet by ity of mg tablet 00:00: mouth [place] 00 daily. [facility] atorvastati 2020-0 Yes [id number] 80mg Take 1 [facility] n 80 mg 3-20 tablet by ity of tablet 00:00: mouth at [place] 00 bedtime. [facility] clopidogreL 2020-0 Yes [id number] 75mg Take 1 [facility] (PLAVIX) 75 3-20 tablet by ity of mg tablet 00:00: mouth [place] 00 daily. [facility] atorvastati 2020-0 Yes [id number] 80mg Take 1 [facility] n 80 mg 3-20 tablet by ity of tablet 00:00: mouth at [place] 00 bedtime. [facility] clopidogreL 2020-0 Yes [id number] 75mg Take 1 [facility] (PLAVIX) 75 3-20 tablet by ity of mg tablet 00:00: mouth [place] 00 daily. [facility] clopidogreL 2020-0 Yes [id number] 75mg Take 1 [facility] (PLAVIX) 75 3-20 tablet by ity of mg tablet 00:00: mouth [place] 00 daily. [facility] clopidogreL 2020-0 Yes [id number] 75mg Take 1 [facility] (PLAVIX) 75 3-20 tablet by ity of mg tablet 00:00: mouth [place] 00 daily. [facility] clopidogreL 2020-0 Yes [id number] 75mg Take 1 [facility] (PLAVIX) 75 3-20 tablet by ity of mg tablet 00:00: mouth [place] 00 daily. [facility] clopidogreL 2020-0 Yes [id number] 75mg Take 1 [facility] (PLAVIX) 75 3-20 tablet by ity of mg tablet 00:00: mouth [place] 00 daily. [facility] clopidogreL 2020-0 Yes [id number] 75mg Take 1 [facility] (PLAVIX) 75 3-20 tablet by ity of mg tablet 00:00: mouth [place] 00 daily. [facility] clopidogreL 2020-0 Yes [id number] 75mg Take 1 [facility] (PLAVIX) 75 3-20 tablet by ity of mg tablet 00:00: mouth [place] 00 daily. [facility] clopidogreL 2020-0 Yes [id number] 75mg Take 1 [facility] (PLAVIX) 75 3-20 tablet by ity of mg tablet 00:00: mouth [place] 00 daily. [facility] clopidogreL 2020-0 Yes [id number] 75mg Take 1 [facility] (PLAVIX) 75 3-20 tablet by ity of mg tablet 00:00: mouth [place] 00 daily. [facility] clopidogreL 2020-0 Yes [id number] 75mg Take 1 [facility] (PLAVIX) 75 3-20 tablet by ity of mg tablet 00:00: mouth [place] 00 daily. [facility] clopidogreL 2020-0 Yes [id number] 75mg Take 1 [facility] (PLAVIX) 75 3-20 tablet by ity of mg tablet 00:00: mouth [place] 00 daily. [facility] clopidogreL 2020-0 Yes [id number] 75mg Take 1 [facility] (PLAVIX) 75 3-20 tablet by ity of mg tablet 00:00: mouth [place] 00 daily. [facility] clopidogreL 2020-0 Yes [id number] 75mg Take 1 [facility] (PLAVIX) 75 3-20 tablet by ity of mg tablet 00:00: mouth [place] 00 daily. Medical Branch insulin NPH 2019-0 Yes [id number] Inject 84 [facility] and regular 3-20 units AM, ity of human 70-30 00:00: 84 units [place] (NOVOLIN 00 PM Medical 70/30 U-100 Branch INSULIN) 100 unit/mL (70-30) injection atorvastati 2019-0 Yes [id number] 80mg Take 1 [facility] n 80 mg 3-20 07 tablet by ity of tablet 00:00: mouth at [place] 00 bedtime. Medical Branch clopidogreL 2019-0 Yes [id number] 75mg Take 1 [facility] (PLAVIX) 75 3-20 tablet by ity of mg tablet 00:00: mouth [place] 00 daily. Medical Branch insulin NPH 2019-0 Yes [id number] Inject 84 [facility] and regular 3-20 units AM, ity of human 70-30 00:00: 84 units [place] (NOVOLIN 00 PM Medical 70/30 U-100 Branch INSULIN) 100 unit/mL (70-30) injection atorvastati 2019-0 Yes [id number] 80mg Take 1 [facility] n 80 mg [...] Medical placement Branch clopidogreL 2020-0 2020- No [id number] 75mg Take 1 [facility] (PLAVIX) 75 3-20 07-06 tablet by it y of mg tablet 00:00: 00:00 mouth [place] 00 :00 daily. Medical Branch atorvastati 2020- No [id number] 80mg Take 1 [facility] n 80 mg 3-20 -06 tablet by ity of tablet 00:00: 00:00 mouth at [place] 00 :00 bedtime. Medical Branch atorvastati 2020- No [id number] 80mg Take 1 [facility] n 80 mg 3-20 -06 tablet by ity of tablet 00:00: 00:00 mouth at [place] 00 :00 bedtime. Medical Branch atorvastati 2020- No Coronary 80mg Take 1 [facility] n 80 mg 3-20 -06 artery tablet by ity of tablet 00:00: 00:00 disease mouth at [place] 00 :00 involving bedtime. [facility] l [place] [facility] coronary artery of [place] heart without angina pectoris atorvastati 2020- No Coronary 80mg Take 1 [facility] n 80 mg 3-20 -06 artery tablet by ity of tablet 00:00: 00:00 disease mouth at [place] 00 :00 involving bedtime. [facility]ica l [place] [facility] coronary artery of [place] heart without angina pectoris insulin NPH 2020- No [id number] Inject 84 Univers and regular 3- 04-12 [...] Medi blanquita (8 %) IV 08/15/19 at [facility] h Piggyback 4 0745, g Routine ipratropium [...] ONCE, 1 [place] (LUMASON) 00 :00 dose, Wed Medic al [...] (rounded ity of (LANTUS 14:00: 06:45 from [place] U-100) 00 :18 20.175 Medical injection Units [...] Routine ipratropium 2019- No 3mL 3 mL, [facility] [place] [facility] ers -albuterol 08-13 Inhalation it y of (DUONEB) 13:00: 10:24 , QID, [place] 0.5 mg-3 00 :42 First dose Medic [...] 0.25 Branch Units Units/kg/d ay ?80.7 kg), [facility], First dose on Mon08/14/19 at 0730, Until Discontinu ed, Routine magnesium 2019-0 2020- No 4g 4 g, IV Univ ers sulfate in 08-13 Piggyback, it y of water 4 12:15: 14:00 ONCE, 1 [place] gram/50 mL 00 :00 dose, Mon Medi blanquita (8 %) IV 08/14/19 at [facility] h Piggyback 4 0715, g Routine dextrose [...] KIT) 55 Starting Medical injection 1 Mon [place] mg 08/14/19 at 0705, Until Discontinu ed, TRANG, Blood Glucose < or = 70 mg/dL and patient is unable to swallow or has mental changes. morpHINE 2020- No 2mg 2 mg, Slow Un cali injection 2 08-13 IV Push, ity of mg 11:45: 10:43 ONCE, 1 [place] 00 :00 dose, Mon Medical 08/14/19 at [place] 0645, Routine atorvastati 2019-0 2020- No 40mg 40 mg, Uni vers n (LIPITOR) 08-13 Oral, QHS, i ty of tablet 40 02:00: 14:33 First dose [place] mg 00 :04 on [facility] Medical 08/13/19 at [place] 2100, Until Discontinu ed, Routine Sliding 2019-0 2020- No Subcutaneo Uni vers Scale 08-12 us, TID ity of Insulin - 22:00: 12:09 MEALS+HS, [place] Aspart 00 :18 First dose Medical (NOVOLOG) + on [facility] 08/13/19 at Testing 1700, Until Discontinu ed, Routine dextrometho 2019-0 Yes 5mL 5 mL, [facility] rs rphan-guaif 08-12 Oral, ity of enesin 21:03: Q6HPRN, [place] (ROBITUSSIN 48 Starting Medi blanquita DM) 10-100 [facility] mg/5 mL 08/13/19 at solution 5 1603, mL Until Discontinu ed, Routine, Cough morpHINE 2019- No 4mg 4 mg, Slow Un cali injection 4 08-12 IV Push, ity of mg 21:00: 20:06 ONCE, 1 [place] 00 :00 dose, [facility] 08/13/19 at Branch 1600, Routine clopidogreL 2019- No 300mg 300 mg, U nivers (PLAVIX) 08-12 Oral, ity of tablet 300 20:30: 21:32 ONCE, 1 [place] mg 00 :00 dose, [facility] 08/13/19 at Branch 1530, Routine NaCl 0.9% 2019- No 500mL at 50 [facility] [place] [facility] rs (NS) IV 08-12 mL/hr, IV ity of infusion 20:30: 19:41 Infusion, [place] 500 mL 00 :00 ONCE, 1 Medical dose, [facility] 08/13/19 at 1530, Routine
50 cc/hr for 500 mL total
HYDROcodone 2019- No 1{tbl} 1 tablet, Univers -acetaminop 08-12 Oral, ity of hen (NORCO 20:15: 02:39 ONCE, 1 [place] 5) 5-325 mg 00 :00 dose, [facility] Med ical tablet 1 08/13/19 at [facility] h tablet 1515, Routine FENTanyl PF 2020- No Slow IV Un cali (SUBLIMAZE 08-12 Push, ity of (PF)) 16:26: 16:26 TITRATE - [place] injection 15 :15 FOR Medical PROCEDURE Branch USE, 1 dose, Starting [facility] 08/13/19 at 1126, Until Mon08/13/19 at 1126, Routine midazolam 2019-0 2020- No IV Push, Uni vers (VERSED) 08-12 TITRATE - ity o f injection 16:26: 16:26 FOR [place] 05 :05 PROCEDURE Medical USE, 1 Branch dose, Starting [facility] 08/13/19 at 1126, Until [facility] 08/13/19 at 1126, Routine clopidogreL 2019-0 2020- No 300mg 300 mg, U nivers (PLAVIX) 08-12 Oral, ity of tablet 300 15:30: 15:48 ONCE, 1 [place] mg 00 :00 dose, [facility] Medical 08/13/19 at Branch 1030, Routine pantoprazol 2019-0 Yes 40mg 40 mg, Univ ers e 08-12 Oral, ity of (PROTONIX) 14:00: DAILY, [place] EC tablet 00 First dose Medi blanquita 40 mg on [facility] 08/13/19 at 0900, Until Discontinu ed, Routine isosorbide 2019-0 Yes 30mg 30 mg, Unive rs mononitrate 08-12 Oral, ity of (IMDUR) 24 14:00: DAILY, [place] hr tablet 00 First dose Medi blanquita 30 mg on [facility] 08/13/19 at 0900, Until Discontinu ed, Routine furosemide 2019-0 Yes 20mg 20 mg, Unive rs (LASIX) 08-12 Oral, ity of tablet 20 14:00: DAILY, [place] mg 00 First dose Medical on [facility] 08/13/19 at 0900, Until Discontinu ed, Routine insulin NPH 2019- 2020- No .3U/kg/ 12 Units Univers (HUMULIN N) 08-12 d (rounded ity of injection 14:00: 12:08 from [place] 12 Units 00 :24 12.195 Medical Units = Branch 0.3 Units/kg/d ay ?81.3 kg), Subcutaneo us, QAM+HS, First dose on [facility] 08/13/19 at 0900, Until Discontinu ed, Routine metoprolol 2019-0 2020- No 25mg 25 mg, Univ ers tartrate 08-12 Oral, ity of (LOPRESSOR) 14:00: 12:10 DAILY, [place] tablet 25 00 :23 First dose Medi [place] mg on [facility] 08/13/19 at 0900, Until Discontinu ed, Routine aspirin EC 2019- 2020- No 81mg 81 mg, Univ ers tablet 81 08-12 Oral, ity of mg 14:00: 13:38 DAILY, [place] 00 :12 First dose Medical on [facility] 08/13/19 at 0900, Until Discontinu ed, Routine gabapentin 2020-0 Yes 800mg 800 mg, Uni vers (NEURONTIN) 08-12 Oral, TID, it y of tablet 800 13:00: First dose [place] mg 00 on [facility] Medical 08/13/19 at Branch 0800, Until Discontinu ed, Routine insulin 2019- 2020- No .3U/kg/ 8 Units Uni vers aspart 08-1218 d (rounded ity of RAPID 13:00: 12:08 from 8.13 [place] (NOVOLOG) 00 :24 Units = Medical injection 8 0.3 Branch Units Units/kg/d ay ?81.3 kg), Subcutaneo us, TID MEALS, First dose on [facility] 08/13/19 at 0800, Until Discontinu ed, Routine heparin 2019-0 2020- No 12U/kg/ 12 Univer s 25,000 08-12 h Units/kg/h ity of units/250mL 10:45: 18:00 r ?81.3 kg [place] in NS 00 :11 (9.756 Medical weight [...] ONCE, 1 Medical Soln 4,000 dose, Mon [facility] ch Units 08/13/19 at 0500, Routine heparin 2020-0 Yes 3000U FOR Univers (1,000 08-12 REBOLUSING ity of unit/mL, 10 09:43: , Starting [place] mL vial) 08 [facility] for 08/13/19 at Branch Rebolusing 0443, Until [...] 59 :57 Starting Medi [place] DM) 10-100 [facility] mg/5 mL 08/13/19 at solution 5 0225, mL Until 08/13/19 at 1603, Routine, Cough morpHINE 2020-0 2020- No 2mg 2 mg, Slow Un cali injection 2 08-12 IV Push, ity of mg 06:08: 13:24 Q6HPRN, 2 [place] 33 :00 doses, Medical Starting Branch [facility] 08/13/19 at 0108, Until 08/13/19 at 0824, Routine, Chest pain aspirin 2020-0 Yes 81mg Take 81 mg Univ ers (ASPIRIN 3-17 by mouth ity of LOW DOSE) 04:49: daily. [place] 81 mg EC 06 Medical tablet [place] aspirin 2020-0 Yes 81mg Take 81 mg Univ ers (ASPIRIN 3-17 by mouth ity of LOW DOSE) 04:49: daily. [place] 81 mg EC 06 Medical tablet [place] nitroglycer 2020-0 Yes .4mg 0.4 mg, Uni [...] 37 Medical tablet Branch isosorbide 2020-0 Yes [id number] 30mg Take 1 [facility] mononitrate 3-09 tablet by ity of 30 mg 24 hr 00:00: mouth [place] tablet 00 daily. Medical Branch isosorbide 2020-0 Yes [id number] 30mg Take 1 [facility] mononitrate 3-09 tablet by ity of 30 mg 24 hr 00:00: mouth [place] tablet 00 daily. Medical Branch isosorbide 2020-0 Yes [id number] 30mg Take 1 [facility] mononitrate 3-09 tablet by ity of 30 mg 24 hr 00:00: mouth [place] tablet 00 daily. Medical Branch isosorbide 2020-0 Yes [id number] 30mg Take 1 [facility] mononitrate 3-09 tablet by ity of 30 mg 24 hr 00:00: mouth [place] tablet 00 daily. Medical Branch isosorbide 2020-0 Yes [id number] 30mg Take 1 [facility] mononitrate 3-09 tablet by ity of 30 mg 24 hr 00:00: mouth [place] tablet 00 daily. Medical Branch isosorbide 2020-0 Yes [id number] 30mg Take 1 [facility] mononitrate 3-09 tablet by ity of 30 mg 24 hr 00:00: mouth [place] tablet 00 daily. Medical Branch isosorbide 2020-0 Yes [id number] 30mg Take 1 [facility] mononitrate 3-09 tablet by ity of 30 mg 24 hr 00:00: mouth [place] tablet 00 daily. Medical Branch isosorbide 2020-0 Yes [id number] 30mg Take 1 [facility] mononitrate 3-09 tablet by ity of 30 mg 24 hr 00:00: mouth [place] tablet 00 daily. Medical Branch isosorbide 2020-0 Yes [id number] 30mg Take 1 [facility] mononitrate 3-09 tablet by ity of 30 mg 24 hr 00:00: mouth [place] tablet 00 daily. Medical Branch isosorbide 2020-0 Yes [id number] 30mg Take 1 [facility] mononitrate 3-09 tablet by ity of 30 mg 24 hr 00:00: mouth [place] tablet 00 daily. Medical Branch isosorbide 2020-0 Yes [id number] 30mg Take 1 [facility] mononitrate 3-09 tablet by ity of 30 mg 24 hr 00:00: mouth [place] tablet 00 daily. Medical Branch isosorbide 2020-0 Yes [id number] 30mg Take 1 [facility] mononitrate 3-09 tablet by ity of 30 mg 24 hr 00:00: mouth [place] tablet 00 daily. Medical Branch isosorbide 2020-0 Yes [id number] 30mg Take 1 [facility] mononitrate 3-09 tablet by ity of 30 mg 24 hr 00:00: mouth [place] tablet 00 daily. Medical Branch isosorbide 2020-0 Yes [id number] 30mg Take 1 [facility] mononitrate 3-09 tablet by ity of 30 mg 24 hr 00:00: mouth [place] tablet 00 daily. Medical Branch isosorbide 2020-0 Yes [id number] 30mg Take 1 [facility] mononitrate 3-09 tablet by ity of 30 mg 24 hr 00:00: mouth [place] tablet 00 daily. Medical Branch isosorbide 2020-0 Yes [id number] 30mg Take 1 [facility] mononitrate 3-09 tablet by ity of 30 mg 24 hr 00:00: mouth [place] tablet 00 daily. Medical Branch isosorbide 2020-0 Yes [id number] 30mg Take 1 [facility] mononitrate 3-09 tablet by ity of 30 mg 24 hr 00:00: mouth [place] tablet 00 daily. Medical Branch isosorbide 2020-0 Yes [id number] 30mg Take 1 [facility] mononitrate 3-09 tablet by ity of 30 mg 24 hr 00:00: mouth [place] tablet 00 daily. [facility] isosorbide 2020-0 Yes [id number] 30mg Take 1 [facility] mononitrate 3-09 tablet by ity of 30 mg 24 hr 00:00: mouth [place] tablet 00 daily. [facility] isosorbide 2020-0 Yes [id number] 30mg Take 1 [facility] mononitrate 3-09 tablet by ity of 30 mg 24 hr 00:00: mouth [place] tablet 00 daily. [facility] isosorbide 2020-0 Yes [id number] 30mg Take 1 [facility] mononitrate 3-09 tablet by ity of 30 mg 24 hr 00:00: mouth [place] tablet 00 daily. [facility] isosorbide 2020-0 Yes [id number] 30mg Take 1 [facility] mononitrate 3-09 tablet by ity of 30 mg 24 hr 00:00: mouth [place] tablet 00 daily. [facility] isosorbide 2020-0 Yes [id number] 30mg Take 1 [facility] mononitrate 3-09 tablet by ity of 30 mg 24 hr 00:00: mouth [place] tablet 00 daily. [facility] isosorbide 2020-0 Yes [id number] 30mg Take 1 [facility] mononitrate 3-09 tablet by ity of 30 mg 24 hr 00:00: mouth [place] tablet 00 daily. [facility] isosorbide 2020-0 Yes [id number] 30mg Take 1 [facility] mononitrate 3-09 tablet by ity of 30 mg 24 hr 00:00: mouth [place] tablet 00 daily. [facility] isosorbide 2020-0 Yes [id number] 30mg Take 1 [facility] mononitrate 3-09 tablet by ity of 30 mg 24 hr 00:00: mouth [place] tablet 00 daily. [facility] isosorbide 2020-0 Yes [id number] 30mg Take 1 [facility] mononitrate 3-09 tablet by ity of 30 mg 24 hr 00:00: mouth [place] tablet 00 daily. [facility] isosorbide 2020-0 Yes [id number] 30mg Take 1 [facility] mononitrate 3-09 tablet by ity of 30 mg 24 hr 00:00: mouth [place] tablet 00 daily. [facility] isosorbide 2020-0 Yes [id number] 30mg Take 1 [facility] mononitrate 3-09 tablet by ity of 30 mg 24 hr 00:00: mouth [place] tablet 00 daily. [facility] isosorbide 2020-0 Yes [id number] 30mg Take 1 [facility] mononitrate 3-09 tablet by ity of 30 mg 24 hr 00:00: mouth [place] tablet 00 daily. [facility] isosorbide 2020-0 Yes [id number] 30mg Take 1 [facility] mononitrate 3-09 tablet by ity of 30 mg 24 hr 00:00: mouth [place] tablet 00 daily. [facility] isosorbide 2020-0 Yes [id number] 30mg Take 1 [facility] mononitrate 3-09 tablet by ity of 30 mg 24 hr 00:00: mouth [place] tablet 00 daily. [facility] isosorbide 2020-0 Yes [id number] 30mg Take 1 [facility] mononitrate 3-09 tablet by ity of 30 mg 24 hr 00:00: mouth [place] tablet 00 daily. [facility] isosorbide 2020-0 Yes [id number] 30mg Take 1 [facility] mononitrate 3-09 tablet by ity of 30 mg 24 hr 00:00: mouth [place] tablet 00 daily. [facility] isosorbide 2020-0 Yes [id number] 30mg Take 1 [facility] mononitrate 3-09 tablet by ity of 30 mg 24 hr 00:00: mouth [place] tablet 00 daily. [facility] isosorbide 2020-0 Yes [id number] 30mg Take 1 [facility] mononitrate 3-09 tablet by ity of 30 mg 24 hr 00:00: mouth [place] tablet 00 daily. [facility] isosorbide 2020-0 Yes [id number] 30mg Take 1 [facility] mononitrate 3-09 tablet by ity of 30 mg 24 hr 00:00: mouth [place] tablet 00 daily. [facility] isosorbide 2020-0 Yes [id number] 30mg Take 1 [facility] mononitrate 3-09 tablet by ity of 30 mg 24 hr 00:00: mouth [place] tablet 00 daily. [facility] isosorbide 2020-0 Yes [id number] 30mg Take 1 [facility] mononitrate 3-09 tablet by ity of 30 mg 24 hr 00:00: mouth [place] tablet 00 daily. [facility] isosorbide 2020-0 Yes [id number] 30mg Take 1 [facility] mononitrate 3-09 tablet by ity of 30 mg 24 hr 00:00: mouth [place] tablet 00 daily. [facility] isosorbide 2020-0 Yes [id number] 30mg Take 1 [facility] mononitrate 3-09 tablet by ity of 30 mg 24 hr 00:00: mouth [place] tablet 00 daily. [facility] isosorbide 2020-0 Yes [id number] 30mg Take 1 [facility] mononitrate 3-09 tablet by ity of 30 mg 24 hr 00:00: mouth [place] tablet 00 daily. [facility] isosorbide 2020-0 Yes [id number] 30mg Take 1 [facility] mononitrate 3-09 tablet by ity of 30 mg 24 hr 00:00: mouth [place] tablet 00 daily. [facility] isosorbide 2020-0 Yes [id number] 30mg Take 1 [facility] mononitrate 3-09 tablet by ity of 30 mg 24 hr 00:00: mouth [place] tablet 00 daily. [facility] isosorbide 2020-0 Yes [id number] 30mg Take 1 [facility] mononitrate 3-09 tablet by ity of 30 mg 24 hr 00:00: mouth [place] tablet 00 daily. [facility] isosorbide 2020-0 Yes [id number] 30mg Take 1 [facility] mononitrate 3-09 tablet by ity of 30 mg 24 hr 00:00: mouth [place] tablet 00 daily. [facility] isosorbide 2020-0 Yes [id number] 30mg Take 1 [facility] mononitrate 3-09 tablet by ity of 30 mg 24 hr 00:00: mouth [place] tablet 00 daily. [facility] isosorbide 2020-0 Yes [id number] 30mg Take 1 [facility] mononitrate 3-09 tablet by ity of 30 mg 24 hr 00:00: mouth [place] tablet 00 daily. [facility] isosorbide 2020-0 Yes [id number] 30mg Take 1 [facility] mononitrate 3-09 tablet by ity of 30 mg 24 hr 00:00: mouth [place] tablet 00 daily. [facility] isosorbide 2020-0 Yes [id number] 30mg Take 1 [facility] mononitrate 3-09 tablet by ity of 30 mg 24 hr 00:00: mouth [place] tablet 00 daily. [facility] isosorbide 2020-0 2021- No [id number] 30mg Take 1 [facility] mononitrate 3-09 -08 tablet by it y of 30 mg 24 hr 00:00: 00:[place] tablet 00 :00 daily. [facility] insulin NPH 2018-05 Yes [id number] Inject 80 [facility] and regular 2-13 units AM, ity of human 70-30 00:00: 90 units [place] (NOVOLIN 00 PM Medical 70/30 U-100 Branch INSULIN) 100 unit/mL (70-30) injection insulin NPH 2018-05 Yes [id number] Inject 80 [facility] and regular 2-13 units AM, ity of human 70-30 00:00: 90 units [place] (NOVOLIN 00 PM Medical 70/30 U-100 Branch INSULIN) 100 unit/mL (70-30) injection insulin NPH 2018-05 Yes [id number] Inject 80 [facility] and regular 2-13 units AM, ity of human 7030 00:00: 90 units [place] (NOVOLIN 00 PM Medical 70/30 U-100 Branch INSULIN) 100 unit/mL (70-30) injection insulin NPH 2018-05 Yes [id number] Inject 80 [facility] and regular 2-13 units AM, ity of human 00:00: 90 units [place] (NOVOLIN 00 PM Medical 70/30 U-100 Branch INSULIN) 100 unit/mL (70-30) injection insulin NPH 2018-05 Yes [id number] Inject 80 [facility] and regular 2-13 units AM, ity of human 30 00:00: 90 units [place] (NOVOLIN 00 PM Medical 70/30 U-100 Branch INSULIN) 100 unit/mL (70-30) injection insulin NPH 2018-05 Yes [id number] Inject 80 [facility] and regular 2-13 units AM, ity of human 00:00: 90 units [place] (NOVOLIN 00 PM Medical 70/30 U-100 Branch INSULIN) 100 unit/mL (70-30) injection insulin NPH 2018-05 Yes [id number] Inject 80 [facility] and regular 2-13 units AM, ity of human 00:00: 90 units [place] (NOVOLIN 00 PM Medical 70/30 U-100 Branch INSULIN) 100 unit/mL (70-30) injection insulin NPH 2018-05 2020- No [id number] Inject 80 [facility] and regular 2-13 03-20 units AM, it y of human 00:00: 00:00 90 units [place] (NOVOLIN 00 :00 PM Medical 70/30 U-100 Branch INSULIN) 100 unit/mL (70-30) injection FUROSEMIDE 2018-05 Yes [id number] TAKE 1 U nivers 20 mg 2-11 TABLET BY ity of tablet 00:00: MOUTH ONCE DAILY [facility] FUROSEMIDE 2018-05 Yes [id number] TAKE 1 U nivers 20 mg 2-11 TABLET BY ity of tablet 00:00: MOUTH ONCE DAILY [facility] FUROSEMIDE 2018-05 Yes [id number] TAKE 1 U nivers 20 mg 2-11 TABLET BY ity of tablet 00:00: MOUTH ONCE [place] DAILY [facility] FUROSEMIDE 2019- Yes [id number] TAKE 1 U nivers 20 mg 2-11 TABLET BY ity of tablet 00:00: MOUTH ONCE DAILY [facility] FUROSEMIDE 2019- Yes [id number] TAKE 1 [facility] nivers 20 mg 2-11 TABLET BY ity of tablet 00:00: MOUTH ONCE [facility] FUROSEMIDE 2019- Yes [id number] TAKE 1 [facility] nivers 20 mg 2-11 TABLET BY ity of tablet 00:00: MOUTH ONCE DAILY [facility] FUROSEMIDE 2019- Yes [id number] TAKE 1 [facility] nivers 20 mg 2-11 TABLET BY ity of tablet 00:00: MOUTH ONCE DAILY [facility] FUROSEMIDE 2019- Yes [id number] TAKE 1 [facility] nivers 20 mg 2-11 TABLET BY ity of tablet 00:00: MOUTH ONCE DAILY [facility] FUROSEMIDE 2019- Yes [id number] TAKE 1 [facility] nivers 20 mg 2-11 TABLET BY ity of tablet 00:00: MOUTH ONCE DAILY [facility] FUROSEMIDE 2019- Yes [id number] TAKE 1 [facility] nivers 20 mg 2-11 TABLET BY ity of tablet 00:00: MOUTH ONCE DAILY [facility] FUROSEMIDE 2019- Yes [id number] TAKE 1 [facility] nivers 20 mg 2-11 TABLET BY ity of tablet 00:00: MOUTH ONCE [place] DAILY [facility] FUROSEMIDE 2019- Yes [id number] TAKE 1 [facility] nivers 20 mg 2-11 TABLET BY ity of tablet 00:00: MOUTH ONCE [place] DAILY [facility] FUROSEMIDE 2019- Yes [id number] TAKE 1 U nivers 20 mg 2-11 TABLET BY ity of tablet 00:00: MOUTH ONCE [place] DAILY [facility] FUROSEMIDE 2019- Yes [id number] TAKE 1 [facility] nivers 20 mg 2-11 TABLET BY ity of tablet 00:00: MOUTH ONCE [place] DAILY [facility] FUROSEMIDE 2019- Yes [id number] TAKE 1 [facility] nivers 20 mg 2-11 TABLET BY ity of tablet 00:00: MOUTH ONCE DAILY [facility] FUROSEMIDE 2019- Yes [id number] TAKE 1 [facility] nivers 20 mg 2-11 TABLET BY ity of tablet 00:00: MOUTH ONCE [place] DAILY [facility] FUROSEMIDE 2019- Yes [id number] TAKE 1 [facility] nivers 20 mg 2-11 TABLET BY ity of tablet 00:00: MOUTH ONCE [place] DAILY [facility] FUROSEMIDE 2019- Yes [id number] TAKE 1 [facility] nivers 20 mg 2-11 TABLET BY ity of tablet 00:00: MOUTH ONCE [place] DAILY [facility] FUROSEMIDE 2019- Yes [id number] TAKE 1 [facility] nivers 20 mg 2-11 TABLET BY ity of tablet 00:00: MOUTH ONCE [place] [address] DAILY [facility] FUROSEMIDE 2019- Yes [id number] TAKE 1 [facility] nivers 20 mg 2-11 TABLET BY ity of tablet 00:00: MOUTH ONCE [place] DAILY [facility] FUROSEMIDE 2019- Yes [id number] TAKE 1 [facility] nivers 20 mg 2-11 TABLET BY ity of tablet 00:00: MOUTH ONCE [place] DAILY [facility] FUROSEMIDE 2018- Yes [id number] TAKE 1 [facility] nivers 20 mg 2-11 TABLET BY ity of tablet 00:00: MOUTH ONCE [place] DAILY [facility] FUROSEMIDE 2019- Yes [id number] TAKE 1 [facility] nivers 20 mg 2-11 TABLET BY ity of tablet 00:00: MOUTH ONCE [place] [address] DAILY [facility] FUROSEMIDE 2019- Yes [id number] TAKE 1 [facility] nivers 20 mg 2-11 TABLET BY ity of tablet 00:00: MOUTH ONCE [place] DAILY [facility] FUROSEMIDE 2019- Yes [id number] TAKE 1 [facility] nivers 20 mg 2-11 TABLET BY ity of tablet 00:00: MOUTH ONCE [place] DAILY [facility] FUROSEMIDE 2019- Yes [id number] TAKE 1 [facility] nivers 20 mg 2-11 TABLET BY ity of tablet 00:00: MOUTH ONCE [place] [address] DAILY [facility] FUROSEMIDE 2019- Yes [id number] TAKE 1 [facility] nivers 20 mg 2-11 TABLET BY ity of tablet 00:00: MOUTH ONCE [place] [address] DAILY [facility] FUROSEMIDE 2019- 2020- No [id number] TAKE 1 [facility] 20 mg 2-11 08-18 TABLET BY it[facility] of tablet 00:00: 00:00 MOUTH ONCE [place] 00 :00 DAILY [facility] FUROSEMIDE 2019- 2020- No [id number] TAKE 1 [facility] 20 mg 2-11 08-18 TABLET BY it[facility] of tablet 00:00: 00:00 MOUTH ONCE [place] 00 :00 DAILY [facility] FUROSEMIDE 2019- 2020- No [id number] TAKE 1 [facility] 20 mg 2-11 08-18 TABLET BY ity of tablet 00:00: 00:00 MOUTH ONCE [place] 00 :00 DAILY [facility] pantoprazol 2019- Yes [id number] 40mg Take 1 [facility] e 40 mg EC 0-29 tablet by ity of tablet 00:00: mouth [place] 00 daily. [facility] potassium 2018-05 Yes [id number] 10meq Take 1 U nivers chloride 10 0-29 tablet by ity of mEq CR 00:00: mouth [place] tablet 00 daily. [facility] albuterol 2018-05 Yes [id number] 2{puff} Inhale 2 [facility] 90 0-29 Puffs ity of mcg/actuati 00:00: every 6 [place] inhaler 00 (six) Medical hours as Branch needed for Wheezing or Shortness of Breath. nitroglycer 2018-05 Yes [id number] 1 tab SL [facility] in 0.4 mg 0-29 q5min up ity of sublingual 00:00: to 3 doses [place] tablet 00 PRN chest Medical pain, then Branch activate 911. DULoxetine 2018-05 Yes [id number] 30mg Take 1 [facility] 30 mg 0-29 capsule by ity of capsule 00:00: mouth [place] 00 daily. [facility] pantoprazol 2018-05 Yes [id number] 40mg Take 1 [facility] e 40 mg EC 0-29 tablet by ity of tablet 00:00: mouth [place] 00 daily. [facility] potassium 2018-05 Yes [id number] 10meq Take 1 U nivers chloride 10 0-29 tablet by ity of mEq CR 00:00: mouth [place] tablet 00 daily. [facility] albuterol 2018-05 Yes [id number] 2{puff} Inhale 2 [facility] 90 0-29 Puffs ity of mcg/actuati 00:00: every 6 [place] inhaler 00 (six) Medical hours as Branch needed for Wheezing or Shortness of Breath. nitroglycer 2018-05 Yes [id number] 1 tab SL [facility] in 0.4 mg 0-29 q5min up ity of sublingual 00:00: to 3 doses [place] tablet 00 PRN chest Medical pain, then Branch activate 911. DULoxetine 2018-05 Yes [id number] 30mg Take 1 [facility] 30 mg 0-29 capsule by ity of capsule 00:00: mouth [place] 00 daily. [facility] pantoprazol 2018-05 Yes [id number] 40mg Take 1 [facility] e 40 mg EC 0-29 tablet by ity of tablet 00:00: mouth [place] 00 daily. [facility] potassium 2018-05 Yes [id number] 10meq Take 1 U nivers chloride 10 0-29 tablet by ity of mEq CR 00:00: mouth [place] tablet 00 daily. [facility] albuterol 2018-05 Yes [id number] 2{puff} Inhale 2 [facility] 90 0-29 Puffs ity of mcg/actuati 00:00: every 6 [place] inhaler 00 (six) Medical hours as Branch needed for Wheezing or Shortness of Breath. nitroglycer 2018-05 Yes [id number] 1 tab SL [facility] in 0.4 mg 0-29 q5min up ity of sublingual 00:00: to 3 doses [place] tablet 00 PRN chest Medical pain, then Branch activate 911. DULoxetine 2018-05 Yes [id number] 30mg Take 1 [facility] 30 mg 0-29 capsule by ity of capsule 00:00: mouth [place] 00 daily. [facility] pantoprazol 2018-05 Yes [id number] 40mg Take 1 [facility] e 40 mg EC 0-29 tablet by ity of tablet 00:00: mouth [place] 00 daily. [facility] potassium 2018-05 Yes [id number] 10meq Take 1 U nivers chloride 10 0-29 tablet by ity of mEq CR 00:00: mouth [place] tablet 00 daily. [facility] albuterol 2018-05 Yes [id number] 2{puff} Inhale 2 [facility] 90 0-29 Puffs ity of mcg/actuati 00:00: every 6 [place] inhaler 00 (six) Medical hours as Branch needed for Wheezing or Shortness of Breath. nitroglycer 2018-05 Yes [id number] 1 tab SL [facility] in 0.4 mg 0-29 q5min up ity of sublingual 00:00: to 3 doses [place] tablet 00 PRN chest Medical pain, then Branch activate 911. DULoxetine 2018-05 Yes [id number] 30mg Take 1 [facility] 30 mg 0-29 capsule by ity of capsule 00:00: mouth [place] 00 daily. [facility] pantoprazol 2018-05 Yes [id number] 40mg Take 1 [facility] e 40 mg EC 0-29 tablet by ity of tablet 00:00: mouth [place] 00 daily. [facility] potassium 2018-05 Yes [id number] 10meq Take 1 U nivers chloride 10 0-29 tablet by ity of mEq CR 00:00: mouth [place] tablet 00 daily. [facility] albuterol 2018-05 Yes [id number] 2{puff} Inhale 2 [facility] 90 0-29 Puffs ity of mcg/actuati 00:00: every 6 [place] inhaler 00 (six) Medical hours as Branch needed for Wheezing or Shortness of Breath. nitroglycer 2018-05 Yes [id number] 1 tab SL [facility] in 0.4 mg 0-29 q5min up ity of sublingual 00:00: to 3 doses [place] tablet 00 PRN chest Medical pain, then Branch activate 911. DULoxetine 2018-05 Yes [id number] 30mg Take 1 [facility] 30 mg 0-29 capsule by ity of capsule 00:00: mouth [place] 00 daily. [facility] pantoprazol 2018-05 Yes [id number] 40mg Take 1 [facility] e 40 mg EC 0-29 tablet by ity of tablet 00:00: mouth [place] 00 daily. [facility] potassium 2018-05 Yes [id number] 10meq Take 1 U nivers chloride 10 0-29 tablet by ity of mEq CR 00:00: mouth [place] tablet 00 daily. [facility] albuterol 2018-05 Yes [id number] 2{puff} Inhale 2 [facility] 90 0-29 Puffs ity of mcg/actuati 00:00: every 6 [place] inhaler 00 (six) Medical hours as Branch needed for Wheezing or Shortness of Breath. nitroglycer 2018-05 Yes [id number] 1 tab SL [facility] in 0.4 mg 0-29 q5min up ity of sublingual 00:00: to 3 doses [place] tablet 00 PRN chest Medical pain, then Branch activate 911. DULoxetine 2018-05 Yes [id number] 30mg Take 1 [facility] 30 mg 0-29 capsule by ity of capsule 00:00: mouth [place] 00 daily. [facility] pantoprazol 2018-05 Yes [id number] 40mg Take 1 [facility] e 40 mg EC 0-29 tablet by ity of tablet 00:00: mouth [place] 00 daily. [facility] potassium 2018-05 Yes [id number] 10meq Take 1 U nivers chloride 10 0-29 tablet by ity of mEq CR 00:00: mouth [place] tablet 00 daily. [facility] albuterol 2018-05 Yes [id number] 2{puff} Inhale 2 [facility] 90 0-29 Puffs ity of mcg/actuati 00:00: every 6 [place] inhaler 00 (six) Medical hours as Branch needed for Wheezing or Shortness of Breath. nitroglycer 2018-05 Yes [id number] 1 tab SL [facility] in 0.4 mg 0-29 q5min up ity of sublingual 00:00: to 3 doses [place] tablet 00 PRN chest Medical pain, then Branch activate 911. DULoxetine 2018-05 Yes [id number] 30mg Take 1 [facility] 30 mg 0-29 capsule by ity of capsule 00:00: mouth [place] 00 daily. [facility] pantoprazol 2018-05 Yes [id number] 40mg Take 1 [facility] e 40 mg EC 0-29 tablet by ity of tablet 00:00: mouth [place] 00 daily. [facility] potassium 2018-05 Yes [id number] 10meq Take 1 U nivers chloride 10 0-29 tablet by ity of mEq CR 00:00: mouth [place] tablet 00 daily. [facility] albuterol 2018-05 Yes [id number] 2{puff} Inhale 2 [facility] 90 0-29 Puffs ity of mcg/actuati 00:00: every 6 [place] inhaler 00 (six) Medical hours as Branch needed for Wheezing or Shortness of Breath. nitroglycer 2018-05 Yes [id number] 1 tab SL [facility] in 0.4 mg 0-29 q5min up ity of sublingual 00:00: to 3 doses [place] tablet 00 PRN chest Medical pain, then Branch activate 911. DULoxetine 2018-05 Yes [id number] 30mg Take 1 [facility] 30 mg 0-29 capsule by ity of capsule 00:00: mouth [place] 00 daily. [facility] pantoprazol 2018-05 Yes [id number] 40mg Take 1 [facility] e 40 mg EC 0-29 tablet by ity of tablet 00:00: mouth [place] 00 daily. [facility] potassium 2018-05 Yes [id number] 10meq Take 1 U nivers chloride 10 0-29 tablet by ity of mEq CR 00:00: mouth [place] tablet 00 daily. [facility] albuterol 2018-05 Yes [id number] 2{puff} Inhale 2 [facility] 90 0-29 Puffs ity of mcg/actuati 00:00: every 6 [place] inhaler 00 (six) Medical hours as Branch needed for Wheezing or Shortness of Breath. nitroglycer 2018-05 Yes [id number] 1 tab SL [facility] in 0.4 mg 0-29 q5min up ity of sublingual 00:00: to 3 doses [place] tablet 00 PRN chest Medical pain, then Branch activate 911. DULoxetine 2018-05 Yes [id number] 30mg Take 1 [facility] 30 mg 0-29 capsule by ity of capsule 00:00: mouth [place] 00 daily. [facility] pantoprazol 2018-05 Yes [id number] 40mg Take 1 [facility] e 40 mg EC 0-29 tablet by ity of tablet 00:00: mouth [place] 00 daily. [facility] potassium 2018-05 Yes [id number] 10meq Take 1 U nivers chloride 10 0-29 tablet by ity of mEq CR 00:00: mouth [place] tablet 00 daily. [facility] albuterol 2018-05 Yes [id number] 2{puff} Inhale 2 [facility] 90 0-29 Puffs ity of mcg/actuati 00:00: every 6 [place] inhaler 00 (six) Medical hours as Branch needed for Wheezing or Shortness of Breath. nitroglycer 2018-05 Yes [id number] 1 tab SL [facility] in 0.4 mg 0-29 q5min up ity of sublingual 00:00: to 3 doses [place] tablet 00 PRN chest Medical pain, then Branch activate 911. DULoxetine 2018-05 Yes [id number] 30mg Take 1 [facility] 30 mg 0-29 capsule by ity of capsule 00:00: mouth [place] 00 daily. [facility] pantoprazol 2018-05 Yes [id number] 40mg Take 1 [facility] e 40 mg EC 0-29 tablet by ity of tablet 00:00: mouth [place] 00 daily. [facility] potassium 2018-05 Yes [id number] 10meq Take 1 U nivers chloride 10 0-29 tablet by ity of mEq CR 00:00: mouth [place] tablet 00 daily. [facility] albuterol 2018-05 Yes [id number] 2{puff} Inhale 2 [facility] 90 0-29 Puffs ity of mcg/actuati 00:00: every 6 [place] inhaler 00 (six) Medical hours as Branch needed for Wheezing or Shortness of Breath. nitroglycer 2018-05 Yes [id number] 1 tab SL [facility] in 0.4 mg 0-29 q5min up ity of sublingual 00:00: to 3 doses [place] tablet 00 PRN chest Medical pain, then Branch activate 911. DULoxetine 2018-05 Yes [id number] 30mg Take 1 [facility] 30 mg 0-29 capsule by ity of capsule 00:00: mouth [place] 00 daily. [facility] pantoprazol 2018-05 Yes [id number] 40mg Take 1 [facility] e 40 mg EC 0-29 tablet by ity of tablet 00:00: mouth [place] 00 daily. [facility] potassium 2018-05 Yes [id number] 10meq Take 1 U nivers chloride 10 0-29 tablet by ity of mEq CR 00:00: mouth [place] tablet 00 daily. [facility] albuterol 2018-05 Yes [id number] 2{puff} Inhale 2 [facility] 90 0-29 Puffs ity of mcg/actuati 00:00: every 6 [place] inhaler 00 (six) Medical hours as Branch needed for Wheezing or Shortness of Breath. nitroglycer 2018-05 Yes [id number] 1 tab SL [facility] in 0.4 mg 0-29 q5min up ity of sublingual 00:00: to 3 doses [place] tablet 00 PRN chest Medical pain, then Branch activate 911. DULoxetine 2018-05 Yes [id number] 30mg Take 1 [facility] 30 mg 0-29 capsule by ity of capsule 00:00: mouth [place] 00 daily. [facility] pantoprazol 2018-05 Yes [id number] 40mg Take 1 [facility] e 40 mg EC 0-29 tablet by ity of tablet 00:00: mouth [place] 00 daily. [facility] potassium 2018-05 Yes [id number] 10meq Take 1 U nivers chloride 10 0-29 tablet by ity of mEq CR 00:00: mouth [place] tablet 00 daily. [facility] albuterol 2018-05 Yes [id number] 2{puff} Inhale 2 [facility] 90 0-29 Puffs ity of mcg/actuati 00:00: every 6 [place] inhaler 00 (six) Medical hours as Branch needed for Wheezing or Shortness of Breath. nitroglycer 2018-05 Yes [id number] 1 tab SL [facility] in 0.4 mg 0-29 q5min up ity of sublingual 00:00: to 3 doses [place] tablet 00 PRN chest Medical pain, then Branch activate 911. DULoxetine 2018-05 Yes [id number] 30mg Take 1 [facility] 30 mg 0-29 capsule by ity of capsule 00:00: mouth [place] 00 daily. [facility] albuterol 2018-05 Yes [id number] 2{puff} Inhale 2 [facility] 90 0-29 Puffs ity of mcg/actuati 00:00: every 6 [place] inhaler 00 (six) Medical hours as Branch needed for Wheezing or Shortness of Breath. nitroglycer 2018-05 Yes [id number] 1 tab SL [facility] in 0.4 mg 0-29 q5min up ity of sublingual 00:00: to 3 doses [place] tablet 00 PRN chest Medical pain, then Branch activate 911. DULoxetine 2018-05 Yes [id number] 30mg Take 1 [facility] 30 mg 0-29 capsule by ity of capsule 00:00: mouth [place] 00 daily. [facility] albuterol 2018-05 Yes [id number] 2{puff} Inhale 2 [facility] 90 0-29 Puffs ity of mcg/actuati 00:00: every 6 [place] on inhaler 00 (six) Medical hours as Branch needed for Wheezing or Shortness of Breath. nitroglycer 2018-05 Yes [id number] 1 tab SL [facility] in 0.4 mg 0-29 q5min up ity of sublingual 00:00: to 3 doses [place] tablet 00 PRN chest Medical pain, then Branch activate 911. albuterol 2018-05 Yes [id number] 2{puff} Inhale 2 [facility] 90 0-29 Puffs ity of mcg/actuati 00:00: every 6 [place] inhaler 00 (six) Medical hours as Branch needed for Wheezing or Shortness of Breath. nitroglycer 2018-05 Yes [id number] 1 tab SL [facility] in 0.4 mg 0-29 q5min up ity of sublingual 00:00: to 3 doses [place] tablet 00 PRN chest Medical pain, then Branch activate 911. albuterol 2018-05 Yes [id number] 2{puff} Inhale 2 [facility] 90 0-29 Puffs ity of mcg/actuati 00:00: every 6 [place] on inhaler 00 (six) Medical hours as Branch needed for Wheezing or Shortness of Breath. nitroglycer 2018-05 Yes [id number] 1 tab SL [facility] in 0.4 mg 0-29 q5min up ity of sublingual 00:00: to 3 doses [place] tablet 00 PRN chest Medical pain, then Branch activate 911. albuterol 2018-05 Yes [id number] 2{puff} Inhale 2 [facility] 90 0-29 Puffs ity of mcg/actuati 00:00: every 6 [place] inhaler 00 (six) Medical hours as Branch needed for Wheezing or Shortness of Breath. nitroglycer 2018-05 Yes [id number] 1 tab SL [facility] in 0.4 mg 0-29 q5min up ity of sublingual 00:00: to 3 doses [place] tablet 00 PRN chest Medical pain, then Branch activate 911. albuterol 2018-05 Yes [id number] 2{puff} Inhale 2 [facility] 90 0-29 Puffs ity of mcg/actuati 00:00: every 6 [place] inhaler 00 (six) Medical hours as Branch needed for Wheezing or Shortness of Breath. nitroglycer 2018-05 Yes [id number] 1 tab SL [facility] in 0.4 mg 0-29 q5min up ity of sublingual 00:00: to 3 doses [place] tablet 00 PRN chest Medical pain, then Branch activate 911. albuterol 2018-05 Yes [id number] 2{puff} Inhale 2 [facility] 90 0-29 Puffs ity of mcg/actuati 00:00: every 6 [place] inhaler 00 (six) Medical hours as Branch needed for Wheezing or Shortness of Breath. nitroglycer 2018-05 Yes [id number] 1 tab SL [facility] in 0.4 mg 0-29 q5min up ity of sublingual 00:00: to 3 doses [place] tablet 00 PRN chest Medical pain, then Branch activate 911. albuterol 2018-05 Yes [id number] 2{puff} Inhale 2 [facility] 90 0-29 Puffs ity of mcg/actuati 00:00: every 6 [place] on inhaler 00 (six) Medical hours as Branch needed for Wheezing or Shortness of Breath. nitroglycer 2018-05 Yes [id number] 1 tab SL [facility] in 0.4 mg 0-29 q5min up [facility] of sublingual 00:00: to 3 doses [place] tablet 00 PRN chest Medical pain, then Branch activate 911. albuterol 2018-05 Yes [id number] 2{puff} Inhale 2 [facility] 90 0-29 Puffs [facility]y of mcg/actuati 00:00: every 6 [place] on inhaler 00 (six) Medical hours as Branch needed for Wheezing or Shortness of Breath. nitroglycer 2018-05 Yes [id number] 1 tab [facility] in 0.4 mg 0-29 q5min up [facility] of sublingual 00:00: to 3 doses [place] tablet 00 PRN chest Medical pain, then Branch activate 911. albuterol 2018-05 Yes [id number] 2{puff} Inhale 2 [facility] 90 0-29 Puffs [facility] of mcg/actuati 00:00: every 6 [place] inhaler 00 (six) Medical hours as Branch needed for Wheezing or Shortness of Breath. nitroglycer 2018-05 Yes [id number] 1 tab [facility] in 0.4 mg 0-29 q5min up [facility] of sublingual 00:00: to 3 doses [place] tablet 00 PRN chest Medical pain, then Branch activate 911. albuterol 2018-05 Yes [id number] 2{puff} Inhale 2 [facility] 90 0-29 Puffs [facility] of mcg/actuati 00:00: every 6 [place] inhaler 00 (six) Medical hours as Branch needed for Wheezing or Shortness of Breath. nitroglycer 2018-05 Yes [id number] 1 tab [facility] in 0.4 mg 0-29 q5min up [facility] of sublingual 00:00: to 3 doses [place] tablet 00 PRN chest Medical pain, then Branch activate 911. albuterol 2018-05 Yes [id number] 2{puff} Inhale 2 [facility] 90 0-29 Puffs [facility] of mcg/actuati 00:00: every 6 [place] inhaler 00 (six) Medical hours as Branch needed for Wheezing or Shortness of Breath. nitroglycer 2018-05 Yes [id number] 1 tab [facility] in 0.4 mg 0-29 q5min up [facility] of sublingual 00:00: to 3 doses [place] tablet 00 PRN chest Medical pain, then Branch activate 911. albuterol 2018-05 Yes [id number] 2{puff} Inhale 2 [facility] 90 0-29 Puffs [facility] of mcg/actuati 00:00: every 6 [place] inhaler 00 (six) Medical hours as Branch needed for Wheezing or Shortness of Breath. nitroglycer 2018-05 Yes [id number] 1 tab [facility] in 0.4 mg 0-29 q5min up [facility] of sublingual 00:00: to 3 doses [place] tablet 00 PRN chest Medical pain, then Branch activate 911. albuterol 2018-05 Yes [id number] 2{puff} Inhale 2 [facility] 90 0-29 Puffs [facility] of mcg/actuati 00:00: every 6 [place] inhaler 00 (six) Medical hours as Branch needed for Wheezing or Shortness of Breath. nitroglycer 2018-05 Yes [id number] 1 tab [facility] in 0.4 mg 0-29 q5min up [facility] of sublingual 00:00: to 3 doses [place] tablet 00 PRN chest Medical pain, then Branch activate 911. albuterol 2018-05 Yes [id number] 2{puff} Inhale 2 [facility] 90 0-29 Puffs [facility] of mcg/actuati 00:00: every 6 [place] inhaler 00 (six) Medical hours as Branch needed for Wheezing or Shortness of Breath. nitroglycer 2018-05 Yes [id number] 1 tab [facility] in 0.4 mg 0-29 q5min up [facility] of sublingual 00:00: to 3 doses [place] tablet 00 PRN chest Medical pain, then Branch activate 911. albuterol 2018-05 Yes [id number] 2{puff} Inhale 2 [facility] 90 0-29 Puffs [facility] of mcg/actuati 00:00: every 6 [place] inhaler 00 (six) Medical hours as Branch needed for Wheezing or Shortness of Breath. nitroglycer 2018-05 Yes [id number] 1 tab [facility] in 0.4 mg 0-29 q5min up [facility] of sublingual 00:00: to 3 doses [place] tablet 00 PRN chest Medical pain, then Branch activate 911. albuterol 2018-05 Yes [id number] 2{puff} Inhale 2 [facility] 90 0-29 Puffs ity of mcg/actuati 00:00: every 6 [place] [facility] [place] inhaler 00 (six) Medical hours as Branch needed for Wheezing or Shortness of Breath. nitroglycer 2018-05 Yes [id number] 1 tab [facility] in 0.4 mg 0-29 q5min up it[facility] of sublingual 00:00: to 3 doses [place] tablet 00 PRN chest Medical pain, then Branch activate 911. albuterol 2018-05 Yes [id number] 2{puff} Inhale 2 [facility] 90 0-29 Puffs ity of mcg/actuati 00:00: every 6 [place] [facility] inhaler 00 (six) Medical hours as Branch needed for Wheezing or Shortness of Breath. nitroglycer 2018-05 Yes [id number] 1 tab [facility] in 0.4 mg 0-29 q5min up it[facility] of sublingual 00:00: to 3 doses [place] tablet 00 PRN chest Medical pain, then Branch activate 911. albuterol 2018-05 Yes [id number] 2{puff} Inhale 2 [facility] 90 0-29 Puffs ity of mcg/actuati 00:00: every 6 [place] [facility] [place] inhaler 00 (six) Medical hours as Branch needed for Wheezing or Shortness of Breath. nitroglycer 2018-05 Yes [id number] 1 tab [facility] in 0.4 mg 0-29 q5min up it[facility] of sublingual 00:00: to 3 doses [place] tablet 00 PRN chest Medical pain, then Branch activate 911. albuterol 2018-05 Yes [id number] 2{puff} Inhale 2 [facility] 90 0-29 Puffs ity of mcg/actuati 00:00: every 6 [place] [facility] inhaler 00 (six) Medical hours as Branch needed for Wheezing or Shortness of Breath. nitroglycer 2018-05 Yes [id number] 1 tab [facility] in 0.4 mg 0-29 q5min up it[facility] of sublingual 00:00: to 3 doses [place] tablet 00 PRN chest Medical pain, then Branch activate 911. albuterol 2018-05 Yes [id number] 2{puff} Inhale 2 [facility] 90 0-29 Puffs ity of mcg/actuati 00:00: every 6 [place] [facility] on inhaler 00 (six) Medical hours as Branch needed for Wheezing or Shortness of Breath. nitroglycer 2018-05 Yes [id number] 1 tab [facility] in 0.4 mg 0-29 q5min up ity of sublingual 00:00: to 3 doses [place] tablet 00 PRN chest Medical pain, then Branch activate 911. albuterol 2018-05 Yes [id number] 2{puff} Inhale 2 [facility] 90 0-29 Puffs ity of mcg/actuati 00:00: every 6 [place] [facility] on inhaler 00 (six) Medical hours as Branch needed for Wheezing or Shortness of Breath. nitroglycer 2018-05 Yes [id number] 1 tab [facility] in 0.4 mg 0-29 q5min up it[facility] of sublingual 00:00: to 3 doses [place] tablet 00 PRN chest Medical pain, then Branch activate 911. albuterol 2018-05 Yes [id number] 2{puff} Inhale 2 [facility] 90 0-29 Puffs ity of mcg/actuati 00:00: every 6 [place] [facility] on inhaler 00 (six) Medical hours as Branch needed for Wheezing or Shortness of Breath. nitroglycer 2018-05 Yes [id number] 1 tab [facility] in 0.4 mg 0-29 q5min up it[facility] of sublingual 00:00: to 3 doses [place] tablet 00 PRN chest Medical pain, then Branch activate 911. albuterol 2018-05 Yes [id number] 2{puff} Inhale 2 [facility] 90 0-29 Puffs ity of mcg/actuati 00:00: every 6 [place] [facility] on inhaler 00 (six) Medical hours as Branch needed for Wheezing or Shortness of Breath. nitroglycer 2018-05 Yes [id number] 1 tab [facility] in 0.4 mg 0-29 q5min up it[facility] of sublingual 00:00: to 3 doses [place] tablet 00 PRN chest Medical pain, then Branch activate 911. albuterol 2018-05 Yes [id number] 2{puff} Inhale 2 [facility] 90 0-29 Puffs ity of mcg/actuati 00:00: every 6 [place] [facility] on inhaler 00 (six) Medical hours as Branch needed for Wheezing or Shortness of Breath. nitroglycer 2018-05 Yes [id number] 1 tab [facility] in 0.4 mg 0-29 q5min up it[facility] of sublingual 00:00: to 3 doses [place] tablet 00 PRN chest Medical pain, then Branch activate 911. nitroglycer 2018-05 Yes [id number] 1 tab [facility] in 0.4 mg 0-29 q5min up ity of sublingual 00:00: to 3 doses [place] tablet 00 PRN chest Medical pain, then Branch activate 911. nitroglycer 2018-05 Yes [id number] 1 tab [facility] in 0.4 mg 0-29 q5min up ity of sublingual 00:00: to 3 doses [place] tablet 00 PRN chest Medical pain, then Branch activate 911. nitroglycer 2018-05 Yes [id number] 1 tab [facility] in 0.4 mg 0-29 q5min up it[facility] of sublingual 00:00: to 3 doses [place] tablet 00 PRN chest Medical pain, then Branch activate 911. nitroglycer 2018-05 Yes [id number] 1 tab [facility] in 0.4 mg 0-29 q5min up ity of sublingual 00:00: to 3 doses [place] tablet 00 PRN chest Medical pain, then Branch activate 911. nitroglycer 2018-05 Yes [id number] 1 tab [facility] in 0.4 mg 0-29 q5min up ity of sublingual 00:00: to 3 doses [place] tablet 00 PRN chest Medical pain, then Branch activate 911. nitroglycer 2018-05 Yes [id number] 1 tab [facility] in 0.4 mg 0-29 q5min up ity of sublingual 00:00: to 3 doses [place] tablet 00 PRN chest Medical pain, then Branch activate 911. nitroglycer 2018-05 Yes [id number] 1 tab [facility] in 0.4 mg 0-29 q5min up ity of sublingual 00:00: to 3 doses [place] tablet 00 PRN chest Medical pain, then Branch activate 911. nitroglycer 2018-05 Yes [id number] 1 tab [facility] in 0.4 mg 0-29 q5min up it[facility] of sublingual 00:00: to 3 doses [place] tablet 00 PRN chest Medical pain, then Branch activate 911. nitroglycer 2018-05 Yes [id number] 1 tab [facility] in 0.4 mg 0-29 q5min up it[facility] of sublingual 00:00: to 3 doses [place] tablet 00 PRN chest Medical pain, then Branch activate 911. nitroglycer 2018-05 Yes [id number] 1 tab [facility] in 0.4 mg 0-29 q5min up ity of sublingual 00:00: to 3 doses [place] tablet 00 PRN chest Medical pain, then Branch activate 911. nitroglycer 2018-05 Yes [id number] 1 tab [facility] in 0.4 mg 0-29 q5min up it[facility] of sublingual 00:00: to 3 doses [place] tablet 00 PRN chest Medical pain, then Branch activate 911. nitroglycer 2018-05 Yes [id number] 1 tab [facility] in 0.4 mg 0-29 q5min up ity of sublingual 00:00: to 3 doses [place] tablet 00 PRN chest Medical pain, then Branch activate 911. nitroglycer 2018-05 Yes [id number] 1 tab [facility] in 0.4 mg 0-29 q5min up it[facility] of sublingual 00:00: to 3 doses [place] tablet 00 PRN chest Medical pain, then Branch activate 911. nitroglycer 2018-05 Yes [id number] 1 tab [facility] in 0.4 mg 0-29 q5min up ity of sublingual 00:00: to 3 doses [place] tablet 00 PRN chest Medical pain, then Branch activate 911. nitroglycer 2018-05 Yes [id number] 1 tab [facility] in 0.4 mg 0-29 q5min up ity of sublingual 00:00: to 3 doses [place] tablet 00 PRN chest Medical pain, then Branch activate 911. nitroglycer 2018-05 Yes [id number] 1 tab [facility] in 0.4 mg 0-29 q5min up it[facility] of sublingual 00:00: to 3 doses [place] tablet 00 PRN chest Medical pain, then Branch activate 911. nitroglycer 2018-05 Yes [id number] 1 tab [facility] in 0.4 mg 0-29 q5min up ity of sublingual 00:00: to 3 doses [place] tablet 00 PRN chest Medical pain, then Branch activate 911. nitroglycer 2018-05 Yes [id number] 1 tab [facility] in 0.4 mg 0-29 q5min up ity of sublingual 00:00: to 3 doses [place] tablet 00 PRN chest Medical pain, then Branch activate 911. nitroglycer 2018-05 Yes [id number] 1 tab [facility] in 0.4 mg 0-29 q5min up ity of sublingual 00:00: to 3 doses [place] tablet 00 PRN chest Medical pain, then Branch activate 911. nitroglycer 2018-05 Yes [id number] 1 tab [facility] in 0.4 mg 0-29 q5min up ity of sublingual 00:00: to 3 doses [place] tablet 00 PRN chest Medical pain, then Branch activate 911. nitroglycer 2018-05 Yes [id number] 1 tab [facility] in 0.4 mg 0-29 q5min up ity of sublingual 00:00: to 3 doses [place] tablet 00 PRN chest Medical pain, then Branch activate 911. nitroglycer 2018-05 Yes [id number] 1 tab [facility] in 0.4 mg 0-29 q5min up ity of sublingual 00:00: to 3 doses [place] tablet 00 PRN chest Medical pain, then Branch activate 911. nitroglycer 2018-05 Yes [id number] 1 tab [facility] in 0.4 mg 0-29 q5min up ity of sublingual 00:00: to 3 doses [place] tablet 00 PRN chest Medical pain, then Branch activate 911. nitroglycer 2018-05 Yes [id number] 1 tab [facility] in 0.4 mg 0-29 q5min up ity of sublingual 00:00: to 3 doses [place] tablet 00 PRN chest Medical pain, then Branch activate 911. nitroglycer 2018-05 Yes [id number] 1 tab [facility] in 0.4 mg 0-29 q5min up ity of sublingual 00:00: to 3 doses [place] tablet 00 PRN chest Medical pain, then Branch activate 911. nitroglycer 2018-05 Yes [id number] 1 tab [facility] in 0.4 mg 0-29 q5min up ity of sublingual 00:00: to 3 doses [place] tablet 00 PRN chest Medical pain, then Branch activate 911. nitroglycer 2018-05 Yes [id number] 1 tab [facility] in 0.4 mg 0-29 q5min up ity of sublingual 00:00: to 3 doses [place] tablet 00 PRN chest Medical pain, then Branch activate 911. nitroglycer 2018-05 Yes [id number] 1 tab [facility] in 0.4 mg 0-29 q5min up ity of sublingual 00:00: to 3 doses [place] tablet 00 PRN chest Medical pain, then Branch activate 911. nitroglycer 2018-05 Yes [id number] 1 tab [facility] in 0.4 mg 0-29 q5min up ity of sublingual 00:00: to 3 doses [place] tablet 00 PRN chest Medical pain, then Branch activate 911. nitroglycer 2018-05 Yes [id number] 1 tab [facility] in 0.4 mg 0-29 q5min up ity of sublingual 00:00: to 3 doses [place] tablet 00 PRN chest Medical pain, then Branch activate 911. nitroglycer 2018-05 Yes [id number] 1 tab [facility] in 0.4 mg 0-29 q5min up ity of sublingual 00:00: to 3 doses [place] tablet 00 PRN chest Medical pain, then Branch activate 911. nitroglycer 2018-05 Yes [id number] 1 tab [facility] in 0.4 mg 0-29 q5min up ity of sublingual 00:00: to 3 doses [place] tablet 00 PRN chest Medical pain, then Branch activate 911. nitroglycer 2018-05 Yes [id number] 1 tab [facility] in 0.4 mg 0-29 q5min up ity of sublingual 00:00: to 3 doses [place] tablet 00 PRN chest Medical pain, then Branch activate 911. nitroglycer 2018-05 Yes [id number] 1 tab [facility] in 0.4 mg 0-29 q5min up ity of sublingual 00:00: to 3 doses [place] tablet 00 PRN chest Medical pain, then Branch activate 911. nitroglycer 2018-05 Yes [id number] 1 tab [facility] in 0.4 mg 0-29 q5min up ity of sublingual 00:00: to 3 doses [place] tablet 00 PRN chest Medical pain, then Branch activate 911. nitroglycer 2018-05 Yes [id number] 1 tab [facility] in 0.4 mg 0-29 q5min up ity of sublingual 00:00: to 3 doses [place] tablet 00 PRN chest Medical pain, then Branch activate 911. nitroglycer 2018-05 Yes [id number] 1 tab [facility] in 0.4 mg 0-29 q5min up ity of sublingual 00:00: to 3 doses [place] tablet 00 PRN chest Medical pain, then Branch activate 911. nitroglycer 2018-05 Yes [id number] 1 tab [facility] in 0.4 mg 0-29 q5min up ity of sublingual 00:00: to 3 doses [place] tablet 00 PRN chest Medical pain, then Branch activate 911. nitroglycer 2018-05 Yes [id number] 1 tab [facility] in 0.4 mg 0-29 q5min up ity of sublingual 00:00: to 3 doses [place] tablet 00 PRN chest Medical pain, then Branch activate 911. nitroglycer 2018-05 Yes [id number] 1 tab [facility] in 0.4 mg 0-29 q5min up ity of sublingual 00:00: to 3 doses [place] tablet 00 PRN chest Medical pain, then Branch activate 911. nitroglycer 2018-05 Yes [id number] 1 tab [facility] in 0.4 mg 0-29 q5min up ity of sublingual 00:00: to 3 doses [place] tablet 00 PRN chest Medical pain, then Branch activate 911. nitroglycer 2018-05 Yes [id number] 1 tab [facility] in 0.4 mg 0-29 q5min up ity of sublingual 00:00: to 3 doses [place] tablet 00 PRN chest Medical pain, then Branch activate 911. nitroglycer 2018-05 Yes [id number] 1 tab [facility] in 0.4 mg 0-29 q5min up ity of sublingual 00:00: to 3 doses [place] tablet 00 PRN chest Medical pain, then Branch activate 911. nitroglycer 2018-05 Yes [id number] 1 tab [facility] in 0.4 mg 0-29 q5min up ity of sublingual 00:00: to 3 doses [place] tablet 00 PRN chest Medical pain, then Branch activate 911. nitroglycer 2018-05 Yes [id number] 1 tab [facility] in 0.4 mg 0-29 q5min up ity of sublingual 00:00: to 3 doses [place] tablet 00 PRN chest Medical pain, then Branch activate 911. nitroglycer 2018-05 Yes [id number] 1 tab [facility] in 0.4 mg 0-29 q5min up ity of sublingual 00:00: to 3 doses [place] tablet 00 PRN chest Medical pain, then Branch activate 911. nitroglycer 2018-05 Yes [id number] 1 tab [facility] in 0.4 mg 0-29 q5min up ity of sublingual 00:00: to 3 doses [place] tablet 00 PRN chest Medical pain, then Branch activate 911. atorvastati 2018-05 Yes [id number] 40mg Take 1 [facility] n (LIPITOR) 0-29 tablet by ity of 40 mg 00:00: mouth at [place] tablet 00 bedtime. [facility] clopidogrel 2018-05 Yes [id number] 75mg Take 1 [facility] (PLAVIX) 75 0-29 tablet by ity of mg tablet 00:00: mouth [place] 00 daily. [facility] DULoxetine 2018-05 Yes [id number] 30mg Take 1 [facility] 30 mg 0-29 capsule by ity of capsule 00:00: mouth [place] 00 daily. [facility] pantoprazol 2018-05 Yes [id number] 40mg Take 1 [facility] e 40 mg EC 0-29 tablet by ity of tablet 00:00: mouth [place] 00 daily. [facility] potassium 2018-05 Yes [id number] 10meq Take 1 [facility] n[facility] chloride 10 0-29 tablet by ity of mEq CR 00:00: mouth [place] tablet 00 daily. [facility] albuterol 2018-05 Yes [id number] 2{puff} Inhale 2 [facility] 90 0-29 Puffs ity of mcg/actuati 00:00: every 6 [place] [facility] on inhaler 00 (six) Medical hours as Branch needed for Wheezing or Shortness of Breath. nitroglycer 2018-05 Yes [id number] 1 tab [facility] in 0.4 mg 0-29 q5min up ity of sublingual 00:00: to 3 doses [place] tablet 00 PRN chest Medical pain, then Branch activate 911. atorvastati 2018-05 Yes [id number] 40mg Take 1 [facility] n (LIPITOR) 0-29 tablet by ity of 40 mg 00:00: mouth at [place] tablet 00 bedtime. [facility] clopidogrel 2018-05 Yes [id number] 75mg Take 1 [facility] (PLAVIX) 75 0-29 tablet by ity of mg tablet 00:00: mouth [place] 00 daily. [facility] DULoxetine 2018-05 Yes [id number] 30mg Take 1 [facility] 30 mg 0-29 capsule by ity of capsule 00:00: mouth [place] 00 daily. [facility] pantoprazol 2018-05 Yes [id number] 40mg Take 1 [facility] e 40 mg EC 0-29 tablet by ity of tablet 00:00: mouth [place] 00 daily. [facility] potassium 2018-05 Yes [id number] 10meq Take 1 [facility] chloride 10 0-29 tablet by ity of mEq CR 00:00: mouth [place] tablet 00 daily. [facility] albuterol 2018-05 Yes [id number] 2{puff} Inhale 2 [facility] 90 0-29 Puffs ity of mcg/actuati 00:00: every 6 [place] [facility] on inhaler 00 (six) Medical hours as Branch needed for Wheezing or Shortness of Breath. nitroglycer 2018-05 Yes [id number] 1 tab [facility] in 0.4 mg 0-29 q5min up ity of sublingual 00:00: to 3 doses [place] tablet 00 PRN chest Medical pain, then Branch activate 911. atorvastati 2018-05 Yes [id number] 40mg Take 1 [facility] n (LIPITOR) 0-29 tablet by ity of 40 mg 00:00: mouth at [place] tablet 00 bedtime. [facility] clopidogrel 2018-05 Yes [id number] 75mg Take 1 [facility] (PLAVIX) 75 0-29 tablet by ity of mg tablet 00:00: mouth [place] 00 daily. [facility] DULoxetine 2018-05 Yes [id number] 30mg Take 1 [facility] 30 mg 0-29 capsule by ity of capsule 00:00: mouth [place] 00 daily. [facility] pantoprazol 2018-05 Yes [id number] 40mg Take 1 [facility] e 40 mg EC 0-29 tablet by [facility]y of tablet 00:00: mouth [place] 00 daily. [facility] potassium 2018-05 Yes [id number] 10meq Take 1 [facility] chloride 10 0-29 tablet by ity of mEq CR 00:00: mouth [place] tablet 00 daily. [facility] albuterol 2018-05 Yes [id number] 2{puff} Inhale 2 [facility] 90 0-29 Puffs ity of mcg/actuati 00:00: every 6 [place] [facility] on inhaler 00 (six) Medical hours as Branch needed for Wheezing or Shortness of Breath. nitroglycer 2018-05 Yes [id number] 1 tab [facility] in 0.4 mg 0-29 q5min up ity of sublingual 00:00: to 3 doses [place] tablet 00 PRN chest Medical pain, then Branch activate 911. atorvastati 2018-05 Yes [id number] 40mg Take 1 [facility] n (LIPITOR) 0-29 tablet by ity of 40 mg 00:00: mouth at [place] tablet 00 bedtime. [facility] clopidogrel 2018-05 Yes [id number] 75mg Take 1 [facility] (PLAVIX) 75 0-29 tablet by ity of mg tablet 00:00: mouth [place] 00 daily. [facility] DULoxetine 2018-05 Yes [id number] 30mg Take 1 [facility] 30 mg 0-29 capsule by ity of capsule 00:00: mouth [place] 00 daily. [facility] pantoprazol 2018-05 Yes [id number] 40mg Take 1 [facility] e 40 mg EC 0-29 tablet by [facility]y of tablet 00:00: mouth [place] 00 daily. [facility] potassium 2018-05 Yes [id number] 10meq Take 1 [facility] chloride 10 0-29 tablet by ity of mEq CR 00:00: mouth [place] tablet 00 daily. [facility] albuterol 2018-05 Yes [id number] 2{puff} Inhale 2 [facility] 90 0-29 Puffs ity of mcg/actuati 00:00: every 6 [place] [facility] on inhaler 00 (six) Medical hours as Branch needed for Wheezing or Shortness of Breath. nitroglycer 2018-05 Yes [id number] 1 tab [facility] in 0.4 mg 0-29 q5min up ity of sublingual 00:00: to 3 doses [place] tablet 00 PRN chest Medical pain, then Branch activate 911. atorvastati 2018-05 Yes [id number] 40mg Take 1 [facility] n (LIPITOR) 0-29 tablet by ity of 40 mg 00:00: mouth at [place] tablet 00 bedtime. [facility] clopidogrel 2018-05 Yes [id number] 75mg Take 1 [facility] (PLAVIX) 75 0-29 tablet by ity of mg tablet 00:00: mouth [place] 00 daily. [facility] DULoxetine 2018-05 Yes [id number] 30mg Take 1 [facility] 30 mg 0-29 capsule by ity of capsule 00:00: mouth [place] 00 daily. [facility] pantoprazol 2018-05 Yes [id number] 40mg Take 1 [facility] e 40 mg EC 0-29 tablet by [facility]y of tablet 00:00: mouth [place] 00 daily. [facility] potassium 2018-05 Yes [id number] 10meq Take 1 [facility] chloride 10 0-29 tablet by ity of mEq CR 00:00: mouth [place] tablet 00 daily. [facility] albuterol 2018-05 Yes [id number] 2{puff} Inhale 2 [facility] 90 0-29 Puffs ity of mcg/actuati 00:00: every 6 [place] [facility] on inhaler 00 (six) Medical hours as Branch needed for Wheezing or Shortness of Breath. nitroglycer 2018-05 Yes [id number] 1 tab [facility] in 0.4 mg 0-29 q5min up ity of sublingual 00:00: to 3 doses [place] tablet 00 PRN chest Medical pain, then Branch activate 911. atorvastati 2018-05 Yes [id number] 40mg Take 1 [facility] n (LIPITOR) 0-29 tablet by ity of 40 mg 00:00: mouth at [place] tablet 00 bedtime. [facility] clopidogrel 2018-05 Yes [id number] 75mg Take 1 [facility] (PLAVIX) 75 0-29 tablet by ity of mg tablet 00:00: mouth [place] 00 daily. [facility] DULoxetine 2018-05 Yes [id number] 30mg Take 1 [facility] 30 mg 0-29 capsule by ity of capsule 00:00: mouth [place] 00 daily. [facility] pantoprazol 2018-05 Yes [id number] 40mg Take 1 [facility] e 40 mg EC 0-29 tablet by ity of tablet 00:00: mouth [place] 00 daily. [facility] potassium 2018-05 Yes [id number] 10meq Take 1 [facility] n[facility] chloride 10 0-29 tablet by ity of mEq CR 00:00: mouth [place] tablet 00 daily. [facility] albuterol 2018-05 Yes [id number] 2{puff} Inhale 2 [facility] 90 0-29 Puffs ity of mcg/actuati 00:00: every 6 [place] on inhaler 00 (six) Medical hours as Branch needed for Wheezing or Shortness of Breath. nitroglycer 2018-05 Yes [id number] 1 tab [facility] in 0.4 mg 0-29 q5min up ity of sublingual 00:00: to 3 doses [place] tablet 00 PRN chest Medical pain, then Branch activate 911. atorvastati 2018-05 Yes [id number] 40mg Take 1 [facility] n (LIPITOR) 0-29 tablet by ity of 40 mg 00:00: mouth at [place] tablet 00 bedtime. [facility] clopidogrel 2018-05 Yes [id number] 75mg Take 1 [facility] (PLAVIX) 75 0-29 tablet by ity of mg tablet 00:00: mouth [place] 00 daily. [facility] DULoxetine 2018-05 Yes [id number] 30mg Take 1 [facility] 30 mg 0-29 capsule by ity of capsule 00:00: mouth [place] 00 daily. [facility] pantoprazol 2018-05 Yes [id number] 40mg Take 1 [facility] e 40 mg EC 0-29 tablet by ity of tablet 00:00: mouth [place] 00 daily. [facility] potassium 2018-05 Yes [id number] 10meq Take 1 [facility] n[facility] chloride 10 0-29 tablet by ity of mEq CR 00:00: mouth [place] tablet 00 daily. [facility] albuterol 2018-05 Yes [id number] 2{puff} Inhale 2 [facility] 90 0-29 Puffs ity of mcg/actuati 00:00: every 6 [place] inhaler 00 (six) Medical hours as Branch needed for Wheezing or Shortness of Breath. nitroglycer 2018-05 Yes [id number] 1 tab [facility] in 0.4 mg 0-29 q5min up ity of sublingual 00:00: to 3 doses [place] tablet 00 PRN chest Medical pain, then Branch activate 911. DULoxetine 2018-05 Yes [id number] 30mg Take 1 [facility] 30 mg 0-29 capsule by ity of capsule 00:00: mouth [place] 00 daily. [facility] pantoprazol 2018-05 Yes [id number] 40mg Take 1 [facility] e 40 mg EC 0-29 tablet by [facility]y of tablet 00:00: mouth [place] 00 daily. [facility] potassium 2018-05 Yes [id number] 10meq Take 1 [facility] n[facility] chloride 10 0-29 tablet by ity of mEq CR 00:00: mouth [place] tablet 00 daily. [facility] albuterol 2018-05 Yes [id number] 2{puff} Inhale 2 [facility] 90 0-29 Puffs ity of mcg/actuati 00:00: every 6 [place] inhaler 00 (six) Medical hours as Branch needed for Wheezing or Shortness of Breath. nitroglycer 2018-05 Yes [id number] 1 tab [facility] in 0.4 mg 0-29 q5min up ity of sublingual 00:00: to 3 doses [place] tablet 00 PRN chest Medical pain, then Branch activate 911. DULoxetine 2018-05 Yes [id number] 30mg Take 1 [facility] 30 mg 0-29 capsule by ity of capsule 00:00: mouth [place] 00 daily. [facility] pantoprazol 2018-05 Yes [id number] 40mg Take 1 [facility] e 40 mg EC 0-29 tablet by [facility]y of tablet 00:00: mouth [place] 00 daily. [facility] potassium 2018-05 Yes [id number] 10meq Take 1 [facility] chloride 10 0-29 tablet by [facility]y of mEq CR 00:00: mouth [place] tablet 00 daily. [facility] albuterol 2018-05 Yes [id number] 2{puff} Inhale 2 [facility] 90 0-29 Puffs ity of mcg/actuati 00:00: every 6 [place] inhaler 00 (six) Medical hours as Branch needed for Wheezing or Shortness of Breath. nitroglycer 2018-05 Yes [id number] 1 tab [facility] in 0.4 mg 0-29 q5min up ity of sublingual 00:00: to 3 doses [place] tablet 00 PRN chest Medical pain, then Branch activate 911. DULoxetine 2018-05 Yes [id number] 30mg Take 1 [facility] 30 mg 0-29 [...] Bran ch activate 911. albuterol 2018-05- No [id number] 2{puff} Inhale 2 [facility] 90 0-29 12-19 Puffs ity of mcg/actuati 00:00: 00:00 every 6 [place] on inhaler 00 :00 (six) Medical hours as Branch needed for Wheezing or Shortness of Breath. albuterol 2018-05 2020- No [id number] 2{puff} Inhale 2 [facility] 90 0-29 12-19 Puffs ity of mcg/actuati 00:00: 00:00 every 6 [place] inhaler 00 :00 (six) Medical hours as Branch needed for Wheezing or Shortness of Breath. pantoprazol 2018-05 2020- No [id number] 40mg Take 1 [facility] e 40 mg EC -08 tablet by ity of tablet 00:00: 00:00 mouth [place] 00 :00 daily. Medical Branch potassium 2018-05 2020- No [id number] 10meq Take 1 [facility] chloride 10 -08 tablet by it y of mEq CR 00:00: 00:00 mouth [place] tablet 00 :00 daily. Medical Branch atorvastati 2018-05 2020- No [id number] 40mg Take 1 [facility] n (LIPITOR) 03-20 tablet by it y of 40 mg 00:00: 00:00 mouth at [place] tablet 00 :00 bedtime. Medical Branch clopidogrel 2018-05 2020- No [id number] 75mg Take 1 [facility] (PLAVIX) 75 0-29 [...] mouth ity of LOW DOSE) 15:12: daily. [place] 81 mg EC 10 Medical tablet Branch [...] 10 Medical tablet Branch atorvastati 0 Yes [id number] 40mg Take 1 [facility] n (LIPITOR) 7-05 tablet by ity of 40 mg 00:00: mouth at [place] tablet 00 bedtime. Medical Branch DULoxetine 2019-0 Yes [id number] 30mg Take 1 [facility] 30 mg 7-05 capsule by ity of capsule 00:00: mouth [place] 00 daily. Medical Branch clopidogrel 2018- Yes [id number] 75mg Take 1 [facility] (PLAVIX) 75 7-05 tablet by ity of mg tablet 00:00: mouth [place] 00 daily. Medical Branch furosemide 2019-0 Yes [id number] 20mg Take 1 [facility] (LASIX) 20 7-05 tablet by ity of mg tablet 00:00: mouth [place] 00 daily. Medical Branch isosorbide 2019- Yes [id number] 30mg Take 1 [facility] mononitrate 7-05 tablet by ity of 30 mg 24 hr 00:00: mouth [place] tablet 00 daily. Medical Branch metoprolol 2019 Yes [id number] 25mg Take 1 [facility] nivers tartrate 25 7-05 tablet by ity of mg tablet 00:00: mouth [place] 00 daily. Medical Branch fluconazole 2019- Yes [id number] 150mg Take 1 [facility] (DIFLUCAN) 7-05 tablet by ity of 150 mg 00:00: mouth [place] tablet 00 SEE-INSTRU Medical CTIONS. 1 Branch PO weekly/PRN yeast infection atorvastati Yes [id number] 40mg Take 1 [facility] n (LIPITOR) 7-05 tablet by ity of 40 mg 00:00: mouth at [place] tablet 00 bedtime. Medical Branch DULoxetine Yes [id number] 30mg Take 1 [facility] n[facility] 30 mg 7-05 capsule by ity of capsule 00:00: mouth [place] 00 daily. Medical Branch clopidogrel Yes [id number] 75mg Take 1 [facility] (PLAVIX) 75 7-05 tablet by ity of mg tablet 00:00: mouth [place] 00 daily. Medical Branch furosemide Yes [id number] 20mg Take 1 [facility] nivers (LASIX) 20 7-05 tablet by ity of mg tablet 00:00: mouth [place] 00 daily. Medical Branch isosorbide Yes [id number] 30mg Take 1 [facility] mononitrate 7-05 tablet by ity of 30 mg 24 hr 00:00: mouth [place] tablet 00 daily. Medical Branch metoprolol Yes [id number] 25mg Take 1 [facility] nivers tartrate 25 7-05 tablet by ity of mg tablet 00:00: mouth [place] 00 daily. Medical Branch fluconazole Yes [id number] 150mg Take 1 [facility] (DIFLUCAN) 7-05 tablet by ity of 150 mg 00:00: mouth [place] tablet 00 SEE-INSTRU Medical CTIONS. 1 Branch PO weekly/PRN yeast infection atorvastati Yes [id number] 40mg Take 1 [facility] n (LIPITOR) 7-05 tablet by ity of 40 mg 00:00: mouth at [place] tablet 00 bedtime. Medical Branch DULoxetine Yes [id number] 30mg Take 1 [facility] nivers 30 mg 7-05 capsule by ity of capsule 00:00: mouth [place] 00 daily. Medical Branch clopidogrel Yes [id number] 75mg Take 1 [facility] (PLAVIX) 75 7-05 tablet by ity of mg tablet 00:00: mouth [place] 00 daily. Medical Branch furosemide 2019-0 Yes [id number] 20mg Take 1 [facility] n[facility] (LASIX) 20 7-05 tablet by ity of mg tablet 00:00: mouth [place] 00 daily. Medical Branch isosorbide 2019- Yes [id number] 30mg Take 1 [facility] mononitrate 7-05 tablet by ity of 30 mg 24 hr 00:00: mouth [place] tablet 00 daily. Medical Branch metoprolol 2019- Yes [id number] 25mg Take 1 [facility] nivers tartrate 25 7-05 tablet by ity of mg tablet 00:00: mouth [place] 00 daily. Medical Branch fluconazole 2019- Yes [id number] 150mg Take 1 [facility] (DIFLUCAN) 7-05 tablet by ity of 150 mg 00:00: mouth [place] tablet 00 SEE-INSTRU Medical CTIONS. 1 Branch PO weekly/PRN yeast infection atorvastati 2019-0 Yes [id number] 40mg Take 1 [facility] n (LIPITOR) 7-05 tablet by ity of 40 mg 00:00: mouth at [place] tablet 00 bedtime. Medical Branch DULoxetine 2019- Yes [id number] 30mg Take 1 [facility] nivers 30 mg 7-05 capsule by ity of capsule 00:00: mouth [place] 00 daily. Medical Branch clopidogrel 2019-0 Yes [id number] 75mg Take 1 [facility] (PLAVIX) 75 7-05 tablet by ity of mg tablet 00:00: mouth [place] 00 daily. Medical Branch furosemide 2019- Yes [id number] 20mg Take 1 [facility] nivers (LASIX) 20 7-05 tablet by ity of mg tablet 00:00: mouth [place] 00 daily. Medical Branch isosorbide 2019- Yes [id number] 30mg Take 1 [facility] mononitrate 7-05 tablet by ity of 30 mg 24 hr 00:00: mouth [place] tablet 00 daily. Medical Branch metoprolol 2019- Yes [id number] 25mg Take 1 [facility] nivers tartrate 25 7-05 tablet by ity of mg tablet 00:00: mouth [place] 00 daily. Medical Branch fluconazole 2019-0 Yes [id number] 150mg Take 1 [facility] (DIFLUCAN) 7-05 tablet by ity of 150 mg 00:00: mouth [place] tablet 00 SEE-INSTRU Medical CTIONS. 1 Branch PO weekly/PRN yeast infection atorvastati 2019- Yes [id number] 40mg Take 1 [facility] n (LIPITOR) 7-05 tablet by ity of 40 mg 00:00: mouth at [place] tablet 00 bedtime. Medical Branch DULoxetine 2019 Yes [id number] 30mg Take 1 [facility] nivers 30 mg 7-05 capsule by ity of capsule 00:00: mouth [place] 00 daily. Medical Branch clopidogrel Yes [id number] 75mg Take 1 [facility] (PLAVIX) 75 7-05 tablet by ity of mg tablet 00:00: mouth [place] 00 daily. Medical Branch furosemide Yes [id number] 20mg Take 1 [facility] nivers (LASIX) 20 7-05 tablet by ity of mg tablet 00:00: mouth [place] 00 daily. Medical Branch isosorbide Yes [id number] 30mg Take 1 [facility] mononitrate 7-05 tablet by ity of 30 mg 24 hr 00:00: mouth [place] tablet 00 daily. Medical Branch metoprolol Yes [id number] 25mg Take 1 [facility] nivers tartrate 25 7-05 tablet by ity of mg tablet 00:00: mouth [place] 00 daily. Medical Branch fluconazole Yes [id number] 150mg Take 1 [facility] (DIFLUCAN) 7-05 tablet by ity of 150 mg 00:00: mouth [place] tablet 00 SEE-INSTRU Medical CTIONS. 1 Branch PO weekly/PRN yeast infection atorvastati Yes [id number] 40mg Take 1 [facility] n (LIPITOR) 7-05 tablet by ity of 40 mg 00:00: mouth at [place] tablet 00 bedtime. Medical Branch DULoxetine Yes [id number] 30mg Take 1 [facility] nivers 30 mg 7-05 capsule by ity of capsule 00:00: mouth [place] 00 daily. Medical Branch clopidogrel Yes [id number] 75mg Take 1 [facility] (PLAVIX) 75 7-05 tablet by ity of mg tablet 00:00: mouth [place] 00 daily. Medical Branch furosemide Yes [id number] 20mg Take 1 [facility] n[facility] (LASIX) 20 7-05 tablet by ity of mg tablet 00:00: mouth [place] 00 daily. Medical Branch isosorbide Yes [id number] 30mg Take 1 [facility] mononitrate 7-05 tablet by ity of 30 mg 24 hr 00:00: mouth [place] tablet 00 daily. Medical Branch metoprolol 2019 Yes [id number] 25mg Take 1 [facility] nivers tartrate 25 7-05 tablet by ity of mg tablet 00:00: mouth [place] 00 daily. Medical Branch fluconazole 2019- Yes [id number] 150mg Take 1 [facility] (DIFLUCAN) 7-05 tablet by ity of 150 mg 00:00: mouth [place] tablet 00 SEE-INSTRU Medical CTIONS. 1 Branch PO weekly/PRN yeast infection atorvastati Yes [id number] 40mg Take 1 [facility] n (LIPITOR) 7-05 tablet by ity of 40 mg 00:00: mouth at [place] tablet 00 bedtime. Medical Branch DULoxetine Yes [id number] 30mg Take 1 [facility] n[facility] 30 mg 7-05 capsule by ity of capsule 00:00: mouth [place] 00 daily. Medical Branch clopidogrel Yes [id number] 75mg Take 1 [facility] (PLAVIX) 75 7-05 tablet by ity of mg tablet 00:00: mouth [place] 00 daily. Medical Branch furosemide Yes [id number] 20mg Take 1 [facility] n[facility] (LASIX) 20 7-05 tablet by ity of mg tablet 00:00: mouth [place] 00 daily. Medical Branch isosorbide Yes [id number] 30mg Take 1 [facility] mononitrate 7-05 tablet by ity of 30 mg 24 hr 00:00: mouth [place] tablet 00 daily. Medical Branch metoprolol Yes [id number] 25mg Take 1 [facility] nivers tartrate 25 7-05 tablet by ity of mg tablet 00:00: mouth [place] 00 daily. Medical Branch fluconazole Yes [id number] 150mg Take 1 [facility] (DIFLUCAN) 7-05 tablet by ity of 150 mg 00:00: mouth [place] tablet 00 SEE-INSTRU Medical CTIONS. 1 Branch PO weekly/PRN yeast infection atorvastati Yes [id number] 40mg Take 1 [facility] n (LIPITOR) 7-05 tablet by ity of 40 mg 00:00: mouth at [place] tablet 00 bedtime. Medical Branch DULoxetine Yes [id number] 30mg Take 1 [facility] n[facility] 30 mg 7-05 capsule by ity of capsule 00:00: mouth [place] 00 daily. Medical Branch clopidogrel Yes [id number] 75mg Take 1 [facility] (PLAVIX) 75 7-05 tablet by ity of mg tablet 00:00: mouth [place] 00 daily. Medical Branch furosemide 2019- Yes [id number] 20mg Take 1 [facility] n[facility] (LASIX) 20 7-05 tablet by ity of mg tablet 00:00: mouth [place] 00 daily. Medical Branch isosorbide Yes [id number] 30mg Take 1 [facility] mononitrate 7-05 tablet by ity of 30 mg 24 hr 00:00: mouth [place] tablet 00 daily. Medical Branch metoprolol Yes [id number] 25mg Take 1 [facility] nivers tartrate 25 7-05 tablet by ity of mg tablet 00:00: mouth [place] 00 daily. Medical Branch fluconazole Yes [id number] 150mg Take 1 [facility] (DIFLUCAN) 7-05 tablet by ity of 150 mg 00:00: mouth [place] tablet 00 SEE-INSTRU Medical CTIONS. 1 Branch PO weekly/PRN yeast infection metoprolol Yes [id number] 25mg Take 1 [facility] nivers tartrate 25 7-05 tablet by ity of mg tablet 00:00: mouth [place] 00 daily. Medical Branch metoprolol Yes [id number] 25mg Take 1 [facility] nivers tartrate 25 7-05 tablet by ity of mg tablet 00:00: mouth [place] 00 daily. Medical Branch metoprolol Yes [id number] 25mg Take 1 [facility] nivers tartrate 25 7-05 tablet by ity of mg tablet 00:00: mouth [place] 00 daily. Medical Branch metoprolol Yes [id number] 25mg Take 1 [facility] nivers tartrate 25 7-05 tablet by ity of mg tablet 00:00: mouth [place] 00 daily. Medical Branch metoprolol Yes [id number] 25mg Take 1 [facility] nivers tartrate 25 7-05 tablet by ity of mg tablet 00:00: mouth [place] 00 daily. Medical Branch metoprolol Yes [id number] 25mg Take 1 [facility] nivers tartrate 25 7-05 tablet by ity of mg tablet 00:00: mouth [place] 00 daily. Medical Branch metoprolol Yes [id number] 25mg Take 1 [facility] nivers tartrate 25 7-05 tablet by ity of mg tablet 00:00: mouth [place] 00 daily. Medical Branch metoprolol 2020- No [id number] 25mg Take 1 [facility] tartrate 25 11-30 03-20 tablet by it y of mg tablet 00:00: 00:00 mouth [place] 00 :00 daily. Medical [facility] isosorbide 2020- No [id number] 30mg Take 1 [facility] mononitrate 11-30 tablet by it y of 30 mg 24 hr 00:00: 00:00 mouth [place] tablet 00 :00 daily. [facility] isosorbide 2020- No [id number] 30mg Take 1 [facility] mononitrate 11-30 tablet by it y of 30 mg 24 hr 00:00: 00:00 mouth [place] 00 :00 daily. [facility] isosorbide 2020- No [id number] 30mg Take 1 [facility] mononitrate 11-30 tablet [...] mouth ity o f tablet 18:18: daily. [place] [address] Medical Branch aspirin 2019-0 Yes 81mg Take [...] mouth ity o f tablet 18:18: daily. [place] [address] Medical Branch aspirin 2018-0 Yes 81mg Take [...] mouth ity o f tablet 18:18: daily. [place] [address] Medical Branch aspirin 2018-0 Yes 81mg Take [...] mouth ity o f tablet 18:18: daily. [place] [address] Medical Branch aspirin 2018-0 Yes 81mg Take 81 mg [facility] ers (ASPIRIN 6-19 by mouth ity of LOW DOSE) 18:18: daily. [place] 81 mg EC 24 Medical tablet Branch phenazopyri 2018-0 Yes [id number] 200mg Take 1 [facility] dine 200 mg 6-02 tablet by ity of tablet 00:00: mouth 3 (three) Medical times Branch daily. phenazopyri 2019-0 Yes [id number] 200mg Take 1 [facility] dine 200 mg 6-02 tablet by ity of tablet 00:00: mouth 3 (three) Medical times Branch daily. phenazopyri 2018-0 Yes [id number] 200mg Take 1 [facility] dine 200 mg 6-02 tablet by ity of tablet 00:00: mouth 3 (three) Medical times Branch daily. phenazopyri 2018-0 Yes [id number] 200mg Take 1 [facility] dine 200 mg 6-02 tablet by ity of tablet 00:00: mouth 3 (three) Medical times Branch daily. phenazopyri 2018-0 Yes [id number] 200mg Take 1 [facility] dine 200 mg 6-02 tablet by ity of tablet 00:00: mouth 3 (three) Medical times Branch daily. phenazopyri 2018- Yes [id number] 200mg Take 1 [facility] dine 200 mg 6-02 tablet by ity of tablet 00:00: mouth (three) Medical times Branch daily. phenazopyri 2018- Yes [id number] 200mg Take 1 [facility] dine 200 mg 6-02 tablet by ity of tablet 00:00: mouth (three) Medical times Branch daily. phenazopyri 2018- Yes [id number] 200mg Take 1 [facility] dine 200 mg 6-02 tablet by ity of tablet 00:00: mouth (three) Medical times Branch daily. phenazopyri 2018-0 Yes [id number] 200mg Take 1 [facility] dine 200 mg 6-02 tablet by ity of tablet 00:00: mouth (three) Medical times Branch daily. phenazopyri 2018-0 Yes [id number] 200mg Take 1 [facility] dine 200 mg 6-02 tablet by ity of tablet 00:00: mouth (three) Medical times Branch daily. phenazopyri 2018-0 Yes [id number] 200mg Take 1 [facility] dine 200 mg 6-02 tablet by ity of tablet 00:00: mouth 3 (three) Medical times Branch daily. phenazopyri 2018-0 Yes [id number] 200mg Take 1 [facility] dine 200 mg 6-02 tablet by ity of tablet 00:00: mouth 3 (three) Medical times Branch daily. phenazopyri 2018-0 Yes [id number] 200mg Take 1 [facility] dine 200 mg 6-02 tablet by ity of tablet 00:00: mouth 3 (three) Medical times Branch daily. phenazopyri 2019-0 Yes [id number] 200mg Take 1 [facility] dine 200 mg 6-02 tablet by ity of tablet 00:00: mouth 3 (three) Medical times Branch daily. phenazopyri 2018-0 Yes [id number] 200mg Take 1 [facility] dine 200 mg 6-02 tablet by ity of tablet 00:00: mouth 3 (three) Medical times Branch daily. phenazopyri 2018-0 Yes [id number] 200mg Take 1 [facility] dine 200 mg 6-02 tablet by ity of tablet 00:00: mouth 3 (three) Medical times Branch daily. phenazopyri 2018-0 Yes [id number] 200mg Take 1 [facility] dine 200 mg 6-02 tablet by ity of tablet 00:00: mouth 3 (three) Medical times Branch daily. phenazopyri 2018-0 Yes [id number] 200mg Take 1 [facility] dine 200 mg 6-02 tablet by ity of tablet 00:00: mouth (three) Medical times Branch daily. phenazopyri 2018- Yes [id number] 200mg Take 1 [facility] dine 200 mg 6-02 tablet by ity of tablet 00:00: mouth (three) Medical times Branch daily. phenazopyri 2018-0 Yes [id number] 200mg Take 1 [facility] dine 200 mg 6-02 tablet by ity of tablet 00:00: mouth [place] (three) Medical times Branch daily. phenazopyri 2018-0 Yes [id number] 200mg Take 1 [facility] dine 200 mg 6-02 tablet by ity of tablet 00:00: mouth 3 [place] (three) Medical times Branch daily. phenazopyri 2018-0 Yes [id number] 200mg Take 1 [facility] dine 200 mg 6-02 tablet by ity of tablet 00:00: mouth 3 [place] (three) Medical times Branch daily. phenazopyri 2018-0 Yes [id number] 200mg Take 1 [facility] dine 200 mg 6-02 tablet by ity of tablet 00:00: mouth 3 [place] (three) Medical times Branch daily. phenazopyri 2018-0 Yes [id number] 200mg Take 1 [facility] dine 200 mg 6-02 tablet by ity of tablet 00:00: mouth 3 [place] (three) Medical times Branch daily. phenazopyri 2019-0 Yes [id number] 200mg Take 1 [facility] dine 200 mg 6-02 tablet by ity of tablet 00:00: mouth 3 [place] 00 (three) Medical times Branch daily. phenazopyri 2018-0 Yes [id number] 200mg Take 1 [facility] dine 200 mg 6-02 tablet by ity of tablet 00:00: mouth 3 [place] 00 (three) Medical times Branch daily. phenazopyri 2018-0 Yes [id number] 200mg Take 1 [facility] dine 200 mg 6-02 tablet by ity of tablet 00:00: mouth 3 [place] 00 (three) Medical times Branch daily. phenazopyri 2018-0 Yes [id number] 200mg Take 1 [facility] dine 200 mg 6-02 tablet by ity of tablet 00:00: mouth 3 [place] 00 (three) Medical times Branch daily. phenazopyri 2018-0 Yes [id number] 200mg Take 1 [facility] dine 200 mg 6-02 tablet by ity of tablet 00:00: mouth 3 [place] 00 (three) Medical times Branch daily. phenazopyri 2018-0 Yes [id number] 200mg Take 1 [facility] dine 200 mg 6-02 tablet by ity of tablet 00:00: mouth 3 [place] 00 (three) Medical times Branch daily. phenazopyri 2018-0 Yes [id number] 200mg Take 1 [facility] dine 200 mg 6-02 tablet by ity of tablet 00:00: mouth 3 [place] 00 (three) Medical times Branch daily. phenazopyri 2018-0 Yes [id number] 200mg Take 1 [facility] dine 200 mg 6-02 tablet by ity of tablet 00:00: mouth 3 [place] 00 (three) Medical times Branch daily. phenazopyri 2018-0 Yes [id number] 200mg Take 1 [facility] dine 200 mg 6-02 tablet by ity of tablet 00:00: mouth 3 [place] 00 (three) Medical times Branch daily. phenazopyri 2018-0 Yes [id number] 200mg Take 1 [facility] dine 200 mg 6-02 tablet by ity of tablet 00:00: mouth 3 [place] 00 (three) Medical times Branch daily. phenazopyri 2018- 2020- No [id number] 200mg Take 1 [facility] dine 200 mg 6-02 08-14 tablet by it y of tablet 00:00: 00:00 mouth 3 [place] 00 :00 (three) Medical times Branch daily. phenazopyri 2020- No [id number] 200mg Take 1 [facility] dine 200 mg 10-28 0814 tablet by it y of tablet 00:00: 00:00 mouth 3 [place] 00 :00 (three) Medical times Branch daily. miSOPROStol 2018- Yes [id number] Take one [facility] 200 mcg 5-10 tablet the ity of tablet 00:00: night [place] 00 before Medical procedure, Branch take one table the morning of procedure. miSOPROStol 2018- Yes [id number] Take one [facility] 200 mcg 5-10 tablet the ity of tablet 00:00: night [place] 00 before Medical procedure, Branch take one table the morning of procedure. miSOPROStol 2018- Yes [id number] Take one [facility] 200 mcg 5-10 tablet the ity of tablet 00:00: night [place] 00 before Medical procedure, Branch take one table the morning of procedure. miSOPROStol Yes [id number] Take one [facility] 200 mcg 5-10 tablet the ity of tablet 00:00: night [place] 00 before Medical procedure, Branch take one table the morning of procedure. miSOPROStol 2018- Yes [id number] Take one [facility] 200 mcg 5-10 tablet the ity of tablet 00:00: night [place] 00 before Medical procedure, Branch take one table the morning of procedure. miSOPROStol 2018- Yes [id number] Take one [facility] 200 mcg 5-10 tablet the ity of tablet 00:00: night [place] 00 before Medical procedure, Branch take one table the morning of procedure. miSOPROStol 2019- No [id number] Take one [facility] 200 mcg 5-10 09-09 tablet the ity o f tablet 00:00: 00:00 night [place] 00 :00 before Medical procedure, Branch take one table the morning of procedure. miSOPROStol 2019- No [id number] Take one [facility] 200 mcg 5-10 09-09 tablet the ity o f tablet 00:00: 00:00 night [place] 00 :00 before Medical procedure, Branch take one table the morning of procedure. escitalopra 2018- Yes [id number] 10mg Take 1 [facility] m oxalate 4-30 tablet by ity o f (LEXAPRO) 00:00: mouth [place] 10 mg 00 daily. Medical tablet Branch escitalopra 2018- Yes [id number] 10mg Take 1 [facility] m oxalate 4-30 tablet by ity o f (LEXAPRO) 00:00: mouth [place] 10 mg 00 daily. Medical tablet Branch escitalopra Yes [id number] 10mg Take 1 [facility] m oxalate 4-30 tablet by ity o f (LEXAPRO) 00:00: mouth [place] 10 mg 00 daily. Medical tablet Branch escitalopra Yes [id number] 10mg Take 1 [facility] m oxalate 4-30 tablet by ity o f (LEXAPRO) 00:00: mouth [place] 10 mg 00 daily. Medical tablet Branch escitalopra Yes [id number] 10mg Take 1 [facility] m oxalate 4-30 tablet by ity o f (LEXAPRO) 00:00: mouth [place] 10 mg 00 daily. Medical tablet Branch escitalopra Yes [id number] 10mg Take 1 [facility] m oxalate 4-30 tablet by ity o f (LEXAPRO) 00:00: mouth [place] 10 mg 00 daily. Medical tablet Branch escitalopra 2019- No [id number] 10mg Take 1 [facility] m oxalate 4-30 09-09 tablet by ity of (LEXAPRO) 00:00: 00:00 mouth [place] 10 mg 00 :00 daily. Medical tablet Branch escitalopra 2019- No [id number] 10mg Take 1 [facility] m oxalate 4-30 09-09 tablet by ity of (LEXAPRO) 00:00: 00:00 mouth [place] 10 mg 00 :00 daily. Medical tablet Branch Nitrofurant 2018- Yes [id number] 100mg Take 1 [facility] oin&Nit. 4-25 capsule by ity o f Macrocryst 00:00: mouth [place] (MACROBID) 00 daily. Medical 100 mg Branch capsule Nitrofurant 2018- Yes [id number] 100mg Take 1 [facility] oin&Nit. 4-25 capsule by ity o f Macrocryst 00:00: mouth [place] (MACROBID) 00 daily. Medical 100 mg Branch capsule Nitrofurant 2018- Yes [id number] 100mg Take 1 [facility] oin&Nit. 4-25 capsule by ity o f Macrocryst 00:00: mouth [place] (MACROBID) 00 daily. Medical 100 mg Branch capsule Nitrofurant 2018- Yes [id number] 100mg Take 1 [facility] oin&Nit. 4-25 capsule by ity o f Macrocryst 00:00: mouth [place] (MACROBID) 00 daily. Medical 100 mg Branch capsule Nitrofurant 2019-0 Yes 100mg Take 1 [facility] oin&Nit. 4-25 capsule by ity o f Macrocryst 00:00: mouth [place] (MACROBID) 00 daily. Medical 100 mg Branch capsule Nitrofurant 2019-0 Yes [id number] 100mg Take 1 [facility] oin&Nit. 4-25 capsule [...] 100 mg Branch capsule Nitrofurant 2019-0 Yes [id number] 100mg Take 1 [facility] oin&Nit. 4-25 capsule by ity o f Macrocryst 00:00: mouth [place] (MACROBID) 00 daily. Medical 100 mg Branch capsule Nitrofurant 2019-0 Yes [id number] 100mg Take 1 [facility] oin&Nit. 4-25 capsule by ity o f Macrocryst 00:00: mouth [place] (MACROBID) 00 daily. Medical 100 mg Branch capsule Nitrofurant 2019-0 Yes [id number] 100mg Take 1 [facility] oin&Nit. 4-25 capsule by ity o f Macrocryst 00:00: mouth [place] (MACROBID) 00 daily. Medical 100 mg Branch capsule Nitrofurant 2018-0 Yes [id number] 100mg Take 1 [facility] oin&Nit. 4-25 capsule by ity o f Macrocryst 00:00: mouth [place] (MACROBID) 00 daily. Medical 100 mg Branch capsule Nitrofurant 2019-0 Yes [id number] 100mg Take 1 [facility] oin&Nit. 4-25 capsule by ity o f Macrocryst 00:00: mouth [place] (MACROBID) 00 daily. Medical 100 mg Branch capsule Nitrofurant 2018-0 Yes [id number] 100mg Take 1 [facility] oin&Nit. 4-25 capsule by ity o f Macrocryst 00:00: mouth [place] (MACROBID) 00 daily. Medical 100 mg Branch capsule Nitrofurant 2019-0 Yes [id number] 100mg Take 1 [facility] oin&Nit. 4-25 capsule by ity o f Macrocryst 00:00: mouth [place] (MACROBID) 00 daily. Medical 100 mg Branch capsule Nitrofurant 2019-0 Yes [id number] 100mg Take 1 [facility] oin&Nit. 4-25 capsule by ity o f Macrocryst 00:00: mouth [place] (MACROBID) 00 daily. Medical 100 mg Branch capsule Nitrofurant 2019-0 Yes [id number] 100mg Take 1 [facility] oin&Nit. 4-25 capsule by ity o f Macrocryst 00:00: mouth [place] (MACROBID) 00 daily. Medical 100 mg Branch capsule Nitrofurant 2019-0 Yes [id number] 100mg Take 1 [facility] oin&Nit. 4-25 capsule by ity o f Macrocryst 00:00: mouth [place] (MACROBID) 00 daily. Medical 100 mg Branch capsule Nitrofurant 2019-0 Yes [id number] 100mg Take 1 [facility] oin&Nit. 4-25 capsule by ity o f Macrocryst 00:00: mouth [place] (MACROBID) 00 daily. Medical 100 mg Branch capsule Nitrofurant 2019-0 Yes [id number] 100mg Take 1 [facility] oin&Nit. 4-25 capsule [...] 100 mg Branch capsule Nitrofurant 2018-0 Yes [id number] 100mg Take 1 [facility] oin&Nit. 4-25 capsule [...] 100 mg Branch capsule Nitrofurant 2019-0 Yes [id number] 100mg Take 1 [facility] oin&Nit. 4-25 capsule by ity o f Macrocryst 00:00: mouth [place] (MACROBID) 00 daily. Medical 100 mg Branch capsule Nitrofurant 2019-0 Yes [id number] 100mg Take 1 [facility] oin&Nit. 4-25 capsule by ity o f Macrocryst 00:00: mouth [place] (MACROBID) 00 daily. Medical 100 mg Branch capsule Nitrofurant 2019-0 Yes [id number] 100mg Take 1 [facility] oin&Nit. 4-25 capsule by ity o f Macrocryst 00:00: mouth [place] (MACROBID) 00 daily. Medical 100 mg Branch capsule Nitrofurant 2019-0 2020- No [id number] 100mg Take 1 [facility] oin&Nit. 4-25 08-14 capsule by ity of Macrocryst 00:00: 00:00 mouth [place] (MACROBID) 00 :00 daily. Medical 100 mg Branch capsule Nitrofurant 2019-0 2020- No [id number] 100mg Take 1 [facility] oin&Nit. 4-25 08-14 [...] of tablet 00:00: [place] 00 Medical Branch escitalopra 2019-0 Yes Univer s m oxalate 4-06 ity of 20 mg 00:00: [place] tablet 00 Medical Branch levETIRAcet 2019-0 Yes Univer s am 500 mg 4-06 ity of tablet 00:00: [place] 00 Medical Branch levETIRAcet 2019-0 Yes Univer s am 500 mg 4-06 ity of tablet 00:00: [place] 00 [facility] levETIRAcet 2019-0 Yes Univer s am 500 mg 4-06 ity of tablet 00:00: [place] 00 Medical Branch levETIRAcet 2019-0 Yes Univer s am 500 mg 4-06 ity of tablet 00:00: [place] 00 [facility] levETIRAcet 2019-0 Yes Univer s am 500 mg 4-06 ity of tablet 00:00: [place] 00 [facility] levETIRAcet 2019-0 Yes Univer s am 500 mg 4-06 ity of tablet 00:00: [place] 00 [facility] levETIRAcet 2019-0 Yes Univer s am [...] 4-06 ity of tablet 00:00: [place] 00 [facility] levETIRAcet 2019-0 2020- No Unive rs am 500 mg 4-06 08-14 ity of tablet 00:00: 00:00 [place] 00 :00 [facility] levETIRAcet 2019-0 2020- No Unive rs am 500 mg 09-01 ity of tablet 00:00: 00:00 [place] 00 :00 [facility] gabapentin 2019-0 Yes [id number] 800mg Take 1 Univers 800 mg 4-05 tablet by ity of tablet 00:00: mouth 3 (three) Medical times Branch daily. metFORMIN 2019-0 Yes 1000mg Take 2 Univ ers 500 mg 4-05 tablets by ity of tablet 00:00: mouth (two) Medical times Branch daily with meals. You can do two pills in the morning and one in the evening. gabapentin 2019-0 Yes [id number] 800mg Take 1 Univers 800 mg 4-05 tablet by ity of tablet 00:00: mouth (three) Medical times Branch daily. metFORMIN 2019-0 Yes 1000mg Take 2 Univ ers 500 mg 4-05 tablets by ity of tablet 00:00: mouth (two) Medical times Branch daily with meals. You can do two pills in the morning and one in the evening. gabapentin 2019-0 Yes [id number] 800mg Take 1 Univers 800 mg 4-05 tablet by ity of tablet 00:00: mouth (three) Medical times Branch daily. metFORMIN 2019-0 Yes 1000mg Take 2 Univ ers 500 mg 4-05 tablets by ity of tablet 00:00: mouth (two) Medical times Branch daily with meals. You can do two pills in the morning and one in the evening. gabapentin 2019-0 Yes [id number] 800mg Take 1 Univers 800 mg 4-05 [...] one in the evening. gabapentin 2019-0 Yes [id number] 800mg Take 1 Univers 800 mg 4-05 [...] injection breakfast and dinner. gabapentin 2019-0 Yes [id number] 800mg Take 1 Univers 800 mg 4-05 [...] injection breakfast and dinner. gabapentin 2019-0 Yes [id number] 800mg Take 1 Univers 800 mg 4-05 [...] injection breakfast and dinner. gabapentin 2019-0 Yes [id number] 800mg Take 1 Univers 800 mg 4-05 [...] injection breakfast and dinner. gabapentin 2019-0 Yes [id number] 800mg Take 1 Univers 800 mg 4-05 [...] injection breakfast and dinner. gabapentin 2019-0 Yes [id number] 800mg Take 1 Univers 800 mg 4-05 [...] injection breakfast and dinner. gabapentin 2019-0 Yes [id number] 800mg Take 1 [facility] 800 mg 4-05 [...] injection breakfast and dinner. gabapentin 2019-0 Yes [id number] 800mg Take 1 Univers 800 mg 4-05 [...] injection breakfast and dinner. gabapentin 2019-0 Yes [id number] 800mg Take 1 Univers 800 mg 4-05 tablet by ity of tablet 00:00: mouth (three) Medical times Branch daily. metFORMIN 2019-0 Yes 1000mg Take 2 Univ ers 500 mg 4-05 tablets by ity of tablet 00:00: mouth (two) Medical times Branch daily with meals. You can do two pills in the morning and one in the evening. gabapentin 2019-0 Yes [id number] 800mg Take 1 Univers 800 mg 4-05 tablet by ity of tablet 00:00: mouth (three) Medical times Branch daily. metFORMIN 2019-0 Yes 1000mg Take 2 Univ ers 500 mg 4-05 tablets by ity of tablet 00:00: mouth (two) Medical times Branch daily with meals. You can do two pills in the morning and one in the evening. gabapentin 2019-0 Yes [id number] 800mg Take 1 Univers 800 mg 4-05 tablet by ity of tablet 00:00: mouth (three) Medical times Branch daily. metFORMIN 2019-0 Yes 1000mg Take 2 Univ ers 500 mg 4-05 tablets by ity of tablet 00:00: mouth (two) Medical times Branch daily with meals. You can do two pills in the morning and one in the evening. gabapentin 2019-0 Yes [id number] 800mg Take 1 Univers 800 mg 4-05 tablet by ity of tablet 00:00: mouth 3 (three) Medical times Branch daily. metFORMIN 2019-0 Yes 1000mg Take 2 Univ ers 500 mg 4-05 tablets by ity of tablet 00:00: mouth (two) Medical times Branch daily with meals. You can do two pills in the morning and one in the evening. gabapentin 2019-0 Yes [id number] 800mg Take 1 Univers 800 mg 4-05 tablet by ity of tablet 00:00: mouth (three) Medical times Branch daily. metFORMIN 2019-0 Yes 1000mg Take 2 Univ ers 500 mg 4-05 tablets by ity of tablet 00:00: mouth (two) Medical times Branch daily with meals. You can do two pills in the morning and one in the evening. gabapentin 2019-0 Yes [id number] 800mg Take 1 Univers 800 mg 4-05 tablet by ity of tablet 00:00: mouth (three) Medical times Branch daily. metFORMIN 2019-0 Yes 1000mg Take 2 Univ ers 500 mg 4-05 tablets by ity of tablet 00:00: mouth (two) Medical times Branch daily with meals. You can do two pills in the morning and one in the evening. gabapentin 2019-0 Yes [id number] 800mg Take 1 Univers 800 mg 4-05 tablet by ity of tablet 00:00: mouth (three) Medical times Branch daily. metFORMIN 2019-0 Yes 1000mg Take 2 Univ ers 500 mg 4-05 tablets by ity of tablet 00:00: mouth (two) Medical times Branch daily with meals. You can do two pills in the morning and one in the evening. gabapentin 2019-0 Yes [id number] 800mg Take 1 Univers 800 mg 4-05 tablet by ity of tablet 00:00: mouth (three) Medical times Branch daily. metFORMIN 2019-0 Yes 1000mg Take 2 Univ ers 500 mg 4-05 tablets by ity of tablet 00:00: mouth (two) Medical times Branch daily with meals. You can do two pills in the morning and one in the evening. gabapentin 2019-0 Yes [id number] 800mg Take 1 Univers 800 mg 4-05 [...] one in the evening. gabapentin 2019-0 Yes [id number] 800mg Take 1 Univers 800 mg 4-05 [...] in the evening. gabapentin 2019- 2020- No [id number] 800mg Take 1 Univers 800 mg 4-05 05-05 tablet by ity of tablet 00:00: 00:00 mouth 3 [place] 00 :00 (three) Medical times Branch daily. gabapentin 2019- 2020- No [id number] 800mg Take 1 Univers 800 mg 4-05 05-05 tablet by ity of tablet 00:00: 00:00 mouth 3 [place] 00 :00 (three) Medical times Branch daily. gabapentin 2018- 2020- No [id number] 800mg Take 1 Univers 800 mg 4-05 [...] tablet times Branch daily. Insulin 2018-0 Yes [id number] Use as Uni vers Syringe-Nee 3-30 directed ity of dle U-100 00:00: [place] (INSULIN 00 Medical SYRINGE) 1 Branch mL 30 gauge x 5/16 Syrg Insulin 2018-0 Yes [id number] Use as Uni vers Syringe-Nee 3-30 directed ity of dle U-100 00:00: [place] (INSULIN 00 Medical SYRINGE) 1 Branch mL 30 gauge x 5/16 Syrg Insulin 2018-0 Yes [id number] Use as Uni vers Syringe-Nee 3-30 directed ity of dle U-100 00:00: [place] (INSULIN 00 Medical SYRINGE) 1 Branch mL 30 gauge x 5/16 Syrg Insulin 2018-0 Yes [id number] Use as Uni vers Syringe-Nee 3-30 directed ity of dle U-100 00:00: [place] (INSULIN 00 Medical SYRINGE) 1 Branch mL 30 gauge x 5/16 Syrg Insulin 2018-0 Yes [id number] Use as Uni vers Syringe-Nee 3-30 directed ity of dle U-100 00:00: [place] (INSULIN 00 Medical SYRINGE) 1 Branch mL 30 gauge x 5/16 Syrg Insulin 2017-0 Yes [id number] Use as Uni vers Syringe-Nee 3-30 directed ity of dle U-100 00:00: [place] (INSULIN 00 Medical SYRINGE) 1 Branch mL 30 gauge x 5/16 Syrg Insulin 2017-0 Yes [id number] Use as Uni vers Syringe-Nee 3-30 directed ity of dle U-100 00:00: [place] (INSULIN 00 Medical SYRINGE) 1 Branch mL 30 gauge x 5/16 Syrg Insulin 2017-0 Yes [id number] Use as Uni vers Syringe-Nee 3-30 directed ity of dle U-100 00:00: [place] (INSULIN 00 Medical SYRINGE) 1 Branch mL 30 gauge x 5/16 Syrg Insulin 2017-0 Yes [id number] Use as Uni vers Syringe-Nee 3-30 directed ity of dle U-100 00:00: [place] (INSULIN 00 Medical SYRINGE) 1 Branch mL 30 gauge x 5/16 Syrg Insulin 2017-0 Yes [id number] Use as Uni vers Syringe-Nee 3-30 directed ity of dle U-100 00:00: [place] (INSULIN 00 Medical SYRINGE) 1 Branch mL 30 gauge x 5/16 Syrg Insulin 2018-0 Yes [id number] Use as Uni vers Syringe-Nee 3-30 directed ity of dle U-100 00:00: [place] (INSULIN 00 Medical SYRINGE) 1 Branch mL 30 gauge x 5/16 Syrg Insulin 2018-0 Yes [id number] Use as Uni vers Syringe-Nee 3-30 directed ity of dle U-100 00:00: [place] (INSULIN 00 Medical SYRINGE) 1 Branch mL 30 gauge x 5/16 Syrg Insulin 2018-0 Yes [id number] Use as Uni vers Syringe-Nee 3-30 directed ity of dle U-100 00:00: [place] (INSULIN 00 Medical SYRINGE) 1 Branch mL 30 gauge x 5/16 Syrg Insulin 2018-0 Yes [id number] Use as Uni vers Syringe-Nee 3-30 directed ity of dle U-100 00:00: [place] (INSULIN 00 Medical SYRINGE) 1 Branch mL 30 gauge x 5/16 Syrg Insulin 2018-0 Yes [id number] Use as Uni vers Syringe-Nee 3-30 directed ity of dle U-100 00:00: [place] (INSULIN 00 Medical SYRINGE) 1 Branch mL 30 gauge x 5/16 Syrg Insulin 2018-0 Yes [id number] Use as Uni vers Syringe-Nee 3-30 directed ity of dle U-100 00:00: [place] (INSULIN 00 Medical SYRINGE) 1 Branch mL 30 gauge x 5/16 Syrg Insulin 2017-0 Yes [id number] Use as Uni vers Syringe-Nee 3-30 directed ity of dle U-100 00:00: [place] (INSULIN 00 Medical SYRINGE) 1 Branch mL 30 gauge x 5/16 Syrg Insulin 2017-0 Yes [id number] Use as Uni vers Syringe-Nee 3-30 directed ity of dle U-100 00:00: [place] (INSULIN 00 Medical SYRINGE) 1 Branch mL 30 gauge x 5/16 Syrg Insulin 2018-0 Yes [id number] Use as Uni vers Syringe-Nee 3-30 directed ity of dle U-100 00:00: [place] (INSULIN 00 Medical SYRINGE) 1 Branch mL 30 gauge x 5/16 Syrg Insulin 2018-0 Yes [id number] Use as Uni vers Syringe-Nee 3-30 directed ity of dle U-100 00:00: [place] (INSULIN 00 Medical SYRINGE) 1 Branch mL 30 gauge x 5/16 Syrg Insulin 2018-0 Yes [id number] Use as Uni vers Syringe-Nee 3-30 directed ity of dle U-100 00:00: [place] (INSULIN 00 Medical SYRINGE) 1 Branch mL 30 gauge x 5/16 Syrg Insulin 2018-0 Yes [id number] Use as Uni vers Syringe-Nee 3-30 directed ity of dle U-100 00:00: [place] (INSULIN 00 Medical SYRINGE) 1 Branch mL 30 gauge x 5/16 Syrg Insulin 2018-0 Yes [id number] Use as Uni vers Syringe-Nee 3-30 directed ity of dle U-100 00:00: [place] (INSULIN 00 Medical SYRINGE) 1 Branch mL 30 gauge x 5/16 Syrg Insulin 2018-0 Yes [id number] Use as Uni vers Syringe-Nee 3-30 directed ity of dle U-100 00:00: [place] (INSULIN 00 Medical SYRINGE) 1 Branch mL 30 gauge x 5/16 Syrg Insulin 2018-0 Yes [id number] Use as Uni vers Syringe-Nee 3-30 directed ity of dle U-100 00:00: [place] (INSULIN 00 Medical SYRINGE) 1 Branch mL 30 gauge x 5/16 Syrg Insulin 2018-0 Yes [id number] Use as Uni vers Syringe-Nee 3-30 directed ity of dle U-100 00:00: [place] (INSULIN 00 Medical SYRINGE) 1 Branch mL 30 gauge x 5/16 Syrg Insulin 2017-0 Yes [id number] Use as Uni vers Syringe-Nee 3-30 directed ity of dle U-100 00:00: [place] (INSULIN 00 Medical SYRINGE) 1 Branch mL 30 gauge x 5/16 Syrg Insulin 2018-0 Yes [id number] Use as Uni vers Syringe-Nee 3-30 directed ity of dle U-100 00:00: [place] (INSULIN 00 Medical SYRINGE) 1 Branch mL 30 gauge x 5/16 Syrg Insulin 2018-0 Yes [id number] Use as Uni vers Syringe-Nee 3-30 directed ity of dle U-100 00:00: [place] (INSULIN 00 Medical SYRINGE) 1 Branch mL 30 gauge x 5/16 Syrg Insulin 2018-0 Yes [id number] Use as Uni vers Syringe-Nee 3-30 directed ity of dle U-100 00:00: [place] (INSULIN 00 Medical SYRINGE) 1 Branch mL 30 gauge x 5/16 Syrg Insulin 2018-0 Yes [id number] Use as Uni vers Syringe-Nee 3-30 directed ity of dle U-100 00:00: [place] (INSULIN 00 Medical SYRINGE) 1 Branch mL 30 gauge x 5/16 Syrg Insulin 2018-0 Yes [id number] Use as Uni vers Syringe-Nee 3-30 directed ity of dle U-100 00:00: [place] (INSULIN 00 Medical SYRINGE) 1 Branch mL 30 gauge x 5/16 Syrg Insulin 2018-0 Yes [id number] Use as Uni vers Syringe-Nee 3-30 directed ity of dle U-100 00:00: (INSULIN 00 Medical SYRINGE) 1 Branch mL 30 gauge x 5/16 Syrg Insulin Yes [id number] Use as Uni vers Syringe-Nee 3-30 directed ity of dle U-100 00:00: (INSULIN 00 Medical SYRINGE) 1 Branch mL 30 gauge x 5/16 Syrg Insulin 2020- No [id number] Use as Un cali Syringe-Nee 330 01-09 directed ity of dle U-100 00:00: 00:00 (INSULIN 00 :00 Medical SYRINGE) 1 Branch mL 30 gauge x 5/16 Syrg Insulin 2020- No [id number] Use as Un cali Syringe-Nee 330 01-09 directed ity of dle U-100 00:00: 00:00 [place] (INSULIN 00 :00 Medical SYRINGE) 1 Branch mL 30 gauge x 5/16 Syrg Atorvastati Atorvastati Yes [place] [address] [facility] Calcium n Calcium [facility] Lexapro Lexapro Yes Dada [address] [facility] Metoprolol Metoprolol Yes [place]ada [address] [facility] Tartrate Tartrate Horan with food [facility] Ranexa Ranexa Yes [facility] Insulin Insulin Yes Dada [address] [facility] [address] Aspart Prot Aspart Prot Horan BID [facility] & [facility] Aspirin Aspirin Yes Dada [address] [facility] Gabapentin Gabapentin Yes Dada [address] [facility] Furosemide Furosemide Yes [place]ada [address] [facility] Duloxetine Duloxetine Yes Dada [address] [facility] [address] HCl HCl [facility] Xanax Xanax Yes [place] [address] [facility] Clopidogrel Clopidogrel Yes [place]ada [address] [facility] [address] Bisulfate Bisulfate [facility] Metformin Metformin Yes Dada [...] [facility] [place] Yes Dada [address] [facility] needed [facility] Lexapro Lexapro Yes Dada [address] [facility] Atorvastati Atorvastati Yes Dada [address] [facility] [address] n Calcium n Calcium [facility] Clopidogrel Clopidogrel Yes Ddaa [address] [facility] [address] Bisulfate Bisulfate [facility] Furosemide Furosemide Yes Dada [address] [facility] Immunizations Ordered Filled Immunization Date Status Comments Sour e Immunization Name Name SARS-COV-2 COVID-19 2021-01-17 Completed Unive rsity of PFIZER VACCINE 00:00:00 [facility] SARS-COV-2 COVID-19 2021-01-17 Completed Unive rsity of PFIZER VACCINE 00:00:00 [facility] SARS-COV-2 COVID-19 2021-01-17 Completed Unive rsity of PFIZER VACCINE 00:00:00 [facility] SARS-COV-2 COVID-19 2021-01-17 Completed Unive rsity of PFIZER VACCINE 00:00:00 [facility] SARS-COV-2 COVID-19 2021-01-17 Completed Unive rsity of PFIZER VACCINE 00:00:00 [facility] SARS-COV-2 COVID-19 2021-01-17 Completed Unive rsity of PFIZER VACCINE 00:00:00 [facility] SARS-COV-2 COVID-19 2021-01-17 Completed Unive rsity of PFIZER VACCINE 00:00:00 [facility] Vital Signs Vital Name Observation Time Observation Value Comments Source Systolic blood 2021-02-12 19:25:00 123 mm[Hg] Univer sity of pressure [place] [facility] Diastolic blood 2021-02-12 19:25:00 80 mm[Hg] Unive rsity of pressure [facility] Heart rate 2021-02-12 19:25:00 87 /min [facility] [place] [facility] [place] Body temperature 2021-02-12 19:25:00 36.83 [place] Univ ersity of [facility] Respiratory rate 2021-02-12 19:25:00 16 /min Univ ersity of [facility] Body height 2021-02-12 19:25:00 162.6 cm [facility] [place] [facility] [place] Body weight 2021-02-12 19:25:00 64.864 kg [facility] [place] [facility] BMI 2021-02-12 19:25:00 24.55 kg/m2 Universi ty of [facility] Oxygen saturation in 2021-02-12 19:25:00 99 /min University of Arterial blood by [facility] Pulse oximetry Branch Systolic blood 2021-02-12 18:15:00 108 mm[Hg] Univer sity of pressure [facility] Diastolic blood 2021-02-12 18:15:00 73 mm[Hg] Unive rsity of pressure [facility] Heart rate 2021-02-12 18:15:00 59 /min [facility]i [facility] [place] [facility] Respiratory rate 2021-02-12 18:15:00 18 /min Univ ersity of [facility] Body height 2021-02-12 18:15:00 162.6 cm [facility] [place] [facility] Body weight 2021-02-12 18:15:00 64.864 kg [facility] [place] [facility] BMI 2021-02-12 18:15:00 24.55 kg/m2 [facility] [place] [facility] Systolic blood 2021-01-17 17:22:00 129 mm[Hg] Univer sity of pressure [place] [facility] Diastolic blood 2021-01-17 17:22:00 83 mm[Hg] Unive rsity of pressure [place] [facility] Heart rate 2021-01-17 17:22:00 85 /min Universi ty of [facility] Body temperature 2021-01-17 17:22:00 36.06 [place] Univ ersity of [place] [facility] Respiratory rate 2021-01-17 17:22:00 16 /min Univ ersity of [place] [facility] Oxygen saturation in 2021-01-17 17:22:00 95 /min University of Arterial blood by [facility] blanquita Pulse oximetry Branch Body height 2021-01-15 21:03:00 162.6 cm Universi ty of [place] [facility] Body weight 2021-01-15 21:03:00 62.46 kg Universi ty of [place] [facility] BMI 2021-01-15 21:03:00 23.64 kg/m2 [facility] ty of [place] [facility] Systolic blood 2021-01-15 19:31:00 109 mm[Hg] Univer sity of pressure [place] [facility] Diastolic blood 2021-01-15 19:31:00 71 mm[Hg] Unive rsity of pressure [place] [facility] Heart rate 2021-01-15 19:31:00 88 [...] 93 /min University of Arterial blood by [facility] Pulse oximetry Branch Systolic blood 2021-01-01 16:37:00 [...] 100 /min University of Arterial blood by [facility] Pulse oximetry Branch Systolic blood 2020-12-01 15:53:00 123 mm[Hg] Univer sity of pressure [place] [facility] Diastolic blood 2020-12-01 15:53:00 69 mm[Hg] Unive rsity of pressure [place] [facility] Heart rate 2020-12-01 15:53:00 90 /min [facility] [place] [facility] Body temperature 2020-12-01 15:53:00 36.22 [place] Univ ers[facility] of [place] [facility] Respiratory rate 2020-12-01 15:53:00 16 /min Univ ersity of [place] [facility] Oxygen saturation in 2020-12-01 15:53:00 97 /min University of Arterial blood by [facility] Pulse oximetry Branch Body height 2020-11-30 14:35:00 [...] 2020-11-13 20:00:00 16 /min Univ ersity of [place] [facility] Body height 2020-11-13 20:00:00 162.6 cm [facility]i ty of [place] [facility] Body weight 2020-11-13 20:00:00 64.728 kg [facility]i [facility] [place] [facility] BMI 2020-11-13 20:00:00 24.49 kg/m2 [facility] [place] [facility] Oxygen saturation in 2020-11-13 20:00:00 94 /min University of Arterial blood by [facility] Pulse oximetry Branch Systolic blood 2020-10-07 19:37:00 118 mm[Hg] Univer sity of pressure [place] [facility] Diastolic blood 2020-10-07 19:37:00 80 mm[Hg] Unive rsity of pressure [place] [facility] Heart rate 2020-10-07 19:37:00 95 /min [facility]i ty [facility] [place] [facility] Body weight 2020-10-07 19:37:00 59.875 kg [facility]i [facility] [place] [facility] BMI 2020-10-07 19:37:00 22.65 kg/m2 Universi ty of [facility] Oxygen saturation in 2020-10-07 19:37:00 97 /min University Arterial blood by [facility] Pulse oximetry Branch Heart rate 2020-10-01 20:20:00 60 /min [facility] [place] [facility] Systolic blood 2020-10-01 20:20:00 120 mm[Hg] Univer sity of pressure [place] [facility] Diastolic blood 2020-10-01 20:20:00 80 mm[Hg] Unive rsity of pressure [place] [facility] Heart rate 2020-10-01 20:20:00 60 /min [facility]i ty of [place] [facility] Systolic blood 2020-10-01 20:20:00 120 mm[Hg] Univer sity of pressure [place] [facility] Diastolic blood 2020-10-01 20:20:00 80 mm[Hg] Unive rsity of pressure [place] [facility] Heart rate 2020-10-01 20:20:00 60 /min [facility]i [facility] [place] [facility] Systolic blood 2020-10-01 20:20:00 120 mm[Hg] Univer sity of pressure [place] [facility] Diastolic blood 2020-10-01 20:20:00 80 mm[Hg] Unive rsity of pressure [place] [facility] Heart rate 2020-10-01 20:20:00 60 /min [facility]i [facility] [place] [facility] Systolic blood 2020-10-01 20:20:00 120 mm[Hg] Univer sity of pressure [place] [facility] Diastolic blood 2020-10-01 20:20:00 80 mm[Hg] Unive rsity of pressure [place] [facility] Heart rate 2020-10-01 20:20:00 60 /min [facility]i [facility] [place] [facility] Systolic blood 2020-10-01 20:20:00 120 mm[Hg] Univer sity of pressure [place] [facility] Diastolic blood 2020-10-01 20:20:00 80 mm[Hg] Unive rsity of pressure [place] [facility] Heart rate 2020-10-01 20:20:00 60 /min [facility]i [facility] [place] [facility] Systolic blood 2020-10-01 20:20:00 120 mm[Hg] Univer sity of pressure [place] [facility] Diastolic blood 2020-10-01 20:20:00 80 mm[Hg] Unive rsity of pressure [place] [facility] Systolic blood 2020-09-07 20:47:00 104 mm[Hg] Univer sity of pressure [place] [facility] Diastolic blood 2020-09-07 20:47:00 62 mm[Hg] Unive rsity of pressure [place] [facility] Heart rate 2020-09-07 20:47:00 88 /min [facility]i [facility] [place] [facility] Body temperature 2020-09-07 20:47:00 36.17 [place] Univ ersity of [facility] Respiratory rate 2020-09-07 20:47:00 18 /min Univ ersity of [facility] Oxygen saturation in 2020-09-07 20:47:00 99 /min University of Arterial blood by [facility] Pulse oximetry Branch Body height 2020-09-05 07:40:00 162.6 cm [facility] [place] [facility] [place] Body weight 2020-09-05 07:40:00 60.737 kg [facility] [place] [facility] BMI 2020-09-05 07:40:00 22.97 kg/m2 [facility] [place] [facility] Systolic blood 2020-09-04 21:15:00 130 mm[Hg] Univer sity of pressure [place] [facility] Diastolic blood 2020-09-04 21:15:00 83 mm[Hg] Unive rsity of pressure [place] [facility] Heart rate 2020-09-04 21:15:00 85 [...] 19:29:00 128 mm[Hg] Univer sity of pressure [place] [facility] Diastolic blood 2020-05-08 19:29:00 80 mm[Hg] Unive rsity of pressure [place] [facility] Heart rate 2020-05-08 19:29:00 82 /min [facility] [place] [facility] Body temperature 2020-05-08 19:29:00 36.39 [place] [facility] of [place] [facility] Body height 2020-05-08 19:29:00 162.6 [...] 2020-04-03 19:48:00 81 /min [facility] [place] [facility] Body temperature 2020-04-03 19:48:00 36.72 [place] [facility] ers[facility] of [place] [facility] Respiratory rate 2020-04-03 19:48:00 18 /min Univ ersity of [place] [facility] Body height 2020-04-03 19:48:00 162.6 cm [facility] [place] [facility] Body weight 2020-04-03 19:48:00 69.4 kg [facility] [place] [facility] BMI 2020-04-03 19:48:00 26.26 kg/m2 [facility] [place] [facility] Systolic blood 2020-01-10 21:55:00 126 mm[Hg] Univer sity of pressure [place] [facility] Diastolic blood 2020-01-10 21:55:00 84 mm[Hg] Unive rsity of pressure [place] [facility] Heart rate 2020-01-10 21:55:00 93 /min [facility] [place] [facility] Respiratory rate 2020-01-10 21:55:00 16 /min Univ ersity of [place] [facility] Body height 2020-01-10 21:55:00 162.6 cm [facility] [place] [facility] Body weight 2020-01-10 21:55:00 72.303 kg [facility] [place] [facility] BMI 2020-01-10 21:55:00 27.36 kg/m2 [facility] [place] [facility] Systolic blood 2019-10-11 20:16:00 124 mm[Hg] Univer sity of pressure [place] [facility] Diastolic blood 2019-10-11 20:16:00 77 mm[Hg] Unive rsity of pressure [place] [facility] Heart rate 2019-10-11 20:16:00 92 /min [facility] [place] [facility] Body temperature 2019-10-11 20:16:00 36.89 [place] Univ ersity of [facility] Respiratory rate 2019-10-11 20:16:00 18 /min Univ ersity of [facility] Body height 2019-10-11 20:16:00 162.6 cm [facility] [place] [facility] Body weight 2019-10-11 20:16:00 80.74 kg [facility]i [facility] [place] [facility] BMI 2019-10-11 20:16:00 30.55 kg/m2 Universi ty of [facility] Heart rate 2019-08-16 16:31:00 90 /min [facility] Branch Respiratory rate 2019-08-16 16:31:00 18 /min Univ ersity of [facility] Oxygen saturation in 2019-08-16 16:31:00 97 /min University of Arterial blood by [facility] Pulse oximetry Branch Systolic blood 2019-08-16 16:17:00 110 mm[Hg] Univer sity of pressure [facility] Diastolic blood 2019-08-16 16:17:00 58 mm[Hg] Unive rsity of pressure [facility] Body temperature 2019-08-16 16:17:00 36 Lucero Univ ersity of [facility] Body weight 2019-08-16 08:21:00 79.833 kg [facility] BMI 2019-08-16 08:21:00 30.21 kg/m2 [facility] Body height 2019-08-15 13:32:00 162.6 cm [facility] Systolic blood 2019-08-05 16:11:00 145 mm[Hg] Univer sity of pressure [facility] Diastolic blood 2019-08-05 16:11:00 88 mm[Hg] Unive rsity of pressure [facility] Heart rate 2019-08-05 16:11:00 92 /min Universi ty of [facility] Respiratory rate 2019-08-05 16:11:00 19 /min [facility] Body height 2019-08-05 16:11:00 162.6 cm [facility] Body weight 2019-08-05 16:11:00 80.513 kg Universi ty [facility] BMI 2019-08-05 16:11:00 30.47 kg/m2 Universi ty [facility] Oxygen saturation in 2019-08-05 16:11:00 99 /min [facility] of Arterial blood by [facility] Pulse oximetry Branch Systolic blood 2019-02-04 15:08:00 117 mm[Hg] Univer sity of pressure [facility] Diastolic blood 2019-02-04 15:08:00 83 mm[Hg] Unive rsity of pressure [facility] Heart rate 2019-02-04 15:08:00 80 /min [facility] Respiratory rate 2019-02-04 15:08:00 20 /min [facility] Body height 2019-02-04 15:08:00 162.6 cm Universi [facility] Oxygen saturation in 2019-02-04 15:08:00 99 /min University of Arterial blood by [facility] Pulse oximetry Branch Systolic blood 2019-01-04 19:51:00 124 mm[Hg] Univer sity of pressure [facility] Diastolic blood 2019-01-04 19:51:00 83 mm[Hg] Unive rsity of pressure [facility] Heart rate 2019-01-04 19:51:00 79 /min Universi ty [facility] Respiratory rate 2019-01-04 19:51:00 16 /min [facility] Body height 2019-01-04 19:51:00 162.6 cm [facility] Body weight 2019-01-04 19:51:00 76.204 kg [facility] BMI 2019-01-04 19:51:00 28.84 kg/m2 [facility] Procedures Procedure Date / Time Performing Clinician Source Performed EXTERNAL PROVIDER RECORDS 2021-05-13 06:01:00 Doctor Unassigned, [facility] [place] [facility] POCT GLUCOSE (AUTOMATED) 2021-02-12 21:28:00 Fabby Nieves [facility] BASIC METABOLIC PANEL (NA, 2021-02-12 20:36:00 Fabby Nieves [facility] K, CL, CO2, GLUCOSE, BUN, Medica l Branch CREATININE, CA) CBC WITH DIFF 2021-02-12 20:36:00 Fabby Nieves [facility] URINALYSIS 2021-02-12 20:36:00 Fabby Nieves [facility] POCT GLUCOSE (AUTOMATED) 2021-02-12 19:33:00 Doctor Unassigned, [facility] [place] [facility] CONSENT/REFUSAL FOR 2021-02-12 19:10:35 Doctor Unassigned, [facility] DIAGNOSIS AND TREATMENT [place] [facility] POCT GLUCOSE (AUTOMATED) 2021-01-17 17:24:00 Celos Duran [facility] POCT GLUCOSE (AUTOMATED) 2021-01-17 12:38:00 Celso Duran [facility] BASIC METABOLIC PANEL (NA, 2021-01-17 09:06:00 Priyanka Haney [facility] K, CL, CO2, GLUCOSE, BUN, Medica l Branch CREATININE, CA) CBC WITH DIFF 2021-01-17 09:06:00 Priyanka Haney [facility] POCT GLUCOSE (AUTOMATED) 2021-01-16 21:11:00 Celso Duran [facility] POCT GLUCOSE (AUTOMATED) 2021-01-16 16:41:00 Celso Duran [facility] POCT GLUCOSE (AUTOMATED) 2021-01-16 12:48:00 Celso Duran [facility] CBC WITH DIFF 2021-01-16 08:25:00 Priyanka Haney [facility] POCT GLUCOSE (AUTOMATED) 2021-01-16 08:24:00 Celso Duran [facility] MAGNESIUM 2021-01-16 08:17:00 Priyanka Haney [facility] BASIC METABOLIC PANEL (NA, 2021-01-16 08:17:00 Priyanka Haney [facility] K, CL, CO2, GLUCOSE, BUN, Medica l Branch CREATININE, CA) LIPID PANEL ([id number])(TOTAL 2021-01-16 08:17:00 Priyanka Haney [facility] CHOLESTEROL, Medical Branch TRIGLYCERIDES, HDL) LOW-DENSITY LIPOPROTEIN, 2021-01-16 08:17:00 Priyanka Haney [facility] DIRECT [facility] POCT GLUCOSE (AUTOMATED) 2021-01-16 03:51:00 Celso Duran [facility] URINE CULTURE 2021-01-16 01:56:00 Priyanka Haney [facility] POCT GLUCOSE (AUTOMATED) 2021-01-16 01:06:00 Celso Duran [facility] URINALYSIS 2021-01-15 23:47:00 Priyanka Haney [facility] BLOOD CULTURE SCREEN 2021-01-15 23:39:00 Priyanka Haney [facility] PHOSPHORUS 2021-01-15 23:30:00 Lyndon Priyanka Fauzia [facility] TROPONIN I 2021-01-15 23:30:00 Lyndon Priyanka Fauzia [facility] THYROID STIMULATING 2021-01-15 23:30:00 Priyanka Haney [facility] HORMONE [facility] HEPATIC FUNCTION PANEL 2021-01-15 23:30:00 Priyanka Haney [facility] ([id number]) (ALB,T.PRO,BILI Medical Branch T,BU/BC,ALT,AST,ALK PHOS) GLYCOSYLATED HEMOGLOBIN 2021-01-15 23:30:00 Priyanka Haney [facility] (A1C) [facility] BLOOD CULTURE SCREEN 2021-01-15 23:27:00 Priyanka Haney [facility] POCT GLUCOSE (AUTOMATED) 2021-01-15 22:30:00 Celso Duran [facility] COVID-19 (ID NOW RAPID 2021-01-15 20:44:00 Priyanka Haney [facility] TESTING) Medical Branch LAB ONLY COVID 2021-01-15 20:44:00 Priyanka Haney [facility] INTERPRETATION [facility] NOTICE OF PRIVACY 2021-01-15 20:25:44 Doctor Unassigned, [facility] PRACTICES [place] [facility] CONSENT/REFUSAL FOR 2021-01-15 20:25:23 Doctor Unassigned, [facility] DIAGNOSIS AND TREATMENT [place] [facility] ASSIGNMENT OF BENEFITS 2021-01-15 20:24:58 Doctor Unassigned, [facility] [place] [facility] POCT HEMOGLOBIN A1C TEST 2021-01-01 16:39:00 Anatoly Villegas [facility] POCT GLUCOSE (AUTOMATED) 2020-12-01 17:39:[address] [facility] 2020-12-01 10:29:00 Vish [facility] BASIC METABOLIC PANEL (NA, 2020-12-01 10:29:00 Anatoly Wahl [facility] K, CL, CO2, GLUCOSE, BUN, Medica l Branch CREATININE, CA) CBC WITH DIFF 2020-12-01 10:29:00 Vish [facility] POCT GLUCOSE (AUTOMATED) 2020-12-01 02:29:00 [facility]AS 2020-12-01 00:50:00 Miguel Luo [facility] POCT GLUCOSE (AUTOMATED) 2020-11-30 23:07:00 [facility] PO[facility] ACT LOW RANGE 2020-11-30 22:17:00 [facility] POCT ACT LOW RANGE 2020-11-30 21:55:00 [facility] BASIC METABOLIC PANEL (NA, 2020-11-30 14:26:00 Lily Franks [facility] K, CL, CO2, GLUCOSE, BUN, Medica l Branch CREATININE, CA) COVID-19 (ID NOW RAPID 2020-11-30 13:21:00 Brown Woodward [facility] TESTING) Medical Branch LAB ONLY COVID 2020-11-30 13:21:00 Brown Woodward [facility] INTERPRETATION [facility] POCT GLUCOSE(AGE >30DAYS) 2020-10-07 19:39:00 Lakshmi Woodard [facility] POCT GLUCOSE (AUTOMATED) 2020-09-07 22:28:00 Jay England [facility] POCT GLUCOSE (AUTOMATED) 2020-09-07 20:47:00 Jay England [facility] POCT GLUCOSE (AUTOMATED) 2020-09-07 20:12:00 Jay England [facility] POCT GLUCOSE (AUTOMATED) 2020-09-07 16:43:00 Jay England [facility] CAROTID DUPLEX BILATERAL - 2020-09-07 15:09:10 Lily Franks [facility] BY VASCULAR LAB [facility] POCT GLUCOSE (AUTOMATED) 2020-09-07 12:50:00 Jay England [facility] COMP. METABOLIC PANEL 2020-09-07 09:28:00 Elyse Aparicio [facility] ([id number]) [facility] CBC WITH DIFF 2020-09-07 09:28:00 Jay England [facility] POCT GLUCOSE (AUTOMATED) 2020-09-07 01:42:00 Jay England [facility] CORTISOL STIMULATION 60 2020-09-06 23:08:00 Jay England [facility] CORTISOL STIMULATION 30 2020-09-06 22:36:00 Jay England [facility] CORTISOL STIMULATION 0 MIN 2020-09-06 22:05:[address] [facility] POCT GLUCOSE (AUTOMATED) 2020-09-06 21:04:00 Jay England [facility] POCT GLUCOSE (AUTOMATED) 2020-09-06 19:57:00 Jay England [facility] POCT GLUCOSE (AUTOMATED) 2020-09-06 16:40:00 Jay England [facility] POCT GLUCOSE (AUTOMATED) 2020-09-06 12:45:00 [facility]OS[facility]US 2020-09-06 11:16:00 Jay England [facility] MAGNESIUM 2020-09-06 11:16:00 [facility]andra [facility] CORTISOL AM 2020-09-06 11:16:00 Alessandra [facility] COMP. METABOLIC PANEL 2020-09-06 11:16:00 Elyse Aparicio [facility] ([id number]) Medical Branch CBC WITH DIFF 2020-09-06 11:16:00 Alessandra jonas [facility] N-TERMINAL PRO-BNP 2020-09-06 11:16:00 Alessandra jonas [facility] POCT GLUCOSE (AUTOMATED) 2020-09-06 01:07:00 [facility]astasia [facility] TROPONIN I 2020-09-06 00:13:00 Alessandra jonas [facility] SEDIMENTATION RATE 2020-09-06 00:13:00 Jay England [facility] POCT GLUCOSE (AUTOMATED) 2020-09-05 21:44:00 [facility] 2020-09-05 16:54:00 [facility]SE (AUTOMATED) 2020-09-05 13:47:00 [facility]BDOMEN PELVIS WO 2020-09-05 11:16:59 Elyse Aparicio [facility] CONTRAST [facility] CREATINE KINASE 2020-09-05 10:01:00 Alessandra jonas [facility] MAGNESIUM 2020-09-05 10:01:00 Alessandra jonas [facility] VITAMIN B12, LEVEL 2020-09-05 10:01:00 Elyse Aparicio [facility] TROPONIN I 2020-09-05 10:01:00 Alessandra jonas [facility] COMP. METABOLIC PANEL 2020-09-05 10:01:00 Elyse Aparicio [facility] ([id number]) [facility] LIPID PANEL ([id number])(TOTAL 2020-09-05 10:01:00 Jay England [facility] CHOLESTEROL, [facility] TRIGLYCERIDES, HDL) CBC WITH DIFF 2020-09-05 10:01:00 Alessandra [facility] GLYCOSYLATED HEMOGLOBIN 2020-09-05 10:01:00 Alessandra [facility] (A1C) [facility] PROTHROMBIN TIME / INR 2020-09-05 10:01:00 Alessandra jonas [facility] N-TERMINAL PRO-BNP 2020-09-05 10:01:00 Alessandra jonas [facility] VITAMIN D, 25-OH 2020-09-05 10:01:00 Alessandra [facility] PROCALCITONIN 2020-09-05 10:01:00 Alessandra [facility] URINE CULTURE 2020-09-05 05:12:00 Anastasia Giraldo [facility] COVID-19 (ID NOW RAPID 2020-09-05 05:12:00 Anastasia Giraldo [facility] TESTING) [facility] POCT GLUCOSE (AUTOMATED) 2020-09-05 04:24:00 [facility]astasia [facility]iral[facility] ACUTE CARE VENOUS BLOOD 2020-09-05 02:29:00 [facility] PHOSPHORUS 2020-09-05 02:22:00 Alessandra jonas [facility] LIPASE 2020-09-05 02:22:00 Anastasia Giraldo [facility] MAGNESIUM 2020-09-05 02:22:00 Alessandra jonas [facility] TROPONIN I 2020-09-05 02:22:00 Anastasia Giraldo [facility] THYROID STIMULATING 2020-09-05 02:22:00 Elyse Aparicio [facility] HORMONE [facility] COMP. METABOLIC PANEL 2020-09-05 02:22:00 Anastasia Giraldo [facility] ([id number]) [facility] CBC WITH DIFF 2020-09-05 02:22:00 Anastasia Giraldo [facility] URINALYSIS 2020-09-05 02:22:00 Anastasia Giraldo [facility] N-TERMINAL PRO-BNP 2020-09-05 02:22:00 Anastasia Giraldo [facility] POCT GLUCOSE (AUTOMATED) 2020-09-05 01:56:00 Doctor Juan Manuel, [facility] Name [facility] NOTICE OF PRIVACY 2020-09-05 01:52:18 Doctor Juan Manuel, [facility] PRACTICES [facility] CONSENT/REFUSAL FOR 2020-09-05 01:51:48 Doctor Juan Manuel [facility] DIAGNOSIS AND TREATMENT [facility] CONSENT/REFUSAL FOR 2020-09-04 22:21:52 Doctor Juan Manuel, [facility] DIAGNOSIS AND TREATMENT [facility] POCT HEMOGLOBIN A1C TEST 2020-09-04 00:00:[address] [facility] EXTERNAL PROVIDER RECORDS 2020-08-03 06:01:00 Doctor Juan Manuel, [facility] XR LUMBAR SPINE 4 VW 2020-05-08 21:19:59 Rashad Costa [facility] XR HIPS 2 VW LEFT 2020-05-08 21:19:59 Rashad [facility] ASSIGNMENT OF BENEFITS 2020-05-08 20:39:58 Doctor Juan Manuel, [facility] URINE CULTURE 2020-04-03 20:18:00 Adum, Sisi Montero [place] [facility] GC & CHLAMYDIA AMPLIFIED 2020-04-03 20:18:00 Adum, Sisi Montero [facility] GALV ONLY - VAGINAL 2020-04-03 20:18:00 Adum, Sisi Montero [facility] PATHOGENS BY NUCLEIC ACID Medica [facility] TESTING TRICHOMONAS AMPLIFIED 2020-04-03 20:18:00 Adum, Sisi Montero [facility] POCT URINALYSIS W/O 2020-04-03 00:00:00 Adum, Sisi Montero [facility] SPECIFIC GRAVITY [facility] POCT HEMOGLOBIN A1C TEST 2020-01-10 00:00:[address] [facility] HOSPITAL ADMISSION MISC - 2019-12-10 05:01:00 Doctor Juan Manuel, [facility] MEDICARE PATIENTS RIGHTS [facility] IMPORTANT MESSAGE BI SCREENING MAMMOGRAM 2019-11-01 17:35:15 Ernst Weeks [facility] BILATERAL Medical Branch CONSENT/REFUSAL FOR 2019-11-01 16:33:32 Doctor Unassigned, [facility] DIAGNOSIS AND TREATMENT [place] [facility] ASSIGNMENT OF BENEFITS 2019-11-01 16:33:15 Doctor Unassmarcela, Un [facility] [place] [facility] [id number] CONSENT 2019-10-11 05:01:00 Doctor Unassmarcela, [facility] [place] [facility] AGREEMENTS AUTHORIZATIONS 2019-08-30 05:01:00 Doctor Unassigned, [facility] AND IRREVOCABLE [place] [facility] ASSIGNMENTS (FORM 2001) POCT GLUCOSE (AUTOMATED) 2019-08-16 13:02:00 [facility] PO[facility]SE (AUTOMATED) 2019-08-16 09:53:00 Rhianna Romano Uni versity [facility] MAGNESIUM 2019-08-16 09:52:00 Izaiah Miles [place] [facility] BASIC METABOLIC PANEL (NA, 2019-08-16 09:52:00 Izaiah Miles [facility] K, CL, CO2, GLUCOSE, BUN, Medica l Branch CREATININE, CA) CBC WITH DIFFERENTIAL 2019-08-16 09:52:00 Izaiah [facility] POCT GLUCOSE (AUTOMATED) 2019-08-16 07:10:00 Rhianna Romano Uni versity [facility] POCT GLUCOSE (AUTOMATED) 2019-08-16 05:02:00 Rhianna Romano Uni versity [facility] CT HEAD WO CONTRAST 2019-08-16 00:49:18 Shanta Spring [facility] POCT GLUCOSE (AUTOMATED) 2019-08-15 22:14:00 Rhianna Romano [facility] POCT GLUCOSE (AUTOMATED) 2019-08-15 20:40:00 Rhianna Romano [facility] ACTIVATED PARTIAL THRMPLAS 2019-08-15 20:35:00 Izaiah Miles [facility] POCT GLUCOSE (AUTOMATED) 2019-08-15 16:53:00 Rhianna Romano Uni versity [facility] POCT ACT LOW RANGE 2019-08-15 15:35:00 Rhianna Romano [facility] POCT ACT LOW RANGE 2019-08-15 15:14:00 Rhianna Romano [facility] POCT ACT LOW RANGE 2019-08-15 14:37:00 Rhianna Romano [facility] POCT ACT LOW RANGE 2019-08-15 14:20:00 Rhianna Romano [facility] MAGNESIUM 2019-08-15 09:53:00 Izaiah [place] [facility] BASIC METABOLIC PANEL (NA, 2019-08-15 09:53:00 Izaiah Miles [facility] K, CL, CO2, GLUCOSE, BUN, Medica l Branch CREATININE, CA) CBC WITH DIFFERENTIAL 2019-08-15 09:53:00 Izaiah [facility] ACTIVATED PARTIAL THRMPLAS 2019-08-15 09:53:00 Shanta Spring [facility] POCT GLUCOSE (AUTOMATED) 2019-08-15 09:47:00 Rhianna Romano [facility] POCT GLUCOSE (AUTOMATED) 2019-08-15 06:33:00 Rhianna Romano [facility] POCT GLUCOSE (AUTOMATED) 2019-08-15 03:08:00 [facility] BASIC METABOLIC PANEL (NA, 2019-08-15 01:48:00 Izaiah Miles [facility] K, CL, CO2, GLUCOSE, BUN, Medica l Branch CREATININE, CA) ACTIVATED PARTIAL THRMPLAS 2019-08-15 01:48:00 Shanta [facility] POCT GLUCOSE (AUTOMATED) 2019-08-15 01:46:00 Rhianna Romano [facility] POCT GLUCOSE (AUTOMATED) 2019-08-14 22:29:00 Bandar Romanomad Uni [facility] POCT GLUCOSE (AUTOMATED) 2019-08-14 20:42:00 Rhianna Romano [facility] ACTIVATED PARTIAL THRMPLAS 2019-08-14 19:14:00 Abrol, Robinder U [facility] POCT GLUCOSE (AUTOMATED) 2019-08-14 16:43:00 Rhianna Romano [facility] ECHO ROUTINE W/DOPPLER 2019-08-14 14:10:31 Izaiah Miles [facility] POCT GLUCOSE (AUTOMATED) 2019-08-14 13:50:00 Rhianna Romano [facility] GALV ONLY - INFLUENZA A B 2019-08-14 13:42:00 [facility] EKG-12 LEAD 2019-08-14 13:11:24 Juan Antonio Capps [facility] ACTIVATED PARTIAL THRMPLAS 2019-08-14 10:04:00 Shanta Spring [facility] MAGNESIUM 2019-08-14 10:03:00 Izaiah Miles [facility] BASIC METABOLIC PANEL (NA, 2019-08-14 10:03:00 Izaiah Miles [facility] K, CL, CO2, GLUCOSE, BUN, Medica l Branch CREATININE, CA) CBC WITH DIFFERENTIAL 2019-08-14 10:03:00 Izaiah [facility] POCT GLUCOSE (AUTOMATED) 2019-08-14 01:18:00 Rhianna Romano [facility] POCT GLUCOSE (AUTOMATED) 2019-08-13 23:08:00 Rhianna Romano [facility] ACTIVATED PARTIAL THRMPLAS 2019-08-13 22:43:00 Shanta Spring [facility] POCT GLUCOSE (AUTOMATED) 2019-08-13 19:28:00 Rhianna Romano [facility] CORONARY ANGIOGRAPHY 2019-08-13 16:40:26 Doctor Unassigned, [facility] [place] [facility] TROPONIN I 2019-08-13 13:14:00 Saw [facility] POCT GLUCOSE (AUTOMATED) 2019-08-13 13:12:00 Rhianna Romano [facility] XR CHEST 1 VW 2019-08-13 08:08:00 [facility] MAGNESIUM 2019-08-13 05:24:00 Wen Graf [facility] TROPONIN I 2019-08-13 05:24:00 Saw [facility] BASIC METABOLIC PANEL (NA, 2019-08-13 05:24:00 Shanta Spring [facility] K, CL, CO2, GLUCOSE, BUN, Medica l Branch CREATININE, CA) CBC WITH DIFFERENTIAL 2019-08-13 05:24:00 Izaiah [facility] GLYCOSYLATED HEMOGLOBIN 2019-08-13 05:24:00 [facility] PROTHROMBIN TIME / INR 2019-08-13 05:24:00 Shanta Spring [facility] ACTIVATED PARTIAL THRMPLAS 2019-08-13 05:24:00 Shanta Spring [facility] SAGE [facility] N-TERMINAL PRO-BNP 2019-08-13 05:24:00 [facility] LEAD 2019-08-13 04:39:22 Rhianna Romano [facility] EXTERNAL PROVIDER - ADC 2019-08-05 05:01:00 Doctor Juan Manuel, [facility] CARDIOLOGY [place] [facility] NOTICE OF BILLING 2019-02-04 14:40:05 Doctor Juan Manuel, [facility] PRACTICES FOR MEDICARE [place] [facility] PATIENTS NO SHOW OR MISSED 2019-01-04 19:28:18 Doctor Juan Manuel, [facility] APPOINTMENT POLICY [place] [facility] h ACKNOWLEDGEMENT REFERRAL- REQUEST/RESPONSE 2018-12-20 05:01:00 Doctor Juan Manuel , [facility] Name Medical Branch PATIENT CORRESPONDENCE 2018-12-06 05:01:00 Doctor Juan Manuel, [facility] (LETTERS, USPS [place] [facility] DOCUMENTATION) Plan of Care Planned Activity Planned Date Details Comments Source Future Scheduled 2022 Screening for [facility] Test 00:00:00 malignant neoplasm of Medica l Branch colon (procedure) [code = 420842276] Future Scheduled 2022 Screening for [facility] Test 00:00:00 malignant neoplasm of Medica l Branch colon (procedure) [code = 486413144] Future Scheduled 2021-09-07 Creatinine [facility] Test 00:00:00 measurement Medical Branch (procedure) [code = 91173726] Future Scheduled 2021-09-07 Creatinine [facility] Test 00:00:00 measurement Medical Branch (procedure) [code = 87641169] Future Scheduled 2021-09-05 Calculated low [facility] Test 00:00:00 density lipoprotein Medical Branch cholesterol level (procedure) [code = 758097421] Future Scheduled 2021-09-05 Calculated low [facility] Test 00:00:00 density lipoprotein Medical Branch cholesterol level (procedure) [code = 027203511] Future Scheduled 2021-05-08 Depression screening [facility] Test 00:00:00 (procedure) [code = Medical Branch [id number]] Future Scheduled 2021-05-08 Depression screening [facility] Test 00:00:00 (procedure) [code = Medical Branch 002654842] Future Scheduled 2021-03-07 Hemoglobin A1c [facility] Test 00:00:00 measurement Medical Branch (procedure) [code = 28450880] Future Scheduled 2021-03-07 Hemoglobin A1c [facility] Test 00:00:00 measurement Medical [facility] (procedure) [code = [id number]] Future Scheduled 2021-01-27 INFLUENZA VACCINE [facility] Test 00:00:00 (Season Ended) [code Medical Branch = INFLUENZA VACCINE (Season Ended)] Future Scheduled 2021-01-27 INFLUENZA VACCINE [facility] Test 00:00:00 (Season Ended) [code Medical Branch = INFLUENZA VACCINE (Season Ended)] Future Scheduled 2020-10-31 Screening for [facility] Test 00:00:00 malignant neoplasm of Medica l Branch breast (procedure) [code = [id number]] Future Scheduled 2020-10-31 Screening for [facility] 00:00:00 malignant neoplasm of Medica l Branch breast (procedure) [code = 653256402] Future Scheduled 2020-09-25 Screening for [facility] 00:00:00 malignant neoplasm of Medica l Branch cervix (procedure) [code = 536195701] Future Scheduled 2020-09-25 Screening for [facility] 00:00:00 malignant neoplasm of Medica l Branch cervix (procedure) [code = 970840301] Future Scheduled 2020-05-10 Diabetic foot [facility] Test 00:00:00 examination Medical Branch (regime/therapy) [code = 114476450] Future Scheduled 2020-05-10 Diabetic foot [facility] Test 00:00:00 examination Medical Branch (regime/therapy) [code = 215972499] Future Scheduled 2019-09-01 Microalbumin [facility] Test 00:00:00 measurement, urine, Medical Branch quantitative (procedure) [code = 563937547] Future Scheduled 2019-09-01 Microalbumin [facility] Test 00:00:00 measurement, urine, Medical Branch quantitative (procedure) [code = 402894302] Future Scheduled 1991 DTaP,Tdap,and Td Univers ity [...] Test 00:00:00 (procedure) [code = Medical Branch 107330845] Future Scheduled 1990 Hepatitis C screening [facility] 00:[facility]:00 (procedure) [code = Medical Branch 594738438] Future Scheduled 1988 SARS-CoV-2 (COVID-19) [facility] 00:00:00 Vaccine (1) [code = Medical Branch SARS-CoV-2 (COVID-19) Vaccine (1)] Future Scheduled 1988 SARS-CoV-2 (COVID-19) [facility] 00:00:00 Vaccine (1) [code = Medical Branch SARS-CoV-2 (COVID-19) Vaccine (1)] Future Scheduled 1982 Examination of retina [facility] 00:00:00 (procedure) [code = Medical Branch 098465262] Future Scheduled 1982 Examination of retina [facility] 00:00:00 (procedure) [code = Medical Branch 920304107] Future Scheduled [facility] 0[facility] COMBINED SERIES Medica l Branch (1 of 1 - PPSV23) [code = PNEUMOCOCCAL 0-64 YEARS COMBINED SERIES (1 of 1 - PPSV23)] Future Scheduled 1978 PNEUMOCOCCAL 0-64 Univer [facility] Test 00:00:00 YEARS COMBINED SERIES Medica l Branch (1 of 1 - PPSV23) [code = PNEUMOCOCCAL 0-64 YEARS COMBINED SERIES (1 of 1 - PPSV23)] Encounters Start End Encounter Admission Attending Care Care Encounter Source Date/Time Date/Time Type Type Clinicians Facility Department ID 2021-03-29 Emergency [facility] [id number] Univers 23:28:09 ity of [facility] 2021-03-28 Emergency X [facility] [id number] Univers 11:58:59 ity of [facility] 2021-03-28 Emergency [facility] [id number] Univers 11:58:17 ity of [facility] 2021-03-26 Emergency [facility] [id number] Univers 12:39:58 ity of [facility] 2021-07-09 2021-07-09 Outpatient R MARK [facility] [id number] 5Q-20 Univers 13:30:00 13:30:00 ANATOLY [id number] ity of [facility] 2021-06-21 2021-06-21 [facility] [id number] Q-20 Univers 16:00:00 16:00:00 WONDIFUL [id number] ity o f [facility] 2021-06-21 2021-06-21 [facility] [id number] Univers 16:00:00 16:00:00 WONDIFUL ity o f [facility] 2021-05-15 2021-05-15 Refleticia [facility] 1.2.840.114 [id number] Univers 00:00:00 00:00:00 Wondiful A HEALTH 350.1.13.10 ity [facility] 4.2.7.2.686 Raffy as PROFESSIO [phone] Nm dical [place] [address] Branch OFFICE BUILDING ONE 2021-05-13 2021-05-13 Orders Doctor VAISHALI 1.2.840.114 [id number] Univers 00:00:00 00:00:00 Only Unassigned, AIDA 350.1.13.10 ity of [place] [facility] 4.2.7.2.686 Raffy as [phone] [facility] 009 Branch 2021-02-12 2021-02-12 Emergency [facility] 1.2.840.114 [id number] Univers 14:34:00 17:16:00 Fabby Hawkins 350.1.13.10 it[place] [phone] [facility] 084 Branch 2021-02-12 2021-02-12 Office [facility] 1.2.840.114 [id number] Univers 13:04:40 15:13:23 Visit [facility] 350.1.13.10 it y of [place] 4.2.7.2.686 Raffy as Charly?Blea [phone] [address] Medical Office [facility] 2021-02-12 2021-02-12 [facility] [id number] -20 Univers 13:00:00 13:00:00 [facility] [id number] ity [facility] 2021-02-12 2021-02-12 [facility] [id number] Univers 13:00:00 13:00:00 [facility] ity [facility] 2021-01-19 2021-01-19 Transition Matthew Daniel 1.2.840.114 [id number] Univers 00:00:00 00:00:00 of Veronika Mata 350.1.13.10 it y [place] [phone] [facility] 403 Branch 2021-01-15 2021-01-17 Hospital Roger [facility] 1.2.840.114 [id number] Univers 15:17:00 13:06:00 Encounter Celso Hawkins 350.1.13.10 ity of [place] [phone] [facility] 081 Branch 2021-01-15 2021-01-15 Office [facility] 1.2.840.114 [id number] Univers 14:09:25 15:11:21 Visit Lily Hawkins 350.1.13.10 [place] [phone] [facility] 059 [facility] 2021-01-15 2021-01-15 Outpatient R GREGORY, [facility] [id number] -20 Univers 14:40:00 14:40:00 LILY [id number] ity o [facility] 2021-01-15 2021-01-15 Outpatient R GREGORY, [facility] [id number] Univers 14:40:00 14:40:00 LILY turner o [facility] 2021-01-01 2021-01-01 Office [facility] 1.2.067.965 [id number] Univers 11:28:43 12:58:14 Visit Anatoly Hawkins 350.1.13.10 i ty kranthi [place] [phone] [facility] 220 [facility] 2021-01-01 2021-01-01 [facility] [id number] 5Q-20 Univers 11:30:00 11:30:00 ANATOLY [id number] [facility] 2021-01-01 2021-01-01 Outpatient R [facility] [id number] Univers 11:30:00 11:30:00 ANATOLY [facility] 2020-12-18 2020-12-18 Amy [facility] 1.2.840.114 [id number] Univers 00:00:00 00:00:00 Wondiful A Health 350.1.13.10 ity kranthi [place] 4.2.7.2.686 Raffy as Professio [phone] [facility] 044 [place] Office Building One 2020-12-02 2020-12-02 [facility] [id number] -20 Univers 16:00:00 16:00:00 LILY [id number] jiay o [facility] 2020-12-02 2020-12-02 Outpatient [facility] [id number] Univers 16:00:00 16:00:00 LILY ity o f [facility] 2020-11-30 2020-12-01 [facility] Lily Franks 1.2.840.114 [id number] Univers 17:33:00 15:15:00 Encounter Ra [place] Aida 350.1.1 3.10 [facility] 4.2.7.2 .686 [facility] [phone] [place] 644989 Branch 2020-12-01 2020-12-01 [facility] [id number] Q-20 Univers 14:00:00 14:00:00 WONDIFUL [id number] ity o f [facility] 2020-12-01 2020-12-01 Out[facility] [id number] Univers 14:00:00 14:00:00 WONDIFUL ity o f [facility] 2020-11-30 2020-11-30 Outpatient [facility] [id number] -20 Univers 08:00:00 08:00:00 [id number] [facility] 2020-11-30 2020-11-30 Outpatient R [facility] [id number] Univers 08:00:00 08:00:00 ity [facility] 2020-11-30 2020-11-30 [facility] Diana Woodward 1.2.840.114 [id number] Univers 07:45:00 07:59:00 Encounter Brown Avery Aida 350.1.13.10 [facility] 4.2.7.2.686 [place]affy as [phone] [place] [address] Branch 2020-11-27 2020-11-27 Outpatient [facility] [id number] 5Q-20 Univers 14:00:00 14:00:00 ANATOLY [id number] ity [facility] 2020-11-27 2020-11-27 Outpatient Sonya [facility] [id number] Univers 14:00:00 14:00:00 ANATOLY ity [facility] 2020-11-25 2020-11-25 Telephone GregoryDiana 1.2.567.705 [id number] Univers 00:00:00 00:00:00 Qiagerry [place] 350.1.13.10 i ty of Hospital 4.2.7.2.686 Raffy as [phone] [address] 2020-11-25 2020-11-25 Telephone [facility] 1.2.326.748 [id number] Univers 00:00:00 00:00:00 Patient [place] 350.1.13.10 i ty of [place] Not [place] 4.2.7.2.686 Raffy as Have A Professio [phone] Nm dical nal 843 [facility] 2020-11-16 2020-11-16 Telephone GregoryDiana 1.2.380.985 [id number] Univers 00:00:00 00:00:00 Qiagerry Zhuy 350.1.13.10 i ty of Hospital 4.2.7.2.686 Raffy as [phone] [address] 2020-11-13 2020-11-13 Office [facility] 1.2.840.114 [id number] Univers 14:46:41 15:21:27 Visit Lily Hawkins 350.1.13.10 it[place] [phone] Nm dical nal 059 [facility] 2020-11-13 2020-11-13 Outpatient R GREGORY [facility] [id number] Univers 14:00:00 14:00:00 LILY turner o f [facility] 2020-11-13 2020-11-13 Outpatient R IGOR [facility] [id number] Q-20 Univers 13:00:00 13:00:00 WONDIFUL [id number] ity o f [facility] 2020-11-12 2020-11-12 Telephone [facility] 1.2.840.114 [id number] Univers 00:00:00 00:00:00 Wondiful A Health 350.1.13.10 ity of [place] 4.2.7.2.686 Raffy as Professio [phone] Me dical nal 044 [facility] 2020-10-28 2020-10-28 Pre Visit Igor [facility] 1.2.840.114 [id number] Univers 00:00:00 00:00:00 Outreach Wondiful A Health 350.1.13.10 ity of [place] 4.2.7.2.686 [place]affy as Professio [phone] [address] 2020-10-07 2020-10-07 Office Vance [facility] 1.2.840.114 [id number] Univers 13:57:34 15:30:50 Visit Wentong [place] 350.1.13.10 i ty of [place] [phone] [facility] 220 [facility] 2020-10-07 2020-10-07 [facility] [id number] -[id number] Univers 14:00:00 14:00:00 [facility] [id number] ity [facility] 2020-10-07 2020-10-07 [facility] [id number] Univers 14:00:00 14:00:00 [facility] ity [facility] 2020-10-06 2020-10-06 Outpatient [facility] [id number] -[id number] Univers 14:30:00 14:30:00 [facility] [id number] ity [facility] 2020-10-06 2020-10-06 Outpatient [facility] [id number] Univers 14:30:00 14:30:00 [facility] 2020-10-01 2020-10-01 Office [facility] 1.2.840.114 [id number] 15:08:27 16:09:31 Visit Wondiful A Health 350.1.13.10 [place] 4.2.7.2.686 Professio [phone] [address] 2020-10-01 2020-10-01 Office [facility] 1.2.840.114 [id number] Univers 15:08:27 16:09:31 Visit Wondiful A Health 350.1.13.10 ity of [place] 4.2.7.2.686 Raffy as Professio [phone] [place] [address] Branch Office Building One 2020-10-01 2020-10-01 Outpatient R IGOR [facility] [id number] Univers 15:00:00 15:00:00 WONDIFUL ity o f [facility] 2020-09-26 2020-09-26 Refleticia [facility] 1.2.840.114 [id number] Univers 00:00:00 00:00:00 Wondiful A Health 350.1.13.10 ity of [place] 4.2.7.2.686 Raffy as Professio [phone] [address] Office Building One 2020-09-24 2020-09-24 [facility] 1.2.840.114 [id number] Univers 00:00:00 00:00:00 Wondiful A Health 350.1.13.10 ity of [place] 4.2.7.2.686 [place]aff[place] as Professio [phone] [address] Office [facility] One 2020-09-11 2020-09-11 [facility] 1.2.840.114 [id number] Univers 00:00:00 00:00:00 Wondiful A Health 350.1.13.10 ity of [place] 4.2.7.2.686 [place]affy as Professio [phone] [address] Office Building One 2020-09-09 2020-09-09 Transition Matthew Gonzalez 1.2.840.114 [id number] Univers 00:00:00 00:00:00 of Care Garcia A Mata 350.1.13.10 [place] [phone] [address] 2020-09-04 2020-09-07 [facility] Ronnie Murry [facility] 1.2.8 40.114 [id number] Univers 20:58:00 18:15:00 Encounter Anastasia Giraldo [place] 350.1.13.1 0 ity of Elyse Aparicio 4.2.7.2.686 [facility] [phone] Medical 081 Branch 2020-09-04 2020-09-04 Office [facility] 1.2.036.124 [id number] Univers 16:01:54 17:11:05 Visit Anatoly Hawkins 350.1.13.10 i ty of [place] [phone] Nm dical nal 220 [facility] 2020-09-04 2020-09-04 [facility] [id number] 5Q-20 Univers 16:00:00 16:00:00 ANATOLY [id number] [facility] 2020-09-04 2020-09-04 Out[facility] [id number] Univers 16:00:00 16:00:00 [facility] 2020-09-04 2020-09-04 Outpatient [facility] [id number] Univers 16:00:00 16:00:00 [facility] 2020-09-04 2020-09-04 Orders Doctor VAISHALI 1.2.840.114 [id number] Univers 00:00:00 00:00:00 Only Unassigned, AIDA 350.1.13.10 ity of [place] [facility] 4.2.7.2.686 Raffy as [phone] [address] 2020-08-13 2020-08-13 Patient [facility] 1.2.840.114 [id number] Univers 00:00:00 00:00:00 Outreach George PRIMARY 350.1.13.10 i ty of [facility] 4.2.7.2.[place] [phone] Nm dical 388 Branch 2020-08-04 2020-08-04 Refill [facility] 1.2.449.259 [id number] Univers 00:00:00 00:00:00 Anatoly Hawkins 350.1.13.10 i ty of [place].7.2.[place] [phone] Me dical nal 220 [facility] 2020-08-04 2020-08-04 Amy [facility] 1.2.840.114 [id number] Univers 00:00:00 00:00:00 Wondiful A Health 350.1.13.10 ity of [place] 4.2.7.2.686 Raffy as Professio [phone] [address] Office [facility] One 2020-08-03 2020-08-03 Orders Doctor VAISHALI 1.2.840.114 [id number] Univers 00:00:00 00:00:00 Only Unassigned, AIDA 350.1.13.10 ity of [place] [facility] 4.2.7.2.686 Raffy as [phone] [address] 2020-07-16 2020-07-16 Outpatient Sonya COSTA [facility] [id number] Univers 11:15:00 11:15:00 WONDIFUL ity o f [facility] 2020-06-22 2020-06-22 Amy [facility] 1.2.840.114 [id number] Univers 00:00:00 00:00:00 Wondiful A Health 350.1.13.10 ity of [place] 4.2.7.2.686 Raffy as Professio [phone] [address] One 2020-06-19 2020-06-19 Outpatient R IGOR [facility] [id number] Q-20 Univers 14:00:00 14:00:00 WONDIFUL [id number] ity o f [facility] 2020-06-08 2020-06-08 [facility] 1.2.840.114 [id number] Univers 00:00:00 00:00:00 Wondiful A Health 350.1.13.10 ity of [place] 4.2.7.2.686 Raffy as Professio [phone] [address] One 2020-06-05 2020-06-05 Amy [facility] 1.2.840.114 [id number] Univers 00:00:00 00:00:00 Wondiful A Health 350.1.13.10 ity of [place] 4.2.7.2.686 Raffy as Professio [phone] [address] Office [facility] One 2020-05-28 2020-05-28 Outpatient R IGOR [facility] [id number] Q-20 Univers 15:00:00 15:00:00 WONDIFUL [id number] ity o f [facility] 2020-05-28 2020-05-28 [facility] [id number] Univers 15:00:00 15:00:00 WONDIFUL ity o f [facility] 2020-05-19 2020-05-19 [facility] 1.2.840.114 [id number] Univers 00:00:00 00:00:00 Wondiful A Health 350.1.13.10 ity of [place] 4.2.7.2.686 [place] as Professio [phone] [address] 2020-05-14 2020-05-14 [facility] 1.2.840.114 [id number] Univers 00:00:00 00:00:00 Wondiful A Health 350.1.13.10 ity of [place] 4.2.7.2.686 [place]aff[place] as Professio [phone] [address] 2020-05-13 2020-05-13 [facility] 1.2.840.114 [id number] Univers 00:00:00 00:00:00 Management Wondiful A Health 350.1.13.10 ity of [place] 4.2.7.2.686 Raffy as Professio [phone] [address] Office [facility] 2020-05-08 2020-05-08 [facility] 1.2.381.637 [id number] Univers 14:47:36 23:59:00 Encounter Wondiful A [place] 350.1.13.10 ity of [place] 4[place]2.[place].2.[place] [phone] [facility] [address] [place] 2020-05-08 2020-05-08 Outpatient R MARK [facility] [id number] 5Q-20 Univers 16:30:00 16:30:00 ANATOLY [id number] ity of [facility] 2020-05-08 2020-05-08 Outpatient R MARK [facility] [id number] Univers 16:30:00 16:30:00 ANATOLY ity [facility] 2020-05-08 2020-05-08 Office [facility] 1.2.840.114 [id number] Univers 13:10:21 13:58:56 [facility] 350.1.13.10 ity of [place] 4.2.7.2.686 Raffy as Professio [phone] Me dical nal [address] [place] Office Building One 2020-05-08 2020-05-08 Orders Doctor VAISHALI 1.2.840.114 [id number] Univers 00:00:00 00:00:00 Only Unassigned, AIDA 350.1.13.10 ity of [place] [facility] 4.2.7.2.686 Raffy as [phone] [address] 2020-05-01 2020-05-01 Outpatient R IGOR [facility] [id number] Q-20 Univers 10:30:00 10:30:00 WONDIFUL [id number] ity o f [facility] 2020-05-01 2020-05-01 [facility] [id number] Univers 10:30:00 10:30:00 WONDIFUL ity o f [facility] 2020-04-17 2020-04-17 Tele[facility] [place] 1.2.840.114 [id number] Univers 11:00:00 11:30:00 ne Visit Sisi Hawkins 350.1.13.10 ity of [place] [phone] Nm dical nal 134 [facility] 2020-04-17 2020-04-17 Outpatient R SHILA [facility] [id number] -20 Univers 11:00:00 11:00:00 SISI ity [facility] 2020-04-17 2020-04-17 Outpatient R SHILA [facility] [id number] Univers 11:00:00 11:00:00 SISI ity [facility] 2020-04-14 2020-04-14 Refleticia [facility] 1.2.840.114 [id number] Univers 00:00:00 00:00:00 Wondiful A Health 350.1.13.10 ity of [place] 4.2.7.2.686 Raffy as Professio [phone] Nm dical nal 044 [facility] One 2020-04-13 2020-04-13 [facility] BorjaVillegasGALLUP [facility] 1.2.151.239 [id number] Univers 00:00:00 00:00:00 Anatoly Hawkins 350.1.13.10 i ty of [place].2.[place] [phone] Nm dical nal 220 [facility] 2020-04-08 2020-04-08 Telephone [facility] [place] 1.2.400.637 [id number] Univers 00:00:00 00:00:00 Sisi Hawkins 350.1.13.10 ity of [place] 4[place].2.[place] [phone] Nm dical nal 134 [facility] 2020-04-07 2020-04-07 Case [facility] [place] 1.2.840.114 [id number] Univers 00:00:00 00:00:00 Management Sisi Hawkins 350.1.13.10 ity of [place] 4[place].7.2.[place] [phone] Nm dical nal 134 [facility] 2020-04-03 2020-04-03 Office [facility] [place] 1.2.840.114 [id number] Univers 13:15:01 14:30:02 Visit Sisi Hawkins 350.1.13.10 ity of [place] 4[place].7.2.[place] [phone] Nm dical nal 134 [facility] 2020-04-03 2020-04-03 Outpatient R ADUM, [facility] [id number] Univers 13:30:00 13:30:00 SISI turner of [facility] 2020-04-03 2020-04-03 Outpatient R AD, [facility] [id number] -[id number] Univers 10:30:00 10:30:00 SISI ity of [facility] 2020-04-03 2020-04-03 Outpatient R SHILA, [facility] [id number] Univers 10:30:00 10:30:00 SISI ity of [facility] 2020-04-01 2020-04-01 Telephone Serena Garsia [facility] 1.2.840.114 [id number] Univers 00:00:00 00:00:00 Cam [place] 350.1.13.10 i ty of [place].2.[place] [phone] Nm dicne nal 134 [facility] 2020-03-20 2020-03-20 Refleticia [facility] 1.2.840.114 [id number] Univers 00:00:00 00:00:00 Wondiful A Health 350.1.13.10 ity of [place] 4.2.7.2.686 Raffy as Professio [phone] Nm dical nal 044 [facility] 2020-03-09 2020-03-09 Refleticia [facility] 1.2.840.114 [id number] Univers 00:00:00 00:00:00 Wondiful A Health 350.1.13.10 ity of [place] 4.2.7.2.686 Raffy as Professio [phone] Nm dical nal 044 [place] Office [facility] One 2020-02-17 2020-02-17 Telephone Igor [facility] 1.2.840.114 [id number] Univers 00:00:00 00:00:00 Wondiful A Health 350.1.13.10 ity of [place] 4.2.7.2.686 Raffy as Professio [phone] Nm dical nal 044 [place] Office [facility] One 2020-02-17 2020-02-17 Telephone Igor [facility] 1.2.840.114 [id number] Univers 00:00:00 00:00:00 Wondiful A Health 350.1.13.10 ity of [place] 4.2.7.2.686 Raffy as Professio [phone] Nm dical nal 044 [place] Office [facility] One 2020-01-13 2020-01-13 Refleticia [facility] 1.2.840.114 [id number] Univers 00:00:00 00:00:00 Wondiful A Health 350.1.13.10 ity of [place] 4.2.7.2.686 Raffy as Professio [phone] Nm dical nal 0[address] [place] Office Building One 2020-01-11 2020-01-11 Butt Welder 1, Adc Lab [facility] 1.2.840.114 [id number] Univers 10:55:34 11:10:34 Visit Anatoly Villegas [id number] [id number] [phone] [facility] [address] [place] 2020-01-11 2020-01-11 Outpatient R [facility] [id number] Univers 11:00:00 11:00:00 [id number] ity [facility] 2020-01-11 2020-01-11 Outpatient R [facility] [id number] Univers 11:00:00 11:00:00 ity [facility] 2020-01-10 2020-01-10 [facility] 1..[id number] [id number] Univers 16:40:13 17:43:53 Visit Anatoly Hawkins [id number] [id number] [facility] [phone] [facility] nal [address] [facility] 2020-01-10 2020-01-10 [facility] [id number] Univers 16:30:00 16:30:00 ANATOLY [id number] ity [facility] 2020-01-10 2020-01-10 [facility] [id number] Univers 16:30:00 16:30:00 [facility] 2019-12-10 2019-12-10 Orders Doctor TOM 1.2.840.114 [id number] Univers 00:00:00 00:00:00 Only Unassigned, AIDA 350.1.13.10 ity of [place] [facility] 4.2.7.2.686 Raffy as [phone] [facility] [address] [place] 2019-12-10 2019-12-10 [facility]phone [facility] 1.2.840.114 [id number] Univers 00:00:00 00:00:00 Anatoly Hawkins 350.1.13.10 i [place] [phone] [facility] 220 [facility] 2019-12-05 2019-12-05 Refleticia [facility] 1.2.821.555 [id number] Univers 00:00:00 00:00:00 Anatoly Hawkins 350.1.13.10 [place] [phone] [facility] 220 [facility] 2019-11-06 2019-11-06 [facility] [id number] -[id number] Univers 15:40:00 15:40:00 LILY [id number] yue o [facility] 2019-11-06 2019-11-06 Outpatient [facility] [id number] Univers 15:40:00 15:40:00 [facility] 2019-11-03 2019-11-03 [facility] 1.2.840.114 [id number] Univers 00:00:00 00:00:00 Wonful A [facility] 350.1.13.[address] [facility] 4.2.7.2.686 Raffy as Professio [phone] [facility] [address] [place] Office [facility] 2019-11-01 2019-11-01 Outpatient R KILO [facility] [id number] Univers 11:35:42 23:59:00 ERNST ity [facility] 2019-11-01 2019-11-01 [facility] ..840.114 [id number] Univers 11:35:00 23:59:00 [facility] Ernst aHwkins 350.1.13.10 ity of [place] [phone] [address] 2019-11-01 2019-11-01 [facility] [id number] 5Q-20 Univers 11:40:00 11:40:00 ERNST Jones [facility] 2019-11-01 2019-11-01 Orders Doctor VAISHALI 1.2.840.114 [id number] Univers 00:00:00 00:00:00 Only Unassigned, AIDA 350.1.13.10 ity of [place] [facility] 4.2.7.2.686 Raffy as [phone] [address] 2019-10-25 2019-10-25 [facility] [id number] 5Q-20 Univers 00:00:00 00:00:00 ERNST [id number] [facility] 2019-10-11 2019-10-11 Office [facility] 1.2.054.270 [id number] Univers 14:59:15 16:12:30 Visit Ernst Hawkins 350.1.13.10 i [place] [phone] Nm dical nal 134 [facility] 2019-10-11 2019-10-11 Outpatient [facility] [id number] 5Q-20 Univers 15:00:00 15:00:00 ERNST [id number] [facility] 2019-10-11 2019-10-11 Out[facility] [id number] Univers 15:00:00 15:00:00 ERNST [facility] 2019-10-11 2019-10-11 Orders Doctor VAISHALI 1.2.840.114 [id number] Univers 00:00:00 00:00:00 Only Unassigned, AIDA 350.1.13.10 [facility] [place] [facility] 4.2.7.2.686 Raffy as [phone] [address] 2019-10-07 2019-10-07 Out[facility] [id number] Univers 14:00:00 14:00:00 [facility] 2019-09-30 2019-09-30 [facility] 1.2.837.774 [id number] Univers 00:00:00 00:00:00 Anatoly Hawkins 350.1.13.10 i [place] [phone] Nm dical nal 220 [facility] 2019-09-20 2019-09-20 Outpatient R MARK [facility] [id number] Univers 16:30:00 16:30:00 ANATOLY itmargarette [facility] 2019-09-20 2019-09-20 Telemedici [facility] 1.2.840.114 [id number] Univers 09:52:35 10:22:35 ne Visit Anatoly Hawkins 350.1.13.10 ity of [place] [phone] Nm dical nal 220 [facility] 2019-08-30 2019-08-30 Butt Welder 2, Adc Lab [facility] 1.2.840.114 [id number] Univers 09:08:00 09:23:00 Visit Lily Franks 350.1.13.10 ity of [place] [phone] [facility] 353 [facility] 2019-08-30 2019-08-30 Outpatient R [facility] [id number] -[id number] Univers 09:15:00 09:15:00 [id number] ity of [facility] 2019-08-30 2019-08-30 Out[facility] [id number] Univers 09:15:00 09:15:00 LILY ity o f [facility] 2019-08-30 2019-08-30 Orders Doctor TOM 1.2.840.114 [id number] Univers 00:00:00 00:00:00 Only Unassigned, AIDA 350.1.13.10 [facility] 4.2.7.2.686 Raff[place] as [phone] [address] 2019-08-22 2019-08-22 Outpatient R IGOR [facility] [id number] Q-20 Univers 14:00:00 14:00:00 WONDIFUL [id number] ity o f [facility] 2019-08-22 2019-08-22 Outpatient R IGOR [facility] [id number] Univers 14:00:00 14:00:00 WONDIFUL ity o f [facility] 2019-08-22 2019-08-22 Telemedici [facility] 1.2.840.114 [id number] Univers 09:19:01 09:49:01 ne Visit Wondiful [facility] 350.1.13.10 ity of [place] 4.2.7.2.686 Raffy as Professio [phone] [address] One 2019-08-22 2019-08-22 Transition Matthew Chávez 1.2.840.114 [id number] Univers 00:00:00 00:00:00 of Care Jessica Mata 350.1.13.10 it y of [place]2.7.2.[place] [phone] [facility] [address] [place] 2019-08-20 2019-08-20 Transition David Chávezjoshua 1.2.840.114 [id number] Univers 00:00:00 00:00:00 of Care Jessica Mata 350.1.13.10 it y of [place]2.7.2.[place] [phone] [facility] [address] [place] 2019-08-19 2019-08-19 Telephone [facility] 1.2.840.114 [id number] Univers 00:00:00 00:00:00 Wondiful [facility] 350.1.13.10 ity of [place] 4.2.7.2.686 [place]aff[place] Professio [phone] [address] 2019-08-12 2019-08-16 Inpatient U JUAN ANTONIO [facility] [id number] Univers 22:36:00 12:57:00 RHIANNA ity o f [facility] 2019-08-12 2019-08-16 Hospital Diana Romano 1.2.840.114 [id number] Univers 22:36:00 12:57:00 Encounter Rhianna Aida 350.1.13.10 ity of Hospital 4.2.7.2.686 [place]aff[place] as [phone] [facility] [address] [place] 2019-08-16 2019-08-16 Outpatient R [facility] [id number] -[id number] Univers 10:00:00 10:00:00 [id number] ity of [facility] 2019-08-16 2019-08-16 Outpatient R [facility] [id number] Univers 10:00:00 10:00:00 ity of [facility] 2019-08-12 2019-08-12 Telephone Gregory [facility] [id number] [id number] Univers 00:00:00 00:00:00 Lily Hawkins 350.1.13.10 ity of [place] [phone] [address] 2019-08-09 2019-08-09 Telephone GregoryDiana 1.2.540.463 [id number] Univers 00:00:00 00:00:00 Lily Zhuy 350.1.13.10 i ty of [facility] 4.2.7.2.686 [place]aff[place] as [phone] [address] 2019-08-07 2019-08-07 Telephone GregoryDiana 1.2.580.286 [id number] Univers 00:00:00 00:00:00 Lily Parra 350.1.13.10 i ty of [facility] 4.2.7.2.686 [place]aff[place] as [phone] [address] 2019-08-05 2019-08-06 Office [facility] 1.2.840.114 [id number] Univers 10:54:42 21:31:12 Visit Lily Hawkins 350.1.13.10 ity of [place].2.[place] [phone] [address] 2019-08-05 2019-08-05 Outpatient R GREGORY [facility] [id number] Univers 11:20:00 11:20:00 LILY turner o f [facility] 2019-08-05 2019-08-05 Orders Doctor VAISHALI 1.2.840.114 [id number] Univers 00:00:00 00:00:00 Only Unassigned, AIDA 350.1.13.10 ity of [place] [facility] 4.2.7.2.686 Raffy as [phone] [address] 2019-02-04 2019-02-04 Office [facility] 1.2.840.114 [id number] Univers 09:40:44 10:41:11 Visit Lily Hawkins 350.1.13.10 ity of [place].2.[place] [phone] Nm dical nal 0[address] [facility] 2019-02-04 2019-02-04 Orders Doctor VAISHALI 1.2.840.114 [id number] Univers 00:00:00 00:00:00 Only Unassigned, AIDA 350.1.13.10 ity of [place] [facility]PITAL 4.2.7.2.686 Raffy as [phone] [address] 2019-01-04 2019-01-04 Office Mark [facility] 1.2.842.775 [id number] [facility] 14:30:15 15:51:35 Visit Anatoly Rodriguez Shruthi 350.1.13.10 i ty of [place].2.[place] [phone] [facility] [address] [facility] 2019-01-04 2019-01-04 Orders Doctor VAISHALI 1.2.840.114 [id number] Univers 00:00:00 00:00:00 Only Unassigned, AIDA 350.1.13.10 ity of [place] H[facility]PITAL 4.2.7.2.686 Raffy as [phone] [address] 2018-12-20 2018-12-20 Orders Doctor VAISHALI 1.2.840.114 [id number] Univers 00:00:00 00:00:00 Only Unassigned, AIDA 350.1.13.10 ity of [place] [facility]PITAL 4.2.7.2.686 Raffy as [phone] [address] 2018-12-06 2018-12-06 Orders Doctor VAISHALI 1.2.840.114 [id number] Univers 00:00:00 00:00:00 Only Unassigned, AIDA 350.1.13.10 ity of [place] [facility]PITAL 4.2.7.2.686 Raffy as [phone] [address] 2018-06-27 2018-06-27 [facility] [id number] 11:57:00 11:57:00 t [facility] Medicine Outpati ent Clinics 2018-06-15 2018-06-15 [facility] [id number] 16:24:00 16:24:00 Havsjo Delikatesser [facility] Outpati ent Clinics 2018-06-13 2018-06-13 [facility] [id number] 13:30:00 13:30:00 Havsjo Delikatesser [employer] [facility] Outpati ent Clinics 2017-12-12 2017-12-12 [facility] [id number] 13:22:00 13:22:00 t Havsjo Delikatesser [employer] [facility] Outpati ent Clinics 2017-11-20 2017-11-20 [facility] [id number] 10:30:00 10:30:00 Havsjo Delikatesser [employer] [facility] Outpati ent Clinics 2017-11-02 2017-11-02 [facility] [id number] 15:15:00 15:15:00 [facility] [employer] [facility] Results Test Description Test Time Test Comments Results Result Comments Source POCT GLUCOSE (AUTOMATED) 2021-02-12 21:30:54 Test Item Value Reference Range Interpretation Comme nts POCT GLU (test code = 1708078426) 441 mg/dL 70-110 H Lab Interpretation (test code = 20361-5) [facility]normal [facility]2021-[facility]-12 21:30:54 Test Item Value Reference Range Interpretation Comments POCT GLU (test code = 8386883122) 441 mg/dL 70-110 H Lab Interpretation (test code = Abnormal 35634-7) [facility] (NA, K, CL, CO2, GLUCOSE, BUN, CREATININE, CA)2021-02-12 21:22:44 Test Item Value Reference Range Interpretation Comments NA (test code = 128 mmol/L 135-145 L 5417460146) K (test code = 4.3 mmol/L 3.5-5.0 4561829036) CL (test code = 99 mmol/L 98-108 2743952880) CO2 TOTAL (test code = 19 mmol/L 23-31 L 4884686033) AGAP (test code = 2-16 3133004909) BUN (test code = 13 mg/dL 7-23 5730054893) GLUCOSE (test code = 522 mg/dL 70-110 HH 6902620343) CREATININE (test code = 0.62 mg/dL 0.50-1.04 6626946656) CALCIUM (test code = 8.2 mg/dL 8.6-10.6 L 5951668287) eGFR (test code = mL/min/1.73m2 2363881508) NISHA (test code = NISHA) Association of [...] tests). Lab Interpretation Abnormal (test code = 61827-9) [facility] METABOLIC PANEL (NA, K, CL, CO2, GLUCOSE, BUN, CREATININE, CA)2021-02-12 21:22:44 Test Item Value Reference Range Interpretation Comments NA (test code = 128 mmol/L 135-145 L 0357046218) K (test code = 4.3 mmol/L 3.5-5.0 3001423571) CL (test code = 99 mmol/L 98-108 8288706637) CO2 TOTAL (test code = 19 mmol/L 23-31 L 1965652258) AGAP (test code = 2-16 5563615204) BUN (test code = 13 mg/dL 7-23 3975050698) GLUCOSE (test code = 522 mg/dL 70-110 HH 2733103931) CREATININE (test code = 0.62 mg/dL 0.50-1.04 2547015982) CALCIUM (test code = 8.2 mg/dL 8.6-10.6 L 1104516590) eGFR (test code = mL/min/1.73m2 9744001180) NISHA (test code = NISHA) Association of [...] tests). Lab Interpretation Abnormal (test code = 86265-3) [facility] WITH [id number] 20:50:11 Test Item Value Reference Range Interpretation Comments WBC (test code = See_Comment [Automated message] 6690-2) The system [employer] generated this result transmitted ref erence range: 4.30 - 1 1.10 10*3/?L. The re ference range was not u sed to interpret this result as normal/abnor mal. RBC (test code = See_Comment [Automated message] 789-8) The system [employer] generated this result transmitted ref erence range: [...] RDW-SD (test code 40.4 fL 39.0-49.9 = 97971-1) RDW-CV (test code 12.7 % 12.0-15.5 = 788-0) PLT (test code = See_Comment [Automated message] 777-3) The system [employer] generated this result transmitted ref erence range: 166 - 35 8 10*3/?L. The re ference range was not u sed to interpret this result as normal/abnor mal. MPV (test code = 10.3 fL 9.5-12.9 14416-5) NRBC/100 WBC (test See_Comment [Automat ed message] code = 9421973699) The syste HERMEL DELOR which generated this result transmitted ref erence range: 0.0 - 10 .0 /100 WBCs. The refer ence range was not u sed to interpret this result as normal/abnor mal. NRBC x10^3 (test <0.01 See_Comment [Automated message] code = 8720329125) The syste m which generated this result transmitted ref erence range: 10*3/?L. The reference range was not used to interpr et this result as normal/abnormal . GRAN MAT (NEUT) % 68.0 % (test code = 770-8) IMM GRAN % (test 0.30 % code = 0807674555) LYMPH % (test code 23.0 % = 736-9) MONO % (test code 5.0 % = 5905-5) EOS % (test code = 3.0 % 713-8) BASO % (test code 0.7 % = 706-2) GRAN MAT 6.52 10*3/uL 1.88-7.09 x10^3(ANC) (test code = 7974613232) IMM GRAN x10^3 0.03 10*3/uL 0.00-0.06 (test code = 5380439627) LYMPH x10^3 (test 2.21 10*3/uL 1.32-3.29 code = 731-0) MONO x10^3 (test 0.48 10*3/uL 0.33-0.92 code = 742-7) EOS x10^3 (test 0.29 10*3/uL 0.03-0.39 code = 711-2) BASO x10^3 (test 0.07 10*3/uL 0.01-0.07 code = 704-7) [facility] WITH [id number] 20:50:11 Test Item Value Reference Range Interpretation Comments WBC (test code = See_Comment [Automated message] 6690-2) The system [employer] generated this result transmitted ref erence range: 4.30 - 1 1.10 10*3/?L. The re ference range was not u sed to interpret this result as normal/abnor mal. RBC (test code = See_Comment [Automated message] 789-8) The system [employer] generated this result transmitted ref erence range: [...] RDW-SD (test code 40.4 fL 39.0-49.9 = 68644-4) RDW-CV (test code 12.7 % 12.0-15.5 = 788-0) PLT (test code = See_Comment [Automated message] 777-3) The system whic h generated this result transmitted ref erence range: 166 - 35 8 10*3/?L. The re ference range was not u sed to interpret this result as normal/abnor mal. MPV (test code = 10.3 fL 9.5-12.9 57273-5) NRBC/100 WBC (test See_Comment [Automat ed message] code = 0587370275) The syste m which generated this result transmitted ref erence range: 0.0 - 10 .0 /100 WBCs. The refer ence range was not u sed to interpret this result as normal/abnor mal. NRBC x10^3 (test <0.01 See_Comment [Automated message] code = 1707063620) The syste m which generated this result transmitted ref erence range: 10*3/?L. The reference range was not used to interpr et this result as normal/abnormal . GRAN MAT (NEUT) % 68.0 % (test code = 770-8) IMM GRAN % (test 0.30 % code = 7365615413) LYMPH % (test code 23.0 % = 736-9) MONO % (test code 5.0 % = 5905-5) EOS % (test code = 3.0 % 713-8) BASO % (test code 0.7 % = 706-2) GRAN MAT 6.52 10*3/uL 1.88-7.09 x10^3(ANC) (test code = 0272178166) IMM GRAN x10^3 0.03 10*3/uL 0.00-0.06 (test code = 4505275668) LYMPH x10^3 (test 2.21 10*3/uL 1.32-3.29 code = 731-0) MONO x10^3 (test 0.48 10*3/uL 0.33-0.92 code = 742-7) EOS x10^3 (test 0.29 10*3/uL 0.03-0.39 code = 711-2) BASO x10^3 (test 0.07 10*3/uL 0.01-0.07 code = 704-7) [facility] GLUCOSE (AUTOMATED)2021-02-12 19:42:22 Test Item Value Reference Range Interpretation Comments POCT GLU (test code = 0078271383) 558 mg/dL 70-110 HH Lab Interpretation (test code = Abnormal 40108-0) [facility] GLUCOSE (AUTOMATED)2021-02-12 19:42:22 Test Item Value Reference Range Interpretation Comments POCT GLU (test code = 9900908936) 558 mg/dL 70-110 HH Lab Interpretation (test code = Abnormal 85549-0) [facility] GLUCOSE (AUTOMATED)2021-01-17 18:00:29 Test Item Value Reference Range Interpretation Comments POCT GLU (test code = 1056909411) 327 mg/dL 70-110 H Lab Interpretation (test code = Abnormal 14303-8) [facility] GLUCOSE (AUTOMATED)2021-01-17 13:28:29 Test Item Value Reference Range Interpretation Comments POCT GLU (test code = 5910066248) 374 mg/dL 70-110 H Lab Interpretation (test code = Abnormal 94219-0) [facility] METABOLIC PANEL (NA, K, CL, CO2, GLUCOSE, BUN, CREATININE, CA)2021-01-17 09:28:24 Test Item Value Reference Range Interpretation Comments NA (test code = 132 mmol/L 135-145 L 8090909998) K (test code = 4.5 mmol/L 3.5-5.0 4423433132) CL (test code = 106 mmol/L 98-108 9536327399) CO2 TOTAL (test code = 23 mmol/L 23-31 6778005955) AGAP (test code = 2-16 7459869899) BUN (test code = 19 mg/dL 7-23 0233043833) GLUCOSE (test code = 383 mg/dL 70-110 H 0824641146) CREATININE (test code = 0.71 mg/dL 0.50-1.04 2660364900) CALCIUM (test code = 7.9 mg/dL 8.6-10.6 L 7677914380) eGFR (test code = mL/min/1.73m2 2076234225) NISHA (test code = NISHA) Association of [...] tests). Lab Interpretation Abnormal (test code = 36289-4) [facility] WITH [id number] 09:16:04 Test Item Value Reference Range Interpretation Comments WBC (test code = See_Comment [Automated message] 6690-2) The system [employer] generated this result transmitted ref erence range: 4.30 - 1 1.10 10*3/?L. The re ference range was not u sed to interpret this result as normal/abnor mal. RBC (test code = See_Comment [Automated message] 789-8) The system [employer] generated this result transmitted ref erence range: [...] RDW-SD (test code 39.3 fL 39.0-49.9 = 56490-7) RDW-CV (test code 12.4 % 12.0-15.5 = 788-0) PLT (test code = See_Comment [Automated message] 777-3) The system [employer] generated this result transmitted ref erence range: 166 - 35 8 10*3/?L. The re ference range was not u sed to interpret this result as normal/abnor mal. MPV (test code = 11.0 fL 9.5-12.9 72324-2) NRBC/100 WBC (test See_Comment [Automat ed message] code = 6103220552) The syste HERMEL DELOR which generated this result transmitted ref erence range: 0.0 - 10 .0 /100 WBCs. The refer ence range was not u sed to interpret this result as normal/abnor mal. NRBC x10^3 (test <0.01 See_Comment [Automated message] code = 9038189345) The syste m which generated this result transmitted ref erence range: 10*3/?L. The reference range was not used to interpr et this result as normal/abnormal . GRAN MAT (NEUT) % 52.9 % (test code = 770-8) IMM GRAN % (test 0.40 % code = 0080120260) LYMPH % (test code 35.0 % = 736-9) MONO % (test code 6.7 % = 5905-5) EOS % (test code = 4.0 % 713-8) BASO % (test code 1.0 % = 706-2) GRAN MAT 3.88 10*3/uL 1.88-7.09 x10^3(ANC) (test code = 7183081808) IMM GRAN x10^3 0.03 10*3/uL 0.00-0.06 (test code = 9747303789) LYMPH x10^3 (test 2.56 10*3/uL 1.32-3.29 code = 731-0) MONO x10^3 (test 0.49 10*3/uL 0.33-0.92 code = 742-7) EOS x10^3 (test 0.29 10*3/uL 0.03-0.39 code = 711-2) BASO x10^3 (test 0.07 10*3/uL 0.01-0.07 code = 704-7) [facility] GLUCOSE (AUTOMATED)2021-01-16 22:25:02 Test Item Value Reference Range Interpretation Comments POCT GLU (test code = 1744425371) 301 mg/dL 70-110 H Lab Interpretation (test code = Abnormal 36386-8) [facility] GLUCOSE (AUTOMATED)2021-01-16 21:22:23 Test Item Value Reference Range Interpretation Comments POCT GLU (test code = 6685902189) 228 mg/dL 70-110 H Lab Interpretation (test code = Abnormal 22156-9) [facility], [id number] 19:28:10 Test Item Value Reference Range Interpretation Comments dLDL Chol (test code = 87843-8) 51 mg/dL <130 Lab Interpretation (test code = Normal 78725-2) [facility] GLUCOSE (AUTOMATED)2021-01-16 13:20:02 Test Item Value Reference Range Interpretation Comments POCT GLU (test code = 6503800836) 282 mg/dL 70-110 H Lab Interpretation (test code = Abnormal 57394-0) [facility] (Total Cholesterol, Triglycerides, HDL) - [id number] 10:51:04 Test Item Value Reference Range Interpretation Comments CHOL (test code = 123 mg/dL 120-200 5304280873) HDL (test code = 24 mg/dL >50 L 7979202000) HDLC RATIO (test code = See_Comment H [Au tomated message] 7256663401) The system [employer] generated this result transmitted ref erence range: <=4.5. T he reference range was not used to int erpret this result as normal/abnormal . TRIG (test code = 437 mg/dL 30-170 H 5400383955) LDL CHOL (test code = Unable to calculate 78802-0) LDL due to elev ated triglyceride le sweetie greater than 40 0 mg/dL. VLDL (test code = 87 mg/dL 5-60 H 4332504508) Lab Interpretation Abnormal (test code = 23220-6) [facility] Metabolic Panel (NA, K, CL, CO2, GLUCOSE, BUN, CREATININE, CA)2021-01-16 10:50:48 Test Item Value Reference Range Interpretation Comments NA (test code = 134 mmol/L 135-145 L 2871565158) K (test code = 2.7 mmol/L 3.5-5.0 LL 5757000855) CL (test code = 101 mmol/L 98-108 4981789744) CO2 TOTAL (test code = 24 mmol/L 23-31 5358811868) AGAP (test code = 2-16 4863749287) BUN (test code = 15 mg/dL 7-23 1591239239) GLUCOSE (test code = 160 mg/dL 70-110 H 9253872319) CREATININE (test code = 0.69 mg/dL 0.50-1.04 8102243009) CALCIUM (test code = 8.5 mg/dL 8.6-10.6 L 7358697019) eGFR (test code = mL/min/1.73m2 4792596237) NISHA (test code = NISHA) Association of [...] tests). Lab Interpretation Abnormal (test code = 16318-9) [facility] Worth[facility] [id number] 10:35:20 Test Item Value Reference Range Interpretation Comments MAGNESIUM (test code = 2363302915) 1.5 mg/dL 1.7-2.4 L Lab Interpretation (test code = Abnormal 16559-2) [facility] with [id number] 10:03:39 Test Item Value Reference Range Interpretation Comments WBC (test code = See_Comment [Automated 6593-2) message] The sy stem which generated this result transmitted reference range : 4.30 - 11.10 10*3/?L. The reference range was not used to interpret this result as normal/abnormal . RBC (test code = See_Comment [Automated 557-2) message] The sy stem which generated this [...] (test code = 37.2 fL 39.0-49.9 L 23851-8) RDW-CV (test code = 12.1 % 12.0-15.5 788-0) PLT (test code = See_Comment [Automated 777-3) message] The sy stem which generated this result transmitted reference range : 166 - 358 10*3/ ?L. The reference r chelsie was not used to interpret this result as normal/abnormal . MPV (test code = 10.9 fL 9.5-12.9 77386-1) NRBC/100 WBC (test See_Comment [Automat ed code = [id number]) message] The system which generated this result transmitted reference range : 0.0 - 10.0 /100 WBCs. The refer ence range was not u sed to interpret th is result as normal/abnormal . NRBC x10^3 (test code <0.01 See_Comment [Auto mated = [id number]) message] The s ystem which generated this result transmitted reference range : 10*3/?L. The reference range was not used to interpret this result as normal/abnormal . GRAN MAT (NEUT) % 37.0 % (test code = 770-8) IMM GRAN % (test code 0.30 % = [id number]) LYMPH % (test code = 47.8 % 736-9) MONO % (test code = 8.6 % 5905-5) EOS % (test code = 5.0 % 713-8) BASO % (test code = 1.3 % 706-2) GRAN MAT x10^3(ANC) 2.37 10*3/uL 1.88-7.09 (test code = 0479311485) IMM GRAN x10^3 (test <0.03 0.00-0.06 code = 6993378548) LYMPH x10^3 (test code 3.06 10*3/uL 1.32-3.29 = 731-0) MONO x10^3 (test code 0.55 10*3/uL 0.33-0.92 = 742-7) EOS x10^3 (test code = 0.32 10*3/uL 0.03-0.39 711-2) BASO x10^3 (test code 0.08 10*3/uL 0.01-0.07 H = 704-7) Lab Interpretation Abnormal (test code = 85727-2) [facility] GLUCOSE (AUTOMATED)2021-01-16 08:30:27 Test Item Value Reference Range Interpretation Comments POCT GLU (test code = 3393131539) 171 mg/dL 70-110 H Lab Interpretation (test code = Abnormal 85676-9) [facility] GLUCOSE (AUTOMATED)2021-01-16 03:57:09 Test Item Value Reference Range Interpretation Comments POCT GLU (test code = 6751975676) 407 mg/dL 70-110 H Lab Interpretation (test code = Abnormal 80830-2) [facility] [id number] 02:31:30COVID DMT InterpretationInterpretation/Recommendations:Molecular NAAT Tests for Active [...] 1-2 weeks prior to antibody testing, any skgxvyrkWDAX-PbE-1 IgG antibody result is likely due to [...] COVID-19 testing the patient has had at [facility], including molecular NAAT testing (more commonly known as PCR testing and Rapid ID Now testing) and antibody testing. It does not take into account any testing that a patient has had outside of the [facility] medical record. [facility] LABORATORY SERVICESCOVID ItkmwidIHDI-PcK-9 Rapid ID NOW (no units) ? ? Date ? Value ? 01/15/2021 ? Not Detected ? ? ? 11/30/2020 ? Not Detected ? ? ? 09/05/2020 ? Not Detected ? [facility] SERVICESUnChildren[facility] PlanoUrinalysis2021-08-21 02:28:46 Test Item Value Reference Range Interpretation Comments APPEARANCE (test code = Hazy Clear A 3212197704) COLOR (test code = Yellow Yellow 1102250776) PH (test code = 4.8-8.0 4201523077) SP GRAVITY (test code = 1.003-1.030 1064505589) GLU U QUAL (test code = 500 mg/dL Normal A 4484810478) BLOOD (test code = 1+ Negative A 8539862529) KETONES (test code = Negative Negative 8677273221) PROTEIN (test code = Negative Negative 2887-8) UROBILIN (test code = Normal Normal 7220514167) BILIRUBIN (test code = Negative Negative 6754248607) NITRITE (test code = Negative Negative 7557148745) LEUK JOSEFA (test code = 500/uL Negative A 6818023761) RBC/HPF (test code = See_Comment H [Autom ated message] 3003807168) The system [employer] generated this result transmit anthony reference range : 0 - 3 HPF. The refe rence range was not u sed to interpret th is result as normal/abnormal . WBC/HPF (test code = See_Comment H [Autom ated message] 9494327944) The system [employer] generated this result transmit anthony reference range : 0 - 5 HPF. The refe rence range was not u sed to interpret th is result as normal/abnormal . BACTERIA (test code = Few Negative A 3296917364) MUCOUS (test code = Slight Negative LPF A 1897849239) SQ EPITH (test code = HPF 2984436037) Lab Interpretation (test Abnormal code = 74216-7) [facility]21-[facility]-16 01:20:09 Test Item Value Reference Range Interpretation Comments POCT GLU (test code = 9149719289) 525 mg/dL 70-110 HH Lab Interpretation (test code = Abnormal 77936-6) [facility] Worth[facility]yroid Stimulating Hormone (TSH)2021-01-16 00:51:02 Test Item Value Reference Range Interpretation Comments TSH (test code = See_Comment [Automated message] 1646682316) The system [employer] generated this result transmitted ref erence range: 0.45 - 4 .70 mIU/L. The refe rence range was not u sed to interpret this result as normal/abnor mal. Lab Interpretation (test Normal code = 56982-2) [facility] WorthTroponin [id number] 00:32:40 Test Item Value Reference Interpretation Comments Range TROPONIN I (test 0.006 ng/mL See_Comment [Automated code = 9942930794) message] The system which generated this result [...] biotin. Lab Interpretation Normal (test code = 76110-6) [facility] WorthHEPAT[facility] FUNCTION PANEL (44346) (ALB,T.PRO,BILI T,BU/BC,ALT,AST,ALK PHOS)2021-01-16 00:20:20 Test Item Value Reference Range Interpretation Comments TOTAL BILI (test code = 8163123884) 0.8 mg/dL 0.1-1.1 BILI UNCON (test code = 1065720332) 0.5 mg/dL 0.1-1.1 BILI CONJ (test code = 2729120235) 0.0 mg/dL 0.0-0.3 T PROTEIN (test code = 6935899968) 7.6 g/dL 6.3-8.2 ALBUMIN (test code = 7906961833) 4.0 g/dL 3.5-5.0 ALK PHOS (test code = 5753244956) 159 U/L 34-122 H ALTv (test code = 1742-6) 18 U/L 5-35 AST(SGOT) (test code = 4140822939) 27 U/L 13-40 Lab Interpretation (test code = Abnormal 01087-0) [facility] WorthPhosphorus [id number] 00:19:59 Test Item Value Reference Range Interpretation Comments PHOSPHORUS (test code = 4508427934) 3.4 mg/dL 2.5-5.0 Lab Interpretation (test code = Normal 59585-9) [facility] Worth[facility]cosylated Hemoglobin (A1C)2021-01-16 00:15:56 Test Item Value Reference Range Interpretation Comments HGB A1C (test code = >14.0 4.0-5.7 H 4548-4) NISHA (test code = NISHA) Reference RangesNormal: <5.7%Prediabetes: 5.7 - 6.4%Diabetes: > 6.5% Lab Interpretation (test Abnormal code = 10088-5) [facility] GLUCOSE (AUTOMATED)2021-01-15 22:36:13 Test Item Value Reference Range Interpretation Comments POCT GLU (test code = 7775929466) 565 mg/dL 70-110 HH Lab Interpretation (test code = Abnormal 94945-5) [facility]OVID[facility] (ID NOW RAPID TESTING)2021-01-15 21:10:19 Test Item Value Reference Range Interpretation Comments SARS-CoV-2 Rapid ID NOW Not Detected Not Detected (test code = 25647-5) NISHA (test code = NISHA) ID NOW COVID-19 Assay is an isothermal nucleic acid amplification test intended for the qualitative detection of nucleic acid from SARS-CoV-2 viral RNA in nasopharyngeal (HAT CONDITIONER) specimens. It is used under Emergency Use [...] indicated. Lab Interpretation Normal (test code = 89826-2) [facility] HEMOGLOBIN A1C [id number] 16:42:00 Test Item Value Reference Range Interpretation Comments POCT HBA1C (test code = 4548-4) 14 % 4-6 A Lab Interpretation (test code = Abnormal 49155-4) [facility] HEMOGLOBIN A1C [id number] 16:42:00 Test Item Value Reference Range Interpretation Comments POCT HBA1C (test code = 4548-4) 14 % 4-6 A Lab Interpretation (test code = Abnormal 33489-1) [facility] GLUCOSE (AUTOMATED)2020-12-01 17:40:09 Test Item Value Reference Range Interpretation Comments POCT GLU (test code = 350 mg/dL 70-110 H Notifi ed Provider 2636442606) Lab Interpretation (test Abnormal code = 92041-0) [facility] Worth[facility]OTN GLU[facility]SE (AUTOMATED)2020-12-01 13:22:36 Test Item Value Reference Range Interpretation Comments POCT GLU (test code = 3813582384) 215 mg/dL 70-110 H Lab Interpretation (test code = Abnormal 33408-4) [facility] Metabolic Panel (NA, K, CL, CO2, GLUCOSE, BUN, CREATININE, CA)2020-12-01 11:30:25 Test Item Value Reference Range Interpretation Comments NA (test code = 135 mmol/L 135-145 1054575698) K (test code = 4.0 mmol/L 3.5-5.0 1463669621) CL (test code = 104 mmol/L 98-108 4202739770) CO2 TOTAL (test code = 21 mmol/L 23-31 L 5997834973) AGAP (test code = 2-16 3932406593) BUN (test code = 13 mg/dL 7-23 5342674805) GLUCOSE (test code = 388 mg/dL 70-110 H 9034099603) CREATININE (test code = 0.69 mg/dL 0.50-1.04 3722849972) CALCIUM (test code = 8.0 mg/dL 8.6-10.6 L 2387412985) eGFR (test code = mL/min/1.73m2 3774108048) NISHA (test code = NISHA) Association of [...] tests). Lab Interpretation Abnormal (test code = 87265-8) [facility] WorthMagnesium [id number] 11:30:25 Test Item Value Reference Range Interpretation Comments MAGNESIUM (test code = 2274008153) 1.6 mg/dL 1.7-2.4 L Lab Interpretation (test code = Abnormal 00888-4) [facility] with [id number] 10:38:41 Test Item Value Reference Range Interpretation Comments WBC (test code = See_Comment [Automated 1490-2) message] The sy stem which generated this result transmitted reference range : 4.30 - 11.10 10*3/?L. The reference range was not used to interpret this result as normal/abnormal . RBC (test code = See_Comment [Automated 769-8) message] The sy stem which generated this [...] (test code = 38.6 fL 39.0-49.9 L 93010-0) RDW-CV (test code = 12.1 % 12.0-15.5 788-0) PLT (test code = See_Comment [Automated 127-3) message] The sy stem which generated this result transmitted reference range : 166 - 358 10*3/ ?L. The reference r chelsie was not used to interpret this result as normal/abnormal . MPV (test code = 10.6 fL 9.5-12.9 91179-3) NRBC/100 WBC (test See_Comment [Automat ed code = 8493471130) message] The system which generated this result transmitted reference range : 0.0 - 10.0 /100 WBCs. The refer ence range was not u sed to interpret th is result as normal/abnormal . NRBC x10^3 (test code <0.01 See_Comment [Auto mated = 2983032694) message] The s ystem which generated this result transmitted reference range : 10*3/?L. The reference range was not used to interpret this result as normal/abnormal . GRAN MAT (NEUT) % 73.2 % (test code = 770-8) IMM GRAN % (test code 0.40 % = 1098517736) LYMPH % (test code = 18.4 % 736-9) MONO % (test code = 5.6 % 5905-5) EOS % (test code = 2.0 % 713-8) BASO % (test code = 0.4 % 706-2) GRAN MAT x10^3(ANC) 7.52 10*3/uL 1.88-7.09 H (test code = 1825165581) IMM GRAN x10^3 (test 0.04 10*3/uL 0.00-0.06 code = 2296459623) LYMPH x10^3 (test code 1.89 10*3/uL 1.32-3.29 = 731-0) MONO x10^3 (test code 0.58 10*3/uL 0.33-0.92 = 742-7) EOS x10^3 (test code = 0.21 10*3/uL 0.03-0.39 711-2) BASO x10^3 (test code 0.04 10*3/uL 0.01-0.07 = 704-7) Lab Interpretation Abnormal (test code = 41793-2) [facility] GLUCOSE (AUTOMATED)2020-12-01 02:30:55 Test Item Value Reference Range Interpretation Comments POCT GLU (test code = 8302122624) 347 mg/dL 70-110 H Lab Interpretation (test code = Abnormal 70862-6) [facility] WorthACTIVATED PARTIAL THRMPLAS [id number] 01:05:55 Test Item Value Reference Range Interpretation Comments APTT Patient (test code See_Comment H [Au tomated message] = 3173-2) The system [employer] generated this result transmitted ref erence range: 26 - 36 Seconds. The reference range was not used to int erpret this result as normal/abnormal . Lab Interpretation (test Abnormal code = 87930-8) [facility] COVID [id number] 22:44:24COVID DMT InterpretationInterpretation/Recommendations:Molecular NAAT Tests for Active [...] COVID-19 testing the patient has had at [facility], including molecular NAAT testing (more commonly known as PCR testing and Rapid ID Now testing) and antibody testing. It does not take into account any testing that a patient has had outside of the [facility] medical record. [facility] LABORATORY SERVICESCOVID ResultsSARS- CoV-2 Rapid ID NOW (no units) ? ? Date ? Value ? 11/30/2020 ? Not Detected ? ? ? 09/05/2020 ? Not Detected ? [facility] SERVICESUnChildren[facility] POCT ACT LOW [id number] 22:26:21 Test Item Value Reference Range Interpretation Comments ACTLR (test code = See_Comment H [Automat ed message] 8561515274) The system [employer] generated this result transmitted ref erence range: 89 - 169 Seconds. The reference range was not used to int erpret this result as normal/abnormal . Lab Interpretation (test Abnormal code = 14339-4) [facility] WorthPO[facility] ACT LOW [id number] 22:03:24 Test Item Value Reference Range Interpretation Comments ACTLR (test code = See_Comment H [Automat ed message] 4797560165) The system [employer] generated this result transmitted ref erence range: 89 - 169 Seconds. The reference range was not used to int erpret this result as normal/abnormal . Lab Interpretation (test Abnormal code = 68451-5) [facility] Worth[facility] METABOLIC PANEL (NA, K, CL, CO2, GLUCOSE, BUN, CREATININE, CA)2020-11-30 16:00:24 Test Item Value Reference Range Interpretation Comments NA (test code = 130 mmol/L 135-145 L 2534252621) K (test code = 3.8 mmol/L 3.5-5.0 5447461702) CL (test code = 98 mmol/L 98-108 3979293720) CO2 TOTAL (test code = 25 mmol/L 23-31 6971048006) AGAP (test code = 2-16 3517759746) BUN (test code = 12 mg/dL 7- 8997495244) GLUCOSE (test code = 624 mg/dL 70-110 4618655846) CREATININE (test code = 0.63 mg/dL 0.50-1.04 0526252079) CALCIUM (test code = 8.2 mg/dL 8.6-10.6 L 8401222151) eGFR (test code = mL/min/1.73m2 4153331157) NISHA (test code = NISHA) Association of [...] tests). Lab Interpretation Abnormal (test code = 03067-0) [facility]2020-11-30 13:55:18 Test Item Value Reference Range Interpretation Comments SARS-CoV-2 Rapid ID NOW Not Detected Not Detected (test code = 30259-3) NISHA (test code = NISHA) ID NOW COVID-19 Assay is an isothermal nucleic acid amplification test intended for the qualitative detection of nucleic acid from SARS-CoV-2 viral RNA in nasopharyngeal (HAT CONDITIONER) specimens. It is used under Emergency Use [...] indicated. Lab Interpretation Normal (test code = 43023-2) [facility] GLUCOSE(AGE >30DAYS)2020-10-07 19:39:00 Test Item Value Reference Range Interpretation Comments POCT Glu (age>30days) (test code = 189 mg/dL 70-110 A 3342) Lab Interpretation (test code = Abnormal 87817-5) [facility] GLUCOSE(AGE >30DAYS)2020-10-07 19:39:00 Test Item Value Reference Range Interpretation Comments POCT Glu (age>30days) (test code = 189 mg/dL 70-110 A 3342) Lab Interpretation (test code = Abnormal 73697-6) [facility] GLUCOSE (AUTOMATED)2020-09-07 22:31:04 Test Item Value Reference Range Interpretation Comments POCT GLU (test code = 2087649360) 72 mg/dL 70-110 Lab Interpretation (test code = Normal 26459-6) [facility] GLUCOSE (AUTOMATED)2020-09-07 21:54:57 Test Item Value Reference Range Interpretation Comments POCT GLU (test code = 8435893337) 88 mg/dL 70-110 Lab Interpretation (test code = Normal 11064-5) [facility] Worth[facility]ITAMIN D, [id number] 21:07:23 Test Item Value Reference Range Interpretation Comments VIT D 25OH (test code = <13 25-80 L 94404-9) NISHA (test code = NISHA) Deficiency: <20 ng/mLInsufficiency: 20-24 ng/mLOptimal: 25-80 ng/mL Lab Interpretation (test Abnormal code = 93230-6) [facility] GLUCOSE (AUTOMATED)2020-09-07 20:17:01 Test Item Value Reference Range Interpretation Comments POCT GLU (test code = 4636606757) 47 mg/dL 70-110 LL Lab Interpretation (test code = Abnormal 56328-9) [facility] GLUCOSE (AUTOMATED)2020-09-07 17:19:43 Test Item Value Reference Range Interpretation Comments POCT GLU (test code = 3098040877) 46 mg/dL 70-110 LL Lab Interpretation (test code = Abnormal 50481-0) [facility] GLUCOSE (AUTOMATED)2020-09-07 17:19:42 Test Item Value Reference Range Interpretation Comments POCT GLU (test code = 5030892826) 183 mg/dL 70-110 H Lab Interpretation (test code = Abnormal 19764-6) [facility] WITH [id number] 11:16:01 Test Item Value Reference Range Interpretation [...] RDW-SD (test code = 42.8 fL 39.0-49.9 38115-1) RDW-CV (test code = 13.1 % 12.0-15.5 788-0) PLT (test code = See_Comment [Automated 777-3) message] The sy stem which generated this result transmitted reference range : 166 - 358 10*3/ ?L. The reference r chelsie was not used to interpret this result as normal/abnormal . MPV (test code = 11.4 fL 9.5-12.9 35186-6) IPF % (test code = 3.7 % 1.3-7.7 Platelet count 0469393533) measured by fluorescence method. NRBC/100 WBC (test See_Comment [Automat ed code = 6323288331) message] The system which generated this result transmitted reference range : 0.0 - 10.0 /100 WBCs. The refer ence range was not u sed to interpret th is result as normal/abnormal . NRBC x10^3 (test code <0.01 See_Comment [Auto mated = 6239510098) message] The s ystem which generated this result transmitted reference range : 10*3/?L. The reference range was not used to interpret this result as normal/abnormal . GRAN MAT (NEUT) % 82.6 % (test code = 770-8) IMM GRAN % (test code 0.50 % = 9933753997) LYMPH % (test code = 8.8 % 736-9) MONO % (test code = 6.3 % 5905-5) EOS % (test code = 1.6 % 713-8) BASO % (test code = 0.2 % 706-2) GRAN MAT x10^3(ANC) 11.20 10*3/uL 1.88-7.09 H (test code = 7056652690) IMM GRAN x10^3 (test 0.07 10*3/uL 0.00-0.06 H code = 2909874868) LYMPH x10^3 (test 1.19 10*3/uL 1.32-3.29 L code = 731-0) MONO x10^3 (test code 0.85 10*3/uL 0.33-0.92 = 742-7) EOS x10^3 (test code 0.22 10*3/uL 0.03-0.39 = 711-2) BASO x10^3 (test code 0.03 10*3/uL 0.01-0.07 = 704-7) Lab Interpretation Abnormal (test code = 27057-6) [facility]2020-09-07 11:07:40 Test Item Value Reference Range Interpretation Comments POCT GLU (test code = 4691569389) 215 mg/dL 70-110 H Lab Interpretation (test code = Abnormal 38163-8) [facility]. METABOLIC PANEL (14582)2020-09-07 10:56:53 Test Item Value Reference Range Interpretation Comments NA (test code = 137 mmol/L 135-145 6059332992) K (test code = 4.6 mmol/L 3.5-5.0 4077990470) CL (test code = 109 mmol/L 98-108 H 8448612507) CO2 TOTAL (test code = 22 mmol/L 23-31 L 8415524951) AGAP (test code = 2-16 1095001364) BUN (test code = 8 mg/dL 7-23 0529094958) GLUCOSE (test code = 177 mg/dL 70-110 H 5521234394) CREATININE (test code = 0.62 mg/dL 0.50-1.04 7196729877) TOTAL BILI (test code = 0.3 mg/dL 0.1-1.3 9983590129) CALCIUM (test code = 7.9 mg/dL 8.6-10.6 L 9197128584) T PROTEIN (test code = 5.1 g/dL 6.3-8.2 L 7174859208) ALBUMIN (test code = 2.7 g/dL 3.5-5.0 L 8657687146) ALK PHOS (test code = 73 U/L 34-122 6619450321) ALTv (test code = 14 U/L 5-35 1742-6) AST(SGOT) (test code = 23 U/L 13-40 5736972358) eGFR (test code = mL/min/1.73m2 5176738169) NISHA (test code = NISHA) Association of [...] tests). Lab Interpretation Abnormal (test code = 89830-9) [facility] WorthCORTISOL STIMULATION 30 [id number] 06:01:46 Test Item Value Reference Range Interpretation Comments ISIDORO 30 (test code 17.8 ug/dL = 3594717198) NISHA (test code = Normal peak serum cortisol NISHA) is greater than 20 ug/dL 30-60 minutes after 25 units of Cosyntropin IV. Biotin has been reported to cause a positive bias, interpret results relative to patient's use of biotin. [facility] BranchCORTISOL STIMULATION 0 [id number] 05:52:48 Test Item Value Reference Range Interpretation Comments ISIDORO 0 (test code = 15.7 ug/dL 4.5-23.0 8375895579) NISHA (test code = NISHA) Biotin has been reported to cause a positive bias, interpret results relative to patient's use of biotin. Lab Interpretation (test Normal code = 49515-9) [facility] BranchCORTISOL STIMULATION 60 [id number] 05:51:28 Test Item Value Reference Range Interpretation Comments ISIDORO 60 (test code 16.6 ug/dL = 1842512180) NISHA (test code = Normal peak serum cortisol NISHA) is greater than 20 ug/dL 30-60 minutes after 25 units of Cosyntropin IV. Biotin has been reported to cause a positive bias, interpret results relative to patient's use of biotin. [facility] GLUCOSE (AUTOMATED)2020-09-06 21:06:52 Test Item Value Reference Range Interpretation Comments POCT GLU (test code = 2460883165) 73 mg/dL 70-110 Lab Interpretation (test code = Normal 58059-6) [facility] GLUCOSE (AUTOMATED)2020-09-06 20:00:38 Test Item Value Reference Range Interpretation Comments POCT GLU (test code = 0184459178) 38 mg/dL 70-110 LL Lab Interpretation (test code = Abnormal 48362-4) [facility] WorthCORTISOL [id number] 18:39:49 Test Item Value Reference Range Interpretation Comments ISIDORO AM (test code = 1.6 ug/dL 4.5-23.0 L 9752837248) NISHA (test code = NISHA) Biotin has been reported to cause a positive bias, interpret results relative to patient's use of biotin. Lab Interpretation (test Abnormal code = 97304-3) [facility] GLUCOSE (AUTOMATED)2020-09-06 16:42:57 Test Item Value Reference Range Interpretation Comments POCT GLU (test code = 8919335383) 120 mg/dL 70-110 H Lab Interpretation (test code = Abnormal 43327-8) [facility] GLUCOSE (AUTOMATED)2020-09-06 12:48:51 Test Item Value Reference Range Interpretation Comments POCT GLU (test code = 6516600097) 217 mg/dL 70-110 H Lab Interpretation (test code = Abnormal 44734-5) [facility] WorthN-TERMINAL [id number] 11:44:45 Test Item Value Reference Range Interpretation Comments NT-proBNP (test code 423 pg/mL See_Comment H [Autom ated = 5095127283) message] The system which generated this result transmitted reference range : <=125. The reference range was not used to interpret this result as normal/abnormal . NISHA (test code = NISHA) Biotin has been reported to cause a negative bias, interpret results relative to patient's use of biotin. Lab Interpretation Abnormal (test code = 58660-0) [facility] WorthMAGNESIUM2021-04-11 11:36:41 Test Item Value Reference Range Interpretation Comments MAGNESIUM (test code = 8606827907) 1.7 mg/dL 1.7-2.4 Lab Interpretation (test code = Normal 69352-0) [facility] WorthCOMP. METABOLIC PANEL (15847)2020-09-06 11:36:21 Test Item Value Reference Range Interpretation Comments NA (test code = 138 mmol/L 135-145 7698295637) K (test code = 4.1 mmol/L 3.5-5.0 5865946803) CL (test code = 110 mmol/L 98-108 H 3260868691) CO2 TOTAL (test code = 25 mmol/L 23-31 6441971684) AGAP (test code = 2-16 8687015615) BUN (test code = 9 mg/dL 7-23 9896680934) GLUCOSE (test code = 196 mg/dL 70-110 H 0439036296) CREATININE (test code = 0.78 mg/dL 0.50-1.04 7734473779) TOTAL BILI (test code = 0.4 mg/dL 0.1-1.2 4942441965) CALCIUM (test code = 7.9 mg/dL 8.6-10.6 L 8854017272) T PROTEIN (test code = 5.0 g/dL 6.3-8.2 L 5056045131) ALBUMIN (test code = 2.6 g/dL 3.5-5.0 L 7622579961) ALK PHOS (test code = 65 U/L 34-122 3547261075) ALTv (test code = 13 U/L 5-35 1742-6) AST(SGOT) (test code = 24 U/L 13-40 2817823761) eGFR (test code = mL/min/1.73m2 2428640477) NISHA (test code = NISHA) Association of [...] tests). Lab Interpretation Abnormal (test code = 10071-2) [facility] WorthPHOSPHORUS2021-04-11 11:36:20 Test Item Value Reference Range Interpretation Comments PHOSPHORUS (test code = 5203364661) 4.3 mg/dL 2.5-5.0 Lab Interpretation (test code = Normal 28966-7) [facility] WITH [id number] 11:26:03 Test Item Value Reference Range Interpretation Comments WBC (test code = See_Comment [Automated 8556-2) message] The sy stem which generated this result transmitted reference range : 4.30 - 11.10 10*3/?L. The reference range was not used to interpret this result as normal/abnormal . RBC (test code = See_Comment L [Automated 371-2) message] The sy stem which generated this [...] RDW-SD (test code = 42.7 fL 39.0-49.9 05837-8) RDW-CV (test code = 13.2 % 12.0-15.5 788-0) PLT (test code = See_Comment [Automated 777-3) message] The sy stem which generated this result transmitted reference range : 166 - 358 10*3/ ?L. The reference r chelsie was not used to interpret this result as normal/abnormal . MPV (test code = 10.5 fL 9.5-12.9 43570-2) NRBC/100 WBC (test See_Comment [Automat ed code = 7101078743) message] The system which generated this result transmitted reference range : 0.0 - 10.0 /100 WBCs. The refer ence range was not u sed to interpret th is result as normal/abnormal . NRBC x10^3 (test code <0.01 See_Comment [Auto mated = 7304434431) message] The s ystem which generated this result transmitted reference range : 10*3/?L. The reference range was not used to interpret this result as normal/abnormal . GRAN MAT (NEUT) % 61.4 % (test code = 770-8) IMM GRAN % (test code 0.40 % = 0165290564) LYMPH % (test code = 26.8 % 736-9) MONO % (test code = 7.3 % 5905-5) EOS % (test code = 3.6 % 713-8) BASO % (test code = 0.5 % 706-2) GRAN MAT x10^3(ANC) 4.65 10*3/uL 1.88-7.09 (test code = 6677642221) IMM GRAN x10^3 (test 0.03 10*3/uL 0.00-0.06 code = 8807523657) LYMPH x10^3 (test code 2.03 10*3/uL 1.32-3.29 = 731-0) MONO x10^3 (test code 0.55 10*3/uL 0.33-0.92 = 742-7) EOS x10^3 (test code = 0.27 10*3/uL 0.03-0.39 711-2) BASO x10^3 (test code 0.04 10*3/uL 0.01-0.07 = 704-7) Lab Interpretation Abnormal (test code = 18091-1) [facility] 09:31:41 Test Item Value Reference Range Interpretation Comments POCT GLU (test code = 3913036966) 119 mg/dL 70-110 H Lab Interpretation (test code = Abnormal 01403-6) [facility] WorthSEDIMENTATION [id number] 02:23:15 Test Item Value Reference Range Interpretation Comments ESR (test code = See_Comment H [Automated message] 2219361896) The system [employer] generated this result transmitted ref erence range: 0 - 20 m m/HR. The reference r chelsie was not used to interpret this result as normal/abnor mal. Lab Interpretation (test Abnormal code = 62909-3) [facility] [id number] 01:26:18 Test Item Value Reference Range Interpretation Comments TROPONIN I (test 0.004 ng/mL See_Comment [Automated code = 2506830099) message] The system which generated this result [...] ? Lab Interpretation Normal (test code = 48690-4) [facility] GLUCOSE (AUTOMATED)2020-09-05 21:59:05 Test Item Value Reference Range Interpretation Comments POCT GLU (test code = 2585373653) 119 mg/dL 70-110 H Lab Interpretation (test code = Abnormal 93386-6) [facility] GLUCOSE (AUTOMATED)2020-09-05 20:48:26 Test Item Value Reference Range Interpretation Comments POCT GLU (test code = 4423447821) 237 mg/dL 70-110 H Lab Interpretation (test code = Abnormal 19442-3) [facility] GLUCOSE (AUTOMATED)2020-09-05 20:48:26 Test Item Value Reference Range Interpretation Comments POCT GLU (test code = 2098169566) 208 mg/dL 70-110 H Lab Interpretation (test code = Abnormal 10532-3) [facility] WorthLIPID PANEL (59461)(TOTAL CHOLESTEROL, TRIGLYCERIDES, HDL)2020-09-05 20:09:59 Test Item Value Reference Range Interpretation Comments CHOL (test code = 175 mg/dL 120-200 1290088403) HDL (test code = 29 mg/dL >50 L 1872864739) HDLC RATIO (test code = See_Comment H [Au tomated message] 5639859330) The system [employer] generated this result transmit anthony reference range : <=4.5. The refe rence range was not u sed to interpret th is result as normal/abnormal . TRIG (test code = 359 mg/dL 30-170 H 2421624182) LDL CHOL (test code = 74 mg/dL See_Comment [Auto mated message] 28909-0) The system [employer] generated this result transmit anthony reference range : <=160. The refe rence range was not u sed to interpret th is result as normal/abnormal . VLDL (test code = 72 mg/dL 5-60 H 3408002061) Lab Interpretation (test Abnormal code = 09053-6) [facility]ITAMIN B12, [id number] 19:54:18 Test Item Value Reference Range Interpretation Comments VIT B12 (test code = 589 pg/mL 240-930 6352635823) NISHA (test code = NISHA) Biotin has been reported to cause a positive bias, interpret results relative to patient's use of biotin. Lab Interpretation (test Normal code = 71074-0) [facility] WorthPROCALCITONIN2021-04-10 16:28:13 Test Item Value Reference Range Interpretation Comments Procalcitonin (test 0.02 ng/mL <0.07 code = 8705474283) NISHA (test code = NISHA) INTERPRETATION OF [...] lung abscess/empyema. For further information please refer to:[email or web address] Lab Interpretation Normal (test code = 94625-0) [facility] WorthGLYCOSYLATED HEMOGLOBIN (A1C)2020-09-05 14:17:09 Test Item Value Reference Range Interpretation Comments HGB A1C (test code = >14.0 4.0-6.0 H 4548-4) NISHA (test code = NISHA) %A1C (NGSP) Interpretation (ADA)4.8-5.6 ? ? Normal or (Non-Diabetic Range)5.7-6.4 ? ? Increased Risk (Pre-Diabetic)>6.5 ?Diabetes Indicated Lab Interpretation Abnormal (test code = 92980-7) [facility]TROP[facility]IN [id number] 12:34:46 Test Item Value Reference Range Interpretation Comments TROPONIN I (test 0.006 ng/mL See_Comment [Automated code = 5825423649) message] The system which generated this result [...] ? Lab Interpretation Normal (test code = 07748-2) [facility] WorthN-TERMINAL [id number] 12:31:45 Test Item Value Reference Range Interpretation Comments NT-proBNP (test code 465 pg/mL See_Comment H [Autom ated = 1311058860) message] The system which generated this result transmitted reference range : <=125. The reference range was not used to interpret this result as normal/abnormal . NISHA (test code = NISHA) Biotin has been reported to cause a negative bias, interpret results relative to patient's use of biotin. Lab Interpretation Abnormal (test code = 50892-1) [facility] WorthMAGNESIUM2021-04-10 12:23:24 Test Item Value Reference Range Interpretation Comments MAGNESIUM (test code = 7823574812) 1.2 mg/dL 1.7-2.4 L Lab Interpretation (test code = Abnormal 38084-8) [facility] WorthCOMP. METABOLIC PANEL (44522)2020-09-05 12:23:06 Test Item Value Reference Range Interpretation Comments NA (test code = 138 mmol/L 135-145 5383019801) K (test code = 3.0 mmol/L 3.5-5.0 L 7789944521) CL (test code = 102 mmol/L 98-108 0505809701) CO2 TOTAL (test code = 28 mmol/L 23-31 6573678672) AGAP (test code = 2-16 4862429128) BUN (test code = 11 mg/dL 7-23 9520469916) GLUCOSE (test code = 172 mg/dL 70-110 H 7558619311) CREATININE (test code = 0.60 mg/dL 0.50-1.04 5998295311) TOTAL BILI (test code = 0.5 mg/dL 0.1-1.3 0607934798) CALCIUM (test code = 8.0 mg/dL 8.6-10.6 L 1880573134) T PROTEIN (test code = 5.9 g/dL 6.3-8.2 L 1137008419) ALBUMIN (test code = 3.2 g/dL 3.5-5.0 L 9174899121) ALK PHOS (test code = 97 U/L 34-122 0203595575) ALTv (test code = 17 U/L 5-35 1742-6) AST(SGOT) (test code = 21 U/L 13-40 5678225122) eGFR (test code = mL/min/1.73m2 7514263200) NISHA (test code = NISHA) Association of [...] tests). Lab Interpretation Abnormal (test code = 61459-6) [facility] WorthCREATINE [id number] 12:22:45 Test Item Value Reference Range Interpretation Comments CK (test code = 7190959112) 39 U/L 33-194 Lab Interpretation (test code = Normal 51303-0) [facility] WorthPROTHROMBIN TIME / [id number] 11:59:05 Test Item Value Reference Range Interpretation Comments PROTIME PATIENT (test See_Comment [Auto mated message] code = 5964-2) The system [employer] generated this result transmitted ref erence range: 12.0 - 1 4.7 Seconds. The re ference range was not u sed to interpret this result as normal/abnor mal. INR (test code = 6301-6) Nor mal INR <1.1; Warfarin Therap eutic range 2.0 to 3. 0 or 2.5 to 3.5, dep ending upon the indica tions. Lab Interpretation (test Normal code = 88603-3) [facility] WorthCT ABDOMEN PELVIS WO [id number] 11:36:381. 3-4 mm, bilateral nonobstructing renal stones [...] are seen.2. Otherwise, no acute finding.RL: [id number] [facility] WITH [id number] 11:29:17 Test Item Value Reference Range Interpretation Comments WBC (test code = See_Comment [Automated 6690-2) message] The [employer] stem which generated this result transmitted reference [...] (test code = 38.2 fL 39.0-49.9 L 86325-8) RDW-CV (test code = 12.4 % 12.0-15.5 788-0) PLT (test code = See_Comment [Automated 777-3) message] The sy stem which generated this result transmitted reference range : 166 - 358 10*3/ ?L. The reference r chelsie was not used to interpret this result as normal/abnormal . MPV (test code = 10.9 fL 9.5-12.9 80815-9) NRBC/100 WBC (test See_Comment [Automat ed code = 1620684931) message] The system which generated this result transmitted reference range : 0.0 - 10.0 /100 WBCs. The refer ence range was not u sed to interpret th is result as normal/abnormal . NRBC x10^3 (test code <0.01 See_Comment [Auto mated = 0652743062) message] The s ystem which generated this result transmitted reference range : 10*3/?L. The reference range was not used to interpret this result as normal/abnormal . GRAN MAT (NEUT) % 61.7 % (test code = 770-8) IMM GRAN % (test code 0.40 % = 2901062741) LYMPH % (test code = 26.7 % 736-9) MONO % (test code = 7.7 % 5905-5) EOS % (test code = 3.0 % 713-8) BASO % (test code = 0.5 % 706-2) GRAN MAT x10^3(ANC) 5.11 10*3/uL 1.88-7.09 (test code = 1204929858) IMM GRAN x10^3 (test 0.03 10*3/uL 0.00-0.06 code = 9850069699) LYMPH x10^3 (test code 2.21 10*3/uL 1.32-3.29 = 731-0) MONO x10^3 (test code 0.64 10*3/uL 0.33-0.92 = 742-7) EOS x10^3 (test code = 0.25 10*3/uL 0.03-0.39 711-2) BASO x10^3 (test code 0.04 10*3/uL 0.01-0.07 = 704-7) Lab Interpretation Abnormal (test code = 28450-2) [facility] WorthTHYROID STIMULATING [id number] 10:36:10 Test Item Value Reference Range Interpretation Comments TSH (test code = See_Comment [Automated message] 0004308398) The system [employer] generated this result transmitted ref erence range: 0.45 - 4 .70 mIU/L. The refe rence range was not u sed to interpret this result as normal/abnor mal. Lab Interpretation (test Normal code = 30475-7) [facility] WorthMAGNESIUM2021-04-10 10:04:49 Test Item Value Reference Range Interpretation Comments MAGNESIUM (test code = 9712505433) 1.3 mg/dL 1.7-2.4 L Lab Interpretation (test code = Abnormal 46652-4) [facility] WorthPHOSPHORUS2021-04-10 10:04:49 Test Item Value Reference Range Interpretation Comments PHOSPHORUS (test code = 7547321027) 3.7 mg/dL 2.5-5.0 Lab Interpretation (test code = Normal 76580-4) [facility]COVID-19 (ID NOW RAPID TESTING)2020-09-05 06:06:14 Test Item Value Reference Range Interpretation Comments SARS-CoV-2 Rapid ID NOW Not Detected Not Detected (test code = 67530-6) NISHA (test code = NISHA) ID NOW COVID-19 Assay is an isothermal nucleic acid amplification test intended for the qualitative detection of nucleic acid from SARS-CoV-2 viral RNA in nasopharyngeal (HAT CONDITIONER) specimens. It is used under Emergency Use [...] indicated. Lab Interpretation Normal (test code = 35809-4) [facility])2020-09-05 04:27:52 Test Item Value Reference Range Interpretation Comments POCT GLU (test code = 0514060785) 463 mg/dL 70-110 HH Lab Interpretation (test code = Abnormal 71508-9) [facility] WorthTROPONIN [id number] 03:44:02 Test Item Value Reference Range Interpretation Comments TROPONIN I (test 0.004 ng/mL See_Comment [Automated code = 7979336116) message] The system which generated this result [...] ? Lab Interpretation Normal (test code = 60901-8) [facility] WorthN-TERMINAL [id number] 03:40:44 Test Item Value Reference Range Interpretation Comments NT-proBNP (test code 351 pg/mL See_Comment H [Autom ated = 6226035487) message] The system which generated this result transmitted reference range : <=125. The reference range was not used to interpret this result as normal/abnormal . NISHA (test code = NISHA) Biotin has been reported to cause a negative bias, interpret results relative to patient's use of biotin. Lab Interpretation Abnormal (test code = 14282-8) [facility] WorthURINALYSIS2021-04-10 03:36:15 Test Item Value Reference Range Interpretation Comments APPEARANCE (test code = Hazy Clear A 1981475904) COLOR (test code = Yellow Yellow 5317798364) PH (test code = 4.8-8.0 8762807219) SP GRAVITY (test code = 1.003-1.030 0995136274) GLU U QUAL (test code = 500 mg/dL Normal A 4184068414) BLOOD (test code = Negative Negative 9797964973) KETONES (test code = Negative Negative 9003915875) PROTEIN (test code = Negative Negative 2887-8) UROBILIN (test code = Normal Normal 1536444789) BILIRUBIN (test code = Negative Negative 5889355629) NITRITE (test code = Positive Negative A 7069583811) LEUK JOSEFA (test code = 75/uL Negative A 9568745300) RBC/HPF (test code = See_Comment [Autom ated message] 5209120257) The system [employer] generated this result transmit anthony reference range : 0 - 3 HPF. The refe rence range was not u sed to interpret th is result as normal/abnormal . WBC/HPF (test code = See_Comment H [Autom ated message] 5840039761) The system whic h generated this result transmit anthony reference range : 0 - 5 HPF. The refe rence range was not u sed to interpret th is result as normal/abnormal . BACTERIA (test code = Many Negative A 5045781771) MUCOUS (test code = Slight Negative LPF A 2403677170) SQ EPITH (test code = HPF 2412454277) YEAST BUD (test code = See_Comment H [Aut omated message] 2954304544) The system [employer] generated this result transmit anthony reference range : <=1 HPF. The refere nce range was not u sed to interpret th is result as normal/abnormal . Lab Interpretation (test Abnormal code = 44660-4) [facility] WorthLIPASE2021-04-10 03:31:20 Test Item Value Reference Range Interpretation Comments LIPASE (test code = 8522079631) 121 U/L 0-220 Lab Interpretation (test code = Normal 14963-2) [facility] WorthCOMP. METABOLIC PANEL (06549)2020-09-05 03:14:37 Test Item Value Reference Range Interpretation Comments NA (test code = 130 mmol/L 135-145 L 3644899890) K (test code = 3.3 mmol/L 3.5-5.0 L 2105911539) CL (test code = 90 mmol/L 98-108 L 5283881785) CO2 TOTAL (test code = 29 mmol/L 23-31 1993543413) AGAP (test code = 2-16 0193183270) BUN (test code = 13 mg/dL 7-23 2002622944) GLUCOSE (test code = 605 mg/dL 70-110 HH 0186096180) CREATININE (test code = 0.68 mg/dL 0.50-1.04 4582294750) TOTAL BILI (test code = 0.7 mg/dL 0.1-1.8 2063404768) CALCIUM (test code = 8.6 mg/dL 8.6-10.6 4199773098) T PROTEIN (test code = 7.3 g/dL 6.3-8.2 9201927078) ALBUMIN (test code = 4.3 g/dL 3.5-5.0 9541019233) ALK PHOS (test code = 138 U/L 34-122 H 4150771178) ALTv (test code = 23 U/L 5-35 1742-6) AST(SGOT) (test code = 24 U/L 13-40 0286881816) eGFR (test code = mL/min/1.73m2 4869878777) NISHA (test code = NISHA) Association of [...] tests). Lab Interpretation Abnormal (test code = 09658-9) [facility] WITH [id number] 03:03:56 Test Item Value Reference Range Interpretation Comments WBC (test code = See_Comment [Automated 0036-2) message] The sy stem which generated this result transmitted reference range : 4.30 - 11.10 10*3/?L. The reference range was not used to interpret this result as normal/abnormal . RBC (test code = See_Comment [Automated 632-8) message] The sy stem which generated this [...] RDW-SD (test code = 40.1 fL 39.0-49.9 31763-7) RDW-CV (test code = 12.7 % 12.0-15.5 788-0) PLT (test code = See_Comment H [Automated 777-3) message] The sy stem which generated this result transmitted reference range : 166 - 358 10*3/ ?L. The reference r chelsie was not used to interpret this result as normal/abnormal . MPV (test code = 11.0 fL 9.5-12.9 46697-5) NRBC/100 WBC (test See_Comment [Automat ed code = 6289201049) message] The system which generated this result transmitted reference range : 0.0 - 10.0 /100 WBCs. The refer ence range was not u sed to interpret th is result as normal/abnormal . NRBC x10^3 (test code <0.01 See_Comment [Auto mated = 7798118059) message] The s ystem which generated this result transmitted reference range : 10*3/?L. The reference range was not used to interpret this result as normal/abnormal . GRAN MAT (NEUT) % 66.6 % (test code = 770-8) IMM GRAN % (test code 0.40 % = 0466595825) LYMPH % (test code = 23.7 % 736-9) MONO % (test code = 6.1 % 5905-5) EOS % (test code = 2.7 % 713-8) BASO % (test code = 0.5 % 706-2) GRAN MAT x10^3(ANC) 5.00 10*3/uL 1.88-7.09 (test code = 2083256506) IMM GRAN x10^3 (test 0.03 10*3/uL 0.00-0.06 code = 9842114986) LYMPH x10^3 (test code 1.78 10*3/uL 1.32-3.29 = 731-0) MONO x10^3 (test code 0.46 10*3/uL 0.33-0.92 = 742-7) EOS x10^3 (test code = 0.20 10*3/uL 0.03-0.39 711-2) BASO x10^3 (test code 0.04 10*3/uL 0.01-0.07 = 704-7) Lab Interpretation Abnormal (test code = 23714-5) [facility] VENOUS BLOOD [id number] 02:38:19 Test Item Value Reference Range Interpretation Comments PH (test code = 7.32-7.42 8980839223) PCO2 JUTSIN (test code = See_Comment [Auto mated message] 4324373694) The system [employer] generated this result transmitted ref erence range: 41 - 51 mmHg. The reference r chelsie was not used to interpret this result as normal/abnor mal. PO2 JUSTIN (test code = See_Comment [Autom ated message] 0628849622) The system [employer] generated this result transmitted ref erence range: 25 - 40 mmHg. The reference r chelsie was not used to interpret this result as normal/abnor mal. HCO3 JUSTIN (test code = See_Comment H [Auto mated message] 7142894659) The system [employer] generated this result transmitted ref erence range: 24 - 28 mEq/L. The reference r chelsie was not used to interpret this result as normal/abnor mal. AC VBE(BEAKER) (test mEq/L code = 7748635563) Lab Interpretation (test Abnormal code = 63727-5) [facility] GLUCOSE (AUTOMATED)2020-09-05 01:59:51 Test Item Value Reference Range Interpretation Comments POCT GLU (test code = 0330774387) 557 mg/dL 70-110 HH Lab Interpretation (test code = Abnormal 87020-9) [facility] HEMOGLOBIN A1C [id number] 21:16:00 Test Item Value Reference Range Interpretation Comments POCT HBA1C (test code = 4548-4) >14 4-6 A Lab Interpretation (test code = Abnormal 88802-5) [facility] A[facility]C [id number] 21:16:00 Test Item Value Reference Range Interpretation Comments POCT HBA1C (test code = 4548-4) >14 4-6 A Lab Interpretation (test code = Abnormal 06484-2) [facility] WorthXR LUMBAR SPINE 4 [id number] 22:59:21XR LUMBAR SPINE 4 VW HISTORY: Female [...] kidney probablyrepresents a small renal calculus.[facility] WorthXR HIPS 2 VW [id number] 22:34:44 Impression: 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 RL: ?[phone] Clinical indication: Severe acute on chronic hip [...] hip joint space withoutevidence of fracture visualized.RL: [id number] [facility]anoGC & CHLAMYDIA AMPLIFIED [id number] 20:07:00 Test Item Value Reference Range Interpretation Comments C. trachomatis Nucleic Negative Negative Acid (test code = 16616-4) N. gonorrhoeae Nucleic Negative Negative Acid (test code = 29081-3) NISHA (test code = NISHA) Reliable results [...] clinician. Lab Interpretation Normal (test code = 80480-1) [facility] WorthTRICHOMONAS AMPLIFIED [id number] 20:02:00 Test Item Value Reference Range Interpretation Comments Trichomonas Nucleic Negative Negative Acid (test code = 38339-1) NISHA (test code = NISHA) Reliable results [...] clinician. Lab Interpretation Normal (test code = 38037-0) [facility] WorthGALV ONLY - VAGINAL PATHOGENS BY NUCLEIC ACID [id number] 18:40:00 Test Item Value Reference Range Interpretation Comments Trichomonas vaginalis Negative Negative (test code = 1714960900) Nasrin species (test Positive Negative A code = 8245913958) Nasrin glabrata (test Positive Negative A code = 27245-1) Bacterial Vaginosis Positive Negative A (test code = 71697-4) NISHA (test code = NISHA) Reliable results [...] clinician. Lab Interpretation Abnormal (test code = 76977-9) [facility] URINALYSIS W/O SPECIFIC [id number] 19:50:00 Test Item Value Reference Range Interpretation [...] code = 3257) neg Negative - Negative [facility] URINALYSIS W/O SPECIFIC [id number] 19:50:00 Test Item Value Reference Range Interpretation [...] code = 3257) neg Negative - Negative [facility] URINALYSIS W/O SPECIFIC [id number] 19:50:00 Test Item Value Reference Range Interpretation [...] code = 3257) neg Negative - Negative [facility] HEMOGLOBIN A1C [id number] 22:01:00 Test Item Value Reference Range Interpretation Comments POCT HBA1C (test code = 4548-4) >14.0 4-6 [facility] HEMOGLOBIN A1C [id number] 22:01:00 Test Item Value Reference Range Interpretation Comments POCT HBA1C (test code = 4548-4) >14.0 4-6 [facility] WorthBI SCREENING MAMMOGRAM [id number] 22:41:31Examination:BI SCREENING MAMMOGRAM BILATERAL History:Patient is 49 [...] study and agree with the resident's/fellow's report.[facility]PO[facility] (AUT[facility]ATED)2019-08-16 13:03:00 Test Item Value Reference Range Interpretation Comments POCT GLU (test code = 3143207816) 228 mg/dL 70-110 H Lab Interpretation (test code = Abnormal 25911-9) [facility] WorthMAGNESIUM2020-03-20 10:40:00 Test Item Value Reference Range Interpretation Comments MAGNESIUM (test code = 5722349985) 4.7 mg/dL 1.7-2.4 H Lab Interpretation (test code = Abnormal 94376-9) [facility] WorthBASIC METABOLIC PANEL (NA, K, CL, CO2, GLUCOSE, BUN, CREATININE, CA)2019-08-16 10:36:00 Test Item Value Reference Range Interpretation Comments NA (test code = 135 mmol/L 135-145 7358157754) K (test code = 3.9 mmol/L 3.5-5 3094759474) CL (test code = 107 mmol/L 98-108 8385418997) CO2 TOTAL (test code = 22 mmol/L 23-31 L 6337456722) AGAP (test code = 2-16 2266981518) BUN (test code = 19 mg/dL 7-23 1097234863) GLUCOSE (test code = 236 mg/dL 70-110 H 7023701754) CREATININE (test code = 0.91 mg/dL 0.5-1.04 5171575442) CALCIUM (test code = 6.6 mg/dL 8.6-10.6 L 7671231146) eGFR Calculation mL/min/1.73m2 (Non-) (test code = 4044144916) eGFR Calculation mL/min/1.73m2 () (test code = 0867343990) NISHA (test code = NISHA) Association of [...] tests). Lab Interpretation Abnormal (test code = 08453-2) [facility] WITH [id number] 10:13:00 Test Item Value Reference Range Interpretation Comments WBC (test code = See_Comment H [Automated 8090-2) message] The sy stem which generated this [...] RDW-SD (test code = 41.6 fL 39-49.9 00837-1) RDW-CV (test code = 12.8 % 12-15.5 788-0) PLT (test code = See_Comment [Automated 777-3) message] The sy stem which generated this result transmitted reference range : 166 - 358 10*3/ ?L. The reference r chelsie was not used to interpret this result as normal/abnormal . MPV (test code = 10.6 fL 9.5-12.9 40217-2) NRBC/100 WBC (test See_Comment [Automat ed code = 3377573542) message] The system which generated this result transmitted reference range : 0.0 - 10.0 /100 WBCs. The refer ence range was not u sed to interpret th is result as normal/abnormal . NRBC x10^3 (test code <0.01 See_Comment [Auto mated = 3660936151) message] The s ystem which generated this result transmitted reference range : 10*3/?L. The reference range was not used to interpret this result as normal/abnormal . GRAN MAT (NEUT) % 77.9 % (test code = 770-8) IMM GRAN % (test code 0.80 % = 4258422746) LYMPH % (test code = 13.8 % 736-9) MONO % (test code = 6.8 % 5905-5) EOS % (test code = 0.3 % 713-8) BASO % (test code = 0.4 % 706-2) GRAN MAT x10^3(ANC) 8.66 10*3/uL 1.88-7.09 H (test code = 2391401051) IMM GRAN x10^3 (test 0.09 10*3/uL 0-0.06 H code = 3977195795) LYMPH x10^3 (test code 1.54 10*3/uL 1.32-3.29 = 731-0) MONO x10^3 (test code 0.76 10*3/uL 0.33-0.92 = 742-7) EOS x10^3 (test code = 0.03 10*3/uL 0.03-0.39 711-2) BASO x10^3 (test code 0.04 10*3/uL 0.01-0.07 = 704-7) Lab Interpretation Abnormal (test code = 63443-9) [facility] GLUCOSE (AUTOMATED)2019-08-16 09:54:00 Test Item Value Reference Range Interpretation Comments POCT GLU (test code = 3294827712) 218 mg/dL 70-110 H Lab Interpretation (test code = Abnormal 32012-1) [facility] GLUCOSE (AUTOMATED)2019-08-16 07:12:00 Test Item Value Reference Range Interpretation Comments POCT GLU (test code = 2105509930) 355 mg/dL 70-110 H Lab Interpretation (test code = Abnormal 21037-4) [facility] GLUCOSE (AUTOMATED)2019-08-16 05:06:00 Test Item Value Reference Range Interpretation Comments POCT GLU (test code = 2862452656) 457 mg/dL 70-110 HH Lab Interpretation (test code = Abnormal 70091-3) [facility] HEAD WO [id number] 00:55:12 No acute intracranial hemorrhage or mass [...] clear. IMPRESSIONNo acute intracranial hemorrhage or mass effect.[facility] GLUCOSE (AUTOMATED)2019-08-15 22:15:00 Test Item Value Reference Range Interpretation Comments POCT GLU (test code = 8213448722) 304 mg/dL 70-110 H Lab Interpretation (test code = Abnormal 69858-8) [facility] Test Item Value Reference Range Interpretation Comments APTT Patient (test code See_Comment L [Au tomated message] = 3173-2) The system Kai[employer] generated this result transmitted ref erence range: 26 - 36 Seconds. The reference range was not used to int erpret this result as normal/abnormal . Lab Interpretation (test Abnormal code = 04087-8) [facility] GLUCOSE (AUTOMATED)2019-08-15 20:41:00 Test Item Value Reference Range Interpretation Comments POCT GLU (test code = 9760587223) 274 mg/dL 70-110 H Lab Interpretation (test code = Abnormal 61199-6) [facility] GLUCOSE (AUTOMATED)2019-08-15 17:10:00 Test Item Value Reference Range Interpretation Comments POCT GLU (test code = 9811370665) 308 mg/dL 70-110 H Lab Interpretation (test code = Abnormal 67049-1) [facility] ACT LOW [id number] 15:44:00 Test Item Value Reference Range Interpretation Comments ACTLR (test code = See_Comment H [Automat ed message] 0122406153) The system [employer] generated this result transmitted ref erence range: 89 - 169 Seconds. The reference range was not used to int erpret this result as normal/abnormal . Lab Interpretation (test Abnormal code = 11523-8) [facility] ACT LOW [id number] 15:22:00 Test Item Value Reference Range Interpretation Comments ACTLR (test code = See_Comment H [Automat ed message] 6641194557) The system [employer] generated this result transmitted ref erence range: 89 - 169 Seconds. The reference range was not used to int erpret this result as normal/abnormal . Lab Interpretation (test Abnormal code = 68876-1) [facility] ACT LOW [id number] 14:44:00 Test Item Value Reference Range Interpretation Comments ACTLR (test code = See_Comment H [Automat ed message] 9245343625) The system [employer] generated this result transmitted ref erence range: 89 - 169 Seconds. The reference range was not used to int erpret this result as normal/abnormal . Lab Interpretation (test Abnormal code = 18382-2) [facility] ACT LOW [id number] 14:26:00 Test Item Value Reference Range Interpretation Comments ACTLR (test code = See_Comment H [Automat ed message] 9811026991) The system [employer] generated this result transmitted ref erence range: 89 - 169 Seconds. The reference range was not used to int erpret this result as normal/abnormal . Lab Interpretation (test Abnormal code = 48230-8) [facility] METABOLIC PANEL (NA, K, CL, CO2, GLUCOSE, BUN, CREATININE, CA)2019-08-15 11:06:00 Test Item Value Reference Range Interpretation Comments NA (test code = 134 mmol/L 135-145 L 8045655544) K (test code = 4.3 mmol/L 3.5-5 8490425121) CL (test code = 105 mmol/L 98-108 8569376669) CO2 TOTAL (test code = 22 mmol/L 23-31 L 5003731059) AGAP (test code = 2-16 8293007781) BUN (test code = 21 mg/dL 7-23 8900070906) GLUCOSE (test code = 410 mg/dL 70-110 H 7101388639) CREATININE (test code = 0.92 mg/dL 0.5-1.04 9532367558) CALCIUM (test code = 7.5 mg/dL 8.6-10.6 L 9416936615) eGFR Calculation mL/min/1.73m2 (Non-) (test code = 5869389230) eGFR Calculation mL/min/1.73m2 () (test code = 4354843774) NISHA (test code = NISHA) Association of [...] tests). Lab Interpretation Abnormal (test code = 66293-0) [facility] 11:06:00 Test Item Value Reference Range Interpretation Comments MAGNESIUM (test code = 2573686089) 1.6 mg/dL 1.7-2.4 L Lab Interpretation (test code = Abnormal 63868-7) [facility] (for use with Heparin Practice Guideline). Note: Draw and Send all Lab STAT.2019-08-15 10:47:00 Test Item Value Reference Range Interpretation Comments APTT Patient (test code See_Comment H [Au tomated message] = 3173-2) The system [employer] generated this result transmitted ref erence range: 26 - 36 Seconds. The reference range was not used to int erpret this result as normal/abnormal . Lab Interpretation (test Abnormal code = 69274-7) [facility] WITH [id number] 10:46:00 Test Item Value Reference Range Interpretation [...] RDW-SD (test code = 39.1 fL 39-49.9 24826-9) RDW-CV (test code = 12.4 % 12-15.5 788-0) PLT (test code = See_Comment [Automated 777-3) message] The sy stem which generated this result transmitted reference range : 166 - 358 10*3/ ?L. The reference r chelsie was not used to interpret this result as normal/abnormal . MPV (test code = 10.9 fL 9.5-12.9 16653-0) NRBC/100 WBC (test See_Comment [Automat ed code = 0836508765) message] The system which generated this result transmitted reference range : 0.0 - 10.0 /100 WBCs. The refer ence range was not u sed to interpret th is result as normal/abnormal . NRBC x10^3 (test code <0.01 See_Comment [Auto mated = 2577582795) message] The s ystem which generated this result transmitted reference range : 10*3/?L. The reference range was not used to interpret this result as normal/abnormal . GRAN MAT (NEUT) % 80.6 % (test code = 770-8) IMM GRAN % (test code 0.50 % = 9655503832) LYMPH % (test code = 12.5 % 736-9) MONO % (test code = 5.8 % 5905-5) EOS % (test code = 0.4 % 713-8) BASO % (test code = 0.2 % 706-2) GRAN MAT x10^3(ANC) 8.94 10*3/uL 1.88-7.09 H (test code = 0357763457) IMM GRAN x10^3 (test 0.06 10*3/uL 0-0.06 code = 1416771153) LYMPH x10^3 (test code 1.39 10*3/uL 1.32-3.29 = 731-0) MONO x10^3 (test code 0.64 10*3/uL 0.33-0.92 = 742-7) EOS x10^3 (test code = 0.04 10*3/uL 0.03-0.39 711-2) BASO x10^3 (test code <0.03 0.01-0.07 = 704-7) Lab Interpretation Abnormal (test code = 39913-8) [facility] GLUCOSE (AUTOMATED)2019-08-15 09:48:00 Test Item Value Reference Range Interpretation Comments POCT GLU (test code = 1175271127) 319 mg/dL 70-110 H Lab Interpretation (test code = Abnormal 35135-2) [facility] GLUCOSE (AUTOMATED)2019-08-15 06:35:00 Test Item Value Reference Range Interpretation Comments POCT GLU (test code = 7439132847) 479 mg/dL 70-110 HH Lab Interpretation (test code = Abnormal 47075-0) [facility] GLUCOSE (AUTOMATED)2019-08-15 03:10:00 Test Item Value Reference Range Interpretation Comments POCT GLU (test code = 3644471329) 450 mg/dL 70-110 HH Lab Interpretation (test code = Abnormal 79538-7) [facility] (for use with Heparin Practice Guideline). Note: Draw and Send all Lab STAT.2019-08-15 02:31:00 Test Item Value Reference Range Interpretation Comments APTT Patient (test code See_Comment HH [Au tomated message] = 3173-2) The system [employer] generated this result transmitted ref erence range: 26 - 36 Seconds. The reference range was not used to int erpret this result as normal/abnormal . Lab Interpretation (test Abnormal code = 98563-1) [facility] METABOLIC PANEL (NA, K, CL, CO2, GLUCOSE, BUN, CREATININE, CA)2019-08-15 02:30:00 Test Item Value Reference Range Interpretation Comments NA (test code = 131 mmol/L 135-145 L 6127290184) K (test code = 4.6 mmol/L 3.5-5 4572521700) CL (test code = 102 mmol/L 98-108 6725793699) CO2 TOTAL (test code = 21 mmol/L 23-31 L 0501486945) AGAP (test code = 2-16 4440877057) BUN (test code = 21 mg/dL 7-23 5305287859) GLUCOSE (test code = 479 mg/dL 70-110 HH 4478323391) CREATININE (test code = 1.08 mg/dL 0.5-1.04 H 6554077577) CALCIUM (test code = 7.3 mg/dL 8.6-10.6 L 6388645915) eGFR Calculation mL/min/1.73m2 (Non-) (test code = 1873498337) eGFR Calculation mL/min/1.73m2 () (test code = 6772586674) NISHA (test code = NISHA) Association of [...] tests). Lab Interpretation Abnormal (test code = 74766-2) [facility] GLUCOSE (AUTOMATED)2019-08-15 01:59:00 Test Item Value Reference Range Interpretation Comments POCT GLU (test code = 8266727863) 471 mg/dL 70-110 HH Lab Interpretation (test code = Abnormal 52300-2) [facility] GLUCOSE (AUTOMATED)2019-08-14 22:49:00 Test Item Value Reference Range Interpretation Comments POCT GLU (test code = 4220553000) 399 mg/dL 70-110 H Lab Interpretation (test code = Abnormal 50522-8) [facility] GLUCOSE (AUTOMATED)2019-08-14 20:45:00 Test Item Value Reference Range Interpretation Comments POCT GLU (test code = 2603618434) 473 mg/dL 70-110 HH Lab Interpretation (test code = Abnormal 30266-0) [facility] (for use with Heparin Practice Guideline). Note: Draw and Send all Lab STAT.2019-08-14 19:52:00 Test Item Value Reference Range Interpretation Comments APTT Patient (test code = See_Comment [ Automated message] 3173-2) The system [employer] generated this result transmitted ref erence range: 26 - 36 Seconds. The re ference range was not u sed to interpret this result as normal/abnor mal. Lab Interpretation (test Normal code = 90150-4) [facility] GLUCOSE (AUTOMATED)2019-08-14 17:24:00 Test Item Value Reference Range Interpretation Comments POCT GLU (test code = 421 mg/dL 70-110 H Notifi ed Provider 1871659609) Lab Interpretation (test Abnormal code = 22163-1) [facility] - INFLUENZA A B RSV [id number] 16:21:00 Test Item Value Reference Range Interpretation Comments Influenza A virus by PCR (test code Negative Negative = 03979-8) Influenza B virus by PCR (test code Negative Negative = 32307-3) RSV by PCR (test code = 68973-9) Negative Negative Lab Interpretation (test code = Normal 53979-6) [facility] GLUCOSE (AUTOMATED)2019-08-14 14:00:00 Test Item Value Reference Range Interpretation Comments POCT GLU (test code = 0473064631) 314 mg/dL 70-110 H Lab Interpretation (test code = Abnormal 19447-0) [facility] (NA, K, CL, CO2, GLUCOSE, BUN, CREATININE, CA)2019-08-14 11:02:00 Test Item Value Reference Range Interpretation Comments NA (test code = 135 mmol/L 135-145 8443609507) K (test code = 4.4 mmol/L 3.5-5 2966023175) CL (test code = 106 mmol/L 98-108 2698328740) CO2 TOTAL (test code = 23 mmol/L 23-31 7737022930) AGAP (test code = 2-16 8629874871) BUN (test code = 15 mg/dL 7-23 2078395157) GLUCOSE (test code = 273 mg/dL 70-110 H 5841636987) CREATININE (test code = 1.04 mg/dL 0.5-1.04 1721902574) CALCIUM (test code = 7.5 mg/dL 8.6-10.6 L 1246517277) eGFR Calculation mL/min/1.73m2 (Non-) (test code = 7536522695) eGFR Calculation mL/min/1.73m2 () (test code = 6063043235) NISHA (test code = NISHA) Association of [...] tests). Lab Interpretation Abnormal (test code = 68934-6) [facility] 11:02:00 Test Item Value Reference Range Interpretation Comments MAGNESIUM (test code = 0216991595) 1.6 mg/dL 1.7-2.4 L Lab Interpretation (test code = Abnormal 09564-1) [facility] (for use with Heparin Practice Guideline). Note: [...] mal. Lab Interpretation (test Normal code = 84613-1) [facility] Worth[facility] WITH [id number] 10:28:00 Test Item Value Reference Range Interpretation [...] RDW-SD (test code = 41.0 fL 39-49.9 40100-4) RDW-CV (test code = 12.6 % 12-15.5 788-0) PLT (test code = See_Comment [Automated 777-3) message] The sy stem which generated this result transmitted reference range : 166 - 358 10*3/ ?L. The reference r chelsie was not used to interpret this result as normal/abnormal . MPV (test code = 10.3 fL 9.5-12.9 42170-7) NRBC/100 WBC (test See_Comment [Automat ed code = 1796224130) message] The system which generated this result transmitted reference range : 0.0 - 10.0 /100 WBCs. The refer ence range was not u sed to interpret th is result as normal/abnormal . NRBC x10^3 (test code <0.01 See_Comment [Auto mated = 4958040044) message] The s ystem which generated this result transmitted reference range : 10*3/?L. The reference range was not used to interpret this result as normal/abnormal . GRAN MAT (NEUT) % 63.5 % (test code = 770-8) IMM GRAN % (test code 0.30 % = 4695761383) LYMPH % (test code = 19.9 % 736-9) MONO % (test code = 6.3 % 5905-5) EOS % (test code = 9.7 % 713-8) BASO % (test code = 0.3 % 706-2) GRAN MAT x10^3(ANC) 6.48 10*3/uL 1.88-7.09 (test code = 1636449671) IMM GRAN x10^3 (test 0.03 10*3/uL 0-0.06 code = 5065944603) LYMPH x10^3 (test code 2.03 10*3/uL 1.32-3.29 = 731-0) MONO x10^3 (test code 0.64 10*3/uL 0.33-0.92 = 742-7) EOS x10^3 (test code = 0.99 10*3/uL 0.03-0.39 H 711-2) BASO x10^3 (test code 0.03 10*3/uL 0.01-0.07 = 704-7) Lab Interpretation Abnormal (test code = 85976-1) [facility] GLUCOSE (AUTOMATED)2019-08-14 01:29:00 Test Item Value Reference Range Interpretation Comments POCT GLU (test code = 7591404828) 236 mg/dL 70-110 H Lab Interpretation (test code = Abnormal 46084-5) [facility] (for use with Heparin Practice Guideline). Note: Draw and Send all Lab STAT.2019-08-13 23:18:00 Test Item Value Reference Range Interpretation Comments APTT Patient (test code = See_Comment [ Automated message] 3173-2) The system [employer] generated this result transmitted ref erence range: 26 - 36 Seconds. The re ference range was not u sed to interpret this result as normal/abnor mal. Lab Interpretation (test Normal code = 56357-3) [facility] GLUCOSE (AUTOMATED)2019-08-13 23:09:00 Test Item Value Reference Range Interpretation Comments POCT GLU (test code = 8472066911) 305 mg/dL 70-110 H Lab Interpretation (test code = Abnormal 19884-2) [facility] GLUCOSE (AUTOMATED)2019-08-13 19:29:00 Test Item Value Reference Range Interpretation Comments POCT GLU (test code = 4974848353) 310 mg/dL 70-110 H Lab Interpretation (test code = Abnormal 50224-4) [id number]00 Test Item Value Reference Range Interpretation Comments TROPONIN I (test 0.012 ng/mL See_Comment [Automated code = 4437524905) message] The system which generated this result [...] ? Lab Interpretation Normal (test code = 36848-4) [facility] 13:16:00 Test Item Value Reference Range Interpretation Comments POCT GLU (test code = 6498629263) 281 mg/dL 70-110 H Lab Interpretation (test code = Abnormal 22566-3) [facility] WITH [id number] 12:20:00 Test Item Value Reference Range Interpretation [...] RDW-SD (test code = 40.6 fL 39-49.9 25340-5) RDW-CV (test code = 12.7 % 12-15.5 788-0) PLT (test code = See_Comment [Automated 777-3) message] The sy stem which generated this result transmitted reference range : 166 - 358 10*3/ ?L. The reference r chelsie was not used to interpret this result as normal/abnormal . MPV (test code = 10.7 fL 9.5-12.9 68694-3) NRBC/100 WBC (test See_Comment [Automat ed code = 7236566718) message] The system which generated this result transmitted reference range : 0.0 - 10.0 /100 WBCs. The refer ence range was not u sed to interpret th is result as normal/abnormal . NRBC x10^3 (test code <0.01 See_Comment [Auto mated = 2483179184) message] The s ystem which generated this result transmitted reference range : 10*3/?L. The reference range was not used to interpret this result as normal/abnormal . GRAN MAT (NEUT) % 71.8 % (test code = 770-8) IMM GRAN % (test code 0.50 % = 3267654409) LYMPH % (test code = 12.3 % 736-9) MONO % (test code = 6.9 % 5905-5) EOS % (test code = 8.0 % 713-8) BASO % (test code = 0.5 % 706-2) GRAN MAT x10^3(ANC) 9.08 10*3/uL 1.88-7.09 H (test code = 0492189567) IMM GRAN x10^3 (test 0.06 10*3/uL 0-0.06 code = 8748045951) LYMPH x10^3 (test code 1.56 10*3/uL 1.32-3.29 = 731-0) MONO x10^3 (test code 0.87 10*3/uL 0.33-0.92 = 742-7) EOS x10^3 (test code = 1.01 10*3/uL 0.03-0.39 H 711-2) BASO x10^3 (test code 0.06 10*3/uL 0.01-0.07 = 704-7) Lab Interpretation Abnormal (test code = 00558-3) [facility] 09:19:00 Test Item Value Reference Range Interpretation Comments MAGNESIUM (test code = 1832777631) 1.5 mg/dL 1.7-2.4 L Lab Interpretation (test code = Abnormal 99572-7) [facility] CHEST 1 [id number] 08:54:25Impression: Moderate cardiomegaly without acute pulmonary process. Status post mediansternotomy. RL: 460 AFC: [id number] Indication: Chest pain Comparison: None Findings: Single [...] acute pulmonary process. Status post mediansternotomy.RL: 460AFC: [id number] signed by Gemini Martins MD, PhD at 08/13/2019 3:54 AMUnChildren[facility] PlanoGlycosylated Hemoglobin (A1C)2019-08-13 07:12:00 Test Item Value Reference Range Interpretation Comments HGB A1C (test code = 4548-4) 10.8 % 4-6 H Lab Interpretation (test code = Abnormal 73865-1) [facility]-TERMINAL TAL-[id number] 06:39:00 Test Item Value Reference Range Interpretation Comments NT-proBNP (test code 384 pg/mL See_Comment H [Autom ated = 5032019937) message] The system which generated this result transmitted reference range : <=125. The reference range was not used to interpret this result as normal/abnormal . NISHA (test code = NISHA) Biotin has been reported to cause a negative bias, interpret results relative to patient's use of biotin. Lab Interpretation Abnormal (test code = 27715-6) [facility] Worth[facility] [id number] 06:39:00 Test Item Value Reference Range Interpretation Comments TROPONIN I (test 0.008 ng/mL See_Comment [Automated code = 6442403893) message] The system which generated this result [...] ? Lab Interpretation Normal (test code = 36993-3) [facility]OL[facility] (NA, K, CL, CO2, GLUCOSE, BUN, CREATININE, CA)2019-08-13 06:35:00 Test Item Value Reference Range Interpretation Comments NA (test code = 134 mmol/L 135-145 L 3584666741) K (test code = 4.1 mmol/L 3.5-5 8741831457) CL (test code = 102 mmol/L 98-108 5660894589) CO2 TOTAL (test code = 22 mmol/L 23-31 L 3436490897) AGAP (test code = 2-16 9270848949) BUN (test code = 23 mg/dL 7-23 4165936694) GLUCOSE (test code = 324 mg/dL 70-110 H 8979711787) CREATININE (test code = 1.07 mg/dL 0.5-1.04 H 0438639786) CALCIUM (test code = 8.4 mg/dL 8.6-10.6 L 2717410300) eGFR Calculation mL/min/1.73m2 (Non-) (test code = 8789764157) eGFR Calculation mL/min/1.73m2 () (test code = 0324299152) NISHA (test code = NISHA) Association of [...] tests). Lab Interpretation Abnormal (test code = 29040-7) [facility] 06:07:00 Test Item Value Reference Range Interpretation Comments APTT Patient (test code = See_Comment [ Automated message] 3173-2) The system [employer] ([employer]) h generated this result transmitted ref erence range: 26 - 36 Seconds. The re ference range was not u sed to interpret this result as normal/abnor mal. Lab Interpretation (test Normal code = 67134-0) [facility] WorthProthrombin Time / [id number] 06:07:00 Test Item Value Reference Range Interpretation Comments PROTIME PATIENT (test See_Comment [Auto mated message] code = 5964-2) The system [employer] generated this result transmitted ref erence range: 10.1 - 1 2.6 Seconds. The re ference range was not u sed to interpret this result as normal/abnor mal. INR (test code = 6301-6) Nor mal INR <1.1; Warfarin Therap eutic range 2.0 to 3. 0 or 2.5 to 3.5, dep ending upon the indica tions. Lab Interpretation (test Normal code = 76850-4) [facility]"
[2021-06-07 00:24] LABS: Protime INR 0.97
[2021-06-07 00:25] LABS: Hematocrit 45.1 % (36.0-45.0); Lymphocytes % 36.2 % (15.3-44.8); MPV 8.3 fL (7.6-11.3)
[2021-06-07] MEDS ORDERED: NA CHLORIDE 0.9% 1,000 ML ONE (00:38)
[2021-06-07] MEDS ORDERED: ONDANSETRON 4 MG/2 ML VIAL ONE (00:38)
[2021-06-07] MEDS ORDERED: MORPHINE 4 MG/ML SYR ONE (00:38)
[2021-06-07 00:50] LABS: ALT/SGPT 19 U/L (12-78); Albumin 2.6 g/dL (3.4-5.0); Alkaline Phosphatase 156 U/L (45-117); BUN Blood Urea Nitrogen 19 mg/dL (7-18); Bicarbonate 22 mmol/L (21-32); Bilirubin Direct < 0.1 mg/dL (0-0.2); Bilirubin Total 0.3 mg/dL (0.2-1.0); Glucose Level 239 mg/dL (74-106); NT PRO-BNP 698 pg/mL (<125); Sodium Level 133 mmol/L (136-145); Troponin (Emerg Dept Use Only) < 0.02 ng/mL (0.0-0.045)
[2021-06-07 01:12] LABS: AST/SGOT 11 U/L (15-37); Magnesium 1.7 mg/dL (1.8-2.4); Potassium 3.7 mmol/L (3.5-5.1)
--- NOTE | 2021-06-07 01:23 | ER ---
Nurse's Notes [facility] Name: Karen Shah Age: 51 yrs Sex: Female : 1970 Arrival Date: 06/06/2021 Time: 19:38 Bed 4 Private MD: Diagnosis: Peripheral vascular disease, unspecified;Type 1 diabetes mellitus with hyperglycemia;Tobacco abuse counseling;Tobacco use;Hypomagnesemia Presentation: 06/06 20:26 Chief complaint: Patient states: left leg pain started around 1300 spontaneously. no tw5 precipitating events. denied taking pain medications taken at home. no swelling or redness noted. Coronavirus screen: Client denies travel out of the [place] in the last 14 days. At this time, the client does not indicate any symptoms associated with coronavirus-19. Ebola Screen: No symptoms or risks identified at this time. Initial Sepsis Screen: Does the patient meet any 2 criteria? No. Patient's initial sepsis screen is negative. Does the patient have a suspected source of infection? No. Patient's initial sepsis screen is negative. Risk Assessment: Do you want to hurt yourself or someone else? Patient reports no desire to harm self or others. Onset of symptoms was June 06, 2021. 20:26 Method Of Arrival: Wheelchair tw5 20:26 Acuity: ARIEL 4 tw5 Triage Assessment: 20:31 General: Appears in no apparent distress. comfortable, Behavior is calm, cooperative. tw5 Pain: Complains of pain in left leg Pain currently is 10 out of 10 on a pain scale. Neuro: Level of Consciousness is awake, alert, obeys commands, Oriented to person, place, time. Cardiovascular: Capillary refill < 3 seconds. Respiratory: Airway is patent Trachea midline Respiratory effort is even, unlabored, Respiratory pattern is regular, symmetrical. GI: No signs and/or symptoms were reported involving the gastrointestinal system. : No signs and/or symptoms were reported regarding the genitourinary system. Musculoskeletal: Amputation of right leg AKA. 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 - Social history:: Smoking status: Patient reports the use of cigarette tobacco products, smokes one pack cigarettes per day. - Family history:: not pertinent. Screenin/10 00:00 Abuse screen: Denies threats or abuse. Nutritional screening: No deficits noted. mk Tuberculosis screening: No symptoms or risk factors identified. Fall Risk Fall in past 12 months (25 points). Secondary diagnosis (15 points) impaired mobility, IV access (20 points). Ambulatory Aid- Crutches/Cane/Walker (15 pts). Gait- Weak (10 pts.). Mental Status- Oriented to own ability (0 pts). Total Mccall Fall Scale indicates High Risk Score (45 or more points). Side Rails Up X 2 Placed Close to Nursing Station Family Present and informed to notify staff if the need to leave the bedside As available patient and family educated on Fall Prevention Program and Strategies. Assessment: 06/06 23:15 General: Appears uncomfortable. Pain: Complains of pain in left leg Pain radiates to mk LLE, states radiates from knee to toes Pain currently is 10 out of 10 on a pain scale. at worst was 15 out of 10 on a pain scale. Quality of pain is described as aching, Pain began since lisy morning. Neuro: Level of Consciousness is awake, alert, obeys commands, Oriented to person, place, time, situation, Retail Custodial Associate are equal bilaterally Moves all extremities. Gait is steady. Cardiovascular: Reports Heart tones S1 S2 Capillary refill < 3 seconds JVD is absent Patient's skin is warm and dry. Pulses are 2+ in right radial artery, right femoral artery, left radial artery and left dorsalis pedis artery. Respiratory: Airway is patent Trachea midline Respiratory effort is even, unlabored, Respiratory pattern is regular, symmetrical, Breath sounds are clear. GI: Abdomen is flat, non-distended, Bowel sounds present X 4 quads. Abd is soft and non tender X 4 quads. : Urine is clear. Derm: No signs and/or symptoms reported regarding the dermatologic system. Musculoskeletal: Amputation of right leg. Capillary refill < 3 seconds, fingers. toes. Range of motion: intact in all extremities. 06/07 00:10 Reassessment: No changes from previously documented assessment. Patient and/or family mk updated on plan of care and expected duration. Pain level reassessed. Patient is alert, oriented x 3, equal unlabored respirations, skin warm/dry/pink. 01:10 Reassessment: No changes from previously documented assessment. Patient and/or family mk updated on plan of care and expected duration. Pain level reassessed. Patient is alert, oriented x 3, equal unlabored respirations, skin warm/dry/pink. 01:10 Pain: Complains of pain in left leg Pain currently is 5 out of 10 on a pain scale. mk Quality of pain is described as shooting. 02:12 Reassessment: No changes from previously documented assessment. Patient and/or family mk updated on plan of care and expected duration. Pain level reassessed. Patient is alert, oriented x 3, equal unlabored respirations, skin warm/dry/pink. 02:15 Pain: Complains of pain in left leg Pain currently is 7 out of 10 on a pain scale. mk Quality of pain is described as shooting, Pain began gradually. Vital Signs: 06/06 20:26 BP 141 / 91; Pulse 88; Resp 16 S; Temp 97.6(TE); Pulse Ox 100% on R/A; Weight 64.41 kg tw5 (R); Height 5 ft. 4 in. (162.56 cm) (R); Pain 03/07; 23:45 BP 120 / 81; Pulse 83; Resp 18; Pulse Ox 99% on R/A; tw5 06/07 00:45 BP 128 / 85; Pulse 85; Resp 18; Pulse Ox 99% on R/A; mk 01:45 BP 127 / 84; Pulse 78; Resp 18; Pulse Ox 98% on R/A; mk 02:31 BP 124 / 81; Pulse 78; Resp 18; Pulse Ox 98% on R/A; mk 06/06 20:26 Body Mass Index 24.37 (64.41 kg, 162.56 cm) tw5 Alyssa Coma Score: 06/06 23:45 Eye Response: spontaneous(4). Verbal Response: oriented(5). Motor Response: obeys tw5 commands(6). Total: 15. 06/07 00:45 Eye Response: spontaneous(4). Verbal Response: oriented(5). Motor Response: obeys mk commands(6). Total: 15. 01:45 Eye Response: spontaneous(4). Verbal Response: oriented(5). Motor Response: obeys mk commands(6). Total: 15. 02:31 Eye Response: spontaneous(4). Verbal Response: oriented(5). Motor Response: obeys mk commands(6). Total: 15. ED Course: 06/06 19:38 Patient arrived in ED. bp1 20:31 Triage completed. tw5 20:31 Arm band placed on Patient notified of wait time. tw5 22:59 Isidro Villa MD is Attending Physician. [facility] 23:40 Patient has correct armband on for positive identification. Allergy band placed. Placed mk in gown. Call light in reach. Side rails up X 1. 06/07 00:10 Inserted saline lock: 22 gauge in left forearm, using aseptic technique. 00:11 Alyssa Sharma is Primary Nurse. tw5 00:11 Basic Metabolic Panel Sent. tw5 00:11 CBC with Diff Sent. tw5 00:11 LFT's Sent. tw5 00:11 Magnesium Sent. tw5 00:11 NT PRO-BNP Sent. tw5 00:12 PT-INR Sent. tw5 00:12 Troponin (emerg Dept Use Only) Sent. tw5 00:12 Basic Metabolic Panel Sent. tw5 01:23 Griffin Mejia MD is Referral Physician. [facility] 01:28 Primary Nurse role handed off by Alyssa Sharma 01:28 Angela Rodriguez, RN is Primary Nurse. 01:30 Awaiting: finishing IV medications. mk 02:15 No provider procedures requiring assistance completed. 02:35 IV discontinued. mk Administered Medications: 00:41 Drug: morphine 4 mg Route: IVP; Site: left wrist; sm5 01:21 Follow up: Response: No adverse reaction 00:41 Drug: Zofran (Ondansetron) 4 mg Route: IVP; Site: left wrist; sm5 04:24 Follow up: Response: No adverse reaction 00:41 Drug: NS 0.9% 1000 ml Route: IV; Rate: 1 bolus; Site: right wrist; sm5 04:24 Follow up: Response: No adverse reaction mk 01:26 Drug: Magnesium Sulfate 1 grams Route: IVPB; Infused Over: 1 hrs; Site: left wrist; sm5 02:34 Follow up: IV Status: Completed infusion; IV Intake: 100ml mk 04:24 Follow up: Response: No adverse reaction mk Intake: 02:34 IV: 100ml; Total: 100ml. mk Outcome: 01:23 Discharge ordered by MD. gaspar 01:40 Discharged to home mk 01:40 Condition: stable 01:40 Discharge instructions given to patient, family. 02:53 Patient left the ED. Signatures: Dispatcher [employer] EDMS Isidro Villa MD MD cha Paniauga, Brittany bp1 Wood, Tiffany tw5 Marietta Son, RN RN Angela Jorgensen RN RN sujey Corrections: (The following items were deleted from the chart) 00:03 00:00 In radiology for Chest Single View+RAD.RAD.BRZ. [facility] 04:12 00:40 Awaiting: finishing IV medications [facility] 04:13 00:40 Awaiting: finishing IV medications [facility] 04:18 02:15 IV discontinued, [facility]
[2021-06-07] MEDS ORDERED: MAGNESIUM SULFATE 1 gm IVPB 1 GM/100 ML BAG IV ONE (01:24)
--- NOTE | 2021-06-07 01:24 | EDPHYS ---
Physician Documentation [facility] Name: Karen Shah Age: 51 yrs Sex: Female : 1970 Arrival Date: 06/06/2021 Time: 19:38 Bed 4 Private MD: Isidro Kincaid HPI: 06/06 23:50 This 51 yrs old Female presents to ER via Wheelchair with complaints of Leg chasity Pain. 23:50 This 51 yrs old Female presents to ER via Wheelchair with complaints of Leg chasity Pain. 23:50 The patient presents with pain, tenderness. The complaints affect the lateral aspect of chasity left thigh, lateral aspect of left knee, lateral aspect of left calf, left hamstring, posterior aspect of left knee, left calf, medial aspect of left thigh, medial aspect of left knee, medial aspect of left calf, left quadriceps, left knee and left valdivia. Context: The problem was sustained at home, resulted from a chronic condition, significant pvd. Onset: The symptoms/episode began/occurred 2 day(s) ago. 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 - Social history:: Smoking status: Patient reports the use of cigarette tobacco products, smokes one pack cigarettes per day. - Family history:: not pertinent. ROS: 23:50 Constitutional: Negative for fever, chills, and weight loss, Eyes: Negative for injury, chasity pain, redness, and discharge, ENT: Negative for injury, pain, and discharge, Neck: Negative for injury, pain, and swelling, Cardiovascular: Negative for chest pain, palpitations, and edema, Respiratory: Negative for shortness of breath, cough, wheezing, and pleuritic chest pain, Abdomen/GI: Negative for abdominal pain, nausea, vomiting, diarrhea, and constipation, Back: Negative for injury and pain, : Negative for injury, bleeding, discharge, and swelling, Skin: Negative for injury, rash, and discoloration, Neuro: Negative for headache, weakness, numbness, tingling, and seizure, Psych: Negative for depression, anxiety, suicide ideation, homicidal ideation, and hallucinations, Allergy/Immunology: Negative for hives, rash, and allergies, Endocrine: Negative for neck swelling, polydipsia, polyuria, polyphagia, and marked weight changes, Hematologic/Lymphatic: Negative for swollen nodes, abnormal bleeding, and unusual bruising. 23:50 MS/extremity: Positive for decreased range of motion, pain, tenderness, of the left leg. Exam: 23:50 Constitutional: This is a well developed, well nourished patient who is awake, alert, chasity and in no acute distress. Head/Face: Normocephalic, atraumatic. Eyes: Pupils equal round and reactive to light, extra-ocular motions intact. Lids and lashes normal. Conjunctiva and sclera are non-icteric and not injected. Cornea within normal limits. Periorbital areas with no swelling, redness, or edema. ENT: Nares patent. No nasal discharge, no septal abnormalities noted. Tympanic membranes are normal and external auditory canals are clear. Oropharynx with no redness, swelling, or masses, exudates, or evidence of obstruction, uvula midline. Mucous membranes moist. Neck: Trachea midline, no thyromegaly or masses palpated, and no cervical lymphadenopathy. Supple, full range of motion without nuchal rigidity, or vertebral point tenderness. No Meningismus. Chest/axilla: Normal chest wall appearance and motion. Nontender with no deformity. No lesions are appreciated. Cardiovascular: Regular rate and rhythm with a normal S1 and S2. No gallops, murmurs, or rubs. Normal PMI, no JVD. No pulse deficits. Respiratory: Lungs have equal breath sounds bilaterally, clear to auscultation and percussion. No rales, rhonchi or wheezes noted. No increased work of breathing, no retractions or nasal flaring. Abdomen/GI: Soft, non-tender, with normal bowel sounds. No distension or tympany. No guarding or rebound. No evidence of tenderness throughout. Back: No spinal tenderness. No costovertebral tenderness. Full range of motion. Skin: Warm, dry with normal turgor. Normal color with no rashes, no lesions, and no evidence of cellulitis. Neuro: Awake and alert, GCS 15, oriented to person, place, time, and situation. Cranial nerves II-XII grossly intact. Motor strength 5/5 in all extremities. Sensory grossly intact. Cerebellar exam normal. Normal gait. Psych: Awake, alert, with orientation to person, place and time. Behavior, mood, and affect are within normal limits. 23:50 Musculoskeletal/extremity: ROM: full active range of motion, full passive range of motion, Pulses: are absent in the left posterior tibial artery, Sensation intact. Compartment Syndrome exam of affected extremity: is normal. DVT Exam: no swelling, negative Homans' sign noted on exam, no appreciated bluish discoloration, no erythema, no increased warmth, pain, tenderness. 06/07 00:04 ECG was reviewed by the Attending Physician. chasity Vital Signs: 06/06 20:26 BP 141 / 91; Pulse 88; Resp 16 S; Temp 97.6(TE); Pulse Ox 100% on R/A; Weight 64.41 kg tw5 (R); Height 5 ft. 4 in. (162.56 cm) (R); Pain 03/07; 23:45 BP 120 / 81; Pulse 83; Resp 18; Pulse Ox 99% on R/A; tw5 06/07 00:45 BP 128 / 85; Pulse 85; Resp 18; Pulse Ox 99% on R/A; mk 01:45 BP 127 / 84; Pulse 78; Resp 18; Pulse Ox 98% on R/A; mk 02:31 BP 124 / 81; Pulse 78; Resp 18; Pulse Ox 98% on R/A; mk 06/06 20:26 Body Mass Index 24.37 (64.41 kg, 162.56 cm) tw5 Vina Coma Score: 06/06 23:45 Eye Response: spontaneous(4). Verbal Response: oriented(5). Motor Response: obeys tw5 commands(6). Total: 15. 06/07 00:45 Eye Response: spontaneous(4). Verbal Response: oriented(5). Motor Response: obeys mk commands(6). Total: 15. 01:45 Eye Response: spontaneous(4). Verbal Response: oriented(5). Motor Response: obeys mk commands(6). Total: 15. 02:31 Eye Response: spontaneous(4). Verbal Response: oriented(5). Motor Response: obeys mk commands(6). Total: 15. MDM: 06/06 22:59 Patient medically screened. chasity 23:56 Differential diagnosis: contusion, tendonitis. Data reviewed: vital signs, nurses chasity notes, old medical records, lab test result(s), EKG, radiologic studies. Data interpreted: front desk monitor: rate is 88 beats/min, rhythm is regular, Pulse oximetry: on room air is 100 %. Test interpretation: by ED physician or midlevel provider: ECG, plain radiologic studies. Counseling: I had a detailed discussion with the patient and/or guardian regarding: the historical points, exam findings, and any diagnostic results supporting the discharge/admit diagnosis, lab results, radiology results, the need for outpatient follow up, for definitive care, a substance abuse therapist. 06/06 23:50 Order name: Basic Metabolic Panel [facility] 06/06 23:50 Order name: CBC with Diff; Complete Time: 01: chasity 06/06 23:50 Order name: LFT's; Complete Time: : chasity 06/06 23:50 Order name: Magnesium; Complete Time: : chasity 06/06 23:50 Order name: NT PRO-BNP; Complete Time: : chasity 06/06 23:50 Order name: PT-INR; Complete Time: : chasity 06/06 23:50 Order name: Troponin (emerg Dept Use Only); Complete Time: : chasity 06/06 23:50 Order name: Basic Metabolic Panel; Complete Time: 01:19 EDMS 06/06 23:50 Order name: EKG; Complete Time: 23:51 chasity 06/06 23:50 Order name: Cardiac monitoring; Complete Time: 00: chasity 06/06 23:50 Order name: EKG - Nurse/Tech; Complete Time: 00: chasity 06/06 23:50 Order name: IV Saline Lock; Complete Time: 00: chasity 06/06 23:50 Order name: Labs collected and sent; Complete Time: 00: chasity 06/06 23:50 Order name: O2 Per Protocol; Complete Time: 00:11 [facility] 06/06 23:50 Order name: O2 Sat Monitoring; Complete Time: 00:35 chasity EC/10 00:04 Rate is 83 beats/min. Rhythm is regular. QRS [place] is Normal. TX interval is normal. QT chasity interval is prolonged at 436 msec. No Q waves. T waves are Normal. No ST changes noted. Clinical impression: NSR w/ Non-specific ST/T Changes and No evidence of ischemia. Interpreted by me. Reviewed by me. Administered Medications: 00:41 Drug: morphine 4 mg Route: IVP; Site: left wrist; sm5 01:21 Follow up: Response: No adverse reaction mk 00:41 Drug: Zofran (Ondansetron) 4 mg Route: IVP; Site: left wrist; sm5 04:24 Follow up: Response: No adverse reaction mk 00:41 Drug: NS 0.9% 1000 ml Route: IV; Rate: 1 bolus; Site: right wrist; sm5 04:24 Follow up: Response: No adverse reaction 01:26 Drug: Magnesium Sulfate 1 grams Route: IVPB; Infused Over: 1 hrs; Site: left wrist; sm5 02:34 Follow up: IV Status: Completed infusion; IV Intake: 100ml mk 04:24 Follow up: Response: No adverse reaction Disposition Summary: 06/07/21 01:23 Discharge Ordered Location: Home chasity Problem: new chasity Symptoms: have improved chasity Condition: Fair chasity Diagnosis - Peripheral vascular disease, unspecified chasity - Type 1 diabetes mellitus with hyperglycemia chasity - Tobacco abuse counseling chasity - Tobacco use chasity - Hypomagnesemia chasity Followup: chasity - With: Private Physician - When: 2 - 3 days - Reason: Recheck today's complaints, Continuance of care, Re-evaluation by your physician Followup: chasity - With: - When: 2 - 3 days - Reason: Recheck today's complaints, Re-evaluation by your physician Discharge Instructions: - Discharge Summary Sheet chasity - Type 1 Diabetes Mellitus, Diagnosis, Adult chasity - Hyperglycemia chasity - Peripheral Vascular Disease chasity - Steps to Quit Smoking chasity - Health Risks of Smoking chasity - Diabetes Mellitus and Nutrition, Adult chasity - Steps to Quit Smoking, [id number] chasity - Hyperglycemia, [id number] chasity - Peripheral Vascular Disease, [id number] chasity - Aspirin and Your Heart chasity Forms: - Medication Reconciliation Form chasity - Thank You Letter chasity - Antibiotic Education chasity - Prescription Opioid Use chasity Prescriptions: - Plavix 75 mg Oral Tablet - take 1 tablet by ORAL route once daily; 20 tablet; Refills: 0, Product [facility] Selection Permitted Signatures: Dispatcher [employer] EDMS Isidro Villa MD MD cha Wood, Alyssa tw5 Marietta Son RN RN sm5 Angela Rodriguez RN mk Corrections: (The following items were deleted from the chart) 06/06 23:59 23:51 Lower Extremity Artery [employer]+US.RAD.BRZ ordered. EDMS EDMS 06/07 00:03 06/06 23:50 Chest Single View+RAD.RAD.BRZ ordered. EDMS EDMS
[2021-06-07 03:05] VITALS: TEMP 97.6
[2021-06-07 03:10] VITALS: BP 127/84; O2SAT 98
== END 2021-06-07 02:53 | disposition home or self-care (01) ==
LOC: ER 19:36
DX: I73.9 Peripheral vascular disease, unspecified (principal); E10.65 Type 1 diabetes mellitus with hyperglycemia; E83.42 Hypomagnesemia; I25.10 Atherosclerotic heart disease of native coronary artery without angina pectoris; I10 Essential (primary) hypertension; F17.210 Nicotine dependence, cigarettes, uncomplicated; Z86.73 Personal history of transient ischemic attack (TIA), and cerebral infarction without residual deficits; Z89.611 Acquired absence of right leg above knee
CPT/HCPCS: 96365; 93005; 85025; 80048; 36415; 83735; 85610; 80076; 84484; 83880; 96375; 99284; J3475; J7030; J2405

== ENCOUNTER 2021-06-11 02:26 | Emergency (ER) | payer OTHER ==
--- OUTSIDE RECORDS SUMMARY | 2021-06-11 02:54 | XMS REPORT | Continuity of Care Document ---
:1970 Author Organization [facility] t Address [address] [place] [address] Care Team Providers Name Role Phone Igor [...] Expiration Date Vero neal MEDICARE PART A [id number] 2017 \\T\\ B 00:00:00 Problems Condition Condition Condition Status Onset Resolution Last Treating Co mments Source Name Details Category Date Date Treatment Clinician Date UTI UTI Disease Active Univers (urinary (urinary 8-20 ity of tract tract 00:00: [place] infection) infection) 00 Ut dical Branch Dizziness Dizziness Disease Active Uni vers 8-20 ity of 00:00: [place] 00 Medical Branch Weakness Weakness Disease Active Unive rs 8-20 ity of 00:00: [place] 00 [facility] Branch CAD in CAD in Disease Active Univers [place] 7-05 ity of artery artery 00:00: [place] [facility] Hypoglycem Hypoglycem Disease Active U nivers ia ia 6-11 ity of 00:00: [place] 00 [facility] 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 [...] 00:00: [place] involving involving 00 Medi blanquita [place] Branch coronary coronary artery of artery of [place] heart heart without without angina angina pectoris [...] 00:00: [place] involving involving 00 Medi blanquita [place] Branch coronary coronary artery of artery of [place] heart heart without without angina angina pectoris [...] Added automatic ally from request for surgery [id number] GERD GERD Disease Active Univers (gastroeso (gastroeso it y of phageal phageal [place] reflux reflux Medical disease) disease) Branch DM DM Disease Active Univers (diabetes (diabetes ity of mellitus) mellitus) [facility] Depression Depression Disease Active U nivers ity of [facility] CVA CVA Disease Active Univers (cerebral (cerebral ity of vascular vascular [place] accident) accident) [facility] CHF CHF Disease Active Univers (congestiv (congestiv it y of e heart e heart [place] failure) failure) [facility] Anxiety Anxiety Disease Active Univers ity of [facility] Angina Angina Disease Active Univers pectoris pectoris ity of [facility] H/O right H/O right Disease [...] y [facility], [facility] Hx of CABG Hx of CABG Disease Active U nivers ity of [facility] Migraines Migraines Disease Active Uni vers ity of [facility] Seizures Seizures Disease Active Unive rs ity of [facility] Unilateral Unilateral Disease Active U nivers AKA, right AKA, right it y of [facility] High High Disease Active Univers cholestero cholestero it y of l l [facility] HTN HTN Disease Active Univers (hypertens (hypertens it y of ion) ion) [facility] Unilateral Unilateral Disease Active U nivers AKA, right AKA, right it y of [facility] Unilateral Unilateral Disease Active U nivers AKA, right AKA, right it y of [facility] History of History of Problem [...] 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 Neuropathy Neuropathy Problem Active [facility] Depression Depression Problem Active [facility] with with [facility] - anxiety anxiety [facility]oria l [facility] HTN HTN Problem Active [facility] (hypertens (hypertens Charley kes - ion), ion), Memoria benign benign l [facility] Seizures Seizures Problem [facility] Coronary Coronary Problem Active [facility] t artery artery [facility] - disease disease Memoria involving involving l coronary coronary Outpat i bypass bypass ent graft of graft of Clinic s [place] heart with heart with angina angina pectoris pectoris Dependent Dependent Problem Active [facility] on on [facility] - wheelchair wheelchair Me moria l 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 Allergies, Adverse Reactions, Alerts [...] History of tobacco Cigarette Smoker University of [facility] [place] [place] Exposure to Not sure [place] of SARS-CoV-2 (event) [facility] Alcohol intake 2021-02-12 2021-02-12 Ex-drinker [facility] 00:00:00 00:00:00 (finding) [facility] Education 2021-01-15 2021-01-15 12 [facility] 00:00:00 00:00:00 [place] [facility] History SDOH 2020-05-08 2020-05-08 99 University o f Alcohol Frequency 00:00:00 [facility]00[facility]00 [facility] SDOH 2020-05-08 2020-05-08 99 University o f Alcohol Std Drinks 00:00:00 00:00:00 [facility] Branch History [facility] 2020-05-08 2020-05-08 99 [place] o f Alcohol Binge 00:00:00 00:00:00 [facility] al Branch Tobacco Comment 2020-04-03 2020-04-03 smoking since 12 Uni versity of 00:00:00 00:00:00 years old [facility] Alcohol Comment 2019-10-11 2019-10-11 rare Universit y of 00:00:00 00:00:00 [facility] Cigarettes smoked 2018-02-21 2018-02-21 Univers ity of current (pack per 00:00:00 00:00:00 [facility] ) - Reported Branch Tobacco use and 2018-02-21 2018-02-21 Never used Universit y of exposure 00:00:00 00:00:00 [facility] Sex [birth year] Universit y of 00:00:00 00:00:00 [facility] Smoking Status Start Date Stop Date Source Current every day smoker 2018-02-21 00:00:00 Uni versity of [facility] Medications Ordered Filled Start Stop Current Ordering Indication Dosage Frequency Signature Comments Components Source Medication Medication Date Date Medication? Clinician (SIG) Name Name MIRTAZAPINE 2020-05 Yes [id number] 15mg TAKE 1 Univers 15 mg 2-20 TABLET BY ity of tablet 00:00: MOUTH AT [place] 00 BEDTIME Medical Branch cefTRIAXone 2020- No 1000mg 1,000 mg, Univers (ROCEPHIN) 02-12 IV ity of 1,000 mg in 22:45: 10:44 [place], [place] NaCl 0.9% 00 :00 ONCE, 1 Medical (NS) 50 mL dose, On Bran h MINI-BAG Mon02/12/21 at 1745, Administer over 30 Minutes, 50 mL
Reas on for Anti-Infec tive: Empiric Therapy for Suspected Infection< br>Empiric Therapy Site: Urine
D uration of therapy: 72 hours cefTRIAXone No 1000mg 1,000 mg, Univers (ROCEPHIN) 02-12 IV ity of 1,000 mg in 22:45: 10:44 [place], [place] NaCl 0.9% 00 :00 ONCE, 1 Medical (NS) 50 mL dose, On Branc h MINI-BAG Mon02/12/21 at 1745, Administer over 30 Minutes, 50 mL
Reas on for Anti-Infec tive: Empiric Therapy for Suspected Infection< br>Empiric Therapy Site: Urine
D uration of therapy: 72 hours insulin 2020- No 10U 10 Units, Univ ers regular 02-12 Slow IV ity of human 21:30: 21:29 Sandra [place] (HUMULIN R) 00 :00 ONCE, 1 Medic al injection dose, On Branch 10 Units 02/12/21 at 1630, Routine NaCl 0.9% 2020- No 1000mL at 999 Uni vers (NS) bolus 02-12 mL/hr, ity of infusion 21:30: 22:08 1,000 mL, Raffy as 1,000 mL 00 :00 IV Medical [facility] ONCE, 1 dose, On Mon02/12/21 at 1630, [...] 1,000 mL 00 :00 IV Medical Piggyback, [place] ONCE, 1 dose, On Mon02/12/21 at 1630, STAT cefpodoxime 2020- No [id number] 100mg Take 1 Univers 100 mg 02-12 tablet by ity of tablet 00:00: 04:59 mouth 2 [place] 00 :00 (two) Medical times [place] daily for 7 days. cefpodoxime 2020- No [id number] 100mg Take 1 Univers 100 mg 02-12 tablet by ity of tablet 00:00: 04:59 mouth 2 [place] 00 :00 (two) Medical times [place] daily for 7 days. glipiZIDE 2020- No [id number] 10mg Take 1 U nivers 10 mg 01-18 tablet by ity of tablet 00:00: 04:59 mouth [place] 00 :00 daily for Medical 30 days. [place] glipiZIDE 2020- No [id number] 10mg Take 1 U nivers 10 mg 01-18 tablet by ity of tablet 00:00: 04:59 mouth [place] 00 :00 daily for Medical 30 days. [place] glipiZIDE 2020- No [id number] 10mg Take 1 U nivers 10 mg 01-18 tablet by ity of tablet 00:00: 00:00 mouth [place] 00 :00 daily for Medical 30 days. [place] glipiZIDE Yes 10mg 10 mg, Univer s (GLUCOTROL) 01-17 Oral, ity of tablet 10 14:00: DAILY, [place] mg 00 First dose Medical on [place] Branch 01/17/21 at 0900, Until Discontinu ed, [...] Therapy: Other (see Comments) nicotine 2020- No [id number] 1{patch Apply 1 Univers mg/24 hr 01-1720 } Patch to ity of patch 00:00: 04:59 area(s) [place] 00 :00 every 24 Medical (twenty-fo Branch ur) hours for 28 days. nicotine 14 2020- No [id number] 1{patch Apply 1 Univers mg/24 hr 01-1720 } Patch to ity of patch 00:00: 04:59 area(s) [place] 00 :00 every 24 Medical (twenty-fo Branch ur) hours for 28 days. nicotine 14 2020- No [id number] 1{patch Apply 1 Univers mg/24 hr 01-1720 } Patch to ity of patch 00:00: 04:59 area(s) [place] 00 :00 every 24 Medical (twenty-fo Branch ur) hours for 28 days. nicotine 14 2020- No [id number] 1{patch Apply 1 Univers mg/24 hr 01-1720 } Patch to ity of patch 00:00: 04:59 area(s) [place] 00 :00 every 24 Medical (twenty-fo Branch ur) hours for 28 days. nicotine 2020- No [id number] 1{patch Apply 1 Univers mg/24 hr 01-1720 } Patch to ity of patch 00:00: 04:59 area(s) [place] 00 :00 every 24 Medical (twenty-fo Branch ur) hours for 28 days. ciprofloxac 2020- No [id number] 500mg Take 1 Univers in HCl 500 01-17 tablet by ity of mg tablet 00:00: 04:59 mouth [place] 00 :00 every 12 Medical (twelve) Branch hours for 7 days. ciprofloxac No [id number] 500mg Take 1 Univers in HCl 500 01-17 tablet by ity of mg tablet 00:00: 04:59 mouth [place] 00 :00 every 12 Medical (twelve) Branch hours for 7 days. KCL 2020- No 60meq 60 mEq, Univers (KLOR-CON 01-16 Oral, ity of M20) tablet 16:00: 16:43 ONCE, 1 [place] 60 mEq 00 :00 dose, [facility] 01/16/21 at Branch 1100, Routine cefTRIAXone Yes 1000mg 1,000 mg, Univers (ROCEPHIN) 01-16 IV ity of 1,000 mg in 14:30: Piggyback, [place] NaCl 0.9% 00 Q24H ABX, Medic al (NS) 50 mL First dose [facility] MINI-BAG on [facility] 01/16/21 at 0930, Until Discontinu ed, Administer over 30 Minutes, 50 mL
Reas on for Anti-Infec tive: Empiric Therapy for Suspected Infection< br>Empiric Therapy Site: Urine
D uration of therapy: 7 days pantoprazol Yes 40mg 40 mg, Univ ers e 01-16 Oral, ity of (PROTONIX) 14:00: DAILY, [place] EC tablet 00 First dose Medi blanquita 40 mg on [facility] 01/16/21 at 0900, Until Discontinu ed, Routine ezetimibe Yes 10mg 10 mg, Univer s (ZETIA) 01-16 Oral, ity of tablet 10 14:00: DAILY, [place] mg 00 First dose Medical on [facility] 01/16/21 at 0900, Until Discontinu ed, Routine clopidogreL Yes 75mg 75 mg, Univ ers (PLAVIX) 01-16 Oral, ity of tablet 75 14:00: DAILY, [place] mg 00 First dose Medical on [facility] 01/16/21 at 0900, Until Discontinu ed, Routine aspirin Yes 81mg 81 mg, Univers chewable 01-16 Oral, ity of tablet 81 14:00: DAILY, [place] mg 00 First dose Medical on [facility] 01/16/21 at 0900, Until Discontinu ed, Routine fluconazole 2020- No 150mg 150 mg, U nivers (DIFLUCAN) 01-16 Oral, ity of tablet 150 14:00: 20:40 DAILY, [place] mg 00 :05 First dose Medical on [facility] 01/16/21 at 0900, Until Discontinu ed, TRANG
Re ason for Anti-Infec tive: Documented Infection< br>Documen anthony Infection Site: Urine
D uration of Therapy: Other (see Comments) Sliding Yes Subcutaneo Univ ers Scale 01-16 us, TID ity of Insulin - 13:00: MEALS, [place] Lispro 00 First dose Medical (HumaLOG) + (after [place] Fsbg last Testing modificati on) on [facility] 01/16/21 at 0800, Until Discontinu ed, Routine insulin NPH 15U 15 Units, Univers and regular 01-16 Subcutaneo i ty of human 70-30 02:30: 01:47 , ONCE, [place] (HUMULIN 00 :00 1 dose, Medical 70-30 U-100 [facility] INSULIN) 01/15/21 at 100 unit/mL 2130, (70-30) Routine injection 15 Units mirtazapine Yes 15mg 15 mg, Univ ers (REMERON) 01-16 Oral, QHS, ity of tablet 15 02:00: First dose [place] mg 00 on Mon [facility] 01/15/21 at Branch 2100, Until Discontinu ed, Routine atorvastati Yes 80mg 80 mg, Univ ers n (LIPITOR) 01-16 Oral, QHS, it y of tablet 80 02:00: First dose [place] mg 00 on Mon [facility] 01/15/21 at Branch 2100, Until Discontinu ed, Routine gabapentin Yes 800mg 800 mg, Uni vers (NEURONTIN) 01-16 Oral, TID, it y of tablet 800 01:00: First dose [place] mg 00 on Mon [facility] 01/15/21 at Branch 2000, Until Discontinu ed, Routine nicotine Yes 1{patch 1 Patch, Un cali (NICODERM) 01-15 } Topical, ity o f 14 mg/24 hr 23:15: Administer [place] patch 1 00 over 24 Medical Patch Hours, [place] Q24H, First dose on Mon01/15/21 at 1815, Until Discontinu ed, Routine insulin NPH Yes 40U 40 Units, U nivers and regular 8- Subcutaneo it y of human 70-30 22:45: us, BIDAC, [place] (HUMULIN 00 First dose [...] 01-15 IV Push, ity of mg 21:58: [place] 52 Starting Medical Fri [place] 01/15/21 at 1658, Until Discontinu ed, Routine, Pain (scale 7-10) ondansetron 0 Yes 4mg 4 mg, Slow Univers (ZOFRAN 8- IV Push, ity of (PF)) 21:32: Q6HPRTrego, [place] injection 4 17 Starting Medi blanquita [...] Routine, Pain (scale 1-3) gabapentin 2020-0 Yes [id number] 800mg Take 1 Univers 800 mg 8-20 tablet by ity of tablet 00:00: mouth (three) Medical times Branch daily. gabapentin 2020-0 Yes [id number] 800mg Take 1 Univers 800 mg 8-20 tablet by ity of tablet 00:00: mouth (three) Medical times Branch daily. gabapentin 2020-0 Yes [id number] 800mg Take 1 Univers 800 mg 8-20 tablet by ity of tablet 00:00: mouth ([facility]) Medical times Branch daily. gabapentin 2020-0 Yes [id number] 800mg Take 1 Univers 800 mg 8-20 tablet by ity of tablet 00:00: mouth (three) Medical times Branch daily. gabapentin 2020-0 Yes [id number] 800mg Take 1 Univers 800 mg 8-20 tablet by ity of tablet 00:00: mouth (three) Medical times Branch daily. gabapentin 2020-0 Yes [id number] 800mg Take 1 Univers 800 mg 8-20 tablet by ity of tablet 00:00: mouth (three) Medical times Branch daily. gabapentin 2020-0 Yes [id number] 800mg Take 1 Univers 800 mg 8-20 tablet by ity of tablet 00:00: mouth (three) Medical times Branch daily. gabapentin 2020-0 Yes [id number] 800mg Take 1 Univers 800 mg 8-20 tablet by ity of tablet 00:00: mouth (three) Medical times Branch daily. gabapentin 2020-0 Yes [id number] 800mg Take 1 Univers 800 mg 8-20 tablet by ity of tablet 00:00: mouth (three) Medical times Branch daily. gabapentin 2020-0 Yes [id number] 800mg Take 1 Univers 800 mg 8-20 tablet by ity of tablet 00:00: mouth 3 [place] 00 (three) Medical times Branch daily. ondansetron Yes [id number] 4mg Take 1 Univers 4 mg 8-06 tablet by ity of disintegrat 00:00: mouth [place] ing tablet 00 every 8 Medica l (eight) Branch hours as needed for Nausea and Vomiting (N/V). ondansetron Yes [id number] 4mg Take 1 Univers 4 mg 8-06 tablet by ity of disintegrat 00:00: mouth [place] ing tablet 00 every 8 Medica l (eight) Branch hours as needed for Nausea and Vomiting (N/V). ondansetron Yes [id number] 4mg Take 1 Univers 4 mg 8-06 tablet by ity of disintegrat 00:00: mouth [place] ing tablet 00 every 8 Medica l (eight) Branch hours as needed for Nausea and Vomiting (N/V). ondansetron Yes [id number] 4mg Take 1 Univers 4 mg 8-06 tablet by ity of disintegrat 00:00: mouth [place] ing tablet 00 every 8 Medica l (eight) Branch hours as needed for Nausea and Vomiting (N/V). ondansetron Yes [id number] 4mg Take 1 Univers 4 mg 8-06 tablet by ity of disintegrat 00:00: mouth [place] ing tablet 00 every 8 Medica l (eight) Branch hours as needed for Nausea and Vomiting (N/V). ondansetron Yes [id number] 4mg Take 1 Univers 4 mg 8-06 tablet by ity of disintegrat 00:00: mouth [place] ing tablet 00 every 8 Medica l (eight) Branch hours as needed for Nausea and Vomiting (N/V). glucagon 3 Yes [id number] 1{spray Use 1 Univers mg/actuatio 8-06 } [place] in ity of n [place] 00:00: each 00 nostril as Medical needed Branch (hypoglyce filomena). ondansetron Yes [id number] 4mg Take 1 Univers 4 mg 8-06 tablet by ity of disintegrat 00:00: mouth [place] ing tablet 00 every 8 Medica l (eight) Branch hours as needed for Nausea and Vomiting (N/V). glucagon 3 Yes [id number] 1{spray Use 1 Univers mg/actuatio 8-06 } [place] in ity of n [place] 00:00: each [place] 00 nostril as Medical needed Branch (hypoglyce filomena). ondansetron Yes [id number] 4mg Take 1 Univers 4 mg 8-06 tablet by ity of disintegrat 00:00: mouth [place] ing tablet 00 every 8 Medica l (eight) Branch hours as needed for Nausea and Vomiting (N/V). glucagon 3 Yes [id number] 1{spray Use 1 Univers mg/actuatio 8-06 } [place] in ity of n [place] 00:00: each [place] 00 nostril as Medical needed Branch (hypoglyce filomena). ondansetron Yes [id number] 4mg Take 1 Univers 4 mg 8-06 tablet by ity of disintegrat 00:00: mouth [place] ing tablet 00 every 8 Medica l (eight) Branch hours as needed for Nausea and Vomiting (N/V). ondansetron Yes [id number] 4mg Take 1 Univers 4 mg 8-06 tablet by ity of disintegrat 00:00: mouth [place] ing tablet 00 every 8 Medica l (eight) Branch hours as needed for Nausea and Vomiting (N/V). ondansetron Yes [id number] 4mg Take 1 Univers 4 mg 8-06 tablet by ity of disintegrat 00:00: mouth [place] ing tablet 00 every 8 Medica l (eight) Branch hours as needed for Nausea and Vomiting (N/V). ondansetron Yes [id number] 4mg Take 1 Univers 4 mg 8-06 tablet by ity of disintegrat 00:00: mouth [place] ing tablet 00 every 8 Medica l (eight) Branch hours as needed for Nausea and Vomiting (N/V). glucagon 3 2020- No [id number] 1{spray Use 1 Univers mg/actuatio 8-06 08-20 } [place] in ity of n [place] 00:00: 00:00 each [place] 00 :00 nostril as Medical needed Branch (hypoglyce filomena). glucagon 3 2020-2020- No [id number] 1{spray Use 1 Univers mg/actuatio 01-0120 } [place] in ity of n [place] 00:00: 00:00 each [place] 00 :00 nostril as Medical needed Branch (hypoglyce filomena). glucagon 3 2020- No [id number] 1{spray Use 1 Univers mg/actuatio 01-0120 } [place] in ity of n [place] 00:00: 00:00 each [place] 00 :00 nostril as Medical needed Branch (hypoglyce filomena). GABAPENTIN Yes [id number] TAKE 1 Univers 800 mg 7-23 TABLET BY ity of tablet 00:00: MOUTH [place] 00 THREE Medical TIMES Branch DAILY GABAPENTIN 2020-0 2020- No [id number] TAKE 1 Univers 800 mg 7-23 08-19 TABLET BY ity of tablet 00:00: 00:00 MOUTH [place] 00 :00 THREE Medical TIMES Branch DAILY GABAPENTIN 2020-0 2020- No [id number] TAKE 1 Univers 800 mg 7-23 08-19 TABLET BY ity of tablet 00:00: 00:00 MOUTH [place] 00 :00 THREE Medical TIMES Branch DAILY aspirin 81 0 Yes [id number] 81mg Take 1 U nivers mg chewable 7-07 tablet by ity of tablet 00:00: mouth [place] 00 daily. Medical Branch clopidogreL 0 Yes [id number] 75mg Take 1 Univers 75 mg 7-07 tablet by ity of tablet 00:00: mouth [place] 00 daily. Medical Branch aspirin 81 2020-0 Yes [id number] 81mg Take 1 U nivers mg chewable 7-07 tablet by ity of tablet 00:00: mouth [place] 00 daily. Medical Branch clopidogreL 2020-0 Yes [id number] 75mg Take 1 Univers 75 mg 7-07 tablet by ity of tablet 00:00: mouth [place] 00 daily. Medical Branch aspirin 81 2020-0 Yes [id number] 81mg Take 1 U nivers mg chewable 7-07 tablet by ity of tablet 00:00: mouth [place] 00 daily. Medical Branch clopidogreL 2020-0 Yes [id number] 75mg Take 1 Univers 75 mg 7-07 tablet by ity of tablet 00:00: mouth [place] 00 daily. Medical Branch aspirin 81 2020-0 Yes [id number] 81mg Take 1 U nivers mg chewable 7-07 tablet by ity of tablet 00:00: mouth [place] 00 daily. Medical Branch clopidogreL 2020-0 Yes [id number] 75mg Take 1 Univers 75 mg 7-07 tablet by ity of tablet 00:00: mouth [place] 00 daily. Medical Branch aspirin 81 2020-0 Yes [id number] 81mg Take 1 U nivers mg chewable 7-07 tablet by ity of tablet 00:00: mouth [place] 00 daily. Medical Branch clopidogreL 2020-0 Yes [id number] 75mg Take 1 Univers 75 mg 7-07 tablet by ity of tablet 00:00: mouth [place] 00 daily. Medical Branch aspirin 81 2020-0 Yes [id number] 81mg Take 1 U nivers mg chewable 7-07 tablet by ity of tablet 00:00: mouth [place] 00 daily. Medical Branch clopidogreL 2020-0 Yes [id number] 75mg Take 1 Univers 75 mg 7-07 tablet by ity of tablet 00:00: mouth [place] 00 daily. Medical Branch aspirin 81 2020-0 Yes [id number] 81mg Take 1 U nivers mg chewable 7-07 tablet by ity of tablet 00:00: mouth [place] 00 daily. Medical Branch clopidogreL 2020-0 Yes [id number] 75mg Take 1 Univers 75 mg 7-07 tablet by ity of tablet 00:00: mouth [place] 00 daily. Medical Branch aspirin 81 2020-0 Yes [id number] 81mg Take 1 U nivers mg chewable 7-07 tablet by ity of tablet 00:00: mouth [place] 00 daily. Medical Branch clopidogreL 2020-0 Yes [id number] 75mg Take 1 Univers 75 mg 7-07 tablet by ity of tablet 00:00: mouth [place] 00 daily. Medical Branch aspirin 81 2020-0 Yes [id number] 81mg Take 1 U nivers mg chewable 7-07 tablet by ity of tablet 00:00: mouth [place] 00 daily. Medical Branch clopidogreL 2020-0 Yes [id number] 75mg Take 1 Univers 75 mg 7-07 tablet by ity of tablet 00:00: mouth [place] 00 daily. Medical Branch aspirin 81 2020-0 Yes [id number] 81mg Take 1 U nivers mg chewable 7-07 tablet by ity of tablet 00:00: mouth [place] 00 daily. Medical Branch clopidogreL 2020-0 Yes [id number] 75mg Take 1 Univers 75 mg 7-07 tablet by ity of tablet 00:00: mouth [place] 00 daily. Medical Branch aspirin 81 2020-0 Yes [id number] 81mg Take 1 U nivers mg chewable 7-07 tablet by ity of tablet 00:00: mouth [place] 00 daily. Medical Branch clopidogreL 2020-0 Yes [id number] 75mg Take 1 Univers 75 mg 7-07 tablet by ity of tablet 00:00: mouth [place] 00 daily. Medical Branch aspirin 81 2020-0 Yes [id number] 81mg Take 1 U nivers mg chewable 7-07 tablet by ity of tablet 00:00: mouth [place] 00 daily. Medical Branch aspirin 81 2020-0 Yes [id number] 81mg Take 1 U nivers mg chewable 7-07 tablet by ity of tablet 00:00: mouth [place] 00 daily. Medical Branch clopidogreL 2020-0 Yes [id number] 75mg Take 1 Univers 75 mg 7-07 tablet by ity of tablet 00:00: mouth [place] 00 daily. Medical Branch clopidogreL 2020-0 Yes [id number] 75mg Take 1 Univers 75 mg 7-07 tablet by ity of tablet 00:00: mouth [place] 00 daily. Medical Branch aspirin 81 2020-0 Yes [id number] 81mg Take 1 U nivers mg chewable 7-07 tablet by ity of tablet 00:00: mouth [place] 00 daily. Medical Branch clopidogreL 2020-0 Yes [id number] 75mg Take 1 Univers 75 mg 7-07 [...] [place] mg 00 First dose Medical on [facility] 12/01/20 at 0900, Until Discontinu ed, Routine pantoprazol 0 Yes 40mg 40 mg, Univ ers e - Oral, ity of (PROTONIX) 14:00: DAILY, [place] EC tablet 00 First dose Medi blanquita 40 mg on [facility] 12/01/20 at 0900, Until Discontinu ed, Routine clopidogreL Yes [id number] 75mg 75 mg, Univers (PLAVIX) 12-01 Oral, ity of tablet 75 14:00: DAILY, [place] mg 00 First dose Medical on [facility] 12/01/20 at 0900, Until Discontinu ed, Routine
[employer] team member approving Restricted medication : [place] aspirin Yes [id number] 81mg 81 mg, [facility] ers chewable 12-01 Oral, ity of tablet 81 14:00: DAILY, [place] mg 00 First dose Medical on [facility] 12/01/20 at 0900, Until Discontinu ed, Routine heparin Yes 5000U 5,000 Univers (porcine) 12-01 Units, ity of injection 13:00: Subcutaneo [place] 5,000 Units 00 us, Q12H, Med ical First dose Branch on [facility] 12/01/20 at 0800, Until Discontinu ed, Routine gabapentin Yes 800mg 800 mg, Uni vers (NEURONTIN) 12-01 Oral, TID, it y of tablet 800 13:00: First dose [place] mg 00 on [facility] 12/01/20 at Branch 0800, Until Discontinu ed, Routine magnesium 2020- No 4g 4 g, IV [facility] ers sulfate in 12-01 Piggyback, it y of water 4 12:45: 14:07 ONCE, 1 [place] gram/50 mL 00 :00 dose, [facility] blanquita (8 %) IV 12/01/20 at [place] Piggyback 4 0745, g Routine insulin NPH Yes 40U 40 Units, U nivers and regular 12-01 Subcutaneo it y of human 70-30 12:30: us, BIDAC, [place] (HUMULIN 00 First dose Medic al 70-30 U-100 on [facility] INSULIN) 12/01/20 at 100 unit/mL 0730, (70-30) Until injection Discontinu 40 Units ed, Routine NaCl 0.9% 2020- No 1000mL at 20 [facility] ers (NS) IV 12-01 mL/hr, IV ity [...] ity of (PF)) 20:53: 20:53 TITRATE - [place] injection 44 :44 FOR Medical PROCEDURE Branch USE, 1 dose, Starting 11/30/20 at 1553, Until 11/30/20 at 1553, Routine midazolam 2020- No IV Push, Uni vers (VERSED) 11-30 TITRATE - ity o f injection 20:53: 20:53 FOR [place] 37 :37 PROCEDURE Medical USE, 1 Branch dose, Starting 11/30/20 at 1553, Until Mon11/30/20 at 1553, Routine insulin 2020- No [id number] 10U 10 Units, Univers lispro 11-30 Subcutaneo ity of (human) 18:00: 18:15 us, ONCE, [place] (HumaLOG 00 :00 1 dose, Medical U-100) Mon11/30/20 Branch injection at 1300, 10 Units Routine ezetimibe Yes [id number] 10mg Take 1 U nivers 10 mg 6-18 tablet by ity of tablet 00:00: mouth [place] 00 daily. Medical Branch furosemide 2020- Yes [id number] 1 tablet Univers 20 mg 6-18 02 as needed ity of tablet 00:00: for leg [place] swelling Medical Branch ezetimibe 2020-0 Yes [id number] 10mg Take 1 U nivers 10 mg 6-18 tablet by ity of tablet 00:00: mouth [place] 00 daily. Medical Branch furosemide 2020-0 Yes [id number] 1 tablet Univers 20 mg 6-18 02 as needed ity of tablet 00:00: for leg [place] swelling Medical Branch ezetimibe 2020-0 Yes [id number] 10mg Take 1 U nivers 10 mg 6-18 tablet by ity of tablet 00:00: mouth [place] 00 daily. Medical Branch furosemide 2020-0 Yes [id number] 1 tablet Univers 20 mg 6-18 02 as needed ity of tablet 00:00: for leg [place] swelling Medical Branch ezetimibe 2020-0 Yes [id number] 10mg Take 1 U nivers 10 mg 6-18 tablet by ity of tablet 00:00: mouth [place] 00 daily. Medical Branch furosemide 2021-0 Yes [id number] 1 tablet Univers 20 mg 6-18 02 as needed ity of tablet 00:00: for leg swelling Medical Branch ezetimibe 1-0 Yes [id number] 10mg Take 1 U nivers 10 mg 6-18 tablet by ity of tablet 00:00: mouth [place] 00 daily. Medical Branch furosemide 1-0 Yes [id number] 1 tablet Univers 20 mg 6-18 02 as needed ity of tablet 00:00: for leg swelling Medical Branch ezetimibe 1-0 Yes [id number] 10mg Take 1 U nivers 10 mg 6-18 tablet by ity of tablet 00:00: mouth [place] 00 daily. Medical Branch furosemide 1-0 Yes [id number] 1 tablet Univers 20 mg 6-18 02 as needed ity of tablet 00:00: for leg swelling Medical Branch ezetimibe 1-0 Yes [id number] 10mg Take 1 U nivers 10 mg 6-18 tablet by ity of tablet 00:00: mouth [place] 00 daily. Medical Branch furosemide 1-0 Yes [id number] 1 tablet Univers 20 mg 6-18 02 as needed ity of tablet 00:00: for leg swelling Medical Branch ezetimibe 1-0 Yes [id number] 10mg Take 1 U nivers 10 mg 6-18 tablet by ity of tablet 00:00: mouth [place] 00 daily. Medical Branch furosemide 1-0 Yes [id number] 1 tablet Univers 20 mg 6-18 02 as needed ity of tablet 00:00: for leg swelling Medical Branch ezetimibe 2021-0 Yes [id number] 10mg Take 1 U nivers 10 mg 6-18 tablet by ity of tablet 00:00: mouth [place] 00 daily. Medical Branch furosemide 2021-0 Yes [id number] 1 tablet Univers 20 mg 6-18 02 as needed ity of tablet 00:00: for leg swelling Medical Branch ezetimibe 2021-0 Yes [id number] 10mg Take 1 U nivers 10 mg 6-18 tablet by ity of tablet 00:00: mouth [place] 00 daily. Medical Branch furosemide 1-0 Yes [id number] 1 tablet Univers 20 mg 6-18 02 as needed ity of tablet 00:00: for leg swelling Medical Branch ezetimibe 2021-0 Yes [id number] 10mg Take 1 U nivers 10 mg 6-18 tablet by ity of tablet 00:00: mouth [place] 00 daily. Medical Branch furosemide 2021-0 Yes [id number] 1 tablet Univers 20 mg 6-18 02 as needed ity of tablet 00:00: for leg swelling Medical Branch ezetimibe 2021-0 Yes [id number] 10mg Take 1 U nivers 10 mg 6-18 tablet by ity of tablet 00:00: mouth [place] 00 daily. Medical Branch furosemide 2021-0 Yes [id number] 1 tablet Univers 20 mg 6-18 02 as needed ity of tablet 00:00: for leg swelling Medical Branch ezetimibe 2021-0 Yes [id number] 10mg Take 1 U nivers 10 mg 6-18 tablet by ity of tablet 00:00: mouth [place] 00 daily. Medical Branch furosemide 2021-0 Yes [id number] 1 tablet Univers 20 mg 6-18 02 as needed ity of tablet 00:00: for leg swelling Medical Branch ezetimibe 2021-0 Yes [id number] 10mg Take 1 U nivers 10 mg 6-18 tablet by ity of tablet 00:00: mouth [place] 00 daily. Medical Branch furosemide 2021-0 Yes [id number] 1 tablet Univers 20 mg 6-18 02 as needed ity of tablet 00:00: for leg swelling Medical Branch ezetimibe 2021-0 Yes [id number] 10mg Take 1 U nivers 10 mg 6-18 tablet by ity of tablet 00:00: mouth [place] 00 daily. Medical Branch furosemide 2021-0 Yes [id number] 1 tablet Univers 20 mg 6-18 02 as needed ity of tablet 00:00: for leg swelling Medical Branch ezetimibe 2021-0 Yes [id number] 10mg Take 1 U nivers 10 mg 6-18 tablet by ity of tablet 00:00: mouth [place] 00 daily. Medical Branch furosemide 2021-0 Yes [id number] 1 tablet Univers 20 mg 6-18 02 as needed ity of tablet 00:00: for leg swelling Medical Branch ezetimibe 2021-0 Yes [id number] 10mg Take 1 U nivers 10 mg 6-18 tablet by ity of tablet 00:00: mouth [place] 00 daily. Medical Branch furosemide 2020-0 Yes [id number] 1 tablet Univers 20 mg 6-18 02 as needed ity of tablet 00:00: for leg swelling Medical Branch ezetimibe 2020-0 Yes [id number] 10mg Take 1 U nivers 10 mg 6-18 tablet by ity of tablet 00:00: mouth [place] 00 daily. Medical Branch furosemide 2020-0 Yes [id number] 1 tablet Univers 20 mg 6-18 02 as needed ity of tablet 00:00: for leg swelling Medical Branch ezetimibe 2020-0 Yes [id number] 10mg Take 1 U nivers 10 mg 6-18 tablet by ity of tablet 00:00: mouth [place] 00 daily. Medical Branch furosemide 2020-0 Yes [id number] 1 tablet Univers 20 mg 6-18 02 as needed ity of tablet 00:00: for leg swelling Medical Branch ezetimibe 2020-0 Yes [id number] 10mg Take 1 U nivers 10 mg 6-18 tablet by ity of tablet 00:00: mouth [place] 00 daily. Medical Branch furosemide 2020-0 Yes [id number] 1 tablet Univers 20 mg 6-18 02 as needed ity of tablet 00:00: for leg swelling Medical Branch ezetimibe 2020-0 Yes [id number] 10mg Take 1 U nivers 10 mg 6-18 tablet by ity of tablet 00:00: mouth [place] 00 daily. Medical Branch furosemide 2020-0 Yes [id number] 1 tablet Univers 20 mg 6-18 02 as needed ity of tablet 00:00: for leg swelling Medical Branch insulin NPH 2020-0 Yes [id number] 40U inject Univers and regular 5-12 40-50 ity of human 70-30 00:00: Units [place] (NOVOLIN 00 under the Medica l 70/30 U-100 skin 2 Branch INSULIN) (two) 100 unit/mL times (70-30) daily injection before breakfast and dinner. FREESTYLE 2020-0 Yes [id number] 1{kit} 1 Kit Univers RASHARD 2 5-12 every 14 ity of SENSOR Kit 00:00: (fourteen) [place] 00 days. Medical Branch insulin NPH Yes [id number] 40U inject Univers and regular 5-12 40-50 ity of human 70-30 00:00: Units [place] (NOVOLIN 00 under the Medica l 70/30 U-100 skin 2 Branch INSULIN) (two) 100 unit/mL times (70-30) daily injection before breakfast and dinner. FREESTYLE Yes [id number] 1{kit} 1 Kit Univers RASHARD 2 5-12 every 14 ity of SENSOR Kit 00:00: (fourteen) [place] days. Medical Branch insulin NPH Yes [id number] 40U inject Univers and regular 5-12 40-50 ity of human 70-30 00:00: Units [place] (NOVOLIN 00 under the Medica l 70/30 U-100 skin 2 Branch INSULIN) (two) 100 unit/mL times (70-30) daily injection before breakfast and dinner. FREESTYLE Yes [id number] 1{kit} 1 Kit Univers RASHARD 2 5-12 every 14 ity of SENSOR Kit 00:00: (fourteen) [place] days. Medical Branch insulin NPH Yes [id number] 40U inject Univers and regular 5-12 40-50 ity of human 70-30 00:00: Units [place] (NOVOLIN 00 under the Medica l 70/30 U-100 skin 2 Branch INSULIN) (two) 100 unit/mL times (70-30) daily injection before breakfast and dinner. insulin NPH Yes [id number] 40U inject Univers and regular 5-12 40-50 ity of human 70-30 00:00: Units [place] (NOVOLIN 00 under the Medica l 70/30 U-100 skin 2 Branch INSULIN) (two) 100 unit/mL times (70-30) daily injection before breakfast and dinner. insulin NPH Yes [id number] 40U inject Univers and regular 5-12 40-50 ity of human 70-30 00:00: Units [place] (NOVOLIN 00 under the Medica l 70/30 U-100 skin 2 Branch INSULIN) (two) 100 unit/mL times (70-30) daily injection before breakfast and dinner. insulin NPH Yes [id number] 40U inject Univers and regular 5-12 40-50 ity of human 70-30 00:00: Units [place] (NOVOLIN 00 under the Medica l 70/30 U-100 skin 2 Branch INSULIN) (two) 100 unit/mL times (70-30) daily injection before breakfast and dinner. insulin NPH 0 Yes [id number] 40U inject Univers and regular 5-12 40-50 ity of human 70-30 00:00: Units [place] (NOVOLIN 00 under the Medica l 70/30 U-100 skin 2 Branch INSULIN) (two) 100 unit/mL times (70-30) daily injection before breakfast and dinner. insulin NPH 0 Yes [id number] 40U inject Univers and regular 5-12 40-50 ity of human 70-30 00:00: Units [place] (NOVOLIN 00 under the Medica l 70/30 U-100 skin 2 Branch INSULIN) (two) 100 unit/mL times (70-30) daily injection before breakfast and dinner. insulin NPH Yes [id number] 40U inject Univers and regular 5-12 40-50 ity of human 70-30 00:00: Units [place] (NOVOLIN 00 under the Medica l 70/30 U-100 skin 2 Branch INSULIN) (two) 100 unit/mL times (70-30) daily injection before breakfast and dinner. insulin NPH 0 Yes [id number] 40U inject Univers and regular 5-12 40-50 ity of human 70-30 00:00: Units [place] (NOVOLIN 00 under the Medica l 70/30 U-100 skin 2 Branch INSULIN) (two) 100 unit/mL times (70-30) daily injection before breakfast and dinner. insulin NPH 0 Yes [id number] 40U inject Univers and regular 5-12 40-50 ity of human 70-30 00:00: Units [place] (NOVOLIN 00 under the Medica l 70/30 U-100 skin 2 Branch INSULIN) (two) 100 unit/mL times (70-30) daily injection before breakfast and dinner. insulin NPH 0 Yes [id number] 40U inject Univers and regular 5-12 40-50 ity of human 70-30 00:00: Units [place] (NOVOLIN 00 under the Medica l 70/30 U-100 skin 2 Branch INSULIN) (two) 100 unit/mL times (70-30) daily injection before breakfast and dinner. insulin NPH 0 Yes [id number] 40U inject Univers and regular 5-12 40-50 ity of human 70-30 00:00: Units [place] (NOVOLIN 00 under the Medica l 70/30 U-100 skin 2 Branch INSULIN) (two) 100 unit/mL times (70-30) daily injection before breakfast and dinner. insulin NPH 0 Yes [id number] 40U inject Univers and regular 5-12 40-50 ity of human 70-30 00:00: Units [place] (NOVOLIN 00 under the Medica l 70/30 U-100 skin 2 Branch INSULIN) (two) 100 unit/mL times (70-30) daily injection before breakfast and dinner. insulin NPH 0 Yes [id number] 40U inject Univers and regular 5-12 40-50 ity of human 70-30 00:00: Units [place] (NOVOLIN 00 under the Medica l 70/30 U-100 skin 2 Branch INSULIN) (two) 100 unit/mL times (70-30) daily injection before breakfast and dinner. insulin NPH 0 Yes [id number] 40U inject Univers and regular 5-12 40-50 ity of human 70-30 00:00: Units [place] (NOVOLIN 00 under the Medica l 70/30 U-100 skin 2 Branch INSULIN) (two) 100 unit/mL times (70-30) daily injection before breakfast and dinner. insulin NPH 0 Yes [id number] 40U inject Univers and regular 5-12 40-50 ity of human 70-30 00:00: Units [place] (NOVOLIN 00 under the Medica l 70/30 U-100 skin 2 Branch INSULIN) (two) 100 unit/mL times (70-30) daily injection before breakfast and dinner. insulin NPH 0 Yes [id number] 40U inject Univers and regular 5-12 40-50 ity of human 70-30 00:00: Units [place] (NOVOLIN 00 under the Medica l 70/30 U-100 skin 2 Branch INSULIN) (two) 100 unit/mL times (70-30) daily injection before breakfast and dinner. insulin NPH 0 Yes [id number] 40U inject Univers and regular 5-12 40-50 ity of human 70-30 00:00: Units [place] (NOVOLIN 00 under the Medica l 70/30 U-100 skin 2 Branch INSULIN) (two) 100 unit/mL times (70-30) daily injection before breakfast and dinner. insulin NPH Yes [id number] 40U inject Univers and regular 5-12 40-50 ity of human 70-30 00:00: Units [place] (NOVOLIN 00 under the Medica l 70/30 U-100 skin 2 Branch INSULIN) (two) 100 unit/mL times (70-30) daily injection before breakfast and dinner. insulin NPH Yes [id number] 40U inject Univers and regular 5-12 40-50 ity of human 70-30 00:00: Units [place] (NOVOLIN 00 under the Medica l 70/30 U-100 skin 2 Branch INSULIN) (two) 100 unit/mL times (70-30) daily injection before breakfast and dinner. insulin NPH Yes [id number] 40U inject Univers and regular 5-12 40-50 ity of human 70-30 00:00: Units [place] (NOVOLIN 00 under the Medica l 70/30 U-100 skin 2 Branch INSULIN) (two) 100 unit/mL times (70-30) daily injection before breakfast and dinner. insulin NPH Yes [id number] 40U inject Univers and regular 5-12 40-50 ity of human 70-30 00:00: Units [place] (NOVOLIN 00 under the Medica l 70/30 U-100 skin 2 Branch INSULIN) (two) 100 unit/mL times (70-30) daily injection before breakfast and dinner. insulin NPH Yes [id number] 40U inject Univers and regular 5-12 40-50 ity of human 70-30 00:00: Units [place] (NOVOLIN 00 under the Medica l 70/30 U-100 skin 2 Branch INSULIN) (two) 100 unit/mL times (70-30) daily injection before breakfast and dinner. FREESTYLE 2020- No [id number] 1{kit} 1 Kit Univers RASHARD 2 10-0718 every 14 ity of SENSOR Kit 00:00: 00:00 (fourteen) [place] 00 :00 days. Medical Branch FREESTYLE 2020- No [id number] 1{kit} 1 Kit Univers RASHARD 2 12 06-18 every 14 ity of SENSOR Kit 00:00: 00:00 (fourteen) [place] 00 :00 days. Medical Branch mirtazapine Yes [id number] 15mg Take 1 Univers 15 mg 5-06 tablet by ity of tablet 00:00: mouth at [place] [address] bedtime. Medical Branch atorvastati Yes [id number] 80mg Take 1 Univers n 80 mg 5-06 tablet by ity of tablet 00:00: mouth at [place] [address] bedtime. Medical Branch glipiZIDE Yes [id number] 5mg Take 0.5 Univers 10 mg 5-06 tablets by ity of tablet 00:00: mouth 2 [place] (two) Medical times Branch daily before breakfast and dinner. mirtazapine Yes [id number] 15mg Take 1 Univers 15 mg 5-06 tablet by ity of tablet 00:00: mouth at [place] [address] bedtime. Medical Branch atorvastati Yes [id number] 80mg Take 1 Univers n 80 mg 5-06 tablet by ity of tablet 00:00: mouth at [place] [address] bedtime. Medical Branch glipiZIDE Yes [id number] 5mg Take 0.5 Univers 10 mg 5-06 tablets by ity of tablet 00:00: mouth 2 [place] (two) Medical times Branch daily before breakfast and dinner. mirtazapine Yes [id number] 15mg Take 1 Univers 15 mg 5-06 tablet by ity of tablet 00:00: mouth at [place] [address] bedtime. Medical Branch atorvastati Yes [id number] 80mg Take 1 Univers n 80 mg 5-06 tablet by ity of tablet 00:00: mouth at [place] [address] bedtime. Medical Branch mirtazapine Yes [id number] 15mg Take 1 Univers 15 mg 5-06 tablet by ity of tablet 00:00: mouth at [place] [address] bedtime. Medical Branch atorvastati Yes [id number] 80mg Take 1 Univers n 80 mg 5-06 tablet by ity of tablet 00:00: mouth at [place] [address] bedtime. Medical Branch mirtazapine Yes [id number] 15mg Take 1 Univers 15 mg 5-06 tablet by ity of tablet 00:00: mouth at [place] 00 bedtime. Medical Branch atorvastati 0 Yes [id number] 80mg Take 1 Univers n 80 mg 5-06 tablet by ity of tablet 00:00: mouth at [place] 00 bedtime. Medical Branch mirtazapine 0 Yes [id number] 15mg Take 1 Univers 15 mg 5-06 tablet by ity of tablet 00:00: mouth at [place] 00 bedtime. Medical Branch atorvastati 0 Yes [id number] 80mg Take 1 Univers n 80 mg 5-06 tablet by ity of tablet 00:00: mouth at [place] [address] bedtime. Medical Branch mirtazapine Yes [id number] 15mg Take 1 Univers 15 mg 5-06 tablet by ity of tablet 00:00: mouth at [place] [address] bedtime. Medical Branch atorvastati 0 Yes [id number] 80mg Take 1 Univers n 80 mg 5-06 tablet by ity of tablet 00:00: mouth at [place] [address] bedtime. Medical Branch mirtazapine Yes [id number] 15mg Take 1 Univers 15 mg 5-06 tablet by ity of tablet 00:00: mouth at [place] [address] bedtime. Medical Branch atorvastati 0 Yes [id number] 80mg Take 1 Univers n 80 mg 5-06 tablet by ity of tablet 00:00: mouth at [place] [address] bedtime. Medical Branch mirtazapine 0 Yes [id number] 15mg Take 1 Univers 15 mg 5-06 tablet by ity of tablet 00:00: mouth at [place] [address] bedtime. Medical Branch atorvastati 0 Yes [id number] 80mg Take 1 Univers n 80 mg 5-06 tablet by ity of tablet 00:00: mouth at [place] [address] bedtime. Medical Branch mirtazapine 0 Yes [id number] 15mg Take 1 Univers 15 mg 5-06 tablet by ity of tablet 00:00: mouth at [place] [address] bedtime. Medical Branch atorvastati 0 Yes [id number] 80mg Take 1 Univers n 80 mg 5-06 tablet by ity of tablet 00:00: mouth at [place] 00 bedtime. Medical Branch mirtazapine 2020-0 Yes [id number] 15mg Take 1 Univers 15 mg 5-06 tablet by ity of tablet 00:00: mouth at [place] 00 bedtime. Medical Branch atorvastati 2020-0 Yes [id number] 80mg Take 1 Univers n 80 mg 5-06 tablet by ity of tablet 00:00: mouth at [place] 00 bedtime. Medical Branch mirtazapine 2020-0 Yes [id number] 15mg Take 1 Univers 15 mg 5-06 tablet by ity of tablet 00:00: mouth at [place] 00 bedtime. Medical Branch atorvastati 2020-0 Yes [id number] 80mg Take 1 Univers n 80 mg 5-06 tablet by ity of tablet 00:00: mouth at [place] 00 bedtime. Medical Branch mirtazapine 2020-0 Yes [id number] 15mg Take 1 Univers 15 mg 5-06 tablet by ity of tablet 00:00: mouth at [place] [address] bedtime. Medical Branch atorvastati 0 Yes [id number] 80mg Take 1 Univers n 80 mg 5-06 tablet by ity of tablet 00:00: mouth at [place] [address] bedtime. Medical Branch mirtazapine 0 Yes [id number] 15mg Take 1 Univers 15 mg 5-06 tablet by ity of tablet 00:00: mouth at [place] [address] bedtime. Medical Branch atorvastati 0 Yes [id number] 80mg Take 1 Univers n 80 mg 5-06 tablet by ity of tablet 00:00: mouth at [place] [address] bedtime. Medical Branch mirtazapine 2020-0 Yes [id number] 15mg Take 1 Univers 15 mg 5-06 tablet by ity of tablet 00:00: mouth at [place] [address] bedtime. Medical Branch atorvastati 0 Yes [id number] 80mg Take 1 Univers n 80 mg 5-06 tablet by ity of tablet 00:00: mouth at [place] [address] bedtime. Medical Branch mirtazapine 2020-0 Yes [id number] 15mg Take 1 Univers 15 mg 5-06 tablet by ity of tablet 00:00: mouth at [place] [address] bedtime. Medical Branch atorvastati 2020-0 Yes [id number] 80mg Take 1 Univers n 80 mg 5-06 tablet by ity of tablet 00:00: mouth at [place] 00 bedtime. Medical Branch mirtazapine 2020-0 Yes [id number] 15mg Take 1 Univers 15 mg 5-06 tablet by ity of tablet 00:00: mouth at [place] [address] bedtime. Medical Branch atorvastati 2020-0 Yes [id number] 80mg Take 1 Univers n 80 mg 5-06 tablet by ity of tablet 00:00: mouth at [place] [address] bedtime. Medical Branch mirtazapine 2020-0 Yes [id number] 15mg Take 1 Univers 15 mg 5-06 tablet by ity of tablet 00:00: mouth at [place] 00 bedtime. Medical Branch atorvastati 0 Yes [id number] 80mg Take 1 Univers n 80 mg 5-06 tablet by ity of tablet 00:00: mouth at [place] [address] bedtime. Medical Branch mirtazapine 0 Yes [id number] 15mg Take 1 Univers 15 mg 5-06 tablet by ity of tablet 00:00: mouth at [place] [address] bedtime. Medical Branch atorvastati 0 Yes [id number] 80mg Take 1 Univers n 80 mg 5-06 tablet by ity of tablet 00:00: mouth at [place] [address] bedtime. Medical Branch mirtazapine 0 Yes [id number] 15mg Take 1 Univers 15 mg 5-06 tablet by ity of tablet 00:00: mouth at [place] [address] bedtime. Medical Branch atorvastati 0 Yes [id number] 80mg Take 1 Univers n 80 mg 5-06 tablet by ity of tablet 00:00: mouth at [place] [address] bedtime. Medical Branch mirtazapine 2020-0 Yes [id number] 15mg Take 1 Univers 15 mg 5-06 tablet by ity of tablet 00:00: mouth at [place] [address] bedtime. Medical Branch atorvastati 0 Yes [id number] 80mg Take 1 Univers n 80 mg 5-06 tablet by ity of tablet 00:00: mouth at [place] [address] bedtime. Medical Branch mirtazapine 0 Yes [id number] 15mg Take 1 Univers 15 mg 5-06 tablet by ity of tablet 00:00: mouth at [place] [address] bedtime. Medical Branch mirtazapine 0 Yes [id number] 15mg Take 1 Univers 15 mg 5-06 tablet by ity of tablet 00:00: mouth at [place] [address] bedtime. Medical Branch atorvastati Yes [id number] 80mg Take 1 Univers n 80 mg 5-06 tablet by ity of tablet 00:00: mouth at [place] [address] bedtime. Medical Branch atorvastati Yes [id number] 80mg Take 1 Univers n 80 mg 5-06 tablet by ity of tablet 00:00: mouth at [place] 00 bedtime. Medical Branch mirtazapine Yes [id number] 15mg Take 1 Univers 15 mg 5-06 tablet by ity of tablet 00:00: mouth at [place] 00 bedtime. Medical Branch atorvastati Yes [id number] 80mg Take 1 Univers n 80 mg 5-06 tablet by ity of tablet 00:00: mouth at [place] [address] bedtime. Medical Branch mirtazapine Yes [id number] 15mg Take 1 Univers 15 mg 5-06 tablet by ity of tablet 00:00: mouth at [place] [address] bedtime. Medical Branch atorvastati Yes [id number] 80mg Take 1 Univers n 80 mg 5-06 tablet by ity of tablet 00:00: mouth at [place] [address] bedtime. Medical Branch atorvastati Yes [id number] 80mg Take 1 Univers n 80 mg 5-06 tablet by ity of tablet 00:00: mouth at [place] [address] bedtime. Medical Branch mirtazapine Yes [id number] 15mg Take 1 Univers 15 mg 5-06 tablet by ity of tablet 00:00: mouth at [place] [address] bedtime. Medical Branch atorvastati Yes [id number] 80mg Take 1 [facility] n 80 mg 5-06 tablet by ity of tablet 00:00: mouth at [place] [address] bedtime. Medical [facility] glipiZIDE Yes Type 2 [...] [place] 00 involving bedtime. 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 Medica l [place] [facility] coronary artery of [place] [facility] without angina pectoris mirtazapine 2020- No [id number] 15mg Take 1 [facility] 15 mg 5-06 12-20 tablet by ity of tablet 00:00: 00:00 mouth at [place] 00 :00 bedtime. Medical Branch glipiZIDE 2020- No [id number] 5mg Take 0.5 [facility] 10 mg 5-06 05-12 tablets by ity of tablet 00:00: 00:00 mouth 2 [place] 00 :00 (two) Medical times Branch daily before breakfast and dinner. glipiZIDE 2020- No [id number] 5mg Take 0.5 [facility] 10 mg 5-06 05-12 tablets by ity of tablet 00:00: 00:00 mouth 2 [place] 00 :00 (two) Medical times Branch daily before breakfast and dinner. fluconazole 2020- No [id number] 150mg Take 1 [facility] 150 mg 4-14 04-17 tablet by ity of tablet 00:00: 04:59 mouth [place] 00 :00 every 72 Medical (seventy-t Branch wo) hours for 2 days. fluconazole 2020- No [id number] 150mg Take 1 [facility] 150 mg 4-14 -17 tablet by ity of tablet 00:00: 04:59 mouth [place] 00 :00 every 72 Medical (seventy-t Branch wo) hours for 2 days. fluconazole 2020- No [id number] 150mg Take 1 [facility] 150 mg 4-14 [...] Until Discontinu ed, Routine ezetimibe 2020- No [id number] 10mg Take 1 [facility] 10 mg -08 10-14 tablet by ity of tablet 00:00: 04:59 mouth [place] 00 :00 daily for Medical 30 days. Branch insulin NPH 2020- No [id number] 60U inject 60 Univers and regular 4-13 05-14 Units ity of human 70-30 00:00: 04:59 under the [place] (NOVOLIN 00 :00 skin 2 Medical 70/30 U-100 (two) Branch INSULIN) times 100 unit/mL daily (70-30) before injection breakfast and dinner for 30 days. ezetimibe 2020- No [id number] 10mg Take 1 Univers 10 mg -13 -14 tablet by ity of tablet 00:00: 04:59 mouth [place] 00 :00 daily for Medical 30 days. Branch insulin NPH 2020- No [id number] 60U inject 60 Univers and regular 4-13 05-14 Units ity of human 70-30 00:00: 04:59 under the [place] (NOVOLIN 00 :00 skin 2 Medical 70/30 U-100 (two) Branch INSULIN) times 100 unit/mL daily (70-30) before injection breakfast and dinner for 30 days. ezetimibe 2020- No [id number] 10mg Take 1 Univers 10 mg 4-13 05-14 tablet by ity of tablet 00:00: 04:59 mouth [place] 00 :00 daily for Medical 30 days. Branch insulin NPH 2020- No [id number] 60U inject 60 Univers and regular 4-13 05-14 Units ity of human 70-30 00:00: 04:59 under the [place] (NOVOLIN 00 :00 skin 2 Medical 70/30 U-100 (two) Branch INSULIN) times 100 unit/mL daily (70-30) before injection breakfast and dinner for 30 days. ezetimibe 2020- No [id number] 10mg Take 1 [facility] 10 mg 4-13 05-14 tablet by ity of tablet 00:00: 04:59 mouth [place] 00 :00 daily for Medical 30 days. Branch insulin NPH 2020- No [id number] 60U inject 60 [facility] and regular 4-13 05-14 Units ity of human 70-30 00:00: 04:59 under the [place] (NOVOLIN 00 :00 skin 2 Medical 70/30 U-100 (two) Branch INSULIN) times 100 unit/mL daily (70-30) before injection breakfast and dinner for 30 days. ezetimibe 2020- No [id number] 10mg Take 1 [facility] 10 mg 4-13 05-14 tablet by ity of tablet 00:00: 04:59 mouth [place] 00 :00 daily for Medical 30 days. Branch insulin NPH 2020- No [id number] 60U inject 60 Univers and regular 4-13 05-14 Units ity of human 70-30 00:00: 04:59 under the [place] (NOVOLIN 00 :00 skin 2 Medical 70/30 U-100 (two) Branch INSULIN) times 100 unit/mL daily (70-30) before injection breakfast and dinner for 30 days. ezetimibe 2020- No [id number] 10mg Take 1 [facility] 10 mg 4-13 05-14 tablet by ity of tablet 00:00: 04:59 mouth [place] 00 :00 daily for Medical 30 days. Branch insulin NPH 2020- No [id number] 60U inject 60 [facility] and regular 4-13 05-14 Units ity of human 70-30 00:00: 04:59 under the [place] (NOVOLIN 00 :00 skin 2 Medical 70/30 U-100 (two) Branch INSULIN) times 100 unit/mL daily (70-30) before injection breakfast and dinner for 30 days. ezetimibe 2020-2020- No [id number] 10mg Take 1 [facility] 10 mg 4-13 05-14 tablet by ity of tablet 00:00: 04:59 mouth [place] 00 :00 daily for Medical 30 days. Branch insulin NPH 2020- No [id number] 60U inject 60 [facility] and regular 4-13 05-14 Units ity of human 70-30 00:00: 04:59 under the [place] (NOVOLIN 00 :00 skin 2 Medical 70/30 U-100 (two) Branch INSULIN) times 100 unit/mL daily (70-30) before injection breakfast and dinner for 30 days. ezetimibe 2020- No [id number] 10mg Take 1 [facility] 10 mg 4-13 05-14 tablet by ity of tablet 00:00: 04:59 mouth [place] 00 :00 daily for Medical 30 days. Branch ezetimibe 2020- No [id number] 10mg Take 1 [facility] 10 mg 4-13 [...] for 30 days. insulin NPH 2020- No [id number] 60U inject 60 [facility] and regular 4-13 05-12 Units ity of human 70-30 00:00: 00:00 under the [place] (NOVOLIN 00 :00 skin 2 Medical 70/30 U-100 (two) Branch INSULIN) times 100 unit/mL daily (70-30) before injection breakfast and dinner for 30 days. insulin NPH 2020- No [id number] 60U inject 60 [facility] and regular 4-13 [...] of tablet 23:21: mouth [place] 25 daily. [facility] Branch aspirin 81 2020-0 [...] Medical Branch insulin NPH 2020-0 2020- No [id number] 90U inject 90 Univers and regular 4-12 05-13 Units ity of human 70-30 00:00: 04:59 under the [place] (NOVOLIN 00 :00 skin 2 Medical 70/30 U-100 (two) Branch INSULIN) times 100 unit/mL daily (70-30) before injection breakfast and dinner for 30 days. metoprolol 2020- No [id number] 50mg Take 0.5 [facility] succinate 4-12 05-13 tablets by ity of XL 100 mg 00:00: 04:59 mouth [place] 24 hr 00 :00 daily for Medical tablet 30 days. Branch glipiZIDE No [id number] 10mg Take 1 [facility] 10 mg 4-12 05-13 tablet by ity of tablet 00:00: 04:59 mouth 2 [place] 00 :00 (two) Medical times Branch daily before breakfast and dinner for 30 days. SITagliptin No [id number] 100mg Take 1 [facility] 100 mg 4-12 05-13 tablet by ity of tablet 00:00: 04:59 mouth [place] 00 :00 evening Medical meal for Branch 30 days. insulin NPH 2020- No [id number] 90U inject 90 [facility] and regular 4-12 05-13 Units ity of human 70-30 00:00: 04:59 under the [place] (NOVOLIN 00 :00 skin 2 Medical 70/30 U-100 (two) Branch INSULIN) times 100 unit/mL daily (70-30) before injection breakfast and dinner for 30 days. metoprolol No [id number] 50mg Take 0.5 [facility] succinate 4-12 05-13 tablets by ity of XL 100 mg 00:00: 04:59 mouth [place] 24 hr 00 :00 daily for Medical tablet 30 days. Branch glipiZIDE No [id number] 10mg Take 1 [facility] 10 mg 4-12 05-13 tablet by ity of tablet 00:00: 04:59 mouth 2 [place] 00 :00 (two) Medical times [place] daily before breakfast and dinner for 30 days. SITagliptin No [id number] 100mg Take 1 [facility] 100 mg 4-12 05-13 tablet by ity of tablet 00:00: 04:59 mouth [place] 00 :00 evening Medical meal for Branch 30 days. insulin NPH No [id number] 90U inject 90 Univers and regular 4-12 05-13 Units ity of human 70-30 00:00: 04:59 under the [place] (NOVOLIN 00 :00 skin 2 Medical 70/30 U-100 (two) Branch INSULIN) times 100 unit/mL daily (70-30) before injection breakfast and dinner for 30 days. metoprolol 2020- No [id number] 50mg Take 0.5 [facility] succinate 4-12 05-13 tablets by ity of XL 100 mg 00:00: 04:59 mouth [place] 24 hr 00 :00 daily for Medical tablet 30 days. Branch glipiZIDE 2020- No [id number] 10mg Take 1 [facility] 10 mg 4-12 05-13 tablet by ity of tablet 00:00: 04:59 mouth 2 [place] 00 :00 (two) Medical times Branch daily before breakfast and dinner for 30 days. SITagliptin 2020- No [id number] 100mg Take 1 [facility] 100 mg 4-12 05-13 tablet by ity of tablet 00:00: 04:59 mouth [place] 00 :00 evening Medical meal for Branch 30 days. insulin NPH 2020- No [id number] 90U inject 90 [facility] and regular 4-12 05-13 Units ity of human 70-30 00:00: 04:59 under the [place] (NOVOLIN 00 :00 skin 2 Medical 70/30 U-100 (two) Branch INSULIN) times 100 unit/mL daily (70-30) before injection breakfast and dinner for 30 days. metoprolol 2020- No [id number] 50mg Take 0.5 [facility] succinate 4-12 05-13 tablets by ity of XL 100 mg 00:00: 04:59 mouth [place] 24 hr 00 :00 daily for Medical tablet 30 days. Branch glipiZIDE 2020- No [id number] 10mg Take 1 [facility] 10 mg 4-12 05-13 tablet by ity of tablet 00:00: 04:59 mouth 2 [place] 00 :00 (two) Medical times Branch daily before breakfast and dinner for 30 days. SITagliptin 2020- No [id number] 100mg Take 1 [facility] 100 mg 4-12 05-13 tablet by ity of tablet 00:00: 04:59 mouth [place] 00 :00 evening Medical meal for Branch 30 days. insulin NPH 2020- No [id number] 90U inject 90 Univers and regular 4-12 05-13 Units ity of human 70-30 00:00: 04:59 under the [place] (NOVOLIN 00 :00 skin 2 Medical 70/30 U-100 (two) Branch INSULIN) times 100 unit/mL daily (70-30) before injection breakfast and dinner for 30 days. metoprolol 2020- No [id number] 50mg Take 0.5 [facility] succinate 4- 05-13 tablets by ity of XL 100 mg 00:00: 04:59 mouth [place] 24 hr 00 :00 daily for Medical tablet 30 days. [place] glipiZIDE 2020- No [id number] 10mg Take 1 Univers 10 mg - 05-13 tablet by ity of tablet 00:00: 04:59 mouth 2 [place] 00 :00 (two) Medical times [place] daily before breakfast and dinner for 30 days. SITagliptin 2020- No [id number] 100mg Take 1 [facility] 100 mg 4- 05-13 tablet by ity of tablet 00:00: 04:59 mouth [place] 00 :00 evening Medical meal for [place] 30 days. metoprolol No [id number] 50mg Take 0.5 [facility] succinate 4- 05-13 tablets by ity of XL 100 mg 00:00: 04:59 mouth [place] 24 hr 00 :00 daily for Medical tablet 30 days. [place] SITagliptin 2020- No [id number] 100mg Take 1 [facility] 100 mg 4- 05-13 tablet by ity of tablet 00:00: 04:59 mouth [place] 00 :00 evening Medical meal for Branch 30 days. metoprolol 2020- No [id number] 50mg Take 0.5 [facility] succinate 4-12 05-13 tablets by ity of XL 100 mg 00:00: 04:59 mouth [place] 24 hr 00 :00 daily for Medical tablet 30 days. [place] SITagliptin 2020- No [id number] 100mg Take 1 [facility] 100 mg 4-12 05-13 tablet by ity of tablet 00:00: 04:59 mouth [place] 00 :00 evening Medical meal for Branch 30 days. metoprolol 2020- No [id number] 50mg Take 0.5 [facility] succinate 4- 05-13 tablets by ity of XL 100 mg 00:00: 04:59 mouth [place] 24 hr 00 :00 daily for Medical tablet 30 days. Branch metoprolol 2020- No [id number] 50mg Take 0.5 [facility] succinate 4- 05-13 [...] :00 involving daily for Medi [place] tablet [place] 30 days. 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 Branch coronary artery of [place] heart without angina pectoris SITagliptin 2020- No Uncontrolle 100mg Take 1 [facility] 100 mg 4- 05-13 d type 2 tablet by ity of tablet 00:00: 04:59 diabetes mouth with [place] 00 :00 mellitus evening Medical with meal for Branch hyperglycem 30 days. [place] SITagliptin 2020- No [id number] 100mg Take 1 [facility] 100 mg 4-12 05-12 tablet by ity of tablet 00:00: 00:00 mouth [place] 00 :00 evening Medical meal for Branch 30 days. SITagliptin 2020- No [id number] 100mg Take 1 [facility] 100 mg 4-12 05-12 tablet by ity of tablet 00:00: 00:00 mouth [place] 00 :00 evening Medical meal for Branch 30 days. insulin NPH 2020- No [id number] 90U inject 90 Univers and regular 4-12 05-06 Units ity of human 70-30 00:00: 00:00 under the [place] (NOVOLIN 00 :00 skin 2 Medical 70/30 U-100 (two) Branch INSULIN) times 100 unit/mL daily (70-30) before injection breakfast and dinner for 30 days. glipiZIDE 2020- No [id number] 10mg Take 1 [facility] 10 mg 4-12 05-06 tablet by ity of tablet 00:00: 00:00 mouth 2 [place] 00 :00 (two) Medical times Branch daily before breakfast and dinner for 30 days. insulin NPH 2020- No [id number] 90U inject 90 Univers and regular 4-12 05-06 Units ity of human 70-30 00:00: 00:00 under the [place] (NOVOLIN 00 :00 skin 2 Medical 70/30 U-100 (two) Branch INSULIN) times 100 unit/mL daily (70-30) before injection breakfast and dinner for 30 days. glipiZIDE 2020- No [id number] 10mg Take 1 [facility] 10 mg 4- [...] dinner for 30 days. lactobacill 2020- No [id number] 1{tbl} Take 1 [facility] us 09-07-23 tablet by ity of acidophilus 00:00: 04:59 mouth 2 [place] 25 million 00 :00 (two) Medical cell -100 times Branch mg captab daily for 10 days. lactobacill 2020- No [id number] 1{tbl} Take 1 [facility] us 09-0723 tablet by ity of acidophilus 00:00: 04:59 mouth 2 [place] 25 million 00 :00 (two) Medical cell -100 times Branch mg captab daily for 10 days. lactobacill 2020- No [id number] 1{tbl} Take 1 [facility] us 09-0723 tablet by ity of acidophilus 00:00: 04:59 mouth 2 [place] 25 million 00 :00 (two) Medical cell -100 times Branch mg captab daily for 10 days. metroNIDAZO 2020- No [id number] 500mg Take 1 Univers LE 500 mg 09-07 tablet by ity of tablet 00:00: 04:59 mouth 2 [place] 00 :00 (two) Medical times Branch daily for 6 days. ciprofloxac 2020- No [id number] 750mg Take 1 Univers in HCl 750 09-07 tablet by ity of mg tablet 00:00: 04:59 mouth [place] 00 :00 every 12 Medical (twelve) Branch hours for 6 days. metroNIDAZO 2020- No [id number] 500mg Take 1 Univers LE 500 mg 09-07 tablet by ity of tablet 00:00: 04:59 mouth 2 [place] 00 :00 (two) Medical times Branch daily for 6 days. ciprofloxac 2020- No [id number] 750mg Take 1 Univers in HCl 750 09-07 tablet by ity of mg tablet 00:00: 04:59 mouth [place] 00 :00 every 12 Medical (twelve) Branch hours for 6 days. metroNIDAZO 2020- No [id number] 500mg Take 1 [facility] LE 500 mg 09-07 tablet by ity of tablet 00:00: 04:59 mouth 2 [place] 00 :00 (two) Medical times [place] daily for 6 days. ciprofloxac 2020- No [id number] 750mg Take 1 Univers in HCl 750 09-07 tablet by ity of mg tablet 00:00: 04:59 mouth [place] 00 :00 every 12 Medical (twelve) Branch hours for 6 days. cosyntropin 2020- No 250ug 250 mcg, Univers (CORTROSYN) 09-06 Slow IV ity of injection 22:45: 22:06 Push, [place] 250 mcg 00 :00 ONCE, 1 Medical dose, [facility] 09/06/20 at 1745, Routine metoprolol Yes 50mg 50 mg, Unive rs succinate 09-06 Oral, ity of XL (TOPROL 14:00: DAILY, [place] XL) tablet 00 First dose Med ical 50 mg (after Branch last modificati on) on [place] 09/06/20 at 0900, Until Discontinu ed, Routine ezetimibe Yes 10mg 10 mg, Univer s (ZETIA) 09-06 Oral, ity of tablet 10 14:00: DAILY, [place] mg 00 First dose Medical on [facility] 09/06/20 at 0900, Until Discontinu ed, Routine fluconazole Yes 150mg 150 mg, Un cali (DIFLUCAN) 09-06 Oral, ity of tablet 150 14:00: Q72H, [place] mg 00 First dose Medical on [facility] 09/06/20 at 0900, Until Discontinu ed, TRANG
[...] [facility] [place] (8 %) IV 09/05/20 at [facility] h Piggyback 4 2014, g Routine [...] MINI-BAG First dose (after last reorder) on [facility] 09/05/20 at 1100, Last dose on Mon09/11/20 at 2300, 50 mL
Reas on for Anti-Infec tive: Documented Infection< br>Documen anthony Infection Site: Urine
D uration of Therapy: Other (see Comments) enoxaparin Yes 40mg 40 mg, Unive rs (LOVENOX) 4-10 Subcutaneo ity of injection 14:00: us, DAILY, [place] 40 mg 00 First dose Medical on [facility] Branch 09/05/20 at 0900, Until Discontinu ed, Routine pantoprazol Yes 40mg 40 mg, Univ ers e 4-10 Oral, ity of (PROTONIX) 14:00: DAILY, [place] EC tablet 00 First dose Medi bl[place] 40 mg on [facility] Branch 09/05/20 at 0900, Until Discontinu ed, Routine clopidogreL Yes 75mg 75 mg, Univ ers (PLAVIX) 4-10 Oral, ity of tablet 75 14:00: DAILY, [place] mg 00 First dose Medical on [facility] Branch 09/05/20 at 0900, Until Discontinu ed, Routine metoprolol 2020- No 100mg 100 mg, Un cali succinate 09-05 Oral, ity of XL (TOPROL 14:00: 11:17 DAILY, [place] XL) tablet 00 :33 First dose Med ical 100 mg on [facility] Branch 09/05/20 at 0900, Until Discontinu ed, Routine isosorbide No 30mg 30 mg, Univ ers mononitrate 09-05- Oral, ity of (IMDUR) 24 14:00: 15:58 DAILY, [place] hr tablet 00 :51 First dose Medi [place] 30 mg on [facility] Branch 09/05/20 at 0900, Until Discontinu ed, Routine furosemide No 20mg 20 mg, Univ ers (LASIX) 4 04-10 Oral, ity of tablet 20 14:00: 22:14 DAILY, [place] mg 00 :49 First dose Medical on [facility] 09/05/20 at 0900, Until Discontinu ed, Routine docusate Yes 100mg 100 mg, Unive rs (COLACE) 4-10 Oral, BID, ity o f capsule 100 13:00: First dose [place] mg 00 on [facility] Medical 09/05/20 at Branch 0800, Until Discontinu ed, Routine metFORMIN Yes 1000mg 1,000 mg, U nivers (GLUCOPHAGE 4-10 Oral, BID ity of ) tablet 13:00: MEALS, [place] 1,000 mg 00 First dose Medic al on [facility] Branch 09/05/20 at 0800, Until Discontinu ed, Routine glipiZIDE Yes 10mg 10 mg, Univer s (GLUCOTROL) 4-10 Oral, ity of tablet 10 12:30: BIDAC, [place] mg 00 First dose Medical on [facility] 09/05/20 at 0730, Until Discontinu ed, Routine insulin NPH No 90U 90 Units, Univers and regular 09-0512 Subcutaneo i ty of human 70-30 12:30: 21:48 us, BIDAC, [place] (HUMULIN 00 :25 First dose Medic al 70-30 U-100 (after Branch INSULIN) last 100 unit/mL modificati (70-30) on) on [facility] injection 09/05/20 at 90 Units 0730, [...] Routine, Pain (scale 4-6) Sliding Yes Subcutaneo [facility] ers Scale 4-10 us, TID ity of Insulin - 09:30: MEALS+HS, [place] as Lispro 00 First dose Medical (HumaLOG) + on Sat Branch [facility] 09/05/20 at Testing 0430, Until Discontinu ed, Routine gabapentin 0 Yes 800mg 800 mg, Uni vers (NEURONTIN) 4-10 Oral, TID, it y of tablet 800 09:30: First dose [place] mg 00 on [facility] Medical 09/05/20 at Branch 0430, Until Discontinu ed, Routine atorvastati Yes 80mg 80 mg, Univ ers n (LIPITOR) 4-10 Oral, QHS, it y of tablet 80 09:30: First dose [place] mg 00 on [facility] Medical 09/05/20 at Branch 0430, Until Discontinu ed, Routine aspirin Yes 81mg 81 mg, Univers chewable 4-10 Oral, QAM ity of tablet 81 09:30: WITH [place] mg 00 BREAKFAST, Medical First dose Branch on 09/05/20 at 0430, Until Discontinu ed, Routine lactobacill Yes 1{tbl} 1 tablet, Univers us 4-10 Oral, BID, ity of acidophilus 09:30: First dose [place] (ACIDOPHILL 00 on Sat Medica l US) [...] mEq 00 :22 First dose Medical on [facility] Branch 09/05/20 at 0430, Until Discontinu ed, Routine ondansetron Yes 4mg 4 mg, Slow Univers (ZOFRAN 4-10 IV Push, ity of (PF)) 09:29: Q6HPRN, [place] injection 4 42 Starting Medi blanquita mg [facility] 09/05/20 at 0429, Until Discontinu ed, Routine, Nausea and Vomiting (N/V) glucagon Yes 1mg 1 mg, Univers (GLUCAGEN 4-10 Intramuscu ity of DIAGNOSTIC 09:28: [place], PRN, [place] KIT) 38 Starting Medical injection 1 [facility] 09/05/20 at 0428, Until Discontinu ed, TRANG, [...] of 1,000 mg in 05:15: 04:49 Piggyback, [place] NaCl 0.9% 00 :00 ONCE, 1 [...] 18 Units at 2330, Routine atorvastati Yes [id number] 80mg Take 1 Univers n 80 mg 3-10 tablet by ity of tablet 00:00: mouth at [place] [address] bedtime. Medical Branch atorvastati Yes [id number] 80mg Take 1 Univers n 80 mg 3-10 tablet by ity of tablet 00:00: mouth at [place] [address] bedtime. Medical Branch atorvastati Yes [id number] 80mg Take 1 Univers n 80 mg 3-10 tablet by ity of tablet 00:00: mouth at [place] [address] bedtime. Medical Branch atorvastati Yes [id number] 80mg Take 1 Univers n 80 mg 3-10 tablet by ity of tablet 00:00: mouth at [place] [address] bedtime. Medical Branch atorvastati Yes [id number] 80mg Take 1 Univers n 80 mg 3-10 tablet by ity of tablet 00:00: mouth at [place] [address] bedtime. Medical Branch atorvastati 2020- No [id number] 80mg Take 1 Univers n 80 mg [...] DAILY WITH Branch MEALS isosorbide 2021-0 Yes [id number] 30mg Take 1 [facility] mononitrate 1-11 tablet by ity of 30 mg 24 hr 00:00: mouth [place] tablet 00 daily. Medical Branch metoprolol 1-0 Yes [id number] 100mg Take 1 [facility] succinate 1-11 tablet by ity o f XL 100 mg 00:00: mouth [place] 24 hr 00 daily. Medical tablet Branch pantoprazol Yes [id number] 40mg Take 1 Univers e 40 mg EC 1-11 tablet by ity of tablet 00:00: mouth [place] 00 daily. Medical Branch isosorbide 0 Yes [id number] 30mg Take 1 [facility] mononitrate 1-11 tablet by ity of 30 mg 24 hr 00:00: mouth [place] tablet 00 daily. Medical Branch metoprolol Yes [id number] 100mg Take 1 [facility] succinate 1-11 tablet by ity o f XL 100 mg 00:00: mouth [place] 24 hr 00 daily. Medical tablet Branch pantoprazol Yes [id number] 40mg Take 1 Univers e 40 mg EC 1-11 tablet by ity of tablet 00:00: mouth [place] 00 daily. Medical Branch isosorbide Yes [id number] 30mg Take 1 [facility] mononitrate 1-11 tablet by ity of 30 mg 24 hr 00:00: mouth [place] tablet 00 daily. Medical Branch metoprolol Yes [id number] 100mg Take 1 [facility] succinate 1-11 tablet by ity o f XL 100 mg 00:00: mouth [place] 24 hr 00 daily. Medical tablet Branch pantoprazol Yes [id number] 40mg Take 1 Univers e 40 mg EC 1-11 tablet by ity of tablet 00:00: mouth [place] 00 daily. Medical Branch isosorbide Yes [id number] 30mg Take 1 [facility] mononitrate 1-11 tablet by ity of 30 mg 24 hr 00:00: mouth [place] tablet 00 daily. Medical Branch metoprolol Yes [id number] 100mg Take 1 [facility] succinate 1-11 tablet by ity o f XL 100 mg 00:00: mouth [place] 24 hr 00 daily. Medical tablet Branch pantoprazol Yes [id number] 40mg Take 1 Univers e 40 mg EC 1-11 tablet by ity of tablet 00:00: mouth [place] 00 daily. Medical Branch isosorbide Yes [id number] 30mg Take 1 [facility] mononitrate 1-11 tablet by ity of 30 mg 24 hr 00:00: mouth [place] tablet 00 daily. Medical Branch metoprolol Yes [id number] 100mg Take 1 [facility] succinate 1-11 tablet by ity o f XL 100 mg 00:00: mouth [place] 24 hr 00 daily. Medical tablet Branch pantoprazol Yes [id number] 40mg Take 1 Univers e 40 mg EC 1-11 tablet by ity of tablet 00:00: mouth [place] 00 daily. Medical Branch isosorbide Yes [id number] 30mg Take 1 [facility] mononitrate 1-11 tablet by ity of 30 mg 24 hr 00:00: mouth [place] tablet 00 daily. Medical Branch metoprolol Yes [id number] 100mg Take 1 [facility] succinate 1-11 tablet by ity o f XL 100 mg 00:00: mouth [place] 24 hr 00 daily. Medical tablet Branch pantoprazol Yes [id number] 40mg Take 1 Univers e 40 mg EC 1-11 tablet by ity of tablet 00:00: mouth [place] 00 daily. Medical Branch isosorbide Yes [id number] 30mg Take 1 [facility] mononitrate 1-11 tablet by ity of 30 mg 24 hr 00:00: mouth [place] tablet 00 daily. Medical Branch metoprolol Yes [id number] 100mg Take 1 [facility] succinate 1-11 tablet by ity o f XL 100 mg 00:00: mouth [place] 24 hr 00 daily. Medical tablet Branch pantoprazol Yes [id number] 40mg Take 1 Univers e 40 mg EC 1-11 tablet by ity of tablet 00:00: mouth [place] 00 daily. Medical Branch isosorbide Yes [id number] 30mg Take 1 [facility] mononitrate 1-11 tablet by ity of 30 mg 24 hr 00:00: mouth [place] tablet 00 daily. Medical Branch metoprolol Yes [id number] 100mg Take 1 [facility] succinate 1-11 tablet by ity o f XL 100 mg 00:00: mouth [place] 24 hr 00 daily. Medical tablet Branch pantoprazol Yes [id number] 40mg Take 1 Univers e 40 mg EC 1-11 tablet by ity of tablet 00:00: mouth [place] 00 daily. Medical Branch isosorbide Yes [id number] 30mg Take 1 [facility] mononitrate 1-11 tablet by ity of 30 mg 24 hr 00:00: mouth [place] tablet 00 daily. Medical Branch metoprolol 0 Yes [id number] 100mg Take 1 [facility] succinate 1-11 tablet by ity o f XL 100 mg 00:00: mouth [place] 24 hr 00 daily. Medical tablet Branch pantoprazol Yes [id number] 40mg Take 1 Univers e 40 mg EC 1-11 tablet by ity of tablet 00:00: mouth [place] 00 daily. Medical Branch isosorbide 2020-0 Yes [id number] 30mg Take 1 [facility] mononitrate 1-11 tablet by ity of 30 mg 24 hr 00:00: mouth [place] tablet 00 daily. Medical Branch metoprolol Yes [id number] 100mg Take 1 [facility] succinate 1-11 tablet by ity o f XL 100 mg 00:00: mouth [place] 24 hr 00 daily. Medical tablet Branch pantoprazol Yes [id number] 40mg Take 1 Univers e 40 mg EC 1-11 tablet by ity of tablet 00:00: mouth [place] 00 daily. Medical Branch isosorbide 2020-0 Yes [id number] 30mg Take 1 [facility] mononitrate 1-11 tablet by ity of 30 mg 24 hr 00:00: mouth [place] tablet 00 daily. Medical Branch metoprolol Yes [id number] 100mg Take 1 [facility] succinate 1-11 tablet by ity o f XL 100 mg 00:00: mouth [place] 24 hr 00 daily. Medical tablet Branch pantoprazol Yes [id number] 40mg Take 1 Univers e 40 mg EC 1-11 tablet by ity of tablet 00:00: mouth [place] 00 daily. Medical Branch pantoprazol 0 Yes [id number] 40mg Take 1 Univers e 40 mg EC 1-11 tablet by ity of tablet 00:00: mouth [place] 00 daily. Medical Branch pantoprazol 0 Yes [id number] 40mg Take 1 Univers e 40 mg EC 1-11 tablet by ity of tablet 00:00: mouth [place] 00 daily. Medical Branch pantoprazol Yes [id number] 40mg Take 1 Univers e 40 mg EC 1-11 tablet by ity of tablet 00:00: mouth [place] 00 daily. Medical Branch pantoprazol Yes [id number] 40mg Take 1 Univers e 40 mg EC 1-11 tablet by ity of tablet 00:00: mouth [place] 00 daily. Medical Branch pantoprazol Yes [id number] 40mg Take 1 Univers e 40 mg EC 1-11 tablet by ity of tablet 00:00: mouth [place] 00 daily. Medical Branch pantoprazol Yes [id number] 40mg Take 1 Univers e 40 mg EC 1-11 tablet by ity of tablet 00:00: mouth [place] 00 daily. Medical Branch pantoprazol Yes [id number] 40mg Take 1 Univers e 40 mg EC 1-11 tablet by ity of tablet 00:00: mouth [place] 00 daily. Medical Branch pantoprazol Yes [id number] 40mg Take 1 Univers e 40 mg EC 1-11 tablet by ity of tablet 00:00: mouth [place] 00 daily. Medical Branch pantoprazol Yes [id number] 40mg Take 1 Univers e 40 mg EC 1-11 tablet by ity of tablet 00:00: mouth [place] 00 daily. Medical Branch pantoprazol Yes [id number] 40mg Take 1 Univers e 40 mg EC 1-11 tablet by ity of tablet 00:00: mouth [place] 00 daily. Medical Branch pantoprazol Yes [id number] 40mg Take 1 Univers e 40 mg EC 1-11 tablet by ity of tablet 00:00: mouth [place] 00 daily. Medical Branch pantoprazol Yes [id number] 40mg Take 1 Univers e 40 mg EC 1-11 tablet by ity of tablet 00:00: mouth [place] 00 daily. Medical Branch pantoprazol Yes [id number] 40mg Take 1 Univers e 40 mg EC 1-11 tablet by ity of tablet 00:00: mouth [place] 00 daily. Medical Branch pantoprazol Yes [id number] 40mg Take 1 Univers e 40 mg EC 1-11 tablet by ity of tablet 00:00: mouth [place] 00 daily. Medical Branch pantoprazol Yes [id number] 40mg Take 1 Univers e 40 mg EC 1-11 tablet by ity of tablet 00:00: mouth [place] 00 daily. Medical Branch pantoprazol Yes [id number] 40mg Take 1 Univers e 40 mg EC 1-11 tablet by ity of tablet 00:00: mouth [place] 00 daily. Medical Branch pantoprazol Yes [id number] 40mg Take 1 Univers e 40 mg EC 1-11 tablet by ity of tablet 00:00: mouth [place] 00 daily. Medical Branch pantoprazol Yes [id number] 40mg Take 1 [facility] e 40 mg EC 1-11 tablet by [facility] tablet 00:00: mouth [place] 00 daily. [facility] pantoprazol Yes [id number] 40mg Take 1 [facility] e 40 mg EC 1-11 tablet by [facility] of tablet 00:00: mouth [place] 00 daily. [facility] pantoprazol Yes [id number] 40mg Take 1 [facility] e 40 mg EC 1-11 tablet by [facility] of tablet 00:00: mouth [place] 00 daily. [facility] pantoprazol Yes [id number] 40mg Take 1 [facility] e 40 mg EC 1-11 tablet by [facility] of tablet 00:00: mouth [place] 00 daily. [facility] pantoprazol Yes [id number] 40mg Take 1 [facility] e 40 mg EC 1-11 tablet by [facility] of tablet 00:00: mouth [place] 00 daily. [facility] pantoprazol Yes [id number] 40mg Take 1 [facility] e 40 mg EC 1-11 tablet by [facility] of tablet 00:00: mouth [place] 00 daily. [facility] pantoprazol Yes [id number] 40mg Take 1 [facility] e 40 mg EC 1-11 tablet by [facility] of tablet 00:00: mouth [place] 00 daily. [facility] pantoprazol Yes [id number] 40mg Take 1 [facility] e 40 mg EC 1-11 tablet by [facility] of tablet 00:00: mouth [place] 00 daily. [facility] pantoprazol Yes [id number] 40mg Take 1 [facility] e 40 mg EC 1-11 tablet by [facility] of tablet 00:00: mouth [place] 00 daily. [facility] pantoprazol Yes [id number] 40mg Take 1 [facility] e 40 mg EC 1-11 tablet by [facility] of tablet 00:00: mouth [place] 00 daily. [facility] pantoprazol Yes [id number] 40mg Take 1 [facility] e 40 mg EC 1-11 tablet by [facility] of tablet 00:00: mouth [place] 00 daily. [facility] pantoprazol Yes [id number] 40mg Take 1 [facility] e 40 mg EC 1-11 tablet by [facility] of tablet 00:00: mouth [place] 00 daily. [facility] pantoprazol Yes [id number] 40mg Take 1 [facility] e 40 mg EC 1-11 tablet by [facility] of tablet 00:00: mouth [place] 00 daily. [facility] pantoprazol Yes [id number] 40mg Take 1 [facility] e 40 mg EC 1-11 tablet by [facility] of tablet 00:00: mouth [place] 00 daily. [facility] pantoprazol Yes [id number] 40mg Take 1 [facility] e 40 mg [...] disease daily. Medical [facility] isosorbide 2020- No [id number] 30mg Take 1 [facility] mononitrate 06-08-12 tablet by it y of 30 mg 24 hr 00:00: 00:[place] 00 :00 daily. [facility] metoprolol 2020- No [id number] 100mg Take 1 [facility] succinate -04 01-12 tablet by [facility] of XL 100 mg 00:00: 00:00 mouth [place] 24 hr 00 :00 daily. Medical tablet Branch methocarbam Yes [id number] 500mg Take 1 [facility] oL 500 mg 1-08 tablet by ity o f tablet 00:00: mouth 4 [place] 00 (four) Medical times Branch daily as needed (muscle spasm). isosorbide Yes [id number] 30mg Take 1 [facility] mononitrate 1-08 tablet by [facility] of 30 mg 24 hr 00:00: mouth [place] tablet 00 daily. Medical [facility] potassium Yes [id number] 10meq Take 1 [facility] n[facility] chloride 10 1-08 tablet by [facility] of mEq CR 00:00: mouth [place] tablet 00 daily. Medical [facility] methocarbam 2021-0 Yes [id number] 500mg Take 1 [facility] oL 500 mg 1-08 tablet by [facility] o f tablet 00:00: mouth 4 [place] 00 (four) Medical times Branch daily as needed (muscle spasm). potassium 2020-0 Yes [id number] 10meq Take 1 [facility] chloride 10 1-08 tablet by [facility] of mEq CR 00:00: mouth [place] tablet 00 daily. Medical [facility] methocarbam Yes [id number] 500mg Take 1 [facility] oL 500 mg 1-08 tablet by ity o f tablet 00:00: mouth 4 [place] 00 (four) Medical times Branch daily as needed (muscle spasm). potassium 2020-0 Yes [id number] 10meq Take 1 [facility] chloride 10 1-08 tablet by [facility] of mEq CR 00:00: mouth [place] tablet 00 daily. Medical Branch methocarbam Yes [id number] 500mg Take 1 [facility] oL 500 mg 1-08 tablet by ity o f tablet 00:00: mouth 4 [place] 00 (four) Medical times Branch daily as needed (muscle spasm). potassium Yes [id number] 10meq Take 1 [facility] chloride 10 1-08 tablet by ity of mEq CR 00:00: mouth [place] tablet 00 daily. Medical Branch methocarbam Yes [id number] 500mg Take 1 [facility] oL 500 mg 1-08 tablet by ity o f tablet 00:00: mouth 4 [place] 00 (four) Medical times Branch daily as needed (muscle spasm). potassium 0 Yes [id number] 10meq Take 1 [facility] chloride 10 1-08 tablet by [facility] of mEq CR 00:00: mouth [place] tablet 00 daily. Medical [facility] methocarbam Yes [id number] 500mg Take 1 [facility] oL 500 mg 1-08 tablet by ity o f tablet 00:00: mouth 4 [place] 00 (four) Medical times Branch daily as needed (muscle spasm). potassium 0 Yes [id number] 10meq Take 1 [facility] chloride 10 1-08 tablet by [facility] of mEq CR 00:00: mouth [place] tablet 00 daily. Medical [facility] methocarbam Yes [id number] 500mg Take 1 [facility] oL 500 mg 1-08 tablet by it[facility] o f tablet 00:00: mouth 4 [place] 00 (four) Medical times Branch daily as needed (muscle spasm). potassium Yes [id number] 10meq Take 1 [facility] chloride 10 1-08 tablet by ity of mEq CR 00:00: mouth [place] tablet 00 daily. Medical [facility] methocarbam Yes [id number] 500mg Take 1 [facility] oL 500 mg 1-08 tablet by it[facility] o f tablet 00:00: mouth 4 [place] 00 (four) Medical times Branch daily as needed (muscle spasm). potassium Yes [id number] 10meq Take 1 [facility] chloride 10 1-08 tablet by it[facility] of mEq CR 00:00: mouth [place] tablet 00 daily. Medical Branch methocarbam Yes [id number] 500mg Take 1 [facility] oL 500 mg 1-08 tablet by ity o f tablet 00:00: mouth 4 [place] 00 (four) Medical times Branch daily as needed (muscle spasm). potassium Yes [id number] 10meq Take 1 [facility] chloride 10 1-08 tablet by [facility] of mEq CR 00:00: mouth [place] tablet 00 daily. Medical Branch potassium Yes [id number] 10meq Take 1 [facility] chloride 10 1-08 tablet by [facility] of mEq CR 00:00: mouth [place] tablet 00 daily. Medical Branch potassium Yes [id number] 10meq Take 1 [facility] chloride 10 1-08 tablet by ity of mEq CR 00:00: mouth [place] tablet 00 daily. Medical Branch potassium Yes [id number] 10meq Take 1 [facility] chloride 10 1-08 tablet by ity of mEq CR 00:00: mouth [place] tablet 00 daily. Medical Branch potassium 2020- No [id number] 10meq Take 1 [facility] chloride 10 1-08 -12 tablet by it y of mEq CR 00:00: 00:00 mouth [place] tablet 00 :00 daily. [facility] Branch methocarbam 2020- No [id number] 500mg Take 1 [facility] oL 500 mg -08 -09 tablet by ity of tablet 00:00: 00:00 mouth 4 [place] 00 :00 (four) Medical times Branch daily as needed (muscle spasm). methocarbam 2020- No [id number] 500mg Take 1 [facility] oL 500 mg -08 04-09 tablet by ity of tablet 00:00: 00:00 mouth 4 [place] 00 :00 (four) Medical times Branch daily as needed (muscle spasm). isosorbide 2020-0 2021- No [id number] 30mg Take 1 [facility] mononitrate 06-05 tablet by it y of 30 mg 24 hr 00:00: 00:00 mouth [place] tablet 00 :00 daily. [facility] gabapentin 2020-1 Yes [id number] 800mg Take 1 [facility] 800 mg 2-22 tablet by ity of tablet 00:00: mouth 3 (three) Medical times Branch daily. gabapentin 2020-1 Yes [id number] 800mg Take 1 [facility] 800 mg 2-22 tablet by ity of tablet 00:00: mouth 3 (three) Medical times Branch daily. gabapentin 2020-1 Yes [id number] 800mg Take 1 [facility] 800 mg 2-22 tablet by it[facility] of tablet 00:00: mouth 3 (three) Medical times Branch daily. gabapentin 2020-1 Yes [id number] 800mg Take 1 [facility] 800 mg 2-22 tablet by it[facility] of tablet 00:00: mouth 3 (three) Medical times Branch daily. gabapentin 2020-1 Yes [id number] 800mg Take 1 [facility] 800 mg 2-22 tablet by ity of tablet 00:00: mouth 3 (three) Medical times Branch daily. gabapentin 2020-1 Yes [id number] 800mg Take 1 [facility] 800 mg 2-22 tablet by it[facility] of tablet 00:00: mouth 3 (three) Medical times Branch daily. gabapentin 2020-1 Yes [id number] 800mg Take 1 [facility] 800 mg 2-22 tablet by ity of tablet 00:00: mouth 3 (three) Medical times Branch daily. gabapentin 2020-1 Yes [id number] 800mg Take 1 [facility] 800 mg 2-22 tablet by ity of tablet 00:00: mouth 3 (three) Medical times Branch daily. gabapentin 2020-1 Yes [id number] 800mg Take 1 [facility] 800 mg 2-22 tablet by ity of tablet 00:00: mouth 3 (three) Medical times Branch daily. gabapentin 2020-1 Yes [id number] 800mg Take 1 [facility] 800 mg 2-22 tablet by [facility] of tablet 00:00: mouth 3 (three) Medical times Branch daily. gabapentin 2020-1 Yes [id number] 800mg Take 1 [facility] 800 mg 2-22 tablet by it[facility] of tablet 00:00: mouth 3 (three) Medical times Branch daily. gabapentin 2020-1 Yes [id number] 800mg Take 1 [facility] 800 mg 2-22 tablet by it[facility] of tablet 00:00: mouth 3 (three) Medical times Branch daily. gabapentin 2020-1 Yes [id number] 800mg Take 1 [facility] 800 mg 2-22 tablet by it[facility] of tablet 00:00: mouth 3 (three) Medical times Branch daily. gabapentin 2020-1 Yes [id number] 800mg Take 1 [facility] 800 mg 2-22 tablet by it[facility] of tablet 00:00: mouth 3 (three) Medical times Branch daily. gabapentin 2020-1 Yes [id number] 800mg Take 1 [facility] 800 mg 2-22 tablet by ity of tablet 00:00: mouth (three) Medical times Branch daily. gabapentin 2020-1 Yes [id number] 800mg Take 1 [facility] 800 mg 2-22 tablet by ity of tablet 00:00: mouth (three) Medical times Branch daily. gabapentin 2020-1 Yes [id number] 800mg Take 1 [facility] 800 mg 2-22 tablet by ity of tablet 00:00: mouth (three) Medical times Branch daily. gabapentin 2020-1 Yes [id number] 800mg Take 1 [facility] 800 mg 2-22 tablet by ity of tablet 00:00: mouth (three) Medical times Branch daily. gabapentin 2020-1 Yes [id number] 800mg Take 1 [facility] 800 mg 2-22 tablet by ity of tablet 00:00: mouth (three) Medical times Branch daily. gabapentin 2020-1 Yes [id number] 800mg Take 1 [facility] 800 mg 2-22 tablet by ity of tablet 00:00: mouth 3 (three) Medical times Branch daily. gabapentin 2020-1 Yes [id number] 800mg Take 1 [facility] 800 mg 2-22 tablet by ity of tablet 00:00: mouth 3 (three) Medical times Branch daily. gabapentin 2020-1 Yes [id number] 800mg Take 1 [facility] 800 mg 2-22 tablet by ity of tablet 00:00: mouth 3 (three) Medical times Branch daily. gabapentin 2020-1 Yes [id number] 800mg Take 1 [facility] 800 mg 2-22 tablet by ity of tablet 00:00: mouth 3 (three) Medical times Branch daily. gabapentin 2020-1 Yes [id number] 800mg Take 1 [facility] 800 mg 2-22 tablet by ity of tablet 00:00: mouth 3 (three) Medical times Branch daily. gabapentin 2020-1 Yes [id number] 800mg Take 1 [facility] 800 mg 2-22 tablet by ity of tablet 00:00: mouth (three) Medical times Branch daily. gabapentin 2020-1 Yes [id number] 800mg Take 1 [facility] 800 mg 2-22 tablet by ity of tablet 00:00: mouth (three) Medical times Branch daily. gabapentin 2020-1 Yes [id number] 800mg Take 1 [facility] 800 mg 2-22 tablet by ity of tablet 00:00: mouth (three) Medical times Branch daily. gabapentin 2020-1 Yes [id number] 800mg Take 1 [facility] 800 mg 2-22 tablet by ity of tablet 00:00: mouth (three) Medical times Branch daily. gabapentin 2020-1 Yes [id number] 800mg Take 1 [facility] 800 mg 2-22 tablet by ity of tablet 00:00: mouth (three) Medical times Branch daily. gabapentin 2020-1 Yes [id number] 800mg Take 1 [facility] 800 mg 2-22 tablet by ity of tablet 00:00: mouth (three) Medical times Branch daily. gabapentin 2020-1 Yes [id number] 800mg Take 1 [facility] 800 mg 2-22 [...] Medical times Branch daily. gabapentin 2019-2020- No [id number] 800mg Take 1 [facility] 800 mg 2-22 07-23 tablet by ity of tablet 00:00: 00:00 mouth 3 [place] 00 :00 (three) Medical times Branch daily. methocarbam 2020- Yes [id number] 500mg Take 1 [facility] oL 500 mg 2-11 tablet by ity o f tablet 00:00: mouth 4 (four) Medical times Branch daily as needed (muscle spasm). methocarbam 2019-05 Yes [id number] 500mg Take 1 [facility] oL 500 mg 2-11 tablet by ity o f tablet 00:00: mouth 4 (four) Medical times Branch daily as needed (muscle spasm). methocarbam 2019-05 Yes [id number] 500mg Take 1 [facility] oL 500 mg 2-11 tablet by ity o f tablet 00:00: mouth 4 (four) Medical times Branch daily as needed (muscle spasm). methocarbam 2019-05 Yes [id number] 500mg Take 1 [facility] oL 500 mg 2-11 tablet by ity o f tablet 00:00: mouth (four) Medical times Branch daily as needed (muscle spasm). methocarbam 2019-05 Yes [id number] 500mg Take 1 [facility] oL 500 mg 2-11 tablet by ity o f tablet 00:00: mouth (four) Medical times Branch daily as needed (muscle spasm). methocarbam 2019-05 Yes [id number] 500mg Take 1 [facility] oL 500 mg 2-11 tablet by ity o f tablet 00:00: mouth (four) Medical times Branch daily as needed (muscle spasm). methocarbam 2019-05 Yes [id number] 500mg Take 1 [facility] oL 500 mg 2-11 tablet by ity o f tablet 00:00: mouth (four) Medical times Branch daily as needed (muscle spasm). methocarbam 2019-05- No [id number] 500mg Take 1 [facility] oL 500 mg 2-11 -08 tablet by ity of tablet 00:00: 00:00 mouth 4 [place] 00 :00 (four) Medical times Branch daily as needed (muscle spasm). PANTOPRAZOL 2019-05 Yes [id number] TAKE 1 [facility] E 40 mg EC 1-18 TABLET BY ity of tablet 00:00: MOUTH ONCE 00 DAILY DO Medical NOT CRUSH Branch OR CHEW FUROSEMIDE 2019-05 Yes [id number] Take 1 [facility] nivers 20 mg 1-18 tablet by ity of tablet 00:00: mouth once 00 daily Medical Branch POTASSIUM 2019-05 Yes [id number] Take 1 [facility] CHLORIDE 10 1-18 tablet by ity of mEq CR 00:00: mouth once [place] tablet 00 daily Medical Branch PANTOPRAZOL 2020- Yes [id number] TAKE 1 [facility] E 40 mg EC 1-18 TABLET BY ity of tablet 00:00: MOUTH ONCE [place] 00 DAILY DO Medical NOT CRUSH Branch OR CHEW FUROSEMIDE 2020- Yes [id number] Take 1 [facility] nivers 20 mg 1-18 tablet by ity of tablet 00:00: mouth once [place] 00 daily Medical Branch POTASSIUM 2020- Yes [id number] Take 1 [facility] CHLORIDE 10 1-18 tablet by ity of mEq CR 00:00: mouth once [place] tablet 00 daily Medical Branch PANTOPRAZOL 2020- Yes [id number] TAKE 1 [facility] E 40 mg EC 1-18 TABLET BY ity of tablet 00:00: MOUTH ONCE [place] 00 DAILY DO Medical NOT CRUSH Branch OR CHEW FUROSEMIDE 2020- Yes [id number] Take 1 [facility] nivers 20 mg 1-18 tablet by ity of tablet 00:00: mouth once [place] 00 daily Medical Branch POTASSIUM 2020- Yes [id number] Take 1 [facility] CHLORIDE 10 1-18 tablet by ity of mEq CR 00:00: mouth once [place] tablet 00 daily Medical Branch PANTOPRAZOL 2020- Yes [id number] TAKE 1 [facility] E 40 mg EC 1-18 TABLET BY ity of tablet 00:00: MOUTH ONCE [place] 00 DAILY DO Medical NOT CRUSH Branch OR CHEW FUROSEMIDE 2020- Yes [id number] Take 1 [facility] nivers 20 mg 1-18 tablet by ity of tablet 00:00: mouth once [place] 00 daily Medical Branch POTASSIUM 2020- Yes [id number] Take 1 [facility] CHLORIDE 10 1-18 tablet by ity of mEq CR 00:00: mouth once [place] tablet 00 daily Medical Branch PANTOPRAZOL 2020- Yes [id number] TAKE 1 [facility] E 40 mg EC 1-18 TABLET BY ity of tablet 00:00: MOUTH ONCE [place] 00 DAILY DO Medical NOT CRUSH Branch OR CHEW FUROSEMIDE 2020- Yes [id number] Take 1 [facility] nivers 20 mg 1-18 tablet by ity of tablet 00:00: mouth once [place] 00 daily Medical Branch POTASSIUM 2020- Yes [id number] Take 1 [facility] CHLORIDE 10 1-18 tablet by ity of mEq CR 00:00: mouth once [place] tablet 00 daily Medical Branch PANTOPRAZOL 2020- Yes [id number] TAKE 1 [facility] E 40 mg EC 1-18 TABLET BY ity of tablet 00:00: MOUTH ONCE [place] 00 DAILY DO Medical NOT CRUSH Branch OR CHEW FUROSEMIDE 2020- Yes [id number] Take 1 U nivers 20 mg 1-18 tablet by ity of tablet 00:00: mouth once [place] 00 daily Medical Branch POTASSIUM 2020- Yes [id number] Take 1 [facility] [place] CHLORIDE 10 1-18 tablet by ity of mEq CR 00:00: mouth once [place] tablet 00 daily Medical Branch PANTOPRAZOL 2020- Yes [id number] TAKE 1 [facility] E 40 mg EC 1-18 TABLET BY ity of tablet 00:00: MOUTH ONCE [place] 00 DAILY DO Medical NOT CRUSH Branch OR CHEW FUROSEMIDE 2020- Yes [id number] Take 1 [facility] nivers 20 mg 1-18 tablet by ity of tablet 00:00: mouth once [place] 00 daily Medical Branch POTASSIUM 2020- Yes [id number] Take 1 [facility] CHLORIDE 10 1-18 tablet by ity of mEq CR 00:00: mouth once [place] tablet 00 daily Medical Branch PANTOPRAZOL 2020- Yes [id number] TAKE 1 [facility] E 40 mg EC 1-18 TABLET BY ity of tablet 00:00: MOUTH ONCE [place] 00 DAILY DO Medical NOT CRUSH Branch OR CHEW FUROSEMIDE 2020- Yes [id number] Take 1 [facility] nivers 20 mg 1-18 tablet by ity of tablet 00:00: mouth once [place] 00 daily Medical Branch POTASSIUM 2020- Yes [id number] Take 1 [facility] CHLORIDE 10 1-18 tablet by ity of mEq CR 00:00: mouth once [place] tablet 00 daily Medical Branch PANTOPRAZOL 2020- Yes [id number] TAKE 1 [facility] E 40 mg EC 1-18 TABLET BY ity of tablet 00:00: MOUTH ONCE [place] 00 DAILY DO Medical NOT CRUSH Branch OR CHEW FUROSEMIDE 2020- Yes [id number] Take 1 [facility] nivers 20 mg 1-18 tablet by ity of tablet 00:00: mouth once [place] 00 daily Medical Branch FUROSEMIDE 2020- Yes [id number] Take 1 [facility] nivers 20 mg 1-18 tablet by ity of tablet 00:00: mouth once [place] 00 daily Medical Branch FUROSEMIDE 2020- Yes [id number] Take 1 U nivers 20 mg 1-18 tablet by ity of tablet 00:00: mouth once [place] 00 daily Medical Branch FUROSEMIDE 2020- Yes [id number] Take 1 [facility] nivers 20 mg 1-18 tablet by ity of tablet 00:00: mouth once [place] daily Medical Branch FUROSEMIDE 2019-05 Yes [id number] Take 1 [facility] nivers 20 mg 1-18 tablet by ity of tablet 00:00: mouth once [place] daily Medical Branch FUROSEMIDE 2019-05 Yes [id number] Take 1 [facility] nivers 20 mg 1-18 tablet by ity of tablet 00:00: mouth once [place] daily Medical Branch FUROSEMIDE 2019-05 Yes [id number] Take 1 [facility] nivers 20 mg 1-18 tablet by ity of tablet 00:00: mouth once [place] daily Medical Branch FUROSEMIDE 2019-05 Yes [id number] Take 1 [facility] nivers 20 mg 1-18 tablet by ity of tablet 00:00: mouth once [place] daily Medical Branch FUROSEMIDE 2019-05 Yes [id number] Take 1 [facility] nivers 20 mg 1-18 tablet by ity of tablet 00:00: mouth once [place] daily Medical Branch FUROSEMIDE 2019-05 Yes [id number] Take 1 [facility] nivers 20 mg 1-18 tablet by ity of tablet 00:00: mouth once [place] daily Medical Branch FUROSEMIDE 2019-05 Yes [id number] Take 1 [facility] nivers 20 mg 1-18 tablet by ity of tablet 00:00: mouth once [place] daily Medical Branch FUROSEMIDE 2019-05 Yes [id number] Take 1 [facility] nivers 20 mg 1-18 tablet by ity of tablet 00:00: mouth once [place] daily Medical Branch FUROSEMIDE 2019-05- No [id number] Take 1 [facility] 20 mg 1-18 -12 tablet by [facility]y of tablet 00:00: 00:00 mouth [place] 00 :00 daily [facility] PANTOPRAZOL 2019-05- No [id number] TAKE 1 [facility] E 40 mg EC -18 06-08 TABLET BY ity of tablet 00:00: 00:00 MOUTH ONCE [place] 00 :00 DAILY DO Medical NOT CRUSH Branch OR CHEW POTASSIUM 2019-05- No [id number] Take 1 U nivers CHLORIDE 10 -18 06-05 tablet by it y of mEq CR 00:00: 00:00 mouth once [place] tablet 00 :00 daily Medical Branch gabapentin 2019-05 Yes [id number] 800mg Take 1 [facility] 800 mg 1-16 tablet by ity of tablet 00:00: mouth 3 (three) Medical times Branch daily. gabapentin 2019-05 Yes [id number] 800mg Take 1 [facility] 800 mg 1-16 tablet by ity of tablet 00:00: mouth 3 00 (three) Medical times Branch daily. gabapentin 2020-1 Yes [id number] 800mg Take 1 [facility] 800 mg 1-16 tablet by ity of tablet 00:00: mouth 3 00 (three) Medical times Branch daily. gabapentin 2020-1 Yes [id number] 800mg Take 1 [facility] 800 mg 1-16 tablet by ity of tablet 00:00: mouth 3 00 (three) Medical times Branch daily. gabapentin 2020-1 Yes [id number] 800mg Take 1 [facility] 800 mg 1-16 tablet by ity of tablet 00:00: mouth 3 00 (three) Medical times Branch daily. gabapentin 2020-1 Yes [id number] 800mg Take 1 [facility] 800 mg 1-16 tablet by ity of tablet 00:00: mouth 3 00 (three) Medical times Branch daily. gabapentin 2020- Yes [id number] 800mg Take 1 [facility] 800 mg 1-16 tablet by ity of tablet 00:00: mouth 3 00 (three) Medical times Branch daily. gabapentin 2020-1 Yes [id number] 800mg Take 1 [facility] 800 mg 1-16 tablet by ity of tablet 00:00: mouth 3 00 (three) Medical times Branch daily. gabapentin 2019- 2020- No [id number] 800mg Take 1 [facility] 800 mg 1-16 12-22 tablet by ity of tablet 00:00: 00:00 mouth 3 [place] 00 :00 (three) Medical times Branch daily. Nitrofurant 2019- Yes [id number] 100mg Take 1 [facility] oin&Nit. 1-10 capsule by ity o f Macrocryst 00:00: mouth 2 [place] (MACROBID) 00 (two) Medical 100 mg times Branch capsule daily. Nitrofurant 2019- Yes [id number] 100mg Take 1 [facility] oin&Nit. 1-10 capsule by ity o f Macrocryst 00:00: mouth 2 [place] (MACROBID) 00 (two) Medical 100 mg times Branch capsule daily. Nitrofurant 2019- Yes [id number] 100mg Take 1 [facility] oin&Nit. 1-10 capsule by ity o f Macrocryst 00:00: mouth 2 [place] (MACROBID) 00 (two) Medical 100 mg times Branch capsule daily. Nitrofurant 2019-05 Yes [id number] 100mg Take 1 [facility] oin&Nit. 1-10 capsule by ity o f Macrocryst 00:00: mouth 2 [place] (MACROBID) 00 (two) Medical 100 mg times Branch capsule daily. Nitrofurant 2019-05 Yes [id number] 100mg Take 1 [facility] oin&Nit. 1-10 capsule by ity o f Macrocryst 00:00: mouth 2 [place] (MACROBID) 00 (two) Medical 100 mg times Branch capsule daily. Nitrofurant 2019-05 Yes [id number] 100mg Take 1 [facility] oin&Nit. 1-10 capsule by ity o f Macrocryst 00:00: mouth 2 [place] (MACROBID) 00 (two) Medical 100 mg times Branch capsule daily. Nitrofurant 2019-05 Yes [id number] 100mg Take 1 [facility] oin&Nit. 1-10 capsule by ity o f Macrocryst 00:00: mouth 2 [place] (MACROBID) 00 (two) Medical 100 mg times Branch capsule daily. Nitrofurant 2019-05 Yes [id number] 100mg Take 1 [facility] oin&Nit. 1-10 capsule by ity o f Macrocryst 00:00: mouth 2 [place] (MACROBID) 00 (two) Medical 100 mg times Branch capsule daily. Nitrofurant 2019-05 2020- No [id number] 100mg Take 1 [facility] oin&Nit. 1-10 12-19 capsule by ity of Macrocryst 00:00: 00:00 mouth 2 [place] (MACROBID) 00 :00 (two) Medical 100 mg times Branch capsule daily. Nitrofurant 2019-05 2020- No [id number] 100mg Take 1 [facility] oin&Nit. 1-10 12-19 [...] for tablet 7 days. metroNIDAZO 2019-05 Yes [id number] 500mg Take 1 [facility] LE 500 mg 1-06 tablet by ity o f tablet 00:00: mouth [place] 00 every 12 Medical (twelve) Branch hours. clotrimazol 2019-05 Yes [id number] Apply to [facility] e-betametha 1-06 area(s) 2 ity of sone cream 00:00: (two) [place] 00 times Medical daily. Use Branch for 2 weeks on affected area metroNIDAZO 2019-05 Yes [id number] 500mg Take 1 [facility] LE 500 mg 1-06 tablet by ity o f tablet 00:00: mouth [place] 00 every 12 Medical (twelve) Branch hours. clotrimazol 2019- Yes [id number] Apply to [facility] e-betametha 1-06 area(s) 2 ity of sone cream 00:00: (two) [place] 00 times Medical daily. Use Branch for 2 weeks on affected area metroNIDAZO 2019- Yes [id number] 500mg Take 1 [facility] LE 500 mg 1-06 tablet by ity o f tablet 00:00: mouth [place] 00 every 12 Medical (twelve) Branch hours. clotrimazol 2019- Yes [id number] Apply to [facility] e-betametha 1-06 area(s) 2 ity of sone cream 00:00: (two) [place] 00 times Medical daily. Use Branch for 2 weeks on affected area metroNIDAZO 2019-05 Yes [id number] 500mg Take 1 [facility] LE 500 mg 1-06 tablet by ity o f tablet 00:00: mouth [place] 00 every 12 Medical (twelve) Branch hours. clotrimazol 2019- Yes [id number] Apply to [facility] e-betametha 1-06 area(s) 2 ity of sone cream 00:00: (two) [place] 00 times Medical daily. Use Branch for 2 weeks on affected area metroNIDAZO 2020- Yes [id number] 500mg Take 1 [facility] LE 500 mg 1-06 tablet by ity o f tablet 00:00: mouth [place] 00 every 12 Medical (twelve) Branch hours. clotrimazol 2020- Yes [id number] Apply to [facility] e-betametha 1-06 area(s) 2 ity of sone cream 00:00: (two) [place] 00 times Medical daily. Use Branch for 2 weeks on affected area metroNIDAZO 2019-05 Yes [id number] 500mg Take 1 [facility] LE 500 mg 1-06 tablet by ity o f tablet 00:00: mouth [place] 00 every 12 Medical (twelve) Branch hours. clotrimazol 2019- Yes [id number] Apply to [facility] e-betametha 1-06 area(s) 2 ity of sone cream 00:00: (two) [place] 00 times Medical daily. Use Branch for 2 weeks on affected area metroNIDAZO 2019-05 Yes [id number] 500mg Take 1 [facility] LE 500 mg 1-06 tablet by ity o f tablet 00:00: mouth [place] 00 every 12 Medical (twelve) Branch hours. clotrimazol 2019- Yes [id number] Apply to [facility] e-betametha 1-06 area(s) 2 ity of sone cream 00:00: (two) [place] 00 times Medical daily. Use Branch for 2 weeks on affected area metroNIDAZO 2019- Yes [id number] 500mg Take 1 [facility] LE 500 mg 1-06 tablet by ity o f tablet 00:00: mouth [place] 00 every 12 Medical (twelve) Branch hours. clotrimazol 2020- Yes [id number] Apply to [facility] e-betametha 1-06 area(s) 2 ity of sone cream 00:00: (two) [place] 00 times Medical daily. Use Branch for 2 weeks on affected area metroNIDAZO 2019-05 Yes [id number] 500mg Take 1 [facility] LE 500 mg 1-06 tablet by ity o f tablet 00:00: mouth [place] 00 every 12 Medical (twelve) Branch hours. clotrimazol 2020- Yes [id number] Apply to [facility] e-betametha 1-06 area(s) 2 ity of sone cream 00:00: (two) [place] 00 times Medical daily. Use Branch for 2 weeks on affected area metroNIDAZO 2020- Yes [id number] 500mg Take 1 [facility] LE 500 mg 1-06 tablet by ity o f tablet 00:00: mouth [place] 00 every 12 Medical (twelve) Branch hours. clotrimazol 2020- Yes [id number] Apply to [facility] e-betametha 1-06 area(s) 2 ity of sone cream 00:00: (two) [place] 00 times Medical daily. Use Branch for 2 weeks on affected area metroNIDAZO 2020- Yes [id number] 500mg Take 1 [facility] LE 500 mg 1-06 tablet by ity o f tablet 00:00: mouth [place] 00 every 12 Medical (twelve) Branch hours. clotrimazol 2020- Yes [id number] Apply to [facility] e-betametha 1-06 area(s) 2 ity of sone cream 00:00: (two) [place] 00 times Medical daily. Use Branch for 2 weeks on affected area metroNIDAZO 2020- Yes [id number] 500mg Take 1 [facility] LE 500 mg 1-06 tablet by ity o f tablet 00:00: mouth [place] 00 every 12 Medical (twelve) Branch hours. clotrimazol 2020- Yes [id number] Apply to [facility] e-betametha 1-06 area(s) 2 ity of sone cream 00:00: (two) [place] 00 times Medical daily. Use Branch for 2 weeks on affected area clotrimazol 2020- Yes [id number] Apply to [facility] e-betametha 1-06 area(s) 2 ity of sone cream 00:00: (two) [place] 00 times Medical daily. Use Branch for 2 weeks on affected area clotrimazol 2020- Yes [id number] Apply to [facility] e-betametha 1-06 area(s) 2 ity of sone cream 00:00: (two) [place] 00 times Medical daily. Use Branch for 2 weeks on affected area clotrimazol 2020- Yes [id number] Apply to [facility] e-betametha 1-06 area(s) 2 ity of sone cream 00:00: (two) [place] 00 times Medical daily. Use Branch for 2 weeks on affected area clotrimazol 2020-1 Yes [id number] Apply to [facility] e-betametha 1-06 area(s) 2 ity of sone cream 00:00: (two) [place] 00 times Medical daily. Use Branch for 2 weeks on affected area clotrimazol 2020-1 Yes [id number] Apply to [facility] e-betametha 1-06 area(s) 2 ity of sone cream 00:00: (two) [place] 00 times Medical daily. Use Branch for 2 weeks on affected area clotrimazol 2020-1 Yes [id number] Apply to [facility] e-betametha 1-06 area(s) 2 ity of sone cream 00:00: (two) [place] 00 times Medical daily. Use Branch for 2 weeks on affected area clotrimazol 2020-1 Yes [id number] Apply to [facility] e-betametha 1-06 area(s) 2 ity of sone cream 00:00: (two) [place] 00 times Medical daily. Use Branch for 2 weeks on affected area clotrimazol 2020-1 Yes [id number] Apply to [facility] e-betametha 1-06 area(s) 2 ity of sone cream 00:00: (two) [place] 00 times Medical daily. Use Branch for 2 weeks on affected area clotrimazol 2020-1 Yes [id number] Apply to [facility] e-betametha 1-06 area(s) 2 ity of sone cream 00:00: (two) [place] 00 times Medical daily. Use Branch for 2 weeks on affected area clotrimazol 2020-1 Yes [id number] Apply to [facility] e-betametha 1-06 area(s) 2 ity of sone cream 00:00: (two) [place] 00 times Medical daily. Use Branch for 2 weeks on affected area clotrimazol 2020-1 Yes [id number] Apply to [facility] e-betametha 1-06 area(s) 2 ity of sone cream 00:00: (two) [place] 00 times Medical daily. Use Branch for 2 weeks on affected area clotrimazol 2020-1 Yes [id number] Apply to [facility] e-betametha 1-06 area(s) 2 ity of sone cream 00:00: (two) [place] 00 times Medical daily. Use Branch for 2 weeks on affected area clotrimazol 2019-05- No [id number] Apply to [facility] e-betametha 06-03 area(s) 2 it y of sone cream 00:00: 00:00 (two) [place] 00 :00 times Medical daily. Use Branch for 2 weeks on affected area clotrimazol 2019-05- No [id number] Apply to [facility] e-betametha 06-03 area(s) 2 it y of sone cream 00:00: 00:00 (two) [place] 00 :00 times Medical daily. Use Branch for 2 weeks on affected area metroNIDAZO 2019-05- No [id number] 500mg Take 1 [facility] LE 500 mg 06-03 tablet by ity of tablet 00:00: 00:00 mouth [place] 00 :00 every 12 Medical (twelve) Branch hours. metroNIDAZO 2019-05- No [id number] 500mg Take 1 [facility] LE 500 mg 06-03 tablet by ity of tablet 00:00: 00:00 mouth [place] 00 :00 every 12 Medical (twelve) Branch hours. fluconazole 2019-05- No [id number] 150mg Take 1 [facility] 150 mg 06-03 tablet by ity of tablet 00:00: 05:59 mouth [place] 00 :00 every 72 Medical ([facility]) hours for 2 doses. Take one tab now and a second dose in 72 hours fluconazole 2019-05- No [id number] 150mg Take 1 [facility] 150 mg 06-03 tablet by ity of tablet 00:00: 05:59 mouth [place] 00 :00 every 72 Medical ([facility]) hours for 2 doses. Take one tab now and a second dose in 72 hours fluconazole 2019-05- No [id number] 150mg Take 1 [facility] 150 mg 06-03 tablet by ity of tablet 00:00: 05:59 mouth [place] 00 :00 every 72 Medical ([facility]) hours for 2 doses. Take one tab now and a second dose in 72 hours fluconazole 2019-05- No [id number] 150mg Take 1 [facility] 150 mg 06-03 tablet by ity of tablet 00:00: 05:59 mouth [place] 00 :00 every 72 Medical ([facility]) hours for 2 doses. Take one tab now and a second dose in 72 hours PANTOPRAZOL 2020-1 Yes [id number] TAKE 1 [facility] E 40 mg EC 0-23 TABLET BY ity of tablet 00:00: MOUTH ONCE [place] 00 DAILY DO Medical NOT CRUSH Branch OR CHEW POTASSIUM 2020-1 Yes [id number] Take 1 Un [facility] CHLORIDE 10 0-23 tablet by ity of mEq CR 00:00: mouth once [place] tablet 00 daily Medical Branch PANTOPRAZOL 2020- Yes [id number] TAKE 1 [facility] E 40 mg EC 0-23 TABLET BY ity of tablet 00:00: MOUTH ONCE [place] 00 DAILY DO Medical NOT CRUSH Branch OR CHEW POTASSIUM 2020-1 Yes [id number] Take 1 [facility] CHLORIDE 10 0-23 tablet by ity of mEq CR 00:00: mouth once [place] tablet 00 daily Medical Branch PANTOPRAZOL 2020- Yes [id number] TAKE 1 [facility] E 40 mg EC 0-23 TABLET BY ity of tablet 00:00: MOUTH ONCE [place] 00 DAILY DO Medical NOT CRUSH Branch OR CHEW POTASSIUM 2020-1 Yes [id number] Take 1 [facility] CHLORIDE 10 0-23 tablet by ity of mEq CR 00:00: mouth once [place] tablet 00 daily Medical Branch PANTOPRAZOL 2020- Yes [id number] TAKE 1 [facility] E 40 mg EC 0-23 TABLET BY ity of tablet 00:00: MOUTH ONCE [place] 00 DAILY DO Medical NOT CRUSH Branch OR CHEW POTASSIUM 2020-1 Yes [id number] Take 1 [facility] CHLORIDE 10 0-23 tablet by ity of mEq CR 00:00: mouth once [place] tablet 00 daily Medical Branch PANTOPRAZOL 2020- Yes [id number] TAKE 1 [facility] E 40 mg EC 0-23 TABLET BY ity of tablet 00:00: MOUTH ONCE [place] 00 DAILY DO Medical NOT CRUSH Branch OR CHEW POTASSIUM 2020-1 Yes [id number] Take 1 [facility] CHLORIDE 10 0-23 tablet by ity of mEq CR 00:00: mouth once [place] tablet 00 daily Medical Branch PANTOPRAZOL 2020-1 Yes [id number] TAKE 1 [facility] E 40 mg EC 0-23 TABLET BY ity of tablet 00:00: MOUTH ONCE [place] 00 DAILY DO Medical NOT CRUSH Branch OR CHEW POTASSIUM 2020-1 Yes [id number] Take 1 [facility] CHLORIDE 10 0-23 tablet by ity of mEq CR 00:00: mouth once [place] tablet 00 daily Medical Branch PANTOPRAZOL 2020-1 Yes [id number] TAKE 1 [facility] E 40 mg EC 0-23 TABLET BY ity of tablet 00:00: MOUTH ONCE 00 DAILY DO Medical NOT CRUSH Branch OR CHEW POTASSIUM 2020- Yes [id number] Take 1 [facility]i CHLORIDE 10 0-23 tablet by ity of mEq CR 00:00: mouth once [place] tablet 00 daily Medical Branch PANTOPRAZOL 2019- Yes [id number] TAKE 1 [facility] E 40 mg EC 0-23 TABLET BY ity of tablet 00:00: MOUTH ONCE [place] 00 DAILY DO Medical NOT CRUSH Branch OR CHEW POTASSIUM 2020-1 Yes [id number] Take 1 [facility] CHLORIDE 10 0-23 tablet by ity of mEq CR 00:00: mouth once [place] tablet 00 daily Medical Branch PANTOPRAZOL 2019-05 2020- No [id number] TAKE 1 [facility] E 40 mg EC 0-23 11-18 TABLET BY ity of tablet 00:00: 00:00 [place]TH [place]CE [place] 00 :00 DAILY DO Medical NOT CRUSH Branch OR CHEW POTASSIUM 2019- 2020- No [id number] Take 1 [facility] nivers CHLORIDE 10 0-23 11-18 tablet by it y of mEq CR 00:00: 00:00 mouth once [place] tablet 00 :00 daily Medical Branch gabapentin 2019- Yes [id number] 800mg Take 1 [facility] 800 mg 0-14 tablet by ity of tablet 00:00: mouth () Medical times Branch daily. gabapentin 2020- Yes [id number] 800mg Take 1 [facility] 800 mg 0-14 tablet by ity of tablet 00:00: mouth (three) Medical times Branch daily. gabapentin 2020- Yes [id number] 800mg Take 1 [facility] 800 mg 0-14 tablet by ity of tablet 00:00: mouth 3 (three) Medical times Branch daily. gabapentin 2020-1 Yes [id number] 800mg Take 1 [facility] 800 mg 0-14 tablet by ity of tablet 00:00: mouth 3 (three) Medical times Branch daily. gabapentin 2020-1 Yes [id number] 800mg Take 1 [facility] 800 mg 0-14 tablet by ity of tablet 00:00: mouth 3 (three) Medical times Branch daily. gabapentin 2020- Yes [id number] 800mg Take 1 [facility] 800 mg 0-14 tablet by ity of tablet 00:00: mouth 3 (three) Medical times Branch daily. gabapentin 2020-1 Yes [id number] 800mg Take 1 [facility] 800 mg 0-14 tablet by ity of tablet 00:00: mouth 3 [place] 00 (three) Medical times Branch daily. gabapentin 2020-1 Yes [id number] 800mg Take 1 [facility] 800 mg 0-14 tablet by ity of tablet 00:00: mouth 3 [place] 00 (three) Medical times Branch daily. gabapentin 2020-1 2020- No [id number] 800mg Take 1 [facility] 800 mg 0-14 11-16 tablet by ity of tablet 00:00: 00:00 mouth 3 [place] 00 :00 (three) Medical times Branch daily. FUROSEMIDE 2020-0 Yes [id number] Take 1 U nivers 20 mg 8-18 tablet by ity of tablet 00:00: mouth once [place] daily Medical Branch FUROSEMIDE 2020-0 Yes [id number] Take 1 U nivers 20 mg 8-18 tablet by ity of tablet 00:00: mouth once [place] daily Medical Branch FUROSEMIDE 2020-0 Yes [id number] Take 1 U nivers 20 mg 8-18 tablet by ity of tablet 00:00: mouth once [place] daily Medical Branch FUROSEMIDE 2020-0 Yes [id number] Take 1 U nivers 20 mg 8-18 tablet by ity of tablet 00:00: mouth once [place] daily Medical Branch FUROSEMIDE 2020-0 Yes [id number] Take 1 U nivers 20 mg 8-18 tablet by ity of tablet 00:00: mouth once [place] daily Medical Branch FUROSEMIDE 2020-0 Yes [id number] Take 1 U nivers 20 mg 8-18 tablet by ity of tablet 00:00: mouth once [place] daily Medical Branch FUROSEMIDE 2020-0 Yes [id number] Take 1 U nivers 20 mg 8-18 tablet by ity of tablet 00:00: mouth once [place] daily Medical Branch FUROSEMIDE 2020-0 Yes [id number] Take 1 U nivers 20 mg 8-18 tablet by ity of tablet 00:00: mouth once [place] daily Medical Branch FUROSEMIDE 2020-0 Yes [id number] Take 1 U nivers 20 mg 8-18 tablet by ity of tablet 00:00: mouth once [place] daily Medical Branch FUROSEMIDE 2020-0 Yes [id number] Take 1 U nivers 20 mg 8-18 tablet by ity of tablet 00:00: mouth once [place] daily Medical Branch FUROSEMIDE 2020-0 Yes [id number] Take 1 U nivers 20 mg 8-18 tablet by ity of tablet 00:00: mouth once 00 daily Medical Branch FUROSEMIDE 2020-0 Yes [id number] Take 1 U nivers 20 mg 8-18 tablet by ity of tablet 00:00: mouth once 00 daily Medical Branch FUROSEMIDE 2020-0 2020- No [id number] Take 1 [facility] 20 mg 8-18 11-18 tablet by ity of tablet 00:00: 00:00 mouth once [place] 00 :00 daily Medical Branch fluconazole 2020-0 2020- No [id number] 150mg Take 1 [facility] 150 mg 8-14 08-15 tablet by ity of tablet 00:00: 04:59 mouth once [place] 00 :00 now for 1 Medical dose. Branch fluconazole 2020-0 2020- No [id number] 150mg Take 1 [facility] 150 mg 8-14 08-15 tablet by ity of tablet 00:00: 04:59 mouth once [place] 00 :00 now for 1 Medical dose. Branch gabapentin 2020-0 Yes [id number] 800mg Take 1 [facility] 800 mg 7-15 tablet by ity of tablet 00:00: mouth 3 ([facility]) Medical times Branch daily. gabapentin 2020-0 Yes [id number] 800mg Take 1 [facility] 800 mg 7-15 tablet by ity of tablet 00:00: mouth ([facility]) Medical times Branch daily. gabapentin 2020-0 Yes [id number] 800mg Take 1 [facility] 800 mg 7-15 tablet by ity of tablet 00:00: mouth (three) Medical times Branch daily. gabapentin 2020-0 Yes [id number] 800mg Take 1 [facility] 800 mg 7-15 tablet by ity of tablet 00:00: mouth (three) Medical times Branch daily. gabapentin 2020-0 Yes [id number] 800mg Take 1 [facility] 800 mg 7-15 tablet by ity of tablet 00:00: mouth (three) Medical times Branch daily. gabapentin 2020-0 Yes [id number] 800mg Take 1 [facility] 800 mg 7-15 tablet by ity of tablet 00:00: mouth 3 (three) Medical times Branch daily. gabapentin 2020-0 Yes [id number] 800mg Take 1 [facility] 800 mg 7-15 tablet by ity of tablet 00:00: mouth (three) Medical times Branch daily. gabapentin 2020-0 2020- No [id number] 800mg Take 1 [facility] 800 mg 7-15 10-14 tablet by ity of tablet 00:00: 00:00 mouth 3 [place] 00 :00 (three) Medical times Branch daily. metFORMIN 2020-0 Yes 1000mg Take 2 [facility] ers 500 mg 7-09 tablets by ity of tablet 00:00: mouth 2 [place] 00 (two) Medical times Branch daily with meals. pantoprazol 2020-0 Yes [id number] 40mg Take 1 [facility] e 40 mg EC 7-09 tablet by ity of tablet 00:00: mouth [place] 00 daily. Do Medical not Crush Branch or Chew DULOXETINE 2020-0 Yes [id number] Take 1 [facility] 30 mg 7-09 capsule by ity of capsule 00:00: mouth once [place] 00 daily Medical Branch metFORMIN 2020-0 Yes 1000mg Take 2 [facility] ers 500 mg 7-09 tablets by ity of tablet 00:00: mouth 2 [place] 00 (two) Medical times Branch daily with meals. POTASSIUM 2020-0 Yes [id number] Take 1 [facility]i CHLORIDE 10 7-09 tablet by ity of mEq CR 00:00: mouth once [place] tablet 00 daily Medical Branch pantoprazol 2020-0 Yes [id number] 40mg Take 1 [facility] e 40 mg EC 7-09 tablet by ity of tablet 00:00: mouth [place] 00 daily. Do Medical not Crush Branch or Chew DULOXETINE 2020-0 Yes [id number] Take 1 [facility] 30 mg 7-09 capsule by ity of capsule 00:00: mouth once [place] 00 daily Medical Branch metFORMIN 2020-0 Yes 1000mg Take 2 [facility] ers 500 mg 7-09 tablets by ity of tablet 00:00: mouth 2 (two) Medical times Branch daily with meals. POTASSIUM 2020-0 Yes [id number] Take 1 [facility]i CHLORIDE 10 7-09 tablet by ity of mEq CR 00:00: mouth once [place] tablet 00 daily Medical Branch pantoprazol 2020-0 Yes [id number] 40mg Take 1 [facility] e 40 mg EC 7-09 tablet by ity of tablet 00:00: mouth [place] 00 daily. Do Medical not Crush Branch or Chew DULOXETINE 2020-0 Yes [id number] Take 1 [facility] 30 mg 7-09 capsule by ity of capsule 00:00: mouth once [place] 00 daily Medical Branch metFORMIN 2020-0 Yes 1000mg Take 2 [facility] ers 500 mg 7-09 tablets by ity of tablet 00:00: mouth 2 (two) Medical times Branch daily with meals. POTASSIUM 2020-0 Yes [id number] Take 1 [facility] cali CHLORIDE 10 7-09 tablet by ity of mEq CR 00:00: mouth once [place] tablet 00 daily Medical Branch pantoprazol 2020-0 Yes [id number] 40mg Take 1 [facility] e 40 mg EC 7-09 tablet by ity of tablet 00:00: mouth [place] 00 daily. Do Medical not Crush Branch or Chew DULOXETINE 2020-0 Yes [id number] Take 1 [facility] 30 mg 7-09 capsule by ity of capsule 00:00: mouth once [place] 00 daily Medical Branch metFORMIN 2020-0 Yes 1000mg Take 2 [facility] ers 500 mg 7-09 tablets by ity of tablet 00:00: mouth 2 (two) Medical times Branch daily with meals. POTASSIUM 2020-0 Yes [id number] Take 1 [facility]i CHLORIDE 10 7-09 tablet by ity of mEq CR 00:00: mouth once [place] tablet 00 daily Medical Branch pantoprazol 2020-0 Yes [id number] 40mg Take 1 [facility] e 40 mg EC 7-09 tablet by ity of tablet 00:00: mouth 00 daily. Do Medical not Crush Branch or Chew DULOXETINE 2020-0 Yes [id number] Take 1 [facility] 30 mg 7-09 capsule by ity of capsule 00:00: mouth once [place] 00 daily Medical Branch metFORMIN 2020-0 Yes 1000mg Take 2 [facility] ers 500 mg 7-09 tablets by ity of tablet 00:00: mouth (two) Medical times Branch daily with meals. POTASSIUM 2020-0 Yes [id number] Take 1 [facility]i CHLORIDE 10 7-09 tablet by ity of mEq CR 00:00: mouth once [place] tablet 00 daily Medical Branch pantoprazol 2020-0 Yes [id number] 40mg Take 1 [facility] e 40 mg EC 7-09 tablet by ity of tablet 00:00: mouth [place] 00 daily. Do Medical not Crush Branch or Chew DULOXETINE 2020-0 Yes [id number] Take 1 [facility] 30 mg 7-09 capsule by ity of capsule 00:00: mouth once [place] 00 daily Medical Branch metFORMIN 2020-0 Yes 1000mg Take 2 [facility] ers 500 mg 7-09 tablets by ity of tablet 00:00: mouth 2 (two) Medical times Branch daily with meals. POTASSIUM 2020-0 Yes [id number] Take 1 Un cali CHLORIDE 10 7-09 tablet by ity of mEq CR 00:00: mouth once [place] tablet 00 daily Medical Branch pantoprazol 2020-0 Yes [id number] 40mg Take 1 [facility] e 40 mg EC 7-09 tablet by ity of tablet 00:00: mouth [place] 00 daily. Do Medical not Crush Branch or Chew DULOXETINE 2020-0 Yes [id number] Take 1 [facility] 30 mg 7-09 capsule by ity of capsule 00:00: mouth once [place] 00 daily Medical Branch metFORMIN 2020-0 Yes 1000mg Take 2 [facility] ers 500 mg 7-09 tablets by ity of tablet 00:00: mouth 2 (two) Medical times Branch daily with meals. POTASSIUM 2020-0 Yes [id number] Take 1 [facility]i CHLORIDE 10 7-09 tablet by ity of mEq CR 00:00: mouth once [place] tablet 00 daily Medical Branch pantoprazol 2020-0 Yes [id number] 40mg Take 1 [facility] e 40 mg EC 7-09 tablet by ity of tablet 00:00: mouth 00 daily. Do Medical not Crush Branch or Chew DULOXETINE 2020-0 Yes [id number] Take 1 [facility] 30 mg 7-09 capsule by ity of capsule 00:00: mouth once [place] 00 daily Medical Branch metFORMIN 2020-0 Yes 1000mg Take 2 [facility] ers 500 mg 7-09 tablets by ity of tablet 00:00: mouth 2 (two) Medical times Branch daily with meals. POTASSIUM 2020-0 Yes [id number] Take 1 Un [facility]i CHLORIDE 10 7-09 tablet by ity of mEq CR 00:00: mouth once [place] tablet 00 daily Medical Branch pantoprazol 2020-0 Yes [id number] 40mg Take 1 [facility] e 40 mg EC 7-09 tablet by ity of tablet 00:00: mouth 00 daily. Do Medical not Crush Branch or Chew DULOXETINE 2020-0 Yes [id number] Take 1 [facility] 30 mg 7-09 capsule by ity of capsule 00:00: mouth once [place] 00 daily Medical Branch metFORMIN 2020-0 Yes 1000mg Take 2 [facility] ers 500 mg 7-09 tablets by ity of tablet 00:00: mouth 2 (two) Medical times Branch daily with meals. POTASSIUM 2020-0 Yes [id number] Take 1 [facility] CHLORIDE 10 7-09 tablet by ity of mEq CR 00:00: mouth once [place] tablet 00 daily Medical Branch DULOXETINE 2020-0 Yes [id number] Take 1 [facility] 30 mg 7-09 capsule by ity of capsule 00:00: mouth once [place] 00 daily Medical Branch metFORMIN 2020-0 Yes 1000mg Take 2 [facility] ers 500 mg 7-09 tablets by ity of tablet 00:00: mouth 2 [place] (two) Medical times Branch daily with meals. DULOXETINE 2020-0 Yes [id number] Take 1 [facility] 30 mg 7-09 capsule by ity of capsule 00:00: mouth once [place] 00 daily Medical Branch metFORMIN 2020-0 Yes 1000mg Take 2 [facility] ers 500 mg 7-09 tablets by ity of tablet 00:00: mouth 2 [place] (two) Medical times Branch daily with meals. DULOXETINE 2020-0 Yes [id number] Take 1 [facility] 30 mg 7-09 capsule by ity of capsule 00:00: mouth once [place] 00 daily Medical Branch metFORMIN 2020-0 Yes 1000mg Take 2 [facility] ers 500 mg 7-09 tablets by ity of tablet 00:00: mouth 2 [place] (two) Medical times Branch daily with meals. DULOXETINE 2020-0 Yes [id number] Take 1 [facility] 30 mg 7-09 capsule by ity of capsule 00:00: mouth once [place] 00 daily Medical Branch metFORMIN 2020-0 Yes 1000mg Take 2 [facility] ers 500 mg 7-09 tablets by ity of tablet 00:00: mouth 2 [place] (two) Medical times Branch daily with meals. DULOXETINE 2020-0 Yes [id number] Take 1 [facility] 30 mg 7-09 capsule by ity of capsule 00:00: mouth once [place] 00 daily Medical Branch metFORMIN 2020-0 Yes 1000mg Take 2 [facility] ers 500 mg 7-09 tablets by ity of tablet 00:00: mouth 2 [place] (two) Medical times Branch daily with meals. DULOXETINE 2020-0 Yes [id number] Take 1 [facility] 30 mg 7-09 capsule by ity of capsule 00:00: mouth once [place] 00 daily Medical Branch metFORMIN 2020-0 Yes 1000mg Take 2 [facility] ers 500 mg 7-09 tablets by ity of tablet 00:00: mouth 2 [place] (two) Medical times Branch daily with meals. DULOXETINE 2020-0 Yes [id number] Take 1 [facility] 30 mg 7-09 capsule by ity of capsule 00:00: mouth once [place] 00 daily Medical Branch metFORMIN 2020-0 Yes 1000mg Take 2 [facility] ers 500 mg 7-09 tablets by ity of tablet 00:00: mouth [place] (two) Medical times Branch daily with meals. DULOXETINE 2020-0 Yes [id number] Take 1 [facility] 30 mg 7-09 capsule by ity of capsule 00:00: mouth once [place] 00 daily Medical Branch metFORMIN 2020-0 Yes 1000mg Take 2 [facility] ers 500 mg 7-09 tablets by ity of tablet 00:00: mouth 2 [place] (two) Medical times Branch daily with meals. DULOXETINE 2020-0 Yes [id number] Take 1 [facility] 30 mg 7-09 capsule by ity of capsule 00:00: mouth once [place] 00 daily Medical Branch metFORMIN 2020-0 Yes 1000mg Take 2 [facility] ers 500 mg 7-09 tablets by ity of tablet 00:00: mouth [place] (two) Medical times Branch daily with meals. DULOXETINE 2020-0 Yes [id number] Take 1 [facility] 30 mg 7-09 capsule by ity of capsule 00:00: mouth once [place] daily Medical Branch metFORMIN 2020-0 Yes 1000mg Take 2 [facility] ers 500 mg 7-09 tablets by ity of tablet 00:00: mouth [place] ([facility]) Medical times Branch daily with meals. DULOXETINE 2020-0 Yes [id number] Take 1 [facility] 30 mg 7-09 capsule by ity of capsule 00:00: mouth once [place] 00 daily Medical Branch metFORMIN 2020-0 Yes 1000mg Take 2 [facility] ers 500 mg 7-09 tablets by ity of tablet 00:00: mouth [place] (two) Medical times Branch daily with meals. DULOXETINE 2020-0 Yes [id number] Take 1 [facility] 30 mg 7-09 capsule by ity of capsule 00:00: mouth once [place] 00 daily Medical Branch metFORMIN 2020-0 Yes 1000mg Take 2 [facility] ers 500 mg 7-09 tablets by ity of tablet 00:00: mouth [place] (two) Medical times Branch daily with meals. DULOXETINE 2020-0 Yes [id number] Take 1 [facility] 30 mg 7-09 capsule by ity of capsule 00:00: mouth once [place] 00 daily Medical Branch metFORMIN 2020-0 Yes 1000mg Take 2 [facility] ers 500 mg 7-09 tablets by ity of tablet 00:00: mouth (two) Medical times Branch daily with meals. DULOXETINE 2020-0 Yes [id number] Take 1 [facility] 30 mg 7-09 capsule [...] daily with meals. DULOXETINE 2019-0 2020- No [id number] Take 1 [facility] 30 mg 12-04 capsule by ity of capsule 00:00: 00:00 mouth once [place] 00 :00 daily Medical Branch DULOXETINE 2019-0 2020- No [id number] Take 1 [facility] 30 mg 12-04 capsule by ity of capsule 00:00: 00:00 mouth once [place] 00 :00 daily Medical Branch pantoprazol 2019-0 2020- No [id number] 40mg Take 1 [facility] e 40 mg EC 12-04 tablet by ity of tablet 00:00: 00:00 mouth [place] 00 :00 daily. Do Medical not Crush Branch or Chew POTASSIUM 2020-0 2020- No [id number] Take 1 U nivers CHLORIDE 10 12-04 tablet by it y of mEq CR 00:00: 00:00 mouth once [place] tablet 00 :00 daily Medical Branch PANTOPRAZOL 2020-0 Yes [id number] Take 1 [facility] E 40 mg EC 6-08 tablet by ity of tablet 00:00: mouth once [place] 00 daily Medical Branch POTASSIUM 2020-0 Yes [id number] Take 1 [facility]i CHLORIDE 10 6-08 tablet by ity of mEq CR 00:00: mouth once [place] tablet 00 daily Medical Branch PANTOPRAZOL 2020-0 Yes [id number] Take 1 [facility] E 40 mg EC 6-08 tablet by ity of tablet 00:00: mouth once [place] 00 daily Medical Branch POTASSIUM 2020-0 Yes [id number] Take 1 [facility] CHLORIDE 10 6-08 [...] 5-15 tablet by ity of tablet 20:19: [facility] 33 daily. Medical Branch GABAPENTIN 2020-0 Yes [id number] TAKE 1 [facility] 800 mg 5-05 TABLET BY ity of tablet 00:00: [facility] 00 THREE Medical TIMES Branch DAILY GABAPENTIN 2020-0 Yes [id number] TAKE 1 [facility] 800 mg 5-05 TABLET BY ity of tablet 00:00: [facility] 00 THREE Medical TIMES Branch DAILY GABAPENTIN 2020-0 Yes [id number] TAKE 1 [facility] 800 mg 5-05 TABLET BY ity of tablet 00:00: [facility] 00 THREE Medical TIMES Branch DAILY GABAPENTIN 2020-0 Yes [id number] TAKE 1 [facility] 800 mg 5-05 TABLET BY ity of tablet 00:00: [facility] 00 THREE Medical TIMES Branch DAILY GABAPENTIN 2020-0 Yes [id number] TAKE 1 [facility] 800 mg 5-05 TABLET BY ity of tablet 00:00: [facility] 00 THREE Medical TIMES Branch DAILY GABAPENTIN 2020-0 Yes [id number] TAKE 1 [facility] 800 mg 5-05 TABLET BY ity of tablet 00:00: [facility] 00 THREE Medical TIMES Branch DAILY GABAPENTIN 2020-0 Yes [id number] TAKE 1 [facility] 800 mg 5-05 TABLET BY ity of tablet 00:00: [facility] 00 THREE Medical TIMES Branch DAILY GABAPENTIN 2020-0 Yes [id number] TAKE 1 [facility] 800 mg 5-05 TABLET BY ity of tablet 00:00: [facility] 00 THREE Medical TIMES Branch DAILY GABAPENTIN 2020-0 Yes [id number] TAKE 1 [facility] 800 mg 5-05 TABLET BY ity of tablet 00:00: [facility] 00 [facility] Medical TIMES Branch DAILY GABAPENTIN 2020-0 Yes [id number] TAKE 1 [facility] 800 mg 5-05 TABLET BY ity of tablet 00:00: [facility] 00 [facility] Medical TIMES Branch DAILY GABAPENTIN 2020-0 2020- No [id number] TAKE 1 [facility] 800 mg 5-05 07-15 TABLET BY ity of tablet 00:00: 00:00 [facility] 00 :00 [facility] Medical TIMES Branch DAILY metoprolol 2020-0 Yes [...] mg 00 on Fri Medical 08/16/19 at [place] 2100, Until Discontinu ed, Routine metoprolol 2020-0 Yes 50mg 50 mg, Unive rs tartrate 3-21 Oral, BID, ity o f (LOPRESSOR) 01:00: First dose [place] tablet 50 00 on Fri Medical mg 08/16/19 at [place] 2000, Until Discontinu ed, Routine metoprolol 2020-0 Yes [id number] 100mg Take 1 [facility] succinate 3-21 07 tablet by ity o f XL 100 mg 00:00: mouth [place] 24 hr 00 daily. Medical tablet [place] azithromyci 2020-0 Yes [id number] 250mg Take 1 [facility] n 250 mg 3-21 07 tablet by ity of tablet 00:00: mouth [place] 00 daily. Medical Take 250 Branch mg tablet once daily metoprolol 2020-0 Yes [id number] 100mg Take 1 [facility] succinate 3-21 07 tablet by ity o f XL 100 mg 00:00: mouth [place] 24 hr 00 daily. Medical tablet [place] azithromyci 2020-0 Yes [id number] 250mg Take 1 [facility] n 250 mg 3-21 07 tablet by ity of tablet 00:00: mouth [place] 00 daily. Medical Take 250 Branch mg tablet once daily metoprolol 2020-0 Yes [id number] 100mg Take 1 [facility] succinate 3-21 07 tablet by ity o f XL 100 mg 00:00: mouth [place] 24 hr 00 daily. Medical tablet [place] azithromyci 2020-0 Yes [id number] 250mg Take 1 [facility] n 250 mg 3-21 07 tablet by ity of tablet 00:00: mouth [place] 00 daily. Medical Take 250 Branch mg tablet once daily metoprolol 2020-0 Yes [id number] 100mg Take 1 [facility] succinate 3-21 07 tablet by ity o f XL 100 mg 00:00: mouth [place] 24 hr 00 daily. Medical tablet [place] azithromyci 2020-0 Yes [id number] 250mg Take 1 [facility] n 250 mg 3-21 07 tablet by ity of tablet 00:00: mouth [place] 00 daily. Medical Take 250 Branch mg tablet once daily metoprolol 2020-0 Yes [id number] 100mg Take 1 [facility] succinate 3-21 07 tablet by ity o f XL 100 mg 00:00: mouth [place] 24 hr 00 daily. Medical tablet Branch azithromyci 2020-0 Yes [id number] 250mg Take 1 [facility] n 250 mg 3-21 07 tablet by ity of tablet 00:00: mouth [place] 00 daily. Medical Take 250 Branch mg tablet once daily metoprolol 2020-0 Yes [id number] 100mg Take 1 [facility] succinate 3-21 07 tablet by ity o f XL 100 mg 00:00: mouth [place] 24 hr 00 daily. Medical tablet Branch azithromyci 2020-0 Yes [id number] 250mg Take 1 [facility] n 250 mg 3-21 07 tablet by ity of tablet 00:00: mouth [place] 00 daily. Medical Take 250 Branch mg tablet once daily metoprolol 2020-0 Yes [id number] 100mg Take 1 [facility] succinate 3-21 07 tablet by ity o f XL 100 mg 00:00: mouth [place] 24 hr 00 daily. Medical tablet Branch azithromyci 2020-0 Yes [id number] 250mg Take 1 [facility] n 250 mg 3-21 07 tablet by ity of tablet 00:00: mouth [place] 00 daily. Medical Take 250 Branch mg tablet once daily metoprolol 2020-0 Yes [id number] 100mg Take 1 [facility] succinate 3-21 07 tablet by ity o f XL 100 mg 00:00: mouth [place] 24 hr 00 daily. Medical tablet Branch azithromyci 2020-0 Yes [id number] 250mg Take 1 [facility] n 250 mg 3-21 07 tablet by ity of tablet 00:00: mouth [place] 00 daily. Medical Take 250 Branch mg tablet once daily metoprolol 2020-0 Yes [id number] 100mg Take 1 [facility] succinate 3-21 07 tablet by ity o f XL 100 mg 00:00: mouth [place] 24 hr 00 daily. Medical tablet Branch azithromyci 2020-0 Yes [id number] 250mg Take 1 [facility] n 250 mg 3-21 07 tablet by ity of tablet 00:00: mouth [place] 00 daily. Medical Take 250 Branch mg tablet once daily metoprolol 2020-0 Yes [id number] 100mg Take 1 [facility] succinate 3-21 07 tablet by ity o f XL 100 mg 00:00: mouth [place] 24 hr 00 daily. Medical tablet Branch azithromyci 2020-0 Yes [id number] 250mg Take 1 [facility] n 250 mg 3-21 07 tablet by ity of tablet 00:00: mouth [place] 00 daily. Medical Take 250 Branch mg tablet once daily metoprolol 2020-0 Yes [id number] 100mg Take 1 [facility] succinate 3-21 07 tablet by ity o f XL 100 mg 00:00: mouth [place] 24 hr 00 daily. Medical tablet Branch azithromyci 2020-0 Yes [id number] 250mg Take 1 [facility] n 250 mg 3-21 07 tablet by ity of tablet 00:00: mouth [place] 00 daily. Medical Take 250 Branch mg tablet once daily metoprolol 2020-0 Yes [id number] 100mg Take 1 [facility] succinate 3-21 07 tablet by ity o f XL 100 mg 00:00: mouth [place] 24 hr 00 daily. Medical tablet Branch azithromyci 2020-0 Yes [id number] 250mg Take 1 [facility] n 250 mg 3-21 07 tablet by ity of tablet 00:00: mouth [place] 00 daily. Medical Take 250 Branch mg tablet once daily metoprolol 2020-0 Yes [id number] 100mg Take 1 [facility] succinate 3-21 07 tablet by ity o f XL 100 mg 00:00: mouth [place] 24 hr 00 daily. Medical tablet Branch azithromyci 2020-0 Yes [id number] 250mg Take 1 [facility] n 250 mg 3-21 07 tablet by ity of tablet 00:00: mouth [place] 00 daily. Medical Take 250 Branch mg tablet once daily metoprolol 2020-0 Yes [id number] 100mg Take 1 [facility] succinate 3-21 07 tablet by ity o f XL 100 mg 00:00: mouth [place] 24 hr 00 daily. Medical tablet Branch azithromyci 2020-0 Yes [id number] 250mg Take 1 [facility] n 250 mg 3-21 07 tablet by ity of tablet 00:00: mouth [place] 00 daily. Medical Take 250 Branch mg tablet once daily metoprolol 2020-0 Yes [id number] 100mg Take 1 [facility] succinate 3-21 tablet by ity o f XL 100 mg 00:00: mouth [place] 24 hr 00 daily. Medical tablet Branch azithromyci 2020-0 Yes [id number] 250mg Take 1 [facility] n 250 mg 3-21 tablet by ity of tablet 00:00: mouth [place] 00 daily. Medical Take 250 Branch mg tablet once daily metoprolol 2020-0 Yes [id number] 100mg Take 1 [facility] succinate 3-21 tablet by ity o f XL 100 mg 00:00: mouth [place] 24 hr 00 daily. Medical tablet Branch azithromyci 2020-0 Yes [id number] 250mg Take 1 [facility] n 250 mg 3-21 tablet by ity of tablet 00:00: mouth [place] 00 daily. Medical Take 250 Branch mg tablet once daily metoprolol 2020-0 Yes [id number] 100mg Take 1 [facility] succinate 3-21 tablet by ity o f XL 100 mg 00:00: mouth [place] 24 hr 00 daily. Medical tablet Branch azithromyci 2020-0 Yes [id number] 250mg Take 1 [facility] n 250 mg 3-21 tablet by ity of tablet 00:00: mouth [place] 00 daily. Medical Take 250 Branch mg tablet once daily metoprolol 2020-0 Yes [id number] 100mg Take 1 [facility] succinate 3-21 tablet by ity o f XL 100 mg 00:00: mouth [place] 24 hr 00 daily. Medical tablet Branch metoprolol 2020-0 Yes [id number] 100mg Take 1 [facility] succinate 3-21 tablet by ity o f XL 100 mg 00:00: mouth [place] 24 hr 00 daily. Medical tablet Branch metoprolol 2020-0 Yes [id number] 100mg Take 1 [facility] succinate 3-21 tablet by ity o f XL 100 mg 00:00: mouth [place] 24 hr 00 daily. Medical tablet Branch metoprolol 2020-0 Yes [id number] 100mg Take 1 [facility] succinate 3-21 tablet by ity o f XL 100 mg 00:00: mouth [place] 24 hr 00 daily. Medical tablet Branch metoprolol 2020-0 Yes [id number] 100mg Take 1 [facility] succinate 3-21 tablet by ity o f XL 100 mg 00:00: mouth [place] 24 hr 00 daily. Medical tablet Branch metoprolol 2020-0 Yes [id number] 100mg Take 1 [facility] succinate 3-21 tablet by ity o f XL 100 mg 00:00: mouth [place] 24 hr 00 daily. Medical tablet Branch metoprolol 2020-0 Yes [id number] 100mg Take 1 [facility] succinate 3-21 tablet by ity o f XL 100 mg 00:00: mouth [place] 24 hr 00 daily. Medical tablet Branch metoprolol 2020-0 Yes [id number] 100mg Take 1 [facility] succinate 3-21 tablet by ity o f XL 100 mg 00:00: mouth [place] 24 hr 00 daily. Medical tablet Branch metoprolol 2020-0 Yes [id number] 100mg Take 1 [facility] succinate 3-21 tablet by ity o f XL 100 mg 00:00: mouth [place] 24 hr 00 daily. Medical tablet Branch metoprolol 2020-0 Yes [id number] 100mg Take 1 [facility] succinate 3-21 tablet by ity o f XL 100 mg 00:00: mouth [place] 24 hr 00 daily. Medical tablet Branch metoprolol 2020-0 Yes [id number] 100mg Take 1 [facility] succinate 3-21 tablet by ity o f XL 100 mg 00:00: mouth [place] 24 hr 00 daily. Medical tablet Branch metoprolol 2020-0 Yes [id number] 100mg Take 1 [facility] succinate 3-21 tablet by ity o f XL 100 mg 00:00: mouth [place] 24 hr 00 daily. Medical tablet Branch metoprolol 2020-0 Yes [id number] 100mg Take 1 [facility] succinate 3-21 tablet by ity o f XL 100 mg 00:00: mouth [place] 24 hr 00 daily. Medical tablet Branch metoprolol 2020-0 Yes [id number] 100mg Take 1 [facility] succinate 3-21 tablet by ity o f XL 100 mg 00:00: mouth [place] 24 hr 00 daily. Medical tablet Branch metoprolol 2020-0 Yes [id number] 100mg Take 1 [facility] succinate 3-21 tablet by ity o f XL 100 mg 00:00: mouth [place] 24 hr 00 daily. Medical tablet Branch metoprolol 2020-0 Yes [id number] 100mg Take 1 [facility] succinate 3-21 tablet by ity o f XL 100 mg 00:00: mouth [place] 24 hr 00 daily. Medical tablet Branch metoprolol 2020-0 Yes [id number] 100mg Take 1 [facility] succinate 3-21 tablet by ity o f XL 100 mg 00:00: mouth [place] 24 hr 00 daily. Medical tablet Branch metoprolol 2020-0 Yes [id number] 100mg Take 1 [facility] succinate 3-21 tablet by ity o f XL 100 mg 00:00: mouth [place] 24 hr 00 daily. Medical tablet Branch metoprolol 2020-0 Yes [id number] 100mg Take 1 [facility] succinate 3-21 tablet by ity o f XL 100 mg 00:00: mouth [place] 24 hr 00 daily. Medical tablet Branch metoprolol 2020-0 Yes [id number] 100mg Take 1 [facility] succinate 3-21 tablet by ity o f XL 100 mg 00:00: mouth [place] 24 hr 00 daily. Medical tablet Branch metoprolol 2020-0 Yes [id number] 100mg Take 1 [facility] succinate 3-21 tablet by ity o f XL 100 mg 00:00: mouth [place] 24 hr 00 daily. Medical tablet Branch metoprolol 2020-0 Yes [id number] 100mg Take 1 [facility] succinate 3-21 tablet by ity o f XL 100 mg 00:00: mouth [place] 24 hr 00 daily. Medical tablet Branch metoprolol 2020-0 Yes [id number] 100mg Take 1 [facility] succinate 3-21 tablet by ity o f XL 100 mg 00:00: mouth [place] 24 hr 00 daily. Medical tablet Branch metoprolol 2020-0 Yes [id number] 100mg Take 1 [facility] succinate 3-21 tablet by ity o f XL 100 mg 00:00: mouth [place] 24 hr 00 daily. Medical tablet Branch metoprolol 2020-0 Yes [id number] 100mg Take 1 [facility] succinate 3-21 tablet by ity o f XL 100 mg 00:00: mouth [place] 24 hr 00 daily. Medical tablet Branch metoprolol 2020-0 Yes [id number] 100mg Take 1 [facility] succinate 3-21 07 tablet by ity o f XL 100 mg 00:00: mouth [place] 24 hr 00 daily. Medical tablet Branch azithromyci 2020-0 Yes [id number] 250mg Take 1 [facility] n 250 mg 3-21 07 tablet by ity of tablet 00:00: mouth [place] 00 daily. Medical Take 250 Branch mg tablet once daily metoprolol 2020-0 Yes [id number] 100mg Take 1 [facility] succinate 3-21 07 tablet by ity o f XL 100 mg 00:00: mouth [place] 24 hr 00 daily. Medical tablet Branch azithromyci 2019-0 Yes [id number] 250mg Take 1 [facility] n 250 mg 3-21 07 tablet by ity of tablet 00:00: mouth [place] 00 daily. Medical Take 250 Branch mg tablet once daily metoprolol 2020-0 2020- No [id number] 100mg Take 1 [facility] succinate 3-21 01-11 tablet by ity of XL 100 mg 00:00: 00:00 mouth [place] 24 hr 00 :00 daily. Medical tablet Branch azithromyci 2020-0 2019- No [id number] 250mg Take 1 [facility] n 250 mg 3-21 08-14 tablet by ity o f tablet 00:00: 00:00 mouth [place] 00 :00 daily. Medical Take 250 Branch mg tablet once daily azithromyci 2019-0 2020- No [id number] 250mg Take 1 [facility] n 250 mg [...] of tablet 16:51: mouth [place] 31 daily. [facility] Branch aspirin 81 2020-0 Yes 81mg Take 1 Unive rs mg chewable 3-20 tablet by ity of tablet 16:51: mouth [place] 31 daily. [facility] Branch aspirin 81 2020-0 Yes 81mg Take 1 Unive rs mg chewable 3-20 tablet by ity of tablet 16:51: mouth [place] 31 daily. [facility] Branch aspirin 81 2020-0 Yes 81mg Take 1 Unive rs mg chewable 3-20 tablet by ity of tablet 16:51: mouth [place] 31 daily. [facility] Branch aspirin 81 2020-0 Yes 81mg Take 1 Unive rs mg chewable 3-20 tablet by ity of tablet 16:51: mouth [place] 31 daily. [facility] Branch aspirin 81 2020-0 Yes 81mg Take 1 Unive rs mg chewable 3-20 tablet by ity of tablet 16:51: mouth [place] 31 daily. [facility] Branch aspirin 81 2020-0 Yes 81mg Take 1 Unive rs mg chewable 3-20 tablet by ity of tablet 16:51: mouth [place] 31 daily. [facility] Branch aspirin 81 2020-0 Yes 81mg Take 1 Unive rs mg chewable 3-20 tablet by ity of tablet 16:51: mouth [place] 31 daily. [facility] aspirin 81 2020-0 Yes 81mg Take 1 Unive rs mg chewable 3-20 tablet by ity of tablet 16:51: mouth [place] 31 daily. [facility] aspirin 2020- No 81mg Take 81 mg Uni vers (ASPIRIN 08-1520 by mouth ity of LOW DOSE) 16:51: 00:00 daily. [place] 81 mg EC 31 :00 Medical [facility] [place] LORazepam 2019- No 1mg 1 mg, Univer s (ATIVAN) 08-15 Oral, ity of tablet 1 mg 00:30: 23:58 ONCE, 1 [place] 00 :00 dose, Esme [facility] 08/15/19 at [place] 1930, Routine clopidogreL Yes [id number] 75mg Take 1 Univers (PLAVIX) 75 3-20 tablet by ity of mg tablet 00:00: mouth [place] 00 daily. [facility] insulin NPH Yes [id number] Inject 84 Univers and regular 3-20 units AM, ity of human 70-30 00:00: 84 units [place] (NOVOLIN 00 PM Medical 70/30 U-100 [place] INSULIN) 100 unit/mL (70-30) injection atorvastati Yes [id number] 80mg Take 1 Univers n 80 mg 3-20 07 tablet by ity of tablet 00:00: mouth at [place] 00 bedtime. [facility] clopidogreL 2019-0 Yes [id number] 75mg Take 1 Univers (PLAVIX) 75 3-20 tablet by ity of mg tablet 00:00: mouth [place] 00 daily. [facility] insulin NPH Yes [id number] Inject 84 Univers and regular 3-20 units AM, ity of human 70-30 00:00: 84 units [place] (NOVOLIN 00 PM Medical 70/30 U-100 [place] INSULIN) 100 unit/mL (70-30) injection atorvastati 2019- Yes [id number] 80mg Take 1 Univers n 80 mg 3-20 07 tablet by ity of tablet 00:00: mouth at [place] 00 bedtime. [facility] clopidogreL 2019-0 Yes [id number] 75mg Take 1 Univers (PLAVIX) 75 3-20 tablet by ity of mg tablet 00:00: mouth [place] 00 daily. [facility] insulin NPH Yes [id number] Inject 84 Univers and regular 3-20 units AM, ity of human 70-30 00:00: 84 units [place] (NOVOLIN 00 PM Medical 70/30 U-100 Branch INSULIN) 100 unit/mL (70-30) injection atorvastati 2020-0 Yes [id number] 80mg Take 1 [facility] n 80 mg 3-20 07 tablet by ity of tablet 00:00: mouth at 00 bedtime. Medical Branch clopidogreL 2020-0 Yes [id number] 75mg Take 1 Univers (PLAVIX) 75 3-20 tablet by ity of mg tablet 00:00: mouth daily. Medical Branch insulin NPH 2020-0 Yes [id number] Inject 84 Univers and regular 3-20 units AM, ity of human 7030 00:00: 84 units [place] (NOVOLIN 00 PM Medical 70/30 U-100 Branch INSULIN) 100 unit/mL (-30) injection atorvastati 2019-0 Yes [id number] 80mg Take 1 [facility] n 80 mg 3-20 07 tablet by ity of tablet 00:00: mouth at bedtime. Medical Branch clopidogreL 2020-0 Yes [id number] 75mg Take 1 [facility] (PLAVIX) 75 3-20 tablet by ity of mg tablet 00:00: mouth daily. Medical Branch insulin NPH 2019-0 Yes [id number] Inject 84 Univers and regular 3-20 units AM, ity of human 00:00: 84 units [place] (NOVOLIN 00 PM Medical 70/30 U-100 Branch INSULIN) 100 unit/mL (30) injection atorvastati 2019-0 Yes [id number] 80mg Take 1 Univers n 80 mg 3-20 07 tablet by ity of tablet 00:00: mouth at bedtime. Medical Branch clopidogreL 2020-0 Yes [id number] 75mg Take 1 Univers (PLAVIX) 75 3-20 tablet by ity of mg tablet 00:00: mouth daily. Medical Branch insulin NPH 2020-0 Yes [id number] Inject 84 Univers and regular 3-20 units AM, ity of human 30 00:00: 84 units [place] (NOVOLIN 00 PM Medical 70/30 U-100 Branch INSULIN) 100 unit/mL (70-30) injection atorvastati 2020-0 Yes [id number] 80mg Take 1 Univers n 80 mg 3-20 07 tablet by ity of tablet 00:00: mouth at [place] 00 bedtime. Medical Branch clopidogreL 2020-0 Yes [id number] 75mg Take 1 Univers (PLAVIX) 75 3-20 tablet by ity of mg tablet 00:00: mouth [place] 00 daily. Medical Branch insulin NPH 2020-0 Yes [id number] Inject 84 Univers and regular 3-20 units AM, ity of human 70-30 00:00: 84 units [place] (NOVOLIN 00 PM Medical 70/30 U-100 Branch INSULIN) 100 unit/mL (70-30) injection atorvastati 2020-0 Yes [id number] 80mg Take 1 Univers n 80 mg 3-20 07 tablet by ity of tablet 00:00: mouth at [place] 00 bedtime. Medical Branch clopidogreL 2020-0 Yes [id number] 75mg Take 1 Univers (PLAVIX) 75 3-20 tablet by ity of mg tablet 00:00: mouth [place] 00 daily. Medical Branch insulin NPH 2019-0 Yes [id number] Inject 84 Univers and regular 3-20 units AM, ity of human 7030 00:00: 84 units [place] (NOVOLIN 00 PM Medical 70/30 U-100 Branch INSULIN) 100 unit/mL (70-30) injection atorvastati 2019-0 Yes [id number] 80mg Take 1 Univers n 80 mg 3-20 07 tablet by ity of tablet 00:00: mouth at [place] 00 bedtime. Medical Branch clopidogreL 2020-0 Yes [id number] 75mg Take 1 Univers (PLAVIX) 75 3-20 tablet by ity of mg tablet 00:00: mouth 00 daily. Medical Branch insulin NPH 2019-0 Yes [id number] Inject 84 Univers and regular 3-20 units AM, ity of human 7030 00:00: 84 units [place] (NOVOLIN 00 PM Medical 70/30 U-100 Branch INSULIN) 100 unit/mL (70-30) injection atorvastati 2020-0 Yes [id number] 80mg Take 1 Univers n 80 mg 3-20 07 tablet by ity of tablet 00:00: mouth at [place] 00 bedtime. Medical Branch clopidogreL 2020-0 Yes [id number] 75mg Take 1 Univers (PLAVIX) 75 3-20 tablet by ity of mg tablet 00:00: mouth [place] 00 daily. Medical Branch insulin NPH 2019-0 Yes [id number] Inject 84 Univers and regular 3-20 units AM, ity of human 7030 00:00: 84 units [place] (NOVOLIN 00 PM Medical 70/30 U-100 Branch INSULIN) 100 unit/mL (70-30) injection atorvastati 2020-0 Yes [id number] 80mg Take 1 Univers n 80 mg 3-20 07 tablet by ity of tablet 00:00: mouth at [place] 00 bedtime. Medical Branch clopidogreL 2020-0 Yes [id number] 75mg Take 1 Univers (PLAVIX) 75 3-20 tablet by ity of mg tablet 00:00: mouth [place] 00 daily. Medical Branch insulin NPH 2020-0 Yes [id number] Inject 84 Univers and regular 3-20 units AM, ity of human 70-30 00:00: 84 units [place] (NOVOLIN 00 PM Medical 70/30 U-100 Branch INSULIN) 100 unit/mL (70-30) injection atorvastati 2020-0 Yes [id number] 80mg Take 1 Univers n 80 mg 3-20 07 tablet by ity of tablet 00:00: mouth at [place] 00 bedtime. Medical Branch clopidogreL 2020-0 Yes [id number] 75mg Take 1 Univers (PLAVIX) 75 3-20 tablet by ity of mg tablet 00:00: mouth [place] 00 daily. Medical Branch insulin NPH 2019-0 Yes [id number] Inject 84 Univers and regular 3-20 units AM, ity of human 7030 00:00: 84 units [place] (NOVOLIN 00 PM Medical 70/30 U-100 Branch INSULIN) 100 unit/mL (70-30) injection atorvastati 2020-0 Yes [id number] 80mg Take 1 Univers n 80 mg 3-20 07 tablet by ity of tablet 00:00: mouth at [place] 00 bedtime. Medical Branch clopidogreL 2020-0 Yes [id number] 75mg Take 1 Univers (PLAVIX) 75 3-20 tablet by ity of mg tablet 00:00: mouth [place] 00 daily. Medical Branch insulin NPH 2020-0 Yes [id number] Inject 84 Univers and regular 3-20 units AM, ity of human 70-30 00:00: 84 units [place] (NOVOLIN 00 PM Medical 70/30 U-100 Branch INSULIN) 100 unit/mL (70-30) injection atorvastati 2020-0 Yes [id number] 80mg Take 1 Univers n 80 mg 3-20 07 tablet by ity of tablet 00:00: mouth at [place] 00 bedtime. Medical Branch clopidogreL 2020-0 Yes [id number] 75mg Take 1 Univers (PLAVIX) 75 3-20 tablet by ity of mg tablet 00:00: mouth [place] 00 daily. Medical Branch insulin NPH 2019-0 Yes [id number] Inject 84 Univers and regular 3-20 units AM, ity of human 7030 00:00: 84 units [place] (NOVOLIN 00 PM Medical 70/30 U-100 Branch INSULIN) 100 unit/mL (70-30) injection atorvastati 2020-0 Yes [id number] 80mg Take 1 Univers n 80 mg 3-20 07 tablet by ity of tablet 00:00: mouth at bedtime. [facility] Branch clopidogreL 2020-0 Yes [id number] 75mg Take 1 Univers (PLAVIX) 75 3-20 tablet by ity of mg tablet 00:00: mouth 00 daily. [facility] Branch insulin NPH 2019-0 Yes [id number] Inject 84 Univers and regular 3-20 units AM, ity of human 00:00: 84 units [place] (NOVOLIN 00 PM Medical 70/30 U-100 Branch INSULIN) 100 unit/mL (70-30) injection atorvastati 2019-0 Yes [id number] 80mg Take 1 Univers n 80 mg 3-20 tablet by ity of tablet 00:00: mouth at bedtime. [facility] Branch clopidogreL 2020-0 Yes [id number] 75mg Take 1 Univers (PLAVIX) 75 3-20 tablet by ity of mg tablet 00:00: mouth daily. [facility] Branch insulin NPH 2019-0 Yes [id number] Inject 84 Univers and regular 3-20 units AM, ity of human 00:00: 84 units [place] (NOVOLIN 00 PM Medical 70/30 U-100 Branch INSULIN) 100 unit/mL (70-30) injection atorvastati 2020-0 Yes [id number] 80mg Take 1 Univers n 80 mg 3-20 tablet by ity of tablet 00:00: mouth at bedtime. [facility] Branch clopidogreL 2020-0 Yes [id number] 75mg Take 1 Univers (PLAVIX) 75 3-20 tablet by ity of mg tablet 00:00: mouth 00 daily. [facility] Branch insulin NPH 2019-0 Yes [id number] Inject 84 Univers and regular 3-20 units AM, ity of human 70-30 00:00: 84 units [place] (NOVOLIN 00 PM Medical 70/30 U-100 Branch INSULIN) 100 unit/mL (70-30) injection atorvastati 2020-0 Yes [id number] 80mg Take 1 Univers n 80 mg 3-20 tablet by ity of tablet 00:00: mouth at [place] 00 bedtime. Medical Branch clopidogreL 2020-0 Yes [id number] 75mg Take 1 Univers (PLAVIX) 75 3-20 tablet by ity of mg tablet 00:00: mouth [place] 00 daily. Medical Branch insulin NPH 2020-0 Yes [id number] Inject 84 Univers and regular 3-20 units AM, ity of human 7030 00:00: 84 units [place] (NOVOLIN 00 PM Medical 70/30 U-100 Branch INSULIN) 100 unit/mL (70-30) injection atorvastati 2020-0 Yes [id number] 80mg Take 1 Univers n 80 mg 3-20 tablet by ity of tablet 00:00: mouth at bedtime. Medical Branch clopidogreL 2019-0 Yes [id number] 75mg Take 1 [facility] (PLAVIX) 75 3-20 tablet by ity of mg tablet 00:00: mouth 00 daily. Medical Branch insulin NPH 2019-0 Yes [id number] Inject 84 Univers and regular 3-20 units AM, ity of human 00:00: 84 units [place] (NOVOLIN 00 PM Medical 70/30 U-100 Branch INSULIN) 100 unit/mL (70-30) injection atorvastati 2019-0 Yes [id number] 80mg Take 1 Univers n 80 mg 3-20 tablet by ity of tablet 00:00: mouth at [place] 00 bedtime. Medical Branch clopidogreL 2020-0 Yes [id number] 75mg Take 1 Univers (PLAVIX) 75 3-20 tablet by ity of mg tablet 00:00: mouth [place] 00 daily. Medical Branch insulin NPH 2020-0 Yes [id number] Inject 84 [facility] and regular 3-20 units AM, ity of human 7030 00:00: 84 units [place] (NOVOLIN 00 PM Medical 70/30 U-100 Branch INSULIN) 100 unit/mL (70-30) injection atorvastati 2020-0 Yes [id number] 80mg Take 1 Univers n 80 mg 3-20 tablet by ity of tablet 00:00: mouth at [place] 00 bedtime. Medical Branch clopidogreL 2020-0 Yes [id number] 75mg Take 1 Univers (PLAVIX) 75 3-20 tablet by ity of mg tablet 00:00: mouth [place] 00 daily. Medical Branch insulin NPH 2020-0 Yes [id number] Inject 84 Univers and regular 3-20 units AM, ity of human 70-30 00:00: 84 units [place] (NOVOLIN 00 PM Medical 70/30 U-100 Branch INSULIN) 100 unit/mL (70-30) injection atorvastati 2020-0 Yes [id number] 80mg Take 1 Univers n 80 mg 3-20 tablet by ity of tablet 00:00: mouth at [place] 00 bedtime. Medical Branch clopidogreL 2020-0 Yes [id number] 75mg Take 1 Univers (PLAVIX) 75 3-20 tablet by ity of mg tablet 00:00: mouth 00 daily. Medical Branch insulin NPH 2019-0 Yes [id number] Inject 84 [facility] and regular 3-20 units AM, ity of human 7030 00:00: 84 units [place] (NOVOLIN 00 PM Medical 70/30 U-100 Branch INSULIN) 100 unit/mL (70-30) injection atorvastati 2020-0 Yes [id number] 80mg Take 1 Univers n 80 mg 3-20 tablet by ity of tablet 00:00: mouth at [place] 00 bedtime. Medical Branch clopidogreL 2020-0 Yes [id number] 75mg Take 1 [facility] (PLAVIX) 75 3-20 tablet by ity of mg tablet 00:00: mouth daily. Medical Branch insulin NPH 2020-0 Yes [id number] Inject 84 [facility] and regular 3-20 units AM, ity of human 7030 00:00: 84 units [place] (NOVOLIN 00 PM Medical 70/30 U-100 Branch INSULIN) 100 unit/mL (70-30) injection atorvastati 2020-0 Yes [id number] 80mg Take 1 Univers n 80 mg 3-20 tablet by ity of tablet 00:00: mouth at [place] 00 bedtime. [facility] Branch clopidogreL 2020-0 Yes [id number] 75mg Take 1 Univers (PLAVIX) 75 3-20 tablet by ity of mg tablet 00:00: mouth [place] 00 daily. Medical Branch insulin NPH 2020-0 Yes [id number] Inject 84 [facility] and regular 3-20 units AM, ity of human 7030 00:00: 84 units [place] (NOVOLIN 00 PM Medical 70/30 U-100 Branch INSULIN) 100 unit/mL (70-30) injection atorvastati 2020-0 Yes [id number] 80mg Take 1 Univers n 80 mg 3-20 tablet by ity of tablet 00:00: mouth at [place] 00 bedtime. [facility] Branch clopidogreL 2020-0 Yes [id number] 75mg Take 1 [facility] (PLAVIX) 75 3-20 tablet by ity of mg tablet 00:00: mouth [place] 00 daily. Medical Branch insulin NPH 2020-0 Yes [id number] Inject 84 [facility] and regular 3-20 units AM, ity of human 7030 00:00: 84 units [place] (NOVOLIN 00 PM Medical 70/30 U-100 Branch INSULIN) 100 unit/mL (70-30) injection atorvastati 2020-0 Yes [id number] 80mg Take 1 [facility] n 80 mg 3-20 tablet by ity of tablet 00:00: mouth at [place] 00 bedtime. [facility] Branch clopidogreL 2020-0 Yes [id number] 75mg Take 1 [facility] (PLAVIX) 75 3-20 tablet by ity of mg tablet 00:00: mouth [place] 00 daily. Medical [facility] insulin NPH 2019-0 Yes [id number] Inject 84 [facility] and regular 3-20 units AM, ity of human 00:00: 84 units [place] (NOVOLIN 00 PM Medical 70/30 U-100 Branch INSULIN) 100 unit/mL (70-30) injection atorvastati 2020-0 Yes [id number] 80mg Take 1 [facility] n 80 mg 3-20 tablet by ity of tablet 00:00: mouth at [place] 00 bedtime. [facility] clopidogreL 2020-0 Yes [id number] 75mg Take 1 [facility] (PLAVIX) 75 3-20 tablet by ity of mg tablet 00:00: mouth [place] 00 daily. Medical [facility] insulin NPH 2020-0 Yes [id number] Inject 84 [facility] and regular 3-20 units AM, ity of human 7030 00:00: 84 units [place] (NOVOLIN 00 PM Medical 70/30 U-100 Branch INSULIN) 100 unit/mL (70-30) injection atorvastati 2020-0 Yes [id number] 80mg Take 1 [facility] n 80 mg 3-20 tablet by ity of tablet 00:00: mouth at [place] 00 bedtime. [facility] clopidogreL 2020-0 Yes [id number] 75mg Take 1 [facility] (PLAVIX) 75 3-20 tablet by ity of mg tablet 00:00: mouth [place] 00 daily. Medical [facility] insulin NPH 2020-0 Yes [id number] Inject 84 [facility] and regular 3-20 units AM, ity of human 70-30 00:00: 84 units [place] (NOVOLIN 00 PM Medical 70/30 U-100 Branch INSULIN) 100 unit/mL (70-30) injection atorvastati 2020-0 Yes [id number] 80mg Take 1 [facility] n 80 mg 3-20 tablet by ity of tablet 00:00: mouth at [place] 00 bedtime. [facility] clopidogreL 2020-0 Yes [id number] 75mg Take 1 [facility] (PLAVIX) 75 3-20 tablet by ity of mg tablet 00:00: mouth 00 daily. Medical Branch insulin NPH 2019-0 Yes [id number] Inject 84 [facility] and regular 3-20 units AM, ity of human 7030 00:00: 84 units [place] (NOVOLIN 00 PM Medical 70/30 U-100 Branch INSULIN) 100 unit/mL (70-30) injection atorvastati 2020-0 Yes [id number] 80mg Take 1 [facility] n 80 mg 3-20 tablet by ity of tablet 00:00: mouth at [place] 00 bedtime. Medical [facility] clopidogreL 2020-0 Yes [id number] 75mg Take 1 [facility] (PLAVIX) 75 3-20 tablet by ity of mg tablet 00:00: mouth daily. Medical Branch insulin NPH 2020-0 Yes [id number] Inject 84 [facility] and regular 3-20 units AM, ity of human 7030 00:00: 84 units [place] (NOVOLIN 00 PM Medical 70/30 U-100 Branch INSULIN) 100 unit/mL (70-30) injection atorvastati 2020-0 Yes [id number] 80mg Take 1 [facility] n 80 mg 3-20 tablet by ity of tablet 00:00: mouth at [place] 00 bedtime. [facility] clopidogreL 2020-0 Yes [id number] 75mg Take 1 [facility] (PLAVIX) 75 3-20 tablet by ity of mg tablet 00:00: mouth [place] 00 daily. Medical [facility] insulin NPH 2020-0 Yes [id number] Inject 84 [facility] and regular 3-20 units AM, ity of human 70-30 00:00: 84 units [place] (NOVOLIN 00 PM Medical 70/30 U-100 Branch INSULIN) 100 unit/mL (70-30) injection atorvastati 2020-0 Yes [id number] 80mg Take 1 [facility] n 80 mg 3-20 tablet by ity of tablet 00:00: mouth at [place] 00 bedtime. [facility] clopidogreL 2020-0 Yes [id number] 75mg Take 1 [facility] (PLAVIX) 75 3-20 tablet by ity of mg tablet 00:00: mouth [place] 00 daily. Medical Branch insulin NPH 2019-0 Yes [id number] Inject 84 [facility] and regular 3-20 units AM, ity of human 00:00: 84 units [place] (NOVOLIN 00 PM Medical 70/30 U-100 Branch INSULIN) 100 unit/mL (70-30) injection atorvastati 2019-0 Yes [id number] 80mg Take 1 [facility] n 80 mg 3-20 tablet by ity of tablet 00:00: mouth at [place] 00 bedtime. [facility] Branch clopidogreL 2020-0 Yes [id number] 75mg Take 1 [facility] (PLAVIX) 75 3-20 tablet by ity of mg tablet 00:00: mouth 00 daily. Medical Branch insulin NPH 2019-0 Yes [id number] Inject 84 [facility] and regular 3-20 units AM, ity of human 00:00: 84 units [place] (NOVOLIN 00 PM Medical 70/30 U-100 Branch INSULIN) 100 unit/mL (70-30) injection atorvastati 2020-0 Yes [id number] 80mg Take 1 [facility] n 80 mg 3-20 tablet by ity of tablet 00:00: mouth at [place] 00 bedtime. [facility] Branch clopidogreL 2020-0 Yes [id number] 75mg Take 1 [facility] (PLAVIX) 75 3-20 tablet by ity of mg tablet 00:00: mouth [place] 00 daily. Medical Branch insulin NPH 2020-0 Yes [id number] Inject 84 [facility] and regular 3-20 units AM, ity of human 00:00: 84 units [place] (NOVOLIN 00 PM Medical 70/30 U-100 Branch INSULIN) 100 unit/mL (70-30) injection atorvastati 2020-0 Yes [id number] 80mg Take 1 [facility] n 80 mg 3-20 tablet by ity of tablet 00:00: mouth at [place] 00 bedtime. [facility] Branch clopidogreL 2020-0 Yes [id number] 75mg Take 1 [facility] (PLAVIX) 75 3-20 tablet by ity of mg tablet 00:00: mouth [place] 00 daily. Medical Branch insulin NPH 2020-0 Yes [id number] Inject 84 [facility] and regular 3-20 units AM, ity of human 70-30 00:00: 84 units [place] (NOVOLIN 00 PM Medical 70/30 U-100 Branch INSULIN) 100 unit/mL (70-30) injection atorvastati 2020-0 Yes [id number] 80mg Take 1 [facility] n 80 mg 3-20 tablet by ity of tablet 00:00: mouth at [place] 00 bedtime. Medical Branch clopidogreL 2020-0 Yes [id number] 75mg Take 1 [facility] (PLAVIX) 75 3-20 tablet by ity of mg tablet 00:00: mouth 00 daily. Medical Branch insulin NPH 2019-0 Yes [id number] Inject 84 [facility] and regular 3-20 units AM, ity of human 7030 00:00: 84 units [place] (NOVOLIN 00 PM Medical 70/30 U-100 Branch INSULIN) 100 unit/mL (70-30) injection atorvastati 2020-0 Yes [id number] 80mg Take 1 [facility] n 80 mg 3-20 tablet by ity of tablet 00:00: mouth at [place] 00 bedtime. Medical Branch clopidogreL 2020-0 Yes [id number] 75mg Take 1 [facility] (PLAVIX) 75 3-20 tablet by ity of mg tablet 00:00: mouth daily. Medical Branch insulin NPH 2020-0 Yes [id number] Inject 84 [facility] and regular 3-20 units AM, ity of human 7030 00:00: 84 units [place] (NOVOLIN 00 PM Medical 70/30 U-100 Branch INSULIN) 100 unit/mL (70-30) injection atorvastati 2020-0 Yes [id number] 80mg Take 1 [facility] n 80 mg 3-20 tablet by ity of tablet 00:00: mouth at [place] 00 bedtime. Medical Branch clopidogreL 2020-0 Yes [id number] 75mg Take 1 [facility] (PLAVIX) 75 3-20 tablet by ity of mg tablet 00:00: mouth [place] 00 daily. Medical Branch insulin NPH 2020-0 Yes [id number] Inject 84 [facility] and regular 3-20 units AM, ity of human 70-30 00:00: 84 units [place] (NOVOLIN 00 PM Medical 70/30 U-100 Branch INSULIN) 100 unit/mL (70-30) injection atorvastati 2020-0 Yes [id number] 80mg Take 1 [facility] n 80 mg 3-20 tablet by ity of tablet 00:00: mouth at [place] 00 bedtime. Medical Branch clopidogreL 2020-0 Yes [id number] 75mg Take 1 [facility] (PLAVIX) 75 3-20 tablet by ity of mg tablet 00:00: mouth [place] 00 daily. Medical Branch insulin NPH 2019-0 Yes [id number] Inject 84 [facility] and regular 3-20 units AM, ity of human 70 00:00: 84 units [place] (NOVOLIN 00 PM Medical 70/30 U-100 Branch INSULIN) 100 unit/mL (70-30) injection atorvastati 2020-0 Yes [id number] 80mg Take 1 [facility] n 80 mg 3-20 tablet by ity of tablet 00:00: mouth at bedtime. Medical Branch clopidogreL 2020-0 Yes [id number] 75mg Take 1 [facility] (PLAVIX) 75 3-20 tablet by ity of mg tablet 00:00: mouth daily. Medical Branch insulin NPH 2019-0 Yes [id number] Inject 84 [facility] and regular 3-20 units AM, ity of human 00:00: 84 units [place] (NOVOLIN 00 PM Medical 70/30 U-100 Branch INSULIN) 100 unit/mL (70-30) injection atorvastati 2020-0 Yes [id number] 80mg Take 1 [facility] n 80 mg 3-20 tablet by ity of tablet 00:00: mouth at [place] bedtime. Medical Branch clopidogreL 2020-0 Yes [id number] 75mg Take 1 [facility] (PLAVIX) 75 3-20 tablet by ity of mg tablet 00:00: mouth 00 daily. Medical Branch insulin NPH 2020-0 Yes [id number] Inject 84 [facility] and regular 3-20 units AM, ity of human 70 00:00: 84 units [place] (NOVOLIN 00 PM Medical 70/30 U-100 Branch INSULIN) 100 unit/mL (70-30) injection atorvastati 2020-0 Yes [id number] 80mg Take 1 [facility] n 80 mg 3-20 tablet by ity of tablet 00:00: mouth at [place] 00 bedtime. Medical Branch clopidogreL 2020-0 Yes [id number] 75mg Take 1 [facility] (PLAVIX) 75 3-20 tablet by ity of mg tablet 00:00: mouth [place] 00 daily. Medical Branch insulin NPH 2020-0 Yes [id number] Inject 84 [facility] and regular 3-20 units AM, ity of human 7030 00:00: 84 units [place] (NOVOLIN 00 PM Medical 70/30 U-100 Branch INSULIN) 100 unit/mL (70-30) injection atorvastati 2020-0 Yes [id number] 80mg Take 1 [facility] n 80 mg 3-20 tablet by ity of tablet 00:00: mouth at [place] 00 bedtime. Medical Branch clopidogreL 2020-0 Yes [id number] 75mg Take 1 [facility] (PLAVIX) 75 3-20 tablet by ity of mg tablet 00:00: mouth 00 daily. Medical Branch insulin NPH 2019-0 Yes [id number] Inject 84 [facility] and regular 3-20 units AM, ity of human 00:00: 84 units [place] (NOVOLIN 00 PM Medical 70/30 U-100 Branch INSULIN) 100 unit/mL (70-30) injection atorvastati 2020-0 Yes [id number] 80mg Take 1 [facility] n 80 mg 3-20 tablet by ity of tablet 00:00: mouth at [place] bedtime. Medical Branch clopidogreL 2020-0 Yes [id number] 75mg Take 1 [facility] (PLAVIX) 75 3-20 tablet by ity of mg tablet 00:00: mouth daily. Medical Branch insulin NPH 2020-0 Yes [id number] Inject 84 [facility] and regular 3-20 units AM, ity of human 7030 00:00: 84 units [place] (NOVOLIN 00 PM Medical 70/30 U-100 Branch INSULIN) 100 unit/mL (70-30) injection atorvastati 2020-0 Yes [id number] 80mg Take 1 [facility] n 80 mg 3-20 tablet by ity of tablet 00:00: mouth at [place] 00 bedtime. Medical Branch clopidogreL 2020-0 Yes [id number] 75mg Take 1 [facility] (PLAVIX) 75 3-20 tablet by ity of mg tablet 00:00: mouth 00 daily. Medical Branch insulin NPH 2020-0 Yes [id number] Inject 84 [facility] and regular 3-20 units AM, ity of human 70-30 00:00: 84 units [place] (NOVOLIN 00 PM Medical 70/30 U-100 Branch INSULIN) 100 unit/mL (70-30) injection atorvastati 2020-0 Yes [id number] 80mg Take 1 [facility] n 80 mg 3-20 tablet by ity of tablet 00:00: mouth at [place] 00 bedtime. Medical Branch clopidogreL 2020-0 Yes [id number] 75mg Take 1 [facility] (PLAVIX) 75 3-20 tablet by ity of mg tablet 00:00: mouth 00 daily. Medical Branch insulin NPH 2019-0 Yes [id number] Inject 84 [facility] and regular 3-20 units AM, ity of human 00:00: 84 units [place] (NOVOLIN 00 PM Medical 70/30 U-100 Branch INSULIN) 100 unit/mL (70-30) injection atorvastati 2020-0 Yes [id number] 80mg Take 1 [facility] n 80 mg 3-20 tablet by ity of tablet 00:00: mouth at [place] bedtime. Medical Branch clopidogreL 2020-0 Yes [id number] 75mg Take 1 [facility] (PLAVIX) 75 3-20 tablet by ity of mg tablet 00:00: mouth daily. Medical Branch insulin NPH 2019-0 Yes [id number] Inject 84 [facility] and regular 3-20 units AM, ity of human 00:00: 84 units [place] (NOVOLIN 00 PM Medical 70/30 U-100 Branch INSULIN) 100 unit/mL (70-30) injection atorvastati 2020-0 Yes [id number] 80mg Take 1 [facility] n 80 mg 3-20 tablet by ity of tablet 00:00: mouth at [place] bedtime. Medical Branch clopidogreL 2020-0 Yes [id number] 75mg Take 1 [facility] (PLAVIX) 75 3-20 tablet by ity of mg tablet 00:00: mouth 00 daily. Medical Branch insulin NPH 2020-0 Yes [id number] Inject 84 [facility] and regular 3-20 units AM, ity of human 00:00: 84 units [place] (NOVOLIN 00 PM Medical 70/30 U-100 Branch INSULIN) 100 unit/mL (70-30) injection atorvastati 2020-0 Yes [id number] 80mg Take 1 [facility] n 80 mg 3-20 tablet by ity of tablet 00:00: mouth at [place] 00 bedtime. Medical Branch clopidogreL 2020-0 Yes [id number] 75mg Take 1 [facility] (PLAVIX) 75 3-20 tablet by ity of mg tablet 00:00: mouth [place] 00 daily. Medical Branch insulin NPH 2020-0 Yes [id number] Inject 84 [facility] and regular 3-20 units AM, ity of human 7030 00:00: 84 units [place] (NOVOLIN 00 PM Medical 70/30 U-100 Branch INSULIN) 100 unit/mL (70-30) injection atorvastati 2020-0 Yes [id number] 80mg Take 1 [facility] n 80 mg 3-20 tablet by ity of tablet 00:00: mouth at [place] 00 bedtime. Medical Branch clopidogreL 2020-0 Yes [id number] 75mg Take 1 [facility] (PLAVIX) 75 3-20 tablet by ity of mg tablet 00:00: mouth daily. Medical Branch insulin NPH 2019-0 Yes [id number] Inject 84 [facility] and regular 3-20 units AM, ity of human 7030 00:00: 84 units [place] (NOVOLIN 00 PM Medical 70/30 U-100 Branch INSULIN) 100 unit/mL (70-30) injection atorvastati 2020-0 Yes [id number] 80mg Take 1 [facility] n 80 mg 3-20 tablet by ity of tablet 00:00: mouth at [place] bedtime. Medical Branch clopidogreL 2020-0 Yes [id number] 75mg Take 1 [facility] (PLAVIX) 75 3-20 tablet by ity of mg tablet 00:00: mouth daily. Medical Branch insulin NPH 2020-0 Yes [id number] Inject 84 [facility] and regular 3-20 units AM, ity of human 7030 00:00: 84 units [place] (NOVOLIN 00 PM Medical 70/30 U-100 Branch INSULIN) 100 unit/mL (70-30) injection atorvastati 2020-0 Yes [id number] 80mg Take 1 [facility] n 80 mg 3-20 tablet by ity of tablet 00:00: mouth at [place] 00 bedtime. [facility] Branch clopidogreL 2020-0 Yes [id number] 75mg Take 1 [facility] (PLAVIX) 75 3-20 tablet by ity of mg tablet 00:00: mouth 00 daily. Medical Branch insulin NPH 2020-0 Yes [id number] Inject 84 [facility] and regular 3-20 units AM, ity of human 70-30 00:00: 84 units [place] (NOVOLIN 00 PM Medical 70/30 U-100 Branch INSULIN) 100 unit/mL (70-30) injection atorvastati 2020-0 Yes [id number] 80mg Take 1 [facility] n 80 mg 3-20 tablet by ity of tablet 00:00: mouth at [place] 00 bedtime. Medical Branch clopidogreL 2020-0 Yes [id number] 75mg Take 1 [facility] (PLAVIX) 75 3-20 tablet by ity of mg tablet 00:00: mouth [place] 00 daily. Medical Branch insulin NPH 2019-0 Yes [id number] Inject 84 [facility] and regular 3-20 units AM, ity of human 70-30 00:00: 84 units [place] (NOVOLIN 00 PM Medical 70/30 U-100 Branch INSULIN) 100 unit/mL (70-30) injection atorvastati 2019-0 Yes [id number] 80mg Take 1 [facility] n 80 mg 3-20 tablet by ity of tablet 00:00: mouth at [place] 00 bedtime. Medical Branch clopidogreL 2020-0 Yes [id number] 75mg Take 1 [facility] (PLAVIX) 75 3-20 tablet by ity of mg tablet 00:00: mouth [place] 00 daily. Medical Branch atorvastati 2020-0 Yes [id number] 80mg Take 1 [facility] n 80 mg 3-20 tablet by ity of tablet 00:00: mouth at [place] 00 bedtime. Medical Branch clopidogreL 2020-0 Yes [id number] 75mg Take 1 [facility] (PLAVIX) 75 3-20 tablet by ity of mg tablet 00:00: mouth 00 daily. Medical Branch atorvastati 2020-0 Yes [id number] 80mg Take 1 [facility] n 80 mg 3-20 tablet by ity of tablet 00:00: mouth at [place] 00 bedtime. Medical Branch clopidogreL 2020-0 Yes [id number] 75mg Take 1 [facility] (PLAVIX) 75 3-20 tablet by ity of mg tablet 00:00: mouth [place] 00 daily. Medical Branch atorvastati 2020-0 Yes [id number] 80mg Take 1 [facility] n 80 mg 3-20 tablet by ity of tablet 00:00: mouth at [place] 00 bedtime. Medical Branch clopidogreL 2020-0 Yes [id number] 75mg Take 1 [facility] (PLAVIX) 75 3-20 tablet by ity of mg tablet 00:00: mouth [place] 00 daily. Medical Branch atorvastati 2020-0 Yes [id number] 80mg Take 1 [facility] n 80 mg 3-20 tablet by ity of tablet 00:00: mouth at [place] 00 bedtime. Medical Branch clopidogreL 2020-0 Yes [id number] 75mg Take 1 [facility] (PLAVIX) 75 3-20 tablet by ity of mg tablet 00:00: mouth [place] 00 daily. Medical Branch atorvastati 2020-0 Yes [id number] 80mg Take 1 [facility] n 80 mg 3-20 tablet by ity of tablet 00:00: mouth at [place] 00 bedtime. Medical Branch clopidogreL 2020-0 Yes [id number] 75mg Take 1 [facility] (PLAVIX) 75 3-20 tablet by ity of mg tablet 00:00: mouth [place] 00 daily. Medical Branch clopidogreL 2020-0 Yes [id number] 75mg Take 1 [facility] (PLAVIX) 75 3-20 tablet by ity of mg tablet 00:00: mouth [place] 00 daily. Medical Branch clopidogreL 2020-0 Yes [id number] 75mg Take 1 [facility] (PLAVIX) 75 3-20 tablet by ity of mg tablet 00:00: mouth [place] 00 daily. Medical Branch clopidogreL 2020-0 Yes [id number] 75mg Take 1 [facility] (PLAVIX) 75 3-20 tablet by ity of mg tablet 00:00: mouth [place] 00 daily. Medical Branch clopidogreL 2020-0 Yes [id number] 75mg Take 1 [facility] (PLAVIX) 75 3-20 tablet by ity of mg tablet 00:00: mouth [place] 00 daily. Medical Branch clopidogreL 2020-0 Yes [id number] 75mg Take 1 [facility] (PLAVIX) 75 3-20 tablet by ity of mg tablet 00:00: mouth [place] 00 daily. Medical Branch clopidogreL 2020-0 Yes [id number] 75mg Take 1 [facility] (PLAVIX) 75 3-20 tablet by ity of mg tablet 00:00: mouth [place] 00 daily. Medical Branch clopidogreL 2020-0 Yes [id number] 75mg Take 1 [facility] (PLAVIX) 75 3-20 tablet by ity of mg tablet 00:00: mouth [place] 00 daily. [facility] Branch clopidogreL 2020-0 Yes [id number] 75mg Take 1 [facility] (PLAVIX) 75 3-20 tablet by ity of mg tablet 00:00: mouth [place] 00 daily. [facility] Branch clopidogreL 2020-0 Yes [id number] 75mg Take 1 [facility] (PLAVIX) 75 3-20 tablet by ity of mg tablet 00:00: mouth [place] 00 daily. Medical Branch clopidogreL 2020-0 Yes [id number] 75mg Take 1 [facility] (PLAVIX) 75 3-20 tablet by ity of mg tablet 00:00: mouth [place] 00 daily. Medical Branch clopidogreL 2020-0 Yes [id number] 75mg Take 1 [facility] (PLAVIX) 75 3-20 tablet by ity of mg tablet 00:00: mouth [place] 00 daily. Medical Branch clopidogreL 2020-0 Yes [id number] 75mg Take 1 [facility] (PLAVIX) 75 3-20 tablet by ity of mg tablet 00:00: mouth [place] 00 daily. Medical Branch insulin NPH 2019-0 Yes [id number] Inject 84 [facility] and regular 3-20 units AM, ity of human 70-30 00:00: 84 units [place] (NOVOLIN 00 PM Medical 70/30 U-100 Branch INSULIN) 100 unit/mL (70-30) injection atorvastati 2019-0 Yes [id number] 80mg Take 1 [facility] n 80 mg 3-20 07 tablet by ity of tablet 00:00: mouth at [place] 00 bedtime. Medical Branch clopidogreL 2019-0 Yes [id number] 75mg Take 1 [facility] (PLAVIX) 75 3-20 tablet by ity of mg tablet 00:00: mouth [place] 00 daily. Medical Branch insulin NPH 2019-0 Yes [id number] Inject 84 [facility] and regular 3-20 units AM, ity of human 70-30 00:00: 84 units [place] (NOVOLIN 00 PM Medical 70/30 U-100 Branch INSULIN) 100 unit/mL (70-30) injection atorvastati 2019-0 Yes [id number] 80mg Take 1 [facility] n 80 mg [...] Medical placement Branch clopidogreL 2020-0 2020- No [id number] 75mg Take 1 [facility] (PLAVIX) 75 3-20 07-06 tablet by it y of mg tablet 00:00: 00:00 mouth [place] 00 :00 daily. Medical Branch atorvastati 2020- No [id number] 80mg Take 1 [facility] n 80 mg 3-20 -06 tablet by ity of tablet 00:00: 00:00 mouth at [place] 00 :00 bedtime. Medical Branch atorvastati 2020- No [id number] 80mg Take 1 [facility] n 80 mg 3-20 -06 tablet by ity of tablet 00:00: 00:00 mouth at [place] 00 :00 bedtime. Medical Branch atorvastati 2020- No Coronary 80mg Take 1 [facility] n 80 mg 3-20 -06 artery tablet by ity of tablet 00:00: 00:00 disease mouth at [place] 00 :00 involving bedtime. [facility] [place] [facility] coronary artery of [place] heart without angina pectoris atorvastati 2020- No Coronary 80mg Take 1 [facility] n 80 mg 3-20 -06 artery tablet by ity of tablet 00:00: 00:00 disease mouth at [place] 00 :00 involving bedtime. Medica l [place] [facility] coronary artery of [place] heart without angina pectoris insulin NPH 2020- No [id number] Inject 84 Univers and regular 3- 04-12 [...] Medi blanquita (8 %) IV 08/15/19 at [facility] h Piggyback 4 0745, g Routine [...] ONCE, 1 [place] (LUMASON) 00 :00 dose, Wed Medic al [...] (rounded ity of (LANTUS 14:00: 06:45 from [place] U-100) 00 :18 20.175 Medical injection Units [...] Routine ipratropium 2019- No 3mL 3 mL, [facility] ers -albuterol 08-13 Inhalation it y of [...] 0.25 Branch Units Units/kg/d ay ?80.7 kg), [facility], First dose on Mon08/14/19 at 0730, Until Discontinu ed, Routine magnesium 2019-0 2020- No 4g 4 g, IV Univ ers sulfate in 08-13 Piggyback, it y of water 4 12:15: 14:00 ONCE, 1 [place] gram/50 mL 00 :00 dose, Mon Medi blanquita (8 %) IV 08/14/19 at [facility] h Piggyback 4 0715, g Routine [...] KIT) 55 Starting Medical injection 1 Mon [place] mg 08/14/19 at 0705, Until Discontinu ed, TRANG, Blood Glucose < or = 70 mg/dL and patient is unable to swallow or has mental changes. morpHINE 2020- No 2mg 2 mg, Slow Un cali injection 2 08-13 IV Push, ity of mg 11:45: 10:43 ONCE, 1 [place] 00 :00 dose, Mon Medical 08/14/19 at [place] 0645, Routine atorvastati 2019-0 2020- No 40mg 40 mg, Uni vers n (LIPITOR) 08-13 Oral, QHS, i ty of tablet 40 02:00: 14:33 First dose [place] mg 00 :04 on Pending Sale To [facility] Medical 08/13/19 at [place] 2100, Until Discontinu ed, Routine Sliding 2019-0 2020- No Subcutaneo Uni vers Scale 08-12 us, TID ity of Insulin - 22:00: 12:09 MEALS+HS, [place] Aspart 00 :18 First dose Medical (NOVOLOG) + on [facility] Fsbg 08/13/19 at Testing 1700, Until Discontinu ed, Routine dextrometho 2019-0 Yes 5mL 5 mL, [facility] rs rphan-guaif 08-12 Oral, ity of enesin 21:03: Q6HPRN, [place] (ROBITUSSIN 48 Starting Medi blanquita DM) 10-100 [facility] mg/5 mL 08/13/19 at solution 5 1603, mL Until Discontinu ed, Routine, Cough morpHINE 2019- No 4mg 4 mg, Slow Un cali injection 4 08-12 IV Push, ity of mg 21:00: 20:06 ONCE, 1 [place] 00 :00 dose, [facility] 08/13/19 at Branch 1600, Routine clopidogreL 2019- No 300mg 300 mg, U nivers (PLAVIX) 08-12 Oral, ity of tablet 300 20:30: 21:32 ONCE, 1 [place] mg 00 :00 dose, [facility] 08/13/19 at Branch 1530, Routine NaCl 0.9% 2019- No [facility]-12 mL/hr, IV ity of infusion 20:30: 19:41 Infusion, [place] 500 mL 00 :00 ONCE, 1 Medical dose, [facility] 08/13/19 at 1530, Routine
50 cc/hr for 500 mL total
HYDROcodone 2019- No 1{tbl} 1 tablet, Univers -acetaminop 08-12 Oral, ity of hen (NORCO 20:15: 02:39 ONCE, 1 [place] 5) 5-325 mg 00 :00 dose, Pending Sale To [facility] ical tablet 1 08/13/19 at [facility] h tablet 1515, Routine FENTanyl PF 2020- No Slow IV Un cali (SUBLIMAZE 08-12 Push, ity of (PF)) 16:26: 16:26 TITRATE - [place] injection 15 :15 FOR Medical PROCEDURE Branch USE, 1 dose, Starting Pending Sale To [facility] 08/13/19 at 1126, Until Mon08/13/19 at 1126, Routine midazolam 2019-0 2020- No IV Push, Uni vers (VERSED) 08-12 TITRATE - ity o f injection 16:26: 16:26 FOR [place] 05 :05 PROCEDURE Medical USE, 1 Branch dose, Starting Pending Sale To [facility] 08/13/19 at 1126, Until Pending Sale To [facility] 08/13/19 at 1126, Routine clopidogreL 2019-0 2020- No 300mg 300 mg, U nivers (PLAVIX) 08-12 Oral, ity of tablet 300 15:30: 15:48 ONCE, 1 [place] mg 00 :00 dose, Pending Sale To [facility] Medical 08/13/19 at Branch 1030, Routine pantoprazol 2019-0 Yes 40mg 40 mg, Univ ers e 08-12 Oral, ity of (PROTONIX) 14:00: DAILY, [place] EC tablet 00 First dose Medi blanquita 40 mg on [facility] 08/13/19 at 0900, Until Discontinu ed, Routine isosorbide 2019-0 Yes 30mg 30 mg, Unive rs mononitrate 08-12 Oral, ity of (IMDUR) 24 14:00: DAILY, [place] hr tablet 00 First dose Medi blanquita 30 mg on [facility] 08/13/19 at 0900, Until Discontinu ed, Routine furosemide 2019-0 Yes 20mg 20 mg, Unive rs (LASIX) 08-12 Oral, ity of tablet 20 14:00: DAILY, [place] mg 00 First dose Medical on [facility] 08/13/19 at 0900, Until Discontinu ed, Routine insulin NPH 2019- 2020- No .3U/kg/ 12 Units Univers (HUMULIN N) 08-12 d (rounded ity of injection 14:00: 12:08 from [place] 12 Units 00 :24 12.195 Medical Units = Branch 0.3 Units/kg/d ay ?81.3 kg), Subcutaneo us, QAM+HS, First dose on Pending Sale To [facility] 08/13/19 at 0900, Until Discontinu ed, Routine metoprolol 2019-0 2020- No 25mg 25 mg, Univ ers tartrate 08-12 Oral, ity of (LOPRESSOR) 14:00: 12:10 DAILY, [place] tablet 25 00 :23 First dose Medi blanquita mg on [facility] 08/13/19 at 0900, Until Discontinu ed, Routine aspirin EC 2019- 2020- No 81mg 81 mg, Univ ers tablet 81 08-12 Oral, ity of mg 14:00: 13:38 DAILY, [place] 00 :12 First dose Medical on [facility] [facility] 08/13/19 at 0900, Until Discontinu ed, Routine gabapentin 2020-0 Yes 800mg 800 mg, Uni vers (NEURONTIN) 08-12 Oral, TID, it y of tablet 800 13:00: First dose [place] mg 00 on Pending Sale To [facility] 08/13/19 at Branch 0800, Until Discontinu ed, Routine insulin 2019- 2020- No .3U/kg/ 8 Units Uni vers aspart 08-1218 d (rounded ity of RAPID 13:00: 12:08 from 8.13 [place] (NOVOLOG) 00 :24 Units = Medical injection 8 0.3 Branch Units Units/kg/d ay ?81.3 kg), Subcutaneo us, TID MEALS, First dose on Pending Sale To [facility] 08/13/19 at 0800, Until Discontinu ed, Routine [...] ONCE, 1 Medical Soln 4,000 dose, Mon [facility] ch Units 08/13/19 at 0500, Routine heparin 2020-0 Yes 3000U FOR Univers (1,000 08-12 REBOLUSING ity of unit/mL, 10 09:43: , Starting [place] mL vial) 08 [facility] for 08/13/19 at Branch Rebolusing [...] 59 :57 Starting Medi blanquita DM) 10-100 [facility] mg/5 mL 08/13/19 at solution 5 0225, mL Until 08/13/19 at 1603, Routine, Cough morpHINE 2020-0 2020- No 2mg 2 mg, Slow Un cali injection 2 08-12 IV Push, ity of mg 06:08: 13:24 Q6HPRN, 2 [place] 33 :00 doses, Medical Starting Branch Pending Sale To [facility] 08/13/19 at 0108, Until 08/13/19 at 0824, Routine, Chest pain aspirin 2020-0 Yes 81mg Take 81 mg Univ ers (ASPIRIN 3-17 by mouth ity of LOW DOSE) 04:49: daily. [place] 81 mg EC 06 Medical tablet [place] aspirin 2020-0 Yes 81mg Take 81 mg Univ ers (ASPIRIN 3-17 by mouth ity of LOW DOSE) 04:49: daily. [place] 81 mg EC 06 Medical tablet [place] nitroglycer 2020-0 Yes .4mg 0.4 mg, Uni [...] 37 Medical tablet Branch isosorbide 2020-0 Yes [id number] 30mg Take 1 Univers mononitrate 3-09 tablet by ity of 30 mg 24 hr 00:00: mouth [place] tablet 00 daily. Medical Branch isosorbide 2020-0 Yes [id number] 30mg Take 1 Univers mononitrate 3-09 tablet by ity of 30 mg 24 hr 00:00: mouth [place] tablet 00 daily. Medical Branch isosorbide 2020-0 Yes [id number] 30mg Take 1 Univers mononitrate 3-09 tablet by ity of 30 mg 24 hr 00:00: mouth [place] tablet 00 daily. Medical Branch isosorbide 2020-0 Yes [id number] 30mg Take 1 Univers mononitrate 3-09 tablet by ity of 30 mg 24 hr 00:00: mouth [place] tablet 00 daily. Medical Branch isosorbide 2020-0 Yes [id number] 30mg Take 1 Univers mononitrate 3-09 tablet by ity of 30 mg 24 hr 00:00: mouth [place] tablet 00 daily. Medical Branch isosorbide 2020-0 Yes [id number] 30mg Take 1 Univers mononitrate 3-09 tablet by ity of 30 mg 24 hr 00:00: mouth [place] tablet 00 daily. Medical Branch isosorbide 2020-0 Yes [id number] 30mg Take 1 Univers mononitrate 3-09 tablet by ity of 30 mg 24 hr 00:00: mouth [place] tablet 00 daily. Medical Branch isosorbide 2020-0 Yes [id number] 30mg Take 1 Univers mononitrate 3-09 tablet by ity of 30 mg 24 hr 00:00: mouth [place] tablet 00 daily. Medical Branch isosorbide 2020-0 Yes [id number] 30mg Take 1 Univers mononitrate 3-09 tablet by ity of 30 mg 24 hr 00:00: mouth [place] tablet 00 daily. Medical Branch isosorbide 2020-0 Yes [id number] 30mg Take 1 Univers mononitrate 3-09 tablet by ity of 30 mg 24 hr 00:00: mouth [place] tablet 00 daily. Medical Branch isosorbide 2020-0 Yes [id number] 30mg Take 1 Univers mononitrate 3-09 tablet by ity of 30 mg 24 hr 00:00: mouth [place] tablet 00 daily. Medical Branch isosorbide 2020-0 Yes [id number] 30mg Take 1 Univers mononitrate 3-09 tablet by ity of 30 mg 24 hr 00:00: mouth [place] tablet 00 daily. Medical Branch isosorbide 2020-0 Yes [id number] 30mg Take 1 Univers mononitrate 3-09 tablet by ity of 30 mg 24 hr 00:00: mouth [place] tablet 00 daily. Medical Branch isosorbide 2020-0 Yes [id number] 30mg Take 1 Univers mononitrate 3-09 tablet by ity of 30 mg 24 hr 00:00: mouth [place] tablet 00 daily. Medical Branch isosorbide 2020-0 Yes [id number] 30mg Take 1 Univers mononitrate 3-09 tablet by ity of 30 mg 24 hr 00:00: mouth [place] tablet 00 daily. Medical Branch isosorbide 2020-0 Yes [id number] 30mg Take 1 Univers mononitrate 3-09 tablet by ity of 30 mg 24 hr 00:00: mouth [place] tablet 00 daily. Medical Branch isosorbide 2020-0 Yes [id number] 30mg Take 1 Univers mononitrate 3-09 tablet by ity of 30 mg 24 hr 00:00: mouth [place] tablet 00 daily. Medical Branch isosorbide 2020-0 Yes [id number] 30mg Take 1 Univers mononitrate 3-09 tablet by ity of 30 mg 24 hr 00:00: mouth [place] tablet 00 daily. Medical Branch isosorbide 2020-0 Yes [id number] 30mg Take 1 Univers mononitrate 3-09 tablet by ity of 30 mg 24 hr 00:00: mouth [place] tablet 00 daily. Medical Branch isosorbide 2020-0 Yes [id number] 30mg Take 1 Univers mononitrate 3-09 tablet by ity of 30 mg 24 hr 00:00: mouth [place] tablet 00 daily. Medical Branch isosorbide 2020-0 Yes [id number] 30mg Take 1 Univers mononitrate 3-09 tablet by ity of 30 mg 24 hr 00:00: mouth [place] tablet 00 daily. Medical Branch isosorbide 2020-0 Yes [id number] 30mg Take 1 Univers mononitrate 3-09 tablet by ity of 30 mg 24 hr 00:00: mouth [place] tablet 00 daily. Medical Branch isosorbide 2020-0 Yes [id number] 30mg Take 1 Univers mononitrate 3-09 tablet by ity of 30 mg 24 hr 00:00: mouth [place] tablet 00 daily. Medical Branch isosorbide 2020-0 Yes [id number] 30mg Take 1 Univers mononitrate 3-09 tablet by ity of 30 mg 24 hr 00:00: mouth [place] tablet 00 daily. Medical Branch isosorbide 2020-0 Yes [id number] 30mg Take 1 Univers mononitrate 3-09 tablet by ity of 30 mg 24 hr 00:00: mouth [place] tablet 00 daily. Medical Branch isosorbide 2020-0 Yes [id number] 30mg Take 1 Univers mononitrate 3-09 tablet by ity of 30 mg 24 hr 00:00: mouth [place] tablet 00 daily. Medical Branch isosorbide 2020-0 Yes [id number] 30mg Take 1 Univers mononitrate 3-09 tablet by ity of 30 mg 24 hr 00:00: mouth [place] tablet 00 daily. Medical Branch isosorbide 2020-0 Yes [id number] 30mg Take 1 Univers mononitrate 3-09 tablet by ity of 30 mg 24 hr 00:00: mouth [place] tablet 00 daily. Medical Branch isosorbide 2020-0 Yes [id number] 30mg Take 1 Univers mononitrate 3-09 tablet by ity of 30 mg 24 hr 00:00: mouth [place] tablet 00 daily. Medical Branch isosorbide 2020-0 Yes [id number] 30mg Take 1 Univers mononitrate 3-09 tablet by ity of 30 mg 24 hr 00:00: mouth [place] tablet 00 daily. Medical Branch isosorbide 2020-0 Yes [id number] 30mg Take 1 Univers mononitrate 3-09 tablet by ity of 30 mg 24 hr 00:00: mouth [place] tablet 00 daily. Medical Branch isosorbide 2020-0 Yes [id number] 30mg Take 1 Univers mononitrate 3-09 tablet by ity of 30 mg 24 hr 00:00: mouth [place] tablet 00 daily. Medical Branch isosorbide 2020-0 Yes [id number] 30mg Take 1 Univers mononitrate 3-09 tablet by ity of 30 mg 24 hr 00:00: mouth [place] tablet 00 daily. Medical Branch isosorbide 2020-0 Yes [id number] 30mg Take 1 Univers mononitrate 3-09 tablet by ity of 30 mg 24 hr 00:00: mouth [place] tablet 00 daily. Medical Branch isosorbide 2020-0 Yes [id number] 30mg Take 1 Univers mononitrate 3-09 tablet by ity of 30 mg 24 hr 00:00: mouth [place] tablet 00 daily. Medical Branch isosorbide 2020-0 Yes [id number] 30mg Take 1 Univers mononitrate 3-09 tablet by ity of 30 mg 24 hr 00:00: mouth [place] tablet 00 daily. Medical Branch isosorbide 2020-0 Yes [id number] 30mg Take 1 Univers mononitrate 3-09 tablet by ity of 30 mg 24 hr 00:00: mouth [place] tablet 00 daily. Medical Branch isosorbide 2020-0 Yes [id number] 30mg Take 1 Univers mononitrate 3-09 tablet by ity of 30 mg 24 hr 00:00: mouth [place] tablet 00 daily. Medical Branch isosorbide 2020-0 Yes [id number] 30mg Take 1 Univers mononitrate 3-09 tablet by ity of 30 mg 24 hr 00:00: mouth [place] tablet 00 daily. Medical Branch isosorbide 2020-0 Yes [id number] 30mg Take 1 Univers mononitrate 3-09 tablet by ity of 30 mg 24 hr 00:00: mouth [place] tablet 00 daily. Medical Branch isosorbide 2020-0 Yes [id number] 30mg Take 1 Univers mononitrate 3-09 tablet by ity of 30 mg 24 hr 00:00: mouth [place] tablet 00 daily. [facility] Branch isosorbide 2020-0 Yes [id number] 30mg Take 1 Univers mononitrate 3-09 tablet by ity of 30 mg 24 hr 00:00: mouth [place] tablet 00 daily. Medical Branch isosorbide 2020-0 Yes [id number] 30mg Take 1 Univers mononitrate 3-09 tablet by ity of 30 mg 24 hr 00:00: mouth [place] tablet 00 daily. Medical Branch isosorbide 2020-0 Yes [id number] 30mg Take 1 Univers mononitrate 3-09 tablet by ity of 30 mg 24 hr 00:00: mouth [place] tablet 00 daily. Medical Branch isosorbide 2020-0 Yes [id number] 30mg Take 1 Univers mononitrate 3-09 tablet by ity of 30 mg 24 hr 00:00: mouth [place] tablet 00 daily. Medical Branch isosorbide 2020-0 Yes [id number] 30mg Take 1 Univers mononitrate 3-09 tablet by ity of 30 mg 24 hr 00:00: mouth [place] tablet 00 daily. [facility] Branch isosorbide 2020-0 Yes [id number] 30mg Take 1 Univers mononitrate 3-09 tablet by ity of 30 mg 24 hr 00:00: mouth [place] tablet 00 daily. [facility] Branch isosorbide 2020-0 Yes [id number] 30mg Take 1 Univers mononitrate 3-09 tablet by ity of 30 mg 24 hr 00:00: mouth [place] tablet 00 daily. Medical Branch isosorbide 2020-0 Yes [id number] 30mg Take 1 Univers mononitrate 3-09 tablet by ity of 30 mg 24 hr 00:00: mouth [place] tablet 00 daily. [facility] Branch isosorbide 2020-0 Yes [id number] 30mg Take 1 Univers mononitrate 3-09 tablet by ity of 30 mg 24 hr 00:00: mouth [place] tablet 00 daily. [facility] Branch isosorbide 2020-0 2021- No [id number] 30mg Take 1 Univers mononitrate 3-09 -08 tablet by it y of 30 mg 24 hr 00:00: 00:00 [place] tablet 00 :00 daily. Medical Branch insulin NPH 2018-05 Yes [id number] Inject 80 Univers and regular 2-13 units AM, ity of human 70-30 00:00: 90 units [place] (NOVOLIN 00 PM Medical 70/30 U-100 Branch INSULIN) 100 unit/mL (70-30) injection insulin NPH 2018-05 Yes [id number] Inject 80 Univers and regular 2-13 units AM, ity of human 70-30 00:00: 90 units [place] (NOVOLIN 00 PM Medical 70/30 U-100 Branch INSULIN) 100 unit/mL (70-30) injection insulin NPH 2018-05 Yes [id number] Inject 80 Univers and regular 2-13 units AM, ity of human 7030 00:00: 90 units [place] (NOVOLIN 00 PM Medical 70/30 U-100 Branch INSULIN) 100 unit/mL (70-30) injection insulin NPH 2018-05 Yes [id number] Inject 80 Univers and regular 2-13 units AM, ity of human 00:00: 90 units [place] (NOVOLIN 00 PM Medical 70/30 U-100 Branch INSULIN) 100 unit/mL (70-30) injection insulin NPH 2018-05 Yes [id number] Inject 80 Univers and regular 2-13 units AM, ity of human 30 00:00: 90 units [place] (NOVOLIN 00 PM Medical 70/30 U-100 Branch INSULIN) 100 unit/mL (70-30) injection insulin NPH 2018-05 Yes [id number] Inject 80 Univers and regular 2-13 units AM, ity of human 00:00: 90 units [place] (NOVOLIN 00 PM Medical 70/30 U-100 Branch INSULIN) 100 unit/mL (70-30) injection insulin NPH 2018-05 Yes [id number] Inject 80 Univers and regular 2-13 units AM, ity of human 00:00: 90 units [place] (NOVOLIN 00 PM Medical 70/30 U-100 Branch INSULIN) 100 unit/mL (70-30) injection insulin NPH 2018-05 2020- No [id number] Inject 80 Univers and regular 2-13 03-20 units AM, it y of human 00:00: 00:00 90 units [place] (NOVOLIN 00 :00 PM Medical 70/30 U-100 Branch INSULIN) 100 unit/mL (70-30) injection FUROSEMIDE 2018-05 Yes [id number] TAKE 1 U nivers 20 mg 2-11 TABLET BY ity of tablet 00:00: MOUTH ONCE DAILY Medical Branch FUROSEMIDE 2018-05 Yes [id number] TAKE 1 U nivers 20 mg 2-11 TABLET BY ity of tablet 00:00: MOUTH ONCE DAILY Medical Branch FUROSEMIDE 2018-05 Yes [id number] TAKE 1 U nivers 20 mg 2-11 TABLET BY ity of tablet 00:00: MOUTH ONCE [place] DAILY Medical Branch FUROSEMIDE 2019- Yes [id number] TAKE 1 U nivers 20 mg 2-11 TABLET BY ity of tablet 00:00: MOUTH ONCE DAILY Medical Branch FUROSEMIDE 2019- Yes [id number] TAKE 1 U nivers 20 mg 2-11 TABLET BY ity of tablet 00:00: MOUTH ONCE Medical Branch FUROSEMIDE 2019- Yes [id number] TAKE 1 U nivers 20 mg 2-11 TABLET BY ity of tablet 00:00: MOUTH ONCE DAILY Medical Branch FUROSEMIDE 2019- Yes [id number] TAKE 1 U nivers 20 mg 2-11 TABLET BY ity of tablet 00:00: MOUTH ONCE DAILY Medical Branch FUROSEMIDE 2019- Yes [id number] TAKE 1 U nivers 20 mg 2-11 TABLET BY ity of tablet 00:00: MOUTH ONCE DAILY Medical Branch FUROSEMIDE 2019- Yes [id number] TAKE 1 U nivers 20 mg 2-11 TABLET BY ity of tablet 00:00: MOUTH ONCE DAILY Medical Branch FUROSEMIDE 2019- Yes [id number] TAKE 1 U nivers 20 mg 2-11 TABLET BY ity of tablet 00:00: MOUTH ONCE DAILY Medical Branch FUROSEMIDE 2019- Yes [id number] TAKE 1 U nivers 20 mg 2-11 TABLET BY ity of tablet 00:00: MOUTH ONCE [place] DAILY Medical Branch FUROSEMIDE 2019- Yes [id number] TAKE 1 U nivers 20 mg 2-11 TABLET BY ity of tablet 00:00: MOUTH ONCE [place] DAILY Medical Branch FUROSEMIDE 2019- Yes [id number] TAKE 1 U nivers 20 mg 2-11 TABLET BY ity of tablet 00:00: MOUTH ONCE [place] DAILY Medical Branch FUROSEMIDE 2019- Yes [id number] TAKE 1 U nivers 20 mg 2-11 TABLET BY ity of tablet 00:00: MOUTH ONCE [place] DAILY Medical Branch FUROSEMIDE 2019- Yes [id number] TAKE 1 U nivers 20 mg 2-11 TABLET BY ity of tablet 00:00: MOUTH ONCE DAILY Medical Branch FUROSEMIDE 2019- Yes [id number] TAKE 1 U nivers 20 mg 2-11 TABLET BY ity of tablet 00:00: MOUTH ONCE [place] DAILY Medical Branch FUROSEMIDE 2019- Yes [id number] TAKE 1 U nivers 20 mg 2-11 TABLET BY ity of tablet 00:00: MOUTH ONCE [place] DAILY Medical Branch FUROSEMIDE 2019- Yes [id number] TAKE 1 U nivers 20 mg 2-11 TABLET BY ity of tablet 00:00: MOUTH ONCE [place] DAILY Medical Branch FUROSEMIDE 2019- Yes [id number] TAKE 1 U nivers 20 mg 2-11 TABLET BY ity of tablet 00:00: MOUTH ONCE [place] [id number] DAILY Medical Branch FUROSEMIDE 2019- Yes [id number] TAKE 1 U nivers 20 mg 2-11 TABLET BY ity of tablet 00:00: MOUTH ONCE [place] DAILY Medical Branch FUROSEMIDE 2019- Yes [id number] TAKE 1 U nivers 20 mg 2-11 TABLET BY ity of tablet 00:00: MOUTH ONCE [place] DAILY Medical Branch FUROSEMIDE 2018- Yes [id number] TAKE 1 U nivers 20 mg 2-11 TABLET BY ity of tablet 00:00: MOUTH ONCE [place] DAILY Medical Branch FUROSEMIDE 2019- Yes [id number] TAKE 1 U nivers 20 mg 2-11 TABLET BY ity of tablet 00:00: MOUTH ONCE [place] [address] DAILY Medical Branch FUROSEMIDE 2019- Yes [id number] TAKE 1 U nivers 20 mg 2-11 TABLET BY ity of tablet 00:00: MOUTH ONCE [place] DAILY Medical Branch FUROSEMIDE 2019- Yes [id number] TAKE 1 U nivers 20 mg 2-11 TABLET BY ity of tablet 00:00: MOUTH ONCE [place] DAILY Medical Branch FUROSEMIDE 2019- Yes [id number] TAKE 1 U nivers 20 mg 2-11 TABLET BY ity of tablet 00:00: MOUTH ONCE [place] [address] DAILY Medical Branch FUROSEMIDE 2019- Yes [id number] TAKE 1 U nivers 20 mg 2-11 TABLET BY ity of tablet 00:00: MOUTH ONCE [place] [address] DAILY Medical Branch FUROSEMIDE 2019- 2020- No [id number] TAKE 1 Univers 20 mg 2-11 08-18 TABLET BY ity of tablet 00:00: 00:00 MOUTH ONCE [place] 00 :00 DAILY Medical Branch FUROSEMIDE 2019- 2020- No [id number] TAKE 1 Univers 20 mg 2-11 08-18 TABLET BY ity of tablet 00:00: 00:00 MOUTH ONCE [place] 00 :00 DAILY Medical Branch FUROSEMIDE 2019- 2020- No [id number] TAKE 1 Univers 20 mg 2-11 08-18 TABLET BY ity of tablet 00:00: 00:00 MOUTH ONCE [place] 00 :00 DAILY Medical Branch pantoprazol 2019- Yes [id number] 40mg Take 1 Univers e 40 mg EC 0-29 tablet by ity of tablet 00:00: mouth [place] 00 daily. Medical Branch potassium 2018-05 Yes [id number] 10meq Take 1 U nivers chloride 10 0-29 tablet by ity of mEq CR 00:00: mouth [place] tablet 00 daily. Medical Branch albuterol 2018-05 Yes [id number] 2{puff} Inhale 2 Univers 90 0-29 Puffs ity of mcg/actuati 00:00: every 6 [place] on inhaler 00 (six) Medical hours as Branch needed for Wheezing or Shortness of Breath. nitroglycer 2018-05 Yes [id number] 1 tab SL Univers in 0.4 mg 0-29 q5min up ity of sublingual 00:00: to 3 doses [place] tablet 00 PRN chest Medical pain, then Branch activate 911. DULoxetine 2018-05 Yes [id number] 30mg Take 1 Univers 30 mg 0-29 capsule by ity of capsule 00:00: mouth [place] 00 daily. Medical Branch pantoprazol 2018-05 Yes [id number] 40mg Take 1 Univers e 40 mg EC 0-29 tablet by ity of tablet 00:00: mouth [place] 00 daily. Medical Branch potassium 2018-05 Yes [id number] 10meq Take 1 U nivers chloride 10 0-29 tablet by ity of mEq CR 00:00: mouth [place] tablet 00 daily. Medical Branch albuterol 2018-05 Yes [id number] 2{puff} Inhale 2 Univers 90 0-29 Puffs ity of mcg/actuati 00:00: every 6 [place] inhaler 00 (six) Medical hours as Branch needed for Wheezing or Shortness of Breath. nitroglycer 2018-05 Yes [id number] 1 tab SL Univers in 0.4 mg 0-29 q5min up ity of sublingual 00:00: to 3 doses [place] tablet 00 PRN chest Medical pain, then Branch activate 911. DULoxetine 2018-05 Yes [id number] 30mg Take 1 Univers 30 mg 0-29 capsule by ity of capsule 00:00: mouth [place] 00 daily. Medical Branch pantoprazol 2018-05 Yes [id number] 40mg Take 1 Univers e 40 mg EC 0-29 tablet by ity of tablet 00:00: mouth [place] 00 daily. Medical Branch potassium 2018-05 Yes [id number] 10meq Take 1 U nivers chloride 10 0-29 tablet by ity of mEq CR 00:00: mouth [place] tablet 00 daily. Medical Branch albuterol 2018-05 Yes [id number] 2{puff} Inhale 2 Univers 90 0-29 Puffs ity of mcg/actuati 00:00: every 6 [place] inhaler 00 (six) Medical hours as Branch needed for Wheezing or Shortness of Breath. nitroglycer 2018-05 Yes [id number] 1 tab SL Univers in 0.4 mg 0-29 q5min up ity of sublingual 00:00: to 3 doses [place] tablet 00 PRN chest Medical pain, then Branch activate 911. DULoxetine 2018-05 Yes [id number] 30mg Take 1 Univers 30 mg 0-29 capsule by ity of capsule 00:00: mouth [place] 00 daily. Medical Branch pantoprazol 2018-05 Yes [id number] 40mg Take 1 Univers e 40 mg EC 0-29 tablet by ity of tablet 00:00: mouth [place] 00 daily. Medical Branch potassium 2018-05 Yes [id number] 10meq Take 1 U nivers chloride 10 0-29 tablet by ity of mEq CR 00:00: mouth [place] tablet 00 daily. Medical Branch albuterol 2018-05 Yes [id number] 2{puff} Inhale 2 Univers 90 0-29 Puffs ity of mcg/actuati 00:00: every 6 [place] inhaler 00 (six) Medical hours as Branch needed for Wheezing or Shortness of Breath. nitroglycer 2018-05 Yes [id number] 1 tab SL Univers in 0.4 mg 0-29 q5min up ity of sublingual 00:00: to 3 doses [place] tablet 00 PRN chest Medical pain, then Branch activate 911. DULoxetine 2018-05 Yes [id number] 30mg Take 1 Univers 30 mg 0-29 capsule by ity of capsule 00:00: mouth [place] 00 daily. Medical Branch pantoprazol 2018-05 Yes [id number] 40mg Take 1 Univers e 40 mg EC 0-29 tablet by ity of tablet 00:00: mouth [place] 00 daily. Medical Branch potassium 2018-05 Yes [id number] 10meq Take 1 U nivers chloride 10 0-29 tablet by ity of mEq CR 00:00: mouth [place] tablet 00 daily. Medical Branch albuterol 2018-05 Yes [id number] 2{puff} Inhale 2 Univers 90 0-29 Puffs ity of mcg/actuati 00:00: every 6 [place] inhaler 00 (six) Medical hours as Branch needed for Wheezing or Shortness of Breath. nitroglycer 2018-05 Yes [id number] 1 tab SL [facility] in 0.4 mg 0-29 q5min up ity of sublingual 00:00: to 3 doses [place] tablet 00 PRN chest Medical pain, then Branch activate 911. DULoxetine 2018-05 Yes [id number] 30mg Take 1 Univers 30 mg 0-29 capsule by ity of capsule 00:00: mouth [place] 00 daily. Medical Branch pantoprazol 2018-05 Yes [id number] 40mg Take 1 Univers e 40 mg EC 0-29 tablet by ity of tablet 00:00: mouth [place] 00 daily. Medical Branch potassium 2018-05 Yes [id number] 10meq Take 1 U nivers chloride 10 0-29 tablet by ity of mEq CR 00:00: mouth [place] tablet 00 daily. Medical Branch albuterol 2018-05 Yes [id number] 2{puff} Inhale 2 Univers 90 0-29 Puffs ity of mcg/actuati 00:00: every 6 [place] inhaler 00 (six) Medical hours as Branch needed for Wheezing or Shortness of Breath. nitroglycer 2018-05 Yes [id number] 1 tab SL [facility] in 0.4 mg 0-29 q5min up ity of sublingual 00:00: to 3 doses [place] tablet 00 PRN chest Medical pain, then Branch activate 911. DULoxetine 2018-05 Yes [id number] 30mg Take 1 Univers 30 mg 0-29 capsule by ity of capsule 00:00: mouth [place] 00 daily. Medical Branch pantoprazol 2018-05 Yes [id number] 40mg Take 1 Univers e 40 mg EC 0-29 tablet by ity of tablet 00:00: mouth [place] 00 daily. Medical Branch potassium 2018-05 Yes [id number] 10meq Take 1 U nivers chloride 10 0-29 tablet by ity of mEq CR 00:00: mouth [place] tablet 00 daily. Medical Branch albuterol 2018-05 Yes [id number] 2{puff} Inhale 2 Univers 90 0-29 Puffs ity of mcg/actuati 00:00: every 6 [place] inhaler 00 (six) Medical hours as Branch needed for Wheezing or Shortness of Breath. nitroglycer 2018-05 Yes [id number] 1 tab SL [facility] in 0.4 mg 0-29 q5min up ity of sublingual 00:00: to 3 doses [place] tablet 00 PRN chest Medical pain, then Branch activate 911. DULoxetine 2018-05 Yes [id number] 30mg Take 1 Univers 30 mg 0-29 capsule by ity of capsule 00:00: mouth [place] 00 daily. Medical Branch pantoprazol 2018-05 Yes [id number] 40mg Take 1 Univers e 40 mg EC 0-29 tablet by ity of tablet 00:00: mouth [place] 00 daily. Medical Branch potassium 2018-05 Yes [id number] 10meq Take 1 U nivers chloride 10 0-29 tablet by ity of mEq CR 00:00: mouth [place] tablet 00 daily. Medical Branch albuterol 2018-05 Yes [id number] 2{puff} Inhale 2 Univers 90 0-29 Puffs ity of mcg/actuati 00:00: every 6 [place] inhaler 00 (six) Medical hours as Branch needed for Wheezing or Shortness of Breath. nitroglycer 2018-05 Yes [id number] 1 tab SL [facility] in 0.4 mg 0-29 q5min up ity of sublingual 00:00: to 3 doses [place] tablet 00 PRN chest Medical pain, then Branch activate 911. DULoxetine 2018-05 Yes [id number] 30mg Take 1 Univers 30 mg 0-29 capsule by ity of capsule 00:00: mouth [place] 00 daily. Medical Branch pantoprazol 2018-05 Yes [id number] 40mg Take 1 Univers e 40 mg EC 0-29 tablet by ity of tablet 00:00: mouth [place] 00 daily. Medical Branch potassium 2018-05 Yes [id number] 10meq Take 1 U nivers chloride 10 0-29 tablet by ity of mEq CR 00:00: mouth [place] tablet 00 daily. Medical Branch albuterol 2018-05 Yes [id number] 2{puff} Inhale 2 Univers 90 0-29 Puffs ity of mcg/actuati 00:00: every 6 [place] inhaler 00 (six) Medical hours as Branch needed for Wheezing or Shortness of Breath. nitroglycer 2018-05 Yes [id number] 1 tab SL [facility] in 0.4 mg 0-29 q5min up ity of sublingual 00:00: to 3 doses [place] tablet 00 PRN chest Medical pain, then Branch activate 911. DULoxetine 2018-05 Yes [id number] 30mg Take 1 Univers 30 mg 0-29 capsule by ity of capsule 00:00: mouth [place] 00 daily. Medical Branch pantoprazol 2018-05 Yes [id number] 40mg Take 1 Univers e 40 mg EC 0-29 tablet by ity of tablet 00:00: mouth [place] 00 daily. Medical Branch potassium 2018-05 Yes [id number] 10meq Take 1 U nivers chloride 10 0-29 tablet by ity of mEq CR 00:00: mouth [place] tablet 00 daily. Medical Branch albuterol 2018-05 Yes [id number] 2{puff} Inhale 2 Univers 90 0-29 Puffs ity of mcg/actuati 00:00: every 6 [place] inhaler 00 (six) Medical hours as Branch needed for Wheezing or Shortness of Breath. nitroglycer 2018-05 Yes [id number] 1 tab SL [facility] in 0.4 mg 0-29 q5min up ity of sublingual 00:00: to 3 doses [place] tablet 00 PRN chest Medical pain, then Branch activate 911. DULoxetine 2018-05 Yes [id number] 30mg Take 1 [facility] 30 mg 0-29 capsule by ity of capsule 00:00: mouth [place] 00 daily. Medical Branch pantoprazol 2018-05 Yes [id number] 40mg Take 1 Univers e 40 mg EC 0-29 tablet by ity of tablet 00:00: mouth [place] 00 daily. Medical Branch potassium 2018-05 Yes [id number] 10meq Take 1 U nivers chloride 10 0-29 tablet by ity of mEq CR 00:00: mouth [place] tablet 00 daily. Medical Branch albuterol 2018-05 Yes [id number] 2{puff} Inhale 2 Univers 90 0-29 Puffs ity of mcg/actuati 00:00: every 6 [place] on inhaler 00 (six) Medical hours as Branch needed for Wheezing or Shortness of Breath. nitroglycer 2018-05 Yes [id number] 1 tab SL [facility] in 0.4 mg 0-29 q5min up ity of sublingual 00:00: to 3 doses [place] tablet 00 PRN chest Medical pain, then Branch activate 911. DULoxetine 2018-05 Yes [id number] 30mg Take 1 [facility] 30 mg 0-29 capsule by ity of capsule 00:00: mouth [place] 00 daily. Medical Branch pantoprazol 2018-05 Yes [id number] 40mg Take 1 Univers e 40 mg EC 0-29 tablet by ity of tablet 00:00: mouth [place] 00 daily. Medical Branch potassium 2018-05 Yes [id number] 10meq Take 1 U nivers chloride 10 0-29 tablet by ity of mEq CR 00:00: mouth [place] tablet 00 daily. [facility] albuterol 2018-05 Yes [id number] 2{puff} Inhale 2 [facility] 90 0-29 Puffs ity of mcg/actuati 00:00: every 6 [place] as on inhaler 00 (six) Medical hours as Branch needed for Wheezing or Shortness of Breath. nitroglycer 2018-05 Yes [id number] 1 tab SL [facility] in 0.4 mg 0-29 q5min up ity of sublingual 00:00: to 3 doses [place] tablet 00 PRN chest Medical pain, then Branch activate 911. DULoxetine 2018-05 Yes [id number] 30mg Take 1 [facility] 30 mg 0-29 capsule by ity of capsule 00:00: mouth [place] 00 daily. [facility] pantoprazol 2018-05 Yes [id number] 40mg Take 1 [facility] e 40 mg EC 0-29 tablet by [facility] of tablet 00:00: mouth [place] 00 daily. [facility] potassium 2018-05 Yes [id number] 10meq Take 1 [facility] nivers chloride 10 0-29 tablet by ity of mEq CR 00:00: mouth [place] tablet 00 daily. [facility] albuterol 2018-05 Yes [id number] 2{puff} Inhale 2 [facility] 90 0-29 Puffs ity of mcg/actuati 00:00: every 6 [place] [facility] on inhaler 00 (six) Medical hours as Branch needed for Wheezing or Shortness of Breath. nitroglycer 2018-05 Yes [id number] 1 tab [facility] in 0.4 mg 0-29 q5min up ity of sublingual 00:00: to 3 doses [place] tablet 00 PRN chest Medical pain, then Branch activate 911. DULoxetine 2018-05 Yes [id number] 30mg Take 1 [facility] 30 mg 0-29 capsule by [facility] of capsule 00:00: mouth [place] 00 daily. [facility] albuterol 2018-05 Yes [id number] 2{puff} Inhale 2 [facility] 90 0-29 Puffs ity of mcg/actuati 00:00: every 6 [place] [facility] on inhaler 00 (six) Medical hours as Branch needed for Wheezing or Shortness of Breath. nitroglycer 2018-05 Yes [id number] 1 tab [facility] in 0.4 mg 0-29 q5min up ity of sublingual 00:00: to 3 doses [place] tablet 00 PRN chest Medical pain, then Branch activate 911. DULoxetine 2018-05 Yes [id number] 30mg Take 1 [facility] 30 mg 0-29 capsule by [facility] of capsule 00:00: mouth [place] 00 daily. [facility] albuterol 2018-05 Yes [id number] 2{puff} Inhale 2 [facility] 90 0-29 Puffs ity of mcg/actuati 00:00: every 6 [place] [facility] on inhaler 00 (six) Medical hours as Branch needed for Wheezing or Shortness of Breath. nitroglycer 2018-05 Yes [id number] 1 tab [facility] in 0.4 mg 0-29 q5min up ity of sublingual 00:00: to 3 doses [place] tablet 00 PRN chest Medical pain, then Branch activate 911. albuterol 2018-05 Yes [id number] 2{puff} Inhale 2 [facility] 90 0-29 Puffs ity of mcg/actuati 00:00: every 6 [place] [facility] on inhaler 00 (six) Medical hours as Branch needed for Wheezing or Shortness of Breath. nitroglycer 2018-05 Yes [id number] 1 tab [facility] in 0.4 mg 0-29 q5min up it[facility] of sublingual 00:00: to 3 doses [place] tablet 00 PRN chest Medical pain, then Branch activate 911. albuterol 2018-05 Yes [id number] 2{puff} Inhale 2 [facility] 90 0-29 Puffs ity of mcg/actuati 00:00: every 6 [place] [facility] [place] inhaler 00 (six) Medical hours as Branch needed for Wheezing or Shortness of Breath. nitroglycer 2018-05 Yes [id number] 1 tab [facility] in 0.4 mg 0-29 q5min up [facility] of sublingual 00:00: to 3 doses [place] tablet 00 PRN chest Medical pain, then Branch activate 911. albuterol 2018-05 Yes [id number] 2{puff} Inhale 2 [facility] 90 0-29 Puffs ity of mcg/actuati 00:00: every 6 [place] [facility] [place] inhaler 00 (six) Medical hours as Branch needed for Wheezing or Shortness of Breath. nitroglycer 2018-05 Yes [id number] 1 tab [facility] in 0.4 mg 0-29 q5min up [facility] of sublingual 00:00: to 3 doses [place] tablet 00 PRN chest Medical pain, then Branch activate 911. albuterol 2018-05 Yes [id number] 2{puff} Inhale 2 [facility] 90 0-29 Puffs ity of mcg/actuati 00:00: every 6 [place] inhaler 00 (six) Medical hours as Branch needed for Wheezing or Shortness of Breath. nitroglycer 2018-05 Yes [id number] 1 tab [facility] in 0.4 mg 0-29 q5min up it[facility] of sublingual 00:00: to 3 doses [place] tablet 00 PRN chest Medical pain, then Branch activate 911. albuterol 2018-05 Yes [id number] 2{puff} Inhale 2 [facility] 90 0-29 Puffs ity of mcg/actuati 00:00: every 6 [place] inhaler 00 (six) Medical hours as Branch needed for Wheezing or Shortness of Breath. nitroglycer 2018-05 Yes [id number] 1 tab [facility] in 0.4 mg 0-29 q5min up ity of sublingual 00:00: to 3 doses [place] tablet 00 PRN chest Medical pain, then Branch activate 911. albuterol 2018-05 Yes [id number] 2{puff} Inhale 2 [facility] 90 0-29 Puffs ity of mcg/actuati 00:00: every 6 [place] inhaler 00 (six) Medical hours as Branch needed for Wheezing or Shortness of Breath. nitroglycer 2018-05 Yes [id number] 1 tab [facility] in 0.4 mg 0-29 q5min up ity of sublingual 00:00: to 3 doses [place] tablet 00 PRN chest Medical pain, then Branch activate 911. albuterol 2018-05 Yes [id number] 2{puff} Inhale 2 [facility] 90 0-29 Puffs ity of mcg/actuati 00:00: every 6 [place] inhaler 00 (six) Medical hours as Branch needed for Wheezing or Shortness of Breath. nitroglycer 2018-05 Yes [id number] 1 tab [facility] in 0.4 mg 0-29 q5min up ity of sublingual 00:00: to 3 doses [place] tablet 00 PRN chest Medical pain, then Branch activate 911. albuterol 2018-05 Yes [id number] 2{puff} Inhale 2 [facility] 90 0-29 Puffs ity of mcg/actuati 00:00: every 6 [place] on inhaler 00 (six) Medical hours as Branch needed for Wheezing or Shortness of Breath. nitroglycer 2018-05 Yes [id number] 1 tab SL [facility] in 0.4 mg 0-29 q5min up ity of sublingual 00:00: to 3 doses [place] tablet 00 PRN chest Medical pain, then Branch activate 911. albuterol 2018-05 Yes [id number] 2{puff} Inhale 2 [facility] 90 0-29 Puffs ity of mcg/actuati 00:00: every 6 [place] on inhaler 00 (six) Medical hours as Branch needed for Wheezing or Shortness of Breath. nitroglycer 2018-05 Yes [id number] 1 tab [facility] in 0.4 mg 0-29 q5min up ity of sublingual 00:00: to 3 doses [place] tablet 00 PRN chest Medical pain, then Branch activate 911. albuterol 2018-05 Yes [id number] 2{puff} Inhale 2 [facility] 90 0-29 Puffs ity of mcg/actuati 00:00: every 6 [place] on inhaler 00 (six) Medical hours as Branch needed for Wheezing or Shortness of Breath. nitroglycer 2018-05 Yes [id number] 1 tab [facility] in 0.4 mg 0-29 q5min up ity of sublingual 00:00: to 3 doses [place] tablet 00 PRN chest Medical pain, then Branch activate 911. albuterol 2018-05 Yes [id number] 2{puff} Inhale 2 [facility] 90 0-29 Puffs ity of mcg/actuati 00:00: every 6 [place] on inhaler 00 (six) Medical hours as Branch needed for Wheezing or Shortness of Breath. nitroglycer 2018-05 Yes [id number] 1 tab [facility] in 0.4 mg 0-29 q5min up ity of sublingual 00:00: to 3 doses [place] tablet 00 PRN chest Medical pain, then Branch activate 911. albuterol 2018-05 Yes [id number] 2{puff} Inhale 2 [facility] 90 0-29 Puffs ity of mcg/actuati 00:00: every 6 [place] on inhaler 00 (six) Medical hours as Branch needed for Wheezing or Shortness of Breath. nitroglycer 2018-05 Yes [id number] 1 tab [facility] in 0.4 mg 0-29 q5min up ity of sublingual 00:00: to 3 doses [place] tablet 00 PRN chest Medical pain, then Branch activate 911. albuterol 2018-05 Yes [id number] 2{puff} Inhale 2 [facility] 90 0-29 Puffs ity of mcg/actuati 00:00: every 6 [place] [facility] on inhaler 00 (six) Medical hours as Branch needed for Wheezing or Shortness of Breath. nitroglycer 2018-05 Yes [id number] 1 tab [facility] in 0.4 mg 0-29 q5min up ity of sublingual 00:00: to 3 doses [place] tablet 00 PRN chest Medical pain, then Branch activate 911. albuterol 2018-05 Yes [id number] 2{puff} Inhale 2 [facility] 90 0-29 Puffs ity of mcg/actuati 00:00: every 6 [place] [facility] on inhaler 00 (six) Medical hours as Branch needed for Wheezing or Shortness of Breath. nitroglycer 2018-05 Yes [id number] 1 tab [facility] in 0.4 mg 0-29 q5min up ity of sublingual 00:00: to 3 doses [place] tablet 00 PRN chest Medical pain, then Branch activate 911. albuterol 2018-05 Yes [id number] 2{puff} Inhale 2 [facility] 90 0-29 Puffs ity of mcg/actuati 00:00: every 6 [place] [facility] on inhaler 00 (six) Medical hours as Branch needed for Wheezing or Shortness of Breath. nitroglycer 2018-05 Yes [id number] 1 tab [facility] in 0.4 mg 0-29 q5min up ity of sublingual 00:00: to 3 doses [place] tablet 00 PRN chest Medical pain, then Branch activate 911. albuterol 2018-05 Yes [id number] 2{puff} Inhale 2 [facility] 90 0-29 Puffs ity of mcg/actuati 00:00: every 6 [place] [facility] on inhaler 00 (six) Medical hours as Branch needed for Wheezing or Shortness of Breath. nitroglycer 2018-05 Yes [id number] 1 tab [facility] in 0.4 mg 0-29 q5min up ity of sublingual 00:00: to 3 doses [place] tablet 00 PRN chest Medical pain, then Branch activate 911. albuterol 2018-05 Yes [id number] 2{puff} Inhale 2 [facility] 90 0-29 Puffs ity of mcg/actuati 00:00: every 6 [place] on inhaler 00 (six) Medical hours as Branch needed for Wheezing or Shortness of Breath. nitroglycer 2018-05 Yes [id number] 1 tab [facility] in 0.4 mg 0-29 q5min up ity of sublingual 00:00: to 3 doses [place] tablet 00 PRN chest Medical pain, then Branch activate 911. albuterol 2018-05 Yes [id number] 2{puff} Inhale 2 [facility] 90 0-29 Puffs ity of mcg/actuati 00:00: every 6 [place] [facility] on inhaler 00 (six) Medical hours as Branch needed for Wheezing or Shortness of Breath. nitroglycer 2018-05 Yes [id number] 1 tab [facility] in 0.4 mg 0-29 q5min up ity of sublingual 00:00: to 3 doses [place] tablet 00 PRN chest Medical pain, then Branch activate 911. albuterol 2018-05 Yes [id number] 2{puff} Inhale 2 [facility] 90 0-29 Puffs ity of mcg/actuati 00:00: every 6 [place] [facility] on inhaler 00 (six) Medical hours as Branch needed for Wheezing or Shortness of Breath. nitroglycer 2018-05 Yes [id number] 1 tab [facility] in 0.4 mg 0-29 q5min up ity of sublingual 00:00: to 3 doses [place] tablet 00 PRN chest Medical pain, then Branch activate 911. albuterol 2018-05 Yes [id number] 2{puff} Inhale 2 [facility] 90 0-29 Puffs ity of mcg/actuati 00:00: every 6 [place] [facility] on inhaler 00 (six) Medical hours as Branch needed for Wheezing or Shortness of Breath. nitroglycer 2018-05 Yes [id number] 1 tab [facility] in 0.4 mg 0-29 q5min up ity of sublingual 00:00: to 3 doses [place] tablet 00 PRN chest Medical pain, then Branch activate 911. albuterol 2018-05 Yes [id number] 2{puff} Inhale 2 [facility] 90 0-29 Puffs ity of mcg/actuati 00:00: every 6 [place] [facility] on inhaler 00 (six) Medical hours as Branch needed for Wheezing or Shortness of Breath. nitroglycer 2018-05 Yes [id number] 1 tab SL [facility] in 0.4 mg 0-29 q5min up ity of sublingual 00:00: to 3 doses [place] tablet 00 PRN chest Medical pain, then Branch activate 911. albuterol 2018-05 Yes [id number] 2{puff} Inhale 2 [facility] 90 0-29 Puffs ity of mcg/actuati 00:00: every 6 [place] [facility] on inhaler 00 (six) Medical hours as Branch needed for Wheezing or Shortness of Breath. nitroglycer 2018-05 Yes [id number] 1 tab [facility] in 0.4 mg 0-29 q5min up [facility] of sublingual 00:00: to 3 doses [place] tablet 00 PRN chest Medical pain, then Branch activate 911. albuterol 2018-05 Yes [id number] 2{puff} Inhale 2 [facility] 90 0-29 Puffs ity of mcg/actuati 00:00: every 6 [place] [facility] on inhaler 00 (six) Medical hours as Branch needed for Wheezing or Shortness of Breath. nitroglycer 2018-05 Yes [id number] 1 tab [facility] in 0.4 mg 0-29 q5min up ity of sublingual 00:00: to 3 doses [place] tablet 00 PRN chest Medical pain, then Branch activate 911. nitroglycer 2018-05 Yes [id number] 1 tab [facility] in 0.4 mg 0-29 q5min up ity of sublingual 00:00: to 3 doses [place] tablet 00 PRN chest Medical pain, then Branch activate 911. nitroglycer 2018-05 Yes [id number] 1 tab [facility] in 0.4 mg 0-29 q5min up ity of sublingual 00:00: to 3 doses [place] tablet 00 PRN chest Medical pain, then Branch activate 911. nitroglycer 2018-05 Yes [id number] 1 tab [facility] in 0.4 mg 0-29 q5min up ity of sublingual 00:00: to 3 doses [place] tablet 00 PRN chest Medical pain, then Branch activate 911. nitroglycer 2018-05 Yes [id number] 1 tab SL [facility] in 0.4 mg 0-29 q5min up ity of sublingual 00:00: to 3 doses [place] tablet 00 PRN chest Medical pain, then Branch activate 911. nitroglycer 2018-05 Yes [id number] 1 tab [facility] in 0.4 mg 0-29 q5min up ity of sublingual 00:00: to 3 doses [place] tablet 00 PRN chest Medical pain, then Branch activate 911. nitroglycer 2018-05 Yes [id number] 1 tab SL [facility] in 0.4 mg 0-29 q5min up ity of sublingual 00:00: to 3 doses [place] tablet 00 PRN chest Medical pain, then Branch activate 911. nitroglycer 2018-05 Yes [id number] 1 tab SL [facility] in 0.4 mg 0-29 q5min up ity of sublingual 00:00: to 3 doses [place] tablet 00 PRN chest Medical pain, then Branch activate 911. nitroglycer 2018-05 Yes [id number] 1 tab SL [facility] in 0.4 mg 0-29 q5min up ity of sublingual 00:00: to 3 doses [place] tablet 00 PRN chest Medical pain, then Branch activate 911. nitroglycer 2018-05 Yes [id number] 1 tab SL [facility] in 0.4 mg 0-29 q5min up ity of sublingual 00:00: to 3 doses [place] tablet 00 PRN chest Medical pain, then Branch activate 911. nitroglycer 2018-05 Yes [id number] 1 tab SL [facility] in 0.4 mg 0-29 q5min up ity of sublingual 00:00: to 3 doses [place] tablet 00 PRN chest Medical pain, then Branch activate 911. nitroglycer 2018-05 Yes [id number] 1 tab [facility] in 0.4 mg 0-29 q5min up ity of sublingual 00:00: to 3 doses [place] tablet 00 PRN chest Medical pain, then Branch activate 911. nitroglycer 2018-05 Yes [id number] 1 tab [facility] in 0.4 mg 0-29 q5min up ity of sublingual 00:00: to 3 doses [place] tablet 00 PRN chest Medical pain, then Branch activate 911. nitroglycer 2018-05 Yes [id number] 1 tab [facility] in 0.4 mg 0-29 q5min up ity of sublingual 00:00: to 3 doses [place] tablet 00 PRN chest Medical pain, then Branch activate 911. nitroglycer 2018-05 Yes [id number] 1 tab [facility] in 0.4 mg 0-29 q5min up ity of sublingual 00:00: to 3 doses [place] tablet 00 PRN chest Medical pain, then Branch activate 911. nitroglycer 2018-05 Yes [id number] 1 tab [facility] in 0.4 mg 0-29 q5min up ity of sublingual 00:00: to 3 doses [place] tablet 00 PRN chest Medical pain, then Branch activate 911. nitroglycer 2018-05 Yes [id number] 1 tab [facility] in 0.4 mg 0-29 q5min up ity of sublingual 00:00: to 3 doses [place] tablet 00 PRN chest Medical pain, then Branch activate 911. nitroglycer 2018-05 Yes [id number] 1 tab SL [facility] in 0.4 mg 0-29 q5min up ity of sublingual 00:00: to 3 doses [place] tablet 00 PRN chest Medical pain, then Branch activate 911. nitroglycer 2018-05 Yes [id number] 1 tab [facility] in 0.4 mg 0-29 q5min up ity of sublingual 00:00: to 3 doses [place] tablet 00 PRN chest Medical pain, then Branch activate 911. nitroglycer 2018-05 Yes [id number] 1 tab SL [facility] in 0.4 mg 0-29 q5min up ity of sublingual 00:00: to 3 doses [place] tablet 00 PRN chest Medical pain, then Branch activate 911. nitroglycer 2018-05 Yes [id number] 1 tab SL [facility] in 0.4 mg 0-29 q5min up ity of sublingual 00:00: to 3 doses [place] tablet 00 PRN chest Medical pain, then Branch activate 911. nitroglycer 2018-05 Yes [id number] 1 tab SL [facility] in 0.4 mg 0-29 q5min up ity of sublingual 00:00: to 3 doses [place] tablet 00 PRN chest Medical pain, then Branch activate 911. nitroglycer 2018-05 Yes [id number] 1 tab SL [facility] in 0.4 mg 0-29 q5min up ity of sublingual 00:00: to 3 doses [place] tablet 00 PRN chest Medical pain, then Branch activate 911. nitroglycer 2018-05 Yes [id number] 1 tab SL [facility] in 0.4 mg 0-29 q5min up ity of sublingual 00:00: to 3 doses [place] tablet 00 PRN chest Medical pain, then Branch activate 911. nitroglycer 2018-05 Yes [id number] 1 tab [facility] in 0.4 mg 0-29 q5min up ity of sublingual 00:00: to 3 doses [place] tablet 00 PRN chest Medical pain, then Branch activate 911. nitroglycer 2018-05 Yes [id number] 1 tab SL [facility] in 0.4 mg 0-29 q5min up ity of sublingual 00:00: to 3 doses [place] tablet 00 PRN chest Medical pain, then Branch activate 911. nitroglycer 2018-05 Yes [id number] 1 tab SL [facility] in 0.4 mg 0-29 q5min up ity of sublingual 00:00: to 3 doses [place] tablet 00 PRN chest Medical pain, then Branch activate 911. nitroglycer 2018-05 Yes [id number] 1 tab SL [facility] in 0.4 mg 0-29 q5min up ity of sublingual 00:00: to 3 doses [place] tablet 00 PRN chest Medical pain, then Branch activate 911. nitroglycer 2018-05 Yes [id number] 1 tab SL [facility] in 0.4 mg 0-29 q5min up ity of sublingual 00:00: to 3 doses [place] tablet 00 PRN chest Medical pain, then Branch activate 911. nitroglycer 2018-05 Yes [id number] 1 tab SL [facility] in 0.4 mg 0-29 q5min up ity of sublingual 00:00: to 3 doses [place] tablet 00 PRN chest Medical pain, then Branch activate 911. nitroglycer 2018-05 Yes [id number] 1 tab SL [facility] in 0.4 mg 0-29 q5min up ity of sublingual 00:00: to 3 doses [place] tablet 00 PRN chest Medical pain, then Branch activate 911. nitroglycer 2018-05 Yes [id number] 1 tab SL [facility] in 0.4 mg 0-29 q5min up ity of sublingual 00:00: to 3 doses [place] tablet 00 PRN chest Medical pain, then Branch activate 911. nitroglycer 2018-05 Yes [id number] 1 tab SL [facility] in 0.4 mg 0-29 q5min up ity of sublingual 00:00: to 3 doses [place] tablet 00 PRN chest Medical pain, then Branch activate 911. nitroglycer 2018-05 Yes [id number] 1 tab SL [facility] in 0.4 mg 0-29 q5min up ity of sublingual 00:00: to 3 doses [place] tablet 00 PRN chest Medical pain, then Branch activate 911. nitroglycer 2018-05 Yes [id number] 1 tab SL [facility] in 0.4 mg 0-29 q5min up ity of sublingual 00:00: to 3 doses [place] tablet 00 PRN chest Medical pain, then Branch activate 911. nitroglycer 2018-05 Yes [id number] 1 tab SL [facility] in 0.4 mg 0-29 q5min up ity of sublingual 00:00: to 3 doses [place] tablet 00 PRN chest Medical pain, then Branch activate 911. nitroglycer 2018-05 Yes [id number] 1 tab SL [facility] in 0.4 mg 0-29 q5min up ity of sublingual 00:00: to 3 doses [place] tablet 00 PRN chest Medical pain, then Branch activate 911. nitroglycer 2018-05 Yes [id number] 1 tab SL [facility] in 0.4 mg 0-29 q5min up ity of sublingual 00:00: to 3 doses [place] tablet 00 PRN chest Medical pain, then Branch activate 911. nitroglycer 2018-05 Yes [id number] 1 tab [facility] in 0.4 mg 0-29 q5min up ity of sublingual 00:00: to 3 doses [place] tablet 00 PRN chest Medical pain, then Branch activate 911. nitroglycer 2018-05 Yes [id number] 1 tab SL [facility] in 0.4 mg 0-29 q5min up ity of sublingual 00:00: to 3 doses [place] tablet 00 PRN chest Medical pain, then Branch activate 911. nitroglycer 2018-05 Yes [id number] 1 tab [facility] in 0.4 mg 0-29 q5min up ity of sublingual 00:00: to 3 doses [place] tablet 00 PRN chest Medical pain, then Branch activate 911. nitroglycer 2018-05 Yes [id number] 1 tab [facility] in 0.4 mg 0-29 q5min up ity of sublingual 00:00: to 3 doses [place] tablet 00 PRN chest Medical pain, then Branch activate 911. nitroglycer 2018-05 Yes [id number] 1 tab [facility] in 0.4 mg 0-29 q5min up ity of sublingual 00:00: to 3 doses [place] tablet 00 PRN chest Medical pain, then Branch activate 911. nitroglycer 2018-05 Yes [id number] 1 tab [facility] in 0.4 mg 0-29 q5min up ity of sublingual 00:00: to 3 doses [place] tablet 00 PRN chest Medical pain, then Branch activate 911. nitroglycer 2018-05 Yes [id number] 1 tab [facility] in 0.4 mg 0-29 q5min up ity of sublingual 00:00: to 3 doses [place] tablet 00 PRN chest Medical pain, then Branch activate 911. nitroglycer 2018-05 Yes [id number] 1 tab [facility] in 0.4 mg 0-29 q5min up ity of sublingual 00:00: to 3 doses [place] tablet 00 PRN chest Medical pain, then Branch activate 911. nitroglycer 2018-05 Yes [id number] 1 tab [facility] in 0.4 mg 0-29 q5min up ity of sublingual 00:00: to 3 doses [place] tablet 00 PRN chest Medical pain, then Branch activate 911. nitroglycer 2018-05 Yes [id number] 1 tab SL [facility] in 0.4 mg 0-29 q5min up ity of sublingual 00:00: to 3 doses [place] tablet 00 PRN chest Medical pain, then Branch activate 911. atorvastati 2018-05 Yes [id number] 40mg Take 1 [facility] n (LIPITOR) 0-29 tablet by ity of 40 mg 00:00: mouth at [place] tablet 00 bedtime. [facility] clopidogrel 2018-05 Yes [id number] 75mg Take 1 [facility] (PLAVIX) 75 0-29 tablet by ity of mg tablet 00:00: mouth [place] 00 daily. [facility] DULoxetine 2018-05 Yes [id number] 30mg Take 1 [facility] 30 mg 0-29 capsule by ity of capsule 00:00: mouth [place] 00 daily. [facility] pantoprazol 2018-05 Yes [id number] 40mg Take 1 [facility] e 40 mg EC 0-29 tablet by [facility]y of tablet 00:00: mouth [place] 00 daily. [facility] potassium 2018-05 Yes [id number] 10meq Take 1 [facility] n[facility] chloride 10 0-29 tablet by ity of mEq CR 00:00: mouth [place] tablet 00 daily. [facility] albuterol 2018-05 Yes [id number] 2{puff} Inhale 2 [facility] 90 0-29 Puffs ity of mcg/actuati 00:00: every 6 [place] on inhaler 00 (six) Medical hours as Branch needed for Wheezing or Shortness of Breath. nitroglycer 2018-05 Yes [id number] 1 tab SL [facility] in 0.4 mg 0-29 q5min up ity of sublingual 00:00: to 3 doses [place] tablet 00 PRN chest Medical pain, then Branch activate 911. atorvastati 2018-05 Yes [id number] 40mg Take 1 [facility] n (LIPITOR) 0-29 tablet by ity of 40 mg 00:00: mouth at [place] tablet 00 bedtime. [facility] clopidogrel 2018-05 Yes [id number] 75mg Take 1 [facility] (PLAVIX) 75 0-29 tablet by ity of mg tablet 00:00: mouth [place] 00 daily. [facility] DULoxetine 2018-05 Yes [id number] 30mg Take 1 [facility] 30 mg 0-29 capsule by ity of capsule 00:00: mouth [place] 00 daily. [facility] pantoprazol 2018-05 Yes [id number] 40mg Take 1 [facility] e 40 mg EC 0-29 tablet by ity of tablet 00:00: mouth [place] 00 daily. [facility] potassium 2018-05 Yes [id number] 10meq Take 1 [facility] nivers chloride 10 0-29 tablet by ity of mEq CR 00:00: mouth [place] tablet 00 daily. [facility] albuterol 2018-05 Yes [id number] 2{puff} Inhale 2 [facility] 90 0-29 Puffs ity of mcg/actuati 00:00: every 6 [place] on inhaler 00 (six) Medical hours as Branch needed for Wheezing or Shortness of Breath. nitroglycer 2018-05 Yes [id number] 1 tab SL [facility] in 0.4 mg 0-29 q5min up ity of sublingual 00:00: to 3 doses [place] tablet 00 PRN chest Medical pain, then Branch activate 911. atorvastati 2018-05 Yes [id number] 40mg Take 1 [facility] n (LIPITOR) 0-29 tablet by ity of 40 mg 00:00: mouth at [place] tablet 00 bedtime. [facility] clopidogrel 2018-05 Yes [id number] 75mg Take 1 [facility] (PLAVIX) 75 0-29 tablet by ity of mg tablet 00:00: mouth [place] 00 daily. [facility] DULoxetine 2018-05 Yes [id number] 30mg Take 1 [facility] 30 mg 0-29 capsule by ity of capsule 00:00: mouth [place] 00 daily. [facility] pantoprazol 2018-05 Yes [id number] 40mg Take 1 [facility] e 40 mg EC 0-29 tablet by ity of tablet 00:00: mouth [place] 00 daily. [facility] potassium 2018-05 Yes [id number] 10meq Take 1 [facility] n[facility] chloride 10 0-29 tablet by ity of mEq CR 00:00: mouth [place] tablet 00 daily. [facility] albuterol 2018-05 Yes [id number] 2{puff} Inhale 2 [facility] 90 0-29 Puffs ity of mcg/actuati 00:00: every 6 [place] on inhaler 00 (six) Medical hours as Branch needed for Wheezing or Shortness of Breath. nitroglycer 2018-05 Yes [id number] 1 tab SL [facility] in 0.4 mg 0-29 q5min up ity of sublingual 00:00: to 3 doses [place] tablet 00 PRN chest Medical pain, then Branch activate 911. atorvastati 2018-05 Yes [id number] 40mg Take 1 [facility] n (LIPITOR) 0-29 tablet by ity of 40 mg 00:00: mouth at [place] tablet 00 bedtime. [facility] clopidogrel 2018-05 Yes [id number] 75mg Take 1 [facility] (PLAVIX) 75 0-29 tablet by ity of mg tablet 00:00: mouth [place] 00 daily. [facility] DULoxetine 2018-05 Yes [id number] 30mg Take 1 [facility] 30 mg 0-29 capsule by ity of capsule 00:00: mouth [place] 00 daily. [facility] pantoprazol 2018-05 Yes [id number] 40mg Take 1 [facility] e 40 mg EC 0-29 tablet by ity of tablet 00:00: mouth [place] 00 daily. [facility] potassium 2018-05 Yes [id number] 10meq Take 1 [facility] nivers chloride 10 0-29 tablet by ity of mEq CR 00:00: mouth [place] tablet 00 daily. [facility] albuterol 2018-05 Yes [id number] 2{puff} Inhale 2 [facility] 90 0-29 Puffs ity of mcg/actuati 00:00: every 6 [place] [facility] on inhaler 00 (six) Medical hours as Branch needed for Wheezing or Shortness of Breath. nitroglycer 2018-05 Yes [id number] 1 tab SL [facility] in 0.4 mg 0-29 q5min up ity of sublingual 00:00: to 3 doses [place] tablet 00 PRN chest Medical pain, then Branch activate 911. atorvastati 2018-05 Yes [id number] 40mg Take 1 [facility] n (LIPITOR) 0-29 tablet by ity of 40 mg 00:00: mouth at [place] tablet 00 bedtime. [facility] clopidogrel 2018-05 Yes [id number] 75mg Take 1 [facility] (PLAVIX) 75 0-29 tablet by ity of mg tablet 00:00: mouth [place] 00 daily. [facility] DULoxetine 2018-05 Yes [id number] 30mg Take 1 [facility] 30 mg 0-29 capsule by ity of capsule 00:00: mouth [place] 00 daily. [facility] pantoprazol 2018-05 Yes [id number] 40mg Take 1 [facility] e 40 mg EC 0-29 tablet by [facility] of tablet 00:00: mouth [place] 00 daily. [facility] potassium 2018-05 Yes [id number] 10meq Take 1 [facility] n[facility] chloride 10 0-29 tablet by ity of mEq CR 00:00: mouth [place] tablet 00 daily. [facility] albuterol 2018-05 Yes [id number] 2{puff} Inhale 2 [facility] 90 0-29 Puffs ity of mcg/actuati 00:00: every 6 [place] on inhaler 00 (six) Medical hours as Branch needed for Wheezing or Shortness of Breath. nitroglycer 2018-05 Yes [id number] 1 tab SL [facility] in 0.4 mg 0-29 q5min up ity of sublingual 00:00: to 3 doses [place] tablet 00 PRN chest Medical pain, then Branch activate 911. atorvastati 2018-05 Yes [id number] 40mg Take 1 [facility] n (LIPITOR) 0-29 tablet by ity of 40 mg 00:00: mouth at [place] tablet 00 bedtime. [facility] clopidogrel 2018-05 Yes [id number] 75mg Take 1 [facility] (PLAVIX) 75 0-29 tablet by ity of mg tablet 00:00: mouth [place] 00 daily. [facility] DULoxetine 2018-05 Yes [id number] 30mg Take 1 [facility] 30 mg 0-29 capsule by it[facility] of capsule 00:00: mouth [place] 00 daily. [facility] pantoprazol 2018-05 Yes [id number] 40mg Take 1 [facility] e 40 mg EC 0-29 tablet by ity of tablet 00:00: mouth [place] 00 daily. [facility] potassium 2018-05 Yes [id number] 10meq Take 1 [facility] n[facility] chloride 10 0-29 tablet by ity of mEq CR 00:00: mouth [place] tablet 00 daily. [facility] albuterol 2018-05 Yes [id number] 2{puff} Inhale 2 [facility] 90 0-29 Puffs ity of mcg/actuati 00:00: every 6 [place] inhaler 00 (six) Medical hours as Branch needed for Wheezing or Shortness of Breath. nitroglycer 2018-05 Yes [id number] 1 tab SL [facility] in 0.4 mg 0-29 q5min up ity of sublingual 00:00: to 3 doses [place] tablet 00 PRN chest Medical pain, then Branch activate 911. atorvastati 2018-05 Yes [id number] 40mg Take 1 [facility] n (LIPITOR) 0-29 tablet by ity of 40 mg 00:00: mouth at [place] tablet 00 bedtime. [facility] clopidogrel 2018-05 Yes [id number] 75mg Take 1 [facility] (PLAVIX) 75 0-29 tablet by ity of mg tablet 00:00: mouth [place] 00 daily. [facility] DULoxetine 2018-05 Yes [id number] 30mg Take 1 [facility] 30 mg 0-29 capsule by it[facility] of capsule 00:00: mouth [place] 00 daily. [facility] pantoprazol 2018-05 Yes [id number] 40mg Take 1 [facility] e 40 mg EC 0-29 tablet by ity of tablet 00:00: mouth [place] 00 daily. [facility] potassium 2018-05 Yes [id number] 10meq Take 1 [facility] chloride 10 0-29 tablet by ity of mEq CR 00:00: mouth [place] tablet 00 daily. [facility] albuterol 2018-05 Yes [id number] 2{puff} Inhale 2 [facility] 90 0-29 Puffs ity of mcg/actuati 00:00: every 6 [place] inhaler 00 (six) Medical hours as Branch needed for Wheezing or Shortness of Breath. nitroglycer 2018-05 Yes [id number] 1 tab SL [facility] in 0.4 mg 0-29 q5min up it[facility] of sublingual 00:00: to 3 doses [place] tablet 00 PRN chest Medical pain, then Branch activate 911. DULoxetine 2018-05 Yes [id number] 30mg Take 1 [facility] 30 mg 0-29 capsule by ity of capsule 00:00: mouth [place] 00 daily. [facility] pantoprazol 2018-05 Yes [id number] 40mg Take 1 [facility] e 40 mg EC 0-29 tablet by ity of tablet 00:00: mouth [place] 00 daily. [facility] potassium 2018-05 Yes [id number] 10meq Take 1 [facility] chloride 10 0-29 tablet by ity of mEq CR 00:00: mouth [place] tablet 00 daily. [facility] albuterol 2018-05 Yes [id number] 2{puff} Inhale 2 [facility] 90 0-29 Puffs ity of mcg/actuati 00:00: every 6 [place] inhaler 00 (six) Medical hours as Branch needed for Wheezing or Shortness of Breath. nitroglycer 2018-05 Yes [id number] 1 tab SL [facility] in 0.4 mg 0-29 q5min up ity of sublingual 00:00: to 3 doses [place] tablet 00 PRN chest Medical pain, then Branch activate 911. DULoxetine 2018-05 Yes [id number] 30mg Take 1 [facility] 30 mg 0-29 capsule by ity of capsule 00:00: mouth [place] 00 daily. [facility] pantoprazol 2018-05 Yes [id number] 40mg Take 1 [facility] e 40 mg EC 0-29 tablet by ity of tablet 00:00: mouth [place] 00 daily. [facility] potassium 2018-05 Yes [id number] 10meq Take 1 [facility] chloride 10 0-29 tablet by ity of mEq CR 00:00: mouth [place] tablet 00 daily. [facility] albuterol 2018-05 Yes [id number] 2{puff} Inhale 2 [facility] 90 0-29 Puffs ity of mcg/actuati 00:00: every 6 [place] inhaler 00 (six) Medical hours as Branch needed for Wheezing or Shortness of Breath. nitroglycer 2018-05 Yes [id number] 1 tab SL [facility] in 0.4 mg 0-29 q5min up ity of sublingual 00:00: to 3 doses [place] tablet 00 PRN chest Medical pain, then Branch activate 911. DULoxetine 2018-05 Yes [id number] 30mg Take 1 [facility] 30 mg 0-29 [...] Bran ch activate 911. albuterol 2018-05- No [id number] 2{puff} Inhale 2 [facility] 90 0-29 12-19 Puffs ity of mcg/actuati 00:00: 00:00 every 6 [place] on inhaler 00 :00 (six) Medical hours as Branch needed for Wheezing or Shortness of Breath. albuterol 2018-05 2020- No [id number] 2{puff} Inhale 2 [facility] 90 0-29 12-19 Puffs ity of mcg/actuati 00:00: 00:00 every 6 [place] on inhaler 00 :00 (six) Medical hours as Branch needed for Wheezing or Shortness of Breath. pantoprazol 2018-05 2020- No [id number] 40mg Take 1 [facility] e 40 mg EC -08 tablet by ity of tablet 00:00: 00:00 mouth [place] 00 :00 daily. [facility] potassium 2018-05 2020- No [id number] 10meq Take 1 [facility] chloride 10 -08 tablet by it y of mEq CR 00:00: 00:00 mouth [place] tablet 00 :00 daily. [facility] atorvastati 2018-05 2020- No [id number] 40mg Take 1 [facility] n (LIPITOR) 03-20 tablet by it y of 40 mg 00:00: 00:00 mouth at [place] tablet 00 :00 bedtime. [facility] clopidogrel 2018-05 2020- No [id number] 75mg Take 1 [facility] (PLAVIX) 75 0-29 [...] mouth ity of LOW DOSE) 15:12: daily. [place] 81 mg EC 10 Medical tablet Branch [...] 10 Medical tablet Branch atorvastati 0 Yes [id number] 40mg Take 1 [facility] n (LIPITOR) 7-05 tablet by ity of 40 mg 00:00: mouth at [place] tablet 00 bedtime. [facility] DULoxetine 2019-0 Yes [id number] 30mg Take 1 [facility] 30 mg 7-05 capsule by ity of capsule 00:00: mouth [place] 00 daily. [facility] clopidogrel 2018- Yes [id number] 75mg Take 1 [facility] (PLAVIX) 75 7-05 tablet by ity of mg tablet 00:00: mouth [place] 00 daily. [facility] furosemide 2019-0 Yes [id number] 20mg Take 1 [facility] (LASIX) 20 7-05 tablet by ity of mg tablet 00:00: mouth [place] 00 daily. [facility] isosorbide 2019- Yes [id number] 30mg Take 1 [facility] mononitrate 7-05 tablet by ity of 30 mg 24 hr 00:00: mouth [place] tablet 00 daily. [facility] metoprolol 2019 Yes [id number] 25mg Take 1 [facility] n[facility] tartrate 25 7-05 tablet by ity of mg tablet 00:00: mouth [place] 00 daily. [facility] fluconazole 2019- Yes [id number] 150mg Take 1 [facility] (DIFLUCAN) 7-05 tablet by ity of 150 mg 00:00: mouth [place] tablet 00 SEE-INSTRU Medical CTIONS. 1 Branch PO weekly/PRN yeast infection atorvastati Yes [id number] 40mg Take 1 [facility] n (LIPITOR) 7-05 tablet by ity of 40 mg 00:00: mouth at [place] tablet 00 bedtime. [facility] DULoxetine Yes [id number] 30mg Take 1 [facility] 30 mg 7-05 capsule by ity of capsule 00:00: mouth [place] 00 daily. [facility] clopidogrel Yes [id number] 75mg Take 1 [facility] (PLAVIX) 75 7-05 tablet by ity of mg tablet 00:00: mouth [place] 00 daily. [facility] furosemide Yes [id number] 20mg Take 1 [facility] (LASIX) 20 7-05 tablet by ity of mg tablet 00:00: mouth [place] 00 daily. [facility] isosorbide Yes [id number] 30mg Take 1 [facility] mononitrate 7-05 tablet by ity of 30 mg 24 hr 00:00: mouth [place] tablet 00 daily. [facility] metoprolol Yes [id number] 25mg Take 1 [facility] tartrate 25 7-05 tablet by ity of mg tablet 00:00: mouth [place] 00 daily. [facility] fluconazole Yes [id number] 150mg Take 1 [facility] (DIFLUCAN) 7-05 tablet by ity of 150 mg 00:00: mouth [place] tablet 00 SEE-INSTRU Medical CTIONS. 1 Branch PO weekly/PRN yeast infection atorvastati Yes [id number] 40mg Take 1 [facility] n (LIPITOR) 7-05 tablet by ity of 40 mg 00:00: mouth at [place] tablet 00 bedtime. [facility] DULoxetine Yes [id number] 30mg Take 1 [facility] 30 mg 7-05 capsule by ity of capsule 00:00: mouth [place] 00 daily. [facility] clopidogrel Yes [id number] 75mg Take 1 [facility] (PLAVIX) 75 7-05 tablet by ity of mg tablet 00:00: mouth [place] 00 daily. [facility] furosemide 2019-0 Yes [id number] 20mg Take 1 [facility] (LASIX) 20 7-05 tablet by ity of mg tablet 00:00: mouth [place] 00 daily. [facility] isosorbide 2019- Yes [id number] 30mg Take 1 [facility] mononitrate 7-05 tablet by ity of 30 mg 24 hr 00:00: mouth [place] tablet 00 daily. [facility] metoprolol 2019- Yes [id number] 25mg Take 1 [facility] tartrate 25 7-05 tablet by ity of mg tablet 00:00: mouth [place] 00 daily. [facility] fluconazole 2019- Yes [id number] 150mg Take 1 [facility] (DIFLUCAN) 7-05 tablet by ity of 150 mg 00:00: mouth [place] tablet 00 SEE-INSTRU Medical CTIONS. 1 Branch PO weekly/PRN yeast infection atorvastati 2019-0 Yes [id number] 40mg Take 1 [facility] n (LIPITOR) 7-05 tablet by ity of 40 mg 00:00: mouth at [place] tablet 00 bedtime. [facility] DULoxetine 2019- Yes [id number] 30mg Take 1 [facility] 30 mg 7-05 capsule by ity of capsule 00:00: mouth [place] 00 daily. [facility] clopidogrel 2019-0 Yes [id number] 75mg Take 1 [facility] (PLAVIX) 75 7-05 tablet by ity of mg tablet 00:00: mouth [place] 00 daily. [facility] furosemide 2019- Yes [id number] 20mg Take 1 [facility] n[facility] (LASIX) 20 7-05 tablet by ity of mg tablet 00:00: mouth [place] 00 daily. [facility] isosorbide 2019- Yes [id number] 30mg Take 1 [facility] mononitrate 7-05 tablet by ity of 30 mg 24 hr 00:00: mouth [place] tablet 00 daily. [facility] metoprolol 2019- Yes [id number] 25mg Take 1 [facility] nivers tartrate 25 7-05 tablet by ity of mg tablet 00:00: mouth [place] 00 daily. [facility] fluconazole 2019-0 Yes [id number] 150mg Take 1 [facility] (DIFLUCAN) 7-05 tablet by ity of 150 mg 00:00: mouth [place] tablet 00 SEE-INSTRU Medical CTIONS. 1 Branch PO weekly/PRN yeast infection atorvastati 2019- Yes [id number] 40mg Take 1 [facility] n (LIPITOR) 7-05 tablet by ity of 40 mg 00:00: mouth at [place] tablet 00 bedtime. [facility] DULoxetine 2019 Yes [id number] 30mg Take 1 [facility] 30 mg 7-05 capsule by ity of capsule 00:00: mouth [place] 00 daily. [facility] clopidogrel Yes [id number] 75mg Take 1 [facility] (PLAVIX) 75 7-05 tablet by ity of mg tablet 00:00: mouth [place] 00 daily. [facility] furosemide Yes [id number] 20mg Take 1 [facility] n[facility] (LASIX) 20 7-05 tablet by ity of mg tablet 00:00: mouth [place] 00 daily. [facility] isosorbide Yes [id number] 30mg Take 1 [facility] mononitrate 7-05 tablet by ity of 30 mg 24 hr 00:00: mouth [place] tablet 00 daily. [facility] metoprolol Yes [id number] 25mg Take 1 [facility] n[facility] tartrate 25 7-05 tablet by ity of mg tablet 00:00: mouth [place] 00 daily. [facility] fluconazole Yes [id number] 150mg Take 1 [facility] (DIFLUCAN) 7-05 tablet by ity of 150 mg 00:00: mouth [place] tablet 00 SEE-INSTRU Medical CTIONS. 1 Branch PO weekly/PRN yeast infection atorvastati Yes [id number] 40mg Take 1 [facility] n (LIPITOR) 7-05 tablet by ity of 40 mg 00:00: mouth at [place] tablet 00 bedtime. [facility] DULoxetine Yes [id number] 30mg Take 1 [facility] 30 mg 7-05 capsule by ity of capsule 00:00: mouth [place] 00 daily. [facility] clopidogrel Yes [id number] 75mg Take 1 [facility] (PLAVIX) 75 7-05 tablet by ity of mg tablet 00:00: mouth [place] 00 daily. [facility] furosemide Yes [id number] 20mg Take 1 [facility] (LASIX) 20 7-05 tablet by ity of mg tablet 00:00: mouth [place] 00 daily. [facility] isosorbide Yes [id number] 30mg Take 1 [facility] mononitrate 7-05 tablet by ity of 30 mg 24 hr 00:00: mouth [place] tablet 00 daily. [facility] metoprolol 2019 Yes [id number] 25mg Take 1 [facility] n[facility] tartrate 25 7-05 tablet by ity of mg tablet 00:00: mouth [place] 00 daily. [facility] fluconazole 2019- Yes [id number] 150mg Take 1 [facility] (DIFLUCAN) 7-05 tablet by ity of 150 mg 00:00: mouth [place] tablet 00 SEE-INSTRU Medical CTIONS. 1 Branch PO weekly/PRN yeast infection atorvastati Yes [id number] 40mg Take 1 [facility] n (LIPITOR) 7-05 tablet by ity of 40 mg 00:00: mouth at [place] tablet 00 bedtime. [facility] DULoxetine Yes [id number] 30mg Take 1 [facility] 30 mg 7-05 capsule by ity of capsule 00:00: mouth [place] 00 daily. [facility] clopidogrel Yes [id number] 75mg Take 1 [facility] (PLAVIX) 75 7-05 tablet by ity of mg tablet 00:00: mouth [place] 00 daily. [facility] furosemide Yes [id number] 20mg Take 1 [facility] (LASIX) 20 7-05 tablet by ity of mg tablet 00:00: mouth [place] 00 daily. [facility] isosorbide Yes [id number] 30mg Take 1 [facility] mononitrate 7-05 tablet by ity of 30 mg 24 hr 00:00: mouth [place] tablet 00 daily. [facility] metoprolol Yes [id number] 25mg Take 1 [facility] n[facility] tartrate 25 7-05 tablet by ity of mg tablet 00:00: mouth [place] 00 daily. [facility] fluconazole Yes [id number] 150mg Take 1 [facility] (DIFLUCAN) 7-05 tablet by ity of 150 mg 00:00: mouth [place] tablet 00 SEE-INSTRU Medical CTIONS. 1 Branch PO weekly/PRN yeast infection atorvastati Yes [id number] 40mg Take 1 [facility] n (LIPITOR) 7-05 tablet by ity of 40 mg 00:00: mouth at [place] tablet 00 bedtime. [facility] DULoxetine Yes [id number] 30mg Take 1 [facility] 30 mg 7-05 capsule by ity of capsule 00:00: mouth [place] 00 daily. [facility] clopidogrel Yes [id number] 75mg Take 1 [facility] (PLAVIX) 75 7-05 tablet by ity of mg tablet 00:00: mouth [place] 00 daily. [facility] furosemide 2019- Yes [id number] 20mg Take 1 [facility] (LASIX) 20 7-05 tablet by ity of mg tablet 00:00: mouth [place] 00 daily. [facility] isosorbide Yes [id number] 30mg Take 1 [facility] mononitrate 7-05 tablet by ity of 30 mg 24 hr 00:00: mouth [place] tablet 00 daily. [facility] metoprolol Yes [id number] 25mg Take 1 [facility] nivers tartrate 25 7-05 tablet by ity of mg tablet 00:00: mouth [place] 00 daily. [facility] fluconazole Yes [id number] 150mg Take 1 [facility] (DIFLUCAN) 7-05 tablet by ity of 150 mg 00:00: mouth [place] tablet 00 SEE-INSTRU Medical CTIONS. 1 Branch PO weekly/PRN yeast infection metoprolol Yes [id number] 25mg Take 1 [facility] nivers tartrate 25 7-05 tablet by ity of mg tablet 00:00: mouth [place] 00 daily. [facility] metoprolol Yes [id number] 25mg Take 1 [facility] tartrate 25 7-05 tablet by ity of mg tablet 00:00: mouth [place] 00 daily. [facility] metoprolol Yes [id number] 25mg Take 1 [facility] tartrate 25 7-05 tablet by ity of mg tablet 00:00: mouth [place] 00 daily. [facility] metoprolol Yes [id number] 25mg Take 1 [facility] n[facility] tartrate 25 7-05 tablet by ity of mg tablet 00:00: mouth [place] 00 daily. [facility] metoprolol Yes [id number] 25mg Take 1 [facility] n[facility] tartrate 25 7-05 tablet by ity of mg tablet 00:00: mouth [place] 00 daily. [facility] metoprolol Yes [id number] 25mg Take 1 [facility] nivers tartrate 25 7-05 tablet by ity of mg tablet 00:00: mouth [place] 00 daily. [facility] metoprolol Yes [id number] 25mg Take 1 [facility] tartrate 25 7-05 tablet by ity of mg tablet 00:00: mouth [place] 00 daily. [facility] metoprolol 2020- No [id number] 25mg Take 1 [facility] tartrate 25 11-30 03-20 tablet by it y of mg tablet 00:00: 00:00 mouth [place] 00 :00 daily. [facility] isosorbide 2020- No [id number] 30mg Take 1 [facility] mononitrate 11-30 tablet by it y of 30 mg 24 hr 00:00: 00:00 mouth [place] tablet 00 :00 daily. [facility] isosorbide 2020- No [id number] 30mg Take 1 [facility] mononitrate 11-30 tablet by it y of 30 mg 24 hr 00:00: 00:00 mouth [place] tablet 00 :00 daily. [facility] isosorbide 2020- No [id number] 30mg Take 1 [facility] mononitrate 11-30 tablet [...] mouth ity o f tablet 18:18: daily. [place] [address] Medical Branch aspirin 2019-0 Yes 81mg Take [...] mouth ity o f tablet 18:18: daily. [place] [address] Medical Branch aspirin 2018-0 Yes 81mg Take [...] mouth ity o f tablet 18:18: daily. [place] [address] Medical Branch aspirin 2018-0 Yes 81mg Take [...] mouth ity o f tablet 18:18: daily. [place] [address] Medical Branch aspirin 2018-0 Yes 81mg Take 81 mg [facility] ers (ASPIRIN 6-19 by mouth ity of LOW DOSE) 18:18: daily. [place] 81 mg EC 24 Medical tablet Branch phenazopyri 2018-0 Yes [id number] 200mg Take 1 [facility] dine 200 mg 6-02 tablet by ity of tablet 00:00: mouth 3 (three) Medical times Branch daily. phenazopyri 2019-0 Yes [id number] 200mg Take 1 [facility] dine 200 mg 6-02 tablet by ity of tablet 00:00: mouth 3 (three) Medical times Branch daily. phenazopyri 2018-0 Yes [id number] 200mg Take 1 [facility] dine 200 mg 6-02 tablet by ity of tablet 00:00: mouth 3 (three) Medical times Branch daily. phenazopyri 2018-0 Yes [id number] 200mg Take 1 [facility] dine 200 mg 6-02 tablet by ity of tablet 00:00: mouth 3 (three) Medical times Branch daily. phenazopyri 2018-0 Yes [id number] 200mg Take 1 [facility] dine 200 mg 6-02 tablet by ity of tablet 00:00: mouth 3 (three) Medical times Branch daily. phenazopyri 2018- Yes [id number] 200mg Take 1 [facility] dine 200 mg 6-02 tablet by ity of tablet 00:00: mouth (three) Medical times Branch daily. phenazopyri 2018- Yes [id number] 200mg Take 1 [facility] dine 200 mg 6-02 tablet by ity of tablet 00:00: mouth (three) Medical times Branch daily. phenazopyri 2018- Yes [id number] 200mg Take 1 [facility] dine 200 mg 6-02 tablet by ity of tablet 00:00: mouth (three) Medical times Branch daily. phenazopyri 2018-0 Yes [id number] 200mg Take 1 [facility] dine 200 mg 6-02 tablet by ity of tablet 00:00: mouth (three) Medical times Branch daily. phenazopyri 2018-0 Yes [id number] 200mg Take 1 [facility] dine 200 mg 6-02 tablet by ity of tablet 00:00: mouth (three) Medical times Branch daily. phenazopyri 2018-0 Yes [id number] 200mg Take 1 [facility] dine 200 mg 6-02 tablet by ity of tablet 00:00: mouth 3 (three) Medical times Branch daily. phenazopyri 2018-0 Yes [id number] 200mg Take 1 [facility] dine 200 mg 6-02 tablet by ity of tablet 00:00: mouth 3 (three) Medical times Branch daily. phenazopyri 2018-0 Yes [id number] 200mg Take 1 [facility] dine 200 mg 6-02 tablet by ity of tablet 00:00: mouth 3 (three) Medical times Branch daily. phenazopyri 2019-0 Yes [id number] 200mg Take 1 [facility] dine 200 mg 6-02 tablet by ity of tablet 00:00: mouth 3 (three) Medical times Branch daily. phenazopyri 2018-0 Yes [id number] 200mg Take 1 [facility] dine 200 mg 6-02 tablet by ity of tablet 00:00: mouth 3 (three) Medical times Branch daily. phenazopyri 2018-0 Yes [id number] 200mg Take 1 [facility] dine 200 mg 6-02 tablet by ity of tablet 00:00: mouth 3 (three) Medical times Branch daily. phenazopyri 2018-0 Yes [id number] 200mg Take 1 [facility] dine 200 mg 6-02 tablet by ity of tablet 00:00: mouth 3 (three) Medical times Branch daily. phenazopyri 2018-0 Yes [id number] 200mg Take 1 [facility] dine 200 mg 6-02 tablet by ity of tablet 00:00: mouth (three) Medical times Branch daily. phenazopyri 2018- Yes [id number] 200mg Take 1 [facility] dine 200 mg 6-02 tablet by ity of tablet 00:00: mouth (three) Medical times Branch daily. phenazopyri 2018-0 Yes [id number] 200mg Take 1 [facility] dine 200 mg 6-02 tablet by ity of tablet 00:00: mouth [place] (three) Medical times Branch daily. phenazopyri 2018-0 Yes [id number] 200mg Take 1 [facility] dine 200 mg 6-02 tablet by ity of tablet 00:00: mouth 3 [place] (three) Medical times Branch daily. phenazopyri 2018-0 Yes [id number] 200mg Take 1 [facility] dine 200 mg 6-02 tablet by ity of tablet 00:00: mouth 3 [place] (three) Medical times Branch daily. phenazopyri 2018-0 Yes [id number] 200mg Take 1 [facility] dine 200 mg 6-02 tablet by ity of tablet 00:00: mouth 3 [place] (three) Medical times Branch daily. phenazopyri 2018-0 Yes [id number] 200mg Take 1 [facility] dine 200 mg 6-02 tablet by ity of tablet 00:00: mouth 3 [place] (three) Medical times Branch daily. phenazopyri 2019-0 Yes [id number] 200mg Take 1 [facility] dine 200 mg 6-02 tablet by ity of tablet 00:00: mouth 3 [place] 00 (three) Medical times Branch daily. phenazopyri 2018-0 Yes [id number] 200mg Take 1 [facility] dine 200 mg 6-02 tablet by ity of tablet 00:00: mouth 3 [place] 00 (three) Medical times Branch daily. phenazopyri 2018-0 Yes [id number] 200mg Take 1 [facility] dine 200 mg 6-02 tablet by ity of tablet 00:00: mouth 3 [place] 00 (three) Medical times Branch daily. phenazopyri 2018-0 Yes [id number] 200mg Take 1 [facility] dine 200 mg 6-02 tablet by ity of tablet 00:00: mouth 3 [place] 00 (three) Medical times Branch daily. phenazopyri 2018-0 Yes [id number] 200mg Take 1 [facility] dine 200 mg 6-02 tablet by ity of tablet 00:00: mouth 3 [place] 00 (three) Medical times Branch daily. phenazopyri 2018-0 Yes [id number] 200mg Take 1 [facility] dine 200 mg 6-02 tablet by ity of tablet 00:00: mouth 3 [place] 00 (three) Medical times Branch daily. phenazopyri 2018-0 Yes [id number] 200mg Take 1 [facility] dine 200 mg 6-02 tablet by ity of tablet 00:00: mouth 3 [place] 00 (three) Medical times Branch daily. phenazopyri 2018-0 Yes [id number] 200mg Take 1 [facility] dine 200 mg 6-02 tablet by ity of tablet 00:00: mouth 3 [place] 00 (three) Medical times Branch daily. phenazopyri 2018-0 Yes [id number] 200mg Take 1 [facility] dine 200 mg 6-02 tablet by ity of tablet 00:00: mouth 3 [place] 00 (three) Medical times Branch daily. phenazopyri 2018-0 Yes [id number] 200mg Take 1 [facility] dine 200 mg 6-02 tablet by ity of tablet 00:00: mouth 3 [place] 00 (three) Medical times Branch daily. phenazopyri 2018- 2020- No [id number] 200mg Take 1 [facility] dine 200 mg 6-02 08-14 tablet by it y of tablet 00:00: 00:00 mouth 3 [place] 00 :00 (three) Medical times Branch daily. phenazopyri 2020- No [id number] 200mg Take 1 [facility] dine 200 mg 10-28 0814 tablet by it y of tablet 00:00: 00:00 mouth 3 [place] 00 :00 (three) Medical times Branch daily. miSOPROStol 2018- Yes [id number] Take one [facility] 200 mcg 5-10 tablet the ity of tablet 00:00: night [place] 00 before Medical procedure, Branch take one table the morning of procedure. miSOPROStol 2018- Yes [id number] Take one [facility] 200 mcg 5-10 tablet the ity of tablet 00:00: night [place] 00 before Medical procedure, Branch take one table the morning of procedure. miSOPROStol 2018- Yes [id number] Take one [facility] 200 mcg 5-10 tablet the ity of tablet 00:00: night [place] 00 before Medical procedure, Branch take one table the morning of procedure. miSOPROStol Yes [id number] Take one [facility] 200 mcg 5-10 tablet the ity of tablet 00:00: night [place] 00 before Medical procedure, Branch take one table the morning of procedure. miSOPROStol 2018- Yes [id number] Take one [facility] 200 mcg 5-10 tablet the ity of tablet 00:00: night [place] 00 before Medical procedure, Branch take one table the morning of procedure. miSOPROStol 2018- Yes [id number] Take one [facility] 200 mcg 5-10 tablet the ity of tablet 00:00: night [place] 00 before Medical procedure, Branch take one table the morning of procedure. miSOPROStol 2019- No [id number] Take one [facility] 200 mcg 5-10 09-09 tablet the ity o f tablet 00:00: 00:00 night [place] 00 :00 before Medical procedure, Branch take one table the morning of procedure. miSOPROStol 2019- No [id number] Take one [facility] 200 mcg 5-10 09-09 tablet the ity o f tablet 00:00: 00:00 night [place] 00 :00 before Medical procedure, Branch take one table the morning of procedure. escitalopra 2018- Yes [id number] 10mg Take 1 [facility] m oxalate 4-30 tablet by ity o f (LEXAPRO) 00:00: mouth [place] 10 mg 00 daily. Medical tablet Branch escitalopra 2018- Yes [id number] 10mg Take 1 [facility] m oxalate 4-30 tablet by ity o f (LEXAPRO) 00:00: mouth [place] 10 mg 00 daily. Medical tablet Branch escitalopra Yes [id number] 10mg Take 1 [facility] m oxalate 4-30 tablet by ity o f (LEXAPRO) 00:00: mouth [place] 10 mg 00 daily. Medical tablet Branch escitalopra Yes [id number] 10mg Take 1 [facility] m oxalate 4-30 tablet by ity o f (LEXAPRO) 00:00: mouth [place] 10 mg 00 daily. Medical tablet Branch escitalopra Yes [id number] 10mg Take 1 [facility] m oxalate 4-30 tablet by ity o f (LEXAPRO) 00:00: mouth [place] 10 mg 00 daily. Medical tablet Branch escitalopra Yes [id number] 10mg Take 1 [facility] m oxalate 4-30 tablet by ity o f (LEXAPRO) 00:00: mouth [place] 10 mg 00 daily. Medical tablet Branch escitalopra 2019- No [id number] 10mg Take 1 [facility] m oxalate 4-30 09-09 tablet by ity of (LEXAPRO) 00:00: 00:00 mouth [place] 10 mg 00 :00 daily. Medical tablet Branch escitalopra 2019- No [id number] 10mg Take 1 [facility] m oxalate 4-30 09-09 tablet by ity of (LEXAPRO) 00:00: 00:00 mouth [place] 10 mg 00 :00 daily. Medical tablet Branch Nitrofurant 2018- Yes [id number] 100mg Take 1 Univers oin&Nit. 4-25 capsule by ity o f Macrocryst 00:00: mouth [place] (MACROBID) 00 daily. Medical 100 mg Branch capsule Nitrofurant 2018- Yes [id number] 100mg Take 1 Univers oin&Nit. 4-25 capsule by ity o f Macrocryst 00:00: mouth [place] (MACROBID) 00 daily. Medical 100 mg Branch capsule Nitrofurant 2018- Yes [id number] 100mg Take 1 Univers oin&Nit. 4-25 capsule by ity o f Macrocryst 00:00: mouth [place] (MACROBID) 00 daily. Medical 100 mg Branch capsule Nitrofurant 2018- Yes [id number] 100mg Take 1 Univers oin&Nit. 4-25 capsule by ity o f Macrocryst 00:00: mouth [place] (MACROBID) 00 daily. Medical 100 mg Branch capsule Nitrofurant 2019-0 Yes 100mg Take 1 Univers oin&Nit. 4-25 capsule by ity o f Macrocryst 00:00: mouth [place] (MACROBID) 00 daily. Medical 100 mg Branch capsule Nitrofurant 2019-0 Yes [id number] 100mg Take 1 Univers oin&Nit. 4-25 capsule [...] 100 mg Branch capsule Nitrofurant 2019-0 Yes [id number] 100mg Take 1 Univers oin&Nit. 4-25 capsule by ity o f Macrocryst 00:00: mouth [place] (MACROBID) 00 daily. Medical 100 mg Branch capsule Nitrofurant 2019-0 Yes [id number] 100mg Take 1 Univers oin&Nit. 4-25 capsule by ity o f Macrocryst 00:00: mouth [place] (MACROBID) 00 daily. Medical 100 mg Branch capsule Nitrofurant 2019-0 Yes [id number] 100mg Take 1 Univers oin&Nit. 4-25 capsule by ity o f Macrocryst 00:00: mouth [place] (MACROBID) 00 daily. Medical 100 mg Branch capsule Nitrofurant 2018-0 Yes [id number] 100mg Take 1 Univers oin&Nit. 4-25 capsule by ity o f Macrocryst 00:00: mouth [place] (MACROBID) 00 daily. Medical 100 mg Branch capsule Nitrofurant 2019-0 Yes [id number] 100mg Take 1 Univers oin&Nit. 4-25 capsule by ity o f Macrocryst 00:00: mouth [place] (MACROBID) 00 daily. Medical 100 mg Branch capsule Nitrofurant 2018-0 Yes [id number] 100mg Take 1 Univers oin&Nit. 4-25 capsule by ity o f Macrocryst 00:00: mouth [place] (MACROBID) 00 daily. Medical 100 mg Branch capsule Nitrofurant 2019-0 Yes [id number] 100mg Take 1 Univers oin&Nit. 4-25 capsule by ity o f Macrocryst 00:00: mouth [place] (MACROBID) 00 daily. Medical 100 mg Branch capsule Nitrofurant 2019-0 Yes [id number] 100mg Take 1 Univers oin&Nit. 4-25 capsule by ity o f Macrocryst 00:00: mouth [place] (MACROBID) 00 daily. Medical 100 mg Branch capsule Nitrofurant 2019-0 Yes [id number] 100mg Take 1 Univers oin&Nit. 4-25 capsule by ity o f Macrocryst 00:00: mouth [place] (MACROBID) 00 daily. Medical 100 mg Branch capsule Nitrofurant 2019-0 Yes [id number] 100mg Take 1 Univers oin&Nit. 4-25 capsule by ity o f Macrocryst 00:00: mouth [place] (MACROBID) 00 daily. Medical 100 mg Branch capsule Nitrofurant 2019-0 Yes [id number] 100mg Take 1 Univers oin&Nit. 4-25 capsule by ity o f Macrocryst 00:00: mouth [place] (MACROBID) 00 daily. Medical 100 mg Branch capsule Nitrofurant 2019-0 Yes [id number] 100mg Take 1 Univers oin&Nit. 4-25 capsule [...] 100 mg Branch capsule Nitrofurant 2018-0 Yes [id number] 100mg Take 1 Univers oin&Nit. 4-25 capsule [...] 100 mg Branch capsule Nitrofurant 2019-0 Yes [id number] 100mg Take 1 Univers oin&Nit. 4-25 capsule by ity o f Macrocryst 00:00: mouth [place] (MACROBID) 00 daily. Medical 100 mg Branch capsule Nitrofurant 2019-0 Yes [id number] 100mg Take 1 Univers oin&Nit. 4-25 capsule by ity o f Macrocryst 00:00: mouth [place] (MACROBID) 00 daily. Medical 100 mg Branch capsule Nitrofurant 2019-0 Yes [id number] 100mg Take 1 Univers oin&Nit. 4-25 capsule by ity o f Macrocryst 00:00: mouth [place] (MACROBID) 00 daily. Medical 100 mg Branch capsule Nitrofurant 2019-0 2020- No [id number] 100mg Take 1 Univers oin&Nit. 4-25 08-14 capsule by ity of Macrocryst 00:00: 00:00 mouth [place] (MACROBID) 00 :00 daily. Medical 100 mg Branch capsule Nitrofurant 2019-0 2020- No [id number] 100mg Take 1 Univers oin&Nit. 4-25 08-14 [...] of tablet 00:00: [place] 00 Medical Branch escitalopra 2019-0 Yes Univer s m oxalate 4-06 ity of 20 mg 00:00: [place] tablet 00 Medical Branch levETIRAcet 2019-0 Yes Univer s am 500 mg 4-06 ity of tablet 00:00: [place] 00 Medical Branch levETIRAcet 2019-0 Yes Univer s am 500 mg 4-06 ity of tablet 00:00: [place] 00 [facility] Branch levETIRAcet 2019-0 Yes Univer s am 500 mg 4-06 ity of tablet 00:00: [place] 00 Medical Branch levETIRAcet 2019-0 Yes Univer s am 500 mg 4-06 ity of tablet 00:00: [place] 00 [facility] Branch levETIRAcet 2019-0 Yes Univer s am 500 mg 4-06 ity of tablet 00:00: [place] 00 [facility] Branch levETIRAcet 2019-0 Yes Univer s am 500 mg 4-06 ity of tablet 00:00: [place] 00 [facility] Branch levETIRAcet 2019-0 Yes Univer s [...] 4-06 ity of tablet 00:00: [place] 00 [facility] levETIRAcet 2019-0 2020- No Unive rs am 500 mg 4-06 08-14 ity of tablet 00:00: 00:00 [place] 00 :00 Medical Branch levETIRAcet 2019-0 2020- No Unive rs am 500 mg 09-01 ity of tablet 00:00: 00:00 [place] 00 :00 Medical Branch gabapentin 2019-0 Yes [id number] 800mg Take 1 Univers 800 mg 4-05 tablet by ity of tablet 00:00: mouth 3 (three) Medical times Branch daily. metFORMIN 2019-0 Yes 1000mg Take 2 Univ ers 500 mg 4-05 tablets by ity of tablet 00:00: mouth (two) Medical times Branch daily with meals. You can do two pills in the morning and one in the evening. gabapentin 2019-0 Yes [id number] 800mg Take 1 Univers 800 mg 4-05 tablet by ity of tablet 00:00: mouth (three) Medical times Branch daily. metFORMIN 2019-0 Yes 1000mg Take 2 Univ ers 500 mg 4-05 tablets by ity of tablet 00:00: mouth (two) Medical times Branch daily with meals. You can do two pills in the morning and one in the evening. gabapentin 2019-0 Yes [id number] 800mg Take 1 Univers 800 mg 4-05 tablet by ity of tablet 00:00: mouth (three) Medical times Branch daily. metFORMIN 2019-0 Yes 1000mg Take 2 Univ ers 500 mg 4-05 tablets by ity of tablet 00:00: mouth (two) Medical times Branch daily with meals. You can do two pills in the morning and one in the evening. gabapentin 2019-0 Yes [id number] 800mg Take 1 Univers 800 mg 4-05 [...] one in the evening. gabapentin 2019-0 Yes [id number] 800mg Take 1 Univers 800 mg 4-05 [...] injection breakfast and dinner. gabapentin 2019-0 Yes [id number] 800mg Take 1 Univers 800 mg 4-05 [...] injection breakfast and dinner. gabapentin 2019-0 Yes [id number] 800mg Take 1 Univers 800 mg 4-05 [...] injection breakfast and dinner. gabapentin 2019-0 Yes [id number] 800mg Take 1 Univers 800 mg 4-05 [...] injection breakfast and dinner. gabapentin 2019-0 Yes [id number] 800mg Take 1 Univers 800 mg 4-05 [...] injection breakfast and dinner. gabapentin 2019-0 Yes [id number] 800mg Take 1 Univers 800 mg 4-05 [...] injection breakfast and dinner. gabapentin 2019-0 Yes [id number] 800mg Take 1 Univers 800 mg 4-05 [...] injection breakfast and dinner. gabapentin 2019-0 Yes [id number] 800mg Take 1 Univers 800 mg 4-05 [...] injection breakfast and dinner. gabapentin 2019-0 Yes [id number] 800mg Take 1 Univers 800 mg 4-05 tablet by ity of tablet 00:00: mouth (three) Medical times Branch daily. metFORMIN 2019-0 Yes 1000mg Take 2 Univ ers 500 mg 4-05 tablets by ity of tablet 00:00: mouth (two) Medical times Branch daily with meals. You can do two pills in the morning and one in the evening. gabapentin 2019-0 Yes [id number] 800mg Take 1 Univers 800 mg 4-05 tablet by ity of tablet 00:00: mouth (three) Medical times Branch daily. metFORMIN 2019-0 Yes 1000mg Take 2 Univ ers 500 mg 4-05 tablets by ity of tablet 00:00: mouth (two) Medical times Branch daily with meals. You can do two pills in the morning and one in the evening. gabapentin 2019-0 Yes [id number] 800mg Take 1 Univers 800 mg 4-05 tablet by ity of tablet 00:00: mouth (three) Medical times Branch daily. metFORMIN 2019-0 Yes 1000mg Take 2 Univ ers 500 mg 4-05 tablets by ity of tablet 00:00: mouth (two) Medical times Branch daily with meals. You can do two pills in the morning and one in the evening. gabapentin 2019-0 Yes [id number] 800mg Take 1 Univers 800 mg 4-05 tablet by ity of tablet 00:00: mouth 3 (three) Medical times Branch daily. metFORMIN 2019-0 Yes 1000mg Take 2 Univ ers 500 mg 4-05 tablets by ity of tablet 00:00: mouth (two) Medical times Branch daily with meals. You can do two pills in the morning and one in the evening. gabapentin 2019-0 Yes [id number] 800mg Take 1 Univers 800 mg 4-05 tablet by ity of tablet 00:00: mouth (three) Medical times Branch daily. metFORMIN 2019-0 Yes 1000mg Take 2 Univ ers 500 mg 4-05 tablets by ity of tablet 00:00: mouth (two) Medical times Branch daily with meals. You can do two pills in the morning and one in the evening. gabapentin 2019-0 Yes [id number] 800mg Take 1 Univers 800 mg 4-05 tablet by ity of tablet 00:00: mouth (three) Medical times Branch daily. metFORMIN 2019-0 Yes 1000mg Take 2 Univ ers 500 mg 4-05 tablets by ity of tablet 00:00: mouth (two) Medical times Branch daily with meals. You can do two pills in the morning and one in the evening. gabapentin 2019-0 Yes [id number] 800mg Take 1 Univers 800 mg 4-05 tablet by ity of tablet 00:00: mouth (three) Medical times Branch daily. metFORMIN 2019-0 Yes 1000mg Take 2 Univ ers 500 mg 4-05 tablets by ity of tablet 00:00: mouth (two) Medical times Branch daily with meals. You can do two pills in the morning and one in the evening. gabapentin 2019-0 Yes [id number] 800mg Take 1 Univers 800 mg 4-05 tablet by ity of tablet 00:00: mouth (three) Medical times Branch daily. metFORMIN 2019-0 Yes 1000mg Take 2 Univ ers 500 mg 4-05 tablets by ity of tablet 00:00: mouth (two) Medical times Branch daily with meals. You can do two pills in the morning and one in the evening. gabapentin 2019-0 Yes [id number] 800mg Take 1 Univers 800 mg 4-05 [...] one in the evening. gabapentin 2019-0 Yes [id number] 800mg Take 1 Univers 800 mg 4-05 [...] in the evening. gabapentin 2019- 2020- No [id number] 800mg Take 1 Univers 800 mg 4-05 05-05 tablet by ity of tablet 00:00: 00:00 mouth 3 [place] 00 :00 (three) Medical times Branch daily. gabapentin 2019- 2020- No [id number] 800mg Take 1 Univers 800 mg 4-05 05-05 tablet by ity of tablet 00:00: 00:00 mouth 3 [place] 00 :00 (three) Medical times Branch daily. gabapentin 2018- 2020- No [id number] 800mg Take 1 Univers 800 mg 4-05 [...] tablet times Branch daily. Insulin 2018-0 Yes [id number] Use as Uni vers Syringe-Nee 3-30 directed ity of dle U-100 00:00: [place] (INSULIN 00 Medical SYRINGE) 1 Branch mL 30 gauge x 5/16 Syrg Insulin 2018-0 Yes [id number] Use as Uni vers Syringe-Nee 3-30 directed ity of dle U-100 00:00: [place] (INSULIN 00 Medical SYRINGE) 1 Branch mL 30 gauge x 5/16 Syrg Insulin 2018-0 Yes [id number] Use as Uni vers Syringe-Nee 3-30 directed ity of dle U-100 00:00: [place] (INSULIN 00 Medical SYRINGE) 1 Branch mL 30 gauge x 5/16 Syrg Insulin 2018-0 Yes [id number] Use as Uni vers Syringe-Nee 3-30 directed ity of dle U-100 00:00: [place] (INSULIN 00 Medical SYRINGE) 1 Branch mL 30 gauge x 5/16 Syrg Insulin 2018-0 Yes [id number] Use as Uni vers Syringe-Nee 3-30 directed ity of dle U-100 00:00: [place] (INSULIN 00 Medical SYRINGE) 1 Branch mL 30 gauge x 5/16 Syrg Insulin 2017-0 Yes [id number] Use as Uni vers Syringe-Nee 3-30 directed ity of dle U-100 00:00: [place] (INSULIN 00 Medical SYRINGE) 1 Branch mL 30 gauge x 5/16 Syrg Insulin 2017-0 Yes [id number] Use as Uni vers Syringe-Nee 3-30 directed ity of dle U-100 00:00: [place] (INSULIN 00 Medical SYRINGE) 1 Branch mL 30 gauge x 5/16 Syrg Insulin 2017-0 Yes [id number] Use as Uni vers Syringe-Nee 3-30 directed ity of dle U-100 00:00: [place] (INSULIN 00 Medical SYRINGE) 1 Branch mL 30 gauge x 5/16 Syrg Insulin 2017-0 Yes [id number] Use as Uni vers Syringe-Nee 3-30 directed ity of dle U-100 00:00: [place] (INSULIN 00 Medical SYRINGE) 1 Branch mL 30 gauge x 5/16 Syrg Insulin 2017-0 Yes [id number] Use as Uni vers Syringe-Nee 3-30 directed ity of dle U-100 00:00: [place] (INSULIN 00 Medical SYRINGE) 1 Branch mL 30 gauge x 5/16 Syrg Insulin 2018-0 Yes [id number] Use as Uni vers Syringe-Nee 3-30 directed ity of dle U-100 00:00: [place] (INSULIN 00 Medical SYRINGE) 1 Branch mL 30 gauge x 5/16 Syrg Insulin 2018-0 Yes [id number] Use as Uni vers Syringe-Nee 3-30 directed ity of dle U-100 00:00: [place] (INSULIN 00 Medical SYRINGE) 1 Branch mL 30 gauge x 5/16 Syrg Insulin 2018-0 Yes [id number] Use as Uni vers Syringe-Nee 3-30 directed ity of dle U-100 00:00: [place] (INSULIN 00 Medical SYRINGE) 1 Branch mL 30 gauge x 5/16 Syrg Insulin 2018-0 Yes [id number] Use as Uni vers Syringe-Nee 3-30 directed ity of dle U-100 00:00: [place] (INSULIN 00 Medical SYRINGE) 1 Branch mL 30 gauge x 5/16 Syrg Insulin 2018-0 Yes [id number] Use as Uni vers Syringe-Nee 3-30 directed ity of dle U-100 00:00: [place] (INSULIN 00 Medical SYRINGE) 1 Branch mL 30 gauge x 5/16 Syrg Insulin 2018-0 Yes [id number] Use as Uni vers Syringe-Nee 3-30 directed ity of dle U-100 00:00: [place] (INSULIN 00 Medical SYRINGE) 1 Branch mL 30 gauge x 5/16 Syrg Insulin 2017-0 Yes [id number] Use as Uni vers Syringe-Nee 3-30 directed ity of dle U-100 00:00: [place] (INSULIN 00 Medical SYRINGE) 1 Branch mL 30 gauge x 5/16 Syrg Insulin 2017-0 Yes [id number] Use as Uni vers Syringe-Nee 3-30 directed ity of dle U-100 00:00: [place] (INSULIN 00 Medical SYRINGE) 1 Branch mL 30 gauge x 5/16 Syrg Insulin 2018-0 Yes [id number] Use as Uni vers Syringe-Nee 3-30 directed ity of dle U-100 00:00: [place] (INSULIN 00 Medical SYRINGE) 1 Branch mL 30 gauge x 5/16 Syrg Insulin 2018-0 Yes [id number] Use as Uni vers Syringe-Nee 3-30 directed ity of dle U-100 00:00: [place] (INSULIN 00 Medical SYRINGE) 1 Branch mL 30 gauge x 5/16 Syrg Insulin 2018-0 Yes [id number] Use as Uni vers Syringe-Nee 3-30 directed ity of dle U-100 00:00: [place] (INSULIN 00 Medical SYRINGE) 1 Branch mL 30 gauge x 5/16 Syrg Insulin 2018-0 Yes [id number] Use as Uni vers Syringe-Nee 3-30 directed ity of dle U-100 00:00: [place] (INSULIN 00 Medical SYRINGE) 1 Branch mL 30 gauge x 5/16 Syrg Insulin 2018-0 Yes [id number] Use as Uni vers Syringe-Nee 3-30 directed ity of dle U-100 00:00: [place] (INSULIN 00 Medical SYRINGE) 1 Branch mL 30 gauge x 5/16 Syrg Insulin 2018-0 Yes [id number] Use as Uni vers Syringe-Nee 3-30 directed ity of dle U-100 00:00: [place] (INSULIN 00 Medical SYRINGE) 1 Branch mL 30 gauge x 5/16 Syrg Insulin 2018-0 Yes [id number] Use as Uni vers Syringe-Nee 3-30 directed ity of dle U-100 00:00: [place] (INSULIN 00 Medical SYRINGE) 1 Branch mL 30 gauge x 5/16 Syrg Insulin 2018-0 Yes [id number] Use as Uni vers Syringe-Nee 3-30 directed ity of dle U-100 00:00: [place] (INSULIN 00 Medical SYRINGE) 1 Branch mL 30 gauge x 5/16 Syrg Insulin 2017-0 Yes [id number] Use as Uni vers Syringe-Nee 3-30 directed ity of dle U-100 00:00: [place] (INSULIN 00 Medical SYRINGE) 1 Branch mL 30 gauge x 5/16 Syrg Insulin 2018-0 Yes [id number] Use as Uni vers Syringe-Nee 3-30 directed ity of dle U-100 00:00: [place] (INSULIN 00 Medical SYRINGE) 1 Branch mL 30 gauge x 5/16 Syrg Insulin 2018-0 Yes [id number] Use as Uni vers Syringe-Nee 3-30 directed ity of dle U-100 00:00: [place] (INSULIN 00 Medical SYRINGE) 1 Branch mL 30 gauge x 5/16 Syrg Insulin 2018-0 Yes [id number] Use as Uni vers Syringe-Nee 3-30 directed ity of dle U-100 00:00: [place] (INSULIN 00 Medical SYRINGE) 1 Branch mL 30 gauge x 5/16 Syrg Insulin 2018-0 Yes [id number] Use as Uni vers Syringe-Nee 3-30 directed ity of dle U-100 00:00: [place] (INSULIN 00 Medical SYRINGE) 1 Branch mL 30 gauge x 5/16 Syrg Insulin 2018-0 Yes [id number] Use as Uni vers Syringe-Nee 3-30 directed ity of dle U-100 00:00: [place] (INSULIN 00 Medical SYRINGE) 1 Branch mL 30 gauge x 5/16 Syrg Insulin 2018-0 Yes [id number] Use as Uni vers Syringe-Nee 3-30 directed ity of dle U-100 00:00: (INSULIN 00 Medical SYRINGE) 1 Branch mL 30 gauge x 5/16 Syrg Insulin Yes [id number] Use as Uni vers Syringe-Nee 3-30 directed ity of dle U-100 00:00: (INSULIN 00 Medical SYRINGE) 1 Branch mL 30 gauge x 5/16 Syrg Insulin 2020- No [id number] Use as Un [place] Syringe-Nee 330 01-09 directed ity of dle U-100 00:00: 00:00 (INSULIN 00 :00 Medical SYRINGE) 1 Branch mL 30 gauge x 5/16 Syrg Insulin 2020- No [id number] Use as Un cali Syringe-Nee 330 01-09 directed ity of dle U-100 00:00: 00:00 [place] (INSULIN 00 :00 Medical SYRINGE) 1 Branch mL 30 gauge x 5/16 Syrg Atorvastati Atorvastati Yes [place] [address] [facility] Calcium n Calcium [facility] Lexapro Lexapro Yes [place] [address] [facility] Metoprolol Metoprolol Yes [place] [address] [facility] [address] Tartrate Tartrate Horan with food [facility] Ranexa Ranexa Yes [place] 1 [facility] Insulin Insulin Yes [place]ada [address] [facility] [address] Aspart Prot Aspart Prot Horan BID [facility] Aspart & [facility]art [facility] Aspirin Aspirin Yes [place]ada [address] [facility] Gabapentin Gabapentin Yes [place] [address] [facility] Furosemide Furosemide Yes [place]ada [address] [facility] Duloxetine Duloxetine Yes Dada [address] [facility] [address] HCl HCl [facility] Xanax Xanax Yes [place]ada [address] [facility] Clopidogrel Clopidogrel Yes Dada [address] [facility] [address] Bisulfate Bisulfate [facility] Metformin Metformin Yes Dada [...] [facility] [place] Yes [place]ada [address] [facility] [address] Horan [...] Completed Unive rsity of PFIZER VACCINE 00:00:00 [facility] SARS-COV-2 COVID-19 2021-01-17 Completed Unive rsity of PFIZER VACCINE 00:00:00 [facility] SARS-COV-2 COVID-19 2021-01-17 Completed Unive rsity of PFIZER VACCINE 00:00:00 [facility] SARS-COV-2 COVID-19 2021-01-17 Completed Unive rsity of PFIZER VACCINE 00:00:00 [facility] SARS-COV-2 COVID-19 2021-01-17 Completed Unive rsity of PFIZER VACCINE 00:00:00 [facility] SARS-COV-2 COVID-19 2021-01-17 Completed Unive rsity of PFIZER VACCINE 00:00:00 [facility] SARS-COV-2 COVID-19 2021-01-17 Completed Unive rsity of PFIZER VACCINE 00:00:00 [facility] Vital Signs Vital Name Observation Time Observation Value Comments Source Systolic blood 2021-02-12 19:25:00 123 mm[Hg] Univer sity of pressure [place] [facility] Diastolic blood 2021-02-12 19:25:00 80 mm[Hg] Unive rsity of pressure [facility] Heart rate 2021-02-12 19:25:00 87 /min [facility] of [place] [facility] [place] Body temperature 2021-02-12 19:25:00 36.83 [place] Univ ersity of [facility] Branch Respiratory rate 2021-02-12 19:25:00 16 /min Univ ersity of [facility] Body height 2021-02-12 19:25:00 162.6 cm Universi ty of [place] [facility] [place] Body weight 2021-02-12 19:25:00 64.864 kg Universi ty of [place] [facility] BMI 2021-02-12 19:25:00 24.55 kg/m2 Universi ty of [facility] Oxygen saturation in 2021-02-12 19:25:00 99 /min University of Arterial blood by [facility] Pulse oximetry Branch Systolic blood 2021-02-12 18:15:00 108 mm[Hg] Univer sity of pressure [facility] Branch Diastolic blood 2021-02-12 18:15:00 73 mm[Hg] Unive rsity of pressure [facility] Branch Heart rate 2021-02-12 18:15:00 59 /min Universi ty of [place] [facility] Respiratory rate 2021-02-12 18:15:00 18 /min Univ ersity of [facility] Body height 2021-02-12 18:15:00 162.6 [...] 2021-01-17 17:22:00 85 /min Universi ty of [facility] Branch Body temperature 2021-01-17 17:22:00 36.06 [place]ero Univ ersity of [place] [facility] Respiratory rate 2021-01-17 17:22:00 16 /min Univ ersity of [place] [facility] Oxygen saturation in 2021-01-17 17:22:00 95 /min University of Arterial blood by [facility] blanquita Pulse oximetry Branch Body height 2021-01-15 21:03:00 162.6 cm Universi ty of [place] [facility] Body weight 2021-01-15 21:03:00 62.46 kg Universi ty of [place] [facility] BMI 2021-01-15 21:03:00 23.64 kg/m2 Universi ty of [place] [facility] Systolic blood 2021-01-15 19:31:00 109 mm[Hg] Univer sity of pressure [place] [facility] Diastolic blood 2021-01-15 19:31:00 71 mm[Hg] Unive rsity of pressure [place] [facility] Heart rate 2021-01-15 19:31:00 88 /min Universi ty of [place] [facility] Respiratory rate 2021-01-15 19:31:00 19 /min Univ ersity of [place] [facility] Body height 2021-01-15 19:31:00 162.6 cm Universi ty of [place] [facility] Body weight 2021-01-15 19:31:00 62.143 kg [facility]i ty [facility] [place] [facility] BMI 2021-01-15 19:31:00 23.52 kg/m2 Universi ty of [place] [facility] Oxygen saturation in 2021-01-15 19:31:00 93 /min University of Arterial blood by [facility] Pulse oximetry Branch Systolic blood 2021-01-01 16:37:00 [...] 100 /min University of Arterial blood by [facility] Pulse oximetry Branch Systolic blood 2020-12-01 15:53:00 123 mm[Hg] Univer sity of pressure [place] [facility] Diastolic blood 2020-12-01 15:53:00 69 mm[Hg] Unive rsity of pressure [place] [facility] Heart rate 2020-12-01 15:53:00 90 /min Universi ty of [place] [facility] Body temperature 2020-12-01 15:53:00 36.22 [place] Univ ersity of [place] [facility] Respiratory rate 2020-12-01 15:53:00 16 /min Univ ersity of [place] [facility] Oxygen saturation in 2020-12-01 15:53:00 97 /min University of Arterial blood by [facility] Pulse oximetry Branch Body height 2020-11-30 14:35:00 162.6 cm Universi ty of [place] [facility] Body weight 2020-11-30 14:35:00 64.411 [...] 94 /min University of Arterial blood by [facility] Pulse oximetry Branch Systolic blood 2020-10-07 19:37:00 118 mm[Hg] Univer sity of pressure [place] [facility] Diastolic blood 2020-10-07 19:37:00 80 mm[Hg] Unive rsity of pressure [place] [facility] Heart rate 2020-10-07 19:37:00 95 /min Universi ty of [place] [facility] Body weight 2020-10-07 19:37:00 59.875 kg Universi ty of [place] [facility] BMI 2020-10-07 19:37:00 22.65 kg/m2 Universi ty of [facility] Oxygen saturation in 2020-10-07 19:37:00 97 /min University Arterial blood by [facility] Pulse oximetry Branch Systolic blood 2020-10-01 20:20:00 [...] ty of [place] [facility] Systolic blood 2020-09-07 20:47:00 104 mm[Hg] Univer sity of pressure [place] [facility] Diastolic blood 2020-09-07 20:47:00 62 mm[Hg] Unive rsity of pressure [place] [facility] Heart rate 2020-09-07 20:47:00 88 /min Universi ty [facility] [place] [facility] Body temperature 2020-09-07 20:47:00 36.17 [place] Univ ersity of [place] [facility] Respiratory rate 2020-09-07 20:47:00 18 /min Univ ersity of [facility] Oxygen saturation in 2020-09-07 20:47:00 99 /min University of Arterial blood by [facility] Pulse oximetry Branch Body height 2020-09-05 07:40:00 [...] 2019-10-11 20:16:00 36.89 [place] Univ ersity of [facility] Respiratory rate 2019-10-11 20:16:00 18 /min Univ ersity of [facility] Body height 2019-10-11 20:16:00 162.6 cm Universi ty of [place] [facility] Body weight 2019-10-11 20:16:00 80.74 kg Universi ty of [place] [facility] BMI 2019-10-11 20:16:00 30.55 kg/m2 [facility] Branch Heart rate 2019-08-16 16:31:00 90 /min [facility] ty [facility] Branch Respiratory rate 2019-08-16 16:31:00 18 /min Univ ersity of [facility] Oxygen saturation in 2019-08-16 16:31:00 97 /min University of Arterial blood by [facility] Pulse oximetry Branch Systolic blood 2019-08-16 16:17:00 110 mm[Hg] Univer sity of pressure [facility] Branch Diastolic blood 2019-08-16 16:17:00 58 mm[Hg] Unive rsity of pressure [facility] Branch Body temperature 2019-08-16 16:17:00 36 Lucero Univ ersity of [facility] Body weight 2019-08-16 08:21:00 79.833 kg [facility] BMI 2019-08-16 08:21:00 30.21 kg/m2 [facility] Body height 2019-08-15 13:32:00 162.6 cm [facility] Systolic blood 2019-08-05 16:11:00 145 mm[Hg] Univer sity of pressure [facility] Branch Diastolic blood 2019-08-05 16:11:00 88 mm[Hg] Unive rsity of pressure [facility] Branch Heart rate 2019-08-05 16:11:00 92 /min [facility] Respiratory rate 2019-08-05 16:11:00 19 /min Univ ers[facility] of [facility] Body height 2019-08-05 16:11:00 162.6 cm [facility] Body weight 2019-08-05 16:11:00 80.513 kg Universi ty [facility] BMI 2019-08-05 16:11:00 30.47 kg/m2 Universi ty [facility] Oxygen saturation in 2019-08-05 16:11:00 99 /min University of Arterial blood by [facility] Pulse oximetry Branch Systolic blood 2019-02-04 15:08:00 117 mm[Hg] Univer sity of pressure [facility] Diastolic blood 2019-02-04 15:08:00 83 mm[Hg] Unive rsity of pressure [facility] Heart rate 2019-02-04 15:08:00 80 /min [facility] Respiratory rate 2019-02-04 15:08:00 20 /min [facility] Body height 2019-02-04 15:08:00 162.6 cm Universi [facility] Oxygen saturation in 2019-02-04 15:08:00 99 /min University of Arterial blood by [facility] Pulse oximetry Branch Systolic blood 2019-01-04 19:51:00 124 mm[Hg] Univer sity of pressure [facility] Diastolic blood 2019-01-04 19:51:00 83 mm[Hg] Unive rsity of pressure [facility] Heart rate 2019-01-04 19:51:00 79 /min Universi ty [facility] Respiratory rate 2019-01-04 19:51:00 16 /min [facility] Body height 2019-01-04 19:51:00 162.6 cm [facility] Body weight 2019-01-04 19:51:00 76.204 kg [facility] BMI 2019-01-04 19:51:00 28.84 kg/m2 [facility] Procedures Procedure Date / Time Performing Clinician Source Performed EXTERNAL PROVIDER RECORDS 2021-05-13 06:01:00 Doctor Unassigned, [facility] [place] [facility] POCT GLUCOSE (AUTOMATED) 2021-02-12 21:28:00 Fabby Nieves [facility] BASIC METABOLIC PANEL (NA, 2021-02-12 20:36:00 Fabby Nieves [facility] K, CL, CO2, GLUCOSE, BUN, Medica l Branch CREATININE, CA) CBC WITH DIFF 2021-02-12 20:36:00 Fabby Nieves [facility] URINALYSIS 2021-02-12 20:36:00 Fabby Nieves [facility] POCT GLUCOSE (AUTOMATED) 2021-02-12 19:33:00 Doctor Unassigned, [facility] [place] [facility] CONSENT/REFUSAL FOR 2021-02-12 19:10:35 Doctor Unassigned, [facility] DIAGNOSIS AND TREATMENT [place] [facility] POCT GLUCOSE (AUTOMATED) 2021-01-17 17:24:00 Celso Duran [facility] POCT GLUCOSE (AUTOMATED) 2021-01-17 12:38:00 Celso Duran [facility] BASIC METABOLIC PANEL (NA, 2021-01-17 09:06:00 Priyanka Haney [facility] K, CL, CO2, GLUCOSE, BUN, Medica l Branch CREATININE, CA) CBC WITH DIFF 2021-01-17 09:06:00 Priyanka Haney [facility] POCT GLUCOSE (AUTOMATED) 2021-01-16 21:11:00 Celso Duran [facility] POCT GLUCOSE (AUTOMATED) 2021-01-16 16:41:00 Celso Duran [facility] POCT GLUCOSE (AUTOMATED) 2021-01-16 12:48:00 Celso Duran [facility] CBC WITH DIFF 2021-01-16 08:25:00 Priyanka Haney [facility] POCT GLUCOSE (AUTOMATED) 2021-01-16 08:24:00 Celso Duran [facility] MAGNESIUM 2021-01-16 08:17:00 Priyanka Haney [facility] BASIC METABOLIC PANEL (NA, 2021-01-16 08:17:00 Priyanka Haney [facility] K, CL, CO2, GLUCOSE, BUN, Medica l Branch CREATININE, CA) LIPID PANEL ([id number])(TOTAL 2021-01-16 08:17:00 Priyanka Haney [facility] CHOLESTEROL, Medical Branch TRIGLYCERIDES, HDL) LOW-DENSITY LIPOPROTEIN, 2021-01-16 08:17:00 Priyanka Haney [facility] DIRECT [facility] POCT GLUCOSE (AUTOMATED) 2021-01-16 03:51:00 Celso Duran [facility] URINE CULTURE 2021-01-16 01:56:00 Priyanka Haney [facility] POCT GLUCOSE (AUTOMATED) 2021-01-16 01:06:00 Celso Duran [facility] URINALYSIS 2021-01-15 23:47:00 Priyanka Haney [facility] BLOOD CULTURE SCREEN 2021-01-15 23:39:00 Priyanka Haney [facility] PHOSPHORUS 2021-01-15 23:30:00 Lyndon Priyanka Fauzia [facility] TROPONIN I 2021-01-15 23:30:00 Lyndon Priyanka Fauzia [facility] THYROID STIMULATING 2021-01-15 23:30:00 Priyanka Haney [facility] HORMONE [facility] HEPATIC FUNCTION PANEL 2021-01-15 23:30:00 Priyanka Haney [facility] ([id number]) (ALB,T.PRO,BILI Medical Branch T,BU/BC,ALT,AST,ALK PHOS) GLYCOSYLATED HEMOGLOBIN 2021-01-15 23:30:00 Priyanka Haney [facility] (A1C) [facility] BLOOD CULTURE SCREEN 2021-01-15 23:27:00 Priyanka Haney [facility] POCT GLUCOSE (AUTOMATED) 2021-01-15 22:30:00 Celso Duran [facility] COVID-19 (ID NOW RAPID 2021-01-15 20:44:00 Priyanka Haney [facility] TESTING) Medical Branch LAB ONLY COVID 2021-01-15 20:44:00 Priyanka Haney [facility] INTERPRETATION [facility] NOTICE OF PRIVACY 2021-01-15 20:25:44 Doctor Unassigned, [facility] PRACTICES [place] [facility] CONSENT/REFUSAL FOR 2021-01-15 20:25:23 Doctor Unassigned, [facility] DIAGNOSIS AND TREATMENT [place] [facility] ASSIGNMENT OF BENEFITS 2021-01-15 20:24:58 Doctor Unassigned, [facility] [place] [facility] POCT HEMOGLOBIN A1C TEST 2021-01-01 16:39:00 Anatoly Villegas [facility] POCT GLUCOSE (AUTOMATED) 2020-12-01 17:39:00 [facility] 2020-12-01 10:29:00 [facility] BASIC METABOLIC PANEL (NA, 2020-12-01 10:29:00 Anatoly Wahl [facility] K, CL, CO2, GLUCOSE, BUN, Medica l Branch CREATININE, CA) CBC WITH DIFF 2020-12-01 10:29:00 [facility] POCT GLUCOSE (AUTOMATED) 2020-12-01 02:29:00 [facility] PARTIAL THRMPLAS 2020-12-01 00:50:00 Miguel Luo [facility] POCT GLUCOSE (AUTOMATED) 2020-11-30 23:07:00 [facility] POCT ACT LOW RANGE 2020-11-30 22:17:00 Gregory [facility] POCT ACT LOW RANGE 2020-11-30 21:55:00 Gregory [facility] BASIC METABOLIC PANEL (NA, 2020-11-30 14:26:00 Lily Franks [facility] K, CL, CO2, GLUCOSE, BUN, Medica l Branch CREATININE, CA) COVID-19 (ID NOW RAPID 2020-11-30 13:21:00 Brown Woodward [facility] TESTING) Medical Branch LAB ONLY COVID 2020-11-30 13:21:00 Brown Woodward [facility] INTERPRETATION [facility] POCT GLUCOSE(AGE >30DAYS) 2020-10-07 19:39:00 Lakshmi Woodard [facility] POCT GLUCOSE (AUTOMATED) 2020-09-07 22:28:00 Jay England [facility] POCT GLUCOSE (AUTOMATED) 2020-09-07 20:47:00 Jay England [facility] POCT GLUCOSE (AUTOMATED) 2020-09-07 20:12:00 Jay England [facility] POCT GLUCOSE (AUTOMATED) 2020-09-07 16:43:00 Jay England [facility] CAROTID DUPLEX BILATERAL - 2020-09-07 15:09:10 Lily Franks [facility] BY VASCULAR LAB [facility] POCT GLUCOSE (AUTOMATED) 2020-09-07 12:50:00 Jay England [facility] COMP. METABOLIC PANEL 2020-09-07 09:28:00 Elyse Aparicio [facility] ([id number]) [facility] CBC WITH DIFF 2020-09-07 09:28:00 [facility] POCT GLUCOSE (AUTOMATED) 2020-09-07 01:42:00 Jay England [facility] CORTISOL STIMULATION 60 2020-09-06 23:08:00 Jay England [facility] CORTISOL STIMULATION 30 2020-09-06 22:36:00 Jay England [facility] CORTISOL STIMULATION 0 MIN 2020-09-06 22:05:00 Jay Englnad [facility] POCT GLUCOSE (AUTOMATED) 2020-09-06 21:04:00 Jay England [facility] POCT GLUCOSE (AUTOMATED) 2020-09-06 19:57:00 Jay England [facility] POCT GLUCOSE (AUTOMATED) 2020-09-06 16:40:00 Jay England [facility] POCT GLUCOSE (AUTOMATED) 2020-09-06 12:45:00 [facility] 2020-09-06 11:16:00 [facility] MAGNESIUM 2020-09-06 11:16:00 Alessandra [facility] CORTISOL AM 2020-09-06 11:16:00 Alessandra [facility] COMP. METABOLIC PANEL 2020-09-06 11:16:00 Elyse Aparicio [facility] ([id number]) Medical Branch CBC WITH DIFF 2020-09-06 11:16:00 [facility]andra [facility] N-TERMINAL PRO-BNP 2020-09-06 11:16:00 Alessandra jonas [facility] POCT GLUCOSE (AUTOMATED) 2020-09-06 01:07:00 [facility]astasia [facility] TROPONIN I 2020-09-06 00:13:00 Alessandra [facility]onas [facility] SEDIMENTATION RATE 2020-09-06 00:13:00 Jay England [facility] POCT GLUCOSE (AUTOMATED) 2020-09-05 21:44:00 [facility]SE ([facility]OMATED) 2020-09-05 16:54:00 [facility] GLU[facility]SE (AUTOMATED) 2020-09-05 13:47:00 [facility] ABDOMEN PELVIS WO 2020-09-05 11:16:59 Elyse Aparicio [facility] CONTRAST [facility] CREATINE KINASE 2020-09-05 10:01:00 Alessandra [facility]onas [facility] MAGNESIUM 2020-09-05 10:01:00 Alessandra [facility]onas [facility] VITAMIN B12, LEVEL 2020-09-05 10:01:00 Elyse Aparicio [facility] TROPONIN I 2020-09-05 10:01:00 Alessandra [facility]onas [facility] COMP. METABOLIC PANEL 2020-09-05 10:01:00 Elyse Aparicio [facility] ([id number]) [facility] Branch LIPID PANEL (02199)(TOTAL 2020-09-05 10:01:00 Jay England [facility] CHOLESTEROL, [facility] Branch TRIGLYCERIDES, HDL) CBC WITH DIFF 2020-09-05 10:01:00 Alessandra [facility] GLYCOSYLATED HEMOGLOBIN 2020-09-05 10:01:00 Alessandra [facility] (A1C) [facility] PROTHROMBIN TIME / INR 2020-09-05 10:01:00 Alessandra jonas [facility] N-TERMINAL PRO-BNP 2020-09-05 10:01:00 Alessandra jonas [facility] VITAMIN D, 25-OH 2020-09-05 10:01:00 Alessandra [facility] PROCALCITONIN 2020-09-05 10:01:00 Alessandra [facility] URINE CULTURE 2020-09-05 05:12:00 Anastasia Giraldo [facility] COVID-19 (ID NOW RAPID 2020-09-05 05:12:00 Anastasia Giraldo [facility] TESTING) [facility] POCT GLUCOSE (AUTOMATED) 2020-09-05 04:24:00 Anastasia [facility]iral[facility] C[facility] VENOUS BLOOD 2020-09-05 02:29:00 Anastasia [facility] PHOSPHORUS 2020-09-05 02:22:00 [facility]andra [facility] LIPASE 2020-09-05 02:22:00 Anastasia Giraldo [facility] MAGNESIUM 2020-09-05 02:22:00 Alessandra [facility]onas [facility] TROPONIN I 2020-09-05 02:22:00 Anastasia Giraldo [facility] THYROID STIMULATING 2020-09-05 02:22:00 Elyse Aparicio [facility] HORMONE [facility] COMP. METABOLIC PANEL 2020-09-05 02:22:00 Anastasia Giraldo [facility] ([id number]) [facility] CBC WITH DIFF 2020-09-05 02:22:00 Anastasia Giraldo [facility] URINALYSIS 2020-09-05 02:22:00 Anastasia Giraldo [facility] N-TERMINAL PRO-BNP 2020-09-05 02:22:00 Anastasia Giraldo [facility] POCT GLUCOSE (AUTOMATED) 2020-09-05 01:56:00 Doctor Juan Manuel, [facility] Name [facility] NOTICE OF PRIVACY 2020-09-05 01:52:18 Doctor Juan Manuel, [facility] PRACTICES [facility] CONSENT/REFUSAL FOR 2020-09-05 01:51:48 Doctor Juan Manuel [facility] DIAGNOSIS AND TREATMENT [facility] CONSENT/REFUSAL FOR 2020-09-04 22:21:52 Doctor Juan Manuel, [facility] DIAGNOSIS AND TREATMENT [facility] POCT HEMOGLOBIN A1C TEST 2020-09-04 00:00:00 Anatoly Villegas [facility] EXTERNAL PROVIDER RECORDS 2020-08-03 06:01:00 Doctor Juan Manuel, [facility] XR LUMBAR SPINE 4 VW 2020-05-08 21:19:59 Rashad Costa [facility] XR HIPS 2 VW LEFT 2020-05-08 21:19:59 Rashad Costa [facility] ASSIGNMENT OF BENEFITS 2020-05-08 20:39:58 Doctor Juan Manuel, [facility] URINE CULTURE 2020-04-03 20:18:00 Adum, Sisi Montero [facility] GC & CHLAMYDIA AMPLIFIED 2020-04-03 20:18:00 Adum, Sisi Montero [facility] GALV ONLY - VAGINAL 2020-04-03 20:18:00 Adum, Sisi Montero [facility] PATHOGENS BY [facility]UCLEIC [facility] TRICHOMONAS AMPLIFIED 2020-04-03 20:18:00 Adum, Sisi Montero [facility] POCT URINALYSIS W/O 2020-04-03 00:00:00 Adum, Sisi Montero [facility] SPECIFIC GRAVITY [facility] POCT HEMOGLOBIN A1C TEST 2020-01-10 00:00:00 Anatoly Villegas [facility] HOSPITAL ADMISSION MISC - 2019-12-10 05:01:00 Doctor Juan Manuel, [facility] MEDICARE PATIENTS RIGHTS [facility] IMPORTANT MESSAGE BI SCREENING MAMMOGRAM 2019-11-01 17:35:15 Ernst Weeks [facility] BILATERAL Medical Branch CONSENT/REFUSAL FOR 2019-11-01 16:33:32 Doctor Unassigned, [facility] DIAGNOSIS AND TREATMENT [place] [facility] [place] ASSIGNMENT OF BENEFITS 2019-11-01 16:33:15 Doctor Unassmarcela, Un [facility] [place] [facility] IMMTRAC2 CONSENT 2019-10-11 05:01:00 Doctor Unassmarcela, [facility] [place] [facility] AGREEMENTS AUTHORIZATIONS 2019-08-30 05:01:00 Doctor Unassigned, [facility] AND IRREVOCABLE [place] [facility] [place] ASSIGNMENTS (FORM 2001) POCT GLUCOSE (AUTOMATED) 2019-08-16 13:02:00 [facility]na [facility] PO[facility] GLUCOSE (AUTOMATED) 2019-08-16 09:53:00 Rhianna Romano Uni versity [facility] MAGNESIUM 2019-08-16 09:52:00 Izaiah Miles [employer] [facility] BASIC METABOLIC PANEL (NA, 2019-08-16 09:52:00 Izaiah Miles [facility] K, CL, CO2, GLUCOSE, BUN, Medica l Branch CREATININE, CA) CBC WITH DIFFERENTIAL 2019-08-16 09:52:00 Izaiah Miles [facility] POCT GLUCOSE (AUTOMATED) 2019-08-16 07:10:00 Rhianna Romano Uni versity [facility] POCT GLUCOSE (AUTOMATED) 2019-08-16 05:02:00 Rhianna Romano Uni versity [facility] CT HEAD WO CONTRAST 2019-08-16 00:49:18 Shanta Spring [facility] POCT GLUCOSE (AUTOMATED) 2019-08-15 22:14:00 Rhianna Romano Uni vers[facility] POCT GLUCOSE (AUTOMATED) 2019-08-15 20:40:00 Rhianna Romano [facility] ACTIVATED PARTIAL THRMPLAS 2019-08-15 20:35:00 Izaiah Miles [facility] POCT GLUCOSE (AUTOMATED) 2019-08-15 16:53:00 Rhianna Romano Uni versity [facility] POCT ACT LOW RANGE 2019-08-15 15:35:00 Rhianna Romano [facility] POCT ACT LOW RANGE 2019-08-15 15:14:00 Rhianna Romano [facility] POCT ACT LOW RANGE 2019-08-15 14:37:00 Rhianna Romano [facility] POCT ACT LOW RANGE 2019-08-15 14:20:00 Rhianna Romano [facility] MAGNESIUM 2019-08-15 09:53:00 Izaiah Miles [facility] o [facility] BASIC METABOLIC PANEL (NA, 2019-08-15 09:53:00 Izaiah Miles [facility] K, CL, CO2, GLUCOSE, BUN, Medica l Branch CREATININE, CA) CBC WITH DIFFERENTIAL 2019-08-15 09:53:00 Izaiah Miles [facility] ACTIVATED PARTIAL THRMPLAS 2019-08-15 09:53:00 Shanta Spring [facility] POCT GLUCOSE (AUTOMATED) 2019-08-15 09:47:00 Rhianan Romano [facility]ity [facility] POCT GLUCOSE (AUTOMATED) 2019-08-15 06:33:00 Rhianna Romano [facility] POCT GLUCOSE (AUTOMATED) 2019-08-15 03:08:00 [facility]ianna [facility] BASIC METABOLIC PANEL (NA, 2019-08-15 01:48:00 Izaiah Miles [facility] K, CL, CO2, GLUCOSE, BUN, Medica l Branch CREATININE, CA) ACTIVATED PARTIAL THRMPLAS 2019-08-15 01:48:00 Shanta [facility] POCT GLUCOSE (AUTOMATED) 2019-08-15 01:46:00 Rhianna Romano [facility] POCT GLUCOSE (AUTOMATED) 2019-08-14 22:29:00 Bandar Romanomad Uni vers[facility] POCT GLUCOSE (AUTOMATED) 2019-08-14 20:42:00 Rhianna Romano [facility] ACTIVATED PARTIAL THRMPLAS 2019-08-14 19:14:00 Abrol, Robinder U [facility] POCT GLUCOSE (AUTOMATED) 2019-08-14 16:43:00 Rhianna Romano [facility] ECHO ROUTINE W/DOPPLER 2019-08-14 14:10:31 Izaiah Miles [facility] POCT GLUCOSE (AUTOMATED) 2019-08-14 13:50:00 Rhianna Romano [facility] GALV ONLY - INFLUENZA A B 2019-08-14 13:42:00 [facility] E[facility]-12 LEAD 2019-08-14 13:11:24 Juan [facility] ACTIVATED PARTIAL THRMPLAS 2019-08-14 10:04:00 Shanta Spring [facility] MAGNESIUM 2019-08-14 10:03:00 Izaiah [facility] BASIC METABOLIC PANEL (NA, 2019-08-14 10:03:00 Izaiah Miles [facility] K, CL, CO2, GLUCOSE, BUN, Medica l Branch CREATININE, CA) CBC WITH DIFFERENTIAL 2019-08-14 10:03:00 Izaiah Miles [facility] POCT GLUCOSE (AUTOMATED) 2019-08-14 01:18:00 Rhianna Romano [facility] POCT GLUCOSE (AUTOMATED) 2019-08-13 23:08:00 Rhianna Romano [facility] ACTIVATED PARTIAL THRMPLAS 2019-08-13 22:43:00 Shanta Spring [facility] POCT GLUCOSE (AUTOMATED) 2019-08-13 19:28:00 Rhianna Romano [facility] CORONARY ANGIOGRAPHY 2019-08-13 16:40:26 Doctor Unassigned, [facility] [place] [facility] TROPONIN I 2019-08-13 13:14:00 Saw [facility] POCT GLUCOSE (AUTOMATED) 2019-08-13 13:12:00 Rhianna Romano [facility] XR CHEST 1 VW 2019-08-13 08:08:00 [facility] 2019-08-13 05:24:00 [facility] TROPONIN I 2019-08-13 05:24:00 Saw [facility] BASIC METABOLIC PANEL (NA, 2019-08-13 05:24:00 Shanta Spring [facility] K, CL, CO2, GLUCOSE, BUN, Medica l Branch CREATININE, CA) CBC WITH DIFFERENTIAL 2019-08-13 05:24:00 Izaiah Miles [facility] GLYCOSYLATED HEMOGLOBIN 2019-08-13 05:24:00 [facility] PROTHROMBIN TIME / INR 2019-08-13 05:24:00 Shanta Spring [facility] ACTIVATED PARTIAL THRMPLAS 2019-08-13 05:24:00 Shanta Spring [facility] SAGE [facility] N-TERMINAL PRO-BNP 2019-08-13 05:24:00 [facility] 2019-08-13 04:39:22 Rhianna Romano [facility] EXTERNAL PROVIDER - ADC 2019-08-05 05:01:00 Doctor Juan Manuel, [facility] CARDIOLOGY [facility] NOTICE OF BILLING 2019-02-04 14:40:05 Doctor Juan Manuel, [facility] PRACTICES FOR MEDICARE [place] [facility] PATIENTS NO SHOW OR MISSED 2019-01-04 19:28:18 Doctor Juan Manuel, [facility] APPOINTMENT POLICY [place] [facility] h ACKNOWLEDGEMENT REFERRAL- REQUEST/RESPONSE 2018-12-20 05:01:00 Doctor Juan Manuel , [facility] Name Medical Branch PATIENT CORRESPONDENCE 2018-12-06 05:01:00 Doctor Juan Manuel, [facility] (LETTERS, USPS [facility] [place] [facility] DOCUMENTATION) Plan of Care Planned Activity Planned Date Details Comments Source Future Scheduled 2022 Screening for [facility] Test 00:00:00 malignant neoplasm of Medica l Branch colon (procedure) [code = 370260069] Future Scheduled 2022 Screening for [facility] Test 00:00:00 malignant neoplasm of Medica l Branch colon (procedure) [code = 349727812] Future Scheduled 2021-09-07 Creatinine [facility] Test 00:00:00 measurement Medical Branch (procedure) [code = 47688912] Future Scheduled 2021-09-07 Creatinine [facility] Test 00:00:00 measurement Medical [facility] (procedure) [code = 11513456] Future Scheduled 2021-09-05 Calculated low [facility] Test 00:00:00 density lipoprotein Medical [facility] cholesterol level (procedure) [code = 260098258] Future Scheduled 2021-09-05 Calculated low [facility] Test 00:00:00 density lipoprotein Medical [facility] cholesterol level (procedure) [code = 770590623] Future Scheduled 2021-05-08 Depression screening [facility] Test 00:00:00 (procedure) [code = Medical Branch 253825735] Future Scheduled 2021-05-08 Depression screening [facility] [place] Test 00:00:00 (procedure) [code = Medical Branch 733582818] Future Scheduled 2021-03-07 Hemoglobin A1c [facility] Test 00:00:00 measurement [facility] (procedure) [code = 16986182] Future Scheduled 2021-03-07 Hemoglobin A1c [facility] Test 00:00:00 measurement [facility] (procedure) [code = 02490056] Future Scheduled 2021-01-27 INFLUENZA VACCINE [facility] [place] Test 00:00:00 (Season Ended) [code Medical Branch = INFLUENZA VACCINE (Season Ended)] Future Scheduled 2021-01-27 INFLUENZA VACCINE [facility] [place] Test 00:00:00 (Season Ended) [code Medical Branch = INFLUENZA VACCINE (Season Ended)] Future Scheduled 2020-10-31 Screening for [facility] Test 00:00:00 malignant neoplasm of Medica l Branch breast (procedure) [code = 091994932] Future Scheduled 2020-10-31 Screening for [facility] Test 00:00:00 malignant neoplasm of Medica l Branch breast (procedure) [code = 008901261] Future Scheduled 2020-09-25 Screening for [facility] Test 00:00:00 malignant neoplasm of Medica l Branch cervix (procedure) [code = 488213164] Future Scheduled 2020-09-25 Screening for [facility] Test 00:00:00 malignant neoplasm of Medica l Branch cervix (procedure) [code = 134627126] Future Scheduled 2020-05-10 Diabetic foot [facility] Test 00:00:00 examination Medical Branch (regime/therapy) [code = 744125614] Future Scheduled 2020-05-10 Diabetic foot [facility] Test 00:00:00 examination Medical Branch (regime/therapy) [code = 165901130] Future Scheduled 2019-09-01 Microalbumin [facility] Test 00:00:00 measurement, urine, Medical Branch quantitative (procedure) [code = 788019692] Future Scheduled 2019-09-01 Microalbumin [facility] Test 00:00:00 measurement, urine, Medical Branch quantitative (procedure) [code = 584650073] Future Scheduled 1991 DTaP,Tdap,and Td [facility] [place] Test 00:00:00 Vaccines (1 - Tdap) Medical Branch [code = DTaP,Tdap,and Td Vaccines (1 - Tdap)] Future Scheduled 1991 DTaP,Tdap,and Td [facility] [place] Test 00:00:00 Vaccines (1 - Tdap) Medical Branch [code = DTaP,Tdap,and Td Vaccines (1 - Tdap)] Future Scheduled 1990 Hepatitis C screening [facility] [place] Test 00:00:00 (procedure) [code = Medical Branch [id number]] Future Scheduled 1990 Hepatitis C screening [facility] [place] Test 00:00:00 (procedure) [code = Medical Branch [id number]] Future Scheduled 1988 SARS-CoV-2 (COVID-19) [facility] [place] Test 00:00:00 Vaccine (1) [code = Medical Branch SARS-CoV-2 (COVID-19) Vaccine (1)] Future Scheduled 1988 SARS-CoV-2 (COVID-19) [facility] [place] Test 00:00:00 Vaccine (1) [code = Medical Branch SARS-CoV-2 (COVID-19) Vaccine (1)] Future Scheduled 1982 Examination of retina [facility] [place] Test 00:00:00 (procedure) [code = Medical Branch [id number]] Future Scheduled 1982 Examination of retina [facility] [place] Test 00:00:00 (procedure) [code = Medical Branch [id number]] Future Scheduled 1978 [facility]CCAL 0-64 [facility] YEARS COMBINED SERIES Medica l Branch (1 of 1 - PPSV23) [code = PNEUMOCOCCAL 0-64 YEARS COMBINED SERIES (1 of 1 - PPSV23)] Future Scheduled 1978 PNEUMOCOCCAL 0-64 Univer sity [facility] Test 00:00:00 YEARS COMBINED SERIES Medica l Branch (1 of 1 - PPSV23) [code = PNEUMOCOCCAL 0-64 YEARS COMBINED SERIES (1 of 1 - PPSV23)] Encounters Start End Encounter Admission Attending Care Care Encounter Source Date/Time Date/Time Type Type Clinicians Facility Department ID 2021-03-29 Emergency [facility] [id number] Univers 23:28:09 ity of [facility] 2021-03-28 Emergency X [facility] [id number] Univers 11:58:59 ity of [facility] 2021-03-28 Emergency [facility] [id number] Univers 11:58:17 ity of [facility] 2021-03-26 Emergency [facility] [id number] Univers 12:39:58 ity of [facility] 2021-07-09 2021-07-09 Outpatient R MARK [facility] [id number] 5Q-20 Univers 13:30:00 13:30:00 ANATOLY [id number] ity of [facility] 2021-06-21 2021-06-21 [facility] [id number] Q-20 Univers 16:00:00 16:00:00 WONDIFUL [id number] ity o f [facility] 2021-06-21 2021-06-21 Outpatient [facility] [id number] Univers 16:00:00 16:00:00 WONDIFUL ity o f [facility] 2021-05-15 2021-05-15 Refleticia [facility] 1.2.840.114 [id number] Univers 00:00:00 00:00:00 Wondiful A HEALTH 350.1.13.10 ity [facility] 4.2.7.2.686 Raffy as PROFESSIO [phone] Ut dical [place] [address] Branch OFFICE BUILDING ONE 2021-05-13 2021-05-13 Orders Doctor VAISHALI 1.2.840.114 [id number] Univers 00:00:00 00:00:00 Only Unassigned, AIDA 350.1.13.10 ity of [place] [facility] 4.2.7.2.686 Raffy as [phone] [facility] 009 Branch 2021-02-12 2021-02-12 Emergency [facility] 1.2.840.114 [id number] Univers 14:34:00 17:16:00 Fabby Hawkins 350.1.13.10 it[place] [phone] [facility] 084 Branch 2021-02-12 2021-02-12 Office [facility] 1.2.840.114 [id number] Univers 13:04:40 15:13:[address] [facility] 350.1.13.10 it y of [place] 4.2.7.2.686 Raffy as Charly?Blea [phone] [address] Medical Office [facility] 2021-02-12 2021-02-12 Outpatient [facility] [id number] -[id number] Univers 13:00:00 13:00:00 [facility] [id number] ity [facility] 2021-02-12 2021-02-12 Outpatient R [facility] [id number] Univers 13:00:00 13:00:00 [facility] ity [facility] 2021-01-19 2021-01-19 Transition Matthew Daniel 1.2.840.114 [id number] Univers 00:00:00 00:00:00 of Veronika Mata 350.1.13.10 it y of [place] [phone] [facility] 403 Branch 2021-01-15 2021-01-17 Hospital Roger [facility] 1.2.840.114 [id number] Univers 15:17:00 13:06:00 Encounter Celso Hawkins 350.1.13.10 ity of [place] [phone] [facility] 081 Branch 2021-01-15 2021-01-15 Office [facility] 1.2.840.114 [id number] Univers 14:09:25 15:11:21 Visit Lily Hawkins 350.1.13.10 it[place] [phone] [facility] 059 [facility] 2021-01-15 2021-01-15 Outpatient R GREGORY, [facility] [id number] -20 Univers 14:40:00 14:40:00 LILY [id number] ity o [facility] 2021-01-15 2021-01-15 Outpatient R GREGORY, [facility] [id number] Univers 14:40:00 14:40:00 LILY turner o [facility] 2021-01-01 2021-01-01 Office [facility] 1.2.441.591 [id number] Univers 11:28:43 12:58:14 Visit Anatoly Hawkins 350.1.13.10 i ty kranthi [place] [phone] [facility] 220 [facility] 2021-01-01 2021-01-01 Outpatient [facility] [id number] 5Q-20 Univers 11:30:00 11:30:00 ANATOLY [id number] [facility] 2021-01-01 2021-01-01 Outpatient R [facility] [id number] Univers 11:30:00 11:30:00 ANATOLY [facility] 2020-12-18 2020-12-18 Amy [facility] 1.2.840.114 [id number] Univers 00:00:00 00:00:00 Wondiful A Health 350.1.13.10 ity kranthi [place] 4.2.7.2.686 Raffy as Professio [phone] Ut [facility] 044 [place] Office Building One 2020-12-02 2020-12-02 Outpatient R [facility] [id number] -20 Univers 16:00:00 16:00:00 LILY [id number] jiay o [facility] 2020-12-02 2020-12-02 Outpatient R [facility] [id number] Univers 16:00:00 16:00:00 LILY ity o f [facility] 2020-11-30 2020-12-01 [facility] Lily Franks 1.2.840.114 [id number] Univers 17:33:00 15:15:00 Encounter Ra [place] Aida 350.1.1 3.10 [facility] 4.2.7.2 .686 [facility] [phone] [place] [id number] Branch 2020-12-01 2020-12-01 Outpatient [facility] [id number] Q-20 Univers 14:00:00 14:00:00 WONDIFUL [id number] ity o f [facility] 2020-12-01 2020-12-01 Outpatient R [facility] [id number] Univers 14:00:00 14:00:00 WONDIFUL ity o f [facility] 2020-11-30 2020-11-30 Outpatient [facility] [id number] -[id number] Univers 08:00:00 08:00:00 [id number] [facility] 2020-11-30 2020-11-30 Outpatient R [facility] [id number] Univers 08:00:00 08:00:00 ity [facility] 2020-11-30 2020-11-30 [facility] Diana Woodward 1.2.840.114 [id number] Univers 07:45:00 07:59:00 Encounter Brown Avery Aida 350.1.13.10 [facility] 4.2.7.2.686 Raffy as [phone] [place] [address] Branch 2020-11-27 2020-11-27 Outpatient R [facility] [id number] 5Q-20 Univers 14:00:00 14:00:00 ANATOLY [id number] ity [facility] 2020-11-27 2020-11-27 Outpatient Sonya [facility] [id number] Univers 14:00:00 14:00:00 ANATOLY ity [facility] 2020-11-25 2020-11-25 Telephone GregoryDiana 1.2.230.558 [id number] Univers 00:00:00 00:00:00 Qiagerry [place] 350.1.13.10 i ty of Hospital 4.2.7.2.686 Raffy as [phone] [address] 2020-11-25 2020-11-25 Telephone [facility] 1.2.768.547 [id number] Univers 00:00:00 00:00:00 Patient [place] 350.1.13.10 i ty of Does Not [place] 4.2.7.2.686 Raffy as Have A Professio [phone] Ut dical nal 843 [facility] 2020-11-16 2020-11-16 Telephone GregoryDiana 1.2.152.241 [id number] Univers 00:00:00 00:00:00 Qiagerry Zhuy 350.1.13.10 i ty of Hospital 4.2.7.2.686 Raffy as [phone] [address] 2020-11-13 2020-11-13 Office [facility] 1.2.840.114 [id number] Univers 14:46:41 15:21:27 Visit Lily Hawkins 350.1.13.10 it[place] [phone] Ut dical nal 059 [facility] 2020-11-13 2020-11-13 Outpatient R GREGORY [facility] [id number] Univers 14:00:00 14:00:00 LILY turner o f [facility] 2020-11-13 2020-11-13 Outpatient R IGOR [facility] [id number] Q-20 Univers 13:00:00 13:00:00 WONDIFUL [id number] ity o f [facility] 2020-11-12 2020-11-12 Telephone [facility] 1.2.840.114 [id number] Univers 00:00:00 00:00:00 Wondiful A Health 350.1.13.10 ity of [place] 4.2.7.2.686 Raffy as Professio [phone] Me dical nal 044 [facility] 2020-10-28 2020-10-28 Pre Visit Igor [facility] 1.2.840.114 [id number] Univers 00:00:00 00:00:00 Outreach Wondiful A Health 350.1.13.10 ity of [place] 4.2.7.2.686 [place]affy as Professio [phone] [address] 2020-10-07 2020-10-07 Office Vance [facility] 1.2.840.114 [id number] Univers 13:57:34 15:30:50 Visit Wentong [place] 350.1.13.10 i ty of [place] [phone] [facility] 220 [facility] 2020-10-07 2020-10-07 Outpatient [facility] [id number] -[id number] Univers 14:00:00 14:00:00 [facility] [id number] ity [facility] 2020-10-07 2020-10-07 Outpatient R [facility] [id number] Univers 14:00:00 14:00:00 [facility] ity [facility] 2020-10-06 2020-10-06 Outpatient R [facility] [id number] -[id number] Univers 14:30:00 14:30:00 [facility] [id number] [facility] 2020-10-06 2020-10-06 Outpatient R [facility] [id number] Univers 14:30:00 14:30:00 [facility] 2020-10-01 2020-10-01 Office [facility] 1.2.840.114 [id number] Univers 15:08:27 16:09:31 Visit Wondiful A Health 350.1.13.10 ity of [place] 4.2.7.2.686 [place]aff[place] as Professio [phone] [address] One 2020-10-01 2020-10-01 Office [facility] 1.2.840.114 [id number] 15:08:27 16:09:31 Visit Wondiful A Health 350.1.13.10 [place] 4.2.7.2.686 Professio [phone] [place] [address] Office Building One 2020-10-01 2020-10-01 Outpatient R IGOR [facility] [id number] Univers 15:00:00 15:00:00 WONDIFUL ity o f [facility] 2020-09-26 2020-09-26 Refleticia [facility] 1.2.840.114 [id number] Univers 00:00:00 00:00:00 Wondiful A Health 350.1.13.10 ity of [place] 4.2.7.2.686 [place]aff[place] as Professio [phone] [address] Office Building One 2020-09-24 2020-09-24 [facility] 1.2.840.114 [id number] Univers 00:00:00 00:00:00 Wondiful A Health 350.1.13.10 ity of [place] 4.2.7.2.686 [place]aff[place] as Professio [phone] [address] Office Building One 2020-09-11 2020-09-11 [facility] 1.2.840.114 [id number] Univers 00:00:00 00:00:00 Wondiful A Health 350.1.13.10 ity of [place] 4.2.7.2.686 [place] as Professio [phone] [address] Office Building One 2020-09-09 2020-09-09 Transition Matthew Gonzalez 1.2.840.114 [id number] Univers 00:00:00 00:00:00 of Care Garica A Mata 350.1.13.10 ity of [place] [phone] [address] 2020-09-04 2020-09-07 [facility] Ronnie Murry [facility] 1.2.8 40.114 [id number] Univers 20:58:00 18:15:00 Encounter Anastasia Giraldo [place] 350.1.13.1 0 ity of Elyse Aparicio 4.2.7.2.686 [facility] [phone] Medical 081 Branch 2020-09-04 2020-09-04 Office [facility] 1.2.593.360 [id number] Univers 16:01:54 17:11:05 Visit Anatoly Hawkins 350.1.13.10 i ty of [place].2.[place] [phone] Ut dical nal 220 [facility] 2020-09-04 2020-09-04 Outpatient [facility] [id number] 5Q-20 Univers 16:00:00 16:00:00 ANATOLY [id number] [facility] 2020-09-04 2020-09-04 Outpatient [facility] [id number] Univers 16:00:00 16:00:00 [facility] 2020-09-04 2020-09-04 Outpatient R [facility] [id number] Univers 16:00:00 16:00:00 [facility] 2020-09-04 2020-09-04 Orders Doctor VAISHALI 1.2.840.114 [id number] Univers 00:00:00 00:00:00 Only Unassigned, AIDA 350.1.13.10 ity of [place] [facility] 4.2.7.2.686 Raffy as [phone] [address] 2020-08-13 2020-08-13 Patient [facility] 1.2.840.114 [id number] Univers 00:00:00 00:00:00 Outreach George PRIMARY 350.1.13.10 i ty of [facility] 4.2.7.2.[place] [phone] Ut dical 388 Branch 2020-08-04 2020-08-04 Refill [facility] 1.2.481.462 [id number] Univers 00:00:00 00:00:00 Anatoly Hawkins 350.1.13.10 i ty of [place] [phone] Me dical nal 220 [facility] 2020-08-04 2020-08-04 Amy [facility] 1.2.840.114 [id number] Univers 00:00:00 00:00:00 Wondiful A Health 350.1.13.10 ity of [place] 4.2.7.2.686 [place]aff[place] as Professio [phone] [address] Office [facility] One 2020-08-03 2020-08-03 Orders Doctor VAISHALI 1.2.840.114 [id number] Univers 00:00:00 00:00:00 Only Unassigned, AIDA 350.1.13.10 ity of [place] [facility] 4.2.7.2.686 Raffy as [phone] [address] 2020-07-16 2020-07-16 Outpatient Sonya COSTA [facility] [id number] Univers 11:15:00 11:15:00 WONDIFUL ity o f [facility] 2020-06-22 2020-06-22 Amy [facility] 1.2.840.114 [id number] Univers 00:00:00 00:00:00 Wondiful A Health 350.1.13.10 ity of [place] 4.2.7.2.686 [place]aff[place] as Professio [phone] [address] One 2020-06-19 2020-06-19 Outpatient R IGOR [facility] [id number] Q-20 Univers 14:00:00 14:00:00 WONDIFUL [id number] ity o f [facility] 2020-06-08 2020-06-08 [facility] 1.2.840.114 [id number] Univers 00:00:00 00:00:00 Wondiful A Health 350.1.13.10 ity of [place] 4.2.7.2.686 [place] as Professio [phone] [address] One 2020-06-05 2020-06-05 Amy [facility]atD[facility] 1.2.840.114 [id number] Univers 00:00:00 00:00:00 Wondiful A Health 350.1.13.10 ity of [place] 4.2.7.2.686 [place] as Professio [phone] [address] Office [facility] One 2020-05-28 2020-05-28 Outpatient R IGOR [facility] [id number] Q-20 Univers 15:00:00 15:00:00 WONDIFUL [id number] ity o f [facility] 2020-05-28 2020-05-28 Outpatient [facility] [id number] Univers 15:00:00 15:00:00 WONDIFUL ity o f [facility] 2020-05-19 2020-05-19 [facility] 1.2.840.114 [id number] Univers 00:00:00 00:00:00 Wondiful A Health 350.1.13.10 ity of [place] 4.2.7.2.686 [place] as Professio [phone] [address] 2020-05-14 2020-05-14 [facility] 1.2.840.114 [id number] Univers 00:00:00 00:00:00 Wondiful A Health 350.1.13.10 ity of [place] 4.2.7.2.686 [place] as Professio [phone] [address] 2020-05-13 2020-05-13 [facility] 1.2.840.114 [id number] Univers 00:00:00 00:00:00 Management Wondiful A Health 350.1.13.10 ity of [place] 4.2.7.2.686 [place]aff[place] as Professio [phone] [address] Office [facility] [address] 2020-05-08 2020-05-08 [facility] 1.2.459.270 [id number] Univers 14:47:36 23:59:00 Encounter Wondiful A [place] 350.1.13.10 ity [place].2.[place] [phone] [facility] 807 [place] 2020-05-08 2020-05-08 Outpatient R MARK [facility] [id number] 5Q-20 Univers 16:30:00 16:30:00 ANATOLY [id number] ity of [facility] 2020-05-08 2020-05-08 Outpatient R MARK [facility] [id number] Univers 16:30:00 16:30:00 ANATOLY ity [facility] 2020-05-08 2020-05-08 Office [facility] 1.2.840.114 [id number] Univers 13:10:21 13:58:56 [facility] 350.1.13.10 ity of [place] 4.2.7.2.686 Raffy as Professio [phone] Me dical nal 044 [place] Office Building One 2020-05-08 2020-05-08 Orders Doctor VAISHALI 1.2.840.114 [id number] Univers 00:00:00 00:00:00 Only Unassigned, AIDA 350.1.13.10 ity of [place] [facility] 4.2.7.2.686 Raffy as [phone] [address] 2020-05-01 2020-05-01 Outpatient R IGOR [facility] [id number] Q-20 Univers 10:30:00 10:30:00 WONDIFUL [id number] ity o f [facility] 2020-05-01 2020-05-01 Outpatient [facility] [id number] Univers 10:30:00 10:30:00 WONDIFUL ity o f [facility] 2020-04-17 2020-04-[address] [facility] 1.2.840.114 [id number] Univers 11:00:00 11:30:00 ne Visit Sisi Hawkins 350.1.13.10 ity [place] [phone] Ut dical nal 134 [facility] 2020-04-17 2020-04-17 Outpatient R SHILA [facility] [id number] -20 Univers 11:00:00 11:00:00 SISI ity [facility] 2020-04-17 2020-04-17 Outpatient R SHILA [facility] [id number] Univers 11:00:00 11:00:00 SISI ity [facility] 2020-04-14 2020-04-14 Refleticia [facility] 1.2.840.114 [id number] Univers 00:00:00 00:00:00 Wondiful A Health 350.1.13.10 ity of [place] 4.2.7.2.686 Raffy as Professio [phone] Ut dical nal 044 [facility] One 2020-04-13 2020-04-13 [facility] BorjaVillegasD[facility] 1.2.028.699 [id number] Univers 00:00:00 00:00:00 Anatoly Hawkins 350.1.13.10 i ty of [place].2.[place] [phone] Ut dical nal 220 [facility] 2020-04-08 2020-04-[address] [facility] 1.2.093.251 [id number] Univers 00:00:00 00:00:00 Sisi Hawkins 350.1.13.10 ity [place].2.[place] [phone] Ut dical nal 134 [facility] 2020-04-07 2020-04-[address] [facility] 1.2.840.114 [id number] Univers 00:00:00 00:00:00 Management Sisi Hawkins 350.1.13.10 ity of [place] 4[place].7.2.[place] [phone] Ut dical nal 134 [facility] 2020-04-03 2020-04-[address] [facility] 1.2.840.114 [id number] Univers 13:15:01 14:30:02 Visit Sisi Hawkins 350.1.13.10 ity [place] 4[place].7.2.[place] [phone] Ut dical nal 134 [facility] 2020-04-03 2020-04-03 Outpatient R ADUM, [facility] [id number] Univers 13:30:00 13:30:00 SISI turner of [facility] 2020-04-03 2020-04-03 Outpatient R AD, [facility] [id number] -[id number] Univers 10:30:00 10:30:00 SISI ity of [facility] 2020-04-03 2020-04-03 Outpatient R SHILA, [facility] [id number] Univers 10:30:00 10:30:00 SISI ity of [facility] 2020-04-01 2020-04-01 Telephone Serena Garsia [facility] 1.2.840.114 [id number] Univers 00:00:00 00:00:00 Cam [place] 350.1.13.10 i ty of [place].7.2.[place] [phone] Ut dicca nal 134 [facility] 2020-03-20 2020-03-20 Refleticia [facility] 1.2.840.114 [id number] Univers 00:00:00 00:00:00 Wondiful A Health 350.1.13.10 ity of [place] 4.2.7.2.686 [place]aff[place] as Professio [phone] Ut dical nal 044 [facility] 2020-03-09 2020-03-09 Refleticia [facility] 1.2.840.114 [id number] Univers 00:00:00 00:00:00 Wondiful A Health 350.1.13.10 ity of [place] 4.2.7.2.686 Raffy as Professio [phone] Ut dical nal 044 [place] Office [facility] One 2020-02-17 2020-02-17 Telephone Igor [facility] 1.2.840.114 [id number] Univers 00:00:00 00:00:00 Wondiful A Health 350.1.13.10 ity of [place] 4.2.7.2.686 Raffy as Professio [phone] Ut dical nal 044 [place] Office [facility] One 2020-02-17 2020-02-17 Telephone Igor [facility] 1.2.840.114 [id number] Univers 00:00:00 00:00:00 Wondiful A Health 350.1.13.10 ity of [place] 4.2.7.2.686 Raffy as Professio [phone] Ut dical nal 044 [place] Office [facility] One 2020-01-13 2020-01-13 Refleticia [facility] 1.2.840.114 [id number] Univers 00:00:00 00:00:00 Wondiful A Health 350.1.13.10 ity of [place] 4.2.7.2.686 Raffy as Professio [phone] Ut dical nal 044 [place] Office Building One 2020-01-11 2020-01-11 Unit Control Worker 1, Adc Lab [facility] 1.2.840.114 [id number] Univers 10:55:34 11:10:34 Visit Anatoly Villegas 350.1.13.10 ity of [place] [phone] [facility] [address] [place] 2020-01-11 2020-01-11 Outpatient R [facility] [id number] Univers 11:00:00 11:00:00 [id number] ity [facility] 2020-01-11 2020-01-11 Outpatient R [facility] [id number] Univers 11:00:00 11:00:00 ity [facility] 2020-01-10 2020-01-10 Office [facility] 1..[id number] Univers 16:40:13 17:43:53 Visit Anatoly Hawkins 350.1.13.10 [place] [facility] [phone] [facility] nal 220 [facility] 2020-01-10 2020-01-10 [facility] [id number] Univers 16:30:00 16:30:00 ANATOLY [id number] ity [facility] 2020-01-10 2020-01-10 [facility] [id number] Univers 16:30:00 16:30:00 [facility] 2019-12-10 2019-12-10 Orders Doctor TOM [id number] [id number] Univers 00:00:00 00:00:00 Only Unassigned, AIDA 350.1.13.10 ity of [place] [facility] 4.2.7.2.686 Raffy as [phone] [facility] [address] [place] 2019-12-10 2019-12-10 Telephone [facility] [id number] Univers 00:00:00 00:00:00 Anatoly Hawkins 350.1.13.10 [id number] [phone] [facility] 220 [facility] 2019-12-05 2019-12-05 [facility]icia [facility] [id number] Univers 00:00:00 00:00:00 Anatoly Hawkins [id number] [id number] [phone] [facility] 220 [facility] 2019-11-06 2019-11-06 [facility] [id number] Univers 15:40:00 15:40:00 LILY [id number] yue o [facility] 2019-11-06 2019-11-06 Outpatient [facility] [id number] Univers 15:40:00 15:40:00 [facility] [facility] 2019-11-03 2019-11-03 [facility] 1.2.840.114 [id number] Univers 00:00:00 00:00:00 Wonful A [facility] 350.1.13.10 ity [facility] 4.2.7.2.686 Raffy as Professio [phone] [facility] 044 [place] Office [facility] One 2019-11-01 2019-11-01 Outpatient R KILO [facility] [id number] Univers 11:35:42 23:59:00 ERNST ity [facility] 2019-11-01 2019-11-01 [facility] ..840.114 [id number] Univers 11:35:00 23:59:00 [facility] Clare Ernst Hawkins 350.1.13.10 ity of [place] [phone] [address] 2019-11-01 2019-11-01 [facility] [id number] 5Q-20 Univers 11:40:00 11:40:00 ERNST Jones [facility] 2019-11-01 2019-11-01 Orders Doctor VAISHALI 1.2.840.114 [id number] Univers 00:00:00 00:00:00 Only Unassigned, AIDA 350.1.13.10 ity of [place] [facility] 4.2.7.2.686 Raffy as [phone] [address] 2019-10-25 2019-10-25 [facility] [id number] 5Q-20 Univers 00:00:00 00:00:00 ERNST [id number] [facility] 2019-10-11 2019-10-11 Office [facility] 1.2.207.759 [id number] Univers 14:59:15 16:12:30 Visit Ernst Hawkins 350.1.13.10 i ty [place] Profess[place] [phone] Ut dical nal 134 [facility] 2019-10-11 2019-10-11 [facility] [id number] 5Q-20 Univers 15:00:00 15:00:00 ERNST [id number] [facility] 2019-10-11 2019-10-11 Outpatient [facility] [id number] Univers 15:00:00 15:00:00 ERNST [facility] 2019-10-11 2019-10-11 Orders Doctor VAISHALI 1.2.840.114 [id number] Univers 00:00:00 00:00:00 Only Unassigned, AIDA 350.1.13.[address] [facility] 4.2.7.2.686 Raffy as [phone] [address] 2019-10-07 2019-10-07 [facility] [id number] Univers 14:00:00 14:00:00 [facility] 2019-09-30 2019-09-30 [facility] 1.2.060.041 [id number] Univers 00:00:00 00:00:00 Anatoly Hawkins 350.1.13.10 i [place] Profess[place] [phone] Ut dical nal 220 [facility] 2019-09-20 2019-09-20 Outpatient R MARK [facility] [id number] Univers 16:30:00 16:30:00 ANATOLY itmargarette [facility] 2019-09-20 2019-09-20 Telemedici [facility] 1.2.840.114 [id number] Univers 09:52:35 10:22:35 ne Visit Anatoly Hawkins 350.1.13.10 ity of [place].2.[place] Profess[place] [phone] Ut dical nal 220 [facility] 2019-08-30 2019-08-30 Unit Control Worker 2, Adc Lab [facility] 1.2.840.114 [id number] Univers 09:08:00 09:23:00 Visit Lily Franks 350.1.13.10 ity of [place].2.[place] Profess[place] [phone] [facility] 353 [facility] 2019-08-30 2019-08-30 Outpatient R [facility] [id number] -[id number] Univers 09:15:00 09:15:00 [id number] ity of [facility] 2019-08-30 2019-08-30 Outpatient [facility] [id number] Univers 09:15:00 09:15:00 LILY ity o f [facility] 2019-08-30 2019-08-30 Orders Doctor TOM 1.2.840.114 [id number] Univers 00:00:00 00:00:00 Only Unassigned, AIDA 350.1.13.[address] [facility] 4.2.7.2.686 Raffy as [phone] [address] 2019-08-22 2019-08-22 Outpatient R IGOR [facility] [id number] Q-20 Univers 14:00:00 14:00:00 WONDIFUL [id number] ity o f [facility] 2019-08-22 2019-08-22 Outpatient R IGOR [facility] [id number] Univers 14:00:00 14:00:00 WONDIFUL ity o f [facility] 2019-08-22 2019-08-22 Telemedici [facility] 1.2.840.114 [id number] Univers 09:19:01 09:49:01 ne Visit Wondiful [facility] 350.1.13.10 ity of [place] 4.2.7.2.686 Raffy as Professio [phone] [address] One 2019-08-22 2019-08-22 Transition Matthew Chávez 1.2.840.114 [id number] Univers 00:00:00 00:00:00 of Care Jessica Mata 350.1.13.10 it y of [place].7.2.[place] [phone] [facility] [address] [place] 2019-08-20 2019-08-20 Transition David Chávezjoshua 1.2.840.114 [id number] Univers 00:00:00 00:00:00 of Care Jessica Mata 350.1.13.10 it y of [place].7.2.[place] [phone] [facility] 403 [place] 2019-08-19 2019-08-19 Telephone [facility] 1.2.840.114 [id number] Univers 00:00:00 00:00:00 Wondiful A [facility] 350.1.13.10 ity of [place] 4.2.7.2.686 [place]affy as Professio [phone] [address] 2019-08-12 2019-08-16 Inpatient U [facility] [id number] Univers 22:36:00 12:57:00 RHIANNA ity o f [facility] 2019-08-12 2019-08-16 Hospital Diana Romano 1.2.840.114 [id number] Univers 22:36:00 12:57:00 Encounter Rhianna [place] 350.1.13.10 ity of Hospital 4.2.7.2.686 Raffy as [phone] [facility] 090 [place] 2019-08-16 2019-08-16 Outpatient R [facility] [id number] -20 Univers 10:00:00 10:00:00 [id number] ity of [facility] 2019-08-16 2019-08-16 Outpatient R [facility] [id number] Univers 10:00:00 10:00:00 ity of [facility] 2019-08-12 2019-08-12 Telephone Gregory [facility] 1.2.087.101 [id number] Univers 00:00:00 00:00:00 Lily Hawkins 350.1.13.10 it[place] of [place] Profess[place] [phone] [address] 2019-08-09 2019-08-09 Telephone GregoryDiana 1.2.702.529 [id number] Univers 00:00:00 00:00:00 Lily Zhuy 350.1.13.10 i ty of [facility] 4.2.7.2.686 [place]aff[place] as [phone] [address] 2019-08-07 2019-08-07 Telephone GregoryDiana 1.2.358.045 [id number] Univers 00:00:00 00:00:00 Lily Parra 350.1.13.10 i ty of [facility] 4.2.7.2.686 Raffy as [phone] [address] 2019-08-05 2019-08-06 Office [facility] 1.2.840.114 [id number] Univers 10:54:42 21:31:12 Visit Lily Hawkins 350.1.13.10 ity of [place].2.[place] Profess[place] [phone] [address] 2019-08-05 2019-08-05 Outpatient R GREGORY [facility] [id number] Univers 11:20:00 11:20:00 LILY turner o f [facility] 2019-08-05 2019-08-05 Orders Doctor VAISHALI 1.2.840.114 [id number] Univers 00:00:00 00:00:00 Only Unassigned, AIDA 350.1.13.10 ity of [place] [facility] 4.2.7.2.686 Raffy as [phone] [address] 2019-02-04 2019-02-04 Office [facility] 1.2.840.114 [id number] Univers 09:40:44 10:41:11 Visit Lily Hawkins 350.1.13.10 ity of [place] 4[place].2.[place] Profess[place] [phone] Ut dical nal 059 [facility] 2019-02-04 2019-02-04 Orders Doctor VAISHALI 1.2.840.114 [id number] Univers 00:00:00 00:00:00 Only Unassigned, AIDA 350.1.13.10 ity of [place] [facility] 4.2.7.2.686 Raffy as [phone] [address] 2019-01-04 2019-01-04 Office Mark [facility] 1.2.790.253 [id number] [facility] 14:30:15 15:51:35 Visit Anatoly Rodriguez Shruthi 350.1.13.10 i ty of [place] 4[place].2.[place] Profess[place] [phone] [facility] 220 [facility] 2019-01-04 2019-01-04 Orders Doctor VAISHALI 1.2.840.114 [id number] Univers 00:00:00 00:00:00 Only Unassigned, AIDA 350.1.13.10 ity of [place] [facility]OSPITAL 4.2.7.2.686 Raffy as [phone] [address] 2018-12-20 2018-12-20 Orders Doctor VAISHALI 1.2.840.114 [id number] Univers 00:00:00 00:00:00 Only Unassigned, AIDA 350.1.13.10 ity of [place] HOSPITAL 4.2.7.2.686 Raffy as [phone] [address] 2018-12-06 2018-12-06 Orders Doctor VAISHALI 1.2.840.114 [id number] Univers 00:00:00 00:00:00 Only Unassigned, AIDA 350.1.13.10 ity of [place] HOSPITAL 4.2.7.2.686 Raffy as [phone] [address] 2018-06-27 2018-06-27 [facility] [id number] 11:57:00 11:57:00 t [facility] Medicine Outpati ent Clinics 2018-06-15 2018-06-15 [facility] [id number] 16:24:00 16:24:00 [facility] Outpati ent Clinics 2018-06-13 2018-06-13 [facility] [id number] 13:30:00 13:30:00 [facility] Outpati ent Clinics 2017-12-12 2017-12-12 [facility] [id number] 13:22:00 13:22:00 t [facility] Outpati ent Clinics 2017-11-20 2017-11-20 [facility] [id number] 10:30:00 10:30:00 [facility] Outpati ent Clinics 2017-11-02 2017-11-02 [facility] [address] 15:15:00 15:15:00 [facility] [employer] [facility] ent Clinics Results Test Description Test Time Test Comments Results Result Comments Source POCT GLUCOSE (AUTOMATED) 2021-02-12 21:30:54 Test Item Value Reference Range Interpretation Comme nts POCT GLU (test code = 5943060157) 441 mg/dL 70-110 H Lab Interpretation (test code = 34457-5) [facility]2021-[facility]-12 21:30:54 Test Item Value Reference Range Interpretation Comments POCT GLU (test code = 4319361369) 441 mg/dL 70-110 H Lab Interpretation (test code = Abnormal 13430-6) [facility] (NA, K, CL, CO2, GLUCOSE, BUN, CREATININE, CA)2021-02-12 21:22:44 Test Item Value Reference Range Interpretation Comments NA (test code = 128 mmol/L 135-145 L 1255871408) K (test code = 4.3 mmol/L 3.5-5.0 9269905599) CL (test code = 99 mmol/L 98-108 6999723590) CO2 TOTAL (test code = 19 mmol/L 23-31 L 4834526993) AGAP (test code = 2-16 7725257021) BUN (test code = 13 mg/dL 7-23 3845491961) GLUCOSE (test code = 522 mg/dL 70-110 HH 1221124856) CREATININE (test code = 0.62 mg/dL 0.50-1.04 9303618856) CALCIUM (test code = 8.2 mg/dL 8.6-10.6 L 2606628637) eGFR (test code = mL/min/1.73m2 3319260383) NISHA (test code = NISHA) Association of [...] tests). Lab Interpretation Abnormal (test code = 31474-9) [facility] METABOLIC PANEL (NA, K, CL, CO2, GLUCOSE, BUN, CREATININE, CA)2021-02-12 21:22:44 Test Item Value Reference Range Interpretation Comments NA (test code = 128 mmol/L 135-145 L 4852723841) K (test code = 4.3 mmol/L 3.5-5.0 7222536052) CL (test code = 99 mmol/L 98-108 5801589796) CO2 TOTAL (test code = 19 mmol/L 23-31 L 7590729457) AGAP (test code = 2-16 8722541523) BUN (test code = 13 mg/dL 7-23 1967274792) GLUCOSE (test code = 522 mg/dL 70-110 HH 3211724816) CREATININE (test code = 0.62 mg/dL 0.50-1.04 2683509801) CALCIUM (test code = 8.2 mg/dL 8.6-10.6 L 5436914469) eGFR (test code = mL/min/1.73m2 7912626670) NISHA (test code = NISHA) Association of [...] tests). Lab Interpretation Abnormal (test code = 23852-3) [facility] WITH [id number] 20:50:11 Test Item Value Reference Range Interpretation Comments WBC (test code = See_Comment [Automated message] 6690-2) The system [employer] generated this result transmitted ref erence range: 4.30 - 1 1.10 10*3/?L. The re ference range was not u sed to interpret this result as normal/abnor mal. RBC (test code = See_Comment [Automated message] 789-8) The system [employer] generated this result transmitted ref erence range: [...] RDW-SD (test code 40.4 fL 39.0-49.9 = 91478-1) RDW-CV (test code 12.7 % 12.0-15.5 = 788-0) PLT (test code = See_Comment [Automated message] 777-3) The system [employer] generated this result transmitted ref erence range: 166 - 35 8 10*3/?L. The re ference range was not u sed to interpret this result as normal/abnor mal. MPV (test code = 10.3 fL 9.5-12.9 85525-6) NRBC/100 WBC (test See_Comment [Automat ed message] code = 5278855460) The syste [employer] which generated this result transmitted ref erence range: 0.0 - 10 .0 /100 WBCs. The refer ence range was not u sed to interpret this result as normal/abnor mal. NRBC x10^3 (test <0.01 See_Comment [Automated message] code = 6808926197) The syste m which generated this result transmitted ref erence range: 10*3/?L. The reference range was not used to interpr et this result as normal/abnormal . GRAN MAT (NEUT) % 68.0 % (test code = 770-8) IMM GRAN % (test 0.30 % code = 1865188516) LYMPH % (test code 23.0 % = 736-9) MONO % (test code 5.0 % = 5905-5) EOS % (test code = 3.0 % 713-8) BASO % (test code 0.7 % = 706-2) GRAN MAT 6.52 10*3/uL 1.88-7.09 x10^3(ANC) (test code = 8587377948) IMM GRAN x10^3 0.03 10*3/uL 0.00-0.06 (test code = 4072040345) LYMPH x10^3 (test 2.21 10*3/uL 1.32-3.29 code = 731-0) MONO x10^3 (test 0.48 10*3/uL 0.33-0.92 code = 742-7) EOS x10^3 (test 0.29 10*3/uL 0.03-0.39 code = 711-2) BASO x10^3 (test 0.07 10*3/uL 0.01-0.07 code = 704-7) [facility] WITH [id number] 20:50:11 Test Item Value Reference Range Interpretation Comments WBC (test code = See_Comment [Automated message] 6690-2) The system [employer] generated this result transmitted ref erence range: 4.30 - 1 1.10 10*3/?L. The re ference range was not u sed to interpret this result as normal/abnor mal. RBC (test code = See_Comment [Automated message] 789-8) The system [employer] generated this result transmitted ref erence range: [...] RDW-SD (test code 40.4 fL 39.0-49.9 = 71000-7) RDW-CV (test code 12.7 % 12.0-15.5 = 788-0) PLT (test code = See_Comment [Automated message] 777-3) The system whic h generated this result transmitted ref erence range: 166 - 35 8 10*3/?L. The re ference range was not u sed to interpret this result as normal/abnor mal. MPV (test code = 10.3 fL 9.5-12.9 14098-7) NRBC/100 WBC (test See_Comment [Automat ed message] code = 0878294457) The syste m which generated this result transmitted ref erence range: 0.0 - 10 .0 /100 WBCs. The refer ence range was not u sed to interpret this result as normal/abnor mal. NRBC x10^3 (test <0.01 See_Comment [Automated message] code = 6316912620) The syste m which generated this result transmitted ref erence range: 10*3/?L. The reference range was not used to interpr et this result as normal/abnormal . GRAN MAT (NEUT) % 68.0 % (test code = 770-8) IMM GRAN % (test 0.30 % code = 2748743689) LYMPH % (test code 23.0 % = 736-9) MONO % (test code 5.0 % = 5905-5) EOS % (test code = 3.0 % 713-8) BASO % (test code 0.7 % = 706-2) GRAN MAT 6.52 10*3/uL 1.88-7.09 x10^3(ANC) (test code = 7282311319) IMM GRAN x10^3 0.03 10*3/uL 0.00-0.06 (test code = 6611022292) LYMPH x10^3 (test 2.21 10*3/uL 1.32-3.29 code = 731-0) MONO x10^3 (test 0.48 10*3/uL 0.33-0.92 code = 742-7) EOS x10^3 (test 0.29 10*3/uL 0.03-0.39 code = 711-2) BASO x10^3 (test 0.07 10*3/uL 0.01-0.07 code = 704-7) [facility] GLUCOSE (AUTOMATED)2021-02-12 19:42:22 Test Item Value Reference Range Interpretation Comments POCT GLU (test code = 9797891934) 558 mg/dL 70-110 HH Lab Interpretation (test code = Abnormal 68450-8) [facility] GLUCOSE (AUTOMATED)2021-02-12 19:42:22 Test Item Value Reference Range Interpretation Comments POCT GLU (test code = 8824953647) 558 mg/dL 70-110 HH Lab Interpretation (test code = Abnormal 99244-1) [facility] GLUCOSE (AUTOMATED)2021-01-17 18:00:29 Test Item Value Reference Range Interpretation Comments POCT GLU (test code = 7973010807) 327 mg/dL 70-110 H Lab Interpretation (test code = Abnormal 66658-7) [facility] GLUCOSE (AUTOMATED)2021-01-17 13:28:29 Test Item Value Reference Range Interpretation Comments POCT GLU (test code = 9917156123) 374 mg/dL 70-110 H Lab Interpretation (test code = Abnormal 07335-1) [facility] METABOLIC PANEL (NA, K, CL, CO2, GLUCOSE, BUN, CREATININE, CA)2021-01-17 09:28:24 Test Item Value Reference Range Interpretation Comments NA (test code = 132 mmol/L 135-145 L 4827585064) K (test code = 4.5 mmol/L 3.5-5.0 4144525682) CL (test code = 106 mmol/L 98-108 3491417158) CO2 TOTAL (test code = 23 mmol/L 23-31 6179132195) AGAP (test code = 2-16 8454936009) BUN (test code = 19 mg/dL 7-23 1530467133) GLUCOSE (test code = 383 mg/dL 70-110 H 2365128681) CREATININE (test code = 0.71 mg/dL 0.50-1.04 0885262952) CALCIUM (test code = 7.9 mg/dL 8.6-10.6 L 6739485515) eGFR (test code = mL/min/1.73m2 4373973650) NISHA (test code = NISHA) Association of [...] tests). Lab Interpretation Abnormal (test code = 25773-4) [facility] WITH [id number] 09:16:04 Test Item Value Reference Range Interpretation Comments WBC (test code = See_Comment [Automated message] 6690-2) The system [employer] generated this result transmitted ref erence range: 4.30 - 1 1.10 10*3/?L. The re ference range was not u sed to interpret this result as normal/abnor mal. RBC (test code = See_Comment [Automated message] 789-8) The system [employer] generated this result transmitted ref erence range: [...] RDW-SD (test code 39.3 fL 39.0-49.9 = 64080-9) RDW-CV (test code 12.4 % 12.0-15.5 = 788-0) PLT (test code = See_Comment [Automated message] 777-3) The system [employer] generated this result transmitted ref erence range: 166 - 35 8 10*3/?L. The re ference range was not u sed to interpret this result as normal/abnor mal. MPV (test code = 11.0 fL 9.5-12.9 94537-6) NRBC/100 WBC (test See_Comment [Automat ed message] code = 3736080376) The syste [employer] which generated this result transmitted ref erence range: 0.0 - 10 .0 /100 WBCs. The refer ence range was not u sed to interpret this result as normal/abnor mal. NRBC x10^3 (test <0.01 See_Comment [Automated message] code = 4275415765) The syste m which generated this result transmitted ref erence range: 10*3/?L. The reference range was not used to interpr et this result as normal/abnormal . GRAN MAT (NEUT) % 52.9 % (test code = 770-8) IMM GRAN % (test 0.40 % code = 1018441569) LYMPH % (test code 35.0 % = 736-9) MONO % (test code 6.7 % = 5905-5) EOS % (test code = 4.0 % 713-8) BASO % (test code 1.0 % = 706-2) GRAN MAT 3.88 10*3/uL 1.88-7.09 x10^3(ANC) (test code = 3082986460) IMM GRAN x10^3 0.03 10*3/uL 0.00-0.06 (test code = 7854129321) LYMPH x10^3 (test 2.56 10*3/uL 1.32-3.29 code = 731-0) MONO x10^3 (test 0.49 10*3/uL 0.33-0.92 code = 742-7) EOS x10^3 (test 0.29 10*3/uL 0.03-0.39 code = 711-2) BASO x10^3 (test 0.07 10*3/uL 0.01-0.07 code = 704-7) [facility] GLUCOSE (AUTOMATED)2021-01-16 22:25:02 Test Item Value Reference Range Interpretation Comments POCT GLU (test code = 3369906890) 301 mg/dL 70-110 H Lab Interpretation (test code = Abnormal 17364-7) [facility] GLUCOSE (AUTOMATED)2021-01-16 21:22:23 Test Item Value Reference Range Interpretation Comments POCT GLU (test code = 8282557752) 228 mg/dL 70-110 H Lab Interpretation (test code = Abnormal 94707-6) [facility] [id number] 19:28:10 Test Item Value Reference Range Interpretation Comments dLDL Chol (test code = 41815-0) 51 mg/dL <130 Lab Interpretation (test code = Normal 24431-4) [facility] GLUCOSE (AUTOMATED)2021-01-16 13:20:02 Test Item Value Reference Range Interpretation Comments POCT GLU (test code = 5997203891) 282 mg/dL 70-110 H Lab Interpretation (test code = Abnormal 79084-6) [facility] (Total Cholesterol, Triglycerides, HDL) - [id number] 10:51:04 Test Item Value Reference Range Interpretation Comments CHOL (test code = 123 mg/dL 120-200 6312509770) HDL (test code = 24 mg/dL >50 L 1618243945) HDLC RATIO (test code = See_Comment H [Au tomated message] 5263401334) The system [employer] generated this result transmitted ref erence range: <=4.5. T he reference range was not used to int erpret this result as normal/abnormal . TRIG (test code = 437 mg/dL 30-170 H 5088951774) LDL CHOL (test code = Unable to calculate 57214-9) LDL due to elev ated triglyceride le sweetie greater than 40 0 mg/dL. VLDL (test code = 87 mg/dL 5-60 H 0617506309) Lab Interpretation Abnormal (test code = 51500-1) [facility] Metabolic Panel (NA, K, CL, CO2, GLUCOSE, BUN, CREATININE, CA)2021-01-16 10:50:48 Test Item Value Reference Range Interpretation Comments NA (test code = 134 mmol/L 135-145 L 0804316505) K (test code = 2.7 mmol/L 3.5-5.0 LL 7652948983) CL (test code = 101 mmol/L 98-108 9156920904) CO2 TOTAL (test code = 24 mmol/L 23-31 0152340688) AGAP (test code = 2-16 7417947976) BUN (test code = 15 mg/dL 7-23 0275552201) GLUCOSE (test code = 160 mg/dL 70-110 H 5191153440) CREATININE (test code = 0.69 mg/dL 0.50-1.04 9391858226) CALCIUM (test code = 8.5 mg/dL 8.6-10.6 L 9882298638) eGFR (test code = mL/min/1.73m2 6645599470) NISHA (test code = NISHA) Association of [...] tests). Lab Interpretation Abnormal (test code = 89557-9) [facility] [id number] 10:35:20 Test Item Value Reference Range Interpretation Comments MAGNESIUM (test code = 0602563784) 1.5 mg/dL 1.7-2.4 L Lab Interpretation (test code = Abnormal 83577-4) [facility] with [id number] 10:03:39 Test Item Value Reference Range Interpretation Comments WBC (test code = See_Comment [Automated 8350-2) message] The sy stem which generated this result transmitted reference range : 4.30 - 11.10 10*3/?L. The reference range was not used to interpret this result as normal/abnormal . RBC (test code = See_Comment [Automated 317-5) message] The sy stem which generated this [...] (test code = 37.2 fL 39.0-49.9 L 05110-2) RDW-CV (test code = 12.1 % 12.0-15.5 788-0) PLT (test code = See_Comment [Automated 777-3) message] The sy stem which generated this result transmitted reference range : 166 - 358 10*3/ ?L. The reference r chelsie was not used to interpret this result as normal/abnormal . MPV (test code = 10.9 fL 9.5-12.9 59324-9) NRBC/100 WBC (test See_Comment [Automat ed code = 2459260799) message] The system which generated this result transmitted reference range : 0.0 - 10.0 /100 WBCs. The refer ence range was not u sed to interpret th is result as normal/abnormal . NRBC x10^3 (test code <0.01 See_Comment [Auto mated = 3208643172) message] The s ystem which generated this result transmitted reference range : 10*3/?L. The reference range was not used to interpret this result as normal/abnormal . GRAN MAT (NEUT) % 37.0 % (test code = 770-8) IMM GRAN % (test code 0.30 % = [id number]) LYMPH % (test code = 47.8 % 736-9) MONO % (test code = 8.6 % 5905-5) EOS % (test code = 5.0 % 713-8) BASO % (test code = 1.3 % 706-2) GRAN MAT x10^3(ANC) 2.37 10*3/uL 1.88-7.09 (test code = [id number]) IMM GRAN x10^3 (test <0.03 0.00-0.06 code = [id number]) LYMPH x10^3 (test code 3.06 10*3/uL 1.32-3.29 = 731-0) MONO x10^3 (test code 0.55 10*3/uL 0.33-0.92 = 742-7) EOS x10^3 (test code = 0.32 10*3/uL 0.03-0.39 711-2) BASO x10^3 (test code 0.08 10*3/uL 0.01-0.07 H = 704-7) Lab Interpretation Abnormal (test code = 13235-4) [facility] GLUCOSE (AUTOMATED)2021-01-16 08:30:27 Test Item Value Reference Range Interpretation Comments POCT GLU (test code = [id number]) 171 mg/dL 70-110 H Lab Interpretation (test code = Abnormal 26127-3) [facility] GLUCOSE (AUTOMATED)2021-01-16 03:57:09 Test Item Value Reference Range Interpretation Comments POCT GLU (test code = [id number]) 407 mg/dL 70-110 H Lab Interpretation (test code = Abnormal 91039-8) [facility] [id number] 02:31:30COVID DMT InterpretationInterpretation/Recommendations:Molecular NAAT Tests for Active [...] 1-2 weeks prior to antibody testing, any yoizfehbNDEB-RkD-2 IgG antibody result is likely due to [...] COVID-19 testing the patient has had at [facility], including molecular NAAT testing (more commonly known as PCR testing and Rapid ID Now testing) and antibody testing. It does not take into account any testing that a patient has had outside of the [facility] medical record. [facility] LABORATORY SERVICESCOVID DlxyhxsWXOH-HwX-0 Rapid ID NOW (no units) ? ? Date ? Value ? 01/15/2021 ? Not Detected ? ? ? 11/30/2020 ? Not Detected ? ? ? 09/05/2020 ? Not Detected ? [facility]ORATORY SERVICESUnNacogdoches Medical CenterUrinalysis2021-08-21 02:28:46 Test Item Value Reference Range Interpretation Comments APPEARANCE (test code = Hazy Clear A 7691381592) COLOR (test code = Yellow Yellow 1633860047) PH (test code = 4.8-8.0 5212594810) SP GRAVITY (test code = 1.003-1.030 4466646176) GLU U QUAL (test code = 500 mg/dL Normal A 3187954334) BLOOD (test code = 1+ Negative A 6857348644) KETONES (test code = Negative Negative 1030329924) PROTEIN (test code = Negative Negative 2887-8) UROBILIN (test code = Normal Normal 4019582650) BILIRUBIN (test code = Negative Negative 8981565990) NITRITE (test code = Negative Negative 8788982502) LEUK JOSEFA (test code = 500/uL Negative A 9953750485) RBC/HPF (test code = See_Comment H [Autom ated message] 3343186841) The system [employer] generated this result transmit anthony reference range : 0 - 3 HPF. The refe rence range was not u sed to interpret th is result as normal/abnormal . WBC/HPF (test code = See_Comment H [Autom ated message] 5937876093) The system [employer] generated this result transmit anthony reference range : 0 - 5 HPF. The refe rence range was not u sed to interpret th is result as normal/abnormal . BACTERIA (test code = Few Negative A 0990473275) MUCOUS (test code = Slight Negative LPF A 3088788359) SQ EPITH (test code = HPF 2088353188) Lab Interpretation (test Abnormal code = 19331-3) [facility] 01:20:09 Test Item Value Reference Range Interpretation Comments POCT GLU (test code = 3013496199) 525 mg/dL 70-110 HH Lab Interpretation (test code = Abnormal 71758-8) [facility] HospitalThyroid Stimulating Hormone (TSH)2021-01-16 00:51:02 Test Item Value Reference Range Interpretation Comments TSH (test code = See_Comment [Automated message] 0999275841) The system [employer] generated this result transmitted ref erence range: 0.45 - 4 .70 mIU/L. The refe rence range was not u sed to interpret this result as normal/abnor mal. Lab Interpretation (test Normal code = 15839-7) [facility] HospitalTroponin [id number] 00:32:40 Test Item Value Reference Interpretation Comments Range TROPONIN I (test 0.006 ng/mL See_Comment [Automated code = 3914856831) message] The system which generated this result [...] biotin. Lab Interpretation Normal (test code = 62391-4) [facility]HEPAT[facility]CTION PANEL (22675) (ALB,T.PRO,BILI T,BU/BC,ALT,AST,ALK PHOS)2021-01-16 00:20:20 Test Item Value Reference Range Interpretation Comments TOTAL BILI (test code = 0143833049) 0.8 mg/dL 0.1-1.1 BILI UNCON (test code = 1460785864) 0.5 mg/dL 0.1-1.1 BILI CONJ (test code = 8381097834) 0.0 mg/dL 0.0-0.3 T PROTEIN (test code = 6794989268) 7.6 g/dL 6.3-8.2 ALBUMIN (test code = 5658201483) 4.0 g/dL 3.5-5.0 ALK PHOS (test code = 2365202433) 159 U/L 34-122 H ALTv (test code = 1742-6) 18 U/L 5-35 AST(SGOT) (test code = 0856629241) 27 U/L 13-40 Lab Interpretation (test code = Abnormal 17394-7) [facility] HospitalPhosphorus [id number] 00:19:59 Test Item Value Reference Range Interpretation Comments PHOSPHORUS (test code = 4597358314) 3.4 mg/dL 2.5-5.0 Lab Interpretation (test code = Normal 07926-5) [facility] HospitalGlycosylated Hemoglobin (A1C)2021-01-16 00:15:56 Test Item Value Reference Range Interpretation Comments HGB A1C (test code = >14.0 4.0-5.7 H 4548-4) NISHA (test code = NISHA) Reference RangesNormal: <5.7%Prediabetes: 5.7 - 6.4%Diabetes: > 6.5% Lab Interpretation (test Abnormal code = 24163-9) [facility] GLUCOSE (AUTOMATED)2021-01-15 22:36:13 Test Item Value Reference Range Interpretation Comments POCT GLU (test code = 0438298030) 565 mg/dL 70-110 HH Lab Interpretation (test code = Abnormal 75854-2) [facility]COVID[facility] (ID NOW RAPID TESTING)2021-01-15 21:10:19 Test Item Value Reference Range Interpretation Comments SARS-CoV-2 Rapid ID NOW Not Detected Not Detected (test code = 86874-8) NISHA (test code = NISHA) ID NOW COVID-19 Assay is an isothermal nucleic acid amplification test intended for the qualitative detection of nucleic acid from SARS-CoV-2 viral RNA in nasopharyngeal ([employer]CH [employer]OVEL OPERATOR) specimens. It is used under Emergency Use [...] indicated. Lab Interpretation Normal (test code = 60809-2) [facility] HEMOGLOBIN A1C [id number] 16:42:00 Test Item Value Reference Range Interpretation Comments POCT HBA1C (test code = 4548-4) 14 % 4-6 A Lab Interpretation (test code = Abnormal 76269-0) [facility] HEMOGLOBIN A1C [id number] 16:42:00 Test Item Value Reference Range Interpretation Comments POCT HBA1C (test code = 4548-4) 14 % 4-6 A Lab Interpretation (test code = Abnormal 46077-7) [facility] GLUCOSE (AUTOMATED)2020-12-01 17:40:09 Test Item Value Reference Range Interpretation Comments POCT GLU (test code = 350 mg/dL 70-110 H Notifi ed Provider [id number]) Lab Interpretation (test Abnormal code = 79224-3) [facility]2020-12-01 13:22:36 Test Item Value Reference Range Interpretation Comments POCT GLU (test code = 4037534661) 215 mg/dL 70-110 H Lab Interpretation (test code = Abnormal 58574-4) [facility] Metabolic Panel (NA, K, CL, CO2, GLUCOSE, BUN, CREATININE, CA)2020-12-01 11:30:25 Test Item Value Reference Range Interpretation Comments NA (test code = 135 mmol/L 135-145 5296173414) K (test code = 4.0 mmol/L 3.5-5.0 9939203854) CL (test code = 104 mmol/L 98-108 6463789486) CO2 TOTAL (test code = 21 mmol/L 23-31 L 3894748055) AGAP (test code = 2-16 7300537103) BUN (test code = 13 mg/dL 7-23 2265951377) GLUCOSE (test code = 388 mg/dL 70-110 H 6770900970) CREATININE (test code = 0.69 mg/dL 0.50-1.04 9259802449) CALCIUM (test code = 8.0 mg/dL 8.6-10.6 L 8648135548) eGFR (test code = mL/min/1.73m2 0938159082) NISHA (test code = NISHA) Association of [...] tests). Lab Interpretation Abnormal (test code = 02471-7) [facility] HospitalMagnesium [id number] 11:30:25 Test Item Value Reference Range Interpretation Comments MAGNESIUM (test code = 6272208466) 1.6 mg/dL 1.7-2.4 L Lab Interpretation (test code = Abnormal 21503-5) [facility] with [id number] 10:38:41 Test Item Value Reference Range Interpretation Comments WBC (test code = See_Comment [Automated 0690-2) message] The sy stem which generated this [...] (test code = 38.6 fL 39.0-49.9 L 95945-7) RDW-CV (test code = 12.1 % 12.0-15.5 788-0) PLT (test code = See_Comment [Automated 857-3) message] The sy stem which generated this result transmitted reference range : 166 - 358 10*3/ ?L. The reference r chelsie was not used to interpret this result as normal/abnormal . MPV (test code = 10.6 fL 9.5-12.9 34247-1) NRBC/100 WBC (test See_Comment [Automat ed code = 4000275661) message] The system which generated this result transmitted reference range : 0.0 - 10.0 /100 WBCs. The refer ence range was not u sed to interpret th is result as normal/abnormal . NRBC x10^3 (test code <0.01 See_Comment [Auto mated = 7073495938) message] The s ystem which generated this result transmitted reference range : 10*3/?L. The reference range was not used to interpret this result as normal/abnormal . GRAN MAT (NEUT) % 73.2 % (test code = 770-8) IMM GRAN % (test code 0.40 % = 0447813458) LYMPH % (test code = 18.4 % 736-9) MONO % (test code = 5.6 % 5905-5) EOS % (test code = 2.0 % 713-8) BASO % (test code = 0.4 % 706-2) GRAN MAT x10^3(ANC) 7.52 10*3/uL 1.88-7.09 H (test code = 8854897313) IMM GRAN x10^3 (test 0.04 10*3/uL 0.00-0.06 code = 0328030084) LYMPH x10^3 (test code 1.89 10*3/uL 1.32-3.29 = 731-0) MONO x10^3 (test code 0.58 10*3/uL 0.33-0.92 = 742-7) EOS x10^3 (test code = 0.21 10*3/uL 0.03-0.39 711-2) BASO x10^3 (test code 0.04 10*3/uL 0.01-0.07 = 704-7) Lab Interpretation Abnormal (test code = 61503-6) [facility] GLUCOSE (AUTOMATED)2020-12-01 02:30:55 Test Item Value Reference Range Interpretation Comments POCT GLU (test code = 7055799728) 347 mg/dL 70-110 H Lab Interpretation (test code = Abnormal 24194-1) [facility]ACTIV[facility] PARTIAL THRMPLAS [id number] 01:05:55 Test Item Value Reference Range Interpretation Comments APTT Patient (test code See_Comment H [Au tomated message] = 3173-2) The system [employer] generated this result transmitted ref erence range: 26 - 36 Seconds. The reference range was not used to int erpret this result as normal/abnormal . Lab Interpretation (test Abnormal code = 95042-0) [facility]LAB ONLY COVID [id number] 22:44:24COVID DMT InterpretationInterpretation/Recommendations:Molecular NAAT Tests for Active [...] COVID-19 testing the patient has had at [facility], including molecular NAAT testing (more commonly known as PCR testing and Rapid ID Now testing) and antibody testing. It does not take into account any testing that a patient has had outside of the [facility] medical record. [facility] LABORATORY SERVICESCOVID ResultsSARS- CoV-2 Rapid ID NOW (no units) ? ? Date ? Value ? 11/30/2020 ? Not Detected ? ? ? 09/05/2020 ? Not Detected ? [facility]ATORY SERVICESUnNacogdoches [facility] Center POCT ACT LOW [id number] 22:26:21 Test Item Value Reference Range Interpretation Comments ACTLR (test code = See_Comment H [Automat ed message] 3459194527) The system [employer] generated this result transmitted ref erence range: 89 - 169 Seconds. The reference range was not used to int erpret this result as normal/abnormal . Lab Interpretation (test Abnormal code = 51969-6) [facility]PO[facility]OW [id number] 22:03:24 Test Item Value Reference Range Interpretation Comments ACTLR (test code = See_Comment H [Automat ed message] 7988364553) The system [employer] generated this result transmitted ref erence range: 89 - 169 Seconds. The reference range was not used to int erpret this result as normal/abnormal . Lab Interpretation (test Abnormal code = 19637-3) [facility]BASI METABOLIC PANEL (NA, K, CL, CO2, GLUCOSE, BUN, CREATININE, CA)2020-11-30 16:00:24 Test Item Value Reference Range Interpretation Comments NA (test code = 130 mmol/L 135-145 L 8688644162) K (test code = 3.8 mmol/L 3.5-5.0 9086942737) CL (test code = 98 mmol/L 98-108 3975139436) CO2 TOTAL (test code = 25 mmol/L 23-31 0439587454) AGAP (test code = 2-16 5928220671) BUN (test code = 12 mg/dL 7- 4871414165) GLUCOSE (test code = 624 mg/dL 70-110 8915355494) CREATININE (test code = 0.63 mg/dL 0.50-1.04 0375991822) CALCIUM (test code = 8.2 mg/dL 8.6-10.6 L 6812396877) eGFR (test code = mL/min/1.73m2 5940718144) NISHA (test code = NISHA) Association of [...] tests). Lab Interpretation Abnormal (test code = 65473-4) [facility]APID [facility]ING)2020-11-30 13:55:18 Test Item Value Reference Range Interpretation Comments SARS-CoV-2 Rapid ID NOW Not Detected Not Detected (test code = 25953-4) NISHA (test code = NISHA) ID NOW COVID-19 Assay is an isothermal nucleic acid amplification test intended for the qualitative detection of nucleic acid from SARS-CoV-2 viral RNA in nasopharyngeal ([employer]ENCH SHOVEL OPERATOR) specimens. It is used under Emergency Use [...] indicated. Lab Interpretation Normal (test code = 62595-6) [facility] GLUCOSE(AGE >30DAYS)2020-10-07 19:39:00 Test Item Value Reference Range Interpretation Comments POCT Glu (age>30days) (test code = 189 mg/dL 70-110 A 3342) Lab Interpretation (test code = Abnormal 31628-1) [facility] GLUCOSE(AGE >30DAYS)2020-10-07 19:39:00 Test Item Value Reference Range Interpretation Comments POCT Glu (age>30days) (test code = 189 mg/dL 70-110 A 3342) Lab Interpretation (test code = Abnormal 39589-2) [facility] GLUCOSE (AUTOMATED)2020-09-07 22:31:04 Test Item Value Reference Range Interpretation Comments POCT GLU (test code = 6371310996) 72 mg/dL 70-110 Lab Interpretation (test code = Normal 47853-2) [facility] GLUCOSE (AUTOMATED)2020-09-07 21:54:57 Test Item Value Reference Range Interpretation Comments POCT GLU (test code = 2886913962) 88 mg/dL 70-110 Lab Interpretation (test code = Normal 41885-9) [facility] HospitalVITAMIN D, [id number] 21:07:23 Test Item Value Reference Range Interpretation Comments VIT D 25OH (test code = <13 25-80 L 88208-8) NISHA (test code = NISHA) Deficiency: <20 ng/mLInsufficiency: 20-24 ng/mLOptimal: 25-80 ng/mL Lab Interpretation (test Abnormal code = 49961-2) [facility] GLUCOSE (AUTOMATED)2020-09-07 20:17:01 Test Item Value Reference Range Interpretation Comments POCT GLU (test code = 0070595020) 47 mg/dL 70-110 LL Lab Interpretation (test code = Abnormal 18787-7) [facility] GLUCOSE (AUTOMATED)2020-09-07 17:19:43 Test Item Value Reference Range Interpretation Comments POCT GLU (test code = 6672432234) 46 mg/dL 70-110 LL Lab Interpretation (test code = Abnormal 55035-5) [facility] GLUCOSE (AUTOMATED)2020-09-07 17:19:42 Test Item Value Reference Range Interpretation Comments POCT GLU (test code = 8173988180) 183 mg/dL 70-110 H Lab Interpretation (test code = Abnormal 01724-7) [facility] WITH [id number] 11:16:01 Test Item Value Reference Range Interpretation [...] RDW-SD (test code = 42.8 fL 39.0-49.9 89168-8) RDW-CV (test code = 13.1 % 12.0-15.5 788-0) PLT (test code = See_Comment [Automated 777-3) message] The sy stem which generated this result transmitted reference range : 166 - 358 10*3/ ?L. The reference r chelsie was not used to interpret this result as normal/abnormal . MPV (test code = 11.4 fL 9.5-12.9 39359-2) IPF % (test code = 3.7 % 1.3-7.7 Platelet count 9806086680) measured by fluorescence method. NRBC/100 WBC (test See_Comment [Automat ed code = 2144078230) message] The system which generated this result transmitted reference range : 0.0 - 10.0 /100 WBCs. The refer ence range was not u sed to interpret th is result as normal/abnormal . NRBC x10^3 (test code <0.01 See_Comment [Auto mated = 6743058447) message] The s ystem which generated this result transmitted reference range : 10*3/?L. The reference range was not used to interpret this result as normal/abnormal . GRAN MAT (NEUT) % 82.6 % (test code = 770-8) IMM GRAN % (test code 0.50 % = 8010961706) LYMPH % (test code = 8.8 % 736-9) MONO % (test code = 6.3 % 5905-5) EOS % (test code = 1.6 % 713-8) BASO % (test code = 0.2 % 706-2) GRAN MAT x10^3(ANC) 11.20 10*3/uL 1.88-7.09 H (test code = 6731948885) IMM GRAN x10^3 (test 0.07 10*3/uL 0.00-0.06 H code = 5622902395) LYMPH x10^3 (test 1.19 10*3/uL 1.32-3.29 L code = 731-0) MONO x10^3 (test code 0.85 10*3/uL 0.33-0.92 = 742-7) EOS x10^3 (test code 0.22 10*3/uL 0.03-0.39 = 711-2) BASO x10^3 (test code 0.03 10*3/uL 0.01-0.07 = 704-7) Lab Interpretation Abnormal (test code = 74523-2) [facility]2020-09-07 11:07:40 Test Item Value Reference Range Interpretation Comments POCT GLU (test code = 7930910374) 215 mg/dL 70-110 H Lab Interpretation (test code = Abnormal 01124-0) [facility]. METABOLIC PANEL (29963)2020-09-07 10:56:53 Test Item Value Reference Range Interpretation Comments NA (test code = 137 mmol/L 135-145 6332870538) K (test code = 4.6 mmol/L 3.5-5.0 0789197493) CL (test code = 109 mmol/L 98-108 H 8774143255) CO2 TOTAL (test code = 22 mmol/L 23-31 L 9566415214) AGAP (test code = 2-16 3391119379) BUN (test code = 8 mg/dL 7-23 8652153286) GLUCOSE (test code = 177 mg/dL 70-110 H 9574914652) CREATININE (test code = 0.62 mg/dL 0.50-1.04 6411283285) TOTAL BILI (test code = 0.3 mg/dL 0.1-1.1 8728508160) CALCIUM (test code = 7.9 mg/dL 8.6-10.6 L 7553404986) T PROTEIN (test code = 5.1 g/dL 6.3-8.2 L 7568638008) ALBUMIN (test code = 2.7 g/dL 3.5-5.0 L 2886638463) ALK PHOS (test code = 73 U/L 34-122 0865823417) ALTv (test code = 14 U/L 5-35 1742-6) AST(SGOT) (test code = 23 U/L 13-40 7598190717) eGFR (test code = mL/min/1.73m2 3081544186) NISHA (test code = NISHA) Association of [...] tests). Lab Interpretation Abnormal (test code = 88488-6) [facility] HospitalCORTISOL STIMULATION 30 [id number] 06:01:46 Test Item Value Reference Range Interpretation Comments ISIDORO 30 (test code 17.8 ug/dL = 8587070790) NISHA (test code = Normal peak serum cortisol NISHA) is greater than 20 ug/dL 30-60 minutes after 25 units of Cosyntropin IV. Biotin has been reported to cause a positive bias, interpret results relative to patient's use of biotin. [facility] BranchCORTISOL STIMULATION 0 [id number] 05:52:48 Test Item Value Reference Range Interpretation Comments ISIDORO 0 (test code = 15.7 ug/dL 4.5-23.0 0334860904) NISHA (test code = NISHA) Biotin has been reported to cause a positive bias, interpret results relative to patient's use of biotin. Lab Interpretation (test Normal code = 98930-3) [facility] BranchCORT[facility] ST[facility] 60 [id number] 05:51:28 Test Item Value Reference Range Interpretation Comments ISIDORO 60 (test code 16.6 ug/dL = 6216019171) NISHA (test code = Normal peak serum cortisol NISHA) is greater than 20 ug/dL 30-60 minutes after 25 units of Cosyntropin IV. Biotin has been reported to cause a positive bias, interpret results relative to patient's use of biotin. [facility] GLUCOSE (AUTOMATED)2020-09-06 21:06:52 Test Item Value Reference Range Interpretation Comments POCT GLU (test code = 1635253183) 73 mg/dL 70-110 Lab Interpretation (test code = Normal 65641-3) [facility] GLUCOSE (AUTOMATED)2020-09-06 20:00:38 Test Item Value Reference Range Interpretation Comments POCT GLU (test code = 7099981708) 38 mg/dL 70-110 LL Lab Interpretation (test code = Abnormal 03490-7) [facility] HospitalCORT[facility]OL [id number] 18:39:49 Test Item Value Reference Range Interpretation Comments ISIDORO AM (test code = 1.6 ug/dL 4.5-23.0 L 2119160618) NISHA (test code = NISHA) Biotin has been reported to cause a positive bias, interpret results relative to patient's use of biotin. Lab Interpretation (test Abnormal code = 14604-0) [facility] GLUCOSE (AUTOMATED)2020-09-06 16:42:57 Test Item Value Reference Range Interpretation Comments POCT GLU (test code = 8057367824) 120 mg/dL 70-110 H Lab Interpretation (test code = Abnormal 47017-1) [facility] GLUCOSE (AUTOMATED)2020-09-06 12:48:51 Test Item Value Reference Range Interpretation Comments POCT GLU (test code = 8895061928) 217 mg/dL 70-110 H Lab Interpretation (test code = Abnormal 61379-0) [facility] HospitalN-TERMINAL [id number] 11:44:45 Test Item Value Reference Range Interpretation Comments NT-proBNP (test code 423 pg/mL See_Comment H [Autom ated = 3124998370) message] The system which generated this result transmitted reference range : <=125. The reference range was not used to interpret this result as normal/abnormal . NISHA (test code = NISHA) Biotin has been reported to cause a negative bias, interpret results relative to patient's use of biotin. Lab Interpretation Abnormal (test code = 60906-5) [facility]UM2021-[facility]-11 11:36:41 Test Item Value Reference Range Interpretation Comments MAGNESIUM (test code = 1212333775) 1.7 mg/dL 1.7-2.4 Lab Interpretation (test code = Normal 32059-1) [facility]COMP. METABOLIC PANEL (51147)2020-09-06 11:36:21 Test Item Value Reference Range Interpretation Comments NA (test code = 138 mmol/L 135-145 2855252169) K (test code = 4.1 mmol/L 3.5-5.0 7412438622) CL (test code = 110 mmol/L 98-108 H 4200929713) CO2 TOTAL (test code = 25 mmol/L 23-31 0415120189) AGAP (test code = 2-16 3828635857) BUN (test code = 9 mg/dL 7-23 5598687697) GLUCOSE (test code = 196 mg/dL 70-110 H 0365505969) CREATININE (test code = 0.78 mg/dL 0.50-1.04 6090071751) TOTAL BILI (test code = 0.4 mg/dL 0.1-1.6 3687324180) CALCIUM (test code = 7.9 mg/dL 8.6-10.6 L 2748582909) T PROTEIN (test code = 5.0 g/dL 6.3-8.2 L 5545211632) ALBUMIN (test code = 2.6 g/dL 3.5-5.0 L 0516667780) ALK PHOS (test code = 65 U/L 34-122 2138903662) ALTv (test code = 13 U/L 5-35 1742-6) AST(SGOT) (test code = 24 U/L 13-40 2833535092) eGFR (test code = mL/min/1.73m2 0557878786) NISHA (test code = NISHA) Association of [...] tests). Lab Interpretation Abnormal (test code = 67703-2) [facility]PHOSPH[facility]US2021-[facility]-11 11:36:20 Test Item Value Reference Range Interpretation Comments PHOSPHORUS (test code = 4355562770) 4.3 mg/dL 2.5-5.0 Lab Interpretation (test code = Normal 60706-7) [facility] WITH [id number] 11:26:03 Test Item Value Reference Range Interpretation Comments WBC (test code = See_Comment [Automated 4678-2) message] The sy stem which generated this result transmitted reference range : 4.30 - 11.10 10*3/?L. The reference range was not used to interpret this result as normal/abnormal . RBC (test code = See_Comment L [Automated 417-5) message] The sy stem which generated this [...] RDW-SD (test code = 42.7 fL 39.0-49.9 32048-9) RDW-CV (test code = 13.2 % 12.0-15.5 788-0) PLT (test code = See_Comment [Automated 777-3) message] The sy stem which generated this result transmitted reference range : 166 - 358 10*3/ ?L. The reference r chelsie was not used to interpret this result as normal/abnormal . MPV (test code = 10.5 fL 9.5-12.9 34962-4) NRBC/100 WBC (test See_Comment [Automat ed code = 1670106676) message] The system which generated this result transmitted reference range : 0.0 - 10.0 /100 WBCs. The refer ence range was not u sed to interpret th is result as normal/abnormal . NRBC x10^3 (test code <0.01 See_Comment [Auto mated = 2850612964) message] The s ystem which generated this result transmitted reference range : 10*3/?L. The reference range was not used to interpret this result as normal/abnormal . GRAN MAT (NEUT) % 61.4 % (test code = 770-8) IMM GRAN % (test code 0.40 % = 5828439987) LYMPH % (test code = 26.8 % 736-9) MONO % (test code = 7.3 % 5905-5) EOS % (test code = 3.6 % 713-8) BASO % (test code = 0.5 % 706-2) GRAN MAT x10^3(ANC) 4.65 10*3/uL 1.88-7.09 (test code = 5529716558) IMM GRAN x10^3 (test 0.03 10*3/uL 0.00-0.06 code = 2356072452) LYMPH x10^3 (test code 2.03 10*3/uL 1.32-3.29 = 731-0) MONO x10^3 (test code 0.55 10*3/uL 0.33-0.92 = 742-7) EOS x10^3 (test code = 0.27 10*3/uL 0.03-0.39 711-2) BASO x10^3 (test code 0.04 10*3/uL 0.01-0.07 = 704-7) Lab Interpretation Abnormal (test code = 63076-7) [facility]2020-[facility]-06 09:31:41 Test Item Value Reference Range Interpretation Comments POCT GLU (test code = 2421067708) 119 mg/dL 70-110 H Lab Interpretation (test code = Abnormal 15663-9) [facility] HospitalSEDIMENTATION [id number] 02:23:15 Test Item Value Reference Range Interpretation Comments ESR (test code = See_Comment H [Automated message] 2103956288) The system [employer] generated this result transmitted ref erence range: 0 - 20 m m/HR. The reference r chelsie was not used to interpret this result as normal/abnor mal. Lab Interpretation (test Abnormal code = 25751-5) [id number] 01:26:18 Test Item Value Reference Range Interpretation Comments TROPONIN I (test 0.004 ng/mL See_Comment [Automated code = 9343590799) message] The system which generated this result [...] ? Lab Interpretation Normal (test code = 66154-5) [facility] GLUCOSE (AUTOMATED)2020-09-05 21:59:05 Test Item Value Reference Range Interpretation Comments POCT GLU (test code = 2801065203) 119 mg/dL 70-110 H Lab Interpretation (test code = Abnormal 21464-0) [facility] GLUCOSE (AUTOMATED)2020-09-05 20:48:26 Test Item Value Reference Range Interpretation Comments POCT GLU (test code = 9622386667) 237 mg/dL 70-110 H Lab Interpretation (test code = Abnormal 38974-9) [facility] GLUCOSE (AUTOMATED)2020-09-05 20:48:26 Test Item Value Reference Range Interpretation Comments POCT GLU (test code = 6245719915) 208 mg/dL 70-110 H Lab Interpretation (test code = Abnormal 04330-8) [facility] (45040)(TOTAL CHOLESTEROL, TRIGLYCERIDES, HDL)2020-09-05 20:09:59 Test Item Value Reference Range Interpretation Comments CHOL (test code = 175 mg/dL 120-200 8740624897) HDL (test code = 29 mg/dL >50 L 4526346774) HDLC RATIO (test code = See_Comment H [Au tomated message] 1385680034) The system [employer] generated this result transmit anthony reference range : <=4.5. The refe rence range was not u sed to interpret th is result as normal/abnormal . TRIG (test code = 359 mg/dL 30-170 H 9557911702) LDL CHOL (test code = 74 mg/dL See_Comment [Auto mated message] 20249-0) The system [employer] generated this result transmit anthony reference range : <=160. The refe rence range was not u sed to interpret th is result as normal/abnormal . VLDL (test code = 72 mg/dL 5-60 H 6742690173) Lab Interpretation (test Abnormal code = 80627-4) [facility]12, [id number] 19:54:18 Test Item Value Reference Range Interpretation Comments VIT B12 (test code = 589 pg/mL 240-930 6907768396) NISHA (test code = NISHA) Biotin has been reported to cause a positive bias, interpret results relative to patient's use of biotin. Lab Interpretation (test Normal code = 60647-9) [facility]IN2021-[facility]-10 16:28:13 Test Item Value Reference Range Interpretation Comments Procalcitonin (test 0.02 ng/mL <0.07 code = 4807537556) NISHA (test code = NISHA) INTERPRETATION OF [...] lung abscess/empyema. For further information please refer to:[email or web address] Lab Interpretation Normal (test code = 98542-4) [facility]GLYCOSYLATED HEMOGLOBIN (A1C)2020-09-05 14:17:09 Test Item Value Reference Range Interpretation Comments HGB A1C (test code = >14.0 4.0-6.0 H 4548-4) NISHA (test code = NISHA) %A1C (NGSP) Interpretation (ADA)4.8-5.6 ? ? Normal or (Non-Diabetic Range)5.7-6.4 ? ? Increased Risk (Pre-Diabetic)>6.5 ?Diabetes Indicated Lab Interpretation Abnormal (test code = 35836-5) [facility] [id number] 12:34:46 Test Item Value Reference Range Interpretation Comments TROPONIN I (test 0.006 ng/mL See_Comment [Automated code = 6388396580) message] The system which generated this result [...] ? Lab Interpretation Normal (test code = 31516-1) [facility]AL [id number] 12:31:45 Test Item Value Reference Range Interpretation Comments NT-proBNP (test code 465 pg/mL See_Comment H [Autom ated = 6269342739) message] The system which generated this result transmitted reference range : <=125. The reference range was not used to interpret this result as normal/abnormal . NISHA (test code = NISHA) Biotin has been reported to cause a negative bias, interpret results relative to patient's use of biotin. Lab Interpretation Abnormal (test code = 72638-4) [facility]2021-[facility]-10 12:23:24 Test Item Value Reference Range Interpretation Comments MAGNESIUM (test code = 3853460854) 1.2 mg/dL 1.7-2.4 L Lab Interpretation (test code = Abnormal 44163-7) [facility]COMP[facility] METABOLIC PANEL (45523)2020-09-05 12:23:06 Test Item Value Reference Range Interpretation Comments NA (test code = 138 mmol/L 135-145 8700700933) K (test code = 3.0 mmol/L 3.5-5.0 L 8518516276) CL (test code = 102 mmol/L 98-108 6974063310) CO2 TOTAL (test code = 28 mmol/L 23-31 2860520110) AGAP (test code = 2-16 6826844202) BUN (test code = 11 mg/dL 7-23 4168202030) GLUCOSE (test code = 172 mg/dL 70-110 H 6244184979) CREATININE (test code = 0.60 mg/dL 0.50-1.04 2054619022) TOTAL BILI (test code = 0.5 mg/dL 0.1-1.1 7446313531) CALCIUM (test code = 8.0 mg/dL 8.6-10.6 L 0805753013) T PROTEIN (test code = 5.9 g/dL 6.3-8.2 L 0847190487) ALBUMIN (test code = 3.2 g/dL 3.5-5.0 L 5666563988) ALK PHOS (test code = 97 U/L 34-122 6441127747) ALTv (test code = 17 U/L 5-35 1742-6) AST(SGOT) (test code = 21 U/L 13-40 5597189268) eGFR (test code = mL/min/1.73m2 4835251513) NISHA (test code = NISHA) Association of [...] tests). Lab Interpretation Abnormal (test code = 06623-0) [facility]CREATINE [id number] 12:22:45 Test Item Value Reference Range Interpretation Comments CK (test code = 4950699635) 39 U/L 33-194 Lab Interpretation (test code = Normal 48641-1) [facility] HospitalPROTHROMBIN TIME / [id number] 11:59:05 Test Item Value Reference Range Interpretation Comments PROTIME PATIENT (test See_Comment [Auto mated message] code = 5964-2) The system [employer] generated this result transmitted ref erence range: 12.0 - 1 4.7 Seconds. The re ference range was not u sed to interpret this result as normal/abnor mal. INR (test code = 6301-6) Nor mal INR <1.1; Warfarin Therap eutic range 2.0 to 3. 0 or 2.5 to 3.5, dep ending upon the indica tions. Lab Interpretation (test Normal code = 15593-6) [facility] HospitalCT ABDOMEN PELVIS WO [id number] 11:36:381. 3-4 mm, bilateral nonobstructing renal stones [...] are seen.2. Otherwise, no acute finding.RL: [phone] [facility] WITH [id number] 11:29:17 Test Item Value Reference Range Interpretation Comments WBC (test code = See_Comment [Automated 6690-2) message] The [employer] stem which generated this result transmitted reference [...] (test code = 38.2 fL 39.0-49.9 L 34121-3) RDW-CV (test code = 12.4 % 12.0-15.5 788-0) PLT (test code = See_Comment [Automated 777-3) message] The sy stem which generated this result transmitted reference range : 166 - 358 10*3/ ?L. The reference r chelsie was not used to interpret this result as normal/abnormal . MPV (test code = 10.9 fL 9.5-12.9 46308-6) NRBC/100 WBC (test See_Comment [Automat ed code = 7509270893) message] The system which generated this result transmitted reference range : 0.0 - 10.0 /100 WBCs. The refer ence range was not u sed to interpret th is result as normal/abnormal . NRBC x10^3 (test code <0.01 See_Comment [Auto mated = 1834328558) message] The s ystem which generated this result transmitted reference range : 10*3/?L. The reference range was not used to interpret this result as normal/abnormal . GRAN MAT (NEUT) % 61.7 % (test code = 770-8) IMM GRAN % (test code 0.40 % = 9742353373) LYMPH % (test code = 26.7 % 736-9) MONO % (test code = 7.7 % 5905-5) EOS % (test code = 3.0 % 713-8) BASO % (test code = 0.5 % 706-2) GRAN MAT x10^3(ANC) 5.11 10*3/uL 1.88-7.09 (test code = 2159830468) IMM GRAN x10^3 (test 0.03 10*3/uL 0.00-0.06 code = 4262431384) LYMPH x10^3 (test code 2.21 10*3/uL 1.32-3.29 = 731-0) MONO x10^3 (test code 0.64 10*3/uL 0.33-0.92 = 742-7) EOS x10^3 (test code = 0.25 10*3/uL 0.03-0.39 711-2) BASO x10^3 (test code 0.04 10*3/uL 0.01-0.07 = 704-7) Lab Interpretation Abnormal (test code = 65055-1) [facility] HospitalTHYROID STIMULATING [id number] 10:36:10 Test Item Value Reference Range Interpretation Comments TSH (test code = See_Comment [Automated message] 3738455442) The system [employer] generated this result transmitted ref erence range: 0.45 - 4 .70 mIU/L. The refe rence range was not u sed to interpret this result as normal/abnor mal. Lab Interpretation (test Normal code = 79268-2) [facility]2021-[facility]-10 10:04:49 Test Item Value Reference Range Interpretation Comments MAGNESIUM (test code = 2582310375) 1.3 mg/dL 1.7-2.4 L Lab Interpretation (test code = Abnormal 35288-5) [facility]PHOSPHORUS2021-04-10 10:04:49 Test Item Value Reference Range Interpretation Comments PHOSPHORUS (test code = 8745984714) 3.7 mg/dL 2.5-5.0 Lab Interpretation (test code = Normal 61687-2) [facility]COVID[facility] (ID NOW RAPID TESTING)2020-09-05 06:06:14 Test Item Value Reference Range Interpretation Comments SARS-CoV-2 Rapid ID NOW Not Detected Not Detected (test code = 36284-6) NISHA (test code = NISHA) ID NOW COVID-19 Assay is an isothermal nucleic acid amplification test intended for the qualitative detection of nucleic acid from SARS-CoV-2 viral RNA in nasopharyngeal ([employer]) specimens. It is used under Emergency Use [...] indicated. Lab Interpretation Normal (test code = 10757-6) [facility]2020-09-05 04:27:52 Test Item Value Reference Range Interpretation Comments POCT GLU (test code = 9569558433) 463 mg/dL 70-110 HH Lab Interpretation (test code = Abnormal 57529-1) [facility]TR[facility] [id number] 03:44:02 Test Item Value Reference Range Interpretation Comments TROPONIN I (test 0.004 ng/mL See_Comment [Automated code = 5220657604) message] The system which generated this result [...] ? Lab Interpretation Normal (test code = 90052-8) [facility] HospitalN-[facility]MINAL [id number] 03:40:44 Test Item Value Reference Range Interpretation Comments NT-proBNP (test code 351 pg/mL See_Comment H [Autom ated = 9824771092) message] The system which generated this result transmitted reference range : <=125. The reference range was not used to interpret this result as normal/abnormal . NISHA (test code = NISHA) Biotin has been reported to cause a negative bias, interpret results relative to patient's use of biotin. Lab Interpretation Abnormal (test code = 58588-9) [facility]URIN[facility]IS2021-[facility]-10 03:36:15 Test Item Value Reference Range Interpretation Comments APPEARANCE (test code = Hazy Clear A 1535872612) COLOR (test code = Yellow Yellow 3634444272) PH (test code = 4.8-8.0 2632554222) SP GRAVITY (test code = 1.003-1.030 0611452297) GLU U QUAL (test code = 500 mg/dL Normal A 4228932778) BLOOD (test code = Negative Negative 6628335017) KETONES (test code = Negative Negative 6113988998) PROTEIN (test code = Negative Negative 2887-8) UROBILIN (test code = Normal Normal 3889659727) BILIRUBIN (test code = Negative Negative 8998534878) NITRITE (test code = Positive Negative A 0940012031) LEUK JOSEFA (test code = 75/uL Negative A 8855956830) RBC/HPF (test code = See_Comment [Autom ated message] 0835551764) The system [employer] generated this result transmit anthony reference range : 0 - 3 HPF. The refe rence range was not u sed to interpret th is result as normal/abnormal . WBC/HPF (test code = See_Comment H [Autom ated message] 4509072116) The system whic h generated this result transmit anthony reference range : 0 - 5 HPF. The refe rence range was not u sed to interpret th is result as normal/abnormal . BACTERIA (test code = Many Negative A 3701260365) MUCOUS (test code = Slight Negative LPF A 0391034486) SQ EPITH (test code = HPF 4789853608) YEAST BUD (test code = See_Comment H [Aut omated message] 1393481867) The system [employer] generated this result transmit anthony reference range : <=1 HPF. The refere nce range was not u sed to interpret th is result as normal/abnormal . Lab Interpretation (test Abnormal code = 21184-7) [facility]LIPASE[facility] 03:31:20 Test Item Value Reference Range Interpretation Comments LIPASE (test code = 2589086564) 121 U/L 0-220 Lab Interpretation (test code = Normal 27273-4) [facility]OLIC PANEL (01797)2020-09-05 03:14:37 Test Item Value Reference Range Interpretation Comments NA (test code = 130 mmol/L 135-145 L 0806095725) K (test code = 3.3 mmol/L 3.5-5.0 L 9831301253) CL (test code = 90 mmol/L 98-108 L 4745681793) CO2 TOTAL (test code = 29 mmol/L 23-31 9753665234) AGAP (test code = 2-16 1309933868) BUN (test code = 13 mg/dL 7-23 0221672586) GLUCOSE (test code = 605 mg/dL 70-110 HH 7899561136) CREATININE (test code = 0.68 mg/dL 0.50-1.04 3003852704) TOTAL BILI (test code = 0.7 mg/dL 0.1-1.7 7877232943) CALCIUM (test code = 8.6 mg/dL 8.6-10.6 9443015129) T PROTEIN (test code = 7.3 g/dL 6.3-8.2 3841615523) ALBUMIN (test code = 4.3 g/dL 3.5-5.0 8485603975) ALK PHOS (test code = 138 U/L 34-122 H 7658691698) ALTv (test code = 23 U/L 5-35 1742-6) AST(SGOT) (test code = 24 U/L 13-40 3147297813) eGFR (test code = mL/min/1.73m2 7285162916) NISHA (test code = NISHA) Association of [...] tests). Lab Interpretation Abnormal (test code = 90430-0) [facility] WITH [id number] 03:03:56 Test Item Value Reference Range Interpretation Comments WBC (test code = See_Comment [Automated 8291-2) message] The sy stem which generated this result transmitted reference range : 4.30 - 11.10 10*3/?L. The reference range was not used to interpret this result as normal/abnormal . RBC (test code = See_Comment [Automated 170-8) message] The sy stem which generated this [...] RDW-SD (test code = 40.1 fL 39.0-49.9 41129-6) RDW-CV (test code = 12.7 % 12.0-15.5 788-0) PLT (test code = See_Comment H [Automated 777-3) message] The sy stem which generated this result transmitted reference range : 166 - 358 10*3/ ?L. The reference r chelsie was not used to interpret this result as normal/abnormal . MPV (test code = 11.0 fL 9.5-12.9 98194-7) NRBC/100 WBC (test See_Comment [Automat ed code = 0012558756) message] The system which generated this result transmitted reference range : 0.0 - 10.0 /100 WBCs. The refer ence range was not u sed to interpret th is result as normal/abnormal . NRBC x10^3 (test code <0.01 See_Comment [Auto mated = 5424872641) message] The s ystem which generated this result transmitted reference range : 10*3/?L. The reference range was not used to interpret this result as normal/abnormal . GRAN MAT (NEUT) % 66.6 % (test code = 770-8) IMM GRAN % (test code 0.40 % = 3135611291) LYMPH % (test code = 23.7 % 736-9) MONO % (test code = 6.1 % 5905-5) EOS % (test code = 2.7 % 713-8) BASO % (test code = 0.5 % 706-2) GRAN MAT x10^3(ANC) 5.00 10*3/uL 1.88-7.09 (test code = 3775073541) IMM GRAN x10^3 (test 0.03 10*3/uL 0.00-0.06 code = 9535903472) LYMPH x10^3 (test code 1.78 10*3/uL 1.32-3.29 = 731-0) MONO x10^3 (test code 0.46 10*3/uL 0.33-0.92 = 742-7) EOS x10^3 (test code = 0.20 10*3/uL 0.03-0.39 711-2) BASO x10^3 (test code 0.04 10*3/uL 0.01-0.07 = 704-7) Lab Interpretation Abnormal (test code = 60748-4) [facility] VENOUS BLOOD [id number] 02:38:19 Test Item Value Reference Range Interpretation Comments PH (test code = 7.32-7.42 9518117861) PCO2 JUSTIN (test code = See_Comment [Auto mated message] 3447140086) The system [employer] generated this result transmitted ref erence range: 41 - 51 mmHg. The reference r chelsie was not used to interpret this result as normal/abnor mal. PO2 JUSTIN (test code = See_Comment [Autom ated message] 8774076191) The system [employer] generated this result transmitted ref erence range: 25 - 40 mmHg. The reference r chelsie was not used to interpret this result as normal/abnor mal. HCO3 JUSTIN (test code = See_Comment H [Auto mated message] 8604870748) The system [employer] generated this result transmitted ref erence range: 24 - 28 mEq/L. The reference r chelsie was not used to interpret this result as normal/abnor mal. AC VBE(BEAKER) (test mEq/L code = 0586139271) Lab Interpretation (test Abnormal code = 34233-3) [facility] GLUCOSE (AUTOMATED)2020-09-05 01:59:51 Test Item Value Reference Range Interpretation Comments POCT GLU (test code = 1662153322) 557 mg/dL 70-110 HH Lab Interpretation (test code = Abnormal 70096-2) [facility] HEMOGLOBIN A1C [id number] 21:16:00 Test Item Value Reference Range Interpretation Comments POCT HBA1C (test code = 4548-4) >14 4-6 A Lab Interpretation (test code = Abnormal 64705-8) [facility] [id number] 21:16:00 Test Item Value Reference Range Interpretation Comments POCT HBA1C (test code = 4548-4) >14 4-6 A Lab Interpretation (test code = Abnormal 78387-5) [facility]XR L[facility]BAR SPINE 4 [id number] 22:59:21XR LUMBAR SPINE 4 VW HISTORY: Female [...] the left kidney probablyrepresents a small renal calculus.[facility]XR HIPS 2 VW [id number] 22:34:44 Impression: 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 RL: ?[id number] Clinical indication: Severe acute on chronic hip [...] hip joint space withoutevidence of fracture visualized.RL: [address] [facility]GC & CHLAMYDIA AMPLIFIED [id number] 20:07:00 Test Item Value Reference Range Interpretation Comments C. trachomatis Nucleic Negative Negative Acid (test code = 88926-8) N. gonorrhoeae Nucleic Negative Negative Acid (test code = 73085-0) NISHA (test code = NISHA) Reliable results [...] clinician. Lab Interpretation Normal (test code = 73345-3) [facility] HospitalTRICHOMONAS AMPLIFIED [id number] 20:02:00 Test Item Value Reference Range Interpretation Comments Trichomonas Nucleic Negative Negative Acid (test code = 79664-6) NISHA (test code = NISHA) Reliable results [...] clinician. Lab Interpretation Normal (test code = 74637-6) [facility]GALV ONLY - VAGINAL PATHOGENS BY NUCLEIC ACID [id number] 18:40:00 Test Item Value Reference Range Interpretation Comments Trichomonas vaginalis Negative Negative (test code = 0056028937) Nasrin species (test Positive Negative A code = 0675204780) Nasrin glabrata (test Positive Negative A code = 98904-1) Bacterial Vaginosis Positive Negative A (test code = 89566-9) NISHA (test code = NISHA) Reliable results [...] clinician. Lab Interpretation Abnormal (test code = 18394-5) [facility] URINALYSIS W/O SPECIFIC [id number] 19:50:00 Test Item Value Reference Range Interpretation [...] code = 3257) neg Negative - Negative [facility] URINALYSIS W/O SPECIFIC [id number] 19:50:00 Test Item Value Reference Range Interpretation [...] code = 3257) neg Negative - Negative [facility] URINALYSIS W/O SPECIFIC [id number] 19:50:00 Test Item Value Reference Range Interpretation [...] code = 3257) neg Negative - Negative [facility] HEMOGLOBIN A1C [id number] 22:01:00 Test Item Value Reference Range Interpretation Comments POCT HBA1C (test code = 4548-4) >14.0 4-6 [facility] HEMOGLOBIN A1C [id number] 22:01:00 Test Item Value Reference Range Interpretation Comments POCT HBA1C (test code = 4548-4) >14.0 4-6 [facility] HospitalBI SCREENING MAMMOGRAM [id number] 22:41:31Examination:BI SCREENING MAMMOGRAM BILATERAL History:Patient is 49 [...] the study and agree with the resident's/fellow's report.[facility]2019-08-16 13:03:00 Test Item Value Reference Range Interpretation Comments POCT GLU (test code = 6045779249) 228 mg/dL 70-110 H Lab Interpretation (test code = Abnormal 66386-1) [facility]MAG[facility]UM2020-03-20 10:40:00 Test Item Value Reference Range Interpretation Comments MAGNESIUM (test code = 1853506157) 4.7 mg/dL 1.7-2.4 H Lab Interpretation (test code = Abnormal 15415-1) [facility] HospitalBASIC METABOLIC PANEL (NA, K, CL, CO2, GLUCOSE, BUN, CREATININE, CA)2019-08-16 10:36:00 Test Item Value Reference Range Interpretation Comments NA (test code = 135 mmol/L 135-145 4059782190) K (test code = 3.9 mmol/L 3.5-5 2952678293) CL (test code = 107 mmol/L 98-108 8227108522) CO2 TOTAL (test code = 22 mmol/L 23-31 L 7999652134) AGAP (test code = 2-16 8530006168) BUN (test code = 19 mg/dL 7-23 1260431932) GLUCOSE (test code = 236 mg/dL 70-110 H 7794450195) CREATININE (test code = 0.91 mg/dL 0.5-1.04 4696124681) CALCIUM (test code = 6.6 mg/dL 8.6-10.6 L 2816971904) eGFR Calculation mL/min/1.73m2 (Non-) (test code = 7087257454) eGFR Calculation mL/min/1.73m2 () (test code = 0865344560) NISHA (test code = NISHA) Association of [...] tests). Lab Interpretation Abnormal (test code = 47257-1) [facility] WITH [id number] 10:13:00 Test Item Value Reference Range Interpretation Comments WBC (test code = See_Comment H [Automated 7690-2) message] The sy stem which [...] RDW-SD (test code = 41.6 fL 39-49.9 69762-6) RDW-CV (test code = 12.8 % 12-15.5 788-0) PLT (test code = See_Comment [Automated 777-3) message] The sy stem which generated this result transmitted reference range : 166 - 358 10*3/ ?L. The reference r chelsie was not used to interpret this result as normal/abnormal . MPV (test code = 10.6 fL 9.5-12.9 81976-2) NRBC/100 WBC (test See_Comment [Automat ed code = 9600281149) message] The system which generated this result transmitted reference range : 0.0 - 10.0 /100 WBCs. The refer ence range was not u sed to interpret th is result as normal/abnormal . NRBC x10^3 (test code <0.01 See_Comment [Auto mated = 8830451942) message] The s ystem which generated this result transmitted reference range : 10*3/?L. The reference range was not used to interpret this result as normal/abnormal . GRAN MAT (NEUT) % 77.9 % (test code = 770-8) IMM GRAN % (test code 0.80 % = 7543884125) LYMPH % (test code = 13.8 % 736-9) MONO % (test code = 6.8 % 5905-5) EOS % (test code = 0.3 % 713-8) BASO % (test code = 0.4 % 706-2) GRAN MAT x10^3(ANC) 8.66 10*3/uL 1.88-7.09 H (test code = 2068448134) IMM GRAN x10^3 (test 0.09 10*3/uL 0-0.06 H code = 2451139086) LYMPH x10^3 (test code 1.54 10*3/uL 1.32-3.29 = 731-0) MONO x10^3 (test code 0.76 10*3/uL 0.33-0.92 = 742-7) EOS x10^3 (test code = 0.03 10*3/uL 0.03-0.39 711-2) BASO x10^3 (test code 0.04 10*3/uL 0.01-0.07 = 704-7) Lab Interpretation Abnormal (test code = 46805-3) [facility] GLUCOSE (AUTOMATED)2019-08-16 09:54:00 Test Item Value Reference Range Interpretation Comments POCT GLU (test code = 8464710692) 218 mg/dL 70-110 H Lab Interpretation (test code = Abnormal 14660-4) [facility] GLUCOSE (AUTOMATED)2019-08-16 07:12:00 Test Item Value Reference Range Interpretation Comments POCT GLU (test code = 1342673603) 355 mg/dL 70-110 H Lab Interpretation (test code = Abnormal 57498-8) [facility] GLUCOSE (AUTOMATED)2019-08-16 05:06:00 Test Item Value Reference Range Interpretation Comments POCT GLU (test code = 7579659269) 457 mg/dL 70-110 HH Lab Interpretation (test code = Abnormal 68120-6) [facility] HEAD WO [id number] 00:55:12 No acute intracranial hemorrhage or mass [...] clear. IMPRESSIONNo acute intracranial hemorrhage or mass effect.[facility] GLUCOSE (AUTOMATED)2019-08-15 22:15:00 Test Item Value Reference Range Interpretation Comments POCT GLU (test code = 1463802996) 304 mg/dL 70-110 H Lab Interpretation (test code = Abnormal 16470-3) [facility] [facility]:04:00 Test Item Value Reference Range Interpretation Comments APTT Patient (test code See_Comment L [Au tomated message] = 3173-2) The system [employer] generated this result transmitted ref erence range: 26 - 36 Seconds. The reference range was not used to int erpret this result as normal/abnormal . Lab Interpretation (test Abnormal code = 71909-9) [facility] GLUCOSE (AUTOMATED)2019-08-15 20:41:00 Test Item Value Reference Range Interpretation Comments POCT GLU (test code = 2858799130) 274 mg/dL 70-110 H Lab Interpretation (test code = Abnormal 94883-7) [facility] GLUCOSE (AUTOMATED)2019-08-15 17:10:00 Test Item Value Reference Range Interpretation Comments POCT GLU (test code = 1813995761) 308 mg/dL 70-110 H Lab Interpretation (test code = Abnormal 09549-6) [facility] ACT LOW [id number] 15:44:00 Test Item Value Reference Range Interpretation Comments ACTLR (test code = See_Comment H [Automat ed message] 5804297803) The system [employer] generated this result transmitted ref erence range: 89 - 169 Seconds. The reference range was not used to int erpret this result as normal/abnormal . Lab Interpretation (test Abnormal code = 72442-9) [facility] ACT LOW [id number] 15:22:00 Test Item Value Reference Range Interpretation Comments ACTLR (test code = See_Comment H [Automat ed message] 5722398193) The system [employer] generated this result transmitted ref erence range: 89 - 169 Seconds. The reference range was not used to int erpret this result as normal/abnormal . Lab Interpretation (test Abnormal code = 56402-4) [facility] ACT LOW [id number] 14:44:00 Test Item Value Reference Range Interpretation Comments ACTLR (test code = See_Comment H [Automat ed message] 7130794765) The system [employer] generated this result transmitted ref erence range: 89 - 169 Seconds. The reference range was not used to int erpret this result as normal/abnormal . Lab Interpretation (test Abnormal code = 37729-0) [facility] ACT LOW [id number] 14:26:00 Test Item Value Reference Range Interpretation Comments ACTLR (test code = See_Comment H [Automat ed message] 1650986317) The system [employer] generated this result transmitted ref erence range: 89 - 169 Seconds. The reference range was not used to int erpret this result as normal/abnormal . Lab Interpretation (test Abnormal code = 64666-6) [facility] METABOLIC PANEL (NA, K, CL, CO2, GLUCOSE, BUN, CREATININE, CA)2019-08-15 11:06:00 Test Item Value Reference Range Interpretation Comments NA (test code = 134 mmol/L 135-145 L 5138613104) K (test code = 4.3 mmol/L 3.5-5 4292903705) CL (test code = 105 mmol/L 98-108 6195404908) CO2 TOTAL (test code = 22 mmol/L 23-31 L 7257565868) AGAP (test code = 2-16 5644640726) BUN (test code = 21 mg/dL 7-23 9024029072) GLUCOSE (test code = 410 mg/dL 70-110 H 6863713036) CREATININE (test code = 0.92 mg/dL 0.5-1.04 8664499922) CALCIUM (test code = 7.5 mg/dL 8.6-10.6 L 1508181191) eGFR Calculation mL/min/1.73m2 (Non-) (test code = 8116920217) eGFR Calculation mL/min/1.73m2 () (test code = 0356699498) NISHA (test code = NISHA) Association of [...] tests). Lab Interpretation Abnormal (test code = 20531-2) [facility] Test Item Value Reference Range Interpretation Comments MAGNESIUM (test code = 0192761730) 1.6 mg/dL 1.7-2.4 L Lab Interpretation (test code = Abnormal 38762-2) [facility] Practice Guideline[facility] Note: Draw and Send all Lab STAT.2019-08-15 10:47:00 Test Item Value Reference Range Interpretation Comments APTT Patient (test code See_Comment H [Au tomated message] = 3173-2) The system [employer] generated this result transmitted ref erence range: 26 - 36 Seconds. The reference range was not used to int erpret this result as normal/abnormal . Lab Interpretation (test Abnormal code = 29006-8) [facility] WITH [id number] 10:46:00 Test Item Value Reference Range Interpretation [...] RDW-SD (test code = 39.1 fL 39-49.9 26620-8) RDW-CV (test code = 12.4 % 12-15.5 788-0) PLT (test code = See_Comment [Automated 777-3) message] The sy stem which generated this result transmitted reference range : 166 - 358 10*3/ ?L. The reference r chelsie was not used to interpret this result as normal/abnormal . MPV (test code = 10.9 fL 9.5-12.9 47569-9) NRBC/100 WBC (test See_Comment [Automat ed code = 1750530977) message] The system which generated this result transmitted reference range : 0.0 - 10.0 /100 WBCs. The refer ence range was not u sed to interpret th is result as normal/abnormal . NRBC x10^3 (test code <0.01 See_Comment [Auto mated = 3692356611) message] The s ystem which generated this result transmitted reference range : 10*3/?L. The reference range was not used to interpret this result as normal/abnormal . GRAN MAT (NEUT) % 80.6 % (test code = 770-8) IMM GRAN % (test code 0.50 % = 6327018739) LYMPH % (test code = 12.5 % 736-9) MONO % (test code = 5.8 % 5905-5) EOS % (test code = 0.4 % 713-8) BASO % (test code = 0.2 % 706-2) GRAN MAT x10^3(ANC) 8.94 10*3/uL 1.88-7.09 H (test code = 9341755518) IMM GRAN x10^3 (test 0.06 10*3/uL 0-0.06 code = 2808124623) LYMPH x10^3 (test code 1.39 10*3/uL 1.32-3.29 = 731-0) MONO x10^3 (test code 0.64 10*3/uL 0.33-0.92 = 742-7) EOS x10^3 (test code = 0.04 10*3/uL 0.03-0.39 711-2) BASO x10^3 (test code <0.03 0.01-0.07 = 704-7) Lab Interpretation Abnormal (test code = 28419-7) [facility] GLUCOSE (AUTOMATED)2019-08-15 09:48:00 Test Item Value Reference Range Interpretation Comments POCT GLU (test code = 4730520037) 319 mg/dL 70-110 H Lab Interpretation (test code = Abnormal 07273-5) [facility] GLUCOSE (AUTOMATED)2019-08-15 06:35:00 Test Item Value Reference Range Interpretation Comments POCT GLU (test code = 6675762393) 479 mg/dL 70-110 HH Lab Interpretation (test code = Abnormal 95334-3) [facility] GLUCOSE (AUTOMATED)2019-08-15 03:10:00 Test Item Value Reference Range Interpretation Comments POCT GLU (test code = 1730386396) 450 mg/dL 70-110 HH Lab Interpretation (test code = Abnormal 77721-3) [facility] Note: Draw and Send all Lab STAT.2019-08-15 02:31:00 Test Item Value Reference Range Interpretation Comments APTT Patient (test code See_Comment HH [Au tomated message] = 3173-2) The system [employer] generated this result transmitted ref erence range: 26 - 36 Seconds. The reference range was not used to int erpret this result as normal/abnormal . Lab Interpretation (test Abnormal code = 97272-9) [facility] METABOLIC PANEL (NA, K, CL, CO2, GLUCOSE, BUN, CREATININE, CA)2019-08-15 02:30:00 Test Item Value Reference Range Interpretation Comments NA (test code = 131 mmol/L 135-145 L 8639838069) K (test code = 4.6 mmol/L 3.5-5 4032210435) CL (test code = 102 mmol/L 98-108 1143518087) CO2 TOTAL (test code = 21 mmol/L 23-31 L 8271077594) AGAP (test code = 2-16 7604087809) BUN (test code = 21 mg/dL 7-23 0668792994) GLUCOSE (test code = 479 mg/dL 70-110 HH 4158334395) CREATININE (test code = 1.08 mg/dL 0.5-1.04 H 2897938903) CALCIUM (test code = 7.3 mg/dL 8.6-10.6 L 4164902704) eGFR Calculation mL/min/1.73m2 (Non-) (test code = 5260266845) eGFR Calculation mL/min/1.73m2 () (test code = 3405105115) NISHA (test code = NISHA) Association of [...] tests). Lab Interpretation Abnormal (test code = 11938-7) [facility] GLUCOSE (AUTOMATED)2019-08-15 01:59:00 Test Item Value Reference Range Interpretation Comments POCT GLU (test code = 0050631571) 471 mg/dL 70-110 HH Lab Interpretation (test code = Abnormal 90956-4) [facility] GLUCOSE (AUTOMATED)2019-08-14 22:49:00 Test Item Value Reference Range Interpretation Comments POCT GLU (test code = 6187455740) 399 mg/dL 70-110 H Lab Interpretation (test code = Abnormal 81163-2) [facility] GLUCOSE (AUTOMATED)2019-08-14 20:45:00 Test Item Value Reference Range Interpretation Comments POCT GLU (test code = 6609630180) 473 mg/dL 70-110 HH Lab Interpretation (test code = Abnormal 49411-2) [facility] (for use with Heparin Practice Guideline). Note: Draw and Send all Lab STAT.2019-08-14 19:52:00 Test Item Value Reference Range Interpretation Comments APTT Patient (test code = See_Comment [ Automated message] 3173-2) The system [employer] generated this result transmitted ref erence range: 26 - 36 Seconds. The re ference range was not u sed to interpret this result as normal/abnor mal. Lab Interpretation (test Normal code = 31743-4) [facility] GLUCOSE (AUTOMATED)2019-08-14 17:24:00 Test Item Value Reference Range Interpretation Comments POCT GLU (test code = 421 mg/dL 70-110 H Notifi ed Provider 6451808887) Lab Interpretation (test Abnormal code = 69105-1) [facility] A B RSV [id number] 16:21:00 Test Item Value Reference Range Interpretation Comments Influenza A virus by PCR (test code Negative Negative = 60086-2) Influenza B virus by PCR (test code Negative Negative = 14827-4) RSV by PCR (test code = 35964-9) Negative Negative Lab Interpretation (test code = Normal 05563-3) [facility] GLUCOSE (AUTOMATED)2019-08-14 14:00:00 Test Item Value Reference Range Interpretation Comments POCT GLU (test code = 3129662663) 314 mg/dL 70-110 H Lab Interpretation (test code = Abnormal 35990-0) [facility] (NA, K, CL, CO2, GLUCOSE, BUN, CREATININE, CA)2019-08-14 11:02:00 Test Item Value Reference Range Interpretation Comments NA (test code = 135 mmol/L 135-145 8733847208) K (test code = 4.4 mmol/L 3.5-5 1368280448) CL (test code = 106 mmol/L 98-108 7000610635) CO2 TOTAL (test code = 23 mmol/L 23-31 1645657207) AGAP (test code = 2-16 5936855067) BUN (test code = 15 mg/dL 7-23 4955834999) GLUCOSE (test code = 273 mg/dL 70-110 H 2550992207) CREATININE (test code = 1.04 mg/dL 0.5-1.04 5380786746) CALCIUM (test code = 7.5 mg/dL 8.6-10.6 L 7560113755) eGFR Calculation mL/min/1.73m2 (Non-) (test code = 1598555562) eGFR Calculation mL/min/1.73m2 () (test code = 0440575883) NISHA (test code = NISHA) Association of [...] tests). Lab Interpretation Abnormal (test code = 06389-0) [facility] 11:02:00 Test Item Value Reference Range Interpretation Comments MAGNESIUM (test code = 0006538668) 1.6 mg/dL 1.7-2.4 L Lab Interpretation (test code = Abnormal 66780-2) [facility]for use with [facility] Practice Guideline). [...] mal. Lab Interpretation (test Normal code = 48974-3) [facility] WITH [id number] 10:28:00 Test Item Value Reference Range Interpretation Comments WBC (test code = See_Comment [Automated 2690-2) message] The sy stem which generated this [...] RDW-SD (test code = 41.0 fL 39-49.9 36808-7) RDW-CV (test code = 12.6 % 12-15.5 788-0) PLT (test code = See_Comment [Automated 777-3) message] The sy stem which generated this result transmitted reference range : 166 - 358 10*3/ ?L. The reference r chelsie was not used to interpret this result as normal/abnormal . MPV (test code = 10.3 fL 9.5-12.9 34549-6) NRBC/100 WBC (test See_Comment [Automat ed code = 6068290479) message] The system which generated this result transmitted reference range : 0.0 - 10.0 /100 WBCs. The refer ence range was not u sed to interpret th is result as normal/abnormal . NRBC x10^3 (test code <0.01 See_Comment [Auto mated = 1941991980) message] The s ystem which generated this result transmitted reference range : 10*3/?L. The reference range was not used to interpret this result as normal/abnormal . GRAN MAT (NEUT) % 63.5 % (test code = 770-8) IMM GRAN % (test code 0.30 % = 8466964047) LYMPH % (test code = 19.9 % 736-9) MONO % (test code = 6.3 % 5905-5) EOS % (test code = 9.7 % 713-8) BASO % (test code = 0.3 % 706-2) GRAN MAT x10^3(ANC) 6.48 10*3/uL 1.88-7.09 (test code = 9155604267) IMM GRAN x10^3 (test 0.03 10*3/uL 0-0.06 code = 8933962287) LYMPH x10^3 (test code 2.03 10*3/uL 1.32-3.29 = 731-0) MONO x10^3 (test code 0.64 10*3/uL 0.33-0.92 = 742-7) EOS x10^3 (test code = 0.99 10*3/uL 0.03-0.39 H 711-2) BASO x10^3 (test code 0.03 10*3/uL 0.01-0.07 = 704-7) Lab Interpretation Abnormal (test code = 04190-4) [facility] GLUCOSE (AUTOMATED)2019-08-14 01:29:00 Test Item Value Reference Range Interpretation Comments POCT GLU (test code = 4238972317) 236 mg/dL 70-110 H Lab Interpretation (test code = Abnormal 28991-1) [facility] (for use with Heparin Practice Guideline). Note: Draw and Send all Lab STAT.2019-08-13 23:18:00 Test Item Value Reference Range Interpretation Comments APTT Patient (test code = See_Comment [ Automated message] 3173-2) The system [employer] generated this result transmitted ref erence range: 26 - 36 Seconds. The re ference range was not u sed to interpret this result as normal/abnor mal. Lab Interpretation (test Normal code = 58979-4) [facility] GLUCOSE (AUTOMATED)2019-08-13 23:09:00 Test Item Value Reference Range Interpretation Comments POCT GLU (test code = 3555831951) 305 mg/dL 70-110 H Lab Interpretation (test code = Abnormal 81425-9) [facility] GLUCOSE (AUTOMATED)2019-08-13 19:29:00 Test Item Value Reference Range Interpretation Comments POCT GLU (test code = 0310387011) 310 mg/dL 70-110 H Lab Interpretation (test code = Abnormal 93225-4) [id number] 14:[facility]00 Test Item Value Reference Range Interpretation Comments TROPONIN I (test 0.012 ng/mL See_Comment [Automated code = 2957152963) message] The system which generated this result [...] ? Lab Interpretation Normal (test code = 10107-0) [facility] 13:16:00 Test Item Value Reference Range Interpretation Comments POCT GLU (test code = 6018135451) 281 mg/dL 70-110 H Lab Interpretation (test code = Abnormal 82767-7) [facility] WITH [id number] 12:20:00 Test Item Value Reference Range Interpretation [...] RDW-SD (test code = 40.6 fL 39-49.9 87148-3) RDW-CV (test code = 12.7 % 12-15.5 788-0) PLT (test code = See_Comment [Automated 777-3) message] The sy stem which generated this result transmitted reference range : 166 - 358 10*3/ ?L. The reference r chelsie was not used to interpret this result as normal/abnormal . MPV (test code = 10.7 fL 9.5-12.9 04414-0) NRBC/100 WBC (test See_Comment [Automat ed code = 3846105235) message] The system which generated this result transmitted reference range : 0.0 - 10.0 /100 WBCs. The refer ence range was not u sed to interpret th is result as normal/abnormal . NRBC x10^3 (test code <0.01 See_Comment [Auto mated = 3853307204) message] The s ystem which generated this result transmitted reference range : 10*3/?L. The reference range was not used to interpret this result as normal/abnormal . GRAN MAT (NEUT) % 71.8 % (test code = 770-8) IMM GRAN % (test code 0.50 % = 4324823164) LYMPH % (test code = 12.3 % 736-9) MONO % (test code = 6.9 % 5905-5) EOS % (test code = 8.0 % 713-8) BASO % (test code = 0.5 % 706-2) GRAN MAT x10^3(ANC) 9.08 10*3/uL 1.88-7.09 H (test code = 6057537755) IMM GRAN x10^3 (test 0.06 10*3/uL 0-0.06 code = 1410880146) LYMPH x10^3 (test code 1.56 10*3/uL 1.32-3.29 = 731-0) MONO x10^3 (test code 0.87 10*3/uL 0.33-0.92 = 742-7) EOS x10^3 (test code = 1.01 10*3/uL 0.03-0.39 H 711-2) BASO x10^3 (test code 0.06 10*3/uL 0.01-0.07 = 704-7) Lab Interpretation Abnormal (test code = 45396-1) [facility] 09:19:00 Test Item Value Reference Range Interpretation Comments MAGNESIUM (test code = 1688806179) 1.5 mg/dL 1.7-2.4 L Lab Interpretation (test code = Abnormal 23241-2) [facility] 1 [id number] 08:54:25Impression: Moderate cardiomegaly without acute pulmonary process. Status post mediansternotomy. RL: 460 AFC: [id number] Indication: Chest pain Comparison: None Findings: Single [...] acute pulmonary process. Status post mediansternotomy.RL: 460AFC: [id number] signed by Gemini Martins MD, PhD at 08/13/2019 3:54 AMUnNacogdoches Medical CenterGlycosylated Hemoglobin (A1C)2019-08-13 07:12:00 Test Item Value Reference Range Interpretation Comments HGB A1C (test code = 4548-4) 10.8 % 4-6 H Lab Interpretation (test code = Abnormal 27662-5) [facility]AL [id number] 06:39:00 Test Item Value Reference Range Interpretation Comments NT-proBNP (test code 384 pg/mL See_Comment H [Autom ated = 1622877730) message] The system which generated this result transmitted reference range : <=125. The reference range was not used to interpret this result as normal/abnormal . NISAH (test code = NISHA) Biotin has been reported to cause a negative bias, interpret results relative to patient's use of biotin. Lab Interpretation Abnormal (test code = 41153-6) [facility]TR[facility] [id number] 06:39:00 Test Item Value Reference Range Interpretation Comments TROPONIN I (test 0.008 ng/mL See_Comment [Automated code = 8183771944) message] The system which generated this result [...] ? Lab Interpretation Normal (test code = 62870-9) [facility] (NA, K, CL, CO2, GLUCOSE, BUN, CREATININE, CA)2019-08-13 06:35:00 Test Item Value Reference Range Interpretation Comments NA (test code = 134 mmol/L 135-145 L 0084931649) K (test code = 4.1 mmol/L 3.5-5 2386914691) CL (test code = 102 mmol/L 98-108 5305289250) CO2 TOTAL (test code = 22 mmol/L 23-31 L 6507503621) AGAP (test code = 2-16 8735042803) BUN (test code = 23 mg/dL 7-23 4229877758) GLUCOSE (test code = 324 mg/dL 70-110 H 5667124025) CREATININE (test code = 1.07 mg/dL 0.5-1.04 H 3985420814) CALCIUM (test code = 8.4 mg/dL 8.6-10.6 L 2212629902) eGFR Calculation mL/min/1.73m2 (Non-) (test code = 8798121703) eGFR Calculation mL/min/1.73m2 () (test code = 7578391482) NISHA (test code = NISHA) Association of [...] tests). Lab Interpretation Abnormal (test code = 18630-5) [facility] 06:07:00 Test Item Value Reference Range Interpretation Comments APTT Patient (test code = See_Comment [ Automated message] 3173-2) The system [employer] generated this result transmitted ref erence range: 26 - 36 Seconds. The re ference range was not u sed to interpret this result as normal/abnor mal. Lab Interpretation (test Normal code = 32099-8) [facility] HospitalProthrombin Time / [id number] 06:07:00 Test Item Value Reference Range Interpretation Comments PROTIME PATIENT (test See_Comment [Auto mated message] code = 5964-2) The system [employer] generated this result transmitted ref erence range: 10.1 - 1 2.6 Seconds. The re ference range was not u sed to interpret this result as normal/abnor mal. INR (test code = 6301-6) Nor mal INR <1.1; Warfarin Therap eutic range 2.0 to 3. 0 or 2.5 to 3.5, dep ending upon the indica tions. Lab Interpretation (test Normal code = 30165-3) [facility]"
[2021-06-11] MEDS ORDERED: MORPHINE 4 MG/ML SYR ONE (03:58)
[2021-06-11] MEDS ORDERED: ONDANSETRON 4 MG/2 ML VIAL ONE (03:58)
[2021-06-11 05:19] LABS: Albumin 2.9 g/dL (3.4-5.0); Bilirubin Total 0.4 mg/dL (0.2-1.0); Potassium 3.5 mmol/L (3.5-5.1); Protein, Total 7.2 g/dL (6.4-8.2)
--- NOTE | 2021-06-11 05:53 | EDPHYS ---
Physician Documentation [facility] Name: Karen Shah Age: 51 yrs Sex: Female : 1970 Arrival Date: 06/11/2021 Time: 02:29 Bed Treatment Private MD: Isidro Kincaid HPI: 06/11 03:10 This 51 yrs old Female presents to ER via Wheelchair with complaints of Leg chasity Pain. 03:10 The patient presents with decreased range of motion, pain, that is acute. The chasity complaints affect the right hip. Context: The problem was sustained at home. Onset: The symptoms/episode began/occurred 1 day(s) ago. Modifying factors: The symptoms are alleviated by remaining still, the symptoms are aggravated by movement. Associated signs and symptoms: The patient has no apparent associated signs or symptoms. Treatment prior to arrival includes: no previous treatment. Severity of symptoms: At their worst the symptoms were moderate, in the emergency department the symptoms are unchanged. The patient has not experienced similar symptoms in the past. Historical: - Allergies: 02:53 Adhesives; sf1 02:53 Toradol; sf1 02:53 tramadol; sf1 - PMHx: 02:55 angina pectoris; CAD; Cerebrovascular accident; Diabetes - IDDM; High Cholesterol; sf1 Hypertension; Myocardial infarction; Right AKA; Seizures; - PSHx: 02:55 CABG x 2; section; right AKA; sf1 - Immunization history:: Flu vaccine is not up to date. - Social history:: Smoking status: Patient reports the use of cigarette tobacco products, smokes one pack cigarettes per day. Patient/guardian denies using alcohol, street drugs. - Family history:: not pertinent. ROS: 03:10 Constitutional: Negative for fever, chills, and weight loss, Eyes: Negative for injury, chasity pain, redness, and discharge, ENT: Negative for injury, pain, and discharge, Neck: Negative for injury, pain, and swelling, Cardiovascular: Negative for chest pain, palpitations, and edema, Respiratory: Negative for shortness of breath, cough, wheezing, and pleuritic chest pain, Abdomen/GI: Negative for abdominal pain, nausea, vomiting, diarrhea, and constipation, Back: Negative for injury and pain, : Negative for injury, bleeding, discharge, and swelling, Skin: Negative for injury, rash, and discoloration, Neuro: Negative for headache, weakness, numbness, tingling, and seizure, Psych: Negative for depression, anxiety, suicide ideation, homicidal ideation, and hallucinations, Allergy/Immunology: Negative for hives, rash, and allergies, Endocrine: Negative for neck swelling, polydipsia, polyuria, polyphagia, and marked weight changes, Hematologic/Lymphatic: Negative for swollen nodes, abnormal bleeding, and unusual bruising. 03:10 MS/extremity: Positive for decreased range of motion, pain, of the right hip. Exam: 03:10 Constitutional: This is a well developed, well nourished patient who is awake, alert, chasity and in no acute distress. Head/Face: Normocephalic, atraumatic. Eyes: Pupils equal round and reactive to light, extra-ocular motions intact. Lids and lashes normal. Conjunctiva and sclera are non-icteric and not injected. Cornea within normal limits. Periorbital areas with no swelling, redness, or edema. ENT: Nares patent. No nasal discharge, no septal abnormalities noted. Tympanic membranes are normal and external auditory canals are clear. Oropharynx with no redness, swelling, or masses, exudates, or evidence of obstruction, uvula midline. Mucous membranes moist. Neck: Trachea midline, no thyromegaly or masses palpated, and no cervical lymphadenopathy. Supple, full range of motion without nuchal rigidity, or vertebral point tenderness. No Meningismus. Chest/axilla: Normal chest wall appearance and motion. Nontender with no deformity. No lesions are appreciated. Cardiovascular: Regular rate and rhythm with a normal S1 and S2. No gallops, murmurs, or rubs. Normal PMI, no JVD. No pulse deficits. Respiratory: Lungs have equal breath sounds bilaterally, clear to auscultation and percussion. No rales, rhonchi or wheezes noted. No increased work of breathing, no retractions or nasal flaring. Abdomen/GI: Soft, non-tender, with normal bowel sounds. No distension or tympany. No guarding or rebound. No evidence of tenderness throughout. Back: No spinal tenderness. No costovertebral tenderness. Full range of motion. Pelvic Exam: Normal external genitalia. Speculum exam with closed cervical os, no discharge or bleeding noted. Bimanual exam with normal adnexa, no adnexal or cervical motion tenderness. Normal uterus. Female : Normal external genitalia. Skin: Warm, dry with normal turgor. Normal color with no rashes, no lesions, and no evidence of cellulitis. Neuro: Awake and alert, GCS 15, oriented to person, place, time, and situation. Cranial nerves II-XII grossly intact. Motor strength 5/5 in all extremities. Sensory grossly intact. Cerebellar exam normal. Normal gait. Psych: Awake, alert, with orientation to person, place and time. Behavior, mood, and affect are within normal limits. 03:10 Musculoskeletal/extremity: ROM: full active range of motion, full passive range of motion, Circulation is intact in all extremities. Sensation intact. Compartment Syndrome exam of affected extremity: is normal. DVT Exam: No signs of deep vein thrombosis. no swelling, no tenderness, negative Homans' sign noted on exam, no appreciated bluish discoloration, no erythema, no increased warmth, pain. Vital Signs: 02:51 BP 147 / 89; Pulse 102; Resp 18; Temp 97.2; Pulse Ox 98% ; Weight 64.41 kg; Height 5 sf1 ft. 4 in. (162.56 cm); Pain 10/10; 02:51 Body Mass Index 24.37 (64.41 kg, 162.56 cm) sf1 MDM: 02:57 Patient medically screened. [facility] 03:14 Data reviewed: vital signs, nurses notes, lab test result(s), radiologic studies. Data [facility] interpreted: alarm security or surveillance monitor: rate is 102 beats/min, rhythm is regular, Pulse oximetry: on room air is 98 %. Test interpretation: by ED physician or midlevel provider: plain radiologic studies. Counseling: I had a detailed discussion with the patient and/or guardian regarding: the historical points, exam findings, and any diagnostic results supporting the discharge/admit diagnosis, lab results, radiology results. 06/11 03:09 Order name: CBC with Diff [facility] 06/11 03:09 Order name: Comprehensive Metabolic Panel; Complete Time: 05:50 [facility] 06/11 03:09 Order name: Hip Right 2 View XRAY [facility] 06/11 07:17 Order name: Glucose, Ancillary Testing EDMS Administered Medications: 04:55 Drug: Zofran (Ondansetron) 4 mg Route: IVP; Site: left forearm; sf1 04:55 Follow up: Response: No adverse reaction sf1 05:01 Not Given (Other Intervention Used): morphine 4 mg IVP once; RASS on ADMIN: Combtv4, tw5 Very Agttd3, Agttd2, Rstlss1, AlertClm0, Drwsy-1, Lt Sdtn-2, Mod Sdtn-3, Dp Sdtn-4, UnArsble-5 05:02 Not Given (Other Intervention Used): morphine 10 mg IM once; RASS on ADMIN: Combtv4, tw5 Very Agttd3, Agttd2, Rstlss1, AlertClm0, Drwsy-1, Lt Sdtn-2, Mod Sdtn-3, Dp Sdtn-4, UnArsble-5 05:03 Drug: morphine 4 mg Route: IVP; Site: right wrist; tw5 05:11 Follow up: Response: No adverse reaction; RASS: Alert and Calm (0) sf1 05:10 Not Given (poor iv accesss): NS 0.9% 500 ml IV at bolus once sf1 05:59 Drug: NS 0.9% 1000 ml Route: IV; Rate: 1 bolus; Site: right wrist; lg3 07:01 Follow up: Response: No adverse reaction; IV Intake: 1000ml lg3 06:14 CANCELLED (Other Intervention Used): LanTUS (insulin glargine) 30 units Sub-Q once lg3 06:16 Drug: Insulin Regular Human 10 units {Co-Signature: sf1 (Johanna Rock RN).} Route: lg3 IVP; Site: right wrist; 06:17 Follow up: Response: No adverse reaction lg3 Disposition Summary: 06/11/21 05:52 Discharge Ordered Location: Home chasity Problem: new chasity Symptoms: have improved chasity Condition: Stable chasity Diagnosis - Peripheral vascular disease, unspecified chasity - Pain in right hip chasity - Other bursitis of hip, right hip chasity - Tobacco abuse counseling chasity - Tobacco use chasity - Type 1 diabetes mellitus with hyperglycemia - UNCONTROLLED chasity Followup: chasity - With: Private Physician - When: 2 - 3 days - Reason: Recheck today's complaints, Continuance of care, Re-evaluation by your physician Discharge Instructions: - Discharge Summary Sheet chasity - Type 1 Diabetes Mellitus, Diagnosis, Adult chasity - Hyperglycemia chasity - Musculoskeletal Pain chasity - Diabetes Mellitus and Nutrition, Adult chasity - Steps to Quit Smoking, [id number]-gg-[id number] chasity - Hip Pain chasity - Hyperglycemia, Legs-xo-Xadm chasity - Peripheral Vascular Disease, Qqvw-[id number] chasity - Aspirin and Your Heart chasity Forms: - Medication Reconciliation Form chasity - Thank You Letter chasity - Antibiotic Education chasity - Prescription Opioid Use chasity - Work release form ds4 Prescriptions: - Tylenol-Codeine #3 300 mg-30 mg Oral - take 2 tablet by ORAL route every 4-6 hours; 15 tablet; Refills: 0, Product chasity Selection Permitted Signatures: Dispatcher [employer] Isidro Good MD MD cha Gibson, Lacie, RN RN lg3 Alyssa Sharma tw5 Johanna Rock RN RN sf1 Johanna Rock RN sf1 Corrections: (The following items were deleted from the chart) 06:14 05:21 LanTUS (insulin glargine) 30 units Sub-Q once ordered. chasity lg3
--- NOTE | 2021-06-11 05:53 | ER ---
Nurse's Notes [facility] Name: Karen Shah Age: 51 yrs Sex: Female : 1970 Arrival Date: 06/11/2021 Time: 02:29 Bed Treatment Private MD: Diagnosis: Peripheral vascular disease, unspecified;Pain in right hip;Other bursitis of hip, right hip;Tobacco abuse counseling;Tobacco use;Type 1 diabetes mellitus with hyperglycemia-UNCONTROLLED Presentation: 06/11 02:51 Chief complaint: Patient states: right leg pain. Coronavirus screen: Vaccine status: sf1 Patient reports receiving the 2nd dose of the covid vaccine. Client denies travel out of the [place] in the last 14 days. Ebola Screen: Patient negative for fever greater than or equal to 101.5 degrees Fahrenheit, and additional compatible Ebola Virus Disease symptoms Patient denies exposure to infectious person. Patient denies travel to an Ebola-affected area in the 21 days before illness onset. Initial Sepsis Screen: Does the patient meet any 2 criteria? No. Patient's initial sepsis screen is negative. Does the patient have a suspected source of infection? No. Patient's initial sepsis screen is negative. Risk Assessment: Do you want to hurt yourself or someone else? Patient reports no desire to harm self or others. Onset of symptoms was June 11, 2021 at 00:00. 02:51 Method Of Arrival: Wheelchair sf1 02:51 Acuity: ARIEL 4 sf1 Triage Assessment: 02:53 General: Appears in no apparent distress. Behavior is calm, cooperative, appropriate sf1 for age. Pain: Complains of pain in lateral aspect of right knee. Musculoskeletal: Reports pain in right leg. Historical: - Allergies: 02:53 Adhesives; sf1 02:53 Toradol; sf1 02:53 tramadol; sf1 - PMHx: 02:55 angina pectoris; CAD; Cerebrovascular accident; Diabetes - IDDM; High Cholesterol; sf1 Hypertension; Myocardial infarction; Right AKA; Seizures; - PSHx: 02:55 CABG x 2; section; right AKA; sf1 - Immunization history:: Flu vaccine is not up to date. - Social history:: Smoking status: Patient reports the use of cigarette tobacco products, smokes one pack cigarettes per day. Patient/guardian denies using alcohol, street drugs. - Family history:: not pertinent. Screenin:55 Abuse screen: Denies threats or abuse. Nutritional screening: No deficits noted. sf1 Tuberculosis screening: No symptoms or risk factors identified. Fall Risk None identified. Assessment: 04:56 General: Appears in no apparent distress. comfortable, Behavior is calm, cooperative. sf1 Pain: Complains of pain in right leg Pain currently is 10 out of 10 on a pain scale. Quality of pain is described as heavy, pressure, sharp, shooting. Neuro: No deficits noted. Level of Consciousness is awake, alert, obeys commands, Oriented to person, place, time, situation, Photo Lab Manager are equal bilaterally Speech is normal. Cardiovascular: No deficits noted. Capillary refill < 3 seconds JVD is absent Patient's skin is warm and dry. Respiratory: Airway is patent Trachea midline Respiratory effort is even, unlabored, Respiratory pattern is regular, symmetrical. GI: No deficits noted. No signs and/or symptoms were reported involving the gastrointestinal system. : No deficits noted. No signs and/or symptoms were reported regarding the genitourinary system. EENT: No deficits noted. No signs and/or symptoms were reported regarding the EENT system. Derm: No deficits noted. No signs and/or symptoms reported regarding the dermatologic system. Skin is intact, is healthy with good turgor. Musculoskeletal: Amputation of left leg. Vital Signs: 02:51 BP 147 / 89; Pulse 102; Resp 18; Temp 97.2; Pulse Ox 98% ; Weight 64.41 kg; Height 5 sf1 ft. 4 in. (162.56 cm); Pain 10/10; 02:51 Body Mass Index 24.37 (64.41 kg, 162.56 cm) sf1 ED Course: 02:29 Patient arrived in ED. ja2 02:53 Triage completed. sf1 02:55 Arm band placed on left wrist. sf1 02:57 Isidro Villa MD is Attending Physician. chasity 03:57 Johanna Rock RN is Primary Nurse. sf1 04:56 Patient has correct armband on for positive identification. Call light in reach. sf1 05:04 Inserted saline lock: 24 gauge in right wrist, using aseptic technique. tw5 05:27 Hip Right 2 View XRAY In Process Unspecified. EDMS 07:25 No provider procedures requiring assistance completed. IV discontinued, intact, vg1 bleeding controlled, No redness/swelling at site. Pressure dressing applied. Administered Medications: 04:55 Drug: Zofran (Ondansetron) 4 mg Route: IVP; Site: left forearm; sf1 04:55 Follow up: Response: No adverse reaction sf1 05:01 Not Given (Other Intervention Used): morphine 4 mg IVP once; RASS on ADMIN: Combtv4, tw5 Very Agttd3, Agttd2, Rstlss1, AlertClm0, Drwsy-1, Lt Sdtn-2, Mod Sdtn-3, Dp Sdtn-4, UnArsble-5 05:02 Not Given (Other Intervention Used): morphine 10 mg IM once; RASS on ADMIN: Combtv4, tw5 Very Agttd3, Agttd2, Rstlss1, AlertClm0, Drwsy-1, Lt Sdtn-2, Mod Sdtn-3, Dp Sdtn-4, UnArsble-5 05:03 Drug: morphine 4 mg Route: IVP; Site: right wrist; tw5 05:11 Follow up: Response: No adverse reaction; RASS: Alert and Calm (0) sf1 05:10 Not Given (poor iv accesss): NS 0.9% 500 ml IV at bolus once sf1 05:59 Drug: NS 0.9% 1000 ml Route: IV; Rate: 1 bolus; Site: right wrist; lg3 07:01 Follow up: Response: No adverse reaction; IV Intake: 1000ml lg3 06:14 CANCELLED (Other Intervention Used): LanTUS (insulin glargine) 30 units Sub-Q once lg3 06:16 Drug: Insulin Regular Human 10 units {Co-Signature: sf1 (Johanna Rock RN).} Route: lg3 IVP; Site: right wrist; 06:17 Follow up: Response: No adverse reaction lg3 Intake: 07:01 IV: 1000ml; Total: 1000ml. lg3 Outcome: 05:52 Discharge ordered by . chasity 07:26 Discharged to home via wheelchair. vg1 07:26 Condition: good 07:26 Discharge instructions given to patient, Instructed on discharge instructions, follow up and referral plans. medication usage, Demonstrated understanding of instructions, follow-up care, medications, Prescriptions given X 1. 07:26 Patient left the ED. vg1 Signatures: Dispatcher [employer] EDIsidro Bosch MD MD cha Gibson, Lacie RN RN lg3 Kamille Eli RN RN vg1 Jill [place] Tiffany tw5 Johanna Rock RN RN sf1 Johanna Rock RN sf1
[2021-06-11] MEDS ORDERED: NA CHLORIDE 0.9% 1,000 ML ONE (05:56)
[2021-06-11 06:13] LABS: Absolute Lymphocytes (CBC) 2.4 K/uL (0.7-4.9); Hematocrit 43.4 % (36.0-45.0); Lymphocytes % 26.9 % (15.3-44.8); RBC Red Blood Cell Count 4.84 M/uL (3.86-4.86)
[2021-06-11] MEDS ORDERED: INSULIN -REGULAR HUMAN 50 UNIT/0.5 ML ML ONE (06:17)
[2021-06-11 07:34] VITALS: BP 147/89; TEMP 97.2; O2SAT 98
--- NOTE | 2021-06-11 07:47 | RAD REPORT ---
EXAM DESCRIPTION: RAD - Hip Right 2 View - 06/11/2021 5:27 am CLINICAL HISTORY: PAIN COMPARISON: No comparisons FINDINGS: Cortical step-off along the superior pubic ramus. No malalignment. Moderate right acetabul ar degenerative changes. Vascular stent overlying the right iliac bone. Above the knee amputation not ed. IMPRESSION: Possible fracture at the superior pubic ramus. Could confirm with CT if clinically indic ated.
== END 2021-06-11 07:26 | disposition home or self-care (01) ==
LOC: ER 02:26
DX: M71.551 Other bursitis, not elsewhere classified, right hip (principal); I73.9 Peripheral vascular disease, unspecified; E10.65 Type 1 diabetes mellitus with hyperglycemia; Z71.6 Tobacco abuse counseling; Z72.0 Tobacco use; I10 Essential (primary) hypertension; Z95.1 Presence of aortocoronary bypass graft; Z88.5 Allergy status to narcotic agent; Z91.048 Other nonmedicinal substance allergy status
CPT/HCPCS: 85025; 36415; 82947; 80053; 73502; 99284; J7030; J2405

== ENCOUNTER 2021-06-22 09:47 | Emergency (ER) | payer OTHER ==
--- OUTSIDE RECORDS SUMMARY | 2021-06-22 09:50 | XMS REPORT | Continuity of Care Document ---
:1970 Author Organization [facility] t Address [address] [place] [address] Care Team Providers Name Role Phone Lucas BROWN, A Primary Care Physician Lucas BROWN, A Attending Clinician Payers Payer Name Policy Type Policy Number Effective Date Expiration Date S ource Problems Condition Condition Condition Status Onset Resolution Last Treating Co mments Source Name Details Category Date Date Treatment Clinician Date UTI UTI Disease Active Univers (urinary (urinary 8-20 ity of tract tract 00:00: [place] infection) infection) 00 Me dical Branch Dizziness Dizziness Disease Active Uni vers 8-20 ity of 00:00: [address] [place] [address] Weakness Weakness Disease Active Unive rs 8-20 ity of 00:00: 00 [facility] CAD in CAD in Disease Active Univers [place] 7-05 ity of artery artery 00:00: 00 [facility] Hypoglycem Hypoglycem Disease Active U vern ia ia 6-11 ity of 00:00: 00 [facility] [place] 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 5-06 it y of on on 00:00: Medical Branch Poor Poor Disease Active Univers appetite appetite 5-06 ity of 00:00: 00 Medical Branch Hypoalbumi Hypoalbumi Disease Active U vern nemia nemia 5-06 ity of 00:00: [place] 00 Medical Branch Hyperglyce Hyperglyce Disease Active U nivers filomena filomena 4-11 ity of 00:00: [place] 00 Medical [...] ity of left hip, left hip, 00:[place] un[place] unspecifie 00 Me dical d [...] 00:00: [place] involving involving 00 Medi blanquita [place] Branch coronary coronary artery of artery of [place] heart heart without without angina angina pectoris [...] [place] incontinen incontinen 00 note Me sonu ce, ce, might be Branch female) female) different from the original. Added automatic ally from request for surgery [id number] High High Disease Active Univers cholestero cholestero it y of l l [facility] HTN HTN Disease Active Univers (hypertens (hypertens it y of ion) ion) [facility] GERD GERD Disease Active Univers (gastroeso (gastroeso it y of phageal phageal [place] reflux reflux Medical disease) disease) Branch DM DM Disease Active Univers (diabetes (diabetes ity of mellitus) mellitus) [facility] Depression Depression Disease Active U nivers ity of [facility] CVA CVA Disease Active Univers (cerebral (cerebral ity of vascular vascular [place] accident) accident) [facility] Branch CHF CHF Disease Active Univers (congestiv (congestiv it y of e heart e heart [place] failure) failure) Medica l Branch Anxiety Anxiety Disease Active Univers ity of [facility] Angina Angina Disease Active Univers pectoris pectoris ity of [facility] H/O right H/O right Disease Active Uni [...] y of on, benign [place], benign [place] [facility] Branch Hx of CABG Hx of CABG Disease Active U nivers ity of [facility] Migraines Migraines Disease Active Uni vers ity of [facility] Seizures Seizures Disease Active Unive rs ity of [facility] Unilateral Unilateral Disease Active U nivers AKA, right AKA, right it y of [facility] History of History of Problem Active C [...] [facility] Chronic Chronic Problem Active [facility] pain pain [facility] - disorder disorder Memori a l [facility] ent [facility] 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 [facility] current current [facility] - use of use of Memoria insulin insulin l [facility] Neuropathy Neuropathy Problem Active [facility] Depression Depression Problem Active [facility] with with [facility] - anxiety anxiety Memoria l [facility] HTN HTN Problem Active [facility] (hypertens (hypertens Charley kes - ion), ion), Memoria benign benign l [facility] Seizures Seizures Problem Active [facility] Coronary Coronary Problem Active [facility] t artery artery [facility]ukes - disease disease Memoria involving involving l coronary coronary Outpat i bypass bypass ent graft of graft of Clinic s [place] heart with heart with angina angina pectoris pectoris Dependent Dependent Problem Active [facility] on on Lukes - wheelchair wheelchair Me moria l [facility] History of History of Problem Active [facility] right right [facility] - above knee above knee Me moria amputation amputation l [facility] Allergies, Adverse Reactions, Alerts Allergy Allergy Status Severity Reaction(s) Onset Inactive Treating Comm ents Source Name Type Date Date Clinician Ketorola Propensi Active Hives Univer s c ty to 7-20 ity of Trometha adverse 00:00: [place] mine reaction 00 [facility] Tramadol Propensi Active Hives Univer s ty to 7-20 ity of adverse 00:00: [place] reaction 00 [facility] Toradol Adverse Active Info Not [facility] Reaction Available [facility] ent [facility] tramadol Adverse Active Info Not [facility] Reaction Available [facility] ent [facility] Social History Social Habit Start Date Stop Date Quantity Comments Source History of tobacco Cigarette Smoker University [facility] Exposure to Not sure University of SARS-CoV-2 (event) [facility] Alcohol intake 2021-06-21 2021-06-21 Ex-drinker [facility] 00:00:00 00:00:00 (finding) [facility] Education 2021-01-15 2021-01-15 12 [facility] 00:00:00 00:00:00 [facility] History SDOH 2020-05-08 2020-05-08 99 University o f Alcohol Frequency 00:00:00 00:00:00 [facility] History SDNV 2020-05-08 2020-05-08 99 University o f Alcohol Std Drinks 00:00:00 00:00:00 [facility] Branch History SDNV 2020-05-08 2020-05-08 99 [place] o f Alcohol Binge 00:00:00 00:00:00 [facility] [place] [facility] Branch Tobacco Comment 2020-04-03 2020-04-03 smoking since 12 Uni versity of 00:00:00 00:00:00 years old [facility] Alcohol Comment 2019-10-11 2019-10-11 rare Universit y of 00:00:00 00:00:00 [facility] Cigarettes smoked 2018-02-21 2018-02-21 Univers ity of current (pack per 00:00:00 00:00:00 [facility] ) - Reported Branch Tobacco use and 2018-02-21 2018-02-21 Never used Universit y of exposure 00:00:00 00:00:00 [facility] Sex [birth year] At [birth year] Universit y of 00:00:00 00:00:00 [facility] Smoking Status Start Date Stop Date Source Current every day smoker 2018-02-21 00:00:00 Uni versity of [facility] Medications Ordered Filled Start Stop Current Ordering Indication Dosage Frequency Signature Comments Components Source Medication Medication Date Date Medication? Clinician (SIG) Name Name MIRTAZAPINE 2020-05 Yes [id number] 15mg TAKE 1 Univers 15 mg 2-20 TABLET BY ity of tablet 00:00: MOUTH AT [place] 00 BEDTIME Medical Branch gabapentin 2020- Yes [id number] 800mg Take 1 Univers 800 mg 8-20 tablet by ity of tablet 00:00: mouth 3 [place] 00 (three) Medical times Branch daily. ondansetron Yes [id number] 4mg Take 1 Univers 4 mg 8-06 tablet by ity of disintegrat 00:00: mouth [place] ing tablet 00 every 8 Medica l (eight) Branch hours as needed for Nausea and Vomiting (N/V). aspirin 81 2020- Yes [id number] 81mg Take 1 U nivers mg chewable 7-07 tablet by ity of tablet 00:00: mouth [place] 00 daily. Medical Branch clopidogreL Yes [id number] 75mg Take 1 Univers 75 mg 7-07 tablet by ity of tablet 00:00: mouth daily. Medical Branch ezetimibe Yes [id number] 10mg Take 1 U nivers 10 mg 6-18 tablet by ity of tablet 00:00: mouth 00 daily. Medical Branch furosemide Yes [id number] 1 tablet Univers 20 mg 6-18 02 as needed ity of tablet 00:00: for leg [place] 00 swelling Medical Branch insulin NPH Yes [id number] 40U inject Univers and regular 5-12 40-50 ity of human 70-30 00:00: Units [place] (NOVOLIN 00 under the Medica l 70/30 U-100 skin 2 Branch INSULIN) (two) 100 unit/mL times (70-30) daily injection before breakfast and dinner. atorvastati Yes [id number] 80mg Take 1 Univers n 80 mg 5-06 tablet by ity of tablet 00:00: mouth at [place] 00 bedtime. Medical Branch glipiZIDE Yes Type [...] [place] 00 involving bedtime. Medica l [place] Branch coronary artery of [place] heart without angina pectoris glipiZIDE Yes Type [...] [place] 00 involving bedtime. Emanuela l [place] Branch coronary artery of [place] heart without angina pectoris ezetimibe 2020- No Uncontrolle 10mg Take 1 Univers 10 mg 09-08-14 d type 2 tablet by ity of tablet 00:00: 04:59 diabetes mouth [place] 00 :00 mellitus daily for Naveen l with 30 days. Branch hyperglycem ia insulin NPH 2020- No Uncontrolle 60U inject 60 Univers and regular 09-08 05-14 d type 2 Units it y of human 70-30 00:00: 04:59 diabetes under the [place] (NOVOLIN 00 :00 mellitus skin 2 Medic al 70/30 U-100 with (two) Branch INSULIN) hyperglycem times 100 unit/mL ia daily (70-30) before injection breakfast and dinner for 30 days. ezetimibe 2020- No Uncontrolle 10mg Take 1 Univers 10 mg 09-08-14 d type 2 tablet by ity of tablet 00:00: 04:59 diabetes mouth [place] 00 :00 mellitus daily for [place] l with 30 days. Branch hyperglycem ia insulin NPH 2020- No Uncontrolle 60U inject 60 Univers and regular 09-08-14 d type 2 Units it y of human 70-30 00:00: 04:59 diabetes under the [place] (NOVOLIN 00 :00 mellitus skin 2 Medic al 70/30 U-100 with (two) Branch INSULIN) hyperglycem times 100 unit/mL ia daily (70-30) before injection breakfast and dinner for 30 days. aspirin 81 Yes 81mg Take 1 Unive rs mg chewable 4-12 tablet by ity of tablet 23:21: mouth [place] 25 daily. Medical Branch aspirin 81 Yes 81mg Take 1 Unive rs mg chewable 4-12 tablet by ity of tablet 23:21: mouth [place] 25 daily. Medical Branch metoprolol 2020- No Coronary 50mg Take 0.5 Univers succinate 09-07- artery tablets by i ty of XL 100 mg 00:00: 04:59 disease mouth [place] 24 hr 00 :00 involving daily for Medi blanquita tablet [place] 30 days. Branch coronary artery of [place] heart without angina pectoris SITagliptin 2020- No Uncontrolle 100mg Take 1 Univers 100 mg 09-07 d type 2 tablet by ity of tablet 00:00: :59 diabetes mouth with [place] 00 :00 mellitus evening Medical with meal for Branch hyperglycem 30 days. ia metoprolol 2020- No Coronary 50mg Take 0.5 Univers succinate 09-07 artery tablets by i ty of XL 100 mg 00:00: :59 disease mouth [place] as 24 hr 00 :00 involving daily for Medi blanquita tablet [place] 30 days. Branch coronary artery of [place] heart without angina pectoris SITagliptin 2020- No Uncontrolle 100mg Take 1 Univers 100 mg 09-07 d type 2 tablet by ity of tablet 00:00: :59 diabetes mouth with [place] 00 :00 mellitus [...] 00 TWICE Medical DAILY WITH Branch MEALS pantoprazol Yes [id number] 40mg Take 1 Univers e 40 mg [...] mouth [place] 00 disease daily. Medical Branch gabapentin 2019- Yes Neuropathy 800mg Take 1 Univers 800 mg 2-22 tablet by ity of tablet 00:00: mouth 3 00 (three) Medical times Branch daily. gabapentin 2019-05 Yes Neuropathy 800mg Take 1 Univers 800 mg 2-22 tablet by ity of tablet 00:00: mouth 3 00 (three) Medical times Branch daily. clopidogreL 2019- Yes H/O right 75mg Take 1 Univers (PLAVIX) 75 3-20 coronary tablet by ity of mg tablet 00:00: artery mouth [place] 00 stent daily. Medical placement Branch clopidogreL 2019-0 Yes H/O right 75mg Take 1 Univers (PLAVIX) 75 3-20 coronary tablet by ity of mg tablet 00:00: artery mouth [place] 00 stent daily. Medical placement Branch atorvastati 2019-2020- No Coronary 80mg Take 1 Univers n 80 mg 3-20 05-06 artery tablet by ity of tablet 00:00: 00:00 disease mouth at [place] 00 :00 involving bedtime. Medica l [place] Branch coronary artery of [place] heart without angina pectoris atorvastati 2020- No Coronary 80mg Take 1 Univers n 80 mg 3-20 05-06 artery tablet by ity of tablet 00:00: 00:00 disease mouth at [place] 00 :00 involving bedtime. Medica l [place] Branch coronary artery of [place] heart without angina pectoris nitroglycer 2018-05 Yes [id number] 1 tab SL Univers in 0.4 mg 0-29 q5min up ity of sublingual 00:00: to 3 doses [place] tablet 00 PRN chest Medical pain, then Branch activate 911. nitroglycer 2018-05 Yes H/O right [...] Calcium [facility] Lexapro Lexapro Yes Dada [address] [facility] Metoprolol Metoprolol Yes Dada [address] Tartrate Tartrate Horan with food L ukes - [facility] Ranexa Ranexa Yes Dada 1 tablet [facility] Insulin Insulin Yes Dada [address] Aspart Prot Aspart Prot Horan BID Lukes - & Aspart & Aspart Memoria l [facility] Aspirin Aspirin Yes Dada [address] [facility] Gabapentin Gabapentin Yes Dada [address] [facility] Furosemide Furosemide Yes Dada [address] [facility] Duloxetine Duloxetine Yes Dada [address] HCl HCl [facility] Xanax Xanax Yes Dada [address] [facility] [facility] Clopidogrel Clopidogrel Yes Dada [address] Bisulfate Bisulfate [facility] Metformin Metformin Yes Dada [address] HCl HCl Horan with meals [facility] Pantoprazol Pantoprazol Yes Dada [address] e Sodium e Sodium [facility] Klor-Con Klor-Con Yes Dada [address] M10 M10 Horan with food [facility] Duloxetine Duloxetine Yes Dada [address] HCl HCl [facility] Levetiracet Levetiracet Yes Dada [address] am am [facility] [place] Yes Dada [address] Horan as needed [facility] Lexapro Lexapro Yes Dada [address] [facility] Atorvastati Atorvastati Yes Dada [address] n Calcium n Calcium [facility] Clopidogrel Clopidogrel Yes Dada [address] Bisulfate Bisulfate [facility] Furosemide Furosemide Yes Dada [address] [facility] Immunizations Ordered Filled Immunization Date Status Comments Sour e Immunization Name Name SARS-COV-2 COVID-19 2021-01-17 [facility] 00:00:00 [facility] Vital Signs Vital Name Observation Time Observation Value Comments Source Systolic blood 2021-06-21 22:04:00 136 mm[Hg] [facility] Diastolic blood 2021-06-21 22:04:00 81 mm[Hg] [facility] [place] Heart rate 2021-06-21 22:04:00 96 /min [facility] Oxygen saturation 2021-06-21 22:03:00 99 /min [facility] Arterial blood Medical Br anch by Pulse oximetry Heart rate 2020-10-01 20:20:00 60 /min [facility] Systolic blood 2020-10-01 20:20:00 120 mm[Hg] [facility] Medical Branch Diastolic blood 2020-10-01 20:20:00 80 mm[Hg[facility] Heart rate 2020-10-01 20:20:00 60 /min Universi [facility] Medical Branch Systolic blood 2020-10-01 20:20:00 120 mm[Hg] Univer sity [facility] pressure Medical Branch Diastolic blood 2020-10-01 20:20:00 80 mm[facility]Hg] [facility] Procedures Procedure Date / Time Performed Performing Clinician Sourc e POCT GLUCOSE 2021-06-21 22:47:00 Dev Zavala Universi [facility] (AUTOMATED) Medical Branch POCT GLUCOSE(AGE 2021-06-21 00:00:00 Dev Zavala Univers [facility] >30DAYS) Medical Branch Plan of Care Planned Activity Planned Date Details Comments Source Future Scheduled 2022 Screening for University [facility] Test 00:00:00 malignant neoplasm of Medica l Branch colon (procedure) [code = 386583567] Future Scheduled 2022 Screening for University [facility] Test 00:00:00 malignant neoplasm of Medica l Branch colon (procedure) [code = 498003003] Future Scheduled 2021-09-07 Creatinine [facility] [place] Test 00:00:00 measurement Medical Branch (procedure) [code = 25198721] Future Scheduled 2021-09-07 Creatinine [facility] [place] Test 00:00:00 measurement Medical Branch (procedure) [code = 19120271] Future Scheduled 2021-09-05 Calculated low [facility] y [facility] [place] Test 00:00:00 density lipoprotein Medical Branch cholesterol level (procedure) [code = 267784811] Future Scheduled 2021-09-05 Calculated low Universit y [facility] [place] Test 00:00:00 density lipoprotein Medical Branch cholesterol level (procedure) [code = 361555015] Future Scheduled 2021-05-08 Depression screening Uni versity of [place] Test 00:00:00 (procedure) [code = Medical Branch 286717770] Future Scheduled 2021-05-08 Depression screening Uni versity of [place] Test 00:00:00 (procedure) [code = Medical Branch 175615640] Future Scheduled 2021-03-07 Hemoglobin A1c [facility] Test 00:00:00 measurement Medical Branch (procedure) [code = 45543653] Future Scheduled 2021-03-07 Hemoglobin A1c [facility] Test 00:00:00 measurement Medical Branch (procedure) [code = 70565325] Future Scheduled 2021-01-[address] [facility] 00:00:00 (Season Ended) [code Medical Branch = INFLUENZA VACCINE (Season Ended)] Future Scheduled 2021-01-27 INFLUENZA VACCINE Univer sity [facility] Test 00:00:00 (Season Ended) [code Medical Branch = INFLUENZA VACCINE (Season Ended)] Future Scheduled 2020-10-31 Screening for [facility] Test 00:00:00 malignant neoplasm of Medica l Branch breast (procedure) [code = 457462950] Future Scheduled 2020-10-31 Screening for [facility] Test 00:00:00 malignant neoplasm of Medica l Branch breast (procedure) [code = 612393675] Future Scheduled 2020-09-25 Screening for [facility] Test 00:00:00 malignant neoplasm of Medica l Branch cervix (procedure) [code = 080509596] Future Scheduled 2020-09-25 Screening for [facility] Test 00:00:00 malignant neoplasm of Medica l Branch cervix (procedure) [code = 872286348] Future Scheduled 2020-05-10 Diabetic foot [facility] Test 00:00:00 examination Medical Branch (regime/therapy) [code = 344916737] Future Scheduled 2020-05-10 Diabetic foot [facility] Test 00:00:00 examination Medical Branch (regime/therapy) [code = 791777913] Future Scheduled 2019-09-01 Microalbumin [facility] Test 00:00:00 measurement, urine, Medical Branch quantitative (procedure) [code = 783862506] Future Scheduled 2019-09-01 Microalbumin [facility] Test 00:00:00 measurement, urine, Medical Branch quantitative (procedure) [code = 662467460] Future Scheduled 1991 DTaP,Tdap,and Td [facility] 00:[facility]:00 Vaccines (1 - Tdap) Medical Branch [code = DTaP,Tdap,and Td Vaccines (1 - Tdap)] Future Scheduled 1991 DTaP,Tdap,and Td Univers [facility] of [place] Test 00:00:00 Vaccines (1 - Tdap) Medical Branch [code = DTaP,Tdap,and Td Vaccines (1 - Tdap)] Future Scheduled 1990 Hepatitis C screening Un iversity of [place] Test 00:00:00 (procedure) [code = Medical Branch 539553988] Future Scheduled 1990 Hepatitis C screening Un [facility]vers[facility] [place] Test 00:00:00 (procedure) [code = Medical Branch 342352156] Future Scheduled 1988 SARS-CoV-2 (COVID-19) Un ivers[facility] of [place] Test 00:00:00 Vaccine (1) [code = Medical Branch SARS-CoV-2 (COVID-19) Vaccine (1)] Future Scheduled 1988 SARS-CoV-2 (COVID-19) Un ivers[facility] of [place] Test 00:00:00 Vaccine (1) [code = Medical Branch SARS-CoV-2 (COVID-19) Vaccine (1)] Future Scheduled 1982 Examination of retina Un iversity of [place] Test 00:00:00 (procedure) [code = Medical Branch 574619416] Future Scheduled 1982 Examination of retina Un ivers[facility] [place] Test 00:00:00 (procedure) [code = Medical Branch 599074031] Future Scheduled 1978 PNEUMOCOCCAL 0-64 Univer sity of [place] Test 00:00:00 YEARS COMBINED SERIES Medica l [...] Date/Time Type Type Clinicians Facility Department ID 2021-06-21 2021-06-21 Office VICKI Zavala [id number] Univers 16:00:00 16:54:48 Visit Drivy [id number] ity of [place] [id number] [place] as DILLAN?BLEA [id number] [place] sonu [address] MEDICAL OFFICE BUILDING 2020-10-01 2020-10-01 Office Lucas AKMINDY [id number] 15:08:27 16:09:31 Visit [employer]ie [employer] [id number] [place] [id number] rolandoelan [phone] [place] [id number] [address] 2018-06-27 2018-06-27 [facility] [id number] 11:57:00 11:57:00 t [employer] [facility] Medicine Outpati ent Clinics 2018-06-15 2018-06-15 [facility] [id number] 16:24:00 16:24:00 t [employer] [facility] Medicine Outpati ent Clinics 2018-06-13 2018-06-13 [facility] [id number] 13:30:00 13:30:00 t [employer] [facility] Medicine Outpati ent Clinics 2017-12-12 2017-12-12 [facility] [id number] 13:22:00 13:22:00 t [employer] [facility] Medicine Outpati ent Clinics 2017-11-20 2017-11-20 [facility] [id number] 10:30:00 10:30:00 t [employer] [facility] Medicine Outpati ent Clinics 2017-11-02 2017-11-02 [facility] [id number] 15:15:00 15:15:00 t [employer] [facility] Medicine Outpati ent Clinics Results Test Description Test Time Test Comments Results Result Comments Source POCT GLUCOSE (AUTOMATED) 2021-06-21 22:49:56 Test Item Value Reference Range Interpretation Comme nts POCT GLU (test code = 8404952956) 384 mg/dL 70-110 H Lab Interpretation (test code = 24529-5) [facility] >30DA[facility]2021-06-21 22:30:00 Test Item Value Reference Range Interpretation Comments POCT Glu (age>30days) (test code = 384 mg/dL 70-110 A 3342) Lab Interpretation (test code = Abnormal 07215-4) [facility]
--- NOTE | 2021-06-22 10:21 | EDPHYS ---
Physician Documentation [facility] Name: Karen Shah Age: 51 yrs Sex: Female : 1970 Arrival Date: 06/22/2021 Time: 09:50 Bed 28 Private MD: ED Physician Shiva Horan HPI: 06/22 10:17 This 51 yrs old Female presents to ER via Wheelchair with complaints of sp3 Abdominal and Back Pain. 10:17 51-year-old female with history of CAD, diabetes, hyperlipidemia, medication sp3 noncompliance, who presents to the ED for chief complaint constipation and have been not had a bowel movement for 4 days. Patient states that she electively stopped taking her Metformin which is giving her diarrhea and now she is having constipation. Her back pain is chronic and has not had any change in intensity. On ROS, she denies chest pain, shortness of breath, cough, fever, nausea, vomiting, or any other symptoms. She is not sure whether she is fully taking her hypertension medications or not.. 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 - Social history:: Smoking status: Patient reports the use of cigarette tobacco products, smokes one-half pack cigarettes per day. ROS: 10:18 Constitutional: Negative for fever, chills, and weight loss, Eyes: Negative for injury, sp3 pain, redness, and discharge, ENT: Negative for injury, pain, and discharge, Neck: Negative for injury, pain, and swelling, Cardiovascular: Negative for chest pain, palpitations, and edema, Respiratory: Negative for shortness of breath, cough, wheezing, and pleuritic chest pain, Back: Negative for injury and pain, : Negative for injury, bleeding, discharge, and swelling, MS/Extremity: Negative for injury and deformity, Skin: Negative for injury, rash, and discoloration, Neuro: Negative for headache, weakness, numbness, tingling, and seizure, Psych: Negative for depression, anxiety, suicide ideation, homicidal ideation, and hallucinations, Allergy/Immunology: Negative for hives, rash, and allergies, Endocrine: Negative for neck swelling, polydipsia, polyuria, polyphagia, and marked weight changes, Hematologic/Lymphatic: Negative for swollen nodes, abnormal bleeding, and unusual bruising. 10:18 All other systems are negative. Exam: 10:18 Constitutional: This is a well developed, well nourished patient who is awake, alert, sp3 and in no acute distress. Head/Face: Normocephalic, atraumatic. Eyes: Pupils equal round and reactive to light, extra-ocular motions intact. Lids and lashes normal. Conjunctiva and sclera are non-icteric and not injected. Cornea within normal limits. Periorbital areas with no swelling, redness, or edema. ENT: Nares patent. No nasal discharge, no septal abnormalities noted. External auditory canals are clear. Oropharynx with no redness, swelling, or masses, exudates, or evidence of obstruction, uvula midline. Mucous membranes moist. Neck: Trachea midline, no thyromegaly or masses palpated, and no cervical lymphadenopathy. Supple, full range of motion without nuchal rigidity, or vertebral point tenderness. No Meningismus. Chest/axilla: Normal chest wall appearance and motion. Nontender with no deformity. No lesions are appreciated. Cardiovascular: Regular rate and rhythm with a normal S1 and S2. No gallops, murmurs, or rubs. Normal PMI, no JVD. No pulse deficits. Respiratory: Lungs have equal breath sounds bilaterally, clear to auscultation and percussion. No rales, rhonchi or wheezes noted. No increased work of breathing, no retractions or nasal flaring. Abdomen/GI: Soft, non-tender, with normal bowel sounds. No distension or tympany. No guarding or rebound. No evidence of tenderness throughout. Skin: Warm, dry with normal turgor. Normal color with no rashes, no lesions, and no evidence of cellulitis. MS/ Extremity: Pulses equal, no cyanosis. Neurovascular intact. Full, normal range of motion. Neuro: Awake and alert, GCS 15, oriented to person, place, time, and situation. Cranial nerves II-XII grossly intact. Motor strength 5/5 in all extremities. Sensory grossly intact. Cerebellar exam normal. Normal gait. Vital Signs: 09:53 BP 162 / 112; Pulse 105; Resp 16; Pulse Ox 100% on R/A; Weight 64.41 kg; Height 5 ft. 4 iw in. (162.56 cm); 10:05 BP 162 / 94; Pulse 94; Resp 16; Temp 97.8(O); Pulse Ox 100% on R/A; iw 10:44 BP 133 / 96; Pulse 87; Resp 15; Pulse Ox 99% ; Pain 9/10; eo2 09:53 Body Mass Index 24.37 (64.41 kg, 162.56 cm) iw MDM: 10:07 Patient medically screened. sp3 10:19 Data reviewed: vital signs, nurses notes. ED course: 51-year-old female who presents to sp3 the ED with constipation with a history of multiple medical problems. Patient is hyperglycemic and therefore we will give 10 units of subcutaneous regular insulin. Vital signs are normal including heart rate and blood pressure has come down to 162/94. Patient has no objective signs of DKA or other metabolic abnormality. Will recommend magnesium citrate [id number] for constipation and follow-up with her PCP. No other work-up is indicated in the emergency department at this time.. Administered Medications: 10:32 Drug: Insulin Regular Human 10 units {Co-Signature: iw (Dali Nieves RN).} Route: eo2 Sub-Q; Site: left upper arm; 10:50 Follow up: Response: No adverse reaction eo2 Disposition Summary: 06/22/21 10:20 Discharge Ordered Location: Home sp3 Condition: Stable sp3 Diagnosis - Constipation, unspecified sp3 - Hyperglycemia, unspecified sp3 Followup: sp3 - With: Private Physician - When: Upon discharge from the Emergency Department - Reason: Recheck today's complaints Discharge Instructions: - Discharge Summary Sheet sp3 - Constipation, Adult sp3 - Hyperglycemia sp3 Forms: - Medication Reconciliation Form sp3 - Thank You Letter sp3 - Antibiotic Education sp3 - Prescription Opioid Use sp3 Prescriptions: - magnesium citrate - take 0.5 Container by ORAL route one time Take one half bottle today and repeat sp3 in 3 hours if no bowel movement. Follow-up with your primary care physician.; 1 Container; Refills: 0, Product Selection Permitted Signatures: Dali Nieves RN RN iw Shiva Horan MD MD sp3 Odessa Tompkins RN RN eo2 Dali Nieves RN iw Corrections: (The following items were deleted from the chart) 09:56 09:55 PMHx: Right AKA; [facility] 10:07 PMHx: Cerebrovascular accident; [facility] 10:07 PMHx: Cerebrovascular accident; [facility]
--- NOTE | 2021-06-22 10:21 | ER ---
Nurse's Notes [facility] Name: Karen Shah Age: 51 yrs Sex: Female : 1970 Arrival Date: 06/22/2021 Time: 09:50 Bed 28 Private MD: Diagnosis: Constipation, unspecified;Hyperglycemia, unspecified Presentation: 06/22 09:53 Chief complaint: Patient states: has not had a BM X 4 days, and her sugar is high, has iw had rectal bleeding when she tries to have a BM and has low back pain. Coronavirus screen: At this time, the client does not indicate any symptoms associated with coronavirus-19. Ebola Screen: Patient negative for fever greater than or equal to 101.5 degrees Fahrenheit, and additional compatible Ebola Virus Disease symptoms Patient denies exposure to infectious person. Patient denies travel to an Ebola-affected area in the 21 days before illness onset. No symptoms or risks identified at this time. Initial Sepsis Screen: Does the patient meet any 2 criteria? No. Patient's initial sepsis screen is negative. Does the patient have a suspected source of infection? No. Patient's initial sepsis screen is negative. Risk Assessment: Do you want to hurt yourself or someone else? Patient reports no desire to harm self or others. Onset of symptoms was June 18, 2021. 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 - Social history:: Smoking status: Patient reports the use of cigarette tobacco products, smokes one-half pack cigarettes per day. Screenin:21 Abuse screen: Denies threats or abuse. Denies injuries from another. Nutritional eo2 screening: No deficits noted. Tuberculosis screening: No symptoms or risk factors identified. Fall Risk None identified. Assessment: 10:21 General: Appears in no apparent distress. comfortable, Behavior is calm, cooperative. eo2 Pain: Complains of pain in lower back pain. Neuro: Level of Consciousness is awake, alert, obeys commands, Oriented to person, place, time, situation, Denies dizziness, headache. Cardiovascular: No deficits noted. Denies chest pain, shortness of breath, Heart tones S1 S2. Respiratory: No deficits noted. Airway is patent Respiratory effort is even, unlabored, Breath sounds are clear bilaterally. Denies shortness of breath. GI: Abdomen is non-distended, Bowel sounds present X 4 quads. Reports constipation, x 4 days. Musculoskeletal: Denies pain in, lower back pain. 10:58 Reassessment: Per Dr. Horan, admin insulin, monitor for 15 minutes, d/c, no repeat BG eo2 needed. Vital Signs: 09:53 BP 162 / 112; Pulse 105; Resp 16; Pulse Ox 100% on R/A; Weight 64.41 kg; Height 5 ft. 4 iw in. (162.56 cm); 10:05 BP 162 / 94; Pulse 94; Resp 16; Temp 97.8(O); Pulse Ox 100% on R/A; iw 10:44 BP 133 / 96; Pulse 87; Resp 15; Pulse Ox 99% ; Pain 9/10; eo2 09:53 Body Mass Index 24.37 (64.41 kg, 162.56 cm) iw ED Course: 09:50 Patient arrived in ED. ds1 09:55 Triage completed. iw 09:57 Odessa Tompkins, RN is Primary Nurse. eo2 09:58 Shiva Horan MD is Attending Physician. sp3 10:00 Arm band placed on. iw 10:03 Patient placed in an exam room, in the treatment room. ll1 10:10 PT BLOOD SUGAR 435 NOTIFIED RN/PHYSICIAN. kj1 10:21 Patient has correct armband on for positive identification. eo2 10:21 No provider procedures requiring assistance completed. Patient did not have IV access eo2 during this emergency room visit. Administered Medications: 10:32 Drug: Insulin Regular Human 10 units {Co-Signature: iw (Dali Nieves RN).} Route: eo2 Sub-Q; Site: left upper arm; 10:50 Follow up: Response: No adverse reaction eo2 Outcome: 10:20 Discharge ordered by . sp3 10:59 Discharged to home via wheelchair. eo2 10:59 Condition: stable 10:59 Discharge instructions given to patient, Instructed on discharge instructions, follow up and referral plans. medication usage, Demonstrated understanding of instructions, follow-up care, medications, Prescriptions given X 1. 11:00 Patient left the ED. eo2 Signatures: Vangie Velez ds1 Dali Nieves RN RN iw Chelle Chandra kj1 Flaco Steen RN RN ll1 Shiva Horan MD MD sp3 Odessa Tompkins RN RN eo2 Dali Nieves RN iw Corrections: (The following items were deleted from the chart) 09:56 09:53 Pulse 105bpm; Resp 16bpm; Pulse Ox 100% RA; 64.41 kg; Height 5 ft. 4 in.; BMI: iw 24.3; iw 09:56 09:55 PMHx: Right AKA; iw iw : 10:07 PMHx: Cerebrovascular accident; iw iw 10: 10:07 PMHx: Cerebrovascular accident; iw iw
[2021-06-22] MEDS ORDERED: INSULIN -REGULAR HUMAN 50 UNIT/0.5 ML ML ONE (10:30)
[2021-06-22 11:18] VITALS: TEMP 97.8
[2021-06-22 11:21] VITALS: BP 133/96; O2SAT 99
== END 2021-06-22 11:00 | disposition home or self-care (01) ==
LOC: ER 09:47
DX: E11.65 Type 2 diabetes mellitus with hyperglycemia (principal); K59.00 Constipation, unspecified; F17.210 Nicotine dependence, cigarettes, uncomplicated; Z88.5 Allergy status to narcotic agent; Z95.1 Presence of aortocoronary bypass graft; Z91.048 Other nonmedicinal substance allergy status
CPT/HCPCS: 82947; 96372; 99283

== ENCOUNTER 2021-07-04 18:37 | Observation (INO) | payer OTHER ==
--- OUTSIDE RECORDS SUMMARY | 2021-07-04 18:40 | XMS REPORT | Continuity of Care Document ---
:1970 Author Organization [facility] t Address [address] [place] [address] Care Team Providers Name Role Phone Luacs BROWN, A Primary Care Physician Lucas BROWN, A Attending Clinician Payers Payer Name Policy Type Policy Number Effective Date Expiration Date S ource Problems Condition Condition Condition Status Onset Resolution Last Treating Co mments Source Name Details Category Date Date Treatment Clinician Date UTI UTI Disease Active Univers (urinary (urinary 8-20 ity of tract tract 00:00: [place] infection) infection) 00 Me dical Branch Dizziness Dizziness Disease Active Uni vers 8-20 ity of 00:00: 00 [facility] Weakness Weakness Disease Active Unive rs 8-20 ity of 00:00: 00 [facility] CAD in CAD in Disease Active Univers paimiut paimiut 7-05 ity of artery artery 00:00: 00 [facility] Hypoglycem Hypoglycem Disease Active U vern ia ia 6-11 ity of 00:00: 00 Medical [place] 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 Added automatic ally from request for surgery [id number] High High Disease Active Univers cholestero cholestero it y of l l [facility] HTN HTN Disease Active Univers (hypertens (hypertens it y of ion) ion) [facility] GERD GERD Disease Active Univers (gastroeso (gastroeso it y of phageal phageal [place] reflux reflux Medical disease) disease) Branch DM DM Disease Active Univers (diabetes (diabetes ity of mellitus) mellitus) [facility] Depression Depression Disease Active U nivers ity of [facility] CVA CVA Disease Active Univers (cerebral (cerebral ity of vascular vascular [place] accident) accident) [facility] Branch CHF CHF Disease Active Univers (congestiv (congestiv it y of e heart e heart [place] failure) failure) Medica l Branch Anxiety Anxiety Disease Active Univers ity of [facility] Angina Angina Disease Active Univers pectoris pectoris ity of [facility] H/O right H/O right Disease Active Uni vers coronary coronary ity of artery artery [place] stent stent Medical placement placement Bran ch Hyperlipid Hyperlipid Disease Active U nivers emia, emia, ity of unspecifie [place]specifie [place] Medical hyperlipid hyperlipid Br anch emia type emia type Essential Essential Disease Active Uni vers hypertensi hypertensi it y of on, benign [place], benign [place] [facility] Branch Hx of CABG Hx of CABG [...] [facility] - disorder disorder Memori a l [facility] 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 [facility] current current [facility] - use of use of Memoria insulin insulin l [facility] Neuropathy Neuropathy Problem Active [facility] Depression Depression Problem Active [facility] with with [facility] - anxiety anxiety Memoria l [facility] HTN HTN Problem Active [facility] (hypertens (hypertens Charley kes - ion), ion), Memoria benign benign l [facility] Seizures Seizures Problem Active [facility] Coronary Coronary Problem Active [facility] artery artery Lukes - disease disease Memoria involving involving l coronary coronary Outpat i bypass bypass ent graft of graft of Clinic s paimiut paimiut heart with heart with angina angina pectoris pectoris Dependent Dependent Problem Active [facility] on on Lukes - wheelchair wheelchair Me moria l [facility] Clinics History of History of Problem Active [facility] right right [facility]ukes - above knee above knee Me moria amputation amputation l [facility] Allergies, Adverse Reactions, Alerts Allergy Allergy Status Severity Reaction(s) Onset Inactive Treating Comm ents Source Name Type Date Date Clinician Ketorola Propensi Active Hives Univer s c ty to 7-20 ity of Trometha adverse 00:00: [place] mine reaction 00 Medical [facility] Tramadol Propensi Active Hives Univer s ty to 7-20 ity of adverse 00:00: [place] reaction 00 [facility] Toradol Adverse Active Info Not [facility] Reaction Available [facility] tramadol Adverse Active Info Not [facility] Reaction Available [facility] Social History Social Habit Start Date Stop Date Quantity Comments Source History of tobacco Cigarette Smoker University [facility] Exposure to Not sure University of SARS-CoV-2 (event) [facility] Alcohol intake 2021-06-21 2021-06-21 Ex-drinker [facility] 00:00:00 00:00:00 (finding) [facility] Education 2021-01-15 2021-01-[address] [facility] 00:00:00 00:00:00 [facility] History SDOH 2020-05-08 2020-05-08 99 University o f Alcohol Frequency 00:00:00 00:00:00 [facility] History SDNJ 2020-05-08 2020-05-08 99 University o f Alcohol Std Drinks 00:00:00 00:00:00 [facility] Branch History SDNJ 2020-05-08 2020-05-08 99 [place] o f Alcohol Binge 00:00:00 00:00:00 [facility] Branch Tobacco Comment 2020-04-03 2020-04-03 smoking since 12 Uni versity of 00:00:00 00:00:00 years old [facility] Alcohol Comment 2019-10-11 2019-10-11 rare Universit y of 00:00:00 00:00:00 [facility] Cigarettes smoked 2018-02-21 2018-02-21 Univers ity of current (pack per 00:00:00 00:00:00 [facility] [place] [facility] ) - Reported Branch Tobacco use and [...] Clinician (SIG) Name Name MIRTAZAPINE 2020-05 Yes [id number] 15mg TAKE 1 Univers 15 mg 2-20 TABLET BY ity of tablet 00:00: MOUTH AT [place] 00 BEDTIME Medical Branch gabapentin 2020- Yes [id number] 800mg Take 1 Univers 800 mg 8-20 tablet by ity of tablet 00:00: mouth 3 [place] 00 (three) Medical times Branch daily. ondansetron Yes [id number] 4mg Take 1 Univers 4 mg 8-06 tablet by ity of disintegrat 00:00: mouth [place] ing tablet 00 every 8 Medica l (eight) Branch hours as needed for Nausea and Vomiting (N/V). aspirin 81 2020- Yes [id number] 81mg Take 1 U nivers mg chewable 7-07 tablet by ity of tablet 00:00: mouth [place] 00 daily. Medical Branch clopidogreL Yes [id number] 75mg Take 1 Univers 75 mg 7-07 tablet by ity of tablet 00:00: mouth daily. Medical Branch ezetimibe Yes [id number] 10mg Take 1 U nivers 10 mg 6-18 tablet by ity of tablet 00:00: mouth 00 daily. Medical Branch furosemide Yes [id number] 1 tablet Univers 20 mg 6-18 02 as needed ity of tablet 00:00: for leg [place] 00 swelling Medical Branch insulin NPH Yes [id number] 40U inject Univers and regular 5-12 40-50 ity of human 70-30 00:00: Units [place] (NOVOLIN 00 under the Medica l 70/30 U-100 skin 2 Branch INSULIN) (two) 100 unit/mL times (70-30) daily injection before breakfast and dinner. atorvastati Yes [id number] 80mg Take 1 Univers n 80 mg 5-06 tablet by ity of tablet 00:00: mouth at [place] 00 bedtime. Medical Branch glipiZIDE Yes Type [...] [place] 00 involving bedtime. Medica l [place] Branch coronary artery of paimiut heart without angina pectoris glipiZIDE Yes Type [...] [place] 00 involving bedtime. Emanuela l paimi[place] Branch coronary artery of paimiut heart without angina pectoris ezetimibe 2020- No [...] human 70-30 00:00: 04:59 diabetes under the [place] (NOVOLIN 00 :00 mellitus skin 2 Medic [...] human 70-30 00:00: 04:59 diabetes under the [place] (NOVOLIN 00 :00 mellitus skin 2 Medic al 70/30 U-100 with (two) Branch INSULIN) hyperglycem times 100 unit/mL ia daily (70-30) before injection breakfast and dinner for 30 days. aspirin 81 Yes 81mg Take 1 Unive rs mg chewable 4-12 tablet by ity of tablet 23:21: mouth [place] 25 daily. Medical Branch aspirin 81 Yes 81mg Take 1 Unive rs mg chewable 4-12 tablet by ity of tablet 23:21: mouth [place] 25 daily. Medical Branch metoprolol 2020- No Coronary 50mg Take 0.5 Univers succinate 09-07- artery tablets by i ty of XL 100 mg 00:00: 04:59 disease mouth Raffy as 24 hr 00 :00 involving daily for Medi blanquita tablet paimiut 30 days. Branch coronary artery of paimiut heart without angina pectoris SITagliptin 2020- No [...] :00 involving daily for Medi blanquita tablet paimiut 30 days. Branch coronary artery of paimiut heart without angina pectoris SITagliptin 2020- No [...] human 70-30 00:00: 00:00 diabetes under the [place] (NOVOLIN 00 :00 mellitus skin 2 Medic [...] human 70-30 00:00: 00:00 diabetes under the [place] (NOVOLIN 00 :00 mellitus skin 2 Medic [...] Medical DAILY WITH Branch MEALS pantoprazol Yes [id number] 40mg Take 1 Univers e 40 mg [...] as 00 :00 involving bedtime. Medica l paimiut Branch coronary artery of paimiut heart without angina pectoris atorvastati 2020- No Coronary 80mg Take 1 Univers n 80 mg 3-20 05-06 artery tablet by ity of tablet 00:00: 00:00 disease mouth at Raff[place] as 00 :00 involving bedtime. Medica l paimiut Branch coronary artery of paimiut heart without angina pectoris nitroglycer 2018-05 Yes [id number] 1 tab SL Univers in 0.4 mg [...] Calcium Horan Luke s - Memoria l [facility]ics Lexapro Lexapro Yes Dada [address] Horan [facility] Metoprolol Metoprolol Yes Dada [address] Tartrate Tartrate Horan with food L ukes - Memoria l [facility]ics Ranexa Ranexa Yes Dada [facility] Insulin Insulin Yes Dada [address] Aspart Prot Aspart Prot Horan BID Lukes - & Aspart & Aspart Memoria l [facility]ics Aspirin Aspirin Yes Dada [address] [facility] Gabapentin Gabapentin Yes Dada [address] [facility] Furosemide Furosemide Yes Dada [address] [facility] Duloxetine Duloxetine Yes Dada [address] HCl HCl Horan [facility] Xanax Xanax Yes Dada [address] [facility] Clopidogrel Clopidogrel Yes Dada [address] Bisulfate Bisulfate Horan [facility] - [facility] Metformin Metformin Yes Dada [address] HCl HCl Horan with meals [facility] Pantoprazol Pantoprazol Yes Dada [address] e Sodium e Sodium Horan [facility] Klor-Con Klor-Con Yes Dada [address] M10 M10 Horan with food [facility] Duloxetine Duloxetine Yes Dada [address] HCl HCl Horan [facility] Levetiracet Levetiracet Yes Dada [address] am am Horan [facility] [place] Yes Dada [address] Horan as needed [facility] Lexapro Lexapro Yes Dada [address] [facility] Atorvastati Atorvastati Yes Dada [address] n Calcium n Calcium Horan [facility] - [facility] Clopidogrel Clopidogrel Yes Dada [address] Bisulfate Bisulfate Horan [facility] - [facility] Furosemide Furosemide Yes Dada [address] [facility]an [facility] Immunizations Ordered Filled Immunization Date Status Comments Sour e Immunization Name Name SARS-COV-2 COVID-19 2021-01-17 Completed [facility] PFIZER VACCINE 00:00:00 [facility] Vital Signs Vital Name Observation Time Observation Value Comments Source Systolic blood 2021-06-21 22:04:00 136 mm[Hg] [facility] Diastolic blood 2021-06-21 22:04:00 81 mm[Hg] [facility] Heart rate 2021-06-21 22:04:00 96 /min [facility] Oxygen saturation 2021-06-21 22:03:00 99 /min [facility] in Arterial blood Medical Br anch by Pulse oximetry Heart rate 2020-10-01 20:20:00 60 /min [facility] Systolic blood 2020-10-01 20:20:00 120 mm[Hg] [facility] Diastolic blood 2020-10-01 20:20:00 80 mm[Hg] [facility] Heart rate 2020-10-01 20:20:00 60 /min Universi [facility] Medical Branch Systolic blood 2020-10-01 20:20:00 120 mm[Hg] Univer sity [facility] pressure Medical Branch Diastolic blood 2020-10-01 20:20:00 80 mm[Hg] [facility] Procedures Procedure Date / Time Performed Performing Clinician Sourc e POCT GLUCOSE 2021-06-21 22:47:00 Dev Zavala Universi [facility] (AUTOMATED) Medical Branch POCT GLUCOSE(AGE 2021-06-21 00:00:00 Dev Zavala Univers [facility] >30DAYS) Medical Branch Plan of Care Planned Activity Planned Date Details Comments Source Future Scheduled 2022 Screening for University [facility] Test 00:00:00 malignant neoplasm of Medica l Branch colon (procedure) [code = 734858206] Future Scheduled 2022 Screening for University [facility] Test 00:00:00 malignant neoplasm of Medica l Branch colon (procedure) [code = 684036566] Future Scheduled 2021-09-07 Creatinine [facility] [place] Test 00:00:00 measurement Medical Branch (procedure) [code = 46639214] Future Scheduled 2021-09-07 Creatinine [facility] [place] Test 00:00:00 measurement Medical Branch (procedure) [code = 06844660] Future Scheduled 2021-09-05 Calculated low [facility] [place] Test 00:00:00 density lipoprotein Medical Branch cholesterol level (procedure) [code = 501610033] Future Scheduled 2021-09-05 Calculated low [facility] y [facility] [place] Test 00:00:00 density lipoprotein Medical Branch cholesterol level (procedure) [code = 848391639] Future Scheduled 2021-05-08 Depression screening Uni versity of [place] Test 00:00:00 (procedure) [code = Medical Branch 343901244] Future Scheduled 2021-05-08 Depression screening Uni [facility] [place] Test 00:00:00 (procedure) [code = Medical Branch 146809845] Future Scheduled 2021-03-07 Hemoglobin A1c [facility] Test 00:00:00 measurement Medical Branch (procedure) [code = 09062239] Future Scheduled 2021-03-07 Hemoglobin A1c [facility] Test 00:00:00 measurement Medical Branch (procedure) [code = 27850429] Future Scheduled 2021-01-27 [facility]ZA [facility]00 (Season Ended) [code Medical Branch = INFLUENZA VACCINE (Season Ended)] Future Scheduled 2021-01-27 INFLUENZA VACCINE Univer sity [facility] Test 00:00:00 (Season Ended) [code Medical Branch = INFLUENZA VACCINE (Season Ended)] Future Scheduled 2020-10-31 Screening for [facility] Test 00:00:00 malignant neoplasm of Medica l Branch breast (procedure) [code = 095604514] Future Scheduled 2020-10-31 Screening for [facility] Test 00:00:00 malignant neoplasm of Medica l Branch breast (procedure) [code = 806423690] Future Scheduled 2020-09-25 Screening for [facility] Test 00:00:00 malignant neoplasm of Medica l Branch cervix (procedure) [code = 467065741] Future Scheduled 2020-09-25 Screening for [facility] Test 00:00:00 malignant neoplasm of Medica l Branch cervix (procedure) [code = 042970041] Future Scheduled 2020-05-10 Diabetic foot [facility] Test 00:00:00 examination Medical Branch (regime/therapy) [code = 937390953] Future Scheduled 2020-05-10 Diabetic foot [facility] Test 00:00:00 examination Medical Branch (regime/therapy) [code = 683435799] Future Scheduled 2019-09-01 Microalbumin [facility] Test 00:00:00 measurement, urine, Medical Branch quantitative (procedure) [code = 319532138] Future Scheduled 2019-09-01 Microalbumin [facility] Test 00:00:00 measurement, urine, Medical Branch quantitative (procedure) [code = 502928951] Future Scheduled 1991 DTaP,Tdap,and Td [facility] Vaccines (1 - Tdap) Medical Branch [code = DTaP,Tdap,and Td Vaccines (1 - Tdap)] Future Scheduled 1991 DTaP,Tdap,and Td Univers [facility] [place] Test 00:00:00 Vaccines (1 - Tdap) Medical Branch [code = DTaP,Tdap,and Td Vaccines (1 - Tdap)] Future Scheduled 1990 Hepatitis C screening Un iversity of [place] Test 00:00:00 (procedure) [code = Medical Branch 803653624] Future Scheduled 1990 Hepatitis C screening Un [facility] [place] Test 00:00:00 (procedure) [code = Medical Branch 096957240] Future Scheduled 1988 SARS-CoV-2 (COVID-19) Un [facility]vers[facility] [place] Test 00:00:00 Vaccine (1) [code = Medical Branch SARS-CoV-2 (COVID-19) Vaccine (1)] Future Scheduled 1988 SARS-CoV-2 (COVID-19) Un [facility]vers[facility] [place] Test 00:00:00 Vaccine (1) [code = Medical Branch SARS-CoV-2 (COVID-19) Vaccine (1)] Future Scheduled 1982 Examination of retina [facility] [place] Test 00:00:00 (procedure) [code = Medical Branch 728269057] Future Scheduled 1982 Examination of retina Un [facility] [place] Test 00:00:00 (procedure) [code = Medical Branch 774769702] Future Scheduled 1978 PNEUMOCOCCAL 0-64 Univer sity [facility] [place] Test 00:00:00 YEARS COMBINED SERIES Medica l [...] ID 2021-06-21 2021-06-21 Office VICKI Zavala [id number] Univers 16:00:00 16:54:48 Visit [employer] [id number] [id number] Raffy as DILLAN?BLEA [phone] Al sonu [address] MEDICAL OFFICE BUILDING 2020-10-01 2020-10-01 Office Lucas DEMINDY [id number] 15:08:27 16:09:31 Visit [employer] Bennie [employer] [id number] [place] [id number] rolandoelan [phone] [place] [address] [address] 2018-06-27 2018-06-27 [facility] [id number] 11:57:00 11:57:00 t [employer] [facility] Medicine Outpati ent Clinics 2018-06-15 2018-06-15 [facility] [id number] 16:24:00 16:24:00 t [employer] [facility] Medicine Outpati ent Clinics 2018-06-13 2018-06-13 [facility] [id number] 13:30:00 13:30:00 t [employer] [facility] Medicine Outpati ent Clinics 2017-12-12 2017-12-12 [facility] [id number] 13:22:00 13:22:00 t [employer] [facility] Medicine Outpati ent Clinics 2017-11-20 2017-11-20 [facility] [id number] 10:30:00 10:30:00 t [employer] [facility] Medicine Outpati ent Clinics 2017-11-02 2017-11-02 [facility] [id number] 15:15:00 15:15:00 t [employer] [facility] Medicine Outpati ent Clinics Results Test Description Test Time Test Comments Results Result Comments Source POCT GLUCOSE (AUTOMATED) 2021-06-21 22:49:56 Test Item Value Reference Range Interpretation Comme nts POCT GLU (test code = [id number]) 384 mg/dL 70-110 H Lab Interpretation (test code = 56926-3) [facility] >30DAYS[facility]2021-06-21 22:30:00 Test Item Value Reference Range Interpretation Comments POCT Glu (age>30days) (test code = 384 mg/dL 70-110 A 3342) Lab Interpretation (test code = Abnormal 76677-8) [facility]
[2021-07-04 19:57] LABS: Absolute Lymphocytes (CBC) 2.3 K/uL (0.7-4.9); Hematocrit 48.2 % (36.0-45.0); Lymphocytes % 25.9 % (15.3-44.8); RBC Red Blood Cell Count 5.41 M/uL (3.86-4.86)
[2021-07-04 20:13] LABS: Protime INR 0.93
--- NOTE | 2021-07-04 20:16 | RAD REPORT ---
EXAM DESCRIPTION: RAD - Chest Single View - 07/04/2021 8:06 pm CLINICAL HISTORY: CHEST PAIN Chest pain. COMPARISON: Chest Single View dated 05/25/2021; Chest Single View dated 05/22/2021; Chest Single Vie w dated 05/04/2021; Chest Single View dated 04/13/2021 FINDINGS: Portable technique limits examination quality. The lungs are grossly clear. The heart is normal in size. Sternotomy wires. IMPRESSION: No acute intrathoracic process suspected.
[2021-07-04] MEDS ORDERED: ONDANSETRON 4 MG/2 ML VIAL ONE (20:26)
[2021-07-04] MEDS ORDERED: MORPHINE 4 MG/ML SYR ONE (20:26)
[2021-07-04 21:53] LABS: Albumin 3.2 g/dL (3.4-5.0); Bilirubin Direct 0.1 mg/dL (0-0.2); Bilirubin Total 0.5 mg/dL (0.2-1.0); Potassium 3.6 mmol/L (3.5-5.1); Protein, Total 7.5 g/dL (6.4-8.2); Troponin High Sensitivity 4.9 pg/mL (<58.9)
--- NOTE | 2021-07-04 22:43 | EDPHYS ---
Physician Documentation [facility] Name: Karen Shah Age: 51 yrs Sex: Female : 1970 Arrival Date: 07/04/2021 Time: 18:38 Bed 15 Private MD: ED Physician Sánchez Nice HPI: 07/04 19:43 This 51 yrs old Female presents to ER via Wheelchair with complaints of Chest mh7 Pain. 19:43 The patient or guardian reports chest pain that is located primarily in the anterior mh7 chest wall, left. Onset: yesterday. The pain does not radiate. Associated signs and symptoms: Pertinent positives: shortness of breath, Pertinent negatives: abdominal pain, cough, diaphoresis, dizziness, headache, lower extremity pain, lower extremity swelling, lightheadedness, nausea, near syncope, palpitations, recent travel, syncope, vomiting. The chest pain is described as a heaviness. Duration: The patient or guardian reports multiple episodes, that are intermittent, that wax and wane, with no pattern. Modifying factors: The symptoms are alleviated by nothing. the symptoms are aggravated by nothing. Severity of pain: At its worst the pain was moderate today, in the emergency department the pain is unchanged. 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 - Social history:: Smoking status: Patient reports the use of cigarette tobacco products, smokes one pack cigarettes per day. Patient/guardian denies using alcohol. ROS: 19:43 Constitutional: Negative for fever, chills, and weight loss, Eyes: Negative for injury, mh7 pain, redness, and discharge, ENT: Negative for injury, pain, and discharge, Neck: Negative for injury, pain, and swelling, Abdomen/GI: Negative for abdominal pain, nausea, vomiting, diarrhea, and constipation, Back: Negative for injury and pain, : Negative for injury, bleeding, discharge, and swelling, MS/Extremity: Negative for injury and deformity, Skin: Negative for injury, rash, and discoloration, Neuro: Negative for headache, weakness, numbness, tingling, and seizure, Psych: Negative for depression, anxiety, suicide ideation, homicidal ideation, and hallucinations, Allergy/Immunology: Negative for hives, rash, and allergies, Endocrine: Negative for neck swelling, polydipsia, polyuria, polyphagia, and marked weight changes, Hematologic/Lymphatic: Negative for swollen nodes, abnormal bleeding, and unusual bruising. Exam: 19:43 Constitutional: This is a well developed, well nourished patient who is awake, alert, mh7 and in no acute distress. Head/Face: Normocephalic, atraumatic. Eyes: Pupils equal round and reactive to light, extra-ocular motions intact. Lids and lashes normal. Conjunctiva and sclera are non-icteric and not injected. Cornea within normal limits. Periorbital areas with no swelling, redness, or edema. Neck: Trachea midline, no thyromegaly or masses palpated, and no cervical lymphadenopathy. Supple, full range of motion without nuchal rigidity, or vertebral point tenderness. No Meningismus. Chest/axilla: Normal chest wall appearance and motion. Nontender with no deformity. No lesions are appreciated. Cardiovascular: Regular rate and rhythm with a normal S1 and S2. No gallops, murmurs, or rubs. Normal PMI, no JVD. No pulse deficits. Respiratory: Lungs have equal breath sounds bilaterally, clear to auscultation and percussion. No rales, rhonchi or wheezes noted. No increased work of breathing, no retractions or nasal flaring. Abdomen/GI: Soft, non-tender, with normal bowel sounds. No distension or tympany. No guarding or rebound. No evidence of tenderness throughout. Back: No spinal tenderness. No costovertebral tenderness. Full range of motion. Skin: Warm, dry with normal turgor. Normal color with no rashes, no lesions, and no evidence of cellulitis. 19:43 Psych: Awake, alert, with orientation to person, place and time. Behavior, mood, and affect are within normal limits. 19:43 Musculoskeletal/extremity: Extremities: noted in the Left lower extremity: AKA, Circulation is intact in all extremities. Sensation intact. 19:43 Neuro: Orientation: is normal, Mentation: is normal, Memory: is normal, Cranial nerves: grossly normal, Cerebellar function: is grossly normal, Motor: is normal, Sensation: is normal, Gait: not tested. seizure activity, is not displayed by the patient, Abnormal movements: there are no abnormal movements. Vital Signs: 19:05 BP 138 / 88; Pulse 100; Resp 18; Temp 98.6(TE); Pulse Ox 100% on R/A; Weight 64.41 kg; ld1 Height 5 ft. 4 in. (162.56 cm); Pain 10/10; 19:30 BP 142 / 90; Pulse 95; Resp 18; Pulse Ox 98% on R/A; mk 20:39 BP 110 / 81; Pulse 99; Resp 15; Pulse Ox 100% on R/A; mk 21:30 BP 145 / 86; Pulse 91; Resp 18; Pulse Ox 98% on R/A; mk 22:30 BP 130 / 85; Pulse 88; Resp 18; Pulse Ox 98% on R/A; mk 23:30 BP 130 / 85; Pulse 88; Resp 18; Pulse Ox 98% on R/A; mk 07/05 00:30 BP 135 / 88; Pulse 87; Resp 16; Pulse Ox 100% on R/A; mk 01:30 BP 129 / 90; Pulse 90; Resp 18; Pulse Ox 98% on R/A; mk 02:30 BP 127 / 81; Pulse 94; Resp 18; Pulse Ox 98% on R/A; mk 03:30 BP 113 / 75; Pulse 93; Resp 18; Pulse Ox 98% on R/A; mk 04:30 BP 111 / 78; Pulse 97; Resp 18; Pulse Ox 98% on R/A; mk 05:30 BP 107 / 76; Pulse 94; Resp 18; Pulse Ox 98% on R/A; mk 07/04 19:05 Body Mass Index 24.37 (64.41 kg, 162.56 cm) ld1 Alyssa Coma Score: 07/04 19:30 Eye Response: spontaneous(4). Verbal Response: oriented(5). Motor Response: obeys mk commands(6). Total: 15. 20:39 Eye Response: spontaneous(4). Verbal Response: oriented(5). Motor Response: obeys mk commands(6). Total: 15. 21:30 Eye Response: spontaneous(4). Verbal Response: oriented(5). Motor Response: obeys mk commands(6). Total: 15. 22:30 Eye Response: spontaneous(4). Verbal Response: oriented(5). Motor Response: obeys mk commands(6). Total: 15. 23:30 Eye Response: spontaneous(4). Verbal Response: oriented(5). Motor Response: obeys mk commands(6). Total: 15. 07/05 00:30 Eye Response: spontaneous(4). Verbal Response: oriented(5). Motor Response: obeys mk commands(6). Total: 15. 01:30 Eye Response: spontaneous(4). Verbal Response: oriented(5). Motor Response: obeys mk commands(6). Total: 15. 02:30 Eye Response: spontaneous(4). Verbal Response: oriented(5). Motor Response: obeys mk commands(6). Total: 15. 03:30 Eye Response: spontaneous(4). Verbal Response: oriented(5). Motor Response: obeys mk commands(6). Total: 15. 04:30 Eye Response: spontaneous(4). Verbal Response: oriented(5). Motor Response: obeys mk commands(6). Total: 15. 05:30 Eye Response: spontaneous(4). Verbal Response: oriented(5). Motor Response: obeys mk commands(6). Total: 15. MDM: 07/04 22:40 Differential diagnosis: abnormal EKG, acute myocardial infarction, acute pericarditis, mh7 anxiety, coronary artery disease chest wall pain, congestive heart failure costochondritis, esophagitis, gastritis, gastroesophageal reflux disease (GERD), myocarditis, pericarditis, pneumonia. HEART Score: History: Moderately Suspicious (1), ECG: Non specific repolarization disturbance / LBTB / PM (1), Age: > 45 and < 65 years (1), Risk Factors: > or = 3 Risk factors for atherosclerotic disease (2), [Hypercholesterolemia] [Hypertension] [DM] [Active Smoker] Troponin: < or = 1 x Normal Limit (0), Total Score = 5. Data reviewed: vital signs, nurses notes, old medical records, lab test result(s), cardiac enzymes, CBC, electrolytes, EKG, radiologic studies, plain films. Data interpreted: Pulse oximetry: on room air is 98 %. Interpretation: normal. Counseling: I had a detailed discussion with the patient and/or guardian regarding: the historical points, exam findings, and any diagnostic results supporting the discharge/admit diagnosis, lab results, radiology results, the need for further work-up and treatment in the hospital. Response to treatment: the patient's symptoms have mildly improved after treatment. 22:42 Patient medically screened. [facility] 07/04 19:24 Order name: Basic Metabolic Panel [facility] 07/04 19:24 Order name: CBC with Diff; Complete Time: 21:02 [facility] 07/04 19:24 Order name: LFT's [facility] 07/04 19:24 Order name: Magnesium [facility] 07/04 19:24 Order name: NT PRO-BNP [facility] 07/04 19:24 Order name: PT-INR; Complete Time: 21:02 [facility] 07/04 19:24 Order name: Troponin HS [facility] 07/04 22:39 Order name: COVID-19 SARS RT PCR (Document "Date of Onset" if Symptomatic) fl1 07/04 23:39 Order name: Glucose, Ancillary Testing [facility] 07/04 23:41 Order name: Urine Dipstick-Ancillary [facility] 07/04 23:42 Order name: Urine --Ancillary (enter results) [facility] 07/04 23:47 Order name: Urine --Ancillary [facility] 07/05 01:12 Order name: Glucose, Ancillary Testing [facility] 07/05 04:29 Order name: CBC with Automated Diff [facility] 07/04 19:24 Order name: XRAY Chest (1 view); Complete Time: 21:02 [facility] 07/04 19:24 Order name: EKG; Complete Time: 19:25 [facility] 07/04 19:24 Order name: Cardiac monitoring; Complete Time: 19:51 [facility] 07/04 19:24 Order name: EKG - Nurse/Tech; Complete Time: 19:51 [facility] 07/04 19:24 Order name: IV Saline Lock; Complete Time: 19:51 [facility] 07/04 19:24 Order name: Labs collected and sent; Complete Time: 19:51 [facility] 07/04 19:24 Order name: O2 Per Protocol; Complete Time: 19:51 7 07/04 19:24 Order name: O2 Sat Monitoring; Complete Time: 19:51 [facility] 07/05 04:58 Order name: Troponin High Sensitivity [facility] 07/05 05:06 Order name: Comprehensive Metabolic Panel [facility] 07/05 08:29 Order name: Glucose, Ancillary Testing [facility] 07/05 10:00 Order name: Troponin High Sensitivity [facility] 07/04 22:40 Order name: Urine Dipstick-Ancillary (obtain specimen); Complete Time: 23:35 mh7 Administered Medications: 20:38 Drug: morphine 4 mg Route: IVP; Site: left forearm; 07/05 06:29 Follow up: Response: No adverse reaction 07/04 20:38 Drug: Zofran (Ondansetron) 4 mg Route: IVP; Site: right forearm; 23:17 Drug: Insulin Regular Human 10 units {Co-Signature: tw5 (Alysas Sharma).} Route: IVP; Site: left forearm; 07/05 06:29 Follow up: Response: No adverse reaction; Blood sugar is lowered 07/04 23:35 Drug: Aspirin Chewable Tablet 324 mg Route: PO; 07/05 06:30 Follow up: Response: No adverse reaction Disposition Summary: 07/04/21 22:42 Hospitalization Ordered Hospitalization Status: Inpatient Admission [facility] Provider: Cory Hernandez Condition: Stable [facility] Problem: new [facility] Symptoms: have improved [facility] Bed/Room Type: Standard [facility] Location: [facility] ER HOLD(07/04/21 22:48) cg Room Assignment: ERHOLD-(07/04/21 22:48) cg Diagnosis - Chest pain, unspecified [facility] Forms: - Medication Reconciliation Form [facility] - SBAR form [facility] Signatures: Dispatcher [employer] EDMO Burton Jones FNP-C FNP-Cla1 Yumiko Eli RN RN cg Sánchez Nice MD MD Meaghan Aguilar RN RN ld1 Angela Rodriguez RN RN Alyssa Sharma tw5 Corrections: (The following items were deleted from the chart) 07/04 22:48 22:42 Telemetry/MedSurg (Inpatient) [facility] cg 22:48 22:42 mh7 cg
--- NOTE | 2021-07-04 22:43 | ER ---
Nurse's Notes [facility] Name: Karen Shah Age: 51 yrs Sex: Female : 1970 Arrival Date: 07/04/2021 Time: 18:38 Bed 15 Private MD: Diagnosis: Chest pain, unspecified Presentation: 07/04 19:05 Chief complaint: Patient states: Left sided chest pain beginning last night - ld1 intermittent. Coronavirus screen: At this time, the client does not indicate any symptoms associated with coronavirus-19. Ebola Screen: No symptoms or risks identified at this time. Initial Sepsis Screen: Does the patient meet any 2 criteria? No. Patient's initial sepsis screen is negative. Does the patient have a suspected source of infection? No. Patient's initial sepsis screen is negative. Risk Assessment: Do you want to hurt yourself or someone else? Patient reports no desire to harm self or others. Onset of symptoms was July 04, 2021. 19:05 Method Of Arrival: Wheelchair ld1 19:05 Acuity: ARIEL 3 ld1 Triage Assessment: 19:05 General: Appears in no apparent distress. comfortable, Behavior is cooperative, drowsy. ld1 Pain: Complains of pain in anterior aspect of left upper chest Pain does not radiate. Pain currently is 10 out of 10 on a pain scale. Pain began 1 day ago. Is intermittent. Neuro: Level of Consciousness is awake, alert, obeys commands, Oriented to person, place, time, situation. Cardiovascular: Capillary refill < 3 seconds Patient's skin is warm and dry. Respiratory: Airway is patent Respiratory effort is even, unlabored. WASTE HAND: 19:05 LMP N/A - Irregular menses ld1 Historical: - Allergies: 19:05 Adhesives; ld1 19:05 Toradol; ld1 19:05 tramadol; ld1 - PMHx: 19:05 angina pectoris; CVA; CAD; Diabetes - IDDM; High Cholesterol; Hypertension; Myocardial ld1 infarction; Seizures; - PSHx: 19:05 CABG x 2; section; right AKA; ld1 - Immunization history:: Adult Immunizations up to date, Client reports receiving the 2nd dose of the Covid vaccine. - Social history:: Smoking status: Patient reports the use of cigarette tobacco products, smokes one pack cigarettes per day. Patient/guardian denies using alcohol. Screenin:20 Fall Risk Fall in past 12 months (25 points). No secondary diagnosis (0 pts). IV access mk (20 points). Ambulatory Aid- None/Bed Rest/Nurse Assist (0 pts). Gait- Weak (10 pts.). Mental Status- Oriented to own ability (0 pts). Total Mccall Fall Scale indicates Low Risk Score (25-44 pts). Fall prevention measures have been instituted. Side Rails Up X 2 Placed close to Nursing Station. 23:46 Abuse screen: Denies threats or abuse. Nutritional screening: No deficits noted. mk Tuberculosis screening: No symptoms or risk factors identified. Assessment: 19:30 General: Appears in no apparent distress. unkempt, Behavior is cooperative. Pain: mk Complains of pain in chest Pain currently is 10 out of 10 on a pain scale. Quality of pain is described as sharp, Pain began suddenly, today Is lasting more than 1 hour. Alleviated by rest. Neuro: Level of Consciousness is awake, alert, obeys commands, Oriented to person, place, time, situation, Health Services Manager are equal bilaterally Gait is unsteady, unsteady r/t amputation. Speech is normal, Facial symmetry appears normal. Cardiovascular: Heart tones S1 S2 present Capillary refill < 3 seconds in bilateral fingers toes Clubbing of nail beds is absent Patient's skin is warm and dry. Pulses are 3+ in right radial artery, left radial artery and left dorsalis pedis artery Edema is absent. Chest pain. Respiratory: Airway is patent Trachea midline Respiratory effort is even, unlabored, Respiratory pattern is regular, symmetrical, Breath sounds are clear. GI: Abdomen is flat, non-distended, Bowel sounds present X 4 quads. Abd is soft and non tender X 4 quads. : No signs and/or symptoms were reported regarding the genitourinary system. Derm: Skin is intact, is healthy with good turgor, Skin is dry, Skin is pink, warm \\T\\ dry. Skin temperature is warm. Musculoskeletal: Amputation of left leg. Circulation, motion, and sensation intact. Capillary refill < 3 seconds, in bilateral fingers. toes. Range of motion: intact in all extremities. 20:30 Reassessment: Patient and/or family updated on plan of care and expected duration. Pain mk level reassessed. Patient is alert, oriented x 3, equal unlabored respirations, skin warm/dry/pink. Patient states feeling better. 21:30 Reassessment: No changes from previously documented assessment. Patient and/or family mk updated on plan of care and expected duration. Pain level reassessed. Patient is alert, oriented x 3, equal unlabored respirations, skin warm/dry/pink. 22:30 Reassessment: No changes from previously documented assessment. Patient and/or family mk updated on plan of care and expected duration. Pain level reassessed. Patient is alert, oriented x 3, equal unlabored respirations, skin warm/dry/pink. 23:30 Reassessment: No changes from previously documented assessment. Patient and/or family mk updated on plan of care and expected duration. Pain level reassessed. Patient is alert, oriented x 3, equal unlabored respirations, skin warm/dry/pink. Reassessment: Patient and/or family updated on plan of care and expected duration. Pain level reassessed. Patient is alert, oriented x 3, equal unlabored respirations, skin warm/dry/pink. Pain: Complains of pain in chest Pain currently is 8 out of 10 on a pain scale. Quality of pain is described as aching. 07/05 00:30 Reassessment: No changes from previously documented assessment. Patient and/or family mk updated on plan of care and expected duration. Pain level reassessed. Patient is alert, oriented x 3, equal unlabored respirations, skin warm/dry/pink. 01:30 Reassessment: No changes from previously documented assessment. Patient and/or family mk updated on plan of care and expected duration. Pain level reassessed. Patient is alert, oriented x 3, equal unlabored respirations, skin warm/dry/pink. 02:30 Reassessment: No changes from previously documented assessment. Patient and/or family mk updated on plan of care and expected duration. Pain level reassessed. Patient is alert, oriented x 3, equal unlabored respirations, skin warm/dry/pink. 02:30 Reassessment: No changes from previously documented assessment. Patient and/or family mk updated on plan of care and expected duration. Pain level reassessed. Patient is alert, oriented x 3, equal unlabored respirations, skin warm/dry/pink. 03:30 Reassessment: No changes from previously documented assessment. Patient and/or family mk updated on plan of care and expected duration. Pain level reassessed. Patient is alert, oriented x 3, equal unlabored respirations, skin warm/dry/pink. Pain: Complains of pain in chest Pain currently is 8 out of 10 on a pain scale. Quality of pain is described as aching, Pain began suddenly, 1 day ago. Is lasting more than 1 hour. Alleviated by medications, Current management is with this RN offered pt tylenol, pt refused. 04:30 Reassessment: No changes from previously documented assessment. Patient and/or family mk updated on plan of care and expected duration. Pain level reassessed. Patient is alert, oriented x 3, equal unlabored respirations, skin warm/dry/pink. 05:30 Reassessment: No changes from previously documented assessment. Patient and/or family mk updated on plan of care and expected duration. Pain level reassessed. Patient is alert, oriented x 3, equal unlabored respirations, skin warm/dry/pink. Reassessment:. Vital Signs: 07/04 19:05 BP 138 / 88; Pulse 100; Resp 18; Temp 98.6(TE); Pulse Ox 100% on R/A; Weight 64.41 kg; ld1 Height 5 ft. 4 in. (162.56 cm); Pain 10/10; 19:30 BP 142 / 90; Pulse 95; Resp 18; Pulse Ox 98% on R/A; mk 20:39 BP 110 / 81; Pulse 99; Resp 15; Pulse Ox 100% on R/A; mk 21:30 BP 145 / 86; Pulse 91; Resp 18; Pulse Ox 98% on R/A; mk 22:30 BP 130 / 85; Pulse 88; Resp 18; Pulse Ox 98% on R/A; mk 23:30 BP 130 / 85; Pulse 88; Resp 18; Pulse Ox 98% on R/A; mk / 00:30 BP 135 / 88; Pulse 87; Resp 16; Pulse Ox 100% on R/A; mk 01:30 BP 129 / 90; Pulse 90; Resp 18; Pulse Ox 98% on R/A; mk 02:30 BP 127 / 81; Pulse 94; Resp 18; Pulse Ox 98% on R/A; mk 03:30 BP 113 / 75; Pulse 93; Resp 18; Pulse Ox 98% on R/A; mk 04:30 BP 111 / 78; Pulse 97; Resp 18; Pulse Ox 98% on R/A; mk 05:30 BP 107 / 76; Pulse 94; Resp 18; Pulse Ox 98% on R/A; mk 02/06 19:05 Body Mass Index 24.37 (64.41 kg, 162.56 cm) ld1 [place] Coma Score: 07/04 19:30 Eye Response: spontaneous(4). Verbal Response: oriented(5). Motor Response: obeys mk commands(6). Total: 15. 20:39 Eye Response: spontaneous(4). Verbal Response: oriented(5). Motor Response: obeys mk commands(6). Total: 15. 21:30 Eye Response: spontaneous(4). Verbal Response: oriented(5). Motor Response: obeys mk commands(6). Total: 15. 22:30 Eye Response: spontaneous(4). Verbal Response: oriented(5). Motor Response: obeys mk commands(6). Total: 15. 23:30 Eye Response: spontaneous(4). Verbal Response: oriented(5). Motor Response: obeys mk commands(6). Total: 15. 07 00:30 Eye Response: spontaneous(4). Verbal Response: oriented(5). Motor Response: obeys mk commands(6). Total: 15. 01:30 Eye Response: spontaneous(4). Verbal Response: oriented(5). Motor Response: obeys mk commands(6). Total: 15. 02:30 Eye Response: spontaneous(4). Verbal Response: oriented(5). Motor Response: obeys mk commands(6). Total: 15. 03:30 Eye Response: spontaneous(4). Verbal Response: oriented(5). Motor Response: obeys mk commands(6). Total: 15. 04:30 Eye Response: spontaneous(4). Verbal Response: oriented(5). Motor Response: obeys mk commands(6). Total: 15. 05:30 Eye Response: spontaneous(4). Verbal Response: oriented(5). Motor Response: obeys mk commands(6). Total: 15. ED Course: 07/04 18:38 Patient arrived in ED. as 19:05 Arm band placed on left wrist. EKG completed in triage. Results shown to MD. EKG ld1 completed in triage. Results shown to MD. 19:07 Triage completed. ld1 19:08 Sánchez Nice MD is Attending Physician. [facility] 19:19 Angela Rodriguez, RN is Primary Nurse. mk 19:30 Patient has correct armband on for positive identification. Allergy band placed. Placed mk in gown. Bed in low position. Call light in reach. Side rails up X 1. school lunch monitor on. Pulse ox on. NIBP on. 19:30 Patient maintains SpO2 saturation greater than 95% on room air. 19:50 Basic Metabolic Panel Sent. 19:50 CBC with Diff Sent. 19:50 LFT's Sent. 19:50 Magnesium Sent. 19:50 NT PRO-BNP Sent. 19:50 PT-INR Sent. 19:50 Inserted saline lock: 22 gauge in left forearm, using aseptic technique. Blood mk collected. 19:51 Troponin HS Sent. 20:06 XRAY Chest (1 view) In Process Unspecified. EDMS 22:42 Cory Hernandez MD is Hospitalizing Provider. [facility] 23:35 COVID-19 SARS RT PCR (Document "Date of Onset" if Symptomatic) Sent. 23:44 Urine --Ancillary (enter results) Sent. 23:46 No provider procedures requiring assistance completed. Administered Medications: 20:38 Drug: morphine 4 mg Route: IVP; Site: left forearm; 07/05 06:29 Follow up: Response: No adverse reaction 07/04 20:38 Drug: Zofran (Ondansetron) 4 mg Route: IVP; Site: right forearm; 23:17 Drug: Insulin Regular Human 10 units {Co-Signature: tw5 (Alyssa Sharma).} Route: IVP; Site: left forearm; 07/05 06:29 Follow up: Response: No adverse reaction; Blood sugar is lowered 07/04 23:35 Drug: Aspirin Chewable Tablet 324 mg Route: PO; 07/05 06:30 Follow up: Response: No adverse reaction Outcome: 07/04 22:42 Decision to Hospitalize by Provider. [facility] 07/05 11:02 Discharged to home via wheelchair. cb5 Condition: stable Discharge instructions given to patient. 11:02 Patient left the ED. cb5 Signatures: Dispatcher [employer] Sandra Myers Maurice, MD MD [id number] Meaghan Dean, RN RN ld1 Angela Rodriguez, RN RN Chacha Brand, RN RN cb5 Alyssa Zachary tw5 Corrections: (The following items were deleted from the chart) 06:12 07/04 19:30 General: Appears uncomfortable, unkempt, Behavior is cooperative, [facility] 07/05 06:13 07/04 20:30 Reassessment: No changes from previously documented assessment. Patient mk and/or family updated on plan of care and expected duration. Pain level reassessed. Patient is alert, oriented x 3, equal unlabored respirations, skin warm/dry/pink. Patient states feeling better. 07/05 06:26 07/04 19:30 Cardiovascular: Heart tones S1 S2 present Capillary refill < 3 seconds in bilateral fingers toes Clubbing of nail beds is absent Patient's skin is warm and dry. Pulses are 3+ in right radial artery, right dorsalis pedis artery and left radial artery Chest pain
--- NOTE | 2021-07-04 22:55 | P.HP ---
Certification for Inpatient Patient admitted to: Observation With expected LOS: <2 Midnights Patient will require the following post-hospital care: None Practitioner: I am a practitioner with admitting privileges, knowledge of patient current condition, hospital course, and medical plan of care. Services: Services provided to patient in accordance with Admission requirements found in Title 42 Section 412.3 of the Code of Federal Regulations <Burton Jones - Last Filed: 07/04/21 22:51> Patient History Date of Service: 07/04/21 Primary Care Provider: Dr. Zavala Reason for admission: Chest pain History of Present Illness: 51-year-old female with history of chronic systolic congestive heart failure, CAD status post CABG, diabetes mellitus type 2insulin-dependent with hyperglycemia and noncompliance, history of CVA, seizure disorder hypertension hyperlipidemia depression anxiety and GERD presents emergency department for left-sided chest pain. Patient reports the pain is intermittent, began today. Patient was evaluated in the emergency department her labs were significant for hemoglobin 16.2 hematocrit 48.2 sodium 131 GFR 61 glucose 425 anion gap 10 not in DKA, Covid test pending EKG without acute ST segment changes. ED provider wishes to been to observation for chest pain rule out. 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 -: Below knee amputation 2014 -: Above knee amputation 2014 -: Eye surgery for detached retina 2016 Psychosocial/ Personal History: Patient lives at home with her family - Family History Father -: Heart disease, Hypertension, Diabetes Notes: Pt's father of an OR Mother -: Other (see notes) Notes: hyperlipidemia Brother -: Diabetes Notes: Brother recently diagnosed in 2016 Sister -: Hypertension - Social History Alcohol use: Yes CD- Drugs: No Caffeine use: No Place of Residence: Home <Burton Jones - Last Filed: 07/04/21 22:51> Date of Service: 07/04/21 <Cory Hernandez - Last Filed: 07/05/21 10:01> Allergies tramadol Allergy (Mild, Verified 12/29/18 21:16) Hives/Rash adhesive tape Allergy (Verified 12/30/18 02:54) Hives ketorolac [From Toradol] Allergy (Verified 12/29/18 21:16) Hives/Rash Home Medications: Aspirin 81 mg PO DAILY #30 tab.chew 05/16/17 Atorvastatin Calcium [Lipitor] 40 mg PO BEDTIME #30 tab 05/16/17 Clopidogrel Bisulfate [Plavix] 75 mg PO DAILY #30 tablet 05/16/17 Duloxetine HCl 30 mg PO DAILY #30 capsule.dr 05/16/17 Pantoprazole [Protonix Tab*] 40 mg PO DAILY #30 tab 05/17/17 Isosorbide Mononitrate [Isosorbide Mononitrate ER] 30 mg PO DAILY 12/31/18 Docosahexanoic AC/Epa [Fish Oil 1,000 MG*] 1 cap PO BID #60 cap 05/06/20 Folic Acid 1 mg PO DAILY #90 tablet 05/06/20 Gabapentin 800 mg PO TID 07/18/20 Metoprolol Succinate 100 mg PO DAILY 07/18/20 Alcohol Antiseptic Pads [Alcohol Swabs] 1 each TP TID #100 med..pad 07/21/20 Blood Sugar Diagnostic [Glucose Test Strip] 1 each MC TID #100 strip 07/21/20 Blood-Glucose Meter [Contour] 1 each MC TID #1 kit 07/21/20 Calcium Carbonate [Oscal*] 1,000 mg PO BID #60 tab 07/21/20 Lactobacillus Acidophilus [Acidophilus] 1 each PO TID #90 tablet 07/21/20 Lancets [Lancets Thin] 1 each MC TID #100 each 07/21/20 Ranolazine [Ranolazine ER] 500 mg PO BID #60 tab.er.12h 07/21/20 Syring-Needl,Disp,Insul,0.3 ml [Insulin Syringe] 1 each MC TID #100 disp.syrin 07/21/20 levETIRAcetam [Keppra*] 500 mg PO BID #60 tab 07/21/20 Insulin 70/30 NPH/Reg Human [Novolin 70/30*] 50 unit SQ BIDAC #1 vial 05/05/21 Lisinopril [Zestril] 5 mg PO DAILY #30 tablet 05/05/21 Metformin HCl [Glucophage*] 1,000 mg PO BIDWM #120 tab 05/05/21 Review of Systems 10-point ROS is otherwise unremarkable Cardiovascular: Chest Pain, As per HPI <Burton Jones - Last Filed: 07/04/21 22:51> Physical Examination - Physical Exam General: Alert, In no apparent distress, Oriented x3 HEENT: Atraumatic, PERRLA, Mucous membr. moist/pink, EOMI, Sclerae nonicteric Neck: Supple, 2+ carotid pulse no bruit, No LAD, Without JVD or thyroid abnormality Respiratory: Clear to auscultation bilaterally, Normal air movement Cardiovascular: Regular rate/rhythm, Normal S1 S2 Gastrointestinal: Normal bowel sounds, No tenderness Musculoskeletal: No tenderness, Other (Right AKA) Integumentary: No rashes Neurological: Normal speech, Normal strength at 5/5 x4 extr, Normal tone, Normal affect - Studies Laboratory Data (last 24 hrs) 07/04/21 19:47: PT 10.7, INR 0.93 07/04/21 19:47: WBC 8.90, Hgb 16.2 H, Hct 48.2 H, Plt Count 339 07/04/21 19:47: Sodium 131 L, Potassium 3.6, BUN 17, Creatinine 0.97, Glucose 425 H*, Total Bilirubin 0.5, AST 10 L, ALT 20, Alkaline Phosphatase 170 H <Burton Jones - Last Filed: 07/04/21 22:51> - Studies Laboratory Data (last 24 hrs) 07/04/21 19:47: PT 10.7, INR 0.93 07/04/21 19:47: WBC 8.90, Hgb 16.2 H, Hct 48.2 H, Plt Count 339 07/04/21 19:47: Sodium 131 L, Potassium 3.6, BUN 17, Creatinine 0.97, Glucose 425 H*, Magnesium 1.5, Total Bilirubin 0.5, AST 10 L, ALT 20, Alkaline Phosphatase 170 H <Cory Hernandez - Last Filed: 07/05/21 10:01> Assessment and Plan - Plan Assessment: Chest pain with history of CAD and CABG x2 rule out ACS Chronic systolic congestive heart failure Diabetes mellitus type 2insulin-dependent with hyperglycemia History of CVA Seizure disorder Hypertension Hyperlipidemia Depression GERD Plan: Chest pain with history of CAD and CABG x2 rule out ACS: Monitor on telemetry, t rend troponins continue medications including aspirin, Plavix, statin therapy and beta-blockers. Chronic systolic congestive heart failure: Appears little dry will give 500 cc NS bolus at this time. Monitor on telemetry watch for signs of volume overload. Cardiology consulted. Diabetes mellitus type 2insulin-dependent with hyperglycemia aggressive sliding scale insulin, patient takes 70/30 50 units twice daily, will decrease this to 30 units twice daily while in hospital History of CVA: Continue home medications Seizure disorder: Continue Keppra Hypertension: Home medications continued Hyperlipidemia: home medications continued Depression: Home medications continued GERD: Home medications continued DVT PPX: Lovenox Code status: Full Discharge Plan: Home Plan to discharge in: 24 Hours - Advance Directives Does patient have a Living Will: No Does patient have a Durable POA for Healthcare: No - Code Status/Comfort Care Code Status Assessed: Yes (Full code) Critical Care: No Time Spent Managing Pts Care (In Minutes): 55 <Burton Jones - Last Filed: 07/04/21 22:51> Date of Service: 07/04/21 AGREE WITH ABOVE; CHART REVIEWED AND PATIENT EXAMINED PATIENT IS CLINICALLY DOING WELL. AT THIS TIME PATIENT WAS SEEN BY CARDIOLOGY, AND THEY HAVE RECOMMENDED OUTPT WORK-UP. RETURN TO THE ER IF PAIN IN OUT OF PROPORTION. <Cory Hernandez - Last Filed: 07/05/21 10:01>
[2021-07-04] MEDS ORDERED: ASPIRIN 81 MG CHEWABLE TABLET ONE (23:20)
[2021-07-04] MEDS ORDERED: INSULIN -REGULAR HUMAN 50 UNIT/0.5 ML ML ONE (23:20)
[2021-07-04 23:41] LABS: Urine Blood 2+ (Negative); Urine Glucose 2+ (Negative); Urine Protein 1+ (Negative)
[2021-07-05] MEDS ORDERED: D50W 25 GM/50 ML SYRINGE IV PRN (03:03)
[2021-07-05] MEDS ORDERED: GLUCAGON 1 MG/VIAL IM PRN (03:03)
[2021-07-05] MEDS ORDERED: ACETAMINOPHEN 500 MG TAB PO PRN (03:03)
[2021-07-05] MEDS ORDERED: NA CHLORIDE 0.9% 1,000 ML IV SCH (03:03)
[2021-07-05] MEDS ORDERED: SODIUM CHLORIDE 0.9% 10ML INJ IV PRN (03:03)
[2021-07-05] MEDS ORDERED: ONDANSETRON 4 MG/2 ML VIAL IV PRN (03:03)
[2021-07-05 04:28] LABS: Absolute Lymphocytes (CBC) 2.1 K/uL (0.7-4.9); Hematocrit 44.9 % (36.0-45.0); Lymphocytes % 27.6 % (15.3-44.8); MPV 9.3 fL (7.6-11.3); RBC Red Blood Cell Count 5.04 M/uL (3.86-4.86)
[2021-07-05] MEDS ORDERED: NA CHLORIDE 0.9% 1,000 ML ONE (04:52)
[2021-07-05 05:00] LABS: Albumin 2.7 g/dL (3.4-5.0); Bilirubin Total 0.4 mg/dL (0.2-1.0); Protein, Total 6.4 g/dL (6.4-8.2)
[2021-07-05 05:05] VITALS: BMI 24.3
[2021-07-05 05:05] LABS: Potassium 3.3 mmol/L (3.5-5.1)
[2021-07-05] MEDS ORDERED: METOPROLOL XL 100 MG TAB PO SCH (06:00)
[2021-07-05 06:49] LABS: Magnesium 1.5
[2021-07-05] MEDS ORDERED: INSULIN -REGULAR HUMAN 50 UNIT/0.5 ML ML SQ SCH (07:30)
[2021-07-05] MEDS ORDERED: INSULIN 70/30 100 UNITS/ML SQ SCH (07:30)
[2021-07-05] MEDS ORDERED: INSULIN -REGULAR HUMAN 50 UNIT/0.5 ML ML ONE (08:24)
[2021-07-05] MEDS ORDERED: CLOPIDOGREL 75 MG TABLET ONE (08:31)
[2021-07-05] MEDS ORDERED: ASPIRIN EC 81 MG TAB PO ONE (08:31)
[2021-07-05] MEDS ORDERED: levETIRAcetam 500 MG TAB ONE (08:32)
[2021-07-05] MEDS ORDERED: ENOXAPARIN 40 MG/0.4 ML SQ ONE (08:32)
[2021-07-05] MEDS ORDERED: PANTOPRAZOLE 40 MG INJ ONE (08:32)
[2021-07-05] MEDS ORDERED: levETIRAcetam 500 MG TAB PO SCH (09:00)
[2021-07-05] MEDS ORDERED: ASPIRIN EC 81 MG TAB PO SCH (09:00)
[2021-07-05] MEDS ORDERED: ENOXAPARIN 40 MG/0.4 ML SQ SCH (09:00)
[2021-07-05] MEDS ORDERED: GABAPENTIN 400 MG CAP PO SCH (09:00)
[2021-07-05] MEDS ORDERED: ISOSORBIDE MONO SR 30 MG TAB PO SCH (09:00)
[2021-07-05] MEDS ORDERED: CLOPIDOGREL 75 MG TABLET PO SCH (09:00)
[2021-07-05] MEDS ORDERED: PANTOPRAZOLE 40 MG INJ IVP SCH (09:00)
--- NOTE | 2021-07-05 10:00 | P.DS ---
Discharge Date: 07/05/21 Primary Care Provider: Dr. Zavala Disposition: ROUTINE DISCHARGE Discharge Condition: GOOD Reason for Admission: Chest pain Consultations: CARDIOLOGY Brief History of Present Illness: 51-year-old female with history of chronic systolic congestive heart failure, CAD status post CABG, diabetes mellitus type 2insulin-dependent with hyperglycemia and noncompliance, history of CVA, seizure disorder hypertension hyperlipidemia depression anxiety and GERD presents emergency department for left-sided chest pain. Patient reports the pain is intermittent, began today. Patient was evaluated in the emergency department her labs were significant for hemoglobin 16.2 hematocrit 48.2 sodium 131 GFR 61 glucose 425 anion gap 10 not in DKA, Covid test pending EKG without acute ST segment changes. ED provider wishes to been to observation for chest pain rule out. Hospital Course: PATIENT IS CLINICALLY DOING WELL. AT THIS TIME PATIENT WAS SEEN BY CARDIOLOGY, AND THEY HAVE RECOMMENDED OUTPT WORK-UP. RETURN TO THE ER IF PAIN IN OUT OF PROPORTION. Vital Signs/Physical Exam: Temp Pulse Resp BP Pulse Ox 98.4 F 97 H 18 111/78 98 07/05/21 04:00 07/05/21 04:00 07/05/21 04:00 07/05/21 04:00 07/05/21 04:00 General: Alert, In no apparent distress, Oriented x3 Laboratory Data at Discharge: WBC 7.80 K/uL (4.3-10.9) 07/05/21 03:49 Hgb 14.8 g/dL (12.0-15.0) 07/05/21 03:49 Hct 44.9 % (36.0-45.0) 07/05/21 03:49 Plt Count 300 K/uL (152-406) 07/05/21 03:49 PT 10.7 SECONDS (9.5-12.5) 07/04/21 19:47 INR 0.93 07/04/21 19:47 Sodium 136 mmol/L (136-145) 07/05/21 03:49 Potassium 3.3 mmol/L (3.5-5.1) L 07/05/21 03:49 BUN 21 mg/dL (7-18) H 07/05/21 03:49 Creatinine 1.05 mg/dL (0.55-1.3) 07/05/21 03:49 Glucose 410 mg/dL (74-106) H* 07/05/21 03:49 Magnesium 1.5 07/04/21 19:47 Total Bilirubin 0.4 mg/dL (0.2-1.0) 07/05/21 03:49 AST 10 U/L (15-37) L 07/05/21 03:49 ALT 17 U/L (12-78) 07/05/21 03:49 Alkaline Phosphatase 145 U/L (45-117) H 07/05/21 03:49 Home Medications: Aspirin 81 mg PO DAILY #30 tab.chew 05/16/17 Atorvastatin Calcium [Lipitor] 40 mg PO BEDTIME #30 tab 05/16/17 Clopidogrel Bisulfate [Plavix] 75 mg PO DAILY #30 tablet 05/16/17 Duloxetine HCl 30 mg PO DAILY #30 capsule.dr 05/16/17 Pantoprazole [Protonix Tab*] 40 mg PO DAILY #30 tab 05/17/17 Isosorbide Mononitrate [Isosorbide Mononitrate ER] 30 mg PO DAILY 12/31/18 Docosahexanoic AC/Epa [Fish Oil 1,000 MG*] 1 cap PO BID #60 cap 05/06/20 Folic Acid 1 mg PO DAILY #90 tablet 05/06/20 Gabapentin 800 mg PO TID 07/18/20 Metoprolol Succinate 100 mg PO DAILY 07/18/20 Alcohol Antiseptic Pads [Alcohol Swabs] 1 each TP TID #100 med..pad 07/21/20 Blood Sugar Diagnostic [Glucose Test Strip] 1 each MC TID #100 strip 07/21/20 Blood-Glucose Meter [Contour] 1 each MC TID #1 kit 07/21/20 Calcium Carbonate [Oscal*] 1,000 mg PO BID #60 tab 07/21/20 Lactobacillus Acidophilus [Acidophilus] 1 each PO TID #90 tablet 07/21/20 Lancets [Lancets Thin] 1 each MC TID #100 each 07/21/20 Ranolazine [Ranolazine ER] 500 mg PO BID #60 tab.er.12h 07/21/20 Syring-Needl,Disp,Insul,0.3 ml [Insulin Syringe] 1 each MC TID #100 disp.syrin 07/21/20 levETIRAcetam [Keppra*] 500 mg PO BID #60 tab 07/21/20 Insulin 70/30 NPH/Reg Human [Novolin 70/30*] 50 unit SQ BIDAC #1 vial 05/05/21 Lisinopril [Zestril] 5 mg PO DAILY #30 tablet 05/05/21 Metformin HCl [Glucophage*] 1,000 mg PO BIDWM #120 tab 05/05/21 Physician Discharge Instructions: OK TO DC IV AND DC HOME FOLLOW-UP WITH PCP IN 1-2 WEEKS RETURN TO THE ER IF SYMPTOMS WORSENS CALL ME AT [phone] IF ANY QUESTIONS REGARDING HOSPITAL STAY FOLLO-WP WITH CARDIOLOGY IN 1-2 WEEKS Diet: AHA Activity: Fall precautions Followup: Dev Zavala MD [Primary Care Provider] - Time spent managing pt's care (in minutes): 30
[2021-07-05 10:35] VITALS: BP 128/77; TEMP 98.6
--- NOTE | 2021-07-05 11:32 | EKG ---
Test Date: 2021-07-04 Test Time: 19:25:28 Insurance Underwriter: MEASUREMENT RESULTS: Intervals: Rate: 96 MA: 148 QRSD: 80 QT: 366 QTc: 462 [place]: P: 58 MA: 148 QRS: 7 T: 40 INTERPRETIVE STATEMENTS: Normal sinus rhythm Right atrial enlargement Minimal voltage criteria for LVH, may be normal variant Anteroseptal infarct, age undetermined Abnormal ECG Compared to ECG 06/07/2021 00:04:00 Atrial abnormality now present Prolonged QT interval no longer present Myocardial infarct finding still present Electronically Signed On 07-05-21 11:30:25 PRICING [employer] by Griffin Mejia
[2021-07-05 11:38] VITALS: O2SAT 98
--- NOTE | 2021-07-05 13:31 | CON ---
Date of Consultation: 07/05/2021 Reason For Consultation: Chest pain. History Of Present Illness: Ms. Shah is 51. She is known to have history of coronary artery dise ase. Last catheterization with RCA was in 2017. She has a history of dyslipidemia, neuropathy, diab etes, hypertension. She comes in with chest pain, chest pressure that lasted about 20-30 minutes wit hout any nausea, vomiting, diaphoresis, PND, orthopnea, pedal edema, palpitations, or syncope. SC lundberg s been ruled out. She is now pain free. Past Medical History: As stated above. Also, she has a history of DVT, but apparently she only took aspirin and Plavix for that. Allergies: SHE IS ALLERGIC TO TRAMADOL AND TAPE. Review of Systems: Negative. Social History: Negative. Family History: Negative. Medications: At home include aspirin, Lipitor, Plavix, Neurontin, insulin, Imdur, lisinopril, metfor min, metoprolol, Ranexa. She also takes Keppra. Physical Examination: Vital Signs: Stable, afebrile. HEENT: Negative. Neck: Supple with no bruit. Chest: Clear. Cardiac: Revealed a regular rhythm and rate. No murmurs, gallops, or rubs. Abdomen: Benign. Extremities: Revealed no clubbing, cyanosis, or edema. Diagnostic Data: As stated earlier. Troponin is negative. EKG is normal. Impression And Plan: Stable angina in a patient with known coronary artery disease. She wants to fo llow up with Dr. Jenkins with her primary clinical project assistant. We will continue her present regimen. Consider increasing Ranexa, Imdur, or metoprolol. She can go home. She will follow up with Dr. Jenkins in the ne ar future. Her other problems including hypertension, diabetes, dyslipidemia, neuropathy, and histor y of seizure disorder are stable. Her glucose was 410 that needs to be addressed, that has been care d for by Dr. Hernandez. NB/MODL Voice ID: [id number] Report ID: [id number]
[2021-07-05 14:20] LABS: Magnesium 1.5
[2021-07-05] MEDS ORDERED: DULOXETINE 30 MG CAP PO SCH (21:00)
[2021-07-05] MEDS ORDERED: ATORVASTATIN 40 MG TAB PO SCH (21:00)
== END 2021-07-05 10:45 | disposition home or self-care (01) ==
LOC: ER 18:37 → ERHOLD 22:45
PROVIDERS: ADMIT Hospitalist; ATTEND Hospitalist
DX: I25.119 Atherosclerotic heart disease of native coronary artery with unspecified angina pectoris (principal); I11.0 Hypertensive heart disease with heart failure; I50.22 Chronic systolic (congestive) heart failure; E11.65 Type 2 diabetes mellitus with hyperglycemia; E11.40 Type 2 diabetes mellitus with diabetic neuropathy, unspecified; R56.9 Unspecified convulsions; E78.5 Hyperlipidemia, unspecified; I73.9 Peripheral vascular disease, unspecified; F32.A Depression, unspecified; F41.9 Anxiety disorder, unspecified; K21.9 Gastro-esophageal reflux disease without esophagitis; Z91.14 Patient's other noncompliance with medication regimen; Z95.1 Presence of aortocoronary bypass graft; Z86.73 Personal history of transient ischemic attack (TIA), and cerebral infarction without residual deficits; Z86.718 Personal history of other venous thrombosis and embolism; F17.210 Nicotine dependence, cigarettes, uncomplicated; Z88.6 Allergy status to analgesic agent; Z91.09 Other allergy status, other than to drugs and biological substances; Z79.02 Long term (current) use of antithrombotics/antiplatelets; Z79.82 Long term (current) use of aspirin; Z79.4 Long term (current) use of insulin; Z79.899 Other long term (current) drug therapy; Z20.822 Contact with and (suspected) exposure to COVID-19; Z82.49 Family history of ischemic heart disease and other diseases of the circulatory system; Z83.3 Family history of diabetes mellitus
CPT/HCPCS: 93005; 85025 ×2; 80048; 36415; 83735 ×2; 81025; 85610; 82947 ×3; 80076; 81003; 84484 ×3; 80053; 83880; 71045; 99285; U0003; C9113; J1650; J7030; J2405; G0378 ×2

== ENCOUNTER 2021-07-19 19:12 | Emergency (ER) | payer OTHER ==
--- OUTSIDE RECORDS SUMMARY | 2021-07-19 19:16 | XMS REPORT | Continuity of Care Document ---
:1970 Author Organization [facility] t Address [address] [place] [address] Care Team Providers Name Role Phone Lucas BROWN, A Primary Care Physician Doctor Unassigned, Name Attending Clinician Unavailable Lucas BROWN, A Attending Clinician Payers Payer Name Policy Type Policy Number Effective Date Expiration Date S ource Problems Condition Condition Condition Status Onset Resolution Last Treating Co mments Source Name Details Category Date Date Treatment Clinician Date UTI UTI Disease Active Univers (urinary (urinary 8-20 ity of tract tract 00:00: [place] infection) infection) 00 Me dical Branch Dizziness Dizziness Disease Active Uni vers 8-20 ity of 00:00: 00 Medical Branch Weakness Weakness Disease Active Unive rs 8-20 ity of 00:00: 00 Medical Branch CAD in CAD in Disease Active Univers [place] 7-05 ity of artery artery 00:00: [place] 00 Medical Branch Hypoglycem Hypoglycem Disease Active U vern ia ia 6-11 ity of 00:00: [place] 00 Medical Branch 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 5-06 it y of on on 00:00: [place] 00 Medical Branch Poor Poor Disease Active Univers [...] 00:00: [place] involving involving 00 Medi [place] Branch coronary coronary artery of artery of [place] heart heart without without angina angina pectoris [...] f urinary urinary 00:00: g of this [place] incontinen incontinen 00 note Me sonu ce, ce, might be Branch female) female) different from the original. Added automatic ally from request for surgery [id number] High High Disease Active Univers cholestero cholestero it y of l l [facility] HTN HTN Disease Active Univers (hypertens (hypertens it y of ion) ion) [facility] GERD GERD Disease Active Univers (gastroeso (gastroeso it y of phageal phageal [place] reflux reflux Medical disease) disease) Branch DM DM Disease Active Univers (diabetes (diabetes ity of mellitus) mellitus) [facility] [place] [facility] Depression Depression Disease Active U nivers ity of [facility] CVA CVA Disease Active Univers (cerebral (cerebral ity of vascular vascular [place] accident) accident) [facility] Branch CHF CHF Disease Active Univers (congestiv (congestiv it y of e heart e heart [place] failure) failure) Medica l Branch Anxiety Anxiety Disease Active Univers ity of [facility] Angina Angina Disease Active Univers pectoris pectoris ity of [facility] H/O right H/O right Disease Active Uni vers coronary coronary ity of artery artery [place] stent stent Medical placement placement Bran ch Hyperlipid Hyperlipid Disease Active U nivers emia, emia, ity of unspecifie [place]specifie [place] Medical hyperlipid hyperlipid Br anch emia type emia type Essential Essential Disease Active Uni vers hypertensi hypertensi it y of [place], benign [place], benign [place] 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 [facility] current current [facility] - use of use of Memoria insulin insulin l [facility] Neuropathy Neuropathy Problem Active [facility] Depression Depression Problem Active [...] ent graft of graft of Clinic s [place] heart with heart with angina angina pectoris pectoris Dependent Dependent Problem Active [facility] on on Lukes - wheelchair wheelchair Me moria [facility] History of History of Problem Active [facility] right right [facility] - above knee above knee Me moria amputation amputation l [facility] Allergies, Adverse Reactions, Alerts Allergy Allergy Status Severity Reaction(s) Onset Inactive Treating Comm ents Source Name Type Date Date Clinician Ketorola Propensi Active Hives Univer s c ty to 7-20 ity of Trometha adverse 00:00: [place] mine reaction 00 Medical s Branch Tramadol Propensi Active Hives Univer s ty to 7-20 ity of adverse 00:00: [place] reaction 00 Medical s Branch tramadol Adverse Active Info Not [facility] Reaction Available [facility] Toradol Adverse Active Info Not [facility] Reaction Available [facility] Social History Social Habit Start Date Stop Date Quantity Comments Source History of tobacco Cigarette Smoker University [facility] use [facility] Exposure to Not sure University of SARS-CoV-2 (event) [facility] Alcohol intake 2021-06-21 2021-06-21 Ex-drinker [facility] 00:00:00 00:00:00 (finding) [facility] Education 2021-01-15 2021-01-15 12 University of 00:00:00 00:00:00 [facility] History SDOH 2020-05-08 2020-05-08 99 University o f Alcohol Frequency 00:00:00 00:00:00 [facility] [place] [facility] edical Branch History SDOH 2020-05-08 2020-05-08 99 University o f Alcohol Std Drinks 00:00:00 00:00:00 [facility] History SDOH 2020-05-08 2020-05-08 99 University o f Alcohol Binge 00:00:00 00:00:00 [facility] Branch Tobacco Comment 2020-04-03 2020-04-03 smoking since 12 Uni versity of 00:00:00 00:00:00 years old [facility] Alcohol Comment 2019-10-11 2019-10-11 rare Universit y of 00:00:00 00:00:00 [facility] Cigarettes smoked 2018-02-21 2018-02-21 Univers ity of current (pack per 00:00:00 00:00:00 [facility] [place] [facility] ) - Reported Branch Tobacco use and 2018-02-21 2018-02-21 Never used Universit y of exposure 00:00:00 00:00:00 [facility] Sex [birth year] At [birth year] Universit y of 00:00:00 00:00:00 [facility] Smoking Status Start Date Stop Date Source Current every day smoker 2018-02-21 00:00:00 Uni versity of [facility] Medications Ordered Filled Start Stop Current Ordering Indication Dosage Frequency Signature Comments Components Source Medication Medication Date Date Medication? Clinician (SIG) Name Name MIRTAZAPINE 2020-05 Yes [id number] 15mg TAKE 1 Univers 15 mg 2-20 TABLET BY ity of tablet 00:00: MOUTH AT [place] [facility] MIRTAZAPINE 2020-05 Yes [id number] 15mg TAKE 1 Univers 15 mg 2-20 TABLET BY ity of tablet 00:00: MOUTH AT [place] [facility] MIRTAZAPINE 2020-05 Yes [id number] 15mg TAKE 1 Univers 15 mg 2-20 TABLET BY ity of tablet 00:00: MOUTH AT [place] [facility] gabapentin 2020- Yes [id number] 800mg Take 1 Univers 800 mg 8-20 tablet by ity of tablet 00:00: mouth 3 [place] (three) Medical times Branch daily. gabapentin 2020- Yes [id number] 800mg Take 1 Univers 800 mg 8-20 tablet by ity of tablet 00:00: mouth 3 [place] (three) Medical times Branch daily. gabapentin 2020-0 Yes [id number] 800mg Take 1 Univers 800 mg 8-20 tablet by ity of tablet 00:00: mouth 3 [place] 00 (three) Medical times Branch daily. ondansetron 2020-0 Yes [id number] 4mg Take 1 Univers 4 mg 8-06 tablet by ity of disintegrat 00:00: mouth [place] ing tablet 00 every 8 Medica l (eight) Branch hours as needed for Nausea and Vomiting (N/V). ondansetron 2020-0 Yes [id number] 4mg Take 1 Univers 4 mg 8-06 tablet by ity of disintegrat 00:00: mouth [place] ing tablet 00 every 8 Medica l (eight) Branch hours as needed for Nausea and Vomiting (N/V). ondansetron 2020-0 Yes [id number] 4mg Take 1 Univers 4 mg 8-06 tablet by ity of disintegrat 00:00: mouth [place] ing tablet 00 every 8 Medica l (eight) Branch hours as needed for Nausea and Vomiting (N/V). aspirin 81 2020-0 Yes [id number] 81mg Take 1 U nivers mg chewable 7-07 tablet by ity of tablet 00:00: mouth [place] 00 daily. Medical Branch clopidogreL 2020-0 Yes [id number] 75mg Take 1 Univers 75 mg 7-07 tablet by ity of tablet 00:00: mouth [place] 00 daily. Medical Branch aspirin 81 2020-0 Yes [id number] 81mg Take 1 U nivers mg chewable 7-07 tablet by ity of tablet 00:00: mouth [place] 00 daily. Medical Branch clopidogreL 2020-0 Yes [id number] 75mg Take 1 Univers 75 mg 7-07 tablet by ity of tablet 00:00: mouth [place] 00 daily. Medical Branch aspirin 81 2020-0 Yes [id number] 81mg Take 1 U nivers mg chewable 7-07 tablet by ity of tablet 00:00: mouth [place] 00 daily. Medical Branch clopidogreL 2020-0 Yes [id number] 75mg Take 1 Univers 75 mg 7-07 tablet by ity of tablet 00:00: mouth [place] 00 daily. Medical Branch ezetimibe 2020-0 Yes [id number] 10mg Take 1 U nivers 10 mg 6-18 tablet by ity of tablet 00:00: mouth [place] 00 daily. Medical Branch furosemide 2020-0 Yes [id number] 1 tablet Univers 20 mg 6-18 02 as needed ity of tablet 00:00: for leg [place] swelling Medical Branch ezetimibe 2020-0 Yes [id number] 10mg Take 1 U nivers 10 mg 6-18 tablet by ity of tablet 00:00: mouth [place] 00 daily. Medical Branch furosemide 2020-0 Yes [id number] 1 tablet Univers 20 mg 6-18 02 as needed ity of tablet 00:00: for leg swelling Medical Branch ezetimibe 2020-0 Yes [id number] 10mg Take 1 U nivers 10 mg 6-18 tablet by ity of tablet 00:00: mouth [place] 00 daily. Medical Branch furosemide 2020-0 Yes [id number] 1 tablet Univers 20 mg 6-18 02 as needed ity of tablet 00:00: for leg 00 swelling Medical Branch insulin NPH 2020-0 Yes [id number] 40U inject Univers and regular 5-12 40-50 ity of human 70-30 00:00: Units (NOVOLIN 00 under the Medica l 70/30 U-100 skin 2 Branch INSULIN) (two) 100 unit/mL times (70-30) daily injection before breakfast and dinner. insulin NPH 0 Yes [id number] 40U inject Univers and regular 5-12 40-50 ity of human 70-30 00:00: Units [place] (NOVOLIN 00 under the Medica l 70/30 U-100 skin 2 Branch INSULIN) (two) 100 unit/mL times (70-30) daily injection before breakfast and dinner. insulin NPH Yes [id number] 40U inject Univers and regular 5-12 40-50 ity of human 70-30 00:00: Units [place] (NOVOLIN 00 under the Medica l 70/30 U-100 skin 2 Branch INSULIN) (two) 100 unit/mL times (70-30) daily injection before breakfast and dinner. atorvastati 2020-0 Yes [id number] 80mg Take 1 Univers n 80 mg 5-06 tablet by ity of tablet 00:00: mouth at [place] 00 bedtime. Medical Branch atorvastati 2020-0 Yes [id number] 80mg Take 1 Univers n 80 mg 5-06 tablet by ity of tablet 00:00: mouth at [place] 00 bedtime. Medical Branch atorvastati Yes [id number] 80mg Take 1 Univers n 80 mg [...] [place] 00 involving bedtime. Medica l [place] Branch coronary artery of [place] heart without angina pectoris glipiZIDE Yes Type [...] [place] 00 involving bedtime. Medica l [place] Branch coronary artery of [place] heart without angina pectoris ezetimibe 2020- No Uncontrolle 10mg Take 1 Univers 10 mg 09-08 05-14 d type 2 tablet by ity [...] Uncontrolle 60U inject 60 Univers and regular 4- 05-14 d type 2 Units it y of human 70-30 00:00: 04:59 diabetes under the [place] (NOVOLIN 00 :00 mellitus skin 2 Medic [...] [place] 25 daily. Medical Branch metoprolol 2020- No Coronary 50mg Take 0.5 Univers succinate 09-07-13 artery tablets by i ty of XL 100 mg 00:00: 04:59 disease mouth [place] 24 hr 00 :00 involving daily for Medi blanquita tablet [place] 30 days. Branch coronary artery of [place] heart without angina pectoris SITagliptin 2020- No [...] :00 involving daily for Medi [place] tablet [place] 30 days. Branch coronary artery of [place] heart without angina pectoris SITagliptin 2020- No Uncontrolle 100mg Take 1 Univers 100 mg 09-07 05-13 d type 2 tablet by ity of tablet 00:00: 04:59 diabetes mouth with [place] 00 :00 mellitus evening Medical with meal for Branch hyperglycem 30 days. ia insulin NPH 2020- No Uncontrolle 90U inject 90 Univers and regular - 05-06 d type 2 Units it y of human 70-30 00:00: 00:00 diabetes under the [place] (NOVOLIN 00 :00 mellitus skin 2 Medic al 70/30 U-100 with (two) Branch INSULIN) hyperglycem times 100 unit/mL ia daily (70-30) before injection breakfast and dinner for 30 days. glipiZIDE 2020- No Uncontrolle 10mg Take 1 Univers 10 mg 09-07 05-06 d type 2 tablet by ity of tablet 00:00: 00:00 diabetes mouth 2 [place] 00 :00 mellitus (two) Medical with times Branch hyperglycem daily ia before breakfast and dinner for 30 days. insulin NPH 2020- No Uncontrolle 90U inject 90 Univers and regular 09-07 05-06 d type 2 Units it y of human 70-30 00:00: 00:00 diabetes under the [place] (NOVOLIN 00 :00 mellitus skin 2 Medic [...] TWICE Medical DAILY WITH Branch MEALS pantoprazol 0 Yes [id number] 40mg Take 1 Univers e 40 mg EC 1-11 tablet by ity of tablet 00:00: mouth 00 daily. Medical Branch pantoprazol 0 Yes [id number] 40mg Take 1 Univers e 40 mg EC 1-11 tablet by ity of tablet 00:00: mouth 00 daily. Medical Branch pantoprazol 0 Yes [id number] 40mg Take 1 Univers e 40 mg EC 1-11 tablet by ity of tablet 00:00: mouth 00 daily. Medical Branch pantoprazol Yes Gastroesoph 40mg Take 1 Univers e 40 mg EC 1-11 ageal tablet by ity of tablet 00:00: reflux mouth 00 disease daily. Medical Branch pantoprazol 0 Yes Gastroesoph 40mg Take 1 Univers e 40 mg EC 1-11 ageal tablet by ity of tablet 00:00: reflux mouth 00 disease daily. Medical Branch gabapentin 2019- Yes Neuropathy 800mg Take 1 Univers 800 mg 2-22 tablet by ity of tablet 00:00: mouth (three) Medical times Branch daily. gabapentin 2019-05 Yes Neuropathy 800mg Take 1 Univers 800 mg 2-22 tablet by ity of tablet 00:00: mouth 3 (three) Medical times Branch daily. clopidogreL 2019-0 Yes H/O right 75mg Take 1 Univers (PLAVIX) 75 3-20 coronary tablet by ity of mg tablet 00:00: artery mouth 00 stent daily. Medical placement Branch clopidogreL 2019-0 Yes H/O right 75mg Take 1 Univers (PLAVIX) 75 3-20 coronary tablet by ity of mg tablet 00:00: artery mouth 00 stent daily. Medical placement Branch atorvastati 2019-0 2020- No Coronary 80mg Take 1 Univers n 80 mg 3-20 05-06 artery tablet by ity of tablet 00:00: 00:00 disease mouth at [place] 00 :00 involving bedtime. Medica l [place] Branch coronary artery of [place] heart without angina pectoris atorvastati 2020- No Coronary 80mg Take 1 Univers n 80 mg 3-20 05-06 artery tablet by ity of tablet 00:00: 00:00 disease mouth at [place] 00 :00 involving bedtime. Medica l [place] Branch coronary artery of [place] heart without angina pectoris nitroglycer 2018-05 Yes [id number] 1 tab SL Univers in 0.4 mg 0-29 q5min up ity of sublingual 00:00: to 3 doses [place] tablet 00 PRN chest Medical pain, then Branch activate 911. nitroglycer 2018-05 Yes [id number] 1 tab SL Univers in 0.4 mg 0-29 q5min up ity of sublingual 00:00: to 3 doses [place] tablet 00 PRN chest Medical pain, then Branch activate 911. nitroglycer 2018-05 Yes [id number] 1 tab SL Univers in 0.4 mg [...] [place] with meals [facility] Pantoprazol Pantoprazol Yes Dada [address] [facility] e Sodium e Sodium Horan [facility] Klor-Con Klor-Con Yes Dada [address] M10 M10 [place] with food [facility] Duloxetine Duloxetine Yes Dada [address] HCl HCl [facility]an [facility] Levetiracet Levetiracet Yes Dada [address] [facility] am am [facility] [place] Yes Dada [address] [facility] Horan as needed [facility] Lexapro Lexapro Yes Dada [address] [facility]an [facility] Atorvastati Atorvastati Yes Dada [...] [facility] Immunizations Ordered Filled Immunization Date Status Comments Sour e Immunization Name Name SARS-COV-2 COVID-19 2021-01-17 Completed Unive rsity of PFIZER VACCINE 00:00:00 [facility] SARS-COV-2 COVID-19 2021-01-17 Completed Unive rsity of PFIZER VACCINE 00:00:00 [place] Medi blanquita Branch SARS-COV-2 COVID-19 2021-01-17 Completed Unive rsity of PFIZER VACCINE 00:00:00 [facility] Vital Signs Vital Name Observation Time Observation Value Comments Source Systolic blood 2021-06-21 22:04:00 136 mm[Hg] Univer sit of [place] pressure Medical Branch Diastolic blood 2021-06-21 22:04:00 81 mm[Hg] [facility] Branch Heart rate 2021-06-21 22:04:00 96 /min [facility] Oxygen saturation 2021-06-21 22:03:00 99 /min Uni [facility] in Arterial blood Medical Br anch by Pulse oximetry Heart rate 2020-10-01 20:20:00 60 /min [facility] Branch Systolic blood 2020-10-01 20:20:00 120 mm[Hg] Univer [facility] pressure [facility] Branch Diastolic blood 2020-10-01 20:20:00 80 mm[facility]Hg] [facility] 2020-10-01 20:20:00 60 /min [facility] Branch Systolic blood 2020-10-01 20:20:00 120 mm[Hg] Univer [facility] pressure Medical Branch Diastolic blood 2020-10-01 20:20:00 80 mm[Hg] [facility] Procedures Procedure Date / Time Performed Performing Clinician [facility] e EXTERNAL PROVIDER 2021-07-19 06:01:00 Doctor Unassigned, No Univ [facility] RECORDS Name Medical Branch POCT GLUCOSE 2021-06-21 22:47:00 Dev Zavala [facility] (AUTOMATED) Medical Branch POCT GLUCOSE(AGE 2021-06-21 00:00:00 Dev Zavala [facility] >30DAYS) Medical Branch Plan of Care Planned Activity Planned Date Details Comments Source Future Scheduled 2022 Screening for [facility] Test 00:00:00 malignant neoplasm of Medica l Branch colon (procedure) [code = 504322169] Future Scheduled 2022 Screening for [facility] Test 00:00:00 malignant neoplasm of Medica l Branch colon (procedure) [code = 280068408] Future Scheduled 2021-09-07 Creatinine [facility] [place] Test 00:00:00 measurement Medical Branch (procedure) [code = 32784939] Future Scheduled 2021-09-07 Creatinine [facility] [place] Test 00:00:00 measurement Medical Branch (procedure) [code = 48039217] Future Scheduled 2021-09-05 Calculated low [facility] y [facility] [place] Test 00:00:00 density lipoprotein Medical Branch cholesterol level (procedure) [code = 916895484] Future Scheduled 2021-09-05 Calculated low Universit y of [place] Test 00:00:00 density lipoprotein Medical Branch cholesterol level (procedure) [code = 143703955] Future Scheduled 2021-05-08 Depression screening Uni versity of [place] Test 00:00:00 (procedure) [code = Medical Branch [id number]] Future Scheduled 2021-05-08 Depression screening Uni versity of [place] Test 00:00:00 (procedure) [code = Medical Branch 785208220] Future Scheduled 2021-03-07 Hemoglobin A1c Universit y [facility] [place] Test 00:00:00 measurement Medical Branch (procedure) [code = 82764388] Future Scheduled 2021-03-07 Hemoglobin A1c Universit y [facility] [place] Test 00:00:00 measurement Medical Branch (procedure) [code = 25899781] Future Scheduled 2021-01-27 INFLUENZA VACCINE Univer sity of [place] Test 00:00:00 (Season Ended) [code Medical Branch = INFLUENZA VACCINE (Season Ended)] Future Scheduled 2021-01-27 INFLUENZA VACCINE Univer sity of [place] Test 00:00:00 (Season Ended) [code Medical Branch = INFLUENZA VACCINE (Season Ended)] Future Scheduled 2020-10-31 Screening for [facility] [place] Test 00:00:00 malignant neoplasm of Medica l Branch breast (procedure) [code = 930493553] Future Scheduled 2020-10-31 Screening for [facility] [place] Test 00:00:00 malignant neoplasm of Medica l Branch breast (procedure) [code = 740356445] Future Scheduled 2020-09-25 Screening for [facility] [place] Test 00:00:00 malignant neoplasm of Medica l Branch cervix (procedure) [code = 974868625] Future Scheduled 2020-09-25 Screening for [facility] [place] Test 00:00:00 malignant neoplasm of Medica l Branch cervix (procedure) [code = 948885751] Future Scheduled 2020-05-10 Diabetic foot [facility] [place] Test 00:00:00 examination Medical Branch (regime/therapy) [code = 305801170] Future Scheduled 2020-05-10 Diabetic foot [facility] Test 00:00:00 examination Medical Branch (regime/therapy) [code = 133706774] Future Scheduled 2019-09-01 Microalbumin [facility] Test 00:00:00 measurement, urine, Medical Branch quantitative (procedure) [code = 288175648] Future Scheduled 2019-09-01 Microalbumin [facility] Test 00:00:00 measurement, urine, Medical Branch quantitative (procedure) [code = 142859128] Future Scheduled 1991 DTaP,Tdap,and Td Univers ity of [place] Test 00:00:00 Vaccines (1 - Tdap) Medical Branch [code = DTaP,Tdap,and Td Vaccines (1 - Tdap)] Future Scheduled 1991 DTaP,Tdap,and Td Univers ity [facility] Test 00:00:00 Vaccines (1 - Tdap) Medical Branch [code = DTaP,Tdap,and Td Vaccines (1 - Tdap)] Future Scheduled 1990 Hepatitis C screening Un iversity of [place] Test 00:00:00 (procedure) [code = Medical Branch 726876501] Future Scheduled 1990 Hepatitis C screening Un iversity of [place] Test 00:00:00 (procedure) [code = Medical Branch [id number]] Future Scheduled 1988 SARS-CoV-2 (COVID-19) Un iversity of [place] Test 00:00:00 Vaccine (1) [code = Medical Branch SARS-CoV-2 (COVID-19) Vaccine (1)] Future Scheduled 1988 SARS-CoV-2 (COVID-19) Un iversity of [place] Test 00:00:00 Vaccine (1) [code = Medical Branch SARS-CoV-2 (COVID-19) Vaccine (1)] Future Scheduled 1982 Examination of retina Un iversity of [place] Test 00:00:00 (procedure) [code = Medical Branch [id number]] Future Scheduled 1982 Examination of retina Un iversity of [place] Test 00:00:00 (procedure) [code = Medical Branch 549096389] Future Scheduled 1978 PNEUMOCOCCAL 0-64 Univer sity of [place] Test 00:00:00 YEARS COMBINED SERIES Medica l Branch (1 of 1 - PPSV23) [code = PNEUMOCOCCAL 0-64 YEARS COMBINED SERIES (1 of 1 - PPSV23)] Future Scheduled 1978 PNEUMOCOCCAL 0-64 Univyana jackson of [place] Test 00:00:00 YEARS COMBINED SERIES Medica l Branch (1 of 1 - PPSV23) [code = PNEUMOCOCCAL 0-64 YEARS COMBINED SERIES (1 of 1 - PPSV23)] Encounters Start End Encounter Admission Attending Care Care Encounter Source Date/Time Date/Time Type Type Clinicians Facility Department ID 2021-07-19 2021-07-19 Orders Doctor VAISHALI [id number] Univers 00:00:00 00:00:00 Only Unassigned, ARTURO [id number] ity of [place] [facility] [id number] [place] as [phone] [address] 2021-07-05 2021-07-05 [facility] [id number] Univers 00:00:00 00:00:00 [facility] [id number] ity of [place] [id number] Raff[place] as DILLAN?BLEA [phone] [address] OFFICE BUILDING 2021-06-21 2021-06-21 Office [facility] [id number] Univers 16:00:00 16:54:48 Visit Wondiful A HEALTH [id number] ity of [place] [id number] [place] as DILLAN?BLEA [id number] [address] OFFICE BUILDING 2020-10-01 2020-10-01 Office [facility] [id number] 15:08:27 16:09:31 Visit Wondiful A Health [id number] [place] [id number] Professio [phone] [place] [address] [address] 2018-06-27 2018-06-27 [facility] [id number] [facility] [address] 11:57:00 11:57:00 [facility] Family Medicine l Medicine Outpati ent Clinics 2018-06-15 2018-06-15 [facility] [id number] 16:24:00 16:24:00 t [facility] [place] [facility] 2018-06-13 2018-06-13 [facility] [id number] [facility] 13:30:00 13:30:00 t [facility] 2017-12-12 2017-12-12 [facility] [id number] [facility] 13:22:00 13:22:00 t [facility] 2017-11-20 2017-11-20 [facility] [id number] [facility] 10:30:00 10:30:00 t [facility] 2017-11-02 2017-11-02 [facility] [id number] [facility] 15:15:00 15:15:00 t [facility] Results Test Description Test Time Test Comments Results Result Comments Source POCT GLUCOSE (AUTOMATED) 2021-06-21 22:49:56 Test Item Value Reference Range Interpretation Comme nts POCT GLU (test code = 4035662209) 384 mg/dL 70-110 H Lab Interpretation (test code = 37609-0) [facility]normal [facility] >30DAYS[facility]2021-06-21 22:30:00 Test Item Value Reference Range Interpretation Comments POCT Glu (age>30days) (test code = 384 mg/dL 70-110 A 3342) Lab Interpretation (test code = Abnormal 53045-5) [facility]
--- NOTE | 2021-07-19 20:31 | ER ---
Nurse's Notes [facility] Name: Karen Shah Age: 51 yrs Sex: Female : 1970 Arrival Date: 07/19/2021 Time: 19:15 Bed 7 Private MD: Diagnosis: Presentation: 07/19 19:52 Chief complaint: Patient states: chestpain. Coronavirus screen: Client denies travel lg3 out of the [place] in the last 14 days. At this time, the client does not indicate any symptoms associated with coronavirus-19. Ebola Screen: No symptoms or risks identified at this time. Initial Sepsis Screen: Does the patient meet any 2 criteria? No. Patient's initial sepsis screen is negative. Does the patient have a suspected source of infection? No. Patient's initial sepsis screen is negative. Risk Assessment: Do you want to hurt yourself or someone else? Patient reports no desire to harm self or others. Onset of symptoms was July 19, 2021. 19:52 Method Of Arrival: Wheelchair lg3 19:52 Acuity: ARIEL 4 lg3 20:18 Acuity: ARIEL 3 lg3 Triage Assessment: 19:54 General: Appears in no apparent distress. comfortable, Behavior is calm, cooperative. lg3 Pain: Complains of pain in chest Pain does not radiate. Pain currently is 9 out of 10 on a pain scale. Quality of pain is described as heavy, pressure. Cardiovascular: No deficits noted. Heart tones S1 S2 Capillary refill < 3 seconds JVD is absent Patient's skin is warm and dry. Respiratory: No deficits noted. Airway is patent Trachea midline Respiratory effort is even, unlabored, Respiratory pattern is regular, symmetrical. 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 - Social history:: Smoking status: Patient reports the use of cigarette tobacco products, smokes two packs cigarettes per day. Patient/guardian denies using alcohol. Screenin:56 Abuse screen: Denies threats or abuse. Nutritional screening: No deficits noted. lg3 Tuberculosis screening: No symptoms or risk factors identified. Fall Risk Secondary diagnosis (15 points) impaired mobility. Vital Signs: 19:52 BP 111 / 73; Pulse 87; Resp 18 S; Temp 98.6; Pulse Ox 98% on R/A; Weight 63.5 kg (R); lg3 Height 5 ft. 4 in. (162.56 cm) (R); Pain 9/10; 19:52 Body Mass Index 24.03 (63.50 kg, 162.56 cm) 3 ED Course: 19:15 Patient arrived in ED. 19:53 Triage completed. 3 19:54 Arm band placed on right wrist. lg3 Administered Medications: No medications were administered Outcome: 20:31 Patient left the ED. 3 Signatures: Debbie Arroyo RN RN lg3 Poornima Archibald
[2021-07-19 20:36] VITALS: BP 111/73; TEMP 98.6; O2SAT 98
== END 2021-07-19 20:31 | disposition left against medical advice (07) ==
LOC: ER 19:12
DX: Z53.21 Procedure and treatment not carried out due to patient leaving prior to being seen by health care provider (principal)
CPT/HCPCS: 99281

== ENCOUNTER 2021-07-24 12:32 | Emergency (ER) | payer OTHER ==
--- OUTSIDE RECORDS SUMMARY | 2021-07-24 12:36 | XMS REPORT | Continuity of Care Document ---
:1970 Author Organization [facility] t Address [address] [place] [address] Care Team Providers Name Role Phone Lucas [...] (urinary 8-20 ity of tract tract 00:00: [place] infection) infection) 00 Me dical Branch Dizziness Dizziness Disease Active Uni vers 8-20 ity of 00:00: 00 Medical Branch Weakness Weakness Disease Active Unive rs 8-20 ity of 00:00: 00 Medical Branch CAD in CAD in Disease Active Univers [place] 7-05 ity of artery artery 00:00: [place] 00 Medical Branch Hypoglycem Hypoglycem Disease Active [...] 00:00: [place] involving involving 00 Medi [place] Branch coronary coronary artery of artery of [place] heart heart without without angina angina pectoris [...] f urinary urinary 00:00: g of this [place] incontinen incontinen 00 note Me sonu ce, ce, might be Branch female) female) different from the original. Added automatic ally from request for surgery [id number] High High Disease Active Univers cholestero cholestero it y of l l [facility] HTN HTN Disease Active Univers (hypertens (hypertens it y of ion) ion) [facility] GERD GERD Disease Active Univers (gastroeso (gastroeso it y of phageal phageal [place] reflux reflux Medical disease) disease) Branch DM DM Disease Active Univers (diabetes (diabetes ity of mellitus) mellitus) [facility] Depression Depression Disease Active U nivers ity of [facility] CVA CVA Disease Active Univers (cerebral (cerebral ity of vascular vascular [place] accident) accident) [facility] Branch CHF CHF Disease Active Univers (congestiv (congestiv it y of e heart e heart [place] failure) failure) Medica l Branch Anxiety Anxiety Disease Active Univers ity of [facility] Angina Angina Disease Active Univers pectoris pectoris ity of [facility] H/O right H/O right Disease Active Uni vers coronary coronary ity of artery artery [place] stent stent Medical placement placement Bran ch Hyperlipid Hyperlipid Disease Active U nivers emia, emia, ity of unspecifie [place]specifie [place] Medical hyperlipid hyperlipid Br anch emia type emia type Essential Essential Disease Active Uni vers hypertensi hypertensi it y of on, benign on, benign [facility] Hx of CABG Hx of CABG [...] [facility] Chronic Chronic Problem Active [facility] pain pain [facility] - disorder disorder Mem[facility] a l [facility] 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 [facility] current current [facility] - use of use of Memoria insulin insulin l [facility] Neuropathy Neuropathy Problem Active [facility] Depression Depression Problem Active [facility] with with [facility] - anxiety anxiety Memoria l [facility] HTN HTN Problem Active [facility] (hypertens (hypertens Charley kes - ion), ion), Memoria benign benign l [facility] Seizures Seizures Problem Active [facility] Coronary Coronary Problem Active [facility] t artery artery [facility] - disease disease Memoria involving involving l coronary coronary Outpat i bypass bypass ent graft of graft of Clinic s [place] heart with heart with angina angina pectoris pectoris Dependent Dependent Problem Active [facility] on on [facility]ukes - wheelchair wheelchair Me moria l [facility] History of History of Problem Active [facility] right right [facility] - above knee above knee Me moria amputation amputation l [facility] Allergies, Adverse Reactions, Alerts Allergy Allergy [...] [facility] Reaction Available [facility] tramadol Adverse Active Info Not [facility] t Reaction Available [facility] Social History Social Habit Start Date Stop Date Quantity Comments Source History of tobacco Cigarette Smoker University of use [facility] Exposure to Not sure University of SARS-CoV-2 (event) [facility] Alcohol intake 2021-06-21 2021-06-21 Ex-drinker [facility] 00:00:00 00:00:00 (finding) [facility] Education 2021-01-15 2021-01-15 12 University of 00:00:00 00:00:00 [facility] History SDOH 2020-05-08 2020-05-08 99 University o f Alcohol Frequency 00:00:00 00:00:00 [facility] edical Branch History SDOH 2020-05-08 2020-05-08 99 University o f Alcohol Std Drinks 00:00:00 00:00:00 [facility] History SDOH 2020-05-08 2020-05-08 99 University o f Alcohol Binge 00:00:00 00:00:00 [facility] Branch Tobacco Comment 2020-04-03 2020-04-03 smoking since 12 Uni versity of 00:00:00 00:00:00 years old [facility] Alcohol Comment 2019-10-11 2019-10-11 rare Universit y of 00:00:00 00:00:00 [facility] Cigarettes smoked 2018-02-21 2018-02-21 Univers ity of current (pack per 00:00:00 00:00:00 [facility] ) - Reported Branch Tobacco use [...] Clinician (SIG) Name Name MIRTAZAPINE 2020-05 Yes [id number] 15mg TAKE 1 Univers 15 mg 2-20 TABLET BY ity of tablet 00:00: MOUTH AT [place] [facility] MIRTAZAPINE 2020-05 Yes [id number] 15mg TAKE 1 Univers 15 mg 2-20 TABLET BY ity of tablet 00:00: MOUTH AT [place] [facility] MIRTAZAPINE 2020-05 Yes [id number] 15mg TAKE 1 Univers 15 mg 2-20 TABLET BY ity of tablet 00:00: MOUTH AT [place] [facility] gabapentin 2020- Yes [id number] 800mg Take 1 Univers 800 mg 8-20 tablet by ity of tablet 00:00: mouth 3 [place] (three) Medical times Branch daily. gabapentin 2020- Yes [id number] 800mg Take 1 Univers 800 mg 8-20 tablet by ity of tablet 00:00: mouth 3 [place] (three) Medical times Branch daily. gabapentin 2020-0 Yes [id number] 800mg Take 1 Univers 800 mg 8-20 tablet by ity of tablet 00:00: mouth 3 [place] 00 (three) Medical times Branch daily. ondansetron 2020-0 Yes [id number] 4mg Take 1 Univers 4 mg 8-06 tablet by ity of disintegrat 00:00: mouth [place] ing tablet 00 every 8 Medica l (eight) Branch hours as needed for Nausea and Vomiting (N/V). ondansetron 2020-0 Yes [id number] 4mg Take 1 Univers 4 mg 8-06 tablet by ity of disintegrat 00:00: mouth [place] ing tablet 00 every 8 Medica l (eight) Branch hours as needed for Nausea and Vomiting (N/V). ondansetron 2020-0 Yes [id number] 4mg Take 1 Univers 4 mg 8-06 tablet by ity of disintegrat 00:00: mouth [place] ing tablet 00 every 8 Medica l (eight) Branch hours as needed for Nausea and Vomiting (N/V). aspirin 81 2020-0 Yes [id number] 81mg Take 1 U nivers mg chewable 7-07 tablet by ity of tablet 00:00: mouth [place] 00 daily. Medical Branch clopidogreL 2020-0 Yes [id number] 75mg Take 1 Univers 75 mg 7-07 tablet by ity of tablet 00:00: mouth [place] 00 daily. Medical Branch aspirin 81 2020-0 Yes [id number] 81mg Take 1 U nivers mg chewable 7-07 tablet by ity of tablet 00:00: mouth [place] 00 daily. Medical Branch clopidogreL 2020-0 Yes [id number] 75mg Take 1 Univers 75 mg 7-07 tablet by ity of tablet 00:00: mouth [place] 00 daily. Medical Branch aspirin 81 2020-0 Yes [id number] 81mg Take 1 U nivers mg chewable 7-07 tablet by ity of tablet 00:00: mouth [place] 00 daily. Medical Branch clopidogreL 2020-0 Yes [id number] 75mg Take 1 Univers 75 mg 7-07 tablet by ity of tablet 00:00: mouth [place] 00 daily. Medical Branch ezetimibe 2020-0 Yes [id number] 10mg Take 1 U nivers 10 mg 6-18 tablet by ity of tablet 00:00: mouth [place] 00 daily. Medical Branch furosemide 2020-0 Yes [id number] 1 tablet Univers 20 mg 6-18 02 as needed ity of tablet 00:00: for leg [place] swelling Medical Branch ezetimibe 2020-0 Yes [id number] 10mg Take 1 U nivers 10 mg 6-18 tablet by ity of tablet 00:00: mouth [place] 00 daily. Medical Branch furosemide 2020-0 Yes [id number] 1 tablet Univers 20 mg 6-18 02 as needed ity of tablet 00:00: for leg swelling Medical Branch ezetimibe 2020-0 Yes [id number] 10mg Take 1 U nivers 10 mg 6-18 tablet by ity of tablet 00:00: mouth [place] 00 daily. Medical Branch furosemide 2020-0 Yes [id number] 1 tablet Univers 20 mg 6-18 02 as needed ity of tablet 00:00: for leg 00 swelling Medical Branch insulin NPH 2020-0 Yes [id number] 40U inject Univers and regular 5-12 40-50 ity of human 70-30 00:00: Units (NOVOLIN 00 under the Medica l 70/30 U-100 skin 2 Branch INSULIN) (two) 100 unit/mL times (70-30) daily injection before breakfast and dinner. insulin NPH 0 Yes [id number] 40U inject Univers and regular 5-12 40-50 ity of human 70-30 00:00: Units [place] (NOVOLIN 00 under the Medica l 70/30 U-100 skin 2 Branch INSULIN) (two) 100 unit/mL times (70-30) daily injection before breakfast and dinner. insulin NPH Yes [id number] 40U inject Univers and regular 5-12 40-50 ity of human 70-30 00:00: Units [place] (NOVOLIN 00 under the Medica l 70/30 U-100 skin 2 Branch INSULIN) (two) 100 unit/mL times (70-30) daily injection before breakfast and dinner. atorvastati 2020-0 Yes [id number] 80mg Take 1 Univers n 80 mg 5-06 tablet by ity of tablet 00:00: mouth at [place] 00 bedtime. Medical Branch atorvastati 2020-0 Yes [id number] 80mg Take 1 Univers n 80 mg 5-06 tablet by ity of tablet 00:00: mouth at [place] 00 bedtime. Medical Branch atorvastati Yes [id number] 80mg Take 1 Univers n 80 mg [...] [place] 00 involving bedtime. Medica l [place] Branch coronary artery of [place] heart without angina pectoris glipiZIDE Yes Type [...] [place] 00 involving bedtime. Medica l [place] Branch coronary artery of [place] heart without angina pectoris ezetimibe 2020- No [...] human 70-30 00:00: 04:59 diabetes under the [place] (NOVOLIN 00 :00 mellitus skin 2 Medic [...] :00 involving daily for Medi [place] tablet [place] 30 days. Branch coronary artery of [place] heart without angina pectoris SITagliptin 2020- No [...] :00 involving daily for Medi [place] tablet [place] 30 days. Branch coronary artery of [place] heart without angina pectoris SITagliptin 2020- No [...] human 70-30 00:00: 00:00 diabetes under the [place] (NOVOLIN 00 :00 mellitus skin 2 Medic [...] human 70-30 00:00: 00:00 diabetes under the [place] (NOVOLIN 00 :00 mellitus skin 2 Medic [...] DAILY WITH Branch MEALS pantoprazol 0 Yes [id number] 40mg Take 1 Univers e 40 mg EC 1-11 tablet by ity of tablet 00:00: mouth 00 daily. Medical Branch pantoprazol 0 Yes [id number] 40mg Take 1 Univers e 40 mg EC 1-11 tablet by ity of tablet 00:00: mouth 00 daily. Medical Branch pantoprazol 0 Yes [id number] 40mg Take 1 Univers e 40 mg [...] as 00 :00 involving bedtime. Medica l [place] Branch coronary artery of [place] heart without angina pectoris atorvastati 2020- No Coronary 80mg Take 1 Univers n 80 mg 3-20 05-06 artery tablet by ity of tablet 00:00: 00:00 disease mouth at [place] as 00 :00 involving bedtime. Medica l [place] Branch coronary artery of [place] heart without angina pectoris nitroglycer 2018-05 Yes [id number] 1 tab SL Univers in 0.4 mg 0-29 q5min up ity of sublingual 00:00: to 3 doses [place] tablet 00 PRN chest Medical pain, then Branch activate 911. nitroglycer 2018-05 Yes [id number] 1 tab SL Univers in 0.4 mg 0-29 q5min up ity of sublingual 00:00: to 3 doses [place] tablet 00 PRN chest Medical pain, then Branch activate 911. nitroglycer 2018-05 Yes [id number] 1 tab SL Univers in 0.4 mg [...] [facility] Gabapentin Gabapentin Yes Dada [address] [facility] Furosemide Furosemide Yes Dada [address] [facility] Duloxetine Duloxetine Yes Dada [address] HCl HCl [facility]an [facility] Xanax Xanax Yes Dada [address] [facility] Clopidogrel Clopidogrel Yes Dada [address] Bisulfate Bisulfate Horan [facility] Metformin Metformin Yes Dada [address] HCl HCl Horan with meals [facility] Pantoprazol Pantoprazol Yes Dada [address] e Sodium e Sodium Horan [facility] Klor-Con Klor-Con Yes Dada [address] M10 M10 Horan with food [facility] Duloxetine Duloxetine Yes Dada [address] HCl HCl [facility]an [facility] Levetiracet Levetiracet Yes Dada [address] am am Horan [facility]ics Orwell Orwell Yes Dada [address] [facility] as needed [facility] Lexapro Lexapro Yes Dada [address] [facility] [facility] Atorvastati Atorvastati Yes Dada [address] n Calcium n Calcium Horan [facility] Clopidogrel Clopidogrel Yes Dada [address] Bisulfate Bisulfate Horan [facility] Furosemide Furosemide Yes Dada [address] [facility] [facility] Immunizations Ordered Filled Immunization Date Status Comments Sour e Immunization Name Name SARS-COV-2 COVID-19 2021-01-17 Completed Unive rsity of PFIZER VACCINE 00:00:00 [facility] SARS-COV-2 COVID-19 2021-01-17 Completed Unive rsity of PFIZER VACCINE 00:00:00 [place] Medi [place] Branch SARS-COV-2 COVID-19 2021-01-17 Completed Unive rsity of PFIZER VACCINE 00:00:00 [facility] Vital Signs Vital Name Observation Time Observation Value Comments Source Systolic blood 2021-06-21 22:04:00 136 mm[Hg] Univer sit of [place] pressure Medical Branch Diastolic blood 2021-06-21 22:04:00 81 mm[Hg] [facility] Branch Heart rate 2021-06-21 22:04:00 96 /min [facility] Oxygen saturation 2021-06-21 22:03:00 99 /min Uni [facility] in Arterial blood Medical Br anch by Pulse oximetry Heart rate 2020-10-01 20:20:00 60 /min [facility] Branch Systolic blood 2020-10-01 20:20:00 120 mm[Hg] Univer [facility] [place] pressure [facility] Branch Diastolic blood 2020-10-01 20:20:00 80 mm[Hg] [facility] 2020-10-01 20:20:00 60 /min [facility] Branch Systolic blood 2020-10-01 20:20:00 120 mm[Hg] Univer [facility] [place] pressure Medical Branch Diastolic blood 2020-10-01 20:20:00 80 mm[Hg] [facility] Procedures Procedure Date / Time Performed Performing Clinician [facility] e EXTERNAL PROVIDER 2021-07-19 06:01:00 Doctor Unassigned, No Univ [facility] RECORDS Name Medical Branch POCT GLUCOSE 2021-06-21 22:47:00 Dev Zavala [facility] (AUTOMATED) Medical Branch POCT GLUCOSE(AGE 2021-06-21 00:00:00 Dev Zavala [facility] >30DAYS) Medical Branch Plan of Care Planned Activity Planned Date Details Comments Source Future Scheduled 2022 Screening for University [facility] Test 00:00:00 malignant neoplasm of Medica l Branch colon (procedure) [code = 540904905] Future Scheduled 2022 Screening for University [facility] Test 00:00:00 malignant neoplasm of Medica l Branch colon (procedure) [code = 163399544] Future Scheduled 2021-09-07 Creatinine [facility] [place] Test 00:00:00 measurement Medical Branch (procedure) [code = 51790826] Future Scheduled 2021-09-07 Creatinine [facility] [place] Test 00:00:00 measurement Medical Branch (procedure) [code = 50565329] Future Scheduled 2021-09-05 Calculated low [facility] [place] Test 00:00:00 density lipoprotein Medical Branch cholesterol level (procedure) [code = 144828870] Future Scheduled 2021-09-05 Calculated low Universit y of [place] Test 00:00:00 density lipoprotein Medical Branch cholesterol level (procedure) [code = 807659514] Future Scheduled 2021-05-08 Depression screening Uni versity of [place] Test 00:00:00 (procedure) [code = Medical Branch 404255075] Future Scheduled 2021-05-08 Depression screening Uni versity of [place] Test 00:00:00 (procedure) [code = Medical Branch 218288254] Future Scheduled 2021-03-07 Hemoglobin A1c [facility] y [facility] [place] Test 00:00:00 measurement Medical Branch (procedure) [code = 31041539] Future Scheduled 2021-03-07 Hemoglobin A1c [facility]it y [facility] [place] Test 00:00:00 measurement Medical Branch (procedure) [code = 92205653] Future Scheduled 2021-01-27 INFLUENZA VACCINE Univer sity of [place] Test 00:00:00 (Season Ended) [code Medical Branch = INFLUENZA VACCINE (Season Ended)] Future Scheduled 2021-01-27 INFLUENZA VACCINE Univer sity of [place] Test 00:00:00 (Season Ended) [code Medical Branch = INFLUENZA VACCINE (Season Ended)] Future Scheduled 2020-10-31 Screening for [facility] [place] Test 00:00:00 malignant neoplasm of Medica l Branch breast (procedure) [code = 389416859] Future Scheduled 2020-10-31 Screening for [facility] [place] Test 00:00:00 malignant neoplasm of Medica l Branch breast (procedure) [code = 413380160] Future Scheduled 2020-09-25 Screening for [facility] [place] Test 00:00:00 malignant neoplasm of Medica l Branch cervix (procedure) [code = 261766017] Future Scheduled 2020-09-25 Screening for [facility] [place] Test 00:00:00 malignant neoplasm of Medica l Branch cervix (procedure) [code = 811303993] Future Scheduled 2020-05-10 Diabetic foot [facility] [place] Test 00:00:00 examination Medical Branch (regime/therapy) [code = 439554242] Future Scheduled 2020-05-10 Diabetic foot [facility] Test 00:00:00 examination Medical Branch (regime/therapy) [code = 024592534] Future Scheduled 2019-09-01 Microalbumin [facility] Test 00:00:00 measurement, urine, Medical Branch quantitative (procedure) [code = 716653670] Future Scheduled 2019-09-01 Microalbumin [facility] Test 00:00:00 measurement, urine, Medical Branch quantitative (procedure) [code = 150134371] Future Scheduled 1991 DTaP,Tdap,and Td Univers [facility]y [facility] [place] Test 00:00:00 Vaccines (1 - Tdap) Medical Branch [code = DTaP,Tdap,and Td Vaccines (1 - Tdap)] Future Scheduled 1991 DTaP,Tdap,and Td Univers ity [facility] Test 00:00:00 Vaccines (1 - Tdap) Medical Branch [code = DTaP,Tdap,and Td Vaccines (1 - Tdap)] Future Scheduled 1990 Hepatitis C screening Un iversity of [place] Test 00:00:00 (procedure) [code = Medical Branch 725414999] Future Scheduled 1990 Hepatitis C screening Un ivers[facility] of [place] Test 00:00:00 (procedure) [code = Medical Branch 589635287] Future Scheduled 1988 SARS-CoV-2 (COVID-19) Un ivers[facility] [place] Test 00:00:00 Vaccine (1) [code = Medical Branch SARS-CoV-2 (COVID-19) Vaccine (1)] Future Scheduled 1988 SARS-CoV-2 (COVID-19) Un ivers[facility] of [place] Test 00:00:00 Vaccine (1) [code = Medical Branch SARS-CoV-2 (COVID-19) Vaccine (1)] Future Scheduled 1982 Examination of retina Un iversity of [place] Test 00:00:00 (procedure) [code = Medical Branch 238124790] Future Scheduled 1982 Examination of retina Un ivers[facility] of [place] Test 00:00:00 (procedure) [code = Medical Branch 958235043] Future Scheduled 1978 PNEUMOCOCCAL 0-64 Univer sity of [place] Test 00:00:00 YEARS COMBINED SERIES Medica l Branch (1 of 1 - PPSV23) [code = PNEUMOCOCCAL 0-64 YEARS COMBINED SERIES (1 of 1 - PPSV23)] Future Scheduled 1978 PNEUMOCOCCAL 0-64 Univyana [facility]son of [place] Test 00:00:00 YEARS COMBINED SERIES Medica l Branch (1 of 1 - PPSV23) [code = PNEUMOCOCCAL 0-64 YEARS COMBINED SERIES (1 of 1 - PPSV23)] Encounters Start End Encounter Admission Attending Care Care Encounter Source Date/Time Date/Time Type Type Clinicians Facility Department ID 2021-07-19 2021-07-19 Orders Doctor VAISHALI [id number] Univers 00:00:00 00:00:00 Only Unassigned, ARTURO [id number] ity of [place] [facility] [id number] [place] as [phone] [address] 2021-07-05 2021-07-05 [facility] [id number] Univers 00:00:00 00:00:00 [facility] [id number] ity of [place] [id number] [place] as DILLAN?BLEA [phone] [address] OFFICE BUILDING 2021-06-21 2021-06-21 Office [facility] [id number] Univers 16:00:00 16:54:48 Visit Wondiful A HEALTH [id number] ity of [place] [id number] [place] as DILLAN?BLEA [phone] [address] OFFICE BUILDING 2020-10-01 2020-10-01 Office [facility] [id number] 15:08:27 16:09:31 Visit Wondiful A Health [id number] [place] [id number] Professio [phone] [place] [address] Office [address] One 2018-06-27 2018-06-27 [facility] [id number] [facility] [address] 11:57:00 11:57:00 [facility] Family Medicine l Medicine Outpati ent Clinics 2018-06-15 2018-06-15 [facility] [id number] 16:24:00 16:24:00 t [facility] Medicine Outpati ent Clinics 2018-06-13 2018-06-13 [facility] [id number] 13:30:00 13:30:00 t Hemp 4 [place] - [facility] Medicine Outpati ent Clinics 2017-12-12 2017-12-12 [facility] [id number] 13:22:00 13:22:00 t [facility] Medicine Outpati ent Clinics 2017-11-20 2017-11-20 [facility] [id number] 10:30:00 10:30:00 t [facility] Medicine Outpati ent Clinics 2017-11-02 2017-11-02 [facility] [id number] 15:15:00 15:15:00 t [facility] Medicine Outpati ent Clinics Results Test Description Test Time Test Comments Results Result Comments Source POCT GLUCOSE (AUTOMATED) 2021-06-21 22:49:56 Test Item Value Reference Range Interpretation Comme nts POCT GLU (test code = 8106199610) 384 mg/dL 70-110 H Lab Interpretation (test code = 82009-6) [facility] >30DAYS[facility]2021-06-21 22:30:00 Test Item Value Reference Range Interpretation Comments POCT Glu (age>30days) (test code = 384 mg/dL 70-110 A 3342) Lab Interpretation (test code = Abnormal 76909-5) [facility]
--- NOTE | 2021-07-24 12:57 | RAD REPORT ---
EXAM DESCRIPTION: CT - CTHCSPWOC - 07/24/2021 12:47 pm CLINICAL HISTORY: Trauma, head and neck injury. TRAUMA COMPARISON: No comparisons TECHNIQUE: Axial 5 mm thick images of the head were obtained. Axial 2 mm thick images of the cervical spine were obtained with sagittal and coronal reconstruction images generated and reviewed. All CT scans are performed using dose optimization technique as appropriate and may include automated exposure control or mA/KV adjustment according to patient size. FINDINGS: CT HEAD WITHOUT CONTRAST: No acute hemorrhage, hydrocephalus or extra-axial collection is identified.No areas of brain edema or midline shift. The paranasal sinuses and mastoids are clear.The calvarium is intact. Posterior scalp hematoma is pr esent measuring [address] CERVICAL SPINE WITHOUT CONTRAST: No fracture or subluxation.No prevertebral soft tissues swelling is identified. IMPRESSION: No acute intracranial or cervical spine findings.
[2021-07-24] MEDS ORDERED: HYDROCODONE/APAP 5/325 MG TAB ONE (13:28)
--- NOTE | 2021-07-24 13:30 | EDPHYS ---
Physician Documentation [facility] Name: Karen Shah Age: 51 yrs Sex: Female : 1970 Arrival Date: 07/24/2021 Time: 12:32 Bed 15 Private MD: ED Physician Wes Marion HPI: 07/24 12:36 This 51 yrs old Female presents to ER via Wheelchair with complaints of Fall ms3 Injury. 12:36 Details of fall: The patient fell from seated position, out of a wheelchair. Onset: The ms3 symptoms/episode began/occurred acutely, just prior to arrival. Associated injuries: The patient sustained injury to the head, contusion. Severity of symptoms: in the emergency department the symptoms are unchanged. 51-year-old female with past medical history of hypertension, diabetes, hyperlipidemia, DVT, coronary artery disease, CVA, status post right AKA presents status post falling back in her wheelchair while in the closet. Patient did have loss of consciousness. Patient complaining of posterior head pain that she rates a 10/10 and described as throbbing. Patient denies alleviating or inciting factors. Patient denies nausea, vomiting, neck pain.. Historical: - Allergies: 12:39 Adhesives; ph 12:39 Toradol; ph 12:39 tramadol; ph - PMHx: 12:39 angina pectoris; CAD; CVA; Diabetes - IDDM; High Cholesterol; Hypertension; Myocardial ph infarction; Seizures; - PSHx: 12:39 CABG x 2; section; right AKA; ph - Immunization history:: Adult Immunizations unknown. - Social history:: Smoking status: unknown. ROS: 13:24 Constitutional: Negative for fever, and chills. Eyes: Negative for injury, pain, ms3 redness, and discharge, ENT: Negative for injury, pain, and discharge, Neck: Negative for injury, pain, and swelling, Cardiovascular: Negative for chest pain, and palpitations. Respiratory: Negative for shortness of breath, cough, wheezing, and pleuritic chest pain, Abdomen/GI: Negative for abdominal pain, nausea, vomiting, diarrhea, and constipation, Back: Negative for injury and pain, MS/Extremity: Negative for injury and deformity, Skin: Negative for injury, rash, and discoloration, Allergy/Immunology: Negative for hives, rash, and allergies. 13:24 Neuro: Positive for headache, loss of consciousness. Exam: 13:25 Constitutional: This is a well developed, well nourished patient who is awake, alert, ms3 and in no acute distress. 13:25 Eyes: Pupils equal round and reactive to light, extra-ocular motions intact. Lids and lashes normal. Conjunctiva and sclera are non-icteric and not injected. Periorbital areas with no swelling, redness, or edema. Neck: Trachea midline, no cervical lymphadenopathy. Supple, full range of motion without nuchal rigidity, or vertebral point tenderness. No Meningismus. Chest/axilla: Normal chest wall appearance and motion. Nontender with no deformity. Cardiovascular: Regular rate and rhythm with a normal S1 and S2. No gallops, murmurs, or rubs. Normal PMI, no JVD. No pulse deficits. Respiratory: Lungs have equal breath sounds bilaterally, clear to auscultation and percussion. No rales, rhonchi or wheezes noted. No increased work of breathing, no retractions or nasal flaring. Abdomen/GI: Soft, non-tender, with normal bowel sounds. No distension or tympany. No guarding or rebound. No evidence of tenderness throughout. Back: No spinal tenderness. No costovertebral tenderness. Full range of motion. Skin: Warm, dry with normal turgor. Normal color with no rashes, no lesions, and no evidence of cellulitis. Neuro: Awake and alert, GCS 15, oriented to person, place, time, and situation. Cranial nerves II-XII grossly intact. Motor strength 5/5 in all extremities. Sensory grossly intact. Cerebellar exam normal. Normal gait. Psych: Awake, alert, with orientation to person, place and time. Behavior, mood, and affect are within normal limits. 13:25 Head/face: Noted is hematoma, that is moderate, of the posterior head. tenderness, that is moderate, of the posterior scalp. Vital Signs: 12:36 Temp 97.4; ph 12:45 BP 186 / 109; Pulse 121; Resp 20; Pulse Ox 99% on R/A; Pain 10/10; ab2 12:51 Weight 66.22 kg; Height 4 ft. 1 in. (124.46 cm); ab2 13:35 BP 166 / 89; Pulse 87; Resp 16; Pulse Ox 98% on R/A; ab2 12:51 Body Mass Index 42.75 (66.22 kg, 124.46 cm) ab2 [place] Coma Score: 12:44 Eye Response: spontaneous(4). Verbal Response: oriented(5). Motor Response: obeys ab2 commands(6). Total: 15. Trauma Score (Adult): 12:43 Eye Response: spontaneous(1); Verbal Response: oriented(1); Motor Response: obeys ab2 commands(2); Systolic BP: > 89 mm Hg(4); Respiratory Rate: 10 to 29 per min(4); [place] Score: 15; Trauma Score: 12 MDM: 12:33 Patient medically screened. ms3 13:26 Differential diagnosis: abrasion, closed head injury, contusion, fracture, ICH. Data ms3 reviewed: vital signs, nurses notes, radiologic studies, CT scan. Counseling: I had a detailed discussion with the patient and/or guardian regarding: the historical points, exam findings, and any diagnostic results supporting the discharge/admit diagnosis, radiology results, the need for outpatient follow up, to return to the emergency department if symptoms worsen or persist or if there are any questions or concerns that arise at home. ED course: Discussed CT head and neck with patient and her . Patient to follow-up with her primary care physician in 48 hours. Patient understands and agrees with plan. All questions were answered. Return cautions discussed include worsening symptoms, or any other concerns. On reevaluation patient is alert and oriented x4, no apparent distress, nontoxic appearing, speaking full sentences.. 07/24 12:45 Order name: Head C Spine Mpr Wo Con; Complete Time: 12:58 EDMS Administered Medications: 13:27 Drug: HYDROcodone-acetaminophen 5 mg-325 mg 1 tabs Route: PO; ab2 Disposition Summary: 07/24/21 13:29 Discharge Ordered Location: Home ms3 Problem: ms3 Condition: Stable ms3 Diagnosis - Fall from non-moving wheelchair ms3 - scalp hematoma, elevated blood pressure, head pain ms3 Followup: ms3 - With: Private Physician - When: - Reason: Re-evaluation by your physician Discharge Instructions: - Discharge Summary Sheet ms3 - Head Injury, Adult ms3 Forms: - Medication Reconciliation Form ms3 - Thank You Letter ms3 - Antibiotic Education ms3 - Prescription Opioid Use ms3 Signatures: Dispatcher [employer] EDMS Erica Hester, RN RN ph Wes Marion, DO DO ms3 Jeff Burris2 Corrections: (The following items were deleted from the chart) 12:45 12:43 Head Brain Wo Cont+CT.RAD.BRZ ordered. EDMS EDMS 12:47 12:45 C Spine Wo Con+CT.RAD.BRZ ordered. EDMS EDMS
--- NOTE | 2021-07-24 13:30 | ER ---
Nurse's Notes [facility] Name: Karen Shah Age: 51 yrs Sex: Female : 1970 Arrival Date: 07/24/2021 Time: 12:32 Bed 15 Private MD: Diagnosis: Fall from non-moving wheelchair;scalp hematoma, elevated blood pressure, head pain Presentation: 07/24 12:36 Chief complaint: Spouse and/or significant other states: " I heard her yell from the closet and she had fallen backwards in her wheelchair." Initially pt reported +LOC but then stated that she was unsure. Does take blood thinners, ASA and Plavix, hematoma noted to back of head. Coronavirus screen: At this time, the client does not indicate any symptoms associated with coronavirus-19. Ebola Screen: No symptoms or risks identified at this time. Initial Sepsis Screen: Does the patient meet any 2 criteria? No. Patient's initial sepsis screen is negative. Does the patient have a suspected source of infection? No. Patient's initial sepsis screen is negative. Risk Assessment: Do you want to hurt yourself or someone else? Patient reports no desire to harm self or others. Onset of symptoms was July 24, 2021. 12:36 Method Of Arrival: Wheelchair ph 12:36 Acuity: ARIEL 2 ph 12:43 Care prior to arrival: None. Mechanism of Injury: Fall out of chair. Trauma event ab2 details: Injury occurred in the [facility]. Trauma Activation: Alert Physician: ED Physician; Name: ; Notified At: ; Arrived At: Physician: General Surgeon; Name: ; Notified At: ; Arrived At: Physician: Radiology; Name: ; Notified At: ; Arrived At: Physician: Respiratory; Name: ; Notified At: ; Arrived At: Physician: Lab; Name: ; Notified At: ; Arrived At: Historical: - Allergies: 12:39 Adhesives; ph 12:39 Toradol; ph 12:39 tramadol; ph - PMHx: 12:39 angina pectoris; CAD; CVA; Diabetes - IDDM; High Cholesterol; Hypertension; Myocardial ph infarction; Seizures; - PSHx: 12:39 CABG x 2; section; right AKA; ph - Immunization history:: Adult Immunizations unknown. - Social history:: Smoking status: unknown. Screenin:42 Abuse screen: Denies threats or abuse. Denies injuries from another. Nutritional ab2 screening: No deficits noted. Tuberculosis screening: No symptoms or risk factors identified. Fall Risk Fall in past 12 months (25 points). Secondary diagnosis (15 points) No IV (0 pts). Ambulatory Aid- Crutches/Cane/Walker (15 pts). Gait- Impaired (20 pts.). Mental Status- Oriented to own ability (0 pts). Total Mccall Fall Scale indicates High Risk Score (45 or more points). Fall prevention measures have been instituted. Side Rails Up X 2 Placed Close to Nursing Station Frequent Obs/Assessments Occuring Family Present and informed to notify staff if the need to leave the bedside As available patient and family educated on Fall Prevention Program and Strategies. Primary Survey: 12:42 NO uncontrolled hemorrhage observed. Breathing/Chest: Respiratory pattern: regular, ab2 Respiratory effort: spontaneous, unlabored, Breath sounds: clear, Chest inspection: symmetrical rise and fall of the chest. Circulation: Pulses: palpable right radial artery and left radial artery. Disability Alert. Exposure/Environment: There is no evidence of uncontrolled external bleeding. Obvious injury(ies) are noted at this time: Conutsion noted to back of head. 13:35 Reassessment Breathing/Chest Respiratory pattern Regular Respiratory effort Spontaneous ab2 Unlabored Breath sounds Clear Chest inspection Symmetrical. Assessment: 12:40 General: Appears uncomfortable, Behavior is cooperative, crying. Pain: Complains of ab2 pain in left parietal area and right parietal area Pain does not radiate. Pain currently is 10 out of 10 on a pain scale. Neuro: Level of Consciousness is awake, alert, obeys commands, Oriented to person, place, time, situation, Appropriate for age [employer] T[employer] As[employer]er are equal bilaterally Speech is normal. Cardiovascular: No deficits noted. Denies chest pain, shortness of breath, Heart tones S1 S2 Patient's skin is warm and dry. Respiratory: Airway is patent Respiratory effort is even, unlabored, Respiratory pattern is regular, symmetrical. GI: No deficits noted. No signs and/or symptoms were reported involving the gastrointestinal system. Abdomen is round non-distended, Bowel sounds present X 4 quads. : No deficits noted. No signs and/or symptoms were reported regarding the genitourinary system. EENT: No deficits noted. No signs and/or symptoms were reported regarding the EENT system. Derm: Skin is fragile, Skin is dry, Wound noted left parietal area and right parietal area Wound is Contusion. Musculoskeletal: Reports pain in scalp. Vital Signs: 12:36 Temp 97.4; ph 12:45 BP 186 / 109; Pulse 121; Resp 20; Pulse Ox 99% on R/A; Pain 10/10; ab2 12:51 Weight 66.22 kg; Height 4 ft. 1 in. (124.46 cm); ab2 13:35 BP 166 / 89; Pulse 87; Resp 16; Pulse Ox 98% on R/A; ab2 12:51 Body Mass Index 42.75 (66.22 kg, 124.46 cm) ab2 [place] Coma Score: 12:44 Eye Response: spontaneous(4). Verbal Response: oriented(5). Motor Response: obeys ab2 commands(6). Total: 15. Trauma Score (Adult): 12:43 Eye Response: spontaneous(1); Verbal Response: oriented(1); Motor Response: obeys ab2 commands(2); Systolic BP: > 89 mm Hg(4); Respiratory Rate: 10 to 29 per min(4); [place] Score: 15; Trauma Score: 12 ED Course: 12:32 Patient arrived in ED. rg4 12:39 Triage completed. ph 12:40 Jeff Burris is Primary Nurse. ab2 12:40 Arm band placed on Patient placed in an exam room, on a stretcher. ph 12:41 Wes Marion DO is Attending Physician. ms3 12:44 Patient has correct armband on for positive identification. Bed in low position. Call ab2 light in reach. Side rails up X2. Adult w/ patient. 12:44 Patient maintains SpO2 saturation greater than 95% on room air. ab2 12:44 Thermoregulation: warm blanket given to patient. ab2 12:44 No provider procedures requiring assistance completed. ab2 12:47 Head C Spine Mpr Wo Con In Process Unspecified. EDMS 13:35 Patient did not have IV access during this emergency room visit. ab2 Administered Medications: 13:27 Drug: HYDROcodone-acetaminophen 5 mg-325 mg 1 tabs Route: PO; ab2 Outcome: 13:29 Discharge ordered by . ms3 13:34 Discharged to home via wheelchair, with significant other. ab2 13:34 Condition: good 13:34 Discharge instructions given to patient, significant other, Instructed on discharge instructions, follow up and referral plans. Demonstrated understanding of instructions, follow-up care, wound care. 13:35 Patient left the ED. ab2 Signatures: Dispatcher [employer] Erica Munson RN RN hal Eli, Mable rg4 Wes Marion DO DO ms3 Jeff Burris ab2
[2021-07-24 13:40] VITALS: TEMP 97.4
[2021-07-24 13:41] VITALS: BP 186/109; O2SAT 99
== END 2021-07-24 13:35 | disposition home or self-care (01) ==
LOC: ER 12:32
DX: S00.03XA Contusion of scalp, initial encounter (principal); W05.0XXA Fall from non-moving wheelchair, initial encounter; I10 Essential (primary) hypertension; I25.2 Old myocardial infarction; Z88.5 Allergy status to narcotic agent; Z91.048 Other nonmedicinal substance allergy status; Z95.1 Presence of aortocoronary bypass graft; Z89.611 Acquired absence of right leg above knee
CPT/HCPCS: 70450; 72125; 99284

== ENCOUNTER 2021-07-25 17:56 | Emergency (ER) | payer OTHER ==
--- OUTSIDE RECORDS SUMMARY | 2021-07-25 18:01 | XMS REPORT | Continuity of Care Document ---
:1970 Author Organization [facility] t Address [address] [place] [address] Care Team Providers Name Role Phone Lucas [...] (urinary 8-20 ity of tract tract 00:00: [place] infection) infection) 00 Me dical Branch Dizziness Dizziness Disease Active Uni vers 8-20 ity of 00:00: [place] 00 Medical Branch Weakness Weakness Disease Active Unive rs 8-20 ity of 00:00: [place] 00 Medical Branch CAD in CAD in Disease Active Univers [place] 7-05 ity of artery artery 00:00: [place] 00 Medical Branch Hypoglycem Hypoglycem Disease Active [...] 00:00: [place] involving involving 00 Medi [place] coronary coronary artery of artery of [place] heart heart without without angina angina pectoris [...] f urinary urinary 00:00: g of this [place] incontinen incontinen 00 note Me sonu ce, ce, might be Branch female) female) different from the original. Added automatic ally from request for surgery [id number] High High Disease Active Univers cholestero cholestero it y of l l [place] [facility] HTN HTN Disease Active Univers (hypertens (hypertens it y of ion) ion) [facility] GERD GERD Disease Active Univers (gastroeso (gastroeso it y of phageal phageal [place] reflux reflux Medical disease) disease) Branch DM DM Disease Active Univers (diabetes (diabetes ity of mellitus) mellitus) [facility] Depression Depression Disease Active U nivers ity of [facility] CVA CVA Disease Active Univers (cerebral (cerebral ity of vascular vascular [place] accident) accident) [facility] Branch CHF CHF Disease Active Univers (congestiv (congestiv it y of e heart e heart [place] failure) failure) Medica l Branch Anxiety Anxiety Disease Active Univers ity of [facility] Angina Angina Disease Active Univers pectoris pectoris ity of [facility] H/O right H/O right Disease Active Uni vers coronary coronary ity of artery artery [place] stent stent Medical placement placement Bran ch Hyperlipid Hyperlipid Disease Active U nivers emia, emia, ity of unspecifie [place]specifie [place] d Medical hyperlipid hyperlipid Br anch emia type emia type Essential Essential Disease Active Uni vers hypertensi hypertensi it y of on, benign [place], benign [place] [facility] Branch Hx of CABG Hx of CABG Disease Active U nivers ity of [facility] Migraines Migraines Disease Active Uni vers ity of [facility] Seizures Seizures Disease Active Unive rs ity of [facility] Unilateral Unilateral Disease Active U nivers AKA, right AKA, right it y of [facility] History of History of Problem Active C [...] C [facility] Chronic Chronic Problem Active [facility] pain pain [facility] - disorder disorder [facility] a [facility] 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 [facility] current current [facility] - use of use of Memoria insulin insulin l [facility] Neuropathy Neuropathy Problem Active [facility] Depression Depression Problem Active C [facility] with with [facility] - anxiety anxiety [facility]oria [facility] HTN HTN Problem Active [facility] (hypertens (hypertens Charley kes - ion), ion), Memoria benign benign l [facility] Seizures Seizures Problem Active [facility] Coronary Coronary Problem Active [facility] t artery artery [facility]ukes - disease disease Memoria involving involving l coronary coronary Outpat i bypass bypass ent graft of graft of Clinic s [place] heart with heart with angina angina pectoris pectoris Dependent Dependent Problem Active [facility] on on [facility]ukes - wheelchair wheelchair Me moria l [facility] History of History of Problem Active [facility] right right [facility] - above knee above knee Me moria amputation amputation l [facility] Allergies, Adverse Reactions, Alerts Allergy Allergy Status Severity Reaction(s) Onset Inactive Treating Comm ents Source Name Type Date Date Clinician Ketorola Propensi Active Hives Univer s c ty to 7-20 ity of T[place]eth[place] adverse 00:00: [place] mine reaction 00 [facility]ly [facility] Tramadol Propensi Active Hives Univer s ty to 7-20 ity of adverse 00:00: [place] reaction 00 Medical [facility] Toradol Adverse Active Info Not [facility] Reaction Available [facility] tramadol Adverse Active Info Not [facility] Reaction Available [facility] Social History Social Habit Start Date Stop Date Quantity Comments Source History of tobacco Cigarette Smoker University of use [facility] Exposure to Not sure University of SARS-CoV-2 (event) [facility] Alcohol intake 2021-06-21 2021-06-21 Ex-drinker [facility] 00:00:00 00:00:00 (finding) [facility] Education 2021-01-15 2021-01-15 12 University of 00:00:00 00:00:00 [facility] History SDOH 2020-05-08 2020-05-08 99 University o f Alcohol Frequency 00:00:00 00:00:00 [facility] edical Branch History SDOH 2020-05-08 2020-05-08 99 University o f Alcohol Std Drinks 00:00:00 00:00:00 [facility] Branch History SDOH 2020-05-08 2020-05-08 99 University o f Alcohol Binge 00:00:00 00:00:00 [facility] Tobacco Comment 2020-04-03 2020-04-03 smoking since 12 Uni versity of 00:00:00 00:00:00 years old [facility] Alcohol Comment 2019-10-11 2019-10-11 rare Universit y of 00:00:00 00:00:00 [facility] Cigarettes smoked 2018-02-21 2018-02-21 Univers ity of current (pack per 00:00:00 00:00:00 [facility] ) - Reported Branch Tobacco use and 2018-02-21 2018-02-21 Never used Universit y of exposure 00:00:00 00:00:00 [facility] Sex Ass[birth year] At [birth year] Universit y of 00:00:00 00:00:00 [facility] Smoking Status Start Date Stop Date Source Current every day smoker 2018-02-21 00:00:00 Uni versity of [facility] Medications Ordered Filled Start Stop Current Ordering Indication Dosage Frequency Signature Comments Components Source Medication Medication Date Date Medication? Clinician (SIG) Name Name MIRTAZAPINE 2020-05 Yes [id number] 15mg TAKE 1 Univers 15 mg 2-20 TABLET BY ity of tablet 00:00: MOUTH AT [place] [facility] MIRTAZAPINE 2020-05 Yes [id number] 15mg TAKE 1 Univers 15 mg 2-20 TABLET BY ity of tablet 00:00: MOUTH AT [place] [facility] MIRTAZAPINE 2020-05 Yes [id number] 15mg TAKE 1 Univers 15 mg 2-20 TABLET BY ity of tablet 00:00: MOUTH AT [place] [facility] gabapentin 2020- Yes [id number] 800mg Take 1 Univers 800 mg 8-20 tablet by ity of tablet 00:00: mouth 3 [place] (three) Medical times Branch daily. gabapentin 2020- Yes [id number] 800mg Take 1 Univers 800 mg 8-20 tablet by ity of tablet 00:00: mouth 3 [place] 00 (three) Medical times Branch daily. gabapentin 2020-0 Yes [id number] 800mg Take 1 Univers 800 mg 8-20 tablet by ity of tablet 00:00: mouth 3 [place] 00 (three) Medical times Branch daily. ondansetron 2020-0 Yes [id number] 4mg Take 1 Univers 4 mg 8-06 tablet by ity of disintegrat 00:00: mouth [place] ing tablet 00 every 8 Medica l (eight) Branch hours as needed for Nausea and Vomiting (N/V). ondansetron 2020-0 Yes [id number] 4mg Take 1 Univers 4 mg 8-06 tablet by ity of disintegrat 00:00: mouth [place] ing tablet 00 every 8 Medica l (eight) Branch hours as needed for Nausea and Vomiting (N/V). ondansetron 2020-0 Yes [id number] 4mg Take 1 Univers 4 mg 8-06 tablet by ity of disintegrat 00:00: mouth [place] ing tablet 00 every 8 Medica l (eight) Branch hours as needed for Nausea and Vomiting (N/V). aspirin 81 2020-0 Yes [id number] 81mg Take 1 U nivers mg chewable 7-07 tablet by ity of tablet 00:00: mouth [place] 00 daily. Medical Branch clopidogreL 2020-0 Yes [id number] 75mg Take 1 Univers 75 mg 7-07 tablet by ity of tablet 00:00: mouth [place] 00 daily. Medical Branch aspirin 81 2020-0 Yes [id number] 81mg Take 1 U nivers mg chewable 7-07 tablet by ity of tablet 00:00: mouth [place] 00 daily. Medical Branch clopidogreL 2020-0 Yes [id number] 75mg Take 1 Univers 75 mg 7-07 tablet by ity of tablet 00:00: mouth [place] 00 daily. Medical Branch aspirin 81 2020-0 Yes [id number] 81mg Take 1 U nivers mg chewable 7-07 tablet by ity of tablet 00:00: mouth [place] 00 daily. Medical Branch clopidogreL 2020-0 Yes [id number] 75mg Take 1 Univers 75 mg 7-07 tablet by ity of tablet 00:00: mouth [place] 00 daily. Medical Branch ezetimibe 2020-0 Yes [id number] 10mg Take 1 U nivers 10 mg 6-18 tablet by ity of tablet 00:00: mouth [place] 00 daily. Medical Branch furosemide 2020-0 Yes [id number] 1 tablet Univers 20 mg 6-18 02 as needed ity of tablet 00:00: for leg [place] 00 swelling Medical Branch ezetimibe 2020-0 Yes [id number] 10mg Take 1 U nivers 10 mg 6-18 tablet by ity of tablet 00:00: mouth [place] 00 daily. Medical Branch furosemide 2020-0 Yes [id number] 1 tablet Univers 20 mg 6-18 02 as needed ity of tablet 00:00: for leg swelling Medical Branch ezetimibe 2020-0 Yes [id number] 10mg Take 1 U nivers 10 mg 6-18 tablet by ity of tablet 00:00: mouth [place] 00 daily. Medical Branch furosemide 2020-0 Yes [id number] 1 tablet Univers 20 mg 6-18 02 as needed ity of tablet 00:00: for leg 00 swelling Medical Branch insulin NPH 0 Yes [id number] 40U inject Univers and regular 5-12 40-50 ity of human 70-30 00:00: Units [place] (NOVOLIN 00 under the Medica l 70/30 U-100 skin 2 Branch INSULIN) (two) 100 unit/mL times (70-30) daily injection before breakfast and dinner. insulin NPH Yes [id number] 40U inject Univers and regular 5-12 40-50 ity of human 70-30 00:00: Units [place] (NOVOLIN 00 under the Medica l 70/30 U-100 skin 2 Branch INSULIN) (two) 100 unit/mL times (70-30) daily injection before breakfast and dinner. insulin NPH Yes [id number] 40U inject Univers and regular 5-12 40-50 ity of human 70-30 00:00: Units [place] (NOVOLIN 00 under the Medica l 70/30 U-100 skin 2 Branch INSULIN) (two) 100 unit/mL times (70-30) daily injection before breakfast and dinner. atorvastati 0 Yes [id number] 80mg Take 1 Univers n 80 mg 5-06 tablet by ity of tablet 00:00: mouth at [place] 00 bedtime. Medical Branch atorvastati 2020-0 Yes [id number] 80mg Take 1 Univers n 80 mg 5-06 tablet by ity of tablet 00:00: mouth at [place] 00 bedtime. Medical Branch atorvastati Yes [id number] 80mg Take 1 Univers n 80 mg [...] [place] 00 involving bedtime. Medica l [place] coronary artery of [place] heart without angina pectoris glipiZIDE Yes Type [...] [place] 00 involving bedtime. Medica l [place] Branch coronary artery of [place] heart without angina pectoris ezetimibe 2020- No [...] human 70-30 00:00: 04:59 diabetes under the [place] (NOVOLIN 00 :00 mellitus skin 2 Medic [...] human 70-30 00:00: 04:59 diabetes under the [place] (NOVOLIN 00 :00 mellitus skin 2 Medic [...] :00 involving daily for Medi [place] tablet [place] 30 days. Branch coronary artery of [place] heart without angina pectoris SITagliptin 2020- No [...] :00 involving daily for Medi [place] tablet [place] 30 days. Branch coronary artery of [place] heart without angina pectoris SITagliptin 2020- No [...] human 70-30 00:00: 00:00 diabetes under the [place] (NOVOLIN 00 :00 mellitus skin 2 Medic [...] TWICE Medical DAILY WITH Branch MEALS METFORMIN 0 Yes TAKE 2 Univer s 500 mg 3-09 TABLETS BY ity of tablet 00:00: MOUTH TWICE Medical DAILY WITH Branch MEALS METFORMIN 0 Yes TAKE 2 Univer s 500 mg 3-09 TABLETS BY ity of tablet 00:00: MOUTH TWICE Medical DAILY WITH Branch MEALS pantoprazol 0 Yes [id number] 40mg Take 1 Univers e 40 mg EC 1-11 tablet by ity of tablet 00:00: mouth 00 daily. Medical Branch pantoprazol Yes [id number] 40mg Take 1 Univers e 40 mg EC 1-11 tablet by ity of tablet 00:00: mouth 00 daily. Medical Branch pantoprazol Yes [id number] 40mg Take 1 Univers e 40 mg [...] stent daily. Medical placement Branch atorvastati 2019-0 1- No Coronary 80mg Take 1 Univers n 80 mg 3-20 05-06 artery tablet by ity of tablet 00:00: 00:00 disease mouth at [place] 00 :00 involving bedtime. Medica l [place] Branch coronary artery of [place] heart without angina pectoris atorvastati 2020- No Coronary 80mg Take 1 Univers n 80 mg 3-20 05-06 artery tablet by ity of tablet 00:00: 00:00 disease mouth at [place] 00 :00 involving bedtime. Medica l [place] Branch coronary artery of [place] heart without angina pectoris nitroglycer 2018-05 Yes [id number] 1 tab SL Univers in 0.4 mg 0-29 q5min up ity of sublingual 00:00: to 3 doses [place] tablet 00 PRN chest Medical pain, then Branch activate 911. nitroglycer 2018-05 Yes [id number] 1 tab SL Univers in 0.4 mg 0-29 q5min up ity of sublingual 00:00: to 3 doses [place] tablet 00 PRN chest Medical pain, then Branch activate 911. nitroglycer 2018-05 Yes [id number] 1 tab SL Univers in 0.4 mg [...] [facility] Furosemide Furosemide Yes [place]ada [address] [facility] Duloxetine Duloxetine Yes Dada [address] HCl HCl [facility] Xanax Xanax Yes Dada [address] [facility] Clopidogrel Clopidogrel Yes Dada [address] Bisulfate Bisulfate [facility] Metformin Metformin Yes Dada [address] HCl HCl [facility] with meals [facility] Pantoprazol Pantoprazol Yes Dada [address] e Sodium e Sodium [facility] Klor-Con Klor-Con Yes Dada [address] M10 M10 [place] with food [facility] Duloxetine Duloxetine Yes Dada [address] HCl HCl [facility] Levetiracet Levetiracet Yes Dada [address] am am [facility] Weyanoke Weyanoke Yes Dada [address] [facility] as needed [facility] Lexapro Lexapro Yes Dada [address] [facility] Atorvastati Atorvastati Yes Dada [address] n Calcium n Calcium [facility] Clopidogrel Clopidogrel Yes Dada [address] Bisulfate Bisulfate [facility] Furosemide Furosemide Yes Dada [address] [facility] Immunizations Ordered Filled Immunization Date Status Comments Sour e Immunization Name Name SARS-COV-2 COVID-19 2021-01-17 Completed Unive rsity of PFIZER VACCINE 00:00:00 [facility] SARS-COV-2 COVID-19 2021-01-17 Completed Unive rsity of Visibiz VACCINE 00:00:00 [facility] SARS-COV-2 COVID-19 2021-01-17 Completed Unive rsity of PFIZER VACCINE 00:00:00 [facility] Vital Signs Vital Name Observation Time Observation Value Comments Source Systolic blood 2021-06-21 22:04:00 136 mm[Hg] Univer sity of [place] pressure Medical Branch Diastolic blood 2021-06-21 22:04:00 81 mm[Hg] [facility] Heart rate 2021-06-21 22:04:00 96 /min [facility] Oxygen saturation 2021-06-21 22:03:00 99 /min Uni [facility] in Arterial blood Medical Br anch by Pulse oximetry Heart rate 2020-10-01 20:20:00 60 /min [facility] Medical Branch Systolic blood 2020-10-01 20:20:00 120 mm[Hg] Univer [facility] pressure Medical Branch Diastolic blood 2020-10-01 20:20:00 80 mm[facility]Hg] [facility] Heart rate 2020-10-01 20:20:00 60 /min [facility] Medical Branch Systolic blood 2020-10-01 20:20:00 120 mm[Hg] Univer [facility] pressure Medical Branch Diastolic blood 2020-10-01 20:20:00 80 mm[Hg] [facility] [place] Procedures Procedure Date / Time Performed Performing Clinician [facility] e EXTERNAL PROVIDER 2021-07-19 06:01:00 Doctor Unassigned, No Univ [facility] RECORDS Name Medical Branch POCT GLUCOSE 2021-06-21 22:47:00 Dev Zavala [facility] (AUTOMATED) Medical Branch POCT GLUCOSE(AGE 2021-06-21 00:00:00 Dev Zavala [facility] >30DAYS) Medical Branch Plan of Care Planned Activity Planned Date Details Comments Source Future Scheduled 2022 Screening for [facility] Test 00:00:00 malignant neoplasm of Medica l Branch colon (procedure) [code = 394657385] Future Scheduled 2022 Screening for [facility] Test 00:00:00 malignant neoplasm of Medica l Branch colon (procedure) [code = 063812751] Future Scheduled 2021-09-07 Creatinine [facility] [place] Test 00:00:00 measurement Medical Branch (procedure) [code = 35592938] Future Scheduled 2021-09-07 Creatinine [facility] [place] Test 00:00:00 measurement Medical Branch (procedure) [code = 56179649] Future Scheduled 2021-09-05 Calculated low [facility] [place] Test 00:00:00 density lipoprotein Medical Branch cholesterol level (procedure) [code = 231876443] Future Scheduled 2021-09-05 Calculated low Universit y of [place] Test 00:00:00 density lipoprotein Medical Branch cholesterol level (procedure) [code = 792580522] Future Scheduled 2021-05-08 Depression screening Uni versity of [place] Test 00:00:00 (procedure) [code = Medical Branch 801030407] Future Scheduled 2021-05-08 Depression screening Uni versity of [place] Test 00:00:00 (procedure) [code = Medical Branch 194255348] Future Scheduled 2021-03-07 Hemoglobin A1c Universit y [facility] [place] Test 00:00:00 measurement Medical Branch (procedure) [code = 94066751] Future Scheduled 2021-03-07 Hemoglobin A1c Universit y of [place] Test 00:00:00 measurement Medical Branch (procedure) [code = 80726554] Future Scheduled 2021-01-27 INFLUENZA VACCINE Univer sity of [place] Test 00:00:00 (Season Ended) [code Medical Branch = INFLUENZA VACCINE (Season Ended)] Future Scheduled 2021-01-27 INFLUENZA VACCINE Univer sity of [place] Test 00:00:00 (Season Ended) [code Medical Branch = INFLUENZA VACCINE (Season Ended)] Future Scheduled 2020-10-31 Screening for [facility] [place] Test 00:00:00 malignant neoplasm of Medica l Branch breast (procedure) [code = 499126602] Future Scheduled 2020-10-31 Screening for [facility] [place] Test 00:00:00 malignant neoplasm of Medica l Branch breast (procedure) [code = 427244818] Future Scheduled 2020-09-25 Screening for [facility] [place] Test 00:00:00 malignant neoplasm of Medica l Branch cervix (procedure) [code = 660169265] Future Scheduled 2020-09-25 Screening for [facility] [place] Test 00:00:00 malignant neoplasm of Medica l Branch cervix (procedure) [code = 857518543] Future Scheduled 2020-05-10 Diabetic foot [facility] [place] Test 00:00:00 examination Medical Branch (regime/therapy) [code = 783234973] Future Scheduled 2020-05-10 Diabetic foot [facility] Test 00:00:00 examination Medical Branch (regime/therapy) [code = 165674442] Future Scheduled 2019-09-01 Microalbumin [facility] Test 00:00:00 measurement, urine, Medical Branch quantitative (procedure) [code = 790967731] Future Scheduled 2019-09-01 Microalbumin [facility] Test 00:00:00 measurement, urine, Medical Branch quantitative (procedure) [code = 277127692] Future Scheduled 1991 DTaP,Tdap,and Td Univers ity of [place] Test 00:00:00 Vaccines (1 - Tdap) Medical Branch [code = DTaP,Tdap,and Td Vaccines (1 - Tdap)] Future Scheduled 1991 DTaP,Tdap,and Td Univers ity of [place] Test 00:00:00 Vaccines (1 - Tdap) Medical Branch [code = DTaP,Tdap,and Td Vaccines (1 - Tdap)] Future Scheduled 1990 Hepatitis C screening Un iversity of [place] Test 00:00:00 (procedure) [code = Medical Branch 549677270] Future Scheduled 1990 Hepatitis C screening Un [facility]vers[facility] of [place] Test 00:00:00 (procedure) [code = Medical Branch 224563558] Future Scheduled 1988 SARS-CoV-2 (COVID-19) Un ivers[facility] of [place] Test 00:00:00 Vaccine (1) [code = Medical Branch SARS-CoV-2 (COVID-19) Vaccine (1)] Future Scheduled 1988 SARS-CoV-2 (COVID-19) Un iversity of [place] Test 00:00:00 Vaccine (1) [code = Medical Branch SARS-CoV-2 (COVID-19) Vaccine (1)] Future Scheduled 1982 Examination of retina Un iversity of [place] Test 00:00:00 (procedure) [code = Medical Branch 234543093] Future Scheduled 1982 Examination of retina Un iversity of [place] Test 00:00:00 (procedure) [code = Medical Branch [id number]] Future Scheduled 1978 PNEUMOCOCCAL 0-64 Univer sity of [place] Test 00:00:00 YEARS COMBINED SERIES Medica l Branch (1 of 1 - PPSV23) [code = PNEUMOCOCCAL 0-64 YEARS COMBINED SERIES (1 of 1 - PPSV23)] Future Scheduled 1978 PNEUMOCOCCAL 0-64 Univer sity of [place] Test 00:00:00 YEARS COMBINED SERIES Medica l Branch (1 of 1 - PPSV23) [code = PNEUMOCOCCAL 0-64 YEARS COMBINED SERIES (1 of 1 - PPSV23)] Encounters Start End Encounter Admission Attending Care Care Encounter Source Date/Time Date/Time Type Type Clinicians Facility Department ID 2021-07-19 2021-07-19 Orders Doctor VAISHALI [id number] Univers 00:00:00 00:00:00 Only Unassigned, ARTURO [id number] ity of [place] [facility] [id number] [place] [phone] [address] 2021-07-05 2021-07-05 [id number] Univers 00:00:00 00:00:00 W[facility] [id number] ity of [place] [id number] [place] DILLAN?BLEA [phone] [address] OFFICE BUILDING 2021-06-21 2021-06-21 Office [facility] [id number] Univers 16:00:00 16:54:48 Visit Wondiful A HEALTH [id number] ity of [place] [id number] [place] DILLAN?BLEA [id number] [address] OFFICE BUILDING 2020-10-01 2020-10-01 Office [facility] [id number] 15:08:27 16:09:31 Visit Wondiful A Health [id number] [place] [id number] Professio [phone] [place] [address] [address] 2018-06-27 2018-06-27 [facility] [id number] [facility] [address] 11:57:00 11:57:[address] Luke s - Drive [facility] Medicine Outpati ent Clinics 2018-06-15 2018-06-15 [facility] [id number] 16:24:00 16:24:00 t [employer] - Shahab P. Tabatabai, Broker [facility] Medicine Outpati ent Clinics 2018-06-13 2018-06-13 [facility] [id number] 13:30:00 13:30:00 t [employer] - Shahab P. Tabatabai, Broker [facility] Medicine Outpati ent Clinics 2017-12-12 2017-12-12 [facility] [id number] 13:22:00 13:22:00 t [employer] - Shahab P. Tabatabai, Broker [facility] Medicine Outpati ent Clinics 2017-11-20 2017-11-20 [facility] [id number] 10:30:00 10:30:00 t Opternative [facility] Medicine Outpati ent Clinics 2017-11-02 2017-11-02 [facility] [id number] 15:15:00 15:15:00 t Opternative [facility] Medicine Outpati ent Clinics Results Test Description Test Time Test Comments Results Result Comments Source POCT GLUCOSE (AUTOMATED) 2021-06-21 22:49:56 Test Item Value Reference Range Interpretation Comme nts POCT GLU (test code = [id number]) 384 mg/dL 70-110 H Lab Interpretation (test code = 50220-6) [facility] >30DAYS[facility]2021-06-21 22:30:00 Test Item Value Reference Range Interpretation Comments POCT Glu (age>30days) (test code = 384 mg/dL 70-110 A 3342) Lab Interpretation (test code = Abnormal 90340-5) [facility]
--- NOTE | 2021-07-25 18:55 | RAD REPORT ---
EXAM DESCRIPTION: CT - Head Brain Wo Cont - 07/25/2021 6:43 pm CLINICAL HISTORY: fall, dizziness, headache COMPARISON: <Comparisons> TECHNIQUE: All CT scans are performed using dose optimization technique as appropriate and may inclu de automated exposure control or mA/KV adjustment according to patient size. FINDINGS: No intracranial hemorrhage, hydrocephalus or extra-axial fluid collection.No areas of brai n edema or evidence of midline shift. The paranasal sinuses and mastoids are clear. The calvarium is intact. Right occipital scalp hematoma . IMPRESSION: No acute intracranial abnormality. Right occipital scalp hematoma. No skull fracture.
[2021-07-25] MEDS ORDERED: ACETAMINOPHEN 500 MG TAB ONE (19:25)
[2021-07-25] MEDS ORDERED: NA CHLORIDE 0.9% 500 ML ONE (19:25)
[2021-07-25] MEDS ORDERED: DIPHENHYDRAMINE 50 MG/ML VIAL ONE (19:26)
[2021-07-25] MEDS ORDERED: METOCLOPRAMIDE 10 MG/2mL INJ ONE (19:37)
--- NOTE | 2021-07-25 21:10 | EDPHYS ---
Physician Documentation [facility] Name: Karen Shah Age: 51 yrs Sex: Female : 1970 Arrival Date: 07/25/2021 Time: 18:00 Bed 8 Private MD: ED Physician Sánchez Nice HPI: 07/25 18:45 This 51 yrs old Female presents to ER via Wheelchair with complaints of jr11 Headache. 18:45 The patient complains of pain to the diffuse. The patient describes the headache as jr11 aching, constant, pounding, throbbing. Onset: The symptoms/episode began/occurred today. Associated signs and symptoms: Pertinent positives: nausea, Pertinent negatives: fever, vision changes, vision loss, vomiting, weakness. Severity of symptoms: At its worst the pain was severe, in the emergency department the pain is unchanged. The symptoms are alleviated by nothing. the symptoms are aggravated by nothing. Patient is a 51-year-old female that was seen here yesterday, had a mechanical fall struck her posterior scalp suffered a hematoma. Patient states hematoma is doing better however she has been having worsening headache, she does take Plavix and aspirin given her cardiac condition. Nausea, no episodes of emesis, no neuro complaints.. Historical: - Allergies: 18:03 Adhesives; ss7 18:03 Toradol; ss7 18:03 tramadol; ss7 - PMHx: 18:03 angina pectoris; CAD; CVA; Diabetes - IDDM; High Cholesterol; Hypertension; Myocardial ss7 infarction; Seizures; - PSHx: 18:03 CABG x 2; section; right AKA; ss7 - Immunization history:: Pneumococcal vaccine is not up to date, Flu vaccine status is unknown. - Social history:: Smoking status: Patient reports the use of cigarette tobacco products, smokes one-half pack cigarettes per day. ROS: 18:51 Constitutional: Negative for fever, chills Eyes: Negative for injury, pain, redness, jr11 and discharge, Neck: Negative for injury, pain, and swelling, Cardiovascular: Negative for chest pain, palpitations, and edema, Respiratory: Negative for shortness of breath, cough Abdomen/GI: Negative for abdominal pain, nausea, vomiting Back: Negative for injury and pain, Skin: Negative for injury, rash, and discoloration, Allergy/Immunology: Negative for hives, rash, and allergies, Endocrine: Negative for neck swelling, polydipsia, polyuria, polyphagia, and marked weight changes. 18:51 All other systems are negative. Exam: 18:51 Constitutional: This is a well developed, well nourished patient who is awake, alert, jr11 and in no acute distress. Head/Face: 3x3 cm hematoma posterior scalp Neck: Trachea midline, no thyromegaly or masses palpated, and no cervical lymphadenopathy. Supple, full range of motion without nuchal rigidity, or vertebral point tenderness. No Meningismus. Chest/axilla: Normal chest wall appearance and motion. Nontender with no deformity. No lesions are appreciated. Cardiovascular: Regular rate and rhythm with a normal S1 and S2. No gallops, murmurs, or rubs. Normal PMI, no JVD. No pulse deficits. Abdomen/GI: Soft, non-tender, with normal bowel sounds. No distension or tympany. No guarding or rebound. No evidence of tenderness throughout. Skin: Warm, dry with normal turgor. Normal color with no rashes, no lesions, and no evidence of cellulitis. MS/ Extremity: RAKA Neuro: Awake and alert, GCS 15, oriented to person, place, time, and situation. No gross motor or sensory deficits. Vital Signs: 18:01 BP 142 / 97; Pulse 116; Resp 16; Temp 98.1; Pulse Ox 98% ; Weight 63.5 kg; Height 5 ft. ss7 4 in. (162.56 cm); Pain 10/10; 19:40 BP 162 / 96; Pulse 102; Resp 16; Pulse Ox 98% ; al4 20:00 BP 144 / 97; Pulse 101; Resp 16 S; Pulse Ox 98% on R/A; al4 20:58 BP 150 / 84; Pulse 101; Resp 18; Pulse Ox 98% on R/A; st1 21:23 BP 114 / 88; Pulse 105; Resp 18 S; Pulse Ox 100% on R/A; al4 18:01 Body Mass Index 24.03 (63.50 kg, 162.56 cm) ss7 [place] Coma Score: 18:51 Eye Response: spontaneous(4). Verbal Response: oriented(5). Motor Response: obeys jr11 commands(6). Total: 15. MDM: 18:26 Patient medically screened. jr11 18:51 Differential diagnosis: migraine, concussion, CHI. Data reviewed: vital signs, jr11 radiologic studies. ED course: 51-year-old complaining of diffuse headache, status post fall. Given that she is on Plavix, will CT again, rule out a slow bleed. In the meantime we will treat symptomatically. Will check out to the next attending at 7 PM.. 21:01 Data interpreted: Pulse oximetry: on room air is 98 %. Interpretation: normal. mh7 Counseling: I had a detailed discussion with the patient and/or guardian regarding: the historical points, exam findings, and any diagnostic results supporting the discharge/admit diagnosis, the presence of at least one elevated blood pressure reading (>120/80) during this emergency department visit, radiology results, the need for outpatient follow up, to return to the emergency department if symptoms worsen or persist or if there are any questions or concerns that arise at home. Response to treatment: the patient's symptoms have resolved after treatment, the patient's blood pressure is in an acceptable range, mental status has returned to baseline, the patient no longer shows bradycardia, the patient is not short of breath, the patient is not tachycardic, the patient's pain is gone, the patient's temperature has normalized, patient is well hydrated. 07/25 18:32 Order name: CT Head Brain wo Cont; Complete Time: 18:57 jr11 Administered Medications: 19:27 Drug: Benadryl (diphenhydrAMINE) 25 mg Route: IVP; Site: right antecubital; st1 21:25 Follow up: Response: No adverse reaction al4 19:27 Drug: NS 0.9% 500 ml Route: IV; Rate: bolus; Site: right antecubital; st1 19:27 Not Given (Patient Refused): Tylenol 1000 mg PO once st1 19:33 Not Given (Medication not available ): Compazine (prochlorperazine) 10 mg IVP once st1 19:34 Drug: Reglan (metoCLOPramide) 10 mg Route: IVP; Site: right antecubital; st1 21:25 Follow up: Response: No adverse reaction al4 Disposition Summary: 07/25/21 21:10 Discharge Ordered Location: Home mh7 Problem: an ongoing problem mh7 Symptoms: have improved mh7 Condition: Stable [facility] Diagnosis - Headache [facility] - Head Contusion, Scalp Hematoma, Recent Fall from Wheelchair [facility] Followup: [facility] - With: Private Physician - When: 1 - 2 days - Reason: Worsening of condition, Recheck today's complaints, Continuance of care, Re-evaluation by your physician Discharge Instructions: - Discharge Summary Sheet [facility] - Hematoma, [id number] [facility] - Facial or Scalp Contusion, [id number] [facility] Forms: - Medication Reconciliation Form [facility] - Thank You Letter [facility] - Antibiotic Education [facility] - Prescription Opioid Use [facility] Signatures: Dispatcher [employer] Sánchez Pfeiffer MD MD 7 Pamela Lux RN RN st1 Anthony Olson MD MD jr11 Odalys Mai RN RN ss7 Jeff Fitzgerald
--- NOTE | 2021-07-25 21:10 | ER ---
Nurse's Notes [facility] Name: Karen Shah Age: 51 yrs Sex: Female : 1970 Arrival Date: 07/25/2021 Time: 18:00 Bed 8 Private MD: Diagnosis: Headache;Head Contusion, Scalp Hematoma, Recent Fall from Wheelchair Presentation: 07/25 18:01 Chief complaint: Patient states: Pt states she fell yesterday and hit her and was seen ss7 here. Dx with concussion but head is still hurting. Pt has taken lortab and four strength tylenol with no relief. Last dose was noon. Coronavirus screen: Vaccine status: Patient reports receiving the 2nd dose of the covid vaccine. Ebola Screen: No symptoms or risks identified at this time. Initial Sepsis Screen: Does the patient meet any 2 criteria? HR > 90 bpm. No. Patient's initial sepsis screen is negative. Does the patient have a suspected source of infection? No. Patient's initial sepsis screen is negative. Risk Assessment: Do you want to hurt yourself or someone else? Patient reports no desire to harm self or others. Onset of symptoms was July 24, 2021. 18:01 Method Of Arrival: Wheelchair [facility] 18:01 Acuity: ARIEL 3 7 Triage Assessment: 18:03 Headache History: The patient has had previous headaches and this one is similar to [facility] previous episodes. General: Appears uncomfortable, Behavior is calm, cooperative. Pain: Pain currently is 10 out of 10 on a pain scale. at worst was 10 out of 10 on a pain scale. Pain began 1 day ago. Also complains of nausea. Historical: - Allergies: 18:03 Adhesives; 7 18:03 Toradol; 7 18:03 tramadol; 7 - PMHx: 18:03 angina pectoris; CAD; CVA; Diabetes - IDDM; High Cholesterol; Hypertension; Myocardial [facility] infarction; Seizures; - PSHx: 18:03 CABG x 2; section; right AKA; 7 - Immunization history:: Pneumococcal vaccine is not up to date, Flu vaccine status is unknown. - Social history:: Smoking status: Patient reports the use of cigarette tobacco products, smokes one-half pack cigarettes per day. Screenin:14 Abuse screen: Denies threats or abuse. Denies injuries from another. Nutritional ph screening: No deficits noted. Tuberculosis screening: No symptoms or risk factors identified. Fall Risk Fall in past 12 months (25 points). Secondary diagnosis (15 points) impaired mobility, No IV (0 pts). Ambulatory Aid- None/Bed Rest/Nurse Assist (0 pts). Gait- Impaired (20 pts.). Mental Status- Oriented to own ability (0 pts). Total Mccall Fall Scale indicates High Risk Score (45 or more points). Fall prevention measures have been instituted. Side Rails Up X 2 Placed Close to Nursing Station Frequent Obs/Assessments Occuring Family Present and informed to notify staff if the need to leave the bedside As available patient and family educated on Fall Prevention Program and Strategies. Assessment: 19:02 General: Appears in no apparent distress. uncomfortable, Behavior is cooperative, ph appropriate for age, crying, fussy. Pain: Complains of pain in left parietal area. Neuro: Level of Consciousness is awake, alert, obeys commands, Oriented to person, place, time, situation, Reports headache. Cardiovascular: Capillary refill < 3 seconds in bilateral fingers Patient's skin is warm and dry. Respiratory: Airway is patent Respiratory effort is even, unlabored. GI: Reports nausea, Patient currently denies vomiting. Derm: Skin is intact, is healthy with good turgor, Skin is pink, warm \T\ dry. Musculoskeletal: Circulation, motion, and sensation intact. Range of motion: intact in all extremities. 19:37 Reassessment: the patient states she is refusing all PO medication and that she will st1 only take IV pain medications for her headache. I gave the patient an overview on the medication the doctor ordered. She agreed only to take the IV medication (please see MAR) and refused PO medication. Dr. Nice was updated on the patient noncompliance and medication request. 20:17 Reassessment: Patient is awake and alert. Patient is in no apparent distress. al4 21:23 Reassessment: Patient is alert, oriented x 3, equal unlabored respirations, skin al4 warm/dry/pink. Vital Signs: 18:01 BP 142 / 97; Pulse 116; Resp 16; Temp 98.1; Pulse Ox 98% ; Weight 63.5 kg; Height 5 ft. ss7 4 in. (162.56 cm); Pain 10/10; 19:40 BP 162 / 96; Pulse 102; Resp 16; Pulse Ox 98% ; al4 20:00 BP 144 / 97; Pulse 101; Resp 16 S; Pulse Ox 98% on R/A; al4 20:58 BP 150 / 84; Pulse 101; Resp 18; Pulse Ox 98% on R/A; st1 21:23 BP 114 / 88; Pulse 105; Resp 18 S; Pulse Ox 100% on R/A; al4 18:01 Body Mass Index 24.03 (63.50 kg, 162.56 cm) ss7 Alyssa Coma Score: 18:51 Eye Response: spontaneous(4). Verbal Response: oriented(5). Motor Response: obeys jr11 commands(6). Total: 15. ED Course: 18:00 Patient arrived in ED. mr 18:03 Triage completed. ss7 18:03 Arm band placed on right wrist. ss7 18:07 Anthony Olson MD is Attending Physician. jr11 18:14 Erica Hester RN is Primary Nurse. ph 18:14 Patient has correct armband on for positive identification. Bed in low position. Call ph light in reach. Side rails up X 1. Pulse ox on. NIBP on. Door closed. Noise minimized. 18:42 CT Head Brain wo Cont In Process Unspecified. EDMS 19:03 Attending Physician role handed off by Anthony Olson MD 7 19:03 Sánchez Nice MD is Attending Physician. [facility] 19:03 Missed attempt(s): 24 gauge in left forearm. Bleeding controlled, band aid applied, ph catheter tip intact. Missed attempt(s): 22 gauge in left forearm. Bleeding controlled, band aid applied, catheter tip intact. 19:05 Primary Nurse role handed off by Erica Hester RN 2 19:06 Pamela Lux RN is Primary Nurse. st1 19:19 No provider procedures requiring assistance completed. Inserted saline lock: 22 gauge st1 in right antecubital area, using aseptic technique. 21:23 IV discontinued, intact, bleeding controlled, No redness/swelling at site. Pressure al4 dressing applied. Administered Medications: 19:27 Drug: Benadryl (diphenhydrAMINE) 25 mg Route: IVP; Site: right antecubital; st1 21:25 Follow up: Response: No adverse reaction al4 19:27 Drug: NS 0.9% 500 ml Route: IV; Rate: bolus; Site: right antecubital; st1 19:27 Not Given (Patient Refused): Tylenol 1000 mg PO once st1 19:33 Not Given (Medication not available ): Compazine (prochlorperazine) 10 mg IVP once st1 19:34 Drug: Reglan (metoCLOPramide) 10 mg Route: IVP; Site: right antecubital; st1 21:25 Follow up: Response: No adverse reaction al4 Outcome: 21:10 Discharge ordered by . [facility] 21:22 Discharged to home via wheelchair, with family. al4 21:22 Condition: stable 21:22 Discharge instructions given to patient, Instructed on discharge instructions, follow up and referral plans. Demonstrated understanding of instructions, follow-up care. 21:24 Patient left the ED. al4 Signatures: Dispatcher [employer] EDAZ HartmanThea Erica Hester RN RN [facility] Sánchez Nice MD MD 7 Jeff Fitzgerald al4 Pamela Lux RN RN st1 Anthony Olson MD MD jr11 Odalys Mai RN RN ss7
[2021-07-25 21:31] VITALS: TEMP 98.1
[2021-07-25 21:36] VITALS: BP 114/88; O2SAT 100
== END 2021-07-25 21:24 | disposition home or self-care (01) ==
LOC: ER 17:56
DX: S00.03XA Contusion of scalp, initial encounter (principal); W05.0XXA Fall from non-moving wheelchair, initial encounter; E11.9 Type 2 diabetes mellitus without complications; I10 Essential (primary) hypertension; Z95.1 Presence of aortocoronary bypass graft; Z89.611 Acquired absence of right leg above knee; Z88.5 Allergy status to narcotic agent; Z91.048 Other nonmedicinal substance allergy status
CPT/HCPCS: 70450; 96375; 96374; 99284; J2765; J1200; J7040

== ENCOUNTER 2021-09-07 00:07 | Emergency (ER) | payer OTHER ==
--- OUTSIDE RECORDS SUMMARY | 2021-09-07 00:15 | XMS REPORT | Continuity of Care Document ---
:1970 Author Organization [facility] t Address [address] [place] [address] Care Team Providers Name Role Phone Lucas BROWN, A Primary Care Physician BANG Attending Clinician Unavailable Michael VILLEGAS Attending Clinician Unavailable Doctor Unassigned, Name Attending Clinician Unavailable Lucas BROWN, A Attending Clinician Payers Payer Name Policy Type Policy Number Effective Date Expiration Date [facility] PART A [id number] 2017 \T\ B 00:00:00 Problems Condition Condition Condition Status Onset Resolution Last Treating Co mments Source Name Details Category Date Date Treatment Clinician Date UTI UTI Disease Active Univers (urinary (urinary 8-20 ity of tract tract 00:00: [place] infection) infection) 00 Me dical Branch Dizziness Dizziness Disease Active Uni vers 8-20 ity of 00:00: [place] 00 Medical Branch Weakness Weakness Disease Active Unive rs 8-20 ity of 00:00: [place] 00 Medical Branch CAD in CAD in Disease Active Univers pala pala 7-05 ity of artery artery 00:00: 00 Medical Branch Hypoglycem Hypoglycem Disease Active U nivers ia ia 6-11 ity of 00:00: [place] 00 Medical Branch 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 5-06 it y of on on 00:00: 00 Medical Branch Poor Poor Disease Active 2021-0 Univers appetite appetite 5-06 ity of 00:00: [...] 00:00: [place] involving involving 00 Medi blanquita [place] Branch coronary coronary artery of artery of [place] heart heart without without angina angina pectoris [...] f urinary urinary 00:00: g of this [place] incontinen incontinen 00 note Me dical ce, ce, might be Branch female) female) different from the original. Added automatic ally from request for surgery [id number] High High Disease Active Univers cholestero cholestero it y of l l [facility] HTN HTN Disease Active Univers (hypertens (hypertens it y of ion) ion) [facility] GERD GERD Disease Active Univers (gastroeso (gastroeso it y of phageal phageal [place] reflux reflux Medical disease) disease) Branch DM DM Disease Active Univers (diabetes (diabetes ity of mellitus) mellitus) [facility] Depression Depression Disease Active U nivers ity of [facility] CVA CVA Disease Active Univers (cerebral (cerebral ity of vascular vascular [place] accident) accident) [facility] CHF CHF Disease Active Univers (congestiv (congestiv it y of e heart e heart [place] failure) failure) [facility] [place] Anxiety Anxiety Disease Active Univers ity of [facility] Angina Angina Disease Active Univers pectoris pectoris ity [facility] H/O right H/O right Disease Active Uni vers coronary coronary ity of artery artery [place] stent stent Medical placement placement Bran ch Hyperlipid Hyperlipid Disease Active U nivers emia, emia, ity of unspecifie [place]specifie [place] d Medical hyperlipid hyperlipid Br anch emia type emia type Essential Essential Disease Active Uni vers hypertensi hypertensi it y of [place], benign [place], benign [place] [facility] Branch Hx of CABG Hx of CABG Disease Active U nivers ity [facility] Migraines Migraines Disease Active Uni vers ity [facility] Seizures Seizures Disease Active Unive rs ity [facility] Unilateral Unilateral Disease Active U nivers AKA, right AKA, right it y of [facility] History of History of Problem Active C [...] [facility] Chronic Chronic Problem Active [facility] pain pain [facility] disorder disorder [facility]ori a [facility] half-way half-way Problem Active [facility] current current [facility] - use of use of Memoria insulin insulin l [facility] Neuropathy Neuropathy Problem Active [facility] Depression Depression Problem Active [facility] with with [facility] - anxiety anxiety [facility]oria l [facility] HTN HTN Problem Active [facility] (hypertens (hypertens Charley kes - ion), ion), Memoria benign benign l [facility] Seizures Seizures Problem Active [facility] Coronary Coronary Problem Active [facility] t artery artery [facility] - disease disease Memoria involving involving l coronary coronary Outpat i bypass bypass ent graft of graft of Clinic s [place] heart with heart with angina angina pectoris pectoris Dependent Dependent Problem Active [facility] on on [facility] - wheelchair wheelchair Me moria l [facility] History of History of Problem Active C [facility] right right [facility] - above knee above knee Me moria amputation amputation l [facility] Allergies, Adverse Reactions, Alerts [...] Medical s Branch KETOROLA DRUG Active Hives Univers C INGREDI 7-20 ity of TROMETHA 00:00: [place] MINE 00 Medical Branch TRAMADOL DRUG Active Hives Univers INGREDI 7-20 ity of 00:00: [place] 00 Medical Branch Toradol Adverse Active Info Not [facility] Reaction Available [facility] tramadol Adverse Active Info Not [facility] Reaction Available [facility] Social History Social Habit Start Date Stop Date Quantity Comments Source History of tobacco Cigarette Smoker University of use [facility] Exposure to Not sure University of SARS-CoV-2 (event) [facility] Alcohol intake 2021-06-21 2021-06-21 Ex-drinker [facility] 00:00:00 00:00:00 (finding) [facility] Education 2021-01-15 2021-01-15 12 University of 00:00:00 00:00:00 [facility] Branch History SDOH 2020-05-08 2020-05-08 99 University o f Alcohol [facility] 00:00[facility]00 [facility] 2020-05-08 2020-05-08 99 University o f Alcohol Std Drinks 00:00:00 00:00:00 [place] [facility] History SDSC 2020-05-08 2020-05-08 99 [place] o f Alcohol Binge 00:00:00 00:00:00 [facility] Branch Tobacco Comment 2020-04-03 2020-04-03 smoking since 12 Uni versity of 00:00:00 00:00:00 years old [facility] Alcohol Comment 2019-10-11 2019-10-11 rare Universit y of 00:00:00 00:00:00 [facility] Cigarettes smoked 2018-02-21 2018-02-21 Univers ity of current (pack per 00:00:00 00:00:00 ) - Reported Branch Tobacco use and 2018-02-21 2018-02-21 Never used Universit y of exposure 00:00:00 00:00:00 [facility] Sex [birth year] At [birth year] Universit y of 00:00:00 00:00:00 [facility] Smoking Status Start Date Stop Date Source Current every day smoker 2018-02-21 00:00:00 Uni versity of [facility] Medications Ordered Filled Start Stop Current Ordering Indication Dosage Frequency Signature Comments Components Source Medication Medication Date Date Medication? Clinician (SIG) Name Name GABAPENTIN Yes [id number] TAKE 1 Univers 800 mg 2-25 TABLET BY ity of tablet 00:00: MOUTH [place] [address] THREE Medical TIMES Branch DAILY MIRTAZAPINE 2020-05 Yes [id number] 15mg TAKE 1 Univers 15 mg 2-20 TABLET BY ity of tablet 00:00: MOUTH AT [place] [address] BEDTIME [facility] MIRTAZAPINE 2020-05 Yes [id number] 15mg TAKE 1 Univers 15 mg 2-20 TABLET BY ity of tablet 00:00: MOUTH AT [place] 00 BEDTIME Medical Branch MIRTAZAPINE 2020-1 Yes [id number] 15mg TAKE 1 Univers 15 mg 2-20 TABLET BY ity of tablet 00:00: MOUTH AT [place] BEDTIME Medical Branch MIRTAZAPINE 2020-1 Yes [id number] 15mg TAKE 1 Univers 15 mg 2-20 TABLET BY ity of tablet 00:00: MOUTH AT [place] BEDTIME Medical Branch gabapentin 2020-0 Yes [id number] 800mg Take 1 Univers 800 mg 8-20 tablet by ity of tablet 00:00: mouth 3 (three) Medical times Branch daily. gabapentin 2020-0 Yes [id number] 800mg Take 1 Univers 800 mg 8-20 tablet by ity of tablet 00:00: mouth 3 (three) Medical times Branch daily. gabapentin 2020-0 Yes [id number] 800mg Take 1 Univers 800 mg 8-20 tablet by ity of tablet 00:00: mouth 3 (three) Medical times Branch daily. ondansetron 2020-0 Yes [id number] 4mg Take 1 Univers 4 mg 8-06 tablet by ity of disintegrat 00:00: mouth [place] ing tablet 00 every 8 Medica l (eight) Branch hours as needed for Nausea and Vomiting (N/V). ondansetron 2020-0 Yes [id number] 4mg Take 1 Univers 4 mg 8-06 tablet by ity of disintegrat 00:00: mouth [place] ing tablet 00 every 8 Medica l (eight) Branch hours as needed for Nausea and Vomiting (N/V). ondansetron 2020-0 Yes [id number] 4mg Take 1 Univers 4 mg 8-06 tablet by ity of disintegrat 00:00: mouth [place] ing tablet 00 every 8 Medica l (eight) Branch hours as needed for Nausea and Vomiting (N/V). ondansetron 2020-0 Yes [id number] 4mg Take 1 Univers 4 mg 8-06 tablet by ity of disintegrat 00:00: mouth [place] ing tablet 00 every 8 Medica l (eight) Branch hours as needed for Nausea and Vomiting (N/V). aspirin 81 2020-0 Yes [id number] 81mg Take 1 U nivers mg chewable 7-07 tablet by ity of tablet 00:00: mouth [place] 00 daily. Medical Branch clopidogreL 1-0 Yes [id number] 75mg Take 1 Univers 75 mg 7-07 tablet by ity of tablet 00:00: mouth [place] 00 daily. Medical Branch aspirin 81 1-0 Yes [id number] 81mg Take 1 U nivers mg chewable 7-07 tablet by ity of tablet 00:00: mouth [place] 00 daily. Medical Branch clopidogreL 2021-0 Yes [id number] 75mg Take 1 Univers 75 mg 7-07 tablet by ity of tablet 00:00: mouth [place] 00 daily. Medical Branch aspirin 81 1-0 Yes [id number] 81mg Take 1 U nivers mg chewable 7-07 tablet by ity of tablet 00:00: mouth [place] 00 daily. Medical Branch clopidogreL 2021-0 Yes [id number] 75mg Take 1 Univers 75 mg 7-07 tablet by ity of tablet 00:00: mouth [place] 00 daily. Medical Branch aspirin 81 1-0 Yes [id number] 81mg Take 1 U nivers mg chewable 7-07 tablet by ity of tablet 00:00: mouth [place] 00 daily. Medical Branch clopidogreL 1-0 Yes [id number] 75mg Take 1 Univers 75 mg 7-07 tablet by ity of tablet 00:00: mouth [place] 00 daily. Medical Branch ezetimibe 1-0 Yes [id number] 10mg Take 1 U nivers 10 mg 6-18 tablet by ity of tablet 00:00: mouth [place] 00 daily. Medical Branch furosemide 1-0 Yes [id number] 1 tablet Univers 20 mg 6-18 02 as needed ity of tablet 00:00: for leg [place] 00 swelling Medical Branch ezetimibe 1-0 Yes [id number] 10mg Take 1 U nivers 10 mg 6-18 tablet by ity of tablet 00:00: mouth [place] 00 daily. Medical Branch furosemide 2021-0 Yes [id number] 1 tablet Univers 20 mg 6-18 02 as needed ity of tablet 00:00: for leg [place] 00 swelling Medical Branch ezetimibe 2021-0 Yes [id number] 10mg Take 1 U nivers 10 mg 6-18 tablet by ity of tablet 00:00: mouth [place] 00 daily. Medical Branch furosemide 2021-0 Yes [id number] 1 tablet Univers 20 mg 6-18 02 as needed ity of tablet 00:00: for leg [place] 00 swelling Medical Branch ezetimibe Yes [id number] 10mg Take 1 U nivers 10 mg 6-18 tablet by ity of tablet 00:00: mouth 00 daily. Medical Branch furosemide Yes [id number] 1 tablet Univers 20 mg 6-18 02 as needed ity of tablet 00:00: for leg 00 swelling Medical Branch insulin NPH Yes [id number] 40U inject Univers and regular 5-12 40-50 ity of human 70-30 00:00: Units [place] (NOVOLIN 00 under the Medica l 70/30 U-100 skin 2 Branch INSULIN) (two) 100 unit/mL times (70-30) daily injection before breakfast and dinner. insulin NPH Yes [id number] 40U inject Univers and regular 5-12 40-50 ity of human 70-30 00:00: Units [place] (NOVOLIN 00 under the Medica l 70/30 U-100 skin 2 Branch INSULIN) (two) 100 unit/mL times (70-30) daily injection before breakfast and dinner. insulin NPH Yes [id number] 40U inject Univers and regular 5-12 40-50 ity of human 70-30 00:00: Units [place] (NOVOLIN 00 under the Medica l 70/30 U-100 skin 2 Branch INSULIN) (two) 100 unit/mL times (70-30) daily injection before breakfast and dinner. insulin NPH Yes [id number] 40U inject Univers and regular 5-12 40-50 ity of human 70-30 00:00: Units [place] (NOVOLIN 00 under the Medica l 70/30 U-100 skin 2 Branch INSULIN) (two) 100 unit/mL times (70-30) daily injection before breakfast and dinner. atorvastati Yes [id number] 80mg Take 1 Univers n 80 mg 5-06 tablet by ity of tablet 00:00: mouth at [place] 00 bedtime. Medical Branch atorvastati Yes [id number] 80mg Take 1 Univers n 80 mg 5-06 tablet by ity of tablet 00:00: mouth at [place] 00 bedtime. [facility] Branch atorvastati Yes [id number] 80mg Take 1 Univers n 80 mg 5-06 tablet by ity of tablet 00:00: mouth at [place] 00 bedtime. Medical Branch atorvastati Yes [id number] 80mg Take 1 Univers n 80 mg [...] [place] 00 involving bedtime. Medica l pal[place] Branch coronary artery of [place] heart without angina pectoris glipiZIDE Yes Type [...] [place] 00 involving bedtime. Medica l [place] Branch coronary artery of pala heart without angina pectoris ezetimibe 2020- No [...] Uncontrolle 60U inject 60 Univers and regular -08 10-14 d type 2 Units it y of [...] :00 involving daily for Medi blanquita tablet pala 30 days. Branch coronary artery of [place] heart without angina pectoris SITagliptin 2020- No [...] :00 involving daily for Medi blanquita tablet pala 30 days. Branch coronary artery of pala heart without angina pectoris SITagliptin 2020- No [...] human 70-30 00:00: 00:00 diabetes under the [place] (NOVOLIN 00 :00 mellitus skin 2 Medic [...] human 70-30 00:00: 00:00 diabetes under the [place] (NOVOLIN 00 :00 mellitus skin 2 Medic [...] Medical DAILY WITH Branch MEALS pantoprazol Yes [id number] 40mg Take 1 Univers e 40 mg EC 1-11 tablet by ity of tablet 00:00: mouth [place] 00 daily. Medical Branch pantoprazol Yes [id number] 40mg Take 1 Univers e 40 mg EC 1-11 tablet by ity of tablet 00:00: mouth [place] 00 daily. Medical Branch pantoprazol Yes [id number] 40mg Take 1 Univers e 40 mg EC 1-11 tablet by ity of tablet 00:00: mouth [place] 00 daily. Medical Branch pantoprazol Yes [id number] 40mg Take 1 Univers e 40 mg [...] Medical times Branch daily. gabapentin 2020- Yes Neuropathy 800mg Take 1 Univers 800 mg 2-22 tablet by ity of tablet 00:00: mouth 3 00 (three) Medical times Branch daily. clopidogreL 2019-0 [...] as 00 :00 involving bedtime. Medica l pala Branch coronary artery of pala heart without angina pectoris atorvastati 2020- No Coronary 80mg Take 1 Univers n 80 mg 3-20 -06 artery tablet by ity of tablet 00:00: 00:00 disease mouth at [place] as 00 :00 involving bedtime. Medica l pala Branch coronary artery of pala heart without angina pectoris nitroglycer 2018-05 Yes [id number] 1 tab SL Univers in 0.4 mg 0-29 q5min up ity of sublingual 00:00: to 3 doses [place] tablet 00 PRN chest Medical pain, then Branch activate 911. nitroglycer 2018-05 Yes [id number] 1 tab SL Univers in 0.4 mg 0-29 q5min up ity of sublingual 00:00: to 3 doses [place] tablet 00 PRN chest Medical pain, then Branch activate 911. nitroglycer 2018-05 Yes [id number] 1 tab SL Univers in 0.4 mg 0-29 q5min up ity of sublingual 00:00: to 3 doses [place] tablet 00 PRN chest Medical pain, then Branch activate 911. nitroglycer 2018-05 Yes [id number] 1 tab SL Univers in 0.4 mg [...] [facility] [place] Yes Dada [address] [facility] [...] Bisulfate [facility] Furosemide Furosemide Yes Dada [address] [facility] Immunizations Ordered Filled Immunization Date Status Comments Sourc e Immunization Name Name SARS-COV-2 COVID-19 2021-01-17 [...] 2021-06-21 22:04:00 136 mm[Hg] Univer sit of [place] pressure [facility] Diastolic blood 2021-06-21 22:04:00 81 mm[Hg] Unive rsity of [facility] Heart rate 2021-06-21 22:04:00 96 /min [facility] Oxygen saturation 2021-06-21 22:03:00 99 /[facility] Br anch by Pulse oximetry Heart rate 2020-10-01 20:20:00 60 /min [facility] Systolic blood 2020-10-01 20:20:00 120 mm[Hg] Univer sity of [place] pressure [facility] Diastolic blood 2020-10-01 20:20:00 80 mm[Hg] Unive rsity of [facility] Heart rate 2020-10-01 20:20:00 60 /min [facility] Systolic blood 2020-10-01 20:20:00 120 mm[Hg] Univer sity of [place] pressure Medical Branch Diastolic blood 2020-10-01 20:20:00 80 mm[Hg] Unive rsity of [facility] Procedures Procedure Date / Time Performed Performing Clinician Sour e EXTERNAL PROVIDER 2021-08-09 05:01:00 Doctor Unassigned, No Univ ersity [facility] RECORDS Name Medical Branch EXTERNAL PROVIDER 2021-07-19 06:01:00 [facility] Branch POCT GLUCOSE 2021-06-21 22:47:00 Dev Zavala [facility] [place] (AUTOMATED) Medical Branch POCT GLUCOSE(AGE 2021-06-21 00:00:00 Dev Zavala Univers ity of [place] >30DAYS) Medical Branch Plan of Care Planned Activity Planned Date Details Comments Source Future Scheduled 2022 Screening for University [facility] Test 00:00:00 malignant neoplasm of Medica l Branch colon (procedure) [code = 903681869] Future Scheduled 2022 Screening for University [facility] Test 00:00:00 malignant neoplasm of Medica l Branch colon (procedure) [code = 554742080] Future Scheduled 2021-09-07 Creatinine [facility] [place] Test 00:00:00 measurement Medical Branch (procedure) [code = 55935787] Future Scheduled 2021-09-07 Creatinine [facility] [place] Test 00:00:00 measurement Medical Branch (procedure) [code = 90019499] Future Scheduled 2021-09-05 Calculated low Universit y of [place] Test 00:00:00 density lipoprotein Medical Branch cholesterol level (procedure) [code = 753722282] Future Scheduled 2021-09-05 Calculated low Universit y of [place] Test 00:00:00 density lipoprotein Medical Branch cholesterol level (procedure) [code = 462482016] Future Scheduled 2021-05-08 Depression screening Uni versity of [place] Test 00:00:00 (procedure) [code = Medical Branch 182892315] Future Scheduled 2021-05-08 Depression screening Uni versity of [place] Test 00:00:00 (procedure) [code = Medical Branch 392932626] Future Scheduled 2021-03-07 Hemoglobin A1c Universit y of [place] Test 00:00:00 measurement Medical Branch (procedure) [code = 53269723] Future Scheduled 2021-03-07 Hemoglobin A1c Universit y of [place] Test 00:00:00 measurement Medical Branch (procedure) [code = 86001046] Future Scheduled 2021-01-[address] [facility] Test 00:00:00 (Season Ended) [code Medical Branch = INFLUENZA VACCINE (Season Ended)] Future Scheduled 2021-01-[address] Univer [facility] Test 00:00:00 (Season Ended) [code Medical Branch = INFLUENZA VACCINE (Season Ended)] Future Scheduled 2020-10-31 Screening for [facility] Test 00:00:00 malignant neoplasm of Medica l Branch breast (procedure) [code = 967309511] Future Scheduled 2020-10-31 Screening for [facility] Test 00:00:00 malignant neoplasm of Medica l Branch breast (procedure) [code = 262351125] Future Scheduled 2020-09-25 Screening for [facility] Test 00:00:00 malignant neoplasm of Medica l Branch cervix (procedure) [code = 939835262] Future Scheduled 2020-09-25 Screening for [facility] Test 00:00:00 malignant neoplasm of Medica l Branch cervix (procedure) [code = 401277110] Future Scheduled 2020-05-10 Diabetic foot [facility] Test 00:00:00 examination Medical Branch (regime/therapy) [code = 153643920] Future Scheduled 2020-05-10 Diabetic foot [facility] Test 00:00:00 examination Medical Branch (regime/therapy) [code = 665855439] Future Scheduled 2019-09-01 Microalbumin [facility] Test 00:00:00 measurement, urine, Medical Branch quantitative (procedure) [code = 036269594] Future Scheduled 2019-09-01 Microalbumin [facility] Test 00:00:00 measurement, urine, Medical Branch quantitative (procedure) [code = 363639934] Future Scheduled 1991 DTaP,Tdap,and Td Univers ity [facility] Test 00:00:00 Vaccines (1 - Tdap) Medical Branch [code = DTaP,Tdap,and Td Vaccines (1 - Tdap)] Future Scheduled 1991 DTaP,Tdap,and Td Univers ity [facility] Test 00:00:00 Vaccines (1 - Tdap) Medical Branch [code = DTaP,Tdap,and Td Vaccines (1 - Tdap)] Future Scheduled 1990 Hepatitis C screening Un iversity [facility] Test 00:00:00 (procedure) [code = Medical Branch 456418893] Future Scheduled 1990 Hepatitis C screening Un iversity [facility] Test 00:00:00 (procedure) [code = Medical Branch 730555180] Future Scheduled 1988 SARS-CoV-2 (COVID-19) Un iversity of [place] Test 00:00:00 Vaccine (1) [code = Medical Branch SARS-CoV-2 (COVID-19) Vaccine (1)] Future Scheduled 1988 SARS-CoV-2 (COVID-19) Un iversity of [place] Test 00:00:00 Vaccine (1) [code = Medical Branch SARS-CoV-2 (COVID-19) Vaccine (1)] Future Scheduled 1982 Examination of retina Un iversity of [place] Test 00:00:00 (procedure) [code = Medical Branch 122373415] Future Scheduled 1982 Examination of retina Un iversity of [place] Test 00:00:00 (procedure) [code = Medical Branch 332102892] Future Scheduled 1978 PNEUMOCOCCAL 0-64 Univer sity of [place] Test 00:00:00 YEARS COMBINED SERIES Medica l Branch (1 of 1 - PPSV23) [code = PNEUMOCOCCAL 0-64 YEARS COMBINED SERIES (1 of 1 - PPSV23)] Future Scheduled 1978 PNEUMOCOCCAL 0-64 Univer sity of [place] Test 00:00:00 YEARS COMBINED SERIES Medica l Branch (1 of 1 - PPSV23) [code = PNEUMOCOCCAL 0-64 YEARS COMBINED SERIES (1 of 1 - PPSV23)] Encounters Start End Encounter Admission Attending Care Care Encounter Source Date/Time Date/Time Type Type Clinicians Facility Department ID 2021-10-15 2021-10-15 Outpatient Sonya CUENCA [facility] [id number] Univers 09:00:00 09:00:00 ALDA [id number] yue [facility] 2021-10-15 2021-10-15 Outpatient R BANG [facility] [id number] Univers 09:00:00 09:00:00 ALDA turner [facility] 2021-08-27 2021-08-27 Outpatient R BAKARI [facility] [id number] Univers 16:00:00 17:02:36 ANAY [facility] 2021-08-09 2021-08-09 Irene TOM [id number] Univers 00:00:00 00:00:00 Only Unassigned, ARTURO [id number] ity of [place] [facility] [id number] [place] [phone] [address] 2021-07-19 2021-07-19 Orders Doctor VAISHALI [id number] Univers 00:00:00 00:00:00 Only Unassigned, ARTURO [id number] ity of [place] [facility] [id number] [place] [phone] [address] 2021-07-05 2021-07-05 Telephone [facility] [id number] Univers 00:00:00 00:00:00 Wondiful A HEALTH [id number] ity of [place] [id number] [place] as DILLAN?BLEA [phone] [address] OFFICE BUILDING 2021-06-21 2021-06-21 Office [facility] [id number] [facility] 16:00:00 16:54:48 Visit Wondiful A HEALTH [id number] ity of [place] [id number] [place] DILLAN?BLEA [phone] [address] OFFICE BUILDING 2020-10-01 2020-10-01 Office [facility] [id number] 15:08:27 16:09:31 Visit Wondiful A Health [id number] [place] [id number] Professio [phone] [place] [id number] Office [facility] 2018-06-27 2018-06-27 [facility] [id number] 11:57:00 11:57:00 t [employer] [facility] Medicine Outpati ent Clinics 2018-06-15 2018-06-15 [facility] [id number] 16:24:00 16:24:00 t [employer] [facility] Medicine Outpati ent [facility] [facility] 2018-06-13 2018-06-13 [facility] [id number] [facility] 13:30:00 13:30:00 t [employer] [facility] 2017-12-12 2017-12-12 [facility] [id number] [address] 13:22:00 13:22:00 t [employer] [facility] 2017-11-20 2017-11-20 [facility] [id number] 10:30:00 10:30:00 [employer] [facility] 2017-11-02 2017-11-02 [facility] [id number] 15:15:00 15:15:00 [employer] [facility] [facility] ent Clinics Results Test Description Test Time Test Comments Results Result Comments Source POCT GLUCOSE (AUTOMATED) 2021-06-21 22:49:56 Test Item Value Reference Range Interpretation Comme nts POCT GLU (test code = [id number]) 384 mg/dL 70-110 H Lab Interpretation (test code = 72405-9) [facility] >30[facility]2021-06-21 22:30:00 Test Item Value Reference Range Interpretation Comments POCT Glu (age>30days) (test code = 384 mg/dL 70-110 A 3342) Lab Interpretation (test code = Abnormal 63185-9) [facility]
[2021-09-07] MEDS ORDERED: NA CHLORIDE 0.9% 50 ML ONE ×2 (01:26→03:26)
[2021-09-07] MEDS ORDERED: NA CHLORIDE 0.9% 1,000 ML ONE ×2 (01:26→02:57)
[2021-09-07] MEDS ORDERED: PROMETHAZINE INJ 25 MG/ML AMP ONE (01:26)
[2021-09-07 02:06] LABS: Absolute Lymphocytes (CBC) 1.9 K/uL (0.7-4.9); Hematocrit 44.5 % (36.0-45.0); Lymphocytes % 25.2 % (15.3-44.8); MPV 8.5 fL (7.6-11.3); Protime INR 0.93; RBC Red Blood Cell Count 4.85 M/uL (3.86-4.86)
[2021-09-07 02:06] LABS: Arterial Blood Carboxyhemoglob 4.4 % (0-1.5); Blood Gas Oxyhemoglobin 92.3 % (94-97); Blood O2 Saturation 97.7 % (92-98.5)
[2021-09-07 02:41] LABS: Albumin 2.7 g/dL (3.4-5.0); Bilirubin Direct 0.1 mg/dL (0-0.2); Bilirubin Total 0.3 mg/dL (0.2-1.0); Magnesium 1.6 mg/dL (1.8-2.4); Potassium 4.1 mmol/L (3.5-5.1); Protein, Total 6.8 g/dL (6.4-8.2); Troponin High Sensitivity 6.3 pg/mL (<58.9)
[2021-09-07] MEDS ORDERED: INSULIN -REGULAR HUMAN 50 UNIT/0.5 ML ML ONE (02:56)
[2021-09-07 03:09] LABS: Urine Blood 1+ (Negative); Urine Glucose 3+ (Negative); Urine Protein Negative (Negative)
[2021-09-07] MEDS ORDERED: CEFTRIAXONE 1000 MG/VIAL ONE (03:26)
[2021-09-07 03:38] LABS: Urine Bacteria >50 /HPF (<20); Urine Mucus 1+ /HPF (NONE SEEN)
--- NOTE | 2021-09-07 04:22 | ER ---
Nurse's Notes [facility] Name: Karen Shah Age: 51 yrs Sex: Female : 1970 Arrival Date: 09/07/2021 Time: 00:13 Bed 16 Private MD: Diagnosis: Dizziness and giddiness;Type 2 diabetes mellitus with hyperglycemia;UTI/ Urinary tract infection, site not specified Presentation: 09/07 00:27 Chief complaint: Patient states: States when standing becomes dizzy and shaky, states ll3 been slurring speech for the past 2 weeks. Coronavirus screen: At this time, the client does not indicate any symptoms associated with coronavirus-19. Ebola Screen: No symptoms or risks identified at this time. Risk Assessment: Do you want to hurt yourself or someone else? Patient reports no desire to harm self or others. Onset of symptoms is unknown. 00:27 Method Of Arrival: Wheelchair ll3 00:27 Acuity: ARIEL 3 ll3 04:23 Initial Sepsis Screen: Does the patient meet any 2 criteria? No. Patient's initial sm5 sepsis screen is negative. Does the patient have a suspected source of infection? No. Patient's initial sepsis screen is negative. Triage Assessment: 00:29 The onset of the patients symptoms was more than six hours ago. The onset of the ll3 patients symptoms was. General: Appears uncomfortable, Behavior is calm, cooperative. Pain: Denies pain. Neuro: Level of Consciousness is awake, alert, obeys commands, Oriented to person, place, time, situation, Speech States speech has been slurred for 1-2 weeks, states "Its been a while". Reports dizziness. : Parent/caregiver report the patient having States has a yeast infection for the past month. Derm: Skin is pink, warm \\T\\ dry. LIBRARIAN: 00:29 LMP N/A - Irregular menses ll3 Historical: - Allergies: 00:29 Adhesives; ll3 00:29 Toradol; ll3 00:29 tramadol; ll3 - PMHx: 00:29 angina pectoris; CAD; CVA; Diabetes - IDDM; High Cholesterol; Hypertension; Myocardial ll3 infarction; Seizures; - PSHx: 00:29 right AKA; section; CABG x 2; Tonsillectomy; ll3 - Immunization history:: Client reports receiving the 2nd dose of the Covid vaccine. - Social history:: Smoking status: Patient reports the use of cigarette tobacco products. Screenin:21 Abuse screen: Denies threats or abuse. Denies injuries from another. Nutritional sm5 screening: No deficits noted. Tuberculosis screening: No symptoms or risk factors identified. Fall Risk No fall in past 12 months (0 pts). Secondary diagnosis (15 points) impaired mobility, IV access (20 points). Ambulatory Aid- None/Bed Rest/Nurse Assist (0 pts). Gait- Normal/Bed Rest/Wheelchair (0 pts) Mental Status- Oriented to own ability (0 pts). Total Mccall Fall Scale indicates Low Risk Score (25-44 pts). Fall prevention measures have been instituted. Placed close to Nursing Station Frequent Obs/Assesments occuring As available Patient and Family Educated on Fall Prevention Program and strategies. Assessment: 01:00 General: Appears in no apparent distress. Behavior is cooperative. Pain: Denies pain. sm5 Neuro: Level of Consciousness is awake, alert, obeys commands, Oriented to person, place, time, situation, Speech is normal, Reports dizziness. Cardiovascular: No deficits noted. Capillary refill < 3 seconds Patient's skin is warm and dry. Respiratory: No deficits noted. Airway is patent Trachea midline Respiratory effort is even, unlabored. 02:05 Reassessment: No changes from previously documented assessment. Patient and/or family sm5 updated on plan of care and expected duration. Pain level reassessed. 03:28 Reassessment: No changes from previously documented assessment. 5 04:23 Reassessment: No changes from previously documented assessment. Patient and/or family sm5 updated on plan of care and expected duration. Pain level reassessed. Vital Signs: 00:27 BP 159 / 93; Pulse 99; Temp 98.0(O); Pulse Ox 100% ; Weight 64.41 kg (R); Height 5 ft. ll3 4 in. (162.56 cm); 03:44 BP 147 / 98; Pulse 68; Resp 17; Pulse Ox 98% on R/A; sm5 04:31 BP 134 / 75; Pulse 79; Resp 18; Pulse Ox 100% on R/A; sm5 00:27 Body Mass Index 24.37 (64.41 kg, 162.56 cm) ll3 ED Course: 00:13 Patient arrived in ED. bp1 00:20 Sánchez Nice MD is Attending Physician. mh7 00:29 Triage completed. ll3 00:29 Arm band placed on Patient placed in an exam room, in a wheelchair, on pulse oximetry. ll3 00:31 Marietta Son, CHIDI is Primary Nurse. sm5 00:45 Inserted saline lock: 22 gauge in left forearm, using aseptic technique. sm5 00:53 XRAY Chest (1 view) In Process Unspecified. EDMS 01:00 CT Head Brain wo Cont In Process Unspecified. EDMS 02:01 Ketone, Serum Sent. sm5 02:02 Basic Metabolic Panel Sent. sm5 02:02 CBC with Diff Sent. sm5 02:02 LFT's Sent. sm5 02:02 Magnesium Sent. sm5 02:02 NT PRO-BNP Sent. sm5 02:02 PT-INR Sent. sm5 02:02 Troponin HS Sent. sm5 03:33 Urine Culture Sent. sm5 03:33 Urine Microscopic Only Sent. sm5 04:23 Patient has correct armband on for positive identification. Call light in reach. Side sm5 rails up X2. 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 Pulse ox on. NIBP on. 04:23 No provider procedures requiring assistance completed. sm5 04:32 IV discontinued, intact, bleeding controlled, No redness/swelling at site. Pressure sm5 dressing applied. Administered Medications: 01:28 Drug: Phenergan (promethazine) 12.5 mg Route: IVP; Site: left forearm; sm5 04:32 Follow up: Response: Nausea is decreased sm5 01:28 Drug: NS 0.9% 1000 ml Route: IV; Rate: 1000 ml; Site: left forearm; sm5 02:32 Follow up: IV Status: Completed infusion; IV Intake: 1000ml sm5 03:00 CANCELLED (Physician Discretion): Insulin Regular Human 10 units IVP once sm5 03:03 Drug: NS 0.9% 1000 ml Route: IV; Rate: 1000 ml; Site: left forearm; sm5 04:15 Follow up: IV Status: Completed infusion; IV Intake: 1000ml sm5 03:03 Drug: Insulin Regular Human 5 units {Co-Signature: ll3 (Yahaira Flower RN).} Route: IVP; sm5 Site: left forearm; 04:24 Follow up: Response: Blood sugar is lowered [facility] 03:33 Drug: Rocephin (cefTRIAXone) 1 grams Route: IV; Rate: per protocol; Site: left forearm; [facility] 03:52 Follow up: IV Status: Completed infusion; IV Intake: 50ml [facility] Point of Care Testing: Blood Glucose: 00:39 Blood Glucose: High (>450 mg/dL); ll3 Ranges: Intake: 02:32 IV: 1000ml; Total: 1000ml. 5 03:52 IV: 50ml; Total: 1050ml. 5 04:15 IV: 1000ml; Total: 2050ml. [facility] Outcome: 04:21 Discharge ordered by . [facility] 04:31 Discharged to home via wheelchair. [facility] 04:31 Condition: stable 04:31 Discharge instructions given to patient, Instructed on discharge instructions, follow up and referral plans. medication usage, Demonstrated understanding of instructions, follow-up care, medications, Prescriptions given X 2. 04:32 Patient left the ED. [facility] Addendum: 09/09/2021 07:38 Addendum: Culture Results: Positive urine culture. Bacteria is resistant to, has i w intermediate sensitivity, or is not tested against prescribed antibiotics. Report given to FLACO for further evaluation and then to risk tech for follow up with patient. Signatures: Dispatcher [employer] EDMS Dali Nieves, Monica Wayne RN, Maurice, MD MD Yahaira Montero RN RN 3 Marietta Son RN RN 5 Yahaira Flower RN 3
--- NOTE | 2021-09-07 04:22 | EDPHYS ---
Physician Documentation [facility] Name: Karen Shah Age: 51 yrs Sex: Female : 1970 Arrival Date: 09/07/2021 Time: 00:13 Bed 16 Private MD: ED Physician Sánchez Nice HPI: 09/07 00:36 This 51 yrs old Female presents to ER via Wheelchair with complaints of mh7 Dizziness, Slurred Speech. 00:36 The patient presents with dizziness, sense of spinning. Onset: The symptoms/episode mh7 began/occurred 2 week(s) ago. 00:36 Context: occurred at home, occurred while the patient was sitting, just prior to the mh7 episode the patient experienced no apparent symptoms. 00:36 Modifying factors: The symptoms are alleviated by nothing, the symptoms are aggravated mh7 by movement of head, changing position. Associated signs and symptoms: Pertinent positives: nausea, vomiting, slurred speech, urinary frequency, increased thirst, Pertinent negatives: abdominal pain, agitation, ataxia, blurred vision, chest pain, combativeness, confusion, diaphoresis, focal weakness, head injury, headache, near-syncope, numbness, palpitations, seizure, shortness of breath, syncope, tingling. Severity of symptoms: At their worst the symptoms were moderate 7 day(s) ago, in the emergency department the symptoms have improved moderately. Patient's baseline: Neuro: alert and fully oriented, Motor: no deficits, Ambulation: unable to walk, uses wheelchair, right lower extremity AKA, Speech: normal, The patient has a previous history of CVA. 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 - Social history:: Smoking status: Patient reports the use of cigarette tobacco products. ROS: 00:36 Constitutional: Negative for fever, chills, and weight loss, Eyes: Negative for injury, mh7 pain, redness, and discharge, ENT: Negative for injury, pain, and discharge, Neck: Negative for injury, pain, and swelling, Cardiovascular: Negative for chest pain, palpitations, and edema, Respiratory: Negative for shortness of breath, cough, wheezing, and pleuritic chest pain, Abdomen/GI: Negative for abdominal pain, nausea, vomiting, diarrhea, and constipation, Back: Negative for injury and pain, MS/Extremity: Negative for injury and deformity, Skin: Negative for injury, rash, and discoloration, Neuro: Negative for headache, weakness, numbness, tingling, and seizure, Psych: Negative for depression, anxiety, suicide ideation, homicidal ideation, and hallucinations, Allergy/Immunology: Negative for hives, rash, and allergies, Hematologic/Lymphatic: Negative for swollen nodes, abnormal bleeding, and unusual bruising. Exam: 00:36 Constitutional: This is a well developed, well nourished patient who is awake, alert, mh7 and in no acute distress. Head/Face: Normocephalic, atraumatic. Eyes: Pupils equal round and reactive to light, extra-ocular motions intact. Lids and lashes normal. Conjunctiva and sclera are non-icteric and not injected. Cornea within normal limits. Periorbital areas with no swelling, redness, or edema. Neck: Trachea midline, no thyromegaly or masses palpated, and no cervical lymphadenopathy. Supple, full range of motion without nuchal rigidity, or vertebral point tenderness. No Meningismus. Chest/axilla: Normal chest wall appearance and motion. Nontender with no deformity. No lesions are appreciated. Cardiovascular: Regular rate and rhythm with a normal S1 and S2. No gallops, murmurs, or rubs. Normal PMI, no JVD. No pulse deficits. Respiratory: Lungs have equal breath sounds bilaterally, clear to auscultation and percussion. No rales, rhonchi or wheezes noted. No increased work of breathing, no retractions or nasal flaring. Abdomen/GI: Soft, non-tender, with normal bowel sounds. No distension or tympany. No guarding or rebound. No evidence of tenderness throughout. Back: No spinal tenderness. No costovertebral tenderness. Full range of motion. Skin: Warm, dry with normal turgor. Normal color with no rashes, no lesions, and no evidence of cellulitis. Psych: Awake, alert, with orientation to person, place and time. Behavior, mood, and affect are within normal limits. 00:36 Musculoskeletal/extremity: right AKA. 00:36 Neuro: Orientation: is normal, Mentation: is normal, Memory: is normal, Cranial nerves: grossly normal, Cerebellar function: is grossly normal, Motor: no acute changes, Sensation: no obvious gross deficits, Gait: not tested. seizure activity, is not displayed by the patient, Abnormal movements: there are no abnormal movements. Vital Signs: 00:27 BP 159 / 93; Pulse 99; Temp 98.0(O); Pulse Ox 100% ; Weight 64.41 kg (R); Height 5 ft. ll3 4 in. (162.56 cm); 03:44 BP 147 / 98; Pulse 68; Resp 17; Pulse Ox 98% on R/A; sm5 04:31 BP 134 / 75; Pulse 79; Resp 18; Pulse Ox 100% on R/A; sm5 00:27 Body Mass Index 24.37 (64.41 kg, 162.56 cm) ll3 MDM: 04:17 Differential diagnosis: cardiac arrhythmia, CVA, hypovolemia, idiopathic dizziness, mh7 near-syncope, syncope, TIA, vertigo, DKA. Data reviewed: vital signs, nurses notes, old medical records, lab test result(s), cardiac enzymes, CBC, electrolytes, urinalysis, EKG, radiologic studies, CT scan, plain films. Data interpreted: Pulse oximetry: on room air is 98 %. Interpretation: normal. Counseling: I had a detailed discussion with the patient and/or guardian regarding: the historical points, exam findings, and any diagnostic results supporting the discharge/admit diagnosis, the presence of at least one elevated blood pressure reading (>120/80) during this emergency department visit, lab results, radiology results, the need for outpatient follow up, to return to the emergency department if symptoms worsen or persist or if there are any questions or concerns that arise at home. Response to treatment: the patient's symptoms have resolved after treatment, the patient's blood pressure is in an acceptable range, mental status has returned to baseline, the patient no longer shows bradycardia, the patient is not short of breath, the patient is not tachycardic, the patient's pain is gone, the patient's temperature has normalized. 04:21 Patient medically screened. 09/07 00:36 Order name: Basic Metabolic Panel; Complete Time: 02:43 09/07 00:36 Order name: CBC with Diff; Complete Time: 02:28 09/07 00:36 Order name: LFT's; Complete Time: 02:43 09/07 00:36 Order name: Magnesium; Complete Time: 02:43 09/07 00:36 Order name: NT PRO-BNP; Complete Time: 02:43 09/07 00:36 Order name: PT-INR; Complete Time: 02:28 [facility] 09/07 00:36 Order name: Troponin HS; Complete Time: 02:43 09/07 00:50 Order name: Glucose, Ancillary Testing; Complete Time: 01:14 EDMS 09/07 01:14 Order name: Ketone, Serum; Complete Time: 02:28 09/07 01:14 Order name: Arterial Blood Gas: venous blood gas; Complete Time: 02:26 09/07 03:01 Order name: Glucose, Ancillary Testing; Complete Time: 03:04 EDMS 09/07 03:09 Order name: Urine Dipstick-Ancillary; Complete Time: 03:10 EDMS 09/07 03:11 Order name: Urine Microscopic Only; Complete Time: 03:48 09/07 03:11 Order name: Urine Culture [facility] 09/07 00:34 Order name: Accucheck Blood Glucose; Complete Time: 00:38 09/07 00:36 Order name: XRAY Chest (1 view) [facility] 09/07 00:36 Order name: EKG; Complete Time: 00:37 09/07 00:36 Order name: Cardiac monitoring; Complete Time: 01:20 09/07 00:36 Order name: EKG - Nurse/Tech; Complete Time: 01:20 09/07 00:36 Order name: IV Saline Lock; Complete Time: 00:45 09/07 00:36 Order name: Labs collected and sent; Complete Time: 02:02 09/07 00:36 Order name: O2 Per Protocol; Complete Time: 00:47 09/07 00:36 Order name: CT Head Brain wo Cont 7 09/07 04:29 Order name: Glucose, Ancillary Testing; Complete Time: 04:32 EDMS 09/07 00:36 Order name: O2 Sat Monitoring; Complete Time: 00:47 7 09/07 00:36 Order name: Urine Dipstick-Ancillary (obtain specimen); Complete Time: 03:39 [facility] Administered Medications: 01:28 Drug: Phenergan (promethazine) 12.5 mg Route: IVP; Site: left forearm; 5 04:32 Follow up: Response: Nausea is decreased [facility] 01:28 Drug: NS 0.9% 1000 ml Route: IV; Rate: 1000 ml; Site: left forearm; 5 02:32 Follow up: IV Status: Completed infusion; IV Intake: 1000ml 5 03:00 CANCELLED (Physician Discretion): Insulin Regular Human 10 units IVP once 5 03:03 Drug: NS 0.9% 1000 ml Route: IV; Rate: 1000 ml; Site: left forearm; 5 04:15 Follow up: IV Status: Completed infusion; IV Intake: 1000ml 5 03:03 Drug: Insulin Regular Human 5 units {Co-Signature: ll3 (Yahaira Flower RN).} Route: IVP; 5 Site: left forearm; 04:24 Follow up: Response: Blood sugar is lowered [facility] 03:33 Drug: Rocephin (cefTRIAXone) 1 grams Route: IV; Rate: per protocol; Site: left forearm; 5 03:52 Follow up: IV Status: Completed infusion; IV Intake: 50ml 5 Point of Care Testing: Blood Glucose: 00:39 Blood Glucose: High (>450 mg/dL); ll3 Ranges: Critical Glucose Levels:Adult <50 mg/dl or >400 mg/dl <40 mg/dl or >180 mg/dl Disposition Summary: 09/07/21 04:21 Discharge Ordered Location: Home [facility] Problem: an ongoing problem [facility] Symptoms: have improved [facility] Condition: Stable [facility] Diagnosis - Dizziness and giddiness mh7 - Type 2 diabetes mellitus with hyperglycemia mh7 - UTI/ Urinary tract infection, site not specified [facility] Followup: [facility] - With: Private Physician - When: 1 - 2 days - Reason: Worsening of condition, Recheck today's complaints, Continuance of care, Re-evaluation by your physician Discharge Instructions: - Discharge Summary Sheet [facility] - Hyperglycemia [facility] - Urinary Tract Infection, Adult, [id number] [facility] - Dizziness, [id number] [facility] Forms: - Medication Reconciliation Form [facility] - Thank You Letter [facility] - Antibiotic Education [facility] - Prescription Opioid Use [facility] Prescriptions: - ondansetron 4 mg Oral tablet,disintegrating - place 1 tablet by TRANSLINGUAL route every 8 hours As needed; 10 tablet; mh7 Refills: 0, Product Selection Permitted - Cipro 500 mg Oral Tablet - take 1 tablet by ORAL route every 12 hours for 7 days; 14 tablet; Refills: 0, mh7 Product Selection Permitted Signatures: Dispatcher [employer] EDMS Burton Jones, ELECTRICAL FITTER-C ELECTRICAL FITTER-Cla1 Sánchez Nice MD MD 7 Yahaira Flower RN RN ll3 Marietta Son RN RN 5 Yahaira Flower RN ll3 Corrections: (The following items were deleted from the chart) 03:00 02:44 Insulin Regular Human 10 units IVP once ordered. [facility]5
[2021-09-07 13:46] VITALS: TEMP 98
[2021-09-07 13:49] VITALS: BP 134/75; O2SAT 100
--- NOTE | 2021-09-07 14:59 | RAD REPORT ---
EXAM DESCRIPTION: RAD - Chest Single View - 09/07/2021 12:51 am CLINICAL HISTORY: 11 years Female, Dizziness COMPARISON: Chest radiograph 12/24/2019 FINDINGS/IMPRESSION: No focal lung consolidation. No pleural effusion. No pneumothorax. Unchanged prior median sternotomy. Cardiomediastinal silhouette is unchanged. No acute osseous abnormality. Electronically signed by: Jonathon Ortiz DO 09/07/2021 1:06 AM CDT Due to temporary technical issues with the PACS/Fluency reporting system, reports are being signed by the in house radiologists without review as a courtesy to insure prompt reporting. The interpreting radiologist is fully responsible for the content of the report.
--- NOTE | 2021-09-07 15:00 | RAD REPORT ---
EXAM DESCRIPTION: CT - Head Brain Wo Cont - 09/07/2021 7:03 am CLINICAL HISTORY: 51 years, Female, DIZZINESS COMPARISON: 07/25/2021. FINDINGS: Multiple transaxial tomograms of the brain were obtained from the base of the skull to the vertex without contrast. 2-D multiplanar reformats and the coronal and sagittal plane were performed and reviewed. This exam was performed according to our departmental dose-optimization protocol, which includes auto mated exposure control, adjustment of the mA and/or kV according to patient size and/or use of iterat mayito reconstruction technique. Brain parenchyma as well as the burgess and white matter differentiation demonstrate to be unremarkable. There is no midline shift and/or mass effect. There is no evidence for acute hemorrhage. No focal ar eas of hypodensities. Lateral ventricles and cisterns displace normal appearance. No intra or ext ra axial fluid collections were seen. The calvarium is intact with no evidence for fracture. The visu alized portions of the paranasal sinuses and orbits demonstrate to be clear. IMPRESSION: NO ACUTE INTRACRANIAL HEMORRHAGE. UNREMARKABLE CT SCAN OF THE HEAD WITHOUT CONTRAST. Electronically signed by: Juanjose Rodriguez MD 09/07/2021 1:10 AM CDT Due to temporary technical issues with the PACS/Fluency reporting system, reports are being signed by the in house radiologists without review as a courtesy to insure prompt reporting. The interpreting radiologist is fully responsible for the content of the report.
--- NOTE | 2021-09-08 11:02 | EKG ---
Test Date: 2021-09-07 Test Time: 01:20:52 Director Trust: DALILA MEASUREMENT RESULTS: Intervals: Rate: 88 NC: 150 QRSD: 80 QT: 376 QTc: 454 [place]: P: 55 NC: 150 QRS: -15 T: 32 INTERPRETIVE STATEMENTS: Normal sinus rhythm Possible Left atrial enlargement Left ventricular hypertrophy Cannot rule out Inferior infarct, age undetermined Anterior infarct, age undetermined Abnormal ECG Compared to ECG 07/04/2021 19:25:28 No significant changes Electronically Signed On 09-08-21 10:57:39 CDT by Griffin Mejia
== END 2021-09-07 04:32 | disposition home or self-care (01) ==
LOC: ER 00:07
DX: E11.65 Type 2 diabetes mellitus with hyperglycemia (principal); N39.0 Urinary tract infection, site not specified; I10 Essential (primary) hypertension; Z72.0 Tobacco use; Z95.1 Presence of aortocoronary bypass graft; Z88.5 Allergy status to narcotic agent; Z89.611 Acquired absence of right leg above knee; Z91.048 Other nonmedicinal substance allergy status; Z86.73 Personal history of transient ischemic attack (TIA), and cerebral infarction without residual deficits
CPT/HCPCS: 96365; 96361; 93005; 87088; 85025; 87086; 80048; 36415; 82010; 83735; 85610; 82947 ×3; 80076; 84484; 83880; 70450; 71045; 82805; 96375; 99284; J2550; J1815; J7030 ×2; 81003; 81015; 87077; 87186

== ENCOUNTER 2021-09-14 20:51 | Emergency (ER) | payer OTHER ==
--- OUTSIDE RECORDS SUMMARY | 2021-09-14 20:55 | XMS REPORT | Continuity of Care Document ---
:1970 Author Organization [facility] t Address [address] [place] [address] Care Team Providers Name Role Phone Lucas BROWN, A Primary Care Physician BANG Attending Clinician Unavailable Michael VILLEGAS Attending Clinician Unavailable Doctor Unassigned, Name Attending Clinician Unavailable Lucas BROWN, A Attending Clinician Payers Payer Name Policy Type Policy Number Effective Date [facility]piration Date [facility]IC[facility] PART A [id number] 2017 \T\ B 00:00:00 Problems Condition Condition Condition Status Onset Resolution Last Treating Co mments Source Name Details Category Date Date Treatment Clinician Date UTI UTI Disease Active Univers (urinary (urinary 8-20 ity of tract tract 00:00: [place] infection) infection) 00 Me dical Branch Dizziness Dizziness Disease Active Uni vers 8-20 ity of 00:00: [place] 00 Medical Branch Weakness Weakness Disease Active Unive rs 8-20 ity of 00:00: [place] 00 Medical Branch CAD in CAD in Disease Active Univers [place] 7-05 ity of artery artery 00:00: 00 Medical Branch Hypoglycem Hypoglycem Disease Active U nivers ia ia 6-11 ity of 00:00: [place] 00 Medical Branch 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 5-06 it y of on on 00:00: [place] 00 Medical Branch Poor Poor Disease Active [...] involving involving 00 Medi [place] Branch coronary coronary artery of artery of [place] heart heart without without angina angina pectoris [...] Added automatic ally from request for surgery [id number] High High Disease Active Univers cholestero cholestero it y of l l [facility] HTN HTN Disease Active Univers (hypertens (hypertens it y of ion) ion) [facility] GERD GERD Disease Active Univers (gastroeso (gastroeso it y of phageal phageal [place] reflux reflux Medical disease) disease) Branch DM DM Disease Active Univers (diabetes (diabetes ity of mellitus) mellitus) [facility] Depression Depression Disease Active U nivers ity of [facility] CVA CVA Disease Active Univers (cerebral (cerebral ity of vascular vascular [place] accident) accident) [facility] CHF CHF Disease Active Univers (congestiv (congestiv it y of e heart e heart [place] failure) failure) [facility] [place] Anxiety Anxiety Disease Active Univers ity of [facility] Angina Angina Disease Active Univers pectoris pectoris ity [facility] H/O right H/O right Disease [...] of on, benign [place], benign [place] [facility] Branch Hx of CABG Hx of CABG Disease Active U nivers ity [facility] Migraines Migraines Disease Active Uni vers ity [facility] Seizures Seizures Disease Active Unive rs ity [facility] Unilateral Unilateral Disease Active U nivers AKA, right AKA, right it y of [facility] History of History of Problem [...] [facility] Chronic Chronic Problem Active [facility] pain pain [facility] disorder disorder [facility] shelter shelter Problem Active [facility] current current [facility] - use of use of [facility] insulin insulin l [facility] Neuropathy Neuropathy Problem [facility] Depression Depression Problem Active [facility] with with [facility] anxiety anxiety [facility] HTN HTN Problem Active [facility] (hypertens (hypertens Charley kes - ion), ion), Memoria benign benign l [facility] Seizures Seizures Problem Active [facility] Coronary Coronary Problem Active [facility] t artery artery [facility] - disease disease Memoria involving involving l coronary coronary Outpat i bypass bypass ent graft of graft of Clinic s [place] heart with heart with angina angina pectoris pectoris Dependent Dependent Problem Active [facility] on on [facility] - wheelchair wheelchair Me [facility] Clinics History of History of Problem Active C [facility] right right [facility] - above knee above knee [facility] amputation amputation l [facility] Allergies, Adverse Reactions, Alerts [...] [facility] Reaction Available [facility] tramadol Adverse Active Info Not [facility] t Reaction Available [facility] Social History Social Habit Start Date Stop Date Quantity Comments Source History of tobacco Cigarette Smoker University of use [facility] Exposure to Not sure University of SARS-CoV-2 (event) [facility] Alcohol intake 2021-06-21 2021-06-21 Ex-drinker [facility] 00:00:00 00:00:00 (finding) [facility] Education 2021-01-15 2021-01-15 12 University of 00:00:00 00:00:00 [facility] Branch History SDOH 2020-05-08 2020-05-08 99 University o f Alcohol Frequency 00:00:00 [facility] SDOH 2020-05-08 2020-05-08 99 University o f Alcohol Std Drinks 00:00:00 00:00:00 [place] Medical Branch History SDCO 2020-05-08 2020-05-08 99 [place] o f Alcohol Binge 00:00:00 00:00:00 [facility] Branch Tobacco Comment 2020-04-03 2020-04-03 smoking since 12 Uni versity of 00:00:00 00:00:[address] [facility] Alcohol Comment 2019-10-11 2019-10-11 rare Universit y of 00:00:00 00:00:00 [facility] Cigarettes smoked 2018-02-21 2018-02-21 Univers ity of current (pack per 00:00:00 00:00:00 ) - Reported Branch Tobacco use and 2018-02-21 2018-02-21 Never used Universit y of exposure 00:00:00 00:00:00 [facility] Sex [birth year] At [birth year] Universit y of 00:00:00 00:00:00 [facility] Smoking Status Start Date Stop Date Source Current every day smoker 2018-02-21 00:00:[address] [facility] Medications Ordered Filled Start Stop Current Ordering Indication Dosage Frequency Signature Comments Components Source Medication Medication Date Date Medication? Clinician (SIG) Name Name GABAPENTIN Yes [id number] TAKE 1 Univers 800 mg 2-25 TABLET BY ity of tablet 00:00: MOUTH [place] [address] THREE Medical TIMES Branch DAILY MIRTAZAPINE 2020-05 Yes [id number] 15mg TAKE 1 Univers 15 mg 2-20 TABLET BY ity of tablet 00:00: MOUTH AT [place] [address] BEDTIME [facility] MIRTAZAPINE 2020-05 Yes [id number] 15mg TAKE 1 Univers 15 mg 2-20 TABLET BY ity of tablet 00:00: MOUTH AT [place] 00 BEDTIME Medical Branch MIRTAZAPINE 2020-1 Yes [id number] 15mg TAKE 1 Univers 15 mg 2-20 TABLET BY ity of tablet 00:00: MOUTH AT [place] BEDTIME Medical Branch MIRTAZAPINE 2020-1 Yes [id number] 15mg TAKE 1 Univers 15 mg 2-20 TABLET BY ity of tablet 00:00: MOUTH AT [place] BEDTIME Medical Branch gabapentin 2020-0 Yes [id number] 800mg Take 1 Univers 800 mg 8-20 tablet by ity of tablet 00:00: mouth 3 (three) Medical times Branch daily. gabapentin 2020-0 Yes [id number] 800mg Take 1 Univers 800 mg 8-20 tablet by ity of tablet 00:00: mouth 3 (three) Medical times Branch daily. gabapentin 2020-0 Yes [id number] 800mg Take 1 Univers 800 mg 8-20 tablet by ity of tablet 00:00: mouth 3 (three) Medical times Branch daily. ondansetron 2020-0 Yes [id number] 4mg Take 1 Univers 4 mg 8-06 tablet by ity of disintegrat 00:00: mouth [place] ing tablet 00 every 8 Medica l (eight) Branch hours as needed for Nausea and Vomiting (N/V). ondansetron 2020-0 Yes [id number] 4mg Take 1 Univers 4 mg 8-06 tablet by ity of disintegrat 00:00: mouth [place] ing tablet 00 every 8 Medica l (eight) Branch hours as needed for Nausea and Vomiting (N/V). ondansetron 2020-0 Yes [id number] 4mg Take 1 Univers 4 mg 8-06 tablet by ity of disintegrat 00:00: mouth [place] ing tablet 00 every 8 Medica l (eight) Branch hours as needed for Nausea and Vomiting (N/V). ondansetron 2020-0 Yes [id number] 4mg Take 1 Univers 4 mg 8-06 tablet by ity of disintegrat 00:00: mouth [place] ing tablet 00 every 8 Medica l (eight) Branch hours as needed for Nausea and Vomiting (N/V). aspirin 81 2020-0 Yes [id number] 81mg Take 1 U nivers mg chewable 7-07 tablet by ity of tablet 00:00: mouth [place] 00 daily. Medical Branch clopidogreL 1-0 Yes [id number] 75mg Take 1 Univers 75 mg 7-07 tablet by ity of tablet 00:00: mouth [place] 00 daily. Medical Branch aspirin 81 1-0 Yes [id number] 81mg Take 1 U nivers mg chewable 7-07 tablet by ity of tablet 00:00: mouth [place] 00 daily. Medical Branch clopidogreL 2021-0 Yes [id number] 75mg Take 1 Univers 75 mg 7-07 tablet by ity of tablet 00:00: mouth [place] 00 daily. Medical Branch aspirin 81 1-0 Yes [id number] 81mg Take 1 U nivers mg chewable 7-07 tablet by ity of tablet 00:00: mouth [place] 00 daily. Medical Branch clopidogreL 2021-0 Yes [id number] 75mg Take 1 Univers 75 mg 7-07 tablet by ity of tablet 00:00: mouth [place] 00 daily. Medical Branch aspirin 81 1-0 Yes [id number] 81mg Take 1 U nivers mg chewable 7-07 tablet by ity of tablet 00:00: mouth [place] 00 daily. Medical Branch clopidogreL 1-0 Yes [id number] 75mg Take 1 Univers 75 mg 7-07 tablet by ity of tablet 00:00: mouth [place] 00 daily. Medical Branch ezetimibe 1-0 Yes [id number] 10mg Take 1 U nivers 10 mg 6-18 tablet by ity of tablet 00:00: mouth [place] 00 daily. Medical Branch furosemide 1-0 Yes [id number] 1 tablet Univers 20 mg 6-18 02 as needed ity of tablet 00:00: for leg [place] 00 swelling Medical Branch ezetimibe 1-0 Yes [id number] 10mg Take 1 U nivers 10 mg 6-18 tablet by ity of tablet 00:00: mouth [place] 00 daily. Medical Branch furosemide 2021-0 Yes [id number] 1 tablet Univers 20 mg 6-18 02 as needed ity of tablet 00:00: for leg [place] 00 swelling Medical Branch ezetimibe 2021-0 Yes [id number] 10mg Take 1 U nivers 10 mg 6-18 tablet by ity of tablet 00:00: mouth [place] 00 daily. Medical Branch furosemide 2021-0 Yes [id number] 1 tablet Univers 20 mg 6-18 02 as needed ity of tablet 00:00: for leg [place] 00 swelling Medical Branch ezetimibe Yes [id number] 10mg Take 1 U nivers 10 mg 6-18 tablet by ity of tablet 00:00: mouth 00 daily. Medical Branch furosemide Yes [id number] 1 tablet Univers 20 mg 6-18 02 as needed ity of tablet 00:00: for leg 00 swelling Medical Branch insulin NPH Yes [id number] 40U inject Univers and regular 5-12 40-50 ity of human 70-30 00:00: Units [place] (NOVOLIN 00 under the Medica l 70/30 U-100 skin 2 Branch INSULIN) (two) 100 unit/mL times (70-30) daily injection before breakfast and dinner. insulin NPH Yes [id number] 40U inject Univers and regular 5-12 40-50 ity of human 70-30 00:00: Units [place] (NOVOLIN 00 under the Medica l 70/30 U-100 skin 2 Branch INSULIN) (two) 100 unit/mL times (70-30) daily injection before breakfast and dinner. insulin NPH Yes [id number] 40U inject Univers and regular 5-12 40-50 ity of human 70-30 00:00: Units [place] (NOVOLIN 00 under the Medica l 70/30 U-100 skin 2 Branch INSULIN) (two) 100 unit/mL times (70-30) daily injection before breakfast and dinner. insulin NPH Yes [id number] 40U inject Univers and regular 5-12 40-50 ity of human 70-30 00:00: Units [place] (NOVOLIN 00 under the Medica l 70/30 U-100 skin 2 Branch INSULIN) (two) 100 unit/mL times (70-30) daily injection before breakfast and dinner. atorvastati Yes [id number] 80mg Take 1 Univers n 80 mg 5-06 tablet by ity of tablet 00:00: mouth at [place] 00 bedtime. Medical Branch atorvastati Yes [id number] 80mg Take 1 Univers n 80 mg 5-06 tablet by ity of tablet 00:00: mouth at [place] 00 bedtime. [facility] Branch atorvastati Yes [id number] 80mg Take 1 Univers n 80 mg 5-06 tablet by ity of tablet 00:00: mouth at [place] 00 bedtime. Medical Branch atorvastati Yes [id number] 80mg Take 1 Univers n 80 mg [...] 00 involving bedtime. Medica l [place] Branch coronary artery of [place] heart without angina pectoris glipiZIDE Yes Type [...] 00 involving bedtime. Medica l [place] Branch coronary artery of [place] heart without angina pectoris ezetimibe 2020- No [...] daily for Medi [place] tablet [place] 30 days. Branch coronary artery of [place] heart without angina pectoris SITagliptin 2020- No [...] daily for Medi [place] tablet [place] 30 days. Branch coronary artery of [place] heart without angina pectoris SITagliptin 2020- No [...] human 70-30 00:00: 00:00 diabetes under the [place] (NOVOLIN 00 :00 mellitus skin 2 Medic [...] human 70-30 00:00: 00:00 diabetes under the [place] (NOVOLIN 00 :00 mellitus skin 2 Medic [...] Medical DAILY WITH Branch MEALS pantoprazol Yes [id number] 40mg Take 1 Univers e 40 mg EC 1-11 tablet by ity of tablet 00:00: mouth [place] 00 daily. Medical Branch pantoprazol Yes [id number] 40mg Take 1 Univers e 40 mg EC 1-11 tablet by ity of tablet 00:00: mouth [place] 00 daily. Medical Branch pantoprazol Yes [id number] 40mg Take 1 Univers e 40 mg EC 1-11 tablet by ity of tablet 00:00: mouth [place] 00 daily. Medical Branch pantoprazol Yes [id number] 40mg Take 1 Univers e 40 mg [...] :00 involving bedtime. Medica l [place] Branch coronary artery of [place] heart without angina pectoris atorvastati 2020- No Coronary 80mg Take 1 Univers n 80 mg 3-20 -06 artery tablet by ity of tablet 00:00: 00:00 disease mouth at [place] 00 :00 involving bedtime. Medica l [place] Branch coronary artery of [place] heart without angina pectoris nitroglycer 2018-05 Yes [id number] 1 tab SL Univers in 0.4 mg 0-29 q5min up ity of sublingual 00:00: to 3 doses [place] tablet 00 PRN chest Medical pain, then Branch activate 911. nitroglycer 2018-05 Yes [id number] 1 tab SL Univers in 0.4 mg 0-29 q5min up ity of sublingual 00:00: to 3 doses [place] tablet 00 PRN chest Medical pain, then Branch activate 911. nitroglycer 2018-05 Yes [id number] 1 tab SL Univers in 0.4 mg 0-29 q5min up ity of sublingual 00:00: to 3 doses [place] tablet 00 PRN chest Medical pain, then Branch activate 911. nitroglycer 2018-05 Yes [id number] 1 tab SL Univers in 0.4 mg [...] [facility] [place]ada [address] [facility] [...] Bisulfate [facility] Furosemide Furosemide Yes Dada [address] [facility] Immunizations Ordered Filled Immunization Date Status Comments Sourc e Immunization Name Name SARS-COV-2 COVID-19 2021-01-17 Completed Unive rsity of PFIZER VACCINE 00:00:00 [facility] SARS-COV-2 COVID-19 2021-01-17 Completed Unive rsity of PFIZER VACCINE 00:00:00 [facility] SARS-COV-2 COVID-19 2021-01-17 Completed Unive rsity of PFIZER VACCINE 00:00:00 [facility] SARS-COV-2 COVID-19 2021-01-17 Completed Unive rsity of PFIZER VACCINE 00:00:00 [facility] Vital Signs Vital Name Observation Time Observation Value Comments Source Systolic blood 2021-06-21 22:04:00 136 mm[Hg] Univer sit of [place] pressure [facility] Diastolic blood 2021-06-21 22:04:00 81 mm[Hg] Unive rsity of [facility] [place] [facility] Heart rate 2021-06-21 22:04:00 96 /min General acute hospital Oxygen saturation 2021-06-21 22:03:00 99 /[facility] Br anch by Pulse oximetry Heart rate 2020-10-01 20:20:00 60 /min General acute hospital Systolic blood 2020-10-01 20:20:00 120 mm[Hg] Univer sity of [place] pressure [facility] Diastolic blood 2020-10-01 20:20:00 80 mm[Hg] Unive rsity of [facility] [place] [facility] Heart rate 2020-10-01 20:20:00 60 /min General acute hospital Systolic blood 2020-10-01 20:20:00 120 mm[Hg] Univer sity of [place] pressure Medical Branch Diastolic blood 2020-10-01 20:20:00 80 mm[Hg] Unive rsity of [facility] [place] [facility] Procedures Procedure Date / Time Performed Performing Clinician Sour e EXTERNAL PROVIDER 2021-08-09 05:01:00 Doctor Unassigned, No Univ ersity [facility] RECORDS Name Medical Branch EXTERNAL PROVIDER 2021-07-19 06:01:00 Doctor Unassigned, No [facility] Name Medical Branch POCT GLUCOSE 2021-06-21 22:47:00 Dev Zavala [facility] [place] (AUTOMATED) Medical Branch POCT GLUCOSE(AGE 2021-06-21 00:00:00 Dev Zavala Univers ity of [place] >30DAYS) Medical Branch Plan of Care Planned Activity Planned Date Details Comments Source Future Scheduled 2022 Screening for University [facility] Test 00:00:00 malignant neoplasm of Medica l Branch colon (procedure) [code = 669373555] Future Scheduled 2022 Screening for University [facility] Test 00:00:00 malignant neoplasm of Medica l Branch colon (procedure) [code = 472973245] Future Scheduled 2021-09-07 Creatinine [facility] [place] Test 00:00:00 measurement Medical Branch (procedure) [code = 49712826] Future Scheduled 2021-09-07 Creatinine [facility] [place] Test 00:00:00 measurement Medical Branch (procedure) [code = 16603358] Future Scheduled 2021-09-05 Calculated low Universit y [facility] [place] Test 00:00:00 density lipoprotein Medical Branch cholesterol level (procedure) [code = 126696955] Future Scheduled 2021-09-05 Calculated low Universit y of [place] Test 00:00:00 density lipoprotein Medical Branch cholesterol level (procedure) [code = 100927486] Future Scheduled 2021-05-08 Depression screening Uni versity of [place] Test 00:00:00 (procedure) [code = Medical Branch [id number]] Future Scheduled 2021-05-08 Depression screening Uni versity of [place] Test 00:00:00 (procedure) [code = Medical Branch 889592416] Future Scheduled 2021-03-07 Hemoglobin A1c Universit y [facility] [place] Test 00:00:00 measurement Medical Branch (procedure) [code = 45499569] Future Scheduled 2021-03-07 Hemoglobin A1c Universit y [facility] [place] Test 00:00:00 measurement Medical Branch (procedure) [code = 46259131] Future Scheduled 2021-01-27 INFLUENZA VACCINE Univer [facility] Test 00:00:00 (Season Ended) [code Medical Branch = INFLUENZA VACCINE (Season Ended)] Future Scheduled 2021-01-27 INFLUENZA VACCINE Univer [facility] Test 00:00:00 (Season Ended) [code Medical Branch = INFLUENZA VACCINE (Season Ended)] Future Scheduled 2020-10-31 Screening for [facility] Test 00:00:00 malignant neoplasm of Medica l Branch breast (procedure) [code = 618376729] Future Scheduled 2020-10-31 Screening for [facility] Test 00:00:00 malignant neoplasm of Medica l Branch breast (procedure) [code = 674508120] Future Scheduled 2020-09-25 Screening for [facility] Test 00:00:00 malignant neoplasm of Medica l Branch cervix (procedure) [code = 681666709] Future Scheduled 2020-09-25 Screening for [facility] Test 00:00:00 malignant neoplasm of Medica l Branch cervix (procedure) [code = 515205722] Future Scheduled 2020-05-10 Diabetic foot [facility] Test 00:00:00 examination Medical Branch (regime/therapy) [code = 291352261] Future Scheduled 2020-05-10 Diabetic foot [facility] Test 00:00:00 examination Medical Branch (regime/therapy) [code = 014116291] Future Scheduled 2019-09-01 Microalbumin [facility] Test 00:00:00 measurement, urine, Medical Branch quantitative (procedure) [code = 454820871] Future Scheduled 2019-09-01 Microalbumin [facility] Test 00:00:00 measurement, urine, Medical Branch quantitative (procedure) [code = 196888653] Future Scheduled 1991 DTaP,Tdap,and Td Univers ity [facility] Test 00:00:00 Vaccines (1 - Tdap) Medical Branch [code = DTaP,Tdap,and Td Vaccines (1 - Tdap)] Future Scheduled 1991 DTaP,Tdap,and Td Univers ity [facility] Test 00:00:00 Vaccines (1 - Tdap) Medical Branch [code = DTaP,Tdap,and Td Vaccines (1 - Tdap)] Future Scheduled 1990 Hepatitis C screening Un iversity [facility] Test 00:00:00 (procedure) [code = Medical Branch [id number]] Future Scheduled 1990 Hepatitis C screening Un iversity [facility] Test 00:00:00 (procedure) [code = Medical Branch [id number]] Future Scheduled 1988 SARS-CoV-2 (COVID-19) Un iversity of [place] Test 00:00:00 Vaccine (1) [code = Medical Branch SARS-CoV-2 (COVID-19) Vaccine (1)] Future Scheduled 1988 SARS-CoV-2 (COVID-19) Un iversity of [place] Test 00:00:00 Vaccine (1) [code = Medical Branch SARS-CoV-2 (COVID-19) Vaccine (1)] Future Scheduled 1982 Examination of retina Un iversity of [place] Test 00:00:00 (procedure) [code = Medical Branch 716936043] Future Scheduled 1982 Examination of retina Un iversity of [place] Test 00:00:00 (procedure) [code = Medical Branch 022507502] Future Scheduled 1978 PNEUMOCOCCAL 0-64 Univer [facility]ity of [place] Test 00:00:00 YEARS COMBINED SERIES Medica l Branch (1 of 1 - PPSV23) [code = PNEUMOCOCCAL 0-64 YEARS COMBINED SERIES (1 of 1 - PPSV23)] Future Scheduled 1978 PNEUMOCOCCAL 0-64 Univer sity of [place] Test 00:00:00 YEARS COMBINED SERIES Medica l Branch (1 of 1 - PPSV23) [code = PNEUMOCOCCAL 0-64 YEARS COMBINED SERIES (1 of 1 - PPSV23)] Encounters Start End Encounter Admission Attending Care Care Encounter Source Date/Time Date/Time Type Type Clinicians Facility Department ID 2021-10-15 2021-10-15 Outpatient Sonya CUENCA [facility] [id number] Univers 09:00:00 09:00:00 ALDA [id number] yue [facility] 2021-10-15 2021-10-15 Outpatient R BANG [facility] [id number] Univers 09:00:00 09:00:00 ALDA turner [facility] 2021-08-27 2021-08-27 Outpatient R BAKARI [facility] [id number] Univers 16:00:00 17:02:[address] [facility] 2021-08-09 2021-08-09 Irene TOM [id number] Univers 00:00:00 00:00:00 Only Unassigned, ARTURO [id number] ity of [place] [facility] [id number] [place] [phone] [address] 2021-07-19 2021-07-19 Orders Doctor VAISHALI [id number] Univers 00:00:00 00:00:00 Only Unassigned, ARTURO [id number] ity of [place] [facility] [id number] [place] [phone] [address] 2021-07-05 2021-07-05 Telephone [facility] [id number] Univers 00:00:00 00:00:00 Wondiful A HEALTH [id number] ity of [place] [id number] [place] as DILLAN?BLEA [phone] [address] OFFICE BUILDING 2021-06-21 2021-06-21 Office [facility] [id number] [facility] 16:00:00 16:54:48 Visit Wondiful A HEALTH [id number] ity of [place] [id number] [place] DILLAN?BLEA [phone] [address] OFFICE BUILDING 2020-10-01 2020-10-01 Office [facility] [id number] 15:08:27 16:09:31 Visit Wondiful A Health [id number] [place] [id number] Professio [phone] [place] [address] Office [facility] 2018-06-27 2018-06-27 [facility] [id number] 11:57:00 11:57:[address] [employer] [facility] Medicine Outpati ent Clinics 2018-06-15 2018-06-15 [facility] [id number] 16:24:00 16:24:[address] [facility] Medicine Outpati ent [facility] 2018-06-13 2018-06-13 [facility] [id number] 13:30:00 13:30:00 t [employer] [facility] Outpati ent Clinics 2017-12-12 2017-12-12 [facility] [id number] 13:22:00 13:22:00 t [employer] [facility] Outpati ent Clinics 2017-11-20 2017-11-20 [facility] [id number] 10:30:00 10:30:00 [employer] [facility] Outpati ent Clinics 2017-11-02 2017-11-02 [facility] [id number] 15:15:00 15:15:[address] [facility] ent Clinics Results Test Description Test Time Test Comments Results Result Comments Source POCT GLUCOSE (AUTOMATED) 2021-06-21 22:49:56 Test Item Value Reference Range Interpretation Comme nts POCT GLU (test code = 8416575595) 384 mg/dL 70-110 H Lab Interpretation (test code = 41569-5) [facility]normal [facility] >30DAYS[facility]2021-06-21 22:30:00 Test Item Value Reference Range Interpretation Comments POCT Glu (age>30days) (test code = 384 mg/dL 70-110 A 3342) Lab Interpretation (test code = Abnormal 18964-4) [facility]
[2021-09-14 23:06] LABS: Urine Blood Trace-lysed (Negative); Urine Glucose 2+ (Negative); Urine Protein 1+ (Negative); Urine pH 6.5 (5.0-7.0)
[2021-09-14 23:44] LABS: Urine Bacteria <20 /HPF (<20); Urine RBC <5 /HPF (NONE SEEN); Urine Urothelial Cells <5 /HPF (NONE SEEN)
[2021-09-15 00:01] LABS: Absolute Lymphocytes (CBC) 2.7 K/uL (0.7-4.9); Hematocrit 44.1 % (36.0-45.0); Lymphocytes % 29.8 % (15.3-44.8); MPV 8.8 fL (7.6-11.3); RBC Red Blood Cell Count 4.92 M/uL (3.86-4.86)
[2021-09-15 00:19] LABS: Albumin 2.9 g/dL (3.4-5.0); Bilirubin Total 0.4 mg/dL (0.2-1.0); Potassium 3.8 mmol/L (3.5-5.1); Protein, Total 7.1 g/dL (6.4-8.2)
[2021-09-15] MEDS ORDERED: FENTANYL CITR 100 MCG/2 ML ONE (00:25)
[2021-09-15] MEDS ORDERED: NA CHLORIDE 0.9% 1,000 ML ONE (00:42)
[2021-09-15] MEDS ORDERED: INSULIN -REGULAR HUMAN 50 UNIT/0.5 ML ML ONE (00:42)
--- NOTE | 2021-09-15 03:29 | ER ---
Nurse's Notes [facility] Name: Karen Shah Age: 51 yrs Sex: Female : 1970 Arrival Date: 09/14/2021 Time: 20:54 Bed 2 Private MD: Diagnosis: Low back pain;Type 2 diabetes mellitus with hyperglycemia Presentation: 09/14 21:42 Chief complaint: Patient states: "My back hurts, now I feel a little dizzy and I'm as6 nausea" pt denies injury to cause back pain. Coronavirus screen: At this time, the client does not indicate any symptoms associated with coronavirus-19. Ebola Screen: No symptoms or risks identified at this time. Initial Sepsis Screen: Does the patient meet any 2 criteria? No. Patient's initial sepsis screen is negative. Does the patient have a suspected source of infection? No. Patient's initial sepsis screen is negative. Risk Assessment: Do you want to hurt yourself or someone else? Patient reports no desire to harm self or others. Onset of symptoms was September 12, 2021. 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 - Social history:: Smoking status: Patient reports the use of cigarette tobacco products, smokes one-half pack cigarettes per day. Screenin:48 Abuse screen: Denies threats or abuse. Denies injuries from another. Nutritional as6 screening: No deficits noted. Tuberculosis screening: No symptoms or risk factors identified. Fall Risk None identified. Assessment: 21:50 General: Appears in no apparent distress. Behavior is calm, cooperative. Pain: as6 Complains of pain in back. Neuro: Level of Consciousness is awake, alert, obeys commands, Oriented to person, place, time, situation, Reports dizziness. Cardiovascular: Capillary refill < 3 seconds Patient's skin is warm and dry. Respiratory: Airway is patent Trachea midline Respiratory effort is even, unlabored, Respiratory pattern is regular, symmetrical. Musculoskeletal: Reports pain in back. 09/15 00:23 Reassessment: Patient appears in no apparent distress at this time. No changes from lg3 previously documented assessment. Patient and/or family updated on plan of care and expected duration. Pain level reassessed. Patient is alert, oriented x 3, equal unlabored respirations, skin warm/dry/pink. 01:37 Reassessment: Patient appears in no apparent distress at this time. Patient and/or lg3 family updated on plan of care and expected duration. Pain level reassessed. Patient is alert, oriented x 3, equal unlabored respirations, skin warm/dry/pink. Vital Signs: 09/14 21:42 BP 143 / 96; Pulse 83; Resp 18 S; Temp 96.9(O); Pulse Ox 100% on R/A; Weight 58.97 kg as6 (R); Height 5 ft. 4 in. (162.56 cm) (R); Pain 10/10; 22:15 BP 141 / 74; Pulse 81; Resp 18; Pulse Ox 100% on R/A; oe 23:30 BP 146 / 92; Pulse 85; Resp 18; Pulse Ox 100% on R/A; oe 09/15 00:34 BP 142 / 92; Pulse 78; Resp 18; Pulse Ox 100% on R/A; oe 02:11 BP 161 / 87; Pulse 86; Resp 18 S; Pulse Ox 99% on R/A; as6 09/14 21:42 Body Mass Index 22.31 (58.97 kg, 162.56 cm) as6 ED Course: 09/14 20:54 Patient arrived in ED. ja2 21:37 Aldo Crow, CHIDI is Primary Nurse. as6 21:43 Isidro Mcdaniel PA is PHCP. cp 21:43 Sánchez Nice MD is Attending Physician. cp 21:47 Triage completed. as6 21:48 Arm band placed on. as6 21:49 Placed in gown. Bed in low position. Call light in reach. Side rails up X2. Pulse ox as6 on. NIBP on. Warm blanket given. 22:51 Lipase Sent. as6 22:51 CMP Sent. as6 22:51 CBC with Diff Sent. as6 23:07 Urine Microscopic Only Sent. as6 23:44 CBC with Diff Sent. lg3 23:44 CMP Sent. lg3 23:45 Lipase Sent. lg3 23:45 Urine Microscopic Only Sent. lg3 09/15 00:13 Inserted saline lock: 24 gauge in right antecubital area, using aseptic technique. vc1 02:54 No provider procedures requiring assistance completed. IV discontinued, intact, as6 bleeding controlled, No redness/swelling at site. Pressure dressing applied. 03:30 Abdomen In Process Unspecified. EDMS Administered Medications: 00:23 Drug: fentaNYL (PF) 25 mcg Route: IVP; Site: right antecubital; lg3 00:23 Follow up: Response: No adverse reaction; Marked relief of symptoms; RASS: Alert and lg3 Calm (0) 00:54 Drug: NS 0.9% 1000 ml Route: IV; Rate: 1 bolus; Site: right antecubital; as6 02:54 Follow up: Response: No adverse reaction; IV Status: Completed infusion; IV Intake: as6 1000ml 00:55 Drug: Insulin Regular Human 10 units {Co-Signature: lg3 (Debbie Arroyo RN).} Route: IVP; as6 Site: right antecubital; 02:54 Follow up: Response: No adverse reaction as6 Point of Care Testing: Blood Glucose: 02:34 Blood Glucose: 196 mg/dL; as6 Ranges: Intake: 02:54 IV: 1000ml; Total: 1000ml. as6 Outcome: 02:46 Discharge ordered by . 7 02:54 Discharged to home via wheelchair, with significant other. as6 02:54 Condition: stable 02:54 Discharge instructions given to patient, Instructed on discharge instructions, follow up and referral plans. Demonstrated understanding of instructions, follow-up care. 02:54 Patient left the ED. as6 Signatures: Dispatcher [employer] EDMS Isidro Mcdaniel PA PA cp Espinosa, Orlando oe Gibson, Lacie, RN RN lg3 Sánchez Nice MD MD 7 Jill [place], RN RN as6 Nichole Huerta RN RN vc1 Debbie Arroyo RN lg3
--- NOTE | 2021-09-15 03:29 | EDPHYS ---
Physician Documentation [facility] Name: Karen Shah Age: 51 yrs Sex: Female : 1970 Arrival Date: 09/14/2021 Time: 20:54 Bed 2 Private MD: ED Physician Sánchez Nice HPI: 09/14 22:10 This 51 yrs old Female presents to ER via Wheelchair with complaints of Back cp Pain. 22:10 The patient presents with pain that is acute, with no known mechanism of injury. The cp symptoms are located in the coccyx area. Onset: The symptoms/episode began/occurred today. 22:10 Associated signs and symptoms: Pertinent positives: nausea, dizzy, Pertinent negatives: cp abdominal pain, chest pain, dysuria, fever, weakness. 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 - Social history:: Smoking status: Patient reports the use of cigarette tobacco products, smokes one-half pack cigarettes per day. ROS: 22:10 Back: Positive for pain at rest, pain with movement. cp 22:10 Constitutional: Negative for body aches, chills, fever, poor PO intake. cp 22:10 Respiratory: Negative for cough, shortness of breath, wheezing. 22:10 Abdomen/GI: Positive for nausea, Negative for abdominal pain, vomiting, diarrhea, constipation. 22:10 Cardiovascular: Negative for chest pain, palpitations. cp 22:10 : Negative for urinary symptoms. cp 22:10 Neuro: Positive for dizziness, Negative for altered mental status, weakness. 22:10 All other systems are negative. Exam: 22:15 Head/Face: Normocephalic, atraumatic. cp 22:15 Constitutional: The patient appears in no acute distress, alert, awake, non-diaphoretic, non-toxic, well developed, well nourished, uncomfortable. 22:15 Eyes: Periorbital structures: appear normal, Conjunctiva: normal, no exudate, no injection, Lids and lashes: appear normal, bilaterally. 22:15 ENT: External ear(s): are unremarkable, Nose: is normal, Mouth: Lips: moist, Oral mucosa: moist, Posterior pharynx: Airway: no evidence of obstruction, patent. 22:15 Chest/axilla: Inspection: normal, Palpation: is normal, no crepitus, no tenderness. 22:15 Cardiovascular: Rate: normal. 22:15 Respiratory: the patient does not display signs of respiratory distress, Respirations: cp normal, no use of accessory muscles, no retractions, labored breathing, is not present, Breath sounds: are clear throughout, no decreased breath sounds, no stridor, no wheezing. 22:15 Abdomen/GI: Inspection: abdomen appears normal, Palpation: abdomen is soft and non-tender, in all quadrants. 22:15 Back: pain, that is moderate, of the sacrum, ROM is painful, with all movement. 22:15 Skin: cellulitis, is not appreciated, no rash present. 22:15 Neuro: Orientation: to person, place \T\ time. Mentation: is normal, Motor: moves all fours, strength is normal. Vital Signs: 21:42 BP 143 / 96; Pulse 83; Resp 18 S; Temp 96.9(O); Pulse Ox 100% on R/A; Weight 58.97 kg as6 (R); Height 5 ft. 4 in. (162.56 cm) (R); Pain 10/10; 22:15 BP 141 / 74; Pulse 81; Resp 18; Pulse Ox 100% on R/A; oe 23:30 BP 146 / 92; Pulse 85; Resp 18; Pulse Ox 100% on R/A; oe 09/15 00:34 BP 142 / 92; Pulse 78; Resp 18; Pulse Ox 100% on R/A; oe 02:11 BP 161 / 87; Pulse 86; Resp 18 S; Pulse Ox 99% on R/A; as6 09/14 21:42 Body Mass Index 22.31 (58.97 kg, 162.56 cm) as6 MDM: 09/14 21:54 Patient medically screened. cp 09/15 02:44 Differential diagnosis: arthritis, chronic back pain, Fracture Osteoarthritis mh7 Ureterolithiasis. Data reviewed: vital signs, nurses notes, lab test result(s), CBC, electrolytes, urinalysis, radiologic studies, CT scan. Data interpreted: Pulse oximetry: on room air is 99 %. Interpretation: normal. Counseling: I had a detailed discussion with the patient and/or guardian regarding: the historical points, exam findings, and any diagnostic results supporting the discharge/admit diagnosis, the presence of at least one elevated blood pressure reading (>120/80) during this emergency department visit, lab results, radiology results, the need for outpatient follow up, to return to the emergency department if symptoms worsen or persist or if there are any questions or concerns that arise at home. Response to treatment: the patient's symptoms have resolved after treatment, the patient's blood pressure is in an acceptable range, mental status has returned to baseline, the patient no longer shows bradycardia, the patient is not short of breath, the patient is not tachycardic, the patient's pain is gone, the patient's temperature has normalized. 09/14 21:58 Order name: CBC with Diff; Complete Time: 00:32 09/15 00:32 Interpretation: Normal except: WBC 8.9; RBC 4.92; HGB 15.2. 09/14 21:58 Order name: CMP; Complete Time: 00:32 09/15 00:33 Interpretation: Normal except: NA 133; GLUC 420; GFR 71; AST 7; ALK 162; CA 8.4; ALB cp 2.9; GLOB 4.2; A/G 0.7. 09/14 21:58 Order name: Lipase; Complete Time: 00:32 cp 09/14 21:58 Order name: Urine Microscopic Only; Complete Time: 23:59 09/14 21:58 Order name: CT Abd/Pelvis - IV Contrast Only cp 09/14 23:07 Order name: Urine Dipstick-Ancillary; Complete Time: 23:30 EDMS 09/14 23:59 Interpretation: Normal except: UGLUC 2+; UKET Trace; UBLD Trace-lysed; UPROT 1+. 09/14 21:58 Order name: IV Saline Lock; Complete Time: 00:19 cp 09/14 21:58 Order name: Labs collected and sent; Complete Time: 22:51 cp 09/14 21:58 Order name: Urine Dipstick-Ancillary (obtain specimen); Complete Time: 23:07 cp 09/14 22:02 Order name: Abdomen EDMS 09/14 22:58 Order name: Labs - recollect needed: all labs needed; Complete Time: 23:44 mw2 Administered Medications: 00:23 Drug: fentaNYL (PF) 25 mcg Route: IVP; Site: right antecubital; lg3 00:23 Follow up: Response: No adverse reaction; Marked relief of symptoms; RASS: Alert and lg3 Calm (0) 00:54 Drug: NS 0.9% 1000 ml Route: IV; Rate: 1 bolus; Site: right antecubital; as6 02:54 Follow up: Response: No adverse reaction; IV Status: Completed infusion; IV Intake: as6 1000ml 00:55 Drug: Insulin Regular Human 10 units {Co-Signature: lg3 (Debbie Arroyo RN).} Route: IVP; as6 Site: right antecubital; 02:54 Follow up: Response: No adverse reaction as6 Point of Care Testing: Blood Glucose: 02:34 Blood Glucose: 196 mg/dL; as6 Ranges: Critical Glucose Levels:Adult <50 mg/dl or >400 mg/dl <40 mg/dl or >180 mg/dl Disposition: 07:16 Co-signature as Attending Physician, Sánchez Nice MD. [facility] Disposition Summary: 09/15/21 02:46 Discharge Ordered Location: Home 7 Problem: an acute exacerbation mh7 Symptoms: have improved mh7 Condition: Stable 7 Diagnosis - Low back pain mh7 - Type 2 diabetes mellitus with hyperglycemia 7 Followup: 7 - With: Private Physician - When: 1 - 2 days - Reason: Worsening of condition, Recheck today's complaints, Continuance of care, Re-evaluation by your physician Discharge Instructions: - Discharge Summary Sheet 7 - Chronic Back Pain mh7 - Hyperglycemia [facility] Forms: - Medication Reconciliation Form 7 - Thank You Letter 7 - Antibiotic Education 7 - Prescription Opioid Use [facility] Signatures: Dispatcher [employer] EDFL Isidro Mcdaniel PA PA cp Saman Webber mw2 Debbie Arroyo RN RN Sánchez Nunes MD MD 7 Aldo Crow RN RN as6 Onelia Barboza PA PA sb3 Debbie Arroyo RN lg3
[2021-09-15 11:25] VITALS: TEMP 96.9
[2021-09-15 11:31] VITALS: BP 161/87; O2SAT 99
--- NOTE | 2021-09-15 11:54 | RAD REPORT ---
EXAM DESCRIPTION: CT - Abdomen Pelvis W Contrast - 09/15/2021 6:46 am CLINICAL HISTORY: The patient is 51 years old and is Female; coccyx pain TECHNIQUE: Axial computed tomography images of the abdomen and pelvis with intravenous contrast. S agittal and coronal reformatted images were created and reviewed. This CT exam was performed using one or more of the following dose reduction techniques: automated exposure control, adjustment of t he mA and/or kV according to patient size, and/or use of iterative reconstruction technique. COMPARISON: CT stone protocol November 07, 2018 FINDINGS: Lung bases: Unremarkable. No mass. No consolidation. ABDOMEN: Liver: 12 mm low-density lesion in the dome of the liver which is nonspecific but may represent a cyst or small hemangioma. Gallbladder and bile ducts: Unremarkable. No calcified stones. No ductal dilation. Pancreas: Unremarkable. No mass. No ductal dilation. Spleen: Unremarkable. No splenomegaly. Adrenals: Unremarkable. No mass. Kidneys and ureters: Unremarkable. No solid mass. No hydronephrosis. Stomach and bowel: Unremarkable. No obstruction. No mucosal thickening. PELVIS: Appendix: No findings to suggest acute appendicitis. Bladder: Unremarkable. No mass. Reproductive: 2.9 cm left ovarian/adnexal cyst. ABDOMEN and PELVIS: Intraperitoneal space: Unremarkable. No free air. No significant fluid collection. Bones/joints: Median sternotomy wires. Coccyx appears unchanged from the prior exam without evidence of acute fracture. No dislocation. Soft tissues: Clips in the inguinal regions bilaterally. Vasculature: Scattered atherosclerotic vascular calcifications. Right external iliac/common femoral artery stent. Calcified and noncalcified plaque in the aorta and branch vessels. No abdominal aortic aneurysm. Lymph nodes: Unremarkable. No enlarged lymph nodes. IMPRESSION: No acute findings in the abdomen or pelvis. Electronically signed by: Jim Arechiga MD 09/15/2021 1:10 AM CDT Due to temporary technical issues with the PACS/Fluency reporting system, reports are being signed by the in house radiologist without review as a courtesy to ensure prompt reporting. The interpreting r adiologist is fully responsible for the content of the report.
== END 2021-09-15 02:54 | disposition home or self-care (01) ==
LOC: ER 20:51
DX: M54.50 Low back pain, unspecified (principal); E11.65 Type 2 diabetes mellitus with hyperglycemia; F17.210 Nicotine dependence, cigarettes, uncomplicated; I10 Essential (primary) hypertension; Z88.5 Allergy status to narcotic agent; Z91.048 Other nonmedicinal substance allergy status; Z95.1 Presence of aortocoronary bypass graft
CPT/HCPCS: 96361; 85025; 36415; 82947; 83690; 80053; 74177; 96375; 96374; 99284; Q9967; J1815; J3010; J7030; 81003; 81015

== ENCOUNTER 2021-09-21 04:50 | Emergency (ER) | payer OTHER ==
--- OUTSIDE RECORDS SUMMARY | 2021-09-21 04:55 | XMS REPORT | Continuity of Care Document ---
:1970 Author Organization [facility] t Address [address] [place] [address] Care Team Providers Name Role Phone Lucas BROWN, A Primary Care Physician BANG Attending Clinician Unavailable Michael VILLEGAS Attending Clinician Unavailable Doctor Unassigned, Name Attending Clinician Unavailable Lucas BROWN, A Attending Clinician Payers Payer Name Policy Type Policy Number Effective Date Expiration Date [facility] PART A [id number] 2017 \T\ B 00:00:00 Problems Condition Condition [...] of 00:00: [place] 00 Medical Branch CAD in CAD in Disease Active Univers beaver beaver 7-05 ity of artery artery 00:00: 00 Medical Branch Hypoglycem Hypoglycem Disease Active U nivers ia ia 6-11 ity of 00:00: [place] 00 Medical Branch 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 5-06 it y of on on 00:00: [place] 00 Medical Branch Poor Poor Disease Active [...] 00:00: [place] involving involving 00 Medi blanquita be[place] beaver Branch coronary coronary artery of artery of beaver beaver heart heart without without angina angina pectoris [...] Added automatic ally from request for surgery [id number] High High Disease Active Univers cholestero cholestero it y of l l [facility] HTN HTN Disease Active Univers (hypertens (hypertens it y of ion) ion) [facility] GERD GERD Disease Active Univers (gastroeso (gastroeso it y of phageal phageal [place] reflux reflux Medical disease) disease) Branch DM DM Disease Active Univers (diabetes (diabetes ity of mellitus) mellitus) [facility] Depression Depression Disease Active U nivers ity of [facility] CVA CVA Disease Active Univers (cerebral (cerebral ity of vascular vascular [place] accident) accident) [facility] CHF CHF Disease Active Univers (congestiv (congestiv it y of e heart e heart [place] failure) failure) [facility] Anxiety Anxiety Disease Active Univers ity of [facility] Angina Angina Disease Active Univers pectoris pectoris ity [facility] H/O right H/O right Disease Active [...] of on, benign [place], benign [place] [facility] Branch Hx of CABG Hx of CABG Disease Active U nivers ity [facility] Migraines Migraines Disease Active Uni vers ity [facility] Seizures Seizures Disease Active Unive rs ity [facility] Unilateral Unilateral Disease Active U nivers AKA, right AKA, right it y of [facility] History of History of Problem Active C [...] [facility] Chronic Chronic Problem Active [facility] pain pain [facility] - disorder disorder Memori a l [facility] half-way half-way Problem Active [facility] current current [facility] - use of use of Memoria insulin insulin l [facility] Neuropathy Neuropathy Problem Active [facility] Depression Depression Problem Active [facility] with with [facility] - anxiety anxiety [facility] HTN HTN Problem Active [facility] (hypertens (hypertens Charley kes - ion), ion), Memoria benign benign l [facility] Seizures Seizures Problem Active [facility] Coronary Coronary Problem Active [facility] t artery artery [facility]ukes - disease disease Memoria involving involving l coronary coronary Outpat i bypass bypass ent graft of graft of Clinic s beaver beaver heart with heart with angina angina pectoris pectoris Dependent Dependent Problem Active [facility] on on [facility] - wheelchair wheelchair Me moria l [facility] ent Clinics History of History of Problem Active C [facility] right right [facility] - above knee above knee Me moria amputation amputation l [facility] Allergies, Adverse Reactions, Alerts Allergy [...] [facility] Reaction Available [facility] tramadol Adverse Active Info Not [facility] t Reaction Available [facility] Social History Social Habit Start Date Stop Date Quantity Comments Source History of tobacco Cigarette Smoker University of use [facility] Exposure to Not sure University of SARS-CoV-2 (event) [facility] Alcohol intake 2021-06-21 2021-06-21 Ex-drinker [facility] 00:00:00 00:00:00 (finding) [facility] Education 2021-01-15 2021-01-15 12 University of 00:00:00 00:00:00 [facility] Branch History SDOH 2020-05-08 2020-05-08 99 University o f Alcohol Frequency 00:00:00 00:00:00 [facility] SDOH 2020-05-08 2020-05-08 99 University o f Alcohol Std Drinks 00:00:00 00:00:00 [place] Medical Branch History SDGA 2020-05-08 2020-05-08 99 [place] o f Alcohol Binge 00:00:00 00:00:00 [facility] Branch Tobacco Comment 2020-04-03 2020-04-03 smoking since 12 Uni versity of 00:00:00 00:00:00 years old [facility] Alcohol Comment 2019-10-11 2019-10-11 rare Universit y of 00:00:00 00:00:00 [facility] Cigarettes smoked 2018-02-21 2018-02-21 Univers ity of current (pack per 00:00:00 00:00:00 ) - Reported Branch Tobacco use and 2018-02-21 2018-02-21 Never used Universit y of exposure 00:00:00 00:00:00 [facility] Sex [birth year] At [birth year] Universit y of 00:00:00 00:00:00 [facility] Smoking Status Start Date Stop Date Source Current every day smoker 2018-02-21 00:00:00 Uni versity of [facility] Medications Ordered Filled Start Stop Current Ordering Indication Dosage Frequency Signature Comments Components Source Medication Medication Date Date Medication? Clinician (SIG) Name Name GABAPENTIN Yes [id number] TAKE 1 Univers 800 mg 2-25 TABLET BY ity of tablet 00:00: MOUTH [place] [address] THREE Medical TIMES Branch DAILY MIRTAZAPINE 2020-05 Yes [id number] 15mg TAKE 1 Univers 15 mg 2-20 TABLET BY ity of tablet 00:00: MOUTH AT [place] [address] BEDTIME [facility] MIRTAZAPINE 2020-05 Yes [id number] 15mg TAKE 1 Univers 15 mg 2-20 TABLET BY ity of tablet 00:00: MOUTH AT [place] 00 BEDTIME Medical Branch MIRTAZAPINE 2020-1 Yes [id number] 15mg TAKE 1 Univers 15 mg 2-20 TABLET BY ity of tablet 00:00: MOUTH AT [place] BEDTIME Medical Branch MIRTAZAPINE 2020-1 Yes [id number] 15mg TAKE 1 Univers 15 mg 2-20 TABLET BY ity of tablet 00:00: MOUTH AT [place] BEDTIME Medical Branch gabapentin 2020-0 Yes [id number] 800mg Take 1 Univers 800 mg 8-20 tablet by ity of tablet 00:00: mouth 3 (three) Medical times Branch daily. gabapentin 2020-0 Yes [id number] 800mg Take 1 Univers 800 mg 8-20 tablet by ity of tablet 00:00: mouth 3 (three) Medical times Branch daily. gabapentin 2020-0 Yes [id number] 800mg Take 1 Univers 800 mg 8-20 tablet by ity of tablet 00:00: mouth 3 (three) Medical times Branch daily. ondansetron 2020-0 Yes [id number] 4mg Take 1 Univers 4 mg 8-06 tablet by ity of disintegrat 00:00: mouth [place] ing tablet 00 every 8 Medica l (eight) Branch hours as needed for Nausea and Vomiting (N/V). ondansetron 2020-0 Yes [id number] 4mg Take 1 Univers 4 mg 8-06 tablet by ity of disintegrat 00:00: mouth [place] ing tablet 00 every 8 Medica l (eight) Branch hours as needed for Nausea and Vomiting (N/V). ondansetron 2020-0 Yes [id number] 4mg Take 1 Univers 4 mg 8-06 tablet by ity of disintegrat 00:00: mouth [place] ing tablet 00 every 8 Medica l (eight) Branch hours as needed for Nausea and Vomiting (N/V). ondansetron 2020-0 Yes [id number] 4mg Take 1 Univers 4 mg 8-06 tablet by ity of disintegrat 00:00: mouth [place] ing tablet 00 every 8 Medica l (eight) Branch hours as needed for Nausea and Vomiting (N/V). aspirin 81 2020-0 Yes [id number] 81mg Take 1 U nivers mg chewable 7-07 tablet by ity of tablet 00:00: mouth [place] 00 daily. Medical Branch clopidogreL 1-0 Yes [id number] 75mg Take 1 Univers 75 mg 7-07 tablet by ity of tablet 00:00: mouth [place] 00 daily. Medical Branch aspirin 81 1-0 Yes [id number] 81mg Take 1 U nivers mg chewable 7-07 tablet by ity of tablet 00:00: mouth [place] 00 daily. Medical Branch clopidogreL 2021-0 Yes [id number] 75mg Take 1 Univers 75 mg 7-07 tablet by ity of tablet 00:00: mouth [place] 00 daily. Medical Branch aspirin 81 1-0 Yes [id number] 81mg Take 1 U nivers mg chewable 7-07 tablet by ity of tablet 00:00: mouth [place] 00 daily. Medical Branch clopidogreL 2021-0 Yes [id number] 75mg Take 1 Univers 75 mg 7-07 tablet by ity of tablet 00:00: mouth [place] 00 daily. Medical Branch aspirin 81 1-0 Yes [id number] 81mg Take 1 U nivers mg chewable 7-07 tablet by ity of tablet 00:00: mouth [place] 00 daily. Medical Branch clopidogreL 1-0 Yes [id number] 75mg Take 1 Univers 75 mg 7-07 tablet by ity of tablet 00:00: mouth [place] 00 daily. Medical Branch ezetimibe 1-0 Yes [id number] 10mg Take 1 U nivers 10 mg 6-18 tablet by ity of tablet 00:00: mouth [place] 00 daily. Medical Branch furosemide 1-0 Yes [id number] 1 tablet Univers 20 mg 6-18 02 as needed ity of tablet 00:00: for leg [place] 00 swelling Medical Branch ezetimibe 1-0 Yes [id number] 10mg Take 1 U nivers 10 mg 6-18 tablet by ity of tablet 00:00: mouth [place] 00 daily. Medical Branch furosemide 2021-0 Yes [id number] 1 tablet Univers 20 mg 6-18 02 as needed ity of tablet 00:00: for leg [place] 00 swelling Medical Branch ezetimibe 2021-0 Yes [id number] 10mg Take 1 U nivers 10 mg 6-18 tablet by ity of tablet 00:00: mouth [place] 00 daily. Medical Branch furosemide 2021-0 Yes [id number] 1 tablet Univers 20 mg 6-18 02 as needed ity of tablet 00:00: for leg [place] 00 swelling Medical Branch ezetimibe Yes [id number] 10mg Take 1 U nivers 10 mg 6-18 tablet by ity of tablet 00:00: mouth 00 daily. Medical Branch furosemide Yes [id number] 1 tablet Univers 20 mg 6-18 02 as needed ity of tablet 00:00: for leg 00 swelling Medical Branch insulin NPH Yes [id number] 40U inject Univers and regular 5-12 40-50 ity of human 70-30 00:00: Units [place] (NOVOLIN 00 under the Medica l 70/30 U-100 skin 2 Branch INSULIN) (two) 100 unit/mL times (70-30) daily injection before breakfast and dinner. insulin NPH Yes [id number] 40U inject Univers and regular 5-12 40-50 ity of human 70-30 00:00: Units [place] (NOVOLIN 00 under the Medica l 70/30 U-100 skin 2 Branch INSULIN) (two) 100 unit/mL times (70-30) daily injection before breakfast and dinner. insulin NPH Yes [id number] 40U inject Univers and regular 5-12 40-50 ity of human 70-30 00:00: Units [place] (NOVOLIN 00 under the Medica l 70/30 U-100 skin 2 Branch INSULIN) (two) 100 unit/mL times (70-30) daily injection before breakfast and dinner. insulin NPH Yes [id number] 40U inject Univers and regular 5-12 40-50 ity of human 70-30 00:00: Units [place] (NOVOLIN 00 under the Medica l 70/30 U-100 skin 2 Branch INSULIN) (two) 100 unit/mL times (70-30) daily injection before breakfast and dinner. atorvastati Yes [id number] 80mg Take 1 Univers n 80 mg 5-06 tablet by ity of tablet 00:00: mouth at [place] 00 bedtime. Medical Branch atorvastati Yes [id number] 80mg Take 1 Univers n 80 mg 5-06 tablet by ity of tablet 00:00: mouth at [place] 00 bedtime. [facility] Branch atorvastati Yes [id number] 80mg Take 1 Univers n 80 mg 5-06 tablet by ity of tablet 00:00: mouth at [place] 00 bedtime. Medical Branch atorvastati Yes [id number] 80mg Take 1 Univers n 80 mg [...] [place] 00 involving bedtime. Medica l [place] Branch coronary artery of beaver heart without angina pectoris glipiZIDE Yes Type [...] [place] 00 involving bedtime. Medica l [place] Branch coronary artery of [place]aver heart without angina pectoris ezetimibe 2020- No [...] :00 involving daily for Medi blanquita tablet [place]aver 30 days. Branch coronary artery of beaver heart without angina pectoris SITagliptin 2020- No [...] :00 involving daily for Medi blanquita tablet [place] 30 days. Branch coronary artery of beaver heart without angina pectoris SITagliptin 2020- No [...] Medical DAILY WITH Branch MEALS pantoprazol Yes [id number] 40mg Take 1 Univers e 40 mg EC 1-11 tablet by ity of tablet 00:00: mouth [place] 00 daily. Medical Branch pantoprazol Yes [id number] 40mg Take 1 Univers e 40 mg EC 1-11 tablet by ity of tablet 00:00: mouth [place] 00 daily. Medical Branch pantoprazol Yes [id number] 40mg Take 1 Univers e 40 mg EC 1-11 tablet by ity of tablet 00:00: mouth [place] 00 daily. Medical Branch pantoprazol Yes [id number] 40mg Take 1 Univers e 40 mg [...] as 00 :00 involving bedtime. Medica l beaver Branch coronary artery of beaver heart without angina pectoris atorvastati 2020- No Coronary 80mg Take 1 Univers n 80 mg 3-20 -06 artery tablet by ity of tablet 00:00: 00:00 disease mouth at [place] 00 :00 involving bedtime. Medica l [place] Branch coronary artery of beaver heart without angina pectoris nitroglycer 2018-05 Yes [id number] 1 tab SL Univers in 0.4 mg 0-29 q5min up ity of sublingual 00:00: to 3 doses [place] tablet 00 PRN chest Medical pain, then Branch activate 911. nitroglycer 2018-05 Yes [id number] 1 tab SL Univers in 0.4 mg 0-29 q5min up ity of sublingual 00:00: to 3 doses [place] tablet 00 PRN chest Medical pain, then Branch activate 911. nitroglycer 2018-05 Yes [id number] 1 tab SL Univers in 0.4 mg 0-29 q5min up ity of sublingual 00:00: to 3 doses [place] tablet 00 PRN chest Medical pain, then Branch activate 911. nitroglycer 2018-05 Yes [id number] 1 tab SL Univers in 0.4 mg [...] [facility] [place] Yes Dada [address] [facility] [...] Bisulfate [facility] Furosemide Furosemide Yes Dada [address] [facility] Immunizations Ordered Filled Immunization Date Status Comments Sourc e Immunization Name Name SARS-COV-2 COVID-19 2021-01-17 Completed Unive rsity of PFIZER VACCINE 00:00:00 [facility] SARS-COV-2 COVID-19 2021-01-17 Completed Unive rsity of PFIZER VACCINE 00:00:00 [facility] SARS-COV-2 COVID-19 2021-01-17 Completed Unive rsity of PFIZER VACCINE 00:00:00 [facility] SARS-COV-2 COVID-19 2021-01-17 Completed Unive rsity of PFIZER VACCINE 00:00:00 [facility] Vital Signs Vital Name Observation Time Observation Value Comments Source Systolic blood 2021-06-21 22:04:00 136 mm[Hg] Univer sit of [place] pressure [facility] Diastolic blood 2021-06-21 22:04:00 81 mm[Hg] Unive rsity of [place] [facility] Heart rate 2021-06-21 22:04:00 96 /min [facility] Oxygen saturation 2021-06-21 22:03:00 99 /min [facility] Arterial blood [facility] Br anch by Pulse oximetry Heart rate 2020-10-01 20:20:00 60 /min [facility] Systolic blood 2020-10-01 20:20:00 120 mm[Hg] Univer sity of [place] pressure [facility] Diastolic blood 2020-10-01 20:20:00 80 mm[Hg] Unive rsity of [facility] Heart rate 2020-10-01 20:20:00 60 /min [facility] Systolic blood 2020-10-01 20:20:00 120 mm[Hg] Univer sity of [place] pressure Medical Branch Diastolic blood 2020-10-01 20:20:00 80 mm[Hg] Unive rsity of [place] [facility] Procedures Procedure Date / Time Performed Performing Clinician Sour e EXTERNAL PROVIDER 2021-08-09 05:01:00 Doctor Unassigned, No Univ ersity [facility] RECORDS Name Medical Branch EXTERNAL PROVIDER 2021-07-19 06:01:00 Doctor Unassigned, No [facility] Name Medical Branch POCT GLUCOSE 2021-06-21 22:47:00 Dev Zavala Universi ty of [place] (AUTOMATED) Medical Branch POCT GLUCOSE(AGE 2021-06-21 00:00:00 Dev Zavala Univers ity of [place] >30DAYS) Medical Branch Plan of Care Planned Activity Planned Date Details Comments Source Future Scheduled 2022 Screening for University [facility] Test 00:00:00 malignant neoplasm of Medica l Branch colon (procedure) [code = 142427257] Future Scheduled 2022 Screening for University [facility] Test 00:00:00 malignant neoplasm of Medica l Branch colon (procedure) [code = 648609339] Future Scheduled 2021-09-07 Creatinine [facility] [place] Test 00:00:00 measurement Medical Branch (procedure) [code = 01848184] Future Scheduled 2021-09-07 Creatinine [facility] [place] Test 00:00:00 measurement Medical Branch (procedure) [code = 43633802] Future Scheduled 2021-09-05 Calculated low Universit y of [place] Test 00:00:00 density lipoprotein Medical Branch cholesterol level (procedure) [code = 686337386] Future Scheduled 2021-09-05 Calculated low Universit y of [place] Test 00:00:00 density lipoprotein Medical Branch cholesterol level (procedure) [code = 718292792] Future Scheduled 2021-05-08 Depression screening Uni versity of [place] Test 00:00:00 (procedure) [code = Medical Branch 129668156] Future Scheduled 2021-05-08 Depression screening Uni versity of [place] Test 00:00:00 (procedure) [code = Medical Branch 272537021] Future Scheduled 2021-03-07 Hemoglobin A1c Universit y [facility] [place] Test 00:00:00 measurement Medical Branch (procedure) [code = 00570778] Future Scheduled 2021-03-07 Hemoglobin A1c Universit y of [place] Test 00:00:00 measurement Medical Branch (procedure) [code = 27353978] Future Scheduled 2021-01-27 INFLUENZA VACCINE Univer [facility] Test 00:00:00 (Season Ended) [code Medical Branch = INFLUENZA VACCINE (Season Ended)] Future Scheduled 2021-01-27 INFLUENZA VACCINE Univer [facility] Test 00:00:00 (Season Ended) [code Medical Branch = INFLUENZA VACCINE (Season Ended)] Future Scheduled 2020-10-31 Screening for [facility] Test 00:00:00 malignant neoplasm of Medica l Branch breast (procedure) [code = 219821518] Future Scheduled 2020-10-31 Screening for [facility] Test 00:00:00 malignant neoplasm of Medica l Branch breast (procedure) [code = 695779386] Future Scheduled 2020-09-25 Screening for [facility] Test 00:00:00 malignant neoplasm of Medica l Branch cervix (procedure) [code = 739635658] Future Scheduled 2020-09-25 Screening for [facility] Test 00:00:00 malignant neoplasm of Medica l Branch cervix (procedure) [code = 837068073] Future Scheduled 2020-05-10 Diabetic foot [facility] Test 00:00:00 examination Medical Branch (regime/therapy) [code = 344471345] Future Scheduled 2020-05-10 Diabetic foot [facility] Test 00:00:00 examination Medical Branch (regime/therapy) [code = 862063869] Future Scheduled 2019-09-01 Microalbumin [facility] Test 00:00:00 measurement, urine, Medical Branch quantitative (procedure) [code = 911149358] Future Scheduled 2019-09-01 Microalbumin [facility] Test 00:00:00 measurement, urine, Medical Branch quantitative (procedure) [code = 107532037] Future Scheduled 1991 DTaP,Tdap,and Td Univers ity [facility] Test 00:00:00 Vaccines (1 - Tdap) Medical Branch [code = DTaP,Tdap,and Td Vaccines (1 - Tdap)] Future Scheduled 1991 DTaP,Tdap,and Td Univers ity [facility] Test 00:00:00 Vaccines (1 - Tdap) Medical Branch [code = DTaP,Tdap,and Td Vaccines (1 - Tdap)] Future Scheduled 1990 Hepatitis C screening Un iversity [facility] Test 00:00:00 (procedure) [code = Medical Branch 474853640] Future Scheduled 1990 Hepatitis C screening Un iversity [facility] Test 00:00:00 (procedure) [code = Medical Branch 984710312] Future Scheduled 1988 SARS-CoV-2 (COVID-19) Un iversity of [place] Test 00:00:00 Vaccine (1) [code = Medical Branch SARS-CoV-2 (COVID-19) Vaccine (1)] Future Scheduled 1988 SARS-CoV-2 (COVID-19) Un iversity of [place] Test 00:00:00 Vaccine (1) [code = Medical Branch SARS-CoV-2 (COVID-19) Vaccine (1)] Future Scheduled 1982 Examination of retina Un iversity of [place] Test 00:00:00 (procedure) [code = Medical Branch 715630485] Future Scheduled 1982 Examination of retina Un iversity of [place] Test 00:00:00 (procedure) [code = Medical Branch 103058777] Future Scheduled 1978 PNEUMOCOCCAL 0-64 Univer sity [...] Department ID 2021-10-15 2021-10-15 Outpatient Sonya CUENCA [facility] [id number] Univers 09:00:00 09:00:00 ALDA [id number] yue [facility] 2021-10-15 2021-10-15 Outpatient R BANG [facility] [id number] Univers 09:00:00 09:00:00 ALDA turner [facility] 2021-08-27 2021-08-27 Outpatient R BAKARI [facility] [id number] Univers 16:00:00 17:02:36 ANYA [facility] 2021-08-09 2021-08-09 Irene TOM [id number] Univers 00:00:00 00:00:00 Only Unassigned, ARTURO [id number] ity of [facility] [id number] [place] [id number] [address] 2021-07-19 2021-07-19 Orders Doctor VAISHALI [id number] Univers 00:00:00 00:00:00 Only Unassigned, ARTURO [id number] ity of [facility] [id number] [place] [id number] [address] 2021-07-05 2021-07-05 Telephone [facility] [id number] Univers 00:00:00 00:00:00 Wondiful A HEALTH [id number] ity of [place] [id number] [place] as DILLAN?BLEA [id number] [address] OFFICE BUILDING 2021-06-21 2021-06-21 Office [facility] [id number] [facility] 16:00:00 16:54:48 Visit Wondiful A HEALTH [id number] ity of [place] [id number] [place] DILLAN?BLEA [id number] [address] OFFICE BUILDING 2020-10-01 2020-10-01 Office [facility] [id number] 15:08:27 16:09:31 Visit Wondiful A Health [id number] [place] [id number] Professio [id number] [place] [address] Office [facility] 2018-06-27 2018-06-27 [facility] [id number] 11:57:00 11:57:00 t [facility] Medicine Outpati ent Clinics 2018-06-15 2018-06-15 [facility] [id number] 16:24:00 16:24:00 t Yeelion [facility] Medicine Outpati ent [facility] 2018-06-13 2018-06-13 [facility] [id number] 13:30:00 13:30:00 t [employer] [facility] Outpati ent Clinics 2017-12-12 2017-12-12 [facility] [id number] 13:22:00 13:22:00 t [employer] [facility] Outpati ent Clinics 2017-11-20 2017-11-20 [facility] [id number] 10:30:00 10:30:00 [employer] [facility] Outpati ent Clinics 2017-11-02 2017-11-02 [facility] [id number] 15:15:00 15:15:00 Outline [employer] [facility] ent Clinics Results Test Description Test Time Test Comments Results Result Comments Source POCT GLUCOSE (AUTOMATED) 2021-06-21 22:49:56 Test Item Value Reference Range Interpretation Comme nts POCT GLU (test code = 1413477400) 384 mg/dL 70-110 H Lab Interpretation (test code = 76962-6) Abnormal [facility] [place] [facility] >30DAYS[facility]2021-06-21 22:30:00 Test Item Value Reference Range Interpretation Comments POCT Glu (age>30days) (test code = 384 mg/dL 70-110 A 3342) Lab Interpretation (test code = Abnormal 09586-9) [facility] [place] [facility]
[2021-09-21] MEDS ORDERED: NA CHLORIDE 0.9% 500 ML ONE (06:15)
[2021-09-21] MEDS ORDERED: ONDANSETRON 4 MG/2 ML VIAL ONE (06:15)
[2021-09-21] MEDS ORDERED: MORPHINE 4 MG/ML SYR ONE (06:15)
--- NOTE | 2021-09-21 06:41 | ER ---
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 Coronavirus screen: At this time, the client does not indicate any symptoms associated with coronavirus-19. Ebola Screen: No symptoms or risks identified at this time. Initial Sepsis Screen: Does the patient meet any 2 criteria? No. Patient's initial sepsis screen is negative. Does the patient have a suspected source of infection? No. Patient's initial sepsis screen is negative. Risk Assessment: Do you want to hurt yourself or someone else? Patient reports no desire to harm self or others. Onset of symptoms was September 20, 2021. 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 - Social history:: Smoking status: Patient reports the use of cigarette tobacco products. - Family history:: not pertinent. Screenin:02 Abuse screen: Denies threats or abuse. Denies injuries from another. Nutritional sm5 screening: No deficits noted. Tuberculosis screening: No symptoms or risk factors identified. Fall Risk None identified. Assessment: 06:00 General: Appears in no apparent distress. Behavior is cooperative. Pain: Complains of sm5 pain in left dorsalis pedis artery and left posterior tibial artery and left leg. Neuro: No deficits noted. Level of Consciousness is awake, alert, obeys commands, Oriented to person, place, time, situation. Cardiovascular: No deficits noted. Capillary refill < 3 seconds Patient's skin is warm and dry. Cardiovascular: Pulses are all present. Respiratory: No deficits noted. Airway is patent Trachea midline Respiratory effort is even, unlabored. Vital Signs: 05:29 BP 132 / 97; Pulse 86; Resp 16 S; Temp 98.1(O); Pulse Ox 99% on R/A; Weight 58.97 kg bb (R); Height 5 ft. 4 in. (162.56 cm) (R); Pain 10/10; 05:29 Body Mass Index 22.31 (58.97 kg, 162.56 cm) bb ED Course: 04:53 Patient arrived in ED. bp1 05:27 Isidro Villa MD is Attending Physician. chasity 05:30 Triage completed. bb 05:30 Arm band placed on Patient placed in an exam room, on a stretcher, on pulse oximetry. bb 06:10 Inserted saline lock: 22 gauge in right forearm, using aseptic technique. bb 06:24 Marietta Son RN is Primary Nurse. sm5 06:40 Griffin Mejia MD is Referral Physician. chasity 07:02 Patient has correct armband on for positive identification. Placed in gown. Bed in low sm5 position. Call light in reach. Side rails up X2. Pulse ox on. NIBP on. 07:02 No provider procedures requiring assistance completed. IV discontinued, intact, sm5 bleeding controlled, No redness/swelling at site. Pressure dressing applied. Administered Medications: 06:10 Drug: NS 0.9% 500 ml Route: IV; Rate: bolus; Site: right forearm; bb 06:45 Follow up: IV Status: Completed infusion; IV Intake: 500ml sm5 06:11 Drug: Zofran (Ondansetron) 4 mg Route: IVP; Site: right forearm; bb 07:00 Follow up: Response: Nausea is decreased sm5 06:13 Drug: morphine 4 mg {Note: RASS 0.} Route: IVP; Site: right antecubital; bb 07:01 Follow up: Response: Pain is decreased sm5 Intake: 06:45 IV: 500ml; Total: 500ml. sm5 Outcome: 06:40 Discharge ordered by . chasity 07:02 Discharged to home via wheelchair. sofia 07:02 Condition: stable 07:02 Discharge instructions given to patient, Instructed on discharge instructions, follow up and referral plans. medication usage, Demonstrated understanding of instructions, follow-up care, medications, Prescriptions given X 1. 07:03 Patient left the ED. [email or web address] Signatures: Isidro Villa MD MD cha Ballard, Brenda, RN RN Monica Craig Sarah, RN RN [facility]
--- NOTE | 2021-09-21 06:41 | EDPHYS ---
Physician Documentation [facility] Name: Karen Shah Age: 51 yrs Sex: Female : 1970 Arrival Date: 09/21/2021 Time: 04:53 Bed 14 Private MD: Isidro Kincaid HPI: 09/21 05:50 This 51 yrs old Female presents to ER via Wheelchair with complaints of Foot chasity Pain. 05:50 The patient presents with pain, that is chronic. The complaints affect the left foot, chasity left leg. Context: The problem was sustained at home, resulted from neuropathy. Onset: The symptoms/episode began/occurred yesterday. Modifying factors: The symptoms are alleviated by nothing, the symptoms are aggravated by nothing. Associated signs and symptoms: The patient has no apparent associated signs or symptoms. Severity of symptoms: At their worst the symptoms were mild. The patient has not experienced similar symptoms in the past. 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 - Social history:: Smoking status: Patient reports the use of cigarette tobacco products. - Family history:: not pertinent. ROS: 05:50 Constitutional: Negative for fever, chills, and weight loss, Eyes: Negative for injury, chasity pain, redness, and discharge, ENT: Negative for injury, pain, and discharge, Neck: Negative for injury, pain, and swelling, Cardiovascular: Negative for chest pain, palpitations, and edema, Respiratory: Negative for shortness of breath, cough, wheezing, and pleuritic chest pain, Abdomen/GI: Negative for abdominal pain, nausea, vomiting, diarrhea, and constipation, Back: Negative for injury and pain, : Negative for injury, bleeding, discharge, and swelling, Skin: Negative for injury, rash, and discoloration, Neuro: Negative for headache, weakness, numbness, tingling, and seizure, Psych: Negative for depression, anxiety, suicide ideation, homicidal ideation, and hallucinations, Allergy/Immunology: Negative for hives, rash, and allergies, Endocrine: Negative for neck swelling, polydipsia, polyuria, polyphagia, and marked weight changes. 05:50 MS/extremity: Positive for pain, paresthesias, of the left leg. Exam: 05:50 Constitutional: This is a well developed, well nourished patient who is awake, alert, chasity and in no acute distress. Head/Face: Normocephalic, atraumatic. Eyes: Pupils equal round and reactive to light, extra-ocular motions intact. Lids and lashes normal. Conjunctiva and sclera are non-icteric and not injected. Cornea within normal limits. Periorbital areas with no swelling, redness, or edema. ENT: Nares patent. No nasal discharge, no septal abnormalities noted. Tympanic membranes are normal and external auditory canals are clear. Oropharynx with no redness, swelling, or masses, exudates, or evidence of obstruction, uvula midline. Mucous membranes moist. Neck: Trachea midline, no thyromegaly or masses palpated, and no cervical lymphadenopathy. Supple, full range of motion without nuchal rigidity, or vertebral point tenderness. No Meningismus. Chest/axilla: Normal chest wall appearance and motion. Nontender with no deformity. No lesions are appreciated. Cardiovascular: Regular rate and rhythm with a normal S1 and S2. No gallops, murmurs, or rubs. Normal PMI, no JVD. No pulse deficits. Respiratory: Lungs have equal breath sounds bilaterally, clear to auscultation and percussion. No rales, rhonchi or wheezes noted. No increased work of breathing, no retractions or nasal flaring. Abdomen/GI: Soft, non-tender, with normal bowel sounds. No distension or tympany. No guarding or rebound. No evidence of tenderness throughout. Back: No spinal tenderness. No costovertebral tenderness. Full range of motion. Skin: Warm, dry with normal turgor. Normal color with no rashes, no lesions, and no evidence of cellulitis. Neuro: Awake and alert, GCS 15, oriented to person, place, time, and situation. Cranial nerves II-XII grossly intact. Motor strength 5/5 in all extremities. Sensory grossly intact. Cerebellar exam normal. Normal gait. Psych: Awake, alert, with orientation to person, place and time. Behavior, mood, and affect are within normal limits. 05:50 Musculoskeletal/extremity: Pulses: noted to be 2+ in the left posterior tibial artery and left dorsalis pedis artery, decreased sensation, Compartment Syndrome exam of affected extremity: is normal. Weight bearing: able to fully bear weight, Tendon exam: specific tendon testing normal through active and passive range of motion DVT Exam: no swelling, negative Homans' sign noted on exam, no appreciated bluish discoloration, no erythema, no increased warmth, pain, tenderness. Vital Signs: 05:29 BP 132 / 97; Pulse 86; Resp 16 S; Temp 98.1(O); Pulse Ox 99% on R/A; Weight 58.97 kg bb (R); Height 5 ft. 4 in. (162.56 cm) (R); Pain 10/10; 05:29 Body Mass Index 22.31 (58.97 kg, 162.56 cm) bb MDM: 05:27 Patient medically screened. [facility] 05:53 Differential diagnosis: arthritis, cellulitis. Data reviewed: vital signs, nurses chasity notes. Data interpreted: traffic monitor specialist: not applicable for this patient encounter. rate is 86 beats/min, rhythm is regular, Pulse oximetry: on room air is 99 %. Counseling: I had a detailed discussion with the patient and/or guardian regarding: the historical points, exam findings, and any diagnostic results supporting the discharge/admit diagnosis, lab results, radiology results, the need for outpatient follow up, for definitive care, a riffler tender. 09/21 05:50 Order name: [facility]. Order: doppler dorsal pedis/post tibial; Complete Time: 06:53 chasity Administered Medications: 06:10 Drug: NS 0.9% 500 ml Route: IV; Rate: bolus; Site: right forearm; bb 06:45 Follow up: IV Status: Completed infusion; IV Intake: 500ml sm5 06:11 Drug: Zofran (Ondansetron) 4 mg Route: IVP; Site: right forearm; bb 07:00 Follow up: Response: Nausea is decreased sm5 06:13 Drug: morphine 4 mg {Note: RASS 0.} Route: IVP; Site: right antecubital; bb 07:01 Follow up: Response: Pain is decreased sm5 Disposition Summary: 09/21/21 06:40 Discharge Ordered Location: Home [facility] Problem: new chasity Symptoms: have improved chasity Condition: Stable chasity Diagnosis - Tobacco abuse counseling chasity - Tobacco use chasity - Peripheral vascular disease, unspecified chasity - Diabetes mellitus due to underlying condition with diabetic neuropathy, unspecified chasity Followup: chasity - With: Private Physician - When: 2 - 3 days - Reason: Recheck today's complaints, Continuance of care, Re-evaluation by your physician Followup: chasity - With: - When: 1 - 2 days - Reason: Recheck today's complaints, Re-evaluation by your physician Discharge Instructions: - Discharge Summary Sheet chasity - Diabetes Mellitus and Foot Care chasity - Peripheral Vascular Disease chasity - Steps to Quit Smoking chasity - Health Risks of Smoking chasity - Angiogram chasity - Peripheral Neuropathy chasity - Diabetic Neuropathy chasity - Steps to Quit Smoking, [id number] chasity - Peripheral Vascular Disease, [id number] chasity - Aspirin and Your Heart chasity Forms: - Medication Reconciliation Form chasity - Thank You Letter chasity - Antibiotic Education chasity - Prescription Opioid Use [facility] Prescriptions: - Tylenol-Codeine #3 300 mg-30 mg Oral - take 2 tablet by ORAL route every 6 hours; 20 tablet; Refills: 0, Product chasity Selection Permitted Signatures: Isidro Villa MD MD cha Ballard, Brenda, RN RN Marietta Fang RN sm5
[2021-09-21 07:12] VITALS: BP 132/97; TEMP 98.1; O2SAT 99
== END 2021-09-21 07:03 | disposition home or self-care (01) ==
LOC: ER 04:50
DX: E11.40 Type 2 diabetes mellitus with diabetic neuropathy, unspecified (principal); I73.9 Peripheral vascular disease, unspecified; Z72.0 Tobacco use; Z71.6 Tobacco abuse counseling; E78.00 Pure hypercholesterolemia, unspecified; I10 Essential (primary) hypertension; Z86.73 Personal history of transient ischemic attack (TIA), and cerebral infarction without residual deficits; Z95.1 Presence of aortocoronary bypass graft; Z88.5 Allergy status to narcotic agent; Z91.048 Other nonmedicinal substance allergy status
CPT/HCPCS: J7040; J2405; 99284

== ENCOUNTER 2021-10-03 17:06 | Inpatient (IN) | payer OTHER ==
--- OUTSIDE RECORDS SUMMARY | 2021-10-03 17:10 | XMS REPORT | Continuity of Care Document ---
:1970 Author Organization [facility] t Address [address] [place] [address] Care Team Providers Name Role Phone Lucas BROWN, A Primary Care Physician Mark BROWN, H Attending Clinician Lucas BROWN, A Attending Clinician Payers Payer Name Policy Type Policy Number Effective Date Expiration Date S ource Problems Condition Condition Condition Status Onset Resolution Last Treating Co mments Source Name Details Category Date Date Treatment Clinician Date UTI UTI Disease Active NPI:183 (urinary (urinary 820 575998 1 tract tract 00:00: infection) infection) 00 Dizziness Dizziness Disease Active NPI :183 8-20 [id number] 00:00: 00 Weakness Weakness Disease Active NPI:1 83 8-20 2053871 00:00: 00 CAD in CAD in Disease Active NPI:183 [place] 7-05 0860662 artery artery 00:00: 00 Hypoglycem Hypoglycem Disease Active N PI:183 ia ia 6-11 2910588 00:00: 00 Protein Protein Disease Active NPI:183 malnutriti malnutriti 5-06 13 22427 on on 00:00: 00 Poor Poor Disease Active NPI:183 appetite appetite 5-06 280616 1 00:00: 00 Hypoalbumi Hypoalbumi Disease Active N PI:183 nemia nemia 5-06 3831509 00:00: 00 Hyperglyce Hyperglyce Disease Active N PI:183 filomena butt 411 6044231 00:00: 00 Complicate Complicate Disease Active N PI:183 d UTI d UTI 09-05 [id number] (urinary (urinary 00:00: tract tract 00 infection) infection) 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 09-04 1318 781 diabetes diabetes 00:00: mellitus mellitus 00 with with hyperglyce hyperglyce filomena butt Chronic Chronic Disease Active 2019-05 NPI:183 hip pain, hip pain, 07-14 1318 781 left left 00:00: 00 Osteoarthr Osteoarthr Disease Active 2019-05 N PI:183 itis of itis of 07-14 [id number] left hip, left hip, 00:00: unspecifie unspecifie 00 d d osteoarthr osteoarthr itis type itis type Obesity Obesity Disease Active NPI:183 (BMI (BMI 08-11 1674411 30-39.9) 30-39.9) 00:00: 00 Chest pain Chest pain Disease Active N PI:183 16 4333016 00:00: 00 Coronary Coronary Disease Active NPI:1 83 artery artery 08-0481 disease disease 00:00: involving involving 00 [place] coronary coronary artery of artery of [place] heart heart without without angina angina pectoris pectoris PAD PAD Disease Active NPI:183 (periphera (periphera 08-04 l artery l artery 00:00: disease) disease) 00 Chronic Chronic Disease Active NPI:183 heart heart 08-0481 failure failure 00:00: with with 00 preserved preserved ejection ejection fraction fraction GARY GARY Disease Active Overview: NPI:18 3 (stress (stress 02-02 Formattin 63386 81 urinary urinary 00:00: g of this incontinen incontinen 00 note ce, ce, might be female) female) different from the original. Added automatic ally from request for surgery [id number] High High Disease Active NPI:183 cholestero cholestero l l HTN HTN Disease Active NPI:183 (hypertens (hypertens 13 15670 ion) ion) GERD GERD Disease Active NPI:183 (gastroeso (gastroeso 13 23787 phageal phageal reflux reflux disease) disease) DM DM Disease Active NPI:183 (diabetes (diabetes 1318 781 mellitus) mellitus) Depression Depression Disease Active N PI:505 4702194 CVA CVA Disease Active NPI:183 (cerebral (cerebral 1318 781 vascular vascular accident) accident) CHF CHF Disease Active NPI:183 (congestiv (congestiv 13 01053 e heart e heart failure) failure) Anxiety Anxiety Disease Active NPI:043 [id number] Angina Angina Disease Active NPI:183 pectoris pectoris 390157 1 H/O right H/O right Disease Active NPI :183 coronary coronary 061472 1 artery artery stent stent placement placement Hyperlipid Hyperlipid Disease Active N PI:183 emia, emia, 5104201 unspecifie unspecifie d d hyperlipid hyperlipid emia type emia type Essential Essential Disease Active NPI :183 hypertensi hypertensi 81 on, benign on, benign Hx of CABG Hx of CABG Disease Active N PI:808 0286887 Migraines Migraines Disease Active NPI :925 [id number] Seizures Seizures Disease Active NPI:1 83 [id number] Unilateral Unilateral Disease Active N PI:183 AKA, right AKA, right 13 19036 History of History of Problem Active N PI:174 CVA CVA 9248782 (cerebrova (cerebrova scular scular accident) accident) Migraine Migraine Problem Active NPI:1 74 without without 0532110 aura and aura and without without status status migrainosu migrainosu s, not s, not intractabl intractabl e e 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 320564 9 mellitus mellitus with with hyperglyce hyperglyce filomena filomena 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 863999 9 mellitus mellitus with other with other specified specified complicati complicati on on Hx of CABG Hx of CABG Problem Active N PI:595 4227305 Chronic Chronic Problem Active NPI:174 pain pain 8708912 disorder disorder jail jail Problem Active NPI :174 current current 5330542 use of use of insulin insulin Neuropathy Neuropathy Problem Active N PI:864 3966628 Depression Depression Problem Active N PI:174 with with 3945211 anxiety anxiety HTN HTN Problem Active NPI:174 (hypertens (hypertens 04 11564 ion), ion), benign benign Seizures Seizures Problem Active NPI:1 74 [id number] Coronary Coronary Problem Active NPI:1 74 artery artery 0387377 disease disease involving involving coronary coronary bypass bypass graft of graft of [place] heart with heart with angina angina pectoris pectoris Dependent Dependent Problem Active NPI :174 on on 0178294 wheelchair wheelchair History of History of Problem Active N PI:174 right right 8982507 above knee above knee amputation amputation Allergies, Adverse Reactions, Alerts Allergy Allergy Status Severity Reaction(s) Onset Inactive Treating Comm ents Source Name Type Date Date Clinician Ketorola Propensi Active Hives NPI:18 3 c ty to 12-15 0732588 Trometha adverse 00:00: mine reaction 00 s Tramadol Propensi Active Hives NPI:18 3 ty to 12-15 9323463 adverse 00:00: reaction 00 s Toradol Adverse Active Info Not NPI:17 4 Reaction Available 27627 79 tramadol Adverse Active Info Not NPI:1 74 Reaction Available 93271 79 Social History Social Habit Start Date Stop Date Quantity Comments Source History of tobacco Cigarette Smoker use Exposure to 2021-07-28 2021-08-27 Not sure NPI:[id number] 1 SARS-CoV-2 (event) 00:00:00 15:49:00 Alcohol intake 2021-06-21 2021-06-21 Ex-drinker NPI:[id number] 00:00:00 00:00:00 (finding) Education 2021-01-15 2021-01-15 12 00:00:00 00:00:00 History [facility] 2020-05-08 2020-05-08 99 NPI:[id number] Alcohol Frequency 00:00:00 00:00:00 History [facility] 2020-05-08 2020-05-08 99 NPI:[id number] 81 Alcohol Std Drinks 00:00:00 00:00:00 History [facility] 2020-05-08 2020-05-08 99 NPI:[id number] 81 Alcohol Binge 00:00:00 00:00:00 Tobacco Comment 2020-04-03 2020-04-03 smoking since NPI :[id number] 00:00:00 00:00:00 years old Alcohol Comment 2019-10-11 2019-10-11 rare NPI:[id number] 00:00:00 00:00:00 Cigarettes smoked 2018-02-21 2018-02-21 NPI:777 [id number] current (pack per 00:00:00 00:00:00 day) - Reported Tobacco use and 2018-02-21 2018-02-21 Never used NPI:41325 72201 exposure 00:00:00 00:00:00 [birth year] NPI:32731 60421 00:00:00 00:00:00 Smoking Status Start Date Stop Date Source Current every day smoker 2018-02-21 00:00:00 NPI :[id number] Medications Ordered Filled Start Stop Current Ordering Indication Dosage Frequency Signature Comments Components Source Medication Medication Date Date Medication? Clinician (SIG) Name Name GABAPENTIN Yes [id number] TAKE 1 NPI:183 800 mg 2-25 TABLET BY [id number] tablet 00:00: MOUTH 00 THREE TIMES DAILY MIRTAZAPINE 2020- Yes [id number] 15mg TAKE 1 NPI:183 15 mg 2-20 TABLET BY [id number] tablet 00:00: MOUTH AT 00 BEDTIME ondansetron 2020- Yes [id number] 4mg Take 1 NPI:183 4 mg 8-06 tablet by 4334365 disintegrat 00:00: mouth ing tablet 00 every 8 (eight) hours as needed for Nausea and Vomiting (N/V). aspirin 81 Yes [id number] 81mg Take 1 N PI:183 mg chewable 7-07 tablet by 131 8781 tablet 00:00: mouth 00 daily. clopidogreL 2020- Yes [id number] 75mg Take 1 NPI:183 75 mg 7-07 tablet by 9374596 tablet 00:00: mouth 00 daily. ezetimibe 2020- Yes [id number] 10mg Take 1 N PI:183 10 mg 6-18 tablet by 2456168 tablet 00:00: mouth 00 daily. furosemide 2020- Yes [id number] 1 tablet NPI:183 20 mg 6-18 02 as needed [id number] tablet 00:00: for leg 00 swelling insulin NPH 2020- Yes [id number] 40U inject NPI:183 and regular 5-12 40-50 [id number] human 70-30 00:00: Units (NOVOLIN 00 under the 70/30 U-100 skin 2 INSULIN) (two) 100 unit/mL times (70-30) daily injection before breakfast and dinner. atorvastati Yes [id number] 80mg Take 1 NPI:183 n 80 mg 5-06 tablet by [id number] tablet 00:00: mouth at 00 bedtime. glipiZIDE Yes Type 2 5mg Take 0.5 TYPE PROOF REPRODUCER I:183 10 mg 5-06 diabetes tablets by 1318 781 tablet 00:00: mellitus mouth 2 00 with (two) hypoglycemi times a without daily coma, with before long-term breakfast current use and of insulin dinner. mirtazapine Yes History of 15mg Take 1 NPI:183 15 mg 5-06 depression tablet by 131 8781 tablet 00:00: mouth at 00 bedtime. atorvastati Yes Coronary 80mg Take 1 NPI:183 n 80 mg 5-06 [place] [address] 81 tablet 00:00: disease mouth at 00 involving bedtime. [place] coronary artery of [place] heart without angina pectoris glipiZIDE Yes Type 2 5mg Take 0.5 TYPE PROOF REPRODUCER I:183 10 mg 5-06 diabetes tablets by 1318 781 tablet 00:00: mellitus mouth 2 00 with (two) hypoglycemi times a without daily coma, with before long-term breakfast current use and of insulin dinner. mirtazapine Yes History of 15mg Take 1 NPI:183 15 mg 5-06 depression tablet by 131 8781 tablet 00:00: mouth at 00 bedtime. atorvastati Yes Coronary 80mg Take 1 NPI:183 n 80 mg 5-06 [place] [address] 81 tablet 00:00: disease mouth at 00 involving bedtime. [place] coronary artery of [place] heart without angina pectoris ezetimibe 2020- No Uncontrolle 10mg Take 1 NPI:183 10 mg 4-13 05-14 d type 2 tablet by 1318 781 tablet 00:00: 04:59 diabetes mouth 00 :00 mellitus daily for with 30 days. hyperglycem ia insulin NPH 2020- No Uncontrolle 60U inject 60 NPI:183 and regular - 05-14 d type 2 Units 13 [id number] human 70-30 00:00: 04:59 diabetes under the (NOVOLIN 00 :00 mellitus skin 2 70/30 U-100 with (two) INSULIN) hyperglycem times 100 unit/mL ia daily (70-30) before injection breakfast and dinner for 30 days. ezetimibe 2020- No Uncontrolle 10mg Take 1 NPI:183 10 mg 09-08-14 d type 2 tablet by 1318 781 tablet 00:00: 04:59 diabetes mouth 00 :00 mellitus daily for with 30 days. hyperglycem ia insulin NPH 2020- No Uncontrolle 60U inject 60 NPI:183 and regular 09-08-14 d type 2 Units [id number] human 70-30 00:00: 04:59 diabetes under the (NOVOLIN 00 :00 mellitus skin 2 70/30 U-100 with (two) INSULIN) hyperglycem times 100 unit/mL ia daily (70-30) before injection breakfast and dinner for 30 days. aspirin 81 Yes 81mg Take 1 NPI:1 83 mg chewable 4-12 tablet by 131 8781 tablet 23:21: mouth 25 daily. aspirin 81 Yes 81mg Take 1 NPI:1 83 mg chewable 4-12 tablet by 131 8781 tablet 23:21: mouth 25 daily. metoprolol 2020- No Coronary 50mg Take 0.5 NPI:183 succinate 09-07 artery tablets by 1 166665 XL 100 mg 00:00: 04:59 disease mouth 24 hr 00 :00 involving daily for tablet [place] 30 days. coronary artery of [place] heart without angina pectoris SITagliptin 2020- No Uncontrolle 100mg Take 1 NPI:183 100 mg 09-07- d type 2 tablet by 131 8781 tablet 00:00: 04:59 diabetes mouth with 00 :00 mellitus evening with meal for hyperglycem 30 days. ia metoprolol 2020- No Coronary 50mg Take 0.5 NPI:183 succinate 09-07 artery tablets by 1 [id number] XL 100 mg 00:00: 04:59 disease mouth 24 hr 00 :00 involving daily for tablet [place] 30 days. coronary artery of [place] heart without angina pectoris SITagliptin 2020- No Uncontrolle 100mg Take 1 NPI:183 100 mg 09-07-13 d type 2 tablet by 131 8781 tablet 00:00: 04:59 diabetes mouth with 00 :00 mellitus evening with meal for hyperglycem 30 days. ia insulin NPH 2020- No Uncontrolle 90U inject 90 NPI:183 and regular - 05-06 d type 2 Units 13 [id number] human 70-30 00:00: 00:00 diabetes under the (NOVOLIN 00 :00 mellitus skin 2 70/30 U-100 with (two) INSULIN) hyperglycem times 100 unit/mL ia daily (70-30) before injection breakfast and dinner for 30 days. glipiZIDE 2020- No Uncontrolle 10mg Take 1 NPI:183 10 mg 09-07 05-06 d type 2 tablet by 1318 781 tablet 00:00: 00:00 diabetes mouth 2 00 :00 mellitus (two) with times hyperglycem daily ia before breakfast and dinner for 30 days. insulin NPH 2020- No Uncontrolle 90U inject 90 NPI:183 and regular 09-07 05-06 d type 2 Units 13 [id number] human 70-30 00:00: 00:00 diabetes under the (NOVOLIN 00 :00 mellitus skin 2 70/30 U-100 with (two) INSULIN) hyperglycem times 100 unit/mL ia daily (70-30) before injection breakfast and dinner for 30 days. glipiZIDE 2020- No Uncontrolle 10mg Take 1 NPI:183 10 mg 09-07 05-06 d type 2 tablet by 1318 781 tablet 00:00: 00:00 diabetes mouth 2 00 :00 mellitus (two) with times hyperglycem daily ia before breakfast and dinner for 30 days. METFORMIN Yes TAKE 2 NPI:18 3 500 mg 3-09 TABLETS BY [id number] tablet 00:00: MOUTH 00 TWICE DAILY WITH MEALS METFORMIN Yes TAKE 2 NPI:18 3 500 mg 3-09 TABLETS BY [id number] tablet 00:00: MOUTH 00 TWICE DAILY WITH MEALS METFORMIN Yes TAKE 2 NPI:18 3 500 mg 3-09 TABLETS BY [id number] tablet 00:00: MOUTH 00 TWICE DAILY WITH MEALS pantoprazol Yes [id number] 40mg Take 1 NPI:183 e 40 mg EC 1-11 tablet by 1318 781 tablet 00:00: mouth 00 daily. pantoprazol Yes Gastroesoph 40mg Take 1 NPI:183 e 40 mg EC 1-11 ageal tablet by 131 8781 tablet 00:00: reflux mouth 00 disease daily. pantoprazol Yes Gastroesoph 40mg Take 1 NPI:183 e 40 mg EC 1-11 ageal tablet by 131 8781 tablet 00:00: reflux mouth 00 disease daily. gabapentin 2019-05 Yes Neuropathy 800mg Take 1 NPI:183 800 mg 2-22 tablet by 9134560 tablet 00:00: mouth 3 00 (three) times daily. gabapentin 2019-05 Yes Neuropathy 800mg Take 1 NPI:183 800 mg 2-22 tablet by 0870829 tablet 00:00: mouth 3 00 (three) times daily. clopidogreL Yes H/O right 75mg Take 1 NPI:183 (PLAVIX) 75 3-20 coronary tablet by [id number] mg tablet 00:00: artery mouth 00 stent daily. placement clopidogreL Yes H/O right 75mg Take 1 NPI:183 (PLAVIX) 75 3-20 coronary tablet by 0759743 mg tablet 00:00: artery mouth 00 stent daily. placement atorvastati 2020- No Coronary 80mg Take 1 NPI:183 n 80 mg 3-20 05-06 artery tablet by 1318 781 tablet 00:00: 00:00 disease mouth at 00 :00 involving bedtime. [place] coronary artery of [place] heart without angina pectoris atorvastati 2020- No Coronary 80mg Take 1 NPI:183 n 80 mg 3-20 05-06 artery tablet by 1318 781 tablet 00:00: 00:00 disease mouth at 00 :00 involving bedtime. [place] coronary artery of [place] heart without angina pectoris nitroglycer 2018-05 Yes [id number] 1 tab SL NPI:183 in 0.4 mg 0-29 q5min up 240752 1 sublingual 00:00: to 3 doses tablet 00 PRN chest pain, then activate 911. nitroglycer 2018-05 Yes H/O right 1 tab SL NPI:183 in 0.4 mg 0-29 coronary q5min up 13 43748 sublingual 00:00: artery to 3 doses tablet 00 stent PRN chest placement pain, then activate 911. nitroglycer 2018-05 Yes H/O right 1 tab SL NPI:183 in 0.4 mg 0-29 coronary q5min up 13 36976 sublingual 00:00: artery to 3 doses tablet 00 stent PRN chest placement pain, then activate 911. Atorvastati Atorvastati Yes Dada 1 tablet NPI:174 n Calcium n Calcium Horan 0485 879 Lexapro Lexapro Yes Dada 1 tablet NPI :174 Horan 7955649 Metoprolol Metoprolol Yes Dada 1 tablet NPI:174 Tartrate Tartrate Horan with food 0 923058 Ranexa Ranexa Yes Dada 1 tablet NPI:1 74 Horan 3193565 Insulin Insulin Yes Dada 60 units NPI :174 Aspart Prot Aspart Prot Horan BID 2114283 & Aspart & Aspart Aspirin Aspirin Yes Dada 1 tablet NPI :174 Horan 0608215 Gabapentin Gabapentin Yes Dada 1 tablet NPI:174 Horan 5278162 Furosemide Furosemide Yes Dada 1 tablet NPI:174 Horan 0400571 Duloxetine Duloxetine Yes Dada 1 capsule NPI:174 HCl HCl Horan 1153641 Xanax Xanax Yes Dada 1 tablet NPI:174 Horan 6928313 Clopidogrel Clopidogrel Yes Dada 1 tablet NPI:174 Bisulfate Bisulfate Horan 0485 879 Metformin Metformin Yes Dada 1 tablet NPI:174 HCl HCl Horan with meals 2188881 Pantoprazol Pantoprazol Yes Dada 1 tablet NPI:174 e Sodium e Sodium Horan 114998 9 Klor-Con Klor-Con Yes Dada 1 tablet N PI:174 M10 M10 Horan with food 3435119 Duloxetine Duloxetine Yes Dada 1 capsule NPI:174 HCl HCl Horan 0657068 Levetiracet Levetiracet Yes Dada 1 tablet NPI:174 am am Horan [id number] [place] Yes Dada 1 tablet NPI:174 Horan as needed 4551864 Lexapro Lexapro Yes Dada 1 tablet NPI :174 Horan 3062591 Atorvastati Atorvastati Yes Dada 1 tablet NPI:174 n Calcium n Calcium Horan 0485 879 Clopidogrel Clopidogrel Yes Dada 1 tablet NPI:174 Bisulfate Bisulfate Horan 0485 879 Furosemide Furosemide Yes Dada 1 tablet NPI:174 Horan [id number] Immunizations Ordered Immunization Filled Immunization Date Status Commen ts Source Name Name SARS-COV-2 COVID-19 2021-01-17 Completed NPI:1 [id number] PFIZER VACCINE 00:00:00 Vital Signs Vital Name Observation Time Observation Value Comments Source Systolic blood pressure 2021-08-27 21:10:00 159 mm[Hg] Diastolic blood 2021-08-27 21:10:00 93 mm[Hg] NPI:1 [id number] pressure Heart rate 2021-08-27 21:10:00 93 /min NPI:1831 [id number] Oxygen saturation in 2021-08-27 21:10:00 98 /min Arterial blood by Pulse oximetry Heart rate 2020-10-01 20:20:00 60 /min NPI:1831 [id number] Systolic blood pressure 2020-10-01 20:20:00 120 mm[Hg] Diastolic blood 2020-10-01 20:20:00 80 mm[Hg] NPI:1 [id number] pressure Heart rate 2020-10-01 20:20:00 60 /min NPI:1831 048929 Systolic blood pressure 2020-10-01 20:20:00 120 mm[Hg] Diastolic blood 2020-10-01 20:20:00 80 mm[Hg] NPI:1 [id number] pressure Procedures Procedure Date / Time Performed Performing Clinician Sour e POCT GLUCOSE (AUTOMATED) 2021-08-27 21:39:00 Anatoly Flores PI:[id number] POCT HEMOGLOBIN A1C TEST 2021-08-27 21:13:00 Anatoly Flores PI:[id number] Plan of Care Planned Activity Planned Date Details Comments Source Future Scheduled 2022 Screening for malignant Test 00:00:00 neoplasm of colon (procedure) [code = 760895360] Future Scheduled 2022 Screening for malignant Test 00:00:00 neoplasm of colon (procedure) [code = 229147651] Future Scheduled 2021-09-07 Creatinine measurement N PI:[id number] Test 00:00:00 (procedure) [code = 12793307] Future Scheduled 2021-09-07 Creatinine measurement N PI:[id number] Test 00:00:00 (procedure) [code = 05492902] Future Scheduled 2021-09-05 Calculated low density N PI:[id number] Test 00:00:00 lipoprotein cholesterol level (procedure) [code = 055343492] Future Scheduled 2021-09-05 Calculated low density N PI:[id number] Test 00:00:00 lipoprotein cholesterol level (procedure) [code = 499690054] Future Scheduled 2021-05-08 Depression screening NPI :[id number] Test 00:00:00 (procedure) [code = 024207770] Future Scheduled 2021-05-08 Depression screening NPI :[id number] Test 00:00:00 (procedure) [code = 267202596] Future Scheduled 2021-03-07 Hemoglobin A1c NPI:[id number] 25688 Test 00:00:00 measurement (procedure) [code = 88986566] Future Scheduled 2021-03-07 Hemoglobin A1c NPI:[id number] 57244 Test 00:00:00 measurement (procedure) [code = 98634478] Future Scheduled 2021-01-27 INFLUENZA VACCINE NPI:18 [id number] Test 00:00:00 (Season Ended) [code = INFLUENZA VACCINE (Season Ended)] Future Scheduled 2021-01-27 INFLUENZA VACCINE NPI:18 [id number] Test 00:00:00 (Season Ended) [code = INFLUENZA VACCINE (Season Ended)] Future Scheduled 2020-10-31 Screening for malignant Test 00:00:00 neoplasm of breast (procedure) [code = 779539448] Future Scheduled 2020-10-31 Screening for malignant Test 00:00:00 neoplasm of breast (procedure) [code = 796867001] Future Scheduled 2020-09-25 Screening for malignant Test 00:00:00 neoplasm of cervix (procedure) [code = 161733380] Future Scheduled 2020-09-25 Screening for malignant Test 00:00:00 neoplasm of cervix (procedure) [code = 662990106] Future Scheduled 2020-05-10 Diabetic foot NPI:[id number] Test 00:00:00 examination (regime/therapy) [code = 667465245] Future Scheduled 2020-05-10 Diabetic foot NPI:[id number] Test 00:00:00 examination (regime/therapy) [code = 200424286] Future Scheduled 2019-09-01 Microalbumin NPI:[id number] Test 00:00:00 measurement, urine, quantitative (procedure) [code = 995224059] Future Scheduled 2019-09-01 Microalbumin NPI:[id number] Test 00:00:00 measurement, urine, quantitative (procedure) [code = 590644778] Future Scheduled 1991 DTaP,Tdap,and Td NPI:100 [id number] Test 00:00:00 Vaccines (1 - Tdap) [code = DTaP,Tdap,and Td Vaccines (1 - Tdap)] Future Scheduled 1991 DTaP,Tdap,and Td NPI:281 [id number] Test 00:00:00 Vaccines (1 - Tdap) [code = DTaP,Tdap,and Td Vaccines (1 - Tdap)] Future Scheduled 1990 Hepatitis C screening TYPE PROOF REPRODUCER I:[id number] Test 00:00:00 (procedure) [code = 020566539] Future Scheduled 1990 Hepatitis C screening TYPE PROOF REPRODUCER I:[id number] Test 00:00:00 (procedure) [code = 307497898] Future Scheduled 1988 SARS-CoV-2 (COVID-19) TYPE PROOF REPRODUCER I:[id number] Test 00:00:00 Vaccine (1) [code = SARS-CoV-2 (COVID-19) Vaccine (1)] Future Scheduled 1988 SARS-CoV-2 (COVID-19) TYPE PROOF REPRODUCER I:[id number] Test 00:00:00 Vaccine (1) [code = SARS-CoV-2 (COVID-19) Vaccine (1)] Future Scheduled 1982 Examination of retina TYPE PROOF REPRODUCER I:[id number] Test 00:00:00 (procedure) [code = 221497934] Future Scheduled 1982 Examination of retina TYPE PROOF REPRODUCER I:[id number] Test 00:00:00 (procedure) [code = 779827724] Future Scheduled 1978 PNEUMOCOCCAL 0-64 YEARS Test 00:00:00 COMBINED SERIES (1 of 1 - PPSV23) [code = PNEUMOCOCCAL 0-64 YEARS COMBINED SERIES (1 of 1 - PPSV23)] Future Scheduled 1978 PNEUMOCOCCAL 0-64 YEARS Test 00:00:00 COMBINED SERIES (1 of 1 - PPSV23) [code = PNEUMOCOCCAL 0-64 YEARS COMBINED SERIES (1 of 1 - PPSV23)] Encounters Start End Encounter Admission Attending Care Care Encounter Source Date/Time Date/Time Type Type Clinicians Facility Department ID 2021-08-27 2021-08-27 Office Mark [facility] [id number] NPI:183 16:00:00 17:02:36 Visit Anatoly [facility] [place] [id number] [place] [id number] DILLAN?BLEA [id number] OFFICE BUILDING 2020-10-01 2020-10-01 Office LucasRUST [id number] 15:08:27 16:09:31 Visit Hueymikael [facility] [id number] [place] [id number] Professio [id number] nal [address] 2018-06-27 2018-06-27 [facility] [id number] NPI:174 11:57:00 11:57:00 t Network [facility]5 [facility] YOLLEGE [facility] 2018-06-15 2018-06-15 [facility] [id number] NPI:174 16:24:00 16:24:00 [facility] 2018-06-13 2018-06-13 [facility] 22 [id number] NPI:174 13:30:00 13:30:00 [facility] 2017-12-12 2017-12-12 [facility] [id number] NPI:174 13:22:00 13:22:00 Network [facility]5 879 YOLLEGE [facility] 2017-11-20 2017-11-20 [facility] 14 [id number] NPI:174 10:30:00 10:30:[address] [address] [place] [address] 2017-11-02 2017-11-02 [facility] 14 [id number] NPI:174 15:15:00 15:15:[address] [place] [address] Results Test Description Test Time Test Comments Results Result Comments Source POCT GLUCOSE (AUTOMATED) 2021-08-27 21:41:33 Test Item Value Reference Range Interpretation Comme nts POCT GLU (test code = 4087850598) 443 mg/dL 70-110 H Lab Interpretation (test code = 16651-8) Abnormal NPI:[id number] HEMOGLOBIN A1C [id number] 21:15:00 Test Item Value Reference Range Interpretation Comments POCT HBA1C (test code = 4548-4) 14 % 4-6 A Lab Interpretation (test code = Abnormal 86259-3)
[2021-10-03 18:25] LABS: Absolute Lymphocytes (CBC) 1.8 K/uL (0.7-4.9); Hematocrit 46.4 % (36.0-45.0); MPV 8.9 fL (7.6-11.3); RBC Red Blood Cell Count 5.12 M/uL (3.86-4.86)
[2021-10-03] MEDS ORDERED: NICOTINE 21 MG/PAT TD ONE (18:34)
[2021-10-03 18:53] LABS: Albumin 3.1 g/dL (3.4-5.0); Bilirubin Direct 0.2 mg/dL (0-0.2); Bilirubin Total 0.7 mg/dL (0.2-1.0); Potassium 3.4 mmol/L (3.5-5.1); Protein, Total 7.5 g/dL (6.4-8.2); Troponin High Sensitivity 4.3 pg/mL (<58.9)
[2021-10-03 18:55] LABS: Magnesium 1.3 mg/dL (1.8-2.4)
--- NOTE | 2021-10-03 19:23 | EDPHYS ---
Physician Documentation [facility] Name: Karen Shah Age: 51 yrs Sex: Female : 1970 Arrival Date: 10/03/2021 Time: 17:[address] Private MD: Isidro Kincaid HPI: 10/03 18:03 This 51 yrs old Female presents to ER via Wheelchair with complaints of Chest chasity Pain, Back Pain. 18:03 The patient or guardian reports chest pain that is located primarily in the substernal chasity area, anterior chest wall, bilaterally. Onset: 6 hour(s) ago. The pain radiates to back. Associated signs and symptoms: Pertinent positives: dizziness, nausea, shortness of breath. The chest pain is described as a heaviness, a pressure. Modifying factors: The symptoms are alleviated by nothing. the symptoms are aggravated by nothing. Severity of pain: At its worst the pain was moderate in the emergency department the pain is unchanged. The patient has experienced similar episodes in the past, multiple times. Historical: - Allergies: 17:29 Adhesives; ss 17:29 Toradol; ss 17:29 tramadol; ss - PMHx: 17:29 angina pectoris; CAD; CVA; Diabetes - IDDM; High Cholesterol; Hypertension; Myocardial ss infarction; Seizures; - PSHx: 17:29 CABG x 2; section; right AKA; Tonsillectomy; ss - Immunization history:: Adult Immunizations up to date, Client reports receiving the 2nd dose of the Covid vaccine. - Family history:: not pertinent. - Social history:: Smoking status: Patient reports the use of cigarette tobacco products, smokes three packs cigarettes per day. Patient/guardian denies using alcohol. ROS: 18:03 Constitutional: Negative for fever, chills, and weight loss, Eyes: Negative for injury, chasity pain, redness, and discharge, ENT: Negative for injury, pain, and discharge, Neck: Negative for injury, pain, and swelling, Respiratory: Negative for shortness of breath, cough, wheezing, and pleuritic chest pain, Abdomen/GI: Negative for abdominal pain, nausea, vomiting, diarrhea, and constipation, : Negative for injury, bleeding, discharge, and swelling, MS/Extremity: Negative for injury and deformity, Skin: Negative for injury, rash, and discoloration, Neuro: Negative for headache, weakness, numbness, tingling, and seizure, Psych: Negative for depression, anxiety, suicide ideation, homicidal ideation, and hallucinations, Allergy/Immunology: Negative for hives, rash, and allergies, Endocrine: Negative for neck swelling, polydipsia, polyuria, polyphagia, and marked weight changes, Hematologic/Lymphatic: Negative for swollen nodes, abnormal bleeding, and unusual bruising. 18:03 Cardiovascular: Positive for chest pain, of the chest. 18:03 Back: Positive for pain at rest, of the thoracic area. Exam: 18:03 Constitutional: This is a well developed, well nourished patient who is awake, alert, chasity and in no acute distress. Head/Face: Normocephalic, atraumatic. Eyes: Pupils equal round and reactive to light, extra-ocular motions intact. Lids and lashes normal. Conjunctiva and sclera are non-icteric and not injected. Cornea within normal limits. Periorbital areas with no swelling, redness, or edema. ENT: Nares patent. No nasal discharge, no septal abnormalities noted. Tympanic membranes are normal and external auditory canals are clear. Oropharynx with no redness, swelling, or masses, exudates, or evidence of obstruction, uvula midline. Mucous membranes moist. Neck: Trachea midline, no thyromegaly or masses palpated, and no cervical lymphadenopathy. Supple, full range of motion without nuchal rigidity, or vertebral point tenderness. No Meningismus. Chest/axilla: Normal chest wall appearance and motion. Nontender with no deformity. No lesions are appreciated. Respiratory: Lungs have equal breath sounds bilaterally, clear to auscultation and percussion. No rales, rhonchi or wheezes noted. No increased work of breathing, no retractions or nasal flaring. Abdomen/GI: Soft, non-tender, with normal bowel sounds. No distension or tympany. No guarding or rebound. No evidence of tenderness throughout. Back: No spinal tenderness. No costovertebral tenderness. Full range of motion. Skin: Warm, dry with normal turgor. Normal color with no rashes, no lesions, and no evidence of cellulitis. MS/ Extremity: Pulses equal, no cyanosis. Neurovascular intact. Full, normal range of motion. Neuro: Awake and alert, GCS 15, oriented to person, place, time, and situation. Cranial nerves II-XII grossly intact. Motor strength 5/5 in all extremities. Sensory grossly intact. Cerebellar exam normal. Normal gait. 18:03 Cardiovascular: Rate: tachycardic, Rhythm: regular, Pulses: Pulses are 4+ in right radial artery, right brachial artery, right femoral artery, left radial artery, left brachial artery, left femoral artery, left popliteal artery, left carotid pulse and right carotid pulse. 18:03 ECG was reviewed by the Attending Physician. Vital Signs: 17:35 BP 161 / 107; Pulse 127; Resp 20; Temp 97.0; Pulse Ox 98% on R/A; Weight 58.97 kg; ph Height 5 ft. 4 in. (162.56 cm); 18:00 BP 160 / 88; Pulse 97; Resp 18; Pulse Ox 97% on R/A; ld1 19:03 BP 160 / 88; Pulse 96; Resp 18; Pulse Ox 98% on R/A; ld1 17:35 Body Mass Index 22.31 (58.97 kg, 162.56 cm) ph Procedures: 18:16 Peripheral line: by aseptic technique a peripheral line was placed in the left external chasity jugular vein. MDM: 17:21 Patient medically screened. chasity 18:13 Differential diagnosis: abnormal EKG, acute myocardial infarction, acute pericarditis, chasity coronary artery disease chest wall pain, esophagitis, herpes zoster, hiatal hernia, pancreatitis, peptic ulcer disease, pleurisy, pneumonia, pulmonary embolus, stable angina, thoracic aortic disection, unstable angina. HEART Score: History: Moderately Suspicious (1), ECG: Non specific repolarization disturbance / LBTB / PM (1), Age: > 45 and < 65 years (1), Risk Factors: > or = 3 Risk factors for atherosclerotic disease (2), [Hypercholesterolemia] [Hypertension] [DM] [Active Smoker] [+ Family HX] Troponin: < or = 1 x Normal Limit (0). The patient was not given aspirin in the Emergency Department. Not indicated due to patient's past medical history. The patient's deep vein thrombosis risk score was calculated as follows: Total Score: 0. This patient was found to be at low risk for a deep vein thrombosis by using the Well's assessment criteria. The patient's pulmonary embolism risk score was calculated as follows: the patients heart rate is greater than 100 beats per minute (1.5 Pts) Total Score: 0-2 points. This patient was found to be at low risk for a pulmonary embolism by using the Well's assessment criteria. MASSIMO Risk Score: 1 - Three or more CAD risk factors, 1- Known CAD, 1 - ASA use in past 7 days, 1 - Recent [<24hrs] Severe Angina, TOTAL SCORE = 4. Data reviewed: vital signs, nurses notes, lab test result(s), EKG, radiologic studies, CT scan, plain films. Data interpreted: hospital monitor: rate is 127 beats/min, rhythm is regular, Pulse oximetry: on room air is 98 %. Test interpretation: by ED physician or midlevel provider: ECG, plain radiologic studies. Counseling: I had a detailed discussion with the patient and/or guardian regarding: the historical points, exam findings, and any diagnostic results supporting the discharge/admit diagnosis, lab results, radiology results, the need for further work-up and treatment in the hospital. 10/03 18:03 Order name: Basic Metabolic Panel; Complete Time: 20:27 [facility] 10/03 18:03 Order name: CBC with Diff; Complete Time: 18:51 [facility] 10/03 18:03 Order name: LFT's; Complete Time: 20:27 [facility] 10/03 18:03 Order name: Magnesium; Complete Time: 20:27 [facility] 10/03 18:03 Order name: NT PRO-BNP; Complete Time: 20:27 [facility] 10/03 18:03 Order name: PT-INR; Complete Time: 18:51 [facility] 10/03 18:03 Order name: Troponin HS; Complete Time: 20:27 [facility] 10/03 18:03 Order name: Lipid Profile; Complete Time: 20:27 [facility] 10/03 18:03 Order name: Urine Culture [facility] 10/03 19:48 Order name: COVID-19 SARS RT PCR (Document "Date of Onset" if Symptomatic); Complete ld1 Time: 21:10 10/03 20:02 Order name: Lipase; Complete Time: 20:27 [facility] 10/03 21:08 Order name: Urine Dipstick-Ancillary; Complete Time: 21:10 [facility] 10/03 23:32 Order name: Glucose, Ancillary Testing [facility] 10/03 18:03 Order name: XRAY Chest (1 view); Complete Time: 19:40 [facility] 10/03 18:03 Order name: CT Aorta for Dissection; Complete Time: 19:40 [facility] 10/04 00:51 Order name: Troponin High Sensitivity; Complete Time: 01:42 EDMS 10/04 03:21 Order name: CBC with Automated Diff EDMS 10/04 03:35 Order name: Troponin High Sensitivity EDMS 10/04 03:41 Order name: Hemoglobin A1c EDMS 10/04 03:41 Order name: Comprehensive Metabolic Panel EDMS 10/04 03:41 Order name: Phosphorus EDMS 10/04 03:41 Order name: Magnesium EDMS 10/04 08:17 Order name: Glucose, Ancillary Testing EDMS 10/04 11:38 Order name: Glucose, Ancillary Testing EDMS 10/03 18:03 Order name: EKG; Complete Time: 18:04 [facility] 10/03 18:03 Order name: Cardiac monitoring; Complete Time: 18:25 [facility] 10/03 18:03 Order name: EKG - Nurse/Tech; Complete Time: 18:26 [facility] 10/03 18:03 Order name: IV Saline Lock; Complete Time: 18:26 [facility] 10/03 18:03 Order name: Labs collected and sent; Complete Time: 18:26 [facility] 10/03 18:03 Order name: O2 Per Protocol; Complete Time: 18:26 [facility] 10/03 18:03 Order name: O2 Sat Monitoring; Complete Time: 18:26 [facility] 10/03 18:03 Order name: Urine Dipstick-Ancillary (obtain specimen); Complete Time: 21:11 [facility] 10/03 19:29 Order name: Misc. Order: please get ua; Complete Time: 21:11 [facility] EC:03 Rate is 123 beats/min. Rhythm is regular. QRS [place] is Normal. RI interval is normal. [facility] QRS interval is normal. QT interval is normal. No Q waves. T waves are Normal. No ST changes noted. Clinical impression: Sinus tachycardia. Interpreted by me. Reviewed by me. Administered Medications: 18:24 Drug: Lopressor (metoprolol TARTRATE) 50 mg Route: PO; ld1 18:24 Drug: Lopressor (metoprolol) 5 mg Route: IVP; Site: left jugular; ld1 18:24 Drug: hydrALAZINE 10 mg Route: IVP; Site: left jugular; ld1 18:25 Drug: morphine 4 mg Route: IVP; Site: left jugular; ld1 18:25 Drug: Zofran (Ondansetron) 4 mg Route: IVP; Site: left jugular; ld1 18:25 Drug: Pepcid (famotidine) 20 mg Route: IVP; Site: left jugular; ld1 18:25 Drug: NS 0.9% 250 ml Route: IV; Rate: bolus; Site: left jugular; ld1 18:25 Drug: NS 0.9% 1000 ml Route: IV; Rate: 125 ml/hr; Site: left jugular; ld1 18:40 Drug: Nicoderm CQ Patch 21 mg/24 hr 21 mg Route: Transdermal; Site: affected area; ld1 18:41 Drug: Lopressor (metoprolol) 5 mg Route: IVP; Site: left jugular; ld1 18:47 Not Given (Not in pyxiss): Isosorbide Mononitrate Extended Release 24 hour Tablet 30 mg ld1 PO once 19:45 Drug: Aspirin 81 mg Route: PO; ld1 19:45 Drug: PlaVIX (clopidogrel) 75 mg Route: PO; ld1 19:45 Drug: Rocephin (cefTRIAXone) 1 grams Route: IV; Rate: per protocol; Site: left jugular; ld1 19:46 Drug: Insulin Regular Human 6 units {Co-Signature: kd3 (Gretta Thao RN).} Route: IVP; ld1 Site: left jugular; 19:46 Drug: Potassium Effervescent Tablet 25 mEq Route: PO; ld1 19:47 Drug: Magnesium Sulfate 2 grams Route: IVPB; Infused Over: 2 hrs; Site: left jugular; ld1 20:32 Drug: LanTUS (insulin glargine) 25 units Route: Sub-Q; Site: abdomen; ld1 20:32 Drug: Lovenox (enoxaparin) 1 mg/kg Route: Sub-Q; Site: abdomen; ld1 Disposition Summary: 10/03/21 19:22 Hospitalization Ordered Hospitalization Status: Observation chasity Provider: Jeff Bosch cha Condition: Fair chasity Problem: new chasity Symptoms: have improved chasity Bed/Room Type: Standard chasity Location: Telemetry/MedSurg (Inpatient)(10/04/21 12:31) dw Room Assignment: 209(10/04/21 12:31) dw Diagnosis - Chest pain, unspecified chasity - Essential (primary) hypertension chasity - Type 1 diabetes mellitus with hyperglycemia chasity - Tobacco abuse counseling chasity - Tobacco use chasity - Hypomagnesemia chasity - Peripheral vascular disease, unspecified chasity - UTI/ Urinary tract infection, site not specified chasity Forms: - Medication Reconciliation Form chasity - SBAR form chasity Signatures: Dispatcher [employer] EDMS Alondra Amato RN RN mw Woody, Diana, RN RN dw Anderson, Corey, MD MD cha Smirch, Shelby, RN RN Meaghan Dean RN RN ld1 Onelia Barboza PA PA sb3 Gretta Thao RN kd3 Corrections: (The following items were deleted from the chart) 20:02 19:05 LIPASE+C.LAB.BRZ ordered. EDMS EDMS 20:38 19:22 Telemetry/MedSurg (observation) [facility] 20:38 19:22 [facility] 10/04 12:31 10/03 20:38 [facility] ER HOLD [facility] 10/04 12:31 10/03 20:38 ERHOLD- [facility]
--- NOTE | 2021-10-03 19:23 | ER ---
Nurse's Notes [facility] Name: Karen Shah Age: 51 yrs Sex: Female : 1970 Arrival Date: 10/03/2021 Time: 17:[address] Private MD: Diagnosis: Chest pain, unspecified;Essential (primary) hypertension;Type 1 diabetes mellitus with hyperglycemia;Tobacco abuse counseling;Tobacco use;Hypomagnesemia;Peripheral vascular disease, unspecified;UTI/ Urinary tract infection, site not specified Presentation: 10/03 17:35 Chief complaint: Patient states: Chest pain radiating to back and shoulders that ph started this morning, N/D, pt tearful and anxious in triage, states, "This is how I felt when I had my first heart attack.". Coronavirus screen: Vaccine status: Patient reports receiving the 2nd dose of the covid vaccine. Ebola Screen: No symptoms or risks identified at this time. Initial Sepsis Screen: Does the patient meet any 2 criteria? No. Patient's initial sepsis screen is negative. Does the patient have a suspected source of infection? No. Patient's initial sepsis screen is negative. Risk Assessment: Do you want to hurt yourself or someone else? Patient reports no desire to harm self or others. Onset of symptoms was October 03, 2021. 17:35 Method Of Arrival: Wheelchair ph 17:35 Acuity: ARIEL 2 ph Triage Assessment: 17:38 Pain: Complains of pain in chest Pain radiates to back. Neuro: No deficits noted. ph Cardiovascular: Reports chest pain, nausea, Capillary refill < 3 seconds in bilateral fingers Patient's skin is warm and dry. Respiratory: No deficits noted. Historical: - Allergies: 17:29 Adhesives; ss 17:29 Toradol; ss 17:29 tramadol; ss - PMHx: 17:29 angina pectoris; CAD; CVA; Diabetes - IDDM; High Cholesterol; Hypertension; Myocardial ss infarction; Seizures; - PSHx: 17:29 CABG x 2; section; right AKA; Tonsillectomy; ss - Immunization history:: Adult Immunizations up to date, Client reports receiving the 2nd dose of the Covid vaccine. - Family history:: not pertinent. - Social history:: Smoking status: Patient reports the use of cigarette tobacco products, smokes three packs cigarettes per day. Patient/guardian denies using alcohol. Screenin:00 Abuse screen: Denies threats or abuse. Denies injuries from another. Nutritional ld1 screening: No deficits noted. Tuberculosis screening: No symptoms or risk factors identified. Fall Risk None identified. Assessment: 18:00 General: Appears in no apparent distress. comfortable, Behavior is calm, cooperative, ld1 appropriate for age. Pain: Complains of pain in chest Pain radiates to left sternocleidomastoid Pain currently is 7 out of 10 on a pain scale. Quality of pain is described as throbbing, Pain began gradually. 18:00 Neuro: Level of Consciousness is awake, alert, obeys commands, Oriented to person, ld1 place, time, situation. Cardiovascular: Capillary refill < 3 seconds Patient's skin is warm and dry. Rhythm is sinus tachycardia. Respiratory: Airway is patent Respiratory effort is even, unlabored. GI: Abdomen is flat, non-distended. : No signs and/or symptoms were reported regarding the genitourinary system. EENT: No signs and/or symptoms were reported regarding the EENT system. Derm: No signs and/or symptoms reported regarding the dermatologic system. Musculoskeletal: No signs and/or symptoms reported regarding the musculoskeletal system. Vital Signs: 17:35 BP 161 / 107; Pulse 127; Resp 20; Temp 97.0; Pulse Ox 98% on R/A; Weight 58.97 kg; ph Height 5 ft. 4 in. (162.56 cm); 18:00 BP 160 / 88; Pulse 97; Resp 18; Pulse Ox 97% on R/A; ld1 19:03 BP 160 / 88; Pulse 96; Resp 18; Pulse Ox 98% on R/A; ld1 17:35 Body Mass Index 22.31 (58.97 kg, 162.56 cm) ph ED Course: 17:08 Patient arrived in ED. ds1 17:21 Isidro Villa MD is Attending Physician. chasity 17:31 Meaghan Dean, CHIDI is Primary Nurse. ld1 17:38 Triage completed. ph 17:38 Arm band placed on Patient placed in an exam room, on a stretcher, on storekeeper steward, ph on pulse oximetry. 18:00 Patient has correct armband on for positive identification. Placed in gown. Bed in low ld1 position. Call light in reach. Side rails up X2. patternmaker hand on. Pulse ox on. NIBP on. Door closed. Noise minimized. Warm blanket given. 18:00 No provider procedures requiring assistance completed. Inserted saline lock: 20 gauge ld1 in left EJ, using aseptic technique. Patient maintains SpO2 saturation greater than 95% on room air. 18:59 XRAY Chest (1 view) In Process Unspecified. EDMS 19:19 CT Aorta for Dissection In Process Unspecified. EDMS 19:20 Primary Nurse role handed off by Meaghan Dean, CHIDI mw2 19:20 Jeff Bosch is Hospitalizing Provider. [facility] 19:29 Meaghan Dean RN is Primary Nurse. ld1 19:54 COVID-19 SARS RT PCR (Document "Date of Onset" if Symptomatic) Sent. ld1 20:15 COVID-19 SARS RT PCR (Document "Date of Onset" if Symptomatic) Sent. ld1 21:12 Urine Culture Sent. ld1 Administered Medications: 18:24 Drug: Lopressor (metoprolol TARTRATE) 50 mg Route: PO; ld1 18:24 Drug: Lopressor (metoprolol) 5 mg Route: IVP; Site: left jugular; ld1 18:24 Drug: hydrALAZINE 10 mg Route: IVP; Site: left jugular; ld1 18:25 Drug: morphine 4 mg Route: IVP; Site: left jugular; ld1 18:25 Drug: Zofran (Ondansetron) 4 mg Route: IVP; Site: left jugular; ld1 18:25 Drug: Pepcid (famotidine) 20 mg Route: IVP; Site: left jugular; ld1 18:25 Drug: NS 0.9% 250 ml Route: IV; Rate: bolus; Site: left jugular; ld1 18:25 Drug: NS 0.9% 1000 ml Route: IV; Rate: 125 ml/hr; Site: left jugular; ld1 18:40 Drug: Nicoderm CQ Patch 21 mg/24 hr 21 mg Route: Transdermal; Site: affected area; ld1 18:41 Drug: Lopressor (metoprolol) 5 mg Route: IVP; Site: left jugular; ld1 18:47 Not Given (Not in pyxiss): Isosorbide Mononitrate Extended Release 24 hour Tablet 30 mg ld1 PO once 19:45 Drug: Aspirin 81 mg Route: PO; ld1 19:45 Drug: PlaVIX (clopidogrel) 75 mg Route: PO; ld1 19:45 Drug: Rocephin (cefTRIAXone) 1 grams Route: IV; Rate: per protocol; Site: left jugular; ld1 19:46 Drug: Insulin Regular Human 6 units {Co-Signature: kd3 (Gretta Thao RN).} Route: IVP; ld1 Site: left jugular; 19:46 Drug: Potassium Effervescent Tablet 25 mEq Route: PO; ld1 19:47 Drug: Magnesium Sulfate 2 grams Route: IVPB; Infused Over: 2 hrs; Site: left jugular; ld1 20:32 Drug: LanTUS (insulin glargine) 25 units Route: Sub-Q; Site: abdomen; ld1 20:32 Drug: Lovenox (enoxaparin) 1 mg/kg Route: Sub-Q; Site: abdomen; ld1 Outcome: 19:22 Decision to Hospitalize by Provider. [facility] 10/04 14:16 Patient left the ED. iw Signatures: Dispatcher [employer] Isidro Good MD MD cha Sanford, Demi ds1 Dali Nieves RN RN Carine Osman RN RN ss Hall, Patricia, RN RN Saman Webber 2 Meaghan Dean RN RN ld1 Gretta Thao RN kd3
--- NOTE | 2021-10-03 19:35 | RAD REPORT ---
EXAM DESCRIPTION: CT - Angio Aorta For Dissection - 10/03/2021 7:17 pm CLINICAL HISTORY: . Chest and abd pain COMPARISON: August 2021 TECHNIQUE: Computed tomography angiography of the chest, abdomen pelvis were obtained. 100 cc Isovue 370 was administered intravenously. Coronal and sagittal reconstruction were performed. MIP 3D reconstruction was performed All CT scans are performed using dose optimization technique as appropriate and may include automated exposure control or mA/KV adjustment according to patient size. FINDINGS: An aortic dissection is not seen. An aortic aneurysm is not displayed. The celiac, SMA and NESSA are patent . Stents have been placed into the right common and right external iliac arteries. Mild to moderate thrombus within the distal abdominal aorta A lung consolidation is not present. A pericardial effusion is not seen. A pleural effusion is not no anthony. The liver,spleen, pancreas,adrenals and kidneys demonstrate no significant abnormality. There no evidence diverticulitis. Bladder wall appears mildly thickened IMPRESSION: Negative for an aortic dissection. Possible mild cystitis
[2021-10-03] MEDS ORDERED: Magnesium Sulfate 2gm IVPB 2 G/50 ML BAG IV ONE (19:37)
[2021-10-03] MEDS ORDERED: CLOPIDOGREL 75 MG TABLET ONE (19:39)
[2021-10-03] MEDS ORDERED: ASPIRIN 81 MG CHEWABLE TABLET ONE (19:39)
--- NOTE | 2021-10-03 19:39 | RAD REPORT ---
EXAM DESCRIPTION: Erika Single View10/03/2021 6:57 pm CLINICAL HISTORY: Chest pain COMPARISON: none FINDINGS: The lungs appear clear of acute infiltrate. The heart is normal size. Postsurgical change s involve the chest IMPRESSION: No acute abnormalities displayed
[2021-10-03] MEDS ORDERED: POTASSIUM 25 MEQ EFFERV TAB ONE (19:40)
[2021-10-03] MEDS ORDERED: CEFTRIAXONE 1000 MG/VIAL ONE (19:40)
[2021-10-03] MEDS ORDERED: INSULIN -REGULAR HUMAN 50 UNIT/0.5 ML ML ONE ×2 (19:40→23:32)
[2021-10-03] MEDS ORDERED: ENOXAPARIN 60 MG/0.6 ML SQ ONE (20:25)
[2021-10-03] MEDS ORDERED: INSULIN GLARGINE 100 UNIT/ML SQ ONE (20:28)
--- NOTE | 2021-10-03 20:33 | P.HP ---
Certification for Inpatient Patient admitted to: Observation With expected LOS: <2 Midnights Patient will require the following post-hospital care: None Practitioner: I am a practitioner with admitting privileges, knowledge of patient current condition, hospital course, and medical plan of care. Services: Services provided to patient in accordance with Admission requirements found in Title 42 Section 412.3 of the Code of Federal Regulations Patient History Date of Service: 10/03/21 Reason for admission: Chest Pain History of Present Illness: Patient is a 51-year-old female with past medical history of IDDM, HTN, HLD, CVA, noncompliance, and extensive cardiac history who presented to the ED with complaints of bilateral chest pain (heaviness/pressure sensation) radiating to her back and shoulders that started this morning. She reports that it feels very similar to when she had an LA. EKG negative for ST changes. Work-up revealed UTI, sodium 131, potassium 3.4, glucose 384, WBC 11.1, hemoglobin 15.8, magnesium 1.3, BNP 1619, elevated cholesterol, troponin WNL, CT angio negative for aortic dissection. She was given hydralazine, Lopressor, Rocephin, Plavix, aspirin, mag, therapeutic Lovenox in the ED. ED provider wishes to admit patient for further observation and treatment. Allergies tramadol Allergy (Mild, Verified 12/29/18 21:16) Hives/Rash adhesive tape Allergy (Verified 12/30/18 02:54) Hives ketorolac [From Toradol] Allergy (Verified 12/29/18 21:16) Hives/Rash Home medications list reviewed: Yes Home Medications: Aspirin 81 mg PO DAILY #30 tab.chew 05/16/17 Atorvastatin Calcium [Lipitor] 40 mg PO BEDTIME #30 tab 05/16/17 Clopidogrel Bisulfate [Plavix] 75 mg PO DAILY #30 tablet 05/16/17 Duloxetine HCl 30 mg PO DAILY #30 capsule. 05/16/17 Pantoprazole [Protonix Tab*] 40 mg PO DAILY #30 tab 05/17/17 Isosorbide Mononitrate [Isosorbide Mononitrate ER] 30 mg PO DAILY 12/31/18 Docosahexanoic AC/Epa [Fish Oil 1,000 MG*] 1 cap PO BID #60 cap 05/06/20 Folic Acid 1 mg PO DAILY #90 tablet 05/06/20 Gabapentin 800 mg PO TID 07/18/20 Metoprolol Succinate 100 mg PO DAILY 07/18/20 Alcohol Antiseptic Pads [Alcohol Swabs] 1 each TP TID #100 med..pad 07/21/20 Blood Sugar Diagnostic [Glucose Test Strip] 1 each MC TID #100 strip 07/21/20 Blood-Glucose Meter [Contour] 1 each MC TID #1 kit 07/21/20 Calcium Carbonate [Oscal*] 1,000 mg PO BID #60 tab 07/21/20 Lactobacillus Acidophilus [Acidophilus] 1 each PO TID #90 tablet 07/21/20 Lancets [Lancets Thin] 1 each MC TID #100 each 07/21/20 Ranolazine [Ranolazine ER] 500 mg PO BID #60 tab.er.12h 07/21/20 Syring-Needl,Disp,Insul,0.3 ml [Insulin Syringe] 1 each MC TID #100 disp.syrin 07/21/20 levETIRAcetam [Keppra*] 500 mg PO BID #60 tab 07/21/20 Insulin 70/30 NPH/Reg Human [Novolin 70/30*] 50 unit SQ BIDAC #1 vial 05/05/21 Lisinopril [Zestril] 5 mg PO DAILY #30 tablet 05/05/21 Metformin HCl [Glucophage*] 1,000 mg PO BIDWM #120 tab 05/05/21 - Past Medical/Surgical History Diabetic: Yes -: Coronary artery disease -: Type 2 Diabtes- Insulin Dependent -: Chronic systolic congestive heart failure -: Hypertension -: CVA -: PAD -: Hypertension -: GERD -: triple bypass (heart) 2012 -: 2 C-Sections -: double bypass 2015 -: 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 -: Below knee amputation 2014 -: Above knee amputation 2014 -: Eye surgery for detached retina 2015 Psychosocial/ Personal History: Patient lives at home with her family - Family History Father -: Heart disease, Hypertension, Diabetes Notes: Pt's father of an LA Mother -: Other (see notes) Notes: hyperlipidemia Brother -: Diabetes Notes: Brother recently diagnosed in 2016 Sister -: Hypertension - Social History Smoking Status: Current every day smoker Smoking therapy provided: Yes Alcohol use: Yes CD- Drugs: No Caffeine use: No Place of Residence: Home Review of Systems General: Weakness Respiratory: Shortness of Breath Cardiovascular: Chest Pain, As per HPI Gastrointestinal: Nausea Physical Examination - Physical Exam General: Alert, In no apparent distress HEENT: Atraumatic, PERRLA, Mucous membr. moist/pink, EOMI, Sclerae nonicteric Neck: Supple, 2+ carotid pulse no bruit, No LAD, Without JVD or thyroid abnormality Respiratory: Clear to auscultation bilaterally, Normal air movement Cardiovascular: Regular rate/rhythm, Normal S1 S2 Gastrointestinal: Normal bowel sounds, No tenderness Musculoskeletal: No tenderness Integumentary: No rashes Neurological: Normal speech, Normal strength at 5/5 x4 extr, Normal tone, Normal affect - Studies Laboratory Data (last 24 hrs) 10/03/21 19:05: Lipase Cancelled 10/03/21 18:00: PT 11.0, INR 1.00 10/03/21 18:00: WBC 11.1 H, Hgb 15.8 H, Hct 46.4 H, Plt Count 408 H 10/03/21 18:00: Sodium 131 L, Potassium 3.4 L, BUN 15, Creatinine 0.97, Glucose 384 H, Magnesium 1.3 L*, Total Bilirubin 0.7, AST 22, ALT 20, Alkaline Phosphatase 166 H, Triglycerides 232 H, Cholesterol 224 H, HDL Cholesterol 34 L, Cholesterol/HDL Ratio 6.59, Lipase 72 L Assessment and Plan - Problems (Diagnosis) (1) Chest pain, rule out acute myocardial infarction Current Visit: Yes Status: Acute (2) Diabetes mellitus Current Visit: Yes Status: Chronic Qualifiers: Diabetes mellitus type: type 2 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 coli UTI Current Visit: Yes Status: Acute (4) History of peripheral arterial disease Current Visit: Yes Status: Chronic (5) Coronary artery disease Current Visit: Yes Status: Chronic Qualifiers: Coronary Disease-Associated Artery/Lesion type: unspecified vessel or lesion type [place] vs. transplanted heart: [place] heart Associated angina: with unstable angina Qualified Code(s): I25.110 - Atherosclerotic heart disease of [place] coronary artery with unstable angina pectoris (6) Hx of CABG Current Visit: No Status: Chronic (7) S/P AKA (above knee amputation) unilateral Current Visit: No Status: Chronic (8) Hypertension Current Visit: Yes Status: Chronic Qualifiers: Hypertension type: primary hypertension Qualified Code(s): I10 - Essential (primary) hypertension (9) Hyperlipidemia Current Visit: Yes Status: Chronic Qualifiers: Hyperlipidemia type: mixed hyperlipidemia Qualified Code(s): E78.2 - Mixed hyperlipidemia (10) Tobacco abuse Current Visit: Yes Status: Chronic (11) CHF (congestive heart failure) Current Visit: Yes Status: Chronic Qualifiers: Heart failure type: systolic Heart failure chronicity: chronic Qualified Code(s): I50.22 - Chronic systolic (congestive) heart failure - Plan -Patient admitted for observation and will be monitored on telemetry. EKG negative for ST changes -Initial troponin WNL. check every 6 hours x2. Cardiology consulted. Echo ordered for the morning -Continue atorvastatin, daily aspirin, antihypertensives. Patient is known to be noncompliant with her medications -Blood sugar elevated at 384. Moderate sliding scale insulin with ACHS Accu- Cheks and diabetic diet. A1c ordered for the morning -Patient was also found to have UTI (history of ecoli UTIs). Started on Rocephin in ED. Continue -Magnesium and potassium decreased. Given magnesium replacement in the ED. Magnesium, potassium, phosphorus replacement protocol ordered -Reconcile and continue home medications -Lovenox for VTE prophylaxis Discharge Plan: Home Plan to discharge in: 24 Hours - Advance Directives Does patient have a Living Will: No Does patient have a Durable POA for Healthcare: No - Code Status/Comfort Care Code Status Assessed: Yes (Full) Critical Care: No Time Spent Managing Pts Care (In Minutes): 70
[2021-10-03 21:07] LABS: Urine Blood Trace-intact (Negative); Urine Glucose 3+ (Negative); Urine Protein 2+ (Negative); Urine pH 5.5 (5.0-7.0)
[2021-10-03] MEDS ORDERED: HYDRALAZINE HCL 20 MG/ML VIAL IV PRN (22:23)
[2021-10-03] MEDS: ATORVASTATIN 40 MG TAB PO SCH (22:23)
[2021-10-03] MEDS: INSULIN -REGULAR HUMAN 50 UNIT/0.5 ML ML SQ SCH (22:23)
[2021-10-03] MEDS ORDERED: ACETAMINOPHEN 500 MG TAB PO PRN (22:23)
[2021-10-03] MEDS ORDERED: MORPHINE 2 MG/ML SYR ONE (23:31)
[2021-10-03] MEDS ORDERED: ATORVASTATIN 20 MG TAB ONE (23:32)
[2021-10-03] MEDS ORDERED: ONDANSETRON 4 MG/2 ML VIAL ONE (23:32)
[2021-10-03] MEDS: MORPHINE 2 MG/ML SYR IV PRN (23:35)
[2021-10-03] MEDS: ONDANSETRON 4 MG/2 ML VIAL IV PRN (23:35)
[2021-10-04 02:59] VITALS: BMI 22.2
[2021-10-04 03:19] LABS: Absolute Lymphocytes (CBC) 2.9 K/uL (0.7-4.9); Hematocrit 40.5 % (36.0-45.0); Lymphocytes % 34.2 % (15.3-44.8); MPV 8.6 fL (7.6-11.3)
[2021-10-04 03:30] LABS: Albumin 2.4 g/dL (3.4-5.0); Bilirubin Total 0.2 mg/dL (0.2-1.0); Magnesium 1.7 mg/dL (1.8-2.4); Phosphorus 2.2 mg/dL (2.5-4.9); Protein, Total 5.9 g/dL (6.4-8.2)
[2021-10-04] MEDS: INSULIN -REGULAR HUMAN 50 UNIT/0.5 ML ML SQ SCH ×4 (07:30→21:48)
--- NOTE | 2021-10-04 08:57 | EKG ---
Test Date: 2021-10-03 Test Time: 17:36:53 Roofing Applicator: MB MEASUREMENT RESULTS: Intervals: Rate: 123 GA: 112 QRSD: 80 QT: 422 QTc: 604 [place]: P: 99 GA: 112 QRS: 95 T: 70 INTERPRETIVE STATEMENTS: Suspect arm lead reversal, interpretation assumes no reversal Sinus tachycardia Rightward axis Septal infarct, age undetermined Abnormal ECG Compared to ECG 09/07/2021 01:20:52 Right-axis deviation now present Sinus rhythm no longer present Left ventricular hypertrophy no longer present Myocardial infarct finding still present Electronically Signed On 10-04-21 08:56:13 CDT by Griffin Mejia
[2021-10-04] MEDS: NICOTINE 21 MG/PAT TD SCH (09:00)
[2021-10-04] MEDS: ENOXAPARIN 40 MG/0.4 ML SQ SCH (09:00)
[2021-10-04] MEDS: ASPIRIN EC 81 MG TAB PO SCH (09:00)
[2021-10-04] MEDS ORDERED: ENOXAPARIN 40 MG/0.4 ML SQ ONE (09:46)
[2021-10-04] MEDS ORDERED: ASPIRIN EC 81 MG TAB PO ONE (09:46)
[2021-10-04] MEDS ORDERED: NICOTINE 21 MG/PAT TD ONE (09:46)
[2021-10-04] MEDS ORDERED: MORPHINE 2 MG/ML SYR ONE (11:25)
[2021-10-04] MEDS ORDERED: ONDANSETRON 4 MG/2 ML VIAL ONE (11:25)
[2021-10-04] MEDS: MORPHINE 2 MG/ML SYR IV PRN ×3 (11:29→21:32)
[2021-10-04] MEDS: ONDANSETRON 4 MG/2 ML VIAL IV PRN ×2 (11:29→21:32)
--- NOTE | 2021-10-04 13:33 | ECHO ---
HEIGHT: 5 ft 4 in WEIGHT: 129 lb 9.6 oz DATE OF STUDY: 10/04/[address]: Onelia Barboza 2-DIMENSIONAL: YES M.MODE: YES DOPPLER: YES COLOR FLOW: YES TDS: YES PORTABLE: DEFINITY: BUBBLE STUDY: DIAGNOSIS: CHEST PAIN CARDIAC HISTORY: CATHERIZATION: SURGERY: YES PROSTHETIC VALVE: PACEMAKER: MEASUREMENTS (cm) DIASTOLIC (NORMALS) SYSTOLIC (NORMALS) IVSd 1.0 (0.6-1.2) LA Diam 2.8 (1.9-4.0) LVEF 50-55% LVIDd 3.9 (3.5-5.7) LVIDs 2.7 (2.0-3.5) %FS 31% LVPWd 1.2 (0.6-1.2) Ao Diam 2.6 (2.0-3.7) 2 DIMENSIONAL ASSESSMENT: RIGHT ATRIUM: NORMAL LEFT ATRIUM: NORMAL RIGHT VENTRICLE: NORMAL LEFT VENTRICLE: NORMAL TRICUSPID VALVE: NORMAL MITRAL VALVE: NORMAL PULMONIC VALVE: NORMAL AORTIC VALVE: NORMAL PERICARDIAL EFFUSION: NONE AORTIC ROOT: NORMAL LEFT VENTRICULAR WALL MOTION: NORMAL DOPPLER/COLOR FLOW: NORMAL COMMENTS: LOW NORMAL LEFT VENTRICULAR EJECTION FRACTION AT 50-55%. MILD DIAPHASIC DYSFUNCTION. TECHNOLOGIST: DARIN TRAYLOR
--- NOTE | 2021-10-04 14:10 | P.PN ---
Subjective Date of Service: 10/04/21 Chief Complaint: Chest Pain Patient complaining of intermittent chest pain and pressure. Vitals have been stable. Physical Examination - Vital Signs Temperature: 97.9 F Blood Pressure: 133/70 Pulse: 75 Respirations: 16 Pulse Ox (%): 100 - Physical Exam General: Alert, In no apparent distress, Oriented x3 HEENT: Mucous membr. moist/pink Neck: Supple, JVD not distended Respiratory: Clear to auscultation bilaterally, Normal air movement Cardiovascular: No edema, Regular rate/rhythm, Normal S1 S2 Gastrointestinal: Normal bowel sounds, Soft and benign, Non-distended, No tenderness Musculoskeletal: No swelling, No tenderness Integumentary: No rashes, No cyanosis Neurological: Normal speech, Normal strength at 5/5 x4 extr - Studies Laboratory Data (last 24 hrs) 10/04/21 03:03: Sodium 140, Potassium 3.0 L, BUN 13, Creatinine 0.81, Glucose 195 H, Phosphorus 2.2 L, Magnesium 1.7 L, Total Bilirubin 0.2, AST 21, ALT 19, Alkaline Phosphatase 127 H 10/04/21 03:03: WBC 8.4 D, Hgb 13.9, Hct 40.5, Plt Count 361 10/03/21 19:05: Lipase Cancelled 10/03/21 18:00: PT 11.0, INR 1.00 10/03/21 18:00: WBC 11.1 H, Hgb 15.8 H, Hct 46.4 H, Plt Count 408 H 10/03/21 18:00: Sodium 131 L, Potassium 3.4 L, BUN 15, Creatinine 0.97, Glucose 384 H, Magnesium 1.3 L*, Total Bilirubin 0.7, AST 22, ALT 20, Alkaline Phosphatase 166 H, Triglycerides 232 H, Cholesterol 224 H, HDL Cholesterol 34 L, Cholesterol/HDL Ratio 6.59, Lipase 72 L Assessment And Plan - Current Problems (Diagnosis) (1) Chest pain, rule out acute myocardial infarction Current Visit: Yes Status: Acute (2) Diabetes mellitus Current Visit: Yes Status: Chronic Qualifiers: Diabetes mellitus type: type 2 Diabetes mellitus jail insulin use: with jail use Diabetes mellitus complication status: with kidney complications Diabetes mellitus complication detail: with chronic kidney disease Chronic kidney disease stage: stage 2 (mild) Qualified Code(s): E11.22 - Type 2 diabetes mellitus with diabetic chronic kidney disease; N18.2 - Chronic kidney disease, stage 2 (mild); Z79.4 - long term (current) use of insulin (3) Hyperlipidemia Current Visit: Yes Status: Chronic Qualifiers: Hyperlipidemia type: mixed hyperlipidemia Qualified Code(s): E78.2 - Mixed hyperlipidemia (4) Hypertension Current Visit: Yes Status: Chronic Qualifiers: Hypertension type: primary hypertension Qualified Code(s): I10 - Essential (primary) hypertension (5) Unstable angina Current Visit: Yes Status: Acute - Plan Patient seen by cardiology. Dr. Mejia is planning cardiac catheterization tomorrow. Continue aspirin, Lipitor. Metoprolol as her BP will tolerate. Hemoglobin A1c significantly elevated to 13. Insulin sliding scale and long-acting insulin for glucose management. NTG as needed Continue Imdur. Cardiology is following.
--- NOTE | 2021-10-04 14:29 | CON ---
Date of Consultation: 10/04/2021 The patient was admitted on 10/03/[address] Bosch's service. I saw the patient on 10/04/2021. Reason For Consultation: Unstable angina. History Of Present Illness: Ms. Shah is a 51-year-old Latin-Mal[place]ian woman, has had CABG. She is status post right AKA. Has had a history of CVA, seizures, diabetes, hypertension, and dyslipidemia . Came in with substernal chest pressure radiating to the back exactly that she had before. She had an WI in the past. Denied any PND, orthopnea, pedal edema, palpitation, or syncope. Denied any cheli sea or vomiting. Did have some diaphoresis and shortness of breath. EKG is nonspecific. Chest x-ra y is negative. Troponin is negative. Positive dyslipidemia on blood work, magnesium 1.3. BNP was 1 619. Glucose is 384. Allergies: SHE IS ALLERGIC TO TAPE AND TRAMADOL. Review of Systems: Negative. Social History: Negative. Family History: Father with diabetes and heart disease. Medications: Include aspirin, Plavix, Lipitor, insulin, lisinopril, metformin, metoprolol, Ranexa, P rotonix, and Keppra. Physical Examination: Vital Signs: Stable, afebrile. HEENT: Negative. Neck: Supple with no bruit. Chest: Clear. Cardiac: Revealed a regular rhythm and rate. No murmurs, gallops, or rubs. Abdomen: Benign. Extremities: Revealed no clubbing, cyanosis, or edema. Diagnostic Data: As stated earlier. Impression And Plan: 1.The patient with history of coronary artery disease, coronary artery bypass graft and stent ____ plan for the left heart catheterization as well to define her coronary anatomy. She agrees to p roceed. She understands the risk and the benefits of the procedure. 2.The patient is status post right AKA. 3.History of cerebrovascular accident. 4.Seizure, well controlled on Keppra. 5.Diabetes, poorly controlled. 6.Dyslipidemia, poorly controlled. 7.Hypertension. I think we need to increase her Lipitor to 80. I think we need to improve her diab etes regimen, supplement her magnesium. Echocardiogram is pending. Heart catheterization is pending for tomorrow. QUIRINO/KANDIS Voice ID: [id number] Report ID: [id number]
[2021-10-04 16:56] LABS: Magnesium 1.6 mg/dL (1.8-2.4); Phosphorus 2.2 mg/dL (2.5-4.9); Potassium 3.3 mmol/L (3.5-5.1)
[2021-10-04] MEDS ORDERED: POTASSIUM CL SA 10 MEQ TAB PO ONE (20:00)
[2021-10-04] MEDS ORDERED: MAGNESIUM SULFATE 1 gm IVPB 1 GM/100 ML BAG IV ONE (20:00)
[2021-10-04] MEDS: ATORVASTATIN 40 MG TAB PO SCH (21:17)
[2021-10-04] MEDS: POTASS/SODIUM PHOSPHATE 1 PKT POWD.PACK PO SCH ×2 (21:18→23:19)
[2021-10-05] MEDS: POTASS/SODIUM PHOSPHATE 1 PKT POWD.PACK PO SCH (00:11)
[2021-10-05] MEDS: MORPHINE 2 MG/ML SYR IV PRN ×3 (03:18→20:24)
[2021-10-05] MEDS: ASPIRIN EC 81 MG TAB PO SCH (05:26)
[2021-10-05 05:38] LABS: Absolute Lymphocytes (CBC) 2.5 K/uL (0.7-4.9); Hematocrit 46.7 % (36.0-45.0); MPV 8.5 fL (7.6-11.3); RBC Red Blood Cell Count 5.15 M/uL (3.86-4.86)
[2021-10-05 05:53] LABS: Magnesium 1.7 mg/dL (1.8-2.4); Potassium 3.5 mmol/L (3.5-5.1)
--- NOTE | 2021-10-05 06:41 | P.PN ---
Date of Service: 10/05/21 Subjective: no acute events overnight. for cath today no chest pain, no new/worsening symptoms ROS: 10 point ROS as noted above, otherwise negative Physical exam GEN: Alert, oriented, NAD HEENT: Normal conjunctiva, sclera anicteric CV: Regular rate and rhythm, no edema Pulm: Nonlabored respirations on room air ABD: Soft, nontender, nondistended Neuro: Normal speech, normal affect Problem List Unstable angina DM2, insulin-dependent HTN HLD CKD 2 h/o noncompliance Hypokalemia Hypomagnesemia continue aspirin, lipitor, metoprolol NPO for cardiac cath today A1c: 13, patient noncompliant continue insulin, and sliding scale cardiology following further recs based on cath results replace electrolytes Code: full Dispo: home: ~24hrs, pending cath results Time Spent Managing Pts Care (In Minutes): 35
[2021-10-05] MEDS ORDERED: MAGNESIUM SULFATE 1 gm IVPB 1 GM/100 ML BAG IV ONE (07:00)
[2021-10-05] MEDS: INSULIN -REGULAR HUMAN 50 UNIT/0.5 ML ML SQ SCH ×4 (07:30→20:31)
[2021-10-05] MEDS ORDERED: HEPA 1000U/500MLS 1,000 UNIT/500 ML BAG IV ONE (08:47)
[2021-10-05] MEDS ORDERED: LIDOCAINE 1% MPF 30 ML VIAL ONE (08:47)
[2021-10-05] MEDS ORDERED: MIDAZOLAM HCL 2 MG/2 ML INJ ONE ×2 (08:48→09:17)
[2021-10-05] MEDS ORDERED: FENTANYL CITR 100 MCG/2 ML ONE (08:48)
[2021-10-05] MEDS ORDERED: NA CHLORIDE 0.9% 0 ML ONE (08:49)
[2021-10-05] MEDS ORDERED: NA CHLORIDE 0.9% 50 ML ONE (08:49)
[2021-10-05] MEDS ORDERED: ATROPINE SULF 1 MG/10 ML SYR IV ONE (08:49)
[2021-10-05] MEDS ORDERED: NITROGLYCERIN/D5W 25 MG/250 ML BTL IV ONE (09:35)
[2021-10-05] MEDS ORDERED: PRASUGREL (EFFIENT) 10 MG TAB ONE (09:54)
[2021-10-05] MEDS: ISOSORBIDE MONO SR 30 MG TAB PO SCH (14:20)
[2021-10-05] MEDS: NICOTINE 21 MG/PAT TD SCH (14:20)
[2021-10-05] MEDS: ENOXAPARIN 40 MG/0.4 ML SQ SCH (14:33)
[2021-10-05] MEDS: ONDANSETRON 4 MG/2 ML VIAL IV PRN (20:56)
[2021-10-05] MEDS ORDERED: ATORVASTATIN 80 MG TAB PO SCH (21:00)
--- NOTE | 2021-10-05 22:10 | OP ---
Date of Procedure: 10/05/2021 Surgeon: Griffin Mejia MD Data Control Clerk: Ms. Marietta Call The patient was admitted to Dr. Bosch with unstable angina on 10/03/2021. I saw her on 10/04/2021. She was brought to the solar lab technician today, 10/05/2021 as an inpatient because of unstable angina and his tory of coronary artery disease. She underwent left heart catheterization, selective vein graft inje ction, GIBSON injection, and a primary stent of the OM. Indication: CAD and unstable angina. Procedure In Detail: The patient was brought to the [facility] lab technician as an inpatient, prepped and draped in the routine sterile fashion. Given Versed and fentanyl for sedation. 6-Algerian sheath introduced in the right common femoral artery successfully. Angiography there showed poor flow in the distal SFA. She is status post right AKA in the past. We decided to held pressure for hemostasis. Codi cath eters, left and right were used to cannulate the left main and the right main. Her RCA was small, di ffusely diseased, nondominant. Left main was normal. She had a completely occluded LAD with collate ral from the circumflex to the LAD. She had a patent proximal circumflex stent, patent OM stent, but distal to the OM stent was a 90% stenosis. The vein graft to the LAD was occluded. The GIBSON was no t used. I decided to intervene. We used a 6-Algerian Guide XB LAD 3.5 with side holes to cannulate th e left main. We did a primary stent of 2.25 x 16 [employer] Synergy stent at 11 atmospheres w ith 0% residual. We used a cougar wire to cross the lesion. There were no complications. Blood Loss: 5 mL Postoperative Diagnoses: Coronary artery disease, status post primary obtuse marginal stent; 100% oc cluded left anterior descending and vein graft to the left anterior descending with collateral from t he circumflex; severe right coronary artery disease. Plan: To continue aggressive medical therapy. She will be in the hospital for 6 hours after bedrest . I would rather watch her through the morning before discharge. QUIRINO/KANDIS Voice ID: [id number] Report ID: [id number]
[2021-10-06 06:18] VITALS: O2SAT 99
[2021-10-06] MEDS: MORPHINE 2 MG/ML SYR IV PRN (06:30)
[2021-10-06 06:47] LABS: Potassium 3.6 mmol/L (3.5-5.1)
[2021-10-06] MEDS: ISOSORBIDE MONO SR 30 MG TAB PO SCH (08:03)
[2021-10-06] MEDS: ASPIRIN EC 81 MG TAB PO SCH (08:03)
[2021-10-06] MEDS: ENOXAPARIN 40 MG/0.4 ML SQ SCH (08:03)
[2021-10-06] MEDS: CLOPIDOGREL 75 MG TABLET PO SCH ×2 (08:04→08:13)
[2021-10-06] MEDS: NICOTINE 21 MG/PAT TD SCH (08:04)
[2021-10-06] MEDS: INSULIN -REGULAR HUMAN 50 UNIT/0.5 ML ML SQ SCH (08:11)
[2021-10-06] MEDS ORDERED: AMOXICILLIN TRIHYDR 250 MG CAP PO SCH (09:00)
[2021-10-06 13:11] VITALS: BP 132/73; TEMP 98.5
--- NOTE | 2021-10-06 18:19 | P.DS ---
Admission Date: 10/04/21 Discharge Date: 10/06/21 Disposition: ROUTINE DISCHARGE Reason for Admission: Chest Pain Consultations: Cardiology - Dr. Mejia Procedures: Problem List NSTEMI, required stent placement UTI; without sepsis DM2, insulin-dependent HTN HLD CKD 2 h/o noncompliance Hypokalemia Hypomagnesemia Brief History of Present Illness: 51yo F, PMH: DDM, HTN, HLD, CVA, noncompliance, and extensive cardiac history who presented to the ED with complaints of bilateral chest pain (heaviness/pressure sensation) radiating to her back and shoulders that started earlier that morning. EKG negative for acute ST changes. Labs notable for hyperglycemia, hypomagnesemia, elevated BNP, and UA concerning for UTI. CT angio negative for aortic dissection / acute thoracic process. Patient admitted for ACS rule out. Hospital Course: Patient was found to have 90% stenosis of her coronary artery (OM) and underwent stent placement by Dr. Mejia on 10/05. Patient had improvement of her chest / back pain. She was monitored overnight and deemed stable for discharge. She is to continue aspirin, plavix, and atorvastatin 80mg as already prescribed. She reported 1-2 days of UTI symptoms, with recurrent UTI / yeast infections over the last few months. Discussed her uncontrolled diabetes is increasing her risk. Her A1c was 13. She will follow up with PCP, work on diet, and insulin. Urine grew GBS and she is discharged with 7 days of amoxicillin. Follow up with PCP within 1 week Follow up with Dr. Bagley in ~2 weeks. Vital Signs/Physical Exam: Temp Pulse Resp BP Pulse Ox 98.5 F 109 H 16 132/73 98 10/06/21 12:00 10/06/21 12:00 10/06/21 12:00 10/06/21 12:00 10/06/21 12:00 Physical exam GEN: Alert, oriented, NAD HEENT: Normal conjunctiva, sclera anicteric CV: Regular rate and rhythm, no edema Pulm: Nonlabored respirations on room air ABD: Soft, nontender, nondistended Neuro: Normal speech, normal affect Laboratory Data at Discharge: WBC 9.1 K/uL (4.3-10.9) 10/05/21 05:19 Hgb 15.9 g/dL (12.0-15.0) H 10/05/21 05:19 Hct 46.7 % (36.0-45.0) H D 10/05/21 05:19 Plt Count 394 K/uL (152-406) 10/05/21 05:19 PT 11.0 SECONDS (9.5-12.5) 10/03/21 18:00 INR 1.00 10/03/21 18:00 Sodium 141 mmol/L (136-145) 10/06/21 06:20 Potassium 3.6 mmol/L (3.5-5.1) 10/06/21 06:20 BUN 5 mg/dL (7-18) L 10/06/21 06:20 Creatinine 0.68 mg/dL (0.55-1.3) 10/06/21 06:20 Glucose 220 mg/dL (74-106) H 10/06/21 06:20 Phosphorus 3.0 mg/dL (2.5-4.9) 10/05/21 05:19 Magnesium 1.7 mg/dL (1.8-2.4) L 10/05/21 05:19 Total Bilirubin 0.2 mg/dL (0.2-1.0) 10/04/21 03:03 AST 21 U/L (15-37) 10/04/21 03:03 ALT 19 U/L (12-78) 10/04/21 03:03 Alkaline Phosphatase 127 U/L (45-117) H 10/04/21 03:03 Triglycerides 232 mg/dL (<150) H 10/03/21 18:00 Cholesterol 224 mg/dL (<200) H 10/03/21 18:00 HDL Cholesterol 34 mg/dL (40-60) L 10/03/21 18:00 Cholesterol/HDL Ratio 6.59 10/03/21 18:00 Lipase Cancelled 10/03/21 19:05 Home Medications: Clopidogrel Bisulfate [Plavix] 75 mg PO DAILY #30 tablet 05/16/17 Gabapentin 800 mg PO TID 07/18/20 Amitriptyline [Elavil*] 25 mg PO DAILY 10/04/21 Aspirin [[place]] 81 mg PO DAILY 10/04/21 Atorvastatin Calcium [Lipitor] 80 mg PO BEDTIME 10/04/21 Insulin 70/30 NPH/Reg Human [Novolin 70/30*] 45 units SQ DAILY 10/04/21 Insulin 70/30 NPH/Reg Human [Novolin 70/30*] 55 units SQ BEDTIME 10/04/21 Metronidazole 500 mg PO Q8HP 10/04/21 Mirtazapine 15 mg PO BEDTIME 10/04/21 lisinopriL [Lisinopril] 5 mg PO DAILY 10/04/21 Rifaximin [Xifaxan] 550 mg PO 10/05/21 Amoxicillin 500 mg PO Q8H 7 Days #21 tablet 10/06/21 New Medications: Amoxicillin 500 mg PO Q8H 7 Days #21 tablet Diet: ADA Activity: Ad buck Followup: Griffin Mejia MD [ACTIVE - CAN ADMIT] - (Call to schedule appointment.) Dev Zavala MD [Primary Care Provider] - (Call to schedule apointment.) Time spent managing pt's care (in minutes): 45
== END 2021-10-06 13:39 | disposition home or self-care (01) | DRG 247 ==
LOC: ER 17:06 → ERHOLD 20:25 → OBSVTOIN 10-04 11:59 → 2ND 10-04 13:35
PROVIDERS: ADMIT Internal Medicine; ATTEND Hospitalist
PROC: 05HQ33Z Insertion of Infusion Device into Left External Jugular Vein, Percutaneous Approach (ICD-10-PCS; 2021-10-04)
PROC: 027034Z Dilation of Coronary Artery, One Artery with Drug-eluting Intraluminal Device, Percutaneous Approach (ICD-10-PCS; principal; 2021-10-05)
PROC: B2021ZZ Plain Radiography of Single Coronary Artery Bypass Graft using Low Osmolar Contrast (ICD-10-PCS; 2021-10-05)
PROC: B2011ZZ Plain Radiography of Multiple Coronary Arteries using Low Osmolar Contrast (ICD-10-PCS; 2021-10-05)
DX: I21.4 Non-ST elevation (NSTEMI) myocardial infarction (principal); I50.22 Chronic systolic (congestive) heart failure; I13.0 Hypertensive heart and chronic kidney disease with heart failure and stage 1 through stage 4 chronic kidney disease, or unspecified chronic kidney disease; N39.0 Urinary tract infection, site not specified; I25.110 Atherosclerotic heart disease of native coronary artery with unstable angina pectoris; E78.5 Hyperlipidemia, unspecified; I11.0 Hypertensive heart disease with heart failure; I73.9 Peripheral vascular disease, unspecified; E11.22 Type 2 diabetes mellitus with diabetic chronic kidney disease; N18.2 Chronic kidney disease, stage 2 (mild); B96.20 Unspecified Escherichia coli [E. coli] as the cause of diseases classified elsewhere; G40.909 Epilepsy, unspecified, not intractable, without status epilepticus; E87.6 Hypokalemia; E83.42 Hypomagnesemia; K21.9 Gastro-esophageal reflux disease without esophagitis; F17.200 Nicotine dependence, unspecified, uncomplicated; Z95.1 Presence of aortocoronary bypass graft; Z89.611 Acquired absence of right leg above knee; Z79.4 Long term (current) use of insulin; Z86.73 Personal history of transient ischemic attack (TIA), and cerebral infarction without residual deficits; Z20.822 Contact with and (suspected) exposure to COVID-19
CPT/HCPCS: 36415; 71045; 71275; 74175; 80048; 80053; 80061; 80076; 81003; 82947; 83036; 83690; 83735; 83880; 84100; 84132; 84484; 85025; 85347; 85610; 87077; 87086; 87088; 87186; 93005; 93306; 93455; 96372; 96374; 96375; 99285; C1725; C1877; C1893; C9600; G0378; J0583; J1644; J1650; J1815; J2250; J2270; J2405; J3010; J3475; J7040; Q9967; U0003

== ENCOUNTER 2021-10-25 11:06 | Emergency (ER) | payer OTHER ==
--- OUTSIDE RECORDS SUMMARY | 2021-10-25 11:11 | XMS REPORT | Continuity of Care Document ---
:1970 Author Organization [facility] t Address [address] [place] [address] Care Team Providers Name Role Phone Lucas BROWN, A Primary Care Physician Jabari [employer] Attending Clinician JABARI Attending Clinician Unavailable Lucas BROWN, A Attending Clinician Payers Payer Name Policy Type Policy Number Effective Date Expiration Date S ource Problems Condition Condition Condition Status Onset Resolution Last Treating Co mments Source Name Details Category Date Date Treatment Clinician Date UTI UTI Disease Active Univers (urinary (urinary 8-20 ity of tract tract 00:00: [place] infection) infection) 00 Me dical Branch Dizziness Dizziness Disease Active Uni vers 8-20 ity of 00:00: 00 Medical Branch Weakness Weakness Disease Active Unive rs 8-20 ity of 00:00: [place] 00 Medical Branch CAD in CAD in Disease Active Univers venetie ira venetie ira 7-05 ity of artery artery 00:00: 00 Medical Branch Hypoglycem Hypoglycem Disease Active U nivers ia ia 6-11 ity of 00:00: [place] [...] 00:00: [place] involving involving 00 Medi blanquita ven[place] ira ven[place] ira Branch coronary coronary artery of artery of ven[place] ira ven[place] ira heart heart without without angina angina pectoris [...] Added automatic ally from request for surgery [id number] High High Disease Active Univers cholestero cholestero it y of l l [facility] HTN HTN Disease Active Univers (hypertens (hypertens it y of ion) ion) [facility] GERD GERD Disease Active Univers (gastroeso (gastroeso it y of phageal phageal [place] reflux reflux Medical disease) disease) Branch DM DM Disease Active Univers (diabetes (diabetes ity of mellitus) mellitus) [facility] Depression Depression Disease Active U nivers ity of [facility] CVA CVA Disease Active Univers (cerebral (cerebral ity of vascular vascular [place] accident) accident) [facility] CHF CHF Disease Active Univers (congestiv (congestiv it y of e heart e heart [place] failure) failure) Medica Branch Anxiety Anxiety Disease Active Univers ity of [facility] Angina Angina Disease Active Univers pectoris pectoris ity of [facility] H/O right H/O right Disease Active Uni vers coronary coronary ity of artery artery [place] stent stent Medical placement placement Bran ch Hyperlipid Hyperlipid Disease Active U nivers emia, emia, ity of unspecifie [place]spec[place]ie [place] Medical hyperlipid hyperlipid Br anch emia type emia type Essential Essential Disease Active Uni vers hypertensi hypertensi it y of on, benign on, benign [place] [facility] Branch Hx of CABG Hx of CABG Disease Active U nivers ity of [facility] Migraines Migraines Disease Active Uni vers ity of [facility] Seizures Seizures Disease Active Unive rs ity of [facility] Unilateral Unilateral Disease Active U nivers AKA, right AKA, right it y of [facility] History of History of Problem Active C ommon CVA CVA Spirit (cerebrova (cerebrova - [facility] scular scular [facility] accident) accident) [facility] Migraine Migraine Problem Active Commo n without without Spirit aura and aura and - [facility] without without St status status [facility] migrainosu migrainosu Me dical s, not s, not Center intractabl intractabl e e 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 - [facility] with with St hyperglyce hyperglyce [facility] 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 - [facility] with other with other St specified specified [facility] complicati complicati Me dical on on Center Hx of CABG Hx of CABG Problem Active C ommon Spirit - [facility] Chronic Chronic Problem Active Common pain pain Spirit disorder disorder - [facility] 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 Spirit use of use of - [facility] insulin insulin [facility] Neuropathy Neuropathy Problem Active C ommon Spirit - [facility] Depression Depression Problem Active C ommon with with Spirit anxiety anxiety - [facility] HTN HTN Problem Active Common (hypertens (hypertens Sp kate ion), ion), - CHI benign benign [facility] Seizures Seizures Problem Active Commo n Spirit - [facility] Coronary Coronary Problem Active Commo n artery artery Spirit disease disease - [facility] involving involving coronary coronary [facility] bypass bypass Medical graft of graft of Presho venetie ira venetie ira heart with heart with angina angina pectoris pectoris Dependent Dependent Problem Active Com mon on on Spirit wheelchair wheelchair - [facility] History of History of Problem Active C rashel right right Spirit above knee above knee - [facility] amputation amputation [facility] Allergies, Adverse Reactions, Alerts Allergy [...] of TROMETHA 00:00: [place] MINE 00 Medical [place] TRAMADOL DRUG Active Hives Univers INGREDI 7-20 ity of 00:00: [place] 00 [facility] Toradol Adverse Active Info Not Common Reaction Available [facility] t [facility] tramadol Adverse Active Info Not Commo n Reaction Available [facility] t [facility] Social History Social Habit Start Date Stop Date Quantity Comments Source History of tobacco Cigarette Smoker University of use [facility] Exposure to 2021-10-05 2021-10-15 Not sure University SARS-CoV-2 (event) 00:00:00 08:53:00 [facility] Alcohol intake 2021-06-21 2021-06-21 Ex-drinker University 00:00:00 00:00:00 (finding) [facility] Education 2021-01-15 2021-01-15 12 University of 00:00:00 00:00:00 [place] Medical [facility] History SDOH 2020-05-08 2020-05-08 99 University o f Alcohol Frequency 00:00:00 00:00:00 [place] M edical Branch History SDOH 2020-05-08 2020-05-08 99 University o f Alcohol Std Drinks 00:00:00 00:00:00 [place] Medical [facility] History SDOR 2020-05-08 2020-05-08 99 University o f Alcohol Binge 00:00:00 00:00:00 [place] Medic al Branch Tobacco Comment 2020-04-03 2020-04-03 smoking since 12 Uni versity of 00:00:00 00:00:00 years old [facility] Alcohol Comment 2019-10-11 2019-10-11 rare Universit y of 00:00:00 00:00:00 [facility] Cigarettes smoked 2018-02-21 2018-02-21 Univers ity of current (pack per 00:00:00 00:00:00 ) - Reported Branch Tobacco use and 2018-02-21 2018-02-21 Never used Universit y of exposure 00:00:00 00:00:00 [facility] Sex [birth year] At [birth year] Universit y of 00:00:00 00:00:00 [facility] Smoking Status Start Date Stop Date Source Current every day smoker 2018-02-21 00:00:00 Uni versity of [facility] Medications Ordered Filled Start Stop Current Ordering Indication Dosage Frequency Signature Comments Components Source Medication Medication Date Date Medication? Clinician (SIG) Name Name jennifer Yes [id number] 1{each} Apply 1 U nivers glucose 5-20 Each to ity of sensor 00:00: skin every [place] (FREESTYLE 00 14 Medical RASHARD 2 (fourteen) Branch SENSOR) Kit days. Dx E11.9 jennifer Yes [id number] 1{each} 1 Each Un cali glucose 5-20 daily. Dx ity of scanning 00:00: E11.9 [place] reader 00 Medical (FREESTYLE Branch RASHARD 2 READER) Misc insulin NPH Yes [id number] 45U inject Univers and regular 5-20 45-55 ity of human 70-30 00:00: Units [place] (NOVOLIN 00 under the Medica l 70/30 U-100 skin 2 Branch INSULIN) (two) 100 unit/mL times (70-30) daily injection before breakfast and dinner. atorvastati Yes 80mg Take 1 Univ ers n 80 mg 5-20 tablet by ity of tablet 00:00: mouth at [place] 00 bedtime. Medical Branch Blood-Gluco Yes [id number] Use 3 Univers se Meter 5-20 times ity of (TRUE 00:00: daily. Dx [place] METRIX 00 E11.9 Medical GLUCOSE Branch METER) Misc blood sugar Yes [id number] Use 3 Univers diagnostic 5-20 times ity of (TRUE 00:00: daily. Dx [place] METRIX 00 E11.9 Medical GLUCOSE Branch TEST STRIP) strip GABAPENTIN Yes [id number] TAKE 1 Univers 800 mg 2-25 TABLET BY ity of tablet 00:00: MOUTH [place] 00 THREE Medical TIMES Branch DAILY MIRTAZAPINE 2020-05 Yes [id number] 15mg TAKE 1 Univers 15 mg 2-20 TABLET BY ity of tablet 00:00: MOUTH AT [place] 00 BEDTIME Medical Branch ondansetron Yes [id number] 4mg Take 1 Univers 4 mg 8-06 tablet by ity of disintegrat 00:00: mouth [place] ing tablet 00 every 8 Medica l (eight) Branch hours as needed for Nausea and Vomiting (N/V). aspirin 81 0 Yes [id number] 81mg Take 1 U nivers mg chewable 7-07 tablet by ity of tablet 00:00: mouth [place] 00 daily. Medical Branch clopidogreL 0 Yes [id number] 75mg Take 1 Univers 75 mg 7-07 tablet by ity of tablet 00:00: mouth [place] 00 daily. Medical Branch ezetimibe 0 Yes [id number] 10mg Take 1 U nivers 10 mg 6-18 tablet by ity of tablet 00:00: mouth [place] 00 daily. Medical Branch furosemide 0 Yes [id number] 1 tablet Univers 20 mg 6-18 02 as needed ity of tablet 00:00: for leg [place] 00 swelling Medical Branch insulin NPH 2020-0 2022- No [id number] 40U inject Univers and regular 5-12 05-20 40-50 ity of human 70-30 00:00: 00:00 [place] (NOVOLIN 00 :00 under the Medica l 70/30 U-100 skin 2 Branch INSULIN) (two) 100 unit/mL times (70-30) daily injection before breakfast and dinner. glipiZIDE Yes Type 2 5mg Take 0.5 [...] [place] 00 involving bedtime. Medica l ven[place]ie ira Branch coronary artery of ven[place] ira heart without angina pectoris glipiZIDE Yes Type [...] [place] 00 involving bedtime. Medica l [place] ir[place] Branch coronary artery of ven[place] ira heart without angina pectoris atorvastati 2021- No [id number] 80mg Take 1 Univers n 80 mg 5-06 05-20 tablet by ity of tablet 00:00: 00:00 mouth at [place] 00 :00 bedtime. Medical Branch ezetimibe 2020- No Uncontrolle 10mg Take [...] human 70-30 00:00: 04:59 diabetes under the [place] (NOVOLIN 00 :00 mellitus skin 2 Medic [...] human 70-30 00:00: 04:59 diabetes under the [place] (NOVOLIN 00 :00 mellitus skin 2 Medic [...] :00 involving daily for Medi blanquita tablet venetie ira 30 days. Branch coronary artery of ven[place] ira heart without angina pectoris SITagliptin 2020- No Uncontrolle 100mg Take 1 Univers 100 mg 09-0713 d type 2 tablet by ity of tablet 00:00: 04:59 diabetes mouth with [place] 00 :00 mellitus evening Medical with meal for Branch hyperglycem 30 days. ia metoprolol 2020- No Coronary 50mg Take 0.5 Univers succinate 4-12 05-13 artery tablets by i ty of XL 100 mg 00:00: 04:59 disease mouth Raffy as 24 hr 00 :00 involving daily for Medi blanquita tablet venetie ira 30 days. Branch coronary artery of ven[place] ira heart without angina pectoris SITagliptin 2020- No [...] human 70-30 00:00: 00:00 diabetes under the [place] (NOVOLIN 00 :00 mellitus skin 2 Medic [...] human 70-30 00:00: 00:00 diabetes under the [place] (NOVOLIN 00 :00 mellitus skin 2 Medic [...] TWICE Medical DAILY WITH Branch MEALS METFORMIN 2021- No TAKE 2 Unive rs 500 mg 3-09 05-20 TABLETS BY ity of tablet 00:00: 00:00 MOUTH [place] 00 :00 TWICE Medical DAILY WITH Branch MEALS pantoprazol Yes [id number] 40mg Take 1 Univers e 40 mg [...] as 00 :00 involving bedtime. Medica l venetie ira Branch coronary artery of ven[place] ira heart without angina pectoris atorvastati 2020- No Coronary 80mg Take 1 Univers n 80 mg 3-20 05-06 artery tablet by ity of tablet 00:00: 00:00 disease mouth at [place] as 00 :00 involving bedtime. Medica l venetie ira Branch coronary artery of [place] ir[place] heart without angina pectoris nitroglycer 2018-05 Yes [id number] 1 tab SL Univers in 0.4 mg [...] 911. Atorvastati Atorvastati Yes Dada 1 tablet Common n Calcium n Calcium [facility] Lexapro Lexapro Yes Dada 1 tablet Com mon [facility] Metoprolol Metoprolol Yes Dada 1 tablet Common Tartrate Tartrate Horan with food [facility] Ranexa Ranexa Yes Dada 1 tablet Commo n Horan [facility] Insulin Insulin Yes Dada 60 units Com mon Aspart Prot Aspart Prot Horan BID Spirit & Aspart & Aspart [facility] Aspirin Aspirin Yes Dada 1 tablet Com mon [facility] Gabapentin Gabapentin Yes Dada 1 tablet [facility] Furosemide Furosemide Yes Dada 1 tablet Common Horan [facility] Duloxetine Duloxetine Yes Dada 1 capsule Common HCl HCl [facility] Xanax Xanax Yes Dada 1 tablet Common Horan [facility] Clopidogrel Clopidogrel Yes Dada 1 tablet Common Bisulfate Bisulfate Horan [facility] Metformin Metformin Yes Dada 1 tablet Common HCl HCl Horan with meals [facility] Pantoprazol Pantoprazol Yes Dada 1 tablet Common e Sodium e Sodium [facility] Klor-Con Klor-Con Yes Dada 1 tablet C ommon M10 M10 Horan with food [facility] Duloxetine Duloxetine Yes Dada 1 capsule Common HCl HCl Horan [facility] Levetiracet Levetiracet Yes Dada 1 tablet Common am am Horan [facility] Herrick Herrick Yes Dada 1 tablet Common Horan as needed [facility] Lexapro Lexapro Yes Dada 1 tablet Com mon [facility] Atorvastati Atorvastati Yes Dada 1 tablet Common n Calcium n Calcium Horan Spir [facility] Clopidogrel Clopidogrel Yes Dada 1 tablet Common Bisulfate Bisulfate Horan Spir [facility] Furosemide Furosemide Yes Dada 1 tablet Common Horan [facility] Immunizations Ordered Filled Immunization Date Status Comments Sour e Immunization Name Name SARS-COV-2 COVID-19 2021-01-17 Completed Unive [facility] of PFIZER VACCINE 00:00:00 [facility] Vital Signs Vital Name Observation Time Observation Value Comments Source Systolic blood 2021-10-15 14:01:00 125 mm[Hg] [facility] Diastolic blood 2021-10-15 14:01:00 83 mm[Hg] Unive [facility] Heart rate 2021-10-15 14:01:00 95 /min [facility] Body weight 2021-10-15 14:01:00 55.702 kg [facility] BMI 2021-10-15 14:01:00 21.08 kg/m2 [facility] Oxygen saturation 2021-10-15 14:01:00 98 /min [facility] in Arterial blood [facility] anch by Pulse oximetry Heart rate 2020-10-01 20:20:00 60 /min [facility] Systolic blood 2020-10-01 20:20:00 120 mm[Hg] [facility] Diastolic blood 2020-10-01 20:20:00 80 mm[Hg] Unive [facility] Heart rate 2020-10-01 20:20:00 60 /min [facility] Systolic blood 2020-10-01 20:20:00 120 mm[Hg] Univer sity of [place] pressure Medical Branch Diastolic blood 2020-10-01 20:20:00 80 mm[Hg] Unive rsity of [place] pressure Medical Branch Procedures This patient has no known procedures. Plan of Care Planned Activity Planned Date Details Comments Source Future Scheduled 2022 Screening for [facility] [place] Test 00:00:00 malignant neoplasm of Medica l Branch colon (procedure) [code = 675189154] Future Scheduled 2022 Screening for [facility] [place] Test 00:00:00 malignant neoplasm of Medica l Branch colon (procedure) [code = 479921129] Future Scheduled 2021-09-07 Creatinine [facility] [place] Test 00:00:00 measurement Medical Branch (procedure) [code = 59781838] Future Scheduled 2021-09-07 Creatinine [facility] [place] Test 00:00:00 measurement Medical Branch (procedure) [code = 96041723] Future Scheduled 2021-09-05 Calculated low Universit y [facility] [place] Test 00:00:00 density lipoprotein Medical Branch cholesterol level (procedure) [code = 495461605] Future Scheduled 2021-09-05 Calculated low Universit y of [place] Test 00:00:00 density lipoprotein Medical Branch cholesterol level (procedure) [code = 959072089] Future Scheduled 2021-05-08 Depression screening Uni versity of [place] Test 00:00:00 (procedure) [code = Medical Branch [id number]] Future Scheduled 2021-05-08 Depression screening Uni versity of [place] Test 00:00:00 (procedure) [code = Medical Branch [id number]] Future Scheduled 2021-03-07 Hemoglobin A1c Universit y [facility] [place] Test 00:00:00 measurement Medical Branch (procedure) [code = 52287844] Future Scheduled 2021-03-07 Hemoglobin A1c Universit y [facility] [place] Test 00:00:00 measurement Medical Branch (procedure) [code = 92295006] Future Scheduled 2021-01-27 INFLUENZA VACCINE Univer s[facility] of [place] Test 00:00:00 (Season Ended) [code Medical Branch = INFLUENZA VACCINE (Season Ended)] Future Scheduled 2021-01-27 INFLUENZA VACCINE Univer sity of [place] Test 00:00:00 (Season Ended) [code Medical Branch = INFLUENZA VACCINE (Season Ended)] Future Scheduled 2020-10-31 Screening for [facility] [place] Test 00:00:00 malignant neoplasm of Medica l Branch breast (procedure) [code = 536705487] Future Scheduled 2020-10-31 Screening for [facility] Test 00:00:00 malignant neoplasm of Medica l Branch breast (procedure) [code = 166396920] Future Scheduled 2020-09-25 Screening for University [facility] Test 00:00:00 malignant neoplasm of Medica l Branch cervix (procedure) [code = 700116941] Future Scheduled 2020-09-25 Screening for [facility] Test 00:00:00 malignant neoplasm of Medica l Branch cervix (procedure) [code = 737242386] Future Scheduled 2020-05-10 Diabetic foot [facility] Test 00:00:00 examination Medical Branch (regime/therapy) [code = 979313391] Future Scheduled 2020-05-10 Diabetic foot [facility] Test 00:00:00 examination Medical Branch (regime/therapy) [code = 205173526] Future Scheduled 2019-09-01 Microalbumin [facility] Test 00:00:00 measurement, urine, Medical Branch quantitative (procedure) [code = 989083330] Future Scheduled 2019-09-01 Microalbumin [facility] Test 00:00:00 measurement, urine, Medical Branch quantitative (procedure) [code = 116333924] Future Scheduled 1991 DTaP,Tdap,and Td Univers ity [facility] Test 00:00:00 Vaccines (1 - Tdap) Medical Branch [code = DTaP,Tdap,and Td Vaccines (1 - Tdap)] Future Scheduled 1991 DTaP,Tdap,and Td Univers ity [facility] Test 00:00:00 Vaccines (1 - Tdap) Medical Branch [code = DTaP,Tdap,and Td Vaccines (1 - Tdap)] Future Scheduled 1990 Hepatitis C screening Un ivers[facility] of [place] Test 00:00:00 (procedure) [code = Medical Branch [id number]] Future Scheduled 1990 Hepatitis C screening Un ivers[facility] [place] Test 00:00:00 (procedure) [code = Medical Branch [id number]] Future Scheduled 1988 SARS-CoV-2 (COVID-19) Un iversity of [place] Test 00:00:00 Vaccine (1) [code = Medical Branch SARS-CoV-2 (COVID-19) Vaccine (1)] Future Scheduled 1988 SARS-CoV-2 (COVID-19) Un ivers[facility] of [place] Test 00:00:00 Vaccine (1) [code = Medical Branch SARS-CoV-2 (COVID-19) Vaccine (1)] Future Scheduled 1982 Examination of retina Un ivers[facility] [place] Test 00:00:00 (procedure) [code = Medical Branch [id number]] Future Scheduled 1982 Examination of retina Un ivers[facility] [place] Test 00:00:00 (procedure) [code = Medical Branch 601619902] Future Scheduled 1978 PNEUMOCOCCAL 0-64 Univer sity of [place] Test 00:00:00 YEARS COMBINED SERIES Medica l Branch (1 of 1 - PPSV23) [code = PNEUMOCOCCAL 0-64 YEARS COMBINED SERIES (1 of 1 - PPSV23)] Future Scheduled 1978 PNEUMOCOCCAL 0-64 Univer sity of [place] Test 00:00:00 YEARS COMBINED SERIES Medica l Branch (1 of 1 - PPSV23) [code = PNEUMOCOCCAL 0-64 YEARS COMBINED SERIES (1 of 1 - PPSV23)] Encounters Start End Encounter Admission Attending Care Care Encounter Source Date/Time Date/Time Type Type Clinicians Facility Department ID 2021-10-15 2021-10-15 Office VICKI Barboza [id number] Univers 09:00:00 09:37:13 Visit [employer] [id number] it y of [place] [id number] Raffy as DILLAN?BLEA [id number] [address] MEDICAL OFFICE BUILDING 2021-10-15 2021-10-15 Outpatient R JABARI MSMINDY [facility] [id number] Univers 09:00:00 09:37:13 [facility] 2020-10-01 2020-10-01 Office VICKI Zavala [id number] 15:08:27 16:09:31 Visit [employer] [id number] [place] [id number] Professio [id number] nal 0[address] 2018-06-27 2018-06-27 [id number] Common 11:57:00 11:57:[address] [facility] 2018-06-15 2018-06-15 [id number] Common 16:24:00 16:24:[address] [facility] 2018-06-13 2018-06-13 [facility] [id number] Common 13:30:00 13:30:[address] [facility] 2017-12-12 2017-12-12 [facility] [id number] Common 13:22:00 13:22:[address] [facility] 2017-11-20 2017-11-20 [facility] [id number] Common 10:30:00 10:30:[address] [facility] 2017-11-02 2017-11-02 [facility] [id number] Common 15:15:00 15:15:[address] [facility] Results This patient has no known results.
[2021-10-25 11:49] LABS: Urine Blood 2+ (Negative); Urine Glucose 3+ (Negative); Urine Protein 2+ (Negative)
[2021-10-25] MEDS ORDERED: PHENAZOPYRIDINE 100MG TAB PO ONE (12:06)
[2021-10-25 12:16] LABS: Urine Bacteria 20-50 /HPF (<20); Urine Mucus 2+ /HPF (NONE SEEN); Urine Urothelial Cells <5 /HPF (NONE SEEN)
--- NOTE | 2021-10-25 13:00 | EDPHYS ---
Physician Documentation [facility] Name: Karen Shah Age: 51 yrs Sex: Female : 1970 Arrival Date: 10/25/2021 Time: 11:09 Bed 6 Private MD: ED Physician Wes Marion HPI: 10/25 11:30 This 51 yrs old Female presents to ER via Wheelchair with complaints of Pain cp With Urination. 11:30 The patient presents with urinary symptoms, dysuria. Onset: The symptoms/episode cp began/occurred 2 week(s) ago. 11:30 Associated signs and symptoms: Pertinent positives: constipation, Pertinent negatives: cp fever, vaginal bleeding, abdominal pain. Severity of symptoms: in the emergency department the symptoms are unchanged, despite home interventions. 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 - Social history:: Smoking status: Patient reports the use of cigarette tobacco products, smokes one-half pack cigarettes per day. ROS: 11:35 Constitutional: Negative for body aches, chills, fever, poor PO intake. cp 11:35 Eyes: Negative for injury, pain, redness, and discharge. cp 11:35 ENT: Negative for drainage from ear(s), ear pain, sore throat, difficulty swallowing, difficulty handling secretions. 11:35 Cardiovascular: Negative for chest pain, palpitations. 11:35 Respiratory: Negative for cough, shortness of breath, wheezing. 11:35 Abdomen/GI: Positive for constipation, Negative for abdominal pain, nausea, vomiting, and diarrhea. 11:35 Back: Negative for pain at rest, pain with movement, radiated pain. 11:35 : Positive for urinary symptoms, Negative for vaginal bleeding, vaginal discharge. 11:35 Neuro: Negative for altered mental status, headache, weakness. 11:35 All other systems are negative. Exam: 11:40 Constitutional: The patient appears in no acute distress, alert, awake, non-toxic, well cp developed, well nourished. 11:40 Head/Face: Normocephalic, atraumatic. cp 11:40 Eyes: Periorbital structures: appear normal, Conjunctiva: normal, no exudate, no injection, Sclera: no appreciated abnormality, Lids and lashes: appear normal, bilaterally. 11:40 ENT: External ear(s): are unremarkable, Nose: is normal, Mouth: Lips: moist, Oral mucosa: moist, Posterior pharynx: Airway: no evidence of obstruction, patent. 11:40 Chest/axilla: Inspection: normal. 11:40 Cardiovascular: Rate: normal. 11:40 Respiratory: the patient does not display signs of respiratory distress, Respirations: normal, no use of accessory muscles, no retractions, labored breathing, is not present, Breath sounds: are clear throughout, no decreased breath sounds, no stridor, no wheezing. 11:40 Abdomen/GI: Inspection: abdomen appears normal, Bowel sounds: active, all quadrants, Palpation: soft, in all quadrants, moderate abdominal tenderness, in the suprapubic area, rebound tenderness, is not appreciated, voluntary guarding, is not appreciated, involuntary guarding, is not appreciated. 11:40 Back: CVA tenderness, is absent. 11:40 Neuro: Orientation: to person, place \T\ time. Mentation: is normal. Vital Signs: 11:20 BP 113 / 79; Pulse 93; Resp 17; Temp 97.5(O); Pulse Ox 98% on R/A; Weight 54.43 kg; ap3 Height 5 ft. 4 in. (162.56 cm); 13:16 BP 119 / 82; Pulse Ox 100% ; tp1 13:16 Pulse 80; Resp 17; jl7 11:20 Body Mass Index 20.60 (54.43 kg, 162.56 cm) ap3 MDM: 11:26 Patient medically screened. cp 12:58 Data reviewed: vital signs, nurses notes, lab test result(s). cp 12:58 Counseling: I had a detailed discussion with the patient and/or guardian regarding: the cp historical points, exam findings, and any diagnostic results supporting the discharge/admit diagnosis, lab results, the need for outpatient follow up, a family practitioner, to return to the emergency department if symptoms worsen or persist or if there are any questions or concerns that arise at home. ED course: VSS. Patient appears non-toxic. Discussed use of OTC Miralax for constipation as patient reports hard bowel movements over past couple weeks. Will discharge to home for continued monitoring with oral antibiotic. 10/25 11:27 Order name: Urine Microscopic Only; Complete Time: 12:56 cp 10/25 12:57 Interpretation: Normal except: UWBC TNTC; URBC 10-20; UBACT 20-50; SQEPI 5-10. cp 10/25 11:49 Order name: Urine Dipstick-Ancillary; Complete Time: 11:56 EDMS 10/25 12:14 Order name: Glucose, Ancillary Testing; Complete Time: 12:56 EDMS 10/25 12:20 Order name: Urine Culture EDMS 10/25 11:27 Order name: Urine Dipstick-Ancillary (obtain specimen); Complete Time: 11:52 cp 10/25 11:56 Order name: Accucheck Blood Glucose; Complete Time: 12:07 cp Administered Medications: 12:12 Drug: Pyridium (phenazopyridine) 200 mg Route: PO; ph 13:12 Follow up: Response: No adverse reaction jl7 13:11 Drug: Rocephin (cefTRIAXone) 1 grams Route: IM; Site: right ventrogluteal; jl7 13:25 Follow up: Response: No adverse reaction jl7 Disposition Summary: 10/25/21 12:59 Discharge Ordered Location: Home cp Problem: new cp Symptoms: have improved cp Condition: Stable cp Diagnosis - UTI/ Urinary tract infection, site not specified cp Followup: cp - With: Private Physician - When: 2 - 3 days - Reason: Recheck today's complaints Discharge Instructions: - Discharge Summary Sheet cp - Constipation, Adult cp - Urinary Tract Infection, Adult cp Forms: - Medication Reconciliation Form cp - Thank You Letter cp - Antibiotic Education cp - Prescription Opioid Use cp Prescriptions: - Pyridium 200 mg Oral Tablet - take 1 tablet by ORAL route every 8 hours for 2 days; 6 tablet; Refills: 0, cp Product Selection Permitted - Bactrim DS 800-160 mg Oral Tablet - take 1 tablet by ORAL route every 12 hours for 7 days; 14 tablet; Refills: 0, cp Product Selection Permitted Addendum: 10/26/2021 21:54 Co-signature as Attending Physician, Wes SIMS was immediately available on-site m s3 in the Emergency Department for consultation in the care of the patient. . Signatures: Dispatcher [employer] Erica Munson RN RN hal Mcdaniel, ALVARADO Felix cp, Jahala, RN RN jl7 Angie Cooper RN RN ap3 Wes Marion DO DO ms3 Corrections: (The following items were deleted from the chart) 10/25 11:52 11:27 Urine Test ordered. phyllis jl7
--- NOTE | 2021-10-25 13:00 | ER ---
Nurse's Notes [facility] Name: Karen Shah Age: 51 yrs Sex: Female : 1970 Arrival Date: 10/25/2021 Time: 11:09 Bed 6 Private MD: Diagnosis: UTI/ Urinary tract infection, site not specified Presentation: 10/25 11:20 Chief complaint: Patient states: for approx 2 weeks it hurts her to urinate. Patient ap3 also reports haven't had a bowel movement in approx 2 weeks as well. Patient presents to the ED with a large coke that she is drinking. Coronavirus screen: At this time, the client does not indicate any symptoms associated with coronavirus-19. Ebola Screen: No symptoms or risks identified at this time. Initial Sepsis Screen: Does the patient meet any 2 criteria? No. Patient's initial sepsis screen is negative. Does the patient have a suspected source of infection? No. Patient's initial sepsis screen is negative. Risk Assessment: Do you want to hurt yourself or someone else? Patient reports no desire to harm self or others. Onset of symptoms was October 11, 2021. 11:20 Method Of Arrival: Wheelchair ap3 11:20 Acuity: ARIEL 3 ap3 Triage Assessment: 11:23 General: Appears in no apparent distress. Behavior is calm, cooperative, appropriate ap3 for age. Pain: Complains of pain in groin Aggravated by urination. Neuro: Level of Consciousness is awake, alert, obeys commands, Oriented to person, place, time, situation, Appropriate for age. Cardiovascular: Patient's skin is warm and dry. Respiratory: Airway is patent Respiratory effort is even, unlabored. : Reports pain with urination, urgency. 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 - Social history:: Smoking status: Patient reports the use of cigarette tobacco products, smokes one-half pack cigarettes per day. Screenin:24 Abuse screen: Denies threats or abuse. Nutritional screening: No deficits noted. ap3 Tuberculosis screening: No symptoms or risk factors identified. 13:16 Fall Risk Ambulatory Aid- None/Bed Rest/Nurse Assist (0 pts). jl7 Assessment: 11:52 General: Appears in no apparent distress. uncomfortable, Behavior is calm, cooperative, jl7 appropriate for age. Pain: Complains of pain in groin. Neuro: Level of Consciousness is awake, alert, obeys commands, Oriented to person, place, time, situation. Cardiovascular: Patient's skin is warm and dry. Respiratory: Airway is patent Respiratory effort is even, unlabored, Respiratory pattern is regular, symmetrical. : Reports burning with urination, pain with urination. Derm: Skin is pink, warm \T\ dry. 13:00 Reassessment: Patient appears in no apparent distress at this time. No changes from jl7 previously documented assessment. Patient and/or family updated on plan of care and expected duration. Pain level reassessed. Patient is alert, oriented x 3, equal unlabored respirations, skin warm/dry/pink. Vital Signs: 11:20 BP 113 / 79; Pulse 93; Resp 17; Temp 97.5(O); Pulse Ox 98% on R/A; Weight 54.43 kg; ap3 Height 5 ft. 4 in. (162.56 cm); 13:16 BP 119 / 82; Pulse Ox 100% ; tp1 13:16 Pulse 80; Resp 17; jl7 11:20 Body Mass Index 20.60 (54.43 kg, 162.56 cm) ap3 ED Course: 11:09 Patient arrived in ED. as 11:17 Isidro Mcdaniel PA is PHCP. cp 11:17 Wes Marion DO is Attending Physician. cp 11:23 Triage completed. ap3 11:24 Arm band placed on left wrist. ap3 11:33 Saqib Ren, CHIDI is Primary Nurse. jl7 11:52 Patient has correct armband on for positive identification. jl7 11:52 Urine collected: clean catch specimen, cloudy. jl7 13:16 No provider procedures requiring assistance completed. Patient did not have IV access jl7 during this emergency room visit. Administered Medications: 12:12 Drug: Pyridium (phenazopyridine) 200 mg Route: PO; ph 13:12 Follow up: Response: No adverse reaction jl7 13:11 Drug: Rocephin (cefTRIAXone) 1 grams Route: IM; Site: right ventrogluteal; jl7 13:25 Follow up: Response: No adverse reaction jl7 Medication: 11:24 VIS not applicable for this client. ap3 Outcome: 12:59 Discharge ordered by MD. cp 13:16 Discharged to home via wheelchair. jl7 13:16 Condition: stable 13:16 Discharge instructions given to patient, Instructed on discharge instructions, follow up and referral plans. medication usage, Demonstrated understanding of instructions, follow-up care, medications, Prescriptions given X 2. 13:26 Patient left the ED. jl7 Addendum: 10/29/2021 07:38 Addendum: Culture Results: Positive urine culture. No further action required. Bacteria e b sensitive to prescribed antibiotic. Signatures: Sandra Cook Patricia, RN RN ph Violeta, Isidro, ALVARADO PA Saqib Parekh RN RN jl7 Angie Cooper RN RN ap3 Vanessa Kolb Tiffany tp1
[2021-10-25] MEDS ORDERED: CEFTRIAXONE 1000 MG/VIAL ONE (13:07)
[2021-10-25] MEDS ORDERED: LIDOCAINE 1% MPF 2 ML AMPULE ONE (13:08)
[2021-10-25 13:51] VITALS: BP 119/82; O2SAT 100
[2021-10-25 13:52] VITALS: TEMP 97.5
== END 2021-10-25 13:26 | disposition home or self-care (01) ==
LOC: ER 11:06
DX: N39.0 Urinary tract infection, site not specified (principal); E11.9 Type 2 diabetes mellitus without complications; I10 Essential (primary) hypertension; F17.210 Nicotine dependence, cigarettes, uncomplicated; Z95.1 Presence of aortocoronary bypass graft; Z86.73 Personal history of transient ischemic attack (TIA), and cerebral infarction without residual deficits; Z88.5 Allergy status to narcotic agent; Z91.048 Other nonmedicinal substance allergy status
CPT/HCPCS: 81003; 81015; 82947; 87077; 87086; 87088; 87186; 96372; 99283

== ENCOUNTER 2021-11-15 08:58 | Emergency (ER) | payer OTHER ==
--- OUTSIDE RECORDS SUMMARY | 2021-11-15 09:02 | XMS REPORT | Continuity of Care Document ---
:1970 Author Organization [facility] t Address [address] [place] [address] Care Team Providers Name Role Phone Lucas BROWN, A Primary Care Physician Iveth BROWN Attending Clinician Lucas BROWN, Bennie Attending Clinician Payers Payer Name Policy Type Policy Number Effective Date Expiration Date S ource Problems Condition Condition Condition Status Onset Resolution Last Treating Co mments Source Name Details Category Date Date Treatment Clinician Date UTI UTI Disease Active Univers (urinary (urinary 8-20 ity of tract tract 00:00: [place] infection) infection) 00 Me dical Branch Dizziness Dizziness Disease Active Uni vers 8-20 ity of 00:00: [place] 00 Medical Branch Weakness Weakness Disease Active Unive rs 8-20 ity of 00:00: [place] 00 Medical Branch CAD in CAD in Disease Active Univers big sandy big sandy 7-05 ity of artery artery 00:00: [place] 00 Medical Branch Hypoglycem Hypoglycem Disease Active [...] 00:00: [place] involving involving 00 Medi blanquita [place] Branch coronary coronary artery of artery of [place] big [place] heart heart without without angina angina pectoris pectoris PAD PAD Disease Active Univers (periphera (periphera 3-09 it y of l artery l artery 00:00: [place] disease) disease) 00 Medica l Branch Chronic Chronic Disease Active Univers heart heart 3-09 ity of failure failure 00:00: [place] with with 00 Medical preserved preserved Bran ch ejection ejection fraction fraction GARY GRAY Disease Active Overview: Univer s (stress (stress 02-02 Formattin ity o f urinary urinary 00:00: g of this [place] incontinen incontinen 00 note Me sonu ce, ce, might be Branch female) female) different from the original. Added automatic ally from request for surgery [id number] High High Disease Active Univers cholestero cholestero it y of l l [facility] HTN HTN Disease Active Univers (hypertens (hypertens it y of ion) ion) [facility] GERD GERD Disease Active Univers (gastroeso (gastroeso it y of phageal phageal [place] reflux reflux Medical disease) disease) Branch DM DM Disease Active Univers (diabetes (diabetes ity of mellitus) mellitus) [facility] Depression Depression Disease Active U nivers ity of [facility] CVA CVA Disease Active Univers (cerebral (cerebral ity of vascular vascular [place] accident) accident) [facility] Branch CHF CHF Disease Active Univers (congestiv (congestiv it y of e heart e heart [place] failure) failure) Medica l Branch Anxiety Anxiety Disease Active Univers ity of [facility] Angina Angina Disease Active Univers pectoris pectoris ity of [facility] H/O right H/O right Disease Active Uni vers coronary coronary ity of artery artery [place] stent stent Medical placement placement Bran ch Hyperlipid Hyperlipid Disease Active U nivers emia, emia, ity of unspecifie [place]specifie [place] Medical hyperlipid hyperlipid Br anch emia type emia type Essential Essential Disease Active Uni vers hypertensi hypertensi it y of on, benign on, benign [place] [facility] Hx of CABG Hx of [...] - [facility] scular scular St accident) accident) [facility] Migraine Migraine Problem Active Commo n without without Spirit aura and aura and - [facility] without without St status status [facility] migrainosu migrainosu Me dical s, not s, not Center intractabl intractabl e e 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 - [facility] with with St hyperglyce hyperglyce [facility] 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 - [facility] with other with other St specified specified [facility] complicati complicati Me dical on on Center Hx of CABG Hx of CABG Problem Active C ommon Spirit - [facility] Chronic Chronic Problem Active Common pain pain Spirit disorder disorder - [facility] penit[facility] Problem Active Com mon current current Spirit use of use of - [facility] insulin insulin [facility] Neuropathy Neuropathy Problem Active C brannonmon Spirit - [facility] Depression Depression Problem Active C omermelinda with with Spirit anxiety anxiety - [facility] HTN HTN Problem Active Common (hypertens (hypertens Sp kate ion), ion), - [facility]I benign benign [facility] Seizures Seizures Problem Active Commo n Spirit - [facility] Coronary Coronary Problem Active Commo n artery artery Spirit disease disease - [facility] involving involving coronary coronary [facility] bypass bypass Medical graft of graft of [place] big [place] big sandy heart with heart with angina angina pectoris pectoris Dependent Dependent Problem Active Com mon on on Spirit wheelchair wheelchair - [facility] History of History of Problem Active Heath kiser right right Spirit above knee above knee - [facility] amputation amputation [facility] Allergies, Adverse Reactions, Alerts Allergy Allergy Status Severity Reaction(s) Onset Inactive Treating Comm ents Source Name Type Date Date Clinician Ketorola Propensi Active [facility] Univer s c ty to 7-20 ity of Trometha adverse 00:00: [place] mine reaction 00 Medical s Branch Tramadol Propensi Active Hives Univer s ty to 7-20 ity of adverse 00:00: [place] reaction 00 Medical s Branch Toradol Adverse Active Info Not Common Reaction Available [facility] tramadol Adverse Active Info Not Commo n Reaction Available [facility] Social History Social Habit Start Date Stop Date Quantity Comments Source History of tobacco Cigarette Smoker [facility] Exposure to 2021-10-26 2021-11-05 Not sure [facility] SARS-CoV-2 (event) 00:00:00 15:22:00 [facility] Alcohol intake 2021-06-21 2021-06-21 Ex-drinker [facility] 00:00:00 00:00:00 (finding) [facility] Education 2021-01-15 2021-01-15 12 University 00:00:00 00:00:00 [facility] History [facility] 2020-05-08 2020-05-08 99 University o f Alcohol Frequency 00:00:00 00:00:00 [place] M edical Branch History [facility] 2020-05-08 2020-05-08 99 University o f Alcohol Std Drinks 00:00:00 00:00:00 [place] Medical [facility] History SDWI 2020-05-08 2020-05-08 99 [place] o f Alcohol Binge 00:00:00 00:00:00 [place] Medic al Branch Tobacco Comment 2020-04-03 2020-04-03 smoking since 12 Uni versity of 00:00:00 00:00:00 years old [facility] Alcohol Comment 2019-10-11 2019-10-11 rare Universit y of 00:00:00 00:00:00 [facility] Cigarettes smoked 2018-02-21 2018-02-21 Univers ity of current (pack per 00:00:00 00:00:00 [facility] ) - Reported Branch Tobacco use [...] Medication? Clinician (SIG) Name Name jennifer Yes [id number] 1{each} Apply 1 U nivers glucose 5-20 Each to ity of sensor 00:00: skin every [place] (FREESTYLE 00 14 Medical RASHARD 2 (fourteen) Branch SENSOR) Kit days. Dx E11.9 jennifer Yes [id number] 1{each} 1 Each Un cali glucose 5-20 daily. Dx ity of scanning 00:00: E11.9 [place] reader 00 Medical (FREESTYLE Branch RASHARD 2 READER) Misc insulin NPH Yes [id number] 45U inject Univers and regular 5-20 45-55 ity of human 70-30 00:00: Units [place] (NOVOLIN 00 under the Medica l 70/30 U-100 skin 2 Branch INSULIN) (two) 100 unit/mL times (70-30) daily injection before breakfast and dinner. atorvastati Yes 80mg Take 1 Univ ers n 80 mg 5-20 tablet by ity of tablet 00:00: mouth at [place] 00 bedtime. Medical Branch Blood-Gluco Yes [id number] Use 3 Univers se Meter 5-20 times ity of (TRUE 00:00: daily. Dx [place] METRIX 00 E11.9 [facility] GLUCOSE Branch METER) Misc blood sugar Yes [id number] Use 3 Univers diagnostic 5-20 times ity of (TRUE 00:00: daily. Dx [place] METRIX 00 E11.9 [facility] GLUCOSE [place] TEST STRIP) strip GABAPENTIN Yes [id number] TAKE 1 Univers 800 mg 2-25 TABLET BY ity of tablet 00:00: MOUTH [place] 00 THREE Medical TIMES Branch DAILY MIRTAZAPINE 2020-05 Yes [id number] 15mg TAKE 1 Univers 15 mg 2-20 TABLET BY ity of tablet 00:00: MOUTH AT [place] 00 BEDTIME Medical Branch ondansetron Yes [id number] 4mg Take 1 Univers 4 mg 8-06 tablet by ity of disintegrat 00:00: mouth [place] ing tablet 00 every 8 Medica l (eight) Branch hours as needed for Nausea and Vomiting (N/V). aspirin 81 Yes [id number] 81mg Take 1 U nivers mg chewable 7-07 tablet by ity of tablet 00:00: mouth [place] 00 daily. Medical Branch clopidogreL Yes [id number] 75mg Take 1 Univers 75 mg 7-07 tablet by ity of tablet 00:00: mouth [place] 00 daily. Medical Branch ezetimibe Yes [id number] 10mg Take 1 U nivers 10 mg 6-18 tablet by ity of tablet 00:00: mouth [place] 00 daily. Medical Branch furosemide 2020-0 Yes [id number] 1 tablet Univers 20 mg 6-18 02 as needed ity of tablet 00:00: for leg [place] 00 swelling Medical Branch glipiZIDE Yes Type 2 5mg [...] [place] 00 involving bedtime. Medica l [place] Branch coronary artery of [place] heart without angina pectoris glipiZIDE Yes Type [...] [place] 00 involving bedtime. Medica l [place] Branch coronary artery of [place] heart without angina pectoris ezetimibe 2020- No [...] human 70-30 00:00: 04:59 diabetes under the [place] (NOVOLIN 00 :00 mellitus skin 2 Medic [...] human 70-30 00:00: 04:59 diabetes under the [place] (NOVOLIN 00 :00 mellitus skin 2 Medic [...] :00 involving daily for Medi blanquita tablet big sandy 30 days. Branch coronary artery of [place] heart without angina pectoris SITagliptin 2020- No [...] :00 involving daily for Medi blanquita tablet big sandy 30 days. Branch coronary artery of [place] heart without angina pectoris SITagliptin 2020- No Uncontrolle 100mg Take 1 Univers 100 mg 09-07 d type 2 tablet by ity of tablet 00:: 04:59 diabetes mouth with [place] 00 :00 mellitus evening Medical with meal for Branch hyperglycem 30 days. ia insulin NPH 2020- No Uncontrolle 90U inject 90 Univers and regular 09-07-06 d type 2 Units it y of human 70-30 00:00: 00:00 diabetes under the [place] (NOVOLIN 00 :00 mellitus skin 2 Medic [...] Uncontrolle 10mg Take 1 Univers 10 mg 09-07- d type 2 tablet by [...] Medical DAILY WITH Branch MEALS pantoprazol Yes [id number] 40mg Take 1 Univers e 40 mg [...] [place] 00 disease daily. Medical Branch gabapentin 2019-05 Yes Neuropathy 800mg Take 1 Univers 800 mg 2-22 tablet by ity of tablet 00:00: mouth 3 [place] 00 (three) Medical times Branch daily. gabapentin 2019-05 Yes Neuropathy 800mg Take 1 Univers 800 mg 2-22 tablet by ity of tablet 00:00: mouth 3 [place] 00 (three) Medical times Branch daily. clopidogreL [...] as 00 :00 involving bedtime. Medica l big sandy Branch coronary artery of [place] heart without angina pectoris atorvastati 2020- No Coronary 80mg Take 1 Univers n 80 mg 3-20 05-06 artery tablet by ity of tablet 00:00: 00:00 disease mouth at [place] as 00 :00 involving bedtime. Medica l big sandy Branch coronary artery of [place] heart without angina pectoris nitroglycer 2018-05 Yes [id number] 1 tab SL Univers in 0.4 mg [...] Common n Calcium n Calcium Horan Spir it [facility] Lexapro Lexapro Yes Dada 1 tablet Com mon Horan Spirit [facility] Metoprolol Metoprolol Yes Dada 1 tablet Common Tartrate Tartrate Horan with food S pirit [facility] Ranexa Ranexa Yes Dada 1 tablet Commo n Horan [facility] Insulin Insulin Yes Dada 60 units Com mon Aspart Prot Aspart Prot Horan BID Spirit & Aspart & Aspart [facility] Aspirin Aspirin Yes Dada 1 tablet Com mon Horan [facility] Gabapentin Gabapentin Yes Dada 1 tablet [facility] Furosemide Furosemide Yes Dada 1 tablet Common Horan [facility] Duloxetine Duloxetine Yes Dada 1 capsule Common HCl HCl Horan [facility] Xanax Xanax Yes Dada 1 tablet Common Horan [facility] Clopidogrel Clopidogrel Yes Dada 1 tablet Common Bisulfate Bisulfate Horan Spir [facility] Metformin Metformin Yes Dada 1 tablet Common HCl HCl Horan with meals [facility] Pantoprazol Pantoprazol Yes Dada 1 tablet Common e Sodium e Sodium [facility] Klor-Con Klor-Con Yes Dada 1 tablet C ommon M10 M10 Horan with food [facility] Duloxetine Duloxetine Yes Dada 1 capsule Common HCl HCl Horan [facility] Levetiracet Levetiracet Yes Dada 1 tablet Common am [facility] Dana Dana Yes Dada 1 tablet Common Horan as needed [facility] Lexapro Lexapro Yes Dada 1 tablet Com mon [facility] Atorvastati Atorvastati Yes Dada 1 tablet Common n Calcium n Calcium Horan Spir [facility] Clopidogrel Clopidogrel Yes Dada 1 tablet Common Bisulfate Bisulfate Horan Spir [facility] Furosemide Furosemide Yes Dada 1 tablet Common Horan [facility] Immunizations Ordered Filled Immunization Date Status Comments Sour e Immunization Name Name SARS-COV-2 COVID-19 2021-01-17 [facility]:00:00 [facility] Vital Signs Vital Name Observation Time Observation Value Comments Source Heart rate 2020-10-01 20:20:00 60 /min [facility] [place] [facility] Systolic blood 2020-10-01 20:20:00 120 mm[Hg] Univer [facility]ity [facility] [place] [facility] pressure Medical Branch Diastolic blood 2020-10-01 20:20:00 80 mm[Hg] Unive rsity of [place] pressure Medical Branch Heart rate 2020-10-01 20:20:00 60 /min [facility] [place] [facility] Systolic blood 2020-10-01 20:20:00 120 mm[Hg] Univer sity of [place] pressure Medical Branch Diastolic blood 2020-10-01 20:20:00 80 mm[Hg] [facility] Procedures This patient has no known procedures. Plan of Care Planned Activity Planned Date Details Comments Source Future Scheduled 2022 Screening for [facility] [place] [facility] Test 00:00:00 malignant neoplasm of Medica l Branch colon (procedure) [code = 810785619] Future Scheduled 2022 Screening for [facility] [place] [facility] Test 00:00:00 malignant neoplasm of Medica l Branch colon (procedure) [code = 136940217] Future Scheduled 2021-09-07 Creatinine [facility] [place] [facility] Test 00:00:00 measurement Medical Branch (procedure) [code = 33339894] Future Scheduled 2021-09-07 Creatinine [facility] [place] Test 00:00:00 measurement Medical Branch (procedure) [code = 04357774] Future Scheduled 2021-09-05 Calculated low [facility] y [facility] [place] Test 00:00:00 density lipoprotein Medical Branch cholesterol level (procedure) [code = 813189422] Future Scheduled 2021-09-05 Calculated low Universit y of [place] Test 00:00:00 density lipoprotein Medical Branch cholesterol level (procedure) [code = 263113716] Future Scheduled 2021-05-08 Depression screening Uni versity of [place] Test 00:00:00 (procedure) [code = Medical Branch [id number]] Future Scheduled 2021-05-08 Depression screening Uni versity of [place] Test 00:00:00 (procedure) [code = Medical Branch [id number]] Future Scheduled 2021-03-07 Hemoglobin A1c [facility] [place] Test 00:00:00 measurement Medical Branch (procedure) [code = 86870903] Future Scheduled 2021-03-07 Hemoglobin A1c [facility] [place] Test 00:00:00 measurement Medical Branch (procedure) [code = 88131480] Future Scheduled 2021-01-27 INFLUENZA VACCINE [facility]iver [facility]ity of [place] Test 00:00:00 (Season Ended) [code Medical Branch = INFLUENZA VACCINE (Season Ended)] Future Scheduled 2021-01-27 [facility] ([facility] Ended) [code Medical Branch = INFLUENZA VACCINE (Season Ended)] Future Scheduled 2020-10-31 Screening for [facility] Test 00:00:00 malignant neoplasm of Medica l Branch breast (procedure) [code = 004260618] Future Scheduled 2020-10-31 Screening for [facility] Test 00:00:00 malignant neoplasm of Medica l Branch breast (procedure) [code = 316419439] Future Scheduled 2020-09-25 Screening for [facility] Test 00:00:00 malignant neoplasm of Medica l Branch cervix (procedure) [code = 529601674] Future Scheduled 2020-09-25 Screening for [facility] Test 00:00:00 malignant neoplasm of Medica l Branch cervix (procedure) [code = 775645496] Future Scheduled 2020-05-10 Diabetic foot [facility] Test 00:00:00 examination Medical Branch (regime/therapy) [code = 469412850] Future Scheduled 2020-05-10 Diabetic foot [facility] Test 00:00:00 examination Medical Branch (regime/therapy) [code = 432140884] Future Scheduled 2019-09-01 Microalbumin [facility] Test 00:00:00 measurement, urine, Medical Branch quantitative (procedure) [code = 221677994] Future Scheduled 2019-09-01 Microalbumin [facility] Test 00:00:00 measurement, urine, Medical Branch quantitative (procedure) [code = 622110258] Future Scheduled 1991 [facility]ap,[facility] Td [facility] Vaccines (1 - Tdap) Medical Branch [code = DTaP,Tdap,and Td Vaccines (1 - Tdap)] Future Scheduled 1991 DTaP,Tdap,and Td Univers ity [facility] [place] [facility] Test 00:00:00 Vaccines (1 - Tdap) Medical Branch [code = DTaP,Tdap,and Td Vaccines (1 - Tdap)] Future Scheduled 1990 [facility] (procedure) [code = Medical Branch [id number]] Future Scheduled 1990 Hepatitis C screening Un [facility] [place] Test 00:00:00 (procedure) [code = Medical Branch [id number]] Future Scheduled 1988 SARS-CoV-2 (COVID-19) Un [facility]vers[facility] [place] Test 00:00:00 Vaccine (1) [code = Medical Branch SARS-CoV-2 (COVID-19) Vaccine (1)] Future Scheduled 1988 SARS-CoV-2 (COVID-19) Un [facility] [place] Test 00:00:00 Vaccine (1) [code = Medical Branch SARS-CoV-2 (COVID-19) Vaccine (1)] Future Scheduled 1982 Examination of retina [facility] [place] Test 00:00:00 (procedure) [code = Medical Branch [id number]] Future Scheduled 1982 Examination of retina [facility] [place] Test 00:00:00 (procedure) [code = Medical Branch [id number]] Future Scheduled 1978 PNEUMOCOCCAL 0-64 Univer sity [...] Date/Time Type Type Clinicians Facility Department ID 2021-11-10 2021-11-10 Telephone Katie Lazaro [facility] [id number] Univers 00:00:00 00:00:00 HEALTH [id number] it y of [place] [id number] [place] as DILLAN?BLEA [phone] Oh sonu BURNS [address] Branch MEDICAL OFFICE BUILDING 2020-10-01 2020-10-01 Office Lucas [facility] [id number] 15:08:27 16:09:31 Visit [facility] [id number] [place] [id number] [facility] [phone] nal [address] 2018-06-27 2018-06-27 [facility] [id number] Common 11:57:00 11:57:[address] [facility] 2018-06-15 2018-06-15 [facility] [id number] Common 16:24:00 16:24:[address] [facility] 2018-06-13 2018-06-13 [facility] [id number] Common 13:30:00 13:30:[address] [facility] 2017-12-12 2017-12-12 [facility] [id number] Common 13:22:00 13:22:[address] [facility] 2017-11-20 2017-11-20 [facility] [id number] Common 10:30:00 10:30:[address] [facility] 2017-11-02 2017-11-02 [facility] [id number] Common 15:15:00 15:15:[address] [facility] Results This patient has no known results.
[2021-11-15 09:52] LABS: Urine Blood 2+ (Negative); Urine Glucose 3+ (Negative); Urine Protein 2+ (Negative); Urine Specific Gravity 1.015 (1.005-1.030)
[2021-11-15] MEDS ORDERED: HYDROCODONE/APAP 10/325 TAB ONE (09:59)
[2021-11-15] MEDS ORDERED: PHENAZOPYRIDINE 100MG TAB PO ONE (09:59)
[2021-11-15] MEDS ORDERED: ONDANSETRON 4 MG/2 ML VIAL ONE (10:04)
[2021-11-15] MEDS ORDERED: MORPHINE 4 MG/ML SYR ONE ×2 (10:04→13:03)
[2021-11-15 10:21] LABS: Absolute Lymphocytes (CBC) 1.3 K/uL (0.7-4.9); Hematocrit 46.1 % (36.0-45.0); Lymphocytes % 7.8 % (15.3-44.8); MPV 8.4 fL (7.6-11.3); RBC Red Blood Cell Count 5.18 M/uL (3.86-4.86)
[2021-11-15 10:42] LABS: Albumin 3.1 g/dL (3.4-5.0); Bilirubin Total 0.3 mg/dL (0.2-1.0); Potassium 3.6 mmol/L (3.5-5.1); Protein, Total 7.5 g/dL (6.4-8.2)
[2021-11-15] MEDS ORDERED: INSULIN -REGULAR HUMAN 50 UNIT/0.5 ML ML ONE (13:00)
[2021-11-15] MEDS ORDERED: CEFTRIAXONE 1000 MG/VIAL ONE (13:00)
[2021-11-15] MEDS ORDERED: NA CHLORIDE 0.9% 1,000 ML ONE (13:01)
--- NOTE | 2021-11-15 13:48 | EDPHYS ---
Physician Documentation [facility] Name: Karen Shah Age: 51 yrs Sex: Female : 1970 Arrival Date: 11/15/2021 Time: 09:00 Bed 20 Private MD: ED Physician Isidro Villa HPI: 11/15 09:02 This 51 yrs old Female presents to ER via Wheelchair with complaints of Pain jmm With Urination. 09:02 The patient presents with urinary symptoms, dysuria. Onset: The symptoms/episode jmm began/occurred gradually. This is a 51 year old female with a history of CAD, CVA, DM, HLP that presents to the ED with complaints of painful urination beginning last night. Denies fever, vomiting, back pain. Patient has had similar episodes in the past. . 09:02 Modifying factors: The symptoms are alleviated by nothing, the symptoms are aggravated jmm by nothing. 09:02 Associated signs and symptoms: Pertinent negatives: fever. jmm Historical: - Allergies: 09:14 Adhesives; [place] 09:14 Toradol; [place] 09:14 tramadol; [place] - PMHx: 09:14 angina pectoris; CAD; CVA; Diabetes - IDDM; High Cholesterol; Hypertension; Myocardial lundberg infarction; Seizures; - PSHx: 09:14 CABG x 2; section; Ligation of fallopian tube; right AKA; Tonsillectomy; l[place] - Immunization history:: Adult Immunizations. - Social history:: Smoking status: Patient reports the use of cigarette tobacco products, smokes one-half pack cigarettes per day. ROS: 09:02 Constitutional: Negative for fever, chills, and weight loss, Cardiovascular: Negative jmm for chest pain, palpitations, and edema, Respiratory: Negative for shortness of breath, cough, wheezing, and pleuritic chest pain. 09:02 : Positive for urinary symptoms. 09:02 All other systems are negative. Exam: 09:02 Constitutional: This is a well developed, well nourished patient who is awake, alert, jmm and in no acute distress. Head/Face: atraumatic. Eyes: EOMI, no conjunctival erythema appreciated ENT: Moist Mucus Membranes Neck: Trachea midline, Supple Chest/axilla: Normal chest wall appearance and motion. Cardiovascular: Regular rate and rhythm. No edema appreciated Respiratory: Normal respirations, no respiratory distress appreciated 09:02 Back: Normal ROM 09:02 Abdomen/GI: Inspection: abdomen appears normal, Bowel sounds: normal. 09:02 Skin: Appearance: Color: normal in color. 09:02 Neuro: Motor: is normal. 09:02 Psych: Behavior/mood is pleasant, cooperative. Vital Signs: 09:08 Pulse 128; Resp 18; Temp 98.8; Pulse Ox 98% on R/A; Weight 54.43 kg (R); Height 5 ft. 4 mb7 in. (162.56 cm) (R); 09:09 BP 183 / 108; mb7 10:34 BP 135 / 84; Pulse 94; Resp 17; Pulse Ox 100% on R/A; lundberg 11:44 BP 139 / 85; Pulse 89; Resp 17; Pulse Ox 99% ; [place] 13:39 BP 125 / 79; Pulse 94; Resp 18; Pulse Ox 99% on R/A; [place] 09:08 Body Mass Index 20.60 (54.43 kg, 162.56 cm) [facility] MDM: 09:02 Patient medically screened. [facility] 12:23 Data reviewed: vital signs, nurses notes. Counseling: I had a detailed discussion with [facility] the patient and/or guardian regarding: the historical points, exam findings, and any diagnostic results supporting the discharge/admit diagnosis, lab results, the need for outpatient follow up, to return to the emergency department if symptoms worsen or persist or if there are any questions or concerns that arise at home. 11/15 09:08 Order name: Urine Culture [facility] 11/15 09:10 Order name: CBC with Diff; Complete Time: 10:28 [facility] 11/15 09:10 Order name: CMP; Complete Time: 10:47 [facility] 11/15 09:10 Order name: Lactate; Complete Time: 10:47 [facility] 11/15 09:10 Order name: Blood Culture Adult (2) [facility] 11/15 09:52 Order name: Urine Dipstick-Ancillary; Complete Time: 09:56 [facility] 11/15 09:08 Order name: Urine Dipstick-Ancillary (obtain specimen); Complete Time: 10:00 [facility] 11/15 09:10 Order name: Saline Lock; Complete Time: 09:44 [facility] 11/15 09:42 Order name: Labs - recollect needed: all labs; Complete Time: 10:00 iw Administered Medications: 10:00 Not Given (Patient Refused): Pyridium (phenazopyridine) 200 mg PO once l[place] 10:00 Not Given (Patient Refused): [place] (HYDROcodone-acetaminophen) 10 mg-325 mg 1 tabs PO lundberg once 10:00 Drug: morphine 4 mg Route: IVP; Infused Over: 4 mins; Site: left forearm; [place] 10:00 Follow up: Response: No adverse reaction [place] 10:01 Drug: Zofran (Ondansetron) 4 mg Route: IVP; Site: left forearm; [place] 10:01 Follow up: Response: No adverse reaction [place] 13:15 Drug: Rocephin (cefTRIAXone) 1 grams Route: IV; Rate: calculated rate; Site: left lundberg forearm; 13:22 Drug: Insulin Regular Human 10 units {Co-Signature: faviola (Yola Sharma RN).} Route: IVP; lundberg Site: left forearm; 13:23 Follow up: Response: No adverse reaction [place] 13:23 Drug: NS 0.9% 1000 ml Route: IV; Rate: 1 bolus; Site: left forearm; lundberg Disposition Summary: 11/15/21 13:47 Discharge Ordered Location: Home [facility] Condition: Stable [facility] Diagnosis - UTI/ Urinary tract infection, site not specified [facility] Followup: jmm - With: Private Physician - When: 2 - 3 days - Reason: Recheck today's complaints, Continuance of care, Re-evaluation by your physician Discharge Instructions: - Discharge Summary Sheet [facility] - Urinary Tract Infection, Adult [facility] Forms: - Medication Reconciliation Form [facility] - Thank You Letter [facility] - Antibiotic Education [facility] - Prescription Opioid Use [facility] Prescriptions: - cefpodoxime 200 mg Oral Tablet - take 1 tablet by ORAL route every 12 hours with food; 20 tablet; Refills: 0, [facility] Product Selection Permitted Signatures: Dispatcher [employer] Isidro Good MD MD cha Mickail, Joel, PA PA jmm Williams, Irene, RN RN iw Au-Stager, Heather, RN RN ha Whitney Wood RN ww
--- NOTE | 2021-11-15 13:48 | ER ---
Nurse's Notes [facility] Name: Karen Shah Age: 51 yrs Sex: Female : 1970 Arrival Date: 11/15/2021 Time: 09:00 Bed 20 Private MD: Diagnosis: UTI/ Urinary tract infection, site not specified Presentation: 11/15 09:14 Chief complaint: Patient states: painful urination. Coronavirus screen: Vaccine status: [place] Patient reports receiving the 2nd dose of the covid vaccine. Ebola Screen: Patient denies travel to an Ebola-affected area in the 21 days before illness onset. Initial Sepsis Screen: Does the patient meet any 2 criteria? RR > 20 per min. HR > 90 bpm. Does the patient have a suspected source of infection? Yes: Dysuria/Frequency/Urgency/UTI. Risk Assessment: Do you want to hurt yourself or someone else? Patient reports no desire to harm self or others. Onset of symptoms was November 15, 2021. 09:14 Method Of Arrival: Wheelchair [place] 09:14 Acuity: ARIEL 3 lund[place] Triage Assessment: 09:14 General: Appears uncomfortable, Behavior is cooperative, anxious. Pain: Complains of lundberg pain in abdomen and pelvis. Historical: - Allergies: 09:14 Adhesives; [place] 09:14 Toradol; [place] 09:14 tramadol; [place] - PMHx: 09:14 angina pectoris; CAD; CVA; Diabetes - IDDM; High Cholesterol; Hypertension; Myocardial l[place] infarction; Seizures; - PSHx: 09:14 CABG x 2; section; Ligation of fallopian tube; right AKA; Tonsillectomy; l[place] - Immunization history:: Adult Immunizations. - Social history:: Smoking status: Patient reports the use of cigarette tobacco products, smokes one-half pack cigarettes per day. Screenin:15 Abuse screen: Denies threats or abuse. Denies injuries from another. Nutritional lundberg screening: No deficits noted. Tuberculosis screening: No symptoms or risk factors identified. Fall Risk Gait- Normal/Bed Rest/Wheelchair (0 pts). Assessment: 09:16 : Reports burning with urination, pain urgency, urinary frequency. lundberg Vital Signs: 09:08 Pulse 128; Resp 18; Temp 98.8; Pulse Ox 98% on R/A; Weight 54.43 kg (R); Height 5 ft. 4 mb7 in. (162.56 cm) (R); 09:09 BP 183 / 108; mb7 10:34 BP 135 / 84; Pulse 94; Resp 17; Pulse Ox 100% on R/A; lundberg 11:44 BP 139 / 85; Pulse 89; Resp 17; Pulse Ox 99% ; l[place] 13:39 BP 125 / 79; Pulse 94; Resp 18; Pulse Ox 99% on R/A; [place] 09:08 Body Mass Index 20.60 (54.43 kg, 162.56 cm) mb7 ED Course: 09:00 Patient arrived in ED. am2 09:02 Yosi Almodovar PA is PHCP. [facility] 09:02 Isidro Villa MD is Attending Physician. [facility] 09:04 Rissa Dang, CHIDI is Primary Nurse. [place] 09:09 Patient has correct armband on for positive identification. Bed in low position. Call mb7 light in reach. Side rails up X 1. Door closed. Noise minimized. 09:10 Warm blanket given. [facility] 09:14 Triage completed. [place] 09:15 No provider procedures requiring assistance completed. [place] 09:16 Arm band placed on. [place] 09:44 Blood Culture Adult (2) Sent. [place] 09:44 Lactate Sent. [place] 10:11 Lab(s) recollected, by me, sent to lab. Inserted saline lock: 22 gauge in right dh3 forearm, using aseptic technique. Blood collected. 14:15 IV discontinued, intact. lundberg Administered Medications: 10:00 Not Given (Patient Refused): Pyridium (phenazopyridine) 200 mg PO once [place] 10:00 Not Given (Patient Refused): [place] (HYDROcodone-acetaminophen) 10 mg-325 mg 1 tabs PO lundberg once 10:00 Drug: morphine 4 mg Route: IVP; Infused Over: 4 mins; Site: left forearm; [place] 10:00 Follow up: Response: No adverse reaction [place] 10:01 Drug: Zofran (Ondansetron) 4 mg Route: IVP; Site: left forearm; [place] 10:01 Follow up: Response: No adverse reaction [place] 13:15 Drug: Rocephin (cefTRIAXone) 1 grams Route: IV; Rate: calculated rate; Site: left lundberg forearm; 13:22 Drug: Insulin Regular Human 10 units {Co-Signature: ww (Yola Wood RN).} Route: IVP; lundberg Site: left forearm; 13:23 Follow up: Response: No adverse reaction [place] 13:23 Drug: NS 0.9% 1000 ml Route: IV; Rate: 1 bolus; Site: left forearm; lundberg Medication: 09:16 VIS not applicable for this client. lundberg Outcome: 13:47 Discharge ordered by MD. moreno 14:15 Discharged to home via wheelchair. [place] 14:15 Condition: good 14:15 Discharge instructions given to patient, Prescriptions given X 1. 14:16 Patient left the ED. [place] Signatures: Yosi Almodovar PA PA jmm Moreno, Amanda am2 Herrera, Deanna 3 Thea Luo 7 Rissa Dang RN RN lundberg Yola salmeron
[2021-11-15 14:27] VITALS: O2SAT 99
[2021-11-15 14:29] VITALS: BP 125/79
[2021-11-15 14:32] VITALS: TEMP 98.8
== END 2021-11-15 14:16 | disposition home or self-care (01) ==
LOC: ER 08:58
DX: N39.0 Urinary tract infection, site not specified (principal)
CPT/HCPCS: 87040 ×2; 87088; 85025; 87086; 36415; 83605; 81003; 80053; J1815; J7030; J2405; 96374; 96375; 99284

== ENCOUNTER 2022-01-10 20:05 | Emergency (ER) | payer OTHER ==
--- OUTSIDE RECORDS SUMMARY | 2022-01-10 20:09 | XMS REPORT | Continuity of Care Document ---
:1970 Author Organization [facility] t Address [address] [place] [address] Care Team Providers Name Role Phone Dev Zavala MD Primary Care Physician [phone] ANYA VILLEGAS Attending Clinician Unavailable NEO KNUTSON Attending Clinician Unavailable NEO KNUTSON Attending Clinician Unavailable FABBY RIVERA Attending Clinician Unavailable Fabby Rivera DO Attending Clinician Belen Padilla Attending Clinician BELEN ASTORGA Attending Clinician Unavailable Doctor Unassigned, [place] Attending Clinician Unavailable Dev Zavala MD Attending Clinician Payers Payer Name Policy Type Policy Number Effective Date Expiration Date Vero neal MEDICARE PART A [id number] 2017 \\T\\ B 00:00:00 Problems Condition Condition [...] Active Unive rs 8-20 ity of 00:00: [place] 00 Medical Branch CAD in CAD in Disease Active Univers tribe tribe 7-05 ity of artery artery 00:00: [place] 00 Medical Branch Hypoglycem Hypoglycem Disease Active U nivers ia ia 6-11 ity of 00:00: [place] [facility] 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 5-06 it y of on on 00:00: [place] [facility] Poor Poor Disease Active Univers appetite appetite 5-06 ity of 00:00: [place] [facility] Hypoalbumi Hypoalbumi Disease Active U nivers nemia nemia 5-06 ity of 00:00: [place] [facility] Hyperglyce Hyperglyce Disease Active U nivers filomena filomena 4-11 ity of 00:00: [place] [facility] Branch Complicate Complicate Disease Active U [...] 00 Medical Branch Osteoarthr Osteoarthr Disease Active 2019- U nivers itis of itis of 2-16 ity of left hip, left hip, 00:00: Nat s unspecifie unspecifie 00 Me dical d d Branch osteoarthr osteoarthr itis type itis type Obesity Obesity Disease Active Univers (BMI (BMI 3-16 ity of 30-39.9) 30-39.9) 00:00: [place] 00 Medical Branch Chest pain Chest pain Disease Active 2020- U nivers 3-16 ity of 00:00: [place] 00 Medical Branch Coronary Coronary Disease Active Unive rs artery artery 3-09 ity of disease disease 00:00: [place] involving involving 00 Medi [place] tribe tribe Branch coronary coronary artery of artery of tribe tribe heart heart without without angina angina pectoris pectoris PAD PAD Disease Active 2019- Univers (periphera (periphera 3-09 it y of l artery l artery 00:00: [place] disease) disease) 00 Medica l Branch Chronic Chronic Disease Active 2019- Univers heart heart 3-09 ity of failure failure 00:00: [place] with with 00 Medical preserved preserved Bran ch ejection ejection fraction fraction GARY GARY Disease Active Overview: Univer s (stress (stress 02-02 Formattin ity o f urinary urinary 00:00: g of this [place] incontinen incontinen 00 note Me dical ce, ce, might be Branch female) female) different from the original. Added automatic ally from request for surgery [id number] High High Disease Active Univers cholestero cholestero it y of l l [facility] [place] [facility] HTN HTN Disease Active Univers (hypertens (hypertens it y of ion) ion) [facility] [place] [facility] GERD GERD Disease Active Univers (gastroeso (gastroeso it y of phageal phageal [place] reflux reflux Medical disease) disease) Branch DM DM Disease Active Univers (diabetes (diabetes ity of mellitus) mellitus) [facility] Depression Depression Disease Active U nivers ity [facility] CVA CVA Disease Active Univers (cerebral (cerebral ity of vascular vascular [place] accident) accident) [facility] Branch CHF CHF Disease Active Univers (congestiv (congestiv it y of e heart e heart [place] failure) failure) Medica l Branch Anxiety Anxiety Disease Active Univers ity of [facility] [place] [facility] Angina Angina Disease Active Univers pectoris pectoris ity [facility] H/O right H/O right Disease Active Uni [...] y [facility], benign [facility] Hx of CABG Hx of CABG Disease Active U nivers ity [facility] Migraines Migraines Disease Active Uni vers ity of [facility] [place] [facility] Seizures Seizures Disease Active Unive rs ity [facility] Unilateral Unilateral Disease Active U nivers AKA, right AKA, right it y of [facility] [place] [facility] History of History of Problem Active C ommon CVA CVA Spirit (cerebrova (cerebrova - [facility] scular scular [facility] accident) accident) [facility] Migraine Migraine Problem Active Commo n without without Spirit aura and aura and - [facility] without without St status status [facility] migrainosu Me dical s, not s, not Center intractabl intractabl e e 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 - 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 current Spirit use of use of [facility] insulin insulin [facility] Neuropathy Neuropathy Problem Active C ommon [facility] Depression Depression Problem Active C ommon with with Spirit anxiety anxiety - [facility] HTN HTN Problem Active Common (hypertens (hypertens Sp kate ion), ion), - [facility] benign benign [facility] Seizures Seizures Problem Active Commo n [facility] Coronary Coronary Problem Active Commo n artery artery Spirit disease disease - [facility] involving involving coronary coronary [facility] bypass bypass Medical graft of graft of [place] tribe tribe heart with heart with angina angina pectoris pectoris Dependent Dependent Problem Active Com mon on on Spirit wheelchair wheelchair - [facility] History of History of Problem Active C ommon right right Spirit above knee above knee - [facility] amputation amputation [facility] Allergies, Adverse Reactions, Alerts Allergy Allergy [...] ity of 00:00: [place] 00 Medical Branch tramadol Adverse Active Info Not Commo n Reaction Available [facility] Toradol Adverse Active Info Not Common Reaction Available Spiri t - [facility] Social History Social Habit Start Date Stop Date Quantity Comments Source History of tobacco Cigarette Smoker University of use [facility] [place] [facility] Exposure to 2021-11-12 2021-11-22 Not sure University of SARS-CoV-2 (event) 00:00:00 14:22:00 [facility] [place] [facility] Alcohol intake 2021-06-21 2021-06-21 Ex-drinker [facility] 00:00:00 00:00:00 (finding) [facility] [place] [facility] Education 2021-01-15 2021-01-15 12 [facility] 00:00:00 00:00:00 [facility] Branch History SDOH 2020-05-08 2020-05-08 99 [place] o f Alcohol Frequency 00:00:00 00:00:00 [facility] [place] [facility] Branch History SDOH 2020-05-08 2020-05-08 99 [place] o f Alcohol Std Drinks 00:00:00 00:00:00 [facility] [place] [facility] History [facility] 2020-05-08 2020-05-08 99 [place] o f Alcohol Binge 00:00:00 00:00:00 [facility] al Branch Cigarettes smoked 2020-04-03 2020-04-03 Univers ity of current (pack per 00:00:00 00:00:00 [facility] ) - Reported Branch Tobacco use and 2020-04-03 2020-04-03 Smokeless Universit y of exposure 00:00:00 00:00:00 tobacco non-user [facility] dical [place] Tobacco Comment 2020-04-03 2020-04-03 smoking since 12 Uni versity of 00:00:00 00:00:00 years old [facility] [place] [facility] Alcohol Comment 2019-10-11 2019-10-11 rare Universit y of 00:00:00 00:00:00 [facility] [place] [facility] Sex [birth year] At [birth year] Universit y of 00:00:00 00:00:00 [facility] [place] [facility] Smoking Status Start Date Stop Date Source Smokes tobacco daily 2020-04-03 00:00:00 Univers ity of [facility] [place] [facility] Medications Ordered Filled Start Stop Current Ordering Indication Dosage Frequency Signature Comments Components Source Medication Medication Date Date Medication? Clinician (SIG) Name Name insulin 2021- No 10U 10 Units, Univ ers regular 11-22 Slow IV ity of human 22:30: 21:59 Carlyle Flores (HUMULIN R) 00 :00 ONCE, 1 Medic al injection dose, On Branch 10 Units 11/22/21 at 1730, Routine NaCl 0.9% 1000mL at 999 Uni vers (NS) bolus 11-22 06-27 mL/hr, ity of infusion 22:30: 23:20 1,000 mL, [place] as 1,000 mL 00 :00 IV Medical Infusion, Branch ONCE, 1 dose, On 11/22/21 at 1730, TRANG flash Yes [id number] 1{each} Apply 1 U nivers glucose 5-20 Each to ity of sensor 00:00: skin every [place] (FREESTYLE 00 14 Medical RASHARD 2 (fourteen) Branch SENSOR) Kit days. Dx E11.9 flash Yes [id number] 1{each} 1 Each Un cali glucose 5-20 daily. Dx ity of scanning 00:00: E11.9 [place] reader 00 Medical (FREESTYLE Branch RASHARD 2 READER) Misc insulin NPH Yes [id number] 45U inject Univers and regular 5-20 45-55 ity of human 70-30 00:00: Units [place] (NOVOLIN 00 under the Medica l 70/30 U-100 skin 2 Branch INSULIN) (two) 100 unit/mL times (70-30) daily injection before breakfast and dinner. atorvastati Yes 80mg Take 1 Univ ers n 80 mg 5-20 tablet by ity of tablet 00:00: mouth at [place] 00 bedtime. Medical Branch Blood-Gluco Yes [id number] Use 3 Univers se Meter 5-20 times ity of (TRUE 00:00: daily. Dx [place] METRIX 00 E11.9 Medical GLUCOSE Branch METER) Mis blood sugar Yes [id number] Use 3 Univers diagnostic 5-20 times ity of (TRUE 00:00: daily. Dx [place] METRIX 00 E11.9 Medical GLUCOSE Branch TEST STRIP) strip flash Yes [id number] 1{each} Apply 1 U nivers glucose 5-20 Each to ity of sensor 00:00: skin every [place] (FREESTYLE 00 14 Medical RASHARD 2 (fourteen) Branch SENSOR) Kit days. Dx E11.9 flash 2022-0 Yes [id number] 1{each} 1 Each Un cali glucose 5-20 daily. Dx ity of scanning 00:00: E11.9 [place] reader 00 Medical (FREESTYLE Branch RASHARD 2 READER) Misc insulin NPH Yes [id number] 45U inject Univers and regular 5-20 45-55 ity of human 70-30 00:00: Units (NOVOLIN 00 under the Medica l 70/30 U-100 skin 2 Branch INSULIN) (two) 100 unit/mL times (70-30) daily injection before breakfast and dinner. atorvastati Yes 80mg Take 1 Univ ers n 80 mg 5-20 tablet by ity of tablet 00:00: mouth at [place] 00 bedtime. Medical Branch Blood-Gluco Yes [id number] Use 3 Univers se Meter 5-20 times ity of (TRUE 00:00: daily. Dx [place] METRIX 00 E11.9 Medical GLUCOSE Branch METER) Misc blood sugar Yes [id number] Use 3 Univers diagnostic 5-20 times ity of (TRUE 00:00: daily. Dx [place] METRIX 00 E11.9 Medical GLUCOSE Branch TEST STRIP) strip flash 0 Yes [id number] 1{each} Apply 1 U nivers glucose 5-20 Each to ity of sensor 00:00: skin every [place] (FREESTYLE 00 14 Medical RASHARD 2 (fourteen) Branch SENSOR) Kit days. Dx E11.9 flash 2021-0 Yes [id number] 1{each} 1 Each Un cali glucose 5-20 daily. Dx ity of scanning 00:00: E11.9 [place] reader 00 Medical (FREESTYLE Branch RASHARD 2 READER) Misc insulin NPH Yes [id number] 45U inject Univers and regular 5-20 45-55 ity of human 70-30 00:00: Units (NOVOLIN 00 under the Medica l 70/30 U-100 skin 2 Branch INSULIN) (two) 100 unit/mL times (70-30) daily injection before breakfast and dinner. atorvastati Yes 80mg Take 1 Univ ers n 80 mg 5-20 tablet by ity of tablet 00:00: mouth at [place] 00 bedtime. Medical Branch Blood-Gluco 2022-0 Yes [id number] Use 3 Univers se Meter 5-20 times ity of (TRUE 00:00: daily. Dx [place] METRIX 00 E11.9 Medical GLUCOSE Branch METER) Misc blood sugar 2021-0 Yes [id number] Use 3 Univers diagnostic 5-20 times ity of (TRUE 00:00: daily. Dx [place] METRIX 00 E11.9 Medical GLUCOSE Branch TEST STRIP) strip GABAPENTIN 2021-0 Yes [id number] TAKE 1 Univers 800 mg 2-25 TABLET BY ity of tablet 00:00: MOUTH [place] THREE Medical TIMES Branch DAILY GABAPENTIN 2021-0 Yes [id number] TAKE 1 Univers 800 mg 2-25 TABLET BY ity of tablet 00:00: MOUTH [place] THREE Medical TIMES Branch DAILY GABAPENTIN 2021-0 Yes [id number] TAKE 1 Univers 800 mg 2-25 TABLET BY ity of tablet 00:00: [facility] THREE Medical TIMES Branch DAILY MIRTAZAPINE 2020-1 Yes [id number] 15mg TAKE 1 Univers 15 mg 2-20 TABLET BY ity of tablet 00:00: [address] [facility] Branch MIRTAZAPINE 2020-1 Yes [id number] 15mg TAKE 1 Univers 15 mg 2-20 TABLET BY ity of tablet 00:00: MOUTH AT [place] [address] BEDTIME Medical Branch MIRTAZAPINE 2020-1 Yes [id number] 15mg TAKE 1 Univers 15 mg 2-20 TABLET BY ity of tablet 00:00: [address]TH [address] Branch ondansetron 2020-0 Yes [id number] 4mg Take 1 Univers 4 mg 8-06 tablet by ity of disintegrat 00:00: mouth [place] ing tablet 00 every 8 Medica l (eight) Branch hours as needed for Nausea and Vomiting (N/V). ondansetron 2020-0 Yes [id number] 4mg Take 1 Univers 4 mg 8-06 tablet by ity of disintegrat 00:00: mouth [place] ing tablet 00 every 8 Medica l (eight) Branch hours as needed for Nausea and Vomiting (N/V). ondansetron 2020-0 Yes [id number] 4mg Take 1 Univers 4 mg 8-06 tablet by ity of disintegrat 00:00: mouth [place] ing tablet 00 every 8 Medica l (eight) Branch hours as needed for Nausea and Vomiting (N/V). aspirin 81 2020-0 Yes [id number] 81mg Take 1 U nivers mg chewable 7-07 tablet by ity of tablet 00:00: mouth [place] 00 daily. Medical Branch clopidogreL 2020-0 Yes [id number] 75mg Take 1 Univers 75 mg 7-07 tablet by ity of tablet 00:00: mouth [place] 00 daily. Medical Branch aspirin 81 2020-0 Yes [id number] 81mg Take 1 U nivers mg chewable 7-07 tablet by ity of tablet 00:00: mouth [place] 00 daily. Medical Branch clopidogreL 2020-0 Yes [id number] 75mg Take 1 Univers 75 mg 7-07 tablet by ity of tablet 00:00: mouth [place] 00 daily. Medical Branch aspirin 81 2020-0 Yes [id number] 81mg Take 1 U nivers mg chewable 7-07 tablet by ity of tablet 00:00: mouth [place] 00 daily. Medical Branch clopidogreL 2020-0 Yes [id number] 75mg Take 1 Univers 75 mg 7-07 tablet by ity of tablet 00:00: mouth [place] 00 daily. Medical Branch ezetimibe 2020-0 Yes [id number] 10mg Take 1 U nivers 10 mg 6-18 tablet by ity of tablet 00:00: mouth [place] 00 daily. Medical Branch furosemide 2020-0 Yes [id number] 1 tablet Univers 20 mg 6-18 02 as needed ity of tablet 00:00: for leg [place] swelling Medical Branch ezetimibe 2020-0 Yes [id number] 10mg Take 1 U nivers 10 mg 6-18 tablet by ity of tablet 00:00: mouth [place] 00 daily. Medical Branch furosemide 2020-0 Yes [id number] 1 tablet Univers 20 mg 6-18 02 as needed ity of tablet 00:00: for leg [place] swelling Medical Branch ezetimibe 2020-0 Yes [id number] 10mg Take 1 U nivers 10 mg 6-18 tablet by ity of tablet 00:00: mouth [place] 00 daily. Medical Branch furosemide 2020-0 Yes [id number] 1 tablet Univers 20 mg 6-18 02 as needed ity of tablet 00:00: for leg [place] 00 swelling Medical Branch glipiZIDE 2020-0 Yes Type 2 5mg Take 0.5 Un [...] at [place] 00 bedtime. Medical Branch atorvastati Yes Coronary 80mg Take 1 Univers n 80 mg 5-06 artery tablet by ity o f tablet 00:00: disease mouth at s 00 involving bedtime. Medica l tribe Branch coronary artery of tribe heart without angina pectoris glipiZIDE Yes Type 2 5mg Take 0.5 Un cali 10 mg 5-06 diabetes tablets by ity of tablet 00:00: mellitus mouth 2 with (two) Medical hypoglycemi times Branch a without daily coma, with before long-term breakfast current use and of insulin dinner. mirtazapine Yes History of 15mg Take 1 Univers 15 mg 5-06 depression tablet by ity of tablet 00:00: mouth at [place] [address] bedtime. Medical Branch atorvastati Yes Coronary 80mg Take 1 Univers n 80 mg 5-06 artery tablet by ity o f tablet 00:00: disease mouth at [facility] s 00 involving bedtime. Medica l tribe Branch coronary artery of tribe heart without angina pectoris ezetimibe 2020- No [...] :00 involving daily for Medi blanqu[place] tablet tribe 30 days. Branch coronary artery of tribe heart without angina pectoris SITagliptin 2020- No [...] :00 involving daily for Medi [place] tablet tribe 30 days. Branch coronary artery of tribe heart without angina pectoris SITagliptin 2020- No [...] Medical DAILY WITH Branch MEALS pantoprazol Yes [id number] 40mg Take 1 Univers e 40 mg EC 1-11 tablet by ity of tablet 00:00: mouth 00 daily. Medical Branch pantoprazol Yes [id number] 40mg Take 1 Univers e 40 mg EC 1-11 tablet by ity of tablet 00:00: mouth 00 daily. Medical Branch pantoprazol Yes [id number] 40mg Take 1 Univers e 40 mg [...] as 00 :00 involving bedtime. Medica l tribe Branch coronary artery of tribe heart without angina pectoris atorvastati 2020- No Coronary 80mg Take 1 Univers n 80 mg 3-20 05-06 artery tablet by ity of tablet 00:00: 00:00 disease mouth at [place] as 00 :00 involving bedtime. Medica l tribe Branch coronary artery of tribe heart without angina pectoris nitroglycer 2018-05 Yes [id number] 1 tab SL Univers in 0.4 mg 0-29 q5min up ity of sublingual 00:00: to 3 doses [place] tablet 00 PRN chest Medical pain, then Branch activate 911. nitroglycer 2018-05 Yes [id number] 1 tab SL Univers in 0.4 mg 0-29 q5min up ity of sublingual 00:00: to 3 doses [place] tablet 00 PRN chest Medical pain, then Branch activate 911. nitroglycer 2018-05 Yes [id number] 1 tab SL Univers in 0.4 mg [...] tablet Common n Calcium n Calcium Horan [facility] Lexapro Lexapro Yes Dada 1 tablet Com mon [facility] Metoprolol Metoprolol Yes Dada 1 tablet Common Tartrate Tartrate Horan with food S pirit [facility] Ranexa [place] Yes Dada 1 tablet Commo n [facility] Insulin Insulin Yes Dada 60 units Com mon Aspart Prot Aspart Prot Horan BID Spirit & Aspart & Aspart [facility] Aspirin Aspirin Yes Dada 1 tablet Com mon [facility] Gabapentin Gabapentin Yes Dada 1 tablet Common Horan [facility] Furosemide Furosemide Yes Dada 1 tablet Common Horan [facility] Duloxetine Duloxetine Yes Dada 1 capsule Common HCl HCl Horan [facility] Xanax Xanax Yes Dada 1 tablet Common Horan [facility] Clopidogrel Clopidogrel Yes Dada 1 tablet Common Bisulfate Bisulfate Horan [facility] Metformin Metformin Yes Dada 1 tablet Common HCl HCl Horan with meals [facility] Pantoprazol Pantoprazol Yes Dada 1 tablet Common e Sodium e Sodium [facility] Klor-Con Klor-Con Yes Dada 1 tablet C ommon M10 M10 Horan with food [facility] Duloxetine Duloxetine Yes Dada 1 capsule Common HCl HCl [facility] Levetiracet Levetiracet Yes Dada 1 tablet Common am am [facility] [place] Yes Dada 1 tablet Common Horan as needed [facility] Lexapro Lexapro Yes Dada 1 tablet Com mon [facility] Atorvastati Atorvastati Yes Dada 1 tablet Common n Calcium n Calcium Horan [facility] Clopidogrel Clopidogrel Yes Dada 1 tablet Common Bisulfate Bisulfate Horan [facility] Furosemide Furosemide Yes Dada 1 tablet Common Horan [facility] Immunizations Ordered Filled Immunization Date Status Comments Sour e Immunization Name Name SARS-COV-2 COVID-19 2021-01-17 Completed Unive rsity of PFIZER VACCINE 00:00:00 [facility] SARS-COV-2 COVID-19 2021-01-17 Completed Unive rsity of PFIZER VACCINE 00:00:00 [facility] SARS-COV-2 COVID-19 2021-01-17 Completed Unive rsity of PFIZER VACCINE 00:00:00 [facility] Vital Signs Vital Name Observation Time Observation Value Comments Source Heart rate 2021-11-22 23:40:00 84 /min [facility] Respiratory rate 2021-11-22 23:40:00 22 /min [facility] Oxygen saturation in 2021-11-22 23:40:00 97 /min [facility] Arterial blood by [facility] Pulse oximetry Branch Systolic blood 2021-11-22 23:30:00 135 mm[Hg] Univer sity of pressure [facility] [place] [facility] Diastolic blood 2021-11-22 23:30:00 82 mm[Hg] Unive rsity of pressure [facility] [place] [facility] Body temperature 2021-11-22 21:25:00 36.83 [facility] weight 2021-11-22 21:25:00 53.978 kg [facility] BMI 2021-11-22 21:25:00 20.43 kg/m2 [facility] Systolic blood 2021-11-22 19:27:00 131 mm[Hg] Univer sity of [facility] Diastolic blood 2021-11-22 19:27:00 85 mm[Hg] Unive rsity of [facility] Heart rate 2021-11-22 19:27:00 86 /min [facility] Body height 2021-11-22 19:27:00 162.6 cm [facility] Body weight 2021-11-22 19:27:00 54.341 kg [facility] BMI 2021-11-22 19:27:00 20.56 kg/m2 [facility] Oxygen saturation in 2021-11-22 19:27:00 96 /min [facility] Arterial blood by [facility] Pulse oximetry Branch Heart rate 2020-10-01 20:20:00 60 /min [facility] Systolic blood 2020-10-01 20:20:00 120 mm[Hg] Univer sity of [facility] Diastolic blood 2020-10-01 20:20:00 80 mm[Hg] Unive rsity of [facility] Heart rate 2020-10-01 20:20:00 60 /min [facility] Systolic blood 2020-10-01 20:20:00 120 mm[Hg] Univer sity of [facility] Diastolic blood 2020-10-01 20:20:00 80 mm[Hg] Unive rsity of [facility] Procedures Procedure Date / Time Performing Clinician Source Performed COMP. METABOLIC PANEL 2021-11-22 22:31:00 Fabby Rivera [facility] ([id number]) [facility] AC PANEL 21 + LACTIC ACID 2021-11-22 21:55:00 Fabby Rivera [facility] CBC WITH DIFF 2021-11-22 21:54:[address] [facility] URINALYSIS 2021-11-22 21:54:[address] [facility] NOTICE OF PRIVACY 2021-11-22 21:18:55 Doctor Unassigned, [facility] PRACTICES [place] [facility] [place] MEDICATION CORRESPONDENCE 2021-10-20 05:01:00 Doctor Unassmarcela, [facility] [facility] Plan of Care Planned Activity Planned Date Details Comments Source Future Scheduled 2022 Screening for [facility] [place] Test 00:00:00 malignant neoplasm of Medica l Branch colon (procedure) [code = 063495336] Future Scheduled 2022 Screening for [facility] [place] Test 00:00:00 malignant neoplasm of Medica l Branch colon (procedure) [code = 365159839] Future Scheduled 2021-09-07 Creatinine [facility] [place] Test 00:00:00 measurement Medical Branch (procedure) [code = [id number]] Future Scheduled 2021-09-07 Creatinine [facility] [place] Test 00:00:00 measurement Medical Branch (procedure) [code = [id number]] Future Scheduled 2021-09-05 Calculated low [facility] [place] Test 00:00:00 density lipoprotein Medical Branch cholesterol level (procedure) [code = [id number]] Future Scheduled 2021-09-05 Calculated low [facility] [place] Test 00:00:00 density lipoprotein Medical Branch cholesterol level (procedure) [code = 318753093] Future Scheduled 2021-05-08 Depression screening [facility] Test 00:00:00 (procedure) [code = Medical Branch 151527334] Future Scheduled 2021-05-08 Depression screening [facility] Test 00:00:00 (procedure) [code = Medical Branch 962179560] Future Scheduled 2021-03-07 Hemoglobin A1c [facility] [place] [facility] 00:00:00 measurement Medical Branch (procedure) [code = 65336558] Future Scheduled 2021-03-07 Hemoglobin A1c [facility] [place] [facility] 00:00:00 measurement [facility] (procedure) [code = 19702908] Future Scheduled 2021-01-27 INFLUENZA VACCINE [facility] 00:00:00 (Season Ended) [code Medical Branch = INFLUENZA VACCINE (Season Ended)] Future Scheduled 2021-01-27 INFLUENZA VACCINE [facility] [place] [facility] 00:00:00 (Season Ended) [code Medical Branch = INFLUENZA VACCINE (Season Ended)] Future Scheduled 2020-10-31 Screening for [facility] [place] Test 00:00:00 malignant neoplasm of Medica l Branch breast (procedure) [code = 735241158] Future Scheduled 2020-10-31 Screening for [facility] Test 00:00:00 malignant neoplasm of Medica l Branch breast (procedure) [code = 573787716] Future Scheduled 2020-09-25 Screening for [facility] Test 00:00:00 malignant neoplasm of Medica l Branch cervix (procedure) [code = 147913277] Future Scheduled 2020-09-25 Screening for [facility] Test 00:00:00 malignant neoplasm of Medica l Branch cervix (procedure) [code = 046396851] Future Scheduled 2020-05-10 Diabetic foot [facility] Test 00:00:00 examination Medical Branch (regime/therapy) [code = 606387454] Future Scheduled 2020-05-10 Diabetic foot [facility] Test 00:00:00 examination Medical Branch (regime/therapy) [code = 932345348] Future Scheduled 2019-09-01 Microalbumin [facility] Test 00:00:00 measurement, urine, Medical Branch quantitative (procedure) [code = 617753148] Future Scheduled 2019-09-01 Microalbumin [facility] Test 00:00:00 measurement, urine, Medical Branch quantitative (procedure) [code = 678860212] Future Scheduled 1991 DTaP,Tdap,and Td [facility]00 Vaccines (1 - Tdap) Medical Branch [code = DTaP,Tdap,and Td Vaccines (1 - Tdap)] Future Scheduled 1991 DTaP,Tdap,and Td [facility] Test 00:00:00 Vaccines (1 - Tdap) Medical Branch [code = DTaP,Tdap,and Td Vaccines (1 - Tdap)] Future Scheduled 1990 Hepatitis C screening [facility] [place] [facility] 00:00:00 (procedure) [code = Medical Branch 300376396] Future Scheduled 1990 Hepatitis C screening [facility] [place] [facility] Test 00:00:00 (procedure) [code = Medical Branch 213337356] Future Scheduled 1988 SARS-CoV-2 (COVID-19) [facility] 00:00:00 Vaccine (1) [code = Medical Branch SARS-CoV-2 (COVID-19) Vaccine (1)] Future Scheduled 1988 SARS-CoV-2 (COVID-19) [facility] 00:00:00 Vaccine (1) [code = Medical Branch SARS-CoV-2 (COVID-19) Vaccine (1)] Future Scheduled 1982 Examination of retina [facility] 00:00:00 (procedure) [code = Medical Branch 195696726] Future Scheduled 1982 Examination of retina [facility] 00:00:00 (procedure) [code = Medical Branch 152696262] Future Scheduled 1978 PNEUMOCOCCAL 0-64 [facility]iver [facility]ity [...] Date/Time Type Type Clinicians Facility Department ID 2022-01-21 2022-01-21 [id number] Univers 12:00:00 12:00:00 ANYA turner [facility] 2022-01-12 2022-01-12 Outpatient R NEO KNUTSON [facility] [id number] Univers 16:00:00 16:00:00 NEO KNUTSON [facility] 2021-11-22 2021-11-22 [facility] [id number] Univers 16:27:00 18:56:00 FABBY turner [facility] 2021-11-22 2021-11-22 Emergency [facility] [id number] Univers 16:27:00 18:56:00 Fabby CHAN [id number] ity [facility] [id number] [place] [facility] [phone] [place] [address] Branch 2021-11-22 2021-11-22 Office [facility] [id number] Univers 14:30:00 16:04:36 Visit [facility] [id number] it y of [place] 4.2.7.2.686 Raffy as DILLAN?BLEA [phone] In terranceroseann BURNS [address] [place] [address] MEDICAL OFFICE BUILDING 2021-11-22 2021-11-22 Outpatient R MINH [facility] [id number] Univers 14:30:00 16:04:36 BELEN romargarette of [facility] 2021-10-20 2021-10-20 Orders Doctor TOM [id number] Univers 00:00:00 00:00:00 Only Unassigned, ARTURO [id number] ity of [place] [facility] [id number] Raffy as [phone] [address] 2020-10-01 2020-10-01 Office Lucas [facility] [id number] 15:08:27 16:09:31 Visit Dev Bennie [facility] [id number] Dust[place] [id number] Professio [phone] [place] [address] Office [address] [facility] 2018-06-27 2018-06-27 Out[id number] Common 11:57:00 11:57:[address] [facility] 2018-06-15 2018-06-15 Out[facility] [id number] Common 16:24:00 16:24:[address] [facility] 2018-06-13 2018-06-13 Outpatient [facility] [id number] Common 13:30:00 13:30:[address] Family [facility] 2017-12-12 2017-12-12 Out[facility] [id number] Common 13:22:00 13:22:[address] [facility] 2017-11-20 2017-11-20 Outpatient [facility] [id number] Common 10:30:00 10:30:[address] [facility] 2017-11-02 2017-11-02 Outpatient [facility] [id number] Common 15:15:00 15:15:[address] [facility] Results Test Description Test Time Test Comments Results Result Comments Source COMP. METABOLIC PANEL (19755) 2021-11-22 22:53:59 Test Item Value Reference Range Interpretation Comme nts NA (test code = 9416851937) 134 mmol/L 135-145 L K (test code = 2420952829) 3.3 mmol/L 3.5-5.0 L CL (test code = 6211911303) 104 mmol/L 98-108 CO2 TOTAL (test code = 4125299060) 23 mmol/L 23-31 AGAP (test code = 6704811860) 2-16 BUN (test code = 4750722429) 11 mg/dL 7-23 GLUCOSE (test code = 9219817437) 337 mg/dL 70-110 H CREATININE (test code = 0.56 mg/dL 0.50-1.04 7392644336) TOTAL BILI (test code = 0.6 mg/dL 0.1-1.6 1314566681) CALCIUM (test code = 5583886157) 8.1 mg/dL 8.6-10.6 L T PROTEIN (test code = 9431957988) 5.8 g/dL 6.3-8.2 L ALBUMIN (test code = 8154724119) 3.0 g/dL 3.5-5.0 L ALK PHOS (test code = 0214879480) 128 U/L 34-122 H ALTv (test code = 1742-6) 11 U/L 5-35 AST(SGOT) (test code = 6321620273) 14 U/L 13-40 eGFR (test code = 0186172689) mL/min/1.73m2 NISHA (test code = NISHA) Association of Glomerular Filtration Rate (GFR) and Staging of Kidney Disease* + +-------- + ------+| GFR (mL/min/1.73 m2) ?| With Kidney Damage ?| ?Without Kidney Damage+ +-- + +| ?>90 ?| ?Stage one ?| ? Normal ?+ +------- + -------+| ?60-89 ?| ?Stage two ?| ? Decreased GFR ? + +-------- + ------+| ?30-59 ?| ?Stage three ?| ? Stage three ? + +-------- + ------+| ?15-29 ?| ?Stage four ? | ? Stage four ?+ +------- + -------+| ?<15 (or dialysis) ? ?| ?Stage five ? | ? Stage five ?+ +------- + -------+ *Each stage assumes the associated GFR [...] or abnormalities in imaging tests). Lab Interpretation (test code = Abnormal 28181-8) [facility] WITH [id number] 22:08:12 Test Item Value Reference Range Interpretation Comments WBC (test code = See_Comment [Automated 2590-2) message] The sy stem which generated this result transmitted reference range : 4.30 - 11.10 10*3/?L. The reference range was not used to interpret this result as normal/abnormal . RBC (test code = See_Comment H [Automated 789-8) message] The sy stem which generated this result transmitted reference range : 3.93 - 5.25 10*6/?L. The reference range was not used to interpret this result as normal/abnormal . HGB (test code = 16.3 g/dL 11.6-15.0 H 718-7) HCT (test code = 46.6 % 35.7-45.2 H 4544-3) MCV (test code = 86.9 fL 80.6-95.5 787-2) MCH (test code = 30.4 pg 25.9-32.8 785-6) MCHC (test code = 35.0 g/dL 31.6-35.1 786-4) RDW-SD (test code = 38.5 fL 39.0-49.9 L 92963-1) RDW-CV (test code = 12.1 % 12.0-15.5 788-0) PLT (test code = See_Comment H [Automated 777-3) message] The sy stem which generated this result transmitted reference range : 166 - 358 10*3/ ?L. The reference r chelsie was not used to interpret this result as normal/abnormal . MPV (test code = 10.5 fL 9.5-12.9 56120-2) NRBC/100 WBC (test See_Comment [Automat ed code = 4089057896) message] The system which generated this result transmitted reference range : 0.0 - 10.0 /100 WBCs. The refer ence range was not u sed to interpret th is result as normal/abnormal . NRBC x10^3 (test code <0.01 See_Comment [Auto mated = 0618924197) message] The s ystem which generated this result transmitted reference range : 10*3/?L. The reference range was not used to interpret this result as normal/abnormal . GRAN MAT (NEUT) % 63.7 % (test code = 770-8) IMM GRAN % (test code 0.50 % = 8902608755) LYMPH % (test code = 28.7 % 736-9) MONO % (test code = 4.5 % 5905-5) EOS % (test code = 1.9 % 713-8) BASO % (test code = 0.7 % 706-2) GRAN MAT x10^3(ANC) 5.65 10*3/uL 1.88-7.09 (test code = 9231042927) IMM GRAN x10^3 (test 0.04 10*3/uL 0.00-0.06 code = 9641490315) LYMPH x10^3 (test code 2.54 10*3/uL 1.32-3.29 = 731-0) MONO x10^3 (test code 0.40 10*3/uL 0.33-0.92 = 742-7) EOS x10^3 (test code = 0.17 10*3/uL 0.03-0.39 711-2) BASO x10^3 (test code 0.06 10*3/uL 0.01-0.07 = 704-7) Lab Interpretation Abnormal (test code = 42455-9) [facility]"
[2022-01-10 23:02] LABS: Urine Blood 3+ (Negative); Urine Glucose 2+ (Negative); Urine Protein 2+ (Negative)
[2022-01-10 23:42] LABS: Urine Bacteria >50 /HPF (<20)
[2022-01-10 23:43] LABS: Calcium Oxalate Crystals- Ur Few /HPF (None Seen); Urine RBC <5 /HPF (None Seen)
--- NOTE | 2022-01-10 23:47 | ER ---
Nurse's Notes [facility] Name: Karen Shah Age: 51 yrs Sex: Female : 1970 Arrival Date: 01/10/2022 Time: 20:08 Bed 6 Private MD: Diagnosis: UTI/ Urinary tract infection, site not specified Presentation: 01/10 20:46 Chief complaint: Patient states: "All day I have had a really bad headache and I think vc1 I have a really bad bladder infection for the last month. I took 50 units of 70/30 an hour ago.". Coronavirus screen: Vaccine status: Patient reports receiving the 2nd dose of the covid vaccine. [employer] At this time, the client does not indicate any symptoms associated with coronavirus-19. Ebola Screen: No symptoms or risks identified at this time. Risk Assessment: Do you want to hurt yourself or someone else? Patient reports no desire to harm self or others. Onset of symptoms is unknown. 20:46 Method Of Arrival: Wheelchair vc1 20:46 Acuity: ARIEL 3 vc1 20:56 Initial Sepsis Screen: Does the patient meet any 2 criteria? HR > 90 bpm. No. Patient's vc1 initial sepsis screen is negative. Does the patient have a suspected source of infection? Yes: Dysuria/Frequency/Urgency/UTI. Triage Assessment: 20:48 Headache History: The patient has had previous headaches and this one is more severe vc1 than previous episodes. General: Appears in no apparent distress. comfortable, Behavior is calm. Pain: Complains of pain in meatus Pain does not radiate. Pain currently is 10 out of 10 on a pain scale. Quality of pain is described as Pain began gradually, Also complains of no other associated symptoms. Neuro: Level of Consciousness is awake, alert, obeys commands, Oriented to person, place, time, situation, Appropriate for age. Cardiovascular: Capillary refill Patient's skin is warm and dry. Respiratory: Airway is patent Respiratory effort is even, unlabored, Respiratory pattern is regular. GI: No deficits noted. : Reports burning with urination, vaginal itching. Derm: No deficits noted. Musculoskeletal: No deficits noted. 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 - Social history:: Smoking status: Patient reports the use of cigarette tobacco products, 1 pack every 3 days. Screenin:52 Abuse screen: Denies threats or abuse. Nutritional screening: No deficits noted. vc1 Tuberculosis screening: No symptoms or risk factors identified. Fall Risk None identified. Assessment: 23:00 General: Appears in no apparent distress. comfortable, Behavior is calm, cooperative. kl Pain: Denies pain. GI: Reports. : Reports burning with urination. Vital Signs: 20:46 Weight 49.9 kg; vc1 20:53 BP 155 / 99; Pulse 106; Resp 17; Temp 97.6; Pulse Ox 99% ; vc1 23:40 BP 128 / 71; Pulse 82; Resp 18; Pulse Ox 99% on R/A; kl ED Course: 20:08 Patient arrived in ED. bp1 20:48 Triage completed. vc1 20:52 Arm band placed on right wrist. vc1 20:52 Patient has correct armband on for positive identification. vc1 20:54 Sarah Flores FNP-C is PHCP. snw 20:54 Sánchez Nice MD is Attending Physician. snw 22:52 Urine Culture Sent. kl 22:52 Urine Microscopic Only Sent. kl 23:40 No provider procedures requiring assistance completed. Patient did not have IV access kl during this emergency room visit. Administered Medications: 01/11 00:09 Drug: Rocephin (cefTRIAXone) 1 grams Route: IM; Site: left vastus lateralis; kl 00:15 Follow up: Response: No adverse reaction Medication: 01/10 20:56 VIS not applicable for this client. vc1 Outcome: 23:47 Discharge ordered by . snw 23:50 Discharged to home via wheelchair. kl 23:50 Condition: good 23:50 Discharge instructions given to patient, Instructed on discharge instructions, follow up and referral plans. medication usage, Demonstrated understanding of instructions, follow-up care, medications, Prescriptions given X 1. 01/11 01:55 Patient left the ED. kl Signatures: Syeda Steen RN Sarah Patiño, PRODUCT ASSEMBLER-C PRODUCT ASSEMBLER-Csnw Monica Devi Vanessa, RN RN vc1
--- NOTE | 2022-01-10 23:48 | EDPHYS ---
Physician Documentation [facility] Name: Karen Shah Age: 51 yrs Sex: Female : 1970 Arrival Date: 01/10/2022 Time: 20:08 Bed 6 Private MD: ED Physician Sánchez Nice HPI: 01/10 21:45 This 51 yrs old Female presents to ER via Wheelchair with complaints of snw Headache, Pain With Urination. 21:45 The patient complains of pain to the forehead. The patient describes the headache as snw aching. Onset: The symptoms/episode began/occurred today. Associated signs and symptoms: Pertinent positives: pt states she has had urinary tract infection symptoms for a month. Severity of symptoms: At its worst the pain was moderate. The patient has experienced similar episodes in the past, chronically. It is unknown whether or not the patient has recently seen a physician. 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 - Social history:: Smoking status: Patient reports the use of cigarette tobacco products, 1 pack every 3 days. ROS: 21:48 Eyes: Negative for injury, pain, redness, and discharge, ENT: Negative for injury, snw pain, and discharge, Neck: Negative for injury, pain, and swelling, Cardiovascular: Negative for chest pain, palpitations, and edema, Respiratory: Negative for shortness of breath, cough, wheezing, and pleuritic chest pain, Abdomen/GI: Negative for abdominal pain, nausea, vomiting, diarrhea, and constipation, Back: Negative for injury and pain. 21:48 MS/Extremity: Negative for injury and deformity, Skin: Negative for injury, rash, and discoloration. 21:48 Psych: Negative for depression, anxiety, suicide ideation, homicidal ideation, and hallucinations. 21:48 Constitutional: Positive for body aches, malaise. 21:48 : Positive for dysuria. 21:48 Neuro: Positive for headache. Exam: 21:49 Constitutional: This is a well developed, well nourished patient who is awake, alert, snw and in no acute distress. Head/Face: Normocephalic, atraumatic. Eyes: Pupils equal round and reactive to light, extra-ocular motions intact. Lids and lashes normal. Conjunctiva and sclera are non-icteric and not injected. Cornea within normal limits. Periorbital areas with no swelling, redness, or edema. ENT: Nares patent. No nasal discharge, no septal abnormalities noted. Tympanic membranes are normal and external auditory canals are clear. Oropharynx with no redness, swelling, or masses, exudates, or evidence of obstruction, uvula midline. Mucous membranes moist. Neck: Trachea midline, no thyromegaly or masses palpated, and no cervical lymphadenopathy. Supple, full range of motion without nuchal rigidity, or vertebral point tenderness. No Meningismus. Chest/axilla: Normal chest wall appearance and motion. Nontender with no deformity. No lesions are appreciated. Cardiovascular: Regular rate and rhythm with a normal S1 and S2. No gallops, murmurs, or rubs. Normal PMI, no JVD. No pulse deficits. Respiratory: Lungs have equal breath sounds bilaterally, clear to auscultation and percussion. No rales, rhonchi or wheezes noted. No increased work of breathing, no retractions or nasal flaring. Abdomen/GI: Soft, non-tender, with normal bowel sounds. No distension or tympany. No guarding or rebound. No evidence of tenderness throughout. Back: No spinal tenderness. No costovertebral tenderness. Full range of motion. Skin: Warm, dry with normal turgor. Normal color with no rashes, no lesions, and no evidence of cellulitis. MS/ Extremity: Pulses equal, no cyanosis. Neurovascular intact. Full, normal range of motion. Neuro: Awake and alert, GCS 15, oriented to person, place, time, and situation. Cranial nerves II-XII grossly intact. Motor strength 5/5 in all extremities. Sensory grossly intact. Cerebellar exam normal. Normal gait. Psych: Awake, alert, with orientation to person, place and time. Behavior, mood, and affect are within normal limits. Vital Signs: 20:46 Weight 49.9 kg; vc1 20:53 BP 155 / 99; Pulse 106; Resp 17; Temp 97.6; Pulse Ox 99% ; vc1 23:40 BP 128 / 71; Pulse 82; Resp 18; Pulse Ox 99% on R/A; kl MDM: 21:09 Patient medically screened. snw 23:47 Data reviewed: vital signs, nurses notes. Data interpreted: Pulse oximetry: on room air snw is 99 %. Interpretation: normal. Counseling: I had a detailed discussion with the patient and/or guardian regarding: the historical points, exam findings, and any diagnostic results supporting the discharge/admit diagnosis, the presence of at least one elevated blood pressure reading (>120/80) during this emergency department visit, lab results, the need for outpatient follow up, to return to the emergency department if symptoms worsen or persist or if there are any questions or concerns that arise at home. Response to treatment: sleeping in no distress. Special discussion: Based on the history and exam findings, there is no indication for further emergent testing or inpatient evaluation. I discussed with the patient/guardian the need to see the primary care provider for further evaluation of the symptoms. 01/10 21:10 Order name: Glucose, Ancillary Testing; Complete Time: 21:13 EDMS 01/10 21:44 Order name: Urine Culture snw 01/10 21:44 Order name: Urine Microscopic Only; Complete Time: 23:45 snw 01/10 23:02 Order name: Urine Dipstick-Ancillary; Complete Time: 23:04 EDMS 01/10 23:22 Order name: Glucose, Ancillary Testing; Complete Time: 23:29 EDMS 01/10 21:44 Order name: Urine Dipstick-Ancillary (obtain specimen) snw Administered Medications: 01/11 00:09 Drug: Rocephin (cefTRIAXone) 1 grams Route: IM; Site: left vastus lateralis; kl 00:15 Follow up: Response: No adverse reaction kl Disposition: 04:58 Co-signature as Attending Physician, Sánchez Nice MD. [email or web address] Disposition Summary: 01/10/22 23:47 Discharge Ordered Location: Home snw Condition: Stable snw Diagnosis - UTI/ Urinary tract infection, site not specified snw Followup: snw - With: Emergency Department - When: As needed - Reason: Worsening of condition Followup: snw - With: Private Physician - When: 2 - 3 days - Reason: Recheck today's complaints, Continuance of care, Re-evaluation by your physician Discharge Instructions: - Discharge Summary Sheet snw - Urinary Tract Infection, Adult snw - Rehydration, Adult snw Forms: - Medication Reconciliation Form snw - Thank You Letter snw - Antibiotic Education snw - Prescription Opioid Use snw Prescriptions: - Augmentin 875-125 mg Oral Tablet - take 1 tablet by ORAL route every 12 hours for 10 days; 20 tablet; Refills: 0, snw Product Selection Permitted Signatures: Dispatcher [employer] EDSyeda Orantes, CHIDI MURILLO kl Sarah Flores, CONDEMNATION ENGINEER-C CONDEMNATION ENGINEER-Csnw Burton Jones CONDEMNATION ENGINEER-C CONDEMNATION ENGINEER-Cla1 Sánchez Nice MD MD [email or web address] Nichole Huerta RN RN vc1
[2022-01-11] MEDS ORDERED: WATER FOR INJ,STERILE 10 ML ONE (00:11)
[2022-01-11] MEDS ORDERED: CEFTRIAXONE 1000 MG/VIAL ONE (00:11)
[2022-01-11 03:06] VITALS: TEMP 97.6; O2SAT 99
[2022-01-11 03:12] VITALS: BP 128/71
== END 2022-01-11 01:55 | disposition home or self-care (01) ==
LOC: ER 20:05
DX: N39.0 Urinary tract infection, site not specified (principal); I10 Essential (primary) hypertension; F17.210 Nicotine dependence, cigarettes, uncomplicated; Z95.1 Presence of aortocoronary bypass graft; Z88.5 Allergy status to narcotic agent; Z91.048 Other nonmedicinal substance allergy status
CPT/HCPCS: 81003; 81015; 82947; 87086; 87088

== ENCOUNTER 2022-02-08 18:50 | Emergency (ER) | payer OTHER ==
--- OUTSIDE RECORDS SUMMARY | 2022-02-08 18:55 | XMS REPORT | Continuity of Care Document ---
:1970 Author Organization [facility] t Address [address] [place] [address] Care Team Providers Name Role Phone Dev Zavala MD Primary Care Physician [phone] ANYA VILLEGAS Attending Clinician Unavailable Dev Zavala MD Attending Clinician Belen Padilla Attending Clinician NEO KNUTSON Attending Clinician Unavailable NEO KNUTSON Attending Clinician Unavailable FABBY RIVERA Attending Clinician Unavailable Fabby Rivera DO Attending Clinician BELEN ASTORGA Attending Clinician Unavailable Doctor Unassigned, [place] Attending Clinician Unavailable Payers Payer Name Policy Type Policy Number [...] CAD in CAD in Disease Active Univers [place] 7-05 ity of artery artery 00:00: [place] [...] nivers filomena filomena 4-11 ity of 00:00: [place] [facility] Complicate Complicate Disease Active U [...] pain, 2-16 ity of left left 00:00: [place] 00 Medical Branch Osteoarthr Osteoarthr Disease Active 2019-05 U nivers itis of itis of 2-16 ity of left hip, left hip, 00:00: Nat s unspecifie unspecifie 00 Me dical d d Branch osteoarthr osteoarthr itis type itis type Obesity Obesity Disease Active Univers (BMI (BMI 3-16 ity of 30-39.9) 30-39.9) 00:00: [place] [facility] Chest pain Chest pain Disease Active 2019- U nivers 3-16 ity of 00:00: [place] 00 Medical Branch Coronary Coronary Disease Active Unive rs artery artery 3-09 ity of disease disease 00:00: [place] involving involving 00 Medi [place] Branch coronary coronary artery of artery of [place] heart heart without without angina angina pectoris [...] this [place] incontinen incontinen 00 note Me dical ce, ce, might be Branch female) female) different from the original. Added automatic ally from request for surgery [id number] High High Disease Active Univers cholestero cholestero it y of l l [facility] HTN HTN Disease Active Univers (hypertens (hypertens it y of ion) ion) [facility] GERD GERD Disease Active Univers (gastroeso (gastroeso it y of phageal phageal [place] reflux reflux Medical disease) disease) Branch DM DM Disease Active Univers (diabetes (diabetes ity of mellitus) mellitus) [facility] Depression Depression Disease Active U nivers ity [facility] CVA CVA Disease Active Univers (cerebral (cerebral ity of vascular vascular [place] accident) accident) [facility] CHF CHF Disease Active Univers (congestiv (congestiv it y of e heart e heart [place] failure) failure) Medica Branch Anxiety Anxiety Disease Active Univers ity [facility] Angina Angina Disease Active [facility] right H/O right Disease Active [...] [facility], [facility] Hx of CABG Hx of CABG Disease Active U nivers ity [facility] Migraines Migraines Disease Active Uni vers ity [facility] Seizures Seizures Disease Active Unive rs ity [facility] Unilateral Unilateral Disease Active U nivers AKA, right AKA, right it y of [facility] History of History of Problem Active C ommon CVA CVA Spirit (cerebrova (cerebrova - [facility] scular scular [facility] accident) accident) [facility] Migraine Migraine Problem Active Commo n without without Spirit aura and aura and - [facility] without without St status status [facility]u Me dical s, not s, not Center intractabl intractabl e e 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 - [facility] with with St hyperglyce hyperglyce [facility] [place] 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 - [facility] with other with other St specified specified [place] s complicati complicati Me dical on on Center Hx of CABG Hx of CABG Problem Active C ommon Spirit - [facility] Chronic Chronic Problem Active Common pain pain Spirit disorder disorder - [facility]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 Com mon current current Spirit use of use of - [facility] insulin insulin [facility] Neuropathy Neuropathy Problem Active C ommon Spirit - [facility] Depression Depression Problem Active C ommon with with [facility] anxiety anxiety [facility] HTN HTN Problem Active Common (hypertens (hypertens Sp kate ion), ion), - [facility] benign benign [facility] Seizures Seizures Problem Active Commo n Spirit - [facility] Coronary Coronary Problem Active Commo n artery artery [facility] disease disease - [facility] involving involving coronary coronary [facility] bypass bypass Medical graft of graft of [place] heart with heart with angina angina pectoris pectoris Dependent Dependent Problem Active Com mon on on Spirit wheelchair wheelchair - [facility] History of History of Problem Active C rashel right right Spirit above knee above knee - [facility] amputation amputation [facility] Allergies, Adverse Reactions, Alerts Allergy [...] Active Info Not Commo n Reaction Available [facility] Toradol Adverse Active Info Not Common Reaction Available [facility] Social History Social Habit Start Date Stop Date Quantity Comments Source History of tobacco Cigarette Smoker University of use [facility] Exposure to 2022-01-02 2022-01-12 Not sure University SARS-CoV-2 (event) 00:00:00 15:45:00 [facility] Alcohol intake 2021-11-22 2021-11-22 Ex-drinker [facility] 00:00:00 00:00:00 (finding) [facility] Education 2021-01-15 2021-01-15 12 [facility] 00:00:00 00:00:00 [place] [facility] History SDOH 2020-05-08 2020-05-08 99 University o f Alcohol Frequency 00:00:00 00:00:00 [facility] edical Branch History SDOH 2020-05-08 2020-05-08 99 [place] o f Alcohol Std Drinks 00:00:00 00:00:00 [place] [facility] History SDAR 2020-05-08 2020-05-08 99 [place] o f Alcohol Binge 00:00:00 00:00:00 [facility] al Branch Cigarettes smoked 2020-04-03 2020-04-03 Univers ity of current (pack per 00:00:00 00:00:00 [facility] ) - Reported Branch Tobacco use and 2020-04-03 2020-04-03 Smokeless Universit y of exposure 00:00:00 00:00:00 tobacco non-user [facility] dical [place] Tobacco Comment 2020-04-03 2020-04-03 smoking since 12 Uni versity of 00:00:00 00:00:00 years old [facility] Alcohol Comment 2019-10-11 2019-10-11 rare Universit y of 00:00:00 00:00:00 [facility] Sex [birth year] At [birth year] Universit y of 00:00:00 00:00:00 [facility] Smoking Status Start Date Stop Date Source Smokes tobacco daily 2020-04-03 00:00:00 Univers ity of [facility] Medications Ordered Filled Start Stop Current Ordering Indication Dosage Frequency Signature Comments Components Source Medication Medication Date Date Medication? Clinician (SIG) Name Name GABAPENTIN Yes [id number] TAKE 1 Univers 800 mg 06 TABLET BY ity of tablet 00:00: MOUTH [place] [address] THREE Medical TIMES Branch DAILY semaglutide Yes [id number] .25mg inject Univers (OZEMPIC) 8-17 0.25 mg ity of 0.25 mg or 00:00: [place] the [place] 0.5 mg(2 00 skin Medical mg/1.5 mL) weekly. Branch PnIj semaglutide Yes [id number] .25mg inject Univers (OZEMPIC) 8-17 0.25 mg ity of 0.25 mg or 00:00: [place] the [place] 0.5 mg(2 00 skin Medical mg/1.5 mL) weekly. Branch PnIj insulin 2021- No 10U 10 Units, Univ ers regular 11-22- Slow IV ity of human 22:30: 21:59 Push, [place] (HUMULIN R) 00 :00 ONCE, 1 Medic al injection dose, On Branch 10 Units 11/22/21 at 1730, Routine NaCl 0.9% 2021- No 1000mL at 999 Uni vers (NS) bolus 11-22 mL/hr, ity of infusion 22:30: 23:20 1,000 mL, [place] 1,000 mL 00 :00 IV Medical Infusion, [place] ONCE, 1 dose, On 11/22/21 at 1730, TRANG flash Yes [id number] 1{each} Apply 1 U nivers glucose 5-20 Each to ity of sensor 00:00: skin every [place] (FREESTYLE 00 14 Medical RASHARD 2 (fourteen) Branch SENSOR) Kit days. Dx E11.9 flash Yes [id number] 1{each} 1 Each Un cali glucose 5-20 daily. Dx ity of scanning 00:00: E11.9 [place] reader 00 Medical (FREESTYLE Branch RASHARD 2 READER) Misc insulin NPH Yes [id number] 45U inject Univers and regular 5-20 45-55 ity of human 70-30 00:00: Units [place] (NOVOLIN 00 under the Medica l 70/30 U-100 skin 2 Branch INSULIN) (two) 100 unit/mL times (70-30) daily injection before breakfast and dinner. atorvastati Yes 80mg Take 1 Univ ers n 80 mg 5-20 tablet by ity of tablet 00:00: mouth at [place] 00 bedtime. Medical Branch Blood-Gluco Yes [id number] Use 3 Univers se Meter 5-20 times ity of (TRUE 00:00: daily. Dx [place] METRIX 00 E11.9 Medical GLUCOSE Branch METER) Mis blood sugar Yes [id number] Use 3 Univers diagnostic 5-20 times ity of (TRUE 00:00: daily. Dx [place] METRIX E11.9 Medical GLUCOSE Branch TEST STRIP) strip flash 2021-0 Yes [id number] 1{each} Apply 1 U nivers glucose 5-20 Each to ity of sensor 00:00: skin every [place] (FREESTYLE 00 14 Medical RASHARD 2 (fourteen) Branch SENSOR) Kit days. Dx E11.9 flash 2021-0 Yes [id number] 1{each} 1 Each Un cali glucose 5-20 daily. Dx ity of scanning 00:00: E11.9 [place] reader 00 Medical (FREESTYLE Branch RASHARD 2 READER) Misc insulin NPH Yes [id number] 45U inject Univers and regular 5-20 45-55 ity of human 70-30 00:00: Units (NOVOLIN 00 under the Medica l 70/30 U-100 skin 2 Branch INSULIN) (two) 100 unit/mL times (70-30) daily injection before breakfast and dinner. atorvastati Yes 80mg Take 1 Univ ers n 80 mg 5-20 tablet by ity of tablet 00:00: mouth at [place] 00 bedtime. Medical Branch Blood-Gluco Yes [id number] Use 3 Univers se Meter 5-20 times ity of (TRUE 00:00: daily. Dx [place] METRIX E11.9 Medical GLUCOSE Branch METER) Mis blood sugar Yes [id number] Use 3 Univers diagnostic 5-20 times ity of (TRUE 00:00: daily. Dx [place] METRIX 00 E11.9 Medical GLUCOSE Branch TEST STRIP) strip flash 2021-0 Yes [id number] 1{each} Apply 1 U nivers glucose 5-20 Each to ity of sensor 00:00: skin every [place] (FREESTYLE 00 14 Medical RASHARD 2 (fourteen) Branch SENSOR) Kit days. Dx E11.9 flash 2021-0 Yes [id number] 1{each} 1 Each Un cali glucose 5-20 daily. Dx ity of scanning 00:00: E11.9 [place] reader 00 Medical (FREESTYLE Branch RASHARD 2 READER) Misc insulin NPH 0 Yes [id number] 45U inject Univers and regular 5-20 45-55 ity of human 70-30 00:00: Units (NOVOLIN 00 under the Medica l 70/30 U-100 skin 2 Branch INSULIN) (two) 100 unit/mL times (70-30) daily injection before breakfast and dinner. atorvastati 0 Yes 80mg Take 1 Univ ers n 80 mg 5-20 tablet by ity of tablet 00:00: mouth at [place] 00 bedtime. Medical Branch Blood-Gluco 0 Yes [id number] Use 3 Univers se Meter 5-20 times ity of (TRUE 00:00: daily. Dx [place] METRIX 00 E11.9 Medical GLUCOSE Branch METER) Misc blood sugar 0 Yes [id number] Use 3 Univers diagnostic 5-20 times ity of (TRUE 00:00: daily. Dx [place] METRIX 00 E11.9 Medical GLUCOSE Branch TEST STRIP) strip flash 0 Yes [id number] 1{each} Apply 1 U nivers glucose 5-20 Each to ity of sensor 00:00: skin every [place] (FREESTYLE 00 14 Medical RASHARD 2 (fourteen) Branch SENSOR) Kit days. Dx E11.9 flash 0 Yes [id number] 1{each} 1 Each Un cali glucose 5-20 daily. Dx ity of scanning 00:00: E11.9 [place] reader 00 Medical (FREESTYLE Branch RASHARD 2 READER) Misc insulin NPH 0 Yes [id number] 45U inject Univers and regular 5-20 45-55 ity of human 70-30 00:00: Units (NOVOLIN 00 under the Medica l 70/30 U-100 skin 2 Branch INSULIN) (two) 100 unit/mL times (70-30) daily injection before breakfast and dinner. atorvastati 0 Yes 80mg Take 1 Univ ers n 80 mg 5-20 tablet by ity of tablet 00:00: mouth at [place] 00 bedtime. Medical Branch Blood-Gluco 0 Yes [id number] Use 3 Univers se Meter 5-20 times ity of (TRUE 00:00: daily. Dx [place] METRIX 00 E11.9 Medical GLUCOSE Branch METER) Misc blood sugar 2021-0 Yes [id number] Use 3 Univers diagnostic 5-20 times ity of (TRUE 00:00: daily. Dx [place] METRIX 00 E11.9 Medical GLUCOSE Branch TEST STRIP) strip flash 2021-0 Yes [id number] 1{each} Apply 1 U nivers glucose 5-20 Each to ity of sensor 00:00: skin every [place] (FREESTYLE 00 14 Medical RASHARD 2 (fourteen) Branch SENSOR) Kit days. Dx E11.9 flash 2021-0 Yes [id number] 1{each} 1 Each Un cali glucose 5-20 daily. Dx ity of scanning 00:00: E11.9 [place] reader 00 Medical (FREESTYLE Branch RASHARD 2 READER) Misc insulin NPH Yes [id number] 45U inject Univers and regular 5-20 45-55 ity of human 70-30 00:00: Units [place] (NOVOLIN 00 under the Medica l 70/30 U-100 skin 2 Branch INSULIN) (two) 100 unit/mL times (70-30) daily injection before breakfast and dinner. atorvastati 0 Yes 80mg Take 1 Univ ers n 80 mg 5-20 tablet by ity of tablet 00:00: mouth at [place] 00 bedtime. Medical Branch Blood-Gluco Yes [id number] Use 3 Univers se Meter 5-20 times ity of (TRUE 00:00: daily. Dx [place] METRIX 00 E11.9 Medical GLUCOSE Branch METER) Mis blood sugar 2021-0 Yes [id number] Use 3 Univers diagnostic 5-20 times ity of (TRUE 00:00: daily. Dx [place] METRIX 00 E11.9 Medical GLUCOSE Branch TEST STRIP) strip GABAPENTIN 2021-0 Yes [id number] TAKE 1 Univers 800 mg 2-25 TABLET BY ity of tablet 00:00: MOUTH [place] 00 THREE Medical TIMES Branch DAILY GABAPENTIN 2021-0 Yes [id number] TAKE 1 Univers 800 mg 2-25 TABLET BY ity of tablet 00:00: MOUTH [place] 00 THREE Medical TIMES Branch DAILY GABAPENTIN 2021-0 Yes [id number] TAKE 1 Univers 800 mg 2-25 TABLET BY ity of tablet 00:00: MOUTH [place] 00 THREE Medical TIMES Branch DAILY GABAPENTIN 2021- No [id number] TAKE 1 Univers 800 mg 2-25 09-06 TABLET BY ity of tablet 00:00: 00:00 MOUTH [place] 00 :00 [facility] TIMES [place] DAILY GABAPENTIN 2021- No [id number] TAKE 1 Univers 800 mg 2-25 09-06 TABLET BY ity of tablet 00:00: 00:00 MOUTH [place] 00 :00 [facility] DAILY MIRTAZAPINE 2020-05 Yes [id number] 15mg TAKE 1 Univers 15 mg 2-20 TABLET BY ity of tablet 00:00: MOUTH AT [address] MIRTAZAPINE 2020-05 Yes [id number] 15mg TAKE 1 Univers 15 mg 2-20 TABLET BY ity of tablet 00:00: MOUTH AT [address] MIRTAZAPINE 2020-05 Yes [id number] 15mg TAKE 1 Univers 15 mg 2-20 TABLET BY ity of tablet 00:00: MOUTH AT [address] MIRTAZAPINE 2020-05 Yes [id number] 15mg TAKE 1 Univers 15 mg 2-20 TABLET BY ity of tablet 00:00: MOUTH AT [address] MIRTAZAPINE 2020-05 Yes [id number] 15mg TAKE 1 Univers 15 mg 2-20 TABLET BY ity of tablet 00:00: MOUTH AT [address] ondansetron Yes [id number] 4mg Take 1 Univers 4 mg 8-06 tablet by ity of disintegrat 00:00: mouth [place] ing tablet 00 every 8 Medica l (eight) Branch hours as needed for Nausea and Vomiting (N/V). ondansetron Yes [id number] 4mg Take 1 Univers 4 mg 8-06 tablet by ity of disintegrat 00:00: mouth [place] ing tablet 00 every 8 Medica l (eight) Branch hours as needed for Nausea and Vomiting (N/V). ondansetron Yes [id number] 4mg Take 1 Univers 4 mg 8-06 tablet by ity of disintegrat 00:00: mouth [place] ing tablet 00 every 8 Medica l (eight) Branch hours as needed for Nausea and Vomiting (N/V). ondansetron Yes [id number] 4mg Take 1 Univers 4 mg 8-06 tablet by ity of disintegrat 00:00: mouth [place] ing tablet 00 every 8 Medica l (eight) Branch hours as needed for Nausea and Vomiting (N/V). ondansetron 0 Yes [id number] 4mg Take 1 Univers 4 mg 8-06 tablet by ity of disintegrat 00:00: mouth [place] ing tablet 00 every 8 Medica l (eight) Branch hours as needed for Nausea and Vomiting (N/V). aspirin 81 0 Yes [id number] 81mg Take 1 U nivers mg chewable 7-07 tablet by ity of tablet 00:00: mouth [place] 00 daily. Medical Branch clopidogreL 0 Yes [id number] 75mg Take 1 Univers 75 mg 7-07 tablet by ity of tablet 00:00: mouth [place] 00 daily. Medical Branch aspirin 81 0 Yes [id number] 81mg Take 1 U nivers mg chewable 7-07 tablet by ity of tablet 00:00: mouth [place] 00 daily. Medical Branch clopidogreL 2020-0 Yes [id number] 75mg Take 1 Univers 75 mg 7-07 tablet by ity of tablet 00:00: mouth [place] 00 daily. Medical Branch aspirin 81 0 Yes [id number] 81mg Take 1 U nivers mg chewable 7-07 tablet by ity of tablet 00:00: mouth [place] 00 daily. Medical Branch clopidogreL 2020-0 Yes [id number] 75mg Take 1 Univers 75 mg 7-07 tablet by ity of tablet 00:00: mouth [place] 00 daily. Medical Branch aspirin 81 2020-0 Yes [id number] 81mg Take 1 U nivers mg chewable 7-07 tablet by ity of tablet 00:00: mouth [place] 00 daily. Medical Branch clopidogreL 2020-0 Yes [id number] 75mg Take 1 Univers 75 mg 7-07 tablet by ity of tablet 00:00: mouth [place] 00 daily. Medical Branch aspirin 81 2020-0 Yes [id number] 81mg Take 1 U nivers mg chewable 7-07 tablet by ity of tablet 00:00: mouth [place] 00 daily. Medical Branch clopidogreL 2020-0 Yes [id number] 75mg Take 1 Univers 75 mg 7-07 tablet by ity of tablet 00:00: mouth [place] 00 daily. Medical Branch ezetimibe 2020-0 Yes [id number] 10mg Take 1 U nivers 10 mg 6-18 tablet by ity of tablet 00:00: mouth [place] 00 daily. Medical Branch furosemide 2020-0 Yes [id number] 1 tablet Univers 20 mg 6-18 02 as needed ity of tablet 00:00: for leg swelling Medical Branch ezetimibe 2020-0 Yes [id number] 10mg Take 1 U nivers 10 mg 6-18 tablet by ity of tablet 00:00: mouth [place] 00 daily. Medical Branch furosemide 2020-0 Yes [id number] 1 tablet Univers 20 mg 6-18 02 as needed ity of tablet 00:00: for leg swelling Medical Branch ezetimibe 2020-0 Yes [id number] 10mg Take 1 U nivers 10 mg 6-18 tablet by ity of tablet 00:00: mouth 00 daily. Medical Branch furosemide 2020-0 Yes [id number] 1 tablet Univers 20 mg 6-18 02 as needed ity of tablet 00:00: for leg swelling Medical Branch ezetimibe 2020-0 Yes [id number] 10mg Take 1 U nivers 10 mg 6-18 tablet by ity of tablet 00:00: mouth 00 daily. Medical Branch furosemide 2020-0 Yes [id number] 1 tablet Univers 20 mg 6-18 02 as needed ity of tablet 00:00: for leg swelling Medical Branch ezetimibe 2020-0 Yes [id number] 10mg Take 1 U nivers 10 mg 6-18 tablet by ity of tablet 00:00: mouth [place] 00 daily. Medical Branch furosemide 2020-0 Yes [id number] 1 tablet Univers 20 mg 6-18 02 as needed ity of tablet 00:00: for leg swelling Medical Branch glipiZIDE 2020-0 Yes Type 2 5mg Take 0.5 Un cal[place] 10 mg 5-06 diabetes tablets by ity of tablet 00:00: mellitus [place] 2 [place] 00 with (two) Medical hypoglycemi times Branch a without daily coma, with before long-term breakfast current use and of insulin dinner. mirtazapine 2020-0 Yes History of 15mg Take 1 Univers 15 mg 5-06 depression tablet by ity of tablet 00:00: mouth at [place] 00 bedtime. Medical Branch atorvastati 2020-0 Yes Coronary 80mg Take 1 Univers n 80 mg 5-06 artery tablet by ity o f tablet 00:00: disease [place] 00 involving bedtime. Medica l [place] Branch coronary artery of [place] heart without angina pectoris glipiZIDE Yes Type [...] 00:00: mouth at 00 bedtime. Medical Branch atorvastati Yes Coronary 80mg Take 1 Univers n 80 mg 5-06 artery tablet by ity o f tablet 00:00: disease [place] 00 involving bedtime. Medica l [place] Branch coronary artery of [place] heart without angina pectoris ezetimibe 2020- No [...] :00 involving daily for Medi [place] tablet [place] 30 days. Branch coronary artery of [place] heart without angina pectoris SITagliptin 2020- No [...] :00 involving daily for Medi [place] tablet [place] 30 days. Branch coronary artery of [place] heart without angina pectoris SITagliptin 2020- No [...] 90U inject 90 Univers and regular 09-07 d type 2 Units it y of human 70-30 00:00: 00:00 diabetes under the [place] (NOVOLIN 00 :00 mellitus skin 2 Medic al 70/30 U-100 with (two) Branch INSULIN) hyperglycem times 100 unit/mL ia daily (70-30) before injection breakfast and dinner for 30 days. glipiZIDE 2020- No Uncontrolle 10mg Take 1 Univers 10 mg 09-07 d type 2 tablet by [...] Medical DAILY WITH Branch MEALS pantoprazol Yes [id number] 40mg Take 1 Univers e 40 mg EC 1-11 tablet by ity of tablet 00:00: mouth [place] 00 daily. Medical Branch pantoprazol Yes [id number] 40mg Take 1 Univers e 40 mg EC 1-11 tablet by ity of tablet 00:00: mouth [place] 00 daily. Medical Branch pantoprazol Yes [id number] 40mg Take 1 Univers e 40 mg EC 1-11 tablet by ity of tablet 00:00: mouth [place] 00 daily. [facility] Branch pantoprazol Yes [id number] 40mg Take 1 Univers e 40 mg EC 1-11 tablet by ity of tablet 00:00: mouth [place] 00 daily. [facility] Branch pantoprazol Yes [id number] 40mg Take 1 Univers e 40 mg [...] as 00 :00 involving bedtime. Medica l [place] Branch coronary artery of [place] heart without angina pectoris atorvastati 2020- No Coronary 80mg Take 1 Univers n 80 mg 3-20 05-06 artery tablet by ity of tablet 00:00: 00:00 disease mouth at [place] 00 :00 involving bedtime. Medica l [place] Branch coronary artery of [place] heart without angina pectoris nitroglycer 2018-05 Yes [id number] 1 tab SL Univers in 0.4 mg 0-29 q5min up ity of sublingual 00:00: to 3 doses [place] tablet 00 PRN chest Medical pain, then Branch activate 911. nitroglycer 2018-05 Yes [id number] 1 tab SL Univers in 0.4 mg 0-29 q5min up ity of sublingual 00:00: to 3 doses [place] tablet 00 PRN chest Medical pain, then Branch activate 911. nitroglycer 2018-05 Yes [id number] 1 tab SL Univers in 0.4 mg 0-29 q5min up ity of sublingual 00:00: to 3 doses [place] tablet 00 PRN chest Medical pain, then Branch activate 911. nitroglycer 2018-05 Yes [id number] 1 tab SL Univers in 0.4 mg 0-29 q5min up ity of sublingual 00:00: to 3 doses [place] tablet 00 PRN chest Medical pain, then Branch activate 911. nitroglycer 2018-05 Yes [id number] 1 tab SL Univers in 0.4 mg [...] n Calcium n Calcium Horan Spir it [facility] Lexapro Lexapro Yes [place]ada 1 tablet Com [facility] Metoprolol Metoprolol Yes Dada 1 tablet Common Tartrate Tartrate Horan with food S pirit [facility] Ranexa Ranexa Yes Dada 1 tablet Commo n [facility] Insulin Insulin Yes Dada 60 units Com mon Aspart Prot Aspart Prot Horan BID Spirit & Aspart & Aspart [facility] Aspirin Aspirin Yes Dada 1 tablet Com mon [facility] Gabapentin Gabapentin Yes Dada 1 tablet Common [facility] Furosemide Furosemide Yes Dada 1 tablet Common [facility] Duloxetine Duloxetine Yes Dada 1 capsule Common HCl HCl [facility] Xanax Xanax Yes [place]ada 1 tablet Common [facility] Clopidogrel Clopidogrel Yes Dada 1 tablet Common Bisulfate Bisulfate [facility] Metformin Metformin Yes Dada 1 tablet Common HCl HCl Horan with meals [facility] Pantoprazol Pantoprazol Yes Dada 1 tablet Common e Sodium e Sodium Horan [facility] Klor-Con Klor-Con Yes Dada 1 tablet C ommon M10 M10 Horan with food [facility] Duloxetine Duloxetine Yes Dada 1 capsule Common HCl HCl Horan [facility] Levetiracet Levetiracet Yes Dada 1 tablet Common am am Horan [facility] Freeport Freeport Yes Dada 1 tablet Common Horan as needed [facility] Lexapro Lexapro Yes Dada 1 tablet Com mon Horan [facility] Atorvastati Atorvastati Yes Dada 1 tablet Common n Calcium n Calcium [facility] Clopidogrel Clopidogrel Yes Dada 1 tablet Common Bisulfate Bisulfate [facility] Furosemide Furosemide Yes Dada 1 tablet Common Horan [facility] Immunizations Ordered Filled Immunization Date Status Comments Sourc e Immunization Name Name SARS-COV-2 COVID-19 2021-01-17 Completed Unive rsity of PFIZER VACCINE 00:00:00 [facility] SARS-COV-2 COVID-19 2021-01-17 Completed Unive rsity of PFIZER VACCINE 00:00:00 [facility] SARS-COV-2 COVID-19 2021-01-17 Completed Unive rsity of PFIZER VACCINE 00:00:00 [facility] SARS-COV-2 COVID-19 2021-01-17 Completed Unive rsity of PFIZER VACCINE 00:00:00 [facility] SARS-COV-2 COVID-19 2021-01-17 Completed Unive rsity of PFIZER VACCINE 00:00:00 [facility] Vital Signs Vital Name Observation Time Observation Value Comments Source Heart rate 2021-11-22 23:40:00 84 /min [facility] Respiratory rate 2021-11-22 23:40:00 22 /min [facility] Oxygen saturation in 2021-11-22 23:40:00 97 /min [facility] of Arterial blood by [facility] blanquita Pulse oximetry Branch Systolic blood 2021-11-22 23:30:00 135 mm[Hg] Univer sity of pressure [facility] Diastolic blood 2021-11-22 23:30:00 82 mm[Hg] Unive rsity of pressure [facility] Body temperature 2021-11-22 21:25:00 36.83 [place] Univ ersity of [facility] Body weight 2021-11-22 21:25:00 53.978 kg [facility] [place] [facility] BMI 2021-11-22 21:25:00 20.43 kg/m2 Universi ty of [facility] Systolic blood 2021-11-22 19:27:00 131 mm[Hg] Univer sity of pressure [facility] Diastolic blood 2021-11-22 19:27:00 85 mm[Hg] Unive rsity of [facility] Heart rate 2021-11-22 19:27:00 86 /min [facility] [place] [facility] Body height 2021-11-22 19:27:00 162.6 cm [facility] [place] [facility] Body weight 2021-11-22 19:27:00 54.341 kg [facility] BMI 2021-11-22 19:27:00 20.56 kg/m2 Universi ty of [facility] Oxygen saturation in 2021-11-22 19:27:00 96 /min [facility] Arterial blood by [facility] Pulse oximetry Branch Systolic blood 2020-10-01 20:20:00 120 mm[Hg] [facility] of [facility] [place] [facility] Diastolic blood 2020-10-01 20:20:00 80 mm[Hg] Unive rsity of pressure [facility] Heart rate 2020-10-01 20:20:00 60 /min [facility] Systolic blood 2020-10-01 20:20:00 120 mm[Hg] Univer [facility]ity of [facility] Diastolic blood 2020-10-01 20:20:00 80 mm[Hg] Unive rsity of pressure [facility] Heart rate 2020-10-01 20:20:00 60 /min Universi [facility] of [facility] Procedures Procedure Date / Time Performing Clinician Source Performed COMP. METABOLIC PANEL 2021-11-22 22:31:00 Fabby Rivera [facility] ([id number]) [facility] [place] AC PANEL 21 + LACTIC ACID 2021-11-22 21:55:[address] [facility] CBC WITH DIFF 2021-11-22 21:54:00 Fabby Rivera [facility] URINALYSIS 2021-11-22 21:54:00 Fabby Rivera [facility] NOTICE OF PRIVACY 2021-11-22 21:18:55 Doctor Unassigned, [facility] PRACTICES [place] [facility] MEDICATION CORRESPONDENCE 2021-10-20 05:01:00 Doctor Unassigned, [facility] [place] [facility] Plan of Care Planned Activity Planned Date Details Comments Source Future Scheduled 2022 Screening for [facility] Test 00:00:00 malignant neoplasm of Medica l Branch colon (procedure) [code = 622687271] Future Scheduled 2022 Screening for [facility] Test 00:00:00 malignant neoplasm of Medica l Branch colon (procedure) [code = 612937112] Future Scheduled 2021-09-07 Creatinine [facility] Test 00:00:00 measurement Medical Branch (procedure) [code = 16412981] Future Scheduled 2021-09-07 Creatinine [facility] Test 00:00:00 measurement Medical Branch (procedure) [code = 26259098] Future Scheduled 2021-09-05 Calculated low [facility] [place] Test 00:00:00 density lipoprotein Medical Branch cholesterol level (procedure) [code = 161299429] Future Scheduled 2021-09-05 Calculated low [facility] [place] Test 00:00:00 density lipoprotein Medical [facility] cholesterol level (procedure) [code = 749351357] Future Scheduled 2021-05-08 Depression screening [facility] [place] Test 00:00:00 (procedure) [code = Medical Branch 366528577] Future Scheduled 2021-05-08 Depression screening [facility] [place] Test 00:00:00 (procedure) [code = Medical Branch 556141423] Future Scheduled 2021-03-07 Hemoglobin A1c [facility] [place] Test 00:00:00 measurement Medical [facility] (procedure) [code = 01197216] Future Scheduled 2021-03-07 Hemoglobin A1c [facility] [place] Test 00:00:00 measurement Medical Branch (procedure) [code = 56624968] Future Scheduled 2021-01-27 [facility]:00:00 (Season Ended) [code Medical Branch = INFLUENZA VACCINE (Season Ended)] Future Scheduled 2021-01-27 INFLUENZA VACCINE [facility] Test 00:00:00 (Season Ended) [code Medical Branch = INFLUENZA VACCINE (Season Ended)] Future Scheduled 2020-10-31 Screening for [facility] Test 00:00:00 malignant neoplasm of Medica l Branch breast (procedure) [code = 412898352] Future Scheduled 2020-10-31 Screening for [facility] Test 00:00:00 malignant neoplasm of Medica l Branch breast (procedure) [code = 368478370] Future Scheduled 2020-09-25 Screening for [facility] Test 00:00:00 malignant neoplasm of Medica l Branch cervix (procedure) [code = 016979171] Future Scheduled 2020-09-25 Screening for [facility] Test 00:00:00 malignant neoplasm of Medica l Branch cervix (procedure) [code = 029428214] Future Scheduled 2020-05-10 Diabetic foot [facility] Test 00:00:00 examination Medical Branch (regime/therapy) [code = 641810852] Future Scheduled 2020-05-10 Diabetic foot [facility] Test 00:00:00 examination Medical Branch (regime/therapy) [code = 204371029] Future Scheduled 2019-09-01 Microalbumin [facility] Test 00:00:00 measurement, urine, Medical Branch quantitative (procedure) [code = 112744922] Future Scheduled 2019-09-01 Microalbumin [facility] Test 00:00:00 measurement, urine, Medical Branch quantitative (procedure) [code = 580654474] Future Scheduled 1991 DTaP,Tdap,and Td Univers [facility] Test 00:00:00 Vaccines (1 - Tdap) Medical Branch [code = DTaP,Tdap,and Td Vaccines (1 - Tdap)] Future Scheduled 1991 DTaP,Tdap,and Td Univers it[facility] Test 00:00:00 Vaccines (1 - Tdap) Medical Branch [code = DTaP,Tdap,and Td Vaccines (1 - Tdap)] Future Scheduled 1990 Hepatitis C screening [facility] [place] Test 00:00:00 (procedure) [code = Medical Branch 028680697] Future Scheduled 1990 Hepatitis C screening [facility] [place] Test 00:00:00 (procedure) [code = Medical Branch 415093733] Future Scheduled 1988 SARS-CoV-2 (COVID-19) [facility] [place] Test 00:00:00 Vaccine (1) [code = Medical Branch SARS-CoV-2 (COVID-19) Vaccine (1)] Future Scheduled 1988 SARS-CoV-2 (COVID-19) [facility] [place] Test 00:00:00 Vaccine (1) [code = Medical Branch SARS-CoV-2 (COVID-19) Vaccine (1)] Future Scheduled 1982 Examination of retina [facility] [place] Test 00:00:00 (procedure) [code = Medical Branch 120851714] Future Scheduled 1982 Examination of retina [facility] [place] Test 00:00:00 (procedure) [code = Medical Branch 372979378] Future Scheduled 1978 PNEUMOCOCCAL 0-64 [facility] [place] Test 00:00:00 YEARS COMBINED SERIES Medica l Branch (1 of 1 - PPSV23) [code = PNEUMOCOCCAL 0-64 YEARS COMBINED SERIES (1 of 1 - PPSV23)] Future Scheduled 1978 PNEUMOCOCCAL 0-64 [facility] [place] Test 00:00:00 YEARS COMBINED SERIES Medica l Branch (1 of 1 - PPSV23) [code = PNEUMOCOCCAL 0-64 YEARS COMBINED SERIES (1 of 1 - PPSV23)] Encounters Start End Encounter Admission Attending Care Care Encounter Source Date/Time Date/Time Type Type Clinicians Facility Department ID 2022-04-15 2022-04-15 Outpatient R BAKARI [facility] [id number] Univers 16:00:00 16:00:00 ANYA [id number] ity of [facility] 2022-01-31 2022-01-31 Amy Zavala [facility] [id number] Univers 00:00[facility]00 [facility] [id number] ity of [place] 4.2.7.2.686 Raffy as DILLAN?BLEA [phone] [address] MEDICAL OFFICE [facility] 2022-01-31 2022-01-31 Telephone [facility] [id number] Univers 00:00:00 00:00:00 Belen HEALTH [id number] it y of [place] 4.2.7.2.686 Raffy as DILLAN?BLEA [id number] [address] OFFICE [facility] 2022-01-21 2022-01-21 Outpatient R BAKARI [facility] [id number] Univers 12:00:00 12:00:00 ANYA turner [facility] 2022-01-12 2022-01-12 Outpatient R NEO KNUTSON [facility] [id number] Univers 16:00:00 16:00:00 NEO KNUTSON [facility] 2021-11-22 2021-11-22 Emergency [facility] [id number] Univers 16:27:00 18:56:00 FABBY turner [facility] 2021-11-22 2021-11-22 Emergency [facility] [id number] Univers 16:27:00 18:56:00 Fabby CHAN [id number] ity [facility] [id number] [place] [facility] [phone] [address] 2021-11-22 2021-11-22 Office [facility] [id number] Univers 14:30:00 16:04:36 Visit [facility] [id number] it y of [place] [id number] Raffy as DILLAN?BLEA [phone] [address] OFFICE [facility] 2021-11-22 2021-11-22 [facility] [id number] Univers 14:30:00 16:04:36 BELEN [facility] 2021-10-20 2021-10-20 Orders Doctor TOM [id number] Univers 00:00:00 00:00:00 Only Unassigned, ARTURO [id number] ity of [place] [facility] [id number] Raffy as [phone] [place] [address] Branch 2020-10-01 2020-10-01 Office Lucas ILMINDY [id number] 15:08:27 16:09:31 Visit Dev Avery [facility] [id number] [place] [id number] Professio [phone] nal [address] 2018-06-27 2018-06-27 Outpatient [facility] [id number] Common 11:57:00 11:57:[address] [facility] 2018-06-15 2018-06-15 Outpatient [facility] [id number] Common 16:24:00 16:24:[address] [facility] 2018-06-13 2018-06-13 Outpatient [facility] [id number] Common 13:30:00 13:30:[address] [facility] 2017-12-12 2017-12-12 Outpatient [facility] [id number] Common 13:22:00 13:22:[address] [facility] 2017-11-20 2017-11-20 Outpatient [facility] [id number] Common 10:30:00 10:30:[address] [facility] 2017-11-02 2017-11-02 Outpatient [facility] [id number] Common 15:15:00 15:15:[address] [facility] Results Test Description Test Time Test Comments Results Result Comments Source COMP. METABOLIC PANEL (92123) 2021-11-22 22:53:59 Test Item Value Reference Range Interpretation Comme nts NA (test code = 4494790171) 134 mmol/L 135-145 L K (test code = 0445373813) 3.3 mmol/L 3.5-5.0 L CL (test code = 4266390193) 104 mmol/L 98-108 CO2 TOTAL (test code = 8092847653) 23 mmol/L 23-31 AGAP (test code = 6207936617) 2-16 BUN (test code = 0408177784) 11 mg/dL 7-23 GLUCOSE (test code = 6730942883) 337 mg/dL 70-110 H CREATININE (test code = 0.56 mg/dL 0.50-1.04 0384046475) TOTAL BILI (test code = 0.6 mg/dL 0.1-1.0 6115367742) CALCIUM (test code = 6599085052) 8.1 mg/dL 8.6-10.6 L T PROTEIN (test code = 4773323560) 5.8 g/dL 6.3-8.2 L ALBUMIN (test code = 3249312736) 3.0 g/dL 3.5-5.0 L ALK PHOS (test code = 7420285261) 128 U/L 34-122 H ALTv (test code = 1742-6) 11 U/L 5-35 AST(SGOT) (test code = 0984512775) 14 U/L 13-40 eGFR (test code = 4495214713) mL/min/1.73m2 NISHA (test code = NISHA) Association [...] tests). Lab Interpretation (test code = Abnormal 82198-4) [facility] WITH [id number] 22:08:12 Test Item Value Reference Range Interpretation [...] (test code = 38.5 fL 39.0-49.9 L 00266-6) RDW-CV (test code = 12.1 % 12.0-15.5 788-0) PLT (test code = See_Comment H [Automated 777-3) message] The sy stem which generated this result transmitted reference range : 166 - 358 10*3/ ?L. The reference r chelsie was not used to interpret this result as normal/abnormal . MPV (test code = 10.5 fL 9.5-12.9 86485-7) NRBC/100 WBC (test See_Comment [Automat ed code = 8315514151) message] The system which generated this result transmitted reference range : 0.0 - 10.0 /100 WBCs. The refer ence range was not u sed to interpret th is result as normal/abnormal . NRBC x10^3 (test code <0.01 See_Comment [Auto mated = 7356664593) message] The s ystem which generated this result transmitted reference range : 10*3/?L. The reference range was not used to interpret this result as normal/abnormal . GRAN MAT (NEUT) % 63.7 % (test code = 770-8) IMM GRAN % (test code 0.50 % = 5554739233) LYMPH % (test code = 28.7 % 736-9) MONO % (test code = 4.5 % 5905-5) EOS % (test code = 1.9 % 713-8) BASO % (test code = 0.7 % 706-2) GRAN MAT x10^3(ANC) 5.65 10*3/uL 1.88-7.09 (test code = 1814764426) IMM GRAN x10^3 (test 0.04 10*3/uL 0.00-0.06 code = 6698393894) LYMPH x10^3 (test code 2.54 10*3/uL 1.32-3.29 = 731-0) MONO x10^3 (test code 0.40 10*3/uL 0.33-0.92 = 742-7) EOS x10^3 (test code = 0.17 10*3/uL 0.03-0.39 711-2) BASO x10^3 (test code 0.06 10*3/uL 0.01-0.07 = 704-7) Lab Interpretation Abnormal (test code = 50028-2) [facility]"
[2022-02-08] MEDS ORDERED: LIDOCAINE 1% MPF 5 ML VIAL ONE (20:53)
[2022-02-08] MEDS ORDERED: BUPIVACAINE 0.5% PF 10 ML VIAL ONE (20:53)
--- NOTE | 2022-02-08 21:02 | RAD REPORT ---
EXAM DESCRIPTION: RAD - Foot Left 3 View - 02/08/2022 8:54 pm CLINICAL HISTORY: PAIN COMPARISON: No comparisons FINDINGS: Diffuse osteopenia is seen. Moderate posterior and plantar calcaneal spurs. No acute fract ure or dislocation seen.
--- NOTE | 2022-02-08 22:03 | ER ---
Nurse's Notes [facility] Name: Karen Shah Age: 51 yrs Sex: Female : 1970 Arrival Date: 02/08/2022 Time: 19:05 Bed 26 Private MD: Diagnosis: Left Third Toe Nail Avulsion Presentation: 02/08 19:56 Chief complaint: Patient states: hurt her toenail last night, and is scared because she jh5 is a diabetic. Pt has a bandaid on toenail and states the nail is hanging on by small slice of skin....and it hurts. Coronavirus screen: Vaccine status: Patient reports receiving the 2nd dose of the covid vaccine. Client denies travel out of the [place] in the last 14 days. Ebola Screen: Patient negative for fever greater than or equal to 101.5 degrees Fahrenheit, and additional compatible Ebola Virus Disease symptoms Patient denies exposure to infectious person. Patient denies travel to an Ebola-affected area in the 21 days before illness onset. Initial Sepsis Screen: Does the patient meet any 2 criteria? No. Patient's initial sepsis screen is negative. Does the patient have a suspected source of infection? No. Patient's initial sepsis screen is negative. Risk Assessment: Do you want to hurt yourself or someone else? Patient reports no desire to harm self or others. Onset of symptoms. 19:56 Method Of Arrival: Wheelchair [facility] 19:56 Acuity: ARIEL 3 jh5 Triage Assessment: 20:00 General: Appears in no apparent distress. Behavior is calm, cooperative, appropriate 5 for age. Pain: Complains of pain in left foot. 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 Denies injuries from another. Nutritional ll3 screening: No deficits noted. Tuberculosis screening: No symptoms or risk factors identified. 22:23 Fall Risk No fall in past 12 months (0 pts). No secondary diagnosis (0 pts). No IV (0 ll3 pts). Ambulatory Aid- Crutches/Cane/Walker (15 pts). Gait- Impaired (20 pts.). Mental Status- Oriented to own ability (0 pts). Total Mccall Fall Scale indicates Low Risk Score (25-44 pts). Fall prevention measures have been instituted. Side Rails Up X 2 Family Present and informed to notify staff if they need to leave bedside As available Patient and Family Educated on Fall Prevention Program and strategies. Assessment: 20:21 General: Appears uncomfortable, Behavior is calm, cooperative. Pain: Complains of pain ll3 in left foot. Neuro: Level of Consciousness is awake, alert, obeys commands, Oriented to person, place, time, situation. Respiratory: Respiratory effort is even, unlabored, Respiratory pattern is regular, symmetrical. Derm: Left second toenail hanging on by a thin piece of skin, pt state she went to cut toenail and noticed the whole nail coming off. 21:15 Reassessment: No changes from previously documented assessment. Patient and/or family ll3 updated on plan of care and expected duration. Pain level reassessed. Patient is alert, oriented x 3, equal unlabored respirations, skin warm/dry/pink. 22:23 Reassessment: No changes from previously documented assessment. Patient and/or family ll3 updated on plan of care and expected duration. Pain level reassessed. Patient is alert, oriented x 3, equal unlabored respirations, skin warm/dry/pink. Vital Signs: 19:56 BP 127 / 83; Pulse 92; Resp 16; Temp 98.6; Pulse Ox 100% ; Weight 53.52 kg; Height 5 [facility] ft. 4 in. (162.56 cm); Pain 6/10; 21:15 BP 122 / 91; Pulse 90; Resp 16; Pulse Ox 99% on R/A; ll3 22:23 BP 124 / 88; Pulse 91; Resp 16; Pulse Ox 100% on R/A; ll3 19:56 Body Mass Index 20.25 (53.52 kg, 162.56 cm) [facility] ED Course: 19:05 Patient arrived in ED. bp1 19:59 Triage completed. 5 20:00 Arm band placed on right wrist. [facility] 20:01 Isidro Mcdaniel PA is PHCP. cp 20:01 Anatoly Ryan MD is Attending Physician. cp 20:56 XRAY Foot LEFT 3 View In Process Unspecified. EDMS 21:15 Yahaira Flower, RN is Primary Nurse. ll3 22:22 No provider procedures requiring assistance completed. Patient did not have IV access ll3 during this emergency room visit. 22:23 Patient has correct armband on for positive identification. Bed in low position. Call ll3 light in reach. Side rails up X2. Adult w/ patient. Administered Medications: 22:21 Drug: Marcaine (bupivacaine) (0.5 %) 10 ml {Note: Administered by ALVARADO Smith.} ll3 Volume: 10 ml; Route: Infiltration; 22:22 Drug: Lidocaine (1 %) 10 ml {Note: Administered by PA. Sarah} Volume: 20 ml; ll3 Route: Infiltration; Medication: 22:23 VIS not applicable for this client. ll3 Outcome: 22:03 Discharge ordered by . cp 22:22 Discharged to home via wheelchair, with family. ll3 22:22 Condition: stable 22:22 Discharge instructions given to patient, significant other, Instructed on discharge instructions, follow up and referral plans. medication usage, Demonstrated understanding of instructions, follow-up care, medications, Prescriptions given X 1. 22:24 Patient left the ED. ll3 Signatures: Dispatcher [employer] EDMS Isidro Mcdaniel PA PA cp [place], Brittany bp1 Rees, Jessica RN RN [facility] Yahaira Flower, CHIDI RN ll3 Corrections: (The following items were deleted from the chart) 20:42 20:34 In radiology for Foot Left 2 View+RAD.RAD.BRZ. EDMS EDMS
--- NOTE | 2022-02-08 22:04 | EDPHYS ---
Physician Documentation [facility] Name: Karen Shah Age: 51 yrs Sex: Female : 1970 Arrival Date: 02/08/2022 Time: 19:05 Bed 26 Private MD: ED Physician Anatoly Ryan HPI: 02/08 20:35 This 51 yrs old Female presents to ER via Wheelchair with complaints of Leg cp Pain, Toe Pain. 20:35 The patient presents with pain, that is acute, injury to nail of left third toe. The cp complaints affect the left foot. Context: resulted from an unknown cause. Onset: The symptoms/episode began/occurred yesterday. Associated signs and symptoms: The patient has no apparent associated signs or symptoms. Patient reports she was going to trim nails of left foot and noticed nail of left third toe was coming off. 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 cp 20:40 MS/extremity: Positive for pain, of the left foot, Negative for injury or acute cp deformity. 20:40 Skin: Negative for cellulitis, rash. 20:40 All other systems are negative. Exam: 20:45 Constitutional: The patient appears in no acute distress, alert, awake, non-toxic, well cp developed, well nourished, uncomfortable. 20:45 Head/Face: Normocephalic, atraumatic. cp 20:45 Chest/axilla: Inspection: normal. 20:45 Cardiovascular: Rate: normal, Rhythm: regular, Pulses: Pulses are 2+ in left dorsalis pedis artery. 20:45 Respiratory: the patient does not display signs of respiratory distress, Respirations: normal, no use of accessory muscles, no retractions. 20:45 Abdomen/GI: Inspection: abdomen appears normal. 20:45 Musculoskeletal/extremity: Extremities: noted in the left foot: There is no evidence of deformity, erythema, swelling, tenderness, the left foot Sensation intact. Nails: partial avulsion, of the left third toe. Vital Signs: 19:56 BP 127 / 83; Pulse 92; Resp 16; Temp 98.6; Pulse Ox 100% ; Weight 53.52 kg; Height 5 jh5 ft. 4 in. (162.56 cm); Pain 6/10; 21:15 BP 122 / 91; Pulse 90; Resp 16; Pulse Ox 99% on R/A; ll3 22:23 BP 124 / 88; Pulse 91; Resp 16; Pulse Ox 100% on R/A; ll3 19:56 Body Mass Index 20.25 (53.52 kg, 162.56 cm) jh5 MDM: 20:07 Patient medically screened. cp 22:03 Data reviewed: vital signs, nurses notes, radiologic studies, plain films, and as a cp result, I will discharge patient. 22:03 Differential diagnosis: dislocation, open fracture, closed fracture, contusion. Test cp interpretation: by ED physician or midlevel provider: plain radiologic studies. Counseling: I had a detailed discussion with the patient and/or guardian regarding: the historical points, exam findings, and any diagnostic results supporting the discharge/admit diagnosis, radiology results, the need for outpatient follow up, a family practitioner, to return to the emergency department if symptoms worsen or persist or if there are any questions or concerns that arise at home. Response to treatment: the patient's symptoms have markedly improved after treatment, and as a result, I will discharge patient. ED course: VSS. Digital block performed using 5 ccs mixture 1% lidocaine w/o epi and 0.5% marcaine. Nail removed using hemostats and replaced with single figure eight stitch. Patient tolerated well. 02/08 20:31 Order name: XRAY Foot LEFT 3 View; Complete Time: 21:32 cp 02/08 21:32 Interpretation: Reviewed report. cp 02/08 22:01 Order name: Wound dressing; Complete Time: 22:21 cp Administered Medications: 22:21 Drug: Marcaine (bupivacaine) (0.5 %) 10 ml {Note: Administered by ALVARADO Smith.} ll3 Volume: 10 ml; Route: Infiltration; 22:22 Drug: Lidocaine (1 %) 10 ml {Note: Administered by ALVARADO Smith.} Volume: 20 ml; ll3 Route: Infiltration; Disposition Summary: 02/08/22 22:03 Discharge Ordered Location: Home cp Problem: new cp Symptoms: have improved cp Condition: Stable cp Diagnosis - Left Third Toe Nail Avulsion cp Followup: cp - With: Private Physician - When: 7 - 10 days - Reason: Staple/Suture removal Discharge Instructions: - Discharge Summary Sheet cp - Nail Avulsion cp - Fingernail or Toenail Removal, Adult cp Forms: - Medication Reconciliation Form cp - Thank You Letter cp - Antibiotic Education cp - Prescription Opioid Use cp Prescriptions: - Cephalexin 500 mg Oral Capsule - take 1 capsule by ORAL route every 8 hours for 10 days; 30 capsule; Refills: 0, cp Product Selection Permitted Signatures: Dispatcher [employer] EDMS Isidro Mcdaniel PA PA cp Rees, Jessica RN RN jh5 Yahaira Flower RN RN ll3 Corrections: (The following items were deleted from the chart) 20:42 20:19 Foot Left 2 View+[email or web address] ordered. EDMS EDMS
[2022-02-09 13:15] VITALS: TEMP 98.6
[2022-02-09 13:30] VITALS: BP 124/88; O2SAT 100
== END 2022-02-08 22:24 | disposition home or self-care (01) ==
LOC: ER 18:50
DX: S91.205A Unspecified open wound of left lesser toe(s) with damage to nail, initial encounter (principal)
CPT/HCPCS: 73630; J2001; 99283

== ENCOUNTER 2022-04-05 10:31 | Inpatient (IN) | payer OTHER ==
--- OUTSIDE RECORDS SUMMARY | 2022-04-05 14:20 | XMS REPORT | Continuity of Care Document ---
:1970 Author Organization [facility] t Address [address] [place] [address] Care Team Providers Name Role Phone Igor BROWN, Rashad Avery Primary Care Physician [phone] Jian Marilu MARIANO Attending Clinician Che Barlow MD Attending Clinician George Barrett DO Attending Clinician Rachelle Guthrie DO Attending Clinician Alden Garcia MD Attending Clinician Tyler BROWN, Ryanne Meadows Attending Clinician [phone] Trace BROWN, Darrel A Attending Clinician Carine BROWN, Sharath Attending Clinician Alonso BROWN, Jeff Montero Attending Clinician Luis Benitez DO Attending Clinician RACHELLE GUTHRIE Attending Clinician Unavailable KATHI WOODARD Attending Clinician Unavailable Anatoly Flores MD Attending Clinician Rashad Costa MD Attending Clinician Madi Padilla Attending Clinician ANATOLY FLORES Attending Clinician Unavailable Doctor Unassigned, [place] Attending Clinician Unavailable NEO KNUTSON Attending Clinician Unavailable NEO KNUTSON Attending Clinician Unavailable FABBY RIVERA Attending Clinician Unavailable Fabby Rivera DO Attending Clinician MADI ASTORGA Attending Clinician Unavailable Bang PIANO TECHNICIAN, Adeola Attending Clinician Lab, Ang - Db Attending Clinician Unavailable ADEOLA CUENCA Attending Clinician Unavailable RASHAD COSTA Attending Clinician Unavailable Phyllis Daniel RN Attending Clinician Unavailable Celso Duran DO Attending Clinician Gregory BROWN, Lily Attending Clinician LILY JENKINS Attending Clinician Unavailable Marquise DOTSON, Ra Platt Attending Clinician [phone] Han BROWN, Anmol Lara Attending Clinician [phone] Hosea BROWN, Lesia Wright Attending Clinician [phone] Pcp, Patient Does Not Have A Attending Clinician [phone] Vance BROWN, Kathi Attending Clinician Garcia Gonzalez RN Attending Clinician Unavailable Jeanmarie PIANO TECHNICIAN, Ronnie F Attending Clinician Enzo BROWN, Melly Pham Attending Clinician Alessandra BROWN, Elyse Attending Clinician Jay England MD Attending Clinician Sisi Salinas MD Attending Clinician SISI SALINAS Attending Clinician Unavailable Serena Garsia MD Attending Clinician 1, Adc Lab Attending Clinician Unavailable ERNST BOATENG Attending Clinician Unavailable Ernst Boateng PA-C Attending Clinician 2, Adc Lab Attending Clinician Unavailable Jessica Chávez RN Attending Clinician RHIANNA ROMANO Attending Clinician Unavailable Juan Antonio BROWN, Rhianna Attending Clinician ALDEN GARCIA Admitting Clinician Unavailable Celso Duran DO Admitting Clinician Marquise DOTSON, Ra Platt Admitting Clinician [phone] Jay England MD Admitting Clinician ERNST BOATENG Admitting Clinician Unavailable RHIANNA ROMANO Admitting Clinician Unavailable Rhianna Romano MD Admitting Clinician Payers Payer Name Policy Type Policy Number Effective Date Expiration Date S ource Problems Condition Condition Condition Status Onset Resolution Last Treating Co mments Source Name Details Category Date Date Treatment Clinician Date Cellulitis Cellulitis Disease Active 2021-05 U nivers of middle of middle 0-22 ity of toe[place] Morbid Morbid Disease Active 2021-05 Univers obesity obesity 0-22 ity of with body with body [place] mass index mass index 00 Me dical of 50 or of 50 or Branch higher higher UTI UTI Disease Active Univers (urinary (urinary 8-20 ity of tract tract 00:00: [place] infection) infection) 00 Me dical Branch Dizziness Dizziness Disease Active Uni vers 8-20 ity of 00:00: Medical Branch Weakness Weakness Disease Active Unive rs 8-20 ity of 00:00: [place] 00 Medical Branch CAD in CAD in Disease Active Univers campo campo 7-05 ity of artery artery 00:00: 00 Medical Branch Hypoglycem Hypoglycem Disease Active U nivers ia ia 6-11 ity of 00:00: [place] 00 Medical Branch 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 5-06 it y of on on 00:00: Medical Branch Poor Poor Disease Active Univers appetite appetite 5-06 ity of 00:00: 00 Medical Branch Hypoalbumi Hypoalbumi Disease Active U vinicioers nemia nemia 5-06 ity of 00:00: [place] 00 Medical Branch Hyperglyce Hyperglyce Disease Active U nivers filomena filomena 4-11 ity of 00:00: [place] [facility] Complicate Complicate Disease Active U [...] 00:00: [place] involving involving 00 Medi blanquita [place] Branch coronary coronary artery of artery of campo [place]o heart heart without without angina angina pectoris [...] Added automatic ally from request for surgery [id number] GERD GERD Disease Active Univers (gastroeso (gastroeso it y of phageal phageal [place] reflux reflux Medical disease) disease) Branch DM DM Disease Active Univers (diabetes (diabetes ity of mellitus) mellitus) [place] Depression Depression Disease Active U nivers ity of [place] [facility] CVA CVA Disease Active Univers (cerebral (cerebral ity of vascular vascular [place] accident) accident) [facility] CHF CHF Disease Active Univers (congestiv (congestiv it y of e heart e heart [place] failure) failure) Medica l Branch Anxiety Anxiety Disease Active Univers ity of [facility] Angina Angina Disease Active Univers pectoris pectoris ity of [facility] H/O right H/O right Disease Active Uni [...] of on, benign on, benign [place] [facility] [place] Hx of CABG Hx of CABG Disease Active U nivers ity of [facility] Migraines Migraines Disease Active Uni vers ity of [facility] Seizures Seizures Disease Active Unive rs ity of [facility] Unilateral Unilateral Disease Active U nivers AKA, right AKA, right it y of [facility] High High Disease Active Univers cholestero cholestero it y of l l [facility] HTN HTN Disease Active Univers (hypertens (hypertens it y of ion) ion) [facility] History of History of Problem Active C ommon CVA CVA Spirit (cerebrova (cerebrova - [facility] scular scular [facility] accident) accident) [facility] Migraine Migraine Problem Active Commo n without without Spirit aura and aura and - [facility] without without St status status [facility] migrainosu migrainosu Me dical s, not s, not Center intractabl intractabl e e 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 - [facility] with with St hyperglyce hyperglyce 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 involving involving coronary coronary [facility] bypass bypass Medical graft of graft of [place] heart with heart with angina angina pectoris pectoris Dependent Dependent Problem Active Com mon on on Spirit wheelchair wheelchair - [facility] History of History of Problem Active C ommon right right Spirit above knee above knee - [facility] amputation amputation [facility] Allergies, Adverse Reactions, Alerts Allergy Allergy Status Severity Reaction(s) Onset Inactive Treating Comm ents Source Name Type Date Date Clinician Ketorola Propensi Active Hives Univer s c ty to 7-20 ity of Trometha adverse 00:00: [place] mine reaction 00 Medical s [place] Tramadol Propensi Active Hives Univer s ty to 7-20 ity of adverse 00:00: [place] reaction 00 Medical s Branch KETOROLA DRUG Active High Hives Univers C INGREDI 7-20 ity of TROMETHA 00:00: [place] MINE 00 Medical Branch TRAMADOL DRUG Active High Hives 0 Univers INGREDI 7-20 ity of 00:00: [place] 00 [facility] Branch Toradol Adverse Active Info Not Common Reaction Available [facility] tramadol Adverse Active Info Not Commo n Reaction Available [facility] Family History Family Member Diagnosis Comments Start Date Stop Date Source Natural father Diabetes [facility] Natural father Heart [facility] Natural father High cholesterol [facility] Natural father Hypertension Universi ty [facility] Paternal Asthma University of grandmother [facility] Natural sister Hypertension Universi ty [facility] Natural son Diabetes [facility] Family member Arthritis [facility] Family member defects Universi ty [facility] Family member Breast Cancer Universi ty [facility] Family member Cancer [facility] Family member Colon Cancer Universit y [facility] Family member Depression [facility] Family member Genetic [facility] Family member Mental [facility] Family member Neurological Universit y of [facility] Family member Osteoporosis Universit y of [facility] Family member Ovarian Cancer Univers ity of [facility] Family member Psychiatry University of [facility] Family member Uterine Cancer Univers ity of [facility] Social History Social Habit Start Date Stop Date Quantity Comments Source History of tobacco Passive smoker Un iversity of use [facility] Alcohol intake 2022-03-30 2022-03-30 Ex-drinker [facility] 00:00:00 00:00:00 (finding) [facility] Exposure to 2022-03-19 2022-03-29 Not sure [facility] SARS-CoV-2 (event) 00:00:00 07:47:00 [facility] Cigarettes smoked 2022-03-22 2022-03-22 Univers ity of current (pack per 00:00:00 00:00:00 [facility] ) - Reported Branch Tobacco use and 2022-03-22 2022-03-22 Smokeless tobacco Un iversity of exposure 00:00:00 00:00:00 non-user [facility] Tobacco Comment 2022-03-22 2022-03-22 smoking since Uni versity of 00:00:00 00:00:00 years old18 days [facility] dical with out Branch cigarettes Education 2021-01-15 2021-01-[address] [place] [address] 00:00:00 00:00:00 [facility] History SDOH 2020-05-08 2020-05-08 99 University o f Alcohol Frequency 00:00:00 00:00:00 [facility] Branch History SDOH 2020-05-08 2020-05-08 99 University o f Alcohol Std Drinks 00:00:00 00:00:00 [facility] History SDOH 2020-05-08 2020-05-08 99 University o f Alcohol Binge 00:00:00 00:00:00 [facility] Branch Alcohol Comment 2019-10-11 2019-10-11 rare Universit y of 00:00:00 00:00:00 [facility] Sex [birth year] At [birth year] Universit y of 00:00:00 00:00:00 [facility] Smoking Status Start Date Stop Date Source Ex-smoker 2022-03-22 00:00:00 2022-03-22 00:00:00 Universi ty of [facility] Smokes tobacco daily 2020-04-03 00:00:00 Univers ity [place] [facility] Medications Ordered Filled Start Stop Current Ordering Indication Dosage Frequency Signature Comments Components Source Medication Medication Date Date Medication? Clinician (SIG) Name Name HYDROcodone 2021-05 Yes [id number] 1{tbl} Take 1 Un cali -acetaminop 1-07 tablet by ity of hen 10-325 00:00: mouth [place] mg tablet 00 every 4 Medical (four) Branch hours. Indication s: acute pain insulin NPH 2021-05 Yes 39U inject 39 U nivers and regular 1-07 Units ity of human 70-30 00:00: under the [place] (NOVOLIN 00 skin 2 Medical 70/30 U-100 (two) Branch INSULIN) times 100 unit/mL daily (70-30) before injection breakfast and dinner. methocarbam 2021-05 Yes 500mg Take 1 Uni vers oL 500 mg 1-07 tablet by ity o f tablet 00:00: mouth [place] 00 every 6 Medical (six) Branch hours. insulin 2021-05 Yes inject Univers lispro, 1-07 under the ity of human, 100 00:00: skin every [place] unit/mL 00 4 (four) Medical injection hours. [place] methocarbam 2021-05 Yes 500mg 500 mg, Un cali oL 1-02 Oral, QID, ity of (ROBAXIN) 17:00: [place] tablet 500 00 on Mon Medical mg 03/30/22 at Branch 1200, Until Discontinu ed, Routine HYDROcodone 2021-05 Yes 1{tbl} 1 tablet, Univers -acetaminop -02 Oral, Q6H, it y of hen (NORCO) 17:00: First dose [place] 10-325 mg 00 on Mon Medical tablet 1 03/30/22 at Bran h tablet 1200, Until Discontinu ed, Routine morpHINE (2 2021-05 Yes 4mg 4 mg, Slow Univers mg/mL) 02 IV Push, ity of injection 4 15:45: Q3HPRN, [place] mg 00 Starting Medical on Mon Branch 03/30/22 at 1045, Until Discontinu ed, Routine, Pain (scale 7-10) HYDROmorphO 2021-05 Yes .2mg 0.2 mg, Uni vers ne 1- Slow IV ity of (DILAUDID) 17:41: Push, [place] injection 02 Q5MIN PRN, Medi blanquita 0.2 mg 10 doses, Branch Starting on Mon03/29/22 at 1241, Until Discontinu ed, Routine, Pain (scale 7-10), PACU
Us e approved by (Faculty): PACU USE -ANESTHESI A SERVICE-HY DROMORPHON E INJECTIONS iopamidol 2021-05- No ONCE INTRA U nivers (ISOVUE 03-28 PROCEDURE, ity o f 370-500 mL) 20:14: 20:26 [place] injection 06 :03 on [facility] 03/28/22 Branch at 1514, Until Mon03/28/22 at 1526, Routine, CV Intraproce dure lidocaine 2021-05- No ONCE INTRA U nivers 1% (PF) 03-28 PROCEDURE, ity o f (XYLOCAINE) 19:30: 20:26 [place] injection 00 :03 on [facility] 03/28/22 Branch at 1430, Until Mon03/28/22 at 1526, Routine, CV Intraproce dure midazolam 2021-05- No ONCE INTRA U nivers (VERSED) 03-28 PROCEDURE, ity of injection 19:23: 20:26 Starting [place] as 00 :03 on [facility] 03/28/22 Branch at 1423, Until Mon03/28/22 at 1526, Routine, CV Intraproce dure FENTanyl PF 2021-05- No ONCE INTRA Univers (SUBLIMAZE 03-28 PROCEDURE, it y of (PF)) 19:23: 20:26 Starting [place] injection 00 :03 on [facility] 03/28/22 Branch at 1423, Until Mon03/28/22 at 1526, Routine, CV Intraproce dure iodixanoL 2021-05 Yes PRN, Univers (VISIPAQUE 0- Starting ity o f 270-150 mL) 13:52: on Fri [place] injection 00 03/25/22 Medica l at 0852, Branch Until Discontinu ed, Routine, Intra-op lidocaine 2021-05 Yes PRN, Univers 1% (PF) 0-28 Starting ity of (XYLOCAINE) 12:50: on Fri [place] injection 03/25/22 Medica l at 0750, Branch Until Discontinu ed, Routine, Intra-op heparin 2021-05 Yes PRN, Univers 10,000 0-28 Starting ity of units in NS 12:00: on Mon [place] 1000 mL for 03/25/22 Medi blanquita vascular at 0700, Branch Intra-op Sliding 2021-05 Yes Subcutaneo Univ ers Scale 0-27 us, Q4H, ity of Insulin - 21:00: [place] Lispro 00 (after Medical (HumaLOG) + last Branch Fsbg modificati Testing on) on Mon03/24/22 at 1600, Until Discontinu ed, Routine Sliding 2021-05 Yes Subcutaneo Univ ers Scale 0-27 us, Q4H, ity of Insulin - 21:00: First dose [place] Lispro 00 (after Medical (HumaLOG) + last Branch Fsbg modificati Testing on) on Mon03/24/22 at 1600, Until Discontinu ed, Routine Sliding 2021-05 Yes Subcutaneo Univ ers Scale 0-27 us, Q4H, ity of Insulin - 21:00: First dose [place] Lispro 00 (after Medical (HumaLOG) + last Branch Fsbg modificati Testing on) on Mon03/24/22 at 1600, Until Discontinu ed, Routine HYDROcodone 2021-05 Yes 1{tbl} 1 tablet, Univers -acetaminop 0-27 Oral, Q4H, it y of hen (NORCO 17:00: First dose [place] 5) 5-325 mg 00 (after Medica l tablet 1 last Branch tablet modificati on) on Mon03/24/22 at 1200, Until Discontinu ed, Routine HYDROcodone 2021-05 Yes 1{tbl} 1 tablet, Univers -acetaminop 0-27 Oral, Q4H, it y of hen (NORCO 17:00: First dose [place] 5) 5-325 mg 00 (after Medica l tablet 1 last Branch tablet modificati on) on Mon03/24/22 at 1200, Until Discontinu ed, Routine insulin NPH 2021-05 Yes 39U 39 Units, U nivers and regular 0-26 Subcutaneo it y of human 70-30 21:30: [place] (70- 00 First dose Medical U-100 (after Branch INSULIN) last 100 unit/mL modificati (70-30) on) on Mon injection 03/23/22 39 Units at 1630, Until Discontinu ed, Routine insulin NPH 2021-05 Yes 39U 39 Units, U nivers and regular 0-26 Subcutaneo it y of human 21:30: [place], [place] ( 00 First dose Medical U-100 (after Branch INSULIN) last 100 unit/mL modificati () on) on Mon injection 03/23/22 39 Units at 1630, Until Discontinu ed, Routine insulin NPH 2021-05 Yes 39U 39 Units, U nivers and regular 0-26 Subcutaneo it y of human 21:30: [place], [place] ( 00 First dose Medical U-100 (after Branch INSULIN) last 100 unit/mL modificati () on) on Mon injection 03/23/22 39 Units at 1630, Until Discontinu ed, Routine morpHINE (2021-05 Yes 4mg 4 mg, Slow Univers mg/mL) 0-26 IV Push, ity of injection 4 14:51: Q4HPRN, [place] mg 37 Starting Medical on Mon03/23/22 at 0951, Until Discontinu ed, Routine, Pain (scale 7-10) morpHINE (2021-05 Yes 4mg 4 mg, Slow Univers mg/mL) 0-26 IV Push, ity of injection 4 14:51: Q4HPRN, [place] mg 37 Starting Medical on Mon Branch 03/23/22 at 0951, Until Discontinu ed, Routine, Pain (scale 7-10) dextrose 2021-05 Yes 250mL 250 mL, IV Un cali 10% (D10W) 0-25 Infusion, ity of bolus 14:00: PRN - SEE [place] infusion 33 INSTRUCTIO Medic al 250 mL NS, Branch Administer over 60 Minutes, Other, If blood glucose is < or = 70 mg/dL and patient is unable to swallow or has mental status changes, Starting on Mon03/22/22 at 0900
If blood glucose is < or = 70 mg/dL and patient is unable to swallow or has mental status changes (Give glucagon order if patient needs fluid restrictio n): IF IV access available: Dextrose 10%. 1. 125 mL (? bag) of D10W IV infusion - equivalent to 12.5 g dextrose 2. Blood glucose - draw blood glucose 15 minutes after D10W Administra tion. 3. If blood glucose is < 80 mg/dL, repeat.
dextrose 2021-05 Yes 250mL 250 mL, IV Un cali 10% (D10W) 0-25 Infusion, ity of bolus 14:00: PRN - SEE [place] infusion 33 INSTRUCTIO Medic al 250 mL NS, Branch Administer over 60 Minutes, Other, If blood glucose is < or = 70 mg/dL and patient is unable to swallow or has mental status changes, Starting on Mon03/22/22 at 0900
If blood glucose is < or = 70 mg/dL and patient is unable to swallow or has mental status changes (Give glucagon order if patient needs fluid restrictio n): IF IV access available: Dextrose 10%. 1. 125 mL (? bag) of D10W IV infusion - equivalent to 12.5 g dextrose 2. Blood glucose - draw blood glucose 15 minutes after D10W Administra tion. 3. If blood glucose is < 80 mg/dL, repeat.
dextrose 2021-05 Yes 250mL 250 mL, IV Un cali 10% (D10W) 0-25 Infusion, ity of bolus 14:00: PRN - SEE [place] infusion 33 INSTRUCTIO Medic al 250 mL NS, Branch Administer over 60 Minutes, Other, If blood glucose is < or = 70 mg/dL and patient is unable to swallow or has mental status changes, Starting on Mon03/22/22 at 0900
If blood glucose is < or = 70 mg/dL and patient is unable to swallow or has mental status changes (Give glucagon order if patient needs fluid restrictio n): IF IV access available: Dextrose 10%. 1. 125 mL (? bag) of D10W IV infusion - equivalent to 12.5 g dextrose 2. Blood glucose - draw blood glucose 15 minutes after D10W Administra tion. 3. If blood glucose is < 80 mg/dL, repeat.
glucagon 2021-05 Yes 1mg 1 mg, Univers (GLUCAGEN 0-25 Intramuscu ity of DIAGNOSTIC 14:00: [place], [place]N, [place] KIT) 30 Starting Medical injection 1 on [facility] mg 03/22/22 at 0900, Until Discontinu ed, TRANG, Blood Glucose < or = 70 mg/dL and patient is unable to swallow or has mental changes. glucagon 2021-05 Yes 1mg 1 mg, Univers (GLUCAGEN 0-25 Intramuscu ity of DIAGNOSTIC 14:00: [place], PRN, [place] KIT) 30 Starting Medical injection 1 on [facility] mg 03/22/22 at 0900, Until Discontinu ed, TRANG, Blood Glucose < or = 70 mg/dL and patient is unable to swallow or has mental changes. glucagon 2021-05 Yes 1mg 1 mg, Univers (GLUCAGEN 0-25 Intramuscu ity of DIAGNOSTIC 14:00: [place], PRN, [place] KIT) 30 Starting Medical injection 1 on [facility] mg 03/22/22 at 0900, Until Discontinu ed, TRANG, Blood Glucose < or = 70 mg/dL and patient is unable to swallow or has mental changes. docusate 2021-05 Yes 100mg 100 mg, Unive rs (COLACE) 0-24 Oral, BID, ity o f capsule 100 07:30: First dose [place] mg 00 on [facility] 03/21/22 Branch at 0230, Until Discontinu ed, Routine docusate 2021-05 Yes 100mg 100 mg, Unive rs (COLACE) 0-24 Oral, BID, ity o f capsule 100 07:30: First dose [place] mg 00 on [facility] 03/21/22 Branch at 0230, Until Discontinu ed, Routine docusate 2021-05 Yes 100mg 100 mg, Unive rs (COLACE) 0-24 Oral, BID, ity o f capsule 100 07:30: First dose [place] mg 00 on [facility] 03/21/22 Branch at 0230, Until Discontinu ed, Routine atorvastati 2021-05 Yes 80mg 80 mg, Univ ers n (LIPITOR) 0-23 Oral, QHS, it y of tablet 80 02:00: First dose [place] mg [address] [facility] 03/19/22 Branch at 2100, Until Discontinu ed, Routine atorvastati 2021-05 Yes 80mg 80 mg, Univ ers n (LIPITOR) 0-23 Oral, QHS, it y of tablet 80 02:00: First dose [place] mg [address] [facility] 03/19/22 Branch at 2100, Until Discontinu ed, Routine atorvastati 2021-05 Yes 80mg 80 mg, Univ ers n (LIPITOR) 0-23 Oral, QHS, it y of tablet 80 02:00: First dose [place] mg [address] [facility] 03/19/22 Branch at 2100, Until Discontinu ed, Routine enoxaparin 2021-05 Yes 40mg 40 mg, Unive rs (LOVENOX) 0-22 Subcutaneo ity of injection 14:00: [place], DAILY, [place] 40 mg 00 First dose Medical on [facility] 03/19/22 at 0900, Until Discontinu ed, Routine pantoprazol 2021-05 Yes 40mg 40 mg, Univ ers e 0-22 Oral, ity of (PROTONIX) 14:00: DAILY, [place] EC tablet 00 First dose Medi blanquita 40 mg on [facility] 03/19/22 at 0900, Until Discontinu ed, Routine ezetimibe 2021-05 Yes 10mg 10 mg, Univer s (ZETIA) 0-22 Oral, ity of tablet 10 14:00: DAILY, [place] mg 00 First dose Medical on [facility] 03/19/22 at 0900, Until Discontinu ed, Routine aspirin 2021-05 Yes 81mg 81 mg, Univers chewable 0-22 Oral, ity of tablet 81 14:00: DAILY, [place] mg 00 First dose Medical on [facility] 03/19/22 at 0900, Until Discontinu ed, Routine enoxaparin 2021-05 Yes 40mg 40 mg, Unive rs (LOVENOX) 0-22 Subcutaneo ity of injection 14:00: us, DAILY, [place] 40 mg 00 First dose Medical on [facility] 03/19/22 at 0900, Until Discontinu ed, Routine pantoprazol 2021-05 Yes 40mg 40 mg, Univ ers e 0-22 Oral, ity of (PROTONIX) 14:00: DAILY, [place] EC tablet 00 First dose Medi blanquita 40 mg on [facility] 03/19/22 at 0900, Until Discontinu ed, Routine ezetimibe 2021-05 Yes 10mg 10 mg, Univer s (ZETIA) 0-22 Oral, ity of tablet 10 14:00: DAILY, [place] mg 00 First dose Medical on [facility] [facility] 03/19/22 at 0900, Until Discontinu ed, Routine aspirin 2021-05 Yes 81mg 81 mg, Univers chewable 0-22 Oral, ity of tablet 81 14:00: DAILY, [place] mg 00 First dose Medical on [facility] 03/19/22 at 0900, Until Discontinu ed, Routine enoxaparin 2021-05 Yes 40mg 40 mg, Unive rs (LOVENOX) 0-22 Subcutaneo ity of injection 14:00: [place], DAILY, [place] 40 mg 00 First dose Medical on [facility] 03/19/22 at 0900, Until Discontinu ed, Routine pantoprazol 2021-05 Yes 40mg 40 mg, Univ ers e 0-22 Oral, ity of (PROTONIX) 14:00: DAILY, [place] EC tablet 00 First dose Medi blanquita 40 mg on [facility] 03/19/22 at 0900, Until Discontinu ed, Routine ezetimibe 2021-05 Yes 10mg 10 mg, Univer s (ZETIA) 0-22 Oral, ity of tablet 10 14:00: DAILY, [place] mg 00 First dose Medical on [facility] 03/19/22 at 0900, Until Discontinu ed, Routine aspirin 2021-05 Yes 81mg 81 mg, Univers chewable 0-22 Oral, ity of tablet 81 14:00: DAILY, [place] mg 00 First dose Medical on [facility] 03/19/22 at 0900, Until Discontinu ed, Routine gabapentin 2021-05 Yes 800mg 800 mg, Uni vers (NEURONTIN) 0-22 Oral, TID, it y of tablet 800 13:00: First dose [place] mg [address] [facility] 03/19/22 Branch at 0800, Until Discontinu ed, Routine gabapentin 2021-05 Yes 800mg 800 mg, Uni vers (NEURONTIN) 0-22 Oral, TID, it y of tablet 800 13:00: First dose [place] mg [address] [facility] 03/19/22 Branch at 0800, Until Discontinu ed, Routine gabapentin 2021-05 Yes 800mg 800 mg, Uni vers (NEURONTIN) 0-22 Oral, TID, it y of tablet 800 13:00: First dose [place] mg [address] [facility] 03/19/22 [place] at 0800, Until Discontinu ed, Routine polyethylen 2021-05 Yes 17g 17 g, Unive rs e glycol 0-22 Oral, ity of 3350 powder 11:37: [id number], [place] 17 g 04 Starting Medical on [facility] 03/19/22 at 0637, Until Discontinu ed, Routine, Constipati on polyethylen 2021-05 Yes 17g 17 g, Unive rs e glycol 0-22 Oral, ity of 3350 powder 11:37: [id number], [place] 17 g 04 Starting Medical on [facility] 03/19/22 at 0637, Until Discontinu ed, Routine, Constipati on polyethylen 2021-05 Yes 17g 17 g, Unive rs e glycol 0-22 Oral, ity of 3350 powder 11:37: [id number], [place] 17 g 04 Starting Medical on [facility] 03/19/22 at 0637, Until Discontinu ed, Routine, Constipati on ondansetron 2021-05 Yes 4mg 4 mg, Slow Univers (ZOFRAN 0-22 IV Push, ity of (PF)) 09:50: Q6HPRN, [place] injection 4 56 Starting Medi blanquita mg on [facility] 03/19/22 at 0450, Until Discontinu ed, Routine, Nausea and Vomiting (N/V) ondansetron 2021-05 Yes 4mg 4 mg, Slow Univers (ZOFRAN 0-22 IV Push, ity of (PF)) 09:50: Q6HPRN, [place] injection 4 56 Starting Medi blanquita mg on [facility] 03/19/22 at 0450, Until Discontinu ed, Routine, Nausea and Vomiting (N/V) ondansetron 2021-05 Yes 4mg 4 mg, Slow Univers (ZOFRAN 0-22 IV Push, ity of (PF)) 09:50: Q6HPRN, [place] injection 4 56 Starting Medi blanquita mg on Sat Branch 03/19/22 at 0450, Until Discontinu ed, Routine, Nausea and Vomiting (N/V) acetaminoph 2021-05 Yes 650mg 650 mg, Un cali en 0-22 Oral, ity of (TYLENOL) 09:49: Q6HPRN, [place] tablet 650 47 Starting Medic al mg on Sat Branch 03/19/22 at 0449, Until Discontinu ed, Routine, Pain (scale 1-3) acetaminoph 2021-05 Yes 650mg 650 mg, Un cali en 0-22 Oral, ity of (TYLENOL) 09:49: Q6HPRN, [place] tablet 650 47 Starting Medic al mg on Sat Branch 03/19/22 at 0449, Until Discontinu ed, Routine, Pain (scale 1-3) acetaminoph 2021-05 Yes 650mg 650 mg, Un cali en 0-22 Oral, ity of (TYLENOL) 09:49: Q6HPRN, [place] tablet 650 47 Starting Medic al mg on Sat Branch 03/19/22 at 0449, Until Discontinu ed, Routine, Pain (scale 1-3) nitroglycer 2021-05 Yes .4mg 0.4 mg, Uni vers in 0- Sublingual ity of (NITROSTAT) 09:47: , Q5MIN [place] sublingual 15 PRN, Medical tablet 0.4 Starting Branc h mg on 03/19/22 at 0447, Until Discontinu ed, Routine, Chest pain nitroglycer 2021-05 Yes .4mg 0.4 mg, Uni vers in Sublingual ity of (NITROSTAT) 09:47: , Q5MIN [place] sublingual 15 PRN, Medical tablet 0.4 Starting Branc h mg on 03/19/22 at 0447, Until Discontinu ed, Routine, Chest pain nitroglycer 2021-05 Yes .4mg 0.4 mg, Uni vers in 0- Sublingual ity of (NITROSTAT) 09:47: , Q5MIN [place] sublingual 15 PRN, Medical tablet 0.4 Starting Branc h mg on 03/19/22 at 0447, Until Discontinu ed, Routine, Chest pain mirtazapine 2021-05 Yes 15mg 15 mg, Univ ers (REMERON) 0-22 Oral, ity of tablet 15 09:46: QHSPRN, [place] mg 59 Starting Medical on [facility] 03/19/22 at 0446, Until Discontinu ed, Routine, insomnia mirtazapine 2021-05 Yes 15mg 15 mg, Univ ers (REMERON) 0-22 Oral, ity of tablet 15 09:46: QHSPRN, [place] mg 59 Starting Medical on [facility] Branch 03/19/22 at 0446, Until Discontinu ed, Routine, insomnia mirtazapine 2021-05 Yes 15mg 15 mg, Univ ers (REMERON) 0-22 Oral, ity of tablet 15 09:46: QHSPRN, [place] mg 59 Starting Medical on [facility] 03/19/22 at 0446, Until Discontinu ed, Routine, insomnia gabapentin 2021-05 Yes [id number] 800mg Take 1 Univers 800 mg 0-04 tablet by ity of tablet 00:00: mouth in [place] [address] the [facility] morning [place] and 1 tablet at noon and 1 tablet in the evening. gabapentin 2021-05 Yes [id number] 800mg Take 1 Univers 800 mg 0-04 tablet by ity of tablet 00:00: mouth in [place] [address] the [facility] morning Branch and 1 tablet at noon and 1 tablet in the evening. gabapentin 2021-05 Yes [id number] 800mg Take 1 [facility] 800 mg 0-04 tablet by ity of tablet 00:00: mouth in [place] [address] the Medical morning Branch and 1 tablet at noon and 1 tablet in the evening. gabapentin 2021-05 Yes [id number] 800mg Take 1 Univers 800 mg 0-04 tablet by ity of tablet 00:00: mouth in [place] [address] the [facility] morning Branch and 1 tablet at noon and 1 tablet in the evening. gabapentin 2021-05 Yes [id number] 800mg Take 1 Univers 800 mg 0-04 tablet by ity of tablet 00:00: mouth in [place] [address] the [facility] morning Branch and 1 tablet at noon and 1 tablet in the evening. gabapentin 2021-05 Yes [id number] 800mg Take 1 Univers 800 mg 0-04 tablet by ity of tablet 00:00: mouth in [address] morning [place] and 1 tablet at noon and 1 tablet in the evening. gabapentin 2021-1 Yes [id number] 800mg Take 1 Univers 800 mg 0-04 tablet by ity of tablet 00:00: mouth in [place] 00 the Medical morning Branch and 1 tablet at noon and 1 tablet in the evening. gabapentin 2021-1 Yes [id number] 800mg Take 1 [facility] 800 mg 0-04 tablet by ity of tablet 00:00: mouth in [place] 00 the Medical morning Branch and 1 tablet at noon and 1 tablet in the evening. gabapentin 2021- Yes [id number] 800mg Take 1 [facility] 800 mg 0-04 tablet by ity of tablet 00:00: mouth in [place] 00 the Medical morning Branch and 1 tablet at noon and 1 tablet in the evening. gabapentin 2021-1 Yes [id number] 800mg Take 1 [facility] 800 mg 0-04 tablet by ity of tablet 00:00: mouth in [place] [address] the Medical morning Branch and 1 tablet at noon and 1 tablet in the evening. GABAPENTIN 2021-0 2021- No [id number] TAKE 1 Univers 800 mg 9-06 10-04 TABLET BY ity of tablet 00:00: 00:00 MOUTH [place] 00 :00 THREE Medical TIMES Branch DAILY GABAPENTIN 2021-0 2021- No [id number] TAKE 1 Univers 800 mg 9-06 10-04 TABLET BY ity of tablet 00:00: 00:00 MOUTH [place] 00 :00 [facility] Medical TIMES [place] DAILY semaglutide 2021-0 Yes [id number] .25mg inject Univers (OZEMPIC) 8-17 0.25 mg ity of 0.25 mg or 00:00: under the [place] 0.5 mg(2 00 skin Medical mg/1.5 mL) weekly. Branch PnIj semaglutide 2021-0 Yes [id number] .25mg inject Univers (OZEMPIC) 8-17 0.25 mg ity of 0.25 mg or 00:00: under the [place] 0.5 mg(2 00 skin Medical mg/1.5 mL) weekly. Branch PnIj semaglutide 2021-0 Yes [id number] .25mg inject Univers (OZEMPIC) 8-17 0.25 mg ity of 0.25 mg or 00:00: under the [place] 0.5 mg(2 00 skin Medical mg/1.5 mL) weekly. Branch PnIj semaglutide 2021-0 Yes [id number] .25mg inject Univers (OZEMPIC) 8-17 0.25 mg ity of 0.25 mg or 00:00: under the [place] 0.5 mg(2 00 skin Medical mg/1.5 mL) weekly. Branch PnIj semaglutide 2021-0 Yes [id number] .25mg inject Univers (OZEMPIC) 8-17 0.25 mg ity of 0.25 mg or 00:00: under the [place] 0.5 mg(2 00 skin Medical mg/1.5 mL) weekly. Branch PnIj semaglutide 2021-0 Yes [id number] .25mg inject Univers (OZEMPIC) 8-17 0.25 mg ity of 0.25 mg or 00:00: under the [place] 0.5 mg(2 00 skin Medical mg/1.5 mL) weekly. Branch PnIj semaglutide 0 Yes [id number] .25mg inject Univers (OZEMPIC) 8-17 0.25 mg ity of 0.25 mg or 00:00: under the [place] 0.5 mg(2 00 skin Medical mg/1.5 mL) weekly. Branch PnIj semaglutide 2021-0 Yes [id number] .25mg inject Univers (OZEMPIC) 8-17 0.25 mg ity of 0.25 mg or 00:00: under the [place] 0.5 mg(2 00 skin Medical mg/1.5 mL) weekly. Branch PnIj semaglutide 2021-0 Yes [id number] .25mg inject Univers (OZEMPIC) 8-17 0.25 mg ity of 0.25 mg or 00:00: under the [place] 0.5 mg(2 00 skin Medical mg/1.5 mL) weekly. Branch PnIj semaglutide 2021-0 Yes [id number] .25mg inject Univers (OZEMPIC) 8-17 0.25 mg ity of 0.25 mg or 00:00: under the [place] 0.5 mg(2 00 skin Medical mg/1.5 mL) weekly. Branch PnIj semaglutide 2021-0 Yes [id number] .25mg inject Univers (OZEMPIC) 8-17 0.25 mg ity of 0.25 mg or 00:00: under the [place] 0.5 mg(2 00 skin Medical mg/1.5 mL) weekly. Branch PnIj semaglutide Yes [id number] .25mg inject Univers (OZEMPIC) 8-17 0.25 mg ity of 0.25 mg or 00:00: under the [place] 0.5 mg(2 00 skin Medical mg/1.5 mL) weekly. Branch PnIj flash Yes [id number] 1{each} Apply 1 U nivers glucose 5-20 Each to ity of sensor 00:00: skin every [place] (FREESTYLE 00 14 Medical RASHARD 2 (fourteen) Branch SENSOR) Kit days. Dx E11.9 flash 0 Yes [id number] 1{each} 1 Each Un cali glucose 5-20 daily. Dx ity of scanning 00:00: E11.9 [place] reader 00 Medical (FREESTYLE Branch RASHARD 2 READER) Misc insulin NPH Yes [id number] 45U inject Univers and regular 5-20 45-55 ity of human 70-30 00:00: Units [place] (NOVOLIN 00 under the Medica l 70/30 U-100 skin 2 Branch INSULIN) (two) 100 unit/mL times (70-30) daily injection before breakfast and dinner. atorvastati Yes 80mg Take 1 Univ ers n 80 mg 5-20 tablet by ity of tablet 00:00: mouth at [place] 00 bedtime. Medical Branch Blood-Gluco Yes [id number] Use 3 Univers se Meter 5-20 times ity of (TRUE 00:00: daily. Dx [place] METRIX 00 E11.9 Medical GLUCOSE Branch METER) Misc blood sugar Yes [id number] Use 3 Univers diagnostic 5-20 times ity of (TRUE 00:00: daily. Dx [place] METRIX 00 E11.9 Medical GLUCOSE Branch TEST STRIP) strip flash Yes [id number] 1{each} Apply 1 U nivers glucose 5-20 Each to ity of sensor 00:00: skin every [place] (FREESTYLE 00 14 Medical RASHARD 2 (fourteen) Branch SENSOR) Kit days. Dx E11.9 flash 2021-0 Yes [id number] 1{each} 1 Each Un cali glucose 5-20 daily. Dx ity of scanning 00:00: E11.9 [place] reader 00 Medical (FREESTYLE Branch RASHARD 2 READER) Misc insulin NPH 0 Yes [id number] 45U inject Univers and regular 5-20 45-55 ity of human 70-30 00:00: Units (NOVOLIN 00 under the Medica l 70/30 U-100 skin 2 Branch INSULIN) (two) 100 unit/mL times (70-30) daily injection before breakfast and dinner. atorvastati 0 Yes 80mg Take 1 Univ ers n 80 mg 5-20 tablet by ity of tablet 00:00: mouth at [place] 00 bedtime. Medical Branch Blood-Gluco 0 Yes [id number] Use 3 Univers se Meter 5-20 times ity of (TRUE 00:00: daily. Dx [place] METRIX 00 E11.9 Medical GLUCOSE Branch METER) Misc blood sugar 0 Yes [id number] Use 3 Univers diagnostic 5-20 times ity of (TRUE 00:00: daily. Dx [place] METRIX 00 E11.9 Medical GLUCOSE Branch TEST STRIP) strip flash 2021-0 Yes [id number] 1{each} Apply 1 U nivers glucose 5-20 Each to ity of sensor 00:00: skin every [place] (FREESTYLE 00 14 Medical RASHARD 2 (fourteen) Branch SENSOR) Kit days. Dx E11.9 flash 2021-0 Yes [id number] 1{each} 1 Each Un cali glucose 5-20 daily. Dx ity of scanning 00:00: E11.9 [place] reader 00 Medical (FREESTYLE Branch RASHARD 2 READER) Misc insulin NPH 2021-0 Yes [id number] 45U inject Univers and regular 5-20 45-55 ity of human 70-30 00:00: Units (NOVOLIN 00 under the Medica l 70/30 U-100 skin 2 Branch INSULIN) (two) 100 unit/mL times (70-30) daily injection before breakfast and dinner. atorvastati 2021-0 Yes 80mg Take 1 Univ ers n 80 mg 5-20 tablet by ity of tablet 00:00: mouth at [place] 00 bedtime. Medical Branch Blood-Gluco 2021-0 Yes [id number] Use 3 Univers se Meter 5-20 times ity of (TRUE 00:00: daily. Dx [place] METRIX 00 E11.9 Medical GLUCOSE Branch METER) Misc blood sugar Yes [id number] Use 3 Univers diagnostic 5-20 times ity of (TRUE 00:00: daily. Dx [place] METRIX 00 E11.9 Medical GLUCOSE Branch TEST STRIP) strip flash 2021-0 Yes [id number] 1{each} Apply 1 U nivers glucose 5-20 Each to ity of sensor 00:00: skin every (FREESTYLE 00 14 Medical RASHARD 2 (fourteen) Branch SENSOR) Kit days. Dx E11.9 flash 2021-0 Yes [id number] 1{each} 1 Each Un cali glucose 5-20 daily. Dx ity of scanning 00:00: E11.9 [place] reader 00 Medical (FREESTYLE Branch RASHARD 2 READER) Misc insulin NPH Yes [id number] 45U inject Univers and regular 5-20 45-55 ity of human 70-30 00:00: Units (NOVOLIN 00 under the Medica l 70/30 U-100 skin 2 Branch INSULIN) (two) 100 unit/mL times (70-30) daily injection before breakfast and dinner. atorvastati Yes 80mg Take 1 Univ ers n 80 mg 5-20 tablet by ity of tablet 00:00: mouth at [place] 00 bedtime. Medical Branch Blood-Gluco Yes [id number] Use 3 Univers se Meter 5-20 times ity of (TRUE 00:00: daily. Dx [place] METRIX 00 E11.9 Medical GLUCOSE Branch METER) Misc blood sugar Yes [id number] Use 3 Univers diagnostic 5-20 times ity of (TRUE 00:00: daily. Dx [place] METRIX 00 E11.9 Medical GLUCOSE Branch TEST STRIP) strip flash 2021-0 Yes [id number] 1{each} Apply 1 U nivers glucose 5-20 Each to ity of sensor 00:00: skin every [place] (FREESTYLE 00 14 Medical RASHARD 2 (fourteen) Branch SENSOR) Kit days. Dx E11.9 flash 2021-0 Yes [id number] 1{each} 1 Each Un cali glucose 5-20 daily. Dx ity of scanning 00:00: E11.9 [place] reader 00 Medical (FREESTYLE Branch RASHARD 2 READER) Misc insulin NPH Yes [id number] 45U inject Univers and regular 5-20 45-55 ity of human 70-30 00:00: Units (NOVOLIN 00 under the Medica l 70/30 U-100 skin 2 Branch INSULIN) (two) 100 unit/mL times (70-30) daily injection before breakfast and dinner. atorvastati Yes 80mg Take 1 Univ ers n 80 mg 5-20 tablet by ity of tablet 00:00: mouth at [place] 00 bedtime. Medical Branch Blood-Gluco Yes [id number] Use 3 Univers se Meter 5-20 times ity of (TRUE 00:00: daily. Dx [place] METRIX 00 E11.9 Medical GLUCOSE Branch METER) [facility] blood sugar Yes [id number] Use 3 Univers diagnostic 5-20 times ity of (TRUE 00:00: daily. Dx [place] METRIX 00 E11.9 Medical GLUCOSE Branch TEST STRIP) strip flash Yes [id number] 1{each} Apply 1 U nivers glucose 5-20 Each to ity of sensor 00:00: skin every [place] (FREESTYLE 00 14 Medical RASHARD 2 (fourteen) Branch SENSOR) Kit days. Dx E11.9 flash 0 Yes [id number] 1{each} 1 Each Un cali glucose 5-20 daily. Dx ity of scanning 00:00: E11.9 [place] reader 00 Medical (FREESTYLE Branch RASHARD 2 READER) Misc insulin NPH Yes [id number] 45U inject Univers and regular 5-20 45-55 ity of human 70-30 00:00: Units [place] (NOVOLIN 00 under the Medica l 70/30 U-100 skin 2 Branch INSULIN) (two) 100 unit/mL times (70-30) daily injection before breakfast and dinner. atorvastati Yes 80mg Take 1 Univ ers n 80 mg 5-20 tablet by ity of tablet 00:00: mouth at [place] 00 bedtime. Medical Branch Blood-Gluco Yes [id number] Use 3 Univers se Meter 5-20 times ity of (TRUE 00:00: daily. Dx [place] METRIX 00 E11.9 Medical GLUCOSE Branch METER) [facility] blood sugar Yes [id number] Use 3 Univers diagnostic 5-20 times ity of (TRUE 00:00: daily. Dx [place] METRIX E11.9 Medical GLUCOSE Branch TEST STRIP) strip flash 2021-0 Yes [id number] 1{each} Apply 1 U nivers glucose 5-20 Each to ity of sensor 00:00: skin every (FREESTYLE 00 14 Medical RASHARD 2 (fourteen) Branch SENSOR) Kit days. Dx E11.9 flash 2021-0 Yes [id number] 1{each} 1 Each Un cali glucose 5-20 daily. Dx ity of scanning 00:00: E11.9 [place] reader 00 Medical (FREESTYLE Branch RASHARD 2 READER) Misc insulin NPH Yes [id number] 45U inject Univers and regular 5-20 45-55 ity of human 70-30 00:00: Units (NOVOLIN 00 under the Medica l 70/30 U-100 skin 2 Branch INSULIN) (two) 100 unit/mL times (70-30) daily injection before breakfast and dinner. atorvastati Yes 80mg Take 1 Univ ers n 80 mg 5-20 tablet by ity of tablet 00:00: mouth at [place] 00 bedtime. Medical Branch Blood-Gluco Yes [id number] Use 3 Univers se Meter 5-20 times ity of (TRUE 00:00: daily. Dx [place] METRIX E11.9 Medical GLUCOSE Branch METER) [facility] blood sugar Yes [id number] Use 3 Univers diagnostic 5-20 times ity of (TRUE 00:00: daily. Dx [place] METRIX E11.9 Medical GLUCOSE Branch TEST STRIP) strip flash 2021-0 Yes [id number] 1{each} Apply 1 U nivers glucose 5-20 Each to ity of sensor 00:00: skin every [place] (FREESTYLE 00 14 Medical RASHARD 2 (fourteen) Branch SENSOR) Kit days. Dx E11.9 flash 2021-0 Yes [id number] 1{each} 1 Each Un cali glucose 5-20 daily. Dx ity of scanning 00:00: E11.9 [place] reader 00 Medical (FREESTYLE Branch RASHARD 2 READER) Misc insulin NPH Yes [id number] 45U inject Univers and regular 5-20 45-55 ity of human 70-30 00:00: Units [place] (NOVOLIN 00 under the Medica l 70/30 U-100 skin 2 Branch INSULIN) (two) 100 unit/mL times (70-30) daily injection before breakfast and dinner. atorvastati Yes 80mg Take 1 Univ ers n 80 mg 5-20 tablet by ity of tablet 00:00: mouth at [place] 00 bedtime. Medical Branch Blood-Gluco 0 Yes [id number] Use 3 Univers se Meter 5-20 times ity of (TRUE 00:00: daily. Dx [place] METRIX 00 E11.9 Medical GLUCOSE Branch METER) Misc blood sugar Yes [id number] Use 3 Univers diagnostic 5-20 times ity of (TRUE 00:00: daily. Dx [place] METRIX 00 E11.9 Medical GLUCOSE Branch TEST STRIP) strip flash 0 Yes [id number] 1{each} Apply 1 U nivers glucose 5-20 Each to ity of sensor 00:00: skin every [place] (FREESTYLE 00 14 Medical RASHARD 2 (fourteen) Branch SENSOR) Kit days. Dx E11.9 flash 2021-0 Yes [id number] 1{each} 1 Each Un cali glucose 5-20 daily. Dx ity of scanning 00:00: E11.9 [place] reader 00 Medical (FREESTYLE Branch RASHARD 2 READER) Misc insulin NPH 0 Yes [id number] 45U inject Univers and regular 5-20 45-55 ity of human 70-30 00:00: Units [place] (NOVOLIN 00 under the Medica l 70/30 U-100 skin 2 Branch INSULIN) (two) 100 unit/mL times (70-30) daily injection before breakfast and dinner. atorvastati Yes 80mg Take 1 Univ ers n 80 mg 5-20 tablet by ity of tablet 00:00: mouth at [place] 00 bedtime. Medical Branch Blood-Gluco 0 Yes [id number] Use 3 Univers se Meter 5-20 times ity of (TRUE 00:00: daily. Dx [place] METRIX 00 E11.9 Medical GLUCOSE Branch METER) Misc blood sugar Yes [id number] Use 3 Univers diagnostic 5-20 times ity of (TRUE 00:00: daily. Dx [place] METRIX E11.9 Medical GLUCOSE Branch TEST STRIP) strip flash 2021-0 Yes [id number] 1{each} Apply 1 U nivers glucose 5-20 Each to ity of sensor 00:00: skin every (FREESTYLE 00 14 Medical RASHARD 2 (fourteen) Branch SENSOR) Kit days. Dx E11.9 flash 2021-0 Yes [id number] 1{each} 1 Each [place] glucose 5-20 daily. Dx ity of scanning 00:00: E11.9 [place] reader 00 Medical (FREESTYLE Branch RASHARD 2 READER) Misc insulin NPH 2021-0 Yes [id number] 45U inject Univers and regular 5-20 45-55 ity of human 70-30 00:00: Units [place] (NOVOLIN 00 under the Medica l 70/30 U-100 skin 2 Branch INSULIN) (two) 100 unit/mL times (70-30) daily injection before breakfast and dinner. atorvastati 0 Yes 80mg Take 1 Univ ers n 80 mg 5-20 tablet by ity of tablet 00:00: mouth at [place] 00 bedtime. Medical Branch Blood-Gluco 0 Yes [id number] Use 3 Univers se Meter 5-20 times ity of (TRUE 00:00: daily. Dx [place] METRIX E11.9 Medical GLUCOSE Branch METER) Misc blood sugar 0 Yes [id number] Use 3 Univers diagnostic 5-20 times ity of (TRUE 00:00: daily. Dx [place] METRIX E11.9 Medical GLUCOSE Branch TEST STRIP) strip flash 2021-0 Yes [id number] 1{each} Apply 1 U nivers glucose 5-20 Each to ity of sensor 00:00: skin every (FREESTYLE 00 14 Medical RASHARD 2 (fourteen) Branch SENSOR) Kit days. Dx E11.9 flash 2021-0 Yes [id number] 1{each} 1 Each [place] glucose 5-20 daily. Dx ity of scanning 00:00: E11.9 [place] reader 00 Medical (FREESTYLE Branch RASHARD 2 READER) Misc insulin NPH 2021-0 Yes [id number] 45U inject Univers and regular 5-20 45-55 ity of human 70-30 00:00: Units (NOVOLIN 00 under the Medica l 70/30 U-100 skin 2 Branch INSULIN) (two) 100 unit/mL times (70-30) daily injection before breakfast and dinner. atorvastati Yes 80mg Take 1 Univ ers n 80 mg 5-20 tablet by ity of tablet 00:00: mouth at [place] 00 bedtime. Medical Branch Blood-Gluco Yes [id number] Use 3 Univers se Meter 5-20 times ity of (TRUE 00:00: daily. Dx [place] METRIX 00 E11.9 Medical GLUCOSE Branch METER) [place] blood sugar Yes [id number] Use 3 Univers diagnostic 5-20 times ity of (TRUE 00:00: daily. Dx [place] METRIX 00 E11.9 Medical GLUCOSE Branch TEST STRIP) strip flash Yes [id number] 1{each} Apply 1 U nivers glucose 5-20 Each to ity of sensor 00:00: skin every [place] (FREESTYLE 00 14 Medical RASHARD 2 (fourteen) Branch SENSOR) Kit days. Dx E11.9 flash 0 Yes [id number] 1{each} 1 Each [place] glucose 5-20 daily. Dx ity of scanning 00:00: E11.9 [place] reader 00 Medical (FREESTYLE Branch RASHARD 2 READER) Misc atorvastati Yes 80mg Take 1 Univ ers n 80 mg 5-20 tablet by ity of tablet 00:00: mouth at [place] 00 bedtime. Medical Branch Blood-Gluco Yes [id number] Use 3 Univers se Meter 5-20 times ity of (TRUE 00:00: daily. Dx [place] METRIX 00 E11.9 Medical GLUCOSE Branch METER) [place] blood sugar Yes [id number] Use 3 Univers diagnostic 5-20 times ity of (TRUE 00:00: daily. Dx [place] METRIX 00 E11.9 Medical GLUCOSE Branch TEST STRIP) strip GABAPENTIN 2021-2021- No [id number] TAKE 1 Univers 800 mg 2-25 09-06 TABLET BY ity of tablet 00:00: 00:00 MOUTH [place] 00 :00 THREE Medical TIMES Branch DAILY GABAPENTIN 2021-0 2021- No [id number] TAKE 1 Univers 800 mg 2-25 09-06 TABLET BY ity of tablet 00:00: 00:00 MOUTH [place] 00 :00 THREE Medical TIMES [place] DAILY MIRTAZAPINE 2020-05 Yes [id number] 15mg TAKE 1 Univers 15 mg 2-20 TABLET BY ity of tablet 00:00: MOUTH AT [address] MIRTAZAPINE 2020-05 Yes [id number] 15mg TAKE 1 Univers 15 mg 2-20 TABLET BY ity of tablet 00:00: MOUTH AT [address] MIRTAZAPINE 2020-05 Yes [id number] 15mg TAKE 1 Univers 15 mg 2-20 TABLET BY ity of tablet 00:00: MOUTH AT [address] MIRTAZAPINE 2020-05 Yes [id number] 15mg TAKE 1 Univers 15 mg 2-20 TABLET BY ity of tablet 00:00: MOUTH AT [address] MIRTAZAPINE 2020-05 Yes [id number] 15mg TAKE 1 Univers 15 mg 2-20 TABLET BY ity of tablet 00:00: MOUTH AT [address] MIRTAZAPINE 2020-05 Yes [id number] 15mg TAKE 1 Univers 15 mg 2-20 TABLET BY ity of tablet 00:00: MOUTH AT [address] MIRTAZAPINE 2020-05 Yes [id number] 15mg TAKE 1 Univers 15 mg 2-20 TABLET BY ity of tablet 00:00: MOUTH AT [address] MIRTAZAPINE 2020-05 Yes [id number] 15mg TAKE 1 Univers 15 mg 2-20 TABLET BY ity of tablet 00:00: MOUTH AT [address] MIRTAZAPINE 2020-05 Yes [id number] 15mg TAKE 1 Univers 15 mg 2-20 TABLET BY ity of tablet 00:00: MOUTH AT [address] MIRTAZAPINE 2020-05 Yes [id number] 15mg TAKE 1 Univers 15 mg 2-20 TABLET BY ity of tablet 00:00: MOUTH AT [address] MIRTAZAPINE 2020-05 Yes [id number] 15mg TAKE 1 Univers 15 mg 2-20 TABLET BY ity of tablet 00:00: MOUTH AT [address] MIRTAZAPINE 2020-05 Yes [id number] 15mg TAKE 1 Univers 15 mg 2-20 TABLET BY ity of tablet 00:00: MOUTH AT [place] 00 BEDTIME Medical Branch ondansetron 2020-0 Yes [id number] 4mg Take 1 Univers 4 mg 8-06 tablet by ity of disintegrat 00:00: mouth [place] ing tablet 00 every 8 Medica l (eight) Branch hours as needed for Nausea and Vomiting (N/V). ondansetron 0 Yes [id number] 4mg Take 1 Univers 4 mg 8-06 tablet by ity of disintegrat 00:00: mouth [place] ing tablet 00 every 8 Medica l (eight) Branch hours as needed for Nausea and Vomiting (N/V). ondansetron 0 Yes [id number] 4mg Take 1 Univers 4 mg 8-06 tablet by ity of disintegrat 00:00: mouth [place] ing tablet 00 every 8 Medica l (eight) Branch hours as needed for Nausea and Vomiting (N/V). ondansetron 0 Yes [id number] 4mg Take 1 Univers 4 mg 8-06 tablet by ity of disintegrat 00:00: mouth [place] ing tablet 00 every 8 Medica l (eight) Branch hours as needed for Nausea and Vomiting (N/V). ondansetron Yes [id number] 4mg Take 1 Univers 4 mg 8-06 tablet by ity of disintegrat 00:00: mouth [place] ing tablet 00 every 8 Medica l (eight) Branch hours as needed for Nausea and Vomiting (N/V). ondansetron 0 Yes [id number] 4mg Take 1 Univers 4 mg 8-06 tablet by ity of disintegrat 00:00: mouth [place] ing tablet 00 every 8 Medica l (eight) Branch hours as needed for Nausea and Vomiting (N/V). ondansetron 0 Yes [id number] 4mg Take 1 Univers 4 mg 8-06 tablet by ity of disintegrat 00:00: mouth [place] ing tablet 00 every 8 Medica l (eight) Branch hours as needed for Nausea and Vomiting (N/V). ondansetron 2020-0 Yes [id number] 4mg Take 1 [facility] 4 mg 8-06 tablet by ity of disintegrat 00:00: mouth [place] ing tablet 00 every 8 Medica l (eight) Branch hours as needed for Nausea and Vomiting (N/V). ondansetron 2020-0 Yes [id number] 4mg Take 1 Univers 4 mg 8-06 tablet by ity of disintegrat 00:00: mouth [place] ing tablet 00 every 8 Medica l (eight) Branch hours as needed for Nausea and Vomiting (N/V). ondansetron 0 Yes [id number] 4mg Take 1 Univers 4 mg 8-06 tablet by ity of disintegrat 00:00: mouth [place] ing tablet 00 every 8 Medica l (eight) Branch hours as needed for Nausea and Vomiting (N/V). ondansetron 0 Yes [id number] 4mg Take 1 Univers 4 mg 8-06 tablet by ity of disintegrat 00:00: mouth [place] ing tablet 00 every 8 Medica l (eight) Branch hours as needed for Nausea and Vomiting (N/V). ondansetron 0 Yes [id number] 4mg Take 1 Univers 4 mg 8-06 tablet by ity of disintegrat 00:00: mouth [place] ing tablet 00 every 8 Medica l (eight) Branch hours as needed for Nausea and Vomiting (N/V). clopidogreL 0 Yes [id number] 75mg Take 1 Univers 75 mg 7-07 tablet by ity of tablet 00:00: mouth [place] 00 daily. Medical Branch aspirin 81 0 Yes [id number] 81mg Take 1 U nivers mg chewable 7-07 tablet by ity of tablet 00:00: mouth [place] 00 daily. Medical Branch clopidogreL 0 Yes [id number] 75mg Take 1 [facility] 75 mg 7-07 tablet by ity of tablet 00:00: mouth [place] 00 daily. Medical Branch aspirin 81 2020-0 Yes [id number] 81mg Take 1 U nivers mg chewable 7-07 tablet by ity of tablet 00:00: mouth [place] 00 daily. Medical Branch clopidogreL 2020-0 Yes [id number] 75mg Take 1 [facility] 75 mg 7-07 tablet by ity of tablet 00:00: mouth [place] 00 daily. Medical Branch aspirin 81 2020-0 Yes [id number] 81mg Take 1 U nivers mg chewable 7-07 tablet by ity of tablet 00:00: mouth [place] 00 daily. Medical Branch clopidogreL 2020-0 Yes [id number] 75mg Take 1 [facility] 75 mg 7-07 tablet by ity of tablet 00:00: mouth [place] 00 daily. Medical [facility] aspirin 81 2020-0 Yes [id number] 81mg Take 1 U nivers mg chewable 7-07 tablet by ity of tablet 00:00: mouth [place] 00 daily. Medical Branch clopidogreL 2020-0 Yes [id number] 75mg Take 1 [facility] 75 mg 7-07 tablet by ity of tablet 00:00: mouth [place] 00 daily. Medical Branch aspirin 81 2020-0 Yes [id number] 81mg Take 1 U nivers mg chewable 7-07 tablet by ity of tablet 00:00: mouth [place] 00 daily. Medical [facility] clopidogreL 2020-0 Yes [id number] 75mg Take 1 [facility] 75 mg 7-07 tablet by ity of tablet 00:00: mouth [place] 00 daily. Medical [facility] aspirin 81 2020-0 Yes [id number] 81mg Take 1 U nivers mg chewable 7-07 tablet by ity of tablet 00:00: mouth [place] 00 daily. [facility] clopidogreL 2020-0 Yes [id number] 75mg Take 1 [facility] 75 mg 7-07 tablet by ity of tablet 00:00: mouth [place] 00 daily. Medical [facility] aspirin 81 2020-0 Yes [id number] 81mg Take 1 U nivers mg chewable 7-07 tablet by ity of tablet 00:00: mouth [place] 00 daily. [facility] clopidogreL 2020-0 Yes [id number] 75mg Take 1 [facility] 75 mg 7-07 tablet by ity of tablet 00:00: mouth [place] 00 daily. Medical [facility] aspirin 81 2020-0 Yes [id number] 81mg Take 1 U nivers mg chewable 7-07 tablet by ity of tablet 00:00: mouth [place] 00 daily. [facility] clopidogreL 2020-0 Yes [id number] 75mg Take 1 [facility] 75 mg 7-07 tablet by ity of tablet 00:00: mouth [place] 00 daily. Medical [facility] aspirin 81 2020-0 Yes [id number] 81mg Take 1 U nivers mg chewable 7-07 tablet by ity of tablet 00:00: mouth [place] 00 daily. Medical Branch clopidogreL 2020-0 Yes [id number] 75mg Take 1 [facility] 75 mg 7-07 tablet by ity of tablet 00:00: mouth [place] 00 daily. Medical [facility] aspirin 81 2020-0 Yes [id number] 81mg Take 1 U nivers mg chewable 7-07 tablet by ity of tablet 00:00: mouth [place] 00 daily. [facility] clopidogreL 2020-0 Yes [id number] 75mg Take 1 [facility] 75 mg 7-07 tablet by ity of tablet 00:00: mouth [place] 00 daily. Medical [facility] aspirin 81 1-0 Yes [id number] 81mg Take 1 U nivers mg chewable 7-07 tablet by ity of tablet 00:00: mouth [place] 00 daily. Medical [facility] clopidogreL 1-0 Yes [id number] 75mg Take 1 [facility] 75 mg 7-07 tablet by ity of tablet 00:00: mouth [place] 00 daily. Medical [facility] aspirin 81 1-0 Yes [id number] 81mg Take 1 U nivers mg chewable 7-07 tablet by ity of tablet 00:00: mouth [place] 00 daily. Medical Branch ezetimibe 1-0 Yes [id number] 10mg Take 1 U nivers 10 mg 6-18 tablet by ity of tablet 00:00: mouth [place] 00 daily. Medical [facility] furosemide 1-0 Yes [id number] 1 tablet [facility] 20 mg 6-18 02 as needed ity of tablet 00:00: for leg [place] swelling Medical Branch ezetimibe 1-0 Yes [id number] 10mg Take 1 U nivers 10 mg 6-18 tablet by ity of tablet 00:00: mouth [place] 00 daily. [facility] furosemide 1-0 Yes [id number] 1 tablet [facility] 20 mg 6-18 02 as needed ity of tablet 00:00: for leg [place] swelling Medical Branch ezetimibe 1-0 Yes [id number] 10mg Take 1 U nivers 10 mg 6-18 tablet by ity of tablet 00:00: mouth [place] 00 daily. Medical [facility] furosemide 1-0 Yes [id number] 1 tablet [facility] 20 mg 6-18 02 as needed ity of tablet 00:00: for leg [place] swelling Medical Branch ezetimibe 1-0 Yes [id number] 10mg Take 1 U nivers 10 mg 6-18 tablet by ity of tablet 00:00: mouth [place] 00 daily. Medical Branch furosemide 1-0 Yes [id number] 1 tablet [facility] 20 mg 6-18 02 as needed ity of tablet 00:00: for leg [place] 00 swelling Medical Branch ezetimibe 1-0 Yes [id number] 10mg Take 1 U nivers 10 mg 6-18 tablet by ity of tablet 00:00: mouth [place] 00 daily. Medical Branch furosemide 1-0 Yes [id number] 1 tablet [facility] 20 mg 6-18 02 as needed ity of tablet 00:00: for leg swelling Medical Branch ezetimibe 2021-0 Yes [id number] 10mg Take 1 U nivers 10 mg 6-18 tablet by ity of tablet 00:00: mouth [place] 00 daily. [facility] furosemide 2021-0 Yes [id number] 1 tablet [facility] 20 mg 6-18 02 as needed ity of tablet 00:00: for leg swelling Medical Branch ezetimibe 2021-0 Yes [id number] 10mg Take 1 U nivers 10 mg 6-18 tablet by ity of tablet 00:00: mouth [place] 00 daily. Medical Branch furosemide 1-0 Yes [id number] 1 tablet [facility] 20 mg 6-18 02 as needed ity of tablet 00:00: for leg swelling Medical Branch ezetimibe 1-0 Yes [id number] 10mg Take 1 U nivers 10 mg 6-18 tablet by ity of tablet 00:00: mouth [place] 00 daily. Medical Branch furosemide 1-0 Yes [id number] 1 tablet [facility] 20 mg 6-18 02 as needed ity of tablet 00:00: for leg swelling Medical Branch ezetimibe 1-0 Yes [id number] 10mg Take 1 U nivers 10 mg 6-18 tablet by ity of tablet 00:00: mouth [place] 00 daily. Medical Branch furosemide 2021-0 Yes [id number] 1 tablet [facility] 20 mg 6-18 02 as needed ity of tablet 00:00: for leg swelling Medical Branch ezetimibe 2021-0 Yes [id number] 10mg Take 1 U nivers 10 mg 6-18 tablet by ity of tablet 00:00: mouth [place] 00 daily. Medical Branch furosemide 2021-0 Yes [id number] 1 tablet [facility] 20 mg 6-18 02 as needed ity of tablet 00:00: for leg [place] swelling Medical Branch ezetimibe 2021-0 Yes [id number] 10mg Take 1 U nivers 10 mg 6-18 tablet by ity of tablet 00:00: mouth [place] 00 daily. Medical Branch furosemide 2021-0 Yes [id number] 1 tablet [facility] 20 mg 6-18 02 as needed ity of tablet 00:00: for leg [place] 00 swelling Medical Branch ezetimibe Yes [id number] 10mg Take 1 U nivers 10 mg 6-18 tablet by ity of tablet 00:00: mouth 00 daily. Medical Branch glipiZIDE Yes Type 2 5mg [...] o f tablet 00:00: disease [place] 00 involving bedtime. [facility] [place] [facility] coronary artery of [place] heart without angina pectoris glipiZIDE Yes Type [...] [place] involving bed[place]. [facility] [place] [facility] coronary artery of [place] heart without angina pectoris ezetimibe 2020- No [...] human 70-30 00:00: 04:59 diabetes under the [place] ([place]OV[place]IN 00 :00 mellitus skin 2 Medic [...] type 2 Units it y of human 7030 00:00: 04:59 diabetes under the [place] ([place]OV[place]IN 00 :00 mellitus skin 2 Medic [...] :00 involving daily for Medi blanquita tablet [place] 30 days. Branch coronary artery of [place] heart without angina pectoris SITagliptin 2020- No [...] :00 involving daily for Medi blanquita tablet [place] 30 days. Branch coronary artery of [place] heart without angina pectoris SITagliptin 2020- No [...] human 70-30 00:00: 00:00 diabetes under the [place] (NOVOLIN 00 :00 mellitus skin 2 Medic [...] Medical DAILY WITH Branch MEALS pantoprazol Yes [id number] 40mg Take 1 Univers e 40 mg EC 1-11 tablet by ity of tablet 00:00: mouth 00 daily. Medical Branch pantoprazol Yes [id number] 40mg Take 1 [facility] e 40 mg EC 1-11 tablet by ity of tablet 00:00: mouth [place] 00 daily. Medical Branch pantoprazol Yes [id number] 40mg Take 1 Univers e 40 mg EC 1-11 tablet by ity of tablet 00:00: mouth [place] 00 daily. Medical Branch pantoprazol Yes [id number] 40mg Take 1 [facility] e 40 mg EC 1-11 tablet by ity of tablet 00:00: mouth [place] 00 daily. Medical Branch pantoprazol Yes [id number] 40mg Take 1 [facility] e 40 mg EC 1-11 tablet by ity of tablet 00:00: mouth [place] 00 daily. Medical Branch pantoprazol Yes [id number] 40mg Take 1 [facility] e 40 mg EC 1-11 tablet by ity of tablet 00:00: mouth [place] 00 daily. Medical Branch pantoprazol Yes [id number] 40mg Take 1 [facility] e 40 mg EC 1-11 tablet by ity of tablet 00:00: mouth [place] 00 daily. Medical Branch pantoprazol Yes [id number] 40mg Take 1 [facility] e 40 mg EC 1-11 tablet by ity of tablet 00:00: mouth [place] 00 daily. Medical Branch pantoprazol Yes [id number] 40mg Take 1 [facility] e 40 mg EC 1-11 tablet by ity of tablet 00:00: mouth [place] 00 daily. Medical Branch pantoprazol Yes [id number] 40mg Take 1 [facility] e 40 mg EC 1-11 tablet by ity of tablet 00:00: mouth [place] 00 daily. Medical Branch pantoprazol Yes [id number] 40mg Take 1 [facility] e 40 mg EC 1-11 tablet by ity of tablet 00:00: mouth [place] 00 daily. Medical Branch pantoprazol Yes [id number] 40mg Take 1 Univers e 40 mg [...] as 00 :00 involving bedtime. Medica l [place] [facility] coronary artery of [place] heart without angina pectoris atorvastati 2020- No Coronary 80mg Take 1 Univers n 80 mg 3-20 05-06 artery tablet by ity of tablet 00:00: 00:00 disease mouth at [place] as 00 :00 involving bedtime. Medica l [place] [facility] coronary artery of [place] heart without angina pectoris nitroglycer 2018-05 Yes [id number] 1 tab SL Univers in 0.4 mg 0-29 q5min up ity of sublingual 00:00: to 3 doses [place] tablet 00 PRN chest Medical pain, then Branch activate 911. nitroglycer 2018-05 Yes [id number] 1 tab SL Univers in 0.4 mg 0-29 q5min up ity of sublingual 00:00: to 3 doses [place] tablet 00 PRN chest Medical pain, then Branch activate 911. nitroglycer 2018-05 Yes [id number] 1 tab SL [facility] in 0.4 mg 0-29 q5min up ity of sublingual 00:00: to 3 doses [place] tablet 00 PRN chest Medical pain, then Branch activate 911. nitroglycer 2018-05 Yes [id number] 1 tab SL [facility] in 0.4 mg 0-29 q5min up ity of sublingual 00:00: to 3 doses [place] tablet 00 PRN chest Medical pain, then Branch activate 911. nitroglycer 2018-05 Yes [id number] 1 tab SL [facility] in 0.4 mg 0-29 q5min up ity of sublingual 00:00: to 3 doses [place] tablet 00 PRN chest Medical pain, then Branch activate 911. nitroglycer 2018-05 Yes [id number] 1 tab SL [facility] in 0.4 mg 0-29 q5min up ity of sublingual 00:00: to 3 doses [place] tablet 00 PRN chest Medical pain, then Branch activate 911. nitroglycer 2018-05 Yes [id number] 1 tab SL Univers in 0.4 mg 0-29 q5min up ity of sublingual 00:00: to 3 doses [place] tablet 00 PRN chest Medical pain, then Branch activate 911. nitroglycer 2018-05 Yes [id number] 1 tab SL [facility] in 0.4 mg 0-29 q5min up ity of sublingual 00:00: to 3 doses [place] tablet 00 PRN chest Medical pain, then Branch activate 911. nitroglycer 2018-05 Yes [id number] 1 tab SL [facility] in 0.4 mg 0-29 q5min up ity of sublingual 00:00: to 3 doses [place] tablet 00 PRN chest Medical pain, then Branch activate 911. nitroglycer 2018-05 Yes [id number] 1 tab SL [facility] in 0.4 mg 0-29 q5min up ity of sublingual 00:00: to 3 doses [place] tablet 00 PRN chest Medical pain, then Branch activate 911. nitroglycer 2018-05 Yes [id number] 1 tab SL [facility] in 0.4 mg 0-29 q5min up ity of sublingual 00:00: to 3 doses [place] tablet 00 PRN chest Medical pain, then Branch activate 911. nitroglycer 2018-05 Yes [id number] 1 tab SL [facility] in 0.4 mg [...] tablet Common n Calcium n Calcium [facility] Lexapro Lexapro Yes Dada 1 tablet Com mon Horan [facility] Metoprolol Metoprolol Yes Dada 1 tablet Common Tartrate Tartrate Horan with food [facility] Ranexa Ranexa Yes Dada 1 tablet Commo n [facility] Insulin Insulin Yes Dada 60 units Com mon Aspart Prot Aspart Prot [facility]an [facility] Aspirin Aspirin Yes Dada 1 tablet Com mon Horan [facility] Gabapentin Gabapentin Yes Dada 1 tablet Common Horan [facility] Furosemide Furosemide Yes Dada 1 tablet Common Horan [facility] Duloxetine Duloxetine Yes Dada 1 capsule Common HCl HCl [facility] Xanax Xanax Yes Dada 1 tablet Common Horan [facility] Clopidogrel Clopidogrel Yes Dada 1 tablet Common Bisulfate Bisulfate [facility] Metformin Metformin Yes Dada 1 tablet Common HCl HCl Horan with meals [facility] Pantoprazol Pantoprazol Yes Dada 1 tablet Common e Sodium e Sodium Horan [facility] Klor-Con Klor-Con Yes Dada 1 tablet C ommon M10 M10 Horan with food [facility] Duloxetine Duloxetine Yes Dada 1 capsule Common HCl HCl Horan [facility] Levetiracet Levetiracet Yes Dada 1 tablet Common am am Horan [facility] [place] Yes Dada 1 tablet Common Horan as needed [facility] Lexapro Lexapro Yes Dada 1 tablet Com mon Hoarn [facility] Atorvastati Atorvastati Yes Dada 1 tablet Common n Calcium n Calcium Horan [facility] Clopidogrel Clopidogrel Yes Dada 1 tablet Common Bisulfate Bisulfate Horan [facility] Furosemide Furosemide Yes Dada 1 tablet Common Horan [facility] Immunizations Ordered Filled Immunization Date Status Comments [facility] e Immunization Name Name SARS-COV-2 COVID-19 2021-01-17 Completed Unive rsity of PFIZER VACCINE 00:00:00 [facility] [place] [facility] SARS-COV-2 COVID-19 2021-01-17 Completed Unive rsity of PFIZER VACCINE 00:00:00 [facility] [place] [facility] SARS-COV-2 COVID-19 2021-01-17 Completed Unive rsity of PFIZER VACCINE 00:00:00 [facility] [place] [facility] SARS-COV-2 COVID-19 2021-01-17 Completed Unive rsity of PFIZER VACCINE 00:00:00 [facility] [place] [facility] SARS-COV-2 COVID-19 2021-01-17 Completed Unive rsity of PFIZER VACCINE 00:00:00 [facility] [place] [facility] SARS-COV-2 COVID-19 2021-01-17 Completed Unive rsity of PFIZER VACCINE 00:00:00 [facility] [place] [facility] SARS-COV-2 COVID-19 2021-01-17 Completed Unive rsity of PFIZER VACCINE 00:00:00 [facility] [place] [facility] SARS-COV-2 COVID-19 2021-01-17 Completed Unive rsity of PFIZER VACCINE 00:00:00 [facility] [place] [facility] SARS-COV-2 COVID-19 2021-01-17 Completed Unive rsity of PFIZER VACCINE 00:00:00 [facility] [place] [facility] SARS-COV-2 COVID-19 2021-01-17 Completed Unive rsity of PFIZER VACCINE 00:00:00 [facility] [place] [facility] SARS-COV-2 COVID-19 2021-01-17 Completed Unive rsity of PFIZER VACCINE 00:00:00 [facility] [place] [facility] SARS-COV-2 COVID-19 2021-01-17 Completed Unive rsity of PFIZER VACCINE 00:00:00 [facility] [place] [facility] Vital Signs Vital Name Observation Time Observation Value Comments Source Systolic blood 2022-03-29 12:39:00 127 mm[Hg] Univer sity of pressure [place] [facility] Diastolic blood 2022-03-29 12:39:00 72 mm[Hg] Unive rsity of pressure [place] [facility] Heart rate 2022-03-29 12:39:00 84 /min [facility] [place] [facility] Body temperature 2022-03-29 12:39:00 36.28 [place] [facility] [place] [facility] Respiratory rate 2022-03-29 12:39:00 15 /min [facility] [place] [facility] Oxygen saturation in 2022-03-29 12:39:00 94 /min University of Arterial blood by [facility] [place] [facility] Pulse oximetry Branch Body height 2022-03-22 21:40:00 162.6 cm [facility] [place] [facility] Body weight 2022-03-22 21:40:00 53.524 kg [facility] [place] [facility] BMI 2022-03-22 21:40:00 20.25 kg/m2 [facility] [place] [facility] Systolic blood 2022-03-28 12:50:00 130 mm[Hg] Univer sity of pressure [place] [facility] Diastolic blood 2022-03-28 12:50:00 66 mm[Hg] Unive rsity of pressure [place] [facility] Heart rate 2022-03-28 12:50:00 96 /min [facility] [place] [facility] Body temperature 2022-03-28 12:50:00 36.83 [place] [facility] [place] [facility] Respiratory rate 2022-03-28 12:50:00 16 /min [facility] [place] [facility] Oxygen saturation in 2022-03-28 12:50:00 94 /min University of Arterial blood by [facility] [place] [facility] Pulse oximetry Branch Body height 2022-03-22 21:40:00 162.6 cm [facility] [place] [facility] Body weight 2022-03-22 21:40:00 53.524 kg [facility] [place] [facility] BMI 2022-03-22 21:40:00 20.25 kg/m2 [facility] [place] [facility] Systolic blood 2022-03-25 16:00:00 100 mm[Hg] Univer sity of pressure [place] [facility] Diastolic blood 2022-03-25 16:00:00 62 mm[Hg] Unive rsity of pressure [place] [facility] Respiratory rate 2022-03-25 16:00:00 15 /min Univ ers[facility] [place] [facility] Oxygen saturation in 2022-03-25 16:00:00 92 /min University of Arterial blood by [facility] [place] [facility] Pulse oximetry Branch Heart rate 2022-03-25 14:19:00 80 /min [facility] [place] [facility] Body temperature 2022-03-25 14:19:00 36.28 [place] [facility] [place] [facility] Body height 2022-03-22 21:40:00 162.6 cm [facility] [place] [facility] Body weight 2022-03-22 21:40:00 53.524 kg [facility] [place] [facility] BMI 2022-03-22 21:40:00 20.25 kg/m2 [facility] [place] [facility] Systolic blood 2022-01-12 21:04:00 138 mm[Hg] Univer sity of pressure [place] [facility] Diastolic blood 2022-01-12 21:04:00 86 mm[Hg] Unive rsity of pressure [place] [facility] Heart rate 2022-01-12 21:04:00 90 /min [facility] [place] [facility] Body weight 2022-01-12 21:04:00 55.702 kg [facility] [place] [facility] BMI 2022-01-12 21:04:00 21.08 kg/m2 [facility] [place] [facility] Oxygen saturation in 2022-01-12 21:04:00 98 /min University of Arterial blood by [facility] [place] [facility] Pulse oximetry Branch Heart rate 2020-10-01 20:20:00 60 /min [facility] [place] [facility] Systolic blood 2020-10-01 20:20:00 120 mm[Hg] Univer sity of pressure [place] [facility] Diastolic blood 2020-10-01 20:20:00 80 mm[Hg] Unive rsity of pressure [place] [facility] Heart rate 2020-10-01 20:20:00 60 /min [facility] [place] [facility] Systolic blood 2020-10-01 20:20:00 120 mm[Hg] Univer sity of pressure [place] [facility] Diastolic blood 2020-10-01 20:20:00 80 mm[Hg] Unive rsity of pressure [facility] Heart rate 2020-10-01 20:20:00 60 /min Universi ty [facility] Systolic blood 2020-10-01 20:20:00 120 mm[Hg] Univer sity of pressure [facility] Diastolic blood 2020-10-01 20:20:00 80 mm[Hg] Unive rsity of pressure [facility] Systolic blood 2022-03-28 12:50:00 130 mm[Hg] Univer sity of pressure [facility] Diastolic blood 2022-03-28 12:50:00 66 mm[Hg] Unive rsity of pressure [facility] Heart rate 2022-03-28 12:50:00 96 /min [facility] Body temperature 2022-03-28 12:50:00 36.83 [place] [facility] 2022-03-28 12:50:00 16 /min [facility] Oxygen saturation in 2022-03-28 12:50:00 94 /min [facility] Arterial blood by [facility] [place] [facility] Pulse oximetry [place] Body height 2022-03-22 21:40:00 162.6 cm [facility] Body weight 2022-03-22 21:40:00 53.524 kg [facility] BMI 2022-03-22 21:40:00 20.25 kg/m2 [facility] Procedures Procedure Date / Time Performing Clinician Source Performed POCT GLUCOSE (AUTOMATED) 2022-03-30 21:15:00 Rachelle Guthrie [facility] POCT GLUCOSE (AUTOMATED) 2022-03-30 16:28:00 Rachelle Guthrie [facility] POCT GLUCOSE (AUTOMATED) 2022-03-30 12:51:00 Rachelle Guthrie [facility] CBC WITH DIFF 2022-03-30 10:49:00 [facility] MAGNESIUM 2022-03-30 09:28:00 Burton [facility] BASIC METABOLIC PANEL (NA, 2022-03-30 09:28:00 Nara Manrique [facility] K, CL, CO2, GLUCOSE, BUN, Medica l Branch CREATININE, CA) POCT GLUCOSE (AUTOMATED) 2022-03-30 08:56:00 Rachelle Guthrie [facility] POCT GLUCOSE (AUTOMATED) 2022-03-30 04:45:00 Rachelle Guthrie Uni versity of [facility] POCT GLUCOSE (AUTOMATED) 2022-03-30 00:58:00 Jerri Rachelle Uni versity of [facility] POCT GLUCOSE (AUTOMATED) 2022-03-29 21:49:00 Rachelle Guthrie Uni versity of [facility] CBC WITH DIFF 2022-03-29 17:51:00 Gonzalez [facility] CBC WITH DIFF 2022-03-29 17:51[facility] 2022-03-29 15:55[facility]-29 [id number]+GLU[facility]CA2+ 2022-03-29 15:54:00 Rachelle Guthrie Unive rsity [facility] ABOVE THE KNEE AMPUTATION 2022-03-29 14:17:00 [place] [facility] 2022-03-29 13:07:00 Rachelle Guthrie Uni versity of [facility] POCT GLUCOSE (AUTOMATED) 2022-03-29 13:07:00 Rachelle Guthrie Uni versity of [facility] POCT GLUCOSE (AUTOMATED) 2022-03-29 09:19:00 Rachelle Guthrie Uni vers[facility] of [facility] POCT GLUCOSE (AUTOMATED) 2022-03-29 09:19:00 Rachelle Guthrie Uni vers[facility] of [facility] POCT GLUCOSE (AUTOMATED) 2022-03-29 05:01:00 Rachelle Guthrie Uni vers[facility] of [facility] POCT GLUCOSE (AUTOMATED) 2022-03-29 05:01:00 Rachelle Guthrie Uni vers[facility] of [facility] POCT GLUCOSE (AUTOMATED) 2022-03-29 01:18:00 Rachelle Guthrie Uni versity of [facility] POCT GLUCOSE (AUTOMATED) 2022-03-29 01:18:00 Rachelle Guthrie [facility] [facility] [place] POCT GLUCOSE (AUTOMATED) 2022-03-28 21:45:00 Rachelle Guthrie [facility] [place] POCT GLUCOSE (AUTOMATED) 2022-03-28 21:45:00 Rachelle Guthrie [facility] vers[facility] of [facility] [place] POCT GLUCOSE (AUTOMATED) 2022-03-28 21:45:00 Rachelle Guthrie Uni vers[facility] of [facility] [place] CARDIAC CATHETERIZATION 2022-03-28 20:01:49 Zach, Mostafa Uni versity of [facility] CARDIAC CATHETERIZATION 2022-03-28 20:01:49 Zach, Mostafa Uni versity of [facility] CARDIAC CATHETERIZATION 2022-03-28 20:01:49 Zach, Mostafa Uni versity of [facility] CARDIAC CATHETERIZATION 2022-03-28 20:01:49 Zach, Mostafa Uni vers[facility] of [facility] POCT GLUCOSE (AUTOMATED) 2022-03-28 12:52:00 [facility] POCT GLUCOSE (AUTOMATED) 2022-03-28 12:52:00 [facility] POCT GLUCOSE (AUTOMATED) 2022-03-28 12:52:00 [facility] POCT GLUCOSE (AUTOMATED) 2022-03-28 12:52:00 [facility] CBC WITH DIFF 2022-03-28 10:17:[facility] COMP. METABOLIC PANEL 2022-03-28 10:17:00 [facility] ([id number] MAGNESIUM 2022-03-28 10:17:00 Javan [facility] MAGNESIUM 2022-03-28 10:17:00 [facility] COMP. METABOLIC PANEL 2022-03-28 10:17:00 [facility] ([id number]) [facility] CBC WITH DIFF 2022-03-28 10:17:00 Javan [facility] MAGNESIUM 2022-03-28 10:17:00 Javan [facility] COMP. METABOLIC PANEL 2022-03-28 10:17:00 [facility] ([id number]) [facility] CBC WITH DIFF 2022-03-28 10:17:00 Javan [facility] MAGNESIUM 2022-03-28 10:17:00 Javan [facility] COMP. METABOLIC PANEL 2022-03-28 10:17:00 [facility] ([id number]) [facility] CBC WITH DIFF 2022-03-28 10:17:00 [facility] POCT GLUCOSE (AUTOMATED) 2022-03-28 09:22:00 [facility] POCT GLUCOSE (AUTOMATED) 2022-03-28 09:22:00 [facility] POCT GLUCOSE (AUTOMATED) 2022-03-28 09:22:00 [facility] POCT GLUCOSE (AUTOMATED) 2022-03-28 09:22:00 [facility] POCT GLUCOSE (AUTOMATED) 2022-03-28 05:21:00 [facility] POCT GLUCOSE (AUTOMATED) 2022-03-28 05:21:00 [facility] POCT GLUCOSE (AUTOMATED) 2022-03-28 05:21:00 [facility] POCT GLUCOSE (AUTOMATED) 2022-03-28 05:21:00 [facility] POCT GLUCOSE (AUTOMATED) 2022-03-28 04:45:00 [facility] POCT GLUCOSE (AUTOMATED) 2022-03-28 04:45:00 [facility] POCT GLUCOSE (AUTOMATED) 2022-03-28 04:45:00 [facility] POCT GLUCOSE (AUTOMATED) 2022-03-28 04:45:00 [facility] POCT GLUCOSE (AUTOMATED) 2022-03-28 01:29:00 [facility] POCT GLUCOSE (AUTOMATED) 2022-03-28 01:29:00 [facility] POCT GLUCOSE (AUTOMATED) 2022-03-28 01:29:00 [facility] POCT GLUCOSE (AUTOMATED) 2022-03-28 01:29:00 [facility] POCT GLUCOSE (AUTOMATED) 2022-03-27 20:43:00 [facility] POCT GLUCOSE (AUTOMATED) 2022-03-27 20:43:00 [facility] POCT GLUCOSE (AUTOMATED) 2022-03-27 20:43:00 [facility] POCT GLUCOSE (AUTOMATED) 2022-03-27 20:43:00 [facility] POCT GLUCOSE (AUTOMATED) 2022-03-27 17:35:00 [facility] POCT GLUCOSE (AUTOMATED) 2022-03-27 17:35:00 [facility] POCT GLUCOSE (AUTOMATED) 2022-03-27 17:35:00 [facility] POCT GLUCOSE (AUTOMATED) 2022-03-27 17:35:00 [facility] POCT GLUCOSE (AUTOMATED) 2022-03-27 12:34:00 [facility] POCT GLUCOSE (AUTOMATED) 2022-03-27 12:34:00 [facility] POCT GLUCOSE (AUTOMATED) 2022-03-27 12:34:00 [facility] POCT GLUCOSE (AUTOMATED) 2022-03-27 12:34:00 [facility] POCT GLUCOSE (AUTOMATED) 2022-03-27 09:14:00 [facility] POCT GLUCOSE (AUTOMATED) 2022-03-27 09:14:00 [facility] POCT GLUCOSE (AUTOMATED) 2022-03-27 09:14:00 [facility] POCT GLUCOSE (AUTOMATED) 2022-03-27 09:14:00 [facility] CBC WITH DIFF 2022-03-27 08:58:00 [facility] 2022-03-27 08:58[facility]00 [facility]FF 2022-03-27 08:58:00 Sahibzada, [facility] CBC WITH DIFF 2022-03-27 08:58:00 [facility]) 2022-03-27 05:07:00 [facility] POCT GLUCOSE (AUTOMATED) 2022-03-27 05:07:00 [facility] POCT GLUCOSE (AUTOMATED) 2022-03-27 05:07:00 [facility] POCT GLUCOSE (AUTOMATED) 2022-03-27 05:07:00 [facility] POCT GLUCOSE (AUTOMATED) 2022-03-27 00:42:00 [facility] POCT GLUCOSE (AUTOMATED) 2022-03-27 00:42:00 [facility] POCT GLUCOSE (AUTOMATED) 2022-03-27 00:42:00 [facility] POCT GLUCOSE (AUTOMATED) 2022-03-27 00:42:00 [facility] PREPARE PACKED RBC 2022-03-26 23:09[facility] 2022-03-26 23:09:52 [facility] HB ABO GROUPING 2022-03-26 22:25:00 [facility] HB ABO GROUPING 2022-03-26 22:25:00 [facility] HB ABO GROUPING 2022-03-26 22:25:00 [facility] HB ABO GROUPING 2022-03-26 22:25:00 [facility] COVID-19 (ID NOW RAPID 2022-03-26 22:24:00 [facility], [facility] TESTING) [facility] LAB ONLY COVID 2022-03-26 22:24:00 [facility] INTERPRETATION [facility] COVID-19 (ID NOW RAPID 2022-03-26 22:24:00 [facility] TESTING) [facility] LAB ONLY COVID 2022-03-26 22:24:00 [facility] INTERPRETATION [facility] COVID-19 (ID NOW RAPID 2022-03-26 22:24:00 [facility], [facility] TESTING) [facility] LAB ONLY COVID 2022-03-26 22:24:00 [facility] INTERPRETATION [facility] COVID-19 (ID NOW RAPID 2022-03-26 22:24:00 [facility] TESTING) [facility] LAB ONLY COVID 2022-03-26 22:24:00 [facility] INTERPRETATION [facility] POCT GLUCOSE (AUTOMATED) 2022-03-26 21:39:00 [facility] POCT GLUCOSE (AUTOMATED) 2022-03-26 21:39:00 [facility] POCT GLUCOSE (AUTOMATED) 2022-03-26 21:39:00 [facility] POCT GLUCOSE (AUTOMATED) 2022-03-26 21:39:00 [facility] POCT GLUCOSE (AUTOMATED) 2022-03-26 17:34:00 [facility] POCT GLUCOSE (AUTOMATED) 2022-03-26 17:34:00 [facility] POCT GLUCOSE (AUTOMATED) 2022-03-26 17:34:00 [facility] POCT GLUCOSE (AUTOMATED) 2022-03-26 17:34:00 [facility] POCT GLUCOSE (AUTOMATED) 2022-03-26 12:27:00 [facility] POCT GLUCOSE (AUTOMATED) 2022-03-26 12:27:00 [facility] POCT GLUCOSE (AUTOMATED) 2022-03-26 12:27:00 [facility] POCT GLUCOSE (AUTOMATED) 2022-03-26 12:27:00 [facility] COMP. METABOLIC PANEL 2022-03-26 09:29:00 [id number] CBC WITH DIFF 2022-03-26 09:29:00 [facility] MAGNESIUM 2022-03-26 09:29:00 [facility] 2022-03-26 09:29:00 [facility] COMP. METABOLIC PANEL 2022-03-26 09:29:00 [facility] ([id number] CBC WITH DIFF 2022-03-26 09:29:00 [facility] MAGNESIUM 2022-03-26 09:29:00 [facility] COMP. METABOLIC PANEL 2022-03-26 09:29:00 [id number] CBC WITH DIFF 2022-03-26 09:29:00 [facility] MAGNESIUM 2022-03-26 09:29:00 [facility] COMP. METABOLIC PANEL 2022-03-26 09:29:00 [facility] ([id number]) Medical Branch CBC WITH DIFF 2022-03-26 09:29:00 [facility] POCT GLUCOSE (AUTOMATED) 2022-03-26 09:21:00 [facility] POCT GLUCOSE (AUTOMATED) 2022-03-26 09:21:00 [facility] POCT GLUCOSE (AUTOMATED) 2022-03-26 09:21:00 [facility] POCT GLUCOSE (AUTOMATED) 2022-03-26 09:21:00 [facility] POCT GLUCOSE (AUTOMATED) 2022-03-26 04:57:00 [facility] POCT GLUCOSE (AUTOMATED) 2022-03-26 04:57:00 [facility] POCT GLUCOSE (AUTOMATED) 2022-03-26 04:57:00 [facility] POCT GLUCOSE (AUTOMATED) 2022-03-26 04:57:00 [facility] POCT GLUCOSE (AUTOMATED) 2022-03-26 01:14:00 [facility] POCT GLUCOSE (AUTOMATED) 2022-03-26 01:14:00 [facility] POCT GLUCOSE (AUTOMATED) 2022-03-26 01:14:00 [facility] POCT GLUCOSE (AUTOMATED) 2022-03-26 01:14:00 [facility] POCT GLUCOSE (AUTOMATED) 2022-03-25 21:10:00 [facility] POCT GLUCOSE (AUTOMATED) 2022-03-25 21:10:00 [facility] POCT GLUCOSE (AUTOMATED) 2022-03-25 21:10:00 [facility] POCT GLUCOSE (AUTOMATED) 2022-03-25 21:10:00 [facility] POCT GLUCOSE (AUTOMATED) 2022-03-25 18:03:00 [facility] POCT GLUCOSE (AUTOMATED) 2022-03-25 18:03:00 [facility] POCT GLUCOSE (AUTOMATED) 2022-03-25 18:03:00 [facility] POCT GLUCOSE (AUTOMATED) 2022-03-25 18:03:00 [facility] POCT GLUCOSE (AUTOMATED) 2022-03-25 14:26:00 [facility] POCT GLUCOSE (AUTOMATED) 2022-03-25 14:26:00 [facility] POCT GLUCOSE (AUTOMATED) 2022-03-25 14:26:00 [facility] POCT GLUCOSE (AUTOMATED) 2022-03-25 14:26:00 [facility] FL TIME OR 2022-03-25 14:15:00 [facility] (NON-REPORTABLE) [facility] FL TIME OR 2022-03-25 14:15:00 [facility] (NON-REPORTABLE) [facility] FL TIME OR 2022-03-25 14:15:00 [facility] (NON-REPORTABLE) [facility] FL TIME OR 2022-03-25 14:15:00 [facility] (NON-REPORTABLE) [facility] ARTERIOGRAM 2022-03-25 12:30:00 [facility]22-03-25 12:30[facility]00 [facility]FF 2022-03-25 09:24:00 Nara Manrique [facility] BASIC METABOLIC PANEL (NA, 2022-03-25 09:24:00 Nara Manrique [facility] [place] K, CL, CO2, GLUCOSE, BUN, Medica l Branch CREATININE, CA) MAGNESIUM 2022-03-25 09:24:00 [facility] PHOSPHORUS 2022-03-25 09:24:00 [facility] PROTHROMBIN TIME / INR 2022-03-25 09:24:00 Nara Manrique [facility] PHOSPHORUS 2022-03-25 09:24:00 [facility] MAGNESIUM 2022-03-25 09:24[facility] (NA, 2022-03-25 09:24:00 Nara Manrique [facility] [place] K, CL, CO2, GLUCOSE, BUN, Medica l Branch CREATININE, CA) CBC WITH DIFF 2022-03-25 09:24:00 [facility] PROTHROMBIN TIME / INR 2022-03-25 09:24:00 Nara Manrique [facility] PHOSPHORUS 2022-03-25 09:24:00 [facility] MAGNESIUM 2022-03-25 09:24:00 [facility] BASIC METABOLIC PANEL (NA, 2022-03-25 09:24:00 Nara Manrique [facility] [place] K, CL, CO2, GLUCOSE, BUN, Medica l Branch CREATININE, CA) CBC WITH DIFF 2022-03-25 09:24:00 [facility] PROTHROMBIN TIME / INR 2022-03-25 09:24:00 Nara Manrique [facility] PHOSPHORUS 2022-03-25 09:24:00 [facility] MAGNESIUM 2022-03-25 09:24:00 [facility] BASIC METABOLIC PANEL (NA, 2022-03-25 09:24:00 Nara Manrique [facility] [place] K, CL, CO2, GLUCOSE, BUN, Medica l Branch CREATININE, CA) CBC WITH DIFF 2022-03-25 09:24:00 Priscilla Manriquessbennie Haskins o f [facility] [place] PROTHROMBIN TIME / INR 2022-03-25 09:24:00 [facility] 2022-03-25 09:01:00 [facility] POCT GLUCOSE (AUTOMATED) 2022-03-25 09:01:00 [facility] POCT GLUCOSE (AUTOMATED) 2022-03-25 09:01:00 [facility] POCT GLUCOSE (AUTOMATED) 2022-03-25 09:01:00 [facility] POCT GLUCOSE (AUTOMATED) 2022-03-25 04:14:00 [facility] POCT GLUCOSE (AUTOMATED) 2022-03-25 04:14:00 [facility] POCT GLUCOSE (AUTOMATED) 2022-03-25 04:14:00 [facility] POCT GLUCOSE (AUTOMATED) 2022-03-25 04:14:00 [facility] POCT GLUCOSE (AUTOMATED) 2022-03-25 01:32:00 [facility] POCT GLUCOSE (AUTOMATED) 2022-03-25 01:32:00 [facility] POCT GLUCOSE (AUTOMATED) 2022-03-25 01:32:00 [facility] POCT GLUCOSE (AUTOMATED) 2022-03-25 01:32:00 [facility] POCT GLUCOSE (AUTOMATED) 2022-03-25 01:23:00 [facility] POCT GLUCOSE (AUTOMATED) 2022-03-25 01:23:00 [facility] POCT GLUCOSE (AUTOMATED) 2022-03-25 01:23:00 [facility] POCT GLUCOSE (AUTOMATED) 2022-03-25 01:23:00 [facility] POCT GLUCOSE (AUTOMATED) 2022-03-24 23:01:00 [facility] POCT GLUCOSE (AUTOMATED) 2022-03-24 23:01:00 [facility] POCT GLUCOSE (AUTOMATED) 2022-03-24 23:01:00 [facility] POCT GLUCOSE (AUTOMATED) 2022-03-24 23:01:00 [facility] POCT GLUCOSE (AUTOMATED) 2022-03-24 22:00:00 [facility] POCT GLUCOSE (AUTOMATED) 2022-03-24 22:00:00 [facility] POCT GLUCOSE (AUTOMATED) 2022-03-24 22:00:00 [facility] POCT GLUCOSE (AUTOMATED) 2022-03-24 22:00:00 [facility] POCT GLUCOSE (AUTOMATED) 2022-03-24 17:05:00 [facility] POCT GLUCOSE (AUTOMATED) 2022-03-24 17:05:00 [facility] POCT GLUCOSE (AUTOMATED) 2022-03-24 17:05:00 [facility] POCT GLUCOSE (AUTOMATED) 2022-03-24 17:05:00 [facility] TRANSTHORACIC ECHO (TTE) 2022-03-24 15:42:00 Aman Robison [facility] [place] COMPLETE W/ CONTRAST [facility] TRANSTHORACIC ECHO (TTE) 2022-03-24 15:42:00 Aman Robison [facility] [place] COMPLETE W/ CONTRAST [facility] TRANSTHORACIC ECHO (TTE) 2022-03-24 15:42:00 Aman Robison [facility] [place] COMPLETE W/ CONTRAST [facility] TRANSTHORACIC ECHO (TTE) 2022-03-24 15:42:00 Aman Robison [facility] [place] COMPLETE W/ CONTRAST [facility] POCT GLUCOSE (AUTOMATED) 2022-03-24 12:58:00 [facility] POCT GLUCOSE (AUTOMATED) 2022-03-24 12:58:00 [facility] POCT GLUCOSE (AUTOMATED) 2022-03-24 12:58:00 [facility] POCT GLUCOSE (AUTOMATED) 2022-03-24 12:58:00 [facility] BASIC METABOLIC PANEL (NA, 2022-03-24 10:58:00 Nara Manrique [facility] [place] K, CL, CO2, GLUCOSE, BUN, Medica l Branch CREATININE, CA) MAGNESIUM 2022-03-24 10:58:00 [facility] PHOSPHORUS 2022-03-24 10:58:00 [facility] PHOSPHORUS 2022-03-24 10:58:00 [facility] MAGNESIUM 2022-03-24 10:58:00 [facility] BASIC METABOLIC PANEL (NA, 2022-03-24 10:58:00 Burton, Nara [facility] [place] K, CL, CO2, GLUCOSE, BUN, Medica l Branch CREATININE, CA) PHOSPHORUS 2022-03-24 10:58:00 [facility] MAGNESIUM 2022-03-24 10:58:[facility] (NA, 2022-03-24 10:58:00 Burton, Nara [facility] [place] K, CL, CO2, GLUCOSE, BUN, Medica l Branch CREATININE, CA) PHOSPHORUS 2022-03-24 10:58:00 [facility] 2022-03-24 10:58:00 [facility] BASIC MET[facility]OLIC PANEL (NA, 2022-03-24 10:58:00 Burton, Nara [facility] [place] K, CL, CO2, GLUCOSE, BUN, Medica l Branch CREATININE, CA) POCT GLUCOSE (AUTOMATED) 2022-03-24 01:07:00 [facility] POCT GLUCOSE (AUTOMATED) 2022-03-24 01:07:00 [facility] POCT GLUCOSE (AUTOMATED) 2022-03-24 01:07:00 [facility] POCT GLUCOSE (AUTOMATED) 2022-03-24 01:07:00 [facility] MR FOOT LEFT W WO CONTRAST 2022-03-23 23:25:47 [facility]imo [facility] MR FOOT LEFT W WO CONTRAST 2022-03-23 23:25:47 ShayyMaximo liao [facility] MR FOOT LEFT W WO CONTRAST 2022-03-23 23:25:47 ShayyMaximo liao [facility] MR FOOT LEFT W WO CONTRAST 2022-03-23 23:25:47 Maximo Lucas [facility] POCT GLUCOSE (AUTOMATED) 2022-03-23 22:11:00 [facility] POCT GLUCOSE (AUTOMATED) 2022-03-23 22:11:00 [facility] POCT GLUCOSE (AUTOMATED) 2022-03-23 22:11:00 [facility] POCT GLUCOSE (AUTOMATED) 2022-03-23 22:11:00 [facility] HOWARD MULTI LEVEL - BY 2022-03-23 20:42:[address] [facility] VASCULAR [facility] HOWARD MULTI LEVEL - BY 2022-03-23 20:42:[address] [facility] VASCULAR [facility] HOWARD MULTI LEVEL - BY 2022-03-23 20:42:[address] [facility] VASCULAR [facility] HOWARD MULTI LEVEL - BY 2022-03-23 20:42:[address] [facility] VASCULAR [facility] XR BONE SURVEY LTD 2022-03-23 18:11:00 [facility] XR BONE SURVEY LTD 2022-03-23 18:11:00 [facility] XR BONE SURVEY LTD 2022-03-23 18:11:00 KyDameon sarkaric [facility] XR BONE SURVEY LTD 2022-03-23 18:11:00 Kymello [facility] POCT GLUCOSE (AUTOMATED) 2022-03-23 16:40:00 [facility] POCT GLUCOSE (AUTOMATED) 2022-03-23 16:40:00 [facility] POCT GLUCOSE (AUTOMATED) 2022-03-23 16:40:00 [facility] POCT GLUCOSE (AUTOMATED) 2022-03-23 16:40:00 [facility] POCT GLUCOSE (AUTOMATED) 2022-03-23 13:05:00 [facility] POCT GLUCOSE (AUTOMATED) 2022-03-23 13:05:00 [facility] POCT GLUCOSE (AUTOMATED) 2022-03-23 13:05:00 [facility] POCT GLUCOSE (AUTOMATED) 2022-03-23 13:05:00 [facility] C-REACTIVE PROTEIN 2022-03-23 05:37:00 Shayy [facility] CBC WITHOUT DIFF 2022-03-23 05:37:00 Suches [facility] BASIC METABOLIC PANEL (NA, 2022-03-23 05:37:00 Maximo Lucas [facility] K, CL, CO2, GLUCOSE, BUN, Medica l Branch CREATININE, CA) MAGNESIUM 2022-03-23 05:37:00 Shayy [facility] MAGNESIUM 2022-03-23 05:37:00 Suches [facility] C-REACTIVE PROTEIN 2022-03-23 05:37:00 Suches [facility] BASIC METABOLIC PANEL (NA, 2022-03-23 05:37:00 Shayy [facility] K, CL, CO2, GLUCOSE, BUN, Medica l Branch CREATININE, CA) CBC WITHOUT DIFF 2022-03-23 05:37:00 Shayy [facility] MAGNESIUM 2022-03-23 05:37:00 Shayy [facility] C-REACTIVE PROTEIN 2022-03-23 05:37:00 Shayy [facility] BASIC METABOLIC PANEL (NA, 2022-03-23 05:37:00 Shayy [facility] K, CL, CO2, GLUCOSE, BUN, Medica l Branch CREATININE, CA) CBC WITHOUT DIFF 2022-03-23 05:37:00 Shayy [facility] MAGNESIUM 2022-03-23 05:37:00 Shayy [facility] C-REACTIVE PROTEIN 2022-03-23 05:37:00 Shayy [facility] BASIC METABOLIC PANEL (NA, 2022-03-23 05:37:00 Shayy [facility] K, CL, CO2, GLUCOSE, BUN, Medica l Branch CREATININE, CA) CBC WITHOUT DIFF 2022-03-23 05:37:00 Shayy [facility] SEDIMENTATION RATE 2022-03-23 04:17:00 Shayy [facility] SEDIMENTATION RATE 2022-03-23 04:17:00 Shayy [facility] SEDIMENTATION RATE 2022-03-23 04:17:00 Shayy [facility] SEDIMENTATION RATE 2022-03-23 04:17:00 Shayy [facility] VANCOMYCIN TROUGH 2022-03-23 02:24:00 Gurvinder Boyer [facility] VANCOMYCIN TROUGH 2022-03-23 02:24:00 Gurvinder Boyer [facility] VANCOMYCIN TROUGH 2022-03-23 02:24:00 Gurvinder Boyer [facility] VANCOMYCIN TROUGH 2022-03-23 02:24:00 Gurvinder Boyer [facility] POCT GLUCOSE (AUTOMATED) 2022-03-23 01:20:00 [facility] POCT GLUCOSE (AUTOMATED) 2022-03-23 01:20:00 [facility] POCT GLUCOSE (AUTOMATED) 2022-03-23 01:20:00 [facility] POCT GLUCOSE (AUTOMATED) 2022-03-23 01:20:00 [facility] POCT GLUCOSE (AUTOMATED) 2022-03-22 23:39:00 [facility] POCT GLUCOSE (AUTOMATED) 2022-03-22 23:39:00 [facility] POCT GLUCOSE (AUTOMATED) 2022-03-22 23:39:00 [facility] POCT GLUCOSE (AUTOMATED) 2022-03-22 23:39:00 [facility] POCT GLUCOSE (AUTOMATED) 2022-03-22 16:52:00 [facility]OMATED) 2022-03-22 16:52:00 Edionwe, [facility] POCT GLUCOSE (AUTOMATED) 2022-03-22 16:52:00 Edionwe, [facility] POCT GLUCOSE (AUTOMATED) 2022-03-22 16:52:00 Edionwe, [facility] POCT GLUCOSE (AUTOMATED) 2022-03-22 12:56:00 Edionwe, [facility] POCT GLUCOSE (AUTOMATED) 2022-03-22 12:56:00 Edionwe, [facility] POCT GLUCOSE (AUTOMATED) 2022-03-22 12:56:00 Edionwe, [facility] POCT GLUCOSE (AUTOMATED) 2022-03-22 12:56:00 [facility]NA, 2022-03-22 08:59:00 [facility], CO2, GLUCOSE, BUN, Medica l Branch CREATININE, CA) CBC WITH DIFF 2022-03-22 08:59:00 Gurvinder [facility] BASIC METABOLIC PANEL (NA, 2022-03-22 08:59:00 Gurvinder Boyer [facility] K, CL, CO2, GLUCOSE, BUN, Medica l Branch CREATININE, CA) CBC WITH DIFF 2022-03-22 08:59:00 Gurvinder [facility] BASIC METABOLIC PANEL (NA, 2022-03-22 08:59:00 [facility], CO2, GLUCOSE, BUN, Medica l Branch CREATININE, CA) CBC WITH DIFF 2022-03-22 08:59:00 Gurvinder [facility] BASIC METABOLIC PANEL (NA, 2022-03-22 08:59:00 [facility], CL, CO2, GLUCOSE, BUN, Medica l Branch CREATININE, CA) CBC WITH DIFF 2022-03-22 08:59:00 [facility] ([facility]OMATED) 2022-03-22 01:38:00 [facility]) 2022-03-22 01:38:00 Che Barlow Uni [facility] POCT GLUCOSE (AUTOMATED) 2022-03-22 01:38:00 [facility] ([facility]OMATED) 2022-03-22 01:38:00 Edlexi [facility]SE (AUTOMATED) 2022-03-21 21:42:00 [facility]SE (AUTOMATED) 2022-03-21 21:42:00 Cain Thomasmargarette [facility]SE (AUTOMATED) 2022-03-21 21:42:00 Cain Thomasmargarette [facility] PO[facility]SE (AUTOMATED) 2022-03-21 21:42:00 Che Barlow Uni [facility] VANCOMYCIN RANDOM LEVEL 2022-03-21 16:48:00 Celso Duran [facility] POCT GLUCOSE (AUTOMATED) 2022-03-21 16:48:00 CainChe Uni versity of [facility] VANCOMYCIN RANDOM LEVEL 2022-03-21 16:48:00 Celso Duran [facility] POCT GLUCOSE (AUTOMATED) 2022-03-21 16:48:00 CainChe Uni versity of [facility] VANCOMYCIN RANDOM LEVEL 2022-03-21 16:48:00 Celso Duran [facility] POCT GLUCOSE (AUTOMATED) 2022-03-21 16:48:00 Edlexi Che Philip versity of [facility] VANCOMYCIN RANDOM LEVEL 2022-03-21 16:48:00 Celso Duran [facility] POCT GLUCOSE (AUTOMATED) 2022-03-21 16:48:00 Cain Che Uni versity of [facility] POCT GLUCOSE (AUTOMATED) 2022-03-21 13:28:00 Edlexi Che Uni versity of [facility] POCT GLUCOSE (AUTOMATED) 2022-03-21 13:28:00 Edionhima Thomasmargarette Uni versity of [facility] POCT GLUCOSE (AUTOMATED) 2022-03-21 13:28:00 Edlexi Che Uni versity of [facility] POCT GLUCOSE (AUTOMATED) 2022-03-21 13:28:00 Cain [facility]argarette [facility] LIPID PANEL ([id number])(TOTAL 2022-03-21 09:11:00 [facility] CHOLESTEROL, Medical Branch TRIGLYCERIDES, HDL) LIPID PANEL (48654)(TOTAL 2022-03-21 09:11:00 [facility] CHOLESTEROL, Medical Branch TRIGLYCERIDES, HDL) LIPID PANEL (46729)(TOTAL 2022-03-21 09:11:00 [facility] CHOLESTEROL, [facility] TRIGLYCERIDES, HDL) LIPID PANEL (68748)(TOTAL 2022-03-21 09:11:00 [facility] CHOLESTEROL, [facility] TRIGLYCERIDES, HDL) POCT GLUCOSE (AUTOMATED) 2022-03-21 01:35:00 EdChe elliott versity of [facility] POCT GLUCOSE (AUTOMATED) 2022-03-21 01:35:00 EdChe elliott versity of [facility] POCT GLUCOSE (AUTOMATED) 2022-03-21 01:35:00 Che Barlow versity of [facility] Branch POCT GLUCOSE (AUTOMATED) 2022-03-21 01:35:00 EdlexiChe Uni versity of [facility] POCT GLUCOSE (AUTOMATED) 2022-03-20 22:01:00 EdChe elliott versity of [facility] POCT GLUCOSE (AUTOMATED) 2022-03-20 22:01:00 HoldenaveryhimaChe versity of [facility] POCT GLUCOSE (AUTOMATED) 2022-03-20 22:01:00 Che Barlow versity of [facility] POCT GLUCOSE (AUTOMATED) 2022-03-20 22:01:00 CainChe versity of [facility] POCT GLUCOSE (AUTOMATED) 2022-03-20 16:38:00 EdChe elliott versity of [facility] POCT GLUCOSE (AUTOMATED) 2022-03-20 16:38:00 HoldenaveryhimaChe versity of [facility] POCT GLUCOSE (AUTOMATED) 2022-03-20 16:38:00 HoldenChe elliott versity of [facility] POCT GLUCOSE (AUTOMATED) 2022-03-20 16:38:00 CainChe versity of [facility] VANCOMYCIN TROUGH 2022-03-20 15:18:00 Roger [facility] VANCOMYCIN TROUGH 2022-03-20 15:18:00 Roger [facility] VANCOMYCIN TROUGH 2022-03-20 15:18:00 Roger [facility] VANCOMYCIN TROUGH 2022-03-20 15:18:00 Roger [facility] DUPLEX ARTERIAL LEG LEFT - 2022-03-20 13:52:00 Denilson Corona [facility] BY VASCULAR LAB Medical Branch DUPLEX ARTERIAL LEG LEFT - 2022-03-20 13:52:00 Denilson Corona [facility] BY VASCULAR LAB Medical Branch DUPLEX ARTERIAL LEG LEFT - 2022-03-20 13:52:00 [facility] DUPLEX ARTERIAL LEG LEFT - 2022-03-20 13:52:00 [facility] URINALYSIS 2022-03-20 12:52:00 Jian [facility] URINALYSIS 2022-03-20 12:52:00 Jian [facility] URINALYSIS 2022-03-20 12:52:00 Jian [facility] URINALYSIS 2022-03-20 12:52:00 [facility] POCT GLUCOSE (AUTOMATED) 2022-03-20 12:26:00 Cain [facility] POCT GLUCOSE (AUTOMATED) 2022-03-20 12:26:00 Cain [facility] POCT GLUCOSE (AUTOMATED) 2022-03-20 12:26:00 Cain [facility] POCT GLUCOSE (AUTOMATED) 2022-03-20 12:26:00 Cain [facility] CBC WITH DIFF 2022-03-20 10:04:00 Cain [facility] BASIC METABOLIC PANEL (NA, 2022-03-20 10:04:00 Che Barlow [facility] K, CL, CO2, GLUCOSE, BUN, Medica l Branch CREATININE, CA) N-TERMINAL PRO-BNP 2022-03-20 10:04:00 Ger [facility] BASIC METABOLIC PANEL (NA, 2022-03-20 10:04:00 Cain [facility] K, CL, CO2, GLUCOSE, BUN, Medica l Branch CREATININE, CA) CBC WITH DIFF 2022-03-20 10:04:00 Cain [facility] N-TERMINAL PRO-BNP 2022-03-20 10:04:00 Ger [facility] BASIC METABOLIC PANEL (NA, 2022-03-20 10:04:00 Cain [facility], [facility], CO2, GLUCOSE, BUN, Medica l Branch CREATININE, CA) CBC WITH DIFF 2022-03-20 10:04:00 Cain [facility] N-TERMINAL PRO-BNP 2022-03-20 10:04:00 Nwokedtab [facility] BASIC METABOLIC PANEL (NA, 2022-03-20 10:04:00 Edionhima, Che [facility] K, CL, CO2, GLUCOSE, BUN, Medica l Branch CREATININE, CA) CBC WITH DIFF 2022-03-20 10:04:00 Cain [facility] N-TERMINAL PRO-BNP 2022-03-20 10:04:00 Nwokedtab [facility] POCT GLUCOSE (AUTOMATED) 2022-03-20 01:13:00 Che Barlow Uni versity of [facility] POCT GLUCOSE (AUTOMATED) 2022-03-20 01:13:00 Che Barlow Uni versity of [facility] POCT GLUCOSE (AUTOMATED) 2022-03-20 01:13:00 Che Barlow [facility] [place] [facility] POCT GLUCOSE (AUTOMATED) 2022-03-20 01:13:00 Thomas Barlowy Uni versity of [facility] POCT GLUCOSE (AUTOMATED) 2022-03-19 22:00:00 Thomas Barlowy [facility] [place] [facility] POCT GLUCOSE (AUTOMATED) 2022-03-19 22:00:00 Edlexi Mercy [facility] [place] [facility] POCT GLUCOSE (AUTOMATED) 2022-03-19 22:00:00 EdThomas elliotty [facility] [place] [facility] POCT GLUCOSE (AUTOMATED) 2022-03-19 22:00:00 Edlexi Mercy [facility] [place] [facility] POCT GLUCOSE (AUTOMATED) 2022-03-19 16:42:00 EdThomas elliotty [facility] [place] [facility] POCT GLUCOSE (AUTOMATED) 2022-03-19 16:42:00 EdChe elliott Uni [facility] POCT GLUCOSE (AUTOMATED) 2022-03-19 16:42:00 Cain Che Philip versity [facility] POCT GLUCOSE (AUTOMATED) 2022-03-19 16:42:00 Cain [facility] BASIC MET[facility]OLIC PANEL (NA, 2022-03-19 15:22:00 Nwokedi, Cristy [facility] [place] K, CL, CO2, GLUCOSE, BUN, Medica l Branch CREATININE, CA) BASIC METABOLIC PANEL (NA, 2022-03-19 15:22:00 Nwokedi, Cristy [facility] [place] K, CL, CO2, GLUCOSE, BUN, Medica l Branch CREATININE, CA) BASIC METABOLIC PANEL (NA, 2022-03-19 15:22:00 Nwokedi, Cristy [facility] [place] K, CL, CO2, GLUCOSE, BUN, Medica l Branch CREATININE, CA) BASIC METABOLIC PANEL (NA, 2022-03-19 15:22:00 Nwokedi, Cristy [facility] [place] K, CL, CO2, GLUCOSE, BUN, Medica l Branch CREATININE, CA) POCT GLUCOSE (AUTOMATED) 2022-03-19 12:30:00 Cain Che Philip [facility] POCT GLUCOSE (AUTOMATED) 2022-03-19 12:30:00 Cain [facility]SE (AUTOMATED) 2022-03-19 12:30:00 Cain [facility] PO[facility] GLUCOSE (AUTOMATED) 2022-03-19 12:30:00 Cain Thomasmargarette Tamera [facility] BASIC METABOLIC PANEL (NA, 2022-03-19 09:10:00 Emory Hampton [facility] [place] K, CL, CO2, GLUCOSE, BUN, Medica l Branch CREATININE, CA) BASIC METABOLIC PANEL (NA, 2022-03-19 09:10:00 Emory Hampton [facility] [place] K, CL, CO2, GLUCOSE, BUN, Medica l Branch CREATININE, CA) BASIC METABOLIC PANEL (NA, 2022-03-19 09:10:00 Emory Hampton [facility] [place] K, CL, CO2, GLUCOSE, BUN, Medica l Branch CREATININE, CA) BASIC METABOLIC PANEL (NA, 2022-03-19 09:10:00 Emory Hampton U [facility] K, CL, CO2, GLUCOSE, BUN, Medica l Branch CREATININE, CA) POCT GLUCOSE(AGE >30DAYS) 2022-03-19 07:48:00 JianMarilu blair Un iversity of [facility] POCT GLUCOSE(AGE >30DAYS) 2022-03-19 07:48:00 JianMarilu Un iversity of [facility] POCT GLUCOSE(AGE >30DAYS) 2022-03-19 07:48:00 JianMariluge Un iversity of [facility] POCT GLUCOSE(AGE >30DAYS) 2022-03-19 07:48:00 [facility]ilu [facility] PO[facility]SE (AUTOMATED) 2022-03-19 07:42:00 JianMarilu blair [facility] PO[facility]UCOSE (AUTOMATED) 2022-03-19 07:42:00 JianMarilu [facility] PO[facility] GLUCOSE (AUTOMATED) 2022-03-19 07:42:00 JianMarilu [facility] PO[facility] GLUCOSE (AUTOMATED) 2022-03-19 07:42:00 JianMarilu Uni [facility] XR CHEST 1 2022-03-19 07:06:32 JianMarilu blair [facility] XR CHEST 1 2022-03-19 07:06:32 JianMarilu blair [facility] XR CHEST 1 2022-03-19 07:06:32 JianMarilu james [facility] XR CHEST 1 2022-03-19 07:06:32 JianMarilu blair [facility] XR TOES 2 VW LEFT 2022-03-19 06:40:00 JianMarilu blair [facility] XR TOES 2 VW LEFT 2022-03-19 06:40:00 JianMarilu blair [facility] XR TOES 2 VW LEFT 2022-03-19 06:40:00 Marilu Villar [facility] XR TOES 2 VW LEFT 2022-03-19 06:40:00 Marilu Villar [facility] HB ECG ROUTINE & RHYTHM 2022-03-19 06:35:34 Marilu Villar [facility] HB ECG ROUTINE & RHYTHM 2022-03-19 06:35:34 Marilu Villar [facility] HB ECG ROUTINE & RHYTHM 2022-03-19 06:35:34 Marilu Villar [facility] HB ECG ROUTINE & RHYTHM 2022-03-19 06:35:34 Marilu Villar [facility] AC PANEL 21 + LACTIC ACID 2022-03-19 06:20:00 [facility]ilu [facility] AC PANEL 21 + LACTIC ACID 2022-03-19 06:20:00 [facility]u [facility] AC PANEL 21 + LACTIC ACID 2022-03-19 06:20:00 [facility]ilu [facility] AC PANEL 21 + LACTIC ACID 2022-03-19 06:20:00 Marilu Villar Un [facility] BLOOD CULTURE SCREEN 2022-03-19 06:16:00 Marilu Villar [facility] CBC WITH DIFF 2022-03-19 06:16:00 Marilu Villar [facility] COMP. METABOLIC PANEL 2022-03-19 06:16:00 Marilu Villar [facility] ([id number]) [facility] GLYCOSYLATED HEMOGLOBIN 2022-03-19 06:16:00 Cristy Cyr [facility] (A1C) [facility] BLOOD CULTURE SCREEN 2022-03-19 06:16:00 Marilu Villar [facility] COMP. METABOLIC PANEL 2022-03-19 06:16:00 Marilu Villar [facility] ([id number]) [facility] CBC WITH DIFF 2022-03-19 06:16:00 Marilu Villar [facility] GLYCOSYLATED HEMOGLOBIN 2022-03-19 06:16:00 Ger [facility] [place] BLOOD CULTURE SCREEN 2022-03-19 06:16:00 Marilu Villar [facility] COMP. METABOLIC PANEL 2022-03-19 06:16:00 Marilu Villar [facility] ([id number]) [facility] [place] CBC WITH DIFF 2022-03-19 06:16:00 Marilu Villar [facility] GLYCOSYLATED HEMOGLOBIN 2022-03-19 06:16:00 Ger [facility] ([facility]) [facility] BLOOD CULTURE SCREEN 2022-03-19 06:16:00 Marilu Villar [facility] COMP. METABOLIC PANEL 2022-03-19 06:16:00 Marilu Villar [facility] ([id number]) [facility] [place] CBC WITH DIFF 2022-03-19 06:16:00 Marilu Villar [facility] GLYCOSYLATED HEMOGLOBIN 2022-03-19 06:16:00 Ger [facility] POCT GLUCOSE(AGE >30DAYS) 2022-03-19 06:15:00 Marilu Villar Un [facility] POCT GLUCOSE(AGE >30DAYS) 2022-03-19 06:15:00 Marilu Villar Un [facility] POCT GLUCOSE(AGE >30DAYS) 2022-03-19 06:15:00 Marilu Villar Un [facility] POCT GLUCOSE(AGE >30DAYS) 2022-03-19 06:15:00 Marilu Villar Un [facility] POCT GLUCOSE (AUTOMATED) 2022-03-19 06:13:00 Marilu Villar Uni versity [facility] POCT GLUCOSE (AUTOMATED) 2022-03-19 06:13:00 Marilu Villar Uni versity [facility] POCT GLUCOSE (AUTOMATED) 2022-03-19 06:13:00 [facility] PO[facility]SE (AUTOMATED) 2022-03-19 06:13:00 Marilu Villar [facility] CONSENT/REFUSAL FOR 2022-03-19 05:46:54 Doctor Unassigned, [facility] DIAGNOSIS AND TREAT[facility] [place] CONSENT/REFUSAL FOR 2022-03-19 05:46:54 Doctor Unassigned, [facility] DIAGNOSIS AND TREATMENT [facility] CONSENT/REFUSAL FOR 2022-03-19 05:46:54 Doctor Unassigned, [facility] DIAGNOSIS AND TREATMENT [facility] CONSENT/REFUSAL FOR 2022-03-19 05:46:54 Doctor Unassigned, [facility] DIAGNOSIS AND TREATMENT [facility] HOSPITAL ADMISSION 2022-03-19 05:01:00 Doctor Unaalina [facility] HOSPITAL ADMISSION 2022-03-19 05:01:00 Doctor Unalaina [facility] HOSPITAL ADMISSION 2022-03-19 05:01:00 Doctor Unaalina [facility] HOSPITAL ADMISSION 2022-03-19 05:01:[address] [facility] POCT HEMOGLOBIN A1C TEST 2022-01-12 21:05:00 Neo Knutson [facility] POCT HEMOGLOBIN A1C TEST 2022-01-12 21:05:00 Neo Knutson [facility] Plan of Care Planned Activity Planned Date Details Comments Source Future Scheduled 2022 Screening for [facility] Test 00:00:00 malignant neoplasm of Medica l Branch colon (procedure) [code = 015882927] Future Scheduled 2022 Screening for [facility] Test 00:00:00 malignant neoplasm of Medica l Branch colon (procedure) [code = 604754050] Future Scheduled 2021-09-07 Creatinine [facility] Test 00:00:00 measurement Medical Branch (procedure) [code = 38450786] Future Scheduled 2021-09-07 Creatinine [facility] Test 00:00:00 measurement Medical Branch (procedure) [code = 48346686] Future Scheduled 2021-09-05 Calculated low [facility] Test 00:00:00 density lipoprotein Medical Branch cholesterol level (procedure) [code = 020430680] Future Scheduled 2021-09-05 Calculated low [facility] [place] Test 00:00:00 density lipoprotein Medical Branch cholesterol level (procedure) [code = 607624272] Future Scheduled 2021-05-08 Depression screening [facility] [place] Test 00:00:00 (procedure) [code = Medical Branch 561018126] Future Scheduled 2021-05-08 Depression screening [facility] [place] Test 00:00:00 (procedure) [code = Medical Branch 391758756] Future Scheduled 2021-03-07 Hemoglobin A1c [facility] [place] Test 00:00:00 measurement Medical Branch (procedure) [code = 14093825] Future Scheduled 2021-03-07 Hemoglobin A1c [facility] [place] Test 00:00:00 measurement Medical Branch (procedure) [code = 90865343] Future Scheduled 2021-01-27 INFLUENZA VACCINE Univer [facility] Test 00:00:00 (Season Ended) [code Medical Branch = INFLUENZA VACCINE (Season Ended)] Future Scheduled 2021-01-27 INFLUENZA VACCINE [facility] [place] Test 00:00:00 (Season Ended) [code Medical Branch = INFLUENZA VACCINE (Season Ended)] Future Scheduled 2020-10-31 Screening for [facility] Test 00:00:00 malignant neoplasm of Medica l Branch breast (procedure) [code = 659954638] Future Scheduled 2020-10-31 Screening for [facility] Test 00:00:00 malignant neoplasm of Medica l Branch breast (procedure) [code = 132812261] Future Scheduled 2020-09-25 Screening for [facility] Test 00:00:00 malignant neoplasm of Medica l Branch cervix (procedure) [code = 051013793] Future Scheduled 2020-09-25 Screening for [facility] Test 00:00:00 malignant neoplasm of Medica l Branch cervix (procedure) [code = 438572405] Future Scheduled 2020-05-10 Diabetic foot [facility] Test 00:00:00 examination Medical Branch (regime/therapy) [code = 004132297] Future Scheduled 2020-05-10 Diabetic foot [facility] Test 00:00:00 examination Medical Branch (regime/therapy) [code = 812723911] Future Scheduled 2019-09-01 Microalbumin [facility] Test 00:00:00 measurement, urine, Medical Branch quantitative (procedure) [code = 130531347] Future Scheduled 2019-09-01 Microalbumin [facility] Test 00:00:00 measurement, urine, Medical Branch quantitative (procedure) [code = 458402238] Future Scheduled 1991 DTaP,Tdap,and Td [facility] [place] Test 00:00:00 Vaccines (1 - Tdap) Medical Branch [code = DTaP,Tdap,and Td Vaccines (1 - Tdap)] Future Scheduled 1991 DTaP,Tdap,and Td [facility] [place] Test 00:00:00 Vaccines (1 - Tdap) Medical Branch [code = DTaP,Tdap,and Td Vaccines (1 - Tdap)] Future Scheduled 1990 Hepatitis C screening [facility] [place] Test 00:00:00 (procedure) [code = Medical Branch 482121635] Future Scheduled 1990 Hepatitis C screening [facility] [place] Test 00:00:00 (procedure) [code = Medical Branch 123898223] Future Scheduled 1988 SARS-CoV-2 (COVID-19) [facility] [place] Test 00:00:00 Vaccine (1) [code = Medical Branch SARS-CoV-2 (COVID-19) Vaccine (1)] Future Scheduled 1988 SARS-CoV-2 (COVID-19) [facility] [place] Test 00:00:00 Vaccine (1) [code = Medical Branch SARS-CoV-2 (COVID-19) Vaccine (1)] Future Scheduled 1982 Examination of retina [facility] [place] Test 00:00:00 (procedure) [code = Medical Branch 605164197] Future Scheduled 1982 Examination of retina [facility] [place] Test 00:00:00 (procedure) [code = Medical Branch 400270730] Future Scheduled 1978 PNEUMOCOCCAL 0-64 [facility] [place] Test 00:00:00 YEARS COMBINED SERIES Medica l Branch (1 of 1 - PPSV23) [code = PNEUMOCOCCAL 0-64 YEARS COMBINED SERIES (1 of 1 - PPSV23)] Future Scheduled 1978 PNEUMOCOCCAL 0-64 [facility] [place] Test 00:00:00 YEARS COMBINED SERIES Medica l Branch (1 of 1 - PPSV23) [code = PNEUMOCOCCAL 0-64 YEARS COMBINED SERIES (1 of - PPSV23)] Encounters Start End Encounter Admission Attending Care Care Encounter Source Date/Time Date/Time Type Type Clinicians Facility Department ID 2022-03-19 [facility] Marilu Villar [id number] Univers 00:57:00 Encounter Che Barlow [id number] ity of [place] 3.104.2.7 [place] Rachelle Guthrie .[id number] Medical Alden Garcia8 B arnulfo 2021-03-29 Emergency [facility] [id number] Univers 23:28:09 ity of [facility] 2021-03-28 Emergency X [facility] [id number] Univers 11:58:59 ity of [facility] 2021-03-28 Emergency [facility] [id number] Univers 11:58:17 ity of [facility] 2021-03-26 Emergency [facility] [id number] Univers 12:39:58 ity of [facility] 2022-04-04 2022-04-04 Telephone VICKIE Scott [id number] Univers 00:00:00 00:00:00 Ryanne [facility] 350.1.13.10 ity of [facility] [place] [id number] [facility] 205 Branch 2022-03-29 2022-03-29 Surgery DIANA Scott [id number] Univers 09:34:00 12:24:00 Ryanne AIDA 350.1.13.10 ity of [facility] 4.2.7.2.686 Raffy as [id number] [facility] 103 Branch 2022-03-28 2022-03-28 Surgery DIANA Woodward 1.2.840.114 [id number] Univers 11:35:00 13:35:00 Darrel A AIDA 350.1.13.10 it y of [facility] 4.2.7.2.686 Raffy as [id number] [facility] blanquita 840 Branch 2022-03-27 2022-03-27 Anesthesia Carine 1.2.840.6 [id number] Univers 07:57:13 07:57:13 Event Sharath 21172.1.1 ity of 3.104.2.7 [place] .3.823710 Medica l .8 Branch 2022-03-25 2022-03-25 Surgery DIANA Scott 1.2.840.114 [id number] Univers 07:00:00 11:02:00 Ryanne PARRA 350.1.13.10 ity of [facility] 4.2.7.2.686 Raffy as [id number] [facility] 103 Branch 2022-03-25 2022-03-25 Anesthesia Jeff Gupta 1.2.840.1 [id number] Univers 07:52:00 09:21:00 Event Luis Benitez 64200.1.1 ity of 3.104.2.7 [place] .3.833037 Medica l .8 Branch 2022-03-22 2022-03-22 Travel 1.2.840.1 [id number] [id number] Univers 00:00:00 00:00:00 76067.1.1 350.1.13.10 ity of 3[place]104.2.[place] .3.639349 084.8 Medica l .8 Branch 2022-03-19 2022-03-19 Inpatient Darion GUTHRIE [facility] [id number] Univers 00:57:00 00:57:00 RACHELLE ity of [facility] 2022-03-19 2022-03-19 Travel 1.2.840.1 1.2.605.987 [id number] Univers 00:00:00 00:00:00 67167.1.1 350.1.13.10 ity of 3[place]104.2.[place] .3.188075 084.8 Medica l .8 Branch 2022-03-15 2022-03-15 Outpatient Sonya WOODARD [facility] [id number] Univers 16:00:00 16:00:00 WENTONG ity of [facility] 2022-03-14 2022-03-14 Telephone Mark, 1.2.840.9 [id number] Univers 00:00:00 00:00:00 Anatoly H 39293.1.1 ity of 3.104.2.7 [place] .3.547411 Medica l .[address] 2022-03-01 2022-03-01 Refill Mark, 1.2.840.1 [id number] Univers 00:00:00 00:00:00 Anatoly H 72290.1.1 ity of 3.104.2.7 [place] .3.375455 Medica l .8 [place] 2022-01-31 2022-01-31 Refill Moore, 1.2.840.8 [id number] Univers 00:00:00 00:00:00 Wondiful A 43926.1.1 i ty of 3.104.2.7 [place] .3.924945 Medica l .8 [place] 2022-01-31 2022-01-31 Telephone Minh, 1.2.840.1 [id number] Univers 00:00:00 00:00:00 Madi 72963.1.1 ity of 3.104.2.7 [place] .3.289721 Medica l .8 [place] 2022-01-21 2022-01-21 Outpatient Sonya FLORES [facility] [id number] Univers 12:00:00 12:00:00 ANATOLY turner [facility] 2022-01-21 2022-01-21 Outpatient Sonya FLORES [facility] [id number] Univers 12:00:00 12:00:00 ANATOLY turner [facility] 2022-01-21 2022-01-21 Outpatient Sonya FLORES [facility] [id number] Univers 12:00:00 12:00:00 ANATOLY turner [facility] 2022-01-21 2022-01-21 Outpatient Sonya FLORES [facility] [id number] Univers 12:00:00 12:00:00 ANATOLY turner [facility] 2022-01-15 2022-01-15 Patient Doctor 1.2.840.1 [id number] Univers 00:00:00 00:00:00 Secure Msg Unassigned, 27514.1.1 ity of [place] 3.104.2.7 [place] .3.893175 Medica l .8 [address] 2022-01-12 2022-01-12 Outpatient R NEO KNUTSON [facility] [id number] Univers 16:00:00 16:41:18 NEO KNUTSON ity of [facility] 2022-01-12 2022-01-12 Office Eamon Neo 1.2.840.1 [id number] Univers 16:00:00 16:41:18 Visit 51831.1.1 ity of 3.104.2.7 [place] .3.041590 Medica l .8 [place] 2022-01-12 2022-01-12 Outpatient R NEO KNUTSON [facility] [id number] Univers 15:30:00 15:30:00 NEO KNUTSON ity of [facility] 2022-01-12 2022-01-12 Travel 1.2.840.1 1.2.363.964 [id number] Univers 00:00:00 00:00:00 19427.1.1 350.1.13.10 ity of 3.104.2.7 4[place].3.698 [place] .3.346905 084.8 Medica l .8 [address] 2021-11-22 2021-11-22 Emergency [facility] [id number] Univers 16:27:00 18:56:00 FABBY ity of [facility] 2021-11-22 2021-11-22 Emergency [facility] 1.2.840.114 [id number] Univers 16:27:00 18:56:00 Fabby CHAN 350.1.13.10 ity of [place] 4.2.7.2.686 [facility] [phone] [facility] 0[address] 2021-11-22 2021-11-22 Emergency X [facility] ERT [id number] Univers 16:19:00 16:19:00 ity of [facility] 2021-11-22 2021-11-22 Office [facility] 1.2.840.114 [id number] Univers 14:30:00 16:04:36 Visit Madi HEALTH 350.1.13.10 it y of [place] 4.2.7.2.686 Raffy as CHARLY?BLEA [phone] [facility] [address] MEDICAL OFFICE [facility] 2021-11-22 2021-11-22 [facility] [id number] Univers 14:30:00 16:04:36 MADI yue [facility] 2021-11-22 2021-11-22 Outpatient [facility] [id number] Univers 14:30:00 14:30:00 MADI margarette [facility] 2021-11-22 2021-11-22 Orders Doctor VAISHALI 1.2.840.114 [id number] Univers 00:00:00 00:00:00 Only Unassigned, AIDA 350.1.13.10 [facility] 4.2.7.2.686 Raffy as [phone] [address] 2021-11-10 2021-11-10 Outpatient R EAMON [facility] [id number] Univers 10:00:00 10:00:00 NEO KNUTSON [facility] 2021-11-10 2021-11-10 Outpatient R EAMON [facility] [id number] Univers 10:00:00 10:00:00 NEO KNUTSON [facility] 2021-11-10 2021-11-10 Telephone Eamon [facility] 1.2.818.892 [id number] Univers 00:00:00 00:00:00 HEALTH 350.1.13.10 it y of [place] 4.2.7.2.686 Raffy as CHARLY?BLEA [phone] [facility] [address] MEDICAL OFFICE [facility] 2021-11-08 2021-11-08 Orders Doctor TOM 1.2.840.114 [id number] Univers 00:00:00 00:00:00 Only Unassigned, AIDA 350.1.13.10 ity of [place] [facility] 4.2.7.2.686 Raffy as [phone] [address] 2021-11-05 2021-11-05 Outpatient R MINH [facility] [id number] Univers 15:30:00 15:30:00 MADI ity of [facility] 2021-11-05 2021-11-05 Telephone [facility] 1.2.230.896 [id number] Univers 00:00:00 00:00:00 Adeola HEALTH 350.1.13.10 it [facility] 4.2.7.2.686 Raffy as CHARLY?BLEA [phone] [facility] 220 [facility] OFFICE [facility] 2021-10-20 2021-10-20 Telephone [facility] 1.2.151.178 [id number] Univers 00:00:00 00:00:00 Adeola HEALTH 350.1.13.10 it [facility] 4.2.7.2.686 Raffy as CHARLY?BLEA [phone] [facility] 220 [facility] OFFICE [facility] 2021-10-20 2021-10-20 Orders Doctor VAISHALI 1.2.840.114 [id number] Univers 00:00:00 00:00:00 Only Unassigned, AIDA 350.1.13.10 [place] of [place] [facility] 4.2.7.2.686 Raffy as [phone] [address] 2021-10-15 2021-10-15 Coat [facility], Ang - David [facility] 1.2.840.1 [id number] Univers 09:45:00 10:00:00 [facility] 350.1.13.10 ity of [place] 4.2.7.2.686 Raffy as CHARLY?BLEA [phone] [facility] 353 [facility] OFFICE [facility] 2021-10-15 2021-10-15 Outpatient R BANG [facility] [id number] Univers 09:45:00 09:45:00 ADEOLA ity of [facility] 2021-10-15 2021-10-15 Office [facility] 1.2.840.114 [id number] Univers 09:00:00 09:37:13 Visit Adeola [place] 350.1.13.10 it y of [place] 4.2.7.2.686 Raffy as CHARLY?BLEA [phone] [address] MEDICAL OFFICE [facility] 2021-10-15 2021-10-15 Outpatient R BANG [facility] [id number] Univers 09:00:00 09:37:13 ADEOLA turner [facility] 2021-10-15 2021-10-15 Outpatient R BAGN [facility] [id number] Univers 09:00:00 09:00:00 ADEOLA turner [facility] 2021-08-27 2021-08-27 Out[facility] [id number] Univers 16:00:00 17:02:36 ANATOLY turner [facility] 2021-08-27 2021-08-27 Office [facility] 1.2.147.383 [id number] Univers 16:00:00 17:02:36 Visit Anatoly Femasys 350.1.13.10 it y of [place] 4.2.7.2.686 Raffy as CHARLY?BLEA [phone] [address] MEDICAL OFFICE [facility] 2021-08-27 2021-08-27 Outpatient [facility] [id number] Univers 16:00:00 16:00:00 ANATOLY turner [facility] 2021-08-09 2021-08-09 Orders Doctor VAISHALI 1.2.840.114 [id number] Univers 00:00:00 00:00:00 Only Unassigned, AIDA 350.1.13.10 [place] [facility] 4.2.7.2.686 Raffy as [phone] [address] 2021-07-19 2021-07-19 Orders Doctor TOM 1.2.840.114 [id number] Univers 00:00:00 00:00:00 Only Unassigned, AIDA 350.1.13.10 [place]y of [place] HOSPITAL 4.2.7.2.686 Raffy as [phone] [address] 2021-07-05 2021-07-05 Telephone Igor [facility] 1.2.840.114 [id number] Univers 00:00:00 00:00:00 Wondiful A HEALTH 350.1.13.10 ity of [place] 4.2.7.2.686 Raffy as CHARLY?BLEA [phone] [address] OFFICE [facility] 2021-06-21 2021-06-21 Outpatient R IGOR [facility] [id number] Univers 16:00:00 16:54:48 WONDIFUL ity o f [facility] 2021-06-21 2021-06-21 Office [facility] 1.2.840.114 [id number] Univers 16:00:00 16:54:48 Visit Wondiful A HEALTH 350.1.13.10 ity of [place] 4.2.7.2.686 Raffy as CHARLY?BLEA [phone] [address] OFFICE [facility] 2021-05-15 2021-05-15 Refill [facility] 1.2.840.114 [id number] Univers 00:00:00 00:00:00 Wondiful A HEALTH 350.1.13.10 ity of [place] 4.2.7.2.686 Raffy as PROFESSIO [phone] [address] ONE 2021-05-13 2021-05-13 Orders Doctor VAISHALI 1.2.840.114 [id number] Univers 00:00:00 00:00:00 Only Unassigned, AIDA 350.1.13.10 ity of [place] [facility]OSPITAL 4.2.7.2.686 Raffy as [phone] [facility] [address] 2021-02-12 2021-02-12 Emergency [facility] 1.2.840.114 [id number] Univers 14:34:00 17:16:00 Fabby Chan 350.1.13.10 ity of [place].2.[place] [phone] [facility] [address] 2021-02-12 2021-02-12 Office [facility] 1.2.840.114 [id number] Univers 13:04:40 15:13:23 Visit Adeola Health 350.1.13.10 it y of [place] 4.2.7.2.686 Raffy as Charly?Blea [phone] Dc dical ivettey [address] [facility] Building 2021-02-12 2021-02-12 Outpatient R BANG [facility] [id number] Univers 13:00:00 13:00:00 ADEOLA ity of [facility] 2021-01-19 2021-01-19 Transition Matthew Daniel 1.2.840.114 [id number] Univers 00:00:00 00:00:00 of Care Phyllis B Mata 350.1.13.10 it y [place]7.[place] [phone] [facility] [address] 2021-01-19 2021-01-19 Transition Matthew Daniel 1.2.840.114 [id number] Univers 00:00:00 00:00:00 of Care Phyllis B Mata 350.1.13.10 it [place] 4[place]2.7.2.[place] [phone] [facility] [address] 2021-01-15 2021-01-17 [facility] 1.2.840.114 [id number] Univers 15:17:00 13:06:00 Encounter Celso Chan 350.1.13.10 ity of [place].7.2.[place] [phone] [facility] [address] 2021-01-15 2021-01-15 Office Gregory [facility] 1.2.840.114 [id number] Univers 14:09:25 15:11:21 Visit Lily Chan 350.1.13.10 it[place] of [place].2.[place] [facility] [phone] Dc sonu nal 059 [facility] 2021-01-15 2021-01-15 Outpatient R GREGORY [facility] [id number] Univers 14:40:00 14:40:00 LILY turner o f [facility] 2021-01-01 2021-01-01 Office [facility] 1.2.151.687 [id number] Univers 11:28:43 12:58:14 Visit Anatoly Chan 350.1.13.10 i ty of [place].7.2.[place] Profess[place] [phone] Dc dical [facility] 220 [facility] 2021-01-01 2021-01-01 Office [facility] 1.2.689.351 [id number] [id number] Univers 11:28:43 12:58:14 Visit Anatoly Chan 350.1.13.10 i ty of [place].7.2.[place] Profess[place] [phone] [facility] 220 [facility] 2021-01-01 2021-01-01 Outpatient [facility] [id number] Univers 11:30:00 11:30:00 ANATOLY turner of [facility] 2020-12-18 2020-12-18 Refleticia [facility]INS[facility] 1.2.840.114 [id number] Univers 00:00:00 00:00:00 Wondiful A [facility] 350.1.13.10 ity of [place] 4.2.7.2.686 Raffy as Professio [phone] [facility] [address] Office Building One 2020-12-02 2020-12-02 Outpatient [facility] [id number] Univers 16:00:00 16:00:00 LILY ity o [facility] 2020-11-30 2020-12-01 [facility] Lily Jenkins 1.2.840.114 [id number] Univers 17:33:00 15:15:00 Encounter Ra [place] 350.1.1 3.10 ity of [facility] 4.2.7.2 .686 [place] eLsia Jc [phone] [place] [address] 2020-12-01 2020-12-01 Outpatient [facility] [id number] Univers 14:00:00 14:00:00 WONDIFUL ity o f [facility] 2020-11-30 2020-11-30 Outpatient R [facility] [id number] Univers 08:00:00 08:00:00 ity of [facility] 2020-11-30 2020-11-30 Hospital Trace Diana 1.2.840.114 [id number] Univers 07:45:00 07:59:00 Encounter Darrel Bennie Aida 350.1.13.[address] [facility] 4.2.7.2.686 Raffy as [phone] [address] 2020-11-27 2020-11-27 Outpatient R MARK [facility] [id number] Univers 14:00:00 14:00:00 ANATOLY ity [facility] 2020-11-25 2020-11-25 Telephone Gregory Diana 1.2.369.161 [id number] Univers 00:00:00 00:00:00 Lily Parra 350.1.13.10 i ty of Hospital 4.2.7.2.686 Raffy as [phone] [address] 2020-11-25 2020-11-25 Telephone [facility] 1.2.439.131 [id number] Univers 00:00:00 00:00:00 Patient Dustin 350.1.13.10 i ty of [place] 4.2.7.2.686 Raffy as Have A Professio [phone] Dc dical nal 843 [facility] 2020-11-16 2020-11-16 Telephone Gregory Diana 1.2.954.461 [id number] Univers 00:00:00 00:00:00 Lily Parra 350.1.13.[address] [facility] 4.2.7.2.686 Raffy as [phone] [address] 2020-11-13 2020-11-13 Office [facility] 1.2.840.114 [id number] Univers 14:46:41 15:21:27 Visit Lily Chan 350.1.13.10 ity of [place].2.[place] [phone] Dc dical nal 059 [facility] 2020-11-13 2020-11-13 Outpatient R GREGORY [facility] [id number] Univers 14:00:00 14:00:00 LILY turner o f [facility] 2020-11-12 2020-11-12 Telephone Igor [facility] 1.2.840.114 [id number] Univers 00:00:00 00:00:00 Wondiful A Health 350.1.13.10 ity of [place] 4.2.7.2.686 Raffy as Professio [phone] [facility] 044 [facility] One 2020-10-28 2020-10-28 Pre Visit Igor [facility] 1.2.840.114 [id number] Univers 00:00:00 00:00:00 Outreach Wondiful A Health 350.1.13.10 ity of [place] 4.2.7.2.686 Raffy as Professio [phone] [address] 2020-10-07 2020-10-07 Office Woodard [facility] 1.2.840.114 [id number] Univers 13:57:34 15:30:50 Visit Osielong [place] 350.1.13.10 i ty of [place] 4.2.7.2.[place] Profess[place] [phone] [facility] 220 [facility] 2020-10-07 2020-10-07 Outpatient R VANCE [facility] [id number] Univers 14:00:00 14:00:00 [facility] 2020-10-06 2020-10-06 Outpatient R VANCE [facility] [id number] Univers 14:30:00 14:30:00 [facility] 2020-10-01 2020-10-01 Office [facility] 1.2.840.114 [id number] 15:08:27 16:09:31 Visit Wondiful A Health 350.1.13.10 [place] 4.2.7.2.686 Professio [phone] [address] 2020-10-01 2020-10-01 Office [facility] 1.2.840.114 [id number] Univers 15:08:27 16:09:31 Visit Wondiful A Health 350.1.13.10 ity of [place] 4.2.7.2.686 Raffy as Professio [phone] [address] Office [facility] One 2020-10-01 2020-10-01 Outpatient R IGOR [facility] [id number] Univers 15:00:00 15:00:00 WONDIFUL ity o f [facility] 2020-09-26 2020-09-26 Refleticia [facility] 1.2.840.114 [id number] Univers 00:00:00 00:00:00 Wondiful A Health 350.1.13.10 ity of [place] 4.2.7.2.686 Raffy as Professio [phone] [address] Office [facility] One 2020-09-24 2020-09-24 Refleticia [facility] 1.2.840.114 [id number] Univers 00:00:00 00:00:00 Wondiful A Health 350.1.13.10 ity of [place] 4.2.7.2.686 Raffy as Professio [phone] [address] One 2020-09-11 2020-09-11 Refleticia [facility] 1.2.840.114 [id number] Univers 00:00:00 00:00:00 Wondiful A Health 350.1.13.10 ity of [place] 4.2.7.2.686 Raffy as Professio [phone] [address] One 2020-09-09 2020-09-09 Transition Matthew Gonzalez 1.2.840.114 [id number] Univers 00:00:00 00:00:00 of Care Garcia A Mata 350.1.13.10 ity of [place]2.[place].2.[place] [phone] [address] 2020-09-04 2020-09-07 [facility] Ronnie Murry [facility] 1.2.8 40.114 [id number] Univers 20:58:00 18:15:00 Encounter Melly Giraldo [place] 350.1.13.1 0 ity of [place] Apar[place] 4.2.7.2.686 [facility] [phone] Medical [address] 2020-09-04 2020-09-04 Office [facility] 1.2.585.404 [id number] Univers 16:01:54 17:11:05 Visit Anatoly Chan 350.1.13.10 i ty of [place] 4.2.7.2.[place] [phone] [facility] 220 [facility] 2020-09-04 2020-09-04 Outpatient [facility] [id number] Univers 16:00:00 16:00:00 [facility] 2020-09-04 2020-09-04 Outpatient [facility] [id number] Univers 16:00:00 16:00:00 ANATOLY yue [facility] 2020-09-04 2020-09-04 Orders Doctor VAISHALI 1.2.840.114 [id number] Univers 00:00:00 00:00:00 Only Unassigned, AIDA 350.1.13.10 ity of [place] [facility] 4.2.7.2.686 Raffy as [phone] [address] 2020-08-13 2020-08-13 Patient [facility] 1.2.840.114 [id number] Univers 00:00:00 00:00:00 Outreach [facility] 350.1.13.10 i ty of [facility] 4.2.7.2.[place] [facility] [phone] Dc dical [address] 2020-08-04 2020-08-04 Refill [facility] 1.2.551.864 [id number] Univers 00:00:00 00:00:00 Anatoly Chan 350.1.13.10 i ty of [place] 4.2.7.2.[place] [phone] Dc dical nal 220 [facility] 2020-08-04 2020-08-04 Refleticia [facility] 1.2.840.114 [id number] Univers 00:00:00 00:00:00 Wondiful A Health 350.1.13.10 ity of [place] 4.2.7.2.686 Raffy as Professio [phone] [address] Office Building One 2020-08-03 2020-08-03 Orders Doctor VAISHALI 1.2.840.114 [id number] Univers 00:00:00 00:00:00 Only Unassigned, AIDA 350.1.13.10 [place] of [place] HOSPITAL 4.2.7.2.686 Raffy as [phone] [address] 2020-07-16 2020-07-16 Outpatient Sonya COSTA [facility] [id number] Univers 11:15:00 11:15:00 WONDIFUL ity o f [facility] 2020-06-22 2020-06-22 Amy [facility] 1.2.840.114 [id number] Univers 00:00:00 00:00:00 Wondiful A Health 350.1.13.10 ity of [place] 4.2.7.2.686 Raffy as Professio [phone] [address] Office [facility] One 2020-06-08 2020-06-08 Amy [facility] 1.2.840.114 [id number] Univers 00:00:00 00:00:00 Wondiful A Health 350.1.13.10 ity of [place] 4.2.7.2.686 Raffy as Professio [phone] [address] One 2020-06-05 2020-06-05 Amy [facility] 1.2.840.114 [id number] Univers 00:00:00 00:00:00 Wondiful A Health 350.1.13.10 ity of [place] 4.2.7.2.686 Raffy as Professio [phone] [address] Office [facility] One 2020-05-28 2020-05-28 Outpatient Sonya COSTA [facility] [id number] Univers 15:00:00 15:00:00 WONDIFUL ity o f [facility] 2020-05-19 2020-05-19 Amy [facility] 1.2.840.114 [id number] Univers 00:00:00 00:00:00 Wondiful A Health 350.1.13.10 ity of [place] 4.2.7.2.686 Raffy as Professio [phone] [address] Office [facility] 2020-05-14 2020-05-14 Refill [facility] 1.2.840.114 [id number] Univers 00:00:00 00:00:00 Wondiful A Health 350.1.13.10 ity of [place] 4.2.7.2.686 Raffy as Professio [phone] [address] Office Building [facility] 2020-05-13 2020-05-13 Case [facility] 1.2.840.114 [id number] Univers 00:00:00 00:00:00 Management Wondiful A Health 350.1.13.10 ity of [place] 4.2.7.2.686 Raffy as Professio [phone] [address] Office Building [facility] 2020-05-08 2020-05-08 [facility] 1.2.274.923 [id number] Univers 14:47:36 23:59:00 Encounter Wondiful A [place] 350.1.13.10 ity of [place] 4.2.7.2.686 [place] [phone] [address] 2020-05-08 2020-05-08 Outpatient [facility] [id number] Univers 16:30:00 16:30:00 ANATOLY ity of [facility] 2020-05-08 2020-05-08 Office [facility] 1.2.840.114 [id number] Univers 13:10:21 13:58:56 Visit Wondiful A Health 350.1.13.10 ity of [place] 4.2.7.2.686 Raffy as Professio [phone] [address] Office [facility] 2020-05-08 2020-05-08 Orders Doctor VAISHALI 1.2.840.114 [id number] Univers 00:00:00 00:00:00 Only Unassigned, AIDA 350.1.13.10 [place] of [place] [facility] 4.2.7.2.686 Raffy as [phone] [address] 2020-05-01 2020-05-01 Outpatient R IGOR, [facility] [id number] Univers 10:30:00 10:30:00 WONDIFUL ity o f [facility] 2020-04-17 2020-04-17 Telemedici [facility] 1.2.840.114 [id number] Univers 11:00:00 11:30:00 ne Visit Sisi Chan 350.1.13.10 ity of [place] 4[place]2.7.2.[place] [phone] Dc dical nal 134 [facility] 2020-04-17 2020-04-17 Outpatient R [facility] [id number] Univers 11:00:00 11:00:00 SISI ity of [facility] 2020-04-14 2020-04-14 Refleticia [facility] 1.2.840.114 [id number] Univers 00:00:00 00:00:00 Wondiful A Health 350.1.13.10 ity of [place] 4.2.7.2.686 Raffy as Professio [phone] Dc dical nal 044 [facility] One 2020-04-13 2020-04-13 Amy [facility]INS[facility] 1.2.671.197 [id number] Univers 00:00:00 00:00:00 Anatoly Chan 350.1.13.10 i ty of [place].2.[place] [phone] Dc dical nal 220 [facility] 2020-04-08 2020-04-08 [facility] 1.2.175.602 [id number] [id number] Univers 00:00:00 00:00:00 Sisi Chan [id number] [id number] [phone] Dc dical nal 134 [facility] 2020-04-07 2020-04-07 Case [facility] [id number] [id number] [employer] 00:00:00 00:00:00 Management Sisi Chan [id number] [id number] [phone] [address] 2020-04-03 2020-04-03 Office Ad, [facility] [id number] [id number] Univers 13:15:01 14:30:02 Visit Sisi Chan [id number] [id number] [phone] [address] 2020-04-03 2020-04-03 Outpatient R ADUM, [facility] [id number] Univers 13:30:00 13:30:00 SISI turner [facility] 2020-04-03 2020-04-03 Outpatient R ADUM, [facility] [id number] [employer] 10:30:00 10:30:00 SISI turner [facility] 2020-04-01 2020-04-01 Telephone Serena Garsia [facility] 1..840.114 [id number] Univers 00:00:00 00:00:00 Cam Dustin [id number] i [id number] [phone] [address] 2020-03-20 2020-03-20 [facility] [id number] [id number] Univers 00:00:00 00:00:00 [facility] [id number] ity of [place] [id number] [place] Professio [phone] [address] 2020-03-09 2020-03-09 [facility] 1.2.840.114 [id number] Univers 00:00:00 00:00:00 [facility] [id number] ity of [place] [id number] [place] [phone] [address] 2020-02-17 2020-02-17 Telephone [facility] CENTER 1.2.840.114 [id number] Univers 00:00:00 00:00:00 Wondiful A Health 350.1.13.10 [place]y of [place] 4.2.7.2.686 Raffy as Professio [phone] Dc dical [facility] [address] [facility] 2020-02-17 2020-02-17 Telephone Igor [facility] 1.2.840.114 [id number] Univers 00:00:00 00:00:00 [facility] 350.1.13.10 [place] 4.2.7.2.686 Raffy as Professio [phone] Dc dical nal [address] [facility] 2020-01-13 2020-01-13 [facility] 1.2.840.114 [id number] Univers 00:00:00 00:00:00 [facility] 350.1.13.10 [place] of [place] 4.2.7.2.686 Raffy as Professio [phone] [facility] [address] [facility] 2020-01-11 2020-01-11 Coat Operator Insulator 1, Adc Lab [facility] 1.2.840.114 [id number] Univers 10:55:34 11:10:34 Visit Anatoly Flores 350.1.13.10 [place] [phone] [address] 2020-01-11 2020-01-11 Outpatient R [facility] [id number] Univers 11:00:00 11:00:00 ity of [facility] 2020-01-10 2020-01-10 Office [facility] 1.2.063.731 [id number] Univers 16:40:13 17:43:53 Visit Anatoly Chan 350.1.13.10 i [place].2.[place] [facility] [phone] [facility] 220 [facility] 2020-01-10 2020-01-10 [facility] [id number] Univers 16:30:00 16:30:00 ANATOLY turner of [facility] 2019-12-10 2019-12-10 Orders Doctor TOM 1..840.114 [id number] Univers 00:00:00 00:00:00 Only Unassigned, AIDA 350.1.13.10 [place] [facility] 4.2.7.2.686 Raffy as [phone] [facility] [address] 2019-12-10 2019-12-10 Telephone [facility] 1.2.840.114 [id number] Univers 00:00:00 00:00:00 Anatoly Rodriguez [place] 350.1.13.10 [place] [phone] Dc dical nal 220 [facility] 2019-12-05 2019-12-05 Refill [facility] 1.2.504.293 [id number] Univers 00:00:00 00:00:00 Anatoly Chan 350.1.13.10 i [place] [phone] Dc dical [facility] 220 [facility] 2019-11-06 2019-11-06 [facility] [id number] Univers 15:40:00 15:40:00 LILY ity o f [facility] 2019-11-03 2019-11-03 [facility] 1.2.840.114 [id number] Univers 00:00:00 00:00:00 Wondiful A [facility] 350.1.13.10 ity of [place] 4.2.7.2.686 Raffy as Professio [phone] [facility] [address] One 2019-11-01 2019-11-01 Outpatient [facility] [id number] Univers 11:35:42 23:59:00 ERNST ity of [facility] 2019-11-01 2019-11-01 [facility] 1.2.840.114 [id number] Univers 11:35:00 23:59:00 Encounter Ernstjuancarlos Chan 350.1.13.10 it[place] of [place] [phone] [facility] [address] 2019-11-01 2019-11-01 Orders Doctor TOM 1.2.840.114 [id number] Univers 00:00:00 00:00:00 Only Unassigned, AIDA 350.1.13.10 [place] [facility] 4.2.7.2.686 Raffy as [phone] [address] 2019-10-11 2019-10-11 Office [facility] 1.2.339.918 [id number] Univers 14:59:15 16:12:30 Visit Ernst Chan 350.1.13.10 i ty [place].2.[place] [phone] Dc dical nal 134 [facility] 2019-10-11 2019-10-11 Outpatient [facility] [id number] Univers 15:00:00 15:00:00 ERNST turner [facility] 2019-10-11 2019-10-11 Orders Doctor TOM 1.2.840.114 [id number] Univers 00:00:00 00:00:00 Only Unassigned, AIDA 350.1.13.10 [place] [facility] 4.2.7.2.686 Raffy as [phone] [address] 2019-10-07 2019-10-07 Outpatient R [facility] [id number] Univers 14:00:00 14:00:00 ERNST turner [facility] 2019-09-30 2019-09-30 Refill [facility] 1.2.602.651 [id number] Univers 00:00:00 00:00:00 Anatoly Chan 350.1.13.10 i ty [place].2.[place] [phone] Dc dical nal 220 [facility] 2019-09-20 2019-09-20 Outpatient [facility] [id number] Univers 16:30:00 16:30:00 ANATOLY turner [facility] 2019-09-20 2019-09-20 Telemedici [facility] 1.2.840.114 [id number] Univers 09:52:35 10:22:35 ne Visit Anatoly Chan 350.1.13.10 ity of [place].2.[place] Profess[place] [phone] Dc dical nal 220 [facility] 2019-08-30 2019-08-30 Coat Operator Insulator 2, Adc Lab [facility] 1.2.840.114 [id number] Univers 09:08:00 09:23:00 Visit Gregory Lily Dustin 350.1.13.10 ity of [place].2.[place] [phone] Dc dical nal 353 [facility] 2019-08-30 2019-08-30 Outpatient R GREGORY [facility] [id number] Univers 09:15:00 09:15:00 QIABARBER ity o f [facility] 2019-08-30 2019-08-30 Orders Doctor VAISHALI 1.2.840.114 [id number] Univers 00:00:00 00:00:00 Only Unassigned, AIDA 350.1.13.10 [place] [facility] 4.2.7.2.686 Raffy as [phone] [facility] [address] 2019-08-22 2019-08-22 Outpatient R IGOR [facility] [id number] Univers 14:00:00 14:00:00 WONDIFUL ity o f [facility] 2019-08-22 2019-08-22 Telemedici [facility] 1.2.840.114 [id number] Univers 09:19:01 09:49:01 ne Visit [facility] 350.1.13.10 [place] of [place] 4.2.7.2.686 Raffy as Professio [phone] [facility] [address] 2019-08-22 2019-08-22 Transition Matthew Chávez 1.2.840.114 [id number] Univers 00:00:00 00:00:00 of Care Jessica Mata 350.1.13.10 [place] [phone] [facility] [address] 2019-08-20 2019-08-20 Transition Matthew Chávez 1.2.840.114 [id number] Univers 00:00:00 00:00:00 of Care Jessica Mata 350.1.13.10 [place] [phone] [facility] [address] 2019-08-19 2019-08-19 Telephone Igor [facility] 1.2.840.114 [id number] Univers 00:00:00 00:00:00 [facility] 350.1.13.10 [place] of [place] 4.2.7.2.686 Raffy as Professio [phone] [facility] [address] 2019-08-12 2019-08-16 Inpatient U [facility] [id number] Univers 22:36:00 12:57:00 MOCTEZUMA ity o f [facility] 2019-08-12 2019-08-16 Hospital Juan AntonioDiana 1.2.840.114 [id number] Univers 22:36:00 12:57:00 Encounter Rhianna Parra 350.1.13.10 ity of Hospital 4.2.7.2.686 Raffy as [phone] [facility] [address] 2019-08-16 2019-08-16 Outpatient R [facility] [id number] Univers 10:00:00 10:00:00 ity of [facility] 2019-08-12 2019-08-12 Telephone [facility] 1.2.260.886 [id number] Univers 00:00:00 00:00:00 Lily [place] 350.1.13.10 it[place] of [place].2.[place] [phone] [facility] 059 [facility] 2019-08-09 2019-08-09 Telephone Diana Jenkins 1.2.655.023 [id number] Univers 00:00:00 00:00:00 Qiangjun Aida 350.1.13.10 i ty of Hospital 4.2.7.2.686 Raffy as [phone] [facility] [address] 2019-08-07 2019-08-07 Telephone Diana Jenkins 1.2.945.855 [id number] Univers 00:00:00 00:00:00 Qiangjun Aida 350.1.13.10 i ty of Hospital 4.2.7.2.686 Raff[place] as [phone] [address] 2019-08-05 2019-08-06 Office [facility] 1.2.840.114 [id number] Univers 10:54:42 21:31:12 Visit Lily Chan 350.1.13.10 it[place] of [place].2.[place] [phone] [facility] 059 [facility] 2019-08-05 2019-08-05 [facility] [id number] Univers 11:20:00 11:20:00 LILY turner o f [facility] 2019-08-05 2019-08-05 Orders Doctor VAISHALI 1.2.840.114 [id number] Univers 00:00:00 00:00:00 Only Unassigned, AIDA 350.1.13.10 [place] [facility] 4.2.7.2.686 Raffy as [phone] [address] 2019-02-04 2019-02-04 Office [facility] 1.2.840.114 [id number] Univers 09:40:44 10:41:11 Visit Lily Chan 350.1.13.10 it[place] of [place].2.[place] [phone] [facility] 059 [facility] 2019-02-04 2019-02-04 Orders Doctor VAISHALI 1.2.840.114 [id number] Univers 00:00:00 00:00:00 Only Unassigned, AIDA 350.1.13.10 [place] [facility]OSPITAL 4.2.7.2.686 Raffy as [phone] [address] 2019-01-04 2019-01-04 Office [facility] 1.2.996.714 [id number] Univers 14:30:15 15:51:35 Visit Anatoly Chan 350.1.13.10 i ty [place] 4[place].2.[place] [phone] Dc dical nal 220 [facility] 2019-01-04 2019-01-04 Orders Doctor VAISHALI 1.2.840.114 [id number] Univers 00:00:00 00:00:00 Only Unassigned, AIDA 350.1.13.10 [place] [facility]ITAL 4.2.7.2.686 Raffy as [phone] [address] 2018-12-20 2018-12-20 Orders Doctor VAISHALI 1.2.840.114 [id number] Univers 00:00:00 00:00:00 Only Unassigned, AIDA 350.1.13.10 [place] [facility] 4.2.7.2.686 Raffy as [phone] [address] 2018-12-06 2018-12-06 Orders Doctor VAISHALI 1.2.840.114 [id number] Univers 00:00:00 00:00:00 Only Unassigned, AIDA 350.1.13.10 [place] [facility] 4.2.7.2.686 Raffy as [phone] [address] 2018-06-27 2018-06-27 [facility] [id number] Common 11:57:00 11:57:00 [place] [address] [facility] 2018-06-15 2018-06-15 [facility] [id number] Common 16:24:00 16:24:00 [place] [address] [facility] 2018-06-13 2018-06-13 [facility] [id number] Common 13:30:00 13:30:00 [place] [address] [facility] 2017-12-12 2017-12-12 [facility] [id number] Common 13:22:00 13:22:00 [place] [address] [facility] 2017-11-20 2017-11-20 [facility] [id number] Common 10:30:00 10:30:00 t [place] [address] [facility] 2017-11-02 2017-11-02 [facility] [id number] Common 15:15:00 15:15:00 [place] [address] [facility] Results Test Description Test Time Test Comments Results Result Comments Source POCT GLUCOSE (AUTOMATED) 2022-03-30 21:18:18 Test Item Value Reference Range Interpretation Comme nts POCT GLU (test code = 2625864869) 121 mg/dL 70-110 H Lab Interpretation (test code = 83490-0) Abnormal [facility] GLUCOSE (AUTOMATED)2022-03-30 16:30:55 Test Item Value Reference Range Interpretation Comments POCT GLU (test code = 8465828627) 233 mg/dL 70-110 H Lab Interpretation (test code = Abnormal 47706-1) [facility] GLUCOSE (AUTOMATED)2022-03-30 12:53:10 Test Item Value Reference Range Interpretation Comments POCT GLU (test code = 8403210758) 249 mg/dL 70-110 H Lab Interpretation (test code = Abnormal 69321-2) [facility] GLUCOSE (AUTOMATED)2022-03-30 09:07:14 Test Item Value Reference Range Interpretation Comments POCT GLU (test code = 221 mg/dL 70-110 H Notifi ed Provider [id number]) Lab Interpretation (test Abnormal code = 66612-6) [facility] GLUCOSE (AUTOMATED)2022-03-30 04:50:50 Test Item Value Reference Range Interpretation Comments POCT GLU (test code = 251 mg/dL 70-110 H Notifi ed Provider [id number]) Lab Interpretation (test Abnormal code = 72306-7) [facility] GLUCOSE (AUTOMATED)2022-03-30 01:00:14 Test Item Value Reference Range Interpretation Comments POCT GLU (test code = 242 mg/dL 70-110 H Notifi ed Provider [id number]) Lab Interpretation (test Abnormal code = 76941-3) [facility]20[facility]-30 00:04:32 Test Item Value Reference Range Interpretation Comments PH (test code = 2) 7.35-7.45 PCO2 (test code = See_Comment L [Automate d message] 1617294222) The system [employer] generated this result transmit anthony reference range : 35 - 45 mmHg. The reference range was not used to interpret this result as normal/abnormal . PO2 (test code = See_Comment H [Automated message] 6402210333) The system [employer] generated this result transmit anthony reference range : 80 - 100 mmHg. The reference range was not used to interpret this result as normal/abnormal . HCO3 (test code = See_Comment [Automate d message] 0176375429) The system [employer] generated this result transmit anthony reference range : 22 - 26 mEq/L. The reference range was not used to interpret this result as normal/abnormal . BE (test code = See_Comment [Automated message] 2280061938) The system [employer] generated this result transmit anthony reference range : -3.0 - 3.0 mEq/ L. The reference r chelsie was not used to interpret this result as normal/abnormal . THB (test code = 11.1 g/dL 12.0-16.0 L 4336709450) %O2HB (test code = 98.6 % 94.0-99.0 3192210123) %COHB ART (test code = 0.3 % 0.0-1.5 1122821737) %METHB ART (test code = 0.3 % 0.4-1.5 L 7837316097) VOL%O2 ART (test code = 16.0 % 15.0-23.0 QUES 2253049424) NA (test code = 136 mmol/L 135-145 5278097941) K+ (test code = 4.0 mmol/L 3.5-5.0 6069852755) AC CA IONZ (test code = 4.50 mg/dL 4.50-5.30 2603676231) GLUCOSE (test code = 154 mg/dL 70-110 H 1039484272) Lab Interpretation Abnormal (test code = 27543-6) [facility] GLUCOSE (AUTOMATED)2022-03-29 21:50:44 Test Item Value Reference Range Interpretation Comments POCT GLU (test code = 5439552511) 231 mg/dL 70-110 H Lab Interpretation (test code = Abnormal 26539-9) [facility] WITH [id number] 18:27:53 Test Item Value Reference Range Interpretation Comments [...] as normal/abnormal . HGB (test code = 10.1 g/dL 11.6-15.0 L 718-7) HCT (test code = 29.6 % 35.7-45.2 L 4544-3) MCV (test code = 86.8 fL 80.6-95.5 787-2) MCH (test code = 29.6 pg 25.9-32.8 785-6) MCHC (test code = 34.1 g/dL 31.6-35.1 786-4) RDW-SD (test code = 38.5 fL 39.0-49.9 L 66406-9) RDW-CV (test code = 12.0 % 12.0-15.5 788-0) PLT (test code = See_Comment H [Automated 777-3) message] The sy stem which generated this result transmitted reference range : 166 - 358 10*3/ ?L. The reference r chelsie was not used to interpret this result as normal/abnormal . MPV (test code = 9.7 fL 9.5-12.9 83037-2) NRBC/100 WBC (test See_Comment [Automat ed code = 3464340522) message] The system which generated this result transmitted reference range : 0.0 - 10.0 /100 WBCs. The refer ence range was not u sed to interpret th is result as normal/abnormal . NRBC x10^3 (test code See_Comment [Auto mated = 3304648451) message] The s ystem which generated this result transmitted reference range : 10*3/?L. The reference range was not used to interpret this result as normal/abnormal . GRAN MAT (NEUT) % 70.7 % (test code = 770-8) IMM GRAN % (test code 0.30 % = 7602991954) LYMPH % (test code = 21.1 % 736-9) MONO % (test code = 4.9 % 5905-5) EOS % (test code = 2.6 % 713-8) BASO % (test code = 0.4 % 706-2) GRAN MAT x10^3(ANC) 6.92 10*3/uL 1.88-7.09 (test code = 9136524983) IMM GRAN x10^3 (test 0.03 10*3/uL 0.00-0.06 code = 5682793223) LYMPH x10^3 (test code 2.07 10*3/uL 1.32-3.29 = 731-0) MONO x10^3 (test code 0.48 10*3/uL 0.33-0.92 = 742-7) EOS x10^3 (test code = 0.25 10*3/uL 0.03-0.39 711-2) BASO x10^3 (test code 0.04 10*3/uL 0.01-0.07 = 704-7) Lab Interpretation Abnormal (test code = 96884-0) [facility] WITH [id number] 18:27:53 Test Item Value Reference Range Interpretation Comments WBC (test code = See_Comment [Automated 6690-2) message] The sy stem which generated this result transmitted reference range : 4.30 - 11.10 10*3/?L. The reference range was not used to interpret this result as normal/abnormal . RBC (test code = See_Comment L [Automated 669-8) message] The sy stem which generated this result transmitted reference range : 3.93 - 5.25 10*6/?L. The reference range was not used to interpret this result as normal/abnormal . HGB (test code = 10.1 g/dL 11.6-15.0 L 718-7) HCT (test code = 29.6 % 35.7-45.2 L 4544-3) MCV (test code = 86.8 fL 80.6-95.5 787-2) MCH (test code = 29.6 pg 25.9-32.8 785-6) MCHC (test code = 34.1 g/dL 31.6-35.1 786-4) RDW-SD (test code = 38.5 fL 39.0-49.9 L 60827-6) RDW-CV (test code = 12.0 % 12.0-15.5 788-0) PLT (test code = See_Comment H [Automated 777-3) message] The sy stem which generated this result transmitted reference range : 166 - 358 10*3/ ?L. The reference r chelsie was not used to interpret this result as normal/abnormal . MPV (test code = 9.7 fL 9.5-12.9 11592-5) NRBC/100 WBC (test See_Comment [Automat ed code = 4355412645) message] The system which generated this result transmitted reference range : 0.0 - 10.0 /100 WBCs. The refer ence range was not u sed to interpret th is result as normal/abnormal . NRBC x10^3 (test code See_Comment [Auto mated = 4272318726) message] The s ystem which generated this result transmitted reference range : 10*3/?L. The reference range was not used to interpret this result as normal/abnormal . GRAN MAT (NEUT) % 70.7 % (test code = 770-8) IMM GRAN % (test code 0.30 % = 8004684421) LYMPH % (test code = 21.1 % 736-9) MONO % (test code = 4.9 % 5905-5) EOS % (test code = 2.6 % 713-8) BASO % (test code = 0.4 % 706-2) GRAN MAT x10^3(ANC) 6.92 10*3/uL 1.88-7.09 (test code = 9278556476) IMM GRAN x10^3 (test 0.03 10*3/uL 0.00-0.06 code = 2424381163) LYMPH x10^3 (test code 2.07 10*3/uL 1.32-3.29 = 731-0) MONO x10^3 (test code 0.48 10*3/uL 0.33-0.92 = 742-7) EOS x10^3 (test code = 0.25 10*3/uL 0.03-0.39 711-2) BASO x10^3 (test code 0.04 10*3/uL 0.01-0.07 = 704-7) Lab Interpretation Abnormal (test code = 97318-4) [facility] [id number] 16:47:06 Test Item Value Reference Range Interpretation Comments ABO & RH (test code O POSITIVE Performe d at [facility] = 20) Laboratory [facility] Blood Bank3 [address] [facility] s [address]Ynri Free: [phone] A No. [id number] IAT (test code = Negative Performed a t [facility] 1185) Laboratory [facility] Blood [address] [address]Hgqz Free: [phone] A No. [id number] [facility] - [id number] 16:47:06 Test Item Value Reference Range Interpretation Comments ABO & RH (test code O POSITIVE Performe d at [facility] = 20) Laboratory [facility] Blood [address] s [address]Ffxk Free: [phone] A No. [id number] IAT (test code = Negative Performed a t [facility] 1185) Laboratory [facility] Blood [address] s [address]Caii Free: [phone] A No. [id number] [facility] GLUCOSE (AUTOMATED)2022-03-29 13:09:38 Test Item Value Reference Range Interpretation Comments POCT GLU (test code = 4964684204) 131 mg/dL 70-110 H Lab Interpretation (test code = Abnormal 72886-0) [facility] GLUCOSE (AUTOMATED)2022-03-29 13:09:38 Test Item Value Reference Range Interpretation Comments POCT GLU (test code = 1752751247) 131 mg/dL 70-110 H Lab Interpretation (test code = Abnormal 89557-7) [facility] GLUCOSE (AUTOMATED)2022-03-29 09:20:58 Test Item Value Reference Range Interpretation Comments POCT GLU (test code = 133 mg/dL 70-110 H Notifi ed Provider [id number]) Lab Interpretation (test Abnormal code = 44030-5) [facility] GLUCOSE (AUTOMATED)2022-03-29 09:20:58 Test Item Value Reference Range Interpretation Comments POCT GLU (test code = 133 mg/dL 70-110 H Notifi ed Provider [id number]) Lab Interpretation (test Abnormal code = 15986-9) [facility]22-[facility]-29 05:02:17 Test Item Value Reference Range Interpretation Comments POCT GLU (test code = 212 mg/dL 70-110 H Notifi ed Provider [id number]) Lab Interpretation (test Abnormal code = 08149-1) [facility] 05:02:17 Test Item Value Reference Range Interpretation Comments POCT GLU (test code = 212 mg/dL 70-110 H Notifi ed Provider [id number]) Lab Interpretation (test Abnormal code = 68631-7) [facility]22-03-29 01:28:43 Test Item Value Reference Range Interpretation Comments POCT GLU (test code = 2444636655) 192 mg/dL 70-110 H Lab Interpretation (test code = Abnormal 28956-2) [facility]2022-03-29 01:28:43 Test Item Value Reference Range Interpretation Comments POCT GLU (test code = 0567750043) 192 mg/dL 70-110 H Lab Interpretation (test code = Abnormal 15808-9) [facility]2022-03-28 21:49:45 Test Item Value Reference Range Interpretation Comments POCT GLU (test code = 7107771818) 138 mg/dL 70-110 H Lab Interpretation (test code = Abnormal 09661-4) [facility]28 21:49:45 Test Item Value Reference Range Interpretation Comments POCT GLU (test code = 5426134642) 138 mg/dL 70-110 H Lab Interpretation (test code = Abnormal 05019-3) [facility]2022-03-28 21:49:45 Test Item Value Reference Range Interpretation Comments POCT GLU (test code = 0748527946) 138 mg/dL 70-110 H Lab Interpretation (test code = Abnormal 69468-2) [facility]22-[facility]28 13:04:50 Test Item Value Reference Range Interpretation Comments POCT GLU (test code = 0283466578) 142 mg/dL 70-110 H Lab Interpretation (test code = Abnormal 44269-5) [facility] GLUCOSE (AUTOMATED)2022-03-28 13:04:50 Test Item Value Reference Range Interpretation Comments POCT GLU (test code = 9942477867) 142 mg/dL 70-110 H Lab Interpretation (test code = Abnormal 19463-2) [facility] GLUCOSE (AUTOMATED)2022-03-28 13:04:50 Test Item Value Reference Range Interpretation Comments POCT GLU (test code = 6303165424) 142 mg/dL 70-110 H Lab Interpretation (test code = Abnormal 22134-0) [facility] GLUCOSE (AUTOMATED)2022-03-28 13:04:50 Test Item Value Reference Range Interpretation Comments POCT GLU (test code = 5138053446) 142 mg/dL 70-110 H Lab Interpretation (test code = Abnormal 31097-3) [facility] GLUCOSE (AUTOMATED)2022-03-28 09:24:11 Test Item Value Reference Range Interpretation Comments POCT GLU (test code = 118 mg/dL 70-110 H Notifi ed Provider [id number]) Lab Interpretation (test Abnormal code = 30748-2) [facility] GLUCOSE (AUTOMATED)2022-03-28 09:24:11 Test Item Value Reference Range Interpretation Comments POCT GLU (test code = 118 mg/dL 70-110 H Notifi ed Provider [id number]) Lab Interpretation (test Abnormal code = 34703-6) [facility] GLUCOSE (AUTOMATED)2022-03-28 09:24:11 Test Item Value Reference Range Interpretation Comments POCT GLU (test code = 118 mg/dL 70-110 H Notifi ed Provider [id number]) Lab Interpretation (test Abnormal code = 36543-8) [facility] GLUCOSE (AUTOMATED)2022-03-28 05:23:36 Test Item Value Reference Range Interpretation Comments POCT GLU (test code = 3368356488) 95 mg/dL 70-110 Lab Interpretation (test code = Normal 70032-5) [facility] GLUCOSE (AUTOMATED)2022-03-28 05:23:36 Test Item Value Reference Range Interpretation Comments POCT GLU (test code = 7662600509) 95 mg/dL 70-110 Lab Interpretation (test code = Normal 16879-8) [facility] GLUCOSE (AUTOMATED)2022-03-28 05:23:36 Test Item Value Reference Range Interpretation Comments POCT GLU (test code = 4105249670) 95 mg/dL 70-110 Lab Interpretation (test code = Normal 86646-2) [facility] GLUCOSE (AUTOMATED)2022-03-28 04:46:42 Test Item Value Reference Range Interpretation Comments POCT GLU (test code = 68 mg/dL 70-110 L Notifi ed Provider [id number]) Lab Interpretation (test Abnormal code = 52713-3) [facility] GLUCOSE (AUTOMATED)2022-03-28 04:46:42 Test Item Value Reference Range Interpretation Comments POCT GLU (test code = 68 mg/dL 70-110 L Notifi ed Provider [id number]) Lab Interpretation (test Abnormal code = 94809-2) [facility] GLUCOSE (AUTOMATED)2022-03-28 04:46:42 Test Item Value Reference Range Interpretation Comments POCT GLU (test code = 68 mg/dL 70-110 L Notifi ed Provider [id number]) Lab Interpretation (test Abnormal code = 87581-3) [facility] GLUCOSE (AUTOMATED)2022-03-28 01:30:55 Test Item Value Reference Range Interpretation Comments POCT GLU (test code = 120 mg/dL 70-110 H Notifi ed Provider [id number]) Lab Interpretation (test Abnormal code = 07667-9) [facility] GLUCOSE (AUTOMATED)2022-03-28 01:30:55 Test Item Value Reference Range Interpretation Comments POCT GLU (test code = 120 mg/dL 70-110 H Notifi ed Provider [id number]) Lab Interpretation (test Abnormal code = 66617-3) [facility] GLUCOSE (AUTOMATED)2022-03-28 01:30:55 Test Item Value Reference Range Interpretation Comments POCT GLU (test code = 120 mg/dL 70-110 H Notifi ed Provider [id number]) Lab Interpretation (test Abnormal code = 59325-2) [facility] GLUCOSE (AUTOMATED)2022-03-27 20:44:54 Test Item Value Reference Range Interpretation Comments POCT GLU (test code = 1627314566) 211 mg/dL 70-110 H Lab Interpretation (test code = Abnormal 95560-2) [facility] GLUCOSE (AUTOMATED)2022-03-27 20:44:54 Test Item Value Reference Range Interpretation Comments POCT GLU (test code = 2124498707) 211 mg/dL 70-110 H Lab Interpretation (test code = Abnormal 25446-4) [facility] GLUCOSE (AUTOMATED)2022-03-27 20:44:54 Test Item Value Reference Range Interpretation Comments POCT GLU (test code = 3483621180) 211 mg/dL 70-110 H Lab Interpretation (test code = Abnormal 33847-7) [facility] GLUCOSE (AUTOMATED)2022-03-27 17:36:50 Test Item Value Reference Range Interpretation Comments POCT GLU (test code = 6579397009) 251 mg/dL 70-110 H Lab Interpretation (test code = Abnormal 26425-6) [facility] GLUCOSE (AUTOMATED)2022-03-27 17:36:50 Test Item Value Reference Range Interpretation Comments POCT GLU (test code = 9913514886) 251 mg/dL 70-110 H Lab Interpretation (test code = Abnormal 50952-9) [facility] GLUCOSE (AUTOMATED)2022-03-27 17:36:50 Test Item Value Reference Range Interpretation Comments POCT GLU (test code = 0770493037) 251 mg/dL 70-110 H Lab Interpretation (test code = Abnormal 01426-3) [facility] GLUCOSE (AUTOMATED)2022-03-27 12:36:13 Test Item Value Reference Range Interpretation Comments POCT GLU (test code = 5422201262) 230 mg/dL 70-110 H Lab Interpretation (test code = Abnormal 89190-2[facility]13 Test Item Value Reference Range Interpretation Comments POCT GLU (test code = 6534141117) 230 mg/dL 70-110 H Lab Interpretation (test code = Abnormal 11647-4) [facility] 12:36:13 Test Item Value Reference Range Interpretation Comments POCT GLU (test code = 2672970719) 230 mg/dL 70-110 H Lab Interpretation (test code = Abnormal 39326-1) [facility] GLUCOSE (AUTOMATED)2022-03-27 09:18:37 Test Item Value Reference Range Interpretation Comments POCT GLU (test code = 8286505211) 256 mg/dL 70-110 H Lab Interpretation (test code = Abnormal 54890-4) [facility] GLUCOSE (AUTOMATED)2022-03-27 09:18:37 Test Item Value Reference Range Interpretation Comments POCT GLU (test code = 4557478769) 256 mg/dL 70-110 H Lab Interpretation (test code = Abnormal 96974-0) [facility] GLUCOSE (AUTOMATED)2022-03-27 09:18:37 Test Item Value Reference Range Interpretation Comments POCT GLU (test code = 4643983982) 256 mg/dL 70-110 H Lab Interpretation (test code = Abnormal 23311-5) [facility] GLUCOSE (AUTOMATED)2022-03-27 05:12:31 Test Item Value Reference Range Interpretation Comments POCT GLU (test code = 2656152234) 219 mg/dL 70-110 H Lab Interpretation (test code = Abnormal 60901-7) [facility] GLUCOSE (AUTOMATED)2022-03-27 05:12:31 Test Item Value Reference Range Interpretation Comments POCT GLU (test code = 7597423469) 219 mg/dL 70-110 H Lab Interpretation (test code = Abnormal 70420-7) [facility] GLUCOSE (AUTOMATED)2022-03-27 05:12:31 Test Item Value Reference Range Interpretation Comments POCT GLU (test code = 4713590117) 219 mg/dL 70-110 H Lab Interpretation (test code = Abnormal 82630-3) [facility] GLUCOSE (AUTOMATED)2022-03-27 01:06:19 Test Item Value Reference Range Interpretation Comments POCT GLU (test code = 4223045478) 119 mg/dL 70-110 H Lab Interpretation (test code = Abnormal 29752-8) [facility] GLUCOSE (AUTOMATED)2022-03-27 01:06:19 Test Item Value Reference Range Interpretation Comments POCT GLU (test code = 1370395917) 119 mg/dL 70-110 H Lab Interpretation (test code = Abnormal 78920-8) [facility] GLUCOSE (AUTOMATED)2022-03-27 01:06:19 Test Item Value Reference Range Interpretation Comments POCT GLU (test code = 1674194237) 119 mg/dL 70-110 H Lab Interpretation (test code = Abnormal 10358-5) [facility] - [facility] [id number] 23:05:59 Test Item Value Reference Range Interpretation Comments ABO & RH (test code O POSITIVE Performe d at [facility] = 20) Laboratory [facility] Blood [address] [address]Bgnz Free: [phone] A No. [id number] IAT (test code = Negative Performed a t [facility] 1185) Laboratory [facility] Blood [address] [address]Wosw Free: [phone] A No. [id number] [facility] - ONCE [id number] 23:05:59 Test Item Value Reference Range Interpretation Comments ABO & RH (test code O POSITIVE Performe d at [facility] = 20) Laboratory [facility] Blood [address] [address]Bbya Free: [phone] A No. [id number] IAT (test code = Negative Performed a t [facility] 1185) Laboratory [facility] Blood [address] [place] [address]Nclz Free: [phone] A No. [id number] [facility] - ONCE [id number] 23:05:59 Test Item Value Reference Range Interpretation Comments ABO & RH (test code O POSITIVE Performe d at [facility] = 20) Laboratory [facility] Blood [address] [place] [address]Lezl Free: [phone] A No. [id number] IAT (test code = Negative Performed a t [facility] 1185) Laboratory [facility] Blood [address] [address]Pimm Free: [phone] A No. [id number] [facility] - ONCE [id number] 23:05:59 Test Item Value Reference Range Interpretation Comments ABO & RH (test code O POSITIVE Performe d at [facility] = 20) Laboratory [facility] [address] [facility] s [address]Roft Free: [phone] A No. [id number] IAT (test code = Negative Performed a t [facility] 1185) Laboratory [facility] [address]Rvoq Free: [phone] A No. [id number] [facility] GLUCOSE (AUTOMATED)2022-03-26 21:43:29 Test Item Value Reference Range Interpretation Comments POCT GLU (test code = 0338268488) 85 mg/dL 70-110 Lab Interpretation (test code = Normal 27510-5) [facility] GLUCOSE (AUTOMATED)2022-03-26 21:43:29 Test Item Value Reference Range Interpretation Comments POCT GLU (test code = 3097606676) 85 mg/dL 70-110 Lab Interpretation (test code = Normal 63336-8) [facility] GLUCOSE (AUTOMATED)2022-03-26 21:43:29 Test Item Value Reference Range Interpretation Comments POCT GLU (test code = 2144319336) 85 mg/dL 70-110 Lab Interpretation (test code = Normal 63067-3) [facility] GLUCOSE (AUTOMATED)2022-03-26 17:35:24 Test Item Value Reference Range Interpretation Comments POCT GLU (test code = 9618421475) 165 mg/dL 70-110 H Lab Interpretation (test code = Abnormal 78331-9) [facility] GLUCOSE (AUTOMATED)2022-03-26 17:35:24 Test Item Value Reference Range Interpretation Comments POCT GLU (test code = 5929280620) 165 mg/dL 70-110 H Lab Interpretation (test code = Abnormal 95279-5) [facility] GLUCOSE (AUTOMATED)2022-03-26 17:35:24 Test Item Value Reference Range Interpretation Comments POCT GLU (test code = 0425348597) 165 mg/dL 70-110 H Lab Interpretation (test code = Abnormal 27145-6) [facility] GLUCOSE (AUTOMATED)2022-03-26 12:29:43 Test Item Value Reference Range Interpretation Comments POCT GLU (test code = 3733674568) 144 mg/dL 70-110 H Lab Interpretation (test code = Abnormal 31210-4) [facility] GLUCOSE (AUTOMATED)2022-03-26 12:29:43 Test Item Value Reference Range Interpretation Comments POCT GLU (test code = 2988464132) 144 mg/dL 70-110 H Lab Interpretation (test code = Abnormal 92905-5) [facility] GLUCOSE (AUTOMATED)2022-03-26 12:29:43 Test Item Value Reference Range Interpretation Comments POCT GLU (test code = 7327503940) 144 mg/dL 70-110 H Lab Interpretation (test code = Abnormal 07366-4) [facility] GLUCOSE (AUTOMATED)2022-03-26 09:32:36 Test Item Value Reference Range Interpretation Comments POCT GLU (test code = 4432410149) 122 mg/dL 70-110 H Lab Interpretation (test code = Abnormal 52792-5) [facility] GLUCOSE (AUTOMATED)2022-03-26 09:32:36 Test Item Value Reference Range Interpretation Comments POCT GLU (test code = 5003694996) 122 mg/dL 70-110 H Lab Interpretation (test code = Abnormal 18321-7) [facility] GLUCOSE (AUTOMATED)2022-03-26 09:32:36 Test Item Value Reference Range Interpretation Comments POCT GLU (test code = 8691394529) 122 mg/dL 70-110 H Lab Interpretation (test code = Abnormal 86279-9) [facility] GLUCOSE (AUTOMATED)2022-03-26 05:04:28 Test Item Value Reference Range Interpretation Comments POCT GLU (test code = 8578290535) 152 mg/dL 70-110 H Lab Interpretation (test code = Abnormal 70899-2) [facility] GLUCOSE (AUTOMATED)2022-03-26 05:04:28 Test Item Value Reference Range Interpretation Comments POCT GLU (test code = 4365222353) 152 mg/dL 70-110 H Lab Interpretation (test code = Abnormal 67847-1) [facility] GLUCOSE (AUTOMATED)2022-03-26 05:04:28 Test Item Value Reference Range Interpretation Comments POCT GLU (test code = 1722260695) 152 mg/dL 70-110 H Lab Interpretation (test code = Abnormal 88510-5) [facility] 01:24:58 Test Item Value Reference Range Interpretation Comments POCT GLU (test code = 1906009279) 249 mg/dL 70-110 H Lab Interpretation (test code = Abnormal 12351-9) [facility] GLUCOSE (AUTOMATED)2022-03-26 01:24:58 Test Item Value Reference Range Interpretation Comments POCT GLU (test code = 8382765414) 249 mg/dL 70-110 H Lab Interpretation (test code = Abnormal 36532-8) [facility] GLUCOSE (AUTOMATED)2022-03-26 01:24:58 Test Item Value Reference Range Interpretation Comments POCT GLU (test code = 3836341672) 249 mg/dL 70-110 H Lab Interpretation (test code = Abnormal 42665-5) [facility] GLUCOSE (AUTOMATED)2022-03-25 21:13:04 Test Item Value Reference Range Interpretation Comments POCT GLU (test code = 0270359236) 155 mg/dL 70-110 H Lab Interpretation (test code = Abnormal 11862-6) [facility] GLUCOSE (AUTOMATED)2022-03-25 21:13:04 Test Item Value Reference Range Interpretation Comments POCT GLU (test code = 4613453084) 155 mg/dL 70-110 H Lab Interpretation (test code = Abnormal 63866-1) [facility] GLUCOSE (AUTOMATED)2022-03-25 21:13:04 Test Item Value Reference Range Interpretation Comments POCT GLU (test code = 9168064671) 155 mg/dL 70-110 H Lab Interpretation (test code = Abnormal 63084-2) [facility] 18:05:28 Test Item Value Reference Range Interpretation Comments POCT GLU (test code = 5924771929) 182 mg/dL 70-110 H Lab Interpretation (test code = Abnormal 23451-3) [facility] GLUCOSE (AUTOMATED)2022-03-25 18:05:28 Test Item Value Reference Range Interpretation Comments POCT GLU (test code = 5327279322) 182 mg/dL 70-110 H Lab Interpretation (test code = Abnormal 07365-8) [facility] GLUCOSE (AUTOMATED)2022-03-25 18:05:28 Test Item Value Reference Range Interpretation Comments POCT GLU (test code = 8516645453) 182 mg/dL 70-110 H Lab Interpretation (test code = Abnormal 47454-2) [facility] GLUCOSE (AUTOMATED)2022-03-25 14:27:58 Test Item Value Reference Range Interpretation Comments POCT GLU (test code = 191 mg/dL 70-110 H Notifi ed Provider [id number]) Lab Interpretation (test Abnormal code = 25323-7) [facility] GLUCOSE (AUTOMATED)2022-03-25 14:27:58 Test Item Value Reference Range Interpretation Comments POCT GLU (test code = 191 mg/dL 70-110 H Notifi ed Provider [id number]) Lab Interpretation (test Abnormal code = 18188-0) [facility] GLUCOSE (AUTOMATED)2022-03-25 14:27:58 Test Item Value Reference Range Interpretation Comments POCT GLU (test code = 191 mg/dL 70-110 H Notifi ed Provider [id number]) Lab Interpretation (test Abnormal code = 85273-8) [facility] GLUCOSE (AUTOMATED)2022-03-25 09:04:51 Test Item Value Reference Range Interpretation Comments POCT GLU (test code = 0286862135) 157 mg/dL 70-110 H Lab Interpretation (test code = Abnormal 54262-9) [facility] GLUCOSE (AUTOMATED)2022-03-25 09:04:51 Test Item Value Reference Range Interpretation Comments POCT GLU (test code = 5720237552) 157 mg/dL 70-110 H Lab Interpretation (test code = Abnormal 06975-7) [facility] GLUCOSE (AUTOMATED)2022-03-25 09:04:51 Test Item Value Reference Range Interpretation Comments POCT GLU (test code = 5238468721) 157 mg/dL 70-110 H Lab Interpretation (test code = Abnormal 26109-4) [facility] GLUCOSE (AUTOMATED)2022-03-25 04:17:28 Test Item Value Reference Range Interpretation Comments POCT GLU (test code = 0189356079) 179 mg/dL 70-110 H Lab Interpretation (test code = Abnormal 71507-0) [facility] GLUCOSE (AUTOMATED)2022-03-25 04:17:28 Test Item Value Reference Range Interpretation Comments POCT GLU (test code = 9023080062) 179 mg/dL 70-110 H Lab Interpretation (test code = Abnormal 73354-7) [facility] GLUCOSE (AUTOMATED)2022-03-25 04:17:28 Test Item Value Reference Range Interpretation Comments POCT GLU (test code = 7124372423) 179 mg/dL 70-110 H Lab Interpretation (test code = Abnormal 34042-3) [facility] GLUCOSE (AUTOMATED)2022-03-25 01:34:30 Test Item Value Reference Range Interpretation Comments POCT GLU (test code = 8663448053) 227 mg/dL 70-110 H Lab Interpretation (test code = Abnormal 21793-9) [facility] GLUCOSE (AUTOMATED)2022-03-25 01:34:30 Test Item Value Reference Range Interpretation Comments POCT GLU (test code = 9294475002) 227 mg/dL 70-110 H Lab Interpretation (test code = Abnormal 98109-8) [facility] GLUCOSE (AUTOMATED)2022-03-25 01:34:30 Test Item Value Reference Range Interpretation Comments POCT GLU (test code = 2912147918) 227 mg/dL 70-110 H Lab Interpretation (test code = Abnormal 42318-4) [facility] GLUCOSE (AUTOMATED)2022-03-25 01:34:25 Test Item Value Reference Range Interpretation Comments POCT GLU (test code = 0844073050) 174 mg/dL 70-110 H Lab Interpretation (test code = Abnormal 10421-4) [facility] GLUCOSE (AUTOMATED)2022-03-25 01:34:25 Test Item Value Reference Range Interpretation Comments POCT GLU (test code = 8963995705) 174 mg/dL 70-110 H Lab Interpretation (test code = Abnormal 66933-6) [facility] GLUCOSE (AUTOMATED)2022-03-25 01:34:25 Test Item Value Reference Range Interpretation Comments POCT GLU (test code = 1665534785) 174 mg/dL 70-110 H Lab Interpretation (test code = Abnormal 81532-7) [facility] GLUCOSE (AUTOMATED)2022-03-24 23:02:31 Test Item Value Reference Range Interpretation Comments POCT GLU (test code = 8549708034) 112 mg/dL 70-110 H Lab Interpretation (test code = Abnormal 73105-1) [facility] GLUCOSE (AUTOMATED)2022-03-24 23:02:31 Test Item Value Reference Range Interpretation Comments POCT GLU (test code = 5029420465) 112 mg/dL 70-110 H Lab Interpretation (test code = Abnormal 12261-8) [facility] GLUCOSE (AUTOMATED)2022-03-24 23:02:31 Test Item Value Reference Range Interpretation Comments POCT GLU (test code = 7616434734) 112 mg/dL 70-110 H Lab Interpretation (test code = Abnormal 96614-2) [facility] GLUCOSE (AUTOMATED)2022-03-24 22:01:20 Test Item Value Reference Range Interpretation Comments POCT GLU (test code = 5081381557) 67 mg/dL 70-110 L Lab Interpretation (test code = Abnormal 23522-5) [facility] GLUCOSE (AUTOMATED)2022-03-24 22:01:20 Test Item Value Reference Range Interpretation Comments POCT GLU (test code = 9142460205) 67 mg/dL 70-110 L Lab Interpretation (test code = Abnormal 40724-4) [facility] GLUCOSE (AUTOMATED)2022-03-24 22:01:20 Test Item Value Reference Range Interpretation Comments POCT GLU (test code = 8012945411) 67 mg/dL 70-110 L Lab Interpretation (test code = Abnormal 67511-3) [facility] 21:29:38 Test Item Value Reference Range Interpretation Comments Height (test code = in 8546326803) Weight (test code = lbs 8653410441) Systolic BP (test code = mmHg 1174614686) Diastolic BP (test code mmHg = 9804589320) Heart Rate (test code = bpm 6559839033) BSA (test code = 1.56 m2 9054493295) LVOT diameter (test code 2.11 cm = 5011016377) LVOT area (test code = 3.50 cm2 0262342054) Ao root diam (test code 3.20 cm = 3243464581) Aortic root (test code = 3.2 cm 4100657551) Ao root annulus (test 3.2 cm code = 8494137680) LA size (test code = 2.8 cm 1882500849) MV Peak E Sweetie (test code 65.6 cm/s = 4404616734) MV Peak A Sweetie (test code 68.1 cm/s = 7441167335) E/A ratio (test code = ratio 9658200280) E wave decelartion time 0.13 s (test code = 3067051340) MR max PG (test code = 39.00 mm[Hg] 3871610740) MR max sweetie (test code = 312.40 cm/s 3556569375) Mr max sweetie (test code = 312.4 m/s 3869924103) MV Prop V (test code = 23.50 cm/s 3286376686) LAV(MOD-sp4) (test code 34.40 mL = 1250625740) Tapse (test code = 0.91 cm 4366240498) LVOT stroke volume (test 41.30 cm3 code = 0798747400) LVOT peak sweetie (test code 63.8 cm/s = 1283347525) LVOT mn grad (test code mmHg = 5426546373) AV LVOT peak gradient mmHg (test code = 7799371912) LVOT peak VTI (test code 11.8 cm = 0397786724) LV V1 mean (test code = 41.80 cm/s 6544863945) Ao peak sweetie (test code = 123.8 cm/s 0838633593) AV area peak sweetie (test 1.8 cm2 code = 9481763536) Ao max PG (test code = 6.10 mm[Hg] 5996129822) AV peak gradient (test mmHg code = 1773302140) LA Volume Index (BP) 20.7 mL/m2 (test code = 2327429607) LA volume (BP) (test 32.3 mL code = 4026873057) LAV(MOD-sp2) (test code 23.20 mL = 1283736982) LVIDD (test code = 4.90 cm 2541320635) Left Ventricular End 113.2 mL Diastolic Volume by Teichholz Method (test code = 7548649) IVS (test code = 0.91 cm 8436230285) Interventricular Septum 0.91 cm Diastolic Thickness by 2D (test code = 3818610) LVPWD (test code = 0.85 cm 6096519191) PW (test code = 0.85 cm 0.6-1.6 0622504981) EF(Teich) (test code = 44.80 % 1849075088) LVIDS (test code = 3.80 cm 4844816028) Left Ventricular End 62.5 mL Systolic Volume by Teichholz Method (test code = 2466925) FS (test code = 22 % 3662922814) EF - 2D (test code = 44.80 % 42961530) A4C EF (test code = 44.60 % 8424337012) EF(sp4-el) (test code = 44.90 % 5680174770) SV(MOD-sp4) (test code = 39.30 mL 7290171631) SV(sp4-el) (test code = 40.20 mL 2213769714) LV Diastolic Volume (BP) 81.7 mL (test code = 5644302557) A2C EF (test code = 30.20 % 2928190724) EF(MOD-bp) (test code = 35.70 % 6209919105) EF(sp2-el) (test code = 28.70 % 3599136731) LV Systolic Volume (BP) 52.6 mL (test code = 3758360004) SV(MOD-bp) (test code = 29.10 mL 0874999005) SV(MOD-sp2) (test code = 23.00 mL 4147114275) EF (test code = 2925796142) Left Ventricular Stroke 29.1 mL Volume by 2-D Biplane-MOD (test code = 7125757) LV Diastolic Volume 52.4 mL/m2 Index (BP) (test code = 7179164386) LV Systolic Volume Index 33.7 mL/m2 (BP) (test code = 9425659953) Radiology Study observation (narrative) (test code = 26903-6) ADD (test code = ADD) Addendum by Peggy Capps MD on 03/24/2022 4:30 PM CDT ?Left?Ventricle: Left ventricle size is normal. Normal wall thickness. Septal motion is consistent with post-operative status. . Moderate global hypokinesis present. Moderately reduced systolic function with a visually estimated EF of 35 - 40%. EF by 2D Cunningham biplane is 36%. There is grade 1 diastolic dysfunction and impaired relaxation. Normal left ventricular filling pressure. ?Right?Ventricle: Right ventricle size is normal. Normal systolic function. ?IVC/SVC: IVC diameter is less than or equal to 21 mm and decreases greater than 50% during inspiration; therefore the estimated right atrial pressure is normal (~0-5 mmHg). ?Tricuspid?Valve: Trace transvalvular regurgitation. Insufficient regurgant jet to estimate RVSP. ?Left?Atrium: Left atrium size is normal. Left atrium volume index is 20.7 mL/m2. Matt Bowlingwal, MDLeft VentricleLeft ventricle size is normal. Normal wall thickness. Septal motion is consistent with post-operative status. . Moderate global hypokinesis present. Moderately reduced systolic function with a visually estimated EF of 35 - 40%. EF by 2D Cunningham biplane is 36%. There is grade 1 diastolic dysfunction and impaired relaxation. Normal left ventricular filling pressure.Right VentricleRight ventricle size is normal. Normal systolic function.Left AtriumLeft atrium size is normal. Left atrium volume index is 20.7 mL/m2.Right AtriumRight atrium size is normal.IVC/SVCIVC diameter is less than or equal to 21 mm and decreases greater than 50% during inspiration; therefore the estimated right atrial pressure is normal (~0-5 mmHg).Mitral ValveMitral valve structure is normal. Trace transvalvular regurgitation.Tricusp id ValveTricuspid valve structure is normal. Trace transvalvular regurgitation. Insufficient regurgant jet to estimate RVSP.Aortic ValveAortic valve structure is normal.Pulmonic ValveNot well visualized.Ascending AortaNormal sized sinus of Valsalva.PericardiumT he pericardium is normal.Study DetailsStudy quality experienced technical difficulty. A complete echocardiogram was performed using 2D, color flow Doppler and spectral Doppler. 5 mL of Lumason ultrasound enhancing agent used. [facility] 21:29:38 Test Item Value Reference Range Interpretation Comments Height (test code = in 9632883889) Weight (test code = lbs 7186552352) Systolic BP (test code = mmHg 0870395450) Diastolic BP (test code mmHg = 0322221939) Heart Rate (test code = bpm 9486128776) BSA (test code = 1.56 m2 4634775310) LVOT diameter (test code 2.11 cm = 0285266099) LVOT area (test code = 3.50 cm2 5029961806) Ao root diam (test code 3.20 cm = 9764871708) Aortic root (test code = 3.2 cm 1487045639) Ao root annulus (test 3.2 cm code = 7962043047) LA size (test code = 2.8 cm 4843965671) MV Peak E Sweetie (test code 65.6 cm/s = 3554403715) MV Peak A Sweetie (test code 68.1 cm/s = 6466585121) E/A ratio (test code = ratio 2774437781) E wave decelartion time 0.13 s (test code = 0050050628) MR max PG (test code = 39.00 mm[Hg] 9705961985) MR max sweetie (test code = 312.40 cm/s 9828012987) Mr max sweetie (test code = 312.4 m/s 1653497083) MV Prop V (test code = 23.50 cm/s 9973534118) LAV(MOD-sp4) (test code 34.40 mL = 7406708220) Tapse (test code = 0.91 cm 4353147400) LVOT stroke volume (test 41.30 cm3 code = 3480252902) LVOT peak sweetie (test code 63.8 cm/s = 0092493348) LVOT mn grad (test code mmHg = 3022544053) AV LVOT peak gradient mmHg (test code = 0721569011) LVOT peak VTI (test code 11.8 cm = 3460548642) LV V1 mean (test code = 41.80 cm/s 3232614676) Ao peak sweetie (test code = 123.8 cm/s 8904213047) AV area peak sweetie (test 1.8 cm2 code = 8226048190) Ao max PG (test code = 6.10 mm[Hg] 8295980133) AV peak gradient (test mmHg code = 8872782502) LA Volume Index (BP) 20.7 mL/m2 (test code = 2679606815) LA volume (BP) (test 32.3 mL code = 0478385346) LAV(MOD-sp2) (test code 23.20 mL = 4300631349) LVIDD (test code = 4.90 cm 1182486853) Left Ventricular End 113.2 mL Diastolic Volume by Teichholz Method (test code = 3166302) IVS (test code = 0.91 cm 9655879910) Interventricular Septum 0.91 cm Diastolic Thickness by 2D (test code = 0272467) LVPWD (test code = 0.85 cm 7336746643) PW (test code = 0.85 cm 0.6-1.3 9423045212) EF(Teich) (test code = 44.80 % 7150820324) LVIDS (test code = 3.80 cm 3185487764) Left Ventricular End 62.5 mL Systolic Volume by Teichholz Method (test code = 0904664) FS (test code = 22 % 4402995709) EF - 2D (test code = 44.80 % 73138849) A4C EF (test code = 44.60 % 1718225948) EF(sp4-el) (test code = 44.90 % 1752826072) SV(MOD-sp4) (test code = 39.30 mL 8394638340) SV(sp4-el) (test code = 40.20 mL 7234965175) LV Diastolic Volume (BP) 81.7 mL (test code = 7789165332) A2C EF (test code = 30.20 % 0988683652) EF(MOD-bp) (test code = 35.70 % 4421695928) EF(sp2-el) (test code = 28.70 % 1930586626) LV Systolic Volume (BP) 52.6 mL (test code = 8849608830) SV(MOD-bp) (test code = 29.10 mL 3014202002) SV(MOD-sp2) (test code = 23.00 mL 1600833369) EF (test code = 4023255923) Left Ventricular Stroke 29.1 mL Volume by 2-D Biplane-MOD (test code = 2288924) LV Diastolic Volume 52.4 mL/m2 Index (BP) (test code = 1879048547) LV Systolic Volume Index 33.7 mL/m2 (BP) (test code = 5308407490) Radiology Study observation (narrative) (test code = 35767-3) ADD (test code = ADD) Addendum by Peggy Capps MD on 03/24/2022 4:30 PM CDT ?Left?Ventricle: Left ventricle size is normal. Normal wall thickness. Septal motion is consistent with post-operative status. . Moderate global hypokinesis present. Moderately reduced systolic function with a visually estimated EF of 35 - 40%. EF by 2D Cunningham biplane is 36%. There is grade 1 diastolic dysfunction and impaired relaxation. Normal left ventricular filling pressure. ?Right?Ventricle: Right ventricle size is normal. Normal systolic function. ?IVC/SVC: IVC diameter is less than or equal to 21 mm and decreases greater than 50% during inspiration; therefore the estimated right atrial pressure is normal (~0-5 mmHg). ?Tricuspid?Valve: Trace transvalvular regurgitation. Insufficient regurgant jet to estimate RVSP. ?Left?Atrium: Left atrium size is normal. Left atrium volume index is 20.7 mL/m2. Matt Bal MDLeft VentricleLeft ventricle size is normal. Normal wall thickness. Septal motion is consistent with post-operative status. . Moderate global hypokinesis present. Moderately reduced systolic function with a visually estimated EF of 35 - 40%. EF by 2D Cunningham biplane is 36%. There is grade 1 diastolic dysfunction and impaired relaxation. Normal left ventricular filling pressure.Right VentricleRight ventricle size is normal. Normal systolic function.Left AtriumLeft atrium size is normal. Left atrium volume index is 20.7 mL/m2.Right AtriumRight atrium size is normal.IVC/SVCIVC diameter is less than or equal to 21 mm and decreases greater than 50% during inspiration; therefore the estimated right atrial pressure is normal (~0-5 mmHg).Mitral ValveMitral valve structure is normal. Trace transvalvular regurgitation.Tricusp id ValveTricuspid valve structure is normal. Trace transvalvular regurgitation. Insufficient regurgant jet to estimate RVSP.Aortic ValveAortic valve structure is normal.Pulmonic ValveNot well visualized.Ascending AortaNormal sized sinus of Valsalva.PericardiumT he pericardium is normal.Study DetailsStudy quality experienced technical difficulty. A complete echocardiogram was performed using 2D, color flow Doppler and spectral Doppler. 5 mL of Lumason ultrasound enhancing agent used. [facility]29[facility]38 Test Item Value Reference Range Interpretation Comments Height (test code = in 8501648909) Weight (test code = lbs 9790022085) Systolic BP (test code = mmHg 0789047990) Diastolic BP (test code mmHg = 3707979591) Heart Rate (test code = bpm 5680885642) BSA (test code = 1.56 m2 0613800155) LVOT diameter (test code 2.11 cm = 4034935962) LVOT area (test code = 3.50 cm2 4051284702) Ao root diam (test code 3.20 cm = 9914214977) Aortic root (test code = 3.2 cm 3438901607) Ao root annulus (test 3.2 cm code = 2952176300) LA size (test code = 2.8 cm 8121400144) MV Peak E Sweetie (test code 65.6 cm/s = 4741345666) MV Peak A Sweetie (test code 68.1 cm/s = 7673720532) E/A ratio (test code = ratio 2632215981) E wave decelartion time 0.13 s (test code = 6339994657) MR max PG (test code = 39.00 mm[Hg] 9895437553) MR max sweetie (test code = 312.40 cm/s 8859678192) Mr max sweetie (test code = 312.4 m/s 8104505176) MV Prop V (test code = 23.50 cm/s 7119318700) LAV(MOD-sp4) (test code 34.40 mL = 0772415872) Tapse (test code = 0.91 cm 1052910282) LVOT stroke volume (test 41.30 cm3 code = 8403087740) LVOT peak sweetie (test code 63.8 cm/s = 7265847590) LVOT mn grad (test code mmHg = 0699368238) AV LVOT peak gradient mmHg (test code = 9800295990) LVOT peak VTI (test code 11.8 cm = 2253745776) LV V1 mean (test code = 41.80 cm/s 1895702429) Ao peak sweetie (test code = 123.8 cm/s 3059956560) AV area peak sweetie (test 1.8 cm2 code = 8899184576) Ao max PG (test code = 6.10 mm[Hg] 6214376693) AV peak gradient (test mmHg code = 1578355599) LA Volume Index (BP) 20.7 mL/m2 (test code = 1223807652) LA volume (BP) (test 32.3 mL code = 9510051507) LAV(MOD-sp2) (test code 23.20 mL = 2369151127) LVIDD (test code = 4.90 cm 3150974090) Left Ventricular End 113.2 mL Diastolic Volume by Teichholz Method (test code = 2320926) IVS (test code = 0.91 cm 8748470520) Interventricular Septum 0.91 cm Diastolic Thickness by 2D (test code = 9631924) LVPWD (test code = 0.85 cm 3216413717) PW (test code = 0.85 cm 0.6-1.9 4050808089) EF(Teich) (test code = 44.80 % 2815712290) LVIDS (test code = 3.80 cm 7103233098) Left Ventricular End 62.5 mL Systolic Volume by Teichholz Method (test code = 7382568) FS (test code = 22 % 9822257794) EF - 2D (test code = 44.80 % 99992664) A4C EF (test code = 44.60 % 0148742840) EF(sp4-el) (test code = 44.90 % 4541529991) SV(MOD-sp4) (test code = 39.30 mL 1496123255) SV(sp4-el) (test code = 40.20 mL 3070661731) LV Diastolic Volume (BP) 81.7 mL (test code = 9726119568) A2C EF (test code = 30.20 % 7533345672) EF(MOD-bp) (test code = 35.70 % 2795329858) EF(sp2-el) (test code = 28.70 % 2429074065) LV Systolic Volume (BP) 52.6 mL (test code = 3057923964) SV(MOD-bp) (test code = 29.10 mL 9227861242) SV(MOD-sp2) (test code = 23.00 mL 6234977117) EF (test code = 9850957405) Left Ventricular Stroke 29.1 mL Volume by 2-D Biplane-MOD (test code = 6786670) LV Diastolic Volume 52.4 mL/m2 Index (BP) (test code = 3043102137) LV Systolic Volume Index 33.7 mL/m2 (BP) (test code = 9718262133) Radiology Study observation (narrative) (test code = 14542-5) ADD (test code = ADD) Addendum by Peggy Capps MD on 03/24/2022 4:30 PM CDT ?Left?Ventricle: Left ventricle size is normal. Normal wall thickness. Septal motion is consistent with post-operative status. . Moderate global hypokinesis present. Moderately reduced systolic function with a visually estimated EF of 35 - 40%. EF by 2D Cunningham biplane is 36%. There is grade 1 diastolic dysfunction and impaired relaxation. Normal left ventricular filling pressure. ?Right?Ventricle: Right ventricle size is normal. Normal systolic function. ?IVC/SVC: IVC diameter is less than or equal to 21 mm and decreases greater than 50% during inspiration; therefore the estimated right atrial pressure is normal (~0-5 mmHg). ?Tricuspid?Valve: Trace transvalvular regurgitation. Insufficient regurgant jet to estimate RVSP. ?Left?Atrium: Left atrium size is normal. Left atrium volume index is 20.7 mL/m2. Pawan Lopez VentricleLeft ventricle size is normal. Normal wall thickness. Septal motion is consistent with post-operative status. . Moderate global hypokinesis present. Moderately reduced systolic function with a visually estimated EF of 35 - 40%. EF by 2D Cunningham biplane is 36%. There is grade 1 diastolic dysfunction and impaired relaxation. Normal left ventricular filling pressure.Right VentricleRight ventricle size is normal. Normal systolic function.Left AtriumLeft atrium size is normal. Left atrium volume index is 20.7 mL/m2.Right AtriumRight atrium size is normal.IVC/SVCIVC diameter is less than or equal to 21 mm and decreases greater than 50% during inspiration; therefore the estimated right atrial pressure is normal (~0-5 mmHg).Mitral ValveMitral valve structure is normal. Trace transvalvular regurgitation.Tricusp id ValveTricuspid valve structure is normal. Trace transvalvular regurgitation. Insufficient regurgant jet to estimate RVSP.Aortic ValveAortic valve structure is normal.Pulmonic ValveNot well visualized.Ascending AortaNormal sized sinus of Valsalva.PericardiumT he pericardium is normal.Study DetailsStudy quality experienced technical difficulty. A complete echocardiogram was performed using 2D, color flow Doppler and spectral Doppler. 5 mL of Lumason ultrasound enhancing agent used. [facility] 21:29:38 Test Item Value Reference Range Interpretation Comments Height (test code = in 2437180930) Weight (test code = lbs 2038280019) Systolic BP (test code = mmHg 6385900909) Diastolic BP (test code mmHg = 4719922441) Heart Rate (test code = bpm 1721390997) BSA (test code = 1.56 m2 3442497235) LVOT diameter (test code 2.11 cm = 9835928640) LVOT area (test code = 3.50 cm2 0219106846) Ao root diam (test code 3.20 cm = 8390370690) Aortic root (test code = 3.2 cm 8484548785) Ao root annulus (test 3.2 cm code = 9646632954) LA size (test code = 2.8 cm 4469405679) MV Peak E Sweetie (test code 65.6 cm/s = 0323398666) MV Peak A Sweetie (test code 68.1 cm/s = 2212983005) E/A ratio (test code = ratio 3437825758) E wave decelartion time 0.13 s (test code = 2230275594) MR max PG (test code = 39.00 mm[Hg] 3804716398) MR max sweetie (test code = 312.40 cm/s 6823670225) Mr max sweetie (test code = 312.4 m/s 9262418642) MV Prop V (test code = 23.50 cm/s 6445805170) LAV(MOD-sp4) (test code 34.40 mL = 2358453583) Tapse (test code = 0.91 cm 5710860886) LVOT stroke volume (test 41.30 cm3 code = 8730196232) LVOT peak sweetie (test code 63.8 cm/s = 6075962686) LVOT mn grad (test code mmHg = 5799051402) AV LVOT peak gradient mmHg (test code = 6566614461) LVOT peak VTI (test code 11.8 cm = 0162169525) LV V1 mean (test code = 41.80 cm/s 7431162725) Ao peak sweetie (test code = 123.8 cm/s 7548466571) AV area peak sweetie (test 1.8 cm2 code = 8706169939) Ao max PG (test code = 6.10 mm[Hg] 7638925019) AV peak gradient (test mmHg code = 7753869522) LA Volume Index (BP) 20.7 mL/m2 (test code = 0337053160) LA volume (BP) (test 32.3 mL code = 5508481947) LAV(MOD-sp2) (test code 23.20 mL = 0783118834) LVIDD (test code = 4.90 cm 1064454199) Left Ventricular End 113.2 mL Diastolic Volume by Teichholz Method (test code = 8462029) IVS (test code = 0.91 cm 5625552463) Interventricular Septum 0.91 cm Diastolic Thickness by 2D (test code = 9427347) LVPWD (test code = 0.85 cm 8149811182) PW (test code = 0.85 cm 0.6-1.2 4608492165) EF(Teich) (test code = 44.80 % 1945068207) LVIDS (test code = 3.80 cm 8535666054) Left Ventricular End 62.5 mL Systolic Volume by Teichholz Method (test code = 3508924) FS (test code = 22 % 6136479939) EF - 2D (test code = 44.80 % 39590811) A4C EF (test code = 44.60 % 1172875254) EF(sp4-el) (test code = 44.90 % 9297862964) SV(MOD-sp4) (test code = 39.30 mL 8880480118) SV(sp4-el) (test code = 40.20 mL 2350638032) LV Diastolic Volume (BP) 81.7 mL (test code = 6373228115) A2C EF (test code = 30.20 % 5106415121) EF(MOD-bp) (test code = 35.70 % 8497705624) EF(sp2-el) (test code = 28.70 % 3913988770) LV Systolic Volume (BP) 52.6 mL (test code = 0518498673) SV(MOD-bp) (test code = 29.10 mL 7515063323) SV(MOD-sp2) (test code = 23.00 mL 7391119910) EF (test code = 8009108453) Left Ventricular Stroke 29.1 mL Volume by 2-D Biplane-MOD (test code = 9843095) LV Diastolic Volume 52.4 mL/m2 Index (BP) (test code = 1696753317) LV Systolic Volume Index 33.7 mL/m2 (BP) (test code = 5348644181) Radiology Study observation (narrative) (test code = 58091-8) ADD (test code = ADD) Addendum by Peggy Capps MD on 03/24/2022 4:30 PM CDT ?Left?Ventricle: Left ventricle size is normal. Normal wall thickness. Septal motion is consistent with post-operative status. . Moderate global hypokinesis present. Moderately reduced systolic function with a visually estimated EF of 35 - 40%. EF by 2D Cunningham biplane is 36%. There is grade 1 diastolic dysfunction and impaired relaxation. Normal left ventricular filling pressure. ?Right?Ventricle: Right ventricle size is normal. Normal systolic function. ?IVC/SVC: IVC diameter is less than or equal to 21 mm and decreases greater than 50% during inspiration; therefore the estimated right atrial pressure is normal (~0-5 mmHg). ?Tricuspid?Valve: Trace transvalvular regurgitation. Insufficient regurgant jet to estimate RVSP. ?Left?Atrium: Left atrium size is normal. Left atrium volume index is 20.7 mL/m2. Pawan Lopez VentricleLeft ventricle size is normal. Normal wall thickness. Septal motion is consistent with post-operative status. . Moderate global hypokinesis present. Moderately reduced systolic function with a visually estimated EF of 35 - 40%. EF by 2D Cunningham biplane is 36%. There is grade 1 diastolic dysfunction and impaired relaxation. Normal left ventricular filling pressure.Right VentricleRight ventricle size is normal. Normal systolic function.Left AtriumLeft atrium size is normal. Left atrium volume index is 20.7 mL/m2.Right AtriumRight atrium size is normal.IVC/SVCIVC diameter is less than or equal to 21 mm and decreases greater than 50% during inspiration; therefore the estimated right atrial pressure is normal (~0-5 mmHg).Mitral ValveMitral valve structure is normal. Trace transvalvular regurgitation.Tricusp id ValveTricuspid valve structure is normal. Trace transvalvular regurgitation. Insufficient regurgant jet to estimate RVSP.Aortic ValveAortic valve structure is normal.Pulmonic ValveNot well visualized.Ascending AortaNormal sized sinus of Valsalva.PericardiumT he pericardium is normal.Study DetailsStudy quality experienced technical difficulty. A complete echocardiogram was performed using 2D, color flow Doppler and spectral Doppler. 5 mL of Lumason ultrasound enhancing agent used. [facility] GLUCOSE (AUTOMATED)2022-03-24 17:10:50 Test Item Value Reference Range Interpretation Comments POCT GLU (test code = 7229867238) 254 mg/dL 70-110 H Lab Interpretation (test code = Abnormal 71943-8) [facility] GLUCOSE (AUTOMATED)2022-03-24 17:10:50 Test Item Value Reference Range Interpretation Comments POCT GLU (test code = 0262405592) 254 mg/dL 70-110 H Lab Interpretation (test code = Abnormal 25950-2) [facility] GLUCOSE (AUTOMATED)2022-03-24 17:10:50 Test Item Value Reference Range Interpretation Comments POCT GLU (test code = 7444433442) 254 mg/dL 70-110 H Lab Interpretation (test code = Abnormal 43494-9) [facility] GLUCOSE (AUTOMATED)2022-03-24 13:01:44 Test Item Value Reference Range Interpretation Comments POCT GLU (test code = 9849086912) 251 mg/dL 70-110 H Lab Interpretation (test code = Abnormal 60033-4) [facility] GLUCOSE (AUTOMATED)2022-03-24 13:01:44 Test Item Value Reference Range Interpretation Comments POCT GLU (test code = 6759039049) 251 mg/dL 70-110 H Lab Interpretation (test code = Abnormal 67610-7) [facility] GLUCOSE (AUTOMATED)2022-03-24 13:01:44 Test Item Value Reference Range Interpretation Comments POCT GLU (test code = 8525744051) 251 mg/dL 70-110 H Lab Interpretation (test code = Abnormal 01335-9) [facility] METABOLIC PANEL (NA, K, CL, CO2, GLUCOSE, BUN, CREATININE, CA)2022-03-24 11:58:48 Test Item Value Reference Range Interpretation Comments NA (test code = 135 mmol/L 135-145 4377764031) K (test code = 4.5 mmol/L 3.5-5.0 9291411806) CL (test code = 105 mmol/L 98-108 9049313338) CO2 TOTAL (test code = 25 mmol/L 23-31 0742021081) AGAP (test code = 2-16 5137301420) BUN (test code = 19 mg/dL 7-23 2917563950) GLUCOSE (test code = 208 mg/dL 70-110 H 2880706847) CREATININE (test code = 0.81 mg/dL 0.50-1.04 6128422987) CALCIUM (test code = 8.0 mg/dL 8.6-10.6 L 2843069243) eGFR (test code = mL/min/1.73m2 7896717031) NISHA (test code = NISHA) Association of [...] tests). Lab Interpretation Abnormal (test code = 33045-4) [facility] Test Item Value Reference Range Interpretation Comments MAGNESIUM (test code = 3472943455) 1.7 mg/dL 1.7-2.4 Lab Interpretation (test code = Normal 37565-3) [facility] 11:58:48 Test Item Value Reference Range Interpretation Comments PHOSPHORUS (test code = 4241106648) 3.6 mg/dL 2.5-5.0 Lab Interpretation (test code = Normal 81466-3) [facility] (NA, K, CL, CO2, GLUCOSE, BUN, CREATININE, CA)2022-03-24 11:58:48 Test Item Value Reference Range Interpretation Comments NA (test code = 135 mmol/L 135-145 5382616541) K (test code = 4.5 mmol/L 3.5-5.0 2055526904) CL (test code = 105 mmol/L 98-108 3623359180) CO2 TOTAL (test code = 25 mmol/L 23-31 7211101489) AGAP (test code = 2-16 9766006124) BUN (test code = 19 mg/dL 7-23 6448905187) GLUCOSE (test code = 208 mg/dL 70-110 H 8498984860) CREATININE (test code = 0.81 mg/dL 0.50-1.04 9284503464) CALCIUM (test code = 8.0 mg/dL 8.6-10.6 L 3281051249) eGFR (test code = mL/min/1.73m2 1218389766) NISHA (test code = NISHA) Association of [...] tests). Lab Interpretation Abnormal (test code = 31470-9) [facility]:58:48 Test Item Value Reference Range Interpretation Comments MAGNESIUM (test code = 4403101587) 1.7 mg/dL 1.7-2.4 Lab Interpretation (test code = Normal 76598-9) [facility] 11:58:48 Test Item Value Reference Range Interpretation Comments PHOSPHORUS (test code = 1416579481) 3.6 mg/dL 2.5-5.0 Lab Interpretation (test code = Normal 29589-3) [facility] (NA, K, CL, CO2, GLUCOSE, BUN, CREATININE, CA)2022-03-24 11:58:48 Test Item Value Reference Range Interpretation Comments NA (test code = 135 mmol/L 135-145 5802871080) K (test code = 4.5 mmol/L 3.5-5.0 5317398157) CL (test code = 105 mmol/L 98-108 8063136190) CO2 TOTAL (test code = 25 mmol/L 23-31 3846004238) AGAP (test code = 2-16 5323994421) BUN (test code = 19 mg/dL 7-23 0678062958) GLUCOSE (test code = 208 mg/dL 70-110 H 8450889287) CREATININE (test code = 0.81 mg/dL 0.50-1.04 2286451368) CALCIUM (test code = 8.0 mg/dL 8.6-10.6 L 4398457591) eGFR (test code = mL/min/1.73m2 8834054971) NISHA (test code = NISHA) Association of [...] tests). Lab Interpretation Abnormal (test code = 61298-4) [facility] 11:58:48 Test Item Value Reference Range Interpretation Comments MAGNESIUM (test code = 6836459930) 1.7 mg/dL 1.7-2.4 Lab Interpretation (test code = Normal 35356-0) [facility] 11:58:48 Test Item Value Reference Range Interpretation Comments PHOSPHORUS (test code = 2019520391) 3.6 mg/dL 2.5-5.0 Lab Interpretation (test code = Normal 77714-9) [facility] CULTURE [id number] 07:01:02 Test Item Value Reference Range Interpretation Comments Blood Culture-Aerobic No organisms No growth Previo us (test code = 33991-3) isolated prelim inary verified result was Culture In Progress on 03/19/2022 at 0502 CDTPreviou s preliminary verified result was No growth a t 24 hours on 03/20/2022 at 0201 CDTPreviou s preliminary verified result was No growth a t 48 hours on 03/21/2022 at 0201 CDTPreviou s preliminary verified result was No growth a t 72 hours on 03/22/2022 at 0201 CDT Blood No organisms No growth Previous Culture-Anaerobic isolated preliminar y (test code = 92970-5) verifi ed result was Culture In Progress on 03/19/2022 at 0502 CDTPreviou s preliminary verified result was No growth a t 24 hours on 03/20/2022 at 0201 CDTPreviou s preliminary verified result was No growth a t 48 hours on 03/21/2022 at 0201 CDTPreviou s preliminary verified result was No growth a t 72 hours on 03/22/2022 at 0201 CDT Lab Interpretation Normal (test code = 24078-4) [facility] CULTURE [id number] 07:01:02 Test Item Value Reference Range Interpretation Comments Blood Culture-Aerobic No organisms No growth Previo us (test code = 02854-8) isolated prelim inary verified result was Culture In Progress on 03/19/2022 at 0502 CDTPreviou s preliminary verified result was No growth a t 24 hours on 03/20/2022 at 0201 CDTPreviou s preliminary verified result was No growth a t 48 hours on 03/21/2022 at 0201 CDTPreviou s preliminary verified result was No growth a t 72 hours on 03/22/2022 at 0201 CDT Blood No organisms No growth Previous Culture-Anaerobic isolated preliminar y (test code = 43212-8) verifi ed result was Culture In Progress on 03/19/2022 at 0502 CDTPreviou s preliminary verified result was No growth a t 24 hours on 03/20/2022 at 0201 CDTPreviou s preliminary verified result was No growth a t 48 hours on 03/21/2022 at 0201 CDTPreviou s preliminary verified result was No growth a t 72 hours on 03/22/2022 at 0201 CDT Lab Interpretation Normal (test code = 29538-6) [facility] CULTURE [id number] 07:01:02 Test Item Value Reference Range Interpretation Comments Blood Culture-Aerobic No organisms No growth Previo us (test code = 16817-4) isolated prelim inary verified result was Culture In Progress on 03/19/2022 at 0502 CDTPreviou s preliminary verified result was No growth a t 24 hours on 03/20/2022 at 0201 CDTPreviou s preliminary verified result was No growth a t 48 hours on 03/21/2022 at 0201 CDTPreviou s preliminary verified result was No growth a t 72 hours on 03/22/2022 at 0201 CDT Blood No organisms No growth Previous Culture-Anaerobic isolated preliminar y (test code = 98872-3) verifi ed result was Culture In Progress on 03/19/2022 at 0502 CDTPreviou s preliminary verified result was No growth a t 24 hours on 03/20/2022 at 0201 CDTPreviou s preliminary verified result was No growth a t 48 hours on 03/21/2022 at 0201 CDTPreviou s preliminary verified result was No growth a t 72 hours on 03/22/2022 at 0201 CDT Lab Interpretation Normal (test code = 11748-6) [facility] CULTURE [id number] 07:01:02 Test Item Value Reference Range Interpretation Comments Blood Culture-Aerobic No organisms No growth Previo us (test code = 83963-5) isolated prelim inary verified result was Culture In Progress on 03/19/2022 at 0502 CDTPreviou s preliminary verified result was No growth a t 24 hours on 03/20/2022 at 0201 CDTPreviou s preliminary verified result was No growth a t 48 hours on 03/21/2022 at 0201 CDTPreviou s preliminary verified result was No growth a t 72 hours on 03/22/2022 at 0201 CDT Blood No organisms No growth Previous Culture-Anaerobic isolated preliminar y (test code = 40286-1) verifi ed result was Culture In Progress on 03/19/2022 at 0502 CDTPreviou s preliminary verified result was No growth a t 24 hours on 03/20/2022 at 0201 CDTPreviou s preliminary verified result was No growth a t 48 hours on 03/21/2022 at 0201 CDTPreviou s preliminary verified result was No growth a t 72 hours on 03/22/2022 at 0201 CDT Lab Interpretation Normal (test code = 91008-0) [facility] CULTURE [id number] 07:01:02 Test Item Value Reference Range Interpretation Comments Blood Culture-Aerobic No organisms No growth Previo us (test code = 22619-8) isolated prelim inary verified result was Culture In Progress on 03/19/2022 at 0502 CDTPreviou s preliminary verified result was No growth a t 24 hours on 03/20/2022 at 0201 CDTPreviou s preliminary verified result was No growth a t 48 hours on 03/21/2022 at 0201 CDTPreviou s preliminary verified result was No growth a t 72 hours on 03/22/2022 at 0201 CDT Blood No organisms No growth Previous Culture-Anaerobic isolated preliminar y (test code = 19570-2) verifi ed result was Culture In Progress on 03/19/2022 at 0502 CDTPreviou s preliminary verified result was No growth a t 24 hours on 03/20/2022 at 0201 CDTPreviou s preliminary verified result was No growth a t 48 hours on 03/21/2022 at 0201 CDTPreviou s preliminary verified result was No growth a t 72 hours on 03/22/2022 at 0201 CDT Lab Interpretation Normal (test code = 74710-6) [facility] CULTURE [id number] 07:01:02 Test Item Value Reference Range Interpretation Comments Blood Culture-Aerobic No organisms No growth Previo us (test code = 57048-1) isolated prelim inary verified result was Culture In Progress on 03/19/2022 at 0502 CDTPreviou s preliminary verified result was No growth a t 24 hours on 03/20/2022 at 0201 CDTPreviou s preliminary verified result was No growth a t 48 hours on 03/21/2022 at 0201 CDTPreviou s preliminary verified result was No growth a t 72 hours on 03/22/2022 at 0201 CDT Blood No organisms No growth Previous Culture-Anaerobic isolated preliminar y (test code = 32674-7) verifi ed result was Culture In Progress on 03/19/2022 at 0502 CDTPreviou s preliminary verified result was No growth a t 24 hours on 03/20/2022 at 0201 CDTPreviou s preliminary verified result was No growth a t 48 hours on 03/21/2022 at 0201 CDTPreviou s preliminary verified result was No growth a t 72 hours on 03/22/2022 at 0201 CDT Lab Interpretation Normal (test code = 54658-6) [facility] [id number] [facility]:01:02 Test Item Value Reference Range Interpretation Comments Blood Culture-Aerobic No organisms No growth Previo us (test code = 04412-0) isolated prelim inary verified result was Culture In Progress on 03/19/2022 at 0502 CDTPreviou s preliminary verified result was No growth a t 24 hours on 03/20/2022 at 0201 CDTPreviou s preliminary verified result was No growth a t 48 hours on 03/21/2022 at 0201 CDTPreviou s preliminary verified result was No growth a t 72 hours on 03/22/2022 at 0201 CDT Blood No organisms No growth Previous Culture-Anaerobic isolated preliminar y (test code = 16199-2) verifi ed result was Culture In Progress on 03/19/2022 at 0502 CDTPreviou s preliminary verified result was No growth a t 24 hours on 03/20/2022 at 0201 CDTPreviou s preliminary verified result was No growth a t 48 hours on 03/21/2022 at 0201 CDTPreviou s preliminary verified result was No growth a t 72 hours on 03/22/2022 at 0201 CDT Lab Interpretation Normal (test code = 76989-9) [facility] GLUCOSE (AUTOMATED)2022-03-24 01:11:03 Test Item Value Reference Range Interpretation Comments POCT GLU (test code = 9153483531) 211 mg/dL 70-110 H Lab Interpretation (test code = Abnormal 48271-2) [facility] GLUCOSE (AUTOMATED)2022-03-24 01:11:03 Test Item Value Reference Range Interpretation Comments POCT GLU (test code = 5268261093) 211 mg/dL 70-110 H Lab Interpretation (test code = Abnormal 17636-0) [facility] GLUCOSE (AUTOMATED)2022-03-24 01:11:03 Test Item Value Reference Range Interpretation Comments POCT GLU (test code = 6640809862) 211 mg/dL 70-110 H Lab Interpretation (test code = Abnormal 83837-8) [facility] GLUCOSE (AUTOMATED)2022-03-23 22:13:29 Test Item Value Reference Range Interpretation Comments POCT GLU (test code = 7033246283) 89 mg/dL 70-110 Lab Interpretation (test code = Normal 96350-1) [facility] GLUCOSE (AUTOMATED)2022-03-23 22:13:29 Test Item Value Reference Range Interpretation Comments POCT GLU (test code = 6900396982) 89 mg/dL 70-110 Lab Interpretation (test code = Normal 73335-3) [facility] GLUCOSE (AUTOMATED)2022-03-23 22:13:29 Test Item Value Reference Range Interpretation Comments POCT GLU (test code = 1833357055) 89 mg/dL 70-110 Lab Interpretation (test code = Normal 72725-6) [facility] GLUCOSE (AUTOMATED)2022-03-23 16:48:55 Test Item Value Reference Range Interpretation Comments POCT GLU (test code = 0157835998) 274 mg/dL 70-110 H Lab Interpretation (test code = Abnormal 91935-1) [facility] GLUCOSE (AUTOMATED)2022-03-23 16:48:55 Test Item Value Reference Range Interpretation Comments POCT GLU (test code = 1497158858) 274 mg/dL 70-110 H Lab Interpretation (test code = Abnormal 86120-0) [facility] GLUCOSE (AUTOMATED)2022-03-23 16:48:55 Test Item Value Reference Range Interpretation Comments POCT GLU (test code = 1958771591) 274 mg/dL 70-110 H Lab Interpretation (test code = Abnormal 42968-5) [facility] GLUCOSE (AUTOMATED)2022-03-23 13:16:06 Test Item Value Reference Range Interpretation Comments POCT GLU (test code = 6293714430) 222 mg/dL 70-110 H Lab Interpretation (test code = Abnormal 90650-3) [facility] GLUCOSE (AUTOMATED)2022-03-23 13:16:06 Test Item Value Reference Range Interpretation Comments POCT GLU (test code = 0427410069) 222 mg/dL 70-110 H Lab Interpretation (test code = Abnormal 67679-2) [facility] GLUCOSE (AUTOMATED)2022-03-23 13:16:06 Test Item Value Reference Range Interpretation Comments POCT GLU (test code = 4800445963) 222 mg/dL 70-110 H Lab Interpretation (test code = Abnormal 25826-7) [facility] GLUCOSE (AUTOMATED)2022-03-23 01:21:36 Test Item Value Reference Range Interpretation Comments POCT GLU (test code = 243 mg/dL 70-110 H Notifi ed Provider [id number]) Lab Interpretation (test Abnormal code = 11326-9) [facility] GLUCOSE (AUTOMATED)2022-03-23 01:21:36 Test Item Value Reference Range Interpretation Comments POCT GLU (test code = 243 mg/dL 70-110 H Notifi ed Provider [id number]) Lab Interpretation (test Abnormal code = 82563-4) [facility] GLUCOSE (AUTOMATED)2022-03-23 01:21:36 Test Item Value Reference Range Interpretation Comments POCT GLU (test code = 243 mg/dL 70-110 H Notifi ed Provider [id number]) Lab Interpretation (test Abnormal code = 68837-9) [facility] GLUCOSE (AUTOMATED)2022-03-22 23:40:15 Test Item Value Reference Range Interpretation Comments POCT GLU (test code = 2559441731) 196 mg/dL 70-110 H Lab Interpretation (test code = Abnormal 86770-5) [facility] GLUCOSE (AUTOMATED)2022-03-22 23:40:15 Test Item Value Reference Range Interpretation Comments POCT GLU (test code = 7667125847) 196 mg/dL 70-110 H Lab Interpretation (test code = Abnormal 07832-9) [facility] GLUCOSE (AUTOMATED)2022-03-22 23:40:15 Test Item Value Reference Range Interpretation Comments POCT GLU (test code = 7800081096) 196 mg/dL 70-110 H Lab Interpretation (test code = Abnormal 30464-9) [facility] GLUCOSE (AUTOMATED)2022-03-22 17:03:03 Test Item Value Reference Range Interpretation Comments POCT GLU (test code = 5831340550) 250 mg/dL 70-110 H Lab Interpretation (test code = Abnormal 26214-5) [facility] GLUCOSE (AUTOMATED)2022-03-22 17:03:03 Test Item Value Reference Range Interpretation Comments POCT GLU (test code = 7957385349) 250 mg/dL 70-110 H Lab Interpretation (test code = Abnormal 16207-8) [facility] GLUCOSE (AUTOMATED)2022-03-22 17:03:03 Test Item Value Reference Range Interpretation Comments POCT GLU (test code = 0113824792) 250 mg/dL 70-110 H Lab Interpretation (test code = Abnormal 52964-0) [facility] GLUCOSE (AUTOMATED)2022-03-22 13:06:53 Test Item Value Reference Range Interpretation Comments POCT GLU (test code = 3836966198) 276 mg/dL 70-110 H Lab Interpretation (test code = Abnormal 62104-7) [facility] GLUCOSE (AUTOMATED)2022-03-22 13:06:53 Test Item Value Reference Range Interpretation Comments POCT GLU (test code = 8642987052) 276 mg/dL 70-110 H Lab Interpretation (test code = Abnormal 94539-2) [facility] GLUCOSE (AUTOMATED)2022-03-22 13:06:53 Test Item Value Reference Range Interpretation Comments POCT GLU (test code = 0277867009) 276 mg/dL 70-110 H Lab Interpretation (test code = Abnormal 14991-1) [facility] WITH [id number] 10:40:52 Test Item Value Reference Range Interpretation Comments [...] as normal/abnormal . HGB (test code = 11.7 g/dL 11.6-15.0 718-7) HCT (test code = 33.9 % 35.7-45.2 L 4544-3) MCV (test code = 86.9 fL 80.6-95.5 787-2) MCH (test code = 30.0 pg 25.9-32.8 785-6) MCHC (test code = 34.5 g/dL 31.6-35.1 786-4) RDW-SD (test code = 39.0 fL 39.0-49.9 09031-1) RDW-CV (test code = 12.2 % 12.0-15.5 788-0) PLT (test code = See_Comment [Automated 777-3) message] The sy stem which generated this result transmitted reference range : 166 - 358 10*3/ ?L. The reference r chelsie was not used to interpret this result as normal/abnormal . MPV (test code = 10.7 fL 9.5-12.9 02629-2) NRBC/100 WBC (test See_Comment [Automat ed code = 1625876808) message] The system which generated this result transmitted reference range : 0.0 - 10.0 /100 WBCs. The refer ence range was not u sed to interpret th is result as normal/abnormal . NRBC x10^3 (test code See_Comment [Auto mated = 8160889524) message] The s ystem which generated this result transmitted reference range : 10*3/?L. The reference range was not used to interpret this result as normal/abnormal . GRAN MAT (NEUT) % 59.2 % (test code = 770-8) IMM GRAN % (test code 0.30 % = 1254059146) LYMPH % (test code = 27.8 % 736-9) MONO % (test code = 10.7 % 5905-5) EOS % (test code = 1.5 % 713-8) BASO % (test code = 0.5 % 706-2) GRAN MAT x10^3(ANC) 5.24 10*3/uL 1.88-7.09 (test code = 4812532775) IMM GRAN x10^3 (test 0.03 10*3/uL 0.00-0.06 code = 2528962561) LYMPH x10^3 (test code 2.46 10*3/uL 1.32-3.29 = 731-0) MONO x10^3 (test code 0.95 10*3/uL 0.33-0.92 H = 742-7) EOS x10^3 (test code = 0.13 10*3/uL 0.03-0.39 711-2) BASO x10^3 (test code 0.04 10*3/uL 0.01-0.07 = 704-7) Lab Interpretation Abnormal (test code = 41482-7) [facility] WITH [id number] 10:40:52 Test Item Value Reference Range Interpretation Comments [...] as normal/abnormal . HGB (test code = 11.7 g/dL 11.6-15.0 718-7) HCT (test code = 33.9 % 35.7-45.2 L 4544-3) MCV (test code = 86.9 fL 80.6-95.5 787-2) MCH (test code = 30.0 pg 25.9-32.8 785-6) MCHC (test code = 34.5 g/dL 31.6-35.1 786-4) RDW-SD (test code = 39.0 fL 39.0-49.9 38708-1) RDW-CV (test code = 12.2 % 12.0-15.5 788-0) PLT (test code = See_Comment [Automated 777-3) message] The sy stem which generated this result transmitted reference range : 166 - 358 10*3/ ?L. The reference r chelsie was not used to interpret this result as normal/abnormal . MPV (test code = 10.7 fL 9.5-12.9 77158-9) NRBC/100 WBC (test See_Comment [Automat ed code = 3993791086) message] The system which generated this result transmitted reference range : 0.0 - 10.0 /100 WBCs. The refer ence range was not u sed to interpret th is result as normal/abnormal . NRBC x10^3 (test code See_Comment [Auto mated = 0566062294) message] The s ystem which generated this result transmitted reference range : 10*3/?L. The reference range was not used to interpret this result as normal/abnormal . GRAN MAT (NEUT) % 59.2 % (test code = 770-8) IMM GRAN % (test code 0.30 % = 6394846924) LYMPH % (test code = 27.8 % 736-9) MONO % (test code = 10.7 % 5905-5) EOS % (test code = 1.5 % 713-8) BASO % (test code = 0.5 % 706-2) GRAN MAT x10^3(ANC) 5.24 10*3/uL 1.88-7.09 (test code = 4705075184) IMM GRAN x10^3 (test 0.03 10*3/uL 0.00-0.06 code = 8557223807) LYMPH x10^3 (test code 2.46 10*3/uL 1.32-3.29 = 731-0) MONO x10^3 (test code 0.95 10*3/uL 0.33-0.92 H = 742-7) EOS x10^3 (test code = 0.13 10*3/uL 0.03-0.39 711-2) BASO x10^3 (test code 0.04 10*3/uL 0.01-0.07 = 704-7) Lab Interpretation Abnormal (test code = 09491-7) [facility] WITH [id number] 10:40:52 Test Item Value Reference Range Interpretation Comments [...] as normal/abnormal . HGB (test code = 11.7 g/dL 11.6-15.0 718-7) HCT (test code = 33.9 % 35.7-45.2 L 4544-3) MCV (test code = 86.9 fL 80.6-95.5 787-2) MCH (test code = 30.0 pg 25.9-32.8 785-6) MCHC (test code = 34.5 g/dL 31.6-35.1 786-4) RDW-SD (test code = 39.0 fL 39.0-49.9 59865-0) RDW-CV (test code = 12.2 % 12.0-15.5 788-0) PLT (test code = See_Comment [Automated 777-3) message] The sy stem which generated this result transmitted reference range : 166 - 358 10*3/ ?L. The reference r chelsie was not used to interpret this result as normal/abnormal . MPV (test code = 10.7 fL 9.5-12.9 46875-3) NRBC/100 WBC (test See_Comment [Automat ed code = 3088582392) message] The system which generated this result transmitted reference range : 0.0 - 10.0 /100 WBCs. The refer ence range was not u sed to interpret th is result as normal/abnormal . NRBC x10^3 (test code See_Comment [Auto mated = 2212301894) message] The s ystem which generated this result transmitted reference range : 10*3/?L. The reference range was not used to interpret this result as normal/abnormal . GRAN MAT (NEUT) % 59.2 % (test code = 770-8) IMM GRAN % (test code 0.30 % = 0721464309) LYMPH % (test code = 27.8 % 736-9) MONO % (test code = 10.7 % 5905-5) EOS % (test code = 1.5 % 713-8) BASO % (test code = 0.5 % 706-2) GRAN MAT x10^3(ANC) 5.24 10*3/uL 1.88-7.09 (test code = 8885781342) IMM GRAN x10^3 (test 0.03 10*3/uL 0.00-0.06 code = 8109188648) LYMPH x10^3 (test code 2.46 10*3/uL 1.32-3.29 = 731-0) MONO x10^3 (test code 0.95 10*3/uL 0.33-0.92 H = 742-7) EOS x10^3 (test code = 0.13 10*3/uL 0.03-0.39 711-2) BASO x10^3 (test code 0.04 10*3/uL 0.01-0.07 = 704-7) Lab Interpretation Abnormal (test code = 22943-7) [facility] GLUCOSE (AUTOMATED)2022-03-22 01:41:40 Test Item Value Reference Range Interpretation Comments POCT GLU (test code = 8245076543) 213 mg/dL 70-110 H Lab Interpretation (test code = Abnormal 64501-8) [facility] GLUCOSE (AUTOMATED)2022-03-22 01:41:40 Test Item Value Reference Range Interpretation Comments POCT GLU (test code = 0286481295) 213 mg/dL 70-110 H Lab Interpretation (test code = Abnormal 55967-2) [facility] GLUCOSE (AUTOMATED)2022-03-22 01:41:40 Test Item Value Reference Range Interpretation Comments POCT GLU (test code = 3714106497) 213 mg/dL 70-110 H Lab Interpretation (test code = Abnormal 62818-7) [facility] GLUCOSE (AUTOMATED)2022-03-21 22:02:36 Test Item Value Reference Range Interpretation Comments POCT GLU (test code = 7073615740) 181 mg/dL 70-110 H Lab Interpretation (test code = Abnormal 59132-3) [facility] GLUCOSE (AUTOMATED)2022-03-21 22:02:36 Test Item Value Reference Range Interpretation Comments POCT GLU (test code = 0591044897) 181 mg/dL 70-110 H Lab Interpretation (test code = Abnormal 90969-7) [facility] GLUCOSE (AUTOMATED)2022-03-21 22:02:36 Test Item Value Reference Range Interpretation Comments POCT GLU (test code = 0684445540) 181 mg/dL 70-110 H Lab Interpretation (test code = Abnormal 79703-1) [facility] [id number] 20:49:11 Test Item Value Reference Range Interpretation Comments VANCO RANDOM (test code = 7.6 ug/mL 4088662622) [facility] [id number] 20:49:11 Test Item Value Reference Range Interpretation Comments VANCO RANDOM (test code = 7.6 ug/mL 4481071909) [facility] [id number] 20:49:11 Test Item Value Reference Range Interpretation Comments VANCO RANDOM (test code = 7.6 ug/mL 4071964124) [facility] [id number] 20:49:11 Test Item Value Reference Range Interpretation Comments VANCO RANDOM (test code = 7.6 ug/mL 5271724136) [facility] GLUCOSE (AUTOMATED)2022-03-21 17:10:01 Test Item Value Reference Range Interpretation Comments POCT GLU (test code = 7125951745) 291 mg/dL 70-110 H Lab Interpretation (test code = Abnormal 25711-9) [facility] GLUCOSE (AUTOMATED)2022-03-21 17:10:01 Test Item Value Reference Range Interpretation Comments POCT GLU (test code = 8904814727) 291 mg/dL 70-110 H Lab Interpretation (test code = Abnormal 71361-4) [facility] GLUCOSE (AUTOMATED)2022-03-21 17:10:01 Test Item Value Reference Range Interpretation Comments POCT GLU (test code = 5052924876) 291 mg/dL 70-110 H Lab Interpretation (test code = Abnormal 82549-0) [facility] GLUCOSE (AUTOMATED)2022-03-21 13:43:44 Test Item Value Reference Range Interpretation Comments POCT GLU (test code = 8383047900) 342 mg/dL 70-110 H Lab Interpretation (test code = Abnormal 07346-7) [facility] GLUCOSE (AUTOMATED)2022-03-21 13:43:44 Test Item Value Reference Range Interpretation Comments POCT GLU (test code = 5303851074) 342 mg/dL 70-110 H Lab Interpretation (test code = Abnormal 60608-5) [facility] GLUCOSE (AUTOMATED)2022-03-21 13:43:44 Test Item Value Reference Range Interpretation Comments POCT GLU (test code = 7343224165) 342 mg/dL 70-110 H Lab Interpretation (test code = Abnormal 98040-2) [facility] GLUCOSE (AUTOMATED)2022-03-21 01:37:37 Test Item Value Reference Range Interpretation Comments POCT GLU (test code = 6218106912) 231 mg/dL 70-110 H Lab Interpretation (test code = Abnormal 55525-5) [facility] GLUCOSE (AUTOMATED)2022-03-21 01:37:37 Test Item Value Reference Range Interpretation Comments POCT GLU (test code = 0823106224) 231 mg/dL 70-110 H Lab Interpretation (test code = Abnormal 67685-8) [facility] GLUCOSE (AUTOMATED)2022-03-21 01:37:37 Test Item Value Reference Range Interpretation Comments POCT GLU (test code = 7398370009) 231 mg/dL 70-110 H Lab Interpretation (test code = Abnormal 54682-5) [facility] GLUCOSE (AUTOMATED)2022-03-20 22:06:52 Test Item Value Reference Range Interpretation Comments POCT GLU (test code = 3866573030) 136 mg/dL 70-110 H Lab Interpretation (test code = Abnormal 25029-8) [facility] GLUCOSE (AUTOMATED)2022-03-20 22:06:52 Test Item Value Reference Range Interpretation Comments POCT GLU (test code = 0503541196) 136 mg/dL 70-110 H Lab Interpretation (test code = Abnormal 15124-7) [facility] 22:06:52 Test Item Value Reference Range Interpretation Comments POCT GLU (test code = 5325426057) 136 mg/dL 70-110 H Lab Interpretation (test code = Abnormal 29310-4) [facility] GLUCOSE (AUTOMATED)2022-03-20 16:41:19 Test Item Value Reference Range Interpretation Comments POCT GLU (test code = 3992957327) 329 mg/dL 70-110 H Lab Interpretation (test code = Abnormal 99350-4) [facility] GLUCOSE (AUTOMATED)2022-03-20 16:41:19 Test Item Value Reference Range Interpretation Comments POCT GLU (test code = 0482355374) 329 mg/dL 70-110 H Lab Interpretation (test code = Abnormal 57115-2) [facility] GLUCOSE (AUTOMATED)2022-03-20 16:41:19 Test Item Value Reference Range Interpretation Comments POCT GLU (test code = 2111967539) 329 mg/dL 70-110 H Lab Interpretation (test code = Abnormal 45000-4) [facility] GLUCOSE (AUTOMATED)2022-03-20 12:38:22 Test Item Value Reference Range Interpretation Comments POCT GLU (test code = 9348755618) 178 mg/dL 70-110 H Lab Interpretation (test code = Abnormal 78072-0) [facility] GLUCOSE (AUTOMATED)2022-03-20 12:38:22 Test Item Value Reference Range Interpretation Comments POCT GLU (test code = 5448164494) 178 mg/dL 70-110 H Lab Interpretation (test code = Abnormal 60422-4) [facility] GLUCOSE (AUTOMATED)2022-03-20 12:38:22 Test Item Value Reference Range Interpretation Comments POCT GLU (test code = 8887683939) 178 mg/dL 70-110 H Lab Interpretation (test code = Abnormal 73834-6) [facility] GLUCOSE (AUTOMATED)2022-03-20 01:23:07 Test Item Value Reference Range Interpretation Comments POCT GLU (test code = 4988631508) 232 mg/dL 70-110 H Lab Interpretation (test code = Abnormal 51281-6) [facility] 01:23:07 Test Item Value Reference Range Interpretation Comments POCT GLU (test code = 3727434605) 232 mg/dL 70-110 H Lab Interpretation (test code = Abnormal 91602-8) [facility] 01:23:07 Test Item Value Reference Range Interpretation Comments POCT GLU (test code = 9479751249) 232 mg/dL 70-110 H Lab Interpretation (test code = Abnormal 02056-1) [facility] 23:58:11 Test Item Value Reference Range Interpretation Comments POCT GLU (test code = 5028447144) 193 mg/dL 70-110 H Lab Interpretation (test code = Abnormal 55906-5) [facility] 23:58:11 Test Item Value Reference Range Interpretation Comments POCT GLU (test code = 6403993928) 193 mg/dL 70-110 H Lab Interpretation (test code = Abnormal 89278-1) [facility] 23:58:11 Test Item Value Reference Range Interpretation Comments POCT GLU (test code = 2390759901) 193 mg/dL 70-110 H Lab Interpretation (test code = Abnormal 44583-1) [facility] 16:47:08 Test Item Value Reference Range Interpretation Comments POCT GLU (test code = 7633501064) 275 mg/dL 70-110 H Lab Interpretation (test code = Abnormal 73372-5) [facility] 16:47:08 Test Item Value Reference Range Interpretation Comments POCT GLU (test code = 3415103334) 275 mg/dL 70-110 H Lab Interpretation (test code = Abnormal 85095-9) [facility] 16:47:08 Test Item Value Reference Range Interpretation Comments POCT GLU (test code = 3415314497) 275 mg/dL 70-110 H Lab Interpretation (test code = Abnormal 29577-1) [facility]22-[facility]-19 15:10:36 Test Item Value Reference Range Interpretation Comments HGB A1C (test code = 4.0-5.7 H 4548-4) NISHA (test code = NISHA) Reference RangesNormal: <5.7%Prediabetes: 5.7 - 6.4%Diabetes: > 6.5% Lab Interpretation (test Abnormal code = 24826-8) [facility]22-03-19 15:10:36 Test Item Value Reference Range Interpretation Comments HGB A1C (test code = 4.0-5.7 H 4548-4) NISHA (test code = NISHA) Reference RangesNormal: <5.7%Prediabetes: 5.7 - 6.4%Diabetes: > 6.5% Lab Interpretation (test Abnormal code = 82267-4) [facility]22-03-19 15:10:36 Test Item Value Reference Range Interpretation Comments HGB A1C (test code = 4.0-5.7 H 4548-4) NISHA (test code = NISHA) Reference RangesNormal: <5.7%Prediabetes: 5.7 - 6.4%Diabetes: > 6.5% Lab Interpretation (test Abnormal code = 40073-5) [facility]22-03-19 15:10:36 Test Item Value Reference Range Interpretation Comments HGB A1C (test code = 4.0-5.7 H 4548-4) NISHA (test code = NISHA) Reference RangesNormal: <5.7%Prediabetes: 5.7 - 6.4%Diabetes: > 6.5% Lab Interpretation (test Abnormal code = 44057-0) [facility] GLUCOSE (AUTOMATED)2022-03-19 12:34:11 Test Item Value Reference Range Interpretation Comments POCT GLU (test code = 2302639016) 275 mg/dL 70-110 H Lab Interpretation (test code = Abnormal 21899-9) [facility] GLUCOSE (AUTOMATED)2022-03-19 12:34:11 Test Item Value Reference Range Interpretation Comments POCT GLU (test code = 7264759588) 275 mg/dL 70-110 H Lab Interpretation (test code = Abnormal 26095-0) [facility] 12:34:11 Test Item Value Reference Range Interpretation Comments POCT GLU (test code = 1785148753) 275 mg/dL 70-110 H Lab Interpretation (test code = Abnormal 79227-7) [facility] METABOLIC PANEL (NA, K, CL, CO2, GLUCOSE, BUN, CREATININE, CA)2022-03-19 09:28:45 Test Item Value Reference Range Interpretation Comments NA (test code = 134 mmol/L 135-145 L 5406003334) K (test code = 3.9 mmol/L 3.5-5.0 8015003606) CL (test code = 102 mmol/L 98-108 2007156479) CO2 TOTAL (test code = 24 mmol/L 23-31 2775410611) AGAP (test code = 2-16 5954399420) BUN (test code = 15 mg/dL 7-23 3334797189) GLUCOSE (test code = 249 mg/dL 70-110 H 5588756839) CREATININE (test code = 0.57 mg/dL 0.50-1.04 1559870729) CALCIUM (test code = 8.2 mg/dL 8.6-10.6 L 5957899613) eGFR (test code = mL/min/1.73m2 5269937138) NISHA (test code = NISHA) Association of [...] tests). Lab Interpretation Abnormal (test code = 64322-8) [facility] METABOLIC PANEL (NA, K, CL, CO2, GLUCOSE, BUN, CREATININE, CA)2022-03-19 09:28:45 Test Item Value Reference Range Interpretation Comments NA (test code = 134 mmol/L 135-145 L 1771165318) K (test code = 3.9 mmol/L 3.5-5.0 5320626892) CL (test code = 102 mmol/L 98-108 4547090016) CO2 TOTAL (test code = 24 mmol/L 23-31 6041663981) AGAP (test code = 2-16 2687267292) BUN (test code = 15 mg/dL 7-23 3182350293) GLUCOSE (test code = 249 mg/dL 70-110 H 1858613162) CREATININE (test code = 0.57 mg/dL 0.50-1.04 8780205722) CALCIUM (test code = 8.2 mg/dL 8.6-10.6 L 0367104847) eGFR (test code = mL/min/1.73m2 1747364910) NISHA (test code = NISHA) Association of [...] tests). Lab Interpretation Abnormal (test code = 29578-2) [facility] METABOLIC PANEL (NA, K, CL, CO2, GLUCOSE, BUN, CREATININE, CA)2022-03-19 09:28:45 Test Item Value Reference Range Interpretation Comments NA (test code = 134 mmol/L 135-145 L 8766664643) K (test code = 3.9 mmol/L 3.5-5.0 7856468242) CL (test code = 102 mmol/L 98-108 0616545118) CO2 TOTAL (test code = 24 mmol/L 23-31 0309212114) AGAP (test code = 2-16 5965929658) BUN (test code = 15 mg/dL 7-23 8549450949) GLUCOSE (test code = 249 mg/dL 70-110 H 5261821728) CREATININE (test code = 0.57 mg/dL 0.50-1.04 9136897914) CALCIUM (test code = 8.2 mg/dL 8.6-10.6 L 5070419579) eGFR (test code = mL/min/1.73m2 8472888223) NISHA (test code = NISHA) Association of [...] tests). Lab Interpretation Abnormal (test code = 26837-1) [facility] GLUCOSE(AGE >30DAYS)2022-03-19 07:48:00 Test Item Value Reference Range Interpretation Comments POCT Glu (age>30days) (test code = 328 mg/dL 70-110 A 3342) Lab Interpretation (test code = Abnormal 80331-1) [facility] GLUCOSE(AGE >30DAYS)2022-03-19 07:48:00 Test Item Value Reference Range Interpretation Comments POCT Glu (age>30days) (test code = 328 mg/dL 70-110 A 3342) Lab Interpretation (test code = Abnormal 16086-6) [facility] GLUCOSE(AGE >30DAYS)2022-03-19 07:48:00 Test Item Value Reference Range Interpretation Comments POCT Glu (age>30days) (test code = 328 mg/dL 70-110 A 3342) Lab Interpretation (test code = Abnormal 87153-9) [facility] GLUCOSE(AGE >30DAYS)2022-03-19 07:48:00 Test Item Value Reference Range Interpretation Comments POCT Glu (age>30days) (test code = 328 mg/dL 70-110 A 3342) Lab Interpretation (test code = Abnormal 41249-6) [facility] GLUCOSE (AUTOMATED)2022-03-19 07:46:07 Test Item Value Reference Range Interpretation Comments POCT GLU (test code = 4742734736) 328 mg/dL 70-110 H Lab Interpretation (test code = Abnormal 39243-2) [facility] GLUCOSE (AUTOMATED)2022-03-19 07:46:07 Test Item Value Reference Range Interpretation Comments POCT GLU (test code = 7948122479) 328 mg/dL 70-110 H Lab Interpretation (test code = Abnormal 36241-8) [facility] GLUCOSE (AUTOMATED)2022-03-19 07:46:07 Test Item Value Reference Range Interpretation Comments POCT GLU (test code = 3837137261) 328 mg/dL 70-110 H Lab Interpretation (test code = Abnormal 41840-2) [facility]. METABOLIC PANEL ([id number])2022-03-19 06:53:44 Test Item Value Reference Range Interpretation Comments NA (test code = 129 mmol/L 135-145 L 0235949688) K (test code = 4.8 mmol/L 3.5-5.0 Slight 3790039181) hemolysis CL (test code = 91 mmol/L 98-108 L 3774971038) CO2 TOTAL (test code 20 mmol/L 23-31 L = 2192844452) AGAP (test code = 2-16 H 9871821192) BUN (test code = 17 mg/dL 7-23 Slight 8401965169) hemolysis GLUCOSE (test code = 602 mg/dL 70-110 HH 5873723839) CREATININE (test code 0.67 mg/dL 0.50-1.04 = 5868532837) TOTAL BILI (test code 1.1 mg/dL 0.1-1.1 = 3992743323) CALCIUM (test code = 9.4 mg/dL 8.6-10.6 4846097049) T PROTEIN (test code 8.0 g/dL 6.3-8.2 = 7420528161) ALBUMIN (test code = 4.4 g/dL 3.5-5.0 8067561577) ALK PHOS (test code = 182 U/L 34-122 H Slight 5613120710) hemolysis ALTv (test code = 16 U/L 5-35 1742-6) AST(SGOT) (test code 20 U/L 13-40 Slight = 2201051731) hemolysis eGFR (test code = mL/min/1.73m2 3135537918) NISHA (test code = NISHA) Association of Glomerular Filtration Rate (GFR) and Staging of Kidney Disease* + -----+ --------+ +| GFR (mL/min/1.73 m2) ?| With Kidney Damage ?| ?Without Kidney Damage+ +------- +---- --+| ?>90 ?| ?Stage one ?| ? Normal ?+ ------+ ---------+--------- +| ?60-89 ?| ?Stage two ?| ? Decreased GFR ? + -----+ --------+ +| ?30-59 ?| ?Stage three ?| ? Stage three ? + -----+ --------+ +| ?15-29 ?| ?Stage four ? | ? Stage four ?+ ------+ ---------+--------- +| ?<15 (or dialysis) ? ?| ?Stage five ? | ? Stage five ?+ ------+ ---------+--------- + *Each stage assumes the associated GFR level [...] tests). Lab Interpretation Abnormal (test code = 43743-0) [facility]. METABOLIC PANEL ([id number])2022-03-19 06:53:44 Test Item Value Reference Range Interpretation Comments NA (test code = 129 mmol/L 135-145 L 9373020325) K (test code = 4.8 mmol/L 3.5-5.0 Slight 5379014025) hemolysis CL (test code = 91 mmol/L 98-108 L 6794743393) CO2 TOTAL (test code 20 mmol/L 23-31 L = 6611084589) AGAP (test code = 2-16 H 6931897396) BUN (test code = 17 mg/dL 7-23 Slight 7663782462) hemolysis GLUCOSE (test code = 602 mg/dL 70-110 HH 8490250763) CREATININE (test code 0.67 mg/dL 0.50-1.04 = 5564722221) TOTAL BILI (test code 1.1 mg/dL 0.1-1.1 = 2080981372) CALCIUM (test code = 9.4 mg/dL 8.6-10.6 0616899852) T PROTEIN (test code 8.0 g/dL 6.3-8.2 = 5668439250) ALBUMIN (test code = 4.4 g/dL 3.5-5.0 2111082403) ALK PHOS (test code = 182 U/L 34-122 H Slight 3368831965) hemolysis ALTv (test code = 16 U/L 5-35 1742-6) AST(SGOT) (test code 20 U/L 13-40 Slight = 7475623069) hemolysis eGFR (test code = mL/min/1.73m2 4000516440) NISHA (test code = NISHA) Association of Glomerular Filtration Rate (GFR) and Staging of Kidney Disease* + -----+ --------+ +| GFR (mL/min/1.73 m2) ?| With Kidney Damage ?| ?Without Kidney Damage+ +------- +---- --+| ?>90 ?| ?Stage one ?| ? Normal ?+ ------+ ---------+--------- +| ?60-89 ?| ?Stage two ?| ? Decreased GFR ? + -----+ --------+ +| ?30-59 ?| ?Stage three ?| ? Stage three ? + -----+ --------+ +| ?15-29 ?| ?Stage four ? | ? Stage four ?+ ------+ ---------+--------- +| ?<15 (or dialysis) ? ?| ?Stage five ? | ? Stage five ?+ ------+ ---------+--------- + *Each stage assumes the associated GFR level [...] tests). Lab Interpretation Abnormal (test code = 22555-4) [facility]. METABOLIC PANEL ([id number])2022-03-19 06:53:44 Test Item Value Reference Range Interpretation Comments NA (test code = 129 mmol/L 135-145 L 6269904813) K (test code = 4.8 mmol/L 3.5-5.0 Slight 9078204693) hemolysis CL (test code = 91 mmol/L 98-108 L 7595758928) CO2 TOTAL (test code 20 mmol/L 23-31 L = 3266779804) AGAP (test code = 2-16 H 6979667112) BUN (test code = 17 mg/dL 7-23 Slight 1936978324) hemolysis GLUCOSE (test code = 602 mg/dL 70-110 HH 8737797373) CREATININE (test code 0.67 mg/dL 0.50-1.04 = 5864735161) TOTAL BILI (test code 1.1 mg/dL 0.1-1.1 = 8978690546) CALCIUM (test code = 9.4 mg/dL 8.6-10.6 9443967193) T PROTEIN (test code 8.0 g/dL 6.3-8.2 = 4839666178) ALBUMIN (test code = 4.4 g/dL 3.5-5.0 4133914941) ALK PHOS (test code = 182 U/L 34-122 H Slight 0122517118) hemolysis ALTv (test code = 16 U/L 5-35 1742-6) AST(SGOT) (test code 20 U/L 13-40 Slight = 0859126854) hemolysis eGFR (test code = mL/min/1.73m2 3119125853) NISHA (test code = NISHA) Association of Glomerular Filtration Rate (GFR) and Staging of Kidney Disease* + -----+ --------+ +| GFR (mL/min/1.73 m2) ?| With Kidney Damage ?| ?Without Kidney Damage+ +------- +---- --+| ?>90 ?| ?Stage one ?| ? Normal ?+ ------+ ---------+--------- +| ?60-89 ?| ?Stage two ?| ? Decreased GFR ? + -----+ --------+ +| ?30-59 ?| ?Stage three ?| ? Stage three ? + -----+ --------+ +| ?15-29 ?| ?Stage four ? | ? Stage four ?+ ------+ ---------+--------- +| ?<15 (or dialysis) ? ?| ?Stage five ? | ? Stage five ?+ ------+ ---------+--------- + *Each stage assumes the associated GFR level [...] tests). Lab Interpretation Abnormal (test code = 21933-1) [facility] WITH [id number] 06:28:00 Test Item Value Reference Range Interpretation Comments WBC (test code = See_Comment [Automated 0006-2) message] The sy stem which generated this result transmitted reference range : 4.30 - 11.10 10*3/?L. The reference range was not used to interpret this result as normal/abnormal . RBC (test code = See_Comment [Automated 939-8) message] The sy stem which generated this result transmitted reference range : 3.93 - 5.25 10*6/?L. The reference range was not used to interpret this result as normal/abnormal . HGB (test code = 15.8 g/dL 11.6-15.0 H 718-7) HCT (test code = 43.2 % 35.7-45.2 4544-3) MCV (test code = 83.4 fL 80.6-95.5 787-2) MCH (test code = 30.5 pg 25.9-32.8 785-6) MCHC (test code = 36.6 g/dL 31.6-35.1 H 786-4) RDW-SD (test code = 36.5 fL 39.0-49.9 L 49959-4) RDW-CV (test code = 11.9 % 12.0-15.5 L 788-0) PLT (test code = See_Comment H [Automated 777-3) message] The sy stem which generated this result transmitted reference range : 166 - 358 10*3/ ?L. The reference r chelsie was not used to interpret this result as normal/abnormal . MPV (test code = 10.4 fL 9.5-12.9 97987-7) NRBC/100 WBC (test See_Comment [Automat ed code = 9075384447) message] The system which generated this result transmitted reference range : 0.0 - 10.0 /100 WBCs. The refer ence range was not u sed to interpret th is result as normal/abnormal . NRBC x10^3 (test code See_Comment [Auto mated = 0583536136) message] The s ystem which generated this result transmitted reference range : 10*3/?L. The reference range was not used to interpret this result as normal/abnormal . GRAN MAT (NEUT) % 68.3 % (test code = 770-8) IMM GRAN % (test code 0.50 % = 7553418805) LYMPH % (test code = 23.5 % 736-9) MONO % (test code = 6.2 % 5905-5) EOS % (test code = 0.8 % 713-8) BASO % (test code = 0.7 % 706-2) GRAN MAT x10^3(ANC) 6.85 10*3/uL 1.88-7.09 (test code = 9413162201) IMM GRAN x10^3 (test 0.05 10*3/uL 0.00-0.06 code = 8816634499) LYMPH x10^3 (test code 2.36 10*3/uL 1.32-3.29 = 731-0) MONO x10^3 (test code 0.62 10*3/uL 0.33-0.92 = 742-7) EOS x10^3 (test code = 0.08 10*3/uL 0.03-0.39 711-2) BASO x10^3 (test code 0.07 10*3/uL 0.01-0.07 = 704-7) Lab Interpretation Abnormal (test code = 85699-8) [facility] WITH [id number] 06:28:00 Test Item Value Reference Range Interpretation Comments [...] as normal/abnormal . HGB (test code = 15.8 g/dL 11.6-15.0 H 718-7) HCT (test code = 43.2 % 35.7-45.2 4544-3) MCV (test code = 83.4 fL 80.6-95.5 787-2) MCH (test code = 30.5 pg 25.9-32.8 785-6) MCHC (test code = 36.6 g/dL 31.6-35.1 H 786-4) RDW-SD (test code = 36.5 fL 39.0-49.9 L 65425-5) RDW-CV (test code = 11.9 % 12.0-15.5 L 788-0) PLT (test code = See_Comment H [Automated 777-3) message] The sy stem which generated this result transmitted reference range : 166 - 358 10*3/ ?L. The reference r chelsie was not used to interpret this result as normal/abnormal . MPV (test code = 10.4 fL 9.5-12.9 66360-2) NRBC/100 WBC (test See_Comment [Automat ed code = 7689311370) message] The system which generated this result transmitted reference range : 0.0 - 10.0 /100 WBCs. The refer ence range was not u sed to interpret th is result as normal/abnormal . NRBC x10^3 (test code See_Comment [Auto mated = 4194896009) message] The s ystem which generated this result transmitted reference range : 10*3/?L. The reference range was not used to interpret this result as normal/abnormal . GRAN MAT (NEUT) % 68.3 % (test code = 770-8) IMM GRAN % (test code 0.50 % = 9960335332) LYMPH % (test code = 23.5 % 736-9) MONO % (test code = 6.2 % 5905-5) EOS % (test code = 0.8 % 713-8) BASO % (test code = 0.7 % 706-2) GRAN MAT x10^3(ANC) 6.85 10*3/uL 1.88-7.09 (test code = 4419931087) IMM GRAN x10^3 (test 0.05 10*3/uL 0.00-0.06 code = 5649824548) LYMPH x10^3 (test code 2.36 10*3/uL 1.32-3.29 = 731-0) MONO x10^3 (test code 0.62 10*3/uL 0.33-0.92 = 742-7) EOS x10^3 (test code = 0.08 10*3/uL 0.03-0.39 711-2) BASO x10^3 (test code 0.07 10*3/uL 0.01-0.07 = 704-7) Lab Interpretation Abnormal (test code = 75221-2) [facility] WITH [id number] 06:28:00 Test Item Value Reference Range Interpretation Comments WBC (test code = See_Comment [Automated 5290-2) message] The sy stem which generated this [...] as normal/abnormal . HGB (test code = 15.8 g/dL 11.6-15.0 H 718-7) HCT (test code = 43.2 % 35.7-45.2 4544-3) MCV (test code = 83.4 fL 80.6-95.5 787-2) MCH (test code = 30.5 pg 25.9-32.8 785-6) MCHC (test code = 36.6 g/dL 31.6-35.1 H 786-4) RDW-SD (test code = 36.5 fL 39.0-49.9 L 98494-6) RDW-CV (test code = 11.9 % 12.0-15.5 L 788-0) PLT (test code = See_Comment H [Automated 777-3) message] The sy stem which generated this result transmitted reference range : 166 - 358 10*3/ ?L. The reference r chelsie was not used to interpret this result as normal/abnormal . MPV (test code = 10.4 fL 9.5-12.9 69102-1) NRBC/100 WBC (test See_Comment [Automat ed code = 4239336049) message] The system which generated this result transmitted reference range : 0.0 - 10.0 /100 WBCs. The refer ence range was not u sed to interpret th is result as normal/abnormal . NRBC x10^3 (test code See_Comment [Auto mated = 4037944345) message] The s ystem which generated this result transmitted reference range : 10*3/?L. The reference range was not used to interpret this result as normal/abnormal . GRAN MAT (NEUT) % 68.3 % (test code = 770-8) IMM GRAN % (test code 0.50 % = 8349123398) LYMPH % (test code = 23.5 % 736-9) MONO % (test code = 6.2 % 5905-5) EOS % (test code = 0.8 % 713-8) BASO % (test code = 0.7 % 706-2) GRAN MAT x10^3(ANC) 6.85 10*3/uL 1.88-7.09 (test code = 8427219869) IMM GRAN x10^3 (test 0.05 10*3/uL 0.00-0.06 code = 0010896416) LYMPH x10^3 (test code 2.36 10*3/uL 1.32-3.29 = 731-0) MONO x10^3 (test code 0.62 10*3/uL 0.33-0.92 = 742-7) EOS x10^3 (test code = 0.08 10*3/uL 0.03-0.39 711-2) BASO x10^3 (test code 0.07 10*3/uL 0.01-0.07 = 704-7) Lab Interpretation Abnormal (test code = 13726-4) [facility] GLUCOSE (AUTOMATED)2022-03-19 06:15:05 Test Item Value Reference Range Interpretation Comments POCT GLU (test code = 4123306725) 593 mg/dL 70-110 HH Lab Interpretation (test code = Abnormal 16417-6) [facility] GLUCOSE (AUTOMATED)2022-03-19 06:15:05 Test Item Value Reference Range Interpretation Comments POCT GLU (test code = 1035607988) 593 mg/dL 70-110 HH Lab Interpretation (test code = Abnormal 87304-9) [facility] GLUCOSE (AUTOMATED)2022-03-19 06:15:05 Test Item Value Reference Range Interpretation Comments POCT GLU (test code = 4744363438) 593 mg/dL 70-110 HH Lab Interpretation (test code = Abnormal 85625-9) [facility] GLUCOSE(AGE >30DAYS)2022-03-19 06:15:00 Test Item Value Reference Range Interpretation Comments POCT Glu (age>30days) (test code = 593 mg/dL 70-110 A 3342) Lab Interpretation (test code = Abnormal 49120-3) [facility] GLUCOSE(AGE >30DAYS)2022-03-19 06:15:00 Test Item Value Reference Range Interpretation Comments POCT Glu (age>30days) (test code = 593 mg/dL 70-110 A 3342) Lab Interpretation (test code = Abnormal 97461-4) [facility] GLUCOSE(AGE >30DAYS)2022-03-19 06:15:00 Test Item Value Reference Range Interpretation Comments POCT Glu (age>30days) (test code = 593 mg/dL 70-110 A 3342) Lab Interpretation (test code = Abnormal 67627-6) [facility] HEMOGLOBIN A1C [id number] 21:05:00 Test Item Value Reference Range Interpretation Comments POCT HBA1C (test code = 4548-4) 14 % 4-6 A Lab Interpretation (test code = Abnormal 76031-1) [facility] HEMOGLOBIN A1C [id number] 21:05:00 Test Item Value Reference Range Interpretation Comments POCT HBA1C (test code = 4548-4) 14 % 4-6 A Lab Interpretation (test code = Abnormal 22741-6) [facility] HEMOGLOBIN A1C [id number] 21:05:00 Test Item Value Reference Range Interpretation Comments POCT HBA1C (test code = 4548-4) 14 % 4-6 A Lab Interpretation (test code = Abnormal 65427-1) [facility]"
[2022-04-05 14:31] VITALS: BMI 22.0
[2022-04-05] MEDS ORDERED: ACETAMINOPHEN 500 MG TAB PO PRN (14:44)
[2022-04-05] MEDS ORDERED: MELATONIN 3 MG TABLET PO PRN (14:45)
[2022-04-05] MEDS ORDERED: DOCUSATE NA/SENNA CONC 1 TAB PO PRN (14:46)
[2022-04-05] MEDS ORDERED: GLUCAGON 1 MG/VIAL IM PRN ×2 (14:47→15:19)
[2022-04-05] MEDS ORDERED: D10W 250 ML BAG IV PRN ×2 (15:07→15:39)
[2022-04-05] MEDS ORDERED: OZEMPIC 0.25 MG SQ SCH (15:30)
[2022-04-05] MEDS: INSULIN -REGULAR HUMAN 50 UNIT/0.5 ML ML SQ SCH ×2 (16:30→20:43)
[2022-04-05] MEDS: INSULIN 70/30 100 UNITS/ML SQ SCH (16:30)
[2022-04-05 16:50] LABS: Specific Gravity 1.014 (1.005-1.030); Urine Bilirubin NEGATIVE (Negative); Urine Blood Negative (Negative); Urine Clarity Clear (Clear); Urine Color Light-Yellow (Yellow); Urine Crystals Unidentified Few /HPF (None Seen); Urine Glucose NEGATIVE (Negative); Urine Protein NEGATIVE (Negative); Urine RBC <5 /HPF (None Seen); Urine Urobilinogen Normal (Normal); Urine pH 5.5 (5.0-7.0)
[2022-04-05] MEDS: ENOXAPARIN 30 MG/0.3 ML SQ SCH (17:07)
[2022-04-05] MEDS: HYDROCODONE/APAP 5/325 MG TAB PO PRN ×2 (17:46→22:33)
[2022-04-05] MEDS: BACLOFEN 10 MG TAB PO SCH (18:15)
[2022-04-05] MEDS ORDERED: NITROGLYCERIN 0.4 MG/TAB SL PRN (19:28)
[2022-04-05] MEDS ORDERED: POLYETHYL GLY 3350 17 GM/DOSE PO PRN (19:29)
[2022-04-05] MEDS: ATORVASTATIN 80 MG TAB PO SCH (20:21)
[2022-04-05] MEDS: MIRTAZAPINE 15 MG TAB PO SCH (20:22)
[2022-04-05] MEDS: GABAPENTIN 400 MG CAP PO SCH (20:22)
[2022-04-05] MEDS: DOCUSATE NA 100 MG CAP PO SCH (20:25)
--- NOTE | 2022-04-06 02:16 | HP ---
Date of Admission: 04/05/2022 Drbk-lp-lcvj visit. Chief Complaint: Left yhveu-zqo-rlrg amputation. History Of Present Illness: Ms. Shah is a 51-year-old right-handed patient with history of poorly controlled diabetes mellitus who had a prior right hykpg-qun-qabe amputation and is now sta tus post left tamhv-ykj-kihz amputation. She initially went to [facility] on March 19 with pr ogressive pain in the left middle toe that was present for at least a month. She was evaluated and f ound to have redness, swelling, pain, and was given antibiotics, which she took for a few weeks, but the symptoms did not improve. As a result she had progressive infections, which led to gangrenous ch anges and as a result of that, Vascular Surgery eventually performed the left zceid-lkv-fxhp amputati on on March 29, 2022. As noted, she had uncontrolled diabetes mellitus in addition to hypomagnesem ia, significant pain, acute blood loss with chronic anemia, congestive heart failure, and at this poi nt, is unable to function independently due to bilateral yfall-szl-csgt amputations. She requires on going medical management of her multiple medical conditions that are uncontrolled and she has signifi cant pain including phantom limb in the left lower extremity and now would require inpatient rehabili tation. This is a necessary and appropriate inpatient rehabilitation that requires aggressive medica l management. Past Medical And Surgical History: Coronary artery disease status post coronary artery bypass grafti ng with stent placement, peripheral artery disease, hypertension, dyslipidemia, congestive heart fail ure, prior stroke, depression, diabetes mellitus, gastroesophageal reflux disease, seizures, anxiety, migraine, osteomyelitis, right eye retinal detachment, tubal ligation, , and chronic right above-knee amputation. Family History: Noncontributory. Social History: No recent alcohol, tobacco, or IV drug use. The patient does have family involved i n her care. Allergies: ADHESIVE TAPE, TORADOL, AND TRAMADOL. Current Medications: Tylenol Extra Strength 500 mg every 4 hours, [place] 5/325 every 4 hours as neede d, aspirin 81 mg daily, Lipitor 80 mg at bedtime, baclofen 5 mg twice daily, Plavix 75 mg daily, Cola ce 100 mg twice daily, Lovenox 30 mg subcutaneously daily, Zetia 10 mg daily, gabapentin 800 mg 3 yohana es daily, melatonin 3 mg at bedtime, Remeron 15 mg at bedtime as needed, nitroglycerin 0.4 mg subcuta neous every 2-4 hours as needed, Zofran 4 mg every 8 hours, and Senokot-S 2 at bedtime. Laboratory Studies: White blood cell count 8.2, hemoglobin 8.2, hematocrit 24. Sodium 137, potassiu m 4.2, glucose 119, BUN 21, creatinine 0.86, calcium 8.3, magnesium 1.4. Glucose is also up to 166. X-ray and Imaging: X-rays of her left foot and toe, now amputated. Those x-rays did show a nondispl aced fracture of the 5th metatarsal, posterior calcaneal spur, left popliteal occlusion, but again jud nolasco is status post the left lnbel-vrf-harm amputation. Review of Systems: She reports significant pain at the surgical site, some phantom limb pain as well. She has had no my algias otherwise. No arthralgias. No rash. No headache. No psychiatric issues. She did have some constipation that is relieved. She has no nausea, vomiting, or other positives on a 10 point system s review. Physical Examination: Vital Signs: Blood pressure 107/56, pulse of 107, respiratory rate 16, temperature 97.4, oxygen satu ration 96%. Weight 128 pounds, height 5 feet 4 inches, BMI 22.1. General: Ms. Shah is resting in bed comfortably. She is in no significant distress. HEENT: She is normocephalic, atraumatic. Sclerae anicteric. Oropharynx is moist and pink. Neck: Supple. Chest: Clear. Extremities: In the upper only; no clubbing, cyanosis, or edema and she has bilateral jifgc-wnx-mcxf amputations. Good hemostasis on the left skjam-ivq-okmx surgical amputation site. Current level of functioning: Currently she requires moderate assistance for bed mobilization, trans fers with moderate assistance. She did self propel her wheelchair 250 feet with contact guard assist ance. Rehabilitation Assessment And Plan: Ms. Shah is a 51-year-old patient status post acute left abov e-the-knee amputation from bone infection. She has a chronic right kjzll-ive-khjp amputation. She h as uncontrolled diabetes, uncontrolled hypertension, congestive heart failure, prior stroke, depressi on, gastroesophageal reflux disease, history of seizures, migraine, and has significant pain along wi th anemia. Please note her etiologic diagnosis is shane amputation of left lower extremity above the k nee and also her impairment group as well bilateral lower limb above the knee amputation 05.5. Active comorbid conditions: Uncontrolled diabetes mellitus, significant pain, anemia, hypomagnesemia , and congestive heart failure. She will have those conditions addressed as above with medications a s noted. Pain managed by medications as noted above. Anemia managed by protein and iron supplementa tion. Constipation will be addressed as she has narcotic medications. Blood pressures will be manag ed carefully. She has congestive heart failure; however, given the loss of both lower extremities th is is a less likely complication at this point. Impact of comorbidities: As noted, she does have uncontrolled diabetes mellitus. Blood sugars will be carefully addressed. Hypertension, blood pressures will be managed appropriately and in terms of her therapy, she at this point, is capable of spending up to 180 hours of therapy 5 of 7 days. She w ill have aggressive physical and occupational therapy to help her with activities of daily living; to dress upper and lower body; to perform mobilization using sliding board from bed to chair, wheelchai r to shower and she will mobilize household distances using a wheelchair. She is unable to ambulate. She does have a good understanding of her physical and occupational therapy and she will benefit fr om an interdisciplinary approach to her physical therapy. As needed, she will have wound care servic es, nutritional services, along with the medical management on a daily basis and then have skilled nu rsing throughout. Physical and occupational therapy as noted will be carried out. Barriers to discharge: She has significant pain, but that will be addressed by adjusting medications including neuromodulators. Congestive heart failure, again addressed. Hypertension and anemia, aga in addressed. Length of stay is expected to be about 10-12 days. Disposition is expected to be home . Prognosis at this point, is good. Rehabilitation goals: As noted, she should be able to transfer independently, perform upper body mac ssing independently, mobilize with a wheelchair independently and have all of her medical conditions addressed and be stable for discharge. I acknowledge that I personally examined Ms. hSah on her admission to the rehabilitation unit with in about 3 hours and she is able to tolerate the course of treatment as indicated and in the time as allotted. An individualized plan of care for her will be completed by day 4 of her hospital stay, ba sed on the preadmission screen, history and physical, and therapy evaluations. JORDYN Voice ID: [id number]
[2022-04-06 05:50] LABS: Albumin 1.9 g/dL (3.4-5.0); Magnesium 1.5 mg/dL (1.8-2.4); Potassium 4.2 mmol/L (3.5-5.1); Prealbumin 10.2 mg/dL (20-40)
[2022-04-06 05:52] LABS: Absolute Lymphocytes (CBC) 1.8 K/uL (0.7-4.9); Hematocrit 23.8 % (36.0-45.0); Lymphocytes % 23.5 % (15.3-44.8); MPV 7.2 fL (7.6-11.3); RBC Red Blood Cell Count 2.73 M/uL (3.86-4.86)
[2022-04-06] MEDS ORDERED: PANTOPRAZOLE 40MG TABLET PO SCH (06:30)
[2022-04-06] MEDS: INSULIN 70/30 100 UNITS/ML SQ SCH ×2 (07:30→16:29)
[2022-04-06] MEDS ORDERED: BISACODYL 10 MG RECTAL SUPP PR PRN (07:44)
[2022-04-06] MEDS: ASPIRIN EC 81 MG TAB PO SCH (08:34)
[2022-04-06] MEDS: PANTOPRAZOLE 40MG TABLET PO SCH (08:34)
[2022-04-06] MEDS: GABAPENTIN 400 MG CAP PO SCH ×3 (08:34→19:24)
[2022-04-06] MEDS: EZETIMIBE 10 MG TAB PO SCH (08:34)
[2022-04-06] MEDS: DOCUSATE NA 100 MG CAP PO SCH ×2 (08:34→19:23)
[2022-04-06] MEDS: BACLOFEN 10 MG TAB PO SCH ×2 (08:35→19:23)
[2022-04-06] MEDS: CLOPIDOGREL 75 MG TABLET PO SCH (08:35)
[2022-04-06] MEDS: INSULIN -REGULAR HUMAN 50 UNIT/0.5 ML ML SQ SCH ×4 (09:13→20:12)
[2022-04-06] MEDS: HYDROCODONE/APAP 5/325 MG TAB PO PRN ×2 (12:01→19:26)
[2022-04-06] MEDS ORDERED: INSULIN 70/30 100 UNITS/ML SQ SCH (16:30)
[2022-04-06] MEDS: ENOXAPARIN 30 MG/0.3 ML SQ SCH (16:46)
[2022-04-06] MEDS ORDERED: MAGNESIUM OXIDE 400 MG TAB PO ONE (17:00)
[2022-04-06] MEDS ORDERED: FUROSEMIDE 20 MG TABLET PO PRN (19:06)
[2022-04-06] MEDS: FERROUS SULFATE 325 MG TAB PO SCH (19:23)
[2022-04-06] MEDS: MIRTAZAPINE 15 MG TAB PO SCH (19:23)
[2022-04-06] MEDS: ATORVASTATIN 80 MG TAB PO SCH (19:24)
[2022-04-06] MEDS: MAGNESIUM OXIDE 400 MG TAB PO SCH (19:25)
[2022-04-07] MEDS: HYDROCODONE/APAP 5/325 MG TAB PO PRN (00:24)
--- NOTE | 2022-04-07 00:45 | PN ---
A srqb-kv-nwro progress note. Subjective: Ms. Shah denies any significant pain of the left lower extremity especially when she receives her multiple medications including narcotic and neuromodulators. She reports no fevers or c hills. No myalgias and no arthralgias. No headache. No rash. Physical Examination: Extremities: Left vbrra-klp-ghst amputation stump has good hemostasis. She has a chronic right abov e-the-knee amputation that is well healed. Lungs: Clear to auscultation. Heart: Regular. Laboratory Studies: White blood cell count 7.7, hemoglobin 8.4, platelets 618. Chemistries: Sodium 139, potassium 4.2, chloride 110, BUN 16, creatinine 0.96. Blood sugars ranged from 77 up to 344. Prealbumin 10.2, albumin 1.9. Urinalysis shows 75 esterase, trace budding yeast. COVID testing is n egative. X-ray Imaging: No x-ray imaging. Medications: Extra-strength Tylenol 500 mg every 4 hours, [place] 5/325 every 4 hours as needed, aspir in 81 mg daily, Lipitor 80 mg at bedtime, baclofen 5 mg twice daily, Dulcolax 10 mg per rectum as nee ded for constipation, Plavix 75 mg daily, Colace 100 mg twice daily, Lovenox 30 mg subcutaneously koki ly, Zetia 100 mg daily, ferrous sulfate 325 mg twice daily, Lasix 20 mg daily, gabapentin 800 mg 3 ti mes daily, Novolin insulin 70/30 with 20 units twice daily at meals, mag oxide 400 mg twice daily, me latonin 3 mg at bedtime, mirtazapine 15 mg at bedtime as needed, Nitrostat 0.4 mg sublingual as neede d, Zofran 4 mg every 8 hours as needed, Protonix 40 mg daily, and Senokot-S 2 tablets at bedtime. Current Functional Status: Ms. Shah is able to mobilize wheelchair to 250 feet with bilateral upp er extremities with standby assistance. She does require cuing for safety. She also propelled the w heelchair with the therapist in tow almost 200-150 feet. She does have some difficulty maintaining h er upright position given she has lost both lower extremities well above the knee. Progress toward rehabilitation goals: She is making good progress so far with physical and occupatio nal therapy goals of becoming modified independent with transfers, mobilization and upper body dressi ng. Assessment: Ms. Shah is a 51-year-old patient with bilateral amputations and acute left above-the -knee and chronic right bovxf-qks-fffu amputation. She has diabetes mellitus that is brittle and had some wide range of blood sugars with her medication regimen being adjusted. She has hypertension wi th her medications being adjusted to bring into controlled blood pressures. Also gastroesophageal re flux disease reflux, on Protonix; insomnia, on Remeron and melatonin; nausea treated with Zofran; sig nificant anemia with ferrous sulfate and malnutrition with protein supplementation. She has muscle s pasm treated with baclofen. Dyslipidemia, treated with Lipitor. Stroke risk treated with aspirin an d Plavix. DVT risk, which is low and she is on low dose of Lovenox. In addition, her significant pa in has been managed with [place] and gabapentin. Barriers towards her rehabilitation do include the brittle diabetes, for which her insulin and medica l options are being adjusted. Blood pressures are under better control. She has significant pain. She has constipation. She has malnutrition and anemia, which are addressed as noted above. LB/MODL Voice ID: [id number] Report ID: [id number]
[2022-04-07] MEDS: GABAPENTIN 400 MG CAP PO SCH ×3 (08:43→20:45)
[2022-04-07] MEDS: PANTOPRAZOLE 40MG TABLET PO SCH (08:43)
[2022-04-07] MEDS: CLOPIDOGREL 75 MG TABLET PO SCH (08:44)
[2022-04-07] MEDS: FERROUS SULFATE 325 MG TAB PO SCH ×2 (08:44→20:45)
[2022-04-07] MEDS: ASPIRIN EC 81 MG TAB PO SCH (08:44)
[2022-04-07] MEDS: EZETIMIBE 10 MG TAB PO SCH (08:44)
[2022-04-07] MEDS: BACLOFEN 10 MG TAB PO SCH ×2 (08:45→20:46)
[2022-04-07] MEDS: DOCUSATE NA 100 MG CAP PO SCH ×2 (08:45→20:00)
[2022-04-07] MEDS: MAGNESIUM OXIDE 400 MG TAB PO SCH ×2 (08:48→20:45)
[2022-04-07] MEDS: INSULIN 70/30 100 UNITS/ML SQ SCH ×2 (09:07→17:44)
[2022-04-07] MEDS: INSULIN -REGULAR HUMAN 50 UNIT/0.5 ML ML SQ SCH ×4 (09:08→20:46)
[2022-04-07] MEDS ORDERED: FORMULATION-R RECTAL 57GM PR PRN (13:01)
[2022-04-07] MEDS: ENOXAPARIN 30 MG/0.3 ML SQ SCH (16:19)
[2022-04-07] MEDS: MIRTAZAPINE 15 MG TAB PO SCH (20:45)
[2022-04-07] MEDS: ATORVASTATIN 80 MG TAB PO SCH (20:45)
[2022-04-07] MEDS: DULOXETINE 30 MG CAP PO SCH (20:46)
--- NOTE | 2022-04-07 22:59 | PN ---
Subjective: Ms. Shah reports some pain of the left stump after her khhns-qnt-ivyq amputation was rubbing against the bed rail and she is on the bed. She did have constipation, but had a bowel movem ent today and that is better. Review of Systems: As noted, some left phantom limb pain and constipation. No other positives on the systems review. Objective: Vital Signs: Blood pressure 129/67, pulse of 108, respiratory rate 16, temperature 97.3, oxygen saturation 95%. Weight 128 pounds, height 5 feet 4 inches, BMI 22.1. General: Ms. Shah is wheeling herself around in the wheelchair. She is in no significant distres s. Neurologic: Upper body strength is symmetric at 4+/5 distally and 5/5 proximally. She has bilateral skxlj-sce-ohjp amputation and the left stump has good hemostasis. The right stump is well healed. Laboratory Studies: Yesterday blood work showed white blood cell count 7.7, hemoglobin 8.4. She is on iron and protein supplementation. Chemistries: Blood sugars ranged from 132-248. Urine cultures grew less than 10,000 colony-forming units. X-ray Imaging: None. Medications: Have not changed since yesterday. Still aspirin, Lipitor, [place] 5/325 every 4 hours, a nd baclofen. She is on stool softeners including Dulcolax as needed. Plavix 75 mg daily, Colace 100 mg twice daily, Lovenox 30 mg subcutaneously daily, Zetia 10 mg daily, ferrous sulfate 325 mg daily, Lasix 20 mg daily, gabapentin 800 mg 3 times daily, Remeron 15 mg at bedtime, melatonin 3 mg at bedt charisma as needed, magnesium oxide 400 mg twice daily, Senokot-S 2 at bedtime, Protonix 40 mg daily, Zofr an 4 mg every 8 hours as needed, and Nitrostat 0.4 mg subcutaneously for chest pain rated 4 to 6/10. Current Functional Status: Currently, she can perform supine to sit transfers independently. She mo bilized wheelchair 250 feet and 125 feet using bilateral upper extremities with standby assistance. Progress towards rehabilitation goals: She is making very good progress with rehabilitation goals to perform activities of daily living with independence and to mobilize a wheelchair with independence. Obviously she has no legs and is not ambulatory at this point. Assessment: Ms. Shah is a 51-year-old patient with an acute left artwm-goh-exai amputation and ch ronic right above-knee amputation. She has diabetes mellitus, which is brittle, but is being control led better and hypertension as well as malnutrition and anemia. Her comorbidities are managed with m edications as noted above. She is also followed by the speech pathologist, who is working on her imp roving attention, memory, and recall along with verbal communication including expression and compreh ension. Comorbidities that continue to impact rehabilitation process are significant pain in the lef t lower extremity at the stump site, constipation and brittle diabetes, but those are being aggressiv garett controlled. LB/MODL Voice ID: [id number] Report ID: [id number]
[2022-04-08 06:06] LABS: Absolute Lymphocytes (CBC) 1.8 K/uL (0.7-4.9); Hematocrit 24.8 % (36.0-45.0); MCV 86.3 fL (80-100); MPV 6.8 fL (7.6-11.3); RBC Red Blood Cell Count 2.88 M/uL (3.86-4.86)
[2022-04-08 06:17] LABS: Magnesium 1.7 mg/dL (1.8-2.4); Potassium 3.3 mmol/L (3.5-5.1)
--- NOTE | 2022-04-08 08:18 | P.RH.PN ---
Estimated Length of Stay: 14 Expected Discharge Date: 04/15/22 Discharge Disposition Plan: Home Family Support: Yes Vital Signs: Last Vital Signs Temp 97.0 F 04/08/22 07:11 Pulse 105 H 04/08/22 07:11 Resp 16 04/08/22 07:11 BP 128/69 04/08/22 07:11 Pulse Ox 98 04/08/22 07:11 Laboratory: Laboratory Last Values WBC 10.10 K/uL (4.3-10.9) 04/08/22 05:46 RBC 2.88 M/uL (3.86-4.86) L 04/08/22 05:46 Hgb 8.8 g/dL (12.0-15.0) L 04/08/22 05:46 Hct 24.8 % (36.0-45.0) L 04/08/22 05:46 MCV 86.3 fL (80-100) 04/08/22 05:46 MCH 30.6 pg (27.0-35.0) 04/08/22 05:46 MCHC 35.5 g/dL (32.0-36.0) 04/08/22 05:46 RDW 13.1 % (12.1-15.2) 04/08/22 05:46 Plt Count 705 K/uL (152-406) H 04/08/22 05:46 MPV 6.8 fL (7.6-11.3) L 04/08/22 05:46 Neutrophils % 69.2 % (41.7-73.7) 04/08/22 05:46 Lymphocytes % 18.0 % (15.3-44.8) 04/08/22 05:46 Monocytes % 8.9 % (3.3-12.3) 04/08/22 05:46 Eosinophils % 2.9 % (0-4.4) 04/08/22 05:46 Basophils % 1.0 % (0-1.3) 04/08/22 05:46 Absolute Neutrophils 7.0 K/uL (1.8-8.0) 04/08/22 05:46 Absolute Lymphocytes 1.8 K/uL (0.7-4.9) 04/08/22 05:46 Absolute Monocytes 0.9 K/uL (0.1-1.3) 04/08/22 05:46 Absolute Eosinophils 0.3 K/uL (0-0.5) 04/08/22 05:46 Absolute Basophils 0.1 K/uL (0-0.5) 04/08/22 05:46 Sodium 141 mmol/L (136-145) 04/08/22 05:46 Potassium 3.3 mmol/L (3.5-5.1) L 04/08/22 05:46 Chloride 110 mmol/L (98-107) H 04/08/22 05:46 Carbon Dioxide 26 mmol/L (21-32) 04/08/22 05:46 Anion Gap 8.3 mEq/L (5.0-15.0) 04/08/22 05:46 BUN 10 mg/dL (7-18) 04/08/22 05:46 Creatinine 0.69 mg/dL (0.55-1.3) 04/08/22 05:46 Est GFR (CKD-EPI) 106 ml/min (=/>90) 04/08/22 05:46 Glucose 211 mg/dL (74-106) H 04/08/22 05:46 POC Glucose 210 mg/dL (65-120) H 04/08/22 07:02 Calcium 7.7 mg/dL (8.5-10.1) L 04/08/22 05:46 Magnesium 1.7 mg/dL (1.8-2.4) L 04/08/22 05:46 NT-Pro-B Natriuret Pep 2739 pg/mL (<125) H 04/06/22 04:16 Albumin 1.9 g/dL (3.4-5.0) L 04/06/22 04:16 Prealbumin 10.2 mg/dL (20-40) L 04/06/22 04:16 Urine Color Light-yellow (Yellow) 04/05/22 16:00 Urine Clarity Clear (Clear) 04/05/22 16:00 Urine pH 5.5 (5.0-7.0) 04/05/22 16:00 Ur Specific [place] 1.014 (1.005-1.030) 04/05/22 16:00 Glucose (UA)(Auto) Negative (Negative) 04/05/22 16:00 Urine Ketones Negative (Negative) 04/05/22 16:00 Urine Blood Negative (Negative) 04/05/22 16:00 Urine Nitrite Negative (Negative) 04/05/22 16:00 Urine Bilirubin Negative (Negative) 04/05/22 16:00 Urine Urobilinogen Normal (Normal) 04/05/22 16:00 Ur Leukocyte Esterase 75 Lexie/uL (Negative) H 04/05/22 16:00 Urine RBC <5 /HPF (None Seen) 04/05/22 16:00 Urine WBC <5 /HPF (<5) 04/05/22 16:00 Ur Squamous Epith Cells <5 /HPF (None Seen) 04/05/22 16:00 Unidentified Crystals Few /HPF (None Seen) 04/05/22 16:00 Urine Yeast (Budding) Trace /HPF (None Seen) H 04/05/22 16:00 Urine Total Protein Negative (Negative) 04/05/22 16:00 SARS-CoV-2 Rap RNA(RT-PCR) Negative (NEGATIVE) 04/05/22 14:30 Weight: 128 lb 8 oz Wound Present: No Closed Surgical Incision Present: No Negative Pressure Wound Therapy Present: No Physician Update: He labs reviewed and are stable. Pain is managed with gabapentin and norcotic. She is at mild cognitive impairment level. Independent with bed mobility. Transfers at SBA. Independent with occasional transfers in the after noon with ADLs. She will require a wheelchair, and 3-in-1 for home. May be ready for discharged next Monday. Summary: Patient's care plan and nursing home goals have been reviewed and revised as necessary. Please see the Rehabilitation Signature page for all necessary signatures.
[2022-04-08] MEDS: PANTOPRAZOLE 40MG TABLET PO SCH (08:24)
[2022-04-08] MEDS: GABAPENTIN 400 MG CAP PO SCH ×3 (08:24→20:37)
[2022-04-08] MEDS: INSULIN 70/30 100 UNITS/ML SQ SCH ×2 (08:24→17:30)
[2022-04-08] MEDS: FERROUS SULFATE 325 MG TAB PO SCH ×2 (08:24→19:10)
[2022-04-08] MEDS: DOCUSATE NA 100 MG CAP PO SCH ×2 (08:25→19:09)
[2022-04-08] MEDS: CLOPIDOGREL 75 MG TABLET PO SCH (08:25)
[2022-04-08] MEDS: ASPIRIN EC 81 MG TAB PO SCH (08:25)
[2022-04-08] MEDS: BACLOFEN 10 MG TAB PO SCH ×2 (08:25→19:10)
[2022-04-08] MEDS: EZETIMIBE 10 MG TAB PO SCH (08:25)
[2022-04-08] MEDS: INSULIN -REGULAR HUMAN 50 UNIT/0.5 ML ML SQ SCH ×4 (08:29→20:38)
[2022-04-08] MEDS: MAGNESIUM OXIDE 400 MG TAB PO SCH ×3 (08:30→19:56)
[2022-04-08] MEDS: LOPERAMIDE HCL 2 MG CAPSULE PO PRN ×2 (09:16→14:05)
[2022-04-08] MEDS ORDERED: POTASSIUM CL SA 10 MEQ TAB PO ONE (11:12)
[2022-04-08] MEDS: ENOXAPARIN 30 MG/0.3 ML SQ SCH (17:46)
[2022-04-08] MEDS ORDERED: LOPERAMIDE HCL 2 MG CAPSULE PO PRN (18:09)
[2022-04-08] MEDS: HYDROCODONE/APAP 5/325 MG TAB PO PRN (19:08)
[2022-04-08] MEDS: AMINO ACIDS/PROTEIN HYDROLYS 30 ML LIQUID.PKT PO SCH (19:11)
[2022-04-08] MEDS: ONDANSETRON 4 MG (ODT) TAB PO PRN (19:52)
[2022-04-08] MEDS: ATORVASTATIN 80 MG TAB PO SCH (20:37)
[2022-04-08] MEDS: DULOXETINE 30 MG CAP PO SCH (20:37)
[2022-04-08] MEDS: MIRTAZAPINE 15 MG TAB PO SCH (20:38)
[2022-04-08] MEDS ORDERED: NA CHLORIDE 0.9% 1,000 ML IV SCH (21:00)
[2022-04-09 06:20] LABS: Absolute Lymphocytes (CBC) 1.4 K/uL (0.7-4.9); Hematocrit 25.7 % (36.0-45.0); Lymphocytes % 13.9 % (15.3-44.8); MCV 87.7 fL (80-100); MPV 6.8 fL (7.6-11.3); RBC Red Blood Cell Count 2.93 M/uL (3.86-4.86)
[2022-04-09 06:44] LABS: Bilirubin Direct 0.1 mg/dL (0-0.2); Bilirubin Total 0.4 mg/dL (0.2-1.0); Potassium 3.9 mmol/L (3.5-5.1); Protein, Total 6.7 g/dL (6.4-8.2)
[2022-04-09] MEDS: INSULIN -REGULAR HUMAN 50 UNIT/0.5 ML ML SQ SCH ×4 (07:09→19:43)
[2022-04-09] MEDS: PANTOPRAZOLE 40MG TABLET PO SCH (07:19)
[2022-04-09] MEDS: CLOPIDOGREL 75 MG TABLET PO SCH (07:28)
[2022-04-09] MEDS: POTASSIUM CL SA 10 MEQ TAB PO SCH (07:28)
[2022-04-09] MEDS: CALCIUM CARB 500MG/VIT D 200 IU TAB PO SCH (07:28)
[2022-04-09] MEDS: BACLOFEN 10 MG TAB PO SCH ×2 (07:28→19:30)
[2022-04-09] MEDS: INSULIN 70/30 100 UNITS/ML SQ SCH ×2 (07:29→16:51)
[2022-04-09] MEDS: FERROUS SULFATE 325 MG TAB PO SCH ×2 (07:29→19:29)
[2022-04-09] MEDS: ASPIRIN EC 81 MG TAB PO SCH (07:29)
[2022-04-09] MEDS: DOCUSATE NA 100 MG CAP PO SCH ×2 (07:30→19:29)
[2022-04-09] MEDS: GABAPENTIN 400 MG CAP PO SCH ×3 (07:31→19:29)
[2022-04-09] MEDS: AMINO ACIDS/PROTEIN HYDROLYS 30 ML LIQUID.PKT PO SCH ×2 (07:31→19:30)
[2022-04-09] MEDS: EZETIMIBE 10 MG TAB PO SCH (07:31)
[2022-04-09 12:35] LABS: C.diff Antigen/Toxin Ag neg : Tox neg (NEG : NEG)
[2022-04-09] MEDS ORDERED: MAGNESIUM SULFATE 1 gm IVPB 1 GM/100 ML BAG IV ONE (13:53)
[2022-04-09] MEDS: ONDANSETRON 4 MG (ODT) TAB PO PRN ×2 (14:52→19:53)
[2022-04-09] MEDS: ENOXAPARIN 30 MG/0.3 ML SQ SCH (16:27)
[2022-04-09] MEDS: DULOXETINE 30 MG CAP PO SCH (19:30)
[2022-04-09] MEDS: ATORVASTATIN 80 MG TAB PO SCH (19:30)
[2022-04-09] MEDS: MIRTAZAPINE 15 MG TAB PO SCH (19:30)
[2022-04-10] MEDS: INSULIN -REGULAR HUMAN 50 UNIT/0.5 ML ML SQ SCH ×4 (07:05→20:14)
[2022-04-10] MEDS: INSULIN 70/30 100 UNITS/ML SQ SCH ×3 (07:30→16:30)
[2022-04-10] MEDS: AMINO ACIDS/PROTEIN HYDROLYS 30 ML LIQUID.PKT PO SCH ×2 (08:00→19:31)
[2022-04-10] MEDS: PANTOPRAZOLE 40MG TABLET PO SCH (08:39)
[2022-04-10] MEDS: GABAPENTIN 400 MG CAP PO SCH ×3 (08:39→19:30)
[2022-04-10] MEDS: FERROUS SULFATE 325 MG TAB PO SCH ×2 (08:40→19:30)
[2022-04-10] MEDS: ASPIRIN EC 81 MG TAB PO SCH (08:40)
[2022-04-10] MEDS: EZETIMIBE 10 MG TAB PO SCH (08:40)
[2022-04-10] MEDS: DOCUSATE NA 100 MG CAP PO SCH ×2 (08:40→19:30)
[2022-04-10] MEDS: POTASSIUM CL SA 10 MEQ TAB PO SCH (08:40)
[2022-04-10] MEDS: CALCIUM CARB 500MG/VIT D 200 IU TAB PO SCH (08:41)
[2022-04-10] MEDS: CLOPIDOGREL 75 MG TABLET PO SCH (08:41)
[2022-04-10] MEDS: BACLOFEN 10 MG TAB PO SCH ×2 (08:41→19:31)
[2022-04-10] MEDS: ONDANSETRON 4 MG (ODT) TAB PO PRN (10:04)
[2022-04-10] MEDS: ENOXAPARIN 30 MG/0.3 ML SQ SCH (16:37)
[2022-04-10] MEDS: ATORVASTATIN 80 MG TAB PO SCH (19:30)
[2022-04-10] MEDS: DULOXETINE 30 MG CAP PO SCH (19:30)
[2022-04-10] MEDS: MIRTAZAPINE 15 MG TAB PO SCH (19:30)
[2022-04-11] MEDS: ONDANSETRON 4 MG (ODT) TAB PO PRN (04:18)
[2022-04-11] MEDS: HYDROCODONE/APAP 5/325 MG TAB PO PRN ×3 (06:20→15:37)
[2022-04-11] MEDS: PANTOPRAZOLE 40MG TABLET PO SCH (06:55)
[2022-04-11] MEDS: INSULIN -REGULAR HUMAN 50 UNIT/0.5 ML ML SQ SCH ×4 (07:30→21:00)
[2022-04-11] MEDS: AMINO ACIDS/PROTEIN HYDROLYS 30 ML LIQUID.PKT PO SCH ×2 (08:00→20:00)
[2022-04-11] MEDS: INSULIN 70/30 100 UNITS/ML SQ SCH ×2 (08:03→16:30)
[2022-04-11] MEDS: GABAPENTIN 400 MG CAP PO SCH ×3 (08:04→20:29)
[2022-04-11] MEDS: DOCUSATE NA 100 MG CAP PO SCH ×2 (08:05→20:00)
[2022-04-11] MEDS: BACLOFEN 10 MG TAB PO SCH ×2 (08:05→20:28)
[2022-04-11] MEDS: CALCIUM CARB 500MG/VIT D 200 IU TAB PO SCH (08:05)
[2022-04-11] MEDS: ASPIRIN EC 81 MG TAB PO SCH (08:05)
[2022-04-11] MEDS: CLOPIDOGREL 75 MG TABLET PO SCH (08:05)
[2022-04-11] MEDS: FERROUS SULFATE 325 MG TAB PO SCH ×2 (08:05→20:29)
[2022-04-11] MEDS: EZETIMIBE 10 MG TAB PO SCH (08:05)
[2022-04-11] MEDS: POTASSIUM CL SA 10 MEQ TAB PO SCH (08:06)
[2022-04-11] MEDS: MEGESTROL 40 MG TAB PO SCH (10:25)
[2022-04-11] MEDS: CYANOCOBALAMIN 1,000 MCG TAB PO SCH (10:26)
[2022-04-11] MEDS: ENOXAPARIN 30 MG/0.3 ML SQ SCH (16:48)
--- NOTE | 2022-04-11 17:03 | RAD REPORT ---
EXAM DESCRIPTION: RAD - Abdomen 1 View (KUB) - 04/11/2022 4:42 pm CLINICAL HISTORY: obstruction and gall stone Pain COMPARISON: No comparisons FINDINGS: The bowel gas pattern is non-obstructive. No evidence of free air or pneumatosis. Subtle c alcifications project over the right renal shadow. No significant bony findings. IMPRESSION: Suspected right nephrolithiasis.
[2022-04-11] MEDS ORDERED: NA CHLORIDE 0.9% 1,000 ML ONE (18:53)
[2022-04-11] MEDS ORDERED: NA CHLORIDE 0.9% 1,000 ML IV SCH (19:00)
[2022-04-11] MEDS: ATORVASTATIN 80 MG TAB PO SCH (20:29)
[2022-04-11] MEDS: DULOXETINE 30 MG CAP PO SCH (20:29)
[2022-04-11] MEDS: MIRTAZAPINE 15 MG TAB PO SCH (20:29)
[2022-04-12] MEDS: HYDROCODONE/APAP 5/325 MG TAB PO PRN ×2 (04:26→16:07)
[2022-04-12 05:04] LABS: Albumin 2.1 g/dL (3.4-5.0); Bilirubin Direct 0.1 mg/dL (0-0.2); Bilirubin Total 0.4 mg/dL (0.2-1.0); Potassium 3.9 mmol/L (3.5-5.1); Protein, Total 6.4 g/dL (6.4-8.2)
[2022-04-12] MEDS ORDERED: METOPROLOL XL 25 MG TAB PO SCH ×2 (06:00)
[2022-04-12] MEDS ORDERED: NA CHLORIDE 0.9% 1,000 ML IV SCH (06:18)
[2022-04-12] MEDS: PANTOPRAZOLE 40MG TABLET PO SCH (07:23)
[2022-04-12] MEDS: MEGESTROL 40 MG TAB PO SCH (07:24)
[2022-04-12] MEDS: INSULIN -REGULAR HUMAN 50 UNIT/0.5 ML ML SQ SCH ×4 (07:30→20:16)
[2022-04-12] MEDS: NA CHLORIDE 0.9% 1,000 ML IV SCH (07:35)
[2022-04-12] MEDS: INSULIN 70/30 100 UNITS/ML SQ SCH ×2 (07:57→17:07)
[2022-04-12] MEDS: ASPIRIN EC 81 MG TAB PO SCH (07:58)
[2022-04-12] MEDS: CLOPIDOGREL 75 MG TABLET PO SCH (07:58)
[2022-04-12] MEDS: FERROUS SULFATE 325 MG TAB PO SCH ×2 (07:58→19:54)
[2022-04-12] MEDS: GABAPENTIN 400 MG CAP PO SCH ×3 (07:58→19:54)
[2022-04-12] MEDS: DOCUSATE NA 100 MG CAP PO SCH ×2 (07:58→19:54)
[2022-04-12] MEDS: EZETIMIBE 10 MG TAB PO SCH (07:59)
[2022-04-12] MEDS: BACLOFEN 10 MG TAB PO SCH ×2 (07:59→19:54)
[2022-04-12] MEDS: CALCIUM CARB 500MG/VIT D 200 IU TAB PO SCH (07:59)
[2022-04-12] MEDS: CYANOCOBALAMIN 1,000 MCG TAB PO SCH (07:59)
[2022-04-12] MEDS: AMINO ACIDS/PROTEIN HYDROLYS 30 ML LIQUID.PKT PO SCH ×2 (08:00→19:55)
[2022-04-12] MEDS: METOPROLOL XL 25 MG TAB PO SCH (08:00)
[2022-04-12] MEDS: POTASSIUM CL SA 10 MEQ TAB PO SCH (09:00)
[2022-04-12] MEDS: ENOXAPARIN 30 MG/0.3 ML SQ SCH (16:40)
[2022-04-12] MEDS: ATORVASTATIN 80 MG TAB PO SCH (19:54)
[2022-04-12] MEDS: MIRTAZAPINE 15 MG TAB PO SCH (19:54)
[2022-04-12] MEDS: DULOXETINE 30 MG CAP PO SCH (19:54)
--- NOTE | 2022-04-12 22:30 | PN ---
This is a ypzb-fj-yxgp visit with the patient, Pablo. Subjective: Ms. Shah reports slipping in her bed and the left lower extremity above the knee stum p which did not have a covering bandage rubbed against the sheets causing significant pain. As a res ult, she had problems with her eating and had nausea because of the severe pain and had acute urinary retention and she only was drinking just milk during the day. She did receive multiple pain medicat ions including neuromodulators which did begin to ease the pain. However, she had not urinated throu ghout the day and a Ríos was actually suggested prior to the patient actually voiding on her own and she actually eventually did void about 1000 cc of urine. Review of Systems: She does report the pain as noted in the stump of the left, some difficulty with sleeping, some nause a, poor appetite, otherwise some depressed mood but no other positives on the systems review. Objective: Vital Signs: Blood pressure 103/52, pulse 90, respiratory rate 16, temperature of 97.5 General: Ms. Shah is lying in bed. She has mild distress with pain, but she has received pain me dications. HEENT: She is normocephalic, atraumatic. Sclerae anicteric. Oropharynx pink and moist. Extremities: No significant clubbing or cyanosis. She has bilateral uofau-hnj-fxjy amputations. Th e left lower extremity stump is well bandaged. Good hemostasis. Laboratory Studies: No new laboratory studies. The last blood work done on the shows white blo od cell count 10.1, hemoglobin 9.1. Chemistries show glucose 180. X-ray imaging, no x-rays imaging. Medications: Not changed. It is same as last week. She is on aspirin 81 mg daily, amino acids supp lement 30 mL twice daily, [place] 5/325 every 4 hours as needed, extra-strength Tylenol 500 mg every 4 hours, Lipitor 80 mg at bedtime, baclofen 5 mg twice daily, Dulcolax 10 mg per rectum as needed for c onstipation, Plavix 75 mg daily, Os-Sean plus D 1 tablet daily, vitamin B12 1000 mcg sublingual daily, Colace 100 mg twice daily, 30 mg at bedtime, Lovenox 30 mg subcutaneously daily, Zetia 10 mg daily, ferrous sulfate 325 mg daily, Lasix 20 mg daily, gabapentin 800 mg 3 times daily, Novolin 70/30 22 units twice daily, Imodium 4 mg as needed, Megace 40 mg daily, Toprol-XL 25 mg daily, melato ilana 3 mg at bedtime, Remeron 15 mg at bedtime, Nitrostat 0.4 mg sublingual as needed, Zofran 4 mg parris ry 4 hours as needed, Protonix 40 mg daily. Current Functional Status: Due to her significant pain, she did have a mild regression, but despite that, she was able to complete wheelchair mobility. She had some difficulty mobilizing the wheelchai r with extra weight which is pulling a physical therapist in toe, she is unable to do that. She did transfer from a lower height to higher height with standby assistance. Progress towards rehabilitation goals: Today, she made slower progress as expected given her pain in left lower extremity stump and urinary retention, but overall she is making fair progress. Assessment: Ms. Shah is a 51-year-old patient with left recent pjexw-vhr-orpg amputation from [facility] and osteomyelitis and chronic right above-knee amputation. She has diabetes mellitus, hyperten yuli, dyslipidemia, depression, anemia, and malnutrition. She also has urinary retention and some mi ld dehydration. Plan: Continue physical and occupational therapy. Her comorbid conditions are managed by continuing medications as noted above. Barriers towards improvement and rehabilitation: Given her significant pain that is a barrier, but t he medications are adjusted. She does have a urinary retention. She had a bladder scan done showing a 1000 cc. She voided almost a 1000 cc after that was done, and no catheter was required. She did actually receive IV fluids as her blood pressures were lower earlier and so those were other barriers but are being addressed. LB/MODL Voice ID: [id number] Report ID: [id number]
--- NOTE | 2022-04-12 23:30 | PN ---
Date of Progress Note: 04/12/2022 Subjective: Ms. Shah is doing better today. She has much less pain of the left stump. She was a ble to urinate at least 300 cc earlier along with about 970 cc after a bladder scan identified about a liter of urine. She is feeling much better and is actually on a wheelchair, mobilizing with wheelc hair with a physical therapist in toe and a chair behind. Review of Systems: As noted constipation and vomiting, those improved significantly. Pain is better at the left lower e xtremity stump and her mood is better. Sleeping is better. No fevers or chills. Some myalgias but no arthralgias. Objective: Vital Signs: Blood pressure 116/56, pulse up 90 to 106, respiratory rate 16, temperature 97.4, oxygen saturation 98%. General: Ms. Shah again is doing well, sitting in a chair as this is a wheelchair and she mobiliz es with the hand with physical therapist in toe. HEENT: She is normocephalic, atraumatic. Sclerae anicteric. Oropharynx is moist and pink. Neck: Supple. Chest: Clear. Heart: Regular. Extremities: No edema noted in upper extremities. She has hemostasis of the left lower extremity ab ove the knee amputation, well bandaged. The right above knee stump has long healed. Laboratory Studies: White blood cell count from the 12th, 10.1, hemoglobin 9.9. Today, chemistry sh ows sodium 133, potassium 3.9, chloride 102, carbon dioxide 24, BUN 36, creatinine 1.51, glucose rang ed from 236-333, calcium 7.9, AST 11, ALT 13, alkaline phosphatase 104, total bilirubin 0.4, direct b ilirubin 0.1. X-ray Imaging: She had a KUB study done yesterday. The study showed nonobstructive bowel gas patter n. No evidence of free air or pneumatosis. There was subtle calcification projection ove r the right renal shadow which is suspected to have a right nephrolithiasis. She does not have flank pain. Medications have not changed from yesterday including medications for DVT prophylaxis, muscle spasms, dyslipidemia, iron deficiency anemia. She is on gabapentin and medications for constipation, althou gh that is as needed. She did have an increase in her creatinine and she did receive a bolus actuall y a total of 1500 cc between yesterday and today IV and she is drinking very well at this point. Current Functional Status: Today, she did again mobilize with wheelchair with resistance from the th erapist and toe and made it around 100 feet. With occupational therapy, she did work on t runk control, strengthening exercises with dowel bar bells while sitting upright in bed to help incre ase truncal stability. She did tolerate transfers 3 times with contact guard assistance. She did re quire stabilization 50% of her transfers. Progress Toward Rehabilitation Goals: She is making much better progress today towards her rehabilit ation goals and becoming independent with transfers, mobilization via wheelchair, but she will requir e some assistance to be able to reach things above the head since she has no lower extremities and to be able to maintain the left lower extremities without it impacting any surfaces. Assessment And Plan: Ms. Shah is a 51-year-old patient with a left-above knee amputation due to o steomyelitis and gangrene. She has chronic right above knee amputation. She has diabetes mellitus, which blood sugars have been somewhat more elevated today, hypertension, and malnutrition. She has d ehydration with elevated creatinine and anxiety and depression and her treatment of her comorbid cond itions do include her medications as indicated for diabetes mellitus, for hypertension, for constipat ion, for nausea, for malnutrition and for anemia along with her oral hypoglycemics and insulin slidin g scale in addition to scheduled insulin. Comorbidities that continue impact rehabilitation include pain at the stump, brittle diabetes, anxiet y and depression and those are addressed as noted above. LB/MODL Voice ID: [id number] Report ID: [id number]
[2022-04-13] MEDS: NA CHLORIDE 0.9% 1,000 ML IV SCH ×2 (00:38→10:40)
[2022-04-13 05:01] LABS: Potassium 4.1 mmol/L (3.5-5.1)
[2022-04-13] MEDS: INSULIN -REGULAR HUMAN 50 UNIT/0.5 ML ML SQ SCH ×4 (06:58→20:47)
[2022-04-13] MEDS: AMINO ACIDS/PROTEIN HYDROLYS 30 ML LIQUID.PKT PO SCH ×2 (08:00→19:55)
[2022-04-13] MEDS: FERROUS SULFATE 325 MG TAB PO SCH ×2 (08:00→19:46)
[2022-04-13] MEDS: PANTOPRAZOLE 40MG TABLET PO SCH (08:33)
[2022-04-13] MEDS: METOPROLOL XL 25 MG TAB PO SCH (08:34)
[2022-04-13] MEDS: ASPIRIN EC 81 MG TAB PO SCH (08:34)
[2022-04-13] MEDS: CLOPIDOGREL 75 MG TABLET PO SCH (08:35)
[2022-04-13] MEDS: DOCUSATE NA 100 MG CAP PO SCH ×2 (08:35→19:46)
[2022-04-13] MEDS: POTASSIUM CL SA 10 MEQ TAB PO SCH (08:35)
[2022-04-13] MEDS: BACLOFEN 10 MG TAB PO SCH ×2 (08:35→19:45)
[2022-04-13] MEDS: INSULIN 70/30 100 UNITS/ML SQ SCH ×2 (08:40→17:03)
[2022-04-13] MEDS: HYDROCODONE/APAP 5/325 MG TAB PO PRN ×2 (09:43→19:54)
[2022-04-13] MEDS: GABAPENTIN 400 MG CAP PO SCH ×3 (10:27→19:45)
[2022-04-13] MEDS: EZETIMIBE 10 MG TAB PO SCH (10:28)
[2022-04-13] MEDS: CYANOCOBALAMIN 1,000 MCG TAB PO SCH (10:28)
[2022-04-13] MEDS: MEGESTROL 40 MG TAB PO SCH (11:58)
[2022-04-13] MEDS: CALCIUM CARB 500MG/VIT D 200 IU TAB PO SCH (11:58)
[2022-04-13] MEDS: LIDOCAINE 4% PATCH TOP SCH (15:02)
[2022-04-13] MEDS: ATORVASTATIN 80 MG TAB PO SCH (19:45)
[2022-04-13] MEDS: MIRTAZAPINE 15 MG TAB PO SCH (19:45)
[2022-04-13] MEDS: APIXABAN 2.5 MG TABLET PO SCH (19:46)
[2022-04-13] MEDS: DULOXETINE 30 MG CAP PO SCH (19:46)
--- NOTE | 2022-04-13 23:50 | PN ---
Date of Progress Note: 04/13/2022 Subjective: Ms. Shah is continuing to do very well. She denies significant pain in the left lowe r extremity stump, except for some spasmodic pain along the inner stump of the thigh and some phantom limb pain, which she says is more than what she had when the right lnite-ege-mnsw amputation was don e. Otherwise, no fevers, chills, myalgias, or arthralgias. She is urinating better today. Review of Systems: No fevers or chills. No significant nausea. No vomiting or diarrhea. She has mild abdominal pain a nd stump pain. No psychiatric issues. Physical Examination: Vital Signs: Blood pressure 123/67, pulse 94, temperature 97.5, respiratory rate 14, oxygen saturati on 98%. General: Ms. Shah is lying in bed. She is in no significant distress. HEENT: Normocephalic, atraumatic. Sclerae anicteric. Oropharynx pink and moist. Lower Extremities: No clubbing, cyanosis, or edema. The left lower extremity stump has joe in p lace. Good hemostasis. No drainage from the area and the area around the incision is pink and heali ng well. Laboratory Studies: No new laboratory studies except glucose ranged 115 to 209, INR 1.12, and calciu m 7.6. Yesterday COVID-19 test was negative. X-ray/Imaging: No new x-rays. Medications: Medication list has not changed from yesterday. Eliquis 2.5 mg twice daily, aspirin 81 mg daily, Lipitor 80 mg at bedtime, baclofen 5 mg twice daily, Dulcolax as needed, Plavix 75 mg arielle y, Colace 100 mg twice daily, Zetia 10 mg daily, ferrous sulfate 325 mg twice daily, Lasix 20 mg arielle y, gabapentin 800 mg 3 times daily, Megace 40 mg daily, Imodium 4 mg every 4 hours as needed, lidocai ne patch to the left side as needed, Toprol 25 mg daily, Protonix 40 mg daily, and potassium replacem ent 10 mEq daily, Current Functional Status: Currently Ms. Shah is able to complete wheelchair mobilization with pe rsistence of a therapist covering 350 feet with independence. She did seated push up from a mat tabl e 20 times under supervision. She completed shower, ear washing, and upper body dressing independent ly. Lower body dressing and bed rolling ihcy-yu-ahss was done independently. Progress towards rehabilitation goals: She is making very good progress towards her goals to be come independent with transfers, upper body dressing, lower body dressing, mobilization in wheelchair, an d performing her activities of daily living. Assessment And Plan: Ms. Shah is a 51-year-old patient who has had a left tiaul-dcm-javqocivgs fr om osteomyelitis. She has a chronic right zbyqc-aoy-hjfo amputation and diabetes mellitus and had ep isodes of nausea, urinary retention, and diarrhea, which have improved. Also gastroesophageal reflux , poor appetite, depression, dyslipidemia, and phantom pain in the left lower extremity. Those condi tions are addressed as mentioned above with the medications in the medication list and again she will continue with her physical and occupational therapy. She is ready to be discharged actually by alvaro cannon where she will be at home with the help of her son. Continue physical therapy via Home Health. Comorbidities that continue impact rehabilitation process: Her comorbidities are stably managed and not impeding her ability to further make progress during rehabilitation. LB/MODL Voice ID: [id number] Report ID: [id number]
[2022-04-14 07:05] VITALS: TEMP 97.2
[2022-04-14] MEDS: LIDOCAINE 4% PATCH TOP SCH (07:35)
[2022-04-14] MEDS: INSULIN 70/30 100 UNITS/ML SQ SCH (07:36)
[2022-04-14] MEDS: PANTOPRAZOLE 40MG TABLET PO SCH (07:38)
[2022-04-14] MEDS: APIXABAN 2.5 MG TABLET PO SCH (07:38)
[2022-04-14] MEDS: BACLOFEN 10 MG TAB PO SCH (07:39)
[2022-04-14] MEDS: ASPIRIN EC 81 MG TAB PO SCH (07:39)
[2022-04-14] MEDS: CYANOCOBALAMIN 1,000 MCG TAB PO SCH (07:39)
[2022-04-14] MEDS: CLOPIDOGREL 75 MG TABLET PO SCH (07:39)
[2022-04-14] MEDS: EZETIMIBE 10 MG TAB PO SCH (07:39)
[2022-04-14] MEDS: METOPROLOL XL 25 MG TAB PO SCH (07:39)
[2022-04-14] MEDS: AMINO ACIDS/PROTEIN HYDROLYS 30 ML LIQUID.PKT PO SCH (07:40)
[2022-04-14] MEDS: FERROUS SULFATE 325 MG TAB PO SCH (07:52)
[2022-04-14] MEDS: CALCIUM CARB 500MG/VIT D 200 IU TAB PO SCH (07:53)
[2022-04-14] MEDS: DOCUSATE NA 100 MG CAP PO SCH (07:53)
[2022-04-14] MEDS: INSULIN -REGULAR HUMAN 50 UNIT/0.5 ML ML SQ SCH (08:13)
[2022-04-14] MEDS: MEGESTROL 40 MG TAB PO SCH (08:14)
[2022-04-14] MEDS: GABAPENTIN 400 MG CAP PO SCH (08:14)
[2022-04-14] MEDS: POTASSIUM CL SA 10 MEQ TAB PO SCH (08:15)
[2022-04-14 08:43] VITALS: BP 130/70
[2022-04-14] MEDS ORDERED: INSULIN 70/30 100 UNITS/ML SQ SCH (16:30)
== END 2022-04-14 09:00 | disposition home health service (06) | DRG 560 ==
LOC: 5TH 14:05
PROVIDERS: ADMIT Psychiatry & Neurology Neurology with Special Qualifications in Child Neurology; ATTEND Psychiatry & Neurology Neurology with Special Qualifications in Child Neurology
DX: Z47.81 Encounter for orthopedic aftercare following surgical amputation (principal); E46 Unspecified protein-calorie malnutrition; I10 Essential (primary) hypertension; E83.42 Hypomagnesemia; I25.10 Atherosclerotic heart disease of native coronary artery without angina pectoris; E11.51 Type 2 diabetes mellitus with diabetic peripheral angiopathy without gangrene; E78.5 Hyperlipidemia, unspecified; K59.00 Constipation, unspecified; F32.A Depression, unspecified; G47.00 Insomnia, unspecified; E86.0 Dehydration; D50.9 Iron deficiency anemia, unspecified; K21.9 Gastro-esophageal reflux disease without esophagitis; R33.9 Retention of urine, unspecified; Z95.5 Presence of coronary angioplasty implant and graft; Z88.5 Allergy status to narcotic agent; Z98.51 Tubal ligation status; Z68.20 Body mass index [BMI] 20.0-20.9, adult; Z89.522 Acquired absence of left knee; Z89.612 Acquired absence of left leg above knee; Z89.521 Acquired absence of right knee; Z91.048 Other nonmedicinal substance allergy status; Z20.822 Contact with and (suspected) exposure to COVID-19
CPT/HCPCS: 36415; 74018; 80048; 80076; 81001; 82040; 82705; 82947; 83735; 83880; 84134; 85025; 87045; 87046; 87086; 87088; 87324; 92523; 97110; 97112; 97116; 97129; 97163; 97165; 97530; 97542; J1650; J1815; J2001; J3475; J7030; Q0162; U0003

== ENCOUNTER 2022-04-17 05:29 | Observation (INO) | payer OTHER ==
--- OUTSIDE RECORDS SUMMARY | 2022-04-17 05:52 | XMS REPORT | Continuity of Care Document ---
:1970 Author Organization [facility] t Address [address] [place] [address] Care Team Providers Name Role Phone Igor BROWN, Rashad Avery Primary Care Physician [phone] ANATOLY FLORES Attending Clinician Unavailable YULIANA CARRASCO Attending Clinician Unavailable Yuliana Zuñiga Attending Clinician Lisa MURILLO, Garcia Avery Attending Clinician Unavailable RACHELLE GUTHRIE Attending Clinician Unavailable Marilu Coello Attending Clinician Che Barlow MD Attending Clinician George Barrett DO Attending Clinician Rachelle Guthrie DO Attending Clinician Alden Garcia MD Attending Clinician Tyler BROWN, Ryanne Meadows Attending Clinician [phone] Trace BROWN, Darrel Avery Attending Clinician Carine BROWN, Sharath Attending Clinician Alonso BROWN, Jeff Montero Attending Clinician Luis Benitez DO Attending Clinician KATHI MCBRIDE Attending Clinician Unavailable Anatoly Flores MD Attending Clinician Igor BROWN, Rashad Avery Attending Clinician Minh POULTRY OFFAL ICER, Madi Attending Clinician Doctor Unassigned, [place] Attending Clinician Unavailable NEO KNUTSON Attending Clinician Unavailable NEO KNUTSON Attending Clinician Unavailable FABBY RIVERA Attending Clinician Unavailable Fabby Rivera DO Attending Clinician MADI ASTORGA Attending Clinician Unavailable Bang POULTRY OFFAL ICER, Adeola Attending Clinician Lab, Ang - Db Attending Clinician Unavailable ADEOLA CUENCA Attending Clinician Unavailable RASHAD COSTA Attending Clinician Unavailable Phyllis Daniel RN Attending Clinician Unavailable Celso Duran DO Attending Clinician Gregory BROWN, Lily Attending Clinician LILY JENKINS Attending Clinician Unavailable Marquise DOTSON, Ra Platt Attending Clinician [phone] Han BROWN, Anmol Lara Attending Clinician [phone] Hosea BROWN, Lesia Wright Attending Clinician [phone] [phone], Patient Does Not Have A Attending Clinician [phone] Vance BROWN, Kathi Attending Clinician Jeanmarie POULTRY OFFAL ICER, Ronnie Garner Attending Clinician Enzo BROWN, Melly Rojas Attending Clinician Elyse Aparicio MD Attending Clinician Jay England MD Attending Clinician Sisi Salinas MD Attending Clinician SISI SALINAS Attending Clinician Unavailable Serena Garsia MD Attending Clinician 1, Adc Lab Attending Clinician Unavailable ERNST BOATENG Attending Clinician Unavailable Ernst Boateng PA-C Attending Clinician 2, Adc Lab Attending Clinician Unavailable Jessica Chávez RN Attending Clinician RHIANNA ROMANO Attending Clinician Unavailable Rhianna Romano MD Attending Clinician ALDEN GARCIA Admitting Clinician Unavailable Alden Garcia MD Admitting Clinician Celso Duran DO Admitting Clinician Ra Leonard Admitting Clinician [phone] Jay England MD Admitting Clinician ERNST BOATENG Admitting Clinician Unavailable RHIANNA ROMANO Admitting Clinician Unavailable Rhianna Romano MD Admitting Clinician Payers Payer Name Policy Type Policy Number Effective Date Expiration Date Vero neal MEDICARE PART A [id number] 2017 \\T\\ B 00:00:00 Problems Condition Condition [...] CAD in CAD in Disease Active Univers chefornak chefornak 7-05 ity of artery artery 00:00: Medical Branch Hypoglycem Hypoglycem Disease Active U [...] 00:00: [place] involving involving 00 Medi blanquita chefornak chefornak Branch coronary coronary artery of artery of che[place]nak che[place]nak heart heart without without angina angina pectoris [...] Added automatic ally from request for surgery [id number] GERD GERD Disease Active Univers (gastroeso (gastroeso it y of phageal phageal [place] reflux reflux Medical disease) disease) Branch DM DM Disease Active Univers (diabetes (diabetes ity of mellitus) mellitus) [facility] Depression Depression Disease Active U nivers ity of [facility] CVA CVA Disease Active Univers (cerebral (cerebral ity of vascular vascular [place] accident) accident) [facility] Branch CHF CHF Disease Active Univers (congestiv (congestiv it y of e heart e heart [place] failure) failure) Medica Branch Anxiety Anxiety Disease Active Univers ity of [facility] Angina Angina Disease Active Univers pectoris pectoris ity of [facility] H/O right H/O right Disease Active Uni vers coronary coronary ity of artery artery [place] stent stent Medical placement placement Bran ch Hyperlipid Hyperlipid Disease Active U nivers emia, emia, ity of unspecifie [place]specifie [place] d d Medical hyperlipid hyperlipid Br anch emia type emia type Essential Essential Disease Active Uni vers hypertensi hypertensi it [facility], [facility] Hx of CABG Hx of CABG Disease Active U nivers ity of [facility] Migraines Migraines Disease Active Uni vers ity of [facility] Seizures Seizures Disease Active Unive rs ity [facility] Unilateral Unilateral Disease Active U nivers AKA, right AKA, right it y of [facility] High High Disease Active Univers cholestero cholestero it y of l l [facility] HTN HTN Disease Active Univers (hypertens (hypertens it y of ion) ion) [facility] History of History of Problem Active C ommon CVA CVA Spirit (cerebrova (cerebrova - [facility] sc[facility] scular [facility] accident) accident) [facility] Migraine Migraine Problem Active Commo n without without Spirit aura and aura and - [facility] without without St status status [facility] Me dical s, not s, not Center intractabl intractabl e e 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 - [facility] with with St hyperglyce hyperglyce [facility] 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 - [facility] with other with other St specified specified [facility] complic[facility] complicati Me dical on on Center Hx of CABG Hx of CABG Problem Active C ommon Spirit - [facility] Chronic Chronic Problem Active Common pain pain Spirit disorder disorder - [facility] 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 insulin insulin [facility] Neuropathy Neuropathy Problem Active C rashel Spirit - [facility] Depression Depression Problem Active Heath kiser with with Spirit anxiety anxiety - [facility] HTN HTN Problem Active Common (hypertens (hypertens Sp kate ion), ion), - [facility] benign benign [facility] Seizures Seizures Problem Active Commo n Spirit - [facility] Coronary Coronary Problem Active Commo n artery artery Spirit disease disease - [facility] involving involving coronary coronary [facility] bypass bypass Medical graft of graft of [place] chefornak chefornak heart with heart with angina angina pectoris pectoris Dependent Dependent Problem Active Com mon on on Spirit wheelchair wheelchair - [facility] History of History of Problem Active Heath kiser right right Spirit above knee above knee - [facility] amputation amputation [facility] Allergies, Adverse Reactions, Alerts Allergy Allergy [...] Medical Branch Toradol Adverse Active Info Not Common Reaction Available Spiri t [facility] tramadol Adverse Active Info Not Commo n Reaction Available [facility] t [facility] Family History Family Member Diagnosis Comments Start Date Stop Date Source Natural father Diabetes [facility] Natural father Heart [facility] Natural father High [facility] Natural father Hypertension Universi ty [facility] Paternal Asthma [place] of grandmother [facility] Natural sister Hypertension Universi ty [facility] Natural son Diabetes [facility] Family member Arthritis [facility] Family member defects Universi ty of [facility] Family member Breast Cancer Universi ty of [facility] Family member Cancer University [facility] Family member Colon Cancer Universit y of [facility] Family member Depression [facility] Family member Genetic [facility] Family member Mental retardation Uni versity of [facility] Family member Neurological Universit y of [facility] Family member Osteoporosis Universit y of [facility] Family member Ovarian Cancer Univers ity of [facility] Family member Psychiatry [facility] Family member [facility] Social History Social Habit Start Date Stop Date Quantity Comments Source History of tobacco Passive smoker Un iversity of use [facility] Exposure to 2022-04-04 2022-04-14 Not sure [facility] SARS-CoV-2 (event) 00:00:00 10:59:00 [facility] Alcohol intake 2022-04-14 2022-04-14 Ex-drinker [facility] 00:00:00 00:00:00 (finding) [facility] Cigarettes smoked 2022-03-22 2022-03-22 Univers ity of current (pack per 00:00:00 00:00:00 [place] ) - Reported Branch Tobacco use and 2022-03-22 2022-03-22 Smokeless tobacco Un iversity of exposure 00:00:00 00:00:00 non-user [facility] Tobacco Comment 2022-03-22 2022-03-22 smoking since 12 Uni versity of 00:00:00 00:00:00 years old18 days [place] Me dical with out Branch cigarettes Education 2021-01-15 2021-01-15 12 University of 00:00:00 00:00:00 [facility] History SDOH 2020-05-08 2020-05-08 99 University o f Alcohol Frequency 00:00:00 00:00:00 [facility] edical Branch History SDOH 2020-05-08 2020-05-08 99 University o f Alcohol Std Drinks 00:00:00 00:00:00 [facility] History SDOH 2020-05-08 2020-05-08 99 University o f Alcohol Binge 00:00:00 00:00:00 [facility] Branch Alcohol Comment 2019-10-11 2019-10-11 rare Universit y of 00:00:00 00:00:00 [facility] Sex [birth year] At [birth year] Universit y of 00:00:00 00:00:00 [facility] Smoking Status Start Date Stop Date Source Ex-smoker 2022-03-22 00:00:00 2022-03-22 00:00:00 [facility] [place] [facility] Smokes tobacco daily 2020-04-03 00:00:00 [facility] Medications Ordered Filled Start Stop Current Ordering [...] unit/mL 00 4 (four) Medical injection hours. Branch HYDROcodone 2021-05 Yes [id number] 1{tbl} Take 1 [...] unit/mL 00 4 (four) Medical injection hours. Branch HYDROcodone 2021-05 Yes [id number] 1{tbl} Take 1 [...] unit/mL 00 4 (four) Medical injection hours. Branch HYDROcodone 2021-05 Yes [id number] 1{tbl} Take 1 [...] unit/mL 00 4 (four) Medical injection hours. Branch HYDROcodone 2021-05 Yes [id number] 1{tbl} Take 1 [...] Take 1 Uni vers oL 500 mg -07 tablet by ity o f tablet 00:00: mouth [place] 00 every 6 Medical (six) Branch hours. insulin 2021-05 Yes inject Univers lispro, 07 under the ity of human, 100 00:00: skin every [place] unit/mL 00 4 (four) Medical injection hours. Branch magnesium 2021-05- No 4g 4 g, IV Univ ers sulfate in 05-31 Piggyback, it y of water 4 17:45: 20:21 at 25 [place] gram/50 mL 00 :00 mL/hr Medical (8 %) IV Administer Branc h Piggyback 4 over 120 g Minutes, ONCE, 1 dose, On Es[place] 03/31/22 at 1245, Routine KCL 2021-05- No 40meq 40 mEq, Univers (KLOR-CON 05-31 Oral, Q2H, ity of M20) tablet 17:00: 20:00 2 doses, [place] 40 mEq 00 :00 First dose Medical on [place] Branch 03/31/22 at 1200, Last dose on [place] 03/31/22 at 1400, Routine HYDROcodone 2021-05 Yes 1{tbl} 1 tablet, Univers -acetaminop -03 Oral, Q4H, it y of hen (NORCO) 15:00: First dose [place] 10-325 mg 00 (after Medical tablet 1 last Branch tablet modificati on) on Esme 03/31/22 at 1000, Until Discontinu ed, Routine morpHINE (2 2021-05- No 2mg 2 mg, Slow Univers mg/mL) 05-31 IV Push, ity of injection 2 13:45: 13:26 ONCE, 1 [place] mg 00 :00 dose, On Medical [place] Branch 03/31/22 at 0845, Routine methocarbam 2021-05 Yes 500mg 500 mg, Un cali oL -03 Oral, Q6H, ity of (ROBAXIN) 13:00: First dose [place] tablet 500 00 (after Medical mg last Branch modificati on) on [place] 03/31/22 at 0800, Until Discontinu ed, Routine methocarbam 2021-05 Yes 500mg 500 mg, Un cali oL - Oral, QID, ity of (ROBAXIN) 17:00: First dose [place] tablet 500 00 on Wed Medical mg 03/30/22 at Branch 1200, Until Discontinu ed, Routine HYDROcodone 2021-05 Yes 1{tbl} 1 tablet, Univers -acetaminop 05-30 Oral, Q6H, it y of hen (NORCO) 17:00: First dose [place] 10-325 mg 00 on Mon Medical tablet 1 03/30/22 at Bran h tablet 1200, Until Discontinu ed, Routine methocarbam 2021-05- No 500mg 500 mg, U nivers oL 05-30 Oral, QID, ity of (ROBAXIN) 17:00: 12:54 First dose [place] tablet 500 00 :58 on Wed Medical mg 03/30/22 at Branch 1200, Until Discontinu ed, Routine HYDROcodone 2021-05- No 1{tbl} 1 tablet, Univers -acetaminop 05-30 Oral, Q6H, i ty of hen (NORCO) 17:00: 12:56 First dose [place] 10-325 mg 00 :15 on Wed Medical tablet 1 03/30/22 at Bran h tablet 1200, Until Discontinu ed, Routine morpHINE (2021-05 Yes 4mg 4 mg, Slow Univers mg/mL) 05-30 IV Push, ity of injection 4 15:45: Q3HPRN, [place] mg 00 Starting Medical on Wed Branch 03/30/22 at 1045, Until Discontinu ed, Routine, Pain (scale 7-10) morpHINE (2021-05 Yes 4mg 4 mg, Slow Univers mg/mL) 05-30 IV Push, ity of injection 4 15:45: Q3HPRN, [place] mg 00 Starting Medical on Mon03/30/22 at 1045, Until Discontinu ed, Routine, Pain (scale 7-10) FENTanyl PF 2021-05- No 25ug 25 mcg, Un cali (SUBLIMAZE 05-30 Slow IV ity o f (PF)) 12:45: 12:10 Push, [place] injection 00 :00 ONCE, 1 Medical 25 mcg dose, On Branch Mon03/30/22 at 0745, STAT magnesium 2021-05- No 4g 4 g, IV Univ ers sulfate in 05-30 Piggyback, it y of water 4 12:30: 14:07 at 25 [place] gram/50 mL 00 :56 mL/hr Medical (8 %) IV Administer Branc h Piggyback 4 over 120 g Minutes, ONCE, 1 dose, On Mon03/30/22 at 0730, Routine morpHINE (2 2021-05- No 2mg 2 mg, Slow Univers mg/mL) 05-29 IV Push, ity of injection 2 23:15: 22:39 ONCE, 1 [place] mg 00 :00 dose, On Medical Mon03/29/22 at 1815, Routine HYDROmorphO 2021-05 Yes .2mg 0.2 mg, Uni vers ne 05-29 Slow IV ity of (DILAUDID) 17:41: Push, [place] injection 02 Q5MIN PRN, Medi blanquita 0.2 mg 10 doses, Branch Starting on Mon03/29/22 at 1241, Until Discontinu ed, Routine, Pain (scale 7-10), PACU
Us e approved by (Faculty): PACU USE -ANESTHESI A SERVICE-HY DROMORPHON E INJECTIONS HYDROmorphO 2021-05- No .2mg 0.2 mg, Un cali ne 05-29 Slow IV ity of (DILAUDID) 17:41: 19:44 Push, [place] injection 02 :00 Q5MIN PRN, Medi blanquita 0.2 mg 10 doses, Branch Starting on Mon03/29/22 at 1241, Until Mon03/29/22 at 1444, Routine, Pain (scale 7-10), PACU
Us e approved by (Faculty): PACU USE -ANESTHESI A SERVICE-HY DROMORPHON E INJECTIONS FENTanyl PF 2021-05- No 25ug 25 mcg, Un cali (SUBLIMAZE 05-29 Slow IV ity o f (PF)) 17:41: 18:40 Push, [place] injection 02 :00 Q5MIN PRN, Medi blanquita 25 mcg 4 doses, Branch Starting on Mon03/29/22 at 1241, Until Mon03/29/22 at 1340, Routine, Pain (scale 4-6), PACU iopamidol 2021-05- No ONCE INTRA U nivers (ISOVUE 03-28 PROCEDURE, ity o f 370-500 mL) 20:14: 20:26 Starting [place] injection 06 :03 on Mon03/28/22 Branch at 1514, Until Mon03/28/22 at 1526, Routine, CV Intraproce dure lidocaine 2021-05- No ONCE INTRA U nivers 1% (PF) 03-28 PROCEDURE, ity o f (XYLOCAINE) 19:30: 20:26 Starting [place] injection 00 :03 on Mon03/28/22 Branch at 1430, Until Mon03/28/22 at 1526, Routine, CV Intraproce dure midazolam 2021-05- No ONCE INTRA U nivers (VERSED) 03-28 PROCEDURE, ity of injection 19:23: 20:26 Starting [place] as 00 :03 on Mon03/28/22 Branch at 1423, Until Mon03/28/22 at 1526, Routine, CV Intraproce dure FENTanyl PF 2021-05- No ONCE INTRA Univers (SUBLIMAZE 03-28 PROCEDURE, it y of (PF)) 19:23: 20:26 Starting [place] injection 00 :03 on Mon03/28/22 Branch at 1423, Until Mon03/28/22 at 1526, Routine, CV Intraproce dure iodixanoL 2021-05 Yes PRN, Univers (VISIPAQUE 0 Starting ity o f 270-150 mL) 13:52: on Fri [place] injection 03/25/22 Medica l at 0852, Branch Until Discontinu ed, Routine, Intra-op lidocaine 2021-05 Yes PRN, Univers 1% (PF) Starting ity of (XYLOCAINE) 12:50: on Mon [place] injection 03/25/22 Medica l at 0750, Branch Until Discontinu ed, Routine, Intra-op heparin 2021-05 Yes PRN, Univers 10,000 0 Starting ity of units in NS 12:00: on Mon [place] 1000 mL for 03/25/22 Medi blanquita vascular at 0700, Branch Intra-op magnesium 2021-05 4g 4 g, IV Univ ers sulfate in 03-25 Piggyback, it y of water 4 11:15: 17:38 at 25 [place] gram/50 mL 00 :00 mL/hr Medical (8 %) IV Administer Branc h Piggyback 4 over 120 g Minutes, ONCE, 1 dose, On Mon03/25/22 at 0615, Routine Sliding 2021-05 Yes Subcutaneo Univ ers [...] at 1200, Until Discontinu ed, Routine HYDROcodone 2021-05- No 1{tbl} 1 tablet, Univers -acetaminop 0-27 11-02 Oral, Q4H, i ty of hen (NORCO 17:00: 13:29 First dose [place] 5) 5-325 mg 00 :47 (after Medica l tablet 1 last Branch tablet modificati on) on Mon03/24/22 at 1200, Until Discontinu ed, Routine sulfur 2021-05- No [id number] 5mL 5 mL, Unive rs hexafluorid 03-24 Intravenou i ty of e microsphr 15:45: 15:45 s, ONCE, 1 [place] (LUMASON) 00 :00 dose, On Medica l injection 5 [place] Branch mL 03/24/22 at 1045, Routine
member service representative approving Restricted medication : MARISABEL BUSCH TARALYSA gadobenate 2021-05- No [id number] .2mL/kg 10.7 mL Univers dimeglumine 003-23 (0.2 mL/kg i ty of (MULTIHANCE 23:30: 23:30 ?53.5 kg), [place] -15 mL) 00 :00 Intravenou Medica l injection s, ONCE, 1 Bran ch 10.7 mL dose, On Mon03/23/22 at 1830, Routine insulin NPH 2021-05 Yes 39U 39 Units, U nivers and regular 0-26 Subcutaneo it y of human 70 21:30: [place], [place] (70-30 00 First dose Medical U-100 (after Branch INSULIN) last 100 unit/mL modificati (70-30) on) on Mon injection 03/23/22 39 Units at 1630, Until Discontinu ed, Routine insulin NPH 2021-05 Yes 39U 39 Units, U nivers and regular 0-26 Subcutaneo it y of human 21:30: [place], [place] (70-30 00 First dose Medical U-100 (after Branch INSULIN) last 100 unit/mL modificati (70-30) on) on Mon injection 03/23/22 39 Units at 1630, Until Discontinu ed, Routine insulin NPH 2021-05 Yes 39U 39 Units, U nivers and regular 0-26 Subcutaneo it y of human 70 21:30: [place], [place] (7030 00 First dose Medical U-100 (after Branch INSULIN) last 100 unit/mL modificati (70-30) on) on Mon injection 03/23/22 39 Units at 1630, Until Discontinu ed, Routine insulin NPH 2021-05 Yes 39U 39 Units, U nivers and regular 0-26 Subcutaneo it y of human 21:30: [place], [place] ( 00 First dose Medical U-100 (after Branch INSULIN) last 100 unit/mL modificati (70-30) on) on Mon injection 03/23/22 39 Units at 1630, Until Discontinu ed, Routine HYDROcodone 2021-05- No 1{tbl} 1 tablet, Univers -acetaminop 0- 10-27 Oral, Q6H, i ty of hen (NORCO 17:00: 14:56 First dose [place] 5) 5-325 mg 00 :26 on Mon Medica l tablet 1 03/23/22 Branch tablet at 1200, Until Discontinu ed, Routine morpHINE (2 2021-05 Yes 4mg 4 mg, Slow Univers mg/mL) 0-26 IV Push, ity of injection 4 14:51: Q4HPRN, [place] mg 37 Starting Medical on Mon Branch 03/23/22 at 0951, Until Discontinu ed, Routine, Pain (scale 7-10) morpHINE (2021-05 Yes 4mg 4 mg, Slow Univers mg/mL) 0 IV Push, ity of injection 4 14:51: Q4HPRN, [place] mg 37 Starting Medical on Mon Branch 03/23/22 at 0951, Until Discontinu ed, Routine, Pain (scale 7-10) morpHINE (2021-05- No 4mg 4 mg, Slow Univers mg/mL) 003-30 IV Push, ity of injection 4 14:51: 15:33 Q4HPRN, [place] mg 37 :43 Starting Medical on Mon Branch 03/23/22 at 0951, Until Mon03/30/22 at 1033, Routine, Pain (scale 7-10) magnesium 2021-05- No 4g 4 g, IV Univ ers sulfate in 03-23 Piggyback, it y of water 4 07:45: 11:09 at 25 [place] gram/50 mL 00 :00 mL/hr Medical (8 %) IV Administer Branc h Piggyback 4 over 120 g Minutes, ONCE, 1 dose, On Mon03/23/22 at 0245, Routine Sliding 2021-05- No Subcutaneo Uni vers Scale 0-25 10-27 us, TID ity of Insulin - 17:00: 19:07 MEALS+HS, [place] Lispro 00 :07 First dose Medical (HumaLOG) + on Mon Fsbg 03/22/22 Testing at 1200, Until Discontinu ed, Routine dextrose 2021-05 Yes 250mL 250 mL, IV Un cali 10% (D10W) 0-25 Infusion, ity of bolus 14:00: PRN - SEE [place] infusion 33 INSTRUCTIO Medic al 250 mL [...] ity of bolus 14:00: PRN - SEE [place] infusion 33 INSTRUCTIO Medic al 250 mL [...] ity of bolus 14:00: PRN - SEE [place] infusion 33 INSTRUCTIO Medic al 250 mL [...] ity of bolus 14:00: PRN - SEE [place] infusion 33 INSTRUCTIO Medic al 250 mL [...] KIT) 30 Starting Medical injection 1 on [facility] 03/22/22 at 0900, Until Discontinu ed, TRANG, Blood Glucose < or = 70 mg/dL and patient is unable to swallow or has mental changes. glucagon 2021-05 Yes 1mg 1 mg, Univers (GLUCAGEN 0-25 Intramuscu ity of DIAGNOSTIC 14:00: lar, PRN, [place] KIT) 30 Starting Medical injection 1 on [facility] 03/22/22 at 0900, Until Discontinu ed, TRANG, Blood Glucose < or = 70 mg/dL and patient is unable to swallow or has mental changes. glucagon 2021-05 Yes 1mg 1 mg, Univers (GLUCAGEN 0-25 Intramuscu ity of DIAGNOSTIC 14:00: lar, PRN, [place] KIT) 30 Starting Medical injection 1 on [facility] 03/22/22 at 0900, Until Discontinu ed, TRANG, Blood Glucose < or = 70 mg/dL and patient is unable to swallow or has mental changes. glucagon 2021-05 Yes 1mg 1 mg, Univers (GLUCAGEN 0-25 Intramuscu ity of DIAGNOSTIC 14:00: lar, PRN, [place] KIT) 30 Starting Medical injection 1 on Mon Branch mg 03/22/22 at 0900, Until Discontinu ed, TRANG, Blood Glucose < or = 70 mg/dL and patient is unable to swallow or has mental changes. Vancomycin 2021-05 15mg/kg 750 mg U nivers 750 mg in 0-03-24 (rounded ity o f NaCl 0.9% 15:00: 19:20 from 816 Raffy as (NS) 250 mL 00 :40 mg = 15 Medic al VIAL-MATE mg/kg Branch ?54.4 kg), IV Piggyback, Q12H ABX, 11 doses, First dose (after last modificati on) on Mon03/21/22 at 1000, Last dose on [facility] 03/26/22 at 1000, Administer over 60 Minutes, 250 mL
Reas on for Anti-Infec tive: Documented Infection< br>Documen anthony Infection Site: Skin / Soft Tissue
Duration of Therapy: 7 days docusate 2021-05 Yes 100mg 100 mg, Unive rs (COLACE) 0-24 Oral, BID, ity o f capsule 100 07:30: First dose [place] mg 00 on [facility] 03/21/22 Branch at 0230, Until Discontinu ed, Routine docusate 2021-05 Yes 100mg 100 mg, Unive rs (COLACE) 0-24 Oral, BID, ity o f capsule 100 07:30: First dose [place] mg 00 on [facility] 03/21/22 Branch at 0230, Until Discontinu ed, Routine docusate 2021-05 Yes 100mg 100 mg, Unive rs (COLACE) 0-24 Oral, BID, ity o f capsule 100 07:30: First dose [place] mg 00 on [facility] 03/21/22 Branch at 0230, Until Discontinu ed, Routine docusate 2021-05 Yes 100mg 100 mg, Unive rs (COLACE) 0-24 Oral, BID, ity o f capsule 100 07:30: First dose [place] mg 00 on [facility] 03/21/22 Branch at 0230, Until Discontinu ed, Routine Sliding 2021-05 No Subcutaneo Uni vers Scale 0-23 10-25 us, AC+HS, ity of Insulin-Reg 17:00: 14:01 First dose [place] ular + Fsbg 00 :18 (after Medica l Testing last Branch modificati on) on [place] 03/20/22 at 1200, Until Discontinu ed, Routine morpHINE (2 2021-05- No 2mg 2 mg, Slow Univers mg/mL) 03-23 IV Push, ity of injection 2 03:55: 14:51 Q4HPRN, [place] mg 57 :53 Starting Medical on [facility] Branch 03/19/22 at 2255, Until 03/23/22 at 0951, Routine, Pain (scale 7-10) atorvastati 2021-05 Yes 80mg 80 mg, Univ ers n (LIPITOR) 0-23 Oral, QHS, it y of tablet 80 02:00: First dose [place] mg 00 on [facility] 03/19/22 Branch at 2100, Until Discontinu ed, Routine atorvastati 2021-05 Yes 80mg 80 mg, Univ ers n (LIPITOR) 0-23 Oral, QHS, it y of tablet 80 02:00: First dose [place] mg 00 on [facility] Medical 03/19/22 Branch at 2100, Until Discontinu ed, Routine atorvastati 2021-05 Yes 80mg 80 mg, Univ ers n (LIPITOR) 0-23 Oral, QHS, it y of tablet 80 02:00: First dose [place] mg 00 on [facility] Medical 03/19/22 Branch at 2100, Until Discontinu ed, Routine atorvastati 2021-05 Yes 80mg 80 mg, Univ ers n (LIPITOR) 0-23 Oral, QHS, it y of tablet 80 02:00: First dose [place] mg 00 on [facility] 03/19/22 Branch at 2100, Until Discontinu ed, Routine insulin NPH 2021-05- No 30U 30 Units, Univers and regular 03-23 Subcutaneo i ty of human 70-30 21:30: 19:49 us, BIDAC, [place] (70-30 00 :20 First dose Medical U-100 (after Branch INSULIN) last 100 unit/mL modificati (70-30) on) on [facility] injection 03/19/22 30 Units at 1630, Until Discontinu ed, Routine ceFEPIme 2021-05 1000mg 1,000 mg, U nivers (MAXIPIME) 03-24 IV ity of 1,000 mg in 19:00: 18:59 Piggyback, [place] NaCl 0.9% 00 :00 Q8H, 15 Medical (NS) 50 mL doses, Branch MINI-BAG First dose on 03/19/22 at 1400, Last dose on [place] 03/24/22 at 0600, Administer over 240 Minutes, 50 mL
Reas on for Anti-Infec tive: Empiric Therapy for Suspected Infection< br>Empiric Therapy Site: Skin / Soft tissue
Duration of therapy: 5 days HYDROcodone 2021-05 1{tbl} 1 tablet, Univers -acetaminop 03-23 Oral, ity of hen (NORCO 15:18: 14:51 Q6HPRN, [place] 5) 5-325 mg 46 :53 Starting Medi blanquita tablet 1 on [facility] Branch tablet 03/19/22 at 1018, Until 03/23/22 at 0951, Routine, Pain (scale 4-6) Vancomycin 2021-05 15mg/kg 750 mg U nivers 750 mg in 03-20 (rounded ity o f NaCl 0.9% 15:00: 17:29 from 816 [place] (NS) 250 mL 00 :56 mg = 15 Medic al VIAL-MATE mg/kg Branch ?54.4 kg), IV Piggyback, Q8H ABX, 15 doses, First dose on 03/19/22 at 1000, Last dose on [place] 03/24/22 at 0200, Administer over 60 Minutes, 250 mL
Reas on for Anti-Infec tive: Documented Infection< br>Documen anthony Infection Site: Skin / Soft Tissue< br>Duratio n of Therapy: 7 days enoxaparin 2021-05 Yes 40mg 40 mg, Unive rs (LOVENOX) Subcutaneo ity of injection 14:00: us, DAILY, [place] 40 mg 00 First dose Medical on [facility] Branch 03/19/22 at 0900, Until Discontinu ed, Routine pantoprazol 2021-05 Yes 40mg 40 mg, Univ ers e 0-22 Oral, ity of (PROTONIX) 14:00: DAILY, [place] EC tablet 00 First dose Medi blanquita 40 mg on [facility] 03/19/22 at 0900, Until Discontinu ed, Routine ezetimibe 2021-05 Yes 10mg 10 mg, Univer s (ZETIA) 0-22 Oral, ity of tablet 10 14:00: DAILY, [place] mg 00 First dose Medical on [facility] 03/19/22 at 0900, Until Discontinu ed, Routine aspirin 2021-05 Yes 81mg 81 mg, Univers chewable 0-22 Oral, ity of tablet 81 14:00: DAILY, [place] mg 00 First dose Medical on [facility] 03/19/22 at 0900, Until Discontinu ed, Routine enoxaparin 2021-05 Yes 40mg 40 mg, Unive rs (LOVENOX) 0-22 Subcutaneo ity of injection 14:00: us, DAILY, [place] 40 mg 00 First dose Medical on [facility] 03/19/22 at 0900, Until Discontinu ed, Routine pantoprazol 2021-05 Yes 40mg 40 mg, Univ ers e 0-22 Oral, ity of (PROTONIX) 14:00: DAILY, [place] EC tablet 00 First dose Medi blanqiuta 40 mg on [facility] 03/19/22 at 0900, Until Discontinu ed, Routine ezetimibe 2021-05 Yes 10mg 10 mg, Univer s (ZETIA) 0-22 Oral, ity of tablet 10 14:00: DAILY, [place] mg 00 First dose Medical on [facility] 03/19/22 at 0900, Until Discontinu ed, Routine aspirin 2021-05 Yes 81mg 81 mg, Univers chewable 0-22 Oral, ity of tablet 81 14:00: DAILY, [place] mg 00 First dose Medical on [facility] 03/19/22 at 0900, Until Discontinu ed, Routine enoxaparin 2021-05 Yes 40mg 40 mg, Unive rs (LOVENOX) 0-22 Subcutaneo ity of injection 14:00: us, DAILY, [place] 40 mg 00 First dose Medical on [facility] 03/19/22 at 0900, Until Discontinu ed, Routine pantoprazol 2021-05 Yes 40mg 40 mg, Univ ers e 0-22 Oral, ity of (PROTONIX) 14:00: DAILY, [place] EC tablet 00 First dose Medi blanquita 40 mg on [facility] 03/19/22 at 0900, Until Discontinu ed, Routine ezetimibe 2021-05 Yes 10mg 10 mg, Univer s (ZETIA) 0-22 Oral, ity of tablet 10 14:00: DAILY, [place] mg 00 First dose Medical on [facility] 03/19/22 at 0900, Until Discontinu ed, Routine aspirin 2021-05 Yes 81mg 81 mg, Univers chewable 0-22 Oral, ity of tablet 81 14:00: DAILY, [place] mg 00 First dose Medical on [facility] 03/19/22 at 0900, Until Discontinu ed, Routine enoxaparin 2021-05 Yes 40mg 40 mg, Unive rs (LOVENOX) 0-22 Subcutaneo ity of injection 14:00: us, DAILY, [place] 40 mg 00 First dose Medical on [facility] 03/19/22 at 0900, Until Discontinu ed, Routine pantoprazol 2021-05 Yes 40mg 40 mg, Univ ers e 0-22 Oral, ity of (PROTONIX) 14:00: DAILY, [place] EC tablet 00 First dose Medi blanquita 40 mg on [facility] 03/19/22 at 0900, Until Discontinu ed, Routine ezetimibe 2021-05 Yes 10mg 10 mg, Univer s (ZETIA) 0-22 Oral, ity of tablet 10 14:00: DAILY, [place] mg 00 First dose Medical on [facility] 03/19/22 at 0900, Until Discontinu ed, Routine aspirin 2021-05 Yes 81mg 81 mg, Univers chewable 0-22 Oral, ity of tablet 81 14:00: DAILY, [place] mg 00 First dose Medical on [facility] 03/19/22 at 0900, Until Discontinu ed, Routine clopidogreL 2021-05 75mg 75 mg, Uni vers (PLAVIX) 75 0-31 Oral, ity of mg tablet 14:00: 21:11 DAILY, [place] 75 mg 00 :44 First dose Medical on [facility] 03/19/22 at 0900, Until Discontinu ed, Routine gabapentin 2021-05 Yes 800mg 800 mg, Uni vers (NEURONTIN) 0-22 Oral, TID, it y of tablet 800 13:00: First dose [place] mg 00 on [facility] 03/19/22 Branch at 0800, Until Discontinu ed, Routine gabapentin 2021-05 Yes 800mg 800 mg, Uni vers (NEURONTIN) 0-22 Oral, TID, it y of tablet 800 13:00: First dose [place] mg 00 on [facility] 03/19/22 Branch at 0800, Until Discontinu ed, Routine gabapentin 2021-05 Yes 800mg 800 mg, Uni vers (NEURONTIN) 0 Oral, TID, it y of tablet 800 13:00: First dose [place] mg 00 on [facility] 03/19/22 Branch at 0800, Until Discontinu ed, Routine gabapentin 2021-05 Yes 800mg 800 mg, Uni vers (NEURONTIN) 0 Oral, TID, it y of tablet 800 13:00: First dose [place] mg 00 on [facility] 03/19/22 Branch at 0800, Until Discontinu ed, Routine NaCl 0.9% 2021-05 No 1000mL at 125 Uni vers (NS) IV 03-19 mL/hr, IV ity of infusion 13:00: 13:03 Infusion, [place] 1,000 mL 00 :07 ONCE, 1 Medical dose, On Branch [facility] 03/19/22 at 0800, Routine fluconazole 2021-05- No 200mg 200 mg, U nivers (DIFLUCAN) 03-19 Oral, ity of tablet 200 12:30: 12:57 ONCE, 1 [place] mg 00 :00 dose, On [facility] 03/19/22 at 0730, TRANG
Re ason for Anti-Infec tive: Empiric Therapy for Suspected Infection< br>Empiric Therapy Site: Abdominal< br>Duratio n of therapy: 5 days insulin NPH 2021-05- No 20U 20 Units, Univers and regular 03-19 Subcutaneo i ty of human 70-30 12:30: 18:50 , [place], [place] (70-30 00 :12 First dose Medical U-100 on [facility] INSULIN) 03/19/22 100 unit/mL at 0730, (70-30) Until injection Discontinu 20 Units ed, Routine piperacilli 2021-05 3.375g 3.375 g, Univers n-tazobacta 0- 10- IV ity of m (ZOSYN) 12:00: 13:37 Piggyback, [place] 3.375 g in 00 :00 ONCE, 1 Medica l NaCl 0.9% dose, On Branch (NS) 50 mL Sat MINI-BAG 03/19/22 at 0700, Administer over 30 Minutes, 50 mL
Reas on for Anti-Infec tive: Empiric Therapy for Suspected Infection< br>Empiric Therapy Site: Skin / Soft tissue
Duration of therapy: 5 days polyethylen 2021-05 Yes 17g 17 g, Unive rs e glycol 0-22 Oral, ity of 3350 powder 11:37: [id number], [place] 17 g 04 Starting Medical on [facility] Branch 03/19/22 at 0637, Until Discontinu ed, Routine, Constipati on polyethylen 2021-05 Yes 17g 17 g, Unive rs e glycol 0-22 Oral, ity of 3350 powder 11:37: [id number], [place] 17 g 04 Starting Medical on Sat Branch 03/19/22 at 0637, Until Discontinu ed, Routine, Constipati on polyethylen 2021-05 Yes 17g 17 g, Unive rs e glycol 0-22 Oral, ity of 3350 powder 11:37: [id number], [place] 17 g 04 Starting Medical on [facility] Branch 03/19/22 at 0637, Until Discontinu ed, Routine, Constipati on polyethylen 2021-05 Yes 17g 17 g, Unive rs e glycol 0-22 Oral, ity of 3350 powder 11:37: [id number], [place] 17 g 04 Starting Medical on Sat Branch 03/19/22 at 0637, Until Discontinu ed, Routine, [...] IV Push, ity of (PF)) 09:50: Q6HPRN, [place] injection 4 56 Starting Medi blanquita mg on [facility] Branch 03/19/22 at 0450, Until Discontinu ed, Routine, Nausea and Vomiting (N/V) ondansetron 2021-05 Yes 4mg 4 mg, Slow Univers (ZOFRAN 0-22 IV Push, ity of (PF)) 09:50: Q6HPRN, [place] injection 4 56 Starting Medi blanquita mg on [facility] Branch 03/19/22 at 0450, Until Discontinu ed, Routine, Nausea and Vomiting (N/V) ondansetron 2021-05 Yes 4mg 4 mg, Slow Univers (ZOFRAN 0-22 IV Push, ity of (PF)) 09:50: Q6HPRN, [place] injection 4 56 Starting Medi blanquita mg on [facility] Branch 03/19/22 at 0450, Until Discontinu ed, Routine, Nausea and Vomiting (N/V) morpHINE (2 2021-05 2mg 2 mg, Slow Univers mg/mL) 0 10-23 IV Push, ity of injection 2 09:50: 03:56 Q4HPRN, [place] mg 42 :27 Starting Medical on [facility] Branch 03/19/22 at 0450, Until 03/19/22 at 2256, Routine, Pain (scale 7-10) acetaminoph 2021-05 Yes 650mg 650 mg, Un cali en 0-22 Oral, ity of (TYLENOL) 09:49: Q6HPRNDenver, [place] tablet 650 47 Starting Medic al mg on [facility] Branch 03/19/22 at 0449, Until Discontinu ed, Routine, Pain (scale 1-3) acetaminoph 2021-05 Yes 650mg 650 mg, Un cali en 0-22 Oral, ity of (TYLENOL) 09:49: Q6HPRN, [place] tablet 650 47 Starting Medic al mg on [facility] Branch 03/19/22 at 0449, Until Discontinu ed, Routine, Pain (scale 1-3) acetaminoph 2021-05 Yes 650mg 650 mg, Un cali en 0-22 Oral, ity of (TYLENOL) 09:49: Q6HPRN, [place] tablet 650 47 Starting Medic al mg on Sat Branch 03/19/22 at 0449, Until Discontinu ed, Routine, Pain (scale 1-3) acetaminoph 2021-05 Yes 650mg 650 mg, Un cali en 0 Oral, ity of (TYLENOL) 09:49: Q6HPRN, [place] tablet 650 47 Starting Medic al mg [...] Yes 15mg 15 mg, Univ ers (REMERON) 0 Oral, ity of tablet 15 09:46: QHSPRN, [place] mg 59 Starting Medical on Sat Branch 03/19/22 at 0446, Until Discontinu ed, Routine, insomnia mirtazapine 2021-05 Yes 15mg 15 mg, Univ ers (REMERON) 0-22 Oral, ity of tablet 15 09:46: QHSPRN, [place] mg 59 Starting Medical on Sat Branch 03/19/22 at 0446, Until Discontinu ed, Routine, insomnia mirtazapine 2021-05 Yes 15mg 15 mg, [facility] ers (REMERON) 0-22 Oral, ity of tablet 15 09:46: QHSPRN, [place] mg 59 Starting Medical on Sat Branch 03/19/22 at 0446, Until Discontinu ed, Routine, insomnia mirtazapine 2021-05 Yes 15mg 15 mg, [facility] ers (REMERON) 0-22 Oral, ity of tablet 15 09:46: QHSPRN, [place] mg 59 Starting Medical on Sat Branch 03/19/22 at 0446, Until Discontinu ed, Routine, insomnia insulin 2021-05 No 10U 10 Units, [facility] ers regular 03-19 Slow IV ity of human 07:45: 06:50 Push, [place] (HUMULIN R) 00 :00 ONCE, 1 Medic al injection dose, On Branch 10 Units 03/19/22 at 0245, Routine
Indicatio n for insulin: Hyperglyce filomena Vancomycin 2021-05- No 15mg/kg 750 mg U nivers 750 mg in 03-19 (rounded ity o f NaCl 0.9% 07:30: 07:45 from 816 [place] (NS) 250 mL 00 :00 mg = 15 Medic al VIAL-MATE mg/kg Branch ?54.4 kg), IV Piggyback, ONCE, 1 dose, On 03/19/22 at 0230, Administer over 60 Minutes, 250 mL
Reas on for Anti-Infec tive: Documented Infection< br>Docu mented Infection Site: Skin / Soft Tissue
Duration of Therapy: Other (see Comments) ondansetron 2021-05 No 4mg 4 mg, Slow Univers (ZOFRAN 03-19 IV Push, ity of (PF)) 07:15: 07:09 ONCE, 1 [place] injection 4 00 :00 dose, On Medi blanquita mg Sat Branch 03/19/22 at 0215, TRANG morpHINE (4 2021-05 No 4mg 4 mg, Slow Univers mg/mL) 0-03-19 IV Push, ity of injection 4 07:15: 07:09 ONCE, 1 [place] mg 00 :00 dose, On Medical Sat Branch 03/19/22 at 0215, STAT NaCl 0.9% 2021-05- No 500mL at 999 Univ ers (NS) bolus 0- 10-22 mL/hr, 500 it y of infusion 07:15: 06:53 mL, IV [place] 500 mL 00 :00 Infusion, Medical ONCE, 1 Branch dose, On 03/19/22 at 0215, STAT gabapentin 2021-05 Yes [id number] 800mg Take 1 Univers 800 mg 0-04 tablet by ity of tablet 00:00: mouth in [place] [address] the [facility] and 1 tablet at noon and 1 tablet in the evening. gabapentin 2021- Yes [id number] 800mg Take 1 Univers 800 mg 0-04 tablet by ity of tablet 00:00: mouth in [address] and 1 tablet at noon and 1 tablet in the evening. gabapentin 2021-05 Yes [id number] 800mg Take 1 Univers 800 mg 0-04 tablet by ity of tablet 00:00: mouth in [place] [address] the [facility] and 1 tablet at noon and 1 tablet in the evening. gabapentin 2021-05 Yes [id number] 800mg Take 1 Univers 800 mg 0-04 tablet by ity of tablet 00:00: mouth in [place] [address] the [facility] and 1 tablet at noon and 1 tablet in the evening. gabapentin 2021-05 Yes [id number] 800mg Take 1 Univers 800 mg 0-04 tablet by ity of tablet 00:00: mouth in [address] and 1 tablet at noon and 1 tablet in the evening. gabapentin 2021-05 Yes [id number] 800mg Take 1 Univers 800 mg 0-04 tablet by ity of tablet 00:00: mouth in [address] and 1 tablet at noon and 1 tablet in the evening. gabapentin 2021- Yes [id number] 800mg Take 1 Univers 800 mg 0-04 tablet by ity of tablet 00:00: mouth in [address] and 1 tablet at noon and 1 tablet in the evening. gabapentin 2021-05 Yes [id number] 800mg Take 1 Univers 800 mg 0-04 tablet by ity of tablet 00:00: mouth in [place] [address] the Medical morning Branch and 1 tablet at noon and 1 tablet in the evening. gabapentin 2021- Yes [id number] 800mg Take 1 Univers 800 mg 0-04 tablet by ity of tablet 00:00: mouth in [place] 00 the [facility] morning Branch and 1 tablet at noon and 1 tablet in the evening. gabapentin 2021-1 Yes [id number] 800mg Take 1 Univers 800 mg 0-04 tablet by ity of tablet 00:00: mouth in [place] [address] the Medical morning Branch and 1 tablet at noon and 1 tablet in the evening. gabapentin 2021- Yes [id number] 800mg Take 1 Univers 800 mg 0-04 tablet by ity of tablet 00:00: mouth in [place] [address] the [facility] morning [place] and 1 tablet at noon and 1 tablet in the evening. gabapentin 2021- Yes [id number] 800mg Take 1 Univers 800 mg 0-04 tablet by ity of tablet 00:00: mouth in [place] [address] the [facility] morning [place] and 1 tablet at noon and 1 tablet in the evening. gabapentin 2021- Yes [id number] 800mg Take 1 Univers 800 mg 0-04 tablet by ity of tablet 00:00: mouth in [place] [address] the [facility] morning [place] and 1 tablet at noon and 1 tablet in the evening. gabapentin 2021-1 Yes [id number] 800mg Take 1 Univers 800 mg 0-04 tablet by ity of tablet 00:00: mouth in [place] [address] the [facility] morning [place] and 1 tablet at noon and 1 tablet in the evening. GABAPENTIN 2021-0 2021- No [id number] TAKE 1 Univers 800 mg 9-06 10-04 TABLET BY ity of tablet 00:00: 00:00 MOUTH [place] 00 :00 THREE Medical TIMES Branch DAILY GABAPENTIN 2021-0 202- No [id number] TAKE 1 Univers 800 mg 9-06 10-04 TABLET BY ity of tablet 00:00: 00:00 MOUTH [place] 00 :00 THREE Medical TIMES [place] DAILY semaglutide 2021-0 Yes [id number] .25mg inject Univers (OZEMPIC) 8-17 0.25 mg ity of 0.25 mg or 00:00: under the [place] 0.5 mg(2 00 skin Medical mg/1.5 mL) weekly. Branch PnIj semaglutide 2021-0 Yes [id number] .25mg inject Univers (OZEMPIC) 8-17 0.25 mg ity of 0.25 mg or 00:00: under the [place] 0.5 mg(2 00 skin Medical mg/1.5 mL) weekly. Branch PnIj semaglutide 2021-0 Yes [id number] .25mg inject Univers (OZEMPIC) 8-17 0.25 mg ity of 0.25 mg or 00:00: under the [place] 0.5 mg(2 00 skin Medical mg/1.5 mL) weekly. Branch PnIj semaglutide 2021-0 Yes [id number] .25mg inject Univers (OZEMPIC) 8-17 0.25 mg ity of 0.25 mg or 00:00: under the [place] 0.5 mg(2 00 skin Medical mg/1.5 mL) weekly. Branch PnIj semaglutide 0 Yes [id number] .25mg inject Univers (OZEMPIC) 8-17 0.25 mg ity of 0.25 mg or 00:00: under the [place] 0.5 mg(2 00 skin Medical mg/1.5 mL) weekly. Branch PnIj semaglutide 2021-0 Yes [id number] .25mg inject Univers (OZEMPIC) 8-17 0.25 mg ity of 0.25 mg or 00:00: under the [place] 0.5 mg(2 00 skin Medical mg/1.5 mL) weekly. Branch PnIj semaglutide 2021-0 Yes [id number] .25mg inject Univers (OZEMPIC) 8-17 0.25 mg ity of 0.25 mg or 00:00: under the [place] 0.5 mg(2 00 skin Medical mg/1.5 mL) weekly. Branch PnIj semaglutide 2021-0 Yes [id number] .25mg inject Univers (OZEMPIC) 8-17 0.25 mg ity of 0.25 mg or 00:00: under the [place] 0.5 mg(2 00 skin Medical mg/1.5 mL) weekly. Branch PnIj semaglutide 2021-0 Yes [id number] .25mg inject Univers (OZEMPIC) 8-17 0.25 mg ity of 0.25 mg or 00:00: under the [place] 0.5 mg(2 00 skin Medical mg/1.5 mL) weekly. Branch JaidenIj semaglutide 2021-0 Yes [id number] .25mg inject Univers (OZEMPIC) 8-17 0.25 mg ity of 0.25 mg or 00:00: under the [place] 0.5 mg(2 00 skin Medical mg/1.5 mL) weekly. Branch PnIj semaglutide 2021-0 Yes [id number] .25mg inject Univers (OZEMPIC) 8-17 0.25 mg ity of 0.25 mg or 00:00: under the [place] 0.5 mg(2 00 skin Medical mg/1.5 mL) weekly. Branch JaidenIj semaglutide 2021-0 Yes [id number] .25mg inject Univers (OZEMPIC) 8-17 0.25 mg ity of 0.25 mg or 00:00: under the [place] 0.5 mg(2 00 skin Medical mg/1.5 mL) weekly. Branch JaidenIj semaglutide 2021-0 Yes [id number] .25mg inject Univers (OZEMPIC) 8-17 0.25 mg ity of 0.25 mg or 00:00: under the [place] 0.5 mg(2 00 skin Medical mg/1.5 mL) weekly. Branch JaidenIj semaglutide 2021-0 Yes [id number] .25mg inject Univers (OZEMPIC) 8-17 0.25 mg ity of 0.25 mg or 00:00: under the [place] 0.5 mg(2 00 skin Medical mg/1.5 mL) weekly. Branch PnIj semaglutide 2021-0 Yes [id number] .25mg inject Univers (OZEMPIC) 8-17 0.25 mg ity of 0.25 mg or 00:00: under the [place] 0.5 mg(2 00 skin Medical mg/1.5 mL) weekly. Branch PnIj semaglutide 2021-0 Yes [id number] .25mg inject Univers (OZEMPIC) 8-17 0.25 mg ity of 0.25 mg or 00:00: under the [place] 0.5 mg(2 00 skin Medical mg/1.5 mL) weekly. Branch JaidenIj flash 0 Yes [id number] 1{each} Apply 1 U nivers glucose 5-20 Each to ity of sensor 00:00: skin every (FREESTYLE 00 14 Medical RASHARD 2 (fourteen) Branch SENSOR) Kit days. Dx E11.9 flash 2021-0 Yes [id number] 1{each} 1 Each Un cali glucose 5-20 daily. Dx ity of scanning 00:00: E11.9 [place] reader Medical (FREESTYLE Branch RASHARD 2 READER) Misc insulin NPH Yes [id number] 45U inject Univers and regular 5-20 45-55 ity of human 70-30 00:00: Units (NOVOLIN 00 under the Medica l 70/30 U-100 skin 2 Branch INSULIN) (two) 100 unit/mL times (70-30) daily injection before breakfast and dinner. atorvastati 0 Yes 80mg Take 1 Univ ers n 80 mg 5-20 tablet by ity of tablet 00:00: mouth at [place] 00 bedtime. Medical Branch Blood-Gluco Yes [id number] Use 3 Univers se Meter 5-20 times ity of (TRUE 00:00: daily. Dx [place] METRIX 00 E11.9 Medical GLUCOSE Branch METER) Mis blood sugar Yes [id number] Use 3 Univers diagnostic 5-20 times ity of (TRUE 00:00: daily. Dx [place] METRIX 00 E11.9 Medical GLUCOSE Branch TEST STRIP) strip flash Yes [id number] 1{each} Apply 1 U nivers glucose 5-20 Each to ity of sensor 00:00: skin every (FREESTYLE 00 14 Medical RASHARD 2 (fourteen) Branch SENSOR) Kit days. Dx E11.9 flash 2021-0 Yes [id number] 1{each} 1 Each Un cali glucose 5-20 daily. Dx ity of scanning 00:00: E11.9 [place] reader 00 Medical (FREESTYLE Branch RASHARD 2 READER) Misc insulin NPH 0 Yes [id number] 45U inject Univers and regular 5-20 45-55 ity of human 70-30 00:00: Units [place] (NOVOLIN 00 under the Medica l 70/30 U-100 skin 2 Branch INSULIN) (two) 100 unit/mL times (70-30) daily injection before breakfast and dinner. atorvastati Yes 80mg Take 1 Univ ers n 80 mg 5-20 tablet by ity of tablet 00:00: mouth at [place] 00 bedtime. Medical Branch Blood-Gluco Yes [id number] Use 3 Univers se Meter 5-20 times ity of (TRUE 00:00: daily. Dx [place] METRIX 00 E11.9 Medical GLUCOSE Branch METER) Misc blood sugar Yes [id number] Use 3 Univers diagnostic 5-20 times ity of (TRUE 00:00: daily. Dx [place] METRIX 00 E11.9 Medical GLUCOSE Branch TEST STRIP) strip flash 2021- Yes [id number] 1{each} Apply 1 U nivers glucose 5-20 Each to ity of sensor 00:00: skin every [place] (FREESTYLE 00 14 Medical RASHARD 2 (fourteen) Branch SENSOR) Kit days. Dx E11.9 flash 2021-0 Yes [id number] 1{each} 1 Each Un cali glucose 5-20 daily. Dx ity of scanning 00:00: E11.9 [place] reader 00 Medical (FREESTYLE Branch RASHARD 2 READER) Misc insulin NPH Yes [id number] 45U inject Univers and regular 5-20 45-55 ity of human 70-30 00:00: Units [place] (NOVOLIN 00 under the Medica l 70/30 U-100 skin 2 Branch INSULIN) (two) 100 unit/mL times (70-30) daily injection before breakfast and dinner. atorvastati Yes 80mg Take 1 Univ ers n 80 mg 5-20 tablet by ity of tablet 00:00: mouth at [place] 00 bedtime. Medical Branch Blood-Gluco Yes [id number] Use 3 Univers se Meter 5-20 times ity of (TRUE 00:00: daily. Dx [place] METRIX 00 E11.9 Medical GLUCOSE Branch METER) Misc blood sugar Yes [id number] Use 3 Univers diagnostic 5-20 times ity of (TRUE 00:00: daily. Dx [place] METRIX 00 E11.9 Medical GLUCOSE Branch TEST STRIP) strip flash 2021- Yes [id number] 1{each} Apply 1 U nivers glucose 5-20 Each to ity of sensor 00:00: skin every (FREESTYLE 00 14 Medical RASHARD 2 (fourteen) Branch SENSOR) Kit days. Dx E11.9 flash 0 Yes [id number] 1{each} 1 Each Un cali glucose 5-20 daily. Dx ity of scanning 00:00: E11.9 [place] reader 00 Medical (FREESTYLE Branch RASHARD 2 READER) Misc insulin NPH Yes [id number] 45U inject Univers and regular 5-20 45-55 ity of human 70-30 00:00: Units [place] (NOVOLIN 00 under the Medica l 70/30 U-100 skin 2 Branch INSULIN) (two) 100 unit/mL times (70-30) daily injection before breakfast and dinner. atorvastati Yes 80mg Take 1 Univ ers n 80 mg 5-20 tablet by ity of tablet 00:00: mouth at [place] 00 bedtime. Medical Branch Blood-Gluco Yes [id number] Use 3 Univers se Meter 5-20 times ity of (TRUE 00:00: daily. Dx [place] METRIX 00 E11.9 Medical GLUCOSE Branch METER) Mis blood sugar Yes [id number] Use 3 Univers diagnostic 5-20 times ity of (TRUE 00:00: daily. Dx [place] METRIX 00 E11.9 Medical GLUCOSE Branch TEST STRIP) strip flash Yes [id number] 1{each} Apply 1 U nivers glucose 5-20 Each to ity of sensor 00:00: skin every (FREESTYLE 00 14 Medical RASHARD 2 (fourteen) Branch SENSOR) Kit days. Dx E11.9 flash 0 Yes [id number] 1{each} 1 Each Un cali glucose 5-20 daily. Dx ity of scanning 00:00: E11.9 [place] reader 00 Medical (FREESTYLE Branch RASHARD 2 READER) Misc insulin NPH 0 Yes [id number] 45U inject [facility] and regular 5-20 45-55 ity of human 70-30 00:00: Units [place] (NOVOLIN 00 under the Medica l 70/30 U-100 skin 2 Branch INSULIN) (two) 100 unit/mL times (70-30) daily injection before breakfast and dinner. atorvastati 2022-0 Yes 80mg Take 1 [facility] ers n 80 mg 5-20 tablet by ity of tablet 00:00: mouth at [place] 00 bedtime. Medical Branch Blood-Gluco Yes [id number] Use 3 [facility] se Meter 5-20 times ity of (TRUE 00:00: daily. Dx [place] METRIX 00 E11.9 Medical GLUCOSE Branch METER) Misc blood sugar 2021-0 Yes [id number] Use 3 [facility] diagnostic 5-20 times ity of (TRUE 00:00: daily. Dx METRIX E11.9 Medical GLUCOSE Branch TEST STRIP) strip flash 2021-0 Yes [id number] 1{each} Apply 1 U nivers glucose 5-20 Each to ity of sensor 00:00: skin every (FREESTYLE 14 Medical RASHARD 2 (fourteen) Branch SENSOR) Kit days. Dx E11.9 flash 2021-0 Yes [id number] 1{each} 1 Each [place] glucose 5-20 daily. Dx ity of scanning 00:00: E11.9 [place] reader 00 Medical (FREESTYLE Branch RASHARD 2 READER) Misc insulin NPH Yes [id number] 45U inject [facility] and regular 5-20 45-55 ity of human 70-30 00:00: Units [place] (NOVOLIN 00 under the Medica l 70/30 U-100 skin 2 Branch INSULIN) (two) 100 unit/mL times (70-30) daily injection before breakfast and dinner. atorvastati Yes 80mg Take 1 [facility] ers n 80 mg 5-20 tablet by ity of tablet 00:00: mouth at [place] 00 bedtime. Medical Branch Blood-Gluco 2021- Yes [id number] Use 3 [facility] se Meter 5-20 times ity of (TRUE 00:00: daily. Dx METRIX 00 E11.9 Medical GLUCOSE Branch METER) Misc blood sugar 2021- Yes [id number] Use 3 [facility] diagnostic 5-20 times ity of (TRUE 00:00: daily. Dx METRIX 00 E11.9 Medical GLUCOSE Branch TEST STRIP) strip flash 2021-0 Yes [id number] 1{each} Apply 1 U nivers glucose 5-20 Each to ity of sensor 00:00: skin every (FREESTYLE 00 14 Medical RASHARD 2 (fourteen) Branch SENSOR) Kit days. Dx E11.9 flash 2021-0 Yes [id number] 1{each} 1 Each [facility] [place] glucose 5-20 daily. Dx ity of scanning 00:00: E11.9 [place] reader 00 Medical (FREESTYLE Branch RASHARD 2 READER) Misc insulin NPH 0 Yes [id number] 45U inject [facility] and regular 5-20 45-55 ity of human 70-30 00:00: Units (NOVOLIN 00 under the Medica l 70/30 U-100 skin 2 Branch INSULIN) (two) 100 unit/mL times (70-30) daily injection before breakfast and dinner. atorvastati Yes 80mg Take 1 [facility] ers n 80 mg 5-20 tablet by ity of tablet 00:00: mouth at [place] 00 bedtime. Medical Branch Blood-Gluco Yes [id number] Use 3 [facility] se Meter 5-20 times ity of (TRUE 00:00: daily. Dx [place] METRIX 00 E11.9 Medical GLUCOSE Branch METER) Misc blood sugar Yes [id number] Use 3 [facility] diagnostic 5-20 times ity of (TRUE 00:00: daily. Dx [place] METRIX 00 E11.9 Medical GLUCOSE Branch TEST STRIP) strip flash Yes [id number] 1{each} Apply 1 U nivers glucose 5-20 Each to ity of sensor 00:00: skin every (FREESTYLE 00 14 Medical RASHARD 2 (fourteen) Branch SENSOR) Kit days. Dx E11.9 flash 2021-0 Yes [id number] 1{each} 1 Each [facility] glucose 5-20 daily. Dx ity of scanning 00:00: E11.9 [place] reader 00 Medical (FREESTYLE Branch RASHARD 2 READER) Misc insulin NPH Yes [id number] 45U inject [facility] and regular 5-20 45-55 ity of human 70-30 00:00: Units (NOVOLIN 00 under the Medica l 70/30 U-100 skin 2 Branch INSULIN) (two) 100 unit/mL times (70-30) daily injection before breakfast and dinner. atorvastati Yes 80mg Take 1 [facility] ers n 80 mg 5-20 tablet by ity of tablet 00:00: mouth at [place] 00 bedtime. Medical Branch Blood-Gluco Yes [id number] Use 3 [facility] se Meter 5-20 times ity of (TRUE 00:00: daily. Dx [place] METRIX E11.9 Medical GLUCOSE Branch METER) Misc blood sugar Yes [id number] Use 3 [facility] diagnostic 5-20 times ity of (TRUE 00:00: daily. Dx METRIX E11.9 Medical GLUCOSE Branch TEST STRIP) strip flash 2021-0 Yes [id number] 1{each} Apply 1 U nivers glucose 5-20 Each to ity of sensor 00:00: skin every (FREESTYLE 00 14 Medical RASHARD 2 (fourteen) Branch SENSOR) Kit days. Dx E11.9 flash 2021-0 Yes [id number] 1{each} 1 Each [facility] glucose 5-20 daily. Dx ity of scanning 00:00: E11.9 [place] reader 00 Medical (FREESTYLE Branch RASHARD 2 READER) Misc insulin NPH Yes [id number] 45U inject [facility] and regular 5-20 45-55 ity of human 70-30 00:00: Units (NOVOLIN 00 under the Medica l 70/30 U-100 skin 2 Branch INSULIN) (two) 100 unit/mL times (70-30) daily injection before breakfast and dinner. atorvastati Yes 80mg Take 1 [facility] ers n 80 mg 5-20 tablet by ity of tablet 00:00: mouth at [place] 00 bedtime. Medical Branch Blood-Gluco Yes [id number] Use 3 [facility] se Meter 5-20 times ity of (TRUE 00:00: daily. Dx METRIX E11.9 Medical GLUCOSE Branch METER) Misc blood sugar Yes [id number] Use 3 [facility] diagnostic 5-20 times ity of (TRUE 00:00: daily. Dx [place] METRIX 00 E11.9 Medical GLUCOSE Branch TEST STRIP) strip flash 2021- Yes [id number] 1{each} Apply 1 U nivers glucose 5-20 Each to ity of sensor 00:00: skin every [place] (FREESTYLE 00 14 Medical RASHARD 2 (fourteen) Branch SENSOR) Kit days. Dx E11.9 flash 2021-0 Yes [id number] 1{each} 1 Each [facility] [place] glucose 5-20 daily. Dx ity of scanning 00:00: E11.9 [place] reader 00 Medical (FREESTYLE Branch RASHARD 2 READER) Misc insulin NPH 2021-0 Yes [id number] 45U inject [facility] and regular 5-20 45-55 ity of human 70-30 00:00: Units (NOVOLIN 00 under the Medica l 70/30 U-100 skin 2 Branch INSULIN) (two) 100 unit/mL times (70-30) daily injection before breakfast and dinner. atorvastati 2021-0 Yes 80mg Take 1 [facility] ers n 80 mg 5-20 tablet by ity of tablet 00:00: mouth at [place] 00 bedtime. Medical Branch Blood-Gluco 2021-0 Yes [id number] Use 3 [facility] se Meter 5-20 times ity of (TRUE 00:00: daily. Dx [place] METRIX 00 E11.9 Medical GLUCOSE Branch METER) Misc blood sugar 0 Yes [id number] Use 3 [facility] diagnostic 5-20 times ity of (TRUE 00:00: daily. Dx [place] METRIX 00 E11.9 Medical GLUCOSE Branch TEST STRIP) strip flash 0 Yes [id number] 1{each} Apply 1 U nivers glucose 5-20 Each to ity of sensor 00:00: skin every [place] (FREESTYLE 00 14 Medical RASHARD 2 (fourteen) Branch SENSOR) Kit days. Dx E11.9 flash 2021-0 Yes [id number] 1{each} 1 Each [facility] [place] glucose 5-20 daily. Dx ity of scanning 00:00: E11.9 [place] reader 00 Medical (FREESTYLE Branch RASHARD 2 READER) Misc insulin NPH 2021-0 Yes [id number] 45U inject [facility] and regular 5-20 45-55 ity of human 70-30 00:00: Units (NOVOLIN 00 under the Medica l 70/30 U-100 skin 2 Branch INSULIN) (two) 100 unit/mL times (70-30) daily injection before breakfast and dinner. atorvastati 2021-0 Yes 80mg Take 1 [facility] ers n 80 mg 5-20 tablet by ity of tablet 00:00: mouth at [place] 00 bedtime. Medical Branch Blood-Gluco 2021-0 Yes [id number] Use 3 [facility] se Meter 5-20 times ity of (TRUE 00:00: daily. Dx [place] METRIX 00 E11.9 Medical GLUCOSE Branch METER) Mis blood sugar 2021-0 Yes [id number] Use 3 [facility] diagnostic 5-20 times ity of (TRUE 00:00: daily. Dx [place] METRIX 00 E11.9 Medical GLUCOSE Branch TEST STRIP) strip flash 2021-0 Yes [id number] 1{each} Apply 1 U nivers glucose 5-20 Each to ity of sensor 00:00: skin every [place] (FREESTYLE 00 14 Medical RASHARD 2 (fourteen) Branch SENSOR) Kit days. Dx E11.9 flash 2021-0 Yes [id number] 1{each} 1 Each [facility] [place] glucose 5-20 daily. Dx ity of scanning 00:00: E11.9 [place] reader 00 Medical (FREESTYLE Branch RASHARD 2 READER) Misc atorvastati 0 Yes 80mg Take 1 [facility] ers n 80 mg 5-20 tablet by ity of tablet 00:00: mouth at [place] 00 bedtime. Medical Branch Blood-Gluco 0 Yes [id number] Use 3 [facility] se Meter 5-20 times ity of (TRUE 00:00: daily. Dx [place] METRIX E11.9 Medical GLUCOSE Branch METER) [facility] [place] sugar 2021-0 Yes [id number] Use 3 [facility] diagnostic 5-20 times ity of (TRUE 00:00: daily. Dx [place] METRIX E11.9 Medical GLUCOSE Branch TEST STRIP) strip flash 2021-0 Yes [id number] 1{each} Apply 1 U nivers glucose 5-20 Each to ity of sensor 00:00: skin every (FREESTYLE 00 14 Medical RASHARD 2 (fourteen) Branch SENSOR) Kit days. Dx E11.9 flash 2021-0 Yes [id number] 1{each} 1 Each [facility] [place] glucose 5-20 daily. Dx ity of scanning 00:00: E11.9 [place] reader 00 Medical (FREESTYLE Branch RASHARD 2 READER) Misc atorvastati 2021-0 Yes 80mg Take 1 Univ ers n 80 mg 5-20 tablet by ity of tablet 00:00: mouth at [place] 00 bedtime. Medical Branch Blood-Gluco 2021-0 Yes [id number] Use 3 [facility] se Meter 5-20 times ity of (TRUE 00:00: daily. Dx [place] METRIX E11.9 Medical GLUCOSE Branch METER) Mis blood sugar 2021-0 Yes [id number] Use 3 [facility] diagnostic 5-20 times ity of (TRUE 00:00: daily. Dx [place] METRIX E11.9 Medical GLUCOSE Branch TEST STRIP) strip flash 2021-0 Yes [id number] 1{each} Apply 1 U nivers glucose 5-20 Each to ity of sensor 00:00: skin every (FREESTYLE 00 14 Medical RASHARD 2 (fourteen) Branch SENSOR) Kit days. Dx E11.9 flash 2021-0 Yes [id number] 1{each} 1 Each [place] glucose 5-20 daily. Dx ity of scanning 00:00: E11.9 [place] reader 00 Medical (FREESTYLE Branch RASHARD 2 READER) Misc atorvastati 2021-0 Yes 80mg Take 1 Univ ers n 80 mg 5-20 tablet by ity of tablet 00:00: mouth at [place] 00 bedtime. Medical Branch Blood-Gluco 2021-0 Yes [id number] Use 3 [facility] se Meter 5-20 times ity of (TRUE 00:00: daily. Dx METRIX E11.9 Medical GLUCOSE Branch METER) Mis blood sugar 2021-0 Yes [id number] Use 3 [facility] diagnostic 5-20 times ity of (TRUE 00:00: daily. Dx METRIX E11.9 Medical GLUCOSE Branch TEST STRIP) strip flash 2021-0 Yes [id number] 1{each} Apply 1 U nivers glucose 5-20 Each to ity of sensor 00:00: skin every (FREESTYLE 00 14 Medical RASHARD 2 (fourteen) Branch SENSOR) Kit days. Dx E11.9 flash 2021-0 Yes [id number] 1{each} 1 Each [place] glucose 5-20 daily. Dx ity of scanning 00:00: E11.9 [place] reader 00 Medical (FREESTYLE Branch RASHARD 2 READER) Misc atorvastati 2021-0 Yes 80mg Take 1 Univ ers n 80 mg 5-20 tablet by ity of tablet 00:00: mouth at [place] 00 bedtime. Medical Branch Blood-Gluco 2021-0 Yes [id number] Use 3 [facility] se Meter 5-20 times ity of (TRUE 00:00: daily. Dx [place] METRIX E11.9 Medical GLUCOSE Branch METER) [facility] blood sugar Yes [id number] Use 3 [facility] diagnostic 5-20 times ity of (TRUE 00:00: daily. Dx [place] METRIX 00 E11.9 Medical GLUCOSE Branch TEST STRIP) strip flash Yes [id number] 1{each} Apply 1 U nivers glucose 5-20 Each to ity of sensor 00:00: skin every [place] (FREESTYLE 00 14 Medical RASHARD 2 (fourteen) Branch SENSOR) Kit days. Dx E11.9 flash 0 Yes [id number] 1{each} 1 Each [place] glucose 5-20 daily. Dx ity of scanning 00:00: E11.9 [place] reader 00 Medical (FREESTYLE Branch RASHARD 2 READER) [facility] atorvastati Yes 80mg Take 1 [facility] ers n 80 mg 5-20 tablet by ity of tablet 00:00: mouth at [place] 00 bedtime. Medical Branch Blood-Gluco Yes [id number] Use 3 [facility] se Meter 5-20 times ity of (TRUE 00:00: daily. Dx [place] METRIX 00 E11.9 Medical GLUCOSE Branch METER) [facility] blood sugar Yes [id number] Use 3 [facility] diagnostic 5-20 times ity of (TRUE 00:00: daily. Dx [place] METRIX 00 E11.9 Medical GLUCOSE Branch TEST STRIP) strip insulin NPH 2021- No [id number] 45U inject [facility] and regular 5-20 -07 45-55 ity of human 70-30 00:00: 00:[place] Units [place] (NOVOLIN 00 :00 under the Medica l 70/30 U-100 skin 2 Branch INSULIN) (two) 100 unit/mL times (70-30) daily injection before breakfast and dinner. GABAPENTIN 2021- No [id number] TAKE 1 [facility] 800 mg 2-25 09-06 TABLET BY ity of tablet 00:00: 00:00 MOUTH [place] 00 :00 THREE Medical TIMES Branch DAILY GABAPENTIN 2021- No [id number] TAKE 1 [facility] 800 mg 2-25 09-06 TABLET BY ity of tablet 00:00: 00:00 MOUTH [place] 00 :00 THREE Medical TIMES Branch DAILY MIRTAZAPINE 2020-05 Yes [id number] 15mg TAKE 1 [facility] 15 mg 2-20 TABLET BY ity of tablet 00:00: [address]TH [address]-05 Yes [id number] 15mg TAKE 1 [facility] 15 mg 2-20 TABLET BY ity of tablet 00:00: [place] [address]-05 Yes [id number] 15mg TAKE 1 [facility] 15 mg 2-20 TABLET BY ity of tablet 00:00: [place]TH [place] [address] 2020-05 Yes [id number] 15mg TAKE 1 [facility] 15 mg 2-20 TABLET BY ity of tablet 00:00: [place]TH [place] [address] 2020-05 Yes [id number] 15mg TAKE 1 [facility] 15 mg 2-20 TABLET BY ity of tablet 00:00: MOUTH AT [address] 2020-05 Yes [id number] 15mg TAKE 1 [facility] 15 mg 2-20 TABLET BY ity of tablet 00:00: MOUTH AT [address] 2020-05 Yes [id number] 15mg TAKE 1 [facility] 15 mg 2-20 TABLET BY ity of tablet 00:00: MOUTH AT [address] 2020-05 Yes [id number] 15mg TAKE 1 [facility] 15 mg 2-20 TABLET BY ity of tablet 00:00: [place]TH [place] [address] 2020-05 Yes [id number] 15mg TAKE 1 [facility] 15 mg 2-20 TABLET BY ity of tablet 00:00: M[place]TH [address] 2020-05 Yes [id number] 15mg TAKE 1 [facility] 15 mg 2-20 TABLET BY ity of tablet 00:00: [place]TH [address] 2020-05 Yes [id number] 15mg TAKE 1 [facility] 15 mg 2-20 TABLET BY ity of tablet 00:00: MOUTH [place] [address] 2020-05 Yes [id number] 15mg TAKE 1 [facility] 15 mg 2-20 TABLET BY ity of tablet 00:00: M[place]TH [address] 2020-05 Yes [id number] 15mg TAKE 1 [facility] 15 mg 2-20 TABLET BY ity of tablet 00:00: MOUTH AT [place] [facility] MIRTAZAPINE 2020-05 Yes [id number] 15mg TAKE 1 [facility] 15 mg 2-20 TABLET BY ity of tablet 00:00: MOUTH AT [place] [facility] Branch MIRTAZAPINE 2020-05 Yes [id number] 15mg TAKE 1 Univers 15 mg 2-20 TABLET BY ity of tablet 00:00: MOUTH AT [place] [facility] MIRTAZAPINE 2020-05 Yes [id number] 15mg TAKE 1 Univers 15 mg 2-20 TABLET BY ity of tablet 00:00: MOUTH AT [address] ondansetron Yes [id number] 4mg Take 1 Univers 4 mg 8-06 tablet by ity of disintegrat 00:00: mouth [place] ing tablet 00 every 8 Medica l (eight) Branch hours as needed for Nausea and Vomiting (N/V). ondansetron Yes [id number] 4mg Take 1 Univers 4 mg 8-06 tablet by ity of disintegrat 00:00: mouth [place] ing tablet 00 every 8 Medica l (eight) Branch hours as needed for Nausea and Vomiting (N/V). ondansetron Yes [id number] 4mg Take 1 [facility] 4 mg 8-06 tablet by ity of disintegrat 00:00: mouth [place] ing tablet 00 every 8 Medica l (eight) Branch hours as needed for Nausea and Vomiting (N/V). ondansetron Yes [id number] 4mg Take 1 Univers 4 mg 8-06 tablet by ity of disintegrat 00:00: mouth [place] ing tablet 00 every 8 Medica l (eight) Branch hours as needed for Nausea and Vomiting (N/V). ondansetron Yes [id number] 4mg Take 1 Univers 4 mg 8-06 tablet by ity of disintegrat 00:00: mouth [place] ing tablet 00 every 8 Medica l (eight) Branch hours as needed for Nausea and Vomiting (N/V). ondansetron Yes [id number] 4mg Take 1 Univers 4 mg 8-06 tablet by ity of disintegrat 00:00: mouth [place] ing tablet 00 every 8 Medica l (eight) Branch hours as needed for Nausea and Vomiting (N/V). ondansetron 2020-0 Yes [id number] 4mg Take 1 Univers 4 mg 8-06 tablet by ity of disintegrat 00:00: mouth [place] ing tablet 00 every 8 Medica l (eight) Branch hours as needed for Nausea and Vomiting (N/V). ondansetron 2020-0 Yes [id number] 4mg Take 1 Univers 4 mg 8-06 tablet by ity of disintegrat 00:00: mouth [place] ing tablet 00 every 8 Medica l (eight) Branch hours as needed for Nausea and Vomiting (N/V). ondansetron 2020-0 Yes [id number] 4mg Take 1 [facility] 4 mg 8-06 tablet by ity of disintegrat 00:00: mouth [place] ing tablet 00 every 8 Medica l (eight) Branch hours as needed for Nausea and Vomiting (N/V). ondansetron 2020-0 Yes [id number] 4mg Take 1 Univers 4 mg 8-06 tablet by ity of disintegrat 00:00: mouth [place] ing tablet 00 every 8 Medica l (eight) Branch hours as needed for Nausea and Vomiting (N/V). ondansetron 2020-0 Yes [id number] 4mg Take 1 Univers 4 mg 8-06 tablet by ity of disintegrat 00:00: mouth [place] ing tablet 00 every 8 Medica l (eight) Branch hours as needed for Nausea and Vomiting (N/V). ondansetron 2020-0 Yes [id number] 4mg Take 1 Univers 4 mg 8-06 tablet by ity of disintegrat 00:00: mouth [place] ing tablet 00 every 8 Medica l (eight) Branch hours as needed for Nausea and Vomiting (N/V). ondansetron 2020-0 Yes [id number] 4mg Take 1 Univers 4 mg 8-06 tablet by ity of disintegrat 00:00: mouth [place] ing tablet 00 every 8 Medica l (eight) Branch hours as needed for Nausea and Vomiting (N/V). ondansetron 2020-0 Yes [id number] 4mg Take 1 Univers 4 mg 8-06 tablet by ity of disintegrat 00:00: mouth [place] ing tablet 00 every 8 Medica l (eight) Branch hours as needed for Nausea and Vomiting (N/V). ondansetron 2020-0 Yes [id number] 4mg Take 1 [facility] 4 mg 8-06 tablet by ity of disintegrat 00:00: mouth [place] ing tablet 00 every 8 Medica l (eight) Branch hours as needed for Nausea and Vomiting (N/V). ondansetron 2020-0 Yes [id number] 4mg Take 1 Univers 4 mg 8-06 tablet by ity of disintegrat 00:00: mouth [place] ing tablet 00 every 8 Medica l (eight) Branch hours as needed for Nausea and Vomiting (N/V). aspirin 81 2020-0 Yes [id number] 81mg Take 1 U nivers mg chewable 7-07 tablet by ity of tablet 00:00: mouth [place] 00 daily. Medical Branch clopidogreL 2020-0 Yes [id number] 75mg Take 1 Univers 75 mg 7-07 tablet by ity of tablet 00:00: mouth [place] 00 daily. Medical Branch aspirin 81 2020-0 Yes [id number] 81mg Take 1 U nivers mg chewable 7-07 tablet by ity of tablet 00:00: mouth [place] 00 daily. Medical Branch clopidogreL 2020-0 Yes [id number] 75mg Take 1 Univers 75 mg 7-07 tablet by ity of tablet 00:00: mouth [place] 00 daily. Medical Branch aspirin 81 2020-0 Yes [id number] 81mg Take 1 U nivers mg chewable 7-07 tablet by ity of tablet 00:00: mouth [place] 00 daily. Medical Branch clopidogreL 2020-0 Yes [id number] 75mg Take 1 [facility] 75 mg 7-07 tablet by ity of tablet 00:00: mouth [place] 00 daily. Medical Branch aspirin 81 2020-0 Yes [id number] 81mg Take 1 U nivers mg chewable 7-07 tablet by ity of tablet 00:00: mouth [place] 00 daily. Medical Branch clopidogreL 2020-0 Yes [id number] 75mg Take 1 [facility] 75 mg 7-07 tablet by ity of tablet 00:00: mouth [place] 00 daily. Medical Branch aspirin 81 2020-0 Yes [id number] 81mg Take 1 U nivers mg chewable 7-07 tablet by ity of tablet 00:00: mouth [place] 00 daily. Medical Branch clopidogreL 2020-0 Yes [id number] 75mg Take 1 [facility] 75 mg 7-07 tablet by ity of tablet 00:00: mouth [place] 00 daily. Medical Branch aspirin 81 2020-0 Yes [id number] 81mg Take 1 U nivers mg chewable 7-07 tablet by ity of tablet 00:00: mouth [place] 00 daily. Medical Branch clopidogreL 202-0 Yes [id number] 75mg Take 1 [facility] 75 mg 7-07 tablet by ity of tablet 00:00: mouth [place] 00 daily. Medical Branch aspirin 81 2020-0 Yes [id number] 81mg Take 1 U nivers mg chewable 7-07 tablet by ity of tablet 00:00: mouth [place] 00 daily. Medical Branch clopidogreL 2020-0 Yes [id number] 75mg Take 1 [facility] 75 mg 7-07 tablet by ity of tablet 00:00: mouth [place] 00 daily. Medical Branch aspirin 81 2020-0 Yes [id number] 81mg Take 1 U nivers mg chewable 7-07 tablet by ity of tablet 00:00: mouth [place] 00 daily. Medical Branch clopidogreL 2020-0 Yes [id number] 75mg Take 1 [facility] 75 mg 7-07 tablet by ity of tablet 00:00: mouth [place] 00 daily. Medical Branch aspirin 81 2020-0 Yes [id number] 81mg Take 1 U nivers mg chewable 7-07 tablet by ity of tablet 00:00: mouth [place] 00 daily. Medical Branch clopidogreL 2020-0 Yes [id number] 75mg Take 1 [facility] 75 mg 7-07 tablet by ity of tablet 00:00: mouth [place] 00 daily. Medical Branch aspirin 81 2020-0 Yes [id number] 81mg Take 1 U nivers mg chewable 7-07 tablet by ity of tablet 00:00: mouth [place] 00 daily. Medical Branch clopidogreL 202-0 Yes [id number] 75mg Take 1 [facility] 75 mg 7-07 tablet by ity of tablet 00:00: mouth [place] 00 daily. Medical Branch aspirin 81 2020-0 Yes [id number] 81mg Take 1 U nivers mg chewable 7-07 tablet by ity of tablet 00:00: mouth [place] 00 daily. Medical Branch clopidogreL 202-0 Yes [id number] 75mg Take 1 [facility] 75 mg 7-07 tablet by ity of tablet 00:00: mouth [place] 00 daily. Medical Branch aspirin 81 2020-0 Yes [id number] 81mg Take 1 U nivers mg chewable 7-07 tablet by ity of tablet 00:00: mouth [place] 00 daily. Medical Branch clopidogreL 2021-0 Yes [id number] 75mg Take 1 [facility] 75 mg 7-07 tablet by ity of tablet 00:00: mouth [place] 00 daily. Medical Branch aspirin 81 2020-0 Yes [id number] 81mg Take 1 U nivers mg chewable 7-07 tablet by ity of tablet 00:00: mouth [place] 00 daily. Medical Branch clopidogreL 1-0 Yes [id number] 75mg Take 1 [facility] 75 mg 7-07 tablet by ity of tablet 00:00: mouth [place] 00 daily. Medical Branch aspirin 81 2020-0 Yes [id number] 81mg Take 1 U nivers mg chewable 7-07 tablet by ity of tablet 00:00: mouth [place] 00 daily. Medical Branch clopidogreL 1-0 Yes [id number] 75mg Take 1 [facility] 75 mg 7-07 tablet by ity of tablet 00:00: mouth [place] 00 daily. Medical Branch aspirin 81 2020-0 Yes [id number] 81mg Take 1 U nivers mg chewable 7-07 tablet by ity of tablet 00:00: mouth [place] 00 daily. Medical Branch clopidogreL 2020-0 Yes [id number] 75mg Take 1 [facility] 75 mg 7-07 tablet by ity of tablet 00:00: mouth [place] 00 daily. Medical Branch aspirin 81 2020-0 Yes [id number] 81mg Take 1 U nivers mg chewable 7-07 tablet by ity of tablet 00:00: mouth [place] 00 daily. Medical Branch clopidogreL 1-0 Yes [id number] 75mg Take 1 [facility] 75 mg 7-07 tablet by ity of tablet 00:00: mouth [place] 00 daily. Medical Branch ezetimibe 2020-0 Yes [id number] 10mg Take 1 U nivers 10 mg 6-18 tablet by ity of tablet 00:00: mouth [place] 00 daily. Medical Branch furosemide 1-0 Yes [id number] 1 tablet Univers 20 mg 6-18 02 as needed ity of tablet 00:00: for leg [place] 00 swelling Medical Branch ezetimibe 1-0 Yes [id number] 10mg Take 1 U nivers 10 mg 6-18 tablet by ity of tablet 00:00: mouth [place] 00 daily. Medical Branch furosemide 1-0 Yes [id number] 1 tablet Univers 20 mg 6-18 02 as needed ity of tablet 00:00: for leg [place] 00 swelling Medical Branch ezetimibe 1-0 Yes [id number] 10mg Take 1 U nivers 10 mg 6-18 tablet by ity of tablet 00:00: mouth [place] 00 daily. Medical Branch furosemide 2021-0 Yes [id number] 1 tablet Univers 20 mg 6-18 02 as needed ity of tablet 00:00: for leg [place] swelling Medical Branch ezetimibe 1-0 Yes [id number] 10mg Take 1 U nivers 10 mg 6-18 tablet by ity of tablet 00:00: mouth [place] 00 daily. Medical Branch furosemide 2021-0 Yes [id number] 1 tablet Univers 20 mg 6-18 02 as needed ity of tablet 00:00: for leg swelling Medical Branch ezetimibe 1-0 Yes [id number] 10mg Take 1 U nivers 10 mg 6-18 tablet by ity of tablet 00:00: mouth [place] 00 daily. Medical Branch furosemide 1-0 Yes [id number] 1 tablet [facility] 20 mg 6-18 02 as needed ity of tablet 00:00: for leg swelling Medical Branch ezetimibe 1-0 Yes [id number] 10mg Take 1 U nivers 10 mg 6-18 tablet by ity of tablet 00:00: mouth [place] 00 daily. Medical Branch furosemide 1-0 Yes [id number] 1 tablet [facility] 20 mg 6-18 02 as needed ity of tablet 00:00: for leg swelling Medical Branch ezetimibe 2021-0 Yes [id number] 10mg Take 1 U nivers 10 mg 6-18 tablet by ity of tablet 00:00: mouth [place] 00 daily. Medical Branch furosemide 2021-0 Yes [id number] 1 tablet [facility] 20 mg 6-18 02 as needed ity of tablet 00:00: for leg swelling Medical Branch ezetimibe 2021-0 Yes [id number] 10mg Take 1 U nivers 10 mg 6-18 tablet by ity of tablet 00:00: mouth [place] 00 daily. Medical Branch furosemide 2021-0 Yes [id number] 1 tablet [facility] 20 mg 6-18 02 as needed ity of tablet 00:00: for leg swelling Medical Branch ezetimibe 2021-0 Yes [id number] 10mg Take 1 U nivers 10 mg 6-18 tablet by ity of tablet 00:00: mouth [place] 00 daily. Medical Branch furosemide 2020-0 Yes [id number] 1 tablet [facility] 20 mg 6-18 02 as needed ity of tablet 00:00: for leg [place] 00 swelling Medical Branch ezetimibe 2020-0 Yes [id number] 10mg Take 1 U nivers 10 mg 6-18 tablet by ity of tablet 00:00: mouth [place] 00 daily. Medical Branch furosemide 2020-0 Yes [id number] 1 tablet [facility] 20 mg 6-18 02 as needed ity of tablet 00:00: for leg [place] 00 swelling Medical Branch ezetimibe 2020-0 Yes [id number] 10mg Take 1 U nivers 10 mg 6-18 tablet by ity of tablet 00:00: mouth [place] 00 daily. Medical Branch furosemide 2020-0 Yes [id number] 1 tablet [facility] 20 mg 6-18 02 as needed ity of tablet 00:00: for leg [place] 00 swelling Medical Branch ezetimibe 2020-0 Yes [id number] 10mg Take 1 U nivers 10 mg 6-18 tablet by ity of tablet 00:00: mouth [place] 00 daily. Medical Branch ezetimibe 2020-0 Yes [id number] 10mg Take 1 U nivers 10 mg 6-18 tablet by ity of tablet 00:00: mouth [place] 00 daily. Medical Branch ezetimibe 2020-0 Yes [id number] 10mg Take 1 U nivers 10 mg 6-18 tablet by ity of tablet 00:00: mouth [place] 00 daily. Medical Branch ezetimibe 2020-0 Yes [id number] 10mg Take 1 U nivers 10 mg 6-18 tablet by ity of tablet 00:00: mouth [place] 00 daily. Medical Branch ezetimibe 2020-0 Yes [id number] 10mg Take 1 U nivers 10 mg 6-18 tablet by ity of tablet 00:00: mouth [place] 00 daily. Medical Branch furosemide 2020-0 2- No [id number] 1 tablet Univers 20 mg 6-18 -07 02 as needed ity of tablet 00:00: 00:00 for leg [place] 00 :00 swelling Medical Branch glipiZIDE 2020-0 Yes Type 2 5mg Take 0.5 Un cail 10 mg 5-06 diabetes tablets by [facility] [place] tablet 00:00[place] with (two) Medical hypoglycemi times Branch a without daily coma, with before long-term breakfast current use and of insulin dinner. mirtazapine Yes History of 15mg Take 1 Univers 15 mg 5-06 depression tablet by ity of tablet 00:00: mouth at [place] 00 bedtime. Medical Branch atorvastati Yes Coronary 80mg Take 1 Univers n 80 mg 5-06 artery tablet by ity o f tablet 00:00: disease mouth at s 00 involving bedtime. Medica l [place] [facility] coronary artery of [place] heart without angina pectoris glipiZIDE Yes Type [...] by ity of tablet 00:00: mouth at [place] [id number] bedtime. Medical Branch atorvastati Yes Coronary 80mg Take 1 Univers n 80 mg 5-06 artery tablet by ity o f tablet 00:00: disease mouth at [facility] s 00 involving bedtime. 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 Branch coronary artery of [place] heart without angina pectoris SITagliptin 2020- No [...] :00 involving daily for Medi blanquita tablet [place] 30 days. 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 Medical Branch pantoprazol Yes [id number] 40mg Take 1 Univers e 40 mg EC 1-11 tablet by ity of tablet 00:00: mouth 00 daily. Medical Branch pantoprazol Yes [id number] 40mg Take 1 Univers e 40 mg EC 1-11 tablet by ity of tablet 00:00: mouth 00 daily. Medical Branch pantoprazol Yes [id number] 40mg Take 1 Univers e 40 mg EC 1-11 tablet by ity of tablet 00:00: mouth [place] 00 daily. Medical Branch pantoprazol Yes [id number] 40mg Take 1 Univers e 40 mg EC 1-11 tablet by ity of tablet 00:00: mouth [place] 00 daily. Medical Branch pantoprazol Yes [id number] 40mg Take 1 Univers e 40 mg EC 1-11 tablet by ity of tablet 00:00: mouth [place] 00 daily. [facility] Branch pantoprazol Yes [id number] 40mg Take 1 Univers e 40 mg EC 1-11 tablet by ity of tablet 00:00: mouth [place] 00 daily. [facility] Branch pantoprazol Yes [id number] 40mg Take 1 Univers e 40 mg EC 1-11 tablet by ity of tablet 00:00: mouth [place] 00 daily. Medical Branch pantoprazol Yes [id number] 40mg Take 1 Univers e 40 mg EC 1-11 tablet by ity of tablet 00:00: mouth [place] 00 daily. [facility] Branch pantoprazol Yes [id number] 40mg Take 1 Univers e 40 mg EC 1-11 tablet by ity of tablet 00:00: mouth [place] 00 daily. Medical Branch pantoprazol Yes [id number] 40mg Take 1 Univers e 40 mg EC 1-11 tablet by ity of tablet 00:00: mouth [place] 00 daily. Medical Branch pantoprazol Yes [id number] 40mg Take 1 Univers e 40 mg EC 1-11 tablet by ity of tablet 00:00: mouth [place] 00 daily. Medical Branch pantoprazol Yes [id number] 40mg Take 1 Univers e 40 mg EC 1-11 tablet by ity of tablet 00:00: mouth [place] 00 daily. Medical Branch pantoprazol Yes [id number] 40mg Take 1 Univers e 40 mg EC 1-11 tablet by ity of tablet 00:00: mouth [place] 00 daily. Medical Branch pantoprazol Yes [id number] 40mg Take 1 Univers e 40 mg EC 1-11 tablet by ity of tablet 00:00: mouth [place] 00 daily. Medical Branch pantoprazol Yes [id number] 40mg Take 1 Univers e 40 mg [...] as 00 :00 involving bedtime. Medica l [place] [facility] coronary artery of [place] heart without angina pectoris atorvastati 2020- No Coronary 80mg Take 1 Univers n 80 mg 3-20 05-06 artery tablet by ity of tablet 00:00: 00:00 disease mouth at [place] 00 :00 involving bedtime. Medica l [place] [facility] coronary artery of [place] heart without angina pectoris nitroglycer 2018-05 Yes [id number] 1 tab SL Univers in 0.4 mg 0-29 q5min up ity of sublingual 00:00: to 3 doses [place] tablet 00 PRN chest Medical pain, then Branch activate 911. nitroglycer 2018-05 Yes [id number] 1 tab SL Univers in 0.4 mg 0-29 q5min up ity of sublingual 00:00: to 3 doses [place] tablet 00 PRN chest Medical pain, then Branch activate 911. nitroglycer 2018-05 Yes [id number] 1 tab SL Univers in 0.4 mg 0-29 q5min up ity of sublingual 00:00: to 3 doses [place] tablet 00 PRN chest Medical pain, then Branch activate 911. nitroglycer 2018-05 Yes [id number] 1 tab SL Univers in 0.4 mg 0-29 q5min up ity of sublingual 00:00: to 3 doses [place] tablet 00 PRN chest Medical pain, then Branch activate 911. nitroglycer 2018-05 Yes [id number] 1 tab SL Univers in 0.4 mg 0-29 q5min up ity of sublingual 00:00: to 3 doses [place] tablet 00 PRN chest Medical pain, then Branch activate 911. nitroglycer 2018-05 Yes [id number] 1 tab SL Univers in 0.4 mg 0-29 q5min up ity of sublingual 00:00: to 3 doses [place] tablet 00 PRN chest Medical pain, then Branch activate 911. nitroglycer 2018-05 Yes [id number] 1 tab SL Univers in 0.4 mg 0-29 q5min up ity of sublingual 00:00: to 3 doses [place] tablet 00 PRN chest Medical pain, then Branch activate 911. nitroglycer 2018-05 Yes [id number] 1 tab SL Univers in 0.4 mg 0-29 q5min up ity of sublingual 00:00: to 3 doses [place] tablet 00 PRN chest Medical pain, then Branch activate 911. nitroglycer 2018-05 Yes [id number] 1 tab SL Univers in 0.4 mg 0-29 q5min up ity of sublingual 00:00: to 3 doses [place] tablet 00 PRN chest Medical pain, then Branch activate 911. nitroglycer 2018-05 Yes [id number] 1 tab SL Univers in 0.4 mg 0-29 q5min up ity of sublingual 00:00: to 3 doses [place] tablet 00 PRN chest Medical pain, then Branch activate 911. nitroglycer 2018-05 Yes [id number] 1 tab SL Univers in 0.4 mg 0-29 q5min up ity of sublingual 00:00: to 3 doses [place] tablet 00 PRN chest Medical pain, then Branch activate 911. nitroglycer 2018-05 Yes [id number] 1 tab SL Univers in 0.4 mg 0-29 q5min up ity of sublingual 00:00: to 3 doses [place] tablet 00 PRN chest Medical pain, then Branch activate 911. nitroglycer 2018-05 Yes [id number] 1 tab SL Univers in 0.4 mg 0-29 q5min up ity of sublingual 00:00: to 3 doses [place] tablet 00 PRN chest Medical pain, then Branch activate 911. nitroglycer 2018-05 Yes [id number] 1 tab SL Univers in 0.4 mg 0-29 q5min up ity of sublingual 00:00: to 3 doses [place] tablet 00 PRN chest Medical pain, then Branch activate 911. nitroglycer 2018-05 Yes [id number] 1 tab SL Univers in 0.4 mg 0-29 q5min up ity of sublingual 00:00: to 3 doses [place] tablet 00 PRN chest Medical pain, then Branch activate 911. nitroglycer 2018-05 Yes [id number] 1 tab SL Univers in 0.4 mg [...] n Calcium n Calcium Horan Spir it [facility] Lexapro Lexapro Yes Dada 1 tablet Com mon Horan [facility] Metoprolol Metoprolol Yes Dada 1 tablet Common Tartrate Tartrate Horan with food S pirit [facility] Ranexa Ranexa Yes Dada 1 tablet Commo n Horan [facility] Insulin Insulin Yes Dada 60 units Com mon Aspart Prot Aspart Prot Horan BID Spirit & Aspart & Aspart [facility] Aspirin Aspirin Yes Dada 1 tablet Com mon Horan [facility] Gabapentin Gabapentin Yes Dada 1 tablet Common [facility] Furosemide Furosemide Yes Dada 1 tablet Common Horan [facility] Duloxetine Duloxetine Yes Dada 1 capsule Common HCl HCl Horan [facility] Xanax Xanax Yes Dada 1 tablet Common Horan [facility] Clopidogrel Clopidogrel Yes Dada 1 tablet Common Bisulfate Bisulfate Horan [facility] Metformin Metformin Yes Dada 1 tablet Common HCl HCl Horan with meals [facility] Pantoprazol Pantoprazol Yes Dada 1 tablet Common e Sodium e Sodium Horan [facility] Klor-Con Klor-Con Yes Dada 1 tablet C ommon M10 M10 Horan with food [facility] Duloxetine Duloxetine Yes Dada 1 capsule Common HCl HCl [facility] Levetiracet Levetiracet Yes Dada 1 tablet Common [facility] [place] [facility] Dada 1 tablet Common Horan as needed [facility] Lexapro Lexapro Yes Dada 1 tablet Com mon Horan [facility] Atorvastati Atorvastati Yes Dada 1 tablet Common n Calcium n Calcium Horan Spir [facility] Clopidogrel Clopidogrel Yes Dada 1 tablet Common Bisulfate Bisulfate Horan Spir [facility] Furosemide Furosemide Yes Dada 1 tablet Common Horan [facility] Immunizations Ordered Filled Immunization Date Status Comments Sour e Immunization Name Name SARS-COV-2 COVID-19 2021-01-17 Completed Unive rsity of PFIZER VACCINE 00:00:00 [facility] SARS-COV-2 COVID-19 2021-01-17 Completed Unive rsity of PFIZER VACCINE 00:00:00 [facility] SARS-COV-2 COVID-19 2021-01-17 Completed Unive rsity of PFIZER VACCINE 00:00:00 [facility] SARS-COV-2 COVID-19 2021-01-17 Completed Unive rsity of PFIZER VACCINE 00:00:00 [facility] SARS-COV-2 COVID-19 2021-01-17 Completed Unive rsity of PFIZER VACCINE 00:00:00 [facility] SARS-COV-2 COVID-19 2021-01-17 Completed Unive rsity of PFIZER VACCINE 00:00:00 [facility] Branch SARS-COV-2 COVID-19 2021-01-17 Completed Unive rsity of PFIZER VACCINE 00:00:00 [facility] SARS-COV-2 COVID-19 2021-01-17 Completed Unive rsity of PFIZER VACCINE 00:00:00 [facility] SARS-COV-2 COVID-19 2021-01-17 Completed Unive rsity of PFIZER VACCINE 00:00:00 [facility] SARS-COV-2 COVID-19 2021-01-17 Completed Unive rsity of PFIZER VACCINE 00:00:00 [facility] SARS-COV-2 COVID-19 2021-01-17 Completed Unive rsity of PFIZER VACCINE 00:00:00 [facility] SARS-COV-2 COVID-19 2021-01-17 Completed Unive rsity of PFIZER VACCINE 00:00:00 [facility] SARS-COV-2 COVID-19 2021-01-17 Completed Unive rsity of PFIZER VACCINE 00:00:00 [facility] SARS-COV-2 COVID-19 2021-01-17 Completed Unive rsity of PFIZER VACCINE 00:00:00 [facility] SARS-COV-2 COVID-19 2021-01-17 Completed Unive rsity of PFIZER VACCINE 00:00:00 [facility] SARS-COV-2 COVID-19 2021-01-17 Completed Unive rsity of PFIZER VACCINE 00:00:00 [facility] Vital Signs Vital Name Observation Time Observation Value Comments Source Systolic blood 2022-04-14 17:05:00 95 mm[Hg] Univer sity of pressure [facility] Diastolic blood 2022-04-14 17:05:00 65 mm[Hg] Unive rsity of pressure [facility] Heart rate 2022-04-14 17:05:00 101 /min [facility] [place] [facility] Body temperature 2022-04-14 17:05:00 36.17 [place] [facility] [place] [facility] Body height 2022-04-14 17:05:00 162.6 cm [facility] [place] [facility] Body weight 2022-04-14 17:05:00 53.524 kg [facility] [place] [facility] BMI 2022-04-14 17:05:00 20.25 kg/m2 [facility] [place] [facility] Systolic blood 2022-04-05 14:11:00 137 mm[Hg] Univer sity of pressure [place] [facility] Diastolic blood 2022-04-05 14:11:00 81 mm[Hg] Unive rsity of pressure [place] [facility] Heart rate 2022-04-05 14:11:00 110 /min [facility] [place] [facility] Body temperature 2022-04-05 14:11:00 36.78 [place] [facility] [place] [facility] Respiratory rate 2022-04-05 14:11:00 21 /min [facility] [place] [facility] Oxygen saturation in 2022-04-05 14:11:00 98 /min University of Arterial blood by [employer] Pulse oximetry Branch Body height 2022-03-22 21:40:00 162.6 cm [facility] [place] [facility] Body weight 2022-03-22 21:40:00 53.524 kg [facility] [place] [facility] BMI 2022-03-22 21:40:00 20.25 kg/m2 [facility] [place] [facility] Systolic blood 2022-03-29 12:39:00 127 mm[Hg] Univer sity of pressure [place] [facility] Diastolic blood 2022-03-29 12:39:00 72 mm[Hg] Unive rsity of pressure [place] [facility] Heart rate 2022-03-29 12:39:00 84 /min [facility] [place] [facility] Body temperature 2022-03-29 12:39:00 36.28 [facility] [facility] [place] [facility] Respiratory rate 2022-03-29 12:39:00 15 /min Univ [facility] [place] [facility] Oxygen saturation in 2022-03-29 12:39:00 94 /min University of Arterial blood by [employer] blanquita Pulse oximetry Branch Body height 2022-03-22 21:40:00 162.6 cm [facility] [place] [facility] Body weight 2022-03-22 21:40:00 53.524 kg [facility] [place] [facility] BMI 2022-03-22 21:40:00 20.25 kg/m2 [facility] [place] [facility] Systolic blood 2022-03-28 12:50:00 130 mm[Hg] Univer sity of pressure [place] [facility] Diastolic blood 2022-03-28 12:50:00 66 mm[Hg] Unive rsity of pressure [place] [facility] Heart rate 2022-03-28 12:50:00 96 /min [facility] [place] [facility] Body temperature 2022-03-28 12:50:00 36.83 [place] [facility] [place] [facility] Respiratory rate 2022-03-28 12:50:00 16 /min Univ [facility] [place] [facility] Oxygen saturation in 2022-03-28 12:50:00 94 /min University of Arterial blood by [place] [facility]i bl[facility] Pulse oximetry Branch Body height 2022-03-22 21:40:00 162.6 cm [facility] [place] [facility] Body weight 2022-03-22 21:40:00 53.524 kg [facility] [place] [facility] BMI 2022-03-22 21:40:00 20.25 kg/m2 [facility] [place] [facility] Systolic blood 2022-03-25 16:00:00 100 mm[Hg] Univer sity of pressure [place] [facility] Diastolic blood 2022-03-25 16:00:00 62 mm[Hg] Unive rsity of pressure [place] [facility] Respiratory rate 2022-03-25 16:00:00 15 /min Univ [facility] [place] [facility] Oxygen saturation in 2022-03-25 16:00:00 92 /min University of Arterial blood by [place] Medi blanquita Pulse oximetry Branch Heart rate 2022-03-25 14:19:00 80 /min [facility] [place] [facility] Body temperature 2022-03-25 14:19:00 36.28 [place] [facility] [place] [facility] Body height 2022-03-22 21:40:00 162.6 cm [facility] [place] [facility] Body weight 2022-03-22 21:40:00 53.524 kg [facility] [place] [facility] BMI 2022-03-22 21:40:00 20.25 kg/m2 [facility] [place] [facility] Systolic blood 2022-01-12 21:04:00 138 mm[Hg] Univer sity of pressure [place] [facility] Diastolic blood 2022-01-12 21:04:00 86 mm[Hg] Unive rsity of pressure [place] [facility] Heart rate 2022-01-12 21:04:00 90 /min [facility] [place] [facility] Body weight 2022-01-12 21:04:00 55.702 kg [facility] [place] [facility] BMI 2022-01-12 21:04:00 21.08 kg/m2 Universi ty of [facility] Branch Oxygen saturation in 2022-01-12 21:04:00 98 /min University of Arterial blood by [facility] Pulse oximetry Branch Heart rate 2020-10-01 20:20:00 60 /min [facility] [place] [facility] Systolic blood 2020-10-01 20:20:00 120 mm[Hg] Univer sity of pressure [place] [facility] Diastolic blood 2020-10-01 20:20:00 80 mm[Hg] Unive rsity of pressure [place] [facility] Heart rate 2020-10-01 20:20:00 60 /min [facility] [place] [facility] Systolic blood 2020-10-01 20:20:00 120 mm[Hg] Univer sity of pressure [place] [facility] Diastolic blood 2020-10-01 20:20:00 80 mm[Hg] Unive rsity of pressure [place] [facility] Heart rate 2020-10-01 20:20:00 60 /min [facility] [place] [facility] Systolic blood 2020-10-01 20:20:00 120 mm[Hg] Univer sity of pressure [place] [facility] Diastolic blood 2020-10-01 20:20:00 80 mm[Hg] Unive rsity of pressure [place] [facility] Systolic blood 2022-03-28 12:50:00 130 mm[Hg] Univer sity of pressure [place] [facility] Diastolic blood 2022-03-28 12:50:00 66 mm[Hg] Unive rsity of pressure [place] [facility] Heart rate 2022-03-28 12:50:00 96 /min [facility] [place] [facility] Body temperature 2022-03-28 12:50:00 36.83 [facility] [facility] [place] [facility] Respiratory rate 2022-03-28 12:50:00 16 /min [facility] Oxygen saturation in 2022-03-28 12:50:00 94 /min [facility] Arterial blood by [facility] Pulse oximetry [place] Body height 2022-03-22 21:40:00 162.6 cm [facility] Body weight 2022-03-22 21:40:00 53.524 kg [facility] BMI 2022-03-22 21:40:00 20.25 kg/m2 [facility] Procedures Procedure Date / Time Performing Clinician Source Performed POCT GLUCOSE (AUTOMATED) 2022-04-05 14:09:00 Rachelle Guthrie [facility] POCT GLUCOSE (AUTOMATED) 2022-04-05 10:41:00 Rachelle Guthrie [facility] POCT GLUCOSE (AUTOMATED) 2022-04-05 06:16:00 Rachelle Guthrie [facility] POCT GLUCOSE (AUTOMATED) 2022-04-05 03:21:00 Rachelle Guthrie [facility] COVID-19 (ID NOW RAPID 2022-04-04 23:01:00 Tridell [facility] TESTING) Medical [place] LAB ONLY COVID 2022-04-04 23:01:00 [facility] POCT GLUCOSE (AUTOMATED) 2022-04-04 22:22:00 Rachelle Guthrie [facility] POCT GLUCOSE (AUTOMATED) 2022-04-04 18:09:00 Rachelle Guthrie [facility] POCT GLUCOSE (AUTOMATED) 2022-04-04 14:11:00 Rachelle Guthrie [facility] PHOSPHORUS 2022-04-04 11:54:00 [facility] MAGNESIUM 2022-04-04 11:54:00 [facility] BASIC METABOLIC PANEL (NA, 2022-04-04 11:54:00 Nara Manrique [facility] K, CL, CO2, GLUCOSE, BUN, Medica l Branch CREATININE, CA) CBC WITH DIFF 2022-04-04 11:54:00 Burton [facility] o f [place] [facility] POCT GLUCOSE (AUTOMATED) 2022-04-04 10:17:00 Sweet, Rachelle [facility] [place] [facility] POCT GLUCOSE (AUTOMATED) 2022-04-04 05:23:00 Sweet, Rachelle [facility] [place] [facility] POCT GLUCOSE (AUTOMATED) 2022-04-04 01:57:00 Sweet, Rachelle [facility] [place] [facility] POCT GLUCOSE (AUTOMATED) 2022-04-03 22:36:00 Sweet, Rachelle [facility] [place] [facility] POCT GLUCOSE (AUTOMATED) 2022-04-03 17:59:00 Sweet, Rachelle [facility] [place] [facility] POCT GLUCOSE (AUTOMATED) 2022-04-03 13:58:00 Sweet, Rachelle [facility] [place] [facility] POCT GLUCOSE (AUTOMATED) 2022-04-03 10:29:00 Sweet, Rachelle [facility] [place] [facility] POCT GLUCOSE (AUTOMATED) 2022-04-03 05:30:00 Sweet, Rachelle [facility] [place] [facility] POCT GLUCOSE (AUTOMATED) 2022-04-03 00:43:00 Sweet, Rachelle [facility] [place] [facility] POCT GLUCOSE (AUTOMATED) 2022-04-02 20:49:00 Sweet, Rachelle [facility] [place] [facility] POCT GLUCOSE (AUTOMATED) 2022-04-02 16:46:00 Sweet, Rachelle [facility] [place] [facility] POCT GLUCOSE (AUTOMATED) 2022-04-02 12:40:00 Sweet, Rachelle [facility] [place] [facility] POCT GLUCOSE (AUTOMATED) 2022-04-02 08:19:00 Sweet, Rachelle [facility] [place] [facility] POCT GLUCOSE (AUTOMATED) 2022-04-02 04:53:00 Sweet, Rachelle [facility] [place] [facility] POCT GLUCOSE (AUTOMATED) 2022-04-02 00:18:00 Sweet, Rachelle [facility] [place] [facility] POCT GLUCOSE (AUTOMATED) 2022-04-01 21:17:00 Sweet, Rachelle [facility] [place] [facility] POCT GLUCOSE (AUTOMATED) 2022-04-01 17:06:00 Sweet, Rachelle [facility] [place] [facility] BASIC METABOLIC PANEL (NA, 2022-04-01 16:56:00 Nara Manrique [facility] K, CL, CO2, GLUCOSE, BUN, Medica l Branch CREATININE, CA) POCT GLUCOSE (AUTOMATED) 2022-04-01 14:54:00 Rachelle Guthrie [facility] HB ECG ROUTINE & RHYTHM 2022-04-01 13:47:15 Priscilla Manriquessbennie Rodas [facility] POCT GLUCOSE (AUTOMATED) 2022-04-01 12:23:00 Rachelle Guthrie [facility] MAGNESIUM 2022-04-01 11:09[facility] (NA, 2022-04-01 11:09:00 Nara Manrique [facility] K, CL, CO2, GLUCOSE, BUN, Medica l Branch CREATININE, CA) CBC WITH DIFF 2022-04-01 11:08:00 Burton [facility] POCT GLUCOSE (AUTOMATED) 2022-04-01 09:03:[facility] 2022-04-01 03:43:00 [facility] POCT GLUCOSE (AUTOMATED) 2022-04-01 01:19:00 [facility] POCT GLUCOSE (AUTOMATED) 2022-04-01 00:55:00 Rachelle Guthrie versity of [facility] POCT GLUCOSE (AUTOMATED) 2022-03-31 20:58:00 Rachelle Guthrie versity of [facility] POCT GLUCOSE (AUTOMATED) 2022-03-31 16:59:00 Rachelle Guthrie of [facility] PHOSPHORUS 2022-03-31 16:00:00 [facility] 2022-03-31 16:00:00 [facility] BASIC METABOLIC PANEL (NA, 2022-03-31 16:00:00 Nara Manrique [facility] K, CL, CO2, GLUCOSE, BUN, Medica l Branch CREATININE, CA) POCT GLUCOSE (AUTOMATED) 2022-03-31 12:43:00 Rachelle Guthrie [facility] CBC WITH DIFF 2022-03-31 11:06:00 Burton [facility] POCT GLUCOSE (AUTOMATED) 2022-03-31 08:59:00 Sweet, Rachelle Uni versity of [facility] POCT GLUCOSE (AUTOMATED) 2022-03-31 05:59:00 Sweet, Rachelle Uni versity of [facility] POCT GLUCOSE (AUTOMATED) 2022-03-31 05:29:00 Sweet, Rachelle Uni versity of [facility] POCT GLUCOSE (AUTOMATED) 2022-03-31 04:56:00 Sweet, Rachelle Uni versity of [facility] POCT GLUCOSE (AUTOMATED) 2022-03-31 00:58:00 Sweet, Rachelle Uni versity of [facility] POCT GLUCOSE (AUTOMATED) 2022-03-30 21:15:00 Sweet, Rachelle Uni versity of [facility] POCT GLUCOSE (AUTOMATED) 2022-03-30 21:15:00 Sweet, Rachelle Uni versity of [facility] POCT GLUCOSE (AUTOMATED) 2022-03-30 16:28:00 Sweet, Rachelle Uni versity of [facility] POCT GLUCOSE (AUTOMATED) 2022-03-30 16:28:00 Sweet, Rachelle Uni versity of [facility] POCT GLUCOSE (AUTOMATED) 2022-03-30 12:51:00 Sweet, Rachelle Uni versity of [facility] POCT GLUCOSE (AUTOMATED) 2022-03-30 12:51:00 Sweet, Rachelle Uni versity of [facility] CBC WITH DIFF 2022-03-30 10:49:00 Burton [facility] CBC WITH DIFF 2022-03-30 10:49:00 Burton [facility] MAGNESIUM 2022-03-30 09:28:00 Burton [facility] BASIC METABOLIC PANEL (NA, 2022-03-30 09:28[facility], BUN, Medica l Branch CREATININE, CA) MAGNESIUM 2022-03-30 09:28:00 Burton [facility] BASIC METABOLIC PANEL (NA, 2022-03-30 09:28:00 Nara Manrique [facility] K, CL, CO2, GLUCOSE, BUN, Medica l Branch CREATININE, CA) POCT GLUCOSE (AUTOMATED) 2022-03-30 08:56:00 [facility]) 2022-03-30 08:56:00 Rachelle [facility]rie [facility]SE (AUTOMATED) 2022-03-30 04:45:00 Jerri, [facility]SE (AUTOMATED) 2022-03-30 04:45:00 Jerri, [facility]SE (AUTOMATED) 2022-03-30 00:58:00 Jerri, Rachelle [facility]UCOSE (AUTOMATED) 2022-03-30 00:58:00 Jerri, [facility]le [facility]SE (AUTOMATED) 2022-03-29 21:49:00 Jerri Rachelle Philip [facility] POCT GLUCOSE (AUTOMATED) 2022-03-29 21:49:00 Rachelle Guthrie Tamera [facility] CBC WITH DIFF 2022-03-29 17:51:00 Gonzalez [facility] CBC WITH DIFF 2022-03-29 17:51:00 Gonzalez [facility] CBC WITH DIFF 2022-03-29 17:51:00 Gonzalez [facility] TYPE AND SCREEN 2022-03-29 15:55:00 [facility] TYPE AND SCREEN 2022-03-29 15:55[facility] 2022-03-29 15:55:00 [facility] ABG+COOX+NA+K+GLU+CA2+ 2022-03-29 15:54:00 Rachelle Guthrie [facility] ABG+COOX+NA+K+GLU+CA2+ 2022-03-29 15:54:00 Rachelle Guthrie [facility] ABOVE THE KNEE AMPUTATION 2022-03-29 14:17:00 Anuj Scott iversity [facility] ABOVE THE KNEE AMPUTATION 2022-03-29 14:17:00 [facility] RHYTHM 2022-03-29 13:11:51 [facility] (AUTOMATED) 2022-03-29 13:07:00 Jerri, Rachelle [facility] [place] [facility] POCT GLUCOSE (AUTOMATED) 2022-03-29 13:07:00 Sweet, Rachelle [facility] [place] [facility] POCT GLUCOSE (AUTOMATED) 2022-03-29 13:07:00 Sweet, Rachelle [facility] [place] [facility] POCT GLUCOSE (AUTOMATED) 2022-03-29 09:19:00 Sweet, Rachelle [facility] [place] [facility] POCT GLUCOSE (AUTOMATED) 2022-03-29 09:19:00 Sweet, Rachelle [facility] [place] [facility] POCT GLUCOSE (AUTOMATED) 2022-03-29 09:19:00 Sweet, Rachelle [facility] [place] [facility] POCT GLUCOSE (AUTOMATED) 2022-03-29 05:01:00 Sweet, Rachelle [facility] [place] [facility] POCT GLUCOSE (AUTOMATED) 2022-03-29 05:01:00 Sweet, Rachelle [facility] [place] [facility] POCT GLUCOSE (AUTOMATED) 2022-03-29 05:01:00 Sweet, Rachelle [facility] [place] [facility] POCT GLUCOSE (AUTOMATED) 2022-03-29 01:18:00 Sweet, Rachelle [facility] [place] [facility] POCT GLUCOSE (AUTOMATED) 2022-03-29 01:18:00 Sweet, Rcahelle [facility] [place] [facility] POCT GLUCOSE (AUTOMATED) 2022-03-29 01:18:00 Sweet, Rachelle [facility] [place] [facility] POCT GLUCOSE (AUTOMATED) 2022-03-28 21:45:00 Sweet, Rachelle [facility] [place] [facility] POCT GLUCOSE (AUTOMATED) 2022-03-28 21:45:00 Sweet, Rachelle [facility] [place] [facility] POCT GLUCOSE (AUTOMATED) 2022-03-28 21:45:00 Sweet, Rachelle [facility] [place] [facility] POCT GLUCOSE (AUTOMATED) 2022-03-28 21:45:00 Rachelle Guthrie Uni versity of [facility] CARDIAC CATHETERIZATION 2022-03-28 20:01:49 Zach, Mostafa [facility] [place] [facility] CARDIAC CATHETERIZATION 2022-03-28 20:01:49 Zach, Mostafa [facility] [place] [facility] CARDIAC CATHETERIZATION 2022-03-28 20:01:49 Zach, Mostafa [facility] [place] [facility] CARDIAC CATHETERIZATION 2022-03-28 20:01:49 Zach, Mostafa [facility] [place] [facility] CARDIAC CATHETERIZATION 2022-03-28 20:01:49 Zach, Mostafa [facility] [place] [facility] CARDIAC CATHETERIZATION 2022-03-28 20:01:49 Zach, Mostafa Uni versity of [facility] Medical [facility] POCT GLUCOSE (AUTOMATED) 2022-03-28 12:52:00 George Barrett [facility] POCT GLUCOSE (AUTOMATED) 2022-03-28 12:52:00 George Barrett [facility] POCT GLUCOSE (AUTOMATED) 2022-03-28 12:52:00 George Barrett [facility] POCT GLUCOSE (AUTOMATED) 2022-03-28 12:52:00 George Barrett [facility] POCT GLUCOSE (AUTOMATED) 2022-03-28 12:52:00 George Barrett [facility] CBC WITH DIFF 2022-03-28 10:17:[address] [facility] COMP. METABOLIC PANEL 2022-03-28 10:17:00 [facility] ([id number]) [facility] Branch MAGNESIUM 2022-03-28 10:17:[address] [facility] MAGNESIUM 2022-03-28 10:17:[address] [facility] COMP. METABOLIC PANEL 2022-03-28 10:17:00 [facility] ([id number]) Medical Branch CBC WITH DIFF 2022-03-28 10:17:00 [facility] MAGNESIUM 2022-03-28 10:17:[address] [facility] COMP. METABOLIC PANEL 2022-03-28 10:17:00 [facility] ([id number]) Medical Branch CBC WITH DIFF 2022-03-28 10:17:[address] [facility] MAGNESIUM 2022-03-28 10:17:[address] [facility] COMP. METABOLIC PANEL 2022-03-28 10:17:00 [facility] ([id number]) Medical Branch CBC WITH DIFF 2022-03-28 10:17:[address] [facility] MAGNESIUM 2022-03-28 10:17:[address] [facility] COMP. METABOLIC PANEL 2022-03-28 10:17:00 [facility] ([id number]) Medical Branch CBC WITH DIFF 2022-03-28 10:17:[address] [facility] POCT GLUCOSE (AUTOMATED) 2022-03-28 09:22:00 George Barrett [facility] POCT GLUCOSE (AUTOMATED) 2022-03-28 09:22:00 George Barrett [facility] POCT GLUCOSE (AUTOMATED) 2022-03-28 09:22:00 George Barrett [facility] POCT GLUCOSE (AUTOMATED) 2022-03-28 09:22:00 George Barrett [facility] POCT GLUCOSE (AUTOMATED) 2022-03-28 09:22:00 George Barrett [facility] POCT GLUCOSE (AUTOMATED) 2022-03-28 05:21:00 George Barrett [facility] POCT GLUCOSE (AUTOMATED) 2022-03-28 05:21:00 George Barrett [facility] POCT GLUCOSE (AUTOMATED) 2022-03-28 05:21:00 George Barrett [facility] POCT GLUCOSE (AUTOMATED) 2022-03-28 05:21:00 George Barrett [facility] POCT GLUCOSE (AUTOMATED) 2022-03-28 05:21:00 George Barrett [facility] POCT GLUCOSE (AUTOMATED) 2022-03-28 04:45:00 George Barrett [facility] POCT GLUCOSE (AUTOMATED) 2022-03-28 04:45:00 George Barrett [facility] POCT GLUCOSE (AUTOMATED) 2022-03-28 04:45:00 George Barrett [facility] POCT GLUCOSE (AUTOMATED) 2022-03-28 04:45:00 George Barrett [facility] POCT GLUCOSE (AUTOMATED) 2022-03-28 04:45:00 George Barrett [facility] POCT GLUCOSE (AUTOMATED) 2022-03-28 01:29:00 George Barrett [facility] POCT GLUCOSE (AUTOMATED) 2022-03-28 01:29:00 George Barrett [facility] POCT GLUCOSE (AUTOMATED) 2022-03-28 01:29:00 George Barrett [facility] POCT GLUCOSE (AUTOMATED) 2022-03-28 01:29:00 George Barrett [facility] POCT GLUCOSE (AUTOMATED) 2022-03-28 01:29:00 George Barrett [facility] POCT GLUCOSE (AUTOMATED) 2022-03-27 20:43:00 George Barrett [facility] POCT GLUCOSE (AUTOMATED) 2022-03-27 20:43:00 George Barrett [facility] POCT GLUCOSE (AUTOMATED) 2022-03-27 20:43:00 George Barrett [facility] POCT GLUCOSE (AUTOMATED) 2022-03-27 20:43:00 George Barrett [facility] POCT GLUCOSE (AUTOMATED) 2022-03-27 20:43:00 George Barrett [facility] POCT GLUCOSE (AUTOMATED) 2022-03-27 17:35:00 George Barrett [facility] POCT GLUCOSE (AUTOMATED) 2022-03-27 17:35:00 George Barrett [facility] POCT GLUCOSE (AUTOMATED) 2022-03-27 17:35:00 George Barrett [facility] POCT GLUCOSE (AUTOMATED) 2022-03-27 17:35:00 George Barrett [facility] POCT GLUCOSE (AUTOMATED) 2022-03-27 17:35:00 George Barrett [facility] POCT GLUCOSE (AUTOMATED) 2022-03-27 12:34:00 George Barrett [facility] POCT GLUCOSE (AUTOMATED) 2022-03-27 12:34:00 George Barrett [facility] POCT GLUCOSE (AUTOMATED) 2022-03-27 12:34:00 George Barrett [facility] POCT GLUCOSE (AUTOMATED) 2022-03-27 12:34:00 George Barrett [facility] POCT GLUCOSE (AUTOMATED) 2022-03-27 12:34:00 George Barrett [facility] POCT GLUCOSE (AUTOMATED) 2022-03-27 09:14:00 George Barrett [facility] POCT GLUCOSE (AUTOMATED) 2022-03-27 09:14:00 George Barrett [facility] POCT GLUCOSE (AUTOMATED) 2022-03-27 09:14:00 George Barrett [facility] POCT GLUCOSE (AUTOMATED) 2022-03-27 09:14:00 George Barrett [facility] POCT GLUCOSE (AUTOMATED) 2022-03-27 09:14:00 George Barrett [facility] CBC WITH DIFF 2022-03-27 08:58:00 [facility] 2022-03-27 08:58:00 Mally [facility] CBC WITH DIFF 2022-03-27 08:58:00 Mally [facility] CBC WITH DIFF 2022-03-27 08:58:00 Mally [facility] CBC WITH DIFF 2022-03-27 08:58:00 Mally [facility] POCT GLUCOSE (AUTOMATED) 2022-03-27 05:07:00 George Barrett [facility] POCT GLUCOSE (AUTOMATED) 2022-03-27 05:07:00 George Barrett [facility] POCT GLUCOSE (AUTOMATED) 2022-03-27 05:07:00 George Barrett [facility] POCT GLUCOSE (AUTOMATED) 2022-03-27 05:07:00 George Barrett [facility] POCT GLUCOSE (AUTOMATED) 2022-03-27 05:07:00 George Barrett [facility] POCT GLUCOSE (AUTOMATED) 2022-03-27 00:42:00 George Barrett [facility] POCT GLUCOSE (AUTOMATED) 2022-03-27 00:42:00 George Barrett [facility] POCT GLUCOSE (AUTOMATED) 2022-03-27 00:42:00 George Barrett [facility] POCT GLUCOSE (AUTOMATED) 2022-03-27 00:42:00 George Barrett [facility] POCT GLUCOSE (AUTOMATED) 2022-03-27 00:42:00 George Barrett [facility] PREPARE PACKED RBC 2022-03-26 23:09[facility]22-[facility]-26 [facility] 2022-03-26 22:25:00 [facility] HB ABO GROUPING 2022-03-26 22:25:00 [facility] HB ABO GROUPING 2022-03-26 22:25:00 [facility] COVID-19 (ID NOW RAPID 2022-03-26 22:24:00 Sahzada, [facility] TESTING) [facility] Medical [facility] LAB ONLY COVID 2022-03-26 22:24:00 [facility] INTERPRETATION [facility] COVID-19 (ID NOW RAPID 2022-03-26 22:24:00 [facility] LAB ONLY COVID 2022-03-26 22:24:00 [facility], [facility] INTERPRETATION [facility] COVID-19 (ID NOW RAPID 2022-03-26 22:24:00 Sahzada, [facility] TESTING) [facility] LAB ONLY COVID 2022-03-26 22:24:00 [facility], [facility] INTERPRETATION [facility] COVID-19 (ID NOW RAPID 2022-03-26 22:24:00 Sahibzada, [facility] TESTING) [facility] LAB ONLY COVID 2022-03-26 22:24:00 [facility], [facility] INTERPRETATION [facility] COVID-19 (ID NOW RAPID 2022-03-26 22:24:00 Sahzada, [facility] TESTING) [facility] LAB ONLY COVID 2022-03-26 22:24:00 [facility] INTERPRETATION [facility] POCT GLUCOSE (AUTOMATED) 2022-03-26 21:39:00 George Barrett [facility] POCT GLUCOSE (AUTOMATED) 2022-03-26 21:39:00 George Barrett [facility] POCT GLUCOSE (AUTOMATED) 2022-03-26 21:39:00 George Barrett [facility] POCT GLUCOSE (AUTOMATED) 2022-03-26 21:39:00 George Barrett [facility] POCT GLUCOSE (AUTOMATED) 2022-03-26 21:39:00 George Barrett [facility] POCT GLUCOSE (AUTOMATED) 2022-03-26 17:34:00 George Barrett [facility] POCT GLUCOSE (AUTOMATED) 2022-03-26 17:34:00 George Barrett [facility] POCT GLUCOSE (AUTOMATED) 2022-03-26 17:34:00 George Barrett [facility] POCT GLUCOSE (AUTOMATED) 2022-03-26 17:34:00 George Barrett [facility] POCT GLUCOSE (AUTOMATED) 2022-03-26 17:34:00 George Barrett [facility] POCT GLUCOSE (AUTOMATED) 2022-03-26 12:27:00 George Barrett [facility] POCT GLUCOSE (AUTOMATED) 2022-03-26 12:27:00 George Barrett [facility] POCT GLUCOSE (AUTOMATED) 2022-03-26 12:27:00 George Barrett [facility] POCT GLUCOSE (AUTOMATED) 2022-03-26 12:27:00 George Barrett [facility] POCT GLUCOSE (AUTOMATED) 2022-03-26 12:27:00 George Barrett [facility] COMP. METABOLIC PANEL 2022-03-26 09:29:00 [facility] ([id number]) [facility] CBC WITH DIFF 2022-03-26 09:29:[address] [facility] MAGNESIUM 2022-03-26 09:29:[address] [facility] MAGNESIUM 2022-03-26 09:29:[address] [facility] COMP. METABOLIC PANEL 2022-03-26 09:29:00 [facility] ([id number]) Medical Branch CBC WITH DIFF 2022-03-26 09:29:00 [facility] MAGNESIUM 2022-03-26 09:29[facility]00 [facility] METABOLIC PANEL 2022-03-26 09:29:00 [facility] ([id number][facility] Medical Branch CBC WITH DIFF 2022-03-26 09:29:00 [facility] MAGNESIUM 2022-03-26 09:29:00 [facility] COMP. METABOLIC PANEL 2022-03-26 09:29:00 [facility] ([id number]) [facility] Branch CBC WITH DIFF 2022-03-26 09:29:00 [facility] MAGNESIUM 2022-03-26 09:29:00 [facility] COMP. METABOLIC PANEL 2022-03-26 09:29:00 [facility] ([id number]) [facility] CBC WITH DIFF 2022-03-26 09:29:00 [facility] POCT GLUCOSE (AUTOMATED) 2022-03-26 09:21:00 George Barrett [facility] POCT GLUCOSE (AUTOMATED) 2022-03-26 09:21:00 George Barrett [facility] POCT GLUCOSE (AUTOMATED) 2022-03-26 09:21:00 George Barrett [facility] POCT GLUCOSE (AUTOMATED) 2022-03-26 09:21:00 George Barrett [facility] POCT GLUCOSE (AUTOMATED) 2022-03-26 09:21:00 George Barrett [facility] POCT GLUCOSE (AUTOMATED) 2022-03-26 04:57:00 George Barrett [facility] POCT GLUCOSE (AUTOMATED) 2022-03-26 04:57:00 George Barrett [facility] POCT GLUCOSE (AUTOMATED) 2022-03-26 04:57:00 George Barrett [facility] POCT GLUCOSE (AUTOMATED) 2022-03-26 04:57:00 George Barrett [facility] POCT GLUCOSE (AUTOMATED) 2022-03-26 04:57:00 George Barrett [facility] POCT GLUCOSE (AUTOMATED) 2022-03-26 01:14:00 George Barrett [facility] POCT GLUCOSE (AUTOMATED) 2022-03-26 01:14:00 George Barrett [facility] POCT GLUCOSE (AUTOMATED) 2022-03-26 01:14:00 George Barrett [facility] POCT GLUCOSE (AUTOMATED) 2022-03-26 01:14:00 George Barrett [facility] POCT GLUCOSE (AUTOMATED) 2022-03-26 01:14:00 George Barrett [facility] POCT GLUCOSE (AUTOMATED) 2022-03-25 21:10:00 George Barrett [facility] POCT GLUCOSE (AUTOMATED) 2022-03-25 21:10:00 George Barrett [facility] POCT GLUCOSE (AUTOMATED) 2022-03-25 21:10:00 George Barrett [facility] POCT GLUCOSE (AUTOMATED) 2022-03-25 21:10:00 George Barrett [facility] POCT GLUCOSE (AUTOMATED) 2022-03-25 21:10:00 George Barrett [facility] POCT GLUCOSE (AUTOMATED) 2022-03-25 18:03:00 George Barrett [facility] POCT GLUCOSE (AUTOMATED) 2022-03-25 18:03:00 George Barrett [facility] POCT GLUCOSE (AUTOMATED) 2022-03-25 18:03:00 George Barrett [facility] POCT GLUCOSE (AUTOMATED) 2022-03-25 18:03:00 George Barrett [facility] POCT GLUCOSE (AUTOMATED) 2022-03-25 18:03:00 George Barrett [facility] POCT GLUCOSE (AUTOMATED) 2022-03-25 14:26:00 George Barrett [facility] POCT GLUCOSE (AUTOMATED) 2022-03-25 14:26:00 George Barrett [facility] POCT GLUCOSE (AUTOMATED) 2022-03-25 14:26:00 George Barrett [facility] POCT GLUCOSE (AUTOMATED) 2022-03-25 14:26:00 George Barrett [facility] POCT GLUCOSE (AUTOMATED) 2022-03-25 14:26:00 George Barrett [facility] FL TIME OR 2022-03-25 14:15:00 [facility] (NON-REPORTABLE) [facility] FL TIME OR 2022-03-25 14:15:00 [facility] (NON-REPORTABLE) Cr Medical Branch FL TIME OR 2022-03-25 14:15:00 [facility] (NON-REPORTABLE) [facility] FL TIME OR 2022-03-25 14:15:00 [facility], [facility] (NON-REPORTABLE) [facility] Medical [facility] FL TIME OR 2022-03-25 14:15:00 [facility], [facility] (NON-REPORTABLE) [facility] ARTERIOGRAM 2022-03-25 12:30:00 [facility] ARTERIOGRAM 2022-03-25 12:30:00 [facility] ARTERIOGRAM 2022-03-25 12:30:00 [facility] CBC WITH DIFF 2022-03-25 09:24:00 Nara Manrique [facility] BASIC METABOLIC PANEL (NA, 2022-03-25 09:24:00 Nara Manrique [facility] K, CL, CO2, GLUCOSE, BUN, Medica l Branch CREATININE, CA) MAGNESIUM 2022-03-25 09:24:[address] [facility] [place] Branch PHOSPHORUS 2022-03-25 09:24:00 Burton, [facility] PROTHROMBIN TIME / INR 2022-03-25 09:24:00 Nara Manrique [facility] PHOSPHORUS 2022-03-25 09:24:00 Burton [facility] MAGNESIUM 2022-03-25 09:24:00 Burton [facility] BASIC METABOLIC PANEL (NA, 2022-03-25 09:24:00 [facility] Man[facility] [place] [facility], CL, CO2, GLUCOSE, BUN, Medica l Branch CREATININE, CA) CBC WITH DIFF 2022-03-25 09:24:00 Burton [facility] PROTHROMBIN TIME / INR 2022-03-25 09:24:00 [facility] PHOSPHORUS 2022-03-25 09:24:00 Burton [facility] MAGNESIUM 2022-03-25 09:24:00 Burton [facility] BASIC METABOLIC PANEL (NA, 2022-03-25 09:24:00 Nara Manrique [facility] [place] K, CL, CO2, GLUCOSE, BUN, Medica l Branch CREATININE, CA) CBC WITH DIFF 2022-03-25 09:24:00 Burton [facility] PROTHROMBIN TIME / INR 2022-03-25 09:24:00 Nara Manrique [facility] PHOSPHORUS 2022-03-25 09:24:00 Burton [facility] MAGNESIUM 2022-03-25 09:24:00 Burton [facility] BASIC METABOLIC PANEL (NA, 2022-03-25 09:24:00 Nara Manrique [employer] [place] K, CL, CO2, GLUCOSE, BUN, Medica l Branch CREATININE, CA) CBC WITH DIFF 2022-03-25 09:24:00 Burton [facility] PROTHROMBIN TIME / INR 2022-03-25 09:24:00 Nara Manrique [facility] PHOSPHORUS 2022-03-25 09:24:00 Burton [facility] MAGNESIUM 2022-03-25 09:24:00 Priscilla Manriquessa [place] [facility] BASIC METABOLIC PANEL (NA, 2022-03-25 09:24:00 Nara Manrique [facility] K, CL, CO2, GLUCOSE, BUN, Medica l Branch CREATININE, CA) CBC WITH DIFF 2022-03-25 09:24:00 Burton [facility] PROTHROMBIN TIME / INR 2022-03-25 09:24:00 Nara Manrique [facility] POCT GLUCOSE (AUTOMATED) 2022-03-25 09:01:00 George Barrett [facility] POCT GLUCOSE (AUTOMATED) 2022-03-25 09:01:00 George Barrett [facility] POCT GLUCOSE (AUTOMATED) 2022-03-25 09:01:00 George Barrett [facility] POCT GLUCOSE (AUTOMATED) 2022-03-25 09:01:00 George Barrett [facility] POCT GLUCOSE (AUTOMATED) 2022-03-25 09:01:00 George Barrett [facility] POCT GLUCOSE (AUTOMATED) 2022-03-25 04:14:00 George Barrett [facility] POCT GLUCOSE (AUTOMATED) 2022-03-25 04:14:00 George Barrett [facility] POCT GLUCOSE (AUTOMATED) 2022-03-25 04:14:00 George Barrett [facility] POCT GLUCOSE (AUTOMATED) 2022-03-25 04:14:00 George Barrett [facility] POCT GLUCOSE (AUTOMATED) 2022-03-25 04:14:00 George Barrett [facility] POCT GLUCOSE (AUTOMATED) 2022-03-25 01:32:00 [facility] [facility] PO[facility] GLUCOSE (AUTOMATED) 2022-03-25 01:32:00 George Barrett [facility] POCT GLUCOSE (AUTOMATED) 2022-03-25 01:32:00 George Barrett [facility] POCT GLUCOSE (AUTOMATED) 2022-03-25 01:32:00 George Barrett [facility] POCT GLUCOSE (AUTOMATED) 2022-03-25 01:32:00 George Barrett [facility] POCT GLUCOSE (AUTOMATED) 2022-03-25 01:23:00 George Barrett [facility] POCT GLUCOSE (AUTOMATED) 2022-03-25 01:23:00 George Barrett [facility] POCT GLUCOSE (AUTOMATED) 2022-03-25 01:23:00 George Barrett [facility] POCT GLUCOSE (AUTOMATED) 2022-03-25 01:23:00 George Barrett [facility] POCT GLUCOSE (AUTOMATED) 2022-03-25 01:23:00 George Barrett [facility] POCT GLUCOSE (AUTOMATED) 2022-03-24 23:01:00 George Barrett [facility] POCT GLUCOSE (AUTOMATED) 2022-03-24 23:01:00 George Barrett [facility] POCT GLUCOSE (AUTOMATED) 2022-03-24 23:01:00 George Barrett [facility] POCT GLUCOSE (AUTOMATED) 2022-03-24 23:01:00 George Barrett [facility] POCT GLUCOSE (AUTOMATED) 2022-03-24 23:01:00 George Barrett [facility] POCT GLUCOSE (AUTOMATED) 2022-03-24 22:00:00 George Barrett [facility] POCT GLUCOSE (AUTOMATED) 2022-03-24 22:00:00 George Barrett [facility] POCT GLUCOSE (AUTOMATED) 2022-03-24 22:00:00 George Barrett [facility] POCT GLUCOSE (AUTOMATED) 2022-03-24 22:00:00 George Barrett [facility] POCT GLUCOSE (AUTOMATED) 2022-03-24 22:00:00 George Barrett [facility] POCT GLUCOSE (AUTOMATED) 2022-03-24 17:05:00 George Barrett [facility] POCT GLUCOSE (AUTOMATED) 2022-03-24 17:05:00 George Barrett [facility] POCT GLUCOSE (AUTOMATED) 2022-03-24 17:05:00 George Barrett [facility] POCT GLUCOSE (AUTOMATED) 2022-03-24 17:05:00 George Barrett [facility] POCT GLUCOSE (AUTOMATED) 2022-03-24 17:05:00 George Barrett [facility] TRANSTHORACIC ECHO (TTE) 2022-03-24 15:42:00 Ricki, [facility] [place] COMPLETE W/ CONTRAST [facility] TRANSTHORACIC ECHO (TTE) 2022-03-24 15:42:00 Ricki, [facility] [place] COMPLETE W/ CONTRAST [facility] TRANSTHORACIC ECHO (TTE) 2022-03-24 15:42:00 Ricki, [facility] [place] COMPLETE W/ CONTRAST [facility] TRANSTHORACIC ECHO (TTE) 2022-03-24 15:42:00 Ricki, [facility] [place] COMPLETE W/ CONTRAST [facility] TRANSTHORACIC ECHO (TTE) 2022-03-24 15:42:00 Ricki, [facility] [place] COMPLETE W/ CONTRAST [facility] POCT GLUCOSE (AUTOMATED) 2022-03-24 12:58:00 George Barrett [facility] POCT GLUCOSE (AUTOMATED) 2022-03-24 12:58:00 George Barrett [facility] POCT GLUCOSE (AUTOMATED) 2022-03-24 12:58:00 George Barrett [facility] POCT GLUCOSE (AUTOMATED) 2022-03-24 12:58:00 George Barrett [facility] POCT GLUCOSE (AUTOMATED) 2022-03-24 12:58:00 George Barrett [facility] BASIC METABOLIC PANEL (NA, 2022-03-24 10:58:00 Nara Manrique [facility] K, CL, CO2, GLUCOSE, BUN, Medica l Branch CREATININE, CA) MAGNESIUM 2022-03-24 10:58:00 [facility] PHOSPHORUS 2022-03-24 10:58:00 Burton [facility] PHOSPHORUS 2022-03-24 10:58:00 Burton [facility] MAGNESIUM 2022-03-24 10:58:[facility] (NA, 2022-03-24 10:58:00 Nara Manrique [facility] K, CL, CO2, GLUCOSE, BUN, Medica l Branch CREATININE, CA) PHOSPHORUS 2022-03-24 10:58:00 [facility]-03-24 10:58:00 [facility] BASIC METABOLIC PANEL (NA, 2022-03-24 10:58:00 Burton, Nara [facility] [place] K, CL, CO2, GLUCOSE, BUN, Medica l Branch CREATININE, CA) PHOSPHORUS 2022-03-24 10:58:00 [facility]-24 10:58[facility]00 [facility]IC MET[facility]OLIC PANEL (NA, 2022-03-24 10:58:00 Nara Manrique [facility] [place] K, CL, CO2, GLUCOSE, BUN, Medica l Branch CREATININE, CA) PHOSPHORUS 2022-03-24 10:58:00 [facility]22-03-24 10:58[facility]00 [facility]IC MET[facility]OLIC PANEL (NA, 2022-03-24 10:58:00 Burton Nara [facility] [place] K, CL, CO2, GLUCOSE, BUN, Medica l Branch CREATININE, CA) POCT GLUCOSE (AUTOMATED) 2022-03-24 01:07:00 George Barrett [facility] POCT GLUCOSE (AUTOMATED) 2022-03-24 01:07:00 George Barrett [facility] POCT GLUCOSE (AUTOMATED) 2022-03-24 01:07:00 George Barrett [facility] POCT GLUCOSE (AUTOMATED) 2022-03-24 01:07:00 George Barrett [facility] POCT GLUCOSE (AUTOMATED) 2022-03-24 01:07:00 George Barrett [facility] MR FOOT LEFT W WO CONTRAST 2022-03-23 23:25:47 [facility]imo [facility] MR FOOT LEFT W WO CONTRAST 2022-03-23 23:25:47 [facility]imo [facility] MR FOOT LEFT W WO CONTRAST 2022-03-23 23:25:47 TamarackMaximo [facility] MR FOOT LEFT W WO CONTRAST 2022-03-23 23:25:47 Maximo [facility] MR FOOT LEFT W WO CONTRAST 2022-03-23 23:25:47 Shayy [facility] POCT GLUCOSE (AUTOMATED) 2022-03-23 22:11:00 George Barrett [facility] POCT GLUCOSE (AUTOMATED) 2022-03-23 22:11:00 George Barrett [facility] POCT GLUCOSE (AUTOMATED) 2022-03-23 22:11:00 George Barrett [facility] POCT GLUCOSE (AUTOMATED) 2022-03-23 22:11:00 George Barrett [facility] POCT GLUCOSE (AUTOMATED) 2022-03-23 22:11:00 George Barrett [facility] HOWARD MULTI LEVEL - BY 2022-03-23 20:42:45 Jeffrey Bal [facility] VASCULAR LAB [facility] HOWARD MULTI LEVEL - BY 2022-03-23 20:42:45 Jeffrey Bal [facility] VASCULAR LAB [facility] HOWARD MULTI LEVEL - BY 2022-03-23 20:42:45 Maribell Balar [facility] VASCULAR LAB [facility] HOWARD MULTI LEVEL - BY 2022-03-23 20:42:45 Jeffrey Bal [facility] VASCULAR LAB [facility] HOWARD MULTI LEVEL - BY 2022-03-23 20:42:45 Jeffrey Bal [facility] VASCULAR LAB [facility] XR BONE SURVEY LTD 2022-03-23 18:11:00 Thierno Fatima [facility] XR BONE SURVEY LTD 2022-03-23 18:11:00 Thierno Fatima [facility] XR BONE SURVEY LTD 2022-03-23 18:11:00 Thierno Fatima [facility] XR BONE SURVEY LTD 2022-03-23 18:11:00 Thierno Fatima [facility] XR BONE SURVEY LTD 2022-03-23 18:11:00 Thierno Fatima [facility] POCT GLUCOSE (AUTOMATED) 2022-03-23 16:40:00 George Barrett [facility] POCT GLUCOSE (AUTOMATED) 2022-03-23 16:40:00 George Barrett [facility] POCT GLUCOSE (AUTOMATED) 2022-03-23 16:40:00 George Barrett [facility] POCT GLUCOSE (AUTOMATED) 2022-03-23 16:40:00 George Barrett [facility] POCT GLUCOSE (AUTOMATED) 2022-03-23 16:40:00 George Barrett [facility] POCT GLUCOSE (AUTOMATED) 2022-03-23 13:05:00 George Barrett [facility] POCT GLUCOSE (AUTOMATED) 2022-03-23 13:05:00 George Barrett [facility] POCT GLUCOSE (AUTOMATED) 2022-03-23 13:05:00 George Barrett [facility] POCT GLUCOSE (AUTOMATED) 2022-03-23 13:05:00 George Barrett [facility] POCT GLUCOSE (AUTOMATED) 2022-03-23 13:05:00 George Barrett [facility] C-REACTIVE PROTEIN 2022-03-23 05:37:00 Maximo Lucas [facility] CBC WITHOUT DIFF 2022-03-23 05:37:00 Shayy [facility] BASIC METABOLIC PANEL (NA, 2022-03-23 05:37:00 Shayy, [facility] K, CL, CO2, GLUCOSE, BUN, Medica l Branch CREATININE, CA) MAGNESIUM 2022-03-23 05:37:00 Tamarack, [facility] MAGNESIUM 2022-03-23 05:37:00 Tamarack, [facility] C-REACTIVE PROTEIN 2022-03-23 05:37:00 Shayy [facility] BASIC METABOLIC PANEL (NA, 2022-03-23 05:37:00 Tamarack, [facility] K, CL, CO2, GLUCOSE, BUN, Medica l Branch CREATININE, CA) CBC WITHOUT DIFF 2022-03-23 05:37:00 Shayy [facility] MAGNESIUM 2022-03-23 05:37:00 Shayy [facility] C-REACTIVE PROTEIN 2022-03-23 05:37:00 Shayy [facility] BASIC METABOLIC PANEL (NA, 2022-03-23 05:37[facility]00 [facility], GLUCOSE, BUN, Medica l Branch CREATININE, CA) CBC WITHOUT DIFF 2022-03-23 05:37:00 Shayy [facility] MAGNESIUM 2022-03-23 05:37:00 Shayy [facility] C-REACTIVE PROTEIN 2022-03-23 05:37:00 Shayy [facility] BASIC METABOLIC PANEL (NA, 2022-03-23 05:37:00 Shayy [facility] K, CL, CO2, GLUCOSE, BUN, Medica l Branch CREATININE, CA) CBC WITHOUT DIFF 2022-03-23 05:37:00 Shayy [facility] MAGNESIUM 2022-03-23 05:37:00 Tamarack [facility] C-REACTIVE PROTEIN 2022-03-23 05:37:00 Tamarack [facility] BASIC METABOLIC PANEL (NA, 2022-03-23 05:37:00 Maximo Lucas [facility] K, CL, CO2, GLUCOSE, BUN, Medica l Branch CREATININE, CA) CBC WITHOUT DIFF 2022-03-23 05:37:00 Shayy [facility] SEDIMENTATION RATE 2022-03-23 04:17:00 Shayy [facility] SEDIMENTATION RATE 2022-03-23 04:17:00 Shayy [facility] SEDIMENTATION RATE 2022-03-23 04:17:00 Shayy [facility] SEDIMENTATION RATE 2022-03-23 04:17:00 Shayy [facility] SEDIMENTATION RATE 2022-03-23 04:17:00 Shayy [facility] VANCOMYCIN TROUGH 2022-03-23 02:24:00 [facility] 2022-03-23 02:24:00 [facility] 2022-03-23 02:24:00 [facility] 2022-03-23 02:24:00 [facility] 2022-03-23 02:24:00 [facility] PO[facility]UCOSE (AUTOMATED) 2022-03-23 01:20:00 George Barrett [facility] POCT GLUCOSE (AUTOMATED) 2022-03-23 01:20:00 George Barrett [facility] POCT GLUCOSE (AUTOMATED) 2022-03-23 01:20:00 George Barrett [facility] POCT GLUCOSE (AUTOMATED) 2022-03-23 01:20:00 George Barrett [facility] POCT GLUCOSE (AUTOMATED) 2022-03-23 01:20:00 George Barrett [facility] POCT GLUCOSE (AUTOMATED) 2022-03-22 23:39:00 George Barrett [facility] POCT GLUCOSE (AUTOMATED) 2022-03-22 23:39:00 George Barrett [facility] POCT GLUCOSE (AUTOMATED) 2022-03-22 23:39:00 George Barrett [facility] POCT GLUCOSE (AUTOMATED) 2022-03-22 23:39:00 George Barrett [facility] POCT GLUCOSE (AUTOMATED) 2022-03-22 23:39:00 George Barrett [facility] POCT GLUCOSE (AUTOMATED) 2022-03-22 16:52:00 Edionwe [facility] POCT GLUCOSE (AUTOMATED) 2022-03-22 16:52:00 Edionwe, [facility] POCT GLUCOSE (AUTOMATED) 2022-03-22 16:52:00 Edionwe, [facility] POCT GLUCOSE (AUTOMATED) 2022-03-22 16:52:00 Edionwe, [facility] POCT GLUCOSE (AUTOMATED) 2022-03-22 16:52:00 Edionwe, [facility] POCT GLUCOSE (AUTOMATED) 2022-03-22 12:56:00 Edionwe, [facility] POCT GLUCOSE (AUTOMATED) 2022-03-22 12:56:00 Edionwe, [facility] POCT GLUCOSE (AUTOMATED) 2022-03-22 12:56:00 Edionwe, [facility] POCT GLUCOSE (AUTOMATED) 2022-03-22 12:56:00 Edionwe, [facility] POCT GLUCOSE (AUTOMATED) 2022-03-22 12:56:00 Edionwe, [facility] BASIC METABOLIC PANEL (NA, 2022-03-22 08:59:00 Gurvinder Boyer [facility] K, CL, CO2, GLUCOSE, BUN, Medica l Branch CREATININE, CA) CBC WITH DIFF 2022-03-22 08:59:00 Gurvinder Boyer [facility] BASIC METABOLIC PANEL (NA, 2022-03-22 08:59:00 [facility], CO2, GLUCOSE, BUN, Medica l Branch CREATININE, CA) CBC WITH DIFF 2022-03-22 08:59:00 Gurvinder Boyer [facility] BASIC METABOLIC PANEL (NA, 2022-03-22 08:59:00 Gurvinder Boyer [facility] K, CL, CO2, GLUCOSE, BUN, Medica l Branch CREATININE, CA) CBC WITH DIFF 2022-03-22 08:59:00 Gurvinder Boyer [facility] BASIC METABOLIC PANEL (NA, 2022-03-22 08:59:00 Merlin [facility] K, CL, CO2, GLUCOSE, BUN, Medica l Branch CREATININE, CA) CBC WITH DIFF 2022-03-22 08:59:00 [facility]IC METABOLIC PANEL (NA, 2022-03-22 08:59:00 [facility], [facility], CO2, GLUCOSE, BUN, Medica l Branch CREATININE, CA) CBC WITH DIFF 2022-03-22 08:59:00 [facility] PO[facility] GLUCOSE (AUTOMATED) 2022-03-22 01:38:00 [facility]) 2022-03-22 01:38:00 Edlexi [facility]SE (AUTOMATED) 2022-03-22 01:38:00 [facility]Che [facility]SE (AUTOMATED) 2022-03-22 01:38:00 Edionhima [facility] POCT GLUCOSE (AUTOMATED) 2022-03-22 01:38:00 Ed[facility]SE (AUTOMATED) 2022-03-21 21:42:00 Edlexi [facility] POCT GLUCOSE (AUTOMATED) 2022-03-21 21:42:00 Edelxi [facility]SE (AUTOMATED) 2022-03-21 21:42:00 Edionwe, [facility] [place] [facility] POCT GLUCOSE (AUTOMATED) 2022-03-21 21:42:00 Cain [facility] [place] [facility] POCT GLUCOSE (AUTOMATED) 2022-03-21 21:42:00 Thomas Barlowy [facility] [place] [facility] VANCOMYCIN RANDOM LEVEL 2022-03-21 16:48:00 Celso Druan [facility] [place] [facility] POCT GLUCOSE (AUTOMATED) 2022-03-21 16:48:00 Che Barlow [facility] [place] [facility] VANCOMYCIN RANDOM LEVEL 2022-03-21 16:48:00 Celso Duran [facility] [place] [facility] POCT GLUCOSE (AUTOMATED) 2022-03-21 16:48:00 Che Barlow [facility] [place] [facility] VANCOMYCIN RANDOM LEVEL 2022-03-21 16:48:00 Celso Duran [facility] POCT GLUCOSE (AUTOMATED) 2022-03-21 16:48:00 Che Barlow [facility] [place] [facility] VANCOMYCIN RANDOM LEVEL 2022-03-21 16:48:00 Celso Duran [facility] [place] [facility] POCT GLUCOSE (AUTOMATED) 2022-03-21 16:48:00 Thomas Barlowy [facility] [place] [facility] VANCOMYCIN RANDOM LEVEL 2022-03-21 16:48:00 Celso Duran [facility] [place] [facility] POCT GLUCOSE (AUTOMATED) 2022-03-21 16:48:00 Thomas Barlowy [facility] [place] [facility] POCT GLUCOSE (AUTOMATED) 2022-03-21 13:28:00 Thomas Barlowy [facility] [place] [facility] POCT GLUCOSE (AUTOMATED) 2022-03-21 13:28:00 EdThomas elliotty [facility] [place] [facility] POCT GLUCOSE (AUTOMATED) 2022-03-21 13:28:00 Thomas Barlowy [facility] [place] [facility] POCT GLUCOSE (AUTOMATED) 2022-03-21 13:28:00 Cain [facility] [place] [facility] POCT GLUCOSE (AUTOMATED) 2022-03-21 13:28:00 Thomas Barlowy [facility] LIPID PANEL (77160)(TOTAL 2022-03-21 09:11:00 [facility] CHOLESTEROL, [facility] TRIGLYCERIDES, HDL) LIPID PANEL ([id number])(TOTAL 2022-03-21 09:11:00 [facility] CHOLESTEROL, [facility] TRIGLYCERIDES, HDL) LIPID PANEL (78640)(TOTAL 2022-03-21 09:11:00 [facility] CHOLESTEROL, [facility] TRIGLYCERIDES, HDL) LIPID PANEL ([id number])(TOTAL 2022-03-21 09:11:00 Merlin [facility] CHOLESTEROL, Medical Branch TRIGLYCERIDES, HDL) LIPID PANEL ([id number])(TOTAL 2022-03-21 09:11:00 Merlin [facility] CHOLESTEROL, [facility] TRIGLYCERIDES, HDL) POCT GLUCOSE (AUTOMATED) 2022-03-21 01:35:00 Edlexi, [facility] POCT GLUCOSE (AUTOMATED) 2022-03-21 01:35:00 Edionwe, [facility] [place] [facility] POCT GLUCOSE (AUTOMATED) 2022-03-21 01:35:00 Edionwe, [facility] [place] [facility] POCT GLUCOSE (AUTOMATED) 2022-03-21 01:35:00 Edionwe, [facility] [place] [facility] POCT GLUCOSE (AUTOMATED) 2022-03-21 01:35:00 Edionwe, [facility] [place] [facility] POCT GLUCOSE (AUTOMATED) 2022-03-20 22:01:00 Edionwe, [facility] [place] [facility] POCT GLUCOSE (AUTOMATED) 2022-03-20 22:01:00 Edionwe, [facility] [place] [facility] POCT GLUCOSE (AUTOMATED) 2022-03-20 22:01:00 Edionwe, [facility] [place] [facility] POCT GLUCOSE (AUTOMATED) 2022-03-20 22:01:00 Edionwe, [facility] [place] [facility] POCT GLUCOSE (AUTOMATED) 2022-03-20 22:01:00 Edionwe, [facility] POCT GLUCOSE (AUTOMATED) 2022-03-20 16:38:00 Edionwe, [facility] POCT GLUCOSE (AUTOMATED) 2022-03-20 16:38:00 [facility] ([facility]OMATED) 2022-03-20 16:38:00 [facility]SE (AUTOMATED) 2022-03-20 16:38:00 [facility] PO[facility]SE (AUTOMATED) 2022-03-20 16:38:00 Che Barlow [facility] VANCOMYCIN TROUGH 2022-03-20 15:18:00 Roger [facility] VANCOMYCIN TROUGH 2022-03-20 15:18:00 Roger [facility] VANCOMYCIN TROUGH 2022-03-20 15:18:00 Roger [facility] VANCOMYCIN TROUGH 2022-03-20 15:18:00 Roger [facility] VANCOMYCIN TROUGH 2022-03-20 15:18:00 Celso Duran [facility] DUPLEX ARTERIAL LEG LEFT - 2022-03-20 13:52:00 Denilson Corona [facility] [place] BY VASCULAR LAB Medical Branch DUPLEX ARTERIAL LEG LEFT - 2022-03-20 13:52:00 Denilson Corona [facility] [place] BY VASCULAR LAB Medical Branch DUPLEX ARTERIAL LEG LEFT - 2022-03-20 13:52:00 Denilson Corona [facility] [place] BY VASCULAR LAB Medical Branch DUPLEX ARTERIAL LEG LEFT - 2022-03-20 13:52:00 Denilson Corona [facility] [place] BY VASCULAR LAB Medical Branch DUPLEX ARTERIAL LEG LEFT - 2022-03-20 13:52:00 Denilson Corona [facility] [place] BY VASCULAR LAB [facility] URINALYSIS 2022-03-20 12:52:00 Marilu Villar [facility] URINALYSIS 2022-03-20 12:52:00 Marilu Villar [facility] URINALYSIS 2022-03-20 12:52:00 Marilu Villar [facility] URINALYSIS 2022-03-20 12:52:00 Marilu Villar [facility] URINALYSIS 2022-03-20 12:52:00 Marilu Villar [facility] POCT GLUCOSE (AUTOMATED) 2022-03-20 12:26:00 CainChe [facility] POCT GLUCOSE (AUTOMATED) 2022-03-20 12:26:00 [facility] POCT GLUCOSE (AUTOMATED) 2022-03-20 12:26:00 Ed[facility]hima [facility] POCT GLUCOSE (AUTOMATED) 2022-03-20 12:26:00 Edionhima [facility] POCT GLUCOSE (AUTOMATED) 2022-03-20 12:26:00 Cain [facility] CBC WITH DIFF 2022-03-20 10:04:00 Cain [facility] BASIC METABOLIC PANEL (NA, 2022-03-20 10:04:00 Edionwe, [facility] [place] K, CL, CO2, GLUCOSE, BUN, Medica l Branch CREATININE, CA) N-TERMINAL PRO-BNP 2022-03-20 10:04:[address] [facility] BASIC METABOLIC PANEL (NA, 2022-03-20 10:04:00 Edionwe, [facility] [place] K, CL, CO2, GLUCOSE, BUN, Medica l Branch CREATININE, CA) CBC WITH DIFF 2022-03-20 10:04:00 Cain [facility] N-TERMINAL PRO-BNP 2022-03-20 10:04:[address] [facility] BASIC METABOLIC PANEL (NA, 2022-03-20 10:04:00 Edionwe, [facility] [place] K, CL, CO2, GLUCOSE, BUN, Medica l Branch CREATININE, CA) CBC WITH DIFF 2022-03-20 10:04:00 Cain [facility] N-TERMINAL PRO-BNP 2022-03-20 10:04:[address] [facility] BASIC METABOLIC PANEL (NA, 2022-03-20 10:04:00 [facility], [facility]2, GLUCOSE, BUN, Medica l Branch CREATININE, CA) CBC WITH DIFF 2022-03-20 10:04:00 Cain [facility] N-TERMINAL PRO-BNP 2022-03-20 10:04:[address] [facility] BASIC METABOLIC PANEL (NA, 2022-03-20 10:04:00 [facility], CO2, GLUCOSE, BUN, Medica l Branch CREATININE, CA) CBC WITH DIFF 2022-03-20 10:04:00 Cain [facility] N-TERMINAL PRO-BNP 2022-03-20 10:04:[address] [facility] POCT GLUCOSE (AUTOMATED) 2022-03-20 01:13:00 Thomas Barlowy [facility] POCT GLUCOSE (AUTOMATED) 2022-03-20 01:13:00 Edlexi [facility] [place] [facility] POCT GLUCOSE (AUTOMATED) 2022-03-20 01:13:00 EdThomas elliotty [facility] [place] [facility] POCT GLUCOSE (AUTOMATED) 2022-03-20 01:13:00 Edlexi [facility] [place] [facility] POCT GLUCOSE (AUTOMATED) 2022-03-20 01:13:00 EdThomas elliotty [facility] [place] [facility] POCT GLUCOSE (AUTOMATED) 2022-03-19 22:00:00 EdThomas elliotty [facility] [place] [facility] POCT GLUCOSE (AUTOMATED) 2022-03-19 22:00:00 Edlexi [facility] [place] [facility] POCT GLUCOSE (AUTOMATED) 2022-03-19 22:00:00 Edlexi [facility] [place] [facility] POCT GLUCOSE (AUTOMATED) 2022-03-19 22:00:00 Edlexi [facility] [place] [facility] POCT GLUCOSE (AUTOMATED) 2022-03-19 22:00:00 EdionweThomasy [facility] [place] [facility] POCT GLUCOSE (AUTOMATED) 2022-03-19 16:42:00 CainChe [facility] POCT GLUCOSE (AUTOMATED) 2022-03-19 16:42:00 Cain Che [facility] [place] [facility] POCT GLUCOSE (AUTOMATED) 2022-03-19 16:42:00 Cain Che Philip versity of [facility] POCT GLUCOSE (AUTOMATED) 2022-03-19 16:42:00 CainChe [facility] POCT GLUCOSE (AUTOMATED) 2022-03-19 16:42:00 Cain Che Philip versity of [facility] BASIC METABOLIC PANEL (NA, 2022-03-19 15:22:00 Nwokedi, [...] CREATININE, CA) POCT GLUCOSE (AUTOMATED) 2022-03-19 12:30:00 CainChe [facility] POCT GLUCOSE (AUTOMATED) 2022-03-19 12:30:00 Cain Che [facility] [place] [facility] POCT GLUCOSE (AUTOMATED) 2022-03-19 12:30:00 Cain Che [facility] POCT GLUCOSE (AUTOMATED) 2022-03-19 12:30:00 Cain Che [facility] POCT GLUCOSE (AUTOMATED) 2022-03-19 12:30:00 Che Barlow Uni versity of [facility] BASIC METABOLIC PANEL (NA, 2022-03-19 09:10:00 [place], [facility] [place] K, CL, CO2, GLUCOSE, BUN, Medica l Branch CREATININE, CA) BASIC METABOLIC PANEL (NA, 2022-03-19 09:10:00 [place], [facility] [place] K, CL, CO2, GLUCOSE, BUN, Medica l Branch CREATININE, CA) BASIC METABOLIC PANEL (NA, 2022-03-19 09:10:00 [place], [facility] [place] K, CL, CO2, GLUCOSE, BUN, Medica l Branch CREATININE, CA) BASIC METABOLIC PANEL (NA, 2022-03-19 09:10:00 [place], [facility] [place] K, CL, CO2, GLUCOSE, BUN, Medica l Branch CREATININE, CA) BASIC METABOLIC PANEL (NA, 2022-03-19 09:10:00 [place], [facility] [place] K, CL, CO2, GLUCOSE, BUN, Medica l Branch CREATININE, CA) POCT GLUCOSE(AGE >30DAYS) 2022-03-19 07:48:00 Marilu Villar Un [facility]ity of [facility] POCT GLUCOSE(AGE >30DAYS) 2022-03-19 07:48:00 Marilu Villar [facility] [place] [facility] POCT GLUCOSE(AGE >30DAYS) 2022-03-19 07:48:00 aMrilu Villar [facility] [place] [facility] POCT GLUCOSE(AGE >30DAYS) 2022-03-19 07:48:00 Marilu Villar [facility] [place] [facility] POCT GLUCOSE(AGE >30DAYS) 2022-03-19 07:48:00 Marilu Villar [facility] POCT GLUCOSE (AUTOMATED) 2022-03-19 07:42:00 Marilu Villar [facility] of [facility] POCT GLUCOSE (AUTOMATED) 2022-03-19 07:42:00 Marilu Villar Uni [facility] of [facility] POCT GLUCOSE (AUTOMATED) 2022-03-19 07:42:00 Marilu Villar [facility] POCT GLUCOSE (AUTOMATED) 2022-03-19 07:42:00 Marilu Villar [facility] POCT GLUCOSE (AUTOMATED) 2022-03-19 07:42:00 Marilu Villar [facility] XR CHEST 1 2022-03-19 07:06:32 Marilu Villar [facility] XR CHEST 1 2022-03-19 07:06:32 Marilu Villar [facility] XR CHEST 1 2022-03-19 07:06:32 Marilu Villar [facility] XR CHEST 1 2022-03-19 07:06:32 Marilu Villar [facility] XR CHEST 1 2022-03-19 07:06:32 Marilu Villar [facility] XR TOES 2 LEFT 2022-03-19 06:40:00 Marilu Villar [facility] XR TOES 2 LEFT 2022-03-19 06:40:00 Marilu Villar [facility] XR TOES 2 LEFT 2022-03-19 06:40:00 Marilu Villar Karena [facility] XR TOES 2 LEFT 2022-03-19 06:40:00 Marilu Villar [facility] XR TOES 2 LEFT 2022-03-19 06:40:00 Marilu Villar [facility] HB ECG ROUTINE & RHYTHM 2022-03-19 06:35:34 Marilu Villar [facility] HB ECG ROUTINE & RHYTHM 2022-03-19 06:35:34 Marilu Villar [facility] HB ECG ROUTINE & RHYTHM 2022-03-19 06:35:34 Marilu Villar [facility] HB ECG ROUTINE & RHYTHM 2022-03-19 06:35:34 Marilu Villar [facility] HB ECG ROUTINE & RHYTHM 2022-03-19 06:35:34 Marilu Villar [facility] AC PANEL 21 + LACTIC ACID 2022-03-19 06:20:00 Marilu Villar [facility] AC PANEL 21 + LACTIC ACID 2022-03-19 06:20:00 Marilu Villar [facility] of [facility] AC PANEL 21 + LACTIC ACID 2022-03-19 06:20:00 Marilu Villar Un [facility]ity of [facility] AC PANEL 21 + LACTIC ACID 2022-03-19 06:20:00 Marilu Villar [facility] of [facility] AC PANEL 21 + LACTIC ACID 2022-03-19 06:20:00 [facility] 2022-03-19 06:16:00 Marilu Villar [facility] CBC WITH DIFF 2022-03-19 06:16:00 aMrilu Villar [facility] COMP. METABOLIC PANEL 2022-03-19 06:16:00 Marilu Villar [facility] ([id number]) [facility] Branch GLYCOSYLATED HEMOGLOBIN 2022-03-19 06:16:00 Rahul [facility] ([facility]) [facility] BLOOD CULTURE SCREEN 2022-03-19 06:16:00 Marilu Villar [facility] COMP. METABOLIC PANEL 2022-03-19 06:16:00 Marilu Villar [facility] ([id number]) Medical Branch CBC WITH DIFF 2022-03-19 06:16:00 Marilu Villar [place] [facility] GLYCOSYLATED HEMOGLOBIN 2022-03-19 06:16:00 Rahul [facility] ([facility]) Medical Branch BLOOD CULTURE SCREEN 2022-03-19 06:16:00 Marilu Villar [facility] COMP. METABOLIC PANEL 2022-03-19 06:16:00 Marilu Villar [facility] ([id number]) Medical Branch CBC WITH DIFF 2022-03-19 06:16:00 Marilu Villar [facility] Branch GLYCOSYLATED HEMOGLOBIN 2022-03-19 06:16:00 Rahul [facility] ([facility]) Medical [place] BLOOD CULTURE SCREEN 2022-03-19 06:16:00 Marilu Villar [facility] COMP. METABOLIC PANEL 2022-03-19 06:16:00 Marilu Villar [facility] ([id number]) [facility] CBC WITH DIFF 2022-03-19 06:16:00 Marilu Villar [place] [facility] GLYCOSYLATED HEMOGLOBIN 2022-03-19 06:16:00 GerPending sale to [facility] BLOOD CULTURE SCREEN 2022-03-19 06:16:00 Marilu Villar [facility] COMP. METABOLIC PANEL 2022-03-19 06:16:00 Marilu Villar [facility] ([id number]) [facility] CBC WITH DIFF 2022-03-19 06:16:00 Marilu Villar [place] [facility] GLYCOSYLATED HEMOGLOBIN 2022-03-19 06:16:00 Ger [facility] ([facility]) [facility] POCT GLUCOSE(AGE >30DAYS) 2022-03-19 06:15:00 Marilu Villar [facility] POCT GLUCOSE(AGE >30DAYS) 2022-03-19 06:15:00 Marilu Villar [facility] POCT GLUCOSE(AGE >30DAYS) 2022-03-19 06:15:00 Marilu Villar [facility] POCT GLUCOSE(AGE >30DAYS) 2022-03-19 06:15:00 Marilu Villar [facility] POCT GLUCOSE(AGE >30DAYS) 2022-03-19 06:15:00 Marilu Villar [facility] POCT GLUCOSE (AUTOMATED) 2022-03-19 06:13:00 Marilu Villar [facility] POCT GLUCOSE (AUTOMATED) 2022-03-19 06:13:00 JianMarilu blair versity [facility] POCT GLUCOSE (AUTOMATED) 2022-03-19 06:13:00 Marilu Villar [facility] POCT GLUCOSE (AUTOMATED) 2022-03-19 06:13:00 Marilu Villar [facility] POCT GLUCOSE (AUTOMATED) 2022-03-19 06:13:00 Marilu Villar Uni versity [facility] CONSENT/REFUSAL FOR 2022-03-19 05:46:54 Doctor Unassigned, [facility] [place] [facility] [place] [facility] CONSENT/REFUSAL FOR 2022-03-19 05:46:54 Doctor Unassigned, [facility] [place] [facility] [place] [facility] CONSENT/REFUSAL FOR 2022-03-19 05:46:54 Doctor Unassigned, [facility] [place] [facility] [place] [facility] CONSENT/REFUSAL FOR 2022-03-19 05:46:54 Doctor Unassigned, Unive rsity [facility] DIAGNOSIS AND TREATMENT [place] [facility] CONSENT/REFUSAL FOR 2022-03-19 05:46:54 Doctor Unassigned, [facility] [place] [facility] [place] [facility] HOSPITAL ADMISSION 2022-03-19 05:01:00 Doctor Unassigned, [facility] [place] [facility] HOSPITAL ADMISSION 2022-03-19 05:01:00 Doctor Unassigned, [facility] [place] [facility] 2022-03-19 05:01:00 Doctor Unassigned, [facility] [place] [facility] HOSPITAL ADMISSION 2022-03-19 05:01:00 Doctor [facility]igned, [facility] [place] [facility] H[facility]ITAL ADMISSION 2022-03-19 05:01:00 Doctor Unassigned, [facility] POCT HEMOGLOBIN A1C TEST 2022-01-12 21:05:00 [facility]C TEST 2022-01-12 21:05:00 [facility] Planned Activity Planned Date Details Comments Source Future Scheduled 2022 Screening for [facility] [place] Test 00:00:00 malignant neoplasm of Medica l Branch colon (procedure) [code = 929459175] Future Scheduled 2022 Screening for [facility] [place] Test 00:00:00 malignant neoplasm of Medica l Branch colon (procedure) [code = 148187261] Future Scheduled 2021-09-07 Creatinine [facility] [place] Test 00:00:00 measurement Medical Branch (procedure) [code = 35151479] Future Scheduled 2021-09-07 Creatinine [facility] [place] Test 00:00:00 measurement Medical Branch (procedure) [code = 88662134] Future Scheduled 2021-09-05 Calculated low [facility] [place] Test 00:00:00 density lipoprotein Medical Branch cholesterol level (procedure) [code = 637218465] Future Scheduled 2021-09-05 Calculated low [facility] [place] Test 00:00:00 density lipoprotein Medical Branch cholesterol level (procedure) [code = 783737665] Future Scheduled 2021-05-08 Depression screening [facility] [place] Test 00:00:00 (procedure) [code = Medical Branch 051691056] Future Scheduled 2021-05-08 Depression screening [facility] [place] Test 00:00:00 (procedure) [code = Medical Branch 377576123] Future Scheduled 2021-03-07 Hemoglobin A1c [facility] [place] Test 00:00:00 measurement Medical Branch (procedure) [code = 61273634] Future Scheduled 2021-03-07 Hemoglobin A1c [facility] [place] Test 00:00:00 measurement Medical Branch (procedure) [code = 30545049] Future Scheduled 2021-01-27 INFLUENZA VACCINE [facility] [place] Test 00:00:00 (Season Ended) [code Medical Branch = INFLUENZA VACCINE (Season Ended)] Future Scheduled 2021-01-27 INFLUENZA VACCINE [facility] [place] Test 00:00:00 (Season Ended) [code Medical Branch = INFLUENZA VACCINE (Season Ended)] Future Scheduled 2020-10-31 Screening for [facility] [place] Test 00:00:00 malignant neoplasm of Medica l Branch breast (procedure) [code = 462912425] Future Scheduled 2020-10-31 Screening for [facility] [place] Test 00:00:00 malignant neoplasm of Medica l Branch breast (procedure) [code = 275977974] Future Scheduled 2020-09-25 Screening for [facility] [place] Test 00:00:00 malignant neoplasm of Medica l Branch cervix (procedure) [code = 237748766] Future Scheduled 2020-09-25 Screening for [facility] Test 00:00:00 malignant neoplasm of Medica l Branch cervix (procedure) [code = 916675778] Future Scheduled 2020-05-10 Diabetic foot [facility] Test 00:00:00 examination Medical Branch (regime/therapy) [code = 864770701] Future Scheduled 2020-05-10 Diabetic foot [facility] Test 00:00:00 examination Medical Branch (regime/therapy) [code = 140047502] Future Scheduled 2019-09-01 Microalbumin [facility] Test 00:00:00 measurement, urine, Medical Branch quantitative (procedure) [code = 805148438] Future Scheduled 2019-09-01 Microalbumin [facility] Test 00:00:00 measurement, urine, Medical Branch quantitative (procedure) [code = 262471835] Future Scheduled 1991 DTaP,Tdap,and Td Univers ity [facility] Test 00:00:00 Vaccines (1 - Tdap) Medical Branch [code = DTaP,Tdap,and Td Vaccines (1 - Tdap)] Future Scheduled 1991 DTaP,Tdap,and Td [facility] [place] Test 00:00:00 Vaccines (1 - Tdap) Medical Branch [code = DTaP,Tdap,and Td Vaccines (1 - Tdap)] Future Scheduled 1990 Hepatitis C screening [facility] [place] Test 00:00:00 (procedure) [code = Medical Branch 859107454] Future Scheduled 1990 Hepatitis C screening [facility] [place] Test 00:00:00 (procedure) [code = Medical Branch 722562044] Future Scheduled 1988 SARS-CoV-2 (COVID-19) [facility] [place] Test 00:00:00 Vaccine (1) [code = Medical Branch SARS-CoV-2 (COVID-19) Vaccine (1)] Future Scheduled 1988 SARS-CoV-2 (COVID-19) [facility] [place] Test 00:00:00 Vaccine (1) [code = Medical Branch SARS-CoV-2 (COVID-19) Vaccine (1)] Future Scheduled 1982 Examination of retina [facility] [place] Test 00:00:00 (procedure) [code = Medical Branch 840082809] Future Scheduled 1982 Examination of retina [facility] [place] Test 00:00:00 (procedure) [code = Medical Branch 047011838] Future Scheduled 1978 PNEUMOCOCCAL 0-64 Univer sity [...] Type Clinicians Facility Department ID 2021-03-29 Emergency [facility] [id number] Univers 23:28:09 ity of [facility] 2021-03-28 Emergency X [facility] [id number] Univers 11:58:59 ity of [facility] 2021-03-28 Emergency [facility] [id number] Univers 11:58:17 ity of [facility] 2021-03-26 Emergency [facility] [id number] Univers 12:39:58 ity [facility] 2022-04-15 2022-04-15 Outpatient R MARK [facility] [id number] Univers 16:00:00 16:56:56 ANATOLY ity [facility] 2022-04-14 2022-04-14 Outpatient R MAGNUS [facility] [id number] Univers 11:30:00 11:42:13 YULIANA ity [facility] 2022-04-14 2022-04-14 Office VICKIE Carrasco 1.2.840.114 [id number] Univers 11:30:00 11:42:13 Visit Yuliana R Y HEALTH 350.1.13.10 ity of CLINICS 4.2.7.2.686 [place] [phone] [place] [address] Branch 2022-04-06 2022-04-06 Transition MATTHEW Gonzalez 1.2.840.114 [id number] Univers 00:00:00 00:00:00 of Care Garcia Avery HANEY 350.1.13.10 [place] [phone] [facility] 403 Branch 2022-03-19 2022-04-05 Inpatient U [facility] [id number] Univers 00:57:00 15:32:00 RACHELLE ity of [facility] 2022-03-19 2022-04-05 Hospital Marilu Villar 1.2.840.1 [id number] Univers 00:57:00 15:32:00 Encounter Che Barlow AIDA 350.1.13.10 ity of [place] [facility] 4.2.7.2.68 6 [place] Rachelle Guthrie [phone] Medical Natalie, Alden M 098 B [facility] 2022-04-04 2022-04-04 Telephone VICKIE Scott 1.2.840.11 [id number] Univers 00:00:00 00:00:00 [facility] 350.1.13.10 ity of [facility] 4.2.7.2.[place] [phone] [facility] 205 Branch 2022-03-29 2022-03-29 Surgery DIANA Scott 1.2.840.114 [id number] Univers 09:34:00 12:24:00 Ryanne AIDA 350.1.13.10 ity of [facility] 4.2.7.2.686 Raffy as [phone] [facility] 103 Branch 2022-03-28 2022-03-28 Surgery DIANA Woodward 1.2.840.114 [id number] Univers 11:35:00 13:35:00 Darrel Bennie AIDA 350.1.13.10 it y of [facility] 4.2.7.2.686 Raffy as [phone] [facility] 840 Branch 2022-03-27 2022-03-27 Anesthesia Carine, 1.2.840.1 [id number] Univers 07:57:13 07:57:13 Event Thong 16401.1.1 ity of 3.104.2.7 [place] .3.095938 Medica l .8 Branch 2022-03-25 2022-03-25 Surgery DIANA Scott 1.2.840.114 [id number] Univers 07:00:00 11:02:00 Ryanne PARRA 350.1.13.10 ity of [facility] 4.2.7.2.686 Raffy as [phone] [facility] 103 Branch 2022-03-25 2022-03-25 Anesthesia Jeff Gupta 1.2.840.1 10 [id number] Univers 07:52:00 09:21:00 Event Emmanuel Luis 88514.1.1 ity of 3.104.2.7 [place] .3.977774 Medica l .8 Branch 2022-03-22 2022-03-22 Travel 1.2.840.1 1.2.057.765 [id number] Univers 00:00:00 00:00:00 57414.1.1 350.1.13.10 ity of 3.104.2.7 4.[place]7.3.698 [place] .3.525499 084.8 Medica l .8 Branch 2022-03-19 2022-03-19 Travel 1.2.840.1 1.2.516.171 [id number] Univers 00:00:00 00:00:00 10982.1.1 350.1.13.10 ity of 3.104.2.7 4.[place].3.698 [place] .3.344946 084.8 Medica l .8 Branch 2022-03-15 2022-03-15 Outpatient R VANCE, [facility] [id number] Univers 16:00:00 16:00:00 WENTONG ity of [facility] 2022-03-14 2022-03-14 Telephone Mercedes Flores2.840.6 [id number] Univers 00:00:00 00:00:00 Anatoly Michael 72261.1.1 ity of 3.104.2.7 [place] .3.774193 Medica l .8 Branch 2022-03-01 2022-03-01 Refleticia Flores, 1.2.840.5 [id number] Univers 00:00:00 00:00:00 Anatoly H 37757.1.1 ity of 3.104.2.7 [place] .3.143240 Medica l .8 [place] 2022-01-31 2022-01-31 Refleticia Costa, 1.2.840.7 [id number] Univers 00:00:00 00:00:00 Wondiful A 59746.1.1 i ty of 3.104.2.7 [place] .3.937212 Medica l .8 [place] 2022-01-31 2022-01-31 Telephone Minh, 1.2.840.7 [id number] Univers 00:00:00 00:00:00 Madi 41796.1.1 ity of 3.104.2.7 [place] .3.667450 Medica l .8 [place] 2022-01-21 2022-01-21 Outpatient R MARK [facility] [id number] Univers 12:00:00 12:00:00 [facility] 2022-01-21 2022-01-21 Outpatient R MARK [facility] [id number] Univers 12:00:00 12:00:00 [facility] 2022-01-21 2022-01-21 [facility] [id number] Univers 12:00:00 12:00:00 [facility] 2022-01-21 2022-01-21 Outpatient R MARK [facility] [id number] Univers 12:00:00 12:00:00 [facility] 2022-01-15 2022-01-15 Patient Doctor 1.2.840.7 [id number] Univers 00:00:00 00:00:00 Secure Msg Unassigned, 26495.1.1 ity of [place] 3.104.2.7 [place] .3.527694 Medica l .8 [place] 2022-01-12 2022-01-12 Outpatient R NEO KNUTSON [facility] [id number] Univers 16:00:00 16:41:18 NEO KNUTSON ity of [facility] 2022-01-12 2022-01-12 Office Neo Knutson 1.2.840.7 [id number] Univers 16:00:00 16:41:18 Visit 73644.1.1 ity of 3.104.2.7 [place] .3.083325 Medica l .8 [place] 2022-01-12 2022-01-12 Outpatient R NEO KNUTSON [facility] [id number] Univers 15:30:00 15:30:00 NEO KNUTSON ity of [facility] 2022-01-12 2022-01-12 Travel 1.2.840.1 1.2.098.651 [id number] Univers 00:00:00 00:00:00 45134.1.1 350.1.13.10 ity of 3.104.2.7 4.[place].7.3.698 [place] .3.226680 084.8 Medica l .8 [place] 2021-11-22 2021-11-22 Emergency [facility] [id number] Univers 16:27:00 18:56:00 FABBY turner [facility] 2021-11-22 2021-11-22 Emergency [facility] 1.2.840.114 [id number] Univers 16:27:00 18:56:00 Fabby CHAN 350.1.13.10 ity of [facility] 4.2.7.2.686 [place] [facility] [id number] [facility] 084 [place] 2021-11-22 2021-11-22 Emergency X [facility] ERT [id number] Univers 16:19:00 16:19:00 ity of [facility] 2021-11-22 2021-11-22 Office [facility] 1.2.840.114 [id number] Univers 14:30:00 16:04:36 Visit [facility] 350.1.13.10 it y of [place] 4.2.7.2.686 Raffy as CHARLY?BLEA [id number] [place] [address] MEDICAL OFFICE BUILDING 2021-11-22 2021-11-22 Outpatient R MINH [facility] [id number] Univers 14:30:00 16:04:36 MADI turner [facility] 2021-11-22 2021-11-22 Outpatient R MINH [facility] [id number] Univers 14:30:00 14:30:00 MADI turner [facility] 2021-11-22 2021-11-22 Orders Doctor VAISHALI 1.2.840.114 [id number] Univers 00:00:00 00:00:00 Only Unassigned, AIDA 350.1.13.10 ity of [place] [facility] 4.2.7.2.686 Raffy as [phone] [address] 2021-11-10 2021-11-10 Outpatient R NEO KNUTSON [facility] [id number] Univers 10:00:00 10:00:00 NEO KNUTSON [facility] 2021-11-10 2021-11-10 Outpatient R [facility] [id number] Univers 10:00:00 10:00:00 NEO KNUTSON [facility] 2021-11-10 2021-11-10 Telephone Eamon [facility] 1.2.720.952 [id number] Univers 00:00:00 00:00:00 HEALTH 350.1.13.10 it y of [place] 4.2.7.2.686 Raffy as CHARLY?BLEA [id number] [address] MEDICAL OFFICE [facility] 2021-11-08 2021-11-08 Orders Doctor VAISHALI 1.2.840.114 [id number] Univers 00:00:00 00:00:00 Only Unassigned, AIDA 350.1.13.10 ity of [place] [facility] 4.2.7.2.686 Raffy as [id number] [address] 2021-11-05 2021-11-05 [facility] [id number] Univers 15:30:00 15:30:00 MADI ity [facility] 2021-11-05 2021-11-05 Telephone [facility] 1.2.136.991 [id number] Univers 00:00:00 00:00:00 Adeola HEALTH 350.1.13.10 it y of [place] 4.2.7.2.686 Raffy as CHARLY?BLEA [phone] [facility] [address] [place] MEDICAL OFFICE [facility] 2021-10-20 2021-10-20 Telephone [facility] 1.2.626.867 [id number] Univers 00:00:00 00:00:00 Adeola HEALTH 350.1.13.10 it y of [place] 4.2.7.2.686 Raffy as CHARLY?BLEA [id number] [facility] [address] [place] MEDICAL OFFICE [facility] 2021-10-20 2021-10-20 Orders Doctor AVISHALI 1.2.840.114 [id number] Univers 00:00:00 00:00:00 Only Unassigned, AIDA 350.1.13.10 ity of [place] [facility] 4.2.7.2.686 Raffy as [id number] [address] 2021-10-15 2021-10-15 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, [facility] 1.2.840.1 14 [id number] Univers 09:45:00 10:00:00 Visit Adeola Cuenca [facility] 350.1.13.10 ity of [place] 4.2.7.2.686 Raffy as CHARLY?BLEA [id number] [facility] [address] [facility] OFFICE [facility] 2021-10-15 2021-10-15 Outpatient [facility] [id number] Univers 09:45:00 09:45:00 ADEOLA ity of [facility] 2021-10-15 2021-10-15 Office [facility] 1.2.840.114 [id number] Univers 09:00:00 09:37:13 Visit Adeola HEALTH 350.1.13.10 it y of [place] 4.2.7.2.686 Raffy as CHARLY?BLEA [id number] [address] OFFICE [facility] 2021-10-15 2021-10-15 Outpatient [facility] [id number] Univers 09:00:00 09:37:13 ADEOLA ity of [facility] 2021-10-15 2021-10-15 Outpatient R BANG [facility] [id number] Univers 09:00:00 09:00:00 ADEOLA turner [facility] 2021-08-27 2021-08-27 Outpatient R MARK [facility] [id number] Univers 16:00:00 17:02:36 ANATOLY turner [facility] 2021-08-27 2021-08-27 [facility] [phone] [id number] Univers 16:00:00 17:02:36 Visit Anatoly [facility] [id number] it y of [facility] [id number] Raffy as CHARLY?BLEA [phone] La sonu BURNS 220 [facility] OFFICE [facility] 2021-08-27 2021-08-27 Outpatient [facility] [id number] Univers 16:00:00 16:00:00 ANATOLY romargarette [facility] 2021-08-09 2021-08-09 Orders Doctor VAISHALI 1.2.840.114 [id number] Univers 00:00:00 00:00:00 Only Unassigned, AIDA 350.1.13.10 ity of [place] [facility] 4.2.7.2.686 Raffy as [phone] [address] 2021-07-19 2021-07-19 Orders Doctor TOM 1.2.840.114 [id number] Univers 00:00:00 00:00:00 Only Unassigned, AIDA 350.1.13.10 ity of [place] [facility] 4.2.7.2.686 Raffy as [phone] [address] 2021-07-05 2021-07-05 Latricia Costa [facility] 1.2.840.114 [id number] Univers 00:00:00 00:00:00 Wondiful A HEALTH 350.1.13.10 ity of [place] 4.2.7.2.686 Raffy as CHARLY?BLEA [phone] La sonu BURNS 044 [facility] OFFICE [facility] 2021-06-21 2021-06-21 Outpatient [facility] [id number] Univers 16:00:00 16:54:48 WONDIFUL ity o f [facility] 2021-06-21 2021-06-21 Office [facility] 1.2.840.114 [id number] Univers 16:00:00 16:54:48 Visit Wondiful A HEALTH 350.1.13.10 ity of [facility] 4.2.7.2.686 Raffy as CHARLY?BLEA [phone] [facility] JAIDA [address] [place] MEDICAL OFFICE BUILDING 2021-05-15 2021-05-15 Refill [facility] 1.2.840.114 [id number] Univers 00:00:00 00:00:00 Wondiful A HEALTH 350.1.13.10 ity of [facility] 4.2.7.2.686 Raffy as PROFESSIO [phone] [facility] [address] [place] OFFICE [facility] ONE 2021-05-13 2021-05-13 Orders Doctor VAISHALI 1.2.840.114 [id number] Univers 00:00:00 00:00:00 Only Unassigned, AIDA 350.1.13.10 ity of [place] [facility] 4.2.7.2.686 Raffy as [phone] [facility] [address] [place] 2021-02-12 2021-02-12 Emergency [facility] 1.2.840.114 [id number] Univers 14:34:00 17:16:00 Fabby Chan 350.1.13.10 ity of [place].7.2.[place] [phone] [facility] [address] [place] 2021-02-12 2021-02-12 Office [facility] 1.2.840.114 [id number] Univers 13:04:40 15:13:23 Visit Adeola Health 350.1.13.10 it y of [place] 4.2.7.2.686 Raffy as Charly?Blea [phone] [facility] [address] [place] Medical Office Building 2021-02-12 2021-02-12 Outpatient [facility] [id number] Univers 13:00:00 13:00:00 ADEOLA ity of [facility] 2021-01-19 2021-01-19 Transition Matthew Daniel 1.2.840.114 [id number] Univers 00:00:00 00:00:00 of Care Phyllis Petersony 350.1.13.10 it y of [place].2.7.2.686 [place] [phone] [facility] [address] [place] 2021-01-19 2021-01-19 Transition Matthew Daniel 1.2.840.114 [id number] [id number] Univers 00:00:00 00:00:00 of Care Phyllis Petersony 350.1.13.10 it y of [place]2.7.2.[place] [phone] [facility] [address] [place] 2021-01-15 2021-01-17 [facility] 1.2.840.114 [id number] Univers 15:17:00 13:06:00 Encounter Celso Chan 350.1.13.10 ity of [place] 4.2.7.2.[place] [phone] [facility] [address] [place] 2021-01-15 2021-01-15 Office [facility] 1.2.840.114 [id number] Univers 14:09:25 15:11:21 Visit Lily Chan 350.1.13.10 ity of [place].2.7.2.[place] [phone] La dical nal 059 [facility] 2021-01-15 2021-01-15 Outpatient [facility] [id number] Univers 14:40:00 14:40:00 LILY turner o f [facility] 2021-01-01 2021-01-01 Office [facility] 1.2.845.514 [id number] [id number] Univers 11:28:43 12:58:14 Visit Anatoly Chan 350.1.13.10 i ty of [place].2.7.2.686 [place] [phone] La dical nal 220 [facility] 2021-01-01 2021-01-01 Office [facility] 1.2.931.695 [id number] 7417 Univers 11:28:43 12:58:14 Visit Anatoly Chan 350.1.13.10 i ty [place] [phone] La dical nal [address] 2021-01-01 2021-01-01 Outpatient [facility] [id number] Univers 11:30:00 11:30:00 ANATOLY ity [facility] 2020-12-18 2020-12-18 Refleticia [facility] 1.2.840.114 [id number] Univers 00:00:00 00:00:00 Wondiful A Health 350.1.13.10 ity of [place] 4.2.7.2.686 Raffy as Professio [phone] La dical nal [address] [place] Office Building One 2020-12-02 2020-12-02 Outpatient [facility] [id number] Univers 16:00:00 16:00:00 LILY ity o f [facility] 2020-11-30 2020-12-01 [facility] Lily Jenkins 1.2.840.114 [id number] Univers 17:33:00 15:15:00 Encounter MarquiseRa [place] 350.1.1 3.10 ity [facility] 4.2.7.2 .686 [facility] [phone] 2020-12-01 2020-12-01 Outpatient [facility] [id number] Univers 14:00:00 14:00:00 WONDIFUL ity o f [facility] 2020-11-30 2020-11-30 Outpatient R [facility] [id number] Univers 08:00:00 08:00:00 ity of [facility] 2020-11-30 2020-11-30 [facility] Diana Woodward 1.2.840.114 [id number] Univers 07:45:00 07:59:00 Encounter Darrel A Aida 350.1.13.10 ity of [facility] 4.2.7.2.686 Raffy as [phone] [address] 2020-11-27 2020-11-27 Outpatient R MARK [facility] [id number] Univers 14:00:00 14:00:00 ANATOLY turner of [facility] 2020-11-25 2020-11-25 Telephone Diana Jenkins 1.2.730.814 [id number] 4088 Univers 00:00:00 00:00:00 Lily Parra 350.1.13.10 i ty of Hospital 4.2.7.2.686 Raffy as [phone] [address] 2020-11-25 2020-11-25 Telephone Gianfranco [facility] 1.2.803.720 [id number] Univers 00:00:00 00:00:00 Patient [place] 350.1.13.10 i ty of Does Not [place] 4.2.7.2.686 Raffy as Have A Professio [phone] La dical nal 843 [facility] 2020-11-16 2020-11-16 Telephone Diana Jenkins 1.2.451.099 [id number] 3070 Univers 00:00:00 00:00:00 Lily Parra 350.1.13.10 i ty of [facility] 4.2.7.2.686 Raffy as [phone] [address] 2020-11-13 2020-11-13 Office [facility] 1.2.840.114 [id number] Univers 14:46:41 15:21:27 Visit Lily Chan 350.1.13.10 ity of [place].2.7.2.[place] [phone] La dical nal 059 [facility] 2020-11-13 2020-11-13 Outpatient R GREGORY [facility] [id number] Univers 14:00:00 14:00:00 LILY turner o f [facility] 2020-11-12 2020-11-12 Telephone [facility] 1.2.840.114 [id number] Univers 00:00:00 00:00:00 Wondiful A Health 350.1.13.10 ity of [place] 4.2.7.2.686 Raffy as Professio [phone] La dical nal [address] [place] Office Building One 2020-10-28 2020-10-28 Pre Visit Igor [facility] 1.2.840.114 [id number] Univers 00:00:00 00:00:00 Outreach Wondiful A Health 350.1.13.10 ity of [place] 4.2.7.2.686 Raffy as Professio [phone] [facility] [address]44 [facility] 2020-10-07 2020-10-07 Office Vance [facility] 1.2.840.114 [id number] Univers 13:57:34 15:30:50 Visit Wentong [place] 350.1.13.10 i ty of [place].2.7.2.[place] [phone] [facility] 220 [facility] 2020-10-07 2020-10-07 Outpatient R VANCE [facility] [id number] Univers 14:00:00 14:00:00 [facility] 2020-10-06 2020-10-06 Outpatient R VANCE [facility] [id number] Univers 14:30:00 14:30:00 [facility] 2020-10-01 2020-10-01 Office [facility] 1.2.840.114 [id number] Univers 15:08:27 16:09:31 Visit Wondiful A Health 350.1.13.10 ity of [place] 4.2.7.2.686 Raffy as Professio [phone] [address] 2020-10-01 2020-10-01 Office Igor [facility] 1.2.840.114 [id number] 092 15:08:27 16:09:31 Visit Wondiful A Health 350.1.13.10 [place] 4.2.7.2.686 Professio [phone] [address] 2020-10-01 2020-10-01 Outpatient R IGOR [facility] [id number] Univers 15:00:00 15:00:00 WONDIFUL ity o f [facility] 2020-09-26 2020-09-26 Refill Igor [facility] 1.2.840.114 [id number] Univers 00:00:00 00:00:00 Wondiful A Health 350.1.13.10 ity of [place] 4.2.7.2.686 Raffy as Professio [phone] La dical nal 044 [facility] One 2020-09-24 2020-09-24 [facility] 1.2.840.114 [id number] Univers 00:00:00 00:00:00 Wondiful A Health 350.1.13.10 ity of [place] 4.2.7.2.686 Raffy as Professio [phone] La dical nal 044 [facility] One 2020-09-11 2020-09-11 [facility] 1.2.840.114 [id number] Univers 00:00:00 00:00:00 Wondiful A Health 350.1.13.10 ity of [place] 4.2.7.2.686 Raffy as Professio [phone] [facility] nal [address] [place] [address] One 2020-09-09 2020-09-09 Transition Matthew Gonzalez 1.2.840.114 [id number] Univers 00:00:00 00:00:00 of Care Garcia Petersony 350.1.13.10 ity of [place]2.7.2.[place] [phone] [address] 2020-09-04 2020-09-07 [facility] Ronnie Murry [facility] 1.2.8 40.114 [id number] Univers 20:58:00 18:15:00 Encounter Melly Giraldo 350.1.13.1 0 ity of Elyse Aparicio 4.2.7.2.686 [facility] [phone] [address] 2020-09-04 2020-09-04 Office Mark [facility] 1.2.697.914 [id number] Univers 16:01:54 17:11:05 Visit Anatoly Chan 350.1.13.10 i ty of [place] 4.2.7.2.686 [place] [phone] La dical nal 220 [facility] 2020-09-04 2020-09-04 Outpatient [facility] [id number] Univers 16:00:00 16:00:00 ANATOLY turner [facility] 2020-09-04 2020-09-04 Outpatient R [facility] [id number] Univers 16:00:00 16:00:00 ANATOLY turner [facility] 2020-09-04 2020-09-04 Orders Doctor VAISHALI 1.2.840.114 [id number] Univers 00:00:00 00:00:00 Only Unassigned, AIDA 350.1.13.10 ity of [place] [facility]PITAL 4.2.7.2.686 Raffy as [phone] [address] 2020-08-13 2020-08-13 Patient [facility] 1.2.840.114 [id number] Univers 00:00:00 00:00:00 [facility] 350.1.13.10 i ty of [facility] 4.2.7.2.686 [place] [phone] La dical [address] [place] 2020-08-04 2020-08-04 Refleticia [facility] 1.2.424.222 [id number] Univers 00:00:00 00:00:00 Anatoly Chan 350.1.13.10 i ty of [place] 4.2.7.2.[place] [phone] La dical [facility] 220 [facility] 2020-08-04 2020-08-04 Refleticia [facility] 1.2.840.114 [id number] Univers 00:00:00 00:00:00 Wondiful A Health 350.1.13.10 ity of [place] 4.2.7.2.686 Raffy as Professio [phone] [facility] nal [address] [place] Office Building One 2020-08-03 2020-08-03 Orders Doctor TOM 1.2.840.114 [id number] Univers 00:00:00 00:00:00 Only Unassigned, AIDA 350.1.13.10 ity of [place] [facility] 4.2.7.2.686 Raffy as [phone] [address] 2020-07-16 2020-07-16 Outpatient R IGOR [facility] [id number] Univers 11:15:00 11:15:00 WONDIFUL ity o f [facility] 2020-06-22 2020-06-22 Amy [facility] 1.2.840.114 [id number] Univers 00:00:00 00:00:00 Wondiful A Health 350.1.13.10 ity of [place] 4.2.7.2.686 Raffy as Professio [phone] [address] Office [facility] One 2020-06-08 2020-06-08 Amy Costa [facility] 1.2.840.114 [id number] Univers 00:00:00 00:00:00 Wondiful A Health 350.1.13.10 ity of [place] 4.2.7.2.686 Raffy as Professio [phone] [address] Office [facility] One 2020-06-05 2020-06-05 Amy [facility] 1.2.840.114 [id number] Univers 00:00:00 00:00:00 Wondiful A Health 350.1.13.10 ity of [place] 4.2.7.2.686 Raffy as Professio [phone] [address] One 2020-05-28 2020-05-28 Outpatient Sonya COSTA [facility] [id number] Univers 15:00:00 15:00:00 WONDIFUL ity o f [facility] 2020-05-19 2020-05-19 Amy [facility] 1.2.840.114 [id number] Univers 00:00:00 00:00:00 Wondiful A Health 350.1.13.10 ity of [place] 4.2.7.2.686 Raffy as Professio [phone] [address] Office [facility] 2020-05-14 2020-05-14 Amy [facility] 1.2.840.114 [id number] Univers 00:00:00 00:00:00 Wondiful A Health 350.1.13.10 ity of [place] 4.2.7.2.686 Raffy as Professio [phone] [address] Office [facility] One 2020-05-13 2020-05-13 Case [facility] 1.2.840.114 [id number] Univers 00:00:00 00:00:00 Management Wondiful A Health 350.1.13.10 ity of [place] 4.2.7.2.686 Raffy as Professio [phone] [address] Office Building One 2020-05-08 2020-05-08 Hospital [facility] 1.2.010.668 [id number] 0106 Univers 14:47:36 23:59:00 Encounter Wondiful A [place] 350.1.13.10 ity of [place] 4.2.7.2.686 [place] [phone] [facility] [address] [place] 2020-05-08 2020-05-08 Outpatient R MARK [facility] [id number] Univers 16:30:00 16:30:00 ANATOLY ity of [facility] 2020-05-08 2020-05-08 Office [facility] 1.2.840.114 [id number] Univers 13:10:21 13:58:56 Visit Wondiful A Health 350.1.13.10 ity of [place] 4.2.7.2.686 Raffy as Professio [phone] [address] Office [facility] 2020-05-08 2020-05-08 Orders Doctor VAISHALI 1.2.840.114 [id number] Univers 00:00:00 00:00:00 Only Unassigned, AIDA 350.1.13.10 ity of [place] [facility] 4.2.7.2.686 Raffy as [phone] [facility] [address] [place] 2020-05-01 2020-05-01 Outpatient [facility] [id number] Univers 10:30:00 10:30:00 WONDIFUL ity o f [facility] 2020-04-17 2020-04-17 Telemedic [facility] 1.2.840.114 [id number] Univers 11:00:00 11:30:00 ne Visit Sisi Montero [place] 350.1.13.10 ity of [place] 4.2.7.2.686 [place] [phone] La dical nal 134 [facility] 2020-04-17 2020-04-17 Outpatient R AD, [facility] [id number] Univers 11:00:00 11:00:00 SISI ity of [facility] 2020-04-14 2020-04-14 Refleticia [facility] 1.2.840.114 [id number] Univers 00:00:00 00:00:00 Wondiful A Health 350.1.13.10 ity of [place] 4.2.7.2.686 Raffy as Professio [phone] La dical nal [address] [place] Office [facility] One 2020-04-13 2020-04-13 Refleticia [facility] 1.2.529.112 [id number] [id number] Univers 00:00:00 00:00:00 Anatoly Chan 350.1.13.10 i ty of [place] 4.2.7.2.[place] [phone] La dical nal 220 [facility] 2020-04-08 2020-04-08 Telephone [facility] 1.2.046.857 [id number] Univers 00:00:00 00:00:00 Sisi Kylah LewisOxford 350.1.13.10 ity of [place] 4.2.7.2.[place] [phone] La dical nal 134 [facility] 2020-04-07 2020-04-07 Case [facility] 1.2.840.114 [id number] Univers 00:00:00 00:00:00 Management Ssii [place] 350.1.13.10 ity of [place] 4.2.7.2.686 [place] [phone] La dical nal 134 [facility] 2020-04-03 2020-04-03 Office [facility] 1.2.840.114 [id number] Univers 13:15:01 14:30:02 Visit Sisi [place] 350.1.13.10 ity of [place] 4.2.7.2.686 [place] [phone] [address] 2020-04-03 2020-04-03 Outpatient R ADUM, [facility] [id number] Univers 13:30:00 13:30:00 SISI turner [facility] 2020-04-03 2020-04-03 Outpatient R ADUM, [facility] [id number] Univers 10:30:00 10:30:00 SISI turner [facility] 2020-04-01 2020-04-01 Telephone Olivia Garsiaen [facility] 1.2.840.114 [id number] Univers 00:00:00 00:00:00 Cam [place] 350.1.13.10 i ty of [place] 4.2.7.2.686 [place] [phone] [address] 2020-03-20 2020-03-20 Refleticia [facility] 1..840.114 [id number] [id number] Univers 00:00:00 00:00:00 Wondiful A Health 350.1.13.10 ity of [place] 4.2.7.2.686 Raffy as Professio [phone] [address] 2020-03-09 2020-03-[address] [facility] 1.2.840.114 [id number] [id number] Univers 00:00:00 00:00:00 Wondiful A Health 350.1.13.10 ity of [place] 4.2.7.2.686 Raffy as Professio [phone] [address] 2020-02-17 2020-02-17 Telephone [facility] 1.2.840.114 [id number] Univers 00:00:00 00:00:00 Wondiful A Health 350.1.13.10 ity of [place] 4.2.7.2.686 Raffy as Professio [phone] [address] 2020-02-17 2020-02-17 Telephone [facility] 1..840.114 [id number] [id number] Univers 00:00:00 00:00:00 Wondiful A Health 350.1.13.10 ity of [place] 4.2.7.2.686 Raffy as Professio [phone] [facility] [address] [place] Office Building [facility] 2020-01-13 2020-01-13 Refleticia Costa [facility] 1.2.840.114 [id number] Univers 00:00:00 00:00:00 Wondiful A Health 350.1.13.10 ity of [place] 4.2.7.2.686 Raffy as Professio [phone] [facility] 0[address] [place] Office [facility] 2020-01-11 2020-01-11 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 1, Adc Lab [facility] 1.2.840.114 [id number] Univers 10:55:34 11:10:34 Visit Anatoly Flores 350.1.13.10 ity of [place] 4.2.7.2.686 [place] [phone] [facility] [address] [place] 2020-01-11 2020-01-11 Outpatient R [facility] [id number] Univers 11:00:00 11:00:00 ity of [facility] 2020-01-10 2020-01-10 Office [facility] 1.2.815.586 [id number] Univers 16:40:13 17:43:53 Visit Anatoly Chan 350.1.13.10 i ty of [place] 4.2.7.2.[place] [phone] [facility] 220 [facility] 2020-01-10 2020-01-10 Outpatient [facility] [id number] Univers 16:30:00 16:30:00 ANATOLY ity of [facility] 2019-12-10 2019-12-10 Orders Doctor VAISHALI 1.2.840.114 [id number] Univers 00:00:00 00:00:00 Only Unassigned, AIDA 350.1.13.10 ity of [place] [facility] 4.2.7.2.686 Raffy as [phone] [address] 2019-12-10 2019-12-10 Telephone [facility] 1.2.840.114 [id number] Univers 00:00:00 00:00:00 Anatoly Chan 350.1.13.10 i ty of [place] 4.2.7.2.[place] [phone] [facility] 220 [facility] 2019-12-05 2019-12-05 Refill [facility] 1.2.179.819 [id number] Univers 00:00:00 00:00:00 Anatoly Chan 350.1.13.10 i ty of [place] 4.2.7.2.[place] [phone] [facility] 220 [facility] 2019-11-06 2019-11-06 Outpatient R GREGORY, [facility] [id number] Univers 15:40:00 15:40:00 LILY turner o f [facility] 2019-11-03 2019-11-03 Refleticia [facility] 1.2.840.114 [id number] Univers 00:00:00 00:00:00 Wondiful A Health 350.1.13.10 ity of [place] 4.2.7.2.686 Raffy as Professio [phone] [facility] [address] [place] Office Building One 2019-11-01 2019-11-01 Outpatient [facility] [id number] Univers 11:35:42 23:59:00 ERNST turner of [facility] 2019-11-01 2019-11-01 [facility] 1.2.840.114 [id number] Univers 11:35:00 23:59:00 Encounter Ernst Chan 350.1.13.10 ity of [place] 4.2.7.2.686 [place] [phone] [facility] [address] [place] 2019-11-01 2019-11-01 Orders Doctor VAISHALI 1.2.840.114 [id number] Univers 00:00:00 00:00:00 Only Unassigned, AIDA 350.1.13.10 ity of [place] [facility] 4.2.7.2.686 Raffy as [phone] [facility] [address] 2019-10-11 2019-10-11 Office [facility] 1.2.121.439 [id number] [id number] Univers 14:59:15 16:12:30 Visit Ernst Chan 350.1.13.10 i ty of [place] 4.2.7.2.[place] [phone] La dical nal 134 [facility] 2019-10-11 2019-10-11 Outpatient R KILO [facility] [id number] Univers 15:00:00 15:00:00 ERNST ity [facility] 2019-10-11 2019-10-11 Orders Doctor VAISHALI 1.2.840.114 [id number] Univers 00:00:00 00:00:00 Only Unassigned, AIDA 350.1.13.10 [facility] 4.2.7.2.686 Raffy as [phone] [address] 2019-10-07 2019-10-07 Outpatient R [facility] [id number] Univers 14:00:00 14:00:00 ERNST yue [facility] 2019-09-30 2019-09-30 Refill [facility] 1..714.725 [id number] Univers 00:00:00 00:00:00 Anatoly Chan 350.1.13.10 i ty of [place] 4.2.7.2.[place] [phone] [facility] 220 [facility] 2019-09-20 2019-09-20 Outpatient R [facility] [id number] Univers 16:30:00 16:30:00 ANATOLY turner [facility] 2019-09-20 2019-09-20 Telemedici [facility] 1.2.840.114 [id number] Univers 09:52:35 10:22:35 ne Visit Anatoly Chan 350.1.13.10 ity of [place] 4.2.7.2.686 [place] [phone] La dical [facility] 220 [facility] 2019-08-30 2019-08-30 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 2, Adc Lab [facility] 1.2.840.114 [id number] Univers 09:08:00 09:23:00 Visit Lily Jenkins 350.1.13.10 ity of [place] 4.2.7.2.[place] [phone] La dical nal 353 [facility] 2019-08-30 2019-08-30 Outpatient R [facility] [id number] Univers 09:15:00 09:15:00 QIAJOSEDONNA ity o f [facility] 2019-08-30 2019-08-30 Orders Doctor VAISHALI 1.2.840.114 [id number] Univers 00:00:00 00:00:00 Only Unassigned, AIDA 350.1.13.10 ity of [place] [facility] 4.2.7.2.686 Raffy as [phone] [address] 2019-08-22 2019-08-22 Outpatient R [facility] [id number] Univers 14:00:00 14:00:00 WONDIFUL ity o f [facility] 2019-08-22 2019-08-22 [facility]ici [facility] 1.2.840.114 [id number] Univers 09:19:01 09:49:01 ne Visit Wondiful [facility] 350.1.13.10 ity of [place] 4.2.7.2.686 Raffy as Professio [phone] La dical nal [address] [place] [address] [employer] 2019-08-22 2019-08-22 Transition Matthew Chávez 1.2.840.114 [id number] Univers 00:00:00 00:00:00 of Care Jessica Haney 350.1.13.10 [place] [phone] [facility] [address] [place] 2019-08-20 2019-08-20 Transition Matthew Chávez 1.2.840.114 [id number] Univers 00:00:00 00:00:00 of Care Jessica Haney 350.1.13.10 [place] [phone] [address] 2019-08-19 2019-08-19 Telephone Igor [facility] 1.2.840.114 [id number] Univers 00:00:00 00:00:00 Wondiful [facility] 350.1.13.10 ity of [place] 4.2.7.2.686 Raffy as Professio [phone] La dical nal [address] [place] [address] 2019-08-12 2019-08-16 Inpatient U [facility] [id number] Univers 22:36:00 12:57:00 MOCTEZUMA ity o f [facility] 2019-08-12 2019-08-16 Hospital Diana Romano 1.2.840.114 [id number] Univers 22:36:00 12:57:00 Encounter Rhianna aPrra 350.1.13.10 ity of Hospital 4.2.7.2.686 Raffy as [phone] [facility] [address] [place] 2019-08-16 2019-08-16 Outpatient R [facility] [id number] Univers 10:00:00 10:00:00 ity of [facility] 2019-08-12 2019-08-12 Telephone Gregory [facility] [id number] Univers 00:00:00 00:00:00 Lily Chan 350.1.13.10 ity of [place] Profess[place] [phone] La dical nal 059 [facility] 2019-08-09 2019-08-09 Telephone Diana Jenkins [id number] Univers 00:00:00 00:00:00 Lily [place] 350.1.13.10 i ty of Hospital 4.2.7.2.686 Raffy as [phone] [address] 2019-08-07 2019-08-07 Telephone Diana Jenkins 1.2.997.226 [id number] Univers 00:00:00 00:00:00 Qiangjun [place] 350.1.13.10 i ty of Hospital 4.2.7.2.686 Raffy as [phone] [address] 2019-08-05 2019-08-06 [facility] 1.2.840.114 [id number] Univers 10:54:42 21:31:12 Visit Lily Chan 350.1.13.10 ity of [place] Profess[place] [phone] La dical nal 059 [facility] 2019-08-05 2019-08-05 Outpatient R GREGORY [facility] [id number] Univers 11:20:00 11:20:00 LILY turner o f [facility] 2019-08-05 2019-08-05 Orders Doctor VAISHALI 1.2.840.114 [id number] Univers 00:00:00 00:00:00 Only Unassigned, AIDA 350.1.13.10 ity of [place] [facility] 4.2.7.2.686 Raffy as [phone] [address] 2019-02-04 2019-02-04 [facility] 1.2.840.114 [id number] Univers 09:40:44 10:41:11 Visit Lily Chan 350.1.13.10 ity of [place] Profess[place] [phone] La dical nal 059 [facility] 2019-02-04 2019-02-04 Orders Doctor TOM 1.2.840.114 [id number] Univers 00:00:00 00:00:00 Only Unassigned, AIDA 350.1.13.10 ity of [place] [facility] 4.2.7.2.686 Raffy as [phone] [address] 2019-01-04 2019-01-04 Office Mark [facility] 1.2.651.[id number] [facility] 14:30:15 15:51:35 Visit Anatoly Chan 350.1.13.10 i ty of [place] Profess[place] [phone] La dical nal 220 [facility] 2019-01-04 2019-01-04 Orders Doctor VAISHALI 1.2.840.114 [id number] Univers 00:00:00 00:00:00 Only Unassigned, AIDA 350.1.13.10 ity of [place] [facility] 4.2.7.2.686 Raffy as [phone] [address] 2018-12-20 2018-12-20 Orders Doctor TOM 1.2.840.114 [id number] Univers 00:00:00 00:00:00 Only Unassigned, AIDA 350.1.13.10 ity of [place] [facility] 4.2.7.2.686 Raffy as [phone] [place] [address] [address] 2018-12-06 2018-12-06 Orders Doctor VAISHALI 1.2.840.114 [id number] Univers 00:00:00 00:00:00 Only Unassigned, AIDA 350.1.13.10 ity of [place] [facility] 4.2.7.2.686 Raffy as [phone] [place] [address] [address] 2018-06-27 2018-06-27 Outpatient [facility] [id number] Common 11:57:00 11:57:[address] [facility] 2018-06-15 2018-06-15 Out[facility] 23 [id number] Common 16:24:00 16:24:[address] [facility] 2018-06-13 2018-06-13 Out[facility] 22 [id number] Common 13:30:00 13:30:[address] [facility] 2017-12-12 2017-12-12 Out[facility] 14 [id number] Common 13:22:00 13:22:[address] [facility] 2017-11-20 2017-11-20 Out[facility] [id number] Common 10:30:00 10:30:[address] [facility] 2017-11-02 2017-11-02 Out[facility] [id number] Common 15:15:00 15:15:[address] [facility] Results Test Description Test Time Test Comments Results Result Comments Source POCT GLUCOSE (AUTOMATED) 2022-04-05 14:11:08 Test Item Value Reference Range Interpretation Comme nts POCT GLU (test code = 6739190828) 114 mg/dL 70-110 H Lab Interpretation (test code = 11972-3) [facility] 10:43:43 Test Item Value Reference Range Interpretation Comments POCT GLU (test code = 0959546782) 100 mg/dL 70-110 Lab Interpretation (test code = Normal 12890-9) [facility]2022-04-05 06:17:31 Test Item Value Reference Range Interpretation Comments POCT GLU (test code = 9470367827) 69 mg/dL 70-110 L Lab Interpretation (test code = Abnormal 96990-0) [facility] GLUCOSE (AUTOMATED)2022-04-05 03:25:11 Test Item Value Reference Range Interpretation Comments POCT GLU (test code = 0705878794) 79 mg/dL 70-110 Lab Interpretation (test code = Normal 76768-0) [facility] GLUCOSE (AUTOMATED)2022-04-04 22:24:08 Test Item Value Reference Range Interpretation Comments POCT GLU (test code = 9485478759) 113 mg/dL 70-110 H Lab Interpretation (test code = Abnormal 46427-2) [facility] GLUCOSE (AUTOMATED)2022-04-04 18:10:47 Test Item Value Reference Range Interpretation Comments POCT GLU (test code = 2041920046) 101 mg/dL 70-110 Lab Interpretation (test code = Normal 15936-6) [facility] GLUCOSE (AUTOMATED)2022-04-04 14:12:44 Test Item Value Reference Range Interpretation Comments POCT GLU (test code = 0569299164) 165 mg/dL 70-110 H Lab Interpretation (test code = Abnormal 02265-8) [facility] GLUCOSE (AUTOMATED)2022-04-04 10:28:25 Test Item Value Reference Range Interpretation Comments POCT GLU (test code = 4587119656) 133 mg/dL 70-110 H Lab Interpretation (test code = Abnormal 02953-7) [facility] GLUCOSE (AUTOMATED)2022-04-04 05:26:37 Test Item Value Reference Range Interpretation Comments POCT GLU (test code = 3381177833) 112 mg/dL 70-110 H Lab Interpretation (test code = Abnormal 97799-0) [facility] GLUCOSE (AUTOMATED)2022-04-04 02:08:29 Test Item Value Reference Range Interpretation Comments POCT GLU (test code = 3083872093) 191 mg/dL 70-110 H Lab Interpretation (test code = Abnormal 69401-5) [facility] GLUCOSE (AUTOMATED)2022-04-03 22:38:37 Test Item Value Reference Range Interpretation Comments POCT GLU (test code = 1473508049) 134 mg/dL 70-110 H Lab Interpretation (test code = Abnormal 73135-3) [facility] GLUCOSE (AUTOMATED)2022-04-03 18:00:04 Test Item Value Reference Range Interpretation Comments POCT GLU (test code = 7190560811) 176 mg/dL 70-110 H Lab Interpretation (test code = Abnormal 70202-4) [facility] GLUCOSE (AUTOMATED)2022-04-03 14:01:03 Test Item Value Reference Range Interpretation Comments POCT GLU (test code = 1481570760) 257 mg/dL 70-110 H Lab Interpretation (test code = Abnormal 13522-6) [facility] GLUCOSE (AUTOMATED)2022-04-03 10:50:04 Test Item Value Reference Range Interpretation Comments POCT GLU (test code = 4444130636) 305 mg/dL 70-110 H Lab Interpretation (test code = Abnormal 87379-2) [facility] GLUCOSE (AUTOMATED)2022-04-03 05:41:06 Test Item Value Reference Range Interpretation Comments POCT GLU (test code = 8505110930) 299 mg/dL 70-110 H Lab Interpretation (test code = Abnormal 43548-4) [facility] GLUCOSE (AUTOMATED)2022-04-03 00:54:28 Test Item Value Reference Range Interpretation Comments POCT GLU (test code = 3440867679) 253 mg/dL 70-110 H Lab Interpretation (test code = Abnormal 83561-2) [facility] GLUCOSE (AUTOMATED)2022-04-02 20:50:58 Test Item Value Reference Range Interpretation Comments POCT GLU (test code = 9468872255) 258 mg/dL 70-110 H Lab Interpretation (test code = Abnormal 86732-8) [facility] GLUCOSE (AUTOMATED)2022-04-02 16:47:03 Test Item Value Reference Range Interpretation Comments POCT GLU (test code = 7401197154) 319 mg/dL 70-110 H Lab Interpretation (test code = Abnormal 21534-0) [facility] GLUCOSE (AUTOMATED)2022-04-02 12:41:27 Test Item Value Reference Range Interpretation Comments POCT GLU (test code = 7664251373) 197 mg/dL 70-110 H Lab Interpretation (test code = Abnormal 19558-7) [facility] GLUCOSE (AUTOMATED)2022-04-02 08:30:53 Test Item Value Reference Range Interpretation Comments POCT GLU (test code = 0653589699) 201 mg/dL 70-110 H Lab Interpretation (test code = Abnormal 68192-8) [facility] GLUCOSE (AUTOMATED)2022-04-02 04:59:59 Test Item Value Reference Range Interpretation Comments POCT GLU (test code = 2011617034) 264 mg/dL 70-110 H Lab Interpretation (test code = Abnormal 10581-8) [facility] GLUCOSE (AUTOMATED)2022-04-02 00:29:26 Test Item Value Reference Range Interpretation Comments POCT GLU (test code = 1051732402) 236 mg/dL 70-110 H Lab Interpretation (test code = Abnormal 59926-0) [facility] GLUCOSE (AUTOMATED)2022-04-01 21:19:50 Test Item Value Reference Range Interpretation Comments POCT GLU (test code = 7992673979) 223 mg/dL 70-110 H Lab Interpretation (test code = Abnormal 68667-5) [facility] METABOLIC PANEL (NA, K, CL, CO2, GLUCOSE, BUN, CREATININE, CA)2022-04-01 17:17:56 Test Item Value Reference Range Interpretation Comments NA (test code = 133 mmol/L 135-145 L 9446615343) K (test code = 4.6 mmol/L 3.5-5.0 0326440431) CL (test code = 103 mmol/L 98-108 6345931487) CO2 TOTAL (test code = 28 mmol/L 23-31 9542573114) AGAP (test code = 2-16 6217738464) BUN (test code = 26 mg/dL 7-23 H 7006656098) GLUCOSE (test code = 145 mg/dL 70-110 H 1567612240) CREATININE (test code = 0.93 mg/dL 0.50-1.04 0019588518) CALCIUM (test code = 7.7 mg/dL 8.6-10.6 L 3343695103) eGFR (test code = mL/min/1.73m2 6741114583) NISHA (test code = NISHA) Association of [...] tests). Lab Interpretation Abnormal (test code = 05687-7) [facility] GLUCOSE (AUTOMATED)2022-04-01 17:08:04 Test Item Value Reference Range Interpretation Comments POCT GLU (test code = 8429352346) 161 mg/dL 70-110 H Lab Interpretation (test code = Abnormal 71493-0) [facility] GLUCOSE (AUTOMATED)2022-04-01 14:56:34 Test Item Value Reference Range Interpretation Comments POCT GLU (test code = 8981403660) 186 mg/dL 70-110 H Lab Interpretation (test code = Abnormal 36390-4) [facility] GLUCOSE (AUTOMATED)2022-04-01 12:25:55 Test Item Value Reference Range Interpretation Comments POCT GLU (test code = 4469030404) 223 mg/dL 70-110 H Lab Interpretation (test code = Abnormal 45328-1) [facility] GLUCOSE (AUTOMATED)2022-04-01 09:06:12 Test Item Value Reference Range Interpretation Comments POCT GLU (test code = 5565284659) 154 mg/dL 70-110 H Lab Interpretation (test code = Abnormal 09514-1) [facility] GLUCOSE (AUTOMATED)2022-04-01 03:44:32 Test Item Value Reference Range Interpretation Comments POCT GLU (test code = 7981888903) 179 mg/dL 70-110 H Lab Interpretation (test code = Abnormal 07747-9) [facility] GLUCOSE (AUTOMATED)2022-04-01 01:24:24 Test Item Value Reference Range Interpretation Comments POCT GLU (test code = 2833763104) 70 mg/dL 70-110 Lab Interpretation (test code = Normal 54405-8) [facility] GLUCOSE (AUTOMATED)2022-04-01 01:01:31 Test Item Value Reference Range Interpretation Comments POCT GLU (test code = 6474363068) 46 mg/dL 70-110 LL Lab Interpretation (test code = Abnormal 26583-6) [facility] GLUCOSE (AUTOMATED)2022-03-31 21:01:35 Test Item Value Reference Range Interpretation Comments POCT GLU (test code = 8501844462) 95 mg/dL 70-110 Lab Interpretation (test code = Normal 38186-5) [facility] GLUCOSE (AUTOMATED)2022-03-31 17:01:49 Test Item Value Reference Range Interpretation Comments POCT GLU (test code = 5979013278) 66 mg/dL 70-110 L Lab Interpretation (test code = Abnormal 23012-9) [facility] 16:36:57 Test Item Value Reference Range Interpretation Comments MAGNESIUM (test code = 2086793927) 1.4 mg/dL 1.7-2.4 L Lab Interpretation (test code = Abnormal 37257-4) [facility]2022-[facility]-03 16:36:57 Test Item Value Reference Range Interpretation Comments PHOSPHORUS (test code = 2822663724) 3.5 mg/dL 2.5-5.0 Lab Interpretation (test code = Normal 30263-6) [facility] (NA, K, CL, CO2, GLUCOSE, BUN, CREATININE, CA)2022-03-31 16:36:56 Test Item Value Reference Range Interpretation Comments NA (test code = 139 mmol/L 135-145 3899737715) K (test code = 3.4 mmol/L 3.5-5.0 L 6649829563) CL (test code = 110 mmol/L 98-108 H 7570780205) CO2 TOTAL (test code = 24 mmol/L 23-31 3811853300) AGAP (test code = 2-16 8005664308) BUN (test code = 16 mg/dL 7-23 7990869456) GLUCOSE (test code = 61 mg/dL 70-110 L 5423475235) CREATININE (test code = 0.66 mg/dL 0.50-1.04 1943589462) CALCIUM (test code = 6.9 mg/dL 8.6-10.6 L 1862968098) eGFR (test code = mL/min/1.73m2 4144343246) NISHA (test code = NISHA) Association of [...] tests). Lab Interpretation Abnormal (test code = 80519-1) [facility]2022-03-31 13:11:45 Test Item Value Reference Range Interpretation Comments POCT GLU (test code = 4147291806) 95 mg/dL 70-110 Lab Interpretation (test code = Normal 98377-9) [facility] WITH [id number] 11:31:03 Test Item Value Reference Range Interpretation Comments [...] as normal/abnormal . HGB (test code = 8.9 g/dL 11.6-15.0 L 718-7) HCT (test code = 25.9 % 35.7-45.2 L 4544-3) MCV (test code = 87.8 fL 80.6-95.5 787-2) MCH (test code = 30.2 pg 25.9-32.8 785-6) MCHC (test code = 34.4 g/dL 31.6-35.1 786-4) RDW-SD (test code = 39.2 fL 39.0-49.9 48865-7) RDW-CV (test code = 12.4 % 12.0-15.5 788-0) PLT (test code = See_Comment H [Automated 777-3) message] The sy stem which generated this result transmitted reference range : 166 - 358 10*3/ ?L. The reference r chelsie was not used to interpret this result as normal/abnormal . MPV (test code = 10.0 fL 9.5-12.9 20740-2) NRBC/100 WBC (test See_Comment [Automat ed code = 7988313623) message] The system which generated this result transmitted reference range : 0.0 - 10.0 /100 WBCs. The refer ence range was not u sed to interpret th is result as normal/abnormal . NRBC x10^3 (test code See_Comment [Auto mated = 1551622195) message] The s ystem which generated this result transmitted reference range : 10*3/?L. The reference range was not used to interpret this result as normal/abnormal . GRAN MAT (NEUT) % 69.2 % (test code = 770-8) IMM GRAN % (test code 0.30 % = 2622234521) LYMPH % (test code = 22.5 % 736-9) MONO % (test code = 5.3 % 5905-5) EOS % (test code = 2.2 % 713-8) BASO % (test code = 0.5 % 706-2) GRAN MAT x10^3(ANC) 8.67 10*3/uL 1.88-7.09 H (test code = 9770928624) IMM GRAN x10^3 (test 0.04 10*3/uL 0.00-0.06 code = 0625675968) LYMPH x10^3 (test code 2.82 10*3/uL 1.32-3.29 = 731-0) MONO x10^3 (test code 0.67 10*3/uL 0.33-0.92 = 742-7) EOS x10^3 (test code = 0.27 10*3/uL 0.03-0.39 711-2) BASO x10^3 (test code 0.06 10*3/uL 0.01-0.07 = 704-7) Lab Interpretation Abnormal (test code = 43310-3) [facility] GLUCOSE (AUTOMATED)2022-03-31 09:05:17 Test Item Value Reference Range Interpretation Comments POCT GLU (test code = 0109461467) 132 mg/dL 70-110 H Lab Interpretation (test code = Abnormal 67396-6) [facility] GLUCOSE (AUTOMATED)2022-03-31 06:01:00 Test Item Value Reference Range Interpretation Comments POCT GLU (test code = 9219546307) 108 mg/dL 70-110 Lab Interpretation (test code = Normal 77507-5) [facility] GLUCOSE (AUTOMATED)2022-03-31 05:40:03 Test Item Value Reference Range Interpretation Comments POCT GLU (test code = 9309249231) 52 mg/dL 70-110 L Lab Interpretation (test code = Abnormal 91541-6) [facility] GLUCOSE (AUTOMATED)2022-03-31 05:07:45 Test Item Value Reference Range Interpretation Comments POCT GLU (test code = 0094346337) 52 mg/dL 70-110 L Lab Interpretation (test code = Abnormal 01208-1) [facility] GLUCOSE (AUTOMATED)2022-03-31 01:01:03 Test Item Value Reference Range Interpretation Comments POCT GLU (test code = 0437412330) 92 mg/dL 70-110 Lab Interpretation (test code = Normal 74172-9) [facility] GLUCOSE (AUTOMATED)2022-03-30 21:18:18 Test Item Value Reference Range Interpretation Comments POCT GLU (test code = 3087847693) 121 mg/dL 70-110 H Lab Interpretation (test code = Abnormal 67221-7) [facility] GLUCOSE (AUTOMATED)2022-03-30 21:18:18 Test Item Value Reference Range Interpretation Comments POCT GLU (test code = 2488035057) 121 mg/dL 70-110 H Lab Interpretation (test code = Abnormal 32180-5) [facility] GLUCOSE (AUTOMATED)2022-03-30 16:30:55 Test Item Value Reference Range Interpretation Comments POCT GLU (test code = 3307368296) 233 mg/dL 70-110 H Lab Interpretation (test code = Abnormal 14880-3) [facility] GLUCOSE (AUTOMATED)2022-03-30 16:30:55 Test Item Value Reference Range Interpretation Comments POCT GLU (test code = 7479269779) 233 mg/dL 70-110 H Lab Interpretation (test code = Abnormal 98726-0) [facility] GLUCOSE (AUTOMATED)2022-03-30 12:53:10 Test Item Value Reference Range Interpretation Comments POCT GLU (test code = 1714459205) 249 mg/dL 70-110 H Lab Interpretation (test code = Abnormal 76871-3) [facility] GLUCOSE (AUTOMATED)2022-03-30 12:53:10 Test Item Value Reference Range Interpretation Comments POCT GLU (test code = 6620673099) 249 mg/dL 70-110 H Lab Interpretation (test code = Abnormal 42468-7) [facility] GLUCOSE (AUTOMATED)2022-03-30 09:07:14 Test Item Value Reference Range Interpretation Comments POCT GLU (test code = 221 mg/dL 70-110 H Notifi ed Provider [id number]) Lab Interpretation (test Abnormal code = 59480-0) [facility] GLUCOSE (AUTOMATED)2022-03-30 09:07:14 Test Item Value Reference Range Interpretation Comments POCT GLU (test code = 221 mg/dL 70-110 H Notifi ed Provider [id number]) Lab Interpretation (test Abnormal code = 11191-7) [facility] GLUCOSE (AUTOMATED)2022-03-30 04:50:50 Test Item Value Reference Range Interpretation Comments POCT GLU (test code = 251 mg/dL 70-110 H Notifi ed Provider [id number]) Lab Interpretation (test Abnormal code = 79414-8) [facility] GLUCOSE (AUTOMATED)2022-03-30 04:50:50 Test Item Value Reference Range Interpretation Comments POCT GLU (test code = 251 mg/dL 70-110 H Notifi ed Provider [id number]) Lab Interpretation (test Abnormal code = 67521-0) [facility] GLUCOSE (AUTOMATED)2022-03-30 01:00:14 Test Item Value Reference Range Interpretation Comments POCT GLU (test code = 242 mg/dL 70-110 H Notifi ed Provider [id number]) Lab Interpretation (test Abnormal code = 52376-9) [facility] GLUCOSE (AUTOMATED)2022-03-30 01:00:14 Test Item Value Reference Range Interpretation Comments POCT GLU (test code = 242 mg/dL 70-110 H Notifi ed Provider [id number]) Lab Interpretation (test Abnormal code = 51067-4) [facility]GLU[facility]CA2+2022-03-30 00:04:32 Test Item Value Reference Range Interpretation Comments PH (test code = 2) 7.35-7.45 PCO2 (test code = See_Comment L [Automate d message] 6518667694) The system [employer] generated this result transmit anthony reference range : 35 - 45 mmHg. The reference range was not used to interpret this result as normal/abnormal . PO2 (test code = See_Comment H [Automated message] 1490128546) The system [employer] generated this result transmit anthony reference range : 80 - 100 mmHg. The reference range was not used to interpret this result as normal/abnormal . HCO3 (test code = See_Comment [Automate d message] 3216602420) The system [employer] generated this result transmit anthony reference range : 22 - 26 mEq/L. The reference range was not used to interpret this result as normal/abnormal . BE (test code = See_Comment [Automated message] 6708827552) The system [employer] generated this result transmit anthony reference range : -3.0 - 3.0 mEq/ L. The reference r chelsie was not used to interpret this result as normal/abnormal . THB (test code = 11.1 g/dL 12.0-16.0 L 4920561831) %O2HB (test code = 98.6 % 94.0-99.0 6038244614) %COHB ART (test code = 0.3 % 0.0-1.5 9275168221) %METHB ART (test code = 0.3 % 0.4-1.5 L 3064437755) VOL%O2 ART (test code = 16.0 % 15.0-23.0 QUES 7898707188) NA (test code = 136 mmol/L 135-145 3200947841) K+ (test code = 4.0 mmol/L 3.5-5.0 4159488075) AC CA IONZ (test code = 4.50 mg/dL 4.50-5.30 9144524907) GLUCOSE (test code = 154 mg/dL 70-110 H 2767673436) Lab Interpretation Abnormal (test code = 11637-6) [facility]+COOX+NA+K+GLU+CA2+2022-03-30 00:04:32 Test Item Value Reference Range Interpretation Comments PH (test code = 2) 7.35-7.45 PCO2 (test code = See_Comment L [Automate d message] 9603181214) The system [employer] generated this result transmit anthony reference range : 35 - 45 mmHg. The reference range was not used to interpret this result as normal/abnormal . PO2 (test code = See_Comment H [Automated message] 2809176327) The system [employer] generated this result transmit anthony reference range : 80 - 100 mmHg. The reference range was not used to interpret this result as normal/abnormal . HCO3 (test code = See_Comment [Automate d message] 6904144902) The system [employer] generated this result transmit anthony reference range : 22 - 26 mEq/L. The reference range was not used to interpret this result as normal/abnormal . BE (test code = See_Comment [Automated message] 6634064741) The system [employer] generated this result transmit anthony reference range : -3.0 - 3.0 mEq/ L. The reference r chelsie was not used to interpret this result as normal/abnormal . THB (test code = 11.1 g/dL 12.0-16.0 L 5503331458) %O2HB (test code = 98.6 % 94.0-99.0 0709552918) %COHB ART (test code = 0.3 % 0.0-1.5 8802736594) %METHB ART (test code = 0.3 % 0.4-1.5 L 2706323470) VOL%O2 ART (test code = 16.0 % 15.0-23.0 QUES 1682894668) NA (test code = 136 mmol/L 135-145 0235833099) K+ (test code = 4.0 mmol/L 3.5-5.0 5552817123) AC CA IONZ (test code = 4.50 mg/dL 4.50-5.30 5056500443) GLUCOSE (test code = 154 mg/dL 70-110 H 6103724910) Lab Interpretation Abnormal (test code = 80504-1) [facility] GLUCOSE (AUTOMATED)2022-03-29 21:50:44 Test Item Value Reference Range Interpretation Comments POCT GLU (test code = 2505122434) 231 mg/dL 70-110 H Lab Interpretation (test code = Abnormal 70012-3) [facility] GLUCOSE (AUTOMATED)2022-03-29 21:50:44 Test Item Value Reference Range Interpretation Comments POCT GLU (test code = 0549849247) 231 mg/dL 70-110 H Lab Interpretation (test code = Abnormal 72289-0) [facility] WITH [id number] 18:27:53 Test Item Value Reference Range Interpretation [...] (test code = 38.5 fL 39.0-49.9 L 95765-3) RDW-CV (test code = 12.0 % 12.0-15.5 788-0) PLT (test code = See_Comment H [Automated 777-3) message] The sy stem which generated this result transmitted reference range : 166 - 358 10*3/ ?L. The reference r chelsie was not used to interpret this result as normal/abnormal . MPV (test code = 9.7 fL 9.5-12.9 48015-8) NRBC/100 WBC (test See_Comment [Automat ed code = 6225455265) message] The system which generated this result transmitted reference range : 0.0 - 10.0 /100 WBCs. The refer ence range was not u sed to interpret th is result as normal/abnormal . NRBC x10^3 (test code See_Comment [Auto mated = 1387847350) message] The s ystem which generated this result transmitted reference range : 10*3/?L. The reference range was not used to interpret this result as normal/abnormal . GRAN MAT (NEUT) % 70.7 % (test code = 770-8) IMM GRAN % (test code 0.30 % = [id number]) LYMPH % (test code = 21.1 % 736-9) MONO % (test code = 4.9 % 5905-5) EOS % (test code = 2.6 % 713-8) BASO % (test code = 0.4 % 706-2) GRAN MAT x10^3(ANC) 6.92 10*3/uL 1.88-7.09 (test code = 9200653414) IMM GRAN x10^3 (test 0.03 10*3/uL 0.00-0.06 code = 5889311504) LYMPH x10^3 (test code 2.07 10*3/uL 1.32-3.29 = 731-0) MONO x10^3 (test code 0.48 10*3/uL 0.33-0.92 = 742-7) EOS x10^3 (test code = 0.25 10*3/uL 0.03-0.39 711-2) BASO x10^3 (test code 0.04 10*3/uL 0.01-0.07 = 704-7) Lab Interpretation Abnormal (test code = 97752-2) [facility] WITH [id number] 18:27:53 Test Item Value Reference Range Interpretation Comments WBC (test code = See_Comment [Automated 2090-2) message] The sy stem which generated this result transmitted reference range : 4.30 - 11.10 10*3/?L. The reference range was not used to interpret this result as normal/abnormal . RBC (test code = See_Comment L [Automated 656-8) message] The sy stem which generated this [...] (test code = 38.5 fL 39.0-49.9 L 74919-0) RDW-CV (test code = 12.0 % 12.0-15.5 788-0) PLT (test code = See_Comment H [Automated 777-3) message] The sy stem which generated this result transmitted reference range : 166 - 358 10*3/ ?L. The reference r chelsie was not used to interpret this result as normal/abnormal . MPV (test code = 9.7 fL 9.5-12.9 18168-2) NRBC/100 WBC (test See_Comment [Automat ed code = 5223637059) message] The system which generated this result transmitted reference range : 0.0 - 10.0 /100 WBCs. The refer ence range was not u sed to interpret th is result as normal/abnormal . NRBC x10^3 (test code See_Comment [Auto mated = 2827823941) message] The s ystem which generated this result transmitted reference range : 10*3/?L. The reference range was not used to interpret this result as normal/abnormal . GRAN MAT (NEUT) % 70.7 % (test code = 770-8) IMM GRAN % (test code 0.30 % = 4073642979) LYMPH % (test code = 21.1 % 736-9) MONO % (test code = 4.9 % 5905-5) EOS % (test code = 2.6 % 713-8) BASO % (test code = 0.4 % 706-2) GRAN MAT x10^3(ANC) 6.92 10*3/uL 1.88-7.09 (test code = 9562838107) IMM GRAN x10^3 (test 0.03 10*3/uL 0.00-0.06 code = 8972795086) LYMPH x10^3 (test code 2.07 10*3/uL 1.32-3.29 = 731-0) MONO x10^3 (test code 0.48 10*3/uL 0.33-0.92 = 742-7) EOS x10^3 (test code = 0.25 10*3/uL 0.03-0.39 711-2) BASO x10^3 (test code 0.04 10*3/uL 0.01-0.07 = 704-7) Lab Interpretation Abnormal (test code = 71668-7) [facility] WITH [id number] 18:27:53 Test Item Value Reference Range Interpretation [...] (test code = 38.5 fL 39.0-49.9 L 18365-8) RDW-CV (test code = 12.0 % 12.0-15.5 788-0) PLT (test code = See_Comment H [Automated 777-3) message] The sy stem which generated this result transmitted reference range : 166 - 358 10*3/ ?L. The reference r chelsie was not used to interpret this result as normal/abnormal . MPV (test code = 9.7 fL 9.5-12.9 15442-3) NRBC/100 WBC (test See_Comment [Automat ed code = 7639894496) message] The system which generated this result transmitted reference range : 0.0 - 10.0 /100 WBCs. The refer ence range was not u sed to interpret th is result as normal/abnormal . NRBC x10^3 (test code See_Comment [Auto mated = 2059408281) message] The s ystem which generated this result transmitted reference range : 10*3/?L. The reference range was not used to interpret this result as normal/abnormal . GRAN MAT (NEUT) % 70.7 % (test code = 770-8) IMM GRAN % (test code 0.30 % = 8380573786) LYMPH % (test code = 21.1 % 736-9) MONO % (test code = 4.9 % 5905-5) EOS % (test code = 2.6 % 713-8) BASO % (test code = 0.4 % 706-2) GRAN MAT x10^3(ANC) 6.92 10*3/uL 1.88-7.09 (test code = 1702987508) IMM GRAN x10^3 (test 0.03 10*3/uL 0.00-0.06 code = 6746746719) LYMPH x10^3 (test code 2.07 10*3/uL 1.32-3.29 = 731-0) MONO x10^3 (test code 0.48 10*3/uL 0.33-0.92 = 742-7) EOS x10^3 (test code = 0.25 10*3/uL 0.03-0.39 711-2) BASO x10^3 (test code 0.04 10*3/uL 0.01-0.07 = 704-7) Lab Interpretation Abnormal (test code = 39065-6) [facility] [id number] 16:47:06 Test Item Value Reference Range Interpretation Comments ABO & RH (test code O POSITIVE Performe d at [facility] = 20) Laboratory [facility] Blood Bank3 [facility] [address]Fayb Free: [phone] A No. [id number] IAT (test code = Negative Performed a t [facility] 1185) Laboratory [facility] Blood Bank3 [facility] s [address]Eprt Free: [phone] A No. [id number] [facility] - [id number] 16:47:06 Test Item Value Reference Range Interpretation Comments ABO & RH (test code O POSITIVE Performe d at [facility] = 20) Laboratory [facility] Blood [address] [address]Injq Free: [phone] A No. [id number] IAT (test code = Negative Performed a t [facility] 1185) Laboratory [facility] Blood [address] [address]Tvym Free: [phone] A No. [id number] [facility] and Screen - [id number] 16:47:06 Test Item Value Reference Range Interpretation Comments ABO & RH (test code O POSITIVE Performe d at [facility] = 20) Laboratory [facility] Blood [address] [address]Gfjk Free: [phone] A No. [id number] IAT (test code = Negative Performed a t [facility] 1185) Laboratory [facility] Blood [address] s [address]Aatd Free: [phone] A No. [id number] [facility] GLUCOSE (AUTOMATED)2022-03-29 13:09:38 Test Item Value Reference Range Interpretation Comments POCT GLU (test code = 7049164401) 131 mg/dL 70-110 H Lab Interpretation (test code = Abnormal 19580-1) [facility] GLUCOSE (AUTOMATED)2022-03-29 13:09:38 Test Item Value Reference Range Interpretation Comments POCT GLU (test code = 5352820997) 131 mg/dL 70-110 H Lab Interpretation (test code = Abnormal 14007-8) [facility] GLUCOSE (AUTOMATED)2022-03-29 13:09:38 Test Item Value Reference Range Interpretation Comments POCT GLU (test code = 0203336229) 131 mg/dL 70-110 H Lab Interpretation (test code = Abnormal 98717-1) [facility] GLUCOSE (AUTOMATED)2022-03-29 09:20:58 Test Item Value Reference Range Interpretation Comments POCT GLU (test code = 133 mg/dL 70-110 H Notifi ed Provider [id number]) Lab Interpretation (test Abnormal code = 87529-7) [facility] GLUCOSE (AUTOMATED)2022-03-29 09:20:58 Test Item Value Reference Range Interpretation Comments POCT GLU (test code = 133 mg/dL 70-110 H Notifi ed Provider [id number]) Lab Interpretation (test Abnormal code = 67410-8) [facility] GLUCOSE (AUTOMATED)2022-03-29 09:20:58 Test Item Value Reference Range Interpretation Comments POCT GLU (test code = 133 mg/dL 70-110 H Notifi ed Provider [id number]) Lab Interpretation (test Abnormal code = 62698-9) [facility] GLUCOSE (AUTOMATED)2022-03-29 05:02:17 Test Item Value Reference Range Interpretation Comments POCT GLU (test code = 212 mg/dL 70-110 H Notifi ed Provider [id number]) Lab Interpretation (test Abnormal code = 01099-8) [facility] GLUCOSE (AUTOMATED)2022-03-29 05:02:17 Test Item Value Reference Range Interpretation Comments POCT GLU (test code = 212 mg/dL 70-110 H Notifi ed Provider [id number]) Lab Interpretation (test Abnormal code = 56015-6) [facility] GLUCOSE (AUTOMATED)2022-03-29 05:02:17 Test Item Value Reference Range Interpretation Comments POCT GLU (test code = 212 mg/dL 70-110 H Notifi ed Provider [id number]) Lab Interpretation (test Abnormal code = 76862-4) [facility] GLUCOSE (AUTOMATED)2022-03-29 01:28:43 Test Item Value Reference Range Interpretation Comments POCT GLU (test code = 6241228292) 192 mg/dL 70-110 H Lab Interpretation (test code = Abnormal 83996-3) [facility] GLUCOSE (AUTOMATED)2022-03-29 01:28:43 Test Item Value Reference Range Interpretation Comments POCT GLU (test code = 1211034959) 192 mg/dL 70-110 H Lab Interpretation (test code = Abnormal 91002-0) [facility] GLUCOSE (AUTOMATED)2022-03-29 01:28:43 Test Item Value Reference Range Interpretation Comments POCT GLU (test code = 9520828818) 192 mg/dL 70-110 H Lab Interpretation (test code = Abnormal 90283-4) [facility] GLUCOSE (AUTOMATED)2022-03-28 21:49:45 Test Item Value Reference Range Interpretation Comments POCT GLU (test code = 1490108223) 138 mg/dL 70-110 H Lab Interpretation (test code = Abnormal 44582-5) [facility] GLUCOSE (AUTOMATED)2022-03-28 21:49:45 Test Item Value Reference Range Interpretation Comments POCT GLU (test code = 6310470121) 138 mg/dL 70-110 H Lab Interpretation (test code = Abnormal 11062-5) [facility] GLUCOSE (AUTOMATED)2022-03-28 21:49:45 Test Item Value Reference Range Interpretation Comments POCT GLU (test code = 8856314416) 138 mg/dL 70-110 H Lab Interpretation (test code = Abnormal 07435-8) [facility] GLUCOSE (AUTOMATED)2022-03-28 21:49:45 Test Item Value Reference Range Interpretation Comments POCT GLU (test code = 3666762379) 138 mg/dL 70-110 H Lab Interpretation (test code = Abnormal 47709-3) [facility] GLUCOSE (AUTOMATED)2022-03-28 13:04:50 Test Item Value Reference Range Interpretation Comments POCT GLU (test code = 2080290491) 142 mg/dL 70-110 H Lab Interpretation (test code = Abnormal 49530-7) [facility] GLUCOSE (AUTOMATED)2022-03-28 13:04:50 Test Item Value Reference Range Interpretation Comments POCT GLU (test code = 1118782188) 142 mg/dL 70-110 H Lab Interpretation (test code = Abnormal 03165-3) [facility] GLUCOSE (AUTOMATED)2022-03-28 13:04:50 Test Item Value Reference Range Interpretation Comments POCT GLU (test code = 8307472146) 142 mg/dL 70-110 H Lab Interpretation (test code = Abnormal 31952-2) [facility] GLUCOSE (AUTOMATED)2022-03-28 13:04:50 Test Item Value Reference Range Interpretation Comments POCT GLU (test code = 8393015434) 142 mg/dL 70-110 H Lab Interpretation (test code = Abnormal 99337-1) [facility] GLUCOSE (AUTOMATED)2022-03-28 13:04:50 Test Item Value Reference Range Interpretation Comments POCT GLU (test code = 3820233575) 142 mg/dL 70-110 H Lab Interpretation (test code = Abnormal 93624-1) [facility] GLUCOSE (AUTOMATED)2022-03-28 09:24:11 Test Item Value Reference Range Interpretation Comments POCT GLU (test code = 118 mg/dL 70-110 H Notifi ed Provider [id number]) Lab Interpretation (test Abnormal code = 51590-3) [facility] GLUCOSE (AUTOMATED)2022-03-28 09:24:11 Test Item Value Reference Range Interpretation Comments POCT GLU (test code = 118 mg/dL 70-110 H Notifi ed Provider [id number]) Lab Interpretation (test Abnormal code = 86889-4) [facility] GLUCOSE (AUTOMATED)2022-03-28 09:24:11 Test Item Value Reference Range Interpretation Comments POCT GLU (test code = 118 mg/dL 70-110 H Notifi ed Provider [id number]) Lab Interpretation (test Abnormal code = 02063-6) [facility] GLUCOSE (AUTOMATED)2022-03-28 09:24:11 Test Item Value Reference Range Interpretation Comments POCT GLU (test code = 118 mg/dL 70-110 H Notifi ed Provider [id number]) Lab Interpretation (test Abnormal code = 54667-9) [facility] GLUCOSE (AUTOMATED)2022-03-28 05:23:36 Test Item Value Reference Range Interpretation Comments POCT GLU (test code = 1945312342) 95 mg/dL 70-110 Lab Interpretation (test code = Normal 89695-0) [facility] GLUCOSE (AUTOMATED)2022-03-28 05:23:36 Test Item Value Reference Range Interpretation Comments POCT GLU (test code = 0521091160) 95 mg/dL 70-110 Lab Interpretation (test code = Normal 57383-2) [facility] GLUCOSE (AUTOMATED)2022-03-28 05:23:36 Test Item Value Reference Range Interpretation Comments POCT GLU (test code = 6179774711) 95 mg/dL 70-110 Lab Interpretation (test code = Normal 43696-8) [facility] GLUCOSE (AUTOMATED)2022-03-28 05:23:36 Test Item Value Reference Range Interpretation Comments POCT GLU (test code = 6080401933) 95 mg/dL 70-110 Lab Interpretation (test code = Normal 02506-8) [facility] GLUCOSE (AUTOMATED)2022-03-28 04:46:42 Test Item Value Reference Range Interpretation Comments POCT GLU (test code = 68 mg/dL 70-110 L Notifi ed Provider [id number]) Lab Interpretation (test Abnormal code = 44696-8) [facility] GLUCOSE (AUTOMATED)2022-03-28 04:46:42 Test Item Value Reference Range Interpretation Comments POCT GLU (test code = 68 mg/dL 70-110 L Notifi ed Provider [id number]) Lab Interpretation (test Abnormal code = 58114-7) [facility] GLUCOSE (AUTOMATED)2022-03-28 04:46:42 Test Item Value Reference Range Interpretation Comments POCT GLU (test code = 68 mg/dL 70-110 L Notifi ed Provider [id number]) Lab Interpretation (test Abnormal code = 60079-8) [facility] GLUCOSE (AUTOMATED)2022-03-28 04:46:42 Test Item Value Reference Range Interpretation Comments POCT GLU (test code = 68 mg/dL 70-110 L Notifi ed Provider [id number]) Lab Interpretation (test Abnormal code = 77445-7) [facility] GLUCOSE (AUTOMATED)2022-03-28 01:30:55 Test Item Value Reference Range Interpretation Comments POCT GLU (test code = 120 mg/dL 70-110 H Notifi ed Provider [id number]) Lab Interpretation (test Abnormal code = 94643-5) [facility] GLUCOSE (AUTOMATED)2022-03-28 01:30:55 Test Item Value Reference Range Interpretation Comments POCT GLU (test code = 120 mg/dL 70-110 H Notifi ed Provider [id number]) Lab Interpretation (test Abnormal code = 49839-9) [facility] GLUCOSE (AUTOMATED)2022-03-28 01:30:55 Test Item Value Reference Range Interpretation Comments POCT GLU (test code = 120 mg/dL 70-110 H Notifi ed Provider [id number]) Lab Interpretation (test Abnormal code = 39192-1) [facility] 01:30:55 Test Item Value Reference Range Interpretation Comments POCT GLU (test code = 120 mg/dL 70-110 H Notifi ed Provider [id number]) Lab Interpretation (test Abnormal code = 09097-6) [facility]22-[facility]-27 20:44:54 Test Item Value Reference Range Interpretation Comments POCT GLU (test code = 3808936745) 211 mg/dL 70-110 H Lab Interpretation (test code = Abnormal 36362-4) [facility] GLUCOSE (AUTOMATED)2022-03-27 20:44:54 Test Item Value Reference Range Interpretation Comments POCT GLU (test code = 3447999590) 211 mg/dL 70-110 H Lab Interpretation (test code = Abnormal 58490-1) [facility]27 20:44:54 Test Item Value Reference Range Interpretation Comments POCT GLU (test code = 6099351654) 211 mg/dL 70-110 H Lab Interpretation (test code = Abnormal 97427-7) [facility] 20:44:54 Test Item Value Reference Range Interpretation Comments POCT GLU (test code = 5367391824) 211 mg/dL 70-110 H Lab Interpretation (test code = Abnormal 74183-9) [facility]27 17:36:50 Test Item Value Reference Range Interpretation Comments POCT GLU (test code = 9695081798) 251 mg/dL 70-110 H Lab Interpretation (test code = Abnormal 23740-8) [facility] 17:36:50 Test Item Value Reference Range Interpretation Comments POCT GLU (test code = 1979372970) 251 mg/dL 70-110 H Lab Interpretation (test code = Abnormal 56898-3) [facility] 17:36:50 Test Item Value Reference Range Interpretation Comments POCT GLU (test code = 8471819449) 251 mg/dL 70-110 H Lab Interpretation (test code = Abnormal 41527-2) [facility] 17:36:50 Test Item Value Reference Range Interpretation Comments POCT GLU (test code = 0648433682) 251 mg/dL 70-110 H Lab Interpretation (test code = Abnormal 11908-5) [facility] GLUCOSE (AUTOMATED)2022-03-27 12:36:13 Test Item Value Reference Range Interpretation Comments POCT GLU (test code = 1483366949) 230 mg/dL 70-110 H Lab Interpretation (test code = Abnormal 48977-6) [facility] GLUCOSE (AUTOMATED)2022-03-27 12:36:13 Test Item Value Reference Range Interpretation Comments POCT GLU (test code = 8269071764) 230 mg/dL 70-110 H Lab Interpretation (test code = Abnormal 07137-6) [facility] GLUCOSE (AUTOMATED)2022-03-27 12:36:13 Test Item Value Reference Range Interpretation Comments POCT GLU (test code = 2173353484) 230 mg/dL 70-110 H Lab Interpretation (test code = Abnormal 55203-5) [facility] GLUCOSE (AUTOMATED)2022-03-27 12:36:13 Test Item Value Reference Range Interpretation Comments POCT GLU (test code = 3662385990) 230 mg/dL 70-110 H Lab Interpretation (test code = Abnormal 11402-4) [facility] GLUCOSE (AUTOMATED)2022-03-27 09:18:37 Test Item Value Reference Range Interpretation Comments POCT GLU (test code = 2112209091) 256 mg/dL 70-110 H Lab Interpretation (test code = Abnormal 54095-8) [facility] GLUCOSE (AUTOMATED)2022-03-27 09:18:37 Test Item Value Reference Range Interpretation Comments POCT GLU (test code = 7864426831) 256 mg/dL 70-110 H Lab Interpretation (test code = Abnormal 34058-5) [facility] GLUCOSE (AUTOMATED)2022-03-27 09:18:37 Test Item Value Reference Range Interpretation Comments POCT GLU (test code = 3323222849) 256 mg/dL 70-110 H Lab Interpretation (test code = Abnormal 58036-3) [facility] GLUCOSE (AUTOMATED)2022-03-27 09:18:37 Test Item Value Reference Range Interpretation Comments POCT GLU (test code = 6752211114) 256 mg/dL 70-110 H Lab Interpretation (test code = Abnormal 01276-7) [facility] GLUCOSE (AUTOMATED)2022-03-27 05:12:31 Test Item Value Reference Range Interpretation Comments POCT GLU (test code = 2171888585) 219 mg/dL 70-110 H Lab Interpretation (test code = Abnormal 25984-4) [facility] GLUCOSE (AUTOMATED)2022-03-27 05:12:31 Test Item Value Reference Range Interpretation Comments POCT GLU (test code = 5055044573) 219 mg/dL 70-110 H Lab Interpretation (test code = Abnormal 84858-2) [facility] GLUCOSE (AUTOMATED)2022-03-27 05:12:31 Test Item Value Reference Range Interpretation Comments POCT GLU (test code = 0030999835) 219 mg/dL 70-110 H Lab Interpretation (test code = Abnormal 63150-3) [facility] GLUCOSE (AUTOMATED)2022-03-27 05:12:31 Test Item Value Reference Range Interpretation Comments POCT GLU (test code = 5845652757) 219 mg/dL 70-110 H Lab Interpretation (test code = Abnormal 89260-4) [facility] GLUCOSE (AUTOMATED)2022-03-27 01:06:19 Test Item Value Reference Range Interpretation Comments POCT GLU (test code = 4346305067) 119 mg/dL 70-110 H Lab Interpretation (test code = Abnormal 88139-8) [facility] GLUCOSE (AUTOMATED)2022-03-27 01:06:19 Test Item Value Reference Range Interpretation Comments POCT GLU (test code = 6629977221) 119 mg/dL 70-110 H Lab Interpretation (test code = Abnormal 57187-8) [facility] GLUCOSE (AUTOMATED)2022-03-27 01:06:19 Test Item Value Reference Range Interpretation Comments POCT GLU (test code = 0021011559) 119 mg/dL 70-110 H Lab Interpretation (test code = Abnormal 53893-7) [facility] 01:06:19 Test Item Value Reference Range Interpretation Comments POCT GLU (test code = 7055741734) 119 mg/dL 70-110 H Lab Interpretation (test code = Abnormal 74378-5) [facility] and Screen - ONCE [id number] 23:05:59 Test Item Value Reference Range Interpretation Comments ABO & RH (test code O POSITIVE Performe d at [facility] = 20) Laboratory [facility] Blood [address] [address]Zwna Free: [phone] A No. [id number] IAT (test code = Negative Performed a t [facility] 1185) Laboratory [facility] Blood [address] [address]Tyiw Free: [phone] A No. [id number] [facility] and Screen - ONCE [id number] 23:05:59 Test Item Value Reference Range Interpretation Comments ABO & RH (test code O POSITIVE Performe d at [facility] = 20) Laboratory [facility] Blood [address] s [address]Mxbd Free: [phone] A No. [id number] IAT (test code = Negative Performed a t [facility] 1185) Laboratory [facility] Blood [address] s [address]Toec Free: [phone] A No. [id number] [facility] and Screen - ONCE [id number] 23:05:59 Test Item Value Reference Range Interpretation Comments ABO & RH (test code O POSITIVE Performe d at [facility] = 20) Laboratory [facility] Blood [address] s [address]Lghy Free: [phone] A No. [id number] IAT (test code = Negative Performed a t [facility] 1185) Laboratory [facility] Blood [address] [place] [address] s [address]Kavt Free: [phone] A No. [id number] [facility] and Screen - ONCE [id number] 23:05:59 Test Item Value Reference Range Interpretation Comments ABO & RH (test code O POSITIVE Performe d at [facility] = 20) Laboratory [facility] Blood Bank3 [address] [facility] s [address]Puxh Free: [phone] A No. [id number] IAT (test code = Negative Performed a t [facility] 1185) Laboratory [facility] Blood Bank3 [address] [facility] s [address]Izsy Free: [phone] A No. [id number] [facility] and Screen - ONCE [id number] 23:05:59 Test Item Value Reference Range Interpretation Comments ABO & RH (test code O POSITIVE Performe d at [facility] = 20) Laboratory [facility] Blood Bank3 [address] [facility] s [address]Hqjl Free: [phone] A No. [id number] IAT (test code = Negative Performed a t [facility] 1185) Laboratory [facility] Blood Bank3 [address] [facility] s [address]Topi Free: [phone] A No. [id number] [facility] GLUCOSE (AUTOMATED)2022-03-26 21:43:29 Test Item Value Reference Range Interpretation Comments POCT GLU (test code = 5831270172) 85 mg/dL 70-110 Lab Interpretation (test code = Normal 13783-2) [facility] GLUCOSE (AUTOMATED)2022-03-26 21:43:29 Test Item Value Reference Range Interpretation Comments POCT GLU (test code = 3516825283) 85 mg/dL 70-110 Lab Interpretation (test code = Normal 55931-8) [facility] GLUCOSE (AUTOMATED)2022-03-26 21:43:29 Test Item Value Reference Range Interpretation Comments POCT GLU (test code = 1423489554) 85 mg/dL 70-110 Lab Interpretation (test code = Normal 07151-3) [facility] GLUCOSE (AUTOMATED)2022-03-26 21:43:29 Test Item Value Reference Range Interpretation Comments POCT GLU (test code = 4364745770) 85 mg/dL 70-110 Lab Interpretation (test code = Normal 20322-3) [facility]2022-[facility]-26 17:35:24 Test Item Value Reference Range Interpretation Comments POCT GLU (test code = 8806401671) 165 mg/dL 70-110 H Lab Interpretation (test code = Abnormal 17595-0) [facility]2022-03-26 17:35:24 Test Item Value Reference Range Interpretation Comments POCT GLU (test code = 2147050836) 165 mg/dL 70-110 H Lab Interpretation (test code = Abnormal 84364-2) [facility] GLUCOSE (AUTOMATED)2022-03-26 17:35:24 Test Item Value Reference Range Interpretation Comments POCT GLU (test code = 5730475667) 165 mg/dL 70-110 H Lab Interpretation (test code = Abnormal 63033-1) [facility] GLUCOSE (AUTOMATED)2022-03-26 17:35:24 Test Item Value Reference Range Interpretation Comments POCT GLU (test code = 8063790662) 165 mg/dL 70-110 H Lab Interpretation (test code = Abnormal 52032-9) [facility] GLUCOSE (AUTOMATED)2022-03-26 12:29:43 Test Item Value Reference Range Interpretation Comments POCT GLU (test code = 4251383776) 144 mg/dL 70-110 H Lab Interpretation (test code = Abnormal 46964-4) [facility] GLUCOSE (AUTOMATED)2022-03-26 12:29:43 Test Item Value Reference Range Interpretation Comments POCT GLU (test code = 7383653361) 144 mg/dL 70-110 H Lab Interpretation (test code = Abnormal 23735-3) [facility] 12:29:43 Test Item Value Reference Range Interpretation Comments POCT GLU (test code = 7806484395) 144 mg/dL 70-110 H Lab Interpretation (test code = Abnormal 11163-5) [facility] GLUCOSE (AUTOMATED)2022-03-26 12:29:43 Test Item Value Reference Range Interpretation Comments POCT GLU (test code = 1800223465) 144 mg/dL 70-110 H Lab Interpretation (test code = Abnormal 04546-2) [facility] GLUCOSE (AUTOMATED)2022-03-26 09:32:36 Test Item Value Reference Range Interpretation Comments POCT GLU (test code = 6260882015) 122 mg/dL 70-110 H Lab Interpretation (test code = Abnormal 39889-0) [facility] GLUCOSE (AUTOMATED)2022-03-26 09:32:36 Test Item Value Reference Range Interpretation Comments POCT GLU (test code = 5142401070) 122 mg/dL 70-110 H Lab Interpretation (test code = Abnormal 59444-9) [facility] GLUCOSE (AUTOMATED)2022-03-26 09:32:36 Test Item Value Reference Range Interpretation Comments POCT GLU (test code = 7731375672) 122 mg/dL 70-110 H Lab Interpretation (test code = Abnormal 34454-4) [facility] GLUCOSE (AUTOMATED)2022-03-26 09:32:36 Test Item Value Reference Range Interpretation Comments POCT GLU (test code = 1272937503) 122 mg/dL 70-110 H Lab Interpretation (test code = Abnormal 02292-7) [facility] GLUCOSE (AUTOMATED)2022-03-26 05:04:28 Test Item Value Reference Range Interpretation Comments POCT GLU (test code = 4263053933) 152 mg/dL 70-110 H Lab Interpretation (test code = Abnormal 21247-6) [facility] GLUCOSE (AUTOMATED)2022-03-26 05:04:28 Test Item Value Reference Range Interpretation Comments POCT GLU (test code = 6114422575) 152 mg/dL 70-110 H Lab Interpretation (test code = Abnormal 24771-8) [facility] GLUCOSE (AUTOMATED)2022-03-26 05:04:28 Test Item Value Reference Range Interpretation Comments POCT GLU (test code = 2633339898) 152 mg/dL 70-110 H Lab Interpretation (test code = Abnormal 13859-6) [facility] GLUCOSE (AUTOMATED)2022-03-26 05:04:28 Test Item Value Reference Range Interpretation Comments POCT GLU (test code = 6017074729) 152 mg/dL 70-110 H Lab Interpretation (test code = Abnormal 99379-6) [facility] 01:24:58 Test Item Value Reference Range Interpretation Comments POCT GLU (test code = 1095885027) 249 mg/dL 70-110 H Lab Interpretation (test code = Abnormal 42213-6) [facility] GLUCOSE (AUTOMATED)2022-03-26 01:24:58 Test Item Value Reference Range Interpretation Comments POCT GLU (test code = 7010655311) 249 mg/dL 70-110 H Lab Interpretation (test code = Abnormal 13769-6) [facility] GLUCOSE (AUTOMATED)2022-03-26 01:24:58 Test Item Value Reference Range Interpretation Comments POCT GLU (test code = 3180852455) 249 mg/dL 70-110 H Lab Interpretation (test code = Abnormal 12452-8) [facility] GLUCOSE (AUTOMATED)2022-03-26 01:24:58 Test Item Value Reference Range Interpretation Comments POCT GLU (test code = 2260887640) 249 mg/dL 70-110 H Lab Interpretation (test code = Abnormal 02055-2) [facility] GLUCOSE (AUTOMATED)2022-03-25 21:13:04 Test Item Value Reference Range Interpretation Comments POCT GLU (test code = 4983401216) 155 mg/dL 70-110 H Lab Interpretation (test code = Abnormal 29062-8) [facility] GLUCOSE (AUTOMATED)2022-03-25 21:13:04 Test Item Value Reference Range Interpretation Comments POCT GLU (test code = 9784613691) 155 mg/dL 70-110 H Lab Interpretation (test code = Abnormal 75464-0) [facility] GLUCOSE (AUTOMATED)2022-03-25 21:13:04 Test Item Value Reference Range Interpretation Comments POCT GLU (test code = 9085129591) 155 mg/dL 70-110 H Lab Interpretation (test code = Abnormal 09794-1) [facility] GLUCOSE (AUTOMATED)2022-03-25 21:13:04 Test Item Value Reference Range Interpretation Comments POCT GLU (test code = 3279745020) 155 mg/dL 70-110 H Lab Interpretation (test code = Abnormal 65554-6) [facility] GLUCOSE (AUTOMATED)2022-03-25 18:05:28 Test Item Value Reference Range Interpretation Comments POCT GLU (test code = 7721359919) 182 mg/dL 70-110 H Lab Interpretation (test code = Abnormal 28619-9) [facility] 18:05:28 Test Item Value Reference Range Interpretation Comments POCT GLU (test code = 4992617823) 182 mg/dL 70-110 H Lab Interpretation (test code = Abnormal 69203-2) [facility] GLUCOSE (AUTOMATED)2022-03-25 18:05:28 Test Item Value Reference Range Interpretation Comments POCT GLU (test code = 6551073664) 182 mg/dL 70-110 H Lab Interpretation (test code = Abnormal 10214-8) [facility] GLUCOSE (AUTOMATED)2022-03-25 18:05:28 Test Item Value Reference Range Interpretation Comments POCT GLU (test code = 7363470924) 182 mg/dL 70-110 H Lab Interpretation (test code = Abnormal 71418-4) [facility] GLUCOSE (AUTOMATED)2022-03-25 14:27:58 Test Item Value Reference Range Interpretation Comments POCT GLU (test code = 191 mg/dL 70-110 H Notifi ed Provider [id number]) Lab Interpretation (test Abnormal code = 00563-6) [facility] GLUCOSE (AUTOMATED)2022-03-25 14:27:58 Test Item Value Reference Range Interpretation Comments POCT GLU (test code = 191 mg/dL 70-110 H Notifi ed Provider [id number]) Lab Interpretation (test Abnormal code = 19583-8) [facility] GLUCOSE (AUTOMATED)2022-03-25 14:27:58 Test Item Value Reference Range Interpretation Comments POCT GLU (test code = 191 mg/dL 70-110 H Notifi ed Provider [id number]) Lab Interpretation (test Abnormal code = 63911-7) [facility] GLUCOSE (AUTOMATED)2022-03-25 14:27:58 Test Item Value Reference Range Interpretation Comments POCT GLU (test code = 191 mg/dL 70-110 H Notifi ed Provider [id number]) Lab Interpretation (test Abnormal code = 01855-3) [facility] GLUCOSE (AUTOMATED)2022-03-25 09:04:51 Test Item Value Reference Range Interpretation Comments POCT GLU (test code = 8832257190) 157 mg/dL 70-110 H Lab Interpretation (test code = Abnormal 35096-5) [facility] 09:04:51 Test Item Value Reference Range Interpretation Comments POCT GLU (test code = 6581898955) 157 mg/dL 70-110 H Lab Interpretation (test code = Abnormal 34375-3) [facility] GLUCOSE (AUTOMATED)2022-03-25 09:04:51 Test Item Value Reference Range Interpretation Comments POCT GLU (test code = 9609740719) 157 mg/dL 70-110 H Lab Interpretation (test code = Abnormal 35313-7) [facility] GLUCOSE (AUTOMATED)2022-03-25 09:04:51 Test Item Value Reference Range Interpretation Comments POCT GLU (test code = 6686652854) 157 mg/dL 70-110 H Lab Interpretation (test code = Abnormal 34275-3) [facility] GLUCOSE (AUTOMATED)2022-03-25 04:17:28 Test Item Value Reference Range Interpretation Comments POCT GLU (test code = 1915920714) 179 mg/dL 70-110 H Lab Interpretation (test code = Abnormal 83446-5) [facility] GLUCOSE (AUTOMATED)2022-03-25 04:17:28 Test Item Value Reference Range Interpretation Comments POCT GLU (test code = 9142993420) 179 mg/dL 70-110 H Lab Interpretation (test code = Abnormal 89673-0) [facility] GLUCOSE (AUTOMATED)2022-03-25 04:17:28 Test Item Value Reference Range Interpretation Comments POCT GLU (test code = 2532212145) 179 mg/dL 70-110 H Lab Interpretation (test code = Abnormal 58353-8) [facility] 04:17:28 Test Item Value Reference Range Interpretation Comments POCT GLU (test code = 0845725261) 179 mg/dL 70-110 H Lab Interpretation (test code = Abnormal 76857-5) [facility] GLUCOSE (AUTOMATED)2022-03-25 01:34:30 Test Item Value Reference Range Interpretation Comments POCT GLU (test code = 0960200544) 227 mg/dL 70-110 H Lab Interpretation (test code = Abnormal 50089-1) [facility] 01:34:30 Test Item Value Reference Range Interpretation Comments POCT GLU (test code = 9968928221) 227 mg/dL 70-110 H Lab Interpretation (test code = Abnormal 76581-8) [facility] GLUCOSE (AUTOMATED)2022-03-25 01:34:30 Test Item Value Reference Range Interpretation Comments POCT GLU (test code = 1998472715) 227 mg/dL 70-110 H Lab Interpretation (test code = Abnormal 93339-6) [facility] GLUCOSE (AUTOMATED)2022-03-25 01:34:30 Test Item Value Reference Range Interpretation Comments POCT GLU (test code = 9452086686) 227 mg/dL 70-110 H Lab Interpretation (test code = Abnormal 46183-8) [facility] GLUCOSE (AUTOMATED)2022-03-25 01:34:25 Test Item Value Reference Range Interpretation Comments POCT GLU (test code = 8536653346) 174 mg/dL 70-110 H Lab Interpretation (test code = Abnormal 00587-5) [facility] GLUCOSE (AUTOMATED)2022-03-25 01:34:25 Test Item Value Reference Range Interpretation Comments POCT GLU (test code = 0978801859) 174 mg/dL 70-110 H Lab Interpretation (test code = Abnormal 54913-0) [facility] GLUCOSE (AUTOMATED)2022-03-25 01:34:25 Test Item Value Reference Range Interpretation Comments POCT GLU (test code = 1543127352) 174 mg/dL 70-110 H Lab Interpretation (test code = Abnormal 98370-9) [facility] GLUCOSE (AUTOMATED)2022-03-25 01:34:25 Test Item Value Reference Range Interpretation Comments POCT GLU (test code = 2629809784) 174 mg/dL 70-110 H Lab Interpretation (test code = Abnormal 42582-5) [facility] GLUCOSE (AUTOMATED)2022-03-24 23:02:31 Test Item Value Reference Range Interpretation Comments POCT GLU (test code = 2086042921) 112 mg/dL 70-110 H Lab Interpretation (test code = Abnormal 75068-3) [facility] GLUCOSE (AUTOMATED)2022-03-24 23:02:31 Test Item Value Reference Range Interpretation Comments POCT GLU (test code = 0131203433) 112 mg/dL 70-110 H Lab Interpretation (test code = Abnormal 96624-9) [facility] GLUCOSE (AUTOMATED)2022-03-24 23:02:31 Test Item Value Reference Range Interpretation Comments POCT GLU (test code = 3812795993) 112 mg/dL 70-110 H Lab Interpretation (test code = Abnormal 57198-5) [facility] GLUCOSE (AUTOMATED)2022-03-24 23:02:31 Test Item Value Reference Range Interpretation Comments POCT GLU (test code = 7297894011) 112 mg/dL 70-110 H Lab Interpretation (test code = Abnormal 34150-1) [facility] GLUCOSE (AUTOMATED)2022-03-24 22:01:20 Test Item Value Reference Range Interpretation Comments POCT GLU (test code = 6723113944) 67 mg/dL 70-110 L Lab Interpretation (test code = Abnormal 90410-0) [facility] GLUCOSE (AUTOMATED)2022-03-24 22:01:20 Test Item Value Reference Range Interpretation Comments POCT GLU (test code = 5835965194) 67 mg/dL 70-110 L Lab Interpretation (test code = Abnormal 33430-7) [facility] GLUCOSE (AUTOMATED)2022-03-24 22:01:20 Test Item Value Reference Range Interpretation Comments POCT GLU (test code = 0932567853) 67 mg/dL 70-110 L Lab Interpretation (test code = Abnormal 35752-0) [facility] GLUCOSE (AUTOMATED)2022-03-24 22:01:20 Test Item Value Reference Range Interpretation Comments POCT GLU (test code = 0969041099) 67 mg/dL 70-110 L Lab Interpretation (test code = Abnormal 79581-0) [facility] 21:29:38 Test Item Value Reference Range Interpretation Comments Height (test code = in 6642572123) Weight (test code = lbs 7035024701) Systolic BP (test code = mmHg 7073849695) Diastolic BP (test code mmHg = 8583178441) Heart Rate (test code = bpm 8623432336) BSA (test code = 1.56 m2 2351783746) LVOT diameter (test code 2.11 cm = 9042557759) LVOT area (test code = 3.50 cm2 1527147802) Ao root diam (test code 3.20 cm = 5066168240) Aortic root (test code = 3.2 cm 3506978441) Ao root annulus (test 3.2 cm code = 0233856385) LA size (test code = 2.8 cm 5768061203) MV Peak E Sweetie (test code 65.6 cm/s = 3523783569) MV Peak A Sweetie (test code 68.1 cm/s = 7716446748) E/A ratio (test code = ratio 1085696925) E wave decelartion time 0.13 s (test code = 8212831324) MR max PG (test code = 39.00 mm[Hg] 3296426728) MR max sweetie (test code = 312.40 cm/s 7050133703) Mr max sweetie (test code = 312.4 m/s 7967958828) MV Prop V (test code = 23.50 cm/s 5254643372) LAV(MOD-sp4) (test code 34.40 mL = 1660507343) Tapse (test code = 0.91 cm 1807613117) LVOT stroke volume (test 41.30 cm3 code = 0998791212) LVOT peak sweetie (test code 63.8 cm/s = 4611504693) LVOT mn grad (test code mmHg = 3421848926) AV LVOT peak gradient mmHg (test code = 3923695119) LVOT peak VTI (test code 11.8 cm = 6382632152) LV V1 mean (test code = 41.80 cm/s 3810252024) Ao peak sweetie (test code = 123.8 cm/s 5359738882) AV area peak sweetie (test 1.8 cm2 code = 3142093532) Ao max PG (test code = 6.10 mm[Hg] 2709905041) AV peak gradient (test mmHg code = 1859581083) LA Volume Index (BP) 20.7 mL/m2 (test code = 1126220635) LA volume (BP) (test 32.3 mL code = 6061326418) LAV(MOD-sp2) (test code 23.20 mL = 4037436715) LVIDD (test code = 4.90 cm 8042243572) Left Ventricular End 113.2 mL Diastolic Volume by Teichholz Method (test code = 2945072) IVS (test code = 0.91 cm 8661834073) Interventricular Septum 0.91 cm Diastolic Thickness by 2D (test code = 3517435) LVPWD (test code = 0.85 cm 7329078265) PW (test code = 0.85 cm 0.6-1.1 8710410599) EF(Teich) (test code = 44.80 % 0518248389) LVIDS (test code = 3.80 cm 0733522645) Left Ventricular End 62.5 mL Systolic Volume by Teichholz Method (test code = 5857248) FS (test code = 22 % 7761790409) EF - 2D (test code = 44.80 % 91885714) A4C EF (test code = 44.60 % 3519489841) EF(sp4-el) (test code = 44.90 % 1306879596) SV(MOD-sp4) (test code = 39.30 mL 8710275716) SV(sp4-el) (test code = 40.20 mL 7914076695) LV Diastolic Volume (BP) 81.7 mL (test code = 2777775844) A2C EF (test code = 30.20 % 5854219970) EF(MOD-bp) (test code = 35.70 % 2449105023) EF(sp2-el) (test code = 28.70 % 4674039475) LV Systolic Volume (BP) 52.6 mL (test code = 6258738841) SV(MOD-bp) (test code = 29.10 mL 7692621586) SV(MOD-sp2) (test code = 23.00 mL 2670305570) EF (test code = 4195498516) Left Ventricular Stroke 29.1 mL Volume by 2-D Biplane-MOD (test code = 9635656) LV Diastolic Volume 52.4 mL/m2 Index (BP) (test code = 1417926191) LV Systolic Volume Index 33.7 mL/m2 (BP) (test code = 0575312412) Radiology Study observation (narrative) (test code = 56380-2) ADD (test code = ADD) Addendum by [...] mL of Lumason ultrasound enhancing agent used. [facility] 21:29:38 Test Item Value Reference Range Interpretation Comments Height (test code = in 1611593236) Weight (test code = lbs 2329194561) Systolic BP (test code = mmHg 1346484006) Diastolic BP (test code mmHg = 5827033164) Heart Rate (test code = bpm 0026058098) BSA (test code = 1.56 m2 3759816286) LVOT diameter (test code 2.11 cm = 9131682073) LVOT area (test code = 3.50 cm2 0552605158) Ao root diam (test code 3.20 cm = 8615197457) Aortic root (test code = 3.2 cm 2350229264) Ao root annulus (test 3.2 cm code = 4530375636) LA size (test code = 2.8 cm 8563975788) MV Peak E Sweetie (test code 65.6 cm/s = 3613107907) MV Peak A Sweetie (test code 68.1 cm/s = 4246985781) E/A ratio (test code = ratio 2909633200) E wave decelartion time 0.13 s (test code = 9867944293) MR max PG (test code = 39.00 mm[Hg] 0249316455) MR max sweetie (test code = 312.40 cm/s 2409403483) Mr max sweetie (test code = 312.4 m/s 3935035662) MV Prop V (test code = 23.50 cm/s 9952685247) LAV(MOD-sp4) (test code 34.40 mL = 2110217315) Tapse (test code = 0.91 cm 4343758543) LVOT stroke volume (test 41.30 cm3 code = 3926986476) LVOT peak sweetie (test code 63.8 cm/s = 9023636215) LVOT mn grad (test code mmHg = 7382245428) AV LVOT peak gradient mmHg (test code = 9066545073) LVOT peak VTI (test code 11.8 cm = 5445554308) LV V1 mean (test code = 41.80 cm/s 8736118123) Ao peak sweetie (test code = 123.8 cm/s 0785859727) AV area peak sweetie (test 1.8 cm2 code = 8553941081) Ao max PG (test code = 6.10 mm[Hg] 2465730348) AV peak gradient (test mmHg code = 3663672336) LA Volume Index (BP) 20.7 mL/m2 (test code = 5750038730) LA volume (BP) (test 32.3 mL code = 4657861273) LAV(MOD-sp2) (test code 23.20 mL = 2746023623) LVIDD (test code = 4.90 cm 8489863881) Left Ventricular End 113.2 mL Diastolic Volume by Teichholz Method (test code = 8907337) IVS (test code = 0.91 cm 0623947048) Interventricular Septum 0.91 cm Diastolic Thickness by 2D (test code = 7378435) LVPWD (test code = 0.85 cm 0301423221) PW (test code = 0.85 cm 0.6-1.5 0984412560) EF(Teich) (test code = 44.80 % 5527174547) LVIDS (test code = 3.80 cm 1450929048) Left Ventricular End 62.5 mL Systolic Volume by Teichholz Method (test code = 0807734) FS (test code = 22 % 4356147499) EF - 2D (test code = 44.80 % 41947880) A4C EF (test code = 44.60 % 8511181206) EF(sp4-el) (test code = 44.90 % 9342797874) SV(MOD-sp4) (test code = 39.30 mL 7930061830) SV(sp4-el) (test code = 40.20 mL 1702358069) LV Diastolic Volume (BP) 81.7 mL (test code = 3792189724) A2C EF (test code = 30.20 % 3848034482) EF(MOD-bp) (test code = 35.70 % 8232080862) EF(sp2-el) (test code = 28.70 % 7077343425) LV Systolic Volume (BP) 52.6 mL (test code = 0313433561) SV(MOD-bp) (test code = 29.10 mL 2248347572) SV(MOD-sp2) (test code = 23.00 mL 2011203000) EF (test code = 8308478434) Left Ventricular Stroke 29.1 mL Volume by 2-D Biplane-MOD (test code = 4619007) LV Diastolic Volume 52.4 mL/m2 Index (BP) (test code = 1383178921) LV Systolic Volume Index 33.7 mL/m2 (BP) (test code = 0570976659) Radiology Study observation (narrative) (test code = 53410-9) ADD (test code = ADD) Addendum by [...] mL of Lumason ultrasound enhancing agent used. [facility] 21:29:38 Test Item Value Reference Range Interpretation Comments Height (test code = in 4897183955) Weight (test code = lbs 5772118162) Systolic BP (test code = mmHg 7268934675) Diastolic BP (test code mmHg = 5517145676) Heart Rate (test code = bpm 7143362006) BSA (test code = 1.56 m2 3810182824) LVOT diameter (test code 2.11 cm = 4567329548) LVOT area (test code = 3.50 cm2 6933907108) Ao root diam (test code 3.20 cm = 9823465041) Aortic root (test code = 3.2 cm 6291647788) Ao root annulus (test 3.2 cm code = 9525809631) LA size (test code = 2.8 cm 2367646690) MV Peak E Sweetie (test code 65.6 cm/s = 0039056871) MV Peak A Sweetie (test code 68.1 cm/s = 9790947211) E/A ratio (test code = ratio 9841132989) E wave decelartion time 0.13 s (test code = 7388381055) MR max PG (test code = 39.00 mm[Hg] 4195101068) MR max sweetie (test code = 312.40 cm/s 8756011096) Mr max sweetie (test code = 312.4 m/s 0934150571) MV Prop V (test code = 23.50 cm/s 4792563042) LAV(MOD-sp4) (test code 34.40 mL = 1492390803) Tapse (test code = 0.91 cm 9318953200) LVOT stroke volume (test 41.30 cm3 code = 8705895564) LVOT peak sweetie (test code 63.8 cm/s = 4565904134) LVOT mn grad (test code mmHg = 8800408763) AV LVOT peak gradient mmHg (test code = 1136775847) LVOT peak VTI (test code 11.8 cm = 5902547865) LV V1 mean (test code = 41.80 cm/s 2328855122) Ao peak sweetie (test code = 123.8 cm/s 1999382747) AV area peak sweetie (test 1.8 cm2 code = 0692941713) Ao max PG (test code = 6.10 mm[Hg] 0228351984) AV peak gradient (test mmHg code = 5385677355) LA Volume Index (BP) 20.7 mL/m2 (test code = 0808780148) LA volume (BP) (test 32.3 mL code = 4917175128) LAV(MOD-sp2) (test code 23.20 mL = 5950054004) LVIDD (test code = 4.90 cm 1616429262) Left Ventricular End 113.2 mL Diastolic Volume by Teichholz Method (test code = 2347593) IVS (test code = 0.91 cm 0323059267) Interventricular Septum 0.91 cm Diastolic Thickness by 2D (test code = 3510417) LVPWD (test code = 0.85 cm 0974479775) PW (test code = 0.85 cm 0.6-1.0 4433467278) EF(Teich) (test code = 44.80 % 4361777950) LVIDS (test code = 3.80 cm 4475432429) Left Ventricular End 62.5 mL Systolic Volume by Teichholz Method (test code = 1354483) FS (test code = 22 % 2460711666) EF - 2D (test code = 44.80 % 04448782) A4C EF (test code = 44.60 % 0759358305) EF(sp4-el) (test code = 44.90 % 9438240713) SV(MOD-sp4) (test code = 39.30 mL 4457717113) SV(sp4-el) (test code = 40.20 mL 5646762681) LV Diastolic Volume (BP) 81.7 mL (test code = 7042627268) A2C EF (test code = 30.20 % 9177898502) EF(MOD-bp) (test code = 35.70 % 8388563489) EF(sp2-el) (test code = 28.70 % 6368853609) LV Systolic Volume (BP) 52.6 mL (test code = 3428982509) SV(MOD-bp) (test code = 29.10 mL 6945780773) SV(MOD-sp2) (test code = 23.00 mL 3563462666) EF (test code = 4874837234) Left Ventricular Stroke 29.1 mL Volume by 2-D Biplane-MOD (test code = 7797507) LV Diastolic Volume 52.4 mL/m2 Index (BP) (test code = 8060897661) LV Systolic Volume Index 33.7 mL/m2 (BP) (test code = 2600403783) Radiology Study observation (narrative) (test code = 22476-5) ADD (test code = ADD) Addendum by [...] mL of Lumason ultrasound enhancing agent used. [facility] 21:29:38 Test Item Value Reference Range Interpretation Comments Height (test code = in 1366093474) Weight (test code = lbs 3080737914) Systolic BP (test code = mmHg 2441701786) Diastolic BP (test code mmHg = 6188840881) Heart Rate (test code = bpm 4997178882) BSA (test code = 1.56 m2 6850215098) LVOT diameter (test code 2.11 cm = 0024966993) LVOT area (test code = 3.50 cm2 7890388367) Ao root diam (test code 3.20 cm = 7319420542) Aortic root (test code = 3.2 cm 3310076632) Ao root annulus (test 3.2 cm code = 0563876718) LA size (test code = 2.8 cm 7542306088) MV Peak E Sweetie (test code 65.6 cm/s = 7313836154) MV Peak A Sweetie (test code 68.1 cm/s = 1707136167) E/A ratio (test code = ratio 8910490655) E wave decelartion time 0.13 s (test code = 3629647967) MR max PG (test code = 39.00 mm[Hg] 0915764745) MR max sweetie (test code = 312.40 cm/s 1297537442) Mr max sweetie (test code = 312.4 m/s 8399446243) MV Prop V (test code = 23.50 cm/s 7342912379) LAV(MOD-sp4) (test code 34.40 mL = 0236847372) Tapse (test code = 0.91 cm 5430381528) LVOT stroke volume (test 41.30 cm3 code = 9372040917) LVOT peak sweetie (test code 63.8 cm/s = 1564415024) LVOT mn grad (test code mmHg = 4067968569) AV LVOT peak gradient mmHg (test code = 5358829673) LVOT peak VTI (test code 11.8 cm = 5259820129) LV V1 mean (test code = 41.80 cm/s 7788679551) Ao peak sweetie (test code = 123.8 cm/s 0829438041) AV area peak sweetie (test 1.8 cm2 code = 2142606044) Ao max PG (test code = 6.10 mm[Hg] 5079526864) AV peak gradient (test mmHg code = 5849706047) LA Volume Index (BP) 20.7 mL/m2 (test code = 1051844340) LA volume (BP) (test 32.3 mL code = 4445729777) LAV(MOD-sp2) (test code 23.20 mL = 0274277572) LVIDD (test code = 4.90 cm 7058619475) Left Ventricular End 113.2 mL Diastolic Volume by Teichholz Method (test code = 9432575) IVS (test code = 0.91 cm 9953866923) Interventricular Septum 0.91 cm Diastolic Thickness by 2D (test code = 7959046) LVPWD (test code = 0.85 cm 5644999463) PW (test code = 0.85 cm 0.6-1.1 5909055262) EF(Teich) (test code = 44.80 % 5171656914) LVIDS (test code = 3.80 cm 3845647480) Left Ventricular End 62.5 mL Systolic Volume by Teichholz Method (test code = 7056450) FS (test code = 22 % 4818602458) EF - 2D (test code = 44.80 % 09058193) A4C EF (test code = 44.60 % 4586153698) EF(sp4-el) (test code = 44.90 % 3825224932) SV(MOD-sp4) (test code = 39.30 mL 8104157787) SV(sp4-el) (test code = 40.20 mL 3577671543) LV Diastolic Volume (BP) 81.7 mL (test code = 1248258692) A2C EF (test code = 30.20 % 8358778093) EF(MOD-bp) (test code = 35.70 % 2527239461) EF(sp2-el) (test code = 28.70 % 0481907965) LV Systolic Volume (BP) 52.6 mL (test code = 5102782390) SV(MOD-bp) (test code = 29.10 mL 9189955281) SV(MOD-sp2) (test code = 23.00 mL 6370869393) EF (test code = 8362858422) Left Ventricular Stroke 29.1 mL Volume by 2-D Biplane-MOD (test code = 1634299) LV Diastolic Volume 52.4 mL/m2 Index (BP) (test code = 5805524063) LV Systolic Volume Index 33.7 mL/m2 (BP) (test code = 4413573133) Radiology Study observation (narrative) (test code = 85764-3) ADD (test code = ADD) Addendum by [...] mL of Lumason ultrasound enhancing agent used. [facility] GLUCOSE (AUTOMATED)2022-03-24 17:10:50 Test Item Value Reference Range Interpretation Comments POCT GLU (test code = 1317049157) 254 mg/dL 70-110 H Lab Interpretation (test code = Abnormal 98021-7) [facility] GLUCOSE (AUTOMATED)2022-03-24 17:10:50 Test Item Value Reference Range Interpretation Comments POCT GLU (test code = 0928637224) 254 mg/dL 70-110 H Lab Interpretation (test code = Abnormal 66346-2) [facility] GLUCOSE (AUTOMATED)2022-03-24 17:10:50 Test Item Value Reference Range Interpretation Comments POCT GLU (test code = 2570465021) 254 mg/dL 70-110 H Lab Interpretation (test code = Abnormal 56127-0) [facility] GLUCOSE (AUTOMATED)2022-03-24 17:10:50 Test Item Value Reference Range Interpretation Comments POCT GLU (test code = 6795855213) 254 mg/dL 70-110 H Lab Interpretation (test code = Abnormal 34470-1) [facility] GLUCOSE (AUTOMATED)2022-03-24 13:01:44 Test Item Value Reference Range Interpretation Comments POCT GLU (test code = 4977346841) 251 mg/dL 70-110 H Lab Interpretation (test code = Abnormal 18291-4) [facility] GLUCOSE (AUTOMATED)2022-03-24 13:01:44 Test Item Value Reference Range Interpretation Comments POCT GLU (test code = 1426916184) 251 mg/dL 70-110 H Lab Interpretation (test code = Abnormal 83290-0) [facility] GLUCOSE (AUTOMATED)2022-03-24 13:01:44 Test Item Value Reference Range Interpretation Comments POCT GLU (test code = 8536044192) 251 mg/dL 70-110 H Lab Interpretation (test code = Abnormal 17486-4) [facility] GLUCOSE (AUTOMATED)2022-03-24 13:01:44 Test Item Value Reference Range Interpretation Comments POCT GLU (test code = 3012405588) 251 mg/dL 70-110 H Lab Interpretation (test code = Abnormal 40771-6) [facility] METABOLIC PANEL (NA, K, CL, CO2, GLUCOSE, BUN, CREATININE, CA)2022-03-24 11:58:48 Test Item Value Reference Range Interpretation Comments NA (test code = 135 mmol/L 135-145 8337411940) K (test code = 4.5 mmol/L 3.5-5.0 4101666970) CL (test code = 105 mmol/L 98-108 7632149377) CO2 TOTAL (test code = 25 mmol/L 23-31 7350409230) AGAP (test code = 2-16 1070047392) BUN (test code = 19 mg/dL 7-23 0892799926) GLUCOSE (test code = 208 mg/dL 70-110 H 0101925445) CREATININE (test code = 0.81 mg/dL 0.50-1.04 7938338672) CALCIUM (test code = 8.0 mg/dL 8.6-10.6 L 2292659516) eGFR (test code = mL/min/1.73m2 4097606688) NISHA (test code = NISHA) Association of [...] tests). Lab Interpretation Abnormal (test code = 70787-7) [facility] 11:58:48 Test Item Value Reference Range Interpretation Comments MAGNESIUM (test code = 8875189939) 1.7 mg/dL 1.7-2.4 Lab Interpretation (test code = Normal 46619-9) [facility] 11:58:48 Test Item Value Reference Range Interpretation Comments PHOSPHORUS (test code = 2441478962) 3.6 mg/dL 2.5-5.0 Lab Interpretation (test code = Normal 28220-9) [facility] (NA, K, CL, CO2, GLUCOSE, BUN, CREATININE, CA)2022-03-24 11:58:48 Test Item Value Reference Range Interpretation Comments NA (test code = 135 mmol/L 135-145 7461740263) K (test code = 4.5 mmol/L 3.5-5.0 6748885638) CL (test code = 105 mmol/L 98-108 3471502456) CO2 TOTAL (test code = 25 mmol/L 23-31 1585289761) AGAP (test code = 2-16 8567227346) BUN (test code = 19 mg/dL 7-23 4917355510) GLUCOSE (test code = 208 mg/dL 70-110 H 5199187812) CREATININE (test code = 0.81 mg/dL 0.50-1.04 9217058795) CALCIUM (test code = 8.0 mg/dL 8.6-10.6 L 1130879071) eGFR (test code = mL/min/1.73m2 7817173084) NISHA (test code = NISHA) Association of [...] tests). Lab Interpretation Abnormal (test code = 29972-8) [facility] Test Item Value Reference Range Interpretation Comments MAGNESIUM (test code = 8228974715) 1.7 mg/dL 1.7-2.4 Lab Interpretation (test code = Normal 02338-2) [facility] 11:58:48 Test Item Value Reference Range Interpretation Comments PHOSPHORUS (test code = 1473317928) 3.6 mg/dL 2.5-5.0 Lab Interpretation (test code = Normal 23252-8) [facility] (NA, K, CL, CO2, GLUCOSE, BUN, CREATININE, CA)2022-03-24 11:58:48 Test Item Value Reference Range Interpretation Comments NA (test code = 135 mmol/L 135-145 8424338240) K (test code = 4.5 mmol/L 3.5-5.0 6127382041) CL (test code = 105 mmol/L 98-108 1081366463) CO2 TOTAL (test code = 25 mmol/L 23-31 0576897255) AGAP (test code = 2-16 3081111517) BUN (test code = 19 mg/dL 7-23 3503246302) GLUCOSE (test code = 208 mg/dL 70-110 H 1023821784) CREATININE (test code = 0.81 mg/dL 0.50-1.04 8350220437) CALCIUM (test code = 8.0 mg/dL 8.6-10.6 L 6550745039) eGFR (test code = mL/min/1.73m2 3005460349) NISHA (test code = NISHA) Association of [...] tests). Lab Interpretation Abnormal (test code = 90408-6) [facility] 11:58:48 Test Item Value Reference Range Interpretation Comments MAGNESIUM (test code = 4126965864) 1.7 mg/dL 1.7-2.4 Lab Interpretation (test code = Normal 00296-9) [facility] 11:58:48 Test Item Value Reference Range Interpretation Comments PHOSPHORUS (test code = 7912680135) 3.6 mg/dL 2.5-5.0 Lab Interpretation (test code = Normal 77391-0) [facility] (NA, K, CL, CO2, GLUCOSE, BUN, CREATININE, CA)2022-03-24 11:58:48 Test Item Value Reference Range Interpretation Comments NA (test code = 135 mmol/L 135-145 0982206411) K (test code = 4.5 mmol/L 3.5-5.0 0779126700) CL (test code = 105 mmol/L 98-108 3826840271) CO2 TOTAL (test code = 25 mmol/L 23-31 7197266515) AGAP (test code = 2-16 8650034160) BUN (test code = 19 mg/dL 7-23 8284133160) GLUCOSE (test code = 208 mg/dL 70-110 H 5313904534) CREATININE (test code = 0.81 mg/dL 0.50-1.04 8326711389) CALCIUM (test code = 8.0 mg/dL 8.6-10.6 L 6771393354) eGFR (test code = mL/min/1.73m2 8667896574) NISHA (test code = NISHA) Association of [...] tests). Lab Interpretation Abnormal (test code = 32699-8) [facility] 11:58:48 Test Item Value Reference Range Interpretation Comments MAGNESIUM (test code = 7433281230) 1.7 mg/dL 1.7-2.4 Lab Interpretation (test code = Normal 05273-6) [facility] 11:58:48 Test Item Value Reference Range Interpretation Comments PHOSPHORUS (test code = 9182850172) 3.6 mg/dL 2.5-5.0 Lab Interpretation (test code = Normal 35746-4) [facility] [id number] 07:01:02 Test Item Value Reference Range Interpretation Comments Blood Culture-Aerobic No organisms No growth Previo us (test code = 00975-1) isolated prelim inary verified result was Culture [...] Culture-Anaerobic isolated preliminar y (test code = 77462-6) verifi ed result was Culture In Progress [...] CDT Lab Interpretation Normal (test code = 85754-8) [facility] [id number] 07:01:02 Test Item Value Reference Range Interpretation Comments Blood Culture-Aerobic No organisms No growth Previo us (test code = 69072-3) isolated prelim inary verified result was Culture [...] Culture-Anaerobic isolated preliminar y (test code = 55275-7) verifi ed result was Culture In Progress [...] CDT Lab Interpretation Normal (test code = 62714-8) [facility] CULTURE [id number] 07:01:02 Test Item Value Reference Range Interpretation Comments Blood Culture-Aerobic No organisms No growth Previo us (test code = 12185-7) isolated prelim inary verified result was Culture [...] Culture-Anaerobic isolated preliminar y (test code = 75747-9) verifi ed result was Culture In Progress [...] CDT Lab Interpretation Normal (test code = 67859-1) [facility] CULTURE [id number] 07:01:02 Test Item Value Reference Range Interpretation Comments Blood Culture-Aerobic No organisms No growth Previo us (test code = 21044-4) isolated prelim inary verified result was Culture [...] Culture-Anaerobic isolated preliminar y (test code = 27299-1) verifi ed result was Culture In Progress [...] CDT Lab Interpretation Normal (test code = 67443-7) [facility] CULTURE [id number] 07:01:02 Test Item Value Reference Range Interpretation Comments Blood Culture-Aerobic No organisms No growth Previo us (test code = 04975-2) isolated prelim inary verified result was Culture [...] Culture-Anaerobic isolated preliminar y (test code = 62442-6) verifi ed result was Culture In Progress [...] CDT Lab Interpretation Normal (test code = 79063-7) [facility] CULTURE [id number] 07:01:02 Test Item Value Reference Range Interpretation Comments Blood Culture-Aerobic No organisms No growth Previo us (test code = 79434-5) isolated prelim inary verified result was Culture [...] Culture-Anaerobic isolated preliminar y (test code = 30621-4) verifi ed result was Culture In Progress [...] CDT Lab Interpretation Normal (test code = 19619-4) [facility] CULTURE [id number] 07:01:02 Test Item Value Reference Range Interpretation Comments Blood Culture-Aerobic No organisms No growth Previo us (test code = 66826-7) isolated prelim inary verified result was Culture [...] Culture-Anaerobic isolated preliminar y (test code = 22536-1) verifi ed result was Culture In Progress [...] CDT Lab Interpretation Normal (test code = 08106-2) [facility] CULTURE [id number] 07:01:02 Test Item Value Reference Range Interpretation Comments Blood Culture-Aerobic No organisms No growth Previo us (test code = 81897-9) isolated prelim inary verified result was Culture [...] Culture-Anaerobic isolated preliminar y (test code = 87785-0) verifi ed result was Culture In Progress [...] CDT Lab Interpretation Normal (test code = 57048-0) [facility] CULTURE [id number] 07:01:02 Test Item Value Reference Range Interpretation Comments Blood Culture-Aerobic No organisms No growth Previo us (test code = 94067-7) isolated prelim inary verified result was Culture [...] Culture-Anaerobic isolated preliminar y (test code = 34060-5) verifi ed result was Culture In Progress [...] CDT Lab Interpretation Normal (test code = 99859-8) [facility] GLUCOSE (AUTOMATED)2022-03-24 01:11:03 Test Item Value Reference Range Interpretation Comments POCT GLU (test code = 2350978185) 211 mg/dL 70-110 H Lab Interpretation (test code = Abnormal 43066-1) [facility] GLUCOSE (AUTOMATED)2022-03-24 01:11:03 Test Item Value Reference Range Interpretation Comments POCT GLU (test code = 7183764493) 211 mg/dL 70-110 H Lab Interpretation (test code = Abnormal 46211-3) [facility] GLUCOSE (AUTOMATED)2022-03-24 01:11:03 Test Item Value Reference Range Interpretation Comments POCT GLU (test code = 5636933292) 211 mg/dL 70-110 H Lab Interpretation (test code = Abnormal 78422-3) [facility] GLUCOSE (AUTOMATED)2022-03-24 01:11:03 Test Item Value Reference Range Interpretation Comments POCT GLU (test code = 6853814874) 211 mg/dL 70-110 H Lab Interpretation (test code = Abnormal 15837-2) [facility] GLUCOSE (AUTOMATED)2022-03-23 22:13:29 Test Item Value Reference Range Interpretation Comments POCT GLU (test code = 6374278650) 89 mg/dL 70-110 Lab Interpretation (test code = Normal 03854-8) [facility] GLUCOSE (AUTOMATED)2022-03-23 22:13:29 Test Item Value Reference Range Interpretation Comments POCT GLU (test code = 4042755945) 89 mg/dL 70-110 Lab Interpretation (test code = Normal 94069-4) [facility] GLUCOSE (AUTOMATED)2022-03-23 22:13:29 Test Item Value Reference Range Interpretation Comments POCT GLU (test code = 8720313389) 89 mg/dL 70-110 Lab Interpretation (test code = Normal 18805-6) [facility] GLUCOSE (AUTOMATED)2022-03-23 22:13:29 Test Item Value Reference Range Interpretation Comments POCT GLU (test code = 6897607897) 89 mg/dL 70-110 Lab Interpretation (test code = Normal 33476-0) [facility] GLUCOSE (AUTOMATED)2022-03-23 16:48:55 Test Item Value Reference Range Interpretation Comments POCT GLU (test code = 6522109882) 274 mg/dL 70-110 H Lab Interpretation (test code = Abnormal 64911-3) [facility]22-[facility]-23 16:48:55 Test Item Value Reference Range Interpretation Comments POCT GLU (test code = 9229033478) 274 mg/dL 70-110 H Lab Interpretation (test code = Abnormal 04227-4) [facility] GLUCOSE (AUTOMATED)2022-03-23 16:48:55 Test Item Value Reference Range Interpretation Comments POCT GLU (test code = 6122527219) 274 mg/dL 70-110 H Lab Interpretation (test code = Abnormal 90584-8) [facility] GLUCOSE (AUTOMATED)2022-03-23 16:48:55 Test Item Value Reference Range Interpretation Comments POCT GLU (test code = 9250150540) 274 mg/dL 70-110 H Lab Interpretation (test code = Abnormal 45482-4) [facility] GLUCOSE (AUTOMATED)2022-03-23 13:16:06 Test Item Value Reference Range Interpretation Comments POCT GLU (test code = 4900673153) 222 mg/dL 70-110 H Lab Interpretation (test code = Abnormal 61690-7) [facility] GLUCOSE (AUTOMATED)2022-03-23 13:16:06 Test Item Value Reference Range Interpretation Comments POCT GLU (test code = 7925289885) 222 mg/dL 70-110 H Lab Interpretation (test code = Abnormal 21578-8) [facility] GLUCOSE (AUTOMATED)2022-03-23 13:16:06 Test Item Value Reference Range Interpretation Comments POCT GLU (test code = 2280363372) 222 mg/dL 70-110 H Lab Interpretation (test code = Abnormal 23376-9) [facility] GLUCOSE (AUTOMATED)2022-03-23 13:16:06 Test Item Value Reference Range Interpretation Comments POCT GLU (test code = 6974582401) 222 mg/dL 70-110 H Lab Interpretation (test code = Abnormal 34221-9) [facility] GLUCOSE (AUTOMATED)2022-03-23 01:21:36 Test Item Value Reference Range Interpretation Comments POCT GLU (test code = 243 mg/dL 70-110 H Notifi ed Provider [id number]) Lab Interpretation (test Abnormal code = 08926-8) [facility] 01:21:36 Test Item Value Reference Range Interpretation Comments POCT GLU (test code = 243 mg/dL 70-110 H Notifi ed Provider [id number]) Lab Interpretation (test Abnormal code = 61158-2) [facility] 01:21:36 Test Item Value Reference Range Interpretation Comments POCT GLU (test code = 243 mg/dL 70-110 H Notifi ed Provider [id number]) Lab Interpretation (test Abnormal code = 94946-6) [facility] 01:21:36 Test Item Value Reference Range Interpretation Comments POCT GLU (test code = 243 mg/dL 70-110 H Notifi ed Provider [id number]) Lab Interpretation (test Abnormal code = 91719-8) [facility] GLUCOSE (AUTOMATED)2022-03-22 23:40:15 Test Item Value Reference Range Interpretation Comments POCT GLU (test code = 2284972896) 196 mg/dL 70-110 H Lab Interpretation (test code = Abnormal 30589-4) [facility] 23:40:15 Test Item Value Reference Range Interpretation Comments POCT GLU (test code = 6555867951) 196 mg/dL 70-110 H Lab Interpretation (test code = Abnormal 08917-9) [facility] GLUCOSE (AUTOMATED)2022-03-22 23:40:15 Test Item Value Reference Range Interpretation Comments POCT GLU (test code = 7172253678) 196 mg/dL 70-110 H Lab Interpretation (test code = Abnormal 28344-7) [facility] 23:40:15 Test Item Value Reference Range Interpretation Comments POCT GLU (test code = 6241148374) 196 mg/dL 70-110 H Lab Interpretation (test code = Abnormal 89784-1) [facility] 17:03:03 Test Item Value Reference Range Interpretation Comments POCT GLU (test code = 0213012962) 250 mg/dL 70-110 H Lab Interpretation (test code = Abnormal 89361-0) [facility] GLUCOSE (AUTOMATED)2022-03-22 17:03:03 Test Item Value Reference Range Interpretation Comments POCT GLU (test code = 1130415183) 250 mg/dL 70-110 H Lab Interpretation (test code = Abnormal 42310-8) [facility] GLUCOSE (AUTOMATED)2022-03-22 17:03:03 Test Item Value Reference Range Interpretation Comments POCT GLU (test code = 7540055211) 250 mg/dL 70-110 H Lab Interpretation (test code = Abnormal 70798-1) [facility] GLUCOSE (AUTOMATED)2022-03-22 17:03:03 Test Item Value Reference Range Interpretation Comments POCT GLU (test code = 3781249470) 250 mg/dL 70-110 H Lab Interpretation (test code = Abnormal 81986-9) [facility] GLUCOSE (AUTOMATED)2022-03-22 13:06:53 Test Item Value Reference Range Interpretation Comments POCT GLU (test code = 2402861224) 276 mg/dL 70-110 H Lab Interpretation (test code = Abnormal 14038-4) [facility] GLUCOSE (AUTOMATED)2022-03-22 13:06:53 Test Item Value Reference Range Interpretation Comments POCT GLU (test code = 7719284780) 276 mg/dL 70-110 H Lab Interpretation (test code = Abnormal 93866-0) [facility] GLUCOSE (AUTOMATED)2022-03-22 13:06:53 Test Item Value Reference Range Interpretation Comments POCT GLU (test code = 0248978007) 276 mg/dL 70-110 H Lab Interpretation (test code = Abnormal 11544-3) [facility] GLUCOSE (AUTOMATED)2022-03-22 13:06:53 Test Item Value Reference Range Interpretation Comments POCT GLU (test code = 6829608136) 276 mg/dL 70-110 H Lab Interpretation (test code = Abnormal 95790-8) [facility] WITH [id number] 10:40:52 Test Item Value Reference Range Interpretation [...] RDW-SD (test code = 39.0 fL 39.0-49.9 99607-2) RDW-CV (test code = 12.2 % 12.0-15.5 788-0) PLT (test code = See_Comment [Automated 777-3) message] The sy stem which generated this result transmitted reference range : 166 - 358 10*3/ ?L. The reference r chelsie was not used to interpret this result as normal/abnormal . MPV (test code = 10.7 fL 9.5-12.9 95774-7) NRBC/100 WBC (test See_Comment [Automat ed code = 3746016486) message] The system which generated this result transmitted reference range : 0.0 - 10.0 /100 WBCs. The refer ence range was not u sed to interpret th is result as normal/abnormal . NRBC x10^3 (test code See_Comment [Auto mated = 3867148130) message] The s ystem which generated this result transmitted reference range : 10*3/?L. The reference range was not used to interpret this result as normal/abnormal . GRAN MAT (NEUT) % 59.2 % (test code = 770-8) IMM GRAN % (test code 0.30 % = 4781166997) LYMPH % (test code = 27.8 % 736-9) MONO % (test code = 10.7 % 5905-5) EOS % (test code = 1.5 % 713-8) BASO % (test code = 0.5 % 706-2) GRAN MAT x10^3(ANC) 5.24 10*3/uL 1.88-7.09 (test code = 7614754996) IMM GRAN x10^3 (test 0.03 10*3/uL 0.00-0.06 code = 7336086652) LYMPH x10^3 (test code 2.46 10*3/uL 1.32-3.29 = 731-0) MONO x10^3 (test code 0.95 10*3/uL 0.33-0.92 H = 742-7) EOS x10^3 (test code = 0.13 10*3/uL 0.03-0.39 711-2) BASO x10^3 (test code 0.04 10*3/uL 0.01-0.07 = 704-7) Lab Interpretation Abnormal (test code = 80081-9) [facility] WITH [id number] 10:40:52 Test Item Value Reference Range Interpretation [...] RDW-SD (test code = 39.0 fL 39.0-49.9 08177-1) RDW-CV (test code = 12.2 % 12.0-15.5 788-0) PLT (test code = See_Comment [Automated 777-3) message] The sy stem which generated this result transmitted reference range : 166 - 358 10*3/ ?L. The reference r chelsie was not used to interpret this result as normal/abnormal . MPV (test code = 10.7 fL 9.5-12.9 10530-1) NRBC/100 WBC (test See_Comment [Automat ed code = 7463873863) message] The system which generated this result transmitted reference range : 0.0 - 10.0 /100 WBCs. The refer ence range was not u sed to interpret th is result as normal/abnormal . NRBC x10^3 (test code See_Comment [Auto mated = 5540811741) message] The s ystem which generated this result transmitted reference range : 10*3/?L. The reference range was not used to interpret this result as normal/abnormal . GRAN MAT (NEUT) % 59.2 % (test code = 770-8) IMM GRAN % (test code 0.30 % = 4718858525) LYMPH % (test code = 27.8 % 736-9) MONO % (test code = 10.7 % 5905-5) EOS % (test code = 1.5 % 713-8) BASO % (test code = 0.5 % 706-2) GRAN MAT x10^3(ANC) 5.24 10*3/uL 1.88-7.09 (test code = 3502648001) IMM GRAN x10^3 (test 0.03 10*3/uL 0.00-0.06 code = 2290041980) LYMPH x10^3 (test code 2.46 10*3/uL 1.32-3.29 = 731-0) MONO x10^3 (test code 0.95 10*3/uL 0.33-0.92 H = 742-7) EOS x10^3 (test code = 0.13 10*3/uL 0.03-0.39 711-2) BASO x10^3 (test code 0.04 10*3/uL 0.01-0.07 = 704-7) Lab Interpretation Abnormal (test code = 94963-4) [facility] WITH [id number] 10:40:52 Test Item Value Reference Range Interpretation [...] RDW-SD (test code = 39.0 fL 39.0-49.9 32623-5) RDW-CV (test code = 12.2 % 12.0-15.5 788-0) PLT (test code = See_Comment [Automated 777-3) message] The sy stem which generated this result transmitted reference range : 166 - 358 10*3/ ?L. The reference r chelsie was not used to interpret this result as normal/abnormal . MPV (test code = 10.7 fL 9.5-12.9 39429-5) NRBC/100 WBC (test See_Comment [Automat ed code = 1570560445) message] The system which generated this result transmitted reference range : 0.0 - 10.0 /100 WBCs. The refer ence range was not u sed to interpret th is result as normal/abnormal . NRBC x10^3 (test code See_Comment [Auto mated = 9053266615) message] The s ystem which generated this result transmitted reference range : 10*3/?L. The reference range was not used to interpret this result as normal/abnormal . GRAN MAT (NEUT) % 59.2 % (test code = 770-8) IMM GRAN % (test code 0.30 % = 2933616527) LYMPH % (test code = 27.8 % 736-9) MONO % (test code = 10.7 % 5905-5) EOS % (test code = 1.5 % 713-8) BASO % (test code = 0.5 % 706-2) GRAN MAT x10^3(ANC) 5.24 10*3/uL 1.88-7.09 (test code = 2004733730) IMM GRAN x10^3 (test 0.03 10*3/uL 0.00-0.06 code = 5806677856) LYMPH x10^3 (test code 2.46 10*3/uL 1.32-3.29 = 731-0) MONO x10^3 (test code 0.95 10*3/uL 0.33-0.92 H = 742-7) EOS x10^3 (test code = 0.13 10*3/uL 0.03-0.39 711-2) BASO x10^3 (test code 0.04 10*3/uL 0.01-0.07 = 704-7) Lab Interpretation Abnormal (test code = 72851-9) [facility] WITH [id number] 10:40:52 Test Item Value Reference Range Interpretation Comments WBC (test code = See_Comment [Automated 6690-2) message] The sy stem which generated this result transmitted reference range : 4.30 - 11.10 10*3/?L. The reference range was not used to interpret this result as normal/abnormal . RBC (test code = See_Comment L [Automated 919-8) message] The sy stem which generated this [...] RDW-SD (test code = 39.0 fL 39.0-49.9 62009-6) RDW-CV (test code = 12.2 % 12.0-15.5 788-0) PLT (test code = See_Comment [Automated 777-3) message] The sy stem which generated this result transmitted reference range : 166 - 358 10*3/ ?L. The reference r chelsie was not used to interpret this result as normal/abnormal . MPV (test code = 10.7 fL 9.5-12.9 74766-6) NRBC/100 WBC (test See_Comment [Automat ed code = 6704982481) message] The system which generated this result transmitted reference range : 0.0 - 10.0 /100 WBCs. The refer ence range was not u sed to interpret th is result as normal/abnormal . NRBC x10^3 (test code See_Comment [Auto mated = 9000099795) message] The s ystem which generated this result transmitted reference range : 10*3/?L. The reference range was not used to interpret this result as normal/abnormal . GRAN MAT (NEUT) % 59.2 % (test code = 770-8) IMM GRAN % (test code 0.30 % = 5728802551) LYMPH % (test code = 27.8 % 736-9) MONO % (test code = 10.7 % 5905-5) EOS % (test code = 1.5 % 713-8) BASO % (test code = 0.5 % 706-2) GRAN MAT x10^3(ANC) 5.24 10*3/uL 1.88-7.09 (test code = 6606342186) IMM GRAN x10^3 (test 0.03 10*3/uL 0.00-0.06 code = 9983187699) LYMPH x10^3 (test code 2.46 10*3/uL 1.32-3.29 = 731-0) MONO x10^3 (test code 0.95 10*3/uL 0.33-0.92 H = 742-7) EOS x10^3 (test code = 0.13 10*3/uL 0.03-0.39 711-2) BASO x10^3 (test code 0.04 10*3/uL 0.01-0.07 = 704-7) Lab Interpretation Abnormal (test code = 81276-5) [facility] GLUCOSE (AUTOMATED)2022-03-22 01:41:40 Test Item Value Reference Range Interpretation Comments POCT GLU (test code = 9891408740) 213 mg/dL 70-110 H Lab Interpretation (test code = Abnormal 23481-7) [facility] GLUCOSE (AUTOMATED)2022-03-22 01:41:40 Test Item Value Reference Range Interpretation Comments POCT GLU (test code = 7424668916) 213 mg/dL 70-110 H Lab Interpretation (test code = Abnormal 04701-2) [facility] GLUCOSE (AUTOMATED)2022-03-22 01:41:40 Test Item Value Reference Range Interpretation Comments POCT GLU (test code = 2954719690) 213 mg/dL 70-110 H Lab Interpretation (test code = Abnormal 95286-6) [facility] GLUCOSE (AUTOMATED)2022-03-22 01:41:40 Test Item Value Reference Range Interpretation Comments POCT GLU (test code = 3141124044) 213 mg/dL 70-110 H Lab Interpretation (test code = Abnormal 49752-5) [facility] GLUCOSE (AUTOMATED)2022-03-21 22:02:36 Test Item Value Reference Range Interpretation Comments POCT GLU (test code = 1452878958) 181 mg/dL 70-110 H Lab Interpretation (test code = Abnormal 97816-5) [facility] GLUCOSE (AUTOMATED)2022-03-21 22:02:36 Test Item Value Reference Range Interpretation Comments POCT GLU (test code = 1755770453) 181 mg/dL 70-110 H Lab Interpretation (test code = Abnormal 08933-6) [facility] GLUCOSE (AUTOMATED)2022-03-21 22:02:36 Test Item Value Reference Range Interpretation Comments POCT GLU (test code = 7036597034) 181 mg/dL 70-110 H Lab Interpretation (test code = Abnormal 94203-0) [facility] GLUCOSE (AUTOMATED)2022-03-21 22:02:36 Test Item Value Reference Range Interpretation Comments POCT GLU (test code = 3570908755) 181 mg/dL 70-110 H Lab Interpretation (test code = Abnormal 28497-5) [facility] Ovqks8054-29-41 20:49:11 Test Item Value Reference Range Interpretation Comments VANCO RANDOM (test code = 7.6 ug/mL 2251270536) [facility] Cenew0232-16-43 20:49:11 Test Item Value Reference Range Interpretation Comments VANCO RANDOM (test code = 7.6 ug/mL 3447731205) [facility] Vrypo2426-25-43 20:49:11 Test Item Value Reference Range Interpretation Comments VANCO RANDOM (test code = 7.6 ug/mL 7748177489) [facility] Geiei9900-47-48 20:49:11 Test Item Value Reference Range Interpretation Comments VANCO RANDOM (test code = 7.6 ug/mL 1142233668) [facility] Random Mkrpr0491-84-32 20:49:11 Test Item Value Reference Range Interpretation Comments VANCO RANDOM (test code = 7.6 ug/mL 9377077155) [facility] GLUCOSE (AUTOMATED)2022-03-21 17:10:01 Test Item Value Reference Range Interpretation Comments POCT GLU (test code = 5362052506) 291 mg/dL 70-110 H Lab Interpretation (test code = Abnormal 72380-2) [facility] GLUCOSE (AUTOMATED)2022-03-21 17:10:01 Test Item Value Reference Range Interpretation Comments POCT GLU (test code = 5034162511) 291 mg/dL 70-110 H Lab Interpretation (test code = Abnormal 12806-4) [facility] GLUCOSE (AUTOMATED)2022-03-21 17:10:01 Test Item Value Reference Range Interpretation Comments POCT GLU (test code = 2130694408) 291 mg/dL 70-110 H Lab Interpretation (test code = Abnormal 02849-3) [facility] GLUCOSE (AUTOMATED)2022-03-21 17:10:01 Test Item Value Reference Range Interpretation Comments POCT GLU (test code = 9047229228) 291 mg/dL 70-110 H Lab Interpretation (test code = Abnormal 64261-3) [facility] 13:43:44 Test Item Value Reference Range Interpretation Comments POCT GLU (test code = 7651045961) 342 mg/dL 70-110 H Lab Interpretation (test code = Abnormal 25590-4) [facility]-21 13:43:44 Test Item Value Reference Range Interpretation Comments POCT GLU (test code = 8966463423) 342 mg/dL 70-110 H Lab Interpretation (test code = Abnormal 88746-0) [facility] GLUCOSE (AUTOMATED)2022-03-21 13:43:44 Test Item Value Reference Range Interpretation Comments POCT GLU (test code = 7302875913) 342 mg/dL 70-110 H Lab Interpretation (test code = Abnormal 44605-1) [facility] GLUCOSE (AUTOMATED)2022-03-21 13:43:44 Test Item Value Reference Range Interpretation Comments POCT GLU (test code = 2307694611) 342 mg/dL 70-110 H Lab Interpretation (test code = Abnormal 45570-0) [facility] GLUCOSE (AUTOMATED)2022-03-21 01:37:37 Test Item Value Reference Range Interpretation Comments POCT GLU (test code = 8669984963) 231 mg/dL 70-110 H Lab Interpretation (test code = Abnormal 39268-2) [facility] GLUCOSE (AUTOMATED)2022-03-21 01:37:37 Test Item Value Reference Range Interpretation Comments POCT GLU (test code = 7781835537) 231 mg/dL 70-110 H Lab Interpretation (test code = Abnormal 28175-3) [facility] GLUCOSE (AUTOMATED)2022-03-21 01:37:37 Test Item Value Reference Range Interpretation Comments POCT GLU (test code = 3559091453) 231 mg/dL 70-110 H Lab Interpretation (test code = Abnormal 92564-4) [facility] GLUCOSE (AUTOMATED)2022-03-21 01:37:37 Test Item Value Reference Range Interpretation Comments POCT GLU (test code = 6149104369) 231 mg/dL 70-110 H Lab Interpretation (test code = Abnormal 64190-2) [facility] GLUCOSE (AUTOMATED)2022-03-20 22:06:52 Test Item Value Reference Range Interpretation Comments POCT GLU (test code = 8153420838) 136 mg/dL 70-110 H Lab Interpretation (test code = Abnormal 33528-5) [facility] GLUCOSE (AUTOMATED)2022-03-20 22:06:52 Test Item Value Reference Range Interpretation Comments POCT GLU (test code = 8779196396) 136 mg/dL 70-110 H Lab Interpretation (test code = Abnormal 16280-0) [facility] GLUCOSE (AUTOMATED)2022-03-20 22:06:52 Test Item Value Reference Range Interpretation Comments POCT GLU (test code = 2844993192) 136 mg/dL 70-110 H Lab Interpretation (test code = Abnormal 64422-7) [facility] GLUCOSE (AUTOMATED)2022-03-20 22:06:52 Test Item Value Reference Range Interpretation Comments POCT GLU (test code = 2142708023) 136 mg/dL 70-110 H Lab Interpretation (test code = Abnormal 88337-6) [facility] GLUCOSE (AUTOMATED)2022-03-20 16:41:19 Test Item Value Reference Range Interpretation Comments POCT GLU (test code = 9752261340) 329 mg/dL 70-110 H Lab Interpretation (test code = Abnormal 86747-2) [facility] GLUCOSE (AUTOMATED)2022-03-20 16:41:19 Test Item Value Reference Range Interpretation Comments POCT GLU (test code = 1013079958) 329 mg/dL 70-110 H Lab Interpretation (test code = Abnormal 63268-0) [facility] GLUCOSE (AUTOMATED)2022-03-20 16:41:19 Test Item Value Reference Range Interpretation Comments POCT GLU (test code = 6714467757) 329 mg/dL 70-110 H Lab Interpretation (test code = Abnormal 83135-5) [facility] GLUCOSE (AUTOMATED)2022-03-20 16:41:19 Test Item Value Reference Range Interpretation Comments POCT GLU (test code = 2595511850) 329 mg/dL 70-110 H Lab Interpretation (test code = Abnormal 11546-4) [facility] GLUCOSE (AUTOMATED)2022-03-20 12:38:22 Test Item Value Reference Range Interpretation Comments POCT GLU (test code = 9114468149) 178 mg/dL 70-110 H Lab Interpretation (test code = Abnormal 88864-5) [facility] GLUCOSE (AUTOMATED)2022-03-20 12:38:22 Test Item Value Reference Range Interpretation Comments POCT GLU (test code = 3646496013) 178 mg/dL 70-110 H Lab Interpretation (test code = Abnormal 39502-8) [facility] GLUCOSE (AUTOMATED)2022-03-20 12:38:22 Test Item Value Reference Range Interpretation Comments POCT GLU (test code = 2811254763) 178 mg/dL 70-110 H Lab Interpretation (test code = Abnormal 34769-8) [facility] GLUCOSE (AUTOMATED)2022-03-20 12:38:22 Test Item Value Reference Range Interpretation Comments POCT GLU (test code = 2866558715) 178 mg/dL 70-110 H Lab Interpretation (test code = Abnormal 05392-1) [facility] GLUCOSE (AUTOMATED)2022-03-20 01:23:07 Test Item Value Reference Range Interpretation Comments POCT GLU (test code = 3016518570) 232 mg/dL 70-110 H Lab Interpretation (test code = Abnormal 07702-9) [facility] GLUCOSE (AUTOMATED)2022-03-20 01:23:07 Test Item Value Reference Range Interpretation Comments POCT GLU (test code = 1901976278) 232 mg/dL 70-110 H Lab Interpretation (test code = Abnormal 52315-6) [facility] GLUCOSE (AUTOMATED)2022-03-20 01:23:07 Test Item Value Reference Range Interpretation Comments POCT GLU (test code = 5394197516) 232 mg/dL 70-110 H Lab Interpretation (test code = Abnormal 51298-9) [facility] GLUCOSE (AUTOMATED)2022-03-20 01:23:07 Test Item Value Reference Range Interpretation Comments POCT GLU (test code = 2329505803) 232 mg/dL 70-110 H Lab Interpretation (test code = Abnormal 10648-7) [facility] GLUCOSE (AUTOMATED)2022-03-19 23:58:11 Test Item Value Reference Range Interpretation Comments POCT GLU (test code = 4003954124) 193 mg/dL 70-110 H Lab Interpretation (test code = Abnormal 78240-4) [facility] GLUCOSE (AUTOMATED)2022-03-19 23:58:11 Test Item Value Reference Range Interpretation Comments POCT GLU (test code = 0820080389) 193 mg/dL 70-110 H Lab Interpretation (test code = Abnormal 09844-5) [facility] GLUCOSE (AUTOMATED)2022-03-19 23:58:11 Test Item Value Reference Range Interpretation Comments POCT GLU (test code = 6428757052) 193 mg/dL 70-110 H Lab Interpretation (test code = Abnormal 97020-8) [facility] GLUCOSE (AUTOMATED)2022-03-19 23:58:11 Test Item Value Reference Range Interpretation Comments POCT GLU (test code = 0165553916) 193 mg/dL 70-110 H Lab Interpretation (test code = Abnormal 83427-0) [facility] GLUCOSE (AUTOMATED)2022-03-19 16:47:08 Test Item Value Reference Range Interpretation Comments POCT GLU (test code = 5180722716) 275 mg/dL 70-110 H Lab Interpretation (test code = Abnormal 98973-0) [facility] GLUCOSE (AUTOMATED)2022-03-19 16:47:08 Test Item Value Reference Range Interpretation Comments POCT GLU (test code = 0759420974) 275 mg/dL 70-110 H Lab Interpretation (test code = Abnormal 76135-0) [facility] GLUCOSE (AUTOMATED)2022-03-19 16:47:08 Test Item Value Reference Range Interpretation Comments POCT GLU (test code = 5696054265) 275 mg/dL 70-110 H Lab Interpretation (test code = Abnormal 99540-2) [facility] GLUCOSE (AUTOMATED)2022-03-19 16:47:08 Test Item Value Reference Range Interpretation Comments POCT GLU (test code = 5144334786) 275 mg/dL 70-110 H Lab Interpretation (test code = Abnormal 45930-9) [facility]22-03-19 15:10:36 Test Item Value Reference Range Interpretation Comments HGB A1C (test code = 4.0-5.7 H 4548-4) NISHA (test code = NISHA) Reference RangesNormal: <5.7%Prediabetes: 5.7 - 6.4%Diabetes: > 6.5% Lab Interpretation (test Abnormal code = 58073-9) [facility]2022-03-19 15:10:36 Test Item Value Reference Range Interpretation Comments HGB A1C (test code = 4.0-5.7 H 4548-4) NISHA (test code = NISHA) Reference RangesNormal: <5.7%Prediabetes: 5.7 - 6.4%Diabetes: > 6.5% Lab Interpretation (test Abnormal code = 22188-6) [facility]2022-03-19 15:10:36 Test Item Value Reference Range Interpretation Comments HGB A1C (test code = 4.0-5.7 H 4548-4) NISHA (test code = NISHA) Reference RangesNormal: <5.7%Prediabetes: 5.7 - 6.4%Diabetes: > 6.5% Lab Interpretation (test Abnormal code = 87909-9) [facility]2022-03-19 15:10:36 Test Item Value Reference Range Interpretation Comments HGB A1C (test code = 4.0-5.7 H 4548-4) NISHA (test code = NISHA) Reference RangesNormal: <5.7%Prediabetes: 5.7 - 6.4%Diabetes: > 6.5% Lab Interpretation (test Abnormal code = 81826-9) [facility]2022-03-19 15:10:36 Test Item Value Reference Range Interpretation Comments HGB A1C (test code = 4.0-5.7 H 4548-4) NISHA (test code = NISHA) Reference RangesNormal: <5.7%Prediabetes: 5.7 - 6.4%Diabetes: > 6.5% Lab Interpretation (test Abnormal code = 33151-3) [facility] GLUCOSE (AUTOMATED)2022-03-19 12:34:11 Test Item Value Reference Range Interpretation Comments POCT GLU (test code = 8360864752) 275 mg/dL 70-110 H Lab Interpretation (test code = Abnormal 27941-5) [facility] GLUCOSE (AUTOMATED)2022-03-19 12:34:11 Test Item Value Reference Range Interpretation Comments POCT GLU (test code = 4677780789) 275 mg/dL 70-110 H Lab Interpretation (test code = Abnormal 40688-8) [facility] GLUCOSE (AUTOMATED)2022-03-19 12:34:11 Test Item Value Reference Range Interpretation Comments POCT GLU (test code = 6150809291) 275 mg/dL 70-110 H Lab Interpretation (test code = Abnormal 76260-0) [facility] GLUCOSE (AUTOMATED)2022-03-19 12:34:11 Test Item Value Reference Range Interpretation Comments POCT GLU (test code = 6961372879) 275 mg/dL 70-110 H Lab Interpretation (test code = Abnormal 66494-4) [facility] METABOLIC PANEL (NA, K, CL, CO2, GLUCOSE, BUN, CREATININE, CA)2022-03-19 09:28:45 Test Item Value Reference Range Interpretation Comments NA (test code = 134 mmol/L 135-145 L 9069259173) K (test code = 3.9 mmol/L 3.5-5.0 3519920062) CL (test code = 102 mmol/L 98-108 0621970601) CO2 TOTAL (test code = 24 mmol/L 23-31 5493569890) AGAP (test code = 2-16 9662169590) BUN (test code = 15 mg/dL 7-23 5041149629) GLUCOSE (test code = 249 mg/dL 70-110 H 1177744192) CREATININE (test code = 0.57 mg/dL 0.50-1.04 9406769751) CALCIUM (test code = 8.2 mg/dL 8.6-10.6 L 6226967864) eGFR (test code = mL/min/1.73m2 5221891222) NISHA (test code = NISHA) Association of [...] tests). Lab Interpretation Abnormal (test code = 05614-6) [facility] METABOLIC PANEL (NA, K, CL, CO2, GLUCOSE, BUN, CREATININE, CA)2022-03-19 09:28:45 Test Item Value Reference Range Interpretation Comments NA (test code = 134 mmol/L 135-145 L 2444465189) K (test code = 3.9 mmol/L 3.5-5.0 8403066557) CL (test code = 102 mmol/L 98-108 5474114055) CO2 TOTAL (test code = 24 mmol/L 23-31 3248770743) AGAP (test code = 2-16 7974525710) BUN (test code = 15 mg/dL 7-23 5536001142) GLUCOSE (test code = 249 mg/dL 70-110 H 2735357983) CREATININE (test code = 0.57 mg/dL 0.50-1.04 4905674352) CALCIUM (test code = 8.2 mg/dL 8.6-10.6 L 6463326014) eGFR (test code = mL/min/1.73m2 5432627798) NISHA (test code = NISHA) Association of [...] tests). Lab Interpretation Abnormal (test code = 70371-1) [facility] (NA, K, CL, CO2, GLUCOSE, BUN, CREATININE, CA)2022-03-19 09:28:45 Test Item Value Reference Range Interpretation Comments NA (test code = 134 mmol/L 135-145 L 8087276609) K (test code = 3.9 mmol/L 3.5-5.0 8525902641) CL (test code = 102 mmol/L 98-108 7995211008) CO2 TOTAL (test code = 24 mmol/L 23-31 5453230357) AGAP (test code = 2-16 1733350030) BUN (test code = 15 mg/dL 7-23 0627439312) GLUCOSE (test code = 249 mg/dL 70-110 H 9182129465) CREATININE (test code = 0.57 mg/dL 0.50-1.04 5117046013) CALCIUM (test code = 8.2 mg/dL 8.6-10.6 L 1763513534) eGFR (test code = mL/min/1.73m2 8841759499) NISHA (test code = NISHA) Association of [...] tests). Lab Interpretation Abnormal (test code = 03169-7) [facility] METABOLIC PANEL (NA, K, CL, CO2, GLUCOSE, BUN, CREATININE, CA)2022-03-19 09:28:45 Test Item Value Reference Range Interpretation Comments NA (test code = 134 mmol/L 135-145 L 9497746489) K (test code = 3.9 mmol/L 3.5-5.0 0891576763) CL (test code = 102 mmol/L 98-108 8657849790) CO2 TOTAL (test code = 24 mmol/L 23-31 8764915057) AGAP (test code = 2-16 5072156912) BUN (test code = 15 mg/dL 7-23 6336485639) GLUCOSE (test code = 249 mg/dL 70-110 H 0999131451) CREATININE (test code = 0.57 mg/dL 0.50-1.04 0281852101) CALCIUM (test code = 8.2 mg/dL 8.6-10.6 L 2038030539) eGFR (test code = mL/min/1.73m2 0099244458) NISHA (test code = NISHA) Association of [...] tests). Lab Interpretation Abnormal (test code = 44648-8) [facility] GLUCOSE(AGE >30DAYS)2022-03-19 07:48:00 Test Item Value Reference Range Interpretation Comments POCT Glu (age>30days) (test code = 328 mg/dL 70-110 A 3342) Lab Interpretation (test code = Abnormal 89392-3) [facility] GLUCOSE(AGE >30DAYS)2022-03-19 07:48:00 Test Item Value Reference Range Interpretation Comments POCT Glu (age>30days) (test code = 328 mg/dL 70-110 A 3342) Lab Interpretation (test code = Abnormal 38482-8) [facility] GLUCOSE(AGE >30DAYS)2022-03-19 07:48:00 Test Item Value Reference Range Interpretation Comments POCT Glu (age>30days) (test code = 328 mg/dL 70-110 A 3342) Lab Interpretation (test code = Abnormal 03023-9) [facility] GLUCOSE(AGE >30DAYS)2022-03-19 07:48:00 Test Item Value Reference Range Interpretation Comments POCT Glu (age>30days) (test code = 328 mg/dL 70-110 A 3342) Lab Interpretation (test code = Abnormal 63491-3) [facility] GLUCOSE(AGE >30DAYS)2022-03-19 07:48:00 Test Item Value Reference Range Interpretation Comments POCT Glu (age>30days) (test code = 328 mg/dL 70-110 A 3342) Lab Interpretation (test code = Abnormal 62594-0) [facility] GLUCOSE (AUTOMATED)2022-03-19 07:46:07 Test Item Value Reference Range Interpretation Comments POCT GLU (test code = 6453963591) 328 mg/dL 70-110 H Lab Interpretation (test code = Abnormal 06488-0) [facility] GLUCOSE (AUTOMATED)2022-03-19 07:46:07 Test Item Value Reference Range Interpretation Comments POCT GLU (test code = 2825000415) 328 mg/dL 70-110 H Lab Interpretation (test code = Abnormal 51260-8) [facility] GLUCOSE (AUTOMATED)2022-03-19 07:46:07 Test Item Value Reference Range Interpretation Comments POCT GLU (test code = 5889053796) 328 mg/dL 70-110 H Lab Interpretation (test code = Abnormal 68132-4) [facility] GLUCOSE (AUTOMATED)2022-03-19 07:46:07 Test Item Value Reference Range Interpretation Comments POCT GLU (test code = 5400329519) 328 mg/dL 70-110 H Lab Interpretation (test code = Abnormal 26707-1) [facility]. METABOLIC PANEL ([id number])2022-03-19 06:53:44 Test Item Value Reference Range Interpretation Comments NA (test code = 129 mmol/L 135-145 L 9020863167) K (test code = 4.8 mmol/L 3.5-5.0 Slight 9678913463) hemolysis CL (test code = 91 mmol/L 98-108 L 5537974714) CO2 TOTAL (test code 20 mmol/L 23-31 L = 4983939839) AGAP (test code = 2-16 H 9780694115) BUN (test code = 17 mg/dL 7-23 Slight 5502928913) hemolysis GLUCOSE (test code = 602 mg/dL 70-110 HH 4588294951) CREATININE (test code 0.67 mg/dL 0.50-1.04 = 6918914423) TOTAL BILI (test code 1.1 mg/dL 0.1-1.1 = 5452826300) CALCIUM (test code = 9.4 mg/dL 8.6-10.6 8494735914) T PROTEIN (test code 8.0 g/dL 6.3-8.2 = 3819309108) ALBUMIN (test code = 4.4 g/dL 3.5-5.0 6645387561) ALK PHOS (test code = 182 U/L 34-122 H Slight 5941070242) hemolysis ALTv (test code = 16 U/L 5-35 1742-6) AST(SGOT) (test code 20 U/L 13-40 Slight = 6542357644) hemolysis eGFR (test code = mL/min/1.73m2 3927204540) NISHA (test code = NISHA) Association of [...] tests). Lab Interpretation Abnormal (test code = 70983-1) [facility]. METABOLIC PANEL ([id number])2022-03-19 06:53:44 Test Item Value Reference Range Interpretation Comments NA (test code = 129 mmol/L 135-145 L 7612309268) K (test code = 4.8 mmol/L 3.5-5.0 Slight 3733660935) hemolysis CL (test code = 91 mmol/L 98-108 L 4992454591) CO2 TOTAL (test code 20 mmol/L 23-31 L = 3988136916) AGAP (test code = 2-16 H 1404911063) BUN (test code = 17 mg/dL 7-23 Slight 5828399988) hemolysis GLUCOSE (test code = 602 mg/dL 70-110 HH 0357996406) CREATININE (test code 0.67 mg/dL 0.50-1.04 = 2420982991) TOTAL BILI (test code 1.1 mg/dL 0.1-1.1 = 1398433675) CALCIUM (test code = 9.4 mg/dL 8.6-10.6 6579340693) T PROTEIN (test code 8.0 g/dL 6.3-8.2 = 9705297062) ALBUMIN (test code = 4.4 g/dL 3.5-5.0 4878157673) ALK PHOS (test code = 182 U/L 34-122 H Slight 1727516429) hemolysis ALTv (test code = 16 U/L 5-35 1742-6) AST(SGOT) (test code 20 U/L 13-40 Slight = 0039612305) hemolysis eGFR (test code = mL/min/1.73m2 7501006390) NISHA (test code = NISHA) Association of [...] tests). Lab Interpretation Abnormal (test code = 38526-4) [facility]. METABOLIC PANEL ([id number])2022-03-19 06:53:44 Test Item Value Reference Range Interpretation Comments NA (test code = 129 mmol/L 135-145 L 9929879344) K (test code = 4.8 mmol/L 3.5-5.0 Slight 2756543292) hemolysis CL (test code = 91 mmol/L 98-108 L 9524436205) CO2 TOTAL (test code 20 mmol/L 23-31 L = 4372305424) AGAP (test code = 2-16 H 8096504713) BUN (test code = 17 mg/dL 7-23 Slight 7585964538) hemolysis GLUCOSE (test code = 602 mg/dL 70-110 HH 5030014679) CREATININE (test code 0.67 mg/dL 0.50-1.04 = 4488826230) TOTAL BILI (test code 1.1 mg/dL 0.1-1.1 = 1931433566) CALCIUM (test code = 9.4 mg/dL 8.6-10.6 5054006234) T PROTEIN (test code 8.0 g/dL 6.3-8.2 = 6839198513) ALBUMIN (test code = 4.4 g/dL 3.5-5.0 4990341665) ALK PHOS (test code = 182 U/L 34-122 H Slight 2593315364) hemolysis ALTv (test code = 16 U/L 5-35 1742-6) AST(SGOT) (test code 20 U/L 13-40 Slight = 9930462454) hemolysis eGFR (test code = mL/min/1.73m2 9519417639) NISHA (test code = NISHA) Association of [...] tests). Lab Interpretation Abnormal (test code = 65037-2) [facility]. METABOLIC PANEL ([id number])2022-03-19 06:53:44 Test Item Value Reference Range Interpretation Comments NA (test code = 129 mmol/L 135-145 L 2555699598) K (test code = 4.8 mmol/L 3.5-5.0 Slight 8405156171) hemolysis CL (test code = 91 mmol/L 98-108 L 1486968247) CO2 TOTAL (test code 20 mmol/L 23-31 L = 9063604111) AGAP (test code = 2-16 H 2361243569) BUN (test code = 17 mg/dL 7-23 Slight 4904847686) hemolysis GLUCOSE (test code = 602 mg/dL 70-110 HH 0882725344) CREATININE (test code 0.67 mg/dL 0.50-1.04 = 6612449255) TOTAL BILI (test code 1.1 mg/dL 0.1-1.1 = 8844352986) CALCIUM (test code = 9.4 mg/dL 8.6-10.6 3780065243) T PROTEIN (test code 8.0 g/dL 6.3-8.2 = 8072121917) ALBUMIN (test code = 4.4 g/dL 3.5-5.0 1071541267) ALK PHOS (test code = 182 U/L 34-122 H Slight 1851241452) hemolysis ALTv (test code = 16 U/L 5-35 1742-6) AST(SGOT) (test code 20 U/L 13-40 Slight = 0023442711) hemolysis eGFR (test code = mL/min/1.73m2 7952240301) NISHA (test code = NISHA) Association of [...] tests). Lab Interpretation Abnormal (test code = 57090-9) [facility] WITH [id number] 06:28:00 Test Item Value Reference Range Interpretation Comments WBC (test code = See_Comment [Automated 9450-2) message] The sy stem which generated this result transmitted reference range : 4.30 - 11.10 10*3/?L. The reference range was not used to interpret this result as normal/abnormal . RBC (test code = See_Comment [Automated 576-8) message] The sy stem which generated this [...] (test code = 36.5 fL 39.0-49.9 L 68939-1) RDW-CV (test code = 11.9 % 12.0-15.5 L 788-0) PLT (test code = See_Comment H [Automated 777-3) message] The sy stem which generated this result transmitted reference range : 166 - 358 10*3/ ?L. The reference r chelsie was not used to interpret this result as normal/abnormal . MPV (test code = 10.4 fL 9.5-12.9 41669-7) NRBC/100 WBC (test See_Comment [Automat ed code = 1163896310) message] The system which generated this result transmitted reference range : 0.0 - 10.0 /100 WBCs. The refer ence range was not u sed to interpret th is result as normal/abnormal . NRBC x10^3 (test code See_Comment [Auto mated = 8932922755) message] The s ystem which generated this result transmitted reference range : 10*3/?L. The reference range was not used to interpret this result as normal/abnormal . GRAN MAT (NEUT) % 68.3 % (test code = 770-8) IMM GRAN % (test code 0.50 % = 4435857981) LYMPH % (test code = 23.5 % 736-9) MONO % (test code = 6.2 % 5905-5) EOS % (test code = 0.8 % 713-8) BASO % (test code = 0.7 % 706-2) GRAN MAT x10^3(ANC) 6.85 10*3/uL 1.88-7.09 (test code = 7121836915) IMM GRAN x10^3 (test 0.05 10*3/uL 0.00-0.06 code = 6439682338) LYMPH x10^3 (test code 2.36 10*3/uL 1.32-3.29 = 731-0) MONO x10^3 (test code 0.62 10*3/uL 0.33-0.92 = 742-7) EOS x10^3 (test code = 0.08 10*3/uL 0.03-0.39 711-2) BASO x10^3 (test code 0.07 10*3/uL 0.01-0.07 = 704-7) Lab Interpretation Abnormal (test code = 78448-0) [facility] WITH [id number] 06:28:00 Test Item Value Reference Range Interpretation [...] (test code = 36.5 fL 39.0-49.9 L 42558-4) RDW-CV (test code = 11.9 % 12.0-15.5 L 788-0) PLT (test code = See_Comment H [Automated 777-3) message] The sy stem which generated this result transmitted reference range : 166 - 358 10*3/ ?L. The reference r chelsie was not used to interpret this result as normal/abnormal . MPV (test code = 10.4 fL 9.5-12.9 12287-0) NRBC/100 WBC (test See_Comment [Automat ed code = 5537510089) message] The system which generated this result transmitted reference range : 0.0 - 10.0 /100 WBCs. The refer ence range was not u sed to interpret th is result as normal/abnormal . NRBC x10^3 (test code See_Comment [Auto mated = 5445497783) message] The s ystem which generated this result transmitted reference range : 10*3/?L. The reference range was not used to interpret this result as normal/abnormal . GRAN MAT (NEUT) % 68.3 % (test code = 770-8) IMM GRAN % (test code 0.50 % = 3229549580) LYMPH % (test code = 23.5 % 736-9) MONO % (test code = 6.2 % 5905-5) EOS % (test code = 0.8 % 713-8) BASO % (test code = 0.7 % 706-2) GRAN MAT x10^3(ANC) 6.85 10*3/uL 1.88-7.09 (test code = 8733256917) IMM GRAN x10^3 (test 0.05 10*3/uL 0.00-0.06 code = 5928314614) LYMPH x10^3 (test code 2.36 10*3/uL 1.32-3.29 = 731-0) MONO x10^3 (test code 0.62 10*3/uL 0.33-0.92 = 742-7) EOS x10^3 (test code = 0.08 10*3/uL 0.03-0.39 711-2) BASO x10^3 (test code 0.07 10*3/uL 0.01-0.07 = 704-7) Lab Interpretation Abnormal (test code = 10049-1) [facility] WITH [id number] 06:28:00 Test Item Value Reference Range Interpretation Comments WBC (test code = See_Comment [Automated 3795-2) message] The sy stem which generated this result transmitted reference range : 4.30 - 11.10 10*3/?L. The reference range was not used to interpret this result as normal/abnormal . RBC (test code = See_Comment [Automated 416-8) message] The sy stem which generated this [...] (test code = 36.5 fL 39.0-49.9 L 21209-6) RDW-CV (test code = 11.9 % 12.0-15.5 L 788-0) PLT (test code = See_Comment H [Automated 777-3) message] The sy stem which generated this result transmitted reference range : 166 - 358 10*3/ ?L. The reference r chelsie was not used to interpret this result as normal/abnormal . MPV (test code = 10.4 fL 9.5-12.9 34766-1) NRBC/100 WBC (test See_Comment [Automat ed code = 6546445375) message] The system which generated this result transmitted reference range : 0.0 - 10.0 /100 WBCs. The refer ence range was not u sed to interpret th is result as normal/abnormal . NRBC x10^3 (test code See_Comment [Auto mated = 6850953108) message] The s ystem which generated this result transmitted reference range : 10*3/?L. The reference range was not used to interpret this result as normal/abnormal . GRAN MAT (NEUT) % 68.3 % (test code = 770-8) IMM GRAN % (test code 0.50 % = 0754909275) LYMPH % (test code = 23.5 % 736-9) MONO % (test code = 6.2 % 5905-5) EOS % (test code = 0.8 % 713-8) BASO % (test code = 0.7 % 706-2) GRAN MAT x10^3(ANC) 6.85 10*3/uL 1.88-7.09 (test code = 6753017362) IMM GRAN x10^3 (test 0.05 10*3/uL 0.00-0.06 code = 4094398520) LYMPH x10^3 (test code 2.36 10*3/uL 1.32-3.29 = 731-0) MONO x10^3 (test code 0.62 10*3/uL 0.33-0.92 = 742-7) EOS x10^3 (test code = 0.08 10*3/uL 0.03-0.39 711-2) BASO x10^3 (test code 0.07 10*3/uL 0.01-0.07 = 704-7) Lab Interpretation Abnormal (test code = 75312-9) [facility] WITH [id number] 06:28:00 Test Item Value Reference Range Interpretation Comments WBC (test code = See_Comment [Automated 5890-2) message] The sy stem which generated this [...] (test code = 36.5 fL 39.0-49.9 L 52718-8) RDW-CV (test code = 11.9 % 12.0-15.5 L 788-0) PLT (test code = See_Comment H [Automated 777-3) message] The sy stem which generated this result transmitted reference range : 166 - 358 10*3/ ?L. The reference r chelsie was not used to interpret this result as normal/abnormal . MPV (test code = 10.4 fL 9.5-12.9 34970-4) NRBC/100 WBC (test See_Comment [Automat ed code = 7145276919) message] The system which generated this result transmitted reference range : 0.0 - 10.0 /100 WBCs. The refer ence range was not u sed to interpret th is result as normal/abnormal . NRBC x10^3 (test code See_Comment [Auto mated = 6796065390) message] The s ystem which generated this result transmitted reference range : 10*3/?L. The reference range was not used to interpret this result as normal/abnormal . GRAN MAT (NEUT) % 68.3 % (test code = 770-8) IMM GRAN % (test code 0.50 % = 4654292173) LYMPH % (test code = 23.5 % 736-9) MONO % (test code = 6.2 % 5905-5) EOS % (test code = 0.8 % 713-8) BASO % (test code = 0.7 % 706-2) GRAN MAT x10^3(ANC) 6.85 10*3/uL 1.88-7.09 (test code = 4540063406) IMM GRAN x10^3 (test 0.05 10*3/uL 0.00-0.06 code = 3362226337) LYMPH x10^3 (test code 2.36 10*3/uL 1.32-3.29 = 731-0) MONO x10^3 (test code 0.62 10*3/uL 0.33-0.92 = 742-7) EOS x10^3 (test code = 0.08 10*3/uL 0.03-0.39 711-2) BASO x10^3 (test code 0.07 10*3/uL 0.01-0.07 = 704-7) Lab Interpretation Abnormal (test code = 94452-8) [facility] GLUCOSE (AUTOMATED)2022-03-19 06:15:05 Test Item Value Reference Range Interpretation Comments POCT GLU (test code = 7703642336) 593 mg/dL 70-110 HH Lab Interpretation (test code = Abnormal 45963-0) [facility] GLUCOSE (AUTOMATED)2022-03-19 06:15:05 Test Item Value Reference Range Interpretation Comments POCT GLU (test code = 2584680790) 593 mg/dL 70-110 HH Lab Interpretation (test code = Abnormal 13003-4) [facility] GLUCOSE (AUTOMATED)2022-03-19 06:15:05 Test Item Value Reference Range Interpretation Comments POCT GLU (test code = 0180993162) 593 mg/dL 70-110 HH Lab Interpretation (test code = Abnormal 90877-7) [facility] GLUCOSE (AUTOMATED)2022-03-19 06:15:05 Test Item Value Reference Range Interpretation Comments POCT GLU (test code = 5466184553) 593 mg/dL 70-110 HH Lab Interpretation (test code = Abnormal 19498-3) [facility] GLUCOSE(AGE >30DAYS)2022-03-19 06:15:00 Test Item Value Reference Range Interpretation Comments POCT Glu (age>30days) (test code = 593 mg/dL 70-110 A 3342) Lab Interpretation (test code = Abnormal 39240-8) [facility] GLUCOSE(AGE >30DAYS)2022-03-19 06:15:00 Test Item Value Reference Range Interpretation Comments POCT Glu (age>30days) (test code = 593 mg/dL 70-110 A 3342) Lab Interpretation (test code = Abnormal 38731-9) [facility] GLUCOSE(AGE >30DAYS)2022-03-19 06:15:00 Test Item Value Reference Range Interpretation Comments POCT Glu (age>30days) (test code = 593 mg/dL 70-110 A 3342) Lab Interpretation (test code = Abnormal 19141-0) [facility] GLUCOSE(AGE >30DAYS)2022-03-19 06:15:00 Test Item Value Reference Range Interpretation Comments POCT Glu (age>30days) (test code = 593 mg/dL 70-110 A 3342) Lab Interpretation (test code = Abnormal 72335-5) [facility] HEMOGLOBIN A1C [id number] 21:05:00 Test Item Value Reference Range Interpretation Comments POCT HBA1C (test code = 4548-4) 14 % 4-6 A Lab Interpretation (test code = Abnormal 07686-2) [facility] HEMOGLOBIN A1C [id number] 21:05:00 Test Item Value Reference Range Interpretation Comments POCT HBA1C (test code = 4548-4) 14 % 4-6 A Lab Interpretation (test code = Abnormal 62906-4) [facility] [id number] 21:05:00 Test Item Value Reference Range Interpretation Comments POCT HBA1C (test code = 4548-4) 14 % 4-6 A Lab Interpretation (test code = Abnormal 81375-1) [facility]"
[2022-04-17] MEDS ORDERED: NA CHLORIDE 0.9% 1,000 ML ONE ×2 (06:56→11:55)
[2022-04-17 07:53] LABS: Absolute Lymphocytes (CBC) 1.1 K/uL (0.7-4.9); Hematocrit 35.7 % (36.0-45.0); Lymphocytes % 9.3 % (15.3-44.8); MCV 87.4 fL (80-100); MPV 8.3 fL (7.6-11.3); RBC Red Blood Cell Count 4.08 M/uL (3.86-4.86)
[2022-04-17 08:38] LABS: Protime INR 1.11
--- NOTE | 2022-04-17 08:39 | RAD REPORT ---
EXAM DESCRIPTION: RAD - Chest Single View - 04/17/2022 8:31 am CLINICAL HISTORY: COUGH Chest pain. COMPARISON: Abdomen 1 View (KUB) dated 04/11/2022; Chest Single View dated 10/03/2021; Chest Single Vi ew dated 09/07/2021; Chest Single View dated 07/04/2021; Angio Aorta For Dissection dated 10/03/2021 FINDINGS: Portable technique limits examination quality. The lungs are grossly clear. The heart is normal in size. No displaced fractures.Sternotomy wires. IMPRESSION: No acute intrathoracic process suspected.
--- NOTE | 2022-04-17 08:49 | RAD REPORT ---
EXAM DESCRIPTION: CT - Abdomen Pelvis Wo Contrast - 04/17/2022 8:38 am CLINICAL HISTORY: Abdominal pain. Abdominal pain, acute, nonlocalized COMPARISON: Abdomen Pelvis W Contrast dated 09/15/2021 TECHNIQUE: CT imaging of the abdomen and pelvis was performed without contrast. Solid organ, bowel a nd vascular assessment is limited due to lack of IV and oral contrast. All CT scans are performed using dose optimization technique as appropriate and may include automated exposure control or mA/KV adjustment according to patient size. FINDINGS: Small opacity in the medial left lung base is present. The liver, spleen, pancreas, adrenal glands are within normal limits for a limited non-contrast exami nation.Small caliceal stones are present in the significance without hydronephrosis. Significant dist ention of the urinary bladder. No bowel obstruction, free air, free fluid or abscess. Atherosclerosis is present. The appendix is no rmal. The osseous structures are within normal limits. 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 Small bilateral nephrolithiasis. Small opacity medial left lung base probably a small area of infiltrate or aspiration. A limited non-contrast examination was performed as detailed.
[2022-04-17 08:51] LABS: Albumin 2.7 g/dL (3.4-5.0); Bilirubin Total 0.6 mg/dL (0.2-1.0); Magnesium 1.5 mg/dL (1.8-2.4); Protein, Total 8.6 g/dL (6.4-8.2)
[2022-04-17 08:55] LABS: Albumin 2.6 g/dL (3.4-5.0); Bilirubin Direct 0.2 mg/dL (0-0.2); Bilirubin Total 0.7 mg/dL (0.2-1.0); Protein, Total 8.5 g/dL (6.4-8.2); Troponin High Sensitivity 22.8 pg/mL (<58.9)
--- NOTE | 2022-04-17 09:16 | ER ---
Nurse's Notes [facility] Name: Karen Shah Age: 51 yrs Sex: Female : 1970 Arrival Date: 04/17/2022 Time: 05:32 Bed 4 Private MD: Diagnosis: Pneumonia due to other specified bacteria-left lower , aspiration;Type 1 diabetes mellitus with hyperglycemia;Vomiting;Weakness;Retention of urine, unspecified;Hypomagnesemia Presentation: 04/17 06:12 Chief complaint: Patient states: "I got release on from here. On Monday I got tw5 released and then for the past two days I have been throwing. I am a real bad diabetic. I recently had my other leg amputated.". Coronavirus screen: Vaccine status: Patient reports receiving the 2nd dose of the covid vaccine. Unknown. Ebola Screen: Patient negative for fever greater than or equal to 101.5 degrees Fahrenheit, and additional compatible Ebola Virus Disease symptoms Patient denies exposure to infectious person. Patient denies travel to an Ebola-affected area in the 21 days before illness onset. Initial Sepsis Screen: Does the patient meet any 2 criteria? No. Patient's initial sepsis screen is negative. Does the patient have a suspected source of infection? Yes: Acute abdominal pain. Risk Assessment: Do you want to hurt yourself or someone else? Patient reports no desire to harm self or others. Onset of symptoms was April 14, 2022. 06:12 Method Of Arrival: Wheelchair tw5 06:12 Acuity: ARIEL 3 tw5 Triage Assessment: 06:14 General: Appears uncomfortable, Behavior is calm, cooperative, appropriate for age. tw5 Pain: Complains of pain in " My stump." Pain currently is 1. out of 10 on a pain scale. GI: Reports nausea, vomiting. 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 - Social history:: Smoking status: Patient/guardian denies using tobacco, Stopped _ months ago 1. Screenin:15 Abuse screen: Denies threats or abuse. Denies injuries from another. Nutritional kc6 screening: No deficits noted. Tuberculosis screening: No symptoms or risk factors identified. 13:21 Fall Risk Secondary diagnosis (15 points) impaired mobility, IV access (20 points). jd3 Ambulatory Aid- None/Bed Rest/Nurse Assist (0 pts). Gait- Normal/Bed Rest/Wheelchair (0 pts) Mental Status- Oriented to own ability (0 pts). Total Mccall Fall Scale indicates Low Risk Score (25-44 pts). Fall prevention measures have been instituted. Side Rails Up X 2 Placed close to Nursing Station Frequent Obs/Assesments occuring Family Present and informed to notify staff if they need to leave bedside As available Patient and Family Educated on Fall Prevention Program and strategies. Assessment: 10:08 General: Appears in no apparent distress. uncomfortable, Behavior is calm, cooperative, kc6 appropriate for age. Pain: Complains of pain in umbilical area and suprapubic area Pain does not radiate. Pain currently is 10 out of 10 on a pain scale. Quality of pain is described as sharp, Pain began gradually, Is continuous, Alleviated by nothing. Aggravated by eating, drinking, Noted to be crying, Also complains of nausea. Neuro: Beltrán Agitation-Sedation Scale (RASS): 0 - Alert and Calm Level of Consciousness is awake, alert, obeys commands, Oriented to person, place, time, situation, Appropriate for age. Cardiovascular: Heart tones S1 S2 present Capillary refill < 3 seconds. Respiratory: Airway is patent Trachea midline Respiratory effort is even, unlabored, Respiratory pattern is regular, symmetrical, Breath sounds are clear bilaterally. GI: Abdomen is flat, non-distended, Bowel sounds present X 4 quads. Abd is soft X 4 quads Abdomen is tender to palpation in umbilical area and suprapubic area Reports lower abdominal pain, intolerance of fluids, intolerance of food, nausea, vomiting, Patient currently denies diarrhea. : Bladder is distended Reports inability to void. EENT: No signs and/or symptoms were reported regarding the EENT system. Derm: Skin is intact, Skin is pink, warm \\T\\ dry. Derm: recent left BKA. dressing is clean, dry and intact without redness, swelling, or drainage. Musculoskeletal: Amputation of right leg and left leg. Circulation, motion, and sensation intact. Capillary refill < 3 seconds, Range of motion: intact in all extremities. 11:00 Reassessment: Patient appears in no apparent distress at this time. No changes from jd3 previously documented assessment. Patient and/or family updated on plan of care and expected duration. Pain level reassessed. Patient is alert, oriented x 3, equal unlabored respirations, skin warm/dry/pink. 12:00 Reassessment: Patient appears in no apparent distress at this time. No changes from jd3 previously documented assessment. Patient and/or family updated on plan of care and expected duration. Pain level reassessed. Patient is alert, oriented x 3, equal unlabored respirations, skin warm/dry/pink. 13:00 Reassessment: Patient appears in no apparent distress at this time. No changes from jd3 previously documented assessment. Patient and/or family updated on plan of care and expected duration. Pain level reassessed. Patient is alert, oriented x 3, equal unlabored respirations, skin warm/dry/pink. 13:44 Reassessment: please refer to [facility] for further charting. kc6 Vital Signs: 06:12 BP 140 / 95; Pulse 105; Resp 18; Temp 98.6; Pulse Ox 100% ; Weight 54.43 kg; Height 5 tw5 ft. 4 in. (162.56 cm); Pain 10/10; 06:12 Body Mass Index 20.60 (54.43 kg, 162.56 cm) tw5 ED Course: 05:32 Patient arrived in ED. rg4 06:14 Triage completed. tw5 06:14 Arm band placed on. tw5 07:06 Isidro Villa MD is Attending Physician. chasity 08:06 Aixa Melo RN is Primary Nurse. kc6 08:25 Inserted saline lock: 20 gauge in right ,using aseptic technique. 20 gauge, 10 cm ss POWERGLIDE inserted to R upper arm VIA ultrasound guided. Good blood return noted. Flushes easily. Pt tolerated well. 08:33 XRAY Chest (1 view) In Process Unspecified. EDMS 08:40 CT Abd/Pelvis - Without Contrast In Process Unspecified. EDMS 09:13 Richard Harvey MD is Hospitalizing Provider. [facility] 10:08 Ríos cath inserted, using sterile technique, 16 Fr., by me, balloon inflated, to kc6 gravity drainage, clamped. 13:22 Patient has correct armband on for positive identification. Placed in gown. Bed in low jd3 position. Call light in reach. Side rails up X2. Adult w/ patient. Client placed on continuous cardiac and pulse oximetry monitoring. NIBP monitoring applied. vehicle monitor technician on. Pulse ox on. NIBP on. Warm blanket given. 13:43 No provider procedures requiring assistance completed. Patient admitted, IV remains in kc6 place. Administered Medications: 10:06 Drug: Insulin Regular Human 8 units {Co-Signature: tavon (Mike Claros RN).} Route: kc6 IVP; Site: right antecubital; 11:00 Follow up: Response: No adverse reaction jd3 10:06 Drug: Semglee 100 unit/mL 25 units Route: Sub-Q; Site: right upper arm; [facility] 11:00 Follow up: Response: No adverse reaction jd3 10:07 Drug: NS 0.9% 1000 ml Route: IV; Rate: 1000 ml; Site: right antecubital; [facility] 11:00 Follow up: Response: No adverse reaction; IV Status: Completed infusion; IV Intake: jd3 1000ml 10:07 Drug: Zofran (Ondansetron) 4 mg Route: IVP; Site: right antecubital; 6 11:00 Follow up: Response: No adverse reaction jd3 10:07 Drug: Reglan (metoCLOPramide) 10 mg Route: IVP; Site: right antecubital; 6 11:00 Follow up: Response: No adverse reaction jd3 10:07 Drug: Pepcid (famotidine) 20 mg Route: IVP; Site: right antecubital; [facility] 11:00 Follow up: Response: No adverse reaction jd3 10:07 Drug: Magnesium Sulfate 1 grams Route: IVPB; Infused Over: 1 hrs; Site: right kc6 antecubital; 11:00 Follow up: Response: No adverse reaction; IV Status: Completed infusion; IV Intake: jd3 100ml 16:21 Drug: Zosyn (piperacillin-tazobactam) 3.375 grams Route: IVPB; Infused Over: 60 mins; kc6 Site: right antecubital; Medication: 13:21 VIS not applicable for this client. jd3 Intake: 11:00 IV: 1000ml; Total: 1000ml. jd3 11:00 IV: 100ml; Total: 1100ml. jd3 Outcome: 09:15 Decision to Hospitalize by Provider. chasity 13:44 Admitted to Med/surg accompanied by tech, via stretcher, with chart. [facility] 13:44 Condition: stable 13:44 Instructed on the need for admit. 21:25 Patient left the ED. jb4 Signatures: Dispatcher [employer] EDIsidro Bosch MD MD cha Smirch, Shelby, RN RN Mable Mcnulty rg4 Ezequiel Infante RN RN jb4 Mike Claros RN RN jAlyssa Arizmendi twAixa Christensen RN RN kc6 Mike montes de oca
--- NOTE | 2022-04-17 09:16 | EDPHYS ---
Physician Documentation [facility] Name: Karen Shah Age: 51 yrs Sex: Female : 1970 Arrival Date: 04/17/2022 Time: 05:32 Bed 4 Private MD: ED Physician Isidro Villa HPI: 04/17 07:54 This 51 yrs old Female presents to ER via Wheelchair with complaints of chasity Abdominal Pain, Nausea/Vomiting. 07:54 The patient presents to the emergency department with nausea, vomiting, that is chasity intermittent. 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 - Social history:: Smoking status: Patient/guardian denies using tobacco, Stopped _ months ago 1. ROS: 07:54 Constitutional: Negative for fever, chills, and weight loss, Eyes: Negative for injury, chasity pain, redness, and discharge, ENT: Negative for injury, pain, and discharge, Neck: Negative for injury, pain, and swelling, Cardiovascular: Negative for chest pain, palpitations, and edema, Respiratory: Negative for shortness of breath, cough, wheezing, and pleuritic chest pain, Back: Negative for injury and pain, : Negative for injury, bleeding, discharge, and swelling, MS/Extremity: Negative for injury and deformity, Skin: Negative for injury, rash, and discoloration, Neuro: Negative for headache, weakness, numbness, tingling, and seizure, Psych: Negative for depression, anxiety, suicide ideation, homicidal ideation, and hallucinations, Allergy/Immunology: Negative for hives, rash, and allergies, Endocrine: Negative for neck swelling, polydipsia, polyuria, polyphagia, and marked weight changes, Hematologic/Lymphatic: Negative for swollen nodes, abnormal bleeding, and unusual bruising. 07:54 Abdomen/GI: Positive for abdominal pain, nausea and vomiting, nausea, vomiting. Exam: 07:54 Constitutional: This is a well developed, well nourished patient who is awake, alert, chasity and in no acute distress. Head/Face: Normocephalic, atraumatic. Eyes: Pupils equal round and reactive to light, extra-ocular motions intact. Lids and lashes normal. Conjunctiva and sclera are non-icteric and not injected. Cornea within normal limits. Periorbital areas with no swelling, redness, or edema. ENT: Nares patent. No nasal discharge, no septal abnormalities noted. Tympanic membranes are normal and external auditory canals are clear. Oropharynx with no redness, swelling, or masses, exudates, or evidence of obstruction, uvula midline. Mucous membranes moist. Neck: Trachea midline, no thyromegaly or masses palpated, and no cervical lymphadenopathy. Supple, full range of motion without nuchal rigidity, or vertebral point tenderness. No Meningismus. Chest/axilla: Normal chest wall appearance and motion. Nontender with no deformity. No lesions are appreciated. Cardiovascular: Regular rate and rhythm with a normal S1 and S2. No gallops, murmurs, or rubs. Normal PMI, no JVD. No pulse deficits. Respiratory: Lungs have equal breath sounds bilaterally, clear to auscultation and percussion. No rales, rhonchi or wheezes noted. No increased work of breathing, no retractions or nasal flaring. Back: No spinal tenderness. No costovertebral tenderness. Full range of motion. Female : Normal external genitalia. Skin: Warm, dry with normal turgor. Normal color with no rashes, no lesions, and no evidence of cellulitis. MS/ Extremity: Pulses equal, no cyanosis. Neurovascular intact. Full, normal range of motion. Neuro: Awake and alert, GCS 15, oriented to person, place, time, and situation. Cranial nerves II-XII grossly intact. Motor strength 5/5 in all extremities. Sensory grossly intact. Cerebellar exam normal. Normal gait. Psych: Awake, alert, with orientation to person, place and time. Behavior, mood, and affect are within normal limits. 07:54 Abdomen/GI: Inspection: abdomen appears normal, Bowel sounds: normal, in all quadrants, Palpation: abdomen is soft and non-tender, Liver: no appreciated palpable abnormalities, Hernia: not appreciated. 07:58 Musculoskeletal/extremity: ROM: intact in all extremities, full active range of motion, chasity full passive range of motion, Circulation is intact in all extremities. Sensation intact. Compartment Syndrome exam of affected extremity: is normal. no pain, no numbness, DVT Exam: no swelling, negative Homans' sign noted on exam, no appreciated bluish discoloration, no erythema, no increased warmth, pain, tenderness. 08:06 ECG was reviewed by the Attending Physician. chasity Vital Signs: 06:12 BP 140 / 95; Pulse 105; Resp 18; Temp 98.6; Pulse Ox 100% ; Weight 54.43 kg; Height 5 tw5 ft. 4 in. (162.56 cm); Pain 10/; 06:12 Body Mass Index 20.60 (54.43 kg, 162.56 cm) tw5 MDM: 07:06 Patient medically screened. chasity 07:56 Differential diagnosis: Nonspecific abd pain, gastritis, pancreatitis, diverticulitis, chasity viral gastroenteritis, gastroenteritis. Data reviewed: vital signs, nurses notes, lab test result(s), EKG, radiologic studies, CT scan, plain films. Data interpreted: desk monitor: rate is 105 beats/min, rhythm is regular, Pulse oximetry: on room air is 100 %. Test interpretation: by ED physician or midlevel provider: ECG, plain radiologic studies. Counseling: I had a detailed discussion with the patient and/or guardian regarding: the historical points, exam findings, and any diagnostic results supporting the discharge/admit diagnosis, lab results, radiology results. 04/17 06:24 Order name: CBC with Diff; Complete Time: 09: [facility] 04/17 06:24 Order name: CMP; Complete Time: 09: [facility] 04/17 06:24 Order name: Magnesium; Complete Time: 09: [facility] 04/17 06:24 Order name: Urine Microscopic Only [facility] 04/17 07:16 Order name: LFT's; Complete Time: 09: [facility] 04/17 07:16 Order name: NT PRO-BNP; Complete Time: 09: [facility] 04/17 07:16 Order name: PT-INR; Complete Time: 09: [facility] 04/17 07:16 Order name: Troponin HS; Complete Time: 09: [facility] 04/17 09:11 Order name: Lactate w/ 2H reflex if indic. [facility] 04/17 09:11 Order name: Blood Culture Adult (2) [facility] 04/17 09:16 Order name: SARS RAPID eb 04/17 09:46 Order name: CBC with Automated Diff EDMS 04/17 09:46 Order name: CBC with Automated Diff EDMS 04/17 07:16 Order name: XRAY Chest (1 view); Complete Time: 09:09 [facility] 04/17 07:54 Order name: CT Abd/Pelvis - Without Contrast; Complete Time: 09:09 [facility] 04/17 09:46 Order name: Comprehensive Metabolic Panel EDMA 04/17 09:46 Order name: Comprehensive Metabolic Panel EDMS 04/17 10:15 Order name: Urine Dipstick-Ancillary EDMA 04/17 11:59 Order name: Glucose, Ancillary Testing EDMA 04/17 20:49 Order name: Lactate Sepsis 2 HR Follow-up EDMA 04/17 06:24 Order name: Urine Dipstick-Ancillary (obtain specimen); Complete Time: 10:16 [facility] 04/17 06:24 Order name: Glucose Level; Complete Time: 09:19 [facility] 04/17 07:16 Order name: EKG; Complete Time: 07:17 [facility] 04/17 07:16 Order name: Cardiac monitoring; Complete Time: 07:17 [facility] 04/17 07:16 Order name: EKG - Nurse/Tech; Complete Time: 08:06 [facility] 04/17 07:16 Order name: IV Saline Lock; Complete Time: 08:21 [facility] 04/17 07:16 Order name: Labs collected and sent; Complete Time: 08:06 [facility] 04/17 07:16 Order name: O2 Per Protocol; Complete Time: 07:17 [facility] 04/17 07:16 Order name: O2 Sat Monitoring; Complete Time: 07:17 [facility] 04/17 08:04 Order name: Labs - recollect needed: recollect green and blue top per Rekha; Complete eb Time: 08:21 04/17 09:11 Order name: Ríos; Complete Time: 10:07 [facility] 04/17 09:46 Order name: Full Liquid EDMS EC:06 Rate is 107 beats/min. Rhythm is regular. QRS [place] is Normal. MS interval is normal. [facility] QRS interval is normal. QT interval is normal. No Q waves. T waves are Normal. No ST changes noted. Clinical impression: Sinus tachycardia and No evidence of ischemia. Interpreted by me. Reviewed by me. Administered Medications: 10:06 Drug: Insulin Regular Human 8 units {Co-Signature: tavon (Mike Claros RN).} Route: kc6 IVP; Site: right antecubital; 11:00 Follow up: Response: No adverse reaction jd3 10:06 Drug: Semglee 100 unit/mL 25 units Route: Sub-Q; Site: right upper arm; kc6 11:00 Follow up: Response: No adverse reaction jd3 10:07 Drug: NS 0.9% 1000 ml Route: IV; Rate: 1000 ml; Site: right antecubital; 6 11:00 Follow up: Response: No adverse reaction; IV Status: Completed infusion; IV Intake: jd3 1000ml 10:07 Drug: Zofran (Ondansetron) 4 mg Route: IVP; Site: right antecubital; kc6 11:00 Follow up: Response: No adverse reaction jd3 10:07 Drug: Reglan (metoCLOPramide) 10 mg Route: IVP; Site: right antecubital; kc6 11:00 Follow up: Response: No adverse reaction jd3 10:07 Drug: Pepcid (famotidine) 20 mg Route: IVP; Site: right antecubital; kc6 11:00 Follow up: Response: No adverse reaction jd3 10:07 Drug: Magnesium Sulfate 1 grams Route: IVPB; Infused Over: 1 hrs; Site: right kc6 antecubital; 11:00 Follow up: Response: No adverse reaction; IV Status: Completed infusion; IV Intake: jd3 100ml 16:21 Drug: Zosyn (piperacillin-tazobactam) 3.375 grams Route: IVPB; Infused Over: 60 mins; [facility] Site: right antecubital; Disposition Summary: 04/17/22 09:15 Hospitalization Ordered Hospitalization Status: Inpatient Admission chasity Provider: Richard Harvey cha Condition: Fair chasity Problem: new chasity Symptoms: have improved chasity Bed/Room Type: Standard chasity Location: Telemetry/MedSurg (Inpatient)(04/17/22 19:39) mw Room Assignment: 214(04/17/22 19:59) mw Diagnosis - Pneumonia due to other specified bacteria - left lower , aspiration chasity - Type 1 diabetes mellitus with hyperglycemia chasity - Vomiting chasity - Weakness chasity - Retention of urine, unspecified chasity - Hypomagnesemia chasity Discharge Instructions: - Discharge Summary Sheet chasity - Abdominal Pain, Adult chasity - Dehydration, Adult chasity - Abdominal Pain, Adult, [id number] chasity - Dehydration, Adult, [id number] chasity Forms: - Medication Reconciliation Form chasity - SBAR form [facility] Prescriptions: - Zofran 4 mg Oral Tablet - take 1 tablet by ORAL route every 12 hours As needed; 20 tablet; Refills: 0, chasity Product Selection Permitted - promethazine 25 mg Oral Tablet - take 1 tablet by ORAL route every 6 hours As needed; 20 tablet; Refills: 0, chasity Product Selection Permitted Signatures: Dispatcher [employer] EDMS Alondra Amato RN RN mw Anderson, Corey, MD MD cha Botello, Elizabeth eb Wood, Tiffany tw5 Arpita Nixon MD MD sd2 Aixa Melo RN RN kc6 Mike Claros RN jd3 Mike Claros RN jd3 Corrections: (The following items were deleted from the chart) 07:49 07:16 BASIC METABOLIC PANEL+C.LAB.BRZ ordered. EDMS EDMS 08:17 07:20 Abdomen Pelvis W Con+CT.RAD.BRZ ordered. EDMS EDMS 12:21 09:15 Telemetry/MedSurg (Inpatient) chasity eb 12:21 09:15 chasity eb 19:39 12:21 BR ER HOLD eb mw 19:39 12:21 ERHOLD- eb mw 19:59 19:39 mw mw
[2022-04-17] MEDS ORDERED: INSULIN GLARGINE 100 UNIT/ML SQ ONE (09:32)
[2022-04-17] MEDS ORDERED: METOCLOPRAMIDE 10 MG/2mL INJ ONE (09:32)
[2022-04-17] MEDS ORDERED: ONDANSETRON 4 MG/2 ML VIAL ONE ×2 (09:33→15:59)
[2022-04-17] MEDS ORDERED: INSULIN -REGULAR HUMAN 50 UNIT/0.5 ML ML ONE ×2 (09:34→11:55)
[2022-04-17] MEDS ORDERED: MAGNESIUM SULFATE 1 gm IVPB 1 GM/100 ML BAG IV ONE (09:34)
[2022-04-17] MEDS ORDERED: NA CHLORIDE 0.9% 100 ML IV ONE (09:34)
[2022-04-17] MEDS ORDERED: FAMOTIDINE 20 MG/2 ML VIAL IV ONE (09:35)
[2022-04-17] MEDS ORDERED: PIPERACIL/TAZO 3.375 GM VIAL IV ONE (09:35)
[2022-04-17] MEDS ORDERED: ACETAMINOPHEN 500 MG TAB PO PRN (09:42)
[2022-04-17] MEDS ORDERED: ONDANSETRON 4 MG/2 ML VIAL IV PRN ×2 (09:42→18:28)
--- NOTE | 2022-04-17 09:49 | P.HP ---
Certification for Inpatient Patient admitted to: Observation With expected LOS: <2 Midnights Practitioner: I am a practitioner with admitting privileges, knowledge of patient current condition, hospital course, and medical plan of care. Services: Services provided to patient in accordance with Admission requirements found in Title 42 Section 412.3 of the Code of Federal Regulations Patient History Date of Service: 04/17/22 Reason for admission: Nausea vomiting urinary abdominal distention History of Present Illness: Patient is 51 years of age admitted with acute onset of nausea vomiting denies any abdominal discomfort or discomfort she has significant history of coronary artery disease former smoker peripheral vascular disease bilateral lower extremity amputations feeling very uncomfortable also a diabetic Allergies tramadol Allergy (Mild, Verified 12/29/18 21:16) Hives/Rash adhesive tape Allergy (Verified 12/30/18 02:54) Hives ketorolac [From Toradol] Allergy (Verified 12/29/18 21:16) Hives/Rash Home Medications: Clopidogrel Bisulfate [Plavix] 75 mg PO DAILY #30 tablet 05/16/17 Gabapentin 800 mg PO TID 07/18/20 Aspirin [Vazalore] 81 mg PO DAILY 10/04/21 Atorvastatin Calcium [Lipitor] 80 mg PO BEDTIME 10/04/21 Mirtazapine 15 mg PO BEDTIME 10/04/21 Acetaminophen [Tylenol Extra Strength] 500 mg PO Q4H PRN 04/05/22 Baclofen 5 mg PO BID 04/05/22 Ezetimibe [Zetia] 10 mg PO DAILY 04/05/22 Hydrocodone 5/APAP 325 [[place] 5/325*] 1 tab PO Q4H PRN 04/05/22 Melatonin 3 mg PO BEDTIME PRN 04/05/22 Ondansetron [Zofran (Odt)*] 4 mg PO Q8H PRN 04/05/22 Pantoprazole Sodium [Protonix] 40 mg PO DAILY 04/05/22 Semaglutide [Ozempic] 0.25 mg SQ SEECOM 04/05/22 Sennosides/Docusate Sodium [Senna-S Tablet] 2 tab PO BEDTIME 04/05/22 Apixaban [Eliquis *] 2.5 mg PO BID #60 04/13/22 Calcium Carbonate/Vitamin D3 [Oscal 500 + Vit D 200 Iu Tab*] 1 tab PO DAILY #30 tab 04/13/22 Cyanocobalamin [Vitamin B-12*] 1,000 mcg PO DAILY #30 tab 04/13/22 Ferrous Sulfate [Ferrous Sulfate*] 325 mg PO BID #60 tab 04/13/22 Furosemide [Lasix*] 20 mg PO DAILY PRN #30 tab 04/13/22 Hydrocodone 5/APAP 325 [[place] 5/325*] 1 tab PO Q4H PRN tab 04/13/22 Lidocaine 4% Patch [Lidoderm 5% Patch*] 1 patch TOP DAILY patch 04/13/22 Loperamide [Imodium*] 4 mg PO Q4H PRN cap 04/13/22 Megestrol [Megace*] 40 mg PO DAILY #30 tab 04/13/22 Melatonin [Melatonin*] 3 mg PO BEDTIME PRN PRN 04/13/22 Metoprolol Succinate [Toprol Xl*] 25 mg PO DAILY #30 tab 04/13/22 Nitroglycerin [Nitrostat*] 0.4 mg SL UD PRN tab 04/13/22 PE-Ep/Mo/Slov/Pet [Formulation R*] 1 appl [place] BID PRN #1 tube 04/13/22 Potassium Oral Tab [Klor-Con 10 mEq Tab*] 10 meq PO DAILY #30 tab 04/13/22 Insulin 70/30 NPH/Reg Human [Novolin 70/30*] 26 unit SQ BIDWM #1 ml 04/14/22 - Past Medical/Surgical History Diabetic: Yes -: Coronary artery disease -: Type 2 Diabtes- Insulin Dependent -: Chronic systolic congestive heart failure -: Hypertension -: CVA -: PAD -: Hypertension -: GERD -: chf -: recurrent yeast infection -: triple bypass (heart) 2012 -: 2 C-Sections -: double bypass 2015 -: 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 -: Below knee amputation 2014 -: Above knee amputation 2014 -: Eye surgery for detached retina 2015 Psychosocial/ Personal History: Patient lives at home with her family - Family History Father -: Heart disease, Hypertension, Diabetes Notes: Pt's father of an PR Mother -: Other (see notes) Notes: hyperlipidemia Brother -: Diabetes Notes: Brother recently diagnosed in 2016 Sister -: Hypertension - Social History Alcohol use: No CD- Drugs: Yes Caffeine use: No Review of Systems 10-point ROS is otherwise unremarkable General: Weakness Gastrointestinal: Nausea, Vomiting Physical Examination - Vital Signs Temperature: 98.6 F Blood Pressure: 140/95 Pulse: 105 Respirations: 18 Pulse Ox (%): 100 - Physical Exam General: Alert, Oriented x3, Cachectic, Mild distress Respiratory: Clear to auscultation bilaterally, Friction rub Cardiovascular: Regular rate/rhythm, Normal S1 S2 Gastrointestinal: Normal bowel sounds, Soft and benign, No tenderness Musculoskeletal: No clubbing, No swelling Integumentary: No rashes, No breakdown Neurological: Normal speech, Normal strength at 5/5 x4 extr - Studies Laboratory Data (last 24 hrs) 04/17/22 08:19: PT 12.2, INR 1.11 04/17/22 08:19: Sodium Cancelled, Potassium Cancelled, BUN Cancelled, Creatinine Cancelled, Glucose Cancelled, Total Bilirubin 0.7, AST 11 L, ALT 15, Alkaline Ph osphatase 149 H 04/17/22 08:19: Sodium 133 L, Potassium 5.0, BUN 20 H, Creatinine 1.14, Glucose 348 H, Magnesium 1.5 L, Total Bilirubin 0.6, AST 8 L, ALT 16, Alkaline Phosphat ase 150 H 04/17/22 07:35: WBC 12.40 H, Hgb 11.5 L, Hct 35.7 L, Plt Count 689 H Assessment and Plan - Problems (Diagnosis) (1) Nausea & vomiting Current Visit: Yes Status: Acute Plan: Patient is 51 years of age admitted with acute onset of nausea and vomiting early gastroenteritis may be from a viral infection and to keep her n.p.o. try some liquid diet IV fluids nausea relief Accu-Cheks sliding scales labs reviewed no evidence of any infection bladder is distended we will try catheter low magnesium chest x-ray is clear abdominal CT scan reviewed alkaline phosphatase and BNP elevated - Advance Directives Does patient have a Living Will: No Does patient have a Durable POA for Healthcare: No
[2022-04-17] MEDS: NA CHLORIDE 0.9% 1,000 ML IV SCH ×2 (10:00→23:13)
[2022-04-17 10:12] LABS: SARS-CoV-2 Antigen Rapid Res Negative (Negative)
[2022-04-17 10:14] LABS: Urine Blood Trace-intact (Negative); Urine Glucose 2+ (Negative); Urine Protein 1+ (Negative); Urine Specific Gravity 1.015 (1.005-1.030)
[2022-04-17 11:15] LABS: Urine Mucus Slight /HPF (None Seen); Urine RBC <5 /HPF (None Seen)
[2022-04-17] MEDS: INSULIN -REGULAR HUMAN 50 UNIT/0.5 ML ML SQ SCH ×3 (11:30→23:14)
[2022-04-17] MEDS ORDERED: INFLUENZA VACCINE (for 6+ mo) 0.5 ML DOSE IMVAC ONE (14:00)
[2022-04-17] MEDS ORDERED: ACETAMINOPHEN 500 MG TAB ONE (15:59)
[2022-04-17] MEDS ORDERED: BISACODYL E.C. 5 MG TAB PO PRN (18:27)
[2022-04-17] MEDS ORDERED: PROMETHAZINE INJ 25 MG/ML AMP IV PRN (18:28)
[2022-04-17] MEDS ORDERED: HYDROCODONE/APAP 5/325 MG TAB ONE (20:19)
[2022-04-17] MEDS: HYDROCODONE/APAP 5/325 MG TAB PO PRN (20:23)
[2022-04-18 01:14] VITALS: BMI 26.4
[2022-04-18] MEDS: HYDROCODONE/APAP 5/325 MG TAB PO PRN (02:46)
[2022-04-18 06:26] LABS: Albumin 2.2 g/dL (3.4-5.0); Bilirubin Total 0.3 mg/dL (0.2-1.0); Hematocrit 29.8 % (36.0-45.0); Lymphocytes % 24.9 % (15.3-44.8); Potassium 3.7 mmol/L (3.5-5.1); Protein, Total 6.9 g/dL (6.4-8.2); RBC Red Blood Cell Count 3.43 M/uL (3.86-4.86)
[2022-04-18] MEDS: INSULIN -REGULAR HUMAN 50 UNIT/0.5 ML ML SQ SCH ×2 (07:30→11:30)
[2022-04-18] MEDS: NA CHLORIDE 0.9% 1,000 ML IV SCH (09:07)
--- NOTE | 2022-04-18 14:53 | P.DS ---
Admission Date: 04/17/22 Discharge Date: 04/18/22 Disposition: ROUTINE DISCHARGE Discharge Condition: GOOD Reason for Admission: Nausea vomiting urinary abdominal distention Consultations: 1. Urology Hospital Course: DIAGNOSES: # Significant Urinary Retention suspect secondary to Neurogenic Bladder s/p Ríos Catheter Placement # Poorly Controlled Type I Diabetes Mellitus # S/P Bilateral Lower Extremity Amputations # Coronary Artery Disease s/p CABG # Chronic Compensated Systolic Congestive Heart Failure # History of Cerebrovascular Accident # Peripheral Artery Disease # Hypertension # Hyperlipidemia # Seizure Disorder # Gastroesophageal Reflux Disease HOSPITAL COURSE: Ms. Nicci Shah is a 51 year old female with a past medical history significant for coronary artery disease s/p CABG, type 1 diabetes mellitus, chronic systolic congestive heart failure, prior cerebrovascular accident, peripheral arterial disease, bilateral lower extremity amputations, hypertension, hyperlipidemia, and seizure disorder who was admitted to the [facility] on 04/17/2022 for abdominal pain, nausea, and vomiting. She was admitted to the Medicine service. Upon further evaluation, her chest x- ray revealed, "no acute intrathoracic process suspected." Her CT abdomen/pelvis revealed, "significant distention of the urinary bladder is present which could indicate bladder outlet obstruction atonic bladder. Small bilateral nephrolithiasis. Small opacity medial left lung base probably a small area of infiltrate or aspiration. A limited non-contrast examination was performed as detailed." A Ríos catheter was placed in the emergency department, and per nursing staff, nearly 2 L of urine was removed. Shortly after the Ríos catheter was placed, she reported complete resolution of her symptoms. She states that she feels well and at her baseline. She endorses anxiety with being discharged home with a Ríos catheter. Urology consulted and spoke with Dr. Van. He stated that given the degree of her urinary retention, he would not recommend any procedures for at least 2 weeks. He advised that we discharge her with the Ríos catheter and have her schedule follow-up with him in about 2 weeks. I discussed these recommendations with her and her (Mr. Gerardo) in detail, and they agreed. Additionally, there was a small opacity in the medial left lung base noted on the CT chest. She did not display any evidence of pneumonia, particularly denying fevers, chills, shortness of breath, cough, or chest pain. She was advised to follow this up with surveillance imaging with her PCP at [facility]. On 04/18/2022, she was seen on morning rounds and deemed medically stable for discharge. She was discharged with instructions to schedule follow-up appointments with her PCP ([facility] Shruthi) and with Urology (Dr. Van). She and her were given the opportunity to ask questions and reported no further questions. Furthermore, all questions were answered to the best of my ability. A copy of this discharge summary will be sent to the above providers to facilitate continuity of care. Today, I personally spent 20 minutes on her case, of which greater than 50% of the time was spent in patient education, counseling, and coordination of care as described above. Vital Signs/Physical Exam: Temp Pulse Resp BP Pulse Ox 97.5 F 110 H 18 143/81 H 100 04/18/22 12:00 04/18/22 12:00 04/18/22 12:00 04/18/22 12:00 04/18/22 12:00 General: Alert, In no apparent distress, Oriented x3 HEENT: Atraumatic, PERRLA, Mucous membr. moist/pink, EOMI, Sclerae nonicteric Neck: Supple, JVD not distended Respiratory: Clear to auscultation bilaterally, Normal air movement Cardiovascular: Regular rate/rhythm, Normal S1 S2, No gallops, No rubs, No murmurs Gastrointestinal: Normal bowel sounds, Soft and benign, Non-distended, No tenderness, No rebound, No guarding Musculoskeletal: Other (s/p bilataral AKA) Integumentary: No rashes Neurological: Normal speech, Cranial nerves 3-12 intact, Normal affect Urinary: Ríos catheter Laboratory Data at Discharge: WBC 8.20 K/uL (4.3-10.9) 04/18/22 05:26 Hgb 9.9 g/dL (12.0-15.0) L D 04/18/22 05:26 Hct 29.8 % (36.0-45.0) L 04/18/22 05:26 Plt Count 602 K/uL (152-406) H 04/18/22 05:26 PT 12.2 SECONDS (9.5-12.5) 04/17/22 08:19 INR 1.11 04/17/22 08:19 Sodium 141 mmol/L (136-145) D 04/18/22 05:26 Potassium 3.7 mmol/L (3.5-5.1) D 04/18/22 05:26 BUN 14 mg/dL (7-18) 04/18/22 05:26 Creatinine 0.69 mg/dL (0.55-1.3) 04/18/22 05:26 Glucose 116 mg/dL (74-106) H 04/18/22 05:26 Magnesium 1.5 mg/dL (1.8-2.4) L 04/17/22 08:19 Total Bilirubin 0.3 mg/dL (0.2-1.0) 04/18/22 05:26 AST 10 U/L (15-37) L 04/18/22 05:26 ALT 12 U/L (12-78) 04/18/22 05:26 Alkaline Phosphatase 110 U/L (45-117) D 04/18/22 05:26 Home Medications: Clopidogrel Bisulfate [Plavix] 75 mg PO DAILY #30 tablet 05/16/17 Gabapentin 800 mg PO TID 07/18/20 Aspirin [Vazalore] 81 mg PO DAILY 10/04/21 Atorvastatin Calcium [Lipitor] 80 mg PO BEDTIME 10/04/21 Mirtazapine 15 mg PO BEDTIME 10/04/21 Acetaminophen [Tylenol Extra Strength] 500 mg PO Q4H PRN 04/05/22 Baclofen 5 mg PO BID 04/05/22 Ezetimibe [Zetia] 10 mg PO DAILY 04/05/22 Hydrocodone 5/APAP 325 [[place] 5/325*] 1 tab PO Q4H PRN 04/05/22 Melatonin 3 mg PO BEDTIME PRN 04/05/22 Ondansetron [Zofran (Odt)*] 4 mg PO Q8H PRN 04/05/22 Pantoprazole Sodium [Protonix] 40 mg PO DAILY 04/05/22 Semaglutide [Ozempic] 0.25 mg SQ SEECOM 04/05/22 Sennosides/Docusate Sodium [Senna-S Tablet] 2 tab PO BEDTIME 04/05/22 Apixaban [Eliquis *] 2.5 mg PO BID #60 04/13/22 Calcium Carbonate/Vitamin D3 [Oscal 500 + Vit D 200 Iu Tab*] 1 tab PO DAILY #30 tab 04/13/22 Cyanocobalamin [Vitamin B-12*] 1,000 mcg PO DAILY #30 tab 04/13/22 Ferrous Sulfate [Ferrous Sulfate*] 325 mg PO BID #60 tab 04/13/22 Furosemide [Lasix*] 20 mg PO DAILY PRN #30 tab 04/13/22 Hydrocodone 5/APAP 325 [[place] 5/325*] 1 tab PO Q4H PRN tab 04/13/22 Lidocaine 4% Patch [Lidoderm 5% Patch*] 1 patch TOP DAILY patch 04/13/22 Loperamide [Imodium*] 4 mg PO Q4H PRN cap 04/13/22 Megestrol [Megace*] 40 mg PO DAILY #30 tab 04/13/22 Melatonin [Melatonin*] 3 mg PO BEDTIME PRN PRN 04/13/22 Metoprolol Succinate [Toprol Xl*] 25 mg PO DAILY #30 tab 04/13/22 Nitroglycerin [Nitrostat*] 0.4 mg SL UD PRN tab 04/13/22 PE-Ep/Mo/Slov/Pet [Formulation R*] 1 appl [place] BID PRN #1 tube 04/13/22 Potassium Oral Tab [Klor-Con 10 mEq Tab*] 10 meq PO DAILY #30 tab 04/13/22 Insulin 70/30 NPH/Reg Human [Novolin 70/30*] 26 unit SQ BIDWM #1 ml 04/14/22 Physician Discharge Instructions: 1. Please schedule a follow-up with your PCP ([facility] Shruthi) in 3-5 days - Please have a repeat chest x-ray or chest CT scan to follow-up the spot on your lung 2. Please schedule a follow-up with Urology (Dr. Van) in 2 weeks - He will discuss removal of your Ríos catheter and any potential procedures at that point Diet: ADA Activity: Fall precautions Followup: NONE,NONE [Primary Care Provider] - Mayo Van [ACTIVE - CAN ADMIT] - Time spent managing pt's care (in minutes): 20
[2022-04-18 15:10] VITALS: O2SAT 98
--- NOTE | 2022-04-18 15:31 | EKG ---
Test Date: 2022-04-17 Test Time: 07:57:29 [employer] Machine Operator: JOSE MEASUREMENT RESULTS: Intervals: Rate: 107 NM: 120 QRSD: 78 QT: 388 QTc: 517 [place]: P: 68 NM: 120 QRS: 33 T: 87 INTERPRETIVE STATEMENTS: Sinus tachycardia Anterior infarct, age undetermined T wave abnormality, consider lateral ischemia Abnormal ECG Compared to ECG 03/08/2022 21:50:42 T-wave abnormality now present Possible ischemia now present Sinus rhythm no longer present Myocardial infarct finding still present Electronically Signed On 04-18-22 15:28:46 [employer] TE[employer] by Klaus Thakur
[2022-04-18 18:45] VITALS: BP 134/69; TEMP 97
== END 2022-04-18 18:36 | disposition home health service (06) ==
LOC: ER 05:29 → ERHOLD 09:42 → 2ND 20:35
PROVIDERS: ADMIT Internal Medicine Sleep Medicine; ATTEND Internal Medicine
DX: R33.9 Retention of urine, unspecified (principal); I25.10 Atherosclerotic heart disease of native coronary artery without angina pectoris; I50.22 Chronic systolic (congestive) heart failure; I73.9 Peripheral vascular disease, unspecified; I10 Essential (primary) hypertension; E78.5 Hyperlipidemia, unspecified; G40.909 Epilepsy, unspecified, not intractable, without status epilepticus; K21.9 Gastro-esophageal reflux disease without esophagitis; Z86.73 Personal history of transient ischemic attack (TIA), and cerebral infarction without residual deficits; Z95.1 Presence of aortocoronary bypass graft; Z87.891 Personal history of nicotine dependence; Z89.612 Acquired absence of left leg above knee; Z89.611 Acquired absence of right leg above knee; Z88.6 Allergy status to analgesic agent; Z88.8 Allergy status to other drugs, medicaments and biological substances
CPT/HCPCS: 36415; 51702; 71045; 74176; 80053; 80076; 81003; 81015; 82947; 83605; 83735; 83880; 84484; 85025; 85610; 87040; 87811; 93005; 96365; 96372; 96375; 99285; G0378; J1815; J2405; J2543; J2765; J3475; J7030

== ENCOUNTER 2022-04-19 13:07 | Observation (INO) | payer OTHER ==
--- OUTSIDE RECORDS SUMMARY | 2022-04-19 13:25 | XMS REPORT | Continuity of Care Document ---
:1970 Author Organization [facility] t Address [address] [place] [address] Care Team Providers Name Role Phone Igor BROWN, Rashad Avery Primary Care Physician [phone] ANATOLY FLORES Attending Clinician Unavailable YULIANA CARRASCO Attending Clinician Unavailable STEPHANY DINERO Attending Clinician Unavailable Yuliana Zuñiga Attending Clinician Lisa MURILLO, Garcia A Attending Clinician Unavailable RACHELLE GUTHRIE Attending Clinician Unavailable Marilu Coello Attending Clinician Che Barlow MD Attending Clinician George Barrett DO Attending Clinician Rachelle Guthrie DO Attending Clinician Alden Garcia MD Attending Clinician Tyler BROWN, Ryanne Meadows Attending Clinician [phone] Trace BROWN, Darrel Avery Attending Clinician Carine BROWN, Sharath Attending Clinician Alonso BROWN, Jeff Montero Attending Clinician Luis Benitez DO Attending Clinician KATHI MCBRIDE Attending Clinician Unavailable Anatoly Flores MD Attending Clinician Igor BROWN, Rahsad Avery Attending Clinician Minh CAMERA OPERATOR, Madi Attending Clinician Doctor Unassigned, [place] Attending Clinician Unavailable NEO KNUTSON Attending Clinician Unavailable NEO KNUTSON Attending Clinician Unavailable FABBY RIVERA Attending Clinician Unavailable Fabby Rivera DO Attending Clinician MADI ASTORGA Attending Clinician Unavailable Bang CAMERA OPERATOR, Adeola Attending Clinician Lab, Ang - Db Attending Clinician Unavailable ADEOLA CUENCA Attending Clinician Unavailable RASHAD COSTA Attending Clinician Unavailable Phyllis Daniel RN Attending Clinician Unavailable Celso Duran DO Attending Clinician Gregory BROWN, Lily Attending Clinician LILY JENKINS Attending Clinician Unavailable Marquise DOTSON, Ra Platt Attending Clinician [phone] Han BROWN, Anmol Lara Attending Clinician [phone] Hosea BROWN, Lesia Wright Attending Clinician [phone] Pcp, Patient Does Not Have A Attending Clinician [phone] Vance BROWN, Kathi Attending Clinician Jeanmarie CAMERA OPERATOR, Ronnie F Attending Clinician Melly Giraldo MD Attending Clinician Elyse Aparicio MD Attending Clinician [...] DO Admitting Clinician Ra Leonard Admitting Clinician [phone] Jay England MD Admitting Clinician ERNST BOATENG Admitting Clinician Unavailable RHIANNA ROMANO Admitting Clinician Unavailable Rhianna Romano MD Admitting Clinician Payers Payer Name Policy Type Policy Number Effective Date Expiration Date Vero neal MEDICARE PART A [id number] 2017 \\T\\ B 00:00:00 Problems Condition Condition [...] CAD in CAD in Disease Active Univers [place] 7-05 ity of artery artery 00:00: Medical Branch Hypoglycem Hypoglycem Disease Active U nivers ia ia 6-11 ity of 00:00: 00 Medical Branch 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 5-06 it y of on on 00:00: Medical Branch Poor Poor Disease Active 2021-0 [...] 00:00: [place] involving involving 00 Medi [place] Branch coronary coronary artery of artery of [place] heart heart without without angina angina pectoris [...] Added automatic ally from request for surgery [id number] GERD GERD Disease Active Univers (gastroeso (gastroeso it y of phageal phageal [place] reflux reflux Medical disease) disease) Branch DM DM Disease Active Univers (diabetes (diabetes ity of mellitus) mellitus) [facility] Depression Depression Disease Active U nivers ity of [facility] CVA CVA Disease Active Univers (cerebral (cerebral ity of vascular vascular [place] accident) accident) [facility] Branch CHF CHF Disease Active Univers (congestiv (congestiv it y of e heart e heart [place] failure) failure) [facility] Anxiety Anxiety Disease Active Univers ity of [facility] Angina Angina Disease Active Univers pectoris pectoris ity of [facility] H/O right H/O right Disease Active Uni vers coronary coronary ity of artery artery [place] stent stent Medical placement placement Bran ch Hyperlipid Hyperlipid Disease Active U nivers emia, emia, ity of unspecifie unspecifie [place] d d Medical hyperlipid hyperlipid Br anch emia type emia type Essential Essential Disease Active Uni vers hypertensi hypertensi it [facility], [facility]G Hx of CABG Disease Active U nivers ity of [facility] Migraines Migraines Disease Active Uni vers ity of [facility] Seizures Seizures Disease Active Unive rs ity [facility] Unilateral Unilateral Disease Active U nivers AKA, right AKA, right it y of [facility] High High Disease Active Univers cholestero cholestero it y of l l [facility] HTN HTN Disease Active Univers (hypertens (hypertens it y of ion) ion) [facility] History of History of Problem Active C ommon CVA CVA Spirit (cerebrova (cerebrova - [facility] sc[facility] accident) accident) [facility] Migraine Migraine Problem Active Commo n without without Spirit aura and aura and - [facility] without without St status status [facility]rain[facility]u Me dical s, not s, not Center intractabl intractabl e e 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 - [facility] with with St hyperglyce hyperglyce [facility] 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 - [facility] with other with other St specified specified Luke s complicati complicati Me dical on on Center Hx of CABG Hx of CABG Problem Active C ommon Spirit - [facility] Chronic Chronic Problem Active Common pain pain Spirit disorder disorder - [facility]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 Spirit use of use of - [facility] insulin insulin [facility] Neuropathy Neuropathy Problem Active C rashel Spirit - [facility] Depression Depression Problem Active C rashel with with Spirit anxiety anxiety - [facility] HTN HTN Problem Active Common (hypertens (hypertens Sp kate ion), ion), - [facility] benign benign [facility] Seizures Seizures Problem Active Commo n Spirit - [facility] Coronary Coronary Problem Active Commo n artery artery Spirit disease disease - [facility] involving involving St coronary coronary [facility] bypass bypass Medical graft of graft of [place] heart with heart with angina angina pectoris pectoris Dependent Dependent Problem Active Com mon on on Spirit wheelchair wheelchair - [facility] History of History of Problem Active Heath ikser right right Spirit above knee above knee - [facility] amputation amputation [facility] Allergies, Adverse Reactions, Alerts Allergy [...] Active Info Not Commo n Reaction Available [facility] Toradol Adverse Active Info Not Common Reaction Available [facility] Family History Family Member Diagnosis Comments Start Date Stop Date Source Natural father Diabetes [facility] Natural father Heart [facility] Natural father High cholesterol [facility] Natural father Hypertension Universi ty [facility] Paternal Asthma [place] of grandmother [facility] Natural sister Hypertension Universi ty [facility] Natural son Diabetes [facility] Family member Arthritis [facility] Family member defects Universi ty of [facility] Family member Breast Cancer Universi ty of [facility] Family member Cancer [facility] Family member Colon Cancer Universit y of [facility] Family member Depression [facility] Family member Genetic [facility] Family member Mental retardation Uni versity of [facility] Family member Neurological Universit y of [facility] Family member Osteoporosis Universit y of [facility] Family member Ovarian Cancer Univers ity of [facility] Family member Psychiatry [facility] Family member [facility] Social History Social Habit Start Date Stop Date Quantity Comments Source History of tobacco Passive smoker Un iversity of use [facility] Exposure to 2022-04-04 2022-04-14 Not sure [facility] SARS-CoV-2 (event) 00:00:00 10:59:00 [facility] Alcohol intake 2022-04-14 2022-04-14 Ex-drinker [facility] 00:00:00 00:00:00 (finding) [facility] Cigarettes smoked 2022-03-22 2022-03-22 Univers ity of current (pack per 00:00:00 00:00:00 [place] ) - Reported Branch Tobacco use and 2022-03-22 2022-03-22 Smokeless tobacco Un iversity of exposure 00:00:00 00:00:00 non-user [facility] Tobacco Comment 2022-03-22 2022-03-22 smoking since 12 Uni versity of 00:00:00 00:00:00 years old18 days [place] Il dical with out Branch cigarettes Education 2021-01-15 2021-01-15 12 University of 00:00:00 00:00:00 [facility] History SDOH 2020-05-08 2020-05-08 99 University o f Alcohol Frequency 00:00:00 [facility] SDOH 2020-05-08 2020-05-08 99 University o f Alcohol Std Drinks 00:00:00 00:00:00 [facility] History SDOH 2020-05-08 2020-05-08 99 University o f Alcohol Binge 00:00:00 00:00:00 [facility] Branch Alcohol Comment 2019-10-11 2019-10-11 rare Universit y of 00:00:00 00:00:00 [facility] Sex [birth year] At [birth year] Universit y of 00:00:00 00:00:00 [facility] Smoking Status Start Date Stop Date Source Ex-smoker 2022-03-22 00:00:00 2022-03-22 [facility] Smokes tobacco daily 2020-04-03 00:00:00 [facility] Medications Ordered Filled Start Stop [...] 120 g Minutes, ONCE, 1 dose, On [facility] 03/31/22 at 1245, Routine KCL 2021-05- No 40meq 40 mEq, Univers (KLOR-CON 05-31 Oral, Q2H, ity of M20) tablet 17:00: 20:00 2 doses, [place] 40 mEq 00 :00 First dose Medical on [place] Branch 03/31/22 at 1200, Last dose on [place] 03/31/22 at 1400, Routine HYDROcodone 2021-05 Yes 1{tbl} 1 tablet, Univers -acetaminop 03 Oral, Q4H, it y of hen (NORCO) [...] Yes 500mg 500 mg, Un cali oL 05-30 Oral, QID, ity of (ROBAXIN) 17:00: [place] tablet 500 00 on Wed Medical mg 03/30/22 at Branch 1200, Until Discontinu ed, Routine HYDROcodone 2021-05 Yes 1{tbl} 1 tablet, Univers -acetaminop 05-30 Oral, Q6H, it y of hen (NORCO) 17:00: First dose [place] 10-325 mg 00 on Wed Medical tablet 1 03/30/22 at [...] of water 4 12:30: 14:07 at 25 [place] gram/50 mL 00 :56 mL/hr Medical (8 [...] Slow IV ity of (DILAUDID) 17:41: Push, [place] injection 02 Q5MIN PRN, Medi blanquita 0.2 [...] ity o f 270-150 mL) 13:52: on Mon [place] injection 03/25/22 Medica l at 0852, Branch Until Discontinu ed, Routine, Intra-op lidocaine 2021-05 Yes PRN, Univers 1% (PF) Starting ity of (XYLOCAINE) 12:50: on Mon s injection 03/25/22 Medica l at 0750, Branch Until Discontinu ed, Routine, Intra-op heparin 2021-05 Yes PRN, Univers 10,000 0 Starting ity of units in NS 12:00: on Mon [place] 1000 mL for 03/25/22 Medi blanquita vascular at 0700, Branch Intra-op magnesium 2021-05 No 4g 4 g, IV Univ ers [...] last Branch tablet modificati on) on [place] 03/24/22 at 1200, Until Discontinu ed, Routine HYDROcodone 2021-05 Yes 1{tbl} 1 tablet, Univers -acetaminop 0-27 Oral, Q4H, it y of hen (NORCO 17:00: First dose [place] 5) 5-325 mg 00 (after Medica l tablet 1 last Branch tablet modificati on) on [place] 03/24/22 at 1200, Until Discontinu ed, Routine HYDROcodone 2021-05- No 1{tbl} 1 tablet, Univers -acetaminop 0-27 11-02 Oral, Q4H, i ty of hen (NORCO 17:00: 13:29 First dose [place] 5) 5-325 mg 00 :47 (after Medica l tablet 1 last Branch tablet modificati on) on [facility] 03/24/22 at 1200, Until Discontinu ed, Routine sulfur 2021-05- No [id number] 5mL 5 mL, Unive rs hexafluorid 03-24 Intravenou i ty of e microsphr 15:45: 15:45 s, ONCE, 1 [place] (LUMASON) 00 :00 dose, On Medica l injection 5 [place] Branch mL 03/24/22 at 1045, Routine
in flight crew member approving Restricted medication : MARISABEL , TAREQ gadobenate 2021-05- No [id number] .2mL/kg 10.7 mL Univers dimeglumine 03-23 (0.2 mL/kg i ty of (MULTIHANCE 23:30: 23:30 ?53.5 kg), [place] -15 mL) 00 :00 Intravenou Medica l injection s, ONCE, 1 Bran ch 10.7 mL dose, On Mon03/23/22 at 1830, Routine insulin NPH 2021-05 Yes 39U 39 Units, U nivers and regular 0-26 Subcutaneo it y of human 70 21:30: [place], [place] (70-30 00 First dose Medical U-100 (after Branch INSULIN) last 100 unit/mL modificati (70-30) on) on Mon injection 03/23/22 39 Units at 1630, Until Discontinu ed, Routine insulin NPH 2021-05 Yes 39U 39 Units, U nivers and regular 0-26 Subcutaneo it y of human 21:30: [place], [place] (7030 00 First dose Medical U-100 (after Branch INSULIN) last 100 unit/mL modificati (70-30) on) on Mon injection 03/23/22 39 Units at 1630, Until Discontinu ed, Routine insulin NPH 2021-05 Yes 39U 39 Units, U nivers and regular 0-26 Subcutaneo it y of human 21:30: [place], [place] (7030 00 First dose Medical U-100 (after Branch INSULIN) last 100 unit/mL modificati (70-30) on) on Mon injection 03/23/22 39 Units at 1630, Until Discontinu ed, Routine insulin NPH 2021-05 Yes 39U 39 Units, U nivers and regular 0-26 Subcutaneo it y of human 21:30: [place], [place] ( 00 First dose Medical U-100 (after Branch INSULIN) last 100 unit/mL modificati (70-30) on) on Mon injection 03/23/22 39 Units at 1630, Until Discontinu ed, Routine HYDROcodone 2021-05- No 1{tbl} 1 tablet, Univers -acetaminop 0- 10-27 Oral, Q6H, i ty of hen (NORCO 17:00: 14:56 First dose [place] 5) 5-325 mg 00 :26 on Mon [...] of water 4 07:45: 11:09 at 25 [place] gram/50 mL 00 :00 mL/hr Medical (8 [...] ity of bolus 14:00: PRN - SEE [place] infusion 33 INSTRUCTIO Medic al 250 mL [...] ity of bolus 14:00: PRN - SEE [place] infusion 33 INSTRUCTIO Medic al 250 mL [...] KIT) 30 Starting Medical injection 1 on [facility] 03/22/22 at 0900, Until Discontinu ed, TRANG, Blood Glucose < or = 70 mg/dL and patient is unable to swallow or has mental changes. glucagon 2021-05 Yes 1mg 1 mg, Univers (GLUCAGEN 0-25 Intramuscu ity of DIAGNOSTIC 14:00: lar, PRN, [place] KIT) 30 Starting Medical injection 1 on [facility] 03/22/22 at 0900, Until Discontinu ed, TRANG, Blood Glucose < or = 70 mg/dL and patient is unable to swallow or has mental changes. glucagon 2021-05 Yes 1mg 1 mg, Univers (GLUCAGEN 0-25 Intramuscu ity of DIAGNOSTIC 14:00: [place], PRN, [place] KIT) 30 Starting Medical injection 1 on [facility] 03/22/22 at 0900, Until Discontinu ed, TRANG, [...] swallow or has mental changes. Vancomycin 2021-05 No 15mg/kg 750 mg U nivers 750 mg in 0-03-24 (rounded ity o f NaCl 0.9% 15:00: 19:20 from 816 Raffy as (NS) 250 mL 00 :40 mg = 15 Medic al VIAL-MATE mg/kg Branch ?54.4 kg), IV Piggyback, Q12H ABX, 11 doses, First dose (after last modificati on) on Mon03/21/22 at 1000, Last dose on [facility] 03/26/22 at 1000, Administer over 60 Minutes, 250 mL
Reas on for Anti-Infec tive: Documented Infection< br>Documen anthony Infection Site: Skin / Soft Tissue
Duration of Therapy: 7 days docusate 2021-05 Yes 100mg 100 mg, Unive rs (COLACE) 0-24 Oral, BID, ity o f capsule 100 07:30: First dose [place] mg 00 on [facility] 03/21/22 Branch at 0230, Until Discontinu ed, Routine docusate 2021-05 Yes 100mg 100 mg, Unive rs (COLACE) 0-24 Oral, BID, ity o f capsule 100 07:30: First dose [place] mg 00 on [facility] 03/21/22 Branch at 0230, Until Discontinu ed, Routine docusate 2021-05 Yes 100mg 100 mg, Unive rs (COLACE) 0-24 Oral, BID, ity o f capsule 100 07:30: First dose [place] mg 00 on [facility] 03/21/22 Branch at 0230, Until Discontinu ed, Routine docusate 2021-05 Yes 100mg 100 mg, Unive rs (COLACE) 0-24 Oral, BID, ity o f capsule 100 07:30: First dose [place] mg 00 on [facility] 03/21/22 Branch at 0230, Until Discontinu ed, Routine Sliding 2022-1 2022- No Subcutaneo Uni vers Scale 0-23 1025 us, AC+HS, ity of Insulin-Reg 17:00: 14:01 First dose [place] ular + Fsbg 00 :18 (after Medica l Testing last Branch modificati on) on 03/20/22 at 1200, Until Discontinu ed, Routine morpHINE (2 2021-05- No 2mg 2 mg, Slow Univers mg/mL) 03-23 IV Push, ity of injection 2 03:55: 14:51 Q4HPRN, [place] mg 57 :53 Starting Medical on [facility] Branch 03/19/22 at 2255, Until 03/23/22 at 0951, Routine, Pain (scale 7-10) atorvastati 2021-05 Yes 80mg 80 mg, Univ ers n (LIPITOR) 0-23 Oral, QHS, it y of tablet 80 02:00: First dose [place] mg 00 on [facility] Medical 03/19/22 Branch at 2100, Until Discontinu ed, Routine atorvastati 2021-05 Yes 80mg 80 mg, Univ ers n (LIPITOR) 0-23 Oral, QHS, it y of tablet 80 02:00: First dose [place] mg 00 on [facility] Medical 03/19/22 Branch at 2100, Until Discontinu ed, Routine atorvastati 2021-05 Yes 80mg 80 mg, Univ ers n (LIPITOR) 0-23 Oral, QHS, it y of tablet 80 02:00: First dose [place] mg 00 on [facility] Medical 03/19/22 Branch at 2100, Until Discontinu ed, Routine atorvastati 2021-05 Yes 80mg 80 mg, Univ ers n (LIPITOR) 0-23 Oral, QHS, it y of tablet 80 02:00: First dose [place] mg 00 on [facility] Medical 03/19/22 Branch at 2100, Until Discontinu ed, Routine insulin NPH 2021-05- No 30U 30 Units, Univers and regular 03-23 Subcutaneo i ty of human 70-30 21:30: 19:49 us, BIDAC, [place] (70-30 00 :20 First dose Medical U-100 (after Branch INSULIN) last 100 unit/mL modificati () on) on [facility] injection 03/19/22 30 Units at 1630, Until Discontinu ed, Routine ceFEPIme 2021-05 No 1000mg 1,000 mg, U nivers (MAXIPIME) 03-24 [...] :53 Starting Medi blanquita tablet 1 on [facility] Branch tablet 03/19/22 at 1018, Until 03/23/22 at 0951, Routine, Pain (scale 4-6) Vancomycin 2021-05- No 15mg/kg 750 mg U [...] 40 mg 00 First dose Medical on Sat Branch 03/19/22 at 0900, Until Discontinu ed, Routine pantoprazol 2021-05 Yes 40mg 40 mg, Univ ers e 0-22 Oral, ity of (PROTONIX) 14:00: DAILY, [place] EC tablet 00 First dose Medi blanquita 40 mg on [facility] 03/19/22 at 0900, Until Discontinu ed, Routine ezetimibe 2021-05 Yes 10mg 10 mg, Univer s (ZETIA) 0-22 Oral, ity of tablet 10 14:00: DAILY, [place] mg 00 First dose Medical on [facility] 03/19/22 at 0900, Until Discontinu ed, Routine aspirin 2021-05 Yes 81mg 81 mg, Univers chewable 0-22 Oral, ity of tablet 81 14:00: DAILY, [place] mg 00 First dose Medical on [facility] 03/19/22 at 0900, Until Discontinu ed, Routine enoxaparin 2021-05 Yes 40mg 40 mg, Unive rs (LOVENOX) 0-22 Subcutaneo ity of injection 14:00: us, DAILY, [place] 40 mg 00 First dose Medical on [facility] 03/19/22 at 0900, Until Discontinu ed, Routine pantoprazol 2021-05 Yes 40mg 40 mg, Univ ers e 0-22 Oral, ity of (PROTONIX) 14:00: DAILY, [place] EC tablet 00 First dose Medi blanquita 40 mg on [facility] 03/19/22 at 0900, Until Discontinu ed, Routine ezetimibe 2021-05 Yes 10mg 10 mg, Univer s (ZETIA) 0-22 Oral, ity of tablet 10 14:00: DAILY, [place] mg 00 First dose Medical on [facility] 03/19/22 at 0900, Until Discontinu ed, Routine aspirin 2021-05 Yes 81mg 81 mg, Univers chewable 0-22 Oral, ity of tablet 81 14:00: DAILY, [place] mg 00 First dose Medical on [facility] 03/19/22 at 0900, Until Discontinu ed, Routine enoxaparin 2021-05 Yes 40mg 40 mg, Unive rs (LOVENOX) 0-22 Subcutaneo ity of injection 14:00: us, DAILY, [place] 40 mg 00 First dose Medical on [facility] 03/19/22 at 0900, Until Discontinu ed, Routine pantoprazol 2022-1 Yes 40mg 40 mg, Univ ers e 0-22 Oral, ity of (PROTONIX) 14:00: DAILY, [place] EC tablet 00 First dose Medi blanquita 40 mg on [facility] 03/19/22 at 0900, Until Discontinu ed, Routine ezetimibe 2021-05 Yes 10mg 10 mg, Univer s (ZETIA) 0-22 Oral, ity of tablet 10 14:00: DAILY, [place] mg 00 First dose Medical on [facility] 03/19/22 at 0900, Until Discontinu ed, Routine aspirin 2021-05 Yes 81mg 81 mg, Univers chewable 0-22 Oral, ity of tablet 81 14:00: DAILY, [place] mg 00 First dose Medical on [facility] 03/19/22 at 0900, Until Discontinu ed, Routine enoxaparin 2021-05 Yes 40mg 40 mg, Unive rs (LOVENOX) 0-22 Subcutaneo ity of injection 14:00: us, DAILY, [place] 40 mg 00 First dose Medical on [facility] 03/19/22 at 0900, Until Discontinu ed, Routine pantoprazol 2021-05 Yes 40mg 40 mg, Univ ers e 0-22 Oral, ity of (PROTONIX) 14:00: DAILY, [place] EC tablet 00 First dose Medi blanquita 40 mg on [facility] 03/19/22 at 0900, Until Discontinu ed, Routine ezetimibe 2021-05 Yes 10mg 10 mg, Univer s (ZETIA) 0-22 Oral, ity of tablet 10 14:00: DAILY, [place] mg 00 First dose Medical on [facility] 03/19/22 at 0900, Until Discontinu ed, Routine aspirin 2021-05 Yes 81mg 81 mg, Univers chewable 0-22 Oral, ity of tablet 81 14:00: DAILY, [place] mg 00 First dose Medical on [facility] 03/19/22 at 0900, Until Discontinu ed, Routine clopidogreL 2021-05 75mg 75 mg, Uni vers (PLAVIX) 75 0-19 03-31 Oral, ity of mg tablet 14:00: 21:11 DAILY, [place] 75 mg 00 :44 First dose Medical on [facility] 03/19/22 at 0900, Until Discontinu ed, Routine gabapentin 2021-05 Yes 800mg 800 mg, Uni vers (NEURONTIN) 0-22 Oral, TID, it y of tablet 800 13:00: First dose [place] mg 00 on [facility] 03/19/22 Branch at 0800, Until Discontinu ed, Routine gabapentin 2021-05 Yes 800mg 800 mg, Uni vers (NEURONTIN) 0-22 Oral, TID, it y of tablet 800 13:00: First dose [place] mg 00 on [facility] 03/19/22 Branch at 0800, Until Discontinu ed, Routine gabapentin 2021-05 Yes 800mg 800 mg, Uni vers (NEURONTIN) 0-22 Oral, TID, it y of tablet 800 13:00: First dose [place] mg 00 on [facility] 03/19/22 Branch at 0800, Until Discontinu ed, Routine gabapentin 2021-05 Yes 800mg 800 mg, Uni vers (NEURONTIN) 0-22 Oral, TID, it y of tablet 800 13:00: First dose [place] mg 00 on [facility] 03/19/22 Branch at 0800, Until Discontinu ed, Routine NaCl 0.9% 2021-05 No 1000mL at 125 Uni vers (NS) IV 03-19 mL/hr, IV ity of infusion 13:00: 13:03 Infusion, [place] as 1,000 mL 00 :07 ONCE, 1 Medical dose, On Branch [facility] 03/19/22 at 0800, Routine fluconazole 2021-05- No 200mg 200 mg, U nivers (DIFLUCAN) 03-19 Oral, ity of tablet 200 12:30: 12:57 ONCE, 1 [place] mg 00 :00 dose, On Medical [facility] 03/19/22 at 0730, TRANG
Re ason for Anti-Infec tive: Empiric Therapy for Suspected Infection< br>Empiric Therapy Site: Abdominal< br>Duratio n of therapy: 5 days insulin NPH 2021-05 No 20U 20 Units, Univers and regular 03-19 Subcutaneo i ty of human 70-30 12:30: 18:50 us, [facility], [place] (70-30 00 :12 First dose Medical U-100 on [facility] INSULIN) 03/19/22 100 unit/mL at 0730, (70-30) Until injection Discontinu 20 Units ed, Routine piperacilli 2021-05 3.375g 3.375 g, Univers n-tazobacta 0-03-19 IV ity of m (ZOSYN) 12:00: 13:37 [...] 0-22 Oral, ity of 3350 powder 11:37: [id number], [place] 17 g 04 Starting Medical on [facility] 03/19/22 at 0637, Until Discontinu ed, Routine, Constipati on polyethylen 2021-05 Yes 17g 17 g, Unive rs e glycol 0-22 Oral, ity of 3350 powder 11:37: [id number], [place] 17 g 04 Starting Medical on Sat Branch 03/19/22 at 0637, Until Discontinu ed, Routine, Constipati on polyethylen 2021-05 Yes 17g 17 g, Unive rs e glycol 0-22 Oral, ity of 3350 powder 11:37: [id number], [place] 17 g 04 Starting Medical on [facility] 03/19/22 at 0637, Until Discontinu ed, Routine, Constipati on polyethylen 2021-05 Yes 17g 17 g, Unive rs e glycol 0-22 Oral, ity of 3350 powder 11:37: [id number], [place] 17 g 04 Starting Medical [...] IV Push, ity of (PF)) 09:50: Q6HPRN, [place] injection 4 56 Starting Medi blanquita mg on [facility] 03/19/22 at 0450, Until Discontinu ed, Routine, Nausea and Vomiting (N/V) ondansetron 2021-05 Yes 4mg 4 mg, Slow Univers (ZOFRAN 0-22 IV Push, ity of (PF)) 09:50: Q6HPRN, [place] injection 4 56 Starting Medi blanquita mg on [facility] 03/19/22 at 0450, Until Discontinu ed, Routine, Nausea and Vomiting (N/V) ondansetron 2021-05 Yes 4mg 4 mg, Slow Univers (ZOFRAN 0-22 IV Push, ity of (PF)) 09:50: Q6HPRN, [place] injection 4 56 Starting Medi blanquita mg on [facility] 03/19/22 at 0450, Until Discontinu ed, Routine, Nausea and Vomiting (N/V) morpHINE (2 2021-05 2mg 2 mg, Slow Univers mg/mL) 0 10-23 IV Push, ity of injection 2 09:50: 03:56 Q4HPRN, [place] mg 42 :27 Starting Medical on [facility] 03/19/22 at 0450, Until 03/19/22 at 2256, Routine, Pain (scale 7-10) acetaminoph 2021-05 Yes 650mg 650 mg, Un cali en 0-22 Oral, ity of (TYLENOL) 09:49: [place], [place] tablet 650 47 Starting Medic al mg on [facility] 03/19/22 at 0449, Until Discontinu ed, Routine, Pain (scale 1-3) acetaminoph 2021-05 Yes 650mg 650 mg, Un cali en 0-22 Oral, ity of (TYLENOL) 09:49: [place], [place] tablet 650 47 Starting Medic al mg on [facility] 03/19/22 at 0449, Until Discontinu ed, Routine, Pain (scale 1-3) acetaminoph 2021-05 Yes 650mg 650 mg, Un cali en 0-22 Oral, ity of (TYLENOL) 09:49: Q6HPRN, [place] tablet 650 47 Starting Medic al mg on Sat Branch 03/19/22 at 0449, Until Discontinu ed, Routine, Pain (scale 1-3) acetaminoph 2021-05 Yes 650mg 650 mg, Un cali en 0 Oral, ity of (TYLENOL) 09:49: Q6HPRN, [place] tablet 650 47 Starting Medic al mg [...] QHSPRN, [place] mg 59 Starting Medical on [facility] 03/19/22 at 0446, Until Discontinu ed, Routine, insomnia mirtazapine 2021-05 Yes 15mg 15 mg, [facility] [place] [facility] ers (REMERON) 0-22 Oral, ity of tablet 15 09:46: QHSPRN, [place] mg 59 Starting Medical on [facility] 03/19/22 at 0446, Until Discontinu ed, Routine, insomnia mirtazapine 2021-05 Yes 15mg 15 mg, [facility] [place] [facility] ers (REMERON) 0-22 Oral, ity of tablet 15 09:46: QHSPRN, [place] mg 59 Starting Medical on [facility] 03/19/22 at 0446, Until Discontinu ed, Routine, insomnia insulin 2021-05 No 10U 10 Units, [facility] [place] [facility] ers regular 03-19 Slow IV ity of human 07:45: 06:50 Push, [place] (HUMULIN R) 00 :00 ONCE, 1 Medic [...]
Duration of Therapy: Other (see Comments) ondansetron 2021-05- No 4mg 4 mg, Slow Univers (ZOFRAN 03-19 IV Push, ity of (PF)) 07:15: 07:09 ONCE, 1 [place] injection 4 00 :00 dose, On Medi blanquita mg Sat Branch 03/19/22 at 0215, TRANG morpHINE (4 2021-05 No 4mg 4 mg, Slow Univers mg/mL) 03-19 IV Push, ity of injection 4 07:15: 07:09 ONCE, 1 [place] mg 00 :00 dose, On Medical Sat Branch 03/19/22 at 0215, STAT NaCl 0.9% 2021-05 500mL at 999 Univ ers (NS) bolus - mL/hr, 500 it y of infusion 07:15: 06:53 mL, IV [place] 500 mL 00 :00 Infusion, Medical ONCE, 1 Branch dose, On 03/19/22 at 0215, STAT gabapentin 2021-05 Yes [id number] 800mg Take 1 Univers 800 mg 0-04 tablet by ity of tablet 00:00: mouth in [address] and 1 tablet at noon and 1 tablet in the evening. gabapentin 2021-05 Yes [id number] 800mg Take 1 Univers 800 mg 0-04 tablet by ity of tablet 00:00: mouth in [address] and 1 tablet at noon and 1 tablet in the evening. gabapentin 2021-05 Yes [id number] 800mg Take 1 [facility] 800 mg 0-04 tablet by ity of tablet 00:00: mouth in [address] and 1 tablet at noon and 1 tablet in the evening. gabapentin 2021-05 Yes [id number] 800mg Take 1 Univers 800 mg 0-04 tablet by ity of tablet 00:00: mouth in [address] and 1 tablet at noon and 1 tablet in the evening. gabapentin 2021-05 Yes [id number] 800mg Take 1 Univers 800 mg 0-04 tablet by ity of tablet 00:00: mouth in [address] and 1 tablet at noon and 1 tablet in the evening. gabapentin 2021-05 Yes [id number] 800mg Take 1 Univers 800 mg 0-04 tablet by ity of tablet 00:00: mouth in [address] and 1 tablet at noon and 1 tablet in the evening. gabapentin 2021- Yes [id number] 800mg Take 1 Univers 800 mg 0-04 tablet by ity of tablet 00:00: mouth in [address] and 1 tablet at noon and 1 tablet in the evening. gabapentin 2021-05 Yes [id number] 800mg Take 1 Univers 800 mg 0-04 tablet by ity of tablet 00:00: mouth in [place] [address] the [facility] morning [place] and 1 tablet at noon and 1 tablet in the evening. gabapentin 2021- Yes [id number] 800mg Take 1 Univers 800 mg 0-04 tablet by ity of tablet 00:00: mouth in [place] [address] the [facility] morning [place] and 1 tablet at noon and 1 tablet in the evening. gabapentin 2021- Yes [id number] 800mg Take 1 Univers 800 mg 0-04 tablet by ity of tablet 00:00: mouth in [place] [address] the [facility] morning [place] and 1 tablet at noon and 1 tablet in the evening. gabapentin 2021-05 Yes [id number] 800mg Take 1 Univers 800 mg 0-04 tablet by ity of tablet 00:00: mouth in [place] [address] the [facility] and 1 tablet at noon and 1 tablet in the evening. gabapentin 2021-05 Yes [id number] 800mg Take 1 Univers 800 mg 0-04 tablet by ity of tablet 00:00: mouth in [place] [address] the [facility] and 1 tablet at noon and 1 tablet in the evening. gabapentin 2021-05 Yes [id number] 800mg Take 1 Univers 800 mg 0-04 tablet by ity of tablet 00:00: mouth in [place] [address] the [facility] and 1 tablet at noon and 1 tablet in the evening. gabapentin 2021-05 Yes [id number] 800mg Take 1 Univers 800 mg 0-04 tablet by ity of tablet 00:00: mouth in [place] [address] the [facility] and 1 tablet at noon and 1 tablet in the evening. GABAPENTIN 2021-0 2021- No [id number] TAKE 1 Univers 800 mg 9-06 10-04 TABLET BY ity of tablet 00:00: 00:00 MOUTH [place] 00 :00 THREE Medical TIMES Branch DAILY GABAPENTIN 2021-0 2021- No [id number] TAKE 1 Univers 800 mg 9-06 10-04 TABLET BY ity of tablet 00:00: 00:00 MOUTH [place] 00 :00 THREE Medical TIMES [place] DAILY semaglutide 2021-0 Yes [id number] .25mg inject Univers (OZEMPIC) 8-17 0.25 mg ity of 0.25 mg or 00:00: under the [place] 0.5 mg(2 00 skin Medical mg/1.5 mL) weekly. Branch PnIj semaglutide 2021-0 Yes [id number] .25mg inject Univers (OZEMPIC) 8-17 0.25 mg ity of 0.25 mg or 00:00: under the [place] 0.5 mg(2 00 skin Medical mg/1.5 mL) weekly. Branch PnIj semaglutide 2021-0 Yes [id number] .25mg inject Univers (OZEMPIC) 8-17 0.25 mg ity of 0.25 mg or 00:00: under the [place] 0.5 mg(2 00 skin Medical mg/1.5 mL) weekly. Branch PnIj semaglutide 2021-0 Yes [id number] .25mg inject Univers (OZEMPIC) 8-17 0.25 mg ity of 0.25 mg or 00:00: under the [place] 0.5 mg(2 00 skin Medical mg/1.5 mL) weekly. Branch PnIj semaglutide 2021-0 Yes [id number] .25mg inject Univers (OZEMPIC) 8-17 0.25 mg ity of 0.25 mg or 00:00: under the [place] 0.5 mg(2 00 skin Medical mg/1.5 mL) weekly. Branch PnIj semaglutide 2021-0 Yes [id number] .25mg inject Univers (OZEMPIC) 8-17 0.25 mg ity of 0.25 mg or 00:00: under the [place] 0.5 mg(2 00 skin Medical mg/1.5 mL) weekly. Branch PnIj semaglutide 2021-0 Yes [id number] .25mg inject Univers (OZEMPIC) 8-17 0.25 mg ity of 0.25 mg or 00:00: under the [place] 0.5 mg(2 00 skin Medical mg/1.5 mL) weekly. Branch PnIj semaglutide 2021-0 Yes [id number] .25mg inject Univers (OZEMPIC) 8-17 0.25 mg ity of 0.25 mg or 00:00: under the [place] 0.5 mg(2 00 skin Medical mg/1.5 mL) weekly. Branch PnIj semaglutide 2021-0 Yes [id number] .25mg inject Univers (OZEMPIC) 8-17 0.25 mg ity of 0.25 mg or 00:00: under the [place] 0.5 mg(2 00 skin Medical mg/1.5 mL) weekly. Branch Valeria semaglutide 2021-0 Yes [id number] .25mg inject Univers (OZEMPIC) 8-17 0.25 mg ity of 0.25 mg or 00:00: under the [place] 0.5 mg(2 00 skin Medical mg/1.5 mL) weekly. Branch [place] semaglutide 2021-0 Yes [id number] .25mg inject Univers (OZEMPIC) 8-17 0.25 mg ity of 0.25 mg or 00:00: under the [place] 0.5 mg(2 00 skin Medical mg/1.5 mL) weekly. Branch [place] semaglutide 2021-0 Yes [id number] .25mg inject Univers (OZEMPIC) 8-17 0.25 mg ity of 0.25 mg or 00:00: under the [place] 0.5 mg(2 00 skin Medical mg/1.5 mL) weekly. Branch JaidenIj semaglutide 2021-0 Yes [id number] .25mg inject Univers (OZEMPIC) 8-17 0.25 mg ity of 0.25 mg or 00:00: under the [place] 0.5 mg(2 00 skin Medical mg/1.5 mL) weekly. Branch [place] semaglutide 2021-0 Yes [id number] .25mg inject Univers (OZEMPIC) 8-17 0.25 mg ity of 0.25 mg or 00:00: under the [place] 0.5 mg(2 00 skin Medical mg/1.5 mL) weekly. Branch JaidenIj semaglutide 2021-0 Yes [id number] .25mg inject Univers (OZEMPIC) 8-17 0.25 mg ity of 0.25 mg or 00:00: under the [place] 0.5 mg(2 00 skin Medical mg/1.5 mL) weekly. Branch [place] semaglutide 2021-0 Yes [id number] .25mg inject Univers (OZEMPIC) 8-17 0.25 mg ity of 0.25 mg or 00:00: under the [place] 0.5 mg(2 00 skin Medical mg/1.5 mL) weekly. Branch PnIj flash 2021-0 Yes [id number] 1{each} Apply 1 U nivers glucose 5-20 Each to ity of sensor 00:00: skin every (FREESTYLE 00 14 Medical RASHARD 2 (fourteen) Branch SENSOR) Kit days. Dx E11.9 flash 2021-0 Yes [id number] 1{each} 1 Each Un cali glucose 5-20 daily. Dx ity of scanning 00:00: E11.9 reader Medical (FREESTYLE Branch RASHARD 2 READER) Misc insulin NPH Yes [id number] 45U inject Univers and regular 5-20 45-55 ity of human 70-30 00:00: Units [place] (NOVOLIN 00 under the Medica l 70/30 U-100 skin 2 Branch INSULIN) (two) 100 unit/mL times (70-30) daily injection before breakfast and dinner. atorvastati 0 Yes 80mg Take 1 Univ ers n 80 mg 5-20 tablet by ity of tablet 00:00: mouth at [place] 00 bedtime. Medical Branch Blood-Gluco 0 Yes [id number] Use 3 Univers se Meter 5-20 times ity of (TRUE 00:00: daily. Dx [place] METRIX 00 E11.9 Medical GLUCOSE Branch METER) Mis blood sugar Yes [id number] Use 3 Univers diagnostic 5-20 times ity of (TRUE 00:00: daily. Dx [place] METRIX 00 E11.9 Medical GLUCOSE Branch TEST STRIP) strip flash Yes [id number] 1{each} Apply 1 U nivers glucose 5-20 Each to ity of sensor 00:00: skin every [place] (FREESTYLE 00 14 Medical RASHARD 2 (fourteen) Branch SENSOR) Kit days. Dx E11.9 flash 2021-0 Yes [id number] 1{each} 1 Each Un cali glucose 5-20 daily. Dx ity of scanning 00:00: E11.9 [place] reader 00 Medical (FREESTYLE Branch RASHARD 2 READER) Misc insulin NPH 0 Yes [id number] 45U inject Univers and regular 5-20 45-55 ity of human 70-30 00:00: Units [place] (NOVOLIN 00 under the Medica l 70/30 U-100 skin 2 Branch INSULIN) (two) 100 unit/mL times (70-30) daily injection before breakfast and dinner. atorvastati Yes 80mg Take 1 Univ ers n 80 mg 5-20 tablet by ity of tablet 00:00: mouth at [place] 00 bedtime. Medical Branch Blood-Gluco Yes [id number] Use 3 Univers se Meter 5-20 times ity of (TRUE 00:00: daily. Dx [place] METRIX 00 E11.9 Medical GLUCOSE Branch METER) Misc blood sugar Yes [id number] Use 3 Univers diagnostic 5-20 times ity of (TRUE 00:00: daily. Dx [place] METRIX 00 E11.9 Medical GLUCOSE Branch TEST STRIP) strip flash Yes [id number] 1{each} Apply 1 U nivers glucose 5-20 Each to ity of sensor 00:00: skin every [place] (FREESTYLE 00 14 Medical RASHARD 2 (fourteen) Branch SENSOR) Kit days. Dx E11.9 flash 2021-0 Yes [id number] 1{each} 1 Each Un cali glucose 5-20 daily. Dx ity of scanning 00:00: E11.9 [place] reader 00 Medical (FREESTYLE Branch RASHARD 2 READER) Misc insulin NPH Yes [id number] 45U inject Univers and regular 5-20 45-55 ity of human 70-30 00:00: Units [place] (NOVOLIN 00 under the Medica l 70/30 U-100 skin 2 Branch INSULIN) (two) 100 unit/mL times (70-30) daily injection before breakfast and dinner. atorvastati Yes 80mg Take 1 Univ ers n 80 mg 5-20 tablet by ity of tablet 00:00: mouth at [place] 00 bedtime. Medical Branch Blood-Gluco Yes [id number] Use 3 Univers se Meter 5-20 times ity of (TRUE 00:00: daily. Dx [place] METRIX 00 E11.9 Medical GLUCOSE Branch METER) Misc blood sugar Yes [id number] Use 3 Univers diagnostic 5-20 times ity of (TRUE 00:00: daily. Dx [place] METRIX 00 E11.9 Medical GLUCOSE Branch TEST STRIP) strip flash 2021- Yes [id number] 1{each} Apply 1 U nivers glucose 5-20 Each to ity of sensor 00:00: skin every (FREESTYLE 00 14 Medical RASHARD 2 (fourteen) Branch SENSOR) Kit days. Dx E11.9 flash 2021-0 Yes [id number] 1{each} 1 Each Un cali glucose 5-20 daily. Dx ity of scanning 00:00: E11.9 [place] reader 00 Medical (FREESTYLE Branch RASHARD 2 READER) Misc insulin NPH Yes [id number] 45U inject Univers and regular 5-20 45-55 ity of human 70-30 00:00: Units [place] (NOVOLIN 00 under the Medica l 70/30 U-100 skin 2 Branch INSULIN) (two) 100 unit/mL times (70-30) daily injection before breakfast and dinner. atorvastati Yes 80mg Take 1 Univ ers n 80 mg 5-20 tablet by ity of tablet 00:00: mouth at [place] 00 bedtime. Medical Branch Blood-Gluco 0 Yes [id number] Use 3 Univers se Meter 5-20 times ity of (TRUE 00:00: daily. Dx [place] METRIX 00 E11.9 Medical GLUCOSE Branch METER) Mis blood sugar Yes [id number] Use 3 Univers diagnostic 5-20 times ity of (TRUE 00:00: daily. Dx [place] METRIX 00 E11.9 Medical GLUCOSE Branch TEST STRIP) strip flash 0 Yes [id number] 1{each} Apply 1 U nivers glucose 5-20 Each to ity of sensor 00:00: skin every (FREESTYLE 00 14 Medical RASHARD 2 (fourteen) Branch SENSOR) Kit days. Dx E11.9 flash 2021-0 Yes [id number] 1{each} 1 Each Un cali glucose 5-20 daily. Dx ity of scanning 00:00: E11.9 [place] reader 00 Medical (FREESTYLE Branch RASHARD 2 READER) Misc insulin NPH 0 Yes [id number] 45U inject Univers and regular 5-20 45-55 ity of human 70-30 00:00: Units [place] (NOVOLIN 00 under the Medica l 70/30 U-100 skin 2 Branch INSULIN) (two) 100 unit/mL times (70-30) daily injection before breakfast and dinner. atorvastati Yes 80mg Take 1 Univ ers n 80 mg 5-20 tablet by ity of tablet 00:00: mouth at [place] 00 bedtime. Medical Branch Blood-Gluco Yes [id number] Use 3 Univers se Meter 5-20 times ity of (TRUE 00:00: daily. Dx [place] METRIX 00 E11.9 Medical GLUCOSE Branch METER) Misc blood sugar Yes [id number] Use 3 Univers diagnostic 5-20 times ity of (TRUE 00:00: daily. Dx [place] METRIX E11.9 Medical GLUCOSE Branch TEST STRIP) strip flash 2021-0 Yes [id number] 1{each} Apply 1 U nivers glucose 5-20 Each to ity of sensor 00:00: skin every (FREESTYLE 00 14 Medical RASHARD 2 (fourteen) Branch SENSOR) Kit days. Dx E11.9 flash 2021-0 Yes [id number] 1{each} 1 Each Un cali glucose 5-20 daily. Dx ity of scanning 00:00: E11.9 [place] reader 00 Medical (FREESTYLE Branch RASHARD 2 READER) Misc insulin NPH Yes [id number] 45U inject Univers and regular 5-20 45-55 ity of human 70-30 00:00: Units (NOVOLIN 00 under the Medica l 70/30 U-100 skin 2 Branch INSULIN) (two) 100 unit/mL times (70-30) daily injection before breakfast and dinner. atorvastati Yes 80mg Take 1 Univ ers n 80 mg 5-20 tablet by ity of tablet 00:00: mouth at [place] 00 bedtime. Medical Branch Blood-Gluco Yes [id number] Use 3 Univers se Meter 5-20 times ity of (TRUE 00:00: daily. Dx [place] METRIX 00 E11.9 Medical GLUCOSE Branch METER) Misc blood sugar Yes [id number] Use 3 Univers diagnostic 5-20 times ity of (TRUE 00:00: daily. Dx [place] METRIX 00 E11.9 Medical GLUCOSE Branch TEST STRIP) strip flash 2021-0 Yes [id number] 1{each} Apply 1 U nivers glucose 5-20 Each to ity of sensor 00:00: skin every [place] (FREESTYLE 00 14 Medical RASHARD 2 (fourteen) Branch SENSOR) Kit days. Dx E11.9 flash 0 Yes [id number] 1{each} 1 Each Un cail glucose 5-20 daily. Dx ity of scanning 00:00: E11.9 [place] reader 00 Medical (FREESTYLE Branch RASHARD 2 READER) Misc insulin NPH Yes [id number] 45U inject Univers and regular 5-20 45-55 ity of human 70-30 00:00: Units (NOVOLIN 00 under the Medica l 70/30 U-100 skin 2 Branch INSULIN) (two) 100 unit/mL times (70-30) daily injection before breakfast and dinner. atorvastati Yes 80mg Take 1 Univ ers n 80 mg 5-20 tablet by ity of tablet 00:00: mouth at [place] 00 bedtime. Medical Branch Blood-Gluco Yes [id number] Use 3 Univers se Meter 5-20 times ity of (TRUE 00:00: daily. Dx [place] METRIX 00 E11.9 Medical GLUCOSE Branch METER) Mis blood sugar Yes [id number] Use 3 Univers diagnostic 5-20 times ity of (TRUE 00:00: daily. Dx [place] METRIX 00 E11.9 Medical GLUCOSE Branch TEST STRIP) strip flash Yes [id number] 1{each} Apply 1 U nivers glucose 5-20 Each to ity of sensor 00:00: skin every (FREESTYLE 00 14 Medical RASHARD 2 (fourteen) Branch SENSOR) Kit days. Dx E11.9 flash 0 Yes [id number] 1{each} 1 Each Un cali glucose 5-20 daily. Dx ity of scanning 00:00: E11.9 [place] reader 00 Medical (FREESTYLE Branch RASHARD 2 READER) Misc insulin NPH Yes [id number] 45U inject Univers and regular 5-20 45-55 ity of human 70-30 00:00: Units (NOVOLIN 00 under the Medica l 70/30 U-100 skin 2 Branch INSULIN) (two) 100 unit/mL times (70-30) daily injection before breakfast and dinner. atorvastati Yes 80mg Take 1 Univ ers n 80 mg 5-20 tablet by ity of tablet 00:00: mouth at [place] 00 bedtime. Medical Branch Blood-Gluco Yes [id number] Use 3 Univers se Meter 5-20 times ity of (TRUE 00:00: daily. Dx [place] METRIX E11.9 Medical GLUCOSE Branch METER) Misc blood sugar 0 Yes [id number] Use 3 Univers diagnostic 5-20 times ity of (TRUE 00:00: daily. Dx [place] METRIX E11.9 Medical GLUCOSE Branch TEST STRIP) strip flash 2021-0 Yes [id number] 1{each} Apply 1 U nivers glucose 5-20 Each to ity of sensor 00:00: skin every (FREESTYLE 00 14 Medical RASHARD 2 (fourteen) Branch SENSOR) Kit days. Dx E11.9 flash 2021-0 Yes [id number] 1{each} 1 Each Un cali glucose 5-20 daily. Dx ity of scanning 00:00: E11.9 [place] reader 00 Medical (FREESTYLE Branch RASHARD 2 READER) Misc insulin NPH Yes [id number] 45U inject Univers and regular 5-20 45-55 ity of human 70-30 00:00: Units [place] (NOVOLIN 00 under the Medica l 70/30 U-100 skin 2 Branch INSULIN) (two) 100 unit/mL times (70-30) daily injection before breakfast and dinner. atorvastati Yes 80mg Take 1 Univ ers n 80 mg 5-20 tablet by ity of tablet 00:00: mouth at [place] 00 bedtime. Medical Branch Blood-Gluco Yes [id number] Use 3 Univers se Meter 5-20 times ity of (TRUE 00:00: daily. Dx METRIX E11.9 Medical GLUCOSE Branch METER) Misc blood sugar 0 Yes [id number] Use 3 Univers diagnostic 5-20 times ity of (TRUE 00:00: daily. Dx [place] METRIX 00 E11.9 Medical GLUCOSE Branch TEST STRIP) strip flash 2021-0 Yes [id number] 1{each} Apply 1 U nivers glucose 5-20 Each to ity of sensor 00:00: skin every [place] (FREESTYLE 00 14 Medical RASHARD 2 (fourteen) Branch SENSOR) Kit days. Dx E11.9 flash 2021-0 Yes [id number] 1{each} 1 Each Un cali glucose 5-20 daily. Dx ity of scanning 00:00: E11.9 [place] reader 00 Medical (FREESTYLE Branch RASHARD 2 READER) Misc insulin NPH 0 Yes [id number] 45U inject Univers and regular 5-20 45-55 ity of human 70-30 00:00: Units (NOVOLIN 00 under the Medica l 70/30 U-100 skin 2 Branch INSULIN) (two) 100 unit/mL times (70-30) daily injection before breakfast and dinner. atorvastati 2021-0 Yes 80mg Take 1 Univ ers n 80 mg 5-20 tablet by ity of tablet 00:00: mouth at [place] 00 bedtime. Medical Branch Blood-Gluco 2021-0 Yes [id number] Use 3 Univers se Meter 5-20 times ity of (TRUE 00:00: daily. Dx [place] METRIX 00 E11.9 Medical GLUCOSE Branch METER) Misc blood sugar 0 Yes [id number] Use 3 Univers diagnostic 5-20 times ity of (TRUE 00:00: daily. Dx [place] METRIX 00 E11.9 Medical GLUCOSE Branch TEST STRIP) strip flash 0 Yes [id number] 1{each} Apply 1 U nivers glucose 5-20 Each to ity of sensor 00:00: skin every [place] (FREESTYLE 00 14 Medical RASHARD 2 (fourteen) Branch SENSOR) Kit days. Dx E11.9 flash 2021-0 Yes [id number] 1{each} 1 Each Un cali glucose 5-20 daily. Dx ity of scanning 00:00: E11.9 [place] reader 00 Medical (FREESTYLE Branch RASHARD 2 READER) Misc insulin NPH 2021-0 Yes [id number] 45U inject Univers and regular 5-20 45-55 ity of human 70-30 00:00: Units (NOVOLIN 00 under the Medica l 70/30 U-100 skin 2 Branch INSULIN) (two) 100 unit/mL times (70-30) daily injection before breakfast and dinner. atorvastati 2021-0 Yes 80mg Take 1 Univ ers n 80 mg 5-20 tablet by ity of tablet 00:00: mouth at [place] 00 bedtime. Medical Branch Blood-Gluco 2021-0 Yes [id number] Use 3 Univers se Meter 5-20 times ity of (TRUE 00:00: daily. Dx [place] METRIX 00 E11.9 Medical GLUCOSE Branch METER) Mis blood sugar 2021-0 Yes [id number] Use 3 Univers diagnostic 5-20 times ity of (TRUE 00:00: daily. Dx [place] METRIX 00 E11.9 Medical GLUCOSE Branch TEST STRIP) strip flash 2021-0 Yes [id number] 1{each} Apply 1 U nivers glucose 5-20 Each to ity of sensor 00:00: skin every [place] (FREESTYLE 00 14 Medical RASHARD 2 (fourteen) Branch SENSOR) Kit days. Dx E11.9 flash 2021-0 Yes [id number] 1{each} 1 Each Un cali glucose 5-20 daily. Dx ity of scanning 00:00: E11.9 [place] reader 00 Medical (FREESTYLE Branch RASHARD 2 READER) Misc atorvastati 0 Yes 80mg Take 1 Univ ers n 80 mg 5-20 tablet by ity of tablet 00:00: mouth at [place] 00 bedtime. Medical Branch Blood-Gluco 0 Yes [id number] Use 3 Univers se Meter 5-20 times ity of (TRUE 00:00: daily. Dx [place] METRIX 00 E11.9 Medical GLUCOSE Branch METER) [facility] blood sugar 2021-0 Yes [id number] Use 3 Univers diagnostic 5-20 times ity of (TRUE 00:00: daily. Dx [place] METRIX 00 E11.9 Medical GLUCOSE Branch TEST STRIP) strip flash 2021-0 Yes [id number] 1{each} Apply 1 U nivers glucose 5-20 Each to ity of sensor 00:00: skin every (FREESTYLE 00 14 Medical RASHARD 2 (fourteen) Branch SENSOR) Kit days. Dx E11.9 flash 2021-0 Yes [id number] 1{each} 1 Each Un [place]i glucose 5-20 daily. Dx ity of scanning 00:00: E11.9 [place] reader 00 Medical (FREESTYLE Branch RASHARD 2 READER) Misc atorvastati 2021-0 Yes 80mg Take 1 Univ ers n 80 mg 5-20 tablet by ity of tablet 00:00: mouth at [place] 00 bedtime. Medical Branch Blood-Gluco 2021-0 Yes [id number] Use 3 Univers se Meter 5-20 times ity of (TRUE 00:00: daily. Dx METRIX E11.9 Medical GLUCOSE Branch METER) Mis blood sugar 2021-0 Yes [id number] Use 3 Univers diagnostic 5-20 times ity of (TRUE 00:00: daily. Dx [place] METRIX 00 E11.9 Medical GLUCOSE Branch TEST STRIP) strip flash 2021-0 Yes [id number] 1{each} Apply 1 U nivers glucose 5-20 Each to ity of sensor 00:00: skin every (FREESTYLE 00 14 Medical RASHARD 2 (fourteen) Branch SENSOR) Kit days. Dx E11.9 flash 2021-0 Yes [id number] 1{each} 1 Each Un [place] glucose 5-20 daily. Dx ity of scanning 00:00: E11.9 [place] reader 00 Medical (FREESTYLE Branch RASHARD 2 READER) Misc atorvastati 2021-0 Yes 80mg Take 1 Univ ers n 80 mg 5-20 tablet by ity of tablet 00:00: mouth at [place] 00 bedtime. Medical Branch Blood-Gluco 2021-0 Yes [id number] Use 3 Univers se Meter 5-20 times ity of (TRUE 00:00: daily. Dx METRIX E11.9 Medical GLUCOSE Branch METER) Mis blood sugar 2021-0 Yes [id number] Use 3 [facility] diagnostic 5-20 times ity of (TRUE 00:00: daily. Dx METRIX E11.9 Medical GLUCOSE Branch TEST STRIP) strip flash 2021-0 Yes [id number] 1{each} Apply 1 U nivers glucose 5-20 Each to ity of sensor 00:00: skin every [place] (FREESTYLE 00 14 Medical RASHARD 2 (fourteen) Branch SENSOR) Kit days. Dx E11.9 flash 2021-0 Yes [id number] 1{each} 1 Each Un [place] glucose 5-20 daily. Dx ity of scanning 00:00: E11.9 [place] reader 00 Medical (FREESTYLE Branch RASHARD 2 READER) Misc atorvastati 2021-0 Yes 80mg Take 1 Univ ers n 80 mg 5-20 tablet by ity of tablet 00:00: mouth at [place] 00 bedtime. Medical Branch Blood-Gluco 2021-0 Yes [id number] Use 3 [facility] se Meter 5-20 times ity of (TRUE 00:00: daily. Dx [place] METRIX 00 E11.9 Medical GLUCOSE Branch METER) [facility] blood sugar Yes [id number] Use 3 Univers diagnostic 5-20 times ity of (TRUE 00:00: daily. Dx [place] METRIX 00 E11.9 Medical GLUCOSE Branch TEST STRIP) strip flash Yes [id number] 1{each} Apply 1 U nivers glucose 5-20 Each to ity of sensor 00:00: skin every [place] (FREESTYLE 00 14 Medical RASHARD 2 (fourteen) Branch SENSOR) Kit days. Dx E11.9 flash 0 Yes [id number] 1{each} 1 Each Un cali glucose 5-20 daily. Dx ity of scanning 00:00: E11.9 [place] reader 00 Medical (FREESTYLE Branch RASHARD 2 READER) [facility] atorvastati Yes 80mg Take 1 Univ ers n 80 mg 5-20 tablet by ity of tablet 00:00: mouth at [place] 00 bedtime. Medical Branch Blood-Gluco Yes [id number] Use 3 Univers se Meter 5-20 times ity of (TRUE 00:00: daily. Dx [place] METRIX 00 E11.9 Medical GLUCOSE Branch METER) [facility] blood sugar Yes [id number] Use 3 [facility] diagnostic 5-20 times ity of (TRUE 00:00: daily. Dx [place] METRIX 00 E11.9 Medical GLUCOSE Branch TEST STRIP) strip insulin NPH 2021- No [id number] 45U inject Univers and regular 5-20 - 45-55 ity of human 70-30 00:00: [place] Units [place] (NOVOLIN 00 :00 under the Medica l 70/30 U-100 skin 2 Branch INSULIN) (two) 100 unit/mL times (70-30) daily injection before breakfast and dinner. GABAPENTIN 2021- No [id number] TAKE 1 [facility] 800 mg 2-25 09-06 TABLET BY ity of tablet 00:00: 00:00 MOUTH [place] 00 :00 THREE Medical TIMES Branch DAILY GABAPENTIN 2021- No [id number] TAKE 1 Univers 800 mg 2-25 09-06 TABLET BY ity of tablet 00:00: 00:00 MOUTH [place] 00 :00 THREE Medical TIMES Branch DAILY MIRTAZAPINE 2020-05 Yes [id number] 15mg TAKE 1 [facility] 15 mg 2-20 TABLET BY ity of tablet 00:00: MOUTH AT [address] MIRZAPINE 2020-05 Yes [id number] 15mg TAKE 1 [facility] 15 mg 2-20 TABLET BY ity of tablet 00:00: [address]TH [address] 2020-05 Yes [id number] 15mg TAKE 1 [facility] 15 mg 2-20 TABLET BY ity of tablet 00:00: MOUTH [address] 2020-05 Yes [id number] 15mg TAKE 1 [facility] 15 mg 2-20 TABLET BY ity of tablet 00:00: MOUTH [address] 2020-05 Yes [id number] 15mg TAKE 1 [facility] 15 mg 2-20 TABLET BY ity of tablet 00:00: MOUTH AT [address] 2020-05 Yes [id number] 15mg TAKE 1 [facility] 15 mg 2-20 TABLET BY ity of tablet 00:00: MOUTH AT [address] 2020-05 Yes [id number] 15mg TAKE 1 [facility] 15 mg 2-20 TABLET BY ity of tablet 00:00: MOUTH AT [address] 2020-05 Yes [id number] 15mg TAKE 1 [facility] 15 mg 2-20 TABLET BY ity of tablet 00:00: MOUTH AT [address] 2020-05 Yes [id number] 15mg TAKE 1 [facility] 15 mg 2-20 TABLET BY ity of tablet 00:00: MOUTH [address] 2020-05 Yes [id number] 15mg TAKE 1 [facility] 15 mg 2-20 TABLET BY ity of tablet 00:00: MOUTH [address] 2020-05 Yes [id number] 15mg TAKE 1 [facility] 15 mg 2-20 TABLET BY ity of tablet 00:00: MOUTH [address] 2020-05 Yes [id number] 15mg TAKE 1 [facility] 15 mg 2-20 TABLET BY ity of tablet 00:00: MOUTH [address] 2020-05 Yes [id number] 15mg TAKE 1 [facility] 15 mg 2-20 TABLET BY ity of tablet 00:00: MOUTH AT [place] [facility] MIRTAZAPINE 2020-05 Yes [id number] 15mg TAKE 1 [facility] 15 mg 2-20 TABLET BY ity of tablet 00:00: MOUTH AT [place] [facility] MIRTAZAPINE 2020-05 Yes [id number] 15mg TAKE 1 Univers 15 mg 2-20 TABLET BY ity of tablet 00:00: MOUTH AT [address] MIRTAZAPINE 2020-05 Yes [id number] 15mg TAKE 1 [facility] 15 mg 2-20 TABLET BY ity of tablet 00:00: MOUTH AT [address] ondansetron Yes [id number] 4mg Take 1 Univers 4 mg 8-06 tablet by ity of disintegrat 00:00: mouth [place] ing tablet 00 every 8 Medica l (eight) Branch hours as needed for Nausea and Vomiting (N/V). ondansetron Yes [id number] 4mg Take 1 Univers 4 mg 8-06 tablet by ity of disintegrat 00:00: mouth [place] ing tablet 00 every 8 Medica l (eight) Branch hours as needed for Nausea and Vomiting (N/V). ondansetron Yes [id number] 4mg Take 1 Univers 4 mg 8-06 tablet by ity of disintegrat 00:00: mouth [place] ing tablet 00 every 8 Medica l (eight) Branch hours as needed for Nausea and Vomiting (N/V). ondansetron Yes [id number] 4mg Take 1 Univers 4 mg 8-06 tablet by ity of disintegrat 00:00: mouth [place] ing tablet 00 every 8 Medica l (eight) Branch hours as needed for Nausea and Vomiting (N/V). ondansetron 0 Yes [id number] 4mg Take 1 Univers 4 mg 8-06 tablet by ity of disintegrat 00:00: mouth [place] ing tablet 00 every 8 Medica l (eight) Branch hours as needed for Nausea and Vomiting (N/V). ondansetron 0 Yes [id number] 4mg Take 1 Univers 4 mg 8-06 tablet by ity of disintegrat 00:00: mouth [place] ing tablet 00 every 8 Medica l (eight) Branch hours as needed for Nausea and Vomiting (N/V). ondansetron 1-0 Yes [id number] 4mg Take 1 Univers 4 mg 8-06 tablet by ity of disintegrat 00:00: mouth [place] ing tablet 00 every 8 Medica l (eight) Branch hours as needed for Nausea and Vomiting (N/V). ondansetron 2020-0 Yes [id number] 4mg Take 1 Univers 4 mg 8-06 tablet by ity of disintegrat 00:00: mouth [place] ing tablet 00 every 8 Medica l (eight) Branch hours as needed for Nausea and Vomiting (N/V). ondansetron 2020-0 Yes [id number] 4mg Take 1 Univers 4 mg 8-06 tablet by ity of disintegrat 00:00: mouth [place] ing tablet 00 every 8 Medica l (eight) Branch hours as needed for Nausea and Vomiting (N/V). ondansetron 2020-0 Yes [id number] 4mg Take 1 Univers 4 mg 8-06 tablet by ity of disintegrat 00:00: mouth [place] ing tablet 00 every 8 Medica l (eight) Branch hours as needed for Nausea and Vomiting (N/V). ondansetron 2020-0 Yes [id number] 4mg Take 1 Univers 4 mg 8-06 tablet by ity of disintegrat 00:00: mouth [place] ing tablet 00 every 8 Medica l (eight) Branch hours as needed for Nausea and Vomiting (N/V). ondansetron 2020-0 Yes [id number] 4mg Take 1 Univers 4 mg 8-06 tablet by ity of disintegrat 00:00: mouth [place] ing tablet 00 every 8 Medica l (eight) Branch hours as needed for Nausea and Vomiting (N/V). ondansetron 2020-0 Yes [id number] 4mg Take 1 Univers 4 mg 8-06 tablet by ity of disintegrat 00:00: mouth [place] ing tablet 00 every 8 Medica l (eight) Branch hours as needed for Nausea and Vomiting (N/V). ondansetron 2020-0 Yes [id number] 4mg Take 1 Univers 4 mg 8-06 tablet by ity of disintegrat 00:00: mouth [place] ing tablet 00 every 8 Medica l (eight) Branch hours as needed for Nausea and Vomiting (N/V). ondansetron 2020-0 Yes [id number] 4mg Take 1 Univers 4 mg 8-06 tablet by ity of disintegrat 00:00: mouth [place] ing tablet 00 every 8 Medica l (eight) Branch hours as needed for Nausea and Vomiting (N/V). ondansetron 2020-0 Yes [id number] 4mg Take 1 Univers 4 mg 8-06 tablet by ity of disintegrat 00:00: mouth [place] ing tablet 00 every 8 Medica l (eight) Branch hours as needed for Nausea and Vomiting (N/V). aspirin 81 0 Yes [id number] 81mg Take 1 U nivers mg chewable 7-07 tablet by ity of tablet 00:00: mouth [place] 00 daily. Medical Branch clopidogreL 2020-0 Yes [id number] 75mg Take 1 Univers 75 mg 7-07 tablet by ity of tablet 00:00: mouth [place] 00 daily. Medical Branch aspirin 81 2020-0 Yes [id number] 81mg Take 1 U nivers mg chewable 7-07 tablet by ity of tablet 00:00: mouth [place] 00 daily. Medical Branch clopidogreL 2020-0 Yes [id number] 75mg Take 1 Univers 75 mg 7-07 tablet by ity of tablet 00:00: mouth [place] 00 daily. Medical Branch aspirin 81 2020-0 Yes [id number] 81mg Take 1 U nivers mg chewable 7-07 tablet by ity of tablet 00:00: mouth [place] 00 daily. Medical Branch clopidogreL 2020-0 Yes [id number] 75mg Take 1 Univers 75 mg 7-07 tablet by ity of tablet 00:00: mouth [place] 00 daily. Medical Branch aspirin 81 2020-0 Yes [id number] 81mg Take 1 U nivers mg chewable 7-07 tablet by ity of tablet 00:00: mouth [place] 00 daily. Medical Branch clopidogreL 2020-0 Yes [id number] 75mg Take 1 Univers 75 mg 7-07 tablet by ity of tablet 00:00: mouth [place] 00 daily. Medical Branch aspirin 81 2020-0 Yes [id number] 81mg Take 1 U nivers mg chewable 7-07 tablet by ity of tablet 00:00: mouth [place] 00 daily. Medical Branch clopidogreL 2020-0 Yes [id number] 75mg Take 1 Univers 75 mg 7-07 tablet by ity of tablet 00:00: mouth [place] 00 daily. Medical Branch aspirin 81 2020-0 Yes [id number] 81mg Take 1 U nivers mg chewable 7-07 tablet by ity of tablet 00:00: mouth [place] 00 daily. Medical Branch clopidogreL 2021-0 Yes [id number] 75mg Take 1 Univers 75 mg 7-07 tablet by ity of tablet 00:00: mouth [place] 00 daily. Medical Branch aspirin 81 2020-0 Yes [id number] 81mg Take 1 U nivers mg chewable 7-07 tablet by ity of tablet 00:00: mouth [place] 00 daily. Medical Branch clopidogreL 202-0 Yes [id number] 75mg Take 1 Univers 75 mg 7-07 tablet by ity of tablet 00:00: mouth [place] 00 daily. Medical Branch aspirin 81 2020-0 Yes [id number] 81mg Take 1 U nivers mg chewable 7-07 tablet by ity of tablet 00:00: mouth [place] 00 daily. Medical Branch clopidogreL 2020-0 Yes [id number] 75mg Take 1 Univers 75 mg 7-07 tablet by ity of tablet 00:00: mouth [place] 00 daily. Medical Branch aspirin 81 2020-0 Yes [id number] 81mg Take 1 U nivers mg chewable 7-07 tablet by ity of tablet 00:00: mouth [place] 00 daily. Medical Branch clopidogreL 2020-0 Yes [id number] 75mg Take 1 Univers 75 mg 7-07 tablet by ity of tablet 00:00: mouth [place] 00 daily. Medical Branch aspirin 81 2020-0 Yes [id number] 81mg Take 1 U nivers mg chewable 7-07 tablet by ity of tablet 00:00: mouth [place] 00 daily. Medical Branch clopidogreL 2021-0 Yes [id number] 75mg Take 1 Univers 75 mg 7-07 tablet by ity of tablet 00:00: mouth [place] 00 daily. Medical Branch aspirin 81 2020-0 Yes [id number] 81mg Take 1 U nivers mg chewable 7-07 tablet by ity of tablet 00:00: mouth [place] 00 daily. Medical Branch clopidogreL 2021-0 Yes [id number] 75mg Take 1 Univers 75 mg 7-07 tablet by ity of tablet 00:00: mouth [place] 00 daily. Medical Branch aspirin 81 2020-0 Yes [id number] 81mg Take 1 U nivers mg chewable 7-07 tablet by ity of tablet 00:00: mouth [place] 00 daily. Medical Branch clopidogreL 2021-0 Yes [id number] 75mg Take 1 [facility] 75 mg 7-07 tablet by ity of tablet 00:00: mouth [place] 00 daily. Medical Branch aspirin 81 1-0 Yes [id number] 81mg Take 1 U nivers mg chewable 7-07 tablet by ity of tablet 00:00: mouth [place] 00 daily. Medical Branch clopidogreL 1-0 Yes [id number] 75mg Take 1 [facility] 75 mg 7-07 tablet by ity of tablet 00:00: mouth [place] 00 daily. Medical Branch aspirin 81 1-0 Yes [id number] 81mg Take 1 U nivers mg chewable 7-07 tablet by ity of tablet 00:00: mouth [place] 00 daily. Medical Branch clopidogreL 1-0 Yes [id number] 75mg Take 1 [facility] 75 mg 7-07 tablet by ity of tablet 00:00: mouth [place] 00 daily. Medical Branch aspirin 81 1-0 Yes [id number] 81mg Take 1 U nivers mg chewable 7-07 tablet by ity of tablet 00:00: mouth [place] 00 daily. Medical Branch clopidogreL 1-0 Yes [id number] 75mg Take 1 Univers 75 mg 7-07 tablet by ity of tablet 00:00: mouth [place] 00 daily. Medical Branch aspirin 81 1-0 Yes [id number] 81mg Take 1 U nivers mg chewable 7-07 tablet by ity of tablet 00:00: mouth [place] 00 daily. Medical Branch clopidogreL 1-0 Yes [id number] 75mg Take 1 Univers 75 mg 7-07 tablet by ity of tablet 00:00: mouth [place] 00 daily. Medical Branch ezetimibe 1-0 Yes [id number] 10mg Take 1 U nivers 10 mg 6-18 tablet by ity of tablet 00:00: mouth [place] 00 daily. Medical Branch furosemide 1-0 Yes [id number] 1 tablet Univers 20 mg 6-18 02 as needed ity of tablet 00:00: for leg [place] 00 swelling Medical Branch ezetimibe 1-0 Yes [id number] 10mg Take 1 U nivers 10 mg 6-18 tablet by ity of tablet 00:00: mouth [place] 00 daily. Medical Branch furosemide 1-0 Yes [id number] 1 tablet Univers 20 mg 6-18 02 as needed ity of tablet 00:00: for leg [place] 00 swelling Medical Branch ezetimibe 1-0 Yes [id number] 10mg Take 1 U nivers 10 mg 6-18 tablet by ity of tablet 00:00: mouth [place] 00 daily. Medical Branch furosemide 2021-0 Yes [id number] 1 tablet Univers 20 mg 6-18 02 as needed ity of tablet 00:00: for leg [place] swelling Medical Branch ezetimibe 2021-0 Yes [id number] 10mg Take 1 U nivers 10 mg 6-18 tablet by ity of tablet 00:00: mouth [place] 00 daily. Medical Branch furosemide 2021-0 Yes [id number] 1 tablet Univers 20 mg 6-18 02 as needed ity of tablet 00:00: for leg swelling Medical Branch ezetimibe 1-0 Yes [id number] 10mg Take 1 U nivers 10 mg 6-18 tablet by ity of tablet 00:00: mouth [place] 00 daily. Medical Branch furosemide 1-0 Yes [id number] 1 tablet Univers 20 mg 6-18 02 as needed ity of tablet 00:00: for leg swelling Medical Branch ezetimibe 1-0 Yes [id number] 10mg Take 1 U nivers 10 mg 6-18 tablet by ity of tablet 00:00: mouth [place] 00 daily. Medical Branch furosemide 1-0 Yes [id number] 1 tablet Univers 20 mg 6-18 02 as needed ity of tablet 00:00: for leg [place] swelling Medical Branch ezetimibe 2021-0 Yes [id number] 10mg Take 1 U nivers 10 mg 6-18 tablet by ity of tablet 00:00: mouth [place] 00 daily. Medical Branch furosemide 2021-0 Yes [id number] 1 tablet Univers 20 mg 6-18 02 as needed ity of tablet 00:00: for leg swelling Medical Branch ezetimibe 2021-0 Yes [id number] 10mg Take 1 U nivers 10 mg 6-18 tablet by ity of tablet 00:00: mouth [place] 00 daily. Medical Branch furosemide 2021-0 Yes [id number] 1 tablet Univers 20 mg 6-18 02 as needed ity of tablet 00:00: for leg [place] swelling Medical Branch ezetimibe 2021-0 Yes [id number] 10mg Take 1 U nivers 10 mg 6-18 tablet by ity of tablet 00:00: mouth [place] 00 daily. Medical Branch furosemide 2020-0 Yes [id number] 1 tablet Univers 20 mg 6-18 02 as needed ity of tablet 00:00: for leg [place] 00 swelling Medical Branch ezetimibe 2020-0 Yes [id number] 10mg Take 1 U nivers 10 mg 6-18 tablet by ity of tablet 00:00: mouth [place] 00 daily. Medical Branch furosemide 2020-0 Yes [id number] 1 tablet [facility] 20 mg 6-18 02 as needed ity of tablet 00:00: for leg [place] 00 swelling Medical Branch ezetimibe 2020-0 Yes [id number] 10mg Take 1 U nivers 10 mg 6-18 tablet by ity of tablet 00:00: mouth [place] 00 daily. Medical Branch furosemide 2020-0 Yes [id number] 1 tablet [facility] 20 mg 6-18 02 as needed ity of tablet 00:00: for leg [place] 00 swelling Medical Branch ezetimibe 2020-0 Yes [id number] 10mg Take 1 U nivers 10 mg 6-18 tablet by ity of tablet 00:00: mouth [place] 00 daily. Medical Branch ezetimibe 2020-0 Yes [id number] 10mg Take 1 U nivers 10 mg 6-18 tablet by ity of tablet 00:00: mouth [place] 00 daily. Medical Branch ezetimibe 2020-0 Yes [id number] 10mg Take 1 U nivers 10 mg 6-18 tablet by ity of tablet 00:00: mouth [place] 00 daily. Medical Branch ezetimibe 2020-0 Yes [id number] 10mg Take 1 U nivers 10 mg 6-18 tablet by ity of tablet 00:00: mouth [place] 00 daily. Medical Branch ezetimibe 2020-0 Yes [id number] 10mg Take 1 U nivers 10 mg 6-18 tablet by ity of tablet 00:00: mouth [place] 00 daily. Medical Branch furosemide 2020-0 2021- No [id number] 1 tablet Univers 20 mg 6-18 -07 [...] by ity of tablet 00:00: mouth at [place] 00 bedtime. Medical Branch atorvastati Yes Coronary 80mg Take 1 Univers n 80 mg 5-06 artery tablet by ity o f tablet 00:00: disease mouth [place] 00 involving bedtime. Medica l [place] [facility] coronary artery of [place] heart without angina pectoris glipiZIDE Yes Type [...] by ity of tablet 00:00: mouth at [place] 00 bedtime. Medical Branch atorvastati Yes Coronary 80mg Take 1 Univers n 80 mg 5-06 artery tablet by ity o f tablet 00:00: disease mouth [place] 00 involving bedtime. 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 Branch coronary artery of [place] heart without angina pectoris SITagliptin 2020- No [...] :00 involving daily for Medi blanquita tablet [place] 30 days. 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 Medical Branch pantoprazol Yes [id number] 40mg Take 1 Univers e 40 mg EC 1-11 tablet by ity of tablet 00:00: mouth 00 daily. Medical Branch pantoprazol Yes [id number] 40mg Take 1 Univers e 40 mg EC 1-11 tablet by ity of tablet 00:00: mouth 00 daily. Medical Branch pantoprazol Yes [id number] 40mg Take 1 Univers e 40 mg EC 1-11 tablet by ity of tablet 00:00: mouth [place] 00 daily. Medical Branch pantoprazol Yes [id number] 40mg Take 1 Univers e 40 mg EC 1-11 tablet by ity of tablet 00:00: mouth [place] 00 daily. Medical Branch pantoprazol Yes [id number] 40mg Take 1 Univers e 40 mg EC 1-11 tablet by ity of tablet 00:00: mouth [place] 00 daily. Medical Branch pantoprazol Yes [id number] 40mg Take 1 Univers e 40 mg EC 1-11 tablet by ity of tablet 00:00: mouth [place] 00 daily. Medical Branch pantoprazol Yes [id number] 40mg Take 1 Univers e 40 mg EC 1-11 tablet by ity of tablet 00:00: mouth [place] 00 daily. Medical Branch pantoprazol Yes [id number] 40mg Take 1 Univers e 40 mg EC 1-11 tablet by ity of tablet 00:00: mouth [place] 00 daily. Medical Branch pantoprazol Yes [id number] 40mg Take 1 Univers e 40 mg EC 1-11 tablet by ity of tablet 00:00: mouth [place] 00 daily. Medical Branch pantoprazol Yes [id number] 40mg Take 1 Univers e 40 mg EC 1-11 tablet by ity of tablet 00:00: mouth [place] 00 daily. Medical Branch pantoprazol Yes [id number] 40mg Take 1 Univers e 40 mg EC 1-11 tablet by ity of tablet 00:00: mouth [place] 00 daily. Medical Branch pantoprazol Yes [id number] 40mg Take 1 Univers e 40 mg EC 1-11 tablet by ity of tablet 00:00: mouth [place] 00 daily. Medical Branch pantoprazol Yes [id number] 40mg Take 1 Univers e 40 mg EC 1-11 tablet by ity of tablet 00:00: mouth [place] 00 daily. Medical Branch pantoprazol Yes [id number] 40mg Take 1 Univers e 40 mg EC 1-11 tablet by ity of tablet 00:00: mouth [place] 00 daily. Medical Branch pantoprazol Yes [id number] 40mg Take 1 Univers e 40 mg [...] as 00 :00 involving bedtime. Medica l [place] [facility] coronary artery of [place] heart without angina pectoris atorvastati 2020- No Coronary 80mg Take 1 Univers n 80 mg 3-20 05-06 artery tablet by ity of tablet 00:00: 00:00 disease mouth at [place] 00 :00 involving bedtime. Medica l [place] [facility] coronary artery of [place] heart without angina pectoris nitroglycer 2018-05 Yes [id number] 1 tab SL Univers in 0.4 mg 0-29 q5min up ity of sublingual 00:00: to 3 doses [place] tablet 00 PRN chest Medical pain, then Branch activate 911. nitroglycer 2018-05 Yes [id number] 1 tab SL Univers in 0.4 mg 0-29 q5min up ity of sublingual 00:00: to 3 doses [place] tablet 00 PRN chest Medical pain, then Branch activate 911. nitroglycer 2018-05 Yes [id number] 1 tab SL Univers in 0.4 mg 0-29 q5min up ity of sublingual 00:00: to 3 doses [place] tablet 00 PRN chest Medical pain, then Branch activate 911. nitroglycer 2018-05 Yes [id number] 1 tab SL [facility] in 0.4 mg 0-29 q5min up ity of sublingual 00:00: to 3 doses [place] tablet 00 PRN chest Medical pain, then Branch activate 911. nitroglycer 2018-05 Yes [id number] 1 tab SL [facility] in 0.4 mg 0-29 q5min up ity of sublingual 00:00: to 3 doses [place] tablet 00 PRN chest Medical pain, then Branch activate 911. nitroglycer 2018-05 Yes [id number] 1 tab SL [facility] in 0.4 mg 0-29 q5min up ity of sublingual 00:00: to 3 doses [place] tablet 00 PRN chest Medical pain, then Branch activate 911. nitroglycer 2018-05 Yes [id number] 1 tab SL [facility] in 0.4 mg 0-29 q5min up ity of sublingual 00:00: to 3 doses [place] tablet 00 PRN chest Medical pain, then Branch activate 911. nitroglycer 2018-05 Yes [id number] 1 tab SL [facility] in 0.4 mg 0-29 q5min up ity of sublingual 00:00: to 3 doses [place] tablet 00 PRN chest Medical pain, then Branch activate 911. nitroglycer 2018-05 Yes [id number] 1 tab SL [facility] in 0.4 mg 0-29 q5min up ity of sublingual 00:00: to 3 doses [place] tablet 00 PRN chest Medical pain, then Branch activate 911. nitroglycer 2018-05 Yes [id number] 1 tab SL [facility] in 0.4 mg 0-29 q5min up ity of sublingual 00:00: to 3 doses [place] tablet 00 PRN chest Medical pain, then Branch activate 911. nitroglycer 2018-05 Yes [id number] 1 tab SL [facility] in 0.4 mg 0-29 q5min up ity of sublingual 00:00: to 3 doses [place] tablet 00 PRN chest Medical pain, then Branch activate 911. nitroglycer 2018-05 Yes [id number] 1 tab SL [facility] in 0.4 mg 0-29 q5min up ity of sublingual 00:00: to 3 doses [place] tablet 00 PRN chest Medical pain, then Branch activate 911. nitroglycer 2018-05 Yes [id number] 1 tab SL [facility] in 0.4 mg 0-29 q5min up ity of sublingual 00:00: to 3 doses [place] tablet 00 PRN chest Medical pain, then Branch activate 911. nitroglycer 2018-05 Yes [id number] 1 tab SL [facility] in 0.4 mg 0-29 q5min up ity of sublingual 00:00: to 3 doses [place] tablet 00 PRN chest Medical pain, then Branch activate 911. nitroglycer 2018-05 Yes [id number] 1 tab SL [facility] in 0.4 mg 0-29 q5min up ity of sublingual 00:00: to 3 doses [place] tablet 00 PRN chest Medical pain, then Branch activate 911. nitroglycer 2018-05 Yes [id number] 1 tab SL [facility] in 0.4 mg [...] n Calcium n Calcium [facility]ir it [facility] Lexapro Lexapro Yes [place] 1 tablet Com mon Horan [facility] Metoprolol Metoprolol Yes [place]ada 1 tablet Common Tartrate Tartrate Horan with food S pirit [facility] Ranexa Ranexa Yes Dada 1 tablet Commo n Horan [facility] Insulin Insulin Yes Dada 60 units Com mon Aspart Prot Aspart Prot Horan BID Spirit & Aspart & Aspart [facility] Aspirin Aspirin Yes [place]ada 1 tablet Com mon [facility] Gabapentin Gabapentin Yes [place]ada 1 tablet Common [facility] Furosemide Furosemide Yes [place] 1 tablet Common [facility] Duloxetine Duloxetine Yes Dada 1 capsule Common HCl HCl [facility] Xanax Xanax Yes Dada 1 tablet Common Horan [facility] Clopidogrel Clopidogrel Yes Dada 1 tablet Common Bisulfate Bisulfate Horan [facility] Metformin Metformin Yes Dada 1 tablet Common HCl HCl Horan with meals [facility] Pantoprazol Pantoprazol Yes Dada 1 tablet Common e Sodium e Sodium Horan [facility] Klor-Con Klor-Con Yes Dada 1 tablet C ommon M10 M10 Horan with food [facility] Duloxetine Duloxetine Yes Dada 1 capsule Common HCl HCl Horan [facility] Levetiracet Levetiracet Yes [place]ada 1 tablet [facility] [place]ada 1 tablet Common Horan as needed [facility] Lexapro Lexapro Yes Dada 1 tablet Com mon [facility] Atorvastati Atorvastati Yes Dada 1 tablet Common n Calcium n Calcium Horan Spir [facility] Clopidogrel Clopidogrel Yes Dada 1 tablet Common Bisulfate Bisulfate Horan Spir [facility] Furosemide Furosemide Yes Dada 1 tablet Common Horan [facility] Immunizations Ordered Filled Immunization Date Status Comments Sour e Immunization Name Name SARS-COV-2 COVID-19 2021-01-17 Completed Unive rsity of PFIZER VACCINE 00:00:00 [facility] SARS-COV-2 COVID-19 2021-01-17 Completed Unive rsity of PFIZER VACCINE 00:00:00 [facility] SARS-COV-2 COVID-19 2021-01-17 Completed Unive rsity of PFIZER VACCINE 00:00:00 [facility] SARS-COV-2 COVID-19 2021-01-17 Completed Unive rsity of PFIZER VACCINE 00:00:00 [facility] SARS-COV-2 COVID-19 2021-01-17 Completed Unive rsity of PFIZER VACCINE 00:00:00 [facility] SARS-COV-2 COVID-19 2021-01-17 Completed Unive rsity of PFIZER VACCINE 00:00:00 [facility] SARS-COV-2 COVID-19 2021-01-17 Completed Unive rsity of PFIZER VACCINE 00:00:00 [facility] SARS-COV-2 COVID-19 2021-01-17 Completed Unive rsity of PFIZER VACCINE 00:00:00 [facility] SARS-COV-2 COVID-19 2021-01-17 Completed Unive rsity of PFIZER VACCINE 00:00:00 [facility] SARS-COV-2 COVID-19 2021-01-17 Completed Unive rsity of PFIZER VACCINE 00:00:00 [facility] SARS-COV-2 COVID-19 2021-01-17 Completed Unive rsity of PFIZER VACCINE 00:00:00 [facility] SARS-COV-2 COVID-19 2021-01-17 Completed Unive rsity of PFIZER VACCINE 00:00:00 [facility] SARS-COV-2 COVID-19 2021-01-17 Completed Unive rsity of PFIZER VACCINE 00:00:00 [facility] SARS-COV-2 COVID-19 2021-01-17 Completed Unive rsity of PFIZER VACCINE 00:00:00 [facility] SARS-COV-2 COVID-19 2021-01-17 Completed Unive rsity of PFIZER VACCINE 00:00:00 [facility] SARS-COV-2 COVID-19 2021-01-17 Completed Unive rsity of PFIZER VACCINE 00:00:00 [facility] Vital Signs Vital Name Observation Time Observation Value Comments Source Systolic blood 2022-04-14 17:05:00 95 mm[Hg] Univer sity of pressure [facility] Diastolic blood 2022-04-14 17:05:00 65 mm[Hg] Unive rsity of pressure [facility] Heart rate 2022-04-14 17:05:00 101 /min [facility] Body temperature 2022-04-14 17:05:00 36.17 Lucero [facility] Body height 2022-04-14 17:05:00 162.6 cm [facility] Body weight 2022-04-14 17:05:00 53.524 kg [facility] BMI 2022-04-14 17:05:00 20.25 kg/m2 [facility] Systolic blood 2022-04-05 14:11:00 137 mm[Hg] [facility] Diastolic blood 2022-04-05 14:11:00 81 mm[Hg] [facility] Heart rate 2022-04-05 14:11:00 110 /min [facility] Body temperature 2022-04-05 14:11:00 36.78 Lucero [facility] Respiratory rate 2022-04-05 14:11:00 21 /min [facility] Oxygen saturation in 2022-04-05 14:11:00 98 /min [facility] Arterial blood by [employer] Pulse oximetry Branch Body height 2022-03-22 21:40:00 162.6 cm [facility] Body weight 2022-03-22 21:40:00 53.524 kg [facility] BMI 2022-03-22 21:40:00 20.25 kg/m2 [facility] Systolic blood 2022-03-29 12:39:00 127 mm[Hg] [facility] Diastolic blood 2022-03-29 12:39:00 72 mm[Hg] [facility] Heart rate 2022-03-29 12:39:00 84 /min [facility] Body temperature 2022-03-29 12:39:00 36.28 Lucero [facility] Respiratory rate 2022-03-29 12:39:00 15 /min [facility] Oxygen saturation in 2022-03-29 12:39:00 94 /min [facility] Arterial blood by [employer] blanquita Pulse oximetry Branch Body height 2022-03-22 21:40:00 162.6 cm [facility] Body weight 2022-03-22 21:40:00 53.524 kg [facility] BMI 2022-03-22 21:40:00 20.25 kg/m2 [facility] Systolic blood 2022-03-28 12:50:00 130 mm[Hg] [facility] Diastolic blood 2022-03-28 12:50:00 66 mm[Hg] [facility] Heart rate 2022-03-28 12:50:00 96 /min [facility] Body temperature 2022-03-28 12:50:00 36.83 Lucero [facility] Respiratory rate 2022-03-28 12:50:00 16 /min [facility] Oxygen saturation in 2022-03-28 12:50:00 94 /min [facility] Arterial blood by [place] [employer] blanquita Pulse oximetry Branch Body height 2022-03-22 21:40:00 162.6 cm [facility] Body weight 2022-03-22 21:40:00 53.524 kg [facility] BMI 2022-03-22 21:40:00 20.25 kg/m2 [facility] Systolic blood 2022-03-25 16:00:00 100 mm[Hg] [facility] Diastolic blood 2022-03-25 16:00:00 62 mm[Hg] [facility] Respiratory rate 2022-03-25 16:00:00 15 /min [facility] Oxygen saturation in 2022-03-25 16:00:00 92 /min [facility] by [place] [facility] Pulse oximetry [facility] Heart rate 2022-03-25 14:19:00 80 /min [facility] Body temperature 2022-03-25 14:19:00 36.28 Lucero [facility] Body height 2022-03-22 21:40:00 162.6 cm [facility] Body weight 2022-03-22 21:40:00 53.524 kg [facility] BMI 2022-03-22 21:40:00 20.25 kg/m2 [facility] Systolic blood 2022-01-12 21:04:00 138 mm[Hg] [facility] Diastolic blood 2022-01-12 21:04:00 86 mm[Hg] [facility] Heart rate 2022-01-12 21:04:00 90 /min [facility] Body weight 2022-01-12 21:04:00 55.702 kg [facility] BMI 2022-01-12 21:04:00 21.08 kg/m2 [facility] Oxygen saturation in 2022-01-12 21:04:00 98 /min [facility] Arterial blood by [facility] Pulse oximetry Branch Heart rate 2020-10-01 20:20:00 60 /min [facility] Systolic blood 2020-10-01 20:20:00 120 mm[Hg] [facility] Diastolic blood 2020-10-01 20:20:00 80 mm[Hg] [facility] Heart rate 2020-10-01 20:20:00 60 /min [facility] Systolic blood 2020-10-01 20:20:00 120 mm[Hg] [facility] Diastolic blood 2020-10-01 20:20:00 80 mm[Hg] [facility] Heart rate 2020-10-01 20:20:00 60 /min [facility] Systolic blood 2020-10-01 20:20:00 120 mm[Hg] [facility] Diastolic blood 2020-10-01 20:20:00 80 mm[Hg] [facility] Systolic blood 2022-03-28 12:50:00 130 mm[Hg] [facility] Diastolic blood 2022-03-28 12:50:00 66 mm[Hg] [facility] Heart rate 2022-03-28 12:50:00 96 /min [facility] Body temperature 2022-03-28 12:50:00 36.83 Lucero [facility] Respiratory rate 2022-03-28 12:50:00 16 /min [facility] Oxygen saturation in 2022-03-28 12:50:00 94 /min [facility] blood by [facility] Pulse oximetry [place] Body height 2022-03-22 21:40:00 162.6 cm [facility] Body weight 2022-03-22 21:40:00 53.524 kg [facility] BMI 2022-03-22 21:40:00 20.25 kg/m2 [facility] Procedures Procedure Date / Time Performing Clinician Source Performed POCT GLUCOSE (AUTOMATED) 2022-04-05 14:09:00 Rachelle Guthrie [facility] POCT GLUCOSE (AUTOMATED) 2022-04-05 10:41:00 Rachelle Guthrie [facility] POCT GLUCOSE (AUTOMATED) 2022-04-05 06:16:00 Rachelle Guthrie [facility] POCT GLUCOSE (AUTOMATED) 2022-04-05 03:21:00 Rachelle Guthrie [facility] COVID-19 (ID NOW RAPID 2022-04-04 23:01:00 Carine Edouard [facility] TESTING) Medical [place] LAB ONLY COVID 2022-04-04 23:01:00 [place] POCT GLUCOSE (AUTOMATED) 2022-04-04 22:22:00 Rachelle Guthrie [facility] POCT GLUCOSE (AUTOMATED) 2022-04-04 18:09:00 Rachelle Guthrie [facility] POCT GLUCOSE (AUTOMATED) 2022-04-04 14:11:00 Rachelle Guthrie [facility] PHOSPHORUS 2022-04-04 11:54:00 Burton [facility] MAGNESIUM 2022-04-04 11:54:00 [facility] BASIC METABOLIC PANEL (NA, 2022-04-04 11:54:00 Nara Manrique [facility] K, CL, CO2, GLUCOSE, BUN, Medica l Branch CREATININE, CA) CBC WITH DIFF 2022-04-04 11:54:[facility] ([facility]) 2022-04-04 10:17:00 [...] 2022-04-03 13:58:00 Sweet, Rachelle [facility] POCT GLUCOSE (AUTOMATED) 2022-04-03 10:29:00 Sweet, Rachelle [facility] POCT GLUCOSE (AUTOMATED) 2022-04-03 05:30:00 Sweet, Rachelle [facility] POCT GLUCOSE (AUTOMATED) 2022-04-03 00:43:00 [...] METABOLIC PANEL (NA, 2022-04-01 16:56:00 Nara Manrique [facility] K, CL, CO2, GLUCOSE, BUN, Medica l Branch CREATININE, CA) POCT GLUCOSE (AUTOMATED) 2022-04-01 14:54:00 Rachelle Guthrie [facility] HB ECG ROUTINE & RHYTHM 2022-04-01 13:47:15 Burton [facility] POCT GLUCOSE (AUTOMATED) 2022-04-01 12:23:00 Rachelle Guthrie [facility] MAGNESIUM 2022-04-01 [facility] (NA, 2022-04-01 11:09:00 Nara Manrique [facility] K, CL, CO2, GLUCOSE, BUN, Medica l Branch CREATININE, CA) CBC WITH DIFF 2022-04-01 11:08:00 [facility] POCT GLUCOSE (AUTOMATED) 2022-04-01 09:03:00 Rachelle Guthrie [facility] POCT GLUCOSE (AUTOMATED) 2022-04-01 03:43:00 [facility] POCT GLUCOSE (AUTOMATED) 2022-04-01 01:19:00 [facility] POCT GLUCOSE (AUTOMATED) 2022-04-01 00:55:00 [facility]) 2022-03-31 20:58:00 [facility] POCT GLUCOSE (AUTOMATED) 2022-03-31 16:59:00 Rachelle Guthrieity of [facility] PHOSPHORUS 2022-03-31 16:00[facility] 2022-03-31 16:00:00 [facility] BASIC METABOLIC PANEL (NA, 2022-03-31 16:00:00 Nara Manrique [facility] K, CL, CO2, GLUCOSE, BUN, Medica l Branch CREATININE, CA) POCT GLUCOSE (AUTOMATED) 2022-03-31 12:43:00 [facility]FF 2022-03-31 11:06:00 [facility] POCT GLUCOSE (AUTOMATED) 2022-03-31 08:59:00 Sweet, Rachelle [facility] POCT GLUCOSE (AUTOMATED) 2022-03-31 05:59:00 Sweet, Rachelle [facility] POCT GLUCOSE (AUTOMATED) 2022-03-31 05:29:00 Sweet, Rachelle Uni [facility] of [facility] POCT GLUCOSE (AUTOMATED) 2022-03-31 04:56:00 Sweet, Rachelle Uni [facility] of [facility] POCT GLUCOSE (AUTOMATED) 2022-03-31 00:58:00 Sweet, Rachelle Uni [facility] of [facility] POCT GLUCOSE (AUTOMATED) 2022-03-30 21:15:00 Sweet, Rachelle [facility] of [facility] POCT GLUCOSE (AUTOMATED) 2022-03-30 21:15:00 Sweet, Rachelle [facility] POCT GLUCOSE (AUTOMATED) 2022-03-30 16:28:00 Sweet, Rachelle [facility] POCT GLUCOSE (AUTOMATED) 2022-03-30 16:28:00 Sweet, Rachelle Uni [facility] POCT GLUCOSE (AUTOMATED) 2022-03-30 12:51:00 Sweet, Rachelle [facility] POCT GLUCOSE (AUTOMATED) 2022-03-30 12:51:00 Sweet, Rachelle [facility] CBC WITH DIFF 2022-03-30 10:49:00 [facility] CBC WITH DIFF 2022-03-30 10:49:00 Burton [facility] MAGNESIUM 2022-03-30 09:28:00 Burton [facility] BASIC METABOLIC PANEL (NA, 2022-03-30 09:28:00 [facility], GLUCOSE, BUN, Medica l Branch CREATININE, CA) MAGNESIUM 2022-03-30 09:28:00 [facility] BASIC METABOLIC PANEL (NA, 2022-03-30 09:28:00 Nara Manrique [facility] K, CL, CO2, GLUCOSE, BUN, Medica l Branch CREATININE, CA) POCT GLUCOSE (AUTOMATED) 2022-03-30 08:56:00 [facility]) 2022-03-30 08:56:00 [facility] ([facility]OMATED) 2022-03-30 04:45:00 Jerri, [facility]) 2022-03-30 04:45:00 [facility] ([facility]OMATED) 2022-03-30 00:58:00 [facility]ATED) 2022-03-30 00:58:00 [facility]ATED) 2022-03-29 21:49:00 Jerri Rachelle Philip [facility] POCT GLUCOSE (AUTOMATED) 2022-03-29 21:49:00 Jerri Rachelle [facility] CBC WITH DIFF 2022-03-29 17:51:00 [facility] CBC WITH DIFF 2022-03-29 17:51:00 Gonzalez [facility] CBC WITH DIFF 2022-03-29 17:51:00 Gonzalez [facility] TYPE AND SCREEN 2022-03-29 15:55:00 Tyler [facility] TYPE AND SCREEN 2022-03-29 [facility]22-03-29 [facility]:55[facility]G+COOX+NA+K+GLU+CA2+ 2022-03-29 15:54:00 Rachelle Guthrie [facility] ABG+COOX+NA+K+GLU+CA2+ 2022-03-29 15:54:00 Rachelle Guthrie [facility] ABOVE THE KNEE AMPUTATION 2022-03-29 14:17:00 Anuj Scottity [facility] ABOVE THE KNEE AMPUTATION 2022-03-29 14:17:00 Tyler Un iversity [facility] HB ECG ROUTINE & RHYTHM 2022-03-29 13:11:51 [facility] (AUTOMATED) 2022-03-29 13:07:00 Jerri, Rachelle [facility] POCT GLUCOSE (AUTOMATED) 2022-03-29 13:07:00 Sweet, Rachelle [facility] POCT GLUCOSE (AUTOMATED) 2022-03-29 13:07:00 Sweet, Rachelle [facility] POCT GLUCOSE (AUTOMATED) 2022-03-29 09:19:00 Sweet, Rachelle [facility] POCT GLUCOSE (AUTOMATED) 2022-03-29 09:19:00 Sweet, Rachelle [facility] POCT GLUCOSE (AUTOMATED) 2022-03-29 09:19:00 Jerri, Rachelle [facility] [...] 2022-03-28 21:45:00 Rachelle Guthrie Uni [facility] CARDIAC CATHETERIZATION 2022-03-28 20:01:49 Zach, Mostafa [facility] CARDIAC CATHETERIZATION 2022-03-28 20:01:49 Zach, Mostafa [facility] CARDIAC CATHETERIZATION 2022-03-28 20:01:49 Zach, Mostafa [facility] [place] Tyrel Ahmed [facility] CARDIAC CATHETERIZATION 2022-03-28 20:01:49 Zach, Mostafa [facility] [place] Tyrel Ahmed [facility] CARDIAC CATHETERIZATION 2022-03-28 20:01:49 Zach, Mostafa [facility] CARDIAC CATHETERIZATION 2022-03-28 20:01:49 Zach, Mostafa Uni vers[facility] of [facility] Medical [facility] POCT GLUCOSE (AUTOMATED) 2022-03-28 12:52:00 George Barrett [facility] POCT GLUCOSE (AUTOMATED) 2022-03-28 12:52:00 George Barrett [facility] POCT GLUCOSE (AUTOMATED) 2022-03-28 12:52:00 George Barrett [facility] POCT GLUCOSE (AUTOMATED) 2022-03-28 12:52:00 George Barrett [facility] POCT GLUCOSE (AUTOMATED) 2022-03-28 12:52:00 George Barrett [facility] CBC WITH DIFF 2022-03-28 10:17:00 [facility] COMP. METABOLIC PANEL 2022-03-28 10:17:00 [facility] ([id number]) Medical Branch MAGNESIUM 2022-03-28 10:17:00 [facility] MAGNESIUM 2022-03-28 10:17:00 [facility] COMP. METABOLIC PANEL 2022-03-28 10:17:00 [facility] ([id number]) [facility] CBC WITH DIFF 2022-03-28 10:17:00 [place] [facility] MAGNESIUM 2022-03-28 10:17:00 [facility] COMP. METABOLIC PANEL 2022-03-28 10:17:00 [facility] ([id number]) [facility] CBC WITH DIFF 2022-03-28 10:17:00 [place] [facility] MAGNESIUM 2022-03-28 10:17:00 [facility] COMP. METABOLIC PANEL 2022-03-28 10:17:00 [facility] ([id number]) [facility] CBC WITH DIFF 2022-03-28 10:17:00 [facility] MAGNESIUM 2022-03-28 10:17:00 [facility] COMP. METABOLIC PANEL 2022-03-28 10:17:00 [facility] ([id number]) [facility] CBC WITH DIFF 2022-03-28 10:17:00 [facility] POCT GLUCOSE (AUTOMATED) 2022-03-28 09:22:00 George Barrett [facility] POCT GLUCOSE (AUTOMATED) 2022-03-28 09:22:00 George Barrett [facility] POCT GLUCOSE (AUTOMATED) 2022-03-28 09:22:00 George Barrett [facility] POCT GLUCOSE (AUTOMATED) 2022-03-28 09:22:00 George Barrett [facility] POCT GLUCOSE (AUTOMATED) 2022-03-28 09:22:00 George Barrett [facility] POCT GLUCOSE (AUTOMATED) 2022-03-28 05:21:00 George Barrett [facility] POCT GLUCOSE (AUTOMATED) 2022-03-28 05:21:00 George Barrett [facility] POCT GLUCOSE (AUTOMATED) 2022-03-28 05:21:00 George Barrett [facility] POCT GLUCOSE (AUTOMATED) 2022-03-28 05:21:00 George Barrett [facility] POCT GLUCOSE (AUTOMATED) 2022-03-28 05:21:00 George Barrett [facility] POCT GLUCOSE (AUTOMATED) 2022-03-28 04:45:00 Georeg Barrett [facility] POCT GLUCOSE (AUTOMATED) 2022-03-28 04:45:00 George Barrett [facility] POCT GLUCOSE (AUTOMATED) 2022-03-28 04:45:00 George Barrett [facility] POCT GLUCOSE (AUTOMATED) 2022-03-28 04:45:00 George Barrett [facility] POCT GLUCOSE (AUTOMATED) 2022-03-28 04:45:00 George Barrett [facility] POCT GLUCOSE (AUTOMATED) 2022-03-28 01:29:00 George Barrett [facility] POCT GLUCOSE (AUTOMATED) 2022-03-28 01:29:00 George Barrett [facility] POCT GLUCOSE (AUTOMATED) 2022-03-28 01:29:00 George Barrett [facility] POCT GLUCOSE (AUTOMATED) 2022-03-28 01:29:00 George Barrett [facility] POCT GLUCOSE (AUTOMATED) 2022-03-28 01:29:00 George Barrett [facility] POCT GLUCOSE (AUTOMATED) 2022-03-27 20:43:00 George Barrett [facility] POCT GLUCOSE (AUTOMATED) 2022-03-27 20:43:00 George Barrett [facility] POCT GLUCOSE (AUTOMATED) 2022-03-27 20:43:00 George Barrett [facility] POCT GLUCOSE (AUTOMATED) 2022-03-27 20:43:00 George Barrett [facility] POCT GLUCOSE (AUTOMATED) 2022-03-27 20:43:00 George Barrett [facility] POCT GLUCOSE (AUTOMATED) 2022-03-27 17:35:00 George Barrett [facility] POCT GLUCOSE (AUTOMATED) 2022-03-27 17:35:00 George Barrett [facility] POCT GLUCOSE (AUTOMATED) 2022-03-27 17:35:00 George Barrett [facility] POCT GLUCOSE (AUTOMATED) 2022-03-27 17:35:00 George Barrett [facility] POCT GLUCOSE (AUTOMATED) 2022-03-27 17:35:00 George Barrett [facility] POCT GLUCOSE (AUTOMATED) 2022-03-27 12:34:00 George Barrett [facility] POCT GLUCOSE (AUTOMATED) 2022-03-27 12:34:00 George Barrett [facility] POCT GLUCOSE (AUTOMATED) 2022-03-27 12:34:00 George Barrett [facility] POCT GLUCOSE (AUTOMATED) 2022-03-27 12:34:00 George Barrett [facility] POCT GLUCOSE (AUTOMATED) 2022-03-27 12:34:00 George Barrett [facility] POCT GLUCOSE (AUTOMATED) 2022-03-27 09:14:00 George Barrett [facility] POCT GLUCOSE (AUTOMATED) 2022-03-27 09:14:00 George Barrett [facility] POCT GLUCOSE (AUTOMATED) 2022-03-27 09:14:00 George Barrett [facility] POCT GLUCOSE (AUTOMATED) 2022-03-27 09:14:00 George Barrett [facility] POCT GLUCOSE (AUTOMATED) 2022-03-27 09:14:00 George Barrett [facility] CBC WITH DIFF 2022-03-27 08:[facility] 2022-03-27 08:58:00 [facility] CBC WITH DIFF 2022-03-27 08:58:00 Mally [facility] CBC WITH DIFF 2022-03-27 08:58:00 Mally [facility] CBC WITH DIFF 2022-03-27 08:58:00 Dontrellsamir [facility] POCT GLUCOSE (AUTOMATED) 2022-03-27 05:07:00 George Barrett [facility] POCT GLUCOSE (AUTOMATED) 2022-03-27 05:07:00 George Barrett [facility] POCT GLUCOSE (AUTOMATED) 2022-03-27 05:07:00 George Barrett [facility] POCT GLUCOSE (AUTOMATED) 2022-03-27 05:07:00 George Barrett [facility] POCT GLUCOSE (AUTOMATED) 2022-03-27 05:07:00 George Barrett [facility] POCT GLUCOSE (AUTOMATED) 2022-03-27 00:42:00 George Barrett [facility] POCT GLUCOSE (AUTOMATED) 2022-03-27 00:42:00 George Barrett [facility] POCT GLUCOSE (AUTOMATED) 2022-03-27 00:42:00 George Barrett [facility] POCT GLUCOSE (AUTOMATED) 2022-03-27 00:42:00 George Barrett [facility] POCT GLUCOSE (AUTOMATED) 2022-03-27 00:42:00 George Barrett [facility] PREPARE PACKED RBC 2022-03-26 [facility]:09[facility]22-[facility]-26 [facility]22-[facility]-26 [facility]:25[facility]-26 22:25[facility] 2022-03-26 22:25:00 [facility] HB ABO GROUPING 2022-03-26 22:25:00 [facility] HB ABO GROUPING 2022-03-26 22:25:00 [facility] COVID-19 (ID NOW RAPID 2022-03-26 22:24:00 Sahibzada, [facility] TESTING) Cr [facility] LAB ONLY COVID 2022-03-26 22:24:00 [facility], [facility] INTERPRETATION [facility] Medical Branch COVID-19 (ID NOW RAPID 2022-03-26 22:24:00 Sahibzada, [facility] TESTING) Cr Medical [facility] LAB ONLY COVID 2022-03-26 22:24:00 [facility] INTERPRETATION [facility]ly [facility] COVID-19 (ID NOW RAPID 2022-03-26 22:24:00 Sahzada, [facility] TESTING) [facility] LAB ONLY COVID 2022-03-26 22:24:00 [facility], [facility] INTERPRETATION [facility]ly [facility] COVID-19 (ID NOW RAPID 2022-03-26 22:24:00 Sahibzada, [facility] TESTING) [facility] LAB ONLY COVID 2022-03-26 22:24:00 [facility] INTERPRETATION [facility]ly [facility] COVID-19 (ID NOW RAPID 2022-03-26 22:24:00 Sahibzada, [facility] TESTING) [facility] LAB ONLY COVID 2022-03-26 22:24:00 [facility], [facility] INTERPRETATION [facility]ly [facility] POCT GLUCOSE (AUTOMATED) 2022-03-26 21:39:00 George [facility] POCT GLUCOSE (AUTOMATED) 2022-03-26 21:39:00 George [facility] POCT GLUCOSE (AUTOMATED) 2022-03-26 21:39:00 George Barrett [facility] POCT GLUCOSE (AUTOMATED) 2022-03-26 21:39:00 George Barrett [facility] POCT GLUCOSE (AUTOMATED) 2022-03-26 21:39:00 George Barrett [facility] POCT GLUCOSE (AUTOMATED) 2022-03-26 17:34:00 George Barrett [facility] POCT GLUCOSE (AUTOMATED) 2022-03-26 17:34:00 George Barrett [facility] POCT GLUCOSE (AUTOMATED) 2022-03-26 17:34:00 George Barrett [facility] POCT GLUCOSE (AUTOMATED) 2022-03-26 17:34:00 George [facility] POCT GLUCOSE (AUTOMATED) 2022-03-26 17:34:00 George [facility] POCT GLUCOSE (AUTOMATED) 2022-03-26 12:27:00 George [facility] POCT GLUCOSE (AUTOMATED) 2022-03-26 12:27:00 George [facility] POCT GLUCOSE (AUTOMATED) 2022-03-26 12:27:00 [facility] POCT GLUCOSE (AUTOMATED) 2022-03-26 12:27:00 [facility] POCT GLUCOSE (AUTOMATED) 2022-03-26 12:27:00 [facility] COMP. METABOLIC PANEL 2022-03-26 09:29:00 [facility] ([id number]) [facility] Clinic CBC WITH DIFF 2022-03-26 09:29:00 [facility] MAGNESIUM 2022-03-26 09:29:00 [facility] MAGNESIUM 2022-03-26 09:29:00 [facility] COMP. METABOLIC PANEL 2022-03-26 09:29:00 [facility] ([id number]) Medical Branch CBC WITH DIFF 2022-03-26 09:29:00 [facility] MAGNESIUM 2022-03-26 09:29:00 [facility] COMP. METABOLIC PANEL 2022-03-26 09:29:00 Javan [facility] ([id number]) Medical Branch CBC WITH DIFF 2022-03-26 09:29:00 [facility] MAGNESIUM 2022-03-26 09:29[facility] 2022-03-26 09:29:00 [facility] ([id number]) Medical Branch CBC WITH DIFF 2022-03-26 09:29:00 [facility] MAGNESIUM 2022-03-26 09:29:00 [facility] COMP. METABOLIC PANEL 2022-03-26 09:29:00 [place] [facility] ([id number]) Medical Branch CBC WITH DIFF 2022-03-26 09:29:00 [facility] POCT GLUCOSE (AUTOMATED) 2022-03-26 09:21:00 [facility] POCT GLUCOSE (AUTOMATED) 2022-03-26 09:21:00 [facility] POCT GLUCOSE (AUTOMATED) 2022-03-26 09:21:00 [facility] POCT GLUCOSE (AUTOMATED) 2022-03-26 09:21:00 [facility] POCT GLUCOSE (AUTOMATED) 2022-03-26 09:21:00 [facility] POCT GLUCOSE (AUTOMATED) 2022-03-26 04:57:00 [facility] POCT GLUCOSE (AUTOMATED) 2022-03-26 04:57:00 [facility] POCT GLUCOSE (AUTOMATED) 2022-03-26 04:57:00 [facility] POCT GLUCOSE (AUTOMATED) 2022-03-26 04:57:00 [facility] POCT GLUCOSE (AUTOMATED) 2022-03-26 04:57:00 [facility] POCT GLUCOSE (AUTOMATED) 2022-03-26 01:14:00 [facility] POCT GLUCOSE (AUTOMATED) 2022-03-26 01:14:00 [facility] POCT GLUCOSE (AUTOMATED) 2022-03-26 01:14:00 [facility] POCT GLUCOSE (AUTOMATED) 2022-03-26 01:14:00 [facility] POCT GLUCOSE (AUTOMATED) 2022-03-26 01:14:00 [facility] POCT GLUCOSE (AUTOMATED) 2022-03-25 21:10:00 [facility] POCT GLUCOSE (AUTOMATED) 2022-03-25 21:10:00 [facility] POCT GLUCOSE (AUTOMATED) 2022-03-25 21:10:00 [facility] POCT GLUCOSE (AUTOMATED) 2022-03-25 21:10:00 [facility] POCT GLUCOSE (AUTOMATED) 2022-03-25 21:10:00 [facility] POCT GLUCOSE (AUTOMATED) 2022-03-25 18:03:00 [facility] POCT GLUCOSE (AUTOMATED) 2022-03-25 18:03:00 [facility] POCT GLUCOSE (AUTOMATED) 2022-03-25 18:03:00 [facility] POCT GLUCOSE (AUTOMATED) 2022-03-25 18:03:00 [facility] POCT GLUCOSE (AUTOMATED) 2022-03-25 18:03:00 [facility] POCT GLUCOSE (AUTOMATED) 2022-03-25 14:26:00 [facility] POCT GLUCOSE (AUTOMATED) 2022-03-25 14:26:00 [facility] POCT GLUCOSE (AUTOMATED) 2022-03-25 14:26:00 [facility] POCT GLUCOSE (AUTOMATED) 2022-03-25 14:26:00 [facility] POCT GLUCOSE (AUTOMATED) 2022-03-25 14:26:00 [facility] FL TIME OR 2022-03-25 14:15:00 [facility] (NON-REPORTABLE) [facility] FL TIME OR 2022-03-25 14:15:00 [facility] (NON-REPORTABLE) Cr Medical Branch FL TIME OR 2022-03-25 14:15:00 [facility] (NON-REPORTABLE) Cr Medical [facility] FL TIME OR 2022-03-25 14:15:00 [facility] (NON-REPORTABLE) [facility] FL TIME OR 2022-03-25 14:15:00 [facility] (NON-REPORTABLE) [facility] ARTERIOGRAM 2022-03-25 12:30:00 [facility] ARTERIOGRAM 2022-03-25 12:30:00 [facility] ARTERIOGRAM 2022-03-25 12:30:00 [facility] CBC WITH DIFF 2022-03-25 09:24:00 Nara Manrique [facility] BASIC METABOLIC PANEL (NA, 2022-03-25 09:24:00 Nara Manrique [facility] K, CL, CO2, GLUCOSE, BUN, Medica l Branch CREATININE, CA) MAGNESIUM 2022-03-25 09:24:00 Nara Manrique [facility] PHOSPHORUS 2022-03-25 09:24:00 [facility] 2022-03-25 09:24:00 [facility]ara [facility] PHOSPHORUS 2022-03-25 09:24:00 [facility] MAGNESIUM 2022-03-25 09:24:00 [facility] BASIC METABOLIC PANEL (NA, 2022-03-25 09:24:00 [facility] [place] [facility], CL, CO2, GLUCOSE, BUN, Medica l Branch CREATININE, CA) CBC WITH DIFF 2022-03-25 09:24:00 [facility] PROTHROMBIN TIME / INR 2022-03-25 09:24:00 Nara Manrique [facility] PHOSPHORUS 2022-03-25 09:24:00 [facility] MAGNESIUM 2022-03-25 09:24:00 [facility] BASIC METABOLIC PANEL (NA, 2022-03-25 09:24:00 Nara Man[facility] [place] K, CL, CO2, GLUCOSE, BUN, Medica l Branch CREATININE, CA) CBC WITH DIFF 2022-03-25 09:24:00 [facility] PROTHROMBIN TIME / INR 2022-03-25 09:24:00 Nara Manrique [facility] PHOSPHORUS 2022-03-25 09:24:00 [facility] 2022-03-25 09:24:00 [facility] BASIC METABOLIC PANEL (NA, 2022-03-25 09:24:00 Nara Man[facility] [place] K, CL, CO2, GLUCOSE, BUN, Medica l Branch CREATININE, CA) CBC WITH DIFF 2022-03-25 09:24:00 [facility] PROTHROMBIN TIME / INR 2022-03-25 09:24:00 Nara Manrique [facility] PHOSPHORUS 2022-03-25 09:24:00 [facility] 2022-03-25 09:24:00 [facility] BASIC METABOLIC PANEL (NA, 2022-03-25 09:24:00 Nara Manrique [facility] K, CL, CO2, GLUCOSE, BUN, Medica l Branch CREATININE, CA) CBC WITH DIFF 2022-03-25 09:24:00 [facility] PROTHROMBIN TIME / INR 2022-03-25 09:24:00 Priscilla Manriquessa [facility] POCT GLUCOSE (AUTOMATED) 2022-03-25 09:01:00 [facility] POCT GLUCOSE (AUTOMATED) 2022-03-25 09:01:00 [facility] POCT GLUCOSE (AUTOMATED) 2022-03-25 09:01:00 [facility] POCT GLUCOSE (AUTOMATED) 2022-03-25 09:01:00 [facility] POCT GLUCOSE (AUTOMATED) 2022-03-25 09:01:00 [facility] POCT GLUCOSE (AUTOMATED) 2022-03-25 04:14:00 [facility] POCT GLUCOSE (AUTOMATED) 2022-03-25 04:14:00 [facility] POCT GLUCOSE (AUTOMATED) 2022-03-25 04:14:00 [facility] POCT GLUCOSE (AUTOMATED) 2022-03-25 04:14:00 [facility] POCT GLUCOSE (AUTOMATED) 2022-03-25 04:14:00 [facility] POCT GLUCOSE (AUTOMATED) 2022-03-25 01:32:00 [facility] POCT GLUCOSE (AUTOMATED) 2022-03-25 01:32:00 [facility] POCT GLUCOSE (AUTOMATED) 2022-03-25 01:32:00 [facility] POCT GLUCOSE (AUTOMATED) 2022-03-25 01:32:00 [facility] Barrett [facility] POCT GLUCOSE (AUTOMATED) 2022-03-25 01:32:00 [facility] POCT GLUCOSE (AUTOMATED) 2022-03-25 01:23:00 [facility] POCT GLUCOSE (AUTOMATED) 2022-03-25 01:23:00 [facility] POCT GLUCOSE (AUTOMATED) 2022-03-25 01:23:00 [facility] POCT GLUCOSE (AUTOMATED) 2022-03-25 01:23:00 [facility] POCT GLUCOSE (AUTOMATED) 2022-03-25 01:23:00 [facility] POCT GLUCOSE (AUTOMATED) 2022-03-24 23:01:00 [facility] POCT GLUCOSE (AUTOMATED) 2022-03-24 23:01:00 [facility] POCT GLUCOSE (AUTOMATED) 2022-03-24 23:01:00 [facility] POCT GLUCOSE (AUTOMATED) 2022-03-24 23:01:00 [facility] POCT GLUCOSE (AUTOMATED) 2022-03-24 23:01:00 [facility] POCT GLUCOSE (AUTOMATED) 2022-03-24 22:00:00 [facility] POCT GLUCOSE (AUTOMATED) 2022-03-24 22:00:00 [facility] POCT GLUCOSE (AUTOMATED) 2022-03-24 22:00:00 [facility] POCT GLUCOSE (AUTOMATED) 2022-03-24 22:00:00 [facility] POCT GLUCOSE (AUTOMATED) 2022-03-24 22:00:00 [facility] POCT GLUCOSE (AUTOMATED) 2022-03-24 17:05:00 [facility] POCT GLUCOSE (AUTOMATED) 2022-03-24 17:05:00 [facility] POCT GLUCOSE (AUTOMATED) 2022-03-24 17:05:00 [facility] POCT GLUCOSE (AUTOMATED) 2022-03-24 17:05:00 [facility] POCT GLUCOSE (AUTOMATED) 2022-03-24 17:05:00 [facility] TRANSTHORACIC ECHO (TTE) 2022-03-24 15:42:00 Ricki, [facility] [place] COMPLETE W/ CONTRAST Medical [facility] TRANSTHORACIC ECHO (TTE) 2022-03-24 15:42:00 Ricki, [facility] [place] COMPLETE W/ CONTRAST Medical Bra [facility] TRANSTHORACIC ECHO (TTE) 2022-03-24 15:42:00 Ricki, [facility] [place] COMPLETE W/ CONTRAST Medical Bra [facility] TRANSTHORACIC ECHO (TTE) 2022-03-24 15:42:00 Ricki, [facility] [place] COMPLETE W/ CONTRAST Medical Bra [facility] TRANSTHORACIC ECHO (TTE) 2022-03-24 15:42:00 Ricki, [facility] [place] COMPLETE W/ CONTRAST Medical Bra [facility] POCT GLUCOSE (AUTOMATED) 2022-03-24 12:58:00 [facility] POCT GLUCOSE (AUTOMATED) 2022-03-24 12:58:00 [facility] POCT GLUCOSE (AUTOMATED) 2022-03-24 12:58:00 [facility] POCT GLUCOSE (AUTOMATED) 2022-03-24 12:58:00 [facility] POCT GLUCOSE (AUTOMATED) 2022-03-24 12:58:00 [facility] BASIC METABOLIC PANEL (NA, 2022-03-24 10:58:00 Nara Manrique [facility] K, CL, CO2, GLUCOSE, BUN, Medica l Branch CREATININE, CA) MAGNESIUM 2022-03-24 10:58:00 [facility] PHOSPHORUS 2022-03-24 10:58:00 [facility] PHOSPHORUS 2022-03-24 10:58:00 [facility] MAGNESIUM 2022-03-24 10:58:00 [facility] (NA, 2022-03-24 10:58:00 [facility] [place] K, CL, CO2, GLUCOSE, BUN, Medica l Branch CREATININE, CA) PHOSPHORUS 2022-03-24 10:58:00 [facility] MAGNESIUM 2022-03-24 10:58:00 [facility] BASIC METABOLIC PANEL (NA, 2022-03-24 10:58:00 Nara Manrique [facility] [place] K, CL, CO2, GLUCOSE, BUN, Medica l Branch CREATININE, CA) PHOSPHORUS 2022-03-24 10:58:00 [facility]22-03-24 10:58:00 [facility] BASIC METABOLIC PANEL (NA, 2022-03-24 10:58:00 [place] Nara [facility] [place] K, CL, CO2, GLUCOSE, BUN, Medica l Branch CREATININE, CA) PHOSPHORUS 2022-03-24 10:58:00 [facility] MAGNESIUM 2022-03-24 10:58:00 [facility] BASIC MET[facility]OLIC PANEL (NA, 2022-03-24 10:58:00 [facility] Nara [facility] [place] K, CL, CO2, GLUCOSE, BUN, Medica l Branch CREATININE, CA) POCT GLUCOSE (AUTOMATED) 2022-03-24 01:07:00 [facility] POCT GLUCOSE (AUTOMATED) 2022-03-24 01:07:00 George Barrett [facility] POCT GLUCOSE (AUTOMATED) 2022-03-24 01:07:00 George Barrett [facility] POCT GLUCOSE (AUTOMATED) 2022-03-24 01:07:00 George Barrett [facility] POCT GLUCOSE (AUTOMATED) 2022-03-24 01:07:00 George Barrett [facility] MR FOOT LEFT W WO CONTRAST 2022-03-23 23:25:47 ShayyMaximo liao U [facility] MR FOOT LEFT W WO CONTRAST 2022-03-23 23:25:47 ShayyMaximo liao U [facility] MR FOOT LEFT W WO CONTRAST 2022-03-23 23:25:47 ShayyMaximo liao [facility] MR FOOT LEFT W WO CONTRAST 2022-03-23 23:25:47 ShayyMaximo liao [facility] MR FOOT LEFT W WO CONTRAST 2022-03-23 23:25:47 Maximo Lucas [facility] POCT GLUCOSE (AUTOMATED) 2022-03-23 22:11:00 George Barrett [facility] POCT GLUCOSE (AUTOMATED) 2022-03-23 22:11:00 George Barrett [facility] POCT GLUCOSE (AUTOMATED) 2022-03-23 22:11:00 George Barrett [facility] POCT GLUCOSE (AUTOMATED) 2022-03-23 22:11:00 George Barrett [facility] POCT GLUCOSE (AUTOMATED) 2022-03-23 22:11:00 George Barrett [facility] HOWARD MULTI LEVEL - BY 2022-03-23 20:42:45 Jeffrey Bal [facility] VASCULAR LAB [facility] HOWARD MULTI LEVEL - BY 2022-03-23 20:42:45 Jeffrey Bal [facility] VASCULAR LAB [facility] HOWARD MULTI LEVEL - BY 2022-03-23 20:42:45 Jeffrey Bal [facility] VASCULAR LAB [facility] HOWARD MULTI LEVEL - BY 2022-03-23 20:42:45 Jeffrey Bal [facility] VASCULAR LAB [facility] HOWARD MULTI LEVEL - BY 2022-03-23 20:42:45 Jeffrey Bal [facility] VASCULAR LAB [facility] XR BONE SURVEY LTD 2022-03-23 18:11:00 Thierno Fatima [facility] XR BONE SURVEY LTD 2022-03-23 18:11:00 Thierno Fatima [facility] XR BONE SURVEY LTD 2022-03-23 18:11:00 Thierno Fatima [facility] XR BONE SURVEY LTD 2022-03-23 18:11:00 Thierno Fatima [facility] XR BONE SURVEY LTD 2022-03-23 18:11:00 Thierno Fatima [facility] POCT GLUCOSE (AUTOMATED) 2022-03-23 16:40:00 George Barrett [facility] POCT GLUCOSE (AUTOMATED) 2022-03-23 16:40:00 George Barrett [facility] POCT GLUCOSE (AUTOMATED) 2022-03-23 16:40:00 George Barrett [facility] POCT GLUCOSE (AUTOMATED) 2022-03-23 16:40:00 George Barrett [facility] POCT GLUCOSE (AUTOMATED) 2022-03-23 16:40:00 George Barrett [facility] POCT GLUCOSE (AUTOMATED) 2022-03-23 13:05:00 George Barrett [facility] POCT GLUCOSE (AUTOMATED) 2022-03-23 13:05:00 George Barrett [facility] POCT GLUCOSE (AUTOMATED) 2022-03-23 13:05:00 George Barrett [facility] POCT GLUCOSE (AUTOMATED) 2022-03-23 13:05:00 George Barrett [facility] POCT GLUCOSE (AUTOMATED) 2022-03-23 13:05:00 George Barrett [facility] C-REACTIVE PROTEIN 2022-03-23 05:37:00 Maximo Lucas [facility] CBC WITHOUT DIFF 2022-03-23 05:37:00 [facility] BASIC METABOLIC PANEL (NA, 2022-03-23 05:37:00 Shayy, [facility] K, CL, CO2, GLUCOSE, BUN, Medica l Branch CREATININE, CA) MAGNESIUM 2022-03-23 05:37:00 [place], [facility] MAGNESIUM 2022-03-23 05:37:00 [place], [facility] C-REACTIVE PROTEIN 2022-03-23 05:37:00 [place], [facility] BASIC METABOLIC PANEL (NA, 2022-03-23 05:37:00 [place], [facility] K, CL, CO2, GLUCOSE, BUN, Medica l Branch CREATININE, CA) CBC WITHOUT DIFF 2022-03-23 05:37:00 Shayy [facility] MAGNESIUM 2022-03-23 05:37:00 Shayy [facility] C-REACTIVE PROTEIN 2022-03-23 05:37:00 Shayy [facility] BASIC METABOLIC PANEL (NA, 2022-03-23 05:37:00 [place], [facility] K, CL, CO2, GLUCOSE, BUN, Medica l Branch CREATININE, CA) CBC WITHOUT DIFF 2022-03-23 05:37:00 Shayy [facility] MAGNESIUM 2022-03-23 05:37:00 Shayy [facility] C-REACTIVE PROTEIN 2022-03-23 05:37:00 Shayy [facility] BASIC METABOLIC PANEL (NA, 2022-03-23 05:37:00 [place], [facility] K, CL, CO2, GLUCOSE, BUN, Medica l Branch CREATININE, CA) CBC WITHOUT DIFF 2022-03-23 05:37:00 [place] [facility] MAGNESIUM 2022-03-23 05:37:00 [place], [facility] C-REACTIVE PROTEIN 2022-03-23 05:37:00 [place] [facility] BASIC METABOLIC PANEL (NA, 2022-03-23 05:37:00 Maximo Lucas [facility] K, CL, CO2, GLUCOSE, BUN, Medica l Branch CREATININE, CA) CBC WITHOUT DIFF 2022-03-23 05:37:00 Shayy [facility] SEDIMENTATION RATE 2022-03-23 04:17:00 Shayy [facility] SEDIMENTATION RATE 2022-03-23 04:17:00 Shayy [facility] SEDIMENTATION RATE 2022-03-23 04:17:00 Shayy [facility] SEDIMENTATION RATE 2022-03-23 04:17:00 Shayy [facility] SEDIMENTATION RATE 2022-03-23 04:17:00 Shayy [facility] VANCOMYCIN TROUGH 2022-03-23 02:24:00 [facility]22-03-23 02:24:00 [facility] 2022-03-23 02:24:00 [facility] 2022-03-23 02:24:00 [facility] 2022-03-23 02:24:00 [facility] PO[facility] GLUCOSE (AUTOMATED) 2022-03-23 01:20:00 George Barrett [facility] POCT GLUCOSE (AUTOMATED) 2022-03-23 01:20:00 George Barrett [facility] POCT GLUCOSE (AUTOMATED) 2022-03-23 01:20:00 George Barrett [facility] POCT GLUCOSE (AUTOMATED) 2022-03-23 01:20:00 George Barrett [facility] POCT GLUCOSE (AUTOMATED) 2022-03-23 01:20:00 George Barrett [facility] POCT GLUCOSE (AUTOMATED) 2022-03-22 23:39:00 George Barrett [facility] POCT GLUCOSE (AUTOMATED) 2022-03-22 23:39:00 George Barrett [facility] POCT GLUCOSE (AUTOMATED) 2022-03-22 23:39:00 George Barrett [facility] POCT GLUCOSE (AUTOMATED) 2022-03-22 23:39:00 George Barrett [facility] POCT GLUCOSE (AUTOMATED) 2022-03-22 23:39:00 George Barrett [facility] POCT GLUCOSE (AUTOMATED) 2022-03-22 16:52:00 Edaverywe [facility] POCT GLUCOSE (AUTOMATED) 2022-03-22 16:52:00 Edionwe [facility] POCT GLUCOSE (AUTOMATED) 2022-03-22 16:52:00 Edionwe, [facility] POCT GLUCOSE (AUTOMATED) 2022-03-22 16:52:00 Edionwe [facility] POCT GLUCOSE (AUTOMATED) 2022-03-22 16:52:00 Edionwe, [facility] POCT GLUCOSE (AUTOMATED) 2022-03-22 12:56:00 Edionwe, [facility] POCT GLUCOSE (AUTOMATED) 2022-03-22 12:56:00 Edionwe, [facility] POCT GLUCOSE (AUTOMATED) 2022-03-22 12:56:00 Edionwe, [facility] POCT GLUCOSE (AUTOMATED) 2022-03-22 12:56:00 Edionwe, [facility] POCT GLUCOSE (AUTOMATED) 2022-03-22 12:56:00 Edionwe, [facility] BASIC METABOLIC PANEL (NA, 2022-03-22 08:59:00 Gurvinder Boyer [facility] K, CL, CO2, GLUCOSE, BUN, Medica l Branch CREATININE, CA) CBC WITH DIFF 2022-03-22 08:59:00 Gurvinder Boyer [facility] BASIC METABOLIC PANEL (NA, 2022-03-22 08:59:00 [facility], CO2, GLUCOSE, BUN, Medica l Branch CREATININE, CA) CBC WITH DIFF 2022-03-22 08:59:00 Gurvinder Boyer [facility] BASIC METABOLIC PANEL (NA, 2022-03-22 08:59:00 [facility], CO2, GLUCOSE, BUN, Medica l Branch CREATININE, CA) CBC WITH DIFF 2022-03-22 08:59:00 [facility] (NA, 2022-03-22 08:59:00 Merlin [facility] K, CL, CO2, GLUCOSE, BUN, Medica l Branch CREATININE, CA) CBC WITH DIFF 2022-03-22 08:59:00 [facility]IC PAN[facility] (NA, 2022-03-22 08:59:00 [facility], CO2, GLUCOSE, BUN, Medica l Branch CREATININE, CA) CBC WITH DIFF 2022-03-22 08:59:00 [facility]SE (AUTOMATED) 2022-03-22 01:38:00 [facility] 2022-03-22 01:38:00 [facility]) 2022-03-22 01:38:00 [facility] ([facility]OMATED) 2022-03-22 01:38:00 Edionhima [facility] POCT GLUCOSE (AUTOMATED) 2022-03-22 01:38:00 Edlexi [facility] [place] POCT GLUCOSE (AUTOMATED) 2022-03-21 21:42:00 Edlexi, [facility] Uni versity [facility] POCT GLUCOSE (AUTOMATED) 2022-03-21 21:42:00 [facility]i [facility]) 2022-03-21 21:42:00 Thomas Barlowy [facility] [place] [facility] POCT GLUCOSE (AUTOMATED) 2022-03-21 21:42:00 Thomas Barlowy [facility] [place] [facility] POCT GLUCOSE (AUTOMATED) 2022-03-21 21:42:00 Thomas Barlowy [facility] [place] [facility] VANCOMYCIN RANDOM LEVEL 2022-03-21 16:48:00 Celso Duran [facility] [place] [facility] POCT GLUCOSE (AUTOMATED) 2022-03-21 16:48:00 Che Barlow [facility] [place] [facility] VANCOMYCIN RANDOM LEVEL 2022-03-21 16:48:00 Celso Duran [facility] [place] [facility] POCT GLUCOSE (AUTOMATED) 2022-03-21 16:48:00 Che Barlow [facility] [place] [facility] VANCOMYCIN RANDOM LEVEL 2022-03-21 16:48:00 Celso Duran [facility] [place] [facility] POCT GLUCOSE (AUTOMATED) 2022-03-21 16:48:00 Che Barlow [facility] [place] [facility] VANCOMYCIN RANDOM LEVEL 2022-03-21 16:48:00 Celso Duran [facility] [place] [facility] POCT GLUCOSE (AUTOMATED) 2022-03-21 16:48:00 Che Barlow [facility] [place] [facility] VANCOMYCIN RANDOM LEVEL 2022-03-21 16:48:00 Celso Duran [facility] [place] [facility] POCT GLUCOSE (AUTOMATED) 2022-03-21 16:48:00 Che Barlow [facility] [place] [facility] POCT GLUCOSE (AUTOMATED) 2022-03-21 13:28:00 Thomas Barlowy [facility] [place] [facility] POCT GLUCOSE (AUTOMATED) 2022-03-21 13:28:00 EdThomas elliotty [facility] [place] [facility] POCT GLUCOSE (AUTOMATED) 2022-03-21 13:28:00 Thomas Barlowy [facility] [place] [facility] POCT GLUCOSE (AUTOMATED) 2022-03-21 13:28:00 Thomas Barlowy [facility] [place] [facility] POCT GLUCOSE (AUTOMATED) 2022-03-21 13:28:00 Che Barlow Uni versity of [facility] LIPID PANEL (52000)(TOTAL 2022-03-21 09:11:00 [facility]LE[facility] TRIGLYCERIDES, HDL) LIPID PANEL (22166)(TOTAL 2022-03-21 09:11:00 [facility], [facility] TRIGLYCERIDES, HDL) LIPID PANEL (09520)(TOTAL 2022-03-21 09:11:00 Merlin [facility] CHOLESTEROL, Medical Branch TRIGLYCERIDES, HDL) LIPID PANEL (38068)(TOTAL 2022-03-21 09:11:00 eMrlin [facility] CHOLESTEROL, Medical Branch TRIGLYCERIDES, HDL) LIPID PANEL (40725)(TOTAL 2022-03-21 09:11:00 Merlin [facility] CHOLESTEROL, [facility] TRIGLYCERIDES, HDL) POCT GLUCOSE (AUTOMATED) 2022-03-21 01:35:00 Edlexi [facility] POCT GLUCOSE (AUTOMATED) 2022-03-21 01:35:00 Edionwe [facility] POCT GLUCOSE (AUTOMATED) 2022-03-21 01:35:00 Edionwe, [facility] POCT GLUCOSE (AUTOMATED) 2022-03-21 01:35:00 Edionwe, [facility] POCT GLUCOSE (AUTOMATED) 2022-03-21 01:35:00 Edionwe, [facility] POCT GLUCOSE (AUTOMATED) 2022-03-20 22:01:00 Edionwe, [facility] [place] [facility] POCT GLUCOSE (AUTOMATED) 2022-03-20 22:01:00 Edionwe, [facility] [place] [facility] POCT GLUCOSE (AUTOMATED) 2022-03-20 22:01:00 Edionwe, [facility] POCT GLUCOSE (AUTOMATED) 2022-03-20 22:01:00 Edionwe, [facility] POCT GLUCOSE (AUTOMATED) 2022-03-20 22:01:00 Edionwe, [facility] POCT GLUCOSE (AUTOMATED) 2022-03-20 16:38:00 Edionwe, [facility] Uni [facility] POCT GLUCOSE (AUTOMATED) 2022-03-20 16:38:00 [facility] (AUTOMATED) 2022-03-20 16:38:00 [facility] POCT GLUCOSE (AUTOMATED) 2022-03-20 16:38:00 [facility] POCT GLUCOSE (AUTOMATED) 2022-03-20 16:38:00 Che Barlow [facility] VANCOMYCIN TROUGH 2022-03-20 15:18:00 Roger [facility] VANCOMYCIN TROUGH 2022-03-20 15:18:00 Roger [facility] VANCOMYCIN TROUGH 2022-03-20 15:18:00 Roger [facility] VANCOMYCIN TROUGH 2022-03-20 15:18:00 Roger [facility] VANCOMYCIN TROUGH 2022-03-20 15:18:00 Roger [facility] DUPLEX ARTERIAL LEG LEFT - 2022-03-20 13:52:00 Denilson Corona [facility] [place] [facility] Branch DUPLEX ARTERIAL LEG LEFT - 2022-03-20 13:52:00 Denilson Corona [facility] [place] [facility] DUPLEX ARTERIAL LEG LEFT - 2022-03-20 13:52:00 Denilson Corona [facility] [place] [facility] Medical Branch DUPLEX ARTERIAL LEG LEFT - 2022-03-20 13:52:00 Denilson Corona [facility] [place] [facility] Medical Branch DUPLEX ARTERIAL LEG LEFT - 2022-03-20 13:52:00 Denilson Corona [facility] [place] [facility] URINALYSIS 2022-03-20 12:52:00 Marilu Villar Karena [facility] URINALYSIS 2022-03-20 12:52:00 Marilu Villar Karena [facility] URINALYSIS 2022-03-20 12:52:00 Marilu Villar Karena [facility] URINALYSIS 2022-03-20 12:52:00 [facility]ar [facility] URINALYSIS 2022-03-20 12:52:00 Marilu Villar [facility] POCT GLUCOSE (AUTOMATED) 2022-03-20 12:26:00 EdlexiChe [facility] POCT GLUCOSE (AUTOMATED) 2022-03-20 12:26:00 [facility]ima [facility] POCT GLUCOSE (AUTOMATED) 2022-03-20 12:26:00 Edionhima [facility] POCT GLUCOSE (AUTOMATED) 2022-03-20 12:26:00 Edionhima [facility] POCT GLUCOSE (AUTOMATED) 2022-03-20 12:26:00 Cain [facility] CBC WITH DIFF 2022-03-20 10:04:00 Cain [facility] BASIC METABOLIC PANEL (NA, 2022-03-20 10:04:00 Edionwe, [facility] [place] K, CL, CO2, GLUCOSE, BUN, Medica l Branch CREATININE, CA) N-TERMINAL PRO-BNP 2022-03-20 10:04:00 Nwokedi [facility] BASIC METABOLIC PANEL (NA, 2022-03-20 10:04:00 Edionwe, [facility] [place] K, CL, CO2, GLUCOSE, BUN, Medica l Branch CREATININE, CA) CBC WITH DIFF 2022-03-20 10:04:00 Edionhima [facility] N-TERMINAL PRO-BNP 2022-03-20 10:04:00 Nwokedi [facility] BASIC METABOLIC PANEL (NA, 2022-03-20 10:04:00 Edionwe, [employer] [facility] [place] K, CL, CO2, GLUCOSE, BUN, Medica l Branch CREATININE, CA) CBC WITH DIFF 2022-03-20 10:04:00 Edionhima [facility] N-TERMINAL PRO-BNP 2022-03-20 10:04:00 Nwokedi [facility] BASIC METABOLIC PANEL (NA, 2022-03-20 10:04:00 [facility], CO2, GLUCOSE, BUN, Medica l Branch CREATININE, CA) CBC WITH DIFF 2022-03-20 10:04:00 Cain [facility] N-TERMINAL PRO-BNP 2022-03-20 10:04:00 Nwerrol [facility] BASIC METABOLIC PANEL (NA, 2022-03-20 10:04:00 Edlexi, [facility], CL, CO2, GLUCOSE, BUN, Medica l Branch CREATININE, CA) CBC WITH DIFF 2022-03-20 10:04:00 Edlexi [facility] N-TERMINAL PRO-BNP 2022-03-20 10:04:00 Nwerrol [facility] POCT GLUCOSE (AUTOMATED) 2022-03-20 01:13:00 Thomas Barlowy [facility] [place] [facility] POCT GLUCOSE (AUTOMATED) 2022-03-20 01:13:00 Edlexi [facility] POCT GLUCOSE (AUTOMATED) 2022-03-20 01:13:00 EdThomas elliotty [facility] [place] [facility] POCT GLUCOSE (AUTOMATED) 2022-03-20 01:13:00 Edlexi [facility] [place] [facility] POCT GLUCOSE (AUTOMATED) 2022-03-20 01:13:00 EdThomas elliotty [facility] [place] [facility] POCT GLUCOSE (AUTOMATED) 2022-03-19 22:00:00 Edlexi [facility] [place] [facility] POCT GLUCOSE (AUTOMATED) 2022-03-19 22:00:00 Edaverywe [facility] [place] [facility] POCT GLUCOSE (AUTOMATED) 2022-03-19 22:00:00 Edlexi [facility] [place] [facility] POCT GLUCOSE (AUTOMATED) 2022-03-19 22:00:00 Edlexi, [facility] [place] [facility] POCT GLUCOSE (AUTOMATED) 2022-03-19 22:00:00 Edlexi [facility] [place] [facility] POCT GLUCOSE (AUTOMATED) 2022-03-19 16:42:00 CainChe versity of [facility] POCT GLUCOSE (AUTOMATED) 2022-03-19 16:42:00 Cain Che Uni versity of [facility] POCT GLUCOSE (AUTOMATED) 2022-03-19 16:42:00 Cain Che Philip versity of [facility] POCT GLUCOSE (AUTOMATED) 2022-03-19 16:42:00 Cain Che Philip versity of [facility] POCT GLUCOSE (AUTOMATED) 2022-03-19 16:42:00 Cain Thomasmargarette Tamera versity of [facility] BASIC METABOLIC PANEL (NA, 2022-03-19 15:22:00 [...] CA) POCT GLUCOSE (AUTOMATED) 2022-03-19 12:30:00 Cain Thomasmargarette Uni versity of [facility] POCT GLUCOSE (AUTOMATED) 2022-03-19 12:30:00 Cain Thomasmargarette Tamera versity of [facility] POCT GLUCOSE (AUTOMATED) 2022-03-19 12:30:00 Cain Che Uni versity of [facility] POCT GLUCOSE (AUTOMATED) 2022-03-19 12:30:00 Cain Thomasmargarette Tamera versity of [facility] POCT GLUCOSE (AUTOMATED) 2022-03-19 12:30:00 Che Barlow Uni versity of [facility] BASIC METABOLIC PANEL (NA, 2022-03-19 09:10:00 [place], [...] 2022-03-19 07:48:00 Marilu Villar Un iversity of [facility] POCT GLUCOSE(AGE >30DAYS) 2022-03-19 07:48:00 Marilu Vlilar [facility] [place] [facility] POCT GLUCOSE(AGE >30DAYS) 2022-03-19 07:48:00 Marilu Villar [facility] [place] [facility] POCT GLUCOSE(AGE >30DAYS) 2022-03-19 07:48:00 Marilu Villar [facility] [place] [facility] POCT GLUCOSE(AGE >30DAYS) 2022-03-19 07:48:00 Marilu Villar Un iversity of [facility] POCT GLUCOSE (AUTOMATED) 2022-03-19 07:42:00 Marilu Villar Uni versity of [facility] POCT GLUCOSE (AUTOMATED) 2022-03-19 07:42:00 Marilu Villar Uni versity of [facility] POCT GLUCOSE (AUTOMATED) 2022-03-19 07:42:00 Marilu Villar [facility] POCT GLUCOSE (AUTOMATED) 2022-03-19 07:42:00 Marilu Villar [facility] POCT GLUCOSE (AUTOMATED) 2022-03-19 07:42:00 Marilu Villar [facility] XR CHEST 1 2022-03-19 07:06:32 Marilu Villar [facility] XR CHEST 1 2022-03-19 07:06:32 Marilu Villar [facility] XR CHEST 1 2022-03-19 07:06:32 Marilu Villar [facility] XR CHEST 1 2022-03-19 07:06:32 Marilu Villar [facility] XR CHEST 1 2022-03-19 07:06:32 Marilu Villar [facility] XR TOES 2 VW LEFT 2022-03-19 06:40:00 Marilu Villar [facility] XR TOES 2 LEFT 2022-03-19 06:40:00 Marilu Villar [facility] XR TOES 2 LEFT 2022-03-19 06:40:00 Marilu Villar [facility] XR TOES 2 LEFT 2022-03-19 06:40:00 Marilu Villar Karena [facility] XR TOES 2 LEFT 2022-03-19 06:40:00 Marilu Villar [facility] HB ECG ROUTINE & RHYTHM 2022-03-19 06:35:34 Marilu Villar [facility] [place] HB ECG ROUTINE & RHYTHM 2022-03-19 06:35:34 Marilu Villar [facility] [place] HB ECG ROUTINE & RHYTHM 2022-03-19 06:35:34 Marilu Villar [facility] [place] HB ECG ROUTINE & RHYTHM 2022-03-19 06:35:34 Marilu Villar [facility] [place] HB ECG ROUTINE & RHYTHM 2022-03-19 06:35:34 Marilu Villar [facility] [place] AC PANEL 21 + LACTIC ACID 2022-03-19 06:20:00 [facility] AC PANEL 21 + LACTIC ACID 2022-03-19 06:20:00 [facility] AC PANEL 21 + LACTIC ACID 2022-03-19 06:20:00 [facility] AC PANEL 21 + LACTIC ACID 2022-03-19 06:20:00 [facility] AC PANEL 21 + LACTIC ACID 2022-03-19 06:20:00 [facility] 2022-03-19 06:16:00 Marilu Villar [facility] CBC WITH DIFF 2022-03-19 06:16:00 Marilu Villar [facility] COMP. METABOLIC PANEL 2022-03-19 06:16:00 Marilu Villar [facility] ([id number]) [facility] GLYCOSYLATED HEMOGLOBIN 2022-03-19 06:16:00 Ger [facility] BLOOD CULTURE SCREEN 2022-03-19 06:16:00 Marilu Villar [facility] COMP. METABOLIC PANEL 2022-03-19 06:16:00 Marilu Villar [facility] ([id number]) [facility] CBC WITH DIFF 2022-03-19 06:16:00 Marilu Villar [facility] GLYCOSYLATED HEMOGLOBIN 2022-03-19 06:16:00 Ger [facility] BLOOD CULTURE SCREEN 2022-03-19 06:16:00 Marilu Villar [facility] COMP. METABOLIC PANEL 2022-03-19 06:16:00 Marilu Villar [facility] ([id number]) [facility] CBC WITH DIFF 2022-03-19 06:16:00 Marilu Villar [facility] GLYCOSYLATED HEMOGLOBIN 2022-03-19 06:16:00 [facility] BLOOD CULTURE SCREEN 2022-03-19 06:16:00 Marilu Villar [facility] COMP. METABOLIC PANEL 2022-03-19 06:16:00 Marilu Villar [facility] ([id number]) [facility] CBC WITH DIFF 2022-03-19 06:16:00 Marilu Villar [place] [facility] GLYCOSYLATED HEMOGLOBIN 2022-03-19 06:16:00 Ger [facility] BLOOD CULTURE SCREEN 2022-03-19 06:16:00 Marilu Villar [facility] COMP. METABOLIC PANEL 2022-03-19 06:16:00 Marilu Villar [facility] ([id number]) [facility] CBC WITH DIFF 2022-03-19 06:16:00 Marilu Villar [facility] GLYCOSYLATED HEMOGLOBIN 2022-03-19 06:16:00 [facility] POCT GLUCOSE(AGE >30DAYS) 2022-03-19 06:15:00 [facility] PO[facility] GLU[facility]SE(AGE >30DAYS) 2022-03-19 06:15:00 Marilu Villar Un iversity [facility] POCT GLUCOSE(AGE >30DAYS) 2022-03-19 06:15:00 Marilu Villar Un iversity [facility] POCT GLUCOSE(AGE >30DAYS) 2022-03-19 06:15:00 Marilu Villar Un iversity [facility] POCT GLUCOSE(AGE >30DAYS) 2022-03-19 06:15:00 [facility] POCT GLUCOSE (AUTOMATED) 2022-03-19 06:13:00 Marilu Villar Uni versity [facility] POCT GLUCOSE (AUTOMATED) 2022-03-19 06:13:00 Marilu Villar versity [facility] POCT GLUCOSE (AUTOMATED) 2022-03-19 06:13:00 Marilu Villar Uni versity of [facility] POCT GLUCOSE (AUTOMATED) 2022-03-19 06:13:00 Marilu Villar versity of [facility] POCT GLUCOSE (AUTOMATED) 2022-03-19 06:13:00 Marilu Villar Uni versity [facility] CONSENT/REFUSAL FOR 2022-03-19 05:46:54 Doctor Unassigned, [facility] [place] [facility] CONSENT/REFUSAL FOR 2022-03-19 05:46:54 Doctor Unassigned, [facility] [place] [facility] CONSENT/REFUSAL FOR 2022-03-19 05:46:54 Doctor Unassigned, [facility] [place] [facility] CONSENT/REFUSAL FOR 2022-03-19 05:46:54 Doctor Unassigned, [facility] [place] [facility] CONSENT/REFUSAL FOR 2022-03-19 05:46:54 Doctor Unassigned, [facility] [place] [facility] HOSPITAL ADMISSION 2022-03-19 05:01:00 Doctor Unassigned, [facility] HOSPITAL ADMISSION 2022-03-19 05:01:00 Doctor Unassigned, [facility] HOSPITAL ADMISSION 2022-03-19 05:01:00 Doctor Unassigned, [facility] HOSPITAL ADMISSION 2022-03-19 05:01:00 Doctor Unassigned, [facility] HOSPITAL ADMISSION 2022-03-19 05:01:00 Doctor Juan Manuel, [facility] HEMOGLOBIN A1C TEST 2022-01-12 21:05:00 [facility] HEMOGLOBIN A1C TEST 2022-01-12 21:05:00 [facility] Plan of Care Planned Activity Planned Date Details Comments Source Future Scheduled 2022 [facility] for [facility] [place] Test 00:00:00 malignant neoplasm of Medica l Branch colon (procedure) [code = 598151657] Future Scheduled 2022 Screening for [facility] [place] Test 00:00:00 malignant neoplasm of [facility]ica [facility] colon (procedure) [code = 401543087] Future Scheduled 2021-09-07 Creatinine [facility] [place] Test 00:00:00 measurement Medical Branch (procedure) [code = 96732057] Future Scheduled 2021-09-07 Creatinine [facility] [place] Test 00:00:00 measurement Medical Branch (procedure) [code = 59232525] Future Scheduled 2021-09-05 Calculated low [facility] [place] Test 00:00:00 density lipoprotein Medical Branch cholesterol level (procedure) [code = 902255478] Future Scheduled 2021-09-05 Calculated low [facility] [place] Test 00:00:00 density lipoprotein Medical Branch cholesterol level (procedure) [code = 084192487] Future Scheduled 2021-05-08 Depression screening [facility] [place] Test 00:00:00 (procedure) [code = Medical Branch 774732147] Future Scheduled 2021-05-08 Depression screening [facility] [place] Test 00:00:00 (procedure) [code = Medical Branch 593889806] Future Scheduled 2021-03-07 Hemoglobin A1c [facility] [place] Test 00:00:00 measurement Medical [facility] (procedure) [code = 42047893] Future Scheduled 2021-03-07 Hemoglobin A1c [facility] [place] Test 00:00:00 measurement Medical [facility] (procedure) [code = 15805260] Future Scheduled 2021-01-27 INFLUENZA VACCINE [facility] [place] Test 00:00:00 (Season Ended) [code Medical Branch = INFLUENZA VACCINE (Season Ended)] Future Scheduled 2021-01-27 INFLUENZA VACCINE [facility] [place] Test 00:00:00 (Season Ended) [code Medical Branch = INFLUENZA VACCINE (Season Ended)] Future Scheduled 2020-10-31 Screening for [facility] [place] Test 00:00:00 malignant neoplasm of Medica [facility] breast (procedure) [code = 712665915] Future Scheduled 2020-10-31 Screening for [facility] [place] Test 00:00:00 malignant neoplasm of Medica [facility] breast (procedure) [code = 536708271] Future Scheduled 2020-09-25 Screening for [facility] [place] Test 00:00:00 malignant neoplasm of Medica [facility] Branch cervix (procedure) [code = 767560538] Future Scheduled 2020-09-25 Screening for [facility] Test 00:00:00 malignant neoplasm of Medica l Branch cervix (procedure) [code = 926945839] Future Scheduled 2020-05-10 Diabetic foot [facility] Test 00:00:00 examination Medical Branch (regime/therapy) [code = 612634157] Future Scheduled 2020-05-10 Diabetic foot [facility] Test 00:00:00 examination Medical Branch (regime/therapy) [code = 556249403] Future Scheduled 2019-09-01 Microalbumin [facility] Test 00:00:00 measurement, urine, Medical Branch quantitative (procedure) [code = 608067722] Future Scheduled 2019-09-01 Microalbumin [facility] Test 00:00:00 measurement, urine, Medical Branch quantitative (procedure) [code = 453897131] Future Scheduled 1991 DTaP,Tdap,and Td [facility] [place] Test 00:00:00 Vaccines (1 - Tdap) Medical Branch [code = DTaP,Tdap,and Td Vaccines (1 - Tdap)] Future Scheduled 1991 DTaP,Tdap,and Td [facility] [place] Test 00:00:00 Vaccines (1 - Tdap) Medical Branch [code = DTaP,Tdap,and Td Vaccines (1 - Tdap)] Future Scheduled 1990 Hepatitis C screening [facility] [place] Test 00:00:00 (procedure) [code = Medical Branch 476998192] Future Scheduled 1990 Hepatitis C screening [facility] [place] Test 00:00:00 (procedure) [code = Medical Branch 576834193] Future Scheduled 1988 SARS-CoV-2 (COVID-19) [facility] [place] Test 00:00:00 Vaccine (1) [code = Medical Branch SARS-CoV-2 (COVID-19) Vaccine (1)] Future Scheduled 1988 SARS-CoV-2 (COVID-19) [facility] [place] Test 00:00:00 Vaccine (1) [code = Medical Branch SARS-CoV-2 (COVID-19) Vaccine (1)] Future Scheduled 1982 Examination of retina [facility] [place] Test 00:00:00 (procedure) [code = Medical Branch 218459697] Future Scheduled 1982 Examination of retina [facility] [place] Test 00:00:00 (procedure) [code = Medical Branch 344521854] Future Scheduled 1978 PNEUMOCOCCAL 0-64 Univer sity [...] Type Clinicians Facility Department ID 2021-03-29 Emergency [facility] [id number] Univers 23:28:09 ity of [facility] 2021-03-28 Emergency X [facility] [id number] Univers 11:58:59 ity of [facility] 2021-03-28 Emergency [facility] [id number] Univers 11:58:17 ity of [facility] 2021-03-26 Emergency [facility] [id number] Univers 12:39:58 ity [facility] 2022-04-15 2022-04-15 Outpatient R MARK [facility] [id number] Univers 16:00:00 16:56:56 ANATOLY ity [facility] 2022-04-14 2022-04-14 Outpatient R MAGNUS [facility] [id number] Univers 11:30:00 11:42:13 YULIANA ity [facility] 2022-04-14 2022-04-14 Office VICKIE Carrasco [id number] Univers 11:30:00 11:42:13 Visit Yuliana R Y HEALTH [id number] ity [id number] [id number] [address] Branch 2022-04-06 2022-04-06 Transition MATTHEW Gonzalez [id number] Univers 00:00:00 00:00:00 of Care Garcia PETERSONY [id number] ity of [facility] [id number] [id number] [facility] 403 Branch 2022-03-19 2022-04-05 Inpatient U JERRI [facility] JOSUE [id number] Univers 00:57:00 15:32:00 RACHELLE ity of [facility] 2022-03-19 2022-04-05 [facility] Marilu Villar [id number] Univers 00:57:00 15:32:00 Encounter ObinnaaveryhimaThomasmargarette PARRA [id number] ity of [place] [facility] [id number] 6 [place] Rachelle Guthrie [id number] Medical Natalie Alden M [address] [facility] 2022-04-04 2022-04-04 Telephone VICKIE Scott [id number] Univers 00:00:00 00:00:00 [facility] [id number] ity of [facility] [id number] [id number] [facility] 205 Branch 2022-03-29 2022-03-29 Surgery DIANA Scott [id number] Univers 09:34:00 12:24:00 Ryanne NASSARY 350.1.13.10 ity of [place] [facility] 4.2.7.2.686 Raffy as [phone] [facility] [address] 2022-03-28 2022-03-28 Surgery DIANA Woodward 1.2.840.114 [id number] Univers 11:35:00 13:35:00 Darrelobinna PARRA 350.1.13.10 it y of [facility] 4.2.7.2.686 Raffy as [phone] [facility] [address] 2022-03-27 2022-03-27 Anesthesia Carine, 1.2.840.5 [id number] Univers 07:57:13 07:57:13 Event Thong 21835.1.1 ity of 3.104.2.7 [place] .3.843208 Medica l .8 Branch 2022-03-25 2022-03-25 Surgery DIANA Scott 1.2.840.114 [id number] Univers 07:00:00 11:02:00 Ryanne PARRA 350.1.13.10 ity of [place] [facility] 4.2.7.2.686 Raffy as [phone] [facility] [address] 2022-03-25 2022-03-25 Anesthesia Jeff Gupta 1.2.840.1 10 [id number] Univers 07:52:00 09:21:00 Event Luis Benitez 10682.1.1 ity of 3.104.2.7 [place] .3.219042 Medica l .8 Branch 2022-03-22 2022-03-22 Travel 1.2.840.1 1.2.125.640 [id number] Univers 00:00:00 00:00:00 41671.1.1 350.1.13.10 ity of 3.104.2.7 4.[place].3.698 [place] .3.730918 084.8 Medica l .8 Branch 2022-03-19 2022-03-19 Travel 1.2.840.1 1.2.650.683 0114 7584 Univers 00:00:00 00:00:00 59926.1.1 350.1.13.10 ity of 3.104.2.7 4.[place].3.698 [place] .3.787940 084.8 Medica l .8 Branch 2022-03-15 2022-03-15 Outpatient R VANCE, [facility] [id number] Univers 16:00:00 16:00:00 WENTONG ity of [facility] 2022-03-14 2022-03-14 Telephone Radha Flores.2.840.8 [id number] Univers 00:00:00 00:00:00 Anatoly Michael 86103.1.1 ity of 3.104.2.7 [place] .3.122975 Medica l .8 Branch 2022-03-012022-03-01 Refleticia Flores, 1.2.840.9 [id number] Univers 00:00:00 00:00:00 Anatoly Rodriguez 51036.1.1 ity of 3.104.2.7 [place] .3.483002 Medica l .[address] [place] 2022-01-31 2022-01-31 Refleticia Costa, 1.2.840.3 [id number] [id number] Univers 00:00:00 00:00:00 Wondiful A 04730.1.1 i ty of 3.104.2.7 [place] .3.549421 Medica l .8 [place] 2022-01-31 2022-01-31 Telephone Minh, 1.2.840.3 [id number] [id number] Univers 00:00:00 00:00:00 Madi 54217.1.1 ity of 3.104.2.7 [place] .3.346697 Medica l .8 [place] 2022-01-21 2022-01-21 Outpatient R MARK [facility] [id number] Univers 12:00:00 12:00:00 [facility] 2022-01-21 2022-01-[address] [id number] Univers 12:00:00 12:00:00 [facility] 2022-01-21 2022-01-[address] [id number] Univers 12:00:00 12:00:00 [facility] 2022-01-21 2022-01-[address] [facility] [id number] Univers 12:00:00 12:00:00 [facility] 2022-01-15 2022-01-15 Patient Doctor 1.2.840.7 [id number] Univers 00:00:00 00:00:00 Secure Msg Unassigned, 13345.1.1 ity of [place] 3.104.2.7 [place] .3.011662 Medica l .8 [place] 2022-01-12 2022-01-12 Outpatient R NEO KNUTSON [facility] [id number] Univers 16:00:00 16:41:18 NEO KNUTSON ity of [facility] 2022-01-12 2022-01-12 Office Neo Knutson 1.2.840.4 [id number] [id number] Univers 16:00:00 16:41:18 Visit 51487.1.1 ity of 3.104.2.7 [place] .3.766682 Medica l .8 [place] 2022-01-12 2022-01-12 Outpatient R NEO KNUTSON [facility] [id number] Univers 15:30:00 15:30:00 NEO KNUTSON ity of [facility] 2022-01-12 2022-01-12 Travel 1.2.840.1 1.2.308.021 [id number] 7466 Univers 00:00:00 00:00:00 92342.1.1 350.1.13.10 ity of 3.104.2.7 4.[place].7.3.698 [place] .3.854923 084.8 Medica l .8 [place] 2021-11-22 2021-11-22 [facility] [id number] Univers 16:27:00 18:56:00 FABBY turner of [facility] 2021-11-22 2021-11-22 Emergency [facility] 1.2.840.114 [id number] Univers 16:27:00 18:56:00 Fabby CHAN 350.1.13.10 ity of [place] 4.2.7.2.686 [place] [facility] [phone] [facility] [address] [place] 2021-11-22 2021-11-22 Emergency X [facility] ERT [id number] Univers 16:19:00 16:19:00 ity of [facility] 2021-11-22 2021-11-22 Office [facility] 1.2.840.114 [id number] Univers 14:30:00 16:04:36 Visit [facility] 350.1.13.10 it y of [place] 4.2.7.2.686 Raffy as CHARLY?BLEA [phone] [address] MEDICAL OFFICE BUILDING 2021-11-22 2021-11-22 Outpatient R MINH [facility] [id number] Univers 14:30:00 16:04:36 MADI turner [facility] 2021-11-22 2021-11-22 Outpatient R MINH [facility] [id number] Univers 14:30:00 14:30:00 MADI jiamargarette [facility] 2021-11-22 2021-11-22 Orders Doctor VAISHALI 1.2.840.114 [id number] Univers 00:00:00 00:00:00 Only Unassigned, AIDA 350.1.13.10 ity of [place] [facility] 4.2.7.2.686 Raffy as [phone] [address] 2021-11-10 2021-11-10 Outpatient R NEO KNUTSON [facility] [id number] Univers 10:00:00 10:00:00 NEO KNUTSON [facility] 2021-11-10 2021-11-10 Outpatient R EAMON [facility] [id number] Univers 10:00:00 10:00:00 NEO KNUTSON [facility] 2021-11-10 2021-11-10 Telephone Eamon [facility] 1.2.732.079 [id number] Univers 00:00:00 00:00:00 HEALTH 350.1.13.10 it y of [facility] 4.2.7.2.686 Raffy as CHARLY?BLEA [phone] Il sonu [facility] [address] MEDICAL OFFICE [facility] 2021-11-08 2021-11-08 Orders Doctor VAISHALI 1.2.840.114 [id number] Univers 00:00:00 00:00:00 Only Unassigned, AIDA 350.1.13.10 ity of [place] [facility] 4.2.7.2.686 Raffy as [phone] [address] 2021-11-05 2021-11-[address] [facility] [id number] Univers 15:30:00 15:30:00 MADI ity [facility] 2021-11-05 2021-11-05 Telephone [facility] 1.2.293.045 [id number] Univers 00:00:00 00:00:00 Adeola HEALTH 350.1.13.10 it y of [place] 4.2.7.2.686 Raffy as CHARLY?BLEA [phone] [facility] [address] MEDICAL OFFICE [facility] 2021-10-20 2021-10-20 Telephone [facility] 1.2.618.153 [id number] Univers 00:00:00 00:00:00 Adeola HEALTH 350.1.13.10 it y of [place] 4.2.7.2.686 Raffy as CHARLY?BLEA [phone] [facility] [address] MEDICAL OFFICE [facility] 2021-10-20 2021-10-20 Orders Doctor VAISHALI 1.2.840.114 [id number] Univers 00:00:00 00:00:00 Only Unassigned, AIDA 350.1.13.10 ity of [place] [facility] 4.2.7.2.686 Raffy as [phone] [address] 2021-10-15 2021-10-15 [employer], Ang - [facility] 1.2.840.1 14 [id number] Univers 09:45:00 10:00:00 Visit Adeola Cuenca [facility] 350.1.13.10 ity of [place] 4.2.7.2.686 Raffy as CHARLY?BLEA [phone] [facility] [address] MEDICAL OFFICE [facility] 2021-10-15 2021-10-[address] [facility] [id number] Univers 09:45:00 09:45:00 ADEOLA ity of [facility] 2021-10-15 2021-10-15 Office [facility] 1.2.840.114 [id number] Univers 09:00:00 09:37:13 [facility] 350.1.13.10 it y of [place] 4.2.7.2.686 Raffy as CHARLY?BLEA [phone] [address] MEDICAL OFFICE [facility] 2021-10-15 2021-10-[address] [facility] [id number] Univers 09:00:00 09:37:13 ADEOLA ity of [facility] 2021-10-15 2021-10-15 Outpatient R BANG [facility] [id number] Univers 09:00:00 09:00:00 ADEOLA turner [facility] 2021-08-27 2021-08-27 Outpatient R MARK [facility] [id number] Univers 16:00:00 17:02:36 ANATOLY turner [facility] 2021-08-27 2021-08-27 [facility] 1.2.338.597 [id number] Univers 16:00:00 17:02:36 Visit Anatoly HEALTH 350.1.13.10 it y of [facility] 4.2.7.2.686 Raffy as CHARLY?BLEA [phone] Il sonu BURNS 220 [facility] OFFICE [facility] 2021-08-27 2021-08-[address] [facility] [id number] Univers 16:00:00 16:00:00 ANATOLY turner [facility] 2021-08-09 2021-08-09 Orders Doctor TOM 1.2.840.114 [id number] Univers 00:00:00 00:00:00 Only Unassigned, AIDA 350.1.13.10 ity of [place] [facility] 4.2.7.2.686 Raffy as [phone] [address] 2021-07-19 2021-07-19 Orders Doctor TOM 1.2.840.114 [id number] Univers 00:00:00 00:00:00 Only Unassigned, AIDA 350.1.13.10 ity of [place] [facility] 4.2.7.2.686 Raffy as [phone] [address] 2021-07-05 2021-07-05 Latricia Costa [facility] 1.2.840.114 [id number] Univers 00:00:00 00:00:00 Wondiful A HEALTH 350.1.13.10 ity of [place] 4.2.7.2.686 Raffy as CHARLY?BLEA [phone] Il sonu SENA 044 [facility] OFFICE [facility] 2021-06-21 2021-06-[address] [facility] [id number] Univers 16:00:00 16:54:48 WONDIFUL ity o f [facility] 2021-06-21 2021-06-21 Office [facility] 1.2.840.114 [id number] Univers 16:00:00 16:54:48 Visit Wondiful A HEALTH 350.1.13.10 ity of [facility] 4.2.7.2.686 Raffy as CHARLY?BLEA [phone] [facility] JAIDA [address] MEDICAL OFFICE BUILDING 2021-05-15 2021-05-15 Refill [facility] 1.2.840.114 [id number] Univers 00:00:00 00:00:00 Wondiful A HEALTH 350.1.13.10 ity of [facility] 4.2.7.2.686 Raffy as PROFESSIO [phone] [facility] [address] OFFICE BUILDING ONE 2021-05-13 2021-05-13 Orders Doctor VAISHALI 1.2.840.114 [id number] Univers 00:00:00 00:00:00 Only Unassigned, AIDA 350.1.13.10 ity of [place] [facility] 4.2.7.2.686 Raffy as [phone] [facility] [address] [place] 2021-02-12 2021-02-12 Emergency [facility] 1.2.840.114 [id number] Univers 14:34:00 17:16:00 Fabby Chan 350.1.13.10 ity of [place].2.[place] [phone] [facility] [address] [place] 2021-02-12 2021-02-12 Office [facility] 1.2.840.114 [id number] Univers 13:04:40 15:13:23 Visit Adeola Health 350.1.13.10 it y of [place] 4.2.7.2.686 Raffy as Charly?Blea [phone] [facility] jaime [address] Medical Office Building 2021-02-12 2021-02-[address] [facility] [id number] Univers 13:00:00 13:00:00 ADEOLA ity of [facility] 2021-01-19 2021-01-19 Transition Matthew Daniel 1.2.840.114 [id number] Univers 00:00:00 00:00:00 of Care Phyllis Petersony 350.1.13.10 it y of [place]2.7.2.[place] [phone] [facility] [address] 2021-01-19 2021-01-19 Transition Matthew Daniel 1.2.840.114 [id number] Univers 00:00:00 00:00:00 of Care Phyllis Petersony 350.1.13.10 it y of [place]2.7.2.[place] [phone] [facility] [address] 2021-01-15 2021-01-17 [facility] 1.2.840.114 [id number] Univers 15:17:00 13:06:00 Encounter Celso Chan 350.1.13.10 ity of [place] 4[place]2.7.2.[place] [phone] [facility] [address] [place] 2021-01-15 2021-01-15 Office [facility] 1.2.840.114 [id number] Univers 14:09:25 15:11:21 Visit Lily Chan 350.1.13.10 ity of [place] 4[place]2.7.2.686 [place] Profess[place] [phone] Il dical nal 059 [facility] 2021-01-15 2021-01-15 Outpatient R GREGORY [facility] [id number] Univers 14:40:00 14:40:00 LILY turner o f [facility] 2021-01-01 2021-01-01 Office [facility] 1.2.881.988 [id number] Univers 11:28:43 12:58:14 Visit Anatoly Chan 350.1.13.10 i ty of [place]2.7.2.[place] Profess[place] [phone] Il dical nal 220 [facility] 2021-01-01 2021-01-01 Office [facility] 1.2.486.834 [id number] 7417 Univers 11:28:43 12:58:14 Visit Anatoly Chan 350.1.13.10 i ty of [place] 4[place]2.7.2.[place] Profess[place] [phone] Il dical nal [address] Building 2021-01-01 2021-01-[address] [facility] [id number] Univers 11:30:00 11:30:00 ANATOLY itmargarette [facility] 2020-12-18 2020-12-18 Refleticia [facility] 1.2.840.114 [id number] Univers 00:00:00 00:00:00 Wondiful A Health 350.1.13.10 ity of [place] 4.2.7.2.686 Raffy as Professio [phone] [facility] [address] [place] Office Building One 2020-12-02 2020-12-[address] [facility] [id number] Univers 16:00:00 16:00:00 LILY itmargarette o f [facility] 2020-11-30 2020-12-01 [facility] Lily Jenkins 1.2.840.114 [id number] Univers 17:33:00 15:15:00 Encounter MarquiseRay 350.1.1 3.10 ity [facility] 4.2.7.2 .686 [facility] Jamalpaula Ayersdh [phone] 2428[address] [place] 2020-12-01 2020-12-[address] [facility] [id number] Univers 14:00:00 14:00:00 WONDIFUL ity o f [facility] 2020-11-30 2020-11-30 Outpatient R [facility] [id number] Univers 08:00:00 08:00:00 ity of [facility] 2020-11-30 2020-11-30 [facility] Diana [place] 1.2.840.114 [id number] Univers 07:45:00 07:59:00 Encounter Darrel A [place] 350.1.13.10 ity of [facility] 4.2.7.2.686 Raffy as [phone] [place] [address] [address] 2020-11-27 2020-11-27 Outpatient R MARK [facility] [id number] Univers 14:00:00 14:00:00 ANATOLY turner of [facility] 2020-11-25 2020-11-25 Telephone Diana Jenkins 1.2.834.048 [id number] Univers 00:00:00 00:00:00 Qiagerry Parra 350.1.13.10 i ty of Hospital 4.2.7.2.686 Raff[place] as [phone] [address] 2020-11-25 2020-11-25 Telephone Gianfranco [facility] 1.2.418.406 [id number] Univers 00:00:00 00:00:00 Patient [place] 350.1.13.10 i ty of [place] 4.2.7.2.686 Raffy as Have A Professio [phone] Il dical nal 843 [facility] 2020-11-16 2020-11-16 Telephone Diana Jenkins 1.2.391.494 [id number] Univers 00:00:00 00:00:00 Lily Parra 350.1.13.10 i ty of [facility] 4.2.7.2.686 Raffy as [phone] [address] 2020-11-13 2020-11-13 Office [facility] 1.2.840.114 [id number] Univers 14:46:41 15:21:27 Visit Lily Chan 350.1.13.10 ity of [place] 4[place]2.7.2.[place] [phone] Il dical nal 059 [facility] 2020-11-13 2020-11-13 Outpatient R GREGORY [facility] [id number] Univers 14:00:00 14:00:00 LILY turner o f [facility] 2020-11-12 2020-11-12 Telephone [facility] 1.2.840.114 [id number] Univers 00:00:00 00:00:00 Wondiful A Health 350.1.13.10 ity of [place] 4.2.7.2.686 Raffy as Professio [phone] Il dic[address] 2020-10-28 2020-10-28 Pre Visit Igor INMINDY 1.2.840.114 [id number] Univers 00:00:00 00:00:00 Outreach Wondiful A Health 350.1.13.10 ity of [place] 4.2.7.2.686 [place]affy as Professio [phone] [address] 2020-10-07 2020-10-07 Office Vance [facility] 1.2.840.114 [id number] Univers 13:57:34 15:30:50 Visit Wentong [place] 350.1.13.10 i ty of [place] 4[place]2.7.2.686 [place] Profess[place] [phone] [address] 2020-10-07 2020-10-07 Outpatient R VANCE [facility] [id number] Univers 14:00:00 14:00:00 [facility] 2020-10-06 2020-10-06 Outpatient R VANCE [facility] [id number] Univers 14:30:00 14:30:00 [facility] 2020-10-01 2020-10-01 Office Igor [facility] 1.2.840.114 [id number] Univers 15:08:27 16:09:31 Visit Wondiful A Health 350.1.13.10 ity of [place] 4.2.7.2.686 Raffy as Professio [phone] [address] 2020-10-01 2020-10-01 Office Igor INMINDY 1.2.840.114 [id number] 15:08:27 16:09:31 Visit Wondiful A Health 350.1.13.10 [place] 4.2.7.2.686 Professio [phone] [address] 2020-10-01 2020-10-01 Outpatient R IGOR [facility] [id number] Univers 15:00:00 15:00:00 WONDIFUL ity o f [facility] 2020-09-26 2020-09-26 Refill Igor [facility] 1.2.840.114 [id number] Univers 00:00:00 00:00:00 Wondiful A Health 350.1.13.10 ity of [place] 4.2.7.2.686 Raffy as Professio [phone] Il dicwv nal 044 [facility] One 2020-09-24 2020-09-24 [facility] 1.2.840.114 [id number] Univers 00:00:00 00:00:00 Wondiful A Health 350.1.13.10 ity of [place] 4.2.7.2.686 Raffy as Professio [phone] Il dicwv nal [address] [place] [address] One 2020-09-11 2020-09-11 [facility] 1.2.840.114 [id number] Univers 00:00:00 00:00:00 Wondiful A Health 350.1.13.10 ity of [place] 4.2.7.2.686 Raffy as Professio [phone] [facility] nal [address] [place] [address] One 2020-09-09 2020-09-09 Transition Matthew Gonzalez 1.2.840.114 [id number] Univers 00:00:00 00:00:00 of Care Garcia Bennie Petersony 350.1.13.10 ity of [place] 4[place]2.7.2.[place] [phone] [address] 2020-09-04 2020-09-07 [facility] Ronnie Murry [facility] 1.2.8 40.114 [id number] Univers 20:58:00 18:15:00 Encounter Melly Giraldo 350.1.13.1 0 ity of [place] 4.2.7.2.686 [facility] [phone] [address] 2020-09-04 2020-09-04 Office Mark [facility] 1.2.541.736 [id number] Univers 16:01:54 17:11:05 Visit Anatoly Chan 350.1.13.10 i ty of [place] 4.2.7.2.686 [place] [phone] Il dical nal 220 [facility] 2020-09-04 2020-09-04 Outpatient R MARK [facility] [id number] Univers 16:00:00 16:00:00 ANATOLY yue [facility] 2020-09-04 2020-09-04 Outpatient R MARK [facility] [id number] Univers 16:00:00 16:00:00 ANATOLY turner [facility] 2020-09-04 2020-09-04 Orders Doctor VAISHALI 1.2.840.114 [id number] Univers 00:00:00 00:00:00 Only Unassigned, AIDA 350.1.13.10 ity of [place] [facility] 4.2.7.2.686 Raffy as [phone] [address] 2020-08-13 2020-08-13 Patient [facility] 1.2.840.114 [id number] Univers 00:00:00 00:00:00 [facility] 350.1.13.10 i ty of [facility] 4.2.7.2.[place] [phone] Il dical [address] 2020-08-04 2020-08-04 Refleticia [facility] 1.2.630.933 [id number] 7343 Univers 00:00:00 00:00:00 Anatoly Chan 350.1.13.10 i ty of [place]2.7.2.[place] [phone] Il dical [facility] 220 [facility] 2020-08-04 2020-08-04 Refleticia [facility] 1.2.840.114 [id number] Univers 00:00:00 00:00:00 Wondiful A Health 350.1.13.10 ity of [place] 4.2.7.2.686 Raffy as Professio [phone] Il dical nal [address] [place] Office Building One 2020-08-03 2020-08-03 Orders Doctor TOM 1.2.840.114 [id number] Univers 00:00:00 00:00:00 Only Unassigned, AIDA 350.1.13.10 ity of [place] [facility] 4.2.7.2.686 Raffy as [phone] [address] 2020-07-16 2020-07-16 Outpatient Sonya COSTA [facility] [id number] Univers 11:15:00 11:15:00 WONDIFUL ity o f [facility] 2020-06-22 2020-06-22 [facility] 1.2.840.114 [id number] Univers 00:00:00 00:00:00 Wondiful A Health 350.1.13.10 ity of [place] 4.2.7.2.686 Raffy as Professio [phone] [address] Office [facility] One 2020-06-08 2020-06-08 [facility] 1.2.840.114 [id number] Univers 00:00:00 00:00:00 Wondiful A Health 350.1.13.10 ity of [place] 4.2.7.2.686 Raffy as Professio [phone] [address] One 2020-06-05 2020-06-05 [facility] 1.2.840.114 [id number] Univers 00:00:00 00:00:00 Wondiful A Health 350.1.13.10 ity of [place] 4.2.7.2.686 Raffy as Professio [phone] [address] One 2020-05-28 2020-05-28 Outpatient Sonya COSTA [facility] [id number] Univers 15:00:00 15:00:00 WONDIFUL ity o f [facility] 2020-05-19 2020-05-19 [facility] 1.2.840.114 [id number] Univers 00:00:00 00:00:00 Wondiful A Health 350.1.13.10 ity of [place] 4.2.7.2.686 Raffy as Professio [phone] [address] One 2020-05-14 2020-05-14 [facility] 1.2.840.114 [id number] Univers 00:00:00 00:00:00 Wondiful A Health 350.1.13.10 ity of [place] 4.2.7.2.686 Raffy as Professio [phone] [address] Office [facility] 2020-05-13 2020-05-13 Case [facility] 1.2.840.114 [id number] Univers 00:00:00 00:00:00 Management Wondiful A Health 350.1.13.10 ity of [place] 4.2.7.2.686 [place]affy as Professio [phone] [address] Office Building [facility] 2020-05-08 2020-05-08 Hospital [facility] [id number] Univers 14:47:36 23:59:00 Encounter Wondiful A [place] 350.1.13.10 ity [place] [phone] [facility] [address] 2020-05-08 2020-05-08 Outpatient R MARK [facility] [id number] Univers 16:30:00 16:30:00 ANATOLY ity of [facility] 2020-05-08 2020-05-08 Office [facility] 1.2.840.114 [id number] Univers 13:10:21 13:58:56 Visit Wondiful A Health 350.1.13.10 ity of [place] 4.2.7.2.686 Raffy as Professio [phone] [address] Office [facility] 2020-05-08 2020-05-08 Orders Doctor VAISHALI 1.2.840.114 [id number] Univers 00:00:00 00:00:00 Only Unassigned, AIDA 350.1.13.10 ity of [facility] 4.2.7.2.686 Raffy as [phone] [facility] [address] 2020-05-01 2020-05-[address] [facility] [id number] Univers 10:30:00 10:30:00 WONDIFUL ity o f [facility] 2020-04-17 2020-04-17 Tele[facility]ici [facility] 1.2.840.114 [id number] Univers 11:00:00 11:30:00 ne Visit Sisi Kylah LewisSanta [place] 350.1.13.10 [place] [phone] [place] dical nal 134 [facility] 2020-04-17 2020-04-17 Outpatient R AD, [facility] [id number] Univers 11:00:00 11:00:00 SISI ity of [facility] 2020-04-14 2020-04-14 Refleticia [facility] 1.2.840.114 [id number] Univers 00:00:00 00:00:00 Wondiful A Health 350.1.13.10 [place]y of [place] 4.2.7.2.686 Raffy as Professio [phone] Il dical nal [address] Office [facility] 2020-04-13 2020-04-13 [facility] [id number] Univers 00:00:00 00:00:00 Anatoly Chan 350.1.13.10 i ty [place] [phone] Il dical nal 220 [facility] 2020-04-08 2020-04-08 [facility] [id number] Univers 00:00:00 00:00:00 Sisi [place] 350.1.13.10 [place] [phone] Il dical nal 134 [facility] 2020-04-07 2020-04-07 [facility] 1.2.840.114 [id number] Univers 00:00:00 00:00:00 Management Sisi [place] 350.1.13.10 [place] 4[place]7.2.[place] [phone] Il dical nal 134 [facility] 2020-04-03 2020-04-03 [facility] 1.2.840.114 [id number] Univers 13:15:01 14:30:02 Visit Sisi Chan 350.1.13.10 [place] 4[place] [phone] [address] 2020-04-03 2020-04-03 Outpatient R ADUM, [facility] [id number] Univers 13:30:00 13:30:00 SISI turner [facility] 2020-04-03 2020-04-03 Outpatient R AD, [facility] [id number] Univers 10:30:00 10:30:00 SISIPOPPY turner [facility] 2020-04-01 2020-04-01 Telephone Garsia Serena [facility] 1..840.114 [id number] Univers 00:00:00 00:00:00 Cam [place] 350.1.13.10 [place] [phone] [address] 2020-03-20 2020-03-20 [facility] 1..840.114 [id number] Univers 00:00:00 00:00:00 Wondiful [facility] 350.1.13.10 ity of [place] 4.2.7.2.686 [place]aff[place] as Professio [phone] [address] 2020-03-09 2020-03-09 [facility] 1..840.114 [id number] Univers 00:00:00 00:00:00 [facility] 350.1.13.10 ity of [place] 4.2.7.2.686 [place] Profess[place] [phone] [address] 2020-02-17 2020-02-17 Telephone [facility] 1..840.114 [id number] Univers 00:00:00 00:00:00 [facility] 350.1.13.10 ity of [place] 4.2.7.2.686 [place] Professio [phone] [address] 2020-02-17 2020-02-17 Telephone [facility] 1..840.114 [id number] Univers 00:00:00 00:00:00 [facility] 350.1.13.10 ity of [place] 4.2.7.2.686 [place] Professio [phone] [facility] [address] [facility] 2020-01-13 2020-01-13 Refleticia Almodovarbert [facility] 1.2.840.114 [id number] Univers 00:00:00 00:00:00 [facility] 350.1.13.10 ity of [place] 4.2.7.2.686 [place] Professio [phone] [facility] [address] [facility] 2020-01-11 2020-01-11 Insurance Broker 1, Adc Lab [facility] 1.2.840.114 [id number] Univers 10:55:34 11:10:34 Visit Anatoly Flores 350.1.13.10 [place] [phone] [facility] [address] 2020-01-11 2020-01-11 Outpatient R [facility] [id number] Univers 11:00:00 11:00:00 ity of [facility] 2020-01-10 2020-01-10 Office [facility] 1.2.431.515 [id number] Univers 16:40:13 17:43:53 Visit Anatoly Chan 350.1.13.10 i [place] of [place] [phone] [facility] [address] [facility] 2020-01-10 2020-01-[address] [facility] [id number] Univers 16:30:00 16:30:00 ANATOLY ity of [facility] 2019-12-10 2019-12-10 Orders Doctor VAISHALI 1.2.840.114 [id number] Univers 00:00:00 00:00:00 Only Unassigned, AIDA 350.1.13.10 ity of [place] [facility] 4.2.7.2.686 Raffy as [phone] [facility] [address] 2019-12-10 2019-12-10 Telephone [facility] 1.2.840.114 [id number] Univers 00:00:00 00:00:00 Anatoly Chan 350.1.13.10 i [place] [phone] Il dical nal 220 [facility] 2019-12-05 2019-12-05 [facility]ill [facility] 1.2.224.398 [id number] Univers 00:00:00 00:00:00 Anatoly Chan 350.1.13.10 i ty [place] [phone] Il dical nal 220 [facility] 2019-11-06 2019-11-[address] [facility] [id number] Univers 15:40:00 15:40:00 LILY turner o f [facility] 2019-11-03 2019-11-03 [facility] 1.2.840.114 [id number] Univers 00:00:00 00:00:00 [facility] 350.1.13.10 ity of [place] 4.2.7.2.686 [place] Professio [phone] [facility] [address] One 2019-11-01 2019-11-[address] [facility] [id number] Univers 11:35:42 23:59:00 ERNST itmargarette of [facility] 2019-11-01 2019-11-01 [facility] 1.2.840.114 [id number] Univers 11:35:00 23:59:00 Encounter Ernst Dustin 350.1.13.10 ity of [place] [phone] [facility] [address] 2019-11-01 2019-11-01 Orders Doctor VAISHALI 1.2.840.114 [id number] Univers 00:00:00 00:00:00 Only Unassigned, AIDA 350.1.13.10 ity of [place] [facility] 4.2.7.2.686 Raffy as [phone] [facility] [address] 2019-10-11 2019-10-11 Office [facility] 1.2.296.434 [id number] Univers 14:59:15 16:12:30 Visit Ernst Chan 350.1.13.10 i [place] [phone] Il dical nal 134 [facility] 2019-10-11 2019-10-[address] [facility] [id number] Univers 15:00:00 15:00:00 ERNST ity [facility] 2019-10-11 2019-10-11 Orders Doctor VAISHALI 1.2.840.114 [id number] Univers 00:00:00 00:00:00 Only Unassigned, AIDA 350.1.13.10 ity of [place] [facility] 4.2.7.2.686 [place]aff[place] as [phone] [address] 2019-10-07 2019-10-[address] [facility] [id number] Univers 14:00:00 14:00:00 ERNST yue [facility] 2019-09-30 2019-09-30 Refill [facility] 1.2.022.676 [id number] Univers 00:00:00 00:00:00 Anatoly Chan 350.1.13.10 i ty [place] [phone] [facility] [address] [facility] 2019-09-20 2019-09-[address] [facility] [id number] Univers 16:30:00 16:30:00 ANATOLY turner [facility] 2019-09-20 2019-09-20 Telemedici [facility] 1.2.840.114 [id number] Univers 09:52:35 10:22:35 ne Visit Anatoly Chan 350.1.13.10 ity of [place] [phone] Il dical [address] 2019-08-30 2019-08-30 Insurance Broker 2, Adc Lab [facility] 1.2.840.114 [id number] Univers 09:08:00 09:23:00 Visit Lily Jenkins 350.1.13.10 ity of [place] [phone] Il dical nal [address] 2019-08-30 2019-08-30 Outpatient R GREGORY [facility] [id number] Univers 09:15:00 09:15:00 QIANGJUN ity o f [facility] 2019-08-30 2019-08-30 Orders Doctor VAISHALI 1.2.840.114 [id number] Univers 00:00:00 00:00:00 Only Unassigned, AIDA 350.1.13.10 ity of [place] [facility] 4.2.7.2.686 [place]aff[place] as [phone] [address] 2019-08-22 2019-08-22 Outpatient R IGOR [facility] [id number] Univers 14:00:00 14:00:00 WONDIFUL ity o f [facility] 2019-08-22 2019-08-22 Telemedici [facility] 1.2.840.114 [id number] Univers 09:19:01 09:49:01 ne Visit [facility] 350.1.13.10 ity of [place] 4.2.7.2.686 [place] Professio [phone] [facility] [address] One 2019-08-22 2019-08-22 Transition Matthew Chávez 1.2.840.114 [id number] Univers 00:00:00 00:00:00 of Care Jessica Haney 350.1.13.10 it y of [place] [phone] [facility] [address] 2019-08-20 2019-08-20 Transition Matthew Chávez 1.2.840.114 [id number] Univers 00:00:00 00:00:00 of Care Jessica Haney 350.1.13.10 it y of [place] [phone] [address] 2019-08-19 2019-08-19 Telephone [facility] 1.2.840.114 [id number] Univers 00:00:00 00:00:00 Wondiful [facility] 350.1.13.10 ity of [place] 4.2.7.2.686 [place] Professio [phone] Il dical nal [address] One 2019-08-12 2019-08-[address] [facility] [id number] Univers 22:36:00 12:57:00 MOCTEZUMA ity o f [facility] 2019-08-12 2019-08-16 Hospital Diana Romano 1.2.840.114 [id number] Univers 22:36:00 12:57:00 Encounter Rhianna Parra 350.1.13.10 ity of Hospital 4.2.7.2.686 [place] as [phone] [facility] [address] 2019-08-16 2019-08-16 Outpatient R [facility] [id number] Univers 10:00:00 10:00:00 ity of [facility] 2019-08-12 2019-08-12 Telephone [facility] 1.2.262.125 [id number] Univers 00:00:00 00:00:00 Lily Chan 350.1.13.10 it[place] of [place] [phone] Il dical nal 0[address] [facility] 2019-08-09 2019-08-09 Telephone Diana Jenkins 1.2.120.025 [id number] Univers 00:00:00 00:00:00 Lily Waterford 350.1.13.10 i ty of Hospital 4.2.7.2.686 [place] [phone] [address] 2019-08-07 2019-08-07 Telephone Diana Jenkins 1.2.050.309 [id number] Univers 00:00:00 00:00:00 Qiangjun Aida 350.1.13.10 i ty of Hospital 4.2.7.2.686 [place] [phone] [address] 2019-08-05 2019-08-06 Office [facility] 1.2.840.114 [id number] Univers 10:54:42 21:31:12 Visit Lily Chan 350.1.13.10 ity of [place] [phone] Il [address] 2019-08-05 2019-08-[address] [facility] [id number] Univers 11:20:00 11:20:00 LILY herrera f [facility] 2019-08-05 2019-08-05 Orders Doctor VAISHALI 1.2.840.114 [id number] Univers 00:00:00 00:00:00 Only Unassigned, AIDA 350.1.13.10 ity of [place] [facility] 4.2.7.2.686 [place]aff[place] as [phone] [address] 2019-02-04 2019-02-04 Office [facility] 1.2.840.114 [id number] Univers 09:40:44 10:41:11 Visit Lily Chan 350.1.13.10 [place] [phone] [address] 2019-02-04 2019-02-04 Orders Doctor TOM 1.2.840.114 [id number] Univers 00:00:00 00:00:00 Only Unassigned, AIDA 350.1.13.10 ity of [place] [facility] 4.2.7.2.686 Raff[place] as [phone] [address] 2019-01-04 2019-01-04 Office [facility] 1.2.016.276 [id number] [facility] 14:30:15 15:51:35 Visit Anatoly Chan 350.1.13.10 i ty of [place] [phone] [facility] [address] [facility] 2019-01-04 2019-01-04 Orders Doctor VAISHALI 1.2.840.114 [id number] Univers 00:00:00 00:00:00 Only Unassigned, AIDA 350.1.13.10 ity of [place] [facility] 4.2.7.2.686 [place]aff[place] as [phone] [address] 2018-12-20 2018-12-20 Orders Doctor TOM 1.2.840.114 [id number] Univers 00:00:00 00:00:00 Only Unassigned, AIDA 350.1.13.10 ity of [place] [facility] 4.2.7.2.686 [place]aff[place] as [phone] [address] 2018-12-06 2018-12-06 Orders Doctor VAISHALI 1.2.840.114 [id number] Univers 00:00:00 00:00:00 Only Unassigned, AIDA 350.1.13.10 ity of [place] [facility] 4.2.7.2.686 [place]aff[place] as [phone] [address] 2018-06-27 2018-06-27 Out[facility] [id number] Common 11:57:00 11:57:[address] [facility] 2018-06-15 2018-06-15 Outpatient [facility] [id number] Common 16:24:00 16:24:[address] [facility] 2018-06-13 2018-06-13 Out[facility] [id number] Common 13:30:00 13:30:[address] [facility] 2017-12-12 2017-12-12 Outpatient [facility] [id number] Common 13:22:00 13:22:[address] [facility] 2017-11-20 2017-11-20 Outpatient [facility] [id number] Common 10:30:00 10:30:[address] [facility] 2017-11-02 2017-11-02 Outpatient [facility] [id number] Common 15:15:00 15:15:[address] [facility] Results Test Description Test Time Test Comments Results Result Comments Source POCT GLUCOSE (AUTOMATED) 2022-04-05 14:11:08 Test Item Value Reference Range Interpretation Comme nts POCT GLU (test code = 8205484679) 114 mg/dL 70-110 H Lab Interpretation (test code = 68750-9) [facility] 10:43:43 Test Item Value Reference Range Interpretation Comments POCT GLU (test code = 9564991251) 100 mg/dL 70-110 Lab Interpretation (test code = Normal 87182-4) [facility] GLUCOSE (AUTOMATED)2022-04-05 06:17:31 Test Item Value Reference Range Interpretation Comments POCT GLU (test code = 6470973666) 69 mg/dL 70-110 L Lab Interpretation (test code = Abnormal 89129-8) [facility] GLUCOSE (AUTOMATED)2022-04-05 03:25:11 Test Item Value Reference Range Interpretation Comments POCT GLU (test code = 6258099584) 79 mg/dL 70-110 Lab Interpretation (test code = Normal 13334-0) [facility] GLUCOSE (AUTOMATED)2022-04-04 22:24:08 Test Item Value Reference Range Interpretation Comments POCT GLU (test code = 6305260391) 113 mg/dL 70-110 H Lab Interpretation (test code = Abnormal 86184-1) [facility] GLUCOSE (AUTOMATED)2022-04-04 18:10:47 Test Item Value Reference Range Interpretation Comments POCT GLU (test code = 6332636127) 101 mg/dL 70-110 Lab Interpretation (test code = Normal 94098-1) [facility] GLUCOSE (AUTOMATED)2022-04-04 14:12:44 Test Item Value Reference Range Interpretation Comments POCT GLU (test code = 5402888685) 165 mg/dL 70-110 H Lab Interpretation (test code = Abnormal 68342-9) [facility] GLUCOSE (AUTOMATED)2022-04-04 10:28:25 Test Item Value Reference Range Interpretation Comments POCT GLU (test code = 4511020082) 133 mg/dL 70-110 H Lab Interpretation (test code = Abnormal 69527-2) [facility] GLUCOSE (AUTOMATED)2022-04-04 05:26:37 Test Item Value Reference Range Interpretation Comments POCT GLU (test code = 4370663169) 112 mg/dL 70-110 H Lab Interpretation (test code = Abnormal 13518-8) [facility] GLUCOSE (AUTOMATED)2022-04-04 02:08:29 Test Item Value Reference Range Interpretation Comments POCT GLU (test code = 5708589259) 191 mg/dL 70-110 H Lab Interpretation (test code = Abnormal 20216-9) [facility] GLUCOSE (AUTOMATED)2022-04-03 22:38:37 Test Item Value Reference Range Interpretation Comments POCT GLU (test code = 5585027407) 134 mg/dL 70-110 H Lab Interpretation (test code = Abnormal 34585-7) [facility] GLUCOSE (AUTOMATED)2022-04-03 18:00:04 Test Item Value Reference Range Interpretation Comments POCT GLU (test code = 7184388639) 176 mg/dL 70-110 H Lab Interpretation (test code = Abnormal 74781-7) [facility] GLUCOSE (AUTOMATED)2022-04-03 14:01:03 Test Item Value Reference Range Interpretation Comments POCT GLU (test code = 0067936512) 257 mg/dL 70-110 H Lab Interpretation (test code = Abnormal 38936-4) [facility] GLUCOSE (AUTOMATED)2022-04-03 10:50:04 Test Item Value Reference Range Interpretation Comments POCT GLU (test code = 7014635865) 305 mg/dL 70-110 H Lab Interpretation (test code = Abnormal 13778-2) [facility] GLUCOSE (AUTOMATED)2022-04-03 05:41:06 Test Item Value Reference Range Interpretation Comments POCT GLU (test code = 7568053784) 299 mg/dL 70-110 H Lab Interpretation (test code = Abnormal 40920-6) [facility] GLUCOSE (AUTOMATED)2022-04-03 00:54:28 Test Item Value Reference Range Interpretation Comments POCT GLU (test code = 0875483883) 253 mg/dL 70-110 H Lab Interpretation (test code = Abnormal 76609-7) [facility] GLUCOSE (AUTOMATED)2022-04-02 20:50:58 Test Item Value Reference Range Interpretation Comments POCT GLU (test code = 5268357925) 258 mg/dL 70-110 H Lab Interpretation (test code = Abnormal 83214-5) [facility] GLUCOSE (AUTOMATED)2022-04-02 16:47:03 Test Item Value Reference Range Interpretation Comments POCT GLU (test code = 5017428179) 319 mg/dL 70-110 H Lab Interpretation (test code = Abnormal 90785-3) [facility] GLUCOSE (AUTOMATED)2022-04-02 12:41:27 Test Item Value Reference Range Interpretation Comments POCT GLU (test code = 1996392306) 197 mg/dL 70-110 H Lab Interpretation (test code = Abnormal 34027-0) [facility] GLUCOSE (AUTOMATED)2022-04-02 08:30:53 Test Item Value Reference Range Interpretation Comments POCT GLU (test code = 1695031023) 201 mg/dL 70-110 H Lab Interpretation (test code = Abnormal 57996-3) [facility] GLUCOSE (AUTOMATED)2022-04-02 04:59:59 Test Item Value Reference Range Interpretation Comments POCT GLU (test code = 7360242758) 264 mg/dL 70-110 H Lab Interpretation (test code = Abnormal 65501-6) [facility] GLUCOSE (AUTOMATED)2022-04-02 00:29:26 Test Item Value Reference Range Interpretation Comments POCT GLU (test code = 0060745085) 236 mg/dL 70-110 H Lab Interpretation (test code = Abnormal 29612-9) [facility] GLUCOSE (AUTOMATED)2022-04-01 21:19:50 Test Item Value Reference Range Interpretation Comments POCT GLU (test code = 3314893447) 223 mg/dL 70-110 H Lab Interpretation (test code = Abnormal 68345-4) [facility] METABOLIC PANEL (NA, K, CL, CO2, GLUCOSE, BUN, CREATININE, CA)2022-04-01 17:17:56 Test Item Value Reference Range Interpretation Comments NA (test code = 133 mmol/L 135-145 L 5294898189) K (test code = 4.6 mmol/L 3.5-5.0 4181809522) CL (test code = 103 mmol/L 98-108 8546547004) CO2 TOTAL (test code = 28 mmol/L 23-31 1409126361) AGAP (test code = 2-16 0493407034) BUN (test code = 26 mg/dL 7-23 H 9503313836) GLUCOSE (test code = 145 mg/dL 70-110 H 2406938858) CREATININE (test code = 0.93 mg/dL 0.50-1.04 8807786092) CALCIUM (test code = 7.7 mg/dL 8.6-10.6 L 4663391633) eGFR (test code = mL/min/1.73m2 5720848854) NISHA (test code = NISHA) Association of [...] tests). Lab Interpretation Abnormal (test code = 60073-2) [facility] GLUCOSE (AUTOMATED)2022-04-01 17:08:04 Test Item Value Reference Range Interpretation Comments POCT GLU (test code = 2652202788) 161 mg/dL 70-110 H Lab Interpretation (test code = Abnormal 10443-3) [facility] GLUCOSE (AUTOMATED)2022-04-01 14:56:34 Test Item Value Reference Range Interpretation Comments POCT GLU (test code = 6868963733) 186 mg/dL 70-110 H Lab Interpretation (test code = Abnormal 84351-0) [facility] GLUCOSE (AUTOMATED)2022-04-01 12:25:55 Test Item Value Reference Range Interpretation Comments POCT GLU (test code = 2977688602) 223 mg/dL 70-110 H Lab Interpretation (test code = Abnormal 15400-8) [facility] GLUCOSE (AUTOMATED)2022-04-01 09:06:12 Test Item Value Reference Range Interpretation Comments POCT GLU (test code = 4707317132) 154 mg/dL 70-110 H Lab Interpretation (test code = Abnormal 78854-2) [facility] GLUCOSE (AUTOMATED)2022-04-01 03:44:32 Test Item Value Reference Range Interpretation Comments POCT GLU (test code = 7885973442) 179 mg/dL 70-110 H Lab Interpretation (test code = Abnormal 04550-0) [facility] GLUCOSE (AUTOMATED)2022-04-01 01:24:24 Test Item Value Reference Range Interpretation Comments POCT GLU (test code = 1935652128) 70 mg/dL 70-110 Lab Interpretation (test code = Normal 92654-4) [facility] GLUCOSE (AUTOMATED)2022-04-01 01:01:31 Test Item Value Reference Range Interpretation Comments POCT GLU (test code = 2330612277) 46 mg/dL 70-110 LL Lab Interpretation (test code = Abnormal 97740-9) [facility] GLUCOSE (AUTOMATED)2022-03-31 21:01:35 Test Item Value Reference Range Interpretation Comments POCT GLU (test code = 6558759782) 95 mg/dL 70-110 Lab Interpretation (test code = Normal 23471-5) [facility] GLUCOSE (AUTOMATED)2022-03-31 17:01:49 Test Item Value Reference Range Interpretation Comments POCT GLU (test code = 0192476575) 66 mg/dL 70-110 L Lab Interpretation (test code = Abnormal 05516-6) [facility] 16[facility]36:57 Test Item Value Reference Range Interpretation Comments MAGNESIUM (test code = 3053088547) 1.4 mg/dL 1.7-2.4 L Lab Interpretation (test code = Abnormal 74434-0) [facility] 16:36:57 Test Item Value Reference Range Interpretation Comments PHOSPHORUS (test code = 5376208323) 3.5 mg/dL 2.5-5.0 Lab Interpretation (test code = Normal 82421-6) [facility] METABOLIC PANEL (NA, K, CL, CO2, GLUCOSE, BUN, CREATININE, CA)2022-03-31 16:36:56 Test Item Value Reference Range Interpretation Comments NA (test code = 139 mmol/L 135-145 2713888527) K (test code = 3.4 mmol/L 3.5-5.0 L 9625200159) CL (test code = 110 mmol/L 98-108 H 1390465948) CO2 TOTAL (test code = 24 mmol/L 23-31 5415455521) AGAP (test code = 2-16 4830823500) BUN (test code = 16 mg/dL 7-23 1747707060) GLUCOSE (test code = 61 mg/dL 70-110 L 4972683314) CREATININE (test code = 0.66 mg/dL 0.50-1.04 5379931494) CALCIUM (test code = 6.9 mg/dL 8.6-10.6 L 6091355352) eGFR (test code = mL/min/1.73m2 2861274110) NISHA (test code = NISHA) Association of [...] tests). Lab Interpretation Abnormal (test code = 96876-8) [facility]2022-[facility]-31 13:11:45 Test Item Value Reference Range Interpretation Comments POCT GLU (test code = 3561583454) 95 mg/dL 70-110 Lab Interpretation (test code = Normal 38192-4) [facility] WITH [id number] 11:31:03 Test Item Value Reference Range Interpretation [...] RDW-SD (test code = 39.2 fL 39.0-49.9 60386-4) RDW-CV (test code = 12.4 % 12.0-15.5 788-0) PLT (test code = See_Comment H [Automated 777-3) message] The sy stem which generated this result transmitted reference range : 166 - 358 10*3/ ?L. The reference r chelsie was not used to interpret this result as normal/abnormal . MPV (test code = 10.0 fL 9.5-12.9 13561-7) NRBC/100 WBC (test See_Comment [Automat ed code = 1442034777) message] The system which generated this result transmitted reference range : 0.0 - 10.0 /100 WBCs. The refer ence range was not u sed to interpret th is result as normal/abnormal . NRBC x10^3 (test code See_Comment [Auto mated = 8689005022) message] The s ystem which generated this result transmitted reference range : 10*3/?L. The reference range was not used to interpret this result as normal/abnormal . GRAN MAT (NEUT) % 69.2 % (test code = 770-8) IMM GRAN % (test code 0.30 % = 1218632958) LYMPH % (test code = 22.5 % 736-9) MONO % (test code = 5.3 % 5905-5) EOS % (test code = 2.2 % 713-8) BASO % (test code = 0.5 % 706-2) GRAN MAT x10^3(ANC) 8.67 10*3/uL 1.88-7.09 H (test code = 0750646171) IMM GRAN x10^3 (test 0.04 10*3/uL 0.00-0.06 code = 7367912798) LYMPH x10^3 (test code 2.82 10*3/uL 1.32-3.29 = 731-0) MONO x10^3 (test code 0.67 10*3/uL 0.33-0.92 = 742-7) EOS x10^3 (test code = 0.27 10*3/uL 0.03-0.39 711-2) BASO x10^3 (test code 0.06 10*3/uL 0.01-0.07 = 704-7) Lab Interpretation Abnormal (test code = 04517-9) [facility] GLUCOSE (AUTOMATED)2022-03-31 09:05:17 Test Item Value Reference Range Interpretation Comments POCT GLU (test code = 2177460750) 132 mg/dL 70-110 H Lab Interpretation (test code = Abnormal 32782-5) [facility] GLUCOSE (AUTOMATED)2022-03-31 06:01:00 Test Item Value Reference Range Interpretation Comments POCT GLU (test code = 8201994249) 108 mg/dL 70-110 Lab Interpretation (test code = Normal 35825-0) [facility] GLUCOSE (AUTOMATED)2022-03-31 05:40:03 Test Item Value Reference Range Interpretation Comments POCT GLU (test code = 5167914480) 52 mg/dL 70-110 L Lab Interpretation (test code = Abnormal 02414-4) [facility] GLUCOSE (AUTOMATED)2022-03-31 05:07:45 Test Item Value Reference Range Interpretation Comments POCT GLU (test code = 7196310839) 52 mg/dL 70-110 L Lab Interpretation (test code = Abnormal 69556-4) [facility] GLUCOSE (AUTOMATED)2022-03-31 01:01:03 Test Item Value Reference Range Interpretation Comments POCT GLU (test code = 9149457844) 92 mg/dL 70-110 Lab Interpretation (test code = Normal 20735-2) [facility] GLUCOSE (AUTOMATED)2022-03-30 21:18:18 Test Item Value Reference Range Interpretation Comments POCT GLU (test code = 0365724744) 121 mg/dL 70-110 H Lab Interpretation (test code = Abnormal 13093-3) [facility] GLUCOSE (AUTOMATED)2022-03-30 21:18:18 Test Item Value Reference Range Interpretation Comments POCT GLU (test code = 5978029245) 121 mg/dL 70-110 H Lab Interpretation (test code = Abnormal 08627-1) [facility] GLUCOSE (AUTOMATED)2022-03-30 16:30:55 Test Item Value Reference Range Interpretation Comments POCT GLU (test code = 1992436472) 233 mg/dL 70-110 H Lab Interpretation (test code = Abnormal 57939-6) [facility] GLUCOSE (AUTOMATED)2022-03-30 16:30:55 Test Item Value Reference Range Interpretation Comments POCT GLU (test code = 6214511285) 233 mg/dL 70-110 H Lab Interpretation (test code = Abnormal 88634-2) [facility] GLUCOSE (AUTOMATED)2022-03-30 12:53:10 Test Item Value Reference Range Interpretation Comments POCT GLU (test code = 0068245440) 249 mg/dL 70-110 H Lab Interpretation (test code = Abnormal 04959-1) [facility] GLUCOSE (AUTOMATED)2022-03-30 12:53:10 Test Item Value Reference Range Interpretation Comments POCT GLU (test code = 7259640903) 249 mg/dL 70-110 H Lab Interpretation (test code = Abnormal 91000-3) [facility] GLUCOSE (AUTOMATED)2022-03-30 09:07:14 Test Item Value Reference Range Interpretation Comments POCT GLU (test code = 221 mg/dL 70-110 H Notifi ed Provider [id number]) Lab Interpretation (test Abnormal code = 44897-6) [facility] GLUCOSE (AUTOMATED)2022-03-30 09:07:14 Test Item Value Reference Range Interpretation Comments POCT GLU (test code = 221 mg/dL 70-110 H Notifi ed Provider [id number]) Lab Interpretation (test Abnormal code = 21805-1) [facility] GLUCOSE (AUTOMATED)2022-03-30 04:50:50 Test Item Value Reference Range Interpretation Comments POCT GLU (test code = 251 mg/dL 70-110 H Notifi ed Provider [id number]) Lab Interpretation (test Abnormal code = 10633-5) [facility] GLUCOSE (AUTOMATED)2022-03-30 04:50:50 Test Item Value Reference Range Interpretation Comments POCT GLU (test code = 251 mg/dL 70-110 H Notifi ed Provider [id number]) Lab Interpretation (test Abnormal code = 74036-6) [facility] GLUCOSE (AUTOMATED)2022-03-30 01:00:14 Test Item Value Reference Range Interpretation Comments POCT GLU (test code = 242 mg/dL 70-110 H Notifi ed Provider [id number]) Lab Interpretation (test Abnormal code = 32237-4) [facility] GLUCOSE (AUTOMATED)2022-03-30 01:00:14 Test Item Value Reference Range Interpretation Comments POCT GLU (test code = 242 mg/dL 70-110 H Notifi ed Provider [id number]) Lab Interpretation (test Abnormal code = 00397-4) [facility] 00:04:32 Test Item Value Reference Range Interpretation Comments PH (test code = 2) 7.35-7.45 PCO2 (test code = See_Comment L [Automate d message] 9511241310) The system [employer] generated this result transmit anthony reference range : 35 - 45 mmHg. The reference range was not used to interpret this result as normal/abnormal . PO2 (test code = See_Comment H [Automated message] 2055842412) The system [employer] generated this result transmit anthony reference range : 80 - 100 mmHg. The reference range was not used to interpret this result as normal/abnormal . HCO3 (test code = See_Comment [Automate d message] 6795378699) The system [employer] generated this result transmit anthony reference range : 22 - 26 mEq/L. The reference range was not used to interpret this result as normal/abnormal . BE (test code = See_Comment [Automated message] 2498338049) The system [employer] generated this result transmit anthony reference range : -3.0 - 3.0 mEq/ L. The reference r chelsie was not used to interpret this result as normal/abnormal . THB (test code = 11.1 g/dL 12.0-16.0 L 4511377611) %O2HB (test code = 98.6 % 94.0-99.0 2065972423) %COHB ART (test code = 0.3 % 0.0-1.5 0284653424) %METHB ART (test code = 0.3 % 0.4-1.5 L 6721396703) VOL%O2 ART (test code = 16.0 % 15.0-23.0 QUES 7767813259) NA (test code = 136 mmol/L 135-145 1415833448) K+ (test code = 4.0 mmol/L 3.5-5.0 7434708695) AC CA IONZ (test code = 4.50 mg/dL 4.50-5.30 5328385101) GLUCOSE (test code = 154 mg/dL 70-110 H 9630525129) Lab Interpretation Abnormal (test code = 85571-0) [facility] 00:04:32 Test Item Value Reference Range Interpretation Comments PH (test code = 2) 7.35-7.45 PCO2 (test code = See_Comment L [Automate d message] 0036618807) The system [employer] generated this result transmit anthony reference range : 35 - 45 mmHg. The reference range was not used to interpret this result as normal/abnormal . PO2 (test code = See_Comment H [Automated message] 6726013161) The system [employer] generated this result transmit anthony reference range : 80 - 100 mmHg. The reference range was not used to interpret this result as normal/abnormal . HCO3 (test code = See_Comment [Automate d message] 7746474740) The system [employer] generated this result transmit anthony reference range : 22 - 26 mEq/L. The reference range was not used to interpret this result as normal/abnormal . BE (test code = See_Comment [Automated message] 8049666808) The system [employer] generated this result transmit anthony reference range : -3.0 - 3.0 mEq/ L. The reference r chelsie was not used to interpret this result as normal/abnormal . THB (test code = 11.1 g/dL 12.0-16.0 L 0426725549) %O2HB (test code = 98.6 % 94.0-99.0 3656167351) %COHB ART (test code = 0.3 % 0.0-1.5 8668026537) %METHB ART (test code = 0.3 % 0.4-1.5 L 3797884375) VOL%O2 ART (test code = 16.0 % 15.0-23.0 QUES 7582450423) NA (test code = 136 mmol/L 135-145 6938628722) K+ (test code = 4.0 mmol/L 3.5-5.0 3968541338) AC CA IONZ (test code = 4.50 mg/dL 4.50-5.30 2981982909) GLUCOSE (test code = 154 mg/dL 70-110 H 8655384480) Lab Interpretation Abnormal (test code = 14179-4) [facility] GLUCOSE (AUTOMATED)2022-03-29 21:50:44 Test Item Value Reference Range Interpretation Comments POCT GLU (test code = 8304348082) 231 mg/dL 70-110 H Lab Interpretation (test code = Abnormal 65739-5) [facility] GLUCOSE (AUTOMATED)2022-03-29 21:50:44 Test Item Value Reference Range Interpretation Comments POCT GLU (test code = 9158523715) 231 mg/dL 70-110 H Lab Interpretation (test code = Abnormal 74926-6) [facility] WITH [id number] 18:27:53 Test Item Value Reference Range Interpretation [...] (test code = 38.5 fL 39.0-49.9 L 75342-4) RDW-CV (test code = 12.0 % 12.0-15.5 788-0) PLT (test code = See_Comment H [Automated 777-3) message] The sy stem which generated this result transmitted reference range : 166 - 358 10*3/ ?L. The reference r chelsie was not used to interpret this result as normal/abnormal . MPV (test code = 9.7 fL 9.5-12.9 41576-2) NRBC/100 WBC (test See_Comment [Automat ed code = 6365293118) message] The system which generated this result transmitted reference range : 0.0 - 10.0 /100 WBCs. The refer ence range was not u sed to interpret th is result as normal/abnormal . NRBC x10^3 (test code See_Comment [Auto mated = 5680477101) message] The s ystem which generated this result transmitted reference range : 10*3/?L. The reference range was not used to interpret this result as normal/abnormal . GRAN MAT (NEUT) % 70.7 % (test code = 770-8) IMM GRAN % (test code 0.30 % = 6329198761) LYMPH % (test code = 21.1 % 736-9) MONO % (test code = 4.9 % 5905-5) EOS % (test code = 2.6 % 713-8) BASO % (test code = 0.4 % 706-2) GRAN MAT x10^3(ANC) 6.92 10*3/uL 1.88-7.09 (test code = 7617384222) IMM GRAN x10^3 (test 0.03 10*3/uL 0.00-0.06 code = 1131885281) LYMPH x10^3 (test code 2.07 10*3/uL 1.32-3.29 = 731-0) MONO x10^3 (test code 0.48 10*3/uL 0.33-0.92 = 742-7) EOS x10^3 (test code = 0.25 10*3/uL 0.03-0.39 711-2) BASO x10^3 (test code 0.04 10*3/uL 0.01-0.07 = 704-7) Lab Interpretation Abnormal (test code = 22118-2) [facility] WITH [id number] 18:27:53 Test Item Value Reference Range Interpretation Comments WBC (test code = See_Comment [Automated 8890-2) message] The sy stem which generated this result transmitted reference range : 4.30 - 11.10 10*3/?L. The reference range was not used to interpret this result as normal/abnormal . RBC (test code = See_Comment L [Automated 595-8) message] The sy stem which generated this [...] (test code = 38.5 fL 39.0-49.9 L 00882-1) RDW-CV (test code = 12.0 % 12.0-15.5 788-0) PLT (test code = See_Comment H [Automated 777-3) message] The sy stem which generated this result transmitted reference range : 166 - 358 10*3/ ?L. The reference r chelsie was not used to interpret this result as normal/abnormal . MPV (test code = 9.7 fL 9.5-12.9 38904-8) NRBC/100 WBC (test See_Comment [Automat ed code = 3373541745) message] The system which generated this result transmitted reference range : 0.0 - 10.0 /100 WBCs. The refer ence range was not u sed to interpret th is result as normal/abnormal . NRBC x10^3 (test code See_Comment [Auto mated = 4250561547) message] The s ystem which generated this result transmitted reference range : 10*3/?L. The reference range was not used to interpret this result as normal/abnormal . GRAN MAT (NEUT) % 70.7 % (test code = 770-8) IMM GRAN % (test code 0.30 % = 0490258886) LYMPH % (test code = 21.1 % 736-9) MONO % (test code = 4.9 % 5905-5) EOS % (test code = 2.6 % 713-8) BASO % (test code = 0.4 % 706-2) GRAN MAT x10^3(ANC) 6.92 10*3/uL 1.88-7.09 (test code = 2004504529) IMM GRAN x10^3 (test 0.03 10*3/uL 0.00-0.06 code = 2911638761) LYMPH x10^3 (test code 2.07 10*3/uL 1.32-3.29 = 731-0) MONO x10^3 (test code 0.48 10*3/uL 0.33-0.92 = 742-7) EOS x10^3 (test code = 0.25 10*3/uL 0.03-0.39 711-2) BASO x10^3 (test code 0.04 10*3/uL 0.01-0.07 = 704-7) Lab Interpretation Abnormal (test code = 26138-6) [facility] WITH [id number] 18:27:53 Test Item Value Reference Range Interpretation [...] (test code = 38.5 fL 39.0-49.9 L 87159-5) RDW-CV (test code = 12.0 % 12.0-15.5 788-0) PLT (test code = See_Comment H [Automated 777-3) message] The sy stem which generated this result transmitted reference range : 166 - 358 10*3/ ?L. The reference r chelsie was not used to interpret this result as normal/abnormal . MPV (test code = 9.7 fL 9.5-12.9 13914-6) NRBC/100 WBC (test See_Comment [Automat ed code = 3538867462) message] The system which generated this result transmitted reference range : 0.0 - 10.0 /100 WBCs. The refer ence range was not u sed to interpret th is result as normal/abnormal . NRBC x10^3 (test code See_Comment [Auto mated = 5967318722) message] The s ystem which generated this result transmitted reference range : 10*3/?L. The reference range was not used to interpret this result as normal/abnormal . GRAN MAT (NEUT) % 70.7 % (test code = 770-8) IMM GRAN % (test code 0.30 % = 3195415181) LYMPH % (test code = 21.1 % 736-9) MONO % (test code = 4.9 % 5905-5) EOS % (test code = 2.6 % 713-8) BASO % (test code = 0.4 % 706-2) GRAN MAT x10^3(ANC) 6.92 10*3/uL 1.88-7.09 (test code = 5147327478) IMM GRAN x10^3 (test 0.03 10*3/uL 0.00-0.06 code = 3537710076) LYMPH x10^3 (test code 2.07 10*3/uL 1.32-3.29 = 731-0) MONO x10^3 (test code 0.48 10*3/uL 0.33-0.92 = 742-7) EOS x10^3 (test code = 0.25 10*3/uL 0.03-0.39 711-2) BASO x10^3 (test code 0.04 10*3/uL 0.01-0.07 = 704-7) Lab Interpretation Abnormal (test code = 88205-0) [facility] [id number] 16:47:06 Test Item Value Reference Range Interpretation Comments ABO & RH (test code O POSITIVE Performe d at [facility] = 20) Laboratory Serv [facility] Blood Bank3 [facility] [address]Sdcc Free: [phone] A No. [id number] IAT (test code = Negative Performed a t [facility] 1185) Laboratory Serv [facility] Blood [facility]3 [address] [facility] s [address]Bjmy Free: [phone] A No. [id number] [facility] - [id number] 16:47:06 Test Item Value Reference Range Interpretation Comments ABO & RH (test code O POSITIVE Performe d at [facility] = 20) Laboratory [facility] Blood [facility] [address] [place] [address] s [address]Iasp Free: [phone] A No. [id number] IAT (test code = Negative Performed a t [facility] 1185) Laboratory [facility] Blood [address] s [address]Hjmz Free: [phone] A No. [id number] [facility] and Screen - [id number] 16:47:06 Test Item Value Reference Range Interpretation Comments ABO & RH (test code O POSITIVE Performe d at [facility] = 20) Laboratory [facility] Blood [facility] [address] [place] [address] s [address]Gjsx Free: [phone] A No. [id number] IAT (test code = Negative Performed a t [facility] 1185) Laboratory [facility] Blood [address] s [address]Tuau Free: [phone] A No. [id number] [facility] GLUCOSE (AUTOMATED)2022-03-29 13:09:38 Test Item Value Reference Range Interpretation Comments POCT GLU (test code = 0506516024) 131 mg/dL 70-110 H Lab Interpretation (test code = Abnormal 45854-5) [facility] GLUCOSE (AUTOMATED)2022-03-29 13:09:38 Test Item Value Reference Range Interpretation Comments POCT GLU (test code = 8156806565) 131 mg/dL 70-110 H Lab Interpretation (test code = Abnormal 88996-1) [facility] GLUCOSE (AUTOMATED)2022-03-29 13:09:38 Test Item Value Reference Range Interpretation Comments POCT GLU (test code = 4030847542) 131 mg/dL 70-110 H Lab Interpretation (test code = Abnormal 24883-8) [facility] GLUCOSE (AUTOMATED)2022-03-29 09:20:58 Test Item Value Reference Range Interpretation Comments POCT GLU (test code = 133 mg/dL 70-110 H Notifi ed Provider [id number]) Lab Interpretation (test Abnormal code = 32249-5) [facility] GLUCOSE (AUTOMATED)2022-03-29 09:20:58 Test Item Value Reference Range Interpretation Comments POCT GLU (test code = 133 mg/dL 70-110 H Notifi ed Provider [id number]) Lab Interpretation (test Abnormal code = 37704-5) [facility] GLUCOSE (AUTOMATED)2022-03-29 09:20:58 Test Item Value Reference Range Interpretation Comments POCT GLU (test code = 133 mg/dL 70-110 H Notifi ed Provider [id number]) Lab Interpretation (test Abnormal code = 25722-1) [facility] GLUCOSE (AUTOMATED)2022-03-29 05:02:17 Test Item Value Reference Range Interpretation Comments POCT GLU (test code = 212 mg/dL 70-110 H Notifi ed Provider [id number]) Lab Interpretation (test Abnormal code = 93883-5) [facility] GLUCOSE (AUTOMATED)2022-03-29 05:02:17 Test Item Value Reference Range Interpretation Comments POCT GLU (test code = 212 mg/dL 70-110 H Notifi ed Provider [id number]) Lab Interpretation (test Abnormal code = 72171-6) [facility] GLUCOSE (AUTOMATED)2022-03-29 05:02:17 Test Item Value Reference Range Interpretation Comments POCT GLU (test code = 212 mg/dL 70-110 H Notifi ed Provider [id number]) Lab Interpretation (test Abnormal code = 52185-1) [facility] GLUCOSE (AUTOMATED)2022-03-29 01:28:43 Test Item Value Reference Range Interpretation Comments POCT GLU (test code = 4351840038) 192 mg/dL 70-110 H Lab Interpretation (test code = Abnormal 97757-5) [facility] GLUCOSE (AUTOMATED)2022-03-29 01:28:43 Test Item Value Reference Range Interpretation Comments POCT GLU (test code = 6935419009) 192 mg/dL 70-110 H Lab Interpretation (test code = Abnormal 43571-0) [facility] GLUCOSE (AUTOMATED)2022-03-29 01:28:43 Test Item Value Reference Range Interpretation Comments POCT GLU (test code = 9338033235) 192 mg/dL 70-110 H Lab Interpretation (test code = Abnormal 87072-1) [facility] GLUCOSE (AUTOMATED)2022-03-28 21:49:45 Test Item Value Reference Range Interpretation Comments POCT GLU (test code = 6109315194) 138 mg/dL 70-110 H Lab Interpretation (test code = Abnormal 27276-3) [facility] GLUCOSE (AUTOMATED)2022-03-28 21:49:45 Test Item Value Reference Range Interpretation Comments POCT GLU (test code = 4381815699) 138 mg/dL 70-110 H Lab Interpretation (test code = Abnormal 78731-2) [facility] GLUCOSE (AUTOMATED)2022-03-28 21:49:45 Test Item Value Reference Range Interpretation Comments POCT GLU (test code = 1564188209) 138 mg/dL 70-110 H Lab Interpretation (test code = Abnormal 95013-8) [facility] GLUCOSE (AUTOMATED)2022-03-28 21:49:45 Test Item Value Reference Range Interpretation Comments POCT GLU (test code = 2006330512) 138 mg/dL 70-110 H Lab Interpretation (test code = Abnormal 77287-1) [facility] GLUCOSE (AUTOMATED)2022-03-28 13:04:50 Test Item Value Reference Range Interpretation Comments POCT GLU (test code = 5818744676) 142 mg/dL 70-110 H Lab Interpretation (test code = Abnormal 90837-8) [facility] GLUCOSE (AUTOMATED)2022-03-28 13:04:50 Test Item Value Reference Range Interpretation Comments POCT GLU (test code = 8074098551) 142 mg/dL 70-110 H Lab Interpretation (test code = Abnormal 29503-1) [facility] GLUCOSE (AUTOMATED)2022-03-28 13:04:50 Test Item Value Reference Range Interpretation Comments POCT GLU (test code = 4594862075) 142 mg/dL 70-110 H Lab Interpretation (test code = Abnormal 93970-1) [facility] GLUCOSE (AUTOMATED)2022-03-28 13:04:50 Test Item Value Reference Range Interpretation Comments POCT GLU (test code = 3251295108) 142 mg/dL 70-110 H Lab Interpretation (test code = Abnormal 53725-3) [facility] GLUCOSE (AUTOMATED)2022-03-28 13:04:50 Test Item Value Reference Range Interpretation Comments POCT GLU (test code = 0064497263) 142 mg/dL 70-110 H Lab Interpretation (test code = Abnormal 37884-8) [facility] GLUCOSE (AUTOMATED)2022-03-28 09:24:11 Test Item Value Reference Range Interpretation Comments POCT GLU (test code = 118 mg/dL 70-110 H Notifi ed Provider [id number]) Lab Interpretation (test Abnormal code = 41927-1) [facility] GLUCOSE (AUTOMATED)2022-03-28 09:24:11 Test Item Value Reference Range Interpretation Comments POCT GLU (test code = 118 mg/dL 70-110 H Notifi ed Provider [id number]) Lab Interpretation (test Abnormal code = 02814-6) [facility] GLUCOSE (AUTOMATED)2022-03-28 09:24:11 Test Item Value Reference Range Interpretation Comments POCT GLU (test code = 118 mg/dL 70-110 H Notifi ed Provider [id number]) Lab Interpretation (test Abnormal code = 36103-8) [facility] GLUCOSE (AUTOMATED)2022-03-28 09:24:11 Test Item Value Reference Range Interpretation Comments POCT GLU (test code = 118 mg/dL 70-110 H Notifi ed Provider [id number]) Lab Interpretation (test Abnormal code = 89450-3) [facility] GLUCOSE (AUTOMATED)2022-03-28 05:23:36 Test Item Value Reference Range Interpretation Comments POCT GLU (test code = 3757720938) 95 mg/dL 70-110 Lab Interpretation (test code = Normal 65048-7) [facility] GLUCOSE (AUTOMATED)2022-03-28 05:23:36 Test Item Value Reference Range Interpretation Comments POCT GLU (test code = 9078467982) 95 mg/dL 70-110 Lab Interpretation (test code = Normal 13337-7) [facility] GLUCOSE (AUTOMATED)2022-03-28 05:23:36 Test Item Value Reference Range Interpretation Comments POCT GLU (test code = 3955373738) 95 mg/dL 70-110 Lab Interpretation (test code = Normal 36957-0) [facility] GLUCOSE (AUTOMATED)2022-03-28 05:23:36 Test Item Value Reference Range Interpretation Comments POCT GLU (test code = 0606195343) 95 mg/dL 70-110 Lab Interpretation (test code = Normal 25559-8) [facility] GLUCOSE (AUTOMATED)2022-03-28 04:46:42 Test Item Value Reference Range Interpretation Comments POCT GLU (test code = 68 mg/dL 70-110 L Notifi ed Provider [id number]) Lab Interpretation (test Abnormal code = 04884-1) [facility] GLUCOSE (AUTOMATED)2022-03-28 04:46:42 Test Item Value Reference Range Interpretation Comments POCT GLU (test code = 68 mg/dL 70-110 L Notifi ed Provider [id number]) Lab Interpretation (test Abnormal code = 08285-4) [facility] GLUCOSE (AUTOMATED)2022-03-28 04:46:42 Test Item Value Reference Range Interpretation Comments POCT GLU (test code = 68 mg/dL 70-110 L Notifi ed Provider [id number]) Lab Interpretation (test Abnormal code = 76725-4) [facility] GLUCOSE (AUTOMATED)2022-03-28 04:46:42 Test Item Value Reference Range Interpretation Comments POCT GLU (test code = 68 mg/dL 70-110 L Notifi ed Provider [id number]) Lab Interpretation (test Abnormal code = 86346-1) [facility] GLUCOSE (AUTOMATED)2022-03-28 01:30:55 Test Item Value Reference Range Interpretation Comments POCT GLU (test code = 120 mg/dL 70-110 H Notifi ed Provider [id number]) Lab Interpretation (test Abnormal code = 50310-7) [facility] GLUCOSE (AUTOMATED)2022-03-28 01:30:55 Test Item Value Reference Range Interpretation Comments POCT GLU (test code = 120 mg/dL 70-110 H Notifi ed Provider [id number]) Lab Interpretation (test Abnormal code = 99719-3) [facility] 01:30:55 Test Item Value Reference Range Interpretation Comments POCT GLU (test code = 120 mg/dL 70-110 H Notifi ed Provider [id number]) Lab Interpretation (test Abnormal code = 17874-7) [facility] GLUCOSE (AUTOMATED)2022-03-28 01:30:55 Test Item Value Reference Range Interpretation Comments POCT GLU (test code = 120 mg/dL 70-110 H Notifi ed Provider [id number]) Lab Interpretation (test Abnormal code = 67320-0) [facility] GLUCOSE (AUTOMATED)2022-03-27 20:44:54 Test Item Value Reference Range Interpretation Comments POCT GLU (test code = 5213014248) 211 mg/dL 70-110 H Lab Interpretation (test code = Abnormal 81988-4) [facility] GLUCOSE (AUTOMATED)2022-03-27 20:44:54 Test Item Value Reference Range Interpretation Comments POCT GLU (test code = 1990690092) 211 mg/dL 70-110 H Lab Interpretation (test code = Abnormal 36168-4) [facility] 20:44:54 Test Item Value Reference Range Interpretation Comments POCT GLU (test code = 0474103588) 211 mg/dL 70-110 H Lab Interpretation (test code = Abnormal 16261-4) [facility] GLUCOSE (AUTOMATED)2022-03-27 20:44:54 Test Item Value Reference Range Interpretation Comments POCT GLU (test code = 5794709256) 211 mg/dL 70-110 H Lab Interpretation (test code = Abnormal 91518-8) [facility] 17:36:50 Test Item Value Reference Range Interpretation Comments POCT GLU (test code = 2828151994) 251 mg/dL 70-110 H Lab Interpretation (test code = Abnormal 19154-3) [facility] 17:36:50 Test Item Value Reference Range Interpretation Comments POCT GLU (test code = 0387582881) 251 mg/dL 70-110 H Lab Interpretation (test code = Abnormal 94980-3) [facility] GLUCOSE (AUTOMATED)2022-03-27 17:36:50 Test Item Value Reference Range Interpretation Comments POCT GLU (test code = 8961380302) 251 mg/dL 70-110 H Lab Interpretation (test code = Abnormal 79786-8) [facility]:36:50 Test Item Value Reference Range Interpretation Comments POCT GLU (test code = 5709435454) 251 mg/dL 70-110 H Lab Interpretation (test code = Abnormal 61691-9) [facility] 12:36:13 Test Item Value Reference Range Interpretation Comments POCT GLU (test code = 3453216150) 230 mg/dL 70-110 H Lab Interpretation (test code = Abnormal 46011-0) [facility] GLUCOSE (AUTOMATED)2022-03-27 12:36:13 Test Item Value Reference Range Interpretation Comments POCT GLU (test code = 9989881550) 230 mg/dL 70-110 H Lab Interpretation (test code = Abnormal 94487-4) [facility] 12:36:13 Test Item Value Reference Range Interpretation Comments POCT GLU (test code = 6634308667) 230 mg/dL 70-110 H Lab Interpretation (test code = Abnormal 38933-7) [facility] GLUCOSE (AUTOMATED)2022-03-27 12:36:13 Test Item Value Reference Range Interpretation Comments POCT GLU (test code = 6424093401) 230 mg/dL 70-110 H Lab Interpretation (test code = Abnormal 37264-8) [facility] GLUCOSE (AUTOMATED)2022-03-27 09:18:37 Test Item Value Reference Range Interpretation Comments POCT GLU (test code = 2019058418) 256 mg/dL 70-110 H Lab Interpretation (test code = Abnormal 35539-1) [facility] 09:18:37 Test Item Value Reference Range Interpretation Comments POCT GLU (test code = 5369691957) 256 mg/dL 70-110 H Lab Interpretation (test code = Abnormal 52013-3) [facility] GLUCOSE (AUTOMATED)2022-03-27 09:18:37 Test Item Value Reference Range Interpretation Comments POCT GLU (test code = 9581652529) 256 mg/dL 70-110 H Lab Interpretation (test code = Abnormal 73794-6) [facility] GLUCOSE (AUTOMATED)2022-03-27 09:18:37 Test Item Value Reference Range Interpretation Comments POCT GLU (test code = 3658393962) 256 mg/dL 70-110 H Lab Interpretation (test code = Abnormal 45524-4) [facility] GLUCOSE (AUTOMATED)2022-03-27 05:12:31 Test Item Value Reference Range Interpretation Comments POCT GLU (test code = 2132557090) 219 mg/dL 70-110 H Lab Interpretation (test code = Abnormal 38295-6) [facility] GLUCOSE (AUTOMATED)2022-03-27 05:12:31 Test Item Value Reference Range Interpretation Comments POCT GLU (test code = 9099808696) 219 mg/dL 70-110 H Lab Interpretation (test code = Abnormal 77853-4) [facility] GLUCOSE (AUTOMATED)2022-03-27 05:12:31 Test Item Value Reference Range Interpretation Comments POCT GLU (test code = 8119329218) 219 mg/dL 70-110 H Lab Interpretation (test code = Abnormal 46609-5) [facility] GLUCOSE (AUTOMATED)2022-03-27 05:12:31 Test Item Value Reference Range Interpretation Comments POCT GLU (test code = 7304229295) 219 mg/dL 70-110 H Lab Interpretation (test code = Abnormal 61805-3) [facility] GLUCOSE (AUTOMATED)2022-03-27 01:06:19 Test Item Value Reference Range Interpretation Comments POCT GLU (test code = 7532640420) 119 mg/dL 70-110 H Lab Interpretation (test code = Abnormal 41381-1) [facility] GLUCOSE (AUTOMATED)2022-03-27 01:06:19 Test Item Value Reference Range Interpretation Comments POCT GLU (test code = 4207853070) 119 mg/dL 70-110 H Lab Interpretation (test code = Abnormal 78907-1) [facility] GLUCOSE (AUTOMATED)2022-03-27 01:06:19 Test Item Value Reference Range Interpretation Comments POCT GLU (test code = 7159844935) 119 mg/dL 70-110 H Lab Interpretation (test code = Abnormal 77740-3) [facility] 01:06:19 Test Item Value Reference Range Interpretation Comments POCT GLU (test code = 2125315555) 119 mg/dL 70-110 H Lab Interpretation (test code = Abnormal 60479-5) [facility] and Screen - ONCE [id number] 23:05:59 Test Item Value Reference Range Interpretation Comments ABO & RH (test code O POSITIVE Performe d at [facility] = 20) Laboratory [facility] Blood [address] [address]Bxmg Free: [phone] A No. [id number] IAT (test code = Negative Performed a t [facility] 1185) Laboratory [facility] Blood [address] [address]Fbrc Free: [phone] A No. [id number] [facility] and Screen - ONCE [id number] 23:05:59 Test Item Value Reference Range Interpretation Comments ABO & RH (test code O POSITIVE Performe d at [facility] = 20) Laboratory [facility] Blood [address] [address]Ahty Free: [phone] A No. [id number] IAT (test code = Negative Performed a t [facility] 1185) Laboratory [facility] Blood [address] [address]Xvlf Free: [phone] A No. [id number] [facility] and Screen - ONCE [id number] 23:05:59 Test Item Value Reference Range Interpretation Comments ABO & RH (test code O POSITIVE Performe d at [facility] = 20) Laboratory [facility] Blood [address] [address]Amrh Free: [phone] A No. [id number] IAT (test code = Negative Performed a t [facility] 1185) Laboratory [facility] Blood [address] [place] [address] s [address]Rayy Free: [phone] A No. [id number] [facility] and Screen - ONCE [id number] 23:05:59 Test Item Value Reference Range Interpretation Comments ABO & RH (test code O POSITIVE Performe d at [facility] = 20) Laboratory [facility] Blood [facility]3 [address] [facility] [address]Gufz Free: [phone] A No. [id number] IAT (test code = Negative Performed a t [facility] 1185) Laboratory [facility] Blood [facility] [address] [facility] [address]Euis Free: [phone] A No. [id number] [facility] and Screen - ONCE [id number] 23:05:59 Test Item Value Reference Range Interpretation Comments ABO & RH (test code O POSITIVE Performe d at [facility] = 20) Laboratory [facility] [address] [facility] s [address]Usrf Free: [phone] A No. [id number] IAT (test code = Negative Performed a t [facility] 1185) Laboratory [facility] Blood [facility]3 [address] [facility] s [address]Bhde Free: [phone] A No. [id number] [facility] GLUCOSE (AUTOMATED)2022-03-26 21:43:29 Test Item Value Reference Range Interpretation Comments POCT GLU (test code = 9648002127) 85 mg/dL 70-110 Lab Interpretation (test code = Normal 29242-6) [facility] GLUCOSE (AUTOMATED)2022-03-26 21:43:29 Test Item Value Reference Range Interpretation Comments POCT GLU (test code = 4499430591) 85 mg/dL 70-110 Lab Interpretation (test code = Normal 67591-4) [facility] GLUCOSE (AUTOMATED)2022-03-26 21:43:29 Test Item Value Reference Range Interpretation Comments POCT GLU (test code = 9224182670) 85 mg/dL 70-110 Lab Interpretation (test code = Normal 43234-4) [facility] GLUCOSE (AUTOMATED)2022-03-26 21:43:29 Test Item Value Reference Range Interpretation Comments POCT GLU (test code = 6387336930) 85 mg/dL 70-110 Lab Interpretation (test code = Normal 40873-3) [facility] GLUCOSE (AUTOMATED)2022-03-26 17:35:24 Test Item Value Reference Range Interpretation Comments POCT GLU (test code = 0479455374) 165 mg/dL 70-110 H Lab Interpretation (test code = Abnormal 88251-6) [facility] GLUCOSE (AUTOMATED)2022-03-26 17:35:24 Test Item Value Reference Range Interpretation Comments POCT GLU (test code = 0386459005) 165 mg/dL 70-110 H Lab Interpretation (test code = Abnormal 72547-0) [facility] GLUCOSE (AUTOMATED)2022-03-26 17:35:24 Test Item Value Reference Range Interpretation Comments POCT GLU (test code = 4125677051) 165 mg/dL 70-110 H Lab Interpretation (test code = Abnormal 67627-0) [facility] GLUCOSE (AUTOMATED)2022-03-26 17:35:24 Test Item Value Reference Range Interpretation Comments POCT GLU (test code = 6342313432) 165 mg/dL 70-110 H Lab Interpretation (test code = Abnormal 96674-4) [facility] GLUCOSE (AUTOMATED)2022-03-26 12:29:43 Test Item Value Reference Range Interpretation Comments POCT GLU (test code = 2572382002) 144 mg/dL 70-110 H Lab Interpretation (test code = Abnormal 96782-7) [facility] GLUCOSE (AUTOMATED)2022-03-26 12:29:43 Test Item Value Reference Range Interpretation Comments POCT GLU (test code = 1238106181) 144 mg/dL 70-110 H Lab Interpretation (test code = Abnormal 92867-7) [facility] GLUCOSE (AUTOMATED)2022-03-26 12:29:43 Test Item Value Reference Range Interpretation Comments POCT GLU (test code = 2214106041) 144 mg/dL 70-110 H Lab Interpretation (test code = Abnormal 27334-6) [facility] GLUCOSE (AUTOMATED)2022-03-26 12:29:43 Test Item Value Reference Range Interpretation Comments POCT GLU (test code = 2299774734) 144 mg/dL 70-110 H Lab Interpretation (test code = Abnormal 77335-1) [facility] GLUCOSE (AUTOMATED)2022-03-26 09:32:36 Test Item Value Reference Range Interpretation Comments POCT GLU (test code = 0411577901) 122 mg/dL 70-110 H Lab Interpretation (test code = Abnormal 20460-4) [facility] GLUCOSE (AUTOMATED)2022-03-26 09:32:36 Test Item Value Reference Range Interpretation Comments POCT GLU (test code = 0711860002) 122 mg/dL 70-110 H Lab Interpretation (test code = Abnormal 66507-0) [facility] GLUCOSE (AUTOMATED)2022-03-26 09:32:36 Test Item Value Reference Range Interpretation Comments POCT GLU (test code = 7409923688) 122 mg/dL 70-110 H Lab Interpretation (test code = Abnormal 32619-3) [facility] GLUCOSE (AUTOMATED)2022-03-26 09:32:36 Test Item Value Reference Range Interpretation Comments POCT GLU (test code = 0744888598) 122 mg/dL 70-110 H Lab Interpretation (test code = Abnormal 74812-9) [facility] GLUCOSE (AUTOMATED)2022-03-26 05:04:28 Test Item Value Reference Range Interpretation Comments POCT GLU (test code = 9180511016) 152 mg/dL 70-110 H Lab Interpretation (test code = Abnormal 68301-9) [facility] GLUCOSE (AUTOMATED)2022-03-26 05:04:28 Test Item Value Reference Range Interpretation Comments POCT GLU (test code = 2844009231) 152 mg/dL 70-110 H Lab Interpretation (test code = Abnormal 18687-1) [facility] GLUCOSE (AUTOMATED)2022-03-26 05:04:28 Test Item Value Reference Range Interpretation Comments POCT GLU (test code = 0610112341) 152 mg/dL 70-110 H Lab Interpretation (test code = Abnormal 91806-1) [facility] GLUCOSE (AUTOMATED)2022-03-26 05:04:28 Test Item Value Reference Range Interpretation Comments POCT GLU (test code = 8219940150) 152 mg/dL 70-110 H Lab Interpretation (test code = Abnormal 31647-6) [facility] GLUCOSE (AUTOMATED)2022-03-26 01:24:58 Test Item Value Reference Range Interpretation Comments POCT GLU (test code = 6789726859) 249 mg/dL 70-110 H Lab Interpretation (test code = Abnormal 52587-8) [facility] GLUCOSE (AUTOMATED)2022-03-26 01:24:58 Test Item Value Reference Range Interpretation Comments POCT GLU (test code = 7446662925) 249 mg/dL 70-110 H Lab Interpretation (test code = Abnormal 53333-1) [facility] GLUCOSE (AUTOMATED)2022-03-26 01:24:58 Test Item Value Reference Range Interpretation Comments POCT GLU (test code = 3352047056) 249 mg/dL 70-110 H Lab Interpretation (test code = Abnormal 20368-4) [facility] GLUCOSE (AUTOMATED)2022-03-26 01:24:58 Test Item Value Reference Range Interpretation Comments POCT GLU (test code = 4994322770) 249 mg/dL 70-110 H Lab Interpretation (test code = Abnormal 75017-7) [facility] GLUCOSE (AUTOMATED)2022-03-25 21:13:04 Test Item Value Reference Range Interpretation Comments POCT GLU (test code = 3909298867) 155 mg/dL 70-110 H Lab Interpretation (test code = Abnormal 72488-2) [facility] GLUCOSE (AUTOMATED)2022-03-25 21:13:04 Test Item Value Reference Range Interpretation Comments POCT GLU (test code = 9722051702) 155 mg/dL 70-110 H Lab Interpretation (test code = Abnormal 77033-4) [facility] GLUCOSE (AUTOMATED)2022-03-25 21:13:04 Test Item Value Reference Range Interpretation Comments POCT GLU (test code = 7597007736) 155 mg/dL 70-110 H Lab Interpretation (test code = Abnormal 35260-9) [facility] GLUCOSE (AUTOMATED)2022-03-25 21:13:04 Test Item Value Reference Range Interpretation Comments POCT GLU (test code = 7142135218) 155 mg/dL 70-110 H Lab Interpretation (test code = Abnormal 25347-4) [facility] GLUCOSE (AUTOMATED)2022-03-25 18:05:28 Test Item Value Reference Range Interpretation Comments POCT GLU (test code = 9642509448) 182 mg/dL 70-110 H Lab Interpretation (test code = Abnormal 94279-1) [facility] GLUCOSE (AUTOMATED)2022-03-25 18:05:28 Test Item Value Reference Range Interpretation Comments POCT GLU (test code = 4133218182) 182 mg/dL 70-110 H Lab Interpretation (test code = Abnormal 00606-9) [facility] GLUCOSE (AUTOMATED)2022-03-25 18:05:28 Test Item Value Reference Range Interpretation Comments POCT GLU (test code = 7072702201) 182 mg/dL 70-110 H Lab Interpretation (test code = Abnormal 25989-9) [facility] GLUCOSE (AUTOMATED)2022-03-25 18:05:28 Test Item Value Reference Range Interpretation Comments POCT GLU (test code = 5733272550) 182 mg/dL 70-110 H Lab Interpretation (test code = Abnormal 72351-5) [facility] GLUCOSE (AUTOMATED)2022-03-25 14:27:58 Test Item Value Reference Range Interpretation Comments POCT GLU (test code = 191 mg/dL 70-110 H Notifi ed Provider [id number]) Lab Interpretation (test Abnormal code = 44144-9) [facility] GLUCOSE (AUTOMATED)2022-03-25 14:27:58 Test Item Value Reference Range Interpretation Comments POCT GLU (test code = 191 mg/dL 70-110 H Notifi ed Provider [id number]) Lab Interpretation (test Abnormal code = 64197-4) [facility] GLUCOSE (AUTOMATED)2022-03-25 14:27:58 Test Item Value Reference Range Interpretation Comments POCT GLU (test code = 191 mg/dL 70-110 H Notifi ed Provider [id number]) Lab Interpretation (test Abnormal code = 73829-9) [facility] GLUCOSE (AUTOMATED)2022-03-25 14:27:58 Test Item Value Reference Range Interpretation Comments POCT GLU (test code = 191 mg/dL 70-110 H Notifi ed Provider [id number]) Lab Interpretation (test Abnormal code = 97219-6) [facility] GLUCOSE (AUTOMATED)2022-03-25 09:04:51 Test Item Value Reference Range Interpretation Comments POCT GLU (test code = 9925994073) 157 mg/dL 70-110 H Lab Interpretation (test code = Abnormal 72106-1) [facility] 09:04:51 Test Item Value Reference Range Interpretation Comments POCT GLU (test code = 1623790552) 157 mg/dL 70-110 H Lab Interpretation (test code = Abnormal 21426-5) [facility] 09:04:51 Test Item Value Reference Range Interpretation Comments POCT GLU (test code = 6638394092) 157 mg/dL 70-110 H Lab Interpretation (test code = Abnormal 78556-1) [facility] GLUCOSE (AUTOMATED)2022-03-25 09:04:51 Test Item Value Reference Range Interpretation Comments POCT GLU (test code = 1173079009) 157 mg/dL 70-110 H Lab Interpretation (test code = Abnormal 06299-3[facility]:17[facility]28 Test Item Value Reference Range Interpretation Comments POCT GLU (test code = 3056539316) 179 mg/dL 70-110 H Lab Interpretation (test code = Abnormal 53030-5) [facility] 04:17:28 Test Item Value Reference Range Interpretation Comments POCT GLU (test code = 5107477351) 179 mg/dL 70-110 H Lab Interpretation (test code = Abnormal 46565-2) [facility] 04:17:28 Test Item Value Reference Range Interpretation Comments POCT GLU (test code = 8488143031) 179 mg/dL 70-110 H Lab Interpretation (test code = Abnormal 32111-6) [facility] 04:17:28 Test Item Value Reference Range Interpretation Comments POCT GLU (test code = 4258139116) 179 mg/dL 70-110 H Lab Interpretation (test code = Abnormal 03596-2) [facility] GLUCOSE (AUTOMATED)2022-03-25 01:34:30 Test Item Value Reference Range Interpretation Comments POCT GLU (test code = 0721124742) 227 mg/dL 70-110 H Lab Interpretation (test code = Abnormal 51399-5) [facility] GLUCOSE (AUTOMATED)2022-03-25 01:34:30 Test Item Value Reference Range Interpretation Comments POCT GLU (test code = 6342800385) 227 mg/dL 70-110 H Lab Interpretation (test code = Abnormal 79058-5) [facility] GLUCOSE (AUTOMATED)2022-03-25 01:34:30 Test Item Value Reference Range Interpretation Comments POCT GLU (test code = 1835457149) 227 mg/dL 70-110 H Lab Interpretation (test code = Abnormal 11806-6) [facility] GLUCOSE (AUTOMATED)2022-03-25 01:34:30 Test Item Value Reference Range Interpretation Comments POCT GLU (test code = 6351897051) 227 mg/dL 70-110 H Lab Interpretation (test code = Abnormal 21618-7) [facility] GLUCOSE (AUTOMATED)2022-03-25 01:34:25 Test Item Value Reference Range Interpretation Comments POCT GLU (test code = 5838528737) 174 mg/dL 70-110 H Lab Interpretation (test code = Abnormal 66387-7) [facility] GLUCOSE (AUTOMATED)2022-03-25 01:34:25 Test Item Value Reference Range Interpretation Comments POCT GLU (test code = 6403559461) 174 mg/dL 70-110 H Lab Interpretation (test code = Abnormal 59374-0) [facility] GLUCOSE (AUTOMATED)2022-03-25 01:34:25 Test Item Value Reference Range Interpretation Comments POCT GLU (test code = 9004897475) 174 mg/dL 70-110 H Lab Interpretation (test code = Abnormal 65995-2) [facility] GLUCOSE (AUTOMATED)2022-03-25 01:34:25 Test Item Value Reference Range Interpretation Comments POCT GLU (test code = 2744717578) 174 mg/dL 70-110 H Lab Interpretation (test code = Abnormal 77209-7) [facility] GLUCOSE (AUTOMATED)2022-03-24 23:02:31 Test Item Value Reference Range Interpretation Comments POCT GLU (test code = 9959861979) 112 mg/dL 70-110 H Lab Interpretation (test code = Abnormal 50384-5) [facility] GLUCOSE (AUTOMATED)2022-03-24 23:02:31 Test Item Value Reference Range Interpretation Comments POCT GLU (test code = 9839893473) 112 mg/dL 70-110 H Lab Interpretation (test code = Abnormal 73711-0) [facility] GLUCOSE (AUTOMATED)2022-03-24 23:02:31 Test Item Value Reference Range Interpretation Comments POCT GLU (test code = 8124547546) 112 mg/dL 70-110 H Lab Interpretation (test code = Abnormal 39835-8) [facility] GLUCOSE (AUTOMATED)2022-03-24 23:02:31 Test Item Value Reference Range Interpretation Comments POCT GLU (test code = 1371788600) 112 mg/dL 70-110 H Lab Interpretation (test code = Abnormal 72244-3) [facility] GLUCOSE (AUTOMATED)2022-03-24 22:01:20 Test Item Value Reference Range Interpretation Comments POCT GLU (test code = 3686461192) 67 mg/dL 70-110 L Lab Interpretation (test code = Abnormal 11175-8) [facility] GLUCOSE (AUTOMATED)2022-03-24 22:01:20 Test Item Value Reference Range Interpretation Comments POCT GLU (test code = 9953388361) 67 mg/dL 70-110 L Lab Interpretation (test code = Abnormal 85565-3) [facility] GLUCOSE (AUTOMATED)2022-03-24 22:01:20 Test Item Value Reference Range Interpretation Comments POCT GLU (test code = 8028825037) 67 mg/dL 70-110 L Lab Interpretation (test code = Abnormal 51573-6) [facility] GLUCOSE (AUTOMATED)2022-03-24 22:01:20 Test Item Value Reference Range Interpretation Comments POCT GLU (test code = 4473596566) 67 mg/dL 70-110 L Lab Interpretation (test code = Abnormal 85359-5) [facility] 21:29:38 Test Item Value Reference Range Interpretation Comments Height (test code = in 0676999137) Weight (test code = lbs 4433185403) Systolic BP (test code = mmHg 8068960416) Diastolic BP (test code mmHg = 7550735810) Heart Rate (test code = bpm 1004679553) BSA (test code = 1.56 m2 5064060262) LVOT diameter (test code 2.11 cm = 7077410290) LVOT area (test code = 3.50 cm2 9582889225) Ao root diam (test code 3.20 cm = 7238349998) Aortic root (test code = 3.2 cm 4306135602) Ao root annulus (test 3.2 cm code = 4380686016) LA size (test code = 2.8 cm 0191176437) MV Peak E Sweetie (test code 65.6 cm/s = 8812371134) MV Peak A Sweetie (test code 68.1 cm/s = 2532091938) E/A ratio (test code = ratio 8725850209) E wave decelartion time 0.13 s (test code = 2153633258) MR max PG (test code = 39.00 mm[Hg] 2477506236) MR max sweetie (test code = 312.40 cm/s 7830277409) Mr max sweetie (test code = 312.4 m/s 5424379329) MV Prop V (test code = 23.50 cm/s 7244684301) LAV(MOD-sp4) (test code 34.40 mL = 6162986412) Tapse (test code = 0.91 cm 7937486778) LVOT stroke volume (test 41.30 cm3 code = 7859699849) LVOT peak sweetie (test code 63.8 cm/s = 7559247741) LVOT mn grad (test code mmHg = 2159797289) AV LVOT peak gradient mmHg (test code = 4035659128) LVOT peak VTI (test code 11.8 cm = 7694057950) LV V1 mean (test code = 41.80 cm/s 5924187878) Ao peak sweetie (test code = 123.8 cm/s 0392866095) AV area peak sweetie (test 1.8 cm2 code = 3666793780) Ao max PG (test code = 6.10 mm[Hg] 0257283850) AV peak gradient (test mmHg code = 9193634143) LA Volume Index (BP) 20.7 mL/m2 (test code = 6673473178) LA volume (BP) (test 32.3 mL code = 5061285631) LAV(MOD-sp2) (test code 23.20 mL = 2654545570) LVIDD (test code = 4.90 cm 7035366382) Left Ventricular End 113.2 mL Diastolic Volume by Teichholz Method (test code = 6122853) IVS (test code = 0.91 cm 2942922660) Interventricular Septum 0.91 cm Diastolic Thickness by 2D (test code = 2130972) LVPWD (test code = 0.85 cm 0834708801) PW (test code = 0.85 cm 0.6-1.0 4366271454) EF(Teich) (test code = 44.80 % 9617287866) LVIDS (test code = 3.80 cm 8336007888) Left Ventricular End 62.5 mL Systolic Volume by Teichholz Method (test code = 2141368) FS (test code = 22 % 7552867208) EF - 2D (test code = 44.80 % 46515139) A4C EF (test code = 44.60 % 3281265945) EF(sp4-el) (test code = 44.90 % 8772758509) SV(MOD-sp4) (test code = 39.30 mL 5315307405) SV(sp4-el) (test code = 40.20 mL 7349896162) LV Diastolic Volume (BP) 81.7 mL (test code = 7768808412) A2C EF (test code = 30.20 % 3220485851) EF(MOD-bp) (test code = 35.70 % 5962767270) EF(sp2-el) (test code = 28.70 % 7235394902) LV Systolic Volume (BP) 52.6 mL (test code = 6327609838) SV(MOD-bp) (test code = 29.10 mL 5820004028) SV(MOD-sp2) (test code = 23.00 mL 9704561046) EF (test code = 5771547587) Left Ventricular Stroke 29.1 mL Volume by 2-D Biplane-MOD (test code = 4942905) LV Diastolic Volume 52.4 mL/m2 Index (BP) (test code = 4224953251) LV Systolic Volume Index 33.7 mL/m2 (BP) (test code = 8071327689) Radiology Study observation (narrative) (test code = 16332-1) ADD (test code = ADD) Addendum by [...] mL of Lumason ultrasound enhancing agent used. [facility] 21:29:38 Test Item Value Reference Range Interpretation Comments Height (test code = in 9330162413) Weight (test code = lbs 4084295821) Systolic BP (test code = mmHg 4034092397) Diastolic BP (test code mmHg = 0046029812) Heart Rate (test code = bpm 8349060662) BSA (test code = 1.56 m2 7918182299) LVOT diameter (test code 2.11 cm = 4388588296) LVOT area (test code = 3.50 cm2 4541149700) Ao root diam (test code 3.20 cm = 4408549958) Aortic root (test code = 3.2 cm 6178731601) Ao root annulus (test 3.2 cm code = 8241736920) LA size (test code = 2.8 cm 0555221167) MV Peak E Sweetie (test code 65.6 cm/s = 8708518670) MV Peak A Sweetie (test code 68.1 cm/s = 5966922814) E/A ratio (test code = ratio 4460588877) E wave decelartion time 0.13 s (test code = 8704148842) MR max PG (test code = 39.00 mm[Hg] 4624923527) MR max sweetie (test code = 312.40 cm/s 2407530360) Mr max sweetie (test code = 312.4 m/s 9481935309) MV Prop V (test code = 23.50 cm/s 7956329124) LAV(MOD-sp4) (test code 34.40 mL = 6549307129) Tapse (test code = 0.91 cm 8248777510) LVOT stroke volume (test 41.30 cm3 code = 5528601142) LVOT peak sweetie (test code 63.8 cm/s = 2980275988) LVOT mn grad (test code mmHg = 8152813069) AV LVOT peak gradient mmHg (test code = 1489473625) LVOT peak VTI (test code 11.8 cm = 2608197510) LV V1 mean (test code = 41.80 cm/s 0590578374) Ao peak sweetie (test code = 123.8 cm/s 4340804238) AV area peak sweetie (test 1.8 cm2 code = 8628609562) Ao max PG (test code = 6.10 mm[Hg] 7009470832) AV peak gradient (test mmHg code = 6516825751) LA Volume Index (BP) 20.7 mL/m2 (test code = 4145370934) LA volume (BP) (test 32.3 mL code = 5034899015) LAV(MOD-sp2) (test code 23.20 mL = 3957103373) LVIDD (test code = 4.90 cm 4803526450) Left Ventricular End 113.2 mL Diastolic Volume by Teichholz Method (test code = 4722942) IVS (test code = 0.91 cm 2318484600) Interventricular Septum 0.91 cm Diastolic Thickness by 2D (test code = 7298316) LVPWD (test code = 0.85 cm 9276784416) PW (test code = 0.85 cm 0.6-1.1 8022834482) EF(Teich) (test code = 44.80 % 4352080943) LVIDS (test code = 3.80 cm 1335777079) Left Ventricular End 62.5 mL Systolic Volume by Teichholz Method (test code = 2826703) FS (test code = 22 % 4923129256) EF - 2D (test code = 44.80 % 78611162) A4C EF (test code = 44.60 % 9402476249) EF(sp4-el) (test code = 44.90 % 9938084503) SV(MOD-sp4) (test code = 39.30 mL 1273647136) SV(sp4-el) (test code = 40.20 mL 0795630803) LV Diastolic Volume (BP) 81.7 mL (test code = 7321114997) A2C EF (test code = 30.20 % 4973624786) EF(MOD-bp) (test code = 35.70 % 9246054437) EF(sp2-el) (test code = 28.70 % 9653392319) LV Systolic Volume (BP) 52.6 mL (test code = 7045391169) SV(MOD-bp) (test code = 29.10 mL 3078365874) SV(MOD-sp2) (test code = 23.00 mL 4165396241) EF (test code = 8130960794) Left Ventricular Stroke 29.1 mL Volume by 2-D Biplane-MOD (test code = 5337042) LV Diastolic Volume 52.4 mL/m2 Index (BP) (test code = 4500666035) LV Systolic Volume Index 33.7 mL/m2 (BP) (test code = 2752151837) Radiology Study observation (narrative) (test code = 37510-3) ADD (test code = ADD) Addendum by [...] mL of Lumason ultrasound enhancing agent [facility]. [facility] 21:29:38 Test Item Value Reference Range Interpretation Comments Height (test code = in 0824285540) Weight (test code = lbs 0872440117) Systolic BP (test code = mmHg 6699381300) Diastolic BP (test code mmHg = 7737378051) Heart Rate (test code = bpm 8253015215) BSA (test code = 1.56 m2 9849020416) LVOT diameter (test code 2.11 cm = 2661392484) LVOT area (test code = 3.50 cm2 6472642748) Ao root diam (test code 3.20 cm = 4226385886) Aortic root (test code = 3.2 cm 7863121935) Ao root annulus (test 3.2 cm code = 3403698494) LA size (test code = 2.8 cm 0907306699) MV Peak E Sweetie (test code 65.6 cm/s = 4601354828) MV Peak A Sweetie (test code 68.1 cm/s = 5712805720) E/A ratio (test code = ratio 7837361265) E wave decelartion time 0.13 s (test code = 6330652056) MR max PG (test code = 39.00 mm[Hg] 4441213565) MR max sweetie (test code = 312.40 cm/s 0440121177) Mr max sweetie (test code = 312.4 m/s 6862103896) MV Prop V (test code = 23.50 cm/s 7638944453) LAV(MOD-sp4) (test code 34.40 mL = 8850316031) Tapse (test code = 0.91 cm 1235896266) LVOT stroke volume (test 41.30 cm3 code = 7341344901) LVOT peak sweetie (test code 63.8 cm/s = 0293976900) LVOT mn grad (test code mmHg = 6476955618) AV LVOT peak gradient mmHg (test code = 8088118960) LVOT peak VTI (test code 11.8 cm = 1166207353) LV V1 mean (test code = 41.80 cm/s 5383780818) Ao peak sweetie (test code = 123.8 cm/s 3527711930) AV area peak sweetie (test 1.8 cm2 code = 8465754823) Ao max PG (test code = 6.10 mm[Hg] 0086857510) AV peak gradient (test mmHg code = 0021386131) LA Volume Index (BP) 20.7 mL/m2 (test code = 2196917131) LA volume (BP) (test 32.3 mL code = 4741048955) LAV(MOD-sp2) (test code 23.20 mL = 1725805201) LVIDD (test code = 4.90 cm 3460668366) Left Ventricular End 113.2 mL Diastolic Volume by Teichholz Method (test code = 2617683) IVS (test code = 0.91 cm 7100796484) Interventricular Septum 0.91 cm Diastolic Thickness by 2D (test code = 3293466) LVPWD (test code = 0.85 cm 7619179284) PW (test code = 0.85 cm 0.6-1.5 8902797509) EF(Teich) (test code = 44.80 % 2034599985) LVIDS (test code = 3.80 cm 9868165389) Left Ventricular End 62.5 mL Systolic Volume by Teichholz Method (test code = 3400095) FS (test code = 22 % 7952055685) EF - 2D (test code = 44.80 % 32774728) A4C EF (test code = 44.60 % 9680663558) EF(sp4-el) (test code = 44.90 % 1447246421) SV(MOD-sp4) (test code = 39.30 mL 6875060987) SV(sp4-el) (test code = 40.20 mL 0755711810) LV Diastolic Volume (BP) 81.7 mL (test code = 9472853601) A2C EF (test code = 30.20 % 0419753620) EF(MOD-bp) (test code = 35.70 % 1308319467) EF(sp2-el) (test code = 28.70 % 1848639686) LV Systolic Volume (BP) 52.6 mL (test code = 9225493749) SV(MOD-bp) (test code = 29.10 mL 0316823365) SV(MOD-sp2) (test code = 23.00 mL 1281897053) EF (test code = 7697162388) Left Ventricular Stroke 29.1 mL Volume by 2-D Biplane-MOD (test code = 6666389) LV Diastolic Volume 52.4 mL/m2 Index (BP) (test code = 1219495161) LV Systolic Volume Index 33.7 mL/m2 (BP) (test code = 0348753761) Radiology Study observation (narrative) (test code = 87765-7) ADD (test code = ADD) Addendum by [...] mL of Lumason ultrasound enhancing agent used. [facility] 21:29:38 Test Item Value Reference Range Interpretation Comments Height (test code = in 9336119379) Weight (test code = lbs 7819320466) Systolic BP (test code = mmHg 4610776607) Diastolic BP (test code mmHg = 1672854620) Heart Rate (test code = bpm 7703012634) BSA (test code = 1.56 m2 4462244050) LVOT diameter (test code 2.11 cm = 5653743806) LVOT area (test code = 3.50 cm2 3625862346) Ao root diam (test code 3.20 cm = 4672729388) Aortic root (test code = 3.2 cm 7384638379) Ao root annulus (test 3.2 cm code = 3617520528) LA size (test code = 2.8 cm 5995171336) MV Peak E Sweetie (test code 65.6 cm/s = 4057589984) MV Peak A Sweetie (test code 68.1 cm/s = 7785280153) E/A ratio (test code = ratio 2770264605) E wave decelartion time 0.13 s (test code = 6328342508) MR max PG (test code = 39.00 mm[Hg] 7231825631) MR max sweetie (test code = 312.40 cm/s 2920908457) Mr max sweetie (test code = 312.4 m/s 5862472373) MV Prop V (test code = 23.50 cm/s 3770272664) LAV(MOD-sp4) (test code 34.40 mL = 9668176299) Tapse (test code = 0.91 cm 9019968572) LVOT stroke volume (test 41.30 cm3 code = 0820899739) LVOT peak sweetie (test code 63.8 cm/s = 8562571329) LVOT mn grad (test code mmHg = 1300451703) AV LVOT peak gradient mmHg (test code = 9949111300) LVOT peak VTI (test code 11.8 cm = 3635392755) LV V1 mean (test code = 41.80 cm/s 2204891787) Ao peak sweetie (test code = 123.8 cm/s 8658347837) AV area peak sweetie (test 1.8 cm2 code = 7225182950) Ao max PG (test code = 6.10 mm[Hg] 2648142920) AV peak gradient (test mmHg code = 2377225571) LA Volume Index (BP) 20.7 mL/m2 (test code = 9326123354) LA volume (BP) (test 32.3 mL code = 1064139005) LAV(MOD-sp2) (test code 23.20 mL = 8979846899) LVIDD (test code = 4.90 cm 4755427976) Left Ventricular End 113.2 mL Diastolic Volume by Teichholz Method (test code = 0225202) IVS (test code = 0.91 cm 8576978658) Interventricular Septum 0.91 cm Diastolic Thickness by 2D (test code = 0327085) LVPWD (test code = 0.85 cm 6893186377) PW (test code = 0.85 cm 0.6-1.4 3630168230) EF(Teich) (test code = 44.80 % 9050515342) LVIDS (test code = 3.80 cm 8982795221) Left Ventricular End 62.5 mL Systolic Volume by Teichholz Method (test code = 7128014) FS (test code = 22 % 5968084567) EF - 2D (test code = 44.80 % 97829134) A4C EF (test code = 44.60 % 7461506223) EF(sp4-el) (test code = 44.90 % 4161943696) SV(MOD-sp4) (test code = 39.30 mL 4515708535) SV(sp4-el) (test code = 40.20 mL 2921282087) LV Diastolic Volume (BP) 81.7 mL (test code = 1777198203) A2C EF (test code = 30.20 % 9227713284) EF(MOD-bp) (test code = 35.70 % 4666426617) EF(sp2-el) (test code = 28.70 % 3047797911) LV Systolic Volume (BP) 52.6 mL (test code = 4389753778) SV(MOD-bp) (test code = 29.10 mL 1477592557) SV(MOD-sp2) (test code = 23.00 mL 1546249860) EF (test code = 9871749097) Left Ventricular Stroke 29.1 mL Volume by 2-D Biplane-MOD (test code = 6150973) LV Diastolic Volume 52.4 mL/m2 Index (BP) (test code = 4817783424) LV Systolic Volume Index 33.7 mL/m2 (BP) (test code = 8751283030) Radiology Study observation (narrative) (test code = 37427-9) ADD (test code = ADD) Addendum by [...] mL of Lumason ultrasound enhancing agent used. [facility] GLUCOSE (AUTOMATED)2022-03-24 17:10:50 Test Item Value Reference Range Interpretation Comments POCT GLU (test code = 6240269165) 254 mg/dL 70-110 H Lab Interpretation (test code = Abnormal 65088-5) [facility] GLUCOSE (AUTOMATED)2022-03-24 17:10:50 Test Item Value Reference Range Interpretation Comments POCT GLU (test code = 4667216891) 254 mg/dL 70-110 H Lab Interpretation (test code = Abnormal 49478-7) [facility] GLUCOSE (AUTOMATED)2022-03-24 17:10:50 Test Item Value Reference Range Interpretation Comments POCT GLU (test code = 0368929852) 254 mg/dL 70-110 H Lab Interpretation (test code = Abnormal 89133-6) [facility] GLUCOSE (AUTOMATED)2022-03-24 17:10:50 Test Item Value Reference Range Interpretation Comments POCT GLU (test code = 0505248285) 254 mg/dL 70-110 H Lab Interpretation (test code = Abnormal 64616-4) [facility] GLUCOSE (AUTOMATED)2022-03-24 13:01:44 Test Item Value Reference Range Interpretation Comments POCT GLU (test code = 7094180352) 251 mg/dL 70-110 H Lab Interpretation (test code = Abnormal 56099-6) [facility] GLUCOSE (AUTOMATED)2022-03-24 13:01:44 Test Item Value Reference Range Interpretation Comments POCT GLU (test code = 0652045895) 251 mg/dL 70-110 H Lab Interpretation (test code = Abnormal 63624-1) [facility] GLUCOSE (AUTOMATED)2022-03-24 13:01:44 Test Item Value Reference Range Interpretation Comments POCT GLU (test code = 9865042317) 251 mg/dL 70-110 H Lab Interpretation (test code = Abnormal 86515-9) [facility] GLUCOSE (AUTOMATED)2022-03-24 13:01:44 Test Item Value Reference Range Interpretation Comments POCT GLU (test code = 5213845265) 251 mg/dL 70-110 H Lab Interpretation (test code = Abnormal 42868-2) [facility] METABOLIC PANEL (NA, K, CL, CO2, GLUCOSE, BUN, CREATININE, CA)2022-03-24 11:58:48 Test Item Value Reference Range Interpretation Comments NA (test code = 135 mmol/L 135-145 7510891798) K (test code = 4.5 mmol/L 3.5-5.0 9844403777) CL (test code = 105 mmol/L 98-108 3531350211) CO2 TOTAL (test code = 25 mmol/L 23-31 1102127537) AGAP (test code = 2-16 3704739050) BUN (test code = 19 mg/dL 7-23 6100198993) GLUCOSE (test code = 208 mg/dL 70-110 H 5210886646) CREATININE (test code = 0.81 mg/dL 0.50-1.04 4042894350) CALCIUM (test code = 8.0 mg/dL 8.6-10.6 L 7372713606) eGFR (test code = mL/min/1.73m2 9370701010) NISHA (test code = NISHA) Association of [...] tests). Lab Interpretation Abnormal (test code = 29586-0) [facility] Test Item Value Reference Range Interpretation Comments MAGNESIUM (test code = 5405268323) 1.7 mg/dL 1.7-2.4 Lab Interpretation (test code = Normal 31329-6) [facility] 11:58:48 Test Item Value Reference Range Interpretation Comments PHOSPHORUS (test code = 0096158433) 3.6 mg/dL 2.5-5.0 Lab Interpretation (test code = Normal 41028-7) [facility] (NA, K, CL, CO2, GLUCOSE, BUN, CREATININE, CA)2022-03-24 11:58:48 Test Item Value Reference Range Interpretation Comments NA (test code = 135 mmol/L 135-145 9786549037) K (test code = 4.5 mmol/L 3.5-5.0 0662457708) CL (test code = 105 mmol/L 98-108 9622501218) CO2 TOTAL (test code = 25 mmol/L 23-31 3219784571) AGAP (test code = 2-16 7163211017) BUN (test code = 19 mg/dL 7-23 8458173446) GLUCOSE (test code = 208 mg/dL 70-110 H 5635098333) CREATININE (test code = 0.81 mg/dL 0.50-1.04 3707517115) CALCIUM (test code = 8.0 mg/dL 8.6-10.6 L 0765054775) eGFR (test code = mL/min/1.73m2 1630790995) NISHA (test code = NISHA) Association of [...] tests). Lab Interpretation Abnormal (test code = 52324-3) [facility] Test Item Value Reference Range Interpretation Comments MAGNESIUM (test code = 4719513932) 1.7 mg/dL 1.7-2.4 Lab Interpretation (test code = Normal 71237-2) [facility] 11:58:48 Test Item Value Reference Range Interpretation Comments PHOSPHORUS (test code = 2783597280) 3.6 mg/dL 2.5-5.0 Lab Interpretation (test code = Normal 01563-6) [facility] (NA, K, CL, CO2, GLUCOSE, BUN, CREATININE, CA)2022-03-24 11:58:48 Test Item Value Reference Range Interpretation Comments NA (test code = 135 mmol/L 135-145 5321172717) K (test code = 4.5 mmol/L 3.5-5.0 6421064205) CL (test code = 105 mmol/L 98-108 0171338324) CO2 TOTAL (test code = 25 mmol/L 23-31 0417345967) AGAP (test code = 2-16 5339465580) BUN (test code = 19 mg/dL 7-23 3180256521) GLUCOSE (test code = 208 mg/dL 70-110 H 8222478842) CREATININE (test code = 0.81 mg/dL 0.50-1.04 8500678592) CALCIUM (test code = 8.0 mg/dL 8.6-10.6 L 0147167657) eGFR (test code = mL/min/1.73m2 8829944391) NISHA (test code = NISHA) Association of [...] tests). Lab Interpretation Abnormal (test code = 66927-0) [facility] 11:58:48 Test Item Value Reference Range Interpretation Comments MAGNESIUM (test code = 9728564552) 1.7 mg/dL 1.7-2.4 Lab Interpretation (test code = Normal 42512-0) [facility] 11:58:48 Test Item Value Reference Range Interpretation Comments PHOSPHORUS (test code = 3043392141) 3.6 mg/dL 2.5-5.0 Lab Interpretation (test code = Normal 08189-6) [facility] (NA, K, CL, CO2, GLUCOSE, BUN, CREATININE, CA)2022-03-24 11:58:48 Test Item Value Reference Range Interpretation Comments NA (test code = 135 mmol/L 135-145 2154140080) K (test code = 4.5 mmol/L 3.5-5.0 0718372056) CL (test code = 105 mmol/L 98-108 0215135846) CO2 TOTAL (test code = 25 mmol/L 23-31 3065813253) AGAP (test code = 2-16 4891232557) BUN (test code = 19 mg/dL 7-23 7595077718) GLUCOSE (test code = 208 mg/dL 70-110 H 5612399303) CREATININE (test code = 0.81 mg/dL 0.50-1.04 1934452411) CALCIUM (test code = 8.0 mg/dL 8.6-10.6 L 3734867890) eGFR (test code = mL/min/1.73m2 4218226841) NISHA (test code = NISHA) Association of [...] tests). Lab Interpretation Abnormal (test code = 28392-4) [facility] 11:58:48 Test Item Value Reference Range Interpretation Comments MAGNESIUM (test code = 3791385970) 1.7 mg/dL 1.7-2.4 Lab Interpretation (test code = Normal 85107-9) [facility] 11:58:48 Test Item Value Reference Range Interpretation Comments PHOSPHORUS (test code = 4355359847) 3.6 mg/dL 2.5-5.0 Lab Interpretation (test code = Normal 03133-1) [facility] [id number] 07:01:02 Test Item Value Reference Range Interpretation Comments Blood Culture-Aerobic No organisms No growth Previo us (test code = 10939-9) isolated prelim inary verified result was Culture [...] Culture-Anaerobic isolated preliminar y (test code = 24990-4) verifi ed result was Culture In Progress [...] CDT Lab Interpretation Normal (test code = 44476-4) [facility] [id number] 07:01:02 Test Item Value Reference Range Interpretation Comments Blood Culture-Aerobic No organisms No growth Previo us (test code = 38279-7) isolated prelim inary verified result was Culture [...] Culture-Anaerobic isolated preliminar y (test code = 74646-1) verifi ed result was Culture In Progress [...] CDT Lab Interpretation Normal (test code = 69684-5) [facility] CULTURE [id number] 07:01:02 Test Item Value Reference Range Interpretation Comments Blood Culture-Aerobic No organisms No growth Previo us (test code = 32425-5) isolated prelim inary verified result was Culture [...] Culture-Anaerobic isolated preliminar y (test code = 19146-2) verifi ed result was Culture In Progress [...] CDT Lab Interpretation Normal (test code = 45380-6) [facility] CULTURE [id number] 07:01:02 Test Item Value Reference Range Interpretation Comments Blood Culture-Aerobic No organisms No growth Previo us (test code = 84649-3) isolated prelim inary verified result was Culture [...] Culture-Anaerobic isolated preliminar y (test code = 29133-5) verifi ed result was Culture In Progress [...] CDT Lab Interpretation Normal (test code = 44274-0) [facility] CULTURE [id number] 07:01:02 Test Item Value Reference Range Interpretation Comments Blood Culture-Aerobic No organisms No growth Previo us (test code = 28475-8) isolated prelim inary verified result was Culture [...] Culture-Anaerobic isolated preliminar y (test code = 72279-0) verifi ed result was Culture In Progress [...] CDT Lab Interpretation Normal (test code = 59881-5) [facility] CULTURE [id number] 07:01:02 Test Item Value Reference Range Interpretation Comments Blood Culture-Aerobic No organisms No growth Previo us (test code = 11718-9) isolated prelim inary verified result was Culture [...] Culture-Anaerobic isolated preliminar y (test code = 73592-6) verifi ed result was Culture In Progress [...] CDT Lab Interpretation Normal (test code = 73770-0) [facility] CULTURE [id number] 07:01:02 Test Item Value Reference Range Interpretation Comments Blood Culture-Aerobic No organisms No growth Previo us (test code = 01948-9) isolated prelim inary verified result was Culture [...] Culture-Anaerobic isolated preliminar y (test code = 66323-4) verifi ed result was Culture In Progress [...] CDT Lab Interpretation Normal (test code = 24075-5) [facility] CULTURE [id number] 07:01:02 Test Item Value Reference Range Interpretation Comments Blood Culture-Aerobic No organisms No growth Previo us (test code = 36843-1) isolated prelim inary verified result was Culture [...] Culture-Anaerobic isolated preliminar y (test code = 50811-5) verifi ed result was Culture In Progress [...] CDT Lab Interpretation Normal (test code = 24530-0) [facility] CULTURE [id number] 07:01:02 Test Item Value Reference Range Interpretation Comments Blood Culture-Aerobic No organisms No growth Previo us (test code = 23705-2) isolated prelim inary verified result was Culture [...] Culture-Anaerobic isolated preliminar y (test code = 72239-5) verifi ed result was Culture In Progress [...] CDT Lab Interpretation Normal (test code = 74372-2) [facility] GLUCOSE (AUTOMATED)2022-03-24 01:11:03 Test Item Value Reference Range Interpretation Comments POCT GLU (test code = 4216122901) 211 mg/dL 70-110 H Lab Interpretation (test code = Abnormal 59403-3) [facility]:11:03 Test Item Value Reference Range Interpretation Comments POCT GLU (test code = 9783177158) 211 mg/dL 70-110 H Lab Interpretation (test code = Abnormal 57497-9) [facility] GLUCOSE (AUTOMATED)2022-03-24 01:11:03 Test Item Value Reference Range Interpretation Comments POCT GLU (test code = 0082401480) 211 mg/dL 70-110 H Lab Interpretation (test code = Abnormal 89344-2) [facility] GLUCOSE (AUTOMATED)2022-03-24 01:11:03 Test Item Value Reference Range Interpretation Comments POCT GLU (test code = 6487315211) 211 mg/dL 70-110 H Lab Interpretation (test code = Abnormal 51474-6) [facility] GLUCOSE (AUTOMATED)2022-03-23 22:13:29 Test Item Value Reference Range Interpretation Comments POCT GLU (test code = 5367906730) 89 mg/dL 70-110 Lab Interpretation (test code = Normal 62430-4) [facility] GLUCOSE (AUTOMATED)2022-03-23 22:13:29 Test Item Value Reference Range Interpretation Comments POCT GLU (test code = 0223215108) 89 mg/dL 70-110 Lab Interpretation (test code = Normal 40399-0) [facility] GLUCOSE (AUTOMATED)2022-03-23 22:13:29 Test Item Value Reference Range Interpretation Comments POCT GLU (test code = 3723124139) 89 mg/dL 70-110 Lab Interpretation (test code = Normal 30918-0) [facility] GLUCOSE (AUTOMATED)2022-03-23 22:13:29 Test Item Value Reference Range Interpretation Comments POCT GLU (test code = 2085658960) 89 mg/dL 70-110 Lab Interpretation (test code = Normal 24403-4) [facility] GLUCOSE (AUTOMATED)2022-03-23 16:48:55 Test Item Value Reference Range Interpretation Comments POCT GLU (test code = 7935772427) 274 mg/dL 70-110 H Lab Interpretation (test code = Abnormal 41414-9) [facility] 16:48:55 Test Item Value Reference Range Interpretation Comments POCT GLU (test code = 4036051377) 274 mg/dL 70-110 H Lab Interpretation (test code = Abnormal 13371-0) [facility] 16:48:55 Test Item Value Reference Range Interpretation Comments POCT GLU (test code = 5210543827) 274 mg/dL 70-110 H Lab Interpretation (test code = Abnormal 62415-7) [facility] 16:48:55 Test Item Value Reference Range Interpretation Comments POCT GLU (test code = 2569325351) 274 mg/dL 70-110 H Lab Interpretation (test code = Abnormal 30597-0) [facility] 13:16:06 Test Item Value Reference Range Interpretation Comments POCT GLU (test code = 8908786353) 222 mg/dL 70-110 H Lab Interpretation (test code = Abnormal 01225-3) [facility] 13:16:06 Test Item Value Reference Range Interpretation Comments POCT GLU (test code = 9807273980) 222 mg/dL 70-110 H Lab Interpretation (test code = Abnormal 99822-1) [facility] 13:16:06 Test Item Value Reference Range Interpretation Comments POCT GLU (test code = 1820693383) 222 mg/dL 70-110 H Lab Interpretation (test code = Abnormal 53933-4) [facility] 13:16:06 Test Item Value Reference Range Interpretation Comments POCT GLU (test code = 4164574489) 222 mg/dL 70-110 H Lab Interpretation (test code = Abnormal 70355-7) [facility] 01:21:36 Test Item Value Reference Range Interpretation Comments POCT GLU (test code = 243 mg/dL 70-110 H Notifi ed Provider [id number]) Lab Interpretation (test Abnormal code = 72644-6) [facility] GLUCOSE (AUTOMATED)2022-03-23 01:21:36 Test Item Value Reference Range Interpretation Comments POCT GLU (test code = 243 mg/dL 70-110 H Notifi ed Provider [id number]) Lab Interpretation (test Abnormal code = 22839-6) [facility] GLUCOSE (AUTOMATED)2022-03-23 01:21:36 Test Item Value Reference Range Interpretation Comments POCT GLU (test code = 243 mg/dL 70-110 H Notifi ed Provider [id number]) Lab Interpretation (test Abnormal code = 78321-8) [facility] GLUCOSE (AUTOMATED)2022-03-23 01:21:36 Test Item Value Reference Range Interpretation Comments POCT GLU (test code = 243 mg/dL 70-110 H Notifi ed Provider [id number]) Lab Interpretation (test Abnormal code = 86257-2) [facility] GLUCOSE (AUTOMATED)2022-03-22 23:40:15 Test Item Value Reference Range Interpretation Comments POCT GLU (test code = 2858318885) 196 mg/dL 70-110 H Lab Interpretation (test code = Abnormal 53872-0) [facility] GLUCOSE (AUTOMATED)2022-03-22 23:40:15 Test Item Value Reference Range Interpretation Comments POCT GLU (test code = 3312353702) 196 mg/dL 70-110 H Lab Interpretation (test code = Abnormal 16327-4) [facility] GLUCOSE (AUTOMATED)2022-03-22 23:40:15 Test Item Value Reference Range Interpretation Comments POCT GLU (test code = 0598238455) 196 mg/dL 70-110 H Lab Interpretation (test code = Abnormal 17557-7) [facility] GLUCOSE (AUTOMATED)2022-03-22 23:40:15 Test Item Value Reference Range Interpretation Comments POCT GLU (test code = 9678757976) 196 mg/dL 70-110 H Lab Interpretation (test code = Abnormal 99840-4) [facility] GLUCOSE (AUTOMATED)2022-03-22 17:03:03 Test Item Value Reference Range Interpretation Comments POCT GLU (test code = 0808572118) 250 mg/dL 70-110 H Lab Interpretation (test code = Abnormal 89498-2) [facility] GLUCOSE (AUTOMATED)2022-03-22 17:03:03 Test Item Value Reference Range Interpretation Comments POCT GLU (test code = [id number]) 250 mg/dL 70-110 H Lab Interpretation (test code = Abnormal 23286-0) [facility] GLUCOSE (AUTOMATED)2022-03-22 17:03:03 Test Item Value Reference Range Interpretation Comments POCT GLU (test code = 1686844618) 250 mg/dL 70-110 H Lab Interpretation (test code = Abnormal 32458-7) [facility] GLUCOSE (AUTOMATED)2022-03-22 17:03:03 Test Item Value Reference Range Interpretation Comments POCT GLU (test code = 7626472916) 250 mg/dL 70-110 H Lab Interpretation (test code = Abnormal 58631-9) [facility] GLUCOSE (AUTOMATED)2022-03-22 13:06:53 Test Item Value Reference Range Interpretation Comments POCT GLU (test code = 8183681280) 276 mg/dL 70-110 H Lab Interpretation (test code = Abnormal 22591-2) [facility] GLUCOSE (AUTOMATED)2022-03-22 13:06:53 Test Item Value Reference Range Interpretation Comments POCT GLU (test code = 8318977971) 276 mg/dL 70-110 H Lab Interpretation (test code = Abnormal 80361-4) [facility] GLUCOSE (AUTOMATED)2022-03-22 13:06:53 Test Item Value Reference Range Interpretation Comments POCT GLU (test code = 2645051712) 276 mg/dL 70-110 H Lab Interpretation (test code = Abnormal 48868-5) [facility] GLUCOSE (AUTOMATED)2022-03-22 13:06:53 Test Item Value Reference Range Interpretation Comments POCT GLU (test code = 8906316991) 276 mg/dL 70-110 H Lab Interpretation (test code = Abnormal 01482-7) [facility] WITH [id number] 10:40:52 Test Item Value Reference Range Interpretation [...] RDW-SD (test code = 39.0 fL 39.0-49.9 68564-9) RDW-CV (test code = 12.2 % 12.0-15.5 788-0) PLT (test code = See_Comment [Automated 777-3) message] The sy stem which generated this result transmitted reference range : 166 - 358 10*3/ ?L. The reference r chelsie was not used to interpret this result as normal/abnormal . MPV (test code = 10.7 fL 9.5-12.9 76340-5) NRBC/100 WBC (test See_Comment [Automat ed code = 8257318369) message] The system which generated this result transmitted reference range : 0.0 - 10.0 /100 WBCs. The refer ence range was not u sed to interpret th is result as normal/abnormal . NRBC x10^3 (test code See_Comment [Auto mated = 8013996641) message] The s ystem which generated this result transmitted reference range : 10*3/?L. The reference range was not used to interpret this result as normal/abnormal . GRAN MAT (NEUT) % 59.2 % (test code = 770-8) IMM GRAN % (test code 0.30 % = 1595001854) LYMPH % (test code = 27.8 % 736-9) MONO % (test code = 10.7 % 5905-5) EOS % (test code = 1.5 % 713-8) BASO % (test code = 0.5 % 706-2) GRAN MAT x10^3(ANC) 5.24 10*3/uL 1.88-7.09 (test code = 6448858955) IMM GRAN x10^3 (test 0.03 10*3/uL 0.00-0.06 code = 2276026401) LYMPH x10^3 (test code 2.46 10*3/uL 1.32-3.29 = 731-0) MONO x10^3 (test code 0.95 10*3/uL 0.33-0.92 H = 742-7) EOS x10^3 (test code = 0.13 10*3/uL 0.03-0.39 711-2) BASO x10^3 (test code 0.04 10*3/uL 0.01-0.07 = 704-7) Lab Interpretation Abnormal (test code = 03930-8) [facility] WITH [id number] 10:40:52 Test Item Value Reference Range Interpretation [...] RDW-SD (test code = 39.0 fL 39.0-49.9 72570-8) RDW-CV (test code = 12.2 % 12.0-15.5 788-0) PLT (test code = See_Comment [Automated 777-3) message] The sy stem which generated this result transmitted reference range : 166 - 358 10*3/ ?L. The reference r chelsie was not used to interpret this result as normal/abnormal . MPV (test code = 10.7 fL 9.5-12.9 05077-8) NRBC/100 WBC (test See_Comment [Automat ed code = 1238322483) message] The system which generated this result transmitted reference range : 0.0 - 10.0 /100 WBCs. The refer ence range was not u sed to interpret th is result as normal/abnormal . NRBC x10^3 (test code See_Comment [Auto mated = 3384990045) message] The s ystem which generated this result transmitted reference range : 10*3/?L. The reference range was not used to interpret this result as normal/abnormal . GRAN MAT (NEUT) % 59.2 % (test code = 770-8) IMM GRAN % (test code 0.30 % = 8191095352) LYMPH % (test code = 27.8 % 736-9) MONO % (test code = 10.7 % 5905-5) EOS % (test code = 1.5 % 713-8) BASO % (test code = 0.5 % 706-2) GRAN MAT x10^3(ANC) 5.24 10*3/uL 1.88-7.09 (test code = 1081030474) IMM GRAN x10^3 (test 0.03 10*3/uL 0.00-0.06 code = 3813614456) LYMPH x10^3 (test code 2.46 10*3/uL 1.32-3.29 = 731-0) MONO x10^3 (test code 0.95 10*3/uL 0.33-0.92 H = 742-7) EOS x10^3 (test code = 0.13 10*3/uL 0.03-0.39 711-2) BASO x10^3 (test code 0.04 10*3/uL 0.01-0.07 = 704-7) Lab Interpretation Abnormal (test code = 16857-8) [facility] WITH [id number] 10:40:52 Test Item Value Reference Range Interpretation [...] RDW-SD (test code = 39.0 fL 39.0-49.9 37731-7) RDW-CV (test code = 12.2 % 12.0-15.5 788-0) PLT (test code = See_Comment [Automated 777-3) message] The sy stem which generated this result transmitted reference range : 166 - 358 10*3/ ?L. The reference r chelsie was not used to interpret this result as normal/abnormal . MPV (test code = 10.7 fL 9.5-12.9 01925-4) NRBC/100 WBC (test See_Comment [Automat ed code = 7224580260) message] The system which generated this result transmitted reference range : 0.0 - 10.0 /100 WBCs. The refer ence range was not u sed to interpret th is result as normal/abnormal . NRBC x10^3 (test code See_Comment [Auto mated = 0438347956) message] The s ystem which generated this result transmitted reference range : 10*3/?L. The reference range was not used to interpret this result as normal/abnormal . GRAN MAT (NEUT) % 59.2 % (test code = 770-8) IMM GRAN % (test code 0.30 % = 2275399930) LYMPH % (test code = 27.8 % 736-9) MONO % (test code = 10.7 % 5905-5) EOS % (test code = 1.5 % 713-8) BASO % (test code = 0.5 % 706-2) GRAN MAT x10^3(ANC) 5.24 10*3/uL 1.88-7.09 (test code = 0385467112) IMM GRAN x10^3 (test 0.03 10*3/uL 0.00-0.06 code = 6313912225) LYMPH x10^3 (test code 2.46 10*3/uL 1.32-3.29 = 731-0) MONO x10^3 (test code 0.95 10*3/uL 0.33-0.92 H = 742-7) EOS x10^3 (test code = 0.13 10*3/uL 0.03-0.39 711-2) BASO x10^3 (test code 0.04 10*3/uL 0.01-0.07 = 704-7) Lab Interpretation Abnormal (test code = 13911-7) [facility] WITH [id number] 10:40:52 Test Item Value Reference Range Interpretation [...] RDW-SD (test code = 39.0 fL 39.0-49.9 30377-5) RDW-CV (test code = 12.2 % 12.0-15.5 788-0) PLT (test code = See_Comment [Automated 777-3) message] The sy stem which generated this result transmitted reference range : 166 - 358 10*3/ ?L. The reference r chelsie was not used to interpret this result as normal/abnormal . MPV (test code = 10.7 fL 9.5-12.9 81053-5) NRBC/100 WBC (test See_Comment [Automat ed code = 9221865366) message] The system which generated this result transmitted reference range : 0.0 - 10.0 /100 WBCs. The refer ence range was not u sed to interpret th is result as normal/abnormal . NRBC x10^3 (test code See_Comment [Auto mated = 0226825511) message] The s ystem which generated this result transmitted reference range : 10*3/?L. The reference range was not used to interpret this result as normal/abnormal . GRAN MAT (NEUT) % 59.2 % (test code = 770-8) IMM GRAN % (test code 0.30 % = 1919169069) LYMPH % (test code = 27.8 % 736-9) MONO % (test code = 10.7 % 5905-5) EOS % (test code = 1.5 % 713-8) BASO % (test code = 0.5 % 706-2) GRAN MAT x10^3(ANC) 5.24 10*3/uL 1.88-7.09 (test code = 3921489961) IMM GRAN x10^3 (test 0.03 10*3/uL 0.00-0.06 code = 6186069412) LYMPH x10^3 (test code 2.46 10*3/uL 1.32-3.29 = 731-0) MONO x10^3 (test code 0.95 10*3/uL 0.33-0.92 H = 742-7) EOS x10^3 (test code = 0.13 10*3/uL 0.03-0.39 711-2) BASO x10^3 (test code 0.04 10*3/uL 0.01-0.07 = 704-7) Lab Interpretation Abnormal (test code = 19805-8) [facility] GLUCOSE (AUTOMATED)2022-03-22 01:41:40 Test Item Value Reference Range Interpretation Comments POCT GLU (test code = 5819241154) 213 mg/dL 70-110 H Lab Interpretation (test code = Abnormal 71939-1) [facility] GLUCOSE (AUTOMATED)2022-03-22 01:41:40 Test Item Value Reference Range Interpretation Comments POCT GLU (test code = 7987296340) 213 mg/dL 70-110 H Lab Interpretation (test code = Abnormal 68128-6) [facility] GLUCOSE (AUTOMATED)2022-03-22 01:41:40 Test Item Value Reference Range Interpretation Comments POCT GLU (test code = 3048942330) 213 mg/dL 70-110 H Lab Interpretation (test code = Abnormal 06696-5) [facility] GLUCOSE (AUTOMATED)2022-03-22 01:41:40 Test Item Value Reference Range Interpretation Comments POCT GLU (test code = 5456755499) 213 mg/dL 70-110 H Lab Interpretation (test code = Abnormal 56337-0) [facility] GLUCOSE (AUTOMATED)2022-03-21 22:02:36 Test Item Value Reference Range Interpretation Comments POCT GLU (test code = 2836275375) 181 mg/dL 70-110 H Lab Interpretation (test code = Abnormal 49551-7) [facility] GLUCOSE (AUTOMATED)2022-03-21 22:02:36 Test Item Value Reference Range Interpretation Comments POCT GLU (test code = 1700206926) 181 mg/dL 70-110 H Lab Interpretation (test code = Abnormal 45556-2) [facility] GLUCOSE (AUTOMATED)2022-03-21 22:02:36 Test Item Value Reference Range Interpretation Comments POCT GLU (test code = 2508455215) 181 mg/dL 70-110 H Lab Interpretation (test code = Abnormal 98475-8) [facility] GLUCOSE (AUTOMATED)2022-03-21 22:02:36 Test Item Value Reference Range Interpretation Comments POCT GLU (test code = 5451844329) 181 mg/dL 70-110 H Lab Interpretation (test code = Abnormal 77510-4) [facility] [id number] 20:49:11 Test Item Value Reference Range Interpretation Comments VANCO RANDOM (test code = 7.6 ug/mL 7778240828) [facility] Random [id number] 20:49:11 Test Item Value Reference Range Interpretation Comments VANCO RANDOM (test code = 7.6 ug/mL 8759203520) [facility] Random [id number] 20:49:11 Test Item Value Reference Range Interpretation Comments VANCO RANDOM (test code = 7.6 ug/mL 2264385518) [facility] Random [id number] 20:49:11 Test Item Value Reference Range Interpretation Comments VANCO RANDOM (test code = 7.6 ug/mL 0041993959) [facility] Random Rycho1423-21-26 20:49:11 Test Item Value Reference Range Interpretation Comments VANCO RANDOM (test code = 7.6 ug/mL 1546878321) [facility] GLUCOSE (AUTOMATED)2022-03-21 17:10:01 Test Item Value Reference Range Interpretation Comments POCT GLU (test code = 1440843138) 291 mg/dL 70-110 H Lab Interpretation (test code = Abnormal 52390-4) [facility] GLUCOSE (AUTOMATED)2022-03-21 17:10:01 Test Item Value Reference Range Interpretation Comments POCT GLU (test code = 1565706460) 291 mg/dL 70-110 H Lab Interpretation (test code = Abnormal 87325-3) [facility] GLUCOSE (AUTOMATED)2022-03-21 17:10:01 Test Item Value Reference Range Interpretation Comments POCT GLU (test code = 2969123723) 291 mg/dL 70-110 H Lab Interpretation (test code = Abnormal 81389-7) [facility] GLUCOSE (AUTOMATED)2022-03-21 17:10:01 Test Item Value Reference Range Interpretation Comments POCT GLU (test code = 0397468490) 291 mg/dL 70-110 H Lab Interpretation (test code = Abnormal 66737-7) [facility] GLUCOSE (AUTOMATED)2022-03-21 13:43:44 Test Item Value Reference Range Interpretation Comments POCT GLU (test code = 5431675403) 342 mg/dL 70-110 H Lab Interpretation (test code = Abnormal 56387-8) [facility] GLUCOSE (AUTOMATED)2022-03-21 13:43:44 Test Item Value Reference Range Interpretation Comments POCT GLU (test code = 7624486155) 342 mg/dL 70-110 H Lab Interpretation (test code = Abnormal 31848-4) [facility] GLUCOSE (AUTOMATED)2022-03-21 13:43:44 Test Item Value Reference Range Interpretation Comments POCT GLU (test code = 8579173271) 342 mg/dL 70-110 H Lab Interpretation (test code = Abnormal 54189-1) [facility] GLUCOSE (AUTOMATED)2022-03-21 13:43:44 Test Item Value Reference Range Interpretation Comments POCT GLU (test code = 9841363040) 342 mg/dL 70-110 H Lab Interpretation (test code = Abnormal 58830-0) [facility] GLUCOSE (AUTOMATED)2022-03-21 01:37:37 Test Item Value Reference Range Interpretation Comments POCT GLU (test code = 3667588990) 231 mg/dL 70-110 H Lab Interpretation (test code = Abnormal 70049-9) [facility] GLUCOSE (AUTOMATED)2022-03-21 01:37:37 Test Item Value Reference Range Interpretation Comments POCT GLU (test code = 5679959527) 231 mg/dL 70-110 H Lab Interpretation (test code = Abnormal 64876-4) [facility] GLUCOSE (AUTOMATED)2022-03-21 01:37:37 Test Item Value Reference Range Interpretation Comments POCT GLU (test code = 3045457021) 231 mg/dL 70-110 H Lab Interpretation (test code = Abnormal 45084-0) [facility] GLUCOSE (AUTOMATED)2022-03-21 01:37:37 Test Item Value Reference Range Interpretation Comments POCT GLU (test code = 5881892757) 231 mg/dL 70-110 H Lab Interpretation (test code = Abnormal 41347-5) [facility] GLUCOSE (AUTOMATED)2022-03-20 22:06:52 Test Item Value Reference Range Interpretation Comments POCT GLU (test code = 0505646887) 136 mg/dL 70-110 H Lab Interpretation (test code = Abnormal 42074-0) [facility] GLUCOSE (AUTOMATED)2022-03-20 22:06:52 Test Item Value Reference Range Interpretation Comments POCT GLU (test code = 7820569636) 136 mg/dL 70-110 H Lab Interpretation (test code = Abnormal 39513-6) [facility] GLUCOSE (AUTOMATED)2022-03-20 22:06:52 Test Item Value Reference Range Interpretation Comments POCT GLU (test code = 2755334895) 136 mg/dL 70-110 H Lab Interpretation (test code = Abnormal 13062-6) [facility] GLUCOSE (AUTOMATED)2022-03-20 22:06:52 Test Item Value Reference Range Interpretation Comments POCT GLU (test code = 8605132306) 136 mg/dL 70-110 H Lab Interpretation (test code = Abnormal 09995-1) [facility] GLUCOSE (AUTOMATED)2022-03-20 16:41:19 Test Item Value Reference Range Interpretation Comments POCT GLU (test code = 0560436623) 329 mg/dL 70-110 H Lab Interpretation (test code = Abnormal 42451-8) [facility] GLUCOSE (AUTOMATED)2022-03-20 16:41:19 Test Item Value Reference Range Interpretation Comments POCT GLU (test code = 4036376595) 329 mg/dL 70-110 H Lab Interpretation (test code = Abnormal 37648-6) [facility] GLUCOSE (AUTOMATED)2022-03-20 16:41:19 Test Item Value Reference Range Interpretation Comments POCT GLU (test code = 3889307580) 329 mg/dL 70-110 H Lab Interpretation (test code = Abnormal 26403-7) [facility] GLUCOSE (AUTOMATED)2022-03-20 16:41:19 Test Item Value Reference Range Interpretation Comments POCT GLU (test code = 5902216377) 329 mg/dL 70-110 H Lab Interpretation (test code = Abnormal 07790-3) [facility] GLUCOSE (AUTOMATED)2022-03-20 12:38:22 Test Item Value Reference Range Interpretation Comments POCT GLU (test code = 0582185945) 178 mg/dL 70-110 H Lab Interpretation (test code = Abnormal 34601-9) [facility] GLUCOSE (AUTOMATED)2022-03-20 12:38:22 Test Item Value Reference Range Interpretation Comments POCT GLU (test code = 2829100907) 178 mg/dL 70-110 H Lab Interpretation (test code = Abnormal 39474-4) [facility] GLUCOSE (AUTOMATED)2022-03-20 12:38:22 Test Item Value Reference Range Interpretation Comments POCT GLU (test code = 2961466480) 178 mg/dL 70-110 H Lab Interpretation (test code = Abnormal 40184-9) [facility] GLUCOSE (AUTOMATED)2022-03-20 12:38:22 Test Item Value Reference Range Interpretation Comments POCT GLU (test code = 6141028777) 178 mg/dL 70-110 H Lab Interpretation (test code = Abnormal 74550-0) [facility] GLUCOSE (AUTOMATED)2022-03-20 01:23:07 Test Item Value Reference Range Interpretation Comments POCT GLU (test code = 5028324103) 232 mg/dL 70-110 H Lab Interpretation (test code = Abnormal 53394-9) [facility] GLUCOSE (AUTOMATED)2022-03-20 01:23:07 Test Item Value Reference Range Interpretation Comments POCT GLU (test code = 8563338100) 232 mg/dL 70-110 H Lab Interpretation (test code = Abnormal 14981-8) [facility] GLUCOSE (AUTOMATED)2022-03-20 01:23:07 Test Item Value Reference Range Interpretation Comments POCT GLU (test code = 0002505484) 232 mg/dL 70-110 H Lab Interpretation (test code = Abnormal 01937-6) [facility] GLUCOSE (AUTOMATED)2022-03-20 01:23:07 Test Item Value Reference Range Interpretation Comments POCT GLU (test code = 4409928182) 232 mg/dL 70-110 H Lab Interpretation (test code = Abnormal 24379-5) [facility] GLUCOSE (AUTOMATED)2022-03-19 23:58:11 Test Item Value Reference Range Interpretation Comments POCT GLU (test code = 7065372677) 193 mg/dL 70-110 H Lab Interpretation (test code = Abnormal 30991-5) [facility] GLUCOSE (AUTOMATED)2022-03-19 23:58:11 Test Item Value Reference Range Interpretation Comments POCT GLU (test code = 5463216929) 193 mg/dL 70-110 H Lab Interpretation (test code = Abnormal 47981-0) [facility] GLUCOSE (AUTOMATED)2022-03-19 23:58:11 Test Item Value Reference Range Interpretation Comments POCT GLU (test code = 5253387356) 193 mg/dL 70-110 H Lab Interpretation (test code = Abnormal 99043-7) [facility] GLUCOSE (AUTOMATED)2022-03-19 23:58:11 Test Item Value Reference Range Interpretation Comments POCT GLU (test code = 3335978280) 193 mg/dL 70-110 H Lab Interpretation (test code = Abnormal 38867-9) [facility] GLUCOSE (AUTOMATED)2022-03-19 16:47:08 Test Item Value Reference Range Interpretation Comments POCT GLU (test code = 5925282466) 275 mg/dL 70-110 H Lab Interpretation (test code = Abnormal 40379-7) [facility] GLUCOSE (AUTOMATED)2022-03-19 16:47:08 Test Item Value Reference Range Interpretation Comments POCT GLU (test code = 9115144049) 275 mg/dL 70-110 H Lab Interpretation (test code = Abnormal 62934-3) [facility] GLUCOSE (AUTOMATED)2022-03-19 16:47:08 Test Item Value Reference Range Interpretation Comments POCT GLU (test code = 9062845618) 275 mg/dL 70-110 H Lab Interpretation (test code = Abnormal 06736-0) [facility] GLUCOSE (AUTOMATED)2022-03-19 16:47:08 Test Item Value Reference Range Interpretation Comments POCT GLU (test code = 9857717284) 275 mg/dL 70-110 H Lab Interpretation (test code = Abnormal 22175-9) [facility] 15:10:36 Test Item Value Reference Range Interpretation Comments HGB A1C (test code = 4.0-5.7 H 4548-4) NISHA (test code = NISHA) Reference RangesNormal: <5.7%Prediabetes: 5.7 - 6.4%Diabetes: > 6.5% Lab Interpretation (test Abnormal code = 11260-2) [facility] 15:10:36 Test Item Value Reference Range Interpretation Comments HGB A1C (test code = 4.0-5.7 H 4548-4) NISHA (test code = NISHA) Reference RangesNormal: <5.7%Prediabetes: 5.7 - 6.4%Diabetes: > 6.5% Lab Interpretation (test Abnormal code = 94912-2) [facility] 15:10:36 Test Item Value Reference Range Interpretation Comments HGB A1C (test code = 4.0-5.7 H 4548-4) NISHA (test code = NISHA) Reference RangesNormal: <5.7%Prediabetes: 5.7 - 6.4%Diabetes: > 6.5% Lab Interpretation (test Abnormal code = 88887-5) [facility] 15:10:36 Test Item Value Reference Range Interpretation Comments HGB A1C (test code = 4.0-5.7 H 4548-4) NISHA (test code = NISHA) Reference RangesNormal: <5.7%Prediabetes: 5.7 - 6.4%Diabetes: > 6.5% Lab Interpretation (test Abnormal code = 64299-1) [facility] 15:10:36 Test Item Value Reference Range Interpretation Comments HGB A1C (test code = 4.0-5.7 H 4548-4) NISHA (test code = NISHA) Reference RangesNormal: <5.7%Prediabetes: 5.7 - 6.4%Diabetes: > 6.5% Lab Interpretation (test Abnormal code = 39128-1) [facility] GLUCOSE (AUTOMATED)2022-03-19 12:34:11 Test Item Value Reference Range Interpretation Comments POCT GLU (test code = 6493677422) 275 mg/dL 70-110 H Lab Interpretation (test code = Abnormal 18964-9) [facility] GLUCOSE (AUTOMATED)2022-03-19 12:34:11 Test Item Value Reference Range Interpretation Comments POCT GLU (test code = 6015052027) 275 mg/dL 70-110 H Lab Interpretation (test code = Abnormal 78324-9) [facility] GLUCOSE (AUTOMATED)2022-03-19 12:34:11 Test Item Value Reference Range Interpretation Comments POCT GLU (test code = 8727545690) 275 mg/dL 70-110 H Lab Interpretation (test code = Abnormal 08735-8) [facility] GLUCOSE (AUTOMATED)2022-03-19 12:34:11 Test Item Value Reference Range Interpretation Comments POCT GLU (test code = 1000683150) 275 mg/dL 70-110 H Lab Interpretation (test code = Abnormal 80872-0) [facility] METABOLIC PANEL (NA, K, CL, CO2, GLUCOSE, BUN, CREATININE, CA)2022-03-19 09:28:45 Test Item Value Reference Range Interpretation Comments NA (test code = 134 mmol/L 135-145 L 2149626938) K (test code = 3.9 mmol/L 3.5-5.0 1213042673) CL (test code = 102 mmol/L 98-108 0577550150) CO2 TOTAL (test code = 24 mmol/L 23-31 0235635623) AGAP (test code = 2-16 6105094736) BUN (test code = 15 mg/dL 7-23 3558864085) GLUCOSE (test code = 249 mg/dL 70-110 H 2412823275) CREATININE (test code = 0.57 mg/dL 0.50-1.04 2678815220) CALCIUM (test code = 8.2 mg/dL 8.6-10.6 L 8832848604) eGFR (test code = mL/min/1.73m2 8400313384) NISHA (test code = NISHA) Association of [...] tests). Lab Interpretation Abnormal (test code = 37162-4) [facility] METABOLIC PANEL (NA, K, CL, CO2, GLUCOSE, BUN, CREATININE, CA)2022-03-19 09:28:45 Test Item Value Reference Range Interpretation Comments NA (test code = 134 mmol/L 135-145 L 8224808110) K (test code = 3.9 mmol/L 3.5-5.0 2730611893) CL (test code = 102 mmol/L 98-108 1596941111) CO2 TOTAL (test code = 24 mmol/L 23-31 0659010314) AGAP (test code = 2-16 5599879875) BUN (test code = 15 mg/dL 7-23 4517883208) GLUCOSE (test code = 249 mg/dL 70-110 H 1430255673) CREATININE (test code = 0.57 mg/dL 0.50-1.04 3740857969) CALCIUM (test code = 8.2 mg/dL 8.6-10.6 L 6194858030) eGFR (test code = mL/min/1.73m2 2552087346) NISHA (test code = NISHA) Association of [...] tests). Lab Interpretation Abnormal (test code = 95845-6) [facility] METABOLIC PANEL (NA, K, CL, CO2, GLUCOSE, BUN, CREATININE, CA)2022-03-19 09:28:45 Test Item Value Reference Range Interpretation Comments NA (test code = 134 mmol/L 135-145 L 1285963380) K (test code = 3.9 mmol/L 3.5-5.0 5066392699) CL (test code = 102 mmol/L 98-108 2182235384) CO2 TOTAL (test code = 24 mmol/L 23-31 2546317859) AGAP (test code = 2-16 3968500717) BUN (test code = 15 mg/dL 7-23 5135454946) GLUCOSE (test code = 249 mg/dL 70-110 H 3561482569) CREATININE (test code = 0.57 mg/dL 0.50-1.04 9395672781) CALCIUM (test code = 8.2 mg/dL 8.6-10.6 L 3040750861) eGFR (test code = mL/min/1.73m2 4710182354) NISHA (test code = NISHA) Association of [...] tests). Lab Interpretation Abnormal (test code = 45426-7) [facility] METABOLIC PANEL (NA, K, CL, CO2, GLUCOSE, BUN, CREATININE, CA)2022-03-19 09:28:45 Test Item Value Reference Range Interpretation Comments NA (test code = 134 mmol/L 135-145 L 3152967094) K (test code = 3.9 mmol/L 3.5-5.0 5116111276) CL (test code = 102 mmol/L 98-108 9938832644) CO2 TOTAL (test code = 24 mmol/L 23-31 5737085429) AGAP (test code = 2-16 7314978616) BUN (test code = 15 mg/dL 7-23 3537633113) GLUCOSE (test code = 249 mg/dL 70-110 H 1390526676) CREATININE (test code = 0.57 mg/dL 0.50-1.04 6465181201) CALCIUM (test code = 8.2 mg/dL 8.6-10.6 L 3936100808) eGFR (test code = mL/min/1.73m2 3018195497) NISHA (test code = NISHA) Association of [...] tests). Lab Interpretation Abnormal (test code = 94819-2) [facility] GLUCOSE(AGE >30DAYS)2022-03-19 07:48:00 Test Item Value Reference Range Interpretation Comments POCT Glu (age>30days) (test code = 328 mg/dL 70-110 A 3342) Lab Interpretation (test code = Abnormal 42569-9) [facility] GLUCOSE(AGE >30DAYS)2022-03-19 07:48:00 Test Item Value Reference Range Interpretation Comments POCT Glu (age>30days) (test code = 328 mg/dL 70-110 A 3342) Lab Interpretation (test code = Abnormal 80237-5) [facility] GLUCOSE(AGE >30DAYS)2022-03-19 07:48:00 Test Item Value Reference Range Interpretation Comments POCT Glu (age>30days) (test code = 328 mg/dL 70-110 A 3342) Lab Interpretation (test code = Abnormal 57627-4) [facility] GLUCOSE(AGE >30DAYS)2022-03-19 07:48:00 Test Item Value Reference Range Interpretation Comments POCT Glu (age>30days) (test code = 328 mg/dL 70-110 A 3342) Lab Interpretation (test code = Abnormal 12151-6) [facility] GLUCOSE(AGE >30DAYS)2022-03-19 07:48:00 Test Item Value Reference Range Interpretation Comments POCT Glu (age>30days) (test code = 328 mg/dL 70-110 A 3342) Lab Interpretation (test code = Abnormal 79490-1) [facility] GLUCOSE (AUTOMATED)2022-03-19 07:46:07 Test Item Value Reference Range Interpretation Comments POCT GLU (test code = 4277928170) 328 mg/dL 70-110 H Lab Interpretation (test code = Abnormal 15571-8) [facility] GLUCOSE (AUTOMATED)2022-03-19 07:46:07 Test Item Value Reference Range Interpretation Comments POCT GLU (test code = 0281408338) 328 mg/dL 70-110 H Lab Interpretation (test code = Abnormal 07563-5) [facility] GLUCOSE (AUTOMATED)2022-03-19 07:46:07 Test Item Value Reference Range Interpretation Comments POCT GLU (test code = 4809840455) 328 mg/dL 70-110 H Lab Interpretation (test code = Abnormal 29528-7) [facility] GLUCOSE (AUTOMATED)2022-03-19 07:46:07 Test Item Value Reference Range Interpretation Comments POCT GLU (test code = 5823451165) 328 mg/dL 70-110 H Lab Interpretation (test code = Abnormal 76795-9) [facility] METABOLIC PANEL ([id number])2022-03-19 06:53:44 Test Item Value Reference Range Interpretation Comments NA (test code = 129 mmol/L 135-145 L 2975407632) K (test code = 4.8 mmol/L 3.5-5.0 Slight 8236195449) hemolysis CL (test code = 91 mmol/L 98-108 L 1255802900) CO2 TOTAL (test code 20 mmol/L 23-31 L = 2133405918) AGAP (test code = 2-16 H 6879761794) BUN (test code = 17 mg/dL 7-23 Slight 5563633394) hemolysis GLUCOSE (test code = 602 mg/dL 70-110 HH 7448354122) CREATININE (test code 0.67 mg/dL 0.50-1.04 = 6118339347) TOTAL BILI (test code 1.1 mg/dL 0.1-1.1 = 4189591595) CALCIUM (test code = 9.4 mg/dL 8.6-10.6 1429351597) T PROTEIN (test code 8.0 g/dL 6.3-8.2 = 5333006099) ALBUMIN (test code = 4.4 g/dL 3.5-5.0 7544793981) ALK PHOS (test code = 182 U/L 34-122 H Slight 0681182709) hemolysis ALTv (test code = 16 U/L 5-35 1742-6) AST(SGOT) (test code 20 U/L 13-40 Slight = 1789457982) hemolysis eGFR (test code = mL/min/1.73m2 1053807660) NISHA (test code = NISHA) Association of [...] tests). Lab Interpretation Abnormal (test code = 53826-9) [facility]. METABOLIC PANEL ([id number])2022-03-19 06:53:44 Test Item Value Reference Range Interpretation Comments NA (test code = 129 mmol/L 135-145 L 3096314999) K (test code = 4.8 mmol/L 3.5-5.0 Slight 5723747153) hemolysis CL (test code = 91 mmol/L 98-108 L 6892107699) CO2 TOTAL (test code 20 mmol/L 23-31 L = 0815890128) AGAP (test code = 2-16 H 3872489646) BUN (test code = 17 mg/dL 7-23 Slight 0331418102) hemolysis GLUCOSE (test code = 602 mg/dL 70-110 HH 8592545719) CREATININE (test code 0.67 mg/dL 0.50-1.04 = 5480774975) TOTAL BILI (test code 1.1 mg/dL 0.1-1.1 = 7478683249) CALCIUM (test code = 9.4 mg/dL 8.6-10.6 5486061239) T PROTEIN (test code 8.0 g/dL 6.3-8.2 = 8356191094) ALBUMIN (test code = 4.4 g/dL 3.5-5.0 4029035589) ALK PHOS (test code = 182 U/L 34-122 H Slight 9433258624) hemolysis ALTv (test code = 16 U/L 5-35 1742-6) AST(SGOT) (test code 20 U/L 13-40 Slight = 5889377088) hemolysis eGFR (test code = mL/min/1.73m2 1247110317) NISHA (test code = NISHA) Association of [...] tests). Lab Interpretation Abnormal (test code = 40358-4) [id number][facility] 06:53:44 Test Item Value Reference Range Interpretation Comments NA (test code = 129 mmol/L 135-145 L 2043773156) K (test code = 4.8 mmol/L 3.5-5.0 Slight 7523965968) hemolysis CL (test code = 91 mmol/L 98-108 L 5458660295) CO2 TOTAL (test code 20 mmol/L 23-31 L = 3134604589) AGAP (test code = 2-16 H 7635539677) BUN (test code = 17 mg/dL 7-23 Slight 0435950681) hemolysis GLUCOSE (test code = 602 mg/dL 70-110 HH 7775565973) CREATININE (test code 0.67 mg/dL 0.50-1.04 = 0972444593) TOTAL BILI (test code 1.1 mg/dL 0.1-1.1 = 7135968231) CALCIUM (test code = 9.4 mg/dL 8.6-10.6 3946134952) T PROTEIN (test code 8.0 g/dL 6.3-8.2 = 0111038672) ALBUMIN (test code = 4.4 g/dL 3.5-5.0 9298456145) ALK PHOS (test code = 182 U/L 34-122 H Slight 6646735247) hemolysis ALTv (test code = 16 U/L 5-35 1742-6) AST(SGOT) (test code 20 U/L 13-40 Slight = 6103409880) hemolysis eGFR (test code = mL/min/1.73m2 3319138735) NISHA (test code = NISHA) Association of [...] tests). Lab Interpretation Abnormal (test code = 25663-8) [facility]. METABOLIC PANEL ([id number])2022-03-19 06:53:44 Test Item Value Reference Range Interpretation Comments NA (test code = 129 mmol/L 135-145 L 1035615953) K (test code = 4.8 mmol/L 3.5-5.0 Slight 3100869414) hemolysis CL (test code = 91 mmol/L 98-108 L 6883097630) CO2 TOTAL (test code 20 mmol/L 23-31 L = 0702997887) AGAP (test code = 2-16 H 7467166280) BUN (test code = 17 mg/dL 7-23 Slight 5861491894) hemolysis GLUCOSE (test code = 602 mg/dL 70-110 HH 9532048868) CREATININE (test code 0.67 mg/dL 0.50-1.04 = 5534393299) TOTAL BILI (test code 1.1 mg/dL 0.1-1.1 = 6761985368) CALCIUM (test code = 9.4 mg/dL 8.6-10.6 5616693285) T PROTEIN (test code 8.0 g/dL 6.3-8.2 = 0438197514) ALBUMIN (test code = 4.4 g/dL 3.5-5.0 2009486242) ALK PHOS (test code = 182 U/L 34-122 H Slight 6372908169) hemolysis ALTv (test code = 16 U/L 5-35 1742-6) AST(SGOT) (test code 20 U/L 13-40 Slight = 5501382702) hemolysis eGFR (test code = mL/min/1.73m2 2637875947) NISHA (test code = NISHA) Association of [...] tests). Lab Interpretation Abnormal (test code = 10918-8) [facility] WITH [id number] 06:28:00 Test Item Value Reference Range Interpretation Comments WBC (test code = See_Comment [Automated 3878-2) message] The sy stem which generated this result transmitted reference range : 4.30 - 11.10 10*3/?L. The reference range was not used to interpret this result as normal/abnormal . RBC (test code = See_Comment [Automated 351-8) message] The sy stem which generated this [...] (test code = 36.5 fL 39.0-49.9 L 37685-9) RDW-CV (test code = 11.9 % 12.0-15.5 L 788-0) PLT (test code = See_Comment H [Automated 777-3) message] The sy stem which generated this result transmitted reference range : 166 - 358 10*3/ ?L. The reference r chelsie was not used to interpret this result as normal/abnormal . MPV (test code = 10.4 fL 9.5-12.9 87560-6) NRBC/100 WBC (test See_Comment [Automat ed code = 0200973857) message] The system which generated this result transmitted reference range : 0.0 - 10.0 /100 WBCs. The refer ence range was not u sed to interpret th is result as normal/abnormal . NRBC x10^3 (test code See_Comment [Auto mated = 2726352165) message] The s ystem which generated this result transmitted reference range : 10*3/?L. The reference range was not used to interpret this result as normal/abnormal . GRAN MAT (NEUT) % 68.3 % (test code = 770-8) IMM GRAN % (test code 0.50 % = 5848849061) LYMPH % (test code = 23.5 % 736-9) MONO % (test code = 6.2 % 5905-5) EOS % (test code = 0.8 % 713-8) BASO % (test code = 0.7 % 706-2) GRAN MAT x10^3(ANC) 6.85 10*3/uL 1.88-7.09 (test code = 6240275219) IMM GRAN x10^3 (test 0.05 10*3/uL 0.00-0.06 code = 5130632877) LYMPH x10^3 (test code 2.36 10*3/uL 1.32-3.29 = 731-0) MONO x10^3 (test code 0.62 10*3/uL 0.33-0.92 = 742-7) EOS x10^3 (test code = 0.08 10*3/uL 0.03-0.39 711-2) BASO x10^3 (test code 0.07 10*3/uL 0.01-0.07 = 704-7) Lab Interpretation Abnormal (test code = 78185-0) [facility] WITH [id number] 06:28:00 Test Item Value Reference Range Interpretation [...] (test code = 36.5 fL 39.0-49.9 L 55904-3) RDW-CV (test code = 11.9 % 12.0-15.5 L 788-0) PLT (test code = See_Comment H [Automated 777-3) message] The sy stem which generated this result transmitted reference range : 166 - 358 10*3/ ?L. The reference r chelsie was not used to interpret this result as normal/abnormal . MPV (test code = 10.4 fL 9.5-12.9 16954-1) NRBC/100 WBC (test See_Comment [Automat ed code = 3284490754) message] The system which generated this result transmitted reference range : 0.0 - 10.0 /100 WBCs. The refer ence range was not u sed to interpret th is result as normal/abnormal . NRBC x10^3 (test code See_Comment [Auto mated = 4693387793) message] The s ystem which generated this result transmitted reference range : 10*3/?L. The reference range was not used to interpret this result as normal/abnormal . GRAN MAT (NEUT) % 68.3 % (test code = 770-8) IMM GRAN % (test code 0.50 % = 1280337574) LYMPH % (test code = 23.5 % 736-9) MONO % (test code = 6.2 % 5905-5) EOS % (test code = 0.8 % 713-8) BASO % (test code = 0.7 % 706-2) GRAN MAT x10^3(ANC) 6.85 10*3/uL 1.88-7.09 (test code = 1153200271) IMM GRAN x10^3 (test 0.05 10*3/uL 0.00-0.06 code = 4866762273) LYMPH x10^3 (test code 2.36 10*3/uL 1.32-3.29 = 731-0) MONO x10^3 (test code 0.62 10*3/uL 0.33-0.92 = 742-7) EOS x10^3 (test code = 0.08 10*3/uL 0.03-0.39 711-2) BASO x10^3 (test code 0.07 10*3/uL 0.01-0.07 = 704-7) Lab Interpretation Abnormal (test code = 41279-5) [facility] WITH [id number] 06:28:00 Test Item Value Reference Range Interpretation Comments WBC (test code = See_Comment [Automated 2407-2) message] The sy stem which generated this result transmitted reference range : 4.30 - 11.10 10*3/?L. The reference range was not used to interpret this result as normal/abnormal . RBC (test code = See_Comment [Automated 990-8) message] The sy stem which generated this [...] (test code = 36.5 fL 39.0-49.9 L 59133-8) RDW-CV (test code = 11.9 % 12.0-15.5 L 788-0) PLT (test code = See_Comment H [Automated 777-3) message] The sy stem which generated this result transmitted reference range : 166 - 358 10*3/ ?L. The reference r chelsie was not used to interpret this result as normal/abnormal . MPV (test code = 10.4 fL 9.5-12.9 21103-6) NRBC/100 WBC (test See_Comment [Automat ed code = 5768898041) message] The system which generated this result transmitted reference range : 0.0 - 10.0 /100 WBCs. The refer ence range was not u sed to interpret th is result as normal/abnormal . NRBC x10^3 (test code See_Comment [Auto mated = 7368358649) message] The s ystem which generated this result transmitted reference range : 10*3/?L. The reference range was not used to interpret this result as normal/abnormal . GRAN MAT (NEUT) % 68.3 % (test code = 770-8) IMM GRAN % (test code 0.50 % = 3577769393) LYMPH % (test code = 23.5 % 736-9) MONO % (test code = 6.2 % 5905-5) EOS % (test code = 0.8 % 713-8) BASO % (test code = 0.7 % 706-2) GRAN MAT x10^3(ANC) 6.85 10*3/uL 1.88-7.09 (test code = 8722956703) IMM GRAN x10^3 (test 0.05 10*3/uL 0.00-0.06 code = 6892590131) LYMPH x10^3 (test code 2.36 10*3/uL 1.32-3.29 = 731-0) MONO x10^3 (test code 0.62 10*3/uL 0.33-0.92 = 742-7) EOS x10^3 (test code = 0.08 10*3/uL 0.03-0.39 711-2) BASO x10^3 (test code 0.07 10*3/uL 0.01-0.07 = 704-7) Lab Interpretation Abnormal (test code = 34681-8) [facility] WITH [id number] 06:28:00 Test Item Value Reference Range Interpretation [...] (test code = 36.5 fL 39.0-49.9 L 84053-1) RDW-CV (test code = 11.9 % 12.0-15.5 L 788-0) PLT (test code = See_Comment H [Automated 777-3) message] The sy stem which generated this result transmitted reference range : 166 - 358 10*3/ ?L. The reference r chelsie was not used to interpret this result as normal/abnormal . MPV (test code = 10.4 fL 9.5-12.9 47684-6) NRBC/100 WBC (test See_Comment [Automat ed code = 5040984916) message] The system which generated this result transmitted reference range : 0.0 - 10.0 /100 WBCs. The refer ence range was not u sed to interpret th is result as normal/abnormal . NRBC x10^3 (test code See_Comment [Auto mated = 2655763900) message] The s ystem which generated this result transmitted reference range : 10*3/?L. The reference range was not used to interpret this result as normal/abnormal . GRAN MAT (NEUT) % 68.3 % (test code = 770-8) IMM GRAN % (test code 0.50 % = 5733477302) LYMPH % (test code = 23.5 % 736-9) MONO % (test code = 6.2 % 5905-5) EOS % (test code = 0.8 % 713-8) BASO % (test code = 0.7 % 706-2) GRAN MAT x10^3(ANC) 6.85 10*3/uL 1.88-7.09 (test code = 4490267230) IMM GRAN x10^3 (test 0.05 10*3/uL 0.00-0.06 code = 1989047021) LYMPH x10^3 (test code 2.36 10*3/uL 1.32-3.29 = 731-0) MONO x10^3 (test code 0.62 10*3/uL 0.33-0.92 = 742-7) EOS x10^3 (test code = 0.08 10*3/uL 0.03-0.39 711-2) BASO x10^3 (test code 0.07 10*3/uL 0.01-0.07 = 704-7) Lab Interpretation Abnormal (test code = 13841-6) [facility] GLUCOSE (AUTOMATED)2022-03-19 06:15:05 Test Item Value Reference Range Interpretation Comments POCT GLU (test code = 4562899222) 593 mg/dL 70-110 HH Lab Interpretation (test code = Abnormal 21916-1) [facility] GLUCOSE (AUTOMATED)2022-03-19 06:15:05 Test Item Value Reference Range Interpretation Comments POCT GLU (test code = 0416401232) 593 mg/dL 70-110 HH Lab Interpretation (test code = Abnormal 57632-9) [facility] GLUCOSE (AUTOMATED)2022-03-19 06:15:05 Test Item Value Reference Range Interpretation Comments POCT GLU (test code = 5901365641) 593 mg/dL 70-110 HH Lab Interpretation (test code = Abnormal 39829-9) [facility] GLUCOSE (AUTOMATED)2022-03-19 06:15:05 Test Item Value Reference Range Interpretation Comments POCT GLU (test code = 9848407119) 593 mg/dL 70-110 HH Lab Interpretation (test code = Abnormal 72831-6) [facility] GLUCOSE(AGE >30DAYS)2022-03-19 06:15:00 Test Item Value Reference Range Interpretation Comments POCT Glu (age>30days) (test code = 593 mg/dL 70-110 A 3342) Lab Interpretation (test code = Abnormal 15873-7) [facility] GLUCOSE(AGE >30DAYS)2022-03-19 06:15:00 Test Item Value Reference Range Interpretation Comments POCT Glu (age>30days) (test code = 593 mg/dL 70-110 A 3342) Lab Interpretation (test code = Abnormal 51295-7) [facility] GLUCOSE(AGE >30DAYS)2022-03-19 06:15:00 Test Item Value Reference Range Interpretation Comments POCT Glu (age>30days) (test code = 593 mg/dL 70-110 A 3342) Lab Interpretation (test code = Abnormal 51298-7) [facility] GLUCOSE(AGE >30DAYS)2022-03-19 06:15:00 Test Item Value Reference Range Interpretation Comments POCT Glu (age>30days) (test code = 593 mg/dL 70-110 A 3342) Lab Interpretation (test code = Abnormal 80283-4) [facility] HEMOGLOBIN A1C [id number] 21:05:00 Test Item Value Reference Range Interpretation Comments POCT HBA1C (test code = 4548-4) 14 % 4-6 A Lab Interpretation (test code = Abnormal 73891-0) [facility] HEMOGLOBIN A1C [id number] 21:05:00 Test Item Value Reference Range Interpretation Comments POCT HBA1C (test code = 4548-4) 14 % 4-6 A Lab Interpretation (test code = Abnormal 28867-9) [facility] [id number] 21:05:00 Test Item Value Reference Range Interpretation Comments POCT HBA1C (test code = 4548-4) 14 % 4-6 A Lab Interpretation (test code = Abnormal 08773-9) [facility]"
[2022-04-19 14:23] LABS: Urine Blood Trace-intact (Negative); Urine Glucose Trace (Negative); Urine Protein 2+ (Negative); Urine Specific Gravity 1.025 (1.005-1.030)
[2022-04-19 14:30] LABS: ALT/SGPT 14 U/L (12-78); Albumin 2.7 g/dL (3.4-5.0); Alkaline Phosphatase 135 U/L (45-117); BUN Blood Urea Nitrogen 23 mg/dL (7-18); Bicarbonate 21 mmol/L (21-32); Bilirubin Total 0.5 mg/dL (0.2-1.0); Glomerular Filtration Rate 60 ml/min (=/>90); Glucose Level 256 mg/dL (74-106); Lipase 82 U/L (73-393); Protein, Total 8.5 g/dL (6.4-8.2); Sodium Level 133 mmol/L (136-145)
[2022-04-19 14:31] LABS: AST/SGOT 17 U/L (15-37); Potassium 4.9 mmol/L (3.5-5.1)
[2022-04-19 14:33] LABS: Troponin High Sensitivity 86.1 pg/mL (<58.9)
[2022-04-19 14:38] LABS: Urine Bacteria <20 /HPF (<20); Urine Crystals Unidentified Few /HPF (None Seen); Urine Mucus 1+ /HPF (None Seen); Urine RBC <5 /HPF (None Seen); Urine WBC Clump Occasional /HPF (None Seen)
[2022-04-19 14:38] LABS: Hematocrit 36.6 % (36.0-45.0); MCV 87.4 fL (80-100); RBC Red Blood Cell Count 4.19 M/uL (3.86-4.86)
[2022-04-19 14:39] LABS: Absolute Lymphocytes (CBC) 2.5 K/uL (0.7-4.9); Lymphocytes % 20.2 % (15.3-44.8); MPV 8.6 fL (7.6-11.3)
[2022-04-19] MEDS ORDERED: DIPHENHYDRAMINE 50 MG/ML VIAL ONE (14:42)
[2022-04-19] MEDS ORDERED: NA CHLORIDE 0.9% 500 ML ONE (14:42)
[2022-04-19] MEDS ORDERED: METOCLOPRAMIDE 10 MG/2mL INJ ONE (14:42)
--- NOTE | 2022-04-19 15:31 | EDPHYS ---
Physician Documentation [facility] Name: Karen Shah Age: 51 yrs Sex: Female : 1970 Arrival Date: 04/19/2022 Time: 13:10 Bed 15 Private MD: ED Physician Izaiah Rogers HPI: 04/19 14:14 This 51 yrs old Female presents to ER via Unassigned with complaints of rt Abdominal Pain, Nausea/Vomiting. 14:14 Onset: The symptoms/episode began/occurred yesterday. The symptoms are aggravated by rt nothing. The symptoms are alleviated by nothing. Associated signs and symptoms: Pertinent positives: abdominal pain. Severity of symptoms: At their worst the symptoms were moderate. Patient was recently mated to the hospital with nausea, vomiting, abdominal pain. After improvement of the patient's symptoms, was subsequently discharged 1 day later, which was yesterday. The patient states that she was feeling well until yesterday evening when she developed a nausea, vomiting. She reports that she is unable to tolerate anything by mouth at this time. She also reports abdominal pain, similar to the pain that she was admitted for previously. She states that her Ríos catheter is draining of urine. Denies other acute complaints at this time, symptoms are moderate in severity, no other aggravating or alleviating factors.. Historical: - Allergies: 15:17 Adhesives; ko1 15:17 Toradol; ko1 15:17 tramadol; ko1 - PMHx: 15:17 angina pectoris; CAD; CVA; Diabetes - IDDM; High Cholesterol; Hypertension; Myocardial ko1 infarction; Seizures; - PSHx: 15:17 Bilateral AKA; CABG x 2; section; Ligation of fallopian tube; right AKA; ko1 Tonsillectomy; - Immunization history:: Adult Immunizations up to date. - Family history:: not pertinent. - Social history:: Smoking status: Patient denies any tobacco usage or history of. ROS: 14:14 Constitutional: Negative for fever, chills, and weight loss, Eyes: Negative for injury, rt pain, redness, and discharge, ENT: Negative for injury, pain, and discharge, Neck: Negative for injury, pain, and swelling, Cardiovascular: Negative for chest pain, palpitations, and edema, Respiratory: Negative for shortness of breath, cough, wheezing, and pleuritic chest pain, MS/Extremity: Negative for injury and deformity, Skin: Negative for injury, rash, and discoloration, Neuro: Negative for headache, weakness, numbness, tingling, and seizure, Psych: Negative for depression, anxiety, suicide ideation, homicidal ideation, and hallucinations. 14:14 Abdomen/GI: Positive for abdominal pain, nausea and vomiting. Exam: 14:14 Constitutional: This is a well developed, well nourished patient who is awake, alert, rt and in no acute distress. Head/Face: Normocephalic, atraumatic. Eyes: Pupils equal round and reactive to light, extra-ocular motions intact. Lids and lashes normal. Conjunctiva and sclera are non-icteric and not injected. Cornea within normal limits. Periorbital areas with no swelling, redness, or edema. ENT: Nares patent. No nasal discharge, no septal abnormalities noted. Tympanic membranes are normal and external auditory canals are clear. Oropharynx with no redness, swelling, or masses, exudates, or evidence of obstruction, uvula midline. Mucous membranes moist. Neck: Trachea midline, no thyromegaly or masses palpated, and no cervical lymphadenopathy. Supple, full range of motion without nuchal rigidity, or vertebral point tenderness. No Meningismus. Chest/axilla: Normal chest wall appearance and motion. Nontender with no deformity. No lesions are appreciated. Cardiovascular: Regular rate and rhythm with a normal S1 and S2. No gallops, murmurs, or rubs. Normal PMI, no JVD. No pulse deficits. Respiratory: Lungs have equal breath sounds bilaterally, clear to auscultation and percussion. No rales, rhonchi or wheezes noted. No increased work of breathing, no retractions or nasal flaring. Skin: Warm, dry with normal turgor. Normal color with no rashes, no lesions, and no evidence of cellulitis. Neuro: Awake and alert, GCS 15, oriented to person, place, time, and situation. Cranial nerves II-XII grossly intact. Motor strength 5/5 in all extremities. Sensory grossly intact. Cerebellar exam normal. Normal gait. Psych: Awake, alert, with orientation to person, place and time. Behavior, mood, and affect are within normal limits. 14:14 Abdomen/GI: mild Tenderness diffusely without rebound, guarding, distention. 14:14 : Ríos catheter in place. 14:14 Musculoskeletal/extremity: Status post bilateral [id number] amputations.. 15:48 ECG was reviewed by the Attending Physician. rt Vital Signs: 13:11 BP 101 / 75; Pulse 116; Resp 16; Temp 98.2(O); Pulse Ox 100% on R/A; ko1 13:30 BP 110 / 84; Pulse 111; Pulse Ox 100% on R/A; ko1 14:00 BP 108 / 76; Pulse 115; Pulse Ox 100% on R/A; ko1 14:30 BP 110 / 79; Pulse 118; Pulse Ox 100% ; ko1 15:00 BP 113 / 83; Pulse 118; Pulse Ox 100% on R/A; ko1 MDM: 13:15 Patient medically screened. rt 15:31 Differential diagnosis: Nonspecific abd pain, gastritis, pancreatitis, gastroenteritis, rt ACS, Gastroparesis. Data reviewed: vital signs, nurses notes, old medical records, lab test result(s), EKG, radiologic studies. ED course: Patient presents to the ED with nausea, vomiting, was recent admitted for the same. Patient's troponin is elevating over baseline. No acute ischemic changes on the EKG, patient with mild hyperglycemia without DKA. Symptoms are improving with Reglan, possibility the patient has gastroparesis. Patient will be admitted for further trending of the troponins.. 04/19 13:26 Order name: CBC with Diff rt 04/19 13:26 Order name: CMP; Complete Time: 14:59 rt 04/19 13:26 Order name: Lipase; Complete Time: 14:59 rt 04/19 13:26 Order name: Urine Microscopic Only; Complete Time: 14:59 rt 04/19 13:26 Order name: Ketone, Serum; Complete Time: 14:59 rt 04/19 13:26 Order name: Troponin High Sensitivity; Complete Time: 14:59 rt 04/19 13:27 Order name: Glucose; Complete Time: 14:59 rt 04/19 14:24 Order name: Urine Dipstick-Ancillary; Complete Time: 14:59 EDMS 04/19 14:55 Order name: Urine Culture EDMS 04/19 15:59 Order name: SARS-COV-2 Antigen Rapid bd 04/19 16:40 Order name: SARS-COV-2 Antigen Rapid EDMS 04/19 17:35 Order name: Glucose, Ancillary Testing EDMS 04/19 18:04 Order name: US EDMS 04/19 18:39 Order name: CT EDMS 04/19 13:26 Order name: IV Saline Lock; Complete Time: 14:50 rt 04/19 13:26 Order name: Labs collected and sent; Complete Time: 14:50 rt 04/19 13:26 Order name: Urine Dipstick-Ancillary (obtain specimen); Complete Time: 14:24 rt 04/19 13:26 Order name: Urine Test (obtain specimen); Complete Time: 14:24 rt 04/19 13:28 Order name: Bladder Scanner; Complete Time: 13:49 rt 04/19 14:17 Order name: EKG; Complete Time: 14:17 rt 04/19 14:17 Order name: EKG - Nurse/Tech; Complete Time: 15:04 rt 04/19 14:27 Order name: Social Service Consult EDMS EC:48 Rate is 119 beats/min. Rhythm is regular, Sinus tachycardia with No ectopy. QRS [place] is rt Normal. CA interval is normal. QT interval is prolonged at 514 msec. No Q waves. T waves are Normal. Interpreted by me. Administered Medications: 14:48 Drug: NS 0.9% 500 ml Route: IV; Rate: 1 bolus; Site: right antecubital; ko1 14:48 Drug: Reglan (metoCLOPramide) 10 mg Route: IVP; Site: right antecubital; ko1 14:50 Drug: Benadryl (diphenhydrAMINE) 25 mg Route: IVP; Site: right antecubital; ko1 Disposition Summary: 04/19/22 15:30 Hospitalization Ordered Hospitalization Status: Observation rt Provider: Gregorio Frias rt Location: Telemetry/MedSurg (observation) rt Condition: Stable rt Problem: an ongoing problem rt Symptoms: have improved rt Bed/Room Type: Standard rt Room Assignment: 219(04/19/22 17:36) dw Diagnosis - Nausea with vomiting, unspecified rt Forms: - Medication Reconciliation Form rt - SBAR form rt Signatures: [facility] Aparna Johnson RN RN dw Oliver, Kathy, RN RN ko1 Izaiah Rogers MD MD rt Corrections: (The following items were deleted from the chart) 17:36 15:30 rt dw
--- NOTE | 2022-04-19 15:31 | ER ---
Nurse's Notes [facility] Name: Karen Shah Age: 51 yrs Sex: Female : 1970 Arrival Date: 04/19/2022 Time: 13:10 Bed 15 Private MD: Diagnosis: Nausea with vomiting, unspecified Historical: - Allergies: 04/19 15:17 Adhesives; ko1 15:17 Toradol; ko1 15:17 tramadol; ko1 - PMHx: 15:17 angina pectoris; CAD; CVA; Diabetes - IDDM; High Cholesterol; Hypertension; Myocardial ko1 infarction; Seizures; - PSHx: 15:17 Bilateral AKA; CABG x 2; section; Ligation of fallopian tube; right AKA; ko1 Tonsillectomy; - Immunization history:: Adult Immunizations up to date. - Family history:: not pertinent. - Social history:: Smoking status: Patient denies any tobacco usage or history of. Screenin:30 Abuse screen: Denies threats or abuse. Denies injuries from another. Nutritional ko1 screening: No deficits noted. Tuberculosis screening: No symptoms or risk factors identified. Fall Risk None identified. Assessment: 13:30 General: Appears in no apparent distress. uncomfortable, ill, Behavior is cooperative, ko1 appropriate for age, anxious. Pain: Complains of pain in right lower quadrant. Neuro: No deficits noted. Cardiovascular: Rhythm is sinus tachycardia. Respiratory: No deficits noted. GI: Bowel sounds present X 4 quads. Abd is soft and non tender X 4 quads. : No deficits noted. EENT: No deficits noted. Derm: No deficits noted. Musculoskeletal: No deficits noted. Vital Signs: 13:11 BP 101 / 75; Pulse 116; Resp 16; Temp 98.2(O); Pulse Ox 100% on R/A; ko1 13:30 BP 110 / 84; Pulse 111; Pulse Ox 100% on R/A; ko1 14:00 BP 108 / 76; Pulse 115; Pulse Ox 100% on R/A; ko1 14:30 BP 110 / 79; Pulse 118; Pulse Ox 100% ; ko1 15:00 BP 113 / 83; Pulse 118; Pulse Ox 100% on R/A; ko1 ED Course: 13:10 Patient arrived in ED. ko1 13:10 Izaiah Rogers MD is Attending Physician. rt 13:10 Nona Phillips, RN is Primary Nurse. ko1 13:30 No provider procedures requiring assistance completed. Inserted saline lock: 20 gauge ko1 in right antecubital area, using aseptic technique. 13:30 Patient has correct armband on for positive identification. Bed in low position. Call ko1 light in reach. Side rails up X2. Client placed on continuous cardiac and pulse oximetry monitoring. NIBP monitoring applied. cardiac monitor technician on. Door closed. Noise minimized. Lights dimmed. Warm blanket given. Pillow given. Head of bed elevated. 13:50 Bladder scan completed. 0 cc. ko1 14:24 Urine Microscopic Only Sent. ko1 15:30 Gregorio Frias MD is Hospitalizing Provider. rt Administered Medications: 14:48 Drug: NS 0.9% 500 ml Route: IV; Rate: 1 bolus; Site: right antecubital; ko1 14:48 Drug: Reglan (metoCLOPramide) 10 mg Route: IVP; Site: right antecubital; ko1 14:50 Drug: Benadryl (diphenhydrAMINE) 25 mg Route: IVP; Site: right antecubital; ko1 Outcome: 15:30 Decision to Hospitalize by Provider. rt 18:49 Patient left the ED. ko1 Signatures: Nona Phillips, RN RN ko1 Izaiah Rogers MD MD rt
[2022-04-19] MEDS ORDERED: ACETAMINOPHEN 325 MG TABLET PO PRN (15:54)
[2022-04-19] MEDS ORDERED: GLUCAGON 1 MG/VIAL IM PRN ×2 (16:07→19:30)
[2022-04-19] MEDS ORDERED: D50W 25 GM/50 ML SYRINGE IV PRN ×2 (16:07→19:30)
--- NOTE | 2022-04-19 16:08 | P.HP ---
Certification for Inpatient Patient admitted to: Observation With expected LOS: <2 Midnights Patient will require the following post-hospital care: None Practitioner: I am a practitioner with admitting privileges, knowledge of patient current condition, hospital course, and medical plan of care. Services: Services provided to patient in accordance with Admission requirements found in Title 42 Section 412.3 of the Code of Federal Regulations <Karen Dia - Last Filed: 04/19/22 19:55> Patient History Date of Service: 04/19/22 Reason for admission: N\V\abdominal pain History of Present Illness: Patient is a 51-year-old female with a past medical history significant for CAD, CVA, DM 2, CABG, HLD, hypertension, MA, seizures, bilateral AKA who presents with complaint of nausea and abdominal pain onset 4 days ago. Patient was seen in the hospital and discharged yesterday for similar symptoms. Patient reported that she go home and was okay until late at night when patient started having symptoms. Patient indicated abdominal pain is located in the periumbilical area. Patient rated pain as 10/10 in severity and described pain as sharp in quality. Patient reported that she has not been able to keep any p.o. intake down. Patient reported associated signs and symptoms of headache and vomiting. Patient denies any other signs or symptoms. Symptoms are aggravated or relieved by nothing. Patient decided to present to the hospital due to worsening symptoms. - Past Medical/Surgical History Diabetic: Yes -: Coronary artery disease -: Type 2 Diabtes- Insulin Dependent -: Chronic systolic congestive heart failure -: Hypertension -: CVA -: PAD -: Hypertension -: GERD -: chf -: recurrent yeast infection -: triple bypass (heart) 2012 -: 2 C-Sections -: double bypass 2015 -: 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 -: Below knee amputation 2014 -: Above knee amputation 2014 -: Eye surgery for detached retina 2015 Psychosocial/ Personal History: Patient lives at home with her family - Family History Father -: Heart disease, Hypertension, Diabetes Notes: Pt's father of an MA Mother -: Other (see notes) Notes: hyperlipidemia Brother -: Diabetes Notes: Brother recently diagnosed in 2016 Sister -: Hypertension - Social History Smoking Status: Never smoker Alcohol use: No CD- Drugs: Yes Caffeine use: No Place of Residence: Home <Karen Dia - Last Filed: 04/19/22 19:55> Date of Service: 04/20/22 <Gregorio Frias - Last Filed: 04/20/22 14:45> Allergies tramadol Allergy (Mild, Verified 04/20/22 00:40) Hives/Rash adhesive tape Allergy (Verified 04/20/22 00:40) Hives ketorolac [From Toradol] Allergy (Verified 04/20/22 00:40) Hives/Rash Home Medications: RX: Clopidogrel Bisulfate [Plavix] 75 mg PO DAILY #30 tablet 05/16/17 RX: Gabapentin 800 mg PO TID 07/18/20 RX: Aspirin [Vazalore] 81 mg PO DAILY 10/04/21 RX: Atorvastatin Calcium [Lipitor] 80 mg PO BEDTIME 10/04/21 RX: Mirtazapine 15 mg PO BEDTIME 10/04/21 RX: Acetaminophen [Tylenol Extra Strength] 500 mg PO Q4H PRN 04/05/22 RX: Baclofen 5 mg PO BID 04/05/22 RX: Ezetimibe [Zetia] 10 mg PO DAILY 04/05/22 RX: Hydrocodone 5/APAP 325 [[place] 5/325*] 1 tab PO Q4H PRN 04/05/22 RX: Melatonin 3 mg PO BEDTIME PRN 04/05/22 RX: Ondansetron [Zofran (Odt)*] 4 mg PO Q8H PRN 04/05/22 RX: Pantoprazole Sodium [Protonix] 40 mg PO DAILY 04/05/22 RX: Semaglutide [Ozempic] 0.25 mg SQ SEECOM 04/05/22 RX: Sennosides/Docusate Sodium [Senna-S Tablet] 2 tab PO BEDTIME 04/05/22 RX: Apixaban [Eliquis *] 2.5 mg PO BID #60 04/13/22 RX: Calcium Carbonate/Vitamin D3 [Oscal 500 + Vit D 200 Iu Tab*] 1 tab PO DAILY #30 tab 04/13/22 RX: Cyanocobalamin [Vitamin B-12*] 1,000 mcg PO DAILY #30 tab 04/13/22 RX: Ferrous Sulfate [Ferrous Sulfate*] 325 mg PO BID #60 tab 04/13/22 RX: Furosemide [Lasix*] 20 mg PO DAILY PRN #30 tab 04/13/22 RX: Hydrocodone 5/APAP 325 [Belk 5/325*] 1 tab PO Q4H PRN tab 04/13/22 RX: Lidocaine 4% Patch [Lidoderm 5% Patch*] 1 patch TOP DAILY patch 04/13/22 RX: Loperamide [Imodium*] 4 mg PO Q4H PRN cap 04/13/22 RX: Megestrol [Megace*] 40 mg PO DAILY #30 tab 04/13/22 RX: Melatonin [Melatonin*] 3 mg PO BEDTIME PRN PRN 04/13/22 RX: Metoprolol Succinate [Toprol Xl*] 25 mg PO DAILY #30 tab 04/13/22 RX: Nitroglycerin [Nitrostat*] 0.4 mg SL UD PRN tab 04/13/22 RX: PE-Ep/Mo/Slov/Pet [Formulation R*] 1 appl FL BID PRN #1 tube 04/13/22 RX: Potassium Oral Tab [Klor-Con 10 mEq Tab*] 10 meq PO DAILY #30 tab 04/13/22 RX: Insulin 70/30 NPH/Reg Human [Novolin 70/30*] 26 unit SQ BIDWM #1 ml 04/14/22 Amox/Clavulanate [Augmentin 875-125 Tab] 875 mg PO BID 7 Days #14 tab 04/18/22 Review of Systems General: Unremarkable Eyes: Unremarkable ENT: As per HPI Respiratory: Unremarkable Cardiovascular: Unremarkable Gastrointestinal: Nausea, Vomiting, Abdominal Pain Genitourinary: Other (Urinary retention.) Musculoskeletal: Unremarkable Integumentary: Other (Left AKA stump wound.) Neurological: Other (Headache.) Lymphatics: Unremarkable <Karen Dia E - Last Filed: 04/19/22 19:55> Physical Examination - Physical Exam General: Alert, Oriented x3, Mild distress HEENT: Atraumatic, PERRLA, Mucous membr. moist/pink, EOMI, Sclerae nonicteric Neck: Supple, 2+ carotid pulse no bruit, No LAD, Without JVD or thyroid abnormality Respiratory: Diminished Cardiovascular: No edema, Normal pulses, Normal S1 S2 Capillary refill: <2 Seconds Gastrointestinal: Hypoactive, Non-distended, Tenderness Musculoskeletal: No clubbing, Other (Bilateral AKA.) Integumentary: Skin breakdown, Tenderness/swelling, Other (Left stump BKA wound.) Neurological: Normal speech, Normal tone, Sensation intact, Normal affect Lymphatics: No axilla or inguinal lymphadenopathy Urinary: Ríos catheter - Studies Laboratory Data (last 24 hrs) 04/19/22 14:00: Glucose 268 H 04/19/22 14:00: Sodium 133 L, Potassium 4.9, BUN 23 H, Creatinine 1.13, Glucose 256 H, Total Bilirubin 0.5, AST 17, ALT 14, Alkaline Phosphatase 135 H, Lipase 82 04/19/22 14:00: WBC 12.60 H, Hgb 12.1, Hct 36.6, Plt Count 642 H <Karen Dia - Last Filed: 04/19/22 19:55> - Studies Laboratory Data (last 24 hrs) 04/19/22 14:00: WBC 12.60 H, Hgb 12.1, Hct 36.6, Plt Count 642 H <Gregorio Frias - Last Filed: 04/20/22 14:45> Assessment and Plan - Plan --Abdominal pain. Abdominal ultrasound pending. We will manage pain with current pain medication regimen. --UTI POA. Continue antibiotics. Urine cultures pending. -- Bilateral AKA. Continue supportive care. --Left AKA stump wound. Wound care consulted. Continue antibiotics. We will await further recommendations. --Nausea and vomiting. Antiemetic on board continue supportive care --Hypertension. Stable. Continue home medications --History of MA\CVA\CAD\CABG\PAD. Continue aspirin, Eliquis, Plavix and statin.. --DM2. BS monitoring with sliding scale insulin. Continue NPH. --HLD. Continue statin. --Elevated troponin. Likely secondary to demand ischemia. Telemetry to monitor for any significant arrhythmia. We will continue to trend troponin levels. --GERD. Continue Protonix. --ALIZE. Continue ferrous sulfate. -- Urinary retention. Continue Ríos catheter care. Patient to follow-up with outpatient urologist for further management. --Suspected pneumonia. Noted on CT chest. Patient placed on antibiotics, continue O2 therapy as needed. --Insomnia. Continue home medications. --History of seizures. Seizure precautions. Continue home medication. --Acute pain. We will manage pain with current pain medication regimen. --DVT prophylaxis with Eliquis. Discharge Plan: [facility] Plan to discharge in: 48 Hours - Advance Directives Does patient have a Living Will: No Does patient have a Durable POA for Healthcare: No - Code Status/Comfort Care Code Status Assessed: Yes Physician Review: Patient Assessed, Agree with Above Assessment and Plan Critical Care: No <Karen Dia - Last Filed: 04/19/22 19:55> Physician Review: Patient Assessed, Agree with Above Assessment and Plan <Gregorio Frias - Last Filed: 04/20/22 14:45>
[2022-04-19] MEDS ORDERED: DEXTROSE 10%-WATER 125 ML IV PRN (16:24)
[2022-04-19] MEDS: INSULIN -REGULAR HUMAN 50 UNIT/0.5 ML ML SQ SCH ×4 (16:30→21:30)
[2022-04-19 16:40] LABS: SARS-CoV-2 Antigen Rapid Res Negative (Negative)
[2022-04-19 17:03] VITALS: BMI 17.2
[2022-04-19] MEDS ORDERED: INSULIN -REGULAR HUMAN 50 UNIT/0.5 ML ML ONE (17:39)
[2022-04-19] MEDS ORDERED: INSULIN -REGULAR HUMAN 50 UNIT/0.5 ML ML SQ SCH (17:53)
[2022-04-19] MEDS: ONDANSETRON 4 MG/2 ML VIAL IV PRN (17:56)
[2022-04-19] MEDS ORDERED: ONDANSETRON 4 MG/2 ML VIAL ONE (18:00)
--- NOTE | 2022-04-19 18:03 | RAD REPORT ---
EXAM DESCRIPTION: US - Abdomen Exam Complete - 04/19/2022 5:52 pm CLINICAL HISTORY: abdominal pain COMPARISON: Abdomen Pelvis Wo Contrast dated 04/17/2022 FINDINGS: No aortic aneurysm. Only partially visualized. The liver has a homogeneous echotexture. The portal vein is patent. The IVC at the level of the liver is unremarkable. No ascites. The gallbladder is unremarkable. No pericholecystic fluid, wall thickening, or gallstones identified. No biliary ductal dilatation. The pancreas was obscured. The right kidney measures 8.4 cm increased echotexture. No hydronephrosis. No suspicious masses. The left kidney measures 8.4 cm with increased echotexture. No hydronephrosis. No suspicious masses. The spleen is obscured. IMPRESSION: Increased echogenicity of the kidneys bilaterally consistent medical renal disease. No h ydronephrosis. Negative for cholelithiasis or acute cholecystitis.
--- NOTE | 2022-04-19 18:38 | RAD REPORT ---
EXAM DESCRIPTION: CT - Thorax Wo Con - 04/19/2022 6:20 pm CLINICAL HISTORY: opacity on lung per CT A/P COMPARISON: Chest Abd Pelvis Wo Con dated 04/14/2021; THORAX W CONTRAST dated 12/19/2012; Abdomen P latesha Wo Contrast dated 04/17/2022 FINDINGS: Chest Wall: No suspicious thyroid nodules or pathologic lymphadenopathy. Lungs: Minimal micro nodularity in the left lower lobe. Pleura: No significant effusions or pneumothorax. Mediastinum/devon: No pathologic lymphadenopathy. Pulmonary arteries/Aorta: Limited evaluation without contrast. No aortic aneurysm. Heart: No significant pericardial effusion. Normal heart size. Upper abdomen: No acute abnormality. Bones: No acute abnormality. Sternotomy. All CT scans are performed using dose optimization technique as appropriate and may include automated exposure control or mA/KV adjustment according to patient size. IMPRESSION: Mild micronodularity in left lower lobe which would be consistent with infectious or inf lammatory process. It may be subclinical.
[2022-04-19] MEDS ORDERED: MELATONIN 3 MG TABLET PO PRN (19:30)
[2022-04-19] MEDS ORDERED: NITROGLYCERIN 0.4 MG/TAB SL PRN (19:30)
[2022-04-19] MEDS ORDERED: FUROSEMIDE 20 MG TABLET PO PRN (19:30)
[2022-04-19] MEDS ORDERED: MELATONIN 3 MG PO PRN (19:30)
[2022-04-19] MEDS ORDERED: FORMULATION-R RECTAL 57GM PR PRN (19:30)
[2022-04-19 19:46] LABS: Blood Morphology Comment NOT SEEN (NOT SEEN); Platelet Estimate INCR
[2022-04-19] MEDS ORDERED: D10W 125 ML IV PRN (20:03)
[2022-04-19] MEDS: FENTANYL CITR 100 MCG/2 ML IV PRN (20:31)
[2022-04-19] MEDS: Magnesium Sulfate 2gm IVPB 2 G/50 ML BAG IV ONE (20:31)
[2022-04-19 20:42] LABS: Magnesium 1.5 mg/dL (1.8-2.4); Phosphorus 3.1 mg/dL (2.5-4.9); Thyroid Stimulating Hormone 2.75 uIU/mL (0.360-3.740)
[2022-04-19] MEDS ORDERED: DOCUSATE NA/SENNA CONC 1 TAB PO SCH (21:00)
[2022-04-19] MEDS ORDERED: ATORVASTATIN 40 MG TAB PO SCH (21:00)
[2022-04-19] MEDS ORDERED: MIRTAZAPINE 15 MG TAB PO SCH (21:00)
[2022-04-19] MEDS: GABAPENTIN 400 MG CAP PO SCH (21:31)
[2022-04-19] MEDS: FERROUS SULFATE 325 MG TAB PO SCH (21:31)
[2022-04-19] MEDS: DOCUSATE NA 100 MG CAP PO SCH (21:31)
[2022-04-19] MEDS: BACLOFEN 10 MG TAB PO SCH (21:31)
[2022-04-19] MEDS: APIXABAN 2.5 MG TABLET PO SCH (21:33)
[2022-04-19] MEDS ORDERED: methocarbamoL 500 MG TAB PO PRN (23:44)
[2022-04-20] MEDS ORDERED: METOCLOPRAMIDE 10MG/10ML UCUP PO SCH
[2022-04-20] MEDS: FENTANYL CITR 100 MCG/2 ML IV PRN ×2 (00:16→09:16)
[2022-04-20] MEDS: METOCLOPRAMIDE 5 MG TAB PO SCH ×4 (00:16→17:29)
[2022-04-20] MEDS: Magnesium Sulfate 2gm IVPB 2 G/50 ML BAG IV ONE (00:17)
[2022-04-20] MEDS: AZITHROMYCIN IV 500 MG in NA CHLORIDE 0.9% 250 ML IVPB SCH ×2 (00:30→09:09)
[2022-04-20 02:22] LABS: Absolute Lymphocytes (CBC) 1.6 K/uL (0.7-4.9); Hematocrit 31.2 % (36.0-45.0); Lymphocytes % 15.6 % (15.3-44.8); MCV 86.5 fL (80-100)
[2022-04-20 02:24] LABS: Potassium 3.8 mmol/L (3.5-5.1)
[2022-04-20 07:16] VITALS: O2SAT 94
[2022-04-20] MEDS ORDERED: CEFTRIAXONE 1000 MG/VIAL ONE (08:54)
[2022-04-20] MEDS ORDERED: POTASSIUM CL SA 10 MEQ TAB PO SCH (09:00)
[2022-04-20] MEDS ORDERED: EZETIMIBE 10 MG TAB PO SCH (09:00)
[2022-04-20] MEDS ORDERED: MEGESTROL 40 MG TAB PO SCH (09:00)
[2022-04-20] MEDS ORDERED: METOPROLOL XL 25 MG TAB PO SCH (09:00)
[2022-04-20] MEDS ORDERED: CALCIUM CARB 500MG/VIT D 200 IU TAB PO SCH (09:00)
[2022-04-20] MEDS ORDERED: CLOPIDOGREL 75 MG TABLET PO SCH (09:00)
[2022-04-20] MEDS ORDERED: PANTOPRAZOLE 40MG TABLET PO SCH (09:00)
[2022-04-20] MEDS ORDERED: CYANOCOBALAMIN 1,000 MCG TAB PO SCH (09:00)
[2022-04-20] MEDS ORDERED: CEFTRIAXONE 1,000 MG in NA CHLORIDE 0.9% 50 ML IVPB SCH (09:00)
[2022-04-20] MEDS ORDERED: ASPIRIN EC 81 MG TAB PO SCH (09:00)
[2022-04-20] MEDS ORDERED: POTASSIUM CL SA 10 MEQ TAB PO ONE (09:00)
[2022-04-20] MEDS: INSULIN 70/30 100 UNITS/ML SQ SCH ×2 (09:05→16:18)
[2022-04-20] MEDS: INSULIN -REGULAR HUMAN 50 UNIT/0.5 ML ML SQ SCH ×3 (09:05→16:11)
[2022-04-20] MEDS: GABAPENTIN 400 MG CAP PO SCH ×2 (09:06→14:55)
[2022-04-20] MEDS: BACLOFEN 10 MG TAB PO SCH (09:06)
[2022-04-20] MEDS: APIXABAN 2.5 MG TABLET PO SCH (09:07)
[2022-04-20] MEDS: DOCUSATE NA 100 MG CAP PO SCH (09:08)
[2022-04-20] MEDS: FERROUS SULFATE 325 MG TAB PO SCH (09:08)
[2022-04-20] MEDS: ONDANSETRON 4 MG/2 ML VIAL IV PRN (09:16)
--- NOTE | 2022-04-20 11:36 | EKG ---
Test Date: 2022-04-19 Test Time: 15:00:07 Sales Program Manager: GLORIA MEASUREMENT RESULTS: Intervals: Rate: 119 IL: 118 QRSD: 72 QT: 366 QTc: 514 [place]: P: 77 IL: 118 QRS: 62 T: -4 INTERPRETIVE STATEMENTS: Sinus tachycardia Lateral infarct, age undetermined Abnormal ECG Compared to ECG 04/17/2022 07:57:29 T-wave abnormality no longer present Possible ischemia no longer present Myocardial infarct finding still present Electronically Signed On 04-20-22 11:34:35 DBA DEVELOPER by Griffin Mejia
--- NOTE | 2022-04-20 16:16 | P.DS ---
Admission Date: 04/19/22 Discharge Date: 04/20/22 Disposition: TRANSFER TO [facility] Discharge Condition: GOOD Reason for Admission: N\\V\\abdominal pain Consultations: 1. Cardiology Hospital Course: DIAGNOSES: # Intractable Abdominal Pain, Nausea, Vomiting suspect due to Diabetic Gastroparesis # Type II Non-ST Segment Elevation Myocardial Infarction (Demand Ischemia) # Significant Urinary Retention suspect secondary to Neurogenic Bladder s/p Ríos Catheter Placement # Poorly Controlled Type I Diabetes Mellitus # Suspect Subclinical Mild Left Lower Lobe Micronodularity # S/P Bilateral Lower Extremity Amputations # Coronary Artery Disease s/p CABG # Chronic Compensated Systolic Congestive Heart Failure # History of Cerebrovascular Accident # Peripheral Artery Disease # Hypertension # Hyperlipidemia # Seizure Disorder # Gastroesophageal Reflux Disease HOSPITAL COURSE: Ms. Nicci Shah is a 51 year old female with a past medical history signif icant for coronary artery disease s/p CABG, type 1 diabetes mellitus, chronic systolic congestive heart failure, prior cerebrovascular accident, peripheral arterial disease, bilateral lower extremity amputations, hypertension, hyperlipidemia, and seizure disorder who was admitted to the [facility] on 04/19/2022 for abdominal pain, nausea, and vomiting. She was admitted to the Medicine service. Upon further evaluation, her abdominal ultrasound revealed, "increased echogenicity of the kidneys bilaterally consistent medical renal disease. No hydronephrosis. Negative for cholelithiasis or acute cholecystitis." Her CT chest revealed, "mild micronodularity in left lower lobe which would be consistent with infectious or inflammatory process. It may be subclinical." She was placed NPO, started on IV fluids, and treated with metoclopramide. Over the course of her hospitalization, we are able to advance her diet and she was able to tolerate diet without any abdominal pain, nausea, or vomiting. Per nursing staff, she was able to tolerate a chicken nugget meal from [employer]. She endorsed concern about her mobility at home given her bilateral amputations and Ríos catheter placement. She requested assistance with placement into a correction facility. Physical therapy was consulted and, with the assistance of case management, she was accepted to [facility]. In regards to her NSTEMI, her troponin trend was 86.1 -> 81.8 -> 44.0. Her EKG was reviewed by Dr. Mejia, who reported no STEMI criteria. I spoke with Dr. Thakur, who is currently customer records division supervisor. He has cleared her for discharge with outpatient cardiac stress test. On 04/20/2022, she was seen on morning rounds and deemed medically stable for discharge. She was discharged with instructions to schedule follow-up appointments with her PCP ([facility] Shruthi), with Urology (Dr. Van), with Cardiology (Dr. Mejia), and with Gastroenterology (Dr. Loaiza). She and her were given the opportunity to ask questions and reported no further questions. Furthermore, all questions were answered to the best of my ability. A copy of this discharge summary will be sent to the above providers to facilitate continuity of care. Today, I personally spent 25 minutes on her case, of which greater than 50% of the time was spent in patient education, counseling, and coordination of care as described above. General: Alert, In no apparent distress, Oriented x3 HEENT: Atraumatic, PERRLA, Mucous membr. moist/pink, EOMI, Sclerae nonicteric Neck: Supple, JVD not distended Respiratory: Clear to auscultation bilaterally, Normal air movement Cardiovascular: Regular rate/rhythm, Normal S1 S2, No gallops, No rubs, No murmurs Gastrointestinal: Normal bowel sounds, Soft and benign, Non-distended, No tenderness, No rebound, No guarding Musculoskeletal: Other (s/p bilateral AKA) Integumentary: No rashes Neurological: Normal speech, Cranial nerves 3-12 intact, Normal affect Urinary: Ríos catheter Vital Signs/Physical Exam: Temp Pulse Resp BP Pulse Ox 96.9 F 102 H 18 105/56 L 99 04/20/22 12:00 04/20/22 12:00 04/20/22 12:00 04/20/22 12:00 04/20/22 12:00 Laboratory Data at Discharge: WBC 10.20 K/uL (4.3-10.9) 04/20/22 01:44 Hgb 10.6 g/dL (12.0-15.0) L D 04/20/22 01:44 Hct 31.2 % (36.0-45.0) L 04/20/22 01:44 Plt Count 600 K/uL (152-406) H 04/20/22 01:44 Sodium 135 mmol/L (136-145) L 04/20/22 01:44 Potassium 3.8 mmol/L (3.5-5.1) D 04/20/22 01:44 BUN 23 mg/dL (7-18) H 04/20/22 01:44 Creatinine 0.92 mg/dL (0.55-1.3) 04/20/22 01:44 Glucose 277 mg/dL (74-106) H 04/20/22 01:44 Phosphorus 3.1 mg/dL (2.5-4.9) 04/19/22 19:56 Magnesium 1.9 mg/dL (1.8-2.4) 04/20/22 06:52 Total Bilirubin 0.5 mg/dL (0.2-1.0) 04/19/22 14:00 AST 17 U/L (15-37) 04/19/22 14:00 ALT 14 U/L (12-78) 04/19/22 14:00 Alkaline Phosphatase 135 U/L (45-117) H 04/19/22 14:00 Triglycerides 189 mg/dL (<150) H 04/19/22 19:56 Cholesterol 158 mg/dL (<200) 04/19/22 19:56 HDL Cholesterol 34 mg/dL (40-60) L 04/19/22 19:56 Cholesterol/HDL Ratio 4.65 04/19/22 19:56 Lipase 82 U/L (73-393) 04/19/22 14:00 Home Medications: Clopidogrel Bisulfate [Plavix] 75 mg PO DAILY #30 tablet 05/16/17 Gabapentin 800 mg PO TID 07/18/20 Aspirin [Vazalore] 81 mg PO DAILY 10/04/21 Atorvastatin Calcium [Lipitor] 80 mg PO BEDTIME 10/04/21 Mirtazapine 15 mg PO BEDTIME 10/04/21 Acetaminophen [Tylenol Extra Strength] 500 mg PO Q4H PRN 04/05/22 Baclofen 5 mg PO BID 04/05/22 Ezetimibe [Zetia] 10 mg PO DAILY 04/05/22 Hydrocodone 5/APAP 325 [[place] 5/325*] 1 tab PO Q4H PRN 04/05/22 Melatonin 3 mg PO BEDTIME PRN 04/05/22 Ondansetron [Zofran (Odt)*] 4 mg PO Q8H PRN 04/05/22 Pantoprazole Sodium [Protonix] 40 mg PO DAILY 04/05/22 Semaglutide [Ozempic] 0.25 mg SQ SEECOM 04/05/22 Sennosides/Docusate Sodium [Senna-S Tablet] 2 tab PO BEDTIME 04/05/22 Apixaban [Eliquis *] 2.5 mg PO BID #60 04/13/22 Calcium Carbonate/Vitamin D3 [Oscal 500 + Vit D 200 Iu Tab*] 1 tab PO DAILY #30 tab 04/13/22 Cyanocobalamin [Vitamin B-12*] 1,000 mcg PO DAILY #30 tab 04/13/22 Ferrous Sulfate [Ferrous Sulfate*] 325 mg PO BID #60 tab 04/13/22 Furosemide [Lasix*] 20 mg PO DAILY PRN #30 tab 04/13/22 Lidocaine 4% Patch [Lidoderm 5% Patch*] 1 patch TOP DAILY patch 04/13/22 Loperamide [Imodium*] 4 mg PO Q4H PRN cap 04/13/22 Megestrol [Megace*] 40 mg PO DAILY #30 tab 04/13/22 Melatonin [Melatonin*] 3 mg PO BEDTIME PRN PRN 04/13/22 Metoprolol Succinate [Toprol Xl*] 25 mg PO DAILY #30 tab 04/13/22 Nitroglycerin [Nitrostat*] 0.4 mg SL UD PRN tab 04/13/22 PE-Ep/Mo/Slov/Pet [Formulation R*] 1 appl FL BID PRN #1 tube 04/13/22 Insulin 70/30 NPH/Reg Human [Novolin 70/30*] 26 unit SQ BIDWM #1 ml 04/14/22 Amox/Clavulanate [Augmentin 875-125 Tab*] 875 mg PO BID 7 Days #14 tab 04/18/22 Metoclopramide [Reglan*] 5 mg PO Q6HR tab 04/20/22 Physician Discharge Instructions: 1. Please follow-up with your PCP in 3-5 days after leaving [place] 2. Please keep your Urology appointment with Dr. Van on 05/04/2022 3. Please call and schedule an appointment with Gastroenterology (Dr. Loaiza) in 5-7 days 4. Please call and schedule an appointment with Cardiology (Dr. Mejia) in 5-7 days - You will need to schedule a cardiac stress test at his clinic Diet: ADA Activity: Fall precautions Followup: Griffin Mejia MD [ACTIVE - CAN ADMIT] - Faheem Loaiza MD [ACTIVE - CAN ADMIT] - Mayo Van [ACTIVE - CAN ADMIT] - Time spent managing pt's care (in minutes): 25
[2022-04-20 16:56] VITALS: BP 95/54; TEMP 97.6
== END 2022-04-20 18:16 ==
LOC: ER 13:07 → ERHOLD 15:41 → 2ND 17:58
PROVIDERS: ADMIT Internal Medicine; ATTEND Internal Medicine
DX: R11.2 Nausea with vomiting, unspecified (principal); R10.9 Unspecified abdominal pain; I21.A1 Myocardial infarction type 2; I25.10 Atherosclerotic heart disease of native coronary artery without angina pectoris; I50.22 Chronic systolic (congestive) heart failure; N31.9 Neuromuscular dysfunction of bladder, unspecified; Z86.73 Personal history of transient ischemic attack (TIA), and cerebral infarction without residual deficits; E10.8 Type 1 diabetes mellitus with unspecified complications; Z95.1 Presence of aortocoronary bypass graft; E78.5 Hyperlipidemia, unspecified; I10 Essential (primary) hypertension; I25.2 Old myocardial infarction; R56.9 Unspecified convulsions; N39.0 Urinary tract infection, site not specified; Z89.612 Acquired absence of left leg above knee; Z89.611 Acquired absence of right leg above knee; R77.8 Other specified abnormalities of plasma proteins; K21.9 Gastro-esophageal reflux disease without esophagitis; R33.9 Retention of urine, unspecified; G47.00 Insomnia, unspecified; Z20.822 Contact with and (suspected) exposure to COVID-19; N28.9 Disorder of kidney and ureter, unspecified; I73.9 Peripheral vascular disease, unspecified
CPT/HCPCS: 93005; 85025 ×2; 87086; 80048; 36415 ×2; 82010; 83735 ×2; 82550; 82947 ×6; 84100; 80061; 84443; 83036; 84484 ×3; 84439; 83690; 80053; 83880; 71250; 76700; 97110; 97161; 97530 ×2; 96375; 96374; 99284; 87811; J2765; J1200; J1815 ×5; J0456 ×2; J3010 ×2; J3475; J7050 ×2; J7040; J2405 ×2; G0378 ×3; 81003; 81015; 87088